=== PATIENT | male | born 1955 | race Caucasian/White ===

== ENCOUNTER 2022-12-18 13:29 | Outpatient (OUT) | payer MEDICARE, SELFPAY ==
--- NOTE | 2022-12-18 16:18 | CONS_ITS ---
CONSULTATION DATE: ??12/18/2022 CHIEF COMPLAINT:? Includes severe mid back pain. HISTORY OF PRESENT ILLNESS:? Review of systems, past medical/surgical history were obtained and documented on the health questionnaire and is available upon request. This patient presents to our office in a wheelchair.? At home, he ambulates with the use of a walker.? He reports having pain in the above mentioned area starting two years ago.? It occurred spontaneously, increased gradually to its present state.? Describes it as 5-7/10, deep aching pain character with a sharp component, increased with activities such as standing, walking and performing transitioning maneuvers.? He usually is quite sedentary and, again, ambulates with the use of a walker.? Denies any change in bowel and bladder habits or new sensorimotor changes in the lower extremities. EXAM:? His examination is notable for patient having dysesthesia and hyperesthesia over the distribution of left T8 dermatome, significant myofascial spasm of the thoracic paravertebral muscles as well.? He had nothing to suggest myelopathy involving his lower extremities and nothing to suggest facet loading pain clinically in the thoracolumbar spine on today?s visit, and nothing to suggest pathological fracture of his spinous process of his vertebral body in the thoracolumbar area.? IMPRESSION:? Our impression is patient appears to have chronic pain secondary to possible left T8 thoracic neuritis and myofascial dysfunction.? RECOMMENDATIONS:? I have recommended he undergo a thoracic MRI without contrast.? I have placed him on baclofen 5 mg pills, 1-2 pills b.i.d. as tolerated for his myofascial dysfunction, and aquatic therapy for reconditioning and gait relearning.? Will obtain thoracic spine films as well, PA and lateral views.? Will see the patient back in the office in approximately one month?s time or sooner if needed. As part of providing excellent, safe, comprehensive care, the following was completed at our patient's visit: 1. A medication reconciliation and review to ensure accurate knowledge of current/active medications, including asking our patients to inform us about any iuqh-vlk-kezvudt medications or herbal remedies/nutritional supplements/alternative remedies. 2. A review to specifically ensure our patients have had annual screening for: elevated body mass index (BMI, see intake chart for exact total), tobacco use, screening for depression, and screening for unhealthy alcohol use.? When screening is concerning, patients are provided with education and the specific recommendation to discuss the concerning health issue and treatment options with their primary care provider. ISMAEL
== END 2022-12-18 13:30 | disposition home or self-care (01) ==
LOC: PM 13:30
PROVIDERS: PCP Family Medicine; Visit Provider Anesthesiology
DX: G89.29 Other chronic pain (principal)
CPT/HCPCS: G0463

== ENCOUNTER 2023-01-02 13:59 | Outpatient (OUT) | payer MEDICARE, SELFPAY ==
--- NOTE | 2023-01-02 | MR_ITS ---
The [address] [address] Patient Name: ROCIO JACKSON MRN: [facility]:[id number] date: 1955 Sex: M Assigned Patient Location: MRI Current Patient Location: MRI Accession/Order Number: [id number] Exam Date: 01/02/2023 14:00 Report Date: 01/02/2023 17:02 At the request of: LONDON RIBEIRO Procedure: MR thoracic spine wo con EXAMINATION: MR thoracic spine wo con HISTORY: LEFT NEURITIS; THORACIC PAIN COMPARISON: 01/02/2023 plain x-ray, 11/23/2020 CT, 11/19/2022 TECHNIQUE: Axial T1 and T2; Sagittal T1, T2, and STIR sequences. Images were performed without and with ml Dotarem contrast. FINDINGS: CORD: Normal caliber, contour, and signal intensity. BONES: Normal alignment of the thoracic vertebral bodies with no acute fracture or spondylolisthesis. Area of signal abnormality in T3 vertebral body measuring 1.4 x 0.9 cm. 2 small 5 mm areas of signal abnormality C4 vertebral body. Area of signal abnormality 1.7 x 1.1 cm T5 vertebral body. r 1.9 cm area of signal abnormality posterior left T11 vertebral body extending into the pedicle best seen on sagittal image 5. Mild diffuse degenerative spondylosis. These lesions demonstrate decreased T1, increased T2 signal DISCS: No significant disc/facet abnormality, spinal stenosis, or foraminal stenosis. PARASPINAL AREA: No visible mass. OTHER: Negative. No abnormal contrast enhancement. IMPRESSION: Areas of signal abnormality in the thoracic spine as detailed above. The differential diagnosis would include atypical lipid poor vertebral hemangiomas versus metastatic disease. Electronically authenticated by: HALIMA ZEPEDA Date: 01/02/2023 17:02
--- NOTE | 2023-01-02 14:45 | XR_ITS ---
[address] [address] Patient Name: ROCIO JACKSON MRN: [facility]:[id number] date: 1955 Sex: M Assigned Patient Location: MRI Current Patient Location: MRI Accession/Order Number: [id number] Exam Date: 01/02/2023 14:45 Report Date: 01/02/2023 16:54 At the request of: LONDON RIBEIRO Procedure: XR thoracic spine 2V EXAMINATION: XR thoracic spine 2V HISTORY: Thoracic Pain COMPARISON: No relevant comparison available. FINDINGS: BONES: Mild moderate widespread spondylosis and facet osteoarthritis. No visible acute bony abnormality. DISC SPACES: Normal. No significant disc height narrowing, subluxation, or endplate abnormality. PARASPINOUS: Negative. No paraspinous abnormality is seen. OTHER: Negative. IMPRESSION: Moderate degenerative change Electronically authenticated by: HALIMA ZEPEDA Date: 01/02/2023 16:54
== END 2023-01-02 14:00 | disposition home or self-care (01) ==
LOC: MRI 13:59
PROVIDERS: PCP Family Medicine; Visit Provider Anesthesiology Pain Medicine
DX: M54.6 Pain in thoracic spine (principal); G58.8 Other specified mononeuropathies
CPT/HCPCS: 72070; 72146

== ENCOUNTER 2023-01-13 13:24 | Outpatient (OUT) | payer MEDICARE, SELFPAY ==
--- NOTE | 2023-01-13 | CONS_ITS ---
CONSULTATION DATE: ??01/13/2023 TO:? Carrie Caputo M.D. CHIEF COMPLAINT:? Includes left lower back pain. HISTORY:? He reports the pain as being sharp in character, increased with activities such as standing, walking and performing transitioning maneuvers.? Patient feels most comfortable in the semi-recumbent position.? Denies any change in bowel and bladder habits or new sensorimotor changes in the lower extremities.? He presents in a wheelchair, and he has difficulty even standing up from the wheelchair and requires, at times, two person lift at home for transitioning maneuvers.? EXAM:? This is a limited examination.? It does reveal the patient to have no clinical radiculopathy or myelopathy involving his lower extremities, but he did have severe pain with lumbar facet loading maneuvers.? This appeared to be on the left side from L2 through L5 with a moderate amount of pain with lumbar axial loading maneuvers and point tenderness overlying the L4-5 interspace.? He had associated myofascial spasm of the lumbar paravertebral muscles on the left side.? IMPRESSION:? Our impression is patient appears to have chronic pain.? From his modified, limited examination, it appears to be related to facet loading pain clinically secondary to spondylosis and myofascial spasm. RECOMMENDATIONS:? I have asked him to maintain his current dose of baclofen 10 mg pills, half a pill b.i.d., but to trial increasing it to half a pill t.i.d. on the days where he feels like he needs some extra relief secondary to patient suffering from myofascial spasm.? He just started home physical therapy.? I have asked him to continue with the same, and I have encouraged him to continue with his exercises on an independent basis.? All of his questions answered.? He agrees to proceed with the outlined plan.? We will see the patient back in the office in six weeks? time or sooner if needed. As part of providing excellent, safe, comprehensive care, the following was completed at our patient's visit: 1. A medication reconciliation and review to ensure accurate knowledge of current/active medications, including asking our patients to inform us about any bdgi-mkj-hlraczs medications or herbal remedies/nutritional supplements/alternative remedies. 2. A review to specifically ensure our patients have had annual screening for: elevated body mass index (BMI, see intake chart for exact total), tobacco use, screening for depression, and screening for unhealthy alcohol use.? When screening is concerning, patients are provided with education and the specific recommendation to discuss the concerning health issue and treatment options with their primary care provider. ISMAEL
== END 2023-01-13 13:25 | disposition home or self-care (01) ==
LOC: PM 13:26
PROVIDERS: PCP Family Medicine; Visit Provider Anesthesiology Pain Medicine
DX: M54.50 Low back pain, unspecified (principal); G89.29 Other chronic pain; M62.838 Other muscle spasm; M47.816 Spondylosis without myelopathy or radiculopathy, lumbar region
CPT/HCPCS: G0463

== ENCOUNTER 2023-01-19 14:35 | Inpatient (IN) | payer MEDICARE, SELFPAY ==
[2023-01-19] VITALS (24 sets, daily range): BP systolic 102–158; BP diastolic 67–106; PULSE 91–121; RESP 24–36; TEMP 37.7–38.2; O2SAT 95–99; BMI 22.0; BMI 21.8
--- NOTE | 2023-01-19 14:37 | ECG_ITS ---
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
--- NOTE | 2023-01-19 14:45 | ED.CHESTPAI1 ---
HPI - Chest Pain General Chief Complaint: Chest Pain Stated Complaint: CHEST PAIN Time Seen by Provider: 01/19/23 15:20 Source: patient Mode of arrival: ambulance Limitations: no limitations History of Present Illness HPI narrative: patient is a 67-year-old male with a history of myocardial infarction, coronary artery disease, hypertension, hypercholesterolemia who presents the emergency department by ambulance for the evaluation of left sided chest pain radiating into the left shoulder that began prior to arrival. He has a history of heart attack approximately twelve years ago and has two stents in place in his heart. He is anticoagulated with Eliquis for atrial fibrillation, no history of diabetes. patient is noted to be breathing rapidly at initial interview, he states this is normal for him because of his anxiety and will calm down when he feels better. He does not smoke. He has had no recent illness, cough, congestion, fevers, peripheral edema. He does not remember his last stress test or heart catheterization but believes it has been at least several years. EMS gave one nitroglycerin and patient reports pain is almost completely resolved at this time. Risk Factors Coronary artery disease risk factors: hyperlipidemia and hypertension Related Data Home Medications Medication Instructions Recorded Confirmed alprazolam 0.25 mg tablet 0.25 mg PO BID 12/22/22 12/22/22 apixaban 2.5 mg tablet (Eliquis) 2.5 mg PO BID 12/22/22 12/22/22 atorvastatin 40 mg tablet 40 mg PO QPM 12/22/22 12/22/22 baclofen 5 mg tablet 5 mg PO BID PRN muscle spasm 12/22/22 12/22/22 fluoxetine 20 mg capsule 20 mg PO DAILY 12/22/22 12/22/22 folic acid 1 mg tablet 1 mg PO DAILY 12/22/22 12/22/22 mwania-fjhrrfbk-nhpelxd 1 cap PO TID 12/22/22 12/22/22 24,000-76,000-120,000 unit capsule,delayed rel (Creon) metoclopramide HCl 10 mg tablet 10 mg PO TID 12/22/22 12/22/22 metoprolol succinate 25 mg capsule 25 mg PO DAILY 12/22/22 12/22/22 sprinkle, ext. release 24 hr sitagliptin phosphate 50 1 tab PO BID 12/22/22 12/22/22 mg-metformin 1,000 mg tablet (Janumet) Allergies Allergy/AdvReac Type Severity Reaction Status Date / Time No Known Drug Allergies Allergy Verified 12/22/22 12:51 Review of Systems ROS Constitutional Denies: fever or chills Ears, nose, mouth, and throat Denies: throat pain or neck pain Cardiovascular Reports: chest pain; Denies: palpitations or edema Respiratory Denies: shortness of breath or cough Gastrointestinal Denies: abdominal pain, nausea or vomiting Musculoskeletal Denies: back pain or neck pain Integumentary/Breast Denies: rash Neurological Denies: headache Psychiatric Reports: anxiety Endocrine Denies: excessive urination Allergic/Immunologic Denies: hives Exam Narrative Exam Narrative: Gen.: Awake, alert, in no distress Head: Normocephalic, atraumatic ENT: Moist mucous membranes Respiratory: No respiratory distress, lungs clear bilaterally Cardio: Tachycardia Gastrointestinal: Abdomen is soft, nondistended; small umbilical hernia Extremities: Moves extremities equally, no pedal edema Psych: Normal mood and affect Neuro: No focal neuro deficit Skin: Warm, dry, intact Constitutional Vital Signs, click to edit/add: Last Vital Signs Temp 100.5 F H 01/19/23 17:26 Pulse 112 H 01/19/23 17:26 Resp 36 H 01/19/23 17:26 BP 142/92 H 01/19/23 17:26 Pulse Ox 99 01/19/23 17:26 O2 Del Method Nasal Cannula 01/19/23 17:26 O2 Flow Rate 2 01/19/23 17:26 Course Vital Signs Vital signs: Vital Signs Temperature 100.5 F H 01/19/23 14:38 Pulse Rate 117 H 01/19/23 14:38 Respiratory Rate 24 01/19/23 14:38 Blood Pressure 126/73 H 01/19/23 14:38 Pulse Oximetry 95 01/19/23 14:38 Oxygen Delivery Method Room Air 01/19/23 14:38 Temperature 100.5 F H 01/19/23 17:26 Pulse Rate 112 H 01/19/23 17:26 Respiratory Rate 36 H 01/19/23 17:26 Blood Pressure 142/92 H 01/19/23 17:26 Pulse Oximetry 99 01/19/23 17:26 Oxygen Delivery Method Nasal Cannula 01/19/23 17:26 Oxygen Delivery Flow Rate 2 01/19/23 17:26 MDM - Chest Pain MDM Narrative Medical decision making narrative: patient reports no significant chest pain in the Emergency Room, he was given aspirin. Ativan was given for anxiety with improvement. Patient is in atrial fibrillation with RVR, heart rate is in the 100s-110s. He is anticoagulated. He was given 2 L of fluid as he has a temperature of 100.5 as well as an elevated heart rate and respirations 24. A septic workup was ordered and lactic acid is found to be elevated at 4.5. Patient received a 30mg/kg fluid bolus although his chest x-ray does not show any evidence of acute cardiopulmonary changes in his urine specimen is negative. He does not have any sputum production or significant cough in the Emergency Room. He did not report any other flulike illness. troponin and lactic acid will be repeated prior to admission, case is discussed with the hospitalist and we will admit for cardiac rule out, IV fluids and further evaluation. Patient is stable at this time. Medical Records Data Attestation: I reviewed the patient's medical records. Lab Data Attestation: I reviewed the patient's lab results. Labs: Lab Results 01/19/23 01/19/23 Range/Units 15:00 16:40 WBC 5.2 (4.0-11.0) 10^3/uL RBC 3.25 L (4.70-6.10) 10^6/uL Hgb 10.1 L (14.0-18.0) g/dL Hct 31.4 L (42.0-54.0) % MCV 96.6 H (80.0-94.0) fL MCH 31.1 (25.9-34.0) pg MCHC 32.2 (29.9-35.2) g/dL RDW 13.8 (11.0-15.0) % Plt Count 286 (150-450) 10^3/uL MPV 9.0 L (9.5-13.5) fL Neut % (Auto) 85.3 H (43.0-75.0) % Lymph % (Auto) 8.2 L (20.5-60.0) % [place] % (Auto) 5.7 (1.7-12.0) % Eos % (Auto) 0.4 L (0.9-7.0) % Baso % (Auto) 0.0 L (0.2-2.0) % Neut # (Auto) 4.5 (1.4-6.5) 10^3/uL Lymph # (Auto) 0.4 L (1.2-3.8) 10^3/uL [place] # (Auto) 0.3 (0.3-0.8) 10^3/uL Eos # (Auto) 0.0 (0.0-0.7) 10^3/uL Baso # (Auto) 0.0 (0.0-0.1) 10^3/uL Abs Immat Gran (auto) 0.02 (0.00-0.03) 10^3/uL Imm/Tot Granulo (auto) 0.4 (0.0-0.5) % PT 12.4 H (9.0-11.6) sec INR 1.18 APTT 32.8 (22.3-36.2) sec Sodium 136 (136-145) mmol/L Potassium 4.8 (3.5-5.1) mmol/L Chloride 103 (98-107) mmol/L Carbon Dioxide 22.6 (21.0-32.0) mmol/L Anion Gap 15.2 BUN 22.0 H (7.0-18.0) mg/dL Creatinine 0.95 (0.70-1.30) mg/dL Est GFR ( Amer) >60 (>=60) Est GFR (Non-Af Amer) >60 (>=60) BUN/Creatinine Ratio 23.2 Glucose 199 H (74-106) mg/dL Lactate 4.5 H* (0.4-2.0) mmol/L Calcium 8.4 L (8.5-10.1) mg/dL Total Bilirubin 0.3 (0.2-1.0) mg/dL AST 18 (15-37) U/L ALT 23 (16-63) U/L Alkaline Phosphatase 111 (46-116) U/L Troponin I High Sens 9.5 (4.0-76.1) pg/mL NT-Pro-B Natriuret Pep 615.0 (<=900.0) pg/mL Total Protein 7.3 (6.4-8.2) g/dL Albumin 3.0 L (3.4-5.0) g/dL Globulin 4.3 g/dL Albumin/Globulin Ratio 0.7 Urine Color Yellow (YELLOW) Urine Clarity Clear (CLEAR) Urine pH 5.5 (5.0-9.0) Ur Specific [place] >=1.030 A (1.005-1.025) Urine Protein Negative (NEG/TRACE) mg/dL Urine Glucose (UA) Negative (NEGATIVE) mg/dL Urine Ketones Negative (NEGATIVE) mg/dL Urine Occult Blood Negative (NEGATIVE) Urine Nitrite Negative (NEGATIVE) Urine Bilirubin Negative (NEGATIVE) Urine Urobilinogen 0.2 (0.2-1.0) EU/dL Ur Leukocyte Esterase Negative (NEGATIVE) Imaging Data Chest x-ray: Attestation: I have reviewed the pertinent imaging results. Radiologist's impression: Procedure: XR chest 1V EXAMINATION: XR chest 1V HISTORY: Dyspnea on exertion COMPARISON: None. TECHNIQUE: Portable chest FINDINGS: The lung parenchyma is free of consolidation or infiltrate. No pneumothorax or pleural effusion. The cardiac, mediastinal and hilar contours are normal. The visualized osseous structures exhibit no gross abnormality. IMPRESSION: No acute cardiopulmonary abnormality. Electronically authenticated by: HALIMA CARRASCO Date: 01/19/2023 16:12 ECG Data Attestation: I personally reviewed and interpreted this ECG as follows: (atrial fibrillation with rapid ventricular response at a rate of 123, artifact noted with no acute ST elevation or ectopy. EKG reviewed by attending physician) ECG interpretation date: 01/19/23 ECG interpretation time: 14:53 Heart Score History: Highly Suspicious ECG: Normal Age: >45-<65 years Risk Factors: >3 Risk Factors/ HX of CAD:2 Troponin: <Normal Limit Total Heart Score Recommendations & Risks:: 5 Discharge Plan Discharge Chief Complaint: Chest Pain Clinical Impression: SIRS (systemic inflammatory response syndrome), Chest pain Patient Disposition: Admitted as Observation Time of Disposition Decision: 17:08 Condition: Good
[2023-01-19] MEDS: ASPIRIN 81 MG TAB.CHEW 162 MG PO (14:54)
[2023-01-19] MEDS: LORAZEPAM 2 MG/ML 1 ML VIAL 0.5 MG IV (14:54)
[2023-01-19 15:09] LABS: Eosinophils Percent Auto 0.4 % (0.9-7.0); Hematocrit 31.4 % (42.0-54.0); Hemoglobin 10.1 g/dL (14.0-18.0); Immature Granulocytes Abs Auto 0.02 10^3/uL (0.00-0.03); Immature Granulocytes Pct Auto 0.4 % (0.0-0.5); Lymphocytes Absolute Auto 0.4 10^3/uL (1.2-3.8); Lymphocytes Percent Auto 8.2 % (20.5-60.0); Mean Corpuscular HGB Conc 32.2 g/dL (29.9-35.2); Mean Corpuscular Hemoglobin 31.1 pg (25.9-34.0); Mean Corpuscular Volume 96.6 fL (80.0-94.0); Monocytes Absolute Auto 0.3 10^3/uL (0.3-0.8); Monocytes Percent Auto 5.7 % (1.7-12.0); Neutrophils Absolute Auto 4.5 10^3/uL (1.4-6.5); Neutrophils Percent Auto 85.3 % (43.0-75.0); Platelet Count 286 10^3/uL (150-450); Red Blood Count 3.25 10^6/uL (4.70-6.10); Red Cell Distribution Width 13.8 % (11.0-15.0); White Blood Count 5.2 10^3/uL (4.0-11.0)
[2023-01-19 15:25] LABS: Alanine Aminotransferase 23 U/L (16-63); Albumin Globulin Ratio 0.7; Alkaline Phosphatase 111 U/L (46-116); Anion Gap 15.2; Aspartate Amino Transferase 18 U/L (15-37); BUN Creatinine Ratio 23.2; Bilirubin Total 0.3 mg/dL (0.2-1.0); Calcium 8.4 mg/dL (8.5-10.1); Carbon Dioxide 22.6 mmol/L (21.0-32.0); Chloride 103 mmol/L (98-107); Estimated GFR (African America >60 (>=60); Estimated GFR (Non-African Ame >60 (>=60); Globulin 4.3 g/dL; Glucose 199 mg/dL (74-106); Potassium 4.8 mmol/L (3.5-5.1); Sodium 136 mmol/L (136-145); Total Protein 7.3 g/dL (6.4-8.2)
[2023-01-19 15:30] LABS: Troponin I High Sensitivity 9.5 pg/mL (4.0-76.1)
[2023-01-19] MEDS: 0.9 % SODIUM CHLORIDE 1,000 ML 1000 ML (15:48)
--- NOTE | 2023-01-19 15:50 | XR_ITS ---
[address] [address] Patient Name: ROCIO JACKSON MRN: [id number] date: 1955 Sex: M Assigned Patient Location: ER Current Patient Location: ER Accession/Order Number: [id number] Exam Date: 01/19/2023 15:45 Report Date: 01/19/2023 16:12 At the request of: LEOLA DUNN Procedure: XR chest 1V EXAMINATION: XR chest 1V HISTORY: Dyspnea on exertion COMPARISON: None. TECHNIQUE: Portable chest FINDINGS: The lung parenchyma is free of consolidation or infiltrate. No pneumothorax or pleural effusion. The cardiac, mediastinal and hilar contours are normal. The visualized osseous structures exhibit no gross abnormality. XR/XR chest 1V IMPRESSION: No acute cardiopulmonary abnormality. Electronically authenticated by: HALIMA CARRASCO Date: 01/19/2023 16:12
[2023-01-19 15:56] LABS: Lactate/Lactic Acid 4.5 mmol/L (0.4-2.0)
[2023-01-19 16:10] LABS: INR 1.18; Partial Thromboplastin Time 32.8 sec (22.3-36.2); Prothrombin Time 12.4 sec (9.0-11.6)
[2023-01-19] MEDS: 0.9 % SODIUM CHLORIDE 1,000 ML 1000 ML IV (16:22)
[2023-01-19 16:51] LABS: Bilirubin Urine NEGATIVE (NEGATIVE); Blood Urine NEGATIVE (NEGATIVE); Clarity Urine CLEAR (CLEAR); Color Urine YELLOW (YELLOW); Glucose Urine UA NEGATIVE (NEGATIVE); Ketones Urine NEGATIVE (NEGATIVE); Leukocyte Esterase Urine NEGATIVE (NEGATIVE); Nitrite Urine NEGATIVE (NEGATIVE); Protein Urine NEGATIVE (NEG/TRACE); Specific Gravity Urine >=1.030 (1.005-1.025); Urobilinogen Urine 0.2 EU/dL (0.2-1.0); pH Urine 5.5 (5.0-9.0)
[2023-01-19 16:52] LABS: Urine Microscopic Indicated NO
--- NOTE | 2023-01-19 17:33 | CT_ITS ---
[address] [address] Patient Name: ROCIO JACKSON MRN: [facility]:[id number] date: 1955 Sex: M Assigned Patient Location: ER Current Patient Location: ICU Accession/Order Number: [id number] Exam Date: 01/19/2023 18:15 Report Date: 01/19/2023 19:20 At the request of: SHAIKH SALIMA Procedure: CT angio chest EXAMINATION: CT angio chest, 01/19/2023 6:15 PM EDT HISTORY: SOB COMPARISON: None. TECHNIQUE: CT angiography of the chest was performed with IV contrast. MIP (maximum intensity projection) images or 3D post processing was performed. CT dose reduction technique was used, including Automated Exposure Control. FINDINGS: VASCULATURE/PULMONARY ARTERIES: There is satisfactory opacification of the pulmonary arterial system. There is no evidence of pulmonary embolism. The main pulmonary artery is normal in diameter. The aorta and great vessels appear normal. HEART/PERICARDIUM: Focal calcification is seen in the left ventricular wall in the region of the distal septum/apex (series 4, image 71). Extensive coronary artery calcifications are noted. There is no pericardial effusion. MEDIASTINAL/HILAR LYMPH NODES: No lymphadenopathy. ESOPHAGUS: Mild circumferential wall thickening of the distal esophagus. PLEURAL CAVITY: No pleural effusion or pneumothorax. LUNGS/AIRWAYS: Bibasilar subsegmental atelectasis. No infiltrates or consolidations. No suspicious pulmonary nodules. CHEST WALL/AXILLA/LOWER NECK: Normal. VISUALIZED UPPER ABDOMEN: Status post cholecystectomy. There is pneumobilia. There is a pancreatic duct stent noted with diffuse atrophy of the pancreas. BONES: No acute process. CT/CT angio chest IMPRESSION: 1. No evidence of pulmonary embolism. 2. No other acute cardiopulmonary process. 3. Pancreatic duct stent. Pneumobilia. 4. Mild circumferential wall thickening of the distal esophagus. Electronically authenticated by: GERARD THIBODEAUX Date: 01/19/2023 19:20
[2023-01-19 17:59] LABS: Amphetamine Screen Urine NEGATIVE (NEGATIVE); Barbiturates Screen Urine NEGATIVE (NEGATIVE); Benzodiazepines Screen Urine POSITIVE (NEGATIVE); Buprenorphine Screen Urine NEGATIVE (NEGATIVE); Cannabinoid Screen Urine NEGATIVE (NEGATIVE); Cocaine Screen Urine NEGATIVE (NEGATIVE); Methadone Screen Urine NEGATIVE (NEGATIVE); Methamphetamines Screen Urine NEGATIVE (NEGATIVE); Opiate Screen Urine NEGATIVE (NEGATIVE); Oxycodone Screen Urine NEGATIVE (NEGATIVE); Phencyclidine Screen Urine NEGATIVE (NEGATIVE); Tricyclic Antidepressant Urine NEGATIVE (NEGATIVE)
[2023-01-19 18:03] LABS: Percent Iron Saturation 13.2 %
[2023-01-19 18:20] LABS: Lactate/Lactic Acid 3.7 mmol/L (0.4-2.0)
[2023-01-19 18:30] LABS: Creatine Kinase 93 U/L (39-308); Creatine Kinase MB 2.57 ng/mL (<=3.60); Troponin I High Sensitivity 15.4 pg/mL (4.0-76.1)
[2023-01-19] MEDS: LACTATED RINGER'S SOLUTION 1,000 ML 125 ML IV (21:20)
[2023-01-19] MEDS: BACLOFEN 10 MG TABLET 5 MG PO (21:21)
[2023-01-19] MEDS: ATORVASTATIN CALCIUM 40 MG TABLET PO (21:21)
[2023-01-19] MEDS: ALPRAZOLAM 0.25 MG TABLET PO (21:22)
[2023-01-19] MEDS: APIXABAN 5 MG TABLET 2.5 MG PO (21:22)
[2023-01-19] MEDS: ACETAMINOPHEN 325 MG TABLET 650 MG PO (21:25)
[2023-01-19 23:05] LABS: Glucometer 140 mg/dL (74-106)
[2023-01-19] MEDS: LIPASE/PROTEASE/AMYLASE CAPSULE 1 CAP PO (23:19)
[2023-01-20] VITALS (83 sets, daily range): BP systolic 77–115; BP diastolic 57–78; PULSE 78–128; RESP 0–53; TEMP 36.6–37.4; O2SAT 94–99; BMI 21.8
[2023-01-20 04:45] LABS: Basophils Percent Auto 0.3 % (0.2-2.0); Eosinophils Absolute Auto 0.1 10^3/uL (0.0-0.7); Eosinophils Percent Auto 1.8 % (0.9-7.0); Hematocrit 25.9 % (42.0-54.0); Hemoglobin 8.3 g/dL (14.0-18.0); Immature Granulocytes Abs Auto 0.01 10^3/uL (0.00-0.03); Immature Granulocytes Pct Auto 0.3 % (0.0-0.5); Lymphocytes Absolute Auto 1.2 10^3/uL (1.2-3.8); Lymphocytes Percent Auto 29.6 % (20.5-60.0); Mean Corpuscular Hemoglobin 31.1 pg (25.9-34.0); Mean Platelet Volume 9.2 fL (9.5-13.5); Monocytes Absolute Auto 0.5 10^3/uL (0.3-0.8); Monocytes Percent Auto 12.6 % (1.7-12.0); Neutrophils Absolute Auto 2.2 10^3/uL (1.4-6.5); Neutrophils Percent Auto 55.4 % (43.0-75.0); Platelet Count 239 10^3/uL (150-450); Red Blood Count 2.67 10^6/uL (4.70-6.10); Red Cell Distribution Width 14.1 % (11.0-15.0); White Blood Count 3.9 10^3/uL (4.0-11.0)
[2023-01-20 05:10] LABS: Alanine Aminotransferase 19 U/L (16-63); Albumin Globulin Ratio 0.7; Albumin Level 2.4 g/dL (3.4-5.0); Alkaline Phosphatase 80 U/L (46-116); Anion Gap 12.4; Aspartate Amino Transferase 14 U/L (15-37); BUN Creatinine Ratio 24.1; Bilirubin Total 0.2 mg/dL (0.2-1.0); Calcium 7.8 mg/dL (8.5-10.1); Carbon Dioxide 22.6 mmol/L (21.0-32.0); Chloride 105 mmol/L (98-107); Estimated GFR (African America >60 (>=60); Estimated GFR (Non-African Ame >60 (>=60); Globulin 3.5 g/dL; Glucose 149 mg/dL (74-106); Sodium 136 mmol/L (136-145); Total Protein 5.9 g/dL (6.4-8.2)
[2023-01-20] MEDS: LACTATED RINGER'S SOLUTION 1,000 ML 125 ML IV ×4 (06:22→22:47)
--- NOTE | 2023-01-20 07:13 | CA_ITS ---
Patient: ROCIO JACKSON Exam Date: 01/20/2023 : 1955 Gender:M Ordering : SHAIKH Nellie BORREGO . Admission #: [id number] Family : Order #: [id number] CLICK HERE TO VIEW EXAM ECHOCARDIOGRAM REPORT PROCEDURE: CA ECHO DOPPLER COMPLETE INDICATIONS: Chest pain COMPARISON: None. DESCRIPTION: COMPLETE ECHOCARDIOGRAM Real-time transthoracic echocardiography with 2D, M-mode, spectral and color flow Doppler performed. QUALITY: Technical quality was limited. LEFT VENTRICLE: Left ventricle is normal in size. Global left ventricular systolic function appears at the lower limits of normal. LV EF: Calculated left ventricular ejection fraction is 50%. DIASTOLIC: Grade I diastolic dysfunction. ATRIAL SEPTUM: LEFT ATRIUM: Normal chamber size. RIGHT ATRIUM: Normal chamber size. RIGHT VENTRICLE: Normal chamber size. Normal right ventricular systolic function. TRICUSPID VALVE: Grossly normal. No stenosis with trivial regurgitation. No evidence of pulmonary hypertension. MITRAL VALVE: Grossly normal. No evidence of mitral valve stenosis. There is no mitral annular calcification. Mild mitral regurgitation. AORTIC VALVE: Grossly normal. No evidence of aortic valve stenosis. Trivial aortic regurgitation. AORTIC ROOT: PULMONIC VALVE: Not well visualized. PERICARDIUM: No evidence of pericardial effusion. IVC: Not well visualized. PLEURA: CONCLUSION: 1. Technically limited study with no parasternal windows available for imaging with only apical windows available. 2. Left ventricular systolic function appears at the lower limits of normal. LV ejection fraction is 50%. 3. Normal right ventricular size and systolic function. 4. No significant valvular abnormalities seen. 5. No pericardial effusion. Adult Echocardiography Procedure Report Left Ventricle LVOT Max Gradient: 4 mm[Hg] Peak Velocity (LVOT): 102.00 cm/s Mean Velocity (LVOT): 59.10 cm/s LVOT Diameter 2.30 cm Left Atrium LA Volume Index (2D A2C): 22468 mm3 Mitral Valve MV E to A Ratio: 0.90 Mitral Valve A-Wave Peak Velocity: 77.00 cm/s Mitral Valve E-Wave Peak Velocity: 70.60 cm/s Right Ventricle Aorta Aortic Valve AoV Area (Peak Vimal): 4.07 cm2 AoV Area (VTI): 3.79 cm2 Peak Velocity(Antegrade Flow): 104.00 cm/s Peak Gradient(Antegrade Flow): 4 mm[Hg] Mean Velocity(Antegrade Flow): 68.50 cm/s Mean Gradient(Antegrade Flow): 2 mm[Hg] Velocity Time Integral: 18.30 cm Tricuspid Valve Peak Velocity (Regurgitant Flow): 242.00 cm/s Peak Velocity: 51.80 cm/s Pulmonic Valve Right Atrium Dictated by: Barrera Schneider M.D. on 01/20/2023 at 19:06 Approved by: Barrera Schneider M.D. on 01/20/2023 at 19:10
[2023-01-20 07:58] LABS: Glucometer 107 mg/dL (74-106)
[2023-01-20] MEDS: FOLIC ACID 1 MG TABLET PO (08:03)
[2023-01-20] MEDS: FLUOXETINE HCL 20 MG CAPSULE PO (08:04)
[2023-01-20] MEDS: ALPRAZOLAM 0.25 MG TABLET PO ×2 (08:05→20:44)
[2023-01-20] MEDS: METOPROLOL SUCCINATE 25 MG TAB.ER.24H PO (08:05)
[2023-01-20] MEDS: APIXABAN 5 MG TABLET 2.5 MG PO (08:06)
--- NOTE | 2023-01-20 10:54 | CM.NOTE ---
Outpatient Observation Notice discussed with pt, pt verbalizes understanding and signs paper. Original given to pt and copy placed on pt's chart.
[2023-01-20] MEDS: INSULIN ASPART 300 UNIT/3 ML PEN SUBQ ×2 (11:47→21:11)
[2023-01-20 12:02] LABS: Glucometer 304 mg/dL (74-106); Glucometer 308 mg/dL (74-106)
[2023-01-20 12:12] LABS: Creatine Kinase 98 U/L (39-308); Creatine Kinase MB 1.99 ng/mL (<=3.60); Myoglobin 76 ng/mL (16-96); Troponin I High Sensitivity 14.3 pg/mL (4.0-76.1)
--- NOTE | 2023-01-20 13:07 | DIETREC ---
Recommend Ensure 1 container po bid R/T loss of muscle mass and loss of subcutaneous fat
[2023-01-20 13:18] LABS: Hematocrit 28.7 % (42.0-54.0); Hemoglobin 9.3 g/dL (14.0-18.0)
--- NOTE | 2023-01-20 13:46 | CM.NOTE ---
Called to verify pt is current with [facility], he is current with them and updates sent.
[2023-01-20] MEDS: LIPASE/PROTEASE/AMYLASE CAPSULE 1 CAP PO ×2 (13:58→21:21)
[2023-01-20 14:01] LABS: Lactate Dehydrogenase 155 U/L (85-227)
[2023-01-20] MEDS: CEFTRIAXONE 1,000 MG in 0.9 % SODIUM CHLORIDE 50 ML 100 MG IV (14:08)
--- NOTE | 2023-01-20 14:20 | P.HP_ITS ---
H&P: HPI History of Present Illness Chief complaint: CHEST PAIN R/O ACS Narrative: 67 y o male was in his usual state of health when he had sudden onset left sided chest pain, associated SOB for which he took SL Nitroglycerin that resulted in resolution of his pain. Pt has hx of Afib, CAD and follows [facility] for his cardiac problems. Patient denies cough, nausea, vomiting, abdominal pain, change in bowel habits. In ED, he was noted to have Afib with HR > 100, RR > 20 with temoerature of 100.4 meeting SIRS criteria. He was given rocephin empirically as there was no source of infection identified on initial w/u. When I evaluated him today, he did not have any complaints to offer. He looks disheveled, very weak and could not even get up from a seated her bed even with my help. He lives at home and ambulates using a walker but I find it hard to believe given his current physical condition. He denies CP currently. He was breathing fast, and using accessory muscles but when inquired about it, he said he does that when he is anxious and denied any resp symptoms to me. Review of Systems ROS Status of ROS 10 or more systems reviewed and unremarkable except as noted in history and below [facility] Medical History (Updated 01/20/23 @ 19:55 by Shaikh Melody MD) Surgical History Family History Father Family history of COPD (chronic obstructive pulmonary disease) Family history of CHF (congestive heart failure) Mother Family history of diabetes mellitus Social History Within the past year, how often did you have a drink containing alcohol: monthly or less Within the past year, how many standard drinks containing alcohol did you have on a typical day: 1 or 2 Within the past year, how often did you have six or more drinks on one occasion: never Total score: 0 Score interpretation: A score less than 4 is consistent with normal alcohol consumption. 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 Known occupational exposures/hazards: Yes Known occupational exposures/hazards details: dust Highest level of school completed/degree received: high school graduate Are you now , , , , never or living with a partner: In a typical week, how many times do you talk on the telephone with family, frie nds, or neighbors: 3 or more times per week How often do you get together with friends or relatives: 3 or more times per week How often do you attend jehovah's witness or muslim services: never Do you belong to any clubs or organizations such as jehovah's witness groups unions, [employer] or athletic groups, or school groups: no Total score: 1 Score interpretation: A score of less than or equal to 1 indicates the most socially isolated. Little interest or pleasure in doing things: several days Feeling down, depressed, or hopeless: several days Feel stressed/tense/nervous/anxious/difficulty sleeping: not at all Due to disability, difficulty making decisions: No Meds Home Medications and Allergies Home Medications Medication Instructions Recorded Confirmed Type alprazolam 0.25 mg tablet 0.25 mg PO BID 12/22/22 01/19/23 History apixaban 2.5 mg tablet (Eliquis) 2.5 mg PO BID 12/22/22 01/19/23 History atorvastatin 40 mg tablet 40 mg PO QPM 12/22/22 01/19/23 History baclofen 5 mg tablet 5 mg PO BID PRN muscle spasm 12/22/22 01/20/23 History fluoxetine 20 mg capsule 20 mg PO DAILY 12/22/22 01/19/23 History folic acid 1 mg tablet 1 mg PO DAILY 12/22/22 01/19/23 History eydstk-fshrzdzv-yeihmqu 1 cap PO TID 12/22/22 01/19/23 History 24,000-76,000-120,000 unit capsule,delayed rel (Creon) metoclopramide HCl 10 mg tablet 10 mg PO TID 12/22/22 01/19/23 History metoprolol succinate 25 mg capsule 25 mg PO DAILY 12/22/22 01/19/23 History sprinkle, ext. release 24 hr sitagliptin phosphate 50 1 tab PO BID 12/22/22 01/19/23 History mg-metformin 1,000 mg tablet (Janumet) baclofen 10 mg tablet 5 mg PO BID PRN muscle spasm 01/19/23 01/20/23 History mirtazapine 15 mg tablet 15 mg PO .QHS PRN Not Specified 01/19/23 01/20/23 History Allergies Allergy/AdvReac Type Severity Reaction Status Date / Time No Known Drug Allergies Allergy Verified 12/22/22 12:51 Exam Constitutional Vital Signs, click to edit/add: Last Vital Signs Temp 99.4 F 01/20/23 11:00 Pulse 91 H 01/20/23 14:00 Resp 26 H 01/20/23 11:00 BP 115/76 01/20/23 11:00 Pulse Ox 98 01/20/23 11:56 O2 Del Method Room Air 01/20/23 11:00 O2 Flow Rate 2 01/19/23 17:26 Documenting provider has reviewed patient's vital signs: yes Common normals: no apparent distress General appearance: cooperative, comfortable, disheveled and frail appearing Nutritional appearance: thin HENMT Common normals: normocephalic and head/scalp atraumatic Eye Common normals: conjunctivae normal and no scleral icterus Respiratory Common normals: clear to auscultation bilaterally Effort & inspection: able to speak in complete sentences, tachypneic and uses accessory muscles Auscultation: clear to auscultation bilaterally Cardio Common normals: no JVD, regular rhythm, S1 normal heart sound and S2 normal heart sound GI Common normals: Normal to inspection, nondistended, normoactive bowel sounds present (except for surgical scar in midline), soft to palpation and no hepatosplenomegaly Extremity Common normals: normal to inspection and full ROM Neuro Common normals: oriented x3, CN's II-XII intact bilaterally, moves all extre mities, no focal motor deficits and no sensory deficits noted Psych Common normals: mental status grossly normal, cooperative, denies hallucinations, denies homicidal ideation and denies suicidal ideation Results Labs Labs: Short CBC 01/19/23 01/20/23 01/20/23 Range/Units 15:00 04:04 13:00 WBC 5.2 3.9 L (4.0-11.0) 10^3/uL Hgb 10.1 L 8.3 L 9.3 L (14.0-18.0) g/dL Hct 31.4 L 25.9 L 28.7 L (42.0-54.0) % Plt Count 286 239 (150-450) 10^3/uL BMP 01/19/23 01/20/23 15:00 04:04 Sodium 136 136 Potassium 4.8 4.0 Chloride 103 105 Carbon Dioxide 22.6 22.6 BUN 22.0 H 19.0 H Creatinine 0.95 0.79 Glucose 199 H 149 H Calcium 8.4 L 7.8 L Cardiac Enzymes 01/19/23 01/20/23 Range/Units 17:33 04:04 Total Creatine Kinase 93 98 (39-308) U/L CK-MB (CK-2) 2.57 1.99 (<=3.60) ng/mL Liver Function 01/19/23 01/20/23 Range/Units 15:00 04:04 Total Bilirubin 0.3 0.2 (0.2-1.0) mg/dL AST 18 14 L (15-37) U/L ALT 23 19 (16-63) U/L Alkaline Phosphatase 111 80 (46-116) U/L Albumin 3.0 L 2.4 L (3.4-5.0) g/dL Urine 01/19/23 Range/Units 16:40 Urine Color Yellow (YELLOW) Urine Clarity Clear (CLEAR) Urine pH 5.5 (5.0-9.0) Ur Specific [place] >=1.030 A (1.005-1.025) Urine Protein Negative (NEG/TRACE) mg/dL Urine Glucose (UA) Negative (NEGATIVE) mg/dL Assessment and Plan Assessment and Plan (1) SIRS (systemic inflammatory response syndrome): Assessment and Plan: SIRS positive but no source of infection identified. No evidence of UTI/Pneumonia on w/u On rocephin for empirical treatment. Continue for now. F/u cultures. Will order CT abd/pelvis to r/o intra abdominal infection. (2) Chest pain: Assessment and Plan: Trop x 3 negative. Resolved. C/w ASA, statin and Toprol Prior hx of PCI few years ago. Patient can't recall when. Follows [facility] heart - records requested 2D ECHO no sig WMA, mildly low EF, no sig valvular pathology. 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 (4) Anemia: Assessment and Plan: Iron profile c/w anemia of chronic disease. Stable. No overt bleeding. Unsure of when he had any Colonoscopy/EGD Denies melena/BRBPR Qualifiers: Anemia type: unspecified type Qualified Code(s): D64.9 - Anemia, unspecified (5) Lactic acidosis: Assessment and Plan: Likely due to hypoperfusion/hypovolemia. on IVF. Improved with hydration. (6) H/O pancreatic cancer: Assessment and Plan: s/p whipple procedure. on pancreatic enzyme replacement. Reports seeing hemonc past month and that he is in remission. C/w pancreatic enzymes. (7) Type 2 diabetes mellitus: Assessment and Plan: FSBS fluctuating. Sliding scale insulin for now. Hold oral hypoglycemics while inpatient. Qualifiers: Diabetes mellitus shelter insulin use: without shelter use Diabetes mellitus complication status: without complication Qualified Code(s): E11.9 - Type 2 diabetes mellitus without complications (8) Depression with anxiety: Assessment and Plan: On Mirtazapine, Prozac and Xanax. Denies si/hi. Reports feeling anxious. (9) Afib: Assessment and Plan: Initially Afib with rvr when arrived. Now in nsr. C.w toprol. eliquis for AC. (10) Malnutrition: Assessment and Plan: low Protein/with hypoalbuminemia, BMI is normal but appears to have lost weight in past few months. [employer] consult (11) Generalized weakness: Assessment and Plan: v weak, requites 2 person assist for even smaller tasks. PT/OT eval ordered. Plan Initially admitted as observation but changed to inpatient due to ongoing unresolved clinical problems, monitoring, concern for clinical worsening, anemia, SIRS, generalized weakness. Anticipate to stay atleast 2 midnights.
--- NOTE | 2023-01-20 14:46 | CM.NOTE ---
Discussed with pt about PT evaluation and concern with him going home d/t his weakness. Pt voices wishes to return home with HH. Explained to pt benefits of going inpt for skilled and more intense therapy d/t his increased weakness. Pt in agreement to check with [facility] for skilled therapy. Pt states he has been there in the past. Called and spoke with Radha at [facility], they do have bed availability. New Referral was sent to [facility]. Update given to [facility]. Talked with pt to let him know referral has been sent and we are just waiting to see if they accept him for skilled therapy. Pt verbalizes understanding.
--- NOTE | 2023-01-20 15:44 | PC.NURSE ---
Bedside RN requested nail care for patient. His nails are thickened, elongated. Nails 4 and 5 bilaterally are extremely long and wrap under toe. Nails cleaned prior to nail care with alcohol swabs. All nails trimmed with nail nippers. No complications. No skin breakdown noted under length of nail. All nails filed with alli. Patient tolerated well. Nails cleansed again after nail care to clean debris.
[2023-01-20 16:37] LABS: Glucometer 82 mg/dL (74-106)
--- NOTE | 2023-01-20 17:54 | CT_ITS ---
[facility] [address], [place] [address] Patient Name: ROCIO JACKSON MRN: [facility]:[id number] date: 1955 Sex: M Assigned Patient Location: ICU Current Patient Location: ICU Accession/Order Number: [id number] Exam Date: 01/20/2023 17:42 Report Date: 01/20/2023 21:51 At the request of: SHAIKH SALIMA Procedure: CT abdomen pelvis w con EXAM: CT abdomen pelvis w con HISTORY: ABDOMINAL PAIN COMPARISON: CT from 11/23/2020 TECHNIQUE: CT abdomen pelvis w con FINDINGS: LOWER CHEST: LUNG BASES / PLEURA: Normal. DISTAL ESOPHAGUS: Mild diffuse esophageal wall thickening. HEART / VESSELS: Severe coronary artery disease. ABDOMEN and PELVIS: LIVER: Normal. BILIARY TRACT: Mild intrahepatic biliary ductal dilatation, similar to prior exams. Trace pneumobilia in the left hepatic lobe, improved from prior exams. GALLBLADDER: Absent. PANCREAS: Changes from pancreatic head resection. Pancreatic duct stent in place, unchanged. SPLEEN: Normal. ADRENALS: Normal. KIDNEYS: Normal. LYMPH NODES: Multiple enlarged central mesenteric lymph nodes, for example a central node measuring 0.8 cm in short axis (image 76 of series 3). This is new from the prior exam. There are also a few prominent lymph nodes near the site of focally thickened small bowel, for example the node measuring 0.7 cm in short axis on image 99 of series 3. STOMACH / SMALL BOWEL: Resection of the distal stomach with small bowel anastomosis. No obstruction or stricture is noted. However, there is mild mucosal thickening of the small bowel just distal to the gastrojejunal anastomosis (image 47 of series 3). In the lower abdomen, there is a focally thickened loop of small bowel measuring 7.6 cm, with the wall measuring 1.4 cm in maximal thickness (image 111 of series 3). COLON / APPENDIX: Moderate gas and colonic fecal burden. The appendix is normal. PERITONEUM / MESENTERY: Mild diffuse mesenteric edema. Small volume free fluid in the pelvis. RETROPERITONEUM: Normal. VESSELS: Mild atherosclerotic disease of the normal caliber abdominal aorta and its major branches. URINARY BLADDER: Within normal limits. REPRODUCTIVE ORGANS: No abnormality. BODY WALL: Mild soft tissue anasarca. MUSCULOSKELETAL: 6 lumbar type vertebral bodies with lumbarization of S1 and pseudoarticulation of the left S1 transverse process with the left sacral ala (Bertolotti syndrome). CT/CT abdomen pelvis w con IMPRESSION: 1. Focally thickened loop of small bowel in the lower abdomen, suspicious for primary small bowel neoplasm. Small bowel lymphoma is a consideration given the suspected pseudoaneurysmal dilatation of the segment of small bowel. Metastatic disease is also consideration given the history of malignancy. Inflammatory and infectious etiologies are felt less likely. 2. Multiple enlarged central mesenteric and periintestinal lymph nodes as described above. Metastatic disease cannot be excluded. 3. Mild diffuse esophageal wall thickening, esophagitis should be considered. Impressions 1 and 2 were placed in the incidental findings folder. Electronically authenticated by: FADY DILLARD Date: 01/20/2023 21:51
[2023-01-20] MEDS: ATORVASTATIN CALCIUM 40 MG TABLET PO (20:44)
[2023-01-20 21:16] LABS: Glucometer 175 mg/dL (74-106)
[2023-01-21] VITALS (70 sets, daily range): BP systolic 90–113; BP diastolic 64–74; PULSE 63–94; RESP 0–55; TEMP 36.4–37.3; O2SAT 94–99
[2023-01-21 03:18] LABS: Transferrin 125 mg/dL (177-329)
[2023-01-21 05:05] LABS: Basophils Percent Auto 0.3 % (0.2-2.0); Eosinophils Absolute Auto 0.2 10^3/uL (0.0-0.7); Eosinophils Percent Auto 4.8 % (0.9-7.0); Hematocrit 26.8 % (42.0-54.0); Hemoglobin 8.3 g/dL (14.0-18.0); Immature Granulocytes Abs Auto 0.01 10^3/uL (0.00-0.03); Immature Granulocytes Pct Auto 0.3 % (0.0-0.5); Lymphocytes Absolute Auto 1.2 10^3/uL (1.2-3.8); Lymphocytes Percent Auto 35.1 % (20.5-60.0); Mean Corpuscular Hemoglobin 31.2 pg (25.9-34.0); Mean Corpuscular Volume 100.8 fL (80.0-94.0); Mean Platelet Volume 9.4 fL (9.5-13.5); Monocytes Absolute Auto 0.4 10^3/uL (0.3-0.8); Monocytes Percent Auto 10.8 % (1.7-12.0); Neutrophils Absolute Auto 1.6 10^3/uL (1.4-6.5); Neutrophils Percent Auto 48.7 % (43.0-75.0); Platelet Count 227 10^3/uL (150-450); Red Blood Count 2.66 10^6/uL (4.70-6.10); Red Cell Distribution Width 14.3 % (11.0-15.0); White Blood Count 3.3 10^3/uL (4.0-11.0)
[2023-01-21 05:28] LABS: Alanine Aminotransferase 16 U/L (16-63); Albumin Globulin Ratio 0.6; Albumin Level 2.1 g/dL (3.4-5.0); Alkaline Phosphatase 69 U/L (46-116); Anion Gap 13.6; Aspartate Amino Transferase 14 U/L (15-37); BUN Creatinine Ratio 23.3; Bilirubin Total 0.1 mg/dL (0.2-1.0); Calcium 7.6 mg/dL (8.5-10.1); Carbon Dioxide 22.3 mmol/L (21.0-32.0); Chloride 106 mmol/L (98-107); Estimated GFR (African America >60 (>=60); Estimated GFR (Non-African Ame >60 (>=60); Globulin 3.4 g/dL; Glucose 89 mg/dL (74-106); Potassium 3.9 mmol/L (3.5-5.1); Sodium 138 mmol/L (136-145); Total Protein 5.5 g/dL (6.4-8.2)
[2023-01-21] MEDS: LIPASE/PROTEASE/AMYLASE CAPSULE 1 CAP PO (05:33)
[2023-01-21] MEDS: LACTATED RINGER'S SOLUTION 1,000 ML 125 ML IV (06:43)
[2023-01-21 08:51] LABS: Lactate Dehydrogenase 133 U/L (85-227)
[2023-01-21] MEDS: METOPROLOL SUCCINATE 25 MG TAB.ER.24H PO (08:56)
[2023-01-21] MEDS: FLUOXETINE HCL 20 MG CAPSULE PO (08:56)
[2023-01-21] MEDS: ALPRAZOLAM 0.25 MG TABLET PO ×2 (08:56→21:57)
[2023-01-21] MEDS: SENNOSIDES 8.6 MG TABLET PO (08:56)
[2023-01-21] MEDS: FOLIC ACID 1 MG TABLET PO (08:57)
--- NOTE | 2023-01-21 10:00 | REH.PTDLY ---
Physical Therapy Daily Note PT Daily Note/Assess Start: 01/21/23 09:49 Freq: Status: Active Protocol: Document 01/21/23 09:49 SHIRLENE (Rec: 01/21/23 10:00 SHIRLENE [id number]) Physical Therapy Daily Note/Assessment Time In 09:15 Time Out 09:45 Pain Level 0 Pain Level 0 Subjective Nursing in room with pt upon arrival. Agreeable to therapy, no complaints at this time. Therapeutic Exercise Minutes (minutes) 12 Therapeutic Exercise Units 1 Therapeutic Exercise Treatment Instructed pt in B LE supine AP, QS and SLR 10x ea with no complaints. Pt able to perform SLR without distress. B LE seated exs 10x ea with exs including LAQ, hip abd, hip add, and marching. Therapeutic Activity Minutes (minutes) 11 Therapeutic Activity Units 1 Bed Mobility Ability Minimum Assist Chair Transfer Ability Minimum Assist Therapeutic Activity Comments Pt slowly able to transfer from supine to sit at bedside with Min A and cues from therapist for pt to succeed. Sit to stand transfers Min A x2. Gait training with RW from bed to chair Min A x2 with verbal and tactile cues for proper sequence. Pt transfers slowly but able to do so with improvement Total Therapy Minutes 23 Total Physical Therapy Units 2 Daily Note Summary Pt has improved transfers compared to yesterday, able to perform with Min A x2 today. Does require several cues tactile and verbally. Pt will benefit from SNF stay to gain strength for ease of functional mobility to return home safely
--- NOTE | 2023-01-21 10:07 | CM.NOTE ---
Rounding with Dr. Oliver and nurse Angelika. Pt. sitting up in chair at bedside. discussed CT of abdomen and pelvis regarding concern for possible return of cancer. Oncology is consulted and available by phone in hospital. Pt. states he sees oncology at [facility] in the [facility] area. Pt. remains willing to go to SNF upon discharge. Nurse to get records from [facility].
--- NOTE | 2023-01-21 10:18 | CM.NOTE ---
Radha from [facility] called and they can accept pt for skilled therapy at discharge. Dr. Oliver notified.
--- NOTE | 2023-01-21 10:22 | CM.NOTE ---
Pt wanted Carmela Monique to update his daughter, called daughter Shiela to let her know he was interested in going skilled at discharge and [facility] was able to take pt upon discharge.
--- NOTE | 2023-01-21 10:42 | PM.IMPN1 ---
Progress Note: A&P Assessment and Plan (1) SIRS (systemic inflammatory response syndrome): Assessment and Plan: No source of infection identified. D/c rocephin. CTA chest - no PE/Pneumonia UA - normal CT abd/pelvis - no evidence of acute intra abdominal pathology. D/c IVF as euvolemic and to avoid volume overload with hx of CHF (2) Chest pain: Assessment and Plan: Trop x 3 negative. PCI in 2010. On ASA, Statin and BB. 2D ECHO shows borderline low EF, no sig WMA, Valvular pathology. Will defer w/u for ischemic HD to outpatient cardiology if deemed necessary. Qualifiers: Chest pain type: unspecified Qualified Code(s): R07.9 - Chest pain, unspecified (3) CAD (coronary artery disease): Assessment and Plan: s/p PCI in 2010. On ASA, Statin and BB. Follows outpatient with [facility] (4) Anemia: Assessment and Plan: Hb fluctuating. No evidence of overt bleeding. Iron profile c/w Anemia of chronic disease. Monitor for now. Qualifiers: Anemia type: unspecified type Qualified Code(s): D64.9 - Anemia, unspecified (5) Lactic acidosis: Assessment and Plan: Improved with hydration (6) Chronic HFrEF (heart failure with reduced ejection fraction): Assessment and Plan: His EF previously had been as low as 40%. Not on GDMT due to frailty, poor functional status and only using Toprol. (7) Afib: Assessment and Plan: In NSR. On Eliquis and Toprol for it. (8) Type 2 diabetes mellitus: Assessment and Plan: On sliding scale insulin. Will add low dose levemir for improved glycemic control Qualifiers: Diabetes mellitus longterm insulin use: without longterm use Diabetes mellitus complication status: without complication Qualified Code(s): E11.9 - Type 2 diabetes mellitus without complications (9) Malnutrition: Assessment and Plan: Poor PO intake, low serum protein/albumin, evidence of muscle wasting and recent weight loss. Encourage PO intake, added ensure. Suspect this could be due to malabsorption for Whipple along with possible intra abdominal malignancy (noted on CT abd - discussed below) (10) Generalized weakness: Assessment and Plan: From malnutrition, muscle wasting - suspect underlying metastatic gastric carcinoma based on new CT abd/pelvis. PT/OT. Will need inpatient rehab. (11) H/O malignant neoplasm of stomach: Assessment and Plan: s/p eleazarippmanolo's He recently saw his hemonc and had an abdominal MRI performed but results have not been reviewed yet by patient's oncologist. He was scheduled to see them this Thursday CT abd pelvis concerning for possible metastatic disease vs primary small bowel malignancy with multiple mesenteric LN involvement Hemonc consulted. Unfortunately, not available to round in person, will discuss findings over phone. (12) Depression with anxiety: Assessment and Plan: Poorly controlled. Increased Xanax and that has helped. C/w Prozac and mirtazapine Plan BP was borderline low last evening with SBP in 70-80s. Drop in Hb today with no source of infection identified Will need continued hospital stay to monitor hemodynamics and Hb Internal Medicine - PN: Subj Subjective Interval history: Seen and examined. Doing well today. Patient is very weak, frail and unable to ambulate w/o needing help. Hb down to 8 today BP low late evening with SBP in 70-80s range persistently Exam Constitutional Vital Signs, click to edit/add: Last Vital Signs Temp 98.6 F 01/21/23 07:18 Pulse 86 01/21/23 07:18 Resp 18 01/21/23 07:21 BP 106/65 01/21/23 07:18 Pulse Ox 98 01/21/23 07:18 O2 Del Method Room Air 01/21/23 07:18 O2 Flow Rate 2 01/19/23 17:26 Documenting provider has reviewed patient's vital signs: yes Common normals: no apparent distress General appearance: cooperative, comfortable and frail appearing Nutritional appearance: thin HENMT Common normals: normocephalic and head/scalp atraumatic Eye Common normals: conjunctivae normal and no scleral icterus Respiratory Common normals: clear to auscultation bilaterally Effort & inspection: able to speak in complete sentences Auscultation: clear to auscultation bilaterally Cardio Common normals: no JVD, regular rhythm, S1 normal heart sound and S2 normal heart sound GI Common normals: Normal to inspection, nondistended, normoactive bowel sounds present (except for surgical scar in midline), soft to palpation and no hepatosplenomegaly Extremity Common normals: normal to inspection and full ROM Neuro Common normals: oriented x3, CN's II-XII intact bilaterally, moves all extremities, no focal motor deficits and no sensory deficits noted Psych Common normals: mental status grossly normal, cooperative, denies hallucinations, denies homicidal ideation and denies suicidal ideation Internal Medicine - PN: Obj Da Labs Labs: Laboratory Results - last 24 hr 01/20/23 01/20/23 01/20/23 04:04 11:43 11:43 WBC RBC Hgb Hct MCV MCH MCHC RDW Plt Count MPV Neut % (Auto) Lymph % (Auto) [place] % (Auto) Eos % (Auto) Baso % (Auto) Neut # (Auto) Lymph # (Auto) [place] # (Auto) Eos # (Auto) Baso # (Auto) Abs Immat Gran (auto) Imm/Tot Granulo (auto) Sodium Potassium Chloride Carbon Dioxide Anion Gap BUN Creatinine Est GFR ( Amer) Est GFR (Non-Af Amer) BUN/Creatinine Ratio Glucose Calcium Transferrin 125 L Total Bilirubin AST ALT Alkaline Phosphatase Lactate Dehydrogenase Total Creatine Kinase 98 CK-MB (CK-2) 1.99 Myoglobin 76 Troponin I High Sens 14.3 Total Protein Albumin Globulin Albumin/Globulin Ratio Vitamin B12 Folate POC Glucose 308 H 304 H 01/20/23 01/20/23 01/20/23 13:00 16:35 21:10 WBC RBC Hgb 9.3 L Hct 28.7 L MCV MCH MCHC RDW Plt Count MPV Neut % (Auto) Lymph % (Auto) [place] % (Auto) Eos % (Auto) Baso % (Auto) Neut # (Auto) Lymph # (Auto) [place] # (Auto) Eos # (Auto) Baso # (Auto) Abs Immat Gran (auto) Imm/Tot Granulo (auto) Sodium Potassium Chloride Carbon Dioxide Anion Gap BUN Creatinine Est GFR ( Amer) Est GFR (Non-Af Amer) BUN/Creatinine Ratio Glucose Calcium Transferrin Total Bilirubin AST ALT Alkaline Phosphatase Lactate Dehydrogenase 155 Total Creatine Kinase CK-MB (CK-2) Myoglobin Troponin I High Sens Total Protein Albumin Globulin Albumin/Globulin Ratio Vitamin B12 642.0 Folate 16.70 POC Glucose 82 175 H 01/21/23 04:03 WBC 3.3 L RBC 2.66 L Hgb 8.3 L Hct 26.8 L MCV 100.8 H MCH 31.2 MCHC 31.0 RDW 14.3 Plt Count 227 MPV 9.4 L Neut % (Auto) 48.7 Lymph % (Auto) 35.1 [place] % (Auto) 10.8 Eos % (Auto) 4.8 Baso % (Auto) 0.3 Neut # (Auto) 1.6 Lymph # (Auto) 1.2 [place] # (Auto) 0.4 Eos # (Auto) 0.2 Baso # (Auto) 0.0 Abs Immat Gran (auto) 0.01 Imm/Tot Granulo (auto) 0.3 Sodium 138 Potassium 3.9 Chloride 106 Carbon Dioxide 22.3 Anion Gap 13.6 BUN 17.0 Creatinine 0.73 Est GFR ( Amer) >60 Est GFR (Non-Af Amer) >60 BUN/Creatinine Ratio 23.3 Glucose 89 Calcium 7.6 L Transferrin Total Bilirubin 0.1 L AST 14 L ALT 16 Alkaline Phosphatase 69 Lactate Dehydrogenase 133 Total Creatine Kinase CK-MB (CK-2) Myoglobin Troponin I High Sens Total Protein 5.5 L Albumin 2.1 L Globulin 3.4 Albumin/Globulin Ratio 0.6 Vitamin B12 Folate POC Glucose Urinary Catheter Management Urinary Catheter Management Straight: Cath placed during this visit: yes Urethral indwelling: No Insertion date: 01/19/23 Insertion time: 16:40
[2023-01-21 11:15] LABS: Glucometer 198 mg/dL (74-106)
[2023-01-21] MEDS: INSULIN ASPART 300 UNIT/3 ML PEN SUBQ ×2 (11:27→22:02)
[2023-01-21 12:05] LABS: Hematocrit 27.3 % (42.0-54.0); Hemoglobin 8.8 g/dL (14.0-18.0)
[2023-01-21] MEDS: LIPASE/PROTEASE/AMYLASE CAPSULE 2 CAP PO ×2 (14:53→21:57)
[2023-01-21 16:44] LABS: Glucometer 121 mg/dL (74-106)
[2023-01-21] MEDS: ATORVASTATIN CALCIUM 40 MG TABLET PO (21:57)
[2023-01-21 22:03] LABS: Glucometer 219 mg/dL (74-106)
[2023-01-21] MEDS: INSULIN DETEMIR 300 UNIT/3 ML INSULN.PEN 10 UNIT SUBQ (22:05)
--- NOTE | 2023-01-21 22:40 | PC.NURSE ---
Patient requested bed mooney for BM. Silver colored, softly formed stool. Also voided urine at same time.
[2023-01-22] VITALS (102 sets, daily range): BP systolic 87–113; BP diastolic 57–74; PULSE 62–86; RESP 0–56; TEMP 36.8–37; O2SAT 96–97
[2023-01-22 04:07] LABS: CA 19-9 9 U/mL (0-35); CEA 0.9 ng/mL (0.0-4.7)
[2023-01-22 04:38] LABS: Basophils Percent Auto 0.3 % (0.2-2.0); Eosinophils Absolute Auto 0.1 10^3/uL (0.0-0.7); Eosinophils Percent Auto 4.3 % (0.9-7.0); Hematocrit 26.5 % (42.0-54.0); Hemoglobin 8.5 g/dL (14.0-18.0); Immature Granulocytes Abs Auto 0.01 10^3/uL (0.00-0.03); Immature Granulocytes Pct Auto 0.3 % (0.0-0.5); Lymphocytes Absolute Auto 1.1 10^3/uL (1.2-3.8); Lymphocytes Percent Auto 34.8 % (20.5-60.0); Mean Corpuscular HGB Conc 32.1 g/dL (29.9-35.2); Mean Corpuscular Hemoglobin 31.5 pg (25.9-34.0); Mean Corpuscular Volume 98.1 fL (80.0-94.0); Mean Platelet Volume 9.5 fL (9.5-13.5); Monocytes Absolute Auto 0.3 10^3/uL (0.3-0.8); Monocytes Percent Auto 10.5 % (1.7-12.0); Neutrophils Absolute Auto 1.5 10^3/uL (1.4-6.5); Neutrophils Percent Auto 49.8 % (43.0-75.0); Platelet Count 239 10^3/uL (150-450); White Blood Count 3.1 10^3/uL (4.0-11.0)
[2023-01-22 05:04] LABS: Alanine Aminotransferase 21 U/L (16-63); Albumin Globulin Ratio 0.6; Albumin Level 2.3 g/dL (3.4-5.0); Alkaline Phosphatase 77 U/L (46-116); Anion Gap 10.3; Aspartate Amino Transferase 20 U/L (15-37); BUN Creatinine Ratio 27.1; Bilirubin Total 0.2 mg/dL (0.2-1.0); Calcium 7.9 mg/dL (8.5-10.1); Carbon Dioxide 25.4 mmol/L (21.0-32.0); Chloride 107 mmol/L (98-107); Estimated GFR (African America >60 (>=60); Estimated GFR (Non-African Ame >60 (>=60); Globulin 3.6 g/dL; Glucose 92 mg/dL (74-106); Potassium 3.7 mmol/L (3.5-5.1); Sodium 139 mmol/L (136-145); Total Protein 5.9 g/dL (6.4-8.2)
[2023-01-22] MEDS: LIPASE/PROTEASE/AMYLASE CAPSULE 2 CAP PO ×3 (05:12→21:26)
[2023-01-22] MEDS: ALPRAZOLAM 0.25 MG TABLET PO ×3 (05:12→21:26)
--- NOTE | 2023-01-22 06:17 | PC.NURSE ---
Patient states incontinent brief is wet. Brief changed. Care provided to skin. Tip of penis is red and patient has pain when area cleansed. Linens changed and repositioned as needed. Patient assisted to turn to right side and pillow placed behind patient's back.
[2023-01-22] MEDS: ACETAMINOPHEN 325 MG TABLET 650 MG PO ×2 (06:51→13:16)
--- NOTE | 2023-01-22 06:54 | PC.NURSE ---
Patient used bedpan for softly formed silver colored stool with foul odor.
[2023-01-22 07:24] LABS: Glucometer 123 mg/dL (74-106)
[2023-01-22] MEDS: FLUOXETINE HCL 20 MG CAPSULE PO (08:34)
[2023-01-22] MEDS: FOLIC ACID 1 MG TABLET PO (08:34)
[2023-01-22] MEDS: METOPROLOL SUCCINATE 25 MG TAB.ER.24H PO (08:34)
--- NOTE | 2023-01-22 10:13 | REH.PTDLY ---
Physical Therapy Daily Note PT Daily Note/Assess Start: 01/21/23 09:49 Freq: Status: Active Protocol: Document 01/22/23 10:03 SHIRLENE (Rec: 01/22/23 10:13 SHIRLENE [id number]) Physical Therapy Daily Note/Assessment Time In 09:40 Time Out 10:00 Pain Level 0 Pain Level 0 Subjective No complaints today. Nursing states that yesterday afternoon, pt got up to commode and it took 3 people to get him back to bed as his legs just gave out. Therapeutic Exercise Minutes (minutes) 7 Therapeutic Exercise Units 1 Therapeutic Exercise Treatment Instructed in B LE seated exs in chair 10-12x ea for improved strength with verbal cues. Tactile cues needed for LAQ for larger ROM. Therapeutic Activity Comments Min A with supine to sit transfers. Min A x1, CGAx1 with sit to stand transfers. Gait training with RW to chair 5 feet CGA-Min A at times to help maneuver RW. Cues for pt to reach back for chair upon sitting with pt utilizing 1 hand. Total Therapy Minutes 7 Total Physical Therapy Units 1 Daily Note Summary Pt did well this morning with transfers. Still very weak and needs assistance that would make him a good candidate for skilled to become stronger prior to returning home.
--- NOTE | 2023-01-22 10:44 | CM.NOTE ---
Anticipated discharge 01/23 to [facility] in [place] for skilled rehab. Sister Briana to transport. Pt. is ok with having oncology appointment that was scheduled for tomorrow cancelled as well as Dr. Oliver and reschedule EVELYN upon discharge from [facility]. Pt. denies any other needs at this time and is still in agreement with the above discharge plan. All informataion has been updated on the discharge instructions re sisters contact numbers and number to call oncology clinic to reschedule the patient's follow up appointment.
--- NOTE | 2023-01-22 10:48 | CM.NOTE ---
Spoke with Radha at [facility] about pt having outpt appt with [facility] oncology. Decision made with family to cancel outpt appt and will follow-up with oncology after skilled therapy completed. Dr. Oliver also in agreement with pt and family decision. [facility]
[2023-01-22 10:57] LABS: Glucometer 194 mg/dL (74-106)
--- NOTE | 2023-01-22 11:01 | PM.IMPN1 ---
Progress Note: A&P Assessment and Plan (1) SIRS (systemic inflammatory response syndrome): Assessment and Plan: No source of infection identified. Was initially treated with IV rocpehin (dc'ed on 01/21/23) CTA chest - no PE/Pneumonia UA - normal CT abd/pelvis - no evidence of acute intra abdominal pathology. (2) Chest pain: Assessment and Plan: Trop x 3 negative. PCI in 2010. On ASA, Statin and BB. 2D ECHO shows borderline low EF, no sig WMA, Valvular pathology. Will defer w/u for ischemic HD to outpatient cardiology if deemed necessary. Qualifiers: Chest pain type: unspecified Qualified Code(s): R07.9 - Chest pain, unspecified (3) CAD (coronary artery disease): Assessment and Plan: s/p PCI in 2010. On ASA, Statin and BB. Follows outpatient with [facility] (4) Anemia: Assessment and Plan: Hb fluctuating. No evidence of overt bleeding. On review of outpatent Hemonc note, he was receiving IV iron at some point. I suspect due to inability to absorb iron because of Whipple Qualifiers: Anemia type: unspecified type Qualified Code(s): D64.9 - Anemia, unspecified (5) Lactic acidosis: Assessment and Plan: Improved with hydration (6) Chronic HFrEF (heart failure with reduced ejection fraction): Assessment and Plan: His EF previously had been as low as 40%. Not on GDMT due to frailty, poor functional status and only using Toprol. (7) Afib: Assessment and Plan: In NSR. On Eliquis and Toprol for it. (8) Type 2 diabetes mellitus: Assessment and Plan: On sliding scale insulin. 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 Encourage PO intake, added ensure. Suspect this could be due to malabsorption for Whipple along with possible intra abdominal malignancy (noted on CT abd - discussed below) (10) Generalized weakness: Assessment and Plan: From malnutrition, muscle wasting - suspect underlying metastatic gastric carcinoma based on new CT abd/pelvis. PT/OT. Will need inpatient rehab. (11) H/O malignant neoplasm of stomach: Assessment and Plan: s/p kenia's He recently saw his hemonc and had an abdominal MRI performed but results have not been reviewed yet by patient's oncologist. He was scheduled to see them this Thursday CT abd pelvis concerning for possible metastatic disease vs primary small bowel malignancy with multiple mesenteric LN involvement (12) Depression with anxiety: Assessment and Plan: C/w Prozac and mirtazapine Plan Doing well. Plan to d/c tomorrow to inpatient rehab. Internal Medicine - PN: Subj Subjective Interval history: Seen and examined. No events overnight. No active complaints to offer. Exam Constitutional Vital Signs, click to edit/add: Last Vital Signs Temp 98.4 F 01/22/23 07:00 Pulse 78 01/22/23 10:00 Resp 4 L 01/22/23 07:40 BP 113/74 01/22/23 07:17 Pulse Ox 97 01/22/23 07:17 O2 Del Method Room Air 01/21/23 23:00 O2 Flow Rate 2 01/21/23 15:00 Documenting provider has reviewed patient's vital signs: yes Common normals: no apparent distress General appearance: cooperative, comfortable and frail appearing Nutritional appearance: thin HENMT Common normals: normocephalic and head/scalp atraumatic Eye Common normals: conjunctivae normal and no scleral icterus Respiratory Common normals: clear to auscultation bilaterally Effort & inspection: able to speak in complete sentences Auscultation: clear to auscultation bilaterally Cardio Common normals: no JVD, regular rhythm, S1 normal heart sound and S2 normal heart sound GI Common normals: Normal to inspection, nondistended, normoactive bowel sounds present (except for surgical scar in midline), soft to palpation and no hepatosplenomegaly Extremity Common normals: normal to inspection and full ROM Neuro Common normals: oriented x3, CN's II-XII intact bilaterally, moves all extremities, no focal motor deficits and no sensory deficits noted Psych Common normals: mental status grossly normal, cooperative, denies hallucinations, denies homicidal ideation and denies suicidal ideation Internal Medicine - PN: Obj Da Labs Labs: Laboratory Results - last 24 hr 01/21/23 01/21/23 01/21/23 11:14 11:36 16:32 WBC RBC Hgb 8.8 L Hct 27.3 L MCV MCH MCHC RDW Plt Count MPV Neut % (Auto) Lymph % (Auto) [place] % (Auto) Eos % (Auto) Baso % (Auto) Neut # (Auto) Lymph # (Auto) [place] # (Auto) Eos # (Auto) Baso # (Auto) Abs Immat Gran (auto) Imm/Tot Granulo (auto) Sodium Potassium Chloride Carbon Dioxide Anion Gap BUN Creatinine Est GFR ( Amer) Est GFR (Non-Af Amer) BUN/Creatinine Ratio Glucose Calcium Total Bilirubin AST ALT Alkaline Phosphatase Total Protein Albumin Globulin Albumin/Globulin Ratio Carcinoembryonic Ag 0.9 CA 19-9 Antigen 9 POC Glucose 198 H 121 H 01/21/23 01/22/23 01/22/23 22:01 04:00 07:22 WBC 3.1 L RBC 2.70 L Hgb 8.5 L Hct 26.5 L MCV 98.1 H MCH 31.5 MCHC 32.1 RDW 14.0 Plt Count 239 MPV 9.5 Neut % (Auto) 49.8 Lymph % (Auto) 34.8 [place] % (Auto) 10.5 Eos % (Auto) 4.3 Baso % (Auto) 0.3 Neut # (Auto) 1.5 Lymph # (Auto) 1.1 L [place] # (Auto) 0.3 Eos # (Auto) 0.1 Baso # (Auto) 0.0 Abs Immat Gran (auto) 0.01 Imm/Tot Granulo (auto) 0.3 Sodium 139 Potassium 3.7 Chloride 107 Carbon Dioxide 25.4 Anion Gap 10.3 BUN 16.0 Creatinine 0.59 L Est GFR ( Amer) >60 Est GFR (Non-Af Amer) >60 BUN/Creatinine Ratio 27.1 Glucose 92 Calcium 7.9 L Total Bilirubin 0.2 AST 20 ALT 21 Alkaline Phosphatase 77 Total Protein 5.9 L Albumin 2.3 L Globulin 3.6 Albumin/Globulin Ratio 0.6 Carcinoembryonic Ag CA 19-9 Antigen POC Glucose 219 H 123 H 01/22/23 10:55 WBC RBC Hgb Hct MCV MCH MCHC RDW Plt Count MPV Neut % (Auto) Lymph % (Auto) [place] % (Auto) Eos % (Auto) Baso % (Auto) Neut # (Auto) Lymph # (Auto) [place] # (Auto) Eos # (Auto) Baso # (Auto) Abs Immat Gran (auto) Imm/Tot Granulo (auto) Sodium Potassium Chloride Carbon Dioxide Anion Gap BUN Creatinine Est GFR ( Amer) Est GFR (Non-Af Amer) BUN/Creatinine Ratio Glucose Calcium Total Bilirubin AST ALT Alkaline Phosphatase Total Protein Albumin Globulin Albumin/Globulin Ratio Carcinoembryonic Ag CA 19-9 Antigen POC Glucose 194 H Urinary Catheter Management Urinary Catheter Management Straight: Cath placed during this visit: yes Urethral indwelling: No Insertion date: 01/19/23 Insertion time: 16:40
[2023-01-22] MEDS: INSULIN ASPART 300 UNIT/3 ML PEN SUBQ ×3 (11:34→21:29)
--- NOTE | 2023-01-22 11:34 | CM.NOTE ---
Updates faxed to [facility] and [facility] completed online for pt to transferred to skilled unit.
--- NOTE | 2023-01-22 14:26 | CM.NOTE ---
2nd notice of Important Message From Medicare discussed with pt, pt verbalizes understanding and denies questions.
[2023-01-22 16:08] LABS: Glucometer 248 mg/dL (74-106)
[2023-01-22] MEDS: ATORVASTATIN CALCIUM 40 MG TABLET PO (21:26)
[2023-01-22] MEDS: INSULIN DETEMIR 300 UNIT/3 ML INSULN.PEN 10 UNIT SUBQ (21:29)
[2023-01-22 21:33] LABS: Glucometer 266 mg/dL (74-106)
[2023-01-23] VITALS (17 sets, daily range): BP systolic 105–111; BP diastolic 63–72; PULSE 60–77; RESP 14–35; TEMP 36.6–36.9; O2SAT 96–99
[2023-01-23] MEDS: ACETAMINOPHEN 325 MG TABLET 650 MG PO (02:18)
[2023-01-23 05:31] LABS: Eosinophils Absolute Auto 0.1 10^3/uL (0.0-0.7); Eosinophils Percent Auto 3.3 % (0.9-7.0); Hematocrit 27.6 % (42.0-54.0); Hemoglobin 8.7 g/dL (14.0-18.0); Immature Granulocytes Abs Auto 0.01 10^3/uL (0.00-0.03); Immature Granulocytes Pct Auto 0.3 % (0.0-0.5); Lymphocytes Absolute Auto 1.3 10^3/uL (1.2-3.8); Lymphocytes Percent Auto 31.8 % (20.5-60.0); Mean Corpuscular HGB Conc 31.5 g/dL (29.9-35.2); Mean Corpuscular Hemoglobin 31.6 pg (25.9-34.0); Mean Corpuscular Volume 100.4 fL (80.0-94.0); Monocytes Absolute Auto 0.4 10^3/uL (0.3-0.8); Monocytes Percent Auto 10.5 % (1.7-12.0); Neutrophils Absolute Auto 2.2 10^3/uL (1.4-6.5); Neutrophils Percent Auto 54.1 % (43.0-75.0); Platelet Count 236 10^3/uL (150-450); Red Blood Count 2.75 10^6/uL (4.70-6.10)
[2023-01-23 05:53] LABS: Alanine Aminotransferase 23 U/L (16-63); Albumin Globulin Ratio 0.6; Albumin Level 2.4 g/dL (3.4-5.0); Alkaline Phosphatase 75 U/L (46-116); Anion Gap 8.8; Aspartate Amino Transferase 19 U/L (15-37); BUN Creatinine Ratio 16.7; Bilirubin Total 0.2 mg/dL (0.2-1.0); Calcium 7.6 mg/dL (8.5-10.1); Carbon Dioxide 27.1 mmol/L (21.0-32.0); Chloride 107 mmol/L (98-107); Estimated GFR (African America >60 (>=60); Estimated GFR (Non-African Ame >60 (>=60); Globulin 3.7 g/dL; Glucose 62 mg/dL (74-106); Potassium 3.9 mmol/L (3.5-5.1); Sodium 139 mmol/L (136-145); Total Protein 6.1 g/dL (6.4-8.2)
[2023-01-23] MEDS: LIPASE/PROTEASE/AMYLASE CAPSULE 2 CAP PO ×2 (06:24→13:39)
[2023-01-23] MEDS: ALPRAZOLAM 0.25 MG TABLET PO ×2 (06:24→13:38)
[2023-01-23] MEDS: METOPROLOL SUCCINATE 25 MG TAB.ER.24H PO (08:10)
[2023-01-23] MEDS: FLUOXETINE HCL 20 MG CAPSULE PO (08:10)
[2023-01-23] MEDS: FOLIC ACID 1 MG TABLET PO (08:10)
--- NOTE | 2023-01-23 10:54 | PT.DAILY ---
Physical Therapy Daily Note PT Daily Note/Assess Start: 01/21/23 09:49 Freq: Status: Active Protocol: Document 01/23/23 10:46 JARONNIKITAJAXON (Rec: 01/23/23 10:53 LAUREN [id number]) Physical Therapy Daily Note/Assessment Time In/Time Out Time In 10:20 Time Out 10:45 Pain In Pain N/A Pain Out Pain N/A Subjective Subjective Pt sitting in BS chair upon arrival. Agrees to PT to practice transfers if pt's family is to transport him to skilled facility. Therapeutic Exercise Time Therapeutic Exercise Minutes (minutes) 5 Therapeutic Exercise Units 0 Therapeutic Exercise Treatment Therapeutic Exercise Treatment Pt completes seated LE strengthening ex in BS chair 10x ea to improve functional mobility prior to transfers/ gait. Therapeutic Activity Time Therapeutic Activity Minutes (minutes) 20 Therapeutic Activity Units 2 Therapeutic Activity Treatment Chair Transfer Ability Minimum Assist,Moderate Assist Therapeutic Activity Comments Pt sit>stand with Efrem to RW. Pt takes 2 steps forward and retro 3x to simulate getting out of chair and walking to car. Takes seated rest break. Sit>stand with Efrem and pivots using RW/CGA side steps 2 steps to sit in straight back chair - again to simulate transfer to car. Pt takes seated rest then sit>stand from straight back chair with ModA this attempt as chair does not have arm rest. Pivots again and takes 2 steps to right to get back in BS chair. Pt needs occ vc to keep RW close and to try to stand tall as he demonstrates forward flexed posture. Pt does well as long as he takes his time. Returned to BS chair with feet elevated and call light in reach. Nursing notified of transfer ability. Total Physical Therapy Time Total Therapy Minutes 25 Total Physical Therapy Units 2 Summary Daily Note Summary Improved transfer ability. Would benefit from SNF to regain strength and endurance to return to PLOF.
[2023-01-23 11:03] LABS: Glucometer 185 mg/dL (74-106)
[2023-01-23] MEDS: INSULIN ASPART 300 UNIT/3 ML PEN SUBQ (11:03)
--- NOTE | 2023-01-23 12:37 | CM.NOTE ---
Called [facility] to update with pt's discharge today, spoke with Radha. Pt will transport by [facility] to skilled facility, nursing states pt has severe weakness and needs to go by squad. Discussed transport with pt's sister and she is ok with squad transport d/t weakness and she will update pt's daughter. Faxed discharge to [facility] and updated with discharge time.
--- NOTE | 2023-01-23 12:40 | P.DS_ITS ---
DS: Providers Provider Date of admission: 01/20/23 12:00 Primary care physician: Carrie Caputo MD Consults: 01/20/23 Consult to Podiatry Routine Consulting Provider: Rohit Richards Occupational Therapy Eval and Treat Routine Physical Therapy Eval and Treat Routine 01/20/23 13:09 Consult to Podiatry Routine Consulting Provider: Sukhi Valencia 01/21/23 07:55 Consult to Oncology Routine Consulting Provider: Margei Malhotra Attending physician on discharge: Shaikh Melody Discharging clinician: Shaikh Melody Anticipated date of discharge: 01/23/23 DS: Diagnosis Discharge Diagnosis (1) SIRS (systemic inflammatory response syndrome): Assessment and plan: No source identified. Will d/c w/o abx (2) Chest pain: Assessment and plan: Trop x 3 negative. 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 Gets IV iron as outpatient. Qualifiers: Anemia type: unspecified type Qualified Code(s): D64.9 - Anemia, unspecified (5) Lactic acidosis: (6) Chronic HFrEF (heart failure with reduced ejection fraction): Assessment and plan: Outpatient f/u Cardiology. Not on GDMT due to frailty (7) Afib: Assessment and plan: In NSR. 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 Possibility of metastases vs primary small bowel cancer - outpatient f/u with Oncology (12) Depression with anxiety: Assessment and plan: C/w home meds DS: Summary Hospital Course Hospital Course: 67 y o presents with left sided CP that resolved with SL nitro. Admitted for chest pain r/o ACS. Negative tropx 3, no sig WMA on 2D ECHO He also met SIRS criteria - no source of infection identified on CTA/ CT abd/pelvis. Patient received IV rocpehin for presumed Pneumonia but that was later on d/c'ed Frail, weak, poor functional status - PT/OT eval and rx. Patient will go to SNF on discharge. Will need to f/u with PCP in one week, Oncology in 1-2 weeks Time spent discussing smoking cessation with patient: 3 to 10 minutes Status at Discharge Functional status at discharge: uses cane/walker Overall status at discharge: patient is back to baseline Time Spent with Patient Time attestation: Total time spent providing and/or coordinating discharge services: Time spent: greater than 30 minutes Exam Constitutional Vital Signs, click to edit/add: Last Vital Signs Temp 98.4 F 01/23/23 11:00 Pulse 71 01/23/23 12:00 Resp 16 01/23/23 11:00 BP 105/67 01/23/23 11:00 Pulse Ox 99 01/23/23 11:00 O2 Del Method Room Air 01/23/23 11:00 O2 Flow Rate 2 01/21/23 15:00 Documenting provider has reviewed patient's vital signs: yes Common normals: no apparent distress General appearance: cooperative, comfortable and frail appearing Nutritional appearance: thin HENMT Common normals: normocephalic and head/scalp atraumatic Eye Common normals: conjunctivae normal and no scleral icterus Respiratory Common normals: clear to auscultation bilaterally Effort & inspection: able to speak in complete sentences Auscultation: clear to auscultation bilaterally Cardio Common normals: no JVD, regular rhythm, S1 normal heart sound and S2 normal heart sound GI Common normals: Normal to inspection, nondistended, normoactive bowel sounds present (except for surgical scar in midline), soft to palpation and no hepatosplenomegaly Extremity Common normals: normal to inspection and full ROM Neuro Common normals: oriented x3, CN's II-XII intact bilaterally, moves all extre mities, no focal motor deficits and no sensory deficits noted Psych Common normals: mental status grossly normal, cooperative, denies hallucinations, denies homicidal ideation and denies suicidal ideation DS: Data Data Completed and Pending Labs on day of discharge: Labs from last 24 hours 01/23/23 01/23/23 01/22/23 11:00 05:18 21:29 WBC 4.0 RBC 2.75 L Hgb 8.7 L Hct 27.6 L MCV 100.4 H MCH 31.6 MCHC 31.5 RDW 14.0 Plt Count 236 MPV 9.0 L Neut % (Auto) 54.1 Lymph % (Auto) 31.8 [place] % (Auto) 10.5 Eos % (Auto) 3.3 Baso % (Auto) 0.0 L Neut # (Auto) 2.2 Lymph # (Auto) 1.3 [place] # (Auto) 0.4 Eos # (Auto) 0.1 Baso # (Auto) 0.0 Abs Immat Gran (auto) 0.01 Imm/Tot Granulo (auto) 0.3 Sodium 139 Potassium 3.9 Chloride 107 Carbon Dioxide 27.1 Anion Gap 8.8 BUN 13.0 Creatinine 0.78 Est GFR ( Amer) >60 Est GFR (Non-Af Amer) >60 BUN/Creatinine Ratio 16.7 Glucose 62 L Calcium 7.6 L Total Bilirubin 0.2 AST 19 ALT 23 Alkaline Phosphatase 75 Total Protein 6.1 L Albumin 2.4 L Globulin 3.7 Albumin/Globulin Ratio 0.6 POC Glucose 185 H 266 H 01/22/23 16:06 WBC RBC Hgb Hct MCV MCH MCHC RDW Plt Count MPV Neut % (Auto) Lymph % (Auto) [place] % (Auto) Eos % (Auto) Baso % (Auto) Neut # (Auto) Lymph # (Auto) [place] # (Auto) Eos # (Auto) Baso # (Auto) Abs Immat Gran (auto) Imm/Tot Granulo (auto) Sodium Potassium Chloride Carbon Dioxide Anion Gap BUN Creatinine Est GFR ( Amer) Est GFR (Non-Af Amer) BUN/Creatinine Ratio Glucose Calcium Total Bilirubin AST ALT Alkaline Phosphatase Total Protein Albumin Globulin Albumin/Globulin Ratio POC Glucose 248 H Preliminary micro results at discharge 01/19/23 15:41 Blood Culture Result 1 - Preliminary Blood NO GROWTH AT 36-48 HOURS. FINAL TO FOLLOW. 01/19/23 15:35 Blood Culture Result 1 - Preliminary Blood NO GROWTH AT 36-48 HOURS. FINAL TO FOLLOW. Discharge Plan Discharge Disposition: Xfer SNF Condition: Good Discharge Medications: Continued baclofen 10 mg tablet 5 mg PO BID PRN (Reason: muscle spasm) Rx Instructions: PER RETAIL FILL HX - LAST FILLED 01/12/23 #30 TABS FOR A 30 DAY SUPPLY mirtazapine 15 mg tablet 15 mg PO .QHS PRN (Reason: Not Specified) Rx Instructions: PER RETAIL FILL HX - LAST FILLED 01/01/23 #30 FOR 30 DAY SUPPLY Creon 24,000-76,000 -120,000 unit capsule,delayed release(DR/EC) 2 cap PO TID Rx Instructions: administer with meals and/or snacks metoclopramide HCl 10 mg tablet 10 mg PO TID alprazolam 0.25 mg tablet 0.25 mg PO BID Janumet 50-1,000 mg tablet 1 tab PO BID Eliquis 2.5 mg tablet 2.5 mg PO BID atorvastatin 40 mg tablet 40 mg PO QPM metoprolol succinate 25 mg capsule,sprinkle,ER 24hr 25 mg PO DAILY folic acid 1 mg tablet 1 mg PO DAILY fluoxetine 20 mg capsule 20 mg PO DAILY baclofen 5 mg tablet 5 mg PO BID PRN (Reason: muscle spasm) Clear Coat Sprayer/Diesel Service Technician Instructions: [facility] accepts upon discharge. Sister Briana can transport. Briana's phone number [phone] or cell [phone]. Please call her as soon as you know when he can be transported. Forms: Portal Instructions Follow Up Appointments: Darius needs to schedule a follow up appointment with [facility] at [facility] upon discharge from [facility] Please call [phone] to schedule. PCP in one week
--- NOTE | 2023-01-23 13:10 | CM.NOTE ---
Nurse notified of transport time and all discharge information faxed to [facility].
--- NOTE | 2023-01-23 13:17 | CM.NOTE ---
Discussed with sister and daughter about making sure oncology f/u gets scheduled after skilled rehab complete.
--- NOTE | 2023-01-23 13:30 | CM.NOTE ---
[facility] aware that pt is going to [facility] for skilled therapy.
--- NOTE | 2023-01-23 13:32 | CM.NOTE ---
Rounds made with vane Patel for pt to discharge to [facility] therapy today.
== END 2023-01-23 14:21 | DRG 864 ==
LOC: ER 19:02 → ICU 19:13
PROVIDERS: Internal Medicine; Internal Medicine Hematology & Oncology; Physician Assistant; Admitting Provider Internal Medicine; Emergency Provider Emergency Medicine; PCP Family Medicine; Visit Provider Internal Medicine
DX: R50.9 Fever, unspecified (principal); R65.10 Systemic inflammatory response syndrome (SIRS) of non-infectious origin without acute organ dysfunction; E87.20 Acidosis, unspecified; E46 Unspecified protein-calorie malnutrition; I50.22 Chronic systolic (congestive) heart failure; C79.9 Secondary malignant neoplasm of unspecified site; C17.9 Malignant neoplasm of small intestine, unspecified; I11.0 Hypertensive heart disease with heart failure; R07.9 Chest pain, unspecified; I25.10 Atherosclerotic heart disease of native coronary artery without angina pectoris; E11.9 Type 2 diabetes mellitus without complications; F32.A Depression, unspecified; F41.9 Anxiety disorder, unspecified; D63.8 Anemia in other chronic diseases classified elsewhere; R53.1 Weakness; I48.91 Unspecified atrial fibrillation; Z68.21 Body mass index [BMI] 21.0-21.9, adult; Z90.49 Acquired absence of other specified parts of digestive tract; I25.2 Old myocardial infarction; E78.00 Pure hypercholesterolemia, unspecified; Z95.5 Presence of coronary angioplasty implant and graft; Z79.84 Long term (current) use of oral hypoglycemic drugs; Z79.01 Long term (current) use of anticoagulants; Z79.899 Other long term (current) drug therapy; Z85.028 Personal history of other malignant neoplasm of stomach; Z87.891 Personal history of nicotine dependence; Z85.07 Personal history of malignant neoplasm of pancreas; Z83.3 Family history of diabetes mellitus; Z82.49 Family history of ischemic heart disease and other diseases of the circulatory system; Z82.5 Family history of asthma and other chronic lower respiratory diseases
CPT/HCPCS: 36415; 71045; 71275; 74177; 80053; 80307; 81003; 82378; 82550; 82553; 82607; 82728; 82746; 82948; 83540; 83550; 83605; 83615; 83874; 83880; 84466; 84484; 85014; 85018; 85025; 85610; 85730; 86301; 87040; 93005; 93306; 96365; 96375; 96376; 97110; 97162; 97165; 97530; 97535; 99285; G0328; G0378; Q9967

== ENCOUNTER 2023-04-16 13:42 | Outpatient (OUT) | payer MEDICARE, SELFPAY ==
--- NOTE | 2023-04-16 14:19 | P.CN_ITS ---
Consult Note: HPI Data of Consult Patient: known to practice within the last 3 years Requesting Physician: Elva Glynn MD Primary Care Provider: Carrie Caputo MD Consult Narrative Reason for consult: f/u Narrative: Geraldo valdes pleasant 67 year old male presents for evaluation of chronic pain, patient presents today in WC. Pain today 09/05. Patient reports improvement in pain since last visit and tolerates medication well without side effects. cc:: CC: Elva Glynn MD Review of Systems ROS Status of ROS 10 or more systems reviewed and unremarkable except as noted in history and below Musculoskeletal Reports: back pain and joint pain PFSH PFSH Medical History (Updated 04/16/23 @ 14:21 by Celia King NP) Afib ?I48.91 - Unspecified atrial fibrillation (ICD-10) Anemia ?D64.9 - Anemia, unspecified (ICD-10) Anxiety ?F41.9 - Anxiety disorder, unspecified (ICD-10) CAD (coronary artery disease) ?I25.10 - Atherosclerotic heart disease of [place] coronary artery without angina pectoris (ICD-10) Cardiomyopathy ?I42.9 - Cardiomyopathy, unspecified (ICD-10) Carotid artery calcification ?I65.29 - Occlusion and stenosis of unspecified carotid artery (ICD-10) CHF (congestive heart failure) ?I50.9 - Heart failure, unspecified (ICD-10) Chronic HFrEF (heart failure with reduced ejection fraction) ?I50.22 - Chronic systolic (congestive) heart failure (ICD-10) Depression with anxiety ?F41.8 - Other specified anxiety disorders (ICD-10) Generalized weakness ?R53.1 - Weakness (ICD-10) H/O malignant neoplasm of stomach ?Z85.028 - Personal history of other malignant neoplasm of stomach (ICD-10) Malnutrition ?E46 - Unspecified protein-calorie malnutrition (ICD-10) Myocardial infarct ?I21.9 - Acute myocardial infarction, unspecified (ICD-10) Stomach cancer ?C16.9 - Malignant neoplasm of stomach, unspecified (ICD-10) Type 2 diabetes mellitus ?E11.9 - Type 2 diabetes mellitus without complications (ICD-10) Surgical History 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) ?Z90.49 - Acquired absence of other specified parts of digestive tract (ICD- 10) History of coronary artery stent placement ?Z95.5 - Presence of coronary angioplasty implant and graft (ICD-10) Family History Father Family history of COPD (chronic obstructive pulmonary disease) Family history of CHF (congestive heart failure) Mother Family history of diabetes mellitus Social History Within the past year, how often did you have a drink containing alcohol: monthly or less Within the past year, how many standard drinks containing alcohol did you have on a typical day: 1 or 2 Within the past year, how often did you have six or more drinks on one occasion: never Total score: 0 Score interpretation: A score less than 4 is consistent with normal alcohol consumption. 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 Known occupational exposures/hazards: Yes Known occupational exposures/hazards details: dust Highest level of school completed/degree received: high school graduate Are you now , , , , never or living with a partner: In a typical week, how many times do you talk on the telephone with family, friends, or neighbors: 3 or more times per week How often do you get together with friends or relatives: 3 or more times per week How often do you attend latter day or baptism services: never Do you belong to any clubs or organizations such as latter day groups unions, fraternal or athletic groups, or school groups: no Total score: 1 Score interpretation: A score of less than or equal to 1 indicates the most socially isolated. Little interest or pleasure in doing things: several days Feeling down, depressed, or hopeless: several days Feel stressed/tense/nervous/anxious/difficulty sleeping: not at all Due to disability, difficulty making decisions: No Meds Home Medications and Allergies Home Medications Medication Instructions Recorded Confirmed Type alprazolam 0.25 mg tablet 0.25 mg PO BID 12/22/22 01/19/23 History apixaban 2.5 mg tablet (Eliquis) 2.5 mg PO BID 12/22/22 01/19/23 History atorvastatin 40 mg tablet 40 mg PO QPM 12/22/22 01/19/23 History baclofen 5 mg tablet 5 mg PO BID PRN muscle spasm 12/22/22 01/20/23 History fluoxetine 20 mg capsule 20 mg PO DAILY 12/22/22 01/19/23 History folic acid 1 mg tablet 1 mg PO DAILY 12/22/22 01/19/23 History kaynzv-zminrxcg-pmoisml 2 cap PO TID 12/22/22 01/21/23 History 24,000-76,000-120,000 unit capsule,delayed rel (Creon) metoclopramide HCl 10 mg tablet 10 mg PO TID 12/22/22 01/19/23 History metoprolol succinate 25 mg capsule 25 mg PO DAILY 12/22/22 01/19/23 History sprinkle, ext. release 24 hr sitagliptin phosphate 50 1 tab PO BID 12/22/22 01/19/23 History mg-metformin 1,000 mg tablet (Janumet) baclofen 10 mg tablet 5 mg PO BID PRN muscle spasm 01/19/23 01/20/23 History mirtazapine 15 mg tablet 15 mg PO .QHS PRN Not Specified 01/19/23 01/20/23 History Allergies Allergy/AdvReac Type Severity Reaction Status Date / Time No Known Drug Allergies Allergy Verified 12/22/22 12:51 Exam Constitutional Documenting provider has reviewed patient's vital signs: yes Common normals: no apparent distress, oriented x3 and alert General appearance: cooperative Nutritional appearance: thin HENMT Common normals: normocephalic, hearing grossly normal bilaterally and moist oral mucous membranes Head and scalp: normocephalic Eye Common normals: PERRL Pupil: PERRL Neck & C-Spine Common normals: full ROM General: normal visual inspection Chest Common normals: inspection of chest normal Respiratory Common normals: normal respiratory effort, no retractions and no use of accessory muscles Back & Pelvis Lumbar spine/lower back: pain with ROM Other: unable to stand for examination today Extremity Common normals: normal to inspection Neuro Common normals: oriented x3, CN's II-XII intact bilaterally, moves all extremities, no focal motor deficits, no sensory deficits noted and deep tendon reflexes 2+ bilaterally Sensorium/orientation: alert Gait (neuro): assistive device used (wheelchair) other Motor exam: no movement abnormalities noted and strength abnormal (4/5 BUE BLE) Psych Common normals: mental status grossly normal, thought process normal, cooperative, affect normal, speech normal and activity/motor behavior normal Speech: normal speech Thought process: normal thought process Results Additional Findings Additional findings: I have checked an OARRS report on this patient today and there are no aberrancies noted in the prescribing history.?? A drug screen was completed and reviewed within the last year, and if there has not been a drug screen completed we ordered one today to monitor higher risk, state monitored pain medication use. As part of providing excellent, safe, comprehensive care, the following was completed at our patient's visit: 1. A medication reconciliation and review to ensure accurate knowledge of current/active medications, including asking our patients to inform us about any kvxt-vai-qluswnd medications or herbal remedies/nutritional supplements/alternative remedies. 2. A review to specifically ensure our patients have had annual screening for: elevated body mass index (BMI), tobacco use, screening for depression, and screening for unhealthy alcohol use. When screening is concerning, patients are provided with education and the specific recommendation to discuss the concerning health issue and treatment options with their primary care provider. Assessment and Plan Assessment and Plan (1) Chronic pain syndrome: (2) Myalgia: (3) Low back pain: Plan continue baclofen tid prn muscle spasms f/u 3 months
== END 2023-04-16 13:43 | disposition home or self-care (01) ==
LOC: PM 13:42
PROVIDERS: PCP Family Medicine; Visit Provider Anesthesiology
DX: G89.4 Chronic pain syndrome (principal); M79.10 Myalgia, unspecified site; M54.50 Low back pain, unspecified
CPT/HCPCS: G0463

== ENCOUNTER 2023-07-16 00:17 | Inpatient (IN) | payer MEDICARE, SELFPAY ==
[2023-07-16] VITALS (119 sets, daily range): BP systolic 73–133; BP diastolic 48–88; PULSE 81–121; RESP 0–51; TEMP 36.4–37.3; O2SAT 73–100; BMI 21.7
--- NOTE | 2023-07-16 00:20 | ECG_ITS ---
[facility] Test Date: 2023-07-16 Pat Name: ROCIO RENETTA Department: Room: - Gender: Male Grades 1 6 Tutor: : 1955 Requested By: DAVID EDOUARD Order Number: [id number] Reading MD: VANESSA GARDUNO Measurements Intervals [place] Rate: 99 P: 84 SD: 168 QRS: 36 QRSD: 78 T: 61 QT: 346 QTc: 403 Interpretive Statements 1100 Sinus rhythm 8102 Low QRS voltage in chest leads 9120 atypical ECG Compared to ECG 01/19/2023 14:44:26 No significant changes Electronically Signed On 07-16-2023 6:56:07 EST by VANESSA GARDUNO
--- NOTE | 2023-07-16 00:27 | PC.NURSE ---
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
--- NOTE | 2023-07-16 00:39 | ED.AMS1 ---
HPI - Altered Mental Status General Chief Complaint: Nausea/Vomiting/Diarrhea Stated Complaint: mental status Time Seen by Provider: 07/16/23 00:36 Source: other Source comment: EMS Mode of arrival: ambulance History of Present Illness HPI narrative: patient transferred from home reportedly family informed Squad he was unresponsive. They found him awake but gen. weak. He had been vomiting. Denies diarrhea or abdominal pain. No chest pain. Per squad he has a history of gastric CA. Patient states it was treated Patient is hypotensive and hypoxic on arrival but awake daughter states he was watching TV and called out to her because he was going to vomit. She went to get something he could vomit in and came back and found him unresponsive. she states the vomit was not bloody .States he does have a past history of bleeding ulcer Related Data Home Medications Medication Instructions Recorded Confirmed alprazolam 0.25 mg tablet 0.25 mg PO BID 12/22/22 01/19/23 apixaban 2.5 mg tablet (Eliquis) 2.5 mg PO BID 12/22/22 01/19/23 atorvastatin 40 mg tablet 40 mg PO QPM 12/22/22 01/19/23 baclofen 5 mg tablet 5 mg PO BID PRN muscle spasm 12/22/22 01/20/23 fluoxetine 20 mg capsule 20 mg PO DAILY 12/22/22 01/19/23 folic acid 1 mg tablet 1 mg PO DAILY 12/22/22 01/19/23 rhpwqe-esavbdno-dujvycl 2 cap PO TID 12/22/22 01/21/23 24,000-76,000-120,000 unit capsule,delayed rel (Creon) metoclopramide HCl 10 mg tablet 10 mg PO TID 12/22/22 01/19/23 metoprolol succinate 25 mg capsule 25 mg PO DAILY 12/22/22 01/19/23 sprinkle, ext. release 24 hr sitagliptin phosphate 50 1 tab PO BID 12/22/22 01/19/23 mg-metformin 1,000 mg tablet (Janumet) baclofen 10 mg tablet 5 mg PO BID PRN muscle spasm 01/19/23 01/20/23 mirtazapine 15 mg tablet 15 mg PO .QHS PRN Not Specified 01/19/23 01/20/23 Allergies Allergy/AdvReac Type Severity Reaction Status Date / Time No Known Drug Allergies Allergy Verified 07/16/23 00:25 Review of Systems ROS Status of ROS 10 or more systems reviewed and unremarkable except as noted in history and below [facility] Medical History (Updated 07/16/23 @ 03:54 by Brent Robertson MD) Chronic HFrEF (heart failure with reduced ejection fraction) ?I50.22 - Chronic systolic (congestive) heart failure (ICD-10) H/O malignant neoplasm of stomach ?Z85.028 - Personal history of other malignant neoplasm of stomach (ICD-10) Generalized weakness ?R53.1 - Weakness (ICD-10) Malnutrition ?E46 - Unspecified protein-calorie malnutrition (ICD-10) Afib ?I48.91 - Unspecified atrial fibrillation (ICD-10) Depression with anxiety ?F41.8 - Other specified anxiety disorders (ICD-10) Anemia ?D64.9 - Anemia, unspecified (ICD-10) Type 2 diabetes mellitus ?E11.9 - Type 2 diabetes mellitus without complications (ICD-10) CAD (coronary artery disease) ?I25.10 - Atherosclerotic heart disease of [place] coronary artery without angina pectoris (ICD-10) Carotid artery calcification ?I65.29 - Occlusion and stenosis of unspecified carotid artery (ICD-10) CHF (congestive heart failure) ?I50.9 - Heart failure, unspecified (ICD-10) Cardiomyopathy ?I42.9 - Cardiomyopathy, unspecified (ICD-10) Anxiety ?F41.9 - Anxiety disorder, unspecified (ICD-10) Myocardial infarct ?I21.9 - Acute myocardial infarction, unspecified (ICD-10) Stomach cancer ?C16.9 - Malignant neoplasm of stomach, unspecified (ICD-10) Surgical History 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) ?Z90.49 - Acquired absence of other specified parts of digestive tract (ICD-10) History of coronary artery stent placement ?Z95.5 - Presence of coronary angioplasty implant and graft (ICD-10) Family History Father Family history of COPD (chronic obstructive pulmonary disease) Family history of CHF (congestive heart failure) Mother Family history of diabetes mellitus Social History Within the past year, how often did you have a drink containing alcohol: monthly or less Within the past year, how many standard drinks containing alcohol did you have on a typical day: 1 or 2 Within the past year, how often did you have six or more drinks on one occasion: never Total score: 0 Score interpretation: A score less than 4 is consistent with normal alcohol consumption. 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 Known occupational exposures/hazards: Yes Known occupational exposures/hazards details: dust Highest level of school completed/degree received: high school graduate Are you now , , , , never or living with a partner: In a typical week, how many times do you talk on the telephone with family, friends, or neighbors: 3 or more times per week How often do you get together with friends or relatives: 3 or more times per week How often do you attend baptist or anabaptism services: never Do you belong to any clubs or organizations such as baptist groups unions, [employer] or athletic groups, or school groups: no Total score: 1 Score interpretation: A score of less than or equal to 1 indicates the most socially isolated. Little interest or pleasure in doing things: several days Feeling down, depressed, or hopeless: several days Feel stressed/tense/nervous/anxious/difficulty sleeping: not at all Due to disability, difficulty making decisions: No Exam Constitutional Vital Signs, click to edit/add: Last Vital Signs Temp 97.5 F L 07/16/23 00:20 Pulse 108 H 07/16/23 02:20 Resp 26 H 07/16/23 02:20 BP 99/48 L 07/16/23 02:16 Pulse Ox 73 L 07/16/23 01:02 O2 Del Method Nasal Cannula 07/16/23 00:25 O2 Flow Rate 4 07/16/23 00:25 General appearance: frail appearing and appears older than stated age Nutritional appearance: thin and underweight HENME Common normals: normocephalic and head/scalp atraumatic Eye Common normals: EOMs intact bilaterally and conjunctivae normal Respiratory Common normals: normal respiratory effort, no retractions, no use of accessory muscles and clear to auscultation bilaterally Cardio Common normals: regular rate, regular rhythm, S1 normal heart sound and S2 normal heart sound GI Common normals: Normal to inspection, nondistended, normoactive bowel sounds present, soft to palpation and non-tender Extremity Common normals: normal to inspection and full ROM Neuro Common normals: oriented x3, moves all extremities and no focal motor deficits Psych Appearance: grossly normal Course Vital Signs Vital signs: Vital Signs Temperature 97.5 F L 07/16/23 00:20 Pulse Rate 101 H 07/16/23 00:20 Respiratory Rate 24 07/16/23 00:20 Blood Pressure 73/56 L 07/16/23 00:20 Pulse Oximetry 77 L 07/16/23 00:20 Oxygen Delivery Method Room Air 07/16/23 00:20 Temperature 97.5 F L 07/16/23 00:20 Pulse Rate 108 H 07/16/23 02:20 Respiratory Rate 26 H 07/16/23 02:20 Blood Pressure 99/48 L 07/16/23 02:16 Pulse Oximetry 73 L 07/16/23 01:02 Oxygen Delivery Method Nasal Cannula 07/16/23 00:25 Oxygen Delivery Flow Rate 4 07/16/23 00:25 MDM - Altered Mental Status MDM Narrative Medical decision making narrative: patient presents from home with period of unresponsiveness, gen. weakness, hypotensive and hypoxemia. Past history of GI cancer that he and family states was treated. History of bleeding ulcer. stool heme positive. CT with findings of stool impaction and RLL pneumonia. Hypotension improved with hydration. labs with severe anemia with Hgb 6.0. Patient type and crossed for 2u PRBCs. RA pulse ox 73% on arrival to department . corrected to 95% with 4L NC 02. Patient in no respiratory distress. Lab Data Labs: Lab Results 07/16/23 07/16/23 07/16/23 Range/Units 00:59 01:45 02:05 WBC 12.8 H (4.0-11.0) 10^3/uL RBC 1.86 L (4.70-6.10) 10^6/uL Hgb 6.0 L* (14.0-18.0) g/dL Hct 20.0 L* (42.0-54.0) % MCV 107.5 H (80.0-94.0) fL MCH 32.3 (25.9-34.0) pg MCHC 30.0 (29.9-35.2) g/dL RDW 12.5 (11.0-15.0) % Plt Count 313 (150-450) 10^3/uL MPV 9.4 L (9.5-13.5) fL Neut % (Auto) 85.3 H (43.0-75.0) % Lymph % (Auto) 8.1 L (20.5-60.0) % [place] % (Auto) 5.3 (1.7-12.0) % Eos % (Auto) 0.8 L (0.9-7.0) % Baso % (Auto) 0.2 (0.2-2.0) % Neut # (Auto) 11.0 H (1.4-6.5) 10^3/uL Lymph # (Auto) 1.0 L (1.2-3.8) 10^3/uL [place] # (Auto) 0.7 (0.3-0.8) 10^3/uL Eos # (Auto) 0.1 (0.0-0.7) 10^3/uL Baso # (Auto) 0.0 (0.0-0.1) 10^3/uL Abs Immat Gran (auto) 0.04 H (0.00-0.03) 10^3/uL Imm/Tot Granulo (auto) 0.3 (0.0-0.5) % Sodium 140 (136-145) mmol/L Potassium 4.4 (3.5-5.1) mmol/L Chloride 107 (98-107) mmol/L Carbon Dioxide 15.2 L (21.0-32.0) mmol/L Anion Gap 22.2 BUN 51.0 H (7.0-18.0) mg/dL Creatinine 1.11 (0.70-1.30) mg/dL Est GFR ( Amer) >60 (>=60) Est GFR (Non-Af Amer) >60 (>=60) BUN/Creatinine Ratio 45.9 Glucose 183 H (74-106) mg/dL Lactate 7.0 H* (0.4-2.0) mmol/L Calcium 8.2 L (8.5-10.1) mg/dL Total Bilirubin 0.1 L (0.2-1.0) mg/dL AST 15 (15-37) U/L ALT 18 (16-63) U/L Alkaline Phosphatase 95 (46-116) U/L Troponin I High Sens 7.0 (4.0-76.1) pg/mL Total Protein 5.8 L (6.4-8.2) g/dL Albumin 2.4 L (3.4-5.0) g/dL Globulin 3.4 g/dL Albumin/Globulin Ratio 0.7 Lipase <10.0 L (16.0-77.0) U/L Gastric Fluid pH 4.0 Gastric Occult Blood Negative Stool Occult Blood Blood Type A Positive Antibody Screen Negative Crossmatch See Detail 07/16/23 Range/Units 02:08 WBC (4.0-11.0) 10^3/uL RBC (4.70-6.10) 10^6/uL Hgb (14.0-18.0) g/dL Hct (42.0-54.0) % MCV (80.0-94.0) fL MCH (25.9-34.0) pg MCHC (29.9-35.2) g/dL RDW (11.0-15.0) % Plt Count (150-450) 10^3/uL MPV (9.5-13.5) fL Neut % (Auto) (43.0-75.0) % Lymph % (Auto) (20.5-60.0) % [place] % (Auto) (1.7-12.0) % Eos % (Auto) (0.9-7.0) % Baso % (Auto) (0.2-2.0) % Neut # (Auto) (1.4-6.5) 10^3/uL Lymph # (Auto) (1.2-3.8) 10^3/uL [place] # (Auto) (0.3-0.8) 10^3/uL Eos # (Auto) (0.0-0.7) 10^3/uL Baso # (Auto) (0.0-0.1) 10^3/uL Abs Immat Gran (auto) (0.00-0.03) 10^3/uL Imm/Tot Granulo (auto) (0.0-0.5) % Sodium (136-145) mmol/L Potassium (3.5-5.1) mmol/L Chloride (98-107) mmol/L Carbon Dioxide (21.0-32.0) mmol/L Anion Gap BUN (7.0-18.0) mg/dL Creatinine (0.70-1.30) mg/dL Est GFR ( Amer) (>=60) Est GFR (Non-Af Amer) (>=60) BUN/Creatinine Ratio Glucose (74-106) mg/dL Lactate (0.4-2.0) mmol/L Calcium (8.5-10.1) mg/dL Total Bilirubin (0.2-1.0) mg/dL AST (15-37) U/L ALT (16-63) U/L Alkaline Phosphatase (46-116) U/L Troponin I High Sens (4.0-76.1) pg/mL Total Protein (6.4-8.2) g/dL Albumin (3.4-5.0) g/dL Globulin g/dL Albumin/Globulin Ratio Lipase (16.0-77.0) U/L Gastric Fluid pH Gastric Occult Blood Stool Occult Blood Positive A Blood Type Antibody Screen Crossmatch Critical Care Time Critical Care Time Total Critical Care Time: 45 Discharge Plan Discharge Chief Complaint: Nausea/Vomiting/Diarrhea Clinical Impression: GI (gastrointestinal bleed), Anemia, Fecal impaction, RLL pneumonia Patient Disposition: Admitted As Inpatient
--- OUTSIDE RECORDS SUMMARY | 2023-07-16 00:40 | XMS_ITS | CCD ---
Author Name Unknown Address [address] [place] [address] Organization [facility] Care Team Providers Care Svp Chief Marketing Officer Name Role Phone MICHAEL JOLLEY) Unavailable Unavailable MICHAEL JOLLEY) Unavailable Unavailable YAMILE CERDA Unavailable Unavailable MICHAEL JOLLEY) Unavailable Unavailable MICHAEL JOLLEY) Unavailable Unavailable MICHAEL JOLLEY) Unavailable Unavailable MICHAEL JOLLEY) Unavailable Unavailable HARMONY HINOJOSA Unavailable Unavailable MAU DUFFY Unavailable Unavailable ADRIANE NICHOLS Unavailable Unavailab manolo Unavailable Unavailable Jose Segura DO Unavailable [phone] Henry BOOM OPERATOR.Rola MILAN Unavailable David Caputo MD Primary Care Provider Nate Hanson Unavailable Fortino Segura DOothy J Unavailable Henry BOOM OPERATOR.Rola MILAN Unavailable David Caputo MD Primary Care Provider David Caputo Unavailable Jose Segura DO Unavailable David Caputo MD Primary Care Provider David Caputo MD Primary Care Provider Jose Segura DO Unavailable Henry BOOM OPERATOR.Rola MILAN Unavailable David Caputo MD Primary Care Provider DR DAVID CAPUTO Admitting Unavailable CAPUTO, DR DAVID Meza Attending Unavailable CAPUTO, DR DAVID Meza Consulting Unavailable CAPUTO, DR DAVID Meza Primary Care Unavailable BRADY, DR IRVING Atkins Admitting Unavailabl e CAPUTO, DR DAVID Meza Primary Care Unavailable BRADY, DR IRVING Atkins Attending Unavailabl e BRADY, DR IRVING Atkins Consulting Unavailabl e CAPUTO, DR DAVID Meza Admitting Unavailable Zieber, DR Trujillo Consulting Unavailable CAPUTO, DR DAVID Meza Attending Unavailable CAPUTO, DR DAVID Meza Primary Care Unavailable CAPUTO, DR DAVID Meza Consulting Unavailable PAY, DR RAY Consulting Unavailable ASHLY ., DENISE Admitting Unavailable ASHLY ., DENISE Attending Unavailable CAPUTO, DR DAVID Meza Primary Care Unavailable GREAASHISH, SAIMA BHAGAT Consulting Unavailable Nefwon, Mar Consulting Unavailable ASHLY ., DENISE Consulting Unavailable PAGE, FER Diaz Consulting Unavailable CAPUTO, DR DAVID Meza Admitting Unavailable CAPUTO, DR DAVID Meza Attending Unavailable CAPUTO, DR DAVID Meza Consulting Unavailable CAPUTO, DR DAVID Meza Primary Care Unavailable CAPUTO, DR DAVID Meza Admitting Unavailable CAPUTO, DR DAVID Meza Attending Unavailable CAPUTO, DR DAVID Meza Consulting Unavailable CAPUTO, DR DAVID Meza Primary Care Unavailable Caputo, David Unavailable Brady, Dr. Irving Gutiérrez Referring Unava ilable Brady, Dr. Irving Gutiérrez Attending Unava ilable Harshal, Dr. David Rodriguez Primary Care Unav ailable Harshal, Dr. David Rodriguez Primary Care Unav ailable Brady, Dr. Irving Gutiérrez Referring Unava ilable Brady, Dr. Irving Gutiérrez Attending Unava ilkinsey Caputo, MD David Meza Primary Care Provider [phone] MD Adriane Espitia Attending Provider Dr. Adriane Espitia Unavailable Unavailable Adriane Espitia Attending Unavailable David Caputo Primary Care Unavailable Adriane Espitia Admitting Unavailable David Caputo Primary Care Unavailable Adriane Espitia Admitting Unavailable Adriane Espitia Attending Unavailable DAVID CAPUTO E Primary Care Unavailable ABHYANKAR, ZAHRA Referring Unavailable CAPUTODAVID Primary Care Unavailable ABHYANKAR, ZAHRA Referring Unavailable CAPUTODAVID Primary Care Unavailable CAPUTODAVID Primary Care Unavailable ABHYANKAR, ZAHRA Referring Unavailable ABHYANKAR, ZAHRA Attending Unavailable CAPUTO, DAVID E Primary Care Unavailable ABHYANKAR, ZAHRA Referring Unavailable CAPUTO, DAVID E Primary Care Unavailable ABHYANKAR, ZAHRA Referring Unavailable ABHYANKAR, ZAHRA Attending Unavailable CAPUTO, DAVID E Primary Care Unavailable ABHYANKAR, ZAHRA Referring Unavailable CAPUTO, DAVID E Primary Care Unavailable CAPUTO, DAVID E Primary Care Unavailable ABHYANKAR, ZAHRA Referring Unavailable ABHYANKAR, ZAHRA Attending Unavailable CAPUTO, DAVID E Primary Care Unavailable CAPUTO, DAVID E Primary Care Unavailable ABHYANKAR, ZAHRA Referring Unavailable ABHYANKAR, ZAHRA Attending Unavailable CAPUTO, DAVID E Primary Care Unavailable ABHYANKAR, ZAHRA Referring Unavailable CAPUTO, DAVID E Primary Care Unavailable CAPUTO, DAVID E Primary Care Unavailable ABHYANKAR, ZAHRA Referring Unavailable CAPUTO, DAVID E Primary Care Unavailable ABHYANKAR, ZAHRA Referring Unavailable CAPUTO, DAVID E Primary Care Unavailable ABHYANKAR, ZAHRA Referring Unavailable CAPUTO, DAVID E Primary Care Unavailable ABHYANKAR, ZAHRA Referring Unavailable CAPUTO, DAVID E Primary Care Unavailable ABHYANKAR, ZAHRA Referring Unavailable CAPUTO, DAVID E Primary Care Unavailable ABHYANKAR, ZAHRA Referring Unavailable ABHYANKAR, ZAHRA Attending Unavailable CAPUTO, DAVID E Primary Care Unavailable ABHYANKAR, ZAHRA Referring Unavailable CAPUTO, DAVID E Primary Care Unavailable ABHYANKAR, ZAHRA Referring Unavailable ABHYANKAR, ZAHRA Attending Unavailable CAPUTO, DAVID E Primary Care Unavailable ABHYANKAR, ZAHRA Referring Unavailable CAPUTO, DAVID E Primary Care Unavailable ABHYANKAR, ZAHRA Referring Unavailable ABHYANKAR, ZAHRA Attending Unavailable CAPUTO, DAVID E Primary Care Unavailable ABHYANKAR, ZAHRA Referring Unavailable CAPUTO, DAVID E Primary Care Unavailable ABHYANKAR, ZAHRA Referring Unavailable CAPUTO, DAVID E Primary Care Unavailable ABHYANKAR, ZAHRA Referring Unavailable CAPUTO, DAVID E Primary Care Unavailable ABHYANKAR, ZAHRA Referring Unavailable CAPUTO, DAVID E Primary Care Unavailable ABHYANKAR, ZAHRA Referring Unavailable ROLA GORDON Attending Unavailable Allergies Allergy Classification Reported Allergen(s) Allergy Type Date of Onset Reaction(s) Facility (8 sources) Angiotensin Converting Enzyme (Ophelia) Inhibitors; Translations: [OPHELIA Inhibitors] Allergy to drug (finding) [place] [address] DO Work Phone: (1 source) patient allergy list reviewed by nurse or physicia Propensity to adverse reactions 8 Comment:Done [facility] Other (1 source) Allergies Reconciled Propensity to adverse reactions 1 Unknown [facility] Other Medications Current Medications Medication Drug Class(es) Dates Sig (Normalized) Sig (Original) acetaminophen 325 mg oral tablet (20 sources) Start: 02-05-2023 take 2 tablets by mouth every four hours as needed for pain Tylenol Oral Tablet 325 MG 2 tablet Tablet Oral Give 2 tablet by mouth every 4 hours as needed for pain Do not exceed 4 grams in 24 hours 02/05/2023 2:45:00 Start: 10-09-2017 take 650 mg by mouth every six hours as needed acetaminophen (TYLENOL) 650 mg/20.3 mL soln Take 20.3 mL by mouth every 6 hours as needed. 0 10/09/2017 Active Comment on above: Take 20.3 mL by mout h every 6 hours as needed. acetaminophen 325 mg / HYDROcodone bitartrate 5 mg oral tablet (20 sources) Opioid Agonist Start: 10-28-2022 take 1 tablet by mouth four times daily as needed HYDROcodone-Acet aminophen 5-325 MG 1 tablet Orally four times daily, as needed for 7 days October, Active Start: 09-29-2022 take 1 tablet by tripp th four times daily as needed HYDROcodone-Acetaminophen 5-325 MG 1 tab let Orally four times daily, as needed for 7 days Sep, Active Start: 09-08-2022 take 1 tablet by tripp th four times daily as needed HYDROcodone-Acetaminophen 5-325 MG 1 tab let Orally four times daily, as needed for 7 days Aug, Active Start: 08-25-2022 take 1 tablet by tripp th four times daily as needed HYDROcodone-Acetaminophen 5-325 MG 1 tab let Orally four times daily, as needed for 7 days Jul, Active ALPRAZolam 0.25 mg oral tablet (20 sources) Benzodiazepine Start: 06-30-2023 take 1 tablet by mouth twice daily as needed ALPRAZolam 0.25 mg TAKE ONE TABLET BY MOUTH TWICE A DAY NEEDED for 30 Jun, Active Start: 03-17-2018 take 1 tablet by tripp th twice daily as needed ALPRAZolam 0.25 mg TAKE ONE TABLET BY MOUTH TWICE A DAY NEEDED for 30 10 Mar, 2023 Active Start: 03-17-2018 End: 03-28-2023 ALPRAZolam (XANAX) 0.25 mg t ablet Indications: Cancer of ampulla of Vater (HCC) , Duodenal obstruction , Abnormal weight loss Take 0.25 mg by mouth as needed. 0 03/17/2018 Active ALPRAZolam Activ e Comment on above: Take 0.25 mg by mout h as needed. apixaban 2.5 mg oral tablet (20 sources) Factor Xa Inhibitor Start: 01-23-2023 take 1 tablet by mouth once daily Eliquis Oral Tablet 2.5 MG 1 tablet Tablet Oral Give 1 tablet by mouth every day and evening shift related to PAROXYSMAL ATRIAL FIBRILLATION (I48.0) 01/23/2023 15:00:00 Start: 12-13-2018 take 1 tablet by tripp th twice daily ELIQUIS 2.5 mg tab tab(s) Take 2.5 mg by mouth twice daily. 9 12/13/2018 Active Eliquis Active Comment on above: Take 2.5 mg by mouth twice daily. baclofen 5 mg oral tablet (20 sources) gamma-Aminobutyric Acid-ergic Agonist Start: 01-23-2023 take 1 tablet by mouth every twelve hours as needed for muscle spasms Baclofen Oral Tablet 5 MG 1 tablet Tablet Oral Give 1 tablet by mouth every 12 hours as needed for Muscle spasms 01/23/2023 14:00:00 take 1 tablet by mouth every twe lve hours Baclofen 10 MG 1 tablet as needed Orally Twice a day Active Cholecalciferol (2 sources) Vitamin D Start: 01-28-2023 take 1 tablet by mouth once daily Cholecalciferol Oral Tablet 250 MCG (67311 UT) 1 tablet Tablet Oral Give 1 tablet by mouth every day shift related to 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) 01/28/2023 7:00:00 take 1 capsule by mouth once arjun ly Vitamin D3 1.25 MG (89631 UT) Oral Capsule TAKE 1 CAPSULE Daily Quantity: 0 Refills: 0 Ordered: 16-Sep-2022 DO Active Creon Oral Capsule Delayed Release Particles [id number] UNIT (2 sources) Start: 02-08-2023 take 99590-34890 [IU] by mouth at mealtime Creon Oral Capsule Delayed Release Particles [id number] UNIT 2 capsule Capsule Delayed Release Particles Oral Give 2 capsule by mouth with meals related to GASTRO-ESOPHAGEAL REFLUX DISEASE WITHOUT ESOPHAGITIS (K21.9);[facility] DIS 02/08/2023 12:00:00 Start: 01-23-2023 End: 02-08-2023 take [id number] [IU] by mouth at mealtime Creon Oral Capsule Delayed Release Particles [id number] UNIT 2 capsule Capsule Delayed Release Particles Oral Give 2 capsule by mouth with meals related to GASTRO-ESOPHAGEAL REFLUX DISEASE WITHOUT ESOPHAGITIS (K21.9);[facility] DIS 01/23/2023 17:00:00 02/08/2023 8:05:00 Aborted enteric contrast (will be provided with radiology test) (5 sources) Start: 03-16-2023 End: 03-17-2023 enteric contrast (will be pr ovided with radiology test) Indications: Cancer of ampulla of Vater (HCC) , Anemia due to vitamin B12 deficiency, unspecified B12 deficiency type , Severe protein-calorie malnutrition (HCC) For CT CHESTABD/PEL W IVCON Routine order Administer, As Directed One Time Only, via Oral, Rectal, both Oral and Rectal, Enteric Tube, Stoma or Indwelling Catheter, Enteric Contrast as designated per enteric contrast guidelines 1 Each 0 03/16/2023 03/17/2023 Active Start: 06-06-2022 End: 06-07-2022 enteric contrast (will be pr ovided with radiology test) Indications: Interstitial pulmonary disease (HCC) , Cancer of ampulla of Vater (HCC) , Anemia due to vitamin B12 deficiency, unspecified B12 deficiency type For CT CHESTABD/PEL W IVCON Routine order Administer, As Directed One Time Only, via Oral, Rectal, both Oral and Rectal, Enteric Tube, Stoma or Indwelling Catheter, Enteric Contrast as designated per enteric contrast guidelines 1 Each 0 06/06/2022 06/07/2022 Start: 12-05-2021 End: 12-06-2021 enteric contrast (will be pr ovided with radiology test) Indications: Iron deficiency anemia, unspecified iron deficiency anemia type , Cancer of ampulla of Vater (HCC) , Adenocarcinoma (HCC) For CT CHESTABD/PEL W IVCON Routine order Administer, As Directed One Time Only, via Oral, Rectal, both Oral and Rectal, Enteric Tube, Stoma or Indwelling Catheter, Enteric Contrast as designated per enteric contrast guidelines 1 Each 0 12/05/2021 12/06/2021 Start: 08-22-2019 End: 12-05-2021 enteric contrast (will be pr ovided with radiology test) For CT CHESTABD/PEL W IVCON Routine order Administer, As Directed One Time Only, via Oral, Rectal, both Oral and Rectal, Enteric Tube, Stoma or Indwelling Catheter, Enteric Contrast as designated per enteric contrast guidelines 1 Each 0 08/22/2019 12/05/2021 Discontinued (Discontinued by Patient) Start: 08-22-[address] (will be provided with radiology test) For CT CHESTABD/PEL W IVCON Routine order Administer, As Directed One Time Only, via Oral, Rectal, both Oral and Rectal, Enteric Tube, Stoma or Indwelling Catheter, Enteric Contrast as designated per enteric contrast guidelines 1 Each 0 08/22/2019 Active Comment on above: For CT CHESTABD/PEL W IVCON Routine order Administer, As Directed One Time Only, via Oral, Rectal, both Oral and Rectal, Enteric Tube, Stoma or Indwelling Catheter, Enteric Contrast as designated per enteric contrast guidelines FLUoxetine (20 sources) Serotonin Reuptake Inhibitor Start: 01-24-2023 End: 01-23-2023 take 1 tablet by mouth once daily FLUoxetine HCl Oral Tablet 20 MG 1 tablet Tablet Oral Give 1 tablet by mouth every day shift related to DEPRESSION, UNSPECIFIED (F32.A) 01/24/2023 7:00:00 01/23/2023 20:17:00 Aborted Start: 01-24-2023 take 1 capsule by mo [facility] once daily FLUOXETINE HCL 20 MG CAPSULE{100 EA} 1 capsule Capsule Oral GIVE 1 CAPSULE BY MOUTH ONCE DAILY (FORMULARY EQUIVALENT FOR TABLET) 01/24/2023 7:00:00 Start: 11-13-2022 take 1 capsule by mo [facility] every twenty-four hours FLUoxetine HCl 40 MG 1 capsule Orally Once a day for 30 days October, Active Start: 08-13-2022 take 1 capsule by mo [facility] once daily FLUoxetine HCl 20 MG 1 capsule Orally Once a day for 90 days Jul, Active Start: 08-13-2022 take 1 capsule by [facility] every twenty-four hours FLUoxetine HCl 20 MG 1 capsule Orally Once a day for 90 days Jul, Active Start: 03-04-2019 take 20 mg by mouth once daily Fluoxetine Active 20 MG PO Daily March 04, 2019 12:00am Start: 03-17-2018 take 1 capsule by [facility] twice daily FLUoxetine HCl (PROZAC) 40 mg capsule Indications: Cancer of ampulla of Vater (HCC) , Duodenal obstruction , Abnormal weight loss Take 40 mg by mouth twice daily. 0 03/17/2018 Active Fluoxetine Activ e Comment on above: Take 40 mg by mouth twice daily. iv contrast (will be provided with radiology test) (5 sources) Start: 03-16-2023 End: 03-17-2023 iv contrast (will be provided with radiology test) Indications: Cancer of ampulla of Vater (HCC) , Anemia due to vitamin B12 deficiency, unspecified B12 deficiency type , Severe protein-calorie malnutrition (HCC) CT Chest ABD/PEL-Inject, intravenously, once for 1 dose.No IV access, insert saline lock prior to the beginning of sedation, infusion, injection of imaging exam. Discontinue saline lock post exam. If Pt. has a central line or IVAD, may access for administration according to line specific nursing protocol. Once exam is complete flush line and de-access according to line specific nursing protocol in the CT contrast administration guidelines link. 1 Each 0 03/16/2023 03/17/2023 Active Start: 06-06-2022 End: 06-07-2022 iv contrast (will be provide d with radiology test) Indications: Interstitial pulmonary disease (HCC) , Cancer of ampulla of Vater (HCC) , Anemia due to vitamin B12 deficiency, unspecified B12 deficiency type CT Chest ABD/PEL-Inject, intravenously, once for 1 dose.No IV access, insert saline lock prior to the beginning of sedation, infusion, injection of imaging exam. Discontinue saline lock post exam. If Pt. has a central line or IVAD, may access for administration according to line specific nursing protocol. Once exam is complete flush line and de-access according to line specific nursing protocol in the CT contrast administration guidelines link. 1 Each 0 06/06/2022 06/07/2022 Start: 12-05-2021 End: 12-06-2021 iv contrast (will be provide d with radiology test) Indications: Iron deficiency anemia, unspecified iron deficiency anemia type , Cancer of ampulla of Vater (HCC) , Adenocarcinoma (HCC) CT Chest ABD/PEL-Inject, intravenously, once for 1 dose.No IV access, insert saline lock prior to the beginning of sedation, infusion, injection of imaging exam. Discontinue saline lock post exam. If Pt. has a central line or IVAD, may access for administration according to line specific nursing protocol. Once exam is complete flush line and de-access according to line specific nursing protocol in the CT contrast administration guidelines link. 1 Each 0 12/05/2021 12/06/2021 Start: 08-22-2019 End: 12-05-2021 iv contrast (will be provide d with radiology test) CT Chest ABD/PEL-Inject, intravenously, once for 1 dose.No IV access, insert saline lock prior to the beginning of sedation, infusion, injection of imaging exam. Discontinue saline lock post exam. If Pt. has a central line or IVAD, may access for administration according to line specific nursing protocol. Once exam is complete flush line and de-access according to line specific nursing protocol in the CT contrast administration guidelines link. 1 Each 0 08/22/2019 12/05/2021 Discontinued (Discontinued by Patient) Start: 08-22-2019 iv contrast (w ill be provided with radiology test) CT Chest ABD/PEL-Inject, intravenously, once for 1 dose.No IV access, insert saline lock prior to the beginning of sedation, infusion, injection of imaging exam. Discontinue saline lock post exam. If Pt. has a central line or IVAD, may access for administration according to line specific nursing protocol. Once exam is complete flush line and de-access according to line specific nursing protocol in the CT contrast administration guidelines link. 1 Each 0 08/22/2019 Active Comment on above: CT Chest ABD/PEL-Inj ect, intravenously, once for 1 dose.No IV access, insert saline lock prior to the beginning of sedation, infusion, injection of imaging exam. Discontinue saline lock post exam. If Pt. has a central line or IVAD, may access for administration according to line specific nursing protocol. Once exam is complete flush line and de-access according to line specific nursing protocol in the CT contrast administration guidelines link. Janumet XR Oral Tablet Extended Release 24 Hour 50-1000 MG (1 source) Start: 01-24-20 23 Janumet XR Oral Tablet Extended Release 24 Hour 50-1000 MG 1 tablet Tablet Extended Release 24 Hour Oral Give 1 tablet by mouth every day and evening shift related to TYPE 2 DIABETES MELLITUS WITHOUT COMPLICATIONS (E11.9) 01/23/2023 15:00:00 metFORMIN hydrochloride 1000 mg oral tablet (20 sources) Biguanide Start: 08-07-19 18 End: 12-06-19 take 1000 mg by mouth twice daily Metformin Active 1000 MG PO Twice daily August 07, 2017 1:00am take 1 tablet by tripp th every twelve hours metFORMIN HCl - 1000 MG Oral Tablet TAKE 1 TABLET EVERY 12 HOURS. Quantity: 0 Refills: 0 Ordered: 09-Jan-2022 DO Active metFORMIN HCl No t-Taking Comment on above: Take 1,000 mg by tripp th twice daily with meals. metFORMIN hydrochloride 1000 mg / SITagliptin 50 mg oral tablet (20 sources) Biguanide, Dipeptidyl Peptidase 4 Inhibitor Start: 3 take 1 tablet by mouth every twelve hours Janumet 50-1000 MG 1 tablet with meals Orally Twice a day for 30 days Nov, Active 24 hr metoprolol succinate 25 mg extended release oral tablet (20 sources) beta-Adrenergic Juni Start: 9 take 25 mg by mouth once daily Metoprolol Succinate Active 25 MG PO Daily March 04, 2019 12:00am Start: 03-17-2018 take 1 tablet by tripp th every twenty-four hours Metoprolol Succinate ER 25 MG 1 tablet Orally Once a day Jul, Active Metoprolol Succi mario Active Comment on above: Take 25 mg by mouth once daily. Metoprolol Succinate Oral Capsule ER 24 Hour Sprinkle 25 MG (1 source) Start: 01-24-2023 take 1 capsule by mouth once daily Metoprolol Succinate Oral Capsule ER 24 Hour Sprinkle 25 MG 1 capsule Capsule ER 24 Hour Sprinkle Oral Give 1 capsule by mouth every day shift related to PAROXYSMAL ATRIAL FIBRILLATION (I48.0);ESSENTIAL (PRIMARY) HYPERTENSI 01/24/2023 7:00:00 mirtazapine 15 mg oral tablet (20 sources) Start: 01-23-2023 End: 03-28-2023 take 1 tablet by mouth every twenty-four hours as needed for anxiety Mirtazapine Oral Tablet 15 MG 1 tablet Tablet Oral Give 1 tablet by mouth every 24 hours as needed for Sleep related to ANXIETY DISORDER, UNSPECIFIED (F41.9) for 60 Days 01/27/2023 19:00:00 03/28/2023 18:59:00 Start: 01-01-2023 take 1 tablet by tripp th every twenty-four hours Remeron 15 MG 1 tablet at bedtime Orally Once a day for 30 days Dec, Active Multivitamin Oral Tablet (1 source) Start: 01-24-2023 take 1 tablet by mouth once daily Multivitamin Oral Tablet 1 tablet Tablet Oral Give 1 tablet by mouth every day shift for Supplement related to WHIPPLE'S DISEASE (K90.81) 01/24/2023 7:00:00 True Metrix Blood Glucose Test - (13 sources) Start: 03-17-2023 True Metrix Bl ood Glucose Test - as directed In Vitro to test once daily for 30 days Feb, Active Completed/Discontinued Medications Medication Drug Class(es) Dates Sig (Normalized) Sig (Original) acetaminophen 325 mg / oxyCODONE hydrochloride 5 mg oral tablet (2 sources) Opioid Agonist Start: 08-11-2017 End: 08-18-2017 take 2 tablets by mouth every four to six hours Oxycodone-Acetamin ophen (Percocet) 5-325 mg tablet Discontinued 2 TAB PO EVERY 4-6 HOURS 56 7 August 11, 2017 August 18, 2017 1:02am amylase [id number] unt / lipase [id number] unt / protease [id number] unt delayed release oral capsule (20 sources) Start: 03-04-2019 End: 11-28-2022 take 2 capsules by mouth three times daily at mealtime onwnld-hvbaqhca-vz ylase (CREON 24) 24,000-76,000 -120,000 unit delayed release capsule Indications: Iron deficiency anemia, unspecified iron deficiency anemia type , Duodenal obstruction Take 2 capsules by mouth three times daily with meals. 540 capsule 1 11/28/2022 Active Comment on above: Take 2 capsules by m out three times daily with meals. aspirin 162 mg oral tablet (2 sources) Platelet Aggregation Inhibitor, Nonsteroidal Anti-inflammatory Drug Start: 08-07-2017 End: 03-04-2019 take 162 mg by mouth once daily in the morning Aspirin Discontinued 162 MG PO Every morning August 07, 2017 1:00am March 04, 2019 10:43pm atorvastatin 20 mg oral tablet (20 sources) HMG-CoA Reductase Inhibitor Start: 02-04-2023 take 1 tablet by mouth at bedtime Atorvastatin Calcium 20 MG Oral Tablet TAKE 1 TABLET AT BEDTIME. Quantity: 90 Refills: 3 Ordered: 13-Feb-2023 Woody Duffy BOOM OPERATOR-DIVIDEND DEPOSIT VOUCHER CLERKMau Start : 13-Feb-2023 Active dose decrease Start: 08-07-2017 End: 02-03-2023 take 1 tablet by mouth once daily in the evening Atorvastatin Calcium Oral Tablet 40 MG 1 tablet Tablet Oral Give 1 tablet by mouth every evening shift related to PURE HYPERCHOLESTEROLEMIA, UNSPECIFIED (E78.00) 01/23/2023 15:00:00 02/03/2023 17:36:00 Aborted Comment on above: Take 40 mg by mouth daily at bedtime. capecitabine (14 sources) Nucleoside Metabolic Inhibitor Xeloda Not-Taking carvedilol 25 mg oral tablet (2 sources) alpha-Adrenergic Juni, beta-Adrenergic Juni Start: 08-07-19 18 End: 03-04-20 19 take 25 mg by mouth twice daily Carvedilol Discontinued 25 MG PO Twice daily August 07, 2017 1:00am March 04, 2019 10:43pm sugar-free cholestyramine resin 4000 mg powder for oral suspension (20 sources) Bile Acid Sequestrant take 4 g by mouth three times daily at mealtime Cholestyramine-Aspa rtame (CHOLESTYRAMINE LIGHT) 4 gram powder Take 4 g by mouth three times daily with meals. 0 Active Comment on above: Take 4 g by mouth th ree times daily with meals. empagliflozin 25 mg oral tablet (20 sources) Sodium-Glucose Cotransporter 2 Inhibitor Start: 12-27-19 20 JARDIANCE 25 mg tablet JARDIANCE Not-Ta remy folic acid 1 mg oral tablet (20 sources) Start: 03-08-2022 End: 03-30-2023 take 1 tablet by mouth once daily folic acid 1 mg tablet Take 1 tablet by mouth once daily. 90 tablet 3 03/30/2023 Active Comment on above: Take 1 tablet by tripp th once daily. gemcitabine (14 sources) Nucleoside Metabolic Inhibitor Gemcitabine HCl Not-Taking glipiZIDE 5 mg oral tablet (20 sources) Sulfonylurea take 1 tablet by mouth twice daily before mealtime glipiZIDE (GLUCOTROL) 5 mg tablet Take 5 mg by mouth twice daily before meals. 0 Active Comment on above: Take 5 mg by mouth t wice daily before meals. lisinopril 2.5 mg oral tablet (2 sources) Angiotensin Converting Enzyme Inhibitor Start: 08-07-2017 End: 03-04-2019 take 2.5 mg by mouth once daily in the morning Lisinopril Discontinued 2.5 MG PO Every morning August 07, 2017 1:00am March 04, 2019 10:43pm metoclopramide 10 mg oral tablet (20 sources) Dopamine-2 Receptor Antagonist Start: 01-26-2022 End: 02-10-2022 take 1 tablet by mouth once daily metoclopramide HCl (REGLAN) 10 mg tablet Take 1 tablet by mouth once daily. 30 tablet 3 01/26/2022 02/10/2022 Discontinued Start: 03-04-2019 End: 02-08-2023 take 1 tablet by mouth three times daily at mealtime metoclopramide HCl (REGLAN) 10 mg tablet Take 1 tablet by mouth three times daily with meals. 90 tablet 1 01/19/2023 Active Start: 03-04-2019 End: 10-15-2021 take 1 tablet by mouth before mealtime Metoclopramide Hcl (Reglan) 10 mg Tablet Discontinued 10 MG PO before meals 90 July 29, 2021 3:56pm October 15, 2021 1:45pm Comment on above: Take 10 mg by mouth once daily. Take 1 tablet by tripp th three times daily with meals. Take 1 tablet by tripp th once daily. TAKE ONE TABLET BY M OUT THREE TIMES A DAY WITH MEALS nitroglycerin 0.4 mg sublingual tablet (20 sources) Nitrate Vasodilator Start: End: Nitroglycerin Discontinued 0.4 MG SUBLINGUAL Q5M August 07, 2017 1:00am February 28, 2020 11:29am Comment on above: Dissolve 0.4 mg unde r the tongue every 5 minutes as needed. omeprazole 20 mg delayed release oral capsule (2 sources) Proton Pump Inhibitor Start: End: take 20 mg by mouth once daily Omeprazole Discontinued 20 MG PO Daily August 07, 2017 1:00am March 04, 2019 10:43pm sAXagliptin 5 mg oral tablet (4 sources) Dipeptidyl Peptidase 4 Inhibitor Start: End: take 5 mg by mouth once daily in the morning Saxagliptin Discontinued 5 MG PO Every morning August 07, 2017 1:00am March 04, 2019 10:43pm Comment on above: Take 5 mg by mouth o nce daily. 72 hr scopolamine 0.0139 mg/hr transdermal system (2 sources) Anticholinergic Start: End: scopolamine (TRANSDERM-SCOP) 1 mg over 3 days Apply 1 Patch as directed every 72 hours as needed. 0 10/09/2017 12/05/2021 Discontinued Comment on above: Apply 1 Patch as dir ected every 72 hours as needed. SITagliptin 100 mg oral tablet (2 sources) Dipeptidyl Peptidase 4 Inhibitor Start: End: take 1 tablet by mouth once daily Sitagliptin Phosphate (Januvia) 100 mg Tablet Discontinued 100 MG PO Daily March 04, 2019 12:00am February 28, 2020 11:29am 24 hr venlafaxine 75 mg extended release oral tablet (20 sources) Serotonin and Norepinephrine Reuptake Inhibitor Start: End: take 75 mg by mouth once daily Venlafaxine Discontinued 75 MG PO Daily March 04, 2019 12:00am February 28, 2020 11:30am Start: 06-02-2018 take 1 capsule by mo uth once daily venlafaxine ER (EFFEXOR XR) 75 mg 24 hr capsule TAKE 1 CAPSULE BY MOUTH ONE TIME A DAY 0 06/02/2018 Active Comment on above: TAKE 1 CAPSULE BY MO UTH ONE TIME A DAY Problems Active Problems Problem Classification Problem Date Documented Da te Episodic/Chronic Abdominal pain (2 sources) Abdominal pain; Translations: [Unspecified abdominal pain] 08-13-2017 Episodic Anxiety disorders (20 sources) Anxiety disorder, unspecified; Translations: [Generalized anxiety disorder] Onset: 8 Chronic Cancer of other GI organs; peritoneum (20 sources) Malignant neoplasm of duodenum; 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] Onset: 8 10-20-2017 Chronic Cancer of other GI organs; peritoneum (6 sources) History of malignant neoplasm of pancreas; Translations: [Personal history of malignant neoplasm of other gastrointestinal tract] Episodic Cancer of pancreas (1 source) Malignant tumor of body of pancreas; Translations: [Malignant neoplasm of body of pancreas] Chronic Cancer of stomach (1 source) Personal history of other malignant neoplasm of stomach; Translations: [PERS HX OTH MALIG NEOPLASM STOMACH] Onset: 3 Episodic Cardiac dysrhythmias (20 sources) Paroxysmal atrial fibrillation; Translations: [Persistent atrial fibrillation] Onset: 8 Chronic Cardiac dysrhythmias (1 source) Cardiac dysrhythmias Onset: 8 Complications of surgical procedures or medical care (2 sources) Other complications of procedures, not elsewhere classified, sequela; Translations: [Postprocedural hypotension] Onset: 8 Episodic Congestive heart failure; nonhypertensive (1 source) Congestive heart failure stage C; Translations: [Congestive heart failure, unspecified] Chronic Coronary atherosclerosis and other heart disease (20 sources) Atherosclerotic heart disease of [place] coronary artery without angina pectoris; Translations: [Ischemic myocardial dysfunction] Onset: 8 Chronic Deficiency and other anemia (1 source) Other pancytopenia; Translations: [OTHER PANCYTOPENIA] Onset: 3 Chronic Deficiency and other anemia (20 sources) Iron deficiency anemia; Translations: [Iron deficiency anemia, unspecified] Onset: 8 04-08-2018 Episodic Deficiency and other anemia (20 sources) Nutritional anemia; Translations: [Vitamin B12 deficiency anemia, unspecified] Onset: 8 Episodic Deficiency and other anemia (5 sources) Nutritional anemia, unspecified; Translations: [NUTRITIONAL ANEMIA UNSPECIFIED] Onset: 2 Episodic Deficiency and other anemia (20 sources) Deficiency anemias; Translations: [Nutritional anemia, unspecified] Episodic Deficiency and other anemia (2 sources) Anemia; Translations: [Anemia, unspecified] 02-28-2020 Episodic Deficiency and other anemia (1 source) Anemia, unspecified; Translations: [Anemia, unspecified] Onset: 3 Episodic Deficiency and other anemia (1 source) Deficiency and other anemia Onset: 3 Delirium, dementia, and amnestic and other cognitive disorders (1 source) Frailty; 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] Chronic Diabetes mellitus with complications (20 sources) Type 2 diabetes mellitus with hyperglycemia; Translations: [Type II diabetes mellitus uncontrolled] Onset: 8 Chronic Diabetes mellitus without complication (20 sources) Diabetes mellitus; Translations: [Diabetes mellitus without mention of complication, type II or unspecified type, not stated as uncontrolled] Onset: 8 Chronic Disorders of lipid metabolism (20 sources) Hyperlipidemia; Translations: [Other and unspecified hyperlipidemia] Onset: 8 Chronic Esophageal disorders (1 source) Esophageal disorders Onset: 8 Essential hypertension (20 sources) Essential hypertension; Translations: [Unspecified essential hypertension] Onset: 2 Chronic Essential hypertension (1 source) Essential hypertension Onset: 8 Gastroduodenal ulcer (except hemorrhage) (20 sources) Ulcer of duodenum; Translations: [Duodenal ulcer, unspecified as acute or chronic, without hemorrhage or perforation] Onset: 8 Chronic Malaise and fatigue (20 sources) Weakness; Translations: [Fatigue] Onset: 3 Episodic Malignant neoplasm without specification of site (20 sources) Malignant adenomatous neoplasm; Translations: [Malignant (primary) neoplasm, unspecified] Onset: 8 11-06-2017 Chronic Mood disorders (2 sources) Mood disorders Onset: 3 Nausea and vomiting (2 sources) Nausea and vomiting; Translations: [Nausea with vomiting, unspecified] 03-05-2019 Episodic Nonspecific chest pain (5 sources) Chest pain, unspecified; Translations: [Other chest pain] Onset: 3 Episodic Nutritional deficiencies (20 sources) Unspecified severe protein-calorie malnutrition; Translations: [Deficiency of macronutrients] Onset: 8 10-09-2017 Chronic Occlusion or stenosis of precerebral arteries (7 sources) Arteriosclerosis of carotid artery; Translations: [Occlusion and stenosis of carotid artery without mention of cerebral infarction] Onset: 2 Chronic Other aftercare (6 sources) Health-related behavior finding; Translations: [Long-term (current) use of other medications] Episodic Other aftercare (6 sources) Drug therapy finding; Translations: [Long-term (current) use of anticoagulants] Episodic Other aftercare (1 source) FPC (current) use of anticoagulants; Translations: [FPC CURRNT USE ANTICOAGULANTS] Onset: 3 Episodic Other aftercare (1 source) Other parts counterman (current) drug therapy; Translations: [OTH FPC CURRENT DRUG THERAPY] Onset: 3 Episodic Other connective tissue disease (1 source) Pain in right hand Episodic Other connective tissue disease (1 source) Pain in left hand Episodic Other disorders of stomach and duodenum (1 source) Obstruction of duodenum; Translations: [Obstruction of duodenum] Onset: 8 Chronic Other disorders of stomach and duodenum (20 sources) Obstruction of duodenum; Translations: [Obstruction of duodenum] Onset: 8 08-27-2017 Chronic Other ear and sense organ disorders (13 sources) Impacted cerumen; Translations: [Impacted cerumen, bilateral] Episodic Other ear and sense organ disorders (1 source) Impacted cerumen, bilateral; Translations: [Impacted cerumen, bilateral] Episodic Other gastrointestinal disorders (20 sources) Diarrhea; Translations: [Diarrhea, unspecified] Episodic Other gastrointestinal disorders (6 sources) History of gastrointestinal bleed; Translations: [Personal history of other diseases of digestive system] Episodic Other hematologic conditions (20 sources) Macrocytosis; Translations: [Other specified diseases of blood and blood-forming organs] Onset: 2 Chronic Other hematologic conditions (1 source) Other specified diseases of blood and blood-forming organs; Translations: [Macrocytosis] Onset: 2 Chronic Other injuries and conditions due to external causes (1 source) History of falling; Translations: [HISTORY OF FALLING] Onset: 3 Episodic Other injuries and conditions due to external causes (1 source) Systemic inflammatory response syndrome Onset: 3 Episodic Other injuries and conditions due to external causes (1 source) Systemic inflammatory response syndrome (SIRS) of non-infectious origin without acute organ dysfunction Episodic Other liver diseases (2 sources) Elevated liver enzymes level; Translations: [Abnormal levels of other serum enzymes] 08-13-2017 Episodic Other lower respiratory disease (1 source) Interstitial lung disease; Translations: [Interstitial pulmonary disease, unspecified] Chronic Other lower respiratory disease (1 source) Interstitial pulmonary disease, unspecified; Translations: [Interstitial pulmonary disease (HCC)] Onset: 3 Chronic Other lower respiratory disease (1 source) Unspecified abnormalities of breathing; Translations: [UNSPECIFIED ABNORMALITIES BREATHING] Onset: 3 Episodic Other lower respiratory disease (20 sources) Tachypnea; Translations: [Tachypnea, not elsewhere classified] Episodic Other lower respiratory disease (20 sources) Dyspnea on exertion; Translations: [Other forms of dyspnea] Episodic Other lower respiratory disease (13 sources) Dyspnea; Translations: [Other forms of dyspnea] Episodic Other lower respiratory disease (2 sources) Other forms of dyspnea; Translations: [Other forms of dyspnea] Episodic Other lower respiratory disease (1 source) Tachypnea, not elsewhere classified; Translations: [Tachypnea on examination] Episodic Other nervous system disorders (1 source) Other acute postprocedural pain; Translations: [Other acute postprocedural pain] Onset: 8 Episodic Other nutritional; endocrine; and metabolic disorders (20 sources) Body mass index 30+ - obesity; Translations: [Body mass index (BMI) 30.0-30.9, adult] Chronic Other nutritional; endocrine; and metabolic disorders (20 sources) Abnormal weight loss; Translations: [Abnormal weight loss] Onset: 8 03-26-2018 Episodic Other screening for suspected conditions (not mental disorders or infectious disease) (20 sources) Encounter for screening for malignant neoplasm of prostate; Translations: [Elevated liver enzymes level] Onset: 2 Episodic Residual codes; unclassified (20 sources) Body mass index 20-24 - normal; Translations: [Body Mass Index between 19-24, adult] Episodic Residual codes; unclassified (14 sources) Normal body mass index; Translations: [Body mass index (BMI) 20.0-20.9, adult] Episodic Screening and history of mental health and substance abuse codes (6 sources) Ex-smoker; Translations: [Personal history of tobacco use] Episodic Spondylosis; intervertebral disc disorders; other back problems (1 source) Other intervertebral disc degeneration, lumbosacral region; Translations: [OTH IV DISC DEGEN LUMBOSACRAL RGN] Onset: 2 Chronic Spondylosis; intervertebral disc disorders; other back problems (20 sources) Low back pain; Translations: [Lumbar pain] Episodic Unclassified (1 source) Other specified health status; Translations: [Other specified health status] Onset: 8 Episodic Unclassified (1 source) Pain, unspecified; Translations: [Pain, unspecified] Onset: 8 Unclassified (1 source) Unknown / UNK(Unknown) Onset: 8 Unclassified (1 source) Athscl heart disease of [place] coronary artery w/o ang pctrs / I25.10(ICD-9) Onset: 8 Unclassified (1 source) Pure hypercholesterolemia, unspecified / E78.00(ICD-9) Onset: 8 Unclassified (1 source) Old myocardial infarction / I25.2(ICD-9) Onset: 8 Unclassified (1 source) Family hx of ischem heart dis and oth dis of the circ sys / Z82.49(ICD-9) Onset: 8 Unclassified (2 sources) Encounter for preprocedural cardiovascular examination / Z01.810(ICD-9) Onset: 8 Unclassified (1 source) Coronary angioplasty status / Z98.61(ICD-9) Onset: 8 Unclassified (1 source) Personal history of nicotine dependence / Z87.891(ICD-9) Onset: 8 Unclassified (1 source) Unspecified abnormalities of gait and mobility / R26.9(ICD-9) Onset: 8 Unclassified (1 source) CONTACT W/AND (SUSP) EXPOS COVID-19; Translations: [CONTACT W/AND (SUSP) EXPOS COVID-19] Onset: 3 Unclassified (3 sources) LOW BACK PAIN, UNSPECIFIED; Translations: [LOW BACK PAIN, UNSPECIFIED] Onset: 2 Unclassified (18 sources) Onset: 8 Resolved: 3 Unclassified (1 source) Low back pain, unspecified; Translations: [Low back pain, unspecified] Past or Other Problems Problem Classification Problem Date Documented Da te Episodic/Chronic Biliary tract disease (14 sources) Disorder of gallbladder; Translations: [Other specified diseases of gallbladder] Onset: 02-04-2018 Episodic Coronary atherosclerosis and other heart disease (15 sources) Presence of coronary angioplasty implant and graft; Translations: [Post percutaneous transluminal coronary angioplasty] Onset: 02-04-2018 Episodic Deficiency and other anemia (2 sources) Iron deficiency anemia, unspecified; Translations: [Iron deficiency anemia, unspecified] Onset: 02-04-2018 Resolved: 01-16-2022 Episodic Deficiency and other anemia (1 source) Vitamin B12 deficiency anemia, unspecified; Translations: [Anemia due to vitamin B12 deficiency, unspecified B12 deficiency type] Onset: 08-08-2022 Episodic Immunizations and screening for infectious disease (1 source) Mantoux: negative Onset: 08-31-2017 Resolved: 01-21-2023 Episodic Other connective tissue disease (13 sources) Musculoskeletal symptom; Translations: [Other musculoskeletal symptoms referable to limbs] Onset: 10-05-2018 Episodic Other connective tissue disease (1 source) Other musculoskeletal symptoms referable to limbs; Translations: [Other musculoskeletal symptoms referable to limbs] Onset: 10-05-2018 Episodic Other gastrointestinal disorders (1 source) Other specified disorders of peritoneum; Translations: [Other specified disorders of peritoneum] Onset: 08-14-2017 Episodic Other gastrointestinal disorders (1 source) Diarrhea, unspecified Onset: 01-16-2022 Resolved: 01-16-2022 Episodic Other nervous system disorders (1 source) Walking disability Onset: 09-02-2017 Resolved: 01-20-2023 Chronic Other nutritional; endocrine; and metabolic disorders (1 source) Abnormal weight loss; Translations: [Abnormal weight loss] Onset: 03-26-2018 Episodic Unclassified (1 source) Encounter for preprocedural cardiovascular examination; Translations: [Encounter for preprocedural cardiovascular examination] Onset: 09-28-2017 Unclassified (1 source) LOW BACK PAIN, UNSPECIFIED; Translations: [LOW BACK PAIN, UNSPECIFIED] Onset: 05-12-2022 Unclassified (1 source) Lumbar pain M54.50 Unclassified (1 source) Lumbar pain; Translations: [Lumbar pain] Results Test Name Value Interpretation Reference Range Facility CNNURSEon 04-09-2023 CNNURSE Normal [facility] CBC W Auto Differential pane l (Bld)on 03-11-2023 Basophils (Bld) [#/Vol] 10*3/uL Normal <0.11 [facility] Comment on above: Order Comment: Speci men Type: BLOOD SPECIMENOrdering Facility: [facility] Address: [address] [place] [address] Performed By: #### 5 7021-8 ####[facility] LABCLIA [id number] [place] [address] Basophils/100 WBC (Bld) 0.2 % Normal [facility] Comment on above: Order Comment: Speci men Type: BLOOD SPECIMENOrdering Facility: [facility] Address: [address] [address] Performed By: #### 5 7021-8 ####[facility] LABCLIA [id number] [place] [address] Differential cell count method Nom (Bld) Auto Normal [facility] Comment on above: Order Comment: Speci men Type: BLOOD SPECIMENOrdering Facility: [facility] Address: [address] [place] [address] Performed By: #### 5 7021-8 ####[facility] LABCLIA [id number] [place] [address] Eosinophils (Bld) [#/Vol] 0.18 10*3/uL Normal <0.46 [facility] Comment on above: Order Comment: Speci men Type: BLOOD SPECIMENOrdering Facility: [facility] Address: [address] [address] Performed By: #### 5 7021-8 ####[facility] LABCLIA [id number] [place] [address] Eosinophils/100 WBC (Bld) 2.9 % Normal [facility] Comment on above: Order Comment: Speci men Type: BLOOD SPECIMENOrdering Facility: [facility] Address: [address] [place] [address] Performed By: #### 5 7021-8 ####[facility] LABCLIA [id number] [place] [address] Erythrocyte distribution width (RBC) [Ratio] 13.5 % Normal 11.5-15.0 [facility] Comment on above: Order Comment: Speci men Type: BLOOD SPECIMENOrdering Facility: [facility] Address: [address] [place] [address] Performed By: #### 5 7021-8 ####[facility] LABCLIA [id number] [place] [address] Hematocrit (Bld) [Volume fraction] 32.3 % Low 39.0-51.0 [facility] Comment on above: Order Comment: Speci men Type: BLOOD SPECIMENOrdering Facility: [facility] Address: [address] [place] [address] Performed By: #### 5 7021-8 ####[facility] LABCLIA [id number] [place] [address] Hemoglobin (Bld) [Mass/Vol] 10.3 g/dL Low 13.0-17.0 [facility] Comment on above: Order Comment: Speci men Type: BLOOD SPECIMENOrdering Facility: [facility] Address: [address] [place] [address] Performed By: #### 5 7021-8 ####[facility] LABCLIA [id number] [place] [address] Immature granulocytes (Bld) [#/Vol] 10*3/uL Normal <0.10 [facility] Comment on above: Order Comment: Speci men Type: BLOOD SPECIMENOrdering Facility: [facility] Address: [address] [place] [address] Performed By: #### 5 7021-8 ####[facility] LABCLIA [id number] [place] [address] Immature granulocytes/100 WBC (Bld) 0.3 % Normal [facility] Comment on above: Order Comment: Speci men Type: BLOOD SPECIMENOrdering Facility: [facility] Address: [address] [place] [address] Performed By: #### 5 7021-8 ####[facility] LABCLIA [id number] [place] [address] Lymphocytes (Bld) [#/Vol] 1.81 10*3/uL Normal 1.00-4.00 [facility] Comment on above: Order Comment: Speci men Type: BLOOD SPECIMENOrdering Facility: [facility] Address: [address] [place] [address] Performed By: #### 5 7021-8 ####[facility] LABCLIA [id number] [place] [address] Lymphocytes/100 WBC (Bld) 28.8 % Normal [facility] Comment on above: Order Comment: Speci men Type: BLOOD SPECIMENOrdering Facility: [facility] Address: [address] [place] [address] Performed By: #### 5 7021-8 ####[facility] LABIA [id number] [place] [address] MCH (RBC) [Entitic mass] 31.6 pg Normal 26.0-34.0 [facility] Comment on above: Order Comment: Speci men Type: BLOOD SPECIMENOrdering Facility: [facility] Address: [address] [place] [address] Performed By: #### 5 7021-8 ####[facility] LABCLIA [id number] [place] [address] MCHC (RBC) [Mass/Vol] 31.9 g/dL Normal 30.5-36.0 [facility] Comment on above: Order Comment: Speci men Type: BLOOD SPECIMENOrdering Facility: [facility] Address: [address] [place] [address] Performed By: #### 5 7021-8 ####[facility] LABIA [id number] [place] [address] MCV (RBC) [Entitic vol] 99.1 fL Normal 80.0-100.0 [facility] Comment on above: Order Comment: Speci men Type: BLOOD SPECIMENOrdering Facility: [facility] Address: [address] [address] Performed By: #### 5 7021-8 ####[facility] LABCLIA [id number] [place] [address] Monocytes (Bld) [#/Vol] 0.66 10*3/uL Normal <0.87 [facility] Comment on above: Order Comment: Speci men Type: BLOOD SPECIMENOrdering Facility: [facility] Address: [address] [address] Performed By: #### 5 7021-8 ####[facility] LABCLIA [id number] [place] [address] Monocytes/100 WBC (Bld) 10.5 % Normal [facility] Comment on above: Order Comment: Speci men Type: BLOOD SPECIMENOrdering Facility: [facility] Address: [address] [address] Performed By: #### 5 7021-8 ####[facility] LABCLIA [id number] [place] [address] Neutrophils (Bld) [#/Vol] 3.60 10*3/uL Normal 1.45-7.50 [facility] Comment on above: Order Comment: Speci men Type: BLOOD SPECIMENOrdering Facility: [facility] Address: [address] [address] Performed By: #### 5 7021-8 ####[facility] LABCLIA [id number] [place] [address] Neutrophils/100 WBC (Bld) 57.3 % Normal [facility] Comment on above: Order Comment: Speci men Type: BLOOD SPECIMENOrdering Facility: [facility] Address: [address] [address] Performed By: #### 5 7021-8 ####[facility] LABCLIA [id number] [place] [address] Nucleated RBC (Bld) [#/Vol] 10*3/uL Normal <0.01 [facility] Comment on above: Order Comment: Speci men Type: BLOOD SPECIMENOrdering Facility: [facility] Address: [address] [place] [address] Performed By: #### 5 7021-8 ####[facility] LABCLIA [id number] [place] [address] Nucleated RBC/100 WBC (Bld) [Ratio] 0.0 /100 WBC Normal [facility] Comment on above: Order Comment: Speci men Type: BLOOD SPECIMENOrdering Facility: [facility] Address: [address] [place] [address] Performed By: #### 5 7021-8 ####[facility] LABCLIA [id number] [place] [address] Platelet mean volume (Bld) [Entitic vol] 9.3 fL Normal 9.0-12.7 [facility] Comment on above: Order Comment: Speci men Type: BLOOD SPECIMENOrdering Facility: [facility] Address: [address] [place] [address] Performed By: #### 5 7021-8 ####[facility] LABCLIA [id number] [place] [address] Platelets (Bld) [#/Vol] 298 10*3/uL Normal 150-400 [facility] Comment on above: Order Comment: Speci men Type: BLOOD SPECIMENOrdering Facility: [facility] Address: [address] [place] [address] Performed By: #### 5 7021-8 ####[facility] LABCLIA [id number] [place] [address] RBC (Bld) [#/Vol] 3.26 10*6/uL Low 4.20-6.00 [facility] Comment on above: Order Comment: Speci men Type: BLOOD SPECIMENOrdering Facility: [facility] Address: [address] [place] [address] Performed By: #### 5 7021-8 ####[facility] LABCLIA [id number] [place] [address] WBC (Bld) [#/Vol] 6.28 10*3/uL Normal 3.70-11.00 [facility] Comment on above: Order Comment: Speci men Type: BLOOD SPECIMENOrdering Facility: [facility] Address: [address] [place] [address] Performed By: #### 5 7021-8 ####[facility] LABIA [id number] [place] [address] CNNURSEon 03-11-2023 CNNURSE Normal [facility] CNOVSPon 03-11-2023 CNOVSP Normal [facility] CNPNon 03-11-2023 CNPN Normal [facility] Comprehensive metabolic 2000 panelon 03-11-2023 Albumin [Mass/Vol] 3.5 g/dL Low 3.9-4.9 [facility] Comment on above: Order Comment: Speci men Type: BLOOD SPECIMENOrdering Facility: [facility] Address: [address] [place] [address] Performed By: #### 2 4323-8 ####[facility] LABCLIA [id number] [place] [address] ALP [Catalytic activity/Vol] 107 U/L Normal 38-113 [facility] Comment on above: Order Comment: Speci men Type: BLOOD SPECIMENOrdering Facility: [facility] Address: [address] [place] [address] Performed By: #### 2 4323-8 ####[facility] LABCLIA [id number] [place] [address] ALT [Catalytic activity/Vol] 17 U/L Normal 10-54 [facility] Comment on above: Order Comment: Speci men Type: BLOOD SPECIMENOrdering Facility: [facility] Address: [address] [place] [address] Performed By: #### 2 4323-8 ####[facility] LABCLIA [id number] [place] [address] Anion gap [Moles/Vol] 11 mmol/L Normal 9-18 [facility] Comment on above: Order Comment: Speci men Type: BLOOD SPECIMENOrdering Facility: [facility] Address: [address] [address] Performed By: #### 2 4323-8 ####[facility] LABCLIA [id number] [place] [address] AST [Catalytic activity/Vol] 18 U/L Normal 14-40 [facility] Comment on above: Order Comment: Speci men Type: BLOOD SPECIMENOrdering Facility: [facility] Address: [address] [place] [address] Performed By: #### 2 4323-8 ####[facility] LABCLIA [id number] [place] [address] Bilirubin [Mass/Vol] 0.3 mg/dL Normal 0.2-1.3 [facility] Comment on above: Order Comment: Speci men Type: BLOOD SPECIMENOrdering Facility: [facility] Address: [address] [place] [address] Performed By: #### 2 4323-8 ####[facility] LABCLIA [id number] [place] [address] Calcium [Mass/Vol] 9.3 mg/dL Normal 8.5-10.2 [facility] Comment on above: Order Comment: Speci men Type: BLOOD SPECIMENOrdering Facility: [facility] Address: [address] [place] [address] Performed By: #### 2 4323-8 ####[facility] LABCLIA [id number] [place] [address] Chloride [Moles/Vol] 106 mmol/L High 97-105 [facility] Comment on above: Order Comment: Speci men Type: BLOOD SPECIMENOrdering Facility: [facility] Address: [address] [place] [address] Performed By: #### 2 4323-8 ####[facility] LABCLIA [id number] [place] [address] CO2 [Moles/Vol] 22 mmol/L Normal 22-30 [facility] Comment on above: Order Comment: Speci men Type: BLOOD SPECIMENOrdering Facility: [facility] Address: [address] [place] [address] Performed By: #### 2 4323-8 ####[facility] LABCLIA [id number] [place] [address] Creatinine [Mass/Vol] 0.77 mg/dL Normal 0.73-1.22 [facility] Comment on above: Order Comment: Speci men Type: BLOOD SPECIMENOrdering Facility: [facility] Address: [address] [place] [address] Performed By: #### 2 4323-8 ####[facility] LABCLIA [id number] [place] [address] Creatinine and Glomerular filtration rate.predicted panel (S/P/Bld) 99 mL/min/1.73m??? Normal >=60 [facility] Comment on above: Order Comment: Speci men Type: BLOOD SPECIMENOrdering Facility: [facility] Address: [address] [place] [address] Result Comment: Megan mated Glomerular Filtration Rate (eGFR) is calculated using the 2020 CKD-EPI creatinine equation. This equation utilizes serum creatinine, sex, and age as parameters. The creatinine assay has traceable calibration to isotope dilution-mass spectrometry. Refer to KDIGO guidelines for clinical interpretation. In patients with unstable renal function, e.g. those with acute kidney injury, the eGFR may not accurately reflect actual GFR. Performed By: #### 2 4323-8 ####[facility] LABCLIA [id number] [place] [address] Glucose [Mass/Vol] 117 mg/dL High 74-99 [facility] Comment on above: Order Comment: Speci men Type: BLOOD SPECIMENOrdering Facility: [facility] Address: [address] [place] [address] Result Comment: The [place] [employer] (ADA) provides guidance for cutoff values for fasting glucose and random glucose. The ADA defines fasting as no caloric intake for at least 8 hours. Fasting plasma glucose results between 100 to 125 mg/dL indicate increased risk for diabetes (prediabetes).Fasting plasma glucose results greater than or equal to 126 mg/dL meet the criteria for diagnosis of diabetes. In the absence of unequivocal hyperglycemia, results should be confirmed by repeat testing. In a patient with classic symptoms of hyperglycemia or hyperglycemic crisis, random plasma glucose results greater than or equal to 200 mg/dL meet the criteria for diagnosis of diabetes.Reference: Standards of Medical Care in Diabetes 2016, [place] [employer]. Diabetes Care. 2016.39(Suppl 1). Performed By: #### 2 4323-8 ####[facility] LABCLIA [id number] [place] [address] Potassium [Moles/Vol] 4.2 mmol/L Normal 3.7-5.1 [facility] Comment on above: Order Comment: Speci men Type: BLOOD SPECIMENOrdering Facility: [facility] Address: [address] [place] [address] Performed By: #### 2 4323-8 ####[facility] LABCLIA [id number] [place] [address] Protein [Mass/Vol] 6.8 g/dL Normal 6.3-8.0 [facility] Comment on above: Order Comment: Speci men Type: BLOOD SPECIMENOrdering Facility: [facility] Address: [address] [place] [address] Performed By: #### 2 4323-8 ####[facility] LABCLIA [id number] [place] [address] Sodium [Moles/Vol] 139 mmol/L Normal 136-144 [facility] Comment on above: Order Comment: Speci men Type: BLOOD SPECIMENOrdering Facility: [facility] Address: [address] [place] [address] Performed By: #### 2 4323-8 ####[facility] LABCLIA [id number] [place] [address] Urea nitrogen [Mass/Vol] 22 mg/dL Normal 9-24 [facility] Comment on above: Order Comment: Speci men Type: BLOOD SPECIMENOrdering Facility: [facility] Address: [address] [place] [address] Performed By: #### 2 4323-8 ####[facility] LABIA [id number] [place] [address] [facility] Ferritin [Mass/Vol] 302.0 ng/mL Normal 30.3-565.7 [facility] Comment on above: Order Comment: Speci men Type: BLOOD SPECIMENOrdering Facility: [facility] Address: [address] [place] [address] Performed By: #### 5 0190-8, 2132-02, 4 ####[facility] LABCLIA [id number] [place] [address] [place] Iron and Iron binding capaci ty panelon 03-11-2023 Iron [Mass/Vol] 37 ug/dL Low 41-186 [facility] Comment on above: Order Comment: Speci men Type: BLOOD SPECIMENOrdering Facility: [facility] Address: [address] [place] [address] Performed By: #### 5 0190-8, 9, 2275-4 ####[facility] LABCLIA [id number] [id number] [address] [place] Iron binding capacity [Mass/Vol] Normal [facility] Comment on above: Order Comment: Speci men Type: BLOOD SPECIMENOrdering Facility: [facility] Address: [address] [place], [place] [address] Result Comment: Unab le to calculate due to hemolysis. Performed By: #### 5 0190-8, 9, 2275-09 ####[facility] LABCLIA [id number] [place] [address] [place] Iron/TIBC [Molar ratio] Normal [facility] Comment on above: Order Comment: Speci men Type: BLOOD SPECIMENOrdering Facility: [facility] Address: [address] [place], [place] [address] Result Comment: Unab le to calculate due to hemolysis. Performed By: #### 5 0190-8, 2132-02, 2275-09 ####[facility] LABIA [id number] [place] [address] [place] NM PET/CT SKULL-THIGH INITon 03-11-2023 NM PET/CT SKULL-THIGH INIT Normal [facility] Vit B12 SerPl-ncon 023 Cobalamin (Vitamin B12) [Mass/Vol] 758 pg/mL Normal 232-1245 [facility] Comment on above: Order Comment: Speci men Type: BLOOD SPECIMENOrdering Facility: [facility] Address: [address] [place], [place] [address] Performed By: #### 5 0190-8, 2132-02, 2275-09 ####[facility] LABCLIA [id number] [place] [address] [place] CNPNon 03-05-2023 CNPN Normal [facility] CBC W Auto Differential pane l (Bld)on 02-19-2023 Basophils (Bld) [#/Vol] 10*3/uL Normal <0.11 [facility] Comment on above: Order Comment: Speci men Type: BLOOD SPECIMENOrdering Facility: [facility] Address: [address] [address] Performed By: #### 5 7021-8 ####[facility] LABCLIA [id number] [place] [address] Basophils/100 WBC (Bld) 0.4 % Normal [facility] Comment on above: Order Comment: Speci men Type: BLOOD SPECIMENOrdering Facility: [facility] Address: [address] [place] [address] Performed By: #### 5 7021-8 ####[facility] LABCLIA [id number] [place] [address] Differential cell count method Nom (Bld) Auto Normal [facility] Comment on above: Order Comment: Speci men Type: BLOOD SPECIMENOrdering Facility: [facility] Address: [address] [place] [address] Performed By: #### 5 7021-8 ####[facility] LABCLIA [id number] [place] [address] Eosinophils (Bld) [#/Vol] 0.15 10*3/uL Normal <0.46 [facility] Comment on above: Order Comment: Speci men Type: BLOOD SPECIMENOrdering Facility: [facility] Address: [address] [place] [address] Performed By: #### 5 7021-8 ####[facility] LABCLIA [id number] [place] [address] Eosinophils/100 WBC (Bld) 3.2 % Normal [facility] Comment on above: Order Comment: Speci men Type: BLOOD SPECIMENOrdering Facility: [facility] Address: [address] [place] [address] Performed By: #### 5 7021-8 ####[facility] LABCLIA [id number] [place] [address] Erythrocyte distribution width (RBC) [Ratio] 13.3 % Normal 11.5-15.0 [facility] Comment on above: Order Comment: Speci men Type: BLOOD SPECIMENOrdering Facility: [facility] Address: [address] [place] [address] Performed By: #### 5 7021-8 ####[facility] LABCLIA [id number] [place] [address] Hematocrit (Bld) [Volume fraction] 30.7 % Low 39.0-51.0 [facility] Comment on above: Order Comment: Speci men Type: BLOOD SPECIMENOrdering Facility: [facility] Address: [address] [place] [address] Performed By: #### 5 7021-8 ####[facility] LABCLIA [id number] [place] [address] Hemoglobin (Bld) [Mass/Vol] 9.8 g/dL Low 13.0-17.0 [facility] Comment on above: Order Comment: Speci men Type: BLOOD SPECIMENOrdering Facility: [facility] Address: [address] [place] [address] Performed By: #### 5 7021-8 ####[facility] LABCLIA [id number] [place] [address] Immature granulocytes (Bld) [#/Vol] 10*3/uL Normal <0.10 [facility] Comment on above: Order Comment: Speci men Type: BLOOD SPECIMENOrdering Facility: [facility] Address: [address] [place] [address] Performed By: #### 5 7021-8 ####[facility] LABCLIA [id number] [place] [address] Immature granulocytes/100 WBC (Bld) 0.2 % Normal [facility] Comment on above: Order Comment: Speci men Type: BLOOD SPECIMENOrdering Facility: [facility] Address: [address] [place] [address] Performed By: #### 5 7021-8 ####[facility] LABCLIA [id number] [place] [address] Lymphocytes (Bld) [#/Vol] 1.19 10*3/uL Normal 1.00-4.00 [facility] Comment on above: Order Comment: Speci men Type: BLOOD SPECIMENOrdering Facility: [facility] Address: [address] [place] [address] Performed By: #### 5 7021-8 ####[facility] LABCLIA [id number] [place] [address] Lymphocytes/100 WBC (Bld) 25.4 % Normal [facility] Comment on above: Order Comment: Speci men Type: BLOOD SPECIMENOrdering Facility: [facility] Address: [address] [place] [address] Performed By: #### 5 7021-8 ####[facility] LABIA [id number] [place] [address] MCH (RBC) [Entitic mass] 31.6 pg Normal 26.0-34.0 [facility] Comment on above: Order Comment: Speci men Type: BLOOD SPECIMENOrdering Facility: [facility] Address: [address] [place] [address] Performed By: #### 5 7021-8 ####[facility] LABCLIA [id number] [place] [address] MCHC (RBC) [Mass/Vol] 31.9 g/dL Normal 30.5-36.0 [facility] Comment on above: Order Comment: Speci men Type: BLOOD SPECIMENOrdering Facility: [facility] Address: [address] [place] [address] Performed By: #### 5 7021-8 ####[facility] LABIA [id number] [place] [address] MCV (RBC) [Entitic vol] 99.0 fL Normal 80.0-100.0 [facility] Comment on above: Order Comment: Speci men Type: BLOOD SPECIMENOrdering Facility: [facility] Address: [address] [address] Performed By: #### 5 7021-8 ####[facility] LABCLIA [id number] [place] [address] Monocytes (Bld) [#/Vol] 0.37 10*3/uL Normal <0.87 [facility] Comment on above: Order Comment: Speci men Type: BLOOD SPECIMENOrdering Facility: [facility] Address: [address] [place] [address] Performed By: #### 5 7021-8 ####[facility] LABCLIA [id number] [place] [address] Monocytes/100 WBC (Bld) 7.9 % Normal [facility] Comment on above: Order Comment: Speci men Type: BLOOD SPECIMENOrdering Facility: [facility] Address: [address] [place] [address] Performed By: #### 5 7021-8 ####[facility] LABCLIA [id number] [place] [address] Neutrophils (Bld) [#/Vol] 2.94 10*3/uL Normal 1.45-7.50 [facility] Comment on above: Order Comment: Speci men Type: BLOOD SPECIMENOrdering Facility: [facility] Address: [address] [place] [address] Performed By: #### 5 7021-8 ####[facility] LABCLIA [id number] [place] [address] Neutrophils/100 WBC (Bld) 62.9 % Normal [facility] Comment on above: Order Comment: Speci men Type: BLOOD SPECIMENOrdering Facility: [facility] Address: [address] [place] [address] Performed By: #### 5 7021-8 ####[facility] LABCLIA [id number] [place] [address] Nucleated RBC (Bld) [#/Vol] 10*3/uL Normal <0.01 [facility] Comment on above: Order Comment: Speci men Type: BLOOD SPECIMENOrdering Facility: [facility] Address: [address] [place] [address] Performed By: #### 5 7021-8 ####[facility] LABCLIA [id number] [place] [address] Nucleated RBC/100 WBC (Bld) [Ratio] 0.0 /100 WBC Normal [facility] Comment on above: Order Comment: Speci men Type: BLOOD SPECIMENOrdering Facility: [facility] Address: [address] [place] [address] Performed By: #### 5 7021-8 ####[facility] LABCLIA [id number] [place] [address] Platelet mean volume (Bld) [Entitic vol] 8.9 fL Low 9.0-12.7 [facility] Comment on above: Order Comment: Speci men Type: BLOOD SPECIMENOrdering Facility: [facility] Address: [address] [place] [address] Performed By: #### 5 7021-8 ####[facility] LABCLIA [id number] [place] [address] Platelets (Bld) [#/Vol] 266 10*3/uL Normal 150-400 [facility] Comment on above: Order Comment: Speci men Type: BLOOD SPECIMENOrdering Facility: [facility] Address: [address] [place] [address] Performed By: #### 5 7021-8 ####[facility] LABIA [id number] [place] [address] RBC (Bld) [#/Vol] 3.10 10*6/uL Low 4.20-6.00 [facility] Comment on above: Order Comment: Speci men Type: BLOOD SPECIMENOrdering Facility: [facility] Address: [address] [address] Performed By: #### 5 7021-8 ####[facility] LABIA [id number] [place] [address] WBC (Bld) [#/Vol] 4.68 10*3/uL Normal 3.70-11.00 [facility] Comment on above: Order Comment: Speci men Type: BLOOD SPECIMENOrdering Facility: [facility] Address: [address] [address] Performed By: #### 5 7021-8 ####[facility] LABIA [id number] [place] [address] CNNURSEon 02-19-2023 CNNURSE Normal [facility] CNOVSPon 02-19-2023 CNOVSP Normal [facility] Comprehensive metabolic 2000 panelon 02-19-2023 Albumin [Mass/Vol] 3.8 g/dL Low 3.9-4.9 [facility] Comment on above: Order Comment: Speci men Type: BLOOD SPECIMENOrdering Facility: [facility] Address: [address] [address] Performed By: #### 2 4323-8 ####[facility] LABIA [id number] [place] [address] ALP [Catalytic activity/Vol] 112 U/L Normal 38-113 [facility] Comment on above: Order Comment: Speci men Type: BLOOD SPECIMENOrdering Facility: [facility] Address: [address] [address] Performed By: #### 2 4323-8 ####[facility] LABIA [id number] [place] [address] ALT [Catalytic activity/Vol] 17 U/L Normal 10-54 [facility] Comment on above: Order Comment: Speci men Type: BLOOD SPECIMENOrdering Facility: [facility] Address: [address] [address] Performed By: #### 2 4323-8 ####[facility] LABCLIA [id number] [place] [address] Anion gap [Moles/Vol] 11 mmol/L Normal 9-18 [facility] Comment on above: Order Comment: Speci men Type: BLOOD SPECIMENOrdering Facility: [facility] Address: [address] [place] [address] Performed By: #### 2 4323-8 ####[facility] LABCLIA [id number] [place] [address] AST [Catalytic activity/Vol] 16 U/L Normal 14-40 [facility] Comment on above: Order Comment: Speci men Type: BLOOD SPECIMENOrdering Facility: [facility] Address: [address] [place] [address] Performed By: #### 2 4323-8 ####[facility] LABCLIA [id number] [place] [address] Bilirubin [Mass/Vol] 0.2 mg/dL Normal 0.2-1.3 [facility] Comment on above: Order Comment: Speci men Type: BLOOD SPECIMENOrdering Facility: [facility] Address: [address] [place] [address] Performed By: #### 2 4323-8 ####[facility] LABCLIA [id number] [place] [address] Calcium [Mass/Vol] 9.6 mg/dL Normal 8.5-10.2 [facility] Comment on above: Order Comment: Speci men Type: BLOOD SPECIMENOrdering Facility: [facility] Address: [address] [place] [address] Performed By: #### 2 4323-8 ####[facility] LABCLIA [id number] [place] [address] Chloride [Moles/Vol] 106 mmol/L High 97-105 [facility] Comment on above: Order Comment: Speci men Type: BLOOD SPECIMENOrdering Facility: [facility] Address: [address] [address] Performed By: #### 2 4323-8 ####[facility] LABCLIA [id number] [place] [address] CO2 [Moles/Vol] 20 mmol/L Low 22-30 [facility] Comment on above: Order Comment: Speci men Type: BLOOD SPECIMENOrdering Facility: [facility] Address: [address] [address] Performed By: #### 2 4323-8 ####[facility] LABCLIA [id number] [place] [address] Creatinine [Mass/Vol] 0.72 mg/dL Low 0.73-1.22 [facility] Comment on above: Order Comment: Speci men Type: BLOOD SPECIMENOrdering Facility: [facility] Address: [address] [place] [address] Performed By: #### 2 4323-8 ####[facility] LABCLIA [id number] [place] [address] Creatinine and Glomerular filtration rate.predicted panel (S/P/Bld) 101 mL/min/1.73m??? Normal >=60 [facility] Comment on above: Order Comment: Speci men Type: BLOOD SPECIMENOrdering Facility: [facility] Address: [address] [place] [address] Result Comment: Megan mated Glomerular Filtration Rate (eGFR) is calculated using the 2020 CKD-EPI creatinine equation. This equation utilizes serum creatinine, sex, and age as parameters. The creatinine assay has traceable calibration to isotope dilution-mass spectrometry. Refer to KDIGO guidelines for clinical interpretation. In patients with unstable renal function, e.g. those with acute kidney injury, the eGFR may not accurately reflect actual GFR. Performed By: #### 2 4323-8 ####[facility] LABCLIA [id number] [place] [address] Glucose [Mass/Vol] 165 mg/dL High 74-99 [facility] Comment on above: Order Comment: Speci men Type: BLOOD SPECIMENOrdering Facility: [facility] Address: [address] [place] [address] Result Comment: The [place] [employer] (ADA) provides guidance for cutoff values for fasting glucose and random glucose. The ADA defines fasting as no caloric intake for at least 8 hours. Fasting plasma glucose results between 100 to 125 mg/dL indicate increased risk for diabetes (prediabetes).Fasting plasma glucose results greater than or equal to 126 mg/dL meet the criteria for diagnosis of diabetes. In the absence of unequivocal hyperglycemia, results should be confirmed by repeat testing. In a patient with classic symptoms of hyperglycemia or hyperglycemic crisis, random plasma glucose results greater than or equal to 200 mg/dL meet the criteria for diagnosis of diabetes.Reference: Standards of Medical Care in Diabetes 2016, [place] [employer]. Diabetes Care. 2016.39(Suppl 1). Performed By: #### 2 4323-8 ####[facility] LABCLIA [id number] [place] [address] Potassium [Moles/Vol] 4.2 mmol/L Normal 3.7-5.1 [facility] Comment on above: Order Comment: Speci men Type: BLOOD SPECIMENOrdering Facility: [facility] Address: [address] [place] [address] Performed By: #### 2 4323-8 ####[facility] LABCLIA [id number] [place] [address] Protein [Mass/Vol] 7.0 g/dL Normal 6.3-8.0 [facility] Comment on above: Order Comment: Speci men Type: BLOOD SPECIMENOrdering Facility: [facility] [facility] Address: [address] [place] [address] Performed By: #### 2 4323-8 ####[facility] LABCLIA [id number] [place] [address] Sodium [Moles/Vol] 137 mmol/L Normal 136-144 [facility] Comment on above: Order Comment: Speci men Type: BLOOD SPECIMENOrdering Facility: [facility] Address: [address] [address] Performed By: #### 2 4323-8 ####[facility] LABCLIA [id number] [place] [address] Urea nitrogen [Mass/Vol] 22 mg/dL Normal 9-24 [facility] Comment on above: Order Comment: Speci men Type: BLOOD SPECIMENOrdering Facility: [facility] Address: [address] [place] [address] Performed By: #### 2 4323-8 ####[facility] LABCLIA [id number] [place] [address] Ferritin SerPl-mCncon 2022 Ferritin [Mass/Vol] 247.0 ng/mL Normal 30.3-565.7 [facility] Comment on above: Order Comment: Speci men Type: BLOOD SPECIMENOrdering Facility: [facility] Address: [address] [place] [address] Performed By: #### 5 0190-8, 9, 2275-, 8 ####[facility] LABCLIA [id number] [place] [address] [place] Folate SerPl-mCncon 02-20-20 23 Folate [Mass/Vol] ng/mL Normal >4.7 [facility] Comment on above: Order Comment: [facility]ers children[facility] Type: BLOOD SPECIMENOrdering Facility: [facility] Address: [address] [place] [address] Result Comment: A re sult of > 20 ng/mL is not necessarily indicative of a pathologic or treatable condition: it reflects a limitation of the test methodology.Assay reference range: 4.8 to 24.2 ng/mL. Suitable for detection of folate deficiency.Reference:Folate III (Folate III) [package insert V 1.0 Italian]. [facility], [place], [place]: April 2015. Performed By: #### 5 01908, 2132-02, 2275-09, 2284-01 ####[facility] LABIA [id number] [address] [id number] [place] Iron and Iron binding capaci ty panelon 02-19-2023 Iron [Mass/Vol] 30 ug/dL Low 41-186 [facility] Comment on above: Order Comment: Speci men Type: BLOOD SPECIMENOrdering Facility: [facility] Address: [address] [place] [address] Performed By: #### 5 0190-8, 9, 2275-09, 2284-01 ####[facility] [id number] [place] [address] [place] Iron binding capacity [Mass/Vol] 208 ug/dL Low 232-386 [facility] Comment on above: Order Comment: Speci men Type: BLOOD SPECIMENOrdering Facility: [facility] Address: [address] [place] [address] Performed By: #### 5 0190-8, 9, 2275-09, 2284-01 ####[facility] [id number] [place] [address] [place] Iron/TIBC [Molar ratio] 14.4 % Low 15.0-57.0 [facility] Comment on above: Order Comment: Speci men Type: BLOOD SPECIMENOrdering Facility: [facility] Address: [address] [place] [address] Performed By: #### 5 0190-8, 9, 2275-09, 2284-01 ####[facility] [id number] [place] [id number] [place] Vit B12 SerPl-mCncon 023 Cobalamin (Vitamin B12) [Mass/Vol] 636 pg/mL Normal 232-1245 [facility] Comment on above: Order Comment: Speci men Type: BLOOD SPECIMENOrdering Facility: [facility] Address: [address] [place], [place] [address] [address] Performed By: #### 5 0190-8, 2132-9, 2276-4, 2284-8 ####[facility] LABCLIA [id number] [facility]ENTERAditi EDGECOMBLASHELL [id number] [address] [place] CNPNon 02-17-2023 CNPN Normal [facility] Albumin Levelon 02-10-2023 Albumin [Mass/Vol] 3.4 g/dL Low 3.5-5.7 [facility] Comment on above: Order Comment: Diagn osis: E11.9, I10, E46, D64.9 Comment: [id number] Gonzalez RM112, TORY, 02/06/23 Result Comment: PERF ORMED BY: [address] [place] [address] PATHOLOGIST PRICING COORDINATOR ESTIVEN GENTILE M.D. Performed By: #### A VIPIN HIGGINBOTHAM, CBC #### [facility] [address] [place] [address] [place] Albumin [Mass/volume] in Ser um or Plasma by Bromocresol green (BCG) dye binding methoOrdered By: Adriane Espitia on 02-10-2023 Albumin BCG dye [Mass/Vol] 3.4 g/dL 3.5-5.7 [facility] Basic Metabolic Panelon 01-27 Anion gap [Moles/Vol] 11.5 mmol/L Normal 6.0-15.0 [facility] Comment on above: Order Comment: Diagn osis: E11.9, I10, E46, D64.9 Comment: [id number] Gonzalez, RMRobinson, HM, 02/06/23 Performed By: #### A VIPIN HIGGINBOTHAM, CBC #### [facility] [address] [place] [address] [place] Calcium [Mass/Vol] 8.8 mg/dL Normal 8.6-10.3 [facility] Comment on above: Order Comment: Diagn osis: E11.9, I10, E46, D64.9 Comment: [id number], OGONTZ, RM112, HM, 02/06/23 Performed By: #### A LB, BMP, CBC #### [facility] [address] [place] [address] [place] Chloride [Moles/Vol] 103 mmol/L Normal 98-107 [facility] Comment on above: Order Comment: Diagn osis: E11.9, I10, E46, D64.9 Comment: [id number], OGONTZ, RM112, HM, 02/06/23 Performed By: #### A LB, BMP, CBC #### [facility] [address] [place] [address] [facility] CO2 [Moles/Vol] 25.2 mmol/L Normal 21.0-31.0 [facility] Comment on above: Order Comment: Diagn osis: E11.9, I10, E46, D64.9 Comment: [id number], OGONTZ, RM112, HM, 02/06/23 Performed By: #### A LB, BMP, CBC #### [facility] [address] [phone] [facility] Creatinine [Mass/Vol] 0.65 mg/dL Low 0.70-1.30 [facility] Comment on above: Order Comment: Diagn osis: E11.9, I10, E46, D64.9 Comment: [id number], OGONTZ, RM112, HM, 02/06/23 Performed By: #### A LB, BMP, CBC #### [facility] [address] [phone] [place] GFR/1.73 sq M.predicted MDRD (S/P/Bld) [Vol rate/Area] mL/min/{1.73_m2} Normal [facility] Comment on above: Order Comment: Diagn osis: E11.9, I10, E46, D64.9 Comment: [id number], OGONTZ, RM112, HM, 02/06/23 Performed By: #### A LB, BMP, CBC #### [facility] [address] [place] [address] [place] Glucose [Mass/Vol] 102 mg/dL High 70-100 [facility] Comment on above: Order Comment: Diagn osis: E11.9, I10, E46, D64.9 Comment: [id number], OGNICOLAS, RM112, HM, 02/06/23 Result Comment: [place] Glucose Reference Range is dependent on time and content of last meal. Glucose of more than 200 mg/dL in a nonstressed, ambulatory subject supports the diagnosis of Diabetes Mellitus. ADA recommended reference range Performed By: #### A LB BMP, CBC #### [facility] [address] Potassium [Moles/Vol] 4.7 mmol/L Normal 3.5-5.1 [facility] Comment on above: Order Comment: Diagn osis: E11.9, I10, E46, D64.9 Comment: [id number], DECLAN, RM112, , 02/06/23 Performed By: #### A ANAHY BMP, CBC #### [address] Sodium [Moles/Vol] 135 mmol/L Low 136-145 [facility] Comment on above: Order Comment: Diagn osis: E11.9, I10, E46, D64.9 Comment: [id number], DECLAN, RM112, , 02/06/23 Performed By: #### A ANAHY BMP, CBC #### [address] Urea nitrogen [Mass/Vol] 19 mg/dL Normal 7-25 [facility] Comment on above: Order Comment: Diagn osis: E11.9, I10, E46, D64.9 Comment: [id number], OGMIKHAILZ, RM112, HM, 02/06/23 Performed By: #### A LB, BMP, CBC #### [facility] [address] [phone] [place] Basophils Auto (Bld) [#/Vol] Ordered By: Adriane Espitia on 02-10-2023 Basophils (Bld) [#/Vol] 0.0 10*3/uL 0.0-0.2 [facility] Basophils/100 WBC Auto (Bld) Ordered By: Adriane Espitia on 02-10-2023 Basophils/100 WBC (Bld) 0.4 % . [facility] Calcium [Mass/volume] in Ser um or PlasmaOrdered By: Adriane Espitia on 02-10-2023 Calcium [Mass/Vol] 8.8 mg/dL 8.6-10.3 [facility] Carbon dioxide, total [Moles /volume] in Serum or PlasmaOrdered By: Adriane Espitia on 02-10-2023 CO2 [Moles/Vol] 25.2 mmol/L 21.0-31.0 [facility] Chloride [Moles/volume] in S brandi or PlasmaOrdered By: Adriane Espitia on 02-10-2023 Chloride [Moles/Vol] 103 mmol/L 98-107 [facility] Complete Blood Count Auto Di ffon 02-10-2023 Basophils (Bld) [#/Vol] 0.0 10*3/uL Normal 0.0-0.2 [facility] Comment on above: Order Comment: Diagn osis: E11.9, I10, E46, D64.9 Comment: [id number], DECLAN, RM112, HM, 02/06/23 Result Comment: PERF ORMED BY: [place] [address] PATHOLOGIST PRICING COORDINATOR ESTIVEN GENTILE M.D. Performed By: #### A LB, BMP, CBC #### [facility] [address] [place] [address] Basophils/100 WBC (Bld) 0.4 % Normal . [facility] Comment on above: Order Comment: Diagn osis: E11.9, I10, E46, D64.9 Comment: [id number], DECLAN, RM112, HM, 02/06/23 Performed By: #### A LB, BMP, CBC #### [facility] [address] [place] [address] Eosinophils (Bld) [#/Vol] 0.1 10*3/uL Normal 0.0-0.45 [facility] Comment on above: Order Comment: Diagn osis: E11.9, I10, E46, D64.9 Comment: [id number], DECLAN, RM112, HM, 02/06/23 Performed By: #### A LB, BMP, CBC #### [facility] [address] Eosinophils/100 WBC (Bld) 3.1 % Normal . [facility] Comment on above: Order Comment: Diagn osis: E11.9, I10, E46, D64.9 Comment: [id number], OGONTZ, RM112, HM, 02/06/23 Performed By: #### A LB, BMP, CBC #### [address] Erythrocyte distribution width (RBC) [Ratio] 14.4 % Normal 12.0-14.8 [facility] Comment on above: Order Comment: Diagn osis: E11.9, I10, E46, D64.9 Comment: [id number], OGONTZ, RM112, , 02/06/23 Performed By: #### A LB, BMP, CBC #### [address] Hematocrit (Bld) [Volume fraction] 30.9 % Low 38.8-50.0 [facility] Comment on above: Order Comment: Diagn osis: E11.9, I10, E46, D64.9 Comment: [id number], OGONTZ, RM112, HM, 02/06/23 Performed By: #### A LB, BMP, CBC #### [facility] [address] [place] [address] Hemoglobin (Bld) [Mass/Vol] 10.3 g/dL Low 13.0-17.0 [facility] Comment on above: Order Comment: Diagn osis: E11.9, I10, E46, D64.9 Comment: [id number], OGONTZ, RM112, HM, 02/06/23 Performed By: #### A LB, BMP, CBC #### [address] Lymphocytes (Bld) [#/Vol] 1.3 10*3/uL Normal 1.00-4.8 [facility] Comment on above: Order Comment: Diagn osis: E11.9, I10, E46, D64.9 Comment: [id number], OGONTZ, RM112, , 02/06/23 Performed By: #### A LB, BMP, CBC #### [address] Lymphocytes/100 WBC (Bld) 28.3 % Normal . [facility] Comment on above: Order Comment: Diagn osis: E11.9, I10, E46, D64. Comment: [id number], OGONTZ, RM112, , 02/06/23 Performed By: #### A LB, BMP, CBC #### [address] MCH (RBC) [Entitic mass] 32.0 pg Normal 27.5-35.2 [facility] Comment on above: Order Comment: Diagn osis: E11.9, I10, E46, D64. Comment: [id number], OGONTZ, RM112, , 02/06/23 Performed By: #### A LB, BMP, CBC #### [address] MCV (RBC) [Entitic vol] 96.3 fL Normal 83.5-101 [facility] Comment on above: Order Comment: Diagn osis: E11.9, I10, E46, D64. Comment: [id number], OGMIKHAILZ, RM112, , 02/06/23 Performed By: #### A LB, BMP, CBC #### [address] Mean Corpuscular HGB Conc 33.3 g/dL Normal 32.5-35.6 [facility] Comment on above: Order Comment: Diagn osis: E11.9, I10, E46, D6. Comment: [id number], OGONTZ, RM112, , 02/06/23 Performed By: #### A LB, BMP, CBC #### [address] Monocytes (Bld) [#/Vol] 0.5 10*3/uL Normal 0.0-0.8 [facility] Comment on above: Order Comment: Diagn osis: E11.9, I10, E46, D64.9 Comment: [id number], OGONTZ, RM112, HM, 02/06/23 Performed By: #### A LB, BMP, CBC #### [facility] [address] [place] [address] [place] Monocytes/100 WBC (Bld) 10.1 % Normal . [facility] Comment on above: Order Comment: Diagn osis: E11.9, I10, E46, D64.9 Comment: [id number], OGONTZ, RM112, HM, 02/06/23 Performed By: #### A LB, BMP, CBC #### [facility] [address] [place] [phone] [place] Neutrophils (Bld) [#/Vol] 2.7 10*3/uL Normal 1.8-7.7 [facility] Comment on above: Order Comment: Diagn osis: E11.9, I10, E46, D64.9 Comment: [id number], OGONTZ, RM112, HM, 02/06/23 Performed By: #### A LB, BMP, CBC #### [facility] [address] [phone] [place] Neutrophils/100 WBC (Bld) 58.1 % Normal . [facility] Comment on above: Order Comment: Diagn osis: E11.9, I10, E46, D64.9 Comment: [id number], OGONTZ, RM112, HM, 02/06/23 Performed By: #### A LB, BMP, CBC #### [facility] [address] [place] [address] [place] NRBC% 0.0 /100{WBC} Normal 0-0.5 [facility] Comment on above: Order Comment: Diagn osis: E11.9, I10, E46, D64.9 Comment: [id number], OGONTZ, RM112, HM, 02/06/23 Performed By: #### A LB, BMP, CBC #### [facility] [address] [place] [phone] [place] Platelet mean volume (Bld) [Entitic vol] 7.6 fL Normal 6.6-10.1 [facility] Comment on above: Order Comment: Diagn osis: E11.9, I10, E46, D64.9 Comment: [id number], OGONTZ, RM112, HM, 02/06/23 Performed By: #### A LB, BMP, CBC #### [facility] [address] Platelets (Bld) [#/Vol] 281 10*3/uL Normal 150-450 [facility] Comment on above: Order Comment: Diagn osis: E11.9, I10, E46, D64.9 Comment: [id number], OGONTZ, RM112, , 02/06/23 Performed By: #### A LB, BMP, CBC #### [facility] [address] [place] [address] RBC (Bld) [#/Vol] 3.21 10*6/uL Low 3.90-5.60 [facility] Comment on above: Order Comment: Diagn osis: E11.9, I10, E46, D64.9 Comment: [id number], OGONTZ, RM112, , 02/06/23 Performed By: #### A LB, BMP, CBC #### [facility] [address] [place] [address] WBC (Bld) [#/Vol] 4.7 10*3/uL Normal 4.1-10.5 [facility] Comment on above: Order Comment: Diagn osis: E11.9, I10, E46, D64.9 Comment: [id number], OGONTZ, RM112, HM, 02/06/23 Performed By: #### A LB, BMP, CBC #### [facility] [address] [place] [address] Creatinine [Mass/volume] in Serum or PlasmaOrdered By: Adriane Espitia on 02-10-2023 Creatinine [Mass/Vol] 0.65 mg/dL 0.70-1.30 [facility] Eosinophils Auto (Bld) [#/Vo l]Ordered By: Adriane Espitia on 02-10-2023 Eosinophils (Bld) [#/Vol] 0.1 10*3/uL 0.0-0.45 [facility] Eosinophils/100 WBC Auto (Bl d)Ordered By: Adriane Espitia on 02-10-2023 Eosinophils/100 WBC (Bld) 3.1 % . [facility] Erythrocyte distribution wid th Auto (RBC) [Ratio]Ordered By: Adriane Espitia on 02-10-2023 Erythrocyte distribution width (RBC) [Ratio] 14.4 % 12.0-14.8 [facility] Glucose [Mass/volume] in Ser um or PlasmaOrdered By: Adriane Espitia on 02-10-2023 Glucose [Mass/Vol] 102 mg/dL 70-100 [facility] Comment on above: ADA recommended refe rence rangeRandom Glucose Reference Range is dependent on time and content of last meal. Glucose of more than 200 mg/dL in a nonstressed, ambulatory subject supports the diagnosis of Diabetes Mellitus. Hematocrit Auto (Bld) [Volum e fraction]Ordered By: Adriane Espitia on 02-10-2023 Hematocrit (Bld) [Volume fraction] 30.9 % 38.8-50.0 [facility] Hemoglobin [Mass/volume] in BloodOrdered By: Adriane Espitia on 02-10-2023 Hemoglobin (Bld) [Mass/Vol] 10.3 g/dL 13.0-17.0 [facility] Leukocytes [#/volume] correc missael for nucleated erythrocytes in Blood by Automated counOrdered By: Adriane Espitia on 02-10-2023 WBC corrected for nucl RBC Auto (Bld) [#/Vol] 4.7 10*3/uL 4.1-10.5 [facility] Lymphocytes Auto (Bld) [#/Vo l]Ordered By: Adriane Espitia on 02-10-2023 Lymphocytes (Bld) [#/Vol] 1.3 10*3/uL 1.00-4.8 [facility] Lymphocytes/100 WBC Auto (Bl d)Ordered By: Adriane Espitia on 02-10-2023 Lymphocytes/100 WBC (Bld) 28.3 % . [facility] MCH Auto (RBC) [Entitic mass ]Ordered By: Adriane Espitia on 02-10-2023 MCH (RBC) [Entitic mass] 32.0 pg 27.5-35.2 [facility] MCHC Auto (RBC) [Mass/Vol]Or dered By: Adriane Espitia on 02-10-2023 MCHC (RBC) [Mass/Vol] 33.3 g/dL 32.5-35.6 [facility] MCV Auto (RBC) [Entitic vol] Ordered By: Adriane Espitia on 02-10-2023 MCV (RBC) [Entitic vol] 96.3 fL 83.5-101 [facility] Monocytes Auto (Bld) [#/Vol] Ordered By: Adriane Espitia on 02-10-2023 Monocytes (Bld) [#/Vol] 0.5 10*3/uL 0.0-0.8 [facility] Monocytes/100 WBC Auto (Bld) Ordered By: Adriane Espitia on 02-10-2023 Monocytes/100 WBC (Bld) 10.1 % . [facility] Neutrophils Auto (Bld) [#/Vo l]Ordered By: Adriane Espitia on 02-10-2023 Neutrophils (Bld) [#/Vol] 2.7 10*3/uL 1.8-7.7 [facility] Neutrophils/100 WBC Auto (Bl d)Ordered By: Adriane Espitia on 02-10-2023 Neutrophils/100 WBC (Bld) 58.1 % . [facility] No Panel InformationOrdered By: Adriane Espitia on 02-10-2023 Estimated GFR (CKD-EPI) > 60.0 mL/Min [facility] Creatinine Clearance (Chem N/A [facility] Nucleated erythrocytes [Pres ence] in Blood by Automated countOrdered By: Adriane Espitia on 02-10-2023 Nucleated RBC Auto Ql (Bld) 0.0 /100{WBC} 0-0.5 [facility] Platelet mean volume Auto (B ld) [Entitic vol]Ordered By: Adriane Espitia on 02-10-2023 Platelet mean volume (Bld) [Entitic vol] 7.6 fL 6.6-10.1 [facility] Platelets Auto (Bld) [#/Vol] Ordered By: Adriane Espitia on 02-10-2023 Platelets (Bld) [#/Vol] 281 10*3/uL 150-450 [facility] Potassium [Moles/volume] in Serum or PlasmaOrdered By: Adriane Espitia on 02-10-2023 Potassium [Moles/Vol] 4.7 mmol/L 3.5-5.1 [facility] RBC Auto (Bld) [#/Vol]Ordere d By: Adriane Espitia on 02-10-2023 RBC (Bld) [#/Vol] 3.21 10*6/uL 3.90-5.60 [facility] Relevant diagnostic tests/la boratory data Narrativeon 02-10-2023 Albumin [Mass/Vol] 3.4 g/dL Low 3.5-5.7 [facility] Work Phone: Anion gap [Moles/Vol] 11.5 mmol/L 6.0-15.0 [facility] Work Phone: Basophils (Bld) [#/Vol] 0 10*3/uL 0.0-0.2 [facility] Work Phone: Basophils/100 WBC (Bld) 0.4 % . [facility] Work Phone: Calcium [Mass/Vol] 8.8 mg/dL 8.6-10.3 [facility] Work Phone: Chloride [Moles/Vol] 103 mmol/L 98-107 [facility] Work Phone: CO2 [Moles/Vol] 25.2 mmol/L 21.0-31.0 [facility] Work Phone: Creatinine [Mass/Vol] 0.65 mg/dL Low 0.70-1.30 [facility] Work Phone: Eosinophils (Bld) [#/Vol] 0.1 10*3/uL 0.0-0.45 [facility] Work Phone: Eosinophils/100 WBC (Bld) 3.1 % . [facility] Work Phone: Erythrocyte distribution width (RBC) [Entitic vol] 14.4 % 12.0-14.8 [facility] Work Phone: GFR/1.73 sq M.predicted MDRD (S/P/Bld) [Vol rate/Area] mL/min/{1.73_m2} [facility] Work Phone: Glucose [Mass/Vol] 102 mg/dL High 70-100 [facility] Work Phone: Hematocrit (Bld) [Volume fraction] 30.9 % Low 38.8-50.0 [facility] Work Phone: Hemoglobin (Bld) [Mass/Vol] 10.3 g/dL Low 13.0-17.0 [facility] Work Phone: Lymphocytes (Bld) [#/Vol] 1.3 10*3/uL 1.00-4.8 [facility] Work Phone: Lymphocytes/100 WBC (Bld) 28.3 % . [facility] Work Phone: MCH (RBC) [Entitic mass] 96.3 fL 83.5-101 [facility] Work Phone: MCH (RBC) [Entitic mass] 32 pg 27.5-35.2 [facility] Work Phone: MCHC (RBC) [Mass/Vol] 33.3 g/dL 32.5-35.6 [facility] Work Phone: Monocytes (Bld) [#/Vol] 0.5 10*3/uL 0.0-0.8 [facility] Work Phone: Monocytes/100 WBC (Bld) 10.1 % . [facility] Work Phone: Neutrophils (Bld) [#/Vol] 2.7 10*3/uL 1.8-7.7 [facility] Work Phone: Neutrophils/100 WBC (Bld) 58.1 % . [facility] Work Phone: Nucleated RBC (Bld) [#/Vol] 0 /100{WBC} 0-0.5 [facility] Work Phone: Platelet mean volume (Bld) [Entitic vol] 7.6 fL 6.6-10.1 [facility] Work Phone: Platelets (Bld) [#/Vol] 281 10*3/uL 150-450 [facility] Work Phone: Potassium [Moles/Vol] 4.7 mmol/L 3.5-5.1 [facility] Work Phone: RBC (Bld) [#/Vol] 3.21 10*6/uL Low 3.90-5.60 [facility] Work Phone: Sodium [Moles/Vol] 135 mmol/L Low 136-145 [facility] Work Phone: Urea nitrogen [Mass/Vol] 19 mg/dL 7 [facility] Work Phone: WBC (Bld) [#/Vol] 4.7 10*3/uL 4.1-10.5 [facility] Work Phone: WBC casts LM.LPF (Urine sed) [#/Area] 4.7 10*3/uL 4.1-10.5 [facility] Work Phone: Serum or plasma anion gap de terminationOrdered By: Adriane Espitia on 02-10-2023 Anion gap [Moles/Vol] 11.5 mmol/L 6.0-15.0 [facility] Sodium [Moles/volume] in Ser um or PlasmaOrdered By: Adriane Espitia on 02-10-2023 Sodium [Moles/Vol] 135 mmol/L 136-145 [facility] Urea nitrogen [Mass/volume] in Serum or PlasmaOrdered By: Adriane Espitia on 02-10-2023 Urea nitrogen [Mass/Vol] 19 mg/dL 7-25 [facility] WBC Auto (Bld) [#/Vol]Ordere d By: Adriane Omkar on 02-10-2023 WBC (Bld) [#/Vol] 4.7 10*3/uL 4.1-10.5 [facility] Relevant diagnostic tests/la boratory data Narrativeon 01-28-2023 Albumin [Mass/Vol] 2.9 g/dL Low 3.5-5.7 [facility] Work Phone: Anion gap [Moles/Vol] 7.1 mmol/L 6.0-15.0 [facility] Work Phone: Basophils (Bld) [#/Vol] 0 10*3/uL 0.0-0.2 [facility] Work Phone: Basophils/100 WBC (Bld) 0.5 % . [facility] Work Phone: C-Peptide 1.4 ng/mL 1.1-4.4 [facility] Work Phone: Calcium [Mass/Vol] 7.8 mg/dL Low 8.6-10.3 [facility] Work Phone: Chloride [Moles/Vol] 109 mmol/L High 98-107 [facility] Work Phone: Cholesterol [Mass/Vol] 72 mg/dL Low 140-200 [facility] Work Phone: Cholesterol in HDL [Mass/Vol] 22 mg/dL Low 23-92 [facility] Work Phone: Cholesterol.total/Cho lesterol in HDL [Mass ratio] 3.3 {ratio} <5.0 [facility] Work Phone: CK [Catalytic activity/Vol] 59 U/L 30-223 [facility] Work Phone: CO2 [Moles/Vol] 25.2 mmol/L 21.0-31.0 [facility] Work Phone: Cobalamin (Vitamin B12) [Mass/Vol] 498 pg/mL 180-914 [facility] Work Phone: Creatinine [Mass/Vol] 0.66 mg/dL Low 0.70-1.30 [facility] Work Phone: Eosinophils (Bld) [#/Vol] 0.1 10*3/uL 0.0-0.45 [facility] Work Phone: Eosinophils/100 WBC (Bld) 3.7 % . [facility] Work Phone: Erythrocyte distribution width (RBC) [Entitic vol] 14.7 % 12.0-14.8 [facility] Work Phone: GFR/1.73 sq M.predicted MDRD (S/P/Bld) [Vol rate/Area] mL/min/{1.73_m2} [facility] Work Phone: Glucose [Mass/Vol] 151 mg/dL [facility] Work Phone: Glucose [Mass/Vol] 111 mg/dL High 70-100 [facility] Work Phone: HbA1c (Bld) [Mass fraction] 6.9 % High 4.3-5.6 [facility] Work Phone: Hematocrit (Bld) [Volume fraction] 27.4 % Low 38.8-50.0 [facility] Work Phone: Hemoglobin (Bld) [Mass/Vol] 9.1 g/dL Low 13.0-17.0 [facility] Work Phone: LDL Cholesterol,Calculate d 40 mg/dL 0-100 [facility] Work Phone: Lymphocytes (Bld) [#/Vol] 1.1 10*3/uL 1.00-4.8 [facility] Work Phone: Lymphocytes/100 WBC (Bld) 27.2 % . [facility] Work Phone: MCH (RBC) [Entitic mass] 95.3 fL 83.5-101 [facility] Work Phone: MCH (RBC) [Entitic mass] 31.7 pg 27.5-35.2 [facility] Work Phone: MCHC (RBC) [Mass/Vol] 33.3 g/dL 32.5-35.6 [facility] Work Phone: Monocytes (Bld) [#/Vol] 0.4 10*3/uL 0.0-0.8 [facility] Work Phone: Monocytes/100 WBC (Bld) 10.1 % . [facility] Work Phone: Neutrophils (Bld) [#/Vol] 2.3 10*3/uL 1.8-7.7 [facility] [facility] Neutrophils/100 WBC (Bld) 58.5 % . [facility] Work Phone: Nucleated RBC (Bld) [#/Vol] 0.2 /100{WBC} 0-0.5 [facility] Work Phone: Platelet mean volume (Bld) [Entitic vol] 7 fL 6.6-10.1 [facility] Work Phone: Platelets (Bld) [#/Vol] 302 10*3/uL 150-450 [facility] Work Phone: Potassium [Moles/Vol] 4.3 mmol/L 3.5-5.1 [facility] Work Phone: RBC (Bld) [#/Vol] 2.88 10*6/uL Low 3.90-5.60 [facility] Work Phone: Reticulocyte Number 0.035 10*6/uL 0.024-0 .08 4 [facility] Work Phone: Reticulocyte Percent 1.2 % 0.5-1.5 [facility] Work Phone: Sodium [Moles/Vol] 137 mmol/L 136-145 [facility] Work Phone: Triglyceride w/Reflex 52 mg/dL 0-149 [facility] Work Phone: Urea nitrogen [Mass/Vol] 16 mg/dL 7-25 [facility] Work Phone: Vitamin D 25 Hydroxy Total < 7.0 Low 30-100 [facility] Work Phone: VLDL CHOLESTEROL 10 mg/dL [facility] Work Phone: WBC (Bld) [#/Vol] 4 10*3/uL Low 4.1-10.5 [facility] Work Phone: WBC casts LM.LPF (Urine sed) [#/Area] 4 10*3/uL Low 4.1-10.5 [facility] Work Phone: A1C with Estimated Average G corkymarisa 01-27-2023 Glucose [Mass/Vol] 151 mg/dL Normal [facility] Comment on above: Order Comment: Diagn osis: D64.9, I48.0, E11.9, K90.81 Comment: DECLAN Lo RM112, HM, 01/23/23 Result Comment: PERF ORMED BY: [place] [address] PATHOLOGIST PRICING COORDINATOR ESTIVEN GENTILE M.D. Performed By: #### C K, B12, RETIC, CBC, BMP, LIPID, [id number], A1C WTH eA, ALB #### [facility] [address] [place] [address] #### CPEP #### [facility] , HbA1c (Bld) [Mass fraction] 6.9 % High 4.3-5.6 [facility] Comment on above: Order Comment: Diagn osis: D64.9, I48.0, E11.9, K90.81 Comment: DECLAN Lo RM112, HM, 01/23/23 Result Comment: Incr eased risk for diabetes: 5.7 - 6.4 diabetes: >6.4 glycemic control for adults with diabetes: <7.0 Performed By: #### C K, B12, RETIC, CBC, BMP, LIPID, [id number], A1C WTH eA, ALB #### [place] [address] [place] #### CPEP #### [facility] , Absolute reticulocyte countO rdered By: Adriane Espitia on 01-27-2023 Reticulocytes (Bld) [#/Vol] 0.035 10*6/uL 0.024-0.08 4 [facility] Albumin Levelon 01-27-2023 Albumin [Mass/Vol] 2.9 g/dL Low 3.5-5.7 [facility] Comment on above: Order Comment: Diagn osis: D64.9, I48.0, E11.9, K90.81 Comment: [id number], ALYSSIA MANRIQUEZ, , 01/23/23 Performed By: #### C K, B12, RETIC, CBC, BMP, LIPID, [id number], A1C WTH eA, ALB #### [address] #### CPEP #### [facility] , Albumin [Mass/volume] in Ser um or Plasma by Bromocresol green (BCG) dye binding methoOrdered By: Adriane Espitia on 01-27-2023 Albumin BCG dye [Mass/Vol] 2.9 g/dL 3.5-5.7 [facility] Basic Metabolic Panelon Anion gap [Moles/Vol] 7.1 mmol/L Normal 6.0-15.0 [facility] Comment on above: Order Comment: Diagn osis: D64.9, I48.0, E11.9, K90.81 Comment: [id number], ALYSSIA MANRIQUEZ, , 01/23/23 Performed By: #### C K, B12, RETIC, CBC, BMP, LIPID, [id number], A1C WTH eA, ALB #### [place] [address] [place] #### CPEP #### [facility] , Calcium [Mass/Vol] 7.8 mg/dL Low 8.6-10.3 [facility] Comment on above: Order Comment: Diagn osis: D64.9, I48.0, E11.9, K90. Comment: [id number], OGMIKHAILZ, RM112, , 01/23/23 Performed By: #### C K, B12, RETIC, CBC, BMP, LIPID, [id number], A1C WTH eA, ALB #### [facility] [address] [place] [address] #### CPEP #### [facility] , Chloride [Moles/Vol] 109 mmol/L High 98-107 [facility] Comment on above: Order Comment: Diagn osis: D64.9, I48.0, E11., K Comment: [id number], BLADIMIRZ, RM112, , 01/23/23 Performed By: #### C K, B12, RETIC, CBC, BMP, LIPID, [id number], A1C WTH eA, ALB #### [facility] [address] [place] [address] #### CPEP #### [facility] , CO2 [Moles/Vol] 25.2 mmol/L Normal 21.0-31.0 [facility] Comment on above: Order Comment: Diagn osis: D64.9, I48.0, E11., K.81 Comment: [id number], OGONTZ, RM112, , 01/23/23 Performed By: #### C K, B12, RETIC, CBC, BMP, LIPID, [id number], A1C WTH eA, ALB #### [facility] [address] [place] [address] [place] #### CPEP #### [facility] , Creatinine [Mass/Vol] 0.66 mg/dL Low 0.70-1.30 [facility] Comment on above: Order Comment: Diagn osis: D64.9, I48.0, E11.9, K90.81 Comment: [id number], DECLAN, RM112, , 01/23/23 Performed By: #### C K, B12, RETIC, CBC, BMP, LIPID, [id number], A1C WTH eA, ALB #### [facility] [address] [place] [address] #### CPEP #### [facility] , GFR/1.73 sq M.predicted MDRD (S/P/Bld) [Vol rate/Area] mL/min/{1.73_m2} Normal [facility] Comment on above: Order Comment: Diagn osis: D64.9, I48.0, E11.9, K90. Comment: [id number], DECLAN, RM112, , 01/23/23 Performed By: #### C K, B12, RETIC, CBC, BMP, LIPID, [id number], A1C WTH eA, ALB #### [facility] [address] [place] [address] [place] #### CPEP #### [facility] , Glucose [Mass/Vol] 111 mg/dL High 70-100 [facility] Comment on above: Order Comment: Diagn osis: D64.9, I48.0, E11.9, K Comment: [id number], DECLAN, [facility], , 01/23/23 Result Comment: [place] Glucose Reference Range is dependent on time and content of last meal. Glucose of more than 200 mg/dL in a nonstressed, ambulatory subject supports the diagnosis of Diabetes Mellitus. ADA recommended reference range Performed By: #### C K, B12, RETIC, CBC, BMP, LIPID, [id number], A1C WTH eA, ALB #### [facility] [address] [place] [address] [place] #### CPEP #### [facility] , Potassium [Moles/Vol] 4.3 mmol/L Normal 3.5-5.1 [facility] Comment on above: Order Comment: Diagn osis: D64.9, I48.0, E11.9, K90.81 Comment: [id number], OGMIKHAILZ, RM112, HM, 01/23/23 Performed By: #### C K, B12, RETIC, CBC, BMP, LIPID, [id number], A1C WTH eA, ALB #### [facility] [address] [place] [address] [place] #### CPEP #### [facility] , Sodium [Moles/Vol] 137 mmol/L Normal 136-145 [facility] Comment on above: Order Comment: Diagn osis: D64.9, I48.0, E11.9, K90.81 Comment: [id number], OGMIKHAILZ, RM112, HM, 01/23/23 Performed By: #### C K, B12, RETIC, CBC, BMP, LIPID, [id number], A1C WTH eA, ALB #### [place] [address] [place] #### CPEP #### [facility] , Urea nitrogen [Mass/Vol] 16 mg/dL Normal 7-25 [facility] Comment on above: Order Comment: Diagn osis: D64.9, I48.0, E11.9, K90.81 Comment: [id number], BLADIMIRZ, RM112, , 01/23/23 Performed By: #### C K, B12, RETIC, CBC, BMP, LIPID, [id number], A1C WTH eA, ALB #### [facility] [address] [place] [address] [place] #### CPEP #### [facility] , Basophils Auto (Bld) [#/Vol] Ordered By: Adriane Espitia on 01-27-2023 Basophils (Bld) [#/Vol] 0.0 10*3/uL 0.0-0.2 [facility] Basophils/100 WBC Auto (Bld) Ordered By: Adriane Espitia on 01-27-2023 Basophils/100 WBC (Bld) 0.5 % . [facility] C-Peptideon 01-27-2023 C-Peptide 1.4 ng/mL Normal 1.1-4.4 [facility] Comment on above: Order Comment: Diagn osis: E11.9, I10, E46, D64.9 Comment: [id number], DECLAN, RM112, , 02/06/23 Result Comment: C-Pe ptide reference interval is for fasting patients. Performed at: - [facility] [id number] Staple Laster: Silverio Mario PhD, Phone: [phone] PERFORMED BY: [place] [address] PATHOLOGIST PRICING COORDINATOR ESTIVEN GENTILE M.D. Performed By: #### A LB, BMP, CBC #### [address] Calcium [Mass/volume] in Ser um or PlasmaOrdered By: Adriane Espitia on 01-27-2023 Calcium [Mass/Vol] 7.8 mg/dL 8.6-10.3 [facility] Carbon dioxide, total [Moles /volume] in Serum or PlasmaOrdered By: Adriane Espitia on 01-27-2023 CO2 [Moles/Vol] 25.2 mmol/L 21.0-31.0 [facility] Chloride [Moles/volume] in S brandi or PlasmaOrdered By: Adriane Espitia on 01-27-2023 Chloride [Moles/Vol] 109 mmol/L 98-107 [facility] Cholesterol [Mass/volume] in Serum or PlasmaOrdered By: Adriane Espitia on 01-27-2023 Cholesterol [Mass/Vol] 72 mg/dL 140-200 [facility] Comment on above: Chol less than 200 m g/dl low riskChol 201-239 mg/dl borderline riskChol 240 mg/dl and greater high risk Cholesterol in LDL Calc [Mas s/Vol]Ordered By: Adriane Espitia on 01-27-2023 Cholesterol in LDL [Mass/Vol] 40 mg/dL 0-100 [facility] Comment on above: LDL ATP III CLASSIFI CATIONLDL less than 100 mg/dL OptimalLDL 100-129 mg/dL Near or above optimalLDL 130-159 mg/dL Borderline highLDL 160-189 mg/dL HighLDL greater than 189 mg/dL Very high Cholesterol in VLDL Calc [Ma ss/Vol]Ordered By: Adriane Espitia on 01-27-2023 Cholesterol in VLDL [Mass/Vol] 10 mg/dL [facility] Complete Blood Count Auto Di ffon 01-27-2023 Basophils (Bld) [#/Vol] 0.0 10*3/uL Normal 0.0-0.2 [facility] Comment on above: Order Comment: Diagn osis: D64.9, I48.0, E11.9, K90. Comment: [id number], OGONTZ, RM112, , 01/23/23 Performed By: #### C K, B12, RETIC, CBC, BMP, LIPID, [id number], A1C WTH eA, ALB #### [address] #### CPEP #### [facility] , Basophils/100 WBC (Bld) 0.5 % Normal . [facility] Comment on above: Order Comment: Diagn osis: D64.9, I48.0, E11., K Comment: [id number], OGONTZ, RM112, , 01/23/23 Performed By: #### C K, B12, RETIC, CBC, BMP, LIPID, [id number], A1C WTH eA, ALB #### [address] #### CPEP #### [facility] , Eosinophils (Bld) [#/Vol] 0.1 10*3/uL Normal 0.0-0.45 [facility] Comment on above: Order Comment: Diagn osis: D64.9, I48.0, E11., K Comment: [id number], OGONTZ, RM112, , 01/23/23 Performed By: #### C K, B12, RETIC, CBC, BMP, LIPID, [id number], A1C WTH eA, ALB #### [facility] [address] [place] [address] [place] #### CPEP #### [facility] , Eosinophils/100 WBC (Bld) 3.7 % Normal . [facility] Comment on above: Order Comment: Diagn osis: D64.9, I48.0, E11.9, K90. Comment: [id number], DECLAN, RM112, , 01/23/23 Performed By: #### C K, B12, RETIC, CBC, BMP, LIPID, [id number], A1C WTH eA, ALB #### [facility] [address] [place] [address] #### CPEP #### [facility] , Erythrocyte distribution width (RBC) [Ratio] 14.7 % Normal 12.0-14.8 [facility] Comment on above: Order Comment: Diagn osis: D64.9, I48.0, E11.9, Comment: [id number], DECLAN, RM112, , 01/23/23 Performed By: #### C K, B12, RETIC, CBC, BMP, LIPID, [id number], A1C WTH eA, ALB #### [address] #### CPEP #### [facility] , Hematocrit (Bld) [Volume fraction] 27.4 % Low 38.8-50.0 [facility] Comment on above: Order Comment: Diagn osis: D64.9, I48.0, E11.9, K. Comment: [id number], DECLAN, RM112, , 01/23/23 Performed By: #### C K, B12, RETIC, CBC, BMP, LIPID, [id number], A1C WTH eA, ALB #### [address] #### CPEP #### [facility] , Hemoglobin (Bld) [Mass/Vol] 9.1 g/dL Low 13.0-17.0 [facility] Comment on above: Order Comment: Diagn osis: D64.9, I48.0, E11.9, K81 Comment: [id number], OGONTZ, RM112, , 01/23/23 Performed By: #### C K, B12, RETIC, CBC, BMP, LIPID, [id number], A1C WTH eA, ALB #### [address] #### CPEP #### [facility] , Lymphocytes (Bld) [#/Vol] 1.1 10*3/uL Normal 1.00-4.8 [facility] Comment on above: Order Comment: Diagn osis: D64.9, I48.0, E11.9, K90.81 Comment: [id number], BLADIMIRZ, RM112, , 01/23/23 Performed By: #### C K, B12, RETIC, CBC, BMP, LIPID, [id number], A1C WTH eA, ALB #### [address] #### CPEP #### [facility] , Lymphocytes/100 WBC (Bld) 27.2 % Normal . [facility] Comment on above: Order Comment: Diagn osis: D64.9, I48.0, E11.9, K90.81 Comment: [id number], DECLAN, RM112, , 01/23/23 Performed By: #### C K, B12, RETIC, CBC, BMP, LIPID, [id number], A1C WTH eA, ALB #### [address] #### CPEP #### [facility] , MCH (RBC) [Entitic mass] 31.7 pg Normal 27.5-35.2 [facility] Comment on above: Order Comment: Diagn osis: D64.9, I48.0, E11.9, K90.81 Comment: [id number], DECLAN, RM112, , 01/23/23 Performed By: #### C K, B12, RETIC, CBC, BMP, LIPID, [id number], A1C WTH eA, ALB #### [address] #### CPEP #### [facility] , MCV (RBC) [Entitic vol] 95.3 fL Normal 83.5-101 [facility] Comment on above: Order Comment: Diagn osis: D64.9, I48.0, E11., Comment: [id number], [facility]MIKHAILZ, [facility] , 01/23/23 Performed By: #### C K, B12, RETIC, CBC, BMP, LIPID, [id number], A1C WTH eA, ALB #### [facility] [address] [place] [address] #### CPEP #### [facility] , Mean Corpuscular HGB Conc 33.3 g/dL Normal 32.5-35.6 [facility] Comment on above: Order Comment: Diagn osis: D64.9, I48.0, , Comment: [id number], OGMIKHAILZ, [facility], , 01/23/23 Performed By: #### C K, B12, RETIC, CBC, BMP, LIPID, [id number], A1C WTH eA, ALB #### [facility] [address] [place] [address] #### CPEP #### [facility] , Monocytes (Bld) [#/Vol] 0.4 10*3/uL Normal 0.0-0.8 [facility] Comment on above: Order Comment: Diagn osis: D64.9, I48.0, , Comment: [id number], OGONTZ, RM112, , 01/23/23 Performed By: #### C K, B12, RETIC, CBC, BMP, LIPID, [id number], A1C WTH eA, ALB #### [facility] [address] [place] [address] [place] #### CPEP #### [facility] , Monocytes/100 WBC (Bld) 10.1 % Normal . [facility] Comment on above: Order Comment: Diagn osis: D64.9, I48.0, E11.9, Comment: [id number], OGMIKHAILZ, RM112, HM, 01/23/23 Performed By: #### C K, B12, RETIC, CBC, BMP, LIPID, [id number], A1C WTH eA, ALB #### [address] #### CPEP #### [facility] , Neutrophils (Bld) [#/Vol] 2.3 10*3/uL Normal 1.8-7.7 [facility] Comment on above: Order Comment: Diagn osis: D64.9, I48.0, E11., K Comment: [id number], OGMIKHAILZ, RM112, , 01/23/23 Performed By: #### C K, B12, RETIC, CBC, BMP, LIPID, [id number], A1C WTH eA, ALB #### [address] #### CPEP #### [facility] , Neutrophils/100 WBC (Bld) 58.5 % Normal . [facility] Comment on above: Order Comment: Diagn osis: D64.9, I48.0, E11., K Comment: [id number], BLADIMIRZ, RM112, , 01/23/23 Performed By: #### C K, B12, RETIC, CBC, BMP, LIPID, [id number], A1C WTH eA, ALB #### [address] #### CPEP #### [facility] , NRBC% 0.2 /100{WBC} Normal 0-0.5 [facility] Comment on above: Order Comment: Diagn osis: D64.9, I48.0, E11, Comment: [id number], OGONTZ, RM112, , 01/23/23 Performed By: #### C K, B12, RETIC, CBC, BMP, LIPID, [id number], A1C WTH eA, ALB #### [address] [address] [place] #### CPEP #### [facility] , Platelet mean volume (Bld) [Entitic vol] 7.0 fL Normal 6.6-10.1 [facility] Comment on above: Order Comment: Diagn osis: D64.9, I48.0, E11.9, K90.81 Comment: [id number], OGONTZ, RM112, HM, 01/23/23 Performed By: #### C K, B12, RETIC, CBC, BMP, LIPID, [id number], A1C WTH eA, ALB #### [facility] [address] [place] [address] #### CPEP #### [facility] , Platelets (Bld) [#/Vol] 302 10*3/uL Normal 150-450 [facility] Comment on above: Order Comment: Diagn osis: D64.9, I48.0, E11.9, K90.81 Comment: [id number], OGONTZ, RM112, HM, 01/23/23 Performed By: #### C K, B12, RETIC, CBC, BMP, LIPID, [id number], A1C WTH eA, ALB #### [facility] [address] [place] [address] #### CPEP #### [facility] , RBC (Bld) [#/Vol] 2.88 10*6/uL Low 3.90-5.60 [facility] Comment on above: Order Comment: Diagn osis: D64.9, I48.0, E11.9, K90.81 Comment: [id number], OGONTZ, RM112, HM, 01/23/23 Performed By: #### C K, B12, RETIC, CBC, BMP, LIPID, [id number], A1C WTH eA, ALB #### [facility] [address] [place] [address] [place] #### CPEP #### [facility] , WBC (Bld) [#/Vol] 4.0 10*3/uL Low 4.1-10.5 [facility] Comment on above: Order Comment: Diagn osis: D64.9, I48.0, E11.9, K90.81 Comment: [id number], DECLAN, RM112, HM, 01/23/23 Performed By: #### C K, B12, RETIC, CBC, BMP, LIPID, [id number], A1C WTH eA, ALB #### [facility] [address] [place] [address] [place] #### CPEP #### [facility] , Creatine Kinaseon 01-27-2023 CK [Catalytic activity/Vol] 59 U/L Normal [facility] Comment on above: Order Comment: Diagn osis: D64.9, I48.0, E11.9, K90.81 Comment: [id number], DECLAN, RM112, HM, 01/23/23 Result Comment: PERF ORMED BY: [place] [address] PATHOLOGIST PRICING COORDINATOR ESTIVEN GENTILE M.D. Performed By: #### C K, B12, RETIC, CBC, BMP, LIPID, [id number], A1C WT eA, ALB #### [facility] [address] [place] [address] #### CPEP #### [facility] , Creatine kinase [Enzymatic a ctivity/volume] in Serum or PlasmaOrdered By: Adriane Espitia on 01-27-2023 CK [Catalytic activity/Vol] 59 U/L [facility] Creatinine [Mass/volume] in Serum or PlasmaOrdered By: Adriane Espitia on 01-27-2023 Creatinine [Mass/Vol] 0.66 mg/dL 0.70-1.30 [facility] Eosinophils Auto (Bld) [#/Vo l]Ordered By: Adriane Espitia on 01-27-2023 Eosinophils (Bld) [#/Vol] 0.1 10*3/uL 0.0-0.45 [facility] Eosinophils/100 WBC Auto (Bl d)Ordered By: Adriane Espitia on 01-27-2023 Eosinophils/100 WBC (Bld) 3.7 % . [facility] Erythrocyte distribution wid th Auto (RBC) [Ratio]Ordered By: Adriane Espitia on 01-27-2023 Erythrocyte distribution width (RBC) [Ratio] 14.7 % 12.0-14.8 [facility] Glucose [Mass/volume] in Ser um or PlasmaOrdered By: Adriane Epsitia on 01-27-2023 Glucose [Mass/Vol] 111 mg/dL 70-100 [facility] Comment on above: ADA recommended refe rence rangeRandom Glucose Reference Range is dependent on time and content of last meal. Glucose of more than 200 mg/dL in a nonstressed, ambulatory subject supports the diagnosis of Diabetes Mellitus. Glucose mean value [Mass/vol ume] in Blood Estimated from glycated hemoglobinOrdered By: Adriane Espitia on 01-27-2023 Average glucose Estimated from glycated hemoglobin (Bld) [Mass/Vol] 151 mg/dL [facility] Hematocrit Auto (Bld) [Volum e fraction]Ordered By: Adriane Espitia on 01-27-2023 Hematocrit (Bld) [Volume fraction] 27.4 % 38.8-50.0 [facility] Hemoglobin A1c percentageOrd ered By: Adriane Espitia on 01-27-2023 HbA1c (Bld) [Mass fraction] 6.9 % 4.3-5.6 [facility] Comment on above: Increased risk for d iabetes: 5.7 - 6.4diabetes: >6.4glycemic control for adults with diabetes: <7.0 Hemoglobin [Mass/volume] in BloodOrdered By: Adriaen Espitia on 01-27-2023 Hemoglobin (Bld) [Mass/Vol] 9.1 g/dL 13.0-17.0 [facility] Leukocytes [#/volume] correc missael for nucleated erythrocytes in Blood by Automated counOrdered By: Adriane Espitia on 01-27-2023 WBC corrected for nucl RBC Auto (Bld) [#/Vol] 4.0 10*3/uL 4.1-10.5 [facility] Lipid Panelon 01-27-2023 Cholesterol [Mass/Vol] 72 mg/dL Low 140-200 [facility] Comment on above: Order Comment: Diagn osis: D64.9, I48.0, E11, Comment: [id number], DECLAN, [facility], , 01/23/23 Result Comment: Chol less than 200 mg/dl low risk Chol 201-239 mg/dl borderline risk Chol 240 mg/dl and greater high risk Performed By: #### C K, B12, RETIC, CBC, BMP, LIPID, [id number], A1C WTH eA, ALB #### [facility] [address] [place] [address] #### CPEP #### [facility] , Cholesterol in HDL [Mass/Vol] 22 mg/dL Low 23-92 [facility] Comment on above: Order Comment: Diagn osis: D64.9, I48.0, , Comment: [id number], DECLAN, [facility], , 01/23/23 Result Comment: HDL CHOL ATP-III CLASSIFICATION Cardiovascular Risk HDL > or equal to 60 mg/dL LOW HDL < 40 mg/dL HIGH Performed By: #### C K, B12, RETIC, CBC, BMP, LIPID, [id number], A1C WTH eA, ALB #### [facility] [address] [place] [address] #### CPEP #### [facility] , Cholesterol.total/Cho lesterol in HDL [Mass ratio] 3.3 {ratio} Normal <5.0 [facility] Comment on above: Order Comment: Diagn osis: D64.9, I48.0, E11, Comment: [id number], DECLAN, [facility], , 01/23/23 Performed By: #### C K, B12, RETIC, CBC, BMP, LIPID, [id number], A1C WTH eA, ALB #### [facility] [address] [place] [address] [place] #### CPEP #### [facility] , LDL Cholesterol,Calculate d 40 mg/dL Normal 0-100 [facility] Comment on above: Order Comment: Diagn osis: D64.9, I48.0, E11, K90.81 Comment: [id number], DECLAN, RM112, , 01/23/23 Result Comment: LDL ATP III CLASSIFICATION LDL less than 100 mg/dL Optimal LDL 100-129 mg/dL Near or above optimal LDL 130-159 mg/dL Borderline high LDL 160-189 mg/dL High LDL greater than 189 mg/dL Very high Performed By: #### C K, B12, RETIC, CBC, BMP, LIPID, [id number], A1C WTH eA, ALB #### [address] #### CPEP #### [facility] , Triglyceride w/Reflex 52 mg/dL Normal 0-149 [facility] Comment on above: Order Comment: Diagn osis: D64.9, I48.0, E11.9, K9081 Comment: [id number], DECLAN, RM112, , 01/23/23 Result Comment: TRIG ATP III CLASSIFICATION TRIG less than 150 mg/dL Normal TRIG 150-199 mg/dL Borderline high TRIG 200-500 mg/dL High TRIG greater than 500 mg/dL Very high Standard traceable to the Center for Disease Conrtrol and Prevention (CDC) test method. Performed By: #### C K, B12, RETIC, CBC, BMP, LIPID, [id number], A1C WTH eA, ALB #### [address] #### CPEP #### [facility] , VLDL CHOLESTEROL 10 mg/dL Normal [facility] Comment on above: Order Comment: Diagn osis: D64.9, I48.0, E11.9, K90.81 Comment: [id number], DECLAN, RM112, , 01/23/23 Performed By: #### C K, B12, RETIC, CBC, BMP, LIPID, [id number], A1C WTH eA, ALB #### [address] #### CPEP #### [facility] , Lymphocytes Auto (Bld) [#/Vo l]Ordered By: Adriane Espitia on 01-27-2023 Lymphocytes (Bld) [#/Vol] 1.1 10*3/uL 1.00-4.8 [facility] Lymphocytes/100 WBC Auto (Bl d)Ordered By: Adriane Espitia on 01-27-2023 Lymphocytes/100 WBC (Bld) 27.2 % . [facility] MCH Auto (RBC) [Entitic mass ]Ordered By: Adriane Espitia on 01-27-2023 MCH (RBC) [Entitic mass] 31.7 pg 27.5-35.2 [facility] MCHC Auto (RBC) [Mass/Vol]Or dered By: Adriane Espitia on 01-27-2023 MCHC (RBC) [Mass/Vol] 33.3 g/dL 32.5-35.6 [facility] MCV Auto (RBC) [Entitic vol] Ordered By: Adriane Espitia on 01-27-2023 MCV (RBC) [Entitic vol] 95.3 fL 83.5-101 [facility] Monocytes Auto (Bld) [#/Vol] Ordered By: Adriane Espitia on 01-27-2023 Monocytes (Bld) [#/Vol] 0.4 10*3/uL 0.0-0.8 [facility] Monocytes/100 WBC Auto (Bld) Ordered By: Adriane Espitia on 01-27-2023 Monocytes/100 WBC (Bld) 10.1 % . [facility] Neutrophils Auto (Bld) [#/Vo l]Ordered By: Adriane Espitia on 01-27-2023 Neutrophils (Bld) [#/Vol] 2.3 10*3/uL 1.8-7.7 [facility] Neutrophils/100 WBC Auto (Bl d)Ordered By: Adriane Espitia on 01-27-2023 Neutrophils/100 WBC (Bld) 58.5 % . [facility] No Panel InformationOrdered By: Adriane Espitia on 01-27-2023 C-Peptide 1.4 ng/mL 1.1-4.4 [facility] Comment on above: C-Peptide reference interval is for fasting patients.Performed at: - [facility] [id number] Director: Silverio Mario PhD, Phone: [phone] Estimated GFR (CKD-EPI) > 60.0 mL/Min [facility] Creatinine Clearance (Chem N/A [facility] Nucleated erythrocytes [Pres ence] in Blood by Automated countOrdered By: Adriane Espitia on 01-27-2023 Nucleated RBC Auto Ql (Bld) 0.2 /100{WBC} 0-0.5 [facility] Platelet mean volume Auto (B ld) [Entitic vol]Ordered By: Adriane Espitia on 01-27-2023 Platelet mean volume (Bld) [Entitic vol] 7.0 fL 6.6-10.1 [facility] Platelets Auto (Bld) [#/Vol] Ordered By: Adriane Espitia on 01-27-2023 Platelets (Bld) [#/Vol] 302 10*3/uL 150-450 [facility] Potassium [Moles/volume] in Serum or PlasmaOrdered By: Adriane Espitia on 01-27-2023 Potassium [Moles/Vol] 4.3 mmol/L 3.5-5.1 [facility] RBC Auto (Bld) [#/Vol]Ordere d By: Adriane Espitia on 01-27-2023 RBC (Bld) [#/Vol] 2.88 10*6/uL 3.90-5.60 [facility] [facility]on 023 Reticulocyte Number 0.035 10*6/uL Normal 0.024-0 .08 4 [facility] Comment on above: Order Comment: Diagn osis: D64.9, I48.0, E11.9, K90.81 Comment: [id number], DECLAN, RM112, , 01/23/23 Result Comment: PERF ORMED BY: [place] [address] PATHOLOGIST PRICING COORDINATOR ESTIVEN GENTILE M.D. Performed By: #### C K, B12, RETIC, CBC, BMP, LIPID, [id number], A1C WTH eA, ALB #### [facility] [address] [place] [address] [place] #### CPEP #### [facility] , Reticulocyte Percent 1.2 % Normal 0.5-1.5 [facility] Comment on above: Order Comment: Diagn osis: D64.9, I48.0, E11.9, K90.81 Comment: [id number], DECLAN, RM112, , 01/23/23 Performed By: #### C K, B12, RETIC, CBC, BMP, LIPID, [id number], A1C WTH eA, ALB #### [facility] [address] #### CPEP #### [facility] , Reticulocytes/100 RBC Auto ( Bld)Ordered By: Adriane Espitia on 01-27-2023 Reticulocytes/100 RBC (Bld) 1.2 % 0.5-1.5 [facility] Serum or plasma anion gap de terminationOrdered By: Adriane Espitia on 01-27-2023 Anion gap [Moles/Vol] 7.1 mmol/L 6.0-15.0 [facility] Serum or plasma high density lipoprotein (HDL) cholesterol measurementOrdered By: Adriane Espitia on 01-27-2023 Cholesterol in HDL [Mass/Vol] 22 mg/dL 23-92 [facility] Comment on above: HDL CHOL ATP-III CLA SSIFICATION Cardiovascular RiskHDL > or equal to 60 mg/dL LOWHDL < 40 mg/dL HIGH Serum or plasma total choles terol/high density lipoprotein (HDL) cholesterol mass ratOrdered By: Adriane Espitia on 01-27-2023 Cholesterol.total/Cho lesterol in HDL [Mass ratio] 3.3 {ratio} <5.0 [facility] Sodium [Moles/volume] in Ser um or PlasmaOrdered By: Adriane Espitia on 01-27-2023 Sodium [Moles/Vol] 137 mmol/L 136-145 [facility] Triglyceride [Mass/volume] i n Serum or PlasmaOrdered By: Adriane Espitia on 01-27-2023 Triglyceride [Mass/Vol] 52 mg/dL 0-149 [facility] Comment on above: TRIG ATP III CLASSIF ICATIONTRIG less than 150 mg/dL NormalTRIG 150-199 mg/dL Borderline highTRIG 200-500 mg/dL High TRIG greater than 500 mg/dL Very highStandard traceable to the Center for Disease Conrtrol and Prevention (CDC) test method. Urea nitrogen [Mass/volume] in Serum or PlasmaOrdered By: Adriane Espitia on 01-27-2023 Urea nitrogen [Mass/Vol] 16 mg/dL 7-25 [facility] Vitamin B12on 01-27-2023 Cobalamin (Vitamin B12) [Mass/Vol] 498 pg/mL Normal 180-914 [facility] Comment on above: Order Comment: Diagn osis: E11.9, I10, E46, D64.9 Comment: [id number], DECLAN, ALYSSIA, , 02/06/23 Performed By: #### A VIPIN HIGGINBOTHAM, CBC #### [facility] [address] Vitamin B12 ser/plasOrdered By: Adriane Espitia on 01-27-2023 Cobalamin (Vitamin B12) [Mass/Vol] 498 pg/mL 180-914 [facility] Vitamin D 25 Hydroxy Totalon 01-27-2023 Vitamin D 25 Hydroxy Total < 7.0 Low 30-100 [facility] Comment on above: Order Comment: Diagn osis: E11.9, I10, E46, D64.9 Comment: [id number], DECLAN, [facility], , 02/06/23 Result Comment: TAYLER MIN D STATUS 25(OH)VITAMIN D RANGE (ng/mL) Deficient <20 Insufficient 20 to <30 Sufficient 30 to 100 Reference: Janny MF,Carmen NC, Brant CAMPUZANO, et al. Evaluation,treatment, and prevention of vitamin D deficiency; an Endocrine Society clinical practice guideline. JCEM. 2010; 96(7):1911-30. PERFORMED BY: [place] [address] PATHOLOGIST PRICING COORDINATOR ESTIVEN GENTILE M.D. Performed By: #### A ANAHY, BMP, CBC #### [facility] [id number] [facility] Vitamin D+Metabolites [Mass/ volume] in Serum or PlasmaOrdered By: Adriane Espitia on 01-27-2023 Vitamin D+Metabolites [Mass/Vol] < 7.0 ng/mL 30-100 [facility] Comment on above: VITAMIN D STATUS 25( [place])VITAMIN D RANGE (ng/mL) Deficient <20 Insufficient 20 to <30Sufficient 30 to 100Reference: Janny GEE,Carmen LACEY, Brant CAMPUZANO, et al. Evaluation,treatment, and prevention of vitamin D deficiency; an Endocrine Society clinical practice guideline. JCEM. 2010; 96(7):1911-30. WBC Auto (Bld) [#/Vol]Ordere d By: Adriane Espitia on 01-27-2023 WBC (Bld) [#/Vol] 4.0 10*3/uL 4.1-10.5 [facility] CNPNon 01-21-2023 CNPN Normal [facility] CNPNon 01-13-2023 CNPN Normal [facility] CNNURSEon 12-26-2022 CNNURSE Normal [facility] CBC W Auto Differential pane l (Bld)on 11-28-2022 Basophils (Bld) [#/Vol] 10*3/uL Normal <0.11 [facility] Comment on above: Order Comment: Speci men Type: BLOOD SPECIMENOrdering Facility: [facility] Address: [address] [address] Performed By: #### 5 7021-8 ####[facility] LABCLIA [id number] [place] [address] Basophils/100 WBC (Bld) 0.2 % Normal [facility] Comment on above: Order Comment: Speci men Type: BLOOD SPECIMENOrdering Facility: [facility] Address: [address] [address] Performed By: #### 5 7021-8 ####[facility] LABCLIA [id number] [place] [address] Differential cell count method Nom (Bld) Auto Normal [facility] Comment on above: Order Comment: Speci men Type: BLOOD SPECIMENOrdering Facility: [facility] Address: [address] [address] Performed By: #### 5 7021-8 ####[facility] LABCLIA [id number] [place] [address] Eosinophils (Bld) [#/Vol] 0.07 10*3/uL Normal <0.46 [facility] Comment on above: Order Comment: Speci men Type: BLOOD SPECIMENOrdering Facility: [facility] Address: [address] [place] [address] Performed By: #### 5 7021-8 ####[facility] LABCLIA [id number] [place] [address] Eosinophils/100 WBC (Bld) 1.7 % Normal [facility] Comment on above: Order Comment: Speci men Type: BLOOD SPECIMENOrdering Facility: [facility] Address: [address] [place] [address] Performed By: #### 5 7021-8 ####[facility] LABCLIA [id number] [place] [address] Erythrocyte distribution width (RBC) [Ratio] 13.6 % Normal 11.5-15.0 [facility] Comment on above: Order Comment: Speci men Type: BLOOD SPECIMENOrdering Facility: [facility] Address: [address] [place] [address] Performed By: #### 5 7021-8 ####[facility] LABCLIA [id number] [place] [address] Hematocrit (Bld) [Volume fraction] 31.8 % Low 39.0-51.0 [facility] Comment on above: Order Comment: Speci men Type: BLOOD SPECIMENOrdering Facility: [facility] Address: [address] [place] [address] Performed By: #### 5 7021-8 ####[facility] LABCLIA [id number] [place] [address] Hemoglobin (Bld) [Mass/Vol] 10.2 g/dL Low 13.0-17.0 [facility] Comment on above: Order Comment: Speci men Type: BLOOD SPECIMENOrdering Facility: [facility] Address: [address] [address] Performed By: #### 5 7021-8 ####[facility] LABCLIA [id number] [place] [address] Immature granulocytes (Bld) [#/Vol] 10*3/uL Normal <0.10 [facility] Comment on above: Order Comment: Speci men Type: BLOOD SPECIMENOrdering Facility: [facility] Address: [address] [address] Performed By: #### 5 7021-8 ####[facility] LABCLIA [id number] [place] [address] Immature granulocytes/100 WBC (Bld) 0.5 % Normal [facility] Comment on above: Order Comment: Speci men Type: BLOOD SPECIMENOrdering Facility: [facility] Address: [address] [address] Performed By: #### 5 7021-8 ####[facility] LABCLIA [id number] [place] [address] Lymphocytes (Bld) [#/Vol] 1.17 10*3/uL Normal 1.00-4.00 [facility] Comment on above: Order Comment: Speci men Type: BLOOD SPECIMENOrdering Facility: [facility] Address: [address] [address] Performed By: #### 5 7021-8 ####[facility] LABCLIA [id number] [place] [address] Lymphocytes/100 WBC (Bld) 28.3 % Normal [facility] Comment on above: Order Comment: Speci men Type: BLOOD SPECIMENOrdering Facility: [facility] Address: [address] [place] [address] Performed By: #### 5 7021-8 ####[facility] LABCLIA [id number] [place] [address] MCH (RBC) [Entitic mass] 30.0 pg Normal 26.0-34.0 [facility] Comment on above: Order Comment: Speci men Type: BLOOD SPECIMENOrdering Facility: [facility] Address: [address] [place] [address] Performed By: #### 5 7021-8 ####[facility] LABIA [id number] [place] [address] MCHC (RBC) [Mass/Vol] 32.1 g/dL Normal 30.5-36.0 [facility] Comment on above: Order Comment: Speci men Type: BLOOD SPECIMENOrdering Facility: [facility] Address: [address] [place] [address] Performed By: #### 5 7021-8 ####[facility] LABIA [id number] [place] [address] MCV (RBC) [Entitic vol] 93.5 fL Normal 80.0-100.0 [facility] Comment on above: Order Comment: Speci men Type: BLOOD SPECIMENOrdering Facility: [facility] Address: [address] [place] [address] Performed By: #### 5 7021-8 ####[facility] LABIA [id number] [place] [address] Monocytes (Bld) [#/Vol] 0.38 10*3/uL Normal <0.87 [facility] Comment on above: Order Comment: Speci men Type: BLOOD SPECIMENOrdering Facility: [facility] Address: [address] [place] [address] Performed By: #### 5 7021-8 ####[facility] LABIA [id number] [place] [address] Monocytes/100 WBC (Bld) 9.2 % Normal [facility] Comment on above: Order Comment: Speci men Type: BLOOD SPECIMENOrdering Facility: [facility] Address: [address] [address] Performed By: #### 5 7021-8 ####[facility] LABCLIA [id number] [place] [address] Neutrophils (Bld) [#/Vol] 2.49 10*3/uL Normal 1.45-7.50 [facility] Comment on above: Order Comment: Speci men Type: BLOOD SPECIMENOrdering Facility: [facility] Address: [address] [address] Performed By: #### 5 7021-8 ####[facility] LABCLIA [id number] [place] [address] Neutrophils/100 WBC (Bld) 60.1 % Normal [facility] Comment on above: Order Comment: Speci men Type: BLOOD SPECIMENOrdering Facility: [facility] Address: [address] [place] [address] Performed By: #### 5 7021-8 ####[facility] LABCLIA [id number] [place] [address] Nucleated RBC (Bld) [#/Vol] 10*3/uL Normal <0.01 [facility] Comment on above: Order Comment: Speci men Type: BLOOD SPECIMENOrdering Facility: [facility] Address: [address] [place] [address] Performed By: #### 5 7021-8 ####[facility] LABCLIA [id number] [place] [address] Nucleated RBC/100 WBC (Bld) [Ratio] 0.0 /100 WBC Normal [facility] Comment on above: Order Comment: Speci men Type: BLOOD SPECIMENOrdering Facility: [facility] Address: [address] [place] [address] Performed By: #### 5 7021-8 ####[facility] LABCLIA [id number] [place] [address] Platelet mean volume (Bld) [Entitic vol] 9.3 fL Normal 9.0-12.7 [facility] Comment on above: Order Comment: Speci men Type: BLOOD SPECIMENOrdering Facility: [facility] Address: [address] [place] [address] Performed By: #### 5 7021-8 ####[facility] LABCLIA [id number] [place] [address] Platelets (Bld) [#/Vol] 316 10*3/uL Normal 150-400 [facility] Comment on above: Order Comment: Speci men Type: BLOOD SPECIMENOrdering Facility: [facility] Address: [address] [place] [address] Performed By: #### 5 7021-8 ####[facility] LABIA [id number] [place] [address] RBC (Bld) [#/Vol] 3.40 10*6/uL Low 4.20-6.00 [facility] Comment on above: Order Comment: Speci men Type: BLOOD SPECIMENOrdering Facility: [facility] Address: [address] [place] [address] Performed By: #### 5 7021-8 ####[facility] LABCLIA [id number] [place] [address] WBC (Bld) [#/Vol] 4.14 10*3/uL Normal 3.70-11.00 [facility] Comment on above: Order Comment: Speci men Type: BLOOD SPECIMENOrdering Facility: [facility] Address: [address] [place] [address] Performed By: #### 5 7021-8 ####[facility] LABIA [id number] [place] [address] CNNURSEon 11-28-2022 CNNURSE Normal [facility] CNOVSPon 11-28-2022 CNOVSP Normal [facility] metabolic 2000 panelon 11-28-2022 Albumin [Mass/Vol] 3.6 g/dL Low 3.9-4.9 [facility] Comment on above: Order Comment: Speci men Type: BLOOD SPECIMENOrdering Facility: [facility] Address: [address] [place] [address] Performed By: #### 2 4323-8 ####[facility] LABCLIA [id number] [place] [address] ALP [Catalytic activity/Vol] 143 U/L High 38-113 [facility] Comment on above: Order Comment: Speci men Type: BLOOD SPECIMENOrdering Facility: [facility] Address: [address] [place] [address] Performed By: #### 2 4323-8 ####[facility] LABCLIA [id number] [place] [address] ALT [Catalytic activity/Vol] 25 U/L Normal 10-54 [facility] Comment on above: Order Comment: Speci men Type: BLOOD SPECIMENOrdering Facility: [facility] Address: [address] [place] [address] Performed By: #### 2 4323-8 ####[facility] LABCLIA [id number] [place] [address] Anion gap [Moles/Vol] 10 mmol/L Normal 9-18 [facility] Comment on above: Order Comment: Speci men Type: BLOOD SPECIMENOrdering Facility: [facility] Address: [address] [place] [address] Performed By: #### 2 4323-8 ####[facility] LABCLIA [id number] [place] [address] AST [Catalytic activity/Vol] 15 U/L Normal 14-40 [facility] Comment on above: Order Comment: Speci men Type: BLOOD SPECIMENOrdering Facility: [facility] Address: [address] [place] [address] Performed By: #### 2 4323-8 ####[facility] LABCLIA [id number] [place] [address] Bilirubin [Mass/Vol] 0.2 mg/dL Normal 0.2-1.3 [facility] Comment on above: Order Comment: Speci men Type: BLOOD SPECIMENOrdering Facility: [facility] Address: [address] [place] [address] Performed By: #### 2 4323-8 ####[facility] LABCLIA [id number] [place] [address] Calcium [Mass/Vol] 9.4 mg/dL Normal 8.5-10.2 [facility] Comment on above: Order Comment: Speci men Type: BLOOD SPECIMENOrdering Facility: [facility] Address: [address] [place] [address] Performed By: #### 2 4323-8 ####[facility] LABCLIA [id number] [place] [address] Chloride [Moles/Vol] 103 mmol/L Normal 97-105 [facility] Comment on above: Order Comment: Speci men Type: BLOOD SPECIMENOrdering Facility: [facility] Address: [address] [place] [address] Performed By: #### 2 4323-8 ####[facility] LABCLIA [id number] [place] [address] CO2 [Moles/Vol] 19 mmol/L Low 22-30 [facility] Comment on above: Order Comment: Speci men Type: BLOOD SPECIMENOrdering Facility: [facility] Address: [address] [place] [address] Performed By: #### 2 4323-8 ####[facility] LABCLIA [id number] [place] [address] Creatinine [Mass/Vol] 0.90 mg/dL Normal 0.73-1.22 [facility] Comment on above: Order Comment: Speci men Type: BLOOD SPECIMENOrdering Facility: [facility] Address: [address] [place] [address] Performed By: #### 2 4323-8 ####[facility] LABCLIA [id number] [place] [address] ESTIMATED GLOMERULAR FILTRATION RATE 95 mL/min/1.73m??? Normal >=60 [facility] Comment on above: Order Comment: Frank real Type: BLOOD SPECIMENOrdering Facility: [facility] Address: [address] [place] [address] Result Comment: Megan mated Glomerular Filtration Rate (eGFR) is calculated using the 2020 CKD-EPI creatinine equation. This equation utilizes serum creatinine, sex, and age as parameters. The creatinine assay has traceable calibration to isotope dilution-mass spectrometry. Refer to KDIGO guidelines for clinical interpretation. In patients with unstable renal function, e.g. those with acute kidney injury, the eGFR may not accurately reflect actual GFR. Performed By: #### 2 4323-8 ####[facility] LABCLIA [id number] [place] [address] Glucose [Mass/Vol] 422 mg/dL High 74-99 [facility] Comment on above: Order Comment: Frank real Type: BLOOD SPECIMENOrdering Facility: [facility] Address: [address] [place] [address] Result Comment: The [place] [employer] (ADA) provides guidance for cutoff values for fasting glucose and random glucose. The ADA defines fasting as no caloric intake for at least 8 hours. Fasting plasma glucose results between 100 to 125 mg/dL indicate increased risk for diabetes (prediabetes).Fasting plasma glucose results greater than or equal to 126 mg/dL meet the criteria for diagnosis of diabetes. In the absence of unequivocal hyperglycemia, results should be confirmed by repeat testing. In a patient with classic symptoms of hyperglycemia or hyperglycemic crisis, random plasma glucose results greater than or equal to 200 mg/dL meet the criteria for diagnosis of diabetes.Reference: Standards of Medical Care in Diabetes 2016, [place] [employer]. Diabetes Care. 2016.39(Suppl 1). Performed By: #### 2 4323-8 ####[facility] LABCLIA [id number] [place] [address] Potassium [Moles/Vol] 4.7 mmol/L Normal 3.7-5.1 [facility] Comment on above: Order Comment: Speci men Type: BLOOD SPECIMENOrdering Facility: [facility] Address: [address] [place] [address] Performed By: #### 2 4323-8 ####[facility] LABCLIA [id number] [place] [address] Protein [Mass/Vol] 7.0 g/dL Normal 6.3-8.0 [facility] Comment on above: Order Comment: Speci men Type: BLOOD SPECIMENOrdering Facility: [facility] Address: [address] [place] [address] Performed By: #### 2 4323-8 ####[facility] LABIA [id number] [place] [address] Sodium [Moles/Vol] 132 mmol/L Low 136-144 [facility] Comment on above: Order Comment: Speci men Type: BLOOD SPECIMENOrdering Facility: [facility] Address: [address] [place] [address] Performed By: #### 2 4323-8 ####[facility] LABIA [id number] [place] [address] Urea nitrogen [Mass/Vol] 30 mg/dL High 9-24 [facility] Comment on above: Order Comment: Speci men Type: BLOOD SPECIMENOrdering Facility: [facility] Address: [address] [place] [address] Performed By: #### 2 4323-8 ####[facility] LABIA [id number] [place] [address] Ferritin SerPl-mCncon 2022 Ferritin [Mass/Vol] 336.0 ng/mL Normal 30.3-565.7 [facility] Comment on above: Order Comment: Speci men Type: BLOOD SPECIMENOrdering Facility: [facility] Address: [address] [place] [address] Performed By: #### 5 0190-8, 2132-02, 2275-09, 2284-01 ####[facility] LABCLIA [id number] [place] [address] [place] Folate SerPl-mCncon 11-29-19 Folate [Mass/Vol] 11.2 ng/mL Normal >4.7 [facility] Comment on above: Order Comment: Speci men Type: BLOOD SPECIMENOrdering Facility: [facility] Address: [address] [place] [address] Performed By: #### 5 0190-8, 2132-02, 2275-09, 2284-01 ####[facility] LABCLIA [id number] [place] [address] [place] Iron and Iron binding capaci ty panelon 11-28-2022 Iron [Mass/Vol] 37 ug/dL Low 41-186 [facility] Comment on above: Order Comment: Speci men Type: BLOOD SPECIMENOrdering Facility: [facility] Address: [address] [place] [address] Performed By: #### 5 0190-8, 2132-02, 2275-09, 2284-01 ####[facility] LABCLIA [id number] [place] [address] [place] Iron binding capacity [Mass/Vol] 220 ug/dL Low 232-386 [facility] Comment on above: Order Comment: Speci men Type: BLOOD SPECIMENOrdering Facility: [facility] Address: [address] [place] [address] Performed By: #### 5 0190-8, 9, 2275-09, 2284-01 ####[facility] LABCLIA [id number] [place] [address] [place] Iron/TIBC [Molar ratio] 16.8 % Normal 15.0-57.0 [facility] Comment on above: Order Comment: Speci men Type: BLOOD SPECIMENOrdering Facility: [facility] Address: [address] [place], [place] [address] Performed By: #### 5 0190-8, 9, 4, 2284-01 ####[facility] LABCLIA [id number] [place] [address] [place] Vit [facility]12 [facility] Cobalamin (Vitamin B12) [Mass/Vol] 868 pg/mL Normal 232-1245 [facility] Comment on above: Order Comment: Speci men Type: BLOOD SPECIMENOrdering Facility: [facility] Address: [address] [place] [address] Performed By: #### 5 0190-8, 2132-02, 2275-09, 2284-01 ####[facility] LABCLIA [id number] [place] [address] [place] CNNURSEon 10-31-2022 CNNURSE Normal [facility] CBC W Auto Differential pane l (Bld)on 10-03-2022 Basophils (Bld) [#/Vol] 10*3/uL Normal <0.11 [facility] Comment on above: Order Comment: Speci men Type: BLOOD SPECIMENOrdering Facility: [facility] Address: [address] [place], [place] [address] Performed By: #### 5 7021-8 ####[facility] LABCLIA [id number] [place] [address] Basophils/100 WBC (Bld) 0.2 % Normal [facility] Comment on above: Order Comment: Speci men Type: BLOOD SPECIMENOrdering Facility: [facility] Address: [address] [place], [place] [address] Performed By: #### 5 7021-8 ####[facility] LABCLIA [id number] [place] [address] Differential cell count method Nom (Bld) Auto Normal [facility] Comment on above: Order Comment: Speci men Type: BLOOD SPECIMENOrdering Facility: [facility] Address: [address] [place] [address] Performed By: #### 5 7021-8 ####[facility] LABCLIA [id number] [place] [address] Eosinophils (Bld) [#/Vol] 0.11 10*3/uL Normal <0.46 [facility] Comment on above: Order Comment: Speci men Type: BLOOD SPECIMENOrdering Facility: [facility] Address: [address] [place] [address] Performed By: #### 5 7021-8 ####[facility] LABCLIA [id number] [place] [address] Eosinophils/100 WBC (Bld) 2.2 % Normal [facility] Comment on above: Order Comment: Speci men Type: BLOOD SPECIMENOrdering Facility: [facility] Address: [address] [place] [address] Performed By: #### 5 7021-8 ####[facility] LABCLIA [id number] [place] [address] Erythrocyte distribution width (RBC) [Ratio] 12.7 % Normal 11.5-15.0 [facility] Comment on above: Order Comment: Speci men Type: BLOOD SPECIMENOrdering Facility: [facility] Address: [address] [place] [address] Performed By: #### 5 7021-8 ####[facility] LABCLIA [id number] [place] [address] Hematocrit (Bld) [Volume fraction] 32.1 % Low 39.0-51.0 [facility] Comment on above: Order Comment: Speci men Type: BLOOD SPECIMENOrdering Facility: [facility] Address: [address] [place] [address] Performed By: #### 5 7021-8 ####[facility] LABCLIA [id number] [place] [address] Hemoglobin (Bld) [Mass/Vol] 10.2 g/dL Low 13.0-17.0 [facility] Comment on above: Order Comment: Speci men Type: BLOOD SPECIMENOrdering Facility: [facility] Address: [address] [place] [address] Performed By: #### 5 7021-8 ####[facility] LABCLIA [id number] [place] [address] Immature granulocytes (Bld) [#/Vol] 10*3/uL Normal <0.10 [facility] Comment on above: Order Comment: Speci men Type: BLOOD SPECIMENOrdering Facility: [facility] Address: [address] [place] [address] Performed By: #### 5 7021-8 ####[facility] LABCLIA [id number] [place] [address] Immature granulocytes/100 WBC (Bld) 0.2 % Normal [facility] Comment on above: Order Comment: Speci men Type: BLOOD SPECIMENOrdering Facility: [facility] Address: [address] [place] [address] Performed By: #### 5 7021-8 ####[facility] LABCLIA [id number] [place] [address] Lymphocytes (Bld) [#/Vol] 1.37 10*3/uL Normal 1.00-4.00 [facility] Comment on above: Order Comment: Speci men Type: BLOOD SPECIMENOrdering Facility: [facility] Address: [address] [place] [address] Performed By: #### 5 7021-8 ####[facility] LABCLIA [id number] [place] [address] Lymphocytes/100 WBC (Bld) 26.9 % Normal [facility] Comment on above: Order Comment: Speci men Type: BLOOD SPECIMENOrdering Facility: [facility] Address: [address] [address] Performed By: #### 5 7021-8 ####[facility] LABCLIA [id number] [place] [address] MCH (RBC) [Entitic mass] 29.7 pg Normal 26.0-34.0 [facility] Comment on above: Order Comment: Speci men Type: BLOOD SPECIMENOrdering Facility: [facility] Address: [address] [place] [address] Performed By: #### 5 7021-8 ####[facility] LABCLIA [id number] [place] [address] MCHC (RBC) [Mass/Vol] 31.8 g/dL Normal 30.5-36.0 [facility] Comment on above: Order Comment: Speci men Type: BLOOD SPECIMENOrdering Facility: [facility] Address: [address] [address] Performed By: #### 5 7021-8 ####[facility] LABIA [id number] [place] [address] MCV (RBC) [Entitic vol] 93.3 fL Normal 80.0-100.0 [facility] Comment on above: Order Comment: Speci men Type: BLOOD SPECIMENOrdering Facility: [facility] Address: [address] [place] [address] Performed By: #### 5 7021-8 ####[facility] LABIA [id number] [place] [address] Monocytes (Bld) [#/Vol] 0.39 10*3/uL Normal <0.87 [facility] Comment on above: Order Comment: Speci men Type: BLOOD SPECIMENOrdering Facility: [facility] Address: [address] [place] [address] Performed By: #### 5 7021-8 ####[facility] LABCLIA [id number] [place] [address] Monocytes/100 WBC (Bld) 7.6 % Normal [facility] Comment on above: Order Comment: Speci men Type: BLOOD SPECIMENOrdering Facility: [facility] Address: [address] [place] [address] Performed By: #### 5 7021-8 ####[facility] LABCLIA [id number] [place] [address] Neutrophils (Bld) [#/Vol] 3.21 10*3/uL Normal 1.45-7.50 [facility] Comment on above: Order Comment: Speci men Type: BLOOD SPECIMENOrdering Facility: [facility] Address: [address] [place] [address] Performed By: #### 5 7021-8 ####[facility] LABCLIA [id number] [place] [address] Neutrophils/100 WBC (Bld) 62.9 % Normal [facility] Comment on above: Order Comment: Speci men Type: BLOOD SPECIMENOrdering Facility: [facility] Address: [address] [place] [address] Performed By: #### 5 7021-8 ####[facility] LABCLIA [id number] [place] [address] Nucleated RBC (Bld) [#/Vol] 10*3/uL Normal <0.01 [facility] Comment on above: Order Comment: Speci men Type: BLOOD SPECIMENOrdering Facility: [facility] Address: [address] [place] [address] Performed By: #### 5 7021-8 ####[facility] LABCLIA [id number] [place] [address] Nucleated RBC/100 WBC (Bld) [Ratio] 0.0 /100 WBC Normal [facility] Comment on above: Order Comment: Speci men Type: BLOOD SPECIMENOrdering Facility: [facility] Address: [address] [place] [address] Performed By: #### 5 7021-8 ####[facility] LABIA [id number] [place] [address] Platelet mean volume (Bld) [Entitic vol] 9.1 fL Normal 9.0-12.7 [facility] Comment on above: Order Comment: Speci men Type: BLOOD SPECIMENOrdering Facility: [facility] Address: [address] [place] [address] Performed By: #### 5 7021-8 ####[facility] LABCLIA [id number] [place] [address] Platelets (Bld) [#/Vol] 267 10*3/uL Normal 150-400 [facility] Comment on above: Order Comment: Speci men Type: BLOOD SPECIMENOrdering Facility: [facility] Address: [address] [place] [address] Performed By: #### 5 7021-8 ####[facility] LABCLIA [id number] [place] [address] RBC (Bld) [#/Vol] 3.44 10*6/uL Low 4.20-6.00 [facility] Comment on above: Order Comment: Speci men Type: BLOOD SPECIMENOrdering Facility: [facility] Address: [address] [place] [address] Performed By: #### 5 7021-8 ####[facility] LABCLIA [id number] [place] [address] WBC (Bld) [#/Vol] 5.10 10*3/uL Normal 3.70-11.00 [facility] Comment on above: Order Comment: Speci men Type: BLOOD SPECIMENOrdering Facility: [facility] Address: [address] [place] [address] Performed By: #### 5 7021-8 ####[facility] LABCLIA [id number] [place] [address] CNNURSEon 10-03-2022 CNNURSE Normal [facility] CNOVSPon 10-03-2022 CNOVSP Normal [facility] Comprehensive metabolic 2000 panelon 10-03-2022 Albumin [Mass/Vol] 3.7 g/dL Low 3.9-4.9 [facility] Comment on above: Order Comment: Speci men Type: BLOOD SPECIMENOrdering Facility: [facility] Address: [address] [place] [address] Performed By: #### 2 4323-8 ####[facility] LABCLIA [id number] [place] [address] ALP [Catalytic activity/Vol] 152 U/L High 38-113 [facility] Comment on above: Order Comment: Speci men Type: BLOOD SPECIMENOrdering Facility: [facility] Address: [address] [place] [address] Performed By: #### 2 4323-8 ####[facility] LABCLIA [id number] [place] [address] ALT [Catalytic activity/Vol] 26 U/L Normal 10-54 [facility] Comment on above: Order Comment: Speci men Type: BLOOD SPECIMENOrdering Facility: [facility] Address: [address] [place] [address] Performed By: #### 2 4323-8 ####[facility] LABCLIA [id number] [place] [address] Anion gap [Moles/Vol] 10 mmol/L Normal 9-18 [facility] Comment on above: Order Comment: Speci men Type: BLOOD SPECIMENOrdering Facility: [facility] Address: [address] [place] [address] Performed By: #### 2 4323-8 ####[facility] LABCLIA [id number] [place] [address] AST [Catalytic activity/Vol] 16 U/L Normal 14-40 [facility] Comment on above: Order Comment: Speci men Type: BLOOD SPECIMENOrdering Facility: [facility] Address: [address] [address] Performed By: #### 2 4323-8 ####[facility] LABCLIA [id number] [place] [address] Bilirubin [Mass/Vol] 0.2 mg/dL Normal 0.2-1.3 [facility] Comment on above: Order Comment: Speci men Type: BLOOD SPECIMENOrdering Facility: [facility] Address: [address] [address] Performed By: #### 2 4323-8 ####[facility] LABCLIA [id number] [place] [address] Calcium [Mass/Vol] 9.1 mg/dL Normal 8.5-10.2 [facility] Comment on above: Order Comment: Speci men Type: BLOOD SPECIMENOrdering Facility: [facility] Address: [address] [address] Performed By: #### 2 4323-8 ####[facility] LABCLIA [id number] [place] [address] Chloride [Moles/Vol] 102 mmol/L Normal 97-105 [facility] Comment on above: Order Comment: Speci men Type: BLOOD SPECIMENOrdering Facility: [facility] Address: [address] [address] Performed By: #### 2 4323-8 ####[facility] LABCLIA [id number] [place] [address] CO2 [Moles/Vol] 19 mmol/L Low 22-30 [facility] Comment on above: Order Comment: Speci men Type: BLOOD SPECIMENOrdering Facility: [facility] Address: [address] [address] Performed By: #### 2 4323-8 ####[facility] LABCLIA [id number] [place] [address] Creatinine [Mass/Vol] 0.76 mg/dL Normal 0.73-1.22 [facility] Comment on above: Order Comment: Frank real Type: BLOOD SPECIMENOrdering Facility: [facility] Address: [address] [place] [address] Performed By: #### 2 4323-8 ####[facility] LABCLIA [id number] [place] [address] ESTIMATED GLOMERULAR FILTRATION RATE 100 mL/min/1.73m??? Normal >=60 [facility] Comment on above: Order Comment: Frank real Type: BLOOD SPECIMENOrdering Facility: [facility] Address: [address] [place] [address] Result Comment: Megan mated Glomerular Filtration Rate (eGFR) is calculated using the 2020 CKD-EPI creatinine equation. This equation utilizes serum creatinine, sex, and age as parameters. The creatinine assay has traceable calibration to isotope dilution-mass spectrometry. Refer to KDIGO guidelines for clinical interpretation. In patients with unstable renal function, e.g. those with acute kidney injury, the eGFR may not accurately reflect actual GFR. Performed By: #### 2 4323-8 ####[facility] LABCLIA [id number] [place] [address] Glucose [Mass/Vol] 470 mg/dL High 74-99 [facility] Comment on above: Order Comment: Frank real Type: BLOOD SPECIMENOrdering Facility: [facility] Address: [address] [place] [address] Result Comment: The [place] [employer] (ADA) provides guidance for cutoff values for fasting glucose and random glucose. The ADA defines fasting as no caloric intake for at least 8 hours. Fasting plasma glucose results between 100 to 125 mg/dL indicate increased risk for diabetes (prediabetes).Fasting plasma glucose results greater than or equal to 126 mg/dL meet the criteria for diagnosis of diabetes. In the absence of unequivocal hyperglycemia, results should be confirmed by repeat testing. In a patient with classic symptoms of hyperglycemia or hyperglycemic crisis, random plasma glucose results greater than or equal to 200 mg/dL meet the criteria for diagnosis of diabetes.Reference: Standards of Medical Care in Diabetes 2016, [place] [employer]. Diabetes Care. 2016.39(Suppl 1). Performed By: #### 2 4323-8 ####[facility] LABCLIA [id number] [place] [address] Potassium [Moles/Vol] 5.1 mmol/L Normal 3.7-5.1 [facility] Comment on above: Order Comment: Speci men Type: BLOOD SPECIMENOrdering Facility: [facility] Address: [address] [address] Performed By: #### 2 4323-8 ####[facility] LABCLIA [id number] [place] [address] Protein [Mass/Vol] 7.1 g/dL Normal 6.3-8.0 [facility] Comment on above: Order Comment: Speci men Type: BLOOD SPECIMENOrdering Facility: [facility] Address: [address] [address] Performed By: #### 2 4323-8 ####[facility] LABCLIA [id number] [place] [address] Sodium [Moles/Vol] 131 mmol/L Low 136-144 [facility] Comment on above: Order Comment: Speci men Type: BLOOD SPECIMENOrdering Facility: [facility] Address: [address] [address] Performed By: #### 2 4323-8 ####[facility] LABCLIA [id number] [place] [address] Urea nitrogen [Mass/Vol] 24 mg/dL Normal 9-24 [facility] Comment on above: Order Comment: Speci men Type: BLOOD SPECIMENOrdering Facility: [facility] Address: [address] [address] Performed By: #### 2 4323-8 ####[facility] LABCLIA [id number] [place] [address] Ferritin SerPl-mCncon 2022 Ferritin [Mass/Vol] 308.0 ng/mL Normal 30.3-565.7 [facility] Comment on above: Order Comment: Speci men Type: BLOOD SPECIMENOrdering Facility: [facility] Address: [address] [place] [address] Performed By: #### 5 0190-8, 9, 2275-4, 8 ####[facility] LABCLIA [id number] [place] [address] [place] Folate SerPl-mCncon 10-04-19 Folate [Mass/Vol] 11.6 ng/mL Normal >4.7 [facility] Comment on above: Order Comment: Speci men Type: BLOOD SPECIMENOrdering Facility: [facility] Address: [address] [place] [address] Performed By: #### 5 0190-8, 9, 4, 8 ####[facility] LABIA [id number] [place] [address] [place] Iron and Iron binding capaci ty panelon 10-03-2022 Iron [Mass/Vol] 39 ug/dL Low 41-186 [facility] Comment on above: Order Comment: Speci men Type: BLOOD SPECIMENOrdering Facility: [facility] Address: [address] [place] [address] Performed By: #### 5 0190-8, 9, 4, 8 ####[facility] LABIA [id number] [place] [address] [place] Iron binding capacity [Mass/Vol] 226 ug/dL Low 232-386 [facility] Comment on above: Order Comment: Speci men Type: BLOOD SPECIMENOrdering Facility: [facility] Address: [address] [place] [address] Performed By: #### 5 0190-8, 9, 4, 2284-01 ####[facility] LABCLIA [id number] [address] [place] [id number] [place] Iron/TIBC [Molar ratio] 17.3 % Normal 15.0-57.0 [facility] Comment on above: Order Comment: Speci men Type: BLOOD SPECIMENOrdering Facility: [facility] Address: [address] Performed By: #### 5 0190-8, 9, 2275-09, 2284-01 ####[facility] LABIA [id number] [address] [id number] [place] Vit B12 [facility] 04-07-2 023 Cobalamin (Vitamin B12) [Mass/Vol] 1009 pg/mL Normal 232-1245 [facility] Comment on above: Order Comment: Speci men Type: BLOOD SPECIMENOrdering Facility: [facility] Address: [address] [address] Performed By: #### 5 0190-8, 9, 2275-09, 2284-01 ####[facility] LABCLIA [id number] [address] [place] Office Visit (Cardiology)on 09-16-2022 Follow-up visit Diagnoses/Problems Assessed Arteriosclerosis of carotid artery (433.10) (I65.29) 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 Prescriptions will not be filled unless you are compliant with your follow up appointments or have a follow up appointment scheduled as per instruction of your physician. Refills should be requested at the time of your visit. Fall prevention education given Follow up in 1 year Chief Complaint ROCIO JACKSON is being seen for follow-up of a hospitalization for. 67-year-old gentleman who returns for follow-up, with recent hospitalization in June at [facility] for atypical chest pain, anxiety, rate controlled A-fib with a history of gastric cancer, pancytopenia, generalized frailty and weakness. Details of the discharge summary are reviewed. He had elevated NT proBNP at 3600 consistent with heart failure. LDL cholesterol was 36, white count was 3.8, hemoglobin 9.3 platelet count 259,000, hemoglobin A1c 6.1%, and chest x-ray report revealing essentially no acute infiltrative process or cardiac decompensation (no radiographic evidence for heart failure). His chief complaint was noted for chest pressure-like sensation. Patient does have a history of prior MD and stenting in 2010 due to an anterior MD with two 4 x 18 and 4 x 12 mm Xience stents, at the time with severe LV dysfunction. Follow-up stress perfusion imaging in 2017 revealed improved left ventricular function with ejection fraction of 40% and anteroseptal scar. Patient does have a history of gastric cancer with Whipple procedure with no clinical recurrence of cancer. He does have a history of paroxysmal A-fib and remains on low-dose Eliquis, ECG from June 2022 [facility] admission is noted for sinus rhythm He is otherwise frail, we can debilitated on tolerable guideline directed medical therapies as reviewed Recommendations we will continue current therapies follow-up within the next year Surgical History Problems History of Cholecystectomy History of Complete colonoscopy Managed By: Earnest Hernandez MD (Gastroenterology) History of Esophagogastroduodenoscopy History of Percutaneous transluminal coronary angioplasty Current Meds Medication NameInstruction Atorvastatin Calcium 40 MG Oral TabletTAKE ONE TABLET BY MOUTH AT BEDTIME Creon 093[address]-33325 UNIT Oral Capsule Delayed Release Particles1 tablet 3 times daily before meals Eliquis 2.5 MG Oral TabletTake one tablet by mouth twice a day FLUoxetine HCl - 20 MG Oral TabletTAKE 1 TABLET DAILY. Metoprolol Succinate ER 25 MG Oral Tablet Extended Release 24 HourTAKE 1 TABLET DAILY. Nitroglycerin 0.4 MG Sublingual Tablet SublingualPLACE 1 TABLET UNDER THE TONGUE EVERY 5 MINUTES FOR UP TO 3 DOSES NEEDED FOR CHEST PAIN.CALL 911 IF PAIN PERSISTS. Reglan 10 MG Oral TabletTAKE 1 TABLET 3 TIMES DAILY BEFORE MEALS. Vitamin D3 1.25 MG (18159 UT) Oral CapsuleTAKE 1 CAPSULE Daily Xanax 0.25 MG Oral TabletTAKE 1 TABLET EVERY 12 HOURS NEEDED. Allergies Medication OPHELIA Inhibitors Recorded By: Mackenzie Solis; 07/02/2021 10:36:00 AM Social History Problems Caffeine use (V49.89) (Z78.9) Former smoker (V15.82) (Z87.891) No alcohol use No illicit drug use Review of Systems Constitutional: not feeling tired. Cardiovascular: chest pain, but no intermittent leg claudication and as noted in HPI. Respiratory: shortness of breath during exertion, but no cough and no shortness of breath. Gastrointestinal: no change in bowel habits and no blood in stools. Integumentary: no skin rashes. Neurological: no seizures and no frequent falls. All other systems have been reviewed and are negative for complaint. Vitals Vital Signs Recorded: 16Sep2022 11:33AM Heart Rate78, L Radial Pvbyknmf502, LUE, Sitting Yhcbiqqgq30, LUE, Sitting Height5 ft 8 in Jbdebl365 lb BMI Rgxihexlfl49.05 kg/m2 BSA Calculated1.78 Tobacco Useb) No PHQ-2 #1. Over the last 2 weeks have you felt down, depressed or hopeless? (If yes, answer PHQ-9 below)No PHQ-2 #2. Over the last 2 weeks have you felt little interest or pleasure in doing things? (If yes, answer PHQ-9 below)No Falls Screening (Age 18+)b) One or more falls in the last year Physical Exam Constitutional: alert and in no acute distress. Neck: neck is supple, symmetric, trachea midline, no masses and no thyromegaly . Pulmonary: no increased work of breathing or signs of respiratory distress and lungs clear to auscultation. Cardiovascul (more content not included)... Normal [employer] CNNURSEon 09-05-2022 CNNURSE Normal [facility] CBC W Auto Differential pane l (Bld)on 08-08-2022 Basophils (Bld) [#/Vol] 10*3/uL Normal <0.11 [facility] Comment on above: Order Comment: Speci men Type: BLOOD SPECIMENOrdering Facility: [facility] Address: [address] [place] [address] Performed By: #### 5 7021-8 ####[facility] LABCLIA [id number] [place] [address] Basophils/100 WBC (Bld) 0.2 % Normal [facility] Comment on above: Order Comment: Speci men Type: BLOOD SPECIMENOrdering Facility: [facility] Address: [address] [place] [address] Performed By: #### 5 7021-8 ####[facility] LABCLIA [id number] [place] [address] Differential cell count method Nom (Bld) Auto Normal [facility] Comment on above: Order Comment: Speci men Type: BLOOD SPECIMENOrdering Facility: [facility] Address: [address] [place] [address] Performed By: #### 5 7021-8 ####[facility] LABCLIA [id number] [place] [address] Eosinophils (Bld) [#/Vol] 0.18 10*3/uL Normal <0.46 [facility] Comment on above: Order Comment: Speci men Type: BLOOD SPECIMENOrdering Facility: [facility] Address: [address] [place] [address] Performed By: #### 5 7021-8 ####[facility] LABCLIA [id number] [place] [address] Eosinophils/100 WBC (Bld) 3.8 % Normal [facility] Comment on above: Order Comment: Speci men Type: BLOOD SPECIMENOrdering Facility: [facility] Address: [address] [place], [place] [id number] Performed By: #### 5 7021-8 ####[facility] LABCLIA [id number] [place] [address] Erythrocyte distribution width (RBC) [Ratio] 12.5 % Normal 11.5-15.0 [facility] Comment on above: Order Comment: Speci men Type: BLOOD SPECIMENOrdering Facility: [facility] Address: [address] [place] [address] Performed By: #### 5 7021-8 ####[facility] LABCLIA [id number] [place] [address] Hematocrit (Bld) [Volume fraction] 32.5 % Low 39.0-51.0 [facility] Comment on above: Order Comment: Speci men Type: BLOOD SPECIMENOrdering Facility: [facility] Address: [address] [place] [address] Performed By: #### 5 7021-8 ####[facility] LABIA [id number] [place] [address] Hemoglobin (Bld) [Mass/Vol] 10.1 g/dL Low 13.0-17.0 [facility] Comment on above: Order Comment: Speci men Type: BLOOD SPECIMENOrdering Facility: [facility] Address: [address] [place] [address] Performed By: #### 5 7021-8 ####[facility] LABCLIA [id number] [place] [address] Immature granulocytes (Bld) [#/Vol] 10*3/uL Normal <0.10 [facility] Comment on above: Order Comment: Speci men Type: BLOOD SPECIMENOrdering Facility: [facility] Address: [address] [place] [address] Performed By: #### 5 7021-8 ####[facility] LABIA [id number] [place] [address] Immature granulocytes/100 WBC (Bld) 0.4 % Normal [facility] Comment on above: Order Comment: Speci men Type: BLOOD SPECIMENOrdering Facility: [facility] Address: [address] [place] [address] Performed By: #### 5 7021-8 ####[facility] LABCLIA [id number] [place] [address] Lymphocytes (Bld) [#/Vol] 1.03 10*3/uL Normal 1.00-4.00 [facility] Comment on above: Order Comment: Speci men Type: BLOOD SPECIMENOrdering Facility: [facility] Address: [address] [place] [address] Performed By: #### 5 7021-8 ####[facility] LABCLIA [id number] [place] [address] Lymphocytes/100 WBC (Bld) 22.0 % Normal [facility] Comment on above: Order Comment: Speci men Type: BLOOD SPECIMENOrdering Facility: [facility] Address: [address] [place] [address] Performed By: #### 5 7021-8 ####[facility] LABCLIA [id number] [place] [address] MCH (RBC) [Entitic mass] 31.9 pg Normal 26.0-34.0 [facility] Comment on above: Order Comment: Speci men Type: BLOOD SPECIMENOrdering Facility: [facility] Address: [address] [place] [address] Performed By: #### 5 7021-8 ####[facility] LABIA [id number] [place] [address] MCHC (RBC) [Mass/Vol] 31.1 g/dL Normal 30.5-36.0 [facility] Comment on above: Order Comment: Speci men Type: BLOOD SPECIMENOrdering Facility: [facility] Address: [address] [place] [address] Performed By: #### 5 7021-8 ####[facility] LABCLIA [id number] [place] [address] MCV (RBC) [Entitic vol] 102.5 fL High 80.0-100.0 [facility] Comment on above: Order Comment: Speci men Type: BLOOD SPECIMENOrdering Facility: [facility] Address: [address] [place] [address] Performed By: #### 5 7021-8 ####[facility] LABCLIA [id number] [place] [address] Monocytes (Bld) [#/Vol] 0.41 10*3/uL Normal <0.87 [facility] Comment on above: Order Comment: Speci men Type: BLOOD SPECIMENOrdering Facility: [facility] Address: [address] [place] [address] Performed By: #### 5 7021-8 ####[facility] LABCLIA [id number] [place] [address] Monocytes/100 WBC (Bld) 8.8 % Normal [facility] Comment on above: Order Comment: Speci men Type: BLOOD SPECIMENOrdering Facility: [facility] Address: [address] [place] [address] Performed By: #### 5 7021-8 ####[facility] LABCLIA [id number] [place] [address] Neutrophils (Bld) [#/Vol] 3.03 10*3/uL Normal 1.45-7.50 [facility] Comment on above: Order Comment: Speci men Type: BLOOD SPECIMENOrdering Facility: [facility] Address: [address] [place] [address] Performed By: #### 5 7021-8 ####[facility] LABCLIA [id number] [place] [address] Neutrophils/100 WBC (Bld) 64.8 % Normal [facility] Comment on above: Order Comment: Speci men Type: BLOOD SPECIMENOrdering Facility: [facility] Address: [address] [address] Performed By: #### 5 7021-8 ####[facility] LABCLIA [id number] [place] [address] Nucleated RBC (Bld) [#/Vol] 10*3/uL Normal <0.01 [facility] Comment on above: Order Comment: Speci men Type: BLOOD SPECIMENOrdering Facility: [facility] Address: [address] [address] Performed By: #### 5 7021-8 ####[facility] LABCLIA [id number] [place] [address] Nucleated RBC/100 WBC (Bld) [Ratio] 0.0 /100 WBC Normal [facility] Comment on above: Order Comment: Speci men Type: BLOOD SPECIMENOrdering Facility: [facility] Address: [address] [address] Performed By: #### 5 7021-8 ####[facility] LABCLIA [id number] [place] [address] Platelet mean volume (Bld) [Entitic vol] 9.1 fL Normal 9.0-12.7 [facility] Comment on above: Order Comment: Speci men Type: BLOOD SPECIMENOrdering Facility: [facility] Address: [address] [address] Performed By: #### 5 7021-8 ####[facility] LABCLIA [id number] [place] [address] Platelets (Bld) [#/Vol] 278 10*3/uL Normal 150-400 [facility] Comment on above: Order Comment: Speci men Type: BLOOD SPECIMENOrdering Facility: [facility] Address: [address] [address] Performed By: #### 5 7021-8 ####[facility] LABCLIA [id number] [place] [address] RBC (Bld) [#/Vol] 3.17 10*6/uL Low 4.20-6.00 [facility] Comment on above: Order Comment: Speci men Type: BLOOD SPECIMENOrdering Facility: [facility] Address: [address] [place] [address] Performed By: #### 5 7021-8 ####[facility] LABIA [id number] [place] [address] WBC (Bld) [#/Vol] 4.68 10*3/uL Normal 3.70-11.00 [facility] Comment on above: Order Comment: Speci men Type: BLOOD SPECIMENOrdering Facility: [facility] Address: [address] [place] [address] Performed By: #### 5 7021-8 ####[facility] [id number] [place] [address] CNNURSEon 08-08-2022 CNNURSE Normal [facility] CNOVSPon 08-08-2022 CNOVSP Normal [facility] CNPNon 08-08-2022 CNPN Normal [facility] Comprehensive metabolic 2000 panelon 08-08-2022 Albumin [Mass/Vol] 3.9 g/dL Normal 3.9-4.9 [facility] Comment on above: Order Comment: Speci men Type: BLOOD SPECIMENOrdering Facility: [facility] Address: [address] [place] [address] Performed By: #### 2 4323-8 ####[facility] LABIA [id number] [place] [address] ALP [Catalytic activity/Vol] 146 U/L High 38-113 [facility] Comment on above: Order Comment: Speci men Type: BLOOD SPECIMENOrdering Facility: [facility] Address: [address] [place] [address] Performed By: #### 2 4323-8 ####[facility] LABCLIA [id number] [place] [address] ALT [Catalytic activity/Vol] 36 U/L Normal 10-54 [facility] Comment on above: Order Comment: Speci men Type: BLOOD SPECIMENOrdering Facility: [facility] Address: [address] [place] [address] Performed By: #### 2 4323-8 ####[facility] LABCLIA [id number] [place] [address] Anion gap [Moles/Vol] 9 mmol/L Normal 9-18 [facility] Comment on above: Order Comment: Speci men Type: BLOOD SPECIMENOrdering Facility: [facility] Address: [address] [place] [address] Performed By: #### 2 4323-8 ####[facility] LABCLIA [id number] [place] [address] AST [Catalytic activity/Vol] 34 U/L Normal 14-40 [facility] Comment on above: Order Comment: Speci men Type: BLOOD SPECIMENOrdering Facility: [facility] Address: [address] [place] [address] Performed By: #### 2 4323-8 ####[facility] LABCLIA [id number] [place] [address] Bilirubin [Mass/Vol] 0.3 mg/dL Normal 0.2-1.3 [facility] Comment on above: Order Comment: Speci men Type: BLOOD SPECIMENOrdering Facility: [facility] Address: [address] [place] [address] Performed By: #### 2 4323-8 ####[facility] LABCLIA [id number] [place] [address] Calcium [Mass/Vol] 9.4 mg/dL Normal 8.5-10.2 [facility] Comment on above: Order Comment: Speci men Type: BLOOD SPECIMENOrdering Facility: [facility] Address: [address] [address] Performed By: #### 2 4323-8 ####[facility] LABCLIA [id number] [place] [address] Chloride [Moles/Vol] 104 mmol/L Normal 97-105 [facility] Comment on above: Order Comment: Speci men Type: BLOOD SPECIMENOrdering Facility: [facility] Address: [address] [place] [address] Performed By: #### 2 4323-8 ####[facility] LABCLIA [id number] [place] [address] CO2 [Moles/Vol] 19 mmol/L Low 22-30 [facility] Comment on above: Order Comment: Speci men Type: BLOOD SPECIMENOrdering Facility: [facility] Address: [address] [place] [address] Performed By: #### 2 4323-8 ####[facility] LABCLIA [id number] [place] [address] Creatinine [Mass/Vol] 0.85 mg/dL Normal 0.73-1.22 [facility] Comment on above: Order Comment: Speci men Type: BLOOD SPECIMENOrdering Facility: [facility] Address: [address] [place] [address] Performed By: #### 2 4323-8 ####[facility] LABCLIA [id number] [place] [address] ESTIMATED GLOMERULAR FILTRATION RATE 96 mL/min/1.73m??? Normal >=60 [facility] Comment on above: Order Comment: Speci men Type: BLOOD SPECIMENOrdering Facility: [facility] Address: [address] [place] [address] Result Comment: Megan mated Glomerular Filtration Rate (eGFR) is calculated using the 2020 CKD-EPI creatinine equation. This equation utilizes serum creatinine, sex, and age as parameters. The creatinine assay has traceable calibration to isotope dilution-mass spectrometry. Refer to KDIGO guidelines for clinical interpretation. In patients with unstable renal function, e.g. those with acute kidney injury, the eGFR may not accurately reflect actual GFR. Performed By: #### 2 4323-8 ####[facility] LABCLIA [id number] [place] [address] Glucose [Mass/Vol] 501 mg/dL High 74-99 [facility] Comment on above: Order Comment: Specabiola men Type: BLOOD SPECIMENOrdering Facility: [facility] Address: [address] [id number] Result Comment: The [place] [employer] (ADA) provides guidance for cutoff values for fasting glucose and random glucose. The ADA defines fasting as no caloric intake for at least 8 hours. Fasting plasma glucose results between 100 to 125 mg/dL indicate increased risk for diabetes (prediabetes).Fasting plasma glucose results greater than or equal to 126 mg/dL meet the criteria for diagnosis of diabetes. In the absence of unequivocal hyperglycemia, results should be confirmed by repeat testing. In a patient with classic symptoms of hyperglycemia or hyperglycemic crisis, random plasma glucose results greater than or equal to 200 mg/dL meet the criteria for diagnosis of diabetes.Reference: Standards of Medical Care in Diabetes 2016, [place] [employer]. Diabetes Care. 2016.39(Suppl 1). Performed By: #### 2 4323-8 ####[facility] LABCLIA [id number] [place] [address] Potassium [Moles/Vol] 5.4 mmol/L High 3.7-5.1 [facility] Comment on above: Order Comment: Frank real Type: BLOOD SPECIMENOrdering Facility: [facility] Address: [address] [place] [address] Performed By: #### 2 4323-8 ####[facility] LABCLIA [id number] [place] [address] Protein [Mass/Vol] 7.4 g/dL Normal 6.3-8.0 [facility] Comment on above: Order Comment: Frank men Type: BLOOD SPECIMENOrdering Facility: [facility] Address: [address] [address] Performed By: #### 2 4323-8 ####[facility] LABCLIA [id number] [place] [address] Sodium [Moles/Vol] 132 mmol/L Low 136-144 [facility] Comment on above: Order Comment: Speci men Type: BLOOD SPECIMENOrdering Facility: [facility] Address: [address] [address] Performed By: #### 2 4323-8 ####[facility] LABCLIA [id number] [place] [address] Urea nitrogen [Mass/Vol] 29 mg/dL High 9-24 [facility] Comment on above: Order Comment: Speci men Type: BLOOD SPECIMENOrdering Facility: [facility] Address: [address] [address] Performed By: #### 2 4323-8 ####[facility] LABCLIA [id number] [place] [address] Ferritin SerPl-mCncon 2022 Ferritin [Mass/Vol] 409.0 ng/mL Normal 30.3-565.7 [facility] Comment on above: Order Comment: Speci men Type: BLOOD SPECIMENOrdering Facility: [facility] Address: [address] [address] Performed By: #### 5 0190-8, 9, 6-4, 2284-8 ####[facility] LABCLIA [id number] [facility] [id number] [address] [place] Folate SerPl-mCncon 08-08-19 23 Folate [Mass/Vol] 8.4 ng/mL Normal >4.7 [facility] Comment on above: Order Comment: Speci men Type: BLOOD SPECIMENOrdering Facility: [facility] Address: [address] [address] Performed By: #### 5 0190-8, 2132-02, 2275-09, 2284-01 ####[facility] LABIA [id number] [address] [id number] [place] Iron and Iron binding capaci ty panelon 08-08-2022 Iron [Mass/Vol] 35 ug/dL Low 41-186 [facility] Comment on above: Order Comment: Speci men Type: BLOOD SPECIMENOrdering Facility: [facility] Address: [address] [place] [address] Performed By: #### 5 0190-8, 9, 2275-09, 2284-01 ####[facility] [id number] [place] [address] [place] Iron binding capacity [Mass/Vol] 253 ug/dL Normal 232-386 [facility] Comment on above: Order Comment: Speci men Type: BLOOD SPECIMENOrdering Facility: [facility] Address: [address] [place] [address] Performed By: #### 5 0190-8, 9, 2275-09, 2284-01 ####[facility] [id number] [place] [address] [place] Iron/TIBC [Molar ratio] 13.8 % Low 15.0-57.0 [facility] Comment on above: Order Comment: Speci men Type: BLOOD SPECIMENOrdering Facility: [facility] Address: [address] [place] [address] Performed By: #### 5 0190-8, 9, 2275-09, 2284-01 ####[facility] [id number] [address] [id number] [place] Vit B12 SerPl-mCncon 023 Cobalamin (Vitamin B12) [Mass/Vol] 821 pg/mL Normal 232-1245 [facility] Comment on above: Order Comment: Speci men Type: BLOOD SPECIMENOrdering Facility: [facility] Address: [address] [place], [place] [address] [address] Performed By: #### 5 0190-8, 2132-9, 2276-4, 2284-8 ####[facility] LABCLIA [id number] LASHANDA MORRIS [address] [place] BNPon 07-12-2022 Natriuretic peptide B (Bld) [Mass/Vol] 3610.0 pg/mL Critically high <=900.0 [facility] Comment on above: Performed By: #### P T, PTT #### [facility] [address] [place] [address] Dr. Mel Barrientos CBC AUTO DIFFon 07-12-2022 BASO # 0.0 103/ul Normal 0.0-0.1 [facility] Comment on above: Performed By: #### C BC #### [facility] [address] [place] [address] Dr. Mel Barrientos Basophils/100 WBC (Bld) 0.4 % Normal 0.2-2.0 [facility] Comment on above: Performed By: #### C BC #### [facility] [address] [place] [address] Dr. Mel Barrientos EO # 0.1 103/ul Normal 0.0-0.7 [facility] Comment on above: Performed By: #### C BC #### [facility] [address] [place] [address] Dr. Mel Barrientos Eosinophils/100 WBC (Bld) 3.5 % Normal 0.9-7.0 [facility] Comment on above: Performed By: #### C BC #### [facility] [address] [place] [address] Dr. Mel Barrientos Erythrocyte distribution width (RBC) [Ratio] 12.9 % Normal 11.0-15.0 [facility] Comment on above: Performed By: #### C BC #### [facility] [address] [place] [address] Dr. Mel Barrientos Hematocrit (Bld) [Volume fraction] 25.4 % Critically low 42.0-54.0 [facility] Comment on above: Performed By: #### C BC #### [facility] [address] [place] [address] Dr. Mel Barrientos Hemoglobin (Bld) [Mass/Vol] 8.3 g/dL Critically low 14.0-18.0 [facility] Comment on above: Performed By: #### C BC #### [facility] [address] [place] [address] Dr. Mel Barrientos IG # 0.00 10e3/ul Normal 0.00-0.03 [facility] Comment on above: Performed By: #### C BC #### [facility] [address] [place] [address] Dr. Mel Barrientos IG % 0.0 % Normal 0.0-0.5 [facility] Comment on above: Performed By: #### C BC #### [facility] [address] [place] [address] Dr. Mel Barrientos LYMPH # 1.0 103/ul Critically low 1.2-3.8 [facility] Comment on above: Performed By: #### C BC #### [facility] [address] [place] [address] Dr. Mel Barrientos Lymphocytes/100 WBC (Bld) 35.0 % Normal 20.5-60.0 [facility] Comment on above: Performed By: #### C BC #### [facility] [address] [place] [address] Dr. Mel Barrientos MANUAL DIFF REQ NO Normal [facility] Comment on above: Performed By: #### C BC #### [facility] [address] [place] [address] Dr. Mel Barrientos MCH (RBC) [Entitic mass] 33.5 pg Normal 25.9-34.0 [facility] Comment on above: Performed By: #### C BC #### [facility] [address] [place] [address] Dr. Mel Barrientos MCHC (RBC) [Mass/Vol] 32.7 g/dL Normal 29.9-35.2 [facility] Comment on above: Performed By: #### C BC #### [facility] [address] [address] [address] Mel Barrientos MCV (RBC) [Entitic vol] 102.4 fL Critically high 80.0-94.0 [facility] Comment on above: Performed By: #### C BC #### [facility] [address] [address] [address] Mel Barrientos MONO # 0.5 103/ul Normal 0.3-0.8 [facility] Comment on above: Performed By: #### C BC #### [facility] [address] [place] [address] Dr. Mel Barrientos Monocytes/100 WBC (Bld) 18.7 % Critically high 1.7-12.0 [facility] Comment on above: Performed By: #### C BC #### [facility] [address] [place] [address] Dr. Mel Barrientos NEUT # 1.2 103/ul Critically low 1.4-6.5 [facility] Comment on above: Performed By: #### C BC #### [facility] [address] [place] [address] Dr. Mel Barrientos Neutrophils/100 WBC (Bld) 42.4 % Critically low 43.0-75.0 [facility] Comment on above: Performed By: #### C BC #### [facility] [address] [place] [address] Dr. Mel Barrientos Platelet mean volume (Bld) [Entitic vol] 8.6 fL Critically low 9.5-13.5 [facility] Comment on above: Performed By: #### C BC #### [facility] [address] [place] [address] Dr. Mel Barrientos PLT 208 103/ul Normal 150-450 [facility] Comment on above: Performed By: #### C BC #### [facility] [address] [place] [address] Dr. Mel Barrientos RBC 2.48 106/ul Critically low 4.70-6.10 [facility] Comment on above: Performed By: #### C BC #### [facility] [address] [address] [address] Mel Barrientos WBC 2.8 103/ul Critically low 4.0-11.0 [facility] Comment on above: Performed By: #### C BC #### [facility] [address] [address] [address] Mel Barrientos LIPID PROFILEon 07-12-2022 CHOL-HDL RATIO NORM SEE BELOW Normal [facility] Comment on above: Result Comment: 3.3 - 4.4 LOW RISK 4.4 - 7.1 AVERAGE RISK 7.1 - 11.0 MODERATE RISK >11.0 HIGH RISK Performed By: #### P T, PTT #### [facility] [address] [place] [address] Dr. Mel Barrientos Cholesterol [Mass/Vol] 74 mg/dL Normal <=200 [facility] Comment on above: Performed By: #### P T, PTT #### [facility] [address] [address] [address] Mel Barrientos Cholesterol in HDL [Mass/Vol] 24 mg/dL Critically low 40-60 [facility] Comment on above: Performed By: #### P T, PTT #### [facility] [address] [address] [address] Mel Barrientos Cholesterol in LDL [Mass/Vol] 36.8 mg/dL Normal [facility] Comment on above: Performed By: #### P T, PTT #### [facility] [address] [address] [address] Mel Barrientos Cholesterol.total/Cho lesterol in HDL [Mass ratio] 3.1 {ratio} Normal [facility] Comment on above: Performed By: #### P T, PTT #### [facility] [address] [address] [address] Mel Barrientos HDL NORMAL > or = 60 mg/dl - LO W CARDIOVASCULAR RISK <40 mg/dl - HIGH CARDIOVASCULAR RISK Normal [facility] Comment on above: Performed By: #### P T, PTT #### [facility] [address] [place] [address] Dr. Mel Barrientos LDL CALC NORMAL SEE BELOW Normal [facility] Comment on above: Result Comment: <100 mg/dl OPTIMAL 100 - 129 mg/dl NEAR OR ABOVE OPTIMAL 130 - 159 mg/dl BORDERLINE HIGH 160 - 189 mg/dl HIGH >190 mg/dl VERY HIGH Performed By: #### P T, PTT #### [facility] [address] [place] [address] Dr. Mel Barrientos Triglyceride [Mass/Vol] 66 mg/dL Normal <=150 [facility] Comment on above: Performed By: #### P T, PTT #### [facility] [address] [place] [address] Dr. Mel Barrientos VLDL CALC 13.2 mg/dL Normal [facility] Comment on above: Performed By: #### P T, PTT #### [facility] [address] [place] [address] Dr. Mel Barrientos PROF 14(COMP METB)on 023 Albumin [Mass/Vol] 2.7 g/dL Critically low 3.4-5.0 [facility] Comment on above: Performed By: #### P T, PTT #### [facility] [address] [place] [address] Dr. Mel Barrientos Albumin/Globulin [Mass ratio] 0.7 {ratio} Normal [facility] Comment on above: Performed By: #### P T, PTT #### [facility] [address] [place] [address] Dr. Mel Barrientos ALP [Catalytic activity/Vol] 128 U/L Critically high 46-116 [facility] Comment on above: Performed By: #### P T, PTT #### [facility] [address] [place] [address] Dr. Mel Barrientos ALT [Catalytic activity/Vol] 37 U/L Normal 16-63 [facility] Comment on above: Performed By: #### P T, PTT #### [facility] [address] [place] [address] Dr. Mel Barrientos Anion gap [Moles/Vol] 11.6 mmol/L Normal [facility] Comment on above: Performed By: #### P T, PTT #### [facility] [address] [address] [address] Mel Barrientos AST [Catalytic activity/Vol] 24 U/L Normal 15-37 [facility] Comment on above: Performed By: #### P T, PTT #### [facility] [address] [address] [address] Mel Barrientos Bilirubin [Mass/Vol] 0.3 mg/dL Normal 0.2-1.0 [facility] Comment on above: Performed By: #### P T, PTT #### [facility] [address] [place] [address] Dr. Mel Barrientos Calcium [Mass/Vol] 8.4 mg/dL Critically low 8.5-10.1 [facility] Comment on above: Performed By: #### P T, PTT #### [facility] [address] [place] [address] Dr. Mel Barrientos Chloride [Moles/Vol] 100 mmol/L Normal 98-107 [facility] Comment on above: Performed By: #### P T, PTT #### [facility] [address] [place] [address] Dr. Mel Barrientos CO2 [Moles/Vol] 24.5 mmol/L Normal 21.0-32.0 [facility] Comment on above: Performed By: #### P T, PTT #### [facility] [address] [place] [address] Dr. Mel Barrientos Creatinine [Mass/Vol] 0.80 mg/dL Normal 0.70-1.30 [facility] Comment on above: Performed By: #### P T, PTT #### [facility] [address] [place] [address] Dr. Mel Barrientos EGFR-AF TURKMEN >60 Normal >=60 [facility] Comment on above: Performed By: #### P T, PTT #### [facility] [address] [place] [address] Dr. Mel Barrientos EGFR-NON AF TURKMEN >60 Normal >=60 [facility] Comment on above: Performed By: #### P T, PTT #### [facility] [address] [address] [address] Mel Barrientos Globulin (S) [Mass/Vol] 3.8 g/dL Normal [facility] Comment on above: Performed By: #### P T, PTT #### [facility] [address] [place] [address] Dr. Mel Barrientos Glucose [Mass/Vol] 134 mg/dL Critically high 74-106 T [facility] Comment on above: Performed By: #### P T, PTT #### [facility] [address] [place] [address] Dr. Mel Barrientos Potassium [Moles/Vol] 4.1 mmol/L Normal 3.5-5.1 [facility] Comment on above: Performed By: #### P T, PTT #### [facility] [address] [place] [address] Dr. Mel Barrientos Protein [Mass/Vol] 6.5 g/dL Normal 6.4-8.2 [facility] Comment on above: Performed By: #### P T, PTT #### [facility] [address] [place] [address] Dr. Mel Barrientos Sodium [Moles/Vol] 132 mmol/L Critically low 136-145 Th [facility] Comment on above: Performed By: #### P T, PTT #### [facility] [address] [place] [address] Dr. Mel Barrientos Urea nitrogen [Mass/Vol] 19.0 mg/dL Critically high 7.0-18.0 [facility] Comment on above: Performed By: #### P T, PTT #### [facility] [address] [place] [address] Dr. Mel Barrientos Urea nitrogen/Creatinine [Mass ratio] 23.8 mg/mg Normal [facility] Comment on above: Performed By: #### P T, PTT #### [facility] [address] [place] [address] Dr. Mel Barrientos T4on 07-12-2022 T4 [Mass/Vol] 5.90 ug/dL Normal 4.50-12.10 [facility] Comment on above: Performed By: #### P T, PTT #### [facility] [address] [place] [address] Dr. Mel Barrientos TSHon 07-12-2022 TSH 3.686 uIU/mL Normal 0.358-3.74 0 [facility] Comment on above: Performed By: #### P T, PTT #### [facility] [address] [place] [address] Dr. Mel Barrientos BNPon 07-11-2022 Natriuretic peptide B (Bld) [Mass/Vol] 1694.0 pg/mL Critically high <=900.0 [facility] Comment on above: Performed By: #### L IPID, CMP #### [facility] [address] [place] [address] Dr. Mel Barrientos CARDIAC SUSHILA 3-6on 3 CK [Catalytic activity/Vol] 139 U/L Normal 39-308 [facility] Comment on above: Performed By: #### C MREP #### [facility] [address] [place] [address] Dr. Mel Barrientos CK.MB [Mass/Vol] 1.99 ng/mL Normal <=3.60 [facility] Comment on above: Performed By: #### C MREP #### [facility] [address] [place] [address] Dr. Mel Barrientos HSTROP 6.9 pg/mL Normal 4.0-76.1 [facility] Comment on above: Result Comment: CUT- OFF POINTS HAVE BEEN ESTABLISHED BASED ON THE FOURTH UNIVERSAL DEFINITIONS OF MYOCARDIAL INFARCTION. THE UPPER REFERENCE LIMIT (URL) OF TROPONIN, DEFINED THE 99TH PERCENTILE OF cTnI DISTRIBUTION IN A REFERENCE POPULATION, HAS BEEN CONFIRMED THE DECISION THRESHOLD FOR MD DIAGNOSIS. Performed By: #### C MREP #### [facility] [address] [place] [address] Dr. Mel Barrientos CK [Catalytic activity/Vol] 127 U/L Normal 39-308 [facility] Comment on above: Performed By: #### P T, PTT #### [facility] [address] [place] [address] Dr. Mel Barrientos CK.MB [Mass/Vol] 2.30 ng/mL Normal <=3.60 [facility] Comment on above: Performed By: #### P T, PTT #### [facility] [address] [place] [address] Dr. Mel Barrientos HSTROP 6.3 pg/mL Normal 4.0-76.1 [facility] Comment on above: Result Comment: CUT- OFF POINTS HAVE BEEN ESTABLISHED BASED ON THE FOURTH UNIVERSAL DEFINITIONS OF MYOCARDIAL INFARCTION. THE UPPER REFERENCE LIMIT (URL) OF TROPONIN, DEFINED THE 99TH PERCENTILE OF cTnI DISTRIBUTION IN A REFERENCE POPULATION, HAS BEEN CONFIRMED THE DECISION THRESHOLD FOR MD DIAGNOSIS. Performed By: #### P T, PTT #### [facility] [address] [place] [address] Dr. Mel Barrientos CBC AUTO DIFFon 07-11-2022 BASO # 0.0 103/ul Normal 0.0-0.1 [facility] Comment on above: Performed By: #### C BC #### [facility] [address] [place] [address] Dr. Mel Barrientos Basophils/100 WBC (Bld) 0.3 % Normal 0.2-2.0 [facility] Comment on above: Performed By: #### C BC #### [facility] [address] [place] [address] Dr. Mel Barrientos EO # 0.1 103/ul Normal 0.0-0.7 [facility] Comment on above: Performed By: #### C BC #### [facility] [address] [place] [address] Dr. Mel Barrientos Eosinophils/100 WBC (Bld) 3.7 % Normal 0.9-7.0 [facility] Comment on above: Performed By: #### C BC #### [facility] [address] [place] [address] Dr. Mel Barrientos Erythrocyte distribution width (RBC) [Ratio] 13.3 % Normal 11.0-15.0 [facility] Comment on above: Performed By: #### C BC #### [facility] [address] [place] [address] Dr. Mel Barrientos Hematocrit (Bld) [Volume fraction] 31.7 % Critically low 42.0-54.0 [facility] Comment on above: Performed By: #### C BC #### [facility] [address] [place] [address] Dr. Mel Barrientos Hemoglobin (Bld) [Mass/Vol] 9.3 g/dL Critically low 14.0-18.0 [facility] Comment on above: Performed By: #### C BC #### [facility] [address] [place] [address] Dr. Mel Barrientos IG # 0.01 10e3/ul Normal 0.00-0.03 [facility] Comment on above: Performed By: #### C BC #### [facility] [address] [place] [address] Dr. Mel Barrientos IG % 0.3 % Normal 0.0-0.5 [facility] Comment on above: Performed By: #### C BC #### [facility] [address] [place] [address] Dr. Mel Barrientos LYMPH # 1.0 103/ul Critically low 1.2-3.8 [facility] Comment on above: Performed By: #### C BC #### [facility] [address] [place] [address] Dr. Mel Barrientos Lymphocytes/100 WBC (Bld) 26.1 % Normal 20.5-60.0 [facility] Comment on above: Performed By: #### C BC #### [facility] [address] [place] [address] Dr. Mel Barrientos MANUAL DIFF REQ NO Normal [facility] Comment on above: Performed By: #### C BC #### [facility] [address] [place] [address] Dr. Mel Barrientos MCH (RBC) [Entitic mass] 33.9 pg Normal 25.9-34.0 [facility] Comment on above: Performed By: #### C BC #### [facility] [address] [place] [address] Dr. Mel Barrientos MCHC (RBC) [Mass/Vol] 29.3 g/dL Critically low 29.9-35.2 [facility] Comment on above: Performed By: #### C BC #### [facility] [address] [place] [address] Dr. Mel Barrientos MCV (RBC) [Entitic vol] 115.7 fL Critically high 80.0-94.0 [facility] Comment on above: Performed By: #### C BC #### [facility] [address] [place] [address] Dr. Mel Barrientos MONO # 0.5 103/ul Normal 0.3-0.8 [facility] Comment on above: Performed By: #### C BC #### [facility] [address] [place] [address] Dr. Mel Barrientos Monocytes/100 WBC (Bld) 13.3 % Critically high 1.7-12.0 [facility] Comment on above: Performed By: #### C BC #### [facility] [address] [place] [address] Dr. Mel Barrientos NEUT # 2.1 103/ul Normal 1.4-6.5 [facility] Comment on above: Performed By: #### C BC #### [facility] [address] [place] [address] Dr. Mel Barrientos Neutrophils/100 WBC (Bld) 56.3 % Normal 43.0-75.0 [facility] Comment on above: Performed By: #### C BC #### [facility] [address] [place] [address] Dr. Mel Barrientos Platelet mean volume (Bld) [Entitic vol] 9.2 fL Critically low 9.5-13.5 [facility] Comment on above: Performed By: #### C BC #### [facility] [address] [place] [address] Dr. Mel Barrientos PLT 259 103/ul Normal 150-450 [facility] Comment on above: Performed By: #### C BC #### [facility] [address] [place] [address] Dr. Mel Barrientos RBC 2.74 106/ul Critically low 4.70-6.10 [facility] Comment on above: Performed By: #### C BC #### [facility] [address] [address] [address] Mel Barrientos WBC 3.8 103/ul Critically low 4.0-11.0 [facility] Comment on above: Performed By: #### C BC #### [facility] [address] [address] [address] Mel Barrientos Covid-19 PCR ([facility])on 06-29 SARS-CoV-2 (COVID-19) RNA NE+probe Ql (Unsp spec) Not detected Normal NOT DETECTED [facility] Comment on above: Result Comment: When diagnostic testing is negative, the possibility of a false negative should be considered in the context of a patient's recent exposures and the presence of clinical signs and symptoms consistent with SARS-CoV-2. This test is not yet approved or cleared by the [place] FDA. When there are no FDA-approved or cleared tests available, and other criteria are met, FDA can make tests available under an emergency access mechanism called an Emergency Use Authorization (EUA). The EUA for this test is supported by the [place] of Health and Human Service's declaration that circumstances exist to justify the emergency use of in vitro diagnostics for the detection and/or diagnosis of the virus that causes COVID-19. This EUA will remain in effect for the duration of the COVID-19 declaration justifying emergency of IVDs, unless it is terminated or revoked by the FDA (after which the test may no longer be used). Performed By: #### P T, PTT #### [facility] [address] [place] [address] Dr. Mel Barrientos GLYCOHEMOGLOBIN A1Con 2022 ADA RECOMMENDATION SEE BELOW Normal [facility] Comment on above: Result Comment: ADA RECOMMENDED LIMIT 4.0 - 6.0 ADA THERAPEUTIC TARGET < 7.0 ACTION SUGGESTED > 7.0 Performed By: #### L IPID, CMP #### [facility] [address] [place] [address] Dr. Mel Barrientos Glucose [Mass/Vol] 128 mg/dL Normal [facility] Comment on above: Performed By: #### L IPID, CMP #### [facility] [address] [place] [address] Dr. Mel Barrientos HbA1c (Bld) [Mass fraction] 6.1 % Normal 4.5-6.2 [facility] Comment on above: Performed By: #### L IPID, CMP #### [facility] [address] [place] [address] Dr. Mel Barrientos LIPASEon 07-11-2022 Lipase [Catalytic activity/Vol] 10.0 U/L Critically low 73.0-393.0 [facility] Comment on above: Performed By: #### L IPID, CMP #### [facility] [address] [place] [address] Dr. Mel Barrientos PROF 14(COMP METB)on 023 Albumin [Mass/Vol] 3.1 g/dL Critically low 3.4-5.0 [facility] Comment on above: Performed By: #### L IPID, CMP #### [facility] [address] [place] [address] Dr. Mel Barrientos Albumin/Globulin [Mass ratio] 0.7 {ratio} Normal [facility] Comment on above: Performed By: #### L IPID, CMP #### [facility] [address] [place] [address] Dr. Mel Barrientos ALP [Catalytic activity/Vol] 143 U/L Critically high 46-116 [facility] Comment on above: Performed By: #### L IPID, CMP #### [facility] [address] [place] [address] Dr. Mel Barrientos ALT [Catalytic activity/Vol] 52 U/L Normal 16-63 [facility] Comment on above: Performed By: #### L IPID, CMP #### [facility] [address] [place] [address] Dr. Mel Barrientos Anion gap [Moles/Vol] 12.7 mmol/L Normal [facility] Comment on above: Performed By: #### L IPID, CMP #### [facility] [address] [place] [address] Dr. Mel Barrientos AST [Catalytic activity/Vol] 31 U/L Normal 15-37 [facility] Comment on above: Performed By: #### L IPID, CMP #### [facility] [address] [place] [address] Dr. Mel Barrientos Bilirubin [Mass/Vol] 0.3 mg/dL Normal 0.2-1.0 [facility] Comment on above: Performed By: #### L IPID, CMP #### [facility] [address] [place] [address] Dr. Mel Barrientos Calcium [Mass/Vol] 8.6 mg/dL Normal 8.5-10.1 [facility] Comment on above: Performed By: #### L IPID, CMP #### [facility] [address] [place] [address] Dr. Mel Barrientos Chloride [Moles/Vol] 103 mmol/L Normal 98-107 [facility] Comment on above: Performed By: #### L IPID, CMP #### [facility] [address] [place] [address] Dr. Mel Barrientos CO2 [Moles/Vol] 24.7 mmol/L Normal 21.0-32.0 [facility] Comment on above: Performed By: #### L IPID, CMP #### [facility] [address] [place] [address] Dr. Mel Barrientos Creatinine [Mass/Vol] 0.90 mg/dL Normal 0.70-1.30 [facility] Comment on above: Performed By: #### L IPID, CMP #### [facility] [address] [place] [address] Dr. Mel Barrientos EGFR-AF TURKMEN >60 Normal >=60 [facility] Comment on above: Performed By: #### L IPID, CMP #### [facility] [address] [place] [address] Dr. Mel Barrientos EGFR-NON AF TURKMEN >60 Normal >=60 [facility] Comment on above: Performed By: #### L IPID, CMP #### [facility] [address] [place] [address] Dr. Mel Barrientos Globulin (S) [Mass/Vol] 4.2 g/dL Normal [facility] Comment on above: Performed By: #### L IPID, CMP #### [facility] [address] [place] [address] Dr. Mel Barrientos Glucose [Mass/Vol] 204 mg/dL Critically high 74-106 T [facility] Comment on above: Performed By: #### L IPID, CMP #### [facility] [address] [place] [address] Dr. Mel Barrientos Potassium [Moles/Vol] 4.4 mmol/L Normal 3.5-5.1 [facility] Comment on above: Performed By: #### L IPID, CMP #### [facility] [address] [place] [address] Dr. Mel Barrientos Protein [Mass/Vol] 7.3 g/dL Normal 6.4-8.2 [facility] Comment on above: Performed By: #### L IPID, CMP #### [facility] [address] [place] [address] Dr. Mel Barrientos Sodium [Moles/Vol] 136 mmol/L Normal 136-145 [facility] Comment on above: Performed By: #### L IPID, CMP #### [facility] [address] [place] [address] Dr. Mel Barrientos Urea nitrogen [Mass/Vol] 20.0 mg/dL Critically high 7.0-18.0 [facility] Comment on above: Performed By: #### L IPID, CMP #### [facility] [address] [place] [address] Dr. Mel Barrientos Urea nitrogen/Creatinine [Mass ratio] 22.2 mg/mg Normal [facility] Comment on above: Performed By: #### L IPID, CMP #### [facility] [address] [place] [address] Dr. Mel Barrientos PROTIMEon 07-11-2022 INR Coag (PPP) [Relative time] 1.14 {INR} Normal [facility] Comment on above: Performed By: #### P T, PTT #### [facility] [address] [place] [address] Dr. Mel Barrientos INR GUIDELINES SEE BELOW Normal [facility] Comment on above: Result Comment: JESSIKA RED INR: 2.0 - 3.0 CONDITIONS NOT LISTED BELOW 2.5 - 3.5 FOR PROSTHETIC HEART VALVE REPLACEMENT 2.5 - 3.5 RECURRENT THROMBOSIS Performed By: #### P T, PTT #### [facility] [address] [place] [address] Dr. Mel Barrientos PT Coag (PPP) [Time] 12.0 s Critically high 9.0-11.6 [facility] Comment on above: Performed By: #### P T, PTT #### [facility] [address] [place] [address] Dr. Mel Barrientos PTTon 07-11-2022 aPTT Coag (Bld) [Time] 30.8 s Normal 22.3-36.2 [facility] Comment on above: Performed By: #### P T, PTT #### [facility] [address] [place] [address] Dr. Mel Barrientos TROPONIN, HIGH SENSITIVITYon 07-11-2022 HSTROP 6.6 pg/mL Normal 4.0-76.1 [facility] Comment on above: Result Comment: CUT- OFF POINTS HAVE BEEN ESTABLISHED BASED ON THE FOURTH UNIVERSAL DEFINITIONS OF MYOCARDIAL INFARCTION. THE UPPER REFERENCE LIMIT (URL) OF TROPONIN, DEFINED THE 99TH PERCENTILE OF cTnI DISTRIBUTION IN A REFERENCE POPULATION, HAS BEEN CONFIRMED THE DECISION THRESHOLD FOR MD DIAGNOSIS. Performed By: #### L IPID, CMP #### [facility] [address] [place] [address] Dr. Mel Barrientos XR CHEST 1 Von 07-11-2022 XR CHEST 1 V EXAM: XR CHEST 1 V a t 1317 hours HISTORY: CHEST PAIN, UNSPECIFIED COMPARISON: None. TECHNIQUE: AP upright portable chest x-ray FINDINGS: The heart is not enlarged and the vasculature is not distended. No acute infiltrate, effusion or pneumothorax is identified. The osseous structures are grossly intact. IMPRESSION: No acute infiltrate or evidence of cardiac decompensation. Direct comparison with a previous study would be helpful in determining the chronicity of these findings. Electronically authenticated by: MAR MOE Date: 2022-07-11 14:05 Normal [facility] CNPNon 07-07-2022 CNPN Normal [facility] CBC W Auto Differential pane l (Bld)on 07-03-2022 Basophils (Bld) [#/Vol] 10*3/uL Normal <0.11 [facility] Comment on above: Order Comment: Speci men Type: BLOOD SPECIMENOrdering Facility: [facility] Address: [address] [place] [address] Performed By: #### 5 7021-8 ####[facility] LABCLIA [id number] [place] [address] Basophils/100 WBC (Bld) 0.6 % Normal [facility] Comment on above: Order Comment: Speci men Type: BLOOD SPECIMENOrdering Facility: [facility] Address: [address] [place] [address] Performed By: #### 5 7021-8 ####[facility] LABCLIA [id number] [place] [address] Differential cell count method Nom (Bld) Auto Normal [facility] Comment on above: Order Comment: Speci men Type: BLOOD SPECIMENOrdering Facility: [facility] Address: [address] [place] [address] Performed By: #### 5 7021-8 ####[facility] LABCLIA [id number] [place] [address] Eosinophils (Bld) [#/Vol] 0.19 10*3/uL Normal <0.46 [facility] Comment on above: Order Comment: Speci men Type: BLOOD SPECIMENOrdering Facility: [facility] Address: [address] [place] [address] Performed By: #### 5 7021-8 ####[facility]CLIA [id number] [place] [address] Eosinophils/100 WBC (Bld) 5.7 % Normal [facility] Comment on above: Order Comment: Speci men Type: BLOOD SPECIMENOrdering Facility: [facility] Address: [address] [place] [address] Performed By: #### 5 7021-8 ####[facility] LABCLIA [id number] [place] [address] Erythrocyte distribution width (RBC) [Ratio] 13.3 % Normal 11.5-15.0 [facility] Comment on above: Order Comment: Speci men Type: BLOOD SPECIMENOrdering Facility: [facility] Address: [address] [place] [address] Performed By: #### 5 7021-8 ####[facility] LABCLIA [id number] [place] [address] Hematocrit (Bld) [Volume fraction] 27.5 % Low 39.0-51.0 [facility] Comment on above: Order Comment: Speci men Type: BLOOD SPECIMENOrdering Facility: [facility] Address: [address] [place] [address] Performed By: #### 5 7021-8 ####[facility] LABIA [id number] [place] [address] Hemoglobin (Bld) [Mass/Vol] 8.7 g/dL Low 13.0-17.0 [facility] Comment on above: Order Comment: Speci men Type: BLOOD SPECIMENOrdering Facility: [facility] Address: [address] [place] [address] Performed By: #### 5 7021-8 ####[facility] LABCLIA [id number] [place] [address] Immature granulocytes (Bld) [#/Vol] 10*3/uL Normal <0.10 [facility] Comment on above: Order Comment: Speci men Type: BLOOD SPECIMENOrdering Facility: [facility] Address: [address] [place] [address] Performed By: #### 5 7021-8 ####[facility] LABCLIA [id number] [place] [address] Immature granulocytes/100 WBC (Bld) 0.3 % Normal [facility] Comment on above: Order Comment: Speci men Type: BLOOD SPECIMENOrdering Facility: [facility] Address: [address] [place] [address] Performed By: #### 5 7021-8 ####[facility] LABCLIA [id number] [place] [address] Lymphocytes (Bld) [#/Vol] 0.83 10*3/uL Low 1.00-4.00 [facility] Comment on above: Order Comment: Speci men Type: BLOOD SPECIMENOrdering Facility: [facility] Address: [address] [place] [address] Performed By: #### 5 7021-8 ####[facility] LABCLIA [id number] [place] [address] Lymphocytes/100 WBC (Bld) 24.9 % Normal [facility] Comment on above: Order Comment: Speci men Type: BLOOD SPECIMENOrdering Facility: [facility] Address: [address] [place] [address] Performed By: #### 5 7021-8 ####[facility] LABCLIA [id number] [place] [address] MCH (RBC) [Entitic mass] 34.1 pg High 26.0-34.0 [facility] Comment on above: Order Comment: Speci men Type: BLOOD SPECIMENOrdering Facility: [facility] Address: [address] [place] [address] Performed By: #### 5 7021-8 ####[facility] LABCLIA [id number] [place] [address] MCHC (RBC) [Mass/Vol] 31.6 g/dL Normal 30.5-36.0 [facility] Comment on above: Order Comment: Speci men Type: BLOOD SPECIMENOrdering Facility: [facility] Address: [address] [place] [address] Performed By: #### 5 7021-8 ####[facility] LABCLIA [id number] [place] [address] MCV (RBC) [Entitic vol] 107.8 fL High 80.0-100.0 [facility] Comment on above: Order Comment: Speci men Type: BLOOD SPECIMENOrdering Facility: [facility] Address: [address] [place] [address] Performed By: #### 5 7021-8 ####[facility] LABCLIA [id number] [place] [address] Monocytes (Bld) [#/Vol] 0.41 10*3/uL Normal <0.87 [facility] Comment on above: Order Comment: Speci men Type: BLOOD SPECIMENOrdering Facility: [facility] Address: [address] [place] [address] Performed By: #### 5 7021-8 ####[facility] LABCLIA [id number] [place] [address] Monocytes/100 WBC (Bld) 12.3 % Normal [facility] Comment on above: Order Comment: Speci men Type: BLOOD SPECIMENOrdering Facility: [facility] Address: [address] [place] [address] Performed By: #### 5 7021-8 ####[facility] LABCLIA [id number] [place] [address] Neutrophils (Bld) [#/Vol] 1.88 10*3/uL Normal 1.45-7.50 [facility] Comment on above: Order Comment: Speci men Type: BLOOD SPECIMENOrdering Facility: [facility] Address: [address] [place] [address] Performed By: #### 5 7021-8 ####[facility] LABCLIA [id number] [place] [address] Neutrophils/100 WBC (Bld) 56.2 % Normal [facility] Comment on above: Order Comment: Speci men Type: BLOOD SPECIMENOrdering Facility: [facility] [facility] Address: [address] [address] Performed By: #### 5 7021-8 ####[facility] LABCLIA [id number] [place] [address] Nucleated RBC (Bld) [#/Vol] 10*3/uL Normal <0.01 [facility] Comment on above: Order Comment: Speci men Type: BLOOD SPECIMENOrdering Facility: [facility] Address: [address] [address] Performed By: #### 5 7021-8 ####[facility] LABCLIA [id number] [place] [address] Nucleated RBC/100 WBC (Bld) [Ratio] 0.0 /100 WBC Normal [facility] Comment on above: Order Comment: Speci men Type: BLOOD SPECIMENOrdering Facility: [facility] Address: [address] [place] [address] Performed By: #### 5 7021-8 ####[facility] LABIA [id number] [place] [address] Platelet mean volume (Bld) [Entitic vol] 8.8 fL Low 9.0-12.7 [facility] Comment on above: Order Comment: Speci men Type: BLOOD SPECIMENOrdering Facility: [facility] Address: [address] Performed By: #### 5 7021-8 ####[facility] LABCLIA [id number] [place] [address] Platelets (Bld) [#/Vol] 231 10*3/uL Normal 150-400 [facility] Comment on above: Order Comment: Speci men Type: BLOOD SPECIMENOrdering Facility: [facility] Address: [address] [place], [place] [address] Performed By: #### 5 7021-8 ####[facility] LABCLIA [id number] [place] [address] RBC (Bld) [#/Vol] 2.55 10*6/uL Low 4.20-6.00 [facility] Comment on above: Order Comment: Speci men Type: BLOOD SPECIMENOrdering Facility: [facility] Address: [address] [place] [address] Performed By: #### 5 7021-8 ####[facility] LABCLIA [id number] [place] [address] WBC (Bld) [#/Vol] 3.34 10*3/uL Low 3.70-11.00 [facility] Comment on above: Order Comment: Speci men Type: BLOOD SPECIMENOrdering Facility: [facility] Address: [address] [place] [address] Performed By: #### 5 7021-8 ####[facility] LABCLIA [id number] [place] [address] CNNURSEon 07-03-2022 CNNURSE Normal [facility] CNOVSPon 07-03-2022 CNOVSP Normal [facility] CT ABD/PEL W IVCONon 023 CT ABD/PEL W IVCON Normal [facility] CT CHEST W IVCONon 3 CT CHEST W IVCON Normal [facility] Cancer Ag19-9 SerPl-aCncon 0 07-03-2022 Cancer Ag 19-9 Qn 9.0 [arb'U]/mL Normal <36.0 [facility] Comment on above: Order Comment: Speci men Type: BLOOD SPECIMENOrdering Facility: [facility] Address: [address] [place], [place] [address] Result Comment: [facility] er antigen 19-9 test is used as an aid in monitoring response to treatment or recurrence in patients with established pancreatic, hepatobiliary, or gastrointestinal malignancies. Clinical correlation is required.The CA 19-9 Antigen test was performed using the [employer] DXI paramagnetic particle chemiluminescent immunoassay method. Results obtained with different assay methods or kits cannot be used interchangeably. Performed By: #### 2 4108-3 ####[facility] LABCLIA [id number] [facility] [id number] [place] Comprehensive metabolic 2000 panelon 07-03-2022 Albumin [Mass/Vol] 3.5 g/dL Low 3.9-4.9 [facility] Comment on above: Order Comment: Speci men Type: BLOOD SPECIMENOrdering Facility: [facility] Address: [address] [address] Performed By: #### 2 4323-8 ####[facility] LABIA [id number] [place] [address] ALP [Catalytic activity/Vol] 140 U/L High 38-113 [facility] Comment on above: Order Comment: Speci men Type: BLOOD SPECIMENOrdering Facility: [facility] Address: [address] [address] Performed By: #### 2 4323-8 ####[facility] LABCLIA [id number] [place] [address] ALT [Catalytic activity/Vol] 32 U/L Normal 10-54 [facility] Comment on above: Order Comment: Speci men Type: BLOOD SPECIMENOrdering Facility: [facility] Address: [address] [address] Performed By: #### 2 4323-8 ####[facility] LABCLIA [id number] [place] [address] Anion gap [Moles/Vol] 7 mmol/L Low 9-18 [facility] Comment on above: Order Comment: Speci men Type: BLOOD SPECIMENOrdering Facility: [facility] Address: [address] [address] Performed By: #### 2 4323-8 ####[facility] LABCLIA [id number] [place] [address] AST [Catalytic activity/Vol] 27 U/L Normal 14-40 [facility] Comment on above: Order Comment: Speci men Type: BLOOD SPECIMENOrdering Facility: [facility] Address: [address] [address] Performed By: #### 2 4323-8 ####[facility] LABCLIA [id number] [place] [address] Bilirubin [Mass/Vol] 0.2 mg/dL Normal 0.2-1.3 [facility] Comment on above: Order Comment: Speci men Type: BLOOD SPECIMENOrdering Facility: [facility] Address: [address] [place] [address] Performed By: #### 2 4323-8 ####[facility] LABCLIA [id number] [place] [address] Calcium [Mass/Vol] 8.5 mg/dL Normal 8.5-10.2 [facility] Comment on above: Order Comment: Speci men Type: BLOOD SPECIMENOrdering Facility: [facility] Address: [address] [address] Performed By: #### 2 4323-8 ####[facility] LABCLIA [id number] [place] [address] Chloride [Moles/Vol] 102 mmol/L Normal 97-105 [facility] Comment on above: Order Comment: Speci men Type: BLOOD SPECIMENOrdering Facility: [facility] Address: [address] [address] Performed By: #### 2 4323-8 ####[facility] LABCLIA [id number] [place] [address] CO2 [Moles/Vol] 21 mmol/L Low 22-30 [facility] Comment on above: Order Comment: Speci men Type: BLOOD SPECIMENOrdering Facility: [facility] Address: [address] [address] Performed By: #### 2 4323-8 ####[facility] LABCLIA [id number] [place] [address] Creatinine [Mass/Vol] 0.70 mg/dL Low 0.73-1.22 [facility] Comment on above: Order Comment: Frank farhan Type: BLOOD SPECIMENOrdering Facility: [facility] Address: [address] [place] [address] Performed By: #### 2 4323-8 ####[facility] LABCLIA [id number] [place] [address] ESTIMATED GLOMERULAR FILTRATION RATE 102 mL/min/1.73m??? Normal >=60 [facility] Comment on above: Order Comment: Frank real Type: BLOOD SPECIMENOrdering Facility: [facility] Address: [address] [place] [address] Result Comment: Megan mated Glomerular Filtration Rate (eGFR) is calculated using the 2020 CKD-EPI creatinine equation. This equation utilizes serum creatinine, sex, and age as parameters. The creatinine assay has traceable calibration to isotope dilution-mass spectrometry. Refer to KDIGO guidelines for clinical interpretation. In patients with unstable renal function, e.g. those with acute kidney injury, the eGFR may not accurately reflect actual GFR. Performed By: #### 2 4323-8 ####[facility] LABCLIA [id number] [place] [address] Glucose [Mass/Vol] 292 mg/dL High 74-99 [facility] Comment on above: Order Comment: Wolfgangabiola real Type: BLOOD SPECIMENOrdering Facility: [facility] Address: [address] [place] [address] Result Comment: The [place] Diabetes [employer] (ADA) provides guidance for cutoff values for fasting glucose and random glucose. The ADA defines fasting as no caloric intake for at least 8 hours. Fasting plasma glucose results between 100 to 125 mg/dL indicate increased risk for diabetes (prediabetes).Fasting plasma glucose results greater than or equal to 126 mg/dL meet the criteria for diagnosis of diabetes. In the absence of unequivocal hyperglycemia, results should be confirmed by repeat testing. In a patient with classic symptoms of hyperglycemia or hyperglycemic crisis, random plasma glucose results greater than or equal to 200 mg/dL meet the criteria for diagnosis of diabetes.Reference: Standards of Medical Care in Diabetes 2016, [place] [employer]. Diabetes Care. 2016.39(Suppl 1). Performed By: #### 2 4323-8 ####[facility] LABCLIA [id number] [place] [address] Potassium [Moles/Vol] 4.4 mmol/L Normal 3.7-5.1 [facility] Comment on above: Order Comment: Speci men Type: BLOOD SPECIMENOrdering Facility: [facility] Address: [address] [address] Performed By: #### 2 4323-8 ####[facility] LABCLIA [id number] [place] [address] Protein [Mass/Vol] 6.3 g/dL Normal 6.3-8.0 [facility] Comment on above: Order Comment: Speci men Type: BLOOD SPECIMENOrdering Facility: [facility] Address: [address] [address] Performed By: #### 2 4323-8 ####[facility] LABCLIA [id number] [place] [address] Sodium [Moles/Vol] 130 mmol/L Low 136-144 [facility] Comment on above: Order Comment: Speci men Type: BLOOD SPECIMENOrdering Facility: [facility] Address: [address] [address] Performed By: #### 2 4323-8 ####[facility] LABCLIA [id number] [place] [address] Urea nitrogen [Mass/Vol] 23 mg/dL Normal 9-24 [facility] Comment on above: Order Comment: Speci men Type: BLOOD SPECIMENOrdering Facility: [facility] Address: [address] [address] Performed By: #### 2 4323-8 ####[facility] LABCLIA [id number] [place] [address] Ferritin SerPl-mCncon 2022 Ferritin [Mass/Vol] 243.0 ng/mL Normal 30.3-565.7 [facility] Comment on above: Order Comment: Speci men Type: BLOOD SPECIMENOrdering Facility: [facility] Address: [address] [place] [address] Performed By: #### 5 0190-8, 2275-4, 9, 2284-01 ####[facility] LABCLIA [id number] [place] [address] [place] Folate SerPl-mCncon 07-03-19 Folate [Mass/Vol] 4.1 ng/mL Low >4.7 [facility] Comment on above: Order Comment: Speci men Type: BLOOD SPECIMENOrdering Facility: [facility] Address: [address] [place] [address] Performed By: #### 5 0190-8, 4, 9, 2284-01 ####[facility] LABCLIA [id number] [place] [address] [place] Iron and Iron binding capaci ty panelon 07-03-2022 Iron [Mass/Vol] 30 ug/dL Low 41-186 [facility] Comment on above: Order Comment: Speci men Type: BLOOD SPECIMENOrdering Facility: [facility] Address: [address] [place], [place] [address] Performed By: #### 5 0190-8, 2275-4, 9, 2284-01 ####[facility] LABCLIA [id number] [place] [address] [place] Iron binding capacity [Mass/Vol] 212 ug/dL Low 232-386 [facility] Comment on above: Order Comment: Speci men Type: BLOOD SPECIMENOrdering Facility: [facility] Address: [address] [place], [place] [address] Performed By: #### 5 0190-8, 2275-4, 2132-02, 2284-01 ####[facility] LABCLIA [id number] [place] [address] [place] Iron/TIBC [Molar ratio] 14.2 % Low 15.0-57.0 [facility] Comment on above: Order Comment: Speci men Type: BLOOD SPECIMENOrdering Facility: [facility] Address: [address] Performed By: #### 5 0190-8, 2275-09, 2132-02, 2284-01 ####[facility] LABCLIA [id number] [place] [address] [place] Vit B12 [facility] Cobalamin (Vitamin B12) [Mass/Vol] 465 pg/mL Normal 232-1245 [facility] Comment on above: Order Comment: Speci men Type: BLOOD SPECIMENOrdering Facility: [facility] Address: [address] Performed By: #### 5 0190-8, 2275-09, 2132-02, 2284-01 ####[facility] LABCLIA [id number] [place] [address] [place] CBC W Auto Differential pane l (Bld)on 06-06-2022 Anisocytosis Ql (Bld) Present Normal [facility] Comment on above: Order Comment: Speci men Type: BLOOD SPECIMENOrdering Facility: [facility] Address: [address] Performed By: #### 5 7021-8 ####[facility] LABCLIA [id number] [place], [place] [address] LABCLIA [id number] [place] [address] [place] Basophils (Bld) [#/Vol] 10*3/uL Normal <0.11 [facility] Comment on above: Order Comment: Speci men Type: BLOOD SPECIMENOrdering Facility: [facility] Address: [address] [place] [address] Performed By: #### 5 7021-8 ####[facility] LABCLIA [id number] [address] LABCLIA [id number] [place] [address] [place] Basophils/100 WBC (Bld) 0.7 % Normal [facility] Comment on above: Order Comment: Speci men Type: BLOOD SPECIMENOrdering Facility: [facility] Address: [address] [place] [address] Performed By: #### 5 7021-8 ####[facility] LABCLIA [id number] [address] LABCLIA [id number] [place] [address] [place] CBC W Differential panel, method unspecified (Bld) Done Normal [facility] Comment on above: Order Comment: Speci men Type: BLOOD SPECIMENOrdering Facility: [facility] Address: [address] [place] [address] Performed By: #### 5 7021-8 ####[facility] LABCLIA [id number] [address] LABCLIA [id number] [place] [address] [place] Differential cell count method Nom (Bld) Auto Normal [facility] Comment on above: Order Comment: Speci men Type: BLOOD SPECIMENOrdering Facility: [facility] Address: [address] [place] [address] Performed By: #### 5 7021-8 ####[facility] LABCLIA [id number] [address] LABCLIA [id number] [place] [address] [place] Eosinophils (Bld) [#/Vol] 0.16 10*3/uL Normal <0.46 [facility] Comment on above: Order Comment: Speci men Type: BLOOD SPECIMENOrdering Facility: [facility] Address: [address] [place] [address] Performed By: #### 5 7021-8 ####[facility] LABCLIA [id number] [address] LABCLIA [id number] [place] [address] [place] Eosinophils/100 WBC (Bld) 5.3 % Normal [facility] Comment on above: Order Comment: Speci men Type: BLOOD SPECIMENOrdering Facility: [facility] Address: [address] [place] [address] Performed By: #### 5 7021-8 ####[facility] LABCLIA [id number] [address] LABCLIA [id number] [place] [address] [place] Erythrocyte distribution width (RBC) [Ratio] 15.1 % High 11.5-15.0 [facility] Comment on above: Order Comment: Speci men Type: BLOOD SPECIMENOrdering Facility: [facility] Address: [address] [place] [address] Performed By: #### 5 7021-8 ####[facility] LABCLIA [id number] [address] LABCLIA [id number] [place] [address] [place] Hematocrit (Bld) [Volume fraction] 28.5 % Low 39.0-51.0 [facility] Comment on above: Order Comment: Speci men Type: BLOOD SPECIMENOrdering Facility: [facility] Address: [address] [address] Performed By: #### 5 7021-8 ####[facility] LABCLIA [id number] [address] LABCLIA [id number] [place] [address] [place] Hemoglobin (Bld) [Mass/Vol] 9.1 g/dL Low 13.0-17.0 [facility] Comment on above: Order Comment: Speci men Type: BLOOD SPECIMENOrdering Facility: [facility] Address: [address] [place] [address] Performed By: #### 5 7021-8 ####[facility] LABCLIA [id number] [address] LABCLIA [id number] [place] [address] [place] Immature granulocytes (Bld) [#/Vol] 10*3/uL Normal <0.10 [facility] Comment on above: Order Comment: Speci men Type: BLOOD SPECIMENOrdering Facility: [facility] Address: [address] [place] [address] Performed By: #### 5 7021-8 ####[facility] LABCLIA [id number] [address] LABCLIA [id number] [place] [address] [place] Immature granulocytes/100 WBC (Bld) 0.3 % Normal [facility] Comment on above: Order Comment: Speci men Type: BLOOD SPECIMENOrdering Facility: [facility] Address: [address] [place] [address] Performed By: #### 5 7021-8 ####[facility] LABCLIA [id number] [address] LABCLIA [id number] [place] [address] [place] Lymphocytes (Bld) [#/Vol] 1.20 10*3/uL Normal 1.00-4.00 [facility] Comment on above: Order Comment: Speci men Type: BLOOD SPECIMENOrdering Facility: [facility] Address: [address] [place] [address] Performed By: #### 5 7021-8 ####[facility] LABCLIA [id number] [address] LABCLIA [id number] [place] [address] [place] Lymphocytes/100 WBC (Bld) 39.9 % Normal [facility] Comment on above: Order Comment: Speci men Type: BLOOD SPECIMENOrdering Facility: [facility] Address: [address] [place] [address] Performed By: #### 5 7021-8 ####[facility] LABCLIA [id number] [address] LABCLIA [id number] [place] [address] [place] MCH (RBC) [Entitic mass] 35.3 pg High 26.0-34.0 [facility] Comment on above: Order Comment: Speci men Type: BLOOD SPECIMENOrdering Facility: [facility] Address: [address] [place] [address] Performed By: #### 5 7021-8 ####[facility] LABCLIA [id number] [address] LABCLIA [id number] [place] [address] [place] MCHC (RBC) [Mass/Vol] 31.9 g/dL Normal 30.5-36.0 [facility] Comment on above: Order Comment: Speci men Type: BLOOD SPECIMENOrdering Facility: [facility] Address: [address] [place] [address] Performed By: #### 5 7021-8 ####[facility] LABCLIA [id number] [address] LABCLIA [id number] [place] [address] [place] MCV (RBC) [Entitic vol] 110.5 fL High 80.0-100.0 [facility] Comment on above: Order Comment: Speci men Type: BLOOD SPECIMENOrdering Facility: [facility] Address: [address] [place] [address] Performed By: #### 5 7021-8 ####[facility] LABCLIA [id number] [address] LABCLIA [id number] [place] [address] [place] Monocytes (Bld) [#/Vol] 0.42 10*3/uL Normal <0.87 [facility] Comment on above: Order Comment: Speci men Type: BLOOD SPECIMENOrdering Facility: [facility] Address: [address] [place] [address] Performed By: #### 5 7021-8 ####[facility] LABCLIA [id number] [address] LABCLIA [id number] [place] [address] [place] Monocytes/100 WBC (Bld) 14.0 % Normal [facility] Comment on above: Order Comment: Speci men Type: BLOOD SPECIMENOrdering Facility: [facility] Address: [address] [place] [address] Performed By: #### 5 7021-8 ####[facility] LABCLIA [id number] [address] LABCLIA [id number] [place] [address] [place] Neutrophils (Bld) [#/Vol] 1.20 10*3/uL Low 1.45-7.50 [facility] Comment on above: Order Comment: Speci men Type: BLOOD SPECIMENOrdering Facility: [facility] Address: [address] [place] [address] Performed By: #### 5 7021-8 ####[facility] LABCLIA [id number] [address] LABCLIA [id number] [place] [address] [place] Neutrophils/100 WBC (Bld) 39.8 % Normal [facility] Comment on above: Order Comment: Speci men Type: BLOOD SPECIMENOrdering Facility: [facility] Address: [address] [place] [address] Result Comment: Revi ewed Performed By: #### 5 7021-8 ####[facility] LABCLIA [id number] [address] LABCLIA [id number] [place] [address] [place] Nucleated RBC (Bld) [#/Vol] 10*3/uL Normal <0.01 [facility] Comment on above: Order Comment: Speci men Type: BLOOD SPECIMENOrdering Facility: [facility] Address: [address] [place] [address] Performed By: #### 5 7021-8 ####[facility] LABCLIA [id number] [address] LABCLIA [id number] [place] [address] [place] Nucleated RBC/100 WBC (Bld) [Ratio] 0.0 /100 WBC Normal [facility] Comment on above: Order Comment: Speci men Type: BLOOD SPECIMENOrdering Facility: [facility] Address: [address] Performed By: #### 5 7021-8 ####[facility] LABCLIA [id number] [address] LABCLIA [id number] [place] [address] [place] Ovalocytes LM Ql (Bld) Few Normal [facility] Comment on above: Order Comment: Speci men Type: BLOOD SPECIMENOrdering Facility: [facility] Address: [address] Performed By: #### 5 7021-8 ####[facility] LABCLIA [id number] [address] LABCLIA [id number] [place] [address] [place] Platelet mean volume (Bld) [Entitic vol] 9.1 fL Normal 9.0-12.7 [facility] Comment on above: Order Comment: Speci men Type: BLOOD SPECIMENOrdering Facility: [facility] Address: [address] Performed By: #### 5 7021-8 ####[facility] LABCLIA [id number] [address] LABCLIA [id number] [place] [address] [place] Platelets (Bld) [#/Vol] 234 10*3/uL Normal 150-400 [facility] Comment on above: Order Comment: Speci men Type: BLOOD SPECIMENOrdering Facility: [facility] Address: [address] [place], [place] [address] Performed By: #### 5 7021-8 ####[facility] LABCLIA [id number] [address] LABCLIA [id number] [place] [address] [place] Platelets Estimate (Bld) [#/Vol] Adequate Normal [facility] Comment on above: Order Comment: Speci men Type: BLOOD SPECIMENOrdering Facility: [facility] Address: [address] [place] [address] Performed By: #### 5 7021-8 ####[facility] LABCLIA [id number] [address] LABCLIA [id number] [place] [address] [place] Polychromasia LM Ql (Bld) Slight Normal [facility] Comment on above: Order Comment: Speci men Type: BLOOD SPECIMENOrdering Facility: [facility] Address: [address] [place] [address] Performed By: #### 5 7021-8 ####[facility] LABCLIA [id number] [address] LABCLIA [id number] [place] [address] [place] RBC (Bld) [#/Vol] 2.58 10*6/uL Low 4.20-6.00 [facility] Comment on above: Order Comment: Speci men Type: BLOOD SPECIMENOrdering Facility: [facility] Address: [address] [place] [address] Performed By: #### 5 7021-8 ####[facility] LABCLIA [id number] [address] LABCLIA [id number] [place] [address] [place] RED CELL MORPH Reviewed: see result s of individual morphologies Normal [facility] Comment on above: Order Comment: Speci men Type: BLOOD SPECIMENOrdering Facility: [facility] Address: [address] [place] [address] Performed By: #### 5 7021-8 ####[facility] LABCLIA [id number] [place], [place] [address] LABCL[facility] [id number] [place] [address] [place] WBC (Bld) [#/Vol] 3.01 10*3/uL Low 3.70-11.00 [facility] Comment on above: Order Comment: Speci men Type: BLOOD SPECIMENOrdering Facility: [facility] Address: [address] [address] Performed By: #### 5 7021-8 ####[facility] LABCLIA [id number] [place] [address] LABCLIA [id number] [place] [address] [place] CNNURSEon 06-06-2022 CNNURSE Normal [facility] CNOVSPon 06-06-2022 CNOVSP Normal [facility] Comprehensive metabolic 2000 panelon 06-06-2022 Albumin [Mass/Vol] 3.5 g/dL Low 3.9-4.9 [facility] Comment on above: Order Comment: Speci men Type: BLOOD SPECIMENOrdering Facility: [facility] Address: [address] [address] Performed By: #### 2 4323-8 ####[facility] LABCLIA [id number] [place] [address] ALP [Catalytic activity/Vol] 148 U/L High 38-113 [facility] Comment on above: Order Comment: Speci men Type: BLOOD SPECIMENOrdering Facility: [facility] Address: [address] Performed By: #### 2 4323-8 ####[facility] LABCLIA [id number] [place] [address] ALT [Catalytic activity/Vol] 43 U/L Normal 10-54 [facility] Comment on above: Order Comment: Speci men Type: BLOOD SPECIMENOrdering Facility: [facility] Address: [address] [address] Performed By: #### 2 4323-8 ####[facility] LABCLIA [id number] [place] [address] Anion gap [Moles/Vol] 8 mmol/L Low 9-18 [facility] Comment on above: Order Comment: Speci men Type: BLOOD SPECIMENOrdering Facility: [facility] Address: [address] [address] Performed By: #### 2 4323-8 ####[facility] LABCLIA [id number] [place] [address] AST [Catalytic activity/Vol] 37 U/L Normal 14-40 [facility] Comment on above: Order Comment: Speci men Type: BLOOD SPECIMENOrdering Facility: [facility] Address: [address] [address] Performed By: #### 2 4323-8 ####[facility] LABCLIA [id number] [place] [address] Bilirubin [Mass/Vol] 0.4 mg/dL Normal 0.2-1.3 [facility] Comment on above: Order Comment: Speci men Type: BLOOD SPECIMENOrdering Facility: [facility] Address: [address] [address] Performed By: #### 2 4323-8 ####[facility] LABCLIA [id number] [place] [address] Calcium [Mass/Vol] 8.8 mg/dL Normal 8.5-10.2 [facility] Comment on above: Order Comment: Speci men Type: BLOOD SPECIMENOrdering Facility: [facility] Address: [address] [place] [address] Performed By: #### 2 4323-8 ####[facility] LABCLIA [id number] [place] [address] Chloride [Moles/Vol] 106 mmol/L High 97-105 [facility] Comment on above: Order Comment: Speci men Type: BLOOD SPECIMENOrdering Facility: [facility] Address: [address] [place] [address] Performed By: #### 2 4323-8 ####[facility] LABCLIA [id number] [place] [address] CO2 [Moles/Vol] 22 mmol/L Normal 22-30 [facility] Comment on above: Order Comment: Speci men Type: BLOOD SPECIMENOrdering Facility: [facility] Address: [address] [place] [address] Performed By: #### 2 4323-8 ####[facility] LABCLIA [id number] [place] [address] Creatinine [Mass/Vol] 0.75 mg/dL Normal 0.73-1.22 [facility] Comment on above: Order Comment: Speci men Type: BLOOD SPECIMENOrdering Facility: [facility] Address: [address] [place] [address] Performed By: #### 2 4323-8 ####[facility] LABCLIA [id number] [place] [address] ESTIMATED GLOMERULAR FILTRATION RATE 101 mL/min/1.73m??? Normal >=60 [facility] Comment on above: Order Comment: Speci men Type: BLOOD SPECIMENOrdering Facility: [facility] Address: [address] [place] [address] Result Comment: Megan mated Glomerular Filtration Rate (eGFR) is calculated using the 2020 CKD-EPI creatinine equation. This equation utilizes serum creatinine, sex, and age as parameters. The creatinine assay has traceable calibration to isotope dilution-mass spectrometry. Refer to KDIGO guidelines for clinical interpretation. In patients with unstable renal function, e.g. those with acute kidney injury, the eGFR may not accurately reflect actual GFR. Performed By: #### 2 4323-8 ####[facility] LABCLIA [id number] [place] [address] Glucose [Mass/Vol] 106 mg/dL High 74-99 [facility] Comment on above: Order Comment: Speci men Type: BLOOD SPECIMENOrdering Facility: [facility] Address: [address] [place] [address] Result Comment: The [place] Diabetes Association (ADA) provides guidance for cutoff values for fasting glucose and random glucose. The ADA defines fasting as no caloric intake for at least 8 hours. Fasting plasma glucose results between 100 to 125 mg/dL indicate increased risk for diabetes (prediabetes).Fasting plasma glucose results greater than or equal to 126 mg/dL meet the criteria for diagnosis of diabetes. In the absence of unequivocal hyperglycemia, results should be confirmed by repeat testing. In a patient with classic symptoms of hyperglycemia or hyperglycemic crisis, random plasma glucose results greater than or equal to 200 mg/dL meet the criteria for diagnosis of diabetes.Reference: Standards of Medical Care in Diabetes 2016, [place] [employer]. Diabetes Care. 2016.39(Suppl 1). Performed By: #### 2 4323-8 ####[facility] LABCLIA [id number] [place] [address] Potassium [Moles/Vol] 4.6 mmol/L Normal 3.7-5.1 [facility] Comment on above: Order Comment: Speci men Type: BLOOD SPECIMENOrdering Facility: [facility] Address: [address] [place] [address] Performed By: #### 2 4323-8 ####[facility] LABCLIA [id number] [place] [address] Protein [Mass/Vol] 6.4 g/dL Normal 6.3-8.0 [facility] Comment on above: Order Comment: Speci men Type: BLOOD SPECIMENOrdering Facility: [facility] Address: [address] [place] [address] Performed By: #### 2 4323-8 ####[facility] LABCLIA [id number] [place] [address] Sodium [Moles/Vol] 136 mmol/L Normal 136-144 [facility] Comment on above: Order Comment: Speci men Type: BLOOD SPECIMENOrdering Facility: [facility] Address: [address] [place] [address] Performed By: #### 2 4323-8 ####[facility] LABCLIA [id number] [place] [address] Urea nitrogen [Mass/Vol] 20 mg/dL Normal 9-24 [facility] Comment on above: Order Comment: Speci men Type: BLOOD SPECIMENOrdering Facility: [facility] Address: [address] [place] [address] Performed By: #### 2 4323-8 ####[facility] LABCLIA [id number] [place] [address] Ferritin SerPl-ncon 2021 Ferritin [Mass/Vol] 427.0 ng/mL Normal 30.3-565.7 [facility] Comment on above: Order Comment: Speci men Type: BLOOD SPECIMENOrdering Facility: [facility] Address: [address] [place] [address] Performed By: #### 5 0190-8, 9, 2275-4, 8 ####[facility] LABCLIA [id number] [place] [id number] [place] Folate SerPl-mCncon 06-06-20 Folate [Mass/Vol] 6.5 ng/mL Normal >4.7 [facility] Comment on above: Order Comment: Speci men Type: BLOOD SPECIMENOrdering Facility: [facility] Address: [address] [place] [address] Performed By: #### 5 0190-8, 9, 2275-4, 2283-8 ####[facility] LABCLIA [id number] [address] [id number] [place] Iron and Iron binding capaci ty panelon 06-06-2022 Iron [Mass/Vol] 39 ug/dL Low 41-186 [facility] Comment on above: Order Comment: Speci men Type: BLOOD SPECIMENOrdering Facility: [facility] Address: [address] [place] [address] Performed By: #### 5 0190-8, 9, 2275-09, 2284-01 ####[facility] LABCLIA [id number] [address] STATES [facility] Iron binding capacity [Mass/Vol] 228 ug/dL Low 232-386 [facility] Comment on above: Order Comment: Speci men Type: BLOOD SPECIMENOrdering Facility: [facility] Address: [address] [place] [address] Performed By: #### 5 0190-8, 2132-02, 2275-09, 2284-01 ####[facility] LABCLIA [id number] [address] STATES OF [facility] Iron/TIBC [Molar ratio] 17.1 % Normal 15.0-57.0 [facility] Comment on above: Order Comment: Speci men Type: BLOOD SPECIMENOrdering Facility: [facility] Address: [address] [place] [address] Performed By: #### 5 0190-8, 9, 2275-09, 2284-01 ####[facility] LABIA [id number] [address] [place] Vit B[facility] Cobalamin (Vitamin B12) [Mass/Vol] 517 pg/mL Normal 232-1245 [facility] Comment on above: Order Comment: Speci men Type: BLOOD SPECIMENOrdering Facility: [facility] Address: [address] [place], [place] [address] Performed By: #### 5 0190-8, 9, 2275-09, 2284-01 ####[facility] LABCLIA [id number] [facility] [address] [id number] [place] XR LSPINE MIN 4 VIEWSon 04-29 XR LSPINE MIN 4 VIEWS EXAMINATION: XR LS PINE MIN 4 VIEWS HISTORY: Low back pain ; left hip pain since falling one week ago COMPARISON: CT abdomen pelvis 11/15/2020 FINDINGS: BONES: No significant spondylosis, scoliosis, fracture, or visible bony lesion. DISC SPACES: Mild narrowing L5-S1. PARASPINOUS: Pancreatic duct stent projecting over upper abdomen, also seen on prior CT study. OTHER: Negative. IMPRESSION: 1. L5-S1 mild degenerative disc disease. Otherwise relatively unremarkable lumbar spine. Electronically authenticated by: REBA REID Date: 2022-05-13 07:55 Normal [facility] CBC W Auto Differential pane l (Bld)on 05-08-2022 Basophils (Bld) [#/Vol] 10*3/uL Normal <0.11 [facility] Comment on above: Order Comment: Speci men Type: BLOOD SPECIMENOrdering Facility: [facility] Address: [address] [place] [address] Performed By: #### 5 7021-8, 02271-0 ####[facility] LABIA [id number] [place] [address] Basophils/100 WBC (Bld) 0.3 % Normal [facility] Comment on above: Order Comment: Speci men Type: BLOOD SPECIMENOrdering Facility: [facility] Address: [address] [place] [address] Performed By: #### 5 7021-8, 15650-8 ####[facility] LABIA [id number] [place] [address] Differential cell count method Nom (Bld) Auto Normal [facility] Comment on above: Order Comment: Speci men Type: BLOOD SPECIMENOrdering Facility: [facility] Address: [address] [address] Performed By: #### 5 7021-8, 01646-0 ####[facility] LABCLIA [id number] [place] [address] Eosinophils (Bld) [#/Vol] 0.13 10*3/uL Normal <0.46 [facility] Comment on above: Order Comment: Speci men Type: BLOOD SPECIMENOrdering Facility: [facility] Address: [address] [place] [address] Performed By: #### 5 7021-8, 54914-1 ####[facility] LABCLIA [id number] [place] [address] Eosinophils/100 WBC (Bld) 3.9 % Normal [facility] Comment on above: Order Comment: Speci men Type: BLOOD SPECIMENOrdering Facility: [facility] Address: [address] [place] [address] Performed By: #### 5 7021-8, 55542-1 ####[facility] LABCLIA [id number] [place] [address] Erythrocyte distribution width (RBC) [Ratio] 15.9 % High 11.5-15.0 [facility] Comment on above: Order Comment: Speci men Type: BLOOD SPECIMENOrdering Facility: [facility] Address: [address] [place] [address] Performed By: #### 5 7021-8, 61098-9 ####[facility] LABCLIA [id number] [place] [address] Hematocrit (Bld) [Volume fraction] 30.2 % Low 39.0-51.0 [facility] Comment on above: Order Comment: Speci men Type: BLOOD SPECIMENOrdering Facility: [facility] Address: [address] [place] [address] Performed By: #### 5 7021-8, 89634-3 ####[facility] LABCLIA [id number] [place] [address] Hemoglobin (Bld) [Mass/Vol] 9.4 g/dL Low 13.0-17.0 [facility] Comment on above: Order Comment: Speci men Type: BLOOD SPECIMENOrdering Facility: [facility] Address: [address] Performed By: #### 5 7021-8, 25797-2 ####[facility] LABCLIA [id number] [place] [address] Immature granulocytes (Bld) [#/Vol] 10*3/uL Normal <0.10 [facility] Comment on above: Order Comment: Speci men Type: BLOOD SPECIMENOrdering Facility: [facility] Address: [address] [address] Performed By: #### 5 7021-8, 81745-0 ####[facility] LABCLIA [id number] [place] [address] Immature granulocytes/100 WBC (Bld) 0.6 % Normal [facility] Comment on above: Order Comment: Speci men Type: BLOOD SPECIMENOrdering Facility: [facility] Address: [address] [place], [place] [address] Performed By: #### 5 7021-8, 97421-7 ####[facility] LABCLIA [id number] [place] [address] Lymphocytes (Bld) [#/Vol] 1.29 10*3/uL Normal 1.00-4.00 [facility] Comment on above: Order Comment: Speci men Type: BLOOD SPECIMENOrdering Facility: [facility] Address: [address] Performed By: #### 5 7021-8, 41390-3 ####[facility] LABIA [id number] [place] [address] Lymphocytes/100 WBC (Bld) 38.5 % Normal [facility] Comment on above: Order Comment: Speci men Type: BLOOD SPECIMENOrdering Facility: [facility] Address: [address] [place], [place] [address] Performed By: #### 5 7021-8, 29261-7 ####[facility] LABCLIA [id number] [place] [address] MCH (RBC) [Entitic mass] 33.2 pg Normal 26.0-34.0 [facility] Comment on above: Order Comment: Speci men Type: BLOOD SPECIMENOrdering Facility: [facility] Address: [address] [place] [address] Performed By: #### 5 7021-8, 04677-8 ####[facility] LABCLIA [id number] [place] [address] MCHC (RBC) [Mass/Vol] 31.1 g/dL Normal 30.5-36.0 [facility] Comment on above: Order Comment: Speci men Type: BLOOD SPECIMENOrdering Facility: [facility] Address: [address] [place] [address] Performed By: #### 5 7021-8, 85644-3 ####[facility] LABIA [id number] [place] [address] MCV (RBC) [Entitic vol] 106.7 fL High 80.0-100.0 [facility] Comment on above: Order Comment: Speci men Type: BLOOD SPECIMENOrdering Facility: [facility] Address: [address] [place] [address] Performed By: #### 5 7021-8, 49928-1 ####[facility] LABIA [id number] [place] [address] Monocytes (Bld) [#/Vol] 0.41 10*3/uL Normal <0.87 [facility] Comment on above: Order Comment: Speci men Type: BLOOD SPECIMENOrdering Facility: [facility] Address: [address] [place] [address] Performed By: #### 5 7021-8, 01018-4 ####[facility] LABCLIA [id number] [place] [address] Monocytes/100 WBC (Bld) 12.2 % Normal [facility] Comment on above: Order Comment: Speci men Type: BLOOD SPECIMENOrdering Facility: [facility] Address: [address] [place] [address] Performed By: #### 5 7021-8, 02863-1 ####[facility] LABCLIA [id number] [place] [address] Neutrophils (Bld) [#/Vol] 1.49 10*3/uL Normal 1.45-7.50 [facility] Comment on above: Order Comment: Speci men Type: BLOOD SPECIMENOrdering Facility: [facility] Address: [address] [place] [address] Performed By: #### 5 7021-8, 73110-3 ####[facility] LABCLIA [id number] [place] [address] Neutrophils/100 WBC (Bld) 44.5 % Normal [facility] Comment on above: Order Comment: Speci men Type: BLOOD SPECIMENOrdering Facility: [facility] Address: [address] [place] [address] Performed By: #### 5 7021-8, 74650-0 ####[facility] LABCLIA [id number] [place] [address] Nucleated RBC (Bld) [#/Vol] 10*3/uL Normal <0.01 [facility] Comment on above: Order Comment: Speci men Type: BLOOD SPECIMENOrdering Facility: [facility] Address: [address] [place] [address] Performed By: #### 5 7021-8, 86904-7 ####[facility] LABCLIA [id number] [place] [address] Nucleated RBC/100 WBC (Bld) [Ratio] 0.0 /100 WBC Normal [facility] Comment on above: Order Comment: Speci men Type: BLOOD SPECIMENOrdering Facility: [facility] Address: [address] [place] [address] Performed By: #### 5 7021-8, 48974-9 ####[facility] LABCLIA [id number] [place] [address] Platelet mean volume (Bld) [Entitic vol] 8.7 fL Low 9.0-12.7 [facility] Comment on above: Order Comment: Speci men Type: BLOOD SPECIMENOrdering Facility: [facility] Address: [address] [place] [address] Performed By: #### 5 7021-8, 08298-0 ####[facility] LABIA [id number] [place] [address] Platelets (Bld) [#/Vol] 238 10*3/uL Normal 150-400 [facility] Comment on above: Order Comment: Speci men Type: BLOOD SPECIMENOrdering Facility: [facility] Address: [address] [place] [address] Performed By: #### 5 7021-8, 84799-5 ####[facility] LABIA [id number] [place] [address] RBC (Bld) [#/Vol] 2.83 10*6/uL Low 4.20-6.00 [facility] Comment on above: Order Comment: Speci men Type: BLOOD SPECIMENOrdering Facility: [facility] Address: [address] [place], [place] [address] Performed By: #### 5 7021-8, 80790-5 ####[facility] LABIA [id number] [place] [address] WBC (Bld) [#/Vol] 3.35 10*3/uL Low 3.70-11.00 [facility] Comment on above: Order Comment: Speci men Type: BLOOD SPECIMENOrdering Facility: [facility] Address: [address] [place] [address] Performed By: #### 5 7021-8, 14570-4 ####[facility] LABCLIA [id number] [place] [address] CNNURSEon 05-08-2022 CNNURSE Normal [facility] CNOVSPon 05-08-2022 CNOVSP Normal [facility] Comprehensive metabolic 2000 panelon 05-08-2022 Albumin [Mass/Vol] 3.7 g/dL Low 3.9-4.9 [facility] Comment on above: Order Comment: Speci men Type: BLOOD SPECIMENOrdering Facility: [facility] Address: [address] [address] Performed By: #### 2 532-0, ####[facility] LABCLIA [id number] [place] [address] ALP [Catalytic activity/Vol] 154 U/L High 38-113 [facility] Comment on above: Order Comment: Speci men Type: BLOOD SPECIMENOrdering Facility: [facility] Address: [address] Performed By: #### 2 532-0, 99918-6 ####[facility] LABCLIA [id number] [place] [address] ALT [Catalytic activity/Vol] 32 U/L Normal 10-54 [facility] Comment on above: Order Comment: Speci men Type: BLOOD SPECIMENOrdering Facility: [facility] Address: [address] Performed By: #### 2 532-0, 01112-3 ####[facility] LABCLIA [id number] [place] [address] Anion gap [Moles/Vol] 9 mmol/L Normal 9-18 [facility] Comment on above: Order Comment: Speci men Type: BLOOD SPECIMENOrdering Facility: [facility] Address: [address] Performed By: #### 2 532-0, ####[facility] LABCLIA [id number] [place] [address] AST [Catalytic activity/Vol] 30 U/L Normal 14-40 [facility] Comment on above: Order Comment: Speci men Type: BLOOD SPECIMENOrdering Facility: [facility] Address: [address] [place] [address] Performed By: #### 2 532-0, ####[facility] LABCLIA [id number] [place] [address] Bilirubin [Mass/Vol] 0.4 mg/dL Normal 0.2-1.3 [facility] Comment on above: Order Comment: Speci men Type: BLOOD SPECIMENOrdering Facility: [facility] Address: [address] [place] [address] Performed By: #### 2 532-0, ####[facility] LABCLIA [id number] [place] [address] Calcium [Mass/Vol] 8.9 mg/dL Normal 8.5-10.2 [facility] Comment on above: Order Comment: Speci men Type: BLOOD SPECIMENOrdering Facility: [facility] Address: [address] [place] [address] Performed By: #### 2 532-0, ####[facility] LABCLIA [id number] [place] [address] Chloride [Moles/Vol] 110 mmol/L High 97-105 [facility] Comment on above: Order Comment: Speci men Type: BLOOD SPECIMENOrdering Facility: [facility] Address: [address] [place] [address] Performed By: #### 2 532-0, ####[facility] LABCLIA [id number] [place] [address] CO2 [Moles/Vol] 17 mmol/L Low 22-30 [facility] Comment on above: Order Comment: Speci men Type: BLOOD SPECIMENOrdering Facility: [facility] Address: [address] [address] Performed By: #### 2 532-0, 76045-6 ####[facility] LABCLIA [id number] [place] [address] Creatinine [Mass/Vol] 0.76 mg/dL Normal 0.73-1.22 [facility] Comment on above: Order Comment: Speci men Type: BLOOD SPECIMENOrdering Facility: [facility] Address: [address] [place] [address] Performed By: #### 2 532-0, 04319-8 ####[facility] LABCLIA [id number] [place] [address] ESTIMATED GLOMERULAR FILTRATION RATE 100 mL/min/1.73m??? Normal >=60 [facility] Comment on above: Order Comment: Speci men Type: BLOOD SPECIMENOrdering Facility: [facility] Address: [address] [place] [address] Result Comment: Megan mated Glomerular Filtration Rate (eGFR) is calculated using the 2020 CKD-EPI creatinine equation. This equation utilizes serum creatinine, sex, and age as parameters. The creatinine assay has traceable calibration to isotope dilution-mass spectrometry. Refer to KDIGO guidelines for clinical interpretation. In patients with unstable renal function, e.g. those with acute kidney injury, the eGFR may not accurately reflect actual GFR. Performed By: #### 2 532-0, 11238-4 ####[facility] LABIA [id number] [place] [address] Glucose [Mass/Vol] 96 mg/dL Normal 74-99 [facility] Comment on above: Order Comment: Speci men Type: BLOOD SPECIMENOrdering Facility: [facility] Address: [address] [place] [address] Result Comment: The [place] [employer] (ADA) provides guidance for cutoff values for fasting glucose and random glucose. The ADA defines fasting as no caloric intake for at least 8 hours. Fasting plasma glucose results between 100 to 125 mg/dL indicate increased risk for diabetes (prediabetes).Fasting plasma glucose results greater than or equal to 126 mg/dL meet the criteria for diagnosis of diabetes. In the absence of unequivocal hyperglycemia, results should be confirmed by repeat testing. In a patient with classic symptoms of hyperglycemia or hyperglycemic crisis, random plasma glucose results greater than or equal to 200 mg/dL meet the criteria for diagnosis of diabetes.Reference: Standards of Medical Care in Diabetes 2016, [place] [employer]. Diabetes Care. 2016.39(Suppl 1). Performed By: #### 2 532-0, ####[facility] LABCLIA [id number] [place] [address] Potassium [Moles/Vol] 4.1 mmol/L Normal 3.7-5.1 [facility] Comment on above: Order Comment: Speci men Type: BLOOD SPECIMENOrdering Facility: [facility] Address: [address] [place] [address] Performed By: #### 2 532-0, ####[facility] LABCLIA [id number] [place] [address] Protein [Mass/Vol] 6.8 g/dL Normal 6.3-8.0 [facility] Comment on above: Order Comment: Speci men Type: BLOOD SPECIMENOrdering Facility: [facility] Address: [address] [address] Performed By: #### 2 532-0, ####[facility] LABCLIA [id number] [place] [address] Sodium [Moles/Vol] 136 mmol/L Normal 136-144 [facility] Comment on above: Order Comment: Speci men Type: BLOOD SPECIMENOrdering Facility: [facility] Address: [address] [address] Performed By: #### 2 532-0, ####[facility] LABCLIA [id number] [place] [address] Urea nitrogen [Mass/Vol] 30 mg/dL High 9-24 [facility] Comment on above: Order Comment: Speci men Type: BLOOD SPECIMENOrdering Facility: [facility] Address: [address] [place] [address] Performed By: #### 2 532-0, 31082-5 ####[facility] LABCLIA [id number] [place] [address] Ferritin SerPl-mCncon 2021 Ferritin [Mass/Vol] 644.0 ng/mL High 30.3-565.7 [facility] Comment on above: Order Comment: Speci men Type: BLOOD SPECIMENOrdering Facility: [facility] Address: [address] [place] [address] Performed By: #### 4 542-7, 29814-2, 2276-4 ####[facility] LABCLIA [id number] [place] [address] [place] Folate SerPl-mCncon 05-08-20 22 Folate [Mass/Vol] 7.3 ng/mL Normal >4.7 [facility] Comment on above: Order Comment: Speci men Type: BLOOD SPECIMENOrdering Facility: [facility] Address: [address] [place] [address] Performed By: #### 2 132-9, 2284-8 ####[facility] LABCLIA [id number] [place] [address] [place] Haptoglob SerPl-mCncon 05-08 Haptoglobin [Mass/Vol] 122 mg/dL Normal 31-238 [facility] Comment on above: Order Comment: Speci men Type: BLOOD SPECIMENOrdering Facility: [facility] Address: [address] [place] [address] Performed By: #### 4 542-7, 32080-9, 2276-4 ####[facility] LABCLIA [id number] [place] [address] [place] Iron and Iron binding capaci ty panelon 05-08-2022 Iron [Mass/Vol] 48 ug/dL Normal 41-186 [facility] Comment on above: Order Comment: Speci men Type: BLOOD SPECIMENOrdering Facility: [facility] Address: [address] [place] [address] Performed By: #### 4 542-7, 02403-4, 2276-4 ####[facility] LABCLIA [id number] [place] [address] [place] Iron binding capacity [Mass/Vol] 217 ug/dL Low 232-386 [facility] Comment on above: Order Comment: Speci men Type: BLOOD SPECIMENOrdering Facility: [facility] Address: [address] [place] [address] Performed By: #### 4 542-7, 73515-3, 6-4 ####[facility] LABCLIA [id number] [place] [address] [place] Iron/TIBC [Molar ratio] 22.1 % Normal 15.0-57.0 [facility] Comment on above: Order Comment: Speci men Type: BLOOD SPECIMENOrdering Facility: [facility] Address: [address] [place] [address] Performed By: #### 4 542-7, 11834-6, 2276-4 ####[facility] LABCLIA [id number] [place] [address] [place] LDH SerPl-cCncon 05-08-2022 LDH [Catalytic activity/Vol] 138 U/L Normal 135-225 [facility] Comment on above: Order Comment: Speci men Type: BLOOD SPECIMENOrdering Facility: [facility] Address: [address] [place] [address] Performed By: #### 2 532-0, 25677-1 ####[facility] LABCLIA [id number] [place] [address] Retics #on 05-08-2022 Reticulocytes (Bld) [#/Vol] 0.71899 10*3/uL Normal 0.018-0.10 0 [facility] Comment on above: Order Comment: Speci men Type: BLOOD SPECIMENOrdering Facility: [facility] Address: [address] [place] [address] Performed By: #### 5 7021-8, 96709-5 ####[facility] LABCLIA [id number] [place] [address] Reticulocytes (Bld) [#/Vol]o n 05-08-2022 Reticulocytes/100 RBC (Bld) 2.2 % High 0.4-2.0 [facility] Comment on above: Order Comment: Speci men Type: BLOOD SPECIMENOrdering Facility: [facility] Address: [address] [place] [address] Performed By: #### 5 7021-8, 96685-6 ####[facility] LABCLIA [id number] [place] [address] Vit B12 SerPl-ncon 022 Cobalamin (Vitamin B12) [Mass/Vol] 574 pg/mL Normal 232-1245 [facility] Comment on above: Order Comment: Speci men Type: BLOOD SPECIMENOrdering Facility: [facility] Address: [address] [place] [address] Performed By: #### 2 132-9, 2284-8 ####[facility] LABCLIA [id number] [address] [address] [place] LIPID PROFILEon 02-04-2022 CHOL-HDL RATIO NORM SEE BELOW Normal [facility] Comment on above: Result Comment: 3.3 - 4.4 LOW RISK 4.4 - 7.1 AVERAGE RISK 7.1 - 11.0 MODERATE RISK >11.0 HIGH RISK Performed By: #### L IPID, CMP #### [facility] [address] [place] [address] [address] [address] Mel Barrientos Cholesterol [Mass/Vol] 100 mg/dL Normal <=200 [facility] Comment on above: Performed By: #### L IPID, CMP #### [facility] [address] [address] [address] Mel Barrientos Cholesterol in HDL [Mass/Vol] 20 mg/dL Critically low 40-60 [facility] Comment on above: Performed By: #### L IPID, CMP #### [facility] [address] [address] [address] Mel Barrientos Cholesterol in LDL [Mass/Vol] 63.6 mg/dL Normal [facility] Comment on above: Performed By: #### L IPID, CMP #### [facility] [address] [address] [address] Mel Barrientos Cholesterol.total/Cho lesterol in HDL [Mass ratio] 5.0 {ratio} Normal [facility] Comment on above: Performed By: #### L IPID, CMP #### [facility] [address] [address] [address] Mel Barrientos HDL NORMAL > or = 60 mg/dl - LO W CARDIOVASCULAR RISK <40 mg/dl - HIGH CARDIOVASCULAR RISK Normal [facility] Comment on above: Performed By: #### L IPID, CMP #### [facility] [address] [place] [address] Dr. Mel Barrientos LDL CALC NORMAL SEE BELOW Normal [facility] Comment on above: Result Comment: <100 mg/dl OPTIMAL 100 - 129 mg/dl NEAR OR ABOVE OPTIMAL 130 - 159 mg/dl BORDERLINE HIGH 160 - 189 mg/dl HIGH >190 mg/dl VERY HIGH Performed By: #### L IPID, CMP #### [facility] [address] [address] [address] Mel Barrientos Triglyceride [Mass/Vol] 82 mg/dL Normal <=150 [facility] Comment on above: Performed By: #### L IPID, CMP #### [facility] [address] [address] [address] Mel Barrientos VLDL CALC 16.4 mg/dL Normal [facility] Comment on above: Performed By: #### L IPID, CMP #### [facility] [address] [place] [address] Dr. Mel Barrientos PROF CHEM 8 (BAS METB)on Anion gap [Moles/Vol] 15.8 mmol/L Normal [facility] Comment on above: Performed By: #### L IPID, CMP #### [facility] [address] [place] [address] Dr. Mel Barrientos Calcium [Mass/Vol] 8.5 mg/dL Normal 8.5-10.1 [facility] Comment on above: Performed By: #### L IPID, CMP #### [facility] [address] [place] [address] Dr. Mel Barrientos Chloride [Moles/Vol] 109 mmol/L Critically high 98-107 [facility] Comment on above: Performed By: #### L IPID, CMP #### [facility] [address] [place] [address] Dr. Mel Barrientos CO2 [Moles/Vol] 17.7 mmol/L Critically low 21.0-32.0 [facility] Comment on above: Performed By: #### L IPID, CMP #### [facility] [address] [place] [address] Dr. Mel Barrientos Creatinine [Mass/Vol] 0.79 mg/dL Normal 0.70-1.30 [facility] Comment on above: Performed By: #### L IPID, CMP #### [facility] [address] [place] [address] Dr. Mel Barrientos EGFR-AF TURKMEN >60 Normal >=60 [facility] Comment on above: Performed By: #### L IPID, CMP #### [facility] [address] [place] [address] Dr. Mel Barrientos EGFR-NON AF TURKMEN >60 Normal >=60 [facility] Comment on above: Performed By: #### L IPID, CMP #### [facility] [address] [place] [address] Dr. Mel Barrientos Glucose [Mass/Vol] 116 mg/dL Critically high 74-106 [facility] Comment on above: Performed By: #### L IPID, CMP #### [facility] [address] [place] [address] Dr. Mel Barrientos Potassium [Moles/Vol] 4.5 mmol/L Normal 3.5-5.1 [facility] Comment on above: Performed By: #### L IPID, CMP #### [facility] [address] [place] [address] Dr. Mel Barrientos Sodium [Moles/Vol] 138 mmol/L Normal 136-145 [facility] Comment on above: Performed By: #### L IPID, CMP #### [facility] [address] [place] [address] Dr. Mel Barrientos Urea nitrogen [Mass/Vol] 29.0 mg/dL Critically high 7.0-18.0 [facility] Comment on above: Performed By: #### L IPID, CMP #### [facility] [address] [place] [address] Dr. Mel Barrientos Urea nitrogen/Creatinine [Mass ratio] 36.7 mg/mg Normal [facility] Comment on above: Performed By: #### L IPID, CMP #### [facility] [address] [place] [address] Dr. Mel Andrews 02-04-2022 AST [Catalytic activity/Vol] 35 U/L Normal 15-37 [facility] Comment on above: Performed By: #### B MP, AST, ALT, LIPID #### [facility] [address] [place] [address] Dr. [facility]-04-2022 ALT [Catalytic activity/Vol] 64 U/L Critically high 16-63 [facility] Comment on above: Performed By: #### L IPID, CMP #### [facility] [address] [place] [address] Dr. 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) Ischemic cardiomyopathy (414.8) (I25.5) Hyperlipidemia (272.4) (E78.5) History of PTCA (V45.82) (Z98.61) Essential hypertension (401.9) (I10) Diabetes (250.00) (E11.9) Arteriosclerosis of carotid artery (433.10) (I65.29) Anticoagulated (V58.61) (Z79.01) Former smoker (V15.82) (Z87.891) Body mass index (BMI) of 21.0 to 21.9 in adult (V85.1) (Z68.21) Orders Arteriosclerosis of carotid artery, Essential hypertension, Hyperlipidemia, Ischemic cardiomyopathy, PAF (paroxysmal atrial fibrillation) ALT - Alanine Aminotransferase, Serum; Status:Active - Retrospective Authorization; Requested for:[id number]; AST; Status:Active - Retrospective Authorization; Requested for:[id number]; Basic Metabolic Panel; Status:Active - Retrospective Authorization; Requested for:[id number]; Lipid Panel; Status:Active - Retrospective Authorization; Requested for:[id number]; SocHx: Former smoker Tobacco Use Screening; Status:Complete; Done: [id number] Patient Instructions By signing my name below, I, Gill Hart LPN, Scribe, attest that this documentation has been prepared under the direction and in the presence of Dr. Irving Abreu DO. All medical record entries made by the Scribe were at my direction and personally dictated by me. I have reviewed the chart and agree that the record accurately reflects my personal performance of the history, physical exam, discussion and plan. Please bring all medicines, vitamins, and herbal supplements with you when you come to the office. Prescriptions will not be filled unless you are compliant with your follow up appointments or have a follow up appointment scheduled as per instruction of your physician. Refills should be requested at the time of your visit. Follow up in 1 year. Chief Complaint ROCIO JACKSON is being seen for an annual follow-up of. Patient is a 66-year-old gentleman returns for follow-up. He is doing well from a cardiovascular standpoint with no angina, heart failure hospitalizations. He does have an ischemic cardiomyopathy currently asymptomatic. Stress perfusion imaging from 2018 revealed anterior scar with ejection fraction of 40%. He is status post anterior MD, with PCI of the LAD in 2010. He does have underlying paroxysmal A. fib, colon cancer with a Whipple procedure performed reportedly with no recurrence. He does have underlying anxiety disorder. He has had no bleeding with the Xarelto therapy he remains hemodynamically stable Recommendations, continue current therapies and follow-up in 1 year Surgical History Problems History of Cholecystectomy History of Complete colonoscopy Managed By: Mary TOVAR, Earnest Mann (Gastroenterology) History of Esophagogastroduodenoscopy History of Percutaneous transluminal coronary angioplasty Current Meds Medication NameInstruction Atorvastatin Calcium 40 MG Oral TabletTAKE 1 TABLET AT BEDTIME. Creon [id number] UNIT Oral Capsule Delayed Release Particles1 tablet 3 times daily before meals Eliquis 2.5 MG Oral TabletTake one tablet by mouth twice a day FLUoxetine HCl - 20 MG Oral TabletTAKE 1 TABLET DAILY. Jardiance 25 MG Oral TabletTAKE 1 TABLET BY MOUTH ONCE DAILY metFORMIN HCl - 1000 MG Oral TabletTAKE 1 TABLET EVERY 12 HOURS. Metoprolol Succinate ER 25 MG Oral Tablet Extended Release 24 HourTAKE 1 TABLET DAILY. Nitroglycerin 0.4 MG Sublingual Tablet SublingualPLACE 1 TABLET UNDER THE TONGUE EVERY 5 MINUTES FOR UP TO 3 DOSES NEEDED FOR CHEST PAIN.CALL 911 IF PAIN PERSISTS. Reglan 10 MG Oral TabletTAKE 1 TABLET 3 TIMES DAILY BEFORE MEALS. Xanax 0.25 MG Oral TabletTAKE 1 TABLET EVERY 12 HOURS NEEDED. Allergies Medication OPHELIA Inhibitors Recorded By: Mackenzie Solis; 07/02/2021 10:36:00 AM Social History Problems Caffeine use (V49.89) (Z78.9) Former smoker (V15.82) (Z87.891) No alcohol use No illicit drug use Review of Systems Constitutional: not feeling tired. Cardiovascular: no intermittent leg claudication and as noted in HPI. Respiratory: no cough and no shortness of breath. Gastrointestinal: no change in bowel habits and no blood in stools. Integumentary: no skin rashes. Neurological: no seizures and no frequent falls. All other systems have been reviewed and are negative for complaint. Vitals Vital Signs Recorded: [id number] 11:21AM Heart Rate80, R Radial Twyceyro457, RUE Fwtiywtar76, RUE Height5 ft 8 in Sdfhgr684 lb BMI Exwkechntd83.9 kg/m2 BSA Calculated1.78 Tobacco Useb) No PHQ-2 #1. Over the last 2 weeks have you felt down, depressed or hopeless? (If yes, answer PHQ-9 below)No PHQ-2 #2. Over the last 2 weeks have you felt little interest or pleasure in doing things? (If yes, answer PHQ-9 below)No Falls Screening (Age 18+)c) Not medically indicated Physical Exam Constitutional: alert and in no acute distress. Neck: n (more content not included)... Normal [facility] VITAMIN B12on 11-26-2021 Cobalamin (Vitamin B12) [Mass/Vol] 609.0 pg/mL Normal 193.0-986. 0 [facility] Comment on above: Performed By: #### P T, PTT #### [facility] [address] [place] [address] Dr. Mel Barrientos CBC AUTO DIFFon 11-12-2021 BASO # 0.0 103/ul Normal 0.0-0.1 [facility] Comment on above: Performed By: #### C BC #### [facility] [address] [place] [address] Dr. Mel Barrientos Basophils/100 WBC (Bld) 0.4 % Normal 0.2-2.0 [facility] Comment on above: Performed By: #### C BC #### [facility] [address] [place] [address] Dr. Mel Barrientos EO # 0.1 103/ul Normal 0.0-0.7 [facility] Comment on above: Performed By: #### C BC #### [facility] [address] [place] [address] Dr. Mel Barrientos Eosinophils/100 WBC (Bld) 1.6 % Normal 0.9-7.0 [facility] Comment on above: Performed By: #### C BC #### [facility] [address] [place] [address] Dr. Mel Barrientos Erythrocyte distribution width (RBC) [Ratio] 14.4 % Normal 11.0-15.0 [facility] Comment on above: Performed By: #### C BC #### [facility] [address] [place] [address] Dr. Mel Barrientos Hematocrit (Bld) [Volume fraction] 38.1 % Critically low 42.0-54.0 [facility] Comment on above: Performed By: #### C BC #### [facility] [address] [place] [address] Dr. Mel Barrientos Hemoglobin (Bld) [Mass/Vol] 12.5 g/dL Critically low 14.0-18.0 [facility] Comment on above: Performed By: #### C BC #### [facility] [address] [place] [address] Dr. Mel Barrientos IG # 0.02 10e3/ul Normal 0.00-0.03 [facility] Comment on above: Performed By: #### C BC #### [facility] [address] [place] [address] Dr. Mel Barrientos IG % 0.4 % Normal 0.0-0.5 [facility] Comment on above: Performed By: #### C BC #### [facility] [address] [place] [address] Dr. Mel Barrientos LYMPH # 2.2 103/ul Normal 1.2-3.8 [facility] Comment on above: Performed By: #### C BC #### [facility] [address] [place] [address] Dr. Mel Barrientos Lymphocytes/100 WBC (Bld) 43.2 % Normal 20.5-60.0 [facility] Comment on above: Performed By: #### C BC #### [facility] [address] [place] [address] Dr. Mel Barrientos MANUAL DIFF REQ NO Normal [facility] Comment on above: Performed By: #### C BC #### [facility] [address] [place] [address] Dr. Mel Barrientos MCH (RBC) [Entitic mass] 35.1 pg Critically high 25.9-34.0 [facility] Comment on above: Performed By: #### C BC #### [facility] [address] [place] [address] Dr. Mel Barrientos MCHC (RBC) [Mass/Vol] 32.8 g/dL Normal 29.9-35.2 [facility] Comment on above: Performed By: #### C BC #### [facility] [address] [place] [address] Dr. Mel Barrientos MCV (RBC) [Entitic vol] 107.0 fL Critically high 80.0-94.0 [facility] Comment on above: Result Comment: MACR OCYTOSIS CONFIRMED ON PERIPHERAL SMEAR Performed By: #### C BC #### [facility] [address] [place] [address] Dr. Mel Barrientos MONO # 0.5 103/ul Normal 0.3-0.8 [facility] Comment on above: Performed By: #### C BC #### [facility] [address] [place] [address] Dr. Mel Barrientos Monocytes/100 WBC (Bld) 9.4 % Normal 1.7-12.0 [facility] Comment on above: Performed By: #### C BC #### [facility] [address] [place] [address] Dr. Mel Barrientos NEUT # 2.3 103/ul Normal 1.4-6.5 [facility] Comment on above: Performed By: #### C BC #### [facility] [address] [place] [address] Dr. Mel Barrientos Neutrophils/100 WBC (Bld) 45.0 % Normal 43.0-75.0 [facility] Comment on above: Performed By: #### C BC #### [facility] [address] [place] [address] Dr. Mel Barrientos Platelet mean volume (Bld) [Entitic vol] 9.3 fL Critically low 9.5-13.5 [facility] Comment on above: Performed By: #### C BC #### [facility] [address] [place] [address] Dr. Mel Barrientos PLT 307 103/ul Normal 150-450 [facility] Comment on above: Performed By: #### C BC #### [facility] [address] [place] [address] Dr. Mel Barrientos RBC 3.56 106/ul Critically low 4.70-6.10 [facility] Comment on above: Performed By: #### C BC #### [facility] [address] [place] [address] Dr. Mel Barrientos WBC 5.1 103/ul Normal 4.0-11.0 [facility] Comment on above: Performed By: #### C BC #### [facility] [address] [place] [address] Dr. Mel Barrientos PROF 14(COMP METB)on 022 Albumin [Mass/Vol] 2.3 g/dL Critically low 3.4-5.0 [facility] Comment on above: Performed By: #### L IPID, CMP #### [facility] [address] [place] [address] Dr. Mel Barrientos Albumin/Globulin [Mass ratio] 0.6 {ratio} Normal [facility] Comment on above: Performed By: #### L IPID, CMP #### [facility] [address] [place] [address] Dr. Mel Barrientos ALP [Catalytic activity/Vol] 189 U/L Critically high 46-116 [facility] Comment on above: Performed By: #### L IPID, CMP #### [facility] [address] [place] [address] Dr. Mel Barrientos ALT [Catalytic activity/Vol] 86 U/L Critically high 16-63 [facility] Comment on above: Performed By: #### L IPID, CMP #### [facility] [address] [place] [address] Dr. Mel Barrientos Anion gap [Moles/Vol] 15.4 mmol/L Normal [facility] Comment on above: Performed By: #### L IPID, CMP #### [facility] [address] [place] [address] Dr. Mel Barrientos AST [Catalytic activity/Vol] 67 U/L Critically high 15-37 [facility] Comment on above: Performed By: #### L IPID, CMP #### [facility] [address] [place] [address] Dr. Mel Barrientos Bilirubin [Mass/Vol] 0.4 mg/dL Normal 0.2-1.0 [facility] Comment on above: Performed By: #### L IPID, CMP #### [facility] [address] [place] [address] Dr. Mel Barrientos Calcium [Mass/Vol] 7.7 mg/dL Critically low 8.5-10.1 [facility] Comment on above: Performed By: #### L IPID, CMP #### [facility] [address] [place] [address] Dr. Mel Barrientos Chloride [Moles/Vol] 106 mmol/L Normal 98-107 [facility] Comment on above: Performed By: #### L IPID, CMP #### [facility] [address] [place] [address] Dr. Mel Barrientos CO2 [Moles/Vol] 17.7 mmol/L Critically low 21.0-32.0 [facility] Comment on above: Performed By: #### L IPID, CMP #### [facility] [address] [place] [address] Dr. Mel Barrientos Creatinine [Mass/Vol] 0.91 mg/dL Normal 0.70-1.30 [facility] Comment on above: Performed By: #### L IPID, CMP #### [facility] [address] [place] [address] Dr. Mel Barrientos EGFR-AF TURKMEN >60 Normal >=60 [facility] Comment on above: Performed By: #### L IPID, CMP #### [facility] [address] [place] [address] Dr. Mel Barrientos EGFR-NON AF TURKMEN >60 Normal >=60 [facility] Comment on above: Performed By: #### L IPID, CMP #### [facility] [address] [place] [address] Dr. Mel Barrientos Globulin (S) [Mass/Vol] 3.8 g/dL Normal [facility] Comment on above: Performed By: #### L IPID, CMP #### [facility] [address] [place] [address] Dr. Mel Barrientos Glucose [Mass/Vol] 77 mg/dL Normal 74-106 [facility] Comment on above: Performed By: #### L IPID, CMP #### [facility] [address] [place] [address] Dr. Mel Barrientos Potassium [Moles/Vol] 4.1 mmol/L Normal 3.5-5.1 [facility] Comment on above: Performed By: #### L IPID, CMP #### [facility] [address] [place] [address] Dr. Mel Barrientos Protein [Mass/Vol] 6.1 g/dL Critically low 6.4-8.2 [facility] Comment on above: Performed By: #### L IPID, CMP #### [facility] [address] [place] [address] Dr. Mel Barrientos Sodium [Moles/Vol] 135 mmol/L Critically low 136-145 [facility] Comment on above: Performed By: #### L IPID, CMP #### [facility] [address] [place] [address] Dr. Mel Barrientos Urea nitrogen [Mass/Vol] 25.0 mg/dL Critically high 7.0-18.0 [facility] Comment on above: Performed By: #### L IPID, CMP #### [facility] [address] [place] [address] Dr. Mel Barrientos Urea nitrogen/Creatinine [Mass ratio] 27.5 mg/mg Normal [facility] Comment on above: Performed By: #### L IPID, CMP #### [facility] [address] [place] [address] Dr. Mel Barrientos GLYCOHEMOGLOBIN A1Con 2021 ADA RECOMMENDATION ADA THERAPEUTIC TARG ET 6.0 - 7.0 ACTION SUGGESTED > 7.0 [facility] Comment on above: Performed By: #### L IPID, CMP #### [facility] [address] [place] [address] Dr. Mel Barrientos Glucose [Mass/Vol] 100 mg/dL Normal [facility] Comment on above: Performed By: #### L IPID, CMP #### [facility] [address] [address] [address] Mel Barrientos HbA1c (Bld) [Mass fraction] 5.1 % Normal <=6.0 [facility] Comment on above: Performed By: #### L IPID, CMP #### [facility] [address] [address] [address] Mel Barrientos LIPID PROFILEon 10-10-2021 CHOL-HDL RATIO NORM SEE BELOW Normal [facility] Comment on above: Result Comment: 3.3 - 4.4 LOW RISK 4.4 - 7.1 AVERAGE RISK 7.1 - 11.0 MODERATE RISK >11.0 HIGH RISK Performed By: #### L IPID, CMP #### [facility] [address] [place] [address] Dr. Mel Barrientos Cholesterol [Mass/Vol] 63 mg/dL Normal <=200 [facility] Comment on above: Performed By: #### L IPID, CMP #### [facility] [address] [address] [address] Mel Barrientos Cholesterol in HDL [Mass/Vol] 12 mg/dL Critically low 40-60 [facility] Comment on above: Performed By: #### L IPID, CMP #### [facility] [address] [place] [address] Dr. Mel Barrientos Cholesterol in LDL [Mass/Vol] 32.2 mg/dL Normal [facility] Comment on above: Performed By: #### L IPID, CMP #### [facility] [address] [address] [address] Mel Barrientos Cholesterol.total/Cho lesterol in HDL [Mass ratio] 5.3 {ratio} Normal [facility] Comment on above: Performed By: #### L IPID, CMP #### [facility] [address] [place] [address] Dr. Mel Barrientos HDL NORMAL > or = 60 mg/dl - LO W CARDIOVASCULAR RISK <40 mg/dl - HIGH CARDIOVASCULAR RISK Normal [facility] Comment on above: Performed By: #### L IPID, CMP #### [facility] [address] [address] [address] Mel Barrientos LDL CALC NORMAL SEE BELOW Normal [facility] Comment on above: Result Comment: <100 mg/dl OPTIMAL 100 - 129 mg/dl NEAR OR ABOVE OPTIMAL 130 - 159 mg/dl BORDERLINE HIGH 160 - 189 mg/dl HIGH >190 mg/dl VERY HIGH Performed By: #### L IPID, CMP #### [facility] [address] [place] [address] Dr. Mel Barrientos Triglyceride [Mass/Vol] 94 mg/dL Normal <=150 [facility] Comment on above: Performed By: #### L IPID, CMP #### [facility] [address] [place] [address] Dr. Mel Barrientos VLDL CALC 18.8 mg/dL Normal [facility] Comment on above: Performed By: #### L IPID, CMP #### [facility] [address] [place] [address] Dr. Mel Barrientos PROF 14(COMP METB)on 022 Albumin [Mass/Vol] 2.4 g/dL Critically low 3.4-5.0 [facility] Comment on above: Performed By: #### L IPID, CMP #### [facility] [address] [place] [address] Dr. Mel Barrientos Albumin/Globulin [Mass ratio] 0.8 {ratio} Normal [facility] Comment on above: Performed By: #### L IPID, CMP #### [facility] [address] [place] [address] Dr. Mel Barrientos ALP [Catalytic activity/Vol] 153 U/L Critically high 46-116 [facility] Comment on above: Performed By: #### L IPID, CMP #### [facility] [address] [place] [address] Dr. Mel Barrientos ALT [Catalytic activity/Vol] 133 U/L Critically high 16-63 [facility] Comment on above: Performed By: #### L IPID, CMP #### [facility] [address] [place] [address] Dr. Mel Barrientos Anion gap [Moles/Vol] 12.1 mmol/L Normal [facility] Comment on above: Performed By: #### L IPID, CMP #### [facility] [address] [address] [address] Mel Barrientos AST [Catalytic activity/Vol] 215 U/L Critically high 15-37 [facility] Comment on above: Performed By: #### L IPID, CMP #### [facility] [address] [place] [address] Dr. Mel Barrientos Bilirubin [Mass/Vol] 0.4 mg/dL Normal 0.2-1.3 [facility] Comment on above: Performed By: #### L IPID, CMP #### [facility] [address] [place] [address] Dr. Mel Barrientos Calcium [Mass/Vol] 7.6 mg/dL Critically low 8.5-10.1 [facility] Comment on above: Performed By: #### L IPID, CMP #### [facility] [address] [place] [address] Dr. Mel Barrientos Chloride [Moles/Vol] 107 mmol/L Normal 98-107 [facility] Comment on above: Performed By: #### L IPID, CMP #### [facility] [address] [place] [address] Dr. Mel Barrientos CO2 [Moles/Vol] 22.8 mmol/L Normal 22.0-30.0 [facility] Comment on above: Performed By: #### L IPID, CMP #### [facility] [address] [place] [address] Dr. Mel Barrientos Creatinine [Mass/Vol] 0.99 mg/dL Normal 0.66-1.25 [facility] Comment on above: Performed By: #### L IPID, CMP #### [facility] [address] [place] [address] Dr. Mel Barrientos EGFR-AF TURKMEN >60 Normal >=60 [facility] Comment on above: Performed By: #### L IPID, CMP #### [facility] [address] [place] [address] Dr. Mel Barrientos EGFR-NON AF TURKMEN >60 Normal >=60 [facility] Comment on above: Performed By: #### L IPID, CMP #### [facility] [address] [place] [address] Dr. Mel Barrientos Globulin (S) [Mass/Vol] 3.2 g/dL Normal [facility] Comment on above: Performed By: #### L IPID, CMP #### [facility] [address] [place] [address] Dr. Mel Barrientos Glucose [Mass/Vol] 68 mg/dL Critically low 74-106 [facility] Comment on above: Performed By: #### L IPID, CMP #### [facility] [address] [place] [address] Dr. Mel Barrientos Potassium [Moles/Vol] 4.9 mmol/L Normal 3.4-5.0 [facility] Comment on above: Performed By: #### L IPID, CMP #### [facility] [address] [place] [address] Dr. Mel Barrientos Protein [Mass/Vol] 5.6 g/dL Critically low 6.1-8.2 [facility] Comment on above: Performed By: #### L IPID, CMP #### [facility] [address] [place] [address] Dr. Mel Barrientos Sodium [Moles/Vol] 137 mmol/L Normal 137-145 [facility] Comment on above: Performed By: #### L IPID, CMP #### [facility] [address] [place] [address] Dr. Mel Barrientos Urea nitrogen [Mass/Vol] 30.0 mg/dL Critically high 7.0-18.0 [facility] Comment on above: Performed By: #### L IPID, CMP #### [facility] [address] [place] [address] Dr. Mel Barrientos Urea nitrogen/Creatinine [Mass ratio] 30.3 mg/mg Normal [facility] Comment on above: Performed By: #### L IPID, CMP #### [facility] [address] [place] [address] Dr. Mel Barrientos CASE MANAGEMon 10-09-2017 CASE MANAGEM HNO ID: [id number] thor: Clementina Culver (Lsw)uloService: Care ManagementAuthor Type: Social WorkerType: Care Mgt Progress NoteFiled: 10/09/2017 3:12 PMNote Text:CARE MANAGEMENT DISCHARGE NOTESERVICE DATE: 10/09/2017SERVICE TIME: 3:02 PM LOS: 9 daysAdmission Date: 09/30/2017DISCHARGE ARRANGEMENT (list agency and phone number)snf facilityProvider: 'milly Long TSKNNJIXD ASSESSMENT:Caregiver is ready, willing and able to meet the patient's needs asrecommended by the inter-professional team? YesPatient's transition needs and plan for meeting these needs: SNFDoes the patient have an acute stroke diagnosis, or has the patient had astroke during this admission? NoHANDOFF COMMUNICATION:Primary Care Physician: Dr. Adriane Nichols SMKNERBTWMPSFF ARRANGEMENTS:Car FamilyADDITIONAL CONTACT RESOURCES: Pt sister Briana Muller [phone] Prior to Discharge: Ready for DischargePt medically cleared for d/c. Pt referral updated and Liaison met with Ptand nursing this afternoon. CM prepared d/c packet and 7000 and placed onPt chart w/number for nursing to call report. Per Pt and Pt sister familyto transport Pt around [phone] today. Text to Allegra GARCIA) to contactnursing on Pt d/c instructions.SIGNATURE: TRACI Hammer PATIENT NAME: Rociomarisa JacksonDATE: October 09, 2017 : 3:02 PM PAGER/CONTACT #: [phone] Normal [facility] CBC and Differentialon 10-09 Abs Baso <0.03 Normal <0.11 [facility] Comment on above: Performed By: #### P T, PTT, AMYL, CMP, LIPA, PHOS ####[facility] [place], [place] [phone]#### TRANSF ####[facility] [place], [place] [phone] Abs [place] 0.40 k/uL Normal <0.87 [facility] Comment on above: Performed By: #### P T, PTT, AMYL, CMP, LIPA, PHOS ####[place] [address]#### TRANSF ####[place] [phone] Abs Neut 3.59 k/uL Normal 1.45-7.50 [facility] Comment on above: Performed By: #### P T, PTT, AMYL, CMP, LIPA, PHOS ####[place] [address]#### TRANSF ####[address] [place] [phone] Basophils/100 WBC Auto (Bld) 0.3 % Normal [facility] Comment on above: Performed By: #### P T, PTT, AMYL, CMP, LIPA, PHOS ####[place] [address]#### TRANSF ####[place] [phone] DTYPE Auto Diff Normal [facility] Comment on above: Performed By: #### P T, PTT, AMYL, CMP, LIPA, PHOS ####[place] [address]#### TRANSF ####[address] [address] [address] [phone] Eosinophils 0.10 10*3/uL Normal <0.46 [facility] Comment on above: Performed By: #### P T, PTT, AMYL, CMP, LIPA, PHOS ####[place] [address]#### TRANSF ####[place] [phone] Eosinophils/100 leukocytes 1.7 % Normal [facility] Comment on above: Performed By: #### P T, PTT, AMYL, CMP, LIPA, PHOS ####[place] [address]#### TRANSF ####[place] [phone] Erythrocyte distribution width Auto Ratio (RBC) 16.8 % High 11.5-15.0 [facility] Comment on above: Performed By: #### P T, PTT, AMYL, CMP, LIPA, PHOS ####[place] [address]#### TRANSF ####[place] [phone] Erythrocytes (RBC) 3.79 10*6/uL Low 4.20-6.00 [facility] Comment on above: Performed By: #### P T, PTT, AMYL, CMP, LIPA, PHOS ####[place] [address]#### TRANSF ####[place] [phone] Hematocrit (HCT) 29.8 % Low 39.0-51.0 [facility] Comment on above: Performed By: #### P T, PTT, AMYL, CMP, LIPA, PHOS ####[place] [address]#### TRANSF ####[place] [phone] Hemoglobin mass conc (Bld) 9.5 g/dL Low 13.0-17.0 [facility] Comment on above: Performed By: #### P T, PTT, AMYL, CMP, LIPA, PHOS ####[place] [address]#### TRANSF ####[place] [phone] Lymphocytes 1.69 10*3/uL Normal 1.00-4.00 [facility] Comment on above: Performed By: #### P T, PTT, AMYL, CMP, LIPA, PHOS ####[address]#### TRANSF ####[place] [phone] Lymphocytes/100 leukocytes 29.1 % Normal [facility] Comment on above: Performed By: #### P T, PTT, AMYL, CMP, LIPA, PHOS ####[place] [address]#### TRANSF ####[place] [phone] MCH 25.1 pG Low 26.0-34.0 [facility] Comment on above: Performed By: #### P T, PTT, AMYL, CMP, LIPA, PHOS ####[place] [address]#### TRANSF ####[place] [phone] MCHC mass conc (RBC) 31.9 g/dL Normal 30.5-36.0 [facility] Comment on above: Performed By: #### P T, PTT, AMYL, CMP, LIPA, PHOS ####[place] [address]#### TRANSF ####[place] [phone] MCV 78.6 fL Low 80.0-100.0 [facility] Comment on above: Performed By: #### P T, PTT, AMYL, CMP, LIPA, PHOS ####[address]#### TRANSF ####[place] [address] [address] [phone] Monocytes/100 leukocytes 6.9 % Normal [facility] Comment on above: Performed By: #### P T, PTT, AMYL, CMP, LIPA, PHOS ####[place] [phone]#### TRANSF ####[address] [phone] Neutrophils/100 WBC Auto (Bld) 62.0 % Normal [facility] Comment on above: Performed By: #### P T, PTT, AMYL, CMP, LIPA, PHOS ####[address]#### TRANSF ####[place] [phone] Platelet mean volume (PMV) 9.3 fL Normal 9.0-12.7 [facility] Comment on above: Performed By: #### P T, PTT, AMYL, CMP, LIPA, PHOS ####[address]#### TRANSF ####[place] [phone] Platelets 421 10*3/uL High 150-400 [facility] Comment on above: Performed By: #### P T, PTT, AMYL, CMP, LIPA, PHOS ####[place] [phone]#### TRANSF ####[address] [phone] WBC (Leukocytes) 5.80 10*3/uL Normal 3.70-11.00 [facility] Comment on above: Performed By: #### P T, PTT, AMYL, CMP, LIPA, PHOS ####[place] [phone]#### TRANSF ####[facility] [address] [place], [place] [phone] CNDSon 10-09-2017 CNDS HNO ID: [id number] thor: Harmony Bonde: General SurgeryAuthor Type: ResidentType: Discharge SummariesFiled: 10/27/2017 12:15 PMNote Text:DISCHARGE SUMMARYPATIENT NAME: Rocio Jackson ADMISSION DATE: 09/30/2017MRN: [id number] DISCHARGE DATE: ATTENDING PHYSICIAN: Michael Jolley)REASON FOR HOSPITALIZATION: Duodenal cancerDIAGNOSIS: Active Problems: Severe protein-calorie malnutrition (HCC) Cancer of ampulla of Vater (HCC)Resolved Problems: * No resolved hospital problems. *OPERATIONS DURING HOSPITALIZATION: 1. Diagnostic laparoscopy.2. Pancreatic duodenectomyPROCEDURES DURING HOSPITALIZATION: No procedures performedHOSPITAL COURSE:You were admitted to the hospital for treatment of you duodenal cancer.You were brought to the operating room and underwent the above procedure.You tolerated the procedure well and were brought to the regular nursingfloor for recovery. When your pain was controlled on an oral regimen, youwere able to tolerate oral intake and were able to ambulate, you weredischarged from the hospital.LABS AND PROCEDURES PENDING AT DISCHARGE: Pathology Results (Surgery)CONSULTING TEAMS DURING HOSPITALIZATION: Endocrinology: Glucose controlPain management - perioperative pain controlPATIENT CONDITION AT DISCHARGE: StableDISCHARGE DISPOSITION: Home/Self CareINFORMATION PROVIDED TO PATIENT: (To pull info documented from the [place] [employer] Orderset Complete O/S First): No orders of the defined types wereplaced in this encounter.DISCHARGE MEDICATION:Discharge Medication List as of 10/09/2017 3:14 PMSTART taking these medicationsacetaminophen (TYLENOL) 650 mg/20.3 mL solnTake 20.3 mL by mouth every 6 hours as needed.Med UpdateoxyCODONE (ROXICODONE) 5 mg/5 mL oral solutionTake 5 mL by mouth every 6 hours as needed for Pain for up to 5 days.Med UpdateDx: 1. Duodenal cancer (HCC) 2. Acute painscopolamine (TRANSDERM-SCOP) 1 mg over 3 daysApply 1 Patch as directed every 72 hours as needed.Med Updateinsulin glargine (LANTUS) 100 unit/mL injectionInject 12 Units subcutaneously daily at bedtime. HOLD LANTUS IF TUBE FEEDSARE STOPPED.DO NOT MIX with other insulins. If patient is nothing by mouth, or ifenteral or parenteral nutrition is stopped, call provider to obtainupdated basal insulin ord ers. If blood glucose is less than 70 mg/dLimplement hypoglycemia treatment orders and notify provider.Med Update, Long-terminsulin lispro (HUMALOG) 100 unit/mL injectionIf Blood Glucose (mg/dL) is:Less than 110 Give 0 -444 Give 0 [id number] Give 2 [id number] Give 4 [id number] Give 6 [id number] Give 8 [id number] Give 10 unitsGreater than 400 Give 10 units and Notify ProviderNotify provider if 2 consecutive blood glucose values in the previous 24hours are greater than 250 mg/mLMed Update, Long-termmetoclopramide HCl (REGLAN) 5 mg/5 mL solutionTake 5 mL by mouth every 6 hours.Med Updateerythromycin ethyl succinate (E.E.S.) 200 mg/5 mL suspensionTake 5 mL by mouth with meals and at bedtime.Med Updatedextrose 40 % gelTake 15 g by mouth as needed. USE WHEN BLOOD GLUCOSE IS < 70 MG/DL ANDPATIENT HAS IV ACCESSMed Updatepantoprazole (PROTONIX) 40 mg/20 mLTake 20 mL by mouth once daily.Med Update, Qnqk-xwhzcsbros-wclzqsjh-arnulfo lase (CREON 24) 24,000-76,000 -120,000 unit cpDRTake 2 capsules by mouth three times daily with meals.Med Update, Long-termCONTINUE these medications which have NOT CHANGEDapixaban (ELIQUIS) 5 mg tab(s)Take 1 tablet by mouth twice daily.Med Updatemetoprolol tartrate, short acting, (LOPRESSOR) 50 mg tabletTake 1 tablet by mouth every 12 hours.Print RX, Disp-60 tablet, R-0, Long-termaspirin, enteric coated (ECOTRIN LOW STRENGTH) 81 mg EC tabletTake 162 mg by mouth once daily.Historical Med, Long-termatorvastatin (LIPITOR) 40 mg tabletTake 40 mg by mouth daily at bedtime.Historical Med, Long-termnitroglycerin sublingual (NITROSTAT) 0.4 mg SL tabletDissolve 0.4 mg under the tongue every 5 minutes as needed.Historical Med, Long-termSTOP taking these medicationsdextrose 50% in water solutionComments:Reason for Stopping:acetaminophen (TYLENOL) 325 mg tabletComments:Reason for Stopping:metFORMIN (GLUCOPHAGE) 1,000 mg tabletComments:Reason for Stopping:Omeprazole Magnesium 20 mg cpDRComments:Reason for Stopping:sAXagliptin (ONGLYZA) 5 mg tabComments:Reason for Stopping:FUTURE APPOINTMENTS:Follow Up with PCP: Adriane Nichols AppointmentsDate Time Provider Department [place]10/29/2017 1:30 PM Michael Jolley) [id number] [facility] (Use first blank if not applicable): TIME OF CARE: DischargeManagement: I personally spent less than 30 minutes involved in thedischarge management of this patient.SIGNATURE: Harmony Rodriguez MD PATIENT NAME: Rocio TorresdonnyDATE: October 27, 2017 : 12:12 PM PAGER/CONTACT #: [phone] Normal [facility] Comp Metabolic Panelon 10-09 Alanine aminotransferase (ALT) 26 U/L Normal 5-50 [facility] Comment on above: Performed By: #### P T, PTT, AMYL, CMP, LIPA, PHOS ####[place] [phone]#### TRANSF ####[place] [phone] Albumin 3.1 g/dL Low 3.5-5.0 [facility] Comment on above: Performed By: #### P T, PTT, AMYL, CMP, LIPA, PHOS ####[place] [phone]#### TRANSF ####[place] [phone] Alkaline phosphatase (ALP) 101 U/L Normal 40-150 [facility] Comment on above: Performed By: #### P T, PTT, AMYL, CMP, LIPA, PHOS ####[place] [address]#### TRANSF ####[place] [phone] Anion gap 13 mmol/L Normal 9-18 [facility] Comment on above: Performed By: #### P T, PTT, AMYL, CMP, LIPA, PHOS ####[place] [address]#### TRANSF ####[place] [phone] Aspartate aminotransferase (AST) 20 U/L Normal 7-40 [facility] Comment on above: Performed By: #### P T, PTT, AMYL, CMP, LIPA, PHOS ####[place] [address]#### TRANSF ####[place] [phone] Bilirubin (total) 0.2 mg/dL Normal 0.0-1.5 [facility] Comment on above: Performed By: #### P T, PTT, AMYL, CMP, LIPA, PHOS ####[place] [address]#### TRANSF ####[place] [phone] Calcium 8.6 mg/dL Normal 8.5-10.5 [facility] Comment on above: Performed By: #### P T, PTT, AMYL, CMP, LIPA, PHOS ####[place] [address]#### TRANSF ####[place] [phone] Chloride 101 mmol/L Normal 98-110 [facility] Comment on above: Performed By: #### P T, PTT, AMYL, CMP, LIPA, PHOS ####[address]#### TRANSF ####[place] [phone] CO2 24 mmol/L Normal 23-32 [facility] Comment on above: Performed By: #### P T, PTT, AMYL, CMP, LIPA, PHOS ####[place] [address]#### TRANSF ####[place] [phone] Creatinine 0.51 mg/dL Low 0.70-1.40 [facility] Comment on above: Performed By: #### P T, PTT, AMYL, CMP, LIPA, PHOS ####[place] [address]#### TRANSF ####[place] [phone] eGFR (non-black) mL/min/{1.73_m2} Normal >60 [facility] Comment on above: Performed By: #### P T, PTT, AMYL, CMP, LIPA, PHOS ####[place] [address]#### TRANSF ####[place] [phone] Glucose mass conc 185 mg/dL High 65-100 [facility] Comment on above: Performed By: #### P T, PTT, AMYL, CMP, LIPA, PHOS ####[place] [address]#### TRANSF ####[place] [phone] Potassium molar conc 3.7 mmol/L Normal 3.5-5.0 [facility] Comment on above: Performed By: #### P T, PTT, AMYL, CMP, LIPA, PHOS ####[place] [address]#### TRANSF ####[place] [address] Protein 6.5 g/dL Normal 6.0-8.4 [facility] Comment on above: Performed By: #### P T, PTT, AMYL, CMP, LIPA, PHOS ####[place] [address]#### TRANSF ####[place] [address] Sodium 138 mmol/L Normal 135-146 [facility] Comment on above: Performed By: #### P T, PTT, AMYL, CMP, LIPA, PHOS ####[place] [address]#### TRANSF ####[place] [address] Urea nitrogen 20 mg/dL Normal 10-25 [facility] Comment on above: Performed By: #### P T, PTT, AMYL, CMP, LIPA, PHOS ####[place] [address]#### TRANSF ####[place] [address] NURSING PROGon 10-09-2017 NURSING PROG HNO ID: [id number] thor: Reggie (Rn) MOUSTAPHA Sawantervice: (none)Author Type: Registered NurseType: Nursing Progress NoteFiled: 10/09/2017 12:48 PMNote Text: Nursing Progress NotePatient Name: Rocio Boudreaux: [id number] Location: [place] [id number] ____Daily Note: Mr. Jackson up to chair most of shift thus far. Ambulated inhallway with use of walker and 1 staff. He is tolerating tube feed at40ml/hr with no nausea or vomiting. Patient also tolerating clear liquidswith increased intake today as compared to yesterday. Pain controlledwith scheduled Tylenol. Plan for discharge to [facility] today. Patient updated on plan to transfer to SNF and agreeable with plan. Calllight within reach. Will continue to monitor.This note was completed by: Reggie Sawant RN [facility] NURSING PROG HNO ID: [id number] thor: Renae Diaz (Rn) Siva, RNService: (none)Author Type: Registered NurseType: Nursing Progress NoteFiled: 10/09/2017 2:52 AMNote Text: Nursing Progress NotePatient Name: Rocio JacksonMRN: [id number] Location: [place] [id number] ____ 2130 (late entry) Patient heart rate 119, when listening to apicalnoticed irregular rhythm and rate of 96. Patient denied chest pain ordiscomfort or SOB. residential mental health worker notified and telemetry ordered andapplied.2300 Patient seen by surgical services manager and no new orders received at thistime. patient NSR on the monitor rate of the 70's to 80's. Patient up tothe bathroom with one assist and walker to void. Patient had a BM duringthe day. Tube Feeding maintained via corpak Impact peptide 1.5 at 40ml/hr. Patient denies nausea no vomiting. Patient oral intake is low onlyhaving sips of water. Biliary drain flushed as ordered with 5 cc ofsterile NS. patient tolerated well. Call light in reach and bed in lowlocked position. Patient's sister at bedside.This note was completed by: Renae Paniagua RN [facility] PLAN OF CAREon 10-09-2017 PLAN OF CARE HNO ID: [id number] thor: Miriam Britt (Retail Sales Associate Seasonal)Service: (none)Author Type: TechnicianType: Plan of CareFiled: 10/12/2017 9:54 AMNote Text:RECHECKER BEDSIDE DELIVERY SURVEY1. Patient to use [facility] Bedside Delivery - N/A2. If fax, patient would like us to fax prescriptions to [facility] a. Pharmacy: b. Location: c. Phone:3. Insurance card on file - N/A4. Credit card for payment - N/A [facility] PROGRESSon 10-09-2017 PROGRESS HNO ID: [id number] thor: Michael Cedillo) AugustinService: General SurgeryAuthor Type: PhysicianType: Progress NotesFiled: 10/09/2017 10:59 AMNote Text:SURGICAL SERVICES PROGRESS NOTENAME: Rocio JacksonMRN: [id number]: 10/09/2017Time: 8:16 JUDIE DATE: 09/30/20179 Days Post-OpProcedure(s) (LRB):WHIPPLE PROCEDURE, WITH PANCREATOJEJUNOST (N/A)Hospital Day: 10Active Problems: Severe protein-calorie malnutrition (HCC) Duodenal cancer (HCC)Resolved Problems: * No resolved hospital problems. *ASSESSMENT AND PLAN: Rocio Jackson is a 62 year old male with history ofHTN, DM, CAD s/p PCI, who underwent a classic whipple for an obstructingduodenal mass 09/30, who was admitted to the SICU for postoperative care. JPamylase on POD 3 nml, removed. Transferred to [facility]??Patient did well overnight with no acute issues and no complaints.Improving nausea and only small amount of emesis (75cc) yesterday whichwas nonbilious. Tolerating more PO and having bowel movements. Has beenambulating regularly.?- OOB as tolerated- BPH, IS, wean supplemental O2- Sips as tolerated- Continue tube feeds, severe protein-calorie malnutrition- Continue creon; IV reglan prn for nausea and erythromycin 200mg ac/hsfor DGE- Repeat KUB on 10/07 without evidence of obstruction or distendedstomach/SB.- IPCs, SQH- Continue care on RNF; Plan to discharge to SNF today pending CM/precertPHYSICAL EXAM:GENERAL: AOx3, NADLUNGS: Nonlabored breathingABDOMEN: Soft, non-distended, nontenderSKIN: Warm, well perfusedBP 151/83 Pulse 75 Temp 36.9 ?C (98.5 ?F) (Temporal Artery) Resp 18 Ht 172.7 cm (5' 7.99 ) Wt 88.8 kg (195 lb 12.3 oz) SpO2 96% BMI29.77 kg/k0Erswum/Output Summary (Last 24 hours) at 10/09/17 0952Last data filed at 10/09/17 0900 Gross per 24 hourIntake 2372 mlOutput 1600 mlNet 772 mlDIAGNOSTIC STUDIES:CBC, BMP, MG, PHOSRecent Labs 10/09/1803WBC 5.80 6.53 6.79 7.03 5.61 4.20HB 9.5* 9.4* 8.9* 10.0* 10.2* 8.7*HCT 29.8* 29.5* 28.9* 31.3* 32.0* 27.0*PLT 421* 370 329 358 314 246NA 138 141 142 143 142 139K 3.7 3.8 4.1 4.3 4.6 4.0CHLOR 101 102 104 103 103 103CO2 24 26 27 24 27 25BUN 20 18 20 16 14 16CREAT 0.51* 0.55* 0.60* 0.54* 0.56* 0.54*GLUC 185* 152* 175* 208* 172* 146*CA 8.6 8.8 8.8 9.2 8.9 8.1*MG -- -- 2.0 2.0 2.1 1.8P -- -- 3.0 3.2 3.6 3.5Liver Function, Amylase, AND LipaseRecent Labs 10/09/1803TPROT 6.5 6.7 6.6 7.3 < > 5.8*ALB 3.1* 3.3* 3.2* 3.4* < > 3.1*ALT 26 31 32 28 < > 46AST 20 25 30 23 < > 48*ALKPHOS 101 106 106 108 < > 91TBILI 0.2 0.2 0.2 0.2 < > 0.5LACT -- -- -- -- -- 2.3*< > = values in this interval not displayed.CoagsRecent Labs 09/24/18083 08/15/1820616607GVLC 25.9 24.9 -- -- 39.8* 31.6INR 1.2 1.1 1.0 2.0* 2.0* 1.5*Tasha Fishert, PGY-1 - General SurgeryPager [phone] [facility] THERAPY NTon 10-09-2017 THERAPY NT HNO ID: [id number] thor: Alicia Sinhaervice: Occupational TherapyAuthor Type: Occupational TherapistType: Therapy (PT/OT/Speech/Resp)Filed: 10/09/2017 3:06 PMNote Text:OCCUPATIONAL THERAPY MISSED VISITSERVICE DATE: 10/09/2017SERVICE TIME: 1400 to 1400ROOM: TT-AT1V-94Shaqzglnd Treatment. Patient not seen due to (being D/C this pm).SIGNATURE: WENDY Ramires/Timo PATIENT NAME: Rocio Sibley: October 09, 2017 : 3:06 PM PAGER/CONTACT #:[phone] [facility] THERAPY NT HNO ID: [id number] thor: Saima Feliciano (Cota)pasService: Occupational TherapyAuthor Type: Occupational Therapy AssistantType: Therapy (PT/OT/Speech/Resp)Filed: 10/09/2017 10:11 AMNote Text: -Attestation signed by Jacqueline Arshad at 10/09/2017 12:31 PMI reviewed and agree with the documentation corresponding to this therapyvisit.SIGNATURE: Jacqueline Arshad OTR/LDATE: October 09, 2017TIME: 12:31 PM OC CUPATIONAL THERAPY MISSED VISITSERVICE DATE: 10/09/2017SERVICE TIME: 1009 to 1009ROOM: [id number]-25Hwruqtdic Treatment. Patient not seen due to Sleeping. Nursing aware(Reggie)SIGNATURE: TRACY Dumont PATIENT NAME: Rocio VizcarraTE: October 09, 2017 : 10:10 AM PAGER/CONTACT #:[phone] [facility] CASE MANAGEMon 10-08-2017 CASE MANAGEM HNO ID: [id number] thor: Clementina [facility]) PezzuloService: Care ManagementAuthor Type: Social WorkerType: Care Mgt Progress NoteFiled: 10/08/2017 4:29 PMNote Text:MULTIDISCIPLINARY ROUNDSSERVICE DATE: 10/08/2017 ADMISSION DATE: 09/30/2017SERVICE TIME: 10:45 AM ANTICIPATED D/C DATE: 10/10/2017Problem List:ACTIVE PROBLEM LISTDuodenal ObstructionSevere Protein-Calorie Malnutrition (Hcc)Duodenal Cancer (Hcc)Attendees Present at Rounds:Cement Patcher: Jasbiramily: yPatient: Rocio Shaikh Nurse: Laura Discussed on Rounds:DietDischarge NeedsFamily ConcernsMobilityPlan of CareAnticipated Discharge Disposition:Fdc FacilityLast Vitals: BP 153/85 Pulse 90 Temp (Src) 97.9 (Oral) Resp 16 Ht5' 7.992 (1.73m) Wt 195 lb 12.3 oz (88.8kg) SpO2 97% BMI 29.77kg/(m2).Pt SNF vs [place]. Most likely SNFNursing:DOCUMENTED BY: Clementina TRACI Kunz PATIENT NAME: Rocio VizcarraTE: October 08, 2017 : 4:27 PM CSN: [id number] [facility] CASE MANAGEM HNO ID: [id number] thor: Clementina Florez) PalomouloService: Care ManagementAuthor Type: Social WorkerType: Care Mgt Progress NoteFiled: 10/08/2017 4:37 PMNote Text:CARE MANAGEMENT PROGRESS NOTESERVICE DATE: 10/08/2017SERVICE TIME: 1:16 PM LOS: 8 daysNeeds Prior to Discharge: Precertification;Accepting Facility;Other: SeeComment (Pt and Pt sister [facility]says they are not able to accept Pt AND feel Pt best suited for SNF. Familymet w Liaison from [facility] who is willing to accept although waitingon acceptance from 1st choice [place])CM phoned and left message inquiring on acceptance of Pt for intake -Denise Garcia.ADDENDUM: 1630: Per Paty at [facility] Pt Insurance is Out ofNetwork. CM met with Pt bedside. Pt sister present, CM discussedinsurance and Pt SNF choices. Per Pt he [facility] CM requested precert to begin.SIGNATURE: TRACI Hammer PATIENT NAME: Rocio VizcarraTE: October 08, 2017 : 1:16 PM PAGER/CONTACT #: [phone] [facility] CASE MANAGEM HNO ID: [id number] thor: Clementina Greenwood (Traci) Marirvice: Care ManagementAuthor Type: Social WorkerType: Care Mgt Progress NoteFiled: 10/08/2017 9:11 AMNote Text:CARE MANAGEMENT PROGRESS NOTESERVICE DATE: 10/08/2017SERVICE TIME: 9:08 AM LOS: 8 daysFREEDOM OF CHOICE GIVEN:Yes Pt. Rociomarisa Jackson and sister (Jess)Financial Disclosure ProvidedThe patient and/or family has been given the Provider List: YesPreference: [place] vs SNFNeeds Prior to Discharge: Accepting Facility;To BeDetermined;Precertificatio nCMSW met with Pt bedside, Pt AANDOx4. Pt sister, Jess is present. Per Ptand sister they [facility] [place] ([place]) CM spoke w/alina Sarabia [phone] in admission whowill review Pt to determine acceptance. [facility] CM sent referrals.SIGNATURE: TRACI Hammer PATIENT NAME: Rocio JacksonDATE: October 08, 2017 : 9:08 AM PAGER/CONTACT #: [phone] Normal [facility] CBC and Differentialon 10-08 Abs Baso <0.03 Normal <0.11 [facility] Comment on above: Performed By: #### P T, PTT, AMYL, CMP, LIPA, PHOS ####[place] [address]#### TRANSF ####[place] [address] [place] [phone] Abs [place] 0.38 k/uL Normal <0.87 [facility] Comment on above: Performed By: #### P T, PTT, AMYL, CMP, LIPA, PHOS ####[place] [address]#### TRANSF ####[facility] [address] [place], [place] [address] Abs Neut 4.15 k/uL Normal 1.45-7.50 [facility] Comment on above: Performed By: #### P T, PTT, AMYL, CMP, LIPA, PHOS ####[place] [address]#### TRANSF ####[place] [address] Basophils/100 WBC Auto (Bld) 0.3 % Normal [facility] Comment on above: Performed By: #### P T, PTT, AMYL, CMP, LIPA, PHOS ####[place] [address]#### TRANSF ####[place] [address] DTYPE Auto Diff Normal [facility] Comment on above: Performed By: #### P T, PTT, AMYL, CMP, LIPA, PHOS ####[place] [address]#### TRANSF ####[place] [address] Eosinophils 0.07 10*3/uL Normal <0.46 [facility] Comment on above: Performed By: #### P T, PTT, AMYL, CMP, LIPA, PHOS ####[place] [address]#### TRANSF ####[place] [address] Eosinophils/100 leukocytes 1.1 % Normal [facility] Comment on above: Performed By: #### P T, PTT, AMYL, CMP, LIPA, PHOS ####[place] [address]#### TRANSF ####[place] [address] Erythrocyte distribution width Auto Ratio (RBC) 16.8 % High 11.5-15.0 [facility] Comment on above: Performed By: #### P T, PTT, AMYL, CMP, LIPA, PHOS ####[place] [address]#### TRANSF ####[place] [address] Erythrocytes (RBC) 3.72 10*6/uL Low 4.20-6.00 [facility] Comment on above: Performed By: #### P T, PTT, AMYL, CMP, LIPA, PHOS ####[place] [address]#### TRANSF ####[place] [phone] Hematocrit (HCT) 29.5 % Low 39.0-51.0 [facility] Comment on above: Performed By: #### P T, PTT, AMYL, CMP, LIPA, PHOS ####[place] [address]#### TRANSF ####[place] [address] Hemoglobin mass conc (Bld) 9.4 g/dL Low 13.0-17.0 [facility] Comment on above: Performed By: #### P T, PTT, AMYL, CMP, LIPA, PHOS ####[place] [address]#### TRANSF ####[place] [phone] Lymphocytes 1.91 10*3/uL Normal 1.00-4.00 [facility] Comment on above: Performed By: #### P T, PTT, AMYL, CMP, LIPA, PHOS ####[place] [address]#### TRANSF ####[place] [address] Lymphocytes/100 leukocytes 29.2 % Normal [facility] Comment on above: Performed By: #### P T, PTT, AMYL, CMP, LIPA, PHOS ####[place] [address]#### TRANSF ####[address] [place] [phone] MCH 25.3 pG Low 26.0-34.0 [facility] Comment on above: Performed By: #### P T, PTT, AMYL, CMP, LIPA, PHOS ####[place] [address]#### TRANSF ####[place] [phone] MCHC mass conc (RBC) 31.9 g/dL Normal 30.5-36.0 [facility] Comment on above: Performed By: #### P T, PTT, AMYL, CMP, LIPA, PHOS ####[place] [address]#### TRANSF ####[place] [address] MCV 79.3 fL Low 80.0-100.0 [facility] Comment on above: Performed By: #### P T, PTT, AMYL, CMP, LIPA, PHOS ####[place] [address]#### TRANSF ####[place] [address] Monocytes/100 leukocytes 5.8 % Normal [facility] Comment on above: Performed By: #### P T, PTT, AMYL, CMP, LIPA, PHOS ####[place] [address]#### TRANSF ####[place] [address] Neutrophils/100 WBC Auto (Bld) 63.6 % Normal [facility] Comment on above: Performed By: #### P T, PTT, AMYL, CMP, LIPA, PHOS ####[place] [address]#### TRANSF ####[place] [address] Platelet mean volume (PMV) 9.3 fL Normal 9.0-12.7 [facility] Comment on above: Performed By: #### P T, PTT, AMYL, CMP, LIPA, PHOS ####[place] [address]#### TRANSF ####[place] [phone] Platelets 370 10*3/uL Normal 150-400 [facility] Comment on above: Performed By: #### P T, PTT, AMYL, CMP, LIPA, PHOS ####[place] [address]#### TRANSF ####[place] [phone] WBC (Leukocytes) 6.53 10*3/uL Normal 3.70-11.00 [facility] Comment on above: Performed By: #### P T, PTT, AMYL, CMP, LIPA, PHOS ####[place] [phone]#### TRANSF ####[place] [phone] CONSULT PROGon 10-08-2017 CONSULT PROG HNO ID: [id number] thor: Damaris Formanervice: EndocrinologyAuthor Type: PhysicianType: Consult Progress NoteFiled: 10/09/2017 9:48 AMNote Text:ENDOCRINOLOGY PROGRESS NOTEPATIENT NAME: Rocio JacksonMRN: [id number] DATE: 10/08/2017SERVICE TIME: 5:27 PMREASON FOR CONSULT: DM Type 2REQUESTING PHYSICIAN: Michael Jolley MDSubjectiveHISTORY OF PRESENT ILLNESS: Mr. Jackson is a 62 year old male whopresented with nausea, emesis, and an unintentional weight loss of over 20lbs. ?He?underwent classic Whipple surgery 09/30/[address] Dr. Jolley. ?He is receiving enteral nutrition since10/01/2017. ?History of well controlled Type 2 DM dx 1-2 years ago treatedwith oral agents saxagliptin 5 mg daily and metformin 1000 mg twice dailywith meals. He was transfused with pRBC on 10/02/2017 so obtaining a WbK0xozx will not be helpful. He is receiving Lantus at bedtime and SSI#2every 6 hours. Blood glucose in the 172-199 mg/dL range today. Patientis sleeping when I visit him today with family by bedside. Plan fordischarge to SNF.PAST MEDICAL HISTORYDiagnosis Date- Bleeding ulcer 11/15/2016 required 5 blood transfusions- Diabetes mellitus (HCC) 2016- Glaucoma- Hypertension- Myocardial infarction (HCC) 05/15/2011PAST SURGICAL HISTORYProcedure Laterality Date- ANGIOPLASTY HX 05/15/2011 2 stents s/p MD;[facility]- CHOLECYSTECTOMY 08/11/2017 [facility]- PICC LINE INSERT/CONSULT 08/16/2017No family history on file.Social HistorySubstance Use Topics- Smoking status: Former Smoker Types: Cigarettes Quit date: 2010- Smokeless tobacco: Never Used- Alcohol use 1.5 oz/week 1 Cans of Beer (12oz) per week Comment: occasional beerCURRENT MEDICATION:Current Facility-Administered Medications:insulin glargine 10 Units injection (long acting) (LANTUS) 10 UnitsSUBCUTANEOUS AT BEDTIME Damaris [place] 10 Units at 10/07/17 2100erythromycin ethyl succinate 200 mg oral liquid (E.E.S.) 200 mg ORAL wMEALS AND HS Allegra Atkins (Saima) Miglionico 200 mg at 10/08/17 1625scopolamine 1 mg over 3 days 1 Patch (TRANSDERM-SCOP) 1 Patch TRANSDERMALq 72 HR Allegra S (Saima) Miglionico 1 Patch at 10/06/17 1100And[START ON 10/09/2017] scopolamine - REMOVE PATCH OTHER q 72 HR Allegra S(Saima) MiglionicoAndscopolamine - VERIFY patch OTHER q 8 H Allegra S (Saima) Miglionicoinsulin lispro injection (rapid acting) (HumaLOG) SUBCUTANEOUS q 6 HDorota [place] 1 Units at 10/08/17 1351fentaNYL 50 mcg/mL 25 mcg injection (SUBLIMAZE) 25 mcg INTRAVENOUS q 4 HPRN Allegra Atkins (Saima) Miglionicoacetaminophen 650 mg CUP (TYLENOL) 650 mg ORAL q 6 H Allegra Atkins (Pa)Miglionico 650 mg at 10/08/17 1329oxyCODONE 5 mg oral liquid (ROXICODONE) 5 mg ORAL q 4 H PRN Yrn Cedillo)Gonzalo 5 mg at 10/07/17 5225eyanar-jhrxpnmv-hhlkrdo 2 capsule cap(s) (CREON 24) 2 capsule ORAL TID wMEALS Flynn (Res) MD Jane 2 capsule at 10/08/17 0830phenol 1 [place] (CHLORASEPTIC) 1 [place] MUCOUS MEMBRANE (TOPICAL MOUTH ANDTHROAT) q 2 H PRN Kolby (Res) Kevin 1 [place] at 10/02/17 91161.9% NaCl 2-10 mL 2-10 mL INTRAVENOUS q 12 H Mundo (Res)(Hist) Sideris5 mL at 10/08/17 1010naloxone 0.2 mg injection (NARCAN) 0.2 mg INTRAVENOUS PRN Yrn Cedillo)Bhatnagaraspirin, enteric coated 162 mg tab(s) (ASPIRIN, ENTERIC COATED) 162 mgORAL DAILY Mundo (Res)(Hist) Sideris 162 mg at 10/08/17 0954nitroglycerin sublingual 0.4 mg tab(s) (NITROQUICK) 0.4 mg SUBLINGUAL q 5MIN PRN Mundo (Res)(Hist) Siderisdextrose 40 % 15 g 15 g ORAL PRN Mundo (Res)(Hist) SiderisOrglucagon 1 mg injection (GLUCAGEN) 1 mg INTRAMUSCULAR PRN Mundo(Res)(Hist) SiderisOrdextrose 50% in water 25 mL syringe 12.5 g INTRAVENOUS PRN Mundo(Res)(Hist) Siderismagnesium sulfate in water 2 g in sterile water 50 ml 2 g INTRAVENOUSPRN(NO DISPENSE) Mundo (Res)(Hist) Siderisheparin 5,000 Units injection 5,000 Units SUBCUTANEOUS q 12 H Mundo(Res)(Hist) Sideris 5,000 Units at 10/08/17 0954metoclopramide HCl 10 mg injection (REGLAN) 10 mg INTRAVENOUS q 6 H PRNAntonaaron (Res)(Hist) Sideris 10 mg at 10/07/17 1610Allergies As of Date: 09/16/2017(No Known Allergies)Fully Assessed 09/15/2017COMPLETE REVIEW OF SYSTEMS:General: no fever, chillsSkin: no rashes, but has dry skinPulmonary: does not appear dyspneicObjectivePHYSICAL EXAM:BP 153/85 Pulse 90 Temp 36.6 ?C (97.9 ?F) (Oral) Resp 16 Ht 172.7 cm(5' 7.99 ) Wt 88.8 kg (195 lb 12.3 oz) SpO2 97% BMI 29.77 kg/k4Iwzdxxf: Well appearing, sleeping, in no acute distress.Skin: skin color is pale.Heart: RRRExtremities: Trace edema present in the lower extremities.DATA:Diagnostic tests reviewed for today's visit:Most recent labsComponent Glucose, Point of Care InsulinLatest Ref Rng AND Units 74 - 99 mg/dL10/07/2017 5:41 AM 183 (A) H210/07/2017 11:33 AM 195 (A) H210/07/2017 5:28 PM 193 (A) 22/05/2018 8:34 PM 202 (A) Lantus 11:46 PM 178 (A) H210/08/2017 5:44 AM 172 (A) H210/08/2017 1:17 PM 199 (A) G2Weregjers Latest Ref Rng AND Units 10/07/2017 10/08/2017 4:27 AM 4:52 AMProtein, Total 6.0 - 8.4 g/dL 6.6 6.7Albumin 3.5 - 5.0 g/dL 3.2 (L) 3.3 (L)Calcium 8.5 - 10.5 mg/dL 8.8 8.8Bilirubin, Total 0.0 - 1.5 mg/dL 0.2 0.2Alkaline Phosphatase 40 - 150 U/L 106 106AST 7 - 40 U/L 30 25Glucose 65 - 100 mg/dL 175 (H) 152 (H)BUN 10 - 25 mg/dL 20 18Creatinine 0.70 - 1.40 mg/dL 0.60 (L) 0.55 (L)Sodium 135 - 146 mmol/L 142 141Potassium 3.5 - 5.0 mmol/L 4.1 3.8Chloride 98 - 110 mmol/L 104 102CO2 23 - 32 mmol/L 27 26Anion Gap 9 - 18 mmol/L 11 13ALT 5 - 50 U/L 32 31eGFR- >60 >60 >60eGFR-All Other Races >60 . >60 >60Assessment/Plan62 year old male presenting with weight loss and emesis who underwentclassic Whipple surgery 09/30/2017 for obstructing duodenal mass by . ?Hx of well controlled DM Type 2 dx 1-2 years ago on oralhypoglycemics saxagliptin and metformin and CAD s/p PCI in 2010. Glycemiccontrol was exacerbated by?enteral nutrition since 10/01/2017. ?He hasdifficulty swallowing pills. ?He was transfused with pRBC on 10/02/2017 soobtaining a HbA1c now will not be helpful. ???-increased Lantus from 8 to 10 units at bedtime yesterday. Insulin shouldbe held if tube feeds are held or discontinued-continue SSI#2 given every 6 hours-clear liquid diet-glucose monitoring every 6 hours-hopefully we can resume oral hypoglycemics once patient has lessdysphagia-anticipate discharge to SNF soon10/09 Addendum: Increase Lantus from 10 to 12 units at bedtimeASHLEY SyedIGNATURE: Damaris Aguilar MDDATE: October 08, 2017TIME: 5:27 PM Normal [facility] Comp Metabolic Panelon 10-08 Alanine aminotransferase (ALT) 31 U/L Normal 5-50 [facility] Comment on above: Performed By: #### P T, PTT, AMYL, CMP, LIPA, PHOS ####[address] [phone]#### TRANSF ####[facility] [place], [place] [phone] Albumin 3.3 g/dL Low 3.5-5.0 [facility] Comment on above: Performed By: #### P T, PTT, AMYL, CMP, LIPA, PHOS ####[address] [phone]#### TRANSF ####[place] [address] Alkaline phosphatase (ALP) 106 U/L Normal 40-150 [facility] Comment on above: Performed By: #### P T, PTT, AMYL, CMP, LIPA, PHOS ####[place] [address]#### TRANSF ####[place] [address] Anion gap 13 mmol/L Normal 9-18 [facility] Comment on above: Performed By: #### P T, PTT, AMYL, CMP, LIPA, PHOS ####[place] [address]#### TRANSF ####[place] [address] Aspartate aminotransferase (AST) 25 U/L Normal 7-40 [facility] Comment on above: Performed By: #### P T, PTT, AMYL, CMP, LIPA, PHOS ####[place] [address]#### TRANSF ####[place] [address] Bilirubin (total) 0.2 mg/dL Normal 0.0-1.5 [facility] Comment on above: Performed By: #### P T, PTT, AMYL, CMP, LIPA, PHOS ####[place] [address]#### TRANSF ####[place] [address] Calcium 8.8 mg/dL Normal 8.5-10.5 [facility] Comment on above: Performed By: #### P T, PTT, AMYL, CMP, LIPA, PHOS ####[place] [address]#### TRANSF ####[place] [address] [place] [phone] Chloride 102 mmol/L Normal 98-110 [facility] Comment on above: Performed By: #### P T, PTT, AMYL, CMP, LIPA, PHOS ####[place] [address]#### TRANSF ####[place] [address] CO2 26 mmol/L Normal 23-32 [facility] Comment on above: Performed By: #### P T, PTT, AMYL, CMP, LIPA, PHOS ####[place] [address]#### TRANSF ####[place] [address] Creatinine 0.55 mg/dL Low 0.70-1.40 [facility] Comment on above: Performed By: #### P T, PTT, AMYL, CMP, LIPA, PHOS ####[place] [address]#### TRANSF ####[place] [address] eGFR (non-black) mL/min/{1.73_m2} Normal >60 [facility] Comment on above: Performed By: #### P T, PTT, AMYL, CMP, LIPA, PHOS ####[address]#### TRANSF ####[place] [phone] Glucose mass conc 152 mg/dL High 65-100 [facility] Comment on above: Performed By: #### P T, PTT, AMYL, CMP, LIPA, PHOS ####[place] [phone]#### TRANSF ####[place] [address] Potassium molar conc 3.8 mmol/L Normal 3.5-5.0 [facility] Comment on above: Performed By: #### P T, PTT, AMYL, CMP, LIPA, PHOS ####[place] [address]#### TRANSF ####[place] [address] Protein 6.7 g/dL Normal 6.0-8.4 [facility] Comment on above: Performed By: #### P T, PTT, AMYL, CMP, LIPA, PHOS ####[place] [address]#### TRANSF ####[place] [address] Sodium 141 mmol/L Normal 135-146 [facility] Comment on above: Performed By: #### P T, PTT, AMYL, CMP, LIPA, PHOS ####[place] [address]#### TRANSF ####[place] [address] Urea nitrogen 18 mg/dL Normal 10-25 [facility] Comment on above: Performed By: #### P T, PTT, AMYL, CMP, LIPA, PHOS ####[place] [address]#### TRANSF ####[place] [phone] NURSING PROGon 10-08-2017 NURSING PROG HNO ID: [id number] thor: Reggie (Rn) MOUSTAPHA Sawantervice: (none)Author Type: Registered NurseType: Nursing Progress NoteFiled: 10/08/2017 8:55 AMNote Text: Nursing Progress NotePatient Name: Rocio HayesN: [id number] [id number] ____Daily Note: Mr. Jackson awake and alert resting in bed. Patient had a 75mlemesis; states nausea has subsided. He states he did have a small amountof apple juice yesterday with mild nausea, no vomiting. Impact/Peptide1.5 infusing via corpak at 40ml/hr (goal rate 50) without difficulty.Patient denies pain. Spouse at bedside. Call light within reach. Willcontinue to monitor.This note was completed by: Reggie Sawant RN [facility] PROGRESSon 10-08-2017 PROGRESS HNO ID: [id number] thor: Salvador (ASHLEY Dominguezervice: General SurgeryAuthor Type: ResidentType: Progress NotesFiled: 10/08/2017 9:38 AMNote Text:SURGICAL SERVICES PROGRESS NOTENAME: Rocio HayesN: [id number]: 10/08/2017Time: 8:16 JUDIE DATE: 09/30/20178 Days Post-OpProcedure(s) (LRB):WHIPPLE PROCEDURE, WITH PANCREATOJEJUNOST (N/A)Hospital Day: 9Active Problems: Severe protein-calorie malnutrition (HCC) Duodenal cancer (HCC)Resolved Problems: * No resolved hospital problems. *ASSESSMENT AND PLAN: Rocio Jackson is a 62 year old male with history ofHTN, DM, CAD s/p PCI, who underwent a classic whipple for an obstructingduodenal mass 09/30, who was admitted to the SICU for postoperative care. JPamylase on POD 3 nml, removed. Transferred to [facility]??Patient did well overnight with no acute issues and no complaints.Improving nausea and only small amount of spit up overnight. No biliousemesis. Repeat KUB on 10/07 without evidence of obstruction or distendedstomach/SB. Has been ambulating regularly.?- OOB as tolerated- BPH, IS, wean supplemental O2- Sips as tolerated- Continue tube feeds, severe protein-calorie malnutrition- Continue creon; IV reglan prn for nausea and erythromycin 200mg ac/hsfor DGE- IPCs, SQH- Continue care on RNF; will continue dispo planning for SNF todayPHYSICAL EXAM:GENERAL: AOx3, NADLUNGS: Nonlabored breathingABDOMEN: Soft, non-distended, nontenderSKIN: Warm, well perfusedBP 152/78 Pulse 73 Temp 37.3 ?C (99.1 ?F) (Oral) Resp 16 Ht 172.7cm (5' 7.99 ) Wt 88.8 kg (195 lb 12.3 oz) SpO2 97% BMI 29.77 kg/e7Bwrcqu/Output Summary (Last 24 hours) at 10/08/17 0936Last data filed at 10/08/17 0823 Gross per 24 hourIntake 1735 mlOutput 2300 mlNet -565 mlDIAGNOSTIC STUDIES:CBC, BMP, MG, PHOSRecent Labs 10/08/1803WBC 6.53 6.79 7.03 5.61 4.20HB 9.4* 8.9* 10.0* 10.2* 8.7*HCT 29.5* 28.9* 31.3* 32.0* 27.0*PLT 370 329 358 314 246NA 141 142 143 142 139K 3.8 4.1 4.3 4.6 4.0CHLOR 102 104 103 103 103CO2 26 27 24 27 25BUN 18 20 16 14 16CREAT 0.55* 0.60* 0.54* 0.56* 0.54*GLUC 152* 175* 208* 172* 146*CA 8.8 8.8 9.2 8.9 8.1*MG -- 2.0 2.0 2.1 1.8P -- 3.0 3.2 3.6 3.5Liver Function, Amylase, AND LipaseRecent Labs 10/08/1803TPROT 6.7 6.6 7.3 6.5 < > 5.8*ALB 3.3* 3.2* 3.4* 3.3* < > 3.1*ALT 31 32 28 27 < > 46AST 25 30 23 23 < > 48*ALKPHOS 106 106 108 107 < > 91TBILI 0.2 0.2 0.2 0.2 < > 0.5LACT -- -- -- -- -- 2.3*< > = values in this interval not displayed.CoagsRecent Labs 09/24/1808867587VKTK 25.9 24.9 -- -- 39.8* 31.6INR 1.2 1.1 1.0 2.0* 2.0* 1.5*Poonam Fisher, PGY-1 - General SurgeryPager [phone] [facility] ALLIED HEALTHon 10-07-2017 ALLIED HEALTH HNO ID: [id number] thor: Allegra (Rt) Sally Espitiae: RadiologyAuthor Type: TechnicianType: Allied HealthFiled: 10/07/2017 12:43 PMNote Text: Radiology Service Progress NotePATIENT NAME: Rocio HayesN: [id number] OF SERVICE: October 07, 2017TIME: 12:42 PMPATIENT IDENTITY VERIFICATION COMPLETED USING TWO (2) METHODS: Patientconfirmed name verbally and ID band matches..PATIENT GENDER DATA: MalePATIENT RELEVANT IMPLANT DATA REVIEWED: Not ApplicableRADIOLOGY DEPARTMENT: General X-ray: Exam(s) Completed: Chest X-RayAbdomen X-Ray Abdomen Supine / AP ErectPERIPHERAL IV DATA: Not applicableSIGNED BY: Omkar Dinh RTApril 2017 12:42 PM [facility] CASE MANAGEMon 10-07-2017 CASE MANAGEM HNO ID: [id number] thor: Clementina Culver (Lsw)uloService: Care ManagementAuthor Type: Social WorkerType: Care Mgt Progress NoteFiled: 10/07/2017 3:54 PMNote Text:CARE MANAGEMENT PROGRESS NOTESERVICE DATE: 10/07/2017SERVICE TIME: 12:32 PM LOS: 7 daysNeeds Prior to Discharge: To Be Determined;Accepting Facility;Facility orAgency Choices;Other: See Comment;Precertification (PA discussed this Pttransitional plan w this worker. Pt anticipated SNF. Pt will need drainflushed, New DM, Corepak, meds crushed AND administered via corepak. Pernursing Pt Ab/CXR today)CM attempted to meet with Pt to review SNF list. Pt not available in hisroom at this time. CM will continue to follow.ADDENDUM: 1553: CMSW met with Pt, Pt sister's present (Jess/Oanh) CMreviewed connected care agencies and Star ratings. Pt and sisters [facility]eto [facility]. Per Pt and sisters they would like toreview list and facilities and provided choices in the morning. CMdiscussed w/nursing.SIGNATURE: TRACI Hammer PATIENT NAME: Rocio JacksonDATE: October 07, 2017 : 12:32 PM PAGER/CONTACT #: [phone] Normal [facility] CBC and Differentialon 10-07 Abs Baso <0.03 Normal <0.11 [facility] Comment on above: Performed By: #### P T, PTT, AMYL, CMP, LIPA, PHOS ####[place] [phone]#### TRANSF ####[place] [phone] Abs [place] 0.49 k/uL Normal <0.87 [facility] Comment on above: Performed By: #### P T, PTT, AMYL, CMP, LIPA, PHOS ####[phone]#### TRANSF ####[place] [phone] Abs Neut 4.36 k/uL Normal 1.45-7.50 [facility] Comment on above: Performed By: #### P T, PTT, AMYL, CMP, LIPA, PHOS ####[place] [address]#### TRANSF ####[place] [address] Basophils/100 WBC Auto (Bld) 0.1 % Normal [facility] Comment on above: Performed By: #### P T, PTT, AMYL, CMP, LIPA, PHOS ####[place] [address]#### TRANSF ####[place] [phone] DTYPE Auto Diff [facility] Comment on above: Performed By: #### P T, PTT, AMYL, CMP, LIPA, PHOS ####[place] [address]#### TRANSF ####[place] [phone] Eosinophils 0.04 10*3/uL Normal <0.46 [facility] Comment on above: Performed By: #### P T, PTT, AMYL, CMP, LIPA, PHOS ####[place] [address]#### TRANSF ####[place] [address] Eosinophils/100 leukocytes 0.6 % Normal [facility] Comment on above: Performed By: #### P T, PTT, AMYL, CMP, LIPA, PHOS ####[place] [address]#### TRANSF ####[address] Av[address] [place] [phone] Erythrocyte distribution width Auto Ratio (RBC) 16.8 % High 11.5-15.0 [facility] Comment on above: Performed By: #### P T, PTT, AMYL, CMP, LIPA, PHOS ####[place] [address]#### TRANSF ####[place] [phone] Erythrocytes (RBC) 3.55 10*6/uL Low 4.20-6.00 [facility] Comment on above: Performed By: #### P T, PTT, AMYL, CMP, LIPA, PHOS ####[place] [address]#### TRANSF ####[place] [phone] Hematocrit (HCT) 28.9 % Low 39.0-51.0 [facility] Comment on above: Performed By: #### P T, PTT, AMYL, CMP, LIPA, PHOS ####[place] [address]#### TRANSF ####[place] [phone] Hemoglobin mass conc (Bld) 8.9 g/dL Low 13.0-17.0 [facility] Comment on above: Performed By: #### P T, PTT, AMYL, CMP, LIPA, PHOS ####[place] [address]#### TRANSF ####[place] [phone] Lymphocytes 1.89 10*3/uL Normal 1.00-4.00 [facility] Comment on above: Performed By: #### P T, PTT, AMYL, CMP, LIPA, PHOS ####[place] [address]#### TRANSF ####[place] [phone] Lymphocytes/100 leukocytes 27.8 % Normal [facility] Comment on above: Performed By: #### P T, PTT, AMYL, CMP, LIPA, PHOS ####[place] [address]#### TRANSF ####[place] [phone] MCH 25.1 pG Low 26.0-34.0 [facility] Comment on above: Performed By: #### P T, PTT, AMYL, CMP, LIPA, PHOS ####[place] [address]#### TRANSF ####[place] [phone] MCHC mass conc (RBC) 30.8 g/dL Normal 30.5-36.0 [facility] Comment on above: Performed By: #### P T, PTT, AMYL, CMP, LIPA, PHOS ####[place] [address]#### TRANSF ####[place] [phone] MCV 81.4 fL Normal 80.0-100.0 [facility] Comment on above: Performed By: #### P T, PTT, AMYL, CMP, LIPA, PHOS ####[place] [address]#### TRANSF ####[place] [phone] Monocytes/100 leukocytes 7.2 % Normal [facility] Comment on above: Performed By: #### P T, PTT, AMYL, CMP, LIPA, PHOS ####[place] [address]#### TRANSF ####[place] [phone] Neutrophils/100 WBC Auto (Bld) 64.3 % Normal [facility] Comment on above: Performed By: #### P T, PTT, AMYL, CMP, LIPA, PHOS ####[place] [address]#### TRANSF ####[place] [phone] Platelet mean volume (PMV) 9.2 fL Normal 9.0-12.7 [facility] Comment on above: Performed By: #### P T, PTT, AMYL, CMP, LIPA, PHOS ####[place] [address]#### TRANSF ####[place] [phone] Platelets 329 10*3/uL Normal 150-400 [facility] Comment on above: Performed By: #### P T, PTT, AMYL, CMP, LIPA, PHOS ####[place] [address]#### TRANSF ####[place] [phone] WBC (Leukocytes) 6.79 10*3/uL Normal 3.70-11.00 [facility] Comment on above: Performed By: #### P T, PTT, AMYL, CMP, LIPA, PHOS ####[place] [address]#### TRANSF ####[place] [phone] Comp Metabolic Panelon 10-07 Alanine aminotransferase (ALT) 32 U/L Normal 5-50 [facility] Comment on above: Performed By: #### P T, PTT, AMYL, CMP, LIPA, PHOS ####[address]#### TRANSF ####[place] [phone] Albumin 3.2 g/dL Low 3.5-5.0 [facility] Comment on above: Performed By: #### P T, PTT, AMYL, CMP, LIPA, PHOS ####[place] [address]#### TRANSF ####[place] [phone] Alkaline phosphatase (ALP) 106 U/L Normal 40-150 [facility] Comment on above: Performed By: #### P T, PTT, AMYL, CMP, LIPA, PHOS ####[place] [address]#### TRANSF ####[place] [phone] Anion gap 11 mmol/L Normal 9-18 [facility] Comment on above: Performed By: #### P T, PTT, AMYL, CMP, LIPA, PHOS ####[place] [address]#### TRANSF ####[place] [phone] Aspartate aminotransferase (AST) 30 U/L Normal 7-40 [facility] Comment on above: Performed By: #### P T, PTT, AMYL, CMP, LIPA, PHOS ####[place] [address]#### TRANSF ####[place] [phone] Bilirubin (total) 0.2 mg/dL Normal 0.0-1.5 [facility] Comment on above: Performed By: #### P T, PTT, AMYL, CMP, LIPA, PHOS ####[place] [address]#### TRANSF ####[place] [phone] Calcium 8.8 mg/dL Normal 8.5-10.5 [facility] Comment on above: Performed By: #### P T, PTT, AMYL, CMP, LIPA, PHOS ####[place] [address]#### TRANSF ####[place] [phone] Chloride 104 mmol/L Normal 98-110 [facility] Comment on above: Performed By: #### P T, PTT, AMYL, CMP, LIPA, PHOS ####[place] [address]#### TRANSF ####[place] [phone] CO2 27 mmol/L Normal 23-32 [facility] Comment on above: Performed By: #### P T, PTT, AMYL, CMP, LIPA, PHOS ####[place] [address]#### TRANSF ####[place] [address] Creatinine 0.60 mg/dL Low 0.70-1.40 [facility] Comment on above: Performed By: #### P T, PTT, AMYL, CMP, LIPA, PHOS ####[place] [address]#### TRANSF ####[place] [phone] eGFR (non-black) mL/min/{1.73_m2} Normal >60 [facility] Comment on above: Performed By: #### P T, PTT, AMYL, CMP, LIPA, PHOS ####[place] [address]#### TRANSF ####[place] [address] [address] [place] [phone] Glucose mass conc 175 mg/dL High 65-100 [facility] Comment on above: Performed By: #### P T, PTT, AMYL, CMP, LIPA, PHOS ####[place] [address]#### TRANSF ####[address] [place] [phone] Potassium molar conc 4.1 mmol/L Normal 3.5-5.0 [facility] Comment on above: Performed By: #### P T, PTT, AMYL, CMP, LIPA, PHOS ####[place] [address]#### TRANSF ####[place] [phone] Protein 6.6 g/dL Normal 6.0-8.4 [facility] Comment on above: Performed By: #### P T, PTT, AMYL, CMP, LIPA, PHOS ####[place] [address]#### TRANSF ####[place] [phone] Sodium 142 mmol/L Normal 135-146 [facility] Comment on above: Performed By: #### P T, PTT, AMYL, CMP, LIPA, PHOS ####[place] [address]#### TRANSF ####[place] [address] Urea nitrogen 20 mg/dL Normal 10-25 [facility] Comment on above: Performed By: #### P T, PTT, AMYL, CMP, LIPA, PHOS ####[place] [address]#### TRANSF ####[place] [address] [place], [place] [phone] Magnesiumon 10-07-2017 Magnesium 2.0 mg/dL Normal 1.7-2.6 [facility] Comment on above: Performed By: #### P T, PTT, AMYL, CMP, LIPA, PHOS ####[facility] [place] [phone]#### TRANSF ####[facility] [place], [place] [phone] NURSING PROGon 10-07-2017 NURSING PROG HNO ID: [id number] thor: Kevin (Rn) Clayton Walkerice: (none)Author Type: Registered NurseType: Nursing Progress NoteFiled: 10/07/2017 9:41 PMNote Text: Nursing Progress NotePatient Name: Rocio JacksonN: [id number] Location: [address] ____Daily Note:Pt medicated per MAR. Pt AANDO x3. Pt with minimal pain- Administeredscheduled Tyl per orders. No SOB or headache. IV capped per orders. RUQdrain clamped per orders. Corpak with tube feed infusing per orders.Incision to abdomen- ADELA- C,D,I. No further needs. Call werner within reach.This note was completed by: KEVIN WALKER RN [facility] NURSING PROG HNO ID: [id number] thor: Saima Kramer (Rn) Bhupinder Richardson: (none)Author Type: Registered NurseType: Nursing Progress NoteFiled: 10/07/2017 6:57 PMNote Text: Nursing Progress NotePatient Name: Rocio JacksonN: [id number] Location: [place] [address]/[id number] ____Daily Note:Pt resting in the bed and is AANDOx3. Pt has had intermittentnausea and medicated w/ PRN reglan - no emesis. Abdomen soft and tender -slightly distended. Incision open to air w/ dermabond. Pt tube feedrunning at 40ml/hr via corpak and pt tolerating. Meds are being crushedand administered via the corpak. Pt refusing creon and made Allegra, PAaware. Will try and encourage pt to take med w/ sips of clears astolerated. Lungs clear, diminished in the bases. Pt ambulates w/ oneassist and walker. Safety maintained.1615: Pt had an episode of 75cc's of emesis. Reglan administered.1735: Pt refusing creon at this time. Stated he does not want to take anypills.This note was completed by: Saima Richardson RN [facility] NURSING PROG HNO ID: [id number] thor: Kevin (Rn) Shanell, MOUSTAPHAervice: (none)Author Type: Registered NurseType: Nursing Progress NoteFiled: 10/07/2017 1:21 AMNote Text: Nursing Progress NotePatient Name: Rocio Boudreaux: [id number] Location: [place] [address]/[id number] ____Daily Note:2330- Took over care for pt. Pt assessed. Pt medicated per AUG. Pt AANDO x3.Pt with minimal pain- Administered scheduled Tyl per orders. No SOB orheadache. IV capped per orders. RUQ drain clamped per orders. Corpak withtube feed infusing per orders. Incision to abdomen- ADELA- C,D,I. No furtherneeds. Call werner within reach.This note was completed by: KEVIN WALKER RN [facility] PLAN OF CAREon 10-07-2017 PLAN OF CARE HNO ID: [id number] thor: Macie Cruz (Pharmacist)Service: PharmacyAuthor Type: PharmacistType: Plan of CareFiled: 10/07/2017 2:09 PMNote Text:MEDICATION HISTORY AND MEDICATION RECONCILIATIONPatient Name:Destiney JacksonMRN: [id number]: 1955Source of history:Family: Reliability of source: Appears reliable,clearly identified: Medication name, Medication dose, Medication route,Medication frequency and IndicationsMedication Nonadherence Identified: No barriers notedThe above information represents the best possible medication history: YesReconciliation completed? Yes All BASEBALL COACH medications addressed by LIPAdditional comments: N/AAllergies: ALLERGIESNo Known AllergiesCurrent BASEBALL COACH Medications:Prior to Admission medications as of 10/07/17 1408Medication Sig Last Dose Takingapixaban (ELIQUIS) 5 mg tab(s) Take 1 tablet by mouth twice daily.09/25/2017 Yesmetoprolol tartrate, short acting, (LOPRESSOR) 50 mg tablet Take 1 tabletby mouth every 12 hours. 09/30/2017 at 0700 Yesacetaminophen (TYLENOL) 325 mg tablet Take 2 tablets by mouth every 6hours as needed. Past Week at Unknown time Yesaspirin, enteric coated (ECOTRIN LOW STRENGTH) 81 mg EC tablet Take 162 mgby mouth once daily. 09/25/2017 Yesatorvastatin (LIPITOR) 40 mg tablet Take 40 mg by mouth daily at bedtime.09/29/2017 at 2200 YesmetFORMIN (GLUCOPHAGE) 1,000 mg tablet Take 1,000 mg by mouth twice dailywith meals. 09/29/2017 at 2100 YesOmeprazole Magnesium 20 mg cpDR Take 20 mg by mouth twice daily. 09/29/2017at 2100 Yesnitroglycerin sublingual (NITROSTAT) 0.4 mg SL tablet Dissolve 0.4 mgunder the tongue every 5 minutes as needed. NEVER USED YessAXagliptin (ONGLYZA) 5 mg tab Take by mouth once daily. 09/29/2017 at 0900YePadmini Cruz PharmacistApril 2017 2:09 PM [facility] PROGRESSon 10-07-2017 PROGRESS HNO ID: [id number] thor: Harmony (Georges) Rondae: General SurgeryAuthor Type: ResidentType: Progress NotesFiled: 10/07/2017 8:27 AMNote Text:SURGICAL SERVICES PROGRESS NOTENAME: Rocio JacksonMRN: [id number]: 10/07/2017Time: 8:16 JUDIE DATE: 09/30/20177 Days Post-OpProcedure(s) (LRB):WHIPPLE PROCEDURE, WITH PANCREATOJEJUNOST (N/A)Hospital Day: 8Active Problems: Severe protein-calorie malnutrition (HCC) Duodenal cancer (HCC)Resolved Problems: * No resolved hospital problems. *ASSESSMENT AND PLAN: Rocio Jackson is a 62 year old male with history ofHTN, DM, CAD s/p PCI, who underwent a classic whipple for an obstructingduodenal mass 09/30, who was admitted to the SICU for postoperative care. JPamylase on POD 3 nml, removed. Transferred to [facility]??Patient did well overnight with no acute issues and no complaints. Theydeny any chest pain, fever. Still had a smaller volume emesis, but feelsbetter. Will obtain an abdominal x ray this morning. Has been able towalk. Pain moderately controlled on current regimen.?- OOB as tolerated- BPH, IS, wean supplemental O2- Sips as tolerated- Continue tube feeds, severe protein-calorie malnutrition- Continue creon; IV reglan prn for nausea and erythromycin 200mg ac/hsfor DGE- IPCs, SQH- Continue care on [facility]; will begin disposition planning todayPHYSICAL EXAM:GENERAL: AOx3, NADLUNGS: Nonlabored breathingABDOMEN: Soft, non-distendedSKIN: Warm, well perfusedBP 147/79 Pulse 63 Temp 37.3 ?C (99.1 ?F) (Oral) Resp 16 Ht 172.7cm (5' 7.99 ) Wt 88.8 kg (195 lb 12.3 oz) SpO2 97% BMI 29.77 kg/m2Date 10/06/17 0700 - 10/07/17 0659 10/07/17 07 - 10/08/17 0659Shift 6347-3819 0041-4001 4794-2598 24 Hour Total 3101-4831 5262-25986760-6817 24 Hour TotalINTAKE PO 956 956 Tube Feed Intake (GI Feed/Drain 09/30/17 Small Bore Feeding Right Naris10 Fr) 956 956 Irrigants 5 5 100 110 Irrigant/Flush Amount In (Drain/Tube 08/27/17 Admission to HospitalRight Upper Quadrant Abdomen Drain #3) 5 5 10 Irrigant/Flush Amount In (GI Feed/Drain 09/30/17 Small Bore FeedingRight Naris 10 Fr) 100 100 Shift Total 5 5 1056 1066OUTPUT Urine 400 016 235 2835 Void (ml) 400 877 737 0055 Emesis 150 150 Emesis (ml) 150 150 Tubes 0 0 0 Drain/Tube Output (Drain/Tube 08/27/17 Admission to Hospital RightUpper Quadrant Abdomen Drain #3) 0 0 0 # of BMs Number of BMs 1 x 1 x 1 x 3 x Shift Total 400 350 650 1400Weight (kg) 88.8 88.8 88.8 88.8 88.8 88.8 88.8 88.8DIAGNOSTIC STUDIES:CBC:Hemoglobin (g/dL)Date Value10/07/2017 8.9 Hematocrit (%)Date Value10/07/2017 28.9 WBC (k/uL)Date Value10/07/2017 6.79 Platelet Count (k/uL)Date Value10/07/2017 329 CMP:BMP:Glucose 175 10/07/2017BUN 20 10/07/2017Creatinine 0.60 10/07/2017Sodium 142 10/07/2017Potassium 4.1 10/07/2017Chloride 104 10/07/2017CO2 27 10/07/2017Protein, Total 6.6 10/07/2017Albumin 3.2 10/07/2017Calcium 8.8 10/07/2017Alkaline Phosphatase 106 10/07/2017Bilirubin, Total 0.2 10/07/2017AST 30 10/07/2017ALT 32 10/07/2017NURY Mejia II general surgery 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-greenPager [phone] - Personal Normal [facility] PT EDon 10-07-2017 PT ED HNO ID: [id number] thor: Macie Cruz (Pharmacist)Service: PharmacyAuthor Type: PharmacistType: Patient EducationFiled: 10/07/2017 2:13 PMNote Text:Clinical Pharmacy ServicesHigh Risk: Daily Medication AssessmentPatient Name: Rocio HayesN: [id number] Date: 09/30/2017Sere Date and Time: 10/07/2017 2:12 PMNew MedicationsThe following medications have been started since last pharmacy review:naloxone, oxycodone, chloraceptic, scopolamineMedication education has been completed: YesSignature: Macie Cruz PharmacistFairview: [phone]: [phone] [facility] PT ED HNO ID: [id number] thor: Macie Cruz (Pharmacist)Service: PharmacyAuthor Type: PharmacistType: Patient EducationFiled: 10/07/2017 2:12 PMNote Text:Clinical Pharmacy ServicesHigh Risk: Daily Medication AssessmentPatient Name: Rocio HayesN: [id number] Date: 09/30/2017Sere Date and Time: 10/07/2017 2:11 PMNew MedicationsThe following medications have been started since last pharmacy review:lantus, humalog, creon, magnesium, metoclopramideMedication education has been completed: YesSignature: Macie Cruz PharmacistFairview: [phone]: [phone] [facility] PT ED HNO ID: [id number] thor: Macie Cruz (Pharmacist)Service: PharmacyAuthor Type: PharmacistType: Patient EducationFiled: 10/07/2017 2:11 PMNote Text:Clinical Pharmacy ServicesHigh Risk: Daily Medication AssessmentPatient Name: Rocio HayesN: [id number] Date: 09/30/2017Sere Date and Time: 10/07/2017 2:10 PMNew MedicationsThe following medications have been started since last pharmacy review:dextrose, glucagon, erythromycin, fentanyl, heparinMedication education has been completed: YesSignature: Macie Cruz PharmacistFairview: [phone]: [phone] [facility] Phosphoruson 10-07-2017 Phosphate 3.0 mg/dL Normal 2.5-4.5 [facility] Comment on above: Performed By: #### P T, PTT, AMYL, CMP, LIPA, PHOS ####[facility] [place], [place] [phone]#### TRANSF ####[facility] [address] [place], [place] [phone] THERAPY NTon 10-07-2017 THERAPY NT HNO ID: [id number] thor: Adela ([facility]) Jhonatane: Physical TherapyAuthor Type: Physical Therapy AssistantType: Therapy (PT/OT/Speech/Resp)Filed: 10/07/2017 11:18 AMNote Text: -Attestation signed by Tonia Schmitz at 10/07/2017 12:03 PMI reviewed and agree with the documentation corresponding to this therapyvisit.SIGNATURE: Tonia Schmitz, PTDATE: October 07, 2017TIME: 12:03 PM Ph ysical Therapy TreatmentSERVICE DATE: 10/07/2017SERVICE TIME: 1000 to 1025ROOM: [id number]/p Derba procedureRecommended Discharge Disposition: Home PTRecommended Discharge Disposition Comments: (pt to return to [facility] )Justification For Post Acute Needs: Willing toparticipate;Motivated;Destinee ng the community premorbidly;Good sittingtolerance;Good family support;Cognition intactAnticipated Discharge Needs: Physical Assist at HomePhysical Assist at Home for: Cleaning;Laundry;Shopping;Tr ansportationRecommended Discharge Equipment: To Be DeterminedPT Recommendations to Nursing: Ambulate with device;To bathroom;Inhalls;OOB for Meals;With assist of 1 personDevice: Wheeled WalkerPT 6 Clicks Score: 18Precautions/Activity Restrictions: Fall Risk;Lines/Tubes/DrainsPreca ution/Activity Restriction Comments: tube feed, mobilize ptASSESSMENT :Pt reports he feels better, intermittent nausea sreekanth after taking pillsthis a.m. Pt;s sister present and [facility] upondischarge with Home PT follow up. Pt on tube feed intact at this timePatient Disposition at Start of Session: Supine in Bed;BedAlarm;SCDs;Family PresentPatient Disposition at End of Session: Call Werner in [place];OOB inChair;Chair AlarmTolerance Limited By Fatigue (intermittent nausea)Physical Therapy Problem List: Pain;Decreased Strength;Functional MobilityImpairment;Decreased Activity TolerancePatient /Caregiver Goals: ( get stronger )Goals for Plan of Care:Able to perform HEP with: IndependentRolling with: Minimal AssistanceTransfer supine to/from sit with: Minimal AssistanceTransfer sit to/from stand with: Moderate AssistanceAmbulate with: Moderate AssistanceDistance: 50Device: Wheeled WalkerProgress Toward Goals: Progressing as expectedRehab Potential: GoodPLAN:Treatment Frequency (times per week): 1;2 Current admissionTreatment Interventions: Education;Strengthening;Func tional MobilityTraining;Balance Training;Energy Conservation TrainingPlan of Care developed with: PatientTREATMENT INTERVENTIONS:Therapy Diagnosis: Reduced mobility-other;Muscle Weakness(generalized);Genera l symptoms and signs-otherInterventions Provided: Therapeutic Exercise (52072);Gait Training (46376)Therapeutic Exercise (88219) Treatment Minutes: 101 unitSkilled Intervention(s): Instruction in therapeutic exercise in sittingposition for B LE strengtheningVerbal and tactile cuing provided for performance and pace.Gait Training (04848) Treatment Minutes: 151 unitSkilled Intervention(s): Instruction in sit to stand technique with properhand placement and body positioning at edge of bed/chair, Instruction instand to sit technique with LE's touching chair/bed and reaching back forsurface, Instruction in sequencing, gait pattern, Instruction incorrection of gait deviations and Instruction in use of equipment, cuesfor sequence and patternTotal Timed Code Treatment Minutes: 25Total Treatment Time (minutes): 25FUNCTIONAL G CODE:PT 6 Clicks Score: 18 (10/07/17 1000)Mobility: Walking and Moving Around Current Status (G8978): CL ()Mobility: Walking and Moving Around Goal Status (G8979): CK ()Based on clinical assessment and the score on the 6 Clicks FunctionalAssessment Tool, the G code and corresponding severity modifiers aredocumented above.SUBJECTIVE:Current Hospital Course: Chart reviewed and no significant medical updatesrelevant to therapy were notedReason for Physical Therapy Consult : mobility assessmentRelevant Past Medical History: HTN, DM, MD, richelle 08/11/17, ARF, refer tochart for full PMHPatient Report: sure, i'd like to walk Home EnvironmentPatient Lives With: Family (pt has been staying with his sister; plan toreturn at d/c)Assistance Available: PRNEntry To Home: StairsNumber Of Stairs Into Home: 1Number Of Stairs To Bed/Bath: 0Tub/Shower Type: tub showerLaundry: sister performedEquipment Owned: Cane;Standard WalkerPrior Functional Level: Required AssistanceAssistance Required With: Transportation;Shopping;Meal s;Cleaning;LaundryPrior Functional Level Comments: Per pt, has been staying with his sistersince d/c from SNF. Typically lives with his son and dtr. Pt rpeorting IndADLs and has assist with all IADLs. Works in [employer]. Amb Ind.OBJECTIVE:Mini Cog Score: 1 (10/02/17 0820)CURRENT FUNCTIONAL STATUS:Current Functional Mobility Assist Level Additional InformationRolling Minimal AssistanceSupine to Sit Minimal AssistanceSit to Supine Minimal AssistanceScooting Minimal AssistanceSit to Stand Contact Guard AssistanceStand to SitBed to ChairToilet/CommodeGait Contact Guard Assistance Gait Device: Wheeled Walker Gait Distance (feet): 210 ftStairsCurb StepCar TransferGeneral Gait Deviations: Anushka decreased;Step length decreased;Flexedtrunk postureBalance: Static SittingStatic Sitting Balance: Minimal Assistance (min to CGA)Activity Tolerance: Sitting ActivitySitting Activity: Pt dangled at EOB for strengthening, balance, and toallow his body to adjust ot upright position. Pt required min assistanceto maintain balance initially and then able to maintain with CGA/SBA. Ptreports dizziness when seated, BP taken to be 76/52, pt assisted in thesupine position where pt reports dizziness improved, RN notifiedSitting Activity Tolerance (in minutes): 4Please see discipline specific clinical documentation flowsheet forcomplete details for this therapy evaluation/treatment.SIGNATU RE: Adela Leong PTA PATIENT NAME: Rocio Sibley: October 07, 2017 : 11:15 AM PAGER/CONTACT #: [phone] [facility] XR ABD 2V SUPINE W UPR/DECUB /CTLon 10-07-2017 XR ABD 2V SUPINE W UPR/DECUB/CTL * * *Final Report* * *DATE OF EXAM: Oct 07 2017 12:41PM FVX 5356 - XR ABD 2V SUPINE W UPR/DECUB/CTL / REASON: Small bowel obstruction * * * * Physician Interpretation * * * * CLINICAL: Small bowel obstructionTECHNIQUE: Single KUB of the abdomen.FINDINGS: A nonspecific nonobstructive bowel gas pattern is present. A catheter overlies the right upper quadrant and the left midabdomen. Seen. The osseous structures are grossly normal.IMPRESSION:Nonspecifi c nonobstructive bowel gas patternTranscriptionist: PSCB Transcribe Date/Time: Oct 07 2017 1:02PDictated by : RENATE MACK MDThis examination was interpreted and the report reviewed and electronically signed by: RENATE MACK MD on Oct 07 2017 1:03PM [id number] [facility] XR CHEST 1V FRONTALon 2017 XR CHEST 1V FRONTAL * * *Final Report* * *DATE OF EXAM: Oct 07 2017 12:41PM FVX 5290 - XR CHEST 1V FRONTAL / REASON: Small bowel obstruction * * * * Physician Interpretation * * * * EXAMINATION: CHEST RADIOGRAPH (SINGLE VIEW AP OR PA)Clinical History: Small bowel obstructionMQ: XC1_5Comparison:RESULT:Lines , tubes, and devices: None.Lungs and pleura: No consolidation. No lung mass. No pleural effusion.Cardiomediastinal silhouette: Normal cardiomediastinal silhouette.Other: .IMPRESSION:No acute radiographic abnormality.Ergonomic Specialist : NII Transcribe Date/Time: Oct 07 2017 12:50PDictated by : RENATE MACK MDThis examination was interpreted and the report reviewed and electronically signed by: RENATE MACK MD on Oct 07 2017 1:02PM [id number] [facility] ALLIED HEALTHon 10-06-2017 ALLIED HEALTH HNO ID: [id number] thor: Sally Santoyo (Rt)e: RadiologyAuthor Type: TechnicianType: Allied HealthFiled: 10/06/2017 6:41 AMNote Text: Radiology Service Progress NotePATIENT NAME: Rocio JacksonMRN: [id number] OF SERVICE: October 06, 2017TIME: 6:34 AMPATIENT IDENTITY VERIFICATION COMPLETED USING TWO (2) METHODS: Patientconfirmed name verbally and ID band matches..PATIENT GENDER DATA: MalePATIENT RELEVANT IMPLANT DATA REVIEWED: Not ApplicableRADIOLOGY DEPARTMENT: General X-ray: Exam(s) Completed: Abdomen X-RayAbdomenPERIPHERAL IV DATA: Not applicableSIGNED BY: Richelle Santoyoil 2017 6:41 AM [facility] CASE MANAGEMon 10-06-2017 CASE MANAGEM HNO ID: [id number] thor: Norberto Arechiga (Sw)umboService: Care ManagementAuthor Type: Social WorkerType: Care Mgt Progress NoteFiled: 10/06/2017 12:29 PMNote Text:MULTIDISCIPLINARY ROUNDSSERVICE DATE: 10/06/2017 ADMISSION DATE: 09/30/2017SERVICE TIME: 12:27 PM ANTICIPATED D/C DATE: 10/07/2017Problem List:ACTIVE PROBLEM LISTDuodenal ObstructionSevere Protein-Calorie Malnutrition (Hcc)Duodenal Cancer (Hcc)Attendees Present at Rounds:Cement Patcher:Nurse Accessioner/Principal Embedded Software Engineer Nurse Accessioner:Machining Engineer:Staff Nurse:Needs Discussed on Rounds:Discharge NeedsAnticipated Discharge Disposition:Home with Home Health CareLast Vitals: BP 132/80 Pulse 79 Temp (Src) 98.7 (Oral) Resp 16 Ht5' 7.992 (1.73m) Wt 195 lb 12.3 oz (88.8kg) SpO2 96% BMI 29.77kg/(m2).Pt plans on going to his sister's house at d/c. [facility]and would like [facility] at [facility]/c. Referral updated today. Pt continues w/tube feed today. Undetermined at this time if he will continue tube feedsat d/c.Nursing:Bleeding Intervention(s) Plan: Assess for Related Signs/Symptom ofBleeding;Bleeding Precautions;Monitor I AND O;Monitor Vital Signs;Monitorand Record Blood Loss;Monitor Labs: CBC, INR, PTT/PTBleeding Goals/Outcomes: Exhibits Increased Interest and AssumeResponsibility for Patient's Own/Family Learning by Beginning to Look forInformation and Ask Questions;Free of Signs/Symptom ActiveBleeding;Patient Bleeding Controlled and Vital Signs RemainStable;Displays No Significant Decrease in Hgb/Hct LevelsBleeding Goal Target Achievement Date: 10/08/17luid/ElectrolyteInt ervention(s) Plan: Assess for Signs/Symptom of Dehydration and FluidOverload;Monitor Lab Values;Monitor Patient Vital Signs and Intake andOutput;Review Current Medication and Medication History and AdministerMedications as OrderedFluid/Electrolyte Goals/Outcomes: Appropriate Fluid and ElectrolyteBalance Achieved and Maintained;Exhibits Increased Interest and AssumeResponsibility for Patient's Own/Family Learning by Beginning to Look forInformation and Ask QuestionsFluid/Electrolyte Goal Target Achievement Date: 10/08/17Mobility Intervention(s) Plan: Advance Mobility;Encourage Patient/Familyto Participate in Care;Mobility Assist DeviceMobility Patient/Family Goals: Exhibits Increased Interest and AssumeResponsibility for Patient's Own/Family Learning by Beginning to Look forInformation and Ask Questions;Patient Attained Highest Level of Functionalof Mobility;Patient Free of Complications such as Skin Breakdown,Contractures, Loss of Joint Mobility During HospitalizationMobility Goal Target Achievement Date: 10/08/17Pain Intervention(s) Plan: Pain Assessment, Management, Reassessment PerScoring Tool;Provide Quiet and Restful Environment;Review CurrentMedication and Medication History and Administer Medications as OrderedPain Goals/Outcomes: Decrease in Pain Level per Scoring Tool;ExhibitsIncreased Interest and Assume Responsibility for Patient's Own/FamilyLearning by Beginning to Look for Information and Ask Questions;PatientVerbalizes Acceptable Level of Comfort and is Able to Carry Out Activitiesof Daily LivingPain Goal Target Achievement Date: 10/08/17DOCUMENTED BY: MARINO Lopez PATIENT NAME: Rocio VizcararTE: October 06, 2017 : 12:27 PM CSN: [id number] [facility] CBC and Differentialon 10-06 Abs Baso <0.03 Normal <0.11 [facility] Comment on above: Performed By: #### P T, PTT, AMYL, CMP, LIPA, PHOS ####[place] [address]#### TRANSF ####[place] [id number] Abs [place] 0.46 k/uL Normal <0.87 [facility] Comment on above: Performed By: #### P T, PTT, AMYL, CMP, LIPA, PHOS ####[place] [address]#### TRANSF ####[place] [id number] Abs Neut 4.56 k/uL Normal 1.45-7.50 [facility] Comment on above: Performed By: #### P T, PTT, AMYL, CMP, LIPA, PHOS ####[place] [address]#### TRANSF ####[place] [address] Basophils/100 WBC Auto (Bld) 0.1 % Normal [facility] Comment on above: Performed By: #### P T, PTT, AMYL, CMP, LIPA, PHOS ####[place] [address]#### TRANSF ####[place] [id number] DTYPE Auto Diff Normal [facility] Comment on above: Performed By: #### P T, PTT, AMYL, CMP, LIPA, PHOS ####[place] [address]#### TRANSF ####[place] [id number] Eosinophils 0.03 10*3/uL Normal <0.46 [facility] Comment on above: Performed By: #### P T, PTT, AMYL, CMP, LIPA, PHOS ####[place] [address]#### TRANSF ####[place] [phone] Eosinophils/100 leukocytes 0.4 % Normal [facility] Comment on above: Performed By: #### P T, PTT, AMYL, CMP, LIPA, PHOS ####[place] [address]#### TRANSF ####[place] [phone] Erythrocyte distribution width Auto Ratio (RBC) 16.5 % High 11.5-15.0 [facility] Comment on above: Performed By: #### P T, PTT, AMYL, CMP, LIPA, PHOS ####[place] [address]#### TRANSF ####[place] [id number] Erythrocytes (RBC) 3.91 10*6/uL Low 4.20-6.00 [facility] Comment on above: Performed By: #### P T, PTT, AMYL, CMP, LIPA, PHOS ####[place] [address]#### TRANSF ####[place] [id number] Hematocrit (HCT) 31.3 % Low 39.0-51.0 [facility] Comment on above: Performed By: #### P T, PTT, AMYL, CMP, LIPA, PHOS ####[place] [address]#### TRANSF ####[place] [phone] Hemoglobin mass conc (Bld) 10.0 g/dL Low 13.0-17.0 [facility] Comment on above: Performed By: #### P T, PTT, AMYL, CMP, LIPA, PHOS ####[place] [address]#### TRANSF ####[place] [phone] Lymphocytes 1.97 10*3/uL Normal 1.00-4.00 [facility] Comment on above: Performed By: #### P T, PTT, AMYL, CMP, LIPA, PHOS ####[place] [address]#### TRANSF ####[place] [address] Lymphocytes/100 leukocytes 28.0 % Normal [facility] Comment on above: Performed By: #### P T, PTT, AMYL, CMP, LIPA, PHOS ####[place] [address]#### TRANSF ####[place] [address] MCH 25.6 pG Low 26.0-34.0 [facility] Comment on above: Performed By: #### P T, PTT, AMYL, CMP, LIPA, PHOS ####[place] [address]#### TRANSF ####[place] [id number] MCHC mass conc (RBC) 31.9 g/dL Normal 30.5-36.0 [facility] Comment on above: Performed By: #### P T, PTT, AMYL, CMP, LIPA, PHOS ####[place] [address]#### TRANSF ####[place] [phone] MCV 80.1 fL Normal 80.0-100.0 [facility] Comment on above: Performed By: #### P T, PTT, AMYL, CMP, LIPA, PHOS ####[place] [address]#### TRANSF ####[place] [address] Monocytes/100 leukocytes 6.5 % Normal [facility] Comment on above: Performed By: #### P T, PTT, AMYL, CMP, LIPA, PHOS ####[place] [address]#### TRANSF ####[place] [address] Neutrophils/100 WBC Auto (Bld) 65.0 % Normal [facility] Comment on above: Performed By: #### P T, PTT, AMYL, CMP, LIPA, PHOS ####[address]#### TRANSF ####[place] [id number] Platelet mean volume (PMV) 9.2 fL Normal 9.0-12.7 [facility] Comment on above: Performed By: #### P T, PTT, AMYL, CMP, LIPA, PHOS ####[address] [phone]#### TRANSF ####[address] [phone] Platelets 358 10*3/uL Normal 150-400 [facility] Comment on above: Performed By: #### P T, PTT, AMYL, CMP, LIPA, PHOS ####[place] [phone]#### TRANSF ####[address] [phone] WBC (Leukocytes) 7.03 10*3/uL Normal 3.70-11.00 [facility] Comment on above: Performed By: #### P T, PTT, AMYL, CMP, LIPA, PHOS ####[place] [phone]#### TRANSF ####[address] [phone] CONSULT PROGon 10-06-2017 CONSULT PROG HNO ID: [id number] thor: Damaris Rojasice: EndocrinologyAuthor Type: PhysicianType: Consult Progress NoteFiled: 10/06/2017 5:16 PMNote Text:ENDOCRINOLOGY PROGRESS NOTEPATIENT NAME: Rocio JacksonMRN: [id number] DATE: 10/06/2017SERVICE TIME: 5:07 PMREASON FOR CONSULT: DM Type 2REQUESTING PHYSICIAN: ASHLEY LomeliubjectiveHISTORY OF PRESENT ILLNESS: Mr. Jackson is a 62 year old male whopresented with nausea, emesis, and an unintentional weight loss of over 20lbs. He underwent classic Whipple surgery 09/30/[address] Dr. Jolley. He is receiving enteral nutrition since10/01/2017. History of well controlled Type 2 DM dx 1-2 years ago treatedwith oral agents saxagliptin 5 mg daily and metformin 1000 mg twice dailywith meals. He was transfused with pRBC on 10/02/2017 so obtaining a FgI6aorg will not be helpful. Low dose Lantus was started yesterday. Bloodglucose in the 200 mg/dL range today. Patient is sleeping when I visithim today with family by bedside.PAST MEDICAL HISTORYDiagnosis Date- Bleeding ulcer 11/15/2016 required 5 blood transfusions- Diabetes mellitus (HCC) 2016- Glaucoma- Hypertension- Myocardial infarction (HCC) 05/15/2011PAST SURGICAL HISTORYProcedure Laterality Date- ANGIOPLASTY HX 05/15/2011 2 stents s/p MD;[facility]- CHOLECYSTECTOMY 08/11/2017 [facility]- PICC LINE INSERT/CONSULT 08/16/2017No family history on file.Social HistorySubstance Use Topics- Smoking status: Former Smoker Types: Cigarettes Quit date: 2010- Smokeless tobacco: Never Used- Alcohol use 1.5 oz/week 1 Cans of Beer (12oz) per week Comment: occasional beerCURRENT MEDICATION:Current Facility-Administered Medications:erythromycin ethyl succinate 200 mg oral liquid (E.E.S.) 200 mg ORAL wMEALS AND HS Allegra S (Pa) Miglionico 200 mg at 10/06/17 1101scopolamine 1 mg over 3 days 1 Patch (TRANSDERM-SCOP) 1 Patch TRANSDERMALq 72 HR Allegra S (Pa) Miglionico 1 Patch at 10/06/17 1100And[START ON 10/09/2017] scopolamine - REMOVE PATCH OTHER q 72 HR Allegra S(Pa) MiglionicoAndscopolamine - VERIFY patch OTHER q 8 H Allegra S (Pa) Miglionicoinsulin glargine 10 Units injection (long acting) (LANTUS) 10 UnitsSUBCUTANEOUS AT BEDTIME Damaris Whitmerinsulin lispro injection (rapid acting) (HumaLOG) SUBCUTANEOUS q 6 HDorota Lauren 4 Units at 10/06/17 1320fentaNYL 50 mcg/mL 25 mcg injection (SUBLIMAZE) 25 mcg INTRAVENOUS q 4 HPRN Allegra S (Pa) Miglionicoacetaminophen 650 mg CUP (TYLENOL) 650 mg ORAL q 6 H Allegra S (Pa)Miglionico 650 mg at 10/06/17 1320oxyCODONE 5 mg oral liquid (ROXICODONE) 5 mg ORAL q 4 H PRN Yrn Cedillo)Gonzalo 5 mg at 10/05/17 4749ztvtys-avnrrejt-keabpfc 2 capsule cap(s) (CREON 24) 2 capsule ORAL TID wMEALMilly Pruett (Res) MD Jane 2 capsule at 10/04/17 1740phenol 1 [place] (CHLORASEPTIC) 1 [place] MUCOUS MEMBRANE (TOPICAL MOUTH ANDTHROAT) q 2 H PRN Kolby (Res) Kevin 1 [place] at 10/02/17 14262.9% NaCl 2-10 mL 2-10 mL INTRAVENOUS q 12 H Mundo (Res)(Hist) Puzsuri39 mL at 10/06/17 0842naloxone 0.2 mg injection (NARCAN) 0.2 mg INTRAVENOUS PRN Yrn ()Bhatnagaraspirin, enteric coated 162 mg tab(s) (ASPIRIN, ENTERIC COATED) 162 mgORAL DAILY Mundo (Res)(Hist) Sideris 162 mg at 10/03/17 0828nitroglycerin sublingual 0.4 mg tab(s) (NITROQUICK) 0.4 mg SUBLINGUAL q 5MIN PRN Mundo (Res)(Hist) Siderisdextrose 40 % 15 g 15 g ORAL PRN Mundo (Res)(Hist) SiderisOrglucagon 1 mg injection (GLUCAGEN) 1 mg INTRAMUSCULAR PRN Mundo(Res)(Hist) SiderisOrdextrose 50% in water 25 mL syringe 12.5 g INTRAVENOUS PRN Mundo(Res)(Hist) Siderismagnesium sulfate in water 2 g in sterile water 50 ml 2 g INTRAVENOUSPRN(NO DISPENSE) Mundo (Res)(Hist) Siderisheparin 5,000 Units injection 5,000 Units SUBCUTANEOUS q 12 H Mundo(Res)(Hist) Sideris 5,000 Units at 10/06/17 0837metoclopramide HCl 10 mg injection (REGLAN) 10 mg INTRAVENOUS q 6 H PRNAntonaaron (Res)(Hist) Sideris 10 mg at 10/06/17 0837Allergies As of Date: 09/16/2017(No Known Allergies)Fully Assessed 09/15/2017COMPLETE REVIEW OF SYSTEMS:General: no fever, chillsSkin: no rashes, but has dry skinPulmonary: does not appear dyspneicObjectivePHYSICAL EXAM:BP 132/80 Pulse 79 Temp 37.1 ?C (98.7 ?F) (Oral) Resp 16 Ht 172.7 cm(5' 7.99 ) Wt 88.8 kg (195 lb 12.3 oz) SpO2 96% BMI 29.77 kg/k0Ermbgpt: Well appearing, sleeping, in no acute distress.Skin: skin color is pale.Heart: RRRExtremities: no edema present.DATA:Diagnostic tests reviewed for today's visit:Most recent labsComponent Glucose, Point of Care InsulinLatest Ref Rng AND Units 74 - 99 mg/dL10/05/2017 5:35 AM 176 (A) H110/05/2017 12:04 PM 184 (A) 12/03/2018 5:29 PM 206 (A) 22/03/2018 11:59 PM 168 (A) Lantus 5H11/04/2018 6:04 AM 212 (A) 21/04/2018 12:12 PM 237 (A) F8Dsydcyzko Latest Ref Rng AND Units 10/06/2017 5:51 AMProtein, Total 6.0 - 8.4 g/dL 7.3Albumin 3.5 - 5.0 g/dL 3.4 (L)Calcium 8.5 - 10.5 mg/dL 9.2Bilirubin, Total 0.0 - 1.5 mg/dL 0.2Alkaline Phosphatase 40 - 150 U/L 108AST 7 - 40 U/L 23Glucose 65 - 100 mg/dL 208 (H)BUN 10 - 25 mg/dL 16Creatinine 0.70 - 1.40 mg/dL 0.54 (L)Sodium 135 - 146 mmol/L 143Potassium 3.5 - 5.0 mmol/L 4.3Chloride 98 - 110 mmol/L 103CO2 23 - 32 mmol/L 24Anion Gap 9 - 18 mmol/L 16ALT 5 - 50 U/L 28eGFR- >60 >60eGFR-All Other Races >60 . >60Assessment/Plan62 year old male presenting with weight loss and emesis who underwentclassic Whipple surgery 09/30/2017 for obstructing duodenal mass by . Hx of well controlled DM Type 2 dx 1-2 years ago on oralhypoglycemics saxagliptin and metformin and CAD s/p PCI in 2010. Endocrineconsult for glycemic management in the setting of enteral nutrition since10/01/2017. He has difficulty swallowing pills. He is having some nauseatoday and emesis last night. He was transfused with pRBC on 10/02/2017 soobtaining a HbA1c now will not be helpful.?-increase Lantus from 5 to 8 units at bedtime - insulin should be held iftube feeds are held or discontinued-increase SSI from #1 to #2 given every 6 hours-clear liquid diet-glucose monitoring every 6 hours-hopefully we can resume oral hypoglycemics at hospital discharge oncepatient has less dysphagia?will followASHLEY العراقيIGNATURE: Damaris Aguilar, MDDATE: October 06, 2017TIME: 5:07 PM Normal [facility] Comp Metabolic Panelon 10-06 Alanine aminotransferase (ALT) 28 U/L Normal 5-50 [facility] Comment on above: Performed By: #### P T, PTT, AMYL, CMP, LIPA, PHOS ####[place] [address]#### TRANSF ####[place] [phone] Albumin 3.4 g/dL Low 3.5-5.0 [facility] Comment on above: Performed By: #### P T, PTT, AMYL, CMP, LIPA, PHOS ####[place] [address]#### TRANSF ####[place] [phone] Alkaline phosphatase (ALP) 108 U/L Normal 40-150 [facility] Comment on above: Performed By: #### P T, PTT, AMYL, CMP, LIPA, PHOS ####[place] [address]#### TRANSF ####[place] [phone] Anion gap 16 mmol/L Normal 9-18 [facility] Comment on above: Performed By: #### P T, PTT, AMYL, CMP, LIPA, PHOS ####[place] [address]#### TRANSF ####[place] [phone] Aspartate aminotransferase (AST) 23 U/L Normal 7-40 [facility] Comment on above: Performed By: #### P T, PTT, AMYL, CMP, LIPA, PHOS ####[place] [address]#### TRANSF ####[place] [phone] Bilirubin (total) 0.2 mg/dL Normal 0.0-1.5 [facility] Comment on above: Performed By: #### P T, PTT, AMYL, CMP, LIPA, PHOS ####[place] [address]#### TRANSF ####[place] [phone] Calcium 9.2 mg/dL Normal 8.5-10.5 [facility] Comment on above: Performed By: #### P T, PTT, AMYL, CMP, LIPA, PHOS ####[place] [address]#### TRANSF ####[place] [phone] Chloride 103 mmol/L Normal 98-110 [facility] Comment on above: Performed By: #### P T, PTT, AMYL, CMP, LIPA, PHOS ####[place] [address]#### TRANSF ####[place] [phone] CO2 24 mmol/L Normal 23-32 [facility] Comment on above: Performed By: #### P T, PTT, AMYL, CMP, LIPA, PHOS ####[address]#### TRANSF ####[place] [phone] Creatinine 0.54 mg/dL Low 0.70-1.40 [facility] Comment on above: Performed By: #### P T, PTT, AMYL, CMP, LIPA, PHOS ####[place] [address]#### TRANSF ####[place] [phone] eGFR (non-black) mL/min/{1.73_m2} Normal >60 [facility] Comment on above: Performed By: #### P T, PTT, AMYL, CMP, LIPA, PHOS ####[place] [address]#### TRANSF ####[place] [phone] Glucose mass conc 208 mg/dL High 65-100 [facility] Comment on above: Performed By: #### P T, PTT, AMYL, CMP, LIPA, PHOS ####[address]#### TRANSF ####[place] [phone] Potassium molar conc 4.3 mmol/L Normal 3.5-5.0 [facility] Comment on above: Performed By: #### P T, PTT, AMYL, CMP, LIPA, PHOS ####[place] [address]#### TRANSF ####[place] [phone] Protein 7.3 g/dL Normal 6.0-8.4 [facility] Comment on above: Performed By: #### P T, PTT, AMYL, CMP, LIPA, PHOS ####[place] [address]#### TRANSF ####[place] [phone] Sodium 143 mmol/L Normal 135-146 [facility] Comment on above: Performed By: #### P T, PTT, AMYL, CMP, LIPA, PHOS ####[place] [address]#### TRANSF ####[place] [address] Urea nitrogen 16 mg/dL Normal 04-22 [facility] Comment on above: Performed By: #### P T, PTT, AMYL, CMP, LIPA, PHOS ####[place] [address]#### TRANSF ####[place] [phone] Magnesiumon 10-06-2017 Magnesium 2.0 mg/dL Normal 1.7-2.6 [facility] Comment on above: Performed By: #### P T, PTT, AMYL, CMP, LIPA, PHOS ####[place] [address]#### TRANSF ####[place] [address] NURSING PROGon 10-06-2017 NURSING PROG HNO ID: [id number] thor: Pramod (Rn) Clayton Mckennaice: (none)Author Type: Registered NurseType: Nursing Progress NoteFiled: 10/06/2017 6:57 PMNote Text: Nursing Progress NotePatient Name: Rocio HayesN: [id number] Location: [place] [address]/YE-[id number]-14 ____Daily Note:10/06/17 0800 (late entry)- Patient is resting in bed, he isalert and oriented times three, calm and cooperative. Sisters remain atbedside. Assisted patient with two person assist to ambulate to thenursing station and then to sit in the chair. Hand grasps and push/pullsare equal bilaterally, pulses are palpable with good movement andsensation. Patient denies any numbness or tingling. Generalized, nonpitting edema noted to the bilateral lower extremities. Lungs are clearwith diminished bases. Abdomen is soft, tender, bowel sounds are activein all quadrants. Patient complaining of intermittent nausea, no emesesnoted. Midline incision is open to air, well approximated, closed withdermabond, no drainage noted. Drain noted to right upper quadrant;flushed with saline per orders. Corpak in place, tube feed runningwithout issue. PAS being worn bilaterally. No pain at this time.Medicated with PRN reglan. Call light and belongings are within reach.10/06/17 1800- Patient is resting in bed, his sisters remain at bedside.Patient has ambulated around the pod three times this shift, steady withstand by and a walker. Pain controlled with scheduled tylenol. Corpakremains in place, tube feed running without issue. Nausea has improved.Decreased tube feed to 40/hr at approximately to possibly assisted withnausea; SAIMA Galeas, is aware. Call light and belongings are withinreach.This note was completed by: Pramod Mckenna RN [facility] NURSING PROG HNO ID: [id number] thor: Jennifer Humphries (Rn) MOUSTAPHA Websterervice: (none)Author Type: Registered NurseType: Nursing Progress NoteFiled: 10/06/2017 6:15 AMNote Text: Nursing Progress NotePatient Name: Rocio Boudreaux: [id number] Location: [place] [address]/BM-AE1P-[id number] ____ Text page sent to surgical services manager to notify again that pt had [id number] emesis of bile (no tube feed color in any emesis tonight).This note was completed by: Jennifer Webster RN [facility] NURSING PROG HNO ID: [id number] thor: Jennifer Humphries (Rn) Eleanor, RNService: (none)Author Type: Registered NurseType: Nursing Progress NoteFiled: 10/06/2017 3:17 AMNote Text: Nursing Progress NotePatient Name: Rocio JacksonMRN: [id number] Location: [place] [address]/PR-PH3G-[id number] ____ Pt with two episodes of emesis tonight of green bile color. notified earlier of emesis and two episodes on day shift.States to continue TF and have pt be NPO with ice overnight. Also statesOK to give insulin as ordered and zofran and reglan prn. Zofran given atstart of shift and Reglan given at 2245. Pts abdomen soft. Denies pain.Pt up at side of bed sitting and up to BR several times tonight. Biliarydrain flushed per order earlier.This note was completed by: Jennifer Webster RN [facility] NUTRITIONon 10-06-2017 NUTRITION HNO ID: [id number] thor: Alise Segura) BlayneaService: Nutrition TherapyAuthor Type: Registered DietitianType: NutritionFiled: 10/06/2017 10:01 AMNote Text:NUTRITION THERAPY REASSESSMENTSERVICE DATE: 10/06/2017SERVICE TIME: 9:36 AMRECOMMENDED MALNUTRITION DIAGNOSIS: SEVERE PROTEIN-CALORIE MALNUTRITIONIn the context of Chronic Illness or Injury based on:Unintentional Weight Loss: >5% in 1 monthInsufficient Energy Intake: Less than 75% energy intake compared toestimated needs for greater than or equal to 1 monthFluid Accumulation due to Malnutrition MildNUTRITION CARE PLAN:Problem, Etiology and Signs/Symptoms:Increased nutrient needs calories/protein related to catabolic illness asevidenced by s/p WhippleIntervention:Clear LiquidsTF to continue - Recommend to increase TF to 60 ml hr Impact Peptide 1.5= 2160 kcal and 135 gm protein - to better meet nutritional needsMonitor and Evaluation:Goal: Meet >75% of estimated needsMonitor fluid/electrolyte balanceMonitor labs, I/Os, vital signs, weightDischarge Nutrition Recommendations:To be determinedPer HPI: 62 year old male with history of HTN, DM, CAD s/p PCI, whounderwent a 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 09/30, who wasadmitted to the SICU for postoperative care. ROMINA amylase on POD 3 nml,removed.Interval History: nausea, emesis - 350 ml - 4/10 amPresent Diet Order: Clear Liquid and TFNutritional Intake: TF Impact Peptide 1.5 50 ml hr = 1800 kcal and 113 gmproteinGI symptoms: nausea, vomiting, anorexia and abdominal painAbdominal Exam: abdomen is distended and bowel sounds are hypoactiveIs the patient having any pain that is interfering with oral/enteralintake? Yes LOCATION: abdomenANTHROPOMETRICSHeight : 172.7 cm (5' 7.99 )Admission Weight: 81.1 kg (178 lb 12.7 oz)Current Weight: 88.8 kg (195 lb 12.3 oz)Body mass index is 29.77 kg/(m2). overweightWeight has decreased by 8 kg over 1.5 months representing 9% weightchange.Last Wt10/02/17 : 88.8 kg (195 lb 12.3 oz)09/24/17 : 79.8 kg (176 lb)09/15/17 : 81.2 kg (179 lb)08/17/17 : 87.1 kg (192 lb)Dosing Weight: 81 kgResting Metabolic Rate: 1599Estimated kilocalorie needs: 1932-8694 kilocalories determined by 20-25kcal/kgEstimated protein needs: 105-138 grams determined by 1.3-1.7 g/kg DosingweightEstimated fluid needs: 0206-8168 milliliters based on 1 mL per kcalNUTRITION FOCUSED PHYSICAL EXAM:Subcutaneous Fat LossOrbital ModerateTriceps ModerateMid-axillary at the iliac crest Unable to determine at this timeMuscle Loss Locations:Temporalis MildPectoralis MildDeltoids MildInterosseous No muscle lossLatissimus dorsi, trapezius Unable to determine at this timeQuadriceps ModerateGastrocnemius Unable to determine at this timePotential micronutrient deficiency revealed in: No deficiency identifiedEdema: Yes Lower extremities Mild 1+Ascites: NoAssessment of Functional Status: Unable to determine at this timeTemperature Max in 24 hours: Temp (24hrs), Av.8 ?C (98.3 ?F), Min:36.4?C (97.5 ?F), Max:37.1 ?C (98.8 ?F) BP 147/86 Pulse 90 Temp 37.1 ?C (98.7 ?F) (Oral) Resp 17 Ht 172.7cm (5' 7.99 ) Wt 88.8 kg (195 lb 12.3 oz) SpO2 96% BMI 29.77 kg/a9Zexzog Labs GLUC 208*BUN 16CREAT 0.54*NA 143K 4.3CHLOR 103CO2 24ALB 3.4*HB 10.0*HCT 31.3*WBC 7.03P 3.2MG 2.0Potential Signs of Inflammation: hyperglycemia, hypoalbuminemia andimaging studiesALLERGIESNo Known AllergiesCurrent Facility-Administered Medications:erythromycin ethyl succinate 200 mg oral liquid (E.E.S.) 200 mg ORAL wMEALS AND HSscopolamine 1 mg over 3 days 1 Patch (TRANSDERM-SCOP) 1 Patch TRANSDERMALq 72 HRfentaNYL 50 mcg/mL 25 mcg injection (SUBLIMAZE) 25 mcg INTRAVENOUS q 4 HPRNacetaminophen 650 mg CUP (TYLENOL) 650 mg ORAL q 6 HoxyCODONE 5 mg oral liquid (ROXICODONE) 5 mg ORAL q 4 H YKJfnqsma-yljkakts-hqmyfea 2 capsule cap(s) (CREON 24) 2 capsule ORAL TID wMEALSphenol 1 [place] (CHLORASEPTIC) 1 [place] MUCOUS MEMBRANE (TOPICAL MOUTH ANDTHROAT) q 2 H PRN0.9% NaCl 2-10 mL 2-10 mL INTRAVENOUS q 12 Hnaloxone 0.2 mg injection (NARCAN) 0.2 mg INTRAVENOUS PRNaspirin, enteric coated 162 mg tab(s) (ASPIRIN, ENTERIC COATED) 162 mgORAL DAILYnitroglycerin sublingual 0.4 mg tab(s) (NITROQUICK) 0.4 mg SUBLINGUAL q 5MIN PRNdextrose 40 % 15 g 15 g ORAL PRNOrglucagon 1 mg injection (GLUCAGEN) 1 mg INTRAMUSCULAR PRNOrdextrose 50% in water 25 mL syringe 12.5 g INTRAVENOUS PRNmagnesium sulfate in water 2 g in sterile water 50 ml 2 g INTRAVENOUSPRN(NO DISPENSE)insulin lispro injection (rapid acting) (HumaLOG) SUBCUTANEOUS q 6 Hheparin 5,000 Units injection 5,000 Units SUBCUTANEOUS q 12 Hmetoclopramide HCl 10 mg injection (REGLAN) 10 mg INTRAVENOUS q 6 H PRNIntake/Output 10/02/17 0700 - 10/03/17 0659 10/03/17 07 - 10/04/17 0659 432369 - 10/05/17 0659 10/05/17 0700 - 10/06/17 0659 10/06/17 0700 -10/07/17 0659 Intake (ml) 591 2415 2778 1113 5 Output (ml) 3646 1865 3425 4300 200 Net (ml) -3055 550 -647 -3187 -195Surgical Incision 09/30/17 0940 Abdomen (Active)Dressing Status None: Open to Air 10/06/2017 8:30 AMFrequency of Dressing Change Other: See Comment 10/01/2017 8:00 PMDressing /Treatment Type Dry Cover Dressing;Dry Sterile Dressing 10/01/20178:00 PMIncision Closures Topical Skin Adhesive 10/06/2017 8:30 AMDrainage Description None 10/06/2017 8:30 AMDrainage Amount None 10/06/2017 8:30 AMEdges Intact 10/06/2017 8:30 AMHematoma No 10/06/2017 8:30 AMNumber of days:6MNT Billing Type: Re-assess/15 min 4 unitsSIGNATURE: Alise Lopez RD, LD PATIENT NAME: Rocio FrischDATE: October 06, 2017 : 9:36 AM PAGER: For further assistance and weekends please page theGroup Pager -[phone] [facility] PROGRESSon 10-06-2017 PROGRESS HNO ID: [id number] thor: Michael Cedillo) AugustinService: General SurgeryAuthor Type: PhysicianType: Progress NotesFiled: 10/06/2017 6:29 PMNote Text:SURGICAL SERVICES PROGRESS NOTENAME: Rocio JacksonMRN: [id number]: 10/06/2017Time: 10:09 JUDIE DATE: 09/30/20175 Days Post-OpProcedure(s) (LRB):LAPAROSCOPY DIAGNOSTIC (N/A)WHIPPLE PROCEDURE, WITH PANCREATOJEJUNOST (N/A)Hospital Day: 6Active Problems: Severe protein-calorie malnutrition (HCC) Duodenal cancer (HCC)Resolved Problems: * No resolved hospital problems. *ASSESSMENT AND PLAN: Rocio Jackson is a 62 year old male with history ofHTN, DM, CAD s/p PCI, who underwent a classic whipple for an obstructingduodenal mass 09/30, who was admitted to the SICU for postoperative care. JPamylase on POD 3 nml, removed. Transferred to [facility]?Large volume of emesis past 24 hours that is bilious in nature consistentwith delayed gastric emptying s/p whipple. Tolerating TFs. KUB orderedthis am showing no dilation of the stomach or evidence of ileus/SBO.Otherwise afebrile without leukocytosis and HDS- OOB as tolerated- BPH, IS, wean supplemental O2- Sips as tolerated- Continue tube feeds, severe protein-calorie malnutrition- Continue creon; IV reglan prn for nausea and erythromycin 200mg ac/hsfor DGE- IPCs, SQH- Continue care on [facility]; will begin disposition planning todaySubjective:AFVSSBilious emesis overnight (2L past 24 hours)No evidence of TF in emesis per nursingBM x4 recordedPHYSICAL EXAM:GENERAL: no acute distressABDOMEN: soft, nontender, mildly distended. Incision c/d/i. [place] drainingyellow-red urine.BP 147/86 Pulse 90 Temp 37.1 ?C (98.7 ?F) (Oral) Resp 17 Ht 172.7cm (5' 7.99 ) Wt 88.8 kg (195 lb 12.3 oz) SpO2 96% BMI 29.77 kg/m8Clsfkq/Output Summary (Last 24 hours) at 10/06/17 1008Last data filed at 10/06/17 0830 Gross per 24 hourIntake 1113 mlOutput 3750 mlNet -2637 mlDIAGNOSTIC STUDIES:CBC, BMP, MG, PHOSRecent Labs 10/06/1803WBC 7.03 5.61 4.20 5.92HB 10.0* 10.2* 8.7* 9.5*HCT 31.3* 32.0* 27.0* 29.4*PLT 358 314 246 225NA 143 142 139 140K 4.3 4.6 4.0 4.1CHLOR 103 103 103 105CO2 24 27 25 24BUN 16 14 16 18CREAT 0.54* 0.56* 0.54* 0.55*GLUC 208* 172* 146* 138*CA 9.2 8.9 8.1* 8.3*MG 2.0 2.1 1.8 1.8P 3.2 3.6 3.5 3.1Liver Function, Amylase, AND LipaseRecent Labs 10/06/1803TPROT 7.3 6.5 5.6* 5.7* < > 5.8*ALB 3.4* 3.3* 2.3* 2.5* < > 3.1*ALT 28 27 23 25 < > 46AST 23 23 19 20 < > 48*ALKPHOS 108 107 83 72 < > 91TBILI 0.2 0.2 0.2 0.2 < > 0.5LACT -- -- -- -- -- 2.3*< > = values in this interval not displayed.CoagsRecent Labs 09/24/18085APTT 25.9 24.9 -- -- 39.8* 31.6INR 1.2 1.1 1.0 2.0* 2.0* 1.5*Imaging:KUB (10/05/17):IMPRESSION:No dilated loops of bowel. ?Postsurgical changes.Salvador Birmingham MDResident General Surgery Normal [facility] Phosphoruson 10-06-2017 Phosphate 3.2 mg/dL Normal 2.5-4.5 [facility] Comment on above: Performed By: #### P T, PTT, AMYL, CMP, LIPA, PHOS ####[facility] [place], [place] [phone]#### TRANSF ####[facility] [place], [place] [phone] XR ABDOMEN 1V SPECIFYon 09-27 XR ABDOMEN 1V SPECIFY * * *Final Report* * *DATE OF EXAM: Oct 06 2017 6:42AM FVX [id number] - XR ABDOMEN 1V SPECIFY / REASON: Nausea * * * * Physician Interpretation * * * * EXAMINATION: Abdomen 1 viewCLINICAL HISTORY: NauseaTechnique: Abdomen 1 view -- NOT APPLICABLE with 1 views on 1 imagesComparison: 08/14/2017RESULT:A drainage catheter overlies the right upper quadrant. Surgical clips overlying the right upper quadrant compatible with prior cholecystectomy. There is a new tube which likely represents a feeding tube coiled in the left upper quadrant and extending to the midline lower abdomen. No definite evidence of free intraperitoneal air. There are no dilated loops of bowel. An additional tube overlying the midline upper abdomen indeterminate etiology.IMPRESSION:No dilated loops of bowel. Postsurgical changes.Ergonomic Specialist: NII Transcribe Date/Time: Oct 06 2017 6:41ADictated by : MELCHOR OSBORN MDThis examination was interpreted and the report reviewed and electronically signed by: MELCHOR OSBORN MD on Oct 06 2017 6:45AM [id number] Normal [facility] CBC and Differentialon 10-05 Abs Baso <0.03 Normal <0.11 [facility] Comment on above: Performed By: #### P T, PTT, AMYL, CMP, LIPA, PHOS ####[place] [address]#### TRANSF ####[place] [phone] Abs [place] 0.47 k/uL Normal <0.87 [facility] Comment on above: Performed By: #### P T, PTT, AMYL, CMP, LIPA, PHOS ####[place] [address]#### TRANSF ####[place] [phone] Abs Neut 3.08 k/uL Normal 1.45-7.50 [facility] Comment on above: Performed By: #### P T, PTT, AMYL, CMP, LIPA, PHOS ####[place] [address]#### TRANSF ####[place] [phone] Basophils/100 WBC Auto (Bld) 0.2 % Normal [facility] Comment on above: Performed By: #### P T, PTT, AMYL, CMP, LIPA, PHOS ####[place] [address]#### TRANSF ####[place] [phone] DTYPE Auto Diff Normal [facility] Comment on above: Performed By: #### P T, PTT, AMYL, CMP, LIPA, PHOS ####[place] [address]#### TRANSF ####[place] [phone] Eosinophils 0.23 10*3/uL Normal <0.46 [facility] Comment on above: Performed By: #### P T, PTT, AMYL, CMP, LIPA, PHOS ####[place] [address]#### TRANSF ####[place] [phone] Eosinophils/100 leukocytes 4.1 % Normal [facility] Comment on above: Performed By: #### P T, PTT, AMYL, CMP, LIPA, PHOS ####[place] [address]#### TRANSF ####[place] [phone] Erythrocyte distribution width Auto Ratio (RBC) 16.3 % High 11.5-15.0 [facility] Comment on above: Performed By: #### P T, PTT, AMYL, CMP, LIPA, PHOS ####[place] [address]#### TRANSF ####[place] [phone] Erythrocytes (RBC) 4.00 10*6/uL Low 4.20-6.00 [facility] Comment on above: Performed By: #### P T, PTT, AMYL, CMP, LIPA, PHOS ####[place] [address]#### TRANSF ####[place] [phone] Hematocrit (HCT) 32.0 % Low 39.0-51.0 [facility] Comment on above: Performed By: #### P T, PTT, AMYL, CMP, LIPA, PHOS ####[place] [address]#### TRANSF ####[place] [phone] Hemoglobin mass conc (Bld) 10.2 g/dL Low 13.0-17.0 [facility] Comment on above: Performed By: #### P T, PTT, AMYL, CMP, LIPA, PHOS ####[place] [address]#### TRANSF ####[place] [phone] Lymphocytes 1.82 10*3/uL Normal 1.00-4.00 [facility] Comment on above: Performed By: #### P T, PTT, AMYL, CMP, LIPA, PHOS ####[address]#### TRANSF ####[place] [phone] Lymphocytes/100 leukocytes 32.4 % Normal [facility] Comment on above: Performed By: #### P T, PTT, AMYL, CMP, LIPA, PHOS ####[place] [address]#### TRANSF ####[place] [phone] MCH 25.5 pG Low 26.0-34.0 [facility] Comment on above: Performed By: #### P T, PTT, AMYL, CMP, LIPA, PHOS ####[place] [phone]#### TRANSF ####[place] [phone] MCHC mass conc (RBC) 31.9 g/dL Normal 30.5-36.0 [facility] Comment on above: Performed By: #### P T, PTT, AMYL, CMP, LIPA, PHOS ####[place] [phone]#### TRANSF ####[place] [phone] MCV 80.0 fL Normal 80.0-100.0 [facility] Comment on above: Performed By: #### P T, PTT, AMYL, CMP, LIPA, PHOS ####[place] [address]#### TRANSF ####[place] [address] [address] [place] [phone] Monocytes/100 leukocytes 8.4 % Normal [facility] Comment on above: Performed By: #### P T, PTT, AMYL, CMP, LIPA, PHOS ####[place] [address]#### TRANSF ####[place] [address] [address] [place] [phone] Neutrophils/100 WBC Auto (Bld) 54.9 % Normal [facility] Comment on above: Performed By: #### P T, PTT, AMYL, CMP, LIPA, PHOS ####[place] [address]#### TRANSF ####[address] [place] [phone] Platelet mean volume (PMV) 9.3 fL Normal 9.0-12.7 [facility] Comment on above: Performed By: #### P T, PTT, AMYL, CMP, LIPA, PHOS ####[place] [address]#### TRANSF ####[address] AvAnne [place] [phone] Platelets 314 10*3/uL Normal 150-400 [facility] Comment on above: Performed By: #### P T, PTT, AMYL, CMP, LIPA, PHOS ####[place] [address]#### TRANSF ####[place] [address] [address] [place] [phone] WBC (Leukocytes) 5.61 10*3/uL Normal 3.70-11.00 [facility] Comment on above: Performed By: #### P T, PTT, AMYL, CMP, LIPA, PHOS ####[facility] [place], [place] [phone]#### TRANSF ####[facility] [address] [place], [place] [phone] CONSULTon 10-05-2017 CONSULT HNO ID: [id number] thor: Damaris Rojasice: EndocrinologyAuthor Type: PhysicianType: ConsultsFiled: 10/05/2017 6:01 PMNote Text:ENDOCRINOLOGY INITIAL CONSULTPATIENT NAME: Rocio JacksonMRN: [id number] DATE: 10/05/2017SERVICE TIME: 5:01 PMREASON FOR CONSULT: DM Type 2REQUESTING PHYSICIAN:Michael Jolley [place] PHYSICIAN: Adriane Nichols, DOSubjectiveHISTORY OF PRESENT ILLNESS: Mr. Jackson is a 62 year old male presentingas a new patient to me regarding DM Type 2. PMH of Type 2 DM, HTN, CADs/p PCI. The patient presented with nausea, emesis, and an unintentionalweight loss of over 20 lbs. He underwent classic Whipple surgery 09/30/2017for obstructing duodenal mass by Dr. Jolley. He is receiving enteralnutrition since 10/01/2017. He is requiring up to 4 units of SSI insulindaily with BG in the 120-230 mg/dL range. He was transfused with pRBC on10/02/2017 so obtaining a HbA1c now will not be helpful. He was initiallydiagnosed with diabetes 1- 2 years ago. He does not have a known familyhistory of diabetes mellitus. The patient has no known microvascularcomplications of diabetes. Rocio reports the following diabeticmacrovascular complications: CAD s/p PCI. Patient sees primary caredoctor for DM management in [facility]. He was on oral agentssaxagliptin 5 mg daily and metformin 1000 mg twice daily with meals. Thepatient was not glucose monitoring at home. He thinks his HbA1c was inthe 6% range. Regarding symptoms of hyperglycemia, he is not experiencingany symptoms such as polyuria, polydipsia, nocturia or blurry vision.Patient is currently receiving tube feeds Impact Peptide 1.5 at goal rateof 50 mL per hour. He is feeling nauseated and had emesis yesterday andtoday. The patient is having difficulty swallowing pills. He is writtenfor full liquid diet but not tolerating much.PAST MEDICAL HISTORYDiagnosis Date- Bleeding ulcer 11/15/2016 required 5 blood transfusions- Diabetes mellitus (HCC) 2017- Glaucoma- Hypertension- Myocardial infarction (HCC) 05/15/2011PAST SURGICAL HISTORYProcedure Laterality Date- ANGIOPLASTY HX 05/15/2011 2 stents s/p MD;[facility]- CHOLECYSTECTOMY 08/11/2017 [facility]- PICC LINE INSERT/CONSULT 08/16/2017No family history on file.Social HistorySubstance Use Topics- Smoking status: Former Smoker Types: Cigarettes Quit date: 2010- Smokeless tobacco: Never Used- Alcohol use 1.5 oz/week 1 Cans of Beer (12oz) per week Comment: occasional beerCURRENT MEDICATION:Current Facility-Administered Medications:fentaNYL 50 mcg/mL 25 mcg injection (SUBLIMAZE) 25 mcg INTRAVENOUS q 4 HPRN Allegra S (Pa) Miglionicoacetaminophen 650 mg CUP (TYLENOL) 650 mg ORAL q 6 H Allegra S (Pa)Miglionico 650 mg at 10/05/17 1549oxyCODONE 5 mg oral liquid (ROXICODONE) 5 mg ORAL q 4 H PRN Yrn Cedillo)Gonzalo 5 mg at 10/05/17 5025sslugn-cnxqkaqa-snhtaww 2 capsule cap(s) (CREON 24) 2 capsule ORAL TID EALMilly Pruett (Res) MD Jane 2 capsule at 10/04/17 1740phenol 1 [place] (CHLORASEPTIC) 1 [place] MUCOUS MEMBRANE (TOPICAL MOUTH ANDTHROAT) q 2 H PRN Kolby (Res) Kevin 1 [place] at 10/02/17 59864.9% NaCl 2-10 mL 2-10 mL INTRAVENOUS q 12 H Mundo (Georges)(Hist) Sideris5 mL at 10/05/17 0805naloxone 0.2 mg injection (NARCAN) 0.2 mg INTRAVENOUS PRN Yrn Cedillo)Bhatnagaraspirin, enteric coated 162 mg tab(s) (ASPIRIN, ENTERIC COATED) 162 mgORAL DAILY Mundo (Res)(Hist) Sideris 162 mg at 10/03/17 0828nitroglycerin sublingual 0.4 mg tab(s) (NITROQUICK) 0.4 mg SUBLINGUAL q 5MIN PRN Antonios (Res)(Hist) Siderisdextrose 40 % 15 g 15 g ORAL PRN Antonios (Res)(Hist) SiderisOrglucagon 1 mg injection (GLUCAGEN) 1 mg INTRAMUSCULAR PRN Antonios(Res)(Hist) SiderisOrdextrose 50% in water 25 mL syringe 12.5 g INTRAVENOUS PRN Antonios(Res)(Hist) Siderismagnesium sulfate in water 2 g in sterile water 50 ml 2 g INTRAVENOUSPRN(NO DISPENSE) Antonios (Res)(Hist) Siderisondansetron (PF) 4 mg injection (ZOFRAN) 4 mg INTRAVENOUS q 6 H PRNAntonios (Res)(Hist) Sideris 4 mg at 10/05/17 1054insulin lispro injection (rapid acting) (HumaLOG) SUBCUTANEOUS q 6 HAntonios (Res)(Hist) Sideris 1 Units at 10/05/17 1213heparin 5,000 Units injection 5,000 Units SUBCUTANEOUS q 12 H Antonios(Res)(Hist) Sideris 5,000 Units at 10/05/17 0805metoclopramide HCl 10 mg injection (REGLAN) 10 mg INTRAVENOUS q 6 H PRNAntonios (Res)(Hist) Sideris 10 mg at 10/05/17 1142Allergies As of Date: 09/16/2017(No Known Allergies)Fully Assessed 09/15/2017General: no fever, chills, but has lost over 20 lbs recently.Skin: no rashes, pruritus but has dry skin and had jaundiceEyes: no blurred or double vision or eye painCardiac: denies chest pain, heart palpitations or orthopneaPulmonary: denies wheezing, productive cough or dyspneaGI: admits nausea, vomiting and postoperative abdominal painNeuro: denies numbness/tingling in hands or feet and denies seizuresMusc: denies history of upper or lower extremity weaknessEndocrine: denies polyuria, polydipsia, nocturia, blurry vision but hasexcessive fatigueHematology: Positive for anemia.ObjectivePHYSICAL EXAM:BP 149/77 Pulse 79 Temp 36.4 ?C (97.5 ?F) (Oral) Resp 17 Ht 172.7 cm(5' 7.99 ) Wt 88.8 kg (195 lb 12.3 oz) SpO2 96% BMI 29.77 kg/r5Tfyrdkt: Fatigued appearing, alert, in no acute distress, well-hydrated,well nourished.Skin: skin color is pale.Eyes: Anicteric sclera. Pupils are equally round. Extraocular movementsare intact.Oropharynx: Lips, mucosa, and tongue normal, moist mucous membranes.Neck: SuppleHeart: RRRLungs: CTABExtremities: no edema, no foot ulcers present.DATA:Diagnostic tests reviewed for today's visit:Most recent labsComponent Latest Ref Rng AND Units 09/30/2017 10/01/2017 10/02/201710/05/2017 6:05 PM 3:26 AM 3:30 AM 6:00 AM 6:40 AM 4:46 AMProtein, Total 6.0 - 8.4 g/dL 5.8 (L) 5.1 (L) 5.3 (L) 5.7 (L) 5.6 (L) 6.5Albumin 3.5 - 5.0 g/dL 3.1 (L) 2.6 (L) 2.5 (L) 2.5 (L) 2.3 (L) 3.3 (L)Calcium 8.5 - 10.5 mg/dL 7.8 (L) 7.7 (L) 8.3 (L) 8.3 (L) 8.1 (L) 8.9Bilirubin, Total 0.0 - 1.5 mg/dL 0.5 0.3 0.3 0.2 0.2 0.2Alkaline Phosphatase 40 - 150 U/L 91 70 68 72 83 107AST 7 - 40 U/L 48 (H) 32 23 20 19 23Glucose 65 - 100 mg/dL 157 (H) 145 (H) 154 (H) 138 (H) 146 (H) 172 (H)BUN 10 - 25 mg/dL 18 20 22 18 16 14Creatinine 0.70 - 1.40 mg/dL 0.65 (L) 0.78 0.64 (L) 0.55 (L) 0.54 (L) 0.56(L)Sodium 135 - 146 mmol/L 140 140 135 140 139 142Potassium 3.5 - 5.0 mmol/L 4.9 4.8 4.2 4.1 4.0 4.6Chloride 98 - 110 mmol/L 105 105 103 105 103 103CO2 23 - 32 mmol/L 24 23 26 24 25 27Anion Gap 9 - 18 mmol/L 11 12 6 (L) 11 11 12ALT 5 - 50 U/L 46 35 27 25 23 27eGFR- >60 >60 >60 >60 >60 >60 >60eGFR-All Other Races >60 . >60 >60 >60 >60 >60 >60Component Glucose, Point of Care InsulinLatest Ref Rng AND Units 74 - 99 mg/dL09/30/2017 8:40 AM 126 (A)09/30/2017 5:21 PM 121 (A)09/30/2017 11:43 PM 152 (A)10/01/2017 5:33 AM 137 (A) Trickle feeds started10/01/2017 12:24 PM 137 (A)10/01/2017 6:39 PM 120 (A)10/01/2017 11:48 PM 122 (A) H110/02/2017 5:53 AM 147 (A)10/02/2017 11:40 AM 176 (A) 10/12/2017 6:11 PM 150 (A)10/03/2017 1:35 AM 129 (A)10/03/2017 6:24 AM 144 (A)10/03/2017 12:05 PM 230 (A) 19/01/2018 5:34 PM 203 (A) H210/03/2017 11:57 PM 133 (A)10/04/2017 6:32 AM 153 (A) H110/04/2017 11:59 AM 183 (A) 09/02/2018 5:21 PM 158 (A) 09/02/2018 11:12 PM 149 (A)10/05/2017 5:35 AM 176 (A) 12/03/2018 12:04 PM 184 (A) H1 5:29 PM 206 (A)Impression/Recommendation s62 year old male presenting with weight loss and emesis who underwentclassic Whipple surgery 09/30/2017 for obstructing duodenal mass by . Hx of well controlled DM Type 2 dx 1-2 years ago on oralhypoglycemics saxagliptin and metformin and CAD s/p PCI in 2010.Endocrine consult for glycemic management in the setting of enteralnutrition since 10/01/2017. The patient is requiring up to 4 units of SSIinsulin daily with BG in the 120-230 mg/dL range. He has difficultyswallowing pills. He is having nausea and emesis today. He wastransfused with pRBC on 10/02/2017 so obtaining a HbA1c now will not behelpful.-start basal insulin Lantus 5 units at bedtime - insulin should be held iftube feeds are held or discontinued-continue SSI#1 given every 6 hours-clear liquid diet-glucose monitoring every 6 hoursASHLEY SyedIGNATURE: Damaris Aguilar, MDDATE: October 05, 2017TIME: 5:01 PM Normal [facility] Comp Metabolic Panelon 10-05 Alanine aminotransferase (ALT) 27 U/L Normal 5-50 [facility] Comment on above: Performed By: #### P T, PTT, AMYL, CMP, LIPA, PHOS ####[place] [phone]#### TRANSF ####[phone] Albumin 3.3 g/dL Low 3.5-5.0 [facility] Comment on above: Result Comment: Revi ewed Performed By: #### P T, PTT, AMYL, CMP, LIPA, PHOS ####[place] [phone]#### TRANSF ####[phone] Alkaline phosphatase (ALP) 107 U/L Normal 40-150 [facility] Comment on above: Performed By: #### P T, PTT, AMYL, CMP, LIPA, PHOS ####[place] [phone]#### TRANSF ####[place] [phone] Anion gap 12 mmol/L Normal 9-18 [facility] Comment on above: Performed By: #### P T, PTT, AMYL, CMP, LIPA, PHOS ####[place] [address]#### TRANSF ####[place] [phone] Aspartate aminotransferase (AST) 23 U/L Normal 7-40 [facility] Comment on above: Performed By: #### P T, PTT, AMYL, CMP, LIPA, PHOS ####[place] [address]#### TRANSF ####[place] [phone] Bilirubin (total) 0.2 mg/dL Normal 0.0-1.5 [facility] Comment on above: Performed By: #### P T, PTT, AMYL, CMP, LIPA, PHOS ####[place] [address]#### TRANSF ####[place] [phone] Calcium 8.9 mg/dL Normal 8.5-10.5 [facility] Comment on above: Performed By: #### P T, PTT, AMYL, CMP, LIPA, PHOS ####[place] [address]#### TRANSF ####[place] [phone] Chloride 103 mmol/L Normal 98-110 [facility] Comment on above: Performed By: #### P T, PTT, AMYL, CMP, LIPA, PHOS ####[place] [address]#### TRANSF ####[place] [address] [phone] CO2 27 mmol/L Normal 23-32 [facility] Comment on above: Performed By: #### P T, PTT, AMYL, CMP, LIPA, PHOS ####[place] [phone]#### TRANSF ####[place] [phone] Creatinine 0.56 mg/dL Low 0.70-1.40 [facility] Comment on above: Performed By: #### P T, PTT, AMYL, CMP, LIPA, PHOS ####[place] [phone]#### TRANSF ####[place] [phone] eGFR (non-black) mL/min/{1.73_m2} Normal >60 [facility] Comment on above: Performed By: #### P T, PTT, AMYL, CMP, LIPA, PHOS ####[place] [phone]#### TRANSF ####[place] [phone] Glucose mass conc 172 mg/dL High 65-100 [facility] Comment on above: Performed By: #### P T, PTT, AMYL, CMP, LIPA, PHOS ####[place] [phone]#### TRANSF ####[place] [phone] Potassium molar conc 4.6 mmol/L Normal 3.5-5.0 [facility] Comment on above: Performed By: #### P T, PTT, AMYL, CMP, LIPA, PHOS ####[place] [phone]#### TRANSF ####[place] [phone] Protein 6.5 g/dL Normal 6.0-8.4 [facility] Comment on above: Performed By: #### P T, PTT, AMYL, CMP, LIPA, PHOS ####[place] [address]#### TRANSF ####[place] [phone] Sodium 142 mmol/L Normal 135-146 [facility] Comment on above: Performed By: #### P T, PTT, AMYL, CMP, LIPA, PHOS ####[place] [address]#### TRANSF ####[place] [phone] Urea nitrogen 14 mg/dL Normal 10-25 [facility] Comment on above: Performed By: #### P T, PTT, AMYL, CMP, LIPA, PHOS ####[place] [address]#### TRANSF ####[place] [phone] Magnesiumon 10-05-2017 Magnesium 2.1 mg/dL Normal 1.7-2.6 [facility] Comment on above: Performed By: #### P T, PTT, AMYL, CMP, LIPA, PHOS ####[place] [address]#### TRANSF ####[place] [phone] NURSING PROGon 10-05-2017 NURSING PROG HNO ID: [id number] thor: Saima Kramer (Rn) Debra, RNService: (none)Author Type: Registered NurseType: Nursing Progress NoteFiled: 10/05/2017 3:52 PMNote Text: Nursing Progress NotePatient Name: Rocio Boudreaux: [id number] Location: [place] [id number] ____Daily Note:Pt sitting on edge of bed and is nauseous. Had 400cc of bileemesis. Cold wash cloth applied to forehead. Pt refusing to take any pillsat this time. SAIMA Dinh made aware that pt was unable to take pills.Will cont to monitor.1445: Pt sitting on side of bed. States he still feels nauseous but ismuch improved since earlier. Lungs diminished in the bases - encourageduse of incentive spirometer. Abdomen soft and tender around surgicalincision. Bowel sounds hypoactive. Bilateral extremity 1+ edema noted andnonpitting edema on bilateral hands.1540: PRN morphine administered for 7/10 abdominal pain. Pt got sick tostomach and vomited a short while after med was given. This is the secondtime today after morphine was given that the pt vomited. Text page SAIMA Shabazz to make aware.This note was completed by: Saima Richardson RN [facility] PROGRESSon 10-05-2017 PROGRESS HNO ID: [id number] thor: Michael Cedillo) AugustinService: General SurgeryAuthor Type: PhysicianType: Progress NotesFiled: 10/05/2017 6:45 PMNote Text:SURGICAL SERVICES PROGRESS NOTENAME: Rocio Boudreaux: [id number]: 10/05/2017Time: 7:15 JUDIE DATE: 09/30/20175 Days Post-OpProcedure(s) (LRB):LAPAROSCOPY DIAGNOSTIC (N/A)WHIPPLE PROCEDURE, WITH PANCREATOJEJUNOST (N/A)Hospital Day: 6Active Problems: Severe protein-calorie malnutrition (HCC) Duodenal cancer (HCC)Resolved Problems: * No resolved hospital problems. *ASSESSMENT AND PLAN: Rocio Jackson is a 62 year old male with history ofHTN, DM, CAD s/p PCI, who underwent a classic whipple for an obstructingduodenal mass 09/30, who was admitted to the SICU for postoperative care. JPamylase on POD 3 nml, removed.?Well this morning on examination. Did have an emesis overnight, butimproved nausea this morning. Abdo soft, appropriately tender, incisionCDI. Stay up and walking.- OOB as tolerated- BPH, IS, wean supplemental O2 as tolerated- continue to FLD- tube feeds, severe protein-calorie malnutrition- IPCs, SQH- continue care on RNFPHYSICAL EXAM:GENERAL: no acute distressABDOMEN: soft, nontender, mildly distended. Incision c/d/i. [place] drainingyellow-red urine.BP 158/89 Pulse 83 Temp 36.9 ?C (98.4 ?F) (Oral) Resp 16 Ht 172.7cm (5' 7.99 ) Wt 88.8 kg (195 lb 12.3 oz) SpO2 96% BMI 29.77 kg/m2Date 10/04/17 07 - 10/05/17 0659 10/05/17 07 - 10/06/17 0659Shift 2653-2740 6289-9863 3916-2229 24 Hour Total 2008-8854 2003-10774211-7047 24 Hour TotalINTAKE PO 770 6135 086 0431 PO 845 671 3100 Tube Feed Intake (GI Feed/Drain 09/30/17 Small Bore Feeding Right Naris10 Fr) 240 072 141 3660 Irrigants 5 115 180 300 Irrigant/Flush Amount In (Drain/Tube [facility] 5 5 10 Irrigant/Flush Amount In (GI Feed/Drain 09/30/17 Small Bore FeedingRight Naris 10 Fr) 110 180 290 Shift Total 775 1285 718 2778OUTPUT Urine 818 399 7171 3075 Void (ml) 525 1850 2375 Tube Output ([REMOVED] Indwelling Urinary Catheter 09/30/17 0909Foley 16 Fr 10/04/17 1251) 700 700 Emesis 50 300 350 Emesis (ml) 50 300 350 Tubes 0 0 0 Drain/Tube Output (Drain/Tube 08/27/17 [facility] RightUpper Quadrant Abdomen Drain #3) 0 0 0 # of BMs Number of BMs 3 x 1 x 1 x 5 x Shift Total 908 673 0863 3425Weight (kg) 88.8 88.8 88.8 88.8 88.8 88.8 88.8 88.8DIAGNOSTIC STUDIES:CBC:Hemoglobin (g/dL)Date Value10/05/2017 10.2 Hematocrit (%)Date Value10/05/2017 32.0 WBC (k/uL)Date Value10/05/2017 5.61 Platelet Count (k/uL)Date Value10/05/2017 314 CMP:BMP:Glucose 172 10/05/2017BUN 14 10/05/2017Creatinine 0.56 10/05/2017Sodium 142 10/05/2017Potassium 4.6 10/05/2017Chloride 103 10/05/2017CO2 27 10/05/2017Protein, Total 6.5 10/05/2017Albumin 3.3 10/05/2017Calcium 8.9 10/05/2017Alkaline Phosphatase 107 10/05/2017Bilirubin, Total 0.2 10/05/2017AST 23 10/05/2017ALT 27 10/05/2017Harmony Rodriguez [facility] II general surgeryPager [phone] - [facility] pagerPager [phone] - PersonalSTAFF NOTEI have independently seen and examined the patient today. I haveindependently reviewed all the imaging and the labs. I agree with keycomponents of the resident's note above. Care plan and decision making hasbeen discussed.Doing well, continued DGETolerating tube feedsClearsToms Froilan MD, MPH, FACSGeneral/Trauma/HPB SurgeryPager: [phone] Cell: [phone] 2017 Normal [facility] Phosphoruson 10-05-2017 Phosphate 3.6 mg/dL Normal 2.5-4.5 [facility] Comment on above: Performed By: #### P T, PTT, AMYL, CMP, LIPA, PHOS ####[facility] [place], [place] [phone]#### TRANSF ####[phone] CBC and Differentialon 10-04 Abs Baso <0.03 Normal <0.11 [facility] Comment on above: Performed By: #### P T, PTT, AMYL, CMP, LIPA, PHOS ####[place] [address]#### TRANSF ####[place] [phone] Abs [place] 0.32 k/uL Normal <0.87 [facility] Comment on above: Performed By: #### P T, PTT, AMYL, CMP, LIPA, PHOS ####[place] [address]#### TRANSF ####[place] [phone] Abs Neut 2.35 k/uL Normal 1.45-7.50 [facility] Comment on above: Performed By: #### P T, PTT, AMYL, CMP, LIPA, PHOS ####[place] [address]#### TRANSF ####[place] [phone] Basophils/100 WBC Auto (Bld) 0.2 % Normal [facility] Comment on above: Performed By: #### P T, PTT, AMYL, CMP, LIPA, PHOS ####[place] [address]#### TRANSF ####[place] [phone] DTYPE Auto Diff Normal [facility] Comment on above: Performed By: #### P T, PTT, AMYL, CMP, LIPA, PHOS ####[place] [address]#### TRANSF ####[place] [phone] Eosinophils 0.25 10*3/uL Normal <0.46 [facility] Comment on above: Performed By: #### P T, PTT, AMYL, CMP, LIPA, PHOS ####[place] [address]#### TRANSF ####[place] [phone] Eosinophils/100 leukocytes 6.0 % Normal [facility] Comment on above: Performed By: #### P T, PTT, AMYL, CMP, LIPA, PHOS ####[place] [address]#### TRANSF ####[place] [phone] Erythrocyte distribution width Auto Ratio (RBC) 16.3 % High 11.5-15.0 [facility] Comment on above: Performed By: #### P T, PTT, AMYL, CMP, LIPA, PHOS ####[place] [address]#### TRANSF ####[place] [phone] Erythrocytes (RBC) 3.42 10*6/uL Low 4.20-6.00 [facility] Comment on above: Performed By: #### P T, PTT, AMYL, CMP, LIPA, PHOS ####[place] [address]#### TRANSF ####[place] [phone] Hematocrit (HCT) 27.0 % Low 39.0-51.0 [facility] Comment on above: Performed By: #### P T, PTT, AMYL, CMP, LIPA, PHOS ####[place] [address]#### TRANSF ####[place] [phone] Hemoglobin mass conc (Bld) 8.7 g/dL Low 13.0-17.0 [facility] Comment on above: Performed By: #### P T, PTT, AMYL, CMP, LIPA, PHOS ####[place] [address]#### TRANSF ####[place] [phone] Lymphocytes 1.27 10*3/uL Normal 1.00-4.00 [facility] Comment on above: Performed By: #### P T, PTT, AMYL, CMP, LIPA, PHOS ####[place] [address]#### TRANSF ####[place] [address] Lymphocytes/100 leukocytes 30.2 % Normal [facility] Comment on above: Performed By: #### P T, PTT, AMYL, CMP, LIPA, PHOS ####[place] [address]#### TRANSF ####[place] [phone] MCH 25.4 pG Low 26.0-34.0 [facility] Comment on above: Performed By: #### P T, PTT, AMYL, CMP, LIPA, PHOS ####[place] [address]#### TRANSF ####[place] [phone] MCHC mass conc (RBC) 32.2 g/dL Normal 30.5-36.0 [facility] Comment on above: Performed By: #### P T, PTT, AMYL, CMP, LIPA, PHOS ####[place] [address]#### TRANSF ####[place] [phone] MCV 78.9 fL Low 80.0-100.0 [facility] Comment on above: Performed By: #### P T, PTT, AMYL, CMP, LIPA, PHOS ####[place] [address]#### TRANSF ####[phone] Monocytes/100 leukocytes 7.6 % Normal [facility] Comment on above: Performed By: #### P T, PTT, AMYL, CMP, LIPA, PHOS ####[place] [address]#### TRANSF ####[place] [phone] Neutrophils/100 WBC Auto (Bld) 56.0 % Normal [facility] Comment on above: Performed By: #### P T, PTT, AMYL, CMP, LIPA, PHOS ####[place] [address]#### TRANSF ####[place] [phone] Platelet mean volume (PMV) 9.2 fL Normal 9.0-12.7 [facility] Comment on above: Performed By: #### P T, PTT, AMYL, CMP, LIPA, PHOS ####[place] [address]#### TRANSF ####[place] [phone] Platelets 246 10*3/uL Normal 150-400 [facility] Comment on above: Performed By: #### P T, PTT, AMYL, CMP, LIPA, PHOS ####[facility] [place], [place] [phone]#### TRANSF ####[facility] [place], [place] [phone] WBC (Leukocytes) 4.20 10*3/uL Normal 3.70-11.00 [facility] Comment on above: Performed By: #### P T, PTT, AMYL, CMP, LIPA, PHOS ####[facility] [place], [place] [phone]#### TRANSF ####[facility] [place], [place] [phone] CONSULT PROGon 10-04-2017 CONSULT PROG HNO ID: [id number] thor: Brock Yao: Pain ManagementAuthor Type: Physician AssistantType: Consult Progress NoteFiled: 10/04/2017 8:53 AMNote Text:PERIPHERAL NERVE CATHETER PROGRESS NOTEPATIENT NAME: Rocio JacksonMRN: [id number] DATE: 10/04/2017SERVICE TIME: 8:36 AMPRIMARY SERVICE:?General Surgery??ASSESSMENT : Rocio Jackson is a 62 year old male with hx of DM, HTN, CAD,s/p PCI with stent placement, PSH of cholecystectomy, who is now POD# 4s/p?Whipple procedure for duodenal mass with distal duodenal distortion.T9-10?Epidural placed to aid in post op pain control.??Epidural?site without signs or symptoms of infection, no erythema,tenderness, drainage, or warmth.No nausea or vomiting.Pain adequately controlled 10.?Patient given SQ Heparin 5000 units Q 12 LD- 2100 yesterday, no AM heparingiven this morning. platelet count 246.??Corpak in place, patient having difficulty swallowing pills will changeOxyir tab to oral liquid roxicodone.PLAN:At this time will remove epiduralChange Oxyir tab to liquid.Will add Morphine 1-2 mg Q 6 prn IVProc note: epidural removed with tip intact, patient tolerated procedurewell, band aid applied. Will sign off please reconsult if needed.??SUBJECTIVEInterval HPI:?Rocio Jackson is a 62 year old male who is POD 4, S/P whipple.??Pain at surgical site? Yes, abdomenCondition of surgical site: c/d/iOther locations of pain? NoPain score at rest: 0Pain score with movement (cough, deep breathe, ambulation, etc): 3Able to cough/deep breathe adequately?:YesHas patient been out of bed in a chair? NoHas patient been ambulating?: NoIs the patient tolerating Physical Therapy?: yesDuration: intermittentRadiation: NoRelieved: Yes - Epidural bolusIs patient satisfied with pain control: YesOvernight Events: NoneOvernight Pain Interventions: No??Diet: NPO?OBJECTIVEPERTINENT ROS: ??? ALLERGIES ALLERGIESNo Known Allergies?Information retrieved from Allergy section.??Is the patient intubated and sedated? No. ?Numbness?: NoWeakness?: NoNausea?: NoVomitting?: NoPruritis?: NoBack pain?: NoHeadache?: NoSedation?: NoConfusion/Delirium?: NoOther: none??Epidural Location: ThoracicEpidural catheter placed: Day of surgery??MEDICATIONS:??Epidu ral Medications and SUPERVISOR LAUNDRY SettingsBupivacaine 0.1% + Dilaudid??Basal rate: 4?mL/hr.Patient Demand Bolus: 3?mL.Lockout interval: 4?minutesCurrent hospital medications:oxyCODONE IR 5 mg tab(s) (ROXICODONE) 5 mg ORAL q 4 H VQEiyjqwo-jhkhnlkp-wmoafty 2 capsule cap(s) (CREON 24) 2 capsule ORAL TID wMEALSacetaminophen 650 mg tab(s) (TYLENOL) 650 mg ORAL q 6 Hdocusate sodium 100 mg cap(s) (COLACE) 100 mg ORAL BIDatorvastatin 40 mg tab(s) (LIPITOR) 40 mg ORAL/FEEDING TUBE AT BEDTIMEphenol 1 [place] (CHLORASEPTIC) 1 [place] MUCOUS MEMBRANE (TOPICAL MOUTH ANDTHROAT) q 2 H PRN0.9% NaCl 2-10 mL 2-10 mL INTRAVENOUS q 12 Hnaloxone 0.2 mg injection (NARCAN) 0.2 mg INTRAVENOUS PRNbupivacaine(PF) 0.1 %, HYDROmorphone (PF) 10 mcg/mL in NaCl 0.9% 300 mLepidural EPIDURAL CONTINUOUSnalbuphine 5 mg injection (NUBAIN) 5 mg INTRAVENOUS q 3 H PRNaspirin, enteric coated 162 mg tab(s) (ASPIRIN, ENTERIC COATED) 162 mgORAL DAILYnitroglycerin sublingual 0.4 mg tab(s) (NITROQUICK) 0.4 mg SUBLINGUAL q 5MIN PRNdextrose 40 % 15 g 15 g ORAL PRNglucagon 1 mg injection (GLUCAGEN) 1 mg INTRAMUSCULAR PRNdextrose 50% in water 25 mL syringe 12.5 g INTRAVENOUS PRNpotassium chloride ER 20-40 mEq tab(s) (K-DUR, KLOR-CON) 20-40 mEq ORALPRNpotassium chloride iv piggyback 20 mEq/100 mL 20 mEq INTRAVENOUS PRNmagnesium sulfate in water 2 g in sterile water 50 ml 2 g INTRAVENOUSPRN(NO DISPENSE)sodium phosphate 45 mmol in NaCl 0.9% 250 mL 45 mmol INTRAVENOUS PRN(NODISPENSE)ondansetron (PF) 4 mg injection (ZOFRAN) 4 mg INTRAVENOUS q 6 H PRNibuprofen 800 mg tab(s) (MOTRIN) 800 mg ORAL q 8 HHYDROmorphone 0.5 mg/mL SUPERVISOR LAUNDRY CLINICIAN DOSE 0.2 mg 0.2 mg INTRAVENOUS q 6 HPRNinsulin lispro injection (rapid acting) (HumaLOG) SUBCUTANEOUS q 6 Hheparin 5,000 Units injection 5,000 Units SUBCUTANEOUS q 12 Hmetoclopramide HCl 10 mg injection (REGLAN) 10 mg INTRAVENOUS q 6 H PRNOBJECTIVE:PHYSICAL EXAM:No data found.NEUROLOGICAL:?SENS ORY EXAM:?Other Limb: intact?MOTOR EXAM:?Other Limb: intactAFFECT: Awake, alert and oriented.GENERAL: Appears comfortable and in good spirits.RESPIRATORY EXAM:?Respirations: Breathing appears normal?Thoracostomy Tube: NoGASTROINTESTINAL EXAM:?Bowel Sounds: hypoactiveMS BLE 4/5, sensation BLE grossly intactDATA:Lab ResultsAPTT 25.9 09/30/2017PT Sec 12.2 09/30/2017PT INR 1.2 09/30/2017Hemoglobin 8.7 10/04/2017Hematocrit 27.0 10/04/2017Platelet Count 246 10/04/2017Discussed the patient?s progress and plan of care with Dr. Sánchez.SIGNATURE: Brock Dixon PA-C PATIENT NAME: Rocio VizcarraTE: October 04, 2017 : 8:36 AM PAGER/CONTACT #: [place] [phone] Normal [facility] Comp Metabolic Panelon 10-04 Alanine aminotransferase (ALT) 23 U/L Normal 5-50 [facility] Comment on above: Performed By: #### P T, PTT, AMYL, CMP, LIPA, PHOS ####[place] [address]#### TRANSF ####[place] [phone] Albumin 2.3 g/dL Low 3.5-5.0 [facility] Comment on above: Performed By: #### P T, PTT, AMYL, CMP, LIPA, PHOS ####[place] [address]#### TRANSF ####[place] [phone] Alkaline phosphatase (ALP) 83 U/L Normal 40-150 [facility] Comment on above: Performed By: #### P T, PTT, AMYL, CMP, LIPA, PHOS ####[place] [address]#### TRANSF ####[place] [phone] Anion gap 11 mmol/L Normal 9-18 [facility] Comment on above: Performed By: #### P T, PTT, AMYL, CMP, LIPA, PHOS ####[place] [address]#### TRANSF ####[place] [phone] Aspartate aminotransferase (AST) 19 U/L Normal 7-40 [facility] Comment on above: Performed By: #### P T, PTT, AMYL, CMP, LIPA, PHOS ####[place] [address]#### TRANSF ####[place] [address] Bilirubin (total) 0.2 mg/dL Normal 0.0-1.5 [facility] Comment on above: Performed By: #### P T, PTT, AMYL, CMP, LIPA, PHOS ####[place] [address]#### TRANSF ####[place] [address] Calcium 8.1 mg/dL Low 8.5-10.5 [facility] Comment on above: Performed By: #### P T, PTT, AMYL, CMP, LIPA, PHOS ####[place] [address]#### TRANSF ####[place] [address] Chloride 103 mmol/L Normal 98-110 [facility] Comment on above: Performed By: #### P T, PTT, AMYL, CMP, LIPA, PHOS ####[place] [address]#### TRANSF ####[place] [address] CO2 25 mmol/L Normal 23-32 [facility] Comment on above: Performed By: #### P T, PTT, AMYL, CMP, LIPA, PHOS ####[place] [address]#### TRANSF ####[place] [phone] Creatinine 0.54 mg/dL Low 0.70-1.40 [facility] Comment on above: Performed By: #### P T, PTT, AMYL, CMP, LIPA, PHOS ####[place] [phone]#### TRANSF ####[place] [phone] eGFR (non-black) mL/min/{1.73_m2} Normal >60 [facility] Comment on above: Performed By: #### P T, PTT, AMYL, CMP, LIPA, PHOS ####[place] [phone]#### TRANSF ####[place] [phone] Glucose mass conc 146 mg/dL High 65-100 [facility] Comment on above: Performed By: #### P T, PTT, AMYL, CMP, LIPA, PHOS ####[place] [phone]#### TRANSF ####[phone] Potassium molar conc 4.0 mmol/L Normal 3.5-5.0 [facility] Comment on above: Performed By: #### P T, PTT, AMYL, CMP, LIPA, PHOS ####[place] [phone]#### TRANSF ####[place] [phone] Protein 5.6 g/dL Low 6.0-8.4 [facility] Comment on above: Performed By: #### P T, PTT, AMYL, CMP, LIPA, PHOS ####[place] [phone]#### TRANSF ####[place] [address] [place] [phone] Sodium 139 mmol/L Normal 135-146 [facility] Comment on above: Performed By: #### P T, PTT, AMYL, CMP, LIPA, PHOS ####[place] [address]#### TRANSF ####[place] [address] Urea nitrogen 16 mg/dL Normal 10-25 [facility] Comment on above: Performed By: #### P T, PTT, AMYL, CMP, LIPA, PHOS ####[place] [address]#### TRANSF ####[place] [address] Magnesiumon 10-04-2017 Magnesium 1.8 mg/dL Normal 1.7-2.6 [facility] Comment on above: Performed By: #### P T, PTT, AMYL, CMP, LIPA, PHOS ####[place] [address]#### TRANSF ####[place] [phone] NURSING PROGon 10-04-2017 NURSING PROG HNO ID: [id number] thor: Homa (Rn) Bonnie, RNService: (none)Author Type: Registered NurseType: Nursing Progress NoteFiled: 10/05/2017 5:27 AMNote Text: Nursing Progress NotePatient Name: Rocio TorresDary: [id number] [id number] ____Daily Note:2049: Pt had one 50cc emesis. Medicated with Aoggod9653: Pt reassessed. States nausea has subsided. Will continue to monitor.454: Pt had 300cc green emesis episode. Medicated with zofran. Text pagesent to SROC to make aware.0525: SROC returned called. day team will be rounding soon. Willcontinue to monitor.This note was completed by: Homa Nicole RN [facility] PROGRESSon 10-04-2017 PROGRESS HNO ID: [id number] thor: Mela Sheridane: General SurgeryAuthor Type: PhysicianType: Progress NotesFiled: 10/04/2017 1:07 PMNote Text:General Surgery Progress NoteService Date: October 04, 2017Assessment and Plan: Rocio Jackson is a 62 year old male with history ofHTN, DM, CAD s/p PCI, who underwent a classic whipple for an obstructingduodenal mass 09/30, who was admitted to the SICU for postoperative care. JPamylase on POD 3 nml, removed.- OOB as tolerated- BPH, IS, wean supplemental O2 as tolerated- continue to FLD- ROMINA's removed yesterday- D/c epidural, [place]illa, po pain- tube feeds, severe protein-calorie malnutrition- IPCs, SQH- continue care on RNFSubjective:No acute events overnight. Tolerated FLD no n/v. No flatus or BM.Physical Exam:BP 141/87 Pulse 81 Temp 36.4 ?C (97.6 ?F) (Oral) Resp 17 Ht 172.7cm (5' 7.99 ) Wt 88.8 kg (195 lb 12.3 oz) SpO2 94% BMI 29.77 kg/n1LFULTLG: no acute distressABDOMEN: soft, nontender, mildly distended. Incision c/d/i. Manc[place] drainingyellow-red urine.Labs:CBC, BMP, MG, PHOSRecent Labs 10/03/18056WBC 4.20 5.92 6.15 6.47 -- 8.38HB 8.7* 9.5* 8.6* 7.8* -- 8.8*HCT 27.0* 29.4* 26.4* 24.3* -- 27.4*PLT 246 225 210 207 -- 230NA 139 140 -- 135 -- 140K 4.0 4.1 -- 4.2 -- 4.8CHLOR 103 105 -- 103 -- 105CO2 25 24 -- 26 -- 23BUN 16 18 -- 22 -- 20CREAT 0.54* 0.55* -- 0.64* -- 0.78GLUC 146* 138* -- 154* -- 145*CA 8.1* 8.3* -- 8.3* -- 7.7*MG 1.8 1.8 -- 1.9 2.1 1.3*P 3.5 3.1 -- 2.3* 3.0 4.4Liver Function, Amylase, AND LipaseRecent Labs 10/03/1805TPROT 5.6* 5.7* 5.3* 5.1* 5.8*ALB 2.3* 2.5* 2.5* 2.6* 3.1*ALT 23 25 27 35 46AST 19 20 23 32 48*ALKPHOS 83 72 68 70 91TBILI 0.2 0.2 0.3 0.3 0.5LACT -- -- -- -- 2.3*CoagsRecent Labs 09/24/1808440609ROZF 25.9 24.9 -- -- 39.8* 31.6INR 1.2 1.1 1.0 2.0* 2.0* 1.5*Current Medications:Current hospital medications:morphine 1-2 mg injection 1-2 mg INTRAVENOUS q 6 H PRNoxyCODONE 5 mg oral liquid (ROXICODONE) 5 mg ORAL q 4 H IKMjbhzun-tyqhbxsu-eijvfbl 2 capsule cap(s) (CREON 24) 2 capsule ORAL TID wMEALSacetaminophen 650 mg tab(s) (TYLENOL) 650 mg ORAL q 6 Hdocusate sodium 100 mg cap(s) (COLACE) 100 mg ORAL BIDatorvastatin 40 mg tab(s) (LIPITOR) 40 mg ORAL/FEEDING TUBE AT BEDTIMEphenol 1 [place] (CHLORASEPTIC) 1 [place] MUCOUS MEMBRANE (TOPICAL MOUTH ANDTHROAT) q 2 H PRN0.9% NaCl 2-10 mL 2-10 mL INTRAVENOUS q 12 Hnaloxone 0.2 mg injection (NARCAN) 0.2 mg INTRAVENOUS PRNaspirin, enteric coated 162 mg tab(s) (ASPIRIN, ENTERIC COATED) 162 mgORAL DAILYnitroglycerin sublingual 0.4 mg tab(s) (NITROQUICK) 0.4 mg SUBLINGUAL q 5MIN PRNdextrose 40 % 15 g 15 g ORAL PRNglucagon 1 mg injection (GLUCAGEN) 1 mg INTRAMUSCULAR PRNdextrose 50% in water 25 mL syringe 12.5 g INTRAVENOUS PRNpotassium chloride ER 20-40 mEq tab(s) (K-DUR, KLOR-CON) 20-40 mEq ORALPRNpotassium chloride iv piggyback 20 mEq/100 mL 20 mEq INTRAVENOUS PRNmagnesium sulfate in water 2 g in sterile water 50 ml 2 g INTRAVENOUSPRN(NO DISPENSE)sodium phosphate 45 mmol in NaCl 0.9% 250 mL 45 mmol INTRAVENOUS PRN(NODISPENSE)ondansetron (PF) 4 mg injection (ZOFRAN) 4 mg INTRAVENOUS q 6 H PRNibuprofen 800 mg tab(s) (MOTRIN) 800 mg ORAL q 8 Hinsulin lispro injection (rapid acting) (HumaLOG) SUBCUTANEOUS q 6 Hheparin 5,000 Units injection 5,000 Units SUBCUTANEOUS q 12 Hmetoclopramide HCl 10 mg injection (REGLAN) 10 mg INTRAVENOUS q 6 H PRNCovering MDI have seen and examined the patient with the house staff. Agree with keycomponents of resident's note, care plan and decision making for the daydiscussed.hector PO well and feels OK. Expected increase in pain after epidural removalMuriel Perez 2017 1:07 PM Normal [facility] Phosphoruson 10-04-2017 Phosphate 3.5 mg/dL Normal 2.5-4.5 [facility] Comment on above: Performed By: #### P T, PTT, AMYL, CMP, LIPA, PHOS ####[facility] [place], [place] [phone]#### TRANSF ####[facility], [place] [phone] Amylaseon 10-03-2017 Amylase 44 U/L Normal 0-137 [facility] Comment on above: Performed By: #### P T, PTT, AMYL, CMP, LIPA, PHOS ####[facility] [place], [place] [phone]#### TRANSF ####[place] [address] [place], [place] [phone] Amylase,Body Fluidon 018 Amylase 118 U/L Critically abnormal See Comment [facility] Comment on above: Result Comment: (NOT E)PLEURAL FLUIDS:Amylase measurement in pleural fluid is considered a useful test fordetecting amylase-rich pleural effusions, which may be caused byexudative conditions associated with pancreatitis, esophagealrupture, malignancy, pneumonia, and liver cirrhosis. A ratio ofpleural fluid amylase to a concurrent serum amylase >1 is defined asan amylase-rich pleural effusion.PERITONEAL FLUIDS AND DRAINAGE FLUIDS:Pancreatic damage causes extravasation of amylase from the exocrinecells into the peritoneal space. In cases of pancreatitis, fluidamylase should be at least several-fold times higher in fluid ofpancreatic origin compared to concurrent serum amylase values.PANCREATIC CYST FLUID:Pancreatic cyst fluid amylase may aid in characterizing tumors andshould be interpreted along with other clinical and laboratoryinformation.References:1. Billie FRITZ, Ian Diaz. Body fluid analysis: clinicalutility and applicability of published studies to guideinterpretation of todays laboratory testing in serous fluids. CritRev Clin Lab Sci, 2013;50(4-5):107-124.2. CLSI. Analysis of Body Fluids in Clinical Chemistry; ApprovedGuideline. CLSI document C49-A. SAIMA Contreras: Clinical LaboratoryStandards [place]; 2007.3. Kya CL[facility], Angelia SANCHZE, Nimo DJ. Use of cyst fluid CEA,CA19-9, and amylase for evaluation of pancreatic lesions. ClinicalBiochemistry. 2009;42:0055-7452.This test was developed and its performance characteristicsdetermined by [facility]'s [facility] and[facility] [place] ([facility]).It has not been cleared or approved by the FDA. [facility] is regulatedunder CLIA as qualified to perform high-complexity testing.This test is used for clinical purposes. It should not be regarded asinvestigational or for research. Performed By: #### P T, PTT, AMYL, CMP, LIPA, PHOS ####[place] [address]#### TRANSF ####[place] [address] Fluid Type Chandana Howard Drain Normal [facility] Comment on above: Result Comment: LEFT Performed By: #### P T, PTT, AMYL, CMP, LIPA, PHOS ####[place] [address]#### TRANSF ####[place] [address] Amylase 53 U/L Critically abnormal See Comment [facility] Comment on above: Result Comment: (NOT E)PLEURAL FLUIDS:Amylase measurement in pleural fluid is considered a useful test fordetecting amylase-rich pleural effusions, which may be caused byexudative conditions associated with pancreatitis, esophagealrupture, malignancy, pneumonia, and liver cirrhosis. A ratio ofpleural fluid amylase to a concurrent serum amylase >1 is defined asan amylase-rich pleural effusion.PERITONEAL FLUIDS AND DRAINAGE FLUIDS:Pancreatic damage causes extravasation of amylase from the exocrinecells into the peritoneal space. In cases of pancreatitis, fluidamylase should be at least several-fold times higher in fluid ofpancreatic origin compared to concurrent serum amylase values.PANCREATIC CYST FLUID:Pancreatic cyst fluid amylase may aid in characterizing tumors andshould be interpreted along with other clinical and laboratoryinformation.References:1. Billie FRITZ, Ian Diaz. Body fluid analysis: clinicalutility and applicability of published studies to guideinterpretation of todays laboratory testing in serous fluids. CritRev Clin Lab Sci, 2013;50(4-5):107-124.2. CLSI. Analysis of Body Fluids in Clinical Chemistry; ApprovedGuideline. CLSI document C49-A. SAIMA Contreras: Clinical LaboratoryStandards [place]; 2006.3. Kya CL[facility], Angelia RC, Nimo DJ. Use of cyst fluid CEA,CA19-9, and amylase for evaluation of pancreatic lesions. ClinicalBiochemistry. 2009;42:1230-8303.This test was developed and its performance characteristicsdetermined by [facility]'s [facility] Pathology and[facility] [place] ([facility]).It has not been cleared or approved by the FDA. [facility] is regulatedunder CLIA as qualified to perform high-complexity testing.This test is used for clinical purposes. It should not be regarded asinvestigational or for research. Performed By: #### P T, PTT, AMYL, CMP, LIPA, PHOS ####[place] [address]#### TRANSF ####[place] [phone] Fluid Type Chandana Howard Drain Normal [facility] Comment on above: Result Comment: GLORIA T Performed By: #### P T, PTT, AMYL, CMP, LIPA, PHOS ####[place] [address]#### TRANSF ####[place] [phone] CBC and Differentialon 10-03 Abs Baso <0.03 Normal <0.11 [facility] Comment on above: Performed By: #### P T, PTT, AMYL, CMP, LIPA, PHOS ####[place] [address]#### TRANSF ####[place] [address] Abs [place] 0.54 k/uL Normal <0.87 [facility] Comment on above: Performed By: #### P T, PTT, AMYL, CMP, LIPA, PHOS ####[place] [address]#### TRANSF ####[place] [address] [address] [phone] Abs Neut 3.56 k/uL Normal 1.45-7.50 [facility] Comment on above: Performed By: #### P T, PTT, AMYL, CMP, LIPA, PHOS ####[place] [address]#### TRANSF ####[place] [address] [address] [place] [phone] Basophils/100 WBC Auto (Bld) 0.2 % Normal [facility] Comment on above: Performed By: #### P T, PTT, AMYL, CMP, LIPA, PHOS ####[place] [address]#### TRANSF ####[place] [address] DTYPE Auto Diff Normal [facility] Comment on above: Performed By: #### P T, PTT, AMYL, CMP, LIPA, PHOS ####[place] [address]#### TRANSF ####[place] [address] [address] [place] [phone] Eosinophils 0.29 10*3/uL Normal <0.46 [facility] Comment on above: Performed By: #### P T, PTT, AMYL, CMP, LIPA, PHOS ####[place] [address]#### TRANSF ####[place] [address] [address] [place] [phone] Eosinophils/100 leukocytes 4.9 % Normal [facility] Comment on above: Performed By: #### P T, PTT, AMYL, CMP, LIPA, PHOS ####[place] [address]#### TRANSF ####[place] [address] Erythrocyte distribution width Auto Ratio (RBC) 16.1 % High 11.5-15.0 [facility] Comment on above: Performed By: #### P T, PTT, AMYL, CMP, LIPA, PHOS ####[place] [address]#### TRANSF ####[place] [address] Erythrocytes (RBC) 3.72 10*6/uL Low 4.20-6.00 [facility] Comment on above: Performed By: #### P T, PTT, AMYL, CMP, LIPA, PHOS ####[place] [address]#### TRANSF ####[place] [address] Hematocrit (HCT) 29.4 % Low 39.0-51.0 [facility] Comment on above: Performed By: #### P T, PTT, AMYL, CMP, LIPA, PHOS ####[place] [address]#### TRANSF ####[place] [address] Hemoglobin mass conc (Bld) 9.5 g/dL Low 13.0-17.0 [facility] Comment on above: Performed By: #### P T, PTT, AMYL, CMP, LIPA, PHOS ####[place] [address]#### TRANSF ####[place] [address] Lymphocytes 1.52 10*3/uL Normal 1.00-4.00 [facility] Comment on above: Performed By: #### P T, PTT, AMYL, CMP, LIPA, PHOS ####[place] [address]#### TRANSF ####[place] [address] Lymphocytes/100 leukocytes 25.7 % Normal [facility] Comment on above: Performed By: #### P T, PTT, AMYL, CMP, LIPA, PHOS ####[place] [address]#### TRANSF ####[place] [address] MCH 25.5 pG Low 26.0-34.0 [facility] Comment on above: Performed By: #### P T, PTT, AMYL, CMP, LIPA, PHOS ####[place] [address]#### TRANSF ####[place] [address] MCHC mass conc (RBC) 32.3 g/dL Normal 30.5-36.0 [facility] Comment on above: Performed By: #### P T, PTT, AMYL, CMP, LIPA, PHOS ####[place] [address]#### TRANSF ####[place] [address] MCV 79.0 fL Low 80.0-100.0 [facility] Comment on above: Performed By: #### P T, PTT, AMYL, CMP, LIPA, PHOS ####[address]#### TRANSF ####[place] [address] [address] [place] [phone] Monocytes/100 leukocytes 9.1 % Normal [facility] Comment on above: Performed By: #### P T, PTT, AMYL, CMP, LIPA, PHOS ####[place] [phone]#### TRANSF ####[address] [place]ille [phone] Neutrophils/100 WBC Auto (Bld) 60.1 % Normal [facility] Comment on above: Performed By: #### P T, PTT, AMYL, CMP, LIPA, PHOS ####[address]#### TRANSF ####[place] [phone] Platelet mean volume (PMV) 10.0 fL Normal 9.0-12.7 [facility] Comment on above: Performed By: #### P T, PTT, AMYL, CMP, LIPA, PHOS ####[address]#### TRANSF ####[place] [phone] Platelets 225 10*3/uL Normal 150-400 [facility] Comment on above: Performed By: #### P T, PTT, AMYL, CMP, LIPA, PHOS ####[place] [address]#### TRANSF ####[address] [place] [phone] WBC (Leukocytes) 5.92 10*3/uL Normal 3.70-11.00 [facility] Comment on above: Performed By: #### P T, PTT, AMYL, CMP, LIPA, PHOS ####[place] [phone]#### TRANSF ####[facility] [address] [place], [place] [phone] CONSULT PROGon 10-03-2017 CONSULT PROG HNO ID: [id number] thor: Brock DixonService: Pain ManagementAuthor Type: Physician AssistantType: Consult Progress NoteFiled: 10/03/2017 9:15 AMNote Text:PERIPHERAL NERVE CATHETER PROGRESS NOTEPATIENT NAME: Rocio JacksonMRN: [id number] DATE: 10/03/2017SERVICE TIME: 8:59 AMPRIMARY SERVICE: General Surgery?ASSESSMENT : Rocio Jackson is a 62 year old male with hx of DM, HTN, CAD,s/p PCI with stent placement, PSH of cholecystectomy, who is now POD# 3s/p Whipple procedure for duodenal mass with distal duodenal distortion.T9-10?Epidural placed to aid in post op pain control.?Epidural site without signs or symptoms of infection, no erythema,tenderness, drainage, or warmth.No nausea or vomiting.Pain adequately controlled.Patient given SQ Heparin 5000 units Q 12 LD- 0828, platelet count 225.?PLAN:Continue epidural analgesia to promote comfort, mobility, and pulmonarytoilet.Continue adjunctive therapy as needed..?SUBJECTIVEInterval HPI: Rocio Jackson is a 62 year old male who is POD 3, S/P whipple.?Pain at surgical site? Yes, abdomenCondition of surgical site: c/d/iOther locations of pain? NoPain score at rest: 0Pain score with movement (cough, deep breathe, ambulation, etc): 4Able to cough/deep breathe adequately?:YesHas patient been out of bed in a chair? NoHas patient been ambulating?: NoIs the patient tolerating Physical Therapy?: yesDuration: intermittentRadiation: NoRelieved: Yes - Epidural bolusIs patient satisfied with pain control: YesOvernight Events: NoneOvernight Pain Interventions: No?Diet: NPO??OBJECTIVEPERTINENT ROS: ALLERGIES ALLERGIESNo Known AllergiesInformation retrieved from Allergy section.?Is the patient intubated and sedated? No.Numbness?: NoWeakness?: NoNausea?: NoVomitting?: NoPruritis?: NoBack pain?: NoHeadache?: NoSedation?: NoConfusion/Delirium?: NoOther: none?Epidural Location: ThoracicEpidural catheter placed: Day of surgery?MEDICATIONS:Epidural Medications and SUPERVISOR LAUNDRY SettingsBupivacaine 0.1% + Dilaudid?Basal rate: 4 mL/hr.Patient Demand Bolus: 3 mL.Lockout interval: 4 minutes.??Current hospital medications:oxyCODONE IR 5 mg tab(s) (ROXICODONE) 5 mg ORAL q 4 H PRNdocusate sodium 100 mg cap(s) (COLACE) 100 mg ORAL BIDacetaminophen 650 mg CUP (TYLENOL) 650 mg ORAL/FEEDING TUBE q 6 Hatorvastatin 40 mg tab(s) (LIPITOR) 40 mg ORAL/FEEDING TUBE AT BEDTIMEphenol 1 [place] (CHLORASEPTIC) 1 [place] MUCOUS MEMBRANE (TOPICAL MOUTH ANDTHROAT) q 2 H PRN0.9% NaCl 2-10 mL 2-10 mL INTRAVENOUS q 12 Hnaloxone 0.2 mg injection (NARCAN) 0.2 mg INTRAVENOUS PRNbupivacaine(PF) 0.1 %, HYDROmorphone (PF) 10 mcg/mL in NaCl 0.9% 300 mLepidural EPIDURAL CONTINUOUSnalbuphine 5 mg injection (NUBAIN) 5 mg INTRAVENOUS q 3 H PRNaspirin, enteric coated 162 mg tab(s) (ASPIRIN, ENTERIC COATED) 162 mgORAL DAILYnitroglycerin sublingual 0.4 mg tab(s) (NITROQUICK) 0.4 mg SUBLINGUAL q 5MIN PRNdextrose 40 % 15 g 15 g ORAL PRNglucagon 1 mg injection (GLUCAGEN) 1 mg INTRAMUSCULAR PRNdextrose 50% in water 25 mL syringe 12.5 g INTRAVENOUS PRNpotassium chloride ER 20-40 mEq tab(s) (K-DUR, KLOR-CON) 20-40 mEq ORALPRNpotassium chloride iv piggyback 20 mEq/100 mL 20 mEq INTRAVENOUS PRNmagnesium sulfate in water 2 g in sterile water 50 ml 2 g INTRAVENOUSPRN(NO DISPENSE)sodium phosphate 45 mmol in NaCl 0.9% 250 mL 45 mmol INTRAVENOUS PRN(NODISPENSE)ondansetron (PF) 4 mg injection (ZOFRAN) 4 mg INTRAVENOUS q 6 H PRNibuprofen 800 mg tab(s) (MOTRIN) 800 mg ORAL q 8 HHYDROmorphone 0.5 mg/mL SUPERVISOR LAUNDRY CLINICIAN DOSE 0.2 mg 0.2 mg INTRAVENOUS q 6 HPRNinsulin lispro injection (rapid acting) (HumaLOG) SUBCUTANEOUS q 6 Hheparin 5,000 Units injection 5,000 Units SUBCUTANEOUS q 12 Hmetoclopramide HCl 10 mg injection (REGLAN) 10 mg INTRAVENOUS q 6 H PRNOBJECTIVE:PHYSICAL EXAM:Patient Vitals for the past 3 hrs: BP Temp Temp src Pulse Resp IiI07410/03/17 0736 134/78 37.3 ?C (99.2 ?F) Oral 95 16 93 %NEUROLOGICAL: SENSORY EXAM: Other Limb: intact MOTOR EXAM: Other Limb: intactAFFECT: Awake, alert and oriented.GENERAL: Appears comfortable and in good spirits.RESPIRATORY EXAM: Respirations: Breathing appears normal Thoracostomy Tube: NoGASTROINTESTINAL EXAM: Bowel Sounds: hypoactiveMS BLE 4/5, sensation BLE grossly intact.DATA:Lab ResultsAPTT 25.9 09/30/2017PT Sec 12.2 09/30/2017PT INR 1.2 09/30/2017Hemoglobin 9.5 10/03/2017Hematocrit 29.4 10/03/2017Platelet Count 225 10/03/2017Discussed the patient?s progress and plan of care with Dr. RamiresGNATURE: Brock Dixon PA-C PATIENT NAME: Rocio VizcarraTE: October 03, 2017 : 8:59 AM PAGER/CONTACT #: [phone] Normal [facility] Comp Metabolic Panelon 10-03 Alanine aminotransferase (ALT) 25 U/L Normal 5-50 [facility] Comment on above: Performed By: #### P T, PTT, AMYL, CMP, LIPA, PHOS ####[facility] [place], [place] [phone]#### TRANSF ####[facility] [place], [place] [phone] Albumin 2.5 g/dL Low 3.5-5.0 [facility] Comment on above: Performed By: #### P T, PTT, AMYL, CMP, LIPA, PHOS ####[place] [address]#### TRANSF ####[place] [phone] Alkaline phosphatase (ALP) 72 U/L Normal 40-150 [facility] Comment on above: Performed By: #### P T, PTT, AMYL, CMP, LIPA, PHOS ####[place] [address]#### TRANSF ####[place] [address] Anion gap 11 mmol/L Normal 9-18 [facility] Comment on above: Performed By: #### P T, PTT, AMYL, CMP, LIPA, PHOS ####[place] [address]#### TRANSF ####[place] [address] Aspartate aminotransferase (AST) 20 U/L Normal 7-40 [facility] Comment on above: Performed By: #### P T, PTT, AMYL, CMP, LIPA, PHOS ####[place] [address]#### TRANSF ####[place] [address] Bilirubin (total) 0.2 mg/dL Normal 0.0-1.5 [facility] Comment on above: Performed By: #### P T, PTT, AMYL, CMP, LIPA, PHOS ####[place] [address]#### TRANSF ####[place] [address] Calcium 8.3 mg/dL Low 8.5-10.5 [facility] Comment on above: Performed By: #### P T, PTT, AMYL, CMP, LIPA, PHOS ####[place] [address]#### TRANSF ####[place] [address] Chloride 105 mmol/L Normal 98-110 [facility] Comment on above: Performed By: #### P T, PTT, AMYL, CMP, LIPA, PHOS ####[place] [address]#### TRANSF ####[place] [address] CO2 24 mmol/L Normal 23-32 [facility] Comment on above: Performed By: #### P T, PTT, AMYL, CMP, LIPA, PHOS ####[place] [address]#### TRANSF ####[place] [address] Creatinine 0.55 mg/dL Low 0.70-1.40 [facility] Comment on above: Performed By: #### P T, PTT, AMYL, CMP, LIPA, PHOS ####[place] [address]#### TRANSF ####[place] [address] eGFR (non-black) mL/min/{1.73_m2} Normal >60 [facility] Comment on above: Performed By: #### P T, PTT, AMYL, CMP, LIPA, PHOS ####[place] [address]#### TRANSF ####[place] [address] Glucose mass conc 138 mg/dL High 65-100 [facility] Comment on above: Performed By: #### P T, PTT, AMYL, CMP, LIPA, PHOS ####[place] [address]#### TRANSF ####[place] [address] Potassium molar conc 4.1 mmol/L Normal 3.5-5.0 [facility] Comment on above: Performed By: #### P T, PTT, AMYL, CMP, LIPA, PHOS ####[place] [address]#### TRANSF ####[place] [address] Protein 5.7 g/dL Low 6.0-8.4 [facility] Comment on above: Performed By: #### P T, PTT, AMYL, CMP, LIPA, PHOS ####[place] [address]#### TRANSF ####[place] [address] Sodium 140 mmol/L Normal 135-146 [facility] Comment on above: Performed By: #### P T, PTT, AMYL, CMP, LIPA, PHOS ####[place] [address]#### TRANSF ####[place] [address] Urea nitrogen 18 mg/dL Normal 10-25 [facility] Comment on above: Performed By: #### P T, PTT, AMYL, CMP, LIPA, PHOS ####[place] [address]#### TRANSF ####[place] [address] Magnesiumon 10-03-2017 Magnesium 1.8 mg/dL Normal 1.7-2.6 [facility] Comment on above: Performed By: #### P T, PTT, AMYL, CMP, LIPA, PHOS ####[facility] [place], [place] [phone]#### TRANSF ####[facility] [address] [place], [place] [phone] NURSING PROGon 10-03-2017 NURSING PROG HNO ID: [id number] thor: Homa KenRn) Bhupinder Nicole: (none)Author Type: Registered NurseType: Nursing Progress NoteFiled: 10/04/2017 1:34 AMNote Text: Nursing Progress NotePatient Name: Rociomarisa Boudreaux: [id number] Location: [address]/[id number] ____Daily Note: Pt AANDOx3. Adequate saturation on RA. ABD distended, tender totouch. Midline ADELA. Pt states he has passed a little gas. [place]anc[place] drainingclear, yellow. Epidural infusing per order. Tube feed at 50cc/hr.Ambulated pod with x1 assist and walker. No needs voiced. Call lightwithin reach, will continue to monitor.This note was completed by: Homa Nicole RN [facility] NURSING PROG HNO ID: [id number] thor: Serena Arreola) Clayton Stewartice: NursingAuthor Type: Registered NurseType: Nursing Progress NoteFiled: 10/03/2017 6:32 PMNote Text: Nursing Progress NotePatient Name: Rociomarisa Boudreaux: [id number] Location: [address]/[id number] ____Daily Note: Late entry for 1100: Pt ambulated nursing home around POD usingwalker ( standby assistance). Pt tolerated well. Currently sitting inrecliner chair. Family at bedside.1300: Diet advanced to full liquids. Tolerating well. Creon given withlunch. Handout given and teaching provided about new medication.1500: Right biliary drain flushed with 5cc NS per order. New drainsponges applied to right and left ROMINA drains.1530: Pt ambulated nursing home around POD for 2nd time this [id number]: Resident into remove pt's ROMINA drains. PtThis note was completed by: Serena Stewart RN [facility] NURSING PROG HNO ID: [id number] thor: Jennifer Humphries (Rn) Eleanor, RNService: (none)Author Type: Registered NurseType: Nursing Progress NoteFiled: 10/02/2017 11:39 PMNote Text: Nursing Progress NotePatient Name: Rocio JacksonMRN: [id number] Location: [place] [address]/[id number] ____ Pt up in chair at start of shift. Pts and sister staying in room wpt. Rates pain 1 , states epidural adequate for pain control. Bili drainflushed earlier per orders, flushes well. Pt denies nausea with clears.BS hypo. Denies passing flatus.This note was completed by: Jennifer Webster, KEVIN [facility] PROGRESSon 10-03-2017 PROGRESS HNO ID: [id number] thor: Mela Carroll: General SurgeryAuthor Type: PhysicianType: Progress NotesFiled: 10/03/2017 1:26 PMNote Text:Covering MDNo new c/oPain well controlledCont epidural for nowWill remove drains if no evid for leakPt appreciative of Molly Verdin MD [facility] PROGRESS HNO ID: [id number] thor: Flynn (Res) ASHLEY Laraervice: General SurgeryAuthor Type: ResidentType: Progress NotesFiled: 10/03/2017 3:16 PMNote Text:General Surgery Progress NoteService Date: October 03, 2017Assessment and Plan: Rocio Jackson is a 62 year old male with history ofHTN, DM, CAD s/p PCI, who underwent a classic whipple for an obstructingduodenal mass 09/30, who was admitted to the SICU for postoperative care.- OOB as tolerated- BPH, IS, wean supplemental O2 as tolerated- advance to FLD- Anticipate d/c epidural tomorrow, start PO pain- tube feeds, severe protein-calorie malnutrition- IPCs, SQH- continue care on RNFSubjective:No acute events overnight. Tolerated CLD no n/v. No flatus or BM.Physical Exam:BP 129/77 Pulse 94 Temp 36.4 ?C (97.5 ?F) (Oral) Resp 18 Ht 172.7cm (5' 7.99 ) Wt 88.8 kg (195 lb 12.3 oz) SpO2 97% BMI 29.77 kg/a0LGXNHFI: no acute distressABDOMEN: soft, diffusely tender, nondistended. Incision c/d/i. Foleydraining yellow-red urine. Both JPs with serosanguinous fluid.Labs:CBC, BMP, MG, PHOSRecent Labs 10/02/18208432805WBC 5.92 6.15 6.47 -- 8.38 < > 7.14HB 9.5* 8.6* 7.8* -- 8.8* < > 10.1*HCT 29.4* 26.4* 24.3* -- 27.4* < > 30.7*PLT 225 210 207 -- 230 < > 242NA 140 -- 135 -- 140 -- 140K 4.1 -- 4.2 -- 4.8 -- 4.9CHLOR 105 -- 103 -- 105 -- 105CO2 24 -- 26 -- 23 -- 24BUN 18 -- 22 -- 20 -- 18CREAT 0.55* -- 0.64* -- 0.78 -- 0.65*GLUC 138* -- 154* -- 145* -- 157*CA 8.3* -- 8.3* -- 7.7* -- 7.8*MG 1.8 -- 1.9 2.1 1.3* -- --P 3.1 -- 2.3* 3.0 4.4 -- --< > = values in this interval not displayed.Liver Function, Amylase, AND LipaseRecent Labs 10/02/1802TPROT 5.7* 5.3* 5.1* 5.8*ALB 2.5* 2.5* 2.6* 3.1*ALT 25 27 35 46AST 20 23 32 48*ALKPHOS 72 68 70 91TBILI 0.2 0.3 0.3 0.5LACT -- -- -- 2.3*CoagsRecent Labs 09/24/18083 08/15/1820945013UWGZ 25.9 24.9 -- -- 39.8* 31.6INR 1.2 1.1 1.0 2.0* 2.0* 1.5*Intake and Output:Date 10/01/17 07 - 10/02/17 0659 10/02/17699 - 10/03/17 0659Shift 9355-5241 7669-0811 4626-2832 24 Hour Total 6850-8727 6186-37762022-6103 24 Hour TotalINTAKE PO 0 97 482 579 PO 0 0 0 Tube Feed Intake (GI Feed/Drain 09/30/17 Small Bore Feeding Right Naris10 Fr) 97 482 579 IV 100 2759 59.6 2918.6 LR 2759 59.6 2818.6 Calcium IVPB 100 100 Irrigants 50 30 60 140 60 60 Irrigant/Flush Amount In ( Indwelling Urinary Catheter 09/30/17 0909Foley 16 Fr) 0 0 0 Irrigant/Flush Amount In (GI Feed/Drain 09/30/17 Small Bore FeedingRight Naris 10 Fr) 50 30 60 140 60 60 Irrigant/Flush Amount In (Drain/Tube 09/30/17 1626 Chandana Howard LeftAbdomen Drain #2) 0 0 Shift Total 150 2886 601.6 3637.6 60 60OUTPUT Urine 310 085 971 0642 75 75 Tube Output ( Indwelling Urinary Catheter 09/30/17 0909 [place] 16Fr) 310 580 478 1845 75 75 Tubes 70 135 35 240 Drain/Tube Output (Drain/Tube 09/30/17 1626 Chandana Howard Left AbdomenDrain #2) 10 25 10 45 Drain/Tube Output (Drain/Tube 09/30/17 1627 Chandana Howard Right AbdomenDrain #1) 60 110 25 195 Output (GI Feed/Drain 09/30/17 Small Bore Feeding Right Naris 10 Fr) 0 0 # of BMs Number of BMs 0 x 0 x Stool 0 0 Liquid BM (mL) 0 0 Shift Total 380 382 361 5135 75 75Weight (kg) 81.1 81.1 88.8 88.8 88.8 88.8 88.8 88.8Current Medications:Current hospital medications:oxyCODONE IR 5 mg tab(s) (ROXICODONE) 5 mg ORAL q 4 H XOHajwlby-lnwhunqm-oklizuo 2 capsule cap(s) (CREON 24) 2 capsule ORAL TID wMEALSacetaminophen 650 mg tab(s) (TYLENOL) 650 mg ORAL q 6 Hdocusate sodium 100 mg cap(s) (COLACE) 100 mg ORAL BIDatorvastatin 40 mg tab(s) (LIPITOR) 40 mg ORAL/FEEDING TUBE AT BEDTIMEphenol 1 [place] (CHLORASEPTIC) 1 [place] MUCOUS MEMBRANE (TOPICAL MOUTH ANDTHROAT) q 2 H PRN0.9% NaCl 2-10 mL 2-10 mL INTRAVENOUS q 12 Hnaloxone 0.2 mg injection (NARCAN) 0.2 mg INTRAVENOUS PRNbupivacaine(PF) 0.1 %, HYDROmorphone (PF) 10 mcg/mL in NaCl 0.9% 300 mLepidural EPIDURAL CONTINUOUSnalbuphine 5 mg injection (NUBAIN) 5 mg INTRAVENOUS q 3 H PRNaspirin, enteric coated 162 mg tab(s) (ASPIRIN, ENTERIC COATED) 162 mgORAL DAILYnitroglycerin sublingual 0.4 mg tab(s) (NITROQUICK) 0.4 mg SUBLINGUAL q 5MIN PRNdextrose 40 % 15 g 15 g ORAL PRNglucagon 1 mg injection (GLUCAGEN) 1 mg INTRAMUSCULAR PRNdextrose 50% in water 25 mL syringe 12.5 g INTRAVENOUS PRNpotassium chloride ER 20-40 mEq tab(s) (K-DUR, KLOR-CON) 20-40 mEq ORALPRNpotassium chloride iv piggyback 20 mEq/100 mL 20 mEq INTRAVENOUS PRNmagnesium sulfate in water 2 g in sterile water 50 ml 2 g INTRAVENOUSPRN(NO DISPENSE)sodium phosphate 45 mmol in NaCl 0.9% 250 mL 45 mmol INTRAVENOUS PRN(NODISPENSE)ondansetron (PF) 4 mg injection (ZOFRAN) 4 mg INTRAVENOUS q 6 H PRNibuprofen 800 mg tab(s) (MOTRIN) 800 mg ORAL q 8 HHYDROmorphone 0.5 mg/mL SUPERVISOR LAUNDRY CLINICIAN DOSE 0.2 mg 0.2 mg INTRAVENOUS q 6 HPRNinsulin lispro injection (rapid acting) (HumaLOG) SUBCUTANEOUS q 6 Hheparin 5,000 Units injection 5,000 Units SUBCUTANEOUS q 12 Hmetoclopramide HCl 10 mg injection (REGLAN) 10 mg INTRAVENOUS q 6 H PRN Normal [facility] Phosphoruson 10-03-2017 Phosphate 3.1 mg/dL Normal 2.5-4.5 [facility] Comment on above: Performed By: #### P T, PTT, AMYL, CMP, LIPA, PHOS ####[address] [phone]#### TRANSF ####[place] [id number] [place] [phone] Amylaseon 10-02-2017 Amylase 45 U/L Normal 0-137 [facility] Comment on above: Performed By: #### P T, PTT, AMYL, CMP, LIPA, PHOS ####[address] [phone]#### TRANSF ####[place] [address] [place], [place] [phone] CASE MANAGEMon 10-02-2017 CASE MANAGEM HNO ID: [id number] thor: Lee Ann (Rn) Sveta, RNService: Care ManagementAuthor Type: Registered NurseType: Care Mgt Progress NoteFiled: 10/02/2017 11:48 AMNote Text:CARE MANAGEMENT PROGRESS NOTESERVICE DATE: 10/02/2017SERVICE TIME: 11:44 AM LOS: 2 daysFREEDOM OF CHOICE GIVEN:Yes patientProvider List: Fdc FacilityNeeds Prior to Discharge: Accepting FacilityTCC met with patient and sister Briana at bedside. Discussed PTrecommendations for acute rehab--[facility] closest acute rehab that acceptshis insurance, patient states wants to be closer to home-[facility] and states would prefer a SNF closer to home. Givenprovider list, patient and sister want to look over the list beforedeciding. CM will continue to assist with transition of care needs.SIGNATURE: Lee Ann Bangura RN PATIENT NAME: Rocio VizcarraTE: October 02, 2017 : 11:44 AM PAGER/CONTACT #: [phone] Normal [facility] CBCon 10-02-2017 Erythrocyte distribution width Auto Ratio (RBC) 16.2 % High 11.5-15.0 [facility] Comment on above: Performed By: #### P T, PTT, AMYL, CMP, LIPA, PHOS ####[place] [phone]#### TRANSF ####[phone] Erythrocytes (RBC) 3.38 10*6/uL Low 4.20-6.00 [facility] Comment on above: Performed By: #### P T, PTT, AMYL, CMP, LIPA, PHOS ####[place] [phone]#### TRANSF ####[place] [phone] Hematocrit (HCT) 26.4 % Low 39.0-51.0 [facility] Comment on above: Performed By: #### P T, PTT, AMYL, CMP, LIPA, PHOS ####[place] [address]#### TRANSF ####[place] [phone] Hemoglobin mass conc (Bld) 8.6 g/dL Low 13.0-17.0 [facility] Comment on above: Performed By: #### P T, PTT, AMYL, CMP, LIPA, PHOS ####[place] [address]#### TRANSF ####[place] [phone] MCH 25.4 pG Low 26.0-34.0 [facility] Comment on above: Performed By: #### P T, PTT, AMYL, CMP, LIPA, PHOS ####[place] [address]#### TRANSF ####[place] [phone] MCHC mass conc (RBC) 32.6 g/dL Normal 30.5-36.0 [facility] Comment on above: Performed By: #### P T, PTT, AMYL, CMP, LIPA, PHOS ####[place] [address]#### TRANSF ####[place] [phone] MCV 78.1 fL Low 80.0-100.0 [facility] Comment on above: Performed By: #### P T, PTT, AMYL, CMP, LIPA, PHOS ####[place] [address]#### TRANSF ####[place] [phone] Platelet mean volume (PMV) 9.4 fL Normal 9.0-12.7 [facility] Comment on above: Performed By: #### P T, PTT, AMYL, CMP, LIPA, PHOS ####[place] [address]#### TRANSF ####[place] [phone] Platelets 210 10*3/uL Normal 150-400 [facility] Comment on above: Performed By: #### P T, PTT, AMYL, CMP, LIPA, PHOS ####[place] [address]#### TRANSF ####[place] [phone] WBC (Leukocytes) 6.15 10*3/uL Normal 3.70-11.00 [facility] Comment on above: Performed By: #### P T, PTT, AMYL, CMP, LIPA, PHOS ####[place] [address]#### TRANSF ####[place] [phone] CBC and Differentialon 10-02 Abs Baso <0.03 Normal <0.11 [facility] Comment on above: Performed By: #### P T, PTT, AMYL, CMP, LIPA, PHOS ####[place] [address]#### TRANSF ####[place] [phone] Abs [place] 0.49 k/uL Normal <0.87 [facility] Comment on above: Performed By: #### P T, PTT, AMYL, CMP, LIPA, PHOS ####[address]#### TRANSF ####[address], [place] [phone] Abs Neut 4.18 k/uL Normal 1.45-7.50 [facility] Comment on above: Performed By: #### P T, PTT, AMYL, CMP, LIPA, PHOS ####[place] [address]#### TRANSF ####[place] [phone] Basophils/100 WBC Auto (Bld) 0.2 % Normal [facility] Comment on above: Performed By: #### P T, PTT, AMYL, CMP, LIPA, PHOS ####[place] [address]#### TRANSF ####[place] [phone] DTYPE Auto Diff Normal [facility] Comment on above: Performed By: #### P T, PTT, AMYL, CMP, LIPA, PHOS ####[place] [address]#### TRANSF ####[place] [phone] Eosinophils 0.23 10*3/uL Normal <0.46 [facility] Comment on above: Performed By: #### P T, PTT, AMYL, CMP, LIPA, PHOS ####[place] [address]#### TRANSF ####[place] [phone] Eosinophils/100 leukocytes 3.6 % Normal [facility] Comment on above: Performed By: #### P T, PTT, AMYL, CMP, LIPA, PHOS ####[place] [address]#### TRANSF ####[place] [phone] Erythrocyte distribution width Auto Ratio (RBC) 16.6 % High 11.5-15.0 [facility] Comment on above: Performed By: #### P T, PTT, AMYL, CMP, LIPA, PHOS ####[place] [address]#### TRANSF ####[place] [address] Erythrocytes (RBC) 3.13 10*6/uL Low 4.20-6.00 [facility] Comment on above: Performed By: #### P T, PTT, AMYL, CMP, LIPA, PHOS ####[place] [address]#### TRANSF ####[place] [phone] Hematocrit (HCT) 24.3 % Low 39.0-51.0 [facility] Comment on above: Performed By: #### P T, PTT, AMYL, CMP, LIPA, PHOS ####[place] [address]#### TRANSF ####[place] [phone] Hemoglobin mass conc (Bld) 7.8 g/dL Low 13.0-17.0 [facility] Comment on above: Performed By: #### P T, PTT, AMYL, CMP, LIPA, PHOS ####[place] [address]#### TRANSF ####[place] [address] Lymphocytes 1.56 10*3/uL Normal 1.00-4.00 [facility] Comment on above: Performed By: #### P T, PTT, AMYL, CMP, LIPA, PHOS ####[place] [phone]#### TRANSF ####[place] [phone] Lymphocytes/100 leukocytes 24.1 % Normal [facility] Comment on above: Performed By: #### P T, PTT, AMYL, CMP, LIPA, PHOS ####[place] [address]#### TRANSF ####[place] [phone] MCH 24.9 pG Low 26.0-34.0 [facility] Comment on above: Performed By: #### P T, PTT, AMYL, CMP, LIPA, PHOS ####[place] [address]#### TRANSF ####[place] [phone] MCHC mass conc (RBC) 32.1 g/dL Normal 30.5-36.0 [facility] Comment on above: Performed By: #### P T, PTT, AMYL, CMP, LIPA, PHOS ####[place] [address]#### TRANSF ####[place] [phone] MCV 77.6 fL Low 80.0-100.0 [facility] Comment on above: Performed By: #### P T, PTT, AMYL, CMP, LIPA, PHOS ####[place] [address]#### TRANSF ####[place] [phone] Monocytes/100 leukocytes 7.6 % Normal [facility] Comment on above: Performed By: #### P T, PTT, AMYL, CMP, LIPA, PHOS ####[place] [phone]#### TRANSF ####[place] [phone] Neutrophils/100 WBC Auto (Bld) 64.5 % Normal [facility] Comment on above: Performed By: #### P T, PTT, AMYL, CMP, LIPA, PHOS ####[place] [address]#### TRANSF ####[place] [phone] Platelet mean volume (PMV) 9.1 fL Normal 9.0-12.7 [facility] Comment on above: Performed By: #### P T, PTT, AMYL, CMP, LIPA, PHOS ####[place] [address]#### TRANSF ####[place] [phone] Platelets 207 10*3/uL Normal 150-400 [facility] Comment on above: Performed By: #### P T, PTT, AMYL, CMP, LIPA, PHOS ####[place] [address]#### TRANSF ####[place] [phone] WBC (Leukocytes) 6.47 10*3/uL Normal 3.70-11.00 [facility] Comment on above: Performed By: #### P T, PTT, AMYL, CMP, LIPA, PHOS ####[address]#### TRANSF ####[place] [phone] CONSULT PROGon 10-02-2017 CONSULT PROG HNO ID: [id number] thor: Matilda Malloy: AnesthesiologyAuthor Type: AnesthesiologistType: Consult Progress NoteFiled: 10/02/2017 9:33 AMNote Text:APS EPIDURAL CATHETER PROGRESS NOTESERVICE DATE: 10/02/2017SERVICE TIME: 9:27 AMPRIMARY SERVICE: HBSSubjectiveINTERVAL HPI:Rocio Jackson is a 62 year old male who is POD #2 S/P WhipplePatient also has an IV SUPERVISOR LAUNDRY: NoIV Line Appears Intact YesPain at Surgical Site: Yes, minimalCondition of Surgical Site: c/d/iOther Locations of Pain: NoPain Score at Rest: 0Pain Score with Movement (cough, deep breathe, ambulation, etc): 1Functional Status: Can cough AND deep breath adequately.Character: unable to describe painDuration: intermittentRadiation: NoRelieved: Yes - Epidural bolusPatient Satisfied with Pain Control: YesOvernight Events: NoneOvernight Pain Interventions: NoDiet: Tube Feedings, just startedObjectiveALLERGIESNo Known AllergiesPatient is Intubated and Sedated: No.Numbness?: NoWeakness?: NoNausea?: NoVomitting?: NoPruritis?: NoBack pain?: NoHeadache?: NoSedation?: NoConfusion/Delirium?: NoOther: noneEpidural Location: ThoracicEpidural Catheter Placed: Day of surgeryMEDICATIONS:I have interrogated the SUPERVISOR LAUNDRY pump(s) for the correct settings and solution:Yes.EPIDURAL MEDICATIONS AND SUPERVISOR LAUNDRY SETTINGS: Other: bupivicaine + hydromorphoneBasal Rate: 4 mL/hr.Patient Demand Bolus: 3 mL.Lockout Interval: 15 Minutes.Additional Medication(s) GIven: See BelowAnticoagulation Therapy: noneCurrent hospital medications:magnesium sulfate in water 2 g in sterile water 50 ml 2 g INTRAVENOUS ONCEsodium phosphate 15 mmol in D5W 250 mL 15 mmol INTRAVENOUS ONCEdocusate sodium 100 mg cap(s) (COLACE) 100 mg ORAL BIDphenol 1 [place] (CHLORASEPTIC) 1 [place] MUCOUS MEMBRANE (TOPICAL MOUTH ANDTHROAT) q 2 H PRN0.9% NaCl 2-10 mL 2-10 mL INTRAVENOUS q 12 Hnaloxone 0.2 mg injection (NARCAN) 0.2 mg INTRAVENOUS PRNacetaminophen 500-1,000 mg tab(s) (TYLENOL) 500-1,000 mg ORAL q 4 H PRNbupivacaine(PF) 0.1 %, HYDROmorphone (PF) 10 mcg/mL in NaCl 0.9% 300 mLepidural EPIDURAL CONTINUOUSnalbuphine 5 mg injection (NUBAIN) 5 mg INTRAVENOUS q 3 H PRNatorvastatin 40 mg tab(s) (LIPITOR) 40 mg ORAL AT BEDTIMEaspirin, enteric coated 162 mg tab(s) (ASPIRIN, ENTERIC COATED) 162 mgORAL DAILYnitroglycerin sublingual 0.4 mg tab(s) (NITROQUICK) 0.4 mg SUBLINGUAL q 5MIN PRNdextrose 40 % 15 g 15 g ORAL PRNglucagon 1 mg injection (GLUCAGEN) 1 mg INTRAMUSCULAR PRNdextrose 50% in water 25 mL syringe 12.5 g INTRAVENOUS PRNpotassium chloride ER 20-40 mEq tab(s) (K-DUR, KLOR-CON) 20-40 mEq ORALPRNpotassium chloride iv piggyback 20 mEq/100 mL 20 mEq INTRAVENOUS PRNmagnesium sulfate in water 2 g in sterile water 50 ml 2 g INTRAVENOUSPRN(NO DISPENSE)sodium phosphate 45 mmol in NaCl 0.9% 250 mL 45 mmol INTRAVENOUS PRN(NODISPENSE)ondansetron (PF) 4 mg injection (ZOFRAN) 4 mg INTRAVENOUS q 6 H PRNacetaminophen 1,000 mg tab(s) (TYLENOL) 1,000 mg ORAL q 6 Hketorolac 15 mg injection (TORADOL) 15 mg INTRAVENOUS q 6 Hibuprofen 800 mg tab(s) (MOTRIN) 800 mg ORAL q 8 HHYDROmorphone SUPERVISOR LAUNDRY 0.5 mg/mL in NaCl 0.9% 100 mL INTRAVENOUS CONTINUOUSHYDROmorphone 0.5 mg/mL SUPERVISOR LAUNDRY CLINICIAN DOSE 0.2-0.4 mg 0.2-0.4 mgINTRAVENOUS (PACU) PRNHYDROmorphone 0.5 mg/mL SUPERVISOR LAUNDRY CLINICIAN DOSE 0.2 mg 0.2 mg INTRAVENOUS q 6 HPRNinsulin lispro injection (rapid acting) (HumaLOG) SUBCUTANEOUS q 6 Hheparin 5,000 Units injection 5,000 Units SUBCUTANEOUS q 12 Hmetoclopramide HCl 10 mg injection (REGLAN) 10 mg INTRAVENOUS q 6 H PRNPHYSICAL EXAM:Patient Vitals for the past 4 hrs: BP Temp Temp src Pulse Resp SpO2 Dquywp20/06/18 0800 134/79 36.7 ?C (98 ?F) Oral 88 19 98 % -10/02/17 0700 - - - 78 15 97 % -10/02/17 06 - - - 81 17 95 % 88.8 kg (195 lb 12.3 oz)NEUROLOGICAL: SENSORY EXAM: Other Limb: intact MOTOR EXAM: Other Limb: intactAFFECT: Awake, alert and oriented.GENERAL: Appears comfortable and in good spirits.RESPIRATORY EXAM: Respirations: Breathing appears normal Thoracostomy Tube: NoGASTROINTESTINAL EXAM: Bowel Sounds: hypoactiveLAB RESULTS:Diagnostic tests reviewed for today's visit:Most recent labs and imaging results.APTT 25.9 09/30/2017PT Sec 12.2 09/30/2017PT INR 1.2 09/30/2017Hemoglobin 7.8 10/02/2017Hematocrit 24.3 10/02/2017Platelet Count 207 10/02/2017Creatinine 0.64 10/02/2017BUN 22 10/02/2017Assessment/PlanPatie nt is being seen for pain as described in HPI above. Pain wellcontrolled with current epidural SUPERVISOR LAUNDRY.Assessment: Pain adequately controlled.Patient satisfied with analgesic regimen..Plan of Care: Continue epidural analgesia to promote comfort, mobility,and pulmonary toilet.Plan to start roxicodone tomorrow once the patient continue to tolerateenteral nutrition and hold epidural catheter.SIGNATURE: Matilda Raya MD PATIENT NAME: Rocio JacksonDATE: October 02, 2017 : 9:27 AM PAGER/CONTACT #: Normal [facility] Comp Metabolic Panelon 10-02 Alanine aminotransferase (ALT) 27 U/L Normal 5-50 [facility] Comment on above: Performed By: #### P T, PTT, AMYL, CMP, LIPA, PHOS ####[facility] [place], [place] [phone]#### TRANSF ####[facility] [place], [place] [phone] Albumin 2.5 g/dL Low 3.5-5.0 [facility] Comment on above: Performed By: #### P T, PTT, AMYL, CMP, LIPA, PHOS ####[place] [address]#### TRANSF ####[place] [phone] Alkaline phosphatase (ALP) 68 U/L Normal 40-150 [facility] Comment on above: Performed By: #### P T, PTT, AMYL, CMP, LIPA, PHOS ####[place] [address]#### TRANSF ####[place] [phone] Anion gap 6 mmol/L Low 9-18 [facility] Comment on above: Performed By: #### P T, PTT, AMYL, CMP, LIPA, PHOS ####[place] [address]#### TRANSF ####[place] [phone] Aspartate aminotransferase (AST) 23 U/L Normal 7-40 [facility] Comment on above: Performed By: #### P T, PTT, AMYL, CMP, LIPA, PHOS ####[place] [address]#### TRANSF ####[place] [phone] Bilirubin (total) 0.3 mg/dL Normal 0.0-1.5 [facility] Comment on above: Performed By: #### P T, PTT, AMYL, CMP, LIPA, PHOS ####[place] [address]#### TRANSF ####[place] [phone] Calcium 8.3 mg/dL Low 8.5-10.5 [facility] Comment on above: Performed By: #### P T, PTT, AMYL, CMP, LIPA, PHOS ####[place] [address]#### TRANSF ####[place] [phone] Chloride 103 mmol/L Normal 98-110 [facility] Comment on above: Performed By: #### P T, PTT, AMYL, CMP, LIPA, PHOS ####[place] [address]#### TRANSF ####[place] [phone] CO2 26 mmol/L Normal 23-32 [facility] Comment on above: Performed By: #### P T, PTT, AMYL, CMP, LIPA, PHOS ####[place] [address]#### TRANSF ####[place] [phone] Creatinine 0.64 mg/dL Low 0.70-1.40 [facility] Comment on above: Performed By: #### P T, PTT, AMYL, CMP, LIPA, PHOS ####[place] [address]#### TRANSF ####[place] [address] eGFR (non-black) mL/min/{1.73_m2} Normal >60 [facility] Comment on above: Performed By: #### P T, PTT, AMYL, CMP, LIPA, PHOS ####[place] [address]#### TRANSF ####[place] [phone] Glucose mass conc 154 mg/dL High 65-100 [facility] Comment on above: Performed By: #### P T, PTT, AMYL, CMP, LIPA, PHOS ####[place] [address]#### TRANSF ####[place] [phone] Potassium molar conc 4.2 mmol/L Normal 3.5-5.0 [facility] Comment on above: Performed By: #### P T, PTT, AMYL, CMP, LIPA, PHOS ####[place] [address]#### TRANSF ####[place] [phone] Protein 5.3 g/dL Low 6.0-8.4 [facility] Comment on above: Performed By: #### P T, PTT, AMYL, CMP, LIPA, PHOS ####[place] [address]#### TRANSF ####[place] [phone] Sodium 135 mmol/L Normal 135-146 [facility] Comment on above: Performed By: #### P T, PTT, AMYL, CMP, LIPA, PHOS ####[place] [address]#### TRANSF ####[place] [phone] Urea nitrogen 22 mg/dL Normal 10-25 [facility] Comment on above: Performed By: #### P T, PTT, AMYL, CMP, LIPA, PHOS ####[place] [address]#### TRANSF ####[place] [phone] Magnesiumon 10-02-2017 Magnesium 1.9 mg/dL Normal 1.7-2.6 [facility] Comment on above: Performed By: #### P T, PTT, AMYL, CMP, LIPA, PHOS ####[facility] [place], [place] [phone]#### TRANSF ####[facility] [address] [place], [place] [phone] NURSING PROGon 10-02-2017 NURSING PROG HNO ID: [id number] thor: Luis (Rn) Clayton Salinasice: (none)Author Type: Registered NurseType: Nursing Progress NoteFiled: 10/02/2017 6:43 PMNote Text: Nursing Progress NotePatient Name: Rocio JacksonMRN: [id number] Location: [facility]/[id number] ____Daily Note:1600: pt transferred from [facility] to [facility]. Pt sitting in chair.Blood transfusion infusing well without difficulty. Nurse emptied JPdrains x2, see IANDO. Pt states he has no pain at this time. Pt has abuprivacaine-hydromorphone epidural. Epidural control in hand. Willmonitor, call light in reach.1833: blood transfusion completed. Pt tolerated well.This note was completed by: Luis Salinas RN [facility] NURSING PROG HNO ID: [id number] thor: Sabrina KenRn) MOUSTAPHA Cornejoervice: NursingAuthor Type: Registered NurseType: Nursing Progress NoteFiled: 10/02/2017 2:48 PMNote Text: Nursing Progress NotePatient Name: Rocio JacksonN: [id number] Location: /TU-WQH-88 ___Daily Note:0700 bedside report received from KEVIN Valerio. Gtt checked.Patient [id number] patient assessed see [id number] OT at bedside assessing patient.[id number] patient walked with a walker and OT 1 [id number] patient tolerates chair 1 assist up to stand and march in [id number] called report to [id number] note was completed by: Sabrina Cornejo RN [facility] PROGRESSon 10-02-2017 PROGRESS HNO ID: [id number] thor: Rick Diaze: Critical CareAuthor Type: PhysicianType: Progress NotesFiled: 10/02/2017 12:47 PMNote Text:Critical Care Progress NoteService Date: October 02, 2017Assessment and Plan:Rocio Jackson is a 62 year old male with history of DM, HTN, CAD, s/p PCIwith stent placement, cholecystectomy c/b leak 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 POD #2 ClassicWhipple. Doing well, continue pathway?Indication for ICU admission: hemodynamic monitoring in the setting of theabove surgery?Neuro:- Analgesia: Tylenol, toradol/Motrin, Ambreen, bupivacaine epidural removed?Cardiovascular:- ASA 162- statin- ICU monitoring d/c A-line- IV Access: pIV, d/c RIJ?Respiratory:- Incentive spirometry?GI:- Nutrition/Diet: TFs + clears.?Renal: (Baseline sCr: 0.65)- Urine output 40-50 cc/hr. sCr 0.64. [place] not indicated.- IVF LR at 125- Electrolytes replete Ca, K >4, Phos >3, Mag >2.?Heme/ID:- Hemoglobin 7.8. No evidence of bleeding. but will transfuse 1u pRBC perprimary- WBC 6.4- Abx: None- DVT Prophylaxis: IPCs, SQH?Endo:- Glucose 154.?Wound Care: Incisional dressing.- Drain ROMINA to bulb suction?MSK- Activity Level: OOB/Mobilize- PT/OT?Dispo: RNF today?Plan to be discussed with ICU Staff Dr. Boothe.Kolby Brown MDWiregrass Medical Center Surgery[C]: [phone] [P]: [id number]: 10/02/2017Time: 10:32 AMSubjective:Interval Events: NAEON. TFs at goal.Physical Exam:BP 134/79 Pulse 88 Temp 36.7 ?C (98 ?F) (Oral) Resp 19 Ht 172.7 cm(5' 7.99 ) Wt 88.8 kg (195 lb 12.3 oz) SpO2 98% BMI 29.77 kg/s4SULZHGP: Well appearing 62 year old male in no distressNEURO: AAOx3, UQK89SEEGM: Atraumatic, corpak in palceCHEST: nonlabored breathing on RA. NL rate and rhythmABDOMEN: Soft, non-distended, mildly tenderEXTREMITIES: Warm well perfused, no deformitiesLabs:CBC, BMP, MG, PHOSRecent Labs 10/01/1817WBC 6.47 -- 8.38 8.24 7.14 7.49 4.87HB 7.8* -- 8.8* 9.4* 10.1* 8.6* 7.9*HCT 24.3* -- 27.4* 28.9* 30.7* 29.1* 25.0*PLT 207 -- 230 231 242 354 495*NA 135 -- 140 -- 140 138 137K 4.2 -- 4.8 -- 4.9 4.7 4.3CHLOR 103 -- 105 -- 105 98 101CO2 26 -- 23 -- 24 28 29BUN 22 -- 20 -- 18 13 11CREAT 0.64* -- 0.78 -- 0.65* 0.68* 0.54*GLUC 154* -- 145* -- 157* 110* 149*CA 8.3* -- 7.7* -- 7.8* 9.7 8.0*MG 1.9 2.1 1.3* -- -- -- 2.3P 2.3* 3.0 4.4 -- -- -- 2.0*Liver Function, Amylase, AND LipaseRecent Labs 10/01/1802/29/284050JBWTC 5.3* 5.1* 5.8* 7.8ALB 2.5* 2.6* 3.1* 3.7ALT 27 35 46 38AST 23 32 48* 37ALKPHOS 68 70 91 160*TBILI 0.3 0.3 0.5 0.3LACT -- -- 2.3* --CoagsRecent Labs 09/24/18085APTT 25.9 24.9 -- -- 39.8* 31.6INR 1.2 1.1 1.0 2.0* 2.0* 1.5*Intake and Output:Date 10/01/17 07 - 10/02/17 0659 10/02/17 07 - 10/03/17 0659Shift 4639-3608 9370-1730 5374-5417 24 Hour Total 5742-6480 4206-53277519-5521 24 Hour TotalINTAKE PO 0 97 482 579 PO 0 0 0 Tube Feed Intake (GI Feed/Drain 09/30/17 Small Bore Feeding Right Naris10 Fr) 97 482 579 IV 100 2759 59.6 2918.6 LR 2759 59.6 2818.6 Calcium IVPB 100 100 Irrigants 50 30 60 140 60 60 Irrigant/Flush Amount In ( Indwelling Urinary Catheter 09/30/17 0909Foley 16 Fr) 0 0 0 Irrigant/Flush Amount In (GI Feed/Drain 09/30/17 Small Bore FeedingRight Naris 10 Fr) 50 30 60 140 60 60 Irrigant/Flush Amount In (Drain/Tube 09/30/17 1626 Chandana Howard LeftAbdomen Drain #2) 0 0 Shift Total 150 2886 601.6 3637.6 60 60OUTPUT Urine 310 221 199 8589 75 75 Tube Output ( Indwelling Urinary Catheter 09/30/17 0909 [place] 16Fr) 310 988 944 5871 75 75 Tubes 70 135 35 240 Drain/Tube Output (Drain/Tube 09/30/17 1626 Chandana Howard Left AbdomenDrain #2) 10 25 10 45 Drain/Tube Output (Drain/Tube 09/30/17 1627 Chandana Howard Right AbdomenDrain #1) 60 110 25 195 Output (GI Feed/Drain 09/30/17 Small Bore Feeding Right Naris 10 Fr) 0 0 # of BMs Number of BMs 0 x 0 x Stool 0 0 Liquid BM (mL) 0 0 Shift Total 380 990 759 0824 75 75Weight (kg) 81.1 81.1 88.8 88.8 88.8 88.8 88.8 88.8Current Medications:Current hospital medications:magnesium sulfate in water 2 g in sterile water 50 ml 2 g INTRAVENOUS ONCEsodium phosphate 15 mmol in D5W 250 mL 15 mmol INTRAVENOUS ONCEdocusate sodium 100 mg cap(s) (COLACE) 100 mg ORAL BIDphenol 1 [place] (CHLORASEPTIC) 1 [place] MUCOUS MEMBRANE (TOPICAL MOUTH ANDTHROAT) q 2 H PRN0.9% NaCl 2-10 mL 2-10 mL INTRAVENOUS q 12 Hnaloxone 0.2 mg injection (NARCAN) 0.2 mg INTRAVENOUS PRNacetaminophen 500-1,000 mg tab(s) (TYLENOL) 500-1,000 mg ORAL q 4 H PRNbupivacaine(PF) 0.1 %, HYDROmorphone (PF) 10 mcg/mL in NaCl 0.9% 300 mLepidural EPIDURAL CONTINUOUSnalbuphine 5 mg injection (NUBAIN) 5 mg INTRAVENOUS q 3 H PRNatorvastatin 40 mg tab(s) (LIPITOR) 40 mg ORAL AT BEDTIMEaspirin, enteric coated 162 mg tab(s) (ASPIRIN, ENTERIC COATED) 162 mgORAL DAILYnitroglycerin sublingual 0.4 mg tab(s) (NITROQUICK) 0.4 mg SUBLINGUAL q 5MIN PRNdextrose 40 % 15 g 15 g ORAL PRNglucagon 1 mg injection (GLUCAGEN) 1 mg INTRAMUSCULAR PRNdextrose 50% in water 25 mL syringe 12.5 g INTRAVENOUS PRNpotassium chloride ER 20-40 mEq tab(s) (K-DUR, KLOR-CON) 20-40 mEq ORALPRNpotassium chloride iv piggyback 20 mEq/100 mL 20 mEq INTRAVENOUS PRNmagnesium sulfate in water 2 g in sterile water 50 ml 2 g INTRAVENOUSPRN(NO DISPENSE)sodium phosphate 45 mmol in NaCl 0.9% 250 mL 45 mmol INTRAVENOUS PRN(NODISPENSE)ondansetron (PF) 4 mg injection (ZOFRAN) 4 mg INTRAVENOUS q 6 H PRNacetaminophen 1,000 mg tab(s) (TYLENOL) 1,000 mg ORAL q 6 Hketorolac 15 mg injection (TORADOL) 15 mg INTRAVENOUS q 6 Hibuprofen 800 mg tab(s) (MOTRIN) 800 mg ORAL q 8 HHYDROmorphone SUPERVISOR LAUNDRY 0.5 mg/mL in NaCl 0.9% 100 mL INTRAVENOUS CONTINUOUSHYDROmorphone 0.5 mg/mL SUPERVISOR LAUNDRY CLINICIAN DOSE 0.2-0.4 mg 0.2-0.4 mgINTRAVENOUS (PACU) PRNHYDROmorphone 0.5 mg/mL SUPERVISOR LAUNDRY CLINICIAN DOSE 0.2 mg 0.2 mg INTRAVENOUS q 6 HPRNinsulin lispro injection (rapid acting) (HumaLOG) SUBCUTANEOUS q 6 Hheparin 5,000 Units injection 5,000 Units SUBCUTANEOUS q 12 Hmetoclopramide HCl 10 mg injection (REGLAN) 10 mg INTRAVENOUS q 6 H PRNPrior to Admission Medications:apixaban (ELIQUIS) 5 mg tab(s) Take 1 tablet by mouth twice daily.metoprolol tartrate, short acting, (LOPRESSOR) 50 mg tablet Take 1 tabletby mouth every 12 hours.acetaminophen (TYLENOL) 325 mg tablet Take 2 tablets by mouth every 6hours as needed.aspirin, enteric coated (ECOTRIN LOW STRENGTH) 81 mg EC tablet Take 162 mgby mouth once daily.atorvastatin (LIPITOR) 40 mg tablet Take 40 mg by mouth daily at bedtime.metFORMIN (GLUCOPHAGE) 1,000 mg tablet Take 1,000 mg by mouth twice dailywith meals.Omeprazole Magnesium 20 mg cpDR Take 20 mg by mouth twice daily.nitroglycerin sublingual (NITROSTAT) 0.4 mg SL tablet Dissolve 0.4 mgunder the tongue every 5 minutes as needed.sAXagliptin (ONGLYZA) 5 mg tab Take by mouth once daily.[facility] STAFF PHYSICIAN SUPERVISING RESIDENTI have reviewed the progress note obtained and documented by the resident.I have discussed the case and the plan and management of the patient'scare with the ICU team AND HPB.IMPRESSION AND PLAN: As annotated in the above note. Continuedsatisfactory postop course so far. No problems overnight. Tolerating tubefeeds; cautiously advancing PO intake to clear liquids. Try to increaseactivity. Transfer to surgical floor when bed available. SIGNATURE: Rick Boothe, MDDATE of SERVICE: 10/02/2017TIME of SERVICE: 12:44 PM [facility] PROGRESS HNO ID: [id number] thor: Michael Cedillo) AugustinService: General SurgeryAuthor Type: PhysicianType: Progress NotesFiled: 10/02/2017 6:09 PMNote Text:General Surgery Progress NoteService Date: October 02, 2017Assessment and Plan: Rocio Jackson is a 62 year old male with history ofHTN, DM, CAD s/p PCI, who underwent a classic whipple for an obstructingduodenal mass 09/30, who was admitted to the SICU for postoperative care.- OOB as tolerated- BPH, IS, wean supplemental O2 as tolerated- advance to clear liquids- tube feeds, severe protein-calorie malnutrition- will recheck CBC at 6pm, give 1U RBCs at that 2pm- IPCs, SQH- anticipate transfer to [facility] to be discussed with staffSubjective:No acute events overnight. Tolerated sips of liquids no n/v. No flatus orBM.Physical Exam:BP 134/79 Pulse 88 Temp 36.7 ?C (98 ?F) (Oral) Resp 19 Ht 172.7 cm(5' 7.99 ) Wt 88.8 kg (195 lb 12.3 oz) SpO2 98% BMI 29.77 kg/i9CSNIXHD: no acute distressABDOMEN: soft, diffusely tender, nondistended. Incision c/d/i. Foleydraining yellow-red urine. Both JPs with serosanguinous fluid.Labs:CBC, BMP, MG, PHOSRecent Labs 10/01/1817WBC 6.47 -- 8.38 8.24 7.14 7.49 4.87HB 7.8* -- 8.8* 9.4* 10.1* 8.6* 7.9*HCT 24.3* -- 27.4* 28.9* 30.7* 29.1* 25.0*PLT 207 -- 230 231 242 354 495*NA 135 -- 140 -- 140 138 137K 4.2 -- 4.8 -- 4.9 4.7 4.3CHLOR 103 -- 105 -- 105 98 101CO2 26 -- 23 -- 24 28 29BUN 22 -- 20 -- 18 13 11CREAT 0.64* -- 0.78 -- 0.65* 0.68* 0.54*GLUC 154* -- 145* -- 157* 110* 149*CA 8.3* -- 7.7* -- 7.8* 9.7 8.0*MG 1.9 2.1 1.3* -- -- -- 2.3P 2.3* 3.0 4.4 -- -- -- 2.0*Liver Function, Amylase, AND LipaseRecent Labs 10/01/1802TPROT 5.3* 5.1* 5.8* 7.8ALB 2.5* 2.6* 3.1* 3.7ALT 27 35 46 38AST 23 32 48* 37ALKPHOS 68 70 91 160*TBILI 0.3 0.3 0.5 0.3LACT -- -- 2.3* --CoagsRecent Labs 09/24/18085APTT 25.9 24.9 -- -- 39.8* 31.6INR 1.2 1.1 1.0 2.0* 2.0* 1.5*Intake and Output:Date 10/01/17699 - 10/02/17 0659 10/02/17699 - 10/03/17 0659Shift 7724-2599 6801-1158 1613-0027 24 Hour Total 4479-6528 2325-62076360-3809 24 Hour TotalINTAKE PO 0 97 482 579 PO 0 0 0 Tube Feed Intake (GI Feed/Drain 09/30/17 Small Bore Feeding Right Naris10 Fr) 97 482 579 IV 100 2759 59.6 2918.6 LR 2759 59.6 2818.6 Calcium IVPB 100 100 Irrigants 50 30 60 140 60 60 Irrigant/Flush Amount In ( Indwelling Urinary Catheter 09/30/17 0909Foley 16 Fr) 0 0 0 Irrigant/Flush Amount In (GI Feed/Drain 09/30/17 Small Bore FeedingRight Naris 10 Fr) 50 30 60 140 60 60 Irrigant/Flush Amount In (Drain/Tube 09/30/17 1626 Chandana Howard LeftAbdomen Drain #2) 0 0 Shift Total 150 2886 601.6 3637.6 60 60OUTPUT Urine 310 849 755 1478 75 75 Tube Output ( Indwelling Urinary Catheter 09/30/17 0909 [place] 16Fr) 310 046 774 4525 75 75 Tubes 70 135 35 240 Drain/Tube Output (Drain/Tube 09/30/17 1626 Chandana Howard Left AbdomenDrain #2) 10 25 10 45 Drain/Tube Output (Drain/Tube 09/30/17 1627 Chandana Howard Right AbdomenDrain #1) 60 110 25 195 Output (GI Feed/Drain 09/30/17 Small Bore Feeding Right Naris 10 Fr) 0 0 # of BMs Number of BMs 0 x 0 x Stool 0 0 Liquid BM (mL) 0 0 Shift Total 380 510 985 1981 75 75Weight (kg) 81.1 81.1 88.8 88.8 88.8 88.8 88.8 88.8Current Medications:Current hospital medications:magnesium sulfate in water 2 g in sterile water 50 ml 2 g INTRAVENOUS ONCEsodium phosphate 15 mmol in D5W 250 mL 15 mmol INTRAVENOUS ONCEdocusate sodium 100 mg cap(s) (COLACE) 100 mg ORAL BIDphenol 1 [place] (CHLORASEPTIC) 1 [place] MUCOUS MEMBRANE (TOPICAL MOUTH ANDTHROAT) q 2 H PRN0.9% NaCl 2-10 mL 2-10 mL INTRAVENOUS q 12 Hnaloxone 0.2 mg injection (NARCAN) 0.2 mg INTRAVENOUS PRNacetaminophen 500-1,000 mg tab(s) (TYLENOL) 500-1,000 mg ORAL q 4 H PRNbupivacaine(PF) 0.1 %, HYDROmorphone (PF) 10 mcg/mL in NaCl 0.9% 300 mLepidural EPIDURAL CONTINUOUSnalbuphine 5 mg injection (NUBAIN) 5 mg INTRAVENOUS q 3 H PRNatorvastatin 40 mg tab(s) (LIPITOR) 40 mg ORAL AT BEDTIMEaspirin, enteric coated 162 mg tab(s) (ASPIRIN, ENTERIC COATED) 162 mgORAL DAILYnitroglycerin sublingual 0.4 mg tab(s) (NITROQUICK) 0.4 mg SUBLINGUAL q 5MIN PRNdextrose 40 % 15 g 15 g ORAL PRNglucagon 1 mg injection (GLUCAGEN) 1 mg INTRAMUSCULAR PRNdextrose 50% in water 25 mL syringe 12.5 g INTRAVENOUS PRNpotassium chloride ER 20-40 mEq tab(s) (K-DUR, KLOR-CON) 20-40 mEq ORALPRNpotassium chloride iv piggyback 20 mEq/100 mL 20 mEq INTRAVENOUS PRNmagnesium sulfate in water 2 g in sterile water 50 ml 2 g INTRAVENOUSPRN(NO DISPENSE)sodium phosphate 45 mmol in NaCl 0.9% 250 mL 45 mmol INTRAVENOUS PRN(NODISPENSE)ondansetron (PF) 4 mg injection (ZOFRAN) 4 mg INTRAVENOUS q 6 H PRNacetaminophen 1,000 mg tab(s) (TYLENOL) 1,000 mg ORAL q 6 Hketorolac 15 mg injection (TORADOL) 15 mg INTRAVENOUS q 6 Hibuprofen 800 mg tab(s) (MOTRIN) 800 mg ORAL q 8 HHYDROmorphone SUPERVISOR LAUNDRY 0.5 mg/mL in NaCl 0.9% 100 mL INTRAVENOUS CONTINUOUSHYDROmorphone 0.5 mg/mL SUPERVISOR LAUNDRY CLINICIAN DOSE 0.2-0.4 mg 0.2-0.4 mgINTRAVENOUS (PACU) PRNHYDROmorphone 0.5 mg/mL SUPERVISOR LAUNDRY CLINICIAN DOSE 0.2 mg 0.2 mg INTRAVENOUS q 6 HPRNinsulin lispro injection (rapid acting) (HumaLOG) SUBCUTANEOUS q 6 Hheparin 5,000 Units injection 5,000 Units SUBCUTANEOUS q 12 Hmetoclopramide HCl 10 mg injection (REGLAN) 10 mg INTRAVENOUS q 6 H PRNSignature: Jennifer Adan, MDDate: October 02, 2017Time: 9:55 AMPatient Name: Rocio TorresschPETRONA: [id number]*Please page the web services professional pager from 6pm-6am and all day on weekends* [facility] Phosphoruson 10-02-2017 Phosphate 2.3 mg/dL Low 2.5-4.5 [facility] Comment on above: Performed By: #### P T, PTT, AMYL, CMP, LIPA, PHOS ####[facility] [place], [place] [phone]#### TRANSF ####[facility] [address] [place], [place] [phone] THERAPY NTon 10-02-2017 THERAPY NT HNO ID: [id number] thor: Jacqueline (Ot) JeancarlosService: Occupational TherapyAuthor Type: Occupational TherapistType: Therapy (PT/OT/Speech/Resp)Filed: 10/02/2017 8:55 AMNote Text:Occupational Therapy EvaluationSERVICE DATE: 10/02/2017SERVICE TIME: 08 to 842ROOM: [id number] Discharge Disposition: Acute RehabJustification For Post Acute Needs: Anticipate patient will tolerate 3hours of daily therapy at the time of admission to post-acute setting;Goodfamily support;Good premorbid functional status;Good sittingtolerance;Living the community premorbidly;Motivated;Shawn salgado toparticipateRecommended Discharge Equipment: To Be DeterminedOT Recommendations to Nursing: To Bathroom for ADL?s /and orToileting;With assist of 1 personOT 6 Clicks Score: 12Precautions/Activity Restrictions: Fall Risk;Lines/Tubes/DrainsPreca ution/Activity Restriction Comments: tube feed, mobilize ptASSESSMENT:62 yo patient admitted with duodenal CA s/p whipple procedure for anobstructing duodenal mass 09/30/17. Pt?s pertinent PMH includes: DM, HTN,CAD, glaucoma, MD, cholecystectomy c/b leak found to have duodenal massc/f malignancy. Pt presents with impaired self care task performance,decreased functional mobility, decreased strength/endurance, decreasedsafety. Patient has support from family, but the patient's current needsfor assist may exceed level of available support. Patient would benefitfrom skilled OT services to increase activity tolerance, independence andsafety with ADL performance, instruction of energy conservationtechniques, and improved balance with functional mobility tasks.Patient requires continued monitoring of vital signs due to fluctuationswith activity, functional mobility, and ADL's. Therapy willinstruct/educate the patient regarding safe dosing of activity.The patient presents with impaired cognitive and communication skills.Patient also has impaired judgment and insight into their deficits. Theseimpairments have the potential to impact therapy and limit progress. Assuch, the patient will require multiple cognitive strategies to reinforcelearning/safety regarding functional mobility and ADL's.Patient Disposition at Start of Session: Supine in BedPatient Disposition at End of Session: OOB in ChairTolerated Full SessionOccupational Therapy Problem List: Cognitive Deficit;SafetyDeficits;Impai red Self Care;Decreased Activity Tolerance;DecreasedStrength; Functional Mobility ImpairmentPatient /Caregiver Goals: Go HomeGoals for Plan of Care:Feeding with: Supervision (pending increased diet order)Grooming with: SupervisionUpper Body Bathing with: SupervisionUpper Body Dressing with: Minimal AssistanceLower Body Bathing with: Minimal AssistanceLower Body Dressing with: Moderate AssistanceToilet Hygiene with: Minimal AssistanceChair Transfer with: Minimal AssistanceToilet Transfer with: Minimal AssistanceIncreased Awareness of Cognitive Impairments as Related to ADL's/IADL's:DemonstratedReh ab Potential: GoodPLAN:Treatment Frequency (times per week): 2 Current admissionTreatment Interventions: Education;Self Care / Home Management;EnergyConservatio n Training;Strengthening;Funct ional Mobility Training;BalanceTraining;Cog nitive TrainingPlan of Care developed with: PatientTREATMENT INTERVENTIONS:Therapy Diagnosis: Reduced mobility-other;Decreased activities of dailyliving (ADL);Signs and Symptoms Involving Cognitive Functions andAwarenessInterventions Provided: Evaluation;Therapeutic Activity (17042)$ Evaluation-Low (38604) Billed Units: 1 unitTherapeutic Activity (10234) Treatment Minutes: 81 unitSkilled Intervention(s): Instructed patient in supine to sit pushing withupper extremities to sit up requiring max assist and mod verbal/tactilecues for hand placement and technique. Pt performs unsupported sittingbalance at EOB with SBA.Instruction in sit to and from stand technique with proper hand placementand body positioning at edge of bed/chair requiring mod assist and minverbal/tactile cues for hand placement and technique. Pt denies dizzinesswith positional changes.Education with functional transfer safety using ww with min assist and minverbal cues. Pt's vitals monitored and remaining stable throughoutsession. Pt positioned for comfort in chair with needs in reach.OT administers mini cog with pt scoring 1/5 demo'ing decreasedSTM/cognition which may affect pts ability to safely perform ADLs andIADLs. Recommend further skilled OT to address ADLs, cognition, safety,and functional mobility.Total Timed Code Treatment Minutes: 8Total Treatment Time (minutes): 23FUNCTIONAL G CODE:OT 6 Clicks Score: 12 (10/02/17819)Self Care Current Status (G8987): CL (10/02/17819)Self Care Goal Status (G8988): CK (10/02/17819)Based on clinical assessment and the score on the 6 Clicks FunctionalAssessment Tool, the G code and corresponding severity modifiers aredocumented above.SUBJECTIVE:Current Hospital Course: Chart reviewed; see aboveReason for Occupational Therapy Consult: s/p eleazaripple procedureRelevant Past Medical History: DM, HTN, CAD, glaucoma, MIPatient Report: I'm staying with my sister now. I will stay with herwhen I get out of here. Home EnvironmentPatient Lives With: Family (pt has been staying with his sister; plan toreturn at d/c)Assistance Available: PRNEntry To Home: StairsNumber Of Stairs Into Home: 1Number Of Stairs To Bed/Bath: 0Tub/Shower Type: tub showerLaundry: sister performedEquipment Owned: Cane;Standard WalkerPrior Functional Level: Required AssistanceAssistance Required With: Transportation;Shopping;Meal s;Cleaning;LaundryPrior Functional Level Comments: Per pt, has been staying with his sistersince d/c from SNF. Typically lives with his son and dtr. Pt rpeorting IndADLs and has assist with all IADLs. Works in [employer]. Amb Ind.OBJECTIVE:Orientation Deficits: ConfusedResponsiveness: AwakeFollows Commands: 2-step CommandsMemory Deficits: Short TermExecutive Function Deficits: Safety AwarenessSafety Awareness Deficit: Minimal impairmentMini Cog Score: 1 (10/02/17 0820)Vision Deficits: Wears glassesCURRENT FUNCTIONAL STATUS:Current Activities of Daily Living Assist LevelFeeding Total Assistance (tube feed)Grooming Stand By AssistanceBathing Upper Body Stand By AssistanceBathing Lower Body Maximal AssistanceDressing Upper Body Moderate AssistanceDressing Lower Body Total AssistanceToileting Total Assistance ([place])Instrumental Activities of Daily Living Assist LevelMeal/Beverage PrepLight CleaningLaundryMedication Management with StrategiesFunctional Mobility Assist LevelRollingSupine to Sit Maximal AssistanceSit to SupineScooting Moderate AssistanceSit to Stand Moderate AssistanceStand to Sit Moderate AssistanceBed to ChairToilet/CommodeFunctiona l Mobility Minimal Assistance Wheeled WalkerPlease see discipline specific clinical documentation flowsheet forcomplete details for this therapy evaluation/treatment.SIGNATU RE: Jacqueline Arshad OTR/L PATIENT NAME: Rocio JacksonDATE: October 02, 2017 : 8:50 AM PAGER: [phone] [facility] Type and Screenon 10-02-2017 ABO/RH(D) Positive [facility] Comment on above: Performed By: #### P T, PTT, AMYL, CMP, LIPA, PHOS ####[place] [address]#### TRANSF ####[place] [phone] Antibody Screen Negative [facility] Comment on above: Performed By: #### P T, PTT, AMYL, CMP, LIPA, PHOS ####[address]#### TRANSF ####[place] [phone] Amylaseon 10-01-2017 Amylase 151 U/L High 0-137 [facility] Comment on above: Performed By: #### P T, PTT, AMYL, CMP, LIPA, PHOS ####[place] [address]#### TRANSF ####[facility] [address] [place], [place] [phone] Amylase,Body Fluidon 018 Amylase 817 U/L Critically abnormal See Comment [facility] Comment on above: Result Comment: (NOT E)PLEURAL FLUIDS:Amylase measurement in pleural fluid is considered a useful test fordetecting amylase-rich pleural effusions, which may be caused byexudative conditions associated with pancreatitis, esophagealrupture, malignancy, pneumonia, and liver cirrhosis. A ratio ofpleural fluid amylase to a concurrent serum amylase >1 is defined asan amylase-rich pleural effusion.PERITONEAL FLUIDS AND DRAINAGE FLUIDS:Pancreatic damage causes extravasation of amylase from the exocrinecells into the peritoneal space. In cases of pancreatitis, fluidamylase should be at least several-fold times higher in fluid ofpancreatic origin compared to concurrent serum amylase values.PANCREATIC CYST FLUID:Pancreatic cyst fluid amylase may aid in characterizing tumors andshould be interpreted along with other clinical and laboratoryinformation.References:1. Billie FRITZ, Ian Diaz. Body fluid analysis: clinicalutility and applicability of published studies to guideinterpretation of todays laboratory testing in serous fluids. CritRev Clin Lab Sci, 2013;50(4-5):107-124.2. CLSI. Analysis of Body Fluids in Clinical Chemistry; ApprovedGuideline. CLSI document C49-A. SAIMA Contreras: Clinical LaboratoryStandards [place]; 2007.3. Kya EDUARDO, Angelia RC, Nimo DJ. Use of cyst fluid CEA,CA19-9, and amylase for evaluation of pancreatic lesions. ClinicalBiochemistry. 2009;42:1936-7111.This test was developed and its performance characteristicsdetermined by [facility]'s [facility] Pathology andLaboratory Medicine [place] ([facility]).It has not been cleared or approved by the FDA. [facility] is regulatedunder CLIA as qualified to perform high-complexity testing.This test is used for clinical purposes. It should not be regarded asinvestigational or for research. Performed By: #### P T, PTT, AMYL, CMP, LIPA, PHOS ####[facility] [place], [place] [phone]#### TRANSF ####[facility] [facility] [address] [place], [place] [phone] Amylase 1954 U/L Critically abnormal See Comment [facility] Comment on above: Result Comment: (NOT E)PLEURAL FLUIDS:Amylase measurement in pleural fluid is considered a useful test fordetecting amylase-rich pleural effusions, which may be caused byexudative conditions associated with pancreatitis, esophagealrupture, malignancy, pneumonia, and liver cirrhosis. A ratio ofpleural fluid amylase to a concurrent serum amylase >1 is defined asan amylase-rich pleural effusion.PERITONEAL FLUIDS AND DRAINAGE FLUIDS:Pancreatic damage causes extravasation of amylase from the exocrinecells into the peritoneal space. In cases of pancreatitis, fluidamylase should be at least several-fold times higher in fluid ofpancreatic origin compared to concurrent serum amylase values.PANCREATIC CYST FLUID:Pancreatic cyst fluid amylase may aid in characterizing tumors andshould be interpreted along with other clinical and laboratoryinformation.References:1. Billie FRITZ, Ian Diaz. Body fluid analysis: clinicalutility and applicability of published studies to guideinterpretation of todays laboratory testing in serous fluids. CritRev Clin Lab Sci, 2013;50(4-5):107-124.2. CLSI. Analysis of Body Fluids in Clinical Chemistry; ApprovedGuideline. CLSI document C49-A. SAIMA Contreras: Clinical LaboratoryStandards [place]; 2007.3. Kya EDUARDO, Angelia RC, Nimo DJ. Use of cyst fluid CEA,CA19-9, and amylase for evaluation of pancreatic lesions. ClinicalBiochemistry. 2009;42:1851-5741.This test was developed and its performance characteristicsdetermined by [facility]'s [facility] [place] (RT-PLMD).It has not been cleared or approved by the FDA. [facility] is regulatedunder CLIA as qualified to perform high-complexity testing.This test is used for clinical purposes. It should not be regarded asinvestigational or for research. Performed By: #### P T, PTT, AMYL, CMP, LIPA, PHOS ####[facility] [place], [place] [phone]#### TRANSF ####[facility] [address] [place], [place] [phone] Fluid Type Peritoneal Fluid Normal [facility] Comment on above: Performed By: #### P T, PTT, AMYL, CMP, LIPA, PHOS ####[facility] [place], [place] [phone]#### TRANSF ####[facility] [place], [place] [phone] Result Comment: LEFT CASE MGT INIT SANDRAon 2017 CASE MGT INIT SANDRA HNO ID: [id number] thor: Catherine Humphries (Rn) MOUSTAPHA Bradshawervice: Case ManagementAuthor Type: Registered NurseType: Care Mgt Initial AssessmentFiled: 10/01/2017 12:22 PMNote Text:CARE MANAGEMENT: ASSESSMENT AND DISCHARGE PLANSERVICE DATE: 10/01/2017SERVICE TIME: 11:13 amPRIUAB HOSPITAL CARE PHYSICIAN:Adriane Nichols, RAJEEVhone: [phone] STATUS: InpatientNeeds Prior to Discharge: To Be Determined;OT/PT EvaluationMEDICAL:Patient/Re presentative Stated Goals:To improve my functional statusTo return home to life as it [facility] Issues Impacting Discharge Plan: DM, HTNLast Admission Date: Previous admit date: 08/13/2017Is this Within the Past 30 days? NoAdvance Directive: Patient states that he is not interested in assigningHCPOA at this time.Health Literacy:1. How often do you need to have someone help you when you readinstructions, pamphlets, or other written material from your doctor orpharmacy? Rarely - 22. How confident are you filling out medical forms by yourself? Quite abit - 2If Patient scores > 3 on either question, the following interventions wereput into place:Patient did not score > 3FUNCTIONAL AND COGNITIVE/BEHAVIORALPRIOR TO ADMISSION:Baseline Mental Status: Alert AND Oriented, Person, Place , Time andSituationFunctional Status: Needs AssistanceDoes Patient Currently Receive Any Community Services or Home Care? HomeHealth Care Agency: [facility]; ; Active.Equipment Prior to Admission: Tub bench/chairWalkerHas the Patient Been in a Fdc Facility in the Past 30 days?Yes. Where and Dates: [facility] in [place] PHCAOT:Emily ing Arrangement: HomeLives With: Sister since his discharge from [facility] in August of 2017.Financial Resources: Patient is employedPrimary Contact: Extended Emergency Contact InformationPrimary Emergency Contact: Owen Muller: [place], [place] [address]Tdsa Qabbhmqb: SiblingSupportive: YesOther Important Patient Contacts: NoneCaregiver Assessment:Caregiver is ready, willing and able to meet the patient's needs asrecommended by the inter-professional team? YesPatient's transition needs and plan for meeting these needs: TBDDoes the patient have an acute stroke diagnosis, or has the patient had astroke during this admission? NoMedication Adherence:I am convinced of the importance of my prescription medication: Agreecompletely - 0I worry that my prescription medication will do more harm than good to meDisagree mostly - 0I feel financially burdened by my inr-mi-cqksye expenses for myprescription medication: Disagree mostly -0Patient is categorized as low risk < 2Are you interested in bedside delivery of your medications? NoFood Concerns:In the Last Month, Have You had Trouble Getting Food? No trouble gettingfoodDuring the Last Month, Have You Worried Whether Your Food Would Run OutBefore You Had Enough Money to Buy More? NoIs the Patient Psychosocially Complex? NoASSESSMENT AND PLAN:Medical Needs: 2 or more chronic diseasesPsychosocial Needs: NoneFREEDOM OF CHOICE EXPLAINED:Yes on 10/01/17POTENTIAL TRANSITION PLANSHome CareFifield OT/PTSkilled Nursing Facility/Intermediate Care FacilityCM met with patient at bedside. His two sisters were in the room at thetime, and patient approved their staying in the room during theassessment. 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 He currently lives with his sister who ishelping with his care since his discharge from [facility] in March [id number]. He is [facility] with [facility], and stated he washappy with their services. Patient will need a PT/OT evaluation todetermine skilled/safety needs. CM will continue to follow plan of care toassist with discharge planning.SIGNATURE: Catherine Bradshaw RN PATIENT NAME: Rocio Sibley: October 01, 2017 : 11:13 AM PAGER/CONTACT #: [phone] Normal [facility] CBC and Differentialon 10-01 Abs Baso <0.03 Normal <0.11 [facility] Comment on above: Performed By: #### P T, PTT, AMYL, CMP, LIPA, PHOS ####[place] [address]#### TRANSF ####[place] [address] [place] [phone] Abs [place] 0.60 k/uL Normal <0.87 [facility] Comment on above: Performed By: #### P T, PTT, AMYL, CMP, LIPA, PHOS ####[place] [address]#### TRANSF ####[place] [phone] Abs Neut 5.57 k/uL Normal 1.45-7.50 [facility] Comment on above: Performed By: #### P T, PTT, AMYL, CMP, LIPA, PHOS ####[place] [address]#### TRANSF ####[place] [phone] Basophils/100 WBC Auto (Bld) 0.0 % Normal [facility] Comment on above: Performed By: #### P T, PTT, AMYL, CMP, LIPA, PHOS ####[place] [address]#### TRANSF ####[place] [phone] DTYPE Auto Diff Normal [facility] Comment on above: Performed By: #### P T, PTT, AMYL, CMP, LIPA, PHOS ####[place] [address]#### TRANSF ####[place] [phone] Eosinophils 10*3/uL Normal <0.46 [facility] Comment on above: Performed By: #### P T, PTT, AMYL, CMP, LIPA, PHOS ####[place] [address]#### TRANSF ####[place] [phone] Eosinophils/100 leukocytes 0.0 % Normal [facility] Comment on above: Performed By: #### P T, PTT, AMYL, CMP, LIPA, PHOS ####[place] [address]#### TRANSF ####[place] [phone] Erythrocyte distribution width Auto Ratio (RBC) 16.4 % High 11.5-15.0 [facility] Comment on above: Performed By: #### P T, PTT, AMYL, CMP, LIPA, PHOS ####[place] [address]#### TRANSF ####[place] [phone] Erythrocytes (RBC) 3.53 10*6/uL Low 4.20-6.00 [facility] Comment on above: Performed By: #### P T, PTT, AMYL, CMP, LIPA, PHOS ####[place] [address]#### TRANSF ####[place] [phone] Hematocrit (HCT) 27.4 % Low 39.0-51.0 [facility] Comment on above: Performed By: #### P T, PTT, AMYL, CMP, LIPA, PHOS ####[place] [address]#### TRANSF ####[place] [phone] Hemoglobin mass conc (Bld) 8.8 g/dL Low 13.0-17.0 [facility] Comment on above: Performed By: #### P T, PTT, AMYL, CMP, LIPA, PHOS ####[place] [address]#### TRANSF ####[place] [phone] Lymphocytes 2.21 10*3/uL Normal 1.00-4.00 [facility] Comment on above: Performed By: #### P T, PTT, AMYL, CMP, LIPA, PHOS ####[place] [address]#### TRANSF ####[place] [phone] Lymphocytes/100 leukocytes 26.4 % Normal [facility] Comment on above: Performed By: #### P T, PTT, AMYL, CMP, LIPA, PHOS ####[place] [address]#### TRANSF ####[place] [address] MCH 24.9 pG Low 26.0-34.0 [facility] Comment on above: Performed By: #### P T, PTT, AMYL, CMP, LIPA, PHOS ####[place] [address]#### TRANSF ####[place] [phone] MCHC mass conc (RBC) 32.1 g/dL Normal 30.5-36.0 [facility] Comment on above: Performed By: #### P T, PTT, AMYL, CMP, LIPA, PHOS ####[address]#### TRANSF ####[place] [phone] MCV 77.6 fL Low 80.0-100.0 [facility] Comment on above: Performed By: #### P T, PTT, AMYL, CMP, LIPA, PHOS ####[place] [address]#### TRANSF ####[place] [phone] Monocytes/100 leukocytes 7.2 % Normal [facility] Comment on above: Performed By: #### P T, PTT, AMYL, CMP, LIPA, PHOS ####[place] [address]#### TRANSF ####[place] [phone] Neutrophils/100 WBC Auto (Bld) 66.4 % Normal [facility] Comment on above: Performed By: #### P T, PTT, AMYL, CMP, LIPA, PHOS ####[address]#### TRANSF ####[place] [phone] Platelet mean volume (PMV) 9.7 fL Normal 9.0-12.7 [facility] Comment on above: Performed By: #### P T, PTT, AMYL, CMP, LIPA, PHOS ####[address]#### TRANSF ####[place] [address] [place], [place] [phone] Platelets 230 10*3/uL Normal 150-400 [facility] Comment on above: Performed By: #### P T, PTT, AMYL, CMP, LIPA, PHOS ####[address] [phone]#### TRANSF ####[address] [phone] WBC (Leukocytes) 8.38 10*3/uL Normal 3.70-11.00 [facility] Comment on above: Performed By: #### P T, PTT, AMYL, CMP, LIPA, PHOS ####[address] [phone]#### TRANSF ####[address] [phone] CONSULT PROGon 10-01-2017 CONSULT PROG HNO ID: [id number] thor: Matilda Malloy: Pain ManagementAuthor Type: AnesthesiologistType: Consult Progress NoteFiled: 10/01/2017 10:03 AMNote Text:APMS - EPIDURAL PROGRESS NOTESERVICE DATE: 10/01/2017SERVICE TIME: 8:47 AMPRIMARY SERVICE: General SurgeryASSESSMENT : Rocio Jackson is a 62 year old male with hx of DM, HTN, CAD,s/p PCI with stent placement, PSH of cholecystectomy, who is now POD# 1s/p Whipple procedure for duodenal mass with distal duodenal distortion.T9-10 Epidural placed to aid in post op pain control.Epidural site without signs or symptoms of infection, no erythema,tenderness, drainage, or warmth.No nausea or vomiting.Pain adequately controlled..PLAN:Continue epidural analgesia to promote comfort, mobility, and pulmonarytoilet.Continue adjunctive therapy as needed..SUBJECTIVEInterval HPI: Rocio Jackson is a 62 year old male who is POD 1, S/P whipple.Pain at surgical site? Yes, abdomenCondition of surgical site: c/d/iOther locations of pain? NoPain score at rest: 0Pain score with movement (cough, deep breathe, ambulation, etc): 3Able to cough/deep breathe adequately?:YesHas patient been out of bed in a chair? NoHas patient been ambulating?: NoIs the patient tolerating Physical Therapy?: ordered, and waitingCharacter: unable to describe painDuration: intermittentRadiation: NoRelieved: Yes - Epidural bolusIs patient satisfied with pain control: YesOvernight Events: NoneOvernight Pain Interventions: NoDiet: NPOOBJECTIVEPERTINENT ROS:ALLERGIESNo Known AllergiesInformation retrieved from Allergy section.Is the patient intubated and sedated? No.Numbness?: NoWeakness?: NoNausea?: NoVomitting?: NoPruritis?: NoBack pain?: NoHeadache?: NoSedation?: NoConfusion/Delirium?: NoOther: noneEpidural Location: ThoracicEpidural catheter placed: Day of surgeryMEDICATIONS:Epidural Medications and SUPERVISOR LAUNDRY SettingsBupivacaine 0.1% + DilaudidBasal rate: 6 mL/hr.Patient Demand Bolus: 3 mL.Lockout interval: 4 minutes.Additional medication(s) given: See belowAnticoagulation therapy: Lovenox 40 mgLast Dose given: due at [address] [place] [address] medications:magnesium sulfate in sterile water 4 g iv piggyback 4 g INTRAVENOUS ONCE0.9% NaCl 2-10 mL 2-10 mL INTRAVENOUS q 12 Hnaloxone 0.2 mg injection (NARCAN) 0.2 mg INTRAVENOUS PRNacetaminophen 500-1,000 mg tab(s) (TYLENOL) 500-1,000 mg ORAL q 4 H PRNbupivacaine(PF) 0.1 %, HYDROmorphone (PF) 10 mcg/mL in NaCl 0.9% 300 mLepidural EPIDURAL CONTINUOUSnalbuphine 5 mg injection (NUBAIN) 5 mg INTRAVENOUS q 3 H PRNatorvastatin 40 mg tab(s) (LIPITOR) 40 mg ORAL AT BEDTIMEaspirin, enteric coated 162 mg tab(s) (ASPIRIN, ENTERIC COATED) 162 mgORAL DAILYnitroglycerin sublingual 0.4 mg tab(s) (NITROQUICK) 0.4 mg SUBLINGUAL q 5MIN PRNdextrose 40 % 15 g 15 g ORAL PRNglucagon 1 mg injection (GLUCAGEN) 1 mg INTRAMUSCULAR PRNdextrose 50% in water 25 mL syringe 12.5 g INTRAVENOUS PRNlactated ringers infusion 125 mL/hr INTRAVENOUS CONTINUOUSpotassium chloride ER 20-40 mEq tab(s) (K-DUR, KLOR-CON) 20-40 mEq ORALPRNpotassium chloride iv piggyback 20 mEq/100 mL 20 mEq INTRAVENOUS PRNmagnesium sulfate in water 2 g in sterile water 50 ml 2 g INTRAVENOUSPRN(NO DISPENSE)sodium phosphate 45 mmol in NaCl 0.9% 250 mL 45 mmol INTRAVENOUS PRN(NODISPENSE)ondansetron (PF) 4 mg injection (ZOFRAN) 4 mg INTRAVENOUS q 6 H PRNacetaminophen 1,000 mg tab(s) (TYLENOL) 1,000 mg ORAL q 6 Hketorolac 15 mg injection (TORADOL) 15 mg INTRAVENOUS q 6 H[START ON 10/02/2017] ibuprofen 800 mg tab(s) (MOTRIN) 800 mg ORAL q 8 HHYDROmorphone SUPERVISOR LAUNDRY 0.5 mg/mL in NaCl 0.9% 100 mL INTRAVENOUS CONTINUOUSHYDROmorphone 0.5 mg/mL SUPERVISOR LAUNDRY CLINICIAN DOSE 0.2-0.4 mg 0.2-0.4 mgINTRAVENOUS (PACU) PRNHYDROmorphone 0.5 mg/mL SUPERVISOR LAUNDRY CLINICIAN DOSE 0.2 mg 0.2 mg INTRAVENOUS q 6 HPRNinsulin lispro injection (rapid acting) (HumaLOG) SUBCUTANEOUS q 6 Hheparin 5,000 Units injection 5,000 Units SUBCUTANEOUS q 12 Henoxaparin 40 mg injection (LOVENOX) 40 mg SUBCUTANEOUS DAILYmetoclopramide HCl 10 mg injection (REGLAN) 10 mg INTRAVENOUS q 6 H PRNPHYSICAL EXAM:Patient Vitals for the past 8 hrs: Temp Temp src Pulse Resp SpO2 Height Ylfbtk89/05/18 0700 - - 87 17 97 % - -10/01/17 0600 - - 81 15 99 % - -10/01/17 0500 - - 86 18 100 % - -10/01/17 0400 37.5 ?C (99.5 ?F) Axillary 86 17 100 % - -10/01/17 0300 - - 91 17 99 % - -10/01/17 0200 - - 94 17 99 % - -10/01/17 0100 - - 95 17 100 % 172.7 cm (5' 7.99 ) 81.1 kg (178 lb 12.7 oz)Intake/Output Summary (Last 24 hours) at 10/01/17 0847Last data filed at 10/01/17 0700 Gross per 24 hourIntake 6260.1 mlOutput 1290 mlNet 4970.1 mlInformation retrieved from nursing flowsheet.Affect: awakeGeneral Impression: appears comfortableCatheter site is: clean, non-tender and with dressing intact.Neurologic Exam:Sensory exam: Along the dermatomal distribution of the epidural.Motor Exam: intact.Respiratory Exam:Respirations: Breathing appears normalThoracostomy tube?: NoGastrointestinal Exam:Bowel sounds: NoNG?: YesJP drains?: Yes. How many: 2Other pertinent physical exam findings: NoLab ResultsAPTT 25.9 09/30/2017PT Sec 12.2 09/30/2017PT INR 1.2 09/30/2017Hemoglobin 8.8 10/01/2017Hematocrit 27.4 10/01/2017Platelet Count 230 10/01/2017Creatinine 0.78 10/01/2017BUN 20 10/01/2017SIGNATURE: Matilda Raya MD PATIENT NAME: Rocio JacksonDATE: October 01, 2017 : 8:47 AM PAGER/CONTACT #: [facility] [phone] Normal [facility] Comp Metabolic Panelon 10-01 Alanine aminotransferase (ALT) 35 U/L Normal 5-50 [facility] Comment on above: Performed By: #### P T, PTT, AMYL, CMP, LIPA, PHOS ####[facility] [place], [place] [phone]#### TRANSF ####[facility] [place], [place] [phone] Albumin 2.6 g/dL Low 3.5-5.0 [facility] Comment on above: Result Comment: Revi ewed Performed By: #### P T, PTT, AMYL, CMP, LIPA, PHOS ####[place] [address]#### TRANSF ####[place] [phone] Alkaline phosphatase (ALP) 70 U/L Normal 40-150 [facility] Comment on above: Performed By: #### P T, PTT, AMYL, CMP, LIPA, PHOS ####[place] [address]#### TRANSF ####[place] [phone] Anion gap 12 mmol/L Normal 9-18 [facility] Comment on above: Performed By: #### P T, PTT, AMYL, CMP, LIPA, PHOS ####[place] [address]#### TRANSF ####[place] [address] Aspartate aminotransferase (AST) 32 U/L Normal 7-40 [facility] Comment on above: Performed By: #### P T, PTT, AMYL, CMP, LIPA, PHOS ####[place] [address]#### TRANSF ####[place] [phone] Bilirubin (total) 0.3 mg/dL Normal 0.0-1.5 [facility] Comment on above: Performed By: #### P T, PTT, AMYL, CMP, LIPA, PHOS ####[place] [address]#### TRANSF ####[place] [phone] Calcium 7.7 mg/dL Low 8.5-10.5 [facility] Comment on above: Performed By: #### P T, PTT, AMYL, CMP, LIPA, PHOS ####[place] [address]#### TRANSF ####[place] [phone] Chloride 105 mmol/L Normal 98-110 [facility] Comment on above: Performed By: #### P T, PTT, AMYL, CMP, LIPA, PHOS ####[place] [address]#### TRANSF ####[place] [phone] CO2 23 mmol/L Normal 23-32 [facility] Comment on above: Performed By: #### P T, PTT, AMYL, CMP, LIPA, PHOS ####[place] [address]#### TRANSF ####[place] [phone] Creatinine 0.78 mg/dL Normal 0.70-1.40 [facility] Comment on above: Performed By: #### P T, PTT, AMYL, CMP, LIPA, PHOS ####[place] [address]#### TRANSF ####[place] [address] eGFR (non-black) mL/min/{1.73_m2} Normal >60 [facility] Comment on above: Performed By: #### P T, PTT, AMYL, CMP, LIPA, PHOS ####[place] [address]#### TRANSF ####[place] [phone] Glucose mass conc 145 mg/dL High 65-100 [facility] Comment on above: Performed By: #### P T, PTT, AMYL, CMP, LIPA, PHOS ####[place] [address]#### TRANSF ####[place] [phone] Potassium molar conc 4.8 mmol/L Normal 3.5-5.0 [facility] Comment on above: Performed By: #### P T, PTT, AMYL, CMP, LIPA, PHOS ####[place] [address]#### TRANSF ####[place] [phone] Protein 5.1 g/dL Low 6.0-8.4 [facility] Comment on above: Performed By: #### P T, PTT, AMYL, CMP, LIPA, PHOS ####[place] [address]#### TRANSF ####[place] [address] Sodium 140 mmol/L Normal 135-146 [facility] Comment on above: Performed By: #### P T, PTT, AMYL, CMP, LIPA, PHOS ####[place] [address]#### TRANSF ####[place] [address] Urea nitrogen 20 mg/dL Normal 10-25 [facility] Comment on above: Performed By: #### P T, PTT, AMYL, CMP, LIPA, PHOS ####[place] [address]#### TRANSF ####[place] [address] HISTORY PHYSICALon 8 HISTORY PHYSICAL HNO ID: [id number] thor: Maria De Jesus Schneider (Fel)ervice: Critical CareAuthor Type: ResidentType: HANDPFiled: 10/01/2017 6:13 AMNote Text:SICU HANDP NOTESERVICE DATE: 10/01/2017SERVICE TIME:SubjectiveHPI: This is a 62 year old male with hx of DM, HTN, CAD, s/p PCI withstent placement, PSH of cholecystectomy, who underwent on 10/01/2015 Whippleprocedure for duodenal mass with distal duodenal distortion.Presented to SICU for recovery. Extubated. 800mls -1 L EBL. HD stable.PAST MEDICAL HISTORYDiagnosis Date- Bleeding ulcer 11/15/2016 required 5 blood transfusions- Diabetes mellitus (HCC) 2016- Glaucoma- Hypertension- Myocardial infarction (HCC) 05/15/2011PAST SURGICAL HISTORYProcedure Laterality Date- ANGIOPLASTY HX 05/15/2011 2 stents s/p MD;[facility]- CHOLECYSTECTOMY 08/11/2017 [facility]- PICC LINE INSERT/CONSULT 08/16/2017No family history on file.Social HistorySubstance Use Topics- Smoking status: Former Smoker Types: Cigarettes Quit date: 2010- Smokeless tobacco: Never Used- Alcohol use 1.5 oz/week 1 Cans of Beer (12oz) per week Comment: occasional beerPRIOR TO ADMISSION MEDICATIONS [email or web address] Known AllergiesSICU OP Course 800- 1 L EBLAdmission Weight: Weight: 81.1 kg (178 lb 12.7 oz)ObjectiveVITAL SIGNSTemp: 37.5 ?C (99.5 ?F) Pulse: 86 BP: 110/88 CVP: 2 Resp: 18 SpO2: 100 %[place] Vani Readings: Not applicableRESPIRATORYMechani rachid Ventilation: No. Supplemental Oxygen: Yes. 2 L NCRecent Labs 09/30/943915KIMK 2.3*PHYSICAL EXAMNeuro: AwakePulmonary: Clear to auscultation. Breath Sounds Equal: YesCardiovascular: Regular rhythmAbdomen: Soft and NontenderExtremities: Edema- Yes Peripheral pulses- Present all extremitiesWounds/Drsgs- NoPresence of Pressure Ulcer NoCXR Findings: CXR personally viewed and interpreted by ICU NursePractitioner.Clear lung fieldsInfusions: NoneCurrent Facility-Administered Medications:magnesium sulfate in sterile water 4 g iv piggyback 4 g INTRAVENOUS ONCE0.9% NaCl 2-10 mL 2-10 mL INTRAVENOUS q 12 Hnaloxone 0.2 mg injection (NARCAN) 0.2 mg INTRAVENOUS PRNacetaminophen 500-1,000 mg tab(s) (TYLENOL) 500-1,000 mg ORAL q 4 H PRNbupivacaine(PF) 0.1 %, HYDROmorphone (PF) 10 mcg/mL in NaCl 0.9% 300 mLepidural EPIDURAL CONTINUOUSnalbuphine 5 mg injection (NUBAIN) 5 mg INTRAVENOUS q 3 H PRNatorvastatin 40 mg tab(s) (LIPITOR) 40 mg ORAL AT BEDTIMEaspirin, enteric coated 162 mg tab(s) (ASPIRIN, ENTERIC COATED) 162 mgORAL DAILYnitroglycerin sublingual 0.4 mg tab(s) (NITROQUICK) 0.4 mg SUBLINGUAL q 5MIN PRNdextrose 40 % 15 g 15 g ORAL PRNOrglucagon 1 mg injection (GLUCAGEN) 1 mg INTRAMUSCULAR PRNOrdextrose 50% in water 25 mL syringe 12.5 g INTRAVENOUS PRNlactated ringers infusion 125 mL/hr INTRAVENOUS CONTINUOUSpotassium chloride ER 20-40 mEq tab(s) (K-DUR, KLOR-CON) 20-40 mEq ORALPRNOrpotassium chloride iv piggyback 20 mEq/100 mL 20 mEq INTRAVENOUS PRNmagnesium sulfate in water 2 g in sterile water 50 ml 2 g INTRAVENOUSPRN(NO DISPENSE)sodium phosphate 45 mmol in NaCl 0.9% 250 mL 45 mmol INTRAVENOUS PRN(NODISPENSE)ondansetron (PF) 4 mg injection (ZOFRAN) 4 mg INTRAVENOUS q 6 H PRNacetaminophen 1,000 mg tab(s) (TYLENOL) 1,000 mg ORAL q 6 Hketorolac 15 mg injection (TORADOL) 15 mg INTRAVENOUS q 6 HHYDROmorphone SUPERVISOR LAUNDRY 0.5 mg/mL in NaCl 0.9% 100 mL INTRAVENOUS CONTINUOUSHYDROmorphone 0.5 mg/mL SUPERVISOR LAUNDRY CLINICIAN DOSE 0.2-0.4 mg 0.2-0.4 mgINTRAVENOUS (PACU) PRNHYDROmorphone 0.5 mg/mL SUPERVISOR LAUNDRY CLINICIAN DOSE 0.2 mg 0.2 mg INTRAVENOUS q 6 HPRNinsulin lispro injection (rapid acting) (HumaLOG) SUBCUTANEOUS q 6 Hheparin 5,000 Units injection 5,000 Units SUBCUTANEOUS q 12 Henoxaparin 40 mg injection (LOVENOX) 40 mg SUBCUTANEOUS DAILYmetoclopramide HCl 10 mg injection (REGLAN) 10 mg INTRAVENOUS q 6 H PRNPatient Lines Assessed:Line Left Radial 1 day ?? Central Line Triple Lumen 09/30/17 ? Right Neck 1 day ?? Peripheral 09/30/17 ?Right Forearm 18 Gauge 1 day ?? Peripheral 09/30/17 ?Short Left Hand 18 Gauge 1 day ?? Subcutaneous 09/30/17 0829 Peripheral Nerve Block ?RECENT LABSRecent Labs 326 100 805P 4.4 -- --MG 1.3* -- --CA 7.7* -- 7.8*NA 140 -- 140K 4.8 -- 4.9CHLOR 105 -- 105CO2 23 -- 24BUN 20 -- 18CREAT 0.78 -- 0.65*GLUC 145* -- 157*TPROT 5.1* -- 5.8*ALB 2.6* -- 3.1*AST 32 -- 48*ALT 35 -- 46ALKPHOS 70 -- 91TBILI 0.3 -- 0.5WBC 8.38 8.24 7.14RBC 3.53* 3.70* 3.96*HB 8.8* 9.4* 10.1*HCT 27.4* 28.9* 30.7*PLT 230 231 242INR -- -- 1.2APTT -- -- 25.9DATA:Diagnostic tests reviewed for today's visit:Most recent labs and imaging results.Assessment/PlanRocio Jackson is a 62 year old M, hx of DM, HTN, CAD, s/p PCI with stentplacement, PSH of cholecystectomy, who underwent on 10/01/2015 Whippleprocedure for duodenal mass with distal duodenal distortion.REASON FOR ICU ADMISSION: Close HD monitoringPROCEDURE: Whipple procedureSeen and discussed on rounds with SICU staff: Dr. Junior: epidural in place, Hydromorphone SUPERVISOR LAUNDRY, ToradolCV: Intermittent hypotension, no vasopressor requiredPulm: CTA b/l, extubated, pulmonary hygiene.Renal: Mancilla in place, good UOP.GI: NPO, Corpak in place. Amylase daily.Heme: H/H stable, no indication for transfusion.Fluid/Electrolyt e/Nutrition: LR @ 125 mls/24 HrsID: No Abx.PATIENT CHECKLIST? Are Restraints Necessary? No? Deep Vein Thrombosis Prophylaxis Administered? Yes.? Central Line Present on Admission to SICU? Yes. Able to D/C? No, linenecessary for: Frequent requirement for intravenous access and Monitoringof cental venous pressure? Stress Ulcer Prophylaxis? Yes.? HOB Elevated 45 Degrees? Yes.? On Sedation? No? Pain Addressed? Yes.? Plan Reviewed with assigned RN? Yes.? Nutrition: Enteral- No. TPN- No. PO- No.? Family updated? Yes.SIGNATURE: Maria De Jesus Barton MD PATIENT NAME: Rocio JacksonDATE: October 01, 2017 : 5:54 AM PAGER/CONTACT #: [phone] [facility] Magnesiumon 10-01-2017 Magnesium 2.1 mg/dL Normal 1.7-2.6 [facility] Comment on above: Performed By: #### P T, PTT, AMYL, CMP, LIPA, PHOS ####[place] [address]#### TRANSF ####[place] [phone] Magnesium 1.3 mg/dL Low 1.7-2.6 [facility] Comment on above: Performed By: #### P T, PTT, AMYL, CMP, LIPA, PHOS ####[place] [address]#### TRANSF ####[place] [phone] NURSING PROGon 10-01-2017 NURSING PROG HNO ID: [id number] thor: Cee (Rn) MOUSTAPHA Dialervice: (none)Author Type: Registered NurseType: Nursing Progress NoteFiled: 10/01/2017 7:58 PMNote Text: Nursing Progress NotePatient Name: Rocio JacksonMRN: [id number] Location[facility]/YR-OVW-53 ___Daily Note:1900: Bedside report received from previous shift RN.This note was completed by: Cee Dial RN [facility] NURSING PROG HNO ID: [id number] thor: Marysol (Rn) Kimberli, RNService: Critical CareAuthor Type: Registered NurseType: Nursing Progress NoteFiled: 10/01/2017 1:35 PMNote Text: Nursing Progress NotePatient Name: Rocio JacksonMRN: [id number] Location: [facility]/MS-SID-84 ___Daily Note:0715-bedside report received from Reed BATEMAN.0720- surgical team at bedside to assess patient. 1 L LR bolus ordered forhypotension.1125- Dr. Raya text paged SICU 7 D.F.-- Patient's SBP continues to remainlow after 2 fluid boluses, Dr. Boothe asked that I page pain management tosee if it would be appropriate to decrease the basal rate on his epidural.Thank you, Laura BATEMAN [phone] . Dr. Raya returned page, will place order todecrease basal rate of epidural to 4cc/hr.1330- Dr. Brown text paged SICU 7 D.F.-- patient's urine output has yobe43vo/hr x2 hours. Blood pressure has improved, we decreased the basal rateof his epidural. Also, he would like throat spray, his throat is sore.Thank you, Laura BATEMAN [phone] This note was completed by: Marysol Ag RN [facility] NURSING PROG HNO ID: [id number] thor: Radha Ndiaye NsService: (none)Author Type: (none)Type: Nursing Progress NoteFiled: 10/01/2017 6:01 AMNote Text: Nursing Progress NotePatient Name: Rocio Boudreaux: [id number] Location: [place] [address]/DX-NLG-06 ___Daily Note:1909- Report complete. VSS on 6L via VM d/t both nares occupiedby NG/Corpak. No distress no needs.1999- See doc flow for assessment.2044- Made JR SROC Dr barton aware of low bp. No recent changes inmedication or given meds to cause hypotension. See order for 1L IVF LR xnow.2129- BP improving.0000- No signficant changes. JPs emptied sangeous output.399- reassessment complete with no significant changes, see flowsheet.Labs and amylase drawn and [id number]- MD notified of low magnesium level, waiting for mag replacement tocome up from nkzdceep1859- Report given to day shift nurseThis note was completed by: Reed Rincon RN [facility] NUTRITIONon 10-01-2017 NUTRITION HNO ID: [id number] thor: Bailey Segura) Purvie: Nutrition TherapyAuthor Type: Registered DietitianType: NutritionFiled: 10/01/2017 2:04 PMNote Text:NUTRITION THERAPY INITIAL ASSESSMENTSERVICE DATE: 10/01/2017SERVICE TIME: 1:49 PMRECOMMENDED MALNUTRITION DIAGNOSIS: SEVERE PROTEIN-CALORIE MALNUTRITIONIn the context of Chronic Illness or Injury based on:Unintentional Weight Loss: >5% in 1 monthInsufficient Energy Intake: Less than 75% energy intake compared toestimated needs for greater than or equal to 1 monthNUTRITION CARE PLAN:Problem, Etiology and Signs/Symptoms:Increased nutrient needs calories/protein related to catabolic illness asevidenced by s/p WhippleIntervention:TF started today - Impact Peptide 1.5 at 10 ml/hr ; increased to 50 ml/hrThis will provide 1200 ml; 1800 calories; 112 g proteinGoal will be 55 ml/hr = 1320 ml; 1980 calories; 124 g proteinMonitor and Evaluation:Goal: Meet >75% of estimated needsMonitor fluid/electrolyte balanceMonitor labs, I/Os, vital signs, weightMonitor tolerance to tube feedingDischarge Nutrition Recommendations:To be determinedPer HPI:62 year old male hx HTN, DM, CAD s/p PCI, who underwent a classicwhipple for an obstructing duodenal mass 09/30, who was admitted to the [facility] further care.Present Diet Order: NPO and Tube Feeding Impact Peptide 1.5 at 10 ml/hr ;to be increased to 50 ml/hrEnteral Access:corpakNutritional Intake Prior to Admission: <75% estimated energy needs overthe past 1 month(s)GI symptoms: unable to determine at this timeAbdominal Exam: not assessedIs the patient having any pain that is interfering with oral/enteralintake? Unable to assessANTHROPOMETRICSHeight: 172.7 cm (5' 7.99 )Admission Weight: 81.1 kg (178 lb 12.7 oz)Current Weight: 81.1 kg (178 lb 12.7 oz)Body mass index is 27.19 kg/(m2). overweightWeight has decreased by 8 kg over 1.5 months representing 9% weightchange.Last Wt10/01/17 : 81.1 kg (178 lb 12.7 oz)09/24/17 : 79.8 kg (176 lb)09/15/17 : 81.2 kg (179 lb)08/17/17 : 87.1 kg (192 lb)Dosing Weight: 81 kgResting Metabolic Rate: 1599Estimated kilocalorie needs: 6425-2906 kilocalories determined by 20-25kcal/kgEstimated protein needs: 105-138 grams determined by 1.3-1.7 g/kg DosingweightEstimated fluid needs: 5052-8659 milliliters based on 1 mL per kcalNUTRITION FOCUSED PHYSICAL EXAM:Subcutaneous Fat LossOrbital ModerateTriceps ModerateMid-axillary at the iliac crest Unable to determine at this timeMuscle Loss Locations:Temporalis MildPectoralis MildDeltoids MildInterosseous Unable to determine at this timeLatissimus dorsi, trapezius Unable to determine at this timeQuadriceps ModerateGastrocnemius ModeratePotential micronutrient deficiency revealed in: No deficiency identifiedEdema: Yes Upper extremities Moderate 2+Ascites: NoAssessment of Functional Status: Unable to determine at this timeTemperature Max in 24 hours: Temp (24hrs), Av.6 ?C (99.7 ?F), Min:37.4?C (99.3 ?F), Max:38 ?C (100.4 ?F) BP 97/58 Pulse 81 Temp 37.4 ?C (99.3 ?F) (Oral) Resp 16 Ht 172.7cm (5' 7.99 ) Wt 81.1 kg (178 lb 12.7 oz) SpO2 95% BMI 27.19 kg/z0Ewirwf Labs GLUC 145*BUN 20CREAT 0.78NA 140K 4.8CHLOR 105CO2 23ALB 2.6*HB 8.8*HCT 27.4*WBC 8.38P 4.4MG 1.3*Potential Signs of Inflammation: hyperglycemia, hypoalbuminemia andhyperthermiaALLERGIESNo Known AllergiesCurrent Facility-Administered Medications:0.9% NaCl 2-10 mL 2-10 mL INTRAVENOUS q 12 Hnaloxone 0.2 mg injection (NARCAN) 0.2 mg INTRAVENOUS PRNacetaminophen 500-1,000 mg tab(s) (TYLENOL) 500-1,000 mg ORAL q 4 H PRNbupivacaine(PF) 0.1 %, HYDROmorphone (PF) 10 mcg/mL in NaCl 0.9% 300 mLepidural EPIDURAL CONTINUOUSnalbuphine 5 mg injection (NUBAIN) 5 mg INTRAVENOUS q 3 H PRNatorvastatin 40 mg tab(s) (LIPITOR) 40 mg ORAL AT BEDTIMEaspirin, enteric coated 162 mg tab(s) (ASPIRIN, ENTERIC COATED) 162 mgORAL DAILYnitroglycerin sublingual 0.4 mg tab(s) (NITROQUICK) 0.4 mg SUBLINGUAL q 5MIN PRNdextrose 40 % 15 g 15 g ORAL PRNOrglucagon 1 mg injection (GLUCAGEN) 1 mg INTRAMUSCULAR PRNOrdextrose 50% in water 25 mL syringe 12.5 g INTRAVENOUS PRNpotassium chloride ER 20-40 mEq tab(s) (K-DUR, KLOR-CON) 20-40 mEq ORALPRNOrpotassium chloride iv piggyback 20 mEq/100 mL 20 mEq INTRAVENOUS PRNmagnesium sulfate in water 2 g in sterile water 50 ml 2 g INTRAVENOUSPRN(NO DISPENSE)sodium phosphate 45 mmol in NaCl 0.9% 250 mL 45 mmol INTRAVENOUS PRN(NODISPENSE)ondansetron (PF) 4 mg injection (ZOFRAN) 4 mg INTRAVENOUS q 6 H PRNacetaminophen 1,000 mg tab(s) (TYLENOL) 1,000 mg ORAL q 6 Hketorolac 15 mg injection (TORADOL) 15 mg INTRAVENOUS q 6 HHYDROmorphone SUPERVISOR LAUNDRY 0.5 mg/mL in NaCl 0.9% 100 mL INTRAVENOUS CONTINUOUSHYDROmorphone 0.5 mg/mL SUPERVISOR LAUNDRY CLINICIAN DOSE 0.2-0.4 mg 0.2-0.4 mgINTRAVENOUS (PACU) PRNHYDROmorphone 0.5 mg/mL SUPERVISOR LAUNDRY CLINICIAN DOSE 0.2 mg 0.2 mg INTRAVENOUS q 6 HPRNinsulin lispro injection (rapid acting) (HumaLOG) SUBCUTANEOUS q 6 Hheparin 5,000 Units injection 5,000 Units SUBCUTANEOUS q 12 Hmetoclopramide HCl 10 mg injection (REGLAN) 10 mg INTRAVENOUS q 6 H PRNIntake/Output 09/30/17 0700 - 10/01/17 0659 10/01/17 0700 - 10/02/17 0659 Intake (ml) 6260.1 150 Output (ml) 1250 305 Net (ml) 5010.1 -155Surgical Incision 09/30/17 0940 Abdomen (Active)Dressing Status Initial Post-Op Dressing Intact;Other: See Comment10/01/2017 8:00 AMFrequency of Dressing Change Other: See Comment 10/01/2017 8:00 AMDressing /Treatment Type Dry Cover Dressing 10/01/2017 8:00 AMIncision Closures Other: See Comment 10/01/2017 8:00 AMDrainage Description None 10/01/2017 8:00 AMDrainage Amount None 10/01/2017 8:00 AMEdges Other: See Comment 10/01/2017 8:00 AMHematoma No 10/01/2017 8:00 AMNumber of days:1MNT Billing Type: Initial Assess/15 min 4 unitsSIGNATURE: Bailey Tripp RD, LD PATIENT NAME: Rocio JacksonDATE: October 01, 2017 : 1:49 PM PAGER: [phone] further assistance and weekends please page the Group [phone] [facility] PROGRESSon 10-01-2017 PROGRESS HNO ID: [id number] thor: Rick Stinson: Critical CareAuthor Type: PhysicianType: Progress NotesFiled: 10/01/2017 1:55 PMNote Text:Critical Care Progress NoteService Date: October 01, 2017Assessment and Plan:Rocio Jackson is a 62 year old male with history of DM, HTN, CAD, s/p PCIwith stent placement, cholecystectomy c/b leak 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 POD #1Indication for ICU admission: hemodynamic monitoring in the setting of theabove surgeryNeuro:- Analgesia: Tylenol, toradol/Motrin, bupivacaine, dilaudid SUPERVISOR LAUNDRY onceepidural removed- Anxiety/Sedation: NoneCardiovascular:- ASA 162- statin- ICU monitoring A-line- IV Access: pIV, RIJRespiratory:- Incentive spirometryGI:- Nutrition/Diet: TFs + sips.- d/c NGTRenal: (Baseline sCr: 0.65)- Urine output 40-50 cc/hr. sCr 0.78. Mancilla indicated.- IVF LR at 125- Electrolytes replete Ca, K >4, Phos >3, Mag >2.Heme/ID:- Hemoglobin 8.8. No evidence of bleeding. Transfuse for hgb < 7 or ifsymptomatic- WBC 8.3- Abx: None- DVT Prophylaxis: IPCs, SQHEndo:- Glucose 145.Wound Care: Incisional dressing.- Drain ROMINA to bulb suctionMSK- Activity Level: OOB/Mobilize- PT/OTDispo: SICU but ok for RNF todayPlan to be discussed with ICU Staff Dr. Boothe.Kolby Brown MDGenethe surgical hospital at southwoods Surgery[C]: [phone] [P]: [id number]: 10/01/2017Time: 9:59 AMSubjective:Interval Events: NAEON. Pain controlled. Thirsty. Slept ok.Physical Exam:BP 110/88 Pulse 87 Temp 37.4 ?C (99.3 ?F) (Oral) Resp 17 Ht 172.7cm (5' 7.99 ) Wt 81.1 kg (178 lb 12.7 oz) SpO2 97% BMI 27.19 kg/v7GRQLAQC: Well appearing 62 year old male in no distressNEURO: AAox3, TZU30ABMQQ: Corpak/NGT in placeCHEST: nonlabored breathing on RA. NL rate and rhythmABDOMEN: Soft, non-distended, mildly tenderEXTREMITIES: Warm well perfused, no deformitiesLabs:CBC, BMP, MG, PHOSRecent Labs 09/30/1820809509/02/1803WBC 8.38 8.24 7.14 7.49 4.87 4.43 4.93HB 8.8* 9.4* 10.1* 8.6* 7.9* 8.0* 7.9*HCT 27.4* 28.9* 30.7* 29.1* 25.0* 25.1* 24.9*PLT 230 231 242 354 495* 470* 505*NA 140 -- 140 138 137 138 139K 4.8 -- 4.9 4.7 4.3 4.4 4.4CHLOR 105 -- 105 98 101 102 102CO2 23 -- 24 28 29 29 27BUN 20 -- 18 13 11 10 9*CREAT 0.78 -- 0.65* 0.68* 0.54* 0.56* 0.59*GLUC 145* -- 157* 110* 149* 165* 133*CA 7.7* -- 7.8* 9.7 8.0* 7.9* 8.1*MG 1.3* -- -- -- 2.3 2.3 2.3P 4.4 -- -- -- 2.0* 2.1* 2.8Liver Function, Amylase, AND LipaseRecent Labs 0409/30/1817TPROT 5.1* 5.8* 7.8 6.6ALB 2.6* 3.1* 3.7 2.9*ALT 35 46 38 74*AST 32 48* 37 93*ALKPHOS 70 91 160* 490*TBILI 0.3 0.5 0.3 0.4LACT -- 2.3* -- --CoagsRecent Labs 09/24/18085APTT 25.9 24.9 -- -- 39.8* 31.6INR 1.2 1.1 1.0 2.0* 2.0* 1.5*Intake and Output:Date 09/30/17 0700 - 10/01/17 0659 10/01/17699 - 10/02/17 0659Shift 7268-0781 5406-8798 2291-1770 24 Hour Total 7157-9085 4062-89316058-1054 24 Hour TotalINTAKE IV 3240.1 1967 5207.1 IVPB 28.1 28.1 LR 3212 1967 5179 Blood Products 1053 1053 PRBC Intake (mL) 1050 1050 Packed Red Blood Cells Number of Units 3 3 Shift Total 1053 3240.1 1967 6260.1OUTPUT Urine 670 290 960 40 40 Tube Output ( Indwelling Urinary Catheter 09/30/17 0909 Mancilla 16Fr) 670 290 960 40 40 Tubes 175 115 290 Drain/Tube Output (Drain/Tube 09/30/17 1626 Chandana Howard Left AbdomenDrain #2) 105 30 135 Drain/Tube Output (Drain/Tube 09/30/17 1627 Chandana Howard Right AbdomenDrain #1) 70 85 155 # of BMs Number of BMs 0 x 0 x Shift Total 202 672 2037 40 40Weight (kg) 81.1 81.1 81.1 81.1 81.1 81.1Current Medications:Current hospital medications:lactated ringers 1,000 mL iv bolus 1,000 mL INTRAVENOUS ONCE0.9% NaCl 2-10 mL 2-10 mL INTRAVENOUS q 12 Hnaloxone 0.2 mg injection (NARCAN) 0.2 mg INTRAVENOUS PRNacetaminophen 500-1,000 mg tab(s) (TYLENOL) 500-1,000 mg ORAL q 4 H PRNbupivacaine(PF) 0.1 %, HYDROmorphone (PF) 10 mcg/mL in NaCl 0.9% 300 mLepidural EPIDURAL CONTINUOUSnalbuphine 5 mg injection (NUBAIN) 5 mg INTRAVENOUS q 3 H PRNatorvastatin 40 mg tab(s) (LIPITOR) 40 mg ORAL AT BEDTIMEaspirin, enteric coated 162 mg tab(s) (ASPIRIN, ENTERIC COATED) 162 mgORAL DAILYnitroglycerin sublingual 0.4 mg tab(s) (NITROQUICK) 0.4 mg SUBLINGUAL q 5MIN PRNdextrose 40 % 15 g 15 g ORAL PRNglucagon 1 mg injection (GLUCAGEN) 1 mg INTRAMUSCULAR PRNdextrose 50% in water 25 mL syringe 12.5 g INTRAVENOUS PRNlactated ringers infusion 125 mL/hr INTRAVENOUS CONTINUOUSpotassium chloride ER 20-40 mEq tab(s) (K-DUR, KLOR-CON) 20-40 mEq ORALPRNpotassium chloride iv piggyback 20 mEq/100 mL 20 mEq INTRAVENOUS PRNmagnesium sulfate in water 2 g in sterile water 50 ml 2 g INTRAVENOUSPRN(NO DISPENSE)sodium phosphate 45 mmol in NaCl 0.9% 250 mL 45 mmol INTRAVENOUS PRN(NODISPENSE)ondansetron (PF) 4 mg injection (ZOFRAN) 4 mg INTRAVENOUS q 6 H PRNacetaminophen 1,000 mg tab(s) (TYLENOL) 1,000 mg ORAL q 6 Hketorolac 15 mg injection (TORADOL) 15 mg INTRAVENOUS q 6 H[START ON 10/02/2017] ibuprofen 800 mg tab(s) (MOTRIN) 800 mg ORAL q 8 HHYDROmorphone SUPERVISOR LAUNDRY 0.5 mg/mL in NaCl 0.9% 100 mL INTRAVENOUS CONTINUOUSHYDROmorphone 0.5 mg/mL SUPERVISOR LAUNDRY CLINICIAN DOSE 0.2-0.4 mg 0.2-0.4 mgINTRAVENOUS (PACU) PRNHYDROmorphone 0.5 mg/mL SUPERVISOR LAUNDRY CLINICIAN DOSE 0.2 mg 0.2 mg INTRAVENOUS q 6 HPRNinsulin lispro injection (rapid acting) (HumaLOG) SUBCUTANEOUS q 6 Hheparin 5,000 Units injection 5,000 Units SUBCUTANEOUS q 12 Hmetoclopramide HCl 10 mg injection (REGLAN) 10 mg INTRAVENOUS q 6 H PRNPrior to Admission Medications:apixaban (ELIQUIS) 5 mg tab(s) Take 1 tablet by mouth twice daily.metoprolol tartrate, short acting, (LOPRESSOR) 50 mg tablet Take 1 tabletby mouth every 12 hours.acetaminophen (TYLENOL) 325 mg tablet Take 2 tablets by mouth every 6hours as needed.aspirin, enteric coated (ECOTRIN LOW STRENGTH) 81 mg EC tablet Take 162 mgby mouth once daily.atorvastatin (LIPITOR) 40 mg tablet Take 40 mg by mouth daily at bedtime.metFORMIN (GLUCOPHAGE) 1,000 mg tablet Take 1,000 mg by mouth twice dailywith meals.Omeprazole Magnesium 20 mg cpDR Take 20 mg by mouth twice daily.nitroglycerin sublingual (NITROSTAT) 0.4 mg SL tablet Dissolve 0.4 mgunder the tongue every 5 minutes as needed.sAXagliptin (ONGLYZA) 5 mg tab Take by mouth once daily.[facility] STAFF PHYSICIAN SUPERVISING RESIDENTI have reviewed the progress note obtained and documented by the resident.I personally participated in the figueroa components. I have discussed the caseand the plan and management of the patient's care with the ICU team.IMPRESSION AND PLAN: As annotated in the above note. Satisfactory postopcourse so far. Pain control generally satisfactory. No nausea. Someorthostatic hypotension--fluids given, epidural continuous rate decreased.NG removed. Starting enteral nutrition support--elemental feed vianasoenteric tube. Increasing activity. Transferring to surgical floor whenbed available. SIGNATURE: GAEL PintoATE of SERVICE: 10/01/2017TIME of SERVICE: 1:30 PM [facility] PROGRESS HNO ID: [id number] thor: Michael Cedillo) AugustinService: General SurgeryAuthor Type: PhysicianType: Progress NotesFiled: 10/01/2017 1:19 PMNote Text:GENERAL SURGERY RESIDENT PROGRESS NOTEAssessment/Plan62 year old male hx HTN, DM, CAD s/p PCI, who underwent a classic whipplefor an obstructing duodenal mass 09/30, who was admitted to the SICU forfurther care.Plan:Start TF at trickle and ok to advance to [facility] ROMINA amylase x2D/c NGTAnticipate ok to Tx to RNF in PM if pressures are betterContinue EpiduralCaleb MD JaneGeneral Surgery, [id number] Pager: [phone], General Surgery Pager [phone]/11/13 9:19 AMPlease page [phone] on weekends and between 6 PM and 6 AM.SubjectiveINTERVAL HPI :Acute events overnight: none. Pain: w/c. Nausea: No. Vomiting: No. Flatus:No. Bowel movement: No. No other complaints.ObjectivePHYSICAL EXAM:General Appearance: in bed in NADLungs: nonlabored breathingAbdomen: soft, appropriately-tender, non-distendedIncisions:small amount of blood on dressingDrains:serosang x2Labs:CBC, BMP, MG, PHOSRecent Labs 100 805 67057909/02/18035308/31/1803WBC 8.38 8.24 7.14 7.49 4.87 4.43 4.93HB 8.8* 9.4* 10.1* 8.6* 7.9* 8.0* 7.9*HCT 27.4* 28.9* 30.7* 29.1* 25.0* 25.1* 24.9*PLT 230 231 242 354 495* 470* 505*NA 140 -- 140 138 137 138 139K 4.8 -- 4.9 4.7 4.3 4.4 4.4CHLOR 105 -- 105 98 101 102 102CO2 23 -- 24 28 29 29 27BUN 20 -- 18 13 11 10 9*CREAT 0.78 -- 0.65* 0.68* 0.54* 0.56* 0.59*GLUC 145* -- 157* 110* 149* 165* 133*CA 7.7* -- 7.8* 9.7 8.0* 7.9* 8.1*MG 1.3* -- -- -- 2.3 2.3 2.3P 4.4 -- -- -- 2.0* 2.1* 2.8Liver Function, Amylase, AND LipaseRecent Labs 09/30/1817TPROT 5.1* 5.8* 7.8 6.6ALB 2.6* 3.1* 3.7 2.9*ALT 35 46 38 74*AST 32 48* 37 93*ALKPHOS 70 91 160* 490*TBILI 0.3 0.5 0.3 0.4LACT -- 2.3* -- --CoagsRecent Labs 09/24/1808PTT 25.9 24.9 -- -- 39.8* 31.6INR 1.2 1.1 1.0 2.0* 2.0* 1.5*Current Medications:Current hospital medications:magnesium sulfate in sterile water 4 g iv piggyback 4 g INTRAVENOUS ONCE0.9% NaCl 2-10 mL 2-10 mL INTRAVENOUS q 12 Hnaloxone 0.2 mg injection (NARCAN) 0.2 mg INTRAVENOUS PRNacetaminophen 500-1,000 mg tab(s) (TYLENOL) 500-1,000 mg ORAL q 4 H PRNbupivacaine(PF) 0.1 %, HYDROmorphone (PF) 10 mcg/mL in NaCl 0.9% 300 mLepidural EPIDURAL CONTINUOUSnalbuphine 5 mg injection (NUBAIN) 5 mg INTRAVENOUS q 3 H PRNatorvastatin 40 mg tab(s) (LIPITOR) 40 mg ORAL AT BEDTIMEaspirin, enteric coated 162 mg tab(s) (ASPIRIN, ENTERIC COATED) 162 mgORAL DAILYnitroglycerin sublingual 0.4 mg tab(s) (NITROQUICK) 0.4 mg SUBLINGUAL q 5MIN PRNdextrose 40 % 15 g 15 g ORAL PRNglucagon 1 mg injection (GLUCAGEN) 1 mg INTRAMUSCULAR PRNdextrose 50% in water 25 mL syringe 12.5 g INTRAVENOUS PRNlactated ringers infusion 125 mL/hr INTRAVENOUS CONTINUOUSpotassium chloride ER 20-40 mEq tab(s) (K-DUR, KLOR-CON) 20-40 mEq ORALPRNpotassium chloride iv piggyback 20 mEq/100 mL 20 mEq INTRAVENOUS PRNmagnesium sulfate in water 2 g in sterile water 50 ml 2 g INTRAVENOUSPRN(NO DISPENSE)sodium phosphate 45 mmol in NaCl 0.9% 250 mL 45 mmol INTRAVENOUS PRN(NODISPENSE)ondansetron (PF) 4 mg injection (ZOFRAN) 4 mg INTRAVENOUS q 6 H PRNacetaminophen 1,000 mg tab(s) (TYLENOL) 1,000 mg ORAL q 6 Hketorolac 15 mg injection (TORADOL) 15 mg INTRAVENOUS q 6 H[START ON 10/02/2017] ibuprofen 800 mg tab(s) (MOTRIN) 800 mg ORAL q 8 HHYDROmorphone SUPERVISOR LAUNDRY 0.5 mg/mL in NaCl 0.9% 100 mL INTRAVENOUS CONTINUOUSHYDROmorphone 0.5 mg/mL SUPERVISOR LAUNDRY CLINICIAN DOSE 0.2-0.4 mg 0.2-0.4 mgINTRAVENOUS (PACU) PRNHYDROmorphone 0.5 mg/mL SUPERVISOR LAUNDRY CLINICIAN DOSE 0.2 mg 0.2 mg INTRAVENOUS q 6 HPRNinsulin lispro injection (rapid acting) (HumaLOG) SUBCUTANEOUS q 6 Hheparin 5,000 Units injection 5,000 Units SUBCUTANEOUS q 12 Henoxaparin 40 mg injection (LOVENOX) 40 mg SUBCUTANEOUS DAILYmetoclopramide HCl 10 mg injection (REGLAN) 10 mg INTRAVENOUS q 6 H PRN Normal [facility] Phosphoruson 10-01-2017 Phosphate 3.0 mg/dL Normal 2.5-4.5 [facility] Comment on above: Performed By: #### P T, PTT, AMYL, CMP, LIPA, PHOS ####[facility] [place], [place] [phone]#### TRANSF ####[facility] [place], [place] [phone] Phosphate 4.4 mg/dL Normal 2.5-4.5 [facility] Comment on above: Performed By: #### P T, PTT, AMYL, CMP, LIPA, PHOS ####[facility] [place], [place] [phone]#### TRANSF ####[facility] [address] [place], [place] [phone] THERAPY NTon 10-01-2017 THERAPY NT HNO ID: [id number] thor: Son Salgado (Pt) JacksonService: Physical TherapyAuthor Type: Physical TherapistType: Therapy (PT/OT/Speech/Resp)Filed: 10/01/2017 6:13 PMNote Text:Physical Therapy EvaluationSERVICE DATE: 10/01/2017SERVICE TIME: 1010 to 1045ROOM: [id number] Discharge Disposition: Acute RehabJustification For Post Acute Needs: Anticipate patient will tolerate 3hours of daily therapy at the [facility];Cognition intact;Medically complex;Willing to participate;Livingthe community premorbidly;Good family supportRecommended Discharge Equipment: To Be DeterminedPT Recommendations to Nursing: Other: See Comment (continue to assess)PT 6 Clicks Score: 12Precautions/Activity Restrictions: Fall Risk;Lines/Tubes/Drains;Othe r: SeeComments (mobilize pt)ASSESSMENT :62 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 Pt presents with weakness, decreased activity tolerance,impaired balance, and functional mobility, increasing pt's risk for fallsand reliance on others for assistance. Pt could benefit from skilledtherapy services to address impairments and to maximize function andsafety. Pt lives with family and was functionally independent prior toadmission. Limited mobility assessment performed today due to low BP, butbased on pt's medical complexity, hx, and assessed mobility, it is myrecommendation that he receive skilled therapy services in an ARF.Patient Disposition at Start of Session: Supine in BedPatient Disposition at End of Session: Supine in Bed;Call Werner in ReachTolerance Limited By Other: See Comment (low BP, dizziness)Physical Therapy Problem List: Safety Deficits;Decreased ActivityTolerance;Decreased Strength;Functional Mobility Impairment;BalanceImpairedPa tient /Caregiver Goals: Other: See Comment (improve mobility andfunction)Goals for Plan of Care:Able to perform HEP with: IndependentRolling with: Minimal AssistanceTransfer supine to/from sit with: Minimal AssistanceTransfer sit to/from stand with: Moderate AssistanceAmbulate with: Moderate AssistanceDistance: 50Device: Wheeled WalkerRehab Potential: GoodPLAN:Treatment Frequency (times per week): 1;2 Current admissionTreatment Interventions: Education;Strengthening;Func tional MobilityTraining;Balance Training;Energy Conservation TrainingPlan of Care developed with: PatientTREATMENT INTERVENTIONS:Therapy Diagnosis: Reduced mobility-other;Muscle Weakness (generalized)Interventions Provided: Evaluation;Therapeutic Activity (19201)$ Evaluation-Moderate (67764) Billed Units: 1 unitTherapeutic Activity (28234) Treatment Minutes: 101 unitSkilled Intervention(s): Instructed patient in log roll techniqueInstructed patient in supine to sit pushing with upper extremities to situpInstructed patient in sit to supine using safe, effective techniquePt dangled at EOB, please refer below for further activity detailsInstructed pt on supine therapeutic exercises for LE strengthening andcirculation, encouraging pt to perform as tolerated during his hospitalstayTotal Timed Code Treatment Minutes: 10Total Treatment Time (minutes): 35FUNCTIONAL G CODE:PT 6 Clicks Score: 12 (10/01/17 1010)Mobility: Walking and Moving Around Current Status (G8978): CL ()Mobility: Walking and Moving Around Goal Status (G8979): CK ()Based on clinical assessment and the score on the 6 Clicks FunctionalAssessment Tool, the G code and corresponding severity modifiers aredocumented above.SUBJECTIVE:Current Hospital Course: Chart reviewed; pt admitted for procedureReason for Physical Therapy Consult : mobility assessmentRelevant Past Medical History: HTN, DM, MD, richelle 08/11/17, ARF, refer tochart for full PMHPatient Report: pt agreeable to participate in therapy sessionHome EnvironmentPatient Lives With: Family;Other: See Comment (kids)Assistance Available: Part timeEntry To Home: Stairs;Without RailNumber Of Stairs Into Home: 2Number Of Stairs To Bed/Bath: 1st floor bed and bathTub/Shower Type: stall showerLaundry: kids perform laundry tasksEquipment Owned: Cane;Standard WalkerPrior Functional Level: Required Assistance;Other: See Comment (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, 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)Assistance Required With: Cleaning;Laundry;Meals;Other : See Comment(Shares IADL's)OBJECTIVE:CURRENT FUNCTIONAL STATUS:Current Functional Mobility Assist Level Additional InformationRolling Moderate AssistanceSupine to Sit Maximal AssistanceSit to Supine Maximal AssistanceScooting Moderate AssistanceSit to StandStand to SitBed to ChairToilet/CommodeGaitStair sCurb StepCar TransferBalance: Static SittingStatic Sitting Balance: Minimal Assistance (min to CGA)Activity Tolerance: Sitting ActivitySitting Activity: Pt dangled at EOB for strengthening, balance, and toallow his body to adjust ot upright position. Pt required min assistanceto maintain balance initially and then able to maintain with CGA/SBA. Ptreports dizziness when seated, BP taken to be 76/52, pt assisted in thesupine position where pt reports dizziness improved, RN notifiedSitting Activity Tolerance (in minutes): 4Please see discipline specific clinical documentation flowsheet forcomplete details for this therapy evaluation/treatment.SIGNATU RE: Son Ellington, PT PATIENT NAME: Rocio JacksonDATE: October 01, 2017 : 6:08 PM PAGER/CONTACT #: [phone] [facility] ANES Ila 09-30-2017 ANES POST HNO ID: [id number] thor: Bogdan Montenegro, IService: AnesthesiologyAuthor Type: AnesthesiologistType: Anesthesia PostOpFiled: 09/30/2017 5:54 PMNote Text:POST ANESTHESIA EVALUATION NOTESERVICE DATE: 09/30/2017SERVICE TIME: 5:52 PMDOB: 1955Vitals: 09/30/1816Temp: 36.7 ?C (98.1 ?F) 37.4 ?C (99.3 ?F) 09/30/1816rterial BP 1: 155/78 154/76 154/77BP: 110/88 10/01/1807Pulse: 76 78 93 93 10/01/1807Resp: 16 18 23 24 10/01/1807SpO2: 98% 100% 100% 100%Validated Vital Signs: YesPOST ANES STATUS: PACU/ICU Patient Condition: StableNeurological Status: Sleepy but arousable.Pulmonary Status: Breathing comfortably on supplemental oxygen.Airway Control: Returned to baseline unsupported.Cardiovascular Status: StablePain: Adequately controlledPostoperative Nausea/Vomiting: No significant post operative nausea orvomitingPostoperative Hydration Status: Adequate.Anesthetic Complications: NoneRecommendation: Continue current plan of careOther Remarks:SIGNATURE: Bogdan Montenegro MD PATIENT NAME: Rocio JacksonDATE: September 30, 2017 : 5:52 PM PAGER/CONTACT #: [phone] [facility] ANES PREOPon 09-30-2017 ANES PREOP HNO ID: [id number] thor: Brian BarriossService: AnesthesiologyAuthor Type: AnesthesiologistType: Anesthesia PreOpFiled: 09/30/2017 8:34 AMNote Text:REGIONAL ANESTHESIOLOGY DAY OF SURGERY NOTEPATIENT NAME: Rocio JacksonMRN: [id number]: 1955Procedure(s) (LRB):LAPAROSCOPY DIAGNOSTIC (N/A)WHIPPLE PROCEDURE, WITH PANCREATOJEJUNOST (N/A)Surgeon(s):Michael Cedillo) AugustinEstimated body mass index is 26.76 kg/(m2) as calculated from thefollowing: Height as of 09/24/17: 172.7 cm (5' 8 ). Weight as of 09/24/17: 79.8 kg (176 lb).ASA Class: 3Adequate NPO status: YesAllergies:ALLERGIESNo Known AllergiesAirway Assessment: MP 2; Neck ROM: Full ROM without neurologic symptoms;Airway Evaluation: No significant abnormalitiesDentition: Teeth intactSymptoms of Sleep Apnea: DeniesMost recent lab results:Hemoglobin 8.6 09/24/2017Hematocrit 29.1 09/24/2017Potassium 4.7 09/24/2017Platelet Count 354 09/24/2017PT Sec 11.1 09/24/2017APTT 24.9 09/24/2017PT INR 1.1 09/24/2017Creatinine 0.68 09/24/2017EKG:SINUS RHYTHMLEFT AXIS DEVIATIONANTEROSEPTAL INFARCT, age unknownAbnormal ECGVitals:There were no vitals filed for this visit.Previous Anesthesia: No history of adverse event Family history ofanesthetic problems: NoneAdditional Physical Exam:Lungs: Lungs clear to auscultation. Good diaphragmatic excursion.Cardiac: Normal S1 and S2; no rubs, no murmurs and no gallopsAdditional pertinent findings: N/AOther Medical Problems/ Important Considerations:Denies chest pain and SOB with exertion.Denies change in functional capacity.Denies GERD.HTNNIDMHx MD s/p stent 2010; no issues sinceBaseline anemiaChronic Beta Juni medication administered within 24 hours: YesAnesthetic risks, benefits, alternatives, personnel and consent discussed:YesPatient agrees to proceed: YesBlood Products: Will accept; 4 units type and crossed for ORAnesthetic Plan: General ETT; Arterial Line; CVP with MAC Catheter;Standard ASA Monitors; large bore accessPain Management Plan: Parenteral or Oral; pre op thoracic epidural perAPMSEPIC Chart ReviewACTIVE PROBLEM LISTDuodenal ObstructionSevere Protein-Calorie Malnutrition (Hcc)Duodenal Cancer (Hcc)PAST MEDICAL HISTORYDiagnosis Date- Bleeding ulcer 11/15/2016 required 5 blood transfusions- Diabetes mellitus (HCC) 2016- Glaucoma- Hypertension- Myocardial infarction (HCC) 05/15/2011PAST SURGICAL HISTORYProcedure Laterality Date- ANGIOPLASTY HX 05/15/2011 2 stents s/p MD;[facility]- CHOLECYSTECTOMY 08/11/2017 [facility]- PICC LINE INSERT/CONSULT 08/16/2017No family history on file.Social History:Social HistorySubstance Use Topics- Smoking status: Former Smoker Types: Cigarettes Quit date: 2010- Smokeless tobacco: Never Used- Alcohol use 1.5 oz/week 1 Cans of Beer (12oz) per week Comment: occasional beerNo current facility-administered medications on file prior to encounter.Current Outpatient Prescriptions on File Prior to Encounter:apixaban (ELIQUIS) 5 mg tab(s) Take 1 tablet by mouth twice daily.metoprolol tartrate, short acting, (LOPRESSOR) 50 mg tablet Take 1 tabletby mouth every 12 hours.acetaminophen (TYLENOL) 325 mg tablet Take 2 tablets by mouth every 6hours as needed.aspirin, enteric coated (ECOTRIN LOW STRENGTH) 81 mg EC tablet Take 162 mgby mouth once daily.atorvastatin (LIPITOR) 40 mg tablet Take 40 mg by mouth daily at bedtime.metFORMIN (GLUCOPHAGE) 1,000 mg tablet Take 1,000 mg by mouth twice dailywith meals.Omeprazole Magnesium 20 mg cpDR Take 20 mg by mouth twice daily.nitroglycerin sublingual (NITROSTAT) 0.4 mg SL tablet Dissolve 0.4 mgunder the tongue every 5 minutes as needed.sAXagliptin (ONGLYZA) 5 mg tab Take by mouth once daily.Inpatient medications reviewed in EPIC.I have interviewed and examined the patient. I have reviewed the medicalrecord and/or the pre-anesthesia evaluation, pertinent labs, and testresults.Significant changes in the patient's condition since the History andPhysical, not otherwise documented in primary service progress notes: NoThis contains updated information obtained within 48 hours ofSurgery/Procedure.SIGNATUR E: Brian Orona MD PATIENT NAME: Rocio Sibley: September 30, 2017 : 8:29 AM PAGER/CONTACT #: [phone] (pager) Normal [facility] APTTon 09-30-2017 aPTT 25.9 s Normal 23.0-32.4 [facility] Comment on above: Result Comment: Unfr actionated Heparin Therapeutic Ranges:Standard Heparin Nomogram: 53 to 78 seconds (anti-Xa level of 0.3 to 0.7 U/ml)Low Dose/ACS Nomogram: 49 to 67 seconds (anti-Xa level of 0.2 to 0.5 U/ml)Stroke Treatment Nomogram: 49 to 67 seconds (anti-Xa level of 0.2 to 0.5 U/ml)Note: The APTT therapeutic range has been determined for the current lot of laboratory APTT reagent in use throughout the [facility]. Performed By: #### P T, PTT, AMYL, CMP, LIPA, PHOS ####[facility] [place], [place] [phone]#### TRANSF ####[facility] [place], [place] [phone] BRIEF OP NOTon 09-30-2017 BRIEF OP NOT HNO ID: [id number] thor: Mundo (Res)(Hist) ElvaisService: General SurgeryAuthor Type: ResidentType: Brief Op NoteFiled: 09/30/2017 5:02 PMNote Text:BRIEF OP NOTELOG ID: [id number]/Procedure Date: 09/30/2017Incision/Procedure Start Time: 9:40 AMIncision Close/Procedure End Time: 4:46 PMSurgeon(s)/Proceduralist(s ) and Principal Embedded Software Engineer(s):Surgeon(s) and Role: * Michael Cedillo) Jolley - Primary * Mundo (Res)(Hist) Kay - Resident - AssistingProcedure(s): diagnostic laparoscopy, classic whippleAnesthesia: GeneralFindings: duodenal mass with distal duodenal distortion. No evidence ofperitoneal or liver metastases. R liver lobe old hematoma, released.Classic Whipple. R ROMINA anterior to HJ, L ROMINA posterior to PJ.Estimated Blood Loss: 500 mlsUOP 410 cc3x PRBC, 5700 crystalloids, 500 cc 5% albuminSpecimens:Pancreatic duct margin for frozen - negative for malignancyDuodenal margin for frozen - negative for malignancyBile duct margin for frozen - negative for malignancyPancreaticoduodene ctomy (one tail - SMA, two tails - portal vein)Additional small bowelCommon bile duct stent - culturePeriportal lymph nodePylorus and duodenal staple lineComplications: NonePre-Op/Pre-Procedure Diagnosis: duodenal massPost-Op/Post-Procedure Diagnosis: Duodenal obstruction [K31.5], sameSIGNATURE: Mundo Vilalnueva MD PATIENT NAME: Rocio JacksonDATE: September 30, 2017 : 4:58 PM PAGER/CONTACT #: Normal [facility] CBCon 09-30-2017 Erythrocyte distribution width Auto Ratio (RBC) 16.2 % High 11.5-15.0 [facility] Comment on above: Performed By: #### P T, PTT, AMYL, CMP, LIPA, PHOS ####[place] [address]#### TRANSF ####[place] [phone] Erythrocytes (RBC) 3.96 10*6/uL Low 4.20-6.00 [facility] Comment on above: Performed By: #### P T, PTT, AMYL, CMP, LIPA, PHOS ####[place] [address]#### TRANSF ####[place] [phone] Hematocrit (HCT) 30.7 % Low 39.0-51.0 [facility] Comment on above: Performed By: #### P T, PTT, AMYL, CMP, LIPA, PHOS ####[place] [address]#### TRANSF ####[place] [phone] Hemoglobin mass conc (Bld) 10.1 g/dL Low 13.0-17.0 [facility] Comment on above: Performed By: #### P T, PTT, AMYL, CMP, LIPA, PHOS ####[place] [address]#### TRANSF ####[place] [phone] MCH 25.5 pG Low 26.0-34.0 [facility] Comment on above: Performed By: #### P T, PTT, AMYL, CMP, LIPA, PHOS ####[place] [address]#### TRANSF ####[place] [phone] MCHC mass conc (RBC) 32.9 g/dL Normal 30.5-36.0 [facility] Comment on above: Performed By: #### P T, PTT, AMYL, CMP, LIPA, PHOS ####[place] [phone]#### TRANSF ####[address] [phone] MCV 77.5 fL Low 80.0-100.0 [facility] Comment on above: Performed By: #### P T, PTT, AMYL, CMP, LIPA, PHOS ####[place] [address]#### TRANSF ####[address] Av[place] [phone] Platelet mean volume (PMV) 9.4 fL Normal 9.0-12.7 [facility] Comment on above: Performed By: #### P T, PTT, AMYL, CMP, LIPA, PHOS ####[address]#### TRANSF ####[place] [phone] Platelets 242 10*3/uL Normal 150-400 [facility] Comment on above: Performed By: #### P T, PTT, AMYL, CMP, LIPA, PHOS ####[place] [address]#### TRANSF ####[address] [place] [phone] WBC (Leukocytes) 7.14 10*3/uL Normal 3.70-11.00 [facility] Comment on above: Performed By: #### P T, PTT, AMYL, CMP, LIPA, PHOS ####[place] [phone]#### TRANSF ####[place] [phone] CBC and Differentialon 09-30 Abs Baso <0.03 Normal <0.11 [facility] Comment on above: Performed By: #### P T, PTT, AMYL, CMP, LIPA, PHOS ####[place] [address]#### TRANSF ####[place] [phone] Abs [place] 0.48 k/uL Normal <0.87 [facility] Comment on above: Performed By: #### P T, PTT, AMYL, CMP, LIPA, PHOS ####[place] [address]#### TRANSF ####[place] [phone] Abs Neut 6.37 k/uL Normal 1.45-7.50 [facility] Comment on above: Performed By: #### P T, PTT, AMYL, CMP, LIPA, PHOS ####[place] [address]#### TRANSF ####[place] [phone] Basophils/100 WBC Auto (Bld) 0.0 % Normal [facility] Comment on above: Performed By: #### P T, PTT, AMYL, CMP, LIPA, PHOS ####[place] [address]#### TRANSF ####[place] [phone] DTYPE Auto Diff Normal [facility] Comment on above: Performed By: #### P T, PTT, AMYL, CMP, LIPA, PHOS ####[place] [address]#### TRANSF ####[address] [phone] Eosinophils 10*3/uL Normal <0.46 [facility] Comment on above: Performed By: #### P T, PTT, AMYL, CMP, LIPA, PHOS ####[place] [address]#### TRANSF ####[place] [phone] Eosinophils/100 leukocytes 0.0 % Normal [facility] Comment on above: Performed By: #### P T, PTT, AMYL, CMP, LIPA, PHOS ####[place] [address]#### TRANSF ####[place] [phone] Erythrocyte distribution width Auto Ratio (RBC) 15.9 % High 11.5-15.0 [facility] Comment on above: Performed By: #### P T, PTT, AMYL, CMP, LIPA, PHOS ####[place] [address]#### TRANSF ####[place] [phone] Erythrocytes (RBC) 3.70 10*6/uL Low 4.20-6.00 [facility] Comment on above: Performed By: #### P T, PTT, AMYL, CMP, LIPA, PHOS ####[place] [address]#### TRANSF ####[place] [address] Hematocrit (HCT) 28.9 % Low 39.0-51.0 [facility] Comment on above: Performed By: #### P T, PTT, AMYL, CMP, LIPA, PHOS ####[place] [address]#### TRANSF ####[place] [phone] Hemoglobin mass conc (Bld) 9.4 g/dL Low 13.0-17.0 [facility] Comment on above: Performed By: #### P T, PTT, AMYL, CMP, LIPA, PHOS ####[place] [address]#### TRANSF ####[place] [phone] Lymphocytes 1.39 10*3/uL Normal 1.00-4.00 [facility] Comment on above: Performed By: #### P T, PTT, AMYL, CMP, LIPA, PHOS ####[place] [address]#### TRANSF ####[place] [phone] Lymphocytes/100 leukocytes 16.9 % Normal [facility] Comment on above: Performed By: #### P T, PTT, AMYL, CMP, LIPA, PHOS ####[place] [address]#### TRANSF ####[place] [phone] MCH 25.4 pG Low 26.0-34.0 [facility] Comment on above: Performed By: #### P T, PTT, AMYL, CMP, LIPA, PHOS ####[address]#### TRANSF ####[place] [phone] MCHC mass conc (RBC) 32.5 g/dL Normal 30.5-36.0 [facility] Comment on above: Performed By: #### P T, PTT, AMYL, CMP, LIPA, PHOS ####[place] [address]#### TRANSF ####[place] [phone] MCV 78.1 fL Low 80.0-100.0 [facility] Comment on above: Performed By: #### P T, PTT, AMYL, CMP, LIPA, PHOS ####[place] [address]#### TRANSF ####[place] [phone] Monocytes/100 leukocytes 5.8 % Normal [facility] Comment on above: Performed By: #### P T, PTT, AMYL, CMP, LIPA, PHOS ####[place] [address]#### TRANSF ####[place] [phone] Neutrophils/100 WBC Auto (Bld) 77.3 % Normal [facility] Comment on above: Performed By: #### P T, PTT, AMYL, CMP, LIPA, PHOS ####[place] [address]#### TRANSF ####[place] [phone] Platelet mean volume (PMV) 9.7 fL Normal 9.0-12.7 [facility] Comment on above: Performed By: #### P T, PTT, AMYL, CMP, LIPA, PHOS ####[place] [address]#### TRANSF ####[place] [phone] Platelets 231 10*3/uL Normal 150-400 [facility] Comment on above: Performed By: #### P T, PTT, AMYL, CMP, LIPA, PHOS ####[place] [address]#### TRANSF ####[place] [phone] WBC (Leukocytes) 8.24 10*3/uL Normal 3.70-11.00 [facility] Comment on above: Performed By: #### P T, PTT, AMYL, CMP, LIPA, PHOS ####[place] [address]#### TRANSF ####[place] [phone] Comp Metabolic Panelon 09-30 Alanine aminotransferase (ALT) 46 U/L Normal 5-50 [facility] Comment on above: Performed By: #### P T, PTT, AMYL, CMP, LIPA, PHOS ####[place] [address]#### TRANSF ####[place] [phone] Albumin 3.1 g/dL Low 3.5-5.0 [facility] Comment on above: Performed By: #### P T, PTT, AMYL, CMP, LIPA, PHOS ####[address]#### TRANSF ####[place] [phone] Alkaline phosphatase (ALP) 91 U/L Normal 40-150 [facility] Comment on above: Performed By: #### P T, PTT, AMYL, CMP, LIPA, PHOS ####[place] [address]#### TRANSF ####[place] [phone] Anion gap 11 mmol/L Normal 9-18 [facility] Comment on above: Performed By: #### P T, PTT, AMYL, CMP, LIPA, PHOS ####[place] [address]#### TRANSF ####[place] [phone] Aspartate aminotransferase (AST) 48 U/L High 7-40 [facility] Comment on above: Performed By: #### P T, PTT, AMYL, CMP, LIPA, PHOS ####[place] [address]#### TRANSF ####[place] [address] Bilirubin (total) 0.5 mg/dL Normal 0.0-1.5 [facility] Comment on above: Performed By: #### P T, PTT, AMYL, CMP, LIPA, PHOS ####[place] [address]#### TRANSF ####[place] [phone] Calcium 7.8 mg/dL Low 8.5-10.5 [facility] Comment on above: Performed By: #### P T, PTT, AMYL, CMP, LIPA, PHOS ####[place] [address]#### TRANSF ####[place] [phone] Chloride 105 mmol/L Normal 98-110 [facility] Comment on above: Performed By: #### P T, PTT, AMYL, CMP, LIPA, PHOS ####[place] [address]#### TRANSF ####[place] [address] CO2 24 mmol/L Normal 23-32 [facility] Comment on above: Performed By: #### P T, PTT, AMYL, CMP, LIPA, PHOS ####[place] [phone]#### TRANSF ####[phone] Creatinine 0.65 mg/dL Low 0.70-1.40 [facility] Comment on above: Performed By: #### P T, PTT, AMYL, CMP, LIPA, PHOS ####[place] [phone]#### TRANSF ####[place] [address] eGFR (non-black) mL/min/{1.73_m2} Normal >60 [facility] Comment on above: Performed By: #### P T, PTT, AMYL, CMP, LIPA, PHOS ####[address]#### TRANSF ####[place] [phone] Glucose mass conc 157 mg/dL High 65-100 [facility] Comment on above: Performed By: #### P T, PTT, AMYL, CMP, LIPA, PHOS ####[place] [phone]#### TRANSF ####[place] [phone] Potassium molar conc 4.9 mmol/L Normal 3.5-5.0 [facility] Comment on above: Performed By: #### P T, PTT, AMYL, CMP, LIPA, PHOS ####[place] [address]#### TRANSF ####[place] [phone] Protein 5.8 g/dL Low 6.0-8.4 [facility] Comment on above: Performed By: #### P T, PTT, AMYL, CMP, LIPA, PHOS ####[place] [address]#### TRANSF ####[place] [phone] Sodium 140 mmol/L Normal 135-146 [facility] Comment on above: Performed By: #### P T, PTT, AMYL, CMP, LIPA, PHOS ####[place] [address]#### TRANSF ####[place] [address] Urea nitrogen 18 mg/dL Normal 10-25 [facility] Comment on above: Performed By: #### P T, PTT, AMYL, CMP, LIPA, PHOS ####[place] [address]#### TRANSF ####[place] [phone] Fibrinogenon 09-30-2017 Fibrinogen 257 mg/dL Normal 200-400 [facility] Comment on above: Performed By: #### P T, PTT, AMYL, CMP, LIPA, PHOS ####[place] [address]#### TRANSF ####[place] [phone] Lactateon 09-30-2017 Lactate 2.3 mmol/L High 0.4-2.0 [facility] Comment on above: Performed By: #### P T, PTT, AMYL, CMP, LIPA, PHOS ####[place] [address]#### TRANSF ####[place] [phone] NURSING PROGon 09-30-2017 NURSING PROG HNO ID: [id number] thor: Sandrita KenRn) Clayton Guerraice: (none)Author Type: Registered NurseType: Nursing Progress NoteFiled: 09/30/2017 4:15 PMNote Text: Nursing Progress NotePatient Name: Rocio Boudreaux: [id number] Location: /IV-CDRU-13 ____Daily Note:1043- family updated via pager [id number]- family updated vis pager [id number]- family updated via pager [id number]- family updated via pager [id number]- family updated via pager [phone] Family update via pager [id number] family notified of closure start time. Requested family to return Rajat waiting roomThis note was completed by: Sandrita Guerra RN [facility] NURSING PROG HNO ID: [id number] thor: Kevin KenRn) Clayton Beltranice: (none)Author Type: Registered NurseType: Nursing Progress NoteFiled: 09/30/2017 9:46 AMNote Text: Nursing Progress NotePatient Name: Rocio HayesN: [id number] Location: ____ Patient's family updated at 9:44 AM about status of procedure per MD Ainsley.This note was completed by: Kevin Beltran RN [facility] NURSING PROG HNO ID: [id number] thor: Mirian KenRn) MOUSTAPHA Albrechtervice: NursingAuthor Type: Registered NurseType: Nursing Progress NoteFiled: 09/30/2017 8:38 AMNote Text:Dr Sánchez at bedside to complete a preop block the operative permit wassigned and a huddle was completed wotj Dr Jolley present. Correctpatient, correct procedure identified and patient positioned on side ofbed in sitting position. A sign in, time out was completed, pt premedicated with versed 2 mg via iv. Vitals stable, epidural injection andcath completed by Dr Sánchez with test dose injected. Pt toleratedprocedure well vitals stable. Procedure complete and pt repositioned oncart with hob up 15 degree and side rails up X2. Normal [facility] OPERATIVE NOon 09-30-2017 OPERATIVE NO HNO ID: [id number] thor: Michael () KrishnainService: General SurgeryAuthor Type: PhysicianType: Operative ReportFiled: 10/05/2017 7:03 PMNote Text:[facility] - Operative ReportFRISCH, DEANDOB: 1955 AGE: 62 SEX: MMRN: [id number] ACCTNUM: [id number] SVC: INT LOCATION: [id number] PHYSICIAN: Michael Jolley, MDDATE OF PROCEDURE: 09/30/2017PREOPERATIVE DIAGNOSIS:1. Duodenal cancer.2. Gastric outlet obstruction.3. Biloma status post percutaneous drainage.4. Hematoma in the gallbladder fossa.POSTOPERATIVE DIAGNOSIS: Same.NAME OF OPERATION:1. Diagnostic laparoscopy.2. Pancreatic duodenectomy.SURGEON: Michael Jolley MDASSISTANT: Mundo Villanueva M.D.ANESTHESIA: General endotracheal anesthesia.COMPLICATIONS: None.ESTIMATED BLOOD LOSS: 5 cc.SPECIMENS:1. Pancreatic duct margin.2. Duodenal margin.3. Bile duct margin.4. Pancreatoduodenectomy specimen.5. Common bile duct stent.6. Periportal lymph node.7. Pyloric and duodenal staple line.WOUND CLASS: C.DRAINS: A pancreatic drain from the left side and ahepaticojejunostomy drain from the right side.INDICATION: The patient is a pleasant 62-year-old male who [facility] with intraabdominal abscesses afterhaving undergone a cholecystectomy on hind site. He underwent anEGD which revealed a duodenal cancer [place] He at the time of that admission was notedto have a bile leak from the cystic duct stump leak, which was controlled with a PTC. His bilomas were drained. The gastric outlet obstructionwas managed endoscopically, which is dilation and the patient slowlyimproved with control of sepsis. He was tolerating a GI soft diet, wasdischarged home and then followed up back for surgery with regard tothe duodenal cancer. The patient underwent a metastatic workup whichdid not reveal any evidence of metastasis. His nutritional status wasappropriate prior to surgery.OPERATIVE FINDINGS:1. This was quite a difficult case related to previous abscesses andhematomas taking at least 1-2 hours extra for dissection. Please place amodifier for the same.2. The pancreatic duct margin, the bile duct margin as well as theduodenal margin were all noted to be negative intraoperatively.3. A classic Whipple was performed.PROCEDURE: The patient was identified and brought to the operating room, placed supine on the operating table, anesthesia was induced. Theabdomen was prepped and draped in usual surgical fashion. A 5-mm leftupper quadrant incision was made. Entry was gained to theabdomen using standard Optiview technique. Diagnostic laparoscopy wasperformed. No evidence of any metastasis was noted. A midlinelaparotomy was created from the epigastrium all the way to below theumbilicus. Dissection was continued down to the fascia, which was incisedand the abdominal wall was retracted. The falciform ligament was takendown using the LigaSure device. Dense adhesions of the stomach to theleft lateral segment as well as to the hilum were all noted. Thesewere all slowly tediously taken down. A large hematoma cavity was notedin the gallbladder fossa. This was all slowly dissected out and theduodenum was out from all of the structures. Finally, wewere able to perform a Lalo maneuver which noted that the SMApulsations were from the cancer. We subsequently proceeded totransect the gastrocolic omentum follow the gastroepiploic vessel allthe way to the PV. The SMV was dissected out. The gastroepiploicvessel was taken between silk ligatures. The PV tunnel was created.Next, the pars flaccida had already been opened. The hilum wasencircled. To ensure safe dissection, the hepatic artery wasidentified. The gastroduodenal artery was identified. Thegastroduodenal artery was taken between silk ligatures. After confirmingpulses in the hilum, an additional 5-0 Prolene was used to secure the GDAstump. The duodenum was divided just in the post pyloric region and thestomach was packed away in the left upper quadrant. The portal vein wasidentified posterior to the hepatic artery. The bile duct wasencircled in the supraduodenal area. We did not make an attempt toidentify the cystic duct. This area was extremely scarred relatedto the infection of the hematoma prior. Next we proceeded withtransecting the jejunum approximately 30 cm distal to the ligament ofTreitz. This dissection was carried down to the ligament of Treitz,which was transected. The jejunum was passed into the supracoliccompartment. At this time, stay sutures were placed on thepancreas superiorly and inferiorly. The pancreas was transected on topof the clamp. Bleeding was controlled with Aquamantys. The pancreaticduct margins were sent. The duodenal margin was also sent previouslyand was noted to be negative for cancer. The pancreas was taken offthe portal vein. Branches of blood vessels were clamped, tied,and transected as noted. Finally, the uncinate process was separatedoff the SMA using the [place] LigaSure as well as the PV. The bileduct was transected. The margin was sent and the specimen was noted maged free. The bile duct margin was also noted to be negative. Thespecimen was marked and passed down to Pathology. We next proceededwith reconstruction. The jejunal staple line was Lemberted usingsilk. A 2-layered modified Blumgart pancreaticojejunostomy was createdof the posterior layer and the anterior layer using Prolene and theinner layer was using 5-0 PDS in an interrupted fashion over a 5-Frenchfeeding tube. Hepaticojejunostomy was created next using multipleinterrupted 5-0 PDS sutures for both the back layer and the and theanterior layer. Finally, the jejunum was brought antecolically to create a duodenojejunostomy; however, when the staple line ofthe duodenum was transected, multiple polyps were noted in the duodenum. Thus an antrectomy was performed and a 2-layered gastrojejunostomy wascreated using silk and 2-0 PDS after taking a part of the staple lineout. Prior to completion of this anastomosis, a Corpak was passeddistally and an NG was fashioned in the stomach. The abdomen was nextinspected. No evidence of any bleeding or other complications was noted.The PJ drain and an HJ drain were placed. A PJ drain was placedposterior to the PJ and an HJ was placed anterior to the HJ. The PTCwas maintained during this operation and was left high above the HJ.The abdomen was irrigated with many liters of saline. The fasciawas closed using continuous running Maxon, starting both superiorlyand inferiorly and tying the knot towards the middle. The skin wasclosed using multiple interrupted 3-0 Vicryl. A sterile dressing wasplaced on the incision. The patient tolerated the procedure withoutcomplications. I was present and scrubbed in throughout the operation. Please refer to the brief op note for the start time and the end time.GAEL Lomeliept Of SurgeryTA:[id number]/2018jhD: 10/02/2017 17:34:33T: 10/03/2017 03:14:36Job #: [id number] [facility] PROCEDUREon 09-30-2017 PROCEDURE HNO ID: [id number] thor: Yrn Cedillo) Trishe: Pain ManagementAuthor Type: AnesthesiologistType: ProceduresFiled: 09/30/2017 10:44 AMNote Text:EPIDURAL PROCEDURE NOTESERVICE DATE: 09/30/2017Incision/Procedure Start Time: 817Incision Close/Procedure End Time: 828PROCEDURE: Bilateral T9-10 Epidural catheter placementCatheter Used: YesINDICATION: Postoperative surgical pain S/P whipple.Diagnosis: acute post op painEpidural/Nerve Block for postop pain per surgeon's request: YesInformed Consent Obtained: YesSign in Communication: CompletedTime Out: Team Confirms the Correct Patient, Correct Procedure, CorrectSite and Site Marking, Correct Position (if applicable), Prep and Dry Time(if applicable). Time: 817Affirmation of Time Out: YESSign Out Discussion: CompletedPre Procedure Neuro Examination:SENSORY: IntactMOTOR: IntactProcedure:? Vital signs were monitored during the procedure.? Sterile prep and drape in a regular fashion (also head cover, mask andsterile gloves were used).? Skin prep: Povidone Iodine? The anatomical landmarks were identified using palpation.? Skin infiltration with Lidocaine using 27g needle.? 17g 3.75 inches Touhy needle was used.? Midline technique was used to approach epidural space.? Epidural space was identified using loss of resistance tosaline.Epidural catheter placed 5 centimeter past needle tip.? Aspiration for Heme/CSF was negative.? 5 mL test dose given using Lidocaine 1.5% + Epi 1:200,000.? Catheter placed and taped in place: Yes. Tunneled: No.? Catheter placed and taped in place.? Patient reported significant pain relief with sensory and motor changesin the appropriate distribution of nerve block.? Controlled Drug(s) Used: midazolam (Amount Given: 1 Amount Wasted: 1)? No difficulties encountered.Estimated Blood Loss if > Minimal Noted HerePatient tolerated procedure well.Complications: NonePost Procedure Neuro Examination:SENSORY: changes along nerve distributionMOTOR: N/ASIGNATURE: Yrn Sánchez MD PATIENT NAME: Rocio JacksonDATE: September 30, 2017 : 10:40 AM PAGER/CONTACT #: [phone] [facility] PT EDon 09-30-2017 PT ED HNO ID: [id number] thor: Celina (Rn) MOUSTAPHA Wagnerervice: NursingAuthor Type: Registered NurseType: Patient EducationFiled: 09/30/2017 8:51 AMNote Text:PATIENT EDUCATION TOPIC: PROCEDURE / SURGERY: Pre-op Teaching: SurgicalSafety PrinciplesPATIENT NAME: Rocio JacksonMRN: [id number] LOCATION: [place] [id number] S TO LEARNCOGNITIVE ABILITY: Alert and orientedMOTIVATION TO LEARN: EagerFAMILY SUPPORT: High - Very involved in pt careINSTRUCTION PROVIDED TO: Patient and family memberPATIENT LEARNS BEST BY: Individual InstructionFACTORS AFFECTING LEARNING: NonePHYSICAL LIMITATIONS AFFECTING LEARNING: Other Limitations MEMORY LOSSLEARNING RESPONSEDIAGNOSIS: ADULT: WHIPPLEPATIENT/FAMILY RESPONSE: Verbalizes understanding of: [id number] rrect action to take to follow pre-operative instructionsMETHOD OF INSTRUCTION: Individual instructionFOLLOW-UP PLAN: Complete - No need for follow-upINSTRUCTIONAL AIDS USED: NASUPPLEMENTAL MATERIAL PROVIDED TO PATIENT: NoneREFERRAL (RECOMMENDATION): NoneElectronically Signed By: Celina Wagner RN Normal [facility] Protimeon 09-30-2017 INR Coag RelTime (Bld) 1.2 {INR} Normal 0.9-1.3 [facility] Comment on above: Result Comment: Tayler min K Antagonist (VKA) Therapeutic Range: INR 2 to 3 (Target INR of 2.5)Note: For patients treated with VKA drugs, such as warfarin, the [employer] [employer] 2012 Guideline recommends a therapeutic INR range of 2 to 3 (target INR of 2.5). This recommendation includes high-risk patients with antiphospholipid syndrome with previous arterial or venous thromboembolism, current-generation mechanical or bioprosthetic aortic heart valve replacement.Note: Patients with mechanical aortic valve replacement and additional risk factors for thromboembolic events (atrial fibrillation, previous thromboembolism, LV dysfunction, hypercoagulable conditions) or an older generation mechanical AVR (i.e., ball in-Cage) or any mechanical MVR should have a INR therapeutic range of 2.5 to 3.5 (target INR of 3).Keegan GH, et al. Chest 2012, 141:7S-47SNishimura RA, et al. JAC 2017, 70: 252-289 Performed By: #### P T, PTT, AMYL, CMP, LIPA, PHOS ####[address] [phone]#### TRANSF ####[address] [phone] PT Sec 12.2 sec Normal 9.7-13.0 [facility] Comment on above: Performed By: #### P T, PTT, AMYL, CMP, LIPA, PHOS ####[address] [phone]#### TRANSF ####[address] [phone] SURGICAL PATHOLOGYon 018 SURGICAL PATHOLOGY [facility]: [id number] Physician: MICHAEL JOLLEY MD FINAL DIAGNOSIS1. Duodenal margin, excision (A) Segment of duodenum, negative formalignancy.2. Pancreatic duct margin, excision (B) Pancreatic parenchyma, negativefor malignancy.3. Bile duct margin, excision (C) Bile duct, negative for malignancy.4. 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 - Metastatic adenocarcinoma involving three of eleven lymph nodes (3/11).- Lymphovascular invasion and perineural invasion are seen.- Surgical resection margins are free of tumor.- See synoptic report.5. Small bowel, excision (E) Segment of small bowel with fibrous serosaladhesions. 6. Periportal lymph node, excision (F) - One lymph node, negative formalignancy (0/1).7. Pylorus and duodenal suture line, excision (G) Segment of inflamedantral gastric mucosa, pylorus, and duodenum with serositis and fibrousserosal adhesions.WILBER/DANIELLE/mireille/10/05/18SY NOPTIC REPORT OF FIGUEROA PATHOLOGIC FINDINGSPANCREATICODUODENECT JULIO: AMPULLA OF VATER WORKSHEETProcedure: Pancreaticoduodenectomy (Whipple resection)Tumor Site: Papilla of Vater (junction of ampullary and duodenal mucosa)Histologic Type: AdenocarcinomaHistologic Grade: G3: Poorly differentiatedTumor Size: Greatest dimension: 4.5 cm Additional dimension: 3 cm Additional dimension: 1.7 cmTumor Extension: Tumor invades into duodenal submucosa Tumor invades into muscularis propria of the duodenum Tumor directly invades pancreas up to 0.5 cm Tumor extends into peripancreatic soft tissues Tumor extends into duodenal serosaTissue Specimen Type: Pancreaticoduodenal Resection SpecimenMargins: Pancreatic neck/parenchymal margin uninvolved by pancreatichigh-grade intraepithelial neoplasm and invasive carcinoma Distance of invasive carcinoma from margin: 4.5cm Distance of invasive carcinoma from margin: 4.5cm Uncinate (Retroperitoneal/Superior Mesenteric Artery) marginuninvolved by invasive carcinoma Distance of invasive carcinoma from margin: 2cm Bile duct margin uninvolved by high-grade dysplasia and invasivecarcinoma Distance of invasive carcinoma from margin: 3.7 cm Proximal margin (Gastric or Duodenal) uninvolved by high-gradedysplasia and invasive carcinoma Proximal margin (Gastric or Duodenal) uninvolved by invasivecarcinoma Distal margin (Distal Duodenal or Jejunal) uninvolved by high-gradedysplasia and invasive carcinoma Distal margin (Distal Duodenal or Jejunal) uninvolved by invasivecarcinomaLymphovascu lar Invasion: PresentPerineural Invasion: PresentPathologic Stage Classification (pTNM, AJCC 8th Ed)TNM Descriptors: Not applicablePrimary Tumor (pT): pT3b: Tumor extends more than 0.5 cm into the pancreas, or extendsinto peripancreatic tissue or periduodenal tissue or duodenal serosawithout involvement of the celiac axis or superior mesenteric arteryRegional Lymph Nodes (pN): pN1: Metastasis to one to three regional lymph nodes Number of lymph nodes involved: 3 Number of lymph nodes examined: 12Distant Metastasis (pM): Not applicable/Not confirmed pathologically in this case ----Rick Heck M.D., Ph.D.(Electronic Signature) SPECIME N SUBMITTEDA: DUODENAL MARGIN B: PANCREATIC DUCT MARGIN C: BILE DUCT MARGIN D: PANCREATICODUODENECTOMY E: ADDITIONAL SMALL BOWEL F: PERIPORTAL LYMPH NODE G: PYLORUS AND DUODENAL SUTURE LINE CLINICAL DATADUODENAL OBSTRUCTION INTRAOPERATIVE CONSULT DIAGNOSISFSA1: Duodenal margin, negative for malignancy. (Dr. Parker)FSB1: Pancreatic duct margin, negative for malignancy. (Dr. Parker)FSC1: Bile duct margin, negative for malignancy. (Dr. Parker)Intraoperative diagnosis performed at [facility], [address] [place] [address] GROSS DESCRIPTIONA. Received fresh for frozen section diagnosis designated duodenal margin is a segment of bowel measuring 6.5 x 0.8 x 0.4 cm. A staple line ispresent which is removed. The specimen is totally submitted with the shavemargin down for frozen then for permanent in two cassettes. B. Received fresh for frozen section diagnosis designated pancreatic ductmargin is a segment of pancreatic parenchyma measuring 1 x 0.7 x 0.5 cm. Aduct is identified measuring 0.3 cm in diameter. The specimen is totallysubmitted for frozen then for permanent in one cassette. C. Received fresh for frozen section diagnosis is a segment of bile ductmeasuring 1.5 x 1.2 x 0.3 cm. A lumen is present measuring 0.6 cm indiameter. The specimen is totally submitted for frozen then for permanentin one cassette. /jaron 09/30/2017D. Received in formalin designated pancreaticoduodenectomy is an en blocresection of organs to a Whipple procedure consisting of a portion ofduodenum measuring 18.5 cm in length and ranging in circumference from 3.2to 7.2 cm, a portion of pancreas measuring 8.3 x 4.6 x 3.5 cm, a segment ofpancreatic duct measuring 7.5 cm in length and a segment of bile ductmeasuring 6.3 cm in length. Both ducts are patent. There is a singleone-tail stitch present designating the SMA margin and a two-tail stitchpresent designating the portal vein margin. The portal vein margin is inkedblue, the SMA margin is inked yellow, the pancreatic neck margin is inkedgreen, the proximal duodenal margin is inked red, the distal duodenalmargin is inked orange, and the peripancreatic soft tissue margin is inkedblack. Examination of the mucosal surface of the duodenum reveals atan-pink exophytic firm mass circumferential in nature measuring 4.5 x 3 x1.7 cm. The mass is involving both the bile duct and pancreatic duct at theampullas and is located 5 cm from the proximal duodenal margin and 9.6 cmfrom the distal duodenal margin. The mass goes through the bowel wall intothe pancreatic parenchyma and is located 3.7 cm from the bile duct margin,4.9 cm from the pancreatic duct and pancreatic neck margin, 2.5 cm from theportal vein margin, 2 cm from the SMA margin, less than 0.1 cm to theanterior free surface soft tissue margin, and less than 0.1 cm to theposterior free surface soft tissue margin. The bile duct wall is thickened,measuring 0.3 cm in thickness. The mucosal surface is sanchez-pink andgranular. The adjacent pancreatic parenchyma to the mass is fibrotic. Theremainder of the pancreatic parenchyma is sanchez-pink and lobulated. Thereremainder of the duodenal mucosa is sanchez-green with normal mucosal ridges.The wall of the duodenum averages 0.6 cm in thickness. The serosal aspectis white and puckered near the area of the mass which has been inked green.The remainder of the serosa is sanchez and smooth. Sectioning of the attachedsoft tissue reveals multiple sanchez-white lymph nodes measuring up to 1.9 cmin greatest dimension. A photograph is taken. Wood Panel Inspector sections aresubmitted as follows: D1 perpendicular proximal duodenal margin, [id number] distal duodenal margin, D3 pancreatic neck shave margin,D4-D6 portal vein margin, D7-D8 SMA perpendicular margin, D9-D10 mass inrelation to ampulla with ampulla totally submitted, D11 mass in relation tobile ducts, D12 mass in relation to pancreas, D13 mass in relation toserosa, D14 mass in relation to proximal uninvolved bowel, D15 mass inrelation to distal uninvolved bowel, D16 mass in relation to anterior freesurface soft tissue perpendicular margin, D17 mass in relation to posteriorfree surface soft tissue perpendicular margin, D18 mass in relation toadjacent uninvolved pancreatic parenchyma, D19 pancreatic ducts andthickened bile duct, D20 uninvolved pancreatic parenchyma, D21 2 cmduodenum from the proximal margin, D22 5 cm duodenum from the distalmargin, D23-D24 one lymph node serially sectioned totally submitted, D25one lymph node trisected totally submitted, D26 one bisected totallysubmitted, D27 one lymph node bisected totally submitted, D28 one lymphnode bisected totally submitted, D29 one lymph node bisected totallysubmitted, D30-D39 remainder peripancreatic soft tissue. BF/dss 10/01/2017 E. Received in formalin designated additional small bowel is anunoriented segment of small bowel measuring 5.3 cm in length by 6.3 cm incircumference. One margin is inked blue, the opposing margin is inkedorange. The mucosal surface is sanchez-pink and granular with normal mucosalridges. The wall of the bowel averages 0.6 cm in thickness. The serosalaspect is sanchez and smooth. There is minimally attached fibrofatty tissuewhich is grossly unremarkable. Wood Panel Inspector sections are submitted asfollows: E1 perpendicular margins, E2 2 cm from the orange margin. F. Received in formalin designated periportal lymph node is a single tanfirm lymph node measuring 1.7 x 1.1 x 1 cm. The specimen is sectionedrevealing a sanchez solid cut surface. The specimen is totally submitted in onecassette. G. Received in formalin designated pylorus and duodenal staple line is asegment of stomach measuring 3.1 cm in length and ranging in circumferencefrom 5.5 to 5.7 cm distal to proximal. The distal margin is inked orange.The proximal margin is inked blue. The mucosal suface is sanchez-pink withnormal rugal folds. No masses are identifeid. A pylorus is present. Thewall averages 0.8 cm in thickness. The serosal aspect is sanchez and smooth.Also received in the same container is a segment of mucosal covered tissuewhich is mostly comprised of a staple line measuring 4.7 x 0.8 x 0.7 cm.Sectioning does not reveal any masses. Wood Panel Inspector sections aresubmitted as follows: G1 perpendicular proximal margin, G2 perpendiculardistal margin, G3 pylorus, G4 shave margin mucosal covered tissue withstaple line. BF/glw 10/01/2017 Gross examination performed at [facility], [address] [address] [place] [address] of Report: 10/13/2017Date of Procedure: 09/30/2017Date of Receipt: 09/30/2017Submitted by: MICHAEL JOLLEY MDLocation: [id number] interpretation performed at [facility], [address] [facility] [address]. Normal [facility] Comment on above: Performed By: #### P T, PTT, AMYL, CMP, LIPA, PHOS ####[facility] [phone]#### TRANSF ####[place] [id number] [place], [place] [phone] Wound Culture/Stainon 2017 Wound Culture/Stain Smear Result - Many Gram positive cocci in pairs --> ABNORMAL ALERT Rare --> ABNORMAL ALERT Gram negative bacilli --> ABNORMAL ALERT Rare --> ABNORMAL ALERT Gram positive bacilli --> ABNORMAL ALERT Rare --> ABNORMAL ALERT BEADED --> ABNORMAL ALERT Gram positive bacilli --> ABNORMAL ALERTCulture Result - Moderate Escherichia coli --> ABNORMAL ALERT Many --> ABNORMAL ALERT Enterococcus faecalis --> ABNORMAL ALERT Cephalosporins, clindamycin, and TMP-SMX are not effective for the treatment of enterococcal infections. --> ABNORMAL ALERT Few skin floraORGANISM: Escherichia coliMETHOD: Minimum inhibitory concentration(Vitek)Antibiot ic Interp JOLENE StatusAmpicillin SUSCEPTIBLE 4 FGentamicin SUSCEPTIBLE <=1 FTrimeth sulfameth SUSCEPTIBLE <=20 FCiprofloxacin SUSCEPTIBLE <=0.25 FCefepime SUSCEPTIBLE <=1 FPiperacillin/Tazobac SUSCEPTIBLE <=4 FAmpicillin Sulbact SUSCEPTIBLE <=2 FCeftriaxone SUSCEPTIBLE <=1 FMeropenem SUSCEPTIBLE <=0.25 FErtapenem SUSCEPTIBLE <=0.5 FORGANISM: Enterococcus faecalisMETHOD: Minimum inhibitory concentration(Vitek)Antibiot ic Interp JOLENE StatusAmpicillin SUSCEPTIBLE <=2 FVancomycin SUSCEPTIBLE 1 F Critically abnormal [facility] Comment on above: Performed By: #### P T, PTT, AMYL, CMP, LIPA, PHOS ####[facility] [place] [phone]#### TRANSF ####[place] [id number] [place], [place] [phone] NURSING PROGon 09-25-2017 NURSING PROG HNO ID: [id number] thor: Zaira (RnLyric Vital, RNService: NeurosurgeryAuthor Type: Registered NurseType: Nursing Progress NoteFiled: 09/29/2017 4:23 PMNote Text:PACC Nurse Progress NoteHistory AND Physical:PACC Visit Date: 4-71-22Yxrgoczv HANDP Date: N/AED visit Date: N/AOutside HANDP Scanned Date: N/ALabs Within Last 6 Months:CBC: Date 09-24 low hgb, but improved from previousBMP/CMP: Date 09-24PT: Date 09-24PTT: Date 09-24TYPE AND SCREEN: Date 09-24Imaging Within Last 12 Months:N/ACardiac Testing:EKG in last 12 Months: Yes: Date: 08-22-17, Comment: N/ABMI Percentile (PEDS):N/ARisk Assessment:Cardiac Date: Dr Abreu pending, N/A and pendingAnesthesia Review:N/ANarrative:N/APre-o p Considerations:N/AChart Check:IN PROGRESS -2 stress test expected for cardiac optimization by Gerald Freeman, RNOur [facility] - [place] 2017 8:38 AMADDEND:Cardiac Optimization: Dr. Abreu, letter scanned in [facility] 09-29-17.Chart Check:Zackary Beverly 2017 3:05 PM [facility] 09-24-2017 ALLIED HEALTH HNO ID: [id number] thor: Jennifer Win CtService: (none)Author Type: (none)Type: Allied HealthFiled: 09/24/2017 10:49 AMNote Text: Radiology Service Progress NotePATIENT NAME: Rocio Boudreaux: [id number] OF SERVICE: September 24, 2017TIME: 10:48 AMPATIENT IDENTITY VERIFICATION COMPLETED USING TWO (2) METHODS: Patientconfirmed name verbally and ID band matches..PATIENT GENDER DATA: MalePATIENT RELEVANT IMPLANT DATA REVIEWED: Not ApplicableRADIOLOGY DEPARTMENT: CT; Exam(s) Completed: Pancreas and PelvisPERIPHERAL IV DATA: Site assessment: Clean,Dry and Intact, Sitedisposition DiscontinuedSIGNED BY: Jennifer Win CtOur Lady Of Mercy [facility] - [place] 2017 10:48 AM [facility] APTTon 09-24-2017 aPTT 24.9 s Normal 23.0-32.4 [facility] Comment on above: Result Comment: Unfr actionated Heparin Therapeutic Ranges:Standard Heparin Nomogram: 53 to 78 seconds (anti-Xa level of 0.3 to 0.7 U/ml)Low Dose/ACS Nomogram: 49 to 67 seconds (anti-Xa level of 0.2 to 0.5 U/ml)Stroke Treatment Nomogram: 49 to 67 seconds (anti-Xa level of 0.2 to 0.5 U/ml)Note: The APTT therapeutic range has been determined for the current lot of laboratory APTT reagent in use throughout the [facility]. Performed By: #### P T, PTT, AMYL, CMP, LIPA, PHOS ####[place] [phone]#### TRANSF ####[place] [phone] CA 19-9on 09-24-2017 CA 19-9 15 U/mL Normal <36 [facility] Comment on above: Result Comment: Test analyzed by the [email or web address][employer] DxI method. Performed By: #### P T, PTT, AMYL, CMP, LIPA, PHOS ####[place] [phone]#### TRANSF ####[place] [phone] CBC and Differentialon 09-24 Abs Baso <0.03 Normal <0.11 [facility] Comment on above: Performed By: #### P T, PTT, AMYL, CMP, LIPA, PHOS ####[place] [phone]#### TRANSF ####[place] [phone] Abs [place] 0.57 k/uL Normal <0.87 [facility] Comment on above: Performed By: #### P T, PTT, AMYL, CMP, LIPA, PHOS ####[place] [phone]#### TRANSF ####[place] [address] [place] [phone] Abs Neut 3.92 k/uL Normal 1.45-7.50 [facility] Comment on above: Performed By: #### P T, PTT, AMYL, CMP, LIPA, PHOS ####[place] [address]#### TRANSF ####[place] [address] [place] [phone] Basophils/100 WBC Auto (Bld) 0.3 % Normal [facility] Comment on above: Performed By: #### P T, PTT, AMYL, CMP, LIPA, PHOS ####[place] [address]#### TRANSF ####[place] [phone] DTYPE Auto Diff Normal [facility] Comment on above: Performed By: #### P T, PTT, AMYL, CMP, LIPA, PHOS ####[place] [address]#### TRANSF ####[place] [phone] Eosinophils 0.34 10*3/uL Normal <0.46 [facility] Comment on above: Performed By: #### P T, PTT, AMYL, CMP, LIPA, PHOS ####[place] [address]#### TRANSF ####[place] [phone] Eosinophils/100 leukocytes 4.5 % Normal [facility] Comment on above: Performed By: #### P T, PTT, AMYL, CMP, LIPA, PHOS ####[place] [address]#### TRANSF ####[place] [address] Erythrocyte distribution width Auto Ratio (RBC) 16.2 % High 11.5-15.0 [facility] Comment on above: Performed By: #### P T, PTT, AMYL, CMP, LIPA, PHOS ####[place] [address]#### TRANSF ####[place] [phone] Erythrocytes (RBC) 10*6/uL Normal <0.01 [facility] Comment on above: Performed By: #### P T, PTT, AMYL, CMP, LIPA, PHOS ####[place] [address]#### TRANSF ####[place] [address] Erythrocytes (RBC) 3.62 10*6/uL Low 4.20-6.00 [facility] Comment on above: Performed By: #### P T, PTT, AMYL, CMP, LIPA, PHOS ####[place] [address]#### TRANSF ####[place] [address] Erythrocytes (RBC) 0.0 /100 WBC Normal 0 [facility] Comment on above: Performed By: #### P T, PTT, AMYL, CMP, LIPA, PHOS ####[place] [address]#### TRANSF ####[place] [address] Hematocrit (HCT) 29.1 % Low 39.0-51.0 [facility] Comment on above: Performed By: #### P T, PTT, AMYL, CMP, LIPA, PHOS ####[place] [phone]#### TRANSF ####[phone] Hemoglobin mass conc (Bld) 8.6 g/dL Low 13.0-17.0 [facility] Comment on above: Performed By: #### P T, PTT, AMYL, CMP, LIPA, PHOS ####[place] [address]#### TRANSF ####[place] [phone] Lymphocytes 2.62 10*3/uL Normal 1.00-4.00 [facility] Comment on above: Performed By: #### P T, PTT, AMYL, CMP, LIPA, PHOS ####[place] [address]#### TRANSF ####[place] [phone] Lymphocytes/100 leukocytes 35.0 % Normal [facility] Comment on above: Performed By: #### P T, PTT, AMYL, CMP, LIPA, PHOS ####[address]#### TRANSF ####[place] [phone] MCH 23.8 pG Low 26.0-34.0 [facility] Comment on above: Performed By: #### P T, PTT, AMYL, CMP, LIPA, PHOS ####[address]#### TRANSF ####[place] [phone] MCHC mass conc (RBC) 29.6 g/dL Low 30.5-36.0 [facility] Comment on above: Performed By: #### P T, PTT, AMYL, CMP, LIPA, PHOS ####[place] [address]#### TRANSF ####[place] [phone] MCV 80.4 fL Normal 80.0-100.0 [facility] Comment on above: Performed By: #### P T, PTT, AMYL, CMP, LIPA, PHOS ####[place] [address]#### TRANSF ####[place] [phone] Monocytes/100 leukocytes 7.6 % Normal [facility] Comment on above: Performed By: #### P T, PTT, AMYL, CMP, LIPA, PHOS ####[place] [address]#### TRANSF ####[place] [phone] Neutrophils/100 WBC Auto (Bld) 52.6 % Normal [facility] Comment on above: Performed By: #### P T, PTT, AMYL, CMP, LIPA, PHOS ####[place] [address]#### TRANSF ####[phone] Platelet mean volume (PMV) 10.9 fL Normal 9.0-12.7 [facility] Comment on above: Performed By: #### P T, PTT, AMYL, CMP, LIPA, PHOS ####[place] [address]#### TRANSF ####[place] [phone] Platelets 354 10*3/uL Normal 150-400 [facility] Comment on above: Performed By: #### P T, PTT, AMYL, CMP, LIPA, PHOS ####[place] [phone]#### TRANSF ####[address] [phone] WBC (Leukocytes) 7.49 10*3/uL Normal 3.70-11.00 [facility] Comment on above: Performed By: #### P T, PTT, AMYL, CMP, LIPA, PHOS ####[place] [phone]#### TRANSF ####[place] [phone] CEAon 09-24-2017 CEA 0.7 ng/mL Normal 0.0-2.9 [facility] Comment on above: Result Comment: Test analyzed by the [employer] DxI method. Performed By: #### P T, PTT, AMYL, CMP, LIPA, PHOS ####[place] [phone]#### TRANSF ####[address] [phone] CT PANCREAS/PELVIS W IVCONon 09-24-2017 CT PANCREAS/PELVIS W IVCON * * *Final Report* * *DATE OF EXAM: Sep 24 2017 11:01AM [facility] 0553 - CT PANCREAS/PELVIS W IVCON / REASON: DUODENAL OBSTRUCTION * * * * Physician Interpretation * * * * MULTIPHASE CT ABDOMEN AND PELVIS WITH CONTRASTHISTORY: Duodenal obstructionCOMPARISON: 08/24/2017TECHNIQUE: CT of the abdomen and pelvis was performed using pancreatic protocol after the administration of intravenous contrast without complication.CONTRAST: 150 mL of Omnipaque 300 via IVDose-Length Product (DLP): 985 mGy*cm.CT Dose Reduction Employed: Automated exposure control (AEC)RESULT:Lung bases: Linear right lower lung atelectasis.Liver: Stable subcapsular cyst at the dome measuring 1.3 cm (5:28). Additional too small to characterize lateral segment hypodensities (5:38 for example).Gallbladder/biliary tree/pancreas: Post percutaneous transhepatic biliary drainage catheter placement. Improved central intrahepatic and extrahepatic biliary dilation. Post cholecystectomy with interval decrease in size of a hematoma within the gallbladder fossa currently spanning 4.9 x 3.3 cm (5:51, previously 7.3 x 5.3 cm). Stable mild dilation of the main pancreatic duct measuring up to 6 mm within the head with normal insertion. Redemonstration of infiltrative likely circumferential mass centered within the second portion of the duodenum, exact measurements are difficult given the infiltrative nature of the tumor.Bowel: No obstruction upstream to the mass within the duodenum. Moderate colonic stool burden.Adrenal glands: No mass.Spleen: No mass. No splenomegaly.Kidneys/collect ing systems: No obstructive uropathy.Mesentery/retroperi toneum: Stable mildly enlarged mesenteric root lymph nodes measuring up to 9 mm and stranding of the root of the mesentery. Stable mildly enlarged lymph nodes adjacent to the second portion of the duodenum/aditya hepatis measuring up to 1.7 cm (5:57, 5:59 and 5:78 for example). No ascites.Vasculature: Patent right and left portal veins, main portal vein, portal confluence, SMV and splenic vein. Patent hepatic veins. Patent SMA and celiac trunk.Bones/soft tissues: Stable degenerative changes.IMPRESSION:Infiltrat tonny mass within the second portion of the duodenum.No significant biliary dilation following placement of the externalized stent. No bowel obstruction secondary to the mass.Mild periportal and periduodenal adenopathy.Resolving gallbladder fossa hematoma.Findings favor mesenteric panniculitis.Transcriptionis t: PSCB Transcribe Date/Time: Sep 25 2017 8:52ADictated by : ATIYA JUAREZ MDThis examination was interpreted and the report reviewed and electronically signed by: ATIYA JUAREZ MD on Sep 25 2017 9:02AM [id number] Normal [facility] Comp Metabolic Panelon 09-24 Alanine aminotransferase (ALT) 38 U/L Normal 5-50 [facility] Comment on above: Performed By: #### P T, PTT, AMYL, CMP, LIPA, PHOS ####[facility] [place], [place] [phone]#### TRANSF ####[place] [phone] Albumin 3.7 g/dL Normal 3.5-5.0 [facility] Comment on above: Performed By: #### P T, PTT, AMYL, CMP, LIPA, PHOS ####[place] [address]#### TRANSF ####[place] [phone] Alkaline phosphatase (ALP) 160 U/L High 40-150 [facility] Comment on above: Performed By: #### P T, PTT, AMYL, CMP, LIPA, PHOS ####[place] [address]#### TRANSF ####[place] [phone] Anion gap 12 mmol/L Normal 9-18 [facility] Comment on above: Performed By: #### P T, PTT, AMYL, CMP, LIPA, PHOS ####[place] [address]#### TRANSF ####[place] [phone] Aspartate aminotransferase (AST) 37 U/L Normal 7-40 [facility] Comment on above: Performed By: #### P T, PTT, AMYL, CMP, LIPA, PHOS ####[place] [address]#### TRANSF ####[place] [phone] Bilirubin (total) 0.3 mg/dL Normal 0.0-1.5 [facility] Comment on above: Performed By: #### P T, PTT, AMYL, CMP, LIPA, PHOS ####[phone]#### TRANSF ####[place] [phone] Calcium 9.7 mg/dL Normal 8.5-10.5 [facility] Comment on above: Performed By: #### P T, PTT, AMYL, CMP, LIPA, PHOS ####[place] [address]#### TRANSF ####[place] [phone] Chloride 98 mmol/L Normal 98-110 [facility] Comment on above: Performed By: #### P T, PTT, AMYL, CMP, LIPA, PHOS ####[place] [address]#### TRANSF ####[place] [phone] CO2 28 mmol/L Normal 23-32 [facility] Comment on above: Performed By: #### P T, PTT, AMYL, CMP, LIPA, PHOS ####[place] [address]#### TRANSF ####[place] [phone] Creatinine 0.68 mg/dL Low 0.70-1.40 [facility] Comment on above: Performed By: #### P T, PTT, AMYL, CMP, LIPA, PHOS ####[place] [address]#### TRANSF ####[place] [address] eGFR (non-black) mL/min/{1.73_m2} Normal >60 [facility] Comment on above: Performed By: #### P T, PTT, AMYL, CMP, LIPA, PHOS ####[place] [phone]#### TRANSF ####[place] [phone] Glucose mass conc 110 mg/dL High 65-100 [facility] Comment on above: Performed By: #### P T, PTT, AMYL, CMP, LIPA, PHOS ####[place] [address]#### TRANSF ####[place] [phone] Potassium molar conc 4.7 mmol/L Normal 3.5-5.0 [facility] Comment on above: Performed By: #### P T, PTT, AMYL, CMP, LIPA, PHOS ####[place] [address]#### TRANSF ####[place] [phone] Protein 7.8 g/dL Normal 6.0-8.4 [facility] Comment on above: Performed By: #### P T, PTT, AMYL, CMP, LIPA, PHOS ####[place] [address]#### TRANSF ####[place] [phone] Sodium 138 mmol/L Normal 135-146 [facility] Comment on above: Performed By: #### P T, PTT, AMYL, CMP, LIPA, PHOS ####[place] [address]#### TRANSF ####[place] [phone] Urea nitrogen 13 mg/dL Normal 10-25 [facility] Comment on above: Performed By: #### P T, PTT, AMYL, CMP, LIPA, PHOS ####[place] [phone]#### TRANSF ####[facility] [address] [place], [place] [phone] NURSING PROGon 09-24-2017 NURSING PROG HNO ID: [id number] thor: Nayeli Humphries (Rn) MOUSTAPHA Pelletierervice: RadiologyAuthor Type: Registered NurseType: Nursing Progress NoteFiled: 09/24/2017 10:26 AMNote Text: Radiology Service Progress NotePATIENT NAME: Rocio Boudreaux: [id number] OF SERVICE: September 24, 2017TIME: 10:25 AMPATIENT WEIGHT: 184 LBSPATIENT IDENTITY VERIFICATION COMPLETED USING TWO (2) METHODS: Patientconfirmed name verbally and Date of .PATIENT GENDER DATA: MaleCONTRAST INDUCED NEPHROPATHY RISK FACTORS: Patient age > 60 years,Diabetic: Yes. Current medication(s): Metformin. Patient currently hasinsulin pump?: No. and Home going recommendation given YesCREATININE:CreatinineDate Value Ref Range Iyrknb0209/01/2017 0.54 (L) 0.70 - 1.40 mg/dL Final08/31/2017 0.56 (L) 0.70 - 1.40 mg/dL Final08/30/2017 0.59 (L) 0.70 - 1.40 mg/dL Final eGFR-All Other RacesDate Value Ref Range Makyjr1609/01/2017 >60 >60 . Final eGFR- AmericanDate Value Ref Range Kbdgir4109/01/2017 >60 >60 Final P.O.C.T. RESULTS: N/A September 24, 2017TREATMENT: No Hydration needed.ALLERGIES: Reviewed and unchangedCONTRAST ALLERGY: NO.IV SITE: Ambulatory: A peripheral IV was started in the Right forearmwith a diffusic cath: 20 gauge. A Saline lock was inserted per protocol.IV SITE APPEARANCE: Clean,Dry and IntactSIGNED BY: Nayeli Pelletier RNOur Lady Of Mercy Hospital - [place] 2017 10:25 AM Normal [facility] Protimeon 09-24-2017 INR Coag RelTime (Bld) 1.1 {INR} Normal 0.9-1.3 [facility] Comment on above: Result Comment: Tayler min K Antagonist (VKA) Therapeutic Range: INR 2 to 3 (Target INR of 2.5)Note: For patients treated with VKA drugs, such as warfarin, the [employer] [employer] 2012 Guideline recommends a therapeutic INR range of 2 to 3 (target INR of 2.5). This recommendation includes high-risk patients with antiphospholipid syndrome with previous arterial or venous thromboembolism, current-generation mechanical or bioprosthetic aortic heart valve replacement.Note: Patients with mechanical aortic valve replacement and additional risk factors for thromboembolic events (atrial fibrillation, previous thromboembolism, LV dysfunction, hypercoagulable conditions) or an older generation mechanical AVR (i.e., ball in-Cage) or any mechanical MVR should have a INR therapeutic range of 2.5 to 3.5 (target INR of 3).Keegan CHOW, et al. Chest 2012, 141:7S-47SFelice CENTENO, et al. [facility] 2017, 70: 252-289 Performed By: #### P T, PTT, AMYL, CMP, LIPA, PHOS ####[place] [phone]#### TRANSF ####[phone] PT Sec 11.1 sec Normal 9.7-13.0 [facility] Comment on above: Performed By: #### P T, PTT, AMYL, CMP, LIPA, PHOS ####[place] [phone]#### TRANSF ####[place] [phone] Type and SCR (30D)on 018 ABO/RH(D) Positive Normal [facility] Comment on above: Performed By: #### P T, PTT, AMYL, CMP, LIPA, PHOS ####[place] [phone]#### TRANSF ####[place] [phone] Antibody Screen Negative Normal [facility] Comment on above: Performed By: #### P T, PTT, AMYL, CMP, LIPA, PHOS ####[facility] [place], [place] [phone]#### TRANSF ####[facility] [address] [place], [place] [phone] HOSPon 09-16-2017 HOSP Patient:Jason Jackson RN: Height:5' 8 (1.727 m)Weight:176 lb (79.833 kg)Outpatient Medications as of 09/30/17:apixaban (ELIQUIS) 5 mg tab(s)metoprolol tartrate, short acting, (LOPRESSOR) 50 mg tabletacetaminophen (TYLENOL) 325 mg tabletaspirin, enteric coated (ECOTRIN LOW STRENGTH) 81 mg EC tabletatorvastatin (LIPITOR) 40 mg tabletmetFORMIN (GLUCOPHAGE) 1,000 mg tabletOmeprazole Magnesium 20 mg cpDRnitroglycerin sublingual (NITROSTAT) 0.4 mg SL tabletsAXagliptin (ONGLYZA) 5 mg tabAdmission/Clinic Administered Medications as of 09/30/17:0.9% NaCl 2-10 mLheparin 5,000 Units injectioncefTRIAXone 2 g in D5W 100 mL MB+ (ROCEPHIN)metroNIDAZOLE 500 mg PREMIX piggyback (FLAGYL)Problem List:Duodenal obstruction [K31.5]Severe protein-calorie malnutrition (HCC) [E43]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]Allergies:No Known AllergiesDate Verified:09/30/17Lab ValuesLab Value Units Date High LowPOTA* 4.7 mmol/L 09/24/2017 5.0 3.5HEMA* 29.1 % 09/24/2017 51.0 39.0Progress Notes ([facility] [address]):Michael Jolley MD 09/27/2017 12:29 PM SignedSURGERY PREOPERATIVE VISIT NOTEName: Rocio JacksonMedical Record: [id number] No.: [id number] Frisch is a 62 year old male seen in surgery clinic today for their finalpreoperative assessment.WEIGHTCurrent Wt/BMI: There is no height or weight on file to calculate BMI.Planned Procedure:Diagnostic laparoscopy, pancreaticoduodenectomy, possible bypassPAST MEDICAL HISTORY:PAST MEDICAL HISTORYDiagnosis Date- Bleeding ulcer 11/15/2016 required 5 blood transfusions- Diabetes mellitus (HCC) 2016- Glaucoma- Hypertension- Myocardial infarction (HCC) 05/15/2011PAST SURGICAL HISTORY:PAST SURGICAL HISTORYProcedure Laterality Date- ANGIOPLASTY HX 05/15/2011 2 stents s/p MD;[facility]- CHOLECYSTECTOMY 08/11/2017 [facility]- PICC LINE INSERT/CONSULT 08/16/2017SOCIAL HISTORY:Social HistorySubstance Use Topics- Smoking status: Former Smoker Types: Cigarettes Quit date: 2010- Smokeless tobacco: Never Used- Alcohol use 1.5 oz/week 1 Cans of Beer (12oz) per week Comment: occasional beerALLERGIES:ALLERGIESNo Known AllergiesMEDICATIONS:Prior to Admission Medications:apixaban (ELIQUIS) 5 mg tab(s) Take 1 tablet by mouth twice daily.metoprolol tartrate, short acting, (LOPRESSOR) 50 mg tablet Take 1 tablet bymouth every 12 hours.acetaminophen (TYLENOL) 325 mg tablet Take 2 tablets by mouth every 6 hours asneeded.aspirin, enteric coated (ECOTRIN LOW STRENGTH) 81 mg EC tablet Take 162 mg bymouth once daily.atorvastatin (LIPITOR) 40 mg tablet Take 40 mg by mouth daily at bedtime.metFORMIN (GLUCOPHAGE) 1,000 mg tablet Take 1,000 mg by mouth twice daily withmeals.Omeprazole Magnesium 20 mg cpDR Take 20 mg by mouth twice daily.nitroglycerin sublingual (NITROSTAT) 0.4 mg SL tablet Dissolve 0.4 mg under thetongue every 5 minutes as needed.sAXagliptin (ONGLYZA) 5 mg tab Take by mouth once daily.No current hospital medications on file.VISIT NOTEThis patient was seen in clinic today to obtain informed consent, to discuss thedetails of their upcoming operation including the appropriate expectations forperioperative and postoperative care. In addition, preoperative andpostoperative relevant prescriptions were provided and explained during thisclinic visit.The consent discussion included the risks, benefits and anticipated outcomes ofthe procedure, the risks and benefits of the alternatives to the procedure, andthe roles and tasks of the personnel to be involved. I have discussed regardinga diagnostic laparoscopy, pancreaticoduodenectomy, including possible palliativebypass of bile duct and stomach if we're unable to perform the Whipple. Theconsent discussion included the risks, benefits and anticipated outcomes of theprocedure, the risks and benefits of the alternatives to the procedure, and theroles and tasks of the personnel to be involved. I discussed with the patientregarding risks, benefits and alternatives to surgery including the risk ofinfection, bleeding, delayed gastric emptying, enterotomies, post operative bilepancreas or gastric leak, post operative anastamotic break down, need for moreoperations, scar formation and post operative pain. Patient also understandpossibility of a prolonged post operative course, prolonged ICU stay and needfor mechanical ventilation. Patient understands risk of medical complicationsincluding pneumonia, MD, UTI and . Patient expressed understanding andconsented to the surgery.The patient had an opportunity to ask additional questions that were answered.The patient expressed that they understood.A consent form was signed today.Prescriptions were explained and provided to the patient.Magalys Alvarez RNPrevious VersionProgress Notes ([facility]):Magalys Alvarez RN 09/23/2017 5:01 PM SignedPatient is scheduled for Whipple on 09/30/[address] Jolley.09/16/2017 Cardiac Clearance request faxed to patient rn observation for riskstratification and recommendations for Eliquis and AsaCall to office today to check status of request. Nurse unavailable. Awaitingreturn call from nurse.Dr. Irving Rock [address] [phone] Magalys Alvarez RN 09/24/2017 1:48 PM SignedReceived return call from [facility].Patient is pending a stress test on 09/28/2017. Dr. Abreu's office will sendcardiac stratification letter after testing completed.Per Dr. Jolley, patient is to hold Eliquis and Asa (last dose 09/23/2017). Normal [facility] CASE MANAGEMon 09-01-2017 CASE MANAGEM HNO ID: [id number] thor: Alexandrea (Rn) Thom, RNService: Care ManagementAuthor Type: Registered NurseType: Care Mgt Progress NoteFiled: 09/01/2017 11:42 AMNote Text:CARE MANAGEMENT DISCHARGE NOTESERVICE DATE: 09/01/2017SERVICE TIME: 11:02 AM LOS: 19 daysAdmission Date: 08/13/2017DISCHARGE ARRANGEMENT (list agency and phone number)snf facilityProvider: [facility] CSQPTWGOF ASSESSMENT:Caregiver is ready, willing and able to meet the patient's needs asrecommended by the inter-professional team? YesPatient's transition needs and plan for meeting these needs: SNFDoes the patient have an acute stroke diagnosis, or has the patient had astroke during this admission? NoHANDOFF COMMUNICATION:SNFTRANSPORTAT ION ARRANGEMENTS:Car Sisters will drive pt to the SNFADDITIONAL CONTACT RESOURCES: nonePlan is for dc today to [facility] in [place].The pt and his sisters have verbalized agreement with this plan.SIGNATURE: Alexandrea Tomas RN PATIENT NAME: Rocio VizcarraTE: September 01, 2017 : 11:02 AM PAGER/CONTACT #: [phone] Normal [facility] CBC and Differentialon 09-01 Abs Baso <0.03 Normal <0.11 [facility] Comment on above: Performed By: #### P T, PTT, AMYL, CMP, LIPA, PHOS ####[phone]#### TRANSF ####[place] [phone] Abs [place] 0.44 k/uL Normal <0.87 [facility] Comment on above: Performed By: #### P T, PTT, AMYL, CMP, LIPA, PHOS ####[place] [phone]#### TRANSF ####[place] [phone] Abs Neut 2.43 k/uL Normal 1.45-7.50 [facility] Comment on above: Performed By: #### P T, PTT, AMYL, CMP, LIPA, PHOS ####[place] [address]#### TRANSF ####[address] Av[address] [place] [phone] Basophils/100 WBC Auto (Bld) 0.4 % Normal [facility] Comment on above: Performed By: #### P T, PTT, AMYL, CMP, LIPA, PHOS ####[place] [address]#### TRANSF ####[place] [phone] DTYPE Auto Diff Normal [facility] Comment on above: Performed By: #### P T, PTT, AMYL, CMP, LIPA, PHOS ####[place] [address]#### TRANSF ####[place] [address] Eosinophils 0.26 10*3/uL Normal <0.46 [facility] Comment on above: Performed By: #### P T, PTT, AMYL, CMP, LIPA, PHOS ####[place] [address]#### TRANSF ####[place] [address] Eosinophils/100 leukocytes 5.3 % Normal [facility] Comment on above: Performed By: #### P T, PTT, AMYL, CMP, LIPA, PHOS ####[place] [address]#### TRANSF ####[place] [address] Erythrocyte distribution width Auto Ratio (RBC) 15.3 % High 11.5-15.0 [facility] Comment on above: Performed By: #### P T, PTT, AMYL, CMP, LIPA, PHOS ####[place] [address]#### TRANSF ####[place] [phone] Erythrocytes (RBC) 2.93 10*6/uL Low 4.20-6.00 [facility] Comment on above: Performed By: #### P T, PTT, AMYL, CMP, LIPA, PHOS ####[place] [address]#### TRANSF ####[place] [phone] Hematocrit (HCT) 25.0 % Low 39.0-51.0 [facility] Comment on above: Performed By: #### P T, PTT, AMYL, CMP, LIPA, PHOS ####[place] [address]#### TRANSF ####[place] [phone] Hemoglobin mass conc (Bld) 7.9 g/dL Low 13.0-17.0 [facility] Comment on above: Performed By: #### P T, PTT, AMYL, CMP, LIPA, PHOS ####[place] [address]#### TRANSF ####[place] [phone] Lymphocytes 1.72 10*3/uL Normal 1.00-4.00 [facility] Comment on above: Performed By: #### P T, PTT, AMYL, CMP, LIPA, PHOS ####[place] [address]#### TRANSF ####[place] [address] Lymphocytes/100 leukocytes 35.3 % Normal [facility] Comment on above: Performed By: #### P T, PTT, AMYL, CMP, LIPA, PHOS ####[place] [address]#### TRANSF ####[phone] MCH 27.0 pG Normal 26.0-34.0 [facility] Comment on above: Performed By: #### P T, PTT, AMYL, CMP, LIPA, PHOS ####[address]#### TRANSF ####[place] [phone] MCHC mass conc (RBC) 31.6 g/dL Normal 30.5-36.0 [facility] Comment on above: Performed By: #### P T, PTT, AMYL, CMP, LIPA, PHOS ####[place] [address]#### TRANSF ####[phone] MCV 85.3 fL Normal 80.0-100.0 [facility] Comment on above: Performed By: #### P T, PTT, AMYL, CMP, LIPA, PHOS ####[place] [address]#### TRANSF ####[phone] Monocytes/100 leukocytes 9.0 % Normal [facility] Comment on above: Performed By: #### P T, PTT, AMYL, CMP, LIPA, PHOS ####[place] [address]#### TRANSF ####[phone] Neutrophils/100 WBC Auto (Bld) 50.0 % Normal [facility] Comment on above: Performed By: #### P T, PTT, AMYL, CMP, LIPA, PHOS ####[place] [address]#### TRANSF ####[place] [phone] Platelet mean volume (PMV) 9.7 fL Normal 9.0-12.7 [facility] Comment on above: Performed By: #### P T, PTT, AMYL, CMP, LIPA, PHOS ####[place] [address]#### TRANSF ####[place] [phone] Platelets 495 10*3/uL High 150-400 [facility] Comment on above: Performed By: #### P T, PTT, AMYL, CMP, LIPA, PHOS ####[address]#### TRANSF ####[place] [phone] WBC (Leukocytes) 4.87 10*3/uL Normal 3.70-11.00 [facility] Comment on above: Performed By: #### P T, PTT, AMYL, CMP, LIPA, PHOS ####[place] [address]#### TRANSF ####[place] [phone] CNDSon 09-01-2017 CNDS HNO ID: [id number] thor: Allegra Garcia) MiglionicoService: ColorectalAuthor Type: Physician AssistantType: Discharge SummariesFiled: 09/02/2017 11:51 AMNote Text:DISCHARGE SUMMARYPATIENT NAME: Rocio Jackson ADMISSION DATE: 08/13/2017MRN: [id number] DISCHARGE DATE: 09/01/2017ATTENDING PHYSICIAN: Michael Cedillo) Moiz FOR HOSPITALIZATION: Partial duodenal obstruction due to cancerOPERATIONS DURING HOSPITALIZATION: NonePROCEDURES DURING HOSPITALIZATION:IR drainage of a bile collectionInsertion of a peripheral central catheter for IV antibioticsEndoscopic Retrograde Cholangiopancreatography with duodenal dilationPercutaneous transhepatic cholangiography and placement of aninternal/external biliary drain. This procedure was repeated on 08/27 andthe drain was up-sizedHOSPITAL COURSE: was admitted from an OSH with obstructive symptoms afterundergoing a laparoscopic cholecystectomy, where an ERCP was performedshowing a partial duodenal obstruction due to probable cancer. An NGT wasplaced for decompression and he was started on IV fluids. A CT performedshowed a biloma, and he underwent IR drainage of this collection on 08/15.He was seen by gastroenterology who performed an ERCP on 08/17. During thisprocedure he was found to have a malignant duodenal mass with severestenosis. The area of stenosis was dilated but could not be stented.During this time he had also developed new atrial fibrillation and wasseen by cardiology who adjusted his medications throughout his admission.Due to a persistent biliary leak he underwent a PTHC where a biliary drainwas placed on 08/19. With the placement of this drain the patient began tofeel better and he was started on a diet. His PTHC drain output increasedand a drain cholangiogram was performed on 08/27 and his biliary drain wasup-sized.His nutrition was optimized, and he was seen by PT/OT who recommended askilled nursing facility on discharge. Prior to discharge he was seen bycardiology again who recommended he be placed on Eliquis.On September 01, 2017 his vital signs were normal, and he had satisfactorytoleration of a PO diet. He was discharged home to follow up for furtherdiscussion of a possible surgery, once his nutritional status improves.LABS AND PROCEDURES PENDING AT DISCHARGE: No pending results.CONSULTING TEAMS DURING HOSPITALIZATION: Cardiology, GastroenterologyPATIENT CONDITION AT DISCHARGE: StableDISCHARGE DISPOSITION: Fdc FacilityINFORMATION PROVIDED TO PATIENT:Instructions for My Care at Home or Healthcare FacilityThese instructions explain what you or your care professionals need to do tocontinue your care at home or at another healthcare facility? Please go over these instructions with your nurse and care professionals.? If you are not sure about something, please ask.Symptoms or health problems to watch for after I leave the hospital:Signs of infection (fever, swelling, increase in redness or pus fromincision)Symptoms of dehydration (weakness, fatigue, dizziness when standing orwalking, high heart rate, low urine output or very dark urine).Severe abdominal painPersistent nausea/vomitingIf you experience chest pain or shortness of breath, go to the nearestemergency department.Pain management:Pain is under control with medications. Take your pain medication asprescribed. (Please see medication list at the end of this document)You may become constipated while taking narcotic pain medications. If youbecome constipated, you make take over the counter stool softeners orlaxatives, such as Dulcolax or milk of magnesia.Drain Care:Flush pigtail drain twice daily with 5 ml of normal salineLeave Biliary drain capped, this drain should also be flushed twice dailywith 10 ml of normal salineIt is okay to shower.-You may wash the incisions with warm, soapy water.-Do not scrub the incisions.DIRECTIONS TO FACILITY: THE PATIENT WAS NEWLY STARTED ON ELIQUIS. PLEASECHECK A CBC DAILY FOR THE NEXT 3 DAYS AND MONITOR FOR SIGNS OF BLEEDINGDiet (what I can eat):Continue on a high calorie, protein diet. You can supplement withnutrition shakes such as Boost or Ensure if neededActivity and exercise: (When I can drive, return to work)No heavy pushing, pulling, or lifting (nothing greater than 10 lbs) for4-[address] while on narcoticsFollow-up appointment reminders:Future AppointmentsDate Time Provider Department Center09/15/2017 1:45 PM Michael Cedillo) [place] [facility] [address] FvWestValleyIT IS EXTREMELY IMPORTANT FOR YOU TO FOLLOW UP WITH YOUR CARDIOLOGISTWITHIN 2 WEEKSDISCHARGE MEDICATION:Discharge Medication List as of 09/01/2017 1:57 PMSTART taking these medicationsapixaban (ELIQUIS) 5 mg tab(s)Take 1 tablet by mouth twice daily.Med UpdateoxyCODONE IR (ROXICODONE) 5 mg immediate release tabletTake 1 tablet by mouth every 8 hours as needed for Pain for up to 5 days.Print RX, Disp-15 tablet, R-0Dx: 1. Duodenal obstruction 2. Acute painmetoprolol tartrate, short acting, (LOPRESSOR) 50 mg tabletTake 1 tablet by mouth every 12 hours.Print RX, Disp-60 tablet, R-0, Long-termacetaminophen (TYLENOL) 325 mg tabletTake 2 tablets by mouth every 6 hours as needed.OTCCONTINUE these medications which have NOT CHANGEDaspirin, enteric coated (ECOTRIN LOW STRENGTH) 81 mg EC tabletTake 162 mg by mouth once daily.Historical Med, Long-termatorvastatin (LIPITOR) 40 mg tabletTake 40 mg by mouth daily at bedtime.Historical Med, Long-termmetFORMIN (GLUCOPHAGE) 1,000 mg tabletTake 1,000 mg by mouth twice daily with meals.Historical Med, Long-termOmeprazole Magnesium 20 mg cpDRTake 20 mg by mouth twice daily.Historical Med, Long-termnitroglycerin sublingual (NITROSTAT) 0.4 mg SL tabletDissolve 0.4 mg under the tongue every 5 minutes as needed.Historical Med, Long-termsAXagliptin (ONGLYZA) 5 mg tabTake by mouth once daily.Historical Med, Long-termSTOP taking these medicationslisinopril 2.5 mg tabletComments:Reason for Stopping:carvedilol (COREG) 12.5 mg tabletComments:Reason for Stopping:TIME OF CARE (Use first blank if not applicable):SIGNATURE: Allegra Trevizo PA-C PATIENT NAME: Rocio JacksonDATE: September 02, 2017 : 11:13 AM PAGER/CONTACT #: [phone] [facility] CONSULT PROGon 09-01-2017 CONSULT PROG HNO ID: [id number] thor: Jessee Lottervice: Cardiovascular DiseaseAuthor Type: PhysicianType: Consult Progress NoteFiled: 09/01/2017 10:07 AMNote Text:Cardiology Progress NotePatient Name: Rocio Jackson 's Date: September 01, 2017 Attending: Michael Cedillo) AugustinConsulting Physician: Jessee Mayorga MDAssessment/Plan: 1. paroxysmal afib In sinusPt going to rehab facility planned surgery in 3 to 4 weeksDiscussed with EP ,no anti arrhythmic drugs ,recommended AC to reducethromboembolic risk.Risk benefits discussed with pt decided on eliquis 5 mg bidWatch for for bleeding issuesadvise f/u with primary rn observation as out ptAll questions answered.Subjective:Doing well no cp ,sobMonitor sinusVSSObjective: 08/31/18217BP: 110/65 113/63 104/61 103/67Pulse: 86 84 72 71Resp: 16 16 17Temp: 37.1 ?C (98.7 ?F) 36.9 ?C (98.5 ?F) 36.3 ?C (97.4 ?F)TempSrc: Oral Oral AxillarySpO2: 98% 96% 95%Weight:Height:BP 103/67 Pulse 71 Temp (Src) 97.4 (Axillary) Resp 17 Ht 5' 8 (1.73m) Wt 192 lb (87.1kg) SpO2 95% BMI 29.20 kg/(m2).PAST MEDICAL HISTORYDiagnosis Date- Bleeding ulcer 11/15/2016 required 5 blood transfusions- Diabetes mellitus (HCC) 2017- Glaucoma- Hypertension- Myocardial infarction (HCC) 05/15/2011PAST SURGICAL HISTORYProcedure Laterality Date- ANGIOPLASTY HX 05/15/2011 2 stents s/p MD;[facility]- CHOLECYSTECTOMY 08/11/2017 [facility]- PICC LINE INSERT/CONSULT 08/16/2017Prior to Admission Medications:No current facility-administered medications on file prior to encounter.No current outpatient prescriptions on file prior to encounter.ALLERGIESNo Known AllergiesIntake/Output Summary (Last 24 hours) at 09/01/17 1000Last data filed at 09/01/17 0827 Gross per 24 hourIntake 0 mlOutput 651 mlNet -651 mlPhysical Exam:General appearance: well appearing, alert, in no acute distress,well-hydratedHead: normalEyes: Anicteric sclera.Lungs: lungs clear to auscultation, no wheezing or rhonchiHeart: RRR without murmurExtremities: no edemaNeuro: Alert and oriented.Labs:CBC, Coags, BMP, Mg, PhosRecent Labs 5 533 WBC 4.87 4.43 4.93HB 7.9* 8.0* 7.9*HCT 25.0* 25.1* 24.9*PLT 495* 470* 505*NA 137 138 139K 4.3 4.4 4.4CHLOR 101 102 102CO2 29 29 27BUN 11 10 9*CREAT 0.54* 0.56* 0.59*GLUC 149* 165* 133*CA 8.0* 7.9* 8.1*MG 2.3 2.3 2.3P 2.0* 2.1* 2.8Medications:Current hospital medications:apixaban 5 mg tab(s) (ELIQUIS) 5 mg ORAL BIDsodium phosphate 30 mmol in D5W 250 mL 30 mmol INTRAVENOUS ONCEatorvastatin 40 mg tab(s) (LIPITOR) 40 mg ORAL AT BEDTIMEpantoprazole DR 20 mg tab(s) (PROTONIX) 20 mg ORAL BIDmetoprolol tartrate (short acting) 50 mg tab(s) (LOPRESSOR) 50 mg ORAL q12 H0.9% NaCl 2-10 mL 2-10 mL INTRAVENOUS q 12 Hinsulin lispro injection (rapid acting) (HumaLOG) SUBCUTANEOUS w MEALSAND HSphenol 1 [place] (CHLORASEPTIC) 1 [place] MUCOUS MEMBRANE (TOPICAL MOUTH ANDTHROAT) q 2 H PRN0.9% NaCl 10 mL 10 mL INTRAVENOUS q 12 H0.9% NaCl 20 mL 20 mL INTRAVENOUS PRNacetaminophen 650 mg tab(s) (TYLENOL) 650 mg ORAL q 6 H PRNoxyCODONE IR 5 mg tab(s) (ROXICODONE) 5 mg ORAL q 4 H PRNiv contrast (radiology procedure) INTRAVENOUS DIRECTED PRNnitroglycerin sublingual 0.4 mg tab(s) (NITROQUICK) 0.4 mg SUBLINGUAL q 5MIN PRNdextrose 40 % 15 g (INSTA-GLUCOSE) 15 g ORAL PRNglucagon 1 mg injection (GLUCAGEN) 1 mg INTRAMUSCULAR PRNdextrose 50% in water 25 mL syringe 12.5 g INTRAVENOUS PRNaspirin, enteric coated 162 mg tab(s) (ASPIRIN, ENTERIC COATED) 162 mgORAL DAILYHYDROmorphone 0.2 mg injection (DILAUDID) 0.2 mg INTRAVENOUS q 2 H Josselin Mayorga MD CardiologyTo's Date: September 01, 2017Time: 10:00 AM Normal [facility] Comp Metabolic Panelon 09-01 Alanine aminotransferase (ALT) 74 U/L High 5-50 [facility] Comment on above: Performed By: #### P T, PTT, AMYL, CMP, LIPA, PHOS ####[place] [address]#### TRANSF ####[place] [address] Albumin 2.9 g/dL Low 3.5-5.0 [facility] Comment on above: Performed By: #### P T, PTT, AMYL, CMP, LIPA, PHOS ####[place] [address]#### TRANSF ####[place] [address] Alkaline phosphatase (ALP) 490 U/L High 40-150 [facility] Comment on above: Performed By: #### P T, PTT, AMYL, CMP, LIPA, PHOS ####[place] [address]#### TRANSF ####[place] [address] Anion gap 7 mmol/L Low 9-18 [facility] Comment on above: Performed By: #### P T, PTT, AMYL, CMP, LIPA, PHOS ####[place] [address]#### TRANSF ####[place] [address] Aspartate aminotransferase (AST) 93 U/L High 7-40 [facility] Comment on above: Performed By: #### P T, PTT, AMYL, CMP, LIPA, PHOS ####[place] [address]#### TRANSF ####[place] [address] Bilirubin (total) 0.4 mg/dL Normal 0.0-1.5 [facility] Comment on above: Performed By: #### P T, PTT, AMYL, CMP, LIPA, PHOS ####[place] [address]#### TRANSF ####[place] [address] Calcium 8.0 mg/dL Low 8.5-10.5 [facility] Comment on above: Performed By: #### P T, PTT, AMYL, CMP, LIPA, PHOS ####[place] [address]#### TRANSF ####[place] [address] Chloride 101 mmol/L Normal 98-110 [facility] Comment on above: Performed By: #### P T, PTT, AMYL, CMP, LIPA, PHOS ####[place] [address]#### TRANSF ####[place] [id number] CO2 29 mmol/L Normal 23-32 [facility] Comment on above: Performed By: #### P T, PTT, AMYL, CMP, LIPA, PHOS ####[place] [address]#### TRANSF ####[place] [address] Creatinine 0.54 mg/dL Low 0.70-1.40 [facility] Comment on above: Performed By: #### P T, PTT, AMYL, CMP, LIPA, PHOS ####[address]#### TRANSF ####[place] [address] eGFR (non-black) mL/min/{1.73_m2} Normal >60 [facility] Comment on above: Performed By: #### P T, PTT, AMYL, CMP, LIPA, PHOS ####[place] [address]#### TRANSF ####[place] [address] Glucose mass conc 149 mg/dL High 65-100 [facility] Comment on above: Performed By: #### P T, PTT, AMYL, CMP, LIPA, PHOS ####[place] [address]#### TRANSF ####[place] [address] Potassium molar conc 4.3 mmol/L Normal 3.5-5.0 [facility] Comment on above: Performed By: #### P T, PTT, AMYL, CMP, LIPA, PHOS ####[place] [address]#### TRANSF ####[place] [address] Protein 6.6 g/dL Normal 6.0-8.4 [facility] Comment on above: Performed By: #### P T, PTT, AMYL, CMP, LIPA, PHOS ####[place] [address]#### TRANSF ####[place] [address] Sodium 137 mmol/L Normal 135-146 [facility] Comment on above: Performed By: #### P T, PTT, AMYL, CMP, LIPA, PHOS ####[place] [address]#### TRANSF ####[place] [phone] Urea nitrogen 11 mg/dL Normal 10-25 [facility] Comment on above: Performed By: #### P T, PTT, AMYL, CMP, LIPA, PHOS ####[place] [address]#### TRANSF ####[place] [address] Magnesiumon 09-01-2017 Magnesium 2.3 mg/dL Normal 1.7-2.6 [facility] Comment on above: Performed By: #### P T, PTT, AMYL, CMP, LIPA, PHOS ####[place] [address]#### TRANSF ####[place] [phone] NURSING PROGon 09-01-2017 NURSING PROG HNO ID: [id number] thor: Sabrina (Rn) Ever, RNService: (none)Author Type: Registered NurseType: Nursing Progress NoteFiled: 09/01/2017 11:54 AMNote Text: Nursing Progress NotePatient Name: Rocio TorresdonnyMRN: [id number] Location: [place] [address]/[id number] ____Daily Note:1153- Surgery López fisher in room PK336. Went to flush biliary drainand large amount of output started draining from site. Also does patientneed phosphate prior to d/c? Thanks! -mary ellen #[id number] Awaiting further orders.This note was completed by: Sabrina Curtis RN [facility] PLAN OF CAREon 09-01-2017 PLAN OF CARE HNO ID: [id number] thor: Miriam Britt (Retail Sales Associate Seasonal)Service: (none)Author Type: TechnicianType: Plan of CareFiled: 09/02/2017 12:34 PMNote Text:RECHECKER BEDSIDE DELIVERY SURVEY1. Patient to use [facility] Bedside Delivery - N/A2. If fax, patient would like us to fax prescriptions to [facility]. Pharmacy: b. Location: c. Phone:3. Insurance card on file - N/A4. Credit card for payment - N/A [facility] PROGRESSon 09-01-2017 PROGRESS HNO ID: [id number] thor: Kayleen (Res) BenliceService: General SurgeryAuthor Type: ResidentType: Progress NotesFiled: 09/01/2017 7:46 AMNote Text:PROGRESS NOTES - SURGICAL SERVICESPATIENT NAME: Rocio JacksonMRN: [id number] HISTORY OF PRESENT ILLNESS:Resting well. No acute issues overnight. BM+, Flatus+. Pain minimal. Nonausea. Denies SoB/CP.PHYSICAL EXAM:BP 104/61 Pulse 72 Temp 36.9 ?C (98.5 ?F) (Oral) Resp 16 Ht 172.7cm (5' 8 ) Wt 87.1 kg (192 lb) SpO2 96% BMI 29.19 kg/m2Body mass index is 29.19 kg/(m2).GENERAL: Alert and oriented, no acute distress, cooperative.CARDIAC: regular rate and rythmLUNGS: Non labored breathingABDOMEN: soft, non tender, non distended.PTHC is capped, IR drain withscant clear drainage.CBC, Coags, BMP, Mg, PhosRecent Labs 08/31/1804WBC 4.87 4.43 4.93HB 7.9* 8.0* 7.9*HCT 25.0* 25.1* 24.9*PLT 495* 470* 505*NA 137 138 139K 4.3 4.4 4.4CHLOR 101 102 102CO2 29 29 27BUN 11 10 9*CREAT 0.54* 0.56* 0.59*GLUC 149* 165* 133*CA 8.0* 7.9* 8.1*MG 2.3 2.3 2.3P 2.0* 2.1* 2.8Liver Function, Amylase, AND LipaseRecent Labs 08/31/1804TPROT 6.6 6.4 6.6ALB 2.9* 2.8* 3.0*ALT 74* 55* 34AST 93* 59* 41*ALKPHOS 490* 475* 480*TBILI 0.4 0.4 0.5Intake/Output Summary (Last 24 hours) at 09/01/17 0746Last data filed at 08/31/17 1956 Gross per 24 hourIntake 5 mlOutput 1451 mlNet -1446 mlSURGERY/PROCEDURE:Procedur e(s) and Anesthesia Type: * ANESTHESIA FOR NON-INVASIVE IMAGING OR RADIATION THERAPY - Choice -Anesthesia ConsultASSESSMENT AND PLAN:62 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 Doing well.??-Continue fulls with supplements-Capped?PTHC, no increased drainage from other drains-Will follow up CMP-No Abx-No [place]- F/U LFTs-VTE Prophylaxis: enoxaparin, SCDs-Routine surgical care: IS, OOB- Will remove PICC line prior to discharge-DC today, [facility] or to SNFSIGNATURE: Kayleen Gonzales MDDATE: September 01, 2017TIME: 7:46 AM Normal [facility] Phosphoruson 09-01-2017 Phosphate 2.0 mg/dL Low 2.5-4.5 [facility] Comment on above: Performed By: #### P T, PTT, AMYL, CMP, LIPA, PHOS ####[facility] [place], [place] [phone]#### TRANSF ####[facility] [place], [place] [phone] ALLIED HEALTHon 08-31-2017 ALLIED HEALTH HNO ID: [id number] thor: Lauren KenInstruction Librarian) Osvaldovice: Spiritual CareAuthor Type: ChaplainType: Allied HealthFiled: 08/31/2017 11:01 AMNote Text:SPIRITUAL CARE PROGRESS NOTESERVICE DATE: 08/31/2017SERVICE TIME: 10:15 [facility] provided spiritual care visit with patient per request forSpiritual Care consultation. Patient was present in the room with 2family members. I provided active listening and introduction of ourservices as needed.Patient was introduced to the resources offered through Spiritual Care andHealing Services, and informed of the availability of a small business consultant shouldfurther needs arise. There were no further needs at this time.To contact the Spiritual Care Department: Please call [phone], place aSpiritual Care Consult (or page the small business consultant on-call at [phone] foremergent needs).SIGNATURE: Lauren Chantal Chaplain Ronni PATIENT NAME: Rocio Sibley: August 31, 2017 : 10:59 AM PAGER/CONTACT #: [phone] [facility] CASE MANAGEMon 08-31-2017 CASE MANAGEM HNO ID: [id number] thor: Alexandrea (Rn) Thom, RNService: Care ManagementAuthor Type: Registered NurseType: Care Mgt Progress NoteFiled: 08/31/2017 2:12 PMNote Text:CARE MANAGEMENT PROGRESS NOTESERVICE DATE: 08/31/2017SERVICE TIME: 12:14 PM LOS: 18 daysNeeds Prior to Discharge: To Be DeterminedThis met with Pt and his sisters at bedside.Per Pt and his sisters, the plan is for [facility] [place].Medical Clearance is needed.Per discussion with SAIMA Briggs, the plan is for dc tomorrow,SIGNATURE: Alexandrea Tomas RN PATIENT NAME: Rocio JacksonDATE: August 31, 2017 : 12:12 PM PAGER/CONTACT #: [phone] [facility] CBC and Differentialon 08-31 Abs Baso <0.03 Normal <0.11 [facility] Comment on above: Performed By: #### P T, PTT, AMYL, CMP, LIPA, PHOS ####[place] [address]#### TRANSF ####[place] [address] [address] [phone] Abs [place] 0.30 k/uL Normal <0.87 [facility] Comment on above: Performed By: #### P T, PTT, AMYL, CMP, LIPA, PHOS ####[place] [address]#### TRANSF ####[place] [phone] Abs Neut 2.32 k/uL Normal 1.45-7.50 [facility] Comment on above: Performed By: #### P T, PTT, AMYL, CMP, LIPA, PHOS ####[place] [address]#### TRANSF ####[place] [address] Basophils/100 WBC Auto (Bld) 0.5 % Normal [facility] Comment on above: Performed By: #### P T, PTT, AMYL, CMP, LIPA, PHOS ####[place] [address]#### TRANSF ####[place] [address] DTYPE Auto Diff Normal [facility] Comment on above: Performed By: #### P T, PTT, AMYL, CMP, LIPA, PHOS ####[place] [address]#### TRANSF ####[address] [place] [phone] Eosinophils 0.23 10*3/uL Normal <0.46 [facility] Comment on above: Performed By: #### P T, PTT, AMYL, CMP, LIPA, PHOS ####[place] [address]#### TRANSF ####[address] [address] [place] [phone] Eosinophils/100 leukocytes 5.2 % [facility] Comment on above: Performed By: #### P T, PTT, AMYL, CMP, LIPA, PHOS ####[place] [address]#### TRANSF ####[place] [address] Erythrocyte distribution width Auto Ratio (RBC) 15.2 % High 11.5-15.0 [facility] Comment on above: Performed By: #### P T, PTT, AMYL, CMP, LIPA, PHOS ####[place] [address]#### TRANSF ####[place] [address] Erythrocytes (RBC) 2.94 10*6/uL Low 4.20-6.00 [facility] Comment on above: Performed By: #### P T, PTT, AMYL, CMP, LIPA, PHOS ####[place] [address]#### TRANSF ####[place] [address] Hematocrit (HCT) 25.1 % Low 39.0-51.0 [facility] Comment on above: Performed By: #### P T, PTT, AMYL, CMP, LIPA, PHOS ####[place] [address]#### TRANSF ####[address] [place] [phone] Hemoglobin mass conc (Bld) 8.0 g/dL Low 13.0-17.0 [facility] Comment on above: Performed By: #### P T, PTT, AMYL, CMP, LIPA, PHOS ####[place] [address]#### TRANSF ####[place] [phone] Lymphocytes 1.56 10*3/uL Normal 1.00-4.00 [facility] Comment on above: Performed By: #### P T, PTT, AMYL, CMP, LIPA, PHOS ####[place] [address]#### TRANSF ####[place] [address] Lymphocytes/100 leukocytes 35.2 % Normal [facility] Comment on above: Performed By: #### P T, PTT, AMYL, CMP, LIPA, PHOS ####[place] [address]#### TRANSF ####[place] [address] MCH 27.2 pG Normal 26.0-34.0 [facility] Comment on above: Performed By: #### P T, PTT, AMYL, CMP, LIPA, PHOS ####[place] [address]#### TRANSF ####[place] [phone] MCHC mass conc (RBC) 31.9 g/dL Normal 30.5-36.0 [facility] Comment on above: Performed By: #### P T, PTT, AMYL, CMP, LIPA, PHOS ####[address]#### TRANSF ####[place] [address] MCV 85.4 fL Normal 80.0-100.0 [facility] Comment on above: Performed By: #### P T, PTT, AMYL, CMP, LIPA, PHOS ####[place] [address]#### TRANSF ####[place] [address] [address] [place] [phone] Monocytes/100 leukocytes 6.8 % Normal [facility] Comment on above: Performed By: #### P T, PTT, AMYL, CMP, LIPA, PHOS ####[place] [address]#### TRANSF ####[address] [place] [phone] Neutrophils/100 WBC Auto (Bld) 52.3 % Normal [facility] Comment on above: Performed By: #### P T, PTT, AMYL, CMP, LIPA, PHOS ####[place] [address]#### TRANSF ####[place] [phone] Platelet mean volume (PMV) 9.3 fL Normal 9.0-12.7 [facility] Comment on above: Performed By: #### P T, PTT, AMYL, CMP, LIPA, PHOS ####[place] [address]#### TRANSF ####[place] [phone] Platelets 470 10*3/uL High 150-400 [facility] Comment on above: Performed By: #### P T, PTT, AMYL, CMP, LIPA, PHOS ####[place] [address]#### TRANSF ####[address] [place] [phone] WBC (Leukocytes) 4.43 10*3/uL Normal 3.70-11.00 [facility] Comment on above: Performed By: #### P T, PTT, AMYL, CMP, LIPA, PHOS ####[place] [phone]#### TRANSF ####[phone] Comp Metabolic Panelon 08-31 Alanine aminotransferase (ALT) 55 U/L High 5-50 [facility] Comment on above: Performed By: #### P T, PTT, AMYL, CMP, LIPA, PHOS ####[place] [address]#### TRANSF ####[phone] Albumin 2.8 g/dL Low 3.5-5.0 [facility] Comment on above: Performed By: #### P T, PTT, AMYL, CMP, LIPA, PHOS ####[place] [address]#### TRANSF ####[place] [phone] Alkaline phosphatase (ALP) 475 U/L High 40-150 [facility] Comment on above: Performed By: #### P T, PTT, AMYL, CMP, LIPA, PHOS ####[address]#### TRANSF ####[place] [address] Anion gap 7 mmol/L Low 9-18 [facility] Comment on above: Performed By: #### P T, PTT, AMYL, CMP, LIPA, PHOS ####[place] [address]#### TRANSF ####[address] [place] [phone] Aspartate aminotransferase (AST) 59 U/L High 7-40 [facility] Comment on above: Performed By: #### P T, PTT, AMYL, CMP, LIPA, PHOS ####[place] [address]#### TRANSF ####[place] [address] Bilirubin (total) 0.4 mg/dL Normal 0.0-1.5 [facility] Comment on above: Performed By: #### P T, PTT, AMYL, CMP, LIPA, PHOS ####[place] [address]#### TRANSF ####[place] [address] Calcium 7.9 mg/dL Low 8.5-10.5 [facility] Comment on above: Performed By: #### P T, PTT, AMYL, CMP, LIPA, PHOS ####[place] [address]#### TRANSF ####[place] [address] Chloride 102 mmol/L Normal 98-110 [facility] Comment on above: Performed By: #### P T, PTT, AMYL, CMP, LIPA, PHOS ####[place] [address]#### TRANSF ####[place] [phone] CO2 29 mmol/L Normal 23-32 [facility] Comment on above: Performed By: #### P T, PTT, AMYL, CMP, LIPA, PHOS ####[place] [address]#### TRANSF ####[address] [place] [phone] Creatinine 0.56 mg/dL Low 0.70-1.40 [facility] Comment on above: Performed By: #### P T, PTT, AMYL, CMP, LIPA, PHOS ####[place] [address]#### TRANSF ####[place] [address] eGFR (non-black) mL/min/{1.73_m2} Normal >60 [facility] Comment on above: Performed By: #### P T, PTT, AMYL, CMP, LIPA, PHOS ####[place] [address]#### TRANSF ####[place] [address] Glucose mass conc 165 mg/dL High 65-100 [facility] Comment on above: Performed By: #### P T, PTT, AMYL, CMP, LIPA, PHOS ####[address]#### TRANSF ####[place] [phone] Potassium molar conc 4.4 mmol/L Normal 3.5-5.0 [facility] Comment on above: Performed By: #### P T, PTT, AMYL, CMP, LIPA, PHOS ####[place] [phone]#### TRANSF ####[place] [address] Protein 6.4 g/dL Normal 6.0-8.4 [facility] Comment on above: Performed By: #### P T, PTT, AMYL, CMP, LIPA, PHOS ####[place] [address]#### TRANSF ####[place] [address] Sodium 138 mmol/L Normal 135-146 [facility] Comment on above: Performed By: #### P T, PTT, AMYL, CMP, LIPA, PHOS ####[place] [address]#### TRANSF ####[place] [address] Urea nitrogen 10 mg/dL Normal 10-25 [facility] Comment on above: Performed By: #### P T, PTT, AMYL, CMP, LIPA, PHOS ####[place] [address]#### TRANSF ####[phone] Magnesiumon 08-31-2017 Magnesium 2.3 mg/dL Normal 1.7-2.6 [facility] Comment on above: Performed By: #### P T, PTT, AMYL, CMP, LIPA, PHOS ####[place] [address]#### TRANSF ####[place] [address] PLAN OF CAREon 08-31-2017 PLAN OF CARE HNO ID: [id number] thor: Miriam Britt (Retail Sales Associate Seasonal)Service: (none)Author Type: TechnicianType: Plan of CareFiled: 08/31/2017 2:26 PMNote Text:RECHECKER BEDSIDE DELIVERY SURVEY1. Patient to use [facility] Bedside Delivery - N/A2. If fax, patient would like us to fax prescriptions to [facility]. Pharmacy: b. Location: c. Phone:3. Insurance card on file - N/A4. Credit card for payment - N/A [facility] PLAN OF CARE HNO ID: [id number] thor: Macie Cruz (Pharmacist)Service: PharmacyAuthor Type: PharmacistType: Plan of CareFiled: 08/31/2017 9:28 AMNote Text:DISCHARGE MEDICATION REVIEW BY PHARMACYPatient Name: Rocio Jackson : [id number] Admission Date: 08/13/2017Date of Contact: August 31, 2017 Time of Contact: 9:28 AMMedication list was reviewed by a Pharmacist for drug interactions or drugrelated problems:Kathryn FreemanChrist Hospitaljosé miguel 2017 9:28 AMMedication ListSTART taking these medications acetaminophen 325 mg tabletCommonly known as: TYLENOLTake 2 tablets by mouth every 6 hours as needed. metoprolol tartrate (short acting) 50 mg tabletCommonly known as: LOPRESSORTake 1 tablet by mouth every 12 hours. oxyCODONE IR 5 mg immediate release tabletCommonly known as: ROXICODONETake 1 tablet by mouth every 8 hours as needed for Pain for up to 5 days.CONTINUE taking these medications atorvastatin 40 mg tabletCommonly known as: LIPITOR ECOTRIN LOW STRENGTH 81 mg EC tabletGeneric drug: aspirin, enteric coated metFORMIN 1,000 mg tabletCommonly known as: GLUCOPHAGE NITROSTAT 0.4 mg SL tabletGeneric drug: nitroglycerin sublingual Omeprazole Magnesium 20 mg Cpdr ONGLYZA 5 mg TabGeneric drug: sAXagliptinSTOP taking these medications carvedilol 12.5 mg tabletCommonly known as: COREG lisinopril 2.5 mg tabletWhere to Get Your MedicationsInformation about where to get these medications is not yet available ! Ask your nurse or doctor about these medications - acetaminophen 325 mg tablet- metoprolol tartrate (short acting) 50 mg tablet- oxyCODONE IR 5 mg immediate release tablet [facility] PROGRESSon 08-31-2017 PROGRESS HNO ID: [id number] thor: Michael Cedillo) AugustinService: General SurgeryAuthor Type: PhysicianType: Progress NotesFiled: 08/31/2017 7:00 PMNote Text:PROGRESS NOTES - SURGICAL SERVICESPATIENT NAME: Rocio JacksonMRN: [id number] HISTORY OF PRESENT ILLNESS:Resting well. No acute issues overnight. BM+, Flatus+. Pain minimal. Nonausea. Denies SoB/CP.?PHYSICAL EXAM:BP 101/59 Pulse 71 Temp 37.1 ?C (98.7 ?F) (Oral) Resp 16 Ht 172.7cm (5' 8 ) Wt 87.1 kg (192 lb) SpO2 97% BMI 29.19 kg/m2Body mass index is 29.19 kg/(m2).GENERAL: Alert and oriented, no acute distress, cooperative.CARDIAC: regular rate and rythmLUNGS: Non labored breathingABDOMEN: soft, non tender, non distended. PTHC is capped, IR drain withscant clear drainage.?CBC, Coags, BMP, Mg, PhosRecent Labs 08/31/1803WBC 4.43 4.93 4.75HB 8.0* 7.9* 8.1*HCT 25.1* 24.9* 26.1*PLT 470* 505* 508*NA 138 139 139K 4.4 4.4 4.3CHLOR 102 102 103CO2 29 27 26BUN 10 9* 10CREAT 0.56* 0.59* 0.66*GLUC 165* 133* 118*CA 7.9* 8.1* 8.4*MG 2.3 2.3 2.2P 2.1* 2.8 2.6Liver Function, Amylase, AND LipaseRecent Labs 08/31/1803TPROT 6.4 6.6ALB 2.8* 3.0*ALT 55* 34AST 59* 41*ALKPHOS 475* 480*TBILI 0.4 0.5Intake/Output Summary (Last 24 hours) at 08/31/17 0835Last data filed at 08/31/17 0751 Gross per 24 hourIntake 1625 mlOutput 2550 mlNet -925 mlSURGERY/PROCEDURE:Procedur e(s) and Anesthesia Type: * ANESTHESIA FOR NON-INVASIVE IMAGING OR RADIATION THERAPY - Choice -Anesthesia ConsultASSESSMENT AND PLAN:62 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 Doing well.?-Continue fulls with supplements-Capped PTHC, no increased drainage from other drains-Will follow up CMP-No Abx-No [place]- F/U LFTs-VTE Prophylaxis: enoxaparin, SCDs-Routine surgical care: IS, OOB- Will remove PICC line prior to discharge-Anticipate DC today, with HHC or to SNF?SIGNATURE: Kayleen Gonzales MDDATE: August 31, 2017TIME: 8:35 EMMIE ALEGREI have independently seen and examined the patient today. I haveindependently reviewed all the imaging and the labs. I agree with keycomponents of the resident's note above. Care plan and decision making hasbeen discussed.Doing well, discharge planningToms MD Froilan, MPH, FACSGeneral/Trauma/HPB SurgeryPager: [phone] Cell: [phone] 2017 [facility] Phosphoruson 08-31-2017 Phosphate 2.1 mg/dL Low 2.5-4.5 [facility] Comment on above: Performed By: #### P T, PTT, AMYL, CMP, LIPA, PHOS ####[facility] [place] [phone]#### TRANSF ####[facility] [address] [place] [phone] THERAPY NTon 08-31-2017 THERAPY NT HNO ID: [id number] thor: Adela (Joe) Jhonatane: Physical TherapyAuthor Type: Physical Therapy AssistantType: Therapy (PT/OT/Speech/Resp)Filed: 08/31/2017 3:24 PMNote Text: -Attestation signed by Tonia Schmitz at 08/31/2017 3:44 PMI reviewed and agree with the documentation corresponding to this therapyvisit.SIGNATURE: Tonia Schmitz, PTDATE: August 31, 2017TIME: 3:44 PM Ph ysical Therapy TreatmentSERVICE DATE: 08/31/2017SERVICE TIME: 1350 to 1415ROOM: [place] [address] ( OPERATING ROOM)Recommended Discharge Disposition: Subacute/SNFRecommended Discharge Disposition Comments: (SNF)Justification For Post Acute Needs: Anticipate that patient will requiredaily (5x/wk) skilled therapy in a post-acute facility setting at the timeof acute hospital discharge;Willing to participate;Motivated;Medica llycomplex;Living the community premorbidly;Good sitting tolerance;Goodfamily support;Cognition intact;Anticipated community dischargeAnticipated Discharge Needs: Supervision at HomePhysical Assist at Home for:Cleaning;Laundry;Meals;S hopping;Transportation;Ambul ationSupervision at Home due to: Other: See Comment (recent surgery)Recommended Discharge Equipment: Wheeled WalkerPT Recommendations to Nursing: Ambulate with device using gait belt;Tobathroom using gait belt;In halls using gait belt;OOB for Meals using gaitbelt;With assist of 1 personDevice: Wheeled WalkerPT 6 Clicks Score: 19Precautions/Activity Restrictions: Fall Risk;Lines/Tubes/DrainsASSES SMENT :Tolerance Limited By Fatigue;Pain (weakness, c/o pain r LE)Physical Therapy Problem List: Edema;Safety Deficits;Impaired SelfCare;Decreased Activity Tolerance;Decreased Strength;Functional MobilityImpairment;Balance ImpairedPatient /Caregiver Goals: Go HomeGoals for Plan of Care:Able to perform HEP with: IndependentRolling with: Modified IndependentTransfer supine to/from sit with: Modified IndependentTransfer sit to/from stand with: Modified IndependentAmbulate with: Modified IndependentDistance: 200'Device: Wheeled WalkerAmbulate up and down steps with: Modified IndependentNumber of steps: 4Device: RailProgress Toward Goals: Progressing as expectedRehab Potential: GoodPLAN:Treatment Frequency (times per week): 2 (and 2prn visits.) Current admissionTreatment Interventions: Education;Strengthening;Func tional MobilityTraining;Balance Training;Self Care / Home ManagementPlan of Care developed with: PatientTREATMENT INTERVENTIONS:Therapy Diagnosis: Reduced mobility-other;Muscle Weakness(generalized);Unstea diness on feet;Difficulty walking-musculoskeletalInter ventions Provided: Therapeutic Exercise (45271);Gait Training (30614)Therapeutic Exercise (56655) Treatment Minutes: 101 unitSkilled Intervention(s): Instruction in therapeutic exercise for B LEstrengtheningVerbal and tactile cuing provided for pace and performanceGait Training (18411) Treatment Minutes: 151 unitSkilled Intervention(s): Instruction in sit to stand technique with properhand placement and body positioning at edge of bed/chair, Instruction instand to sit technique with LE's touching chair/bed and reaching back forsurface, Instruction in sequencing, gait pattern, Instruction incorrection of gait deviations and Instruction in use of equipment, cuesfor sequence and patternTotal Timed Code Treatment Minutes: 25Total Treatment Time (minutes): 25FUNCTIONAL G CODE:PT 6 Clicks Score: 19 (08/31/17 1350)Mobility: Walking and Moving Around Current Status (G8978): ()Mobility: Walking and Moving Around Goal Status (G8979): ()Based on clinical assessment and the score on the 6 Clicks FunctionalAssessment Tool, the G code and corresponding severity modifiers aredocumented above.SUBJECTIVE:Current Hospital Course: Chart reviewed and no significant medical updatesrelevant to therapy were notedPatient Report: i'm weak, but i'd like to walk Home EnvironmentPatient Lives With: Family (with daughter and son;2 floor house)Assistance Available: PRNEntry To Home: Stairs;Without RailNumber Of Stairs Into Home: 2Number Of Stairs To Bed/Bath: 0 (1st floor living)Tub/Shower Type: walk in showerLaundry: dtr does house chores.Equipment Owned: (sister has std walker and cane that pt can borrow.)Prior Functional Level: Required AssistanceAssistance Required With: Cleaning;Laundry;Meals;Shopp ingPrior Functional Level Comments: pt drives; works;indep ambul without asstdevice.OBJECTIVE:CURRENT FUNCTIONAL STATUS:Current Functional Mobility Assist Level Additional InformationRolling Modified IndependentSupine to Sit Minimal AssistanceSit to Supine Minimal AssistanceScooting SupervisionSit to Stand Contact Guard AssistanceStand to Sit Contact Guard AssistanceBed to ChairToilet/CommodeGait Contact Guard Assistance Gait Device: Wheeled Walker Gait Distance (feet): 100 ft x 2StairsCurb StepCar TransferGait Deviations Right Lower Extremity: Weight bearing decreased;Stancetime decreased;Step length decreasedGeneral Gait Deviations: Anushka decreased;Flexed trunk posture;NarrowBase of SupportBalance: Dynamic StandingDynamic Standing Balance: Contact Guard AssistancePlease see discipline specific clinical documentation flowsheet forcomplete details for this therapy evaluation/treatment.SIGNATU RE: Adela Leong PTA PATIENT NAME: Rocio Sibley: August 31, 2017 : 3:22 PM PAGER/CONTACT #: [phone] [facility] Basic Metabolic Panlon 08-30 Anion gap 10 mmol/L Normal 9-18 [facility] Comment on above: Performed By: #### P T, PTT, AMYL, CMP, LIPA, PHOS ####[place] [address]#### TRANSF ####[place] [address] Calcium 8.1 mg/dL Low 8.5-10.5 [facility] Comment on above: Performed By: #### P T, PTT, AMYL, CMP, LIPA, PHOS ####[address]#### TRANSF ####[place] [address] [address] [place] [phone] Chloride 102 mmol/L Normal 98-110 [facility] Comment on above: Performed By: #### P T, PTT, AMYL, CMP, LIPA, PHOS ####[place] [address]#### TRANSF ####[place] [address] [place] [phone] CO2 27 mmol/L Normal 23-32 [facility] Comment on above: Performed By: #### P T, PTT, AMYL, CMP, LIPA, PHOS ####[place] [address]#### TRANSF ####[place] [address] Creatinine 0.59 mg/dL Low 0.70-1.40 [facility] Comment on above: Performed By: #### P T, PTT, AMYL, CMP, LIPA, PHOS ####[place] [address]#### TRANSF ####[place] [address] eGFR (non-black) mL/min/{1.73_m2} Normal >60 [facility] Comment on above: Performed By: #### P T, PTT, AMYL, CMP, LIPA, PHOS ####[place] [address]#### TRANSF ####[place] [address] Glucose mass conc 133 mg/dL High 65-100 [facility] Comment on above: Performed By: #### P T, PTT, AMYL, CMP, LIPA, PHOS ####[place] [address]#### TRANSF ####[place] [address] Potassium molar conc 4.4 mmol/L Normal 3.5-5.0 [facility] Comment on above: Performed By: #### P T, PTT, AMYL, CMP, LIPA, PHOS ####[place] [address]#### TRANSF ####[place] [address] Sodium 139 mmol/L Normal 135-146 [facility] Comment on above: Performed By: #### P T, PTT, AMYL, CMP, LIPA, PHOS ####[place] [address]#### TRANSF ####[place] [address] Urea nitrogen 9 mg/dL Low 10-25 [facility] Comment on above: Performed By: #### P T, PTT, AMYL, CMP, LIPA, PHOS ####[place] [address]#### TRANSF ####[place] [address] CBC and Differentialon 08-30 Abs Baso <0.03 Normal <0.11 [facility] Comment on above: Performed By: #### P T, PTT, AMYL, CMP, LIPA, PHOS ####[place] [address]#### TRANSF ####[place] [address] Abs [place] 0.42 k/uL Normal <0.87 [facility] Comment on above: Performed By: #### P T, PTT, AMYL, CMP, LIPA, PHOS ####[place] [address]#### TRANSF ####[place] [address] Abs Neut 2.87 k/uL Normal 1.45-7.50 [facility] Comment on above: Performed By: #### P T, PTT, AMYL, CMP, LIPA, PHOS ####[place] [address]#### TRANSF ####[place] [address] Basophils/100 WBC Auto (Bld) 0.4 % Normal [facility] Comment on above: Performed By: #### P T, PTT, AMYL, CMP, LIPA, PHOS ####[place] [address]#### TRANSF ####[address] [place] [phone] DTYPE Auto Diff Normal [facility] Comment on above: Performed By: #### P T, PTT, AMYL, CMP, LIPA, PHOS ####[place] [address]#### TRANSF ####[place] [address] Eosinophils 0.18 10*3/uL Normal <0.46 [facility] Comment on above: Performed By: #### P T, PTT, AMYL, CMP, LIPA, PHOS ####[place] [address]#### TRANSF ####[place] [address] Eosinophils/100 leukocytes 3.7 % Normal [facility] Comment on above: Performed By: #### P T, PTT, AMYL, CMP, LIPA, PHOS ####[place] [address]#### TRANSF ####[place] [address] Erythrocyte distribution width Auto Ratio (RBC) 15.4 % High 11.5-15.0 [facility] Comment on above: Performed By: #### P T, PTT, AMYL, CMP, LIPA, PHOS ####[place] [address]#### TRANSF ####[place] [address] [address] [place] [phone] Erythrocytes (RBC) 2.91 10*6/uL Low 4.20-6.00 [facility] Comment on above: Performed By: #### P T, PTT, AMYL, CMP, LIPA, PHOS ####[place] [address]#### TRANSF ####[place] [address] Hematocrit (HCT) 24.9 % Low 39.0-51.0 [facility] Comment on above: Performed By: #### P T, PTT, AMYL, CMP, LIPA, PHOS ####[place] [address]#### TRANSF ####[place] [address] Hemoglobin mass conc (Bld) 7.9 g/dL Low 13.0-17.0 [facility] Comment on above: Performed By: #### P T, PTT, AMYL, CMP, LIPA, PHOS ####[place] [address]#### TRANSF ####[place] [address] Lymphocytes 1.44 10*3/uL Normal 1.00-4.00 [facility] Comment on above: Performed By: #### P T, PTT, AMYL, CMP, LIPA, PHOS ####[place] [address]#### TRANSF ####[place] [address] Lymphocytes/100 leukocytes 29.2 % Normal [facility] Comment on above: Performed By: #### P T, PTT, AMYL, CMP, LIPA, PHOS ####[place] [address]#### TRANSF ####[place] [address] MCH 27.1 pG Normal 26.0-34.0 [facility] Comment on above: Performed By: #### P T, PTT, AMYL, CMP, LIPA, PHOS ####[address]#### TRANSF ####[place] [address] MCHC mass conc (RBC) 31.7 g/dL Normal 30.5-36.0 [facility] Comment on above: Performed By: #### P T, PTT, AMYL, CMP, LIPA, PHOS ####[place] [address]#### TRANSF ####[place] [address] MCV 85.6 fL Normal 80.0-100.0 [facility] Comment on above: Performed By: #### P T, PTT, AMYL, CMP, LIPA, PHOS ####[place] [address]#### TRANSF ####[place] [address] Monocytes/100 leukocytes 8.5 % Normal [facility] Comment on above: Performed By: #### P T, PTT, AMYL, CMP, LIPA, PHOS ####[address]#### TRANSF ####[place] [address] Neutrophils/100 WBC Auto (Bld) 58.2 % Normal [facility] Comment on above: Performed By: #### P T, PTT, AMYL, CMP, LIPA, PHOS ####[address]#### TRANSF ####[place] [phone] Platelet mean volume (PMV) 9.4 fL Normal 9.0-12.7 [facility] Comment on above: Performed By: #### P T, PTT, AMYL, CMP, LIPA, PHOS ####[place] [address]#### TRANSF ####[phone] Platelets 505 10*3/uL High 150-400 [facility] Comment on above: Performed By: #### P T, PTT, AMYL, CMP, LIPA, PHOS ####[address]#### TRANSF ####[place] [address] WBC (Leukocytes) 4.93 10*3/uL Normal 3.70-11.00 [facility] Comment on above: Performed By: #### P T, PTT, AMYL, CMP, LIPA, PHOS ####[place] [address]#### TRANSF ####[place] [phone] Hepatic Functn Panelon 08-30 Alanine aminotransferase (ALT) 34 U/L Normal 5-50 [facility] Comment on above: Performed By: #### P T, PTT, AMYL, CMP, LIPA, PHOS ####[place] [phone]#### TRANSF ####[place] [phone] Albumin 3.0 g/dL Low 3.5-5.0 [facility] Comment on above: Performed By: #### P T, PTT, AMYL, CMP, LIPA, PHOS ####[place] [address]#### TRANSF ####[place] [phone] Alkaline phosphatase (ALP) 480 U/L High 40-150 [facility] Comment on above: Performed By: #### P T, PTT, AMYL, CMP, LIPA, PHOS ####[place] [address]#### TRANSF ####[place] [phone] Aspartate aminotransferase (AST) 41 U/L High 7-40 [facility] Comment on above: Performed By: #### P T, PTT, AMYL, CMP, LIPA, PHOS ####[place] [address]#### TRANSF ####[place] [phone] Bilirubin (total) 0.5 mg/dL Normal 0.0-1.5 [facility] Comment on above: Performed By: #### P T, PTT, AMYL, CMP, LIPA, PHOS ####[place] [address]#### TRANSF ####[place] [address] Bilirubin,Conjugated <0.2 Normal 0.0-0.4 [facility] Comment on above: Performed By: #### P T, PTT, AMYL, CMP, LIPA, PHOS ####[place] [address]#### TRANSF ####[place] [phone] Protein 6.6 g/dL Normal 6.0-8.4 [facility] Comment on above: Performed By: #### P T, PTT, AMYL, CMP, LIPA, PHOS ####[facility] [place], [place] [phone]#### TRANSF ####[facility] [place], [place] [phone] Magnesiumon 08-30-2017 Magnesium 2.3 mg/dL Normal 1.7-2.6 [facility] Comment on above: Performed By: #### P T, PTT, AMYL, CMP, LIPA, PHOS ####[place] [id number] [place], [place] [phone]#### TRANSF ####[facility] [place], [place] [phone] PROGRESSon 08-30-2017 PROGRESS HNO ID: [id number] thor: Michael Cedillo) AugustinService: General SurgeryAuthor Type: PhysicianType: Progress NotesFiled: 08/30/2017 10:38 AMNote Text: SURGERY INPATIENT PROGRESS NOTESName: Rocio Boudreaux: [id number] and Plan:62 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 Doing well.-Continue fulls with supplements-Capped PTHC, no increased drainage from other drains-Will follow up CMP-No Abx-No [place]-VTE Prophylaxis: enoxaparin, SCDs-Routine surgical care: IS, OOB- Will remove PICC line prior to discharge-Anticipate DC early next week, with [facility] or to SNFS: Resting well. No acute issues overnight. BM+, Flatus+. Pain minimal.No nausea. Denies SoB/CP.O:Current hospital medications:enoxaparin 40 mg injection (LOVENOX) 40 mg SUBCUTANEOUS q 24 HRatorvastatin 40 mg tab(s) (LIPITOR) 40 mg ORAL AT BEDTIMEpantoprazole DR 20 mg tab(s) (PROTONIX) 20 mg ORAL BIDmetoprolol tartrate (short acting) 50 mg tab(s) (LOPRESSOR) 50 mg ORAL q12 H0.9% NaCl 2-10 mL 2-10 mL INTRAVENOUS q 12 Hinsulin lispro injection (rapid acting) (HumaLOG) SUBCUTANEOUS w MEALSAND HSphenol 1 [place] (CHLORASEPTIC) 1 [place] MUCOUS MEMBRANE (TOPICAL MOUTH ANDTHROAT) q 2 H PRN0.9% NaCl 10 mL 10 mL INTRAVENOUS q 12 H0.9% NaCl 20 mL 20 mL INTRAVENOUS PRNacetaminophen 650 mg tab(s) (TYLENOL) 650 mg ORAL q 6 H PRNoxyCODONE IR 5 mg tab(s) (ROXICODONE) 5 mg ORAL q 4 H PRNiv contrast (radiology procedure) INTRAVENOUS DIRECTED PRNnitroglycerin sublingual 0.4 mg tab(s) (NITROQUICK) 0.4 mg SUBLINGUAL q 5MIN PRNdextrose 40 % 15 g (INSTA-GLUCOSE) 15 g ORAL PRNglucagon 1 mg injection (GLUCAGEN) 1 mg INTRAMUSCULAR PRNdextrose 50% in water 25 mL syringe 12.5 g INTRAVENOUS PRNaspirin, enteric coated 162 mg tab(s) (ASPIRIN, ENTERIC COATED) 162 mgORAL DAILYHYDROmorphone 0.2 mg injection (DILAUDID) 0.2 mg INTRAVENOUS q 2 H PRNBP 109/64 Pulse 71 Temp 36.4 ?C (97.6 ?F) (Oral) Resp 16 Ht 172.7cm (5' 8 ) Wt 87.1 kg (192 lb) SpO2 99% BMI 29.19 kg/n1Qegufr/Output Summary (Last 24 hours) at 08/30/17 0850Last data filed at 08/30/17 0834 Gross per 24 hourIntake 735 mlOutput 5275 mlNet -4540 mlCBC, Coags, BMP, Mg, PhosRecent Labs 08/30/1803WBC 4.93 4.75 5.72HB 7.9* 8.1* 8.4*HCT 24.9* 26.1* 26.4*PLT 505* 508* 518*NA 139 139 138K 4.4 4.3 4.5CHLOR 102 103 102CO2 27 26 26BUN 9* 10 9*CREAT 0.59* 0.66* 0.71GLUC 133* 118* 138*CA 8.1* 8.4* 8.8MG 2.3 2.2 2.2P 2.8 2.6 3.4Liver Function, Amylase, AND LipaseRecent Labs TPROT 6.6ALB 3.0*ALT 34AST 41*ALKPHOS 480*TBILI 0.5General Appearance: NADAbdomen: soft, non-tender, no distention. PTHC with bilious drainage, IRdrain with scant clear drainage.Serena Trent, MDPGY -1 General SurgeryOur Lady Of Mercy [facility] [address]:50 DARRELTANNEKA NOTEI have independently seen and examined the patient today. I haveindependently reviewed all the imaging and the labs. I agree with keycomponents of the resident's note above. Care plan and decision making hasbeen discussed.PTC was capped, J-P continues to be serous, patient tolerated PTC cappingwithout any issuesAppropriate by mouth intakeDischarge planningToms MD Froilan, MPH, FACSGeneral/Trauma/HPB SurgeryPager: [phone] Cell: [phone] 2017 Normal [facility] Phosphoruson 08-30-2017 Phosphate 2.8 mg/dL Normal 2.5-4.5 [facility] Comment on above: Performed By: #### P T, PTT, AMYL, CMP, LIPA, PHOS ####[place] [phone]#### TRANSF ####[place] [phone] Basic Metabolic Panlon 08-29 Anion gap 10 mmol/L Normal 9-18 [facility] Comment on above: Performed By: #### P T, PTT, AMYL, CMP, LIPA, PHOS ####[phone]#### TRANSF ####[place] [phone] Calcium 8.4 mg/dL Low 8.5-10.5 [facility] Comment on above: Performed By: #### P T, PTT, AMYL, CMP, LIPA, PHOS ####[place] [address]#### TRANSF ####[place] [phone] Chloride 103 mmol/L Normal 98-110 [facility] Comment on above: Performed By: #### P T, PTT, AMYL, CMP, LIPA, PHOS ####[place] [address]#### TRANSF ####[place] [phone] CO2 26 mmol/L Normal 23-32 [facility] Comment on above: Performed By: #### P T, PTT, AMYL, CMP, LIPA, PHOS ####[place] [address]#### TRANSF ####[place] [address] Creatinine 0.66 mg/dL Low 0.70-1.40 [facility] Comment on above: Performed By: #### P T, PTT, AMYL, CMP, LIPA, PHOS ####[place] [address]#### TRANSF ####[place] [phone] eGFR (non-black) mL/min/{1.73_m2} Normal >60 [facility] Comment on above: Performed By: #### P T, PTT, AMYL, CMP, LIPA, PHOS ####[place] [address]#### TRANSF ####[place] [phone] Glucose mass conc 118 mg/dL High 65-100 [facility] Comment on above: Performed By: #### P T, PTT, AMYL, CMP, LIPA, PHOS ####[place] [address]#### TRANSF ####[place] [phone] Potassium molar conc 4.3 mmol/L Normal 3.5-5.0 [facility] Comment on above: Performed By: #### P T, PTT, AMYL, CMP, LIPA, PHOS ####[place] [address]#### TRANSF ####[place] [phone] Sodium 139 mmol/L Normal 135-146 [facility] Comment on above: Performed By: #### P T, PTT, AMYL, CMP, LIPA, PHOS ####[place] [address]#### TRANSF ####[place] [phone] Urea nitrogen 10 mg/dL Normal 10-25 [facility] Comment on above: Performed By: #### P T, PTT, AMYL, CMP, LIPA, PHOS ####[place] [address]#### TRANSF ####[place] [phone] CBC and Differentialon 08-29 Abs Baso <0.03 Normal <0.11 [facility] Comment on above: Performed By: #### P T, PTT, AMYL, CMP, LIPA, PHOS ####[place] [address]#### TRANSF ####[place] [phone] Abs [place] 0.43 k/uL Normal <0.87 [facility] Comment on above: Performed By: #### P T, PTT, AMYL, CMP, LIPA, PHOS ####[place] [address]#### TRANSF ####[place] [phone] Abs Neut 2.71 k/uL Normal 1.45-7.50 [facility] Comment on above: Performed By: #### P T, PTT, AMYL, CMP, LIPA, PHOS ####[place] [address]#### TRANSF ####[place] [phone] Basophils/100 WBC Auto (Bld) 0.4 % Normal [facility] Comment on above: Performed By: #### P T, PTT, AMYL, CMP, LIPA, PHOS ####[place] [address]#### TRANSF ####[place] [phone] DTYPE Auto Diff [facility] Comment on above: Performed By: #### P T, PTT, AMYL, CMP, LIPA, PHOS ####[place] [address]#### TRANSF ####[place] [phone] Eosinophils 0.15 10*3/uL Normal <0.46 [facility] Comment on above: Performed By: #### P T, PTT, AMYL, CMP, LIPA, PHOS ####[place] [address]#### TRANSF ####[place] [phone] Eosinophils/100 leukocytes 3.2 % Normal [facility] Comment on above: Performed By: #### P T, PTT, AMYL, CMP, LIPA, PHOS ####[place] [address]#### TRANSF ####[place] [phone] Erythrocyte distribution width Auto Ratio (RBC) 15.1 % High 11.5-15.0 [facility] Comment on above: Performed By: #### P T, PTT, AMYL, CMP, LIPA, PHOS ####[place] [address]#### TRANSF ####[place] [phone] Erythrocytes (RBC) 2.98 10*6/uL Low 4.20-6.00 [facility] Comment on above: Performed By: #### P T, PTT, AMYL, CMP, LIPA, PHOS ####[place] [address]#### TRANSF ####[place] [phone] Hematocrit (HCT) 26.1 % Low 39.0-51.0 [facility] Comment on above: Performed By: #### P T, PTT, AMYL, CMP, LIPA, PHOS ####[place] [address]#### TRANSF ####[place] [phone] Hemoglobin mass conc (Bld) 8.1 g/dL Low 13.0-17.0 [facility] Comment on above: Performed By: #### P T, PTT, AMYL, CMP, LIPA, PHOS ####[place] [address]#### TRANSF ####[place] [phone] Lymphocytes 1.44 10*3/uL Normal 1.00-4.00 [facility] Comment on above: Performed By: #### P T, PTT, AMYL, CMP, LIPA, PHOS ####[place] [address]#### TRANSF ####[place] [phone] Lymphocytes/100 leukocytes 30.3 % Normal [facility] Comment on above: Performed By: #### P T, PTT, AMYL, CMP, LIPA, PHOS ####[place] [address]#### TRANSF ####[place] [phone] MCH 27.2 pG Normal 26.0-34.0 [facility] Comment on above: Performed By: #### P T, PTT, AMYL, CMP, LIPA, PHOS ####[place] [address]#### TRANSF ####[place] [phone] MCHC mass conc (RBC) 31.0 g/dL Normal 30.5-36.0 [facility] Comment on above: Performed By: #### P T, PTT, AMYL, CMP, LIPA, PHOS ####[place] [address]#### TRANSF ####[place] [phone] MCV 87.6 fL Normal 80.0-100.0 [facility] Comment on above: Performed By: #### P T, PTT, AMYL, CMP, LIPA, PHOS ####[place] [address]#### TRANSF ####[place] [phone] Monocytes/100 leukocytes 9.1 % Normal [facility] Comment on above: Performed By: #### P T, PTT, AMYL, CMP, LIPA, PHOS ####[place] [address]#### TRANSF ####[address] [place] [phone] Neutrophils/100 WBC Auto (Bld) 57.0 % Normal [facility] Comment on above: Performed By: #### P T, PTT, AMYL, CMP, LIPA, PHOS ####[place] [address]#### TRANSF ####[place] [phone] Platelet mean volume (PMV) 9.5 fL Normal 9.0-12.7 [facility] Comment on above: Performed By: #### P T, PTT, AMYL, CMP, LIPA, PHOS ####[place] [address]#### TRANSF ####[place] [phone] Platelets 508 10*3/uL High 150-400 [facility] Comment on above: Performed By: #### P T, PTT, AMYL, CMP, LIPA, PHOS ####[place] [address]#### TRANSF ####[place] [phone] WBC (Leukocytes) 4.75 10*3/uL Normal 3.70-11.00 [facility] Comment on above: Performed By: #### P T, PTT, AMYL, CMP, LIPA, PHOS ####[place] [phone]#### TRANSF ####[address] [place] [phone] Magnesiumon 08-29-2017 Magnesium 2.2 mg/dL Normal 1.7-2.6 [facility] Comment on above: Performed By: #### P T, PTT, AMYL, CMP, LIPA, PHOS ####[facility] [place], [place] [phone]#### TRANSF ####[facility] [address] [place], [place] [phone] NURSING PROGon 08-29-2017 NURSING PROG HNO ID: [id number] thor: Saima Kramer (Rn) Debra, RNService: (none)Author Type: Registered NurseType: Nursing Progress NoteFiled: 08/29/2017 4:09 PMNote Text: Nursing Progress NotePatient Name: Rociomarisa Boudreaux: [id number] Location: [place] [id number] ____Daily Note:Pt sitting in bed and upon assessment, pt tearful. Sisters atbedside. Encouraged pt to express feelings and support provided. IV fluidsstopped per orders. W/ SROC at bedside to verify drain - biliary draincapped per orders. Accordian drain draining scant amt of serosangdrainage. Pt tolerating GI soft diet and denies any nausea/vomiting.Abdomen is soft and nontender. Pt having soft, brown BM's. Voiding clear,yellow urine. Consult placed for spiritual care. 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 No acute issues overnight. BM+, Flatus+. Pain minimal.No nausea. Denies SoB/CP.O:Current hospital medications:atorvastatin 40 mg tab(s) (LIPITOR) 40 mg ORAL AT BEDTIMEpantoprazole DR 20 mg tab(s) (PROTONIX) 20 mg ORAL BIDlactated ringers infusion 75 mL/hr INTRAVENOUS CONTINUOUSmetoprolol tartrate (short acting) 50 mg tab(s) (LOPRESSOR) 50 mg ORAL q12 Hamoxicillin-clavulanate 875 mg oral liquid (AUGMENTIN) 875 mg ORAL q 12 H0.9% NaCl 2-10 mL 2-10 mL INTRAVENOUS q 12 Hinsulin lispro injection (rapid acting) (HumaLOG) SUBCUTANEOUS w MEALSAND HSheparin 5,000 Units injection 5,000 Units SUBCUTANEOUS q 8 Hphenol 1 [place] (CHLORASEPTIC) 1 [place] MUCOUS MEMBRANE (TOPICAL MOUTH ANDTHROAT) q 2 H PRN0.9% NaCl 10 mL 10 mL INTRAVENOUS q 12 H0.9% NaCl 20 mL 20 mL INTRAVENOUS PRNacetaminophen 650 mg tab(s) (TYLENOL) 650 mg ORAL q 6 H PRNoxyCODONE IR 5 mg tab(s) (ROXICODONE) 5 mg ORAL q 4 H PRNiv contrast (radiology procedure) INTRAVENOUS DIRECTED PRNnitroglycerin sublingual 0.4 mg tab(s) (NITROQUICK) 0.4 mg SUBLINGUAL q 5MIN PRNdextrose 40 % 15 g (INSTA-GLUCOSE) 15 g ORAL PRNglucagon 1 mg injection (GLUCAGEN) 1 mg INTRAMUSCULAR PRNdextrose 50% in water 25 mL syringe 12.5 g INTRAVENOUS PRNaspirin, enteric coated 162 mg tab(s) (ASPIRIN, ENTERIC COATED) 162 mgORAL DAILYHYDROmorphone 0.2 mg injection (DILAUDID) 0.2 mg INTRAVENOUS q 2 H PRNBP 106/66 Pulse 68 Temp 37.3 ?C (99.1 ?F) (Oral) Resp 16 Ht 172.7cm (5' 8 ) Wt 87.1 kg (192 lb) SpO2 97% BMI 29.19 kg/p2Znnqvv/Output Summary (Last 24 hours) at 08/29/17 0737Last data filed at 08/29/17 0708 Gross per 24 hourIntake 2206 mlOutput 5475 mlNet -3269 mlGeneral Appearance: NADAbdomen: soft, non-tender, no distention. PTHC with bilious drainage, IRdrain with scant clear drainage.Akbar Lassiter MDGENERAL SURGERY PGY-47:37 AM08/29/2017*A review of daily goals, interventions, and plan of care with themultidisciplinary team and patient has been conducted. The patient?sconcerns have been addressed and he/she agrees to proceed with today?splan of care.STAFF NOTEI have independently seen and examined the patient today. I haveindependently reviewed all the imaging and the labs. I agree with keycomponents of the resident's note above. Care plan and decision making hasbeen discussed.Doing well.Will cap PTC.Michael Jolley MD, MPH, FACSGeneral/Trauma/HPB SurgeryPager: [phone] Cell: [phone] 2017 Normal [facility] Phosphoruson 08-29-2017 Phosphate 2.6 mg/dL Normal 2.5-4.5 [facility] Comment on above: Performed By: #### P T, PTT, AMYL, CMP, LIPA, PHOS ####[phone]#### TRANSF ####[facility] [place], [place] [phone] Basic Metabolic Panlon 08-28 Anion gap 10 mmol/L Normal 03-16 [facility] Comment on above: Performed By: #### P T, PTT, AMYL, CMP, LIPA, PHOS ####[address] [phone]#### TRANSF ####[facility] [place] [phone] Calcium 8.8 mg/dL Normal 8.5-10.5 [facility] Comment on above: Performed By: #### P T, PTT, AMYL, CMP, LIPA, PHOS ####[place] [address]#### TRANSF ####[place] [address] Chloride 102 mmol/L Normal 98-110 [facility] Comment on above: Performed By: #### P T, PTT, AMYL, CMP, LIPA, PHOS ####[place] [address]#### TRANSF ####[place] [phone] CO2 26 mmol/L Normal 23-32 [facility] Comment on above: Performed By: #### P T, PTT, AMYL, CMP, LIPA, PHOS ####[place] [address]#### TRANSF ####[place] [address] Creatinine 0.71 mg/dL Normal 0.70-1.40 [facility] Comment on above: Performed By: #### P T, PTT, AMYL, CMP, LIPA, PHOS ####[place] [address]#### TRANSF ####[place] [phone] eGFR (non-black) mL/min/{1.73_m2} Normal >60 [facility] Comment on above: Performed By: #### P T, PTT, AMYL, CMP, LIPA, PHOS ####[place] [address]#### TRANSF ####[address] [place] [phone] Glucose mass conc 138 mg/dL High 65-100 [facility] Comment on above: Performed By: #### P T, PTT, AMYL, CMP, LIPA, PHOS ####[place] [address]#### TRANSF ####[place] [phone] Potassium molar conc 4.5 mmol/L Normal 3.5-5.0 [facility] Comment on above: Performed By: #### P T, PTT, AMYL, CMP, LIPA, PHOS ####[place] [address]#### TRANSF ####[place] [phone] Sodium 138 mmol/L Normal 135-146 [facility] Comment on above: Performed By: #### P T, PTT, AMYL, CMP, LIPA, PHOS ####[place] [address]#### TRANSF ####[place] [phone] Urea nitrogen 9 mg/dL Low 10-25 [facility] Comment on above: Performed By: #### P T, PTT, AMYL, CMP, LIPA, PHOS ####[place] [address]#### TRANSF ####[phone] CASE MANAGEMon 08-28-2017 CASE MANAGEM HNO ID: [id number] thor: Alexandrea KenRnLyric Tomas, RNService: Care ManagementAuthor Type: Registered NurseType: Care Mgt Progress NoteFiled: 08/28/2017 2:51 PMNote Text:CARE MANAGEMENT PROGRESS NOTESERVICE DATE: 08/28/2017SERVICE TIME: 2:48 PM LOS: 15 daysNeeds Prior to Discharge: To Be Determined Medical Clearance needed.GI Soft Diet.Pt Remains with int and ext bliliary drain.Plan is for SNF vs C when medically cleared,per [facility] notification is needed (not precert)CM remains available to assist with skilled dc needs.SIGNATURE: Alexandrea Tomas RN PATIENT NAME: Rocio JacksonDATE: August 28, 2017 : 2:47 PM PAGER/CONTACT #: [phone] Normal [facility] CBC and Differentialon 08-28 Abs Baso <0.03 Normal <0.11 [facility] Comment on above: Performed By: #### P T, PTT, AMYL, CMP, LIPA, PHOS ####[place] [address]#### TRANSF ####[place] [address] [place] [phone] Abs [place] 0.43 k/uL Normal <0.87 [facility] Comment on above: Performed By: #### P T, PTT, AMYL, CMP, LIPA, PHOS ####[place] [address]#### TRANSF ####[place] [phone] Abs Neut 3.60 k/uL Normal 1.45-7.50 [facility] Comment on above: Performed By: #### P T, PTT, AMYL, CMP, LIPA, PHOS ####[place] [address]#### TRANSF ####[place] [address] Basophils/100 WBC Auto (Bld) 0.3 % Normal [facility] Comment on above: Performed By: #### P T, PTT, AMYL, CMP, LIPA, PHOS ####[place] [address]#### TRANSF ####[place] [phone] DTYPE Auto Diff Normal [facility] Comment on above: Performed By: #### P T, PTT, AMYL, CMP, LIPA, PHOS ####[place] [address]#### TRANSF ####[place] [phone] Eosinophils 0.17 10*3/uL Normal <0.46 [facility] Comment on above: Performed By: #### P T, PTT, AMYL, CMP, LIPA, PHOS ####[place] [address]#### TRANSF ####[place] [phone] Eosinophils/100 leukocytes 3.0 % Normal [facility] Comment on above: Performed By: #### P T, PTT, AMYL, CMP, LIPA, PHOS ####[place] [address]#### TRANSF ####[place] [phone] Erythrocyte distribution width Auto Ratio (RBC) 15.5 % High 11.5-15.0 [facility] Comment on above: Performed By: #### P T, PTT, AMYL, CMP, LIPA, PHOS ####[place] [address]#### TRANSF ####[place] [phone] Erythrocytes (RBC) 3.08 10*6/uL Low 4.20-6.00 [facility] Comment on above: Performed By: #### P T, PTT, AMYL, CMP, LIPA, PHOS ####[place] [phone]#### TRANSF ####[place] [phone] Hematocrit (HCT) 26.4 % Low 39.0-51.0 [facility] Comment on above: Performed By: #### P T, PTT, AMYL, CMP, LIPA, PHOS ####[place] [address]#### TRANSF ####[place] [phone] Hemoglobin mass conc (Bld) 8.4 g/dL Low 13.0-17.0 [facility] Comment on above: Performed By: #### P T, PTT, AMYL, CMP, LIPA, PHOS ####[place] [address]#### TRANSF ####[place] [phone] Lymphocytes 1.50 10*3/uL Normal 1.00-4.00 [facility] Comment on above: Performed By: #### P T, PTT, AMYL, CMP, LIPA, PHOS ####[place] [address]#### TRANSF ####[place] [address]494[address] Lymphocytes/100 leukocytes 26.2 % Normal [facility] Comment on above: Performed By: #### P T, PTT, AMYL, CMP, LIPA, PHOS ####[place] [address]#### TRANSF ####[place] [address]494[address] MCH 27.3 pG Normal 26.0-34.0 [facility] Comment on above: Performed By: #### P T, PTT, AMYL, CMP, LIPA, PHOS ####[place] [address]#### TRANSF ####[place] [address]494[address] MCHC mass conc (RBC) 31.8 g/dL Normal 30.5-36.0 [facility] Comment on above: Performed By: #### P T, PTT, AMYL, CMP, LIPA, PHOS ####[place] [address]#### TRANSF ####[place] [address]494[address] MCV 85.7 fL Normal 80.0-100.0 [facility] Comment on above: Performed By: #### P T, PTT, AMYL, CMP, LIPA, PHOS ####[place] [address]#### TRANSF ####[place] [address]494[address] Monocytes/100 leukocytes 7.5 % Normal [facility] Comment on above: Performed By: #### P T, PTT, AMYL, CMP, LIPA, PHOS ####[place] [address]#### TRANSF ####[place] [address]494[address] Neutrophils/100 WBC Auto (Bld) 63.0 % Normal [facility] Comment on above: Performed By: #### P T, PTT, AMYL, CMP, LIPA, PHOS ####[place] [address]#### TRANSF ####[place] [phone] Platelet mean volume (PMV) 9.7 fL Normal 9.0-12.7 [facility] Comment on above: Performed By: #### P T, PTT, AMYL, CMP, LIPA, PHOS ####[place] [address]#### TRANSF ####[place] [phone] Platelets 518 10*3/uL High 150-400 [facility] Comment on above: Performed By: #### P T, PTT, AMYL, CMP, LIPA, PHOS ####[place] [address]#### TRANSF ####[place] [phone] WBC (Leukocytes) 5.72 10*3/uL Normal 3.70-11.00 [facility] Comment on above: Performed By: #### P T, PTT, AMYL, CMP, LIPA, PHOS ####[place] [address]#### TRANSF ####[place] [phone] Magnesiumon 08-28-2017 Magnesium 2.2 mg/dL Normal 1.7-2.6 [facility] Comment on above: Performed By: #### P T, PTT, AMYL, CMP, LIPA, PHOS ####[place] [address]#### TRANSF ####[place] [phone] NURSING PROGon 08-28-2017 NURSING PROG HNO ID: [id number] thor: Pramod (Rn) MOUSTAPHA Mckennaervice: (none)Author Type: Registered NurseType: Nursing Progress NoteFiled: 08/28/2017 5:07 PMNote Text: Nursing Progress NotePatient Name: Rocio JacksonN: [id number] Location: [place] [address]/[id number] ____Daily Note: 08/28/17 0840 (late entry)- Patient is sitting up in the chair,his sister is at bedside. Patient is alert and oriented times three,depressed, is speaking softly. Vitals are stable, oxygen saturation isadequate on room air. PICC in right arm flushes well with good bloodreturn, fluids running per orders. Hand grasps and push/pulls are equalbilaterally, generalized weakness noted, pulses are palpable with goodmovement and sensation. Patient denies any numbness or tingling. Noedema noted. Lungs are clear but diminished throughout. Abdomen is soft,round and active in all quadrants, patient denies any nausea or vomitingand is tolerating a full liquid diet. SAIMA Galeas, is placingorders to advance patient to a GI soft diet. Dressings to drains on theright side of the abdomen are clean, dry and intact. Accordian drain isdraining scant amount of serosang drainage and the biliary drain isdraining bile/brown drainage. Patient is normal sinus rhythm ontelemetry. PAS being worn bilaterally. Glucose is being monitored withmeals. Call light and belongings are within reach.08/28/17 0930 (late entry)- Dr. oJlley rounded on patient this morning anddiscussed patient's current status and possible plan of care. Patient'ssister came to get ice for the patient, she is very upset with the newinformation regarding her brother, provided support.08/28/17 1500 (late entry)- Patient is sitting up in the chair, his sisterremains at bedside. Patient was able to sleep for approximately one hourin the bed and then got back to the chair. Continues to deny any pain.Patient has been tolerating a GI soft diet, denies any nausea or vomiting. Call light and belongings are within reach.This note was completed by: Pramod Mckenna RN [facility] PROGRESSon 08-28-2017 PROGRESS HNO ID: [id number] thor: Michael Cedillo) AugustinService: General SurgeryAuthor Type: PhysicianType: Progress NotesFiled: 08/28/2017 11:12 AMNote Text:PROGRESS NOTES - SURGICAL SERVICESPATIENT NAME: Rocio Boudreaux: [id number] HISTORY OF PRESENT ILLNESS:No acute events overnight. Pain well controlled. No nausea or vomiting.Tolerating diet. Passing flatus, had a BM.PHYSICAL EXAM:BP 104/60 Pulse 71 Temp 37.1 ?C (98.8 ?F) (Oral) Resp 16 Ht 172.7cm (5' 8 ) Wt 87.1 kg (192 lb) SpO2 97% BMI 29.19 kg/m2Body mass index is 29.19 kg/(m2).GENERAL: Alert and oriented, no acute distress, cooperative.CARDIAC: regular rate and rythmLUNGS: Non labored breathingABDOMEN: soft, non tender, non distended. PTHC to gravity (billious, 1.0L)and other drain (serous)CBC, Coags, BMP, Mg, PhosRecent Labs 08/28/1803WBC 5.72 5.15 6.83HB 8.4* 8.0* 8.3*HCT 26.4* 25.1* 26.0*PLT 518* 481* 481*NA 138 138 138K 4.5 4.4 4.5CHLOR 102 102 101CO2 26 27 26BUN 9* 11 11CREAT 0.71 0.66* 0.58*GLUC 138* 105* 124*CA 8.8 8.5 8.7MG 2.2 2.2 2.3P 3.4 4.0 3.4Liver Function, Amylase, AND LipaseIntake/Output Summary (Last 24 hours) at 08/28/17 0752Last data filed at 08/28/17 0735 Gross per 24 hourIntake 2606 mlOutput 3825 mlNet -1219 mlSURGERY/PROCEDURE:Procedur e(s) and Anesthesia Type: * ANESTHESIA FOR NON-INVASIVE IMAGING OR RADIATION THERAPY - Choice -Anesthesia ConsultASSESSMENT AND PLAN:This is a 62 year old male s/p PTHC placement on 08/19, external andinternal biliary drain placement. Cholangiogram was performed and showed Previously seen biliary leak into the midline biloma drain is no longerseen; the ligated/clipped the cystic duct remains occluded; CBD is intact;bilateral biliary tree opacification is seen:?- Diet: FLD- GI: Zofran for nausea- Resp: BPH, IS- CVS/Heme: Heme stable- Renal: Strict I/Os- Neuro: Cognitive intact, alert oriented x 3- Activity: OOB, ambulate as able- Pain control: Continue current regimen - IV dilaudid ?PO tylenol- Pending results: None- Prophylaxis: DVT prophylaxis, SCDs- Resume home meds- Dispo:DC to Home w home PT or SNF (will touch base with CM)?SIGNATURE: Kayleen Montanojanelderrick MDDATE: August 28, 2017TIME: 7:52 DARRELTANNEKA ALEGREI have independently seen and examined the patient today. I haveindependently reviewed all the imaging and the labs. I agree with keycomponents of the resident's note above. Care plan and decision making hasbeen discussed.Continued High output from PTCJP nonbiliousAdvancing his diet to a low residue dietDC planningToms Froilan MD, MPH, FACSGeneral/Trauma/HPB SurgeryPager: [phone] Cell: [phone] 2017 [facility] PT EDon 08-28-2017 PT ED HNO ID: [id number] thor: Yohana (Diet-T) MarichuyanService: Nutrition TherapyAuthor Type: Dietetic TechnicianType: Patient EducationFiled: 08/28/2017 1:24 PMNote Text:NUTRITION PATIENT EDUCATIONTOPIC: Survival Skills: DietPATIENT NAME: Rocio JacksonMRN: [id number] DATE: August 28, 2017Diagnosis: ADULT: Duodenal ObstructionREADINESS TO LEARNMotivation to Learn: InterestedFamily Support: Unable to assess - Family not presentInstruction Provided to: PatientFactors Affecting Learning: NonePhysical Limitations Affecting Learning: NoneLEARNING RESPONSEPatient / Family Response: Verbalizes understanding of CORS/GI Soft Diet:Rationale behind diet restriction, foods allowed/to avoid, small frequentmeals, chewing thoroughly, fluid recommendations, how long to continue ondiet as well as how to transition off diet and(if applicable) dealing withpotential problems (ostomy patients only).Method of Instruction: Written instruction - handoutsVerbal instructionInstructional Aids Used: NASupplemental Material Provided to Patient: G/L for GI Soft DietRegistered Dietitian following patient, instructed by Registered Dietitianto completed GI soft diet education.Referral (Recommendation): Nutrition - OutpatientMNT Billing Type: Routine Care/15 min 2 triston aMckey-tPager: [phone] 20171:22 PM Normal [facility] Phosphoruson 08-28-2017 Phosphate 3.4 mg/dL Normal 2.5-4.5 [facility] Comment on above: Performed By: #### P T, PTT, AMYL, CMP, LIPA, PHOS ####[facility] [place] [phone]#### TRANSF ####[facility] [address] [place], [place] [phone] THERAPY NTon 08-28-2017 THERAPY NT HNO ID: [id number] thor: Saima Feliciano (Cota)pasService: Occupational TherapyAuthor Type: Occupational Therapy AssistantType: Therapy (PT/OT/Speech/Resp)Filed: 08/28/2017 3:09 PMNote Text: -Attestation signed by Nolvia Reilly at 08/28/2017 3:48 PMI reviewed and agree with the documentation corresponding to this therapyvisit.SIGNATURE: WENDY Cade/LDATE: August 28, 2017TIME: 3:48 PM Oc cupational Therapy TreatmentSERVICE DATE: 3/2/2018SERVICE TIME: 1420 to 1500ROOM: [id number] ( OPERATING ROOM)Recommended Discharge Disposition: Subacute/SNFRecommended Discharge Disposition Comments: (Pt hopes [place] therapyin SNF in [place])Anticipated Discharge Needs: Supervision at HomePhysical Assist at Home for:Cleaning;Laundry;Meals;S hopping;Transportation;Ambul ationSupervision at Home due to: Other: See Comment (recent surgery)Recommended Discharge Equipment: Elastic Shoe Laces;Grab Bars-Shower;HandHeld Shower;Long Handled Shoe Horn;Long Handled Sponge;WheeledWalker;Solid Waste Landfill Technician ;Sock Aide;Shower ChairOT Recommendations to Nursing: OOB for meals with Gait Belt;To Bathroomfor ADL?s /and or Toileting with Gait Belt;With assist of 1 personEquipment: Wheeled WalkerOT 6 Clicks Score: 18Precautions/Activity Restrictions: Lines/Tubes/Drains;Fall RiskASSESSMENT: Patient presents with decreased independence in ADLs, decreased activitytolerance, decreased balance, decreased safety awareness, abdominalprecautions , and decreased independence w functional transfers. The ptrequires skilled occupational therapy services for ADL retraining, balanceretraining and activities, education and intervention for increased safetyand independence w functional transfers, and education w energyconservation techniques in order to increase safety and independence inADLs.Tolerated Full SessionOccupational Therapy Problem List: Safety Deficits;Impaired SelfCare;Decreased Activity Tolerance;Decreased Strength;Functional MobilityImpairmentPatient /Caregiver Goals: Go HomeGoals for Plan of Care:Able to perform HEP with: Modified IndependentGrooming with: Modified IndependentUpper Body Bathing with: Modified IndependentUpper Body Dressing with: Modified IndependentLower Body Bathing with: Stand By AssistanceLower Body Dressing with: Stand By AssistanceToilet Hygiene with: Stand By AssistanceChair Transfer with: Stand By AssistanceToilet Transfer with: Stand By AssistanceTolerate (minutes of functional activity): 30Functional Activity with: Stand By AssistanceDemonstrate Competence With Education with: IndependentProgress Toward Goals: Progressing as expectedRehab Potential: GoodPLAN:Treatment Frequency (times per week): 2Treatment Duration (number): 1 WeeksTreatment Interventions: Education;Self Care / Home ManagementPlan of Care developed with: PatientTREATMENT INTERVENTIONS:Therapy Diagnosis: Reduced mobility-otherInterventions Provided: Self Group Home Management (68829);TherapeuticActivity (43749)Therapeutic Activity (76424) Treatment Minutes: 101 unitSkilled Intervention(s): Instructed patient in log roll techniqueInstruction in sit to and from stand technique with proper hand placementand body positioning at edge of bed/chairInstruction of safe transport of items from room to room with use of bagon the ww.Self Group Home Management (10759) Treatment Minutes: 302 unitsSkilled Intervention(s): Provided instruction, cuing and facilitation forlower body dressing .Instructed pt on use of supervisor yard to zee/doff pants, underwear, shoes inorder to maintain abdominal precautions and increase independence withADL's.Instructed pt on use of sock aide to zee socks in order to maintainabdominal precautions and increase independence with ADL's. Pt verbalizedunderstanding but would benefit from further review.Pt understands how LBAE can assist with maintaining abdominal precautions.This therapist suggested a seat for the shower to employ EC technique.Total Timed Code Treatment Minutes: 40Total Treatment Time (minutes): 40FUNCTIONAL G CODE:OT 6 Clicks Score: 18 (08/28/17 142)Self Care Current Status (G8987): CK (08/28/17 1420)Self Care Goal Status (G8988): CJ (08/28/17 142)Based on clinical assessment and the score on the 6 Clicks FunctionalAssessment Tool, the G code and corresponding severity modifiers aredocumented above.SUBJECTIVE:Current Hospital Course: Chart reviewed and no significant medical updatesrelevant to therapy were notedPatient Report: 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 a mother hen.Home EnvironmentPatient Lives With: Family (with daughter and son;2 floor house)Assistance Available: PRNEntry To Home: Stairs;Without RailNumber Of Stairs Into Home: 2Number Of Stairs To Bed/Bath: 0 (1st floor living)Tub/Shower Type: walk in showerLaundry: dtr does house chores.Equipment Owned: (sister has std walker and cane that pt can borrow.)Prior Functional Level: Required AssistanceAssistance Required With: Cleaning;Laundry;Meals;Shopp ingPrior Functional Level Comments: pt drives; works;indep ambul without asstdevice.OBJECTIVE:Respons iveness: Awake;AlertFollows Commands: 3-step CommandsVision Deficits: Wears glasses;Other: See Comment (at all times)CURRENT FUNCTIONAL STATUS:Current Activities of Daily Living Assist LevelFeeding Modified IndependentGrooming Stand By AssistanceBathing Upper Body Stand By AssistanceBathing Lower Body Moderate AssistanceDressing Upper Body Stand By AssistanceDressing Lower Body Maximal Assistance (educated on LBAE)Toileting Maximal AssistanceInstrumental Activities of Daily Living Assist LevelMeal/Beverage PrepLight CleaningLaundryMedication Management with StrategiesFunctional Mobility Assist LevelRollingSupine to Sit Minimal AssistanceSit to SupineScooting SupervisionSit to Stand Minimal AssistanceStand to Sit Minimal AssistanceBed to Chair Minimal Assistance (Pt ambulated around the bed to chair)Wheeled WalkerToilet/CommodeFunction al Mobility Minimal Assistance (pt ambulates in room) WheeledWalkerBalance: Static Sitting;Dynamic Sitting;Static Standing;Dynamic StandingStatic Sitting Balance: SupervisionDynamic Sitting Balance: SupervisionStatic Standing Balance: Minimal AssistanceDynamic Standing Balance: Minimal AssistanceActivity Tolerance: (Pt fatigued following ambulation)Please see discipline specific clinical documentation flowsheet forcomplete details for this therapy evaluation/treatment.SIGNATU RE: Saima TRACY Spencer PATIENT NAME: Rociomarisa JacksonDATE: August 28, 2017 : 3:04 PM PAGER: [phone] [facility] THERAPY NT HNO ID: [id number] thor: Saima Allen) BradenpasService: Occupational TherapyAuthor Type: Occupational Therapy AssistantType: Therapy (PT/OT/Speech/Resp)Filed: 08/28/2017 12:27 PMNote Text: -Attestation signed by Nolvia Reilly at 08/28/2017 1:15 PMI reviewed and agree with the documentation corresponding to this therapyvisit.SIGNATURE: WENDY Cade/LDATE: August 28, 2017TIME: 1:15 PM OC CUPATIONAL THERAPY MISSED VISITSERVICE DATE: 08/28/2017SERVICE TIME: 1148 to 1148ROOM: [place] [address] ( OPERATING ROOM)Attempted Treatment. Patient not seen due to Eating.Will attempt again asschedule permits.SIGNATURE: TRACY Dumont PATIENT NAME: Rocio VizcarraTE: August 28, 2017 : 12:27 PM PAGER/CONTACT #:[phone] [facility] BRIEF OP NOTon 08-27-2017 BRIEF OP NOT HNO ID: [id number] thor: Juan AgueroService: RadiologyAuthor Type: PhysicianType: Brief Op NoteFiled: 08/27/2017 11:09 AMNote Text:OPERATIVE/PROCEDURE REPORTLOG ID: [id number]/Procedure Date: 08/19/2017Incision/Procedure Start Time:Incision Close/Procedure End Time:Surgeon(s)/Proceduralis t(s) and Principal Embedded Software Engineer(s):Surgeon(s) and Role: * Vanessa Finley Additional StaffProcedure(s):Patient has a right internal/external biliary drain and a midline bilomadrain.Cholangiogram was performed via right biliary tree access: Previously seenbiliary leak into the midline biloma drain is no longer seen; theligated/clipped the cystic duct remains occluded; CBD is intact; bilateralbiliary tree opacification is seen. Mild stenosis is seen in D2 at theampulla D3 is widely patent without any significant stenosis. The 10Fbiliary drain was exchanged for a 12F internal/external drain with pigtailnow positioned in D3. Please maintain this tube to external bag untilthere is no further bilious output from the midline biloma drain.Midline biloma drain was assessed - injection of contrast demonstrated asmall residual cavity and streaks of contrast extending towards the CBDbut no direct communication with biliary tree is seen. This drain ispatent and in good position and hence was not changed. Please maintainthis tube to external bag.Anesthesia: Choice - Anesthesia ConsultProcedure Details: see abobvePre-Op/Pre-Procedure Diagnosis: bile leak, highputPost-Op/Post-Procedur e Diagnosis: * No post-op diagnosis entered *sameEstimated Blood Loss: 0 mlSpecimens: NoneImplantable Devices: NoneDrains: see aboveComplications: NoneThe primary surgeon/proceduralist performed the procedure with assistance.SIGNATURE: Juan Aguero MD PATIENT NAME: Rocio VizcarraTE: August 27, 2017 : 11:02 AM PAGER/CONTACT #: [phone] Normal [facility] Basic Metabolic Panlon 08-27 Anion gap 9 mmol/L Normal 9-18 [facility] Comment on above: Performed By: #### P T, PTT, AMYL, CMP, LIPA, PHOS ####[place] [address]#### TRANSF ####[place] [address] [place] [phone] Calcium 8.5 mg/dL Normal 8.5-10.5 [facility] Comment on above: Performed By: #### P T, PTT, AMYL, CMP, LIPA, PHOS ####[place] [address]#### TRANSF ####[facility] [address] AveCBradley [place] [phone] Chloride 102 mmol/L Normal 98-110 [facility] Comment on above: Performed By: #### P T, PTT, AMYL, CMP, LIPA, PHOS ####[place] [address]#### TRANSF ####[place] [address] [address] [phone] CO2 27 mmol/L Normal 23-32 [facility] Comment on above: Performed By: #### P T, PTT, AMYL, CMP, LIPA, PHOS ####[address]#### TRANSF ####[phone] Creatinine 0.66 mg/dL Low 0.70-1.40 [facility] Comment on above: Performed By: #### P T, PTT, AMYL, CMP, LIPA, PHOS ####[address]#### TRANSF ####[place] [address]494-5[address] eGFR (non-black) mL/min/{1.73_m2} Normal >60 [facility] Comment on above: Performed By: #### P T, PTT, AMYL, CMP, LIPA, PHOS ####[place] [address]#### TRANSF ####[place] [address]5755 Glucose mass conc 105 mg/dL High 65-100 [facility] Comment on above: Performed By: #### P T, PTT, AMYL, CMP, LIPA, PHOS ####[place] [address]#### TRANSF ####[place] [address]494[address]5755 Potassium molar conc 4.4 mmol/L Normal 3.5-5.0 [facility] Comment on above: Performed By: #### P T, PTT, AMYL, CMP, LIPA, PHOS ####[place] [address]#### TRANSF ####[place] [address] Sodium 138 mmol/L Normal 135-146 [facility] Comment on above: Performed By: #### P T, PTT, AMYL, CMP, LIPA, PHOS ####[place] 652926[address]#### TRANSF ####[place] [address] [place], [place] [phone] Urea nitrogen 11 mg/dL Normal 10-25 [facility] Comment on above: Performed By: #### P T, PTT, AMYL, CMP, LIPA, PHOS ####[place] 652926[address]#### TRANSF ####[place] [address] CASE MANAGEMon 08-27-2017 CASE MANAGEM HNO ID: [id number] thor: Catherine KenRn) Leeann, RNService: Case ManagementAuthor Type: Registered NurseType: Care Mgt Progress NoteFiled: 08/27/2017 4:26 PMNote Text:CARE MANAGEMENT PROGRESS NOTESERVICE DATE: 08/27/2017SERVICE TIME: 4:15 pm LOS: 14 daysMet with patient and sister Briana at bedside. Due to patient's currentclinical status, and the fact that he is single and lives alone, thepatient has elected to pursue placement at [facility] in [facility]. Updates sent to [facility]. CM will continue to followplan of care to assist with discharge planning.SIGNATURE: Catherine Bradshaw RN PATIENT NAME: Rocio VizcarraTE: August 27, 2017 : 4:18 PM PAGER/CONTACT #: [phone] Normal [facility] CBC and Differentialon 08-27 Abs Baso 0.03 k/uL Normal <0.11 [facility] Comment on above: Performed By: #### P T, PTT, AMYL, CMP, LIPA, PHOS ####[place] [phone]#### TRANSF ####[place] [address] [place] [phone] Abs [place] 0.29 k/uL Normal <0.87 [facility] Comment on above: Performed By: #### P T, PTT, AMYL, CMP, LIPA, PHOS ####[place] [address]#### TRANSF ####[place] [address] Abs Neut 3.08 k/uL Normal 1.45-7.50 [facility] Comment on above: Performed By: #### P T, PTT, AMYL, CMP, LIPA, PHOS ####[place] [address]#### TRANSF ####[place] [address] Basophils/100 WBC Auto (Bld) 0.6 % Normal [facility] Comment on above: Performed By: #### P T, PTT, AMYL, CMP, LIPA, PHOS ####[place] [address]#### TRANSF ####[place] [address]494[address]5755 DTYPE Auto Diff Normal [facility] Comment on above: Performed By: #### P T, PTT, AMYL, CMP, LIPA, PHOS ####[place] [address]#### TRANSF ####[place] [address] Eosinophils 0.19 10*3/uL Normal <0.46 [facility] Comment on above: Performed By: #### P T, PTT, AMYL, CMP, LIPA, PHOS ####[place] [address]#### TRANSF ####[place] [phone] Eosinophils/100 leukocytes 3.7 % Normal [facility] Comment on above: Performed By: #### P T, PTT, AMYL, CMP, LIPA, PHOS ####[place] [address]#### TRANSF ####[place] [address] Erythrocyte distribution width Auto Ratio (RBC) 15.6 % High 11.5-15.0 [facility] Comment on above: Performed By: #### P T, PTT, AMYL, CMP, LIPA, PHOS ####[place] [address]#### TRANSF ####[place] [address] Erythrocytes (RBC) 2.90 10*6/uL Low 4.20-6.00 [facility] Comment on above: Performed By: #### P T, PTT, AMYL, CMP, LIPA, PHOS ####[place] [address]#### TRANSF ####[place] [address] Hematocrit (HCT) 25.1 % Low 39.0-51.0 [facility] Comment on above: Performed By: #### P T, PTT, AMYL, CMP, LIPA, PHOS ####[place] [address]#### TRANSF ####[place] [address] Hemoglobin mass conc (Bld) 8.0 g/dL Low 13.0-17.0 [facility] Comment on above: Performed By: #### P T, PTT, AMYL, CMP, LIPA, PHOS ####[place] [address]#### TRANSF ####[place] [phone] Lymphocytes 1.56 10*3/uL Normal 1.00-4.00 [facility] Comment on above: Performed By: #### P T, PTT, AMYL, CMP, LIPA, PHOS ####[address]#### TRANSF ####[place] [address] Lymphocytes/100 leukocytes 30.3 % Normal [facility] Comment on above: Performed By: #### P T, PTT, AMYL, CMP, LIPA, PHOS ####[address]#### TRANSF ####[place] [address] MCH 27.6 pG Normal 26.0-34.0 [facility] Comment on above: Performed By: #### P T, PTT, AMYL, CMP, LIPA, PHOS ####[place] [address]#### TRANSF ####[place] [address] MCHC mass conc (RBC) 31.9 g/dL Normal 30.5-36.0 [facility] Comment on above: Performed By: #### P T, PTT, AMYL, CMP, LIPA, PHOS ####[place] [address]#### TRANSF ####[place] [address]494[address] MCV 86.6 fL Normal 80.0-100.0 [facility] Comment on above: Performed By: #### P T, PTT, AMYL, CMP, LIPA, PHOS ####[place] [address]#### TRANSF ####[address] [phone] Monocytes/100 leukocytes 5.6 % Normal [facility] Comment on above: Performed By: #### P T, PTT, AMYL, CMP, LIPA, PHOS ####[place] [address]#### TRANSF ####[address] [place] [phone] Neutrophils/100 WBC Auto (Bld) 59.8 % Normal [facility] Comment on above: Performed By: #### P T, PTT, AMYL, CMP, LIPA, PHOS ####[place] [address]#### TRANSF ####[place] [address] Platelet mean volume (PMV) 9.2 fL Normal 9.0-12.7 [facility] Comment on above: Performed By: #### P T, PTT, AMYL, CMP, LIPA, PHOS ####[place] [address]#### TRANSF ####[place] [phone] Platelets 481 10*3/uL High 150-400 [facility] Comment on above: Performed By: #### P T, PTT, AMYL, CMP, LIPA, PHOS ####[address]#### TRANSF ####[place] [phone] WBC (Leukocytes) 5.15 10*3/uL Normal 3.70-11.00 [facility] Comment on above: Performed By: #### P T, PTT, AMYL, CMP, LIPA, PHOS ####[address]C[place], [place] [phone]#### TRANSF ####[facility] [address] [place], [place] [phone] IR EXCHANGE CATH BILI DRAINo n 08-27-2017 IR EXCHANGE CATH BILI DRAIN * * *Final Report* * *DATE OF EXAM: Aug 27 2017 10:45AM [facility] [id number] - IR EXCHANGE CATH BILI DRAIN / REASON: post PTHC placement * * * * Physician Interpretation * * * * PROCEDURE: CHOLANGIOGRAM AND EXCHANGE/UPSIZING OF RIGHT INTERNAL/EXTERNAL BILIARY DRAIN; TUBE INJECTION STUDY OF MIDLINE BILOMA DRAINHISTORY: Patient with duodenal mass and obstructing jaundice had undergone lap richelle recently at an outside hospital complicated by biloma. Had a midline percutaneous drain placed into the biloma on 08/15 and had a right internal/external biliary drain placed on 08/19. Jaundice has resolved. Endoscopy demonstrated duodenal stricture. Biloma output has significantly reduced and a repeat CT 08/24 demonstrated significant reduction in the size of biloma. Recently, the output from the internal/external biliary drain has increased. Clinically, patient is able to tolerate fluid feeds orally but not solids.CONSENT: Risks, benefits, treatment options, potential complications and personnel to be involved were discussed (including the risks of radiation exposure, contrast and anesthesia administration, and any equipment needed for the procedure to ensure best possible outcome) with the patient and all questions were answered and consent was obtained prior to procedure.MEDICATION RECONCILIATION: The patient's medications and allergies were reviewed in the electronic medical record and reconciled to the proposed procedure/treatment.MADHU-PRO CEDURE DISCUSSION: The appropriate elements of the pre-procedure discussion, safety check list and sign-out were performed.TIME OUT: A time out was performed immediately prior to procedure start with the nursing, and interventional team, correctly identifying the name, date of , procedure, anatomy (including marking of site and side if applicable), patient position, procedure consent form, relevant diagnostic and radiology test results, antibiotic administration if applicable, safety precautions, and procedure-specific equipment needs.Start of procedure: 1000End of procedure: 1045Patient position: SupineAnesthesia: After establishing pulse oximetry, BP and EKG monitoring by the Radiology nurse, moderate sedation with Versed and Fentanyl was administered.Intra-service time (monitoring for moderate sedation): 56 minutesPatient monitoring: I personally supervised and directed an independent trained observer who assisted in monitoring the patient?s level of consciousness and physiological status throughout the procedure.Local anesthesia: 2 % lidocaineANTIBIOTICS: ZosynAntibiotic infusion start time: 944CONTRAST DOSE: 50 cc of OMNIPAQUE 350 was injected into the biliary system during the procedure.IMAGE GUIDANCE: Fluoroscopic guidance.FLUOROSCOPIC RADIATION SUMMARY:Plane A, Air Kerma: 2083.0 mGyDose Area Product (DAP): 528682.0 mGy*eb0Poazlh Time: 14:00 min:secRadiation dose exceed 5 Gy: NoIf radiation dose exceeded 5 Gy, was counseling and instructional brochure provided: N/ATECHNIQUE: The patient was prepped and draped using all elements of maximal sterile barrier technique (cap, mask, sterile gown, sterile gloves, a large sterile sheet, hand hygiene and cutaneous antisepsis)After local anesthesia, the indwelling 10 Burkinan right internal/external drain was removed over a wire and a long sheath was placed. Cholangiogram was performed. Using a KMP catheter and Glidewire, access was obtained into the first part of the duodenum and then into the third part of the duodenum and contrast injection was performed to assess for duodenal stricture. Over an Amplatz wire, a 12 Burkinan right internal/external drain was placed with the pigtail formed in the third part of the duodenum. The catheter was secured to the skin with 0 Prolene suture and connected to a bag for external drainage.Contrast was injected into the midline biloma drainage catheter. There was no securing suture. Hence a 2-0 Prolene was used to secure this catheter to the skin and this was connected to a external drainage bag with the billows was compressed.RESULT:Cholangiog shanon was performed via right biliary tree access: Previously seen biliary leak into the midline biloma drain is no longer seen; the ligated/clipped the cystic duct remains occluded; CBD is intact; bilateral biliary tree opacification is seen. Mild stenosis is seen in D2 at the ampulla. D1 and D3 is widely patent without any significant stenosis. The 10F biliary drain was exchanged for a 12F internal/external drain with pigtail now positioned in D3.LATERALITY: Right Biliary treeINDWELLING DEVICE: 12 F Cook (14 cm long side holes segment) internal external biliary drainage catheter with cope with in the third part of the duodenumMidline biloma drain was assessed - injection of contrast demonstrated a small residual cavity and streaks of contrast extending towards the CBD but no direct communication with biliary tree is seen. This drain is patent and in good position and hence was not changed.The patient tolerated the procedure well. There were no significant complications and no other complications during the procedure.CONCLUSION: The patient was comfortable and was transferred to the recovery room in stable condition.Estimated Blood Loss: MinimalNumber and Type of Removed Specimens: noneATTENDING RADIOLOGIST: Juan Aguero M.D.BELT BACK OPERATOR: NoneThe procedure was performed by the: attending radiologist, without an multimedia assistant.The attending radiologist performed the following procedural activities: Entire procedureIMPRESSION:Patient has a right internal/external biliary drain and a midline biloma drain.?Cholangiogram was performed via right biliary tree access: Previously seen biliary leak into the midline biloma drain is no longer seen; the ligated/clipped the cystic duct remains occluded; CBD is intact; bilateral biliary tree opacification is seen. Mild stenosis is seen in D2 at the ampulla, D1 and D3 are widely patent without any significant stenosis. The 10F biliary drain was exchanged for a 12F internal/external drain with pigtail now positioned in D3. Please maintain this tube to external bag until there is no further bilious output from the midline biloma drain.?Midline biloma drain was assessed - injection of contrast demonstrated a small residual cavity and streaks of contrast extending towards the CBD but no direct communication with biliary tree is seen. This drain is patent and in good position and hence was not changed. Please maintain this tube to external bag.Ergonomic Specialist: NII Transcribe Date/Time: Aug 27 2017 2:25PDictated by : JUAN AGUERO MDThis examination was interpreted and the report reviewed and electronically signed by: JUAN AGUERO MD on Aug 27 2017 4:27PM EST Normal [facility] Magnesiumon 08-27-2017 Magnesium 2.2 mg/dL Normal 1.7-2.6 [facility] Comment on above: Performed By: #### P T, PTT, AMYL, CMP, LIPA, PHOS ####[facility] [place], [place] [phone]#### TRANSF ####[facility] [address] [place], [place] [phone] PROGRESSon 08-27-2017 PROGRESS HNO ID: [id number] thor: Lee Ann Thao, MDService: General SurgeryAuthor Type: ResidentType: Progress NotesFiled: 08/27/2017 8:05 AMNote Text:PROGRESS NOTES - SURGICAL SERVICESPATIENT NAME: Rocio JacksonN: [id number] HISTORY OF PRESENT ILLNESS:No acute events overnight. Pain well controlled. No nausea or vomiting.NPO for the procedure today, no fever/chillsPHYSICAL EXAM:BP 112/68 Pulse 72 Temp 37.3 ?C (99.2 ?F) (Oral) Resp 18 Ht 172.7cm (5' 8 ) Wt 87.1 kg (192 lb) SpO2 98% BMI 29.19 kg/m2Body mass index is 29.19 kg/(m2).GENERAL: Alert and oriented, no acute distress, cooperative.CARDIAC: regular rate and rythmLUNGS: Non labored breathingABDOMEN: soft, non tender, non distended. PTHC to gravity (billious, 1.3L)CBC, Coags, BMP, Mg, PhosRecent Labs 08/25/1803WBC 6.83 5.66 5.48 --HB 8.3* 8.0* 7.9* --HCT 26.0* 25.6* 25.2* --PLT 481* 444* 393 --NA 138 138 -- --K 4.5 4.5 -- --CHLOR 101 101 -- --CO2 26 26 -- --BUN 11 10 -- --CREAT 0.58* 0.62* -- --GLUC 124* 118* -- --CA 8.7 8.4* -- --MG 2.3 2.3 -- 2.3P 3.4 3.0 -- 2.6Liver Function, Amylase, AND LipaseIntake/Output Summary (Last 24 hours) at 08/27/17 0802Last data filed at 08/27/17 0754 Gross per 24 hourIntake 65 mlOutput 3751 mlNet -3686 mlSURGERY/PROCEDURE:Procedur e(s) and Anesthesia Type: * ANESTHESIA FOR NON-INVASIVE IMAGING OR RADIATION THERAPY - Choice -Anesthesia ConsultASSESSMENT AND PLAN:This is a 62 year old male s/p PTHC placement on 08/19, external andinternal biliary drain placement- XR Cholangiogram today to assess for PTHC leaks and upsize the draintoday- Diet: NPO for the procedure, will resume diet after the procedure- GI: Zofran for nausea- Resp: BPH, IS- CVS/Heme: Heme stable- Renal: Strict I/Os- Neuro: Cognitive intact, alert oriented x 3- ID: Augmentin- Activity: OOB, ambulate as able- Pain control: Continue current regimen - IV dilaudid PO tylenol- Pending results: None- Prophylaxis: DVT prophylaxis, SCDs- Resume home meds- Dispo: Home with C pending cholangiogramTo be discussed with Carolina Thao MD8:02 AM August 27, 2017PAGER: [phone] [facility] PT EDon 08-27-2017 PT ED HNO ID: [id number] thor: Lee Ann (Rn) MOUSTAPHA Drakeervice: RadiologyAuthor Type: Registered NurseType: Patient EducationFiled: 08/27/2017 10:43 AMNote Text:PATIENT EDUCATION TOPIC: PROCEDURE / SURGERY: Procedure/Surgery:cholangiog shanon and biliary tube exchange 12frPATIENT NAME: Rocio Boudreaux: [id number] LOCATION: [place] [address]READINES S TO LEARNCOGNITIVE ABILITY: Alert and orientedMOTIVATION TO LEARN: EagerFAMILY SUPPORT: Unable to assess - Family not presentINSTRUCTION PROVIDED TO: PatientPATIENT LEARNS BEST BY: Individual InstructionWritten Instruction - Hand-outsVerbal InstructionFACTORS AFFECTING LEARNING: NonePHYSICAL LIMITATIONS AFFECTING LEARNING: NoneLEARNING RESPONSEDIAGNOSIS: ADULT: cholecyPATIENT/FAMILY RESPONSE: Verbalizes understanding of: CATHETERCARE-Correct procedure to perform catheter careMETHOD OF INSTRUCTION: Individual instructionWritten instruction - handoutsVerbal instructionFOLLOW-UP PLAN: Complete - No need for follow-upINSTRUCTIONAL AIDS USED: NASUPPLEMENTAL MATERIAL PROVIDED TO PATIENT: NoneREFERRAL (RECOMMENDATION): NoneElectronically Signed By: Lee Ann Drake RN [facility] Phosphoruson 08-27-2017 Phosphate 4.0 mg/dL Normal 2.5-4.5 [facility] Comment on above: Performed By: #### P T, PTT, AMYL, CMP, LIPA, PHOS ####[facility] [place], [place] [phone]#### TRANSF ####[facility] [address] [place], [place] [phone] THERAPY NTon 08-27-2017 THERAPY NT HNO ID: [id number] thor: Mandi Bowmanervice: Occupational TherapyAuthor Type: Occupational TherapistType: Therapy (PT/OT/Speech/Resp)Filed: 08/27/2017 3:16 PMNote Text:OCCUPATIONAL THERAPY MISSED VISITSERVICE DATE: 08/27/2017SERVICE TIME: 1500 to 1500ROOM: [place] [address] ( OPERATING ROOM)Attempted Treatment. Patient not seen due to Other: See Comment(Cholangiogram Today).SIGNATURE: WENDY Arceo/Timo PATIENT NAME: Rocio Sibley: August 27, 2017 : 3:16 PM PAGER/CONTACT #:[phone] [facility] THERAPY NT HNO ID: [id number] thor: Adela Lopezvice: Physical TherapyAuthor Type: Physical Therapy AssistantType: Therapy (PT/OT/Speech/Resp)Filed: 08/27/2017 11:44 AMNote Text: -Attestation signed by Gonzales Vaca at 08/27/2017 11:44 AMI reviewed and agree with the assessment as documented above.SIGNATURE: Gonzales aVca, PTDATE: August 27, 2017TIME: 11:44 AM PH YSICAL THERAPY MISSED VISITSERVICE DATE: 08/27/2017SERVICE TIME: 1110 to 1110ROOM: [place] [address] ( OPERATING ROOM)Attempted Treatment. Patient not seen due to Test/Procedure ( pt havingcholangiogram this a.m.).SIGNATURE: Adela Leong PTA PATIENT NAME: Rocio VizcarraTE: August 27, 2017 : 11:44 AM PAGER/CONTACT #: [phone] [facility] Basic Metabolic Panlon 08-26 Anion gap 11 mmol/L Normal 9-18 [facility] Comment on above: Performed By: #### P T, PTT, AMYL, CMP, LIPA, PHOS ####[place] [address]#### TRANSF ####[place] [phone] Calcium 8.7 mg/dL Normal 8.5-10.5 [facility] Comment on above: Performed By: #### P T, PTT, AMYL, CMP, LIPA, PHOS ####[place] [phone]#### TRANSF ####[place] [phone] Chloride 101 mmol/L Normal 98-110 [facility] Comment on above: Performed By: #### P T, PTT, AMYL, CMP, LIPA, PHOS ####[place] [phone]#### TRANSF ####[address] [phone] CO2 26 mmol/L Normal 23-32 [facility] Comment on above: Performed By: #### P T, PTT, AMYL, CMP, LIPA, PHOS ####[address]#### TRANSF ####[place] [phone] Creatinine 0.58 mg/dL Low 0.70-1.40 [facility] Comment on above: Performed By: #### P T, PTT, AMYL, CMP, LIPA, PHOS ####[place] [address]#### TRANSF ####[place] [phone] eGFR (non-black) mL/min/{1.73_m2} Normal >60 [facility] Comment on above: Performed By: #### P T, PTT, AMYL, CMP, LIPA, PHOS ####[place] [address]#### TRANSF ####[place] [phone] Glucose mass conc 124 mg/dL High 65-100 [facility] Comment on above: Performed By: #### P T, PTT, AMYL, CMP, LIPA, PHOS ####[place] [address]#### TRANSF ####[place] [phone] Potassium molar conc 4.5 mmol/L Normal 3.5-5.0 [facility] Comment on above: Performed By: #### P T, PTT, AMYL, CMP, LIPA, PHOS ####[place] [address]#### TRANSF ####[place] [phone] Sodium 138 mmol/L Normal 135-146 [facility] Comment on above: Performed By: #### P T, PTT, AMYL, CMP, LIPA, PHOS ####[place] [address]#### TRANSF ####[place] [phone] Urea nitrogen 11 mg/dL Normal 10-25 [facility] Comment on above: Performed By: #### P T, PTT, AMYL, CMP, LIPA, PHOS ####[place] [address]#### TRANSF ####[place] [phone] CBC and Differentialon 08-26 Abs Baso <0.03 Normal <0.11 [facility] Comment on above: Performed By: #### P T, PTT, AMYL, CMP, LIPA, PHOS ####[place] [address]#### TRANSF ####[place] [phone] Abs [place] 0.57 k/uL Normal <0.87 [facility] Comment on above: Performed By: #### P T, PTT, AMYL, CMP, LIPA, PHOS ####[place] [address]#### TRANSF ####[place] [phone] Abs Neut 4.61 k/uL Normal 1.45-7.50 [facility] Comment on above: Performed By: #### P T, PTT, AMYL, CMP, LIPA, PHOS ####[place] [address]#### TRANSF ####[place] [address] [address] [place] [phone] Basophils/100 WBC Auto (Bld) 0.1 % Normal [facility] Comment on above: Performed By: #### P T, PTT, AMYL, CMP, LIPA, PHOS ####[place] [address]#### TRANSF ####[place] [phone] DTYPE Auto Diff Normal [facility] Comment on above: Performed By: #### P T, PTT, AMYL, CMP, LIPA, PHOS ####[place] [address]#### TRANSF ####[place] [phone] Eosinophils 0.20 10*3/uL Normal <0.46 [facility] Comment on above: Performed By: #### P T, PTT, AMYL, CMP, LIPA, PHOS ####[place] [address]#### TRANSF ####[place] [phone] Eosinophils/100 leukocytes 2.9 % Normal [facility] Comment on above: Performed By: #### P T, PTT, AMYL, CMP, LIPA, PHOS ####[place] [address]#### TRANSF ####[place] [phone] Erythrocyte distribution width Auto Ratio (RBC) 16.0 % High 11.5-15.0 [facility] Comment on above: Performed By: #### P T, PTT, AMYL, CMP, LIPA, PHOS ####[place] [address]#### TRANSF ####[place] [phone] Erythrocytes (RBC) 3.00 10*6/uL Low 4.20-6.00 [facility] Comment on above: Performed By: #### P T, PTT, AMYL, CMP, LIPA, PHOS ####[address]#### TRANSF ####[place] [phone] Hematocrit (HCT) 26.0 % Low 39.0-51.0 [facility] Comment on above: Performed By: #### P T, PTT, AMYL, CMP, LIPA, PHOS ####[address]#### TRANSF ####[place] [phone] Hemoglobin mass conc (Bld) 8.3 g/dL Low 13.0-17.0 [facility] Comment on above: Performed By: #### P T, PTT, AMYL, CMP, LIPA, PHOS ####[place] [address]#### TRANSF ####[place] [phone] Lymphocytes 1.44 10*3/uL Normal 1.00-4.00 [facility] Comment on above: Performed By: #### P T, PTT, AMYL, CMP, LIPA, PHOS ####[address]#### TRANSF ####[place] [address] Lymphocytes/100 leukocytes 21.1 % Normal [facility] Comment on above: Performed By: #### P T, PTT, AMYL, CMP, LIPA, PHOS ####[phone]#### TRANSF ####[place] [phone] MCH 27.7 pG Normal 26.0-34.0 [facility] Comment on above: Performed By: #### P T, PTT, AMYL, CMP, LIPA, PHOS ####[place] [address]#### TRANSF ####[place] [phone] MCHC mass conc (RBC) 31.9 g/dL Normal 30.5-36.0 [facility] Comment on above: Performed By: #### P T, PTT, AMYL, CMP, LIPA, PHOS ####[place] [address]#### TRANSF ####[place] [address] MCV 86.7 fL Normal 80.0-100.0 [facility] Comment on above: Performed By: #### P T, PTT, AMYL, CMP, LIPA, PHOS ####[place] [address]#### TRANSF ####[place] [address] Monocytes/100 leukocytes 8.3 % Normal [facility] Comment on above: Performed By: #### P T, PTT, AMYL, CMP, LIPA, PHOS ####[place] [address]#### TRANSF ####[place] [address] Neutrophils/100 WBC Auto (Bld) 67.6 % Normal [facility] Comment on above: Performed By: #### P T, PTT, AMYL, CMP, LIPA, PHOS ####[place] [address]#### TRANSF ####[place] [phone] Platelet mean volume (PMV) 9.5 fL Normal 9.0-12.7 [facility] Comment on above: Performed By: #### P T, PTT, AMYL, CMP, LIPA, PHOS ####[place] [address]#### TRANSF ####[place] [phone] Platelets 481 10*3/uL High 150-400 [facility] Comment on above: Performed By: #### P T, PTT, AMYL, CMP, LIPA, PHOS ####[place] [address]#### TRANSF ####[place] [phone] WBC (Leukocytes) 6.83 10*3/uL Normal 3.70-11.00 [facility] Comment on above: Performed By: #### P T, PTT, AMYL, CMP, LIPA, PHOS ####[place] [address]#### TRANSF ####[place] [phone] Magnesiumon 08-26-2017 Magnesium 2.3 mg/dL Normal 1.7-2.6 [facility] Comment on above: Performed By: #### P T, PTT, AMYL, CMP, LIPA, PHOS ####[place] [address]#### TRANSF ####[place] [phone] NURSING PROGon 08-26-2017 NURSING PROG HNO ID: [id number] thor: Saima Kramer (Rn) Debra, RNService: (none)Author Type: Registered NurseType: Nursing Progress NoteFiled: 08/26/2017 7:20 PMNote Text: Nursing Progress NotePatient Name: Rocio Boudreaux: [id number] Location: [place] [address]/[id number] ____Daily Note:IR called and stated that they will not be able to do procedureon pt this evening. Text page to gen surg to make aware.1900: Spoke w/ [facility] - full liquid diet ordered and NPO after midnight.This note was completed by: Saima Richardson, RN [facility] PROGRESSon 08-26-2017 PROGRESS HNO ID: [id number] thor: Michael Cedillo) AugustinService: General SurgeryAuthor Type: PhysicianType: Progress NotesFiled: 08/26/2017 8:48 PMNote Text:PROGRESS NOTES - SURGICAL SERVICESPATIENT NAME: Rocio Boudreaux: [id number] HISTORY OF PRESENT ILLNESS:No acute events overnight. Pain well controlled. No nausea or vomiting.NPO for the procedure today, no fever/chillsPHYSICAL EXAM:BP 107/63 Pulse 70 Temp 37.3 ?C (99.2 ?F) (Oral) Resp 18 Ht 172.7cm (5' 8 ) Wt 87.1 kg (192 lb) SpO2 97% BMI 29.19 kg/m2Body mass index is 29.19 kg/(m2).GENERAL: Alert and oriented, no acute distress, cooperative.CARDIAC: regular rate and rythmLUNGS: Non labored breathingABDOMEN: soft, non tender, non distended. PTHC at the gravity (billious,1.3L/3S)CBC, Coags, BMP, Mg, PhosRecent Labs 08/25/1803WBC 6.83 5.66 5.48 --HB 8.3* 8.0* 7.9* --HCT 26.0* 25.6* 25.2* --PLT 481* 444* 393 --NA 138 138 -- --K 4.5 4.5 -- --CHLOR 101 101 -- --CO2 26 26 -- --BUN 11 10 -- --CREAT 0.58* 0.62* -- --GLUC 124* 118* -- --CA 8.7 8.4* -- --MG 2.3 2.3 -- 2.3P 3.4 3.0 -- 2.6Liver Function, Amylase, AND LipaseIntake/Output Summary (Last 24 hours) at 08/26/17 0746Last data filed at 08/26/17 0719 Gross per 24 hourIntake 1180 mlOutput 4283 mlNet -3103 mlSURGERY/PROCEDURE:Procedur e(s) and Anesthesia Type: * ANESTHESIA FOR NON-INVASIVE IMAGING OR RADIATION THERAPY - Choice -Anesthesia ConsultASSESSMENT AND PLAN:This is a 62 year old male s/p 7 Days Post-procedure PTHC, external andinternal biliary drain placement- XR Cholangiogram today to assess for PTHC leaks and will need to upsizethe drain today- Diet: NPO for the procedure, will resume diet after the procedure- GI: Zofran for nausea- Resp: BPH, IS- CVS/Heme: Heme stable- Renal: Strict I/Os- Neuro: Cognitive intact, alert oriented x 3- ID: Augmentin- Activity: OOB, ambulate as able- Pain control: Continue current regimen - IV dilaudid PO tylenol- Pending results: None- Prophylaxis: DVT prophylaxis, SCDs- Resume home meds- Dispo: SNF when medically readySIGNATURE: Kayleen Gonzales, MDDATE: August 26, 2017TIME: 7:46 EMMIE ALEGREI have independently seen and examined the patient today. I haveindependently reviewed all the imaging and the labs. I agree with keycomponents of the resident's note above. Care plan and decision making hasbeen discussed.Doing okayPending tube cholangiogramToms MD Froilan, MPH, FACSGeneral/Trauma/HPB SurgeryPager: [phone] Cell: [phone] 2017 Normal [facility] Phosphoruson 08-26-2017 Phosphate 3.4 mg/dL Normal 2.5-4.5 [facility] Comment on above: Performed By: #### P T, PTT, AMYL, CMP, LIPA, PHOS ####[place] [id number] [place], [place] [phone]#### TRANSF ####[facility] [address] [place], [place] [phone] ALLIED HEALTHon 08-25-2017 ALLIED HEALTH HNO ID: [id number] thor: Angelita Rosas (Chaplain)Service: Spiritual CareAuthor Type: ChaplainType: Allied HealthFiled: 08/25/2017 10:39 AMNote Text:SPIRITUAL CARE PROGRESS NOTESERVICE DATE: 08/25/2017SERVICE TIME: 10:40amSaw pt on PK3C per Spiritual Care referral. Pt's methodist is listed as None in his EMR. Pt appeared to be calm and was being visited by afamily member. Introduced myself and Spiritual Care to pt and family andextended my support. Also discussed Healing Services modalities available.Pt appreciated the offer but did not request a visit at this time. Gavehim our card and informed him that we remain available should he want avisit at another time. Follow-up by request.To contact the Spiritual Care Department: Please call [phone].SIGNATURE: Chaplain Tasia PATIENT NAME: Rocio JacksonDATE: August 25, 2017 : 10:38 AM PAGER/CONTACT #: [phone] [facility] Basic Metabolic Panlon 08-25 Anion gap 11 mmol/L Normal 9-18 [facility] Comment on above: Performed By: #### P T, PTT, AMYL, CMP, LIPA, PHOS ####[facility] [place], [place] [phone]#### TRANSF ####[facility] [address] [place], [place] [phone] Calcium 8.4 mg/dL Low 8.5-10.5 [facility] Comment on above: Performed By: #### P T, PTT, AMYL, CMP, LIPA, PHOS ####[place] [address]#### TRANSF ####[place] [phone] Chloride 101 mmol/L Normal 98-110 [facility] Comment on above: Performed By: #### P T, PTT, AMYL, CMP, LIPA, PHOS ####[place] [address]#### TRANSF ####[place] [address] CO2 26 mmol/L Normal 23-32 [facility] Comment on above: Performed By: #### P T, PTT, AMYL, CMP, LIPA, PHOS ####[place] [address]#### TRANSF ####[place] [address] Creatinine 0.62 mg/dL Low 0.70-1.40 [facility] Comment on above: Performed By: #### P T, PTT, AMYL, CMP, LIPA, PHOS ####[place] [address]#### TRANSF ####[place] [address] eGFR (non-black) mL/min/{1.73_m2} Normal >60 [facility] Comment on above: Performed By: #### P T, PTT, AMYL, CMP, LIPA, PHOS ####[place] [address]#### TRANSF ####[place] [address] Glucose mass conc 118 mg/dL High 65-100 [facility] Comment on above: Performed By: #### P T, PTT, AMYL, CMP, LIPA, PHOS ####[place] [address]#### TRANSF ####[place] [phone] Potassium molar conc 4.5 mmol/L Normal 3.5-5.0 [facility] Comment on above: Performed By: #### P T, PTT, AMYL, CMP, LIPA, PHOS ####[place] [address]#### TRANSF ####[place] [address] Sodium 138 mmol/L Normal 135-146 [facility] Comment on above: Performed By: #### P T, PTT, AMYL, CMP, LIPA, PHOS ####[place] [address]#### TRANSF ####[place] [address] Urea nitrogen 10 mg/dL Normal 10-25 [facility] Comment on above: Performed By: #### P T, PTT, AMYL, CMP, LIPA, PHOS ####[place] [address]#### TRANSF ####[place] [address] CASE MANAGEMon 08-25-2017 CASE MANAGEM HNO ID: [id number] thor: Alexandrea (Rn) Thom, MOUSTAPHAervice: Care ManagementAuthor Type: Registered NurseType: Care Mgt Progress NoteFiled: 08/25/2017 12:06 PMNote Text:MULTIDISCIPLINARY ROUNDSSERVICE DATE: 08/25/2017 ADMISSION DATE: 08/13/2017SERVICE TIME: 12:03 PM ANTICIPATED D/C DATE: 2-3 daysProblem List:ACTIVE PROBLEM LISTDuodenal ObstructionSevere Protein-Calorie Malnutrition (Hcc)Attendees Present at Rounds:Cement Patcher: Chantelleurse Accessioner/Principal Embedded Software Engineer Nurse Accessioner: Taylorocial Worker: Roderick Nurse: Yohannes Discussed on Rounds:DietDischarge NeedsPlan of CareAnticipated Discharge Disposition:Home with Home Health Care vs SNFper discussion with Gerri Espinoza CNP.plan for Cholangiogram tomorrow.Last Vitals: BP 113/66 Pulse 72 Temp (Src) 98.2 (Oral) Resp 16 Ht5' 8 (1.73m) Wt 192 lb (87.1kg) SpO2 98% BMI 29.20 kg/(m2).Pt is accepted at [facility] in [place].Pt also has been accepted by [facility].Nursing: Fluid/Electrolyte Goal Target Achievement Date: 08/26/17Mobility Goal Target Achievement Date: 08/26/17Pain Goal Target Achievement Date: 08/26/17DOCUMENTED BY: Alexandrea Tomas RN PATIENT NAME: Rociomarisa TorresschDATE: August 25, 2017 : 12:03 PM CSN: [id number] Normal [facility] CBC and Differentialon 08-25 Abs Baso <0.03 Normal <0.11 [facility] Comment on above: Performed By: #### P T, PTT, AMYL, CMP, LIPA, PHOS ####[place] [address]#### TRANSF ####[place] [address] Abs [place] 0.46 k/uL Normal <0.87 [facility] Comment on above: Performed By: #### P T, PTT, AMYL, CMP, LIPA, PHOS ####[place] [phone]#### TRANSF ####[place] [address] Abs Neut 3.52 k/uL Normal 1.45-7.50 [facility] Comment on above: Performed By: #### P T, PTT, AMYL, CMP, LIPA, PHOS ####[place] [address]#### TRANSF ####[place] [address] Basophils/100 WBC Auto (Bld) 0.4 % Normal [facility] Comment on above: Performed By: #### P T, PTT, AMYL, CMP, LIPA, PHOS ####[place] [address]#### TRANSF ####[place] [address] DTYPE Auto Diff Normal [facility] Comment on above: Performed By: #### P T, PTT, AMYL, CMP, LIPA, PHOS ####[place] [address]#### TRANSF ####[place] [address] Eosinophils 0.21 10*3/uL Normal <0.46 [facility] Comment on above: Performed By: #### P T, PTT, AMYL, CMP, LIPA, PHOS ####[place] [address]#### TRANSF ####[place] [address] Eosinophils/100 leukocytes 3.7 % Normal [facility] Comment on above: Performed By: #### P T, PTT, AMYL, CMP, LIPA, PHOS ####[place] [address]#### TRANSF ####[place] [phone] Erythrocyte distribution width Auto Ratio (RBC) 15.8 % High 11.5-15.0 [facility] Comment on above: Performed By: #### P T, PTT, AMYL, CMP, LIPA, PHOS ####[place] [address]#### TRANSF ####[place] [phone] Erythrocytes (RBC) 2.91 10*6/uL Low 4.20-6.00 [facility] Comment on above: Performed By: #### P T, PTT, AMYL, CMP, LIPA, PHOS ####[place] [address]#### TRANSF ####[place] [phone] Hematocrit (HCT) 25.6 % Low 39.0-51.0 [facility] Comment on above: Performed By: #### P T, PTT, AMYL, CMP, LIPA, PHOS ####[place] [address]#### TRANSF ####[place] [phone] Hemoglobin mass conc (Bld) 8.0 g/dL Low 13.0-17.0 [facility] Comment on above: Performed By: #### P T, PTT, AMYL, CMP, LIPA, PHOS ####[place] [address]#### TRANSF ####[place] [phone] Lymphocytes 1.45 10*3/uL Normal 1.00-4.00 [facility] Comment on above: Performed By: #### P T, PTT, AMYL, CMP, LIPA, PHOS ####[place] [address]#### TRANSF ####[place] [phone] Lymphocytes/100 leukocytes 25.6 % Normal [facility] Comment on above: Performed By: #### P T, PTT, AMYL, CMP, LIPA, PHOS ####[place] [address]#### TRANSF ####[place] [address] MCH 27.5 pG Normal 26.0-34.0 [facility] Comment on above: Performed By: #### P T, PTT, AMYL, CMP, LIPA, PHOS ####[place] [address]#### TRANSF ####[place] [phone] MCHC mass conc (RBC) 31.3 g/dL Normal 30.5-36.0 [facility] Comment on above: Performed By: #### P T, PTT, AMYL, CMP, LIPA, PHOS ####[place] [address]#### TRANSF ####[place] [phone] MCV 88.0 fL Normal 80.0-100.0 [facility] Comment on above: Performed By: #### P T, PTT, AMYL, CMP, LIPA, PHOS ####[place] [address]#### TRANSF ####[place] [phone] Monocytes/100 leukocytes 8.1 % Normal [facility] Comment on above: Performed By: #### P T, PTT, AMYL, CMP, LIPA, PHOS ####[place] [address]#### TRANSF ####[place] [phone] Neutrophils/100 WBC Auto (Bld) 62.2 % Normal [facility] Comment on above: Performed By: #### P T, PTT, AMYL, CMP, LIPA, PHOS ####[place] [address]#### TRANSF ####[place] [phone] Platelet mean volume (PMV) 10.1 fL Normal 9.0-12.7 [facility] Comment on above: Performed By: #### P T, PTT, AMYL, CMP, LIPA, PHOS ####[place] [address]#### TRANSF ####[phone] Platelets 444 10*3/uL High 150-400 [facility] Comment on above: Performed By: #### P T, PTT, AMYL, CMP, LIPA, PHOS ####[place] [address]#### TRANSF ####[place] [phone] WBC (Leukocytes) 5.66 10*3/uL Normal 3.70-11.00 [facility] Comment on above: Performed By: #### P T, PTT, AMYL, CMP, LIPA, PHOS ####[place] [address]#### TRANSF ####[phone] Magnesiumon 08-25-2017 Magnesium 2.3 mg/dL Normal 1.7-2.6 [facility] Comment on above: Performed By: #### P T, PTT, AMYL, CMP, LIPA, PHOS ####[place] [address]#### TRANSF ####[place] [phone] NURSING PROGon 08-25-2017 NURSING PROG HNO ID: [id number] thor: Shavonne KenRn) Tabatha, RNService: NursingAuthor Type: Registered NurseType: Nursing Progress NoteFiled: 08/25/2017 2:30 PMNote Text: Nursing Progress NotePatient Name: Rocio Boudreaux: [id number] Location: [place] [address]/[id number] ____Daily Note:Pt A+Ox3, speech clear, flat affect. Skin pale and slightly jaundiced.NSR with occasional PVC's on nurse monitoring. Abdomen soft, bowel soundspresent, +Flatus and +BM, see flowsheet for IANDO. Tolerating full liquiddiet, denies NANDV. Right sided drains patent, accordian drain flushed with5 ml sterile saline per order. Right double PICC patent with + bloodreturn both lumens, dressing and cap change completed per policy. Ptdenies pain at present, will continue to assess for pain. XRcholangiogram order recv'd, will be done tomorrow 08/26, pt to be NPO aftermidnight, and AM heparin dose to be held. Safety maintained.This note was completed by: Shavonne Mays RN [facility] NUTRITIONon 08-25-2017 NUTRITION HNO ID: [id number] thor: Alise Segura) BarsaService: Nutrition TherapyAuthor Type: Registered DietitianType: NutritionFiled: 08/25/2017 1:43 PMNote Text:NUTRITION THERAPY REASSESSMENTSERVICE DATE: 08/25/2017SERVICE TIME: 1:22 PMRECOMMENDED MALNUTRITION DIAGNOSIS: SEVERE PROTEIN-CALORIE MALNUTRITIONIn the context of Acute Illness or Injury based on:Unintentional Weight Loss: >5% over 1 monthInsufficient Energy Intake: adequate energy intakeSubcutaneous Fat Loss: Moderate LossMuscle Loss Moderate LossNUTRITION CARE PLAN:Problem, Etiology and Signs/Symptoms:Increased nutrient needs kcal and protein related to duodenal mass asevidenced by poor po intake and wt lossIntervention:Diet - Full LiquidsEnsure Enlive BIDMighty Shakes TIDProvided full liquid diet educationDiscussed High Protein /kcal shakesPt may use protein powders at home and make shakes or use Ensure Enliveand have at least 3-4 per day (1050 - 1400 kcal per day)Pt should monitor wt as an indicator of meeting kcal needs - wt loss wouldresult in the need for increased kcal from food or shakesRecommend MVI with Mineral supplement dailyMonitor and Evaluation:Goal: Meet >75% of estimated needsMonitor fluid/electrolyte balanceMonitor labs, I/Os, vital signs, weightDischarge Nutrition Recommendations:To be determinedPer HPI: 62 year old male with 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 S/p?PTHC placementInterval History: Pt on full liquids - tolerating 100% of mealsPresent Diet Order: Full LiquidNutritional Intake:Taking all of supplements and traysEnsure Enlive BID = 700 kcal and 40 gm proteinMighty Shakes TID = 720 kcal and 24 gm proteinTotal kcal from shakes 1420 kcal and 64 gm proteinIntakes from trays = approximately 340 - 450 kcal and 10-15 gm proteinTotal kcal from trays = 1050 kcal and 30 - 40 gm proteinApproximate kcal intake from Full liquids and supplements = ~ 2400 kcaland 100 gm proteinGI symptoms: noneAbdominal Exam: abdomen is soft and bowel sounds are normalIs the patient having any pain that is interfering with oral/enteralintake? NoANTHROPOMETRICSHeight: 172.7 cm (5' 8 )Admission Weight: 87.4 kg (192 lb 9.6 oz)Current Weight: 87.1 kg (192 lb)Body mass index is 29.19 kg/(m2). overweightWeight has decreased by 13# over 2 weeks representing 6.3 % weight change.Pt states wt usually 205# 2 weeks agoLast Wt08/17/17 : 87.1 kg (192 lb)Dosing Weight: 87?kgResting Metabolic Rate: 1661Estimated kilocalorie needs: 6764-6467?kilocalories determined by25-30?kcal/kgEstimated protein needs:113 - ?130?grams determined by1.3-1.5?g/kg?Dosing?weight Estimated fluid needs: 2200 - 2400?milliliters based on 1 mL per kcalNUTRITION FOCUSED PHYSICAL EXAM:Subcutaneous Fat LossOrbital ModerateTriceps ModerateMid-axillary at the iliac crest ModerateMuscle Loss Locations:Temporalis ModeratePectoralis ModerateDeltoids ModerateInterosseous ModerateLatissimus dorsi, trapezius Unable to determine at this timeQuadriceps ModerateGastrocnemius Unable to determine at this timePotential micronutrient deficiency revealed in: No deficiency identifiedEdema: NoAscites: NoAssessment of Functional Status: Unable to determine at this timeTemperature Max in 24 hours: Temp (24hrs), Av.1 ?C (98.7 ?F), Min:36.7?C (98.1 ?F), Max:37.3 ?C (99.2 ?F) BP 104/57 Pulse 71 Temp 37.3 ?C (99.1 ?F) (Oral) Resp 18 Ht 172.7cm (5' 8 ) Wt 87.1 kg (192 lb) SpO2 97% BMI 29.19 kg/h3Dlpuro Labs [id number] 118*BUN 10CREAT 0.62*NA 138K 4.5CHLOR 101CO2 26HB 8.0*HCT 25.6*WBC 5.66P 3.0MG 2.3Potential Signs of Inflammation: hyperglycemia and imaging studiesALLERGIESNo Known AllergiesCurrent Facility-Administered Medications:metoprolol tartrate (short acting) 50 mg tab(s) (LOPRESSOR) 50 mg ORAL q12 Hamoxicillin-clavulanate 875 mg oral liquid (AUGMENTIN) 875 mg ORAL q 12 H0.9% NaCl 2-10 mL 2-10 mL INTRAVENOUS q 12 Hinsulin lispro injection (rapid acting) (HumaLOG) SUBCUTANEOUS w MEALSAND HSheparin 5,000 Units injection 5,000 Units SUBCUTANEOUS q 8 Hphenol 1 [place] (CHLORASEPTIC) 1 [place] MUCOUS MEMBRANE (TOPICAL MOUTH ANDTHROAT) q 2 H PRN0.9% NaCl 10 mL 10 mL INTRAVENOUS q 12 H0.9% NaCl 20 mL 20 mL INTRAVENOUS PRNacetaminophen 650 mg tab(s) (TYLENOL) 650 mg ORAL q 6 H PRNoxyCODONE IR 5 mg tab(s) (ROXICODONE) 5 mg ORAL q 4 H PRNiv contrast (radiology procedure) INTRAVENOUS DIRECTED PRNnitroglycerin sublingual 0.4 mg tab(s) (NITROQUICK) 0.4 mg SUBLINGUAL q 5MIN PRNdextrose 40 % 15 g (INSTA-GLUCOSE) 15 g ORAL PRNOrglucagon 1 mg injection (GLUCAGEN) 1 mg INTRAMUSCULAR PRNOrdextrose 50% in water 25 mL syringe 12.5 g INTRAVENOUS PRNaspirin, enteric coated 162 mg tab(s) (ASPIRIN, ENTERIC COATED) 162 mgORAL DAILYHYDROmorphone 0.2 mg injection (DILAUDID) 0.2 mg INTRAVENOUS q 2 H PRNIntake/Output 08/21/17 0700 - 08/22/17 0659 08/22/17 0700 - 08/23/17 0659 700 - 08/24/17 0659 08/24/17 07 - 08/25/17 0659 08/25/17 0700 -08/26/17 0659 Intake (ml) -- 1350 1860 375 855 Output (ml) 2219 1976 1428 1930 629 Net (ml) -6567 -122 431 -2599 226Surgical Incision 08/14/17 0103 Abdomen - Laparoscopy Sites (Active)Dressing Status None: Open to Air 08/25/2017 8:57 AMIncision Closures Topical Skin Adhesive 08/25/2017 8:57 AMDrainage Description None 08/25/2017 8:57 AMDrainage Amount None 08/25/2017 8:57 AMEdges Intact 08/25/2017 8:57 AMHematoma No 08/25/2017 8:57 AMNumber of days:11MNT Billing Type: Re-assess/15 min 5 unitsSIGNATURE: Alise Lopez RD, LD PATIENT NAME: Rocio VizcarraTE: August 25, 2017 : 1:22 PM PAGER: For further assistance and weekends please page theGroup Pager -[phone] [facility] PROGRESSon 08-25-2017 PROGRESS HNO ID: [id number] thor: Michael Cedillo) AugustinService: General SurgeryAuthor Type: PhysicianType: Progress NotesFiled: 08/25/2017 11:42 AMNote Text:GENERAL SURGERY INPATIENT PROGRESS NOTENAME: Rocio JacksonMRN: [id number] 2017 7:52 AMASSESSMENT AND PLAN:Rocio Jackson is 62 year old male s/p 6 Days Post-procedure PTHC, externaland internal biliary drain placementOvernight Issues: No issues overnight. Tolerating liquid diet. Abdomensoft, non distended. 1150 output from biliary drain.Plans:- Follow final CT Abd/Pel Read- XR Cholangiogram today to assess for PTHC leaks- Diet: Clear liquid- GI: Zofran for nausea- Resp: BPH, IS- CVS/Heme: Heme stable- Renal: Strict I/Os- Neuro: Cognitive intact, alert oriented x 3- ID: Augmentin- Activity: OOB, ambulate as able- Pain control: Continue current regimen - IV dilaudid PO tylenol- Pending results: None- Prophylaxis: DVT prophylaxis, SCDs- Dispo: SNF vs. Acute Rehab when readyWill discuss plan with staff.Assessment:Vitals: BP 106/68 Pulse 72 Temp 37.3 ?C (99.2 ?F) (Oral) Resp 16 Ht 172.7 cm (5' 8 ) Wt 87.1 kg (192 lb) SpO2 97% BMI 29.19 kg/h5Mjbqxk: Breathing comfortably on RA, speaking in full sentencesAbdominal examination: Abdomen soft, non-distended, mildly tenderTubes/Drains/Stoma: PTHC drain in place, serosanguineous outputFlatus/Bowel movement: Bowel function +Nausea/Emesis: NegativePain Control: IV dilaudid PO tylenolRenal: UOP adequateAntibiotics: AugmentinPending labs/results: None. Culture grew streptococcus mutansDate 08/23/17 07 - 08/24/17 0659 08/24/17 07 - 08/25/17 0659Shift 1414-1455 1683-0525 3900-7805 24 Hour Total 0382-8668 0369-17585037-7918 24 Hour TotalINTAKE PO 1080 659 84 1349 PO 600 299 78 0130 Supplements (mL) 480 240 720 Shift Total 1080 720 60 1860OUTPUT Urine 3 101 104 0 0 Void (ml) 100 100 0 0 Urine Incontinence/Not Saved 1 x 1 x Urine Not Saved 3 1 4 Emesis 0 0 Emesis (ml) 0 0 Tubes 625 568 925 0584 300 300 Drain/Tube Output (Drain/Tube 08/15/17 1530 Assessment Right UpperAbdomen) 50 50 0 0 Drain/Tube Output (Drain/Tube 08/19/17 1443 Biliary Right Lateral;LowerQuadrant Abdomen) 625 785 106 0208 300 300 # of BMs Number of BMs 2 x 1 x 1 x 4 x 1 x 1 x Shift Total 625 975 489 0952 300 300Weight (kg) 87.1 87.1 87.1 87.1 87.1 87.1 87.1 87.1Recent Labs 08/24/1803WBC 5.48 -- -- 5.23 5.64HB 7.9* -- -- 8.1* 8.9*HCT 25.2* -- -- 25.0* 27.9*PLT 393 -- -- 354 380NA -- -- 139 139 --K -- -- 4.1 3.7 --CHLOR -- -- 104 105 --CO2 -- -- 25 25 --CREAT -- -- 0.55* 0.57* --BUN -- -- 10 8* --GLUC -- -- 123* 111* --P -- 2.6 2.4* 2.6 --MG -- 2.3 2.3 2.3 --CA -- -- 7.7* 7.7* --This note will be reviewed by my attending physician and changes will bemade where applicable.Lee Ann Thao MD7:52 AM August 25, 2017PAGER: [phone](After 6pm and weekends please contact Surgery oncall team)STAFF NOTEI have independently seen and examined the patient today. I haveindependently reviewed all the imaging and the labs. I agree with keycomponents of the resident's note above. Care plan and decision making hasbeen discussed.Doing well overallCT with decreasing size of anterior abdominal wall collectionGallbladder fossa collection appears to be a hematomaPTC in the duodenumTube cholangiogram today, if no leak would cap Noah Jolley MD, MPH, FACSGeneral/Trauma/HPB SurgeryPager: [phone] Cell: [phone] 2017 Normal [facility] Phosphoruson 08-25-2017 Phosphate 3.0 mg/dL Normal 2.5-4.5 [facility] Comment on above: Performed By: #### P T, PTT, AMYL, CMP, LIPA, PHOS ####[facility] [place], [place] [phone]#### TRANSF ####[facility] [place], [place] [phone] THERAPY NTon 08-25-2017 THERAPY NT HNO ID: [id number] thor: Sujata (Pt) PapcunService: Physical TherapyAuthor Type: Physical TherapistType: Therapy (PT/OT/Speech/Resp)Filed: 08/25/2017 12:18 PMNote Text:Physical Therapy TreatmentSERVICE DATE: 08/25/2017SERVICE TIME: 1143 to 1206ROOM: [place] [address] ( OPERATING ROOM)Recommended Discharge Disposition: Home PTRecommended Discharge Disposition Comments: Home if pt has support athome. otherwise SNF.Justification For Post Acute Needs: Motivated;Willing to participate;Goodfamily support;Cognition intact;Anticipated community dischargeAnticipated Discharge Needs: Supervision at HomePhysical Assist at Home for:Cleaning;Laundry;Meals;S hopping;Transportation;Ambul ationSupervision at Home due to: Other: See Comment (recent surgery)Recommended Discharge Equipment: Wheeled WalkerPT Recommendations to Nursing: Ambulate with device using gait belt;Tobathroom using gait belt;In halls using gait belt;OOB for Meals using gaitbelt;With assist of 1 personDevice: Wheeled WalkerPT 6 Clicks Score: 21Precautions/Activity Restrictions: Lines/Tubes/Drains;Fall RiskASSESSMENT :Patient presents with PTHC, external and internal biliary drain placement;cholangiogram planned tomorrow per epic. Requires skilled PT for forimprovement of strength and functional mobility.Tolerated Full Session PainPhysical Therapy Problem List: Edema;Safety Deficits;Impaired SelfCare;Decreased Activity Tolerance;Decreased Strength;Functional MobilityImpairment;Balance ImpairedPatient /Caregiver Goals: Go HomeGoals for Plan of Care:Able to perform HEP with: IndependentRolling with: Modified IndependentTransfer supine to/from sit with: Modified IndependentTransfer sit to/from stand with: Modified IndependentAmbulate with: Modified IndependentDistance: 200'Device: Wheeled WalkerAmbulate up and down steps with: Modified IndependentNumber of steps: 4Device: RailProgress Toward Goals: Progressing as expectedRehab Potential: GoodPLAN:Treatment Frequency (times per week): 2 (and 2prn visits.) Current admissionTreatment Interventions: Education;Strengthening;Func tional MobilityTraining;Balance Training;Self Care / Home ManagementPlan of Care developed with: PatientTREATMENT INTERVENTIONS:Therapy Diagnosis: Reduced mobility-other;Muscle Weakness (generalized)Interventions Provided: Therapeutic Exercise (10810);Gait Training (94007)Therapeutic Exercise (00209) Treatment Minutes: 121 unitSkilled Intervention(s): Instruction in therapeutic exercise BLE seatedfor strengthening, cues for tempo.Gait Training (30694) Treatment Minutes: 111 unitSkilled Intervention(s): Instruction in sit to stand technique with properhand placement and body positioning at edge of bed/chair, Instruction instand to sit technique with LE's touching chair/bed and reaching back forsurface and using a wheeled walker for balance support during gait skills.No loss of balance noted.Total Timed Code Treatment Minutes: 23Total Treatment Time (minutes): 23FUNCTIONAL G CODE:PT 6 Clicks Score: 21 (08/25/17 1143)Mobility: Walking and Moving Around Current Status (G8978): CJ ()Mobility: Walking and Moving Around Goal Status (G8979): CJ ()Based on clinical assessment and the score on the 6 Clicks FunctionalAssessment Tool, the G code and corresponding severity modifiers aredocumented above.SUBJECTIVE:Current Hospital Course: Chart reviewed; PTHC, external and internalbiliary drain placementPatient Report: Left shoulder and upper/middle back pain. Pt stated hewants to go home.Home EnvironmentPatient Lives With: Family (with daughter and son;2 floor house)Assistance Available: PRNEntry To Home: Stairs;Without RailNumber Of Stairs Into Home: 2Number Of Stairs To Bed/Bath: 0 (1st floor living)Tub/Shower Type: walk in showerLaundry: dtr does house chores.Equipment Owned: (sister has std walker and cane that pt can borrow.)Prior Functional Level: Required AssistanceAssistance Required With: Cleaning;Laundry;Meals;Shopp ingPrior Functional Level Comments: pt drives; works;indep ambul without asstdevice.OBJECTIVE:CURRENT FUNCTIONAL STATUS:Current Functional Mobility Assist Level Additional InformationRolling Modified IndependentSupine to Sit Modified IndependentSit to SupineScooting Modified IndependentSit to Stand SupervisionStand to Sit SupervisionBed to ChairToilet/CommodeGait Contact Guard Assistance Gait Device: Wheeled Walker Gait Distance (feet): 220'StairsCurb StepCar TransferGeneral Gait Deviations: Anushka decreased;Step length decreased;Flexedtrunk postureBalance: Dynamic StandingDynamic Standing Balance: Contact Guard AssistancePlease see discipline specific clinical documentation flowsheet forcomplete details for this therapy evaluation/treatment.SIGNATU RE: Sujata Ohara PT PATIENT NAME: Rocio JacksonDATE: August 25, 2017 : 12:16 PM PAGER/CONTACT #: [phone] [facility] ALLIED HEALTHon 08-24-2017 ALLIED HEALTH HNO ID: [id number] thor: Albert Sutherland: (none)Author Type: (none)Type: Allied HealthFiled: 08/24/2017 6:37 PMNote Text: Radiology Service Progress NotePATIENT NAME: Rocio JacksonMRN: [id number] OF SERVICE: August 24, 2017TIME: 6:37 PMPATIENT IDENTITY VERIFICATION COMPLETED USING TWO (2) METHODS: Patientconfirmed name verbally and ID band matches..PATIENT GENDER DATA: MalePATIENT RELEVANT IMPLANT DATA REVIEWED: Not ApplicableRADIOLOGY DEPARTMENT: CT; Exam(s) Completed: Abdomen/PelvisPERIPHERAL IV DATA: Inpatient: see LDA documentationSIGNED BY: Albert Vaughan 2017 6:37 PM [facility] CASE MANAGEMon 08-24-2017 CASE MANAGEM HNO ID: [id number] thor: Alexandrea (Rn) Thom, RNService: Care ManagementAuthor Type: Registered NurseType: Care Mgt Progress NoteFiled: 08/24/2017 10:42 AMNote Text:CARE MANAGEMENT PROGRESS NOTESERVICE DATE: 08/24/2017SERVICE TIME: 10:39 AM LOS: 11 daysFREEDOM OF CHOICE GIVEN:Yes offeredThe patient and/or family has been given the Provider List: Yes for SNFsNeeds Prior to Discharge: Accepting Facility;PrecertificationThi s CM met with pt at bedside to review dc planning options.Pt states he feels weeker, [facility] SN[facility],A list was given to pt.PT OT updates are needed.A Precert is needed.Pt is on Full Liquid dietSIGNATURE: Alexandrea Tomas RN PATIENT NAME: Rocio TorresschDATE: August 24, 2017 : 10:39 AM PAGER/CONTACT #: [phone] [facility] CBC and Differentialon 08-24 Abs Baso <0.03 Normal <0.11 [facility] Comment on above: Performed By: #### P T, PTT, AMYL, CMP, LIPA, PHOS ####[place] [address]#### TRANSF ####[place] [phone] Abs [place] 0.51 k/uL Normal <0.87 [facility] Comment on above: Performed By: #### P T, PTT, AMYL, CMP, LIPA, PHOS ####[place] [phone]#### TRANSF ####[place] [address] Abs Neut 3.42 k/uL Normal 1.45-7.50 [facility] [place] Comment on above: Performed By: #### P T, PTT, AMYL, CMP, LIPA, PHOS ####[address]#### TRANSF ####[place] [address] [address] [phone] Basophils/100 WBC Auto (Bld) 0.4 % Normal [facility] [place] Comment on above: Performed By: #### P T, PTT, AMYL, CMP, LIPA, PHOS ####[place] [address]#### TRANSF ####[address] [place] [phone] DTYPE Auto Diff Normal [facility] [place] Comment on above: Performed By: #### P T, PTT, AMYL, CMP, LIPA, PHOS ####[place] [address]#### TRANSF ####[place] [phone] Eosinophils 0.17 10*3/uL Normal <0.46 [facility] [place] Comment on above: Performed By: #### P T, PTT, AMYL, CMP, LIPA, PHOS ####[place] [address]#### TRANSF ####[place] [address] Eosinophils/100 leukocytes 3.1 % [facility] [place] Comment on above: Performed By: #### P T, PTT, AMYL, CMP, LIPA, PHOS ####[place] [address]#### TRANSF ####[place] [address] Erythrocyte distribution width Auto Ratio (RBC) 16.1 % High 11.5-15.0 [facility] [place] Comment on above: Performed By: #### P T, PTT, AMYL, CMP, LIPA, PHOS ####[place] [address]#### TRANSF ####[place] [address] Erythrocytes (RBC) 2.87 10*6/uL Low 4.20-6.00 [facility] Comment on above: Performed By: #### P T, PTT, AMYL, CMP, LIPA, PHOS ####[place] [address]#### TRANSF ####[place] [address] Hematocrit (HCT) 25.2 % Low 39.0-51.0 [facility] [place] Comment on above: Performed By: #### P T, PTT, AMYL, CMP, LIPA, PHOS ####[place] [address]#### TRANSF ####[place] [address] Hemoglobin mass conc (Bld) 7.9 g/dL Low 13.0-17.0 [facility] [place] Comment on above: Performed By: #### P T, PTT, AMYL, CMP, LIPA, PHOS ####[place] [address]#### TRANSF ####[place] [address] Lymphocytes 1.36 10*3/uL Normal 1.00-4.00 [facility] [place] Comment on above: Performed By: #### P T, PTT, AMYL, CMP, LIPA, PHOS ####[place] [address]#### TRANSF ####[place] [address] Lymphocytes/100 leukocytes 24.8 % Normal [facility] [place] Comment on above: Performed By: #### P T, PTT, AMYL, CMP, LIPA, PHOS ####[place] [address]#### TRANSF ####[place] [address] MCH 27.5 pG Normal 26.0-34.0 [facility] [place] Comment on above: Performed By: #### P T, PTT, AMYL, CMP, LIPA, PHOS ####[place] [address]#### TRANSF ####[place] [phone] MCHC mass conc (RBC) 31.3 g/dL Normal 30.5-36.0 [facility] Comment on above: Performed By: #### P T, PTT, AMYL, CMP, LIPA, PHOS ####[place] [address]#### TRANSF ####[place] [address] MCV 87.8 fL Normal 80.0-100.0 [facility] [place] Comment on above: Performed By: #### P T, PTT, AMYL, CMP, LIPA, PHOS ####[place] [address]#### TRANSF ####[place] [address] Monocytes/100 leukocytes 9.3 % [facility] [place] Comment on above: Performed By: #### P T, PTT, AMYL, CMP, LIPA, PHOS ####[place] [address]#### TRANSF ####[place] [address] Neutrophils/100 WBC Auto (Bld) 62.4 % [facility] [place] Comment on above: Performed By: #### P T, PTT, AMYL, CMP, LIPA, PHOS ####[place] [address]#### TRANSF ####[place] [phone] Platelet mean volume (PMV) 9.6 fL Normal 9.0-12.7 [facility] [place] Comment on above: Performed By: #### P T, PTT, AMYL, CMP, LIPA, PHOS ####[place] [address]#### TRANSF ####[place] [phone] Platelets 393 10*3/uL Normal 150-400 [facility] [place] Comment on above: Performed By: #### P T, PTT, AMYL, CMP, LIPA, PHOS ####[place] [address]#### TRANSF ####[place] [phone] WBC (Leukocytes) 5.48 10*3/uL Normal 3.70-11.00 [facility] Comment on above: Performed By: #### P T, PTT, AMYL, CMP, LIPA, PHOS ####[address]#### TRANSF ####[place] [phone] CT ABD/PEL WO IVCONon 2017 CT ABD/PEL WO IVCON * * *Final Report* * *DATE OF EXAM: Aug 24 2017 6:36PM FVC 0531 - CT ABD/PEL WO IVCON / REASON: Abscess after procedure * * * * Physician Interpretation * * * * EXAMINATION: CT ABDOMEN AND PELVIS WITHOUT IV CONTRASTCLINICAL HISTORY: Intra-abdominal abscessTECHNIQUE: Non-IV contrast imaging of the abdomen and pelvis was performed using standard technique, scanning from just above the dome of the diaphragm to the symphysis pubis. Unenhanced imaging is limited for the evaluation of some intra-abdominal and pelvic pathology.MQ: [id number]_3Contrast: NoneCT Radiation dose: Integrated Dose-length product (DLP) for this visit = 906 mGy*cm.CT Dose Reduction Employed: Automated exposure control (AEC)COMPARISON: 08/14/2017RESULT:Abdomen / Pelvis:Liver: 1 cm left hepatic lobe cyst is stable.Biliary: Complex fluid/hematoma in the gallbladder fossa is stable. Status post cholecystectomy. Internal/external percutaneous biliary drain. No duct dilation.Spleen: No splenomegaly.Pancreas: Unremarkable.Adrenals: No mass.Kidneys: No calculus, hydronephrosis or finding to suggest a cyst or mass in the unenhanced kidney.GI Tract: No bowel dilation. Normal appendix.Lymph Nodes: Mildly prominent periportal nodes are likely reactive.Mesentery/peritoneu m: Near complete resolution of subhepatic fluid collection adjacent to the left hepatic lobe, status post percutaneous drainage. Small residual fluid in the lesser sac, decreased when compared to the prior study. Trace ascites has nearly completely resolved.Retroperitoneum: No mass.Vasculature: Arterial atherosclerotic disease without aneurysm.Pelvis: Right-sided hydrocele.Bones/Soft Tissues: No acute abnormality.Lower thorax: Trace bilateral pleural effusions. Calcified granuloma right middle lobe. Marked coronary artery calcifications.IMPRESSION:RE SOLUTION OF BILIARY DUCTAL DILATION STATUS POST BILIARY DRAIN PLACEMENT.NEAR COMPLETE RESOLUTION OF PARA/SUBHEPATIC FLUID COLLECTION.Ergonomic Specialist: NII Transcribe Date/Time: Aug 25 2017 8:07ADictated by : ASHLEY MORALES MDThis examination was interpreted and the report reviewed and electronically signed by: ASHLEY MORALES MD on Aug 25 2017 8:40AM [id number] [facility] Magnesiumon 08-24-2017 Magnesium 2.3 mg/dL Normal 1.7-2.6 [facility] [place] Comment on above: Performed By: #### P T, PTT, AMYL, CMP, LIPA, PHOS ####[facility] [place] [place], [place] [phone]#### TRANSF ####[facility] [place], [place] [phone] NURSING PROGon 08-24-2017 NURSING PROG HNO ID: [id number] thor: Shavonne (Rn) Tabatha, RNService: NursingAuthor Type: Registered NurseType: Nursing Progress NoteFiled: 08/24/2017 4:58 PMNote Text: Nursing Progress NotePatient Name: Rocio Boudreaux: [id number] Location: [place] [address]/[id number] ____Daily Note:Pt A+Ox3, flat affect, quiet. Speech clear. Skin pale and slightlyjaundiced. NSR on nurse monitoring. Abdomen soft and tender, 3 lap sitesOTA with skin glue, no drainage. Accordian drain patent, flushed with 5ml sterile saline per order. Biliary drain patent with brown, biliousoutput. +BM, voiding freely. Ambulates halls with [address]Dr Jolley rounded and new order recv'd for CT ABD/PEL. Pain controlledwith tylenol and oxycodone PRN. Sister at bedside. Safety maintained.Will continue with plan of care.This note was completed by: Shavonne Mays, RN [facility] PROGRESSon 08-24-2017 PROGRESS HNO ID: [id number] thor: Michael Cedillo) AugustinService: General SurgeryAuthor Type: PhysicianType: Progress NotesFiled: 08/24/2017 4:45 PMNote Text:GENERAL SURGERY INPATIENT PROGRESS NOTENAME: Rocio JacksonN: [id number] 2017 8:43 AMASSESSMENT AND PLAN:Rocio Jackson is 62 year old male s/p 5 Days Post-procedure PTHC, externaland internal biliary drain placementOvernight Issues: No issues overnight. Tolerating liquid diet. Abdomensoft, mildly distended. No nausea/vomiting. 1275 output from biliarydrain.Plans:- Diet: Clear liquid- GI: Zofran for nausea- Resp: BPH, IS- CVS/Heme: Heme stable- Renal: Strict I/Os- Neuro: Cognitive intact, alert oriented x 3- ID: Augmentin- Activity: OOB, ambulate as able- Pain control: Continue current regimen - IV dilaudid PO tylenol- Pending results: None- Prophylaxis: DVT prophylaxis, SCDs- Dispo: Mian discuss plan with staff.Assessment:Vitals: BP 114/63 Pulse 70 Temp 37 ?C (98.6 ?F) (Oral) Resp 16 Ht172.7 cm (5' 8 ) Wt 87.1 kg (192 lb) SpO2 97% BMI 29.19 kg/k7Dtmoom: Breathing comfortably on RA, speaking in full sentencesAbdominal examination: Abdomen soft, non-distended, mildly tenderTubes/Drains/Stoma: PTHC drain in place, serosanguineous output, 1275mlFlatus/Bowel movement: Bowel function +Nausea/Emesis: NegativePain Control: IV dilaudid PO tylenolRenal: UOP adequateAntibiotics: AugmentinPending labs/results: None. Culture grew streptococcus mutansDate 08/23/17 07 - 08/24/17 0659 08/24/17 0700 - 08/25/17 0659Shift 9314-3645 3657-0719 7358-5650 24 Hour Total 9196-2666 9018-80214489-9684 24 Hour TotalINTAKE PO 1080 545 50 7271 PO 600 818 17 8144 Supplements (mL) 480 240 720 Shift Total 1080 720 60 1860OUTPUT Urine 3 101 104 0 0 Void (ml) 100 100 0 0 Urine Incontinence/Not Saved 1 x 1 x Urine Not Saved 3 1 4 Emesis 0 0 Emesis (ml) 0 0 Tubes 625 907 431 6112 300 300 Drain/Tube Output (Drain/Tube 08/15/17 1530 Assessment Right UpperAbdomen) 50 50 0 0 Drain/Tube Output (Drain/Tube 08/19/17 1443 Biliary Right Lateral;LowerQuadrant Abdomen) 625 210 515 8031 300 300 # of BMs Number of BMs 2 x 1 x 1 x 4 x 1 x 1 x Shift Total 625 257 525 5767 300 300Weight (kg) 87.1 87.1 87.1 87.1 87.1 87.1 87.1 87.1Recent Labs 08/24/1803/454692 02/23/188492NFQ 5.48 -- -- 5.23 5.64HB 7.9* -- -- 8.1* 8.9*HCT 25.2* -- -- 25.0* 27.9*PLT 393 -- -- 354 380NA -- -- 139 139 --K -- -- 4.1 3.7 --CHLOR -- -- 104 105 --CO2 -- -- 25 25 --CREAT -- -- 0.55* 0.57* --BUN -- -- 10 8* --GLUC -- -- 123* 111* --P -- 2.6 2.4* 2.6 --MG -- 2.3 2.3 2.3 --CA -- -- 7.7* 7.7* --This note will be reviewed by my attending physician and changes will bemade where applicable.Serena Trent MDGenethe surgical hospital at southwoods Surgery, PGY - 1Pager #: [phone](After 6pm and weekends please contact Surgery oncall team)STAFF NOTEI have independently seen and examined the patient today. I haveindependently reviewed all the imaging and the labs. I agree with keycomponents of the resident's note above. Care plan and decision making hasbeen discussed.Doing well, no complaintsWill get CT to assess status of collectionsPTC cholangiogram to look for active leaksToms MD Froilan, MPH, FACSGeneral/Trauma/HPB SurgeryPager: [phone] Cell: [phone] 2017 Normal [facility] Phosphoruson 08-24-2017 Phosphate 2.6 mg/dL Normal 2.5-4.5 [facility] [place] Comment on above: Performed By: #### P T, PTT, AMYL, CMP, LIPA, PHOS ####[facility] [place] [place], [place] [phone]#### TRANSF ####[facility] [address] [place], [place] [phone] THERAPY NTon 08-24-2017 THERAPY NT HNO ID: [id number] thor: Mandi (Ot) GarnekService: Occupational TherapyAuthor Type: Occupational TherapistType: Therapy (PT/OT/Speech/Resp)Filed: 08/24/2017 1:30 PMNote Text:Occupational Therapy TreatmentSERVICE DATE: 08/24/2017SERVICE TIME: 1245 to 1300ROOM: -SG9W-09 ( OPERATING ROOM)Admit with Emesis X 1 Month, Abdominal Pain, Partial Duodenal Obstructionand Obstructive Jaundice, Abdominal Abscess, S/P CT Guided AbscessDrainage 08/15/17, S/P Recent Cholecystectomy 08/11/17, and ERCP 08/13/17?Recommended Discharge Disposition: Subacute/SNFRecommended Discharge Disposition Comments: (Pt [place] therapyin SNF in [place])Anticipated Discharge Needs: Physical Assist at HomePhysical Assist at Home for: Ambulation;Cleaning;Laundry; Meals;MedicationManagement;S tairs;Self Care;Shopping;Transportation Recommended Discharge Equipment: Elastic Shoe Laces;Grab Bars-Shower;HandHeld Shower;Long Handled Shoe Horn;Long Handled Sponge;WheeledWalker;Solid Waste Landfill Technician ;Sock Aide;Shower ChairOT Recommendations to Nursing: OOB for meals with Gait Belt;To Bathroomfor ADL?s /and or Toileting with Gait Belt;With assist of 1 personEquipment: Wheeled WalkerOT 6 Clicks Score: 18Precautions/Activity Restrictions: Bed/Chair Alarm;FallRisk;Lines/Tubes/D rainsASSESSMENT: Pt is a 62 year old male admit with Emesis X 1 Month,Abdominal Pain, Partial Duodenal Obstruction and Obstructive Jaundice,Abdominal Abscess, S/P CT Guided Abscess Drainage 08/15/17, S/P RecentCholecystectomy 08/11/17, and ERCP 08/13/17. Past Medical History Relevantto Therapy Includes: DM, Glaucoma, HTN, MD. For Complete Past MedicalHistory Please Refer to Epic. Pt presents with decreased ability tocomplete ADL's requiring assist at this time. Pt also presents withdecreased activity tolerance, functional mobility, strength, and safety.Pt requires skilled OT services to address progression of ADL's,functional mobility, strength, increase activity tolerance, and safety.Pt has adequate support and social structure for reasonably safe dischargehome at current level. 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 Pt has a small dog that his son walks daily. Pt hastwo adult children that do not work, and are home daily, however Pt plansto stay with his sister in her one level home. Pt's sister is home, andwill be able to assist post acute stay.?Tolerated Full SessionOccupational Therapy Problem List: Safety Deficits;Impaired SelfCare;Decreased Activity Tolerance;Decreased Strength;Functional MobilityImpairmentPatient /Caregiver Goals: Go HomeGoals for Plan of Care:Able to perform HEP with: Modified IndependentGrooming with: Modified IndependentUpper Body Bathing with: Modified IndependentUpper Body Dressing with: Modified IndependentLower Body Bathing with: Stand By AssistanceLower Body Dressing with: Stand By AssistanceToilet Hygiene with: Stand By AssistanceChair Transfer with: Stand By AssistanceToilet Transfer with: Stand By AssistanceTolerate (minutes of functional activity): 30Functional Activity with: Stand By AssistanceDemonstrate Competence With Education with: IndependentProgress Toward Goals: Progressing as expectedRehab Potential: GoodPLAN:Treatment Frequency (times per week): 2Treatment Duration (number): 1 WeeksTreatment Interventions: Education;Self Care / Home Management;EnergyConservatio n Training;Strengthening;Funct ional Mobility TrainingPlan of Care developed with: PatientTREATMENT INTERVENTIONS:Therapy Diagnosis: Reduced mobility-other;Decreased activities of dailyliving (ADL);Muscle Weakness (generalized)Interventions Provided: Therapeutic Activity (46136)Therapeutic Activity (77778) Treatment Minutes: 151 unitSkilled Intervention(s): Instructed patient in log roll techniqueInstructed patient in supine to sit pushing with upper extremities to situpInstruction in sit to stand technique with proper hand placement and bodypositioning at edge of bed/chairInstruction in stand to sit technique with lower extremities touchingchair/bed and reaching back for surfaceEducation with fall precautions.Total Timed Code Treatment Minutes: 15Total Treatment Time (minutes): 15FUNCTIONAL G CODE:OT 6 Clicks Score: 18 (08/24/171244)Self Care Current Status (G8987): CK (08/24/171244)Self Care Goal Status (G8988): CJ (08/24/171244)Based on clinical assessment and the score on the 6 Clicks FunctionalAssessment Tool, the G code and corresponding severity modifiers aredocumented above.SUBJECTIVE:Current Hospital Course: Chart reviewed; Refer to above notePatient Report: I am tired today Home EnvironmentPatient Lives With: Family (with daughter and son;2 floor house)Assistance Available: PRNEntry To Home: Stairs;Without RailNumber Of Stairs Into Home: 2Number Of Stairs To Bed/Bath: 0 (1st floor living)Tub/Shower Type: walk in showerLaundry: dtr does house chores.Equipment Owned: (sister has std walker and cane that pt can borrow.)Prior Functional Level: Required AssistanceAssistance Required With: Cleaning;Laundry;Meals;Shopp ingPrior Functional Level Comments: pt drives; works;indep ambul without asstdevice.OBJECTIVE:Respons iveness: Awake;AlertFollows Commands: 3-step CommandsVision Deficits: Wears glasses;Other: See Comment (at all times)CURRENT FUNCTIONAL STATUS:Current Activities of Daily Living Assist LevelFeeding Modified IndependentGrooming Stand By AssistanceBathing Upper Body Stand By AssistanceBathing Lower Body Moderate AssistanceDressing Upper Body Stand By AssistanceDressing Lower Body Moderate AssistanceToileting Maximal AssistanceInstrumental Activities of Daily Living Assist LevelMeal/Beverage PrepLight CleaningLaundryMedication Management with StrategiesFunctional Mobility Assist LevelRollingSupine to Sit Minimal AssistanceSit to SupineScooting SupervisionSit to Stand Minimal AssistanceStand to Sit Minimal AssistanceBed to Chair Minimal Assistance (Pt ambulated around the bed to chair)Wheeled WalkerToilet/CommodeFunction al Mobility Minimal Assistance Wheeled WalkerBalance: Static Sitting;Dynamic Sitting;Static Standing;Dynamic StandingStatic Sitting Balance: SupervisionDynamic Sitting Balance: SupervisionStatic Standing Balance: Minimal AssistanceDynamic Standing Balance: Minimal AssistanceActivity Tolerance: (Pt fatigued following ambulation)Please see discipline specific clinical documentation flowsheet forcomplete details for this therapy evaluation/treatment.HEBER RE: WENDY Arceo/Timo PATIENT NAME: Rocio JacksonDATE: August 24, 2017 : 1:28 PM PAGER: [phone] [facility] [place] THERAPY NT HNO ID: [id number] thor: Adela (Nurses Educator) Carlin: Physical TherapyAuthor Type: Physical Therapy AssistantType: Therapy (PT/OT/Speech/Resp)Filed: 08/24/2017 10:53 AMNote Text: -Attestation signed by Tonia Schmitz at 08/24/2017 12:43 PMI reviewed and agree with the documentation corresponding to this therapyvisit.SIGNATURE: Tonia Schmitz, PTDATE: August 24, 2017TIME: 12:43 PM Ph ysical Therapy TreatmentSERVICE DATE: 08/24/2017SERVICE TIME: 1015 to 1040RO[facility]: [facility] ( [facility])Abdominal abscess; S/ P cholestectomy , ERCP, S/P abscess drainageRecommended Discharge Disposition: Subacute/SNFRecommended Discharge Disposition Comments: (for continued functionalmobility skills and medical issues)Justification For Post Acute Needs: Anticipate that patient will requiredaily (5x/wk) skilled therapy in a post-acute facility setting at the timeof acute hospital discharge;Willing to participate;Medicallycomplex ;Living the community premorbidly;Good sitting tolerance;Cognitionintact;An ticipated community discharge;Good premorbid functionalstatus;MotivatedAn ticipated Discharge Needs: Physical Assist at HomePhysical Assist at Home for: Ambulation;Cleaning;Laundry; Meals;MedicationManagement;S tairs;Self Care;Shopping;Transportation Recommended Discharge Equipment: Wheeled WalkerPT Recommendations to Nursing: With assist of 1 person;OOB for Meals usinggait belt;Ambulate with device using gait belt;To bathroom using gaitbelt;In halls using gait beltDevice: Wheeled WalkerPT 6 Clicks Score: 19Precautions/Activity Restrictions: Bed/Chair Alarm;FallRisk;Lines/Tubes/D rainsASSESSMENT :Pt reports feeling weak and does not feel ready for d/c home. Pt alsoconcerned regarding medical issues and feels family may not be able toassist. Pt reports he will be having another procedure in 1-2 weeks. Ptwould benefit from increased strengthening, balance and endurance also toprepare for procedure.Tolerance Limited By Fatigue;Physiologic Response (weakness; decreasedendurance )Physical Therapy Problem List: Edema;Safety Deficits;Impaired SelfCare;Decreased Activity Tolerance;Decreased Strength;Functional MobilityImpairment;Balance ImpairedPatient /Caregiver Goals: Go To Rehab;WalkGoals for Plan of Care:Able to perform HEP with: IndependentRolling with: Modified IndependentTransfer supine to/from sit with: Modified IndependentTransfer sit to/from stand with: Modified IndependentAmbulate with: Modified IndependentDistance: 200'Device: Wheeled WalkerAmbulate up and down steps with: Modified IndependentNumber of steps: 4Device: RailProgress Toward Goals: Progressing as expectedRehab Potential: GoodPLAN:Treatment Frequency (times per week): 2 (and 2prn visits.) Current admissionTreatment Interventions: Functional MobilityTraining;Strengtheni ng;Education;Balance Training;Self Care / HomeManagementPlan of Care developed with: PatientTREATMENT INTERVENTIONS:Therapy Diagnosis: Reduced mobility-other;Decreased activities of dailyliving (ADL);Muscle Weakness (generalized);General symptoms andsigns-otherInterventions Provided: Therapeutic Exercise (30380);Gait Training (45186)Therapeutic Exercise (35894) Treatment Minutes: 101 unitSkilled Intervention(s): Instruction in therapeutic exercise for B LEstrengthening, balanceVerbal and tactile cuing provided for pace and performance; rest breaksprovided as neededGait Training (52090) Treatment Minutes: 151 unitSkilled Intervention(s): Instruction in sit to stand technique with properhand placement and body positioning at edge of bed/chair, Instruction instand to sit technique with LE's touching chair/bed and reaching back forsurface, Instruction in sequencing, gait pattern, Instruction incorrection of gait deviations and Instruction in use of equipment, cuesfor sequence and patternTotal Timed Code Treatment Minutes: 25Total Treatment Time (minutes): 25FUNCTIONAL G CODE:PT 6 Clicks Score: 19 (08/24/17 1015)Mobility: Walking and Moving Around Current Status (G8978): CK ()Mobility: Walking and Moving Around Goal Status (G8979): CJ ()Based on clinical assessment and the score on the 6 Clicks FunctionalAssessment Tool, the G code and corresponding severity modifiers aredocumented above.SUBJECTIVE:Current Hospital Course: Chart reviewed and no significant medical updatesrelevant to therapy were notedPatient Report: i'm worried about these tubes and I still feel so weak Home EnvironmentPatient Lives With: Family (with daughter and son;2 floor house)Assistance Available: PRNEntry To Home: Stairs;Without RailNumber Of Stairs Into Home: 2Number Of Stairs To Bed/Bath: 0 (1st floor living)Tub/Shower Type: walk in showerLaundry: dtr does house chores.Equipment Owned: (sister has std walker and cane that pt can borrow.)Prior Functional Level: Required AssistanceAssistance Required With: Cleaning;Laundry;Meals;Shopp ingPrior Functional Level Comments: pt drives; works;indep ambul without asstdevice.OBJECTIVE:CURRENT FUNCTIONAL STATUS:Current Functional Mobility Assist Level Additional InformationRolling Verbal Cues OnlySupine to Sit Minimal AssistanceSit to SupineScooting Minimal AssistanceSit to Stand Minimal AssistanceStand to Sit Contact Guard AssistanceBed to ChairToilet/CommodeGait Minimal Assistance Gait Device: Wheeled Walker Gait Distance (feet): 100 ft x 2StairsCurb StepCar TransferGeneral Gait Deviations: Anushka decreased;Step length decreased;Flexedtrunk posture (rest breaks provided as needed due to weakness , mild SOB)Balance: Dynamic StandingDynamic Standing Balance: Contact Guard AssistancePlease see discipline specific clinical documentation flowsheet forcomplete details for this therapy evaluation/treatment.SIGNATU RE: Adela Leong PTA PATIENT NAME: Rocio JacksonDATE: August 24, 2017 : 10:46 AM PAGER/CONTACT #: [phone] [facility] Basic Metabolic Panlon 08-23 Anion gap 10 mmol/L Normal 9-18 [facility] Comment on above: Performed By: #### P T, PTT, AMYL, CMP, LIPA, PHOS ####[place] [address]#### TRANSF ####[place] [phone] Calcium 7.7 mg/dL Low 8.5-10.5 [facility] [place] Comment on above: Performed By: #### P T, PTT, AMYL, CMP, LIPA, PHOS ####[place] [address]#### TRANSF ####[place] [address]-5[address] Chloride 104 mmol/L Normal 98-110 [facility] [place] Comment on above: Performed By: #### P T, PTT, AMYL, CMP, LIPA, PHOS ####[place] [address]#### TRANSF ####[place] [address] CO2 25 mmol/L Normal 23-32 [facility] [place] Comment on above: Performed By: #### P T, PTT, AMYL, CMP, LIPA, PHOS ####[place] [address]#### TRANSF ####[place] [phone] Creatinine 0.55 mg/dL Low 0.70-1.40 [facility] [place] Comment on above: Performed By: #### P T, PTT, AMYL, CMP, LIPA, PHOS ####[place] [address]#### TRANSF ####[place] [phone] eGFR (non-black) mL/min/{1.73_m2} Normal >60 [facility] Comment on above: Performed By: #### P T, PTT, AMYL, CMP, LIPA, PHOS ####[place] [phone]#### TRANSF ####[place] [phone] Glucose mass conc 123 mg/dL High 65-100 [facility] [place] Comment on above: Performed By: #### P T, PTT, AMYL, CMP, LIPA, PHOS ####[place] [address]#### TRANSF ####[place] [phone] Potassium molar conc 4.1 mmol/L Normal 3.5-5.0 [facility] Comment on above: Performed By: #### P T, PTT, AMYL, CMP, LIPA, PHOS ####[place] [address]#### TRANSF ####[place] [phone] Sodium 139 mmol/L Normal 135-146 [facility] [place] Comment on above: Performed By: #### P T, PTT, AMYL, CMP, LIPA, PHOS ####[place] [address]#### TRANSF ####[place] [phone] Urea nitrogen 10 mg/dL Normal 10-25 [facility] [place] Comment on above: Performed By: #### P T, PTT, AMYL, CMP, LIPA, PHOS ####[address]#### TRANSF ####[phone] Magnesiumon 08-23-2017 Magnesium 2.3 mg/dL Normal 1.7-2.6 [facility] [place] Comment on above: Performed By: #### P T, PTT, AMYL, CMP, LIPA, PHOS ####[facility] [place] [place], [place] [phone]#### TRANSF ####[facility] [address] [place], [place] [phone] PROGRESSon 08-23-2017 PROGRESS HNO ID: [id number] thor: Jose Damon: General SurgeryAuthor Type: PhysicianType: Progress NotesFiled: 08/23/2017 1:57 PMNote Text:PROGRESS NOTES - SURGICAL SERVICESPATIENT NAME: Rocio JacksonMarisa: [id number] HISTORY OF PRESENT ILLNESS:No acute events overnight. Pain well controlled. No nausea or vomiting.Tolerating diet. Passing flatus, had a BM. PTHC at the gravity (1.9L/3S)PHYSICAL EXAM:BP 118/66 Pulse 71 Temp 36.9 ?C (98.5 ?F) (Oral) Resp 17 Ht 172.7cm (5' 8 ) Wt 87.1 kg (192 lb) SpO2 97% BMI 29.19 kg/m2Body mass index is 29.19 kg/(m2).GENERAL: Alert and oriented, no acute distress, cooperative.CARDIAC: regular rate and rythmLUNGS: Non labored breathingABDOMEN: soft, non tender, non distended. PTHC at the gravity (billious)CBC, Coags, BMP, Mg, PhosRecent Labs 08/22/1803WBC -- 5.23 5.64 --HB -- 8.1* 8.9* --HCT -- 25.0* 27.9* --PLT -- 354 380 --NA 139 139 -- --K 4.1 3.7 -- --CHLOR 104 105 -- --CO2 25 25 -- --BUN 10 8* -- --CREAT 0.55* 0.57* -- --GLUC 123* 111* -- --CA 7.7* 7.7* -- --MG 2.3 2.3 -- 2.2P 2.4* 2.6 -- 2.9Liver Function, Amylase, AND LipaseIntake/Output Summary (Last 24 hours) at 08/23/17 0916Last data filed at 08/23/17 0645 Gross per 24 hourIntake 1350 mlOutput 1955 mlNet -605 mlSURGERY/PROCEDURE:Procedur e(s) and Anesthesia Type: * ANESTHESIA FOR NON-INVASIVE IMAGING OR RADIATION THERAPY - Choice -Anesthesia ConsultASSESSMENT AND PLAN:62 year old male with 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 S/p?PTHC placement??-Diet: FLD?and supplements, f/u on nutrition recs-Pain: Controlled w oral/IV pain meds-Mancilla: No Continued Need For Mancilla Catheterization-DVT Prophylaxis: SubQ Heparin + Intermittent pneumatic compression device(IPCD)-Antibiotics: On zosyn-Activity: out of bedx3- Strict I/Os- Discuss to DC ROMINA (at the bulb suction) and keep PTHC at the gravity- CM for home drain management-Dispo: Continue inpatient admissionSIGNATURE: Rickysami Christian MDDATE: August 23, 2017TIME: 9:16 AMPatient has no pain.PTC drainage has continued to increase, to about 2L over the past 24hours, and there is bile staining on the gauze around it. This suggestsworsening duodenal obstruction.Will remove the ROMINA today as it remains serosang.Other drain to stay as it is bile tinged.Plan per Dr. Jolley as he returns tomorrow.Patient remains clinically stable.Jose Manning MDFebruary 2017 1:57 PM Normal [facility] [place] Phosphoruson 08-23-2017 Phosphate 2.4 mg/dL Low 2.5-4.5 [facility] [place] Comment on above: Performed By: #### P T, PTT, AMYL, CMP, LIPA, PHOS ####[facility] [place] [place] [phone]#### TRANSF ####[facility] [address] [place] [phone] Basic Metabolic Panlon 08-22 Anion gap 9 mmol/L Normal 9-18 [facility] [place] Comment on above: Performed By: #### P T, PTT, AMYL, CMP, LIPA, PHOS ####[place] [address]#### TRANSF ####[place] [phone] Calcium 7.7 mg/dL Low 8.5-10.5 [facility] [place] Comment on above: Performed By: #### P T, PTT, AMYL, CMP, LIPA, PHOS ####[place] [address]#### TRANSF ####[place] [phone] Chloride 105 mmol/L Normal 98-110 [facility] [place] Comment on above: Performed By: #### P T, PTT, AMYL, CMP, LIPA, PHOS ####[place] [address]#### TRANSF ####[place] [phone] CO2 25 mmol/L Normal 23-32 [facility] [place] Comment on above: Performed By: #### P T, PTT, AMYL, CMP, LIPA, PHOS ####[place] [address]#### TRANSF ####[place] [phone] Creatinine 0.57 mg/dL Low 0.70-1.40 [facility] [place] Comment on above: Performed By: #### P T, PTT, AMYL, CMP, LIPA, PHOS ####[place] [address]#### TRANSF ####[address], [place] [phone] eGFR (non-black) mL/min/{1.73_m2} Normal >60 [facility] Comment on above: Performed By: #### P T, PTT, AMYL, CMP, LIPA, PHOS ####[place] [phone]#### TRANSF ####[place] [phone] Glucose mass conc 111 mg/dL High 65-100 [facility] [place] Comment on above: Performed By: #### P T, PTT, AMYL, CMP, LIPA, PHOS ####[place] [address]#### TRANSF ####[place] [phone] Potassium molar conc 3.7 mmol/L Normal 3.5-5.0 [facility] Comment on above: Performed By: #### P T, PTT, AMYL, CMP, LIPA, PHOS ####[place] [address]#### TRANSF ####[place] [phone] Sodium 139 mmol/L Normal 135-146 [facility] [place] Comment on above: Performed By: #### P T, PTT, AMYL, CMP, LIPA, PHOS ####[place] [address]#### TRANSF ####[place] [phone] Urea nitrogen 8 mg/dL Low 10-25 [facility] [place] Comment on above: Performed By: #### P T, PTT, AMYL, CMP, LIPA, PHOS ####[address]#### TRANSF ####[place] [phone] CBC and Differentialon 08-22 Abs Baso <0.03 Normal <0.11 [facility] [place] Comment on above: Performed By: #### P T, PTT, AMYL, CMP, LIPA, PHOS ####[place] [address]#### TRANSF ####[address] Av[address] [place] [phone] Abs [place] 0.41 k/uL Normal <0.87 [facility] [place] Comment on above: Performed By: #### P T, PTT, AMYL, CMP, LIPA, PHOS ####[place] [address]#### TRANSF ####[place] [phone] Abs Neut 3.57 k/uL Normal 1.45-7.50 [facility] [place] Comment on above: Performed By: #### P T, PTT, AMYL, CMP, LIPA, PHOS ####[place] [address]#### TRANSF ####[place] [phone] Basophils/100 WBC Auto (Bld) 0.2 % Normal [facility] [place] Comment on above: Performed By: #### P T, PTT, AMYL, CMP, LIPA, PHOS ####[place] [address]#### TRANSF ####[place] [phone] DTYPE Auto Diff Normal [facility] [place] Comment on above: Performed By: #### P T, PTT, AMYL, CMP, LIPA, PHOS ####[place] [address]#### TRANSF ####[address] Av[address] [place] [phone] Eosinophils 0.15 10*3/uL Normal <0.46 [facility] [place] Comment on above: Performed By: #### P T, PTT, AMYL, CMP, LIPA, PHOS ####[place] [address]#### TRANSF ####[address] [place] [phone] Eosinophils/100 leukocytes 2.9 % Normal [facility] [place] Comment on above: Performed By: #### P T, PTT, AMYL, CMP, LIPA, PHOS ####[place] [address]#### TRANSF ####[place] [phone] Erythrocyte distribution width Auto Ratio (RBC) 16.1 % High 11.5-15.0 [facility] [place] Comment on above: Performed By: #### P T, PTT, AMYL, CMP, LIPA, PHOS ####[place] [address]#### TRANSF ####[place] [phone] Erythrocytes (RBC) 2.90 10*6/uL Low 4.20-6.00 [facility] Comment on above: Performed By: #### P T, PTT, AMYL, CMP, LIPA, PHOS ####[place] [address]#### TRANSF ####[place] [phone] Hematocrit (HCT) 25.0 % Low 39.0-51.0 [facility] [place] Comment on above: Performed By: #### P T, PTT, AMYL, CMP, LIPA, PHOS ####[place] [phone]#### TRANSF ####[place] [phone] Hemoglobin mass conc (Bld) 8.1 g/dL Low 13.0-17.0 [facility] [place] Comment on above: Performed By: #### P T, PTT, AMYL, CMP, LIPA, PHOS ####[place] [address]#### TRANSF ####[place] [phone] Lymphocytes 1.09 10*3/uL Normal 1.00-4.00 [facility] [place] Comment on above: Performed By: #### P T, PTT, AMYL, CMP, LIPA, PHOS ####[place] [address]#### TRANSF ####[place] [phone] Lymphocytes/100 leukocytes 20.8 % Normal [facility] [place] Comment on above: Performed By: #### P T, PTT, AMYL, CMP, LIPA, PHOS ####[place] [address]#### TRANSF ####[place] [phone] MCH 27.9 pG Normal 26.0-34.0 [facility] [place] Comment on above: Performed By: #### P T, PTT, AMYL, CMP, LIPA, PHOS ####[address]#### TRANSF ####[place] [phone] MCHC mass conc (RBC) 32.4 g/dL Normal 30.5-36.0 [facility] Comment on above: Performed By: #### P T, PTT, AMYL, CMP, LIPA, PHOS ####[place] [address]#### TRANSF ####[place] [phone] MCV 86.2 fL Normal 80.0-100.0 [facility] [place] Comment on above: Performed By: #### P T, PTT, AMYL, CMP, LIPA, PHOS ####[place] [address]#### TRANSF ####[phone] Monocytes/100 leukocytes 7.8 % Normal [facility] [place] Comment on above: Performed By: #### P T, PTT, AMYL, CMP, LIPA, PHOS ####[place] [address]#### TRANSF ####[place] [phone] Neutrophils/100 WBC Auto (Bld) 68.3 % Normal [facility] [place] Comment on above: Performed By: #### P T, PTT, AMYL, CMP, LIPA, PHOS ####[place] [address]#### TRANSF ####[place] [phone] Platelet mean volume (PMV) 9.9 fL Normal 9.0-12.7 [facility] [place] Comment on above: Performed By: #### P T, PTT, AMYL, CMP, LIPA, PHOS ####[place] [address]#### TRANSF ####[place] [phone] Platelets 354 10*3/uL Normal 150-400 [facility] [place] Comment on above: Performed By: #### P T, PTT, AMYL, CMP, LIPA, PHOS ####[facility] [place] [place], [place] [phone]#### TRANSF ####[facility] [place], [place] [phone] WBC (Leukocytes) 5.23 10*3/uL Normal 3.70-11.00 [facility] Comment on above: Performed By: #### P T, PTT, AMYL, CMP, LIPA, PHOS ####[facility] [place] [place], [place] [phone]#### TRANSF ####[facility] [place], [place] [phone] CONSULT PROGon 08-22-2017 CONSULT PROG HNO ID: [id number] thor: Sabrina Michael) PineiroService: Cardiovascular DiseaseAuthor Type: Nurse PractitionerType: Consult Progress NoteFiled: 08/22/2017 2:41 PMNote Text:PROGRESS NOTE CARDIOLOGY SERVICESERVICE DATE: August 22, 2017SERVICE TIME: 2:37 PMASSESSMENT/PLANActive Problems:Paroxysmal Atrial fibrillation. Remains in NSR.Will plan to start eliquis once biliary drains removed.Duodenal mass, obstructive jaundices/p perc drain placement. S/p ERCP with dilatation/stent.-malignancy suspected per notes-General surgery, gastroenterology following?SUBJECTIVEINTERIM HISTORY: Up in chair. Still weak in general but better. Toleratingsmall amounts full liquid diet.No chest pain, dyspnea or dizziness. BP stable.OBJECTIVEPHYSICAL EXAM:BP 115/58 Pulse 76 Temp (Src) 98.7 (Oral) Resp 18 Ht 5' 8 (1.73m) Wt 192 lb (87.1kg) SpO2 98% BMI 29.20 kg/(m2).Pleasant, comfortable, not in acute distress.Awake, alert, oriented times 3.Moves all extremities.NECK: Supple, no JVDLUNGS: Clear to auscultation bilaterally.CARDIAC: PMI present, RRR, S1 and S2, no S3 or S4, no additional heartsounds or murmurs.ABDOMEN: Soft, nontender, bowel sounds present.EXTREMITIES: No edema.PULSES: Peripheral pulses present.MEDICATIONS:Current Facility-Administered Medications:metoprolol tartrate (short acting) 50 mg tab(s) (LOPRESSOR) 50 mg ORAL q12 Hamoxicillin-clavulanate 875 mg oral liquid (AUGMENTIN) 875 mg ORAL q 12 H0.9% NaCl 2-10 mL 2-10 mL INTRAVENOUS q 12 Hinsulin lispro injection (rapid acting) (HumaLOG) SUBCUTANEOUS w MEALSAND HSheparin 5,000 Units injection 5,000 Units SUBCUTANEOUS q 8 Hphenol 1 [place] (CHLORASEPTIC) 1 [place] MUCOUS MEMBRANE (TOPICAL MOUTH ANDTHROAT) q 2 H PRN0.9% NaCl 10 mL 10 mL INTRAVENOUS q 12 H0.9% NaCl 20 mL 20 mL INTRAVENOUS PRNacetaminophen 650 mg tab(s) (TYLENOL) 650 mg ORAL q 6 H PRNoxyCODONE IR 5 mg tab(s) (ROXICODONE) 5 mg ORAL q 4 H PRNiv contrast (radiology procedure) INTRAVENOUS DIRECTED PRNnitroglycerin sublingual 0.4 mg tab(s) (NITROQUICK) 0.4 mg SUBLINGUAL q 5MIN PRNdextrose 40 % 15 g (INSTA-GLUCOSE) 15 g ORAL PRNOrglucagon 1 mg injection (GLUCAGEN) 1 mg INTRAMUSCULAR PRNOrdextrose 50% in water 25 mL syringe 12.5 g INTRAVENOUS PRNaspirin, enteric coated 162 mg tab(s) (ASPIRIN, ENTERIC COATED) 162 mgORAL DAILYHYDROmorphone 0.2 mg injection (DILAUDID) 0.2 mg INTRAVENOUS q 2 H PRNDATA:Diagnostic tests reviewed for today's visit:Most recent labs and imaging results.Most recent EKGTelemetryPast 72 Hour Labs:CBC, Coags, BMP, Mg, PhosRecent Labs 0 0 08/20/1805WBC 5.23 5.64 -- 5.78HB 8.1* 8.9* -- 8.3*HCT 25.0* 27.9* -- 26.0*PLT 354 380 -- 331NA 139 -- -- 141K 3.7 -- -- 3.9CHLOR 105 -- -- 109CO2 25 -- -- 23BUN 8* -- -- 6*CREAT 0.57* -- -- 0.68*GLUC 111* -- -- 117*CA 7.7* -- -- 7.6*MG 2.3 -- 2.2 2.2P 2.6 -- 2.9 2.9Liver Function, Amylase, AND LipaseRecent Labs [id number] 5.3*ALB 2.1*ALT 55*AST 42*ALKPHOS 241*TBILI 0.7SIGNATURE: Sabrina Arango, BJORN PATIENT NAME: Rocio TorresdonnyELBATE: August 22, 2017 : 2:37 PM PAGER/CONTACT #: Normal [facility] Magnesiumon 08-22-2017 Magnesium 2.3 mg/dL Normal 1.7-2.6 [facility] [place] Comment on above: Performed By: #### P T, PTT, AMYL, CMP, LIPA, PHOS ####[facility] [place] [place] [phone]#### TRANSF ####[facility] [address] [place], [place] [phone] NUTRITIONon 08-22-2017 NUTRITION HNO ID: [id number] thor: Alise Segura) BarsaService: Nutrition TherapyAuthor Type: Registered DietitianType: NutritionFiled: 08/22/2017 2:13 PMNote Text:NUTRITION THERAPY PROGRESS NOTESERVICE DATE: 08/22/2017SERVICE TIME: 2:06 PMRECOMMENDED DIAGNOSIS: SEVERE PROTEIN-CALORIE MALNUTRITION per RegisteredDietitian on 08/19NUTRITION CARE PLANIntervention:Diet - Full Liquids - tolerating very wellSupplements - Mighty Shakes TIDEnsure Enlive BID - each to provide 350 kcal and 20 gm proteinMonitor and Evaluation:Goal: Meet >75% of estimated needsMonitor fluid/electrolyte balanceMonitor labs, I/Os, vital signs, weightDischarge Nutrition Recommendations:To be determinedPer HPI: 62 year old male with 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 S/p?PTHC placement??Interval History: -Diet: FLD?and supplementsPt states he ate all Dinner tray and supplements last night and ate allBrk and 2 supplements this amPresent Diet Order: Full LiquidNutritional Intake: <50% estimated energy need over the past 8 day(s)Pt with poor po intake x 1 month from gallbladder issuesPt was having N/V and abdominal painDosing Weight: 87?kgResting Metabolic Rate: 1661Estimated kilocalorie needs: 6536-9773?kilocalories determined by25-28?kcal/kgEstimated protein needs:113 - ?130?grams determined by1.3-1.5?g/kg?Dosing?weight Estimated fluid needs: 2200 - 2400?milliliters based on 1 mL per kcalAdmission Weight: 87.4 kg (192 lb 9.6 oz)Current Weight: 87.1 kg (192 lb)Body mass index is 29.19 kg/(m2). overweightWt loss noted from 205-192#Weight has decreased by 13#?over 2?weeks?representing 6.3?% weight changeALLERGIESNo Known AllergiesCurrent Facility-Administered Medications:metoprolol tartrate (short acting) 50 mg tab(s) (LOPRESSOR) 50 mg ORAL q12 Hamoxicillin-clavulanate 875 mg oral liquid (AUGMENTIN) 875 mg ORAL q 12 H0.9% NaCl 2-10 mL 2-10 mL INTRAVENOUS q 12 Hinsulin lispro injection (rapid acting) (HumaLOG) SUBCUTANEOUS w MEALSAND HSheparin 5,000 Units injection 5,000 Units SUBCUTANEOUS q 8 Hphenol 1 [place] (CHLORASEPTIC) 1 [place] MUCOUS MEMBRANE (TOPICAL MOUTH ANDTHROAT) q 2 H PRN0.9% NaCl 10 mL 10 mL INTRAVENOUS q 12 H0.9% NaCl 20 mL 20 mL INTRAVENOUS PRNacetaminophen 650 mg tab(s) (TYLENOL) 650 mg ORAL q 6 H PRNoxyCODONE IR 5 mg tab(s) (ROXICODONE) 5 mg ORAL q 4 H PRNiv contrast (radiology procedure) INTRAVENOUS DIRECTED PRNnitroglycerin sublingual 0.4 mg tab(s) (NITROQUICK) 0.4 mg SUBLINGUAL q 5MIN PRNdextrose 40 % 15 g (INSTA-GLUCOSE) 15 g ORAL PRNOrglucagon 1 mg injection (GLUCAGEN) 1 mg INTRAMUSCULAR PRNOrdextrose 50% in water 25 mL syringe 12.5 g INTRAVENOUS PRNaspirin, enteric coated 162 mg tab(s) (ASPIRIN, ENTERIC COATED) 162 mgORAL DAILYHYDROmorphone 0.2 mg injection (DILAUDID) 0.2 mg INTRAVENOUS q 2 H PRNIntake/Output 08/18/17 0700 - 08/19/17 0659 08/19/17 0700 - 08/20/17 0659 700 - 08/21/17 0659 08/21/17 0700 - 08/22/17 0659 08/22/17 0700 -08/23/17 0659 Intake (ml) 3402 2292 384 -- 605 Output (ml) 1256 1125 2546 2217 795 Net (ml) 2146 1167 -2162 -2217 -190Surgical Incision 08/14/17 0103 Abdomen - Laparoscopy Sites (Active)Dressing Status None: Open to Air 08/22/2017 9:30 AMIncision Closures Topical Skin Adhesive 08/22/2017 9:30 AMDrainage Description None 08/22/2017 9:30 AMDrainage Amount None 08/22/2017 9:30 AMEdges Intact 08/22/2017 9:30 AMHematoma No 08/22/2017 9:30 AMNumber of days:8MNT Billing Type: Re-assess/15 min 3 unitsSIGNATURE: Alise Lopez RD, LD PATIENT NAME: Rocio JacksonDATE: August 22, 2017 : 2:06 PM PAGER: For further assistance and weekends please page theGroup Pager -[phone] [facility] PROGRESSon 08-22-2017 PROGRESS HNO ID: [id number] thor: Jose Damon: General SurgeryAuthor Type: PhysicianType: Progress NotesFiled: 08/22/2017 3:31 PMNote Text:PROGRESS NOTES - SURGICAL SERVICESPATIENT NAME: Rocio JacksonMRN: [id number] HISTORY OF PRESENT ILLNESS:No acute events overnight. Pain well controlled. No nausea or vomiting.Tolerating diet. Passing flatus, had a BM. PTHC at the gravity (1.2L/3S)PHYSICAL EXAM:BP 121/71 Pulse 71 Temp 36.8 ?C (98.3 ?F) (Oral) Resp 18 Ht 172.7cm (5' 8 ) Wt 87.1 kg (192 lb) SpO2 95% BMI 29.19 kg/m2Body mass index is 29.19 kg/(m2).GENERAL: Alert and oriented, no acute distress, cooperative.CARDIAC: regular rate and rythmLUNGS: Non labored breathingABDOMEN: soft, non tender, non distended.CBC, Coags, BMP, Mg, PhosRecent Labs 08/21/1808WBC 5.23 5.64 -- 5.78HB 8.1* 8.9* -- 8.3*HCT 25.0* 27.9* -- 26.0*PLT 354 380 -- 331NA 139 -- -- 141K 3.7 -- -- 3.9CHLOR 105 -- -- 109CO2 25 -- -- 23BUN 8* -- -- 6*CREAT 0.57* -- -- 0.68*GLUC 111* -- -- 117*CA 7.7* -- -- 7.6*MG 2.3 -- 2.2 2.2P 2.6 -- 2.9 2.9Liver Function, Amylase, AND LipaseRecent Labs TPROT 5.3*ALB 2.1*ALT 55*AST 42*ALKPHOS 241*TBILI 0.7Intake/Output Summary (Last 24 hours) at 08/22/17 0818Last data filed at 08/22/17 0742 Gross per 24 hourIntake 0 mlOutput 2387 mlNet -2387 mlSURGERY/PROCEDURE:Procedur e(s) and Anesthesia Type: * ANESTHESIA FOR NON-INVASIVE IMAGING OR RADIATION THERAPY - Choice -Anesthesia ConsultASSESSMENT AND PLAN:62 year old male with 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 S/p PTHC placement?-Diet: FLD and supplements, f/u on nutrition recs-Pain: Controlled w oral/IV pain meds-Mancilla: No Continued Need For Mancilla Catheterization-DVT Prophylaxis: SubQ Heparin + Intermittent pneumatic compression device(IPCD)-Antibiotics: On zosyn-Activity: out of bedx3- Strict I/Os- Will discuss to DC ROMINA (at the bulb suction) and cap to [facility]- for home drain management-Dispo: Continue inpatient admissionSIGNATURE: Kayleen Gonzales, MDDATE: August 22, 2017TIME: 8:18 AMPatient denies any abdominal pain. Still gets full with only liquids.ROMINA serosang, no bileOther biloma drain bile tinged, but SS.PTC increased output to 1.2L? only temporary success to duodenal dilation.Will watch PTC output.Possible DC soon.Jose Manning MDFeuary 2017 3:31 PM Normal [facility] Phosphoruson 08-22-2017 Phosphate 2.6 mg/dL Normal 2.5-4.5 [facility] Comment on above: Performed By: #### P T, PTT, AMYL, CMP, LIPA, PHOS ####[facility] [place] [place], [place] [phone]#### TRANSF ####[facility] [address] [place], [place] [phone] CASE MANAGEMon 08-21-2017 CASE MANAGEM HNO ID: [id number] thor: Alexandrea (Kevin) Thom, RNService: Care ManagementAuthor Type: Registered NurseType: Care Mgt Progress NoteFiled: 08/21/2017 3:26 PMNote Text:CARE MANAGEMENT PROGRESS NOTESERVICE DATE: 08/21/2017SERVICE TIME: 10:02 AM LOS: 8 daysNeeds Prior to Discharge: To Be Determined;OT/PT EvaluationPer discussion with Dr Duffy.HHC is planned at hi.PT OT evals are needed, pt may also need Home PT OT.[facility] accepted pt for drain care.Pt will stay with his sister. Briana Muller at hi.[address] [facility] [place] [address]Hqssoqrve HHC was notified.[facility] for SN PT OT is planned.[facility] was updated.SIGNATURE: Alexandrea Tomas RN PATIENT NAME: Rocio FrischDATE: August 21, 2017 : 10:01 AM PAGER/CONTACT #: [phone] Normal [facility] CBC and Differentialon 08-21 Abs Baso <0.03 Normal <0.11 [facility] [place] Comment on above: Performed By: #### P T, PTT, AMYL, CMP, LIPA, PHOS ####[place] [address]#### TRANSF ####[place] [phone] Abs [place] 0.43 k/uL Normal <0.87 [facility] Comment on above: Performed By: #### P T, PTT, AMYL, CMP, LIPA, PHOS ####[place] [address]#### TRANSF ####[place] [phone] Abs Neut 4.17 k/uL Normal 1.45-7.50 [facility] Comment on above: Performed By: #### P T, PTT, AMYL, CMP, LIPA, PHOS ####[place] [address]#### TRANSF ####[place] [phone] Basophils/100 WBC Auto (Bld) 0.4 % [facility] Comment on above: Performed By: #### P T, PTT, AMYL, CMP, LIPA, PHOS ####[place] [address]#### TRANSF ####[place] [phone] DTYPE Auto Diff Normal [facility] Comment on above: Performed By: #### P T, PTT, AMYL, CMP, LIPA, PHOS ####[place] [address]#### TRANSF ####[place] [phone] Eosinophils 0.18 10*3/uL Normal <0.46 [facility] Comment on above: Performed By: #### P T, PTT, AMYL, CMP, LIPA, PHOS ####[place] [address]#### TRANSF ####[place] [phone] Eosinophils/100 leukocytes 3.2 % Normal [facility] Comment on above: Performed By: #### P T, PTT, AMYL, CMP, LIPA, PHOS ####[place] [address]#### TRANSF ####[place] [phone] Erythrocyte distribution width Auto Ratio (RBC) 15.9 % High 11.5-15.0 [facility] Comment on above: Performed By: #### P T, PTT, AMYL, CMP, LIPA, PHOS ####[place] [address]#### TRANSF ####[place] [phone] Erythrocytes (RBC) 3.16 10*6/uL Low 4.20-6.00 [facility] Comment on above: Performed By: #### P T, PTT, AMYL, CMP, LIPA, PHOS ####[place] [address]#### TRANSF ####[place] [phone] Hematocrit (HCT) 27.9 % Low 39.0-51.0 [facility] Comment on above: Performed By: #### P T, PTT, AMYL, CMP, LIPA, PHOS ####[place] [address]#### TRANSF ####[place] [phone] Hemoglobin mass conc (Bld) 8.9 g/dL Low 13.0-17.0 [facility] Comment on above: Performed By: #### P T, PTT, AMYL, CMP, LIPA, PHOS ####[place] [address]#### TRANSF ####[place] [phone] Lymphocytes 0.84 10*3/uL Low 1.00-4.00 [facility] Comment on above: Performed By: #### P T, PTT, AMYL, CMP, LIPA, PHOS ####[place] [address]#### TRANSF ####[place] [phone] Lymphocytes/100 leukocytes 14.9 % Normal [facility] Comment on above: Performed By: #### P T, PTT, AMYL, CMP, LIPA, PHOS ####[place] [address]#### TRANSF ####[place] [address] MCH 28.2 pG Normal 26.0-34.0 [facility] Comment on above: Performed By: #### P T, PTT, AMYL, CMP, LIPA, PHOS ####[place] [address]#### TRANSF ####[place] [phone] MCHC mass conc (RBC) 31.9 g/dL Normal 30.5-36.0 [facility] Comment on above: Performed By: #### P T, PTT, AMYL, CMP, LIPA, PHOS ####[place] [address]#### TRANSF ####[place] [phone] MCV 88.3 fL Normal 80.0-100.0 [facility] Comment on above: Performed By: #### P T, PTT, AMYL, CMP, LIPA, PHOS ####[place] [address]#### TRANSF ####[place] [address] Monocytes/100 leukocytes 7.6 % Normal [facility] Comment on above: Performed By: #### P T, PTT, AMYL, CMP, LIPA, PHOS ####[place] [address]#### TRANSF ####[place] [address] Neutrophils/100 WBC Auto (Bld) 73.9 % Normal [facility] Comment on above: Performed By: #### P T, PTT, AMYL, CMP, LIPA, PHOS ####[place] [address]#### TRANSF ####[place] [phone] Platelet mean volume (PMV) 10.1 fL Normal 9.0-12.7 [facility] Comment on above: Performed By: #### P T, PTT, AMYL, CMP, LIPA, PHOS ####[place] [address]#### TRANSF ####[place] [phone] Platelets 380 10*3/uL Normal 150-400 [facility] Comment on above: Performed By: #### P T, PTT, AMYL, CMP, LIPA, PHOS ####[facility] [place], [place] [phone]#### TRANSF ####[facility] [place], [place] [phone] WBC (Leukocytes) 5.64 10*3/uL Normal 3.70-11.00 [facility] Comment on above: Performed By: #### P T, PTT, AMYL, CMP, LIPA, PHOS ####[place] [id number] [place], [place] [phone]#### TRANSF ####[facility] [place], [place] [phone] CONSULT PROGon 08-21-2017 CONSULT PROG HNO ID: [id number] thor: Jessee Lottervice: Cardiovascular DiseaseAuthor Type: PhysicianType: Consult Progress NoteFiled: 08/22/2017 11:03 AMNote Text:PROGRESS NOTE CARDIOLOGY SERVICESERVICE DATE: August 21, 2017SERVICE TIME: 2:42 PMASSESSMENT/PLANActive Problems:Paroxysmal Atrial fibrillation. Currently in NSR.-patient had AF 10/2016, treated with Amiodarone for several months.Multiple surgical procedures since current admission.Spoke to Dr. Duffy yesterday. Ok to start NOAC from his standpoint.Plan:Discussed with Dr. Cerda. Anti arrhythmic therapy not recommended at thistime.Increase Metoprolol to 50 BIDDr. Prashant agrees with initiation of eliquis. Patient still with multipleabdominal drains. Re-evaluate tomorrow.Duodenal mass, obstructive jaundices/p perc drain placement. S/p ERCP with dilatation. Subsequent stent.-malignancy suspected per notes-General surgery, gastroenterology followingAs aboveDiscussed with pt family cardiac statusekgThanks.Jessee Mayorga MD?SUBJECTIVEINTERIM HISTORY: No chest pain or dyspnea. No palpitations or dizziness.Telemetry NSR. Few short bursts Afib.Taking in full liquid diet.OBJECTIVEPHYSICAL EXAM:BP 117/73 Pulse 73 Temp (Src) 98.8 (Oral) Resp 20 Ht 5' 8 (1.73m) Wt 192 lb (87.1kg) SpO2 96% BMI 29.20 kg/(m2).Pleasant, comfortable, not in acute distress.Awake, alert, oriented times 3.Moves all extremities.NECK: Supple, no JVDLUNGS: Clear to auscultation bilaterally.CARDIAC: PMI present, RRR, S1 and S2, no S3 or S4, no additional heartsounds or murmurs.ABDOMEN: Soft, nontender, bowel sounds present.EXTREMITIES: No edema.PULSES: Peripheral pulses present.MEDICATIONS:Current Facility-Administered Medications:amoxicillin-clav ulanate 875 mg oral liquid (AUGMENTIN) 875 mg ORAL q 12 H0.9% NaCl 2-10 mL 2-10 mL INTRAVENOUS q 12 Hinsulin lispro injection (rapid acting) (HumaLOG) SUBCUTANEOUS w MEALSAND HSheparin 5,000 Units injection 5,000 Units SUBCUTANEOUS q 8 Hphenol 1 [place] (CHLORASEPTIC) 1 [place] MUCOUS MEMBRANE (TOPICAL MOUTH ANDTHROAT) q 2 H PRNmetoprolol tartrate (short acting) 25 mg tab(s) (LOPRESSOR) 25 mg ORAL q 8H0.9% NaCl 10 mL 10 mL INTRAVENOUS q 12 H0.9% NaCl 20 mL 20 mL INTRAVENOUS PRNacetaminophen 650 mg tab(s) (TYLENOL) 650 mg ORAL q 6 H PRNoxyCODONE IR 5 mg tab(s) (ROXICODONE) 5 mg ORAL q 4 H PRNiv contrast (radiology procedure) INTRAVENOUS DIRECTED PRNnitroglycerin sublingual 0.4 mg tab(s) (NITROQUICK) 0.4 mg SUBLINGUAL q 5MIN PRNdextrose 40 % 15 g (INSTA-GLUCOSE) 15 g ORAL PRNOrglucagon 1 mg injection (GLUCAGEN) 1 mg INTRAMUSCULAR PRNOrdextrose 50% in water 25 mL syringe 12.5 g INTRAVENOUS PRNaspirin, enteric coated 162 mg tab(s) (ASPIRIN, ENTERIC COATED) 162 mgORAL DAILYHYDROmorphone 0.2 mg injection (DILAUDID) 0.2 mg INTRAVENOUS q 2 H PRNDATA:Diagnostic tests reviewed for today's visit:Most recent labs and imaging results.Most recent EKGTelemetryPast 72 Hour Labs:CBC, Coags, BMP, Mg, PhosRecent Labs 02/08/21/1804WBC 5.64 -- 5.78 6.57HB 8.9* -- 8.3* 8.8*HCT 27.9* -- 26.0* 27.7*PLT 380 -- 331 344NA -- -- 141 142K -- -- 3.9 3.4*CHLOR -- -- 109 108CO2 -- -- 23 23BUN -- -- 6* 7*CREAT -- -- 0.68* 0.58*GLUC -- -- 117* 144*CA -- -- 7.6* 7.6*MG -- 2.2 2.2 2.2P -- 2.9 2.9 1.9*Liver Function, Amylase, AND LipaseRecent Labs 08/19/1804TPROT 5.3* 5.6*ALB 2.1* 2.5*ALT 55* 53*AST 42* 27ALKPHOS 241* 249*TBILI 0.7 0.9SIGNATURE: Sabrina Arango CNP PATIENT NAME: Rocio JacksonDATE: August 21, 2017 : 2:42 PM PAGER/CONTACT #: [facility] CONSULT PROG HNO ID: [id number] thor: Linda ([facility]) MacangaService: GastroenterologyAuthor Type: Nurse PractitionerType: Consult Progress NoteFiled: 08/21/2017 2:25 PMNote Text:CONSULT PROGRESS NOTESERVICE DATE: 08/21/2017SERVICE TIME: 9:35 AMCONSULTING SERVICE: GISubjectiveINTERVAL HPI: No acute events overnight. Tolerating diet. No abdominalpain.Current hospital medications:amoxicillin-clav ulanate 875 mg oral liquid (AUGMENTIN) 875 mg ORAL q 12 H0.9% NaCl 2-10 mL 2-10 mL INTRAVENOUS q 12 Hinsulin lispro injection (rapid acting) (HumaLOG) SUBCUTANEOUS w MEALSAND HSheparin 5,000 Units injection 5,000 Units SUBCUTANEOUS q 8 Hphenol 1 [place] (CHLORASEPTIC) 1 [place] MUCOUS MEMBRANE (TOPICAL MOUTH ANDTHROAT) q 2 H PRNmetoprolol tartrate (short acting) 25 mg tab(s) (LOPRESSOR) 25 mg ORAL q 8H0.9% NaCl 10 mL 10 mL INTRAVENOUS q 12 H0.9% NaCl 20 mL 20 mL INTRAVENOUS PRNacetaminophen 650 mg tab(s) (TYLENOL) 650 mg ORAL q 6 H PRNoxyCODONE IR 5 mg tab(s) (ROXICODONE) 5 mg ORAL q 4 H PRNiv contrast (radiology procedure) INTRAVENOUS DIRECTED PRNnitroglycerin sublingual 0.4 mg tab(s) (NITROQUICK) 0.4 mg SUBLINGUAL q 5MIN PRNdextrose 40 % 15 g (INSTA-GLUCOSE) 15 g ORAL PRNglucagon 1 mg injection (GLUCAGEN) 1 mg INTRAMUSCULAR PRNdextrose 50% in water 25 mL syringe 12.5 g INTRAVENOUS PRNaspirin, enteric coated 162 mg tab(s) (ASPIRIN, ENTERIC COATED) 162 mgORAL DAILYHYDROmorphone 0.2 mg injection (DILAUDID) 0.2 mg INTRAVENOUS q 2 H PRNObjectivePHYSICAL EXAM:Physical Exam Performed:GENERAL: Alert, no distress, cooperativeABDOMEN: Abdomen soft, non-tender, BS normal, No masses or organomegalyBP 114/71 Pulse 71 Temp (Src) 98.8 (Oral) Resp 18 Ht 5' 8 (1.73m) Wt 192 lb (87.1kg) SpO2 93% BMI 29.20 kg/(m2).DATA:Diagnostic tests reviewed for today's visit:Most recent labs and imaging results.Impression/Recommend atraghuMr. Jackson is a 62 year old male with a history notable for PAFib not onanticoag as outpt,?CAD s/p PCI?x2 2013, type 2 DM on metformin, HTN,glaucoma. He underwent lap richelle for ?cholecystitis at OSH on 08/11 whichwas c/b bile leak. Attempt at OSH ERCP showed?an?ulcerated mass injunction of D1/D2, no visualization of ampulla; bx pending of duodenalmass. 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 - dilated.PTC done 08/18Tolerating diet, no pain?Plan:-would not proceed with further intervention given tolerating diet andfeeling well-continue GI soft diet-encouraged increased PO intake to meet nutritional needs, currently onsupplements-if not getting enough nutrition PO, can consider endoscopic placement ofcorpak for supplementation-would recommend DC to rehab for assistance with strengthening andnutritional support?Linda Avalos CNPSnoqualmie [facility]?Thank you for allowing us to participate in the care of this patient.Please call with questions or concerns.SIGNATURE: Linda Avalos CNP PATIENT NAME: Rocio JacksonDATE: August 21, 2017 : 9:34 AM PAGER: [phone] Normal [facility] Magnesiumon 08-21-2017 Magnesium 2.2 mg/dL Normal 1.7-2.6 [facility] Comment on above: Performed By: #### P T, PTT, AMYL, CMP, LIPA, PHOS ####[facility] [place], [place] [phone]#### TRANSF ####[facility] [address] [place], [place] [phone] PROGRESSon 08-21-2017 PROGRESS HNO ID: [id number] thor: Khadar Guo: General SurgeryAuthor Type: PhysicianType: Progress NotesFiled: 08/21/2017 6:50 PMNote Text:PROGRESS NOTES - SURGICAL SERVICESPATIENT NAME: Rocio JacksonMRN: [id number] HISTORY OF PRESENT ILLNESS:Got PTHC on 08/19. No acute events overnight. Pain well controlled. Nonausea or vomiting. Poor PO intake.PHYSICAL EXAM:BP 114/71 Pulse 71 Temp 37.1 ?C (98.8 ?F) (Oral) Resp 18 Ht 172.7cm (5' 8 ) Wt 87.1 kg (192 lb) SpO2 93% BMI 29.19 kg/m2Body mass index is 29.19 kg/(m2).GENERAL: Alert and oriented, no acute distress, cooperative.CARDIAC: regular rate and rythmLUNGS: Non labored breathingABDOMEN: soft, non= tender, non distended.WOUND: clean, dry and intactCBC, Coags, BMP, Mg, PhosRecent Labs 0208/20/1805WBC -- 5.78 6.57HB -- 8.3* 8.8*HCT -- 26.0* 27.7*PLT -- 331 344NA -- 141 142K -- 3.9 3.4*CHLOR -- 109 108CO2 -- 23 23BUN -- 6* 7*CREAT -- 0.68* 0.58*GLUC -- 117* 144*CA -- 7.6* 7.6*MG 2.2 2.2 2.2P 2.9 2.9 1.9*Liver Function, Amylase, AND LipaseRecent Labs 08/19/1804TPROT 5.3* 5.6*ALB 2.1* 2.5*ALT 55* 53*AST 42* 27ALKPHOS 241* 249*TBILI 0.7 0.9Intake/Output Summary (Last 24 hours) at 08/21/17 0818Last data filed at 08/21/17 0500 Gross per 24 hourIntake 384 mlOutput 2181 mlNet -1797 mlSURGERY/PROCEDURE:Procedur e(s) and Anesthesia Type: * ANESTHESIA FOR NON-INVASIVE IMAGING OR RADIATION THERAPY - Choice -Anesthesia ConsultASSESSMENT AND PLAN:62 year old male with 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 S/p PPD-2 PTHC placement-Diet: FLD and supplements, f/u on nutrition recs-Pain: Controlled w oral/IV pain meds-[place]: No Continued Need For [place] Catheterization-DVT Prophylaxis: SubQ Heparin + Intermittent pneumatic compression device(IPCD)-Antibiotics: On zosyn-Activity: out of bedx3- Strict I/Os-JPs to bulb suction and PTHC to gravity: decreased PTHC o/p, slightlyincrease o/p from RL romina-May try capping PTHC- CM for home drain management-Dispo: Continue inpatient admissionKAEL HERNANDEZ MD (Res)General SurgeryPager: [phone]*On weekends or nights (after 1800) please contact the surgery on callpager.*Att: As above. Hopeful for home on full liquids/protein shakestomorrow.Consider dc of ROMINA drain before DC.PtC must be kept to gravity since it could not be advanced to duodenum.Outpt f/u with Dr Jolley as soon as available.Khadar Duffy MDFebruary 2017 6:50 PM Normal [facility] Phosphoruson 08-21-2017 Phosphate 2.9 mg/dL Normal 2.5-4.5 [facility] Comment on above: Performed By: #### P T, PTT, AMYL, CMP, LIPA, PHOS ####[facility] [place], [place] [phone]#### TRANSF ####[facility] [address] [place], [place] [phone] THERAPY NTon 08-21-2017 THERAPY NT HNO ID: [id number] thor: Sujata (Pt) PapcunService: Physical TherapyAuthor Type: Physical TherapistType: Therapy (PT/OT/Speech/Resp)Filed: 08/21/2017 2:10 PMNote Text:Physical Therapy EvaluationSERVICE DATE: 08/21/2017SERVICE TIME: 1255 to 1320ROOM: [place] [address] ( OPERATING ROOM)Recommended Discharge Disposition: Home PTAnticipated Discharge Needs: Physical Assist at HomePhysical Assist at Home for: Cleaning;Laundry;Meals;Stair s;SelfCare;Shopping;Transpor tationRecommended Discharge Equipment: Wheeled WalkerPT Recommendations to Nursing: Ambulate with device using gait belt;Tobathroom using gait belt;In halls using gait belt;OOB for Meals using gaitbelt;With assist of 1 personDevice: Wheeled WalkerPT 6 Clicks Score: 19Precautions/Activity Restrictions: Fall Risk;Bed/ChairAlarm;Lines/Tu bes/DrainsASSESSMENT : 62 yo patient admitted to the hospital for duodenal mass.S/p R PTHC and Int/Ext biliary drain. Patient's pertinent PMHx includesDM, glaucoma; HTN; MD; s/p MD; 2 stents. Patient's impairments as relatedto Physical Therapy include decreased strength, impaired balance and trunkcontrol, and impaired safety with functional mobility. Patient hassupport from family; pt stated sister can assist him upon discharge andplans to stay at sister's house; bedroom 1st floor. Patient will continueto require skilled Physical Therapy to improve balance, strength, andtrunk control in order to improve safety and independence with functionalmobility. Recommend [facility] PT with pt's approval.Tolerance Limited By Pain;FatiguePhysical Therapy Problem List: Pain;Decreased Activity Tolerance;DecreasedStrength; Functional Mobility Impairment;Balance ImpairedPatient /Caregiver Goals: Other: See Comment (to stay at sister's houseafter discharge.)Goals for Plan of Care:Able to perform HEP with: IndependentRolling with: Modified IndependentTransfer supine to/from sit with: Modified IndependentTransfer sit to/from stand with: Modified IndependentAmbulate with: Modified IndependentDistance: 200'Device: Wheeled WalkerAmbulate up and down steps with: Modified IndependentNumber of steps: 4Device: RailProgress Toward Goals: Progressing as expectedRehab Potential: GoodPLAN:Treatment Frequency (times per week): 2 (and 2prn visits.) Current admissionTreatment Interventions: Functional MobilityTraining;Strengtheni ng;Education;Balance Training;Self Care / HomeManagementPlan of Care developed with: PatientTREATMENT INTERVENTIONS:Therapy Diagnosis: Reduced mobility-other;Muscle Weakness (generalized)Interventions Provided: Evaluation;Gait Training (62112)$ Evaluation-Low (44090) Billed Units: 1 unitGait Training (50249) Treatment Minutes: 101 unitSkilled Intervention(s): Instruction in sit to stand technique with properhand placement and body positioning at edge of bed/chair, Instruction instand to sit technique with LE's touching chair/bed and reaching back forsurface and using a wheeled walker for balance support. Breathing cuesgiven. Educated in bed mobility skills. Issued LE seated HEP andinstructed to pt; cues given for tempo; explained benefits of the LEexercises.Total Timed Code Treatment Minutes: 10Total Treatment Time (minutes): 25FUNCTIONAL G CODE:PT 6 Clicks Score: 19 (08/21/17 1255)Mobility: Walking and Moving Around Current Status (G8978): CK ()Mobility: Walking and Moving Around Goal Status (G8979): CJ ()Based on clinical assessment and the score on the 6 Clicks FunctionalAssessment Tool, the G code and corresponding severity modifiers aredocumented above.SUBJECTIVE:Current Hospital Course: Chart reviewed; R PTHC and Int/Ext biliarydrain; duodenal mass.Patient Report: R side abdominal pain. Denied numb/tingling; chest painor headache.Home EnvironmentPatient Lives With: Family (with daughter and son;2 floor house)Assistance Available: PRNEntry To Home: Stairs;Without RailNumber Of Stairs Into Home: 2Number Of Stairs To Bed/Bath: 0 (1st floor living)Tub/Shower Type: walk in showerLaundry: dtr does house chores.Equipment Owned: (sister has std walker and cane that pt can borrow.)Prior Functional Level: Required AssistanceAssistance Required With: Cleaning;Laundry;Meals;Shopp ingPrior Functional Level Comments: pt drives; works;indep ambul without asstdevice.OBJECTIVE:CURRENT FUNCTIONAL STATUS:Current Functional Mobility Assist Level Additional InformationRolling Verbal Cues OnlySupine to Sit Contact Guard AssistanceSit to SupineScooting Contact Guard AssistanceSit to Stand Contact Guard AssistanceStand to Sit Contact Guard AssistanceBed to ChairToilet/CommodeGait Contact Guard Assistance Gait Device: Wheeled Walker Gait Distance (feet): 110'StairsCurb StepCar TransferGeneral Gait Deviations: Anushka decreased;Step length decreased;Flexedtrunk postureBalance: Dynamic StandingDynamic Standing Balance: Contact Guard AssistancePlease see discipline specific clinical documentation flowsheet forcomplete details for this therapy evaluation/treatment.SIGNATU RE: Sujata Ohara PT PATIENT NAME: Rocio TorresdonnyDATE: August 21, 2017 : 2:05 PM PAGER/CONTACT #: [phone] [facility] THERAPY NT HNO ID: [id number] thor: Mandi (Ot) GarnekService: Occupational TherapyAuthor Type: Occupational TherapistType: Therapy (PT/OT/Speech/Resp)Filed: 08/21/2017 11:25 AMNote Text:Occupational Therapy EvaluationSERVICE DATE: 08/21/2017SERVICE TIME: 0845 to 0910ROOM: [place] [address] ( OPERATING ROOM)Admit with Emesis X 1 Month, Abdominal Pain, Partial Duodenal Obstructionand Obstructive Jaundice, Abdominal Abscess, S/P CT Guided AbscessDrainage 08/15/17, S/P Recent Cholecystectomy 08/11/17, and ERCP 08/13/17Recommended Discharge Disposition: Home OTAnticipated Discharge Needs: Physical Assist at Home;EquipmentPhysical Assist at Home for: Cleaning;Laundry;Meals;SelfC are;Shopping;TransportationR ecommended Discharge Equipment: Elastic Shoe Laces;Grab Bars-Shower;HandHeld Shower;Long Handled Shoe Horn;Long Handled Sponge;WheeledWalker;Solid Waste Landfill Technician ;Sock Aide;Shower ChairOT Recommendations to Nursing: OOB for meals with Gait Belt;To Bathroomfor ADL?s /and or Toileting with Gait Belt;With assist of 1 personEquipment: Wheeled WalkerOT 6 Clicks Score: 18Precautions/Activity Restrictions: Bed/Chair Alarm;Abdominal;FallRisk;Kelli es/Tubes/Drains;Other: See Comments (Liquid Diet)ASSESSMENT: Pt is a 62 year old male admit with Emesis X 1 Month,Abdominal Pain, Partial Duodenal Obstruction and Obstructive Jaundice,Abdominal Abscess, S/P CT Guided Abscess Drainage 08/15/17, S/P RecentCholecystectomy 08/11/17, and ERCP 08/13/17. Past Medical History Relevantto Therapy Includes: DM, Glaucoma, HTN, MD. For Complete Past MedicalHistory Please Refer to Epic. Pt presents with decreased ability tocomplete ADL's requiring assist at this time. Pt also presents withdecreased activity tolerance, functional mobility, strength, and safety.Pt requires skilled OT services to address progression of ADL's,functional mobility, strength, increase activity tolerance, and safety.Pt has adequate support and social structure for reasonably safe dischargehome at current level. Pt is currently employed in a [employer], and[employer] watching TV. Pt has a small dog that his son walks daily. Pt hastwo adult children that do not work, and are home daily, however Pt plansto stay with his sister in her one level home. Pt's sister is home, andwill be able to assist post acute stay.Tolerated Full SessionOccupational Therapy Problem List: Safety Deficits;Impaired SelfCare;Decreased Activity Tolerance;Decreased Strength;Functional MobilityImpairmentPatient /Caregiver Goals: Go HomeGoals for Plan of Care:Able to perform HEP with: Modified IndependentGrooming with: Modified IndependentUpper Body Bathing with: Modified IndependentUpper Body Dressing with: Modified IndependentLower Body Bathing with: Stand By AssistanceLower Body Dressing with: Stand By AssistanceToilet Hygiene with: Stand By AssistanceChair Transfer with: Stand By AssistanceToilet Transfer with: Stand By AssistanceTolerate (minutes of functional activity): 30Functional Activity with: Stand By AssistanceDemonstrate Competence With Education with: IndependentProgress Toward Goals: Progressing as expectedRehab Potential: GoodPLAN:Treatment Frequency (times per week): 2Treatment Duration (number): 1 WeeksTreatment Interventions: Education;Self Care / Home Management;EnergyConservatio n Training;Strengthening;Funct ional Mobility TrainingPlan of Care developed with: PatientTREATMENT INTERVENTIONS:Therapy Diagnosis: Reduced mobility-other;Decreased activities of dailyliving (ADL);Muscle Weakness (generalized)Interventions Provided: Evaluation;Therapeutic Activity (93202)$ Evaluation-Low (93148) Billed Units: 1 unitTherapeutic Activity (09543) Treatment Minutes: 101 unitSkilled Intervention(s): Instructed patient in log roll techniqueInstructed patient in supine to sit pushing with upper extremities to situpInstruction in sit to stand technique with proper hand placement and bodypositioning at edge of bed/chairInstruction in stand to sit technique with lower extremities touchingchair/bed and reaching back for surfaceEducation with Pt educated with role/benefit of OT services, dischargeoptions, fall precautions, walker safety, recommended DME/AE, and providedprinted material. Pt completed safe functional ambulation around the bedto chair with WW for support. Pt educated with abdominal precautions, andprovided multiple printed material.Total Timed Code Treatment Minutes: 10Total Treatment Time (minutes): 25FUNCTIONAL G CODE:OT 6 Clicks Score: 18 (08/21/17844)Self Care Current Status (G8987): CK (08/21/17844)Self Care Goal Status (G8988): CJ (08/21/17844)Based on clinical assessment and the score on the 6 Clicks FunctionalAssessment Tool, the G code and corresponding severity modifiers aredocumented above.SUBJECTIVE:Current Hospital Course: Chart reviewed; Refer to above notePatient Report: I am tired today Home EnvironmentPatient Lives With: Family;Other: See Comment (Son and Dtr, two levelhome, stays on 1st level)Assistance Available: 24 Hour;Other: See Comment (Pt's children both home,Pt will stay with at sisters home)Entry To Home: Stairs;Without RailNumber Of Stairs Into Home: 2Number Of Stairs To Bed/Bath: 0Tub/Shower Type: Walk-in ShowerLaundry: Dtr completesEquipment Owned: CanePrior Functional Level: Within Functional Limits;RequiredAssistance;Ot her: See Comment (Per Pt, Independent with ADL's, familycompletes IADL's)Assistance Required With: Cleaning;Laundry;Meals;Shopp ing;Other: SeeComment (Pt's family complete IADL's)Prior Functional Level Comments: Per Pt, he was independent with ADL's,and family completes all IADL's. Pt ambulated independently prior toadmit, and works FT in a [employer].OBJECTIVE:Responsiven ess: Alert;AwakeFollows Commands: 3-step CommandsVision Deficits: Wears glasses;Other: See Comment (at all times)CURRENT FUNCTIONAL STATUS:Current Activities of Daily Living Assist LevelFeeding Modified IndependentGrooming Stand By AssistanceBathing Upper Body Stand By AssistanceBathing Lower Body Moderate AssistanceDressing Upper Body Stand By AssistanceDressing Lower Body Moderate AssistanceToileting Minimal AssistanceInstrumental Activities of Daily Living Assist LevelMeal/Beverage PrepLight CleaningLaundryMedication Management with StrategiesFunctional Mobility Assist LevelRollingSupine to Sit Minimal AssistanceSit to SupineScooting SupervisionSit to Stand Minimal AssistanceStand to Sit Minimal AssistanceBed to Chair Minimal Assistance (Pt ambulated around the bed to chair)Wheeled WalkerToilet/CommodeFunction al Mobility Minimal Assistance Wheeled WalkerBalance: Static Sitting;Dynamic Sitting;Static Standing;Dynamic StandingStatic Sitting Balance: SupervisionDynamic Sitting Balance: SupervisionStatic Standing Balance: Minimal AssistanceDynamic Standing Balance: Minimal AssistanceActivity Tolerance: (minimal fatigue noted)Please see discipline specific clinical documentation flowsheet forcomplete details for this therapy evaluation/treatment.HEBER RE: Mandi Garnek, OTR/L PATIENT NAME: Rocio FrischDATE: August 21, 2017 : 11:19 AM PAGER: [phone] [facility] CASE MANAGEMon 08-20-2017 CASE MANAGEM HNO ID: [id number] thor: Alexandrea (Rn) Thom, RNService: Care ManagementAuthor Type: Registered NurseType: Care Mgt Progress NoteFiled: 08/20/2017 1:48 PMNote Text:MULTIDISCIPLINARY ROUNDSSERVICE DATE: 08/20/2017 ADMISSION DATE: 08/13/2017SERVICE TIME: 1:46 PM ANTICIPATED D/C DATE: ThursdayPro List:ACTIVE PROBLEM LISTDuodenal ObstructionSevere Protein-Calorie Malnutrition (Hcc)Attendees Present at Rounds:Cement Patcher: Chantelleurse Accessioner/Principal Embedded Software Engineer Nurse Accessioner: Roderick Nurse: Laura Discussed on Rounds:Discharge NeedsPlan of CareAnticipated Discharge Disposition:[facility] FacilityPer discussion with [facility] Duffy pt will require HHC minimally.PT OT evals are needed.Pt has multiple drains.Last Vitals: BP 129/83 Pulse 73 Temp (Src) 98.6 (Oral) Resp 20 Ht5' 8 (1.73m) Wt 192 lb (87.1kg) SpO2 96% BMI 29.20 kg/(m2).Nursing: Fluid/Electrolyte Goal Target Achievement Date: 08/24/17Mobility Goal Target Achievement Date: 08/24/17Pain Goal Target Achievement Date: 08/24/17DOCUMENTED BY: Alexandrea Tomas RN PATIENT NAME: Rocio JacksonDATE: August 20, 2017 : 1:46 PM CSN: [id number] [facility] CBCon 08-20-2017 Erythrocyte distribution width Auto Ratio (RBC) 15.8 % High 11.5-15.0 [facility] Comment on above: Performed By: #### C BC, CMP, MG1, PHOS ####[facility] [place], [place] [phone] Erythrocytes (RBC) 2.93 10*6/uL Low 4.20-6.00 [facility] Comment on above: Performed By: #### C BC, CMP, MG1, PHOS ####[place] [phone] Hematocrit (HCT) 26.0 % Low 39.0-51.0 [facility] Comment on above: Performed By: #### C BC, CMP, MG1, PHOS ####[place] [phone] Hemoglobin mass conc (Bld) 8.3 g/dL Low 13.0-17.0 [facility] Comment on above: Performed By: #### C BC, CMP, MG1, PHOS ####[place] [phone] MCH 28.3 pG Normal 26.0-34.0 [facility] Comment on above: Performed By: #### C BC, CMP, MG1, PHOS ####[place] [phone] MCHC mass conc (RBC) 31.9 g/dL Normal 30.5-36.0 [facility] Comment on above: Performed By: #### C BC, CMP, MG1, PHOS ####[place] [phone] MCV 88.7 fL Normal 80.0-100.0 [facility] Comment on above: Performed By: #### C BC, CMP, MG1, PHOS ####[place] [phone] Platelet mean volume (PMV) 9.6 fL Normal 9.0-12.7 [facility] Comment on above: Performed By: #### C BC, CMP, MG1, PHOS ####[place] [phone] Platelets 331 10*3/uL Normal 150-400 [facility] Comment on above: Performed By: #### C BC, CMP, MG1, PHOS ####[place] [phone] WBC (Leukocytes) 5.78 10*3/uL Normal 3.70-11.00 [facility] Comment on above: Performed By: #### C BC, CMP, MG1, PHOS ####[place] [address] Comp Metabolic Panelon 08-20 Alanine aminotransferase (ALT) 55 U/L High 5-50 [facility] Comment on above: Performed By: #### C BC, CMP, MG1, PHOS ####[place] [address] Albumin 2.1 g/dL Low 3.5-5.0 [facility] Comment on above: Result Comment: Revi ewed Performed By: #### C BC, CMP, MG1, PHOS ####[place] [address] Alkaline phosphatase (ALP) 241 U/L High 40-150 [facility] Comment on above: Performed By: #### C BC, CMP, MG1, PHOS ####[place] [address] Anion gap 9 mmol/L Normal 9-18 [facility] Comment on above: Performed By: #### C BC, CMP, MG1, PHOS ####[place] [address] Aspartate aminotransferase (AST) 42 U/L High 7-40 [facility] Comment on above: Result Comment: Resu lts may be falsely increased due to interference by hemolysis. Suggest reorder as clinically indicated. Performed By: #### C BC, CMP, MG1, PHOS ####[place] [address] Bilirubin (total) 0.7 mg/dL Normal 0.0-1.5 [facility] Comment on above: Performed By: #### C BC, CMP, MG1, PHOS ####[place] [address] Calcium 7.6 mg/dL Low 8.5-10.5 [facility] Comment on above: Performed By: #### C BC, CMP, MG1, PHOS ####[place] [phone] Chloride 109 mmol/L Normal 98-110 [facility] Comment on above: Performed By: #### C BC, CMP, MG1, PHOS ####[place] [phone] CO2 23 mmol/L Normal 23-32 [facility] Comment on above: Performed By: #### C BC, CMP, MG1, PHOS ####[place] [phone] Creatinine 0.68 mg/dL Low 0.70-1.40 [facility] Comment on above: Performed By: #### C BC, CMP, MG1, PHOS ####[place] [phone] eGFR (non-black) mL/min/{1.73_m2} Normal >60 [facility] Comment on above: Performed By: #### C BC, CMP, MG1, PHOS ####[place] [phone] Glucose mass conc 117 mg/dL High 65-100 [facility] Comment on above: Performed By: #### C BC, CMP, MG1, PHOS ####[place] [phone] Potassium molar conc 3.9 mmol/L Normal 3.5-5.0 [facility] Comment on above: Performed By: #### C BC, CMP, MG1, PHOS ####[place] [phone] Protein 5.3 g/dL Low 6.0-8.4 [facility] Comment on above: Performed By: #### C BC, CMP, MG1, PHOS ####[place] [phone] Sodium 141 mmol/L Normal 135-146 [facility] Comment on above: Performed By: #### C BC, CMP, MG1, PHOS ####[facility] [place], [place] [phone] Urea nitrogen 6 mg/dL Low 10-25 [facility] Comment on above: Performed By: #### C BC, CMP, MG1, PHOS ####[address] [phone] Magnesiumon 08-20-2017 Magnesium 2.2 mg/dL Normal 1.7-2.6 [facility] Comment on above: Performed By: #### C BC, CMP, MG1, PHOS ####[address] [phone] NURSING PROGon 08-20-2017 NURSING PROG HNO ID: [id number] thor: Maryanne (Rn) Luis Miguel, RNService: (none)Author Type: Registered NurseType: Nursing Progress NoteFiled: 08/20/2017 9:53 AMNote Text: Nursing Progress NotePatient Name: Rocio TorresDary: [id number] Location: [place] [id number] ____[id number] - attempted to flush right double lumen PICC, both lumens are patentwith positive blood return, restarted ordered IV fluids. Patienttolerating wellThis note was completed by: Maryanne Bolanos RN [facility] PROGRESSon 08-20-2017 PROGRESS HNO ID: [id number] thor: Khadar Guo: General SurgeryAuthor Type: PhysicianType: Progress NotesFiled: 08/20/2017 12:27 PMNote Text:PROGRESS NOTES - SURGICAL SERVICESPATIENT NAME: Rociomarisa Boudreaux: [id number] HISTORY OF PRESENT ILLNESS:Got PTHC yesterday. No acute events overnight. Pain well controlled. Nonausea or vomiting. Poor PO intake.PHYSICAL EXAM:BP 121/71 Pulse 76 Temp 36.4 ?C (97.6 ?F) (Oral) Resp 17 Ht 172.7cm (5' 8 ) Wt 87.1 kg (192 lb) SpO2 95% BMI 29.19 kg/m2Body mass index is 29.19 kg/(m2).GENERAL: Alert and oriented, no acute distress, cooperative.CARDIAC: regular rate and rythmLUNGS: Non labored breathingABDOMEN: soft, non= tender, non distended.WOUND: clean, dry and intactCBC, Coags, BMP, Mg, PhosRecent Labs 08/19/1804WBC 5.78 6.57 4.87 --HB 8.3* 8.8* 8.6* --HCT 26.0* 27.7* 26.6* --PLT 331 344 310 --INR -- -- -- 1.0NA 141 142 148* --K 3.9 3.4* 3.9 --CHLOR 109 108 112* --CO2 23 23 28 --BUN 6* 7* 13 --CREAT 0.68* 0.58* 0.71 --GLUC 117* 144* 160* --CA 7.6* 7.6* 7.2* --MG 2.2 2.2 2.1 --P 2.9 1.9* 2.2* --Liver Function, Amylase, AND LipaseRecent Labs 08/19/1804TPROT 5.3* 5.6* 5.5*ALB 2.1* 2.5* 2.3*ALT 55* 53* 66*AST 42* 27 32ALKPHOS 241* 249* 261*TBILI 0.7 0.9 0.9Intake/Output Summary (Last 24 hours) at 08/20/17 0748Last data filed at 08/20/17 0744 Gross per 24 hourIntake 2292 mlOutput 1490 mlNet 802 mlSURGERY/PROCEDURE:Procedur e(s) and Anesthesia Type: * ANESTHESIA FOR NON-INVASIVE IMAGING OR RADIATION THERAPY - Choice -Anesthesia ConsultASSESSMENT AND PLAN:62 year old male with 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 S/p PPD-1 PTHC placement-Diet: FLD and will add supplements today. Need calory count after statingon supplements // nutrition consult-Pain: Controlled w oral/IV pain meds-Mancilla: No Continued Need For Mancilla Catheterization-DVT Prophylaxis: SubQ Heparin + Intermittent pneumatic compression device(IPCD)-Antibiotics: On zosyn-Activity: out of bedx3- Strict I/Os- JPs to bulb suction and PTHC to gravity-Dispo: Continue inpatient admissionSIGNATURE: Kayleen Gonzales, MDDATE: August 20, 2017TIME: 7:48 AMAttending: As above. Tolerated full liquid diet. No abd distention.ROMINA and perc drain with no bilious output.Seems debilitated now.Plan: PT/OT; ambulate; advance to GI soft diet; if tolerates, then homewith home care for drain care.Hope to dC at least the ROMINA drain (bulb) before discharge since PTC isworking well.Outpt f/u with Dr Jolley.Khadar Duffy MDFebruary 2017 11:51 AMDiscussed with cardiology team. Will start Eliquis upon discharge forPAF.Will likely remove ROMINA then start in am.Khadar Duffy MDFebruary 2017 12:27 PM Normal [facility] Phosphoruson 08-20-2017 Phosphate 2.9 mg/dL Normal 2.5-4.5 [facility] Comment on above: Performed By: #### C BC, CMP, MG1, PHOS ####[facility] [place], [place] [phone] ANES Ila 08-19-2017 ANES POST HNO ID: [id number] thor: Craig Pinzonervice: AnesthesiologyAuthor Type: AnesthesiologistType: Anesthesia PostOpFiled: 08/19/2017 4:21 PMNote Text:POST ANESTHESIA EVALUATION NOTESERVICE DATE: 08/19/2017SERVICE TIME: 4:20 PMDOB: 1955Vitals: 426 08/19/1810Temp: 37 ?C (98.6 ?F) 36.9 ?C (98.5 ?F) 36.9 ?C (98.5 ?F) 36.2 ?C (97.2?F) 08/19/1814BP: 121/72 115/74 114/75 116/72 0 08/19/1814Pulse: 87 87 87 88 08/19/1814Resp: 16 14 14 16 08/19/1814SpO2: 98% 100% 100% 94%Validated Vital Signs: YesPOST ANES STATUS: No apparent anesthetic complications. The patient isappropriately hydrated with stable respiratory and cardiovascular status.Patient has safe and adequate airway control. The patient has appropriatepain relief and no significant post operative nausea or vomiting. Thepatient has achieved baseline mental status.Further assessment by Anesthesia Service: NoneOther Remarks:SIGNATURE: Craig Jean MD PATIENT NAME: Rocio JacksonDATE: August 19, 2017 : 4:20 PM PAGER/CONTACT #: [facility] ANES PREOPon 08-19-2017 ANES PREOP HNO ID: [id number] thor: Brian BarriossService: AnesthesiologyAuthor Type: AnesthesiologistType: Anesthesia PreOpFiled: 08/19/2017 6:27 PMNote Text:REGIONAL ANESTHESIOLOGY DAY OF SURGERY NOTEPATIENT NAME: Rocio JacksonMRN: [id number]: 1955Procedure(s) (LRB):ANESTHESIA FOR NON-INVASIVE IMAGING OR RADIATION THERAPY (N/A)Surgeon(s):Radiology [place]ishersvilleVanessa TritleEstimated body mass index is 29.19 kg/(m2) as calculated from thefollowing: Height as of this encounter: 172.7 cm (5' 8 ). Weight as of this encounter: 87.1 kg (192 lb).ASA Class: 3Adequate NPO status: YesAllergies:ALLERGIESNo Known AllergiesAirway Assessment: MP 2; Neck ROM: Full ROM without neurologic symptoms;Airway Evaluation: Jean PresentDentition: majority of teeth missingSymptoms of Sleep Apnea: DeniesMost recent lab results:Hemoglobin 8.8 08/19/2017Hematocrit 27.7 08/19/2017Potassium 3.4 08/19/2017Platelet Count 344 08/19/2017PT Sec 10.6 08/17/2017APTT 39.8 08/15/2017PT INR 1.0 08/17/2017Creatinine 0.58 08/19/2017EKG:afibVitals: 08/19/1815BP: 114/75 116/72 100/54 113/65Pulse: 87 88 87 87Resp: 14 16 16 16Temp: 37 ?C (98.6 ?F)TempSrc: OralSpO2: 100% 94% 94% 93%Weight:Height:Previous Anesthesia: No history of adverse event Family history ofanesthetic problems: NoneAdditional Physical Exam:Lungs: Lungs clear to auscultation. Good diaphragmatic excursion.Cardiac: irregularly irregularAdditional pertinent findings: N/AOther Medical Problems/ Important Considerations:Denies chest pain and SOB with exertion.Denies change in functional capacity.Denies GERD.Denies nausea and vomitingCAD s/p stentsHTNDMIIPersistent AfibDuodenal massChronic Beta Ujni medication administered within 24 hours: YesAnesthetic risks, benefits, alternatives, personnel and consent discussed:YesPatient agrees to proceed: YesBlood Products: Not anticipated for this procedureAnesthetic Plan: General ETT; Standard ASA MonitorsPain Management Plan: Parenteral or OralEPIC Chart ReviewACTIVE PROBLEM LISTDuodenal ObstructionSevere Protein-Calorie Malnutrition (Hcc)PAST MEDICAL HISTORYDiagnosis Date- Bleeding ulcer 11/15/2016 required 5 blood transfusions- Diabetes mellitus (HCC) 2017- Glaucoma- Hypertension- Myocardial infarction 05/15/2011PAST SURGICAL HISTORYProcedure Laterality Date- ANGIOPLASTY HX 05/15/2011 2 stents s/p MD;[facility]- CHOLECYSTECTOMY 08/11/2017 [facility]- PICC LINE INSERT/CONSULT 08/16/2017No family history on file.Social History:Social HistorySubstance Use Topics- Smoking status: Former Smoker Types: Cigarettes Quit date: 2010- Smokeless tobacco: Never Used- Alcohol use 1.5 oz/week 1 Cans of Beer (12oz) per week Comment: occasional beerNo current facility-administered medications on file prior to encounter.No current outpatient prescriptions on file prior to encounter.Inpatient medications reviewed in EPIC.I have interviewed and examined the patient. I have reviewed the medicalrecord and/or the pre-anesthesia evaluation, pertinent labs, and testresults.Significant changes in the patient's condition since the History andPhysical, not otherwise documented in primary service progress notes: NoThis contains updated information obtained within 48 hours ofSurgery/Procedure.SIGNATUR E: Brian Orona MD PATIENT NAME: Rocio VizcarraTE: August 19, 2017 : 1220 PAGER/CONTACT #: [phone] (pager) [facility] BRIEF OP NOTon 08-19-2017 BRIEF OP NOT HNO ID: [id number] thor: Vanessa GarciaSerkalliee: RadiologyAuthor Type: PhysicianType: Brief Op NoteFiled: 08/19/2017 2:57 PMNote Text:BRIEF OPERATIVE / PROCEDURE NOTESurgery/Procedure Date: 08/19/17Incision/Procedure Start Time:Incision Close/Procedure End Time:Surgeon(s)/Proceduralis t(s) and Principal Embedded Software Engineer(s):Dusty Garcia - PrimaryProcedure(s): R PTHC and Int/Ext biliary drainAnesthesia: GeneralFindings: Mildly dilated IH ducts. NO filling defects. Severe D2-3strictureEstimated Blood Loss: MinimalSpecimens: NoneComplications: NonePre-Op/Pre-Procedure Diagnosis: Duodenal massPost-Op/Post-Procedure Diagnosis: SameSIGNATURE: Vanessa Garcia MD PATIENT NAME: Rocio JacksonDATE: August 19, 2017 : 2:56 PM PAGER/CONTACT #: [facility] CBCon 08-19-2017 Erythrocyte distribution width Auto Ratio (RBC) 15.4 % High 11.5-15.0 [facility] Comment on above: Performed By: #### C BC, CMP, MG1, PHOS ####[place] [phone] Erythrocytes (RBC) 3.17 10*6/uL Low 4.20-6.00 [facility] Comment on above: Performed By: #### C BC, CMP, MG1, PHOS ####[place] [phone] Hematocrit (HCT) 27.7 % Low 39.0-51.0 [facility] Comment on above: Performed By: #### C BC, CMP, MG1, PHOS ####[place] [phone] Hemoglobin mass conc (Bld) 8.8 g/dL Low 13.0-17.0 [facility] Comment on above: Performed By: #### C BC, CMP, MG1, PHOS ####[place] [phone] MCH 27.8 pG Normal 26.0-34.0 [facility] Comment on above: Performed By: #### C BC, CMP, MG1, PHOS ####[place] [phone] MCHC mass conc (RBC) 31.8 g/dL Normal 30.5-36.0 [facility] Comment on above: Performed By: #### C BC, CMP, MG1, PHOS ####[address] MCV 87.4 fL Normal 80.0-100.0 [facility] Comment on above: Performed By: #### C BC, CMP, MG1, PHOS ####[place] [phone] Platelet mean volume (PMV) 9.7 fL Normal 9.0-12.7 [facility] Comment on above: Performed By: #### C BC, CMP, MG1, PHOS ####[place] [phone] Platelets 344 10*3/uL Normal 150-400 [facility] Comment on above: Performed By: #### C BC, CMP, MG1, PHOS ####[place] [address] WBC (Leukocytes) 6.57 10*3/uL Normal 3.70-11.00 [facility] Comment on above: Performed By: #### C BC, CMP, MG1, PHOS ####[place] [address] Comp Metabolic Panelon 08-19 Alanine aminotransferase (ALT) 53 U/L High 5-50 [facility] Comment on above: Performed By: #### C BC, CMP, MG1, PHOS ####[place] [address] Albumin 2.5 g/dL Low 3.5-5.0 [facility] Comment on above: Performed By: #### C BC, CMP, MG1, PHOS ####[place] [address] Alkaline phosphatase (ALP) 249 U/L High 40-150 [facility] Comment on above: Performed By: #### C BC, CMP, MG1, PHOS ####[place] [address] Anion gap 11 mmol/L Normal 9-18 [facility] Comment on above: Performed By: #### C BC, CMP, MG1, PHOS ####[place] [address] Aspartate aminotransferase (AST) 27 U/L Normal 7-40 [facility] Comment on above: Performed By: #### C BC, CMP, MG1, PHOS ####[place] [id number] Bilirubin (total) 0.9 mg/dL Normal 0.0-1.5 [facility] Comment on above: Performed By: #### C BC, CMP, MG1, PHOS ####[place] [address] Calcium 7.6 mg/dL Low 8.5-10.5 [facility] Comment on above: Performed By: #### C BC, CMP, MG1, PHOS ####[place] [address] Chloride 108 mmol/L Normal 98-110 [facility] Comment on above: Performed By: #### C BC, CMP, MG1, PHOS ####[place] [address] CO2 23 mmol/L Normal 23-32 [facility] Comment on above: Performed By: #### C BC, CMP, MG1, PHOS ####[place] [address] Creatinine 0.58 mg/dL Low 0.70-1.40 [facility] Comment on above: Performed By: #### C BC, CMP, MG1, PHOS ####[place] [address] eGFR (non-black) mL/min/{1.73_m2} Normal >60 [facility] Comment on above: Performed By: #### C BC, CMP, MG1, PHOS ####[place] [address] Glucose mass conc 144 mg/dL High 65-100 [facility] Comment on above: Performed By: #### C BC, CMP, MG1, PHOS ####[place] [address] Potassium molar conc 3.4 mmol/L Low 3.5-5.0 [facility] Comment on above: Performed By: #### C BC, CMP, MG1, PHOS ####[place] [address] Protein 5.6 g/dL Low 6.0-8.4 [facility] Comment on above: Performed By: #### C BC, CMP, MG1, PHOS ####[place] [address] Sodium 142 mmol/L Normal 135-146 [facility] Comment on above: Performed By: #### C BC, CMP, MG1, PHOS ####[facility] [place], [place] [phone] Urea nitrogen 7 mg/dL Low 10-25 [facility] Comment on above: Performed By: #### C BC, CMP, MG1, PHOS ####[facility] [place], [place] [phone] CATH BILI DRAIN INT -EXTon 08-19-[address] C[address] BILI DRAIN INT-EXT * * *Final Report* * *DATE OF EXAM: Aug 19 2017 2:56PM ALICIA 5148 - IR PLACE CATH BILI DRAIN INT-EXT / REASON: pthc * * * * Physician Interpretation * * * * PROCEDURE: PERCUTANEOUS TRANSHEPATIC CHOLANGIOGRAM AND INTERNAL/EXTERNAL BILIARY DRAIN.HISTORY: 62-year-old man with duodenal mass, distal CBD obstruction. Unable to cannulate the ampulla during endoscopy secondary to acute angle. Clinical team requests placement of internal/external biliary drain with plans to later internalize the stent.CONSENT: Risks, benefits, treatment options, potential complications and personnel to be involved were discussed (including the risks of radiation exposure, contrast and anesthesia administration, and any equipment needed for the procedure to ensure best possible outcome) with the patient and all questions were answered and consent was obtained prior to procedure.MEDICATION RECONCILIATION: The patient's medications and allergies were reviewed in the electronic medical record and reconciled to the proposed procedure/treatment.MADHU-PRO CEDURE DISCUSSION: The appropriate elements of the pre-procedure discussion, safety check list and sign-out were performed.TIME OUT: A time out was performed immediately prior to procedure start with the nursing, and interventional team, correctly identifying the name, date of , procedure, anatomy (including marking of site and side if applicable), patient position, procedure consent form, relevant diagnostic and radiology test results, antibiotic administration if applicable, safety precautions, and procedure-specific equipment needs.Start of procedure (Time out): 1310End of procedure (Sign out): 1453Patient position: SupineAnesthesia: general anesthesiaLocal anesthesia: 2 % lidocaineANTIBIOTICS: ZosynAntibiotic infusion start time: 1310CONTRAST DOSE: 135 cc of OMNIPAQUE 240 was injected into the biliary system during the procedure.IMAGE GUIDANCE: Fluoroscopic and sonographicFLUOROSCOPIC RADIATION SUMMARY:Plane A, Air Kerma: 1529.0 mGyDose Area Product (DAP): 612083.0 mGy*tb8Ppyoqi Time: 46:36 min:secRadiation dose exceed 5 Gy: NoIf radiation dose exceeded 5 Gy, was counseling and instructional brochure provided:N/ATECHNIQUE: The patient was prepped and draped using all elements of maximal sterile barrier technique (cap, mask, sterile gown, sterile gloves, a large sterile sheet, hand hygiene and cutaneous antisepsis), sterile ultrasound gel and sterile ultrasound probe covers. After local anesthesia, 2 attempts were made to access a mildly dilated intrahepatic biliary ducts in the left lobe in a subxiphoid approach under ultrasound guidance. These were unsuccessful. Given the small size lobe, middle dilation, proximity of the right ventricle, and presence of overlying fluid collection, the decision was made to left-sided access and instead moved to the right.Next, under fluoroscopic guidance was obtained into a patent right hepatic duct under image guidance using a 21 gauge needle. Cholangiogram was performed. Second, more definitive access was obtained more peripherally into the anterior right hepatic duct under fluoroscopic guidance. The access was exchanged for an Alvarez Set dilator. Using a 4 Burkinan Kumpe catheter in conjunction with a glide wire, access was obtained into the small bowel. Despite multiple attempts with multiple wires and catheters, the duodenal stricture could not be passed via the [facility] access. Over an Amplatz super stiff guide wire for a drainage catheter. Catheter location was confirmed with contrast injection. Catheter was secured to the skin with 0 Prolene sutures. The biliary catheter was left to drain externally to a bag. Sterile dressing was applied.RESULT: Cholangiogram demonstrates mildly dilated intra and extrahepatic ducts. There is a severe stricture of the distal CBD with sharp angulated images, this is likely malignant in origin. Severe duodenal stricture the distal due to/proximal V3 segment, unable to pass a catheter and wire.Laterality: Right sideIndwelling device: a 10.2F x 14 cm internal external biliary drainage catheter, with [place] loop in small bowel and proximal sideholes within the common bile duct.Catheter modification: No additional side holes were needed.The patient tolerated the procedure well. There were no significant complications and no other complications during the procedure.CONCLUSION: The patient was comfortable and was transferred to the recovery room in stable condition.Estimated Blood Loss: MinimalNumber and Type of Removed Specimens: 0: Surgical pathologyATTENDING RADIOLOGIST: Dusty Garcia M.D.BELT BACK OPERATOR: NoneThe procedure was performed by the:attending radiologist, without an multimedia assistant.The attending radiologist performed the following procedural activities: Entire procedure.IMPRESSION:SUCCESS FUL PTHC AND INTERNAL/EXTERNAL BILIARY DRAIN PLACEMENT FROM RIGHT-SIDED APPROACH.CHOLANGIOGRAM DEMONSTRATING MODERATE INTRA AND EXTRA HEPATIC BILIARY DILATION.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.THE PATIENT MAY RETURN IN 8 WEEKS FOR ROUTINE CATHETER CHANGE IF LONG-TERM PERCUTANEOUS ACCESS IS REQUIRED.Ergonomic Specialist: NII Transcribe Date/Time: Aug 19 2017 3:26PDictated by : VANESSA GARCIA MDThimilly examination was interpreted and the report reviewed and electronically signed by: VANESSA GARCIA MD on Aug 21 2017 3:05PM EST [facility] Magnesiumon 08-19-2017 Magnesium 2.2 mg/dL Normal 1.7-2.6 [facility] Comment on above: Performed By: #### C BC, CMP, MG1, PHOS ####[facility] [place], [place] [phone] NURSING PROGon 08-19-2017 NURSING PROG HNO ID: [id number] thor: Shavonne (Rn) [place], RNService: NursingAuthor Type: Registered NurseType: Nursing Progress NoteFiled: 08/19/2017 5:27 PMNote Text: Nursing Progress NotePatient Name: Rocio TorresDary: [id number] [id number] ____Pt returned from PACU in stable condition. Right lateral lower quadrantdrain patent, draining brown, bilious fluid. A+Ox3, speech clear.Medicated for c/o generalized pain. Glucose 112. NPO order continued,green surgical team paged for updated orders.This note was completed by: Shavonne Mays RN [facility] NURSING PROG HNO ID: [id number] Author: Paty (Rn) KEVIN Cardoza Service: Nursing Author Type: Registered Nurse Type: Nursing Progress Note Filed: 08/19/2017 3:26 PM Note Text: Biliary tube that is the latest tube draining baldwin and rust colored.} [facility] NURSING PROG HNO ID: [id number] thor: Latanya (Rn) MOUSTAPHA Larsenervice: RadiologyAuthor Type: Registered NurseType: Nursing Progress NoteFiled: 08/19/2017 11:47 AMNote Text:PATIENT EDUCATION TOPIC: PROCEDURE / SURGERY: Procedure/Surgery: PTHCPATIENT NAME: Rocio JacksonPETRONA: [id number] LOCATION: [place] [address]READINES S TO LEARNCOGNITIVE ABILITY: Alert and orientedMOTIVATION TO LEARN: EagerInterestedFAMILY SUPPORT: Unable to assess - Family not presentINSTRUCTION PROVIDED TO: PatientPATIENT LEARNS BEST BY: Individual InstructionWritten Instruction - Hand-outsVerbal InstructionFACTORS AFFECTING LEARNING: NonePHYSICAL LIMITATIONS AFFECTING LEARNING: NoneLEARNING RESPONSEDIAGNOSIS: ADULT: Duodenal massPATIENT/FAMILY RESPONSE: Verbalizes understanding of: [id number]-A orrect actions to take to reduce post procedurecomplicationsPRE-OK OCEDURE INSTRUCTIONS-Correct action to take to follow pre-procedureinstructionsMET HOD OF INSTRUCTION: Individual instructionWritten instruction - handoutsVerbal instructionFOLLOW-UP PLAN: Follow-up with Primary CareINSTRUCTIONAL AIDS USED: NASUPPLEMENTAL MATERIAL PROVIDED TO PATIENT: NoneREFERRAL (RECOMMENDATION): NoneElectronically Signed By: Latanya Larsen RN [facility] NURSING PROG HNO ID: [id number] thor: Jennifer KenRn) MOUSTAPHA Websterervice: (none)Author Type: Registered NurseType: Nursing Progress NoteFiled: 08/19/2017 3:24 AMNote Text: Nursing Progress NotePatient Name: Rocio HayesN: [id number] Location: [place] [address]/[id number] ____ Pt with mild abd pain of 3 or less tonight. Tylenol controlling. Ptaware if needed may have pain pills. Accordian drain flushed at 2100 perorder for positive return of sterile NS and brown liquid.This note was completed by: Jennifer Webster RN [facility] NUTRITIONon 08-19-2017 NUTRITION HNO ID: [id number] thor: Alise Segura) BarsaService: Nutrition TherapyAuthor Type: Registered DietitianType: NutritionFiled: 08/19/2017 2:22 PMNote Text:NUTRITION THERAPY REASSESSMENTSERVICE DATE: 08/19/2017SERVICE TIME: ,nowRECOMMENDED MALNUTRITION DIAGNOSIS: SEVERE PROTEIN-CALORIE MALNUTRITIONIn the context of Acute Illness or Injury based on:Unintentional Weight Loss: >5% over 1 monthInsufficient Energy Intake: less than or equal to 50% for greater than orequal to 5 daysSubcutaneous Fat Loss: Moderate LossMuscle Loss Moderate LossNUTRITION CARE PLAN:Problem, Etiology and Signs/Symptoms:Suboptimal oral intake related to altered GI function as evidenced bypoor po intake, wt loss, N/V and NPO x 7 daysIntervention:NPO - IV fluids D5 LR 125 ml hr = 510 kcal from dextroseIf enteral nutrition - Recommend Nutren 1.5 goal rate 60 ml hr = 2160 kcaland 98 gm proteinWater flushes - 250 ml 4 times per dayStart up slowly due to high risk for refeeding syndrome with NPO status x7 days and previous poor intake prior to admit - Pt with electrolytes of Kand phos low with need for repletion before enteral nutrition to beginK phos bolus orderedRecheck levelMonitor and Evaluation:Goal: Meet >75% of estimated needsMonitor fluid/electrolyte balanceMonitor labs, I/Os, vital signs, weightDischarge Nutrition Recommendations:To be determinedPer HPI: 62 year old male with a history notable for PAFib not on anticoagas outpt,?CAD s/p PCI?x2 2013, type 2 DM on metformin, HTN, glaucoma. Heunderwent lap richelle for ?cholecystitis at OSH on 08/11 which was c/b bileleak. Attempt at OSH ERCP showed?an?ulcerated mass in junction of D1/D2,no visualization of ampulla; bx pending of duodenal mass. IR drainage ofbilomas completed.??S/p EGD/ERCP yesterday - noted duodenal mass, malignant with D2 stenosisinvolving area of papilla - dilatedInterval History: Duodenal mass and obstructive jaundices/p perc drain placement.-s/p ERCP yesterday s/p dilatation. For stent placementlikely corpak placed via EGDPresent Diet Order: NPONutritional Intake: 0-25% estimated energy needs over the past 7 day(s)GI symptoms: anorexia and abdominal painAbdominal Exam: abdomen is soft and bowel sounds are normalIs the patient having any pain that is interfering with oral/enteralintake? Yes LOCATION: abdomenANTHROPOMETRICSHeight : 172.7 cm (5' 8 )Admission Weight: 87.4 kg (192 lb 9.6 oz)Current Weight: 87.1 kg (192 lb)Body mass index is 29.19 kg/(m2). overweightWt loss noted from 205-192#Weight has decreased by 13# over 2 weeks representing 6.3 % weight changeLast Wt08/17/17 : 87.1 kg (192 lb)Dosing Weight: 87 kgResting Metabolic Rate: 1661Estimated kilocalorie needs: 2940-0431 kilocalories determined by 25-28kcal/kgEstimated protein needs:113 - 130 grams determined by 1.3-1.5 g/kg DosingweightEstimated fluid needs: 2200 - 2400 milliliters based on 1 mL per kcalNUTRITION FOCUSED PHYSICAL EXAM:Subcutaneous Fat LossOrbital ModerateTriceps ModerateMid-axillary at the iliac crest Unable to determine at this timeMuscle Loss Locations:Temporalis ModeratePectoralis ModerateDeltoids ModerateInterosseous ModerateLatissimus dorsi, trapezius Unable to determine at this timeQuadriceps ModerateGastrocnemius Unable to determine at this timePotential micronutrient deficiency revealed in: No deficiency identifiedEdema: NoAscites: NoAssessment of Functional Status: Unable to determine at this timeTemperature Max in 24 hours: Temp (24hrs), Av.1 ?C (98.7 ?F), Min:36.8?C (98.2 ?F), Max:37.4 ?C (99.4 ?F) BP 123/79 Pulse 92 Temp 36.9 ?C (98.5 ?F) (Oral) Resp 16 Ht 172.7cm (5' 8 ) Wt 87.1 kg (192 lb) SpO2 98% BMI 29.19 kg/u9[facility] GLUC 144*BUN 7*CREAT 0.58*NA 142K 3.4*CHLOR 108CO2 23ALB 2.5*HB 8.8*HCT 27.7*WBC 6.57P 1.9*MG 2.2Potential Signs of Inflammation: hyperglycemia, hypoalbuminemia andimaging studiesALLERGIESNo Known AllergiesCurrent Facility-Administered Medications:0.9% NaCl 2-10 mL 2-10 mL INTRAVENOUS q 12 Hpiperacillin-tazobactam 3.375 g in dextrose (iso-osmotic) 50 mL (ZOSYN)3.375 g INTRAVENOUS ONCEpotassium phosphate 30 mmol in NaCl 0.9% 250 mL 30 mmol INTRAVENOUS ONCEinsulin lispro injection (rapid acting) (HumaLOG) SUBCUTANEOUS w MEALSAND HSdextrose 5% in LR infusion (D5-LR) 125 mL/hr INTRAVENOUS CONTINUOUSheparin 5,000 Units injection 5,000 Units SUBCUTANEOUS q 8 Hphenol 1 [place] (CHLORASEPTIC) 1 [place] MUCOUS MEMBRANE (TOPICAL MOUTH ANDTHROAT) q 2 H PRNmetoprolol tartrate (short acting) 25 mg tab(s) (LOPRESSOR) 25 mg ORAL q 8H0.9% NaCl 10 mL 10 mL INTRAVENOUS q 12 H0.9% NaCl 20 mL 20 mL INTRAVENOUS PRNacetaminophen 650 mg tab(s) (TYLENOL) 650 mg ORAL q 6 H PRNoxyCODONE IR 5 mg tab(s) (ROXICODONE) 5 mg ORAL q 4 H PRNiv contrast (radiology procedure) INTRAVENOUS DIRECTED PRNnitroglycerin sublingual 0.4 mg tab(s) (NITROQUICK) 0.4 mg SUBLINGUAL q 5MIN PRNdextrose 40 % 15 g (INSTA-GLUCOSE) 15 g ORAL PRNOrglucagon 1 mg injection (GLUCAGEN) 1 mg INTRAMUSCULAR PRNOrdextrose 50% in water 25 mL syringe 12.5 g INTRAVENOUS PRNaspirin, enteric coated 162 mg tab(s) (ASPIRIN, ENTERIC COATED) 162 mgORAL DAILYHYDROmorphone 0.2 mg injection (DILAUDID) 0.2 mg INTRAVENOUS q 2 H PRNIntake/Output 08/15/17 0700 - 08/16/17 0659 08/16/17 0700 - 08/17/17 0659 700 - 08/18/17 0659 08/18/17 07 - 08/19/17 0659 08/19/17 07 -08/20/17 0659 Intake (ml) 3079 2570.4 1953 3402 509 Output (ml) 2640 1995 2540 1256 175 Net (ml) 439 575.4 -587 2146 334Surgical Incision 08/14/17 0103 Abdomen - Laparoscopy Sites (Active)Dressing Status None: Open to Air 08/19/2017 9:20 AMIncision Closures Topical Skin Adhesive 08/19/2017 9:20 AMDrainage Description None 08/19/2017 9:20 AMDrainage Amount None 08/19/2017 9:20 AMEdges Intact 08/19/2017 9:20 AMHematoma No 08/19/2017 9:20 AMNumber of days:5MNT Billing Type: Re-assess/15 min 4 unitsSIGNATURE: Alise Lopez RD, LD PATIENT NAME: Rocio JacksonDATE: August 19, 2017 : 2:05 PM PAGER: For further assistance and weekends please page theGroup Pager -[phone] [facility] PROGRESSon 08-19-2017 PROGRESS HNO ID: [id number] thor: Khadar Guo: General SurgeryAuthor Type: PhysicianType: Progress NotesFiled: 08/19/2017 9:56 PMNote Text:Surg Att:No acute events.PTC placed - significant decrease in bile from two perc drains. Tolliquids without nausea or emesis.AfebrileLungs grossly clear. heart rate regularAbdomen soft, NT; drains in placeI/O +500/24 hoursWill try to advance to full liquids; if tolerates, then hopeful for homewith home care next 1-2 days, with outpt followup with Dr jolley.If unable to tolerate, then may need corpak placed by GI.Khadar Duffy MDbruary 2017 9:48 PMAddendum: Patient also demonstrates severe protein calorie malnutrition.Since his duodenal obstruction has been dilated, we will try POreplenishment, and possibly may need enteral feeds.Khadar Duffy MDbruary 2017 9:56 PM [facility] Phosphoruson 08-19-2017 Phosphate 1.9 mg/dL Low 2.5-4.5 [facility] Comment on above: Performed By: #### C BC, CMP, MG1, PHOS ####[facility] [place], [place] [phone] CASE MANAGEMon 08-18-2017 CASE MANAGEM HNO ID: [id number] thor: Alexandrea (Rn) Thom, MOUSTAPHAervice: Care ManagementAuthor Type: Registered NurseType: Care Mgt Progress NoteFiled: 08/18/2017 2:30 PMNote Text:MULTIDISCIPLINARY ROUNDSSERVICE DATE: 08/18/2017 ADMISSION DATE: 08/13/2017SERVICE TIME: 2:27 PM ANTICIPATED D/C DATE: 1-3 daysProblem List:ACTIVE PROBLEM LISTDuodenal ObstructionSevere Protein-Calorie Malnutrition (Hcc)Attendees Present at Rounds:Cement Patcher: Roderick Nurse: Laura Discussed on Rounds:Discharge NeedsPlan of CareCM following for potential skilled dc needs.Anticipated Discharge Disposition:Home/Self CarePt had ERCP,Continue surgical (ROMINA) and IR drains, Biliary drainLast Vitals: BP 113/68 Pulse 92 Temp (Src) 98.9 (Oral) Resp 16 Ht5' 8 (1.73m) Wt 192 lb (87.1kg) SpO2 97% BMI 29.20 kg/(m2).Nursing:Anxiety Intervention(s) Plan: Assess for Signs/Symptom of EscalatingAnxiety;Provide Quiet and Restful EnvironmentAnxiety Goals/Outcomes: Patient Verbalizes/Demonstrates DecreasedAnxietyFluid/Electr olyte Intervention(s) Plan: Assess for Signs/Symptom ofDehydration and Fluid Overload;Daily Weights;Monitor Lab Values;MonitorPatient Vital Signs and Intake and Output;Notify LIP for Changes toBaseline Status;Review Current Medication and Medication History andAdminister Medications as Ordered;Report Changes in Patient's ConditionFluid/Electrolyte Goals/Outcomes: Appropriate Fluid and ElectrolyteBalance Achieved and Maintained;Exhibits Increased Interest and AssumeResponsibility for Patient's Own/Family Learning by Beginning to Look forInformation and Ask QuestionsFluid/Electrolyte Goal Target Achievement Date: (S) 08/20/17Pain Intervention(s) Plan: Pain Assessment, Management, Reassessment PerScoring Tool;Provide Quiet and Restful EnvironmentPain Goals/Outcomes: Decrease in Pain Level per Scoring Tool;ExhibitsIncreased Interest and Assume Responsibility for Patient's Own/FamilyLearning by Beginning to Look for Information and Ask QuestionsPain Goal Target Achievement Date: 08/17/17DOCUMENTED BY: Alexandrea Tomas RN PATIENT NAME: Rocio FrischDATE: August 18, 2017 : 2:27 PM CSN: [id number] [facility] CBCon 08-18-2017 Erythrocyte distribution width Auto Ratio (RBC) 15.7 % High 11.5-15.0 [facility] Comment on above: Performed By: #### P T, PTT, AMYL, CMP, LIPA, PHOS ####[place] [phone]#### TRANSF ####[place] [phone] Erythrocytes (RBC) 3.08 10*6/uL Low 4.20-6.00 [facility] Comment on above: Performed By: #### P T, PTT, AMYL, CMP, LIPA, PHOS ####[place] [phone]#### TRANSF ####[place] [phone] Hematocrit (HCT) 26.6 % Low 39.0-51.0 [facility] Comment on above: Performed By: #### P T, PTT, AMYL, CMP, LIPA, PHOS ####[place] [phone]#### TRANSF ####[place] [address] Hemoglobin mass conc (Bld) 8.6 g/dL Low 13.0-17.0 [facility] Comment on above: Performed By: #### P T, PTT, AMYL, CMP, LIPA, PHOS ####[place] [address]#### TRANSF ####[place] [address] MCH 27.9 pG Normal 26.0-34.0 [facility] Comment on above: Performed By: #### P T, PTT, AMYL, CMP, LIPA, PHOS ####[place] [address]#### TRANSF ####[place] [address] MCHC mass conc (RBC) 32.3 g/dL Normal 30.5-36.0 [facility] Comment on above: Performed By: #### P T, PTT, AMYL, CMP, LIPA, PHOS ####[place] [address]#### TRANSF ####[place] [address] MCV 86.4 fL Normal 80.0-100.0 [facility] Comment on above: Performed By: #### P T, PTT, AMYL, CMP, LIPA, PHOS ####[place] [address]#### TRANSF ####[place] [address] Platelet mean volume (PMV) 10.2 fL Normal 9.0-12.7 [facility] Comment on above: Performed By: #### P T, PTT, AMYL, CMP, LIPA, PHOS ####[address] [phone]#### TRANSF ####[address] [phone] Platelets 310 10*3/uL Normal 150-400 [facility] Comment on above: Performed By: #### P T, PTT, AMYL, CMP, LIPA, PHOS ####[address] [phone]#### TRANSF ####[address] [phone] WBC (Leukocytes) 4.87 10*3/uL Normal 3.70-11.00 [facility] Comment on above: Performed By: #### P T, PTT, AMYL, CMP, LIPA, PHOS ####[address] [phone]#### TRANSF ####[address] [phone] CONSULT PROGon 08-18-2017 CONSULT PROG HNO ID: [id number] thor: Linda ([facility]) BinhaService: GastroenterologyAuthor Type: Nurse PractitionerType: Consult Progress NoteFiled: 08/18/2017 1:23 PMNote Text:CONSULT PROGRESS NOTESERVICE DATE: 08/18/2017SERVICE TIME: 1:20 PMCONSULTING SERVICE: GISubjectiveINTERVAL HPI: No acute events overnight. 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.Current hospital medications:insulin lispro injection (rapid acting) (HumaLOG) SUBCUTANEOUS w MEALSAND HSphenol 1 [place] (CHLORASEPTIC) 1 [place] MUCOUS MEMBRANE (TOPICAL MOUTH ANDTHROAT) q 2 H PRNdextrose 5% in NaCl 0.9% iv infusion 125 mL/hr INTRAVENOUS CONTINUOUSmetoprolol tartrate (short acting) 25 mg tab(s) (LOPRESSOR) 25 mg ORAL q 8H0.9% NaCl 10 mL 10 mL INTRAVENOUS q 12 H0.9% NaCl 20 mL 20 mL INTRAVENOUS PRNacetaminophen 650 mg tab(s) (TYLENOL) 650 mg ORAL q 6 H PRNoxyCODONE IR 5 mg tab(s) (ROXICODONE) 5 mg ORAL q 4 H PRNiv contrast (radiology procedure) INTRAVENOUS DIRECTED PRNnitroglycerin sublingual 0.4 mg tab(s) (NITROQUICK) 0.4 mg SUBLINGUAL q 5MIN PRNdextrose 40 % 15 g (INSTA-GLUCOSE) 15 g ORAL PRNglucagon 1 mg injection (GLUCAGEN) 1 mg INTRAMUSCULAR PRNdextrose 50% in water 25 mL syringe 12.5 g INTRAVENOUS PRNaspirin, enteric coated 162 mg tab(s) (ASPIRIN, ENTERIC COATED) 162 mgORAL DAILYHYDROmorphone 0.2 mg injection (DILAUDID) 0.2 mg INTRAVENOUS q 2 H PRNObjectivePHYSICAL EXAM:Physical Exam Performed:GENERAL: Alert, CooperativeABDOMEN: Abdomen soft, non-tender, BS normal, No masses or organomegalyBP 113/68 Pulse 92 Temp (Src) 98.9 (Oral) Resp 16 Ht 5' 8 (1.73m) Wt 192 lb (87.1kg) SpO2 97% BMI 29.20 kg/(m2).DATA:Diagnostic tests reviewed for today's visit:Most recent labs and imaging results.Impression/Recommend ationsMrDary Jackson is a 62 year old male with a history notable for PAFib not onanticoag as outpt, CAD s/p PCI x2 2013, type 2 DM on metformin, HTN,glaucoma. He underwent lap richelle for ?cholecystitis at OSH on 08/11 whichwas c/b bile leak. Attempt at OSH ERCP showed an ulcerated mass injunction of D1/D2, no visualization of ampulla; bx pending of duodenalmass. IR drainage of bilomas completed.?S/p EGD/ERCP yesterday - noted duodenal mass, malignant with D2 stenosisinvolving area of papilla - dilated.Plan:-for PTC today-Will consider EGD-assisted duodenal tube placement for feeding-continue to followJudith Weber [facility] GastroenterologyThank you for allowing us to participate in the care of this patient.Please call with questions or concerns.SIGNATURE: Linda Avalos CNP PATIENT NAME: Rocio Sibley: August 18, 2017 : 1:20 PM PAGER: [phone] [facility] Comp Metabolic Panelon 08-18 Alanine aminotransferase (ALT) 66 U/L High 5-50 [facility] Comment on above: Performed By: #### P T, PTT, AMYL, CMP, LIPA, PHOS ####[place] [address]#### TRANSF ####[place] [phone] Albumin 2.3 g/dL Low 3.5-5.0 [facility] Comment on above: Performed By: #### P T, PTT, AMYL, CMP, LIPA, PHOS ####[place] [address]#### TRANSF ####[place] [phone] Alkaline phosphatase (ALP) 261 U/L High 40-150 [facility] Comment on above: Performed By: #### P T, PTT, AMYL, CMP, LIPA, PHOS ####[place] [address]#### TRANSF ####[place] [phone] Anion gap 8 mmol/L Low 9-18 [facility] Comment on above: Performed By: #### P T, PTT, AMYL, CMP, LIPA, PHOS ####[place] [address]#### TRANSF ####[place] [phone] Aspartate aminotransferase (AST) 32 U/L Normal 7-40 [facility] Comment on above: Performed By: #### P T, PTT, AMYL, CMP, LIPA, PHOS ####[place] [address]#### TRANSF ####[address] Av[address] [place] [phone] Bilirubin (total) 0.9 mg/dL Normal 0.0-1.5 [facility] Comment on above: Performed By: #### P T, PTT, AMYL, CMP, LIPA, PHOS ####[place] [address]#### TRANSF ####[address] Av[address] [place] [phone] Calcium 7.2 mg/dL Low 8.5-10.5 [facility] Comment on above: Result Comment: Norma sumner Performed By: #### P T, PTT, AMYL, CMP, LIPA, PHOS ####[place] [address]#### TRANSF ####[place] [phone] Chloride 112 mmol/L High 98-110 [facility] Comment on above: Performed By: #### P T, PTT, AMYL, CMP, LIPA, PHOS ####[place] [address]#### TRANSF ####[place] [phone] CO2 28 mmol/L Normal 23-32 [facility] Comment on above: Performed By: #### P T, PTT, AMYL, CMP, LIPA, PHOS ####[place] [address]#### TRANSF ####[address] [place] [phone] Creatinine 0.71 mg/dL Normal 0.70-1.40 [facility] Comment on above: Performed By: #### P T, PTT, AMYL, CMP, LIPA, PHOS ####[place] [phone]#### TRANSF ####[phone] eGFR (non-black) mL/min/{1.73_m2} Normal >60 [facility] Comment on above: Performed By: #### P T, PTT, AMYL, CMP, LIPA, PHOS ####[place] [address]#### TRANSF ####[place] [phone] Glucose mass conc 160 mg/dL High 65-100 [facility] Comment on above: Performed By: #### P T, PTT, AMYL, CMP, LIPA, PHOS ####[place] [address]#### TRANSF ####[place] [phone] Potassium molar conc 3.9 mmol/L Normal 3.5-5.0 [facility] Comment on above: Result Comment: Revi ewed Performed By: #### P T, PTT, AMYL, CMP, LIPA, PHOS ####[address]#### TRANSF ####[place] [phone] Protein 5.5 g/dL Low 6.0-8.4 [facility] Comment on above: Performed By: #### P T, PTT, AMYL, CMP, LIPA, PHOS ####[place] [phone]#### TRANSF ####[place] [phone] Sodium 148 mmol/L High 135-146 [facility] Comment on above: Performed By: #### P T, PTT, AMYL, CMP, LIPA, PHOS ####[place] [address]#### TRANSF ####[place] [phone] Urea nitrogen 13 mg/dL Normal 10-25 [facility] Comment on above: Performed By: #### P T, PTT, AMYL, CMP, LIPA, PHOS ####[address]#### TRANSF ####[place] [phone] Magnesiumon 08-18-2017 Magnesium 2.1 mg/dL Normal 1.7-2.6 [facility] Comment on above: Performed By: #### P T, PTT, AMYL, CMP, LIPA, PHOS ####[place] [address]#### TRANSF ####[place] [phone] NUTRITIONon 08-18-2017 NUTRITION HNO ID: [id number] thor: Alise (Carlos) BarsaService: Nutrition TherapyAuthor Type: Registered DietitianType: NutritionFiled: 08/18/2017 1:39 PMNote Text:NUTRITION THERAPY PROGRESS NOTESERVICE DATE: 08/18/2017SERVICE TIME: 1:24 PMRECOMMENDED DIAGNOSIS: SEVERE PROTEIN-CALORIE MALNUTRITION per RegisteredDietitian on 08/14NUTRITION CARE PLANIntervention:Diet NPOAdvance to clearsMonitor and Evaluation:Goal: Meet >75% of estimated needsMonitor fluid/electrolyte balanceMonitor labs, I/Os, vital signs, weightDischarge Nutrition Recommendations:To be gthuhyymyh82 year old male with a history notable for PAFib not on anticoag asoutpt,?CAD s/p PCI?x2 2013, type 2 DM on metformin, HTN, glaucoma. Heunderwent lap richelle for ?cholecystitis at OSH on 08/11 which was c/b bileleak. Attempt at OSH ERCP showed?an?ulcerated mass in junction of D1/D2,no visualization of ampulla; bx pending of duodenal mass. IR drainage ofbilomas completed.??S/p EGD/ERCP yesterday - noted duodenal mass, malignant with D2 stenosisinvolving area of papilla - dilated.?Plan:-for PTC today-Will consider EGD-assisted duodenal tube placement for feeding-continue to followAdmission Weight: 87.4 kg (192 lb 9.6 oz)Current Weight: 87.1 kg (192 lb)Body mass index is 29.19 kg/(m2). overweightALLERGIESNo Known AllergiesCurrent Facility-Administered Medications:insulin lispro injection (rapid acting) (HumaLOG) SUBCUTANEOUS w MEALSAND HSphenol 1 [place] (CHLORASEPTIC) 1 [place] MUCOUS MEMBRANE (TOPICAL MOUTH ANDTHROAT) q 2 H PRNdextrose 5% in NaCl 0.9% iv infusion 125 mL/hr INTRAVENOUS CONTINUOUSmetoprolol tartrate (short acting) 25 mg tab(s) (LOPRESSOR) 25 mg ORAL q 8H0.9% NaCl 10 mL 10 mL INTRAVENOUS q 12 H0.9% NaCl 20 mL 20 mL INTRAVENOUS PRNacetaminophen 650 mg tab(s) (TYLENOL) 650 mg ORAL q 6 H PRNoxyCODONE IR 5 mg tab(s) (ROXICODONE) 5 mg ORAL q 4 H PRNiv contrast (radiology procedure) INTRAVENOUS DIRECTED PRNnitroglycerin sublingual 0.4 mg tab(s) (NITROQUICK) 0.4 mg SUBLINGUAL q 5MIN PRNdextrose 40 % 15 g (INSTA-GLUCOSE) 15 g ORAL PRNOrglucagon 1 mg injection (GLUCAGEN) 1 mg INTRAMUSCULAR PRNOrdextrose 50% in water 25 mL syringe 12.5 g INTRAVENOUS PRNaspirin, enteric coated 162 mg tab(s) (ASPIRIN, ENTERIC COATED) 162 mgORAL DAILYHYDROmorphone 0.2 mg injection (DILAUDID) 0.2 mg INTRAVENOUS q 2 H PRNIntake/Output 08/14/17 0700 - 08/15/17 0659 08/15/17 0700 - 08/16/17 0659 700 - 08/17/17 0659 08/17/17 0700 - 08/18/17 0659 08/18/17 0700 -08/19/17 0659 Intake (ml) 2119 3079 2570.4 1953 485 Output (ml) 2555 2640 1994 2540 775 Net (ml) -436 439 575.4 -587 -290Surgical Incision 08/14/17 0103 Abdomen - Laparoscopy Sites (Active)Dressing Status None: Open to Air 08/18/2017 9:30 AMIncision Closures Topical Skin Adhesive 08/18/2017 9:30 AMDrainage Description None 08/18/2017 9:30 AMDrainage Amount None 08/18/2017 9:30 AMEdges Intact 08/18/2017 9:30 AMHematoma No 08/18/2017 9:30 AMNumber of days:4MNT Billing Type: Re-assess/15 min 3 unitsSIGNATURE: Alise Lopez RD, LD PATIENT NAME: Rocio JacksonDATE: August 18, 2017 : 1:24 PM PAGER: For further assistance and weekends please page theGroup Pager -[phone] [facility] PROGRESSon 08-18-2017 PROGRESS HNO ID: [id number] thor: Khadar Guo: General SurgeryAuthor Type: PhysicianType: Progress NotesFiled: 08/18/2017 6:11 PMNote Text:PROGRESS NOTES - SURGICAL SERVICESPATIENT NAME: Rocio JacksonMRN: [id number] HISTORY OF PRESENT ILLNESS:No acute events overnight. Pain well controlled. No nausea or vomiting.PHYSICAL EXAM:BP 117/77 Pulse 100 Temp 36.9 ?C (98.4 ?F) (Oral) Resp 18 Ht 172.7cm (5' 8 ) Wt 87.1 kg (192 lb) SpO2 96% BMI 29.19 kg/m2Body mass index is 29.19 kg/(m2).GENERAL: Alert and oriented, no acute distress, cooperative.CARDIAC: regular rate and rythmLUNGS: Non labored breathingABDOMEN: soft, non tender, non distended.CBC, Coags, BMP, Mg, PhosRecent Labs 08/17/18077 105WBC 4.87 -- 7.02 11.42* 12.79*HB 8.6* -- 9.1* 9.8* 9.7*HCT 26.6* -- 27.4* 29.9* 29.3*PLT 310 -- 319 335 302INR -- 1.0 -- 2.0* 2.0*APTT -- -- -- -- 39.8*NA 148* -- 148* -- --K 3.9 -- 3.2* -- --CHLOR 112* -- 110 -- --CO2 28 -- 26 -- --BUN 13 -- 14 -- --CREAT 0.71 -- 0.68* -- --GLUC 160* -- 158* -- --CA 7.2* -- 8.2* -- --MG 2.1 -- 2.4 2.3 --P 2.2* -- 2.3* 2.1* --Liver Function, Amylase, AND LipaseRecent Labs 08/17/1803TPROT 5.5* 6.1ALB 2.3* 2.5*ALT 66* 90*AST 32 36ALKPHOS 261* 304*TBILI 0.9 1.1Intake/Output Summary (Last 24 hours) at 08/18/17 0751Last data filed at 08/18/17 0546 Gross per 24 hourIntake 1953 mlOutput 2540 mlNet -587 mlSURGERY/PROCEDURE:Procedur e(s) and Anesthesia Type: * ERCP - GeneralASSESSMENT AND PLAN:62 year old male with 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 Hospital course remarkable fora-fib, cardiology on consult.-Continue surgical (ROMINA) and IR drains-Will advance to CLD- F/U INR this am- Appreciate cards recs-Pain control-Will attempt to obtain OSH biopsy results-VTE Prophylaxis: SCDs-Routine surgical care: IS, EVERETT HERNANDEZ MD (Res)General SurgeryPager: [phone]*On weekends or nights (after 1800) please contact the surgery on callpager.*Attending: ERCP results noted. Unable to cannulate CBD; duodenumdilated.Results discussed frankly with pt and family, including this being cancer(unless proven otherwise) in a difficult location, needing an extensivesurgery to resect.Preop optimization needed, including control of biliary leak (PTCtomorrow) and good nutrition (likely corpak placed via EGD). Need forhome care of these tubes discussed. They appeared to understand.Khadar Duffy MDFebruary 2017 6:11 PM [facility] Phosphoruson 08-18-2017 Phosphate 2.2 mg/dL Low 2.5-4.5 [facility] Comment on above: Performed By: #### P T, PTT, AMYL, CMP, LIPA, PHOS ####[facility] [place], [place] [phone]#### TRANSF ####[facility] [place], [place] [phone] ANES Ila 08-17-2017 ANES POST HNO ID: [id number] thor: Reba ValleService: AnesthesiologyAuthor Type: AnesthesiologistType: Anesthesia PostOpFiled: 08/17/2017 5:41 PMNote Text:POST ANESTHESIA EVALUATION NOTESERVICE DATE: 08/17/2017SERVICE TIME: 1741DOB: 1955Vitals: 08/17/1807Temp: 37 ?C (98.6 ?F) 37.1 ?C (98.8 ?F) 37 ?C (98.6 ?F) 36.9 ?C (98.4 ?F) 08/17/1813BP: 141/90 128/84 124/86 113/79 08/17/1813Pulse: 109 101 92 115 08/17/181319/735135Hjub: 19 16 14 20 08/17/1813SpO2: 94% 96% 100% 100%Validated Vital Signs: YesPOST ANES STATUS: No apparent anesthetic complications. The patient isappropriately hydrated with stable respiratory and cardiovascular status.Patient has safe and adequate airway control. The patient has appropriatepain relief and no significant post operative nausea or vomiting. Thepatient has achieved baseline mental status.Further assessment by Anesthesia Service: NoneOther Remarks:SIGNATURE: Reba Valle MD PATIENT NAME: Rocio JacksonDATE: August 17, 2017 : 5:41 PM PAGER/CONTACT #: [facility] ANES PREOPon 08-17-2017 ANES PREOP HNO ID: [id number] thor: Reba ValleService: AnesthesiologyAuthor Type: AnesthesiologistType: Anesthesia PreOpFiled: 08/17/2017 3:21 PMNote Text:REGIONAL ANESTHESIOLOGY DAY OF SURGERY NOTEPATIENT NAME: Rocio JacksonMRN: [id number]: 1955Procedure(s) (LRB):ERCP (N/A)Surgeon(s):Srinath NavaEstimated body mass index is 29.19 kg/(m2) as calculated from thefollowing: Height as of this encounter: 172.7 cm (5' 8 ). Weight as of this encounter: 87.1 kg (192 lb).ASA Class: 3Adequate NPO status: YesAllergies:ALLERGIESNo Known AllergiesAirway Assessment: MP 2; Neck ROM: Full ROM without neurologic symptoms;Airway Evaluation: Jean PresentDentition: Poor dentitionMissing tooth upper left and upper rightSymptoms of Sleep Apnea: DeniesMost recent lab results:Hemoglobin 9.1 08/17/2017Hematocrit 27.4 08/17/2017Potassium 3.2 08/17/2017Platelet Count 319 08/17/2017PT Sec 10.6 08/17/2017APTT 39.8 08/15/2017PT INR 1.0 08/17/2017Creatinine 0.68 08/17/2017EKG:atrial fibrillation, rate 100sVitals: 120204 900 459BP: 128/77 141/90 128/84Pulse: 100 109 101Resp: Temp: 37.1 ?C (98.8 ?F) 37 ?C (98.6 ?F)TempSrc: Oral OralSpO2: 94% 94% 94% 96%Weight: 87.1 kg (192 lb)Height: 172.7 cm (5' 8 )Previous Anesthesia: No history of adverse event Family history ofanesthetic problems: NoneAdditional Physical Exam:Lungs: Lungs clear to auscultation. Good diaphragmatic excursion.Cardiac: Normal S1 and S2; no rubs, no murmurs and no gallopsAdditional pertinent findings: N/AOther Medical Problems/ Important Considerations:Denies chest pain and SOB with exertion.Denies GERD.Chronic Beta Juni medication administered within 24 hours: YesAnesthetic risks, benefits, alternatives, personnel and consent discussed:YesPatient agrees to proceed: YesBlood Products: Not anticipated for this procedureAnesthetic Plan: General ETT; Standard ASA MonitorsPain Management Plan: Parenteral or OralEPIC Chart ReviewACTIVE PROBLEM LISTDuodenal ObstructionSevere Protein-Calorie Malnutrition (Hcc)PAST MEDICAL HISTORYDiagnosis Date- Bleeding ulcer 11/15/2016 required 5 blood transfusions- Diabetes mellitus (HCC) 2017- Glaucoma- Hypertension- Myocardial infarction 05/15/2011PAST SURGICAL HISTORYProcedure Laterality Date- ANGIOPLASTY HX 05/15/2011 2 stents s/p MD;[facility]- CHOLECYSTECTOMY 08/11/2017 [facility]- PICC LINE INSERT/CONSULT 08/16/2017No family history on file.Social History:Social HistorySubstance Use Topics- Smoking status: Former Smoker Types: Cigarettes Quit date: 2010- Smokeless tobacco: Never Used- Alcohol use 1.5 oz/week 1 Cans of Beer (12oz) per week Comment: occasional beerNo current facility-administered medications on file prior to encounter.No current outpatient prescriptions on file prior to encounter.Inpatient medications reviewed in [facility].I have interviewed and examined the patient. I have reviewed the medicalrecord and/or the pre-anesthesia evaluation, pertinent labs, and testresults.Significant changes in the patient's condition since the History andPhysical, not otherwise documented in primary service progress notes: NoThis contains updated information obtained within 48 hours ofSurgery/Procedure.SIGNATUR E: Reba Valle MD PATIENT NAME: Rocio VizcarraTE: August 17, 2017 : 3:20 PM PAGER/CONTACT #: [facility] BRIEF OP NOTon 08-17-2017 BRIEF OP NOT HNO ID: [id number] thor: Srinath Padillae: GastroenterologyAuthor Type: PhysicianType: Brief Op NoteFiled: 08/17/2017 5:07 PMNote Text:Please see procedure report under procedure tabIMP:Duodenal mass, malignant with D2 stenosis involving area of papillaS/P dilation to 15mm balloonRecs:Clear liquid diet, may consider EGD assisted duodenal tube placement forfeedingUnable to cannulate due to sharp angulation, can have PTC with exchange tointernal endoscopically [facility] CASE MGT INIT ASSESon 2017 CASE MGT INIT [facility] HNO ID: [id number] thor: Alexandrea (Rn) MOUSTAPHA Tomaservice: Care ManagementAuthor Type: Registered NurseType: Care Mgt Initial AssessmentFiled: 08/17/2017 2:14 PMNote Text:CARE MANAGEMENT: ASSESSMENT AND DISCHARGE PLANSERVICE DATE: 08/17/2017SERVICE TIME: 2:11 PMPRIMARY CARE PHYSICIAN:No primary care provider on file.Phone: NoneADMISSION STATUS: InpatientPOTENTIAL DISCHARGE PLANSTo Be DeterminedPatient/Representa tive Stated Goals: I am having a test this afternoon.Needs Prior to Discharge: To Be DeterminedHealth Insurance: [facility]Living Arrangement: HomeLives With: 2 adult childrenFinancial Resources: N/APrimary Contact:Extended Emergency Contact InformationPrimary Emergency Contact: Corazon Mullerddress: [place], [place] [address]Jlnt Elscixpk: SiblingSupportive: YesOther Important Patient Contacts: NoneCAREGIVER ASSESSMENT:Caregiver is ready, willing and able to meet the patient's needs asrecommended by the inter-professional team? TBDPatient's transition needs and plan for meeting these needs: TBDDoes the patient have an acute stroke diagnosis, or has the patient had astroke during this admission? NoADVANCE DIRECTIVES:Does Patient Have Advance Directives? No, copies givenDoes Patient Have Concerns About Advance Directives? NoPRIOR TO ADMISSION:Baseline Mental Status: Alert AND Oriented, Person, Place , Time andSituationFunctional Status: IndependentDoes Patient Currently Receive Any Community Services or Home Care? NoneEquipment Prior to Admission: NoneHEALTH:Health Issues Impacting Discharge Plan: post opHealth Literacy Issues: NoPSYCHOSOCIAL:Is the Patient Psychosocially Complex? NoFamily/Patient Understanding of Illness/Diagnosis: yesMedication Adherence:Do you forget to take your medications? I do not forget to take mymedicationHave you ever stopped taking medications because you felt worse? None ofthe timeHave you ever taken less of your medication than what was prescribed byyour doctor? None of the timeIn the past 3 months, have you had issues obtaining one or more of yourmedications? None of the timeAre you interested in bedside delivery of your medications? NoFood Concerns:In the Last Month, Have You had Trouble Getting Food? No trouble gettingfoodDuring the Last Month, Have You Worried Whether Your Food Would Run OutBefore You Had Enough Money to Buy More? NoPsychosocial Needs: NoneUTILIZATION:Last Admission Date: noneIs this Within the Past 30 days? NoHas the Patient Been in a Fdc Facility in the Past 30 days? NoFREEDOM OF CHOICE EXPLAINED:N/RUDY COMMUNICATION:Poncho CM met with pt at bedside for assessment.His 2 sisters are visiting. 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 andobstructive jaundice, bile leak after recent cholecystectomy, Hospitalcourse remarkable for a-fib, cardiology on consult?-Continue surgical (ROMINA) and IR drains-Continue NGT- Cardio consulted for new onset A fib- F/U recs-Pip/tazo-ERCP today (will need to confirm for stent placement)Pt was independent prior to admission.CM remains available to assist if skilled dc needs arise.SIGNATURE: Alexandrea Tomas RN PATIENT NAME: Rocio VizcarraTE: August 17, 2017 : 2:07 PM PAGER/CONTACT #: [phone] [facility] CBCon 08-17-2017 Erythrocyte distribution width Auto Ratio (RBC) 15.5 % High 11.5-15.0 [facility] Comment on above: Performed By: #### P T, PTT, AMYL, CMP, LIPA, PHOS ####[place] [address]#### TRANSF ####[place] [id number] Erythrocytes (RBC) 3.18 10*6/uL Low 4.20-6.00 [facility] Comment on above: Performed By: #### P T, PTT, AMYL, CMP, LIPA, PHOS ####[place] [address]#### TRANSF ####[place] [phone] Hematocrit (HCT) 27.4 % Low 39.0-51.0 [facility] Comment on above: Performed By: #### P T, PTT, AMYL, CMP, LIPA, PHOS ####[place] [address]#### TRANSF ####[place] [phone] Hemoglobin mass conc (Bld) 9.1 g/dL Low 13.0-17.0 [facility] Comment on above: Performed By: #### P T, PTT, AMYL, CMP, LIPA, PHOS ####[place] [address]#### TRANSF ####[place] [address] MCH 28.6 pG Normal 26.0-34.0 [facility] Comment on above: Performed By: #### P T, PTT, AMYL, CMP, LIPA, PHOS ####[place] [address]#### TRANSF ####[place] [phone] MCHC mass conc (RBC) 33.2 g/dL Normal 30.5-36.0 [facility] Comment on above: Performed By: #### P T, PTT, AMYL, CMP, LIPA, PHOS ####[place] [address]#### TRANSF ####[place] [phone] MCV 86.2 fL Normal 80.0-100.0 [facility] Comment on above: Performed By: #### P T, PTT, AMYL, CMP, LIPA, PHOS ####[place] [address]#### TRANSF ####[place] [phone] Platelet mean volume (PMV) 10.0 fL Normal 9.0-12.7 [facility] Comment on above: Performed By: #### P T, PTT, AMYL, CMP, LIPA, PHOS ####[place] [address]#### TRANSF ####[place] [phone] Platelets 319 10*3/uL Normal 150-400 [facility] Comment on above: Performed By: #### P T, PTT, AMYL, CMP, LIPA, PHOS ####[place] [address]#### TRANSF ####[place] [phone] WBC (Leukocytes) 7.02 10*3/uL Normal 3.70-11.00 [facility] Comment on above: Performed By: #### P T, PTT, AMYL, CMP, LIPA, PHOS ####[facility] [place], [place] [phone]#### TRANSF ####[facility] [address] [place], [place] [phone] CONSULT PROGon 08-17-2017 CONSULT PROG HNO ID: [id number] thor: Jessee Lottervice: Cardiovascular DiseaseAuthor Type: PhysicianType: Consult Progress NoteFiled: 08/18/2017 10:29 PMNote Text:PROGRESS NOTE CARDIOLOGY SERVICESERVICE DATE: August 17, 2017SERVICE TIME: 12:48 PMASSESSMENT/PLANActive Problems:Atrial fibrillation. Persistent AF, ventricular rates +/- 100Heparin infusion is off. Inr was elevated, received vitamin K prior toprocedure. Today 1.0.s/p ERCP yesterdayPlan:Continue metoprolol.Spoke to surgical [employer] Boubacar Espinoza. ->kimberley is for PTHC tomorrow.Will consider AC after procedure. ?Duodenal mass and obstructive jaundices/p perc drain placement.-s/p ERCP yesterday s/p dilatation. For stent placement tomorrow.As aboveContinue monitorThank you very much for allowing me to participate in this patient's care.Jessee Mayorga, MDSUBJECTIVEINTERIM HISTORY: No chest pain or dyspnea. No palpitations or dizziness.Telemetry AF 90s-100s. BP stable.OBJECTIVEPHYSICAL EXAM:BP 141/90 Pulse 109 Temp (Src) 98.6 (Oral) Resp 19 Ht 5' 8 (1.73m) Wt 192 lb (87.1kg) SpO2 94% BMI 29.20 kg/(m2).Pleasant, comfortable, not in acute distress.Awake, alert, oriented times 3.Moves all extremities.NECK: Supple, no JV.LUNGS: Clear to auscultation bilaterally.CARDIAC: PMI present, irregular, S1 and S2, no S3 or S4, no additionalheart sounds or murmurs.ABDOMEN: Soft, nontender, bowel sounds present.EXTREMITIES: No edema.PULSES: Peripheral pulses present.MEDICATIONS:Current Facility-Administered Medications:phenol 1 [place] (CHLORASEPTIC) 1 [place] MUCOUS MEMBRANE (TOPICAL MOUTH ANDTHROAT) q 2 H PRNpotassium phosphate 30 mmol in NaCl 0.9% 250 mL 30 mmol INTRAVENOUS ONCEdextrose 5% in NaCl 0.9% iv infusion 125 mL/hr INTRAVENOUS CONTINUOUSmetoprolol tartrate (short acting) 25 mg tab(s) (LOPRESSOR) 25 mg ORAL q 8H0.9% NaCl 10 mL 10 mL INTRAVENOUS q 12 H0.9% NaCl 20 mL 20 mL INTRAVENOUS PRNacetaminophen 650 mg tab(s) (TYLENOL) 650 mg ORAL q 6 H PRNoxyCODONE IR 5 mg tab(s) (ROXICODONE) 5 mg ORAL q 4 H PRNiv contrast (radiology procedure) INTRAVENOUS DIRECTED PRNnitroglycerin sublingual 0.4 mg tab(s) (NITROQUICK) 0.4 mg SUBLINGUAL q 5MIN PRNdextrose 40 % 15 g (INSTA-GLUCOSE) 15 g ORAL PRNOrglucagon 1 mg injection (GLUCAGEN) 1 mg INTRAMUSCULAR PRNOrdextrose 50% in water 25 mL syringe 12.5 g INTRAVENOUS PRNinsulin lispro injection (rapid acting) (HumaLOG) SUBCUTANEOUS q 6 Haspirin, enteric coated 162 mg tab(s) (ASPIRIN, ENTERIC COATED) 162 mgORAL DAILYHYDROmorphone 0.2 mg injection (DILAUDID) 0.2 mg INTRAVENOUS q 2 H PRNDATA:Diagnostic tests reviewed for today's visit:Most recent labs and imaging results.Most recent EKGTelemetryPast 72 Hour Labs:CBC, Coags, BMP, Mg, PhosRecent Labs 08/17/18073 08/16/1805105WBC 4.87 -- 7.02 11.42* 12.79*HB 8.6* -- 9.1* 9.8* 9.7*HCT 26.6* -- 27.4* 29.9* 29.3*PLT 310 -- 319 335 302INR -- 1.0 -- 2.0* 2.0*APTT -- -- -- -- 39.8*NA 148* -- 148* -- --K 3.9 -- 3.2* -- --CHLOR 112* -- 110 -- --CO2 28 -- 26 -- --BUN 13 -- 14 -- --CREAT 0.71 -- 0.68* -- --GLUC 160* -- 158* -- --CA 7.2* -- 8.2* -- --MG 2.1 -- 2.4 2.3 --P 2.2* -- 2.3* 2.1* --Liver Function, Amylase, AND LipaseRecent Labs 08/17/1803TPROT 5.5* 6.1ALB 2.3* 2.5*ALT 66* 90*AST 32 36ALKPHOS 261* 304*TBILI 0.9 1.1Cardiac EnzymesSIGNATURE: Sabrina Arango CNP PATIENT NAME: Rocio VizcarraTE: August 17, 2017 : 12:48 PM PAGER/CONTACT #: [facility] Comp Metabolic Panelon 08-17 Alanine aminotransferase (ALT) 90 U/L High 5-50 [facility] Comment on above: Performed By: #### P T, PTT, AMYL, CMP, LIPA, PHOS ####[address]#### TRANSF ####[place] [phone] Albumin 2.5 g/dL Low 3.5-5.0 [facility] Comment on above: Performed By: #### P T, PTT, AMYL, CMP, LIPA, PHOS ####[place] [phone]#### TRANSF ####[place] [phone] Alkaline phosphatase (ALP) 304 U/L High 40-150 [facility] Comment on above: Performed By: #### P T, PTT, AMYL, CMP, LIPA, PHOS ####[place] [phone]#### TRANSF ####[place] [phone] Anion gap 12 mmol/L Normal 9-18 [facility] Comment on above: Performed By: #### P T, PTT, AMYL, CMP, LIPA, PHOS ####[place] [address]#### TRANSF ####[place] [address] Aspartate aminotransferase (AST) 36 U/L Normal 7-40 [facility] Comment on above: Performed By: #### P T, PTT, AMYL, CMP, LIPA, PHOS ####[place] [address]#### TRANSF ####[place] [address] Bilirubin (total) 1.1 mg/dL Normal 0.0-1.5 [facility] Comment on above: Performed By: #### P T, PTT, AMYL, CMP, LIPA, PHOS ####[place] [address]#### TRANSF ####[place] [address] Calcium 8.2 mg/dL Low 8.5-10.5 [facility] Comment on above: Performed By: #### P T, PTT, AMYL, CMP, LIPA, PHOS ####[place] [address]#### TRANSF ####[place] [phone] Chloride 110 mmol/L Normal 98-110 [facility] Comment on above: Result Comment: Revi ewed Performed By: #### P T, PTT, AMYL, CMP, LIPA, PHOS ####[place] [address]#### TRANSF ####[place] [address] [address] [place] [phone] CO2 26 mmol/L Normal 23-32 [facility] Comment on above: Performed By: #### P T, PTT, AMYL, CMP, LIPA, PHOS ####[place] [phone]#### TRANSF ####[place] [phone] Creatinine 0.68 mg/dL Low 0.70-1.40 [facility] Comment on above: Performed By: #### P T, PTT, AMYL, CMP, LIPA, PHOS ####[place] [address]#### TRANSF ####[place] [address] eGFR (non-black) mL/min/{1.73_m2} Normal >60 [facility] Comment on above: Performed By: #### P T, PTT, AMYL, CMP, LIPA, PHOS ####[address]#### TRANSF ####[place] [phone] Glucose mass conc 158 mg/dL High 65-100 [facility] Comment on above: Performed By: #### P T, PTT, AMYL, CMP, LIPA, PHOS ####[address]#### TRANSF ####[place] [phone] Potassium molar conc 3.2 mmol/L Low 3.5-5.0 [facility] Comment on above: Performed By: #### P T, PTT, AMYL, CMP, LIPA, PHOS ####[place] [address]#### TRANSF ####[place] [phone] Protein 6.1 g/dL Normal 6.0-8.4 [facility] Comment on above: Performed By: #### P T, PTT, AMYL, CMP, LIPA, PHOS ####[place] [address]#### TRANSF ####[place] [phone] Sodium 148 mmol/L High 135-146 [facility] Comment on above: Result Comment: Revi ewed Performed By: #### P T, PTT, AMYL, CMP, LIPA, PHOS ####[place] [address]#### TRANSF ####[place] [address] Urea nitrogen 14 mg/dL Normal 10-25 [facility] Comment on above: Performed By: #### P T, PTT, AMYL, CMP, LIPA, PHOS ####[place] [address]#### TRANSF ####[place] [phone] Magnesiumon 08-17-2017 Magnesium 2.4 mg/dL Normal 1.7-2.6 [facility] Comment on above: Performed By: #### P T, PTT, AMYL, CMP, LIPA, PHOS ####[place] [address]#### TRANSF ####[place] [phone] NUTRITIONon 08-17-2017 NUTRITION HNO ID: [id number] thor: Alise Yatesvice: Nutrition TherapyAuthor Type: Registered DietitianType: NutritionFiled: 08/17/2017 11:43 AMNote Text:NUTRITION THERAPY PROGRESS NOTESERVICE DATE: 08/17/2017SERVICE TIME: 10:20 AMRECOMMENDED DIAGNOSIS: SEVERE PROTEIN-CALORIE MALNUTRITION per RegisteredDietitian on 08/14NUTRITION CARE PLANIntervention:NPO x 4 days in hospitalNGIV Fluids 125 ml hr D5 NS = 510 kcal from dextrosePaged Surgery for plan regarding route of feeds - TPN vs TFMonitor and Evaluation:Goal: Meet >75% of estimated needsMonitor fluid/electrolyte balanceMonitor labs, I/Os, vital signs, weightDischarge Nutrition Recommendations:To be determinedPer HPI: 62 year old male with 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 Hospital courseremarkable for a-fib, cardiology on consult?-Continue surgical (ROMINA) and IR drains-Continue NGT- F/U INR this amInterval History: Duodenal mass and obstructive jaundices/p perc drain placement.-plan is for ERCP with possible duodenal stent placementPresent Diet Order: NPONutritional Intake: 0-25% estimated energy needs over the past 4 day(s)Dosing Weight: 87 kgResting Metabolic Rate: 1661Estimated kilocalorie needs: 9739-6029 kilocalories determined by 25-28kcal/kgEstimated protein needs:113 - 130 grams determined by 1.3-1.5 g/kg DosingweightEstimated fluid needs: 2200 - 2400 milliliters based on 1 mL per kcalAdmission Weight: 87.4 kg (192 lb 9.6 oz)Current Weight: 87.4 kg (192 lb 9.6 oz)Body mass index is 29.28 kg/(m2). overweightALLERGIESNo Known AllergiesCurrent Facility-Administered Medications:phenol 1 [place] (CHLORASEPTIC) 1 [place] MUCOUS MEMBRANE (TOPICAL MOUTH ANDTHROAT) q 2 H PRNpotassium phosphate 30 mmol in NaCl 0.9% 250 mL 30 mmol INTRAVENOUS ONCEdextrose 5% in NaCl 0.9% iv infusion 125 mL/hr INTRAVENOUS CONTINUOUSmetoprolol tartrate (short acting) 25 mg tab(s) (LOPRESSOR) 25 mg ORAL q 8H0.9% NaCl 10 mL 10 mL INTRAVENOUS q 12 H0.9% NaCl 20 mL 20 mL INTRAVENOUS PRNacetaminophen 650 mg tab(s) (TYLENOL) 650 mg ORAL q 6 H PRNciprofloxacin 400 mg in D5W 200 mL (CIPRO) 400 mg INTRAVENOUS ONCEoxyCODONE IR 5 mg tab(s) (ROXICODONE) 5 mg ORAL q 4 H PRNiv contrast (radiology procedure) INTRAVENOUS DIRECTED PRNnitroglycerin sublingual 0.4 mg tab(s) (NITROQUICK) 0.4 mg SUBLINGUAL q 5MIN PRNdextrose 40 % 15 g (INSTA-GLUCOSE) 15 g ORAL PRNOrglucagon 1 mg injection (GLUCAGEN) 1 mg INTRAMUSCULAR PRNOrdextrose 50% in water 25 mL syringe 12.5 g INTRAVENOUS PRNinsulin lispro injection (rapid acting) (HumaLOG) SUBCUTANEOUS q 6 Haspirin, enteric coated 162 mg tab(s) (ASPIRIN, ENTERIC COATED) 162 mgORAL DAILYHYDROmorphone 0.2 mg injection (DILAUDID) 0.2 mg INTRAVENOUS q 2 H PRNIntake/Output 08/13/17 0700 - 08/14/17 0659 08/14/17 0700 - 08/15/17 0659 242019 - 08/16/17 0659 08/16/17 0700 - 08/17/17 0659 Intake (ml) 427 2119 3079 2570.4 Output (ml) 1190 2555 2640 1995 Net (ml) -763 -436 439 575.4Surgical Incision 08/14/17 0103 Abdomen - Laparoscopy Sites (Active)Dressing Status None: Open to Air 08/16/2017 10:06 PMIncision Closures Topical Skin Adhesive 08/16/2017 10:06 PMDrainage Description None 08/16/2017 10:06 PMDrainage Amount None 08/16/2017 10:06 PMEdges Intact 08/16/2017 10:06 PMHematoma No 08/16/2017 10:06 PMNumber of days:3MNT Billing Type: Re-assess/15 min 4 unitsSIGNATURE: Alise Lopez RD, LD PATIENT NAME: Rocio TorresschDATE: August 17, 2017 : 10:20 AM PAGER: For further assistance and weekends please page theGroup Pager [phone] [facility] PROGRESSon 08-17-2017 PROGRESS HNO ID: [id number] thor: Khadar Guo: General SurgeryAuthor Type: PhysicianType: Progress NotesFiled: 08/17/2017 2:42 PMNote Text:PROGRESS NOTES - SURGICAL SERVICESPATIENT NAME: Rocio Boudreaux: [id number] HISTORY OF PRESENT ILLNESS:No acute events overnight. Pain well controlled. No nausea or vomiting.PHYSICAL EXAM:BP 128/77 Pulse 100 Temp 37.1 ?C (98.8 ?F) (Oral) Resp 17 Ht 172.7cm (5' 8 ) Wt 87.4 kg (192 lb 9.6 oz) SpO2 94% BMI 29.28 kg/m2Body mass index is 29.28 kg/(m2).GENERAL: Alert and oriented, no acute distress, cooperative.CARDIAC: regular rate and rythmLUNGS: Non labored breathingABDOMEN: soft, non tender, non distended.CBC, Coags, BMP, Mg, PhosRecent Labs 08/16/1805WBC 7.02 11.42* 12.79* 16.33*HB 9.1* 9.8* 9.7* 11.1*HCT 27.4* 29.9* 29.3* 33.4*PLT 319 335 302 328INR -- 2.0* 2.0* --APTT -- -- 39.8* --NA 148* -- -- 136K 3.2* -- -- 3.5CHLOR 110 -- -- 98CO2 26 -- -- 24BUN 14 -- -- 12CREAT 0.68* -- -- 0.62*GLUC 158* -- -- 151*CA 8.2* -- -- 8.7MG 2.4 2.3 -- 2.0P 2.3* 2.1* -- 2.2*Liver Function, Amylase, AND LipaseRecent Labs 08/15/1803TPROT 6.1 6.4ALB 2.5* 2.5*ALT 90* 205*AST 36 74*ALKPHOS 304* 515*TBILI 1.1 1.7*Intake/Output Summary (Last 24 hours) at 08/17/17 0815Last data filed at 08/17/17 0522 Gross per 24 hourIntake 2570.4 mlOutput 1994 mlNet 575.4 mlSURGERY/PROCEDURE:Procedur e(s) and Anesthesia Type: * ERCP - Monitored Anesthesia CareASSESSMENT AND PLAN:62 year old male with 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 Hospital course remarkable fora-fib, cardiology on consult-Continue surgical (ROMINA) and IR drains-Continue NGT- F/U INR this am- Cardio consulted for new onset A fib- F/U recs-Pip/tazo-ERCP today (will need to confirm for stent placement)-Hold Heparin gtt for the procedure-No [place]-VTE Prophylaxis: SCDs-Routine surgical care: IS, OOBSIGNATURE: Kayleen Gonzales, MDDATE: August 17, 2017TIME: 8:15 AMAtt: As above. Await results of ERCP. Clinically improved.Khadar Duffy MDFebruary 2017 2:42 PM Normal [facility] Phosphoruson 08-17-2017 Phosphate 2.3 mg/dL Low 2.5-4.5 [facility] Comment on above: Performed By: #### P T, PTT, AMYL, CMP, LIPA, PHOS ####[facility] [place], [place] [phone]#### TRANSF ####[facility] [address] [place], [place] [phone] Protimeon 08-17-2017 INR Coag RelTime (Bld) 1.0 {INR} Normal 0.9-1.3 [facility] Comment on above: Result Comment: Tayler min K Antagonist (VKA) Therapeutic Range: INR 2 to 3 (Target INR of 2.5)Note: For patients treated with VKA drugs, such as warfarin, the [employer] [employer] 2012 Guideline recommends a therapeutic INR range of 2 to 3 (target INR of 2.5). This recommendation includes high-risk patients with antiphospholipid syndrome with previous arterial or venous thromboembolism, current-generation mechanical or bioprosthetic aortic heart valve replacement.Note: Patients with mechanical aortic valve replacement and additional risk factors for thromboembolic events (atrial fibrillation, previous thromboembolism, LV dysfunction, hypercoagulable conditions) or an older generation mechanical AVR (i.e., ball in-Cage) or any mechanical MVR should have a INR therapeutic range of 2.5 to 3.5 (target INR of 3).Keegan GH, et al. Chest 2012, 141:7S-47SFelice RA, et al. [facility] 2017, 70: 252-289 Performed By: #### P T, PTT, AMYL, CMP, LIPA, PHOS ####[address] [phone]#### TRANSF ####[place] [address] [place], [place] [phone] PT Sec 10.6 sec Normal 9.7-13.0 [facility] Comment on above: Performed By: #### P T, PTT, AMYL, CMP, LIPA, PHOS ####[address] [phone]#### TRANSF ####[address] [phone] XR ERCP READ ONLYon 08-17-19 18 XR ERCP READ ONLY * * *Final Report* * *DATE OF EXAM: Aug 17 2017 5:09PM FVO [id number] - XR ERCP READ ONLY / REASON: ABDOMINAL PAIN/ERCP * * * * Physician Interpretation * * * * XR ERCP READ ONLYPROVIDED HISTORY: ABDOMINAL PAIN/ERCPCOMPARISON: No previous similar exams are available for comparisonTECHNIQUE: 7 spot views were obtained of the abdomen. Fluoroscopic Radiation Summary:Plane A, Air Kerma: 134.0 mGyDose Area Product (DAP): 0.0 mGy*nmO3Ulrawk time: 6:57 min:secRESULT: Images demonstrate an endoscope with contrast administration. A small amount of contrast is seen. The biliary system is not well opacified.IMPRESSION: Fluoroscopic assistance for ERCP procedureTranscriptionist: NII Transcribe Date/Time: Aug 18 2017 8:33ADictated by : REJI PATEL MDThis examination was interpreted and the report reviewed and electronically signed by: REJI PATEL MD on Aug 18 2017 8:34AM [id number] Normal [facility] CBCon 08-16-2017 Erythrocyte distribution width Auto Ratio (RBC) 15.4 % High 11.5-15.0 [facility] Comment on above: Performed By: #### P T, PTT, AMYL, CMP, LIPA, PHOS ####[place] [address]#### TRANSF ####[place] [phone] Erythrocytes (RBC) 3.49 10*6/uL Low 4.20-6.00 [facility] Comment on above: Performed By: #### P T, PTT, AMYL, CMP, LIPA, PHOS ####[place] [address]#### TRANSF ####[place] [phone] Hematocrit (HCT) 29.9 % Low 39.0-51.0 [facility] Comment on above: Performed By: #### P T, PTT, AMYL, CMP, LIPA, PHOS ####[place] [address]#### TRANSF ####[place] [phone] Hemoglobin mass conc (Bld) 9.8 g/dL Low 13.0-17.0 [facility] Comment on above: Performed By: #### P T, PTT, AMYL, CMP, LIPA, PHOS ####[place] [address]#### TRANSF ####[place] [phone] MCH 28.1 pG Normal 26.0-34.0 [facility] Comment on above: Performed By: #### P T, PTT, AMYL, CMP, LIPA, PHOS ####[place] [address]#### TRANSF ####[place] [phone] MCHC mass conc (RBC) 32.8 g/dL Normal 30.5-36.0 [facility] Comment on above: Performed By: #### P T, PTT, AMYL, CMP, LIPA, PHOS ####[place] [address]#### TRANSF ####[place] [phone] MCV 85.7 fL Normal 80.0-100.0 [facility] Comment on above: Performed By: #### P T, PTT, AMYL, CMP, LIPA, PHOS ####[place] [address]#### TRANSF ####[place] [phone] Platelet mean volume (PMV) 10.9 fL Normal 9.0-12.7 [facility] Comment on above: Performed By: #### P T, PTT, AMYL, CMP, LIPA, PHOS ####[place] [address]#### TRANSF ####[place] [phone] Platelets 335 10*3/uL Normal 150-400 [facility] Comment on above: Performed By: #### P T, PTT, AMYL, CMP, LIPA, PHOS ####[place] [address]#### TRANSF ####[place] [phone] WBC (Leukocytes) 11.42 10*3/uL High 3.70-11.00 [facility] Comment on above: Performed By: #### P T, PTT, AMYL, CMP, LIPA, PHOS ####[facility] [place], [place] [phone]#### TRANSF ####[facility] [address] [place], [place] [phone] CONSULTon 08-16-2017 CONSULT HNO ID: [id number] thor: Jessee Lottervice: Cardiovascular DiseaseAuthor Type: PhysicianType: ConsultsFiled: 08/16/2017 4:39 PMNote Text:CONSULT: CARDIOLOGY SERVICESERVICE DATE: August 16, 2017SERVICE TIME: 3:56 PMCONSULTING PHYSICIAN: Dr. Jessee MayorgaPCP: No primary care provider on file.ATTENDING: Michael Rockwell FOR CONSULT: ArrhythmiasASSESSMENT AND PLAN:Principal Problem:Atrial fibrillation.Persistent AF, ventricular rates +/- 110.Patient denies awareness.Hx of PAF, first episode 10/2016 in the setting of GI bleed. Treated withamiodarone which was stopped one month ago.On heparin infusion. Inr is elevated 2.0On home dose coreg 12.5 BIDPlan:Switch to metoprolol 25 TID.Monitor.CAD. Remote MD, PCI in 2013.No angina.Duodenal mass and obstructive jaundices/p perc drain placement.-plan is for ERCP with possible duodenal stent placement tomorrow.[facility] STAFF PHYSICIAN NOTE OF PERSONAL INVOLVEMENT IN CAREIMPRESSION:PLAN:As aboveDiscuss his cardiac status with the surgical team black last night oncethe ERCP performed tomorrow reevaluate for anticoagulationNow continue beta blockers to control the ventricular response. 2-Dechocardiogram to assess the left atrial size and LV size and functionHistory of CAD stable no anginaThank you very much for allowing me to participate in this patient's careI have reviewed the documentation obtained and documented by the NursePractitioner and have reviewed and updated the problem list asappropriate. I have personally performed a face to face assessment of thepatient and have personally participated in the figueroa components. I havediscussed the case and management of the patient's care.STAFF PHYSICIAN: Jessee Mayorga, MDDATE OF SERVICE: August 16, 2017TIME OF SERVICE: 4:36 [facility] COMPLAINT: abdominal painRocio Jackson is a 62 year old male, he lives in [facility] [place]. 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 Followed by general surgery.s/p CT guided drainage of abdominal abscess on 08/15.Tachycardic yesterday, placed on telemetry and has been in persistentatrial fibrillation since that time. Intermittent hypotension hasresponded to IV fluids. Maintained on his home dose coreg 12.5 BID.Patient reports having acute GI bleed, required 5 Units of blood in October.He had atrial fibrillation for the first time than.Treated with amiodarone. He states the amiodarone was stopped one monthago. There had been no AF recurrence that he was aware of. He was notstarted on blood thinners.?MEDICATIONS:Arnol nathan Facility-Administered Medications:dextrose 5% in NaCl 0.9% iv infusion 125 mL/hr INTRAVENOUS CONTINUOUS0.9% NaCl 10 mL 10 mL INTRAVENOUS q 12 H0.9% NaCl 20 mL 20 mL INTRAVENOUS PRNacetaminophen 650 mg tab(s) (TYLENOL) 650 mg ORAL q 6 H PRN[START ON 08/17/2017] ciprofloxacin 400 mg in D5W 200 mL (CIPRO) 400 mgINTRAVENOUS ONCEoxyCODONE IR 5 mg tab(s) (ROXICODONE) 5 mg ORAL q 4 H PRNiv contrast (radiology procedure) INTRAVENOUS DIRECTED PRNcarvedilol 12.5 mg tab(s) (COREG) 12.5 mg ORAL BID w MEALSnitroglycerin sublingual 0.4 mg tab(s) (NITROQUICK) 0.4 mg SUBLINGUAL q 5MIN PRNdextrose 40 % 15 g (INSTA-GLUCOSE) 15 g ORAL PRNOrglucagon 1 mg injection (GLUCAGEN) 1 mg INTRAMUSCULAR PRNOrdextrose 50% in water 25 mL syringe 12.5 g INTRAVENOUS PRNinsulin lispro injection (rapid acting) (HumaLOG) SUBCUTANEOUS q 6 Haspirin, enteric coated 162 mg tab(s) (ASPIRIN, ENTERIC COATED) 162 mgORAL DAILYHYDROmorphone 0.2 mg injection (DILAUDID) 0.2 mg INTRAVENOUS q 2 H PRNPAST MEDICAL HISTORYDiagnosis Date- Bleeding ulcer 11/15/2016 required 5 blood transfusions- Diabetes mellitus (HCC) 2016- Glaucoma- Hypertension- Myocardial infarction 05/15/2011PAST SURGICAL HISTORYProcedure Laterality Date- ANGIOPLASTY HX 05/15/2011 2 stents s/p MD;[facility]- CHOLECYSTECTOMY 08/11/2017 [facility]- PICC LINE INSERT/CONSULT 08/16/2017Past Family History:non contributorySocial History Marital status: Unknown Spouse name: Years of education: Number of children:Social History Main Topics Smoking status: Former Smoker Packs/day: 0.00 Years: 0.00 Types: Cigarettes Quit date: 2010 Smokeless status: Never Used Alcohol use: Yes 1.5 oz/week 1 Cans of Beer (12oz) per week Comment: occasional beer Drug use: NoALLERGIESNo Known AllergiesCOMPLETE REVIEW OF SYSTEMS:The following systems were reviewed with the patient, and are unremarkableother than as described below.SYSTEMIC: No fever, chills, or change in weight or appetiteHEENT: No recent change in vision or hearing.GI: See HPIGU: No recent hematuria or dysuria.SKIN: No recent itching or eruption.PSYCH: No recent active anxiety or depression.HEMATOLOGY/ONCOLO GY: No recent diagnosis of bleeding or cancer.NEURO: No recent TIA, stroke or seizures.RHEUMATOLOGY: No recent active connective tissue disease.ENDOCRINE: No recent diagnosis of DM or thyroid disease.PHYSICAL EXAM:BP 113/66 Pulse 96 Temp (Src) 99.3 (Oral) Resp 16 Ht 5' 8 (1.73m) Wt 192 lb 9.6 oz (87.4kg) SpO2 95% BMI 29.29 kg/(m2).Pleasant, comfortable, not in acute distress.Awake, alert, oriented times 3.Moves all extremities.NECK: Supple, no JVDLUNGS: Clear to auscultation bilaterally.CARDIAC: PMI present, RRR, S1 and S2, no S3 or S4, no additional heartsounds or murmurs.ABDOMEN: generalized tenderness.EXTREMITIES: No edema.PULSES: Peripheral pulses present.CBC, Coags, BMP, Mg, PhosRecent Labs 08/15/1820WBC 11.42* 12.79* 16.33* -- -- 11.53*HB 9.8* 9.7* 11.1* -- -- 10.7*HCT 29.9* 29.3* 33.4* -- -- 31.7*PLT 335 302 328 -- -- 285INR 2.0* 2.0* -- -- 1.5* 1.5*APTT -- 39.8* -- -- 31.6 30.2NA -- -- 136 -- 133* 132*K -- -- 3.5 -- 3.8 4.2CHLOR -- -- 98 -- 96* 96*CO2 -- -- 24 -- 22* 23BUN -- -- 12 -- 9* 9*CREAT -- -- 0.62* -- 0.61* 0.63*GLUC -- -- 151* -- 147* 149*CA -- -- 8.7 -- 8.5 8.9MG 2.3 -- 2.0 -- -- --P 2.1* -- 2.2* 2.4* 2.3* 2.3*Liver Function, Amylase, AND LipaseRecent Labs 08/14/1803TPROT 6.4 6.4 7.0ALB 2.5* 2.9* 3.1*ALT 205* 370* 418*AST 74* 285* 395*ALKPHOS 515* 727* 832*TBILI 1.7* 2.3* 2.7*AMYLASE -- -- 59LIPASE -- 43 58Cardiac EnzymesDATA:Diagnostic tests reviewed for today's visit:Most recent labs and imaging results.Most recent EKGTelemetrySIGNATURE: Sabrina Conchita, DIVIDEND DEPOSIT VOUCHER CLERK PATIENT NAME: Rocio Sibley: August 16, 2017 : 3:56 PM PAGER/CONTACT #: [facility] Magnesiumon 08-16-2017 Magnesium 2.3 mg/dL Normal 1.7-2.6 [facility] Comment on above: Performed By: #### P T, PTT, AMYL, CMP, LIPA, PHOS ####[facility] [place] [phone]#### TRANSF ####[facility] [address] [place] [phone] NURSING PROGon 08-16-2017 NURSING PROG HNO ID: [id number] thor: Nolvia KenRn) Genevieve, RNService: PICC TeamAuthor Type: Registered NurseType: Nursing Progress NoteFiled: 08/16/2017 8:05 AMNote Text:PICC/VASCULAR ACCESS PROGRESS NOTESERVICE DATE: 08/16/2017SERVICE TIME: 8:00 amPICC line ordered, heparin gtt currently on hold, plan for patient toreceive TPN, Double lumen chloraguard PICC recommended. Will continue tofollow.SIGNATURE: Nolvia Vallejo RN PATIENT NAME: Rocio Sibley: August 16, 2017 : 8:03 AM PAGER/CONTACT #: [phone] [facility] NURSING PROG HNO ID: [id number] thor: Shavonne Mays, RNService: NursingAuthor Type: Registered NurseType: Nursing Progress NoteFiled: 08/16/2017 6:50 PMNote Text: Nursing Progress NotePatient Name: Rocio JacksonMRN: [id number] Location: [address]/[id number] ____Daily Note:0730: SROC alpha paged re: PT/INR result 2.0 from morning lab work,heparin gtt order remains active, requesting clarification. A-fib oncardiac monitor, HR 110-120's.0830: Call back recv'd, okay to start heparin gtt per nomogram persurgical resident Maikol. PICC team @ bedside, will start heparingtt once procedure is completed. New orders recv'd, POC includes:cardiology consult for A-fib, IVF fluid change, K phos replacement, and tohold heparin gtt @ 0200 Thursday 08/17 for procedure. Pt remains NPO x meds,NGT to LCS maintained, draining brown fluid.0945: Heparin gtt initiated @ 1000 units/hr per EMAR, order recv'd forvitamin K, paged SROC to clarify, Juan Alberto Lassiter states to give vitamin Kwith heparin gtt. Pt A+Ox3, flat affect. Skin jaundiced. Medicated forc/o upper ABD pain. Lap sites x 3 COMMITTEE MEMBER with skin glue, no drainage.1245: Dr Rex bourne (covering for Dr Jolley) and discussed RNconcerns for INR 2.0 with heparin gtt, and vitamin K order. Per Dr Duffy,stop heparin gtt and admin vitamin K. Spoke with DIVIDEND DEPOSIT VOUCHER CLERK for GI service,repeat PT/INR ordered for 1200 tomorrow 08/17 prior to ERCP scheduled abt8092, and if heparin gtt restarted prior to tomorrow, stop [address] Duffy discussed POC and treatment avenues with pt and 2sisters at bedside. Pt remains in A-fib, HR 110's, cardiology consult forATC treatment.1530: RUQ acordian drain flushed with 5 cc sterile saline per order,draining brown bilious output. RLQ ROMINA drain remains patent with yellowoutput. Pt remains in A-fib, HR 110's. Pt assisted up to chair, bathprovided. Dr Mayorga rounded, updated him on POC, states will possiblyrestart heparin gtt tomorrow after procedure.1700: Pt medicated with metoprolol 25 mg PO per new order, HR [id number]'s. SROC paged for chlorasetic spray and throat lozenge for pt c/othroat irritation from NGT.1800: Blood glucose 139, no SSI coverage required. Safety maintained.Pt resting in bed.This note was completed by: Shavonne Mays RN [facility] NURSING PROG HNO ID: [id number] thor: Deneen KenRn) Melanie, MOUSTAPHAervice: (none)Author Type: Registered NurseType: Nursing Progress NoteFiled: 08/16/2017 4:44 AMNote Text: Nursing Progress NotePatient Name: Rocio HayesN: [id number] Location: [place] [address]/GA-[id number] ____Daily Note:Late entry 08/15 Labs drawn for start of heparin drip. INR2.0 Order to notify team when INR equal to or greater than 2.0.0350: Team notified that INR 2.0. Order to hold heparin drip until morninglabs back with INR results. Will continue to monitor.0428: Text page to surgery for bladder scan of 665 ml and change in NGcolor from bile to brownish mgx2946: SROC up to see and assess pt. Continue to monitor bladder as pt ishaving no symptoms of discomfort at this time. Wait to start heparin dripuntil Am labs. Continue to monitor NG output.This note was completed by: Deneen Navarro RN [facility] PLAN OF CAREon 08-16-2017 PLAN OF CARE HNO ID: [id number] thor: Gissell Michael) Riyaervice: GastroenterologyAuthor Type: Nurse PractitionerType: Plan of CareFiled: 08/16/2017 12:58 PMNote Text:In anticipation of ERCP tomorrow:INR notedPatient will need Vitamin K today and stat INR one hour prior to procedure(ordered)Stop Heparin drip 6 hrs prior to procedure as per surgeryDiscussed with Dr. Candelaria you for allowing us to participate in the care of Mr. Jackson. Pleasecall with any questions or concerns.Mónica Clarkabbott [facility] GastroenterologyOffice: Cell: [facility] PROCEDUREon 08-16-2017 PROCEDURE HNO ID: [id number] thor: Luis (Rn) Edmund, RNService: PICC TeamAuthor Type: Registered NurseType: ProceduresFiled: 08/16/2017 9:07 AMNote Text:PICC NURSE INSERTION NOTEDATE OF PROCEDURE: August 16, 2017TIME OF PROCEDURE: 0825ORDERING PHYSICIAN: Dr. HooperFORMED CONSENT: Obtained per hospital policy.INDICATION FOR LINE PLACEMENT: Poor veins/circulatory systemCONDITION OF LINE PLACEMENT: SterilePRIMARY PROCEDURALIST: Nolvia Vallejo RNASSISTANT: Luis Shaffer RnPRE-PROCEDURE REVIEWALLERGIESNo Known AllergiesKnown History of Venous Thrombosis: NoKnown History of Permanent Pacemaker or Automated Implanted CardiacDevice: NoPrevious Breast Surgery of Lymph Node Dissection: NoHistory of Renal Disease with Arterio-Venous Fistula in Place or Planned:NoUltrasound Assessment Complete: YesPROCEDURE NARRATIVESAFE PRACTICEHand Hygiene per Hospital Policy: YesSkin Preparation Unit Dose Applicator Used: Chloraprep (CHG + alcohol),allowed to dry.Procedure Surface Cleansed with Antimicrobial Wipes: YesBarriers Used by Proceduralist and all Assisting Personnel: YesUNIVERSAL PROTOCOL / SAFETY CHECKLISTProcedure to be performed: PICC insertion under US guidanceSign in Communication: CompletedTime Out: Team Confirms the Correct Patient, Correct Procedure, CorrectSite and Site Marking, Correct Position (if applicable), Prep and Dry Time(if applicable). Time: 0825Affirmation of Time Out: YESSign Out Discussion: Shayan Shaffer RNCATHETER PLACEMENTBrand: Choloragard Lot: [id number] of Lumens: 2Type of PICC: Power Injectable PICCLumen Size: 5.5 FrenchPLACEMENT TECHNIQUELidocaine: Yes. Strength: 1% Volume 2 ccModified Seldinger Technique Used to Place Line via the Right BasilicUltrasound Guidance: YesNumber of Attempts at Insertion: 1Internal Length: 44 cm External Length: 1 cm Trim Length: 45 cmMid-Arm Circumference Above Insertion Site: 30 centimetersPost Insertion Pain Level Related to Procedure: 0Action Taken to Address Pain: None neededVerified Placement: Blood return, Ultrasound and Chest X-ray ordered andpendingLine was Flushed with 20 cc normal salineLine Secured with: Securement deviceSterile Dressing Applied and Dated: YesSterile Caps on all Ports Prior to Leaving Procedure Area: YesSPECIMENS: NoneCOMPLICATIONS: NonePatient Education Materials: Placed in chartThe [facility] Central Line Insertion checklist, attached to theCentral Line-Associated Bloodstream Infection Prevention Policy, wasutilized during this procedure.QUESTIONS or PROBLEMS: Page [phone] weekendSIGNATURE: Luis Shaffer RN PATIENT NAME: Rocio FrischDATE: August 16, 2017 : 8:35 AM PAGER/CONTACT PHONE: [facility] PROGRESSon 08-16-2017 PROGRESS HNO ID: [id number] thor: Lourdes Earle: GastroenterologyAuthor Type: PhysicianType: Progress NotesFiled: 08/16/2017 6:45 PMNote Text:[facility] Progress NoteSERVICE DATE: August 16, 2017SUBJECTIVENo abd pain, n/v, f/c. Afib overnight. Passing gas. No BM.OBJECTIVEMEDICATIONSCurre osteopathic hospital of [facility] medications:potassium phosphate 30 mmol in NaCl 0.9% 250 mL 30 mmol INTRAVENOUS ONCEdextrose 5% in NaCl 0.9% iv infusion 125 mL/hr INTRAVENOUS CONTINUOUSphytonadione (vitamin K1) 10 mg in D5W 50 mL 10 mg INTRAVENOUS ONCE0.9% NaCl 10 mL 10 mL INTRAVENOUS q 12 H0.9% NaCl 20 mL 20 mL INTRAVENOUS PRNacetaminophen 650 mg tab(s) (TYLENOL) 650 mg ORAL q 6 H PRN[START ON 08/17/2017] ciprofloxacin 400 mg in D5W 200 mL (CIPRO) 400 mgINTRAVENOUS ONCEoxyCODONE IR 5 mg tab(s) (ROXICODONE) 5 mg ORAL q 4 H PRNiv contrast (radiology procedure) INTRAVENOUS DIRECTED PRNcarvedilol 12.5 mg tab(s) (COREG) 12.5 mg ORAL BID w MEALSnitroglycerin sublingual 0.4 mg tab(s) (NITROQUICK) 0.4 mg SUBLINGUAL q 5MIN PRNdextrose 40 % 15 g (INSTA-GLUCOSE) 15 g ORAL PRNglucagon 1 mg injection (GLUCAGEN) 1 mg INTRAMUSCULAR PRNdextrose 50% in water 25 mL syringe 12.5 g INTRAVENOUS PRNinsulin lispro injection (rapid acting) (HumaLOG) SUBCUTANEOUS q 6 Haspirin, enteric coated 162 mg tab(s) (ASPIRIN, ENTERIC COATED) 162 mgORAL DAILYHYDROmorphone 0.2 mg injection (DILAUDID) 0.2 mg INTRAVENOUS q 2 H PRNPE 7508/16/1807BP: 108/64 117/60 113/66Pulse: 92 (!) 128 92 96Resp: 18 17 16Temp: 36.9 ?C (98.4 ?F) 36.7 ?C (98 ?F) 37.4 ?C (99.3 ?F)TempSrc: Oral Oral OralSpO2: 92% 92% 95%Weight:Height:Body mass index is 29.28 kg/(m2).GENERAL: NAD, [id number]: PERRLA, EOMI, normal OPCV: RRR, normal S1, S2, no mrgABDOMEN: Soft, non-tender, non-distended, normoactive BS, ROMINA drain w bileEXT: wwp, no cceNeuro: grossly nonfocalLABSreviewedIMAGINGr eviewedASSESSMENT AND PLANMr. Ventura is a 62 year old male with a history notable for PAFib not onanticoag as outpt, CAD s/p PCI x2 2013, type 2 DM on metformin, HTN,glaucoma. He underwent lap richelle for ?cholecystitis at OSH on 08/11 whichwas c/b bile leak. Attempt at OSH ERCP showed an ulcerated mass injunction of D1/D2, no visualization of ampulla; bx pending of duodenalmass. IR drainage of bilomas completed.-EGD w/ ERCP tomorrow; if latter unsuccessful, may place duodenal stentfor gastric outlet obstruction and require PTC-agree with vit K; INR likely elevated 2/2 bile leak-Recheck INR in AM; may need FFP if INR>1.5 in AM-Hold at least heparin gtt 6 hours prior to ERCP-f/u on bx [facility] allowing us to participate in the care of this patient.Please call with any further questions or concerns.Lourdes Ferrari MDSnoqualmie Gastroenterology#: [phone]: Lourdes Ferrari MD PATIENT NAME: Rocio VizcarraTE: August 16, 2017 : 2:42 PM PAGER: [phone] [facility] PROGRESS HNO ID: [id number] thor: Khadar Guo: General SurgeryAuthor Type: PhysicianType: Progress NotesFiled: 08/16/2017 1:47 PMNote Text: SURGERY INPATIENT PROGRESS NOTESName: Rocio JacksonMRN: [id number] and Plan:62 year old male with 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 Hospital course remarkable fora-fib, cardiology on consult-Continue surgical (ROMINA) and IR drains-Continue NGT-Pip/tazo-ERCP with stent tomorrow-Heparin gtt, need to hold 6 hours pre procedure tomorrow-No [place]-VTE Prophylaxis: SCDs-Routine surgical care: IS, OOBS: Resting well. A-fib yesterday with mild hypotension, improved withfluid bolus. BM-, Flatus+. Pain well controlled. No nausea. Denies SoB/CP.O:Current hospital medications:potassium phosphate 30 mmol in NaCl 0.9% 250 mL 30 mmol INTRAVENOUS ONCE0.9% NaCl 10 mL 10 mL INTRAVENOUS q 12 H0.9% NaCl 20 mL 20 mL INTRAVENOUS PRNacetaminophen 650 mg tab(s) (TYLENOL) 650 mg ORAL q 6 H PRN[START ON 08/17/2017] ciprofloxacin 400 mg in D5W 200 mL (CIPRO) 400 mgINTRAVENOUS ONCEheparin iv infusion (LOW DOSE ACS/NOMOGRAM) 25,000 units in NaCl 0.45% 250mL PREMIX 0-3,000 Units/hr INTRAVENOUS CONTINUOUSheparin RATE CHANGE bolus 1,000-4,000 Units for subtherapeutic apttresults 1,000-4,000 Units INTRAVENOUS PRNoxyCODONE IR 5 mg tab(s) (ROXICODONE) 5 mg ORAL q 4 H PRNiv contrast (radiology procedure) INTRAVENOUS DIRECTED PRNcarvedilol 12.5 mg tab(s) (COREG) 12.5 mg ORAL BID w MEALSnitroglycerin sublingual 0.4 mg tab(s) (NITROQUICK) 0.4 mg SUBLINGUAL q 5MIN PRNdextrose 40 % 15 g (INSTA-GLUCOSE) 15 g ORAL PRNglucagon 1 mg injection (GLUCAGEN) 1 mg INTRAMUSCULAR PRNdextrose 50% in water 25 mL syringe 12.5 g INTRAVENOUS PRNinsulin lispro injection (rapid acting) (HumaLOG) SUBCUTANEOUS q 6 Haspirin, enteric coated 162 mg tab(s) (ASPIRIN, ENTERIC COATED) 162 mgORAL DAILYHYDROmorphone 0.2 mg injection (DILAUDID) 0.2 mg INTRAVENOUS q 2 H PRNNaCl 0.9% iv infusion 100 mL/hr INTRAVENOUS CONTINUOUSBP 117/60 Pulse 92 Temp 36.7 ?C (98 ?F) (Oral) Resp 17 Ht 172.7 cm(5' 8 ) Wt 87.4 kg (192 lb 9.6 oz) SpO2 92% BMI 29.28 kg/f1Jwdhfg/Output Summary (Last 24 hours) at 08/16/17 0835Last data filed at 08/16/17 0631 Gross per 24 hourIntake 3079 mlOutput 2640 mlNet 439 mlGeneral Appearance: NADAbdomen: soft, non-tender, mild distention. Drains in place, biliousoutput.Akbar Lassiter MDGENERAL SURGERY PGY-48:35 AM08/16/2017*A review of daily goals, interventions, and plan of care with themultidisciplinary team and patient has been conducted. The patient?sconcerns have been addressed and he/she agrees to proceed with today?splan of care.Attending: above. Feels and looks much better s/p perc drainplacement.INR up to 2 - no hx of anticoagulation.new onset atrial fibrillation.ERCP planned for tomorrow. Will give vit K, and stop heparin gtt as INRis already therapeutic.May need FFP if INR still high tomorrow.My concern is that he may have duodenal obstruction, in which case ERCPwouldn't be able to be completed.Will await ERCP results tomorrow.Khadar Duffy MDFebruary 2017 1:47 PM [facility] PT EDon 08-16-2017 PT ED HNO ID: [id number] thor: Luis (Rn) Edmund, RNService: PICC TeamAuthor Type: Registered NurseType: Patient EducationFiled: 08/16/2017 8:34 AMNote Text:PATIENT EDUCATION TOPIC: PROCEDURE / SURGERY: Procedure/Surgery: PICCinsertion under US guidancePATIENT NAME: Rocio HayesN: [id number] LOCATION: [place] [id number] S TO LEARNCOGNITIVE ABILITY: Alert and orientedMOTIVATION TO LEARN: EagerInterestedFAMILY SUPPORT: High - Very involved in pt careINSTRUCTION PROVIDED TO: Patient and Family memberPATIENT LEARNS BEST BY: Individual InstructionVerbal InstructionFACTORS AFFECTING LEARNING: NonePHYSICAL LIMITATIONS AFFECTING LEARNING: NoneLEARNING RESPONSEDIAGNOSIS: ADULT: Duodenal obstructionPATIENT/FAMILY RESPONSE: Verbalizes understanding of: [id number]-S orrect actions to take to reduce post procedurecomplicationsPRE-OK OCEDURE INSTRUCTIONS-Correct action to take to follow pre-procedureinstructionsMET HOD OF INSTRUCTION: Individual instructionVerbal instructionFOLLOW-UP PLAN: Patient instructed to call with any further issuesFollow-up with Primary CareINSTRUCTIONAL AIDS USED: NASUPPLEMENTAL MATERIAL PROVIDED TO PATIENT: NoneREFERRAL (RECOMMENDATION): NoneElectronically Signed By: Luis Shaffer RN [facility] Phosphoruson 08-16-2017 Phosphate 2.1 mg/dL Low 2.5-4.5 [facility] Comment on above: Performed By: #### P T, PTT, AMYL, CMP, LIPA, PHOS ####[facility] [place], [place] [phone]#### TRANSF ####[facility] [place], [place] [phone] Protimeon 08-16-2017 INR Coag RelTime (Bld) 2.0 {INR} High 0.9-1.3 [facility] Comment on above: Result Comment: Tayler min K Antagonist (VKA) Therapeutic Range: INR 2 to 3 (Target INR of 2.5)Note: For patients treated with VKA drugs, such as warfarin, the [employer] [employer] 2012 Guideline recommends a therapeutic INR range of 2 to 3 (target INR of 2.5). This recommendation includes high-risk patients with antiphospholipid syndrome with previous arterial or venous thromboembolism, current-generation mechanical or bioprosthetic aortic heart valve replacement.Note: Patients with mechanical aortic valve replacement and additional risk factors for thromboembolic events (atrial fibrillation, previous thromboembolism, LV dysfunction, hypercoagulable conditions) or an older generation mechanical AVR (i.e., ball in-Cage) or any mechanical MVR should have a INR therapeutic range of 2.5 to 3.5 (target INR of 3).Ericyatt GH, et al. Chest 2012, 141:7S-47SNishimivette RA, et al. [facility] 2017, 70: 252-289 Performed By: #### P T, PTT, AMYL, CMP, LIPA, PHOS ####[place] [address]#### TRANSF ####[address] [phone] PT Sec 19.5 sec High 9.7-13.0 [facility] Comment on above: Performed By: #### P T, PTT, AMYL, CMP, LIPA, PHOS ####[place] [phone]#### TRANSF ####[address] [phone] XR CHEST 1V PORT POST PICC - NBon 08-16-2017 XR CHEST 1V PORT POST PICC -NB * * *Final Report* * *DATE OF EXAM: Aug 16 2017 10:13AM FVX [id number] - XR CHEST 1V PORT POST PICC -NB / REASON: PICC (peripherally inserted central catheter) in place * * * * Physician Interpretation * * * * EXAMINATION: Single View (AP) Portable Chest RadiographClinical History/Indication: PICC (peripherally inserted central catheter) in place; Check tip position following PICC placement.M: [id number]: 08/13/2017RESULT:1. Lines / Tubes: a. Interval placement of right central venous catheter (PICC); tip is projected over the expected location of the superior vena caval-atrial junction. b. Other Lines/Tubes? There is a nasogastric tube extending into the upper abdomen.2. Lungs / Pleura: There are bibasilar opacities with associated effusions slightly more prominent.3. Cardiomediastinal silhouette: Stable4. Other: N/AIMPRESSION:Interval placement of right PICC. If catheter demonstrates ability to aspirate blood and inject with ease, it is acceptable for venous access use.Ergonomic Specialist: PSCShefali Transcribe Date/Time: Aug 16 2017 10:15ADictated by : AURORA ROMERO MDThis examination was interpreted and the report reviewed and electronically signed by: AURORA ROMERO MD on Aug 16 2017 10:16AM [id number] [facility] ALLIED HEALTHon 08-15-2017 ALLIED HEALTH HNO ID: [id number] thor: Jennifer Win CtService: (none)Author Type: (none)Type: Allied HealthFiled: 08/15/2017 2:49 PMNote Text: Radiology Service Progress NotePATIENT NAME: Rocio JacksonMRN: [id number] OF SERVICE: August 15, 2017TIME: 2:48 PMPATIENT IDENTITY VERIFICATION COMPLETED USING TWO (2) METHODS: Patientconfirmed name verbally and ID band matches..PATIENT GENDER DATA: MalePATIENT RELEVANT IMPLANT DATA REVIEWED: Not ApplicableRADIOLOGY DEPARTMENT: CT; Exam(s) Completed: ABSCESS DRAINAGEPERIPHERAL IV DATA: Not applicableSIGNED BY: Jennifer Win CtFebruary 2017 2:48 PM [facility] BRIEF OP NOTon 08-15-2017 BRIEF OP NOT HNO ID: [id number] thor: Reji Guillen: RadiologyAuthor Type: PhysicianType: Brief Op NoteFiled: 08/15/2017 2:46 PMNote Text:Radiology Brief Procedure NoteService date: August 15, 2017Service start time: 210 PMService end time: 2:45 PMPre procedure diagnosis: Abdominal abscessProcedure Performed: CT guided abscess drainage.Post procedure diagnosis: Same as pre procedure diagnosis.Significant Findings: Epigastric abscessSpecimens obtained: 5 FR Yueh, 8 Fr pigtail used. 100+ cc os dark redfluid serous obtained, nearly drained.Anesthesia used: 1% lidocaine. Mod sedationEstimated Blood Loss: Minimal, less than 1 ml.Complications: NoneSIGNATURE: Reji Patel MD PATIENT NAME: Rocio JacksonDATE: August 15, 2017 : 2:45 PM PAGER/CONTACT #: [phone] Normal [facility] Blood Cultureon 08-15-2017 Bacteria culture Sp. Request/Comment: - The blood culture bottles are underfilled. Adding volume lower or higher than the 8 to 10 mL per bottle, which is the manufacturers recommended volume, may adversely affect the recovery and/or detection of organisms. 10.9MLCulture Result - No growth 5 days Normal [facility] Comment on above: Performed By: #### P T, PTT, AMYL, CMP, LIPA, PHOS ####[place] [address]#### TRANSF ####[place] [phone] Bacteria culture Culture Result - No growth 5 days Normal [facility] Comment on above: Performed By: #### P T, PTT, AMYL, CMP, LIPA, PHOS ####[place] [address]#### TRANSF ####[place] [address] [place] [phone] CBCon 08-15-2017 Erythrocyte distribution width Auto Ratio (RBC) 15.2 % High 11.5-15.0 [facility] Comment on above: Performed By: #### P T, PTT, AMYL, CMP, LIPA, PHOS ####[place] [address]#### TRANSF ####[place] [phone] Erythrocytes (RBC) 3.46 10*6/uL Low 4.20-6.00 [facility] Comment on above: Performed By: #### P T, PTT, AMYL, CMP, LIPA, PHOS ####[place] [address]#### TRANSF ####[place] [phone] Hematocrit (HCT) 29.3 % Low 39.0-51.0 [facility] Comment on above: Performed By: #### P T, PTT, AMYL, CMP, LIPA, PHOS ####[place] [address]#### TRANSF ####[place] [phone] Hemoglobin mass conc (Bld) 9.7 g/dL Low 13.0-17.0 [facility] Comment on above: Performed By: #### P T, PTT, AMYL, CMP, LIPA, PHOS ####[place] [address]#### TRANSF ####[place] [phone] MCH 28.0 pG Normal 26.0-34.0 [facility] Comment on above: Performed By: #### P T, PTT, AMYL, CMP, LIPA, PHOS ####[place] [address]#### TRANSF ####[place] [phone] MCHC mass conc (RBC) 33.1 g/dL Normal 30.5-36.0 [facility] Comment on above: Performed By: #### P T, PTT, AMYL, CMP, LIPA, PHOS ####[place] [address]#### TRANSF ####[address] [place] [phone] MCV 84.7 fL Normal 80.0-100.0 [facility] Comment on above: Performed By: #### P T, PTT, AMYL, CMP, LIPA, PHOS ####[place] [phone]#### TRANSF ####[place] [phone] Platelet mean volume (PMV) 10.2 fL Normal 9.0-12.7 [facility] Comment on above: Performed By: #### P T, PTT, AMYL, CMP, LIPA, PHOS ####[place] [phone]#### TRANSF ####[place] [phone] Platelets 302 10*3/uL Normal 150-400 [facility] Comment on above: Performed By: #### P T, PTT, AMYL, CMP, LIPA, PHOS ####[address]#### TRANSF ####[place] [phone] WBC (Leukocytes) 12.79 10*3/uL High 3.70-11.00 [facility] Comment on above: Performed By: #### P T, PTT, AMYL, CMP, LIPA, PHOS ####[place] [phone]#### TRANSF ####[place] [phone] Erythrocyte distribution width Auto Ratio (RBC) 15.3 % High 11.5-15.0 [facility] Comment on above: Performed By: #### P T, PTT, AMYL, CMP, LIPA, PHOS ####[place] [phone]#### TRANSF ####[place] [phone] Erythrocytes (RBC) 3.99 10*6/uL Low 4.20-6.00 [facility] Comment on above: Performed By: #### P T, PTT, AMYL, CMP, LIPA, PHOS ####[place] [address]#### TRANSF ####[place] [phone] Hematocrit (HCT) 33.4 % Low 39.0-51.0 [facility] Comment on above: Performed By: #### P T, PTT, AMYL, CMP, LIPA, PHOS ####[place] [address]#### TRANSF ####[place] [phone] Hemoglobin mass conc (Bld) 11.1 g/dL Low 13.0-17.0 [facility] Comment on above: Performed By: #### P T, PTT, AMYL, CMP, LIPA, PHOS ####[place] [address]#### TRANSF ####[place] [address] MCH 27.8 pG Normal 26.0-34.0 [facility] Comment on above: Performed By: #### P T, PTT, AMYL, CMP, LIPA, PHOS ####[place] [address]#### TRANSF ####[place] [phone] MCHC mass conc (RBC) 33.2 g/dL Normal 30.5-36.0 [facility] Comment on above: Performed By: #### P T, PTT, AMYL, CMP, LIPA, PHOS ####[place] [address]#### TRANSF ####[place] [phone] MCV 83.7 fL Normal 80.0-100.0 [facility] Comment on above: Performed By: #### P T, PTT, AMYL, CMP, LIPA, PHOS ####[place] [address]#### TRANSF ####[place] [phone] Platelet mean volume (PMV) 11.9 fL Normal 9.0-12.7 [facility] Comment on above: Performed By: #### P T, PTT, AMYL, CMP, LIPA, PHOS ####[place] [address]#### TRANSF ####[place] [phone] Platelets 328 10*3/uL Normal 150-400 [facility] Comment on above: Performed By: #### P T, PTT, AMYL, CMP, LIPA, PHOS ####[place] [address]#### TRANSF ####[place] [phone] WBC (Leukocytes) 16.33 10*3/uL High 3.70-11.00 [facility] Comment on above: Performed By: #### P T, PTT, AMYL, CMP, LIPA, PHOS ####[place] [phone]#### TRANSF ####[place] [phone] CONSULTon 08-15-2017 CONSULT HNO ID: [id number] thor: Gissell KenBoston Hope Medical CenterLyric SmithkService: GastroenterologyAutvirginia Type: Nurse PractitionerType: ConsultsFiled: 08/15/2017 4:44 PMNote Text: -Attestation signed by Lourdes Ferrari at 08/17/2017 10:00 AMATTENDING NOTE:?I performed a history and physical examination of the patient and supervisedand discussed plan of care and management with the PA/SUPERVISOR SILVERING DEPARTMENT. I reviewed thePA/SUPERVISOR SILVERING DEPARTMENT's note and agree with the documented findings and plan of care.? ?Thank you for allowing us to participate in the care of this patient. Pleasecall with any questions or concerns.Lourdes Ferrari MDSnoqualmie GastroenterologyPaencompass health [facility] [phone] --------CONSULT: [facility] Gastroenterology SERVICESERVICE DATE: 08/15/2017SERVICE TIME: 9:04 AMREASON FOR CONSULT: ERCPREQUESTING PHYSICIAN: Dr. [facility] PHYSICIAN: No primary care provider on file.SubjectiveMr. Jackson is a 62 year old male with PMH of CAD s/p stent x2, type 2 DMon metformin, HTN, glaucoma, PSH of cholecystectomy (08/11/2017, ERCP08/13/17) who was transferred from [facility] for management of partial duodenalobstruction. 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 [facility] 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 He was transferred to [facility] for further evaluationand treatment. Following admission patient developed worsening abdominalpain, abdominal distention. CT scan noted wall thickening involving thedescending duodenum in this patient with a known duodenal mass. ?There isdilatation of the intra and extrahepatic biliary tree and ascites. Patienthas post operative ROMINA drain in place and plan by surgery to replace today.Labs noted Alk phos 727, T bili 2.3, AST 285, ALT 370, and newleukocytosis 11.53-->16.33.Not currently on antibiotics.FUNCTIONAL STATUS: IndependentPAST MEDICAL HISTORYDiagnosis Date- Bleeding ulcer 11/15/2016 required 5 blood transfusions- Diabetes mellitus (HCC) 2016- Glaucoma- Hypertension- Myocardial infarction 05/15/2011PAST SURGICAL HISTORYProcedure Laterality Date- ANGIOPLASTY HX 05/15/2011 2 stents s/p MD;[facility]- CHOLECYSTECTOMY 08/11/2017 [facility]No family history on file.Social HistorySubstance Use Topics- Smoking status: Former Smoker Types: Cigarettes Quit date: 2010- Smokeless tobacco: Never Used- Alcohol use 1.5 oz/week 1 Cans of Beer (12oz) per week Comment: occasional beerPrescriptions Prior to Admission:aspirin, enteric coated (ECOTRIN LOW STRENGTH) 81 mg EC tablet Take 162 mgby mouth once daily. Disp: Rfl: Past Week at Unknown timelisinopril 2.5 mg tablet Take 2.5 mg by mouth once daily. Disp: Rfl:08/11/2017 at 0900atorvastatin (LIPITOR) 40 mg tablet Take 40 mg by mouth daily at bedtime.Disp: Rfl: 08/10/2017 at 2100carvedilol (COREG) 12.5 mg tablet Take 12.5 mg by mouth twice daily withmeals. Disp: Rfl: 08/11/2017 at 0900metFORMIN (GLUCOPHAGE) 1,000 mg tablet Take 1,000 mg by mouth twice dailywith meals. Disp: Rfl: Past Week at Unknown timeOmeprazole Magnesium 20 mg cpDR Take 20 mg by mouth twice daily. Disp:Rfl: 08/11/2017 at 0900nitroglycerin sublingual (NITROSTAT) 0.4 mg SL tablet Dissolve 0.4 mgunder the tongue every 5 minutes as needed. Disp: Rfl: has never takensAXagliptin (ONGLYZA) 5 mg tab Take by mouth once daily. Disp: Rfl:08/10/[address] [place] [address] medications:oxyCODONE IR 5 mg tab(s) (ROXICODONE) 5 mg ORAL q 4 H PRNiv contrast (radiology procedure) INTRAVENOUS DIRECTED PRNheparin 5,000 Units injection 5,000 Units SUBCUTANEOUS q 12 Hcarvedilol 12.5 mg tab(s) (COREG) 12.5 mg ORAL BID w MEALSnitroglycerin sublingual 0.4 mg tab(s) (NITROQUICK) 0.4 mg SUBLINGUAL q 5MIN PRNdextrose 40 % 15 g (INSTA-GLUCOSE) 15 g ORAL PRNglucagon 1 mg injection (GLUCAGEN) 1 mg INTRAMUSCULAR PRNdextrose 50% in water 25 mL syringe 12.5 g INTRAVENOUS PRNinsulin lispro injection (rapid acting) (HumaLOG) SUBCUTANEOUS q 6 Haspirin, enteric coated 162 mg tab(s) (ASPIRIN, ENTERIC COATED) 162 mgORAL DAILYHYDROmorphone 0.2 mg injection (DILAUDID) 0.2 mg INTRAVENOUS q 2 H PRNacetaminophen 650 mg tab(s) (TYLENOL) 650 mg ORAL q 6 H PRNNaCl 0.9% iv infusion 100 mL/hr INTRAVENOUS CONTINUOUSAllergies As of Date: 08/13/2017(No Known Allergies)Fully Assessed 08/13/2017COMPLETE REVIEW OF SYSTEMS:General Appearance: No apparent distress and lying in bed; mood somberSkin: No jaundice and No rashEyes: NormalHENT: Oropharnyx clear with moist mucous membranesNeck: Grossly normalLungs: Clear to auscultationCV: Regular rate and rhythmAbdomen: Soft, tender, BS presentGU: Not examinedMusculoskeletal: No edemaLymphatics: Not examinedNeuro: Alert and oriented to time, place, and personObjectivePHYSICAL EXAM:General Appearance: No apparent distress and lying in bed; mood somberSkin: No jaundice and No rashEyes: NormalHENT: Oropharnyx clear with moist mucous membranesNeck: Grossly normalLungs: Clear to auscultationCV: Regular rate and rhythmAbdomen: Soft, distended, tender throught, BS presentGU: Not examinedMusculoskeletal: No edemaLymphatics: Not examinedNeuro: Alert and oriented to time, place, and personBP 120/76 Pulse 69 Temp (Src) 98.4 (Oral) Resp 18 Ht 5' 8 (1.73m) Wt 192 lb 9.6 oz (87.4kg) SpO2 92% BMI 29.29 kg/(m2).DATA:Diagnostic tests reviewed for today's visit:All imaging and lab resultsImpression/Recommenda tions62 yoM s/p cholecystectomy with persistent pain, nausea, vomiting andelevated LFT's. Post op course included ERCP which demonstrated two fluidcollections and partially obstructing duodenal mass.Plan:-Blood and urine cultures-follow CBC/CMP-plan for ERCP with possible duodenal stent placement on 08/17 with -Pain and symptom control as per primary service-Maintain NPO-IV [employer] professional for ERCP (ordered)D/w Dr. Nava and Dr. FerrariSIGNATURE: Gissell Serrato CNP PATIENT NAME: Rocio FrischDATE: August 15, 2017 : 9:04 AM PAGER: [phone] [facility] [address] DRN PL[address] PERIT/RETROP FL BIon 08-15-[address] PERIT/RETROP FL BI * * *Final Report* * *DATE OF EXAM: Aug 15 2017 2:46PM FVC 2022 - CT DRN PLACE PERIT/RETROP FL BI / REASON: Intra-abdominal collection * * * * Physician Interpretation * * * * CT guided abscess drainage of the abdominal abscess collection without contrast performed on 08/15/2017 2:46 PM.History: Perihepatic and gastrohepatic fluid collectionTechnique: Noncontrast CT of the upper abdomen.Comparison: CT exam from 08/14/2017.CT radiation dose length product (DLP) of 344 mGy*cm.CT Dose Reduction Employed: YesRadiation Shielding Employed: N/ARESULT:CONSENT: The risks, benefits, indications, and alternatives to the procedure were explained to the patient. The patient appeared to understand and agreed to proceed. Informed consent was signed.RESULT:Procedure performed by the staff radiologist Dr. Reji Patel.Pre-procedure Sign-in: Safety Checklist Performed: Yes. The team confirmed the correct patient, correct site, site marking, correct procedure, and correct position.Timeout Time: 1430Procedure End time: 1444Sign-out: Communication performed: YesThe site of interest was marked on the skin surface. The skin was prepped and draped in usual sterile fashion. Epigastric location was markedAnesthesia: ANESTHESIA:a) Local anesthesia: 1% Buffered Lidocaineb) Anesthesia Type: Induction of moderate procedural sedation.c) Anesthesia Medications IV: 25 mcg ; Fentanyl ; 0.5 mg Versed d) Intra-service time (starts with administration of agent, ends when continuous rpha-gv-xasg time ends): 14 minutese) Patient monitoring: Continuous ECG, pulse oximetry and cardiopulmonary monitoring was performed during the entire procedure by both the physician and nurse.-I, the procedural radiologist personally supervised and directed the independent trained observer who assisted in monitoring the patient's level of consciousness and physiological status throughout the procedure.Catheter/ needle used: 5 Burkinan Yueh, 8 Burkinan pigtail.Imaging guidance with images saved into the permanent archive: CTTechnique: Using CT guidance a 5 Burkinan catheter was inserted into the abscess collection in the gastrohepatic location. Serial dilatation was performed over a wire and an 8 Burkinan pigtail catheter was inserted into the abscess collection. Approximately 110 cc of dark red serous fluid was obtained.Sample obtained: As aboveEstimated blood loss: Less than 1 ccComplications: NoneIMPRESSION: CT-guided abscess drainage of gastrohepatic fluid collection. Nearly the entire fluid collection was drained during this procedure. An 8 Burkinan pigtail catheter remains in the location of the fluid collection and was connected to an accordion drainage bag. Patient was sent back to the room with the catheter.Ergonomic Specialist: PSCB Transcribe Date/Time: Aug 15 2017 5:47PDictated by : REJI PATEL MDThis examination was interpreted and the report reviewed and electronically signed by: REJI PATEL MD on Aug 15 2017 6:07PM [id number] [facility] Comp Metabolic Panelon 08-15 Alanine aminotransferase (ALT) 205 U/L High 5-50 [facility] Comment on above: Performed By: #### P T, PTT, AMYL, CMP, LIPA, PHOS ####[place] [address]#### TRANSF ####[place] [phone] Albumin 2.5 g/dL Low 3.5-5.0 [facility] Comment on above: Performed By: #### P T, PTT, AMYL, CMP, LIPA, PHOS ####[place] [address]#### TRANSF ####[place] [phone] Alkaline phosphatase (ALP) 515 U/L High 40-150 [facility] Comment on above: Performed By: #### P T, PTT, AMYL, CMP, LIPA, PHOS ####[place] [address]#### TRANSF ####[place] [address] Anion gap 14 mmol/L Normal 9-18 [facility] Comment on above: Performed By: #### P T, PTT, AMYL, CMP, LIPA, PHOS ####[place] [address]#### TRANSF ####[place] [phone] Aspartate aminotransferase (AST) 74 U/L High 7-40 [facility] Comment on above: Performed By: #### P T, PTT, AMYL, CMP, LIPA, PHOS ####[place] [address]#### TRANSF ####[place] [address] Bilirubin (total) 1.7 mg/dL High 0.0-1.5 [facility] Comment on above: Performed By: #### P T, PTT, AMYL, CMP, LIPA, PHOS ####[place] [address]#### TRANSF ####[address] [place] [phone] Calcium 8.7 mg/dL Normal 8.5-10.5 [facility] Comment on above: Performed By: #### P T, PTT, AMYL, CMP, LIPA, PHOS ####[place] [address]#### TRANSF ####[place] [phone] Chloride 98 mmol/L Normal 98-110 [facility] Comment on above: Performed By: #### P T, PTT, AMYL, CMP, LIPA, PHOS ####[place] [address]#### TRANSF ####[place] [phone] CO2 24 mmol/L Normal 23-32 [facility] Comment on above: Performed By: #### P T, PTT, AMYL, CMP, LIPA, PHOS ####[place] [address]#### TRANSF ####[place] [phone] Creatinine 0.62 mg/dL Low 0.70-1.40 [facility] Comment on above: Performed By: #### P T, PTT, AMYL, CMP, LIPA, PHOS ####[place] [address]#### TRANSF ####[address] [place] [phone] eGFR (non-black) mL/min/{1.73_m2} Normal >60 [facility] Comment on above: Performed By: #### P T, PTT, AMYL, CMP, LIPA, PHOS ####[place] [phone]#### TRANSF ####[place] [address] [address] Av[place] [phone] Glucose mass conc 151 mg/dL High 65-100 [facility] Comment on above: Performed By: #### P T, PTT, AMYL, CMP, LIPA, PHOS ####[address]#### TRANSF ####[place] [phone] Potassium molar conc 3.5 mmol/L Normal 3.5-5.0 [facility] Comment on above: Performed By: #### P T, PTT, AMYL, CMP, LIPA, PHOS ####[place] [address]#### TRANSF ####[place] [phone] Protein 6.4 g/dL Normal 6.0-8.4 [facility] Comment on above: Performed By: #### P T, PTT, AMYL, CMP, LIPA, PHOS ####[place] [address]#### TRANSF ####[address] [place] [phone] Sodium 136 mmol/L Normal 135-146 [facility] Comment on above: Performed By: #### P T, PTT, AMYL, CMP, LIPA, PHOS ####[place] [phone]#### TRANSF ####[address] [place] [phone] Urea nitrogen 12 mg/dL Normal 10-25 [facility] Comment on above: Performed By: #### P T, PTT, AMYL, CMP, LIPA, PHOS ####[facility] [place], [place] [phone]#### TRANSF ####[facility] [address] [place], [place] [phone] HISTORY PHYSICALon HISTORY PHYSICAL HNO ID: [id number] thor: Reji Samaniegoe: RadiologyAuthor Type: PhysicianType: HANDPFiled: 08/15/2017 2:07 PMNote Text:PROCEDURAL SEDATION HISTORY AND PHYSICAL EXAMSERVICE DATE: 08/15/2017SERVICE TIME: 2:05 PMSubjectiveHPI: This is a 62 year old male who presents with fluid collectionsubxyphoid in abdomen adjacent to stomach.PAST ANESTHESIA HISTORY: No history of adverse eventPAST MEDICAL HISTORYDiagnosis Date- Bleeding ulcer 11/15/2016 required 5 blood transfusions- Diabetes mellitus (HCC) 2016- Glaucoma- Hypertension- Myocardial infarction 05/15/2011PAST SURGICAL HISTORYProcedure Laterality Date- ANGIOPLASTY HX 05/15/2011 2 stents s/p MD;[facility]- CHOLECYSTECTOMY 08/11/2017 [facility]Prior to [facility] medications as of 08/13/17 2301Medication Sig Last Dose Takingaspirin, enteric coated (ECOTRIN LOW STRENGTH) 81 mg EC tablet Take 162 mgby mouth once daily. Past Week at Unknown time Yeslisinopril 2.5 mg tablet Take 2.5 mg by mouth once daily. 08/11/2017 [id number] Yesatorvastatin (LIPITOR) 40 mg tablet Take 40 mg by mouth daily at bedtime.08/10/2017 at 2100 Yescarvedilol (COREG) 12.5 mg tablet Take 12.5 mg by mouth twice daily withmeals. 08/11/2017 at 0900 YesmetFORMIN (GLUCOPHAGE) 1,000 mg tablet Take 1,000 mg by mouth twice dailywith meals. Past Week at Unknown time YesOmeprazole Magnesium 20 mg cpDR Take 20 mg by mouth twice daily. 08/11/2017at 0900 Yesnitroglycerin sublingual (NITROSTAT) 0.4 mg SL tablet Dissolve 0.4 mgunder the tongue every 5 minutes as needed. has never taken YessAXagliptin (ONGLYZA) 5 mg tab Take by mouth once daily. 08/10/2017 at 0900YesALLERGIESNo Known AllergiesObjectivePHYSICAL EXAM: The remainder of the physical exam is noncontributory.AIRWAY: Airway Visualization of Uvula: YesMouth opening greater than 2 fingerbreadths: YesNeck Full Range of Motion: YesLUNGS: Lungs clear to auscultation, Good diaphragmatic excursionCARDIAC: Normal S1 and S2; no rubs, murmurs, or gallopsAssessment/PlanASA Class: ASA Class:: Patient with severe systemic diseaseProvisional Diagnosis/Treatment Plan:CT guided abscess drainage, moderatesedation.SEDATION GOAL: ModerateSIGNATURE: Reji Patel MD PATIENT NAME: Rocio VizcarraTE: August 15, 2017 : 2:05 PM PAGER: [phone] [facility] Magnesiumon 08-15-2017 Magnesium 2.0 mg/dL Normal 1.7-2.6 [facility] Comment on above: Performed By: #### P T, PTT, AMYL, CMP, LIPA, PHOS ####[facility] [place] [phone]#### TRANSF ####[facility] [address] [place], [place] [phone] NURSING PROGon 08-15-2017 NURSING PROG HNO ID: [id number] thor: Saima Kramer (Rn) MOUSTAPHA Richardsonervice: (none)Author Type: Registered NurseType: Nursing Progress NoteFiled: 08/15/2017 6:48 PMNote Text: Nursing Progress NotePatient Name: Rocio JacksonMRN: [id number] [address]: [address]/[id number] ____Daily Note:Pt phos level 2.2 - text page to SROC to make aware. Pt restingin bed and is alert and oriented times 3. Pt rating pain 7/10 in abdomenand generalized in whole area. Medicated w/ PRN pain medication. Lungsclear and abdomen distended and tender. Pt jaundiced. IV fluids infusingper MAR. ENcouraged use of incentive spirometer. Pt not able to take deepbreaths.1235: Sepsis alert on pt. Text page to SROC to make aware. Temp 99.5, 106pulse, 128 RR, WBC 16.33. Will cont to monitor pt.1530: Pt returned from IR and RN that gave report stated that pt was inafib on monitor down there. Pt heart rate elevated. Text page to SROC tomake aware.1715: SROC at bedside to assess patient. Pt states his pain has lessenedsince drain placed. Accordian drain draining brown/bloody fluid. Order forEKG, and NS bolus placed. Order to replace phos ordered. NG output bilecolor. Pt urine dark enrrique. Pt has productive cough. Verified w/ SROC okto administer scheduled coreg. Safety maintained and call light withinreach.1810: Pt heart rate sustaining between 120-140. Text page to gen surg tomake aware. Pt asymptomatic at this time. Will cont to monitor.1630: NS bolus ordered. Made resident aware of pt's productive cough.Safety maintained.This note was completed by: Saima Richardson RN [facility] NUTRITIONon 08-15-2017 NUTRITION HNO ID: [id number] thor: Alana Greenwood (Carlos) DunnService: Nutrition TherapyAuthor Type: Registered DietitianType: NutritionFiled: 08/15/2017 1:17 PMNote Text:NUTRITION SUPPORT TEAMTOPIC: NUTRITION SUPPORT PROGRESS NOTEPATIENT NAME: Rocio JacksonMRN: [id number] OF : 1955DATE: 08/15/2017Nutritional Status: SEVERE PROTEIN CALORIE MALNUTRITION in the context ofacute Illness or Injury based on weight loss, subcutaneous fat loss andmuscle lossConsult for Nutrient IntakeInterval History: per surgeryMrDary Jackson is a 62 year old male with PMH of CAD s/p stent x2, type 2 DMon metformin, HTN, glaucoma, PSH of cholecystectomy (08/11/2017), ERCP(08/13/17) who was transferred from OSH for management of partial duodenalobstruction. Symptoms of vomiting x 1 month with vague abdominal pain,thought to be cholecystitis, underwent lap cholecystectomy ([address] Readmitted for abdominal pain and vomiting, underwent ERCPwhich shows a ulcerated mass in junction of D1/D2, no visualization ofampulla. On exam abdomen soft, mildly distended, mild diffuse tenderness.Afebrile, HDS. ERCP in OSH shows partial obstruction of D1/D2 from annularlesion, possible adenocarcinoma.Imp: Partial duodenal obstruction, likely due to malignancyAssessment: Recommendations:Discussed with RN - no central line placed for TPNPage out to surgery and RN also has page outTPN recommendations to be made once cental line available.IF line placed 08/16Can use start up of 510 dextrose kcal , 100 ml/hr continuous, 130 gmsprotein, 540 fat kcalStandard electrolytes or based on lab valuesCalcium gluconate 10 mEqMagnesium sulfate 20 mEqSodium phosphate 30 mMolPotassium acetate 100 mEqSodium chloride 50 mEqSodium acetate 15 mEqMVI with mineral and trace elements Dosing Weight: 87 kgResting Metabolic Rate: 1661Estimated kilocalorie needs: 1616-8073 kilocalories determined by 25-28kcal/kgEstimated protein needs:113 - 130 grams determined by 1.3-1.5 g/kg DosingweightEstimated fluid needs: 2200 - 2400 milliliters based on 1 mL per kcalVitals:Temperature Max in 24 hours: Temp (24hrs), Av ?C (98.6 ?F), Min:36.6?C (97.8 ?F), Max:37.5 ?C (99.5 ?F)Current Vital Signs: BP 112/72 Pulse 106 Temp 37.5 ?C (99.5 ?F) (Oral) Resp 18 Ht 172.7 cm (5' 8 ) Wt 87.4 kg (192 lb 9.6 oz) SpO2 92% BMI 29.28 kg/s2Xuofyaj Weight: Weight: 87.4 kg (192 lb 9.6 oz)Intake AND Output:Intake/Output Summary (Last 24 hours) at 08/15/17 1257Last data filed at 08/15/17 1246 Gross per 24 hourIntake 2843 mlOutput 2465 mlNet 378 mlLaboratory Data:Recent Labs 08/14/1813NA 136 -- 133* 132*K 3.5 -- 3.8 4.2CHLOR 98 -- 96* 96*CO2 24 -- 22* 23CREAT 0.62* -- 0.61* 0.63*BUN 12 -- 9* 9*GLUC 151* -- 147* 149*P 2.2* 2.4* 2.3* 2.3*TPROT 6.4 -- 6.4 7.0ALB 2.5* -- 2.9* 3.1*MG 2.0 -- -- --CA 8.7 -- 8.5 8.9Recent Labs 100891YTHJVP 7*Accuchecks:Glucose, Point of Care (mg/dL)Date Value08/15/2017 141 (A)08/15/2017 154 (A)08/15/2017 138 (A)08/14/2017 148 (A)Alana Barber RD, LDPager: For further assistance and weekends please page the Group [phone] :3 [facility] PROGRESSon 08-15-2017 PROGRESS HNO ID: [id number] thor: Kael (Georges) ASHLEY Hernandezervice: General SurgeryAuthor Type: ResidentType: Progress NotesFiled: 08/15/2017 7:29 PMNote Text:GENERAL SURGERY PROGRESS NOTENAME: Rociomarisa JacksonMRN: [id number] 2017 7:20 PMASSESSMENT AND PLAN:Mr. Jackson is a 62 year old male with PMH of CAD s/p stent x2, type 2 DMon metformin, HTN, glaucoma, PSH of cholecystectomy (08/11/2017), ERCP(08/13/17) who was transferred from OSH for management of partial duodenalobstruction. Symptoms of vomiting x 1 month with vague abdominal pain,thought to be cholecystitis, underwent lap cholecystectomy ([address]). Readmitted for abdominal pain and vomiting, underwent ERCPwhich shows a ulcerated mass in junction of D1/D2, no visualization ofampulla. On exam abdomen soft, mildly distended, mild diffuse tenderness.Afebrile, HDS. ERCP in OSH shows partial obstruction of D1/D2 from annularlesion, possible adenocarcinoma.Imp: Partial duodenal obstruction, likely due to malignancyPt was hypotensive and tachycardic during the day. EKG revealed A-fib.Received 2x500 NSB, responded to bolus.IR drained 110cc dark serous fluid on 08/15- Continue pain control regimen- FEN/GI: NPO diet; mIVF- Abx: Cipro- Prophylaxis: DVT prophylaxis, IS, OOB, ambulate- Telemetry- PICC line placement- Nutrition consult for TPN- Dispo: ARLINE HERNANDEZ MDGeneral SurgeryPager: [phone]*On weekends or nights (after 1800) please contact the surgery on callpager.*SUBJECTIVE: No acute issues overnight and during the day. Restingcomfortably in bed.OBJECTIVE:BP 109/58 Pulse 78 Temp 36.3 ?C (97.4 ?F) (Oral) Resp 18 Ht 172.7cm (5' 8 ) Wt 87.4 kg (192 lb 9.6 oz) SpO2 94% BMI 29.28 kg/z0UWJBCCL: alert, NADLUNGS: breathing comfortablyCARDIAC: irregularABDOMEN: mildly TTP in upper abd, mildly distended, softEXTREMITIES: warm and well perfusedDRAINS/LINES: bilious drainage from JPDate 08/14/17 1500 - 08/15/17 0659 08/15/17 0700 - 08/16/17 0659Shift 7077-3747 3627-8670 24 Hour Total 6955-0263 0223-0015 9159-3464 24Hour TotalINTAKE PO 60 60 30 30 PO 60 60 30 30 IV 2018 2018 535 053 0169 NS 0.9% 2018 2018 985 176 9891 Irrigants 20 40 30 30 Irrigant/Flush Amount In (GI Feed/Drain 08/14/17 0109 Nasogastric RightNaris 18 Fr) 20 40 30 30 Shift Total 2098 2118 744 665 1409OUTPUT Urine 575 1125 425 425 Void (ml) 575 1125 425 425 Tubes 106 460 4606 330 445 775 Drain/Tube Output (Drain/Tube [facility] RightLower Quadrant Abdomen) 260 30 370 140 70 210 Drain/Tube Output (Drain/Tube 08/15/17 1530 Assessment Right UpperAbdomen) 275 275 Output (GI Feed/Drain 08/14/17108 Nasogastric Right Naris 18 Fr) 356139 6207 190 100 290 # of BMs Number of BMs 0 x 0 x 0 x 0 x Shift Total 660 1265 2555 330 870 1200Weight (kg) 87.4 87.4 87.4 87.4 87.4 87.4 87.4LABORATORY AND IMAGING:CBCRecent Labs 08/14/1799WBC 16.33* 11.53*HB 11.1* 10.7*HCT 33.4* 31.7*PLT 328 285Metabolic PanelRecent Labs 08/14/1813NA 136 -- 133* -- 132*K 3.5 -- 3.8 -- 4.2CHLOR 98 -- 96* -- 96*CO2 24 -- 22* -- 23CREAT 0.62* -- 0.61* -- 0.63*BUN 12 -- 9* -- 9*GLUC 151* -- 147* -- 149*TPROT 6.4 -- 6.4 -- 7.0ALB 2.5* -- 2.9* -- 3.1*PREALB -- -- -- 7* --MG 2.0 -- -- -- --P 2.2* 2.4* 2.3* -- 2.3*CA 8.7 -- 8.5 -- 8.9ALKPHOS 515* -- 727* -- 832*TBILI 1.7* -- 2.3* -- 2.7*AST 74* -- 285* -- 395*ALT 205* -- 370* -- 418* [facility] PROGRESS HNO ID: [id number] thor: Khadar DuffyService: General SurgeryAuthor Type: PhysicianType: Progress NotesFiled: 08/15/2017 5:53 PMNote Text:Surgery Att:Pt seen at 1100 this am.AF last 24 hours. Mild tachycardia. BP stable.Mild tenderness remains in upper abdomen; bilious drainage from ROMINA.WBC increased to 16K.Symptomatic from bilomas/bile leak.Plan: Perc drainage of bilomas today, which should control bile leak.ERCP/stent would hopefully resolve bile leak if able to be completed.Continue atbx and follow clinical course.Khadar Duffy MDFebruary 2017 5:53 PM(late entry) [facility] PT EDon 08-15-2017 PT ED HNO ID: [id number] thor: Dhara (Rn) MOUSTAPHA Riveroervice: RadiologyAuthor Type: Registered NurseType: Patient EducationFiled: 08/15/2017 3:13 PMNote Text:AMBULATORY PATIENT EDUCATIONTOPIC: Survival Skills: SURVIVAL SKILLS: Abcess DrainREADINESS TO LEARNCOGNITIVE ABILITY: Alert and orientedMOTIVATION TO LEARN: InterestedFAMILY SUPPORT: None - Unavailable/disinterestedINS TRUCTION PROVIDED TO: PatientPATIENT LEARNS BEST BY: Written Instruction - Hand-outsVerbal InstructionFACTORS AFFECTING LEARNING: NonePHYSICAL LIMITATIONS AFFECTING LEARNING: Fatigue and Limited MobilityLEARNING RESPONSEDIAGNOSIS: AbcessMETHOD OF INSTRUCTION: Written instruction - handoutsVerbal instructionPATIENT / FAMILY RESPONSE: Verbalizes understanding of: AEMX-WATFLHBMVEQENTHAAQUXU-V orrect actions to take to reduce post procedurecomplicationsPRE-OK OCEDURE INSTRUCTIONS-Correct action to take to follow pre-procedureinstructionsFOL LOW-UP PLAN: Complete - No need for follow-upSUPPLEMENTAL MATERIAL: Title of written material: Abcess drain andSedation informationREFERRAL (RECOMMENDATION): NoneElectronically Signed By: Dhara Rivero RN In Department: [address] PTT,Anticoag Therapyon 08-15 aPTT 39.8 s High 23.0-32.4 [facility] Comment on above: Result Comment: Unfr actionated Heparin Therapeutic Ranges:Standard Heparin Nomogram: 53 to 78 seconds (anti-Xa level of 0.3 to 0.7 U/ml)Low Dose/ACS Nomogram: 49 to 67 seconds (anti-Xa level of 0.2 to 0.5 U/ml)Stroke Treatment Nomogram: 49 to 67 seconds (anti-Xa level of 0.2 to 0.5 U/ml)Note: The APTT therapeutic range has been determined for the current lot of laboratory APTT reagent in use throughout the [facility]. Performed By: #### P T, PTT, AMYL, CMP, LIPA, PHOS ####[place] [phone]#### TRANSF ####[place] [address] [address] [place] [phone] Phosphoruson 08-15-2017 Phosphate 2.2 mg/dL Low 2.5-4.5 [facility] Comment on above: Performed By: #### P T, PTT, AMYL, CMP, LIPA, PHOS ####[place] [phone]#### TRANSF ####[place] [address] [address] [place] [phone] Protimeon 08-15-2017 INR Coag RelTime (Bld) 2.0 {INR} High 0.9-1.3 [facility] Comment on above: Result Comment: Tayler min K Antagonist (VKA) Therapeutic Range: INR 2 to 3 (Target INR of 2.5)Note: For patients treated with VKA drugs, such as warfarin, the [employer] [employer] 2012 Guideline recommends a therapeutic INR range of 2 to 3 (target INR of 2.5). This recommendation includes high-risk patients with antiphospholipid syndrome with previous arterial or venous thromboembolism, current-generation mechanical or bioprosthetic aortic heart valve replacement.Note: Patients with mechanical aortic valve replacement and additional risk factors for thromboembolic events (atrial fibrillation, previous thromboembolism, LV dysfunction, hypercoagulable conditions) or an older generation mechanical AVR (i.e., ball in-Cage) or any mechanical MVR should have a INR therapeutic range of 2.5 to 3.5 (target INR of 3).Keegan CHOW, et al. Chest 2012, 141:7S-47SFelice RA, et al. [facility] 2017, 70: 252-289 Performed By: #### P T, PTT, AMYL, CMP, LIPA, PHOS ####[place] [id number] [place] [phone]#### TRANSF ####[place] [address] [place] [phone] PT Sec 19.4 sec High 9.7-13.0 [facility] Comment on above: Performed By: #### P T, PTT, AMYL, CMP, LIPA, PHOS ####[place] [id number] [place] [phone]#### TRANSF ####[place] [address] [place], [place] [phone] Urine Cultureon 08-15-2017 Urine culture, bacteria Sp. Request/Comment: - Specimen received in preservativeCulture Result - 10,000 - <50,000 CFU/ml Enterobacter cloacae --> ABNORMAL ALERTORGANISM: Enterobacter cloacaeMETHOD: Minimum inhibitory concentration(Vitek)Antibiot ic Interp JOLENE StatusAmpicillin RESISTANT FGentamicin SUSCEPTIBLE <=1 FTrimeth sulfameth SUSCEPTIBLE <=20 FCefazolin RESISTANT >=64 FCiprofloxacin SUSCEPTIBLE <=0.25 FNitrofurantoin INTERMEDIATE 64 FCefepime SUSCEPTIBLE <=1 FPiperacillin/Tazobac SUSCEPTIBLE <=4 FAmpicillin Sulbact RESISTANT FCeftriaxone SUSCEPTIBLE <=1 FEnterobacter, Citrobacter, and Serratia may develop resistance during prolonged therapy with third generation cephalosporins as a result of derepression of AmpC beta lactamase.Meropenem SUSCEPTIBLE <=0.25 FErtapenem SUSCEPTIBLE <=0.5 F Critically abnormal [facility] Comment on above: Performed By: #### P T, PTT, AMYL, CMP, LIPA, PHOS ####[facility] [place] [phone]#### TRANSF ####[facility] [place], [place] [phone] Wound Culture/Stainon 2017 Wound Culture/Stain Sp. Request/Comment: - Specimen received in sterile container.Smear Result - Rare Gram positive cocci in pairs and chains --> ABNORMAL ALERT No Polymorphonuclear LeukocytesCulture Result - Moderate Streptococcus mutans group --> ABNORMAL ALERTORGANISM: Streptococcus mutans groupMETHOD: Minimum inhibitory concentration (VIZION)Antibiotic Interp JOLENE StatusPenicillin G SUSCEPTIBLE <=0.03 FVancomycin SUSCEPTIBLE <=0.5 FCeftriaxone SUSCEPTIBLE <=0.12 FClindamycin SUSCEPTIBLE <=0.12 F Critically abnormal [facility] Comment on above: Performed By: #### W CUL ####[place] [address] [place], [place] [phone] ALLIED HEALTHon 08-14-2017 ALLIED HEALTH HNO ID: [id number] thor: Albert Sutherland: (none)Author Type: (none)Type: Allied HealthFiled: 08/14/2017 7:17 PMNote Text: Radiology Service Progress NotePATIENT NAME: Rocio Boudreaux: [id number] OF SERVICE: August 14, 2017TIME: 7:16 PMPATIENT IDENTITY VERIFICATION COMPLETED USING TWO (2) METHODS: Patientconfirmed name verbally and ID band matches..PATIENT GENDER DATA: MalePATIENT RELEVANT IMPLANT DATA REVIEWED: Not ApplicableCONTRAST INDUCED NEPHROPATHY RISK FACTORS: Patient age > 60 yearsCREATININE:CreatinineDa te Value Ref Range Ykwmsh0408/14/2017 0.61 (L) 0.70 - 1.40 mg/dL Final08/14/2017 0.63 (L) 0.70 - 1.40 mg/dL Final eGFR-All Other RacesDate Value Ref Range Znagym0508/14/2017 >60 >60 . Final eGFR- AmericanDate Value Ref Range Cmyaav2508/14/2017 >60 >60 Final P.O.C.T. RESULTS: POC done: Yes, See Lab Tab August 14, 2017RADIOLOGIST NOTIFIED?: LacyERGIES: Reviewed and unchangedCONTRAST ALLERGY: NO.PERIPHERAL IV ACCESS: Inpatient: see LDA documentationRADIOLOGY DEPARTMENT: CT; Exam(s) Completed: Abdomen/Pelvis , Chest andPancreasSIGNED BY: Albert Guerreromusalane regional medical center 2017 7:16 PM Normal [facility] ALLIED HEALTH HNO ID: [id number] thor: Denise Graham RTService: (none)Author Type: (none)Type: Allied HealthFiled: 08/14/2017 1:32 AMNote Text: Radiology Service Progress NotePATIENT NAME: Rocio JacksonN: [id number] OF SERVICE: August 14, 2017TIME: 1:32 AMPATIENT IDENTITY VERIFICATION COMPLETED USING TWO (2) METHODS: Patientconfirmed name verbally and ID band matches..PATIENT GENDER DATA: MalePATIENT RELEVANT IMPLANT DATA REVIEWED: Not ApplicableRADIOLOGY DEPARTMENT: General X-ray: Exam(s) Completed: Chest X-RayAbdomen X-Ray AbdomenPERIPHERAL IV DATA: Not applicableSIGNED BY: Denise Graham [facility]32 AM Normal [facility] APTTon 08-14-2017 aPTT 31.6 s Normal 23.0-32.4 [facility] Comment on above: Result Comment: Unfr actionated Heparin Therapeutic Ranges:Standard Heparin Nomogram: 53 to 78 seconds (anti-Xa level of 0.3 to 0.7 U/ml)Low Dose/ACS Nomogram: 49 to 67 seconds (anti-Xa level of 0.2 to 0.5 U/ml)Stroke Treatment Nomogram: 49 to 67 seconds (anti-Xa level of 0.2 to 0.5 U/ml)Note: The APTT therapeutic range has been determined for the current lot of laboratory APTT reagent in use throughout the [facility]. Performed By: #### P T, PTT, AMYL, CMP, LIPA, PHOS ####[facility] [place], [place] [phone]#### TRANSF ####[facility] [place], [place] [phone] aPTT 30.2 s Normal 23.0-32.4 [facility] Comment on above: Result Comment: Unfr actionated Heparin Therapeutic Ranges:Standard Heparin Nomogram: 53 to 78 seconds (anti-Xa level of 0.3 to 0.7 U/ml)Low Dose/ACS Nomogram: 49 to 67 seconds (anti-Xa level of 0.2 to 0.5 U/ml)Stroke Treatment Nomogram: 49 to 67 seconds (anti-Xa level of 0.2 to 0.5 U/ml)Note: The APTT therapeutic range has been determined for the current lot of laboratory APTT reagent in use throughout the [facility]. Performed By: #### P T, PTT, AMYL, CMP, LIPA, PHOS ####[place] [phone]#### TRANSF ####[place] [address] [place], [place] [phone] Amylaseon 08-14-2017 Amylase 59 U/L Normal 0-137 [facility] Comment on above: Performed By: #### P T, PTT, AMYL, CMP, LIPA, PHOS ####[place] [phone]#### TRANSF ####[place] [address] [place], [place] [phone] Bilirubin, Fluidon 8 Bilirubin (direct) 6.1 mg/dL Critically abnormal See Comment [facility] Comment on above: Result Comment: Sero us fluids: Bilirubin measurement in peritoneal or drainage fluids is considered a useful test for detecting the presence of bile leaking through a defect in the biliary ducts. For postoperative hepatectomy patients, a ratio of drain fluid total bilirubin to a concurrent serum total bilirubin >=3.0 indicates bile leakage according to the International Study Group of Liver Surgery (ISGLS).Reference: 1. CLSI. Analysis of Body Fluids in Clinical Chemistry Approved Guideline. CLSI document C49A. SAIMA Contreras: Clinical Laboratory Standards [place]: 2007.2. Nani Y, Javierata T, Andra Y et al. The Determination of Bile Leakage in Complex Hepatectomy Based on the Guidelines of the International Study Group of Liver Surgery. World J Surg. 2014 38:168-176.This test was developed and its performance characteristics determined by [facility]'s [facility] Pathology and Laboratory Medicine [place] ([facility]).It has not been cleared or approved by the FDA. [facility] is regulated under CLIA as qualified to perform high-complexity testing.This test is used for clinical purposes. It should not be regarded as investigational or for research. Performed By: #### P T, PTT, AMYL, CMP, LIPA, PHOS ####[place] [address]#### TRANSF ####[place] [phone] Fluid Other Normal [facility] Comment on above: Result Comment: ROMINA HERNÁNDEZ Performed By: #### P T, PTT, AMYL, CMP, LIPA, PHOS ####[place] [address]#### TRANSF ####[place] [phone] CBCon 08-14-2017 Erythrocyte distribution width Auto Ratio (RBC) 15.2 % High 11.5-15.0 [facility] Comment on above: Performed By: #### P T, PTT, AMYL, CMP, LIPA, PHOS ####[place] [address]#### TRANSF ####[address] [place] [phone] Erythrocytes (RBC) 3.70 10*6/uL Low 4.20-6.00 [facility] Comment on above: Performed By: #### P T, PTT, AMYL, CMP, LIPA, PHOS ####[place] [address]#### TRANSF ####[address] [place] [phone] Hematocrit (HCT) 31.7 % Low 39.0-51.0 [facility] Comment on above: Performed By: #### P T, PTT, AMYL, CMP, LIPA, PHOS ####[place] [address]#### TRANSF ####[place] [address] Hemoglobin mass conc (Bld) 10.7 g/dL Low 13.0-17.0 [facility] Comment on above: Performed By: #### P T, PTT, AMYL, CMP, LIPA, PHOS ####[place] [address]#### TRANSF ####[place] [address] MCH 28.9 pG Normal 26.0-34.0 [facility] Comment on above: Performed By: #### P T, PTT, AMYL, CMP, LIPA, PHOS ####[place] [address]#### TRANSF ####[place] [address] MCHC mass conc (RBC) 33.8 g/dL Normal 30.5-36.0 [facility] Comment on above: Performed By: #### P T, PTT, AMYL, CMP, LIPA, PHOS ####[place] [address]#### TRANSF ####[place] [address] MCV 85.7 fL Normal 80.0-100.0 [facility] Comment on above: Performed By: #### P T, PTT, AMYL, CMP, LIPA, PHOS ####[place] [address]#### TRANSF ####[address], [place] [phone] Platelet mean volume (PMV) 12.1 fL Normal 9.0-12.7 [facility] Comment on above: Performed By: #### P T, PTT, AMYL, CMP, LIPA, PHOS ####[address]#### TRANSF ####[place] [phone] Platelets 285 10*3/uL Normal 150-400 [facility] Comment on above: Performed By: #### P T, PTT, AMYL, CMP, LIPA, PHOS ####[place] [phone]#### TRANSF ####[place] [phone] WBC (Leukocytes) 11.53 10*3/uL High 3.70-11.00 [facility] Comment on above: Performed By: #### P T, PTT, AMYL, CMP, LIPA, PHOS ####[place] [phone]#### TRANSF ####[address] [phone] CT CHEST W IVCONon 8 CT CHEST W IVCON * * *Final Report* * *DATE OF EXAM: Aug 14 2017 7:15PM [facility] 0539 - CT CHEST W IVCON / REASON: Duodenal mass * * * * Physician Interpretation * * * * EXAMINATION: CHEST CT WITH CONTRASTIndication: Duodenal mass, metastatic workup.Technique: Spiral CT acquisition of the chest from the thoracic inlet to the upper abdomen following IV contrast.M: [id number]: 150 mL Omnipaque 300 IVCT Dose-Length Product: 1358 mGy*cmCT Dose Reduction Employed: Automated exposure control (AEC)Comparison: Type of study and date/timeRESULT:Limitations: Due to breathing motion.Lines, tubes, and devices: There is a nasogastric tube extending into the upper abdomen. Lung parenchyma and pleura: There are bilateral pleural effusions with associated atelectasis versus infiltrates. There are no suspicious lung nodules. The central airways are patent.Thoracic inlet, heart, and mediastinum: There is a 9 mm precarinal lymph node image 2:73. There is no mediastinal or hilar lymphadenopathy by size criteria. The thoracic aorta and main pulmonary artery are normal in caliber. The cardiac chambers are normal in size. No coronary artery atherosclerotic calcifications are noted, although the study is not optimized for coronary assessment. No pericardial effusion or thickening.Bones and soft tissues: There is multilevel spondylosis. There are no aggressive osseous lesions. Chest wall is unremarkable.Upper abdomen: Please refer to separate dictation for the CT abdomen and pelvis.IMPRESSION: Bilateral effusions with associated atelectasis versus infiltrates.Ergonomic Specialist : NII Transcribe Date/Time: Aug 14 2017 8:43PDictated by : AURORA ROMERO MDThis examination was interpreted and the report reviewed and electronically signed by: AURORA ROMERO MD on Aug 14 2017 8:46PM [id number] Normal [facility] CT PANCREAS/PELVIS W IVCONon 08-14-2017 CT PANCREAS/PELVIS W IVCON * * *Final Report* * *DATE OF EXAM: Aug 14 2017 7:15PM [facility] 0553 - CT PANCREAS/PELVIS W IVCON / REASON: Duodenal mass * * * * Physician Interpretation * * * * CT ABDOMEN AND PELVIS WITH IV CONTRASTCLINICAL INDICATION: Duodenal massCOMPARISON: None.TECHNIQUE: A CT of the abdomen was performed using pancreas protocol, including both late arterial phase and portal phase imaging. The portal venous phase was continued through the pelvis. Multiplanar reformats were obtainedCONTRAST:IV: 150 ml of Omnipaque 300CT Radiation dose: Integrated Dose-length product (DLP) for this visit = 1358 mGy*cm.CT Dose Reduction Employed: Automated exposure control (AEC)RESULT:Liver: There is a subcentimeter hypodensity measuring 1.1 cm image 5:29 favor representing a small cyst..Biliary: There is dilatation of the intra and extrahepatic biliary tree. There is complex fluid in the gallbladder fossa.Spleen: No mass. No splenomegaly.Pancreas: The pancreas is atrophic. There is no focal mass or ductal dilatation.Adrenals: No mass.Kidneys: There are symmetric bilateral nephrograms. There are no intrarenal calcifications or hydronephrosis.GI tract: There is wall thickening involving the distal descending duodenum. There is a nasogastric tube in the stomach.Lymph nodes: There are normal size lymph nodes. As an example there is a 1 cm portacaval lymph node image 5:64. There are scattered normal size mesenteric lymph nodes.Mesentery/Peritoneum: There is ascites in the abdomen and pelvis. There is also free fluid in the region of the lesser sac. There is a right-sided catheter that crosses the midline and the tip terminates in the left lateral abdomen. There are a few extraluminal air bubbles in the right upper quadrant on image 4:54, 4:55 and image 5:55. This may not be unusual in a patient with a peritoneal catheter.Retroperitoneum: No mass.Vasculature: The celiac axis and SMA are patent. The portal vein and branches, splenic vein, SMV, and hepatic veins are patent. The aorta is not aneurysmal.Pelvis: There is ascites. The urinary bladder demonstrates a small amount of air in the nondependent portion presumably representing recent instrumentation. Correlate clinically. There is bladder wall thickening anteriorly.Bones/Soft Tissues: There are no aggressive osseous lesions. There is a right-sided peritoneal catheter with adjacent subcutaneous air.Lower thorax: Please refer to separate dictation for the CT chest.IMPRESSION: 1. Wall thickening involving the descending duodenum in this patient with a known duodenal mass. There is dilatation of the intra and extrahepatic biliary tree, fluid in the lesser sac and the gallbladder fossa. Transcriptio nist: PSCB Transcribe Date/Time: Aug 14 2017 8:47PDictated by : AURORA ROMERO MDThis examination was interpreted and the report reviewed and electronically signed by: AURORA ROMERO MD on Aug 15 2017 5:11PM [id number] Normal [facility] Comp Metabolic Panelon 08-14 Alanine aminotransferase (ALT) 370 U/L High 5-50 [facility] Comment on above: Performed By: #### P T, PTT, AMYL, CMP, LIPA, PHOS ####[place] [address]#### TRANSF ####[phone] Albumin 2.9 g/dL Low 3.5-5.0 [facility] Comment on above: Performed By: #### P T, PTT, AMYL, CMP, LIPA, PHOS ####[place] [address]#### TRANSF ####[place] [phone] Alkaline phosphatase (ALP) 727 U/L High 40-150 [facility] Comment on above: Performed By: #### P T, PTT, AMYL, CMP, LIPA, PHOS ####[place] [address]#### TRANSF ####[place] [phone] Anion gap 15 mmol/L Normal 9-18 [facility] Comment on above: Performed By: #### P T, PTT, AMYL, CMP, LIPA, PHOS ####[place] [address]#### TRANSF ####[place] [phone] Aspartate aminotransferase (AST) 285 U/L High 7-40 [facility] Comment on above: Performed By: #### P T, PTT, AMYL, CMP, LIPA, PHOS ####[place] [address]#### TRANSF ####[place] [phone] Bilirubin (total) 2.3 mg/dL High 0.0-1.5 [facility] Comment on above: Performed By: #### P T, PTT, AMYL, CMP, LIPA, PHOS ####[place] [address]#### TRANSF ####[place] [phone] Calcium 8.5 mg/dL Normal 8.5-10.5 [facility] Comment on above: Performed By: #### P T, PTT, AMYL, CMP, LIPA, PHOS ####[place] [address]#### TRANSF ####[place] [phone] Chloride 96 mmol/L Low 98-110 [facility] Comment on above: Performed By: #### P T, PTT, AMYL, CMP, LIPA, PHOS ####[place] [address]#### TRANSF ####[place] [phone] CO2 22 mmol/L Low 23-32 [facility] Comment on above: Performed By: #### P T, PTT, AMYL, CMP, LIPA, PHOS ####[place] [address]#### TRANSF ####[place] [phone] Creatinine 0.61 mg/dL Low 0.70-1.40 [facility] Comment on above: Performed By: #### P T, PTT, AMYL, CMP, LIPA, PHOS ####[place] [address]#### TRANSF ####[place] [phone] eGFR (non-black) mL/min/{1.73_m2} Normal >60 [facility] Comment on above: Performed By: #### P T, PTT, AMYL, CMP, LIPA, PHOS ####[address]#### TRANSF ####[place] [address] [address] [phone] Glucose mass conc 147 mg/dL High 65-100 [facility] Comment on above: Performed By: #### P T, PTT, AMYL, CMP, LIPA, PHOS ####[place] [address]#### TRANSF ####[place] [phone] Potassium molar conc 3.8 mmol/L Normal 3.5-5.0 [facility] Comment on above: Performed By: #### P T, PTT, AMYL, CMP, LIPA, PHOS ####[place] [address]#### TRANSF ####[place] [phone] Protein 6.4 g/dL Normal 6.0-8.4 [facility] Comment on above: Performed By: #### P T, PTT, AMYL, CMP, LIPA, PHOS ####[place] [address]#### TRANSF ####[place] [phone] Sodium 133 mmol/L Low 135-146 [facility] Comment on above: Performed By: #### P T, PTT, AMYL, CMP, LIPA, PHOS ####[place] [phone]#### TRANSF ####[place] [address] [address] [phone] Urea nitrogen 9 mg/dL Low 10-25 [facility] Comment on above: Performed By: #### P T, PTT, AMYL, CMP, LIPA, PHOS ####[place] [address]#### TRANSF ####[place] [phone] Alanine aminotransferase (ALT) 418 U/L High 5-50 [facility] Comment on above: Performed By: #### P T, PTT, AMYL, CMP, LIPA, PHOS ####[place] [address]#### TRANSF ####[place] [phone] Albumin 3.1 g/dL Low 3.5-5.0 [facility] Comment on above: Performed By: #### P T, PTT, AMYL, CMP, LIPA, PHOS ####[place] [address]#### TRANSF ####[place] [phone] Alkaline phosphatase (ALP) 832 U/L High 40-150 [facility] Comment on above: Performed By: #### P T, PTT, AMYL, CMP, LIPA, PHOS ####[place] [address]#### TRANSF ####[place] [phone] Anion gap 13 mmol/L Normal 9-18 [facility] Comment on above: Performed By: #### P T, PTT, AMYL, CMP, LIPA, PHOS ####[place] [address]#### TRANSF ####[place] [phone] Aspartate aminotransferase (AST) 395 U/L High 7-40 [facility] Comment on above: Performed By: #### P T, PTT, AMYL, CMP, LIPA, PHOS ####[place] [address]#### TRANSF ####[place] [phone] Bilirubin (total) 2.7 mg/dL High 0.0-1.5 [facility] Comment on above: Performed By: #### P T, PTT, AMYL, CMP, LIPA, PHOS ####[place] [address]#### TRANSF ####[address] [place] [phone] Calcium 8.9 mg/dL Normal 8.5-10.5 [facility] Comment on above: Performed By: #### P T, PTT, AMYL, CMP, LIPA, PHOS ####[place] [address]#### TRANSF ####[place] [phone] Chloride 96 mmol/L Low 98-110 [facility] Comment on above: Performed By: #### P T, PTT, AMYL, CMP, LIPA, PHOS ####[place] [address]#### TRANSF ####[address] [place] [phone] CO2 23 mmol/L Normal 23-32 [facility] Comment on above: Performed By: #### P T, PTT, AMYL, CMP, LIPA, PHOS ####[place] [address]#### TRANSF ####[address] [place] [phone] Creatinine 0.63 mg/dL Low 0.70-1.40 [facility] Comment on above: Performed By: #### P T, PTT, AMYL, CMP, LIPA, PHOS ####[address]#### TRANSF ####[place] [phone] eGFR (non-black) mL/min/{1.73_m2} Normal >60 [facility] Comment on above: Performed By: #### P T, PTT, AMYL, CMP, LIPA, PHOS ####[address]#### TRANSF ####[place] [phone] Glucose mass conc 149 mg/dL High 65-100 [facility] Comment on above: Performed By: #### P T, PTT, AMYL, CMP, LIPA, PHOS ####[place] [address]#### TRANSF ####[place] [phone] Potassium molar conc 4.2 mmol/L Normal 3.5-5.0 [facility] Comment on above: Performed By: #### P T, PTT, AMYL, CMP, LIPA, PHOS ####[address]#### TRANSF ####[place] [phone] Protein 7.0 g/dL Normal 6.0-8.4 [facility] Comment on above: Performed By: #### P T, PTT, AMYL, CMP, LIPA, PHOS ####[place] [address]#### TRANSF ####[place] [phone] Sodium 132 mmol/L Low 135-146 [facility] Comment on above: Performed By: #### P T, PTT, AMYL, CMP, LIPA, PHOS ####[place] [id number] [place], [place] [phone]#### TRANSF ####[facility] [place], [place] [phone] Urea nitrogen 9 mg/dL Low 10-25 [facility] Comment on above: Performed By: #### P T, PTT, AMYL, CMP, LIPA, PHOS ####[place] [id number] [place], [place] [phone]#### TRANSF ####[place] [address] [place], [place] [phone] HISTORY PHYSICALon 8 HISTORY PHYSICAL HNO ID: [id number] thor: Michael Cedillo) AugustinService: General SurgeryAuthor Type: PhysicianType: HANDPFiled: 08/14/2017 11:20 PMNote Text:SURGICAL SERVICES INITIAL HANDPSERVICE DATE: 08/13/2017SERVICE TIME: 11:52 PMPRIMARY CARE PHYSICIAN: No primary care provider on file.SubjectiveHISTORY OF PRESENT ILLNESS: Mr. Jackson is a 62 year old male with PMH ofCAD s/p stent x2, type 2 DM on metformin, HTN, glaucoma, PSH ofcholecystectomy ) who was transferred from [facility].Patient reports symptoms of abdominal pain and multiple episodes ofvomiting since 1 month ago. Abdominal pain was diffuse aching. He wasunable to tolerate PO intake and would vomit after meals. His symptomswere thought to be related to cholecystitis, and he underwent laparoscopiccholecystectomy 2 days ago. He was discharged home after the surgeryhowever returned to the hospital yesterday with abdominal pain andmultiple episodes of vomiting.He underwent ERCP in the OSH with findings of suspicios mass in duodenumand obscured ampulla. Biopsies were taken from the mass and he wastransferred to [facility] for [facility] management.Of note he has an episode of bleeding duodenal ulcer for which he receivedmultiple blood transfusion.PAST MEDICAL HISTORYDiagnosis Date- Bleeding ulcer 11/15/2016 required 5 blood transfusions- Diabetes mellitus (HCC) 2017- Glaucoma- Hypertension- Myocardial infarction 05/15/2011PAST SURGICAL HISTORYProcedure Laterality Date- ANGIOPLASTY HX 05/15/2011 2 stents s/p MD;[facility]- CHOLECYSTECTOMY 08/11/2017 [facility]No family history on file.Social HistorySubstance Use Topics- Smoking status: Former Smoker Types: Cigarettes Quit date: 2010- Smokeless tobacco: Never Used- Alcohol use 1.5 oz/week 1 Cans of Beer (12oz) per week Comment: occasional beerPrescriptions Prior to Admission:aspirin, enteric coated (ECOTRIN LOW STRENGTH) 81 mg EC tablet Take 162 mgby mouth once daily. Disp: Rfl: Past Week at Unknown timelisinopril 2.5 mg tablet Take 2.5 mg by mouth once daily. Disp: Rfl:08/11/2017 at 0900atorvastatin (LIPITOR) 40 mg tablet Take 40 mg by mouth daily at bedtime.Disp: Rfl: 08/10/2017 at 2100carvedilol (COREG) 12.5 mg tablet Take 12.5 mg by mouth twice daily withmeals. Disp: Rfl: 08/11/2017 at 0900metFORMIN (GLUCOPHAGE) 1,000 mg tablet Take 1,000 mg by mouth twice dailywith meals. Disp: Rfl: Past Week at Unknown timeOmeprazole Magnesium 20 mg cpDR Take 20 mg by mouth twice daily. Disp:Rfl: 08/11/2017 at 0900nitroglycerin sublingual (NITROSTAT) 0.4 mg SL tablet Dissolve 0.4 mgunder the tongue every 5 minutes as needed. Disp: Rfl: has never takensAXagliptin (ONGLYZA) 5 mg tab Take by mouth once daily. Disp: Rfl:08/10/2017 at 0900[facility] medications:[START ON 08/14/2017] pneumococcal vaccine 23 VALENT 0.5 mL injection(PNEUMOVAX) 0.5 mL INTRAMUSCULAR ONCE (IMMUNIZATION)heparin 5,000 Units injection 5,000 Units SUBCUTANEOUS q 12 H[START ON 08/14/2017] carvedilol 12.5 mg tab(s) (COREG) 12.5 mg ORAL BID wMEALSnitroglycerin sublingual 0.4 mg tab(s) (NITROQUICK) 0.4 mg SUBLINGUAL q 5MIN PRNdextrose 40 % 15 g (INSTA-GLUCOSE) 15 g ORAL PRNglucagon 1 mg injection (GLUCAGEN) 1 mg INTRAMUSCULAR PRNdextrose 50% in water 25 mL syringe 12.5 g INTRAVENOUS PRNinsulin lispro injection (rapid acting) (HumaLOG) SUBCUTANEOUS q 6 Haspirin, enteric coated 162 mg tab(s) (ASPIRIN, ENTERIC COATED) 162 mgORAL DAILYHYDROmorphone 0.2 mg injection (DILAUDID) 0.2 mg INTRAVENOUS q 2 H PRNacetaminophen 650 mg tab(s) (TYLENOL) 650 mg ORAL q 6 H PRN[START ON 08/14/2017] NaCl 0.9% iv infusion 100 mL/hr INTRAVENOUSCONTINUOUSALLERGI ESNo Known AllergiesCOMPLETE REVIEW OF SYSTEMS:PAIN ASSESSMENT: Mild diffuse abdominal painGENERAL: No weight loss, malaise or feversHEENT: Negative for frequent or significant headaches, No changes inhearing or vision, no nose bleeds or other nasal problemsNECK: Negative for lumps, goiter, pain and significant neck swellingRESPIRATORY: Non labored breathing on RACARDIOVASCULAR: History of MD with stents on 162 aspirinGI: Vomiting and abdominal painGU: No history of dysuria, frequency or incontinence, No difficultyurinating, nocturia > 1 time per night or hematuriaMUSCULOSKELETAL: Negative for joint pain or swelling, back pain or musclepainSKIN: Negative for lesions, rash, and itchingPSYCH: Negative for sleep disturbance, mood disorder and recentpsychosocial stressorsHEMATOLOGY/LYMPHOLO GY: Negative for prolonged bleeding, bruising easily orswollen nodesENDOCRINE: Negative for cold or heat intolerance, polyuria, polydipsia andgoiterNEURO: No history of headaches, syncope, paralysis, seizures or tremorsObjectivePHYSICAL EXAM:BP 159/86 Pulse 89 Temp (Src) 100 (Oral) Resp 18 Ht 5' 8 (1.73m) Wt 192 lb 9.6 oz (87.4kg) SpO2 95% BMI 29.29 kg/(m2).Physical Exam PerformedGENERAL: Alert, no distress, cooperativeHEAD/SINUSES: No significant findingsEYES: No jaundiceLUNGS: Non labored breathing on RACARDIAC: Regular rate and rhythmABDOMEN: Abdomen soft, mildly distended, mildly tender to palpation. Nomass or organomegaly, non peritoniticEXTREMITIES: Extremities normal, no deformities, edema, clubbing or skindiscoloration. Good capillary refill.NEURO: Grossly normal cognition, motor function, and cranial nervesIII-XIIThe remainder of the physical exam is noncontributory.DATA:Diagnos tic tests reviewed for today's visit:Most recent labs and imaging results.CBC, Coags, BMP, Mg, PhosRecent Labs WBC 11.53*HB 10.7*HCT 31.7*PLT 285INR 1.5*APTT 30.2NA 132*K 4.2CHLOR 96*CO2 23BUN 9*CREAT 0.63*GLUC 149*CA 8.9P 2.3*Liver Function, Amylase, AND LipaseRecent Labs TPROT 7.0ALB 3.1*ALT 418*AST 395*ALKPHOS 832*TBILI 2.7*AMYLASE 59LIPASE 58ERCP(OSH records)The distal esophagus is normal. The stomach is distended and contain alarge amount of residual food material. The pyloric channel is open. Inthe junction of first and second portion of duodenum was seen to be anannular lesion with central ulceration which appear to be a malignantinfiltrative process, most likely adenocarcinoma. The ampullary complex isunable to be located because of the change in anatomy.Multiple biopsies were taken from the ulcerated mass. No bleeding or othersignificant complications were noted.Impression/Recommendat AllenDary Jackson is a 62 year old male with PMH of CAD s/p stent x2, type 2 DMon metformin, HTN, glaucoma, PSH of cholecystectomy (08/11/2017), ERCP(08/13/17) who was transferred from OSH for management of partial duodenalobstruction. Symptoms of vomiting x 1 month with vague abdominal pain,thought to be cholecystitis, underwent lap cholecystectomy ([address]). Readmitted for abdominal pain and vomiting, underwent ERCPwhich shows a ulcerated mass in junction of D1/D2, no visualization ofampulla. On exam abdomen soft, mildly distended, mild diffuse tenderness.Afebrile, HDS. ERCP in OSH shows partial obstruction of D1/D2 from annularlesion, possible adenocarcinoma.Imp: Partial duodenal obstruction, likely due to malignancyPlans:- Admit under Dr Jolley- NGT for decompression to DELVIS PATRICIA to confirm placement- ROMINA drain to negative bulb suction- Labs: CBC, CMP, Lipase, Amylase, Coags, Transferrin, Prealbumin, TANDS- Repeat CT scan with IV contrast in AM pending creatinine- Diet: NPO, IVF- GI: Zofran for nausea- Resp: BPH, IS- CVS/Heme: Heme stable- Renal: Strict I/Os- Neuro: Cognitive intact, alert oriented x 3- ID: No indication for Abx- Activity: OOB, ambulate as able- Pain control: Continue current regimen - IV dilaudid PO roxicodone,tylenol- Pending results: Labs, CT scan in AM- Prophylaxis: DVT prophylaxis, SCDs- Dispo: RNF- Plans discussed with senior resident and will be discussed with staffSIGNATURE: Serena Trent MD PATIENT NAME: Rocio VizcarraTE: August 13, 2017 : 11:52 PM PAGER/CONTACT #: [phone] NOTEI have independently seen and examined the patient today. I haveindependently reviewed all the imaging and the labs. I agree with keycomponents of the resident's note above. Care plan and decision making hasbeen discussed.Patient with obstructing duodenal mass [facility] abdominal painUnderwent lap richelle recentlySymptoms have been worse since surgeryAbd is soft and non peritonitic. RUQ tenderness noted. Drain with bileI have reviewed the CT.2 large collections and Duodenal mass. No liver or pulmonary metastasesTumor markersIR drain for abdominal fluid collection; these are likely bilomas givenCBD obstruction at the time of cholecystectomyEGD/ERCP for biliary stentNeeds TPNToms MD Froilan, MPH, FACSGeneral/Trauma/HPB SurgeryPager: [phone] Cell: [phone] 2017 [facility] Lipaseon 08-14-2017 Lipase 43 U/L Normal 12-70 [facility] Comment on above: Performed By: #### P T, PTT, AMYL, CMP, LIPA, PHOS ####[facility] [place], [place] [phone]#### TRANSF ####[place] [address] [place], [place] [phone] Lipase 58 U/L [facility] Comment on above: Performed By: #### P T, PTT, AMYL, CMP, LIPA, PHOS ####[place] [phone]#### TRANSF ####[address] [phone] NURSING PROGon 08-14-2017 NURSING PROG HNO ID: [id number] thor: Kiley Wong RNService: (none)Author Type: Registered NurseType: Nursing Progress NoteFiled: 08/14/2017 6:27 PMNote Text: Nursing Progress NotePatient Name: Rocio JacksonMRN: [id number] Location: [place] [address]/[id number] ____Daily Note:1800-Patient reporting a significant increase in pain. Ratingabdominal pain 10/10 and stating he did not feel this bad earlier.Medicated with dilaudid at this time. Upon assessment a slight increase inabdominal distention was noted as well as a change in the fluid color fromthe ROMINA drain. Pt was putting out a yellow serous liquid, now putting out adark tea colored fluid. Call placed to surgical services manager to notify, hewill be up to see the patient. Repositioned for comfort, no new orders atthis time.1809-Resident is in to see patient, orders to continue to monitor. Callplaced to CT to determine when patient will be taken down. Per plc technician thepatient is on the transport list and CT will be completed soon.is note was completed by: Kiley Wong RN [facility] NURSING PROG HNO ID: [id number] thor: Jacqueline (Rn) Jeremy, RNService: (none)Author Type: Registered NurseType: Nursing Progress NoteFiled: 08/13/2017 10:36 PMNote Text: Nursing Progress NotePatient Name: oRcio Boudreaux: [id number] Location: [place] [address]/[id number] ____Transfer Note:Patient transferred into room/unit PK336 at 2145. Actions taken:Dressingaround pt ROMINA drain changed AND ROMINA emptied. Will follow up with orders andcontinue to monitor.This note was completed by: Jacqueline Luna RN [facility] NUTRITIONon 08-14-2017 NUTRITION HNO ID: [id number] thor: Alise Segura) BarsaService: Nutrition TherapyAuthor Type: Registered DietitianType: NutritionFiled: 08/14/2017 2:51 PMNote Text:NUTRITION THERAPY INITIAL ASSESSMENTSERVICE DATE: 08/14/2017SERVICE TIME: 2:31 PMRECOMMENDED MALNUTRITION DIAGNOSIS: SEVERE PROTEIN-CALORIE MALNUTRITIONIn the context of Acute Illness or Injury based on:Unintentional Weight Loss: >5% over 1 monthInsufficient Energy Intake: less than or equal to 50% for greater than orequal to 5 daysSubcutaneous Fat Loss: Moderate LossMuscle Loss Moderate LossNUTRITION CARE PLAN:Problem, Etiology and Signs/Symptoms:Suboptimal oral intake related to altered GI function as evidenced bypoor po intake, wt loss, N/VIntervention:NPONGIV Fluids - 100 ml hr NSBolus Na PhosIf enteral or Parenteral nutrition required - please consult for nutritionMonitor and Evaluation:Goal: Meet >75% of estimated needsMonitor fluid/electrolyte balanceMonitor labs, I/Os, vital signs, weightDischarge Nutrition Recommendations:To be determinedPer HPI: 62 year old male with PMH of CAD s/p stent x2, type 2 DM onmetformin, HTN, glaucoma, PSH of cholecystectomy (08/11/2017), ERCP(08/13/17) who was transferred from OSH for management of partial duodenalobstruction. Symptoms of vomiting x 1 month with vague abdominal pain,thought to be cholecystitis, underwent lap cholecystectomy ([address]). Readmitted for abdominal pain and vomiting, underwent ERCPwhich shows a ulcerated mass in junction of D1/D2, no visualization ofampulla. On exam abdomen soft, mildly distended, mild diffuse tenderness.Afebrile, HDS. ERCP in OSH shows partial obstruction of D1/D2 from annularlesion, possible adenocarcinoma.Imp: Partial duodenal obstruction, likely due to malignancyPresent Diet Order: NPOEnteral Access: NoNutritional Intake Prior to Admission: <50% estimated entergy need overthe past 1 month(s)Pt with poor po intake x 1 month from gallbladder issuesPt was having N/V and abdominal painWt loss noted from 205-192#GI symptoms: nausea, vomiting, anorexia and abdominal painAbdominal Exam: abdomen is distended and bowel sounds are normalIs the patient having any pain that is interfering with oral/enteralintake? Yes LOCATION: abdominal painANTHROPOMETRICSHeight: 172.7 cm (5' 8 )Admission Weight: 87.4 kg (192 lb 9.6 oz)Current Weight: 87.4 kg (192 lb 9.6 oz)Body mass index is 29.28 kg/(m2). overweightWeight has decreased by 13# over 2 weeks representing 6.3 % weight change.Pt states wt usually 205# 2 weeks agoLast Wt08/13/17 : 87.4 kg (192 lb 9.6 oz)Dosing Weight: 87 kgResting Metabolic Rate: 1661Estimated kilocalorie needs: 3405-9658 kilocalories determined by 25-28kcal/kgEstimated protein needs:113 - 130 grams determined by 1.3-1.5 g/kg DosingweightEstimated fluid needs: 2200 - 2400 milliliters based on 1 mL per kcalNUTRITION FOCUSED PHYSICAL EXAM:Subcutaneous Fat LossOrbital ModerateTriceps ModerateMid-axillary at the iliac crest Unable to determine at this timeMuscle Loss Locations:Temporalis ModeratePectoralis ModerateDeltoids ModerateInterosseous ModerateLatissimus dorsi, trapezius Unable to determine at this timeQuadriceps Unable to determine at this timeGastrocnemius Unable to determine at this timePotential micronutrient deficiency revealed in: No deficiency identifiedEdema: NoAscites: NoAssessment of Functional Status: Unable to determine at this timeTemperature Max in 24 hours: Temp (24hrs), Av.4 ?C (99.3 ?F), Min:37?C (98.6 ?F), Max:37.8 ?C (100 ?F) BP 149/87 Pulse 90 Temp 37.4 ?C (99.3 ?F) (Oral) Resp 20 Ht 172.7cm (5' 8 ) Wt 87.4 kg (192 lb 9.6 oz) SpO2 93% BMI 29.28 kg/q6Fesgiw Labs 08/14/1803GLUC 147* -- 149*BUN 9* -- 9*CREAT 0.61* -- 0.63*NA 133* -- 132*K 3.8 -- 4.2CHLOR 96* -- 96*CO2 22* -- 23ALB 2.9* -- 3.1*PREALB -- 7* --TRANSF -- -- 218HB -- -- 10.7*HCT -- -- 31.7*WBC -- -- 11.53*P 2.3* -- 2.3*Potential Signs of Inflammation: leukocytosis, hyperglycemia,hypoalbuminemi a, low prealbumin and imaging studiesALLERGIESNo Known AllergiesCurrent Facility-Administered Medications:oxyCODONE IR 5 mg tab(s) (ROXICODONE) 5 mg ORAL q 4 H PRNiv contrast (radiology procedure) INTRAVENOUS DIRECTED PRNsodium phosphate 15 mmol in D5W 250 mL 15 mmol INTRAVENOUS ONCEheparin 5,000 Units injection 5,000 Units SUBCUTANEOUS q 12 Hcarvedilol 12.5 mg tab(s) (COREG) 12.5 mg ORAL BID w MEALSnitroglycerin sublingual 0.4 mg tab(s) (NITROQUICK) 0.4 mg SUBLINGUAL q 5MIN PRNdextrose 40 % 15 g (INSTA-GLUCOSE) 15 g ORAL PRNOrglucagon 1 mg injection (GLUCAGEN) 1 mg INTRAMUSCULAR PRNOrdextrose 50% in water 25 mL syringe 12.5 g INTRAVENOUS PRNinsulin lispro injection (rapid acting) (HumaLOG) SUBCUTANEOUS q 6 Haspirin, enteric coated 162 mg tab(s) (ASPIRIN, ENTERIC COATED) 162 mgORAL DAILYHYDROmorphone 0.2 mg injection (DILAUDID) 0.2 mg INTRAVENOUS q 2 H PRNacetaminophen 650 mg tab(s) (TYLENOL) 650 mg ORAL q 6 H PRNNaCl 0.9% iv infusion 100 mL/hr INTRAVENOUS CONTINUOUSIntake/Output 08/13/17 0700 - 08/14/17 0659 08/14/17 0700 - 08/15/17 0659 Intake (ml) 427 20 Output (ml) 1190 630 Net (ml) -763 -610Surgical Incision 08/14/17 0103 Abdomen - Laparoscopy Sites (Active)Dressing Status None: Open to Air 08/14/2017 8:00 AMIncision Closures Topical Skin Adhesive 08/14/2017 8:00 AMDrainage Description None 08/14/2017 8:00 AMDrainage Amount None 08/14/2017 8:00 AMHematoma No 08/14/2017 8:00 AMNumber of days:0MNT Billing Type: Initial Assess/15 min 5 unitsSIGNATURE: Alise Lopez RD, LD PATIENT NAME: Rocio VizcarraTE: August 14, 2017 : 2:31 PM PAGER: For further assistance and weekends please page theGroup Pager -[phone] [facility] Phosphoruson 08-14-2017 Phosphate 2.4 mg/dL Low 2.5-4.5 [facility] Comment on above: Performed By: #### P T, PTT, AMYL, CMP, LIPA, PHOS ####[address] [phone]#### TRANSF ####[facility] [place], [place] [phone] Phosphate 2.3 mg/dL Low 2.5-4.5 [facility] Comment on above: Performed By: #### P T, PTT, AMYL, CMP, LIPA, PHOS ####[address] [phone]#### TRANSF ####[place] [phone] Phosphate 2.3 mg/dL Low 2.5-4.5 [facility] Comment on above: Performed By: #### P T, PTT, AMYL, CMP, LIPA, PHOS ####[place] [phone]#### TRANSF ####[place] [phone] Prealbuminon 08-14-2017 Prealbumin 7 mg/dL Low 17-36 [facility] Comment on above: Performed By: #### P T, PTT, AMYL, CMP, LIPA, PHOS ####[place] [phone]#### TRANSF ####[place] [phone] Protimeon 08-14-2017 INR Coag RelTime (Bld) 1.5 {INR} High 0.9-1.3 [facility] Comment on above: Result Comment: Tayler min K Antagonist (VKA) Therapeutic Range: INR 2 to 3 (Target INR of 2.5)Note: For patients treated with VKA drugs, such as warfarin, the [employer] [employer] 2012 Guideline recommends a therapeutic INR range of 2 to 3 (target INR of 2.5). This recommendation includes high-risk patients with antiphospholipid syndrome with previous arterial or venous thromboembolism, current-generation mechanical or bioprosthetic aortic heart valve replacement.Note: Patients with mechanical aortic valve replacement and additional risk factors for thromboembolic events (atrial fibrillation, previous thromboembolism, LV dysfunction, hypercoagulable conditions) or an older generation mechanical AVR (i.e., ball in-Cage) or any mechanical MVR should have a INR therapeutic range of 2.5 to 3.5 (target INR of 3).Keegan GH, et al. Chest 2012, 141:7S-47SFelice RA, et al. JAC 2017, 70: 252-289 Performed By: #### P T, PTT, AMYL, CMP, LIPA, PHOS ####[phone]#### TRANSF ####[place] [phone] PT Sec 14.9 sec High 9.7-13.0 [facility] Comment on above: Performed By: #### P T, PTT, AMYL, CMP, LIPA, PHOS ####[place] [phone]#### TRANSF ####[place] [phone] INR Coag RelTime (Bld) 1.5 {INR} High 0.9-1.3 [facility] Comment on above: Result Comment: Tayler min K Antagonist (VKA) Therapeutic Range: INR 2 to 3 (Target INR of 2.5)Note: For patients treated with VKA drugs, such as warfarin, the [employer] [employer] 2012 Guideline recommends a therapeutic INR range of 2 to 3 (target INR of 2.5). This recommendation includes high-risk patients with antiphospholipid syndrome with previous arterial or venous thromboembolism, current-generation mechanical or bioprosthetic aortic heart valve replacement.Note: Patients with mechanical aortic valve replacement and additional risk factors for thromboembolic events (atrial fibrillation, previous thromboembolism, LV dysfunction, hypercoagulable conditions) or an older generation mechanical AVR (i.e., ball in-Cage) or any mechanical MVR should have a INR therapeutic range of 2.5 to 3.5 (target INR of 3).Keegan GH, et al. Chest 2012, 141:7S-47SFelice RA, et al. JACC 2017, 70: 252-289 Performed By: #### P T, PTT, AMYL, CMP, LIPA, PHOS ####[place] [phone]#### TRANSF ####[place] [phone] PT Sec 14.7 sec High 9.7-13.0 [facility] Comment on above: Performed By: #### P T, PTT, AMYL, CMP, LIPA, PHOS ####[place] [address]#### TRANSF ####[place] [phone] Transferrinon 08-14-2017 Transferrin 218 mg/dL Normal 200-360 [facility] Comment on above: Performed By: #### P T, PTT, AMYL, CMP, LIPA, PHOS ####[place] [address]#### TRANSF ####[place] [phone] Type and Screenon 08-14-2017 ABO/RH(D) Positive [facility] Comment on above: Performed By: #### P T, PTT, AMYL, CMP, LIPA, PHOS ####[place] [address]#### TRANSF ####[place] [phone] Antibody Screen Negative [facility] Comment on above: Performed By: #### P T, PTT, AMYL, CMP, LIPA, PHOS ####[place] [address]#### TRANSF ####[place] [phone] XR ABDOMEN 1V SUPINEon 08-14 XR ABDOMEN 1V SUPINE * * *Final Report* * *DATE OF EXAM: Aug 14 2017 1:27AM FVX [id number] - XR ABDOMEN 1V SUPINE / REASON: Encounter for nasogastric (NG) tube placement * * * * Physician Interpretation * * * * HISTORY: Encounter for nasogastric (NG) tube placementTECHNIQUE: XR ABDOMEN 1V SUPINECOMPARISON: NoneRESULT:Tip of the nasogastric tube extends to the left upper quadrant, overlying the the gastric body. Air and stool stool noted within the transverse and left hemicolon. Right hemiabdomen is excluded from view.IMPRESSION:NG TUBE EXTENDS TO THE STOMACH.Ergonomic Specialist: NII Transcribe Date/Time: Aug 14 2017 7:37ADictated by : Elisa MOSOCSO examination was interpreted and the report reviewed and electronically signed by: SUSAN CORNEJO MD on Aug 14 2017 7:38AM [id number] [facility] XR CHEST 1V FRONTAL PORTon 0 08-14-2017 XR CHEST 1V FRONTAL PORT * * *Final Report* * *DATE OF EXAM: Aug 14 2017 1:28AM FVX [id number] - XR CHEST 1V FRONTAL PORT / REASON: Preop testing * * * * Physician Interpretation * * * * EXAMINATION: CHEST RADIOGRAPH (PORTABLE SINGLE VIEW AP)Exam Date/Time: 08/14/2017 1:28 AMIndication: Preop testingM: [id number]_[id number]: NoneRESULT:Lines, tubes, and devices: NG tube tip extends to left upper quadrant.Lungs and pleura: Hypoventilated lung fraire. Bibasilar airspace opacities likely reflecting atelectasis. Trace bilateral pleural fluid suspected. No pneumothorax.Cardiomediastin al silhouette: Partially obscured.Other:IMPRESSION:Lo w lung volumes with bibasilar atelectasis.Ergonomic Specialist : NII Transcribe Date/Time: Aug 14 2017 7:38ADictated by : SUSAN CORNEJO MDThimilly examination was interpreted and the report reviewed and electronically signed by: SUSAN CORNEJO MD on Aug 14 2017 7:40AM [id number] [facility] HOSPon 08-13-2017 HOSP Patient:Jason Jackson RN: Height:5' 8 (1.727 m)Weight:192 lb (87.091 kg)Outpatient Medications as of 08/19/17:aspirin, enteric coated (ECOTRIN LOW STRENGTH) 81 mg EC tabletlisinopril 2.5 mg tabletatorvastatin (LIPITOR) 40 mg tabletcarvedilol (COREG) 12.5 mg tabletmetFORMIN (GLUCOPHAGE) 1,000 mg tabletOmeprazole Magnesium 20 mg cpDRnitroglycerin sublingual (NITROSTAT) 0.4 mg SL tabletsAXagliptin (ONGLYZA) 5 mg tabAdmission/Clinic Administered Medications as of 08/19/17:0.9% NaCl 2-10 mLpotassium phosphate 30 mmol in NaCl 0.9% 250 mLinsulin lispro injection (rapid acting) (HumaLOG)dextrose 5% in LR infusion (D5-LR)heparin 5,000 Units injectionphenol 1 [place] (CHLORASEPTIC)metoprolol tartrate (short acting) 25 mg tab(s) (LOPRESSOR)0.9% NaCl 10 mL0.9% NaCl 20 mLacetaminophen 650 mg tab(s) (TYLENOL)oxyCODONE IR 5 mg tab(s) (ROXICODONE)iv contrast (radiology procedure)nitroglycerin sublingual 0.4 mg tab(s) (NITROQUICK)dextrose 40 % 15 g (INSTA-GLUCOSE)glucagon 1 mg injection (GLUCAGEN)dextrose 50% in water 25 mL syringeaspirin, enteric coated 162 mg tab(s) (ASPIRIN, ENTERIC COATED)HYDROmorphone 0.2 mg injection (DILAUDID)Problem List:Duodenal obstruction [K31.5]Severe protein-calorie malnutrition (HCC) [E43]Allergies:No Known AllergiesDate Verified:08/19/17Lab ValuesLab Value Units Date High LowPOTA* 3.4 mmol/L 08/19/2017 5.0 3.5HEMA* 27.7 % 08/19/2017 51.0 39.0Progress Notes ([address]):Jacqueline Luna, RN, RN 08/13/2017 10:36 PM Signed Nursing Progress NotePatient Name: Rocio BrianDary: [id number] Location: [address]36/[id number] ____Transfer Note:Patient transferred into room/unit PK336 at 2145. Actions taken:Dressingaround pt ROMINA drain changed AND ROMINA emptied. Will follow up with orders and continueto monitor.This note was completed by: Clint Oconnor MD 08/14/2017 11:20 PM AddendumSURGICAL SERVICES INITIAL HANDPSERVICE DATE: 08/13/2017SERVICE TIME: 11:52 PMPRIMARY CARE PHYSICIAN: No primary care provider on file.SubjectiveHISTORY OF PRESENT ILLNESS: Mr. Jackson is a 62 year old male with PMH of CAD s/pstent x2, type 2 DM on metformin, HTN, glaucoma, PSH of xiuwgxwltbaoxox79/13/2018) who was transferred from [facility].Patient reports symptoms of abdominal pain and multiple episodes of vomitingsince 1 month ago. Abdominal pain was diffuse aching. He was unable to toleratePO intake and would vomit after meals. His symptoms were thought to be relatedto cholecystitis, and he underwent laparoscopic cholecystectomy 2 days ago. Hewas discharged home after the surgery however returned to the hospital yesterdaywith abdominal pain and multiple episodes of vomiting.He underwent ERCP in the OSH with findings of suspicios mass in duodenum andobscured ampulla. Biopsies were taken from the mass and he was transferred [facility] for further management.Of note he has an episode of bleeding duodenal ulcer for which he receivedmultiple blood transfusion.PAST MEDICAL HISTORYDiagnosis Date- Bleeding ulcer 11/15/2016 required 5 blood transfusions- Diabetes mellitus (HCC) 2016- Glaucoma- Hypertension- Myocardial infarction 05/15/2011PAST SURGICAL HISTORYProcedure Laterality Date- ANGIOPLASTY HX 05/15/2011 2 stents s/p MD;[facility]- CHOLECYSTECTOMY 08/11/2017 [facility] [place]No family history on file.Social HistorySubstance Use Topics- Smoking status: Former Smoker Types: Cigarettes Quit date: 2010- Smokeless tobacco: Never Used- Alcohol use 1.5 oz/week 1 Cans of Beer (12oz) per week Comment: occasional beerPrescriptions Prior to Admission:aspirin, enteric coated (ECOTRIN LOW STRENGTH) 81 mg EC tablet Take 162 mg bymouth once daily. Disp: Rfl: Past Week at Unknown timelisinopril 2.5 mg tablet Take 2.5 mg by mouth once daily. Disp: Rfl: 08/11/2017at 0900atorvastatin (LIPITOR) 40 mg tablet Take 40 mg by mouth daily at bedtime. Disp:Rfl: 08/10/2017 at 2100carvedilol (COREG) 12.5 mg tablet Take 12.5 mg by mouth twice daily with meals.Disp: Rfl: 08/11/2017 at 0900metFORMIN (GLUCOPHAGE) 1,000 mg tablet Take 1,000 mg by mouth twice daily withmeals. Disp: Rfl: Past Week at Unknown timeOmeprazole Magnesium 20 mg cpDR Take 20 mg by mouth twice daily. Disp: Rfl:08/11/2017 at 0900nitroglycerin sublingual (NITROSTAT) 0.4 mg SL tablet Dissolve 0.4 mg under thetongue every 5 minutes as needed. Disp: Rfl: has never takensAXagliptin (ONGLYZA) 5 mg tab Take by mouth once daily. Disp: Rfl: 08/10/2017at 0900[facility]START ON 08/14/2017] pneumococcal vaccine 23 VALENT 0.5 mL injection (PNEUMOVAX)0.5 mL INTRAMUSCULAR ONCE (IMMUNIZATION)heparin 5,000 Units injection 5,000 Units SUBCUTANEOUS q 12 H[START ON 08/14/2017] carvedilol 12.5 mg tab(s) (COREG) 12.5 mg ORAL BID w MEALSnitroglycerin sublingual 0.4 mg tab(s) (NITROQUICK) 0.4 mg SUBLINGUAL q 5 MINPRNdextrose 40 % 15 g (INSTA-GLUCOSE) 15 g ORAL PRNglucagon 1 mg injection (GLUCAGEN) 1 mg INTRAMUSCULAR PRNdextrose 50% in water 25 mL syringe 12.5 g INTRAVENOUS PRNinsulin lispro injection (rapid acting) (HumaLOG) SUBCUTANEOUS q 6 Haspirin, enteric coated 162 mg tab(s) (ASPIRIN, ENTERIC COATED) 162 mg ORALDAILYHYDROmorphone 0.2 mg injection (DILAUDID) 0.2 mg INTRAVENOUS q 2 H PRNacetaminophen 650 mg tab(s) (TYLENOL) 650 mg ORAL q 6 H PRN[START ON 08/14/2017] NaCl 0.9% iv infusion 100 mL/hr INTRAVENOUS CONTINUOUSALLERGIESNo Known AllergiesCOMPLETE REVIEW OF SYSTEMS:PAIN ASSESSMENT: Mild diffuse abdominal painGENERAL: No weight loss, malaise or feversHEENT: Negative for frequent or significant headaches, No changes in hearing orvision, no nose bleeds or other nasal problemsNECK: Negative for lumps, goiter, pain and significant neck swellingRESPIRATORY: Non labored breathing on RACARDIOVASCULAR: History of MD with stents on 162 aspirinGI: Vomiting and abdominal painGU: No history of dysuria, frequency or incontinence, No difficulty urinating,nocturia > 1 time per night or hematuriaMUSCULOSKELETAL: Negative for joint pain or swelling, back pain or muscle painSKIN: Negative for lesions, rash, and itchingPSYCH: Negative for sleep disturbance, mood disorder and recent psychosocialstressorsHEMATOL OGY/LYMPHOLOGY: Negative for prolonged bleeding, bruising easily orswollen nodesENDOCRINE: Negative for cold or heat intolerance, polyuria, polydipsia andgoiterNEURO: No history of headaches, syncope, paralysis, seizures or tremorsObjectivePHYSICAL EXAM:BP 159/86 Pulse 89 Temp (Src) 100 (Oral) Resp 18 Ht 5' 8 (1.73m) Wt192 lb 9.6 oz (87.4kg) SpO2 95% BMI 29.29 kg/(m2).Physical Exam PerformedGENERAL: Alert, no distress, cooperativeHEAD/SINUSES: No significant findingsEYES: No jaundiceLUNGS: Non labored breathing on RACARDIAC: Regular rate and rhythmABDOMEN: Abdomen soft, mildly distended, mildly tender to palpation. No mass ororganomegaly, non peritoniticEXTREMITIES: Extremities normal, no deformities, edema, clubbing or skindiscoloration. Good capillary refill.NEURO: Grossly normal cognition, motor function, and cranial nerves III-XIIThe remainder of the physical exam is noncontributory.DATA:Diagnos tic tests reviewed for today's visit:Most recent labs and imaging results.CBC, Coags, BMP, Mg, PhosRecent Labs WBC 11.53*HB 10.7*HCT 31.7*PLT 285INR 1.5*APTT 30.2NA 132*K 4.2CHLOR 96*CO2 23BUN 9*CREAT 0.63*GLUC 149*CA 8.9P 2.3*Liver Function, Amylase, AND LipaseRecent Labs TPROT 7.0ALB 3.1*ALT 418*AST 395*ALKPHOS 832*TBILI 2.7*AMYLASE 59LIPASE 58ERCP(OSH records)The distal esophagus is normal. The stomach is distended and contain a largeamount of residual food material. The pyloric channel is open. In the junctionof first and second portion of duodenum was seen to be an annular lesion withcentral ulceration which appear to be a malignant infiltrative process, mostlikely adenocarcinoma. The ampullary complex is unable to be located because ofthe change in anatomy.Multiple biopsies were taken from the ulcerated mass. No bleeding or othersignificant complications were noted.Impression/Recommendat ionsMr. Jackson is a 62 year old male with PMH of CAD s/p stent x2, type 2 DM onmetformin, HTN, glaucoma, PSH of cholecystectomy (08/11/2017), ERCP (08/13/17) whowas transferred from OSH for management of partial duodenal obstruction.Symptoms of vomiting x 1 month with vague abdominal pain, thought to becholecystitis, underwent lap cholecystectomy (1 ROM[address] drain left in place).Readmitted for abdominal pain and vomiting, underwent ERCP which shows aulcerated mass in junction of D1/D2, no visualization of ampulla. On examabdomen soft, mildly distended, mild diffuse tenderness. Afebrile, HDS. ERCP inOSH shows partial obstruction of D1/D2 from annular lesion, possibleadenocarcinoma.Imp: Partial duodenal obstruction, likely due to malignancyPlans:- Admit under Dr Jolley- NGT for decompression to LIWS, KUB to confirm placement- ROMINA drain to negative bulb suction- Labs: CBC, CMP, Lipase, Amylase, Coags, Transferrin, Prealbumin, TANDS- Repeat CT scan with IV contrast in AM pending creatinine- Diet: NPO, IVF- GI: Zofran for nausea- Resp: BPH, IS- CVS/Heme: Heme stable- Renal: Strict I/Os- Neuro: Cognitive intact, alert oriented x 3- ID: No indication for Abx- Activity: OOB, ambulate as able- Pain control: Continue current regimen - IV dilaudid PO roxicodone, tylenol- Pending results: Labs, CT scan in AM- Prophylaxis: DVT prophylaxis, SCDs- Dispo: RNF- Plans discussed with senior resident and will be discussed with staffSIGNATURE: Serena Trent MD PATIENT NAME: Rocio VizcarraTE: August 13, 2017 : 11:52 PM PAGER/CONTACT #: [phone] NOTEI have independently seen and examined the patient today. I have independentlyreviewed all the imaging and the labs. I agree with figueroa components of theresident's note above. Care plan and decision making has been discussed.[facility] with [facility]ing [facility] abdominal painUnderwent lap richelle recentlySymptoms have been worse since surgeryAbd is soft and non peritonitic. RUQ tenderness noted. Drain with bileI have reviewed the CT.2 large collections and Duodenal mass. No liver or pulmonary metastasesTumor markersIR drain for abdominal fluid collection; these are likely bilomas given CBDobstruction at the time of cholecystectomyEGD/ERCP for biliary stentNeeds TPNToms MD Froilan, MPH, FACSGeneral/Trauma/HPB SurgeryPager: [phone] Cell: [phone] 2017Previous VersionDenise Graham RT 08/14/2017 1:32 AM Signed Radiology Service Progress NotePATIENT NAME: Rocio JacksonMRN: [id number] OF SERVICE: August 14, 2017TIME: 1:32 AMPATIENT IDENTITY VERIFICATION COMPLETED USING TWO (2) METHODS: Patientconfirmed name verbally and ID band matches..PATIENT GENDER DATA: MalePATIENT RELEVANT IMPLANT DATA REVIEWED: Not ApplicableRADIOLOGY DEPARTMENT: General X-ray: Exam(s) Completed: Chest X-RayAbdomen X-Ray AbdomenPERIPHERAL IV DATA: Not applicableSIGNED BY: Denise Graham RTFebruary 2017 1:[address], LD 08/14/2017 2:51 PM SignedNUTRITION THERAPY INITIAL ASSESSMENTSERVICE DATE: 08/14/2017SERVICE TIME: 2:31 PMRECOMMENDED MALNUTRITION DIAGNOSIS: SEVERE PROTEIN-CALORIE MALNUTRITIONIn the context of Acute Illness or Injury based on:Unintentional Weight Loss: >5% over 1 monthInsufficient Energy Intake: less than or equal to 50% for greater than or equalto 5 daysSubcutaneous Fat Loss: Moderate LossMuscle Loss Moderate LossNUTRITION CARE PLAN:Problem, Etiology and Signs/Symptoms:Suboptimal oral intake related to altered GI function as evidenced by poor pointake, wt loss, N/VIntervention:NPONGIV Fluids - 100 ml hr NSBolus Na PhosIf enteral or Parenteral nutrition required - please consult for nutritionMonitor and Evaluation:Goal: Meet >75% of estimated needsMonitor fluid/electrolyte balanceMonitor labs, I/Os, vital signs, weightDischarge Nutrition Recommendations:To be determinedPer HPI: 62 year old male with PMH of CAD s/p stent x2, type 2 DM on metformin,HTN, glaucoma, PSH of cholecystectomy (08/11/2017), ERCP (08/13/17) who wastransferred from OSH for management of partial duodenal obstruction. Symptoms ofvomiting x 1 month with vague abdominal pain, thought to be cholecystitis,underwent lap cholecystectomy (1 [address] drain [address] in place). Readmitted forabdominal pain and vomiting, underwent ERCP which shows a ulcerated mass injunction of D1/D2, no visualization of ampulla. On exam abdomen soft, mildlydistended, mild diffuse tenderness. Afebrile, HDS. ERCP in OSH shows partialobstruction of D1/D2 from annular lesion, possible adenocarcinoma.Imp: Partial duodenal obstruction, likely due to malignancyPresent Diet Order: NPOEnteral Access: NoNutritional Intake Prior to Admission: <50% estimated entergy need over the past1 month(s)Pt with poor po intake x 1 month from gallbladder issuesPt was having N/V and abdominal painWt loss noted from 205-192#GI symptoms: nausea, vomiting, anorexia and abdominal painAbdominal Exam: abdomen is distended and bowel sounds are normalIs the patient having any pain that is interfering with oral/enteral intake? YesLOCATION: abdominal painANTHROPOMETRICSHeight: 172.7 cm (5' 8 )Admission Weight: 87.4 kg (192 lb 9.6 oz)Current Weight: 87.4 kg (192 lb 9.6 oz)Body mass index is 29.28 kg/(m2). overweightWeight has decreased by 13# over 2 weeks representing 6.3 % weight change.Pt states wt usually 205# 2 weeks agoLast Wt08/13/17 : 87.4 kg (192 lb 9.6 oz)Dosing Weight: 87 kgResting Metabolic Rate: 1661Estimated kilocalorie needs: 3559-5584 kilocalories determined by 25-28 kcal/kgEstimated protein needs:113 - 130 grams determined by 1.3-1.5 g/kg DosingweightEstimated fluid needs: 2200 - 2400 milliliters based on 1 mL per kcalNUTRITION FOCUSED PHYSICAL EXAM:Subcutaneous Fat LossOrbital ModerateTriceps ModerateMid-axillary at the iliac crest Unable to determine at this timeMuscle Loss Locations:Temporalis ModeratePectoralis ModerateDeltoids ModerateInterosseous ModerateLatissimus dorsi, trapezius Unable to determine at this timeQuadriceps Unable to determine at this timeGastrocnemius Unable to determine at this timePotential micronutrient deficiency revealed in: No deficiency identifiedEdema: NoAscites: NoAssessment of Functional Status: Unable to determine at this timeTemperature Max in 24 hours: Temp (24hrs), Av.4 ?C (99.3 ?F), Min:37 ?C(98.6 ?F), Max:37.8 ?C (100 ?F) BP 149/87 Pulse 90 Temp 37.4 ?C (99.3 ?F) (Oral) Resp 20 Ht 172.7 cm(5' 8 ) Wt 87.4 kg (192 lb 9.6 oz) SpO2 93% BMI 29.28 kg/u2Ezlylu Labs 08/14/1803GLUC 147* -- 149*BUN 9* -- 9*CREAT 0.61* -- 0.63*NA 133* -- 132*K 3.8 -- 4.2CHLOR 96* -- 96*CO2 22* -- 23ALB 2.9* -- 3.1*PREALB -- 7* --TRANSF -- -- 218HB -- -- 10.7*HCT -- -- 31.7*WBC -- -- 11.53*P 2.3* -- 2.3*Potential Signs of Inflammation: leukocytosis, hyperglycemia, hypoalbuminemia,low prealbumin and imaging studiesALLERGIESNo Known AllergiesCurrent Facility-Administered Medications:oxyCODONE IR 5 mg tab(s) (ROXICODONE) 5 mg ORAL q 4 H PRNiv contrast (radiology procedure) INTRAVENOUS DIRECTED PRNsodium phosphate 15 mmol in D5W 250 mL 15 mmol INTRAVENOUS ONCEheparin 5,000 Units injection 5,000 Units SUBCUTANEOUS q 12 Hcarvedilol 12.5 mg tab(s) (COREG) 12.5 mg ORAL BID w MEALSnitroglycerin sublingual 0.4 mg tab(s) (NITROQUICK) 0.4 mg SUBLINGUAL q 5 MINPRNdextrose 40 % 15 g (INSTA-GLUCOSE) 15 g ORAL PRNOrglucagon 1 mg injection (GLUCAGEN) 1 mg INTRAMUSCULAR PRNOrdextrose 50% in water 25 mL syringe 12.5 g INTRAVENOUS PRNinsulin lispro injection (rapid acting) (HumaLOG) SUBCUTANEOUS q 6 Haspirin, enteric coated 162 mg tab(s) (ASPIRIN, ENTERIC COATED) 162 mg ORALDAILYHYDROmorphone 0.2 mg injection (DILAUDID) 0.2 mg INTRAVENOUS q 2 H PRNacetaminophen 650 mg tab(s) (TYLENOL) 650 mg ORAL q 6 H PRNNaCl 0.9% iv infusion 100 mL/hr INTRAVENOUS CONTINUOUSIntake/Output 08/13/17 0700 - 08/14/17 0659 08/14/17 0700 - 08/15/17 0659 Intake (ml) 427 20 Output (ml) 1190 630 Net (ml) -763 -610Surgical Incision 08/14/17 0103 Abdomen - Laparoscopy Sites (Active)Dressing Status None: Open to Air 08/14/2017 8:00 AMIncision Closures Topical Skin Adhesive 08/14/2017 8:00 AMDrainage Description None 08/14/2017 8:00 AMDrainage Amount None 08/14/2017 8:00 AMHematoma No 08/14/2017 8:00 AMNumber of days:0MNT Billing Type: Initial Assess/15 min 5 unitsSIGNATURE: Alise Lopez, RD, LD PATIENT NAME: Rocio JacksonDATE: August 14, 2017 : 2:31 PM PAGER: For further assistance and weekends please page the GroupPager [phone] Stewart, RN, RN 08/14/2017 6:27 PM Signed Nursing Progress NotePatient Name: Rocio JacksonMRN: [id number] Location: [place] [address]/[id number] ____Daily Note:1800-Patient reporting a significant increase in pain. Ratingabdominal pain 10/10 and stating he did not feel this bad earlier. Medicatedwith dilaudid at this time. Upon assessment a slight increase in abdominaldistention was noted as well as a change in the fluid color from the ROMINA drain.Pt was putting out a yellow serous liquid, now putting out a dark tea coloredfluid. Call placed to surgical services manager to notify, he will be up to see thepatient. Repositioned for comfort, no new orders at this time.1810-Resident is in to see patient, orders to continue to monitor. Call placedto CT to determine when patient will be taken down. Per plc technician the patient [place] the transport list and CT will be completed soon.is note was completed by: Radha Pacheco 08/14/2017 7:17 PM Signed Radiology Service Progress NotePATIENT NAME: Rocio Boudreaux: [id number] OF SERVICE: August 14, 2017TIME: 7:16 PMPATIENT IDENTITY VERIFICATION COMPLETED USING TWO (2) METHODS: Patientconfirmed name verbally and ID band matches..PATIENT GENDER DATA: MalePATIENT RELEVANT IMPLANT DATA REVIEWED: Not ApplicableCONTRAST INDUCED NEPHROPATHY RISK FACTORS: Patient age > 60 yearsCREATININE:CreatinineDa te Value Ref Range Zaholp2408/14/2017 0.61 (L) 0.70 - 1.40 mg/dL Final08/14/2017 0.63 (L) 0.70 - 1.40 mg/dL Final eGFR-All Other RacesDate Value Ref Range Sbutpc2508/14/2017 >60 >60 . Final eGFR- AmericanDate Value Ref Range Zgtnep5308/14/2017 >60 >60 Final P.O.C.T. RESULTS: POC done: Yes, See Lab Tab August 14, 2017RADIOLOGIST NOTIFIED?: NoALLERGIES: Reviewed and unchangedCONTRAST ALLERGY: NO.PERIPHERAL IV ACCESS: Inpatient: see MIRIAM documentationRADIOLOGY DEPARTMENT: CT; Exam(s) Completed: Abdomen/Pelvis , Chest andPancreasSIGNED BY: Albert Vaughan 2017 7:16 Ignacio Serrato CNP 08/15/2017 4:44 PM Attested ----Attestation signed by Lourdes Ferrari at 08/17/2017 10:00 AMATTENDING NOTE:?I performed a history and physical examination of the patient and supervisedand discussed plan of care and management with the PA/SUPERVISOR SILVERING DEPARTMENT. I reviewed thePA/SUPERVISOR SILVERING DEPARTMENT's note and agree with the documented findings and plan of care.? ?Thank you for allowing us to participate in the care of this patient. Pleasecall with any questions or concerns.Anika TamayoBagley Medical Center GastroenterologyPaencompass health [facility] [phone] --------CONSULT: [facility] Gastroenterology SERVICESERVICE DATE: 08/15/2017SERVICE TIME: 9:04 AMREASON FOR CONSULT: ERCPREQUESTING PHYSICIAN: Dr. [facility] PH[facility]IAN: No primary care provider on file.SubjectiveMr. Jackson is a 62 year old male with PMH of CAD s/p stent x2, type 2 DM onmetformin, HTN, glaucoma, PSH of cholecystectomy (08/11/2017, ERCP 08/13/17) whowas transferred from [facility] of [facility] due to ulcerated mass possibleadenocarcinoma.The patient states that he had intermittent RUQ abdominal pain for sometime and became acutely worse. He subsequently underwent cholecystectomy [facility]. He had persistent pain and elevated LFT's following the richelle andunderwent ERCP on 08/13/17 which showed a duodenal mass and was biopsied. [facility] further evaluation and treatment. Following admissionpatient developed worsening abdominal pain, abdominal distention. CT scan notedwall thickening involving the descending duodenum in this patient with a knownduodenal mass. ?There is dilatation of the intra and extrahepatic biliary treeand ascites. Patient has post operative ROMINA drain in place and plan by surgery toreplace today.Labs noted Alk phos 727, T bili 2.3, AST 285, ALT 370, and new lbqmaworxrxa91.53-->16.33.No t currently on antibiotics.FUNCTIONAL STATUS: IndependentPAST MEDICAL HISTORYDiagnosis Date- Bleeding ulcer 11/15/2016 required 5 blood transfusions- Diabetes mellitus (HCC) 2016- Glaucoma- Hypertension- Myocardial infarction 05/15/2011PAST SURGICAL HISTORYProcedure Laterality Date- ANGIOPLASTY HX 05/15/2011 2 stents s/p MD;[facility]- CHOLECYSTECTOMY 08/11/2017 [facility] [place]No family history on file.Social HistorySubstance Use Topics- Smoking status: Former Smoker Types: Cigarettes Quit date: 2010- Smokeless tobacco: Never Used- Alcohol use 1.5 oz/week 1 Cans of Beer (12oz) per week Comment: occasional beerPrescriptions Prior to Admission:aspirin, enteric coated (ECOTRIN LOW STRENGTH) 81 mg EC tablet Take 162 mg bymouth once daily. Disp: Rfl: Past Week at Unknown timelisinopril 2.5 mg tablet Take 2.5 mg by mouth once daily. Disp: Rfl: 08/11/2017at 0900atorvastatin (LIPITOR) 40 mg tablet Take 40 mg by mouth daily at bedtime. Disp:Rfl: 08/10/2017 at 2100carvedilol (COREG) 12.5 mg tablet Take 12.5 mg by mouth twice daily with meals.Disp: Rfl: 08/11/2017 at 0900metFORMIN (GLUCOPHAGE) 1,000 mg tablet Take 1,000 mg by mouth twice daily withmeals. Disp: Rfl: Past Week at Unknown timeOmeprazole Magnesium 20 mg cpDR Take 20 mg by mouth twice daily. Disp: Rfl:08/11/2017 at 0900nitroglycerin sublingual (NITROSTAT) 0.4 mg SL tablet Dissolve 0.4 mg under thetongue every 5 minutes as needed. Disp: Rfl: has never takensAXagliptin (ONGLYZA) 5 mg tab Take by mouth once daily. Disp: Rfl: 08/10/2017at 0900[facility] medications:oxyCODONE IR 5 mg tab(s) (ROXICODONE) 5 mg ORAL q 4 H PRNiv contrast (radiology procedure) INTRAVENOUS DIRECTED PRNheparin 5,000 Units injection 5,000 Units SUBCUTANEOUS q 12 Hcarvedilol 12.5 mg tab(s) (COREG) 12.5 mg ORAL BID w MEALSnitroglycerin sublingual 0.4 mg tab(s) (NITROQUICK) 0.4 mg SUBLINGUAL q 5 MINPRNdextrose 40 % 15 g (INSTA-GLUCOSE) 15 g ORAL PRNglucagon 1 mg injection (GLUCAGEN) 1 mg INTRAMUSCULAR PRNdextrose 50% in water 25 mL syringe 12.5 g INTRAVENOUS PRNinsulin lispro injection (rapid acting) (HumaLOG) SUBCUTANEOUS q 6 Haspirin, enteric coated 162 mg tab(s) (ASPIRIN, ENTERIC COATED) 162 mg ORALDAILYHYDROmorphone 0.2 mg injection (DILAUDID) 0.2 mg INTRAVENOUS q 2 H PRNacetaminophen 650 mg tab(s) (TYLENOL) 650 mg ORAL q 6 H PRNNaCl 0.9% iv infusion 100 mL/hr INTRAVENOUS CONTINUOUSAllergies As of Date: 08/13/2017(No Known Allergies)Fully Assessed 08/13/2017COMPLETE REVIEW OF SYSTEMS:General Appearance: No apparent distress and lying in bed; mood somberSkin: No jaundice and No rashEyes: NormalHENT: Oropharnyx clear with moist mucous membranesNeck: Grossly normalLungs: Clear to auscultationCV: Regular rate and rhythmAbdomen: Soft, tender, BS presentGU: Not examinedMusculoskeletal: No edemaLymphatics: Not examinedNeuro: Alert and oriented to time, place, and personObjectivePHYSICAL EXAM:General Appearance: No apparent distress and lying in bed; mood somberSkin: No jaundice and No rashEyes: NormalHENT: Oropharnyx clear with moist mucous membranesNeck: Grossly normalLungs: Clear to auscultationCV: Regular rate and rhythmAbdomen: Soft, distended, tender throught, BS presentGU: Not examinedMusculoskeletal: No edemaLymphatics: Not examinedNeuro: Alert and oriented to time, place, and personBP 120/76 Pulse 69 Temp (Src) 98.4 (Oral) Resp 18 Ht 5' 8 (1.73m) Wt192 lb 9.6 oz (87.4kg) SpO2 92% BMI 29.29 kg/(m2).DATA:Diagnostic tests reviewed for today's visit:All imaging and lab resultsImpression/Recommenda tions62 yoM s/p cholecystectomy with persistent pain, nausea, vomiting and elevatedLFT's. Post op course included ERCP which demonstrated two fluid collections andpartially obstructing duodenal mass.Plan:-Blood and urine cultures-follow CBC/CMP-plan for ERCP with possible duodenal stent placement on 08/[address] Nava-Pain and symptom control as per primary service-Maintain NPO-IV Cipro web services professional for ERCP (ordered)D/w Dr. Nava and Dr. AquinoattSIGNATURE: Gissell Serrato CNP PATIENT NAME: Rocio JacksonDATE: August 15, 2017 : 9:04 AM PAGER: [phone] M Beskid, RN, RN 08/15/2017 6:48 PM Addendum Nursing Progress NotePatient Name: Rocio JacksonMRN: [id number] Location: [place] [address]/[id number] ____Daily Note:Pt phos level 2.2 - text page to SROC to make aware. Pt resting inbed and is alert and oriented times 3. Pt rating pain 7/10 in abdomen andgeneralized in whole area. Medicated w/ PRN pain medication. Lungs clear andabdomen distended and tender. Pt jaundiced. IV fluids infusing per AUG.ENcouraged use of incentive spirometer. Pt not able to take deep breaths.1235: Sepsis alert on pt. Text page to SROC to make aware. Temp 99.5, 106 pulse,128 RR, WBC 16.33. Will cont to monitor pt.1530: Pt returned from IR and RN that gave report stated that pt was in afib onmonitor down there. Pt heart rate elevated. Text page to SROC to make aware.1715: SROC at bedside to assess patient. Pt states his pain has lessened sincedrain placed. Accordian drain draining brown/bloody fluid. Order for EKG, and NSbolus placed. Order to replace phos ordered. NG output bile color. Pt urine darkamber. Pt has productive cough. Verified w/ SROC ok to administer scheduledcoreg. Safety maintained and call light within reach.1810: Pt heart rate sustaining between 120-140. Text page to gen surg to makeaware. Pt asymptomatic at this time. Will cont to monitor.1630: NS bolus ordered. Made resident aware of pt's productive cough. Safetymaintained.This note was completed by: Saima Richardson, RNPrevious Baylee Barber, CARLOS, LD 08/15/2017 1:17 PM AddendumNUTRITION SUPPORT TEAMTOPIC: NUTRITION SUPPORT PROGRESS NOTEPATIENT NAME: Rocio JacksonMRN: [id number] OF : 1955DATE: 08/15/2017Nutritional Status: SEVERE PROTEIN CALORIE MALNUTRITION in the context of acuteIllness or Injury based on weight loss, subcutaneous fat loss and muscle lossConsult for Nutrient IntakeInterval History: per surgeryMrDary Jackson is a 62 year old male with PMH of CAD s/p stent x2, type 2 DM onmetformin, HTN, glaucoma, PSH of cholecystectomy (08/11/2017), ERCP (08/13/17) whowas transferred from OSH for management of partial duodenal obstruction.Symptoms of vomiting x 1 month with vague abdominal pain, thought to becholecystitis, underwent lap cholecystectomy (1 ROMINA drain left in place).Readmitted for abdominal pain and vomiting, underwent ERCP which shows aulcerated mass in junction of D1/D2, no visualization of ampulla. On examabdomen soft, mildly distended, mild diffuse tenderness. Afebrile, HDS. ERCP inOS shows partial obstruction of D1/D2 from annular lesion, possibleadenocarcinoma.Imp: Partial duodenal obstruction, likely due to malignancyAssessment: Recommendations:Discussed with RN - no central line placed for TPNPage out to surgery and RN also has page outTPN recommendations to be made once cental line available.IF line placed 08/16Can use start up of 510 dextrose kcal , 100 ml/hr continuous, 130 gms protein,540 fat kcalStandard electrolytes or based on lab valuesCalcium gluconate 10 mEqMagnesium sulfate 20 mEqSodium phosphate 30 mMolPotassium acetate 100 mEqSodium chloride 50 mEqSodium acetate 15 mEqMVI with mineral and trace elements Dosing Weight: 87 kgResting Metabolic Rate: 1661Estimated kilocalorie needs: 6267-2933 kilocalories determined by 25-28 kcal/kgEstimated protein needs:113 - 130 grams determined by 1.3-1.5 g/kg DosingweightEstimated fluid needs: 2200 - 2400 milliliters based on 1 mL per kcalVitals:Temperature Max in 24 hours: Temp (24hrs), Av ?C (98.6 ?F), Min:36.6 ?C(97.8 ?F), Max:37.5 ?C (99.5 ?F)Current Vital Signs: BP 112/72 Pulse 106 Temp 37.5 ?C (99.5 ?F) (Oral) Resp 18 Ht 172.7 cm (5' 8 ) Wt 87.4 kg (192 lb 9.6 oz) SpO2 92% BMI29.28 kg/f5Fzmspfw Weight: Weight: 87.4 kg (192 lb 9.6 oz)Intake AND Output:Intake/Output Summary (Last 24 hours) at 08/15/17 1257Last data filed at 08/15/17 1246 Gross per 24 hourIntake 2843 mlOutput 2465 mlNet 378 mlLaboratory Data:Recent Labs 08/14/1813NA 136 -- 133* 132*K 3.5 -- 3.8 4.2CHLOR 98 -- 96* 96*CO2 24 -- 22* 23CREAT 0.62* -- 0.61* 0.63*BUN 12 -- 9* 9*GLUC 151* -- 147* 149*P 2.2* 2.4* 2.3* 2.3*TPROT 6.4 -- 6.4 7.0ALB 2.5* -- 2.9* 3.1*MG 2.0 -- -- --CA 8.7 -- 8.5 8.9Recent Labs [id number] 7*Accuchecks:Glucose, Point of Care (mg/dL)Date Value08/15/2017 141 (A)08/15/2017 154 (A)08/15/2017 138 (A)08/14/2017 148 (A)Alana Barber RD, LDPager: For further assistance and weekends please page the Group Eaopx-[phone] :3Previous Constance Patel MD 08/15/2017 2:07 PM SignedPROCEDURAL SEDATION HISTORY AND PHYSICAL EXAMSERVICE DATE: 08/15/2017SERVICE TIME: 2:05 PMSubjectiveHPI: This is a 62 year old male who presents with fluid collection subxyphoid inabdomen adjacent to stomach.PAST ANESTHESIA HISTORY: No history of adverse eventPAST MEDICAL HISTORYDiagnosis Date- Bleeding ulcer 11/15/2016 required 5 blood transfusions- Diabetes mellitus (HCC) 2017- Glaucoma- Hypertension- Myocardial infarction 05/15/2011PAST SURGICAL HISTORYProcedure Laterality Date- ANGIOPLASTY HX 05/15/2011 2 stents s/p MD;[facility]- [facility]CYSTECTOMY 08/11/2017 [facility]Prior to [facility] medications as of 08/13/17 2301Medication Sig Last Dose Takingaspirin, enteric coated (ECOTRIN LOW STRENGTH) 81 mg EC tablet Take 162 mg bymouth once daily. Past Week at Unknown time Yeslisinopril 2.5 mg tablet Take 2.5 mg by mouth once daily. 08/11/2017 at 0900 Yesatorvastatin (LIPITOR) 40 mg tablet Take 40 mg by mouth daily at bedtime.08/10/2017 at 2100 Yescarvedilol (COREG) 12.5 mg tablet Take 12.5 mg by mouth twice daily with meals.08/11/2017 at 0900 YesmetFORMIN (GLUCOPHAGE) 1,000 mg tablet Take 1,000 mg by mouth twice daily withmeals. Past Week at Unknown time YesOmeprazole Magnesium 20 mg cpDR Take 20 mg by mouth twice daily. 08/11/2017 [id number] Yesnitroglycerin sublingual (NITROSTAT) 0.4 mg SL tablet Dissolve 0.4 mg under thetongue every 5 minutes as needed. has never taken YessAXagliptin (ONGLYZA) 5 mg tab Take by mouth once daily. 08/10/2017 at 0900 YesALLERGIESNo Known AllergiesObjectivePHYSICAL EXAM: The remainder of the physical exam is noncontributory.AIRWAY: Airway Visualization of Uvula: YesMouth opening greater than 2 fingerbreadths: YesNeck Full Range of Motion: YesLUNGS: Lungs clear to auscultation, Good diaphragmatic excursionCARDIAC: Normal S1 and S2; no rubs, murmurs, or gallopsAssessment/PlanASA Class: ASA Class:: Patient with severe systemic diseaseProvisional Diagnosis/Treatment Plan:CT guided abscess drainage, moderatesedation.SEDATION GOAL: ModerateSIGNATURE: Reji Patel MD PATIENT NAME: Rocio VizcarraTE: August 15, 2017 : 2:05 PM PAGER: [phone] Rivero, RN, RN 08/15/2017 3:13 PM SignedAMBULATORY PATIENT EDUCATIONTOPIC: Survival Skills: SURVIVAL SKILLS: Abcess DrainREADINESS TO LEARNCOGNITIVE ABILITY: Alert and orientedMOTIVATION TO LEARN: InterestedFAMILY SUPPORT: None - Unavailable/disinterestedINS TRUCTION PROVIDED TO: PatientPATIENT LEARNS BEST BY: Written Instruction - Hand-outsVerbal InstructionFACTORS AFFECTING LEARNING: NonePHYSICAL LIMITATIONS AFFECTING LEARNING: Fatigue and Limited MobilityLEARNING RESPONSEDIAGNOSIS: AbcessMETHOD OF INSTRUCTION: Written instruction - handoutsVerbal instructionPATIENT / FAMILY RESPONSE: Verbalizes understanding of: [id number]-B orrect actions to take to reduce post procedure complicationsPRE-PROCEDURE INSTRUCTIONS-Correct action to take to follow pre-procedureinstructionsFOL LOW-UP PLAN: Complete - No need for follow-upSUPPLEMENTAL MATERIAL: Title of written material: Abcess drain and SedationinformationREFERRAL (RECOMMENDATION): NoneElectronically Signed By: Dhara Rivero RN In Department: [place] [id number] Patel MD 08/15/2017 2:46 PM SignedRadiology Brief Procedure NoteService date: August 15, 2017Service start time: 210 PMService end time: 2:45 PMPre procedure diagnosis: Abdominal abscessProcedure Performed: CT guided abscess drainage.Post procedure diagnosis: Same as pre procedure diagnosis.Significant Findings: Epigastric abscessSpecimens obtained: 5 FR Yueh, 8 Fr pigtail used. 100+ cc os dark red fluidserous obtained, nearly drained.Anesthesia used: 1% lidocaine. Mod sedationEstimated Blood Loss: Minimal, less than 1 ml.Complications: NoneSIGNATURE: Reji Patel MD PATIENT NAME: Rocio TorresschDATE: August 15, 2017 : 2:45 PM PAGER/CONTACT #: [phone] Win Ct 08/15/2017 2:49 PM Signed Radiology Service Progress NotePATIENT NAME: Rocio JacksonMRN: [id number] OF SERVICE: August 15, 2017TIME: 2:48 PMPATIENT IDENTITY VERIFICATION COMPLETED USING TWO (2) METHODS: Patientconfirmed name verbally and ID band matches..PATIENT GENDER DATA: MalePATIENT RELEVANT IMPLANT DATA REVIEWED: Not ApplicableRADIOLOGY DEPARTMENT: CT; Exam(s) Completed: ABSCESS DRAINAGEPERIPHERAL IV DATA: Not applicableSIGNED BY: Jennifer Win [facility] 2017 2:48 PMAraul Duffy MD 08/15/2017 5:53 PM SignedSurgery Att:Pt seen at 1100 this am.AF last 24 hours. Mild tachycardia. BP stable.Mild tenderness remains in upper abdomen; bilious drainage from ROMINA.WBC increased to 16K.Symptomatic from bilomas/bile leak.Plan: Perc drainage of bilomas today, which should control bile leak.ERCP/stent would hopefully resolve bile leak if able to be completed.Continue atbx and follow clinical course.Khadar Duffy MDFebruary 2017 5:53 PM(late entry)Kael Hernandez MD, MD 08/15/2017 7:29 PM SignedMO[facility] SUR[facility]ERY PROGRESS NOTENAME: Rocio JacksonMRN: [id number] 2017 7:20 PMASSESSMENT AND PLAN:Mr. Jackson is a 62 year old male with PMH of CAD s/p stent x2, type 2 DM onmetformin, HTN, glaucoma, PSH of cholecystectomy (08/11/2017), ERCP (08/13/17) whowas transferred from OSH for management of partial duodenal obstruction.Symptoms of vomiting x 1 month with vague abdominal pain, thought to becholecystitis, underwent lap cholecystectomy (1 ROMINA drain left in place).Readmitted for abdominal pain and vomiting, underwent ERCP which shows aulcerated mass in junction of D1/D2, no visualization of ampulla. On examabdomen soft, mildly distended, mild diffuse tenderness. Afebrile, HDS. ERCP inOSH shows partial obstruction of D1/D2 from annular lesion, possibleadenocarcinoma.Imp: Partial duodenal obstruction, likely due to malignancyPt was hypotensive and tachycardic during the day. EKG revealed A-fib. [id number] NSB, responded to bolus.IR drained 110cc dark serous fluid on 08/15- Continue pain control regimen- FEN/GI: NPO diet; mIVF- Abx: Cipro- Prophylaxis: DVT prophylaxis, IS, OOB, ambulate- Telemetry- PICC line placement- Nutrition consult for TPN- Dispo: ARLINE HERNANDEZ MDWiregrass Medical Center SurgeryPager: [phone]*On weekends or nights (after 1800) please contact the surgery web services professional pager.*SUBJECTIVE: No acute issues overnight and during the day. Resting comfortablyin bed.OBJECTIVE:BP 109/58 Pulse 78 Temp 36.3 ?C (97.4 ?F) (Oral) Resp 18 Ht 172.7 cm (5'8 ) Wt 87.4 kg (192 lb 9.6 oz) SpO2 94% BMI 29.28 kg/t1GBOTLZH: alert, NADLUNGS: breathing comfortablyCARDIAC: irregularABDOMEN: mildly TTP in upper abd, mildly distended, softEXTREMITIES: warm and well perfusedDRAINS/LINES: bilious drainage from JPDate 08/14/17 1500 - 08/15/17 0659 08/15/17 0700 - 08/16/17 0659Shift 8100-7514 0543-1770 24 Hour Total 1151-3878 0496-1975 4110-1960 24 HourTotalINTAKE PO 60 60 30 30 PO 60 60 30 30 IV 2018 2018 514 818 9488 NS 0.9% 2018 2018 932 235 7275 Irrigants 20 40 30 30 Irrigant/Flush Amount In (GI Feed/Drain 08/14/17 0109 Nasogastric Right Naris18 Fr) 20 40 30 30 Shift Total 9 9 744 665 1409OUTPUT Urine 575 1125 425 425 Void (ml) 575 1125 425 425 Tubes 950 829 4216 330 445 775 Drain/Tube Output (Drain/Tube [facility] Right LowerQuadrant Abdomen) 260 30 370 140 70 210 Drain/Tube Output (Drain/Tube 08/15/17 1530 Assessment Right Upper Abdomen)275 275 Output (GI Feed/Drain 08/14/17 0109 Nasogastric Right Naris 18 Fr) 455 7537107 190 100 290 # of BMs Number of BMs 0 x 0 x 0 x 0 x Shift Total 660 1265 2555 330 870 1200Weight (kg) 87.4 87.4 87.4 87.4 87.4 87.4 87.4LABORATORY AND IMAGING:CBCRecent Labs 08/14/1799WBC 16.33* 11.53*HB 11.1* 10.7*HCT 33.4* 31.7*PLT 328 285Metabolic PanelRecent Labs 08/14/1813NA 136 -- 133* -- 132*K 3.5 -- 3.8 -- 4.2CHLOR 98 -- 96* -- 96*CO2 24 -- 22* -- 23CREAT 0.62* -- 0.61* -- 0.63*BUN 12 -- 9* -- 9*GLUC 151* -- 147* -- 149*TPROT 6.4 -- 6.4 -- 7.0ALB 2.5* -- 2.9* -- 3.1*PREALB -- -- -- 7* --MG 2.0 -- -- -- --P 2.2* 2.4* 2.3* -- 2.3*CA 8.7 -- 8.5 -- 8.9ALKPHOS 515* -- 727* -- 832*TBILI 1.7* -- 2.3* -- 2.7*AST 74* -- 285* -- 395*ALT 205* -- 370* -- 418*Deneen Navarro, KEVIN, RN 08/16/2017 4:44 AM Addendum Nursing Progress NotePatient Name: Rocio Boudreaux: [id number] Location: [place] [address]/[id number] ____Daily Note:Late entry 08/15 Labs drawn for start of heparin drip. INR 2.0Order to notify team when INR equal to or greater than 2.0.0350: Team notified that INR 2.0. Order to hold heparin drip until morning labsback with INR results. Will continue to monitor.0428: Text page to surgery for bladder scan of 665 ml and change in NG colorfrom bile to brownish umq0506: SROC up to see and assess pt. Continue to monitor bladder as pt is havingno symptoms of discomfort at this time. Wait to start heparin drip until Amlabs. Continue to monitor NG output.This note was completed by: Kaye May, RN, RN 08/16/2017 6:50 PM Signed Nursing Progress NotePatient Name: Rocio Boudreaux: [id number] Location: [place] [address]/[id number] ____Daily Note:07: SROC alpha paged re: PT/INR result 2.0 from morning lab work, heparin gttorder remains active, requesting clarification. A-fib on nurse monitoring, [phone]'s.0830: Call back recv'd, okay to start heparin gtt per nomogram per surgicalresident Maikol. PICC team @ bedside, will start heparin gtt onceprocedure is completed. New orders recv'd, POC includes: cardiology consult forA-fib, IVF fluid change, K phos replacement, and to hold heparin gtt @ 0200Monday 08/17 for procedure. Pt remains NPO x meds, NGT to LCS maintained,draining brown fluid.0945: Heparin gtt initiated @ 1000 units/hr per EMAR, order recv'd for vitaminK, paged SROC to clarify, Juan Alberto Lassiter states to give vitamin K with heparingtt. Pt A+Ox3, flat affect. Skin jaundiced. Medicated for c/o upper ABD pain.Lap sites x 3 COMMITTEE MEMBER with skin glue, no drainage.1245: Dr Duffy rounding (covering for Dr Jolley) and discussed RN concernsfor INR 2.0 with heparin gtt, and vitamin K order. Per Dr Duffy, stop heparingtt and admin vitamin K. Spoke with DIVIDEND DEPOSIT VOUCHER CLERK for GI service, repeat PT/INR orderedfor 1200 tomorrow 08/17 prior to ERCP scheduled for 1430, and if heparin gttrestarted prior to tomorrow, stop 8 hrs prior to procedure. Dr Duffy discussedPOC and treatment avenues with pt and 2 sisters at bedside. Pt remains Mamadou-fib, HR 110's, cardiology consult for ATC treatment.1530: RUQ acordian drain flushed with 5 cc sterile saline per order, drainingbrown bilious output. RLQ ROMINA drain remains patent with yellow output. Ptremains in A-fib, HR 110's. Pt assisted up to chair, bath provided. Dr Escobar, updated him on POC, states will possibly restart heparin gtt tomorrowafter procedure.1700: Pt medicated with metoprolol 25 mg PO per new order, HR remains 110's.SROC paged for chlorasetic spray and throat lozenge for pt c/o throat irritationfrom NGT.1800: Blood glucose 139, no SSI coverage required. Safety maintained. Ptresting in bed.This note was completed by: Chacho Garcia RN, RN 08/16/2017 8:05 AM SignedPICC/VASCULAR ACCESS PROGRESS NOTESERVICE DATE: 08/16/2017SERVICE TIME: 8:00 amPICC line ordered, heparin gtt currently on hold, plan for patient to receiveTPN, Double lumen chloraguard PICC recommended. Will continue to follow.SIGNATURE: Nolvia Vallejo RN PATIENT NAME: Rocio JacksonDATE: August 16, 2017 : 8:03 AM PAGER/CONTACT #: [phone] Song, RN, RN 08/16/2017 8:34 AM SignedPATIENT EDUCATION TOPIC: PROCEDURE / SURGERY: Procedure/Surgery: PICCinsertion under US guidancePATIENT NAME: Rocio JacksonMRN: [id number] LOCATION: [place] [address]READINES S TO LEARNCOGNITIVE ABILITY: Alert and orientedMOTIVATION TO LEARN: EagerInterestedFAMILY SUPPORT: High - Very involved in pt careINSTRUCTION PROVIDED TO: Patient and Family memberPATIENT LEARNS BEST BY: Individual InstructionVerbal InstructionFACTORS AFFECTING LEARNING: NonePHYSICAL LIMITATIONS AFFECTING LEARNING: NoneLEARNING RESPONSEDIAGNOSIS: ADULT: Duodenal obstructionPATIENT/FAMILY RESPONSE: Verbalizes understanding of: [id number]-Y orrect actions to take to reduce post procedure complicationsPRE-PROCEDURE INSTRUCTIONS-Correct action to take to follow pre-procedureinstructionsMET HOD OF INSTRUCTION: Individual instructionVerbal instructionFOLLOW-UP PLAN: Patient instructed to call with any further issuesFollow-up with Primary CareINSTRUCTIONAL AIDS USED: NASUPPLEMENTAL MATERIAL PROVIDED TO PATIENT: NoneREFERRAL (RECOMMENDATION): NoneElectronically Signed By: Cheyenne Gale RN, RN 08/16/2017 9:07 AM SignedPICC NURSE INSERTION NOTEDATE OF PROCEDURE: August 16, 2017TIME OF PROCEDURE: 0825ORDERING PHYSICIAN: Dr. HooperFORMED CONSENT: Obtained per hospital policy.INDICATION FOR LINE PLACEMENT: Poor veins/circulatory systemCONDITION OF LINE PLACEMENT: SterilePRIMARY PROCEDURALIST: Nolvia Vallejo RNASSISTANT: Luis Shaffer RnPRE-PROCEDURE REVIEWALLERGIESNo Known AllergiesKnown History of Venous Thrombosis: NoKnown History of Permanent Pacemaker or Automated Implanted Cardiac Device: NoPrevious Breast Surgery of Lymph Node Dissection: NoHistory of Renal Disease with Arterio-Venous Fistula in Place or Planned: NoUltrasound Assessment Complete: YesPROCEDURE NARRATIVESAFE PRACTICEHand Hygiene per Hospital Policy: YesSkin Preparation Unit Dose Applicator Used: Chloraprep (CHG + alcohol), allowedto dry.Procedure Surface Cleansed with Antimicrobial Wipes: YesBarriers Used by Proceduralist and all Assisting Personnel: YesUNIVERSAL PROTOCOL / SAFETY CHECKLISTProcedure to be performed: PICC insertion under US guidanceSign in Communication: CompletedTime Out: Team Confirms the Correct Patient, Correct Procedure, Correct Siteand Site Marking, Correct Position (if applicable), Prep and Dry Time (ifapplicable). Time: 0825Affirmation of Time Out: YESSign Out Discussion: Shayan Shaffer RNCATHETER PLACEMENTBrand: Charan Lot: [id number] of Lumens: 2Type of PICC: Power Injectable PICCLumen Size: 5.5 FrenchPLACEMENT TECHNIQUELidocaine: Yes. Strength: 1% Volume 2 ccModified Seldinger Technique Used to Place Line via the Right BasilicUltrasound Guidance: YesNumber of Attempts at Insertion: 1Internal Length: 44 cm External Length: 1 cm Trim Length: 45 cmMid-Arm Circumference Above Insertion Site: 30 centimetersPost Insertion Pain Level Related to Procedure: 0Action Taken to Address Pain: None neededVerified Placement: Blood return, Ultrasound and Chest X-ray ordered and pendingLine was Flushed with 20 cc normal salineLine Secured with: Securement deviceSterile Dressing Applied and Dated: YesSterile Caps on all Ports Prior to Leaving Procedure Area: YesSPECIMENS: NoneCOMPLICATIONS: NonePatient Education Materials: Placed in chartLake[facility] Central Line Insertion checklist, attached to the CentralLine-Associated Bloodstream Infection Prevention Policy, was utilized duringthis procedure.QUESTIONS or PROBLEMS: Page [phone] weekendSIGNATURE: Luis Shaffer RN PATIENT NAME: Rocio VizcarraTE: August 16, 2017 : 8:35 AM PAGER/CONTACT PHONE:Khadar Duffy MD 08/16/2017 1:47 PM Addendum SURGERY INPATIENT PROGRESS NOTESName: Rocio JacksonMRN: [id number] and Plan:62 year old male with 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 Hospital course remarkable for a-fib, cardiology onconsult-Continue surgical (ROMINA) and IR drains-Continue NGT-Pip/tazo-ERCP with stent tomorrow-Heparin gtt, need to hold 6 hours pre procedure tomorrow-No [place]-VTE Prophylaxis: SCDs-Routine surgical care: IS, OOBS: Resting well. A-fib yesterday with mild hypotension, improved with fluidbolus. BM-, Flatus+. Pain well controlled. No nausea. Denies SoB/CP.O:Current hospital medications:potassium phosphate 30 mmol in NaCl 0.9% 250 mL 30 mmol INTRAVENOUS ONCE0.9% NaCl 10 mL 10 mL INTRAVENOUS q 12 H0.9% NaCl 20 mL 20 mL INTRAVENOUS PRNacetaminophen 650 mg tab(s) (TYLENOL) 650 mg ORAL q 6 H PRN[START ON 08/17/2017] ciprofloxacin 400 mg in D5W 200 mL (CIPRO) 400 mgINTRAVENOUS ONCEheparin iv infusion (LOW DOSE ACS/NOMOGRAM) 25,000 units in NaCl 0.45% 250 mLPREMIX 0-3,000 Units/hr INTRAVENOUS CONTINUOUSheparin RATE CHANGE bolus 1,000-4,000 Units for subtherapeutic aptt results1,000-4,000 Units INTRAVENOUS PRNoxyCODONE IR 5 mg tab(s) (ROXICODONE) 5 mg ORAL q 4 H PRNiv contrast (radiology procedure) INTRAVENOUS DIRECTED PRNcarvedilol 12.5 mg tab(s) (COREG) 12.5 mg ORAL BID w MEALSnitroglycerin sublingual 0.4 mg tab(s) (NITROQUICK) 0.4 mg SUBLINGUAL q 5 MINPRNdextrose 40 % 15 g (INSTA-GLUCOSE) 15 g ORAL PRNglucagon 1 mg injection (GLUCAGEN) 1 mg INTRAMUSCULAR PRNdextrose 50% in water 25 mL syringe 12.5 g INTRAVENOUS PRNinsulin lispro injection (rapid acting) (HumaLOG) SUBCUTANEOUS q 6 Haspirin, enteric coated 162 mg tab(s) (ASPIRIN, ENTERIC COATED) 162 mg ORALDAILYHYDROmorphone 0.2 mg injection (DILAUDID) 0.2 mg INTRAVENOUS q 2 H PRNNaCl 0.9% iv infusion 100 mL/hr INTRAVENOUS CONTINUOUSBP 117/60 Pulse 92 Temp 36.7 ?C (98 ?F) (Oral) Resp 17 Ht 172.7 cm (5'8 ) Wt 87.4 kg (192 lb 9.6 oz) SpO2 92% BMI 29.28 kg/o8Bqmhzp/Output Summary (Last 24 hours) at 08/16/17 0835Last data filed at 08/16/17 0631 Gross per 24 hourIntake 3079 mlOutput 2640 mlNet 439 mlGeneral Appearance: NADAbdomen: soft, non-tender, mild distention. Drains in place, bilious output.Akbar Lassiter MDGENERAL SURGERY PGY-48:35 AM08/16/2017*A review of daily goals, interventions, and plan of care with themultidisciplinary team and patient has been conducted. The patient?s concernshave been addressed and he/she agrees to proceed with today?s plan of care.Attending: above. Feels and looks much better s/p perc drain placement.INR up to 2 - no hx of anticoagulation.new onset atrial fibrillation.ERCP planned for tomorrow. Will give vit K, and stop heparin gtt as INR isalready therapeutic.May need FFP if INR still high tomorrow.My concern is that he may have duodenal obstruction, in which case ERCP wouldn'tbe able to be completed.Will await ERCP results tomorrow.Khadar Duffy MDFebruary 2017 1:47 PMPrevious Rommel Serrato CNP 08/16/2017 12:58 PM SignedIn anticipation of ERCP tomorrow:INR notedPatient will need Vitamin K today and stat INR one hour prior to procedure(ordered)Stop Heparin drip 6 hrs prior to procedure as per surgeryDiscussed with Dr. Candelaria you for allowing us to participate in the care of Mr. Jackson. Please callwith any questions or concerns.Gissell Serrato [facility]ITALNorthshore GastroenterologyOffice: Cell: Yktvxe Kenny Ferrari MD 08/16/2017 6:45 PM AddendOwatonna Hospital Gastroenterology Progress NoteSERVICE DATE: August 16, 2017SUBJECTIVENo abd pain, n/v, f/c. Afib overnight. Passing gas. No BM.OBJECTIVEMEDICATIONSCurre osteopathic hospital of [facility] medications:potassium phosphate 30 mmol in NaCl 0.9% 250 mL 30 mmol INTRAVENOUS ONCEdextrose 5% in NaCl 0.9% iv infusion 125 mL/hr INTRAVENOUS CONTINUOUSphytonadione (vitamin K1) 10 mg in D5W 50 mL 10 mg INTRAVENOUS ONCE0.9% NaCl 10 mL 10 mL INTRAVENOUS q 12 H0.9% NaCl 20 mL 20 mL INTRAVENOUS PRNacetaminophen 650 mg tab(s) (TYLENOL) 650 mg ORAL q 6 H PRN[START ON 08/17/2017] ciprofloxacin 400 mg in D5W 200 mL (CIPRO) 400 mgINTRAVENOUS ONCEoxyCODONE IR 5 mg tab(s) (ROXICODONE) 5 mg ORAL q 4 H PRNiv contrast (radiology procedure) INTRAVENOUS DIRECTED PRNcarvedilol 12.5 mg tab(s) (COREG) 12.5 mg ORAL BID w MEALSnitroglycerin sublingual 0.4 mg tab(s) (NITROQUICK) 0.4 mg SUBLINGUAL q 5 MINPRNdextrose 40 % 15 g (INSTA-GLUCOSE) 15 g ORAL PRNglucagon 1 mg injection (GLUCAGEN) 1 mg INTRAMUSCULAR PRNdextrose 50% in water 25 mL syringe 12.5 g INTRAVENOUS PRNinsulin lispro injection (rapid acting) (HumaLOG) SUBCUTANEOUS q 6 Haspirin, enteric coated 162 mg tab(s) (ASPIRIN, ENTERIC COATED) 162 mg ORALDAILYHYDROmorphone 0.2 mg injection (DILAUDID) 0.2 mg INTRAVENOUS q 2 H PRNPE 08/16/1806 [id number] [id number]: 108/64 117/60 113/66Pulse: 92 (!) 128 92 96Resp: 18 17 16Temp: 36.9 ?C (98.4 ?F) 36.7 ?C (98 ?F) 37.4 ?C (99.3 ?F)TempSrc: Oral Oral OralSpO2: 92% 92% 95%Weight:Height:Body mass index is 29.28 kg/(m2).GENERAL: NAD, WRSq2JDPAF: PERRLA, EOMI, normal OPCV: RRR, normal S1, S2, no mrgABDOMEN: Soft, non-tender, non-distended, normoactive BS, ROMINA drain w bileEXT: wwp, no cceNeuro: grossly nonfocalLABSreviewedIMAGINGr eviewedASSESSMENT AND PLANMrDary Jackson is a 62 year old male with a history notable for PAFib not onanticoag as outpt, CAD s/p PCI x2 2013, type 2 DM on metformin, HTN, glaucoma.He underwent lap richelle for ?cholecystitis at OSH on 08/11 which was c/b bileleak. Attempt at OSH ERCP showed an ulcerated mass in junction of D1/D2, novisualization of ampulla; bx pending of duodenal mass. IR drainage of bilomascompleted.-EGD w/ ERCP tomorrow; if latter unsuccessful, may place duodenal stent forgastric outlet obstruction and require PTC-agree with vit K; INR likely elevated 2/2 bile leak-Recheck INR in AM; may need FFP if INR>1.5 in AM-Hold at least heparin gtt 6 hours prior to ERCP-f/u on bx from duodenal mass done at OSHThank you for allowing us to participate in the care of this patient. Pleasecall with any further questions or concerns.Lourdes Ferrari MDSnoqualmie GastroenterologyPg#: [phone]: Lourdes Ferrari MD PATIENT NAME: Rocio JacksonDATE: August 16, 2017 : 2:42 PM PAGER: [phone] VersionRaviscristian Mayorga MD 08/16/2017 4:39 PM AddendumCONSULT: CARDIOLOGY SERVICESERVICE DATE: August 16, 2017SERVICE TIME: 3:56 PMCONSULTING PHYSICIAN: Dr. Jessee MayorgaPCP: No primary care provider on file.ATTENDING: Michael Ceidllo) Moiz FOR CONSULT: ArrhythmiasASSESSMENT AND PLAN:Principal Problem:Atrial fibrillation.Persistent AF, ventricular rates +/- 110.Patient denies awareness.Hx of PAF, first episode 10/2016 in the setting of GI bleed. Treated withamiodarone which was stopped one month ago.On heparin infusion. Inr is elevated 2.0On home dose coreg 12.5 BIDPlan:Switch to metoprolol 25 TID.Monitor.CAD. Remote MD, PCI in 2013.No angina.Duodenal mass and obstructive jaundices/p perc drain placement.-plan is for ERCP with possible duodenal stent placement tomorrow.[facility] STAFF PHYSICIAN NOTE OF PERSONAL INVOLVEMENT IN CAREIMPRESSION:PLAN:As aboveDiscuss his cardiac status with the surgical team black last night once the ERCPperformed tomorrow reevaluate for anticoagulationNow continue beta blockers to control the ventricular response. 2-Dechocardiogram to assess the left atrial size and LV size and functionHistory of CAD stable no anginaThank you very much for allowing me to participate in this patient's careI have reviewed the documentation obtained and documented by the NursePractitioner and have reviewed and updated the problem list as appropriate. Ihave personally performed a face to face assessment of the patient and havepersonally participated in the figueroa components. I have discussed the case andmanagement of the patient's care.STAFF PHYSICIAN: Jessee Mayorga, MDDATE OF SERVICE: August 16, 2017TIME OF SERVICE: 4:36 PMCHI COMPLAINT: abdominal painRocio Jackson is a 62 year old male, [facility] [place]. [place]Cardiologist in [place].History of CAD, MD s/p stent x2 in 2013, DM II, hypertension, glaucoma, recentcholecystectomy 08/11/2017, ERCP 08/13/17-showed multiple fluid collections andpartial duodenal obstruction due to ulcerated mass, possible adenocarcinoma.Subsequently transferred from [facility].-Worsening abdomina pain, leukocytosis. Followed by general surgery.s/p CT guided drainage of abdominal abscess on 08/15.Tachycardic yesterday, placed on telemetry and has been in persistent atrialfibrillation since that time. Intermittent hypotension has responded to IVfluids. Maintained on his home dose coreg 12.5 BID.Patient reports having acute GI bleed, required 5 Units of blood in October. He hadatrial fibrillation for the first time than.Treated with amiodarone. He states the amiodarone was stopped one month ago.There had been no AF recurrence that he was aware of. He was not started onblood thinners.?MEDICATIONS:Arnol nathan Facility-Administered Medications:dextrose 5% in NaCl 0.9% iv infusion 125 mL/hr INTRAVENOUS CONTINUOUS0.9% NaCl 10 mL 10 mL INTRAVENOUS q 12 H0.9% NaCl 20 mL 20 mL INTRAVENOUS PRNacetaminophen 650 mg tab(s) (TYLENOL) 650 mg ORAL q 6 H PRN[START ON 08/17/2017] ciprofloxacin 400 mg in D5W 200 mL (CIPRO) 400 mgINTRAVENOUS ONCEoxyCODONE IR 5 mg tab(s) (ROXICODONE) 5 mg ORAL q 4 H PRNiv contrast (radiology procedure) INTRAVENOUS DIRECTED PRNcarvedilol 12.5 mg tab(s) (COREG) 12.5 mg ORAL BID w MEALSnitroglycerin sublingual 0.4 mg tab(s) (NITROQUICK) 0.4 mg SUBLINGUAL q 5 MINPRNdextrose 40 % 15 g (INSTA-GLUCOSE) 15 g ORAL PRNOrglucagon 1 mg injection (GLUCAGEN) 1 mg INTRAMUSCULAR PRNOrdextrose 50% in water 25 mL syringe 12.5 g INTRAVENOUS PRNinsulin lispro injection (rapid acting) (HumaLOG) SUBCUTANEOUS q 6 Haspirin, enteric coated 162 mg tab(s) (ASPIRIN, ENTERIC COATED) 162 mg ORALDAILYHYDROmorphone 0.2 mg injection (DILAUDID) 0.2 mg INTRAVENOUS q 2 H PRNPAST MEDICAL HISTORYDiagnosis Date- Bleeding ulcer 11/15/2016 required 5 blood transfusions- Diabetes mellitus (HCC) 2016- Glaucoma- Hypertension- Myocardial infarction 05/15/2011PAST SURGICAL HISTORYProcedure Laterality Date- ANGIOPLASTY HX 05/15/2011 2 stents s/p MD;[facility]- CHOLECYSTECTOMY 08/11/2017 [facility]- PICC LINE INSERT/CONSULT 08/16/2017Past Family History:non contributorySocial History Marital status: Unknown Spouse name: Years of education: Number of children:Social History Main Topics Smoking status: Former Smoker Packs/day: 0.00 Years: 0.00 Types: Cigarettes Quit date: 2010 Smokeless status: Never Used Alcohol use: Yes 1.5 oz/week 1 Cans of Beer (12oz) per week Comment: occasional beer Drug use: NoALLERGIESNo Known AllergiesCOMPLETE REVIEW OF SYSTEMS:The following systems were reviewed with the patient, and are unremarkable otherthan as described below.SYSTEMIC: No fever, chills, or change in weight or appetiteHEENT: No recent change in vision or hearing.GI: See HPIGU: No recent hematuria or dysuria.SKIN: No recent itching or eruption.PSYCH: No recent active anxiety or depression.HEMATOLOGY/ONCOLO GY: No recent diagnosis of bleeding or cancer.NEURO: No recent TIA, stroke or seizures.RHEUMATOLOGY: No recent active connective tissue disease.ENDOCRINE: No recent diagnosis of DM or thyroid disease.PHYSICAL EXAM:BP 113/66 Pulse 96 Temp (Src) 99.3 (Oral) Resp 16 Ht 5' 8 (1.73m) Wt192 lb 9.6 oz (87.4kg) SpO2 95% BMI 29.29 kg/(m2).Pleasant, comfortable, not in acute distress.Awake, alert, oriented times 3.Moves all extremities.NECK: Supple, no JVDLUNGS: Clear to auscultation bilaterally.CARDIAC: PMI present, RRR, S1 and S2, no S3 or S4, no additional heart sounds ormurmurs.ABDOMEN: generalized tenderness.EXTREMITIES: No edema.PULSES: Peripheral pulses present.CBC, Coags, BMP, Mg, PhosRecent Labs 08/15/1820WBC 11.42* 12.79* 16.33* -- -- 11.53*HB 9.8* 9.7* 11.1* -- -- 10.7*HCT 29.9* 29.3* 33.4* -- -- 31.7*PLT 335 302 328 -- -- 285INR 2.0* 2.0* -- -- 1.5* 1.5*APTT -- 39.8* -- -- 31.6 30.2NA -- -- 136 -- 133* 132*K -- -- 3.5 -- 3.8 4.2CHLOR -- -- 98 -- 96* 96*CO2 -- -- 24 -- 22* 23BUN -- -- 12 -- 9* 9*CREAT -- -- 0.62* -- 0.61* 0.63*GLUC -- -- 151* -- 147* 149*CA -- -- 8.7 -- 8.5 8.9MG 2.3 -- 2.0 -- -- --P 2.1* -- 2.2* 2.4* 2.3* 2.3*Liver Function, Amylase, AND LipaseRecent Labs 08/14/1803TPROT 6.4 6.4 7.0ALB 2.5* 2.9* 3.1*ALT 205* 370* 418*AST 74* 285* 395*ALKPHOS 515* 727* 832*TBILI 1.7* 2.3* 2.7*AMYLASE -- -- 59LIPASE -- 43 58Cardiac EnzymesDATA:Diagnostic tests reviewed for today's visit:Most recent labs and imaging results.Most recent EKGTelemetrySIGNATURE: Sabrina Arango CNP PATIENT NAME: Rocio JacksonDATE: August 16, 2017 : 3:56 PM PAGER/CONTACT #:Previous Jacqui Duffy MD 08/17/2017 2:42 PM AddendumPROGRESS NOTES - SURGICAL SERVICESPATIENT NAME: Rocio JacksonMRMarisa: [id number] HISTORY OF PRESENT ILLNESS:No acute events overnight. Pain well controlled. No nausea or vomiting.PHYSICAL EXAM:BP 128/77 Pulse 100 Temp 37.1 ?C (98.8 ?F) (Oral) Resp 17 Ht 172.7 cm(5' 8 ) Wt 87.4 kg (192 lb 9.6 oz) SpO2 94% BMI 29.28 kg/m2Body mass index is 29.28 kg/(m2).GENERAL: Alert and oriented, no acute distress, cooperative.CARDIAC: regular rate and rythmLUNGS: Non labored breathingABDOMEN: soft, non tender, non distended.CBC, Coags, BMP, Mg, PhosRecent Labs 08/16/1805WBC 7.02 11.42* 12.79* 16.33*HB 9.1* 9.8* 9.7* 11.1*HCT 27.4* 29.9* 29.3* 33.4*PLT 319 335 302 328INR -- 2.0* 2.0* --APTT -- -- 39.8* --NA 148* -- -- 136K 3.2* -- -- 3.5CHLOR 110 -- -- 98CO2 26 -- -- 24BUN 14 -- -- 12CREAT 0.68* -- -- 0.62*GLUC 158* -- -- 151*CA 8.2* -- -- 8.7MG 2.4 2.3 -- 2.0P 2.3* 2.1* -- 2.2*Liver Function, Amylase, AND LipaseRecent Labs 08/15/1803TPROT 6.1 6.4ALB 2.5* 2.5*ALT 90* 205*AST 36 74*ALKPHOS 304* 515*TBILI 1.1 1.7*Intake/Output Summary (Last 24 hours) at 08/17/17 0815Last data filed at 08/17/17 0522 Gross per 24 hourIntake 2570.4 mlOutput 1994 mlNet 575.4 mlSURGERY/PROCEDURE:Procedur e(s) and Anesthesia Type: * ERCP - Monitored Anesthesia CareASSESSMENT AND PLAN:62 year old male with 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 Hospital course remarkable for a-fib, cardiology onconsult-Continue surgical (ROMINA) and IR drains-Continue NGT- F/U INR this am- Cardio consulted for new onset A fib- F/U recs-Pip/tazo-ERCP today (will need to confirm for stent placement)-Hold Heparin gtt for the procedure-No [place]-VTE Prophylaxis: SCDs-Routine surgical care: IS, OOBSIGNATURE: Kayleen Kraftderrick, MDDATE: August 17, 2017TIME: 8:15 AMAtt: As above. Await results of ERCP. Clinically improved.Khadar Duffy MDFebruary 2017 2:[address], LD 08/17/2017 11:43 AM SignedNUTRITION THERAPY PROGRESS NOTESERVICE DATE: 08/17/2017SERVICE TIME: 10:20 AMRECOMMENDED DIAGNOSIS: SEVERE PROTEIN-CALORIE MALNUTRITION per RegisteredDietitian on 08/14NUTRITION CARE PLANIntervention:NPO x 4 days in hospitalNGIV Fluids 125 ml hr D5 NS = 510 kcal from dextrosePaged Surgery for plan regarding route of feeds - TPN vs TFMonitor and Evaluation:Goal: Meet >75% of estimated needsMonitor fluid/electrolyte balanceMonitor labs, I/Os, vital signs, weightDischarge Nutrition Recommendations:To be determinedPer HPI: 62 year old male with 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 Hospital course remarkable fora-fib, cardiology on consult?-Continue surgical (ROMINA) and IR drains-Continue NGT- F/U INR this amInterval History: Duodenal mass and obstructive jaundices/p perc drain placement.-plan is for ERCP with possible duodenal stent placementPresent Diet Order: NPONutritional Intake: 0-25% estimated energy needs over the past 4 day(s)Dosing Weight: 87 kgResting Metabolic Rate: 1661Estimated kilocalorie needs: 3782-8289 kilocalories determined by 25-28 kcal/kgEstimated protein needs:113 - 130 grams determined by 1.3-1.5 g/kg DosingweightEstimated fluid needs: 2200 - 2400 milliliters based on 1 mL per kcalAdmission Weight: 87.4 kg (192 lb 9.6 oz)Current Weight: 87.4 kg (192 lb 9.6 oz)Body mass index is 29.28 kg/(m2). overweightALLERGIESNo Known AllergiesCurrent Facility-Administered Medications:phenol 1 [place] (CHLORASEPTIC) 1 [place] MUCOUS MEMBRANE (TOPICAL MOUTH AND THROAT) q2 H PRNpotassium phosphate 30 mmol in NaCl 0.9% 250 mL 30 mmol INTRAVENOUS ONCEdextrose 5% in NaCl 0.9% iv infusion 125 mL/hr INTRAVENOUS CONTINUOUSmetoprolol tartrate (short acting) 25 mg tab(s) (LOPRESSOR) 25 mg ORAL q 8 H0.9% NaCl 10 mL 10 mL INTRAVENOUS q 12 H0.9% NaCl 20 mL 20 mL INTRAVENOUS PRNacetaminophen 650 mg tab(s) (TYLENOL) 650 mg ORAL q 6 H PRNciprofloxacin 400 mg in D5W 200 mL (CIPRO) 400 mg INTRAVENOUS ONCEoxyCODONE IR 5 mg tab(s) (ROXICODONE) 5 mg ORAL q 4 H PRNiv contrast (radiology procedure) INTRAVENOUS DIRECTED PRNnitroglycerin sublingual 0.4 mg tab(s) (NITROQUICK) 0.4 mg SUBLINGUAL q 5 MINPRNdextrose 40 % 15 g (INSTA-GLUCOSE) 15 g ORAL PRNOrglucagon 1 mg injection (GLUCAGEN) 1 mg INTRAMUSCULAR PRNOrdextrose 50% in water 25 mL syringe 12.5 g INTRAVENOUS PRNinsulin lispro injection (rapid acting) (HumaLOG) SUBCUTANEOUS q 6 Haspirin, enteric coated 162 mg tab(s) (ASPIRIN, ENTERIC COATED) 162 mg ORALDAILYHYDROmorphone 0.2 mg injection (DILAUDID) 0.2 mg INTRAVENOUS q 2 H PRNIntake/Output 08/13/17 0700 - 08/14/17 0659 08/14/17 0700 - 08/15/17 0659 08/15/17 0700 -08/16/17 0659 08/16/17 0700 - 08/17/17 0659 Intake (ml) 427 2119 3079 2570.4 Output (ml) 1190 2555 2640 1995 Net (ml) -763 -436 439 575.4Surgical Incision 08/14/17 0103 Abdomen - Laparoscopy Sites (Active)Dressing Status None: Open to Air 08/16/2017 10:06 PMIncision Closures Topical Skin Adhesive 08/16/2017 10:06 PMDrainage Description None 08/16/2017 10:06 PMDrainage Amount None 08/16/2017 10:06 PMEdges Intact 08/16/2017 10:06 PMHematoma No 08/16/2017 10:06 PMNumber of days:3MNT Billing Type: Re-assess/15 min 4 unitsSIGNATURE: Alise Lopez RD, LD PATIENT NAME: Rocio VizcarraTE: August 17, 2017 : 10:20 AM PAGER: For further assistance and weekends please page the GroupPager [phone] R Bolla, MD 08/18/2017 10:29 PM SignedPROGRESS NOTE CARDIOLOGY SERVICESERVICE DATE: August 17, 2017SERVICE TIME: 12:48 PMASSESSMENT/PLANActive Problems:Atrial fibrillation. Persistent AF, ventricular rates +/- 100Heparin infusion is off. Inr was elevated, received vitamin K prior toprocedure. Today 1.0.s/p ERCP yesterdayPlan:Continue metoprolol.Spoke to surgical [employer] Boubacar Espinoza. ->kimberley is for PTHC tomorrow.Will consider AC after procedure. ?Duodenal mass and obstructive jaundices/p perc drain placement.-s/p ERCP yesterday s/p dilatation. For stent placement tomorrow.As aboveContinue monitorThank you very much for allowing me to participate in this patient's care.Jessee Mayorga, MDSUBJECTIVEINTERIM HISTORY: No chest pain or dyspnea. No palpitations or dizziness.Telemetry AF 90s-100s. BP stable.OBJECTIVEPHYSICAL EXAM:BP 141/90 Pulse 109 Temp (Src) 98.6 (Oral) Resp 19 Ht 5' 8 (1.73m) Wt192 lb (87.1kg) SpO2 94% BMI 29.20 kg/(m2).Pleasant, comfortable, not in acute distress.Awake, alert, oriented times 3.Moves all extremities.NECK: Supple, no JV.LUNGS: Clear to auscultation bilaterally.CARDIAC: PMI present, irregular, S1 and S2, no S3 or S4, no additional heartsounds or murmurs.ABDOMEN: Soft, nontender, bowel sounds present.EXTREMITIES: No edema.PULSES: Peripheral pulses present.MEDICATIONS:Current Facility-Administered Medications:phenol 1 [place] (CHLORASEPTIC) 1 [place] MUCOUS MEMBRANE (TOPICAL MOUTH AND THROAT) q2 H PRNpotassium phosphate 30 mmol in NaCl 0.9% 250 mL 30 mmol INTRAVENOUS ONCEdextrose 5% in NaCl 0.9% iv infusion 125 mL/hr INTRAVENOUS CONTINUOUSmetoprolol tartrate (short acting) 25 mg tab(s) (LOPRESSOR) 25 mg ORAL q 8 H0.9% NaCl 10 mL 10 mL INTRAVENOUS q 12 H0.9% NaCl 20 mL 20 mL INTRAVENOUS PRNacetaminophen 650 mg tab(s) (TYLENOL) 650 mg ORAL q 6 H PRNoxyCODONE IR 5 mg tab(s) (ROXICODONE) 5 mg ORAL q 4 H PRNiv contrast (radiology procedure) INTRAVENOUS DIRECTED PRNnitroglycerin sublingual 0.4 mg tab(s) (NITROQUICK) 0.4 mg SUBLINGUAL q 5 MINPRNdextrose 40 % 15 g (INSTA-GLUCOSE) 15 g ORAL PRNOrglucagon 1 mg injection (GLUCAGEN) 1 mg INTRAMUSCULAR PRNOrdextrose 50% in water 25 mL syringe 12.5 g INTRAVENOUS PRNinsulin lispro injection (rapid acting) (HumaLOG) SUBCUTANEOUS q 6 Haspirin, enteric coated 162 mg tab(s) (ASPIRIN, ENTERIC COATED) 162 mg ORALDAILYHYDROmorphone 0.2 mg injection (DILAUDID) 0.2 mg INTRAVENOUS q 2 H PRNDATA:Diagnostic tests reviewed for today's visit:Most recent labs and imaging results.Most recent EKGTelemetryPast 72 Hour Labs:CBC, Coags, BMP, Mg, PhosRecent Labs 5 3 08/16/1805105WBC 4.87 -- 7.02 11.42* 12.79*HB 8.6* -- 9.1* 9.8* 9.7*HCT 26.6* -- 27.4* 29.9* 29.3*PLT 310 -- 319 335 302INR -- 1.0 -- 2.0* 2.0*APTT -- -- -- -- 39.8*NA 148* -- 148* -- --K 3.9 -- 3.2* -- --CHLOR 112* -- 110 -- --CO2 28 -- 26 -- --BUN 13 -- 14 -- --CREAT 0.71 -- 0.68* -- --GLUC 160* -- 158* -- --CA 7.2* -- 8.2* -- --MG 2.1 -- 2.4 2.3 --P 2.2* -- 2.3* 2.1* --Liver Function, Amylase, AND LipaseRecent Labs 08/17/1803TPROT 5.5* 6.1ALB 2.3* 2.5*ALT 66* 90*AST 32 36ALKPHOS 261* 304*TBILI 0.9 1.1Cardiac EnzymesSIGNATURE: Sabrina Arango CNP PATIENT NAME: Rocio VizcarraTE: August 17, 2017 : 12:48 PM PAGER/CONTACT #:Previous Bartolome Tomas RN, RN 08/17/2017 2:14 PM SignedCARE MANAGEMENT: ASSESSMENT AND DISCHARGE PLANSERVICE DATE: 08/17/2017SERVICE TIME: 2:11 PMPRIMARY CARE PHYSICIAN:No primary care provider on file.Phone: NoneADMISSION STATUS: InpatientPOTENTIAL DISCHARGE PLANSTo Be DeterminedPatient/Representa tive Stated Goals: I am having a test this afternoon.Needs Prior to Discharge: To Be DeterminedHealth Insurance: [facility]ving Arrangement: HomeLives With: 2 adult childrenFinancial Resources: N/APrimary Contact:Extended Emergency Contact InformationPrimary Emergency Contact: Owen Muller: [place], [place] [address]Yctz Ltwrfyur: SiblingSupportive: YesOther Important Patient Contacts: NoneCAREGIVER ASSESSMENT:Caregiver is ready, willing and able to meet the patient's needs as recommendedby the inter-professional team? TBDPatient's transition needs and plan for meeting these needs: TBDDoes the patient have an acute stroke diagnosis, or has the patient had a strokeduring this admission? NoADVANCE DIRECTIVES:Does Patient Have Advance Directives? No, copies givenDoes Patient Have Concerns About Advance Directives? NoPRIOR TO ADMISSION:Baseline Mental Status: Alert AND Oriented, Person, Place , Time and SituationFunctional Status: IndependentDoes Patient Currently Receive Any Community Services or Home Care? NoneEquipment Prior to Admission: NoneHEALTH:Health Issues Impacting Discharge Plan: post opHealth Literacy Issues: NoPSYCHOSOCIAL:Is the Patient Psychosocially Complex? NoFamily/Patient Understanding of Illness/Diagnosis: yesMedication Adherence:Do you forget to take your medications? I do not forget to take my medicationHave you ever stopped taking medications because you felt worse? None of thetimeHave you ever taken less of your medication than what was prescribed byyour doctor? None of the timeIn the past 3 months, have you had issues obtaining one or more of yourmedications? None of the timeAre you interested in bedside delivery of your medications? NoFood Concerns:In the Last Month, Have You had Trouble Getting Food? No trouble getting foodDuring the Last Month, Have You Worried Whether Your Food Would Run Out BeforeYou Had Enough Money to Buy More? NoPsychosocial Needs: NoneUTILIZATION:Last Admission Date: noneIs this Within the Past 30 days? NoHas the Patient Been in a Fdc Facility in the Past 30 days? NoFREEDOM OF CHOICE EXPLAINED:N/RUDY COMMUNICATION:Poncho CM met with pt at bedside for assessment.His 2 sisters are visiting. Pt granted permission to speak with his sisterspresent.Pt is 62 year old male with near-obstructing duodenal mass and obstructivejaundice, bile leak after recent cholecystectomy, Hospital course remarkable fora-fib, cardiology on consult?-Continue surgical (ROMINA) and IR drains-Continue NGT- Cardio consulted for new onset A fib- F/U recs-Pip/tazo-ERCP today (will need to confirm for stent placement)Pt was independent prior to admission.CM remains available to assist if skilled dc needs arise.SIGNATURE: Alexandrea Tomas RN PATIENT NAME: Rocio JacksonDATE: August 17, 2017 : 2:07 PM PAGER/CONTACT #: [phone] Zelin, MD 08/17/2017 3:21 PM SignedREGIONAL ANESTHESIOLOGY DAY OF SURGERY NOTEPATIENT NAME: Rocio JacksonMRN: [id number]: 1955Procedure(s) (LRB):ERCP (N/A)Surgeon(s):Srinath NavaEstimated body mass index is 29.19 kg/(m2) as calculated from the following: Height as of this encounter: 172.7 cm (5' 8 ). Weight as of this encounter: 87.1 kg (192 lb).ASA Class: 3Adequate NPO status: YesAllergies:ALLERGIESNo Known AllergiesAirway Assessment: MP 2; Neck ROM: Full ROM without neurologic symptoms; AirwayEvaluation: Jean PresentDentition: Poor dentitionMissing tooth upper left and upper rightSymptoms of Sleep Apnea: DeniesMost recent lab results:Hemoglobin 9.1 08/17/2017Hematocrit 27.4 08/17/2017Potassium 3.2 08/17/2017Platelet Count 319 08/17/2017PT Sec 10.6 08/17/2017APTT 39.8 08/15/2017PT INR 1.0 08/17/2017Creatinine 0.68 08/17/2017EKG:atrial fibrillation, rate 100sVitals: 810 900 159 BP: 128/77 141/90 128/84Pulse: 100 109 101Resp: 16Temp: 37.1 ?C (98.8 ?F) 37 ?C (98.6 ?F)TempSrc: Oral OralSpO2: 94% 94% 94% 96%Weight: 87.1 kg (192 lb)Height: 172.7 cm (5' 8 )Previous Anesthesia: No history of adverse event Family history of anestheticproblems: NoneAdditional Physical Exam:Lungs: Lungs clear to auscultation. Good diaphragmatic excursion.Cardiac: Normal S1 and S2; no rubs, no murmurs and no gallopsAdditional pertinent findings: N/AOther Medical Problems/ Important Considerations:Denies chest pain and SOB with exertion.Denies GERD.Chronic Beta Juni medication administered within 24 hours: YesAnesthetic risks, benefits, alternatives, personnel and consent discussed: YesPatient agrees to proceed: YesBlood Products: Not anticipated for this procedureAnesthetic Plan: General ETT; Standard ASA MonitorsPain Management Plan: Parenteral or OralEPIC Chart ReviewACTIVE PROBLEM LISTDuodenal ObstructionSevere Protein-Calorie Malnutrition (Hcc)PAST MEDICAL HISTORYDiagnosis Date- Bleeding ulcer 11/15/2016 required 5 blood transfusions- Diabetes mellitus (HCC) 2017- Glaucoma- Hypertension- Myocardial infarction 05/15/2011PAST SURGICAL HISTORYProcedure Laterality Date- ANGIOPLASTY HX 05/15/2011 2 stents s/p MD;[facility]- CHOLECYSTECTOMY 08/11/2017 [facility]- PICC LINE INSERT/CONSULT 08/16/2017No family history on file.Social History:Social HistorySubstance Use Topics- Smoking status: Former Smoker Types: Cigarettes Quit date: 2010- Smokeless tobacco: Never Used- Alcohol use 1.5 oz/week 1 Cans of Beer (12oz) per week Comment: occasional beerNo current facility-administered medications on file prior to encounter.No current outpatient prescriptions on file prior to encounter.[facility]patient [facility] reviewed in [facility].I have interviewed and examined the patient. I have reviewed the medical recordand/or the pre-anesthesia evaluation, pertinent labs, and test results.Significant changes in the patient's condition since the History and Physical,not otherwise documented in primary service progress notes: [facility] contains updated information obtained within 48 hours of Surgery/Procedure.SIGNATURE: Reba Valle MD PATIENT NAME: Rocio JacksonDATE: August 17, 2017 : 3:20 PM PAGER/CONTACT #:Srinath Nava MD 08/17/2017 3:20 PM SignedUPDATED HISTORY AND PHYSICAL EXAMINATIONSERVICE DATE: 08/17/2017SERVICE TIME: 3:20 PMPHYSICAL EXAM MUST BE COMPLETED ON ADMISSIONThe History and Physical (completed in the past 30 days) has been reviewed andthe patient has been examined. The contents accurately reflect the patient'scondition with the following additions or revisions since the HANDP was completed.Examination indicates no changes.This HANDP can be found in the Electronic Medical Record dated 08/13/2017 and GIconsult notes..SIGNATURE: Srinath Nava MD PATIENT NAME: Rocio JacksonDATE: August 17, 2017 : 3:20 PM PAGER:Srniath Nava MD 08/17/2017 5:07 PM SignedPlease see procedure report under procedure tabIMP:Duodenal mass, malignant with D2 stenosis involving area of papillaS/P dilation to 15mm balloonRecs:Clear liquid diet, may consider EGD assisted duodenal tube placement for feedingUnable to cannulate due to sharp angulation, can have PTC with exchange tointernal endoscopicallyStsuzi Valle MD 08/17/2017 5:41 PM SignedPOST ANESTHESIA EVALUATION NOTESERVICE DATE: 08/17/2017SERVICE TIME: 1741DOB: 1955Vitals: 08/17/1807Temp: 37 ?C (98.6 ?F) 37.1 ?C (98.8 ?F) 37 ?C (98.6 ?F) 36.9 ?C (98.4 ?F) 08/17/1813BP: 141/90 128/84 124/86 113/79 08/17/1813Pulse: 109 101 92 115 08/17/1813Resp: 19 16 14 20 08/17/1813SpO2: 94% 96% 100% 100%Validated Vital Signs: YesPOST ANES STATUS: No apparent anesthetic complications. The patient isappropriately hydrated with stable respiratory and cardiovascular status.Patient has safe and adequate airway control. The patient has appropriate painrelief and no significant post operative nausea or vomiting. The patient hasachieved baseline mental status.Further assessment by Anesthesia Service: NoneOther Remarks:SIGNATURE: Reba Valle MD PATIENT NAME: Rocio JacksonDATE: August 17, 2017 : 5:41 PM PAGER/CONTACT #:Khadar Duffy MD 08/18/2017 6:11 PM AddendumPROGRESS NOTES - SURGICAL SERVICESPATIENT NAME: Rocio JacksonMRN: [id number] HISTORY OF PRESENT ILLNESS:No acute events overnight. Pain well controlled. No nausea or vomiting.PHYSICAL EXAM:BP 117/77 Pulse 100 Temp 36.9 ?C (98.4 ?F) (Oral) Resp 18 Ht 172.7 cm(5' 8 ) Wt 87.1 kg (192 lb) SpO2 96% BMI 29.19 kg/m2Body mass index is 29.19 kg/(m2).GENERAL: Alert and oriented, no acute distress, cooperative.CARDIAC: regular rate and rythmLUNGS: Non labored breathingABDOMEN: soft, non tender, non distended.CBC, Coags, BMP, Mg, PhosRecent Labs 08/17/1807WBC 4.87 -- 7.02 11.42* 12.79*HB 8.6* -- 9.1* 9.8* 9.7*HCT 26.6* -- 27.4* 29.9* 29.3*PLT 310 -- 319 335 302INR -- 1.0 -- 2.0* 2.0*APTT -- -- -- -- 39.8*NA 148* -- 148* -- --K 3.9 -- 3.2* -- --CHLOR 112* -- 110 -- --CO2 28 -- 26 -- --BUN 13 -- 14 -- --CREAT 0.71 -- 0.68* -- --GLUC 160* -- 158* -- --CA 7.2* -- 8.2* -- --MG 2.1 -- 2.4 2.3 --P 2.2* -- 2.3* 2.1* --Liver Function, Amylase, AND LipaseRecent Labs 08/17/1803TPROT 5.5* 6.1ALB 2.3* 2.5*ALT 66* 90*AST 32 36ALKPHOS 261* 304*TBILI 0.9 1.1Intake/Output Summary (Last 24 hours) at 08/18/17 0751Last data filed at 08/18/17 0546 Gross per 24 hourIntake 1953 mlOutput 2540 mlNet -587 mlSURGERY/PROCEDURE:Procedur e(s) and Anesthesia Type: * ERCP - GeneralASSESSMENT AND PLAN:62 year old male with 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 Hospital course remarkable for a-fib, cardiology onconsult.-Continue surgical (ROMINA) and IR drains-Will advance to [facility]- F/U INR this am- Appreciate cards recs-Pain control-Will attempt to obtain OSH biopsy results-VTE Prophylaxis: SCDs-Routine surgical care: EVERETT RODRIGUEZ MD (Res)General SurgeryPager: [phone]*On weekends or nights (after 1800) please contact the surgery web services professional pager.*Attending: ERCP results noted. Unable to cannulate CBD; duodenum dilated.Results discussed frankly with pt and family, including this being cancer(unless proven otherwise) in a difficult location, needing an extensive surgeryto resect.Preop optimization needed, including control of biliary leak (PTC tomorrow) andgood nutrition (likely corpak placed via EGD). Need for home care of thesetubes discussed. They appeared to understand.Khadar Duffy MDFebruary 2017 6:11 PMPrevious VersionLinda Avalos, DIVIDEND DEPOSIT VOUCHER CLERK 08/18/2017 1:23 PM SignedCONSULT PROGRESS NOTESERVICE DATE: 08/18/2017SERVICE TIME: 1:20 PMCONSULTING SERVICE: GISubjectiveINTERVAL HPI: No acute events overnight. 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 - dilated.Current hospital medications:insulin lispro injection (rapid acting) (HumaLOG) SUBCUTANEOUS w MEALS AND HSphenol 1 [place] (CHLORASEPTIC) 1 [place] MUCOUS MEMBRANE (TOPICAL MOUTH AND THROAT) q2 H PRNdextrose 5% in NaCl 0.9% iv infusion 125 mL/hr INTRAVENOUS CONTINUOUSmetoprolol tartrate (short acting) 25 mg tab(s) (LOPRESSOR) 25 mg ORAL q 8 H0.9% NaCl 10 mL 10 mL INTRAVENOUS q 12 H0.9% NaCl 20 mL 20 mL INTRAVENOUS PRNacetaminophen 650 mg tab(s) (TYLENOL) 650 mg ORAL q 6 H PRNoxyCODONE IR 5 mg tab(s) (ROXICODONE) 5 mg ORAL q 4 H PRNiv contrast (radiology procedure) INTRAVENOUS DIRECTED PRNnitroglycerin sublingual 0.4 mg tab(s) (NITROQUICK) 0.4 mg SUBLINGUAL q 5 MINPRNdextrose 40 % 15 g (INSTA-GLUCOSE) 15 g ORAL PRNglucagon 1 mg injection (GLUCAGEN) 1 mg INTRAMUSCULAR PRNdextrose 50% in water 25 mL syringe 12.5 g INTRAVENOUS PRNaspirin, enteric coated 162 mg tab(s) (ASPIRIN, ENTERIC COATED) 162 mg ORALDAILYHYDROmorphone 0.2 mg injection (DILAUDID) 0.2 mg INTRAVENOUS q 2 H PRNObjectivePHYSICAL EXAM:Physical Exam Performed:GENERAL: Alert, CooperativeABDOMEN: Abdomen soft, non-tender, BS normal, No masses or organomegalyBP 113/68 Pulse 92 Temp (Src) 98.9 (Oral) Resp 16 Ht 5' 8 (1.73m) Wt192 lb (87.1kg) SpO2 97% BMI 29.20 kg/(m2).DATA:Diagnostic tests reviewed for today's visit:Most recent labs and imaging results.Impression/Recommend ationsMrDary Jackson is a 62 year old male with a history notable for PAFib not onanticoag as outpt, CAD s/p PCI x2 2013, type 2 DM on metformin, HTN, glaucoma.He underwent lap richelle for ?cholecystitis at OSH on 08/11 which was c/b bileleak. Attempt at OSH ERCP showed an ulcerated mass in junction of D1/D2, novisualization of ampulla; bx pending of duodenal mass. IR drainage of bilomascompleted.?S/p EGD/ERCP yesterday - noted duodenal mass, malignant with D2 stenosisinvolving area of papilla - dilated.Plan:-for PTC today-Will consider EGD-assisted duodenal tube placement for feeding-continue to followMónica WeberBagley Medical Center GastroenterologyThank you for allowing us to participate in the care of this patient. Pleasecall with questions or concerns.SIGNATURE: Linda Avalos CNP PATIENT NAME: Rocio JacksonDATE: August 18, 2017 : 1:20 PM PAGER: [phone] Barsa, RD, LD 08/18/2017 1:39 PM SignedNUTRITION THERAPY PROGRESS NOTESERVICE DATE: 08/18/2017SERVICE TIME: 1:24 PMRECOMMENDED DIAGNOSIS: SEVERE PROTEIN-CALORIE MALNUTRITION per RegisteredDietitian on 08/14NUTRITION CARE PLANIntervention:Diet NPOAdvance to clearsMonitor and Evaluation:Goal: Meet >75% of estimated needsMonitor fluid/electrolyte balanceMonitor labs, I/Os, vital signs, weightDischarge Nutrition Recommendations:To be [id number] year old male with a history notable for PAFib not on anticoag as outpt,?CADs/p PCI?x2 2013, type 2 DM on metformin, HTN, glaucoma. He underwent lap cholefor ?cholecystitis at OSH on 08/11 which was c/b bile leak. Attempt at OSH ERCPshowed?an?ulcerated mass in junction of D1/D2, no visualization of ampulla; bxpending of duodenal mass. IR drainage of bilomas completed.??S/p EGD/ERCP yesterday - noted duodenal mass, malignant with D2 stenosisinvolving area of papilla - dilated.?Plan:-for PTC today-Will consider EGD-assisted duodenal tube placement for feeding-continue to followAdmission Weight: 87.4 kg (192 lb 9.6 oz)Current Weight: 87.1 kg (192 lb)Body mass index is 29.19 kg/(m2). overweightALLERGIESNo Known AllergiesCurrent Facility-Administered Medications:insulin lispro injection (rapid acting) (HumaLOG) SUBCUTANEOUS w MEALS AND HSphenol 1 [place] (CHLORASEPTIC) 1 [place] MUCOUS MEMBRANE (TOPICAL MOUTH AND THROAT) q2 H PRNdextrose 5% in NaCl 0.9% iv infusion 125 mL/hr INTRAVENOUS CONTINUOUSmetoprolol tartrate (short acting) 25 mg tab(s) (LOPRESSOR) 25 mg ORAL q 8 H0.9% NaCl 10 mL 10 mL INTRAVENOUS q 12 H0.9% NaCl 20 mL 20 mL INTRAVENOUS PRNacetaminophen 650 mg tab(s) (TYLENOL) 650 mg ORAL q 6 H PRNoxyCODONE IR 5 mg tab(s) (ROXICODONE) 5 mg ORAL q 4 H PRNiv contrast (radiology procedure) INTRAVENOUS DIRECTED PRNnitroglycerin sublingual 0.4 mg tab(s) (NITROQUICK) 0.4 mg SUBLINGUAL q 5 MINPRNdextrose 40 % 15 g (INSTA-GLUCOSE) 15 g ORAL PRNOrglucagon 1 mg injection (GLUCAGEN) 1 mg INTRAMUSCULAR PRNOrdextrose 50% in water 25 mL syringe 12.5 g INTRAVENOUS PRNaspirin, enteric coated 162 mg tab(s) (ASPIRIN, ENTERIC COATED) 162 mg ORALDAILYHYDROmorphone 0.2 mg injection (DILAUDID) 0.2 mg INTRAVENOUS q 2 H PRNIntake/Output 08/14/17 0700 - 08/15/17 0659 08/15/17 0700 - 08/16/17 0659 08/16/17 0700 -08/17/17 0659 08/17/17 0700 - 08/18/17 0659 08/18/17 0700 - 08/19/17 0659 Intake (ml) 2119 3079 2570.4 1953 485 Output (ml) 2555 2640 1995 2540 775 Net (ml) -436 439 575.4 -587 -290Surgical Incision 08/14/17 0103 Abdomen - Laparoscopy Sites (Active)Dressing Status None: Open to Air 08/18/2017 9:30 AMIncision Closures Topical Skin Adhesive 08/18/2017 9:30 AMDrainage Description None 08/18/2017 9:30 AMDrainage Amount None 08/18/2017 9:30 AMEdges Intact 08/18/2017 9:30 AMHematoma No 08/18/2017 9:30 AMNumber of days:4MNT Billing Type: Re-assess/15 min 3 unitsSIGNATURE: Alise Lopez RD, LD PATIENT NAME: Rocio FrischDATE: August 18, 2017 : 1:24 PM PAGER: For further assistance and weekends please page the GroupPager -[phone] Berardi, RN, RN 08/18/2017 2:30 PM SignedMULTIDISCIPLINARY ROUNDSSERVICE DATE: 08/18/2017 ADMISSION DATE: 08/13/2017SERVICE TIME: 2:27 PM ANTICIPATED D/C DATE: 1-3 daysProblem List:ACTIVE PROBLEM LISTDuodenal ObstructionSevere Protein-Calorie Malnutrition (Hcc)Attendees Present at Rounds:Cement Patcher: Roderick Nurse: Laura Discussed on Rounds:Discharge NeedsPlan of CareCM following for potential skilled dc needs.Anticipated Discharge Disposition:Home/Self CarePt had ERCP,Continue surgical (ROMINA) and IR drains, Biliary drainLast Vitals: BP 113/68 Pulse 92 Temp (Src) 98.9 (Oral) Resp 16 Ht 5' 8 (1.73m) Wt 192 lb (87.1kg) SpO2 97% BMI 29.20 kg/(m2).Nursing:Anxiety Intervention(s) Plan: Assess for Signs/Symptom of EscalatingAnxiety;Provide Quiet and Restful EnvironmentAnxiety Goals/Outcomes: Patient Verbalizes/Demonstrates DecreasedAnxietyFluid/Electr olyte Intervention(s) Plan: Assess for Signs/Symptom ofDehydration and Fluid Overload;Daily Weights;Monitor Lab Values;Monitor PatientVital Signs and Intake and Output;Notify LIP for Changes to BaselineStatus;Review Current Medication and Medication History and AdministerMedications as Ordered;Report Changes in Patient's ConditionFluid/Electrolyte Goals/Outcomes: Appropriate Fluid and Electrolyte BalanceAchieved and Maintained;Exhibits Increased Interest and Assume Responsibilityfor Patient's Own/Family Learning by Beginning to Look for Information and AskQuestionsFluid/Electrolyt e Goal Target Achievement Date: (S) 08/20/17Pain Intervention(s) Plan: Pain Assessment, Management, Reassessment Per ScoringTool;Provide Quiet and Restful EnvironmentPain Goals/Outcomes: Decrease in Pain Level per Scoring Tool;Exhibits IncreasedInterest and Assume Responsibility for Patient's Own/Family Learning byBeginning to Look for Information and Ask QuestionsPain Goal Target Achievement Date: 08/17/17DOCUMENTED BY: Alexandrea Tomas RN PATIENT NAME: Rocio TorresChhaya: August 18, 2017 : 2:27 PM CSN: [id number] Webster RN, RN 08/19/2017 3:24 AM Signed Nursing Progress NotePatient Name: Rocio JacksonPETRONA: [id number] Location: [place] [id number] ____ Pt with mild abd pain of 3 or less tonight. Tylenol controlling. Pt aware ifneeded may have pain pills. Accordian drain flushed at 2100 per order forpositive return of sterile NS and brown liquid.This note was completed by: Vipul Das RN, RN 08/19/2017 11:47 AM SignedPATIENT EDUCATION TOPIC: PROCEDURE / SURGERY: Procedure/Surgery: PTHCPATIENT NAME: Rocio Boudreaux: [id number] LOCATION: [place] [id number] S TO LEARNCOGNITIVE ABILITY: Alert and orientedMOTIVATION TO LEARN: EagerInterestedFAMILY SUPPORT: Unable to assess - Family not presentINSTRUCTION PROVIDED TO: PatientPATIENT LEARNS BEST BY: Individual InstructionWritten Instruction - Hand-outsVerbal InstructionFACTORS AFFECTING LEARNING: NonePHYSICAL LIMITATIONS AFFECTING LEARNING: NoneLEARNING RESPONSEDIAGNOSIS: ADULT: Duodenal massPATIENT/FAMILY RESPONSE: Verbalizes understanding of: [id number] orrect actions to take to reduce post procedure complicationsPRE-PROCEDURE INSTRUCTIONS-Correct action to take to follow pre-procedureinstructionsMET HOD OF INSTRUCTION: Individual instructionWritten instruction - handoutsVerbal instructionFOLLOW-UP PLAN: Follow-up with Primary CareINSTRUCTIONAL AIDS USED: NASUPPLEMENTAL MATERIAL PROVIDED TO PATIENT: NoneREFERRAL (RECOMMENDATION): NoneElectronically Signed By: Leidy Nguyen MD 08/19/2017 12:47 PM SignedUPDATED PROCEDURAL SEDATION HISTORY AND PHYSICAL EXAMINATIONSERVICE DATE: 08/19/2017SERVICE TIME: 12:47 PMPHYSICAL EXAM MUST BE COMPLETED ON ADMISSIONThe History and Physical (completed in the past 30 days) has been reviewed andthe patient has been examined. The contents accurately reflect the patient'scondition with the following additions or revisions since the HANDP was completed.ASA Class: ASA Class:: Patient with severe systemic diseaseExamination indicates no changes.AIRWAY: Airway Visualization of Uvula: YesMouth opening greater than 2 fingerbreadths: YesNeck Full Range of Motion: YesLUNGS: Lungs clear to auscultation, Good diaphragmatic excursionCARDIAC: Normal S1 and S2; no rubs, murmurs, or gallopsProvisional Diagnosis/Treatment Plan: [facility] wGeneral AnesthesiaThis HANDP can be found in the attached.SIGNATURE: Vanessa Garcia MD PATIENT NAME: Rocio TorresschDATE: August 19, 2017 : 12:47 PM PAGER: [phone] CARLOS Lopez, LD 08/19/2017 2:22 PM SignedNUTRITION THERAPY REASSESSMENTSERVICE DATE: 08/19/2017SERVICE TIME: ,nowRECOMMENDED MALNUTRITION DIAGNOSIS: SEVERE PROTEIN-CALORIE MALNUTRITIONIn the context of Acute Illness or Injury based on:Unintentional Weight Loss: >5% over 1 monthInsufficient Energy Intake: less than or equal to 50% for greater than or equalto 5 daysSubcutaneous Fat Loss: Moderate LossMuscle Loss Moderate LossNUTRITION CARE PLAN:Problem, Etiology and Signs/Symptoms:Suboptimal oral intake related to altered GI function as evidenced by poor pointake, wt loss, N/V and NPO x 7 daysIntervention:NPO - IV fluids D5 LR 125 ml hr = 510 kcal from dextroseIf enteral nutrition - Recommend Nutren 1.5 goal rate 60 ml hr = 2160 kcal and98 gm proteinWater flushes - 250 ml 4 times per dayStart up slowly due to high risk for refeeding syndrome with NPO status x 7 daysand previous poor intake prior to admit - Pt with electrolytes of K and phos lowwith need for repletion before enteral nutrition to beginK phos bolus orderedRecheck levelMonitor and Evaluation:Goal: Meet >75% of estimated needsMonitor fluid/electrolyte balanceMonitor labs, I/Os, vital signs, weightDischarge Nutrition Recommendations:To be determinedPer HPI: 62 year old male with a history notable for PAFib not on anticoag asoutpt,?CAD s/p PCI?x2 2013, type 2 DM on metformin, HTN, glaucoma. He underwentlap richelle for ?cholecystitis at OSH on 08/11 which was c/b bile leak. Attempt atOSH ERCP showed?an?ulcerated mass in junction of D1/D2, no visualization ofampulla; bx pending of duodenal mass. IR drainage of bilomas completed.??S/p EGD/ERCP yesterday - noted duodenal mass, malignant with D2 stenosisinvolving area of papilla - dilatedInterval History: Duodenal mass and obstructive jaundices/p perc drain placement.-s/p ERCP yesterday s/p dilatation. For stent placementlikely corpak placed via EGDPresent Diet Order: NPONutritional Intake: 0-25% estimated energy needs over the past 7 day(s)GI symptoms: anorexia and abdominal painAbdominal Exam: abdomen is soft and bowel sounds are normalIs the patient having any pain that is interfering with oral/enteral intake? YesLOCATION: abdomenANTHROPOMETRICSHeight : 172.7 cm (5' 8 )Admission Weight: 87.4 kg (192 lb 9.6 oz)Current Weight: 87.1 kg (192 lb)Body mass index is 29.19 kg/(m2). overweightWt loss noted from 205-192#Weight has decreased by 13# over 2 weeks representing 6.3 % weight changeLast Wt08/17/17 : 87.1 kg (192 lb)Dosing Weight: 87 kgResting Metabolic Rate: 1661Estimated kilocalorie needs: 3408-2657 kilocalories determined by 25-28 kcal/kgEstimated protein needs:113 - 130 grams determined by 1.3-1.5 g/kg DosingweightEstimated fluid needs: 2200 - 2400 milliliters based on 1 mL per kcalNUTRITION FOCUSED PHYSICAL EXAM:Subcutaneous Fat LossOrbital ModerateTriceps ModerateMid-axillary at the iliac crest Unable to determine at this timeMuscle Loss Locations:Temporalis ModeratePectoralis ModerateDeltoids ModerateInterosseous ModerateLatissimus dorsi, trapezius Unable to determine at this timeQuadriceps ModerateGastrocnemius Unable to determine at this timePotential micronutrient deficiency revealed in: No deficiency identifiedEdema: NoAscites: NoAssessment of Functional Status: Unable to determine at this timeTemperature Max in 24 hours: Temp (24hrs), Av.1 ?C (98.7 ?F), Min:36.8 ?C(98.2 ?F), Max:37.4 ?C (99.4 ?F) BP 123/79 Pulse 92 Temp 36.9 ?C (98.5 ?F) (Oral) Resp 16 Ht 172.7 cm(5' 8 ) Wt 87.1 kg (192 lb) SpO2 98% BMI 29.19 kg/p3Uhaoti [facility] GLUC 144*BUN 7*CREAT 0.58*NA 142K 3.4*CHLOR 108CO2 23ALB 2.5*HB 8.8*HCT 27.7*WBC 6.57P 1.9*MG 2.2Potential Signs of Inflammation: hyperglycemia, hypoalbuminemia and imagingstudiesALLERGIESNo Known AllergiesCurrent Facility-Administered Medications:0.9% NaCl 2-10 mL 2-10 mL INTRAVENOUS q 12 Hpiperacillin-tazobactam 3.375 g in dextrose (iso-osmotic) 50 mL (ZOSYN) 3.375 gINTRAVENOUS ONCEpotassium phosphate 30 mmol in NaCl 0.9% 250 mL 30 mmol INTRAVENOUS ONCEinsulin lispro injection (rapid acting) (HumaLOG) SUBCUTANEOUS w MEALS AND HSdextrose 5% in LR infusion (D5-LR) 125 mL/hr INTRAVENOUS CONTINUOUSheparin 5,000 Units injection 5,000 Units SUBCUTANEOUS q 8 Hphenol 1 [place] (CHLORASEPTIC) 1 [place] MUCOUS MEMBRANE (TOPICAL MOUTH AND THROAT) q2 H PRNmetoprolol tartrate (short acting) 25 mg tab(s) (LOPRESSOR) 25 mg ORAL q 8 H0.9% NaCl 10 mL 10 mL INTRAVENOUS q 12 H0.9% NaCl 20 mL 20 mL INTRAVENOUS PRNacetaminophen 650 mg tab(s) (TYLENOL) 650 mg ORAL q 6 H PRNoxyCODONE IR 5 mg tab(s) (ROXICODONE) 5 mg ORAL q 4 H PRNiv contrast (radiology procedure) INTRAVENOUS DIRECTED PRNnitroglycerin sublingual 0.4 mg tab(s) (NITROQUICK) 0.4 mg SUBLINGUAL q 5 MINPRNdextrose 40 % 15 g (INSTA-GLUCOSE) 15 g ORAL PRNOrglucagon 1 mg injection (GLUCAGEN) 1 mg INTRAMUSCULAR PRNOrdextrose 50% in water 25 mL syringe 12.5 g INTRAVENOUS PRNaspirin, enteric coated 162 mg tab(s) (ASPIRIN, ENTERIC COATED) 162 mg ORALDAILYHYDROmorphone 0.2 mg injection (DILAUDID) 0.2 mg INTRAVENOUS q 2 H PRNIntake/Output 08/15/17 0700 - 08/16/17 0659 08/16/17 0700 - 08/17/17 0659 08/17/17 0700 -08/18/17 0659 08/18/17 0700 - 08/19/17 0659 08/19/17 0700 - 08/20/17 0659 Intake (ml) 3079 2570.4 1953 3402 509 Output (ml) 2640 1995 2540 1256 175 Net (ml) 439 575.4 -587 2146 334Surgical Incision 08/14/17 0103 Abdomen - Laparoscopy Sites (Active)Dressing Status None: Open to Air 08/19/2017 9:20 AMIncision Closures Topical Skin Adhesive 08/19/2017 9:20 AMDrainage Description None 08/19/2017 9:20 AMDrainage Amount None 08/19/2017 9:20 AMEdges Intact 08/19/2017 9:20 AMHematoma No 08/19/2017 9:20 AMNumber of days:5MNT Billing Type: Re-assess/15 min 4 unitsSIGNATURE: Alise Lopez RD, LD PATIENT NAME: Rocio TorresdonnyDATE: August 19, 2017 : 2:05 PM PAGER: For further assistance and weekends please page the GroupPager -[phone] Tritle, MD 08/19/2017 2:57 PM SignedBRIEF OPERATIVE / PROCEDURE NOTESurgery/Procedure Date: 08/19/17Incision/Procedure Start Time:Incision Close/Procedure End Time:Surgeon(s)/Proceduralis t(s) and Principal Embedded Software Engineer(s):Dusty Garcia - PrimaryProcedure(s): R PTHC and Int/Ext biliary drainAnesthesia: GeneralFindings: Mildly dilated IH ducts. NO filling defects. Severe D2-3 strictureEstimated Blood Loss: MinimalSpecimens: NoneComplications: NonePre-Op/Pre-Procedure Diagnosis: Duodenal massPost-Op/Post-Procedure Diagnosis: SameSIGNATURE: Vanessa Garcia MD PATIENT NAME: Rocio TorresschDATE: August 19, 2017 : 2:56 PM PAGER/CONTACT #: [facility] Vital Signs Date Time Vital Sign Value Performing Clinician Facility 06-04-2023 13:30-0500 Body height 168.91 cm David Caputo Other [facility] Other 06-04-2023 13:30-0500 Body mass index (BMI) [Ratio] 20.67 kg/m2 David Captuo Other [facility] Other 06-04-2023 13:30-0500 Body weight 58.97 kg David Caputo Other [facility] Other 06-04-2023 13:30-0500 Diastolic blood pressure 63 mm[Hg] David Caputo Other [facility] Other 06-04-2023 13:30-0500 Systolic blood pressure 99 mm[Hg] David Caputo Other [facility] Other 04-09-2023 14:57-0400 Body height 170.8 cm Ma Sand Work Phone: [facility] 04-09-2023 14:57-0400 Body temperature 97.39 [degF] Ma Sand Work Phone: [facility] 04-09-2023 14:57-0400 Body weight 50.8 kg Ma Sand Work Phone: [facility] 04-09-2023 14:57-0400 Diastolic blood pressure 66 mm[Hg] Ma Sand Work Phone: [facility] 04-09-2023 14:57-0400 Heart rate 93 /min Ma Sand Work Phone: [facility] 04-09-2023 14:57-0400 Respiratory rate 16 /min Ma Sand Work Phone: [facility] 04-09-2023 14:57-0400 SaO2% (BldA) [Mass fraction] 97 % Ma Sand Work Phone: [facility] 04-09-2023 14:57-0400 Systolic blood pressure 108 mm[Hg] Lamont Hailey Work Phone: [facility] 03-11-2023 10:36-0400 Body height 170.8 cm Zahra Buitrago MD Work Phone: [facility] 03-11-2023 10:36-0400 Body temperature 97.39 [degF] Zahra Buitrago MD Work Phone: [facility] 03-11-2023 10:36-0400 Diastolic blood pressure 81 mm[Hg] Zahra Buitrago MD Work Phone: [facility] 03-11-2023 10:36-0400 Heart rate 83 /min Zahra Buitrago MD Work Phone: [facility] 03-11-2023 10:36-0400 Respiratory rate 18 /min Zahra Buitrago MD Work Phone: [facility] 03-11-2023 10:36-0400 SaO2% (BldA) [Mass fraction] 100 % Zahra Buitrago MD Work Phone: [facility] 03-11-2023 10:36-0400 Systolic blood pressure 118 mm[Hg] Zahra Buitrago MD Work Phone: [facility] 03-05-2023 14:30-0400 Body height 168.91 cm David Caputo Other [facility] Other 03-05-2023 14:30-0400 Body mass index (BMI) [Ratio] 20.67 kg/m2 David Caputo Other [facility] Other 03-05-2023 14:30-0400 Body weight 58.97 kg David Caputo Other [facility] Other 03-05-2023 14:30-0400 Diastolic blood pressure 66 mm[Hg] David Caputo Other [facility] [employer] Other 03-05-2023 14:30-0400 Systolic blood pressure 107 mm[Hg] David Caputo Other [employer] [facility] [employer] Other 02-19-2023 15:22-0400 Body temperature 97.5 [degF] Zahra Buitrago MD Work Phone: [facility] 02-19-2023 15:22-0400 Body weight 50.8 kg Zahra Buitrago MD Work Phone: [facility] 02-19-2023 15:22-0400 Diastolic blood pressure 63 mm[Hg] Zahra Buitrago MD Work Phone: [facility] 02-19-2023 15:22-0400 Heart rate 98 /min Zahra Buitrago MD Work Phone: [facility] 02-19-2023 15:22-0400 Respiratory rate 18 /min Zahra Buitrago MD Work Phone: [facility] 02-19-2023 15:22-0400 SaO2% (BldA) [Mass fraction] 97 % Zahra Buitrago MD Work Phone: [facility] 02-19-2023 15:22-0400 Systolic blood pressure 98 mm[Hg] Zahra Buitrago MD Work Phone: [facility] 02-12-2023 08:05-0400 PAIN LEVEL 0 {score} Dr. Adriane Mccoy [facility] 02-12-2023 04:59-0400 PAIN LEVEL 0 {score} Dr. Adriane Mccoy [facility] 02-12-2023 04:01-0400 Body temperature 98.8 [degF] Dr. Adriane Mccoy [facility] 02-12-2023 04:01-0400 Diastolic blood pressure 72 mm[Hg] Dr. Adriane Esp[facility] 02-12-2023 04:01-0400 Heart rate 87 /min Dr. Adriane Mccoy [facility] 02-12-2023 04:01-0400 Respiratory rate 17 /min Dr. Adriane Mccoy [facility] 02-12-2023 04:01-0400 Systolic blood pressure 114 mm[Hg] Dr. Adriane Espitia [facility] 02-11-2023 16:27-0400 Body temperature 98.5 [degF] Dr. Adriane Mccoy [facility] 02-11-2023 16:27-0400 Diastolic blood pressure 72 mm[Hg] Dr. Adriane Espitia [facility] 02-11-2023 16:27-0400 Heart rate 74 /min Dr. Adriane Mccoy [facility] 02-11-2023 16:27-0400 Respiratory rate 16 /[facility] 16:27-0400 Systolic blood pressure 113 mm[Hg] Dr. Adriane Espitia [facility] 02-11-2023 08:28-0400 PAIN LEVEL 0 {score} Dr. Adriane Mccoy [facility] 02-11-2023 05:16-0400 PAIN LEVEL 0 {score} Dr. Adriane Mccoy [facility] 02-11-2023 01:47-0400 Body temperature 98.2 [degF] Dr. Adriane Mccoy [facility] 02-11-2023 01:47-0400 Diastolic blood pressure 76 mm[Hg] Dr. Adriane Espitia [facility] 02-11-2023 01:47-0400 Heart rate 80 /min Dr. Adriane Mccoy [facility] 02-11-2023 01:47-0400 Respiratory rate 17 /min Dr. Adriane Mccoy [facility] 02-11-2023 01:47-0400 Systolic blood pressure 110 mm[Hg] Dr. Adriane Espitia [facility] 02-10-2023 16:22-0400 Body temperature 98.5 [degF] Dr. Adriane Mccoy [facility] 02-10-2023 16:22-0400 Diastolic blood pressure 73 mm[Hg] Dr. Adriane Espitia [facility] 02-10-2023 16:22-0400 Heart rate 73 /min Dr. Adriane Mccoy [facility] 02-10-2023 16:22-0400 Respiratory rate 20 /[facility]-10-[facility]23 16:22-0400 Systolic blood pressure 110 mm[Hg] Dr. Adriane Espitia [facility] 02-10-2023 08:58-0400 PAIN LEVEL 0 {score} Dr. Adriane Mccoy [facility] 02-10-2023 03:21-0400 Body temperature 98.5 [degF] Dr. Adriane Mccoy [facility] 02-10-2023 03:21-0400 Diastolic blood pressure 67 mm[Hg] Dr. Adriane Espitia [facility] 02-10-2023 03:21-0400 Heart rate 76 /min Dr. Adriane Mccoy [facility] 02-10-2023 03:21-0400 Respiratory rate 17 /[facility]-10-[facility]23 03:21-0400 Systolic blood pressure 104 mm[Hg] Dr. Adriane Espitia [facility] 02-10-2023 02:32-0400 PAIN LEVEL 0 {score} [facility]-09-[facility] 19:58-0400 PAIN LEVEL 1 {score} Dr. Adriane Mccoy [facility] 02-09-2023 18:46-0400 PAIN LEVEL 3 {score} Dr. Adriane Mccoy [facility] 02-09-2023 16:19-0400 Body temperature 98.8 [degF] [facility] 16:19-0400 Diastolic blood pressure 71 mm[Hg] Dr. Adriane Espitia [facility] 02-09-2023 16:19-0400 Heart rate 81 /min Dr. Adriane Mccoy [facility] 02-09-2023 16:19-0400 Respiratory rate 18 /[facility] 02-09-2023 16:19-0400 Systolic blood pressure 113 mm[Hg] Dr. Adriane Espitia [facility] 02-09-2023 08:24-0400 PAIN LEVEL 0 {score} Dr. Adriane Mccoy [facility] 02-09-2023 02:56-0400 PAIN LEVEL 0 {score} Dr. Adriane Mccoy [facility] 02-08-2023 19:51-0400 Body temperature 97.4 [degF] Dr. Adriane Mccoy [facility] 02-08-2023 19:51-0400 Diastolic blood pressure 77 mm[facility]Hg[facility] 19:51-0400 Heart rate 79 /[facility] 02-08-2023 19:51-0400 Respiratory rate 16 /min Dr. Adriane Mccoy [facility] 02-08-2023 19:51-0400 Systolic blood pressure 117 mm[Hg[facility] 02-08-2023 13:37-0400 Body weight 60.[address] [facility] 02-08-2023 08:24-0400 PAIN LEVEL 0 {score} Dr. Adriane Mccoy [facility] 02-07-2023 17:47-0400 Body temperature 97.5 [degF] Dr. Adriane Mccoy [facility] 02-07-2023 17:47-0400 Diastolic blood pressure 68 mm[Hg] Dr. Adriane Espitia [facility] 02-07-2023 17:47-0400 Heart rate 83 /min Dr. Adriane Mccoy [facility] 02-07-2023 17:47-0400 Respiratory rate 20 /min Dr. Adriane Mccoy [facility] 02-07-2023 17:47-0400 Systolic blood pressure 119 mm[Hg] [facility] 02-07-2023 13:59-0400 Body temperature 98.1 [degF] Dr. Adriane Mccoy [facility] 02-07-2023 13:59-0400 Diastolic blood pressure 87 mm[Hg] Dr. Adriane Espitia [facility] 02-07-2023 13:59-0400 Heart rate 77 /min Dr. Adriane Mccoy [facility] 02-07-2023 13:59-0400 Respiratory rate 20 /min Dr. Adriane Mccoy [facility] 02-07-2023 13:59-0400 Systolic blood pressure 146 mm[Hg] [facility] 02-07-2023 08:51-0400 PAIN LEVEL 0 {score} Dr. Adriane Mccoy [facility] 02-07-2023 05:11-0400 Body temperature 98 [degF] Dr. Adriane Mccoy [facility] 02-07-2023 05:11-0400 Diastolic blood pressure 72 mm[Hg[facility]-07-2023 05:11-0400 Heart rate 70 /[facility]-07-[facility] 05:11-0400 Respiratory rate 16 /min Dr. Adriane Mccoy [facility] 02-07-2023 05:11-0400 Systolic blood pressure 112 mm[Hg] Dr. Adriane [facility] 02-07-2023 01:10-0400 PAIN LEVEL 0 {score} Dr. Adriane Mccoy [facility] 02-06-2023 18:12-0400 Body temperature 98.2 [degF] Dr. Adriane Mccoy [facility] 02-06-2023 18:12-0400 Diastolic blood pressure 74 mm[Hg] Dr. Adriane Espitia [facility] 02-06-2023 18:12-0400 Heart rate 72 /[facility] 02-06-2023 18:12-0400 Respiratory rate 17 /min Dr. Adriane Mccoy [facility] 02-06-2023 18:12-0400 Systolic blood pressure 116 mm[Hg] Dr. Adriane Espit[facility] 02-06-2023 17:16-0400 PAIN LEVEL 0 {score} [facility] 02-06-2023 09:10-0400 PAIN LEVEL 0 {score} [facility] 02-06-2023 03:23-0400 PAIN LEVEL 0 {score} [facility] 01:40-0400 Body temperature 98.7 [degF] Dr. Adriane Mccoy [facility] 02-06-2023 01:40-0400 Diastolic blood pressure 73 mm[Hg] Dr. Adriane Espitia [facility] 02-06-2023 01:40-0400 Heart rate 83 /min Dr. Adriane Mccoy [facility] 02-06-2023 01:40-0400 Respiratory rate 16 /min Dr. Adriane Mccoy [facility] 02-06-2023 01:40-0400 Systolic blood pressure 121 mm[Hg] [facility] 18:38-0400 Body temperature 99 [degF] Dr. Adriane Mccoy [facility] 02-05-2023 18:38-0400 Diastolic blood pressure 67 mm[Hg] Dr. Adriane Espitia [facility] 02-05-2023 18:38-0400 Heart rate 81 /min Dr. Adriane Mccoy [facility] 02-05-2023 18:38-0400 Respiratory rate 18 /min Dr. Adriane Lunamir [facility] 02-05-2023 18:38-0400 Systolic blood pressure 105 mm[Hg] Dr. Adriane Espitia [facility] 02-05-2023 14:45-0400 Body temperature 97.6 [degF] Dr. Adriane Lunamir [facility] 02-05-2023 14:45-0400 Diastolic blood pressure 65 mm[Hg] Dr. Adriane Espitia [facility] 02-05-2023 14:45-0400 Heart rate 64 /[facility] 14:45-0400 Respiratory rate 16 /min Dr. Adriane Mccoy [facility] 02-05-2023 14:45-0400 Systolic blood pressure 96 mm[Hg] Dr. Adriane Espitia [facility] 02-05-2023 08:13-0400 PAIN LEVEL 0 {score} Dr. Adriane Mccoy [facility] 02-05-2023 08:11-0400 PAIN LEVEL 0 {score} [facility] 05:35-0400 Body temperature 97.5 [degF] Dr. Adriane Mccoy [facility] 02-05-2023 05:35-0400 Diastolic blood pressure 71 mm[Hg] Dr. Adriane Espitia [facility] 02-05-2023 05:35-0400 Heart rate 73 /[facility] 05:35-0400 Respiratory rate 17 /[facility] 05:35-0400 Systolic blood pressure 109 mm[Hg] Dr. Adriane Espitia [facility] 02-05-2023 03:14-0400 PAIN LEVEL 3 {score} [facility] 02:33-0400 PAIN LEVEL 2 {score} Dr. Adriane Espitia [facility] 02-04-2023 08:52-0400 PAIN LEVEL 0 {score} Dr. Adriane Espitia [facility] 02-04-2023 01:24-0400 Body temperature 98.6 [degF] Dr. Adriane Mccoy [facility] 02-04-2023 01:24-0400 Diastolic blood pressure 66 mm[Hg] Dr. Adriane Espitia [facility] 02-04-2023 01:24-0400 Heart rate 81 /[facility]-04-2023 01:24-0400 Respiratory rate 17 /min Dr. Adriane Lunamir [facility] 02-04-2023 01:24-0400 Systolic blood pressure 106 mm[Hg] Dr. Adriane Espitia [facility] 02-03-2023 16:05-0400 Body temperature 98.4 [degF] Dr. Adriane Mccoy [facility] 02-03-2023 16:05-0400 Diastolic blood pressure 82 mm[Hg] [facility]23 16:05-0400 Heart rate 82 /min Dr. Adriane Mccoy [facility] 02-03-2023 16:05-0400 Respiratory rate 17 /min Dr. Adriane Espitia [facility] 02-03-2023 16:05-0400 Systolic blood pressure 123 mm[Hg] Dr. Adriane Espitia [facility] 02-03-2023 08:39-0400 PAIN LEVEL 0 {score} Dr. Adriane Mccoy [facility] 02-03-2023 00:36-0400 Oxygen saturation in Blood 95 % Dr. Adriane Espitia [facility] 02-03-2023 00:34-0400 Diastolic blood pressure 71 mm[Hg] Dr. Adriane Espitia [facility] 02-03-2023 00:34-0400 Systolic blood pressure 113 mm[Hg] Dr. Adriane Espitia [facility] 02-03-2023 00:33-0400 Respiratory rate 17 /min Dr. Adriane Mccoy [facility] 02-03-2023 00:30-0400 Heart rate 62 /min Dr. Adriane Mccoy [facility] 02-03-2023 00:29-0400 Body temperature 98.3 [degF] Dr. Adriane Mccoy [facility] 02-02-2023 23:38-0400 PAIN LEVEL 0 {score} Dr. Adriane Mccoy [facility] 02-02-2023 15:55-0400 Body temperature 97.4 [degF] Dr. Adriane Mccoy [facility] 02-02-2023 15:55-0400 Diastolic blood pressure 68 mm[Hg] Dr. Adriane Espitia [facility] 02-02-2023 15:55-0400 Heart rate 80 /min Dr. dAriane Mccoy [facility] 02-02-2023 15:55-0400 Respiratory rate 16 /[facility]-02-2023 15:55-0400 Systolic blood pressure 105 mm[Hg] Dr. Adriane Espitia [facility] 02-02-2023 12:21-0400 Body temperature 97.6 [degF] Dr. Adriane Mccoy [facility] 02-02-2023 12:21-0400 Diastolic blood pressure 81 mm[Hg] Dr. Adriane Espitia [facility] 02-02-2023 12:21-0400 Heart rate 81 /min Dr. Adriane Mccoy [facility] 02-02-2023 12:21-0400 Respiratory rate 16 /min Dr. Adriane Mccoy [facility] 02-02-2023 12:21-0400 Systolic blood pressure 131 mm[Hg] Dr. Adriane Espitia [facility] 02-02-2023 08:10-0400 PAIN LEVEL 0 {score} [facility]-02-[facility] 02:12-0400 Body temperature 98.1 [degF] Dr. Adriane Mccoy [facility] 02-02-2023 02:12-0400 Diastolic blood pressure 70 mm[Hg] [facility]-02-2023 02:12-0400 Heart rate 71 /min Dr. Adriane Mccoy [facility] 02-02-2023 02:12-0400 Respiratory rate 18 /min Dr. Adriane Mccoy [facility] 02-02-2023 02:12-0400 Systolic blood pressure 112 mm[Hg] Dr. Adriane Espitia [facility] 02-02-2023 00:43-0400 PAIN LEVEL 0 {score} Dr. Adriane Mccoy [facility] 02-01-2023 22:14-0400 Oxygen saturation in Blood 94 % Dr. Adriane Espitia [facility] 02-01-2023 22:11-0400 Oxygen saturation in Blood 94 % Dr. Adriane Espitia [facility] 02-01-2023 17:18-0400 PAIN LEVEL 0 {score} [facility]-01-[facility]23 15:46-0400 Body temperature 98.3 [degF] Dr. Adriane Mccoy [facility] 02-01-2023 15:46-0400 Diastolic blood pressure 70 mm[Hg] Dr. Adriane Espitia [facility] 02-01-2023 15:46-0400 Heart rate 70 /min Dr. Adriane Mccoy [facility] 02-01-2023 15:46-0400 Respiratory rate 19 /min Dr. Adriane Mccoy [facility] 02-01-2023 15:46-0400 Systolic blood pressure 109 mm[Hg] Dr. Adriane Espitia [facility] 02-01-2023 14:56-0400 Body weight 65.[address] [facility] 02-01-2023 14:36-0400 Body temperature 98.4 [degF] Dr. Adriane Mccoy [facility] 02-01-2023 14:36-0400 Diastolic blood pressure 80 mm[Hg] Dr. Adriane Espitia [facility] 02-01-2023 14:36-0400 Heart rate 70 /[facility] 02-01-2023 14:36-0400 Respiratory rate 18 /[facility] 02-01-2023 14:36-0400 Systolic blood pressure 135 mm[Hg] Dr. Adriane Espitia [facility] 02-01-2023 14:26-0400 Body weight 65.[address] [facility] 02-01-2023 09:47-0400 PAIN LEVEL 0 {score} Dr. Adriane Mccoy [facility] 02-01-2023 05:16-0400 Body temperature 97.6 [degF] Dr. Adriane Mccoy [facility] 02-01-2023 05:16-0400 Diastolic blood pressure 71 mm[Hg] [facility]-01-2023 05:16-0400 Heart rate 75 /min Dr. Adriane Mccoy [facility] 02-01-2023 05:16-0400 Respiratory rate 18 /[facility]23 05:16-0400 Systolic blood pressure 117 mm[Hg] Dr. Adriane Espitia [facility] 01-31-2023 16:00-0400 Body temperature 98.1 [degF] Dr. Adriane Mccoy [facility] 01-31-2023 16:00-0400 Diastolic blood pressure 71 mm[Hg] Dr. Adriane Espitia [facility] 01-31-2023 16:00-0400 Heart rate 76 /[facility] 01-31-2023 16:00-0400 Respiratory rate 17 /[facility]-2023 16:00-0400 Systolic blood pressure 109 mm[Hg] Dr. Adriane Espitia [facility] 01-31-2023 08:45-0400 PAIN LEVEL 0 {score} Dr. Adriane Mccoy [facility] 01-30-2023 08:08-0400 PAIN LEVEL 0 {score} Dr. Adriane Mccoy [facility] 01-30-2023 01:17-0400 Body temperature 99 [degF] Dr. Adriane Mccoy [facility] 01-30-2023 01:17-0400 Diastolic blood pressure 76 mm[Hg] Dr. Adriane Espitia [facility] 01-30-2023 01:17-0400 Heart rate 86 /min Dr. Adriane Mccoy [facility] 01-30-2023 01:17-0400 Respiratory rate 17 /min Dr. Adriane Lunamir [facility] 01-30-2023 01:17-0400 Systolic blood pressure 127 mm[Hg] [facility] 01-29-2023 18:43-0400 Body temperature 97.1 [degF] Dr. Adriane Mccoy [facility] 01-29-2023 18:43-0400 Diastolic blood pressure 74 mm[Hg] Dr. Adriane Espitia [facility] 01-29-2023 18:43-0400 Heart rate 84 /[facility] 01-29-2023 18:43-0400 Respiratory rate 17 /[facility] 01-29-2023 18:43-0400 Systolic blood pressure 128 mm[Hg] Dr. Adriane Espitia [facility] 01-29-2023 13:51-0400 Body temperature 98.5 [degF] Dr. Adriane Mccoy [facility] 01-29-2023 13:51-0400 Diastolic blood pressure 76 mm[Hg] Dr. Adriane Espitia [facility] 01-29-2023 13:51-0400 Heart rate 74 /min Dr. Adriane Mccoy [facility] 01-29-2023 13:51-0400 Respiratory rate 17 /[facility] 01-29-2023 13:51-0400 Systolic blood pressure 130 mm[Hg] [facility] 01-29-2023 08:20-0400 PAIN LEVEL 0 {score} Dr. Adriane Mccoy [facility] 01-29-2023 05:12-0400 PAIN LEVEL 0 {score} Dr. Adriane Mccoy [facility] 01-29-2023 01:28-0400 Body temperature 98.1 [degF] Dr. Adriane Mccoy [facility] 01-29-2023 01:28-0400 Diastolic blood pressure 74 mm[Hg] Dr. Adriane Espitia [facility] 01-29-2023 01:28-0400 Heart rate 72 /[facility] 01-29-2023 01:28-0400 Respiratory rate 16 /min Dr. Adriane Mccoy [facility] 01-29-2023 01:28-0400 Systolic blood pressure 127 mm[Hg] Dr. Adriane Espitia [facility] 01-28-2023 19:25-0400 Body temperature 98.2 [degF] Dr. Adriane Mccoy [facility] 01-28-2023 19:25-0400 Diastolic blood pressure 75 mm[Hg] [facility] 01-28-2023 19:25-0400 Heart rate 75 /min Dr. Adriane Mccoy [facility] 01-28-2023 19:25-0400 Respiratory rate 17 /min Dr. Adriane Mccoy [facility] 01-28-2023 19:25-0400 Systolic blood pressure 121 mm[Hg] [facility] 01-28-2023 11:56-0400 Body temperature 97.4 [degF] Dr. Adriane Mccoy [facility] 01-28-2023 11:56-0400 Diastolic blood pressure 80 mm[Hg] Dr. Adriane Espitia [facility] 01-28-2023 11:56-0400 Heart rate 88 /min Dr. Adriane Mccoy [facility] 01-28-2023 11:56-0400 Respiratory rate 21 /[facility]-28-2023 11:56-0400 Systolic blood pressure 124 mm[Hg] Dr. Adriane Espitia [facility] 01-28-2023 08:31-0400 PAIN LEVEL 0 {score} Dr. Adriane Mccoy [facility] 01-28-2023 04:36-0400 PAIN LEVEL 0 {score} Dr. Adriane Mccoy [facility] 01-28-2023 03:39-0400 Body temperature 98.3 [degF] Dr. Adriane Mccoy [facility] 01-28-2023 03:39-0400 Diastolic blood pressure 70 mm[Hg] Dr. Adriane Espitia [facility] 01-28-2023 03:39-0400 Heart rate 81 /min Dr. Adriane Mccoy [facility] 01-28-2023 03:39-0400 Respiratory rate 16 /min Dr. Adriane Mccoy [facility] 01-28-2023 03:39-0400 Systolic blood pressure 120 mm[Hg] [facility] 01-27-2023 16:03-0400 Body temperature 98.5 [degF] Dr. Adriane Mccoy [facility] 01-27-2023 16:03-0400 Diastolic blood pressure 58 mm[Hg] [facility] 01-27-2023 16:03-0400 Heart rate 77 /min Dr. Adriane Mccoy [facility] 01-27-2023 16:03-0400 Respiratory rate 17 /[facility] 01-27-2023 16:03-0400 Systolic blood pressure 113 mm[Hg] Dr. Adriane Espitia [facility] 01-27-2023 12:20-0400 Body temperature 98.1 [degF] Dr. Adriane Mccoy [facility] 01-27-2023 12:20-0400 Diastolic blood pressure 71 mm[Hg] Dr. Adriane Espitia [facility] 01-27-2023 12:20-0400 Heart rate 84 /min Dr. Adriane Mccoy [facility] 01-27-2023 12:20-0400 Respiratory rate 19 /[facility] 01-27-2023 12:20-0400 Systolic blood pressure 121 mm[Hg] [facility] 01-27-2023 11:45-0400 Body weight 64.[address] [facility] 01-27-2023 08:25-0400 PAIN LEVEL 0 {score} Dr. Adriane Mccoy [facility] 01-27-2023 03:46-0400 Body temperature 98.4 [degF] [facility] 01-27-2023 03:46-0400 Diastolic blood pressure 74 mm[Hg] [facility] 01-27-2023 03:46-0400 Heart rate 76 /min Dr. Adriane Mccoy [facility] 01-27-2023 03:46-0400 Respiratory rate 16 /min [facility]. Adriane Espitia [facility] 01-27-2023 03:46-0400 Systolic blood pressure 115 mm[Hg] [facility] 01-26-2023 23:42-0400 PAIN LEVEL 0 {score} Dr. Adriane Mccoy [facility] 01-26-2023 15:51-0400 Body temperature 98.3 [degF] [facility] 01-26-2023 15:51-0400 Diastolic blood pressure 73 mm[Hg] Dr. Adriane Espitia [facility] 01-26-2023 15:51-0400 Heart rate 80 /[facility] 01-26-2023 15:51-0400 Respiratory rate 19 /min Dr. Adriane Mccoy [facility] 01-26-2023 15:51-0400 Systolic blood pressure 115 mm[Hg] [facility] 01-26-2023 08:18-0400 PAIN LEVEL 0 {score} Dr. Adriane Mccoy [facility] 01-25-2023 22:35-0400 Body weight 63.[address] Adriane Mccoy [facility] 01-25-2023 19:57-0400 Body weight 63.[address] Adriane Mccoy [facility] 01-25-2023 16:56-0400 Body temperature 97.6 [degF] Dr. Adriane Mccoy [facility] 01-25-2023 16:56-0400 Diastolic blood pressure 72 mm[Hg] Dr. Adriane Espitia [facility] 01-25-2023 16:56-0400 Heart rate 75 /min Dr. Adriane Mccoy [facility] 01-25-2023 16:56-0400 Oxygen saturation in Blood 95 % Dr. Adriane Espitia [facility] 01-25-2023 16:56-0400 Respiratory rate 18 /[facility] 01-25-2023 16:56-0400 Systolic blood pressure 130 mm[Hg] [facility] 01-25-2023 11:33-0400 Body temperature 97.1 [degF] Dr. Adriane Mccoy [facility] 01-25-2023 11:33-0400 Diastolic blood pressure 81 mm[Hg] [facility] 01-25-2023 11:33-0400 Heart rate 71 /min Dr. Adriane Mccoy [facility] 01-25-2023 11:33-0400 Respiratory rate 16 /min Dr. Adriane Mccoy [facility] 01-25-2023 11:33-0400 Systolic blood pressure 133 mm[Hg] [facility] 01-25-2023 08:43-0400 PAIN LEVEL 0 {score} Dr. Adriane Mccoy [facility] 01-24-2023 19:59-0400 Body weight 63.[address] Adriane Mccoy [facility] 01-24-2023 17:41-0400 Body temperature 97.1 [degF] Dr. Adriane Mccoy [facility] 01-24-2023 17:41-0400 Diastolic blood pressure 73 mm[Hg] [facility] 01-24-2023 17:41-0400 Heart rate 60 /min Dr. Adriane Mccoy [facility] 01-24-2023 17:41-0400 Oxygen saturation in Blood 97 % Dr. Adriane Espitia [facility] 01-24-2023 17:41-0400 Respiratory rate 20 /min Dr. Adriane Mccoy [facility] 01-24-2023 17:41-0400 Systolic blood pressure 141 mm[Hg] [facility] 01-24-2023 13:57-0400 Body weight 65.[address] Adriane Mccoy [facility] 01-24-2023 12:35-0400 Body temperature 98.6 [degF] Dr. Adriane Mccoy [facility] 01-24-2023 12:35-0400 Diastolic blood pressure 72 mm[Hg] Dr. Adriane Espitia [facility] 01-24-2023 12:35-0400 Heart rate 71 /[facility] 01-24-2023 12:35-0400 Respiratory rate 17 /min Dr. Adriane Mccoy [facility] 01-24-2023 12:35-0400 Systolic blood pressure 131 mm[Hg] Dr. Adriane Espitia [facility] 01-24-2023 08:31-0400 PAIN LEVEL 0 {score} Dr. Adriane Espitia [facility] 01-24-2023 01:01-0400 Body temperature 97.5 [degF] [facility] 01:01-0400 Diastolic blood pressure 73 mm[Hg] Dr. Adriane Espitia [facility] 01-24-2023 01:01-0400 Heart rate 61 /[facility]-24-2023 01:01-0400 Respiratory rate 16 /[facility] 01-24-2023 01:01-0400 Systolic blood pressure 119 mm[Hg] Dr. Adriane Espitia [facility] 01-23-2023 23:11-0400 PAIN LEVEL 0 {score} Dr. Adriane Mccoy [facility] 01-23-2023 19:27-0400 Body weight 64.[address] Adriane Espitia [facility] 01-23-2023 18:03-0400 PAIN LEVEL 0 {score} Dr. Adriane Mccoy [facility] 01-23-2023 17:38-0400 Oxygen saturation in Blood 96 % Dr. Adriane Espitia [facility] 01-23-2023 17:38-0400 PAIN LEVEL 0 {score} Dr. Adriane Mccoy [facility] 01-23-2023 16:19-0400 Body temperature 97.6 [degF] Dr. Adriane Mccoy [facility] 01-23-2023 16:19-0400 Diastolic blood pressure 73 mm[Hg] Dr. Adriane Espitia [facility] 01-23-2023 16:19-0400 Heart rate 70 /min Dr. Adriane Espitia [facility] 01-23-2023 16:19-0400 Respiratory rate 16 /min [facility]. Adriane Espitia [facility] 01-23-2023 16:19-0400 Systolic blood pressure 119 mm[Hg] Dr. Adriane Espitia [facility] 01-01-2023 14:30-0400 Body height 168.91 cm David Caputo Other [employer] Other 01-01-2023 14:30-0400 Body mass index (BMI) [Ratio] 20.67 kg/m2 David Caputo Other [employer] [facility] 01-01-2023 14:30-0400 Body weight 58.97 kg David Bolton [employer] [facility] 01-01-2023 14:30-0400 Diastolic blood pressure 59 mm[Hg] David Caputo Other [employer] Other 01-01-2023 14:30-0400 Systolic blood pressure 87 mm[Hg] David Caputo Other [employer] Other 12-26-2022 16:02-0400 Body temperature 97.9 [degF] Ma Sand Work Phone: [facility] 12-26-2022 16:02-0400 Diastolic blood pressure 58 mm[Hg] Ma Sand Work Phone: [facility] 12-26-2022 16:02-0400 Heart rate 76 /min Ma Sand Work Phone: [facility] 12-26-2022 16:02-0400 Respiratory rate 16 /min Ma Sand Work Phone: [facility] 12-26-2022 16:02-0400 SaO2% (BldA) [Mass fraction] 100 % Ma Sand Work Phone: [facility] 12-26-2022 16:02-0400 Systolic blood pressure 89 mm[Hg] Ma Sand Work Phone: [facility] 12-04-2022 14:30-0400 Body height 168.91 cm David Caputo Other [employer] Other 12-04-2022 14:30-0400 Body mass index (BMI) [Ratio] 20.67 kg/m2 David Caputo Other [employer] [facility] 12-04-2022 14:30-0400 Body weight 58.97 kg David Caputo Other [employer] [facility] 12-04-2022 14:30-0400 Diastolic blood pressure 68 mm[Hg] David Caputo Other [employer] [facility] 12-04-2022 14:30-0400 SaO2% (BldA) [Mass fraction] 93 % David Caputo Other [employer] [facility] 12-04-2022 14:30-0400 Systolic blood pressure 109 mm[Hg] David Caputo Other [employer] [facility] 11-28-2022 15:14-0400 Body height 170.8 cm Zahra Buitrago MD Work Phone: [facility] 11-28-2022 15:14-0400 Body temperature 97.2 [degF] Zahra Buitrago MD Work Phone: [facility] 11-28-2022 15:14-0400 Diastolic blood pressure 63 mm[Hg] Zahra Buitrago MD Work Phone: [facility] 11-28-2022 15:14-0400 Heart rate 74 /min Zahra Buitrago MD Work Phone: [facility] 11-28-2022 15:14-0400 Respiratory rate 18 /min Zahra Buitrago MD Work Phone: [facility] 11-28-2022 15:14-0400 SaO2% (BldA) [Mass fraction] 98 % Zahra Buitrago MD Work Phone: [facility] 11-28-2022 15:14-0400 Systolic blood pressure 92 mm[Hg] Zahra Buitrago MD Work Phone: [facility] 10-31-2022 15:31-0400 Body height 170.8 cm Ma Sand Work Phone: [facility] 10-31-2022 15:31-0400 Body temperature 97.59 [degF] Ma Sand Work Phone: [facility] 10-31-2022 15:31-0400 Body weight 64.41 kg Ma Sand Work Phone: [facility] 10-31-2022 15:31-0400 Diastolic blood pressure 63 mm[Hg] Ma Sand Work Phone: [facility] 10-31-2022 15:31-0400 Heart rate 73 /min Ma Sand Work Phone: [facility] 10-31-2022 15:31-0400 Respiratory rate 16 /min Ma Sand Work Phone: [facility] 10-31-2022 15:31-0400 SaO2% (BldA) [Mass fraction] 98 % Ma Sand Work Phone: [facility] 10-31-2022 15:31-0400 Systolic blood pressure 115 mm[Hg] Ma Sand Work Phone: [facility] 09-05-2022 14:17-0500 Body temperature 97.5 [degF] Ma Sand Work Phone: [facility] 09-05-2022 14:17-0500 Diastolic blood pressure 67 mm[Hg] Ma Sand Work Phone: [facility] 09-05-2022 14:17-0500 Heart rate 65 /min Ma Sand Work Phone: [facility] 09-05-2022 14:17-0500 Respiratory rate 18 /min Ma Sand Work Phone: [facility] 09-05-2022 14:17-0500 SaO2% (BldA) [Mass fraction] 97 % Ma Sand Work Phone: [facility] 09-05-2022 14:17-0500 Systolic blood pressure 119 mm[Hg] Ma Sand Work Phone: [facility] 08-08-2022 14:39-0500 Body temperature 97.9 [degF] Zahra Buitrago MD Work Phone: [facility] 08-08-2022 14:39-0500 Body weight 64.41 kg Zahra Buitrago MD Work Phone: [facility] 08-08-2022 14:39-0500 Diastolic blood pressure 76 mm[Hg] Zahra Buitrago MD Work Phone: [facility] 08-08-2022 14:39-0500 Heart rate 88 /min Zahra Buitrago MD Work Phone: [facility] 08-08-2022 14:39-0500 Respiratory rate 40 /min Zahra Buitrago MD Work Phone: [facility] 08-08-2022 14:39-0500 SaO2% (BldA) [Mass fraction] 94 % Zahra Buitrago MD Work Phone: [facility] 08-08-2022 14:39-0500 Systolic blood pressure 111 mm[Hg] Zahra Buitrago MD Work Phone: [facility] [facility] 07-17-2022 15:45-0500 Body height 168.91 cm David Caputo Other [employer] Other 07-17-2022 15:45-0500 Body mass index (BMI) [Ratio] 22.57 kg/m2 David Caputo Other [facility] Other 07-17-2022 15:45-0500 Body weight 64.41 kg David Caputo Other [facility] Other 07-17-2022 15:45-0500 Diastolic blood pressure 58 mm[Hg] David Caputo Other [facility] Other 07-17-2022 15:45-0500 SaO2% (BldA) [Mass fraction] 99 % David Caputo Other [facility] Other 07-17-2022 15:45-0500 Systolic blood pressure 102 mm[Hg] David Caputo Other [facility] [employer] Other 07-03-2022 13:55-0500 Body height 170.8 cm Zahra Buitrago MD Work Phone: [facility] 07-03-2022 13:55-0500 Body temperature 97.39 [degF] Zahra Buitrago MD Work Phone: [facility] 07-03-2022 13:55-0500 Body weight 67.31 kg Zahra Buitrago MD Work Phone: [facility] 07-03-2022 13:55-0500 Diastolic blood pressure 82 mm[Hg] Zahra Buitrago MD Work Phone: [facility] 07-03-2022 13:55-0500 Heart rate 77 /min Zahra Buitrago MD Work Phone: [facility] 07-03-2022 13:55-0500 Respiratory rate 16 /min Zahra Buitrago MD Work Phone: [facility] 07-03-2022 13:55-0500 SaO2% (BldA) [Mass fraction] 100 % Zahra Buitrago MD Work Phone: [facility] 07-03-2022 13:55-0500 Systolic blood pressure 126 mm[Hg] Zahra Buitrago MD Work Phone: [facility] 06-06-2022 13:32-0500 Body height 170.8 cm Zahra Buitrago MD Work Phone: [facility] 06-06-2022 13:32-0500 Body temperature 97.11 [degF] Zahra Buitrago MD Work Phone: [facility] 06-06-2022 13:32-0500 Body weight 65.77 kg Zahra Buitrago MD Work Phone: [facility] 06-06-2022 13:32-0500 Diastolic blood pressure 60 mm[Hg] Zahra Buitrago MD Work Phone: [facility] 06-06-2022 13:32-0500 Heart rate 66 /min Zahra Buitrago MD Work Phone: [facility] 06-06-2022 13:32-0500 Respiratory rate 24 /min Zahra Buitrago MD Work Phone: [facility] 06-06-2022 13:32-0500 SaO2% (BldA) [Mass fraction] 100 % Zahra Buitrago MD Work Phone: [facility] 06-06-2022 13:32-0500 Systolic blood pressure 109 mm[Hg] Zahra Buitrago MD Work Phone: [facility] 05-08-2022 13:45-0500 Body height 170.8 cm Zahra Buitrago MD Work Phone: [facility] 05-08-2022 13:45-0500 Body temperature 97.81 [degF] Zahra Buitrago MD Work Phone: [facility] 05-08-2022 13:45-0500 Body weight 62.41 kg Zahra Buitrago MD Work Phone: [facility] 05-08-2022 13:45-0500 Diastolic blood pressure 58 mm[Hg] Zahra Buitrago MD Work Phone: [facility] 05-08-2022 13:45-0500 Heart rate 63 /min Zahra Buitrago MD Work Phone: [facility] 05-08-2022 13:45-0500 Respiratory rate 16 /min Zahra Buitrago MD Work Phone: [facility] 05-08-2022 13:45-0500 SaO2% (BldA) [Mass fraction] 97 % Zahra Buitrago MD Work Phone: [facility] 05-08-2022 13:45-0500 Systolic blood pressure 102 mm[Hg] Zahra Buitrago MD Work Phone: [facility] 04-10-2022 12:47-0400 Body height 170.8 cm Zahra Buitrago MD Work Phone: [facility] 04-10-2022 12:47-0400 Body temperature 97.7 [degF] Zahra Buitrago MD Work Phone: [facility] 04-10-2022 12:47-0400 Body weight 66.04 kg Zahra Buitrago MD Work Phone: [facility] 04-10-2022 12:47-0400 Diastolic blood pressure 70 mm[Hg] Zahra Buitrago MD Work Phone: [facility] 04-10-2022 12:47-0400 Heart rate 60 /min Zahra Buitrago MD Work Phone: [facility] 04-10-2022 12:47-0400 Respiratory rate 16 /min Zahra Buitrago MD Work Phone: [facility] 04-10-2022 12:47-0400 SaO2% (BldA) [Mass fraction] 99 % Zahra Buitrago MD Work Phone: [facility] 04-10-2022 12:47-0400 Systolic blood pressure 125 mm[Hg] Zahra Buitrago MD Work Phone: [facility] 03-13-2022 12:57-0400 Body height 170.8 cm Rola Gordon APRN.DIVIDEND DEPOSIT VOUCHER CLERK Work Phone: [facility] 03-13-2022 12:57-0400 Body temperature 97.11 [degF] Rola Gordon APRN.DIVIDEND DEPOSIT VOUCHER CLERK Work Phone: [facility] 03-13-2022 12:57-0400 Body weight 65.77 kg Rola Gordon APRN.DIVIDEND DEPOSIT VOUCHER CLERK Work Phone: [facility] 03-13-2022 12:57-0400 Diastolic blood pressure 68 mm[Hg] Rola Gordon APRN.DIVIDEND DEPOSIT VOUCHER CLERK Work Phone: [facility] 03-13-2022 12:57-0400 Heart rate 74 /min Rola Gordon APRN.DIVIDEND DEPOSIT VOUCHER CLERK Work Phone: [facility] 03-13-2022 12:57-0400 Respiratory rate 20 /min Rola Gordon APRN.DIVIDEND DEPOSIT VOUCHER CLERK Work Phone: [facility] 03-13-2022 12:57-0400 SaO2% (BldA) [Mass fraction] 100 % Rola Gordon APRN.DIVIDEND DEPOSIT VOUCHER CLERK Work Phone: [facility] 03-13-2022 12:57-0400 Systolic blood pressure 119 mm[Hg] Rola Gordon APRN.DIVIDEND DEPOSIT VOUCHER CLERK Work Phone: [facility] 02-13-2022 14:09-0400 Body height 170.8 cm Zahra Buitrago MD Work Phone: [facility] 02-13-2022 14:09-0400 Body temperature 97.81 [degF] Zahra Buitrago MD Work Phone: [facility] 02-13-2022 14:09-0400 Body weight 65.14 kg Zahra Buitrago MD Work Phone: [facility] 02-13-2022 14:09-0400 Diastolic blood pressure 74 mm[Hg] Zahra Buitrago MD Work Phone: [facility] 02-13-2022 14:09-0400 Heart rate 62 /min Zahra Buitrago MD Work Phone: [facility] 02-13-2022 14:09-0400 Respiratory rate 16 /min Zahra Buitrago MD Work Phone: [facility] 02-13-2022 14:09-0400 SaO2% (BldA) [Mass fraction] 95 % Zahra Buitrago MD Work Phone: [facility] 02-13-2022 14:09-0400 Systolic blood pressure 108 mm[Hg] Zahra Buitrago MD Work Phone: [facility] 02-04-2022 13:50-0400 63.6 1 David Derrick Caputo Work Phone: [facility] DO Work Phone: Comment on above: [facility] 01-16-2022 14:00-0400 Body height 172.72 cm Nate Hanson Other [facility] [employer] Other 01-16-2022 14:00-0400 Body mass index (BMI) [Ratio] 21.28 kg/m2 Nate Hanson Other [facility] [employer] Other 01-16-2022 14:00-0400 Body weight 63.5 kg Nate Lamormack Other [facility] [employer] Other 12-05-2021 14:57-0400 Body height 170.8 cm Zahra Buitrago MD Work Phone: [facility] 12-05-2021 14:57-0400 Body temperature 97.39 [degF] Zahra Buitrago MD Work Phone: [facility] 12-05-2021 14:57-0400 Body weight 73.48 kg Zahra Buitrago MD Work Phone: [facility] 12-05-2021 14:57-0400 Diastolic blood pressure 85 mm[Hg] Zahra Buitrago MD Work Phone: [facility] 12-05-2021 14:57-0400 Heart rate 80 /min Zahra Buitrago MD Work Phone: [facility] 12-05-2021 14:57-0400 Respiratory rate 16 /min Zahra Buitrago MD Work Phone: [facility] 12-05-2021 14:57-0400 SaO2% (BldA) [Mass fraction] 97 % Zahra Buitrago MD Work Phone: [facility] 12-05-2021 14:57-0400 Systolic blood pressure 123 mm[Hg] Zahra Buitrago MD Work Phone: [facility] Encounters Encounter Date Encounter Type Care Provider Facility Start: 07-14-2023 End: 07-14-2023 ambulatory David Caputo Other [facility] Other Start: 07-14-2023 Telephone encounter aDvid Caputo [facility] Start: 06-30-2023 End: 06-30-2023 ambulatory David Caputo Other [facility] Other Start: 06-30-2023 Telephone encounter David Caputo [facility] Start: 06-04-2023 End: 06-04-2023 ambulatory David Caputo Other [facility] Other Start: 06-04-2023 Office outpatient vi sit 25 minutes David Caputo [facility] Start: 05-22-2023 End: 05-22-2023 ambulatory David Caputo Other [facility] Other Start: 05-22-2023 Telephone encounter David Caputo [facility] Start: 05-19-2023 End: 05-19-2023 ambulatory David Caputo Other [facility] Other Start: 05-19-2023 Telephone encounter David Caupto [facility] Start: 05-06-2023 End: 05-06-2023 ambulatory David Caputo Other [facility] Other Start: 05-06-2023 Telephone encounter David Caputo [facility] Start: 04-14-2023 End: 04-14-2023 ambulatory David Caputo Other [facility] Other Start: 04-14-2023 Telephone encounter David Caputo [facility] Start: 04-09-2023 End: 04-09-2023 ambulatory DAVID CAPUTO Facility:[facility] Start: 04-09-2023 End: 04-09-2023 Nursing evaluation of patient and report Ma Nurse Zelalem Hart Work Phone: Hematology/Oncology Comment on above: Macrocytosis (Primar y Dx); Abnormal weight loss; Adenocarcinoma (HCC); Cancer of ampulla of Vater (HCC) Start: 04-07-2023 End: 04-07-2023 ambulatory David Caputo Other [facility] Other Start: 04-07-2023 Telephone encounter David Caputo [facility] Start: 03-31-2023 End: 03-31-2023 ambulatory David Caputo Other [facility] Other Start: 03-31-2023 Telephone encounter David Caputo [facility] Start: 03-30-2023 Refill Zahra ibrahim MD Work Phone: Hematology/Oncology Comment on above: Refill Request Start: 03-20-2023 End: 03-20-2023 ambulatory David Caputo Other [facility] Other Start: 03-20-2023 Telephone encounter David Caputo [facility] Start: 03-19-2023 End: 03-19-2023 ambulatory David Caputo Other [facility] Other Start: 03-19-2023 Telephone encounter David Caputo [facility] Start: 03-16-2023 End: 03-16-2023 ambulatory David Caputo Other [facility] Other Start: 03-16-2023 Telephone encounter David Caputo [facility] Start: 03-11-2023 Telephone encounter Zahra foster MD Work Phone: [facility] Comment on above: Future Appointment; Results Start: 03-11-2023 End: 03-11-2023 ambulatory DAVID CAPUTO Facility:[facility] Start: 03-11-2023 End: 03-11-2023 Nursing evaluation of patient and report Ma Nurse Zelalem Hart Work Phone: Hematology/Oncology Comment on above: Macrocytosis (Primar y Dx); Abnormal weight loss; Adenocarcinoma (HCC); Cancer of ampulla of Vater (HCC) Start: 03-11-2023 End: 03-11-2023 Office outpatient visit 25 minutes Zahra Buitrago MD Work Phone: Hematology/Oncology Comment on above: 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); Anemia due to vitamin B12 deficiency, unspecified B12 deficiency type; Iron deficiency anemia, unspecified iron deficiency anemia type Start: 03-11-2023 End: 03-11-2023 ambulatory DAVID CAPUTO Facility:[facility] Start: 03-10-2023 End: 03-10-2023 ambulatory David Caputo Other [facility] Other Start: 03-10-2023 Telephone encounter David Caputo [facility] Start: 03-09-2023 End: 03-09-2023 ambulatory David Caputo Other [facility] Other Start: 03-09-2023 Telephone encounter David Caputo [facility] Start: 03-05-2023 End: 03-05-2023 ambulatory David Caputo Other [facility] Other Start: 03-05-2023 Office outpatient vi sit 15 minutes David Caputo [facility] Start: 03-05-2023 Telephone encounter Zahra foster MD Work Phone: Hematology/Oncology Comment on above: Lab Orders Start: 02-19-2023 End: 02-19-2023 Office outpatient visit 25 minutes Zahra Buitrago MD Work Phone: Hematology/Oncology Comment on above: 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); Abnormal weight loss; Anemia due to vitamin B12 deficiency, unspecified B12 deficiency type; Macrocytosis; Iron deficiency anemia, unspecified iron deficiency anemia type Start: 02-19-2023 End: 02-20-2023 ambulatory DAVID CAPUTO [facility] Other Start: 02-19-2023 Telephone encounter David Caputo [facility] Start: 02-17-2023 Telephone encounter Zahra foster MD Work Phone: Hematology/Oncology Comment on above: Lab Orders Start: 02-13-2023 End: 02-13-2023 ambulatory David Caputo Other [facility] Other Start: 02-13-2023 Telephone encounter David Caputo [facility] Start: 02-10-2023 End: 02-10-2023 ambulatory David Caputo Facility:[facility] Start: 02-10-2023 End: 02-10-2023 Patient encounter procedure MD David Caputo Work Phone: [facility] Start: 01-27-2023 End: 01-27-2023 ambulatory Adriane Espitia Facility:[facility] Start: 01-27-2023 End: 01-27-2023 ambulatory MD David Caputo Work Phone: [facility] Work Phone: Start: 01-27-2023 End: 01-27-2023 Patient encounter procedure MD David Caputo Work Phone: [facility] Start: 01-21-2023 Telephone encounter Susan kurtz RN Work Phone: Hematology/Oncology Comment on above: Hospital Admission Start: 01-14-2023 End: 01-14-2023 ambulatory David Caputo Other [facility] Other Start: 01-14-2023 Telephone encounter David Caputo [facility] Start: 01-13-2023 Telephone encounter Cassandra Hernandez R N Hematology/Oncology Comment on above: Results; Appointment Start: 01-12-2023 End: 01-12-2023 ambulatory David Caputo Other [facility] Other Start: 01-12-2023 Telephone encounter David Caputo [facility] Start: 01-01-2023 End: 01-01-2023 ambulatory David Caputo Other [facility] Other Start: 01-01-2023 Office outpatient vi sit 15 minutes David Caputo [facility] Start: 12-26-2022 End: 12-26-2022 ambulatory DAVID CAPUTO Facility:[facility] Start: 12-26-2022 End: 12-26-2022 Nursing evaluation of patient and report Lamont Hart Work Phone: Hematology/Oncology Comment on above: Macrocytosis (Primar y Dx); Abnormal weight loss; Adenocarcinoma (HCC); Cancer of ampulla of Vater (HCC) Start: 12-08-2022 End: 12-08-2022 ambulatory David Caputo Other [facility] Other Start: 12-08-2022 Telephone encounter David Caputo [facility] Start: 12-04-2022 End: 12-04-2022 ambulatory David Caputo Other [facility] Other Start: 12-04-2022 Office outpatient vi sit 15 minutes David Caputo [facility] Start: 11-28-2022 End: 11-28-2022 ambulatory DAVID CAPUTO Facility:[facility] Start: 11-28-2022 End: 11-28-2022 Nursing evaluation of patient and report Lamont Hart Work Phone: Hematology/Oncology Comment on above: Macrocytosis (Primar y Dx); Abnormal weight loss; Adenocarcinoma (HCC); Cancer of ampulla of Vater (HCC) Start: 11-28-2022 End: 11-28-2022 Office outpatient visit 15 minutes Zahra Buitrago MD Work Phone: Hematology/Oncology Comment on above: Anemia due to vitami n B12 deficiency, unspecified B12 deficiency type (Primary Dx); Iron deficiency anemia, unspecified iron deficiency anemia type; Cancer of ampulla of Vater (HCC); Duodenal obstruction; Severe protein-calorie malnutrition (HCC) Start: 11-27-2022 End: 11-27-2022 ambulatory David Caputo Other [facility] Other Start: 11-27-2022 Telephone encounter David Harshal [facility] Start: 11-21-2022 End: 11-21-2022 ambulatory David Caputo Other [facility] Other Start: 11-21-2022 Telephone encounter David Caputo [facility] Start: 11-04-2022 End: 11-04-2022 ambulatory David Harshal Other [facility] Other Start: 11-04-2022 Telephone encounter David Harshal [facility] Start: 10-31-2022 End: 10-31-2022 ambulatory DAVID Meza CAPUTO Facility:[facility] Start: 10-31-2022 End: 10-31-2022 Nursing evaluation of patient and report Lamont Hart Work Phone: Hematology/Oncology Comment on above: Macrocytosis (Primar y Dx); Abnormal weight loss; Adenocarcinoma (HCC); Cancer of ampulla of Vater (HCC) Start: 10-28-2022 End: 10-28-2022 ambulatory Zahra Buitrago MD Work Phone: [employer] Other Comment on above: Refill Request Start: 10-28-2022 Telephone encounter David Caputo [facility] Start: 10-03-2022 End: 10-04-2022 ambulatory DAVID Meza CAPUTO Facility:[facility] Start: 10-03-2022 End: 10-03-2022 Nursing evaluation of patient and report Lamont Hart Work Phone: Hematology/Oncology Comment on above: Macrocytosis (Primar y Dx); Abnormal weight loss; Adenocarcinoma (HCC); Cancer of ampulla of Vater (HCC) Start: 09-29-2022 End: 09-29-2022 ambulatory David Caputo Other [facility] Other Start: 09-29-2022 Telephone encounter David Caputo [facility] Start: 09-17-2022 End: 09-17-2022 ambulatory David Caputo Other [facility] Other Start: 09-17-2022 Telephone encounter David Caputo [facility] Start: 09-16-[address] David Caputo Facility: Start: 09-08-2022 End: 09-08-2022 ambulatory David Caputo Other [facility] Other Start: 09-08-2022 Telephone encounter David Caputo [facility] Start: 09-05-2022 End: 09-06-2022 ambulatory DAVID CAPUTO Facility:[facility] Start: 09-05-2022 End: 09-05-2022 Nursing evaluation of patient and report Lamont Hart Work Phone: Hematology/Oncology Comment on above: Macrocytosis (Primar y Dx); Abnormal weight loss; Adenocarcinoma (HCC); Cancer of ampulla of Vater (HCC) Start: 08-19-2022 Refill Zahra ibrahim MD Work Phone: Hematology/Oncology Comment on above: Refill Request Start: 08-11-2022 End: 08-11-2022 ambulatory David Caputo Other [facility] Other Start: 08-11-2022 Telephone encounter David Caputo [facility] Start: 08-08-2022 End: 08-09-2022 ambulatory DAVID CAPUTO Facility:[facility] Start: 08-08-2022 End: 08-08-2022 Office outpatient visit 15 minutes Zahra Buitrago MD Work Phone: Hematology/Oncology Comment on above: Macrocytosis (Primar y Dx); Anemia due to vitamin B12 deficiency, unspecified B12 deficiency type; Anemia due to folic acid deficiency, unspecified deficiency type; Cancer of ampulla of Vater (HCC) Start: 08-08-2022 Telephone encounter Magalys Cruz RN Hematology/Oncology Comment on above: Critical Results Start: 07-24-2022 End: 07-24-2022 ambulatory David Caputo Other [facility] Other Start: 07-24-2022 Telephone encounter David Caputo [facility] Start: 07-17-2022 End: 07-17-2022 ambulatory David Caputo Other [facility] Other Start: 07-17-2022 Office outpatient vi sit 25 minutes David Caputo [facility] Start: 07-11-2022 End: 07-12-[address] CORY POOL Facility: Start: 07-07-2022 Telephone encounter Magalys Cruz RN Hematology/Oncology Comment on above: Results Start: 07-03-2022 End: 07-03-2022 Nursing evaluation of patient and report Ma Nurse Zelalem Hart Work Phone: Hematology/Oncology Comment on above: Macrocytosis (Primar y Dx); Abnormal weight loss; Adenocarcinoma (HCC); Cancer of ampulla of Vater (HCC); Anemia due to vitamin B12 deficiency, unspecified B12 deficiency type Start: 07-03-2022 End: 07-03-2022 ambulatory Zahra Buitrago MD Work Phone: Hematology/Oncology Comment on above: 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 [employer] Other Start: 05-12-2022 End: 05-13-[address] DAVID CAPUTO Facility: Start: 05-08-2022 End: 05-08-2022 Nursing evaluation of patient and report Lamont Hart Work Phone: Hematology/Oncology Comment on above: Macrocytosis (Primar y Dx); Abnormal weight loss; Adenocarcinoma (HCC); Cancer of ampulla of Vater (HCC) Start: 05-08-2022 End: 05-08-2022 ambulatory Zahra Buitrago MD Work Phone: Hematology/Oncology Comment on above: Iron deficiency anem ia, unspecified iron deficiency anemia type (Primary Dx); Anemia due to vitamin B12 deficiency, unspecified B12 deficiency type; Anemia due to folic acid deficiency, unspecified deficiency type; Cancer of ampulla of Vater (HCC) Start: 05-08-2022 End: 05-08-2022 Patient encounter procedure Zahra Buitrago MD Work Phone: [facility] Start: 04-10-2022 End: 04-10-2022 ambulatory Chair Niall Zhane Work Phone: Hematology/Oncology Comment on above: Macrocytosis (Primar y Dx); Abnormal weight loss; Adenocarcinoma (HCC); Cancer of ampulla of Vater (HCC); Iron deficiency anemia, unspecified iron deficiency anemia type Iron deficiency anem ia, unspecified iron deficiency anemia type (Primary Dx); Anemia due to vitamin B12 deficiency, unspecified B12 deficiency type; Macrocytosis Start: 04-10-2022 End: 04-10-2022 Patient encounter procedure Zahra Buitrago MD Work Phone: [facility] Start: 04-09-2022 Telephone encounter Zahra foster MD Work Phone: Hematology/Oncology Comment on above: Lab Orders Start: 03-27-2022 Refill Imelda walekr [facility] Work Phone: Hematology/Oncology Comment on above: Refill Request Start: 03-13-2022 Telephone encounter Financial Navigator Zelalem Work Phone: Hematology/Oncology Comment on above: Benefits Investigati on Refill Request Start: 03-13-2022 End: 03-13-2022 ambulatory Rola Gordon APRN.CNP Work Phone: Hematology/Oncology Comment on above: 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 [address] DO Work Phone: Start: 03-06-2022 Rx Renewal David Meza Harshal Work Phone: [facility] [facility] DO Work Phone: Start: 02-28-2022 Social Work Mackenzie Gutiérrez RN [facility] Hematolo gy/Oncology Start: 02-17-2022 Telephone encounter Cassandra Longoria Hematology/Oncology Comment on above: Refill Request Start: 02-13-2022 End: 02-13-2022 Nursing evaluation of patient and report Ma Nurse Zelalem Hart Work Phone: Hematology/Oncology Comment on above: Macrocytosis (Primar y Dx); Abnormal weight loss; Adenocarcinoma (HCC); Cancer of ampulla of Vater (HCC) Start: 02-13-2022 End: 02-13-2022 ambulatory Zahra Buitrago MD Work Phone: Hematology/Oncology Comment on above: Iron deficiency anem ia, unspecified iron deficiency anemia type (Primary Dx); Cancer of ampulla of Vater (HCC); Macrocytosis Start: 02-13-2022 End: 02-13-2022 Patient encounter procedure Zahra Buitrago MD Work Phone: [facility] Start: 02-11-2022 Refill Magalys Cruz RN Hematol ogy/Oncology Comment on above: Refill Request Start: 02-10-2022 Telephone encounter Veronica Hall RN Work Phone: Hematology/Oncology Comment on above: Care Coordination (M edication question/) Start: 02-04-2022 End: 02-05-[address] IRVING ABREU Facility: Start: 01-16-2022 End: 01-16-2022 ambulatory Nate Hanson Other [facility] Other Start: 01-16-2022 Office outpatient vi sit 25 minutes [facility] Start: 01-09-[address] 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); Duodenal obstruction; Iron deficiency anemia, unspecified iron deficiency anemia type; Adenocarcinoma (HCC); Primary malignant neoplasm (HCC); Malignant neoplasm of body of pancreas (HCC) Start: 12-05-2021 End: 12-05-2021 Patient encounter procedure Zahra Buitrago MD Work Phone: [facility] Start: 12-03-2021 Chart abstracting Zahra zapata MD Work Phone: Hematology/Oncology Start: 11-26-2021 End: 11-27-[address] DAVID CAPUTO Facility:[facility] Start: 11-12-2021 End: 11-13-[address] DAVID CAPUTO Facility:[facility] Start: 10-10-2021 End: 10-11-[address] DAVID CAPUTO Facility:[facility] Start: 07-02-2021 Rx Renewal Irving Garcia n DO Work Phone: [facility] 250 DO Work Phone: Start: 09-30-2017 End: 10-09-2017 Evaluation and management of inpatient MICHAEL TOVAR [facility] Start: 09-28-2017 Ambulatory MAU DUFFY Facility: [id number] Start: 09-24-2017 Ambulatory MICHAEL TOVAR [facility] Start: 08-14-2017 End: 09-01-2017 Evaluation and management of inpatient MICHAEL CEDILLO) [facility] Procedures Date Procedure Procedure Detail Performing Clinician Start: 10-10-[address] DAVID CAPUTO Comment on above: Performed By: #### PSASC #### [facility] [address] [place] [address] Dr. Mel Barrientos Start: 01-26-2020 Total colonoscopy David Caputo Work Phone: Start: 12-12-2019 Adult depression screening assessment Zahra Buitrago MD Work Phone: Cholecystectomy David valadez Work Phone: Esophagogastroduodenoscopy M axel Caputo Work Phone: History of percutane ous transluminal coronary angioplasty History of PTCA David Caputo Work Phone: Percutaneous translu jeremias coronary angioplasty David Caputo Work Phone: Screening for malign ant neoplasm of prostate David Harshal Other Plan of Treatment Date Care Activity Detail Author Start: 10-10-2026 PROSTATE CANCER SCRE ENING DISCUSSION PROSTATE CANCER SCREENING DISCUSSION [facility] Start: 03-11-2026 Diabetes Screening Diabetes Screenin g [facility] Start: 02-19-2026 DIABETES SCREEN DIABETES SCREEN [facility] Start: 11-28-2025 DIABETES SCREEN DIABETES SCREEN [facility] Start: 10-03-2025 DIABETES SCREEN DIABETES SCREEN [facility] Start: 08-08-2025 DIABETES SCREEN DIABETES SCREEN [facility] Start: 07-03-2025 DIABETES SCREEN DIABETES SCREEN [facility] Start: 06-06-2025 DIABETES SCREEN DIABETES SCREEN [facility] Start: 05-08-2025 DIABETES SCREEN DIABETES SCREEN [facility] Start: 04-03-2025 DIABETES SCREEN DIABETES SCREEN [facility] Start: 03-06-2025 DIABETES SCREEN DIABETES SCREEN [facility] Start: 02-06-2025 DIABETES SCREEN DIABETES SCREEN [facility] Start: 09-17-2023 FUV, Provider: Irving Abreu, Status: Pen, Time: 10:50 AM FUV, Provider: Irving Abreu, Status: Cosme, Time: 10:[address] [facility] 250 DO Work Phone: Start: 06-29-2023 End: 08-29-2023 Cancer Ag 19-9 [Units/volume] in Serum or Plasma CA 19-9 BLD Lab Routine Cancer of ampulla of Vater (HCC) Anemia due to vitamin B12 deficiency, unspecified B12 deficiency type Severe protein-calorie malnutrition (HCC) Expected: 06/29/2023 (Approximate), Expires: 08/29/2023 [facility] Work Phone: Comment on above: Expected: 06/29/2023 (Approximate), Expires: 08/29/2023 Start: 06-29-2023 End: 03-16-2024 CBC W Auto Differential panel - Blood CBC + DIFF Lab Routine Cancer of ampulla of Vater (HCC) Anemia due to vitamin B12 deficiency, unspecified B12 deficiency type Severe protein-calorie malnutrition (HCC) Expected: 06/29/2023 (Approximate), Expires: 03/16/2024 [facility] Work Phone: Comment on above: Expected: 06/29/2023 (Approximate), Expires: 03/16/2024 Start: 06-29-2023 End: 03-16-2024 Cobalamin (Vitamin B12) [Mass/volume] in Serum or Plasma VITAMIN B12 BLOOD Lab Routine Cancer of ampulla of Vater (HCC) Anemia due to vitamin B12 deficiency, unspecified B12 deficiency type Severe protein-calorie malnutrition (HCC) Expected: 06/29/2023 (Approximate), Expires: 03/16/2024 [facility] Work Phone: Comment on above: Expected: 06/29/2023 (Approximate), Expires: 03/16/2024 Start: 06-29-2023 End: 03-16-2024 Comprehensive metabolic 2000 panel - Serum or Plasma COMP METABOLIC PANEL Lab Routine Cancer of ampulla of Vater (HCC) Anemia due to vitamin B12 deficiency, unspecified B12 deficiency type Severe protein-calorie malnutrition (HCC) Expected: 06/29/2023 (Approximate), Expires: 03/16/2024 [facility] Work Phone: Comment on above: Expected: 06/29/2023 (Approximate), Expires: 03/16/2024 Start: 06-29-2023 End: 04-14-2024 Ct abdomen & pelvis w/contrast material CT ABD/PEL W IVCON Radiology Routine Cancer of ampulla of Vater (HCC) Anemia due to vitamin B12 deficiency, unspecified B12 deficiency type Severe protein-calorie malnutrition (HCC) Expected: 06/29/2023 (Approximate), Expires: 04/14/2024 [facility] Work Phone: Comment on above: Expected: 06/29/2023 (Approximate), Expires: 04/14/2024 Start: 06-29-2023 End: 04-14-2024 CT CHEST W IVCON CT CHEST W IVCON Radiology Routine Cancer of ampulla of Vater (HCC) Anemia due to vitamin B12 deficiency, unspecified B12 deficiency type Severe protein-calorie malnutrition (HCC) Expected: 06/29/2023 (Approximate), Expires: 04/14/2024 [facility] Work Phone: Comment on above: Expected: 06/29/2023 (Approximate), Expires: 04/14/2024 Start: 06-29-2023 End: 03-16-2024 Ferritin [Mass/volume] in Serum or Plasma FERRITIN BLD Lab Routine Cancer of ampulla of Vater (HCC) Anemia due to vitamin B12 deficiency, unspecified B12 deficiency type Severe protein-calorie malnutrition (HCC) Expected: 06/29/2023 (Approximate), Expires: 03/16/2024 [facility] Work Phone: Comment on above: Expected: 06/29/2023 (Approximate), Expires: 03/16/2024 Start: 06-29-2023 End: 03-16-2024 Folate [Mass/volume] in Serum or Plasma FOLATE SERUM Lab Routine Cancer of ampulla of Vater (HCC) Anemia due to vitamin B12 deficiency, unspecified B12 deficiency type Severe protein-calorie malnutrition (HCC) Expected: 06/29/2023 (Approximate), Expires: 03/16/2024 [facility] Work Phone: Comment on above: Expected: 06/29/2023 (Approximate), Expires: 03/16/2024 Start: 06-29-2023 End: 03-16-2024 Iron and Iron binding capacity panel - Serum or Plasma IRON + TIBC Lab Routine Cancer of ampulla of Vater (HCC) Anemia due to vitamin B12 deficiency, unspecified B12 deficiency type Severe protein-calorie malnutrition (HCC) Expected: 06/29/2023 (Approximate), Expires: 03/16/2024 [facility] Work Phone: Comment on above: Expected: 06/29/2023 (Approximate), Expires: 03/16/2024 Start: 03-11-2023 End: 05-11-2023 Cancer Ag 19-9 [Units/volume] in Serum or Plasma CA 19-9 BLD Lab Routine Cancer of ampulla of Vater (HCC) Expected: 03/11/2023 (Approximate), Expires: 05/11/2023 [facility] Work Phone: Comment on above: Expected: 03/11/2023 (Approximate), Expires: 05/11/2023 Start: 03-11-2023 End: 03-05-2024 CBC W Auto Differential panel - Blood CBC + DIFF Lab Routine Cancer of ampulla of Vater (HCC) Expected: 03/11/2023 (Approximate), Expires: 03/05/2024 [facility] Work Phone: Comment on above: Expected: 03/11/2023 (Approximate), Expires: 03/05/2024 Start: 03-11-2023 End: 03-05-2024 Cobalamin (Vitamin B12) [Mass/volume] in Serum or Plasma VITAMIN B12 BLOOD Lab Routine Cancer of ampulla of Vater (HCC) Expected: 03/11/2023 (Approximate), Expires: 03/05/2024 [facility] Work Phone: Comment on above: Expected: 03/11/2023 (Approximate), Expires: 03/05/2024 Start: 03-11-2023 End: 03-05-2024 Comprehensive metabolic 2000 panel - Serum or Plasma COMP METABOLIC PANEL Lab Routine Cancer of ampulla of Vater (HCC) Expected: 03/11/2023 (Approximate), Expires: 03/05/2024 [facility] Work Phone: Comment on above: Expected: 03/11/2023 (Approximate), Expires: 03/05/2024 Start: 03-11-2023 End: 03-05-2024 Ferritin [Mass/volume] in Serum or Plasma FERRITIN BLD Lab Routine Cancer of ampulla of Vater (HCC) Expected: 03/11/2023 (Approximate), Expires: 03/05/2024 [facility] Work Phone: Comment on above: Expected: 03/11/2023 (Approximate), Expires: 03/05/2024 Start: 03-11-2023 End: 03-05-2024 Folate [Mass/volume] in Serum or Plasma FOLATE SERUM Lab Routine Cancer of ampulla of Vater (HCC) Expected: 03/11/2023 (Approximate), Expires: 03/05/2024 [facility] Work Phone: Comment on above: Expected: 03/11/2023 (Approximate), Expires: 03/05/2024 Start: 03-11-2023 End: 03-05-2024 Iron and Iron binding capacity panel - Serum or Plasma IRON + TIBC Lab Routine Cancer of ampulla of Vater (HCC) Expected: 03/11/2023 (Approximate), Expires: 03/05/2024 [facility] Work Phone: Comment on above: Expected: 03/11/2023 (Approximate), Expires: 03/05/2024 Start: 03-05-2023 End: 03-20-[address] attenuation skull base mid-thigh NM PET/CT SKULL-THIGH INITIAL Radiology Routine Cancer of ampulla of Vater (HCC) Expected: 03/05/2023 (Approximate), Expires: 03/20/2024 [facility] Work Phone: Comment on above: Expected: 03/05/2023 (Approximate), Expires: 03/20/2024 Start: 02-27-2023 Covid-19 Vaccine () Covid-19 Vaccine () [facility] Start: 02-27-2023 Influenza vaccination C [facility] Start: 02-19-2023 End: 02-18-2024 CBC W Auto Differential panel - Blood CBC + DIFF Lab Routine Anemia due to vitamin B12 deficiency, unspecified B12 deficiency type Expected: 02/19/2023 (Approximate), Expires: 02/18/2024 [facility] Work Phone: Comment on above: Expected: 02/19/2023 (Approximate), Expires: 02/18/2024 Start: 02-19-2023 End: 02-18-2024 Cobalamin (Vitamin B12) [Mass/volume] in Serum or Plasma VITAMIN B12 BLOOD Lab Routine Anemia due to vitamin B12 deficiency, unspecified B12 deficiency type Expected: 02/19/2023 (Approximate), Expires: 02/18/2024 [facility] Work Phone: Comment on above: Expected: 02/19/2023 (Approximate), Expires: 02/18/2024 Start: 02-19-2023 End: 02-18-2024 Comprehensive metabolic 2000 panel - Serum or Plasma COMP METABOLIC PANEL Lab Routine Anemia due to vitamin B12 deficiency, unspecified B12 deficiency type Expected: 02/19/2023 (Approximate), Expires: 02/18/2024 [facility] Work Phone: Comment on above: Expected: 02/19/2023 (Approximate), Expires: 02/18/2024 Start: 02-19-2023 End: 02-18-2024 Ferritin [Mass/volume] in Serum or Plasma FERRITIN BLD Lab Routine Anemia due to vitamin B12 deficiency, unspecified B12 deficiency type Expected: 02/19/2023 (Approximate), Expires: 02/18/2024 [facility] Work Phone: Comment on above: Expected: 02/19/2023 (Approximate), Expires: 02/18/2024 Start: 02-19-2023 End: 02-18-2024 Folate [Mass/volume] in Serum or Plasma FOLATE SERUM Lab Routine Anemia due to vitamin B12 deficiency, unspecified B12 deficiency type Expected: 02/19/2023 (Approximate), Expires: 02/18/2024 [facility] Work Phone: Comment on above: Expected: 02/19/2023 (Approximate), Expires: 02/18/2024 Start: 02-19-2023 End: 02-18-2024 Iron and Iron binding capacity panel - Serum or Plasma IRON + TIBC Lab Routine Anemia due to vitamin B12 deficiency, unspecified B12 deficiency type Expected: 02/19/2023 (Approximate), Expires: 02/18/2024 [facility] Work Phone: Comment on above: Expected: 02/19/2023 (Approximate), Expires: 02/18/2024 Start: 01-27-2023 Insulin C-peptide measurement [facility] Start: 01-07-2023 FUV, Provider: Irving Abreu, Status: Pen, Time: 10:20 AM FUV, Provider: Irving Abreu, Status: Pen, Time: 10:20 AM [facility] 250 DO Work Phone: Start: 08-14-2022 Pneumococcal Vaccine : 65+ (3 - PPSV23 or PCV20) Pneumococcal Vaccine: 65+ (3 - PPSV23 or PCV20) [facility] Start: 08-14-2022 PNEUMOCOCCAL: 65+ (#3) PNEUMOCOCCAL: 65+ (#3) [facility] Start: 08-14-2022 PNEUMOCOCCAL: 65+ (3 - PPSV23 if available, else PCV20) PNEUMOCOCCAL: 65+ (3 - PPSV23 if available, else PCV20) [facility] Start: 08-14-2022 PNEUMOCOCCAL: 65+ (3 - PPSV23 or PCV20) PNEUMOCOCCAL: 65+ (3 - PPSV23 or PCV20) [facility] Start: 07-04-2022 End: 09-03-2022 Cancer Ag 19-9 [Units/volume] in Serum or Plasma CA 19-9 BLD Lab Routine Cancer of ampulla of Vater (HCC) Expected: 07/04/2022 (Approximate), Expires: 09/03/2022 [facility] Work Phone: Comment on above: Expected: 07/04/2022 (Approximate), Expires: 09/03/2022 Start: 07-04-2022 End: 06-06-2023 CBC W Auto Differential panel - Blood CBC + DIFF Lab Routine Anemia due to vitamin B12 deficiency, unspecified B12 deficiency type Expected: 07/04/2022 (Approximate), Expires: 06/06/2023 [facility] Work Phone: Comment on above: Expected: 07/04/2022 (Approximate), Expires: 06/06/2023 Start: 07-04-2022 End: 06-06-2023 Cobalamin (Vitamin B12) [Mass/volume] in Serum or Plasma VITAMIN B12 BLOOD Lab Routine Anemia due to vitamin B12 deficiency, unspecified B12 deficiency type Expected: 07/04/2022 (Approximate), Expires: 06/06/2023 [facility] Work Phone: Comment on above: Expected: 07/04/2022 (Approximate), Expires: 06/06/2023 Start: 07-04-2022 End: 06-06-2023 Comprehensive metabolic 2000 panel - Serum or Plasma COMP METABOLIC PANEL Lab Routine Anemia due to vitamin B12 deficiency, unspecified B12 deficiency type Expected: 07/04/2022 (Approximate), Expires: 06/06/2023 [facility] Work Phone: Comment on above: Expected: 07/04/2022 (Approximate), Expires: 06/06/2023 Start: 07-04-2022 End: 07-06-2023 Ct abdomen & pelvis w/contrast material CT ABD/PEL W IVCON Radiology Routine Interstitial pulmonary disease (HCC) Cancer of ampulla of Vater (HCC) Anemia due to vitamin B12 deficiency, unspecified B12 deficiency type Expected: 07/04/2022 (Approximate), Expires: 07/06/2023 [facility] Work Phone: Comment on above: Expected: 07/04/2022 (Approximate), Expires: 07/06/2023 Start: 07-04-2022 End: 07-06-2023 CT CHEST W IVCON CT CHEST W IVCON Radiology Routine Interstitial pulmonary disease (HCC) Cancer of ampulla of Vater (HCC) Anemia due to vitamin B12 deficiency, unspecified B12 deficiency type Expected: 07/04/2022 (Approximate), Expires: 07/06/2023 [facility] Work Phone: Comment on above: Expected: 07/04/2022 (Approximate), Expires: 07/06/2023 Start: 07-04-2022 DIABETES SCREEN DIABETES SCREEN [facility] Start: 07-04-2022 End: 06-06-2023 Ferritin [Mass/volume] in Serum or Plasma FERRITIN BLD Lab Routine Anemia due to vitamin B12 deficiency, unspecified B12 deficiency type Expected: 07/04/2022 (Approximate), Expires: 06/06/2023 [facility] Work Phone: Comment on above: Expected: 07/04/2022 (Approximate), Expires: 06/06/2023 Start: 07-04-2022 End: 06-06-2023 Folate [Mass/volume] in Serum or Plasma FOLATE SERUM Lab Routine Anemia due to vitamin B12 deficiency, unspecified B12 deficiency type Expected: 07/04/2022 (Approximate), Expires: 06/06/2023 [facility] Work Phone: Comment on above: Expected: 07/04/2022 (Approximate), Expires: 06/06/2023 Start: 07-04-2022 End: 06-06-2023 Iron and Iron binding capacity panel - Serum or Plasma IRON + TIBC Lab Routine Anemia due to vitamin B12 deficiency, unspecified B12 deficiency type Expected: 07/04/2022 (Approximate), Expires: 06/06/2023 [facility] Work Phone: Comment on above: Expected: 07/04/2022 (Approximate), Expires: 06/06/2023 Start: 06-29-2022 ADVANCE DIRECTIVE DISCUSSION ADVANCE DIRECTIVE DISCUSSION [facility] Start: 06-29-2022 DEPRESSION ASSESSMENT DEPRESSION ASS ESSMENT [facility] Start: 2022 ADVANCE DIRECTIVE DISCUSSION ADVANCE DIRECTIVE DISCUSSION [facility] Start: 05-08-2022 End: 04-10-2023 CBC W Auto Differential panel - Blood CBC + DIFF Lab Routine Iron deficiency anemia, unspecified iron deficiency anemia type Anemia due to vitamin B12 deficiency, unspecified B12 deficiency type Expected: 05/08/2022 (Approximate), Expires: 04/10/2023 [facility] Work Phone: Comment on above: Expected: 05/08/2022 (Approximate), Expires: 04/10/2023 Start: 05-08-2022 End: 04-10-2023 Cobalamin (Vitamin B12) [Mass/volume] in Serum or Plasma VITAMIN B12 BLOOD Lab Routine Iron deficiency anemia, unspecified iron deficiency anemia type Anemia due to vitamin B12 deficiency, unspecified B12 deficiency type Expected: 05/08/2022 (Approximate), Expires: 04/10/2023 [facility] Work Phone: Comment on above: Expected: 05/08/2022 (Approximate), Expires: 04/10/2023 Start: 05-08-2022 End: 04-10-2023 Comprehensive metabolic 2000 panel - Serum or Plasma COMP METABOLIC PANEL Lab Routine Iron deficiency anemia, unspecified iron deficiency anemia type Anemia due to vitamin B12 deficiency, unspecified B12 deficiency type Expected: 05/08/2022 (Approximate), Expires: 04/10/2023 [facility] Work Phone: Comment on above: Expected: 05/08/2022 (Approximate), Expires: 04/10/2023 Start: 05-08-2022 End: 04-10-2023 Ferritin [Mass/volume] in Serum or Plasma FERRITIN BLD Lab Routine Iron deficiency anemia, unspecified iron deficiency anemia type Anemia due to vitamin B12 deficiency, unspecified B12 deficiency type Expected: 05/08/2022 (Approximate), Expires: 04/10/2023 [facility] Work Phone: Comment on above: Expected: 05/08/2022 (Approximate), Expires: 04/10/2023 Start: 05-08-2022 End: 04-10-2023 Folate [Mass/volume] in Serum or Plasma FOLATE SERUM Lab Routine Iron deficiency anemia, unspecified iron deficiency anemia type Anemia due to vitamin B12 deficiency, unspecified B12 deficiency type Expected: 05/08/2022 (Approximate), Expires: 04/10/2023 [facility] Work Phone: Comment on above: Expected: 05/08/2022 (Approximate), Expires: 04/10/2023 Start: 05-08-2022 End: 04-10-2023 Iron and Iron binding capacity panel - Serum or Plasma IRON + TIBC Lab Routine Iron deficiency anemia, unspecified iron deficiency anemia type Anemia due to vitamin B12 deficiency, unspecified B12 deficiency type Expected: 05/08/2022 (Approximate), Expires: 04/10/2023 [facility] Work Phone: Comment on above: Expected: 05/08/2022 (Approximate), Expires: 04/10/2023 Start: 04-10-2022 End: 04-10-2023 CBC W Auto Differential panel - Blood CBC + DIFF Lab Routine Iron deficiency anemia, unspecified iron deficiency anemia type Anemia due to vitamin B12 deficiency, unspecified B12 deficiency type Macrocytosis Expected: 04/10/2022, Expires: 04/10/2023 [facility] Work Phone: Comment on above: Expected: 04/10/2022 , Expires: 04/10/2023 Start: 04-10-2022 End: 04-10-2023 Cobalamin (Vitamin B12) [Mass/volume] in Serum or Plasma VITAMIN B12 BLOOD Lab Routine Iron deficiency anemia, unspecified iron deficiency anemia type Anemia due to vitamin B12 deficiency, unspecified B12 deficiency type Macrocytosis Expected: 04/10/2022, Expires: 04/10/2023 [facility] Work Phone: Comment on above: Expected: 04/10/2022 , Expires: 04/10/2023 Start: 04-10-2022 End: 04-10-2023 Comprehensive metabolic 2000 panel - Serum or Plasma COMP METABOLIC PANEL Lab Routine Iron deficiency anemia, unspecified iron deficiency anemia type Anemia due to vitamin B12 deficiency, unspecified B12 deficiency type Macrocytosis Expected: 04/10/2022, Expires: 04/10/2023 [facility] Work Phone: Comment on above: Expected: 04/10/2022 , Expires: 04/10/2023 Start: 04-10-2022 End: 04-10-2023 Ferritin [Mass/volume] in Serum or Plasma FERRITIN BLD Lab Routine Iron deficiency anemia, unspecified iron deficiency anemia type Anemia due to vitamin B12 deficiency, unspecified B12 deficiency type Macrocytosis Expected: 04/10/2022, Expires: 04/10/2023 [facility] Work Phone: Comment on above: Expected: 04/10/2022 , Expires: 04/10/2023 Start: 04-10-2022 End: 04-10-2023 Folate [Mass/volume] in Serum or Plasma FOLATE SERUM Lab Routine Iron deficiency anemia, unspecified iron deficiency anemia type Anemia due to vitamin B12 deficiency, unspecified B12 deficiency type Macrocytosis Expected: 04/10/2022, Expires: 04/10/2023 [facility] Work Phone: Comment on above: Expected: 04/10/2022 , Expires: 04/10/2023 Start: 04-10-2022 End: 06-10-2022 Haptoglobin [Mass/volume] in Serum or Plasma HAPTOGLOBIN BLD Lab Routine Iron deficiency anemia, unspecified iron deficiency anemia type Anemia due to vitamin B12 deficiency, unspecified B12 deficiency type Macrocytosis Expected: 04/10/2022, Expires: 06/10/2022 [facility] Work Phone: Comment on above: Expected: 04/10/2022 , Expires: 06/10/2022 Start: 04-10-2022 End: 04-10-2023 Iron and Iron binding capacity panel - Serum or Plasma IRON + TIBC Lab Routine Iron deficiency anemia, unspecified iron deficiency anemia type Anemia due to vitamin B12 deficiency, unspecified B12 deficiency type Macrocytosis Expected: 04/10/2022, Expires: 04/10/2023 [facility] Work Phone: Comment on above: Expected: 04/10/2022 , Expires: 04/10/2023 Start: 04-10-2022 End: 06-10-2022 Lactate dehydrogenase [Enzymatic activity/volume] in Serum or Plasma LD LACTATE DEHYDRO Lab Routine Iron deficiency anemia, unspecified iron deficiency anemia type Anemia due to vitamin B12 deficiency, unspecified B12 deficiency type Macrocytosis Expected: 04/10/2022, Expires: 06/10/2022 [facility] Work Phone: Comment on above: Expected: 04/10/2022 , Expires: 06/10/2022 Start: 04-10-2022 End: 06-10-2022 RETIC COUNT RETIC COUNT Lab Routine Iron deficiency anemia, unspecified iron deficiency anemia type Anemia due to vitamin B12 deficiency, unspecified B12 deficiency type Macrocytosis Expected: 04/10/2022, Expires: 06/10/2022 [facility] Work Phone: Comment on above: Expected: 04/10/2022 , Expires: 06/10/2022 Start: 02-27-2022 Influenza vaccination [facility] Start: 02-04-2022 End: 04-06-2022 Cancer Ag 19-9 [Units/volume] in Serum or Plasma CA 19-9 BLD Lab Routine Iron deficiency anemia, unspecified iron deficiency anemia type 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) Expected: 02/04/2022 (Approximate), Expires: 04/06/2022 [facility] Work Phone: Comment on above: Expected: 02/04/2022 (Approximate), Expires: 04/06/2022 Start: 02-04-2022 End: 12-05-2022 Carcinoembryonic Ag [Mass/volume] in Serum or Plasma CEA BLD Lab Routine Iron deficiency anemia, unspecified iron deficiency anemia type 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) Malignant neoplasm of body of pancreas (HCC) Expected: 02/04/2022 (Approximate), Expires: 12/05/2022 [facility] Work Phone: Comment on above: Expected: 02/04/2022 (Approximate), Expires: 12/05/2022 Start: 02-04-2022 End: 12-05-2022 CBC W Auto Differential panel - Blood CBC + DIFF Lab Routine Iron deficiency anemia, unspecified iron deficiency anemia type 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) Expected: 02/04/2022 (Approximate), Expires: 12/05/2022 [facility] Work Phone: Comment on above: Expected: 02/04/2022 (Approximate), Expires: 12/05/2022 Start: 02-04-2022 End: 12-05-2022 Comprehensive metabolic 2000 panel - Serum or Plasma COMP METABOLIC PANEL Lab Routine Iron deficiency anemia, unspecified iron deficiency anemia type 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) Expected: 02/04/2022 (Approximate), Expires: 12/05/2022 [facility] Work Phone: Comment on above: Expected: 02/04/2022 (Approximate), Expires: 12/05/2022 Start: 02-04-2022 End: 01-04-2023 Ct abdomen & pelvis w/contrast material CT ABD/PEL W IVCON Radiology Routine Iron deficiency anemia, unspecified iron deficiency anemia type 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) Expected: 02/04/2022 (Approximate), Expires: 01/04/2023 [facility] Work Phone: Comment on above: Expected: 02/04/2022 (Approximate), Expires: 01/04/2023 Start: 02-04-2022 End: 01-04-2023 Ct thorax w/contrast material CT CHEST W IVCON Radiology Routine Iron deficiency anemia, unspecified iron deficiency anemia type 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) Expected: 02/04/2022 (Approximate), Expires: 01/04/2023 [facility] Work Phone: Comment on above: Expected: 02/04/2022 (Approximate), Expires: 01/04/2023 Start: 01-09-2022 FUV, Provider: Irving Abreu, Status: Pen, Time: 11:15 AM FUV, Provider: Irving Abreu, Status: Pen, Time: 11:15 AM [place] [id number] DO Work Phone: Start: 11-14-2021 COVID-19 VACCINE (4 - Booster for Pfizer series) COVID-19 VACCINE (4 - Booster for Pfizer series) [facility] Start: 09-11-2021 COVID-19 VACCINE (4 - Booster for Pfizer series) COVID-19 VACCINE (4 - Booster for Pfizer series) [facility] Start: 09-11-2021 COVID-19 VACCINE (4 - Pfizer series) COVID-19 VACCINE (4 - Pfizer series) [facility] Start: 06-29-2021 DEPRESSION ASSESSMENT DEPRESSION ASS ESSMENT [facility] Start: 12-11-2020 Adult depression scr eening assessment DEPRESSION SCREENING [facility] Start: 08-14-2018 PNEUMOCOCCAL (2 - PCV) PNEUMOCOCCAL (2 - PCV) [facility] Start: 2012 PROSTATE CANCER SCRE ENING DISCUSSION PROSTATE CANCER SCREENING DISCUSSION [facility] Start: 2007 SHINGRIX VACCINE (1 of 2) URBINA GRIX VACCINE (1 of 2) [facility] Start: 2002 COLOGUARD (FIT-DNA) COLOGUARD (FIT-D NA) [facility] Start: 2002 Colonoscopy COLONOSCOPY [facility] Start: 2002 COLORECTAL CANCER SCREENING COLORECTAL CANCER SCREENING [facility] Start: [address] COLONOGRAPHY [facility] Start: 2002 FECAL OCCULT BLOOD FECAL OCCULT BLOO D [facility] Start: 2002 SIGMOIDOSCOPY SIGMOIDOSCOPY [facility] Start: 1992 Lipid 1996 panel - S brandi or Plasma Lipid Screening [facility] Start: 1992 LIPID SCREEN LIPID SCREEN [facility] Start: 1976 SHINGRIX VACCINE (1 of 2) URBINA GRIX VACCINE (1 of 2) [facility] Start: 1976 Urine microalbumin profile [facility] Start: 1975 HIV SCREENING HIV SCREENING [facility] Start: 1962 COVID-19 VACCINE (#1) COVID-19 VACCI NE (#1) [facility] Start: 1957 ABDOMINAL AORTIC ANE URYSM SCREENING ABDOMINAL AORTIC ANEURYSM SCREENING [facility] End: 03-10-2024 Cancer Ag 19-9 [Units/volume] in Serum or Plasma CA 19-9 BLD Lab Routine Cancer of ampulla of Vater (HCC) Anemia due to vitamin B12 deficiency, unspecified B12 deficiency type Iron deficiency anemia, unspecified iron deficiency anemia type Every 3 weeks for 18 Occurrences starting 03/11/2023 until 03/10/2024 [facility] Work Phone: Comment on above: Every 3 weeks for 18 Occurrences starting 03/11/2023 until 03/10/2024 End: 02-13-2023 CBC W Auto Differential panel - Blood CBC + DIFF Lab Routine Iron deficiency anemia, unspecified iron deficiency anemia type Macrocytosis Every other week for 20 Occurrences starting 02/13/2022 until 02/13/2023 [facility] Work Phone: Comment on above: Every other week for 20 Occurrences starting 02/13/2022 until 02/13/2023 End: 03-10-2024 CBC W Auto Differential panel - Blood CBC + DIFF Lab Routine Cancer of ampulla of Vater (HCC) Anemia due to vitamin B12 deficiency, unspecified B12 deficiency type Iron deficiency anemia, unspecified iron deficiency anemia type Every 3 weeks for 18 Occurrences starting 03/11/2023 until 03/10/2024 [facility] Work Phone: Comment on above: Every 3 weeks for 18 Occurrences starting 03/11/2023 until 03/10/2024 End: 02-13-2023 Cobalamin (Vitamin B12) [Mass/volume] in Serum or Plasma VITAMIN B12 BLOOD Lab Routine Iron deficiency anemia, unspecified iron deficiency anemia type Macrocytosis Every other week for 20 Occurrences starting 02/13/2022 until 02/13/2023 [facility] Work Phone: Comment on above: Every other week for 20 Occurrences starting 02/13/2022 until 02/13/2023 End: 03-10-2024 Cobalamin (Vitamin B12) [Mass/volume] in Serum or Plasma VITAMIN B12 BLOOD Lab Routine Cancer of ampulla of Vater (HCC) Anemia due to vitamin B12 deficiency, unspecified B12 deficiency type Iron deficiency anemia, unspecified iron deficiency anemia type Every 3 weeks for 18 Occurrences starting 03/11/2023 until 03/10/2024 [facility] Work Phone: Comment on above: Every 3 weeks for 18 Occurrences starting 03/11/2023 until 03/10/2024 End: 02-13-2023 Comprehensive metabolic 2000 panel - Serum or Plasma COMP METABOLIC PANEL Lab Routine Iron deficiency anemia, unspecified iron deficiency anemia type Macrocytosis Every other week for 20 Occurrences starting 02/13/2022 until 02/13/2023 [facility] Work Phone: Comment on above: Every other week for 20 Occurrences starting 02/13/2022 until 02/13/2023 End: 03-10-2024 Comprehensive metabolic 2000 panel - Serum or Plasma COMP METABOLIC PANEL Lab Routine Cancer of ampulla of Vater (HCC) Anemia due to vitamin B12 deficiency, unspecified B12 deficiency type Iron deficiency anemia, unspecified iron deficiency anemia type Every 3 weeks for 18 Occurrences starting 03/11/2023 until 03/10/2024 [facility] Work Phone: Comment on above: Every 3 weeks for 18 Occurrences starting 03/11/2023 until 03/10/2024 End: 02-13-2023 Ferritin [Mass/volume] in Serum or Plasma FERRITIN BLD Lab Routine Iron deficiency anemia, unspecified iron deficiency anemia type Macrocytosis Every other week for 20 Occurrences starting 02/13/2022 until 02/13/2023 [facility] Work Phone: Comment on above: Every other week for 20 Occurrences starting 02/13/2022 until 02/13/2023 End: 03-10-2024 Ferritin [Mass/volume] in Serum or Plasma FERRITIN BLD Lab Routine Cancer of ampulla of Vater (HCC) Anemia due to vitamin B12 deficiency, unspecified B12 deficiency type Iron deficiency anemia, unspecified iron deficiency anemia type Every 3 weeks for 18 Occurrences starting 03/11/2023 until 03/10/2024 [facility] Work Phone: Comment on above: Every 3 weeks for 18 Occurrences starting 03/11/2023 until 03/10/2024 End: 02-13-2023 Folate [Mass/volume] in Serum or Plasma FOLATE SERUM Lab Routine Iron deficiency anemia, unspecified iron deficiency anemia type Macrocytosis Every other week for 20 Occurrences starting 02/13/2022 until 02/13/2023 [facility] Work Phone: Comment on above: Every other week for 20 Occurrences starting 02/13/2022 until 02/13/2023 End: 03-10-2024 Folate [Mass/volume] in Serum or Plasma FOLATE SERUM Lab Routine Cancer of ampulla of Vater (HCC) Anemia due to vitamin B12 deficiency, unspecified B12 deficiency type Iron deficiency anemia, unspecified iron deficiency anemia type Every 3 weeks for 18 Occurrences starting 03/11/2023 until 03/10/2024 [facility] Work Phone: Comment on above: Every 3 weeks for 18 Occurrences starting 03/11/2023 until 03/10/2024 End: 02-13-2023 Iron and Iron binding capacity panel - Serum or Plasma IRON + TIBC Lab Routine Iron deficiency anemia, unspecified iron deficiency anemia type Macrocytosis Every other week for 20 Occurrences starting 02/13/2022 until 02/13/2023 [facility] Work Phone: Comment on above: Every other week for 20 Occurrences starting 02/13/2022 until 02/13/2023 End: 03-10-2024 Iron and Iron binding capacity panel - Serum or Plasma IRON + TIBC Lab Routine Cancer of ampulla of Vater (HCC) Anemia due to vitamin B12 deficiency, unspecified B12 deficiency type Iron deficiency anemia, unspecified iron deficiency anemia type Every 3 weeks for 18 Occurrences starting 03/11/2023 until 03/10/2024 [facility] Work Phone: Comment on above: Every 3 weeks for 18 Occurrences starting 03/11/2023 until 03/10/2024 [facility] Immunizations Immunization Date Immunization Notes Care Provider Srin[facility] 06-04-2023 influenza, high dose seasonal, preservative-free David Caputo Other [employer] Other 04-01-2022 Seasonal trivalent influenza vaccine, adjuvanted, preservative free Chair Phelan Work Phone: [facility] 04-01-2022 influenza virus vaccine, unspecified formulation Zahra Buitrago MD Work Phone: [facility] 07-17-2021 COVID-19 vaccine, ag e 12+ yr ([employer] - [facility]) Zahra Buitrago MD Work Phone: [facility] 04-04-2021 AS03 adjuvant Zhane Work Phone: [facility] 04-04-2021 influenza virus vaccine, split virus (incl. purified surface antigen) David Caputo Other [facility] [employer] Other 04-04-2021 Seasonal trivalent influenza vaccine, adjuvanted, preservative free Zahra Buitrago MD Work Phone: [facility] 10-24-2020 COVID-19 vaccine, ag e 12+ yr (P[employer]ZER-BIONTE[employer] - PURPLE TOP) Zahra Buitrago MD Work Phone: [facility] 10-03-2020 COVID-19 vaccine, ag e 12+ yr (P[employer]ION[employer] - PURPLE TOP) Zahra Buitrago MD Work Phone: [facility] 03-29-2020 influenza nasal, unspecified formulation Zhane Work Phone: [facility] 03-29-2020 influenza virus vaccine, unspecified formulation David Caputo Work Phone: [place] [id number] [place] Work Phone: 03-29-2020 influenza, seasonal, injectable Zahra Buitrago MD Work Phone: [facility] 03-22-2020 influenza virus vaccine, split virus (incl. purified surface antigen) David Caputo Other [facility] [employer] Other 03-22-2020 influenza, injectabl e, quadrivalent, contains preservative Zahra Buitrago MD Work Phone: [facility] 05-02-2019 influenza, injectabl e, quadrivalent, contains preservative Zahra Buitrago MD Work Phone: [facility] 03-29-2019 influenza nasal, unspecified formulation [facility] [place] Work Phone: [facility] 03-29-2019 influenza virus vaccine, unspecified formulation David Caputo Work Phone: [place] [id number] DO Work Phone: 03-29-2019 influenza, seasonal, injectable Zahra Buitrago MD Work Phone: [facility] 03-29-2018 influenza nasal, unspecified formulation Chair Hartusky Work Phone: [facility] 03-29-2018 influenza virus vaccine, unspecified formulation David Caputo Work Phone: [place] [id number] DO Work Phone: 02-14-2018 influenza, injectabl e, quadrivalent, preservative free Zahra Buitrago MD Work Phone: [facility] 09-02-2017 tuberculin skin test ; unspecified formulation Dr. Adriane Espitia [facility] 09-01-2017 influenza, high-dose seasonal, quadrivalent, 0.7mL dose, preservative free Dr. Adriane Espitia [facility] 09-01-[address] Avilez Espitia [facility] 08-14-2017 pneumococcal polysaccharide vaccine, 23 valent Zahra Buitrago MD Work Phone: [facility] Work Phone: 04-22-2017 influenza virus vaccine, split virus (incl. purified surface antigen) David Caputo Other [employer] [facility] [employer] Other 04-13-2017 influenza, injectabl e, quadrivalent, contains preservative Zahra Buitrago MD Work Phone: [facility] 03-29-2017 influenza nasal, unspecified formulation Chair Phelan Work Phone: [facility] 03-29-2017 influenza virus vaccine, unspecified formulation David Caputo Work Phone: [place] [id number] DO Work Phone: 03-03-2017 influenza, injectabl e, quadrivalent, preservative free Zahra Buitrago MD Work Phone: [facility] 07-30-2016 pneumococcal conjuga te vaccine, 13 valent David Caputo Work Phone: [facility] 04-29-2011 influenza nasal, unspecified formulation Chair Zhane Work Phone: [facility] 04-29-2011 influenza virus vaccine, unspecified formulation David Caputo Work Phone: [facility] [address] DO Work Phone: Payers Date Payer Category Payer Unknown [id number] 2023 Self-pay [id number] 2023 Unknown [id number] 2021 [place] [id number] 2021-Present [phone] [address] [place] [address] Medicaid [id number] 2021 Medicaid MEDICAID [facility] MEDICAID [id number] 2021-Present [phone] [address] [place] [address] Medicaid [id number] 2020 Medicare MEDICARE MEDICAR E A AND B [id number] 2020-Present [phone] [place] [address] Medicare [id number] 2020 Medicare [id number] 1959 Medicaid [id number] 1959 Medicare [id number] 1957 Unknown [id number] 593 1957 Unknown [id number]. 593 1957 Unknown [id number]. 593 1957 Unknown [id number] [id number]. 593 1957 Unknown [id number] [id number]. 593 1957 Unknown [id number] [id number]. 593 1957 Unknown [id number]. 356 1957 Unknown [id number] 356 Private Health Insurance [id number] Private Health Insurance [facility] [id number] Unknown Unknown [employer] BC/BS [id number] Unknown [id number] Unknown [id number] 531 Social History Date Type Detail Facility Start: 08-13-2017 End: 02-13-2022 Tobacco smoking status NHIS Ex-smoker [facility] End: 06-29-2010 History of tobacco use Current smoker [facility] End: 06-29-2010 History of tobacco use Cigarette Smoker [facility] Start: 08-13-2017 End: 02-13-2022 Tobacco use and exposure Smokeless tobacco non-user [facility] Start: 12-03-2021 End: 03-11-2023 Alcohol intake Current drinker of alcohol (finding) [facility] Start: 12-03-2021 End: 10-31-2022 Alcohol intake [facility] Start: 08-13-2017 History SDOH Alcohol Comment occasional beer [facility] Start: 1955 Sex Assigned At Not on file C [facility] Start: 11-25-2021 End: 05-08-2022 Exposure to SARS-CoV-2 (event) Not sure [facility] Start: 10-31-2022 End: 11-28-2022 Sex Assigned At [facility] History of tobacco use Passive smoker [facility] Adult Depression Screening Assessment 0 [facility] Start: 1955 Sex Assigned At Male F [facility] Start: 01-27-2023 Unknown if ever smoked [facility] Medical Equipment Procedure Code Equipment Code Equipment Origin al Text Equipment Identifier Dates [facility] [id number] - Start: 03-17-2023 Clinical Notes 02-28-2020 to 07-14-2023 Note Date & Type Note Facility 07-14-2023 History general N arrative - Reported Type Medical History BMI 20.0-20.9, adult Medical History Paroxysmal atrial fibrillation Medical History Lumbar pain Medical History Essential hypertension Medical History Tachypnea on examination Medical History Dyspnea on exertion Medical History Anxiety, generalized Medical History Anemia, macrocytic Medical History Elevated LFTs Medical History Fatigue Medical History 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 Surgical History heart stent 2010 Surgical History stomach ulcer 2017 Surgical History gallbladder 2018 Surgical History whipple 2017 Surgical History colonoscopy 2019 Hospitalization History SEE SURGICAL HX [facility] Other 01-16-2024 Evaluation note* Encounter Date Diagnosis Assessment Notes Treatment Notes Treatment Clinical Notes Jun, Anxiety disorder, unspecified (ICD-10 - F41.9) [facility] Other 01-02-2024 Evaluation note* Encounter Date Diagnosis Assessment Notes Treatment Notes Treatment Clinical Notes Jun, Anxiety, generalized (ICD-10 - F41.1) [facility] Other 12-18-2023 History general Narrative - Reported* Type Description Date Medical History BMI 20.0-20.9, adult Medical History Paroxysmal atrial fibrillation Medical History Lumbar pain Medical History Essential hypertension Medical History Tachypnea on examination Medical History Dyspnea on exertion Medical History Anxiety, generalized Medical History Anemia, macrocytic Medical History Elevated LFTs Medical History Fatigue Medical History 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 Surgical History heart stent 2010 Surgical History stomach ulcer 2017 Surgical History gallbladder 2018 Surgical History whipple 2017 Surgical History colonoscopy 2019 Hospitalization History SEE SURGICAL HX [facility] Other 12-07-2023 Evaluation note* Encounter Date Diagnosis Assessment Notes Treatment Notes Treatment Clinical Notes May, Type 2 diabetes mellitus without complication, without long-term current use of insulin (ICD-10 - E11.9) Goal: Maintain A1c below 7.0% by being compliant with prescribed medications, diet & exercise plan prior to f/u visit. Laboratory results were reviewed with patient. May, Essential hypertension (ICD-10 - I10) Blood pressure remains well controlled at this time. Denies cardiac symptoms. Shows no signs or symptoms or poor control. Patient to continue with above medication and we will continue to monitor. Advised to pay attention to body and symptoms. Any developing patterns. Stay well hydrated. May, Pain in right hand (ICD-10 - M79.641) Assess labs for causes of neuropathy May, Pain in left hand (ICD-10 - M79.642) [facility] Other 11-24-2023 Evaluation note* Encounter Date Diagnosis Assessment Notes Treatment Notes Treatment Clinical Notes Apr, Anxiety disorder, unspecified (ICD-10 - F41.9) [facility] Other 11-21-2023 Evaluation note* Encounter Date Diagnosis Assessment Notes Treatment Notes Treatment Clinical Notes Apr, Anxiety, generalized (ICD-10 - F41.1) [facility] Other 11-08-2023 Evaluation note* Encounter Date Diagnosis Assessment Notes Treatment Notes Treatment Clinical Notes Apr, Anxiety, generalized (ICD-10 - F41.1) [facility] Other 10-19-2023 History general Narrative - Reported* Type Description Date Medical History BMI 20.0-20.9, adult Medical History Paroxysmal atrial fibrillation Medical History Lumbar pain Medical History Essential hypertension Medical History Tachypnea on examination Medical History Dyspnea on exertion Medical History Anxiety, generalized Medical History Anemia, macrocytic Medical History Elevated LFTs Medical History Fatigue Medical History 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 Surgical History heart stent 2010 Surgical History stomach ulcer 2017 Surgical History gallbladder 2018 Surgical History whipple 2018 Surgical History colonoscopy 2019 Hospitalization History SEE SURGICAL HX [facility] Other 10-12-2023 Nurse Note* Homa Powell Ma - 04/09/2023 2:56 PM EDT Patient Identification confirmed: yes. Injection given and documented on MAR per provider order. Homa Powell Ma [facility] History general Narrative - Reported* Type Description Date Medical History BMI 20.0-20.9, adult Medical History Paroxysmal atrial fibrillation Medical History Lumbar pain Medical History Essential hypertension Medical History Tachypnea on examination Medical History Dyspnea on exertion Medical History Anxiety, generalized Medical History Anemia, macrocytic Medical History Elevated LFTs Medical History Fatigue Medical History 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 Surgical History heart stent 2010 Surgical History stomach ulcer 2017 Surgical History gallbladder 2018 Surgical History whipple 2018 Surgical History colonoscopy 2019 Hospitalization History SEE SURGICAL [facility] Other 10-10-2023 Evaluation note* Encounter Date Diagnosis Assessment Notes Treatment Notes Treatment Clinical Notes Mar, Anxiety, generalized (ICD-10 - F41.1) [facility] Other 10-02-2023 Miscellaneous Notes* Telephone Encounter - Rola Gordon APRN.CNP - 03/30/2023 4:04 PM EDT The following approved medication requests have been transmitted electronically. Requested Prescriptions Signed Prescriptions Disp Refills folic acid 1 mg tablet 90 tablet 3 Sig: Take 1 tablet by mouth once daily. Authorizing Provider: ROLA GORDON APRN.CNP [facility] Evaluation note* Encounter Date Diagnosis Assessment Notes Treatment Notes Treatment Clinical Notes Feb, Anxiety disorder, unspecified (ICD-10 - F41.9) [facility] Other 09-18-2023 Miscellaneous Notes* Telephone Encounter - Adriana Dupree - 03/16/2023 2:18 PM EDT Patient is scheduled for his CT CAP on 07/01/23 and his follow-up with CHRIS on 07/08/23. Patient's appointments were mailed on 03/16/23. Adriana Waldron * Telephone Encounter - Susan Jones RN - 03/16/2023 1:11 PM EDT Pt's daughter notified and verbalizes understanding. Clerical: Please schedule pt as noted below. Daughter asks that you mail the appointment reminder to the pt's home. Address on file verified w/ daughter. Susan Jones RN * Telephone Encounter - Zahra Buitrago MD - 03/16/2023 1:04 PM EDT PET was negative! Repeat CT scans in 15 weeks - labs RTC in 16 weeks * Telephone Encounter - Cassandra Hernandez RN - 03/16/2023 8:18 AM EDT CHRIS/HM: Please review PET results and advise Cassandra Hernandez RN * Telephone Encounter - Mile Sharma - 03/11/2023 11:12 AM EDT 3. Triage to please call PET/CT results next week a. Determine follow up based on results. documented [facility]* Haley Miller MA - 03/11/2023 11:21 AM EDT Patient Identification confirmed: yes. Injection given and documented on AUG per provider order. Haley Miller MA documented in [facility] encounterC[facility]23 Instructions* Patient Instructions* Zahra Buitrago MD - 03/11/2023 11:09 AM EDT B12 shot today and every 4 weeks. Patient will continue folic acid 1 mg daily as Rx'd. Triage to please call PET/CT results next week Determine follow up based on results. continue following with Dr. Caputo for DMII management. documented in this encounterC[facility]09[facility]23 History of Present illness Narrative* Zahra Buitrago MD - 03/11/2023 10:45 AM EDT Images from the original note were not included. NAME: Rocio Jackson CLINIC NO.: [id number] DATE OF SERVICE: March 11, 2023 (Iftikhar) Some elements in this clinic note that are critical to medical decision making have been carefully reviewed and included from a prior clinic note dated: February 19, 2023 (Iftikhar) Referring Provider: Dr. Vanessa Bejarano Additional Clinicians involved in Rocio Jackson's care: Dr. David Caputo CC: Follow up on anemia. 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 Completed adjuvant chemotherapy in December 2017 with Xeloda and Gemzar. No evidence of recurrent disease on CT imaging from July 2019. VANNESA on review of his most recent scans. Anemia, unspecified type He does have a history of iron deficiency anemia requiring IV iron in 2018. At this time he has macrocytic anemia. Today we discussed his positive KERRI and his inappropriately low/normal erythropoietin. I offered him rheumatology consult he wanted to wait for now. I also offered him regular Aranesp. He would prefer to monitor for now given his current hemoglobin level. We will continue to monitor his hemoglobin closely every 2 months for now. He was instructed to notify us immediately if he has any black or bloody stools. He has significant components of anemia of chronic disease. Doing well on B12 and folate replacement. PLAN: B12 shot today and every 4 weeks. Patient will continue folic acid 1 mg daily as Rx'd. Triage to please call PET/CT results next week Determine follow up based on results. continue following with Dr. Caputo for DMII management. 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 H/O iron deficiency anemia 3. Folate deficiency anemia 4. B12 deficiency anemia Treatment History: 1. Pancreatic duodenectomy 09/30/2017 2. Adjuvant chemotherapy with Gemzar and Xeloda (Per Dr. Reyez) 11/13/17-01/22/18 3. IV iron given in April 2018 HPI: Updated Visit, March 11, 2023: Looks better today Reviewed PET images but given surgical changes and dilated bowels (normal for him) will need final read to make any recommendations. Will continue supporting him with B12 shots and he will continue taking folic. Updated Visit, February 19, 2023: Doesn't look as strong as he usually does. But blood sugar is better . Weight is down. Is watching his sugars more closely Family says no open wounds. CTCAP done late December in [place] concerning for possible metastatic disease. Updated Visit, November 28, 2022: Rocio returns with his son today. Blood sugars are really high. Will need this addressed. Updated Visit, October 03, 2022: Rocio Torressch returns for follow-up. He is accompanied by his son. Since his last visit there has been no significant medical changes. He denies any signs of bleeding and abnormal blood loss. He offersno particular new complaints today. Updated Visit, August 08, 2022: Rocio returns with his son Joaquin - his blood sugar was noted to be elevated significantly but he just ate ice cream. Recommended he follow with his PCP. Hgb improving. Will continue following as noted above. Updated Visit, July 03, 2022: Stable clinically. CT CAP done earlier today is negative for metastatic recurrence. Updated Visit, June 06, 2022: Rocio is 67 years old and returns with his son Joaquin. Worked at a [employer]. Doing well overall is at his baseline. Anemia unchanged. Not sure B12 shots are impacting him significantly - will re-visit next visit. Updated Visit, May 08, 2022: H/H improved with addition of folic acid as well as iron infusion. Continue B12 shots Still feels sluggish yet improved overall. Iron studies pending today. No abdominal pain or nausea. Updated Visit, April 10, 2022: Rocio is 66 years old and returns with his son for review of laboratories. He has had worsening anemia since his last visit a month ago and notes that he had some blood in his underwear 3-4 days ago. I am not sure from what he tells me that he is actively bleeding or not. Chronic left sided low back pain. TIBC and iron is low - unsure if he's some underlying inflammatory problem causing elevated ferritin. Updated Visit, March 13, 2022: Rocio Jackson returns for scheduled follow-up. Overall he is feeling fairly well. He denies any obvious signs of bleeding. No black dark stools. He denies any abnormal bruising. He denies cough and shortness of breath. He states that he is breathing heavily due to anxiety. He has not yet picked up the prescription for folic acid. Updated Visit, February 13, 2022: Reviewed scans from 02/06/2022 which were negative for recurrence Breathing heavy but doesn't feel dyspneic Hgb decreased, may need iron. Comparison was from 2 years ago. 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 He then Transitioned care outside of this practice and is now transitioning back. I reviewed his outside records. Still has Diarrhea but he generally deals with it well. Hasn't been restaged.Otherwise feels well. Updated Visit, January 30, 2020: Rocio is 64 and was sent to me for follow-up with persisting fatigue. He is status post Whipple procedure in September 2017. His suspicion was that his anemia was causing his degree of fatigue but I believe he has an other cause. All need reports from his endoscopy and colonoscopy as well as reports from his rn observation. His PFTs are pending, and he was supposed to have CT scans prior to this visit. He will return after he has these done. He is accompanied by his sister Briana. 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 He completed adjuvant chemotherapy in December 2017 with Xeloda plus Gemzar. Today he is here with his sister Briana. He reports that he is fatigued but this is no different thanhis baseline. Since this is so incongruent with his degree of macrocytic anemia and he doesn't qualify for erythropoietin from a renal perspective, I strongly recommended that he needs a endoscopic evaluation in addition to a cardiopulmonary workup. If those are all negative and I would recommend abone marrow biopsy for further investigation. RADIOGRAPHIC DATA: Reviewed on March 13, 2022: 3. 02/06/2022 CT chest abdomen and pelvis with IV contrast: 1. New reticulonodular opacities in the right upper lobe most likely infectious/inflammatory in etiology. Consider follow-up to complete resolution. 2. Marked motion artifact. 3. Findings compatible with previous granulomatous disease. 1. Nonspecific borderline mesenteric lymphadenopathy, stable since 02/20/20. 2. New trace pelvic ascites. 3. Nonspecific persistent diffuse thickening of the urinary bladder wall. 4. Stool is noted throughout the colon. 5. Prominent motion artifact. 2. 08/15/2019 CT chest abdomen and pelvis with IV contrast: 1. Several mildly prominent central mesenteric lymph nodes are again identified, stable from the prior examination of 12/21/2018. 2. Postoperative changes, compatible with prior Whipple's procedure. No CT evidence for recurrent mass. 1. There has been interval development of minimal patchy groundglass opacity, as well as a small consolidative opacity within the left lingula, likely infectious/inflammatory nature. 2. No suspicious pulmonary nodule is appreciated. No substantial intrathoracic adenopathy is identified. Evidence for priorgranulomatous disease. 1. 12/21/2018 CT CAP: Stable CT examination of the chest as above. Several mildly prominent central mesenteric lymph nodes are again identified, less conspicuous when compared to the prior study of 06/04/2018. Postoperative changes, compatible with prior Whipple's procedure. PATHOLOGIC PROFILE/MOLECULAR DATA: Reviewed on December 12, 2019 1. Pancreas and duodenum, pancreaticoduodenectomy (D) Invasive poorly differentiated adenocarcinomaof the ampulla of Vater (4.5 cm) that extends into the duodenum and pancreas. - Metastatic adenocarcinoma involving three of eleven lymph nodes (3/11). - Lymphovascular invasion and perineural invasion are seen. - Surgical resection margins are free of tumor. REVIEW OF SYSTEMS Per HPI and otherwise negative by full review of organ systems. ECOG PERFORMANCE STATUS: 1 PHYSICAL EXAMINATION: Vitals: BP 118/81 Pulse 83 Temp (Src) 97.4 (Temporal) Resp 18 Ht 5' 7.244 (1.71m) Wt 0 lb (0.0kg) SpO2 100% Body surface area is 1.55 meters squared. Exam limited to gross visualization where appropriate. He is using a wheelchair and has mild expressive aphasia. Gen.: This is an age-appropriate patient in no acute distress. Head: Appears atraumatic with no visible lesions. Eyes: Pupils equally round and reactive to light, extraocular muscles are intact. Neck: Supple. Respiratory: Appears to be respiring comfortably. Neurologic: Nonfocal to gross visualization. Alert and oriented 3. Psychiatric: No evidence of inappropriate anxiety or depression. Skin: Visible areas of skin without rash, lesions, wounds or petechiae. ALLERGIES: ALLERGIES No Known Allergies MEDICATIONS: metoclopramide HCl (REGLAN) 10 mg tablet^Take 1 tablet by mouth three times daily with meals.^Disp:90 tablet^Rfl: 1 wxexny-mmfqszlf-okccjde (CREON 24) 24,000-76,000 -120,000 unit delayed release capsule^Take 2 capsules by mouth three times daily with meals.^Disp: 540 capsule^Rfl: 1 folic acid 1 mg tablet^Take 1 tablet by mouth once daily.^Disp: 90 tablet^Rfl: 3 Cholestyramine-Aspartame (CHOLESTYRAMINE LIGHT) 4 gram powder^Take 4 g by mouth three times daily with meals.^Disp: ^Rfl: glipiZIDE (GLUCOTROL) 5 mg tablet^Take 5 mg by mouth twice daily before meals.^Disp: ^Rfl: JARDIANCE 25 mg tablet^^Disp: ^Rfl: ELIQUIS 2.5 mg tab tab(s)^Take 2.5 mg by mouth twice daily.^Disp: ^Rfl: 9 venlafaxine ER (EFFEXOR XR) 75 mg 24 hr capsule^TAKE 1 CAPSULE BY MOUTH ONE TIME A DAY^Disp: ^Rfl: 0 metoprolol succinate ER (TOPROL XL) 25 mg 24 hr tablet^Take 25 mg by mouth once daily. ^Disp: ^Rfl: ALPRAZolam (XANAX) 0.25 mg tablet^Take 0.25 mg by mouth as needed. ^Disp: ^Rfl: FLUoxetine HCl (PROZAC) 40 mg capsule^Take 40 mg by mouth twice daily. ^Disp: ^Rfl: acetaminophen (TYLENOL) 650 mg/20.3 mL soln^Take 20.3 mL by mouth every 6 hours as needed.^Disp: ^Rfl: atorvastatin (LIPITOR) 40 mg tablet^Take 40 mg by mouth daily at bedtime.^Disp: ^Rfl: nitroglycerin sublingual (NITROSTAT) 0.4 mg SL tablet^Dissolve 0.4 mg under the tongue every 5 minutes as needed.^Disp: ^Rfl: LABORATORY VALUES: WBC (k/uL) Date Value 03/11/2023 6.28 RBC (m/uL) Date Value 03/11/2023 3.26 (L) Hemoglobin (g/dL) Date Value 03/11/2023 10.3 (L) Hematocrit (%) Date Value 03/11/2023 32.3 (L) MCV (fL) Date Value 03/11/2023 99.1 MCH (pg) Date Value 03/11/2023 31.6 MCHC (g/dL) Date Value 03/11/2023 31.9 RDW-CV (%) Date Value 03/11/2023 13.5 Platelet Count (k/uL) Date Value 03/11/2023 298 MPV (fL) Date Value 03/11/2023 9.3 Glucose (mg/dL) Date Value 03/11/2023 117 (H) BUN (mg/dL) Date Value 03/11/2023 22 Creatinine (mg/dL) Date Value 03/11/2023 0.77 Sodium (mmol/L) Date Value 03/11/2023 139 Potassium (mmol/L) Date Value 03/11/2023 4.2 Chloride (mmol/L) Date Value 03/11/2023 106 (H) CO2 (mmol/L) Date Value 03/11/2023 22 Protein, Total (g/dL) Date Value 03/11/2023 6.8 Albumin (g/dL) Date Value 03/11/2023 3.5 (L) Calcium, Total (mg/dL) Date Value 03/11/2023 9.3 Alkaline Phosphatase (U/L) Date Value 03/11/2023 107 Bilirubin, Total (mg/dL) Date Value 03/11/2023 0.3 AST (U/L) Date Value 03/11/2023 18 ALT (U/L) Date Value 03/11/2023 17 DIAGNOSIS: (C24.1) Cancer of ampulla of Vater (HCC) (primary encounter diagnosis) Plan: CBC + DIFF, COMP METABOLIC PANEL, IRON + TIBC, FERRITIN BLD, VITAMIN B12 BLOOD, FOLATE SERUM, CA 19-9 BLD (D51.9) Anemia due to vitamin B12 deficiency, unspecified B12 deficiency type Plan: CBC + DIFF, COMP METABOLIC PANEL, IRON + TIBC, FERRITIN BLD, VITAMIN B12 BLOOD, FOLATE SERUM, CA 19-9 BLD (D50.9) Iron deficiency anemia, unspecified iron deficiency anemia type Plan: CBC + DIFF, COMP METABOLIC PANEL, IRON + TIBC, FERRITIN BLD, VITAMIN B12 BLOOD, FOLATE SERUM, CA 19-9 BLD PAST MEDICAL HISTORY Diagnosis Date Anemia Anxiety Bleeding ulcer 11/15/2016 required 5 blood transfusions Coronary artery disease involving [place] coronary artery Diabetes mellitus (HCC) 2017 Duodenal cancer (HCC) Dyslipidemia Fatigue Glaucoma Hypertension Myocardial infarction (HCC) 05/15/2011 PTSD (post-traumatic stress disorder) PAST SURGICAL HISTORY Procedure Laterality Date ANGIOPLASTY HX 05/15/2011 2 stents s/p MD;[facility] CHOLECYSTECTOMY 08/11/2017 [facility] COLONOSCOPY PAST SURGICAL HISTORY OF Cardiac Stents x2 PAST SURGICAL HISTORY OF 09/2017 Whipple PICC LINE INSERT/CONSULT 08/16/2017 Social History Tobacco Use Smoking status: Former Types: Cigarettes Quit date: 2010 Years since quittin.7 Passive exposure: Past Smokeless tobacco: Never Vaping Use Vaping Use: Never used Substance Use Topics Alcohol use: Yes Alcohol/week: 2.5 standard drinks of alcohol Types: 1 Cans of Beer (12oz) per week Comment: occasional beer Drug use: No FAMILY HISTORY Problem Relation Age of Onset Cancer Sister I spent a total of 30 minutes on the date of the service which included preparing to see the patient, [id number] patient care, completing clinical documentation, performing a medically appropriate examination, counseling and educating the patient/family/caregiver, ordering medications, tests, or p rocedures, independently interpreting results (not separately reported), communicating results to the patient/family/caregiver, and care coordination (not separately reported). Zahra Buitrago MD, CPE Hematology and Oncology Services Provided at: [place], [place] CC: Dr. David Caputo [address] [place] [id number] documented in this encounterC[facility] History general Narrative - Reported* Type Description Date Medical History BMI 20.0-20.9, adult Medical History Paroxysmal atrial fibrillation Medical History Lumbar pain Medical History Essential hypertension Medical History Tachypnea on examination Medical History Dyspnea on exertion Medical History Anxiety, generalized Medical History Anemia, macrocytic Medical History Elevated LFTs Medical History Fatigue Medical History 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 Surgical History heart stent 2010 Surgical History stomach ulcer 2017 Surgical History gallbladder 2018 Surgical History whipple 2018 Surgical History colonoscopy 2019 Hospitalization History SEE SURGICAL HX [facility] Other 09-07-2023 History general Narrative - Reported* Type Description Date Medical History BMI 20.0-20.9, adult Medical History Paroxysmal atrial fibrillation Medical History Lumbar pain Medical History Essential hypertension Medical History Tachypnea on examination Medical History Dyspnea on exertion Medical History Anxiety, generalized Medical History Anemia, macrocytic Medical History Elevated LFTs Medical History Fatigue Medical History 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 Surgical History heart stent 2010 Surgical History stomach ulcer 2017 Surgical History gallbladder 2018 Surgical History whipple 2018 Surgical History colonoscopy 2020 Hospitalization History SEE SURGICAL HX [facility] Other 09-07-2023 Evaluation note* Encounter Date Diagnosis Assessment Notes Treatment Notes Treatment Clinical Notes Feb, SIRS (systemic inflammatory response syndrome) (ICD-10 - R65.10) Reviewed hospital notes and discharge summary. Overall improved. Feb, Coronary artery disease involving [place] coronary artery of [place] heart without angina pectoris (ICD-10 - I25.10) Chronic - continue followup w cardio and oncology. Feb, Type 2 diabetes mellitus with hyperglycemia, without long-term current use of insulin (ICD-10 - E11.65) Glucose improved from earlier this summer. Son will call with some readings at home. [facility] Other 09-07-2023 Miscellaneous Notes* Telephone Encounter - Haley Miller MA - 03/05/2023 11:34 AM EDT Patient has an appt on 03/11/23. Would you like labs, if so place orders. His PET scan is 03/11/23. Haley Miller MA documented in this encounterC[facility]08-24-2023 [facility] Instructions* Patient Instructions* Zahra Buitrago MD - 02/19/2023 4:16 PM EDT B12 shot today and every 4 weeks. Patient will continue folic acid 1 mg daily as Rx'd. PET/CT in 1-2 weeks RTC same day to review images. continue following with Dr. Caputo for DMII management. documented in this encounterC[facility]08-24-2023 History of Present illness Narrative* Zahra Buitrago MD - 02/19/2023 3:57 PM EDT Images from the original note were not included. NAME: Rocio Jackson CLINIC NO.: [id number] DATE OF SERVICE: February 19, 2023 ([facility]) Some elements in this clinic note that are critical to medical decision making have been carefully reviewed and included from a prior clinic note dated: November 28, 2022 ([facility]) Referring Provider: Dr. Vanessa Bejarano Additional Clinicians involved in Rociomarisa Jackson's care: Dr. David Caputo CC: Follow up on anemia. 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 Completed adjuvant chemotherapy in December 2017 with Xeloda and Gemzar. No evidence of recurrent disease on CT imaging from July 2019. VANNESA on review of his most recent scans. Anemia, unspecified type He does have a history of iron deficiency anemia requiring IV iron in 2018. At this time he has macrocytic anemia. Today we discussed his positive KERRI and his inappropriately low/normal erythropoietin. I offered him rheumatology consult he wanted to wait for now. I also offered him regular Aranesp. He would prefer to monitor for now given his current hemoglobin level. We will continue to monitor his hemoglobin closely every 2 months for now. He was instructed to notify us immediately if he has any black or bloody stools. He has significant components of anemia of chronic disease. Doing well on B12 and folate replacement. PLAN: B12 shot today and every 4 weeks. Patient will continue folic acid 1 mg daily as Rx'd. PET/CT in 1-2 weeks RTC same day to review images. continue following with Dr. Caputo for DMII management. 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 H/O iron deficiency anemia 3. Folate deficiency anemia 4. B12 deficiency anemia Treatment History: 1. Pancreatic duodenectomy 09/30/2017 2. Adjuvant chemotherapy with Gemzar and Xeloda (Per Dr. Reyez) 11/13/17-01/22/18 3. IV iron given in April 2018 HPI: Updated Visit, February 19, 2023: Doesn't look as strong as he usually does. But blood sugar is better . Weight is down. Is watching his sugars more closely Family says no open wounds. CTCAP done late December in [place] concerning for possible metastatic disease. Updated Visit, November 28, 2022: Rocio returns with his son today. Blood sugars are really high. Will need this addressed. Updated Visit, October 03, 2022: Rocio Jackson returns for follow-up. He is accompanied by his son. Since his last visit there has been no significant medical changes. He denies any signs of bleeding and abnormal blood loss. He offersno particular new complaints today. Updated Visit, August 08, 2022: Rocio returns with his son Joaquin - his blood sugar was noted to be elevated significantly but he just ate ice cream. Recommended he follow with his PCP. Hgb improving. Will continue following as noted above. Updated Visit, July 03, 2022: Stable clinically. CT CAP done earlier today is negative for metastatic recurrence. Updated Visit, June 06, 2022: Rocio is 67 years old and returns with his son Joaquin. Worked at a [employer]. Doing well overall is at his baseline. Anemia unchanged. Not sure B12 shots are impacting him significantly - will re-visit next visit. Updated Visit, May 08, 2022: H/H improved with addition of folic acid as well as iron infusion. Continue B12 shots Still feels sluggish yet improved overall. Iron studies pending today. No abdominal pain or nausea. Updated Visit, April 10, 2022: Rocio is 66 years old and returns with his son for review of laboratories. He has had worsening anemia since his last visit a month ago and notes that he had some blood in his underwear 3-4 days ago. I am not sure from what he tells me that he is actively bleeding or not. Chronic left sided low back pain. TIBC and iron is low - unsure if he's some underlying inflammatory problem causing elevated ferritin. Updated Visit, March 13, 2022: Rocio Jackson returns for scheduled follow-up. Overall he is feeling fairly well. He denies any obvious signs of bleeding. No black dark stools. He denies any abnormal bruising. He denies cough and shortness of breath. He states that he is breathing heavily due to anxiety. He has not yet picked up the prescription for folic acid. Updated Visit, February 13, 2022: Reviewed scans from 02/06/2022 which were negative for recurrence Breathing heavy but doesn't feel dyspneic Hgb decreased, may need iron. Comparison was from 2 years ago. 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 He then Transitioned care outside of this practice and is now transitioning back. I reviewed his outside records. Still has Diarrhea but he generally deals with it well. Hasn't been restaged.Otherwise feels well. Updated Visit, January 30, 2020: Rocio is 64 and was sent to me for follow-up with persisting fatigue. He is status post Whipple procedure in September 2017. His suspicion was that his anemia was causing his degree of fatigue but I believe he has an other cause. All need reports from his endoscopy and colonoscopy as well as reports from his rn observation. His PFTs are pending, and he was supposed to have CT scans prior to this visit. He will return after he has these done. He is accompanied by his sister Briana. 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 He completed adjuvant chemotherapy in December 2017 with Xeloda plus Gemzar. Today he is here with his sister Briana. He reports that he is fatigued but this is no different thanhis baseline. Since this is so incongruent with his degree of macrocytic anemia and he doesn't qualify for erythropoietin from a renal perspective, I strongly recommended that he needs a endoscopic evaluation in addition to a cardiopulmonary workup. If those are all negative and I would recommend abone marrow biopsy for further investigation. RADIOGRAPHIC DATA: Reviewed on March 13, 2022: 3. 02/06/2022 CT chest abdomen and pelvis with IV contrast: 1. New reticulonodular opacities in the right upper lobe most likely infectious/inflammatory in etiology. Consider follow-up to complete resolution. 2. Marked motion artifact. 3. Findings compatible with previous granulomatous disease. 1. Nonspecific borderline mesenteric lymphadenopathy, stable since 02/20/20. 2. New trace pelvic ascites. 3. Nonspecific persistent diffuse thickening of the urinary bladder wall. 4. Stool is noted throughout the colon. 5. Prominent motion artifact. 2. 08/15/2019 CT chest abdomen and pelvis with IV contrast: 1. Several mildly prominent central mesenteric lymph nodes are again identified, stable from the prior examination of 12/21/2018. 2. Postoperative changes, compatible with prior Whipple's procedure. No CT evidence for recurrent mass. 1. There has been interval development of minimal patchy groundglass opacity, as well as a small consolidative opacity within the left lingula, likely infectious/inflammatory nature. 2. No suspicious pulmonary nodule is appreciated. No substantial intrathoracic adenopathy is identified. Evidence for priorgranulomatous disease. 1. 12/21/2018 CT CAP: Stable CT examination of the chest as above. Several mildly prominent central mesenteric lymph nodes are again identified, less conspicuous when compared to the prior study of 06/04/2018. Postoperative changes, compatible with prior Whipple's procedure. PATHOLOGIC PROFILE/MOLECULAR DATA: Reviewed on December 12, 2019 1. Pancreas and duodenum, pancreaticoduodenectomy (D) Invasive poorly differentiated adenocarcinomaof the ampulla of Vater (4.5 cm) that extends into the duodenum and pancreas. - Metastatic adenocarcinoma involving three of eleven lymph nodes (3/11). - Lymphovascular invasion and perineural invasion are seen. - Surgical resection margins are free of tumor. REVIEW OF SYSTEMS Per HPI and otherwise negative by full review of organ systems. ECOG PERFORMANCE STATUS: 1 PHYSICAL EXAMINATION: Vitals: BP 98/63 Pulse 98 Temp (Src) 97.5 (Temporal) Resp 18 Wt 112 lb (50.8kg) SpO2 97% Body surface area is 1.55 meters squared. Exam limited to gross visualization where appropriate. He is using a walker and has mild expressiveaphasia. Gen.: This is an age-appropriate patient in no acute distress. Head: Appears atraumatic with no visible lesions. Eyes: Pupils equally round and reactive to light, extraocular muscles are intact. Neck: Supple. Respiratory: Appears to be respiring comfortably. Neurologic: Nonfocal to gross visualization. Alert and oriented 3. Psychiatric: No evidence of inappropriate anxiety or depression. Skin: Visible areas of skin without rash, lesions, wounds or petechiae. ALLERGIES: ALLERGIES No Known Allergies MEDICATIONS: metoclopramide HCl (REGLAN) 10 mg tablet Take 1 tablet by mouth three times daily with meals. yofirj-nzvigdem-vaewyfg (CREON 24) 24,000-76,000 -120,000 unit delayed release capsule Take 2 capsules by mouth three times daily with meals. folic acid 1 mg tablet Take 1 tablet by mouth once daily. Cholestyramine-Aspartame (CHOLESTYRAMINE LIGHT) 4 gram powder Take 4 g by mouth three times daily with meals. glipiZIDE (GLUCOTROL) 5 mg tablet Take 5 mg by mouth twice daily before meals. JARDIANCE 25 mg tablet ELIQUIS 2.5 mg tab tab(s) Take 2.5 mg by mouth twice daily. venlafaxine ER (EFFEXOR XR) 75 mg 24 hr capsule TAKE 1 CAPSULE BY MOUTH ONE TIME A DAY metoprolol succinate ER (TOPROL XL) 25 mg 24 hr tablet Take 25 mg by mouth once daily. ALPRAZolam (XANAX) 0.25 mg tablet Take 0.25 mg by mouth as needed. FLUoxetine HCl (PROZAC) 40 mg capsule Take 40 mg by mouth twice daily. acetaminophen (TYLENOL) 650 mg/20.3 mL soln Take 20.3 mL by mouth every 6 hours as needed. atorvastatin (LIPITOR) 40 mg tablet Take 40 mg by mouth daily at bedtime. nitroglycerin sublingual (NITROSTAT) 0.4 mg SL tablet Dissolve 0.4 mg under the tongue every 5 minutes as needed. LABORATORY VALUES: WBC (k/uL) Date Value 02/19/2023 4.68 RBC (m/uL) Date Value 02/19/2023 3.10 (L) Hemoglobin (g/dL) Date Value 02/19/2023 9.8 (L) Hematocrit (%) Date Value 02/19/2023 30.7 (L) MCV (fL) Date Value 02/19/2023 99.0 MCH (pg) Date Value 02/19/2023 31.6 MCHC (g/dL) Date Value 02/19/2023 31.9 RDW-CV (%) Date Value 02/19/2023 13.3 Platelet Count (k/uL) Date Value 02/19/2023 266 MPV (fL) Date Value 02/19/2023 8.9 (L) Glucose (mg/dL) Date Value 02/19/2023 165 (H) BUN (mg/dL) Date Value 02/19/2023 22 Creatinine (mg/dL) Date Value 02/19/2023 0.72 (L) Sodium (mmol/L) Date Value 02/19/2023 137 Potassium (mmol/L) Date Value 02/19/2023 4.2 Chloride (mmol/L) Date Value 02/19/2023 106 (H) CO2 (mmol/L) Date Value 02/19/2023 20 (L) Protein, Total (g/dL) Date Value 02/19/2023 7.0 Albumin (g/dL) Date Value 02/19/2023 3.8 (L) Calcium, Total (mg/dL) Date Value 02/19/2023 9.6 Alkaline Phosphatase (U/L) Date Value 02/19/2023 112 Bilirubin, Total (mg/dL) Date Value 02/19/2023 0.2 AST (U/L) Date Value 02/19/2023 16 ALT (U/L) Date Value 02/19/2023 17 DIAGNOSIS: (C24.1) Cancer of ampulla of Vater (HCC) (primary encounter diagnosis) Plan: NM PET/CT SKULL-THIGH INITIAL (R63.4) Abnormal weight loss (D51.9) Anemia due to vitamin B12 deficiency, unspecified B12 deficiency type (D75.89) Macrocytosis (D50.9) Iron deficiency anemia, unspecified iron deficiency anemia type PAST MEDICAL HISTORY Diagnosis Date Anemia Anxiety Bleeding ulcer 11/15/2016 required 5 blood transfusions Coronary artery disease involving [place] coronary artery Diabetes mellitus (HCC) 2017 Duodenal cancer (HCC) Dyslipidemia Fatigue Glaucoma Hypertension Myocardial infarction (HCC) 05/15/2011 PTSD (post-traumatic stress disorder) PAST SURGICAL HISTORY Procedure Laterality Date ANGIOPLASTY HX 05/15/2011 2 stents s/p MD;[facility] CHOLECYSTECTOMY 08/11/2017 [facility] COLONOSCOPY PAST SURGICAL HISTORY OF Cardiac Stents x2 PAST SURGICAL HISTORY OF 09/2017 [facility] PICC LINE INSERT/CONSULT 08/16/2017 Social History Tobacco Use Smoking status: Former Types: Cigarettes Quit date: 2010 Years since quittin.6 Passive exposure: Past Smokeless tobacco: Never Vaping Use Vaping Use: Never used Substance Use Topics Alcohol use: Yes Alcohol/week: 2.5 standard drinks of alcohol Types: 1 Cans of Beer (12oz) per week Comment: occasional beer Drug use: No FAMILY HISTORY Problem Relation Age of Onset Cancer Sister I spent a total of 30 minutes on the date of the service which included preparing to see the patient, [id number] patient care, completing clinical documentation, performing a medically appropriate examination, counseling and educating the patient/family/caregiver, ordering medications, tests, or p rocedures, and independently interpreting results (not separately reported). Zahra Buitrago MD, CPE Hematology and Oncology Services Provided at: [place], [place] CC: Dr. David Caputo [address] [facility] [id number] documented in this encounterC[facility]08-[facility]-2023 Miscellaneous Notes* Telephone Encounter - Katie Seay - 02/17/2023 2:14 PM EDT Patient has an appt on 02/19. Would you like labs? documented in this encounterCleveland [facility]07-26-2023 Miscellaneous Notes* Telephone Encounter - Susan Jones RN - 01/21/2023 11:11 AM EDT FYI: Pt admitted to [facility] ICU. Presented w/ chest pain and elevated Troponin. 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 Dr Malhotra, Oncologist w/ the [facility] consulted. Copy of pt's last office note faxed to [phone]. Susan Jones RN documented in this encounterCleveland Clinic [facility] Hospital07-19-2023 Evaluation note* Encounter Date Diagnosis Assessment Notes Treatment Notes Treatment Clinical Notes Dec, Anxiety, generalized (ICD-10 - F41.1) [facility] Other 07-19-2023 Miscellaneous Notes* Telephone Encounter - Cassandra Hernandez RN - 01/14/2023 8:03 AM EDT Spoke with Alise and she is aware of Chris's recommendation. She will inform Dr Lopez for the MRI W/ IV contrast. They will notify our office if pt needs seen once completed. Cassandra Hernandez RN * Telephone Encounter - Zahra Buitrago MD - 01/13/2023 5:05 PM EDT He probably needs an MRI with contrast repeated. This MRI had no contrast. * Telephone Encounter - Cassandra Hernandez RN - 01/13/2023 2:12 PM EDT Pt had MRI ordered by his Pain Management physician 01/02/23. Dr Lopez would like you to review for the findings: Vertebral hemangiomas vs metastatic disease. Pt is schedule for his 3 mo follow up 01/23. CHRIS/HM: Please review and advise. Cassandra Hernandez RN documented in this encounterCleveland Clinic [facility]07-07-2023 History general Narrative - Reported* Type Description Date Medical History BMI 20.0-20.9, adult Medical History Paroxysmal atrial fibrillation Medical History Lumbar pain Medical History Essential hypertension Medical History Tachypnea on examination Medical History Dyspnea on exertion Medical History Anxiety, generalized Medical History Anemia, macrocytic Medical History Elevated LFTs Medical History Fatigue Medical History 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 Surgical History heart stent 2010 Surgical History stomach ulcer 2016 Surgical History gallbladder 2018 Surgical History whipple 2017 Surgical History colonoscopy 2019 Hospitalization History SEE SURGICAL HX [facility] [employer] Other 07-06-2023 Evaluation note* Encounter Date Diagnosis Assessment Notes Treatment Notes Treatment Clinical Notes Dec, Anxiety disorder, unspecified (ICD-10 - F41.9) added med. will call for recheck of bps in 1 month Dec, Depression, unspecified (ICD-10 - F32.A) Continue present meds. Dec, Type 2 diabetes mellitus without complication, without long-term current use of insulin (ICD-10 - E11.9) Continue present med - recheck A1C in 2 months Dec, Weakness (ICD-10 - R53.1) needs HH and PT for weakness and variable glucose readings. He is a cancer patient that is now having problems walking and transfers. He is in wheelchair. Will forward this info to for further help. [place] [facility] Other 06-30-2023 Nurse Note* Katie Fritzs - 12/26/2022 4:03 PM EDT Patient Identification confirmed: yes. Injection given and documented on MAR per provider order. Katie Seay documented in this encounterCleveland Clinic [facility]06-16-2023 History general Narrative - Reported* Type Description Date Medical History BMI 20.0-20.9, adult Medical History Paroxysmal atrial fibrillation Medical History Lumbar pain Medical History Essential hypertension Medical History Tachypnea on examination Medical History Dyspnea on exertion Medical History Anxiety, generalized Medical History Anemia, macrocytic Medical History Elevated LFTs Medical History Fatigue Medical History 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 Surgical History heart stent 2010 Surgical History stomach ulcer 2017 Surgical History gallbladder 2018 Surgical History whipple 2018 Surgical History colonoscopy 2019 Hospitalization History SEE SURGICAL HX [facility] [employer] Other 2023 Evaluation note* Encounter Date Diagnosis Assessment Notes Treatment Notes Treatment Clinical Notes Nov, Anxiety, generalized (ICD-10 - F41.1) Nov, Type 2 diabetes mellitus without complication, without long-term current use of insulin (ICD-10 - E11.9) Samples given from office Janumet - followup in [address] [facility] [employer] Other [facility]* Haley Miller MA - 11/28/2022 4:02 PM EDT Patient Identification confirmed: yes. Injection given and documented on MAR per provider order. Haley Miller MA documented in this encounterC[facility] Clinic [facility]06-02-2023 Instructions* Patient Instructions* Zahra Buitrago MD - 11/28/2022 3:42 PM EDT B12 shot today and every 4 weeks. Patient will continue folic acid 1 mg daily as Rx'd. Follow up in 8 weeks for labs and B12. Needs to follow up with Dr. Caputo regarding blood sugars >400 - please send office the labs result. documented in this encounterCleveland Clinic [facility]06-02-2023 History of Present illness Narrative* Zahra Buitrago MD - 11/28/2022 3:37 PM EDT Images from the original note were not included. NAME: Rocio Jackson CLINIC NO.: [id number] DATE OF SERVICE: November 28, 2022 (Iftikhar) Some elements in this clinic note that are critical to medical decision making have been carefully reviewed and included from a prior clinic note dated: October 03, 2022 (Henry) Referring Provider: Dr. Vanessa Bejarano Additional Clinicians involved in Rocio Jackson's care: Dr. David Caputo CC: Follow up on anemia. 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 Completed adjuvant chemotherapy in December 2017 with Xeloda and Gemzar. No evidence of recurrent disease on CT imaging from July 2019. VANNESA on review of his most recent scans. Anemia, unspecified type He does have a history of iron deficiency anemia requiring IV iron in 2018. At this time he has macrocytic anemia. Today we discussed his positive KERRI and his inappropriately low/normal erythropoietin. I offered him rheumatology consult he wanted to wait for now. I also offered him regular Aranesp. He would prefer to monitor for now given his current hemoglobin level. We will continue to monitor his hemoglobin closely every 2 months for now. He was instructed to notify us immediately if he has any black or bloody stools. He has significant components of anemia of chronic disease. Doing well on B12 and folate replacement. PLAN: B12 shot today and every 4 weeks. Patient will continue folic acid 1 mg daily as Rx'd. Follow up in 8 weeks for labs and B12. Needs to follow up with Dr. Caputo regarding blood sugars >400 - please send office the labs result. 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 H/O iron deficiency anemia 3. Folate deficiency anemia 4. B12 deficiency anemia Treatment History: 1. Pancreatic duodenectomy 09/30/2017 2. Adjuvant chemotherapy with Gemzar and Xeloda (Per Dr. Reyez) 11/13/17-01/22/18 3. IV iron given in April 2018 HPI: Updated Visit, November 28, 2022: Rocio returns with his son today. Blood sugars are really high. Will need this addressed. Updated Visit, October 03, 2022: Rocio Jackson returns for follow-up. He is accompanied by his son. Since his last visit there has been no significant medical changes. He denies any signs of bleeding and abnormal blood loss. He offersno particular new complaints today. Updated Visit, August 08, 2022: Rocio returns with his son Joaquin - his blood sugar was noted to be elevated significantly but he just ate ice cream. Recommended he follow with his PCP. Hgb improving. Will continue following as noted above. Updated Visit, July 03, 2022: Stable clinically. CT CAP done earlier today is negative for metastatic recurrence. Updated Visit, June 06, 2022: Rocio is 67 years old and returns with his son Joaquin. Worked at a [employer]. Doing well overall is at his baseline. Anemia unchanged. Not sure B12 shots are impacting him significantly - will re-visit next visit. Updated Visit, May 08, 2022: H/H improved with addition of folic acid as well as iron infusion. Continue B12 shots Still feels sluggish yet improved overall. Iron studies pending today. No abdominal pain or nausea. Updated Visit, April 10, 2022: Rocio is 66 years old and returns with his son for review of laboratories. He has had worsening anemia since his last visit a month ago and notes that he had some blood in his underwear 3-4 days ago. I am not sure from what he tells me that he is actively bleeding or not. Chronic left sided low back pain. TIBC and iron is low - unsure if he's some underlying inflammatory problem causing elevated ferritin. Updated Visit, March 13, 2022: Rocio Jackson returns for scheduled follow-up. Overall he is feeling fairly well. He denies any obvious signs of bleeding. No black dark stools. He denies any abnormal bruising. He denies cough and shortness of breath. He states that he is breathing heavily due to anxiety. He has not yet picked up the prescription for folic acid. Updated Visit, February 13, 2022: Reviewed scans from 02/06/2022 which were negative for recurrence Breathing heavy but doesn't feel dyspneic Hgb decreased, may need iron. Comparison was from 2 years ago. Updated Visit, December 05, 2021: Wanted to re-establish care since his DrDary Retired from practice after leaving this practice.he has had no evidence of progression or that of recurrence since I last saw and spoke with him 2 years ago.. He then Transitioned care outside of this practice and is now transitioning back. I reviewed his outside records. Still has Diarrhea but he generally deals with it well. Hasn't been restaged.Otherwise feels well. Updated Visit, January 30, 2020: Rocio is 64 and was sent to me for follow-up with persisting fatigue. He is status post Whipple procedure in September 2017. His suspicion was that his anemia was causing his degree of fatigue but I believe he has an other cause. All need reports from his endoscopy and colonoscopy as well as reports from his rn observation. His PFTs are pending, and he was supposed to have CT scans prior to this visit. He will return after he has these done. He is accompanied by his sister Briana. 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 He completed adjuvant chemotherapy in December 2017 with Xeloda plus Gemzar. Today he is here with his sister Briana. He reports that he is fatigued but this is no different thanhis baseline. Since this is so incongruent with his degree of macrocytic anemia and he doesn't qualify for erythropoietin from a renal perspective, I strongly recommended that he needs a endoscopic evaluation in addition to a cardiopulmonary workup. If those are all negative and I would recommend abone marrow biopsy for further investigation. RADIOGRAPHIC DATA: Reviewed on March 13, 2022: 3. 02/06/2022 CT chest abdomen and pelvis with IV contrast: 1. New reticulonodular opacities in the right upper lobe most likely infectious/inflammatory in etiology. Consider follow-up to complete resolution. 2. Marked motion artifact. 3. Findings compatible with previous granulomatous disease. 1. Nonspecific borderline mesenteric lymphadenopathy, stable since 02/20/20. 2. New trace pelvic ascites. 3. Nonspecific persistent diffuse thickening of the urinary bladder wall. 4. Stool is noted throughout the colon. 5. Prominent motion artifact. 2. 08/15/2019 CT chest abdomen and pelvis with IV contrast: 1. Several mildly prominent central mesenteric lymph nodes are again identified, stable from the prior examination of 12/21/2018. 2. Postoperative changes, compatible with prior Whipple's procedure. No CT evidence for recurrent mass. 1. There has been interval development of minimal patchy groundglass opacity, as well as a small consolidative opacity within the left lingula, likely infectious/inflammatory nature. 2. No suspicious pulmonary nodule is appreciated. No substantial intrathoracic adenopathy is identified. Evidence for priorgranulomatous disease. 1. 12/21/2018 CT CAP: Stable CT examination of the chest as above. Several mildly prominent central mesenteric lymph nodes are again identified, less conspicuous when compared to the prior study of 06/04/2018. Postoperative changes, compatible with prior Whipple's procedure. PATHOLOGIC PROFILE/MOLECULAR DATA: Reviewed on December 12, 2019 1. Pancreas and duodenum, pancreaticoduodenectomy (D) Invasive poorly differentiated adenocarcinomaof the ampulla of Vater (4.5 cm) that extends into the duodenum and pancreas. - Metastatic adenocarcinoma involving three of eleven lymph nodes (3/11). - Lymphovascular invasion and perineural invasion are seen. - Surgical resection margins are free of tumor. REVIEW OF SYSTEMS Per HPI and otherwise negative by full review of organ systems. ECOG PERFORMANCE STATUS: 1 PHYSICAL EXAMINATION: Vitals: BP 92/63 Pulse 74 Temp (Src) 97.2 (Temporal) Resp 18 Ht 5' 7.244 (1.71m) Wt 0 lb(0.0kg) SpO2 98% Body surface area is 1.75 meters squared. Exam limited to gross visualization where appropriate. He is using a walker and has mild expressiveaphasia. Gen.: This is an age-appropriate patient in no acute distress. Head: Appears atraumatic with no visible lesions. Eyes: Pupils equally round and reactive to light, extraocular muscles are intact. Neck: Supple. Respiratory: Appears to be respiring comfortably. Neurologic: Nonfocal to gross visualization. Alert and oriented 3. Psychiatric: No evidence of inappropriate anxiety or depression. Skin: Visible areas of skin without rash, lesions, wounds or petechiae. ALLERGIES: ALLERGIES No Known Allergies MEDICATIONS: metoclopramide HCl (REGLAN) 10 mg tablet Take 1 tablet by mouth three times daily with meals. Cholestyramine-Aspartame (CHOLESTYRAMINE LIGHT) 4 gram powder Take 4 g by mouth three times daily with meals. glipiZIDE (GLUCOTROL) 5 mg tablet Take 5 mg by mouth twice daily before meals. JARDIANCE 25 mg tablet ELIQUIS 2.5 mg tab tab(s) Take 2.5 mg by mouth twice daily. venlafaxine ER (EFFEXOR XR) 75 mg 24 hr capsule TAKE 1 CAPSULE BY MOUTH ONE TIME A DAY metoprolol succinate ER (TOPROL XL) 25 mg 24 hr tablet Take 25 mg by mouth once daily. ALPRAZolam (XANAX) 0.25 mg tablet Take 0.25 mg by mouth as needed. FLUoxetine HCl (PROZAC) 40 mg capsule Take 40 mg by mouth twice daily. acetaminophen (TYLENOL) 650 mg/20.3 mL soln Take 20.3 mL by mouth every 6 hours as needed. atorvastatin (LIPITOR) 40 mg tablet Take 40 mg by mouth daily at bedtime. nitroglycerin sublingual (NITROSTAT) 0.4 mg SL tablet Dissolve 0.4 mg under the tongue every 5 minutes as needed. yxujxa-emeyyhij-uyurkps (CREON 24) 24,000-76,000 -120,000 unit delayed release capsule Take 2 capsules by mouth three times daily with meals. folic acid 1 mg tablet Take 1 tablet by mouth once daily. LABORATORY VALUES: WBC (k/uL) Date Value 11/28/2022 4.14 RBC (m/uL) Date Value 11/28/2022 3.40 (L) Hemoglobin (g/dL) Date Value 11/28/2022 10.2 (L) Hematocrit (%) Date Value 11/28/2022 31.8 (L) MCV (fL) Date Value 11/28/2022 93.5 MCH (pg) Date Value 11/28/2022 30.0 MCHC (g/dL) Date Value 11/28/2022 32.1 RDW-CV (%) Date Value 11/28/2022 13.6 Platelet Count (k/uL) Date Value 11/28/2022 316 MPV (fL) Date Value 11/28/2022 9.3 Glucose (mg/dL) Date Value 11/28/2022 422 (H) BUN (mg/dL) Date Value 11/28/2022 30 (H) Creatinine (mg/dL) Date Value 11/28/2022 0.90 Sodium (mmol/L) Date Value 11/28/2022 132 (L) Potassium (mmol/L) Date Value 11/28/2022 4.7 Chloride (mmol/L) Date Value 11/28/2022 103 CO2 (mmol/L) Date Value 11/28/2022 19 (L) Protein, Total (g/dL) Date Value 11/28/2022 7.0 Albumin (g/dL) Date Value 11/28/2022 3.6 (L) Calcium, Total (mg/dL) Date Value 11/28/2022 9.4 Alkaline Phosphatase (U/L) Date Value 11/28/2022 143 (H) Bilirubin, Total (mg/dL) Date Value 11/28/2022 0.2 AST (U/L) Date Value 11/28/2022 15 ALT (U/L) Date Value 11/28/2022 25 DIAGNOSIS: (D51.9) Anemia due to vitamin B12 deficiency, unspecified B12 deficiency type (primary encounter diagnosis) (D50.9) Iron deficiency anemia, unspecified iron deficiency anemia type Plan: ozstup-lywsopft-ijfhviy (CREON 24) 24,000-76,000 -120,000 unit delayed release capsule (C24.1) Cancer of ampulla of Vater (HCC) (K31.5) Duodenal obstruction Plan: ybcuzo-tttpuyey-afngyah (CREON 24) 24,000-76,000 -120,000 unit delayed release capsule PAST MEDICAL HISTORY Diagnosis Date Anemia Anxiety Bleeding ulcer 11/15/2016 required 5 blood transfusions Coronary artery disease involving [place] coronary artery Diabetes mellitus (HCC) 2017 Duodenal cancer (HCC) Dyslipidemia Fatigue Glaucoma Hypertension Myocardial infarction (HCC) 05/15/2011 PTSD (post-traumatic stress disorder) PAST SURGICAL HISTORY Procedure Laterality Date ANGIOPLASTY HX 05/15/2011 2 stents s/p MD;[facility] CHOLECYSTECTOMY 08/11/2017 [facility] COLONOSCOPY PAST SURGICAL HISTORY OF Cardiac Stents x2 PAST SURGICAL HISTORY OF 09/2017 [place] PICC LINE INSERT/CONSULT 08/16/2017 Social History Tobacco Use Smoking status: Former Types: Cigarettes Quit date: 2010 Years since quittin.4 Passive exposure: Past Smokeless tobacco: Never Vaping Use Vaping Use: Never used Substance Use Topics Alcohol use: Yes Alcohol/week: 2.5 standard drinks Types: 1 Cans of Beer (12oz) per week Comment: occasional beer Drug use: No FAMILY HISTORY Problem Relation Age of Onset Cancer Sister I spent a total of 20 minutes on the date of the service which included preparing to see the patient, [id number] patient care, completing clinical documentation, performing a medically appropriate examination, counseling and educating the patient/family/caregiver, ordering medications, tests, or p rocedures, and independently interpreting results (not separately reported). Zahra Buitrago MD, CPE Hematology and Oncology Services Provided at: [place], [place] CC: Dr. David Caputo [address] [place] [phone] documented in this encounterCleveland [facility]06-01-2023 Evaluation note* Encounter Date Diagnosis Assessment Notes Treatment Notes Treatment Clinical Notes Nov, Lumbar pain (ICD-10 - M54.50) [facility] Other 05-26-2023 Evaluation note* Encounter Date Diagnosis Assessment Notes Treatment Notes Treatment Clinical Notes October, Anxiety, generalized (ICD-10 - F41.1) [facility] Other 05-05-2023 Nurse Note* Haley Miller MA - 10/31/2022 3:35 PM EDT Patient Identification confirmed: yes. Injection given and documented on AUG per provider order. Haley Miller MA documented in this encounterC[facility]-2023 Miscellaneous Notes* Telephone Encounter - Rola Gordon APRN.CNP - 10/29/2022 2:43 PM EDT The following approved medication requests have been transmitted electronically. Requested Prescriptions Signed Prescriptions Disp Refills metoclopramide HCl (REGLAN) 10 mg tablet 90 tablet 1 Sig: Take 1 tablet by mouth three times daily with meals. Authorizing Provider: ROLA GORDON APRN.CNP documented in this encounterCleveland [facility]05-02-2023 History general Narrative - Reported* Type Description Date Medical History BMI 20.0-20.9, adult Medical History Paroxysmal atrial fibrillation Medical History Lumbar pain Medical History Essential hypertension Medical History Tachypnea on examination Medical History Dyspnea on exertion Medical History Anxiety, generalized Medical History Anemia, macrocytic Medical History Elevated LFTs Medical History Fatigue Medical History 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 Surgical History heart stent 2010 Surgical History stomach ulcer 2016 Surgical History gallbladder 2018 Surgical History whipple 2017 Surgical History colonoscopy 2019 Hospitalization History SEE SURGICAL [facility] [facility]* Katie Seay - 10/03/2022 4:04 PM EDT Patient Identification confirmed: yes . Injection given and documented on AUG per provider order. Katie Seay documented in this encounterC[facility]03-10-2023 Nurse Note* Haley Miller MA - 09/05/2022 2:16 PM EST Patient Identification confirmed: yes. Injection given and documented on AUG per provider order. Haley Miller MA documented in this encounterC[facility]02-22-2023 Miscellaneous Notes* Telephone Encounter - Rola Gordon APRN.CNP - 08/20/2022 10:08 AM EST The following approved medication requests have been transmitted electronically. Requested Prescriptions Signed Prescriptions Disp Refills metoclopramide HCl (REGLAN) 10 mg tablet 90 tablet 1 Sig: Take 1 tablet by mouth three times daily with meals. Authorizing Provider: ROLA GORDON APRN.DIVIDEND DEPOSIT VOUCHER CLERK documented in this encounterCleveland Clinic [facility]02-10-2023 [facility] Instructions* Patient Instructions* Zahra Buitrago MD - 08/08/2022 3:14 PM EST B12 shot today and every 4 weeks. Patient will continue folic acid 1 mg daily as Rx'd. RTC in 8 weeks for follow-up, labs and B12 See Rola Dee documented in this encounterCleveland Clinic [facility]02-10-2023 History of Present illness Narrative* Zahra Buitrago MD - 08/08/2022 3:00 PM EST Images from the original note were not included. NAME: Rocio Jackson CLINIC NO.: [id number] DATE OF SERVICE: August 08, 2022 (Iftikhar) Some elements in this clinic note that are critical to medical decision making have been carefully reviewed and included from a prior clinic note dated: July 03, 2022 (Iftikhar) Referring Provider: Dr. Vanessa Bejarano Additional Clinicians involved in Rocio Jackson's care: Dr. David Caputo CC: Follow up on anemia. 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 Completed adjuvant chemotherapy in December 2017 with Xeloda and Gemzar. No evidence of recurrent disease on CT imaging from July 2019. VANNESA on review of his most recent scans. Anemia, unspecified type He does have a history of iron deficiency anemia requiring IV iron in 2018. At this time he has macrocytic anemia. Today we discussed his positive KERRI and his inappropriately low/normal erythropoietin. I offered him rheumatology consult he wanted to wait for now. I also offered him regular Aranesp. He would prefer to monitor for now given his current hemoglobin level. We will continue to monitor his hemoglobin closely every 2 months for now. He was instructed to notify us immediately if he has any black or bloody stools. He has significant components of anemia of chronic disease. Doing well on B12 and folate replacement. PLAN: B12 shot today and every 4 weeks. Patient will continue folic acid 1 mg daily as Rx'd. RTC in 8 weeks for follow-up, labs and B12 See Rola / Leila 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 H/O iron deficiency anemia 3. Folate deficiency anemia 4. B12 deficiency anemia Treatment History: 1. Pancreatic duodenectomy 09/30/2017 2. Adjuvant chemotherapy with Gemzar and Xeloda (per Dr. Reyez) 11/13/17-01/22/18 3. IV iron given in April 2018 HPI: Updated Visit, August 08, 2022: Rocio returns with his son Joaquin - his blood sugar was noted to be elevated significantly but he just ate ice cream. Recommended he follow with his PCP. Hgb improving. Will continue following as noted above. Updated Visit, July 03, 2022: Stable clinically. CT CAP done earlier today is negative for metastatic recurrence. Updated Visit, June 06, 2022: Rocio is 67 years old and returns with his son Joaquin. Worked at a [employer]. Doing well overall is at his baseline. Anemia unchanged. Not sure B12 shots are impacting him significantly - will re-visit next visit. Updated Visit, May 08, 2022: H/H improved with addition of folic acid as well as iron infusion. Continue B12 shots Still feels sluggish yet improved overall. Iron studies pending today. No abdominal pain or nausea. Updated Visit, April 10, 2022: Rocio is 66 years old and returns with his son for review of laboratories. He has had worsening anemia since his last visit a month ago and notes that he had some blood in his underwear 3-4 days ago. I am not sure from what he tells me that he is actively bleeding or not. Chronic left sided low back pain. TIBC and iron is low - unsure if he's some underlying inflammatory problem causing elevated ferritin. Updated Visit, March 13, 2022: Rocio Jackson returns for scheduled follow-up. Overall he is feeling fairly well. He denies any obvious signs of bleeding. No black dark stools. He denies any abnormal bruising. He denies cough and shortness of breath. He states that he is breathing heavily due to anxiety. He has not yet picked up the prescription for folic acid. Updated Visit, February 13, 2022: Reviewed scans from 02/06/2022 which were negative for recurrence Breathing heavy but doesn't feel dyspneic Hgb decreased, may need iron. Comparison was from 2 years ago. Updated Visit, December 05, 2021: Wanted to re-establish care since his DrDary Retired from practice after leaving this practice.he has had no evidence of progression or that of recurrence since I last saw and spoke with him 2 years ago.. He then Transitioned care outside of this practice and is now transitioning back. I reviewed his outside records. Still has Diarrhea but he generally deals with it well. Hasn't been restaged.Otherwise feels well. Updated Visit, January 30, 2020: Rocio is 64 and was sent to me for follow-up with persisting fatigue. He is status post Whipple procedure in September 2017. His suspicion was that his anemia was causing his degree of fatigue but I believe he has an other cause. All need reports from his endoscopy and colonoscopy as well as reports from his rn observation. His PFTs are pending, and he was supposed to have CT scans prior to this visit. He will return after he has these done. He is accompanied by his sister Briana. 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 He completed adjuvant chemotherapy in December 2017 with Xeloda plus Gemzar. Today he is here with his sister Briana. He reports that he is fatigued but this is no different thanhis baseline. Since this is so incongruent with his degree of macrocytic anemia and he doesn't qualify for erythropoietin from a renal perspective, I strongly recommended that he needs a endoscopic evaluation in addition to a cardiopulmonary workup. If those are all negative and I would recommend abone marrow biopsy for further investigation. RADIOGRAPHIC DATA: Reviewed on March 13, 2022: 3. 02/06/2022 CT chest abdomen and pelvis with IV contrast: 1. New reticulonodular opacities in the right upper lobe most likely infectious/inflammatory in etiology. Consider follow-up to complete resolution. 2. Marked motion artifact. 3. Findings compatible with previous granulomatous disease. 1. Nonspecific borderline mesenteric lymphadenopathy, stable since 02/20/20. 2. New trace pelvic ascites. 3. Nonspecific persistent diffuse thickening of the urinary bladder wall. 4. Stool is noted throughout the colon. 5. Prominent motion artifact. 2. 08/15/2019 CT chest abdomen and pelvis with IV contrast: 1. Several mildly prominent central mesenteric lymph nodes are again identified, stable from the prior examination of 12/21/2018. 2. Postoperative changes, compatible with prior Whipple's procedure. No CT evidence for recurrent mass. 1. There has been interval development of minimal patchy groundglass opacity, as well as a small consolidative opacity within the left lingula, likely infectious/inflammatory nature. 2. No suspicious pulmonary nodule is appreciated. No substantial intrathoracic adenopathy is identified. Evidence for priorgranulomatous disease. 1. 12/21/2018 CT CAP: Stable CT examination of the chest as above. Several mildly prominent central mesenteric lymph nodes are again identified, less conspicuous when compared to the prior study of 06/04/2018. Postoperative changes, compatible with prior Whipple's procedure. PATHOLOGIC PROFILE/MOLECULAR DATA: Reviewed on December 12, 2019 1. Pancreas and duodenum, pancreaticoduodenectomy (D) Invasive poorly differentiated adenocarcinomaof the ampulla of Vater (4.5 cm) that extends into the duodenum and pancreas. - Metastatic adenocarcinoma involving three of eleven lymph nodes (3/11). - Lymphovascular invasion and perineural invasion are seen. - Surgical resection margins are free of tumor. REVIEW OF SYSTEMS Per HPI and otherwise negative by full review of organ systems. ECOG PERFORMANCE STATUS: 1 PHYSICAL EXAMINATION: Vitals: BP 111/76 Pulse 88 Temp (Src) 97.9 (Temporal) Resp 40 Wt 142 lb (64.4kg) SpO2 94% Body surface area is 1.75 meters squared. Exam limited to gross visualization where appropriate due to COVID-19. Gen.: This is an age-appropriate patient in no acute distress. Head: Appears atraumatic with no visible lesions. Eyes: Pupils equally round and reactive to light, extraocular muscles are intact. Neck: Supple. Mouth: Mucous membranes appeared to be moist. Respiratory: Appears to be respiring comfortably. Neurologic: Nonfocal to gross visualization. Alert and oriented 3. Psychiatric: No evidence of inappropriate anxiety or depression. Skin: Visible areas of skin without rash, lesions, wounds or petechiae. ALLERGIES: ALLERGIES No Known Allergies MEDICATIONS: metoclopramide HCl (REGLAN) 10 mg tablet TAKE ONE TABLET BY MOUTH THREE TIMES A DAY WITH MEALS [id number] (CREON 24) 24,000-76,000 -120,000 unit delayed release capsule Take 2 capsules by mouth three times daily with meals. folic acid 1 mg tablet Take 1 tablet by mouth once daily. Cholestyramine-Aspartame (CHOLESTYRAMINE LIGHT) 4 gram powder Take 4 g by mouth three times daily with meals. glipiZIDE (GLUCOTROL) 5 mg tablet Take 5 mg by mouth twice daily before meals. JARDIANCE 25 mg tablet ELIQUIS 2.5 mg tab tab(s) Take 2.5 mg by mouth twice daily. venlafaxine ER (EFFEXOR XR) 75 mg 24 hr capsule TAKE 1 CAPSULE BY MOUTH ONE TIME A DAY metoprolol succinate ER (TOPROL XL) 25 mg 24 hr tablet Take 25 mg by mouth once daily. ALPRAZolam (XANAX) 0.25 mg tablet Take 0.25 mg by mouth as needed. FLUoxetine HCl (PROZAC) 40 mg capsule Take 40 mg by mouth twice daily. acetaminophen (TYLENOL) 650 mg/20.3 mL soln Take 20.3 mL by mouth every 6 hours as needed. atorvastatin (LIPITOR) 40 mg tablet Take 40 mg by mouth daily at bedtime. nitroglycerin sublingual (NITROSTAT) 0.4 mg SL tablet Dissolve 0.4 mg under the tongue every 5 minutes as needed. LABORATORY VALUES: WBC (k/uL) Date Value 08/08/2022 4.68 RBC (m/uL) Date Value 08/08/2022 3.17 (L) Hemoglobin (g/dL) Date Value 08/08/2022 10.1 (L) Hematocrit (%) Date Value 08/08/2022 32.5 (L) MCV (fL) Date Value 08/08/2022 102.5 (H) MCH (pg) Date Value 08/08/2022 31.9 MCHC (g/dL) Date Value 08/08/2022 31.1 RDW-CV (%) Date Value 08/08/2022 12.5 Platelet Count (k/uL) Date Value 08/08/2022 278 MPV (fL) Date Value 08/08/2022 9.1 Glucose (mg/dL) Date Value 08/08/2022 501 (H) BUN (mg/dL) Date Value 08/08/2022 29 (H) Creatinine (mg/dL) Date Value 08/08/2022 0.85 Sodium (mmol/L) Date Value 08/08/2022 132 (L) Potassium (mmol/L) Date Value 08/08/2022 5.4 (H) Chloride (mmol/L) Date Value 08/08/2022 104 CO2 (mmol/L) Date Value 08/08/2022 19 (L) Protein, Total (g/dL) Date Value 08/08/2022 7.4 Albumin (g/dL) Date Value 08/08/2022 3.9 Calcium, Total (mg/dL) Date Value 08/08/2022 9.4 Alkaline Phosphatase (U/L) Date Value 08/08/2022 146 (H) Bilirubin, Total (mg/dL) Date Value 08/08/2022 0.3 AST (U/L) Date Value 08/08/2022 34 ALT (U/L) Date Value 08/08/2022 36 DIAGNOSIS: (D75.89) Macrocytosis (primary encounter diagnosis) (D51.9) Anemia due to vitamin B12 deficiency, unspecified B12 deficiency type (D52.9) Anemia due to folic acid deficiency, unspecified deficiency type (C24.1) Cancer of ampulla of Vater (HCC) PAST MEDICAL HISTORY Diagnosis Date Anemia Anxiety Bleeding ulcer 11/15/2016 required 5 blood transfusions Coronary artery disease involving [place] coronary artery Diabetes mellitus (HCC) 2017 Duodenal cancer (HCC) Dyslipidemia Fatigue Glaucoma Hypertension Myocardial infarction (HCC) 05/15/2011 PTSD (post-traumatic stress disorder) PAST SURGICAL HISTORY Procedure Laterality Date ANGIOPLASTY HX 05/15/2011 2 stents s/p MD;[facility] CHOLECYSTECTOMY 08/11/2017 [facility] COLONOSCOPY PAST SURGICAL HISTORY OF Cardiac Stents x2 PAST SURGICAL HISTORY OF 09/2017 Whipple PICC LINE INSERT/CONSULT 08/16/2017 Social History Tobacco Use Smoking status: Former Types: Cigarettes Quit date: 2010 Years since quittin.1 Passive exposure: Past Smokeless tobacco: Never Vaping Use Vaping Use: Never used Substance Use Topics Alcohol use: Yes Alcohol/week: 2.5 standard drinks Types: 1 Cans of Beer (12oz) per week Comment: occasional beer Drug use: No FAMILY HISTORY Problem Relation Age of Onset Cancer Sister I spent a total of 20 minutes on the date of the service which included preparing to see the patient, outb-me-xtrd patient care, completing clinical documentation, obtaining and/or reviewing separately obtained history, performing a medically appropriate examination, counseling and educating the pat ient/family/caregiver and ordering medications, tests, or procedures. Zahra Buitrago MD, CPE [place], [place] CC: David Caputo MD [address] [place] [phone] documented in this encounterCleveland Clinic [facility] Hospital02-10-2023 Miscellaneous Notes* Telephone Encounter - Magalys Cruz RN - 08/08/2022 2:37 PM EST Received call from Paty at [facility] Lab with urgent result: Glucose 501 Magalys Cruz RN documented in this encounterCleveland Clinic [facility] Hospital01-19-2023 Evaluation note* Encounter Date Diagnosis Assessment Notes Treatment Notes Treatment Clinical Notes Jun, CAD in [place] artery (ICD-10 - I25.10) Continue medications as prescribed Jun, Atypical chest pain (ICD-10 - R07.89) Called [facility] message to return my call. Patient has appointment 09/16. Requested moved up appointment and consider testing at their office as I know they would prefer. 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 Continues remission [facility] [employer] Other 01-09-2023 Miscellaneous Notes* Telephone Encounter - Magalys Cruz RN - 07/07/2022 10:57 AM EST Call placed to pt. No answer. Left message informing pt of Dr Crooks's message and to return call if any questions/concerns. Magalys Cruz RN * Telephone Encounter - Magalys Cruz RN - 07/07/2022 10:20 AM EST Images from the original note were not included. MD Magalys Mendoza RN CT shows no recurrence.Thanks for calling him documented in this encounterCleveland Clinic [facility] Hospital01-05-2023 [facility]01[facility] Nurse Note* Katie Seay - 07/03/2022 3:01 PM EST Patient Identification confirmed: yes. Injection given and documented on AUG per provider order. Katie Seay documented in this encounterCleveland Clinic [facility] Hospital01-05-2023 [facility]01-05[facility] Instructions* Patient Instructions* Zahra Buitrago MD - 07/03/2022 2:18 PM EST B12 shot today and every [address] results pending today Triage to call results Thursday Patient will continue folic acid 1 mg daily as Rx'd. RTC in 4 weeks for follow-up, labs and B12 See Rola / Leila documented in this encounterCleveland Clinic [facility] Hospital01-05-2023 History of Present illness Narrative* Zahra Buitrago MD - 07/03/2022 2:12 PM EST Images from the original note were not included. NAME: Rocio Jackson [facility] NO.: [id number] DATE OF SERVICE: July 03, 2022 (Iftikhar) Some elements in this clinic note that are critical to medical decision making have been carefully reviewed and included from a prior clinic note dated: June 06, 2022 (Iftikhar) Referring Provider: Dr. Vanessa Bejarano Additional Clinicians involved in Rocio Jackson's care: Dr. David Caputo CC: Follow up on anemia. 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 Completed adjuvant chemotherapy in December 2017 with Xeloda and Gemzar. No evidence of recurrent disease on CT imaging from July 2019. VANNESA on review of his most recent scans. Anemia, unspecified type He does have a history of iron deficiency anemia requiring IV iron in 2018. At this time he has macrocytic anemia. Today we discussed his positive KERRI and his inappropriately low/normal erythropoietin. I offered him rheumatology consult he wanted to wait for now. I also offered him regular Aranesp. He would prefer to monitor for now given his current hemoglobin level. We will continue to monitor his hemoglobin closely every 2 months for now. He was instructed to notify us immediately if he has any black or bloody stools. He has significant components of anemia of chronic disease. Doing well on B12 and folate replacement. PLAN: B12 shot today and every [address] results pending today Triage to call results Thursday Patient will continue folic acid 1 mg daily as Rx'd. RTC in 4 weeks for follow-up, labs and B12 See Rola Dee 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 H/O iron deficiency anemia 3. Folate deficiency anemia 4. B12 deficiency anemia Treatment History: 1. Pancreatic duodenectomy 09/30/2017 2. Adjuvant chemotherapy with Gemzar and Xeloda (per Dr. Reyez) 11/13/17-01/22/18 3. IV iron given in April 2018 HPI: Updated Visit, July 03, 2022: Stable clinically. CT CAP done earlier today is negative for metastatic recurrence. Updated Visit, June 06, 2022: Rocio is 67 years old and returns with his son Joaquin. Worked at a [employer]. Doing well overall is at his baseline. Anemia unchanged. Not sure B12 shots are impacting him significantly - will re-visit next visit. Updated Visit, May 08, 2022: H/H improved with addition of folic acid as well as iron infusion. Continue B12 shots Still feels sluggish yet improved overall. Iron studies pending today. No abdominal pain or nausea. Updated Visit, April 10, 2022: Rocio is 66 years old and returns with his son for review of laboratories. He has had worsening anemia since his last visit a month ago and notes that he had some blood in his underwear 3-4 days ago. I am not sure from what he tells me that he is actively bleeding or not. Chronic left sided low back pain. TIBC and iron is low - unsure if he's some underlying inflammatory problem causing elevated ferritin. Updated Visit, March 13, 2022: Rocio Jackson returns for scheduled follow-up. Overall he is feeling fairly well. He denies any obvious signs of bleeding. No black dark stools. He denies any abnormal bruising. He denies cough and shortness of breath. He states that he is breathing heavily due to anxiety. He has not yet picked up the prescription for folic acid. Updated Visit, February 13, 2022: Reviewed scans from 02/06/2022 which were negative for recurrence Breathing heavy but doesn't feel dyspneic Hgb decreased, may need iron. Comparison was from 2 years ago. Updated Visit, December 05, 2021: Wanted to re-establish care since his DrDary Retired from practice after leaving this practice.he has had no evidence of progression or that of recurrence since I last saw and spoke with him 2 years ago.. He then Transitioned care outside of this practice and is now transitioning back. I reviewed his outside records. Still has Diarrhea but he generally deals with it well. Hasn't been restaged.Otherwise feels well. Updated Visit, January 30, 2020: Rocio is 64 and was sent to me for follow-up with persisting fatigue. He is status post Whipple procedure in September 2017. His suspicion was that his anemia was causing his degree of fatigue but I believe he has an other cause. All need reports from his endoscopy and colonoscopy as well as reports from his rn observation. His PFTs are pending, and he was supposed to have CT scans prior to this visit. He will return after he has these done. He is accompanied by his sister Briana. 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 He completed adjuvant chemotherapy in December 2017 with Xeloda plus Gemzar. Today he is here with his sister Briana. He reports that he is fatigued but this is no different thanhis baseline. Since this is so incongruent with his degree of macrocytic anemia and he doesn't qualify for erythropoietin from a renal perspective, I strongly recommended that he needs a endoscopic evaluation in addition to a cardiopulmonary workup. If those are all negative and I would recommend abone marrow biopsy for further investigation. RADIOGRAPHIC DATA: Reviewed on March 13, 2022: 3. 02/06/2022 CT chest abdomen and pelvis with IV contrast: 1. New reticulonodular opacities in the right upper lobe most likely infectious/inflammatory in etiology. Consider follow-up to complete resolution. 2. Marked motion artifact. 3. Findings compatible with previous granulomatous disease. 1. Nonspecific borderline mesenteric lymphadenopathy, stable since 02/20/20. 2. New trace pelvic ascites. 3. Nonspecific persistent diffuse thickening of the urinary bladder wall. 4. Stool is noted throughout the colon. 5. Prominent motion artifact. 2. 08/15/2019 CT chest abdomen and pelvis with IV contrast: 1. Several mildly prominent central mesenteric lymph nodes are again identified, stable from the prior examination of 12/21/2018. 2. Postoperative changes, compatible with prior Whipple's procedure. No CT evidence for recurrent mass. 1. There has been interval development of minimal patchy groundglass opacity, as well as a small consolidative opacity within the left lingula, likely infectious/inflammatory nature. 2. No suspicious pulmonary nodule is appreciated. No substantial intrathoracic adenopathy is identified. Evidence for priorgranulomatous disease. 1. 12/21/2018 CT CAP: Stable CT examination of the chest as above. Several mildly prominent central mesenteric lymph nodes are again identified, less conspicuous when compared to the prior study of 06/04/2018. Postoperative changes, compatible with prior Whipple's procedure. PATHOLOGIC PROFILE/MOLECULAR DATA: Reviewed on December 12, 2019 1. Pancreas and duodenum, pancreaticoduodenectomy (D) Invasive poorly differentiated adenocarcinomaof the ampulla of Vater (4.5 cm) that extends into the duodenum and pancreas. - Metastatic adenocarcinoma involving three of eleven lymph nodes (3/11). - Lymphovascular invasion and perineural invasion are seen. - Surgical resection margins are free of tumor. REVIEW OF SYSTEMS Per HPI and otherwise negative by full review of organ systems. ECOG PERFORMANCE STATUS: 1 PHYSICAL EXAMINATION: Vitals: BP 126/82 Pulse 77 Temp (Src) 97.4 (Temporal) Resp 16 Ht 5' 7.244 (1.71m) Wt 148lb 6.4 oz (67.3kg) SpO2 100% BMI 23.07 kg/(m^2). Body surface area is 1.79 meters squared. Exam limited to gross visualization where appropriate due to COVID-19. Gen.: This is an age-appropriate patient in no acute distress. Head: Appears atraumatic with no visible lesions. Eyes: Pupils equally round and reactive to light, extraocular muscles are intact. Neck: Supple. Mouth: Mucous membranes appeared to be moist. Respiratory: Appears to be respiring comfortably. Neurologic: Nonfocal to gross visualization. Alert and oriented 3. Psychiatric: No evidence of inappropriate anxiety or depression. Skin: Visible areas of skin without rash, lesions, wounds or petechiae. ALLERGIES: ALLERGIES No Known Allergies MEDICATIONS: metoclopramide HCl (REGLAN) 10 mg tablet TAKE ONE TABLET BY MOUTH THREE TIMES A DAY WITH MEALS [id number] (CREON 24) 24,000-76,000 -120,000 unit delayed release capsule Take 2 capsules by mouth three times daily with meals. folic acid 1 mg tablet Take 1 tablet by mouth once daily. Cholestyramine-Aspartame (CHOLESTYRAMINE LIGHT) 4 gram powder Take 4 g by mouth three times daily with meals. glipiZIDE (GLUCOTROL) 5 mg tablet Take 5 mg by mouth twice daily before meals. JARDIANCE 25 mg tablet ELIQUIS 2.5 mg tab tab(s) Take 2.5 mg by mouth twice daily. venlafaxine ER (EFFEXOR XR) 75 mg 24 hr capsule TAKE 1 CAPSULE BY MOUTH ONE TIME A DAY metoprolol succinate ER (TOPROL XL) 25 mg 24 hr tablet Take 25 mg by mouth once daily. ALPRAZolam (XANAX) 0.25 mg tablet Take 0.25 mg by mouth as needed. FLUoxetine HCl (PROZAC) 40 mg capsule Take 40 mg by mouth twice daily. acetaminophen (TYLENOL) 650 mg/20.3 mL soln Take 20.3 mL by mouth every 6 hours as needed. atorvastatin (LIPITOR) 40 mg tablet Take 40 mg by mouth daily at bedtime. nitroglycerin sublingual (NITROSTAT) 0.4 mg SL tablet Dissolve 0.4 mg under the tongue every 5 minutes as needed. LABORATORY VALUES: WBC (k/uL) Date Value 07/03/2022 3.34 (L) RBC (m/uL) Date Value 07/03/2022 2.55 (L) Hemoglobin (g/dL) Date Value 07/03/2022 8.7 (L) Hematocrit (%) Date Value 07/03/2022 27.5 (L) MCV (fL) Date Value 07/03/2022 107.8 (H) MCH (pg) Date Value 07/03/2022 34.1 (H) MCHC (g/dL) Date Value 07/03/2022 31.6 RDW-CV (%) Date Value 07/03/2022 13.3 Platelet Count (k/uL) Date Value 07/03/2022 231 MPV (fL) Date Value 07/03/2022 8.8 (L) Glucose (mg/dL) Date Value 07/03/2022 292 (H) BUN (mg/dL) Date Value 07/03/2022 23 Creatinine (mg/dL) Date Value 07/03/2022 0.70 (L) Sodium (mmol/L) Date Value 07/03/2022 130 (L) Potassium (mmol/L) Date Value 07/03/2022 4.4 Chloride (mmol/L) Date Value 07/03/2022 102 CO2 (mmol/L) Date Value 07/03/2022 21 (L) Protein, Total (g/dL) Date Value 07/03/2022 6.3 Albumin (g/dL) Date Value 07/03/2022 3.5 (L) Calcium, Total (mg/dL) Date Value 07/03/2022 8.5 Alkaline Phosphatase (U/L) Date Value 07/03/2022 140 (H) Bilirubin, Total (mg/dL) Date Value 07/03/2022 0.2 AST (U/L) Date Value 07/03/2022 27 ALT (U/L) Date Value 07/03/2022 32 DIAGNOSIS: No diagnosis found. PAST MEDICAL HISTORY Diagnosis Date Anemia Anxiety Bleeding ulcer 11/15/2016 required 5 blood transfusions Coronary artery disease involving [place] coronary artery Diabetes mellitus (HCC) 2017 Duodenal cancer (HCC) Dyslipidemia Fatigue Glaucoma Hypertension Myocardial infarction (HCC) 05/15/2011 PTSD (post-traumatic stress disorder) PAST SURGICAL HISTORY Procedure Laterality Date ANGIOPLASTY HX 05/15/2011 2 stents s/p MD;[facility] CHOLECYSTECTOMY 08/11/2017 [facility] COLONOSCOPY PAST SURGICAL HISTORY OF Cardiac Stents x2 PAST SURGICAL HISTORY OF 09/2017 Whipple PICC LINE INSERT/CONSULT 08/16/2017 Social History Tobacco Use Smoking status: Former Types: Cigarettes Quit date: 2010 Years since quittin.0 Passive exposure: Past Smokeless tobacco: Never Vaping Use Vaping Use: Never used Substance Use Topics Alcohol use: Yes Alcohol/week: 2.5 standard drinks Types: 1 Cans of Beer (12oz) per week Comment: occasional beer Drug use: No FAMILY HISTORY Problem Relation Age of Onset Cancer Sister I spent a total of 30 minutes on the date of the service which included preparing to see the patient, [id number] patient care, completing clinical documentation, obtaining and/or reviewing separately obtained history, performing a medically appropriate examination, counseling and educating the pat ient/family/caregiver and ordering medications, tests, or procedures. Zahra Buitrago MD, [facility] [place], [place] CC: David Caputo MD [address] [place] [id number] documented in this encounterC[facility]12-[facility]22 NoteHNO ID: [id number] Author: Sandra Patiño Service: ? Author Type: ? Type: Progress Notes Filed: 06/06/2022 2:36 PM Note Text: Patient Identification confirmed: yes. Injection given and documented on AUG per provider order. [facility]ño[facility] NoteU[facility]12-[facility]22 History of Present illness Narrative* Sandra Patiño - 06/06/2022 2:34 PM EST Patient Identification confirmed: yes. Injection given and documented on MAR per provider order. Sandra Patiño documented in this encounterCleveland [facility]12-09-2022 Instructions* Patient Instructions* Zahra Buitrago MD - 06/06/2022 2:23 PM EST B12 shot today and every 4 weeks. Labs pending today Triage to call results Thursday Monoferric 1000 mg if indicated. Patient will continue folic acid 1 mg daily as Rx'd. RTC in 4 weeks for follow-up, labs and B12 and CT's RTC same day as scans and labs documented in this encounterCleveland Clinic [facility]12-09-2022 History of Present illness Narrative* Zahra Buitrago MD - 06/06/2022 1:57 PM EST Images from the original note were not included. NAME: Rocio Jackson CLINIC NO.: [id number] DATE OF SERVICE: June 06, 2022 (Iftikhar) Some elements in this clinic note that are critical to medical decision making have been carefully reviewed and included from a prior clinic note dated: May 08, 2022 (Iftikhar) Referring Provider: Dr. Vanessa Bejarano Additional Clinicians involved in Rocio Jackson's care: Dr. David Caputo CC: Follow up on anemia. 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 Completed adjuvant chemotherapy in December 2017 with Xeloda and Gemzar. No evidence of recurrent disease on CT imaging from July 2019. VANNESA on review of his most recent scans. Anemia, unspecified type He does have a history of iron deficiency anemia requiring IV iron in 2018. At this time he has macrocytic anemia. Today we discussed his positive KERRI and his inappropriately low/normal erythropoietin. I offered him rheumatology consult he wanted to wait for now. I also offered him regular Aranesp. He would prefer to monitor for now given his current hemoglobin level. We will continue to monitor his hemoglobin closely every 2 months for now. He was instructed to notify us immediately if he has any black or bloody stools. He has significant components of anemia of chronic disease. PLAN: B12 shot today and every 4 weeks. Labs pending today Triage to call results Thursday Monoferric 1000 mg if indicated. Patient will continue folic acid 1 mg daily as Rx'd. RTC in 4 weeks for follow-up, labs and B12 and CT's RTC same day as scans and labs 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 H/O iron deficiency anemia 3. Folate deficiency anemia 4. B12 deficiency anemia Treatment History: 1. Pancreatic duodenectomy 09/30/2017 2. Adjuvant chemotherapy with Gemzar and Xeloda (per Dr. Reyez) 11/13/17-01/22/18 3. IV iron given in April 2018 HPI: Updated Visit, June 06, 2022: Rocio is 67 years old and returns with his son Joaquin. Worked at a [employer]. Doing well overall is at his baseline. Anemia unchanged. Not sure B12 shots are impacting him significantly - will re-visit next visit. Updated Visit, May 08, 2022: H/H improved with addition of folic acid as well as iron infusion. Continue B12 shots Still feels sluggish yet improved overall. Iron studies pending today. No abdominal pain or nausea. Updated Visit, April 10, 2022: Rocio is 66 years old and returns with his son for review of laboratories. He has had worsening anemia since his last visit a month ago and notes that he had some blood in his underwear 3-4 days ago. I am not sure from what he tells me that he is actively bleeding or not. Chronic left sided low back pain. TIBC and iron is low - unsure if he's some underlying inflammatory problem causing elevated ferritin. Updated Visit, March 13, 2022: Rocio Jackson returns for scheduled follow-up. Overall he is feeling fairly well. He denies any obvious signs of bleeding. No black dark stools. He denies any abnormal bruising. He denies cough and shortness of breath. He states that he is breathing heavily due to anxiety. He has not yet picked up the prescription for folic acid. Updated Visit, February 13, 2022: Reviewed scans from 02/06/2022 which were negative for recurrence Breathing heavy but doesn't feel dyspneic Hgb decreased, may need iron. Comparison was from 2 years ago. Updated Visit, December 05, 2021: Wanted to re-establish care since his DrDary Retired from practice after leaving this practice.he has had no evidence of progression or that of recurrence since I last saw and spoke with him 2 years ago.. He then Transitioned care outside of this practice and is now transitioning back. I reviewed his outside records. Still has Diarrhea but he generally deals with it well. Hasn't been restaged.Otherwise feels well. Updated Visit, January 30, 2020: Rocio is 64 and was sent to me for follow-up with persisting fatigue. He is status post Whipple procedure in September 2017. His suspicion was that his anemia was causing his degree of fatigue but I believe he has an other cause. All need reports from his endoscopy and colonoscopy as well as reports from his rn observation. His PFTs are pending, and he was supposed to have CT scans prior to this visit. He will return after he has these done. He is accompanied by his sister Briana. 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 He completed adjuvant chemotherapy in December 2017 with Xeloda plus Gemzar. Today he is here with his sister Briana. He reports that he is fatigued but this is no different thanhis baseline. Since this is so incongruent with his degree of macrocytic anemia and he doesn't qualify for erythropoietin from a renal perspective, I strongly recommended that he needs a endoscopic evaluation in addition to a cardiopulmonary workup. If those are all negative and I would recommend abone marrow biopsy for further investigation. RADIOGRAPHIC DATA: Reviewed on March 13, 2022: 3. 02/06/2022 CT chest abdomen and pelvis with IV contrast: 1. New reticulonodular opacities in the right upper lobe most likely infectious/inflammatory in etiology. Consider follow-up to complete resolution. 2. Marked motion artifact. 3. Findings compatible with previous granulomatous disease. 1. Nonspecific borderline mesenteric lymphadenopathy, stable since 02/20/20. 2. New trace pelvic ascites. 3. Nonspecific persistent diffuse thickening of the urinary bladder wall. 4. Stool is noted throughout the colon. 5. Prominent motion artifact. 2. 08/15/2019 CT chest abdomen and pelvis with IV contrast: 1. Several mildly prominent central mesenteric lymph nodes are again identified, stable from the prior examination of 12/21/2018. 2. Postoperative changes, compatible with prior Whipple's procedure. No CT evidence for recurrent mass. 1. There has been interval development of minimal patchy groundglass opacity, as well as a small consolidative opacity within the left lingula, likely infectious/inflammatory nature. 2. No suspicious pulmonary nodule is appreciated. No substantial intrathoracic adenopathy is identified. Evidence for priorgranulomatous disease. 1. 12/21/2018 CT CAP: Stable CT examination of the chest as above. Several mildly prominent central mesenteric lymph nodes are again identified, less conspicuous when compared to the prior study of 06/04/2018. Postoperative changes, compatible with prior Whipple's procedure. PATHOLOGIC PROFILE/MOLECULAR DATA: Reviewed on December 12, 2019 1. Pancreas and duodenum, pancreaticoduodenectomy (D) Invasive poorly differentiated adenocarcinomaof the ampulla of Vater (4.5 cm) that extends into the duodenum and pancreas. - Metastatic adenocarcinoma involving three of eleven lymph nodes (3/11). - Lymphovascular invasion and perineural invasion are seen. - Surgical resection margins are free of tumor. REVIEW OF SYSTEMS Per HPI and otherwise negative by full review of organ systems. ECOG PERFORMANCE STATUS: 1 PHYSICAL EXAMINATION: Vitals: BP 109/60 Pulse 66 Temp (Src) 97.1 (Temporal) Resp 24 Ht 5' 7.244 (1.71m) Wt 145lb (65.8kg) SpO2 100% BMI 22.55 kg/(m^2). Body surface area is 1.77 meters squared. Exam limited to gross visualization where appropriate due to COVID-19. Gen.: This is an age-appropriate patient in no acute distress. Head: Appears atraumatic with no visible lesions. Eyes: Pupils equally round and reactive to light, extraocular muscles are intact. Neck: Supple. Mouth: Mucous membranes appeared to be moist. Respiratory: Appears to be respiring comfortably. Neurologic: Nonfocal to gross visualization. Alert and oriented 3. Psychiatric: No evidence of inappropriate anxiety or depression. Skin: Visible areas of skin without rash, lesions, wounds or petechiae. ALLERGIES: ALLERGIES No Known Allergies MEDICATIONS: metoclopramide HCl (REGLAN) 10 mg tablet TAKE ONE TABLET BY MOUTH THREE TIMES A DAY WITH MEALS exavsp-bfydrotj-gotjogt (CREON 24) 24,000-76,000 -120,000 unit delayed release capsule Take 2 capsules by mouth three times daily with meals. folic acid 1 mg tablet Take 1 tablet by mouth once daily. Cholestyramine-Aspartame (CHOLESTYRAMINE LIGHT) 4 gram powder Take 4 g by mouth three times daily with meals. glipiZIDE (GLUCOTROL) 5 mg tablet Take 5 mg by mouth twice daily before meals. JARDIANCE 25 mg tablet ELIQUIS 2.5 mg tab tab(s) Take 2.5 mg by mouth twice daily. venlafaxine ER (EFFEXOR XR) 75 mg 24 hr capsule TAKE 1 CAPSULE BY MOUTH ONE TIME A DAY metoprolol succinate ER (TOPROL XL) 25 mg 24 hr tablet Take 25 mg by mouth once daily. ALPRAZolam (XANAX) 0.25 mg tablet Take 0.25 mg by mouth as needed. FLUoxetine HCl (PROZAC) 40 mg capsule Take 40 mg by mouth twice daily. acetaminophen (TYLENOL) 650 mg/20.3 mL soln Take 20.3 mL by mouth every 6 hours as needed. atorvastatin (LIPITOR) 40 mg tablet Take 40 mg by mouth daily at bedtime. nitroglycerin sublingual (NITROSTAT) 0.4 mg SL tablet Dissolve 0.4 mg under the tongue every 5 minutes as needed. LABORATORY VALUES: WBC (k/uL) Date Value 06/06/2022 3.01 (L) RBC (m/uL) Date Value 06/06/2022 2.58 (L) Hemoglobin (g/dL) Date Value 06/06/2022 9.1 (L) Hematocrit (%) Date Value 06/06/2022 28.5 (L) MCV (fL) Date Value 06/06/2022 110.5 (H) MCH (pg) Date Value 06/06/2022 35.3 (H) MCHC (g/dL) Date Value 06/06/2022 31.9 RDW-CV (%) Date Value 06/06/2022 15.1 (H) Platelet Count (k/uL) Date Value 06/06/2022 234 MPV (fL) Date Value 06/06/2022 9.1 Glucose (mg/dL) Date Value 06/06/2022 106 (H) BUN (mg/dL) Date Value 06/06/2022 20 Creatinine (mg/dL) Date Value 06/06/2022 0.75 Sodium (mmol/L) Date Value 06/06/2022 136 Potassium (mmol/L) Date Value 06/06/2022 4.6 Chloride (mmol/L) Date Value 06/06/2022 106 (H) CO2 (mmol/L) Date Value 06/06/2022 22 Protein, Total (g/dL) Date Value 06/06/2022 6.4 Albumin (g/dL) Date Value 06/06/2022 3.5 (L) Calcium, Total (mg/dL) Date Value 06/06/2022 8.8 Alkaline Phosphatase (U/L) Date Value 06/06/2022 148 (H) Bilirubin, Total (mg/dL) Date Value 06/06/2022 0.4 AST (U/L) Date Value 06/06/2022 37 ALT (U/L) Date Value 06/06/2022 43 DIAGNOSIS: (C24.1) Cancer of ampulla of Vater (HCC) (primary encounter diagnosis) Plan: CT ABD/PEL W IVCON, iv contrast (will be provided with radiology test), enteric contrast (will be provided with radiology test), CT CHEST W IVCON, CA 19-9 BLD (J84.9) Interstitial pulmonary disease (HCC) Plan: CT ABD/PEL W IVCON, iv contrast (will be provided with radiology test), enteric contrast (will be provided with radiology test), CT CHEST W IVCON (D50.9) Iron deficiency anemia, unspecified iron deficiency anemia type (D51.9) Anemia due to vitamin B12 deficiency, unspecified B12 deficiency type Plan: CT ABD/PEL W IVCON, iv contrast (will be provided with radiology test), enteric contrast (will be provided with radiology test), CT CHEST W IVCON, CBC + DIFF, COMP METABOLIC PANEL, IRON + TIBC, FERRITIN BLD, VITAMIN B12 BLOOD, FOLATE SERUM PAST MEDICAL HISTORY Diagnosis Date Anemia Anxiety Bleeding ulcer 11/15/2016 required 5 blood transfusions Coronary artery disease involving [place] coronary artery Diabetes mellitus (HCC) 2016 Duodenal cancer (HCC) Dyslipidemia Fatigue Glaucoma Hypertension Myocardial infarction (HCC) 05/15/2011 PTSD (post-traumatic stress disorder) PAST SURGICAL HISTORY Procedure Laterality Date ANGIOPLASTY HX 05/15/2011 2 stents s/p MD;[facility] CHOLECYSTECTOMY 08/11/2017 [facility] COLONOSCOPY PAST SURGICAL HISTORY OF Cardiac Stents x2 PAST SURGICAL HISTORY OF 09/2017 [place] PICC LINE INSERT/CONSULT 08/16/2017 Social History Tobacco Use Smoking status: Former Types: Cigarettes Quit date: 2010 Years since quittin.9 Passive exposure: Past Smokeless tobacco: Never Vaping Use Vaping Use: Never used Substance Use Topics Alcohol use: Yes Alcohol/week: 2.5 standard drinks Types: 1 Cans of Beer (12oz) per week Comment: occasional beer Drug use: No FAMILY HISTORY Problem Relation Age of Onset Cancer Sister I spent a total of 25 minutes on the date of the service which included preparing to see the patient, [id number] patient care, completing clinical documentation, obtaining and/or reviewing separately obtained history, performing a medically appropriate examination, counseling and educating the pat ient/family/caregiver and ordering medications, tests, or procedures. Zahra Buitrago MD, [place], [place] CC: David Caputo MD [address] [facility] [phone] documented in this encounterCleveland [facility]11-15-2022 NotePROCEDURE: XR HIP LT 2 3V W PELVIS HISTORY: Low back pain ; acute left hip pain since falling one week ago COMPARISON: None. FINDINGS: BONES:No fracture, acute abnormality, or significant arthropathy. SOFT TISSUES:No visible soft tissue swelling. EFFUSION:None visible. OTHER: Negative. IMPRESSION: 1. No acute bone abnormality or significant degenerative joint disease. Electronically authenticated by: REBA REID Date: 2022-05-13 07:57The [facility] [id number] NoteU[facility]11-10-2022 History of Present illness Narrative* Zahra Buitrago MD - 05/08/2022 2:00 PM EST Images from the original note were not included. NAME: Rocio Jackson CLINIC NO.: [id number] DATE OF SERVICE: May 08, 2022 (Iftikhar) Some elements in this clinic note that are critical to medical decision making have been carefully reviewed and included from a prior clinic note dated: April 10, 2022 (Iftikhar) Referring Provider: Dr. Vanessa Bejarano Additional Clinicians involved in Rocio Jackson's care: Dr. David Caputo CC: Follow up on anemia. 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 Completed adjuvant chemotherapy in December 2017 with Xeloda and Gemzar. No evidence of recurrent disease on CT imaging from July 2019. VANNESA on review of his most recent scans. Anemia, unspecified type He does have a history of iron deficiency anemia requiring IV iron in 2018. At this time he has macrocytic anemia. Today we discussed his positive KERRI and his inappropriately low/normal erythropoietin. I offered him rheumatology consult he wanted to wait for now. I also offered him regular Aranesp. He would prefer to monitor for now given his current hemoglobin level. We will continue to monitor his hemoglobin closely every 2 months for now. He was instructed to notify us immediately if he has any black or bloody stools. He has significant components of anemia of chronic disease. PLAN: B12 shot today and every 4 weeks. Labs pending today Triage to call results tomorrow Monoferric 1000 mg if indicated. Patient will continue folic acid 1 mg daily as Rx'd. RTC in 4 weeks for follow-up, labs and B12. Will need repeat CT in 2 months for reticulonodular / inflammatory changes. 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 H/O iron deficiency anemia 3. Folate deficiency anemia 4. B12 deficiency anemia Treatment History: 1. Pancreatic duodenectomy 09/30/2017 2. Adjuvant chemotherapy with Gemzar and Xeloda (per Dr. Reyez) 11/13/17-01/22/18 3. IV iron given in April 2018 HPI: Updated Visit, May 08, 2022: H/H improved with addition of folic acid as well as iron infusion. Continue B12 shots Still feels sluggish yet improved overall. Iron studies pending today. No abdominal pain or nausea. Updated Visit, April 10, 2022: Rocio is 66 years old and returns with his son for review of laboratories. He has had worsening anemia since his last visit a month ago and notes that he had some blood in his underwear 3-4 days ago. I am not sure from what he tells me that he is actively bleeding or not. Chronic left sided low back pain. TIBC and iron is low - unsure if he's some underlying inflammatory problem causing elevated ferritin. Updated Visit, March 13, 2022: Rocio Jackson returns for scheduled follow-up. Overall he is feeling fairly well. He denies any obvious signs of bleeding. No black dark stools. He denies any abnormal bruising. He denies cough and shortness of breath. He states that he is breathing heavily due to anxiety. He has not yet picked up the prescription for folic acid. Updated Visit, February 13, 2022: Reviewed scans from 02/06/2022 which were negative for recurrence Breathing heavy but doesn't feel dyspneic Hgb decreased, may need iron. Comparison was from 2 years ago. Updated Visit, December 05, 2021: Wanted to re-establish care since his DrDary Retired from practice after leaving this practice.he has had no evidence of progression or that of recurrence since I last saw and spoke with him 2 years ago.. He then Transitioned care outside of this practice and is now transitioning back. I reviewed his outside records. Still has Diarrhea but he generally deals with it well. Hasn't been restaged.Otherwise feels well. Updated Visit, January 30, 2020: Rocio is 64 and was sent to me for follow-up with persisting fatigue. He is status post Whipple procedure in September 2017. His suspicion was that his anemia was causing his degree of fatigue but I believe he has an other cause. All need reports from his endoscopy and colonoscopy as well as reports from his rn observation. His PFTs are pending, and he was supposed to have CT scans prior to this visit. He will return after he has these done. He is accompanied by his sister Briana. 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 He completed adjuvant chemotherapy in December 2017 with Xeloda plus Gemzar. Today he is here with his sister Briana. He reports that he is fatigued but this is no different thanhis baseline. Since this is so incongruent with his degree of macrocytic anemia and he doesn't qualify for erythropoietin from a renal perspective, I strongly recommended that he needs a endoscopic evaluation in addition to a cardiopulmonary workup. If those are all negative and I would recommend abone marrow biopsy for further investigation. RADIOGRAPHIC DATA: Reviewed on March 13, 2022: 3. 02/06/2022 CT chest abdomen and pelvis with IV contrast: 1. New reticulonodular opacities in the right upper lobe most likely infectious/inflammatory in etiology. Consider follow-up to complete resolution. 2. Marked motion artifact. 3. Findings compatible with previous granulomatous disease. 1. Nonspecific borderline mesenteric lymphadenopathy, stable since 02/20/20. 2. New trace pelvic ascites. 3. Nonspecific persistent diffuse thickening of the urinary bladder wall. 4. Stool is noted throughout the colon. 5. Prominent motion artifact. 2. 08/15/2019 CT chest abdomen and pelvis with IV contrast: 1. Several mildly prominent central mesenteric lymph nodes are again identified, stable from the prior examination of 12/21/2018. 2. Postoperative changes, compatible with prior Whipple's procedure. No CT evidence for recurrent mass. 1. There has been interval development of minimal patchy groundglass opacity, as well as a small consolidative opacity within the left lingula, likely infectious/inflammatory nature. 2. No suspicious pulmonary nodule is appreciated. No substantial intrathoracic adenopathy is identified. Evidence for priorgranulomatous disease. 1. 12/21/2018 CT CAP: Stable CT examination of the chest as above. Several mildly prominent central mesenteric lymph nodes are again identified, less conspicuous when compared to the prior study of 06/04/2018. Postoperative changes, compatible with prior Whipple's procedure. PATHOLOGIC PROFILE/MOLECULAR DATA: Reviewed on December 12, 2019 1. Pancreas and duodenum, pancreaticoduodenectomy (D) Invasive poorly differentiated adenocarcinomaof the ampulla of Vater (4.5 cm) that extends into the duodenum and pancreas. - Metastatic adenocarcinoma involving three of eleven lymph nodes (3/11). - Lymphovascular invasion and perineural invasion are seen. - Surgical resection margins are free of tumor. REVIEW OF SYSTEMS Per HPI and otherwise negative by full review of organ systems. ECOG PERFORMANCE STATUS: 1 PHYSICAL EXAMINATION: Vitals: BP 102/58 Pulse 63 Temp (Src) 97.8 (Temporal) Resp 16 Ht 5' 7.244 (1.71m) Wt 137lb 9.6 oz (62.4kg) SpO2 97% BMI 21.40 kg/(m^2). Body surface area is 1.72 meters squared. Exam limited to gross visualization where appropriate due to COVID-19. Gen.: This is an age-appropriate patient in no acute distress. Head: Appears atraumatic with no visible lesions. Eyes: Pupils equally round and reactive to light, extraocular muscles are intact. Neck: Supple. Mouth: Mucous membranes appeared to be moist. Respiratory: Appears to be respiring comfortably. Neurologic: Nonfocal to gross visualization. Alert and oriented 3. Psychiatric: No evidence of inappropriate anxiety or depression. Skin: Visible areas of skin without rash, lesions, wounds or petechiae. ALLERGIES: ALLERGIES No Known Allergies MEDICATIONS: anliao-bemspbpl-iqhpdfe (CREON 24) 24,000-76,000 -120,000 unit delayed release capsule Take 2 capsules by mouth three times daily with meals. folic acid 1 mg tablet Take 1 tablet by mouth once daily. metoclopramide HCl (REGLAN) 10 mg tablet Take 1 tablet by mouth three times daily with meals. Cholestyramine-Aspartame (CHOLESTYRAMINE LIGHT) 4 gram powder Take 4 g by mouth three times daily with meals. glipiZIDE (GLUCOTROL) 5 mg tablet Take 5 mg by mouth twice daily before meals. JARDIANCE 25 mg tablet ELIQUIS 2.5 mg tab tab(s) Take 2.5 mg by mouth twice daily. venlafaxine ER (EFFEXOR XR) 75 mg 24 hr capsule TAKE 1 CAPSULE BY MOUTH ONE TIME A DAY metoprolol succinate ER (TOPROL XL) 25 mg 24 hr tablet Take 25 mg by mouth once daily. ALPRAZolam (XANAX) 0.25 mg tablet Take 0.25 mg by mouth as needed. FLUoxetine HCl (PROZAC) 40 mg capsule Take 40 mg by mouth twice daily. acetaminophen (TYLENOL) 650 mg/20.3 mL soln Take 20.3 mL by mouth every 6 hours as needed. atorvastatin (LIPITOR) 40 mg tablet Take 40 mg by mouth daily at bedtime. nitroglycerin sublingual (NITROSTAT) 0.4 mg SL tablet Dissolve 0.4 mg under the tongue every 5 minutes as needed. LABORATORY VALUES: WBC (k/uL) Date Value 05/08/2022 3.35 (L) RBC (m/uL) Date Value 05/08/2022 2.83 (L) Hemoglobin (g/dL) Date Value 05/08/2022 9.4 (L) Hematocrit (%) Date Value 05/08/2022 30.2 (L) MCV (fL) Date Value 05/08/2022 106.7 (H) MCH (pg) Date Value 05/08/2022 33.2 MCHC (g/dL) Date Value 05/08/2022 31.1 RDW-CV (%) Date Value 05/08/2022 15.9 (H) Platelet Count (k/uL) Date Value 05/08/2022 238 MPV (fL) Date Value 05/08/2022 8.7 (L) Glucose (mg/dL) Date Value 05/08/2022 96 BUN (mg/dL) Date Value 05/08/2022 30 (H) Creatinine (mg/dL) Date Value 05/08/2022 0.76 Sodium (mmol/L) Date Value 05/08/2022 136 Potassium (mmol/L) Date Value 05/08/2022 4.1 Chloride (mmol/L) Date Value 05/08/2022 110 (H) CO2 (mmol/L) Date Value 05/08/2022 17 (L) Protein, Total (g/dL) Date Value 05/08/2022 6.8 Albumin (g/dL) Date Value 05/08/2022 3.7 (L) Calcium, Total (mg/dL) Date Value 05/08/2022 8.9 Alkaline Phosphatase (U/L) Date Value 05/08/2022 154 (H) Bilirubin, Total (mg/dL) Date Value 05/08/2022 0.4 AST (U/L) Date Value 05/08/2022 30 ALT (U/L) Date Value 05/08/2022 32 DIAGNOSIS: (D50.9) Iron deficiency anemia, unspecified iron deficiency anemia type (primary encounter diagnosis) (D51.9) Anemia due to vitamin B12 deficiency, unspecified B12 deficiency type (D52.9) Anemia due to folic acid deficiency, unspecified deficiency type (C24.1) Cancer of ampulla of Vater (HCC) PAST MEDICAL HISTORY Diagnosis Date Anemia Anxiety Bleeding ulcer 11/15/2016 required 5 blood transfusions Coronary artery disease involving [place] coronary artery Diabetes mellitus (HCC) 2017 Duodenal cancer (HCC) Dyslipidemia Fatigue Glaucoma Hypertension Myocardial infarction (HCC) 05/15/2011 PTSD (post-traumatic stress disorder) PAST SURGICAL HISTORY Procedure Laterality Date ANGIOPLASTY HX 05/15/2011 2 stents s/p MD;[facility] CHOLECYSTECTOMY 08/11/2017 [facility] COLONOSCOPY PAST SURGICAL HISTORY OF Cardiac Stents x2 PAST SURGICAL HISTORY OF 09/2017 Whipple PICC LINE INSERT/CONSULT 08/16/2017 Social History Tobacco Use Smoking status: Former Types: Cigarettes Quit date: 2010 Years since quittin.8 Passive exposure: Past Smokeless tobacco: Never Vaping Use Vaping Use: Never used Substance Use Topics Alcohol use: Yes Alcohol/week: 2.5 standard drinks Types: 1 Cans of Beer (12oz) per week Comment: occasional beer Drug use: No FAMILY HISTORY Problem Relation Age of Onset Cancer Sister I spent a total of 25 minutes on the date of the service which included preparing to see the patient, [id number] patient care, completing clinical documentation, obtaining and/or reviewing separately obtained history, performing a medically appropriate examination, counseling and educating the pat ient/family/caregiver and ordering medications, tests, or procedures. Zahra Buitrago MD, CPE [place], [place] CC: David Caputo MD [address] [place] [phone] documented in this encounterC[facility]22 Instructions* Patient Instructions* Zahra Buitrago MD - 05/08/2022 1:59 PM EST B12 shot today and every 4 weeks. Labs pending today Triage to call results tomorrow Monoferric 1000 mg if indicated. Patient will continue folic acid 1 mg daily as Rx'd. RTC in 4 weeks for follow-up, labs and B12. Will need repeat CT in 2 months for reticulonodular / inflammatory changes. documented in this encounterC[facility]10-13-2022 History of Present illness Narrative* Sofia Crouch RN - 04/10/2022 2:29 PM EDT Spoke with Pharmacy. Monoferric can be ran over 20 minutes and premeds can be omitted today per infusion protocol. Pt had recent infusion with no issues. Sofia Crouch RN documented in this encounterC[facility]10-13-2022 Instructions* Patient Instructions* Zahra Buitrago MD - 04/10/2022 1:30 PM EDT B12 shot today and every 4 weeks. Labs again today please Monoferric 1000 mg today. Patient will start folic acid 1 mg daily as soon as the prescription is filled. RTC in 4 weeks for follow-up, labs and B12. Will need repeat CT in 3 months for reticulonodular / inflammatory changes. documented in this encounterC[facility]10-13-2022 History of Present illness Narrative* Zahra Buitrago MD - 04/10/2022 1:08 PM EDT Images from the original note were not included. NAME: Rocio Jackson CLINIC NO.: [id number] DATE OF SERVICE: April 10, 2022 (Iftikhar) Some elements in this clinic note that are critical to medical decision making have been carefully reviewed and included from a prior clinic note dated: March 13, 2022 (Henry) Referring Provider: Dr. Vanessa Bejarano Additional Clinicians involved in Rocio Jackson's care: Dr. David Caputo CC: Follow up on anemia. 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 Completed adjuvant chemotherapy in December 2017 with Xeloda and Gemzar. No evidence of recurrent disease on CT imaging from July 2019. VANNESA on review of his most recent scans. Anemia, unspecified type He does have a history of iron deficiency anemia requiring IV iron in 2018. At this time he has macrocytic anemia. Today we discussed his positive KERRI and his inappropriately low/normal erythropoietin. I offered him rheumatology consult he wanted to wait for now. I also offered him regular Aranesp. He would prefer to monitor for now given his current hemoglobin level. We will continue to monitor his hemoglobin closely every 2 months for now. He was instructed to notify us immediately if he has any black or bloody stools. He has significant components of anemia of chronic disease. PLAN: B12 shot today and every 4 weeks. Labs again today please Monoferric 1000 mg today. Patient will start folic acid 1 mg daily as soon as the prescription is filled. RTC in 4 weeks for follow-up, labs and B12. Will need repeat CT in 3 months for reticulonodular / inflammatory changes. 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 H/O iron deficiency anemia 3. Folate deficiency anemia 4. B12 deficiency anemia Treatment History: 1. Pancreatic duodenectomy 09/30/2017 2. Adjuvant chemotherapy with Gemzar and Xeloda (per Dr. Reyez) 11/13/17-01/22/18 3. IV iron given in April 2018 HPI: Updated Visit, April 10, 2022: Rocio is 66 years old and returns with his son for review of laboratories. He has had worsening anemia since his last visit a month ago and notes that he had some blood in his underwear 3-4 days ago. I am not sure from what he tells me that he is actively bleeding or not. Chronic left sided low back pain. TIBC and iron is low - unsure if he's some underlying inflammatory problem causing elevated ferritin. Updated Visit, March 13, 2022: Rocio Jackson returns for scheduled follow-up. Overall he is feeling fairly well. He denies any obvious signs of bleeding. No black dark stools. He denies any abnormal bruising. He denies cough and shortness of breath. He states that he is breathing heavily due to anxiety. He has not yet picked up the prescription for folic acid. Updated Visit, February 13, 2022: Reviewed scans from 02/06/2022 which were negative for recurrence Breathing heavy but doesn't feel dyspneic Hgb decreased, may need iron. Comparison was from 2 years ago. 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 He then Transitioned care outside of this practice and is now transitioning back. I reviewed his outside records. Still has Diarrhea but he generally deals with it well. Hasn't been restaged.Otherwise feels well. Updated Visit, January 30, 2020: Rocio is 64 and was sent to me for follow-up with persisting fatigue. He is status post Whipple procedure in September 2017. His suspicion was that his anemia was causing his degree of fatigue but I believe he has an other cause. All need reports from his endoscopy and colonoscopy as well as reports from his rn observation. His PFTs are pending, and he was supposed to have CT scans prior to this visit. He will return after he has these done. He is accompanied by his sister Briana. 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 He completed adjuvant chemotherapy in December 2017 with Xeloda plus Gemzar. Today he is here with his sister Briana. He reports that he is fatigued but this is no different thanhis baseline. Since this is so incongruent with his degree of macrocytic anemia and he doesn't qualify for erythropoietin from a renal perspective, I strongly recommended that he needs a endoscopic evaluation in addition to a cardiopulmonary workup. If those are all negative and I would recommend abone marrow biopsy for further investigation. RADIOGRAPHIC DATA: Reviewed on March 13, 2022: 3. 02/06/2022 CT chest abdomen and pelvis with IV contrast: 1. New reticulonodular opacities in the right upper lobe most likely infectious/inflammatory in etiology. Consider follow-up to complete resolution. 2. Marked motion artifact. 3. Findings compatible with previous granulomatous disease. 1. Nonspecific borderline mesenteric lymphadenopathy, stable since 02/20/20. 2. New trace pelvic ascites. 3. Nonspecific persistent diffuse thickening of the urinary bladder wall. 4. Stool is noted throughout the colon. 5. Prominent motion artifact. 2. 08/15/2019 CT chest abdomen and pelvis with IV contrast: 1. Several mildly prominent central mesenteric lymph nodes are again identified, stable from the prior examination of 12/21/2018. 2. Postoperative changes, compatible with prior Whipple's procedure. No CT evidence for recurrent mass. 1. There has been interval development of minimal patchy groundglass opacity, as well as a small consolidative opacity within the left lingula, likely infectious/inflammatory nature. 2. No suspicious pulmonary nodule is appreciated. No substantial intrathoracic adenopathy is identified. Evidence for priorgranulomatous disease. 1. 12/21/2018 CT CAP: Stable CT examination of the chest as above. Several mildly prominent central mesenteric lymph nodes are again identified, less conspicuous when compared to the prior study of 06/04/2018. Postoperative changes, compatible with prior Whipple's procedure. PATHOLOGIC PROFILE/MOLECULAR DATA: Reviewed on December 12, 2019 1. Pancreas and duodenum, pancreaticoduodenectomy (D) Invasive poorly differentiated adenocarcinomaof the ampulla of Vater (4.5 cm) that extends into the duodenum and pancreas. - Metastatic adenocarcinoma involving three of eleven lymph nodes (3/11). - Lymphovascular invasion and perineural invasion are seen. - Surgical resection margins are free of tumor. REVIEW OF SYSTEMS Per HPI and otherwise negative by full review of organ systems. ECOG PERFORMANCE STATUS: 1 PHYSICAL EXAMINATION: Vitals: BP 125/70 Pulse 60 Temp (Src) 97.7 (Temporal) Resp 16 Ht 5' 7.244 (1.71m) Wt 145lb 9.6 oz (66.0kg) SpO2 99% BMI 22.64 kg/(m^2). Body surface area is 1.77 meters squared. Exam limited to gross visualization where appropriate due to COVID-19. Gen.: This is an age-appropriate patient in no acute distress. Head: Appears atraumatic with no visible lesions. Eyes: Pupils equally round and reactive to light, extraocular muscles are intact. Neck: Supple. Mouth: Mucous membranes appeared to be moist. Respiratory: Appears to be respiring comfortably. Neurologic: Nonfocal to gross visualization. Alert and oriented 3. Psychiatric: No evidence of inappropriate anxiety or depression. Skin: Visible areas of skin without rash, lesions, wounds or petechiae. ALLERGIES: ALLERGIES No Known Allergies MEDICATIONS: ehmpha-wshhashz-yjbujaa (CREON 24) 24,000-76,000 -120,000 unit delayed release capsule Take 2 capsules by mouth three times daily with meals. folic acid 1 mg tablet Take 1 tablet by mouth once daily. metoclopramide HCl (REGLAN) 10 mg tablet Take 1 tablet by mouth three times daily with meals. Cholestyramine-Aspartame (CHOLESTYRAMINE LIGHT) 4 gram powder Take 4 g by mouth three times daily with meals. glipiZIDE (GLUCOTROL) 5 mg tablet Take 5 mg by mouth twice daily before meals. JARDIANCE 25 mg tablet ELIQUIS 2.5 mg tab tab(s) Take 2.5 mg by mouth twice daily. venlafaxine ER (EFFEXOR XR) 75 mg 24 hr capsule TAKE 1 CAPSULE BY MOUTH ONE TIME A DAY metoprolol succinate ER (TOPROL XL) 25 mg 24 hr tablet Take 25 mg by mouth once daily. ALPRAZolam (XANAX) 0.25 mg tablet Take 0.25 mg by mouth as needed. FLUoxetine HCl (PROZAC) 40 mg capsule Take 40 mg by mouth twice daily. acetaminophen (TYLENOL) 650 mg/20.3 mL soln Take 20.3 mL by mouth every 6 hours as needed. atorvastatin (LIPITOR) 40 mg tablet Take 40 mg by mouth daily at bedtime. nitroglycerin sublingual (NITROSTAT) 0.4 mg SL tablet Dissolve 0.4 mg under the tongue every 5 minutes as needed. LABORATORY VALUES: Hemoglobin (g/dL) Date Value 04/03/2022 8.6 01/30/2020 11.8 Hematocrit (%) Date Value 04/03/2022 27.2 01/30/2020 36.0 WBC (k/uL) Date Value 04/03/2022 3.42 01/30/2020 5.46 Platelet Count (k/uL) Date Value 04/03/2022 230 01/30/2020 349 DIAGNOSIS: (D50.9) Iron deficiency anemia, unspecified iron deficiency anemia type (primary encounter diagnosis) Plan: CBC + DIFF, COMP METABOLIC PANEL, IRON + TIBC, FERRITIN BLD, VITAMIN B12 BLOOD, FOLATE SERUM, HAPTOGLOBIN BLD, RETIC COUNT, LD LACTATE DEHYDRO, CBC + DIFF, COMP METABOLIC PANEL, IRON + TIBC, FERRITIN BLD, VITAMIN B12 BLOOD, FOLATE SERUM, DISCONTINUED: ferric derisomaltose 1,000 mg in NaCl 0.9% 100 mL (MONOFERRIC) (D51.9) Anemia due to vitamin B12 deficiency, unspecified B12 deficiency type Plan: CBC + DIFF, COMP METABOLIC PANEL, IRON + TIBC, FERRITIN BLD, VITAMIN B12 BLOOD, FOLATE SERUM, HAPTOGLOBIN BLD, RETIC COUNT, LD LACTATE DEHYDRO, CBC + DIFF, COMP METABOLIC PANEL, IRON + TIBC, FERRITIN BLD, VITAMIN B12 BLOOD, FOLATE SERUM (D75.89) Macrocytosis Plan: CBC + DIFF, COMP METABOLIC PANEL, IRON + TIBC, FERRITIN BLD, VITAMIN B12 BLOOD, FOLATE SERUM, HAPTOGLOBIN BLD, RETIC COUNT, LD LACTATE DEHYDRO PAST MEDICAL HISTORY Diagnosis Date Anemia Anxiety Bleeding ulcer 11/15/2016 required 5 blood transfusions Coronary artery disease involving [place] coronary artery Diabetes mellitus (HCC) 2017 Duodenal cancer (HCC) Dyslipidemia Fatigue Glaucoma Hypertension Myocardial infarction (HCC) 05/15/2011 PTSD (post-traumatic stress disorder) PAST SURGICAL HISTORY Procedure Laterality Date ANGIOPLASTY HX 05/15/2011 2 stents s/p MD;[facility] CHOLECYSTECTOMY 08/11/2017 [facility] COLONOSCOPY PAST SURGICAL HISTORY OF Cardiac Stents x2 PAST SURGICAL HISTORY OF 09/2017 Whipple PICC LINE INSERT/CONSULT 08/16/2017 Social History Tobacco Use Smoking status: Former Types: Cigarettes Quit date: 2010 Years since quittin.7 Passive exposure: Past Smokeless tobacco: Never Vaping Use Vaping Use: Never used Substance Use Topics Alcohol use: Yes Alcohol/week: 2.5 standard drinks Types: 1 Cans of Beer (12oz) per week Comment: occasional beer Drug use: No FAMILY HISTORY Problem Relation Age of Onset Cancer Sister I spent a total of 35 minutes on the date of the service which included preparing to see the patient, [id number] patient care, completing clinical documentation, obtaining and/or reviewing separately obtained history, performing a medically appropriate examination, counseling and educating the pat ient/family/caregiver and ordering medications, tests, or procedures. Zahra Buitrago MD, CPE [facility] [place], [place] CC: David Caputo MD [address] [place] [phone] documented in this encounterC[facility]10-12-2022 Miscellaneous Notes* Telephone Encounter - Haley Miller MA - 04/09/2022 11:43 AM EDT Patient has an appt on 04/10/22. Would you like labs, if so place orders, your orders are for everyother week. Haley Miller MA documented in this encounterC[facility]09-29-2022 Miscellaneous Notes* Telephone Encounter - Rola Gordon APRN.CNP - 03/27/2022 11:27 AM EDT The following approved medication requests have been transmitted electronically. Requested Prescriptions Signed Prescriptions Disp Refills cwrnxj-hxcodlpb-cyltwun (CREON 24) 24,000-76,000 -120,000 unit delayed release capsule 540 capsule 1 Sig: Take 2 capsules by mouth three times daily with meals. Authorizing Provider: ROLA GORDON APRN.CNP * Telephone Encounter - Imelda Cartagena RPh - 03/27/2022 8:30 AM EDT Patient's insurance plan covers a 90 day supply. 90 day script pending. documented in this encounterC[facility]09-15-2022 Miscellaneous Notes* Telephone Encounter - Rola Gordon APRN.CNP - 03/13/2022 2:25 PM EDT The following approved medication requests have been transmitted electronically. Requested Prescriptions Signed Prescriptions Disp Refills folic acid 1 mg tablet 90 tablet 3 Sig: Take 1 tablet by mouth once daily. Authorizing Provider: ROLA GORDON APRN.CNP documented in this encounterC[facility]09-15-2022 History of Present illness Narrative* Rola Gordon APRN.CNP - 03/13/2022 1:00 PM EDT Images from the original note were not included. NAME: Rocio Jackson CLINIC NO.: [id number] DATE OF SERVICE: March 13, 2022 Some elements in this clinic note that are critical to medical decision making have been carefully reviewed and included from a prior clinic note dated: February 13, 2022. Referring Provider: Dr. Vanessa Bejarano Additional Clinicians involved in Rociomarisa Jackson's care: Dr. David Caputo CC: Follow up on anemia. 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 Completed adjuvant chemotherapy in December 2017 with Xeloda and Gemzar. No evidence of recurrent disease on CT imaging from July 2019. VANNESA on review of his most recent scans. Anemia, unspecified type He does have a history of iron deficiency anemia requiring IV iron in 2018. At this time he has macrocytic anemia. Today we discussed his positive KERRI and his inappropriately low/normal erythropoietin. I offered him rheumatology consult he wanted to wait for now. I also offered him regular Aranesp. He would prefer to monitor for now given his current hemoglobin level. We will continue to monitor his hemoglobin closely every 2 months for now. He was instructed to notify us immediately if he has any black or bloody stools. PLAN: 1. B12 shot today and every 4 weeks. 2. Monoferric 1000 mg today. 3. 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 Will send a new prescription to patient's pharmacy [facility] choice[facility] [place]. Patient will start folic acid 1 mg daily as soon as the prescription is filled. 4. Patient will return in 4 weeks for follow-up, labs and possible additional iron. 5. Will need repeat CT in 3-4 months for reticulonodular / inflammatory changes. 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 H/O iron deficiency anemia 3. Folate deficiency anemia 4. B12 deficiency anemia Treatment History: 1. Pancreatic duodenectomy 09/30/2017 2. Adjuvant chemotherapy with Gemzar and Xeloda (per Dr. Reyez) 11/13/17-01/22/18 3. IV iron given in April 2018 HPI: Updated Visit, March 13, 2022: Rocio Jackson returns for scheduled follow-up. Overall he is feeling fairly well. He denies any obvious signs of bleeding. No black dark stools. He denies any abnormal bruising. He denies cough and shortness of breath. He states that he is breathing heavily due to anxiety. He has not yet picked up the prescription for folic acid. Updated Visit, February 13, 2022: Reviewed scans from 02/06/2022 which were negative for recurrence Breathing heavy but doesn't feel dyspneic Hgb decreased, may need iron. Comparison was from 2 years ago. Updated Visit, December 05, 2021: Wanted to re-establish care since his DrDary Retired from practice after leaving this practice.he has had no evidence of progression or that of recurrence since I last saw and spoke with him 2 years ago.. He then Transitioned care outside of this practice and is now transitioning back. I reviewed his outside records. Still has Diarrhea but he generally deals with it well. Hasn't been restaged.Otherwise feels well. Updated Visit, January 30, 2020: Rocio is 64 and was sent to me for follow-up with persisting fatigue. He is status post Whipple procedure in September 2017. His suspicion was that his anemia was causing his degree of fatigue but I believe he has an other cause. All need reports from his endoscopy and colonoscopy as well as reports from his rn observation. His PFTs are pending, and he was supposed to have CT scans prior to this visit. He will return after he has these done. He is accompanied by his sister Briana. 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 He completed adjuvant chemotherapy in December 2017 with Xeloda plus Gemzar. Today he is here with his sister Briana. He reports that he is fatigued but this is no different thanhis baseline. Since this is so incongruent with his degree of macrocytic anemia and he doesn't qualify for erythropoietin from a renal perspective, I strongly recommended that he needs a endoscopic evaluation in addition to a cardiopulmonary workup. If those are all negative and I would recommend abone marrow biopsy for further investigation. RADIOGRAPHIC DATA: Reviewed on March 13, 2022: 3. 02/06/2022 CT chest abdomen and pelvis with IV contrast: 1. New reticulonodular opacities in the right upper lobe most likely infectious/inflammatory in etiology. Consider follow-up to complete resolution. 2. Marked motion artifact. 3. Findings compatible with previous granulomatous disease. 1. Nonspecific borderline mesenteric lymphadenopathy, stable since 02/20/20. 2. New trace pelvic ascites. 3. Nonspecific persistent diffuse thickening of the urinary bladder wall. 4. Stool is noted throughout the colon. 5. Prominent motion artifact. 2. 08/15/2019 CT chest abdomen and pelvis with IV contrast: 1. Several mildly prominent central mesenteric lymph nodes are again identified, stable from the prior examination of 12/21/2018. 2. Postoperative changes, compatible with prior Whipple's procedure. No CT evidence for recurrent mass. 1. There has been interval development of minimal patchy groundglass opacity, as well as a small consolidative opacity within the left lingula, likely infectious/inflammatory nature. 2. No suspicious pulmonary nodule is appreciated. No substantial intrathoracic adenopathy is identified. Evidence for priorgranulomatous disease. 1. 12/21/2018 CT CAP: Stable CT examination of the chest as above. Several mildly prominent central mesenteric lymph nodes are again identified, less conspicuous when compared to the prior study of 06/04/2018. Postoperative changes, compatible with prior Whipple's procedure. PATHOLOGIC PROFILE/MOLECULAR DATA: Reviewed on December 12, 2019 1. Pancreas and duodenum, pancreaticoduodenectomy (D) Invasive poorly differentiated adenocarcinomaof the ampulla of Vater (4.5 cm) that extends into the duodenum and pancreas. - Metastatic adenocarcinoma involving three of eleven lymph nodes (3/11). - Lymphovascular invasion and perineural invasion are seen. - Surgical resection margins are free of tumor. REVIEW OF SYSTEMS Per HPI and otherwise negative by full review of organ systems. ECOG PERFORMANCE STATUS: 1 PHYSICAL EXAMINATION: Vitals: BP 119/68 Pulse 74 Temp (Src) 97.1 (Temporal) Resp 20 Ht 5' 7.244 (1.71m) Wt 145lb (65.8kg) SpO2 100% BMI 22.55 kg/(m^2). Body surface area is 1.77 meters squared. Exam limited to gross visualization where appropriate due to COVID-19. Gen.: This is an age-appropriate patient in no acute distress. Head: Appears atraumatic with no visible lesions. Eyes: Pupils equally round and reactive to light, extraocular muscles are intact. Neck: Supple. Mouth: Mucous membranes appeared to be moist. Respiratory: Appears to be respiring comfortably. Neurologic: Nonfocal to gross visualization. Alert and oriented 3. Psychiatric: No evidence of inappropriate anxiety or depression. Skin: Visible areas of skin without rash, lesions, wounds or petechiae. ALLERGIES: ALLERGIES No Known Allergies MEDICATIONS: folic acid 1 mg tablet Take 1 tablet by mouth once daily. metoclopramide HCl (REGLAN) 10 mg tablet Take 1 tablet by mouth three times daily with meals. ynzhtb-qhjvtmnl-vvsqjxe (CREON 24) 24,000-76,000 -120,000 unit delayed release capsule Take 2 capsules by mouth three times daily with meals. Cholestyramine-Aspartame (CHOLESTYRAMINE LIGHT) 4 gram powder Take 4 g by mouth three times daily with meals. glipiZIDE (GLUCOTROL) 5 mg tablet Take 5 mg by mouth twice daily before meals. JARDIANCE 25 mg tablet ELIQUIS 2.5 mg tab tab(s) Take 2.5 mg by mouth twice daily. venlafaxine ER (EFFEXOR XR) 75 mg 24 hr capsule TAKE 1 CAPSULE BY MOUTH ONE TIME A DAY metoprolol succinate ER (TOPROL XL) 25 mg 24 hr tablet Take 25 mg by mouth once daily. ALPRAZolam (XANAX) 0.25 mg tablet Take 0.25 mg by mouth as needed. FLUoxetine HCl (PROZAC) 40 mg capsule Take 40 mg by mouth twice daily. acetaminophen (TYLENOL) 650 mg/20.3 mL soln Take 20.3 mL by mouth every 6 hours as needed. atorvastatin (LIPITOR) 40 mg tablet Take 40 mg by mouth daily at bedtime. nitroglycerin sublingual (NITROSTAT) 0.4 mg SL tablet Dissolve 0.4 mg under the tongue every 5 minutes as needed. LABORATORY VALUES: Hemoglobin (g/dL) Date Value 03/06/2022 9.7 01/30/2020 11.8 Hematocrit (%) Date Value 03/06/2022 30.3 01/30/2020 36.0 WBC (k/uL) Date Value 03/06/2022 3.95 01/30/2020 5.46 Platelet Count (k/uL) Date Value 03/06/2022 256 01/30/2020 349 DIAGNOSIS: (C24.1) Cancer of ampulla of Vater (HCC) (primary encounter diagnosis) (D50.9) Iron deficiency anemia, unspecified iron deficiency anemia type (D51.9) Anemia due to vitamin B12 deficiency, unspecified B12 deficiency type (D52.9) Anemia due to folic acid deficiency, unspecified deficiency type PAST MEDICAL HISTORY Diagnosis Date Anemia Anxiety Bleeding ulcer 11/15/2016 required 5 blood transfusions Coronary artery disease involving [place] coronary artery Diabetes mellitus (HCC) 2017 Duodenal cancer (HCC) Dyslipidemia Fatigue Glaucoma Hypertension Myocardial infarction (HCC) 05/15/2011 PTSD (post-traumatic stress disorder) PAST SURGICAL HISTORY Procedure Laterality Date ANGIOPLASTY HX 05/15/2011 2 stents s/p MD;[facility] CHOLECYSTECTOMY 08/11/2017 [facility] COLONOSCOPY PAST SURGICAL HISTORY OF Cardiac Stents x2 PAST SURGICAL HISTORY OF 09/2017 [facility] PICC LINE INSERT/CONSULT 08/16/2017 Social History Tobacco Use Smoking status: Former Types: Cigarettes Quit date: 2010 Years since quittin.7 Passive exposure: Past Smokeless tobacco: Never Vaping Use Vaping Use: Never used Substance Use Topics Alcohol use: Yes Alcohol/week: 2.5 standard drinks Types: 1 Cans of Beer (12oz) per week Comment: occasional beer Drug use: No FAMILY HISTORY Problem Relation Age of Onset Cancer Sister Rola Gordon APRN.CNP [place], [place] CC: Zahra Buitrago MD [address] [place] [address] [facility] [id number] David Caputo MD [address] [place] [phone] I spent a total of 30 minutes on the date of the service which included preparing to see the patient, [id number] patient care, completing clinical documentation, obtaining and/or reviewing separately obtained history, performing a medically appropriate examination, counseling and educating the pat ient/family/caregiver, ordering medications, tests, or procedures, independently interpreting results (not separately reported), and communicating results to the patient/family/caregiver. documented in this [facility]-2022 Miscellaneous Notes* [facility] - [facility]/13/2022 10:51 AM EDT 1st report of treatment-Non oncology regimen (Monoferric) Patient holds Medicare coverage and therefore no FA required. Electronically signed by Fer Pollack [facility] Dat at 03/13/2022 10:55 AM EDT documented in this encounterC[facility]09-02-2022 History of Present illness Narrative* TRACI Andrade - 02/28/2022 9:33 AM EDT Patient is listed on the First Time Treatment Report. Patient is scheduled to receive a non-oncology treatment. No psychosocial assessment is indicated. MARINO Andrade documented in this encounterC[facility]08-22-2022 Miscellaneous Notes* Telephone Encounter - Cassandra Hernandez RN - 02/17/2022 10:57 AM EDT Pt daughter called to verify the RX reglan had been sent to [facility]. HM sent escript 02/12. I called to verify the RX was rec'd by the pharmacy, and spoke to Too, who verifies they have it ready for the pt. Called Shiela back and she is aware it is ready for warehouse order picker. Cassandra Hernandez RN documented in this [facility]08-18-2022 Nurse Note* Katie Seay - 02/13/2022 3:23 PM EDT Patient Identification confirmed: yes. Injection given and documented on AUG per provider order. Katie Seay documented in this encounterC[facility]08-18-2022 History of Present illness Narrative* Zahra Buitrago MD - 02/13/2022 2:48 PM EDT Images from the original note were not included. NAME: Rocio Jackson CLINIC NO.: [id number] DATE OF SERVICE: [facility] 2021 Some elements in this clinic note that are critical to medical decision making have been carefully reviewed and included from a prior clinic note dated: December 05, 2021 Referring Provider: Vanessa Bejarano Additional Clinicians involved in Rocio Ventura's care: Dr. 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 Completed adjuvant chemotherapy in December 2017 with Xeloda and Gemzar. No evidence of recurrent disease on CT imaging from July 2019. VANNESA on review of his most recent outside scans last year.Will need fresh scans. Anemia, unspecified type He does have a history of iron deficiency anemia requiring IV iron in 2018. At this time he has macrocytic anemia. Today we discussed his positive KERRI and his inappropriately low/normal erythropoietin. I offered him rheumatology consult he wanted to wait for now. I also offered him regular Aranesp. He would prefer to monitor for now given his current hemoglobin level. We will continue to monitor his hemoglobin closely every 2 months for now. He was instructed to notify us immediately if he has any black or bloody stools. PLAN: 1. B12 shot today and every 4 weeks 2. RTC in 4 weeks shot and follow up on labs to determine additional need (iron etc) - See Rola / Leila please. 3. Labs in 3 weeks (1 week prior to return) 4. Will need repeat CT in 3-4 months for reticulonodular / inflammatory changes. 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 H/O iron deficiency anemia Treatment History: 1. Pancreatic duodenectomy 09/30/2017 2. Adjuvant chemotherapy with Gemzar and Xeloda (per Dr. Reyez) 11/13/17-01/22/18 3. IV iron given in April 2018 HPI: Updated Visit, February 13, 2022: Reviewed scans from 02/06/2022 which were negative for recurrence Breathing heavy but doesn't feel dyspneic Hgb decreased, may need iron. Comparison was from 2 years ago. 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 He then Transitioned care outside of this practice and is now transitioning back. I reviewed his outside records. Still has Diarrhea but he generally deals with it well. Hasn't been restaged.Otherwise feels well. Updated Visit, January 30, 2020: Rocio is 64 and was sent to me for follow-up with persisting fatigue. He is status post Whipple procedure in September 2017. His suspicion was that his anemia was causing his degree of fatigue but I believe he has an other cause. All need reports from his endoscopy and colonoscopy as well as reports from his rn observation. His PFTs are pending, and he was supposed to have CT scans prior to this visit. He will return after he has these done. He is accompanied by his sister Briana. 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 He completed adjuvant chemotherapy in December 2017 with Xeloda plus Gemzar. Today he is here with his sister Briana. He reports that he is fatigued but this is no different thanhis baseline. Since this is so incongruent with his degree of macrocytic anemia and he doesn't qualify for erythropoietin from a renal perspective, I strongly recommended that he needs a endoscopic evaluation in addition to a cardiopulmonary workup. If those are all negative and I would recommend abone marrow biopsy for further investigation. RADIOGRAPHIC DATA: Reviewed on December 12, 2019 2. 08/15/2019 CT chest abdomen and pelvis with IV contrast: 1. Several mildly prominent central mesenteric lymph nodes are again identified, stable from the prior examination of 12/21/2018. 2. Postoperative changes, compatible with prior Whipple's procedure. No CT evidence for recurrent mass. 1. There has been interval development of minimal patchy groundglass opacity, as well as a small consolidative opacity within the left lingula, likely infectious/inflammatory nature. 2. No suspicious pulmonary nodule is appreciated. No substantial intrathoracic adenopathy is identified. Evidence for priorgranulomatous disease. 1. 12/21/2018 CT CAP: Stable CT examination of the chest as above. Several mildly prominent central mesenteric lymph nodes are again identified, less conspicuous when compared to the prior study of 06/04/2018. Postoperative changes, compatible with prior Whipple's procedure. PATHOLOGIC PROFILE/MOLECULAR DATA: Reviewed on December 12, 2019 1. Pancreas and duodenum, pancreaticoduodenectomy (D) Invasive poorly differentiated adenocarcinomaof the ampulla of Vater (4.5 cm) that extends into the duodenum and pancreas. - Metastatic adenocarcinoma involving three of eleven lymph nodes (3/11). - Lymphovascular invasion and perineural invasion are seen. - Surgical resection margins are free of tumor. REVIEW OF SYSTEMS Per HPI and otherwise negative by full review of organ systems. ECOG PERFORMANCE STATUS: 1 PHYSICAL EXAMINATION: Vitals: BP 108/74 Pulse 62 Temp (Src) 97.8 (Temporal) Resp 16 Ht 5' 7.244 (1.71m) Wt 143lb 9.6 oz (65.1kg) SpO2 95% BMI 22.33 kg/(m^2). Body surface area is 1.76 meters squared. Exam limited to gross visualization where appropriate due to COVID-19. Gen.: This is an age-appropriate patient in no acute distress. Head: Appears atraumatic with no visible lesions. Eyes: Pupils equally round and reactive to light, extraocular muscles are intact. Neck: Supple. Mouth: Mucous membranes appeared to be moist. Respiratory: Appears to be respiring comfortably. Neurologic: Nonfocal to gross visualization. Alert and oriented 3. Psychiatric: No evidence of inappropriate anxiety or depression. Skin: Visible areas of skin without rash, lesions, wounds or petechiae. ALLERGIES: ALLERGIES No Known Allergies MEDICATIONS: metoclopramide HCl (REGLAN) 10 mg tablet Take 1 tablet by mouth three times daily with meals. thhffy-mtesofgi-ooikxkc (CREON 24) 24,000-76,000 -120,000 unit delayed release capsule Take 2 capsules by mouth three times daily with meals. Cholestyramine-Aspartame (CHOLESTYRAMINE LIGHT) 4 gram powder Take 4 g by mouth three times daily with meals. glipiZIDE (GLUCOTROL) 5 mg tablet Take 5 mg by mouth twice daily before meals. JARDIANCE 25 mg tablet ELIQUIS 2.5 mg tab tab(s) Take 2.5 mg by mouth twice daily. venlafaxine ER (EFFEXOR XR) 75 mg 24 hr capsule TAKE 1 CAPSULE BY MOUTH ONE TIME A DAY metoprolol succinate ER (TOPROL XL) 25 mg 24 hr tablet Take 25 mg by mouth once daily. ALPRAZolam (XANAX) 0.25 mg tablet Take 0.25 mg by mouth as needed. FLUoxetine HCl (PROZAC) 40 mg capsule Take 40 mg by mouth twice daily. acetaminophen (TYLENOL) 650 mg/20.3 mL soln Take 20.3 mL by mouth every 6 hours as needed. atorvastatin (LIPITOR) 40 mg tablet Take 40 mg by mouth daily at bedtime. nitroglycerin sublingual (NITROSTAT) 0.4 mg SL tablet Dissolve 0.4 mg under the tongue every 5 minutes as needed. LABORATORY VALUES: WBC (k/uL) Date Value 02/06/2022 4.66 RBC (m/uL) Date Value 02/06/2022 2.74 (L) Hemoglobin (g/dL) Date Value 02/06/2022 9.5 (L) Hematocrit (%) Date Value 02/06/2022 29.4 (L) MCV (fL) Date Value 02/06/2022 107.3 (H) MCH (pg) Date Value 02/06/2022 34.7 (H) MCHC (g/dL) Date Value 02/06/2022 32.3 RDW-CV (%) Date Value 02/06/2022 13.3 Platelet Count (k/uL) Date Value 02/06/2022 302 MPV (fL) Date Value 02/06/2022 9.2 Glucose (mg/dL) Date Value 02/06/2022 98 BUN (mg/dL) Date Value 02/06/2022 26 (H) Creatinine (mg/dL) Date Value 02/06/2022 0.71 (L) Sodium (mmol/L) Date Value 02/06/2022 137 Potassium (mmol/L) Date Value 02/06/2022 4.8 Chloride (mmol/L) Date Value 02/06/2022 110 (H) CO2 (mmol/L) Date Value 02/06/2022 19 (L) Protein, Total (g/dL) Date Value 02/06/2022 6.4 Albumin (g/dL) Date Value 02/06/2022 3.5 (L) Calcium, Total (mg/dL) Date Value 02/06/2022 8.8 Alkaline Phosphatase (U/L) Date Value 02/06/2022 166 (H) Bilirubin, Total (mg/dL) Date Value 02/06/2022 0.2 AST (U/L) Date Value 02/06/2022 30 ALT (U/L) Date Value 02/06/2022 38 DIAGNOSIS: (D50.9) Iron deficiency anemia, unspecified iron deficiency anemia type (primary encounter diagnosis) Plan: CBC + DIFF, COMP METABOLIC PANEL, IRON + TIBC, FERRITIN BLD, VITAMIN B12 BLOOD, FOLATE SERUM (C24.1) Cancer of ampulla of Vater (HCC) Plan: DISCONTINUED: cyanocobalamin 1,000 mcg injection (D75.89) Macrocytosis Plan: CBC + DIFF, COMP METABOLIC PANEL, IRON + TIBC, FERRITIN BLD, VITAMIN B12 BLOOD, FOLATE SERUM, DISCONTINUED: cyanocobalamin 1,000 mcg injection PAST MEDICAL HISTORY Diagnosis Date Anemia Anxiety Bleeding ulcer 11/15/2016 required 5 blood transfusions Coronary artery disease involving [place] coronary artery Diabetes mellitus (HCC) 2017 Duodenal cancer (HCC) Dyslipidemia Fatigue Glaucoma Hypertension Myocardial infarction (HCC) 05/15/2011 PTSD (post-traumatic stress disorder) PAST SURGICAL HISTORY Procedure Laterality Date ANGIOPLASTY HX 05/15/2011 2 stents s/p MD;[facility] CHOLECYSTECTOMY 08/11/2017 [facility] COLONOSCOPY PAST SURGICAL HISTORY OF Cardiac Stents x2 PAST SURGICAL HISTORY OF 09/2017 [place] PICC LINE INSERT/CONSULT 08/16/2017 Social History Tobacco Use Smoking status: Former Types: Cigarettes Quit date: 2010 Years since quittin.6 Passive exposure: Past Smokeless tobacco: Never Vaping Use Vaping Use: Never used Substance Use Topics Alcohol use: Yes Alcohol/week: 2.5 standard drinks Types: 1 Cans of Beer (12oz) per week Comment: occasional beer Drug use: No FAMILY HISTORY Problem Relation Age of Onset Cancer Sister I spent a total of 35 minutes on the date of the service which included preparing to see the patient, [id number] patient care, completing clinical documentation, obtaining and/or reviewing separately obtained history, performing a medically appropriate examination, counseling and educating the pat ient/family/caregiver and ordering medications, tests, or procedures. Zahra Buitrago MD, CPE [facility] [place], [place] CC: Zahra Buitrago MD [address] [place] [address] [place] [address] David Caputo MD [address] [place] [phone] documented in this encounterC[facility]08-17-2022 Miscellaneous Notes* Telephone Encounter - Rola Gordon APRN.CNP - 02/12/2022 9:56 AM EDT The following approved medication requests have been transmitted electronically. Requested Prescriptions Signed Prescriptions Disp Refills metoclopramide HCl (REGLAN) 10 mg tablet 90 tablet 1 Sig: Take 1 tablet by mouth three times daily with meals. Authorizing Provider: ROLA GORDON APRN.CNP * Telephone Encounter - Magalys Cruz RN - 02/11/2022 4:39 PM EDT Received call from pt's daughter requesting refill of Reglan to be sent to [facility] in [place]. CHRIS: Order pending. Please review and sign. Magalys Cruz RN documented in this encounterC[facility]08-15-2022 Miscellaneous Notes* Telephone Encounter - Rola Gordon APRN.CNP - 02/10/2022 3:56 PM EDT The following approved medication requests have been transmitted electronically. Requested Prescriptions Signed Prescriptions Disp Refills metoclopramide HCl (REGLAN) 10 mg tablet 90 tablet 1 Sig: Take 1 tablet by mouth three times daily with meals. Authorizing Provider: ROLA GORDON APRN.CNP * Telephone Encounter - Veronica Hall RN - 02/10/2022 10:58 AM EDT Pt's daughter calls stating pt needs a refill on his metoclopramide. Daughter thought pt was to be taking this TID with meals, however the bottle says daily. Please clarify how often you'd like pt to be taking this so a new script can be placed. Thanks Veronica Hall RN documented in this encounterC[facility]07-21-2022 Evaluation note* Encounter Date Diagnosis Assessment Notes Treatment Notes Treatment Clinical Notes Dec, Iron deficiency anemia (ICD-10 - D50.9) Dec, Diarrhea (ICD-10 - R19.7) STATES HAVING THIS FOR A COUPLE OF MONTHS AND HE WAS TAKING MEDICATION TO HELP THIS. PATIENT STATES HAVING THIS 5-6 TIMES A DAY BUT THE LAST 2 WEEKS IT HAS GONE BACK TO NORMAL. WE WILL ORDER SOME TESTING AT THIS TIME [facility] Other 06-09-2022 Nurse Note* Homa Powell Ma - 12/05/2021 3:09 PM EDT Patient unsure of any of his medications and was instructed to bring a list next time he comes. Homa Powell Ma documented in this encounterC[facility]06-09-2022 History of Present illness Narrative* Zahra Buitrago MD - 12/05/2021 3:00 PM EDT Images from the original note were not included. NAME: Rocio Jackson [facility] NO.: [id number] DATE OF SERVICE: December 05, 2021 Referring Provider: Vanessa Bejarano Additional Clinicians involved in Rocio Jackson's care: Dr. 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 Completed adjuvant chemotherapy in December 2017 with Xeloda and Gemzar. No evidence of recurrent disease on CT imaging from July 2019. VANNESA on review of his most recent outside scans last year.Will need fresh scans. Anemia, unspecified type He does have a history of iron deficiency anemia requiring IV iron in 2018. At this time he has macrocytic anemia. Today we discussed his positive KERRI and his inappropriately low/normal erythropoietin. I offered him rheumatology consult he wanted to wait for now. I also offered him regular Aranesp. He would prefer to monitor for now given his current hemoglobin level. We will continue to monitor his hemoglobin closely every 2 months for now. He was instructed to notify us immediately if he has any black or bloody stools. PLAN: 1. Scans and labs in 2 months 2. RTC 1 week after to review. 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 H/O iron deficiency anemia Treatment History: 1. Pancreatic duodenectomy 09/30/2017 2. Adjuvant chemotherapy with Gemzar and Xeloda (per Dr. Reyez) 11/13/17-01/22/18 3. IV iron given in April 2018 HPI: Updated Visit, December 05, 2021: Wanted to re-establish care since his DrDary Retired from practice after leaving this practice.he has had no evidence of progression or that of recurrence since I last saw and spoke with him 2 years ago.. He then Transitioned care outside of this practice and is now transitioning back. I reviewed his outside records. Still has Diarrhea but he generally deals with it well. Hasn't been restaged.Otherwise feels well. Updated Visit, January 30, 2020: Rocio is 64 and was sent to me for follow-up with persisting fatigue. He is status post Whipple procedure in September 2017. His suspicion was that his anemia was causing his degree of fatigue but I believe he has an other cause. All need reports from his endoscopy and colonoscopy as well as reports from his rn observation. His PFTs are pending, and he was supposed to have CT scans prior to this visit. He will return after he has these done. He is accompanied by his sister Briana. 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 He completed adjuvant chemotherapy in December 2017 with Xeloda plus Gemzar. Today he is here with his sister Briana. He reports that he is fatigued but this is no different thanhis baseline. Since this is so incongruent with his degree of macrocytic anemia and he doesn't qualify for erythropoietin from a renal perspective, I strongly recommended that he needs a endoscopic evaluation in addition to a cardiopulmonary workup. If those are all negative and I would recommend abone marrow biopsy for further investigation. RADIOGRAPHIC DATA: Reviewed on December 12, 2019 2. 08/15/2019 CT chest abdomen and pelvis with IV contrast: 1. Several mildly prominent central mesenteric lymph nodes are again identified, stable from the prior examination of 12/21/2018. 2. Postoperative changes, compatible with prior Whipple's procedure. No CT evidence for recurrent mass. 1. There has been interval development of minimal patchy groundglass opacity, as well as a small consolidative opacity within the left lingula, likely infectious/inflammatory nature. 2. No suspicious pulmonary nodule is appreciated. No substantial intrathoracic adenopathy is identified. Evidence for prior granulomatous disease. 1. 12/21/2018 CT CAP: Stable CT examination of the chest as above. Several mildly prominent central mesenteric lymph nodes are again identified, less conspicuous when compared to the prior study of 06/04/2018. Postoperative changes, compatible with prior Whipple's procedure. PATHOLOGIC PROFILE/MOLECULAR DATA: Reviewed on December 12, 2019 1. Pancreas and duodenum, pancreaticoduodenectomy (D) Invasive poorly differentiated adenocarcinomaof the ampulla of Vater (4.5 cm) that extends into the duodenum and pancreas. - Metastatic adenocarcinoma involving three of eleven lymph nodes (3/11). - Lymphovascular invasion and perineural invasion are seen. - Surgical resection margins are free of tumor. REVIEW OF SYSTEMS Per HPI and otherwise negative by full review of organ systems. ECOG PERFORMANCE STATUS: 1 PHYSICAL EXAMINATION: Vitals: BP 123/85 Pulse 80 Temp (Src) 97.4 (Temporal) Resp 16 Ht 5' 7.244 (1.71m) Wt 162lb (73.5kg) SpO2 97% BMI 25.19 kg/(m^2). Body surface area is 1.87 meters squared. Exam limited to gross visualization where appropriate due to COVID-19. Gen.: This is an age-appropriate patient in no acute distress. Head: Appears atraumatic with no visible lesions. Eyes: Pupils equally round and reactive to light, extraocular muscles are intact. Neck: Supple. Mouth: Mucous membranes appeared to be moist. Respiratory: Appears to be respiring comfortably. Neurologic: Nonfocal to gross visualization. Alert and oriented 3. Psychiatric: No evidence of inappropriate anxiety or depression. Skin: Visible areas of skin without rash, lesions, wounds or petechiae. ALLERGIES: ALLERGIES No Known Allergies MEDICATIONS: metoclopramide HCl (REGLAN) 10 mg tablet Take 10 mg by mouth once daily. Cholestyramine-Aspartame (CHOLESTYRAMINE LIGHT) 4 gram powder Take 4 g by mouth three times daily with meals. glipiZIDE (GLUCOTROL) 5 mg tablet Take 5 mg by mouth twice daily before meals. hrgdvz-ojrnqevn-mdnqiwn (CREON 24) 24,000-76,000 -120,000 unit cpDR Take 2 capsules by mouth three times daily with meals. JARDIANCE 25 mg tablet iv contrast (will be provided with radiology test) CT Chest ABD/PEL-Inject, intravenously, once for1 dose.No IV access, insert saline lock prior to the beginning of sedation, infusion, injection of imaging exam. Discontinue saline lock post exam. If Pt. has a central line or IVAD, may access for administration according to line specific nursing protocol. Once exam is complete flush line and de-access according to line specific nursing protocol in the CT contrast administration guidelines link. enteric contrast (will be provided with radiology test) For CT CHESTABD/PEL W IVCON Routine order Administer, As Directed One Time Only, via Oral, Rectal, both Oral and Rectal, Enteric Tube, Stoma orIndwelling Catheter, Enteric Contrast as designated per enteric contrast guidelines ELIQUIS 2.5 mg tab tab(s) Take 2.5 mg by mouth twice daily. venlafaxine ER (EFFEXOR XR) 75 mg 24 hr capsule TAKE 1 CAPSULE BY MOUTH ONE TIME A DAY metoprolol succinate ER (TOPROL XL) 25 mg 24 hr tablet Take 25 mg by mouth once daily. ALPRAZolam (XANAX) 0.25 mg tablet Take 0.25 mg by mouth as needed. FLUoxetine HCl (PROZAC) 40 mg capsule Take 40 mg by mouth twice daily. metFORMIN (GLUCOPHAGE) 1,000 mg tablet Take 1,000 mg by mouth twice daily with meals. sAXagliptin (ONGLYZA) 5 mg tab Take 5 mg by mouth once daily. acetaminophen (TYLENOL) 650 mg/20.3 mL soln Take 20.3 mL by mouth every 6 hours as needed. scopolamine (TRANSDERM-SCOP) 1 mg over 3 days Apply 1 Patch as directed every 72 hours as needed. atorvastatin (LIPITOR) 40 mg tablet Take 40 mg by mouth daily at bedtime. nitroglycerin sublingual (NITROSTAT) 0.4 mg SL tablet Dissolve 0.4 mg under the tongue every 5 minutes as needed. LABORATORY VALUES: WBC (k/uL) Date Value 01/30/2020 5.46 RBC (m/uL) Date Value 01/30/2020 3.41 (L) Hemoglobin (g/dL) Date Value 01/30/2020 11.8 (L) Hematocrit (%) Date Value 01/30/2020 36.0 (L) MCV (fL) Date Value 01/30/2020 105.6 (H) MCH (pG) Date Value 01/30/2020 34.6 (H) MCHC (g/dL) Date Value 01/30/2020 32.8 RDW-CV (%) Date Value 01/30/2020 15.9 (H) Platelet Count (k/uL) Date Value 01/30/2020 349 MPV (fL) Date Value 01/30/2020 9.2 Glucose (mg/dL) Date Value 07/04/2019 178 (H) BUN (mg/dL) Date Value 07/04/2019 23 Creatinine (mg/dL) Date Value 02/20/2020 0.77 Sodium (mmol/L) Date Value 07/04/2019 136 Potassium (mmol/L) Date Value 07/04/2019 4.7 Chloride (mmol/L) Date Value 07/04/2019 108 (H) CO2 (mmol/L) Date Value 07/04/2019 19 (L) Protein, Total (g/dL) Date Value 08/12/2019 7.1 Albumin (g/dL) Date Value 08/12/2019 4.2 Calcium (mg/dL) Date Value 07/04/2019 9.4 Alkaline Phosphatase (U/L) Date Value 08/12/2019 88 Bilirubin, Total (mg/dL) Date Value 08/12/2019 0.3 AST (U/L) Date Value 08/12/2019 20 ALT (U/L) Date Value 08/12/2019 36 DIAGNOSIS: (C24.1) Cancer of ampulla of Vater (HCC) (primary encounter diagnosis) Plan: CT ABD/PEL W IVCON, CT CHEST W IVCON, iv contrast (will be provided with radiology test), enteric contrast (will be provided with radiology test), CEA BLD, CBC + DIFF, COMP METABOLIC PANEL, CA 19-9 BLD (K31.5) Duodenal obstruction Plan: bnvvfv-ntqcjjyf-chabzfe (CREON 24) 24,000-76,000 -120,000 unit delayed release capsule (D50.9) Iron deficiency anemia, unspecified iron deficiency anemia type Plan: hihmxg-tfjeztwf-gfvpxkg (CREON 24) 24,000-76,000 -120,000 unit delayed release capsule, CT ABD/PEL W IVCON, CT CHEST W IVCON, iv contrast (will be provided with radiology test), enteric contrast (will be provided with radiology test), CEA BLD, CBC + DIFF, COMP METABOLIC PANEL, CA 19-9 BLD (C80.1) Adenocarcinoma (HCC) Plan: CT ABD/PEL W IVCON, CT CHEST W IVCON, iv contrast (will be provided with radiology test), enteric contrast (will be provided with radiology test), CEA BLD, CBC + DIFF, COMP METABOLIC PANEL, CA 19-9 BLD (C80.1) Primary malignant neoplasm (HCC) (C25.1) Malignant neoplasm of body of pancreas (HCC) Plan: CEA BLD PAST MEDICAL HISTORY Diagnosis Date Anemia Anxiety Bleeding ulcer 11/15/2016 required 5 blood transfusions Coronary artery disease involving [place] coronary artery Diabetes mellitus (HCC) 2017 Duodenal cancer (HCC) Dyslipidemia Fatigue Glaucoma Hypertension Myocardial infarction (HCC) 05/15/2011 PTSD (post-traumatic stress disorder) PAST SURGICAL HISTORY Procedure Laterality Date ANGIOPLASTY HX 05/15/2011 2 stents s/p MD;[facility] CHOLECYSTECTOMY 08/11/2017 [facility] COLONOSCOPY PAST SURGICAL HISTORY OF Cardiac Stents x2 PAST SURGICAL HISTORY OF 09/2017 Whipple PICC LINE INSERT/CONSULT 08/16/2017 Social History Tobacco Use Smoking status: Former Smoker Types: Cigarettes Quit date: 2010 Years since quittin.4 Smokeless tobacco: Never Used Vaping Use Vaping Use: Never used Substance Use Topics Alcohol use: Yes Alcohol/week: 2.5 standard drinks Types: 1 Cans of Beer (12oz) per week Comment: occasional beer Drug use: No FAMILY HISTORY Problem Relation Age of Onset Cancer Sister I spent a total of 35 minutes on the date of the service which included preparing to see the patient, eeny-qn-avtb patient care, completing clinical documentation, obtaining and/or reviewing separately obtained history, performing a medically appropriate examination, counseling and educating the pat ient/family/caregiver and ordering medications, tests, or procedures. Zahra Buitrago MD, CPE [facility] [place], [place] CC: Zahra Buitrago MD [address] [place] [address] [place] [address] David Caputo MD [address] [place] [phone] [facility] Progress note Author Monico Reyez [facility] June 13, 2021 2:01pm Note Date/Time June 13, 2021 2:00pm [facility] at [facility] [address] [place] [id number] Hem/Onc Follow Up Note - OP Signed Patient: Rocio Jackson MR#: [id number] : 1955 Acct:[id number] Age/Sex: 66 / M Type: REG RCR Copies to: David Caputo MD SELF,REFERRAL ~ Subjective Date/Time of Service: Date of Service: 06/13/2021 Time of Service: 13:59 Chief Complaint: Patient is here for a 6 month follow up for cancer of ampula ofvater. No concerns voiced at this time. HPI: Rocio presents in follow-up today. He has no acute complaints. He had a carcinoma of the ampulla of Vater resected the [facility] number of years ago and then had adjuvant chemotherapy while I was at [facility]. Rocio is a patient well-known to me. 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 He has been followed since that time. Labs recently drawn at [facility] and are overall negative except for mild macrocytosis. He appears to be doing overall very well Subjective/ROS - Narrative: No new complaints. [facility] - Medical History Medical History: Medical History (Last Updated 02/28/20 @ 11:42 by Arnulfo Hernandez, KEVIN) Anxiety Diabetes HTN (hypertension) Hyperlipemia Iron deficiency Myocardial infarct Pancreas cancer Stomach ulcer - Surgical History Surgical History: Surgical History (Last Reviewed 02/28/20 @ 11:38 by Arnulfo Hernandez, KEVIN) History of cardiac catheterization History of cholecystectomy History of heart artery stent - Family History Family History: Family History (Last Reviewed 02/28/20 @ 11:37 by Arnulfo Hernandez RN) Mother Heart trouble HTN (hypertension) Diabetes Father Diabetes Sister Diabetes Sister Cancer - Social History Smoking Status: Former smoker Substance Use Type: None Home Medications & Allergies Allergies No Known Allergies Allergy (Verified 06/05/20 13:01) Home Medications metformin 1,000 mg tablet 1,000 mg PO BID 08/07/17 [History Confirmed 12/13/20] alprazolam 0.25 mg tablet (Xanax) 0.25 mg PO BID 03/04/19 [History Confirmed 12/13/20] apixaban 2.5 mg tablet (Eliquis) 2.5 mg PO BID 03/04/19 [History Confirmed 12/13/20] atorvastatin 40 mg tablet (Lipitor) 40 mg PO DAILY 03/04/19 [History Confirmed 12/13/20] fluoxetine 40 mg capsule 20 mg PO DAILY 03/04/19 [History Confirmed 12/13/20] geaicx-dzjjccxc-jmbeeor 24,000-76,000-120,000 unit capsule,delayed rel (Creon) 1cap PO TID 03/04/19 [History Confirmed 12/13/20] metoprolol succinate 25 mg capsule sprinkle, ext. release 24 hr 25 mg PO DAILY 03/04/19 [History Confirmed 12/13/20] empagliflozin 25 mg tablet (Jardiance) 25 mg PO DAILY 02/28/20 [History Confirmed 12/13/20] pxsawe-hmoxcfgh-qjgttss 24,000-76,000-120,000 unit capsule,delayed rel (Creon) 1cap PO TID #90 cap 01/16/21 [Rx] metoclopramide HCl 10 mg tablet (Reglan) 10 mg PO QAC #90 tab 04/18/21 [Rx] Objective - Height/Weight Height/Weight: Height 5 ft 8 in Weight 71.123 kg - Vital Signs Vital Signs: 06/13/21 13:30 Temperature 97.9 F Pulse Rate [Right Brachial] 69 Respiratory Rate 20 Blood Pressure [Right Arm] 93/50 L 02 Sat by Pulse Oximetry 99 - Distress Screening Distress Screen Results: RN Distress Screening Start: 02/28/20 11:12 Freq: Status: Active Protocol: Document 02/28/20 11:31 AA (Rec: 02/28/20 11:32 AA [id number]) Distress Screening Distress Score: 3 Comments fatigue Distress Screening Total 3 Physical Exam Narrative: The patient is alert and oriented x3. Eyes are anicteric. Head is atraumatic normocephalic. Cranial nerves II through XII are intact. Neck shows no thyromegaly or JVD. Cardiac exam is negative. Lungs audibly with good air exchange. Musculoskeletal exam is negative. Psychiatric exam shows a normal affect. Neurological exam is grossly intact. 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 I will recommend we restage him in 1 year. The patient is doing very well overall with no symptoms or signs of disease relapse. - Time with Patient Coordination of Care & Counseling Time: Greater than 50% of time spent with patient was for coordination of care (as documented) and fpnr-bc-hddo counseling of patient and/or family. Dictated By: Monico Reyez MD DD/ [id number] Signed By: <Electronically signed by MD Monico Reyez> 06/13/21 1401 [facility] [place] Work Phone: 1(879) 661-841406-17-2021 Progress note Author Monico Reyez [facility] December 13, 2020 3:06pm Note Date/Time December 13, 2020 3:05 pm [facility] [place] [address] Hem/Onc Follow Up Note - OP Signed Patient: Rocio Jackson MR#: [id number] : 1955 Acct:[id number] Age/Sex: 65 / M Type: REG RCR Copies to: David Caputo MD SELF,REFERRAL ~ Subjective Date/Time of Service: Date of Service: 12/13/2020 Time of Service: 15:02 Chief Complaint: Patient is here for a 6 month follow up with outside labs and CT for review. No concerns voiced at this time. HPI: Rocio presents in follow-up. His anemia has normalized. His transaminase has normalized as well. CT scan from November 2020 shows no evidence of relapse. The patient is doing very well today and is accompanied by his son. He has a daughter as well. They are both very happy with how their father is doing. He has a past history of a cancer of the ampulla of Vater having received adjuvant capecitabine and gemcitabine. [facility] - Medical History Medical History: Medical History (Last Updated 02/28/20 @ 11:42 by Arnulfo Hernandez RN) Anxiety Diabetes HTN (hypertension) Hyperlipemia Iron deficiency Myocardial infarct Pancreas cancer Stomach ulcer - Surgical History Surgical History: Surgical History (Last Reviewed 02/28/20 @ 11:38 by Arnulfo Hernandez, RN) History of cardiac catheterization History of cholecystectomy History of heart artery stent - Family History Family History: Family History (Last Reviewed 02/28/20 @ 11:37 by Arnulfo Hernandez RN) Mother Heart trouble HTN (hypertension) Diabetes Father Diabetes Sister Diabetes Sister Cancer - Social History Smoking Status: Former smoker Substance Use Type: None Home Medications & Allergies Allergies No Known Allergies Allergy (Verified 06/05/20 13:01) Home Medications metformin 1,000 mg PO BID 08/07/17 [History Confirmed 12/13/20] Creon 1 cap PO TID 03/04/19 [History Confirmed 12/13/20] Eliquis 2.5 mg PO BID 03/04/19 [History Confirmed 12/13/20] alprazolam [Xanax] 0.25 mg PO BID 03/04/19 [History Confirmed 12/13/20] atorvastatin [Lipitor] 40 mg PO DAILY 03/04/19 [History Confirmed 12/13/20] fluoxetine 20 mg PO DAILY 03/04/19 [History Confirmed 12/13/20] metoclopramide HCl [Reglan] 10 mg PO QACHS 03/04/19 [History Confirmed 12/13/20] metoprolol succinate 25 mg PO DAILY 03/04/19 [History Confirmed 12/13/20] empagliflozin [Jardiance] 25 mg PO DAILY 02/28/20 [History Confirmed 12/13/20] Objective - Height/Weight Height/Weight: Height 5 ft 8 in Weight 67.54 kg - Vital Signs Vital Signs: 12/13/20 14:38 Temperature 98.1 F Pulse Rate [Right Brachial] 65 Respiratory Rate 18 Blood Pressure [Right Arm] 105/66 02 Sat by Pulse Oximetry 98 - Emotional Needs Assessment Emotional Needs Assessment: Emotional Needs Identified? No Physical Exam Narrative: The patient is alert and oriented x3. Eyes are anicteric. Head is atraumatic normocephalic. Cranial nerves II through XII are intact. Neck shows no thyromegaly or JVD. Cardiac exam is negative. Lungs audibly with good air exchange. Musculoskeletal exam is negative. Psychiatric exam shows a normal affect. Neurological exam is grossly intact. 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 I will recommend we restage him in 1 year. The patient is doing very well overall with no symptoms or signs of disease relapse. CT scan is negative. - Time with Patient Coordination of Care & Counseling Time: Greater than 50% of time spent with patient was for coordination of care (as documented) and yejc-dm-njrl counseling of patient and/or family. Dictated By: Monico Reyez MD DD/ 1502 Signed By: <Electronically signed by MD Monico Reyez> 12/13/20 1506 [facility] [place] Work Phone: 1([phone]) 444-506412-08-2020 Progress note Author Monico Reyez [facility] June 05, 2020 1:30pm Note Date/Time June 05, 2020 1 :18pm [facility] [place] [address] Hem/Onc Follow Up Note - OP Signed Patient: Rocio Jackson MR#: [id number] : 1955 Acct:[id number] Age/Sex: 64 / M Type: REG RCR Copies to: David Caputo MD SELF,REFERRAL ~ Subjective Date/Time of Service: Date of Service: 06/05/2020 Time of Service: 13:12 Chief Complaint: patient is here today for a 3 month follow up visit for cancer of ampula of vator. He is here today to review labs. He states he feels tired most of the time. HPI: Rocio presents in follow-up. His liver function tests have normalized. His CBC is stable. He does have a history of diabetes mellitus and his sugars a bit high noted on labs. He looks good today. He has no new complaints. He had his last CT scan in January 2020. He has a past history of a cancer of the ampulla of Vater having received adjuvant capecitabine and gemcitabine. [facility] - Medical History Medical History: Medical History (Last Updated 02/28/20 @ 11:42 by Arnulfo Hernandez RN) Anxiety Diabetes HTN (hypertension) Hyperlipemia Iron deficiency Myocardial infarct Pancreas cancer Stomach ulcer - Surgical History Surgical History: Surgical History (Last Reviewed 02/28/20 @ 11:38 by Arnulfo Hernandez, RN) History of cardiac catheterization History of cholecystectomy History of heart artery stent - Family History Family History: Family History (Last Reviewed 02/28/20 @ 11:37 by Arnulfo Hernandez RN) Mother Heart trouble HTN (hypertension) Diabetes Father Diabetes Sister Diabetes Sister Cancer - Social History Smoking Status: Former smoker Substance Use Type: None Home Medications & Allergies Allergies No Known Allergies Allergy (Verified 06/05/20 13:01) Home Medications metformin 1,000 mg PO BID 08/07/17 [History Confirmed 06/05/20] Creon 1 cap PO TID 03/04/19 [History Confirmed 06/05/20] Eliquis 2.5 mg PO BID 03/04/19 [History Confirmed 06/05/20] alprazolam [Xanax] 0.25 mg PO BID 03/04/19 [History Confirmed 06/05/20] atorvastatin [Lipitor] 40 mg PO DAILY 03/04/19 [History Confirmed 06/05/20] fluoxetine 20 mg PO DAILY 03/04/19 [History Confirmed 06/05/20] metoclopramide HCl [Reglan] 10 mg PO QACHS 03/04/19 [History Confirmed 06/05/20] metoprolol succinate 25 mg PO DAILY 03/04/19 [History Confirmed 06/05/20] empagliflozin [Jardiance] 25 mg PO DAILY 02/28/20 [History Confirmed 06/05/20] Objective - Height/Weight Height/Weight: Height 5 ft 8 in Weight 69.853 kg - Vital Signs Vital Signs: 06/05/20 13:02 Temperature 97 F L Pulse Rate [Right Brachial] 64 Respiratory Rate 20 Blood Pressure [Right Arm] 105/70 02 Sat by Pulse Oximetry 97 - Emotional Needs Assessment Emotional Needs Assessment: Emotional Needs Identified? No Distress Screening Total 0 Physical Exam Narrative: The patient is alert and oriented x3. Eyes are anicteric. Head is atraumatic normocephalic. Cranial nerves II through XII are intact. Neck shows no thyromegaly or JVD. Cardiac exam is negative. Lungs audibly with good air exchange. Musculoskeletal exam is negative. Psychiatric exam shows a normal affect. Neurological exam is grossly intact. - ECOG Performance Status ECOG Score: 1 Results - Labs Labs: Diagram of Most Recent CBC and CMP 06/05/20 12:05 06/05/20 12:05 Labs - Last 7 Days 06/05/20 12:05: PHA Creatinine Clear 69.31, Sodium 132 L, Potassium 4.6, Chloride 101, Carbon Dioxide 16.7 L, BUN 34 H, Creatinine 1.03, Est GFR (AfricanAmer) > 60, Est GFR (Non-Af Amer) > 60, Glucose 398 H, Calcium 9.4, Total Bilirubin 0.4, AST 27, ALT 37, Alkaline Phosphatase 83, Total Protein 7.3, Albumin 3.9, Globulin 3.4, Albumin/Globulin Ratio 1.1 06/05/20 12:05: WBC 5.0, Corrected WBC 5.0, RBC 3.47 L, Hgb 11.7 L, Hct 36.1 L, MCV 104.1 H, MCH 33.8, MCHC 32.4 L, RDW 13.6, Plt Count 284, MPV 8.4, Neut % (Auto) 57.8, Lymph % (Auto) 30.5, [place] % (Auto) 5.8, Eos % (Auto) 5.1, Baso % (Auto) 0.8, Neut # (Auto) 2.9, Lymph # (Auto) 1.5, [place] # (Auto) 0.3, Eos # (Auto) 0.3, Baso # (Auto) 0.0, Nucleated RBC % (auto) 0.1 Assessment and Plan (1) Cancer of ampulla of Vater At this time we will plan on restaging in January 2021. The patient has no symptoms or signs of recurrence. Overall I believe he is doing quite well. (2) Elevated liver enzymes Resolved. I do not know the etiology of this. We will recommend continued observation. - Time with Patient Coordination of Care & Counseling Time: Greater than 50% of time spent with patient was for coordination of care (as documented) and ltxy-si-ltuc counseling of patient and/or family. Dictated By: Monico Reyez MD DD/ [id number] Signed By: <Electronically signed by MD Monico Reyez> 06/05/20 1330 [facility] [place] Work Phone: [phone] Progress note Author Monico Reyez [facility] March 06, 2020 1:51pm Note Date/Time March 06, 2020 1:50pm [facility] [place] [address] Hem/Onc Follow Up Note - OP Signed Patient: Rocio Jackson MR#: [id number] : 1955 Acct:[id number] Age/Sex: 64 / M Type: REG RCR Copies to: David Caputo MD SELF,REFERRAL ~ Subjective Date/Time of Service: Date of Service: 03/06/2020 Time of Service: 13:49 Chief Complaint: Patient is here for one week follow up for review of lab results. Patient continues with fatigue. HPI: Rocio presents in follow-up. His work-up was negative. He does have a mild transaminitis consistent with hepatitis. His MCV is 107.5. The hepatitis couldbe an explanation for this. He is just mildly anemic with a hemoglobin 11.1. His TSH, B12 and folate were all normal. All in all, I really did not find anything. His CT scans on February 20 were again negative for recurrence. At this time he has no evidence of recurrence. My concern for him however is his continued weight loss and a mild hepatitis and macrocytosis. Whether there is acomponent of alcohol, I cannot say. Rocio is a patient well-known to me. 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 He has been followed since that time. His latest CT scans at [facility] are negative. His biggestcomplaint today is weakness and fatigue. He does appear very pale overall we will check some basic blood work today and I will see him back in follow-up. [facility] - Medical History Medical History: Medical History (Last Updated 02/28/20 @ 11:42 by Arnulfo Hernandez RN) Anxiety Diabetes HTN (hypertension) Hyperlipemia Iron deficiency Myocardial infarct Pancreas cancer Stomach ulcer - Surgical History Surgical History: Surgical History (Last Reviewed 02/28/20 @ 11:38 by Arnulfo Hernandez RN) History of cardiac catheterization History of cholecystectomy History of heart artery stent - Family History Family History: Family History (Last Reviewed 02/28/20 @ 11:37 by Arnulfo Hernandez RN) Mother Heart trouble HTN (hypertension) Diabetes Father Diabetes Sister Diabetes Sister Cancer - Social History Smoking Status: Former smoker Substance Use Type: None Home Medications & Allergies Allergies No Known Allergies Allergy (Verified 01/26/20 08:27) Home Medications metformin 1,000 mg PO BID 08/07/17 [History Confirmed 03/06/20] Creon 1 cap PO TID 03/04/19 [History Confirmed 03/06/20] Eliquis 2.5 mg PO BID 03/04/19 [History Confirmed 03/06/20] alprazolam [Xanax] 0.25 mg PO BID 03/04/19 [History Confirmed 03/06/20] atorvastatin [Lipitor] 40 mg PO DAILY 03/04/19 [History Confirmed 03/06/20] fluoxetine 20 mg PO DAILY 03/04/19 [History Confirmed 03/06/20] metoclopramide HCl [Reglan] 10 mg PO QACHS 03/04/19 [History Confirmed 03/06/20] metoprolol succinate 25 mg PO DAILY 03/04/19 [History Confirmed 03/06/20] empagliflozin [Jardiance] 25 mg PO DAILY 02/28/20 [History Confirmed 03/06/20] Objective - Height/Weight Height/Weight: Height 5 ft 8 in Weight 65.9 kg - Vital Signs Vital Signs: 03/06/20 13:34 Temperature 97.2 F L Pulse Rate [Right Brachial] 78 Respiratory Rate 20 Blood Pressure [Right Arm] 118/78 02 Sat by Pulse Oximetry 97 - Emotional Needs Assessment Emotional Needs Assessment: Emotional Needs Identified? No Distress Screening Total 0 Support System Spouse Physical Exam Narrative: Patient is pale. HEENT exam is negative. Lungs are audibly good air exchange neurological exam grossly intact psychiatric exam normal affect. Results - Labs Labs: Diagram of Most Recent CBC and CMP 02/28/20 11:32 02/28/20 11:32 Assessment and Plan (1) Cancer of ampulla of Vater No evidence of disease. I will see him in 3 months for clinical follow-up. He does have a mild transaminitis and a mild macrocytosis. Could be medication related, alcohol or other. I will recommend observation. His latest CT scans did not show any evidence of recurrence. - Time with Patient Coordination of Care & Counseling Time: Greater than 50% of time spent with patient was for coordination of care (as documented) and [id number] counseling of patient and/or family. Dictated By: Monico Reyez MD DD/ 1349 Signed By: <Electronically signed by MD Monico Reyez> 03/06/20 0506 [facility] Work Phone: [phone]) 845-201009-01-2020 Progress note Author Monico Reyez [facility] February 28, 2020 2:12pm Note Date/Time February 28, 2020 2:10pm [facility] [place] [address] Hem/Onc Follow Up Note - OP Signed Patient: Rocio Jackson MR#: [id number] : 1955 Acct:[id number] Age/Sex: 64 / M Type: REG RCR Copies to: David Caputo MD SELF,REFERRAL ~ Subjective Date/Time of Service: Date of Service: 02/28/2020 Time of Service: 14:09 Chief Complaint: Patient is here for continued surveilance former patient of Dr Reyez for pancreas cancer. Patient has recent outside scans for review. Patient complains of fatigue. HPI: Rocio is a patient well-known to me. 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 He has been followed since that time. His latest CT scans at [facility] are negative. His biggestcomplaint today is weakness and fatigue. He does appear very pale overall we will check some basic blood work today and I will see him back in follow-up. [facility] - Medical History Medical History: Medical History (Last Updated 02/28/20 @ 11:42 by Arnulfo Hernandez RN) Anxiety Diabetes HTN (hypertension) Hyperlipemia Iron deficiency Myocardial infarct Pancreas cancer Stomach ulcer - Surgical History Surgical History: Surgical History (Last Reviewed 02/28/20 @ 11:38 by Arnulfo Hernandez RN) History of cardiac catheterization History of cholecystectomy History of heart artery stent - Family History Family History: Family History (Last Reviewed 02/28/20 @ 11:37 by Arnulfo Hernandez, RN) Mother Heart trouble HTN (hypertension) Diabetes Father Diabetes Sister Diabetes Sister Cancer - Social History Smoking Status: Former smoker Substance Use Type: None Home Medications & Allergies Allergies No Known Allergies Allergy (Verified 01/26/20 08:27) Home Medications metformin 1,000 mg PO BID 08/07/17 [History Confirmed 02/28/20] Creon 1 cap PO TID 03/04/19 [History Confirmed 02/28/20] Eliquis 2.5 mg PO BID 03/04/19 [History Confirmed 02/28/20] alprazolam [Xanax] 0.25 mg PO BID 03/04/19 [History Confirmed 02/28/20] atorvastatin [Lipitor] 40 mg PO DAILY 03/04/19 [History Confirmed 02/28/20] fluoxetine 20 mg PO DAILY 03/04/19 [History Confirmed 02/28/20] metoclopramide HCl [Reglan] 10 mg PO QACHS 03/04/19 [History Confirmed 02/28/20] metoprolol succinate 25 mg PO DAILY 03/04/19 [History Confirmed 02/28/20] empagliflozin [Jardiance] 25 mg PO DAILY 02/28/20 [History Confirmed 02/28/20] Objective - Height/Weight Height/Weight: Height 5 ft 8 in Weight 66.5 kg - Vital Signs Vital Signs: 02/28/20 11:16 Temperature 97.3 F L Pulse Rate [Right Brachial] 76 Respiratory Rate 20 Blood Pressure [Right Arm] 116/76 02 Sat by Pulse Oximetry 98 - Emotional Needs Assessment Emotional Needs Assessment: Emotional Needs Identified? Yes Distress Screening Total 3 Support System Sibling(s) Expressed/Other Feelings Fatigue Comment Physical Exam Narrative: Patient is pale. HEENT exam is negative. Lungs are audibly good air exchange neurological exam grossly intact psychiatric exam normal affect. Results - Labs Labs: Diagram of Most Recent CBC and CMP 02/28/20 11:32 02/28/20 11:32 Labs - Last 7 Days 02/28/20 11:32: PHA Creatinine Clear 86.80, Sodium 135 L, Potassium 4.5, Chloride 111, Carbon Dioxide 14.9 L, BUN 28 H, Creatinine 0.83, Est GFR (AfricanAmer) > 60, Est GFR (Non-Af Amer) > 60, Glucose 152 H, Calcium 8.3, Iron 57, TIBC 211 L, Iron Saturation 27.0, Transferrin 151 L, Ferritin 101.1, Total Bilirubin 0.5, AST 67 H, ALT 94 H, Alkaline Phosphatase 132 H, Total Protein 5.7L, Albumin 2.8 L, Globulin 2.9, Albumin/Globulin Ratio 1.0, Vitamin B12 490, Folate 6.3, TSH 3rd Generation 5.07 02/28/20 11:32: WBC 5.5, Corrected WBC 5.5, RBC 3.13 L, Hgb 11.1 L, Hct 33.7 L, MCV 107.5 H, MCH 35.5 H, MCHC 33.0, RDW 14.6, Plt Count 350, MPV 8.1, Neut % (Auto) 55.0, Lymph % (Auto) 32.7, [place] % (Auto) 9.3, Eos % (Auto) 2.4, Baso % (Auto) 0.6, Neut # (Auto) 3.0, Lymph # (Auto) 1.8, [place] # (Auto) 0.5, Eos # (Auto) 0.1, Baso # (Auto) 0.0, Nucleated RBC % (auto) 0.1, Absolute Retic 0.043,Percent Retic 1.4 Assessment and Plan (1) Anemia The patient has had a history of iron deficiency anemia. We will check some basic blood work and I will see him back in 1 week (2) Cancer of ampulla of Vater Latest CT scans are negative for recurrence. - Time with Patient Coordination of Care & Counseling Time: Greater than 50% of time spent with patient was for coordination of care (as documented) and [id number] counseling of patient and/or family. Dictated By: Monico Reyez MD DD/ 1409 Signed By: <Electronically signed by MD Monico Reyez> 02/28/20 1412 [facility] Work Phone: Evaluation note* Diagnosis 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 Duodenal obstruction Other obstruction of duodenum Iron deficiency anemia, unspecified iron deficiency anemia type Adenocarcinoma (HCC) Other malignant neoplasm without specification of site Primary malignant neoplasm (HCC) Other malignant neoplasm without specification of site Malignant neoplasm of body of pancreas (HCC) Malignant neoplasm of body of [facility] Macrocytosis- Primary Other specified diseases of blood and blood-forming organs Abnormal weight loss Loss of weight Adenocarcinoma (HCC) Other malignant neoplasm without specification of site 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 [facility] Diagnosis Iron deficiency anemia, unspecified iron deficiency anemia type- Primary 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 Macrocytosis Other specified diseases of blood and blood-forming organs [facility] 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 Iron deficiency anemia, unspecified iron deficiency anemia type Anemia due to vitamin B12 deficiency, unspecified B12 deficiency type Anemia due to folic acid deficiency, unspecified deficiency type [facility] Diagnosis Macrocytosis- Primary Other specified diseases of blood and blood-forming organs Abnormal weight loss Loss of weight Adenocarcinoma (HCC) Other malignant neoplasm without specification of site 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 Iron deficiency anemia, unspecified iron deficiency anemia type [facility] Diagnosis Duodenal obstruction Other obstruction of duodenum Iron deficiency anemia, unspecified iron deficiency anemia type [facility] Diagnosis Macrocytosis- Primary Other specified diseases of blood and blood-forming organs Abnormal weight loss Loss of weight Adenocarcinoma (HCC) Other malignant neoplasm without specification of site 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 Iron deficiency anemia, unspecified iron deficiency anemia type [facility] Diagnosis Iron deficiency anemia, unspecified iron deficiency anemia type- Primary Anemia due to vitamin B12 deficiency, unspecified B12 deficiency type Macrocytosis Other specified diseases of blood and blood-forming organs [facility] Diagnosis Macrocytosis- Primary Other specified diseases of blood and blood-forming organs Abnormal weight loss Loss of weight Adenocarcinoma (HCC) Other malignant neoplasm without specification of site 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 [facility] Diagnosis Iron deficiency anemia, unspecified iron deficiency anemia type- Primary Anemia due to vitamin B12 deficiency, unspecified B12 deficiency type Anemia due to folic acid deficiency, unspecified deficiency type 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 [facility] Diagnosis Macrocytosis- Primary Other specified diseases of blood and blood-forming organs Abnormal weight loss Loss of weight Adenocarcinoma (HCC) Other malignant neoplasm without specification of site 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 [facility] Diagnosis 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 Interstitial pulmonary disease (HCC) Postinflammatory pulmonary fibrosis Iron deficiency anemia, unspecified iron deficiency anemia type Anemia due to vitamin B12 deficiency, unspecified B12 deficiency type [facility] Diagnosis Macrocytosis- Primary Other specified diseases of blood and blood-forming organs Abnormal weight loss Loss of weight Adenocarcinoma (HCC) Other malignant neoplasm without specification of site 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 Anemia due to vitamin B12 deficiency, unspecified B12 deficiency type [facility] Diagnosis 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 Anemia due to vitamin B12 deficiency, unspecified B12 deficiency type Anemia due to folic acid deficiency, unspecified deficiency type Macrocytosis Other specified diseases of blood and blood-forming organs [facility]* Diagnosis Macrocytosis- Primary Other specified diseases of blood and blood-forming organs Anemia due to vitamin B12 deficiency, unspecified B12 deficiency type Anemia due to folic acid deficiency, unspecified deficiency type 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 [facility] Diagnosis Anemia due to vitamin B12 deficiency, unspecified B12 deficiency type- Primary Iron deficiency anemia, unspecified iron deficiency anemia type 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 Duodenal obstruction Other obstruction of duodenum Severe protein-calorie malnutrition (HCC) Other severe protein-calorie malnutrition [facility]: Evaluation note* Diagnosis Anemia due to vitamin B12 deficiency, unspecified B12 deficiency type- Primary [facility] Diagnosis 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 Abnormal weight loss Loss of weight Anemia due to vitamin B12 deficiency, unspecified B12 deficiency type Macrocytosis Other specified diseases of blood and blood-forming organs Iron deficiency anemia, unspecified iron deficiency anemia type [facility] Diagnosis 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 [facility] Diagnosis 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 Anemia due to vitamin B12 deficiency, unspecified B12 deficiency type Iron deficiency anemia, unspecified iron deficiency anemia type [facility] Diagnosis Macrocytosis- Primary Other specified diseases of blood and blood-forming organs Abnormal weight loss Loss of weight Adenocarcinoma (HCC) Other malignant neoplasm without specification of site 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 [facility] 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 Narrative - Reported* Type Description Date Surgical History heart stent Surgical History stomach ulcer 2017 Surgical History gallbladder 2018 Surgical History whipple 2018 [facility] Other History general Narrative - Reported* Type Description Date Medical History BMI 20.0-20.9, adult Medical History Paroxysmal atrial fibrillation Medical History Lumbar pain Medical History Essential hypertension Medical History Tachypnea on examination Medical History Dyspnea on exertion Medical History Anxiety, generalized Medical History Anemia, macrocytic Medical History Elevated LFTs Medical History Fatigue Medical History 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 Surgical History heart stent 2010 Surgical History stomach ulcer 2017 Surgical History gallbladder 2018 Surgical History whipple 2018 Surgical History colonoscopy 2019 Hospitalization History SEE SURGICAL HX [facility] Other Reason for referral (narrative)* Diagnostic Procedure Only (Routine) - Authorized Specialty Diagnoses / Procedures Referred By Contac t Referred To Contact MOLECULAR & FUNCTIONAL IMAGING Diagnoses Cancer of ampulla of Vater (HCC) Procedures NM PET/CT SKULL-THIGH INITIAL PET IMAGING CT ATTENUATION SKULL BASE MID-THIGH Zahra Buitrago MD [address] [place] [address] [place] [address] Molecular & Functional Imaging [address] [place] [address] Referral ID Status Reason Start Date Expiration Date Visits Requested Visits Authorized [id number] Authorized Auto-Generat ed Referral 03/05/2023 03/20/2024 1 1 [facility] Summary Purpose Family History Unknown Family Member Name Dates Details Family history of acute myoc ardial infarction: Father(V17.3, Z82.49) Status:Active Irregular heart rhythm: Brot her Status:Active Unknown Family Member Name Dates Details Family history of acute myoc ardial infarction: Father(V17.3, Z82.49) Status:Active Irregular heart rhythm: Brot her Status:Active Unknown Family Member Name Dates Details Family history of acute myoc ardial infarction: Father(V17.3, Z82.49) Status:Active Irregular heart rhythm: Brot her Status:Active Unknown Family Member Name Dates Details Family history of acute myoc ardial infarction: Father(V17.3, Z82.49) Status:Active Irregular heart rhythm: Brot her Status:Active Unknown Family Member Name Dates Details Family history of acute myoc ardial infarction: Father(V17.3, Z82.49) Status:Active Irregular heart rhythm: Brot her Status:Active Relationship Condition Age at Onset Recorded Date/T [place] Not Specified Heart problem Unknown Hypertension Unknown Diabetes mellitus Unknown father Diabetes mellitus Unknown sister Diabetes mellitus Unknown sister Malignant neoplasm Unknown Unknown Family Member Name Dates Details Family history of acute myoc ardial infarction: Father(V17.3, Z82.49) Status:Active Irregular heart rhythm: Brot her Status:Active Advance Directives Advance Directive Response Recorded Date/ Time Advance Directives No August 07, 2017 10:26am Directive Description Status Resuscitation FULL CODE Verified By [facility] Record Only Advance Directive Response Recorded Date/ Time Advance Directives No February 14, 2023 8:12am Reason for Referral Specialty Diagnoses / Procedures Referred By Marilee t Referred To Contact CT IMAGING Diagnoses Iron deficiency anemia, unspecified iron deficiency anemia type 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) Procedures CT CHEST W IVCON DIAGNOSTIC COMPUTED TOMOGRAPHY THORAX W/CONTRAST Zahra Buitrago MD [address] [place] [address] [place] [address] Ct Imaging Referral ID Status Reason Start Date Expiration Date Visits Requested Visits Authorized [id number] Authorized Auto-Generat ed Referral 02/04/2022 01/04/2023 1 1 Specialty Diagnoses / Procedures [facility] To Contact CT IMAGING Diagnoses Iron deficiency anemia, unspecified iron deficiency anemia type 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) Procedures CT ABD/PEL W IVCON CT ABD & PELVIS W/CONTRAST Zahra Buitrago MD [address] [place] [address] [place] [address] Ct Imaging Referral ID Status Reason Start Date Expiration Date Visits Requested Visits Authorized [id number] Authorized Auto-Generat ed Referral 02/04/2022 01/04/2023 1 1 Specialty Diagnoses / Procedures Referred By Contac t Referred To Contact CT IMAGING Diagnoses Interstitial pulmonary disease (HCC) Cancer of ampulla of Vater (HCC) Anemia due to vitamin B12 deficiency, unspecified B12 deficiency type Procedures CT CHEST W IVCON DIAGNOSTIC COMPUTED TOMOGRAPHY THORAX W/CONTRAST Zahra Buitrago MD [address] [place] [address] [place] [address] Ct Imaging Referral ID Status Reason Start Date Expiration Date Visits Requested Visits Authorized [id number] Authorized Auto-Generat ed Referral 07/04/2022 07/06/2023 1 1 Specialty Diagnoses / Procedures Referred By Contac t Referred To Contact CT IMAGING Diagnoses Interstitial pulmonary disease (HCC) Cancer of ampulla of Vater (HCC) Anemia due to vitamin B12 deficiency, unspecified B12 deficiency type Procedures CT ABD/PEL W IVCON CT ABD & PELVIS W/CONTRAST Zahra Buitrago MD [address] [place] [address] [place] [address] Ct Imaging Referral ID Status Reason Start Date Expiration Date Visits Requested Visits Authorized [id number] Authorized Auto-Generat ed Referral 07/04/2022 07/06/2023 1 1 Reason *FU 12/08 Last 2 O V and xray results - thank you Diagnosis 1 Lumbar pain (M54.50) Referral Organization [facility] marly Referring Provider First Name David Referring Provider Last Name Harshal Referring Provider Specialty Family [facility] Referred Organization [facility] Referred Provider Gladis Lopez Referred Address [address] [place], [place],[address] Referred Provider Specialty Pain Medicin e Referral Priority Routine General Notes Dorene Gunter 02:06:36 PM >received today, attachments made, notes locked, referral faxed Clinical Notes F: [id number] Specialty Diagnoses / Procedures Referred By Contac t Referred To Contact CT IMAGING Diagnoses Cancer of ampulla of Vater (HCC) Anemia due to vitamin B12 deficiency, unspecified B12 deficiency type Severe protein-calorie malnutrition (HCC) Procedures CT CHEST W IVCON DIAGNOSTIC COMPUTED TOMOGRAPHY THORAX W/CONTRAST Zahra Buitrago MD [address] [place] [address] [place] [address] Ct Imaging [id number] Referral ID Status Reason Start Date Expiration Date Visits Requested Visits Authorized [id number] Authorized Auto-Generat ed Referral 06/29/2023 04/14/2024 1 1 Specialty Diagnoses / Procedures Referred By Contac t Referred To Contact CT IMAGING Diagnoses Cancer of ampulla of Vater (HCC) Anemia due to vitamin B12 deficiency, unspecified B12 deficiency type Severe protein-calorie malnutrition (HCC) Procedures CT ABD/PEL W IVCON CT ABD & PELVIS W/CONTRAST Zahra Buitrago MD [address] [place] [address] [place] [address] [place] [address] Referral ID Status Reason Start Date Expiration Date Visits Requested Visits Authorized [id number] Authorized Auto-Generat ed Referral 06/29/2023 04/14/2024 1 1 Medications Administered Section Inactive Administered Medications - up to 3 most recent administrations Medication Order MAR Action Action Date Dose Rate Site cyanocobalamin 1,000 mcg injection 1,000 mcg, INTRAMUSCULAR, ONCE, 1 dose, On [place] 02/13/22 at 1530 Given 02/13/2022 3:20 AM EDT 1,000 mcg Deltoid, Right Inactive Administered Medications - up to 3 most recent administrations Medication Order MAR Action Action Date Dose Rate Site acetaminophen 650 mg tab(s) (TYLENOL) 650 mg, ORAL, ONCE, 1 dose, On [place] 03/13/22 at 1330, Give 30 minutes prior to infusion. No more than 4000 mg of acetaminophen should be given per day (FROM ALL SOURCES), If ordered PRN for pain, patient/guardian may elect to receive this medication for higher pain levels INSTEAD of the opioid, if preferred: N/A Given 03/13/2022 1:40 PM EDT 650 mg cyanocobalamin 1,000 mcg injection 1,000 mcg, INTRAMUSCULAR, ONCE, 1 dose, On [place] 03/13/22 at 1330 Given 03/13/2022 3:01 PM EDT 1,000 mcg Deltoid, Left diphenhydrAMINE 50 mg (BENADRYL) 50 mg, ORAL, ONCE, 1 dose, On [place] 03/13/22 at 1330, Give 30 minutes prior to infusion. Given 03/13/2022 1:40 PM EDT 50 mg ferric derisomaltose 1,000 mg in NaCl 0.9% 100 mL (MONOFERRIC) 1,000 mg (set by rule on 03/08/2022 3:19 PM), INTRAVENOUS, Administer over 45 Minutes, ONCE, 1 dose, On [place] 03/13/22 at 1330, Monitor patient for hypersensitivity reactions during the infusion and for 30 minutes after infusion is complete. EXP 212603/13/22 EXP: (8 HR) New Bag/Syringe/Seun le 03/13/2022 2:15 PM EDT 1,000 mg Inactive Administered Medications - up to 3 most recent administrations Medication Order MAR Action Action Date Dose Rate Site cyanocobalamin 1,000 mcg injection 1,000 mcg, INTRAMUSCULAR, ONCE, 1 dose, On [place] 04/10/22 at 1400 Given 04/10/2022 2:10 PM EDT 1,000 mcg Deltoid, Left ferric derisomaltose 1,000 mg in NaCl 0.9% 100 mL (MONOFERRIC) 1,000 mg (set by rule on 04/10/2022 1:27 PM), INTRAVENOUS, Administer over 20 Minutes, ONCE, 1 dose, On [place] 04/10/22 at 1400, Monitor patient for hypersensitivity reactions during the infusion and for 30 minutes after infusion is complete. EXP 219904/10/22 EXP: (8 HR) New Bag/Syringe/Seun le 04/10/2022 2:06 PM EDT 1,000 mg Inactive Administered Medications - up to 3 most recent administrations Medication Order MAR Action Action Date Dose Rate Site cyanocobalamin 1,000 mcg injection 1,000 mcg, INTRAMUSCULAR, ONCE, 1 dose, On [place] 05/08/22 at 1430 Given 05/08/2022 2:10 PM EST 1,000 mcg Deltoid, Right Inactive Administered Medications - up to 3 most recent administrations Medication Order MAR Action Action Date Dose Rate Site cyanocobalamin 1,000 mcg injection 1,000 mcg, INTRAMUSCULAR, ONCE, 1 dose, On Thu06/06/22 at 1430 Given 06/06/2022 2:34 PM EST 1,000 mcg Deltoid, Right Inactive Administered Medications - up to 3 most recent administrations Medication Order MAR Action Action Date Dose Rate Site cyanocobalamin 1,000 mcg injection 1,000 mcg, INTRAMUSCULAR, ONCE, 1 dose, On [place] 07/03/22 at 1430 Given 07/03/2022 2:30 PM EST 1,000 mcg Deltoid, Right Inactive Administered Medications - up to 3 most recent administrations Medication Order MAR Action Action Date Dose Rate Site cyanocobalamin 1,000 mcg injection 1,000 mcg, INTRAMUSCULAR, ONCE, 1 dose, On Thu09/05/22 at 1400 Given 09/05/2022 2:16 PM EST 1,000 mcg Deltoid, Right Inactive Administered Medications - up to 3 most recent administrations Medication Order MAR Action Action Date Dose Rate Site cyanocobalamin 1,000 mcg injection 1,000 mcg, INTRAMUSCULAR, ONCE, 1 dose, On Thu10/31/22 at 1530 Given 10/31/2022 3:35 PM EDT 1,000 mcg Deltoid, Right Inactive Administered Medications - up to 3 most recent administrations Medication Order MAR Action Action Date Dose Rate Site cyanocobalamin 1,000 mcg injection 1,000 mcg, INTRAMUSCULAR, ONCE, 1 dose, On Thu11/28/22 at 1600 Given 11/28/2022 4:02 PM EDT 1,000 mcg Deltoid, Right Inactive Administered Medications - up to 3 most recent administrations Medication Order MAR Action Action Date Dose Rate Site cyanocobalamin 1,000 mcg injection 1,000 mcg, INTRAMUSCULAR, ONCE, 1 dose, On Thu12/26/22 at 1600 Given 12/26/2022 4:00 PM EDT 1,000 mcg Deltoid, Left Inactive Administered Medications - up to 3 most recent administrations Medication Order MAR Action Action Date Dose Rate Site cyanocobalamin 1,000 mcg injection 1,000 mcg, INTRAMUSCULAR, ONCE, 1 dose, On Thu03/11/23 at 1100 Given 03/11/2023 11:22 AM EDT 1,000 mcg Deltoid, Right Inactive Administered Medications - up to 3 most recent administrations Medication Order MAR Action Action Date Dose Rate Site cyanocobalamin 1,000 mcg injection 1,000 mcg, INTRAMUSCULAR, ONCE, 1 dose, On [place] 04/09/23 at 1500 Given 04/09/2023 3:03 PM EDT 1,000 mcg Deltoid, Right Chief Complaint and Reason for Visit Chief Complaint D64.9 I48.0 E11.9 K9 0.81 E11.9 I10 E46 D64.9 Additional Source Comments (unrecognized sect ion and content) No Status Records FoundNo Status Records FoundNo Status Records FoundNo Status Records FoundNo Status Records FoundNo Status Records FoundNo Status Records Found INFORMATION SOURCE (unrecogn ized section and content) DATE CREATED AUTHOR 12/17/2017 [facility] DATE CREATED AUTHOR AUTHOR'S ORGANIZ ATION 12/31/2017 [facility] DATE CREATED AUTHOR AUTHOR'S ORGANIZ ATION 07/22/2022 [facility] DATE CREATED AUTHOR AUTHOR'S ORGANIZ ATION 09/17/2022 [facility] DATE CREATED AUTHOR AUTHOR'S ORGANIZ ATION 10/03/2022 [facility] DATE CREATED AUTHOR AUTHOR'S ORGANIZ ATION 02/28/2023 [facility] DATE CREATED AUTHOR AUTHOR'S ORGANIZ ATION 04/11/2023 [facility] Source Comments (unrecognize d section and content) In the event this informatio n is protected by the Federal Confidentiality of Alcohol and Drug Abuse Patient Records regulations: The Federal rules restrict any use of the information to criminally investigate or prosecute any alcohol or drug abuse patient.[facility] the event this information is protected by the Federal Confidentiality of Alcohol and Drug Abuse Patient Records regulations: The Federal rules restrict any use of the information to criminally investigate or prosecute any alcohol or drug abuse patient.[facility] Hospital[facility] the event this information is protected by the Federal Confidentiality of Alcohol and Drug Abuse Patient Records regulations: The Federal rules restrict any use of the information to criminally investigate or prosecute any alcohol or drug abuse patient.[facility] HospitalIn the event this information is protected by the Federal Confidentiality of Alcohol and Drug Abuse Patient Records regulations: The Federal rules restrict any use of the information to criminally investigate or prosecute any alcohol or drug abuse patient.[facility] Hospital[facility] the event this information is protected by the Federal Confidentiality of Alcohol and Drug Abuse Patient Records regulations: The Federal rules restrict any use of the information to criminally investigate or prosecute any alcohol or drug abuse patient.[facility] HospitalIn the event this information is protected by the Federal Confidentiality of Alcohol and Drug Abuse Patient Records regulations: The Federal rules restrict any use of the information to criminally investigate or prosecute any alcohol or drug abuse patient.[facility] HospitalIn the event this information is protected by the Federal Confidentiality of Alcohol and Drug Abuse Patient Records regulations: The Federal rules restrict any use of the information to criminally investigate or prosecute any alcohol or drug abuse patient.[facility] HospitalIn the event this information is protected by the Federal Confidentiality of Alcohol and Drug Abuse Patient Records regulations: The Federal rules restrict any use of the information to criminally investigate or prosecute any alcohol or drug abuse patient.[facility] HospitalIn the event this information is protected by the Federal Confidentiality of Alcohol and Drug Abuse Patient Records regulations: The Federal rules restrict any use of the information to criminally investigate or prosecute any alcohol or drug abuse patient.[facility] HospitalIn the event this information is protected by the Federal Confidentiality of Alcohol and Drug Abuse Patient Records regulations: The Federal rules restrict any use of the information to criminally investigate or prosecute any alcohol or drug abuse patient.[facility] HospitalIn the event this information is protected by the Federal Confidentiality of Alcohol and Drug Abuse Patient Records regulations: The Federal rules restrict any use of the information to criminally investigate or prosecute any alcohol or drug abuse patient.[facility] HospitalIn the event this information is protected by the Federal Confidentiality of Alcohol and Drug Abuse Patient Records regulations: The Federal rules restrict any use of the information to criminally investigate or prosecute any alcohol or drug abuse patient.[facility] HospitalIn the event this information is protected by the Federal Confidentiality of Alcohol and Drug Abuse Patient Records regulations: The Federal rules restrict any use of the information to criminally investigate or prosecute any alcohol or drug abuse patient.[facility] HospitalIn the event this information is protected by the Federal Confidentiality of Alcohol and Drug Abuse Patient Records regulations: The Federal rules restrict any use of the information to criminally investigate or prosecute any alcohol or drug abuse patient.[facility] HospitalIn the event this information is protected by the Federal Confidentiality of Alcohol and Drug Abuse Patient Records regulations: The Federal rules restrict any use of the information to criminally investigate or prosecute any alcohol or drug abuse patient.[facility] HospitalIn the event this information is protected by the Federal Confidentiality of Alcohol and Drug Abuse Patient Records regulations: The Federal rules restrict any use of the information to criminally investigate or prosecute any alcohol or drug abuse patient.[facility] HospitalIn the event this information is protected by the Federal Confidentiality of Alcohol and Drug Abuse Patient Records regulations: The Federal rules restrict any use of the information to criminally investigate or prosecute any alcohol or drug abuse patient.[facility] HospitalIn the event this information is protected by the Federal Confidentiality of Alcohol and Drug Abuse Patient Records regulations: The Federal rules restrict any use of the information to criminally investigate or prosecute any alcohol or drug abuse patient.[facility] HospitalIn the event this information is protected by the Federal Confidentiality of Alcohol and Drug Abuse Patient Records regulations: The Federal rules restrict any use of the information to criminally investigate or prosecute any alcohol or drug abuse patient.[facility] HospitalIn the event this information is protected by the Federal Confidentiality of Alcohol and Drug Abuse Patient Records regulations: The Federal rules restrict any use of the information to criminally investigate or prosecute any alcohol or drug abuse patient.[facility] HospitalIn the event this information is protected by the Federal Confidentiality of Alcohol and Drug Abuse Patient Records regulations: The Federal rules restrict any use of the information to criminally investigate or prosecute any alcohol or drug abuse patient.[facility] HospitalIn the event this information is protected by the Federal Confidentiality of Alcohol and Drug Abuse Patient Records regulations: The Federal rules restrict any use of the information to criminally investigate or prosecute any alcohol or drug abuse patient.[facility] HospitalIn the event this information is protected by the Federal Confidentiality of Alcohol and Drug Abuse Patient Records regulations: The Federal rules restrict any use of the information to criminally investigate or prosecute any alcohol or drug abuse patient.[facility] HospitalIn the event this information is protected by the Federal Confidentiality of Alcohol and Drug Abuse Patient Records regulations: The Federal rules restrict any use of the information to criminally investigate or prosecute any alcohol or drug abuse patient.[facility] HospitalIn the event this information is protected by the Federal Confidentiality of Alcohol and Drug Abuse Patient Records regulations: The Federal rules restrict any use of the information to criminally investigate or prosecute any alcohol or drug abuse patient.[facility] HospitalIn the event this information is protected by the Federal Confidentiality of Alcohol and Drug Abuse Patient Records regulations: The Federal rules restrict any use of the information to criminally investigate or prosecute any alcohol or drug abuse patient.[facility] HospitalIn the event this information is protected by the Federal Confidentiality of Alcohol and Drug Abuse Patient Records regulations: The Federal rules restrict any use of the information to criminally investigate or prosecute any alcohol or drug abuse patient.[facility] HospitalIn the event this information is protected by the Federal Confidentiality of Alcohol and Drug Abuse Patient Records regulations: The Federal rules restrict any use of the information to criminally investigate or prosecute any alcohol or drug abuse patient.[facility] HospitalIn the event this information is protected by the Federal Confidentiality of Alcohol and Drug Abuse Patient Records regulations: The Federal rules restrict any use of the information to criminally investigate or prosecute any alcohol or drug abuse patient.[facility] HospitalIn the event this information is protected by the Federal Confidentiality of Alcohol and Drug Abuse Patient Records regulations: The Federal rules restrict any use of the information to criminally investigate or prosecute any alcohol or drug abuse patient.[facility] HospitalIn the event this information is protected by the Federal Confidentiality of Alcohol and Drug Abuse Patient Records regulations: The Federal rules restrict any use of the information to criminally investigate or prosecute any alcohol or drug abuse patient.[facility] HospitalIn the event this information is protected by the Federal Confidentiality of Alcohol and Drug Abuse Patient Records regulations: The Federal rules restrict any use of the information to criminally investigate or prosecute any alcohol or drug abuse patient.[facility] HospitalIn the event this information is protected by the Federal Confidentiality of Alcohol and Drug Abuse Patient Records regulations: The Federal rules restrict any use of the information to criminally investigate or prosecute any alcohol or drug abuse patient.[facility] HospitalIn the event this information is protected by the Federal Confidentiality of Alcohol and Drug Abuse Patient Records regulations: The Federal rules restrict any use of the information to criminally investigate or prosecute any alcohol or drug abuse patient.[facility] HospitalIn the event this information is protected by the Federal Confidentiality of Alcohol and Drug Abuse Patient Records regulations: The Federal rules restrict any use of the information to criminally investigate or prosecute any alcohol or drug abuse patient.[facility] HospitalIn the event this information is protected by the Federal Confidentiality of Alcohol and Drug Abuse Patient Records regulations: The Federal rules restrict any use of the information to criminally investigate or prosecute any alcohol or drug abuse patient.[facility] HospitalIn the event this information is protected by the Federal Confidentiality of Alcohol and Drug Abuse Patient Records regulations: The Federal rules restrict any use of the information to criminally investigate or prosecute any alcohol or drug abuse patient.[facility] HospitalIn the event this information is protected by the Federal Confidentiality of Alcohol and Drug Abuse Patient Records regulations: The Federal rules restrict any use of the information to criminally investigate or prosecute any alcohol or drug abuse patient.[facility] HospitalIn the event this information is protected by the Federal Confidentiality of Alcohol and Drug Abuse Patient Records regulations: The Federal rules restrict any use of the information to criminally investigate or prosecute any alcohol or drug abuse patient.[facility] HospitalIn the event this information is protected by the Federal Confidentiality of Alcohol and Drug Abuse Patient Records regulations: The Federal rules restrict any use of the information to criminally investigate or prosecute any alcohol or drug abuse patient.[facility] HospitalIn the event this information is protected by the Federal Confidentiality of Alcohol and Drug Abuse Patient Records regulations: The Federal rules restrict any use of the information to criminally investigate or prosecute any alcohol or drug abuse patient.[facility] HospitalIn the event this information is protected by the Federal Confidentiality of Alcohol and Drug Abuse Patient Records regulations: The Federal rules restrict any use of the information to criminally investigate or prosecute any alcohol or drug abuse patient.[facility] HospitalIn the event this information is protected by the Federal Confidentiality of Alcohol and Drug Abuse Patient Records regulations: The Federal rules restrict any use of the information to criminally investigate or prosecute any alcohol or drug abuse patient.[facility] HospitalIn the event this information is protected by the Federal Confidentiality of Alcohol and Drug Abuse Patient Records regulations: The Federal rules restrict any use of the information to criminally investigate or prosecute any alcohol or drug abuse patient.[facility] Care Teams (unrecognized sec tion and content) Svp Chief Marketing Officer Relationship Specialty Start Date End Date David Caputo MD [address] [place] [address] PCP - General Family Practice 12/13/19 Jose Segura DO Physician Hematology/Oncology 07/13/19 Rola Gordon, BOOM OPERATOR.DIVIDEND DEPOSIT VOUCHER CLERK [address] [place] [address] Nurse Practitioner Hematology/Oncology 07/13/19 Svp Chief Marketing Officer Relationship Specialty Start Date End Date David Caputo MD [address] [place] [address] PCP - General Family Practice 12/13/19 Jose Segura DO Physician Hematology/Oncology 07/13/19 Rola Gordon, BOOM OPERATOR.DIVIDEND DEPOSIT VOUCHER CLERK [address] [place] [address] Nurse Practitioner Hematology/Oncology 07/13/19 Svp Chief Marketing Officer Relationship Specialty Start Date End Date David Caputo MD [address] [place] [address] PCP - General Family Practice 12/13/19 Jose Segura DO Physician Hematology/Oncology 07/13/19 Rola Gordon, BOOM OPERATOR.DIVIDEND DEPOSIT VOUCHER CLERK [address] [place] [address] Nurse Practitioner Hematology/Oncology 07/13/19 Svp Chief Marketing Officer Relationship Specialty Start Date End Date David Caputo MD [address] [place] [facility] [place] [address] PCP - General Family Practice 12/13/19 Jose Segura, DO Physician Hematology/Oncology 07/13/19 Rola Gordon, BOOM OPERATOR.DIVIDEND DEPOSIT VOUCHER CLERK [address] [place] [address] Nurse Practitioner Hematology/Oncology 07/13/19 Svp Chief Marketing Officer Relationship Specialty Start Date End Date David Caputo MD [address] [place] [facility] [place] [address] PCP - General Family Practice 12/13/19 Jose Segura, DO Physician Hematology/Oncology 07/13/19 Roal Gordon, BOOM OPERATOR.DIVIDEND DEPOSIT VOUCHER CLERK [address] [place] [address] Nurse Practitioner Hematology/Oncology 07/13/19 Svp Chief Marketing Officer Relationship Specialty Start Date End Date David Caputo MD [address] [place] [facility] [place] [address] PCP - General Family Practice 12/13/19 Jose Segura DO Physician Hematology/Oncology 07/13/19 Rola Gordon, BOOM OPERATOR.DIVIDEND DEPOSIT VOUCHER CLERK [address] [place] [address] Nurse Practitioner Hematology/Oncology 07/13/19 Svp Chief Marketing Officer Relationship Specialty Start Date End Date David Caputo MD [address] [place] [address] PCP - General Family Practice 12/13/19 Jose Segura DO Physician Hematology/Oncology 07/13/19 Rola Gordon, BOOM OPERATOR.DIVIDEND DEPOSIT VOUCHER CLERK [address] [place] [address] Nurse Practitioner Hematology/Oncology 07/13/19 Svp Chief Marketing Officer Relationship Specialty Start Date End Date David Caputo MD [address] [place] [address] PCP - General Family Practice 12/13/19 Jose Segura DO Physician Hematology/Oncology 07/13/19 Rola Gordon, BOOM OPERATOR.DIVIDEND DEPOSIT VOUCHER CLERK [address] [place] [address] Nurse Practitioner Hematology/Oncology 07/13/19 Svp Chief Marketing Officer Relationship Specialty Start Date End Date David Caputo MD [address] [place] [facility] [place] [address] PCP - General Family Practice 12/13/19 Jose Segura DO Physician Hematology/Oncology 07/13/19 Rola Gordon, BOOM OPERATOR.DIVIDEND DEPOSIT VOUCHER CLERK [address] [place] [address] Nurse Practitioner Hematology/Oncology 07/13/19 Svp Chief Marketing Officer Relationship Specialty Start Date End Date David Caputo MD [address] [place] [facility] [place] [address] PCP - General Family Practice 12/13/19 Jose Segura DO Physician Hematology/Oncology 07/13/19 Rola Gordon, BOOM OPERATOR.[facility] [address] [place] [address] Nurse Practitioner Hematology/Oncology 07/13/19 Svp Chief Marketing Officer Relationship Specialty Start Date End Date David Caputo MD [address] [place] [facility] [place] [address] PCP - General Family Practice 12/13/19 Jose Segura DO Physician Hematology/Oncology 07/13/19 Rola Gordon, BOOM OPERATOR.[facility] [address] [place] [address] Nurse Practitioner Hematology/Oncology 07/13/19 Svp Chief Marketing Officer Relationship Specialty Start Date End Date Daivd Caputo MD [address] [place] [address] PCP - General Family Medicine 12/13/19 Jose Segura DO Physician Hematology/Oncology 07/13/19 Rola Gordon, BOOM OPERATOR.DIVIDEND DEPOSIT VOUCHER CLERK [address] [place] [address] Nurse Practitioner Hematology/Oncology 07/13/19 Svp Chief Marketing Officer Relationship Specialty Start Date End Date David Caputo MD [address] [place] [facility] [place] [address] PCP - General Family Medicine 12/13/19 Jose Segura DO Physician Hematology/Oncology 07/13/19 Rola Gordon, BOOM OPERATOR.DIVIDEND DEPOSIT VOUCHER CLERK [address] [place] [address] Nurse Practitioner Hematology/Oncology 07/13/19 Svp Chief Marketing Officer Relationship Specialty Start Date End Date David Caputo MD [address] [place] [id number] PCP - General Family Medicine 12/13/19 Jose Segura DO Physician Hematology/Oncology 07/13/19 Rola Gordon, BOOM OPERATOR.[facility] [address] [place] [address] Nurse Practitioner Hematology/Oncology 07/13/19 Svp Chief Marketing Officer Relationship Specialty Start Date End Date David Caputo MD [address] [place] [place] [address] PCP - General Family Medicine 12/13/19 Jose Segura DO Physician Hematology/Oncology 07/13/19 Rola Gordon, BOOM OPERATOR.[address] [place] [address] Nurse Practitioner Hematology/Oncology 07/13/19 Svp Chief Marketing Officer Relationship Specialty Start Date End Date David Caputo MD [address] [place] [address] PCP - General Family Medicine 12/13/19 Jose Segura DO Physician Hematology/Oncology 07/13/19 Rola Gordon, BOOM OPERATOR.[facility] [address] [place] [address] Nurse Practitioner Hematology/Oncology 07/13/19 Svp Chief Marketing Officer Relationship Specialty Start Date End Date David Caputo MD [address] [place] [facility] [place] [address] PCP - General Family Medicine 12/13/19 Jose Segura DO Physician Hematology/Oncology 07/13/19 Rola Gordon, BOOM OPERATOR.DIV[employer]END DEPOSIT VOUCHER CLERK [address] [place] [place] [address] Nurse Practitioner Hematology/Oncology 07/13/19 Svp Chief Marketing Officer Relationship Specialty Start Date End Date David Caputo MD [address] [place] [facility] [place] [address] PCP - General Family Medicine 12/13/19 Jose Segura DO Physician Hematology/Oncology 07/13/19 Rola Gordon, BOOM OPERATOR.DIVIDEND DEPOSIT VOUCHER CLERK [address] [place] [place] [address] Nurse Practitioner Hematology/Oncology 07/13/19 Svp Chief Marketing Officer Relationship Specialty Start Date End Date David Caputo MD [address] [place] [facility] [place] [address] PCP - General Family Medicine 12/13/19 Jose Segura DO Physician Hematology/Oncology 07/13/19 Rola Gordon, BOOM OPERATOR.DIVIDEND DEPOSIT VOUCHER CLERK [address] [place] [address] Nurse Practitioner Hematology/Oncology 07/13/19 Svp Chief Marketing Officer Relationship Specialty Start Date End Date David Caputo MD [address] [place] [facility] [place] [address] PCP - General Family Medicine 12/13/19 Jose Segura DO Physician Hematology/Oncology 07/13/19 Rola Gordon, BOOM OPERATOR.[facility] [address] [place] [address] Nurse Practitioner Hematology/Oncology 07/13/19 Svp Chief Marketing Officer Relationship Specialty Start Date End Date David Caputo MD [address] [place] [address] PCP - General Family Medicine 12/13/19 Jose Segura DO Physician Hematology/Oncology 07/13/19 Rola Gordon, BOOM OPERATOR.DIVIDEND DEPOSIT VOUCHER CLERK [address] [place] [address] Nurse Practitioner Hematology/Oncology 07/13/19 Svp Chief Marketing Officer Relationship Specialty Start Date End Date David Caputo MD [address] [place] [address] PCP - General Family Medicine 12/13/19 Jose Segura DO Physician Hematology/Oncology 07/13/19 Rola Gordon, BOOM OPERATOR.DIVIDEND DEPOSIT VOUCHER CLERK [address] [place] [address] Nurse Practitioner Hematology/Oncology 07/13/19 Svp Chief Marketing Officer Relationship Specialty Start Date End Date David Caputo MD [address] [place] [place] [address] PCP - General Family Medicine 12/13/19 Jose Segura DO Physician Hematology/Oncology 07/13/19 Rola Gordon, BOOM OPERATOR.DIVIDEND DEPOSIT VOUCHER CLERK [address] [place] [address] Nurse Practitioner Hematology/Oncology 07/13/19 Svp Chief Marketing Officer Relationship Specialty Start Date End Date David Caputo MD [address] [place] [id number] PCP - General Family Medicine 12/13/19 Jose Segura DO Physician Hematology/Oncology 07/13/19 Rola Gordon, BOOM OPERATOR.DIVIDEND DEPOSIT VOUCHER CLERK [address] [place] [address] Nurse Practitioner Hematology/Oncology 07/13/19 Svp Chief Marketing Officer Relationship Specialty Start Date End Date David Caputo MD [address] [place] [address] PCP - General Family Medicine 12/13/19 Jose Segura DO Physician Hematology/Oncology 07/13/19 Rola Gordon, BOOM OPERATOR.DIVIDEND DEPOSIT VOUCHER CLERK [address] [place] [address] Nurse Practitioner Hematology/Oncology 07/13/19 Svp Chief Marketing Officer Relationship Specialty Start Date End Date David Caputo MD [address] [place] [place] [address] PCP - General Family Medicine 12/13/19 Jose Segura DO Physician Hematology/Oncology 07/13/19 Rola Gordon, BOOM OPERATOR.DIVIDEND DEPOSIT VOUCHER CLERK [address] [place] [address] [place] [address] Nurse Practitioner Hematology/Oncology 07/13/19 Svp Chief Marketing Officer Relationship Specialty Start Date End Date David Caputo MD [address] [place] [place] [id number] PCP - General Family Medicine 12/13/19 Jose Segura DO Physician Hematology/Oncology 07/13/19 Rola Gordon, BOOM OPERATOR.DIVIDEND DEPOSIT VOUCHER CLERK [address] [place] [address] Nurse Practitioner Hematology/Oncology 07/13/19 Team Status: Active Member Role Status Dates David Caputo MD Primary Care Provider Active Team Status: Inactive Member Role Status Dates David Caputo MD Primary Care Provider Active Adriane Espitia MD Attending Provider Active Svp Chief Marketing Officer Relationship Specialty Start Date End Date David Caputo MD [address] [place] [place] [address] PCP - General Family Medicine 12/13/19 Jose Segura DO Physician Hematology/Oncology 07/13/19 Rola Gordon, BOOM OPERATOR.DIVIDEND DEPOSIT VOUCHER CLERK [address] [place] [address] Nurse Practitioner Hematology/Oncology 07/13/19 Svp Chief Marketing Officer Relationship Specialty Start Date End Date David Caputo MD [address] [place] [place] [address] PCP - General Family Medicine 12/13/19 Jose Segura DO Physician Hematology/Oncology 07/13/19 Rola Gordon, BOOM OPERATOR.DIVIDEND DEPOSIT VOUCHER CLERK [address] [place] [address] Nurse Practitioner Hematology/Oncology 07/13/19 Svp Chief Marketing Officer Relationship Specialty Start Date End Date David Caputo MD [address] [place] [place] [phone] PCP - General Family Medicine 12/13/19 Jose Segura DO Physician Hematology/Oncology 07/13/19 Rola Gordon, BOOM OPERATOR.DIVIDEND DEPOSIT VOUCHER CLERK [address] [place] [address] Nurse Practitioner Hematology/Oncology 07/13/19 Svp Chief Marketing Officer Relationship Specialty Start Date End Date David Caputo MD [address] [place] [place] [address] PCP - General Family Medicine 12/13/19 Jose Segura DO Physician Hematology/Oncology 07/13/19 Rola Gordon, BOOM OPERATOR.DIVIDEND DEPOSIT VOUCHER CLERK [address] [place] [address] Nurse Practitioner Hematology/Oncology 07/13/19 Svp Chief Marketing Officer Relationship Specialty Start Date End Date David Caputo MD [address] [place] [place] [address] PCP - General Family Medicine 12/13/19 Jose Segura DO Physician Hematology/Oncology 07/13/19 Rola Gordon, BOOM OPERATOR.DIVIDEND DEPOSIT VOUCHER CLERK [address] [place] [address] Nurse Practitioner Hematology/Oncology 07/13/19 Svp Chief Marketing Officer Relationship Specialty Start Date End Date David Caputo MD [address] [place] [place] [address] PCP - General Family Medicine 12/13/19 Jose Segura DO Physician Hematology/Oncology 07/13/19 Rola Gordon, BOOM OPERATOR.DIVIDEND DEPOSIT VOUCHER CLERK [address] [place] [address] Nurse Practitioner Hematology/Oncology 07/13/19 Svp Chief Marketing Officer Relationship Specialty Start Date End Date David Caputo MD [address] [place] [place] [address] PCP - General Family Medicine 12/13/19 Jose Segura DO Physician Hematology/Oncology 07/13/19 Rola Gordon, BOOM OPERATOR.DIVIDEND DEPOSIT VOUCHER CLERK [address] [place] [address] Nurse Practitioner Hematology/Oncology 07/13/19 Reason for Visit (unrecogniz ed section and content) Reason Comments cancer of ampulla of vater Reason Comments Care Coordination Medication question Reason Onset Date Comments Refill Request 02/11/2022 Reason Comments Refill Request Reason Comments cancer of ampulla of vater Reason Comments Benefits Investigation Reason Comments Anemia Follow up Specialty Diagnoses / Procedures Referred By Marilee nathan Referred To Contact Diagnoses Iron deficiency anemia, unspecified iron deficiency anemia type Zahra Buitrago MD [address] [place] [address] [facility] Treat Zhane [address] [place] [address] Referral ID Status Reason Start Date Expiration Date V isits Requested Visits Authorized [id number] Authorized 03/08/2022 06/06/2022 99 99 Reason Onset Date Comments Refill Request 03/13/2022 Reason Onset Date Comments Refill Request 03/27/2022 Reason Comments cancer of ampulla of vator Reason Comments Lab Orders Reason Comments Anemia Reason Comments Anemia Reason Comments Results Reason Comments Critical Results Reason Comments Cancer of ampulla of Vater (HCC) Reason Onset Date Comments Refill Request 08/19/2022 Reason Onset Date Comments Refill Request 10/28/2022 Reason Comments Macrocytosis 4 week follow up Reason Comments Results Appointment Reason Comments Hospital Admission Reason Comments Anemia Reason Comments Cancer of ampulla of Vater (HCC) Macrocytosis Follow up Reason Comments Future Appointment Results Reason Onset Date Comments Refill Request 03/30/2023 Goals (unrecognized section and content) Goals may be documented in a n alternate section FOR RECORDS PERTAINING TO PATIENTS WHO ARE OR HAVE BEEN ENROLLED IN A CHEMICAL DEPENDENCY/SUBSTANCEABUSE PROGRAM, SOME INFORMATION MAY BE OMITTED. This clinical summary was aggregated from multiple sources. Caution should be exercised in using it in the provision of clinical care. This summary normalizes information from multiple sources, and as a consequence, information in this document may materially change the coding, format and clinical context of patient data. In addition, data may be omitted in some cases. CLINICAL DECISIONS SHOULD BE BASED ON THE PRIMARY CLINICAL RECORDS. [employer] provides no warranty or guarantee of the accuracy or completeness of information in this document.
--- NOTE | 2023-07-16 00:41 | PC.NURSE ---
Patient arrived via EMS and had vomited on self and in emesis bag. He was given zofran IV by EMS, and states that he is no longer feeling nauseas. Soiled linens were removed and replaced with clean ones and the patient was covered with warm blankets.
--- NOTE | 2023-07-16 00:42 | XR_ITS ---
The [place] [id number] Patient Name: ROCIO JACKSON MRN: [id number] date: 1955 Sex: M Assigned Patient Location: ER Current Patient Location: ER Accession/Order Number: [id number] Exam Date: 07/16/2023 01:00 Report Date: 07/16/2023 01:21 At the request of: LONG FELIX Procedure: XR chest 1V EXAM: XR chest 1V HISTORY: hypoxemia COMPARISON: Chest x-ray, 01/19/2023. TECHNIQUE: AP upright portable chest x-ray. FINDINGS: The patient is mildly rotated to the right. The heart, mediastinum and pulmonary vascularity are within normal limits. There is mild streaky right basilar atelectasis. The lungs and pleural spaces are otherwise clear. Skinfold artifact is seen along the right lateral chest wall. XR/XR chest 1V IMPRESSION: Nonacute chest. Electronically authenticated by: IRVING ROTH Date: 07/16/2023 01:21
[2023-07-16] MEDS: 0.9 % SODIUM CHLORIDE 1,000 ML 999 ML IV ×2 (01:04→01:19)
[2023-07-16] MEDS: ONDANSETRON PF 4 MG/2 ML VIAL IV (01:04)
[2023-07-16 01:24] LABS: Basophils Percent Auto 0.2 % (0.2-2.0); Eosinophils Absolute Auto 0.1 10^3/uL (0.0-0.7); Eosinophils Percent Auto 0.8 % (0.9-7.0); Immature Granulocytes Abs Auto 0.04 10^3/uL (0.00-0.03); Immature Granulocytes Pct Auto 0.3 % (0.0-0.5); Lymphocytes Percent Auto 8.1 % (20.5-60.0); Mean Corpuscular Hemoglobin 32.3 pg (25.9-34.0); Mean Corpuscular Volume 107.5 fL (80.0-94.0); Mean Platelet Volume 9.4 fL (9.5-13.5); Monocytes Absolute Auto 0.7 10^3/uL (0.3-0.8); Monocytes Percent Auto 5.3 % (1.7-12.0); Neutrophils Percent Auto 85.3 % (43.0-75.0); Platelet Count 313 10^3/uL (150-450); Red Blood Count 1.86 10^6/uL (4.70-6.10); Red Cell Distribution Width 12.5 % (11.0-15.0); White Blood Count 12.8 10^3/uL (4.0-11.0)
[2023-07-16 01:45] LABS: Alanine Aminotransferase 18 U/L (16-63); Albumin Globulin Ratio 0.7; Albumin Level 2.4 g/dL (3.4-5.0); Alkaline Phosphatase 95 U/L (46-116); Anion Gap 22.2; Aspartate Amino Transferase 15 U/L (15-37); BUN Creatinine Ratio 45.9; Bilirubin Total 0.1 mg/dL (0.2-1.0); Calcium 8.2 mg/dL (8.5-10.1); Carbon Dioxide 15.2 mmol/L (21.0-32.0); Chloride 107 mmol/L (98-107); Estimated GFR (African America >60 (>=60); Estimated GFR (Non-African Ame >60 (>=60); Globulin 3.4 g/dL; Glucose 183 mg/dL (74-106); Lipase <10.0 U/L (16.0-77.0); Potassium 4.4 mmol/L (3.5-5.1); Sodium 140 mmol/L (136-145); Total Protein 5.8 g/dL (6.4-8.2)
--- NOTE | 2023-07-16 01:50 | CT_ITS ---
The [address] [address] Patient Name: ROCIO JACKSON MRN: [facility]:[id number] date: 1955 Sex: M Assigned Patient Location: ER Current Patient Location: ER Accession/Order Number: [id number] Exam Date: 07/16/2023 02:42 Report Date: 07/16/2023 03:22 At the request of: LONG FELIX Procedure: CT abdomen pelvis w con EXAM: CT abdomen pelvis w con HISTORY: Nausea, vomiting and diarrhea. anemia. History of gastric CA COMPARISON: CT abdomen pelvis, 01/20/2023. TECHNIQUE: IV contrast enhanced CT imaging the abdomen and pelvis was performed using 99 mL of Omnipaque 350 intravenous contrast. Sagittal and coronal reconstructions are provided. Dose reduction techniques were achieved by using automated exposure control and/or adjustment of mA and/or kV according to patient size and/or use of iterative reconstruction technique. FINDINGS: CT ABDOMEN: Patchy infiltrate in the right lower lobe is consistent with pneumonia. There is mild fibrotic scarring in the right middle lobe. The left lung base is clear. Severe coronary arterial calcifications are most prominent in the LAD. Cardiac size is normal. There is no pericardial effusion. Cholecystectomy clips are present. There is no biliary ductal dilatation. Mild pneumobilia is seen in the left hepatic lobe. The liver is otherwise unremarkable. There is diffuse age related pancreatic atrophy. The spleen, adrenal glands, and kidneys appear unremarkable. Each kidney has an extrarenal pelvis, normal variant. Surgical change is seen in the distal stomach. The nonenhanced stomach and small bowel are otherwise grossly unremarkable. There are moderate aortic calcifications without aneurysm or dissection. The IVC is unremarkable. CT PELVIS: Motion artifact degrades the lower abdomen and pelvis. The appendix is not seen. There is nonspecific wall thickening in the decompressed sigmoid colon. The colon is otherwise unremarkable. The pelvic small bowel bowel loops, urinary bladder and prostate appear unremarkable. There is fluid in both inguinal canals, right greater than left. Stool significantly distends the rectal vault with inferior rectal wall thickening and mild posterior perirectal fluid and fat stranding extending into the presacral fat. No loculated fluid, free air or soft tissue gas is seen in the abdomen or pelvis. No acute osseous abnormality or suspicious bony lesion is seen. CT/CT abdomen pelvis w con IMPRESSION: 1. Prior cholecystectomy again noted with mildly increased left hepatic lobe pneumobilia since prior exam presumably due to prior instrumentation. 2. Stool prominently distending the rectal vault with inferior rectal wall thickening mild posterior perirectal fat stranding. Impaction with mild stercoral proctitis cannot be excluded. There is no colonic fluid to correlate with the patient's provided history of diarrhea. 3. Patchy right lower lobe pneumonia. 4. Prominent coronary arterial calcifications. 5. Fluid in the bilateral inguinal canals. Electronically authenticated by: IRVING ROTH Date: 07/16/2023 03:22
--- NOTE | 2023-07-16 02:50 | PC.NURSE ---
patient had episode of stool incontinence. He states that he is sometimes able to feel when he is going to have a bowel movement but is not able to control it. He did arrive wearing a pull up incontinence brief. His stool size was very large, he says this is normal for him, and that he had already had one just prior to coming into the ED tonight. He does have history of stomach cancer, his daughter says that it is gone , he agrees that he is no longer undergoing treatments for this. He has also had two large dark green emesis since arriving.
--- NOTE | 2023-07-16 02:57 | PC.NURSE ---
Patient's son and daughter are now at bedside. Dr Robertson in to speak to them.
[2023-07-16 03:36] LABS: Internal Control Within Normal Limits; Occult Blood Gastric Fluid NEGATIVE
[2023-07-16 03:36] LABS: Occult Blood Positive
[2023-07-16] MEDS: PANTOPRAZOLE SODIUM 40 MG VIAL IV ×2 (04:21→15:22)
[2023-07-16] MEDS: CEFTRIAXONE 1,000 MG in 0.9 % SODIUM CHLORIDE 50 ML 100 MG IV (04:21)
--- NOTE | 2023-07-16 04:41 | PC.NURSE ---
Patient resting in bed. Tylenol has been ordered, patient has not gotten this medication due to pharmacy delay. Patient has been repositioned and pillows have been added to try and alleviate pain.
[2023-07-16] MEDS: ACETAMINOPHEN 500 MG TABLET 1000 MG PO (04:54)
[2023-07-16] MEDS: AZITHROMYCIN 500 MG in 0.9 % SODIUM CHLORIDE 250 ML 250 MG IV (04:54)
--- OUTSIDE RECORDS SUMMARY | 2023-07-16 06:39 | XMS_ITS | CCD ---
Author Name Unknown Address [address] [place] [address] Organization [facility] Care Team Providers Care Lead Technologist In Cytogenetics Name Role Phone MICHAEL JOLLEY) Unavailable Unavailable MICHAEL JOLLEY) Unavailable Unavailable YAMILE CERDA Unavailable Unavailable MICHAEL JOLLEY) Unavailable Unavailable MICHAEL JOLLEY) Unavailable Unavailable MICHAEL JOLLEY) Unavailable Unavailable MICHAEL JOLLEY) Unavailable Unavailable HARMONY HINOJOSA Unavailable Unavailable MAU DUFFY Unavailable Unavailable ADRIANE NICHOLS Unavailable Unavailab manolo Unavailable Unavailable Jose Segura DO Unavailable Henry MECHANICAL ENGINEERING OFFICER.Rola MILAN Unavailable David Caputo MD Primary Care Provider Nate Hanson Unavailable Fortino Segura DOothy J Unavailable Henry MECHANICAL ENGINEERING OFFICER.Rola MILAN Unavailable David Caputo MD Primary Care Provider David Caputo Unavailable Jose Segura DO Unavailable David Caputo MD Primary Care Provider David Caputo MD Primary Care Provider Jose Segura DO Unavailable [phone] Henry MECHANICAL ENGINEERING OFFICER.Rola MILAN Unavailable David Caputo MD Primary Care [...] Meza Primary Care Unavailable CAPUTO, DR DAVID [employer] Unavailable PAY, DR RAY Consulting Unavailable [...] Caputo, MD David Meza Primary Care Provider MD Adriane Espitia Attending Provider Dr. 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) 01/28/2023 7:00:00 take 1 capsule by mouth once arjun ly Vitamin D3 1.25 MG (87739 UT) Oral Capsule TAKE 1 CAPSULE Daily Quantity: 0 Refills: 0 Ordered: 16-Sep-2022 DO Active Creon Oral Capsule Delayed Release Particles [id number] UNIT (2 sources) Start: 02-08-2023 take 38763-26796 [IU] by mouth at mealtime Creon Oral Capsule Delayed Release Particles 68069-60996 UNIT 2 capsule Capsule Delayed Release Particles Oral Give 2 capsule by mouth with meals related to GASTRO-ESOPHAGEAL REFLUX DISEASE WITHOUT ESOPHAGITIS (K21.9);[facility] DIS 02/08/2023 12:00:00 Start: 01-23-2023 End: 02-08-2023 take 98785-78051 [IU] by mouth at mealtime Creon Oral Capsule Delayed Release Particles 38643-52654 UNIT 2 capsule Capsule Delayed Release Particles Oral Give 2 capsule by mouth with meals related to GASTRO-ESOPHAGEAL REFLUX DISEASE WITHOUT ESOPHAGITIS (K21.9);[facility] DIS 01/23/2023 17:00:00 02/08/2023 8:05:00 Aborted enteric [...] Start: 01-24-2023 take 1 capsule by mo [facility] once daily FLUOXETINE HCL 20 MG CAPSULE{100 EA} 1 capsule Capsule Oral GIVE 1 CAPSULE BY MOUTH ONCE DAILY (FORMULARY EQUIVALENT FOR TABLET) 01/24/2023 7:00:00 Start: 11-13-2022 take 1 capsule by mo [facility] every twenty-four hours FLUoxetine HCl 40 MG 1 capsule Orally Once a day for 30 days October, Active Start: 08-13-2022 take 1 capsule by mo [facility] once daily FLUoxetine HCl 20 MG 1 capsule Orally Once a day for 90 days Jul, Active Start: 08-13-2022 take 1 capsule by [facility] every twenty-four hours FLUoxetine HCl 20 MG 1 capsule Orally Once a day for 90 days Jul, Active Start: 03-04-2019 take 20 mg by mouth once daily Fluoxetine Active 20 MG PO Daily March 04, 2019 12:00am Start: 03-17-2018 take 1 capsule by [facility] twice daily FLUoxetine HCl (PROZAC) 40 [...] 11, 2017 August 18, 2017 1:02am amylase 916309 unt / lipase 35987 unt / protease 35381 unt delayed release oral capsule (20 sources) Start: 03-04-2019 End: 11-28-2022 take 2 capsules by mouth three times daily at mealtime tlmnft-inbctgfp-zn ylase (CREON 24) 24,000-76,000 -120,000 unit delayed [...] 90 Refills: 3 Ordered: 13-Feb-2023 Woody Duffy MECHANICAL ENGINEERING OFFICER-SUPPORT TEAM ASSOCMau Start : 13-Feb-2023 Active dose decrease Start: [...] disease (20 sources) Atherosclerotic heart disease of koi coronary artery without angina pectoris; Translations: [Ischemic [...] of anticoagulants] Episodic Other aftercare (1 source) long-term (current) use of anticoagulants; Translations: [JAIL CURRNT USE ANTICOAGULANTS] Onset: 3 Episodic Other aftercare (1 source) Other financial management (current) drug therapy; Translations: [OTH JAIL CURRENT DRUG THERAPY] Onset: 3 Episodic Other [...] Unclassified (1 source) 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) [...] Reference Range Facility CNNURSEon 04-09-2023 CNNURSE Normal [facility] CBC W Auto Differential pane l (Bld)on 03-11-2023 Basophils (Bld) [#/Vol] 10*3/uL Normal <0.11 [facility] Comment on above: Order Comment: Speci men Type: BLOOD SPECIMENOrdering Facility: [facility] Address: [address] [place] [address] Performed By: #### 5 7021-8 ####[facility] LABCLIA [id number] [place] [address] Basophils/100 WBC (Bld) 0.2 % Normal [facility] Comment on above: Order Comment: Speci men Type: BLOOD SPECIMENOrdering Facility: [facility] Address: [address] [address] Performed By: #### 5 7021-8 ####[facility] LABCLIA [id number] [place] [address] Differential cell count method Nom (Bld) Auto Normal [facility] Comment on above: Order Comment: Speci men Type: BLOOD SPECIMENOrdering Facility: [facility] Address: [address] [place] [address] Performed By: #### 5 7021-8 ####[facility] LABCLIA [id number] [place] [address] Eosinophils (Bld) [#/Vol] 0.18 10*3/uL Normal <0.46 [facility] Comment on above: Order Comment: Speci men Type: BLOOD SPECIMENOrdering Facility: [facility] Address: [address] [address] Performed By: #### 5 7021-8 ####[facility] LABCLIA [id number] [place] [address] Eosinophils/100 WBC (Bld) 2.9 % Normal [facility] Comment on above: Order Comment: Speci men Type: BLOOD SPECIMENOrdering Facility: [facility] Address: [address] [place] [address] Performed By: #### 5 7021-8 ####[facility] LABCLIA [id number] [place] [address] Erythrocyte distribution width (RBC) [Ratio] 13.5 % Normal 11.5-15.0 [facility] Comment on above: Order Comment: Speci men Type: BLOOD SPECIMENOrdering Facility: [facility] Address: [address] [place] [address] Performed By: #### 5 7021-8 ####[facility] LABCLIA [id number] [place] [address] Hematocrit (Bld) [Volume fraction] 32.3 % Low 39.0-51.0 [facility] Comment on above: Order Comment: Speci men Type: BLOOD SPECIMENOrdering Facility: [facility] Address: [address] [place] [address] Performed By: #### 5 7021-8 ####[facility] LABCLIA [id number] [place] [address] Hemoglobin (Bld) [Mass/Vol] 10.3 g/dL Low 13.0-17.0 [facility] Comment on above: Order Comment: Speci men Type: BLOOD SPECIMENOrdering Facility: [facility] Address: [address] [place] [address] Performed By: #### 5 7021-8 ####[facility] LABCLIA [id number] [place] [address] Immature granulocytes (Bld) [#/Vol] 10*3/uL Normal <0.10 [facility] Comment on above: Order Comment: Speci men Type: BLOOD SPECIMENOrdering Facility: [facility] Address: [address] [place] [address] Performed By: #### 5 7021-8 ####[facility] LABCLIA [id number] [place] [address] Immature granulocytes/100 WBC (Bld) 0.3 % Normal [facility] Comment on above: Order Comment: Speci men Type: BLOOD SPECIMENOrdering Facility: [facility] Address: [address] [place] [address] Performed By: #### 5 7021-8 ####[facility] LABCLIA [id number] [place] [address] Lymphocytes (Bld) [#/Vol] 1.81 10*3/uL Normal 1.00-4.00 [facility] Comment on above: Order Comment: Speci men Type: BLOOD SPECIMENOrdering Facility: [facility] Address: [address] [place] [address] Performed By: #### 5 7021-8 ####[facility] LABCLIA [id number] [place] [address] Lymphocytes/100 WBC (Bld) 28.8 % Normal [facility] Comment on above: Order Comment: Speci men Type: BLOOD SPECIMENOrdering Facility: [facility] Address: [address] [place] [address] Performed By: #### 5 7021-8 ####[facility] LABIA [id number] [place] [address] MCH (RBC) [Entitic mass] 31.6 pg Normal 26.0-34.0 [facility] Comment on above: Order Comment: Speci men Type: BLOOD SPECIMENOrdering Facility: [facility] Address: [address] [place] [address] Performed By: #### 5 7021-8 ####[facility] LABCLIA [id number] [place] [address] MCHC (RBC) [Mass/Vol] 31.9 g/dL Normal 30.5-36.0 [facility] Comment on above: Order Comment: Speci men Type: BLOOD SPECIMENOrdering Facility: [facility] Address: [address] [place] [address] Performed By: #### 5 7021-8 ####[facility] LABIA [id number] [place] [address] MCV (RBC) [Entitic vol] 99.1 fL Normal 80.0-100.0 [facility] Comment on above: Order Comment: Speci men Type: BLOOD SPECIMENOrdering Facility: [facility] Address: [address] [address] Performed By: #### 5 7021-8 ####[facility] LABCLIA [id number] [place] [address] Monocytes (Bld) [#/Vol] 0.66 10*3/uL Normal <0.87 [facility] Comment on above: Order Comment: Speci men Type: BLOOD SPECIMENOrdering Facility: [facility] Address: [address] [address] Performed By: #### 5 7021-8 ####[facility] LABCLIA [id number] [place] [address] Monocytes/100 WBC (Bld) 10.5 % Normal [facility] Comment on above: Order Comment: Speci men Type: BLOOD SPECIMENOrdering Facility: [facility] Address: [address] [address] Performed By: #### 5 7021-8 ####[facility] LABCLIA [id number] [place] [address] Neutrophils (Bld) [#/Vol] 3.60 10*3/uL Normal 1.45-7.50 [facility] Comment on above: Order Comment: Speci men Type: BLOOD SPECIMENOrdering Facility: [facility] Address: [address] [address] Performed By: #### 5 7021-8 ####[facility] LABCLIA [id number] [place] [address] Neutrophils/100 WBC (Bld) 57.3 % Normal [facility] Comment on above: Order Comment: Speci men Type: BLOOD SPECIMENOrdering Facility: [facility] Address: [address] [address] Performed By: #### 5 7021-8 ####[facility] LABCLIA [id number] [place] [address] Nucleated RBC (Bld) [#/Vol] 10*3/uL Normal <0.01 [facility] Comment on above: Order Comment: Speci men Type: BLOOD SPECIMENOrdering Facility: [facility] Address: [address] [place] [address] Performed By: #### 5 7021-8 ####[facility] LABCLIA [id number] [place] [address] Nucleated RBC/100 WBC (Bld) [Ratio] 0.0 /100 WBC Normal [facility] Comment on above: Order Comment: Speci men Type: BLOOD SPECIMENOrdering Facility: [facility] Address: [address] [place] [address] Performed By: #### 5 7021-8 ####[facility] LABCLIA [id number] [place] [address] Platelet mean volume (Bld) [Entitic vol] 9.3 fL Normal 9.0-12.7 [facility] Comment on above: Order Comment: Speci men Type: BLOOD SPECIMENOrdering Facility: [facility] Address: [address] [place] [address] Performed By: #### 5 7021-8 ####[facility] LABCLIA [id number] [place] [address] Platelets (Bld) [#/Vol] 298 10*3/uL Normal 150-400 [facility] Comment on above: Order Comment: Speci men Type: BLOOD SPECIMENOrdering Facility: [facility] Address: [address] [place] [address] Performed By: #### 5 7021-8 ####[facility] LABCLIA [id number] [place] [address] RBC (Bld) [#/Vol] 3.26 10*6/uL Low 4.20-6.00 [facility] Comment on above: Order Comment: Speci men Type: BLOOD SPECIMENOrdering Facility: [facility] Address: [address] [place] [address] Performed By: #### 5 7021-8 ####[facility] LABCLIA [id number] [place] [address] WBC (Bld) [#/Vol] 6.28 10*3/uL Normal 3.70-11.00 [facility] Comment on above: Order Comment: Speci men Type: BLOOD SPECIMENOrdering Facility: [facility] Address: [address] [place] [address] Performed By: #### 5 7021-8 ####[facility] LABIA [id number] [place] [address] CNNURSEon 03-11-2023 CNNURSE Normal [facility] CNOVSPon 03-11-2023 CNOVSP Normal [facility] CNPNon 03-11-2023 CNPN Normal [facility] Comprehensive metabolic 2000 panelon 03-11-2023 Albumin [Mass/Vol] 3.5 g/dL Low 3.9-4.9 [facility] Comment on above: Order Comment: Speci men Type: BLOOD SPECIMENOrdering Facility: [facility] Address: [address] [place] [address] Performed By: #### 2 4323-8 ####[facility] LABCLIA [id number] [place] [address] ALP [Catalytic activity/Vol] 107 U/L Normal 38-113 [facility] Comment on above: Order Comment: Speci men Type: BLOOD SPECIMENOrdering Facility: [facility] Address: [address] [place] [address] Performed By: #### 2 4323-8 ####[facility] LABCLIA [id number] [place] [address] ALT [Catalytic activity/Vol] 17 U/L Normal 10-54 [facility] Comment on above: Order Comment: Speci men Type: BLOOD SPECIMENOrdering Facility: [facility] Address: [address] [place] [address] Performed By: #### 2 4323-8 ####[facility] LABCLIA [id number] [place] [address] Anion gap [Moles/Vol] 11 mmol/L Normal 9-18 [facility] Comment on above: Order Comment: Speci men Type: BLOOD SPECIMENOrdering Facility: [facility] Address: [address] [address] Performed By: #### 2 4323-8 ####[facility] LABCLIA [id number] [place] [address] AST [Catalytic activity/Vol] 18 U/L Normal 14-40 [facility] Comment on above: Order Comment: Speci men Type: BLOOD SPECIMENOrdering Facility: [facility] Address: [address] [place] [address] Performed By: #### 2 4323-8 ####[facility] LABCLIA [id number] [place] [address] Bilirubin [Mass/Vol] 0.3 mg/dL Normal 0.2-1.3 [facility] Comment on above: Order Comment: Speci men Type: BLOOD SPECIMENOrdering Facility: [facility] Address: [address] [place] [address] Performed By: #### 2 4323-8 ####[facility] LABCLIA [id number] [place] [address] Calcium [Mass/Vol] 9.3 mg/dL Normal 8.5-10.2 [facility] Comment on above: Order Comment: Speci men Type: BLOOD SPECIMENOrdering Facility: [facility] Address: [address] [place] [address] Performed By: #### 2 4323-8 ####[facility] LABCLIA [id number] [place] [address] Chloride [Moles/Vol] 106 mmol/L High 97-105 [facility] Comment on above: Order Comment: Speci men Type: BLOOD SPECIMENOrdering Facility: [facility] Address: [address] [place] [address] Performed By: #### 2 4323-8 ####[facility] LABCLIA [id number] [place] [address] CO2 [Moles/Vol] 22 mmol/L Normal 22-30 [facility] Comment on above: Order Comment: Speci men Type: BLOOD SPECIMENOrdering Facility: [facility] Address: [address] [place] [address] Performed By: #### 2 4323-8 ####[facility] LABCLIA [id number] [place] [address] Creatinine [Mass/Vol] 0.77 mg/dL Normal 0.73-1.22 [facility] Comment on above: Order Comment: Speci men Type: BLOOD SPECIMENOrdering Facility: [facility] Address: [address] [place] [address] Performed By: #### 2 4323-8 ####[facility] LABCLIA [id number] [place] [address] Creatinine and Glomerular filtration rate.predicted panel (S/P/Bld) 99 mL/min/1.73m??? Normal >=60 [facility] Comment on above: Order Comment: Speci men Type: BLOOD SPECIMENOrdering Facility: [facility] Address: [address] [place] [address] Result Comment: Megan mated Glomerular Filtration Rate [...] actual GFR. Performed By: #### 2 4323-8 ####[facility] LABCLIA [id number] [place] [address] Glucose [Mass/Vol] 117 mg/dL High 74-99 [facility] Comment on above: Order Comment: Speci men Type: BLOOD SPECIMENOrdering Facility: [facility] Address: [address] [place] [address] Result Comment: The [place] [employer] (ADA) provides guidance for cutoff [...] Standards of Medical Care in Diabetes 2016, [place] [employer]. Diabetes Care. 2016.39(Suppl 1). Performed By: #### 2 4323-8 ####[facility] LABCLIA [id number] [place] [address] Potassium [Moles/Vol] 4.2 mmol/L Normal 3.7-5.1 [facility] Comment on above: Order Comment: Speci men Type: BLOOD SPECIMENOrdering Facility: [facility] Address: [address] [place] [address] Performed By: #### 2 4323-8 ####[facility] LABCLIA [id number] [place] [address] Protein [Mass/Vol] 6.8 g/dL Normal 6.3-8.0 [facility] Comment on above: Order Comment: Speci men Type: BLOOD SPECIMENOrdering Facility: [facility] Address: [address] [place] [address] Performed By: #### 2 4323-8 ####[facility] LABCLIA [id number] [place] [address] Sodium [Moles/Vol] 139 mmol/L Normal 136-144 [facility] Comment on above: Order Comment: Speci men Type: BLOOD SPECIMENOrdering Facility: [facility] Address: [address] [place] [address] Performed By: #### 2 4323-8 ####[facility] LABCLIA [id number] [place] [address] Urea nitrogen [Mass/Vol] 22 mg/dL Normal 9-24 [facility] Comment on above: Order Comment: Speci men Type: BLOOD SPECIMENOrdering Facility: [facility] Address: [address] [place] [address] Performed By: #### 2 4323-8 ####[facility] LABIA [id number] [place] [address] [facility] Ferritin [Mass/Vol] 302.0 ng/mL Normal 30.3-565.7 [facility] Comment on above: Order Comment: Speci men Type: BLOOD SPECIMENOrdering Facility: [facility] Address: [address] [place] [address] Performed By: #### 5 0190-8, 2132-02, 4 ####[facility] LABCLIA [id number] [place] [address] [place] Iron and Iron binding capaci ty panelon 03-11-2023 Iron [Mass/Vol] 37 ug/dL Low 41-186 [facility] Comment on above: Order Comment: Speci men Type: BLOOD SPECIMENOrdering Facility: [facility] Address: [address] [place] [address] Performed By: #### 5 0190-8, 9, 2275-4 ####[facility] LABCLIA [id number] [id number] [address] [place] Iron binding capacity [Mass/Vol] Normal [facility] Comment on above: Order Comment: Speci men Type: BLOOD SPECIMENOrdering Facility: [facility] Address: [address] [place], [place] [address] Result Comment: Unab le to calculate due to hemolysis. Performed By: #### 5 0190-8, 9, 2275-09 ####[facility] LABCLIA [id number] [place] [address] [place] Iron/TIBC [Molar ratio] Normal [facility] Comment on above: Order Comment: Speci men Type: BLOOD SPECIMENOrdering Facility: [facility] Address: [address] [place], [place] [id number] Result Comment: Unab le to calculate due to hemolysis. Performed By: #### 5 0190-8, 2132-02, 2275-09 ####[facility] LABIA [id number] [place] [address] [place] NM PET/CT SKULL-THIGH INITon 03-11-2023 NM PET/CT SKULL-THIGH INIT Normal [facility] Vit B12 SerPl-ncon 023 Cobalamin (Vitamin B12) [Mass/Vol] 758 pg/mL Normal 232-1245 [facility] Comment on above: Order Comment: Speci men Type: BLOOD SPECIMENOrdering Facility: [facility] Address: [address] [place], [place] [id number] Performed By: #### 5 0190-8, 2132-02, 2275-09 ####[facility] LABCLIA [id number] [place] [address] [place] CNPNon 03-05-2023 CNPN Normal [facility] CBC W Auto Differential pane l (Bld)on 02-19-2023 Basophils (Bld) [#/Vol] 10*3/uL Normal <0.11 [facility] Comment on above: Order Comment: Speci men Type: BLOOD SPECIMENOrdering Facility: [facility] Address: [address] [address] Performed By: #### 5 7021-8 ####[facility] LABCLIA [id number] [place] [address] Basophils/100 WBC (Bld) 0.4 % Normal [facility] Comment on above: Order Comment: Speci men Type: BLOOD SPECIMENOrdering Facility: [facility] Address: [address] [place] [address] Performed By: #### 5 7021-8 ####[facility] LABCLIA [id number] [place] [address] Differential cell count method Nom (Bld) Auto Normal [facility] Comment on above: Order Comment: Speci men Type: BLOOD SPECIMENOrdering Facility: [facility] Address: [address] [place] [address] Performed By: #### 5 7021-8 ####[facility] LABCLIA [id number] [place] [address] Eosinophils (Bld) [#/Vol] 0.15 10*3/uL Normal <0.46 [facility] Comment on above: Order Comment: Speci men Type: BLOOD SPECIMENOrdering Facility: [facility] Address: [address] [place] [address] Performed By: #### 5 7021-8 ####[facility] LABCLIA [id number] [place] [address] Eosinophils/100 WBC (Bld) 3.2 % Normal [facility] Comment on above: Order Comment: Speci men Type: BLOOD SPECIMENOrdering Facility: [facility] Address: [address] [place] [address] Performed By: #### 5 7021-8 ####[facility] LABCLIA [id number] [place] [address] Erythrocyte distribution width (RBC) [Ratio] 13.3 % Normal 11.5-15.0 [facility] Comment on above: Order Comment: Speci men Type: BLOOD SPECIMENOrdering Facility: [facility] Address: [address] [place] [address] Performed By: #### 5 7021-8 ####[facility] LABCLIA [id number] [place] [address] Hematocrit (Bld) [Volume fraction] 30.7 % Low 39.0-51.0 [facility] Comment on above: Order Comment: Speci men Type: BLOOD SPECIMENOrdering Facility: [facility] Address: [address] [place] [address] Performed By: #### 5 7021-8 ####[facility] LABCLIA [id number] [place] [address] Hemoglobin (Bld) [Mass/Vol] 9.8 g/dL Low 13.0-17.0 [facility] Comment on above: Order Comment: Speci men Type: BLOOD SPECIMENOrdering Facility: [facility] Address: [address] [place] [address] Performed By: #### 5 7021-8 ####[facility] LABCLIA [id number] [place] [address] Immature granulocytes (Bld) [#/Vol] 10*3/uL Normal <0.10 [facility] Comment on above: Order Comment: Speci men Type: BLOOD SPECIMENOrdering Facility: [facility] Address: [address] [place] [address] Performed By: #### 5 7021-8 ####[facility] LABCLIA [id number] [place] [address] Immature granulocytes/100 WBC (Bld) 0.2 % Normal [facility] Comment on above: Order Comment: Speci men Type: BLOOD SPECIMENOrdering Facility: [facility] Address: [address] [place] [address] Performed By: #### 5 7021-8 ####[facility] LABCLIA [id number] [place] [address] Lymphocytes (Bld) [#/Vol] 1.19 10*3/uL Normal 1.00-4.00 [facility] Comment on above: Order Comment: Speci men Type: BLOOD SPECIMENOrdering Facility: [facility] Address: [address] [place] [address] Performed By: #### 5 7021-8 ####[facility] LABCLIA [id number] [place] [address] Lymphocytes/100 WBC (Bld) 25.4 % Normal [facility] Comment on above: Order Comment: Speci men Type: BLOOD SPECIMENOrdering Facility: [facility] Address: [address] [place] [address] Performed By: #### 5 7021-8 ####[facility] LABIA [id number] [place] [address] MCH (RBC) [Entitic mass] 31.6 pg Normal 26.0-34.0 [facility] Comment on above: Order Comment: Speci men Type: BLOOD SPECIMENOrdering Facility: [facility] Address: [address] [place] [address] Performed By: #### 5 7021-8 ####[facility] LABCLIA [id number] [place] [address] MCHC (RBC) [Mass/Vol] 31.9 g/dL Normal 30.5-36.0 [facility] Comment on above: Order Comment: Speci men Type: BLOOD SPECIMENOrdering Facility: [facility] Address: [address] [place] [address] Performed By: #### 5 7021-8 ####[facility] LABIA [id number] [place] [address] MCV (RBC) [Entitic vol] 99.0 fL Normal 80.0-100.0 [facility] Comment on above: Order Comment: Speci men Type: BLOOD SPECIMENOrdering Facility: [facility] Address: [address] [address] Performed By: #### 5 7021-8 ####[facility] LABCLIA [id number] [place] [address] Monocytes (Bld) [#/Vol] 0.37 10*3/uL Normal <0.87 [facility] Comment on above: Order Comment: Speci men Type: BLOOD SPECIMENOrdering Facility: [facility] Address: [address] [place] [address] Performed By: #### 5 7021-8 ####[facility] LABCLIA [id number] [place] [address] Monocytes/100 WBC (Bld) 7.9 % Normal [facility] Comment on above: Order Comment: Speci men Type: BLOOD SPECIMENOrdering Facility: [facility] Address: [address] [place] [address] Performed By: #### 5 7021-8 ####[facility] LABCLIA [id number] [place] [address] Neutrophils (Bld) [#/Vol] 2.94 10*3/uL Normal 1.45-7.50 [facility] Comment on above: Order Comment: Speci men Type: BLOOD SPECIMENOrdering Facility: [facility] Address: [address] [place] [address] Performed By: #### 5 7021-8 ####[facility] LABCLIA [id number] [place] [address] Neutrophils/100 WBC (Bld) 62.9 % Normal [facility] Comment on above: Order Comment: Speci men Type: BLOOD SPECIMENOrdering Facility: [facility] Address: [address] [place] [address] Performed By: #### 5 7021-8 ####[facility] LABCLIA [id number] [place] [address] Nucleated RBC (Bld) [#/Vol] 10*3/uL Normal <0.01 [facility] Comment on above: Order Comment: Speci men Type: BLOOD SPECIMENOrdering Facility: [facility] Address: [address] [place] [address] Performed By: #### 5 7021-8 ####[facility] LABCLIA [id number] [place] [address] Nucleated RBC/100 WBC (Bld) [Ratio] 0.0 /100 WBC Normal [facility] Comment on above: Order Comment: Speci men Type: BLOOD SPECIMENOrdering Facility: [facility] Address: [address] [place] [address] Performed By: #### 5 7021-8 ####[facility] LABCLIA [id number] [place] [address] Platelet mean volume (Bld) [Entitic vol] 8.9 fL Low 9.0-12.7 [facility] Comment on above: Order Comment: Speci men Type: BLOOD SPECIMENOrdering Facility: [facility] Address: [address] [place] [address] Performed By: #### 5 7021-8 ####[facility] LABCLIA [id number] [place] [address] Platelets (Bld) [#/Vol] 266 10*3/uL Normal 150-400 [facility] Comment on above: Order Comment: Speci men Type: BLOOD SPECIMENOrdering Facility: [facility] Address: [address] [place] [address] Performed By: #### 5 7021-8 ####[facility] LABIA [id number] [place] [address] RBC (Bld) [#/Vol] 3.10 10*6/uL Low 4.20-6.00 [facility] Comment on above: Order Comment: Speci men Type: BLOOD SPECIMENOrdering Facility: [facility] Address: [address] [address] Performed By: #### 5 7021-8 ####[facility] LABIA [id number] [place] [address] WBC (Bld) [#/Vol] 4.68 10*3/uL Normal 3.70-11.00 [facility] Comment on above: Order Comment: Speci men Type: BLOOD SPECIMENOrdering Facility: [facility] Address: [address] [address] Performed By: #### 5 7021-8 ####[facility] LABIA [id number] [place] [address] CNNURSEon 02-19-2023 CNNURSE Normal [facility] CNOVSPon 02-19-2023 CNOVSP Normal [facility] Comprehensive metabolic 2000 panelon 02-19-2023 Albumin [Mass/Vol] 3.8 g/dL Low 3.9-4.9 [facility] Comment on above: Order Comment: Speci men Type: BLOOD SPECIMENOrdering Facility: [facility] Address: [address] [address] Performed By: #### 2 4323-8 ####[facility] LABIA [id number] [place] [address] ALP [Catalytic activity/Vol] 112 U/L Normal 38-113 [facility] Comment on above: Order Comment: Speci men Type: BLOOD SPECIMENOrdering Facility: [facility] Address: [address] [address] Performed By: #### 2 4323-8 ####[facility] LABIA [id number] [place] [address] ALT [Catalytic activity/Vol] 17 U/L Normal 10-54 [facility] Comment on above: Order Comment: Speci men Type: BLOOD SPECIMENOrdering Facility: [facility] Address: [address] [address] Performed By: #### 2 4323-8 ####[facility] LABCLIA [id number] [place] [address] Anion gap [Moles/Vol] 11 mmol/L Normal 9-18 [facility] Comment on above: Order Comment: Speci men Type: BLOOD SPECIMENOrdering Facility: [facility] Address: [address] [place] [address] Performed By: #### 2 4323-8 ####[facility] LABCLIA [id number] [place] [address] AST [Catalytic activity/Vol] 16 U/L Normal 14-40 [facility] Comment on above: Order Comment: Speci men Type: BLOOD SPECIMENOrdering Facility: [facility] Address: [address] [place] [address] Performed By: #### 2 4323-8 ####[facility] LABCLIA [id number] [place] [address] Bilirubin [Mass/Vol] 0.2 mg/dL Normal 0.2-1.3 [facility] Comment on above: Order Comment: Speci men Type: BLOOD SPECIMENOrdering Facility: [facility] Address: [address] [place] [address] Performed By: #### 2 4323-8 ####[facility] LABCLIA [id number] [place] [address] Calcium [Mass/Vol] 9.6 mg/dL Normal 8.5-10.2 [facility] Comment on above: Order Comment: Speci men Type: BLOOD SPECIMENOrdering Facility: [facility] Address: [address] [place] [address] Performed By: #### 2 4323-8 ####[facility] LABCLIA [id number] [place] [address] Chloride [Moles/Vol] 106 mmol/L High 97-105 [facility] Comment on above: Order Comment: Speci men Type: BLOOD SPECIMENOrdering Facility: [facility] Address: [address] [address] Performed By: #### 2 4323-8 ####[facility] LABCLIA [id number] [place] [address] CO2 [Moles/Vol] 20 mmol/L Low 22-30 [facility] Comment on above: Order Comment: Speci men Type: BLOOD SPECIMENOrdering Facility: [facility] Address: [address] [address] Performed By: #### 2 4323-8 ####[facility] LABCLIA [id number] [place] [address] Creatinine [Mass/Vol] 0.72 mg/dL Low 0.73-1.22 [facility] Comment on above: Order Comment: Speci men Type: BLOOD SPECIMENOrdering Facility: [facility] Address: [address] [place] [address] Performed By: #### 2 4323-8 ####[facility] LABCLIA [id number] [place] [address] Creatinine and Glomerular filtration rate.predicted panel (S/P/Bld) 101 mL/min/1.73m??? Normal >=60 [facility] Comment on above: Order Comment: Speci men Type: BLOOD SPECIMENOrdering Facility: [facility] Address: [address] [place] [address] Result Comment: Megan mated Glomerular Filtration Rate [...] actual GFR. Performed By: #### 2 4323-8 ####[facility] LABCLIA [id number] [place] [address] Glucose [Mass/Vol] 165 mg/dL High 74-99 [facility] Comment on above: Order Comment: Speci men Type: BLOOD SPECIMENOrdering Facility: [facility] Address: [address] [place] [address] Result Comment: The [place] [employer] (ADA) provides guidance for cutoff [...] Standards of Medical Care in Diabetes 2016, [place] [employer]. Diabetes Care. 2016.39(Suppl 1). Performed By: #### 2 4323-8 ####[facility] LABCLIA [id number] [place] [address] Potassium [Moles/Vol] 4.2 mmol/L Normal 3.7-5.1 [facility] Comment on above: Order Comment: Speci men Type: BLOOD SPECIMENOrdering Facility: [facility] Address: [address] [place] [address] Performed By: #### 2 4323-8 ####[facility] LABCLIA [id number] [place] [address] Protein [Mass/Vol] 7.0 g/dL Normal 6.3-8.0 [facility] Comment on above: Order Comment: Speci men Type: BLOOD SPECIMENOrdering Facility: [facility] Address: [address] [place] [address] Performed By: #### 2 4323-8 ####[facility] LABCLIA [id number] [place] [address] Sodium [Moles/Vol] 137 mmol/L Normal 136-144 [facility] Comment on above: Order Comment: Speci men Type: BLOOD SPECIMENOrdering Facility: [facility] Address: [address] [address] Performed By: #### 2 4323-8 ####[facility] LABCLIA [id number] [place] [address] Urea nitrogen [Mass/Vol] 22 mg/dL Normal 9-24 [facility] Comment on above: Order Comment: Speci men Type: BLOOD SPECIMENOrdering Facility: [facility] Address: [address] [place] [address] Performed By: #### 2 4323-8 ####[facility] LABCLIA [id number] [place] [address] Ferritin SerPl-mCncon 2022 Ferritin [Mass/Vol] 247.0 ng/mL Normal 30.3-565.7 [facility] Comment on above: Order Comment: Speci men Type: BLOOD SPECIMENOrdering Facility: [facility] Address: [address] [place] [address] Performed By: #### 5 0190-8, 9, 2275-, 8 ####[facility] LABCLIA [id number] [place] [address] [place] Folate SerPl-mCncon 02-20-20 23 Folate [Mass/Vol] ng/mL Normal >4.[address] [facility] Comment on above: Order Comment: [facility] Type: BLOOD SPECIMENOrdering Facility: [facility] Address: [address] [place] [address] Result Comment: A re sult of > 20 ng/mL is not necessarily indicative of a pathologic or treatable condition: it reflects a limitation of the test methodology.Assay reference range: 4.8 to 24.2 ng/mL. Suitable for detection of folate deficiency.Reference:Folate III (Folate III) [package insert V 1.0 Japanese]. [facility], [place], [place]: April 2015. Performed By: #### 5 01908, 2132-02, 2275-09, 2284-01 ####[facility] LABIA [id number] [address] [id number] [place] Iron and Iron binding capaci ty panelon 02-19-2023 Iron [Mass/Vol] 30 ug/dL Low 41-186 [facility] Comment on above: Order Comment: Speci men Type: BLOOD SPECIMENOrdering Facility: [facility] Address: [address] [place] [address] Performed By: #### 5 0190-8, 9, 2275-09, 2284-01 ####[facility] [id number] [place] [address] [place] Iron binding capacity [Mass/Vol] 208 ug/dL Low 232-386 [facility] Comment on above: Order Comment: Speci men Type: BLOOD SPECIMENOrdering Facility: [facility] Address: [address] [place] [address] Performed By: #### 5 0190-8, 9, 2275-09, 2284-01 ####[facility] [id number] [place] [address] [place] Iron/TIBC [Molar ratio] 14.4 % Low 15.0-57.0 [facility] Comment on above: Order Comment: Speci men Type: BLOOD SPECIMENOrdering Facility: [facility] Address: [address] [place] [address] Performed By: #### 5 0190-8, 9, 2275-09, 2284-01 ####[facility] [id number] [address] [id number] [place] Vit B12 SerPl-mCncon 023 Cobalamin (Vitamin B12) [Mass/Vol] 636 pg/mL Normal 232-1245 [facility] Comment on above: Order Comment: Speci men Type: BLOOD SPECIMENOrdering Facility: [facility] Address: [address] [place], [place] [address] [place] [address] Performed By: #### 5 0190-8, 2132-9, 2276-4, 2284-8 ####[facility] LABCLIA [id number] [facility] [id number] [address] [place] CNPNon 02-17-2023 CNPN Normal [facility] Albumin Levelon 02-10-2023 Albumin [Mass/Vol] 3.4 g/dL Low 3.5-5.7 [facility] Comment on above: Order Comment: Diagn osis: E11.9, I10, E46, D64.9 Comment: [id number] Gonzalez RM112, TORY, 02/06/23 Result Comment: PERF ORMED BY: [address] [place] [address] PATHOLOGIST HEEL ATTACHER ESTIVEN GENTILE M.D. Performed By: #### A VIPIN HIGGINBOTHAM, CBC #### [facility] [address] [place] [address] [place] Albumin [Mass/volume] in Ser um or Plasma by Bromocresol green (BCG) dye binding methoOrdered By: Adriane Espitia on 02-10-2023 Albumin BCG dye [Mass/Vol] 3.4 g/dL 3.5-5.7 [facility] Basic Metabolic Panelon 01-27 Anion gap [Moles/Vol] 11.5 mmol/L Normal 6.0-15.0 [facility] Comment on above: Order Comment: Diagn osis: E11.9, I10, E46, D64.9 Comment: [id number] Gonzalez, RMRobinson, HM, 02/06/23 Performed By: #### A VIPIN HIGGINBOTHAM, CBC #### [facility] [address] [place] [address] [place] Calcium [Mass/Vol] 8.8 mg/dL Normal 8.6-10.3 [facility] Comment on above: Order Comment: Diagn osis: E11.9, I10, E46, D64.9 Comment: [id number], OGONTZ, RM112, HM, 02/06/23 Performed By: #### A LB, BMP, CBC #### [facility] [address] [place] [address] [place] Chloride [Moles/Vol] 103 mmol/L Normal 98-107 [facility] Comment on above: Order Comment: Diagn osis: E11.9, I10, E46, D64.9 Comment: [id number], OGONTZ, RM112, HM, 02/06/23 Performed By: #### A LB, BMP, CBC #### [facility] [address] [place] [address] [facility] CO2 [Moles/Vol] 25.2 mmol/L Normal 21.0-31.0 [facility] Comment on above: Order Comment: Diagn osis: E11.9, I10, E46, D64.9 Comment: [id number], OGONTZ, RM112, HM, 02/06/23 Performed By: #### A LB, BMP, CBC #### [facility] [address] [place] [id number] [facility] Creatinine [Mass/Vol] 0.65 mg/dL Low 0.70-1.30 [facility] Comment on above: Order Comment: Diagn osis: E11.9, I10, E46, D64.9 Comment: [id number], OGONTZ, RM112, HM, 02/06/23 Performed By: #### A LB, BMP, CBC #### [facility] [address] [place] [id number] [place] GFR/1.73 sq M.predicted MDRD (S/P/Bld) [Vol rate/Area] mL/min/{1.73_m2} Normal [facility] Comment on above: Order Comment: Diagn osis: E11.9, I10, E46, D64.9 Comment: [id number], OGONTZ, RM112, HM, 02/06/23 Performed By: #### A LB, BMP, CBC #### [facility] [address] [place] [address] [place] Glucose [Mass/Vol] 102 mg/dL High 70-100 [facility] Comment on above: Order Comment: Diagn osis: E11.9, I10, E46, D64.9 Comment: [id number], OGNICOLAS, RM112, HM, 02/06/23 Result Comment: [place] Glucose Reference Range is dependent on time and content of last meal. Glucose of more than 200 mg/dL in a nonstressed, ambulatory subject supports the diagnosis of Diabetes Mellitus. ADA recommended reference range Performed By: #### A LB BMP, CBC #### [facility] [address] Potassium [Moles/Vol] 4.7 mmol/L Normal 3.5-5.1 [facility] Comment on above: Order Comment: Diagn osis: E11.9, I10, E46, D64.9 Comment: [id number], DECLAN, RM112, , 02/06/23 Performed By: #### A ANAHY BMP, CBC #### [address] Sodium [Moles/Vol] 135 mmol/L Low 136-145 [facility] Comment on above: Order Comment: Diagn osis: E11.9, I10, E46, D64.9 Comment: [id number], DECLAN, RM112, , 02/06/23 Performed By: #### A ANAHY BMP, CBC #### [address] Urea nitrogen [Mass/Vol] 19 mg/dL Normal 7-25 [facility] Comment on above: Order Comment: Diagn osis: E11.9, I10, E46, D64.9 Comment: [id number], OGMIKHAILZ, RM112, HM, 02/06/23 Performed By: #### A LB, BMP, CBC #### [facility] [address] [place] [phone] [place] Basophils Auto (Bld) [#/Vol] Ordered By: Adriane Espitia on 02-10-2023 Basophils (Bld) [#/Vol] 0.0 10*3/uL 0.0-0.2 [facility] Basophils/100 WBC Auto (Bld) Ordered By: Adriane Espitia on 02-10-2023 Basophils/100 WBC (Bld) 0.4 % . [facility] Calcium [Mass/volume] in Ser um or PlasmaOrdered By: Adriane Espitia on 02-10-2023 Calcium [Mass/Vol] 8.8 mg/dL 8.6-10.3 [facility] Carbon dioxide, total [Moles /volume] in Serum or PlasmaOrdered By: Adriane Espitia on 02-10-2023 CO2 [Moles/Vol] 25.2 mmol/L 21.0-31.0 [facility] Chloride [Moles/volume] in S branid or PlasmaOrdered By: Adriane Espitia on 02-10-2023 Chloride [Moles/Vol] 103 mmol/L 98-107 [facility] Complete Blood Count Auto Di ffon 02-10-2023 Basophils (Bld) [#/Vol] 0.0 10*3/uL Normal 0.0-0.2 [facility] Comment on above: Order Comment: Diagn osis: E11.9, I10, E46, D64.9 Comment: [id number], DECLAN, RM112, HM, 02/06/23 Result Comment: PERF ORMED BY: [place] [address] PATHOLOGIST HEEL ATTACHER ESTIVEN GENTILE M.D. Performed By: #### A LB, BMP, CBC #### [facility] [address] [place] [address] Basophils/100 WBC (Bld) 0.4 % Normal . [facility] Comment on above: Order Comment: Diagn osis: E11.9, I10, E46, D64.9 Comment: [id number], DECLAN, RM112, HM, 02/06/23 Performed By: #### A LB, BMP, CBC #### [facility] [address] [place] [address] Eosinophils (Bld) [#/Vol] 0.1 10*3/uL Normal 0.0-0.45 [facility] Comment on above: Order Comment: Diagn osis: E11.9, I10, E46, D64.9 Comment: [id number], DECLAN, RM112, HM, 02/06/23 Performed By: #### A LB, BMP, CBC #### [facility] [address] Eosinophils/100 WBC (Bld) 3.1 % Normal . [facility] Comment on above: Order Comment: Diagn osis: E11.9, I10, E46, D64.9 Comment: [id number], OGONTZ, RM112, HM, 02/06/23 Performed By: #### A LB, BMP, CBC #### [address] Erythrocyte distribution width (RBC) [Ratio] 14.4 % Normal 12.0-14.8 [facility] Comment on above: Order Comment: Diagn osis: E11.9, I10, E46, D64.9 Comment: [id number], OGONTZ, RM112, , 02/06/23 Performed By: #### A LB, BMP, CBC #### [address] Hematocrit (Bld) [Volume fraction] 30.9 % Low 38.8-50.0 [facility] Comment on above: Order Comment: Diagn osis: E11.9, I10, E46, D64.9 Comment: [id number], OGONTZ, RM112, HM, 02/06/23 Performed By: #### A LB, BMP, CBC #### [facility] [address] [place] [address] Hemoglobin (Bld) [Mass/Vol] 10.3 g/dL Low 13.0-17.0 [facility] Comment on above: Order Comment: Diagn osis: E11.9, I10, E46, D64.9 Comment: [id number], OGONTZ, RM112, HM, 02/06/23 Performed By: #### A LB, BMP, CBC #### [address] Lymphocytes (Bld) [#/Vol] 1.3 10*3/uL Normal 1.00-4.8 [facility] Comment on above: Order Comment: Diagn osis: E11.9, I10, E46, D64.9 Comment: [id number], OGONTZ, RM112, , 02/06/23 Performed By: #### A LB, BMP, CBC #### [address] Lymphocytes/100 WBC (Bld) 28.3 % Normal . [facility] Comment on above: Order Comment: Diagn osis: E11.9, I10, E46, D64. Comment: [id number], OGONTZ, RM112, , 02/06/23 Performed By: #### A LB, BMP, CBC #### [address] MCH (RBC) [Entitic mass] 32.0 pg Normal 27.5-35.2 [facility] Comment on above: Order Comment: Diagn osis: E11.9, I10, E46, D64. Comment: [id number], OGONTZ, RM112, , 02/06/23 Performed By: #### A LB, BMP, CBC #### [address] MCV (RBC) [Entitic vol] 96.3 fL Normal 83.5-101 [facility] Comment on above: Order Comment: Diagn osis: E11.9, I10, E46, D64. Comment: [id number], OGMIKHAILZ, RM112, , 02/06/23 Performed By: #### A LB, BMP, CBC #### [address] Mean Corpuscular HGB Conc 33.3 g/dL Normal 32.5-35.6 [facility] Comment on above: Order Comment: Diagn osis: E11.9, I10, E46, D6. Comment: [id number], OGONTZ, RM112, , 02/06/23 Performed By: #### A LB, BMP, CBC #### [address] Monocytes (Bld) [#/Vol] 0.5 10*3/uL Normal 0.0-0.8 [facility] Comment on above: Order Comment: Diagn osis: E11.9, I10, E46, D64.9 Comment: [id number], OGONTZ, RM112, HM, 02/06/23 Performed By: #### A LB, BMP, CBC #### [facility] [address] [place] [address] [place] Monocytes/100 WBC (Bld) 10.1 % Normal . [facility] Comment on above: Order Comment: Diagn osis: E11.9, I10, E46, D64.9 Comment: [id number], OGONTZ, RM112, HM, 02/06/23 Performed By: #### A LB, BMP, CBC #### [facility] [address] [place] [id number] [place] Neutrophils (Bld) [#/Vol] 2.7 10*3/uL Normal 1.8-7.7 [facility] Comment on above: Order Comment: Diagn osis: E11.9, I10, E46, D64.9 Comment: [id number], OGONTZ, RM112, HM, 02/06/23 Performed By: #### A LB, BMP, CBC #### [facility] [address] [place] [id number] [place] Neutrophils/100 WBC (Bld) 58.1 % Normal . [facility] Comment on above: Order Comment: Diagn osis: E11.9, I10, E46, D64.9 Comment: [id number], OGONTZ, RM112, HM, 02/06/23 Performed By: #### A LB, BMP, CBC #### [facility] [address] [place] [address] [place] NRBC% 0.0 /100{WBC} Normal 0-0.5 University [facility] Comment on above: Order Comment: Diagn osis: E11.9, I10, E46, D64.9 Comment: [id number], OGONTZ, RM112, HM, 02/06/23 Performed By: #### A LB, BMP, CBC #### [facility] [address] [id number] [place] Platelet mean volume (Bld) [Entitic vol] 7.6 fL Normal 6.6-10.1 [facility] Comment on above: Order Comment: Diagn osis: E11.9, I10, E46, D64.9 Comment: [id number], OGONTZ, RM112, HM, 02/06/23 Performed By: #### A LB, BMP, CBC #### [facility] [address] Platelets (Bld) [#/Vol] 281 10*3/uL Normal 150-450 [facility] Comment on above: Order Comment: Diagn osis: E11.9, I10, E46, D64.9 Comment: [id number], OGONTZ, RM112, , 02/06/23 Performed By: #### A LB, BMP, CBC #### [facility] [address] [place] [address] RBC (Bld) [#/Vol] 3.21 10*6/uL Low 3.90-5.60 [facility] Comment on above: Order Comment: Diagn osis: E11.9, I10, E46, D64.9 Comment: [id number], OGONTZ, RM112, , 02/06/23 Performed By: #### A LB, BMP, CBC #### [facility] [address] [place] [address] WBC (Bld) [#/Vol] 4.7 10*3/uL Normal 4.1-10.5 [facility] Comment on above: Order Comment: Diagn osis: E11.9, I10, E46, D64.9 Comment: [id number], OGONTZ, RM112, HM, 02/06/23 Performed By: #### A LB, BMP, CBC #### [facility] [address] [place] [address] Creatinine [Mass/volume] in Serum or PlasmaOrdered By: Adriane Espitia on 02-10-2023 Creatinine [Mass/Vol] 0.65 mg/dL 0.70-1.30 [facility] Eosinophils Auto (Bld) [#/Vo l]Ordered By: Adriane Espitia on 02-10-2023 Eosinophils (Bld) [#/Vol] 0.1 10*3/uL 0.0-0.45 [facility] Eosinophils/100 WBC Auto (Bl d)Ordered By: Adriane Espitia on 02-10-2023 Eosinophils/100 WBC (Bld) 3.1 % . [facility] Erythrocyte distribution wid th Auto (RBC) [Ratio]Ordered By: Adriane Espitia on 02-10-2023 Erythrocyte distribution width (RBC) [Ratio] 14.4 % 12.0-14.8 [facility] Glucose [Mass/volume] in Ser um or PlasmaOrdered By: Adriane Espitia on 02-10-2023 Glucose [Mass/Vol] 102 mg/dL 70-100 [facility] Comment on above: ADA recommended refe rence rangeRandom Glucose Reference Range is dependent on time and content of last meal. Glucose of more than 200 mg/dL in a nonstressed, ambulatory subject supports the diagnosis of Diabetes Mellitus. Hematocrit Auto (Bld) [Volum e fraction]Ordered By: Adriane Espitia on 02-10-2023 Hematocrit (Bld) [Volume fraction] 30.9 % 38.8-50.0 [facility] Hemoglobin [Mass/volume] in BloodOrdered By: Adriane Espitia on 02-10-2023 Hemoglobin (Bld) [Mass/Vol] 10.3 g/dL 13.0-17.0 [facility] Leukocytes [#/volume] correc missael for nucleated erythrocytes in Blood by Automated counOrdered By: Adriane Espitia on 02-10-2023 WBC corrected for nucl RBC Auto (Bld) [#/Vol] 4.7 10*3/uL 4.1-10.5 [facility] Lymphocytes Auto (Bld) [#/Vo l]Ordered By: Adriane Espitia on 02-10-2023 Lymphocytes (Bld) [#/Vol] 1.3 10*3/uL 1.00-4.8 [facility] Lymphocytes/100 WBC Auto (Bl d)Ordered By: Adriane Espitia on 02-10-2023 Lymphocytes/100 WBC (Bld) 28.3 % . [facility] MCH Auto (RBC) [Entitic mass ]Ordered By: Adriane Espitia on 02-10-2023 MCH (RBC) [Entitic mass] 32.0 pg 27.5-35.2 [facility] MCHC Auto (RBC) [Mass/Vol]Or dered By: Adriane Espitia on 02-10-2023 MCHC (RBC) [Mass/Vol] 33.3 g/dL 32.5-35.6 [facility] MCV Auto (RBC) [Entitic vol] Ordered By: Adriane Espitia on 02-10-2023 MCV (RBC) [Entitic vol] 96.3 fL 83.5-101 [facility] Monocytes Auto (Bld) [#/Vol] Ordered By: Adriane Espitia on 02-10-2023 Monocytes (Bld) [#/Vol] 0.5 10*3/uL 0.0-0.8 [facility] Monocytes/100 WBC Auto (Bld) Ordered By: Adriane Espitia on 02-10-2023 Monocytes/100 WBC (Bld) 10.1 % . [facility] Neutrophils Auto (Bld) [#/Vo l]Ordered By: Adriane Espitia on 02-10-2023 Neutrophils (Bld) [#/Vol] 2.7 10*3/uL 1.8-7.7 [facility] Neutrophils/100 WBC Auto (Bl d)Ordered By: Adriane Espitia on 02-10-2023 Neutrophils/100 WBC (Bld) 58.1 % . [facility] No Panel InformationOrdered By: Adriane Espitia on 02-10-2023 Estimated GFR (CKD-EPI) > 60.0 mL/Min [facility] Creatinine Clearance (Chem N/A [facility] Nucleated erythrocytes [Pres ence] in Blood by Automated countOrdered By: Adriane Espitia on 02-10-2023 Nucleated RBC Auto Ql (Bld) 0.0 /100{WBC} 0-0.5 [facility] Platelet mean volume Auto (B ld) [Entitic vol]Ordered By: Adriane Espitia on 02-10-2023 Platelet mean volume (Bld) [Entitic vol] 7.6 fL 6.6-10.1 [facility] Platelets Auto (Bld) [#/Vol] Ordered By: Adriane Espitia on 02-10-2023 Platelets (Bld) [#/Vol] 281 10*3/uL 150-450 [facility] Potassium [Moles/volume] in Serum or PlasmaOrdered By: Adriane Espitia on 02-10-2023 Potassium [Moles/Vol] 4.7 mmol/L 3.5-5.1 [facility] RBC Auto (Bld) [#/Vol]Ordere d By: Adriane Espitia on 02-10-2023 RBC (Bld) [#/Vol] 3.21 10*6/uL 3.90-5.60 [facility] Relevant diagnostic tests/la boratory data Narrativeon 02-10-2023 Albumin [Mass/Vol] 3.4 g/dL Low 3.5-5.7 [facility] Work Phone: Anion gap [Moles/Vol] 11.5 mmol/L 6.0-15.0 [facility] Work Phone: Basophils (Bld) [#/Vol] 0 10*3/uL 0.0-0.2 [facility] Work Phone: Basophils/100 WBC (Bld) 0.4 % . [facility] Work Phone: Calcium [Mass/Vol] 8.8 mg/dL 8.6-10.3 [facility] Work Phone: Chloride [Moles/Vol] 103 mmol/L 98-107 [facility] Work Phone: CO2 [Moles/Vol] 25.2 mmol/L 21.0-31.0 [facility] Work Phone: Creatinine [Mass/Vol] 0.65 mg/dL Low 0.70-1.30 [facility] Work Phone: Eosinophils (Bld) [#/Vol] 0.1 10*3/uL 0.0-0.45 [facility] Work Phone: Eosinophils/100 WBC (Bld) 3.1 % . [facility] Work Phone: Erythrocyte distribution width (RBC) [Entitic vol] 14.4 % 12.0-14.8 [facility] Work Phone: GFR/1.73 sq M.predicted MDRD (S/P/Bld) [Vol rate/Area] mL/min/{1.73_m2} [facility] Work Phone: Glucose [Mass/Vol] 102 mg/dL High 70-100 [facility] Work Phone: Hematocrit (Bld) [Volume fraction] 30.9 % Low 38.8-50.0 [facility] Work Phone: Hemoglobin (Bld) [Mass/Vol] 10.3 g/dL Low 13.0-17.0 [facility] Work Phone: Lymphocytes (Bld) [#/Vol] 1.3 10*3/uL 1.00-4.8 [facility] Work Phone: Lymphocytes/100 WBC (Bld) 28.3 % . [facility] Work Phone: MCH (RBC) [Entitic mass] 96.3 fL 83.5-101 [facility] Work Phone: MCH (RBC) [Entitic mass] 32 pg 27.5-35.2 [facility] Work Phone: MCHC (RBC) [Mass/Vol] 33.3 g/dL 32.5-35.6 [facility] Work Phone: Monocytes (Bld) [#/Vol] 0.5 10*3/uL 0.0-0.8 [facility] Work Phone: Monocytes/100 WBC (Bld) 10.1 % . [facility] Work Phone: Neutrophils (Bld) [#/Vol] 2.7 10*3/uL 1.8-7.7 [facility] Work Phone: Neutrophils/100 WBC (Bld) 58.1 % . [facility] Work Phone: Nucleated RBC (Bld) [#/Vol] 0 /100{WBC} 0-0.5 [facility] Work Phone: Platelet mean volume (Bld) [Entitic vol] 7.6 fL 6.6-10.1 [facility] Work Phone: Platelets (Bld) [#/Vol] 281 10*3/uL 150-450 [facility] Work Phone: Potassium [Moles/Vol] 4.7 mmol/L 3.5-5.1 [facility] Work Phone: RBC (Bld) [#/Vol] 3.21 10*6/uL Low 3.90-5.60 [facility] Work Phone: Sodium [Moles/Vol] 135 mmol/L Low 136-145 [facility] Work Phone: Urea nitrogen [Mass/Vol] 19 mg/dL 7 [facility] Work Phone: WBC (Bld) [#/Vol] 4.7 10*3/uL 4.1-10.5 [facility] Work Phone: WBC casts LM.LPF (Urine sed) [#/Area] 4.7 10*3/uL 4.1-10.5 [facility] Work Phone: Serum or plasma anion gap de terminationOrdered By: Adriane Espitia on 02-10-2023 Anion gap [Moles/Vol] 11.5 mmol/L 6.0-15.0 [facility] Sodium [Moles/volume] in Ser um or PlasmaOrdered By: Adriane Espitia on 02-10-2023 Sodium [Moles/Vol] 135 mmol/L 136-145 [facility] Urea nitrogen [Mass/volume] in Serum or PlasmaOrdered By: Adriane Espitia on 02-10-2023 Urea nitrogen [Mass/Vol] 19 mg/dL 7-25 [facility] WBC Auto (Bld) [#/Vol]Ordere d By: Adriane Omkar on 02-10-2023 WBC (Bld) [#/Vol] 4.7 10*3/uL 4.1-10.5 [facility] Relevant diagnostic tests/la boratory data Narrativeon 01-28-2023 Albumin [Mass/Vol] 2.9 g/dL Low 3.5-5.7 [facility] Work Phone: Anion gap [Moles/Vol] 7.1 mmol/L 6.0-15.0 [facility] Work Phone: Basophils (Bld) [#/Vol] 0 10*3/uL 0.0-0.2 [facility] Work Phone: Basophils/100 WBC (Bld) 0.5 % . [facility] Work Phone: C-Peptide 1.4 ng/mL 1.1-4.4 [facility] Work Phone: Calcium [Mass/Vol] 7.8 mg/dL Low 8.6-10.3 [facility] Work Phone: Chloride [Moles/Vol] 109 mmol/L High 98-107 [facility] Work Phone: Cholesterol [Mass/Vol] 72 mg/dL Low 140-200 [facility] Work Phone: Cholesterol in HDL [Mass/Vol] 22 mg/dL Low 23-92 [facility] Work Phone: Cholesterol.total/Cho lesterol in HDL [Mass ratio] 3.3 {ratio} <5.0 [facility] Work Phone: CK [Catalytic activity/Vol] 59 U/L 30-223 [facility] Work Phone: CO2 [Moles/Vol] 25.2 mmol/L 21.0-31.0 [facility] Work Phone: Cobalamin (Vitamin B12) [Mass/Vol] 498 pg/mL 180-914 [facility] Work Phone: Creatinine [Mass/Vol] 0.66 mg/dL Low 0.70-1.30 [facility] Work Phone: Eosinophils (Bld) [#/Vol] 0.1 10*3/uL 0.0-0.45 [facility] Work Phone: Eosinophils/100 WBC (Bld) 3.7 % . [facility] Work Phone: Erythrocyte distribution width (RBC) [Entitic vol] 14.7 % 12.0-14.8 [facility] Work Phone: GFR/1.73 sq M.predicted MDRD (S/P/Bld) [Vol rate/Area] mL/min/{1.73_m2} [facility] Work Phone: Glucose [Mass/Vol] 151 mg/dL [facility] Work Phone: Glucose [Mass/Vol] 111 mg/dL High 70-100 [facility] Work Phone: HbA1c (Bld) [Mass fraction] 6.9 % High 4.3-5.6 [facility] Work Phone: Hematocrit (Bld) [Volume fraction] 27.4 % Low 38.8-50.0 [facility] Work Phone: Hemoglobin (Bld) [Mass/Vol] 9.1 g/dL Low 13.0-17.0 [facility] Work Phone: LDL Cholesterol,Calculate d 40 mg/dL 0-100 [facility] Work Phone: Lymphocytes (Bld) [#/Vol] 1.1 10*3/uL 1.00-4.8 [facility] Work Phone: Lymphocytes/100 WBC (Bld) 27.2 % . [facility] Work Phone: MCH (RBC) [Entitic mass] 95.3 fL 83.5-101 [facility] Work Phone: MCH (RBC) [Entitic mass] 31.7 pg 27.5-35.2 [facility] Work Phone: MCHC (RBC) [Mass/Vol] 33.3 g/dL 32.5-35.6 [facility] Work Phone: Monocytes (Bld) [#/Vol] 0.4 10*3/uL 0.0-0.8 [facility] Work Phone: Monocytes/100 WBC (Bld) 10.1 % . [facility] Work Phone: Neutrophils (Bld) [#/Vol] 2.3 10*3/uL 1.8-7.7 [facility] Work Phone: Neutrophils/100 WBC (Bld) 58.5 % . [facility] Work Phone: Nucleated RBC (Bld) [#/Vol] 0.2 /100{WBC} 0-0.5 [facility] Work Phone: Platelet mean volume (Bld) [Entitic vol] 7 fL 6.6-10.1 [facility] Work Phone: Platelets (Bld) [#/Vol] 302 10*3/uL 150-450 [facility] Work Phone: Potassium [Moles/Vol] 4.3 mmol/L 3.5-5.1 [facility] Work Phone: RBC (Bld) [#/Vol] 2.88 10*6/uL Low 3.90-5.60 [facility] Work Phone: Reticulocyte Number 0.035 10*6/uL 0.024-0 .08 4 [facility] Work Phone: Reticulocyte Percent 1.2 % 0.5-1.5 [facility] Work Phone: Sodium [Moles/Vol] 137 mmol/L 136-145 [facility] Work Phone: Triglyceride w/Reflex 52 mg/dL 0-149 [facility] Work Phone: Urea nitrogen [Mass/Vol] 16 mg/dL 7-25 [facility] Work Phone: Vitamin D 25 Hydroxy Total < 7.0 Low 30-100 [facility] Work Phone: VLDL CHOLESTEROL 10 mg/dL [facility] Work Phone: WBC (Bld) [#/Vol] 4 10*3/uL Low 4.1-10.5 [facility] Work Phone: WBC casts LM.LPF (Urine sed) [#/Area] 4 10*3/uL Low 4.1-10.5 [facility] Work Phone: A1C with Estimated Average G corkymarisa 01-27-2023 Glucose [Mass/Vol] 151 mg/dL Normal [facility] Comment on above: Order Comment: Diagn osis: D64.9, I48.0, E11.9, K90.81 Comment: DECLAN Lo [id number], HM, 01/23/23 Result Comment: PERF ORMED BY: [place] [address] PATHOLOGIST HEEL ATTACHER ESTIVEN GENTILE M.D. Performed By: #### C K, B12, RETIC, CBC, BMP, LIPID, [id number], A1C WTH eA, ALB #### [facility] [address] [place] [address] #### CPEP #### [facility] , HbA1c (Bld) [Mass fraction] 6.9 % High 4.3-5.6 [facility] Comment on above: Order Comment: Diagn osis: D64.9, I48.0, E11.9, K90.81 Comment: DECLAN Lo [id number], HM, 01/23/23 Result Comment: Incr eased risk for diabetes: 5.7 - 6.4 diabetes: >6.4 glycemic control for adults with diabetes: <7.0 Performed By: #### C K, B12, RETIC, CBC, BMP, LIPID, [id number], A1C WTH eA, ALB #### [place] [address] [place] #### CPEP #### [facility] , Absolute reticulocyte countO rdered By: Adriane Espitia on 01-27-2023 Reticulocytes (Bld) [#/Vol] 0.035 10*6/uL 0.024-0.08 4 [facility] Albumin Levelon 01-27-2023 Albumin [Mass/Vol] 2.9 g/dL Low 3.5-5.7 [facility] Comment on above: Order Comment: Diagn osis: D64.9, I48.0, E11.9, K90.81 Comment: [id number], ALYSSIA MANRIQUEZ, , 01/23/23 Performed By: #### C K, B12, RETIC, CBC, BMP, LIPID, [id number], A1C WTH eA, ALB #### [address] #### CPEP #### [facility] , Albumin [Mass/volume] in Ser um or Plasma by Bromocresol green (BCG) dye binding methoOrdered By: Adriane Espitia on 01-27-2023 Albumin BCG dye [Mass/Vol] 2.9 g/dL 3.5-5.7 [facility] Basic Metabolic Panelon Anion gap [Moles/Vol] 7.1 mmol/L Normal 6.0-15.0 [facility] Comment on above: Order Comment: Diagn osis: D64.9, I48.0, E11.9, K90.81 Comment: [id number], ALYSSIA MANRIQUEZ, , 01/23/23 Performed By: #### C K, B12, RETIC, CBC, BMP, LIPID, [id number], A1C WTH eA, ALB #### [place] [address] [place] #### CPEP #### [facility] , Calcium [Mass/Vol] 7.8 mg/dL Low 8.6-10.3 [facility] Comment on above: Order Comment: Diagn osis: D64.9, I48.0, E11.9, K90. Comment: [id number], OGMIKHAILZ, RM112, , 01/23/23 Performed By: #### C K, B12, RETIC, CBC, BMP, LIPID, [id number], A1C WTH eA, ALB #### [facility] [address] [place] [address] #### CPEP #### [facility] , Chloride [Moles/Vol] 109 mmol/L High 98-107 [facility] Comment on above: Order Comment: Diagn osis: D64.9, I48.0, E11., K Comment: [id number], BLADIMIRZ, RM112, , 01/23/23 Performed By: #### C K, B12, RETIC, CBC, BMP, LIPID, [id number], A1C WTH eA, ALB #### [facility] [address] [place] [address] #### CPEP #### [facility] , CO2 [Moles/Vol] 25.2 mmol/L Normal 21.0-31.0 [facility] Comment on above: Order Comment: Diagn osis: D64.9, I48.0, E11., K.81 Comment: [id number], OGONTZ, RM112, , 01/23/23 Performed By: #### C K, B12, RETIC, CBC, BMP, LIPID, [id number], A1C WTH eA, ALB #### [facility] [address] [place] [address] [place] #### CPEP #### [facility] , Creatinine [Mass/Vol] 0.66 mg/dL Low 0.70-1.30 [facility] Comment on above: Order Comment: Diagn osis: D64.9, I48.0, E11.9, K90.81 Comment: [id number], DECLAN, RM112, , 01/23/23 Performed By: #### C K, B12, RETIC, CBC, BMP, LIPID, [id number], A1C WTH eA, ALB #### [facility] [address] [place] [address] #### CPEP #### [facility] , GFR/1.73 sq M.predicted MDRD (S/P/Bld) [Vol rate/Area] mL/min/{1.73_m2} Normal [facility] Comment on above: Order Comment: Diagn osis: D64.9, I48.0, E11.9, K90. Comment: [id number], DECLAN, RM112, , 01/23/23 Performed By: #### C K, B12, RETIC, CBC, BMP, LIPID, [id number], A1C WTH eA, ALB #### [facility] [address] [place] [address] [place] #### CPEP #### [facility] , Glucose [Mass/Vol] 111 mg/dL High 70-100 [facility] Comment on above: Order Comment: Diagn osis: D64.9, I48.0, E11.9, K Comment: [id number], DECLAN[facility], , 01/23/23 Result Comment: [place] Glucose Reference Range is dependent on time and content of last meal. Glucose of more than 200 mg/dL in a nonstressed, ambulatory subject supports the diagnosis of Diabetes Mellitus. ADA recommended reference range Performed By: #### C K, B12, RETIC, CBC, BMP, LIPID, [id number], A1C WTH eA, ALB #### [facility] [address] [place] [address] [place] #### CPEP #### [facility] , Potassium [Moles/Vol] 4.3 mmol/L Normal 3.5-5.1 [facility] Comment on above: Order Comment: Diagn osis: D64.9, I48.0, E11.9, K90.81 Comment: [id number], OGMIKHAILZ, RM112, HM, 01/23/23 Performed By: #### C K, B12, RETIC, CBC, BMP, LIPID, [id number], A1C WTH eA, ALB #### [facility] [address] [place] [address] [place] #### CPEP #### [facility] , Sodium [Moles/Vol] 137 mmol/L Normal 136-145 [facility] Comment on above: Order Comment: Diagn osis: D64.9, I48.0, E11.9, K90.81 Comment: [id number], OGMIKHAILZ, RM112, HM, 01/23/23 Performed By: #### C K, B12, RETIC, CBC, BMP, LIPID, [id number], A1C WTH eA, ALB #### [place] [address] [place] #### CPEP #### [facility] , Urea nitrogen [Mass/Vol] 16 mg/dL Normal 7-25 [facility] Comment on above: Order Comment: Diagn osis: D64.9, I48.0, E11.9, K90.81 Comment: [id number], BLADIMIRZ, RM112, , 01/23/23 Performed By: #### C K, B12, RETIC, CBC, BMP, LIPID, [id number], A1C WTH eA, ALB #### [facility] [address] [place] [address] [place] #### CPEP #### [facility] , Basophils Auto (Bld) [#/Vol] Ordered By: Adriane Espitia on 01-27-2023 Basophils (Bld) [#/Vol] 0.0 10*3/uL 0.0-0.2 [facility] Basophils/100 WBC Auto (Bld) Ordered By: Adriane Espitia on 01-27-2023 Basophils/100 WBC (Bld) 0.5 % . [facility] C-Peptideon 01-27-2023 C-Peptide 1.4 ng/mL Normal 1.1-4.4 [facility] Comment on above: Order Comment: Diagn osis: E11.9, I10, E46, D64.9 Comment: [id number], DECLAN, RM112, , 02/06/23 Result Comment: C-Pe ptide reference interval is for fasting patients. Performed at: - [facility] [id number] Public Welfare Worker: Silverio Mario PhD, Phone: [phone] PERFORMED BY: [place] [address] PATHOLOGIST HEEL ATTACHER ESTIVEN GENTILE M.D. Performed By: #### A LB, BMP, CBC #### [address] Calcium [Mass/volume] in Ser um or PlasmaOrdered By: Adriane Espitia on 01-27-2023 Calcium [Mass/Vol] 7.8 mg/dL 8.6-10.3 [facility] Carbon dioxide, total [Moles /volume] in Serum or PlasmaOrdered By: Adriane Espitia on 01-27-2023 CO2 [Moles/Vol] 25.2 mmol/L 21.0-31.0 [facility] Chloride [Moles/volume] in S brandi or PlasmaOrdered By: Adriane Espitia on 01-27-2023 Chloride [Moles/Vol] 109 mmol/L 98-107 [facility] Cholesterol [Mass/volume] in Serum or PlasmaOrdered By: Adriane Espitia on 01-27-2023 Cholesterol [Mass/Vol] 72 mg/dL 140-200 [facility] Comment on above: Chol less than 200 m g/dl low riskChol 201-239 mg/dl borderline riskChol 240 mg/dl and greater high risk Cholesterol in LDL Calc [Mas s/Vol]Ordered By: Adriane Espitia on 01-27-2023 Cholesterol in LDL [Mass/Vol] 40 mg/dL 0-100 [facility] Comment on above: LDL ATP III CLASSIFI CATIONLDL less than 100 mg/dL OptimalLDL 100-129 mg/dL Near or above optimalLDL 130-159 mg/dL Borderline highLDL 160-189 mg/dL HighLDL greater than 189 mg/dL Very high Cholesterol in VLDL Calc [Ma ss/Vol]Ordered By: Adriane Espitia on 01-27-2023 Cholesterol in VLDL [Mass/Vol] 10 mg/dL [facility] Complete Blood Count Auto Di ffon 01-27-2023 Basophils (Bld) [#/Vol] 0.0 10*3/uL Normal 0.0-0.2 [facility] Comment on above: Order Comment: Diagn osis: D64.9, I48.0, E11.9, K90. Comment: [id number], OGONTZ, RM112, , 01/23/23 Performed By: #### C K, B12, RETIC, CBC, BMP, LIPID, [id number], A1C WTH eA, ALB #### [address] #### CPEP #### [facility] , Basophils/100 WBC (Bld) 0.5 % Normal . [facility] Comment on above: Order Comment: Diagn osis: D64.9, I48.0, E11., K Comment: [id number], OGONTZ, RM112, , 01/23/23 Performed By: #### C K, B12, RETIC, CBC, BMP, LIPID, [id number], A1C WTH eA, ALB #### [address] #### CPEP #### [facility] , Eosinophils (Bld) [#/Vol] 0.1 10*3/uL Normal 0.0-0.45 [facility] Comment on above: Order Comment: Diagn osis: D64.9, I48.0, E11., K Comment: [id number], OGONTZ, RM112, , 01/23/23 Performed By: #### C K, B12, RETIC, CBC, BMP, LIPID, [id number], A1C WTH eA, ALB #### [facility] [address] [place] [address] [place] #### CPEP #### [facility] , Eosinophils/100 WBC (Bld) 3.7 % Normal . [facility] Comment on above: Order Comment: Diagn osis: D64.9, I48.0, E11.9, K90. Comment: [id number], DECLAN, RM112, , 01/23/23 Performed By: #### C K, B12, RETIC, CBC, BMP, LIPID, [id number], A1C WTH eA, ALB #### [facility] [address] [place] [address] #### CPEP #### [facility] , Erythrocyte distribution width (RBC) [Ratio] 14.7 % Normal 12.0-14.8 [facility] Comment on above: Order Comment: Diagn osis: D64.9, I48.0, E11.9, Comment: [id number], DECLAN, [id number], , 01/23/23 Performed By: #### C K, B12, RETIC, CBC, BMP, LIPID, [id number], A1C WTH eA, ALB #### [address] #### CPEP #### [facility] , Hematocrit (Bld) [Volume fraction] 27.4 % Low 38.8-50.0 [facility] Comment on above: Order Comment: Diagn osis: D64.9, I48.0, E11.9, K. Comment: [id number], DECLAN, RM112, , 01/23/23 Performed By: #### C K, B12, RETIC, CBC, BMP, LIPID, [id number], A1C WTH eA, ALB #### [address] #### CPEP #### [facility] , Hemoglobin (Bld) [Mass/Vol] 9.1 g/dL Low 13.0-17.0 [facility] Comment on above: Order Comment: Diagn osis: D64.9, I48.0, E11.9, K81 Comment: [id number], OGONTZ, RM112, , 01/23/23 Performed By: #### C K, B12, RETIC, CBC, BMP, LIPID, [id number], A1C WTH eA, ALB #### [address] #### CPEP #### [facility] , Lymphocytes (Bld) [#/Vol] 1.1 10*3/uL Normal 1.00-4.8 [facility] Comment on above: Order Comment: Diagn osis: D64.9, I48.0, E11.9, K90.81 Comment: [id number], BLADIMIRZ, RM112, , 01/23/23 Performed By: #### C K, B12, RETIC, CBC, BMP, LIPID, [id number], A1C WTH eA, ALB #### [address] #### CPEP #### [facility] , Lymphocytes/100 WBC (Bld) 27.2 % Normal . [facility] Comment on above: Order Comment: Diagn osis: D64.9, I48.0, E11.9, K90.81 Comment: [id number], DECLAN, RM112, , 01/23/23 Performed By: #### C K, B12, RETIC, CBC, BMP, LIPID, [id number], A1C WTH eA, ALB #### [address] #### CPEP #### [facility] , MCH (RBC) [Entitic mass] 31.7 pg Normal 27.5-35.2 [facility] Comment on above: Order Comment: Diagn osis: D64.9, I48.0, E11.9, K90.81 Comment: [id number], DECLAN, RM112, , 01/23/23 Performed By: #### C K, B12, RETIC, CBC, BMP, LIPID, [id number], A1C WTH eA, ALB #### [address] #### CPEP #### [facility] , MCV (RBC) [Entitic vol] 95.3 fL Normal 83.5-101 [facility] Comment on above: Order Comment: Diagn osis: D64.9, I48.0, E11., Comment: [id number], OGMIKHAILZ, [facility] , 01/[facility]/23 Performed By: #### C K, B12, RETIC, CBC, BMP, LIPID, [id number], A1C WTH eA, ALB #### [facility] [address] [place] [address] #### CPEP #### [facility] , Mean Corpuscular HGB Conc 33.3 g/dL Normal 32.5-35.6 [facility] Comment on above: Order Comment: Diagn osis: D64.9, I48.0, , Comment: [id number], OGMIKHAILZ, [facility], , 01/23/23 Performed By: #### C K, B12, RETIC, CBC, BMP, LIPID, [id number], A1C WTH eA, ALB #### [facility] [address] [place] [address] #### CPEP #### [facility] , Monocytes (Bld) [#/Vol] 0.4 10*3/uL Normal 0.0-0.8 [facility] Comment on above: Order Comment: Diagn osis: D64.9, I48.0, , Comment: [id number], OGONTZ, RM112, , 01/23/23 Performed By: #### C K, B12, RETIC, CBC, BMP, LIPID, [id number], A1C WTH eA, ALB #### [facility] [address] [place] [address] [place] #### CPEP #### [facility] , Monocytes/100 WBC (Bld) 10.1 % Normal . [facility] Comment on above: Order Comment: Diagn osis: D64.9, I48.0, E11.9, Comment: [id number], OGMIKHAILZ, RM112, HM, 01/23/23 Performed By: #### C K, B12, RETIC, CBC, BMP, LIPID, [id number], A1C WTH eA, ALB #### [address] #### CPEP #### [facility] , Neutrophils (Bld) [#/Vol] 2.3 10*3/uL Normal 1.8-7.7 [facility] Comment on above: Order Comment: Diagn osis: D64.9, I48.0, E11., K Comment: [id number], OGMIKHAILZ, RM112, , 01/23/23 Performed By: #### C K, B12, RETIC, CBC, BMP, LIPID, [id number], A1C WTH eA, ALB #### [address] #### CPEP #### [facility] , Neutrophils/100 WBC (Bld) 58.5 % Normal . [facility] Comment on above: Order Comment: Diagn osis: D64.9, I48.0, E11., K Comment: [id number], BLADIMIRZ, RM112, , 01/23/23 Performed By: #### C K, B12, RETIC, CBC, BMP, LIPID, [id number], A1C WTH eA, ALB #### [address] #### CPEP #### [facility] , NRBC% 0.2 /100{WBC} Normal 0-0.5 [facility] Comment on above: Order Comment: Diagn osis: D64.9, I48.0, E11, Comment: [id number], OGONTZ, RM112, , 01/23/23 Performed By: #### C K, B12, RETIC, CBC, BMP, LIPID, [id number], A1C WTH eA, ALB #### [address] [address] [place] #### CPEP #### [facility] , Platelet mean volume (Bld) [Entitic vol] 7.0 fL Normal 6.6-10.1 [facility] Comment on above: Order Comment: Diagn osis: D64.9, I48.0, E11.9, K90.81 Comment: [id number], OGONTZ, RM112, HM, 01/23/23 Performed By: #### C K, B12, RETIC, CBC, BMP, LIPID, [id number], A1C WTH eA, ALB #### [facility] [address] [place] [address] #### CPEP #### [facility] , Platelets (Bld) [#/Vol] 302 10*3/uL Normal 150-450 [facility] Comment on above: Order Comment: Diagn osis: D64.9, I48.0, E11.9, K90.81 Comment: [id number], OGONTZ, RM112, HM, 01/23/23 Performed By: #### C K, B12, RETIC, CBC, BMP, LIPID, [id number], A1C WTH eA, ALB #### [facility] [address] [place] [address] #### CPEP #### [facility] , RBC (Bld) [#/Vol] 2.88 10*6/uL Low 3.90-5.60 [facility] Comment on above: Order Comment: Diagn osis: D64.9, I48.0, E11.9, K90.81 Comment: [id number], OGONTZ, RM112, HM, 01/23/23 Performed By: #### C K, B12, RETIC, CBC, BMP, LIPID, [id number], A1C WTH eA, ALB #### [facility] [address] [place] [address] [place] #### CPEP #### [facility] , WBC (Bld) [#/Vol] 4.0 10*3/uL Low 4.1-10.5 [facility] Comment on above: Order Comment: Diagn osis: D64.9, I48.0, E11.9, K90.81 Comment: [id number], DECLAN, RM112, HM, 01/23/23 Performed By: #### C K, B12, RETIC, CBC, BMP, LIPID, [id number], A1C WTH eA, ALB #### [facility] [address] [place] [address] [place] #### CPEP #### [facility] , Creatine Kinaseon 01-27-2023 CK [Catalytic activity/Vol] 59 U/L Normal [facility] Comment on above: Order Comment: Diagn osis: D64.9, I48.0, E11.9, K90.81 Comment: [id number], DECLAN, RM112, HM, 01/23/23 Result Comment: PERF ORMED BY: [place] [address] PATHOLOGIST HEEL ATTACHER ESTIVEN GENTILE M.D. Performed By: #### C K, B12, RETIC, CBC, BMP, LIPID, [id number], A1C WT eA, ALB #### [facility] [address] [place] [address] #### CPEP #### [facility] , Creatine kinase [Enzymatic a ctivity/volume] in Serum or PlasmaOrdered By: Adriane Espitia on 01-27-2023 CK [Catalytic activity/Vol] 59 U/L [facility] Creatinine [Mass/volume] in Serum or PlasmaOrdered By: Adriane Espitia on 01-27-2023 Creatinine [Mass/Vol] 0.66 mg/dL 0.70-1.30 [facility] Eosinophils Auto (Bld) [#/Vo l]Ordered By: Adriane Espitia on 01-27-2023 Eosinophils (Bld) [#/Vol] 0.1 10*3/uL 0.0-0.45 [facility] Eosinophils/100 WBC Auto (Bl d)Ordered By: Adriane Espitia on 01-27-2023 Eosinophils/100 WBC (Bld) 3.7 % . [facility] Erythrocyte distribution wid th Auto (RBC) [Ratio]Ordered By: Adriane Espitia on 01-27-2023 Erythrocyte distribution width (RBC) [Ratio] 14.7 % 12.0-14.8 [facility] Glucose [Mass/volume] in Ser um or PlasmaOrdered By: Adriane Espitia on 01-27-2023 Glucose [Mass/Vol] 111 mg/dL 70-100 [facility] Comment on above: ADA recommended refe [...] from glycated hemoglobin (Bld) [Mass/Vol] 151 mg/dL [facility] Hematocrit Auto (Bld) [Volum e fraction]Ordered By: Adriane Espitia on 01-27-2023 Hematocrit (Bld) [Volume fraction] 27.4 % 38.8-50.0 [facility] Hemoglobin A1c percentageOrd ered By: Adriane Espitia on 01-27-2023 HbA1c (Bld) [Mass fraction] 6.9 % 4.3-5.6 [facility] Comment on above: Increased risk for d iabetes: 5.7 - 6.4diabetes: >6.4glycemic control for adults with diabetes: <7.0 Hemoglobin [Mass/volume] in BloodOrdered By: Adriane Espitia on 01-27-2023 Hemoglobin (Bld) [Mass/Vol] 9.1 g/dL 13.0-17.0 [facility] Leukocytes [#/volume] correc missael for nucleated erythrocytes in Blood by Automated counOrdered By: Adriane Espitia on 01-27-2023 WBC corrected for nucl RBC Auto (Bld) [#/Vol] 4.0 10*3/uL 4.1-10.5 [facility] Lipid Panelon 01-27-2023 Cholesterol [Mass/Vol] 72 mg/dL Low 140-200 [facility] Comment on above: Order Comment: Diagn osis: D64.9, I48.0, E11, Comment: [id number], DECLAN, [facility], , 01/23/23 Result Comment: Chol less than 200 mg/dl low risk Chol 201-239 mg/dl borderline risk Chol 240 mg/dl and greater high risk Performed By: #### C K, B12, RETIC, CBC, BMP, LIPID, [id number], A1C WTH eA, ALB #### [facility] [address] [place] [address] #### CPEP #### [facility] , Cholesterol in HDL [Mass/Vol] 22 mg/dL Low 23-92 [facility] Comment on above: Order Comment: Diagn osis: D64.9, I48.0, , Comment: [id number], DECLAN, [facility], , 01/23/23 Result Comment: HDL CHOL ATP-III CLASSIFICATION Cardiovascular Risk HDL > or equal to 60 mg/dL LOW HDL < 40 mg/dL HIGH Performed By: #### C K, B12, RETIC, CBC, BMP, LIPID, [id number], A1C WTH eA, ALB #### [facility] [address] [place] [address] #### CPEP #### [facility] , Cholesterol.total/Cho lesterol in HDL [Mass ratio] 3.3 {ratio} Normal <5.0 [facility] Comment on above: Order Comment: Diagn osis: D64.9, I48.0, E11, Comment: [id number], DECLAN, [facility], , 01/23/23 Performed By: #### C K, B12, RETIC, CBC, BMP, LIPID, [id number], A1C WTH eA, ALB #### [facility] [address] [place] [address] [place] #### CPEP #### [facility] , LDL Cholesterol,Calculate d 40 mg/dL Normal 0-100 [facility] Comment on above: Order Comment: Diagn osis: D64.9, I48.0, E11, K90.81 Comment: [id number], DECLAN, RM112, , 01/23/23 Result Comment: LDL ATP III CLASSIFICATION LDL less than 100 mg/dL Optimal LDL 100-129 mg/dL Near or above optimal LDL 130-159 mg/dL Borderline high LDL 160-189 mg/dL High LDL greater than 189 mg/dL Very high Performed By: #### C K, B12, RETIC, CBC, BMP, LIPID, [id number], A1C WTH eA, ALB #### [address] #### CPEP #### [facility] , Triglyceride w/Reflex 52 mg/dL Normal 0-149 [facility] Comment on above: Order Comment: Diagn osis: D64.9, I48.0, E11.9, K9081 Comment: [id number], DECLAN, RM112, , 01/23/23 Result Comment: TRIG ATP III CLASSIFICATION TRIG less than 150 mg/dL Normal TRIG 150-199 mg/dL Borderline high TRIG 200-500 mg/dL High TRIG greater than 500 mg/dL Very high Standard traceable to the Center for Disease Conrtrol and Prevention (CDC) test method. Performed By: #### C K, B12, RETIC, CBC, BMP, LIPID, [id number], A1C WTH eA, ALB #### [address] #### CPEP #### [facility] , VLDL CHOLESTEROL 10 mg/dL Normal [facility] Comment on above: Order Comment: Diagn osis: D64.9, I48.0, E11.9, K90.81 Comment: [id number], DECLAN, RM112, , 01/23/23 Performed By: #### C K, B12, RETIC, CBC, BMP, LIPID, [id number], A1C WTH eA, ALB #### [address] #### CPEP #### [facility] , Lymphocytes Auto (Bld) [#/Vo l]Ordered By: Adriane Espitia on 01-27-2023 Lymphocytes (Bld) [#/Vol] 1.1 10*3/uL 1.00-4.8 [facility] Lymphocytes/100 WBC Auto (Bl d)Ordered By: Adriane Espitia on 01-27-2023 Lymphocytes/100 WBC (Bld) 27.2 % . [facility] MCH Auto (RBC) [Entitic mass ]Ordered By: Adriane Espitia on 01-27-2023 MCH (RBC) [Entitic mass] 31.7 pg 27.5-35.2 [facility] MCHC Auto (RBC) [Mass/Vol]Or dered By: Adriane Espitia on 01-27-2023 MCHC (RBC) [Mass/Vol] 33.3 g/dL 32.5-35.6 [facility] MCV Auto (RBC) [Entitic vol] Ordered By: Adriane Espitia on 01-27-2023 MCV (RBC) [Entitic vol] 95.3 fL 83.5-101 [facility] Monocytes Auto (Bld) [#/Vol] Ordered By: Adriane Espitia on 01-27-2023 Monocytes (Bld) [#/Vol] 0.4 10*3/uL 0.0-0.8 [facility] Monocytes/100 WBC Auto (Bld) Ordered By: Adriane Espitia on 01-27-2023 Monocytes/100 WBC (Bld) 10.1 % . [facility] Neutrophils Auto (Bld) [#/Vo l]Ordered By: Adriane Espitia on 01-27-2023 Neutrophils (Bld) [#/Vol] 2.3 10*3/uL 1.8-7.7 [facility] Neutrophils/100 WBC Auto (Bl d)Ordered By: Adriane Espitia on 01-27-2023 Neutrophils/100 WBC (Bld) 58.5 % . [facility] No Panel InformationOrdered By: Adriane Espitia on 01-27-2023 C-Peptide 1.4 ng/mL 1.1-4.4 [facility] Comment on above: C-Peptide reference interval is for fasting patients.Performed at: - [address] [id number] Director: Silverio Mario PhD, Phone: [phone] Estimated GFR (CKD-EPI) > 60.0 mL/Min [facility] Creatinine Clearance (Chem N/A [facility] Nucleated erythrocytes [Pres ence] in Blood by Automated countOrdered By: Adriane Espitia on 01-27-2023 Nucleated RBC Auto Ql (Bld) 0.2 /100{WBC} 0-0.5 [facility] Platelet mean volume Auto (B ld) [Entitic vol]Ordered By: Adriane Espitia on 01-27-2023 Platelet mean volume (Bld) [Entitic vol] 7.0 fL 6.6-10.1 [facility] Platelets Auto (Bld) [#/Vol] Ordered By: Adriane Espitia on 01-27-2023 Platelets (Bld) [#/Vol] 302 10*3/uL 150-450 [facility] Potassium [Moles/volume] in Serum or PlasmaOrdered By: Adriane Espitia on 01-27-2023 Potassium [Moles/Vol] 4.3 mmol/L 3.5-5.1 [facility] RBC Auto (Bld) [#/Vol]Ordere d By: Adriane Espitia on 01-27-2023 RBC (Bld) [#/Vol] 2.88 10*6/uL 3.90-5.60 [facility] Reticulocyte Counton 023 Reticulocyte Number 0.035 10*6/uL Normal 0.024-0 .08 4 [facility] Comment on above: Order Comment: Diagn osis: D64.9, I48.0, E11.9, K90.81 Comment: [id number], DECLAN, RM112, , 01/23/23 Result Comment: PERF ORMED BY: [place] [address] PATHOLOGIST HEEL ATTACHER ESTIVEN GENTILE M.D. Performed By: #### C K, B12, RETIC, CBC, BMP, LIPID, [id number], A1C WTH eA, ALB #### [facility] [address] [place] [address] [place] #### CPEP #### [facility] , Reticulocyte Percent 1.2 % Normal 0.5-1.5 [facility] Comment on above: Order Comment: Diagn osis: D64.9, I48.0, E11.9, K90.81 Comment: [id number], DECLAN, RM112, , 01/23/23 Performed By: #### C K, B12, RETIC, CBC, BMP, LIPID, [id number], A1C WTH eA, ALB #### [facility] [address] #### CPEP #### [facility] , Reticulocytes/100 RBC Auto ( Bld)Ordered By: Adriane Espitia on 01-27-2023 Reticulocytes/100 RBC (Bld) 1.2 % 0.5-1.5 [facility] Serum or plasma anion gap de terminationOrdered By: Adriane Espitia on 01-27-2023 Anion gap [Moles/Vol] 7.1 mmol/L 6.0-15.0 [facility] Serum or plasma high density lipoprotein (HDL) cholesterol measurementOrdered By: Adriane Espitia on 01-27-2023 Cholesterol in HDL [Mass/Vol] 22 mg/dL 23-92 [facility] Comment on above: HDL CHOL ATP-III CLA SSIFICATION Cardiovascular RiskHDL > or equal to 60 mg/dL LOWHDL < 40 mg/dL HIGH Serum or plasma total choles terol/high density lipoprotein (HDL) cholesterol mass ratOrdered By: Adriane Espitia on 01-27-2023 Cholesterol.total/Cho lesterol in HDL [Mass ratio] 3.3 {ratio} <5.0 [facility] Sodium [Moles/volume] in Ser um or PlasmaOrdered By: Adriane Espitia on 01-27-2023 Sodium [Moles/Vol] 137 mmol/L 136-145 [facility] Triglyceride [Mass/volume] i n Serum or PlasmaOrdered By: Adriane Espitia on 01-27-2023 Triglyceride [Mass/Vol] 52 mg/dL 0-149 [facility] Comment on above: TRIG ATP III CLASSIF ICATIONTRIG less than 150 mg/dL NormalTRIG 150-199 mg/dL Borderline highTRIG 200-500 mg/dL High TRIG greater than 500 mg/dL Very highStandard traceable to the Center for Disease Conrtrol and Prevention (CDC) test method. Urea nitrogen [Mass/volume] in Serum or PlasmaOrdered By: Adriane Espitia on 01-27-2023 Urea nitrogen [Mass/Vol] 16 mg/dL 7-25 [facility] Vitamin B12on 01-27-2023 Cobalamin (Vitamin B12) [Mass/Vol] 498 pg/mL Normal 180-914 [facility] Comment on above: Order Comment: Diagn osis: E11.9, I10, E46, D64.9 Comment: [id number], DECLAN, ALYSSIA, , 02/06/23 Performed By: #### A VIPIN HIGGINBOTHAM, CBC #### [facility] [address] Vitamin B12 ser/plasOrdered By: Adriane Espitia on 01-27-2023 Cobalamin (Vitamin B12) [Mass/Vol] 498 pg/mL 180-914 [facility] Vitamin D 25 Hydroxy Totalon 01-27-2023 Vitamin D 25 Hydroxy Total < 7.0 Low 30-100 [facility] Comment on above: Order Comment: Diagn osis: E11.9, I10, E46, D64.9 Comment: [id number], [facility], , 02/06/23 Result Comment: TAYLER MIN D STATUS 25(OH)VITAMIN D RANGE (ng/mL) Deficient <20 Insufficient 20 to <30 Sufficient 30 to 100 Reference: Janny MF,Carmen NC, Brant CAMPUZANO, et al. Evaluation,treatment, and prevention of vitamin D deficiency; an Endocrine Society clinical practice guideline. JCEM. 2010; 96(7):1911-30. PERFORMED BY: [place] [address] PATHOLOGIST HEEL ATTACHER ESTIVEN GENTILE M.D. Performed By: #### A ANAHY, BMP, CBC #### [facility] [address] [id number] [facility] Vitamin D+Metabolites [Mass/ volume] in Serum or PlasmaOrdered By: Adriane Espitia on 01-27-2023 Vitamin D+Metabolites [Mass/Vol] < 7.0 ng/mL 30-100 [facility] Comment on above: VITAMIN D STATUS 25( [place])VITAMIN D RANGE (ng/mL) Deficient <20 Insufficient 20 to <30Sufficient 30 to 100Reference: Janny GEE,Carmen LACEY, Brant CAMPUZANO, et al. Evaluation,treatment, and prevention of vitamin D deficiency; an Endocrine Society clinical practice guideline. JCEM. 2010; 96(7):1911-30. WBC Auto (Bld) [#/Vol]Ordere d By: Adriane Espitia on 01-27-2023 WBC (Bld) [#/Vol] 4.0 10*3/uL 4.1-10.5 [facility] CNPNon 01-21-2023 CNPN Normal [facility] CNPNon 01-13-2023 CNPN Normal [facility] CNNURSEon 12-26-2022 CNNURSE Normal [facility] CBC W Auto Differential pane l (Bld)on 11-28-2022 Basophils (Bld) [#/Vol] 10*3/uL Normal <0.11 [facility] Comment on above: Order Comment: Speci men Type: BLOOD SPECIMENOrdering Facility: [facility] Address: [address] [address] Performed By: #### 5 7021-8 ####[facility] LABCLIA [id number] [place] [address] Basophils/100 WBC (Bld) 0.2 % Normal [facility] Comment on above: Order Comment: Speci men Type: BLOOD SPECIMENOrdering Facility: [facility] Address: [address] [address] Performed By: #### 5 7021-8 ####[facility] LABCLIA [id number] [place] [address] Differential cell count method Nom (Bld) Auto Normal [facility] Comment on above: Order Comment: Speci men Type: BLOOD SPECIMENOrdering Facility: [facility] Address: [address] [address] Performed By: #### 5 7021-8 ####[facility] LABCLIA [id number] [place] [address] Eosinophils (Bld) [#/Vol] 0.07 10*3/uL Normal <0.46 [facility] Comment on above: Order Comment: Speci men Type: BLOOD SPECIMENOrdering Facility: [facility] Address: [address] [place] [address] Performed By: #### 5 7021-8 ####[facility] LABCLIA [id number] [place] [address] Eosinophils/100 WBC (Bld) 1.7 % Normal [facility] Comment on above: Order Comment: Speci men Type: BLOOD SPECIMENOrdering Facility: [facility] Address: [address] [place] [address] Performed By: #### 5 7021-8 ####[facility] LABCLIA [id number] [place] [address] Erythrocyte distribution width (RBC) [Ratio] 13.6 % Normal 11.5-15.0 [facility] Comment on above: Order Comment: Speci men Type: BLOOD SPECIMENOrdering Facility: [facility] Address: [address] [place] [address] Performed By: #### 5 7021-8 ####[facility] LABCLIA [id number] [place] [address] Hematocrit (Bld) [Volume fraction] 31.8 % Low 39.0-51.0 [facility] Comment on above: Order Comment: Speci men Type: BLOOD SPECIMENOrdering Facility: [facility] Address: [address] [place] [address] Performed By: #### 5 7021-8 ####[facility] LABCLIA [id number] [place] [address] Hemoglobin (Bld) [Mass/Vol] 10.2 g/dL Low 13.0-17.0 [facility] Comment on above: Order Comment: Speci men Type: BLOOD SPECIMENOrdering Facility: [facility] Address: [address] [address] Performed By: #### 5 7021-8 ####[facility] LABCLIA [id number] [place] [address] Immature granulocytes (Bld) [#/Vol] 10*3/uL Normal <0.10 [facility] Comment on above: Order Comment: Speci men Type: BLOOD SPECIMENOrdering Facility: [facility] Address: [address] [address] Performed By: #### 5 7021-8 ####[facility] LABCLIA [id number] [place] [address] Immature granulocytes/100 WBC (Bld) 0.5 % Normal [facility] Comment on above: Order Comment: Speci men Type: BLOOD SPECIMENOrdering Facility: [facility] Address: [address] [address] Performed By: #### 5 7021-8 ####[facility] LABCLIA [id number] [place] [address] Lymphocytes (Bld) [#/Vol] 1.17 10*3/uL Normal 1.00-4.00 [facility] Comment on above: Order Comment: Speci men Type: BLOOD SPECIMENOrdering Facility: [facility] Address: [address] [address] Performed By: #### 5 7021-8 ####[facility] LABCLIA [id number] [place] [address] Lymphocytes/100 WBC (Bld) 28.3 % Normal [facility] Comment on above: Order Comment: Speci men Type: BLOOD SPECIMENOrdering Facility: [facility] Address: [address] [place] [address] Performed By: #### 5 7021-8 ####[facility] LABCLIA [id number] [place] [address] MCH (RBC) [Entitic mass] 30.0 pg Normal 26.0-34.0 [facility] Comment on above: Order Comment: Speci men Type: BLOOD SPECIMENOrdering Facility: [facility] Address: [address] [place] [address] Performed By: #### 5 7021-8 ####[facility] LABIA [id number] [place] [address] MCHC (RBC) [Mass/Vol] 32.1 g/dL Normal 30.5-36.0 [facility] Comment on above: Order Comment: Speci men Type: BLOOD SPECIMENOrdering Facility: [facility] Address: [address] [place] [address] Performed By: #### 5 7021-8 ####[facility]IA [id number] [place] [address] MCV (RBC) [Entitic vol] 93.5 fL Normal 80.0-100.0 [facility] Comment on above: Order Comment: Speci men Type: BLOOD SPECIMENOrdering Facility: [facility] Address: [address] [place] [address] Performed By: #### 5 7021-8 ####[facility]IA [id number] [place] [address] Monocytes (Bld) [#/Vol] 0.38 10*3/uL Normal <0.87 [facility] Comment on above: Order Comment: Speci men Type: BLOOD SPECIMENOrdering Facility: [facility] Address: [address] [place], [place] [address] Performed By: #### 5 7021-8 ####[facility] LABIA [id number] [place] [address] Monocytes/100 WBC (Bld) 9.2 % Normal [facility] Comment on above: Order Comment: Speci men Type: BLOOD SPECIMENOrdering Facility: [facility] Address: [address] [address] Performed By: #### 5 7021-8 ####[facility] LABCLIA [id number] [place] [address] Neutrophils (Bld) [#/Vol] 2.49 10*3/uL Normal 1.45-7.50 [facility] Comment on above: Order Comment: Speci men Type: BLOOD SPECIMENOrdering Facility: [facility] Address: [address] [address] Performed By: #### 5 7021-8 ####[facility] LABCLIA [id number] [place] [address] Neutrophils/100 WBC (Bld) 60.1 % Normal [facility] Comment on above: Order Comment: Speci men Type: BLOOD SPECIMENOrdering Facility: [facility] Address: [address] [place] [address] Performed By: #### 5 7021-8 ####[facility] LABCLIA [id number] [place] [address] Nucleated RBC (Bld) [#/Vol] 10*3/uL Normal <0.01 [facility] Comment on above: Order Comment: Speci men Type: BLOOD SPECIMENOrdering Facility: [facility] Address: [address] [place] [address] Performed By: #### 5 7021-8 ####[facility] LABCLIA [id number] [place] [address] Nucleated RBC/100 WBC (Bld) [Ratio] 0.0 /100 WBC Normal [facility] Comment on above: Order Comment: Speci men Type: BLOOD SPECIMENOrdering Facility: [facility] Address: [address] [place] [address] Performed By: #### 5 7021-8 ####[facility] LABCLIA [id number] [place] [address] Platelet mean volume (Bld) [Entitic vol] 9.3 fL Normal 9.0-12.7 [facility] Comment on above: Order Comment: Speci men Type: BLOOD SPECIMENOrdering Facility: [facility] Address: [address] [place] [address] Performed By: #### 5 7021-8 ####[facility] LABCLIA [id number] [place] [address] Platelets (Bld) [#/Vol] 316 10*3/uL Normal 150-400 [facility] Comment on above: Order Comment: Speci men Type: BLOOD SPECIMENOrdering Facility: [facility] Address: [address] [place] [address] Performed By: #### 5 7021-8 ####[facility] LABIA [id number] [place] [address] RBC (Bld) [#/Vol] 3.40 10*6/uL Low 4.20-6.00 [facility] Comment on above: Order Comment: Speci men Type: BLOOD SPECIMENOrdering Facility: [facility] Address: [address] [place] [address] Performed By: #### 5 7021-8 ####[facility] LABCLIA [id number] [place] [address] WBC (Bld) [#/Vol] 4.14 10*3/uL Normal 3.70-11.00 [facility] Comment on above: Order Comment: Speci men Type: BLOOD SPECIMENOrdering Facility: [facility] Address: [address] [place] [address] Performed By: #### 5 7021-8 ####[facility] LABIA [id number] [place] [address] CNNURSEon 11-28-2022 CNNURSE Normal [facility] CNOVSPon 11-28-2022 CNOVSP Normal [facility] metabolic 2000 panelon 11-28-2022 Albumin [Mass/Vol] 3.6 g/dL Low 3.9-4.9 [facility] Comment on above: Order Comment: Speci men Type: BLOOD SPECIMENOrdering Facility: [facility] Address: [address] [place] [address] Performed By: #### 2 4323-8 ####[facility] LABCLIA [id number] [place] [address] ALP [Catalytic activity/Vol] 143 U/L High 38-113 [facility] Comment on above: Order Comment: Speci men Type: BLOOD SPECIMENOrdering Facility: [facility] Address: [address] [place] [address] Performed By: #### 2 4323-8 ####[facility] LABCLIA [id number] [place] [address] ALT [Catalytic activity/Vol] 25 U/L Normal 10-54 [facility] Comment on above: Order Comment: Speci men Type: BLOOD SPECIMENOrdering Facility: [facility] Address: [address] [place] [address] Performed By: #### 2 4323-8 ####[facility] LABCLIA [id number] [place] [address] Anion gap [Moles/Vol] 10 mmol/L Normal 9-18 [facility] Comment on above: Order Comment: Speci men Type: BLOOD SPECIMENOrdering Facility: [facility] Address: [address] [place] [address] Performed By: #### 2 4323-8 ####[facility] LABCLIA [id number] [place] [address] AST [Catalytic activity/Vol] 15 U/L Normal 14-40 [facility] Comment on above: Order Comment: Speci men Type: BLOOD SPECIMENOrdering Facility: [facility] Address: [address] [place] [address] Performed By: #### 2 4323-8 ####[facility] LABCLIA [id number] [place] [address] Bilirubin [Mass/Vol] 0.2 mg/dL Normal 0.2-1.3 [facility] Comment on above: Order Comment: Speci men Type: BLOOD SPECIMENOrdering Facility: [facility] Address: [address] [place] [address] Performed By: #### 2 4323-8 ####[facility] LABCLIA [id number] [place] [address] Calcium [Mass/Vol] 9.4 mg/dL Normal 8.5-10.2 [facility] Comment on above: Order Comment: Speci men Type: BLOOD SPECIMENOrdering Facility: [facility] Address: [address] [place] [address] Performed By: #### 2 4323-8 ####[facility] LABCLIA [id number] [place] [address] Chloride [Moles/Vol] 103 mmol/L Normal 97-105 [facility] Comment on above: Order Comment: Speci men Type: BLOOD SPECIMENOrdering Facility: [facility] Address: [address] [place] [address] Performed By: #### 2 4323-8 ####[facility] LABCLIA [id number] [place] [address] CO2 [Moles/Vol] 19 mmol/L Low 22-30 [facility] Comment on above: Order Comment: Speci men Type: BLOOD SPECIMENOrdering Facility: [facility] Address: [address] [place] [address] Performed By: #### 2 4323-8 ####[facility] LABCLIA [id number] [place] [address] Creatinine [Mass/Vol] 0.90 mg/dL Normal 0.73-1.22 [facility] Comment on above: Order Comment: Speci men Type: BLOOD SPECIMENOrdering Facility: [facility] Address: [address] [place] [address] Performed By: #### 2 4323-8 ####[facility] LABCLIA [id number] [place] [address] ESTIMATED GLOMERULAR FILTRATION RATE 95 mL/min/1.73m??? Normal >=60 [facility] Comment on above: Order Comment: Frank real Type: BLOOD SPECIMENOrdering Facility: [facility] Address: [address] [place] [address] Result Comment: Megan mated Glomerular Filtration Rate [...] actual GFR. Performed By: #### 2 4323-8 ####[facility] LABCLIA [id number] [place] [address] Glucose [Mass/Vol] 422 mg/dL High 74-99 [facility] Comment on above: Order Comment: Frank real Type: BLOOD SPECIMENOrdering Facility: [facility] Address: [address] [place] [address] Result Comment: The [place] [employer] (ADA) provides guidance for cutoff [...] Standards of Medical Care in Diabetes 2016, [place] [employer]. Diabetes Care. 2016.39(Suppl 1). Performed By: #### 2 4323-8 ####[facility] LABCLIA [id number] [place] [address] Potassium [Moles/Vol] 4.7 mmol/L Normal 3.7-5.1 [facility] Comment on above: Order Comment: Speci men Type: BLOOD SPECIMENOrdering Facility: [facility] Address: [address] [place] [address] Performed By: #### 2 4323-8 ####[facility] LABCLIA [id number] [place] [address] Protein [Mass/Vol] 7.0 g/dL Normal 6.3-8.0 [facility] Comment on above: Order Comment: Speci men Type: BLOOD SPECIMENOrdering Facility: [facility] Address: [address] [place] [address] Performed By: #### 2 4323-8 ####[facility] LABIA [id number] [place] [address] Sodium [Moles/Vol] 132 mmol/L Low 136-144 [facility] Comment on above: Order Comment: Speci men Type: BLOOD SPECIMENOrdering Facility: [facility] Address: [address] [place] [address] Performed By: #### 2 4323-8 ####[facility] LABIA [id number] [place] [address] Urea nitrogen [Mass/Vol] 30 mg/dL High 9-24 [facility] Comment on above: Order Comment: Speci men Type: BLOOD SPECIMENOrdering Facility: [facility] Address: [address] [place] [address] Performed By: #### 2 4323-8 ####[facility] LABIA [id number] [place] [address] Ferritin SerPl-mCncon 2022 Ferritin [Mass/Vol] 336.0 ng/mL Normal 30.3-565.7 [facility] Comment on above: Order Comment: Speci men Type: BLOOD SPECIMENOrdering Facility: [facility] Address: [address] [place] [address] Performed By: #### 5 0190-8, 2132-02, 2275-09, 2284-01 ####[facility] LABCLIA [id number] [place] [address] [place] Folate SerPl-mCncon 11-29-19 Folate [Mass/Vol] 11.2 ng/mL Normal >4.[address] [facility] Comment on above: Order Comment: Speci men Type: BLOOD SPECIMENOrdering Facility: [facility] Address: [address] [place] [address] Performed By: #### 5 0190-8, 2132-02, 2275-09, 2284-01 ####[facility] LABCLIA [id number] [place] [address] [place] Iron and Iron binding capaci ty panelon 11-28-2022 Iron [Mass/Vol] 37 ug/dL Low 41-186 [facility] Comment on above: Order Comment: Speci men Type: BLOOD SPECIMENOrdering Facility: [facility] Address: [address] [place] [address] Performed By: #### 5 0190-8, 2132-02, 2275-09, 2284-01 ####[facility] LABCLIA [id number] [place] [address] [place] Iron binding capacity [Mass/Vol] 220 ug/dL Low 232-386 [facility] Comment on above: Order Comment: Speci men Type: BLOOD SPECIMENOrdering Facility: [facility] Address: [address] [place] [address] Performed By: #### 5 0190-8, 9, 2275-09, 2284-01 ####[facility] LABCLIA [id number] [place] [address] [place] Iron/TIBC [Molar ratio] 16.8 % Normal 15.0-57.0 [facility] Comment on above: Order Comment: Speci men Type: BLOOD SPECIMENOrdering Facility: [facility] Address: [address] [place], [place] [address] Performed By: #### 5 0190-8, 9, 4, 2284-01 ####[facility] LABCLIA [id number] [place] [address] [place] Vit B12 [facility] Cobalamin (Vitamin B12) [Mass/Vol] 868 pg/mL Normal 232-1245 [facility] Comment on above: Order Comment: Speci men Type: BLOOD SPECIMENOrdering Facility: [facility] Address: [address] [place] [address] Performed By: #### 5 0190-8, 2132-02, 2275-09, 2284-01 ####[facility] LABCLIA [id number] [place] [address] [place] CNNURSEon 10-31-2022 CNNURSE Normal [facility] CBC W Auto Differential pane l (Bld)on 10-03-2022 Basophils (Bld) [#/Vol] 10*3/uL Normal <0.11 [facility] Comment on above: Order Comment: Speci men Type: BLOOD SPECIMENOrdering Facility: [facility] Address: [address] [place], [place] [address] Performed By: #### 5 7021-8 ####[facility] LABCLIA [id number] [place] [address] Basophils/100 WBC (Bld) 0.2 % Normal [facility] Comment on above: Order Comment: Speci men Type: BLOOD SPECIMENOrdering Facility: [facility] Address: [address] [place], [place] [address] Performed By: #### 5 7021-8 ####[facility] LABCLIA [id number] [place] [address] Differential cell count method Nom (Bld) Auto Normal [facility] Comment on above: Order Comment: Speci men Type: BLOOD SPECIMENOrdering Facility: [facility] Address: [address] [place] [address] Performed By: #### 5 7021-8 ####[facility] LABCLIA [id number] [place] [address] Eosinophils (Bld) [#/Vol] 0.11 10*3/uL Normal <0.46 [facility] Comment on above: Order Comment: Speci men Type: BLOOD SPECIMENOrdering Facility: [facility] Address: [address] [place] [address] Performed By: #### 5 7021-8 ####[facility] LABCLIA [id number] [place] [address] Eosinophils/100 WBC (Bld) 2.2 % Normal [facility] Comment on above: Order Comment: Speci men Type: BLOOD SPECIMENOrdering Facility: [facility] Address: [address] [place] [address] Performed By: #### 5 7021-8 ####[facility] LABCLIA [id number] [place] [address] Erythrocyte distribution width (RBC) [Ratio] 12.7 % Normal 11.5-15.0 [facility] Comment on above: Order Comment: Speci men Type: BLOOD SPECIMENOrdering Facility: [facility] Address: [address] [place] [address] Performed By: #### 5 7021-8 ####[facility] LABCLIA [id number] [place] [address] Hematocrit (Bld) [Volume fraction] 32.1 % Low 39.0-51.0 [facility] Comment on above: Order Comment: Speci men Type: BLOOD SPECIMENOrdering Facility: [facility] Address: [address] [place] [address] Performed By: #### 5 7021-8 ####[facility] LABCLIA [id number] [place] [address] Hemoglobin (Bld) [Mass/Vol] 10.2 g/dL Low 13.0-17.0 [facility] Comment on above: Order Comment: Speci men Type: BLOOD SPECIMENOrdering Facility: [facility] Address: [address] [place] [address] Performed By: #### 5 7021-8 ####[facility] LABCLIA [id number] [place] [address] Immature granulocytes (Bld) [#/Vol] 10*3/uL Normal <0.10 [facility] Comment on above: Order Comment: Speci men Type: BLOOD SPECIMENOrdering Facility: [facility] Address: [address] [place] [address] Performed By: #### 5 7021-8 ####[facility] LABCLIA [id number] [place] [address] Immature granulocytes/100 WBC (Bld) 0.2 % Normal [facility] Comment on above: Order Comment: Speci men Type: BLOOD SPECIMENOrdering Facility: [facility] Address: [address] [place] [address] Performed By: #### 5 7021-8 ####[facility] LABCLIA [id number] [place] [address] Lymphocytes (Bld) [#/Vol] 1.37 10*3/uL Normal 1.00-4.00 [facility] Comment on above: Order Comment: Speci men Type: BLOOD SPECIMENOrdering Facility: [facility] Address: [address] [place] [address] Performed By: #### 5 7021-8 ####[facility] LABCLIA [id number] [place] [address] Lymphocytes/100 WBC (Bld) 26.9 % Normal [facility] Comment on above: Order Comment: Speci men Type: BLOOD SPECIMENOrdering Facility: [facility] Address: [address] [address] Performed By: #### 5 7021-8 ####[facility] LABCLIA [id number] [place] [address] MCH (RBC) [Entitic mass] 29.7 pg Normal 26.0-34.0 [facility] Comment on above: Order Comment: Speci men Type: BLOOD SPECIMENOrdering Facility: [facility] Address: [address] [place] [address] Performed By: #### 5 7021-8 ####[facility] LABCLIA [id number] [place] [address] MCHC (RBC) [Mass/Vol] 31.8 g/dL Normal 30.5-36.0 [facility] Comment on above: Order Comment: Speci men Type: BLOOD SPECIMENOrdering Facility: [facility] Address: [address] [address] Performed By: #### 5 7021-8 ####[facility] LABIA [id number] [place] [address] MCV (RBC) [Entitic vol] 93.3 fL Normal 80.0-100.0 [facility] Comment on above: Order Comment: Speci men Type: BLOOD SPECIMENOrdering Facility: [facility] Address: [address] [place] [address] Performed By: #### 5 7021-8 ####[facility] LABIA [id number] [place] [address] Monocytes (Bld) [#/Vol] 0.39 10*3/uL Normal <0.87 [facility] Comment on above: Order Comment: Speci men Type: BLOOD SPECIMENOrdering Facility: [facility] Address: [address] [place] [address] Performed By: #### 5 7021-8 ####[facility] LABCLIA [id number] [place] [address] Monocytes/100 WBC (Bld) 7.6 % Normal [facility] Comment on above: Order Comment: Speci men Type: BLOOD SPECIMENOrdering Facility: [facility] Address: [address] [place] [address] Performed By: #### 5 7021-8 ####[facility] LABCLIA [id number] [place] [address] Neutrophils (Bld) [#/Vol] 3.21 10*3/uL Normal 1.45-7.50 [facility] Comment on above: Order Comment: Speci men Type: BLOOD SPECIMENOrdering Facility: [facility] Address: [address] [place] [address] Performed By: #### 5 7021-8 ####[facility] LABCLIA [id number] [place] [address] Neutrophils/100 WBC (Bld) 62.9 % Normal [facility] Comment on above: Order Comment: Speci men Type: BLOOD SPECIMENOrdering Facility: [facility] Address: [address] [place] [address] Performed By: #### 5 7021-8 ####[facility] LABCLIA [id number] [place] [address] Nucleated RBC (Bld) [#/Vol] 10*3/uL Normal <0.01 [facility] Comment on above: Order Comment: Speci men Type: BLOOD SPECIMENOrdering Facility: [facility] Address: [address] [place] [address] Performed By: #### 5 7021-8 ####[facility] LABCLIA [id number] [place] [address] Nucleated RBC/100 WBC (Bld) [Ratio] 0.0 /100 WBC Normal [facility] Comment on above: Order Comment: Speci men Type: BLOOD SPECIMENOrdering Facility: [facility] Address: [address] [place] [address] Performed By: #### 5 7021-8 ####[facility] LABIA [id number] [place] [address] Platelet mean volume (Bld) [Entitic vol] 9.1 fL Normal 9.0-12.7 [facility] Comment on above: Order Comment: Speci men Type: BLOOD SPECIMENOrdering Facility: [facility] Address: [address] [place] [address] Performed By: #### 5 7021-8 ####[facility] LABCLIA [id number] [place] [address] Platelets (Bld) [#/Vol] 267 10*3/uL Normal 150-400 [facility] Comment on above: Order Comment: Speci men Type: BLOOD SPECIMENOrdering Facility: [facility] Address: [address] [place] [address] Performed By: #### 5 7021-8 ####[facility] LABCLIA [id number] [place] [address] RBC (Bld) [#/Vol] 3.44 10*6/uL Low 4.20-6.00 [facility] Comment on above: Order Comment: Speci men Type: BLOOD SPECIMENOrdering Facility: [facility] Address: [address] [place] [address] Performed By: #### 5 7021-8 ####[facility] LABCLIA [id number] [place] [address] WBC (Bld) [#/Vol] 5.10 10*3/uL Normal 3.70-11.00 [facility] Comment on above: Order Comment: Speci men Type: BLOOD SPECIMENOrdering Facility: [facility] Address: [address] [place] [address] Performed By: #### 5 7021-8 ####[facility] LABCLIA [id number] [place] [address] CNNURSEon 10-03-2022 CNNURSE Normal [facility] CNOVSPon 10-03-2022 CNOVSP Normal [facility] Comprehensive metabolic 2000 panelon 10-03-2022 Albumin [Mass/Vol] 3.7 g/dL Low 3.9-4.9 [facility] Comment on above: Order Comment: Speci men Type: BLOOD SPECIMENOrdering Facility: [facility] Address: [address] [place] [address] Performed By: #### 2 4323-8 ####[facility] LABCLIA [id number] [place] [address] ALP [Catalytic activity/Vol] 152 U/L High 38-113 [facility] Comment on above: Order Comment: Speci men Type: BLOOD SPECIMENOrdering Facility: [facility] Address: [address] [place] [address] Performed By: #### 2 4323-8 ####[facility] LABCLIA [id number] [place] [address] ALT [Catalytic activity/Vol] 26 U/L Normal 10-54 [facility] Comment on above: Order Comment: Speci men Type: BLOOD SPECIMENOrdering Facility: [facility] Address: [address] [place] [address] Performed By: #### 2 4323-8 ####[facility] LABCLIA [id number] [place] [address] Anion gap [Moles/Vol] 10 mmol/L Normal 9-18 [facility] Comment on above: Order Comment: Speci men Type: BLOOD SPECIMENOrdering Facility: [facility] Address: [address] [place] [address] Performed By: #### 2 4323-8 ####[facility] LABCLIA [id number] [place] [address] AST [Catalytic activity/Vol] 16 U/L Normal 14-40 [facility] Comment on above: Order Comment: Speci men Type: BLOOD SPECIMENOrdering Facility: [facility] Address: [address] [address] Performed By: #### 2 4323-8 ####[facility] LABCLIA [id number] [place] [address] Bilirubin [Mass/Vol] 0.2 mg/dL Normal 0.2-1.3 [facility] Comment on above: Order Comment: Speci men Type: BLOOD SPECIMENOrdering Facility: [facility] Address: [address] [address] Performed By: #### 2 4323-8 ####[facility] LABCLIA [id number] [place] [address] Calcium [Mass/Vol] 9.1 mg/dL Normal 8.5-10.2 [facility] Comment on above: Order Comment: Speci men Type: BLOOD SPECIMENOrdering Facility: [facility] Address: [address] [address] Performed By: #### 2 4323-8 ####[facility] LABCLIA [id number] [place] [address] Chloride [Moles/Vol] 102 mmol/L Normal 97-105 [facility] Comment on above: Order Comment: Speci men Type: BLOOD SPECIMENOrdering Facility: [facility] Address: [address] [address] Performed By: #### 2 4323-8 ####[facility] LABCLIA [id number] [place] [address] CO2 [Moles/Vol] 19 mmol/L Low 22-30 [facility] Comment on above: Order Comment: Speci men Type: BLOOD SPECIMENOrdering Facility: [facility] Address: [address] [address] Performed By: #### 2 4323-8 ####[facility] LABCLIA [id number] [place] [address] Creatinine [Mass/Vol] 0.76 mg/dL Normal 0.73-1.22 [facility] Comment on above: Order Comment: Frank real Type: BLOOD SPECIMENOrdering Facility: [facility] Address: [address] [place] [address] Performed By: #### 2 4323-8 ####[facility] LABCLIA [id number] [place] [address] ESTIMATED GLOMERULAR FILTRATION RATE 100 mL/min/1.73m??? Normal >=60 [facility] Comment on above: Order Comment: Frank real Type: BLOOD SPECIMENOrdering Facility: [facility] Address: [address] [place] [address] Result Comment: Megan mated Glomerular Filtration Rate [...] actual GFR. Performed By: #### 2 4323-8 ####[facility] LABCLIA [id number] [place] [address] Glucose [Mass/Vol] 470 mg/dL High 74-99 [facility] Comment on above: Order Comment: Frank real Type: BLOOD SPECIMENOrdering Facility: [facility] Address: [address] [place] [address] Result Comment: The [place] [employer] (ADA) provides guidance for cutoff [...] Standards of Medical Care in Diabetes 2016, [place] [employer]. Diabetes Care. 2016.39(Suppl 1). Performed By: #### 2 4323-8 ####[facility] LABCLIA [id number] [place] [address] Potassium [Moles/Vol] 5.1 mmol/L Normal 3.7-5.1 [facility] Comment on above: Order Comment: Speci men Type: BLOOD SPECIMENOrdering Facility: [facility] Address: [address] [address] Performed By: #### 2 4323-8 ####[facility] LABCLIA [id number] [place] [address] Protein [Mass/Vol] 7.1 g/dL Normal 6.3-8.0 [facility] Comment on above: Order Comment: Speci men Type: BLOOD SPECIMENOrdering Facility: [facility] Address: [address] [address] Performed By: #### 2 4323-8 ####[facility] LABCLIA [id number] [place] [address] Sodium [Moles/Vol] 131 mmol/L Low 136-144 [facility] Comment on above: Order Comment: Speci men Type: BLOOD SPECIMENOrdering Facility: [facility] Address: [address] [address] Performed By: #### 2 4323-8 ####[facility] LABCLIA [id number] [place] [address] Urea nitrogen [Mass/Vol] 24 mg/dL Normal 9-24 [facility] Comment on above: Order Comment: Speci men Type: BLOOD SPECIMENOrdering Facility: [facility] Address: [address] [address] Performed By: #### 2 4323-8 ####[facility] LABCLIA [id number] [place] [address] Ferritin SerPl-mCncon 2022 Ferritin [Mass/Vol] 308.0 ng/mL Normal 30.3-565.7 [facility] Comment on above: Order Comment: Speci men Type: BLOOD SPECIMENOrdering Facility: [facility] Address: [address] [place] [address] Performed By: #### 5 0190-8, 9, 2275-4, 8 ####[facility] LABCLIA [id number] [place] [address] [place] Folate SerPl-mCncon 10-04-19 Folate [Mass/Vol] 11.6 ng/mL Normal >4.[address] [facility] Comment on above: Order Comment: Speci men Type: BLOOD SPECIMENOrdering Facility: [facility] Address: [address] [place] [address] Performed By: #### 5 0190-8, 9, 4, 8 ####[facility] LABIA [id number] [place] [address] [place] Iron and Iron binding capaci ty panelon 10-03-2022 Iron [Mass/Vol] 39 ug/dL Low 41-186 [facility] Comment on above: Order Comment: Speci men Type: BLOOD SPECIMENOrdering Facility: [facility] Address: [address] [place] [address] Performed By: #### 5 0190-8, 9, 4, 8 ####[facility] LABIA [id number] [place] [address] [place] Iron binding capacity [Mass/Vol] 226 ug/dL Low 232-386 [facility] Comment on above: Order Comment: Speci men Type: BLOOD SPECIMENOrdering Facility: [facility] Address: [address] [place] [address] Performed By: #### 5 0190-8, 9, 4, 2284-01 ####[facility] LABCLIA [id number] [place] [id number] [place] Iron/TIBC [Molar ratio] 17.3 % Normal 15.0-57.0 [facility] Comment on above: Order Comment: Speci men Type: BLOOD SPECIMENOrdering Facility: [facility] Address: [address] Performed By: #### 5 0190-8, 9, 2275-09, 2284-01 ####[facility] LABIA [id number] [address] [id number] [place] Vit B12 [facility] 04-07-2 023 Cobalamin (Vitamin B12) [Mass/Vol] 1009 pg/mL Normal 232-1245 [facility] Comment on above: Order Comment: Speci men Type: BLOOD SPECIMENOrdering Facility: [facility] Address: [address] [address] Performed By: #### 5 0190-8, 9, 2275-09, 2284-01 ####[facility] LABCLIA [id number] [address] [place] Office Visit (Cardiology)on [...] follow-up, with recent hospitalization in June at [facility] for atypical chest pain, anxiety, rate controlled [...] Patient does have a history of prior AZ and stenting in 2010 due to an anterior AZ with two 4 x 18 and 4 [...] on low-dose Eliquis, ECG from June 2022 [facility] admission is noted for sinus rhythm He [...] ONE TABLET BY MOUTH AT BEDTIME Creon [id number] UNIT Oral Capsule Delayed Release Particles1 tablet [...] DAILY BEFORE MEALS. Vitamin D3 1.25 MG (47562 UT) Oral CapsuleTAKE 1 CAPSULE Daily Xanax [...] Recorded: 16Sep2022 11:33AM Heart Rate78, L Radial Cqyhsogq376, LUE, Sitting Crxdammhi46, LUE, Sitting Height5 ft 8 in Vxqctr055 lb BMI Zzfehfhwxy31.05 kg/m2 BSA Calculated1.78 Tobacco Useb) No PHQ-2 [...] auscultation. Cardiovascul (more content not included)... Normal [employer] [employer] CNNURSEon 09-05-2022 CNNURSE Normal [facility] CBC W Auto Differential pane l (Bld)on 08-08-2022 Basophils (Bld) [#/Vol] 10*3/uL Normal <0.11 [facility] Comment on above: Order Comment: Speci men Type: BLOOD SPECIMENOrdering Facility: [facility] Address: [address] [place] [address] Performed By: #### 5 7021-8 ####[facility] LABCLIA [id number] [place] [address] Basophils/100 WBC (Bld) 0.2 % Normal [facility] Comment on above: Order Comment: Speci men Type: BLOOD SPECIMENOrdering Facility: [facility] Address: [address] [place] [address] Performed By: #### 5 7021-8 ####[facility] LABCLIA [id number] [place] [address] Differential cell count method Nom (Bld) Auto Normal [facility] Comment on above: Order Comment: Speci men Type: BLOOD SPECIMENOrdering Facility: [facility] Address: [address] [place] [address] Performed By: #### 5 7021-8 ####[facility] LABCLIA [id number] [place] [address] Eosinophils (Bld) [#/Vol] 0.18 10*3/uL Normal <0.46 [facility] Comment on above: Order Comment: Speci men Type: BLOOD SPECIMENOrdering Facility: [facility] Address: [address] [place] [address] Performed By: #### 5 7021-8 ####[facility] LABCLIA [id number] [place] [address] Eosinophils/100 WBC (Bld) 3.8 % Normal [facility] Comment on above: Order Comment: Speci men Type: BLOOD SPECIMENOrdering Facility: [facility] Address: [address] [place], [place] [address] Performed By: #### 5 7021-8 ####[facility] LABCLIA [id number] [place] [address] Erythrocyte distribution width (RBC) [Ratio] 12.5 % Normal 11.5-15.0 [facility] Comment on above: Order Comment: Speci men Type: BLOOD SPECIMENOrdering Facility: [facility] Address: [address] [place] [address] Performed By: #### 5 7021-8 ####[facility] LABCLIA [id number] [place] [address] Hematocrit (Bld) [Volume fraction] 32.5 % Low 39.0-51.0 [facility] Comment on above: Order Comment: Speci men Type: BLOOD SPECIMENOrdering Facility: [facility] Address: [address] [place] [address] Performed By: #### 5 7021-8 ####[facility] LABIA [id number] [place] [address] Hemoglobin (Bld) [Mass/Vol] 10.1 g/dL Low 13.0-17.0 [facility] Comment on above: Order Comment: Speci men Type: BLOOD SPECIMENOrdering Facility: [facility] Address: [address] [place] [address] Performed By: #### 5 7021-8 ####[facility] LABCLIA [id number] [place] [address] Immature granulocytes (Bld) [#/Vol] 10*3/uL Normal <0.10 [facility] Comment on above: Order Comment: Speci men Type: BLOOD SPECIMENOrdering Facility: [facility] Address: [address] [place] [address] Performed By: #### 5 7021-8 ####[facility] LABIA [id number] [place] [address] Immature granulocytes/100 WBC (Bld) 0.4 % Normal [facility] Comment on above: Order Comment: Speci men Type: BLOOD SPECIMENOrdering Facility: [facility] Address: [address] [place] [address] Performed By: #### 5 7021-8 ####[facility] LABCLIA [id number] [place] [address] Lymphocytes (Bld) [#/Vol] 1.03 10*3/uL Normal 1.00-4.00 [facility] Comment on above: Order Comment: Speci men Type: BLOOD SPECIMENOrdering Facility: [facility] Address: [address] [place] [address] Performed By: #### 5 7021-8 ####[facility] LABCLIA [id number] [place] [address] Lymphocytes/100 WBC (Bld) 22.0 % Normal [facility] Comment on above: Order Comment: Speci men Type: BLOOD SPECIMENOrdering Facility: [facility] Address: [address] [place] [address] Performed By: #### 5 7021-8 ####[facility] LABCLIA [id number] [place] [address] MCH (RBC) [Entitic mass] 31.9 pg Normal 26.0-34.0 [facility] Comment on above: Order Comment: Speci men Type: BLOOD SPECIMENOrdering Facility: [facility] Address: [address] [place] [address] Performed By: #### 5 7021-8 ####[facility] LABIA [id number] [place] [address] MCHC (RBC) [Mass/Vol] 31.1 g/dL Normal 30.5-36.0 [facility] Comment on above: Order Comment: Speci men Type: BLOOD SPECIMENOrdering Facility: [facility] Address: [address] [place] [address] Performed By: #### 5 7021-8 ####[facility] LABCLIA [id number] [place] [address] MCV (RBC) [Entitic vol] 102.5 fL High 80.0-100.0 [facility] Comment on above: Order Comment: Speci men Type: BLOOD SPECIMENOrdering Facility: [facility] Address: [address] [place] [address] Performed By: #### 5 7021-8 ####[facility] LABCLIA [id number] [place] [address] Monocytes (Bld) [#/Vol] 0.41 10*3/uL Normal <0.87 [facility] Comment on above: Order Comment: Speci men Type: BLOOD SPECIMENOrdering Facility: [facility] Address: [address] [place] [address] Performed By: #### 5 7021-8 ####[facility] LABCLIA [id number] [place] [address] Monocytes/100 WBC (Bld) 8.8 % Normal [facility] Comment on above: Order Comment: Speci men Type: BLOOD SPECIMENOrdering Facility: [facility] Address: [address] [place] [address] Performed By: #### 5 7021-8 ####[facility] LABCLIA [id number] [place] [address] Neutrophils (Bld) [#/Vol] 3.03 10*3/uL Normal 1.45-7.50 [facility] Comment on above: Order Comment: Speci men Type: BLOOD SPECIMENOrdering Facility: [facility] Address: [address] [place] [address] Performed By: #### 5 7021-8 ####[facility] LABCLIA [id number] [place] [address] Neutrophils/100 WBC (Bld) 64.8 % Normal [facility] Comment on above: Order Comment: Speci men Type: BLOOD SPECIMENOrdering Facility: [facility] Address: [address] [address] Performed By: #### 5 7021-8 ####[facility] LABCLIA [id number] [place] [address] Nucleated RBC (Bld) [#/Vol] 10*3/uL Normal <0.01 [facility] Comment on above: Order Comment: Speci men Type: BLOOD SPECIMENOrdering Facility: [facility] Address: [address] [address] Performed By: #### 5 7021-8 ####[facility] LABCLIA [id number] [place] [address] Nucleated RBC/100 WBC (Bld) [Ratio] 0.0 /100 WBC Normal [facility] Comment on above: Order Comment: Speci men Type: BLOOD SPECIMENOrdering Facility: [facility] Address: [address] [address] Performed By: #### 5 7021-8 ####[facility] LABCLIA [id number] [place] [address] Platelet mean volume (Bld) [Entitic vol] 9.1 fL Normal 9.0-12.7 [facility] Comment on above: Order Comment: Speci men Type: BLOOD SPECIMENOrdering Facility: [facility] Address: [address] [address] Performed By: #### 5 7021-8 ####[facility] LABCLIA [id number] [place] [address] Platelets (Bld) [#/Vol] 278 10*3/uL Normal 150-400 [facility] Comment on above: Order Comment: Speci men Type: BLOOD SPECIMENOrdering Facility: [facility] Address: [address] [address] Performed By: #### 5 7021-8 ####[facility] LABCLIA [id number] [place] [address] RBC (Bld) [#/Vol] 3.17 10*6/uL Low 4.20-6.00 [facility] Comment on above: Order Comment: Speci men Type: BLOOD SPECIMENOrdering Facility: [facility] Address: [address] [place] [address] Performed By: #### 5 7021-8 ####[facility] LABIA [id number] [place] [address] WBC (Bld) [#/Vol] 4.68 10*3/uL Normal 3.70-11.00 [facility] Comment on above: Order Comment: Speci men Type: BLOOD SPECIMENOrdering Facility: [facility] Address: [address] [place] [address] Performed By: #### 5 7021-8 ####[facility] [id number] [place] [address] CNNURSEon 08-08-2022 CNNURSE Normal [facility] CNOVSPon 08-08-2022 CNOVSP Normal [facility] CNPNon 08-08-2022 CNPN Normal [facility] Comprehensive metabolic 2000 panelon 08-08-2022 Albumin [Mass/Vol] 3.9 g/dL Normal 3.9-4.9 [facility] Comment on above: Order Comment: Speci men Type: BLOOD SPECIMENOrdering Facility: [facility] Address: [address] [place] [address] Performed By: #### 2 4323-8 ####[facility] LABIA [id number] [place] [address] ALP [Catalytic activity/Vol] 146 U/L High 38-113 [facility] Comment on above: Order Comment: Speci men Type: BLOOD SPECIMENOrdering Facility: [facility] Address: [address] [place] [address] Performed By: #### 2 4323-8 ####[facility] LABCLIA [id number] [place] [address] ALT [Catalytic activity/Vol] 36 U/L Normal 10-54 [facility] Comment on above: Order Comment: Speci men Type: BLOOD SPECIMENOrdering Facility: [facility] Address: [address] [place] [address] Performed By: #### 2 4323-8 ####[facility] LABCLIA [id number] [place] [address] Anion gap [Moles/Vol] 9 mmol/L Normal 9-18 [facility] Comment on above: Order Comment: Speci men Type: BLOOD SPECIMENOrdering Facility: [facility] Address: [address] [place] [address] Performed By: #### 2 4323-8 ####[facility] LABCLIA [id number] [place] [address] AST [Catalytic activity/Vol] 34 U/L Normal 14-40 [facility] Comment on above: Order Comment: Speci men Type: BLOOD SPECIMENOrdering Facility: [facility] Address: [address] [place] [address] Performed By: #### 2 4323-8 ####[facility] LABCLIA [id number] [place] [address] Bilirubin [Mass/Vol] 0.3 mg/dL Normal 0.2-1.3 [facility] Comment on above: Order Comment: Speci men Type: BLOOD SPECIMENOrdering Facility: [facility] Address: [address] [place] [address] Performed By: #### 2 4323-8 ####[facility] LABCLIA [id number] [place] [address] Calcium [Mass/Vol] 9.4 mg/dL Normal 8.5-10.2 [facility] Comment on above: Order Comment: Speci men Type: BLOOD SPECIMENOrdering Facility: [facility] Address: [address] [address] Performed By: #### 2 4323-8 ####[facility] LABCLIA [id number] [place] [address] Chloride [Moles/Vol] 104 mmol/L Normal 97-105 [facility] Comment on above: Order Comment: Speci men Type: BLOOD SPECIMENOrdering Facility: [facility] Address: [address] [place] [address] Performed By: #### 2 4323-8 ####[facility] LABCLIA [id number] [place] [address] CO2 [Moles/Vol] 19 mmol/L Low 22-30 [facility] Comment on above: Order Comment: Speci men Type: BLOOD SPECIMENOrdering Facility: [facility] Address: [address] [place] [address] Performed By: #### 2 4323-8 ####[facility] LABCLIA [id number] [place] [address] Creatinine [Mass/Vol] 0.85 mg/dL Normal 0.73-1.22 [facility] Comment on above: Order Comment: Speci men Type: BLOOD SPECIMENOrdering Facility: [facility] Address: [address] [place] [address] Performed By: #### 2 4323-8 ####[facility] LABCLIA [id number] [place] [address] ESTIMATED GLOMERULAR FILTRATION RATE 96 mL/min/1.73m??? Normal >=60 [facility] Comment on above: Order Comment: Speci men Type: BLOOD SPECIMENOrdering Facility: [facility] Address: [address] [place] [address] Result Comment: Megan mated Glomerular Filtration Rate [...] actual GFR. Performed By: #### 2 4323-8 ####[facility] LABCLIA [id number] [place] [address] Glucose [Mass/Vol] 501 mg/dL High 74-99 [facility] Comment on above: Order Comment: Specabiola men Type: BLOOD SPECIMENOrdering Facility: [facility] Address: [address] [id number] Result Comment: The [place] [employer] (ADA) provides guidance for cutoff [...] Standards of Medical Care in Diabetes 2016, [place] [employer]. Diabetes Care. 2016.39(Suppl 1). Performed By: #### 2 4323-8 ####[facility] LABCLIA [id number] [place] [address] Potassium [Moles/Vol] 5.4 mmol/L High 3.7-5.1 [facility] Comment on above: Order Comment: Frank real Type: BLOOD SPECIMENOrdering Facility: [facility] Address: [address] [place] [address] Performed By: #### 2 4323-8 ####[facility] LABCLIA [id number] [place] [address] Protein [Mass/Vol] 7.4 g/dL Normal 6.3-8.0 [facility] Comment on above: Order Comment: Frank men Type: BLOOD SPECIMENOrdering Facility: [facility] Address: [address] [address] Performed By: #### 2 4323-8 ####[facility] LABCLIA [id number] [place] [address] Sodium [Moles/Vol] 132 mmol/L Low 136-144 [facility] Comment on above: Order Comment: Speci men Type: BLOOD SPECIMENOrdering Facility: [facility] Address: [address] [address] Performed By: #### 2 4323-8 ####[facility] LABCLIA [id number] [place] [address] Urea nitrogen [Mass/Vol] 29 mg/dL High 9-24 [facility] Comment on above: Order Comment: Speci men Type: BLOOD SPECIMENOrdering Facility: [facility] Address: [address] [address] Performed By: #### 2 4323-8 ####[facility] LABCLIA [id number] [place] [address] Ferritin SerPl-mCncon 2022 Ferritin [Mass/Vol] 409.0 ng/mL Normal 30.3-565.7 [facility] Comment on above: Order Comment: Speci men Type: BLOOD SPECIMENOrdering Facility: [facility] Address: [address] [address] Performed By: #### 5 0190-8, 9, 6-4, 2284-8 ####[facility] LABCLIA [id number] [facility] [place] [address] [place] Folate SerPl-mCncon 08-08-19 23 Folate [Mass/Vol] 8.4 ng/mL Normal >4.[address] [facility] Comment on above: Order Comment: Speci men Type: BLOOD SPECIMENOrdering Facility: [facility] Address: [address] [address] Performed By: #### 5 0190-8, 2132-02, 2275-09, 2284-01 ####[facility] LABIA [id number] [place] [id number] [place] Iron and Iron binding capaci ty panelon 08-08-2022 Iron [Mass/Vol] 35 ug/dL Low 41-186 [facility] Comment on above: Order Comment: Speci men Type: BLOOD SPECIMENOrdering Facility: [facility] Address: [address] [place] [address] Performed By: #### 5 0190-8, 9, 2275-09, 2284-01 ####[facility] [id number] [place] [address] [place] Iron binding capacity [Mass/Vol] 253 ug/dL Normal 232-386 [facility] Comment on above: Order Comment: Speci men Type: BLOOD SPECIMENOrdering Facility: [facility] Address: [address] [place] [address] Performed By: #### 5 0190-8, 9, 2275-09, 2284-01 ####[facility] [id number] [place] [address] [place] Iron/TIBC [Molar ratio] 13.8 % Low 15.0-57.0 [facility] Comment on above: Order Comment: Speci men Type: BLOOD SPECIMENOrdering Facility: [facility] Address: [address] [place] [address] Performed By: #### 5 0190-8, 9, 2275-09, 2284-01 ####[facility] [id number] [place] [id number] [place] Vit B12 SerPl-mCncon 023 Cobalamin (Vitamin B12) [Mass/Vol] 821 pg/mL Normal 232-1245 [facility] Comment on above: Order Comment: Speci men Type: BLOOD SPECIMENOrdering Facility: [facility] Address: [address] [place], [place] [address] [address] Performed By: #### 5 0190-8, 2132-9, 2276-4, 2284-8 ####[facility] LABCLIA [id number] LASHANDA MORRIS [address] [place] BNPon 07-12-2022 Natriuretic peptide B (Bld) [Mass/Vol] 3610.0 pg/mL Critically high <=900.0 [facility] Comment on above: Performed By: #### P T, PTT #### [facility] [address] [place] [address] Dr. eMl Barrientos CBC AUTO DIFFon 07-12-2022 BASO # 0.0 103/ul Normal 0.0-0.1 [facility] Comment on above: Performed By: #### C BC #### [facility] [address] [place] [address] Dr. Mel Barrientos Basophils/100 WBC (Bld) 0.4 % Normal 0.2-2.0 [facility] Comment on above: Performed By: #### C BC #### [facility] [address] [place] [address] Dr. Mel Barrientos EO # 0.1 103/ul Normal 0.0-0.7 [facility] Comment on above: Performed By: #### C BC #### [facility] [address] [place] [address] Dr. Mel Barrientos Eosinophils/100 WBC (Bld) 3.5 % Normal 0.9-7.0 [facility] Comment on above: Performed By: #### C BC #### [facility] [address] [place] [address] Dr. Mel Barrientos Erythrocyte distribution width (RBC) [Ratio] 12.9 % Normal 11.0-15.0 [facility] Comment on above: Performed By: #### C BC #### [facility] [address] [place] [address] Dr. Mel Barrientos Hematocrit (Bld) [Volume fraction] 25.4 % Critically low 42.0-54.0 [facility] Comment on above: Performed By: #### C BC #### [facility] [address] [place] [address] Dr. Mel Barrientos Hemoglobin (Bld) [Mass/Vol] 8.3 g/dL Critically low 14.0-18.0 [facility] Comment on above: Performed By: #### C BC #### [facility] [address] [place] [address] Dr. Mel Barrientos IG # 0.00 10e3/ul Normal 0.00-0.03 [facility] Comment on above: Performed By: #### C BC #### [facility] [address] [place] [address] Dr. Mel Barrientos IG % 0.0 % Normal 0.0-0.5 [facility] Comment on above: Performed By: #### C BC #### [facility] [address] [place] [address] Dr. Mel Barrientos LYMPH # 1.0 103/ul Critically low 1.2-3.8 [facility] [facility] Comment on above: Performed By: #### C BC #### [facility] [address] [place] [address] Dr. Mel Barrientos Lymphocytes/100 WBC (Bld) 35.0 % Normal 20.5-60.0 [facility] Comment on above: Performed By: #### C BC #### [facility] [address] [place] [address] Dr. Mel Barrientos MANUAL DIFF REQ NO Normal [facility] Comment on above: Performed By: #### C BC #### [facility] [address] [place] [address] Dr. Mel Barrientos MCH (RBC) [Entitic mass] 33.5 pg Normal 25.9-34.0 [facility] Comment on above: Performed By: #### C BC #### [facility] [address] [place] [address] Dr. Mel Barrientos MCHC (RBC) [Mass/Vol] 32.7 g/dL Normal 29.9-35.2 [facility] Comment on above: Performed By: #### C BC #### [facility] [address] [address] [address] Mel Barrientos MCV (RBC) [Entitic vol] 102.4 fL Critically high 80.0-94.0 [facility] Comment on above: Performed By: #### C BC #### [facility] [address] [address] [address] Mel Barrientos MONO # 0.5 103/ul Normal 0.3-0.8 [facility] Comment on above: Performed By: #### C BC #### [facility] [address] [place] [address] Dr. Mel Barrientos Monocytes/100 WBC (Bld) 18.7 % Critically high 1.7-12.0 [facility] Comment on above: Performed By: #### C BC #### [facility] [address] [place] [address] Dr. Mel Barrientos NEUT # 1.2 103/ul Critically low 1.4-6.5 [facility] Comment on above: Performed By: #### C BC #### [facility] [address] [place] [address] Dr. Mel Barrientos Neutrophils/100 WBC (Bld) 42.4 % Critically low 43.0-75.0 [facility] Comment on above: Performed By: #### C BC #### [facility] [address] [place] [address] Dr. Mel Barrientos Platelet mean volume (Bld) [Entitic vol] 8.6 fL Critically low 9.5-13.5 [facility] Comment on above: Performed By: #### C BC #### [facility] [address] [place] [address] Dr. Mel Barrientos PLT 208 103/ul Normal 150-450 [facility] Comment on above: Performed By: #### C BC #### [facility] [address] [place] [address] Dr. Mel Barrientos RBC 2.48 106/ul Critically low 4.70-6.10 [facility] Comment on above: Performed By: #### C BC #### [facility] [address] [address] [address] Mel Barrientos WBC 2.8 103/ul Critically low 4.0-11.0 [facility] Comment on above: Performed By: #### C BC #### [facility] [address] [address] [address] Mel Barrientos LIPID PROFILEon 07-12-2022 CHOL-HDL RATIO NORM SEE BELOW Normal [facility] Comment on above: Result Comment: 3.3 - 4.4 LOW RISK 4.4 - 7.1 AVERAGE RISK 7.1 - 11.0 MODERATE RISK >11.0 HIGH RISK Performed By: #### P T, PTT #### [facility] [address] [place] [address] Dr. Mel Barrientos Cholesterol [Mass/Vol] 74 mg/dL Normal <=200 [facility] Comment on above: Performed By: #### P T, PTT #### [facility] [address] [address] [address] Mel Barrientos Cholesterol in HDL [Mass/Vol] 24 mg/dL Critically low 40-60 [facility] Comment on above: Performed By: #### P T, PTT #### [facility] [address] [address] [address] Mel Barrientos Cholesterol in LDL [Mass/Vol] 36.8 mg/dL Normal [facility] Comment on above: Performed By: #### P T, PTT #### [facility] [address] [address] [address] Mel Barrientos Cholesterol.total/Cho lesterol in HDL [Mass ratio] 3.1 {ratio} Normal [facility] Comment on above: Performed By: #### P T, PTT #### [facility] [address] [address] [address] Mel Barrientos HDL NORMAL > or = 60 mg/dl - LO W CARDIOVASCULAR RISK <40 mg/dl - HIGH CARDIOVASCULAR RISK Normal [facility] Comment on above: Performed By: #### P T, PTT #### [facility] [address] [place] [address] Dr. Mel Barrientos LDL CALC NORMAL SEE BELOW Normal [facility] Comment on above: Result Comment: <100 mg/dl OPTIMAL 100 - 129 mg/dl NEAR OR ABOVE OPTIMAL 130 - 159 mg/dl BORDERLINE HIGH 160 - 189 mg/dl HIGH >190 mg/dl VERY HIGH Performed By: #### P T, PTT #### [facility] [address] [place] [address] Dr. Mel Barrientos Triglyceride [Mass/Vol] 66 mg/dL Normal <=150 [facility] Comment on above: Performed By: #### P T, PTT #### [facility] [address] [place] [address] Dr. Mel Barrientos VLDL CALC 13.2 mg/dL Normal [facility] Comment on above: Performed By: #### P T, PTT #### [facility] [address] [place] [address] Dr. Mel Barrientos PROF 14(COMP METB)on 023 Albumin [Mass/Vol] 2.7 g/dL Critically low 3.4-5.0 [facility] Comment on above: Performed By: #### P T, PTT #### [facility] [address] [place] [address] Dr. Mel Barrientos Albumin/Globulin [Mass ratio] 0.7 {ratio} Normal [facility] Comment on above: Performed By: #### P T, PTT #### [facility] [address] [place] [address] Dr. Mel Barrientos ALP [Catalytic activity/Vol] 128 U/L Critically high 46-116 [facility] Comment on above: Performed By: #### P T, PTT #### [facility] [address] [place] [address] Dr. Mel Barrientos ALT [Catalytic activity/Vol] 37 U/L Normal 16-63 [facility] Comment on above: Performed By: #### P T, PTT #### [facility] [address] [place] [address] Dr. Mel Barrientos Anion gap [Moles/Vol] 11.6 mmol/L Normal [facility] Comment on above: Performed By: #### P T, PTT #### [facility] [address] [address] [address] Mel Barrientos AST [Catalytic activity/Vol] 24 U/L Normal 15-37 [facility] Comment on above: Performed By: #### P T, PTT #### [facility] [address] [address] [address] Mel Barrientos Bilirubin [Mass/Vol] 0.3 mg/dL Normal 0.2-1.0 [facility] Comment on above: Performed By: #### P T, PTT #### [facility] [address] [place] [address] Dr. Mel Barrientos Calcium [Mass/Vol] 8.4 mg/dL Critically low 8.5-10.1 [facility] Comment on above: Performed By: #### P T, PTT #### [facility] [address] [place] [address] Dr. Mel Barrientos Chloride [Moles/Vol] 100 mmol/L Normal 98-107 [facility] Comment on above: Performed By: #### P T, PTT #### [facility] [address] [place] [address] Dr. Mel Barrientos CO2 [Moles/Vol] 24.5 mmol/L Normal 21.0-32.0 [facility] Comment on above: Performed By: #### P T, PTT #### [facility] [address] [place] [address] Dr. Mel Barrientos Creatinine [Mass/Vol] 0.80 mg/dL Normal 0.70-1.30 [facility] Comment on above: Performed By: #### P T, PTT #### [facility] [address] [place] [address] Dr. Mel Barrientos EGFR-AF BURUNDIAN >60 Normal >=60 [facility] Comment on above: Performed By: #### P T, PTT #### [facility] [address] [place] [address] Dr. Mel Barrientos EGFR-NON AF BURUNDIAN >60 Normal >=60 [facility] Comment on above: Performed By: #### P T, PTT #### [facility] [address] [address] [address] Mel Barrientos Globulin (S) [Mass/Vol] 3.8 g/dL Normal [facility] Comment on above: Performed By: #### P T, PTT #### [facility] [address] [place] [address] Dr. Mel Barrientos Glucose [Mass/Vol] 134 mg/dL Critically high 74-106 [facility] Comment on above: Performed By: #### P T, PTT #### [facility] [address] [place] [address] Dr. Mel Barrientos Potassium [Moles/Vol] 4.1 mmol/L Normal 3.5-5.1 [facility] Comment on above: Performed By: #### P T, PTT #### [facility] [address] [place] [address] Dr. Mel Barrientos Protein [Mass/Vol] 6.5 g/dL Normal 6.4-8.2 [facility] Comment on above: Performed By: #### P T, PTT #### [facility] [address] [place] [address] Dr. Mel Barrientos Sodium [Moles/Vol] 132 mmol/L Critically low 136-145 [facility] Comment on above: Performed By: #### P T, PTT #### [facility] [address] [place] [address] Dr. Mel Barrientos Urea nitrogen [Mass/Vol] 19.0 mg/dL Critically high 7.0-18.0 [facility] Comment on above: Performed By: #### P T, PTT #### [facility] [address] [place] [address] Dr. Mel Barrientos Urea nitrogen/Creatinine [Mass ratio] 23.8 mg/mg Normal [facility] Comment on above: Performed By: #### P T, PTT #### [facility] [address] [place] [address] Dr. Mel Barrientos T4on 07-12-2022 T4 [Mass/Vol] 5.90 ug/dL Normal 4.50-12.10 [facility] Comment on above: Performed By: #### P T, PTT #### [facility] [address] [place] [address] Dr. Mel Barrientos TSHon 07-12-2022 TSH 3.686 uIU/mL Normal 0.358-3.74 0 [facility] Comment on above: Performed By: #### P T, PTT #### [facility] [address] [place] [address] Dr. Mel Barrientos BNPon 07-11-2022 Natriuretic peptide B (Bld) [Mass/Vol] 1694.0 pg/mL Critically high <=900.0 [facility] Comment on above: Performed By: #### L IPID, CMP #### [facility] [address] [place] [address] Dr. Mel Barrientos CARDIAC SUSHILA 3-6on 3 CK [Catalytic activity/Vol] 139 U/L Normal 39-308 [facility] Comment on above: Performed By: #### C MREP #### [facility] [address] [place] [address] Dr. Mel Barrientos CK.MB [Mass/Vol] 1.99 ng/mL Normal <=3.60 [facility] Comment on above: Performed By: #### C MREP #### [facility] [address] [place] [address] Dr. Mel Barrientos HSTROP 6.9 pg/mL Normal 4.0-76.1 [facility] Comment on above: Result Comment: CUT- OFF POINTS HAVE BEEN ESTABLISHED BASED ON THE FOURTH UNIVERSAL DEFINITIONS OF MYOCARDIAL INFARCTION. THE UPPER REFERENCE LIMIT (URL) OF TROPONIN, DEFINED THE 99TH PERCENTILE OF cTnI DISTRIBUTION IN A REFERENCE POPULATION, HAS BEEN CONFIRMED THE DECISION THRESHOLD FOR [place] DIAGNOSIS. Performed By: #### C MREP #### [facility] [address] [place] [address] Dr. Mel Barrientos CK [Catalytic activity/Vol] 127 U/L Normal 39-308 [facility] Comment on above: Performed By: #### P T, PTT #### [facility] [address] [place] [address] Dr. Mel Barrientos CK.MB [Mass/Vol] 2.30 ng/mL Normal <=3.60 [facility] Comment on above: Performed By: #### P T, PTT #### [facility] [address] [place] [address] Dr. Mel Barrientos HSTROP 6.3 pg/mL Normal 4.0-76.1 [facility] Comment on above: Result Comment: CUT- OFF POINTS HAVE BEEN ESTABLISHED BASED ON THE FOURTH UNIVERSAL DEFINITIONS OF MYOCARDIAL INFARCTION. THE UPPER REFERENCE LIMIT (URL) OF TROPONIN, DEFINED THE 99TH PERCENTILE OF cTnI DISTRIBUTION IN A REFERENCE POPULATION, HAS BEEN CONFIRMED THE DECISION THRESHOLD FOR [place] DIAGNOSIS. Performed By: #### P T, PTT #### [facility] [address] [place] [address] Dr. Mel Barrientos CBC AUTO DIFFon 07-11-2022 BASO # 0.0 103/ul Normal 0.0-0.1 [facility] Comment on above: Performed By: #### C BC #### [facility] [address] [place] [address] Dr. Mel Barrientos Basophils/100 WBC (Bld) 0.3 % Normal 0.2-2.0 [facility] Comment on above: Performed By: #### C BC #### [facility] [address] [place] [address] Dr. Mel Barrientos EO # 0.1 103/ul Normal 0.0-0.7 [facility] Comment on above: Performed By: #### C BC #### [facility] [address] [place] [address] Dr. Mel Barrientos Eosinophils/100 WBC (Bld) 3.7 % Normal 0.9-7.0 [facility] Comment on above: Performed By: #### C BC #### [facility] [address] [place] [address] Dr. Mel Barrientos Erythrocyte distribution width (RBC) [Ratio] 13.3 % Normal 11.0-15.0 [facility] Comment on above: Performed By: #### C BC #### [facility] [address] [place] [address] Dr. Mel Barrientos Hematocrit (Bld) [Volume fraction] 31.7 % Critically low 42.0-54.0 [facility] Comment on above: Performed By: #### C BC #### [facility] [address] [place] [address] Dr. Mel Barrientos Hemoglobin (Bld) [Mass/Vol] 9.3 g/dL Critically low 14.0-18.0 [facility] Comment on above: Performed By: #### C BC #### [facility] [address] [place] [address] Dr. Mel Barrientos IG # 0.01 10e3/ul Normal 0.00-0.03 [facility] Comment on above: Performed By: #### C BC #### [facility] [address] [place] [address] Dr. Mel Barrientos IG % 0.3 % Normal 0.0-0.5 [facility] Comment on above: Performed By: #### C BC #### [facility] [address] [place] [address] Dr. Mel Barrientos LYMPH # 1.0 103/ul Critically low 1.2-3.8 [facility] Comment on above: Performed By: #### C BC #### [facility] [address] [place] [address] Dr. Mel Barrientos Lymphocytes/100 WBC (Bld) 26.1 % Normal 20.5-60.0 [facility] Comment on above: Performed By: #### C BC #### [facility] [address] [place] [address] Dr. Mel Barrientos MANUAL DIFF REQ NO Normal [facility] Comment on above: Performed By: #### C BC #### [facility] [address] [place] [address] Dr. Mel Barrientos MCH (RBC) [Entitic mass] 33.9 pg Normal 25.9-34.0 [facility] Comment on above: Performed By: #### C BC #### [facility] [address] [place] [address] Dr. Mel Barrientos MCHC (RBC) [Mass/Vol] 29.3 g/dL Critically low 29.9-35.2 [facility] Comment on above: Performed By: #### C BC #### [facility] [address] [place] [address] Dr. Mel Barrientos MCV (RBC) [Entitic vol] 115.7 fL Critically high 80.0-94.0 [facility] Comment on above: Performed By: #### C BC #### [facility] [address] [place] [address] Dr. Mel Barrientos MONO # 0.5 103/ul Normal 0.3-0.8 [facility] Comment on above: Performed By: #### C BC #### [facility] [address] [place] [address] Dr. Mel Barrientos Monocytes/100 WBC (Bld) 13.3 % Critically high 1.7-12.0 [facility] Comment on above: Performed By: #### C BC #### [facility] [address] [place] [address] Dr. Mel Barrientos NEUT # 2.1 103/ul Normal 1.4-6.5 [facility] Comment on above: Performed By: #### C BC #### [facility] [address] [place] [address] Dr. Mel Barrientos Neutrophils/100 WBC (Bld) 56.3 % Normal 43.0-75.0 [facility] Comment on above: Performed By: #### C BC #### [facility] [address] [place] [address] Dr. Mel Barrientos Platelet mean volume (Bld) [Entitic vol] 9.2 fL Critically low 9.5-13.5 [facility] Comment on above: Performed By: #### C BC #### [facility] [address] [place] [address] Dr. Mel Barrientos PLT 259 103/ul Normal 150-450 [facility] Comment on above: Performed By: #### C BC #### [facility] [address] [place] [address] Dr. Mel Barrientos RBC 2.74 106/ul Critically low 4.70-6.10 [facility] Comment on above: Performed By: #### C BC #### [facility] [address] [address] [address] Mel Barrientos WBC 3.8 103/ul Critically low 4.0-11.0 [facility] Comment on above: Performed By: #### C BC #### [facility] [address] [address] [address] Mel Barrientos Covid-19 PCR ([facility])on 06-29 SARS-CoV-2 (COVID-19) RNA NE+probe Ql (Unsp spec) Not detected Normal NOT DETECTED [facility] Comment on above: Result Comment: When diagnostic [...] for this test is supported by the [place] of [employer] and Human Service's declaration that [...] Performed By: #### P T, PTT #### [facility] [address] [place] [address] Dr. Mel Barrientos GLYCOHEMOGLOBIN A1Con 2022 ADA RECOMMENDATION SEE BELOW Normal [facility] Comment on above: Result Comment: ADA RECOMMENDED LIMIT 4.0 - 6.0 ADA THERAPEUTIC TARGET < 7.0 ACTION SUGGESTED > 7.0 Performed By: #### L IPID, CMP #### [facility] [address] [place] [address] Dr. Mel Barrientos Glucose [Mass/Vol] 128 mg/dL Normal [facility] Comment on above: Performed By: #### L IPID, CMP #### [facility] [address] [place] [address] Dr. Mel Barrientos HbA1c (Bld) [Mass fraction] 6.1 % Normal 4.5-6.2 [facility] Comment on above: Performed By: #### L IPID, CMP #### [facility] [address] [place] [address] Dr. Mel Barrientos LIPASEon 07-11-2022 Lipase [Catalytic activity/Vol] 10.0 U/L Critically low 73.0-393.0 [facility] Comment on above: Performed By: #### L IPID, CMP #### [facility] [address] [place] [address] Dr. Mel Barrientos PROF 14(COMP METB)on 023 Albumin [Mass/Vol] 3.1 g/dL Critically low 3.4-5.0 [facility] Comment on above: Performed By: #### L IPID, CMP #### [facility] [address] [place] [address] Dr. Mel Barrientos Albumin/Globulin [Mass ratio] 0.7 {ratio} Normal [facility] Comment on above: Performed By: #### L IPID, CMP #### [facility] [address] [place] [address] Dr. Mel Barrientos ALP [Catalytic activity/Vol] 143 U/L Critically high 46-116 [facility] Comment on above: Performed By: #### L IPID, CMP #### [facility] [address] [place] [address] Dr. Mel Barrientos ALT [Catalytic activity/Vol] 52 U/L Normal 16-63 [facility] Comment on above: Performed By: #### L IPID, CMP #### [facility] [address] [place] [address] Dr. Mel Barrientos Anion gap [Moles/Vol] 12.7 mmol/L Normal [facility] Comment on above: Performed By: #### L IPID, CMP #### [facility] [address] [place] [address] Dr. Mel Barrientos AST [Catalytic activity/Vol] 31 U/L Normal 15-37 [facility] Comment on above: Performed By: #### L IPID, CMP #### [facility] [address] [place] [address] Dr. Mel Barrientos Bilirubin [Mass/Vol] 0.3 mg/dL Normal 0.2-1.0 [facility] Comment on above: Performed By: #### L IPID, CMP #### [facility] [address] [place] [address] Dr. Mel Barrientos Calcium [Mass/Vol] 8.6 mg/dL Normal 8.5-10.1 [facility] Comment on above: Performed By: #### L IPID, CMP #### [facility] [address] [place] [address] Dr. Mel Barrientos Chloride [Moles/Vol] 103 mmol/L Normal 98-107 [facility] Comment on above: Performed By: #### L IPID, CMP #### [facility] [address] [place] [address] Dr. Mel Barrientos CO2 [Moles/Vol] 24.7 mmol/L Normal 21.0-32.0 [facility] Comment on above: Performed By: #### L IPID, CMP #### [facility] [address] [place] [address] Dr. Mel Barrientos Creatinine [Mass/Vol] 0.90 mg/dL Normal 0.70-1.30 [facility] Comment on above: Performed By: #### L IPID, CMP #### [facility] [address] [place] [address] Dr. Mel Barrientos EGFR-AF BURUNDIAN >60 Normal >=60 [facility] Comment on above: Performed By: #### L IPID, CMP #### [facility] [address] [place] [address] Dr. Mel Barrientos EGFR-NON AF [place]UNDIAN >60 Normal >=60 [facility] Comment on above: Performed By: #### L IPID, CMP #### [facility] [address] [place] [address] Dr. Mel Barrientos Globulin (S) [Mass/Vol] 4.2 g/dL Normal [facility] [facility] Comment on above: Performed By: #### L IPID, CMP #### [facility] [address] [place] [address] Dr. Mel Barrientos Glucose [Mass/Vol] 204 mg/dL Critically high 74-106 T [facility] Comment on above: Performed By: #### L IPID, CMP #### [facility] [address] [place] [address] Dr. Mel Barrientos Potassium [Moles/Vol] 4.4 mmol/L Normal 3.5-5.1 [facility] Comment on above: Performed By: #### L IPID, CMP #### [facility] [address] [place] [address] Dr. Mel Barrientos Protein [Mass/Vol] 7.3 g/dL Normal 6.4-8.2 [facility] Comment on above: Performed By: #### L IPID, CMP #### [facility] [address] [place] [address] Dr. Mel Barrientos Sodium [Moles/Vol] 136 mmol/L Normal 136-145 [facility] Comment on above: Performed By: #### L IPID, CMP #### [facility] [address] [place] [address] Dr. Mel Barrientos Urea nitrogen [Mass/Vol] 20.0 mg/dL Critically high 7.0-18.0 [facility] Comment on above: Performed By: #### L IPID, CMP #### [facility] [address] [place] [address] Dr. Mel Barrientos Urea nitrogen/Creatinine [Mass ratio] 22.2 mg/mg Normal [facility] Comment on above: Performed By: #### L IPID, CMP #### [facility] [address] [place] [address] Dr. Mel Barrientos PROTIMEon 07-11-2022 INR Coag (PPP) [Relative time] 1.14 {INR} Normal [facility] Comment on above: Performed By: #### P T, PTT #### [facility] [address] [place] [address] Dr. Mel Barrientos INR GUIDELINES SEE BELOW Normal [facility] Comment on above: Result Comment: JESSIKA RED INR: 2.0 - 3.0 CONDITIONS NOT LISTED BELOW 2.5 - 3.5 FOR PROSTHETIC HEART VALVE REPLACEMENT 2.5 - 3.5 RECURRENT THROMBOSIS Performed By: #### P T, PTT #### [facility] [address] [place] [address] Dr. Mel Barrientos PT Coag (PPP) [Time] 12.0 s Critically high 9.0-11.6 [facility] Comment on above: Performed By: #### P T, PTT #### [facility] [address] [place] [address] Dr. Mel Barrientos PTTon 07-11-2022 aPTT Coag (Bld) [Time] 30.8 s Normal 22.3-36.2 [facility] Comment on above: Performed By: #### P T, PTT #### [facility] [address] [place] [address] Dr. Mel Barrientos TROPONIN, HIGH SENSITIVITYon 07-11-2022 HSTROP 6.6 pg/mL Normal 4.0-76.1 [facility] Comment on above: Result Comment: CUT- OFF POINTS HAVE BEEN ESTABLISHED BASED ON THE FOURTH UNIVERSAL DEFINITIONS OF MYOCARDIAL INFARCTION. THE UPPER REFERENCE LIMIT (URL) OF TROPONIN, DEFINED THE 99TH PERCENTILE OF cTnI DISTRIBUTION IN A REFERENCE POPULATION, HAS BEEN CONFIRMED THE DECISION THRESHOLD FOR [place] DIAGNOSIS. Performed By: #### L IPID, CMP #### [facility] [address] [place] [address] Dr. Mel Barrientos XR CHEST 1 Von [...] by: MAR MOE Date: 2022-07-11 14:05 Normal [facility] CNPNon 07-07-2022 CNPN Normal [facility] CBC W Auto Differential pane l (Bld)on 07-03-2022 Basophils (Bld) [#/Vol] 10*3/uL Normal <0.11 [facility] Comment on above: Order Comment: Speci men Type: BLOOD SPECIMENOrdering Facility: [facility] Address: [address] [place] [address] Performed By: #### 5 7021-8 ####[facility] LABCLIA [id number] [place] [address] Basophils/100 WBC (Bld) 0.6 % Normal [facility] Comment on above: Order Comment: Speci men Type: BLOOD SPECIMENOrdering Facility: [facility] Address: [address] [place] [address] Performed By: #### 5 7021-8 ####[facility] LABCLIA [id number] [place] [address] Differential cell count method Nom (Bld) Auto Normal [facility] Comment on above: Order Comment: Speci men Type: BLOOD SPECIMENOrdering Facility: [facility] Address: [address] [place] [address] Performed By: #### 5 7021-8 ####[facility] LABCLIA [id number] [place] [address] Eosinophils (Bld) [#/Vol] 0.19 10*3/uL Normal <0.46 [facility] Comment on above: Order Comment: Speci men Type: BLOOD SPECIMENOrdering Facility: [facility] Address: [address] [place] [address] Performed By: #### 5 7021-8 ####[facility] LABCLIA [id number] [place] [address] Eosinophils/100 WBC (Bld) 5.7 % Normal [facility] Comment on above: Order Comment: Speci men Type: BLOOD SPECIMENOrdering Facility: [facility] Address: [address] [place] [address] Performed By: #### 5 7021-8 ####[facility] LABCLIA [id number] [place] [address] Erythrocyte distribution width (RBC) [Ratio] 13.3 % Normal 11.5-15.0 [facility] Comment on above: Order Comment: Speci men Type: BLOOD SPECIMENOrdering Facility: [facility] Address: [address] [place] [address] Performed By: #### 5 7021-8 ####[facility] LABCLIA [id number] [place] [address] Hematocrit (Bld) [Volume fraction] 27.5 % Low 39.0-51.0 [facility] Comment on above: Order Comment: Speci men Type: BLOOD SPECIMENOrdering Facility: [facility] Address: [address] [place] [address] Performed By: #### 5 7021-8 ####[facility] LABIA [id number] [place] [address] Hemoglobin (Bld) [Mass/Vol] 8.7 g/dL Low 13.0-17.0 [facility] Comment on above: Order Comment: Speci men Type: BLOOD SPECIMENOrdering Facility: [facility] Address: [address] [place] [address] Performed By: #### 5 7021-8 ####[facility] LABCLIA [id number] [place] [address] Immature granulocytes (Bld) [#/Vol] 10*3/uL Normal <0.10 [facility] Comment on above: Order Comment: Speci men Type: BLOOD SPECIMENOrdering Facility: [facility] Address: [address] [place] [address] Performed By: #### 5 7021-8 ####[facility] LABCLIA [id number] [place] [address] Immature granulocytes/100 WBC (Bld) 0.3 % Normal [facility] Comment on above: Order Comment: Speci men Type: BLOOD SPECIMENOrdering Facility: [facility] Address: [address] [place] [address] Performed By: #### 5 7021-8 ####[facility] LABCLIA [id number] [place] [address] Lymphocytes (Bld) [#/Vol] 0.83 10*3/uL Low 1.00-4.00 [facility] Comment on above: Order Comment: Speci men Type: BLOOD SPECIMENOrdering Facility: [facility] Address: [address] [place] [address] Performed By: #### 5 7021-8 ####[facility] LABCLIA [id number] [place] [address] Lymphocytes/100 WBC (Bld) 24.9 % Normal [facility] Comment on above: Order Comment: Speci men Type: BLOOD SPECIMENOrdering Facility: [facility] Address: [address] [place] [address] Performed By: #### 5 7021-8 ####[facility] LABCLIA [id number] [place] [address] MCH (RBC) [Entitic mass] 34.1 pg High 26.0-34.0 [facility] Comment on above: Order Comment: Speci men Type: BLOOD SPECIMENOrdering Facility: [facility] Address: [address] [place] [address] Performed By: #### 5 7021-8 ####[facility] LABCLIA [id number] [place] [address] MCHC (RBC) [Mass/Vol] 31.6 g/dL Normal 30.5-36.0 [facility] Comment on above: Order Comment: Speci men Type: BLOOD SPECIMENOrdering Facility: [facility] Address: [address] [place] [address] Performed By: #### 5 7021-8 ####[facility] LABCLIA [id number] [place] [address] MCV (RBC) [Entitic vol] 107.8 fL High 80.0-100.0 [facility] Comment on above: Order Comment: Speci men Type: BLOOD SPECIMENOrdering Facility: [facility] Address: [address] [place] [address] Performed By: #### 5 7021-8 ####[facility] LABCLIA [id number] [place] [address] Monocytes (Bld) [#/Vol] 0.41 10*3/uL Normal <0.87 [facility] Comment on above: Order Comment: Speci men Type: BLOOD SPECIMENOrdering Facility: [facility] Address: [address] [place] [address] Performed By: #### 5 7021-8 ####[facility] LABCLIA [id number] [place] [address] Monocytes/100 WBC (Bld) 12.3 % Normal [facility] Comment on above: Order Comment: Speci men Type: BLOOD SPECIMENOrdering Facility: [facility] Address: [address] [place] [address] Performed By: #### 5 7021-8 ####[facility] LABCLIA [id number] [place] [address] Neutrophils (Bld) [#/Vol] 1.88 10*3/uL Normal 1.45-7.50 [facility] Comment on above: Order Comment: Speci men Type: BLOOD SPECIMENOrdering Facility: [facility] Address: [address] [place] [address] Performed By: #### 5 7021-8 ####[facility] LABCLIA [id number] [place] [address] Neutrophils/100 WBC (Bld) 56.2 % Normal [facility] Comment on above: Order Comment: Speci men Type: BLOOD SPECIMENOrdering Facility: [facility] Address: [address] [address] Performed By: #### 5 7021-8 ####[facility] LABCLIA [id number] [place] [address] Nucleated RBC (Bld) [#/Vol] 10*3/uL Normal <0.01 [facility] Comment on above: Order Comment: Speci men Type: BLOOD SPECIMENOrdering Facility: [facility] Address: [address] [address] Performed By: #### 5 7021-8 ####[facility] LABCLIA [id number] [place] [address] Nucleated RBC/100 WBC (Bld) [Ratio] 0.0 /100 WBC Normal [facility] Comment on above: Order Comment: Speci men Type: BLOOD SPECIMENOrdering Facility: [facility] Address: [address] [place] [address] Performed By: #### 5 7021-8 ####[facility] LABIA [id number] [place] [address] Platelet mean volume (Bld) [Entitic vol] 8.8 fL Low 9.0-12.7 [facility] Comment on above: Order Comment: Speci men Type: BLOOD SPECIMENOrdering Facility: [facility] Address: [address] Performed By: #### 5 7021-8 ####[facility] LABCLIA [id number] [place] [address] Platelets (Bld) [#/Vol] 231 10*3/uL Normal 150-400 [facility] Comment on above: Order Comment: Speci men Type: BLOOD SPECIMENOrdering Facility: [facility] Address: [address] [place], [place] [address] Performed By: #### 5 7021-8 ####[facility] LABCLIA [id number] [place] [address] RBC (Bld) [#/Vol] 2.55 10*6/uL Low 4.20-6.00 [facility] Comment on above: Order Comment: Speci men Type: BLOOD SPECIMENOrdering Facility: [facility] Address: [address] [place] [address] Performed By: #### 5 7021-8 ####[facility] LABCLIA [id number] [place] [address] WBC (Bld) [#/Vol] 3.34 10*3/uL Low 3.70-11.00 [facility] Comment on above: Order Comment: Speci men Type: BLOOD SPECIMENOrdering Facility: [facility] Address: [address] [place] [address] Performed By: #### 5 7021-8 ####[facility] LABCLIA [id number] [place] [address] CNNURSEon 07-03-2022 CNNURSE Normal [facility] CNOVSPon 07-03-2022 CNOVSP Normal [facility] CT ABD/PEL W IVCONon 023 CT ABD/PEL W IVCON Normal [facility] CT CHEST W IVCONon 3 CT CHEST W IVCON Normal [facility] Cancer Ag19-9 SerPl-aCncon 0 07-03-2022 Cancer Ag 19-9 Qn 9.0 [arb'U]/mL Normal <36.0 [facility] Comment on above: Order Comment: Speci men Type: BLOOD SPECIMENOrdering Facility: [facility] Address: [address] [place], [place] [address] Result Comment: [facility] er antigen 19-9 test is used as an aid in monitoring response to treatment or recurrence in patients with established pancreatic, hepatobiliary, or gastrointestinal malignancies. Clinical correlation is required.The CA 19-9 Antigen test was performed using the [employer]way[employer] DXI paramagnetic particle chemiluminescent immunoassay method. Results obtained with different assay methods or kits cannot be used interchangeably. Performed By: #### 2 4108-3 ####[facility] LABCLIA [id number] [facility] [id number] [place] Comprehensive metabolic 2000 panelon 07-03-2022 Albumin [Mass/Vol] 3.5 g/dL Low 3.9-4.9 [facility] Comment on above: Order Comment: Speci men Type: BLOOD SPECIMENOrdering Facility: [facility] Address: [address] [address] Performed By: #### 2 4323-8 ####[facility] LABIA [id number] [place] [address] ALP [Catalytic activity/Vol] 140 U/L High 38-113 [facility] Comment on above: Order Comment: Speci men Type: BLOOD SPECIMENOrdering Facility: [facility] Address: [address] [address] Performed By: #### 2 4323-8 ####[facility] LABCLIA [id number] [place] [address] ALT [Catalytic activity/Vol] 32 U/L Normal 10-54 [facility] Comment on above: Order Comment: Speci men Type: BLOOD SPECIMENOrdering Facility: [facility] Address: [address] [address] Performed By: #### 2 4323-8 ####[facility] LABCLIA [id number] [place] [address] Anion gap [Moles/Vol] 7 mmol/L Low 9-18 [facility] Comment on above: Order Comment: Speci men Type: BLOOD SPECIMENOrdering Facility: [facility] Address: [address] [address] Performed By: #### 2 4323-8 ####[facility] LABCLIA [id number] [place] [address] AST [Catalytic activity/Vol] 27 U/L Normal 14-40 [facility] Comment on above: Order Comment: Speci men Type: BLOOD SPECIMENOrdering Facility: [facility] Address: [address] [address] Performed By: #### 2 4323-8 ####[facility] LABCLIA [id number] [place] [address] Bilirubin [Mass/Vol] 0.2 mg/dL Normal 0.2-1.3 [facility] Comment on above: Order Comment: Speci men Type: BLOOD SPECIMENOrdering Facility: [facility] Address: [address] [place] [address] Performed By: #### 2 4323-8 ####[facility] LABCLIA [id number] [place] [address] Calcium [Mass/Vol] 8.5 mg/dL Normal 8.5-10.2 [facility] Comment on above: Order Comment: Speci men Type: BLOOD SPECIMENOrdering Facility: [facility] Address: [address] [address] Performed By: #### 2 4323-8 ####[facility] LABCLIA [id number] [place] [address] Chloride [Moles/Vol] 102 mmol/L Normal 97-105 [facility] Comment on above: Order Comment: Speci men Type: BLOOD SPECIMENOrdering Facility: [facility] Address: [address] [address] Performed By: #### 2 4323-8 ####[facility] LABCLIA [id number] [place] [address] CO2 [Moles/Vol] 21 mmol/L Low 22-30 [facility] Comment on above: Order Comment: Speci men Type: BLOOD SPECIMENOrdering Facility: [facility] Address: [address] [address] Performed By: #### 2 4323-8 ####[facility] LABCLIA [id number] [place] [address] Creatinine [Mass/Vol] 0.70 mg/dL Low 0.73-1.22 [facility] Comment on above: Order Comment: Frank farhan Type: BLOOD SPECIMENOrdering Facility: [facility] Address: [address] [place] [address] Performed By: #### 2 4323-8 ####[facility] LABCLIA [id number] [place] [address] ESTIMATED GLOMERULAR FILTRATION RATE 102 mL/min/1.73m??? Normal >=60 [facility] Comment on above: Order Comment: Frank real Type: BLOOD SPECIMENOrdering Facility: [facility] Address: [address] [place] [address] Result Comment: Megan mated Glomerular Filtration Rate [...] actual GFR. Performed By: #### 2 4323-8 ####[facility] LABCLIA [id number] [place] [address] Glucose [Mass/Vol] 292 mg/dL High 74-99 [facility] Comment on above: Order Comment: Wolfgangabiola real Type: BLOOD SPECIMENOrdering Facility: [facility] Address: [address] [place] [address] Result Comment: The [place] [employer] (ADA) provides guidance for cutoff [...] Standards of Medical Care in Diabetes 2016, [place] [employer]. Diabetes Care. 2016.39(Suppl 1). Performed By: #### 2 4323-8 ####[facility] LABCLIA [id number] [place] [address] Potassium [Moles/Vol] 4.4 mmol/L Normal 3.7-5.1 [facility] Comment on above: Order Comment: Speci men Type: BLOOD SPECIMENOrdering Facility: [facility] Address: [address] [address] Performed By: #### 2 4323-8 ####[facility] LABCLIA [id number] [place] [address] Protein [Mass/Vol] 6.3 g/dL Normal 6.3-8.0 [facility] Comment on above: Order Comment: Speci men Type: BLOOD SPECIMENOrdering Facility: [facility] Address: [address] [address] Performed By: #### 2 4323-8 ####[facility] LABCLIA [id number] [place] [address] Sodium [Moles/Vol] 130 mmol/L Low 136-144 [facility] Comment on above: Order Comment: Speci men Type: BLOOD SPECIMENOrdering Facility: [facility] Address: [address] [address] Performed By: #### 2 4323-8 ####[facility] LABCLIA [id number] [place] [address] Urea nitrogen [Mass/Vol] 23 mg/dL Normal 9-24 [facility] Comment on above: Order Comment: Speci men Type: BLOOD SPECIMENOrdering Facility: [facility] Address: [address] [address] Performed By: #### 2 4323-8 ####[facility] LABCLIA [id number] [place] [address] Ferritin SerPl-mCncon 2022 Ferritin [Mass/Vol] 243.0 ng/mL Normal 30.3-565.7 [facility] Comment on above: Order Comment: Speci men Type: BLOOD SPECIMENOrdering Facility: [facility] Address: [address] [place] [address] Performed By: #### 5 0190-8, 2275-4, 9, 2284-01 ####[facility] LABCLIA [id number] [place] [address] [place] Folate SerPl-mCncon 07-03-19 Folate [Mass/Vol] 4.1 ng/mL Low >4.[address] [facility] Comment on above: Order Comment: Speci men Type: BLOOD SPECIMENOrdering Facility: [facility] Address: [address] [place] [address] Performed By: #### 5 0190-8, 4, 9, 2284-01 ####[facility] LABCLIA [id number] [place] [address] [place] Iron and Iron binding capaci ty panelon 07-03-2022 Iron [Mass/Vol] 30 ug/dL Low 41-186 [facility] Comment on above: Order Comment: Speci men Type: BLOOD SPECIMENOrdering Facility: [facility] Address: [address] [place], [place] [address] Performed By: #### 5 0190-8, 2275-4, 9, 2284-01 ####[facility] LABCLIA [id number] [place] [address] [place] Iron binding capacity [Mass/Vol] 212 ug/dL Low 232-386 [facility] Comment on above: Order Comment: Speci men Type: BLOOD SPECIMENOrdering Facility: [facility] Address: [address] [place], [place] [address] Performed By: #### 5 0190-8, 2275-4, 2132-02, 2284-01 ####[facility] LABCLIA [id number] [place] [address] [place] Iron/TIBC [Molar ratio] 14.2 % Low 15.0-57.0 [facility] Comment on above: Order Comment: Speci men Type: BLOOD SPECIMENOrdering Facility: [facility] Address: [address] Performed By: #### 5 0190-8, 2275-09, 2132-02, 2284-01 ####[facility] LABCLIA [id number] [place] [address] [place] Vit [facility]12 [facility] Cobalamin (Vitamin B12) [Mass/Vol] 465 pg/mL Normal 232-1245 [facility] Comment on above: Order Comment: Speci men Type: BLOOD SPECIMENOrdering Facility: [facility] Address: [address] Performed By: #### 5 0190-8, 2275-09, 2132-02, 2284-01 ####[facility] LABCLIA [id number] [place] [address] [place] CBC W Auto Differential pane l (Bld)on 06-06-2022 Anisocytosis Ql (Bld) Present Normal [facility] Comment on above: Order Comment: Speci men Type: BLOOD SPECIMENOrdering Facility: [facility] Address: [address] Performed By: #### 5 7021-8 ####[facility] LABCLIA [id number] [place], [place] [address]YJNBMCEXA[facility] LABCLIA [id number] [place] [address] [place] Basophils (Bld) [#/Vol] 10*3/uL Normal <0.11 [facility] Comment on above: Order Comment: Speci men Type: BLOOD SPECIMENOrdering Facility: [facility] Address: [address] [place] [address] Performed By: #### 5 7021-8 ####[facility] LABCLIA [id number] [address] LABCLIA [id number] [place] [address] [place] Basophils/100 WBC (Bld) 0.7 % Normal [facility] Comment on above: Order Comment: Speci men Type: BLOOD SPECIMENOrdering Facility: [facility] Address: [address] [place] [address] Performed By: #### 5 7021-8 ####[facility] LABCLIA [id number] [address] LABCLIA [id number] [place] [address] [place] CBC W Differential panel, method unspecified (Bld) Done Normal [facility] Comment on above: Order Comment: Speci men Type: BLOOD SPECIMENOrdering Facility: [facility] Address: [address] [place] [address] Performed By: #### 5 7021-8 ####[facility] LABCLIA [id number] [address] LABCLIA [id number] [place] [address] [place] Differential cell count method Nom (Bld) Auto Normal [facility] Comment on above: Order Comment: Speci men Type: BLOOD SPECIMENOrdering Facility: [facility] Address: [address] [place] [address] Performed By: #### 5 7021-8 ####[facility] LABCLIA [id number] [address] LABCLIA [id number] [place] [address] [place] Eosinophils (Bld) [#/Vol] 0.16 10*3/uL Normal <0.46 [facility] Comment on above: Order Comment: Speci men Type: BLOOD SPECIMENOrdering Facility: [facility] Address: [address] [place] [address] Performed By: #### 5 7021-8 ####[facility] LABCLIA [id number] [address] LABCLIA [id number] [place] [address] [place] Eosinophils/100 WBC (Bld) 5.3 % Normal [facility] Comment on above: Order Comment: Speci men Type: BLOOD SPECIMENOrdering Facility: [facility] Address: [address] [place] [address] Performed By: #### 5 7021-8 ####[facility] LABCLIA [id number] [address] LABCLIA [id number] [place] [address] [place] Erythrocyte distribution width (RBC) [Ratio] 15.1 % High 11.5-15.0 [facility] Comment on above: Order Comment: Speci men Type: BLOOD SPECIMENOrdering Facility: [facility] Address: [address] [place] [address] Performed By: #### 5 7021-8 ####[facility] LABCLIA [id number] [address] LABCLIA [id number] [place] [address] [place] Hematocrit (Bld) [Volume fraction] 28.5 % Low 39.0-51.0 [facility] Comment on above: Order Comment: Speci men Type: BLOOD SPECIMENOrdering Facility: [facility] Address: [address] [address] Performed By: #### 5 7021-8 ####[facility] LABCLIA [id number] [address] LABCLIA [id number] [place] [address] [place] Hemoglobin (Bld) [Mass/Vol] 9.1 g/dL Low 13.0-17.0 [facility] Comment on above: Order Comment: Speci men Type: BLOOD SPECIMENOrdering Facility: [facility] Address: [address] [place] [address] Performed By: #### 5 7021-8 ####[facility] LABCLIA [id number] [address] LABCLIA [id number] [place] [address] [place] Immature granulocytes (Bld) [#/Vol] 10*3/uL Normal <0.10 [facility] Comment on above: Order Comment: Speci men Type: BLOOD SPECIMENOrdering Facility: [facility] Address: [address] [place] [address] Performed By: #### 5 7021-8 ####[facility] LABCLIA [id number] [address] LABCLIA [id number] [place] [address] [place] Immature granulocytes/100 WBC (Bld) 0.3 % Normal [facility] Comment on above: Order Comment: Speci men Type: BLOOD SPECIMENOrdering Facility: [facility] Address: [address] [place] [address] Performed By: #### 5 7021-8 ####[facility] LABCLIA [id number] [address] LABCLIA [id number] [place] [address] [place] Lymphocytes (Bld) [#/Vol] 1.20 10*3/uL Normal 1.00-4.00 [facility] Comment on above: Order Comment: Speci men Type: BLOOD SPECIMENOrdering Facility: [facility] Address: [address] [place] [address] Performed By: #### 5 7021-8 ####[facility] LABCLIA [id number] [address] LABCLIA [id number] [place] [address] [place] Lymphocytes/100 WBC (Bld) 39.9 % Normal [facility] Comment on above: Order Comment: Speci men Type: BLOOD SPECIMENOrdering Facility: [facility] Address: [address] [place] [address] Performed By: #### 5 7021-8 ####[facility] LABCLIA [id number] [address] LABCLIA [id number] [place] [address] [place] MCH (RBC) [Entitic mass] 35.3 pg High 26.0-34.0 [facility] Comment on above: Order Comment: Speci men Type: BLOOD SPECIMENOrdering Facility: [facility] Address: [address] [place] [address] Performed By: #### 5 7021-8 ####[facility] LABCLIA [id number] [address] LABCLIA [id number] [place] [address] [place] MCHC (RBC) [Mass/Vol] 31.9 g/dL Normal 30.5-36.0 [facility] Comment on above: Order Comment: Speci men Type: BLOOD SPECIMENOrdering Facility: [facility] Address: [address] [place] [address] Performed By: #### 5 7021-8 ####[facility] LABCLIA [id number] [address] LABCLIA [id number] [place] [address] [place] MCV (RBC) [Entitic vol] 110.5 fL High 80.0-100.0 [facility] Comment on above: Order Comment: Speci men Type: BLOOD SPECIMENOrdering Facility: [facility] Address: [address] [place] [address] Performed By: #### 5 7021-8 ####[facility] LABCLIA [id number] [address] LABCLIA [id number] [place] [address] [place] Monocytes (Bld) [#/Vol] 0.42 10*3/uL Normal <0.87 [facility] Comment on above: Order Comment: Speci men Type: BLOOD SPECIMENOrdering Facility: [facility] Address: [address] [place] [address] Performed By: #### 5 7021-8 ####[facility] LABCLIA [id number] [address] LABCLIA [id number] [place] [address] [place] Monocytes/100 WBC (Bld) 14.0 % Normal [facility] Comment on above: Order Comment: Speci men Type: BLOOD SPECIMENOrdering Facility: [facility] Address: [address] [place] [address] Performed By: #### 5 7021-8 ####[facility] LABCLIA [id number] [address] LABCLIA [id number] [place] [address] [place] Neutrophils (Bld) [#/Vol] 1.20 10*3/uL Low 1.45-7.50 [facility] Comment on above: Order Comment: Speci men Type: BLOOD SPECIMENOrdering Facility: [facility] Address: [address] [place] [address] Performed By: #### 5 7021-8 ####[facility] LABCLIA [id number] [address] LABCLIA [id number] [place] [address] [place] Neutrophils/100 WBC (Bld) 39.8 % Normal [facility] Comment on above: Order Comment: Speci men Type: BLOOD SPECIMENOrdering Facility: [facility] Address: [address] [place] [address] Result Comment: Revi ewed Performed By: #### 5 7021-8 ####[facility] LABCLIA [id number] [address] LABCLIA [id number] [place] [address] [place] Nucleated RBC (Bld) [#/Vol] 10*3/uL Normal <0.01 [facility] Comment on above: Order Comment: Speci men Type: BLOOD SPECIMENOrdering Facility: [facility] Address: [address] [place] [address] Performed By: #### 5 7021-8 ####[facility] LABCLIA [id number] [address] LABCLIA [id number] [place] [address] [place] Nucleated RBC/100 WBC (Bld) [Ratio] 0.0 /100 WBC Normal [facility] Comment on above: Order Comment: Speci men Type: BLOOD SPECIMENOrdering Facility: [facility] Address: [address] Performed By: #### 5 7021-8 ####[facility]AD[facility] LABCLIA [id number] [address] LABCLIA [id number] [place] [address] [place] Ovalocytes LM Ql (Bld) Few Normal [facility] Comment on above: Order Comment: Speci men Type: BLOOD SPECIMENOrdering Facility: [facility] Address: [address] Performed By: #### 5 7021-8 ####[facility] LABCLIA [id number] [address] LABCLIA [id number] [place] [address] [place] Platelet mean volume (Bld) [Entitic vol] 9.1 fL Normal 9.0-12.7 [facility] Comment on above: Order Comment: Speci men Type: BLOOD SPECIMENOrdering Facility: [facility] Address: [address] Performed By: #### 5 7021-8 ####[facility] LABCLIA [id number] [address] LABCLIA [id number] [place] [address] [place] Platelets (Bld) [#/Vol] 234 10*3/uL Normal 150-400 [facility] Comment on above: Order Comment: Speci men Type: BLOOD SPECIMENOrdering Facility: [facility] Address: [address] [place], [place] [address] Performed By: #### 5 7021-8 ####[facility] LABCLIA [id number] [address] LABCLIA [id number] [place] [address] [place] Platelets Estimate (Bld) [#/Vol] Adequate Normal [facility] Comment on above: Order Comment: Speci men Type: BLOOD SPECIMENOrdering Facility: [facility] Address: [address] [place] [address] Performed By: #### 5 7021-8 ####[facility] LABCLIA [id number] [address] LABCLIA [id number] [place] [address] [place] Polychromasia LM Ql (Bld) Slight Normal [facility] Comment on above: Order Comment: Speci men Type: BLOOD SPECIMENOrdering Facility: [facility] Address: [address] [place] [address] Performed By: #### 5 7021-8 ####[facility] LABCLIA [id number] [address] LABCLIA [id number] [place] [address] [place] RBC (Bld) [#/Vol] 2.58 10*6/uL Low 4.20-6.00 [facility] Comment on above: Order Comment: Speci men Type: BLOOD SPECIMENOrdering Facility: [facility] Address: [address] [place] [address] Performed By: #### 5 7021-8 ####[facility] LABCLIA [id number] [address] LABCLIA [id number] [place] [address] [place] RED CELL MORPH Reviewed: see result s of individual morphologies Normal [facility] Comment on above: Order Comment: Speci men Type: BLOOD SPECIMENOrdering Facility: [facility] Address: [address] [place] [address] Performed By: #### 5 7021-8 ####[facility] LABCLIA [id number] [place], [place] [address] LABCLIA [id number] [place] [address] [place] WBC (Bld) [#/Vol] 3.01 10*3/uL Low 3.70-11.00 [facility] Comment on above: Order Comment: Speci men Type: BLOOD SPECIMENOrdering Facility: [facility] Address: [address] [address] Performed By: #### 5 7021-8 ####[facility] LABCLIA [id number] [address] [address] LABCLIA [id number] [place] [address] [place] CNNURSEon 06-06-2022 CNNURSE Normal [facility] CNOVSPon 06-06-2022 CNOVSP Normal [facility] Comprehensive metabolic 2000 panelon 06-06-2022 Albumin [Mass/Vol] 3.5 g/dL Low 3.9-4.9 [facility] Comment on above: Order Comment: Speci men Type: BLOOD SPECIMENOrdering Facility: [facility] Address: [address] [address] Performed By: #### 2 4323-8 ####[facility] LABCLIA [id number] [place] [address] ALP [Catalytic activity/Vol] 148 U/L High 38-113 [facility] Comment on above: Order Comment: Speci men Type: BLOOD SPECIMENOrdering Facility: [facility] Address: [address] Performed By: #### 2 4323-8 ####[facility] LABCLIA [id number] [place] [address] ALT [Catalytic activity/Vol] 43 U/L Normal 10-54 [facility] Comment on above: Order Comment: Speci men Type: BLOOD SPECIMENOrdering Facility: [facility] Address: [address] [address] Performed By: #### 2 4323-8 ####[facility] LABCLIA [id number] [place] [address] Anion gap [Moles/Vol] 8 mmol/L Low 9-18 [facility] Comment on above: Order Comment: Speci men Type: BLOOD SPECIMENOrdering Facility: [facility] Address: [address] [address] Performed By: #### 2 4323-8 ####[facility] LABCLIA [id number] [place] [address] AST [Catalytic activity/Vol] 37 U/L Normal 14-40 [facility] Comment on above: Order Comment: Speci men Type: BLOOD SPECIMENOrdering Facility: [facility] Address: [address] [address] Performed By: #### 2 4323-8 ####[facility] LABCLIA [id number] [place] [address] Bilirubin [Mass/Vol] 0.4 mg/dL Normal 0.2-1.3 [facility] Comment on above: Order Comment: Speci men Type: BLOOD SPECIMENOrdering Facility: [facility] Address: [address] [address] Performed By: #### 2 4323-8 ####[facility] LABCLIA [id number] [place] [address] Calcium [Mass/Vol] 8.8 mg/dL Normal 8.5-10.2 [facility] Comment on above: Order Comment: Speci men Type: BLOOD SPECIMENOrdering Facility: [facility] Address: [address] [place] [address] Performed By: #### 2 4323-8 ####[facility] LABCLIA [id number] [place] [address] Chloride [Moles/Vol] 106 mmol/L High 97-105 [facility] Comment on above: Order Comment: Speci men Type: BLOOD SPECIMENOrdering Facility: [facility] Address: [address] [place] [address] Performed By: #### 2 4323-8 ####[facility] LABCLIA [id number] [place] [address] CO2 [Moles/Vol] 22 mmol/L Normal 22-30 [facility] Comment on above: Order Comment: Speci men Type: BLOOD SPECIMENOrdering Facility: [facility] Address: [address] [place] [address] Performed By: #### 2 4323-8 ####[facility] LABCLIA [id number] [place] [address] Creatinine [Mass/Vol] 0.75 mg/dL Normal 0.73-1.22 [facility] Comment on above: Order Comment: Speci men Type: BLOOD SPECIMENOrdering Facility: [facility] Address: [address] [place] [address] Performed By: #### 2 4323-8 ####[facility] LABCLIA [id number] [place] [address] ESTIMATED GLOMERULAR FILTRATION RATE 101 mL/min/1.73m??? Normal >=60 [facility] Comment on above: Order Comment: Speci men Type: BLOOD SPECIMENOrdering Facility: [facility] Address: [address] [place] [address] Result Comment: Megan mated Glomerular Filtration Rate [...] actual GFR. Performed By: #### 2 4323-8 ####[facility] LABCLIA [id number] [place] [address] Glucose [Mass/Vol] 106 mg/dL High 74-99 [facility] Comment on above: Order Comment: Speci men Type: BLOOD SPECIMENOrdering Facility: [facility] Address: [address] [place] [address] Result Comment: The [place] [employer] (ADA) provides guidance for cutoff [...] Standards of Medical Care in Diabetes 2016, [place] [employer]. Diabetes Care. 2016.39(Suppl 1). Performed By: #### 2 4323-8 ####[facility] LABCLIA [id number] [place] [address] Potassium [Moles/Vol] 4.6 mmol/L Normal 3.7-5.1 [facility] Comment on above: Order Comment: Speci men Type: BLOOD SPECIMENOrdering Facility: [facility] Address: [address] [place] [address] Performed By: #### 2 4323-8 ####[facility] LABCLIA [id number] [place] [address] Protein [Mass/Vol] 6.4 g/dL Normal 6.3-8.0 [facility] Comment on above: Order Comment: Speci men Type: BLOOD SPECIMENOrdering Facility: [facility] Address: [address] [place] [address] Performed By: #### 2 4323-8 ####[facility] LABCLIA [id number] [place] [address] Sodium [Moles/Vol] 136 mmol/L Normal 136-144 [facility] Comment on above: Order Comment: Speci men Type: BLOOD SPECIMENOrdering Facility: [facility] Address: [address] [place] [address] Performed By: #### 2 4323-8 ####[facility] LABCLIA [id number] [place] [address] Urea nitrogen [Mass/Vol] 20 mg/dL Normal 9-24 [facility] Comment on above: Order Comment: Speci men Type: BLOOD SPECIMENOrdering Facility: [facility] Address: [address] [place] [address] Performed By: #### 2 4323-8 ####[facility] LABCLIA [id number] [place] [address] Ferritin SerPl-ncon 2021 Ferritin [Mass/Vol] 427.0 ng/mL Normal 30.3-565.7 [facility] Comment on above: Order Comment: Speci men Type: BLOOD SPECIMENOrdering Facility: [facility] Address: [address] [place] [address] Performed By: #### 5 0190-8, 9, 2275-4, 8 ####[facility] LABCLIA [id number] [place] [id number] [place] Folate SerPl-mCncon 06-06-20 Folate [Mass/Vol] 6.5 ng/mL Normal >4.[address] [facility] Comment on above: Order Comment: Speci men Type: BLOOD SPECIMENOrdering Facility: [facility] Address: [address] [place] [address] Performed By: #### 5 0190-8, 9, 2275-4, 2283-8 ####[facility] LABCLIA [id number] [place] [id number] [place] Iron and Iron binding capaci ty panelon 06-06-2022 Iron [Mass/Vol] 39 ug/dL Low 41-186 [facility] Comment on above: Order Comment: Speci men Type: BLOOD SPECIMENOrdering Facility: [facility] Address: [address] [place] [address] Performed By: #### 5 0190-8, 9, 2275-09, 2284-01 ####[facility] LABCLIA [id number] [address] [place] [facility] Iron binding capacity [Mass/Vol] 228 ug/dL Low 232-386 [facility] Comment on above: Order Comment: Speci men Type: BLOOD SPECIMENOrdering Facility: [facility] Address: [address] [place] [address] Performed By: #### 5 0190-8, 2132-02, 2275-09, 2284-01 ####[facility] LABCLIA [id number] [address] STATES OF [facility] Iron/TIBC [Molar ratio] 17.1 % Normal 15.0-57.0 [facility] Comment on above: Order Comment: Speci men Type: BLOOD SPECIMENOrdering Facility: [facility] Address: [address] [place] [address] Performed By: #### 5 0190-8, 9, 2275-09, 2284-01 ####[facility] LABIA [id number] [address] [place] Vit B[facility] Cobalamin (Vitamin B12) [Mass/Vol] 517 pg/mL Normal 232-1245 [facility] Comment on above: Order Comment: Speci men Type: BLOOD SPECIMENOrdering Facility: [facility] Address: [address] [place], [place] [address] Performed By: #### 5 0190-8, 9, 2275-09, 2284-01 ####[facility] LABCLIA [id number] [facility] [id number] [id number] [place] XR LSPINE MIN [...] REBA REID Date: 2022-05-13 07:55 Normal [facility] CBC W Auto Differential pane l (Bld)on 05-08-2022 Basophils (Bld) [#/Vol] 10*3/uL Normal <0.11 [facility] Comment on above: Order Comment: Speci men Type: BLOOD SPECIMENOrdering Facility: [facility] Address: [address] [place] [address] Performed By: #### 5 7021-8, 63341-8 ####[facility] LABIA [id number] [place] [address] Basophils/100 WBC (Bld) 0.3 % Normal [facility] Comment on above: Order Comment: Speci men Type: BLOOD SPECIMENOrdering Facility: [facility] Address: [address] [place] [address] Performed By: #### 5 7021-8, 15830-7 ####[facility] LABIA [id number] [place] [address] Differential cell count method Nom (Bld) Auto Normal [facility] Comment on above: Order Comment: Speci men Type: BLOOD SPECIMENOrdering Facility: [facility] Address: [address] [address] Performed By: #### 5 7021-8, 72419-6 ####[facility] LABCLIA [id number] [place] [address] Eosinophils (Bld) [#/Vol] 0.13 10*3/uL Normal <0.46 [facility] Comment on above: Order Comment: Speci men Type: BLOOD SPECIMENOrdering Facility: [facility] Address: [address] [place] [address] Performed By: #### 5 7021-8, 73882-1 ####[facility] LABCLIA [id number] [place] [address] Eosinophils/100 WBC (Bld) 3.9 % Normal [facility] Comment on above: Order Comment: Speci men Type: BLOOD SPECIMENOrdering Facility: [facility] Address: [address] [place] [address] Performed By: #### 5 7021-8, 68547-8 ####[facility] LABCLIA [id number] [place] [address] Erythrocyte distribution width (RBC) [Ratio] 15.9 % High 11.5-15.0 [facility] Comment on above: Order Comment: Speci men Type: BLOOD SPECIMENOrdering Facility: [facility] Address: [address] [place] [address] Performed By: #### 5 7021-8, 68985-5 ####[facility] LABCLIA [id number] [place] [address] Hematocrit (Bld) [Volume fraction] 30.2 % Low 39.0-51.0 [facility] Comment on above: Order Comment: Speci men Type: BLOOD SPECIMENOrdering Facility: [facility] Address: [address] [place] [address] Performed By: #### 5 7021-8, 16373-1 ####[facility] LABCLIA [id number] [place] [address] Hemoglobin (Bld) [Mass/Vol] 9.4 g/dL Low 13.0-17.0 [facility] Comment on above: Order Comment: Speci men Type: BLOOD SPECIMENOrdering Facility: [facility] Address: [address] Performed By: #### 5 7021-8, 60875-1 ####[facility] LABCLIA [id number] [place] [address] Immature granulocytes (Bld) [#/Vol] 10*3/uL Normal <0.10 [facility] Comment on above: Order Comment: Speci men Type: BLOOD SPECIMENOrdering Facility: [facility] Address: [address] [address] Performed By: #### 5 7021-8, 22599-4 ####JOSE MANUELMEALICIA [facility] LABCLIA [id number] [place] [address] Immature granulocytes/100 WBC (Bld) 0.6 % Normal [facility] Comment on above: Order Comment: Speci men Type: BLOOD SPECIMENOrdering Facility: [facility] Address: [address] [place], [place] [address] Performed By: #### 5 7021-8, 81513-9 ####[facility] LABCLIA [id number] [place] [address] Lymphocytes (Bld) [#/Vol] 1.29 10*3/uL Normal 1.00-4.00 [facility] Comment on above: Order Comment: Speci men Type: BLOOD SPECIMENOrdering Facility: [facility] Address: [address] Performed By: #### 5 7021-8, 53794-1 ####[facility] LABIA [id number] [place] [address] Lymphocytes/100 WBC (Bld) 38.5 % Normal [facility] Comment on above: Order Comment: Speci men Type: BLOOD SPECIMENOrdering Facility: [facility] Address: [address] [place], [place] [address] Performed By: #### 5 7021-8, 60473-1 ####[facility] LABCLIA [id number] [place] [address] MCH (RBC) [Entitic mass] 33.2 pg Normal 26.0-34.0 [facility] Comment on above: Order Comment: Speci men Type: BLOOD SPECIMENOrdering Facility: [facility] Address: [address] [place] [address] Performed By: #### 5 7021-8, 88472-3 ####[facility] LABCLIA [id number] [place] [address] MCHC (RBC) [Mass/Vol] 31.1 g/dL Normal 30.5-36.0 [facility] Comment on above: Order Comment: Speci men Type: BLOOD SPECIMENOrdering Facility: [facility] Address: [address] [place] [address] Performed By: #### 5 7021-8, 34773-6 ####[facility] LABIA [id number] [place] [address] MCV (RBC) [Entitic vol] 106.7 fL High 80.0-100.0 [facility] Comment on above: Order Comment: Speci men Type: BLOOD SPECIMENOrdering Facility: [facility] Address: [address] [place] [address] Performed By: #### 5 7021-8, 86234-6 ####[facility] LABIA [id number] [place] [address] Monocytes (Bld) [#/Vol] 0.41 10*3/uL Normal <0.87 [facility] Comment on above: Order Comment: Speci men Type: BLOOD SPECIMENOrdering Facility: [facility] Address: [address] [place] [address] Performed By: #### 5 7021-8, 96259-4 ####[facility] LABCLIA [id number] [place] [address] Monocytes/100 WBC (Bld) 12.2 % Normal [facility] Comment on above: Order Comment: Speci men Type: BLOOD SPECIMENOrdering Facility: [facility] Address: [address] [place] [address] Performed By: #### 5 7021-8, 79394-4 ####[facility] LABCLIA [id number] [place] [address] Neutrophils (Bld) [#/Vol] 1.49 10*3/uL Normal 1.45-7.50 [facility] Comment on above: Order Comment: Speci men Type: BLOOD SPECIMENOrdering Facility: [facility] Address: [address] [place] [address] Performed By: #### 5 7021-8, 66118-2 ####[facility] LABCLIA [id number] [place] [address] Neutrophils/100 WBC (Bld) 44.5 % Normal [facility] Comment on above: Order Comment: Speci men Type: BLOOD SPECIMENOrdering Facility: [facility] Address: [address] [place] [address] Performed By: #### 5 7021-8, 89867-8 ####[facility] LABCLIA [id number] [place] [address] Nucleated RBC (Bld) [#/Vol] 10*3/uL Normal <0.01 [facility] Comment on above: Order Comment: Speci men Type: BLOOD SPECIMENOrdering Facility: [facility] Address: [address] [place] [address] Performed By: #### 5 7021-8, 45786-7 ####[facility] LABCLIA [id number] [place] [address] Nucleated RBC/100 WBC (Bld) [Ratio] 0.0 /100 WBC Normal [facility] Comment on above: Order Comment: Speci men Type: BLOOD SPECIMENOrdering Facility: [facility] Address: [address] [place] [address] Performed By: #### 5 7021-8, 90474-2 ####[facility] LABCLIA [id number] [place] [address] Platelet mean volume (Bld) [Entitic vol] 8.7 fL Low 9.0-12.7 [facility] Comment on above: Order Comment: Speci men Type: BLOOD SPECIMENOrdering Facility: [facility] Address: [address] [place] [address] Performed By: #### 5 7021-8, 28961-3 ####[facility] LABIA [id number] [place] [address] Platelets (Bld) [#/Vol] 238 10*3/uL Normal 150-400 [facility] Comment on above: Order Comment: Speci men Type: BLOOD SPECIMENOrdering Facility: [facility] Address: [address] [place] [address] Performed By: #### 5 7021-8, 73471-2 ####[facility] LABIA [id number] [place] [address] RBC (Bld) [#/Vol] 2.83 10*6/uL Low 4.20-6.00 [facility] Comment on above: Order Comment: Speci men Type: BLOOD SPECIMENOrdering Facility: [facility] Address: [address] [place], [place] [address] Performed By: #### 5 7021-8, 13984-3 ####[facility] LABIA [id number] [place] [address] WBC (Bld) [#/Vol] 3.35 10*3/uL Low 3.70-11.00 [facility] Comment on above: Order Comment: Speci men Type: BLOOD SPECIMENOrdering Facility: [facility] Address: [address] [place] [address] Performed By: #### 5 7021-8, 12160-0 ####[facility] LABCLIA [id number] [place] [address] CNNURSEon 05-08-2022 CNNURSE Normal [facility] CNOVSPon 05-08-2022 CNOVSP Normal [facility] Comprehensive metabolic 2000 panelon 05-08-2022 Albumin [Mass/Vol] 3.7 g/dL Low 3.9-4.9 [facility] Comment on above: Order Comment: Speci men Type: BLOOD SPECIMENOrdering Facility: [facility] Address: [address] [address] Performed By: #### 2 532-0, ####[facility] LABCLIA [id number] [place] [address] ALP [Catalytic activity/Vol] 154 U/L High 38-113 [facility] Comment on above: Order Comment: Speci men Type: BLOOD SPECIMENOrdering Facility: [facility] Address: [address] Performed By: #### 2 532-0, 13739-8 ####[facility] LABCLIA [id number] [place] [address] ALT [Catalytic activity/Vol] 32 U/L Normal 10-54 [facility] Comment on above: Order Comment: Speci men Type: BLOOD SPECIMENOrdering Facility: [facility] Address: [address] Performed By: #### 2 532-0, 35187-1 ####[facility] LABCLIA [id number] [place] [address] Anion gap [Moles/Vol] 9 mmol/L Normal 9-18 [facility] Comment on above: Order Comment: Speci men Type: BLOOD SPECIMENOrdering Facility: [facility] Address: [address] Performed By: #### 2 532-0, ####[facility] LABCLIA [id number] [place] [address] AST [Catalytic activity/Vol] 30 U/L Normal 14-40 [facility] Comment on above: Order Comment: Speci men Type: BLOOD SPECIMENOrdering Facility: [facility] Address: [address] [place] [address] Performed By: #### 2 532-0, ####[facility] LABCLIA [id number] [place] [address] Bilirubin [Mass/Vol] 0.4 mg/dL Normal 0.2-1.3 [facility] Comment on above: Order Comment: Speci men Type: BLOOD SPECIMENOrdering Facility: [facility] Address: [address] [place] [address] Performed By: #### 2 532-0, ####[facility] LABCLIA [id number] [place] [address] Calcium [Mass/Vol] 8.9 mg/dL Normal 8.5-10.2 [facility] Comment on above: Order Comment: Speci men Type: BLOOD SPECIMENOrdering Facility: [facility] Address: [address] [place] [address] Performed By: #### 2 532-0, ####[facility] LABCLIA [id number] [place] [address] Chloride [Moles/Vol] 110 mmol/L High 97-105 [facility] Comment on above: Order Comment: Speci men Type: BLOOD SPECIMENOrdering Facility: [facility] Address: [address] [place] [address] Performed By: #### 2 532-0, ####[facility] LABCLIA [id number] [place] [address] CO2 [Moles/Vol] 17 mmol/L Low 22-30 [facility] Comment on above: Order Comment: Speci men Type: BLOOD SPECIMENOrdering Facility: [facility] Address: [address] [address] Performed By: #### 2 532-0, 30830-1 ####[facility] LABCLIA [id number] [place] [address] Creatinine [Mass/Vol] 0.76 mg/dL Normal 0.73-1.22 [facility] Comment on above: Order Comment: Speci men Type: BLOOD SPECIMENOrdering Facility: [facility] Address: [address] [place] [address] Performed By: #### 2 532-0, 47556-7 ####[facility] LABCLIA [id number] [place] [address] ESTIMATED GLOMERULAR FILTRATION RATE 100 mL/min/1.73m??? Normal >=60 [facility] Comment on above: Order Comment: Speci men Type: BLOOD SPECIMENOrdering Facility: [facility] Address: [address] [place] [address] Result Comment: Megan mated Glomerular Filtration Rate [...] actual GFR. Performed By: #### 2 532-0, 50540-8 ####[facility] LABIA [id number] [place] [address] Glucose [Mass/Vol] 96 mg/dL Normal 74-99 [facility] Comment on above: Order Comment: Speci men Type: BLOOD SPECIMENOrdering Facility: [facility] Address: [address] [place] [address] Result Comment: The [place] [employer] (ADA) provides guidance for cutoff [...] Standards of Medical Care in Diabetes 2016, [place] [employer]. Diabetes Care. 2016.39(Suppl 1). Performed By: #### 2 532-0, ####[facility] LABCLIA [id number] [place] [address] Potassium [Moles/Vol] 4.1 mmol/L Normal 3.7-5.1 [facility] Comment on above: Order Comment: Speci men Type: BLOOD SPECIMENOrdering Facility: [facility] Address: [address] [place] [address] Performed By: #### 2 532-0, ####[facility] LABCLIA [id number] [place] [address] Protein [Mass/Vol] 6.8 g/dL Normal 6.3-8.0 [facility] Comment on above: Order Comment: Speci men Type: BLOOD SPECIMENOrdering Facility: [facility] Address: [address] [address] Performed By: #### 2 532-0, ####[facility] LABCLIA [id number] [place] [address] Sodium [Moles/Vol] 136 mmol/L Normal 136-144 [facility] Comment on above: Order Comment: Speci men Type: BLOOD SPECIMENOrdering Facility: [facility] Address: [address] [address] Performed By: #### 2 532-0, ####[facility] LABCLIA [id number] [place] [address] Urea nitrogen [Mass/Vol] 30 mg/dL High 9-24 [facility] Comment on above: Order Comment: Speci men Type: BLOOD SPECIMENOrdering Facility: [facility] Address: [address] [place] [address] Performed By: #### 2 532-0, 91895-6 ####[facility] LABCLIA [id number] [place] [address] Ferritin SerPl-mCncon 2021 Ferritin [Mass/Vol] 644.0 ng/mL High 30.3-565.7 [facility] Comment on above: Order Comment: Speci men Type: BLOOD SPECIMENOrdering Facility: [facility] Address: [address] [place] [address] Performed By: #### 4 542-7, 48929-1, 2276-4 ####[facility] LABCLIA [id number] [place] [address] [place] Folate SerPl-mCncon 05-08-20 22 Folate [Mass/Vol] 7.3 ng/mL Normal >4.[address] [facility] Comment on above: Order Comment: Speci men Type: BLOOD SPECIMENOrdering Facility: [facility] Address: [address] [place] [address] Performed By: #### 2 132-9, 2284-8 ####[facility] LABCLIA [id number] [place] [address] [place] Haptoglob SerPl-mCncon 05-08 Haptoglobin [Mass/Vol] 122 mg/dL Normal 31-238 [facility] Comment on above: Order Comment: Speci men Type: BLOOD SPECIMENOrdering Facility: [facility] Address: [address] [place] [address] Performed By: #### 4 542-7, 00936-9, 2276-4 ####[facility] LABCLIA [id number] [place] [address] [place] Iron and Iron binding capaci ty panelon 05-08-2022 Iron [Mass/Vol] 48 ug/dL Normal 41-186 [facility] Comment on above: Order Comment: Speci men Type: BLOOD SPECIMENOrdering Facility: [facility] Address: [address] [place] [address] Performed By: #### 4 542-7, 68219-7, 2276-4 ####[facility] LABCLIA [id number] [place] [address] [place] Iron binding capacity [Mass/Vol] 217 ug/dL Low 232-386 [facility] Comment on above: Order Comment: Speci men Type: BLOOD SPECIMENOrdering Facility: [facility] Address: [address] [place] [address] Performed By: #### 4 542-7, 92780-3, 6-4 ####[facility] LABCLIA [id number] [place] [address] [place] Iron/TIBC [Molar ratio] 22.1 % Normal 15.0-57.0 [facility] Comment on above: Order Comment: Speci men Type: BLOOD SPECIMENOrdering Facility: [facility] Address: [address] [place] [address] Performed By: #### 4 542-7, 52008-2, 2276-4 ####[facility] LABCLIA [id number] [place] [address] [place] LDH SerPl-cCncon 05-08-2022 LDH [Catalytic activity/Vol] 138 U/L Normal 135-225 [facility] Comment on above: Order Comment: Speci men Type: BLOOD SPECIMENOrdering Facility: [facility] Address: [address] [place] [address] Performed By: #### 2 532-0, 43150-0 ####[facility] LABCLIA [id number] [place] [address] Retics #on 05-08-2022 Reticulocytes (Bld) [#/Vol] 0.94751 10*3/uL Normal 0.018-0.10 0 [facility] Comment on above: Order Comment: Speci men Type: BLOOD SPECIMENOrdering Facility: [facility] Address: [address] [place] [address] Performed By: #### 5 7021-8, 27668-0 ####[facility] LABCLIA [id number] [place] [address] Reticulocytes (Bld) [#/Vol]o n 05-08-2022 Reticulocytes/100 RBC (Bld) 2.2 % High 0.4-2.0 [facility] Comment on above: Order Comment: Speci men Type: BLOOD SPECIMENOrdering Facility: [facility] Address: [address] [place] [address] Performed By: #### 5 7021-8, 53038-3 ####[facility] LABCLIA [id number] [place] [address] Vit B12 SerPl-ncon 022 Cobalamin (Vitamin B12) [Mass/Vol] 574 pg/mL Normal 232-1245 [facility] Comment on above: Order Comment: Speci men Type: BLOOD SPECIMENOrdering Facility: [facility] Address: [address] [place] [address] Performed By: #### 2 132-9, 2284-8 ####[facility] LABCLIA [id number] [address] [address] [place] LIPID PROFILEon 02-04-2022 CHOL-HDL RATIO NORM SEE BELOW Normal [facility] Comment on above: Result Comment: 3.3 - 4.4 LOW RISK 4.4 - 7.1 AVERAGE RISK 7.1 - 11.0 MODERATE RISK >11.0 HIGH RISK Performed By: #### L IPID, CMP #### [facility] [address] [place] [address] [address] [address] Mel Barrientos Cholesterol [Mass/Vol] 100 mg/dL Normal <=200 [facility] Comment on above: Performed By: #### L IPID, CMP #### [facility] [address] [address] [address] Mel Barrientos Cholesterol in HDL [Mass/Vol] 20 mg/dL Critically low 40-60 [facility] Comment on above: Performed By: #### L IPID, CMP #### [facility] [address] [address] [address] Mel Barrientos Cholesterol in LDL [Mass/Vol] 63.6 mg/dL Normal [facility] Comment on above: Performed By: #### L IPID, CMP #### [facility] [address] [address] [address] Mel Barrientos Cholesterol.total/Cho lesterol in HDL [Mass ratio] 5.0 {ratio} Normal [facility] Comment on above: Performed By: #### L IPID, CMP #### [facility] [address] [address] [address] Mel Barrientos HDL NORMAL > or = 60 mg/dl - LO W CARDIOVASCULAR RISK <40 mg/dl - HIGH CARDIOVASCULAR RISK Normal [facility] Comment on above: Performed By: #### L IPID, CMP #### [facility] [address] [place] [address] Dr. Mel Barrientos LDL CALC NORMAL SEE BELOW Normal [facility] Comment on above: Result Comment: <100 mg/dl OPTIMAL 100 - 129 mg/dl NEAR OR ABOVE OPTIMAL 130 - 159 mg/dl BORDERLINE HIGH 160 - 189 mg/dl HIGH >190 mg/dl VERY HIGH Performed By: #### L IPID, CMP #### [facility] [address] [address] [address] Mel Barrientos Triglyceride [Mass/Vol] 82 mg/dL Normal <=150 [facility] Comment on above: Performed By: #### L IPID, CMP #### [facility] [address] [address] [address] Mel Barrientos VLDL CALC 16.4 mg/dL Normal [facility] Comment on above: Performed By: #### L IPID, CMP #### [facility] [address] [place] [address] Dr. Mel Barrientos PROF CHEM 8 (BAS METB)on Anion gap [Moles/Vol] 15.8 mmol/L Normal [facility] Comment on above: Performed By: #### L IPID, CMP #### [facility] [address] [place] [address] Dr. Mel Barrientos Calcium [Mass/Vol] 8.5 mg/dL Normal 8.5-10.1 [facility] Comment on above: Performed By: #### L IPID, CMP #### [facility] [address] [place] [address] Dr. Mel Barrientos Chloride [Moles/Vol] 109 mmol/L Critically high 98-107 [facility] Comment on above: Performed By: #### L IPID, CMP #### [facility] [address] [place] [address] Dr. Mel Barrientos CO2 [Moles/Vol] 17.7 mmol/L Critically low 21.0-32.0 [facility] Comment on above: Performed By: #### L IPID, CMP #### [facility] [address] [place] [address] Dr. Mel Barrientos Creatinine [Mass/Vol] 0.79 mg/dL Normal 0.70-1.30 [facility] Comment on above: Performed By: #### L IPID, CMP #### [facility] [address] [place] [address] Dr. Mel Barrientos EGFR-AF BURUNDIAN >60 Normal >=60 [facility] Comment on above: Performed By: #### L IPID, CMP #### [facility] [address] [place] [address] Dr. Mel Barrientos EGFR-NON AF [place]UNDIAN >60 Normal >=60 [facility] Comment on above: Performed By: #### L IPID, CMP #### [facility] [address] [place] [address] Dr. Mel Barrientos Glucose [Mass/Vol] 116 mg/dL Critically high 74-106 [facility] Comment on above: Performed By: #### L IPID, CMP #### [facility] [address] [place] [address] Dr. Mel Barrientos Potassium [Moles/Vol] 4.5 mmol/L Normal 3.5-5.1 [facility] Comment on above: Performed By: #### L IPID, CMP #### [facility] [address] [place] [address] Dr. Mel Barrientos Sodium [Moles/Vol] 138 mmol/L Normal 136-145 [facility] Comment on above: Performed By: #### L IPID, CMP #### [facility] [address] [place] [address] Dr. Mel Barrientos Urea nitrogen [Mass/Vol] 29.0 mg/dL Critically high 7.0-18.0 [facility] Comment on above: Performed By: #### L IPID, CMP #### [facility] [address] [place] [address] Dr. Mel Barrientos Urea nitrogen/Creatinine [Mass ratio] 36.7 mg/mg Normal [facility] Comment on above: Performed By: #### L IPID, CMP #### [facility] [address] [place] [address] Dr. Mel Andrews 02-04-2022 AST [Catalytic activity/Vol] 35 U/L Normal 15-37 [facility] Comment on above: Performed By: #### B MP, AST, ALT, LIPID #### [facility] [address] [place] [address] Dr. [facility]-04-2022 ALT [Catalytic activity/Vol] 64 U/L Critically high 16-63 [facility] Comment on above: Performed By: #### L IPID, CMP #### [facility] [address] [place] [address] Dr. Mel Barrientos Office Visit (Cardiology)on 01-09-2022 [...] Aminotransferase, Serum; Status:Active - Retrospective Authorization; Requested for:[id number]; AST; Status:Active - Retrospective Authorization; Requested for:[id number]; Basic Metabolic Panel; Status:Active - Retrospective Authorization; Requested for:[id number]; Lipid Panel; Status:Active - Retrospective Authorization; Requested for:[id number]; SocHx: Former smoker Tobacco Use Screening; Status:Complete; Done: [id number] Patient Instructions By signing my name below, [...] of 40%. He is status post anterior AZ, with PCI of the LAD in 2010. [...] Oral TabletTAKE 1 TABLET AT BEDTIME. Creon [id number] UNIT Oral Capsule Delayed Release Particles1 tablet [...] negative for complaint. Vitals Vital Signs Recorded: [id number] 11:21AM Heart Rate80, R Radial Zhlcdcqs225, RUE Ovdpuwmfm31, RUE Height5 ft 8 in Qcajmd829 lb BMI Zezrjntitp64.9 kg/m2 BSA Calculated1.78 Tobacco Useb) No PHQ-2 [...] B12) [Mass/Vol] 609.0 pg/mL Normal 193.0-986. 0 [facility] Comment on above: Performed By: #### P T, PTT #### [facility] [address] [place] [address] Dr. Mel Barrientos CBC AUTO DIFFon 11-12-2021 BASO # 0.0 103/ul Normal 0.0-0.1 [facility] Comment on above: Performed By: #### C BC #### [facility] [address] [place] [address] Dr. Mel Barrientos Basophils/100 WBC (Bld) 0.4 % Normal 0.2-2.0 [facility] Comment on above: Performed By: #### C BC #### [facility] [address] [place] [address] Dr. Mel Barrientos EO # 0.1 103/ul Normal 0.0-0.7 [facility] Comment on above: Performed By: #### C BC #### [facility] [address] [place] [address] Dr. Mel Barrientos Eosinophils/100 WBC (Bld) 1.6 % Normal 0.9-7.0 [facility] Comment on above: Performed By: #### C BC #### [facility] [address] [place] [address] Dr. Mel Barrientos Erythrocyte distribution width (RBC) [Ratio] 14.4 % Normal 11.0-15.0 [facility] Comment on above: Performed By: #### C BC #### [facility] [address] [place] [address] Dr. Mel Barrientos Hematocrit (Bld) [Volume fraction] 38.1 % Critically low 42.0-54.0 [facility] Comment on above: Performed By: #### C BC #### [facility] [address] [place] [address] Dr. Mel Barrientos Hemoglobin (Bld) [Mass/Vol] 12.5 g/dL Critically low 14.0-18.0 [facility] Comment on above: Performed By: #### C BC #### [facility] [address] [place] [address] Dr. Mel Barrientos IG # 0.02 10e3/ul Normal 0.00-0.03 [facility] Comment on above: Performed By: #### C BC #### [facility] [address] [place] [address] Dr. Mel Barrientos IG % 0.4 % Normal 0.0-0.5 [facility] Comment on above: Performed By: #### C BC #### [facility] [address] [place] [address] Dr. Mel Barrientos LYMPH # 2.2 103/ul Normal 1.2-3.8 [facility] Comment on above: Performed By: #### C BC #### [facility] [address] [place] [address] Dr. Mel Barrientos Lymphocytes/100 WBC (Bld) 43.2 % Normal 20.5-60.0 [facility] Comment on above: Performed By: #### C BC #### [facility] [address] [place] [address] Dr. Mel Barrientos MANUAL DIFF REQ NO Normal [facility] Comment on above: Performed By: #### C BC #### [facility] [address] [place] [address] Dr. Mel Barrientos MCH (RBC) [Entitic mass] 35.1 pg Critically high 25.9-34.0 [facility] Comment on above: Performed By: #### C BC #### [facility] [address] [place] [address] Dr. Mel Barrientos MCHC (RBC) [Mass/Vol] 32.8 g/dL Normal 29.9-35.2 [facility] Comment on above: Performed By: #### C BC #### [facility] [address] [place] [address] Dr. Mel Barrientos MCV (RBC) [Entitic vol] 107.0 fL Critically high 80.0-94.0 [facility] Comment on above: Result Comment: MACR OCYTOSIS CONFIRMED ON PERIPHERAL SMEAR Performed By: #### C BC #### [facility] [address] [place] [address] Dr. Mel Barrientos MONO # 0.5 103/ul Normal 0.3-0.8 [facility] Comment on above: Performed By: #### C BC #### [facility] [address] [place] [address] Dr. Mel Barrientos Monocytes/100 WBC (Bld) 9.4 % Normal 1.7-12.0 [facility] Comment on above: Performed By: #### C BC #### [facility] [address] [place] [address] Dr. Mel Barrientos NEUT # 2.3 103/ul Normal 1.4-6.5 [facility] Comment on above: Performed By: #### C BC #### [facility] [address] [place] [address] Dr. Mel Barrientos Neutrophils/100 WBC (Bld) 45.0 % Normal 43.0-75.0 [facility] Comment on above: Performed By: #### C BC #### [facility] [address] [place] [address] Dr. Mel Barrientos Platelet mean volume (Bld) [Entitic vol] 9.3 fL Critically low 9.5-13.5 [facility] Comment on above: Performed By: #### C BC #### [facility] [address] [place] [address] Dr. Mel Barrientos PLT 307 103/ul Normal 150-450 [facility] Comment on above: Performed By: #### C BC #### [facility] [address] [place] [address] Dr. Mel Barrientos RBC 3.56 106/ul Critically low 4.70-6.10 [facility] Comment on above: Performed By: #### C BC #### [facility] [address] [place] [address] Dr. Mel Barrientos WBC 5.1 103/ul Normal 4.0-11.0 [facility] Comment on above: Performed By: #### C BC #### [facility] [address] [place] [address] Dr. Mel Barrientos PROF 14(COMP METB)on 022 Albumin [Mass/Vol] 2.3 g/dL Critically low 3.4-5.0 [facility] Comment on above: Performed By: #### L IPID, CMP #### [facility] [address] [place] [address] Dr. Mel Barrientos Albumin/Globulin [Mass ratio] 0.6 {ratio} Normal [facility] Comment on above: Performed By: #### L IPID, CMP #### [facility] [address] [place] [address] Dr. Mel Barrientos ALP [Catalytic activity/Vol] 189 U/L Critically high 46-116 [facility] Comment on above: Performed By: #### L IPID, CMP #### [facility] [address] [place] [address] Dr. Mel Barrientos ALT [Catalytic activity/Vol] 86 U/L Critically high 16-63 [facility] Comment on above: Performed By: #### L IPID, CMP #### [facility] [address] [place] [address] Dr. Mel Barrientos Anion gap [Moles/Vol] 15.4 mmol/L Normal [facility] Comment on above: Performed By: #### L IPID, CMP #### [facility] [address] [place] [address] Dr. Mel Barrientos AST [Catalytic activity/Vol] 67 U/L Critically high 15-37 [facility] Comment on above: Performed By: #### L IPID, CMP #### [facility] [address] [place] [address] Dr. Mel Barrientos Bilirubin [Mass/Vol] 0.4 mg/dL Normal 0.2-1.0 [facility] Comment on above: Performed By: #### L IPID, CMP #### [facility] [address] [place] [address] Dr. Mel Barrientos Calcium [Mass/Vol] 7.7 mg/dL Critically low 8.5-10.1 [facility] Comment on above: Performed By: #### L IPID, CMP #### [facility] [address] [place] [address] Dr. Mel Barrientos Chloride [Moles/Vol] 106 mmol/L Normal 98-107 [facility] Comment on above: Performed By: #### L IPID, CMP #### [facility] [address] [place] [address] Dr. Mel Barrientos CO2 [Moles/Vol] 17.7 mmol/L Critically low 21.0-32.0 [facility] Comment on above: Performed By: #### L IPID, CMP #### [facility] [address] [place] [address] Dr. Mel Barrientos Creatinine [Mass/Vol] 0.91 mg/dL Normal 0.70-1.30 [facility] Comment on above: Performed By: #### L IPID, CMP #### [facility] [address] [place] [address] Dr. Mel Barrientos EGFR-AF BURUNDIAN >60 Normal >=60 [facility] Comment on above: Performed By: #### L IPID, CMP #### [facility] [address] [place] [address] Dr. Mel Barrientos EGFR-NON AF BURUNDIAN >60 Normal >=60 [facility] Comment on above: Performed By: #### L IPID, CMP #### [facility] [address] [place] [address] Dr. Mel Barrientos Globulin (S) [Mass/Vol] 3.8 g/dL Normal [facility] Comment on above: Performed By: #### L IPID, CMP #### [facility] [address] [place] [address] Dr. Mel Barrientos Glucose [Mass/Vol] 77 mg/dL Normal 74-106 [facility] Comment on above: Performed By: #### L IPID, CMP #### [facility] [address] [place] [address] Dr. Mel Barrientos Potassium [Moles/Vol] 4.1 mmol/L Normal 3.5-5.1 [facility] Comment on above: Performed By: #### L IPID, CMP #### [facility] [address] [place] [address] Dr. Mel Barrientos Protein [Mass/Vol] 6.1 g/dL Critically low 6.4-8.2 [facility] Comment on above: Performed By: #### L IPID, CMP #### [facility] [address] [place] [address] Dr. Mel Barrientos Sodium [Moles/Vol] 135 mmol/L Critically low 136-145 [facility] Comment on above: Performed By: #### L IPID, CMP #### [facility] [address] [place] [address] Dr. Mel Barrientos Urea nitrogen [Mass/Vol] 25.0 mg/dL Critically high 7.0-18.0 [facility] Comment on above: Performed By: #### L IPID, CMP #### [facility] [address] [place] [address] Dr. Mel Barrientos Urea nitrogen/Creatinine [Mass ratio] 27.5 mg/mg Normal [facility] Comment on above: Performed By: #### L IPID, CMP #### [facility] [address] [place] [address] Dr. Mel Barrientos GLYCOHEMOGLOBIN A1Con 2021 ADA RECOMMENDATION ADA THERAPEUTIC TARG ET 6.0 - 7.0 ACTION SUGGESTED > 7.0 [facility] Comment on above: Performed By: #### L IPID, CMP #### [facility] [address] [place] [address] Dr. Mel Barrientos Glucose [Mass/Vol] 100 mg/dL Normal [facility] Comment on above: Performed By: #### L IPID, CMP #### [facility] [address] [address] [address] Mel Barrientos HbA1c (Bld) [Mass fraction] 5.1 % Normal <=6.0 [facility] Comment on above: Performed By: #### L IPID, CMP #### [facility] [address] [address] [address] Mel Barrientos LIPID PROFILEon 10-10-2021 CHOL-HDL RATIO NORM SEE BELOW Normal [facility] Comment on above: Result Comment: 3.3 - 4.4 LOW RISK 4.4 - 7.1 AVERAGE RISK 7.1 - 11.0 MODERATE RISK >11.0 HIGH RISK Performed By: #### L IPID, CMP #### [facility] [address] [place] [address] Dr. Mel aBrrientos Cholesterol [Mass/Vol] 63 mg/dL Normal <=200 [facility] Comment on above: Performed By: #### L IPID, CMP #### [facility] [address] [address] [address] Mel Barrientos Cholesterol in HDL [Mass/Vol] 12 mg/dL Critically low 40-60 [facility] Comment on above: Performed By: #### L IPID, CMP #### [facility] [address] [place] [address] Dr. Mel Barrientos Cholesterol in LDL [Mass/Vol] 32.2 mg/dL Normal [facility] Comment on above: Performed By: #### L IPID, CMP #### [facility] [address] [address] [address] Mel Barrientos Cholesterol.total/Cho lesterol in HDL [Mass ratio] 5.3 {ratio} Normal [facility] Comment on above: Performed By: #### L IPID, CMP #### [facility] [address] [place] [address] Dr. Mel Barrientos HDL NORMAL > or = 60 mg/dl - LO W CARDIOVASCULAR RISK <40 mg/dl - HIGH CARDIOVASCULAR RISK Normal [facility] Comment on above: Performed By: #### L IPID, CMP #### [facility] [address] [address] [address] Mel Barrientos LDL CALC NORMAL SEE BELOW Normal [facility] Comment on above: Result Comment: <100 mg/dl OPTIMAL 100 - 129 mg/dl NEAR OR ABOVE OPTIMAL 130 - 159 mg/dl BORDERLINE HIGH 160 - 189 mg/dl HIGH >190 mg/dl VERY HIGH Performed By: #### L IPID, CMP #### [facility] [address] [place] [address] Dr. Mel Barrientos Triglyceride [Mass/Vol] 94 mg/dL Normal <=150 [facility] Comment on above: Performed By: #### L IPID, CMP #### [facility] [address] [place] [address] Dr. Mel Barrientos VLDL CALC 18.8 mg/dL Normal [facility] Comment on above: Performed By: #### L IPID, CMP #### [facility] [address] [place] [address] Dr. Mel Barrientos PROF 14(COMP METB)on 022 Albumin [Mass/Vol] 2.4 g/dL Critically low 3.4-5.0 [facility] Comment on above: Performed By: #### L IPID, CMP #### [facility] [address] [place] [address] Dr. Mel Barrientos Albumin/Globulin [Mass ratio] 0.8 {ratio} Normal [facility] Comment on above: Performed By: #### L IPID, CMP #### [facility] [address] [place] [address] Dr. Mel Barrientos ALP [Catalytic activity/Vol] 153 U/L Critically high 46-116 [facility] Comment on above: Performed By: #### L IPID, CMP #### [facility] [address] [place] [address] Dr. Mel Barrientos ALT [Catalytic activity/Vol] 133 U/L Critically high 16-63 [facility] Comment on above: Performed By: #### L IPID, CMP #### [facility] [address] [place] [address] Dr. Mel Barrientos Anion gap [Moles/Vol] 12.1 mmol/L Normal [facility] Comment on above: Performed By: #### L IPID, CMP #### [facility] [address] [address] [address] Mel Barrientos AST [Catalytic activity/Vol] 215 U/L Critically high 15-37 [facility] Comment on above: Performed By: #### L IPID, CMP #### [facility] [address] [place] [address] Dr. Mel Barrientos Bilirubin [Mass/Vol] 0.4 mg/dL Normal 0.2-1.3 [facility] Comment on above: Performed By: #### L IPID, CMP #### [facility] [address] [place] [address] Dr. Mel Barrientos Calcium [Mass/Vol] 7.6 mg/dL Critically low 8.5-10.1 [facility] Comment on above: Performed By: #### L IPID, CMP #### [facility] [address] [place] [address] Dr. Mel Barrientos Chloride [Moles/Vol] 107 mmol/L Normal 98-107 [facility] Comment on above: Performed By: #### L IPID, CMP #### [facility] [address] [place] [address] Dr. Mel Barrientos CO2 [Moles/Vol] 22.8 mmol/L Normal 22.0-30.0 [facility] Comment on above: Performed By: #### L IPID, CMP #### [facility] [address] [place] [address] Dr. Mel Barrientos Creatinine [Mass/Vol] 0.99 mg/dL Normal 0.66-1.25 [facility] Comment on above: Performed By: #### L IPID, CMP #### [facility] [address] [place] [address] Dr. Mel Barrientos EGFR-AF BURUNDIAN >60 Normal >=60 [facility] Comment on above: Performed By: #### L IPID, CMP #### [facility] [address] [place] [address] Dr. Mel Barrientos EGFR-NON AF BURUNDIAN >60 Normal >=60 [facility] Comment on above: Performed By: #### L IPID, CMP #### [facility] [address] [place] [address] Dr. Mel Barrientos Globulin (S) [Mass/Vol] 3.2 g/dL Normal [facility] Comment on above: Performed By: #### L IPID, CMP #### [facility] [address] [place] [address] Dr. eMl Barrientos Glucose [Mass/Vol] 68 mg/dL Critically low 74-106 [facility] Comment on above: Performed By: #### L IPID, CMP #### [facility] [address] [place] [address] Dr. Mel Barrientos Potassium [Moles/Vol] 4.9 mmol/L Normal 3.4-5.0 [facility] Comment on above: Performed By: #### L IPID, CMP #### [facility] [address] [place] [address] Dr. Mel Barrientos Protein [Mass/Vol] 5.6 g/dL Critically low 6.1-8.2 [facility] Comment on above: Performed By: #### L IPID, CMP #### [facility] [address] [place] [address] Dr. Mel Barrientos Sodium [Moles/Vol] 137 mmol/L Normal 137-145 [facility] Comment on above: Performed By: #### L IPID, CMP #### [facility] [address] [place] [address] Dr. Mel Barrientos Urea nitrogen [Mass/Vol] 30.0 mg/dL Critically high 7.0-18.0 [facility] Comment on above: Performed By: #### L IPID, CMP #### [facility] [address] [place] [address] Dr. Mel Barrientos Urea nitrogen/Creatinine [Mass ratio] 30.3 mg/mg Normal [facility] Comment on above: Performed By: #### L IPID, CMP #### [facility] [address] [place] [address] Dr. Mel Barrientos CASE MANAGEMon 10-09-2017 CASE MANAGEM HNO ID: [id number] thor: Clementina Culver (Lsw)uloService: Care ManagementAuthor Type: Social WorkerType: Care Mgt Progress NoteFiled: 10/09/2017 3:12 PMNote Text:CARE MANAGEMENT DISCHARGE NOTESERVICE DATE: 10/09/2017SERVICE TIME: 3:02 PM LOS: 9 daysAdmission Date: 09/30/2017DISCHARGE ARRANGEMENT (list agency and phone number)USP facilityProvider: 'milly Long ZSIWMUTSI ASSESSMENT:Caregiver is ready, willing and able to meet the patient's needs asrecommended by the inter-professional team? YesPatient's transition needs and plan for meeting these needs: SNFDoes the patient have an acute stroke diagnosis, or has the patient had astroke during this admission? NoHANDOFF COMMUNICATION:Primary Care Physician: Dr. Adriane Nichols [id number] ARRANGEMENTS:Car FamilyADDITIONAL CONTACT RESOURCES: Pt sister Briana Muller [phone] Prior to Discharge: Ready for DischargePt medically cleared for d/c. Pt referral updated and Liaison met with Ptand nursing this afternoon. CM prepared d/c packet and 7000 and placed onPt chart w/number for nursing to call report. Per Pt and Pt sister familyto transport Pt around [phone] today. Text to Allegra GARCIA) to contactnursing on Pt d/c instructions.SIGNATURE: TRACI Hammer PATIENT NAME: Rociomarisa JacksonDATE: October 09, 2017 : 3:02 PM PAGER/CONTACT #: [phone] Normal [facility] CBC and Differentialon 10-09 Abs Baso <0.03 Normal <0.11 [facility] Comment on above: Performed By: #### P T, PTT, AMYL, CMP, LIPA, PHOS ####[facility] [place], [place] [phone]#### TRANSF ####[facility] [place], [place] [phone] Abs Elmore 0.40 k/uL Normal <0.87 [facility] Comment on above: Performed By: #### P T, PTT, AMYL, CMP, LIPA, PHOS ####[address] [place] [address]#### TRANSF ####[place] [phone] Abs Neut 3.59 k/uL Normal 1.45-7.50 [facility] Comment on above: Performed By: #### P T, PTT, AMYL, CMP, LIPA, PHOS ####[address] [address]#### TRANSF ####[address] [place] [phone] Basophils/100 WBC Auto (Bld) 0.3 % Normal [facility] Comment on above: Performed By: #### P T, PTT, AMYL, CMP, LIPA, PHOS ####[address] [address]#### TRANSF ####[place] [phone] DTYPE Auto Diff Normal [facility] Comment on above: Performed By: #### P T, PTT, AMYL, CMP, LIPA, PHOS ####[place] [address]#### TRANSF ####[address] [address] [address] [phone] Eosinophils 0.10 10*3/uL Normal <0.46 [facility] Comment on above: Performed By: #### P T, PTT, AMYL, CMP, LIPA, PHOS ####[address] [address]#### TRANSF ####[place] [phone] Eosinophils/100 leukocytes 1.7 % Normal [facility] Comment on above: Performed By: #### P T, PTT, AMYL, CMP, LIPA, PHOS ####[address] [address]#### TRANSF ####[place] [phone] Erythrocyte distribution width Auto Ratio (RBC) 16.8 % High 11.5-15.0 [facility] Comment on above: Performed By: #### P T, PTT, AMYL, CMP, LIPA, PHOS ####[address] [address]#### TRANSF ####[place] [phone] Erythrocytes (RBC) 3.79 10*6/uL Low 4.20-6.00 [facility] Comment on above: Performed By: #### P T, PTT, AMYL, CMP, LIPA, PHOS ####[address] [address]#### TRANSF ####[place] [phone] Hematocrit (HCT) 29.8 % Low 39.0-51.0 [facility] Comment on above: Performed By: #### P T, PTT, AMYL, CMP, LIPA, PHOS ####[address] [address]#### TRANSF ####[place] [phone] Hemoglobin mass conc (Bld) 9.5 g/dL Low 13.0-17.0 [facility] Comment on above: Performed By: #### P T, PTT, AMYL, CMP, LIPA, PHOS ####[place] [address]#### TRANSF ####[place] [phone] Lymphocytes 1.69 10*3/uL Normal 1.00-4.00 [facility] Comment on above: Performed By: #### P T, PTT, AMYL, CMP, LIPA, PHOS ####[address]#### TRANSF ####[place] [phone] Lymphocytes/100 leukocytes 29.1 % Normal [facility] Comment on above: Performed By: #### P T, PTT, AMYL, CMP, LIPA, PHOS ####[address] [place] [address]#### TRANSF ####[place] [phone] MCH 25.1 pG Low 26.0-34.0 [facility] Comment on above: Performed By: #### P T, PTT, AMYL, CMP, LIPA, PHOS ####[address] [place] [address]#### TRANSF ####[place] [phone] MCHC mass conc (RBC) 31.9 g/dL Normal 30.5-36.0 [facility] Comment on above: Performed By: #### P T, PTT, AMYL, CMP, LIPA, PHOS ####[address] [place] [address]#### TRANSF ####[place] [phone] MCV 78.6 fL Low 80.0-100.0 [facility] Comment on above: Performed By: #### P T, PTT, AMYL, CMP, LIPA, PHOS ####[address]#### TRANSF ####[address] [address] [address] [phone] Monocytes/100 leukocytes 6.9 % Normal [facility] Comment on above: Performed By: #### P T, PTT, AMYL, CMP, LIPA, PHOS ####[place] [phone]#### TRANSF ####[address] [phone] Neutrophils/100 WBC Auto (Bld) 62.0 % Normal [facility] Comment on above: Performed By: #### P T, PTT, AMYL, CMP, LIPA, PHOS ####[address]#### TRANSF ####[place] [phone] Platelet mean volume (PMV) 9.3 fL Normal 9.0-12.7 [facility] Comment on above: Performed By: #### P T, PTT, AMYL, CMP, LIPA, PHOS ####[address]#### TRANSF ####[place] [phone] Platelets 421 10*3/uL High 150-400 [facility] Comment on above: Performed By: #### P T, PTT, AMYL, CMP, LIPA, PHOS ####[place] [phone]#### TRANSF ####[address] [phone] WBC (Leukocytes) 5.80 10*3/uL Normal 3.70-11.[address] [facility] Comment on above: Performed By: #### P T, PTT, AMYL, CMP, LIPA, PHOS ####[place] [phone]#### TRANSF ####[facility] [address] [place], [place] [phone] CNDSon 10-09-2017 CNDS HNO ID: [id number] thor: Harmony Bonde: General SurgeryAuthor Type: ResidentType: Discharge SummariesFiled: 10/27/2017 12:15 PMNote Text:DISCHARGE SUMMARYPATIENT NAME: Rocio Jackson ADMISSION DATE: 09/30/2017MRN: [id number] DISCHARGE DATE: ATTENDING PHYSICIAN: Michael Jolley)REASON FOR [...] PATIENT: (To pull info documented from the [employer] Complete O/S First): No orders of [...] Glucose (mg/dL) is:Less than 110 Give 0 -016 Give 0 -494 Give 2 -372 Give 4 [id number] Give 6 [id number] Give 8 -565 Give 10 unitsGreater than 400 Give 10 [...] 20 mL by mouth once daily.Med Update, Bdds-cauhjmamyf-xfehogwq-arnulfo lase (CREON 24) 24,000-76,000 -120,000 unit cpDRTake [...] PCP: Adriane Nichols AppointmentsDate Time Provider Department [place]10/29/2017 1:30 PM Michael Jolley) [id number] [facility] (Use first blank if not applicable): TIME OF CARE: DischargeManagement: I personally spent less than 30 minutes involved in thedischarge management of this patient.SIGNATURE: Harmony Rodriguez MD PATIENT NAME: Rocio TorresdonnyDATE: October 27, 2017 : 12:12 PM PAGER/CONTACT #: [phone] Normal [facility] Comp Metabolic Panelon 10-09 Alanine aminotransferase (ALT) 26 U/L Normal 5-50 [facility] Comment on above: Performed By: #### P T, PTT, AMYL, CMP, LIPA, PHOS ####[place] [phone]#### TRANSF ####[place] [phone] Albumin 3.1 g/dL Low 3.5-5.0 [facility] Comment on above: Performed By: #### P T, PTT, AMYL, CMP, LIPA, PHOS ####[place] [phone]#### TRANSF ####[place] [phone] Alkaline phosphatase (ALP) 101 U/L Normal 40-150 [facility] Comment on above: Performed By: #### P T, PTT, AMYL, CMP, LIPA, PHOS ####[place] [address]#### TRANSF ####[place] [phone] Anion gap 13 mmol/L Normal 9-18 [facility] Comment on above: Performed By: #### P T, PTT, AMYL, CMP, LIPA, PHOS ####[place] [address]#### TRANSF ####[place] [phone] Aspartate aminotransferase (AST) 20 U/L Normal 7-40 [facility] Comment on above: Performed By: #### P T, PTT, AMYL, CMP, LIPA, PHOS ####[place] [address]#### TRANSF ####[place] [phone] Bilirubin (total) 0.2 mg/dL Normal 0.0-1.5 [facility] Comment on above: Performed By: #### P T, PTT, AMYL, CMP, LIPA, PHOS ####[place] [address]#### TRANSF ####[place] [phone] Calcium 8.6 mg/dL Normal 8.5-10.5 [facility] Comment on above: Performed By: #### P T, PTT, AMYL, CMP, LIPA, PHOS ####[place] [address]#### TRANSF ####[place] [phone] Chloride 101 mmol/L Normal 98-110 [facility] Comment on above: Performed By: #### P T, PTT, AMYL, CMP, LIPA, PHOS ####[address]#### TRANSF ####[place] [phone] CO2 24 mmol/L Normal 23-32 [facility] Comment on above: Performed By: #### P T, PTT, AMYL, CMP, LIPA, PHOS ####[place] [address]#### TRANSF ####[place] [phone] Creatinine 0.51 mg/dL Low 0.70-1.40 [facility] Comment on above: Performed By: #### P T, PTT, AMYL, CMP, LIPA, PHOS ####[place] [address]#### TRANSF ####[place] [phone] eGFR (non-black) mL/min/{1.73_m2} Normal >60 [facility] Comment on above: Performed By: #### P T, PTT, AMYL, CMP, LIPA, PHOS ####[place] [address]#### TRANSF ####[place] [address] Glucose mass conc 185 mg/dL High 65-100 [facility] Comment on above: Performed By: #### P T, PTT, AMYL, CMP, LIPA, PHOS ####[place] [address]#### TRANSF ####[place] [address] Potassium molar conc 3.7 mmol/L Normal 3.5-5.0 [facility] Comment on above: Performed By: #### P T, PTT, AMYL, CMP, LIPA, PHOS ####[place] [address]#### TRANSF ####[place] [address] Protein 6.5 g/dL Normal 6.0-8.4 [facility] Comment on above: Performed By: #### P T, PTT, AMYL, CMP, LIPA, PHOS ####[place] [address]#### TRANSF ####[place] [address] Sodium 138 mmol/L Normal 135-146 [facility] Comment on above: Performed By: #### P T, PTT, AMYL, CMP, LIPA, PHOS ####[place] [address]#### TRANSF ####[place] [address] Urea nitrogen 20 mg/dL Normal 10-25 [facility] Comment on above: Performed By: #### P T, PTT, AMYL, CMP, LIPA, PHOS ####[place] [address]#### TRANSF ####[place] [address] NURSING PROGon 10-09-2017 NURSING PROG HNO ID: [id number] thor: Reggie (Rn) MOUSTAPHA Sawantervice: (none)Author Type: Registered NurseType: Nursing Progress NoteFiled: 10/09/2017 12:48 PMNote Text: Nursing Progress NotePatient Name: Rocio Boudreaux: [id number] Location: [place] [address]/[id number] ____Daily Note: Mr. Jackson up to chair most of shift thus far. Ambulated inhallway with use of walker and 1 staff. He is tolerating tube feed at40ml/hr with no nausea or vomiting. Patient also tolerating clear liquidswith increased intake today as compared to yesterday. Pain controlledwith scheduled Tylenol. Plan for [facility] today. Patient updated on plan to transfer to SNF and agreeable with plan. Calllight within reach. Will continue to monitor.This note was completed by: Reggie Sawant RN [facility] NURSING PROG HNO ID: [id number] thor: Renae Diaz (Rn) Siva, RNService: (none)Author Type: Registered NurseType: Nursing Progress NoteFiled: 10/09/2017 2:52 AMNote Text: Nursing Progress NotePatient Name: Rocio JacksonMRN: [id number] Location: [place] [address]/MB-[id number] ____ 2130 (late entry) Patient heart rate 119, when listening to apicalnoticed irregular rhythm and rate of 96. Patient denied chest pain ordiscomfort or SOB. vice president digital strategist notified and telemetry ordered andapplied.2300 Patient seen by operating room surgical technician and no new orders received at thistime. [...] note was completed by: Renae Paniagua RN [facility] PLAN OF CAREon 10-09-2017 PLAN OF CARE HNO ID: [id number] thor: Miriam Britt ([employer])Service: (none)Author Type: TechnicianType: Plan of CareFiled: 10/12/2017 9:54 AMNote 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 Patient to use [facility] Bedside Delivery - N/A2. If fax, patient would like us to fax prescriptions to [facility] a. Pharmacy: b. Location: c. Phone:3. Insurance card on file - N/A4. Credit card for payment - N/A [facility] PROGRESSon 10-09-2017 PROGRESS HNO ID: [id number] thor: Michael Cedillo) AugustinService: General SurgeryAuthor Type: PhysicianType: Progress NotesFiled: 10/09/2017 10:59 AMNote Text:SURGICAL SERVICES PROGRESS NOTENAME: Rocio JacksonMRN: [id number]: 10/09/2017Time: 8:16 JUDIE DATE: 09/30/20179 Days Post-OpProcedure(s) [...] on POD 3 nml, removed. Transferred to [facility]??Patient did well overnight with no acute [...] (195 lb 12.3 oz) SpO2 96% BMI29.77 kg/f3Tjatwl/Output Summary (Last 24 hours) at 10/09/17 0952Last [...] in this interval not displayed.CoagsRecent Labs 09/24/18083 08/15/1820219847TPYS 25.9 24.9 -- -- 39.8* 31.6INR 1.2 1.1 1.0 2.0* 2.0* 1.5*Tasha Fishert, PGY-1 - General SurgeryPager [phone] [facility] THERAPY NTon 10-09-2017 THERAPY NT HNO ID: [id number] thor: Alicia Sinhaervice: Occupational TherapyAuthor Type: Occupational TherapistType: Therapy (PT/OT/Speech/Resp)Filed: 10/09/2017 3:06 PMNote Text:OCCUPATIONAL THERAPY MISSED VISITSERVICE DATE: 10/09/2017SERVICE TIME: 1400 to 1400ROOM: FX-XA1M-87Tdgjtztdz Treatment. Patient not seen due to (being D/C this pm).SIGNATURE: WENDY Ramires/Timo PATIENT NAME: Rocio Sibley: October 09, 2017 : 3:06 PM PAGER/CONTACT #:[phone] [facility] THERAPY NT HNO ID: [id number] thor: Saima Feliciano (Cota)pasService: Occupational TherapyAuthor Type: Occupational Therapy AssistantType: Therapy (PT/OT/Speech/Resp)Filed: 10/09/2017 10:11 AMNote Text: -Attestation signed by Jacqueline Arshad at 10/09/2017 12:31 PMI reviewed and agree with the documentation corresponding to this therapyvisit.SIGNATURE: Jacqueline Arshad OTR/LDATE: October 09, 2017TIME: 12:31 PM OC CUPATIONAL THERAPY MISSED VISITSERVICE DATE: 10/09/2017SERVICE TIME: 1009 to 1009ROOM: DZ-BR3A-55Vqqscvvgj Treatment. Patient not seen due to Sleeping. Nursing aware(Reggie)SIGNATURE: TRACY Dumont PATIENT NAME: Rocio VizcarraTE: October 09, 2017 : 10:10 AM PAGER/CONTACT #:[phone] [facility] CASE MANAGEMon 10-08-2017 CASE MANAGEM HNO ID: [id number] thor: [facility] PezzuloService: Care ManagementAuthor Type: Social WorkerType: Care Mgt Progress NoteFiled: 10/08/2017 4:29 PMNote Text:MULTIDISCIPLINARY ROUNDSSERVICE DATE: 10/08/2017 ADMISSION DATE: 09/30/2017SERVICE TIME: 10:45 AM ANTICIPATED D/C DATE: 10/10/2017Problem List:ACTIVE PROBLEM LISTDuodenal ObstructionSevere Protein-Calorie Malnutrition (Hcc)Duodenal Cancer (Hcc)Attendees Present at Rounds:Stage Set Designer: Jasbiramily: yPatient: Rocio Shaikh Nurse: Laura Discussed on Rounds:DietDischarge NeedsFamily ConcernsMobilityPlan of CareAnticipated Discharge Disposition:Retirement FacilityLast Vitals: BP 153/85 Pulse 90 Temp (Src) 97.9 (Oral) Resp 16 Ht5' 7.992 (1.73m) Wt 195 lb 12.3 oz (88.8kg) SpO2 97% BMI 29.77kg/(m2).Pt SNF vs [place]. Most likely SNFNursing:DOCUMENTED BY: Clementina TRACI Kunz PATIENT NAME: Rocio VizcarraTE: October 08, 2017 : 4:27 PM CSN: [id number] [facility] CASE MANAGEM HNO ID: [id number] thor: Clementina Florez) PalomouloService: Care ManagementAuthor Type: Social WorkerType: Care Mgt Progress NoteFiled: 10/08/2017 4:37 PMNote Text:CARE MANAGEMENT PROGRESS NOTESERVICE DATE: 10/08/2017SERVICE TIME: 1:16 PM LOS: 8 daysNeeds Prior to Discharge: Precertification;Accepting Facility;Other: SeeComment (Pt and Pt sister [facility] are not able to accept Pt AND feel Pt best suited for SNF. Familymet w Liaison from [facility] who is willing to accept although waitingon acceptance from 1st choice [place])CM phoned and left message inquiring on acceptance of Pt for intake -Denise Garcia.ADDENDUM: 1630: Per Paty at [facility] Pt Insurance is Out ofNetwork. CM met with Pt bedside. Pt sister present, CM discussedinsurance and Pt SNF choices. Per Pt he [facility]. CM requested precert to begin.SIGNATURE: TRACI Hammer PATIENT NAME: Rocio VizcarraTE: October 08, 2017 : 1:16 PM PAGER/CONTACT #: [phone] [facility] CASE MANAGEM HNO ID: [id number] thor: Clementina Greenwood (Traci) Marirvice: Care ManagementAuthor [...] is present. Per Ptand sister they [facility] [place] ([place])([place]) CM spoke w/alina Sarabia [phone] in admission whowill review Pt to determine acceptance. [facility]. CM sent referrals.SIGNATURE: TRACI Hammer PATIENT NAME: Rocio JacksonDATE: October 08, 2017 : 9:08 AM PAGER/CONTACT #: [phone] Normal [facility] CBC and Differentialon 10-08 Abs Baso <0.03 Normal <0.11 [facility] Comment on above: Performed By: #### P T, PTT, AMYL, CMP, LIPA, PHOS ####[place] [address]#### TRANSF ####[place] [address] [place] [address] Abs Elmore 0.38 k/uL Normal <0.87 [facility] Comment on above: Performed By: #### P T, PTT, AMYL, CMP, LIPA, PHOS ####[place] [address]#### TRANSF ####[facility] [address] [place], [place] [address] Abs Neut 4.15 k/uL Normal 1.45-7.50 [facility] Comment on above: Performed By: #### P T, PTT, AMYL, CMP, LIPA, PHOS ####[place] [address]#### TRANSF ####[place] [address] Basophils/100 WBC Auto (Bld) 0.3 % Normal [facility] Comment on above: Performed By: #### P T, PTT, AMYL, CMP, LIPA, PHOS ####[place] [address]#### TRANSF ####[place] [address] DTYPE Auto Diff Normal [facility] Comment on above: Performed By: #### P T, PTT, AMYL, CMP, LIPA, PHOS ####[place] [address]#### TRANSF ####[place] [address] Eosinophils 0.07 10*3/uL Normal <0.46 [facility] Comment on above: Performed By: #### P T, PTT, AMYL, CMP, LIPA, PHOS ####[place] [address]#### TRANSF ####[place] [address] Eosinophils/100 leukocytes 1.1 % Normal [facility] Comment on above: Performed By: #### P T, PTT, AMYL, CMP, LIPA, PHOS ####[place] [address]#### TRANSF ####[place] [address] Erythrocyte distribution width Auto Ratio (RBC) 16.8 % High 11.5-15.0 [facility] Comment on above: Performed By: #### P T, PTT, AMYL, CMP, LIPA, PHOS ####[place] [address]#### TRANSF ####[place] [address] Erythrocytes (RBC) 3.72 10*6/uL Low 4.20-6.00 [facility] Comment on above: Performed By: #### P T, PTT, AMYL, CMP, LIPA, PHOS ####[place] [address]#### TRANSF ####[place] [phone] Hematocrit (HCT) 29.5 % Low 39.0-51.0 [facility] Comment on above: Performed By: #### P T, PTT, AMYL, CMP, LIPA, PHOS ####[place] [address]#### TRANSF ####[place] [address] Hemoglobin mass conc (Bld) 9.4 g/dL Low 13.0-17.0 [facility] Comment on above: Performed By: #### P T, PTT, AMYL, CMP, LIPA, PHOS ####[place] [address]#### TRANSF ####[place] [address] Lymphocytes 1.91 10*3/uL Normal 1.00-4.00 [facility] Comment on above: Performed By: #### P T, PTT, AMYL, CMP, LIPA, PHOS ####[place] [address]#### TRANSF ####[place] [address] Lymphocytes/100 leukocytes 29.2 % Normal [facility] Comment on above: Performed By: #### P T, PTT, AMYL, CMP, LIPA, PHOS ####[place] [address]#### TRANSF ####[address] Av[place] [phone] MCH 25.3 pG Low 26.0-34.0 [facility] Comment on above: Performed By: #### P T, PTT, AMYL, CMP, LIPA, PHOS ####[place] [address]#### TRANSF ####[place] [phone] MCHC mass conc (RBC) 31.9 g/dL Normal 30.5-36.0 [facility] Comment on above: Performed By: #### P T, PTT, AMYL, CMP, LIPA, PHOS ####[place] [address]#### TRANSF ####[place] [address] MCV 79.3 fL Low 80.0-100.0 [facility] Comment on above: Performed By: #### P T, PTT, AMYL, CMP, LIPA, PHOS ####[place] [address]#### TRANSF ####[place] [address] Monocytes/100 leukocytes 5.8 % Normal [facility] Comment on above: Performed By: #### P T, PTT, AMYL, CMP, LIPA, PHOS ####[place] [address]#### TRANSF ####[place] [address] Neutrophils/100 WBC Auto (Bld) 63.6 % Normal [facility] Comment on above: Performed By: #### P T, PTT, AMYL, CMP, LIPA, PHOS ####[place] [address]#### TRANSF ####[place] [address] Platelet mean volume (PMV) 9.3 fL Normal 9.0-12.7 [facility] Comment on above: Performed By: #### P T, PTT, AMYL, CMP, LIPA, PHOS ####[place] [address]#### TRANSF ####[place] [phone] Platelets 370 10*3/uL Normal 150-400 [facility] Comment on above: Performed By: #### P T, PTT, AMYL, CMP, LIPA, PHOS ####[place] [address]#### TRANSF ####[place] [phone] WBC (Leukocytes) 6.53 10*3/uL Normal 3.70-11.[address] [facility] Comment on above: Performed By: #### P T, PTT, AMYL, CMP, LIPA, PHOS ####[place] [address]#### TRANSF ####[place] [phone] CONSULT PROGon 10-08-2017 CONSULT PROG HNO ID: [id number] thor: Damaris Formanervice: EndocrinologyAuthor Type: PhysicianType: Consult Progress NoteFiled: 10/09/2017 9:48 AMNote Text:ENDOCRINOLOGY PROGRESS NOTEPATIENT NAME: Rocio JacksonMRN: [id number] DATE: 10/08/2017SERVICE TIME: 5:27 PMREASON FOR CONSULT: [...] with pRBC on 10/02/2017 so obtaining a PiW8pwbp will not be helpful. He is receiving [...] Date- ANGIOPLASTY HX 05/15/2011 2 stents s/p [place];[facility]- CHOLECYSTECTOMY 08/11/2017 [facility]- PICC LINE INSERT/CONSULT 08/16/2017No family history on file.Social HistorySubstance Use Topics- Smoking status: Former Smoker Types: Cigarettes Quit date: 2010- Smokeless tobacco: Never Used- Alcohol use 1.5 oz/week 1 Cans of Beer (12oz) per week Comment: occasional beerCURRENT MEDICATION:Current Facility-Administered Medications:insulin glargine 10 Units injection (long acting) (LANTUS) 10 UnitsSUBCUTANEOUS AT BEDTIME Damaris [place] 10 Units at 10/07/17 2100erythromycin ethyl succinate [...] (rapid acting) (HumaLOG) SUBCUTANEOUS q 6 HDorota [place] 1 Units at 10/08/17 1351fentaNYL 50 mcg/mL 25 mcg injection (SUBLIMAZE) 25 mcg INTRAVENOUS q 4 HPRN Allegra Atkins (Saima) Miglionicoacetaminophen 650 mg CUP (TYLENOL) 650 mg ORAL q 6 H Allegra Atkins (Pa)Miglionico 650 mg at 10/08/17 1329oxyCODONE 5 mg oral liquid (ROXICODONE) 5 mg ORAL q 4 H PRN Yrn Cedillo)Gonzalo 5 mg at 10/07/17 3001zkwdnh-jvyawaqz-juiypgw 2 capsule cap(s) (CREON 24) 2 capsule ORAL TID wMEALS Flynn (Res) MD Jane 2 capsule at 10/08/17 0830phenol 1 [place] (CHLORASEPTIC) 1 [place] MUCOUS MEMBRANE (TOPICAL MOUTH ANDTHROAT) q 2 H PRN Kolby (Res) Kevin 1 [place] at 10/02/17 42954.9% NaCl 2-10 mL 2-10 mL INTRAVENOUS q [...] lb 12.3 oz) SpO2 97% BMI 29.77 kg/j8Pwnagdb: Well appearing, sleeping, in no acute distress.Skin: [...] 172 (A) H210/08/2017 1:17 PM 199 (A) W1Ybramegfk Latest Ref Rng AND Units 10/07/2017 10/08/2017 [...] MDDATE: October 08, 2017TIME: 5:27 PM Normal [facility] Comp Metabolic Panelon 10-08 Alanine aminotransferase (ALT) 31 U/L Normal 5-50 [facility] Comment on above: Performed By: #### P T, PTT, AMYL, CMP, LIPA, PHOS ####[address] [phone]#### TRANSF ####[facility] [place], [place] [phone] Albumin 3.3 g/dL Low 3.5-5.0 [facility] Comment on above: Performed By: #### P T, PTT, AMYL, CMP, LIPA, PHOS ####[address] [phone]#### TRANSF ####[place] [phone] Alkaline phosphatase (ALP) 106 U/L Normal 40-150 [facility] Comment on above: Performed By: #### P T, PTT, AMYL, CMP, LIPA, PHOS ####[place] [address]#### TRANSF ####[place] [address] Anion gap 13 mmol/L Normal 9-18 [facility] Comment on above: Performed By: #### P T, PTT, AMYL, CMP, LIPA, PHOS ####[place] [address]#### TRANSF ####[place] [address] Aspartate aminotransferase (AST) 25 U/L Normal 7-40 [facility] Comment on above: Performed By: #### P T, PTT, AMYL, CMP, LIPA, PHOS ####[place] [address]#### TRANSF ####[place] [address] Bilirubin (total) 0.2 mg/dL Normal 0.0-1.5 [facility] Comment on above: Performed By: #### P T, PTT, AMYL, CMP, LIPA, PHOS ####[place] [address]#### TRANSF ####[place] [phone] Calcium 8.8 mg/dL Normal 8.5-10.5 [facility] Comment on above: Performed By: #### P T, PTT, AMYL, CMP, LIPA, PHOS ####[place] [address]#### TRANSF ####[place] [address] [place] [phone] Chloride 102 mmol/L Normal 98-110 [facility] Comment on above: Performed By: #### P T, PTT, AMYL, CMP, LIPA, PHOS ####[place] [address]#### TRANSF ####[place] [address] CO2 26 mmol/L Normal 23-32 [facility] Comment on above: Performed By: #### P T, PTT, AMYL, CMP, LIPA, PHOS ####[place] [address]#### TRANSF ####[place] [address] Creatinine 0.55 mg/dL Low 0.70-1.40 [facility] Comment on above: Performed By: #### P T, PTT, AMYL, CMP, LIPA, PHOS ####[place] [address]#### TRANSF ####[place] [address] eGFR (non-black) mL/min/{1.73_m2} Normal >60 [facility] Comment on above: Performed By: #### P T, PTT, AMYL, CMP, LIPA, PHOS ####[address]#### TRANSF ####[place] [address] Glucose mass conc 152 mg/dL High 65-100 [facility] Comment on above: Performed By: #### P T, PTT, AMYL, CMP, LIPA, PHOS ####[place] [address]#### TRANSF ####[place] [address] Potassium molar conc 3.8 mmol/L Normal 3.5-5.0 [facility] Comment on above: Performed By: #### P T, PTT, AMYL, CMP, LIPA, PHOS ####[place] [address]#### TRANSF ####[place] [address] Protein 6.7 g/dL Normal 6.0-8.4 [facility] Comment on above: Performed By: #### P T, PTT, AMYL, CMP, LIPA, PHOS ####[place] [address]#### TRANSF ####[place] [address] Sodium 141 mmol/L Normal 135-146 [facility] Comment on above: Performed By: #### P T, PTT, AMYL, CMP, LIPA, PHOS ####[place] [address]#### TRANSF ####[place] [address] Urea nitrogen 18 mg/dL Normal 10-25 [facility] Comment on above: Performed By: #### P T, PTT, AMYL, CMP, LIPA, PHOS ####[place] [address]#### TRANSF ####[place] [phone] NURSING PROGon 10-08-2017 NURSING PROG HNO ID: [id number] thor: Reggie (Rn) MOUSTAPHA Sawantervice: (none)Author Type: Registered NurseType: Nursing Progress NoteFiled: 10/08/2017 8:55 AMNote Text: Nursing Progress NotePatient Name: Rocio HayesN: [id number] Location[facility]3B17/HU-ZS0W-88 ____Daily Note: Mr. Jackson awake and alert [...] note was completed by: Reggie Sawant RN [facility] PROGRESSon 10-08-2017 PROGRESS HNO ID: [id number] thor: Salvador (ASHLEY Dominguezervice: General SurgeryAuthor Type: ResidentType: Progress NotesFiled: 10/08/2017 9:38 AMNote Text:SURGICAL SERVICES PROGRESS NOTENAME: Rocio HayesN: [id number]: 10/08/2017Time: 8:16 JUDIE DATE: 09/30/20178 Days Post-OpProcedure(s) [...] on POD 3 nml, removed. Transferred to [facility]??Patient did well overnight with no acute [...] lb 12.3 oz) SpO2 97% BMI 29.77 kg/o0Czvnae/Output Summary (Last 24 hours) at 10/08/17 0936Last [...] values in this interval not displayed.CoagsRecent Labs 09/24/1808594315GEHO 25.9 24.9 -- -- 39.8* 31.6INR 1.2 1.1 1.0 2.0* 2.0* 1.5*Poonam Fisher, PGY-1 - General SurgeryPager [phone] [facility] ALLIED HEALTHon 10-07-2017 ALLIED HEALTH HNO ID: [id number] thor: Allegra (Rt) Sally Espitiae: RadiologyAuthor Type: TechnicianType: Allied HealthFiled: 10/07/2017 12:43 PMNote Text: Radiology Service Progress NotePATIENT NAME: Rocio HayesN: [id number] OF SERVICE: October 07, 2017TIME: 12:42 PMPATIENT IDENTITY VERIFICATION COMPLETED USING TWO (2) METHODS: Patientconfirmed name verbally and ID band matches..PATIENT GENDER DATA: MalePATIENT RELEVANT IMPLANT DATA REVIEWED: Not ApplicableRADIOLOGY DEPARTMENT: General X-ray: Exam(s) Completed: Chest X-RayAbdomen X-Ray Abdomen Supine / AP ErectPERIPHERAL IV DATA: Not applicableSIGNED BY: Omkar Dinh RTApril 2017 12:42 PM [facility] CASE MANAGEMon 10-07-2017 CASE MANAGEM HNO ID: [id number] thor: Clementina Culver (Lsw)uloService: Care ManagementAuthor Type: [...] ratings. Pt [facility]. Per Pt and sisters they would like toreview list and facilities and provided choices in the morning. CMdiscussed w/nursing.SIGNATURE: TRACI Hammer PATIENT NAME: Rocio JacksonDATE: October 07, 2017 : 12:32 PM PAGER/CONTACT #: [phone] Normal [facility] CBC and Differentialon 10-07 Abs Baso <0.03 Normal <0.11 [facility] Comment on above: Performed By: #### P T, PTT, AMYL, CMP, LIPA, PHOS ####[place] [address]#### TRANSF ####[place] [address] Abs Elmore 0.49 k/uL Normal <0.87 [facility] Comment on above: Performed By: #### P T, PTT, AMYL, CMP, LIPA, PHOS ####[phone]#### TRANSF ####[place] [phone] Abs Neut 4.36 k/uL Normal 1.45-7.50 [facility] Comment on above: Performed By: #### P T, PTT, AMYL, CMP, LIPA, PHOS ####[place] [address]#### TRANSF ####[place] [address] Basophils/100 WBC Auto (Bld) 0.1 % Normal [facility] Comment on above: Performed By: #### P T, PTT, AMYL, CMP, LIPA, PHOS ####[place] [address]#### TRANSF ####[place] [address] DTYPE Auto Diff [facility] Comment on above: Performed By: #### P T, PTT, AMYL, CMP, LIPA, PHOS ####[place] [address]#### TRANSF ####[place] [address] Eosinophils 0.04 10*3/uL Normal <0.46 [facility] Comment on above: Performed By: #### P T, PTT, AMYL, CMP, LIPA, PHOS ####[place] [address]#### TRANSF ####[place] [address] Eosinophils/100 leukocytes 0.6 % Normal [facility] Comment on above: Performed By: #### P T, PTT, AMYL, CMP, LIPA, PHOS ####[place] [address]#### TRANSF ####[address] [place] [place] [address] Erythrocyte distribution width Auto Ratio (RBC) 16.8 % High 11.5-15.0 [facility] Comment on above: Performed By: #### P T, PTT, AMYL, CMP, LIPA, PHOS ####[place] [address]#### TRANSF ####[place] [phone] Erythrocytes (RBC) 3.55 10*6/uL Low 4.20-6.00 [facility] Comment on above: Performed By: #### P T, PTT, AMYL, CMP, LIPA, PHOS ####[place] [address]#### TRANSF ####[place] [address] Hematocrit (HCT) 28.9 % Low 39.0-51.0 [facility] Comment on above: Performed By: #### P T, PTT, AMYL, CMP, LIPA, PHOS ####[place] [address]#### TRANSF ####[place] [address] Hemoglobin mass conc (Bld) 8.9 g/dL Low 13.0-17.0 [facility] Comment on above: Performed By: #### P T, PTT, AMYL, CMP, LIPA, PHOS ####[place] [address]#### TRANSF ####[place] [address] Lymphocytes 1.89 10*3/uL Normal 1.00-4.00 [facility] Comment on above: Performed By: #### P T, PTT, AMYL, CMP, LIPA, PHOS ####[place] [address]#### TRANSF ####[place] [phone] Lymphocytes/100 leukocytes 27.8 % Normal [facility] Comment on above: Performed By: #### P T, PTT, AMYL, CMP, LIPA, PHOS ####[place] [address]#### TRANSF ####[place] [address] MCH 25.1 pG Low 26.0-34.0 [facility] Comment on above: Performed By: #### P T, PTT, AMYL, CMP, LIPA, PHOS ####[place] [address]#### TRANSF ####[place] [address] MCHC mass conc (RBC) 30.8 g/dL Normal 30.5-36.0 [facility] Comment on above: Performed By: #### P T, PTT, AMYL, CMP, LIPA, PHOS ####[place] [address]#### TRANSF ####[place] [address] MCV 81.4 fL Normal 80.0-100.0 [facility] Comment on above: Performed By: #### P T, PTT, AMYL, CMP, LIPA, PHOS ####[place] [address]#### TRANSF ####[place] [address] Monocytes/100 leukocytes 7.2 % Normal [facility] Comment on above: Performed By: #### P T, PTT, AMYL, CMP, LIPA, PHOS ####[place] [address]#### TRANSF ####[place] [address] Neutrophils/100 WBC Auto (Bld) 64.3 % Normal [facility] Comment on above: Performed By: #### P T, PTT, AMYL, CMP, LIPA, PHOS ####[place] [address]#### TRANSF ####[place] [address] Platelet mean volume (PMV) 9.2 fL Normal 9.0-12.7 [facility] Comment on above: Performed By: #### P T, PTT, AMYL, CMP, LIPA, PHOS ####[place] [address]#### TRANSF ####[place] [address] Platelets 329 10*3/uL Normal 150-400 [facility] Comment on above: Performed By: #### P T, PTT, AMYL, CMP, LIPA, PHOS ####[place] [address]#### TRANSF ####[place] [address] WBC (Leukocytes) 6.79 10*3/uL Normal 3.70-11.[address] [facility] Comment on above: Performed By: #### P T, PTT, AMYL, CMP, LIPA, PHOS ####[place] [address]#### TRANSF ####[place] [address] Comp Metabolic Panelon 10-07 Alanine aminotransferase (ALT) 32 U/L Normal 5-50 [facility] Comment on above: Performed By: #### P T, PTT, AMYL, CMP, LIPA, PHOS ####[address]#### TRANSF ####[place] [phone] Albumin 3.2 g/dL Low 3.5-5.0 [facility] Comment on above: Performed By: #### P T, PTT, AMYL, CMP, LIPA, PHOS ####[place] [address]#### TRANSF ####[place] [address] Alkaline phosphatase (ALP) 106 U/L Normal 40-150 [facility] Comment on above: Performed By: #### P T, PTT, AMYL, CMP, LIPA, PHOS ####[place] [address]#### TRANSF ####[place] [address] Anion gap 11 mmol/L Normal 9-18 [facility] Comment on above: Performed By: #### P T, PTT, AMYL, CMP, LIPA, PHOS ####[place] [address]#### TRANSF ####[place] [id number] Aspartate aminotransferase (AST) 30 U/L Normal 7-40 [facility] Comment on above: Performed By: #### P T, PTT, AMYL, CMP, LIPA, PHOS ####[place] [address]#### TRANSF ####[place] [address] Bilirubin (total) 0.2 mg/dL Normal 0.0-1.5 [facility] Comment on above: Performed By: #### P T, PTT, AMYL, CMP, LIPA, PHOS ####[place] [address]#### TRANSF ####[place] [address] Calcium 8.8 mg/dL Normal 8.5-10.5 [facility] Comment on above: Performed By: #### P T, PTT, AMYL, CMP, LIPA, PHOS ####[place] [address]#### TRANSF ####[place] [address] Chloride 104 mmol/L Normal 98-110 [facility] Comment on above: Performed By: #### P T, PTT, AMYL, CMP, LIPA, PHOS ####[place] [address]#### TRANSF ####[place] [address] CO2 27 mmol/L Normal 23-32 [facility] Comment on above: Performed By: #### P T, PTT, AMYL, CMP, LIPA, PHOS ####[place] [address]#### TRANSF ####[place] [address] Creatinine 0.60 mg/dL Low 0.70-1.40 [facility] Comment on above: Performed By: #### P T, PTT, AMYL, CMP, LIPA, PHOS ####[place] [address]#### TRANSF ####[place] [address] eGFR (non-black) mL/min/{1.73_m2} Normal >60 [facility] Comment on above: Performed By: #### P T, PTT, AMYL, CMP, LIPA, PHOS ####[place] [address]#### TRANSF ####[place] [address] [place] [address] Glucose mass conc 175 mg/dL High 65-100 [facility] Comment on above: Performed By: #### P T, PTT, AMYL, CMP, LIPA, PHOS ####[place] [address]#### TRANSF ####[address] [place] [place] [address] Potassium molar conc 4.1 mmol/L Normal 3.5-5.0 [facility] Comment on above: Performed By: #### P T, PTT, AMYL, CMP, LIPA, PHOS ####[place] [address]#### TRANSF ####[place] [address] Protein 6.6 g/dL Normal 6.0-8.4 [facility] Comment on above: Performed By: #### P T, PTT, AMYL, CMP, LIPA, PHOS ####[place] [address]#### TRANSF ####[place] [address] Sodium 142 mmol/L Normal 135-146 [facility] Comment on above: Performed By: #### P T, PTT, AMYL, CMP, LIPA, PHOS ####[place] [address]#### TRANSF ####[place] [address] Urea nitrogen 20 mg/dL Normal 10-25 [facility] Comment on above: Performed By: #### P T, PTT, AMYL, CMP, LIPA, PHOS ####[place] [address]#### TRANSF ####[place] [address] [place], [place] [phone] Magnesiumon 10-07-2017 Magnesium 2.0 mg/dL Normal 1.7-2.6 [facility] Comment on above: Performed By: #### P T, PTT, AMYL, CMP, LIPA, PHOS ####[facility] [place] [phone]#### TRANSF ####[facility] [place], [place] [phone] NURSING PROGon 10-07-2017 NURSING PROG HNO ID: [id number] thor: Kevin (Rn) Clayton Walkerice: (none)Author Type: Registered NurseType: Nursing Progress NoteFiled: 10/07/2017 9:41 PMNote Text: Nursing Progress NotePatient Name: Rocio JacksonN: [id number] Location: [address] ____Daily Note:Pt medicated per MAR. Pt AANDO x3. Pt with minimal pain- Administeredscheduled Tyl per orders. No SOB or headache. IV capped per orders. RUQdrain clamped per orders. Corpak with tube feed infusing per orders.Incision to abdomen- ADELA- C,D,I. No further needs. Call werner within reach.This note was completed by: KEVIN WALKER RN [facility] NURSING PROG HNO ID: [id number] thor: Saima Kramer (Rn) Bhupinder Richardson: (none)Author Type: Registered NurseType: Nursing Progress NoteFiled: 10/07/2017 6:57 PMNote Text: Nursing Progress NotePatient Name: Rocio JacksonN: [id number] Location: [place] [address]/[id number] ____Daily Note:Pt resting in the bed and [...] note was completed by: Saima Richardson RN [facility] NURSING PROG HNO ID: [id number] thor: Kevin (Rn) Shanell, MOUSTAPHAervice: (none)Author Type: Registered NurseType: Nursing Progress NoteFiled: 10/07/2017 1:21 AMNote Text: Nursing Progress NotePatient Name: Rocio Boudreaux: [id number] Location: [place] [address]/[id number] ____Daily Note:2330- Took over care for pt. Pt assessed. Pt medicated per AUG. Pt AANDO x3.Pt with minimal pain- Administered scheduled Tyl per orders. No SOB orheadache. IV capped per orders. RUQ drain clamped per orders. Corpak withtube feed infusing per orders. Incision to abdomen- ADELA- C,D,I. No furtherneeds. Call werner within reach.This note was completed by: KEVIN WALKER RN [facility] PLAN OF CAREon 10-07-2017 PLAN OF CARE HNO ID: [id number] thor: Macie Cruz (Pharmacist)Service: PharmacyAuthor Type: PharmacistType: Plan of CareFiled: 10/07/2017 2:09 PMNote Text:MEDICATION HISTORY AND MEDICATION RECONCILIATIONPatient Name:Destiney JacksonMRN: [id number]: 1955Source of history:Family: Reliability of source: Appears reliable,clearly identified: Medication name, Medication dose, Medication route,Medication frequency and IndicationsMedication Nonadherence Identified: No barriers notedThe above information represents the best possible medication history: YesReconciliation completed? Yes All COMMODITY BUYER medications addressed by LIPAdditional comments: N/AAllergies: ALLERGIESNo Known AllergiesCurrent COMMODITY BUYER Medications:Prior to Admission medications as of 10/07/17 [...] at 0900YePadmini Cruz PharmacistApril 2017 2:09 PM [facility] PROGRESSon 10-07-2017 PROGRESS HNO ID: [id number] thor: Harmony (Georges) Rondae: General SurgeryAuthor Type: ResidentType: Progress NotesFiled: 10/07/2017 8:27 AMNote Text:SURGICAL SERVICES PROGRESS NOTENAME: Rocio JacksonMRN: [id number]: 10/07/2017Time: 8:16 JUDIE DATE: 09/30/20177 Days Post-OpProcedure(s) [...] on POD 3 nml, removed. Transferred to [facility]??Patient did well overnight with no acute [...] ac/hsfor DGE- IPCs, SQH- Continue care on [facility]; will begin disposition planning todayPHYSICAL EXAM:GENERAL: AOx3, NADLUNGS: Nonlabored breathingABDOMEN: Soft, non-distendedSKIN: Warm, well perfusedBP 147/79 Pulse 63 Temp 37.3 ?C (99.1 ?F) (Oral) Resp 16 Ht 172.7cm (5' 7.99 ) Wt 88.8 kg (195 lb 12.3 oz) SpO2 97% BMI 29.77 kg/m2Date 10/06/17 0700 - 10/07/17 0659 10/07/17 07 - 10/08/17 0659Shift 6427-6740 8034-3785 9282-2154 24 Hour Total 9133-3261 1564-74759700-5002 24 Hour TotalINTAKE PO 956 956 Tube Feed Intake (GI Feed/Drain 09/30/17 Small Bore Feeding Right Naris10 Fr) 956 956 Irrigants 5 5 100 110 Irrigant/Flush Amount In (Drain/Tube 08/27/17 Admission to HospitalRight Upper Quadrant Abdomen Drain #3) 5 5 10 Irrigant/Flush Amount In (GI Feed/Drain 09/30/17 Small Bore FeedingRight Naris 10 Fr) 100 100 Shift Total 5 5 1056 1066OUTPUT Urine 400 214 922 4725 Void (ml) 400 149 424 8286 Emesis 150 150 Emesis (ml) 150 150 [...] 10/07/2017NURY Mejia II general surgery 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-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 [phone] - Personal Normal [facility] PT EDon 10-07-2017 PT ED HNO ID: [id number] thor: Macie Cruz (Pharmacist)Service: PharmacyAuthor Type: PharmacistType: Patient EducationFiled: 10/07/2017 2:13 PMNote Text:Clinical Pharmacy ServicesHigh Risk: Daily Medication AssessmentPatient Name: Rocio HayesN: [id number] Date: 09/30/2017Sere Date and Time: 10/07/2017 2:12 PMNew MedicationsThe following medications have been started since last pharmacy review:naloxone, oxycodone, chloraceptic, scopolamineMedication education has been completed: YesSignature: Macie Cruz PharmacistFairview: [phone]: [phone] [facility] PT ED HNO ID: [id number] thor: Macie Cruz (Pharmacist)Service: PharmacyAuthor Type: PharmacistType: Patient EducationFiled: 10/07/2017 2:12 PMNote Text:Clinical Pharmacy ServicesHigh Risk: Daily Medication AssessmentPatient Name: Rocio HayesN: [id number] Date: 09/30/2017Sere Date and Time: 10/07/2017 2:11 PMNew MedicationsThe following medications have been started since last pharmacy review:lantus, humalog, creon, magnesium, metoclopramideMedication education has been completed: YesSignature: Macie Cruz PharmacistFairview: [phone]: [phone] [facility] PT ED HNO ID: [id number] thor: Macie Cruz (Pharmacist)Service: PharmacyAuthor Type: PharmacistType: Patient EducationFiled: 10/07/2017 2:11 PMNote Text:Clinical Pharmacy ServicesHigh Risk: Daily Medication AssessmentPatient Name: Rocio HayesN: [id number] Date: 09/30/2017Sere Date and Time: 10/07/2017 2:10 PMNew MedicationsThe following medications have been started since last pharmacy review:dextrose, glucagon, erythromycin, fentanyl, heparinMedication education has been completed: YesSignature: Macie Cruz PharmacistFairview: [phone]: [phone] [facility] Phosphoruson 10-07-2017 Phosphate 3.0 mg/dL Normal 2.5-4.5 [facility] Comment on above: Performed By: #### P T, PTT, AMYL, CMP, LIPA, PHOS ####[facility] [place], [place] [phone]#### TRANSF ####[facility] [address] [place], [place] [phone] THERAPY NTon 10-07-2017 THERAPY NT HNO ID: [id number] thor: Adela ([facility]) Jhonatane: Physical TherapyAuthor Type: Physical Therapy AssistantType: Therapy (PT/OT/Speech/Resp)Filed: 10/07/2017 11:18 AMNote Text: -Attestation signed by Tonia Schmitz at 10/07/2017 12:03 PMI reviewed and agree with the documentation corresponding to this therapyvisit.SIGNATURE: Tonia Schmitz, PTDATE: October 07, 2017TIME: 12:03 PM Ph ysical Therapy TreatmentSERVICE DATE: 10/07/2017SERVICE TIME: 1000 to 1025ROOM: [id number]/p Debra procedureRecommended Discharge Disposition: Home PTRecommended Discharge Disposition Comments: ([facility] )Justification For Post Acute Needs: Willing toparticipate;Motivated;Destinee [...] sister present [facility] PT follow up. Pt [...] l symptoms and signs-otherInterventions Provided: Therapeutic Exercise (02620);Gait Training (25217)Therapeutic Exercise (54981) Treatment Minutes: 101 unitSkilled Intervention(s): Instruction in therapeutic exercise in sittingposition for B LE strengtheningVerbal and tactile cuing provided for performance and pace.Gait Training (82598) Treatment Minutes: 151 unitSkilled Intervention(s): Instruction in [...] mobility assessmentRelevant Past Medical History: HTN, DM, [place], richelle 08/11/17, ARF, refer tochart for full [...] has assist with all IADLs. Works in [employer]. Amb Ind.OBJECTIVE:Mini Cog Score: 1 (10/02/17 0820)CURRENT [...] 07, 2017 : 11:15 AM PAGER/CONTACT #: [phone] [facility] XR ABD 2V SUPINE W UPR/DECUB /CTLon [...] MACK MD on Oct 07 2017 1:03PM [id number] [facility] XR CHEST 1V FRONTALon 2017 XR CHEST [...] silhouette: Normal cardiomediastinal silhouette.Other: .IMPRESSION:No acute radiographic abnormality.Sleep Manager : NII Transcribe Date/Time: Oct 07 2017 12:50PDictated by : RENATE MACK MDThis examination was interpreted and the report reviewed and electronically signed by: RENATE MACK MD on Oct 07 2017 1:02PM [id number] [facility] ALLIED HEALTHon 10-06-2017 ALLIED HEALTH HNO ID: [id number] thor: Sally Santoyo (Rt)e: RadiologyAuthor Type: TechnicianType: Allied HealthFiled: 10/06/2017 6:41 AMNote Text: Radiology Service Progress NotePATIENT NAME: Rocio JacksonMRN: [id number] OF SERVICE: October 06, 2017TIME: 6:34 AMPATIENT IDENTITY VERIFICATION COMPLETED USING TWO (2) METHODS: Patientconfirmed name verbally and ID band matches..PATIENT GENDER DATA: MalePATIENT RELEVANT IMPLANT DATA REVIEWED: Not ApplicableRADIOLOGY DEPARTMENT: General X-ray: Exam(s) Completed: Abdomen X-RayAbdomenPERIPHERAL IV DATA: Not applicableSIGNED BY: Richelle Santoyoil 2017 6:41 AM [facility] CASE MANAGEMon 10-06-2017 CASE MANAGEM HNO ID: [id number] thor: Norberto Arechiga (Sw)umboService: Care ManagementAuthor Type: Social WorkerType: Care Mgt Progress NoteFiled: 10/06/2017 12:29 PMNote Text:MULTIDISCIPLINARY ROUNDSSERVICE DATE: 10/06/2017 ADMISSION DATE: 09/30/2017SERVICE TIME: 12:27 PM ANTICIPATED D/C DATE: 10/07/2017Problem List:ACTIVE PROBLEM LISTDuodenal ObstructionSevere Protein-Calorie Malnutrition (Hcc)Duodenal Cancer (Hcc)Attendees Present at Rounds:Stage Set Designer:Nurse Leasing Consultant/Travel Registered Nurse Oncology Nurse Leasing Consultant:Traveling Repair Accountant:Staff Nurse:Needs Discussed on Rounds:Discharge NeedsAnticipated Discharge Disposition:Home with Home Health CareLast Vitals: BP 132/80 Pulse 79 Temp (Src) 98.7 (Oral) Resp 16 Ht5' 7.992 (1.73m) Wt 195 lb 12.3 oz (88.8kg) SpO2 96% BMI 29.77kg/(m2).Pt plans on going to his sister's house at d/c. [facility]TAand [facility]/c. [...] 10/08/17DOCUMENTED BY: MARINO Lopez PATIENT NAME: Rocio VizcarraTE: October 06, 2017 : 12:27 PM CSN: [id number] Normal [facility] CBC and Differentialon 10-06 Abs Baso <0.03 Normal <0.11 [facility] Comment on above: Performed By: #### P T, PTT, AMYL, CMP, LIPA, PHOS ####[place] [address]#### TRANSF ####[place] [address] Abs Elmore 0.46 k/uL Normal <0.87 [facility] Comment on above: Performed By: #### P T, PTT, AMYL, CMP, LIPA, PHOS ####[place] [address]#### TRANSF ####[place] [address] Abs Neut 4.56 k/uL Normal 1.45-7.50 [facility] Comment on above: Performed By: #### P T, PTT, AMYL, CMP, LIPA, PHOS ####[place] [address]#### TRANSF ####[place] [address] Basophils/100 WBC Auto (Bld) 0.1 % Normal [facility] Comment on above: Performed By: #### P T, PTT, AMYL, CMP, LIPA, PHOS ####[place] [address]#### TRANSF ####[place] [address] DTYPE Auto Diff Normal [facility] Comment on above: Performed By: #### P T, PTT, AMYL, CMP, LIPA, PHOS ####[place] [address]#### TRANSF ####[place] [address] Eosinophils 0.03 10*3/uL Normal <0.46 [facility] Comment on above: Performed By: #### P T, PTT, AMYL, CMP, LIPA, PHOS ####[place] [address]#### TRANSF ####[place] [address] Eosinophils/100 leukocytes 0.4 % Normal [facility] Comment on above: Performed By: #### P T, PTT, AMYL, CMP, LIPA, PHOS ####[place] [address]#### TRANSF ####[place] [address] Erythrocyte distribution width Auto Ratio (RBC) 16.5 % High 11.5-15.0 [facility] Comment on above: Performed By: #### P T, PTT, AMYL, CMP, LIPA, PHOS ####[place] [address]#### TRANSF ####[place] [address] Erythrocytes (RBC) 3.91 10*6/uL Low 4.20-6.00 [facility] Comment on above: Performed By: #### P T, PTT, AMYL, CMP, LIPA, PHOS ####[place] [address]#### TRANSF ####[place] [address] Hematocrit (HCT) 31.3 % Low 39.0-51.0 [facility] Comment on above: Performed By: #### P T, PTT, AMYL, CMP, LIPA, PHOS ####[place] [address]#### TRANSF ####[place] [address] Hemoglobin mass conc (Bld) 10.0 g/dL Low 13.0-17.0 [facility] Comment on above: Performed By: #### P T, PTT, AMYL, CMP, LIPA, PHOS ####[place] [address]#### TRANSF ####[place] [address] Lymphocytes 1.97 10*3/uL Normal 1.00-4.00 [facility] Comment on above: Performed By: #### P T, PTT, AMYL, CMP, LIPA, PHOS ####[place] [address]#### TRANSF ####[place] [address] Lymphocytes/100 leukocytes 28.0 % Normal [facility] Comment on above: Performed By: #### P T, PTT, AMYL, CMP, LIPA, PHOS ####[place] [address]#### TRANSF ####[place] [address] MCH 25.6 pG Low 26.0-34.0 [facility] Comment on above: Performed By: #### P T, PTT, AMYL, CMP, LIPA, PHOS ####[place] [address]#### TRANSF ####[place] [address] MCHC mass conc (RBC) 31.9 g/dL Normal 30.5-36.0 [facility] Comment on above: Performed By: #### P T, PTT, AMYL, CMP, LIPA, PHOS ####[place] [address]#### TRANSF ####[place] [address] MCV 80.1 fL Normal 80.0-100.0 [facility] Comment on above: Performed By: #### P T, PTT, AMYL, CMP, LIPA, PHOS ####[place] [address]#### TRANSF ####[place] [address] Monocytes/100 leukocytes 6.5 % Normal [facility] Comment on above: Performed By: #### P T, PTT, AMYL, CMP, LIPA, PHOS ####[place] [address]#### TRANSF ####[place] [address] Neutrophils/100 WBC Auto (Bld) 65.0 % Normal [facility] Comment on above: Performed By: #### P T, PTT, AMYL, CMP, LIPA, PHOS ####[address]#### TRANSF ####[place] [address] Platelet mean volume (PMV) 9.2 fL Normal 9.0-12.7 [facility] Comment on above: Performed By: #### P T, PTT, AMYL, CMP, LIPA, PHOS ####[address] [phone]#### TRANSF ####[address] [phone] Platelets 358 10*3/uL Normal 150-400 [facility] Comment on above: Performed By: #### P T, PTT, AMYL, CMP, LIPA, PHOS ####[place] [address]#### TRANSF ####[address] [phone] WBC (Leukocytes) 7.03 10*3/uL Normal 3.70-11.[address] [facility] Comment on above: Performed By: #### P T, PTT, AMYL, CMP, LIPA, PHOS ####[place] [phone]#### TRANSF ####[address] [phone] CONSULT PROGon 10-06-2017 CONSULT PROG HNO ID: [id number] thor: Damaris Rojasice: EndocrinologyAuthor Type: PhysicianType: Consult Progress NoteFiled: 10/06/2017 5:16 PMNote Text:ENDOCRINOLOGY PROGRESS NOTEPATIENT NAME: Rocio JacksonMRN: [id number] DATE: 10/06/2017SERVICE TIME: 5:07 PMREASON FOR CONSULT: [...] with pRBC on 10/02/2017 so obtaining a FjF5dywo will not be helpful. Low dose Lantus was started yesterday. Bloodglucose in the 200 mg/dL range today. Patient is sleeping when I visithim today with family by bedside.PAST MEDICAL HISTORYDiagnosis Date- Bleeding ulcer 11/15/2016 required 5 blood transfusions- Diabetes mellitus (HCC) 2016- Glaucoma- Hypertension- Myocardial infarction (HCC) 05/15/2011PAST SURGICAL HISTORYProcedure Laterality Date- ANGIOPLASTY HX 05/15/2011 2 stents s/p [place];[facility]- CHOLECYSTECTOMY 08/11/2017 [facility]- PICC LINE INSERT/CONSULT 08/16/2017No family history on [...] PRN Yrn Cedillo)Gonzalo 5 mg at 10/05/17 7171nhrrfm-xqanrvkw-vjxdetr 2 capsule cap(s) (CREON 24) 2 capsule ORAL TID wMEALMilly Pruett (Res) MD Jane 2 capsule at 10/04/17 1740phenol 1 [place] (CHLORASEPTIC) 1 [place] MUCOUS MEMBRANE (TOPICAL MOUTH ANDTHROAT) q 2 H PRN Kolby (Res) Kevin 1 [place] at 10/02/17 53942.9% NaCl 2-10 mL 2-10 mL INTRAVENOUS q 12 H Mundo (Res)(Hist) Juolyik74 mL at 10/06/17 0842naloxone 0.2 mg injection [...] lb 12.3 oz) SpO2 96% BMI 29.77 kg/l0Etzlhov: Well appearing, sleeping, in no acute distress.Skin: [...] 212 (A) 21/04/2018 12:12 PM 237 (A) [id number] Latest Ref Rng AND Units 10/06/2017 5:51 [...] MDDATE: October 06, 2017TIME: 5:07 PM Normal [facility] Comp Metabolic Panelon 10-06 Alanine aminotransferase (ALT) 28 U/L Normal 5-50 [facility] Comment on above: Performed By: #### P T, PTT, AMYL, CMP, LIPA, PHOS ####[place] [address]#### TRANSF ####[place] [address] Albumin 3.4 g/dL Low 3.5-5.0 [facility] Comment on above: Performed By: #### P T, PTT, AMYL, CMP, LIPA, PHOS ####[place] [address]#### TRANSF ####[place] [address] Alkaline phosphatase (ALP) 108 U/L Normal 40-150 [facility] Comment on above: Performed By: #### P T, PTT, AMYL, CMP, LIPA, PHOS ####[place] [address]#### TRANSF ####[place] [address] Anion gap 16 mmol/L Normal 9-18 [facility] Comment on above: Performed By: #### P T, PTT, AMYL, CMP, LIPA, PHOS ####[place] [address]#### TRANSF ####[place] [address] Aspartate aminotransferase (AST) 23 U/L Normal 7-40 [facility] Comment on above: Performed By: #### P T, PTT, AMYL, CMP, LIPA, PHOS ####[place] [address]#### TRANSF ####[place] [address] Bilirubin (total) 0.2 mg/dL Normal 0.0-1.5 [facility] Comment on above: Performed By: #### P T, PTT, AMYL, CMP, LIPA, PHOS ####[place] [address]#### TRANSF ####[place] [address] Calcium 9.2 mg/dL Normal 8.5-10.5 [facility] Comment on above: Performed By: #### P T, PTT, AMYL, CMP, LIPA, PHOS ####[place] [address]#### TRANSF ####[place] [address] Chloride 103 mmol/L Normal 98-110 [facility] Comment on above: Performed By: #### P T, PTT, AMYL, CMP, LIPA, PHOS ####[place] [address]#### TRANSF ####[place] [address] CO2 24 mmol/L Normal 23-32 [facility] Comment on above: Performed By: #### P T, PTT, AMYL, CMP, LIPA, PHOS ####[address]#### TRANSF ####[place] [address] Creatinine 0.54 mg/dL Low 0.70-1.40 [facility] Comment on above: Performed By: #### P T, PTT, AMYL, CMP, LIPA, PHOS ####[place] [address]#### TRANSF ####[place] [address] eGFR (non-black) mL/min/{1.73_m2} Normal >60 [facility] Comment on above: Performed By: #### P T, PTT, AMYL, CMP, LIPA, PHOS ####[place] [address]#### TRANSF ####[place] [address] Glucose mass conc 208 mg/dL High 65-100 [facility] Comment on above: Performed By: #### P T, PTT, AMYL, CMP, LIPA, PHOS ####[address]#### TRANSF ####[place] [address] Potassium molar conc 4.3 mmol/L Normal 3.5-5.0 [facility] Comment on above: Performed By: #### P T, PTT, AMYL, CMP, LIPA, PHOS ####[place] [address]#### TRANSF ####[place] [address] Protein 7.3 g/dL Normal 6.0-8.4 [facility] Comment on above: Performed By: #### P T, PTT, AMYL, CMP, LIPA, PHOS ####[place] [address]#### TRANSF ####[place] [address] Sodium 143 mmol/L Normal 135-146 [facility] Comment on above: Performed By: #### P T, PTT, AMYL, CMP, LIPA, PHOS ####[place] [address]#### TRANSF ####[place] [address] Urea nitrogen 16 mg/dL Normal 04-22 [facility] Comment on above: Performed By: #### P T, PTT, AMYL, CMP, LIPA, PHOS ####[place] [address]#### TRANSF ####[place] [address] Magnesiumon 10-06-2017 Magnesium 2.0 mg/dL Normal 1.7-2.6 [facility] Comment on above: Performed By: #### P T, PTT, AMYL, CMP, LIPA, PHOS ####[place] [address]#### TRANSF ####[place] [address] NURSING PROGon 10-06-2017 NURSING PROG HNO ID: [id number] thor: Pramod (Rn) Clayton Mckennaice: (none)Author Type: Registered NurseType: Nursing Progress NoteFiled: 10/06/2017 6:57 PMNote Text: Nursing Progress NotePatient Name: Rocio HayesN: [id number] Location: [place] [address]/[id number] ____Daily Note:10/06/17 0800 (late entry)- Patient is [...] was completed by: Pramod Mckenna RN Normal [facility] NURSING PROG HNO ID: [id number] thor: Jennifer Humphries (Rn) MOUSTAPHA Websterervice: (none)Author Type: Registered NurseType: Nursing Progress NoteFiled: 10/06/2017 6:15 AMNote Text: Nursing Progress NotePatient Name: Rocio Boudreaux: [id number] Location: [place] [address]/[id number] ____ Text page sent to operating room surgical technician to notify again that pt had [id number] emesis of bile (no tube feed color in any emesis tonight).This note was completed by: Jennifer Webster RN [facility] NURSING PROG HNO ID: [id number] thor: Jennifer Humphries (Rn) Eleanor, RNService: (none)Author Type: Registered NurseType: Nursing Progress NoteFiled: 10/06/2017 3:17 AMNote Text: Nursing Progress NotePatient Name: Rocio JacksonMRN: [id number] Location: [place] [address]/[id number] ____ Pt with two episodes of emesis [...] note was completed by: Jennifer Webster RN [facility] NUTRITIONon 10-06-2017 NUTRITION HNO ID: [id number] thor: Alise Segura) BlayneaService: Nutrition TherapyAuthor Type: [...] 81 kgResting Metabolic Rate: 1599Estimated kilocalorie needs: 7261-2596 kilocalories determined by 20-25kcal/kgEstimated protein needs: 105-138 grams determined by 1.3-1.7 g/kg DosingweightEstimated fluid needs: 6581-3631 milliliters based on 1 mL per kcalNUTRITION [...] lb 12.3 oz) SpO2 96% BMI 29.77 kg/f0Vbxrzm Labs GLUC 208*BUN 16CREAT 0.54*NA 143K 4.3CHLOR [...] (ROXICODONE) 5 mg ORAL q 4 H LXHhyseqa-heddsxsh-nyvjofv 2 capsule cap(s) (CREON 24) 2 capsule ORAL TID wMEALSphenol 1 [place] (CHLORASEPTIC) 1 [place] MUCOUS MEMBRANE (TOPICAL MOUTH ANDTHROAT) q 2 [...] 10/03/17 0659 10/03/17 07 - 10/04/17 0659 [id number] - 10/05/17 0659 10/05/17 0700 - 10/06/17 [...] assistance and weekends please page theGroup Pager [phone] [facility] PROGRESSon 10-06-2017 PROGRESS HNO ID: [id number] thor: Michael Cedillo) AugustinService: General SurgeryAuthor Type: PhysicianType: Progress NotesFiled: 10/06/2017 6:29 PMNote Text:SURGICAL SERVICES PROGRESS NOTENAME: Rocio JacksonMRN: [id number]: 10/06/2017Time: 10:09 JUDIE DATE: 09/30/20175 Days Post-OpProcedure(s) [...] on POD 3 nml, removed. Transferred to [facility]?Large volume of emesis past 24 hours [...] ac/hsfor DGE- IPCs, SQH- Continue care on [facility]; will begin disposition planning todaySubjective:AFVSSBilious emesis overnight (2L past 24 hours)No evidence of TF in emesis per nursingBM x4 recordedPHYSICAL EXAM:GENERAL: no acute distressABDOMEN: soft, nontender, mildly distended. Incision c/d/i. [place]anc[place] drainingyellow-red urine.BP 147/86 Pulse 90 Temp 37.1 ?C (98.7 ?F) (Oral) Resp 17 Ht 172.7cm (5' 7.99 ) Wt 88.8 kg (195 lb 12.3 oz) SpO2 96% BMI 29.77 kg/b0Veizhp/Output Summary (Last 24 hours) at 10/06/17 1008Last [...] ?Postsurgical changes.Salvador Birmingham MDResident General Surgery Normal [facility] Phosphoruson 10-06-2017 Phosphate 3.2 mg/dL Normal 2.5-4.5 [facility] Comment on above: Performed By: #### P T, PTT, AMYL, CMP, LIPA, PHOS ####[facility] [place], [place] [phone]#### TRANSF ####[facility] [place], [place] [phone] XR ABDOMEN 1V SPECIFYon 09-27 XR ABDOMEN [...] indeterminate etiology.IMPRESSION:No dilated loops of bowel. Postsurgical changes.Sleep Manager: NII Transcribe Date/Time: Oct 06 2017 6:41ADictated by : MELCHOR OSBORN MDThis examination was interpreted and the report reviewed and electronically signed by: MELCHOR OSBORN MD on Oct 06 2017 6:45AM [id number] Normal [facility] CBC and Differentialon 10-05 Abs Baso <0.03 Normal <0.11 [facility] Comment on above: Performed By: #### P T, PTT, AMYL, CMP, LIPA, PHOS ####[place] [address]#### TRANSF ####[place] [phone] Abs El[place] 0.47 k/uL Normal <0.87 [facility] Comment on above: Performed By: #### P T, PTT, AMYL, CMP, LIPA, PHOS ####[place] [address]#### TRANSF ####[place] [address] Abs Neut 3.08 k/uL Normal 1.45-7.50 [facility] Comment on above: Performed By: #### P T, PTT, AMYL, CMP, LIPA, PHOS ####[place] [address]#### TRANSF ####[place] [address] Basophils/100 WBC Auto (Bld) 0.2 % Normal [facility] Comment on above: Performed By: #### P T, PTT, AMYL, CMP, LIPA, PHOS ####[place] [address]#### TRANSF ####[place] [address] DTYPE Auto Diff Normal [facility] Comment on above: Performed By: #### P T, PTT, AMYL, CMP, LIPA, PHOS ####[place] [address]#### TRANSF ####[place] [address] Eosinophils 0.23 10*3/uL Normal <0.46 [facility] Comment on above: Performed By: #### P T, PTT, AMYL, CMP, LIPA, PHOS ####[place] [address]#### TRANSF ####[place] [address] Eosinophils/100 leukocytes 4.1 % Normal [facility] Comment on above: Performed By: #### P T, PTT, AMYL, CMP, LIPA, PHOS ####[place] [address]#### TRANSF ####[place] [address] Erythrocyte distribution width Auto Ratio (RBC) 16.3 % High 11.5-15.0 [facility] Comment on above: Performed By: #### P T, PTT, AMYL, CMP, LIPA, PHOS ####[place] [address]#### TRANSF ####[place] [address] Erythrocytes (RBC) 4.00 10*6/uL Low 4.20-6.00 [facility] Comment on above: Performed By: #### P T, PTT, AMYL, CMP, LIPA, PHOS ####[place] [address]#### TRANSF ####[place] [address] Hematocrit (HCT) 32.0 % Low 39.0-51.0 [facility] Comment on above: Performed By: #### P T, PTT, AMYL, CMP, LIPA, PHOS ####[place] [address]#### TRANSF ####[place] [phone] Hemoglobin mass conc (Bld) 10.2 g/dL Low 13.0-17.0 [facility] Comment on above: Performed By: #### P T, PTT, AMYL, CMP, LIPA, PHOS ####[place] [address]#### TRANSF ####[place] [phone] Lymphocytes 1.82 10*3/uL Normal 1.00-4.00 [facility] Comment on above: Performed By: #### P T, PTT, AMYL, CMP, LIPA, PHOS ####[address]#### TRANSF ####[place] [address] Lymphocytes/100 leukocytes 32.4 % Normal [facility] Comment on above: Performed By: #### P T, PTT, AMYL, CMP, LIPA, PHOS ####[place] [address]#### TRANSF ####[place] [address] MCH 25.5 pG Low 26.0-34.0 [facility] Comment on above: Performed By: #### P T, PTT, AMYL, CMP, LIPA, PHOS ####[place] [address]#### TRANSF ####[place] [address] MCHC mass conc (RBC) 31.9 g/dL Normal 30.5-36.0 [facility] Comment on above: Performed By: #### P T, PTT, AMYL, CMP, LIPA, PHOS ####[place] [address]#### TRANSF ####[place] [phone] MCV 80.0 fL Normal 80.0-100.0 [facility] Comment on above: Performed By: #### P T, PTT, AMYL, CMP, LIPA, PHOS ####[place] [address]#### TRANSF ####[place] [address] [address] [phone] Monocytes/100 leukocytes 8.4 % Normal [facility] Comment on above: Performed By: #### P T, PTT, AMYL, CMP, LIPA, PHOS ####[place] [address]#### TRANSF ####[place] [address] [address] [phone] Neutrophils/100 WBC Auto (Bld) 54.9 % Normal [facility] Comment on above: Performed By: #### P T, PTT, AMYL, CMP, LIPA, PHOS ####[place] [address]#### TRANSF ####[address] [place] [phone] Platelet mean volume (PMV) 9.3 fL Normal 9.0-12.7 [facility] Comment on above: Performed By: #### P T, PTT, AMYL, CMP, LIPA, PHOS ####[place] [address]#### TRANSF ####[address] AvTony[address]ille [phone] Platelets 314 10*3/uL Normal 150-400 [facility] Comment on above: Performed By: #### P T, PTT, AMYL, CMP, LIPA, PHOS ####[place] [address]#### TRANSF ####[place] [address] [address] [phone] WBC (Leukocytes) 5.61 10*3/uL Normal 3.70-11.[address] [facility] Comment on above: Performed By: #### P T, PTT, AMYL, CMP, LIPA, PHOS ####[facility] [place], [place] [phone]#### TRANSF ####[facility] [address] [place], [place] [phone] CONSULTon 10-05-2017 CONSULT HNO ID: [id number] thor: Damaris Rojsaice: EndocrinologyAuthor Type: PhysicianType: ConsultsFiled: 10/05/2017 6:01 PMNote Text:ENDOCRINOLOGY INITIAL CONSULTPATIENT NAME: Rocio JacksonMRN: [id number] DATE: 10/05/2017SERVICE TIME: 5:01 PMREASON FOR CONSULT: DM Type 2REQUESTING PHYSICIAN:Michael Jolley [facility]: Adriane Nichols, DOSubjectiveHISTORY OF PRESENT [...] sees primary caredoctor for DM management in [facility]. He was on oral agentssaxagliptin 5 mg [...] Date- ANGIOPLASTY HX 05/15/2011 2 stents s/p [place];[facility]- CHOLECYSTECTOMY 08/11/2017 [facility]- PICC LINE INSERT/CONSULT 08/16/2017No family history on [...] PRN Yrn Cedillo)Gonzalo 5 mg at 10/05/17 3893yxvdlp-cbjwetxa-aexdixn 2 capsule cap(s) (CREON 24) 2 capsule ORAL TID EALMilly Pruett (Res) MD Jane 2 capsule at 10/04/17 1740phenol 1 [place] (CHLORASEPTIC) 1 [place] MUCOUS MEMBRANE (TOPICAL MOUTH ANDTHROAT) q 2 H PRN Kolby (Res) Kevin 1 [place] at 10/02/17 56958.9% NaCl 2-10 mL 2-10 mL INTRAVENOUS q [...] lb 12.3 oz) SpO2 96% BMI 29.77 kg/n2Zjuboge: Fatigued appearing, alert, in no acute distress, [...] MDDATE: October 05, 2017TIME: 5:01 PM Normal [facility] Comp Metabolic Panelon 10-05 Alanine aminotransferase (ALT) 27 U/L Normal 5-50 [facility] Comment on above: Performed By: #### P T, PTT, AMYL, CMP, LIPA, PHOS ####[place] [address]#### TRANSF ####[phone] Albumin 3.3 g/dL Low 3.5-5.0 [facility] Comment on above: Result Comment: Revi ewed Performed By: #### P T, PTT, AMYL, CMP, LIPA, PHOS ####[place] [phone]#### TRANSF ####[phone] Alkaline phosphatase (ALP) 107 U/L Normal 40-150 [facility] Comment on above: Performed By: #### P T, PTT, AMYL, CMP, LIPA, PHOS ####[place] [address]#### TRANSF ####[place] [phone] Anion gap 12 mmol/L Normal 9-18 [facility] Comment on above: Performed By: #### P T, PTT, AMYL, CMP, LIPA, PHOS ####[place] [address]#### TRANSF ####[place] [phone] Aspartate aminotransferase (AST) 23 U/L Normal 7-40 [facility] Comment on above: Performed By: #### P T, PTT, AMYL, CMP, LIPA, PHOS ####[place] [address]#### TRANSF ####[place] [phone] Bilirubin (total) 0.2 mg/dL Normal 0.0-1.5 [facility] Comment on above: Performed By: #### P T, PTT, AMYL, CMP, LIPA, PHOS ####[place] [address]#### TRANSF ####[place] [phone] Calcium 8.9 mg/dL Normal 8.5-10.5 [facility] Comment on above: Performed By: #### P T, PTT, AMYL, CMP, LIPA, PHOS ####[place] [address]#### TRANSF ####[place] [address] Chloride 103 mmol/L Normal 98-110 [facility] Comment on above: Performed By: #### P T, PTT, AMYL, CMP, LIPA, PHOS ####[place] [address]#### TRANSF ####[place] [address] [phone] CO2 27 mmol/L Normal 23-32 [facility] Comment on above: Performed By: #### P T, PTT, AMYL, CMP, LIPA, PHOS ####[place] [address]#### TRANSF ####[place] [phone] Creatinine 0.56 mg/dL Low 0.70-1.40 [facility] Comment on above: Performed By: #### P T, PTT, AMYL, CMP, LIPA, PHOS ####[place] [address]#### TRANSF ####[place] [address] eGFR (non-black) mL/min/{1.73_m2} Normal >60 [facility] Comment on above: Performed By: #### P T, PTT, AMYL, CMP, LIPA, PHOS ####[place] [address]#### TRANSF ####[place] [address] Glucose mass conc 172 mg/dL High 65-100 [facility] Comment on above: Performed By: #### P T, PTT, AMYL, CMP, LIPA, PHOS ####[place] [address]#### TRANSF ####[place] [address] Potassium molar conc 4.6 mmol/L Normal 3.5-5.0 [facility] Comment on above: Performed By: #### P T, PTT, AMYL, CMP, LIPA, PHOS ####[place] [address]#### TRANSF ####[place] [address] Protein 6.5 g/dL Normal 6.0-8.4 [facility] Comment on above: Performed By: #### P T, PTT, AMYL, CMP, LIPA, PHOS ####[place] [address]#### TRANSF ####[place] [address] Sodium 142 mmol/L Normal 135-146 [facility] Comment on above: Performed By: #### P T, PTT, AMYL, CMP, LIPA, PHOS ####[place] [address]#### TRANSF ####[place] [address] Urea nitrogen 14 mg/dL Normal 10-25 [facility] Comment on above: Performed By: #### P T, PTT, AMYL, CMP, LIPA, PHOS ####[place] [address]#### TRANSF ####[place] [address] Magnesiumon 10-05-2017 Magnesium 2.1 mg/dL Normal 1.7-2.6 [facility] Comment on above: Performed By: #### P T, PTT, AMYL, CMP, LIPA, PHOS ####[place] [address]#### TRANSF ####[place] [phone] NURSING PROGon 10-05-2017 NURSING PROG HNO ID: [id number] thor: Saima Kramer (Rn) Debra, RNService: (none)Author Type: Registered NurseType: Nursing Progress NoteFiled: 10/05/2017 3:52 PMNote Text: Nursing Progress NotePatient Name: Rocio Boudreaux: [id number] Location: [place] [address]/ZM-[id number]-[id number] ____Daily Note:Pt sitting on edge of bed [...] note was completed by: Saima Richardson RN [facility] PROGRESSon 10-05-2017 PROGRESS HNO ID: [id number] thor: Michael Cedillo) AugustinService: General SurgeryAuthor Type: PhysicianType: Progress NotesFiled: 10/05/2017 6:45 PMNote Text:SURGICAL SERVICES PROGRESS NOTENAME: Rocio Boudreaux: [id number]: 10/05/2017Time: 7:15 JUDIE DATE: 09/30/20175 Days Post-OpProcedure(s) [...] 10/05/17 0659 10/05/17 07 - 10/06/17 0659Shift 1716-8667 9882-0080 9345-8727 24 Hour Total 9184-8598 9767-86321451-4442 24 Hour TotalINTAKE PO 770 5973 437 2917 PO 380 650 0356 Tube Feed Intake (GI Feed/Drain 09/30/17 Small Bore Feeding Right Naris10 Fr) 240 014 751 9847 Irrigants 5 115 180 300 Irrigant/Flush Amount In (Drain/Tube [facility] 5 5 10 Irrigant/Flush Amount In (GI Feed/Drain 09/30/17 Small Bore FeedingRight Naris 10 Fr) 110 180 290 Shift Total 775 1285 718 2778OUTPUT Urine 369 002 1051 3075 Void (ml) 525 1850 2375 Tube Output ([REMOVED] Indwelling Urinary Catheter 09/30/17 0909Foley 16 Fr 10/04/17 1251) 700 700 Emesis 50 300 350 Emesis (ml) 50 300 350 Tubes 0 0 0 Drain/Tube Output (Drain/Tube 08/27/17 Admission to [facility] RightUpper Quadrant Abdomen Drain #3) 0 0 0 # of BMs Number of BMs 3 x 1 x 1 x 5 x Shift Total 105 253 9240 3425Weight (kg) 88.8 88.8 88.8 88.8 88.8 88.8 88.8 88.8DIAGNOSTIC STUDIES:CBC:Hemoglobin (g/dL)Date Value10/05/2017 10.2 Hematocrit (%)Date Value10/05/2017 32.0 WBC (k/uL)Date Value10/05/2017 5.61 Platelet Count (k/uL)Date Value10/05/2017 314 CMP:BMP:Glucose 172 10/05/2017BUN 14 10/05/2017Creatinine 0.56 10/05/2017Sodium 142 10/05/2017Potassium 4.6 10/05/2017Chloride 103 10/05/2017CO2 27 10/05/2017Protein, Total 6.5 10/05/2017Albumin 3.3 10/05/2017Calcium 8.9 10/05/2017Alkaline Phosphatase 107 10/05/2017Bilirubin, Total 0.2 10/05/2017AST 23 10/05/2017ALT 27 10/05/2017Harmony Rodriguez [facility] II general surgeryPager [phone] - [facility] pagerPager [phone] - PersonalSTAFF NOTEI have independently seen and examined the patient today. I haveindependently reviewed all the imaging and the labs. I agree with keycomponents of the resident's note above. Care plan and decision making hasbeen discussed.Doing well, continued DGETolerating tube feedsClearsToms Froilan MD, MPH, FACSGeneral/Trauma/HPB SurgeryPager: [phone] Cell: [id number] 2017 Normal [facility] Phosphoruson 10-05-2017 Phosphate 3.6 mg/dL Normal 2.5-4.5 [facility] Comment on above: Performed By: #### P T, PTT, AMYL, CMP, LIPA, PHOS ####[facility] [place], [place] [phone]#### TRANSF ####[phone] CBC and Differentialon 10-04 Abs Baso <0.03 Normal <0.11 [facility] Comment on above: Performed By: #### P T, PTT, AMYL, CMP, LIPA, PHOS ####[place] [address]#### TRANSF ####[place] [address] Abs [place] 0.32 k/uL Normal <0.87 [facility] Comment on above: Performed By: #### P T, PTT, AMYL, CMP, LIPA, PHOS ####[place] [address]#### TRANSF ####[place] [address] Abs Neut 2.35 k/uL Normal 1.45-7.50 [facility] Comment on above: Performed By: #### P T, PTT, AMYL, CMP, LIPA, PHOS ####[place] [address]#### TRANSF ####[place] [address] Basophils/100 WBC Auto (Bld) 0.2 % Normal [facility] Comment on above: Performed By: #### P T, PTT, AMYL, CMP, LIPA, PHOS ####[place] [address]#### TRANSF ####[place] [address] DTYPE Auto Diff Normal [facility] Comment on above: Performed By: #### P T, PTT, AMYL, CMP, LIPA, PHOS ####[place] [address]#### TRANSF ####[place] [address] Eosinophils 0.25 10*3/uL Normal <0.46 [facility] Comment on above: Performed By: #### P T, PTT, AMYL, CMP, LIPA, PHOS ####[place] [address]#### TRANSF ####[place] [address] Eosinophils/100 leukocytes 6.0 % Normal [facility] Comment on above: Performed By: #### P T, PTT, AMYL, CMP, LIPA, PHOS ####[place] [address]#### TRANSF ####[place] [address] Erythrocyte distribution width Auto Ratio (RBC) 16.3 % High 11.5-15.0 [facility] Comment on above: Performed By: #### P T, PTT, AMYL, CMP, LIPA, PHOS ####[place] [address]#### TRANSF ####[place] [address] Erythrocytes (RBC) 3.42 10*6/uL Low 4.20-6.00 [facility] Comment on above: Performed By: #### P T, PTT, AMYL, CMP, LIPA, PHOS ####[place] [address]#### TRANSF ####[place] [address] Hematocrit (HCT) 27.0 % Low 39.0-51.0 [facility] Comment on above: Performed By: #### P T, PTT, AMYL, CMP, LIPA, PHOS ####[place] [address]#### TRANSF ####[place] [address] Hemoglobin mass conc (Bld) 8.7 g/dL Low 13.0-17.0 [facility] Comment on above: Performed By: #### P T, PTT, AMYL, CMP, LIPA, PHOS ####[place] [address]#### TRANSF ####[place] [address] Lymphocytes 1.27 10*3/uL Normal 1.00-4.00 [facility] Comment on above: Performed By: #### P T, PTT, AMYL, CMP, LIPA, PHOS ####[place] [address]#### TRANSF ####[place] [address] Lymphocytes/100 leukocytes 30.2 % Normal [facility] Comment on above: Performed By: #### P T, PTT, AMYL, CMP, LIPA, PHOS ####[place] [address]#### TRANSF ####[place] [address] MCH 25.4 pG Low 26.0-34.0 [facility] Comment on above: Performed By: #### P T, PTT, AMYL, CMP, LIPA, PHOS ####[place] [address]#### TRANSF ####[place] [address] MCHC mass conc (RBC) 32.2 g/dL Normal 30.5-36.0 [facility] Comment on above: Performed By: #### P T, PTT, AMYL, CMP, LIPA, PHOS ####[place] [address]#### TRANSF ####[place] [phone] MCV 78.9 fL Low 80.0-100.0 [facility] Comment on above: Performed By: #### P T, PTT, AMYL, CMP, LIPA, PHOS ####[place] [address]#### TRANSF ####[address]444[address] Monocytes/100 leukocytes 7.6 % Normal [facility] Comment on above: Performed By: #### P T, PTT, AMYL, CMP, LIPA, PHOS ####[place] [address]#### TRANSF ####[place] [address] Neutrophils/100 WBC Auto (Bld) 56.0 % Normal [facility] Comment on above: Performed By: #### P T, PTT, AMYL, CMP, LIPA, PHOS ####[place] [address]#### TRANSF ####[place] [address] Platelet mean volume (PMV) 9.2 fL Normal 9.0-12.7 [facility] Comment on above: Performed By: #### P T, PTT, AMYL, CMP, LIPA, PHOS ####[place] [address]#### TRANSF ####[place] [phone] Platelets 246 10*3/uL Normal 150-400 [facility] Comment on above: Performed By: #### P T, PTT, AMYL, CMP, LIPA, PHOS ####[facility] [place], [place] [phone]#### TRANSF ####[facility] [place], [place] [phone] WBC (Leukocytes) 4.20 10*3/uL Normal 3.70-11.[address] [facility] Comment on above: Performed By: #### P T, PTT, AMYL, CMP, LIPA, PHOS ####[facility] [place], [place] [phone]#### TRANSF ####[facility] [place], [place] [phone] CONSULT PROGon 10-04-2017 CONSULT PROG HNO ID: [id number] thor: Brock Yao: Pain ManagementAuthor Type: Physician AssistantType: Consult Progress NoteFiled: 10/04/2017 8:53 AMNote Text:PERIPHERAL NERVE CATHETER PROGRESS NOTEPATIENT NAME: Rocio JacksonMRN: [id number] DATE: 10/04/2017SERVICE TIME: 8:36 AMPRIMARY SERVICE:?General Surgery??ASSESSMENT [...] placed: Day of surgery??MEDICATIONS:??Epidu ral Medications and COMMUNICATIONS CONSULTANT SettingsBupivacaine 0.1% + Dilaudid??Basal rate: 4?mL/hr.Patient Demand Bolus: 3?mL.Lockout interval: 4?minutesCurrent hospital medications:oxyCODONE IR 5 mg tab(s) (ROXICODONE) 5 mg ORAL q 4 H FASroohgi-endfasht-wjdmfsk 2 capsule cap(s) (CREON 24) 2 capsule ORAL TID wMEALSacetaminophen 650 mg tab(s) (TYLENOL) 650 mg ORAL q 6 Hdocusate sodium 100 mg cap(s) (COLACE) 100 mg ORAL BIDatorvastatin 40 mg tab(s) (LIPITOR) 40 mg ORAL/FEEDING TUBE AT BEDTIMEphenol 1 [place] (CHLORASEPTIC) 1 [place] MUCOUS MEMBRANE (TOPICAL MOUTH ANDTHROAT) q 2 [...] mg ORAL q 8 HHYDROmorphone 0.5 mg/mL COMMUNICATIONS CONSULTANT CLINICIAN DOSE 0.2 mg 0.2 mg INTRAVENOUS [...] 2017 : 8:36 AM PAGER/CONTACT #: [place] [phone] Normal [facility] Comp Metabolic Panelon 10-04 Alanine aminotransferase (ALT) 23 U/L Normal 5-50 [facility] Comment on above: Performed By: #### P T, PTT, AMYL, CMP, LIPA, PHOS ####[place] [address]#### TRANSF ####[place] [address] Albumin 2.3 g/dL Low 3.5-5.0 [facility] Comment on above: Performed By: #### P T, PTT, AMYL, CMP, LIPA, PHOS ####[place] [address]#### TRANSF ####[place] [address] Alkaline phosphatase (ALP) 83 U/L Normal 40-150 [facility] Comment on above: Performed By: #### P T, PTT, AMYL, CMP, LIPA, PHOS ####[place] [address]#### TRANSF ####[place] [address] Anion gap 11 mmol/L Normal 9-18 [facility] Comment on above: Performed By: #### P T, PTT, AMYL, CMP, LIPA, PHOS ####[place] [address]#### TRANSF ####[place] [phone] Aspartate aminotransferase (AST) 19 U/L Normal 7-40 [facility] Comment on above: Performed By: #### P T, PTT, AMYL, CMP, LIPA, PHOS ####[place] [address]#### TRANSF ####[place] [address] Bilirubin (total) 0.2 mg/dL Normal 0.0-1.5 [facility] Comment on above: Performed By: #### P T, PTT, AMYL, CMP, LIPA, PHOS ####[place] [address]#### TRANSF ####[place] [address] Calcium 8.1 mg/dL Low 8.5-10.5 [facility] Comment on above: Performed By: #### P T, PTT, AMYL, CMP, LIPA, PHOS ####[place] [address]#### TRANSF ####[place] [address] Chloride 103 mmol/L Normal 98-110 [facility] Comment on above: Performed By: #### P T, PTT, AMYL, CMP, LIPA, PHOS ####[place] [address]#### TRANSF ####[place] [address] CO2 25 mmol/L Normal 23-32 [facility] Comment on above: Performed By: #### P T, PTT, AMYL, CMP, LIPA, PHOS ####[place] [address]#### TRANSF ####[place] [phone] Creatinine 0.54 mg/dL Low 0.70-1.40 [facility] Comment on above: Performed By: #### P T, PTT, AMYL, CMP, LIPA, PHOS ####[place] [address]#### TRANSF ####[place] [phone] eGFR (non-black) mL/min/{1.73_m2} Normal >60 [facility] Comment on above: Performed By: #### P T, PTT, AMYL, CMP, LIPA, PHOS ####[place] [address]446[address]#### TRANSF ####[place] [address] Glucose mass conc 146 mg/dL High 65-100 [facility] Comment on above: Performed By: #### P T, PTT, AMYL, CMP, LIPA, PHOS ####[place] [phone]#### TRANSF ####[phone] Potassium molar conc 4.0 mmol/L Normal 3.5-5.0 [facility] Comment on above: Performed By: #### P T, PTT, AMYL, CMP, LIPA, PHOS ####[place] [phone]#### TRANSF ####[place] [phone] Protein 5.6 g/dL Low 6.0-8.4 [facility] Comment on above: Performed By: #### P T, PTT, AMYL, CMP, LIPA, PHOS ####[place] [phone]#### TRANSF ####[place] [address] [place] [address] Sodium 139 mmol/L Normal 135-146 [facility] Comment on above: Performed By: #### P T, PTT, AMYL, CMP, LIPA, PHOS ####[place] [address]#### TRANSF ####[place] [address] Urea nitrogen 16 mg/dL Normal 10-25 [facility] Comment on above: Performed By: #### P T, PTT, AMYL, CMP, LIPA, PHOS ####[place] [address]#### TRANSF ####[place] [address] Magnesiumon 10-04-2017 Magnesium 1.8 mg/dL Normal 1.7-2.6 [facility] Comment on above: Performed By: #### P T, PTT, AMYL, CMP, LIPA, PHOS ####[place] [address]#### TRANSF ####[place] [phone] NURSING PROGon 10-04-2017 NURSING PROG HNO ID: [id number] thor: Homa (Rn) Bonine, RNService: (none)Author Type: Registered NurseType: Nursing Progress NoteFiled: 10/05/2017 5:27 AMNote Text: Nursing Progress NotePatient Name: Rocio TorresDary: [id number] Location: [facility]3B17/[id number]-SB4O-07 ____Daily Note:2049: Pt had one 50cc emesis. Medicated with Oeidbn5455: Pt reassessed. States nausea has subsided. Will continue to monitor.454: Pt had 300cc green emesis episode. Medicated with zofran. Text pagesent to SROC to make aware.0525: SROC returned called. day team will be rounding soon. Willcontinue to monitor.This note was completed by: Homa Nicole RN [facility] PROGRESSon 10-04-2017 PROGRESS HNO ID: [id number] thor: Mela Sheridane: General SurgeryAuthor Type: PhysicianType: [...] lb 12.3 oz) SpO2 94% BMI 29.77 kg/p1ILYPAUP: no acute distressABDOMEN: soft, nontender, mildly distended. [...] 0.5LACT -- -- -- -- 2.3*CoagsRecent Labs 09/24/1808115488AXHL 25.9 24.9 -- -- 39.8* 31.6INR 1.2 1.1 1.0 2.0* 2.0* 1.5*Current Medications:Current hospital medications:morphine 1-2 mg injection 1-2 mg INTRAVENOUS q 6 H PRNoxyCODONE 5 mg oral liquid (ROXICODONE) 5 mg ORAL q 4 H RVGqvknlf-myoquivq-odglpyz 2 capsule cap(s) (CREON 24) 2 capsule ORAL TID wMEALSacetaminophen 650 mg tab(s) (TYLENOL) 650 mg ORAL q 6 Hdocusate sodium 100 mg cap(s) (COLACE) 100 mg ORAL BIDatorvastatin 40 mg tab(s) (LIPITOR) 40 mg ORAL/FEEDING TUBE AT BEDTIMEphenol 1 [place] (CHLORASEPTIC) 1 [place] MUCOUS MEMBRANE (TOPICAL MOUTH ANDTHROAT) q 2 [...] epidural removalMuriel Perez 2017 1:07 PM Normal [facility] Phosphoruson 10-04-2017 Phosphate 3.5 mg/dL Normal 2.5-4.5 [facility] Comment on above: Performed By: #### P T, PTT, AMYL, CMP, LIPA, PHOS ####[facility] [place], [place] [phone]#### TRANSF ####[facility], [place] [phone] Amylaseon 10-03-2017 Amylase 44 U/L Normal 0-137 [facility] Comment on above: Performed By: #### P T, PTT, AMYL, CMP, LIPA, PHOS ####[facility] [place], [place] [phone]#### TRANSF ####[place] [address] [place], [place] [phone] Amylase,Body Fluidon 018 Amylase 118 U/L Critically abnormal See Comment [facility] Comment on above: Result [...] CLSI document C49-A. SAIMA Contreras: Clinical LaboratoryStandards [place]; 2007.3. [facility], Angelia SANCHEZ, Nimo DJ. Use of cyst fluid CEA,CA19-9, and amylase for evaluation of pancreatic lesions. ClinicalBiochemistry. 2009;42:2562-1694.This test was developed and its performance characteristicsdetermined by [facility] and[facility] [place] ([facility]).It has not been cleared or approved by the FDA. [facility] is regulatedunder CLIA as qualified to perform high-complexity testing.This test is used for clinical purposes. It should not be regarded asinvestigational or for research. Performed By: #### P T, PTT, AMYL, CMP, LIPA, PHOS ####[place] [address]#### TRANSF ####[place] [phone] Fluid Type Chandana Howard Drain Normal [facility] Comment on above: Result Comment: LEFT Performed By: #### P T, PTT, AMYL, CMP, LIPA, PHOS ####[place] [address]#### TRANSF ####[place] [address] Amylase 53 U/L Critically abnormal See Comment [facility] Comment on above: Result [...] CLSI document C49-A. SAIMA Contreras: Clinical LaboratoryStandards [place]; 2006.3. Kya CL[facility], Angelia RC, Nimo DJ. Use of cyst fluid CEA,CA19-9, and amylase for evaluation of pancreatic lesions. ClinicalBiochemistry. 2009;42:3116-2723.This test was developed and its performance characteristicsdetermined by [facility] Pathology and[facility] [place] ([facility]).It has not been cleared or approved by the FDA. [facility] is regulatedunder CLIA as qualified to perform high-complexity testing.This test is used for clinical purposes. It should not be regarded asinvestigational or for research. Performed By: #### P T, PTT, AMYL, CMP, LIPA, PHOS ####[place] [address]#### TRANSF ####[place] [address] Fluid Type Chandana Howard Drain Normal [facility] Comment on above: Result Comment: GLORIA T Performed By: #### P T, PTT, AMYL, CMP, LIPA, PHOS ####[place] [address]#### TRANSF ####[place] [phone] CBC and Differentialon 10-03 Abs Baso <0.03 Normal <0.11 [facility] Comment on above: Performed By: #### P T, PTT, AMYL, CMP, LIPA, PHOS ####[place] [address]#### TRANSF ####[place] [address] Abs Elmore 0.54 k/uL Normal <0.87 [facility] Comment on above: Performed By: #### P T, PTT, AMYL, CMP, LIPA, PHOS ####[place] [address]#### TRANSF ####[place] [address] [place] [phone] Abs Neut 3.56 k/uL Normal 1.45-7.50 [facility] Comment on above: Performed By: #### P T, PTT, AMYL, CMP, LIPA, PHOS ####[place] [address]#### TRANSF ####[place] [address] [place] [phone] Basophils/100 WBC Auto (Bld) 0.2 % Normal [facility] Comment on above: Performed By: #### P T, PTT, AMYL, CMP, LIPA, PHOS ####[place] [address]#### TRANSF ####[place] [address] DTYPE Auto Diff Normal [facility] Comment on above: Performed By: #### P T, PTT, AMYL, CMP, LIPA, PHOS ####[place] [address]#### TRANSF ####[place] [address] [place] [phone] Eosinophils 0.29 10*3/uL Normal <0.46 [facility] Comment on above: Performed By: #### P T, PTT, AMYL, CMP, LIPA, PHOS ####[place] [address]#### TRANSF ####[place] [address] [place] [phone] Eosinophils/100 leukocytes 4.9 % Normal [facility] Comment on above: Performed By: #### P T, PTT, AMYL, CMP, LIPA, PHOS ####[place] [address]#### TRANSF ####[place] [address] Erythrocyte distribution width Auto Ratio (RBC) 16.1 % High 11.5-15.0 [facility] Comment on above: Performed By: #### P T, PTT, AMYL, CMP, LIPA, PHOS ####[place] [address]#### TRANSF ####[place] [address] Erythrocytes (RBC) 3.72 10*6/uL Low 4.20-6.00 [facility] Comment on above: Performed By: #### P T, PTT, AMYL, CMP, LIPA, PHOS ####[place] [address]#### TRANSF ####[place] [address] Hematocrit (HCT) 29.4 % Low 39.0-51.0 [facility] Comment on above: Performed By: #### P T, PTT, AMYL, CMP, LIPA, PHOS ####[place] [address]#### TRANSF ####[place] [address] Hemoglobin mass conc (Bld) 9.5 g/dL Low 13.0-17.0 [facility] Comment on above: Performed By: #### P T, PTT, AMYL, CMP, LIPA, PHOS ####[place] [address]#### TRANSF ####[place] [address] Lymphocytes 1.52 10*3/uL Normal 1.00-4.00 [facility] Comment on above: Performed By: #### P T, PTT, AMYL, CMP, LIPA, PHOS ####[place] [address]#### TRANSF ####[place] [address] Lymphocytes/100 leukocytes 25.7 % Normal [facility] Comment on above: Performed By: #### P T, PTT, AMYL, CMP, LIPA, PHOS ####[place] [address]#### TRANSF ####[place] [address] MCH 25.5 pG Low 26.0-34.0 [facility] Comment on above: Performed By: #### P T, PTT, AMYL, CMP, LIPA, PHOS ####[place] [address]#### TRANSF ####[place] [address] MCHC mass conc (RBC) 32.3 g/dL Normal 30.5-36.0 [facility] Comment on above: Performed By: #### P T, PTT, AMYL, CMP, LIPA, PHOS ####[place] [address]#### TRANSF ####[place] [phone] MCV 79.0 fL Low 80.0-100.0 [facility] Comment on above: Performed By: #### P T, PTT, AMYL, CMP, LIPA, PHOS ####[address]#### TRANSF ####[place] [address] [address] Ave[address] [place] [phone] Monocytes/100 leukocytes 9.1 % Normal [facility] Comment on above: Performed By: #### P T, PTT, AMYL, CMP, LIPA, PHOS ####[place] [address]#### TRANSF ####[address] [place] [phone] Neutrophils/100 WBC Auto (Bld) 60.1 % Normal [facility] Comment on above: Performed By: #### P T, PTT, AMYL, CMP, LIPA, PHOS ####[address]#### TRANSF ####[place] [phone] Platelet mean volume (PMV) 10.0 fL Normal 9.0-12.7 [facility] Comment on above: Performed By: #### P T, PTT, AMYL, CMP, LIPA, PHOS ####[address]#### TRANSF ####[place] [phone] Platelets 225 10*3/uL Normal 150-400 [facility] Comment on above: Performed By: #### P T, PTT, AMYL, CMP, LIPA, PHOS ####[place] [address]#### TRANSF ####[address] [place]ille [phone] WBC (Leukocytes) 5.92 10*3/uL Normal 3.70-11.[address] [facility] Comment on above: Performed By: #### P T, PTT, AMYL, CMP, LIPA, PHOS ####[place] [address]#### TRANSF ####[facility] [address] [place], [place] [phone] CONSULT PROGon 10-03-2017 CONSULT PROG HNO ID: [id number] thor: Brock DixonService: Pain ManagementAuthor Type: Physician AssistantType: Consult Progress NoteFiled: 10/03/2017 9:15 AMNote Text:PERIPHERAL NERVE CATHETER PROGRESS NOTEPATIENT NAME: Rocio JacksonMRN: [id number] DATE: 10/03/2017SERVICE TIME: 8:59 AMPRIMARY SERVICE: General [...] catheter placed: Day of surgery?MEDICATIONS:Epidural Medications and COMMUNICATIONS CONSULTANT SettingsBupivacaine 0.1% + Dilaudid?Basal rate: 4 mL/hr.Patient Demand Bolus: 3 mL.Lockout interval: 4 minutes.??Current hospital medications:oxyCODONE IR 5 mg tab(s) (ROXICODONE) 5 mg ORAL q 4 H PRNdocusate sodium 100 mg cap(s) (COLACE) 100 mg ORAL BIDacetaminophen 650 mg CUP (TYLENOL) 650 mg ORAL/FEEDING TUBE q 6 Hatorvastatin 40 mg tab(s) (LIPITOR) 40 mg ORAL/FEEDING TUBE AT BEDTIMEphenol 1 [place] (CHLORASEPTIC) 1 [place] MUCOUS MEMBRANE (TOPICAL MOUTH ANDTHROAT) q 2 [...] mg ORAL q 8 HHYDROmorphone 0.5 mg/mL COMMUNICATIONS CONSULTANT CLINICIAN DOSE 0.2 mg 0.2 mg INTRAVENOUS q 6 HPRNinsulin lispro injection (rapid acting) (HumaLOG) SUBCUTANEOUS q 6 Hheparin 5,000 Units injection 5,000 Units SUBCUTANEOUS q 12 Hmetoclopramide HCl 10 mg injection (REGLAN) 10 mg INTRAVENOUS q 6 H PRNOBJECTIVE:PHYSICAL EXAM:Patient Vitals for the past 3 hrs: BP Temp Temp src Pulse Resp BfL36110/03/17 0736 134/78 37.3 ?C (99.2 ?F) Oral [...] 03, 2017 : 8:59 AM PAGER/CONTACT #: [phone] Normal [facility] Comp Metabolic Panelon 10-03 Alanine aminotransferase (ALT) 25 U/L Normal 5-50 [facility] Comment on above: Performed By: #### P T, PTT, AMYL, CMP, LIPA, PHOS ####[facility] [place], [place] [phone]#### TRANSF ####[facility] [place], [place] [phone] Albumin 2.5 g/dL Low 3.5-5.0 [facility] Comment on above: Performed By: #### P T, PTT, AMYL, CMP, LIPA, PHOS ####[place] [address]#### TRANSF ####[place] [address] Alkaline phosphatase (ALP) 72 U/L Normal 40-150 [facility] Comment on above: Performed By: #### P T, PTT, AMYL, CMP, LIPA, PHOS ####[place] [address]#### TRANSF ####[place] [address] Anion gap 11 mmol/L Normal 9-18 [facility] Comment on above: Performed By: #### P T, PTT, AMYL, CMP, LIPA, PHOS ####[place] [address]#### TRANSF ####[place] [address] Aspartate aminotransferase (AST) 20 U/L Normal 7-40 [facility] Comment on above: Performed By: #### P T, PTT, AMYL, CMP, LIPA, PHOS ####[place] [address]#### TRANSF ####[place] [address] Bilirubin (total) 0.2 mg/dL Normal 0.0-1.5 [facility] Comment on above: Performed By: #### P T, PTT, AMYL, CMP, LIPA, PHOS ####[place] [address]#### TRANSF ####[place] [address] Calcium 8.3 mg/dL Low 8.5-10.5 [facility] Comment on above: Performed By: #### P T, PTT, AMYL, CMP, LIPA, PHOS ####[place] [address]#### TRANSF ####[place] [address] Chloride 105 mmol/L Normal 98-110 [facility] Comment on above: Performed By: #### P T, PTT, AMYL, CMP, LIPA, PHOS ####[place] [address]#### TRANSF ####[place] [address] CO2 24 mmol/L Normal 23-32 [facility] Comment on above: Performed By: #### P T, PTT, AMYL, CMP, LIPA, PHOS ####[place] [address]#### TRANSF ####[place] [address] Creatinine 0.55 mg/dL Low 0.70-1.40 [facility] Comment on above: Performed By: #### P T, PTT, AMYL, CMP, LIPA, PHOS ####[place] [address]#### TRANSF ####[place] [address] eGFR (non-black) mL/min/{1.73_m2} Normal >60 [facility] Comment on above: Performed By: #### P T, PTT, AMYL, CMP, LIPA, PHOS ####[place] [address]#### TRANSF ####[place] [address] Glucose mass conc 138 mg/dL High 65-100 [facility] Comment on above: Performed By: #### P T, PTT, AMYL, CMP, LIPA, PHOS ####[place] [address]#### TRANSF ####[place] [address] Potassium molar conc 4.1 mmol/L Normal 3.5-5.0 [facility] Comment on above: Performed By: #### P T, PTT, AMYL, CMP, LIPA, PHOS ####[place] [address]#### TRANSF ####[place] [address] Protein 5.7 g/dL Low 6.0-8.4 [facility] Comment on above: Performed By: #### P T, PTT, AMYL, CMP, LIPA, PHOS ####[place] [address]#### TRANSF ####[place] [address] Sodium 140 mmol/L Normal 135-146 [facility] Comment on above: Performed By: #### P T, PTT, AMYL, CMP, LIPA, PHOS ####[place] [address]#### TRANSF ####[place] [address] Urea nitrogen 18 mg/dL Normal 10-25 [facility] Comment on above: Performed By: #### P T, PTT, AMYL, CMP, LIPA, PHOS ####[place] [address]#### TRANSF ####[place] [address] Magnesiumon 10-03-2017 Magnesium 1.8 mg/dL Normal 1.7-2.6 [facility] Comment on above: Performed By: #### P T, PTT, AMYL, CMP, LIPA, PHOS ####[facility] [place], [place] [phone]#### TRANSF ####[facility] [address] [place], [place] [phone] NURSING PROGon 10-03-2017 NURSING PROG HNO ID: [id number] thor: Homa KenRn) Bhupinder Nicole: (none)Author Type: Registered NurseType: Nursing Progress NoteFiled: 10/04/2017 1:34 AMNote Text: Nursing Progress NotePatient Name: Rociomarisa Boudreaux: [id number] Location: [address]/[id number] ____Daily Note: Pt AANDOx3. Adequate saturation on RA. ABD distended, tender totouch. Midline ADELA. Pt states he has passed a little gas. [place]anc[place] drainingclear, yellow. Epidural infusing per order. Tube feed at 50cc/hr.Ambulated pod with x1 assist and walker. No needs voiced. Call lightwithin reach, will continue to monitor.This note was completed by: Homa Nicole RN [facility] NURSING PROG HNO ID: [id number] thor: Serena Arreola) Clayton Stewartice: NursingAuthor Type: Registered NurseType: Nursing Progress NoteFiled: 10/03/2017 6:32 PMNote Text: Nursing Progress NotePatient Name: Rociomarisa Boudreaux: [id number] Location: [address]/OD-GP5T-81 ____Daily Note: Late entry for 1100: Pt ambulated alf around POD usingwalker ( standby assistance). Pt tolerated well. Currently sitting inrecliner chair. Family at bedside.1300: Diet advanced to full liquids. Tolerating well. Creon given withlunch. Handout given and teaching provided about new medication.1500: Right biliary drain flushed with 5cc NS per order. New drainsponges applied to right and left ROMINA drains.1530: Pt ambulated alf around POD for 2nd time this lkgkh9855: Resident into remove pt's ROMINA drains. PtThis note was completed by: Serena Stewart RN [facility] NURSING PROG HNO ID: [id number] thor: Jennifer Humphries (Rn) Eleanor, RNService: (none)Author Type: Registered NurseType: Nursing Progress NoteFiled: 10/02/2017 11:39 PMNote Text: Nursing Progress NotePatient Name: Rocio JacksonMRN: [id number] Location: [place] [address]/FU-FO1O-93 ____ Pt up in chair at start of shift. Pts and sister staying in room wpt. Rates pain 1 , states epidural adequate for pain control. Bili drainflushed earlier per orders, flushes well. Pt denies nausea with clears.BS hypo. Denies passing flatus.This note was completed by: Jennifer Webster, KEVIN [facility] PROGRESSon 10-03-2017 PROGRESS HNO ID: [id number] thor: Mela Carroll: General SurgeryAuthor Type: PhysicianType: Progress NotesFiled: 10/03/2017 1:26 PMNote Text:Covering MDNo new c/oPain well controlledCont epidural for nowWill remove drains if no evid for leakPt appreciative of Molly Verdin MD [facility] PROGRESS HNO ID: [id number] thor: Fylnn (Res) ASHLEY Laraervice: General SurgeryAuthor Type: ResidentType: [...] lb 12.3 oz) SpO2 97% BMI 29.77 kg/w6DRYQUEA: no acute distressABDOMEN: soft, diffusely tender, nondistended. [...] 0.5LACT -- -- -- 2.3*CoagsRecent Labs 09/24/18083 08/15/1820141721LZNF 25.9 24.9 -- -- 39.8* 31.6INR 1.2 1.1 1.0 2.0* 2.0* 1.5*Intake and Output:Date 10/01/17 07 - 10/02/17 0659 10/02/17699 - 10/03/17 0659Shift 5206-7971 5418-7495 1422-0604 24 Hour Total 5527-2363 0723-00690347-6612 24 Hour TotalINTAKE PO 0 97 482 [...] 2886 601.6 3637.6 60 60OUTPUT Urine 310 057 557 8337 75 75 Tube Output ( Indwelling Urinary Catheter 09/30/17 0909 [place] 16Fr) 310 552 684 5719 75 75 Tubes 70 135 35 240 [...] BM (mL) 0 0 Shift Total 380 164 204 3708 75 75Weight (kg) 81.1 81.1 88.8 88.8 88.8 88.8 88.8 88.8Current Medications:Current hospital medications:oxyCODONE IR 5 mg tab(s) (ROXICODONE) 5 mg ORAL q 4 H CUWvwneyd-odhpoqoq-kabipzc 2 capsule cap(s) (CREON 24) 2 capsule ORAL TID wMEALSacetaminophen 650 mg tab(s) (TYLENOL) 650 mg ORAL q 6 Hdocusate sodium 100 mg cap(s) (COLACE) 100 mg ORAL BIDatorvastatin 40 mg tab(s) (LIPITOR) 40 mg ORAL/FEEDING TUBE AT BEDTIMEphenol 1 [place] (CHLORASEPTIC) 1 [place] MUCOUS MEMBRANE (TOPICAL MOUTH ANDTHROAT) q 2 [...] mg ORAL q 8 HHYDROmorphone 0.5 mg/mL COMMUNICATIONS CONSULTANT CLINICIAN DOSE 0.2 mg 0.2 mg INTRAVENOUS q 6 HPRNinsulin lispro injection (rapid acting) (HumaLOG) SUBCUTANEOUS q 6 Hheparin 5,000 Units injection 5,000 Units SUBCUTANEOUS q 12 Hmetoclopramide HCl 10 mg injection (REGLAN) 10 mg INTRAVENOUS q 6 H PRN Normal [facility] Phosphoruson 10-03-2017 Phosphate 3.1 mg/dL Normal 2.5-4.5 [facility] Comment on above: Performed By: #### P T, PTT, AMYL, CMP, LIPA, PHOS ####[address] [phone]#### TRANSF ####[place] [address] [place] [phone] Amylaseon 10-02-2017 Amylase 45 U/L Normal 0-137 [facility] Comment on above: Performed By: #### P T, PTT, AMYL, CMP, LIPA, PHOS ####[address] [phone]#### TRANSF ####[place] [address] [address] [place], [place] [phone] CASE MANAGEMon 10-02-2017 CASE MANAGEM HNO ID: [id number] thor: Lee Ann (Rn) Sveta, RNService: Care ManagementAuthor Type: Registered NurseType: Care Mgt Progress NoteFiled: 10/02/2017 11:48 AMNote Text:CARE MANAGEMENT PROGRESS NOTESERVICE DATE: 10/02/2017SERVICE TIME: 11:44 AM LOS: 2 daysFREEDOM OF CHOICE GIVEN:Yes patientProvider List: Retirement FacilityNeeds Prior to Discharge: Accepting FacilityTCC met with patient and sister Briana at bedside. Discussed PTrecommendations for acute rehab--[facility] closest acute rehab that acceptshis insurance, patient states wants to be closer to home-[facility] and states would prefer a SNF closer to home. Givenprovider list, patient and sister want to look over the list beforedeciding. CM will continue to assist with transition of care needs.SIGNATURE: Lee Ann Bangura RN PATIENT NAME: Rocio VizcarraTE: October 02, 2017 : 11:44 AM PAGER/CONTACT #: [phone] Normal [facility] CBCon 10-02-2017 Erythrocyte distribution width Auto Ratio (RBC) 16.2 % High 11.5-15.0 [facility] Comment on above: Performed By: #### P T, PTT, AMYL, CMP, LIPA, PHOS ####[place] [phone]#### TRANSF ####[phone] Erythrocytes (RBC) 3.38 10*6/uL Low 4.20-6.00 [facility] Comment on above: Performed By: #### P T, PTT, AMYL, CMP, LIPA, PHOS ####[place] [phone]#### TRANSF ####[place] [phone] Hematocrit (HCT) 26.4 % Low 39.0-51.0 [facility] [facility] Comment on above: Performed By: #### P T, PTT, AMYL, CMP, LIPA, PHOS ####[place] [address]#### TRANSF ####[place] [phone] Hemoglobin mass conc (Bld) 8.6 g/dL Low 13.0-17.0 [facility] Comment on above: Performed By: #### P T, PTT, AMYL, CMP, LIPA, PHOS ####[place] [address]#### TRANSF ####[place] [phone] MCH 25.4 pG Low 26.0-34.0 [facility] Comment on above: Performed By: #### P T, PTT, AMYL, CMP, LIPA, PHOS ####[place] [address]#### TRANSF ####[place] [phone] MCHC mass conc (RBC) 32.6 g/dL Normal 30.5-36.0 [facility] Comment on above: Performed By: #### P T, PTT, AMYL, CMP, LIPA, PHOS ####[place] [address]#### TRANSF ####[place] [phone] MCV 78.1 fL Low 80.0-100.0 [facility] Comment on above: Performed By: #### P T, PTT, AMYL, CMP, LIPA, PHOS ####[place] [address]#### TRANSF ####[place] [phone] Platelet mean volume (PMV) 9.4 fL Normal 9.0-12.7 [facility] Comment on above: Performed By: #### P T, PTT, AMYL, CMP, LIPA, PHOS ####[place] [address]#### TRANSF ####[place] [phone] Platelets 210 10*3/uL Normal 150-400 [facility] Comment on above: Performed By: #### P T, PTT, AMYL, CMP, LIPA, PHOS ####[place] [address]#### TRANSF ####[place] [phone] WBC (Leukocytes) 6.15 10*3/uL Normal 3.70-11.[address] [facility] Comment on above: Performed By: #### P T, PTT, AMYL, CMP, LIPA, PHOS ####[place] [address]#### TRANSF ####[place] [phone] CBC and Differentialon 10-02 Abs Baso <0.03 Normal <0.11 [facility] Comment on above: Performed By: #### P T, PTT, AMYL, CMP, LIPA, PHOS ####[place] [address]#### TRANSF ####[place] [phone] Abs Elmore 0.49 k/uL Normal <0.87 [facility] Comment on above: Performed By: #### P T, PTT, AMYL, CMP, LIPA, PHOS ####[address]#### TRANSF ####[address], [place] [phone] Abs Neut 4.18 k/uL Normal 1.45-7.50 [facility] Comment on above: Performed By: #### P T, PTT, AMYL, CMP, LIPA, PHOS ####[place] [address]#### TRANSF ####[place] [phone] Basophils/100 WBC Auto (Bld) 0.2 % Normal [facility] Comment on above: Performed By: #### P T, PTT, AMYL, CMP, LIPA, PHOS ####[place] [address]#### TRANSF ####[place] [phone] DTYPE Auto Diff Normal [facility] Comment on above: Performed By: #### P T, PTT, AMYL, CMP, LIPA, PHOS ####[place] [address]#### TRANSF ####[place] [phone] Eosinophils 0.23 10*3/uL Normal <0.46 [facility] Comment on above: Performed By: #### P T, PTT, AMYL, CMP, LIPA, PHOS ####[place] [address]#### TRANSF ####[place] [address] Eosinophils/100 leukocytes 3.6 % Normal [facility] Comment on above: Performed By: #### P T, PTT, AMYL, CMP, LIPA, PHOS ####[place] [address]#### TRANSF ####[place] [phone] Erythrocyte distribution width Auto Ratio (RBC) 16.6 % High 11.5-15.0 [facility] Comment on above: Performed By: #### P T, PTT, AMYL, CMP, LIPA, PHOS ####[place] [address]#### TRANSF ####[place] [address] Erythrocytes (RBC) 3.13 10*6/uL Low 4.20-6.00 [facility] Comment on above: Performed By: #### P T, PTT, AMYL, CMP, LIPA, PHOS ####[place] [address]#### TRANSF ####[place] [phone] Hematocrit (HCT) 24.3 % Low 39.0-51.0 [facility] Comment on above: Performed By: #### P T, PTT, AMYL, CMP, LIPA, PHOS ####[place] [address]#### TRANSF ####[place] [phone] Hemoglobin mass conc (Bld) 7.8 g/dL Low 13.0-17.0 [facility] Comment on above: Performed By: #### P T, PTT, AMYL, CMP, LIPA, PHOS ####[place] [address]#### TRANSF ####[place] [address] Lymphocytes 1.56 10*3/uL Normal 1.00-4.00 [facility] Comment on above: Performed By: #### P T, PTT, AMYL, CMP, LIPA, PHOS ####[place] [id number]#### TRANSF ####[place] [address] Lymphocytes/100 leukocytes 24.1 % Normal [facility] Comment on above: Performed By: #### P T, PTT, AMYL, CMP, LIPA, PHOS ####[place] [address]#### TRANSF ####[place] [phone] MCH 24.9 pG Low 26.0-34.0 [facility] Comment on above: Performed By: #### P T, PTT, AMYL, CMP, LIPA, PHOS ####[place] [address]#### TRANSF ####[place] [phone] MCHC mass conc (RBC) 32.1 g/dL Normal 30.5-36.0 [facility] Comment on above: Performed By: #### P T, PTT, AMYL, CMP, LIPA, PHOS ####[place] [address]#### TRANSF ####[place] [phone] MCV 77.6 fL Low 80.0-100.0 [facility] Comment on above: Performed By: #### P T, PTT, AMYL, CMP, LIPA, PHOS ####[place] [address]#### TRANSF ####[place] [address] Monocytes/100 leukocytes 7.6 % Normal [facility] Comment on above: Performed By: #### P T, PTT, AMYL, CMP, LIPA, PHOS ####[place] [id number]#### TRANSF ####[place] [phone] Neutrophils/100 WBC Auto (Bld) 64.5 % Normal [facility] Comment on above: Performed By: #### P T, PTT, AMYL, CMP, LIPA, PHOS ####[place] [address]#### TRANSF ####[place] [phone] Platelet mean volume (PMV) 9.1 fL Normal 9.0-12.7 [facility] Comment on above: Performed By: #### P T, PTT, AMYL, CMP, LIPA, PHOS ####[place] [address]#### TRANSF ####[place] [phone] Platelets 207 10*3/uL Normal 150-400 [facility] Comment on above: Performed By: #### P T, PTT, AMYL, CMP, LIPA, PHOS ####[place] [address]#### TRANSF ####[place] [phone] WBC (Leukocytes) 6.47 10*3/uL Normal 3.70-11.[address] [facility] Comment on above: Performed By: #### P T, PTT, AMYL, CMP, LIPA, PHOS ####[address]#### TRANSF ####[place] [phone] CONSULT PROGon 10-02-2017 CONSULT PROG HNO ID: [id number] thor: Matilda Malloy: AnesthesiologyAuthor Type: AnesthesiologistType: Consult Progress NoteFiled: 10/02/2017 9:33 AMNote Text:APS EPIDURAL CATHETER PROGRESS NOTESERVICE DATE: 10/02/2017SERVICE TIME: 9:27 AMPRIMARY SERVICE: HBSSubjectiveINTERVAL HPI:Rocio Jackson is a 62 year old male who is POD #2 S/P WhipplePatient also has an IV COMMUNICATIONS CONSULTANT: NoIV Line Appears Intact YesPain at Surgical [...] Placed: Day of surgeryMEDICATIONS:I have interrogated the COMMUNICATIONS CONSULTANT pump(s) for the correct settings and solution:Yes.EPIDURAL MEDICATIONS AND COMMUNICATIONS CONSULTANT SETTINGS: Other: bupivicaine + hydromorphoneBasal Rate: 4 mL/hr.Patient Demand Bolus: 3 mL.Lockout Interval: 15 Minutes.Additional Medication(s) GIven: See BelowAnticoagulation Therapy: noneCurrent hospital medications:magnesium sulfate in water 2 g in sterile water 50 ml 2 g INTRAVENOUS ONCEsodium phosphate 15 mmol in D5W 250 mL 15 mmol INTRAVENOUS ONCEdocusate sodium 100 mg cap(s) (COLACE) 100 mg ORAL BIDphenol 1 [place] (CHLORASEPTIC) 1 [place] MUCOUS MEMBRANE (TOPICAL MOUTH ANDTHROAT) q 2 [...] (MOTRIN) 800 mg ORAL q 8 HHYDROmorphone COMMUNICATIONS CONSULTANT 0.5 mg/mL in NaCl 0.9% 100 mL INTRAVENOUS CONTINUOUSHYDROmorphone 0.5 mg/mL COMMUNICATIONS CONSULTANT CLINICIAN DOSE 0.2-0.4 mg 0.2-0.4 mgINTRAVENOUS (PACU) PRNHYDROmorphone 0.5 mg/mL COMMUNICATIONS CONSULTANT CLINICIAN DOSE 0.2 mg 0.2 mg INTRAVENOUS q 6 HPRNinsulin lispro injection (rapid acting) (HumaLOG) SUBCUTANEOUS q 6 Hheparin 5,000 Units injection 5,000 Units SUBCUTANEOUS q 12 Hmetoclopramide HCl 10 mg injection (REGLAN) 10 mg INTRAVENOUS q 6 H PRNPHYSICAL EXAM:Patient Vitals for the past 4 hrs: BP Temp Temp src Pulse Resp SpO2 Hxxsun52/06/18 0800 134/79 36.7 ?C (98 ?F) Oral [...] HPI above. Pain wellcontrolled with current epidural COMMUNICATIONS CONSULTANT.Assessment: Pain adequately controlled.Patient satisfied with analgesic regimen..Plan of Care: Continue epidural analgesia to promote comfort, mobility,and pulmonary toilet.Plan to start roxicodone tomorrow once the patient continue to tolerateenteral nutrition and hold epidural catheter.SIGNATURE: Matilda Raya MD PATIENT NAME: Rocio JacksonDATE: October 02, 2017 : 9:27 AM PAGER/CONTACT #: Normal [facility] Comp Metabolic Panelon 10-02 Alanine aminotransferase (ALT) 27 U/L Normal 5-50 [facility] Comment on above: Performed By: #### P T, PTT, AMYL, CMP, LIPA, PHOS ####[facility] [place], [place] [phone]#### TRANSF ####[facility] [place], [place] [phone] Albumin 2.5 g/dL Low 3.5-5.0 [facility] Comment on above: Performed By: #### P T, PTT, AMYL, CMP, LIPA, PHOS ####[place] [address]#### TRANSF ####[place] [phone] Alkaline phosphatase (ALP) 68 U/L Normal 40-150 [facility] Comment on above: Performed By: #### P T, PTT, AMYL, CMP, LIPA, PHOS ####[place] [address]#### TRANSF ####[place] [phone] Anion gap 6 mmol/L Low 9-18 [facility] Comment on above: Performed By: #### P T, PTT, AMYL, CMP, LIPA, PHOS ####[place] [address]#### TRANSF ####[place] [phone] Aspartate aminotransferase (AST) 23 U/L Normal 7-40 [facility] Comment on above: Performed By: #### P T, PTT, AMYL, CMP, LIPA, PHOS ####[place] [address]#### TRANSF ####[place] [address] Bilirubin (total) 0.3 mg/dL Normal 0.0-1.5 [facility] Comment on above: Performed By: #### P T, PTT, AMYL, CMP, LIPA, PHOS ####[place] [address]#### TRANSF ####[place] [address] Calcium 8.3 mg/dL Low 8.5-10.5 [facility] Comment on above: Performed By: #### P T, PTT, AMYL, CMP, LIPA, PHOS ####[place] [address]#### TRANSF ####[place] [address] Chloride 103 mmol/L Normal 98-110 [facility] Comment on above: Performed By: #### P T, PTT, AMYL, CMP, LIPA, PHOS ####[place] [address]#### TRANSF ####[place] [address] CO2 26 mmol/L Normal 23-32 [facility] Comment on above: Performed By: #### P T, PTT, AMYL, CMP, LIPA, PHOS ####[place] [address]#### TRANSF ####[place] [phone] Creatinine 0.64 mg/dL Low 0.70-1.40 [facility] Comment on above: Performed By: #### P T, PTT, AMYL, CMP, LIPA, PHOS ####[place] [address]#### TRANSF ####[place] [address] eGFR (non-black) mL/min/{1.73_m2} Normal >60 [facility] Comment on above: Performed By: #### P T, PTT, AMYL, CMP, LIPA, PHOS ####[place] [address]#### TRANSF ####[place] [address] Glucose mass conc 154 mg/dL High 65-100 [facility] Comment on above: Performed By: #### P T, PTT, AMYL, CMP, LIPA, PHOS ####[place] [address]#### TRANSF ####[place] [address] Potassium molar conc 4.2 mmol/L Normal 3.5-5.0 [facility] Comment on above: Performed By: #### P T, PTT, AMYL, CMP, LIPA, PHOS ####[place] [address]#### TRANSF ####[place] [address] Protein 5.3 g/dL Low 6.0-8.4 [facility] Comment on above: Performed By: #### P T, PTT, AMYL, CMP, LIPA, PHOS ####[place] [address]#### TRANSF ####[place] [phone] Sodium 135 mmol/L Normal 135-146 [facility] Comment on above: Performed By: #### P T, PTT, AMYL, CMP, LIPA, PHOS ####[place] [address]#### TRANSF ####[place] [address] Urea nitrogen 22 mg/dL Normal 10-25 [facility] Comment on above: Performed By: #### P T, PTT, AMYL, CMP, LIPA, PHOS ####[place] [address]#### TRANSF ####[place] [phone] Magnesiumon 10-02-2017 Magnesium 1.9 mg/dL Normal 1.7-2.6 [facility] Comment on above: Performed By: #### P T, PTT, AMYL, CMP, LIPA, PHOS ####[facility] [place], [place] [phone]#### TRANSF ####[facility] [address] [place], [place] [phone] NURSING PROGon 10-02-2017 NURSING PROG HNO ID: [id number] thor: Luis (Rn) Clayton Salinasice: (none)Author Type: Registered NurseType: Nursing Progress NoteFiled: 10/02/2017 6:43 PMNote Text: Nursing Progress NotePatient Name: Rocio JacksonMRN: [id number] Location: [facility]/GG-[id number]-09 ____Daily Note:1600: pt transferred from [facility] to [facility]. Pt sitting in chair.Blood transfusion infusing well without difficulty. Nurse emptied JPdrains x2, see IANDO. Pt states he has no pain at this time. Pt has abuprivacaine-hydromorphone epidural. Epidural control in hand. Willmonitor, call light in reach.1833: blood transfusion completed. Pt tolerated well.This note was completed by: Luis Salinas RN [facility] NURSING PROG HNO ID: [id number] thor: Sabrina KenRn) MOUSTAPHA Cornejoervice: NursingAuthor Type: Registered NurseType: Nursing Progress NoteFiled: 10/02/2017 2:48 PMNote Text: Nursing Progress NotePatient Name: Rocio JacksonN: [id number] Location: /QI-PGR-44 ___Daily Note:0700 bedside report received from KEVIN Valerio. Gtt checked.Patient [id number] patient assessed see [id number] OT at bedside assessing patient.0840 patient walked with a walker and OT 1 [id number] patient tolerates chair 1 assist up to stand and march in [id number] called report to [id number] note was completed by: Sabrina Cornejo RN [facility] PROGRESSon 10-02-2017 PROGRESS HNO ID: [id number] thor: Rick Diaze: Critical CareAuthor Type: PhysicianType: [...] discussed with ICU Staff Dr. Boothe.Kolby Brown [facility]DEl[facility] Surgery[C]: [phone] [P]: [id number]: 10/02/2017Time: 10:32 AMSubjective:Interval Events: NAEON. TFs at goal.Physical Exam:BP 134/79 Pulse 88 Temp 36.7 ?C (98 ?F) (Oral) Resp 19 Ht 172.7 cm(5' 7.99 ) Wt 88.8 kg (195 lb 12.3 oz) SpO2 98% BMI 29.77 kg/j0ODZFJNT: Well appearing 62 year old male in no distressNEURO: AAOx3, [id number]: Atraumatic, corpak in palceCHEST: nonlabored breathing on [...] -- 2.0*Liver Function, Amylase, AND LipaseRecent Labs 10/01/1802/29/673137BGGJW 5.3* 5.1* 5.8* 7.8ALB 2.5* 2.6* 3.1* 3.7ALT 27 35 46 38AST 23 32 48* 37ALKPHOS 68 70 91 160*TBILI 0.3 0.3 0.5 0.3LACT -- -- 2.3* --CoagsRecent Labs 09/24/18085APTT 25.9 24.9 -- -- 39.8* 31.6INR 1.2 1.1 1.0 2.0* 2.0* 1.5*Intake and Output:Date 10/01/17 07 - 10/02/17 0659 10/02/17 07 - 10/03/17 0659Shift 7415-1812 3323-2864 4020-3590 24 Hour Total 4921-0540 1653-84092814-2420 24 Hour TotalINTAKE PO 0 97 482 [...] 2886 601.6 3637.6 60 60OUTPUT Urine 310 208 544 4338 75 75 Tube Output ( Indwelling Urinary Catheter 09/30/17 0909 [place] 16Fr) 310 344 568 2923 75 75 Tubes 70 135 35 240 [...] BM (mL) 0 0 Shift Total 380 574 153 4011 75 75Weight (kg) 81.1 81.1 88.8 88.8 88.8 88.8 88.8 88.8Current Medications:Current hospital medications:magnesium sulfate in water 2 g in sterile water 50 ml 2 g INTRAVENOUS ONCEsodium phosphate 15 mmol in D5W 250 mL 15 mmol INTRAVENOUS ONCEdocusate sodium 100 mg cap(s) (COLACE) 100 mg ORAL BIDphenol 1 [place] (CHLORASEPTIC) 1 [place] MUCOUS MEMBRANE (TOPICAL MOUTH ANDTHROAT) q 2 [...] (MOTRIN) 800 mg ORAL q 8 HHYDROmorphone COMMUNICATIONS CONSULTANT 0.5 mg/mL in NaCl 0.9% 100 mL INTRAVENOUS CONTINUOUSHYDROmorphone 0.5 mg/mL COMMUNICATIONS CONSULTANT CLINICIAN DOSE 0.2-0.4 mg 0.2-0.4 mgINTRAVENOUS (PACU) PRNHYDROmorphone 0.5 mg/mL COMMUNICATIONS CONSULTANT CLINICIAN DOSE 0.2 mg 0.2 mg INTRAVENOUS [...] 5 mg tab Take by mouth once daily.[facility] STAFF PHYSICIAN SUPERVISING RESIDENTI have reviewed the [...] SERVICE: 10/02/2017TIME of SERVICE: 12:44 PM Normal [facility] PROGRESS HNO ID: [id number] thor: Michael Cedillo) AugustinService: General SurgeryAuthor Type: [...] that 2pm- IPCs, SQH- anticipate transfer to [facility] to be discussed with staffSubjective:No acute events overnight. Tolerated sips of liquids no n/v. No flatus orBM.Physical Exam:BP 134/79 Pulse 88 Temp 36.7 ?C (98 ?F) (Oral) Resp 19 Ht 172.7 cm(5' 7.99 ) Wt 88.8 kg (195 lb 12.3 oz) SpO2 98% BMI 29.77 kg/y5BGZHXNS: no acute distressABDOMEN: soft, diffusely tender, nondistended. [...] - 10/02/17 0659 10/02/17699 - 10/03/17 0659Shift 2978-3408 1287-0306 4060-9171 24 Hour Total 9154-0775 9732-70927364-7738 24 Hour TotalINTAKE PO 0 97 482 [...] 2886 601.6 3637.6 60 60OUTPUT Urine 310 145 713 7031 75 75 Tube Output ( Indwelling Urinary Catheter 09/30/17 0909 [place] 16Fr) 310 184 442 0936 75 75 Tubes 70 135 35 240 [...] BM (mL) 0 0 Shift Total 380 461 846 3229 75 75Weight (kg) 81.1 81.1 88.8 88.8 88.8 88.8 88.8 88.8Current Medications:Current hospital medications:magnesium sulfate in water 2 g in sterile water 50 ml 2 g INTRAVENOUS ONCEsodium phosphate 15 mmol in D5W 250 mL 15 mmol INTRAVENOUS ONCEdocusate sodium 100 mg cap(s) (COLACE) 100 mg ORAL BIDphenol 1 [place] (CHLORASEPTIC) 1 [place] MUCOUS MEMBRANE (TOPICAL MOUTH ANDTHROAT) q 2 [...] (MOTRIN) 800 mg ORAL q 8 HHYDROmorphone COMMUNICATIONS CONSULTANT 0.5 mg/mL in NaCl 0.9% 100 mL INTRAVENOUS CONTINUOUSHYDROmorphone 0.5 mg/mL COMMUNICATIONS CONSULTANT CLINICIAN DOSE 0.2-0.4 mg 0.2-0.4 mgINTRAVENOUS (PACU) PRNHYDROmorphone 0.5 mg/mL COMMUNICATIONS CONSULTANT CLINICIAN DOSE 0.2 mg 0.2 mg INTRAVENOUS q 6 HPRNinsulin lispro injection (rapid acting) (HumaLOG) SUBCUTANEOUS q 6 Hheparin 5,000 Units injection 5,000 Units SUBCUTANEOUS q 12 Hmetoclopramide HCl 10 mg injection (REGLAN) 10 mg INTRAVENOUS q 6 H PRNSignature: Jennifer Adan, MDDate: October 02, 2017Time: 9:55 AMPatient Name: Rocio TorresschPETRONA: [id number]*Please page the electrical continuity inspector pager from 6pm-6am and all day on weekends* Normal [facility] Phosphoruson 10-02-2017 Phosphate 2.3 mg/dL Low 2.5-4.5 [facility] Comment on above: Performed By: #### P T, PTT, AMYL, CMP, LIPA, PHOS ####[facility] [place], [place] [phone]#### TRANSF ####[facility] [address] [place], [place] [phone] THERAPY NTon 10-02-2017 THERAPY NT HNO ID: [id number] thor: Jacqueline (Ot) JeancarlosService: Occupational TherapyAuthor Type: Occupational TherapistType: Therapy (PT/OT/Speech/Resp)Filed: 10/02/2017 8:55 AMNote Text:Occupational Therapy EvaluationSERVICE DATE: 10/02/2017SERVICE TIME: 08 to 842ROOM: EA-PHF-60Sloycmvetmw Discharge Disposition: Acute RehabJustification For Post Acute [...] Pt?s pertinent PMH includes: DM, HTN,CAD, glaucoma, [place], cholecystectomy c/b leak found to have duodenal [...] Involving Cognitive Functions andAwarenessInterventions Provided: Evaluation;Therapeutic Activity (20936)$ Evaluation-Low (03697) Billed Units: 1 unitTherapeutic Activity (51292) Treatment Minutes: 81 unitSkilled Intervention(s): Instructed patient [...] has assist with all IADLs. Works in [employer]. Amb Ind.OBJECTIVE:Orientation Deficits: ConfusedResponsiveness: AwakeFollows Commands: 2-step [...] October 02, 2017 : 8:50 AM PAGER: [phone] Normal [facility] Type and Screenon 10-02-2017 ABO/RH(D) Positive Normal [facility] Comment on above: Performed By: #### P T, PTT, AMYL, CMP, LIPA, PHOS ####[place] [address]#### TRANSF ####[place] [address] Antibody Screen Negative [facility] Comment on above: Performed By: #### P T, PTT, AMYL, CMP, LIPA, PHOS ####[address]#### TRANSF ####[place] [phone] Amylaseon 10-01-2017 Amylase 151 U/L High 0-137 [facility] Comment on above: Performed By: #### P T, PTT, AMYL, CMP, LIPA, PHOS ####[place] [address]#### TRANSF ####[facility] [address] [place], [place] [phone] Amylase,Body Fluidon 018 Amylase 817 U/L Critically abnormal See Comment [facility] Comment on above: Result [...] CLSI document C49-A. SAIMA Contreras: Clinical LaboratoryStandards [place]; 2007.3. Kya EDUARDO, Angelia RC, Nimo DJ. Use of cyst fluid CEA,CA19-9, and amylase for evaluation of pancreatic lesions. ClinicalBiochemistry. 2009;42:1373-6982.This test was developed and its performance characteristicsdetermined by [facility]'s [facility] Pathology andLaboratory Medicine [place] ([facility]).It has not been cleared or approved by the FDA. [facility] is regulatedunder CLIA as qualified to perform high-complexity testing.This test is used for clinical purposes. It should not be regarded asinvestigational or for research. Performed By: #### P T, PTT, AMYL, CMP, LIPA, PHOS ####[facility] [place], [place] [phone]#### TRANSF ####[facility] [address] [place], [place] [phone] Amylase 1954 U/L Critically abnormal See Comment [facility] Comment on above: Result [...] CLSI document C49-A. SAIMA Contreras: Clinical LaboratoryStandards [place]; 2007.3. Kya EDUARDO, Angelia RC, Nimo DJ. Use of cyst fluid CEA,CA19-9, and amylase for evaluation of pancreatic lesions. ClinicalBiochemistry. 2009;42:1169-1589.This test was developed and its performance characteristicsdetermined by [facility]'s [facility] Pathology andLaboratory Medicine [place] ([facility]).It has not been cleared or approved by the FDA. [facility] is regulatedunder CLIA as qualified to perform high-complexity testing.This test is used for clinical purposes. It should not be regarded asinvestigational or for research. Performed By: #### P T, PTT, AMYL, CMP, LIPA, PHOS ####[facility] [place], [place] [phone]#### TRANSF ####[facility] [address] [place], [place] [phone] Fluid Type Peritoneal Fluid Normal [facility] Comment on above: Performed By: #### P T, PTT, AMYL, CMP, LIPA, PHOS ####[facility] [place], [place] [phone]#### TRANSF ####[facility] [place], [place] [phone] Result Comment: LEFT CASE MGT INIT SANDRAon 2017 CASE MGT INIT SANDRA HNO ID: [id number] thor: Catherine Humphries (Rn) MOUSTAPHA Bradshawervice: Case ManagementAuthor Type: Registered NurseType: Care Mgt Initial AssessmentFiled: 10/01/2017 12:22 PMNote Text:CARE MANAGEMENT: ASSESSMENT AND DISCHARGE PLANSERVICE DATE: 10/01/2017SERVICE TIME: 11:13 amPRICHILDREN[facility] CARE PHYSICIAN:Adriane Nichols, RAJEEVhone: [phone] STATUS: InpatientNeeds Prior to Discharge: To Be Determined;OT/PT EvaluationMEDICAL:Patient/Re presentative Stated Goals:To improve my functional statusTo return home to life as it Health systemealth Insurance:[facility] Issues Impacting Discharge Plan: DM, [...] Services or Home Care? [facility]Health Care Agency: [facility]; ; Active.Equipment Prior to Admission: Tub bench/chairWalkerHas the Patient Been in a Retirement Facility in the Past 30 days?Yes. Where and Dates: [facility] in [place] NZALXS:Emily ing Arrangement: HomeLives With: Sister since his discharge from [facility] in August of 2017.Financial Resources: Patient is employedPrimary Contact: Extended Emergency Contact InformationPrimary Emergency Contact: Owen Muller: [place], [place] [address]Ruhx Tfnxgxnr: SiblingSupportive: YesOther Important Patient Contacts: NoneCaregiver Assessment:Caregiver [...] - 0I feel financially burdened by my enz-jo-bvkwhm expenses for myprescription medication: Disagree mostly -0Patient [...] OF CHOICE EXPLAINED:Yes on 10/01/17POTENTIAL TRANSITION PLANSHome CareMidway City OT/PTSkilled Nursing Facility/Intermediate Care FacilityCM met with patient at bedside. His two sisters were in the room at thetime, and patient approved their staying in the room during theassessment. 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 He currently lives with his sister who ishelping with his care since his discharge from [facility] in March [id number]. He is active with [facility], and stated he washappy with their services. Patient will need a PT/OT evaluation todetermine skilled/safety needs. CM will continue to follow plan of care toassist with discharge planning.SIGNATURE: Catherine Bradshaw RN PATIENT NAME: Rocio Sibley: October 01, 2017 : 11:13 AM PAGER/CONTACT #: [phone] Normal [facility] CBC and Differentialon 10-01 Abs Baso <0.03 Normal <0.11 [facility] Comment on above: Performed By: #### P T, PTT, AMYL, CMP, LIPA, PHOS ####[place] [address]#### TRANSF ####[place] [address] [place] [phone] Abs Elmore 0.60 k/uL Normal <0.87 [facility] Comment on above: Performed By: #### P T, PTT, AMYL, CMP, LIPA, PHOS ####[place] [address]#### TRANSF ####[place] [phone] Abs Neut 5.57 k/uL Normal 1.45-7.50 [facility] Comment on above: Performed By: #### P T, PTT, AMYL, CMP, LIPA, PHOS ####[place] [address]#### TRANSF ####[place] [address] Basophils/100 WBC Auto (Bld) 0.0 % Normal [facility] Comment on above: Performed By: #### P T, PTT, AMYL, CMP, LIPA, PHOS ####[place] [address]#### TRANSF ####[place] [phone] DTYPE Auto Diff Normal [facility] Comment on above: Performed By: #### P T, PTT, AMYL, CMP, LIPA, PHOS ####[place] [address]#### TRANSF ####[place] [address] Eosinophils 10*3/uL Normal <0.46 [facility] Comment on above: Performed By: #### P T, PTT, AMYL, CMP, LIPA, PHOS ####[place] [address]#### TRANSF ####[place] [address] Eosinophils/100 leukocytes 0.0 % Normal [facility] Comment on above: Performed By: #### P T, PTT, AMYL, CMP, LIPA, PHOS ####[place] [address]#### TRANSF ####[place] [address] Erythrocyte distribution width Auto Ratio (RBC) 16.4 % High 11.5-15.0 [facility] Comment on above: Performed By: #### P T, PTT, AMYL, CMP, LIPA, PHOS ####[place] [address]#### TRANSF ####[place] [phone] Erythrocytes (RBC) 3.53 10*6/uL Low 4.20-6.00 [facility] Comment on above: Performed By: #### P T, PTT, AMYL, CMP, LIPA, PHOS ####[place] [address]#### TRANSF ####[place] [phone] Hematocrit (HCT) 27.4 % Low 39.0-51.0 [facility] Comment on above: Performed By: #### P T, PTT, AMYL, CMP, LIPA, PHOS ####[place] [address]#### TRANSF ####[place] [phone] Hemoglobin mass conc (Bld) 8.8 g/dL Low 13.0-17.0 [facility] Comment on above: Performed By: #### P T, PTT, AMYL, CMP, LIPA, PHOS ####[place] [address]#### TRANSF ####[place] [phone] Lymphocytes 2.21 10*3/uL Normal 1.00-4.00 [facility] Comment on above: Performed By: #### P T, PTT, AMYL, CMP, LIPA, PHOS ####[place] [address]#### TRANSF ####[place] [address] Lymphocytes/100 leukocytes 26.4 % Normal [facility] Comment on above: Performed By: #### P T, PTT, AMYL, CMP, LIPA, PHOS ####[place] [address]#### TRANSF ####[place] [address] MCH 24.9 pG Low 26.0-34.0 [facility] Comment on above: Performed By: #### P T, PTT, AMYL, CMP, LIPA, PHOS ####[place] [address]#### TRANSF ####[place] [phone] MCHC mass conc (RBC) 32.1 g/dL Normal 30.5-36.0 [facility] Comment on above: Performed By: #### P T, PTT, AMYL, CMP, LIPA, PHOS ####[address]#### TRANSF ####[place] [address] MCV 77.6 fL Low 80.0-100.0 [facility] Comment on above: Performed By: #### P T, PTT, AMYL, CMP, LIPA, PHOS ####[place] [address]#### TRANSF ####[place] [address] Monocytes/100 leukocytes 7.2 % Normal [facility] Comment on above: Performed By: #### P T, PTT, AMYL, CMP, LIPA, PHOS ####[place] [address]#### TRANSF ####[place] [address] Neutrophils/100 WBC Auto (Bld) 66.4 % Normal [facility] Comment on above: Performed By: #### P T, PTT, AMYL, CMP, LIPA, PHOS ####[address]#### TRANSF ####[place] [address] Platelet mean volume (PMV) 9.7 fL Normal 9.0-12.7 [facility] Comment on above: Performed By: #### P T, PTT, AMYL, CMP, LIPA, PHOS ####[address]#### TRANSF ####[place] [address] [place], [place] [phone] Platelets 230 10*3/uL Normal 150-400 [facility] Comment on above: Performed By: #### P T, PTT, AMYL, CMP, LIPA, PHOS ####[address] [phone]#### TRANSF ####[address] [phone] WBC (Leukocytes) 8.38 10*3/uL Normal 3.70-11.[address] [facility] Comment on above: Performed By: #### P T, PTT, AMYL, CMP, LIPA, PHOS ####[address] [phone]#### TRANSF ####[address] [phone] CONSULT PROGon 10-01-2017 CONSULT PROG HNO ID: [id number] thor: Matilda Malloy: Pain ManagementAuthor Type: AnesthesiologistType: [...] catheter placed: Day of surgeryMEDICATIONS:Epidural Medications and COMMUNICATIONS CONSULTANT SettingsBupivacaine 0.1% + DilaudidBasal rate: 6 mL/hr.Patient Demand Bolus: 3 mL.Lockout interval: 4 minutes.Additional medication(s) given: See belowAnticoagulation therapy: Lovenox 40 mgLast Dose given: due at [address] [place] [address] medications:magnesium sulfate in sterile water 4 g [...] (MOTRIN) 800 mg ORAL q 8 HHYDROmorphone COMMUNICATIONS CONSULTANT 0.5 mg/mL in NaCl 0.9% 100 mL INTRAVENOUS CONTINUOUSHYDROmorphone 0.5 mg/mL COMMUNICATIONS CONSULTANT CLINICIAN DOSE 0.2-0.4 mg 0.2-0.4 mgINTRAVENOUS (PACU) PRNHYDROmorphone 0.5 mg/mL COMMUNICATIONS CONSULTANT CLINICIAN DOSE 0.2 mg 0.2 mg INTRAVENOUS q 6 HPRNinsulin lispro injection (rapid acting) (HumaLOG) SUBCUTANEOUS q 6 Hheparin 5,000 Units injection 5,000 Units SUBCUTANEOUS q 12 Henoxaparin 40 mg injection (LOVENOX) 40 mg SUBCUTANEOUS DAILYmetoclopramide HCl 10 mg injection (REGLAN) 10 mg INTRAVENOUS q 6 H PRNPHYSICAL EXAM:Patient Vitals for the past 8 hrs: Temp Temp src Pulse Resp SpO2 Height Nyzrqn69/05/18 0700 - - 87 17 97 % [...] 01, 2017 : 8:47 AM PAGER/CONTACT #: [facility] [phone] Normal [facility] Comp Metabolic Panelon 10-01 Alanine aminotransferase (ALT) 35 U/L Normal 5-50 [facility] Comment on above: Performed By: #### P T, PTT, AMYL, CMP, LIPA, PHOS ####[facility] [place], [place] [phone]#### TRANSF ####[facility] [place], [place] [phone] Albumin 2.6 g/dL Low 3.5-5.0 [facility] Comment on above: Result Comment: Revi ewed Performed By: #### P T, PTT, AMYL, CMP, LIPA, PHOS ####[place] [address]#### TRANSF ####[place] [phone] Alkaline phosphatase (ALP) 70 U/L Normal 40-150 [facility] Comment on above: Performed By: #### P T, PTT, AMYL, CMP, LIPA, PHOS ####[place] [address]#### TRANSF ####[place] [address] Anion gap 12 mmol/L Normal 9-18 [facility] Comment on above: Performed By: #### P T, PTT, AMYL, CMP, LIPA, PHOS ####[place] [address]#### TRANSF ####[place] [address] Aspartate aminotransferase (AST) 32 U/L Normal 7-40 [facility] Comment on above: Performed By: #### P T, PTT, AMYL, CMP, LIPA, PHOS ####[place] [address]#### TRANSF ####[place] [address] Bilirubin (total) 0.3 mg/dL Normal 0.0-1.5 [facility] Comment on above: Performed By: #### P T, PTT, AMYL, CMP, LIPA, PHOS ####[place] [address]#### TRANSF ####[place] [address] Calcium 7.7 mg/dL Low 8.5-10.5 [facility] Comment on above: Performed By: #### P T, PTT, AMYL, CMP, LIPA, PHOS ####[place] [address]#### TRANSF ####[place] [address] Chloride 105 mmol/L Normal 98-110 [facility] Comment on above: Performed By: #### P T, PTT, AMYL, CMP, LIPA, PHOS ####[place] [address]#### TRANSF ####[place] [address] CO2 23 mmol/L Normal 23-32 [facility] Comment on above: Performed By: #### P T, PTT, AMYL, CMP, LIPA, PHOS ####[place] [address]#### TRANSF ####[place] [address] Creatinine 0.78 mg/dL Normal 0.70-1.40 [facility] Comment on above: Performed By: #### P T, PTT, AMYL, CMP, LIPA, PHOS ####[place] [address]#### TRANSF ####[place] [address] eGFR (non-black) mL/min/{1.73_m2} Normal >60 [facility] Comment on above: Performed By: #### P T, PTT, AMYL, CMP, LIPA, PHOS ####[place] [address]#### TRANSF ####[place] [address] Glucose mass conc 145 mg/dL High 65-100 [facility] Comment on above: Performed By: #### P T, PTT, AMYL, CMP, LIPA, PHOS ####[place] [address]#### TRANSF ####[place] [address] Potassium molar conc 4.8 mmol/L Normal 3.5-5.0 [facility] Comment on above: Performed By: #### P T, PTT, AMYL, CMP, LIPA, PHOS ####[place] [address]#### TRANSF ####[place] [address] Protein 5.1 g/dL Low 6.0-8.4 [facility] Comment on above: Performed By: #### P T, PTT, AMYL, CMP, LIPA, PHOS ####[place] [address]#### TRANSF ####[place] [address] Sodium 140 mmol/L Normal 135-146 [facility] Comment on above: Performed By: #### P T, PTT, AMYL, CMP, LIPA, PHOS ####[place] [address]#### TRANSF ####[place] [address] Urea nitrogen 20 mg/dL Normal 10-25 [facility] Comment on above: Performed By: #### P T, PTT, AMYL, CMP, LIPA, PHOS ####[place] [address]#### TRANSF ####[place] [phone] HISTORY PHYSICALon 8 HISTORY PHYSICAL HNO ID: [id number] thor: Maria De Jesus Schneider (Fel)ervice: Critical [...] Date- ANGIOPLASTY HX 05/15/2011 2 stents s/p [place];[facility]- CHOLECYSTECTOMY 08/11/2017 [facility]- PICC LINE INSERT/CONSULT 08/16/2017No family history on [...] 110/88 CVP: 2 Resp: 18 SpO2: 100 %[place]ani Readings: Not applicableRESPIRATORYMechani rachid Ventilation: No. Supplemental Oxygen: Yes. 2 L NCRecent Labs 09/30/154954TUGN 2.3*PHYSICAL EXAMNeuro: AwakePulmonary: Clear to auscultation. Breath [...] (TORADOL) 15 mg INTRAVENOUS q 6 HHYDROmorphone COMMUNICATIONS CONSULTANT 0.5 mg/mL in NaCl 0.9% 100 mL INTRAVENOUS CONTINUOUSHYDROmorphone 0.5 mg/mL COMMUNICATIONS CONSULTANT CLINICIAN DOSE 0.2-0.4 mg 0.2-0.4 mgINTRAVENOUS (PACU) PRNHYDROmorphone 0.5 mg/mL COMMUNICATIONS CONSULTANT CLINICIAN DOSE 0.2 mg 0.2 mg INTRAVENOUS [...] staff: Dr. Junior: epidural in place, Hydromorphone COMMUNICATIONS CONSULTANT, ToradolCV: Intermittent hypotension, no vasopressor requiredPulm: CTA [...] 01, 2017 : 5:54 AM PAGER/CONTACT #: [phone] Normal [facility] Magnesiumon 10-01-2017 Magnesium 2.1 mg/dL Normal 1.7-2.6 [facility] Comment on above: Performed By: #### P T, PTT, AMYL, CMP, LIPA, PHOS ####[place] [address]#### TRANSF ####[place] [address] Magnesium 1.3 mg/dL Low 1.7-2.6 [facility] Comment on above: Performed By: #### P T, PTT, AMYL, CMP, LIPA, PHOS ####[place] [address]#### TRANSF ####[place] [address] NURSING PROGon 10-01-2017 NURSING PROG HNO ID: [id number] thor: Cee (Rn) MOUSTAPHA Dialervice: (none)Author Type: Registered NurseType: Nursing Progress NoteFiled: 10/01/2017 7:58 PMNote Text: Nursing Progress NotePatient Name: Rocio JacksonMRN: [id number] Location: [facility]/FD-[id number] ___Daily Note:1900: Bedside report received from previous shift RN.This note was completed by: Cee Dial RN [facility] NURSING PROG HNO ID: [id number] thor: Marysol (Rn) Kimberli, RNService: Critical CareAuthor Type: Registered NurseType: Nursing Progress NoteFiled: 10/01/2017 1:35 PMNote Text: Nursing Progress NotePatient Name: Rocio JacksonMRN: [id number] Location: [facility]/IM-BCH-46 ___Daily Note:0715-bedside report received from Reed BATEMAN.0720- surgical team at bedside to assess patient. 1 L LR bolus ordered forhypotension.1125- Dr. Raya text paged SICU 7 D.F.-- Patient's SBP continues to remainlow after 2 fluid boluses, Dr. Boothe asked that I page pain management tosee if it would be appropriate to decrease the basal rate on his epidural.Thank you, Laura BATEMAN [phone] . Dr. Raya returned page, will place order todecrease basal rate of epidural to 4cc/hr.1330- Dr. Brown text paged SICU 7 D.F.-- patient's urine output has uhof90ve/hr x2 hours. Blood pressure has improved, we decreased the basal rateof his epidural. Also, he would like throat spray, his throat is sore.Thank you, Laura BATEMAN [phone] This note was completed by: Marysol Ag RN [facility] NURSING PROG HNO ID: [id number] thor: Radha Ndiaye NsService: (none)Author Type: (none)Type: Nursing Progress NoteFiled: 10/01/2017 6:01 AMNote Text: Nursing Progress NotePatient Name: Rocio Boudreaux: [id number] Location: [place] [address]/EH-ECE-63 ___Daily Note:1909- Report complete. VSS on 6L [...] changes, see flowsheet.Labs and amylase drawn and vdrx4745- MD notified of low magnesium level, waiting for mag replacement tocome up from yuowpzkt2356- Report given to day shift nurseThis note was completed by: Reed Rincon RN [facility] NUTRITIONon 10-01-2017 NUTRITION HNO ID: [id number] thor: Bailey Segura) Purvie: Nutrition TherapyAuthor Type: [...] mass 09/30, who was admitted to the [facility] further care.Present Diet Order: NPO and [...] 81 kgResting Metabolic Rate: 1599Estimated kilocalorie needs: 4355-0303 kilocalories determined by 20-25kcal/kgEstimated protein needs: 105-138 grams determined by 1.3-1.7 g/kg DosingweightEstimated fluid needs: 3917-8929 milliliters based on 1 mL per kcalNUTRITION [...] lb 12.7 oz) SpO2 95% BMI 27.19 kg/e6Dvtfiy Labs GLUC 145*BUN 20CREAT 0.78NA 140K 4.8CHLOR [...] (TORADOL) 15 mg INTRAVENOUS q 6 HHYDROmorphone COMMUNICATIONS CONSULTANT 0.5 mg/mL in NaCl 0.9% 100 mL INTRAVENOUS CONTINUOUSHYDROmorphone 0.5 mg/mL COMMUNICATIONS CONSULTANT CLINICIAN DOSE 0.2-0.4 mg 0.2-0.4 mgINTRAVENOUS (PACU) PRNHYDROmorphone 0.5 mg/mL COMMUNICATIONS CONSULTANT CLINICIAN DOSE 0.2 mg 0.2 mg INTRAVENOUS [...] October 01, 2017 : 1:49 PM PAGER: [phone] further assistance and weekends please page the Group [phone] [facility] PROGRESSon 10-01-2017 PROGRESS HNO ID: [id number] thor: Rick Stinson: Critical CareAuthor Type: PhysicianType: [...] theabove surgeryNeuro:- Analgesia: Tylenol, toradol/Motrin, bupivacaine, dilaudid COMMUNICATIONS CONSULTANT onceepidural removed- Anxiety/Sedation: NoneCardiovascular:- ASA 162- statin- [...] discussed with ICU Staff Dr. Boothe.Kolby Brown MDGenemercy health st. [facility] Surgery[C]: [phone] [P]: 05245Aqsw: 10/01/2017Time: 9:59 AMSubjective:Interval Events: NAEON. Pain controlled. Thirsty. Slept ok.Physical Exam:BP 110/88 Pulse 87 Temp 37.4 ?C (99.3 ?F) (Oral) Resp 17 Ht 172.7cm (5' 7.99 ) Wt 81.1 kg (178 lb 12.7 oz) SpO2 97% BMI 27.19 kg/y6GXBWHEU: Well appearing 62 year old male in no distressNEURO: AAox3, WBG65GCVOM: Corpak/NGT in placeCHEST: nonlabored breathing on RA. [...] - 10/01/17 0659 10/01/17699 - 10/02/17 0659Shift 1551-4633 9330-5898 1694-7090 24 Hour Total 6411-0404 0901-16985346-3728 24 Hour TotalINTAKE IV 3240.1 1967 5207.1 [...] BMs 0 x 0 x Shift Total 386 648 2836 40 40Weight (kg) 81.1 81.1 81.1 81.1 [...] (MOTRIN) 800 mg ORAL q 8 HHYDROmorphone COMMUNICATIONS CONSULTANT 0.5 mg/mL in NaCl 0.9% 100 mL INTRAVENOUS CONTINUOUSHYDROmorphone 0.5 mg/mL COMMUNICATIONS CONSULTANT CLINICIAN DOSE 0.2-0.4 mg 0.2-0.4 mgINTRAVENOUS (PACU) PRNHYDROmorphone 0.5 mg/mL COMMUNICATIONS CONSULTANT CLINICIAN DOSE 0.2 mg 0.2 mg INTRAVENOUS [...] 5 mg tab Take by mouth once daily.[facility] STAFF PHYSICIAN SUPERVISING RESIDENTI have reviewed the [...] of SERVICE: 10/01/2017TIME of SERVICE: 1:30 PM [facility] PROGRESS HNO ID: [id number] thor: Michael Cedillo) AugustinService: General SurgeryAuthor Type: PhysicianType: Progress NotesFiled: 10/01/2017 1:19 PMNote Text:GENERAL SURGERY RESIDENT PROGRESS NOTEAssessment/Plan62 year old male hx HTN, DM, CAD s/p PCI, who underwent a classic whipplefor an obstructing duodenal mass 09/30, who was admitted to the SICU forfurther care.Plan:Start TF at trickle and ok to advance to [facility] ROMINA amylase x2D/c NGTAnticipate ok to Tx to RNF in PM if pressures are betterContinue EpiduralCaleb MD JaneGeneral Surgery, [id number] Pager: [phone], General Surgery Pager [phone]/11/13 9:19 AMPlease page [phone] on weekends and between 6 PM and 6 AM.SubjectiveINTERVAL HPI :Acute events overnight: none. Pain: w/c. Nausea: No. Vomiting: No. Flatus:No. Bowel movement: No. No other complaints.ObjectivePHYSICAL EXAM:General Appearance: in bed in NADLungs: nonlabored breathingAbdomen: soft, appropriately-tender, non-distendedIncisions:small amount of blood on dressingDrains:serosang x2Labs:CBC, BMP, MG, PHOSRecent Labs 100 805 18439409/02/18035308/31/1803WBC 8.38 8.24 7.14 7.49 4.87 4.43 4.93HB [...] (MOTRIN) 800 mg ORAL q 8 HHYDROmorphone COMMUNICATIONS CONSULTANT 0.5 mg/mL in NaCl 0.9% 100 mL INTRAVENOUS CONTINUOUSHYDROmorphone 0.5 mg/mL COMMUNICATIONS CONSULTANT CLINICIAN DOSE 0.2-0.4 mg 0.2-0.4 mgINTRAVENOUS (PACU) PRNHYDROmorphone 0.5 mg/mL COMMUNICATIONS CONSULTANT CLINICIAN DOSE 0.2 mg 0.2 mg INTRAVENOUS q 6 HPRNinsulin lispro injection (rapid acting) (HumaLOG) SUBCUTANEOUS q 6 Hheparin 5,000 Units injection 5,000 Units SUBCUTANEOUS q 12 Henoxaparin 40 mg injection (LOVENOX) 40 mg SUBCUTANEOUS DAILYmetoclopramide HCl 10 mg injection (REGLAN) 10 mg INTRAVENOUS q 6 H PRN Normal [facility] Phosphoruson 10-01-2017 Phosphate 3.0 mg/dL Normal 2.5-4.5 [facility] Comment on above: Performed By: #### P T, PTT, AMYL, CMP, LIPA, PHOS ####[facility] [place], [place] [phone]#### TRANSF ####[facility] [place], [place] [phone] Phosphate 4.4 mg/dL Normal 2.5-4.5 [facility] Comment on above: Performed By: #### P T, PTT, AMYL, CMP, LIPA, PHOS ####[facility] [place], [place] [phone]#### TRANSF ####[facility] [address] [place], [place] [phone] THERAPY NTon 10-01-2017 THERAPY NT HNO ID: [id number] thor: Son Salgado (Pt) JacksonService: Physical TherapyAuthor Type: Physical TherapistType: Therapy (PT/OT/Speech/Resp)Filed: 10/01/2017 6:13 PMNote Text:Physical Therapy EvaluationSERVICE DATE: 10/01/2017SERVICE TIME: 1010 to 1045ROOM: [id number] Discharge Disposition: Acute RehabJustification For Post Acute Needs: Anticipate patient will tolerate 3hours of daily therapy at the time of [facility];Cognition intact;Medically complex;Willing to participate;Livingthe community premorbidly;Good family [...] Reduced mobility-other;Muscle Weakness (generalized)Interventions Provided: Evaluation;Therapeutic Activity (35130)$ Evaluation-Moderate (77505) Billed Units: 1 unitTherapeutic Activity (29285) Treatment Minutes: 101 unitSkilled Intervention(s): Instructed patient [...] mobility assessmentRelevant Past Medical History: HTN, DM, [place], richelle 08/11/17, ARF, refer tochart for full [...] See Comment (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, 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)Assistance Required With: Cleaning;Laundry;Meals;Other : See Comment(Shares IADL's)OBJECTIVE:CURRENT [...] 01, 2017 : 6:08 PM PAGER/CONTACT #: [phone] [facility] ANES Ila 09-30-2017 ANES POST HNO ID: [id number] thor: Bogdan Montenegro, IService: AnesthesiologyAuthor Type: AnesthesiologistType: [...] 30, 2017 : 5:52 PM PAGER/CONTACT #: [phone] [facility] ANES PREOPon 09-30-2017 ANES PREOP HNO ID: [id number] thor: Brian BarriossService: AnesthesiologyAuthor Type: AnesthesiologistType: Anesthesia PreOpFiled: 09/30/2017 8:34 AMNote Text:REGIONAL ANESTHESIOLOGY DAY OF SURGERY NOTEPATIENT NAME: Rocio JacksonMRN: [id number]: 1957Procedure(s) (LRB):LAPAROSCOPY DIAGNOSTIC (N/A)WHIPPLE PROCEDURE, WITH PANCREATOJEJUNOST [...] with exertion.Denies change in functional capacity.Denies GERD.HTNNIDMHx AZ s/p stent 2010; no issues sinceBaseline anemiaChronic [...] Date- ANGIOPLASTY HX 05/15/2011 2 stents s/p [place];[facility]- CHOLECYSTECTOMY 08/11/2017 [facility]- PICC LINE INSERT/CONSULT 08/16/2017No family history on [...] 30, 2017 : 8:29 AM PAGER/CONTACT #: [phone] (pager) Normal [facility] APTTon 09-30-2017 aPTT 25.9 s Normal 23.0-32.4 [facility] Comment on above: Result [...] laboratory APTT reagent in use throughout the [facility]. Performed By: #### P T, PTT, AMYL, CMP, LIPA, PHOS ####[facility] [place], [place] [phone]#### TRANSF ####[facility] [place], [place] [phone] BRIEF OP NOTon 09-30-2017 BRIEF OP NOT HNO ID: [id number] thor: Mundo (Res)(Hist) ElvaisService: General SurgeryAuthor Type: ResidentType: Brief Op NoteFiled: 09/30/2017 5:02 PMNote Text:BRIEF OP NOTELOG ID: [id number]/Procedure Date: 09/30/2017Incision/Procedure Start Time: 9:40 AMIncision Close/Procedure End Time: 4:46 PMSurgeon(s)/Proceduralist(s ) and Travel Registered Nurse Oncology(s):Surgeon(s) and Role: * Michael Cedillo) Jolley - [...] massPost-Op/Post-Procedure Diagnosis: Duodenal obstruction [K31.5], sameSIGNATURE: Mundo Villanueva MD PATIENT NAME: Rocio JacksonDATE: September 30, 2017 : 4:58 PM PAGER/CONTACT #: Normal [facility] CBCon 09-30-2017 Erythrocyte distribution width Auto Ratio (RBC) 16.2 % High 11.5-15.0 [facility] Comment on above: Performed By: #### P T, PTT, AMYL, CMP, LIPA, PHOS ####[place] [address]#### TRANSF ####[place] [address] Erythrocytes (RBC) 3.96 10*6/uL Low 4.20-6.00 [facility] Comment on above: Performed By: #### P T, PTT, AMYL, CMP, LIPA, PHOS ####[place] [address]#### TRANSF ####[place] [address] Hematocrit (HCT) 30.7 % Low 39.0-51.0 [facility] Comment on above: Performed By: #### P T, PTT, AMYL, CMP, LIPA, PHOS ####[place] [address]#### TRANSF ####[place] [address] Hemoglobin mass conc (Bld) 10.1 g/dL Low 13.0-17.0 [facility] Comment on above: Performed By: #### P T, PTT, AMYL, CMP, LIPA, PHOS ####[place] [address]#### TRANSF ####[place] [address] MCH 25.5 pG Low 26.0-34.0 [facility] Comment on above: Performed By: #### P T, PTT, AMYL, CMP, LIPA, PHOS ####[place] [address]#### TRANSF ####[place] [address] MCHC mass conc (RBC) 32.9 g/dL Normal 30.5-36.0 [facility] Comment on above: Performed By: #### P T, PTT, AMYL, CMP, LIPA, PHOS ####[place] [address]#### TRANSF ####[address] Av[address] [place] [phone] MCV 77.5 fL Low 80.0-100.0 [facility] Comment on above: Performed By: #### P T, PTT, AMYL, CMP, LIPA, PHOS ####[place] [address]#### TRANSF ####[address] Av[address] [place] [phone] Platelet mean volume (PMV) 9.4 fL Normal 9.0-12.7 [facility] Comment on above: Performed By: #### P T, PTT, AMYL, CMP, LIPA, PHOS ####[address]#### TRANSF ####[place] [phone] Platelets 242 10*3/uL Normal 150-400 [facility] Comment on above: Performed By: #### P T, PTT, AMYL, CMP, LIPA, PHOS ####[place] [address]#### TRANSF ####[address] [place] [phone] WBC (Leukocytes) 7.14 10*3/uL Normal 3.70-11.[address] [facility] Comment on above: Performed By: #### P T, PTT, AMYL, CMP, LIPA, PHOS ####[place] [phone]#### TRANSF ####[place] [phone] CBC and Differentialon 09-30 Abs Baso <0.03 Normal <0.11 [facility] Comment on above: Performed By: #### P T, PTT, AMYL, CMP, LIPA, PHOS ####[place] [address]#### TRANSF ####[place] [phone] Abs Elmore 0.48 k/uL Normal <0.87 [facility] Comment on above: Performed By: #### P T, PTT, AMYL, CMP, LIPA, PHOS ####[place] [address]#### TRANSF ####[place] [phone] Abs Neut 6.37 k/uL Normal 1.45-7.50 [facility] Comment on above: Performed By: #### P T, PTT, AMYL, CMP, LIPA, PHOS ####[place] [address]#### TRANSF ####[place] [address] Basophils/100 WBC Auto (Bld) 0.0 % Normal [facility] Comment on above: Performed By: #### P T, PTT, AMYL, CMP, LIPA, PHOS ####[place] [address]#### TRANSF ####[place] [phone] DTYPE Auto Diff Normal [facility] Comment on above: Performed By: #### P T, PTT, AMYL, CMP, LIPA, PHOS ####[place] [address]#### TRANSF ####[address] [place] [phone] Eosinophils 10*3/uL Normal <0.46 [facility] Comment on above: Performed By: #### P T, PTT, AMYL, CMP, LIPA, PHOS ####[place] [address]#### TRANSF ####[place] [address] Eosinophils/100 leukocytes 0.0 % Normal [facility] Comment on above: Performed By: #### P T, PTT, AMYL, CMP, LIPA, PHOS ####[place] [address]#### TRANSF ####[place] [address] Erythrocyte distribution width Auto Ratio (RBC) 15.9 % High 11.5-15.0 [facility] Comment on above: Performed By: #### P T, PTT, AMYL, CMP, LIPA, PHOS ####[place] [address]#### TRANSF ####[place] [phone] Erythrocytes (RBC) 3.70 10*6/uL Low 4.20-6.00 [facility] Comment on above: Performed By: #### P T, PTT, AMYL, CMP, LIPA, PHOS ####[place] [address]#### TRANSF ####[place] [address] Hematocrit (HCT) 28.9 % Low 39.0-51.0 [facility] Comment on above: Performed By: #### P T, PTT, AMYL, CMP, LIPA, PHOS ####[place] [address]#### TRANSF ####[place] [phone] Hemoglobin mass conc (Bld) 9.4 g/dL Low 13.0-17.0 [facility] Comment on above: Performed By: #### P T, PTT, AMYL, CMP, LIPA, PHOS ####[place] [address]#### TRANSF ####[place] [phone] Lymphocytes 1.39 10*3/uL Normal 1.00-4.00 [facility] Comment on above: Performed By: #### P T, PTT, AMYL, CMP, LIPA, PHOS ####[place] [address]#### TRANSF ####[place] [address] Lymphocytes/100 leukocytes 16.9 % Normal [facility] Comment on above: Performed By: #### P T, PTT, AMYL, CMP, LIPA, PHOS ####[place] [address]#### TRANSF ####[place] [address] MCH 25.4 pG Low 26.0-34.0 [facility] Comment on above: Performed By: #### P T, PTT, AMYL, CMP, LIPA, PHOS ####[address]#### TRANSF ####[place] [address] MCHC mass conc (RBC) 32.5 g/dL Normal 30.5-36.0 [facility] Comment on above: Performed By: #### P T, PTT, AMYL, CMP, LIPA, PHOS ####[place] [address]#### TRANSF ####[place] [phone] MCV 78.1 fL Low 80.0-100.0 [facility] Comment on above: Performed By: #### P T, PTT, AMYL, CMP, LIPA, PHOS ####[place] [address]#### TRANSF ####[place] [phone] Monocytes/100 leukocytes 5.8 % Normal [facility] Comment on above: Performed By: #### P T, PTT, AMYL, CMP, LIPA, PHOS ####[place] [address]#### TRANSF ####[place] [phone] Neutrophils/100 WBC Auto (Bld) 77.3 % Normal [facility] Comment on above: Performed By: #### P T, PTT, AMYL, CMP, LIPA, PHOS ####[place] [address]#### TRANSF ####[place] [phone] Platelet mean volume (PMV) 9.7 fL Normal 9.0-12.7 [facility] Comment on above: Performed By: #### P T, PTT, AMYL, CMP, LIPA, PHOS ####[place] [address]#### TRANSF ####[place] [phone] Platelets 231 10*3/uL Normal 150-400 [facility] Comment on above: Performed By: #### P T, PTT, AMYL, CMP, LIPA, PHOS ####[place] [address]#### TRANSF ####[place] [phone] WBC (Leukocytes) 8.24 10*3/uL Normal 3.70-11.[address] [facility] Comment on above: Performed By: #### P T, PTT, AMYL, CMP, LIPA, PHOS ####[place] [address]#### TRANSF ####[place] [phone] Comp Metabolic Panelon 09-30 Alanine aminotransferase (ALT) 46 U/L Normal 5-50 [facility] Comment on above: Performed By: #### P T, PTT, AMYL, CMP, LIPA, PHOS ####[place] [address]#### TRANSF ####[place] [phone] Albumin 3.1 g/dL Low 3.5-5.0 [facility] Comment on above: Performed By: #### P T, PTT, AMYL, CMP, LIPA, PHOS ####[address]#### TRANSF ####[place] [phone] Alkaline phosphatase (ALP) 91 U/L Normal 40-150 [facility] Comment on above: Performed By: #### P T, PTT, AMYL, CMP, LIPA, PHOS ####[place] [address]#### TRANSF ####[place] [phone] Anion gap 11 mmol/L Normal 9-18 [facility] Comment on above: Performed By: #### P T, PTT, AMYL, CMP, LIPA, PHOS ####[place] [address]#### TRANSF ####[place] [phone] Aspartate aminotransferase (AST) 48 U/L High 7-40 [facility] Comment on above: Performed By: #### P T, PTT, AMYL, CMP, LIPA, PHOS ####[place] [address]#### TRANSF ####[place] [address] Bilirubin (total) 0.5 mg/dL Normal 0.0-1.5 [facility] Comment on above: Performed By: #### P T, PTT, AMYL, CMP, LIPA, PHOS ####[place] [address]#### TRANSF ####[place] [phone] Calcium 7.8 mg/dL Low 8.5-10.5 [facility] Comment on above: Performed By: #### P T, PTT, AMYL, CMP, LIPA, PHOS ####[place] [address]#### TRANSF ####[place] [address] Chloride 105 mmol/L Normal 98-110 [facility] Comment on above: Performed By: #### P T, PTT, AMYL, CMP, LIPA, PHOS ####[place] [address]#### TRANSF ####[place] [phone] CO2 24 mmol/L Normal 23-32 [facility] Comment on above: Performed By: #### P T, PTT, AMYL, CMP, LIPA, PHOS ####[place] [address]#### TRANSF ####[phone] Creatinine 0.65 mg/dL Low 0.70-1.40 [facility] Comment on above: Performed By: #### P T, PTT, AMYL, CMP, LIPA, PHOS ####[place] [address]#### TRANSF ####[place] [phone] eGFR (non-black) mL/min/{1.73_m2} Normal >60 [facility] Comment on above: Performed By: #### P T, PTT, AMYL, CMP, LIPA, PHOS ####[address]#### TRANSF ####[place] [phone] Glucose mass conc 157 mg/dL High 65-100 [facility] Comment on above: Performed By: #### P T, PTT, AMYL, CMP, LIPA, PHOS ####[place] [address]446[address]#### TRANSF ####[place] [phone] Potassium molar conc 4.9 mmol/L Normal 3.5-5.0 [facility] Comment on above: Performed By: #### P T, PTT, AMYL, CMP, LIPA, PHOS ####[place] [address]#### TRANSF ####[place] [phone] Protein 5.8 g/dL Low 6.0-8.4 [facility] Comment on above: Performed By: #### P T, PTT, AMYL, CMP, LIPA, PHOS ####[place] [address]#### TRANSF ####[place] [phone] Sodium 140 mmol/L Normal 135-146 [facility] Comment on above: Performed By: #### P T, PTT, AMYL, CMP, LIPA, PHOS ####[place] [address]#### TRANSF ####[place] [address] Urea nitrogen 18 mg/dL Normal 10-25 [facility] Comment on above: Performed By: #### P T, PTT, AMYL, CMP, LIPA, PHOS ####[place] [address]#### TRANSF ####[place] [phone] Fibrinogenon 09-30-2017 Fibrinogen 257 mg/dL Normal 200-400 [facility] Comment on above: Performed By: #### P T, PTT, AMYL, CMP, LIPA, PHOS ####[place] [address]#### TRANSF ####[place] [phone] Lactateon 09-30-2017 Lactate 2.3 mmol/L High 0.4-2.0 [facility] Comment on above: Performed By: #### P T, PTT, AMYL, CMP, LIPA, PHOS ####[place] [address]#### TRANSF ####[place] [phone] NURSING PROGon 09-30-2017 NURSING PROG HNO ID: [id number] thor: Sandrita KenRn) Clayton Gureraice: (none)Author Type: Registered NurseType: Nursing Progress NoteFiled: 09/30/2017 4:15 PMNote Text: Nursing Progress NotePatient Name: Rocio Boudreaux: [id number] Location: /[id number]-[id number]-67 ____Daily Note:1043- family updated via pager [id number]- family updated vis pager [id number]- family updated via pager [id number]- family updated via pager [id number]- family updated via pager [id number] Family update via pager [id number] family notified of closure start time. Requested family to return Rajat waiting roomThis note was completed by: Sandrita Guerra RN [facility] NURSING PROG HNO ID: [id number] thor: Kevin KenRn) Clayton Beltranice: (none)Author Type: Registered NurseType: Nursing Progress NoteFiled: 09/30/2017 9:46 AMNote Text: Nursing Progress NotePatient Name: Rocio HayesN: [id number] Location: ____ Patient's family updated at 9:44 AM about status of procedure per MD Ainsley.This note was completed by: Kevin Beltran RN [facility] NURSING PROG HNO ID: [id number] thor: Mirian KenRn) MOUSTAPHA Albrechtervice: NursingAuthor Type: [...] degree and side rails up X2. Normal [facility] OPERATIVE NOon 09-30-2017 OPERATIVE NO HNO ID: [id number] thor: Michael () KrishnainService: General SurgeryAuthor Type: PhysicianType: Operative ReportFiled: 10/05/2017 7:03 PMNote Text:[facility] - Operative ReportFRISCH, DEANDOB: 1955 AGE: 62 SEX: MMRN: [id number] ACCTNUM: [id number] SVC: INT LOCATION: [id number] PHYSICIAN: Michael Jolley, MDDATE OF PROCEDURE: 09/30/2017PREOPERATIVE [...] pleasant 62-year-old male who was initiallyadmitted to [facility] with intraabdominal abscesses afterhaving undergone a cholecystectomy on hind site. 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 He at the time of that admission [...] time and the end time.GAEL Lomeliept Of SurgeryTA:[id number]:02/2018jhD: 10/02/2017 17:34:33T: 10/03/2017 03:14:36Job #: [id number] [facility] PROCEDUREon 09-30-2017 PROCEDURE HNO ID: [id number] thor: Yrn Cedillo) Trishe: Pain ManagementAuthor Type: [...] 30, 2017 : 10:40 AM PAGER/CONTACT #: [phone] [facility] PT EDon 09-30-2017 PT ED HNO ID: [id number] thor: Celina (Rn) MOUSTAPHA Wagnerervice: NursingAuthor Type: Registered NurseType: Patient EducationFiled: 09/30/2017 8:51 AMNote Text:PATIENT EDUCATION TOPIC: PROCEDURE / SURGERY: Pre-op Teaching: SurgicalSafety PrinciplesPATIENT NAME: Rocio JacksonMRN: [id number] LOCATION: [place] [address]/[id number] S TO LEARNCOGNITIVE ABILITY: Alert and orientedMOTIVATION TO LEARN: EagerFAMILY SUPPORT: High - Very involved in pt careINSTRUCTION PROVIDED TO: Patient and family memberPATIENT LEARNS BEST BY: Individual InstructionFACTORS AFFECTING LEARNING: NonePHYSICAL LIMITATIONS AFFECTING LEARNING: Other Limitations MEMORY LOSSLEARNING RESPONSEDIAGNOSIS: ADULT: WHIPPLEPATIENT/FAMILY RESPONSE: Verbalizes understanding of: [id number] rrect action to take to follow pre-operative instructionsMETHOD OF INSTRUCTION: Individual instructionFOLLOW-UP PLAN: Complete - No need for follow-upINSTRUCTIONAL AIDS USED: NASUPPLEMENTAL MATERIAL PROVIDED TO PATIENT: NoneREFERRAL (RECOMMENDATION): NoneElectronically Signed By: Celina Wagner RN Normal [facility] Protimeon 09-30-2017 INR Coag RelTime (Bld) 1.2 {INR} Normal 0.9-1.3 [facility] Comment on above: Result Comment: Tayler min K Antagonist (VKA) Therapeutic Range: INR 2 to 3 (Target INR of 2.5)Note: For patients treated with VKA drugs, such as warfarin, the [employer] 2012 Guideline recommends [...] P T, PTT, AMYL, CMP, LIPA, PHOS ####[address] [phone]#### TRANSF ####[address] [phone] PT Sec 12.2 sec Normal 9.7-13.0 [facility] Comment on above: Performed By: #### P T, PTT, AMYL, CMP, LIPA, PHOS ####[address] [phone]#### TRANSF ####[address] [phone] SURGICAL PATHOLOGYon 018 SURGICAL PATHOLOGY [facility]: [id number] Physician: MICHAEL JOLLEY MD FINAL DIAGNOSIS1. Duodenal [...] for malignancy. (Dr. Parker)Intraoperative diagnosis performed at [facility], [address] [place] [address] GROSS DESCRIPTIONA. Received fresh for frozen section [...] cmin greatest dimension. A photograph is taken. [employer] sections aresubmitted as follows: D1 perpendicular proximal duodenal margin, [id number] distal duodenal margin, D3 pancreatic neck shave [...] minimally attached fibrofatty tissuewhich is grossly unremarkable. [employer] sections are submitted asfollows: E1 perpendicular margins, [...] 0.7 cm.Sectioning does not reveal any masses. [employer]st sections aresubmitted as follows: G1 perpendicular proximal margin, G2 perpendiculardistal margin, G3 pylorus, G4 shave margin mucosal covered tissue withstaple line. BF/glw 10/01/2017 Gross examination performed at [facility], [address] [place] [address] of Report: 10/13/2017Date of Procedure: 09/30/2017Date of Receipt: 09/30/2017Submitted by: MICHAEL JOLLEY MDLocation: [id number] interpretation performed at [facility], [address] [facility] [address]. Normal [facility] Comment on above: Performed By: #### P T, PTT, AMYL, CMP, LIPA, PHOS ####[facility] [phone]#### TRANSF ####[place] [address] [place], [place] [phone] Wound Culture/Stainon 2017 Wound Culture/Stain Smear Result [...] <=2 FVancomycin SUSCEPTIBLE 1 F Critically abnormal [facility] Comment on above: Performed By: #### P T, PTT, AMYL, CMP, LIPA, PHOS ####[facility] [place] [phone]#### TRANSF ####[place] [address] [place], [place] [phone] NURSING PROGon 09-25-2017 NURSING PROG HNO ID: [id number] thor: Zaira (RnLyric Vital, RNService: NeurosurgeryAuthor Type: Registered NurseType: Nursing Progress NoteFiled: 09/29/2017 4:23 PMNote Text:PACC Nurse Progress NoteHistory AND Physical:PACC Visit Date: 9-05-47Rldojczz HANDP Date: N/AED visit Date: N/AOutside HANDP [...] expected for cardiac optimization by Gerald Freeman, RNOhiohealth Berger Hospital 2017 8:38 AMADDEND:Cardiac Optimization: Dr. Abreu, letter scanned in [facility] 09-29-17.Chart Check:Zackary Beverly 2017 3:05 PM [facility] 09-24-2017 ALLIED HEALTH HNO ID: [id number] thor: Jennifer Win CtService: (none)Author Type: (none)Type: Allied HealthFiled: 09/24/2017 10:49 AMNote Text: Radiology Service Progress NotePATIENT NAME: Rocio Boudreaux: [id number] OF SERVICE: September 24, 2017TIME: 10:48 AMPATIENT IDENTITY VERIFICATION COMPLETED USING TWO (2) METHODS: Patientconfirmed name verbally and ID band matches..PATIENT GENDER DATA: MalePATIENT RELEVANT IMPLANT DATA REVIEWED: Not ApplicableRADIOLOGY DEPARTMENT: CT; Exam(s) Completed: Pancreas and PelvisPERIPHERAL IV DATA: Site assessment: Clean,Dry and Intact, Sitedisposition DiscontinuedSIGNED BY: Jennifer Win CtOhiohealth Berger Hospital 2017 10:48 AM [facility] APTTon 09-24-2017 aPTT 24.9 s Normal 23.0-32.4 [facility] Comment on above: Result [...] laboratory APTT reagent in use throughout the [facility]. Performed By: #### P T, PTT, AMYL, CMP, LIPA, PHOS ####[place] [address]#### TRANSF ####[place] [phone] CA 19-9on 09-24-2017 CA 19-9 15 U/mL Normal <36 [facility] Comment on above: Result Comment: Test analyzed by the SaaSMAX DxI method. Performed By: #### P T, PTT, AMYL, CMP, LIPA, PHOS ####[place] [address]#### TRANSF ####[place] [phone] CBC and Differentialon 09-24 Abs Baso <0.03 Normal <0.11 [facility] Comment on above: Performed By: #### P T, PTT, AMYL, CMP, LIPA, PHOS ####[place] [address]40446[address]#### TRANSF ####[place] [phone] Abs Elmore 0.57 k/uL Normal <0.87 [facility] Comment on above: Performed By: #### P T, PTT, AMYL, CMP, LIPA, PHOS ####[place] [address]446[address]#### TRANSF ####[place] [address] [place] [phone] Abs Neut 3.92 k/uL Normal 1.45-7.50 [facility] Comment on above: Performed By: #### P T, PTT, AMYL, CMP, LIPA, PHOS ####[place] [address]#### TRANSF ####[place] [address] [place] [phone] Basophils/100 WBC Auto (Bld) 0.3 % Normal [facility] Comment on above: Performed By: #### P T, PTT, AMYL, CMP, LIPA, PHOS ####[place] [address]#### TRANSF ####[place] [phone] DTYPE Auto Diff Normal [facility] Comment on above: Performed By: #### P T, PTT, AMYL, CMP, LIPA, PHOS ####[place] [address]#### TRANSF ####[place] [address] Eosinophils 0.34 10*3/uL Normal <0.46 [facility] Comment on above: Performed By: #### P T, PTT, AMYL, CMP, LIPA, PHOS ####[place] [address]#### TRANSF ####[place] [address] Eosinophils/100 leukocytes 4.5 % Normal [facility] Comment on above: Performed By: #### P T, PTT, AMYL, CMP, LIPA, PHOS ####[place] [address]#### TRANSF ####[place] [address] Erythrocyte distribution width Auto Ratio (RBC) 16.2 % High 11.5-15.0 [facility] Comment on above: Performed By: #### P T, PTT, AMYL, CMP, LIPA, PHOS ####[place] [address]#### TRANSF ####[place] [phone] Erythrocytes (RBC) 10*6/uL Normal <0.[address] [facility] Comment on above: Performed By: #### P T, PTT, AMYL, CMP, LIPA, PHOS ####[place] [address]#### TRANSF ####[place] [address] Erythrocytes (RBC) 3.62 10*6/uL Low 4.20-6.00 [facility] Comment on above: Performed By: #### P T, PTT, AMYL, CMP, LIPA, PHOS ####[place] [address]#### TRANSF ####[place] [address] Erythrocytes (RBC) 0.0 /100 WBC Normal 0 [facility] Comment on above: Performed By: #### P T, PTT, AMYL, CMP, LIPA, PHOS ####[place] [address]#### TRANSF ####[place] [address] Hematocrit (HCT) 29.1 % Low 39.0-51.0 [facility] Comment on above: Performed By: #### P T, PTT, AMYL, CMP, LIPA, PHOS ####[place] [address]#### TRANSF ####[phone] Hemoglobin mass conc (Bld) 8.6 g/dL Low 13.0-17.0 [facility] Comment on above: Performed By: #### P T, PTT, AMYL, CMP, LIPA, PHOS ####[place] [address]#### TRANSF ####[place] [phone] Lymphocytes 2.62 10*3/uL Normal 1.00-4.00 [facility] Comment on above: Performed By: #### P T, PTT, AMYL, CMP, LIPA, PHOS ####[place] [address]#### TRANSF ####[place] [address] Lymphocytes/100 leukocytes 35.0 % Normal [facility] Comment on above: Performed By: #### P T, PTT, AMYL, CMP, LIPA, PHOS ####[address]#### TRANSF ####[place] [address] MCH 23.8 pG Low 26.0-34.0 [facility] Comment on above: Performed By: #### P T, PTT, AMYL, CMP, LIPA, PHOS ####[address]#### TRANSF ####[place] [phone] MCHC mass conc (RBC) 29.6 g/dL Low 30.5-36.0 [facility] Comment on above: Performed By: #### P T, PTT, AMYL, CMP, LIPA, PHOS ####[place] [address]#### TRANSF ####[place] [phone] MCV 80.4 fL Normal 80.0-100.0 [facility] Comment on above: Performed By: #### P T, PTT, AMYL, CMP, LIPA, PHOS ####[place] [address]#### TRANSF ####[place] [address] Monocytes/100 leukocytes 7.6 % Normal [facility] Comment on above: Performed By: #### P T, PTT, AMYL, CMP, LIPA, PHOS ####[place] [address]#### TRANSF ####[place] [address] Neutrophils/100 WBC Auto (Bld) 52.6 % Normal [facility] Comment on above: Performed By: #### P T, PTT, AMYL, CMP, LIPA, PHOS ####[place] [address]#### TRANSF ####[phone] Platelet mean volume (PMV) 10.9 fL Normal 9.0-12.7 [facility] Comment on above: Performed By: #### P T, PTT, AMYL, CMP, LIPA, PHOS ####[place] [address]#### TRANSF ####[place] [phone] Platelets 354 10*3/uL Normal 150-400 [facility] Comment on above: Performed By: #### P T, PTT, AMYL, CMP, LIPA, PHOS ####[place] [phone]#### TRANSF ####[address] [phone] WBC (Leukocytes) 7.49 10*3/uL Normal 3.70-11.[address] [facility] Comment on above: Performed By: #### P T, PTT, AMYL, CMP, LIPA, PHOS ####[place] [phone]#### TRANSF ####[place] [phone] CEAon 09-24-2017 CEA 0.7 ng/mL Normal 0.0-2.9 [facility] Comment on above: Result Comment: Test analyzed by the SaaSMAX DxI method. Performed By: #### P T, PTT, AMYL, CMP, LIPA, PHOS ####[place] [phone]#### TRANSF ####[address] [phone] CT PANCREAS/PELVIS W IVCONon 09-24-2017 CT PANCREAS/PELVIS [...] JUAREZ MD on Sep 25 2017 9:02AM [id number] Normal [facility] Comp Metabolic Panelon 09-24 Alanine aminotransferase (ALT) 38 U/L Normal 5-50 [facility] Comment on above: Performed By: #### P T, PTT, AMYL, CMP, LIPA, PHOS ####[facility] [place], [place] [phone]#### TRANSF ####[place] [phone] Albumin 3.7 g/dL Normal 3.5-5.0 [facility] Comment on above: Performed By: #### P T, PTT, AMYL, CMP, LIPA, PHOS ####[place] [address]#### TRANSF ####[place] [phone] Alkaline phosphatase (ALP) 160 U/L High 40-150 [facility] Comment on above: Performed By: #### P T, PTT, AMYL, CMP, LIPA, PHOS ####[place] [address]#### TRANSF ####[place] [address] Anion gap 12 mmol/L Normal 9-18 [facility] Comment on above: Performed By: #### P T, PTT, AMYL, CMP, LIPA, PHOS ####[place] [address]#### TRANSF ####[place] [address] Aspartate aminotransferase (AST) 37 U/L Normal 7-40 [facility] Comment on above: Performed By: #### P T, PTT, AMYL, CMP, LIPA, PHOS ####[place] [address]#### TRANSF ####[place] [address] Bilirubin (total) 0.3 mg/dL Normal 0.0-1.5 [facility] Comment on above: Performed By: #### P T, PTT, AMYL, CMP, LIPA, PHOS ####[phone]#### TRANSF ####[place] [phone] Calcium 9.7 mg/dL Normal 8.5-10.5 [facility] [place] Comment on above: Performed By: #### P T, PTT, AMYL, CMP, LIPA, PHOS ####[place] [address]#### TRANSF ####[place] [phone] Chloride 98 mmol/L Normal 98-110 [facility] [place] Comment on above: Performed By: #### P T, PTT, AMYL, CMP, LIPA, PHOS ####[place] [address]#### TRANSF ####[place] [phone] CO2 28 mmol/L Normal 23-32 [facility] [place] Comment on above: Performed By: #### P T, PTT, AMYL, CMP, LIPA, PHOS ####[place] [address]#### TRANSF ####[place] [phone] Creatinine 0.68 mg/dL Low 0.70-1.40 [facility] [place] Comment on above: Performed By: #### P T, PTT, AMYL, CMP, LIPA, PHOS ####[place] [address]#### TRANSF ####[place] [address] eGFR (non-black) mL/min/{1.73_m2} Normal >60 [facility] Comment on above: Performed By: #### P T, PTT, AMYL, CMP, LIPA, PHOS ####[place] [address]#### TRANSF ####[place] [phone] Glucose mass conc 110 mg/dL High 65-100 [facility] Comment on above: Performed By: #### P T, PTT, AMYL, CMP, LIPA, PHOS ####[place] [address]#### TRANSF ####[place] [phone] Potassium molar conc 4.7 mmol/L Normal 3.5-5.0 [facility] Comment on above: Performed By: #### P T, PTT, AMYL, CMP, LIPA, PHOS ####[place] [address]#### TRANSF ####[place] [phone] Protein 7.8 g/dL Normal 6.0-8.4 [facility] [place] Comment on above: Performed By: #### P T, PTT, AMYL, CMP, LIPA, PHOS ####[place] [address]#### TRANSF ####[place] [address] Sodium 138 mmol/L Normal 135-146 [facility] [place] Comment on above: Performed By: #### P T, PTT, AMYL, CMP, LIPA, PHOS ####[place] [address]#### TRANSF ####[place] [id number] Urea nitrogen 13 mg/dL Normal 10-25 [facility] [place] Comment on above: Performed By: #### P T, PTT, AMYL, CMP, LIPA, PHOS ####[place] [phone]#### TRANSF ####[facility] [address] [place], [place] [phone] NURSING PROGon 09-24-2017 NURSING PROG HNO ID: [id number] thor: Nayeli Humphries (Rn) MOUSTAPHA Pelletierervice: RadiologyAuthor Type: Registered NurseType: Nursing Progress NoteFiled: 09/24/2017 10:26 AMNote Text: Radiology Service Progress NotePATIENT NAME: Rocio Boudreaux: [id number] OF SERVICE: September 24, 2017TIME: 10:25 AMPATIENT WEIGHT: 184 LBSPATIENT IDENTITY VERIFICATION COMPLETED USING TWO (2) METHODS: Patientconfirmed name verbally and Date of .PATIENT GENDER DATA: MaleCONTRAST INDUCED NEPHROPATHY RISK FACTORS: Patient age > 60 years,Diabetic: Yes. Current medication(s): Metformin. Patient currently hasinsulin pump?: No. and Home going recommendation given YesCREATININE:CreatinineDate Value Ref Range Mnqwoe1109/01/2017 0.54 (L) 0.70 - 1.40 mg/dL Final08/31/2017 0.56 (L) 0.70 - 1.40 mg/dL Final08/30/2017 0.59 (L) 0.70 - 1.40 mg/dL Final eGFR-All Other RacesDate Value Ref Range Ecfnpc5809/01/2017 >60 >60 . Final eGFR- AmericanDate Value Ref Range Wnlsvd7409/01/2017 >60 >60 Final P.O.C.T. RESULTS: N/A September 24, 2017TREATMENT: No Hydration needed.ALLERGIES: Reviewed and unchangedCONTRAST ALLERGY: NO.IV SITE: Ambulatory: A peripheral IV was started in the Right forearmwith a diffusic cath: 20 gauge. A Saline lock was inserted per protocol.IV SITE APPEARANCE: Clean,Dry and IntactSIGNED BY: Nayeli Pelletier RNOhiohealth Berger Hospital 2017 10:25 AM Normal [facility] [place] Protimeon 09-24-2017 INR Coag RelTime (Bld) 1.1 {INR} Normal 0.9-1.3 [facility] [place] Comment on above: Result Comment: Tayler min K Antagonist (VKA) Therapeutic Range: INR 2 to 3 (Target INR of 2.5)Note: For patients treated with VKA drugs, such as warfarin, the [place] [employer] 2012 Guideline recommends [...] al. Chest 2012, 141:7S-47SFelice CENTENO, et al. [facility] 2017, 70: 252-289 Performed By: #### P T, PTT, AMYL, CMP, LIPA, PHOS ####[place] [phone]#### TRANSF ####[phone] PT Sec 11.1 sec Normal 9.7-13.0 [facility] [place] Comment on above: Performed By: #### P T, PTT, AMYL, CMP, LIPA, PHOS ####[place] [phone]#### TRANSF ####[place] [phone] Type and SCR (30D)on 018 ABO/RH(D) Positive Normal [facility] [place] Comment on above: Performed By: #### P T, PTT, AMYL, CMP, LIPA, PHOS ####[place] [phone]#### TRANSF ####[place] [phone] Antibody Screen Negative Normal [facility] [place] Comment on above: Performed By: #### P T, PTT, AMYL, CMP, LIPA, PHOS ####[facility] [place] [place], [place] [phone]#### TRANSF ####[facility] [address] [place], [place] [phone] HOSPon 09-16-2017 HOSP Patient:Jason Jackson RN: Height:5' [...] 29.1 % 09/24/2017 51.0 39.0Progress Notes ([facility] [address]):Michael Jolley MD 09/27/2017 12:29 PM SignedSURGERY PREOPERATIVE VISIT NOTEName: Rocio JacksonMedical Record: [id number] No.: [id number] Frisch is a 62 year old male [...] Date- ANGIOPLASTY HX 05/15/2011 2 stents s/p [place];[facility]- CHOLECYSTECTOMY 08/11/2017 [facility]- PICC LINE INSERT/CONSULT 08/16/2017SOCIAL HISTORY:Social HistorySubstance Use [...] Patient understands risk of medical complicationsincluding pneumonia, [place], UTI and . Patient expressed understanding andconsented to the surgery.The patient had an opportunity to ask additional questions that were answered.The patient expressed that they understood.A consent form was signed today.Prescriptions were explained and provided to the patient.Magalys Alvarez RNPrevious VersionProgress Notes ([facility]):Magalys Alvarez RN 09/23/2017 5:01 PM SignedPatient is scheduled for [place] on 09/30/[address] Jolley.09/16/2017 Cardiac Clearance request faxed to patient wood gluer for riskstratification and recommendations for Eliquis and AsaCall to office today to check status of request. Nurse unavailable. Awaitingreturn call from nurse.Dr. Irving Rock [address] [id number] fx Magalys Alvarez RN 09/24/2017 1:48 PM SignedReceived return call from [facility].Patient is pending a stress test on 09/28/2017. Dr. Abreu's office will sendcardiac stratification letter after testing completed.Per Dr. Jolley, patient is to hold Eliquis and Asa (last dose 09/23/2017). Normal [facility] [place] CASE MANAGEMon 09-01-2017 CASE MANAGEM HNO ID: [id number] thor: Alexandrea (Rn) Thom, RNService: Care ManagementAuthor Type: Registered NurseType: Care Mgt Progress NoteFiled: 09/01/2017 11:42 AMNote Text:CARE MANAGEMENT DISCHARGE NOTESERVICE DATE: 09/01/2017SERVICE TIME: 11:02 AM LOS: 19 daysAdmission Date: 08/13/2017DISCHARGE ARRANGEMENT (list agency and phone number)[facility] facilityProvider[facility] [id number] ASSESSMENT:Caregiver is ready, willing and able to meet the patient's needs asrecommended by the inter-professional team? YesPatient's transition needs and plan for meeting these needs: SNFDoes the patient have an acute stroke diagnosis, or has the patient had astroke during this admission? NoHANDOFF COMMUNICATION:SNFTRANSPORTAT ION ARRANGEMENTS:Car Sisters will drive pt to the SNFADDITIONAL CONTACT RESOURCES: nonePlan is for [facility] [place].The pt and his sisters have verbalized agreement with this plan.SIGNATURE: Alexanrdea Tomas RN PATIENT NAME: Rocio VizcarraTE: September 01, 2017 : 11:02 AM PAGER/CONTACT #: [phone] Normal [facility] [place] CBC and Differentialon 09-01 Abs Baso <0.03 Normal <0.11 [facility] [place] Comment on above: Performed By: #### P T, PTT, AMYL, CMP, LIPA, PHOS ####[phone]#### TRANSF ####[place] [phone] Abs Elmore 0.44 k/uL Normal <0.87 [facility] [place] Comment on above: Performed By: #### P T, PTT, AMYL, CMP, LIPA, PHOS ####[place] [phone]#### TRANSF ####[place] [phone] Abs Neut 2.43 k/uL Normal 1.45-7.50 [facility] [place] Comment on above: Performed By: #### P T, PTT, AMYL, CMP, LIPA, PHOS ####[place] [address]#### TRANSF ####[address] [place] [phone] Basophils/100 WBC Auto (Bld) 0.4 % Normal [facility] [place] Comment on above: Performed By: #### P T, PTT, AMYL, CMP, LIPA, PHOS ####[place] [address]#### TRANSF ####[place] [phone] DTYPE Auto Diff Normal [facility] [place] Comment on above: Performed By: #### P T, PTT, AMYL, CMP, LIPA, PHOS ####[place] [address]#### TRANSF ####[place] [address] Eosinophils 0.26 10*3/uL Normal <0.46 [facility] [place] Comment on above: Performed By: #### P T, PTT, AMYL, CMP, LIPA, PHOS ####[place] [address]#### TRANSF ####[place] [address] Eosinophils/100 leukocytes 5.3 % Normal [facility] [place] Comment on above: Performed By: #### P T, PTT, AMYL, CMP, LIPA, PHOS ####[place] [address]#### TRANSF ####[place] [address] Erythrocyte distribution width Auto Ratio (RBC) 15.3 % High 11.5-15.0 [facility] [place] Comment on above: Performed By: #### P T, PTT, AMYL, CMP, LIPA, PHOS ####[place] [address]#### TRANSF ####[place] [phone] Erythrocytes (RBC) 2.93 10*6/uL Low 4.20-6.00 [facility] Comment on above: Performed By: #### P T, PTT, AMYL, CMP, LIPA, PHOS ####[place] [address]#### TRANSF ####[place] [phone] Hematocrit (HCT) 25.0 % Low 39.0-51.0 [facility] [place] Comment on above: Performed By: #### P T, PTT, AMYL, CMP, LIPA, PHOS ####[place] [address]#### TRANSF ####[place] [phone] Hemoglobin mass conc (Bld) 7.9 g/dL Low 13.0-17.0 [facility] [place] Comment on above: Performed By: #### P T, PTT, AMYL, CMP, LIPA, PHOS ####[place] [address]#### TRANSF ####[place] [phone] Lymphocytes 1.72 10*3/uL Normal 1.00-4.00 [facility] [place] Comment on above: Performed By: #### P T, PTT, AMYL, CMP, LIPA, PHOS ####[place] [address]#### TRANSF ####[place] [address] Lymphocytes/100 leukocytes 35.3 % Normal [facility] [place] Comment on above: Performed By: #### P T, PTT, AMYL, CMP, LIPA, PHOS ####[place] [address]#### TRANSF ####[phone] MCH 27.0 pG Normal 26.0-34.0 [facility] [place] Comment on above: Performed By: #### P T, PTT, AMYL, CMP, LIPA, PHOS ####[address]#### TRANSF ####[place] [phone] MCHC mass conc (RBC) 31.6 g/dL Normal 30.5-36.0 [facility] Comment on above: Performed By: #### P T, PTT, AMYL, CMP, LIPA, PHOS ####[place] [address]#### TRANSF ####[phone] MCV 85.3 fL Normal 80.0-100.0 [facility] [place] Comment on above: Performed By: #### P T, PTT, AMYL, CMP, LIPA, PHOS ####[place] [address]#### TRANSF ####[phone] Monocytes/100 leukocytes 9.0 % Normal [facility] [place] Comment on above: Performed By: #### P T, PTT, AMYL, CMP, LIPA, PHOS ####[place] [address]#### TRANSF ####[phone] Neutrophils/100 WBC Auto (Bld) 50.0 % Normal [facility] [place] Comment on above: Performed By: #### P T, PTT, AMYL, CMP, LIPA, PHOS ####[place] [address]#### TRANSF ####[place] [phone] Platelet mean volume (PMV) 9.7 fL Normal 9.0-12.7 [facility] [place] Comment on above: Performed By: #### P T, PTT, AMYL, CMP, LIPA, PHOS ####[place] [address]#### TRANSF ####[place] [phone] Platelets 495 10*3/uL High 150-400 [facility] [place] Comment on above: Performed By: #### P T, PTT, AMYL, CMP, LIPA, PHOS ####[address]#### TRANSF ####[place] [phone] WBC (Leukocytes) 4.87 10*3/uL Normal 3.70-11.[address] [facility] Comment on above: Performed By: #### P T, PTT, AMYL, CMP, LIPA, PHOS ####[place] [address]#### TRANSF ####[place] [phone] CNDSon 09-01-2017 CNDS HNO ID: [id number] thor: Allegra Garcia) MiglionicoService: ColorectalAuthor Type: Physician AssistantType: Discharge SummariesFiled: 09/02/2017 11:51 AMNote Text:DISCHARGE SUMMARYPATIENT NAME: Rocio Jackson ADMISSION DATE: 08/13/2017MRN: [id number] DISCHARGE DATE: 09/01/2017ATTENDING PHYSICIAN: Michael Cedillo) Moiz [...] Cardiology, GastroenterologyPATIENT CONDITION AT DISCHARGE: StableDISCHARGE DISPOSITION: Retirement FacilityINFORMATION PROVIDED TO PATIENT:Instructions for My Care at Home or Healthcare FacilityThese instructions explain what you or your day care assistant need to do tocontinue your care at home or at another healthcare facility? Please go over these instructions with your nurse and day care assistant.? If you are not sure about something, [...] 02, 2017 : 11:13 AM PAGER/CONTACT #: [phone] [facility] CONSULT PROGon 09-01-2017 CONSULT PROG HNO ID: [id number] thor: Jessee Lottervice: Cardiovascular DiseaseAuthor Type: PhysicianType: [...] for for bleeding issuesadvise f/u with primary wood gluer as out ptAll questions answered.Subjective:Doing well no [...] Date- ANGIOPLASTY HX 05/15/2011 2 stents s/p [place];[facility]- CHOLECYSTECTOMY 08/11/2017 [facility]- PICC LINE INSERT/CONSULT 08/16/2017Prior to Admission Medications:No [...] acting) (HumaLOG) SUBCUTANEOUS w MEALSAND HSphenol 1 [place] (CHLORASEPTIC) 1 [place] MUCOUS MEMBRANE (TOPICAL MOUTH ANDTHROAT) q 2 [...] Date: September 01, 2017Time: 10:00 AM Normal [facility] [place] Comp Metabolic Panelon 09-01 Alanine aminotransferase (ALT) 74 U/L High 5-50 [facility] [place] Comment on above: Performed By: #### P T, PTT, AMYL, CMP, LIPA, PHOS ####[place] [address]#### TRANSF ####[place] [phone] Albumin 2.9 g/dL Low 3.5-5.0 [facility] [place] Comment on above: Performed By: #### P T, PTT, AMYL, CMP, LIPA, PHOS ####[place] [address]#### TRANSF ####[place] [phone] Alkaline phosphatase (ALP) 490 U/L High 40-150 [facility] [place] Comment on above: Performed By: #### P T, PTT, AMYL, CMP, LIPA, PHOS ####[place] [address]#### TRANSF ####[place] [phone] Anion gap 7 mmol/L Low 9-18 [facility] [place] Comment on above: Performed By: #### P T, PTT, AMYL, CMP, LIPA, PHOS ####[place] [address]#### TRANSF ####[place] [phone] Aspartate aminotransferase (AST) 93 U/L High 7-40 [facility] [place] Comment on above: Performed By: #### P T, PTT, AMYL, CMP, LIPA, PHOS ####[place] [address]#### TRANSF ####[place] [phone] Bilirubin (total) 0.4 mg/dL Normal 0.0-1.5 [facility] Comment on above: Performed By: #### P T, PTT, AMYL, CMP, LIPA, PHOS ####[place] [address]#### TRANSF ####[place] [phone] Calcium 8.0 mg/dL Low 8.5-10.5 [facility] [place] Comment on above: Performed By: #### P T, PTT, AMYL, CMP, LIPA, PHOS ####[place] [address]#### TRANSF ####[place] [phone] Chloride 101 mmol/L Normal 98-110 [facility] [place] Comment on above: Performed By: #### P T, PTT, AMYL, CMP, LIPA, PHOS ####[place] [address]#### TRANSF ####[place] [phone] CO2 29 mmol/L Normal 23-32 [facility] [place] Comment on above: Performed By: #### P T, PTT, AMYL, CMP, LIPA, PHOS ####[place] [address]#### TRANSF ####[place] [phone] Creatinine 0.54 mg/dL Low 0.70-1.40 [facility] [place] Comment on above: Performed By: #### P T, PTT, AMYL, CMP, LIPA, PHOS ####[address]#### TRANSF ####[place] [address] eGFR (non-black) mL/min/{1.73_m2} Normal >60 [facility] Comment on above: Performed By: #### P T, PTT, AMYL, CMP, LIPA, PHOS ####[place] [address]#### TRANSF ####[place] [phone] Glucose mass conc 149 mg/dL High 65-100 [facility] Comment on above: Performed By: #### P T, PTT, AMYL, CMP, LIPA, PHOS ####[place] [address]#### TRANSF ####[place] [address] Potassium molar conc 4.3 mmol/L Normal 3.5-5.0 [facility] Comment on above: Performed By: #### P T, PTT, AMYL, CMP, LIPA, PHOS ####[place] [address]#### TRANSF ####[place] [address] Protein 6.6 g/dL Normal 6.0-8.4 [facility] [place] Comment on above: Performed By: #### P T, PTT, AMYL, CMP, LIPA, PHOS ####[place] [address]#### TRANSF ####[place] [address] Sodium 137 mmol/L Normal 135-146 [facility] [place] Comment on above: Performed By: #### P T, PTT, AMYL, CMP, LIPA, PHOS ####[place] [address]#### TRANSF ####[place] [phone] Urea nitrogen 11 mg/dL Normal 10-25 [facility] [place] Comment on above: Performed By: #### P T, PTT, AMYL, CMP, LIPA, PHOS ####[place] [address]#### TRANSF ####[place] [phone] Magnesiumon 09-01-2017 Magnesium 2.3 mg/dL Normal 1.7-2.6 [facility] [place] Comment on above: Performed By: #### P T, PTT, AMYL, CMP, LIPA, PHOS ####[place] [address]#### TRANSF ####[place] [phone] NURSING PROGon 09-01-2017 NURSING PROG HNO ID: [id number] thor: Sabrina (Rn) Ever, RNService: (none)Author Type: Registered NurseType: Nursing Progress NoteFiled: 09/01/2017 11:54 AMNote Text: Nursing Progress NotePatient Name: Rocio TorresdonnyMRN: [id number] Location: [place] [address]/[id number] ____Daily Note:1153- Surgery López fisher in room PK336. Went to flush biliary drainand large amount of output started draining from site. Also does patientneed phosphate prior to d/c? Thanks! -mary ellen #[id number] Awaiting further orders.This note was completed by: Sabrina Curtis RN [facility] PLAN OF CAREon 09-01-2017 PLAN OF CARE HNO ID: [id number] thor: Miriam Britt ([employer])Service: (none)Author Type: TechnicianType: Plan of CareFiled: 09/02/2017 12:34 PMNote 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 Patient to use [facility] Bedside Delivery - N/A2. If fax, patient would like us to fax prescriptions to [facility]. Pharmacy: b. Location: c. Phone:3. Insurance card on file - N/A4. Credit card for payment - N/A [facility] PROGRESSon 09-01-2017 PROGRESS HNO ID: [id number] thor: Kayleen (Res) BenliceService: General SurgeryAuthor Type: ResidentType: Progress NotesFiled: 09/01/2017 7:46 AMNote Text:PROGRESS NOTES - SURGICAL SERVICESPATIENT NAME: Rocio JacksonMRN: [id number] HISTORY OF PRESENT ILLNESS:Resting well. No acute [...] PICC line prior to discharge-DC today, [facility] or to SNFSIGNATURE: Kayleen Gonzales MDDATE: September 01, 2017TIME: 7:46 AM Normal [facility] [place] Phosphoruson 09-01-2017 Phosphate 2.0 mg/dL Low 2.5-4.5 [facility] [place] Comment on above: Performed By: #### P T, PTT, AMYL, CMP, LIPA, PHOS ####[facility] [place] [place], [place] [phone]#### TRANSF ####[facility] [place], [place] [phone] ALLIED HEALTHon 08-31-2017 ALLIED HEALTH HNO ID: [id number] thor: Lauren KenDairy Clerk) Osvaldovice: Spiritual CareAuthor Type: ChaplainType: Allied HealthFiled: 08/31/2017 11:01 AMNote Text:SPIRITUAL CARE PROGRESS NOTESERVICE DATE: 08/31/2017SERVICE TIME: 10:15 [facility] provided spiritual care visit with patient per request forSpiritual Care consultation. Patient was present in the room with 2family members. I provided active listening and introduction of ourservices as needed.Patient was introduced to the resources offered through Spiritual Care andHealing Services, and informed of the availability of a rehabilitation services aide shouldfurther needs arise. There were no further needs at this time.To contact the Spiritual Care Department: Please call [phone], [address] aSpiritual Care Consult (or page the rehabilitation services aide on-call at [phone] foremergent needs).SIGNATURE: Lauren Chantal Chaplain Ronni PATIENT NAME: Rocio Sibley: August 31, 2017 : 10:59 AM PAGER/CONTACT #: [phone] [facility] CASE MANAGEMon 08-31-2017 CASE MANAGEM HNO ID: [id number] thor: Alexandrea (Rn) Thom, RNService: Care ManagementAuthor Type: Registered NurseType: Care Mgt Progress NoteFiled: 08/31/2017 2:12 PMNote Text:CARE MANAGEMENT PROGRESS NOTESERVICE DATE: 08/31/2017SERVICE TIME: 12:14 PM LOS: 18 daysNeeds Prior to Discharge: To Be DeterminedThis met with Pt and his sisters at bedside.Per Pt and his sisters, the plan [place] [facility] [place].Medical Clearance is needed.Per discussion with SAIMA Briggs, the plan is for dc tomorrow,SIGNATURE: Alexandrea Tomas RN PATIENT NAME: Rocio JacksonDATE: August 31, 2017 : 12:12 PM PAGER/CONTACT #: [phone] [facility] CBC and Differentialon 08-31 Abs Baso <0.03 Normal <0.11 [facility] [place] Comment on above: Performed By: #### P T, PTT, AMYL, CMP, LIPA, PHOS ####[place] [address]#### TRANSF ####[place] [address] [place] [phone] Abs Elmore 0.30 k/uL Normal <0.87 [facility] [place] Comment on above: Performed By: #### P T, PTT, AMYL, CMP, LIPA, PHOS ####[place] [address]#### TRANSF ####[place] [phone] Abs Neut 2.32 k/uL Normal 1.45-7.50 [facility] [place] Comment on above: Performed By: #### P T, PTT, AMYL, CMP, LIPA, PHOS ####[place] [address]#### TRANSF ####[place] [address] Basophils/100 WBC Auto (Bld) 0.5 % Normal [facility] [place] Comment on above: Performed By: #### P T, PTT, AMYL, CMP, LIPA, PHOS ####[place] [address]#### TRANSF ####[place] [address] DTYPE Auto Diff Normal [facility] [place] Comment on above: Performed By: #### P T, PTT, AMYL, CMP, LIPA, PHOS ####[place] [address]#### TRANSF ####[address] [place] [phone] Eosinophils 0.23 10*3/uL Normal <0.46 [facility] [place] Comment on above: Performed By: #### P T, PTT, AMYL, CMP, LIPA, PHOS ####[place] [address]#### TRANSF ####[address] [place] [phone] Eosinophils/100 leukocytes 5.2 % Normal [facility] [place] Comment on above: Performed By: #### P T, PTT, AMYL, CMP, LIPA, PHOS ####[place] [address]#### TRANSF ####[place] [address] Erythrocyte distribution width Auto Ratio (RBC) 15.2 % High 11.5-15.0 [facility] [place] Comment on above: Performed By: #### P T, PTT, AMYL, CMP, LIPA, PHOS ####[place] [address]#### TRANSF ####[place] [address] Erythrocytes (RBC) 2.94 10*6/uL Low 4.20-6.00 [facility] Comment on above: Performed By: #### P T, PTT, AMYL, CMP, LIPA, PHOS ####[place] [address]#### TRANSF ####[place] [address] Hematocrit (HCT) 25.1 % Low 39.0-51.0 [facility] [place] Comment on above: Performed By: #### P T, PTT, AMYL, CMP, LIPA, PHOS ####[place] [address]#### TRANSF ####[address] [place] [phone] Hemoglobin mass conc (Bld) 8.0 g/dL Low 13.0-17.0 [facility] [place] Comment on above: Performed By: #### P T, PTT, AMYL, CMP, LIPA, PHOS ####[place] [address]#### TRANSF ####[place] [phone] Lymphocytes 1.56 10*3/uL Normal 1.00-4.00 [facility] [place] Comment on above: Performed By: #### P T, PTT, AMYL, CMP, LIPA, PHOS ####[place] [address]#### TRANSF ####[place] [address] Lymphocytes/100 leukocytes 35.2 % Normal [facility] [place] Comment on above: Performed By: #### P T, PTT, AMYL, CMP, LIPA, PHOS ####[place] [address]#### TRANSF ####[place] [address] MCH 27.2 pG Normal 26.0-34.0 [facility] Comment on above: Performed By: #### P T, PTT, AMYL, CMP, LIPA, PHOS ####[place] [address]#### TRANSF ####[place] [phone] MCHC mass conc (RBC) 31.9 g/dL Normal 30.5-36.0 [facility] Comment on above: Performed By: #### P T, PTT, AMYL, CMP, LIPA, PHOS ####[address]#### TRANSF ####[place] [phone] MCV 85.4 fL Normal 80.0-100.0 [facility] Comment on above: Performed By: #### P T, PTT, AMYL, CMP, LIPA, PHOS ####[place] [address]#### TRANSF ####[place] [address] [address] [place] [phone] Monocytes/100 leukocytes 6.8 % Normal [facility] Comment on above: Performed By: #### P T, PTT, AMYL, CMP, LIPA, PHOS ####[place] [address]#### TRANSF ####[address] [place] [phone] Neutrophils/100 WBC Auto (Bld) 52.3 % Normal [facility] Comment on above: Performed By: #### P T, PTT, AMYL, CMP, LIPA, PHOS ####[place] [address]#### TRANSF ####[place] [phone] Platelet mean volume (PMV) 9.3 fL Normal 9.0-12.7 [facility] Comment on above: Performed By: #### P T, PTT, AMYL, CMP, LIPA, PHOS ####[place] [address]#### TRANSF ####[place] [phone] Platelets 470 10*3/uL High 150-400 [facility] Comment on above: Performed By: #### P T, PTT, AMYL, CMP, LIPA, PHOS ####[place] [address]#### TRANSF ####[address] [place] [phone] WBC (Leukocytes) 4.43 10*3/uL Normal 3.70-11.[address] [facility] Comment on above: Performed By: #### P T, PTT, AMYL, CMP, LIPA, PHOS ####[place] [phone]#### TRANSF ####[phone] Comp Metabolic Panelon 08-31 Alanine aminotransferase (ALT) 55 U/L High 5-50 [facility] Comment on above: Performed By: #### P T, PTT, AMYL, CMP, LIPA, PHOS ####[place] [address]#### TRANSF ####[phone] Albumin 2.8 g/dL Low 3.5-5.0 [facility] Comment on above: Performed By: #### P T, PTT, AMYL, CMP, LIPA, PHOS ####[place] [address]#### TRANSF ####[place] [phone] Alkaline phosphatase (ALP) 475 U/L High 40-150 [facility] Comment on above: Performed By: #### P T, PTT, AMYL, CMP, LIPA, PHOS ####[address]#### TRANSF ####[place] [address] Anion gap 7 mmol/L Low 9-18 [facility] Comment on above: Performed By: #### P T, PTT, AMYL, CMP, LIPA, PHOS ####[place] [address]40446[address]#### TRANSF ####[address] [place] [phone] Aspartate aminotransferase (AST) 59 U/L High 7-40 [facility] Comment on above: Performed By: #### P T, PTT, AMYL, CMP, LIPA, PHOS ####[place] [address]#### TRANSF ####[place] [address] Bilirubin (total) 0.4 mg/dL Normal 0.0-1.5 [facility] Comment on above: Performed By: #### P T, PTT, AMYL, CMP, LIPA, PHOS ####[place] [address]#### TRANSF ####[place] [phone] Calcium 7.9 mg/dL Low 8.5-10.5 [facility] Comment on above: Performed By: #### P T, PTT, AMYL, CMP, LIPA, PHOS ####[place] [address]#### TRANSF ####[place] [address] Chloride 102 mmol/L Normal 98-110 [facility] Comment on above: Performed By: #### P T, PTT, AMYL, CMP, LIPA, PHOS ####[place] [address]#### TRANSF ####[place] [phone] CO2 29 mmol/L Normal 23-32 [facility] Comment on above: Performed By: #### P T, PTT, AMYL, CMP, LIPA, PHOS ####[place] [address]#### TRANSF ####[address] [place] [phone] Creatinine 0.56 mg/dL Low 0.70-1.40 [facility] Comment on above: Performed By: #### P T, PTT, AMYL, CMP, LIPA, PHOS ####[place] [address]40446[address]#### TRANSF ####[place] [phone] eGFR (non-black) mL/min/{1.73_m2} Normal >60 [facility] Comment on above: Performed By: #### P T, PTT, AMYL, CMP, LIPA, PHOS ####[place] [address]#### TRANSF ####[place] [address] Glucose mass conc 165 mg/dL High 65-100 [facility] Comment on above: Performed By: #### P T, PTT, AMYL, CMP, LIPA, PHOS ####[address]#### TRANSF ####[place] [phone] Potassium molar conc 4.4 mmol/L Normal 3.5-5.0 [facility] Comment on above: Performed By: #### P T, PTT, AMYL, CMP, LIPA, PHOS ####[place] [address]40446[address]#### TRANSF ####[place] [address] Protein 6.4 g/dL Normal 6.0-8.4 [facility] Comment on above: Performed By: #### P T, PTT, AMYL, CMP, LIPA, PHOS ####[place] [address]#### TRANSF ####[place] [address] Sodium 138 mmol/L Normal 135-146 [facility] Comment on above: Performed By: #### P T, PTT, AMYL, CMP, LIPA, PHOS ####[place] [address]#### TRANSF ####[place] [address] Urea nitrogen 10 mg/dL Normal 10-25 [facility] Comment on above: Performed By: #### P T, PTT, AMYL, CMP, LIPA, PHOS ####[place] [address]#### TRANSF ####[phone] Magnesiumon 08-31-2017 Magnesium 2.3 mg/dL Normal 1.7-2.6 [facility] Comment on above: Performed By: #### P T, PTT, AMYL, CMP, LIPA, PHOS ####[place] [address]#### TRANSF ####[place] [phone] PLAN OF CAREon 08-31-2017 PLAN OF CARE HNO ID: [id number] thor: Miriam Britt ([employer])Service: (none)Author Type: TechnicianType: Plan of CareFiled: 08/31/2017 2:26 PMNote 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 Patient to use [facility] Bedside Delivery - N/A2. If fax, patient would like us to fax prescriptions to [facility]. Pharmacy: b. Location: c. Phone:3. Insurance card on file - N/A4. Credit card for payment - N/A Normal [facility] PLAN OF CARE HNO ID: [id number] thor: Macie Cruz (Pharmacist)Service: PharmacyAuthor Type: PharmacistType: Plan of CareFiled: 08/31/2017 9:28 AMNote Text:DISCHARGE MEDICATION REVIEW BY PHARMACYPatient Name: Rocio Jackson : [id number] Admission Date: 08/13/2017Date of Contact: August 31, 2017 Time of Contact: 9:28 AMMedication list was reviewed by a Pharmacist for drug interactions or drugrelated problems:Kathryn FreemanCap[facility])josé miguel 2017 9:28 AMMedication ListSTART taking these [...] oxyCODONE IR 5 mg immediate release tablet [facility] PROGRESSon 08-31-2017 PROGRESS HNO ID: [id number] thor: Michael Cedillo) AugustinService: General SurgeryAuthor Type: PhysicianType: Progress NotesFiled: 08/31/2017 7:00 PMNote Text:PROGRESS NOTES - SURGICAL SERVICESPATIENT NAME: Rocio JacksonMRN: [id number] HISTORY OF PRESENT ILLNESS:Resting well. No acute [...] discharge planningToms MD Froilan, MPH, FACSGeneral/Trauma/HPB SurgeryPager: [phone] Cell: [id number] 2017 Normal [facility] Phosphoruson 08-31-2017 Phosphate 2.1 mg/dL Low 2.5-4.5 [facility] Comment on above: Performed By: #### P T, PTT, AMYL, CMP, LIPA, PHOS ####[facility] [place] [phone]#### TRANSF ####[facility] [address] [place] [phone] THERAPY NTon 08-31-2017 THERAPY NT HNO ID: [id number] thor: Adela (Joe) Jhonatane: Physical TherapyAuthor Type: Physical Therapy AssistantType: Therapy (PT/OT/Speech/Resp)Filed: 08/31/2017 3:24 PMNote Text: -Attestation signed by Tonia Schmitz at 08/31/2017 3:44 PMI reviewed and agree with the documentation corresponding to this therapyvisit.SIGNATURE: Tonia Schmitz, PTDATE: August 31, 2017TIME: 3:44 PM Ph ysical Therapy TreatmentSERVICE DATE: 08/31/2017SERVICE TIME: 1350 to 1415ROOM: [place] [address] ( OPERATING ROOM)Recommended Discharge Disposition: Subacute/SNFRecommended Discharge [...] on feet;Difficulty walking-musculoskeletalInter ventions Provided: Therapeutic Exercise (32700);Gait Training (26084)Therapeutic Exercise (48329) Treatment Minutes: 101 unitSkilled Intervention(s): Instruction in therapeutic exercise for B LEstrengtheningVerbal and tactile cuing provided for pace and performanceGait Training (25915) Treatment Minutes: 151 unitSkilled Intervention(s): Instruction in [...] 31, 2017 : 3:22 PM PAGER/CONTACT #: [id number] Normal [facility] Basic Metabolic Panlon 08-30 Anion gap 10 mmol/L Normal 9-18 [facility] Comment on above: Performed By: #### P T, PTT, AMYL, CMP, LIPA, PHOS ####[place] [address]#### TRANSF ####[place] [address] Calcium 8.1 mg/dL Low 8.5-10.5 [facility] Comment on above: Performed By: #### P T, PTT, AMYL, CMP, LIPA, PHOS ####[address]#### TRANSF ####[place] [address] [address] [place] [phone] Chloride 102 mmol/L Normal 98-110 [facility] Comment on above: Performed By: #### P T, PTT, AMYL, CMP, LIPA, PHOS ####[place] [address]#### TRANSF ####[place] [address] [place] [phone] CO2 27 mmol/L Normal 23-32 [facility] Comment on above: Performed By: #### P T, PTT, AMYL, CMP, LIPA, PHOS ####[place] [address]#### TRANSF ####[place] [address] Creatinine 0.59 mg/dL Low 0.70-1.40 [facility] Comment on above: Performed By: #### P T, PTT, AMYL, CMP, LIPA, PHOS ####[place] [address]#### TRANSF ####[place] [address] eGFR (non-black) mL/min/{1.73_m2} Normal >60 [facility] Comment on above: Performed By: #### P T, PTT, AMYL, CMP, LIPA, PHOS ####[place] [address]#### TRANSF ####[place] [address] Glucose mass conc 133 mg/dL High 65-100 [facility] Comment on above: Performed By: #### P T, PTT, AMYL, CMP, LIPA, PHOS ####[place] [address]#### TRANSF ####[place] [address] Potassium molar conc 4.4 mmol/L Normal 3.5-5.0 [facility] Comment on above: Performed By: #### P T, PTT, AMYL, CMP, LIPA, PHOS ####[place] [address]#### TRANSF ####[place] [address] Sodium 139 mmol/L Normal 135-146 [facility] Comment on above: Performed By: #### P T, PTT, AMYL, CMP, LIPA, PHOS ####[place] [address]#### TRANSF ####[place] [address] Urea nitrogen 9 mg/dL Low 10-25 [facility] Comment on above: Performed By: #### P T, PTT, AMYL, CMP, LIPA, PHOS ####[place] [address]#### TRANSF ####[place] [address] CBC and Differentialon 08-30 Abs Baso <0.03 Normal <0.11 [facility] Comment on above: Performed By: #### P T, PTT, AMYL, CMP, LIPA, PHOS ####[place] [address]#### TRANSF ####[place] [address] Abs Elmore 0.42 k/uL Normal <0.87 [facility] Comment on above: Performed By: #### P T, PTT, AMYL, CMP, LIPA, PHOS ####[place] [address]#### TRANSF ####[place] [address] Abs Neut 2.87 k/uL Normal 1.45-7.50 [facility] Comment on above: Performed By: #### P T, PTT, AMYL, CMP, LIPA, PHOS ####[place] [address]#### TRANSF ####[place] [address] Basophils/100 WBC Auto (Bld) 0.4 % Normal [facility] Comment on above: Performed By: #### P T, PTT, AMYL, CMP, LIPA, PHOS ####[place] [address]#### TRANSF ####[address] [place] [phone] DTYPE Auto Diff Normal [facility] Comment on above: Performed By: #### P T, PTT, AMYL, CMP, LIPA, PHOS ####[place] [address]#### TRANSF ####[place] [address] Eosinophils 0.18 10*3/uL Normal <0.46 [facility] Comment on above: Performed By: #### P T, PTT, AMYL, CMP, LIPA, PHOS ####[place] [address]#### TRANSF ####[place] [address] Eosinophils/100 leukocytes 3.7 % Normal [facility] Comment on above: Performed By: #### P T, PTT, AMYL, CMP, LIPA, PHOS ####[place] [address]#### TRANSF ####[place] [address] Erythrocyte distribution width Auto Ratio (RBC) 15.4 % High 11.5-15.0 [facility] Comment on above: Performed By: #### P T, PTT, AMYL, CMP, LIPA, PHOS ####[place] [address]#### TRANSF ####[place] [address] [address] [place] [phone] Erythrocytes (RBC) 2.91 10*6/uL Low 4.20-6.00 [facility] Comment on above: Performed By: #### P T, PTT, AMYL, CMP, LIPA, PHOS ####[place] [address]#### TRANSF ####[place] [address] Hematocrit (HCT) 24.9 % Low 39.0-51.0 [facility] Comment on above: Performed By: #### P T, PTT, AMYL, CMP, LIPA, PHOS ####[place] [address]#### TRANSF ####[place] [address] Hemoglobin mass conc (Bld) 7.9 g/dL Low 13.0-17.0 [facility] Comment on above: Performed By: #### P T, PTT, AMYL, CMP, LIPA, PHOS ####[place] [address]#### TRANSF ####[place] [address] Lymphocytes 1.44 10*3/uL Normal 1.00-4.00 [facility] Comment on above: Performed By: #### P T, PTT, AMYL, CMP, LIPA, PHOS ####[place] [address]#### TRANSF ####[place] [address] Lymphocytes/100 leukocytes 29.2 % Normal [facility] Comment on above: Performed By: #### P T, PTT, AMYL, CMP, LIPA, PHOS ####[place] [address]#### TRANSF ####[place] [address] MCH 27.1 pG Normal 26.0-34.0 [facility] Comment on above: Performed By: #### P T, PTT, AMYL, CMP, LIPA, PHOS ####[address]#### TRANSF ####[place] [address] MCHC mass conc (RBC) 31.7 g/dL Normal 30.5-36.0 [facility] Comment on above: Performed By: #### P T, PTT, AMYL, CMP, LIPA, PHOS ####[place] [address]#### TRANSF ####[place] [address] MCV 85.6 fL Normal 80.0-100.0 [facility] Comment on above: Performed By: #### P T, PTT, AMYL, CMP, LIPA, PHOS ####[place] [address]#### TRANSF ####[place] [address] Monocytes/100 leukocytes 8.5 % Normal [facility] Comment on above: Performed By: #### P T, PTT, AMYL, CMP, LIPA, PHOS ####[address]#### TRANSF ####[place] [address] Neutrophils/100 WBC Auto (Bld) 58.2 % Normal [facility] Comment on above: Performed By: #### P T, PTT, AMYL, CMP, LIPA, PHOS ####[address]#### TRANSF ####[place] [phone] Platelet mean volume (PMV) 9.4 fL Normal 9.0-12.7 [facility] Comment on above: Performed By: #### P T, PTT, AMYL, CMP, LIPA, PHOS ####[place] [address]#### TRANSF ####[phone] Platelets 505 10*3/uL High 150-400 [facility] Comment on above: Performed By: #### P T, PTT, AMYL, CMP, LIPA, PHOS ####[address]#### TRANSF ####[place] [address] WBC (Leukocytes) 4.93 10*3/uL Normal 3.70-11.[address] [facility] Comment on above: Performed By: #### P T, PTT, AMYL, CMP, LIPA, PHOS ####[place] [address]#### TRANSF ####[place] [phone] Hepatic Functn Panelon 08-30 Alanine aminotransferase (ALT) 34 U/L Normal 5-50 [facility] Comment on above: Performed By: #### P T, PTT, AMYL, CMP, LIPA, PHOS ####[place] [address]#### TRANSF ####[place] [phone] Albumin 3.0 g/dL Low 3.5-5.0 [facility] Comment on above: Performed By: #### P T, PTT, AMYL, CMP, LIPA, PHOS ####[place] [address]#### TRANSF ####[place] [address] Alkaline phosphatase (ALP) 480 U/L High 40-150 [facility] Comment on above: Performed By: #### P T, PTT, AMYL, CMP, LIPA, PHOS ####[place] [address]#### TRANSF ####[place] [address] Aspartate aminotransferase (AST) 41 U/L High 7-40 [facility] Comment on above: Performed By: #### P T, PTT, AMYL, CMP, LIPA, PHOS ####[place] [address]#### TRANSF ####[place] [address] Bilirubin (total) 0.5 mg/dL Normal 0.0-1.5 [facility] Comment on above: Performed By: #### P T, PTT, AMYL, CMP, LIPA, PHOS ####[place] [address]#### TRANSF ####[place] [address] Bilirubin,Conjugated <0.2 Normal 0.0-0.4 [facility] Comment on above: Performed By: #### P T, PTT, AMYL, CMP, LIPA, PHOS ####[place] [address]#### TRANSF ####[place] [address] Protein 6.6 g/dL Normal 6.0-8.4 [facility] Comment on above: Performed By: #### P T, PTT, AMYL, CMP, LIPA, PHOS ####[facility] [place], [place] [phone]#### TRANSF ####[facility] [place], [place] [phone] Magnesiumon 08-30-2017 Magnesium 2.3 mg/dL Normal 1.7-2.6 [facility] Comment on above: Performed By: #### P T, PTT, AMYL, CMP, LIPA, PHOS ####[place] [address] [place], [place] [phone]#### TRANSF ####[facility] [place], [place] [phone] PROGRESSon 08-30-2017 PROGRESS HNO ID: [id number] thor: Michael Cedillo) AugustinService: General SurgeryAuthor Type: PhysicianType: Progress NotesFiled: 08/30/2017 10:38 AMNote Text: SURGERY INPATIENT PROGRESS NOTESName: Rocio Boudreaux: [id number] and Plan:62 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 Doing well.-Continue fulls with supplements-Capped PTHC, no increased drainage from other drains-Will follow up CMP-No Abx-No [place]-VTE Prophylaxis: enoxaparin, SCDs-Routine surgical care: IS, OOB- Will remove PICC line prior to discharge-Anticipate DC early next week, with [facility] or to SNFS: Resting well. No acute [...] acting) (HumaLOG) SUBCUTANEOUS w MEALSAND HSphenol 1 [place] (CHLORASEPTIC) 1 [place] MUCOUS MEMBRANE (TOPICAL MOUTH ANDTHROAT) q 2 [...] kg (192 lb) SpO2 99% BMI 29.19 kg/q0Znsehz/Output Summary (Last 24 hours) at 08/30/17 0850Last [...] scant clear drainage.Serena Trent, MDPGY -1 General SurgeryOhiohealth [facility] [address]:50 DARRELTANNEKA NOTEI have independently seen and examined the patient today. I haveindependently reviewed all the imaging and the labs. I agree with keycomponents of the resident's note above. Care plan and decision making hasbeen discussed.PTC was capped, J-P continues to be serous, patient tolerated PTC cappingwithout any issuesAppropriate by mouth intakeDischarge planningToms MD Froilan, MPH, FACSGeneral/Trauma/HPB SurgeryPager: [phone] Cell: [phone] 2017 Normal [facility] Phosphoruson 08-30-2017 Phosphate 2.8 mg/dL Normal 2.5-4.5 [facility] Comment on above: Performed By: #### P T, PTT, AMYL, CMP, LIPA, PHOS ####[place] [address]446[address]#### TRANSF ####[place] [phone] Basic Metabolic Panlon 08-29 Anion gap 10 mmol/L Normal 9-18 [facility] Comment on above: Performed By: #### P T, PTT, AMYL, CMP, LIPA, PHOS ####[phone]#### TRANSF ####[place] [phone] Calcium 8.4 mg/dL Low 8.5-10.5 [facility] Comment on above: Performed By: #### P T, PTT, AMYL, CMP, LIPA, PHOS ####[place] [address]#### TRANSF ####[place] [address] Chloride 103 mmol/L Normal 98-110 [facility] Comment on above: Performed By: #### P T, PTT, AMYL, CMP, LIPA, PHOS ####[place] [address]#### TRANSF ####[place] [address] CO2 26 mmol/L Normal 23-32 [facility] Comment on above: Performed By: #### P T, PTT, AMYL, CMP, LIPA, PHOS ####[place] [address]#### TRANSF ####[place] [address] Creatinine 0.66 mg/dL Low 0.70-1.40 [facility] Comment on above: Performed By: #### P T, PTT, AMYL, CMP, LIPA, PHOS ####[place] [address]#### TRANSF ####[place] [address] eGFR (non-black) mL/min/{1.73_m2} Normal >60 [facility] Comment on above: Performed By: #### P T, PTT, AMYL, CMP, LIPA, PHOS ####[place] [address]#### TRANSF ####[place] [address] Glucose mass conc 118 mg/dL High 65-100 [facility] Comment on above: Performed By: #### P T, PTT, AMYL, CMP, LIPA, PHOS ####[place] [address]#### TRANSF ####[place] [address] Potassium molar conc 4.3 mmol/L Normal 3.5-5.0 [facility] Comment on above: Performed By: #### P T, PTT, AMYL, CMP, LIPA, PHOS ####[place] [address]#### TRANSF ####[place] [address] Sodium 139 mmol/L Normal 135-146 [facility] Comment on above: Performed By: #### P T, PTT, AMYL, CMP, LIPA, PHOS ####[place] [address]#### TRANSF ####[place] [address] Urea nitrogen 10 mg/dL Normal 10-25 [facility] Comment on above: Performed By: #### P T, PTT, AMYL, CMP, LIPA, PHOS ####[place] [address]#### TRANSF ####[place] [address] CBC and Differentialon 08-29 Abs Baso <0.03 Normal <0.11 [facility] Comment on above: Performed By: #### P T, PTT, AMYL, CMP, LIPA, PHOS ####[place] [address]#### TRANSF ####[place] [address] Abs Elmore 0.43 k/uL Normal <0.87 [facility] Comment on above: Performed By: #### P T, PTT, AMYL, CMP, LIPA, PHOS ####[place] [address]#### TRANSF ####[place] [address] Abs Neut 2.71 k/uL Normal 1.45-7.50 [facility] Comment on above: Performed By: #### P T, PTT, AMYL, CMP, LIPA, PHOS ####[place] [address]#### TRANSF ####[place] [address] Basophils/100 WBC Auto (Bld) 0.4 % Normal [facility] Comment on above: Performed By: #### P T, PTT, AMYL, CMP, LIPA, PHOS ####[place] [address]#### TRANSF ####[place] [address] DTYPE Auto Diff [facility] Comment on above: Performed By: #### P T, PTT, AMYL, CMP, LIPA, PHOS ####[place] [address]#### TRANSF ####[place] [address] Eosinophils 0.15 10*3/uL Normal <0.46 [facility] Comment on above: Performed By: #### P T, PTT, AMYL, CMP, LIPA, PHOS ####[place] [address]#### TRANSF ####[place] [address] Eosinophils/100 leukocytes 3.2 % Normal [facility] Comment on above: Performed By: #### P T, PTT, AMYL, CMP, LIPA, PHOS ####[place] [address]#### TRANSF ####[place] [address] Erythrocyte distribution width Auto Ratio (RBC) 15.1 % High 11.5-15.0 [facility] Comment on above: Performed By: #### P T, PTT, AMYL, CMP, LIPA, PHOS ####[place] [address]#### TRANSF ####[place] [address] Erythrocytes (RBC) 2.98 10*6/uL Low 4.20-6.00 [facility] Comment on above: Performed By: #### P T, PTT, AMYL, CMP, LIPA, PHOS ####[place] [address]#### TRANSF ####[place] [address] Hematocrit (HCT) 26.1 % Low 39.0-51.0 [facility] Comment on above: Performed By: #### P T, PTT, AMYL, CMP, LIPA, PHOS ####[place] [address]#### TRANSF ####[place] [address] Hemoglobin mass conc (Bld) 8.1 g/dL Low 13.0-17.0 [facility] Comment on above: Performed By: #### P T, PTT, AMYL, CMP, LIPA, PHOS ####[place] [address]#### TRANSF ####[place] [phone] Lymphocytes 1.44 10*3/uL Normal 1.00-4.00 [facility] Comment on above: Performed By: #### P T, PTT, AMYL, CMP, LIPA, PHOS ####[place] [address]#### TRANSF ####[place] [address] Lymphocytes/100 leukocytes 30.3 % Normal [facility] Comment on above: Performed By: #### P T, PTT, AMYL, CMP, LIPA, PHOS ####[place] [address]#### TRANSF ####[place] [address] MCH 27.2 pG Normal 26.0-34.0 [facility] Comment on above: Performed By: #### P T, PTT, AMYL, CMP, LIPA, PHOS ####[place] [address]#### TRANSF ####[place] [address] MCHC mass conc (RBC) 31.0 g/dL Normal 30.5-36.0 [facility] Comment on above: Performed By: #### P T, PTT, AMYL, CMP, LIPA, PHOS ####[place] [address]#### TRANSF ####[place] [phone] MCV 87.6 fL Normal 80.0-100.0 [facility] Comment on above: Performed By: #### P T, PTT, AMYL, CMP, LIPA, PHOS ####[place] [address]#### TRANSF ####[place] [address] Monocytes/100 leukocytes 9.1 % Normal [facility] Comment on above: Performed By: #### P T, PTT, AMYL, CMP, LIPA, PHOS ####[place] [address]#### TRANSF ####[address] [place] [phone] Neutrophils/100 WBC Auto (Bld) 57.0 % Normal [facility] Comment on above: Performed By: #### P T, PTT, AMYL, CMP, LIPA, PHOS ####[place] [address]#### TRANSF ####[place] [phone] Platelet mean volume (PMV) 9.5 fL Normal 9.0-12.7 [facility] Comment on above: Performed By: #### P T, PTT, AMYL, CMP, LIPA, PHOS ####[place] [address]#### TRANSF ####[place] [address] Platelets 508 10*3/uL High 150-400 [facility] Comment on above: Performed By: #### P T, PTT, AMYL, CMP, LIPA, PHOS ####[place] [address]#### TRANSF ####[place] [phone] WBC (Leukocytes) 4.75 10*3/uL Normal 3.70-11.[address] [facility] Comment on above: Performed By: #### P T, PTT, AMYL, CMP, LIPA, PHOS ####[place] [address]446[address]#### TRANSF ####[address] Av[address] [place] [phone] Magnesiumon 08-29-2017 Magnesium 2.2 mg/dL Normal 1.7-2.6 [facility] Comment on above: Performed By: #### P T, PTT, AMYL, CMP, LIPA, PHOS ####[facility] [place], [place] [phone]#### TRANSF ####[facility] [address] [place], [place] [phone] NURSING PROGon 08-29-2017 NURSING PROG HNO ID: [id number] thor: Saima Kramer (Rn) Debra, RNService: (none)Author Type: Registered NurseType: Nursing Progress NoteFiled: 08/29/2017 4:09 PMNote Text: Nursing Progress NotePatient Name: Rociomarisa Boudreaux: [id number] Location: [place] [address]/[id number] ____Daily Note:Pt sitting in bed and upon [...] was completed by: Saima Richardson RN Normal [facility] PROGRESSon 08-29-2017 PROGRESS HNO ID: [id number] thor: Michael Cedillo) AugustinService: General SurgeryAuthor Type: PhysicianType: Progress NotesFiled: 08/29/2017 11:10 AMNote Text: SURGERY INPATIENT PROGRESS NOTESName: Rocio Boudreaux: [id number] and Plan:62 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 No acute [...] 5,000 Units SUBCUTANEOUS q 8 Hphenol 1 [place] (CHLORASEPTIC) 1 [place] MUCOUS MEMBRANE (TOPICAL MOUTH ANDTHROAT) q 2 [...] kg (192 lb) SpO2 97% BMI 29.19 kg/k5Bvtgio/Output Summary (Last 24 hours) at 08/29/17 0737Last [...] cap PTC.Michael Jolley MD, MPH, FACSGeneral/Trauma/HPB SurgeryPager: [phone] Cell: [phone] 2017 Normal [facility] Phosphoruson 08-29-2017 Phosphate 2.6 mg/dL Normal 2.5-4.5 [facility] Comment on above: Performed By: #### P T, PTT, AMYL, CMP, LIPA, PHOS ####[phone]#### TRANSF ####[facility], [place] [phone] Basic Metabolic Panlon 08-28 Anion gap 10 mmol/L Normal 03-16 [facility] Comment on above: Performed By: #### P T, PTT, AMYL, CMP, LIPA, PHOS ####[address] [phone]#### TRANSF ####[facility] [place] [phone] Calcium 8.8 mg/dL Normal 8.5-10.5 [facility] Comment on above: Performed By: #### P T, PTT, AMYL, CMP, LIPA, PHOS ####[place] [address]#### TRANSF ####[place] [address] Chloride 102 mmol/L Normal 98-110 [facility] Comment on above: Performed By: #### P T, PTT, AMYL, CMP, LIPA, PHOS ####[place] [address]#### TRANSF ####[place] [phone] CO2 26 mmol/L Normal 23-32 [facility] Comment on above: Performed By: #### P T, PTT, AMYL, CMP, LIPA, PHOS ####[place] [address]#### TRANSF ####[place] [address] Creatinine 0.71 mg/dL Normal 0.70-1.40 [facility] Comment on above: Performed By: #### P T, PTT, AMYL, CMP, LIPA, PHOS ####[place] [address]#### TRANSF ####[place] [phone] eGFR (non-black) mL/min/{1.73_m2} Normal >60 [facility] Comment on above: Performed By: #### P T, PTT, AMYL, CMP, LIPA, PHOS ####[place] [address]#### TRANSF ####[address] [place] [place] [phone] Glucose mass conc 138 mg/dL High 65-100 [facility] Comment on above: Performed By: #### P T, PTT, AMYL, CMP, LIPA, PHOS ####[place] [address]#### TRANSF ####[place] [address] Potassium molar conc 4.5 mmol/L Normal 3.5-5.0 [facility] Comment on above: Performed By: #### P T, PTT, AMYL, CMP, LIPA, PHOS ####[place] [address]#### TRANSF ####[place] [phone] Sodium 138 mmol/L Normal 135-146 [facility] Comment on above: Performed By: #### P T, PTT, AMYL, CMP, LIPA, PHOS ####[place] [address]#### TRANSF ####[place] [phone] Urea nitrogen 9 mg/dL Low 10-25 [facility] Comment on above: Performed By: #### P T, PTT, AMYL, CMP, LIPA, PHOS ####[place] [address]#### TRANSF ####[phone] CASE MANAGEMon 08-28-2017 CASE MANAGEM HNO ID: [id number] thor: Alexandrea KenRnLyric Tomas, RNService: Care ManagementAuthor Type: Registered NurseType: Care Mgt Progress NoteFiled: 08/28/2017 2:51 PMNote Text:CARE MANAGEMENT PROGRESS NOTESERVICE DATE: 08/28/2017SERVICE TIME: 2:48 PM LOS: 15 daysNeeds Prior to Discharge: To Be Determined Medical Clearance needed.GI Soft Diet.Pt Remains with int and ext bliliary drain.Plan is for SNF vs C when medically cleared,[facility] in [facility] notification is needed (not precert)CM remains available to assist with skilled dc needs.SIGNATURE: Alexandrea Tomas RN PATIENT NAME: Rocio JacksonDATE: August 28, 2017 : 2:47 PM PAGER/CONTACT #: [phone] Normal [facility] CBC and Differentialon 08-28 Abs Baso <0.03 Normal <0.11 [facility] Comment on above: Performed By: #### P T, PTT, AMYL, CMP, LIPA, PHOS ####[place] [address]#### TRANSF ####[place] [address] [place] [address] Abs Elmore 0.43 k/uL Normal <0.87 [facility] Comment on above: Performed By: #### P T, PTT, AMYL, CMP, LIPA, PHOS ####[place] [address]#### TRANSF ####[place] [phone] Abs Neut 3.60 k/uL Normal 1.45-7.50 [facility] Comment on above: Performed By: #### P T, PTT, AMYL, CMP, LIPA, PHOS ####[place] [address]#### TRANSF ####[place] [address] Basophils/100 WBC Auto (Bld) 0.3 % Normal [facility] Comment on above: Performed By: #### P T, PTT, AMYL, CMP, LIPA, PHOS ####[place] [address]#### TRANSF ####[place] [phone] DTYPE Auto Diff Normal [facility] Comment on above: Performed By: #### P T, PTT, AMYL, CMP, LIPA, PHOS ####[place] [address]#### TRANSF ####[place] [address] Eosinophils 0.17 10*3/uL Normal <0.46 [facility] Comment on above: Performed By: #### P T, PTT, AMYL, CMP, LIPA, PHOS ####[place] [address]#### TRANSF ####[place] [address] Eosinophils/100 leukocytes 3.0 % Normal [facility] Comment on above: Performed By: #### P T, PTT, AMYL, CMP, LIPA, PHOS ####[place] [address]#### TRANSF ####[place] [address] Erythrocyte distribution width Auto Ratio (RBC) 15.5 % High 11.5-15.0 [facility] Comment on above: Performed By: #### P T, PTT, AMYL, CMP, LIPA, PHOS ####[place] [address]#### TRANSF ####[place] [address] Erythrocytes (RBC) 3.08 10*6/uL Low 4.20-6.00 [facility] Comment on above: Performed By: #### P T, PTT, AMYL, CMP, LIPA, PHOS ####[place] [address]#### TRANSF ####[place] [address] Hematocrit (HCT) 26.4 % Low 39.0-51.0 [facility] Comment on above: Performed By: #### P T, PTT, AMYL, CMP, LIPA, PHOS ####[place] [address]#### TRANSF ####[place] [address] Hemoglobin mass conc (Bld) 8.4 g/dL Low 13.0-17.0 [facility] Comment on above: Performed By: #### P T, PTT, AMYL, CMP, LIPA, PHOS ####[place] [address]#### TRANSF ####[place] [address] Lymphocytes 1.50 10*3/uL Normal 1.00-4.00 [facility] Comment on above: Performed By: #### P T, PTT, AMYL, CMP, LIPA, PHOS ####[place] [address]#### TRANSF ####[place] [address] Lymphocytes/100 leukocytes 26.2 % Normal [facility] Comment on above: Performed By: #### P T, PTT, AMYL, CMP, LIPA, PHOS ####[place] [address]#### TRANSF ####[place] [address] MCH 27.3 pG Normal 26.0-34.0 [facility] Comment on above: Performed By: #### P T, PTT, AMYL, CMP, LIPA, PHOS ####[place] [address]#### TRANSF ####[place] [address] MCHC mass conc (RBC) 31.8 g/dL Normal 30.5-36.0 [facility] Comment on above: Performed By: #### P T, PTT, AMYL, CMP, LIPA, PHOS ####[place] [address]#### TRANSF ####[place] [address] MCV 85.7 fL Normal 80.0-100.0 [facility] Comment on above: Performed By: #### P T, PTT, AMYL, CMP, LIPA, PHOS ####[place] [address]#### TRANSF ####[place] [address] Monocytes/100 leukocytes 7.5 % Normal [facility] Comment on above: Performed By: #### P T, PTT, AMYL, CMP, LIPA, PHOS ####[place] [address]#### TRANSF ####[place] [address] Neutrophils/100 WBC Auto (Bld) 63.0 % Normal [facility] Comment on above: Performed By: #### P T, PTT, AMYL, CMP, LIPA, PHOS ####[place] [address]#### TRANSF ####[place] [address] Platelet mean volume (PMV) 9.7 fL Normal 9.0-12.7 [facility] Comment on above: Performed By: #### P T, PTT, AMYL, CMP, LIPA, PHOS ####[place] [address]#### TRANSF ####[place] [phone] Platelets 518 10*3/uL High 150-400 [facility] Comment on above: Performed By: #### P T, PTT, AMYL, CMP, LIPA, PHOS ####[place] [address]#### TRANSF ####[place] [phone] WBC (Leukocytes) 5.72 10*3/uL Normal 3.70-11.[address] [facility] Comment on above: Performed By: #### P T, PTT, AMYL, CMP, LIPA, PHOS ####[place] [address]#### TRANSF ####[place] [phone] Magnesiumon 08-28-2017 Magnesium 2.2 mg/dL Normal 1.7-2.6 [facility] Comment on above: Performed By: #### P T, PTT, AMYL, CMP, LIPA, PHOS ####[place] [address]#### TRANSF ####[place] [phone] NURSING PROGon 08-28-2017 NURSING PROG HNO ID: [id number] thor: Pramod (Rn) MOUSTAPHA Mckennaervice: (none)Author Type: Registered NurseType: Nursing Progress NoteFiled: 08/28/2017 5:07 PMNote Text: Nursing Progress NotePatient Name: Rocio JacksonN: [id number] Location: [place] [address]/[id number] ____Daily Note: 08/28/17 0840 (late entry)- Patient [...] are within reach.08/28/17 0930 (late entry)- Dr. Jolley rounded on patient this morning anddiscussed patient's [...] note was completed by: Pramod Mckenna RN [facility] PROGRESSon 08-28-2017 PROGRESS HNO ID: [id number] thor: Michael Cedillo) AugustinService: General SurgeryAuthor Type: PhysicianType: Progress NotesFiled: 08/28/2017 11:12 AMNote Text:PROGRESS NOTES - SURGICAL SERVICESPATIENT NAME: Rocio Boudreaux: [id number] HISTORY OF PRESENT ILLNESS:No acute events overnight. [...] dietDC planningToms Froilan MD, MPH, FACSGeneral/Trauma/HPB SurgeryPager: [phone] Cell: [phone] 2017 [facility] PT EDon 08-28-2017 PT ED HNO ID: [id number] thor: Yohana (Diet-T) MarichuyanService: Nutrition TherapyAuthor Type: Dietetic TechnicianType: Patient EducationFiled: 08/28/2017 1:24 PMNote Text:NUTRITION PATIENT EDUCATIONTOPIC: Survival Skills: DietPATIENT NAME: Rocio JacksonMRN: [id number] DATE: August 28, 2017Diagnosis: ADULT: Duodenal ObstructionREADINESS [...] Billing Type: Routine Care/15 min 2 triston Mackey-tPager: [phone] 20171:22 PM Normal [facility] Phosphoruson 08-28-2017 Phosphate 3.4 mg/dL Normal 2.5-4.5 [facility] Comment on above: Performed By: #### P T, PTT, AMYL, CMP, LIPA, PHOS ####[facility] [place] [phone]#### TRANSF ####[facility] [address] [place], [place] [phone] THERAPY NTon 08-28-2017 THERAPY NT HNO ID: [id number] thor: Saima Feliciano (Cota)pasService: Occupational TherapyAuthor Type: Occupational Therapy AssistantType: Therapy (PT/OT/Speech/Resp)Filed: 08/28/2017 3:09 PMNote Text: -Attestation signed by Nolvia Reilly at 08/28/2017 3:48 PMI reviewed and agree with the documentation corresponding to this therapyvisit.SIGNATURE: WENDY Cade/LDATE: August 28, 2017TIME: 3:48 PM Oc cupational Therapy TreatmentSERVICE DATE: 3/2/2018SERVICE TIME: 1420 to 1500ROOM: [id number] ( OPERATING ROOM)Recommended Discharge Disposition: Subacute/SNFRecommended Discharge Disposition Comments: ([place]in [place])Anticipated Discharge Needs: Supervision at HomePhysical Assist at Home for:Cleaning;Laundry;Meals;S hopping;Transportation;Ambul ationSupervision at Home due to: Other: See Comment (recent surgery)Recommended Discharge Equipment: Elastic Shoe Laces;Grab Bars-Shower;HandHeld Shower;Long Handled Shoe Horn;Long Handled Sponge;WheeledWalker;Advisor Consultant ;Sock Aide;Shower ChairOT Recommendations to Nursing: OOB [...] PatientTREATMENT INTERVENTIONS:Therapy Diagnosis: Reduced mobility-otherInterventions Provided: Self Half-Way Management (66787);TherapeuticActivity (05155)Therapeutic Activity (47643) Treatment Minutes: 101 unitSkilled Intervention(s): Instructed patient in log roll techniqueInstruction in sit to and from stand technique with proper hand placementand body positioning at edge of bed/chairInstruction of safe transport of items from room to room with use of bagon the ww.Self Half-Way Management (34614) Treatment Minutes: 302 unitsSkilled Intervention(s): Provided instruction, cuing and facilitation forlower body dressing .Instructed pt on use of non licensed operator to zee/doff pants, underwear, shoes inorder to [...] August 28, 2017 : 3:04 PM PAGER: [phone] [facility] THERAPY NT HNO ID: [id number] thor: Saima Allen) BradenpasService: Occupational TherapyAuthor Type: Occupational Therapy AssistantType: Therapy (PT/OT/Speech/Resp)Filed: 08/28/2017 12:27 PMNote Text: -Attestation signed by Nolvia Reilly at 08/28/2017 1:15 PMI reviewed and agree with the documentation corresponding to this therapyvisit.SIGNATURE: WENDY Cade/LDATE: August 28, 2017TIME: 1:15 PM OC CUPATIONAL THERAPY MISSED VISITSERVICE DATE: 08/28/2017SERVICE TIME: 1148 to 1148ROOM: [place] [address] ( OPERATING ROOM)Attempted Treatment. Patient not seen due to Eating.Will attempt again asschedule permits.SIGNATURE: TRACY Dumont PATIENT NAME: Rocio VizcarraTE: August 28, 2017 : 12:27 PM PAGER/CONTACT #:[phone] [facility] BRIEF OP NOTon 08-27-2017 BRIEF OP NOT HNO ID: [id number] thor: Juan AgueroService: RadiologyAuthor Type: PhysicianType: Brief Op NoteFiled: 08/27/2017 11:09 AMNote Text:OPERATIVE/PROCEDURE REPORTLOG ID: [id number]/Procedure Date: 08/19/2017Incision/Procedure Start Time:Incision Close/Procedure End Time:Surgeon(s)/Proceduralis t(s) and Travel Registered Nurse Oncology(s):Surgeon(s) and Role: * Vanessa Finley Additional StaffProcedure(s):Patient [...] 27, 2017 : 11:02 AM PAGER/CONTACT #: [phone] Normal [facility] Basic Metabolic Panlon 08-27 Anion gap 9 mmol/L Normal 9-18 [facility] Comment on above: Performed By: #### P T, PTT, AMYL, CMP, LIPA, PHOS ####[place] [address]#### TRANSF ####[place] [address] [place] [address] Calcium 8.5 mg/dL Normal 8.5-10.5 [facility] Comment on above: Performed By: #### P T, PTT, AMYL, CMP, LIPA, PHOS ####[place] [address]#### TRANSF ####[facility] [address] AveCSarah Ville [phone] Chloride 102 mmol/L Normal 98-110 [facility] Comment on above: Performed By: #### P T, PTT, AMYL, CMP, LIPA, PHOS ####[place] [address]#### TRANSF ####[place] [address] [address] [place] [phone] CO2 27 mmol/L Normal 23-32 [facility] Comment on above: Performed By: #### P T, PTT, AMYL, CMP, LIPA, PHOS ####[address]#### TRANSF ####[phone] Creatinine 0.66 mg/dL Low 0.70-1.40 [facility] Comment on above: Performed By: #### P T, PTT, AMYL, CMP, LIPA, PHOS ####[address]#### TRANSF ####[place] [address] eGFR (non-black) mL/min/{1.73_m2} Normal >60 [facility] Comment on above: Performed By: #### P T, PTT, AMYL, CMP, LIPA, PHOS ####[place] [address]#### TRANSF ####[place] [address] Glucose mass conc 105 mg/dL High 65-100 [facility] Comment on above: Performed By: #### P T, PTT, AMYL, CMP, LIPA, PHOS ####[place] [address]#### TRANSF ####[place] [address] Potassium molar conc 4.4 mmol/L Normal 3.5-5.0 [facility] Comment on above: Performed By: #### P T, PTT, AMYL, CMP, LIPA, PHOS ####[place] [address]#### TRANSF ####[place] [address] Sodium 138 mmol/L Normal 135-146 [facility] Comment on above: Performed By: #### P T, PTT, AMYL, CMP, LIPA, PHOS ####[place] [address]40446[address]#### TRANSF ####[place] [address] [place], [place] [phone] Urea nitrogen 11 mg/dL Normal 10-25 [facility] Comment on above: Performed By: #### P T, PTT, AMYL, CMP, LIPA, PHOS ####[place] [address]40446[address]71[address]#### TRANSF ####[place] [address] CASE MANAGEMon 08-27-2017 CASE MANAGEM HNO ID: [id number] thor: Catherine KenRn) Leeann, RNService: Case ManagementAuthor Type: Registered NurseType: Care Mgt Progress NoteFiled: 08/27/2017 4:26 PMNote Text:CARE MANAGEMENT PROGRESS NOTESERVICE DATE: 08/27/2017SERVICE TIME: 4:15 pm LOS: 14 daysMet with patient and sister Briana at bedside. Due to patient's currentclinical status, and the fact that he is single and lives alone, thepatient has elected to pursue placement at [facility]. Updates sent to [facility]. CM will continue to followplan of care to assist with discharge planning.SIGNATURE: Catherine Bradshaw RN PATIENT NAME: Rocio VizcarraTE: August 27, 2017 : 4:18 PM PAGER/CONTACT #: [phone] Normal [facility] CBC and Differentialon 08-27 Abs Baso 0.03 k/uL Normal <0.11 [facility] Comment on above: Performed By: #### P T, PTT, AMYL, CMP, LIPA, PHOS ####[place] [address]40446[address]71[address]#### TRANSF ####[place] [id number] [place] [address]684[address] Abs Elmore 0.29 k/uL Normal <0.87 [facility] Comment on above: Performed By: #### P T, PTT, AMYL, CMP, LIPA, PHOS ####[place] [address]#### TRANSF ####[place] [address] Abs Neut 3.08 k/uL Normal 1.45-7.50 [facility] Comment on above: Performed By: #### P T, PTT, AMYL, CMP, LIPA, PHOS ####[place] [address]#### TRANSF ####[place] [address] Basophils/100 WBC Auto (Bld) 0.6 % Normal [facility] Comment on above: Performed By: #### P T, PTT, AMYL, CMP, LIPA, PHOS ####[place] [address]#### TRANSF ####[place] [address] DTYPE Auto Diff Normal [facility] Comment on above: Performed By: #### P T, PTT, AMYL, CMP, LIPA, PHOS ####[place] [address]#### TRANSF ####[place] [address] Eosinophils 0.19 10*3/uL Normal <0.46 [facility] Comment on above: Performed By: #### P T, PTT, AMYL, CMP, LIPA, PHOS ####[place] [address]#### TRANSF ####[place] [phone] Eosinophils/100 leukocytes 3.7 % Normal [facility] Comment on above: Performed By: #### P T, PTT, AMYL, CMP, LIPA, PHOS ####[place] [address]#### TRANSF ####[place] [address] Erythrocyte distribution width Auto Ratio (RBC) 15.6 % High 11.5-15.0 [facility] Comment on above: Performed By: #### P T, PTT, AMYL, CMP, LIPA, PHOS ####[place] [address]#### TRANSF ####[place] [address] Erythrocytes (RBC) 2.90 10*6/uL Low 4.20-6.00 [facility] Comment on above: Performed By: #### P T, PTT, AMYL, CMP, LIPA, PHOS ####[place] [address]#### TRANSF ####[place] [address] Hematocrit (HCT) 25.1 % Low 39.0-51.0 [facility] Comment on above: Performed By: #### P T, PTT, AMYL, CMP, LIPA, PHOS ####[place] [address]#### TRANSF ####[place] [address] Hemoglobin mass conc (Bld) 8.0 g/dL Low 13.0-17.0 [facility] Comment on above: Performed By: #### P T, PTT, AMYL, CMP, LIPA, PHOS ####[place] [address]#### TRANSF ####[place] [address] Lymphocytes 1.56 10*3/uL Normal 1.00-4.00 [facility] Comment on above: Performed By: #### P T, PTT, AMYL, CMP, LIPA, PHOS ####[address]#### TRANSF ####[place] [address] Lymphocytes/100 leukocytes 30.3 % Normal [facility] Comment on above: Performed By: #### P T, PTT, AMYL, CMP, LIPA, PHOS ####[address]#### TRANSF ####[place] [address] MCH 27.6 pG Normal 26.0-34.0 [facility] Comment on above: Performed By: #### P T, PTT, AMYL, CMP, LIPA, PHOS ####[place] [address]#### TRANSF ####[place] [address] MCHC mass conc (RBC) 31.9 g/dL Normal 30.5-36.0 [facility] Comment on above: Performed By: #### P T, PTT, AMYL, CMP, LIPA, PHOS ####[place] [address]#### TRANSF ####[place] [address] MCV 86.6 fL Normal 80.0-100.0 [facility] Comment on above: Performed By: #### P T, PTT, AMYL, CMP, LIPA, PHOS ####[place] [address]#### TRANSF ####[address] Av[address] [place] [phone] Monocytes/100 leukocytes 5.6 % Normal [facility] Comment on above: Performed By: #### P T, PTT, AMYL, CMP, LIPA, PHOS ####[place] [address]#### TRANSF ####[address]la [place] [address] Neutrophils/100 WBC Auto (Bld) 59.8 % Normal [facility] Comment on above: Performed By: #### P T, PTT, AMYL, CMP, LIPA, PHOS ####[place] [address]#### TRANSF ####[place] [address] Platelet mean volume (PMV) 9.2 fL Normal 9.0-12.7 [facility] Comment on above: Performed By: #### P T, PTT, AMYL, CMP, LIPA, PHOS ####[place] [address]#### TRANSF ####[place] [phone] Platelets 481 10*3/uL High 150-400 [facility] Comment on above: Performed By: #### P T, PTT, AMYL, CMP, LIPA, PHOS ####[address]#### TRANSF ####[place] [phone] WBC (Leukocytes) 5.15 10*3/uL Normal 3.70-11.[address] [facility] Comment on above: Performed By: #### P T, PTT, AMYL, CMP, LIPA, PHOS ####[address], [place] [phone]#### TRANSF ####[facility] [address] [place], [place] [phone] IR EXCHANGE CATH BILI DRAINo n 08-27-2017 [...] Air Kerma: 2083.0 mGyDose Area Product (DAP): 454862.0 mGy*mt0Pyewdw Time: 14:00 min:secRadiation dose exceed 5 Gy: NoIf radiation dose exceeded 5 Gy, was counseling and instructional brochure provided: N/ATECHNIQUE: The patient was prepped and draped using all elements of maximal sterile barrier technique (cap, mask, sterile gown, sterile gloves, a large sterile sheet, hand hygiene and cutaneous antisepsis)After local anesthesia, the indwelling 10 Montserratian right internal/external drain was removed over a wire and a long sheath was placed. Cholangiogram was performed. Using a KMP catheter and Glidewire, access was obtained into the first part of the duodenum and then into the third part of the duodenum and contrast injection was performed to assess for duodenal stricture. Over an Amplatz wire, a 12 Montserratian right internal/external drain was placed with the [...] of Removed Specimens: noneATTENDING RADIOLOGIST: Juan Aguero M.D.JANITOR: NoneThe procedure was performed by the: attending radiologist, without an benefits assistant.The attending radiologist performed the following procedural [...] changed. Please maintain this tube to external bag.Sleep Manager: NII Transcribe Date/Time: Aug 27 2017 2:25PDictated by : JUAN AGUERO MDThis examination was interpreted and the report reviewed and electronically signed by: JUAN AGUERO MD on Aug 27 2017 4:27PM EST Normal [facility] Magnesiumon 08-27-2017 Magnesium 2.2 mg/dL Normal 1.7-2.6 [facility] Comment on above: Performed By: #### P T, PTT, AMYL, CMP, LIPA, PHOS ####[facility] [place], [place] [phone]#### TRANSF ####[facility] [address] [place], [place] [phone] PROGRESSon 08-27-2017 PROGRESS HNO ID: [id number] thor: Lee Ann Thao, MDService: General SurgeryAuthor Type: ResidentType: Progress NotesFiled: 08/27/2017 8:05 AMNote Text:PROGRESS NOTES - SURGICAL SERVICESPATIENT NAME: Rocio JacksonN: [id number] HISTORY OF PRESENT ILLNESS:No acute events overnight. [...] Carolina Thao MD8:02 AM August 27, 2017PAGER: [phone] [facility] PT EDon 08-27-2017 PT ED HNO ID: [id number] thor: Lee Ann (Rn) MOUSTAPHA Drakeervice: RadiologyAuthor Type: Registered NurseType: Patient EducationFiled: 08/27/2017 10:43 AMNote Text:PATIENT EDUCATION TOPIC: PROCEDURE / SURGERY: Procedure/Surgery:cholangiog shanon and biliary tube exchange 12frPATIENT NAME: Rocio Boudreaux: [id number] LOCATION: [place] [address]READINES S TO LEARNCOGNITIVE ABILITY: Alert and orientedMOTIVATION [...] NoneElectronically Signed By: Lee Ann Drake RN [facility] Phosphoruson 08-27-2017 Phosphate 4.0 mg/dL Normal 2.5-4.5 [facility] Comment on above: Performed By: #### P T, PTT, AMYL, CMP, LIPA, PHOS ####[facility] [place], [place] [phone]#### TRANSF ####[facility] [address] [place], [place] [phone] THERAPY NTon 08-27-2017 THERAPY NT HNO ID: [id number] thor: Mandi Bowmanervice: Occupational TherapyAuthor Type: Occupational TherapistType: Therapy (PT/OT/Speech/Resp)Filed: 08/27/2017 3:16 PMNote Text:OCCUPATIONAL THERAPY MISSED VISITSERVICE DATE: 08/27/2017SERVICE TIME: 1500 to 1500ROOM: [place] [address] ( OPERATING ROOM)Attempted Treatment. Patient not seen due to Other: See Comment(Cholangiogram Today).SIGNATURE: WENDY Arceo/Timo PATIENT NAME: Rocio Sibley: August 27, 2017 : 3:16 PM PAGER/CONTACT #:[phone] [facility] THERAPY NT HNO ID: [id number] thor: Adela Lopezvice: Physical TherapyAuthor Type: Physical Therapy AssistantType: Therapy (PT/OT/Speech/Resp)Filed: 08/27/2017 11:44 AMNote Text: -Attestation signed by Gonzales Vaca at 08/27/2017 11:44 AMI reviewed and agree with the assessment as documented above.SIGNATURE: Gonzales Vaca, PTDATE: August 27, 2017TIME: 11:44 AM PH YSICAL THERAPY MISSED VISITSERVICE DATE: 08/27/2017SERVICE TIME: 1110 to 1110ROOM: [place] [address] ( OPERATING ROOM)Attempted Treatment. Patient not seen due to Test/Procedure ( pt havingcholangiogram this a.m.).SIGNATURE: Adela Leong PTA PATIENT NAME: Rocio VizcarraTE: August 27, 2017 : 11:44 AM PAGER/CONTACT #: [phone] Normal [facility] Basic Metabolic Panlon 08-26 Anion gap 11 mmol/L Normal 9-18 [facility] Comment on above: Performed By: #### P T, PTT, AMYL, CMP, LIPA, PHOS ####[place] [address]#### TRANSF ####[place] [phone] Calcium 8.7 mg/dL Normal 8.5-10.5 [facility] Comment on above: Performed By: #### P T, PTT, AMYL, CMP, LIPA, PHOS ####[place] [address]#### TRANSF ####[place] [phone] Chloride 101 mmol/L Normal 98-110 [facility] Comment on above: Performed By: #### P T, PTT, AMYL, CMP, LIPA, PHOS ####[place] [address]#### TRANSF ####[address] [phone] CO2 26 mmol/L Normal 23-32 [facility] Comment on above: Performed By: #### P T, PTT, AMYL, CMP, LIPA, PHOS ####[address]#### TRANSF ####[place] [phone] Creatinine 0.58 mg/dL Low 0.70-1.40 [facility] Comment on above: Performed By: #### P T, PTT, AMYL, CMP, LIPA, PHOS ####[place] [address]#### TRANSF ####[place] [phone] eGFR (non-black) mL/min/{1.73_m2} Normal >60 [facility] Comment on above: Performed By: #### P T, PTT, AMYL, CMP, LIPA, PHOS ####[place] [address]#### TRANSF ####[place] [phone] Glucose mass conc 124 mg/dL High 65-100 [facility] Comment on above: Performed By: #### P T, PTT, AMYL, CMP, LIPA, PHOS ####[place] [address]#### TRANSF ####[place] [phone] Potassium molar conc 4.5 mmol/L Normal 3.5-5.0 [facility] Comment on above: Performed By: #### P T, PTT, AMYL, CMP, LIPA, PHOS ####[place] [address]#### TRANSF ####[place] [address] Sodium 138 mmol/L Normal 135-146 [facility] Comment on above: Performed By: #### P T, PTT, AMYL, CMP, LIPA, PHOS ####[place] [address]#### TRANSF ####[place] [phone] Urea nitrogen 11 mg/dL Normal 10-25 [facility] Comment on above: Performed By: #### P T, PTT, AMYL, CMP, LIPA, PHOS ####[place] [address]#### TRANSF ####[place] [phone] CBC and Differentialon 08-26 Abs Baso <0.03 Normal <0.11 [facility] Comment on above: Performed By: #### P T, PTT, AMYL, CMP, LIPA, PHOS ####[place] [address]#### TRANSF ####[place] [address] Abs Elmore 0.57 k/uL Normal <0.87 [facility] Comment on above: Performed By: #### P T, PTT, AMYL, CMP, LIPA, PHOS ####[place] [address]#### TRANSF ####[place] [address] Abs Neut 4.61 k/uL Normal 1.45-7.50 [facility] Comment on above: Performed By: #### P T, PTT, AMYL, CMP, LIPA, PHOS ####[place] [address]#### TRANSF ####[place] [address] [place] [phone] Basophils/100 WBC Auto (Bld) 0.1 % Normal [facility] Comment on above: Performed By: #### P T, PTT, AMYL, CMP, LIPA, PHOS ####[place] [address]#### TRANSF ####[place] [address] DTYPE Auto Diff Normal [facility] Comment on above: Performed By: #### P T, PTT, AMYL, CMP, LIPA, PHOS ####[place] [address]#### TRANSF ####[place] [phone] Eosinophils 0.20 10*3/uL Normal <0.46 [facility] Comment on above: Performed By: #### P T, PTT, AMYL, CMP, LIPA, PHOS ####[place] [address]#### TRANSF ####[place] [address] Eosinophils/100 leukocytes 2.9 % Normal [facility] Comment on above: Performed By: #### P T, PTT, AMYL, CMP, LIPA, PHOS ####[place] [address]#### TRANSF ####[place] [address] Erythrocyte distribution width Auto Ratio (RBC) 16.0 % High 11.5-15.0 [facility] Comment on above: Performed By: #### P T, PTT, AMYL, CMP, LIPA, PHOS ####[place] [address]#### TRANSF ####[place] [phone] Erythrocytes (RBC) 3.00 10*6/uL Low 4.20-6.00 [facility] Comment on above: Performed By: #### P T, PTT, AMYL, CMP, LIPA, PHOS ####[address]#### TRANSF ####[place] [phone] Hematocrit (HCT) 26.0 % Low 39.0-51.0 [facility] Comment on above: Performed By: #### P T, PTT, AMYL, CMP, LIPA, PHOS ####[address]#### TRANSF ####[place] [phone] Hemoglobin mass conc (Bld) 8.3 g/dL Low 13.0-17.0 [facility] Comment on above: Performed By: #### P T, PTT, AMYL, CMP, LIPA, PHOS ####[place] [address]#### TRANSF ####[place] [phone] Lymphocytes 1.44 10*3/uL Normal 1.00-4.00 [facility] Comment on above: Performed By: #### P T, PTT, AMYL, CMP, LIPA, PHOS ####[address]#### TRANSF ####[place] [address] Lymphocytes/100 leukocytes 21.1 % Normal [facility] Comment on above: Performed By: #### P T, PTT, AMYL, CMP, LIPA, PHOS ####[phone]#### TRANSF ####[place] [phone] MCH 27.7 pG Normal 26.0-34.0 [facility] Comment on above: Performed By: #### P T, PTT, AMYL, CMP, LIPA, PHOS ####[place] [address]#### TRANSF ####[place] [phone] MCHC mass conc (RBC) 31.9 g/dL Normal 30.5-36.0 [facility] Comment on above: Performed By: #### P T, PTT, AMYL, CMP, LIPA, PHOS ####[place] [address]#### TRANSF ####[place] [address] MCV 86.7 fL Normal 80.0-100.0 [facility] Comment on above: Performed By: #### P T, PTT, AMYL, CMP, LIPA, PHOS ####[place] [address]#### TRANSF ####[place] [address] Monocytes/100 leukocytes 8.3 % Normal [facility] Comment on above: Performed By: #### P T, PTT, AMYL, CMP, LIPA, PHOS ####[place] [address]#### TRANSF ####[place] [address] Neutrophils/100 WBC Auto (Bld) 67.6 % Normal [facility] Comment on above: Performed By: #### P T, PTT, AMYL, CMP, LIPA, PHOS ####[place] [address]#### TRANSF ####[place] [phone] Platelet mean volume (PMV) 9.5 fL Normal 9.0-12.7 [facility] Comment on above: Performed By: #### P T, PTT, AMYL, CMP, LIPA, PHOS ####[place] [address]#### TRANSF ####[place] [phone] Platelets 481 10*3/uL High 150-400 [facility] Comment on above: Performed By: #### P T, PTT, AMYL, CMP, LIPA, PHOS ####[place] [address]#### TRANSF ####[place] [phone] WBC (Leukocytes) 6.83 10*3/uL Normal 3.70-11.[address] [facility] Comment on above: Performed By: #### P T, PTT, AMYL, CMP, LIPA, PHOS ####[place] [address]#### TRANSF ####[place] [phone] Magnesiumon 08-26-2017 Magnesium 2.3 mg/dL Normal 1.7-2.6 [facility] Comment on above: Performed By: #### P T, PTT, AMYL, CMP, LIPA, PHOS ####[place] [address]#### TRANSF ####[place] [phone] NURSING PROGon 08-26-2017 NURSING PROG HNO ID: [id number] thor: Saima Kramer (Rn) Debra, RNService: (none)Author Type: Registered NurseType: Nursing Progress NoteFiled: 08/26/2017 7:20 PMNote Text: Nursing Progress NotePatient Name: Rocio Boudreaux: [id number] Location: [place] [address]/[id number] ____Daily Note:IR called and stated that they will not be able to do procedureon pt this evening. Text page to gen surg to make aware.1900: Spoke w/ SROC - full liquid diet ordered and NPO after midnight.This note was completed by: Saima Richardson, RN [facility] PROGRESSon 08-26-2017 PROGRESS HNO ID: [id number] thor: Michael Cedillo) AugustinService: General SurgeryAuthor Type: PhysicianType: Progress NotesFiled: 08/26/2017 8:48 PMNote Text:PROGRESS NOTES - SURGICAL SERVICESPATIENT NAME: Rocio Boudreaux: [id number] HISTORY OF PRESENT ILLNESS:No acute events overnight. [...] tube cholangiogramToms MD Froilan, MPH, FACSGeneral/Trauma/HPB SurgeryPager: [phone] Cell: [phone] 2017 Normal [facility] Phosphoruson 08-26-2017 Phosphate 3.4 mg/dL Normal 2.5-4.5 [facility] Comment on above: Performed By: #### P T, PTT, AMYL, CMP, LIPA, PHOS ####[place] [address] [place], [place] [phone]#### TRANSF ####[facility] [address] [place], [place] [phone] ALLIED HEALTHon 08-25-2017 ALLIED HEALTH HNO ID: [id number] thor: Angelita Rosas (Chaplain)Service: Spiritual CareAuthor Type: ChaplainType: Allied HealthFiled: 08/25/2017 10:39 AMNote Text:SPIRITUAL CARE PROGRESS NOTESERVICE DATE: 08/25/2017SERVICE TIME: 10:40amSaw pt on PK3C per Spiritual Care referral. Pt's yarsani is listed as None in his EMR. [...] contact the Spiritual Care Department: Please call [phone].SIGNATURE: Chaplain Tasia PATIENT NAME: Rocio JacksonDATE: August 25, 2017 : 10:38 AM PAGER/CONTACT #: [phone] [facility] Basic Metabolic Panlon 08-25 Anion gap 11 mmol/L Normal 9-18 [facility] Comment on above: Performed By: #### P T, PTT, AMYL, CMP, LIPA, PHOS ####[facility] [place], [place] [phone]#### TRANSF ####[facility] [address] [place], [place] [phone] Calcium 8.4 mg/dL Low 8.5-10.5 [facility] Comment on above: Performed By: #### P T, PTT, AMYL, CMP, LIPA, PHOS ####[place] [address]#### TRANSF ####[place] [phone] Chloride 101 mmol/L Normal 98-110 [facility] Comment on above: Performed By: #### P T, PTT, AMYL, CMP, LIPA, PHOS ####[place] [address]#### TRANSF ####[place] [address] CO2 26 mmol/L Normal 23-32 [facility] Comment on above: Performed By: #### P T, PTT, AMYL, CMP, LIPA, PHOS ####[place] [address]#### TRANSF ####[place] [address] Creatinine 0.62 mg/dL Low 0.70-1.40 [facility] Comment on above: Performed By: #### P T, PTT, AMYL, CMP, LIPA, PHOS ####[place] [address]#### TRANSF ####[place] [address] eGFR (non-black) mL/min/{1.73_m2} Normal >60 [facility] Comment on above: Performed By: #### P T, PTT, AMYL, CMP, LIPA, PHOS ####[place] [address]#### TRANSF ####[place] [address] Glucose mass conc 118 mg/dL High 65-100 [facility] Comment on above: Performed By: #### P T, PTT, AMYL, CMP, LIPA, PHOS ####[place] [address]#### TRANSF ####[place] [address] Potassium molar conc 4.5 mmol/L Normal 3.5-5.0 [facility] Comment on above: Performed By: #### P T, PTT, AMYL, CMP, LIPA, PHOS ####[place] [address]#### TRANSF ####[place] [address] Sodium 138 mmol/L Normal 135-146 [facility] Comment on above: Performed By: #### P T, PTT, AMYL, CMP, LIPA, PHOS ####[place] [address]#### TRANSF ####[place] [phone] Urea nitrogen 10 mg/dL Normal 10-25 [facility] Comment on above: Performed By: #### P T, PTT, AMYL, CMP, LIPA, PHOS ####[place] [address]#### TRANSF ####[place] [phone] CASE MANAGEMon 08-25-2017 CASE MANAGEM HNO ID: [id number] thor: Alexandrea (Rn) Thom, MOUSTAPHAervice: Care ManagementAuthor Type: Registered NurseType: Care Mgt Progress NoteFiled: 08/25/2017 12:06 PMNote Text:MULTIDISCIPLINARY ROUNDSSERVICE DATE: 08/25/2017 ADMISSION DATE: 08/13/2017SERVICE TIME: 12:03 PM ANTICIPATED D/C DATE: 2-3 daysProblem List:ACTIVE PROBLEM LISTDuodenal ObstructionSevere Protein-Calorie Malnutrition (Hcc)Attendees Present at Rounds:Stage Set Designer: Chantelleurse Leasing Consultant/Travel Registered Nurse Oncology Nurse Leasing Consultant: Taylorocial Worker: Roderick Nurse: Yohannes Discussed on Rounds:DietDischarge NeedsPlan of CareAnticipated Discharge Disposition:Home with Home Health Care vs SNFper discussion with Gerri Espinoza CNP.plan for Cholangiogram tomorrow.Last Vitals: BP 113/66 Pulse 72 Temp (Src) 98.2 (Oral) Resp 16 Ht5' 8 (1.73m) Wt 192 lb (87.1kg) SpO2 98% BMI 29.20 kg/(m2).Pt is accepted at [facility] in [place].Pt also has been [facility] by [facility].Nursing: Fluid/Electrolyte Goal Target Achievement Date: 08/26/17Mobility Goal Target Achievement Date: 08/26/17Pain Goal Target Achievement Date: 08/26/17DOCUMENTED BY: Alexandrea Tomas RN PATIENT NAME: Rociomarisa TorresschDATE: August 25, 2017 : 12:03 PM CSN: [id number] Normal [facility] CBC and Differentialon 08-25 Abs Baso <0.03 Normal <0.11 [facility] Comment on above: Performed By: #### P T, PTT, AMYL, CMP, LIPA, PHOS ####[place] [address]#### TRANSF ####[place] [address] Abs Elmore 0.46 k/uL Normal <0.87 [facility] Comment on above: Performed By: #### P T, PTT, AMYL, CMP, LIPA, PHOS ####[place] [phone]#### TRANSF ####[place] [address] Abs Neut 3.52 k/uL Normal 1.45-7.50 [facility] Comment on above: Performed By: #### P T, PTT, AMYL, CMP, LIPA, PHOS ####[place] [address]#### TRANSF ####[place] [address] Basophils/100 WBC Auto (Bld) 0.4 % Normal [facility] Comment on above: Performed By: #### P T, PTT, AMYL, CMP, LIPA, PHOS ####[place] [address]#### TRANSF ####[place] [address] DTYPE Auto Diff Normal [facility] Comment on above: Performed By: #### P T, PTT, AMYL, CMP, LIPA, PHOS ####[place] [address]#### TRANSF ####[place] [address] Eosinophils 0.21 10*3/uL Normal <0.46 [facility] Comment on above: Performed By: #### P T, PTT, AMYL, CMP, LIPA, PHOS ####[place] [address]#### TRANSF ####[place] [address] Eosinophils/100 leukocytes 3.7 % Normal [facility] Comment on above: Performed By: #### P T, PTT, AMYL, CMP, LIPA, PHOS ####[place] [address]#### TRANSF ####[place] [address] Erythrocyte distribution width Auto Ratio (RBC) 15.8 % High 11.5-15.0 [facility] Comment on above: Performed By: #### P T, PTT, AMYL, CMP, LIPA, PHOS ####[place] [address]#### TRANSF ####[place] [address] Erythrocytes (RBC) 2.91 10*6/uL Low 4.20-6.00 [facility] Comment on above: Performed By: #### P T, PTT, AMYL, CMP, LIPA, PHOS ####[place] [address]#### TRANSF ####[place] [phone] Hematocrit (HCT) 25.6 % Low 39.0-51.0 [facility] Comment on above: Performed By: #### P T, PTT, AMYL, CMP, LIPA, PHOS ####[place] [address]#### TRANSF ####[place] [phone] Hemoglobin mass conc (Bld) 8.0 g/dL Low 13.0-17.0 [facility] Comment on above: Performed By: #### P T, PTT, AMYL, CMP, LIPA, PHOS ####[place] [address]#### TRANSF ####[place] [phone] Lymphocytes 1.45 10*3/uL Normal 1.00-4.00 [facility] Comment on above: Performed By: #### P T, PTT, AMYL, CMP, LIPA, PHOS ####[place] [address]#### TRANSF ####[place] [phone] Lymphocytes/100 leukocytes 25.6 % Normal [facility] Comment on above: Performed By: #### P T, PTT, AMYL, CMP, LIPA, PHOS ####[place] [address]#### TRANSF ####[place] [address] MCH 27.5 pG Normal 26.0-34.0 [facility] Comment on above: Performed By: #### P T, PTT, AMYL, CMP, LIPA, PHOS ####[place] [address]#### TRANSF ####[place] [address] MCHC mass conc (RBC) 31.3 g/dL Normal 30.5-36.0 [facility] Comment on above: Performed By: #### P T, PTT, AMYL, CMP, LIPA, PHOS ####[place] [address]#### TRANSF ####[place] [address] MCV 88.0 fL Normal 80.0-100.0 [facility] Comment on above: Performed By: #### P T, PTT, AMYL, CMP, LIPA, PHOS ####[place] [address]#### TRANSF ####[place] [address] Monocytes/100 leukocytes 8.1 % Normal [facility] Comment on above: Performed By: #### P T, PTT, AMYL, CMP, LIPA, PHOS ####[place] [address]#### TRANSF ####[place] [address] Neutrophils/100 WBC Auto (Bld) 62.2 % Normal [facility] Comment on above: Performed By: #### P T, PTT, AMYL, CMP, LIPA, PHOS ####[place] [address]#### TRANSF ####[place] [phone] Platelet mean volume (PMV) 10.1 fL Normal 9.0-12.7 [facility] Comment on above: Performed By: #### P T, PTT, AMYL, CMP, LIPA, PHOS ####[place] [address]#### TRANSF ####[phone] Platelets 444 10*3/uL High 150-400 [facility] Comment on above: Performed By: #### P T, PTT, AMYL, CMP, LIPA, PHOS ####[place] [address]#### TRANSF ####[place] [phone] WBC (Leukocytes) 5.66 10*3/uL Normal 3.70-11.[address] [facility] Comment on above: Performed By: #### P T, PTT, AMYL, CMP, LIPA, PHOS ####[place] [address]#### TRANSF ####[phone] Magnesiumon 08-25-2017 Magnesium 2.3 mg/dL Normal 1.7-2.6 [facility] Comment on above: Performed By: #### P T, PTT, AMYL, CMP, LIPA, PHOS ####[place] [address]#### TRANSF ####[place] [phone] NURSING PROGon 08-25-2017 NURSING PROG HNO ID: [id number] thor: Shavonne KenRn) Tabatha, RNService: NursingAuthor Type: Registered NurseType: Nursing Progress NoteFiled: 08/25/2017 2:30 PMNote Text: Nursing Progress NotePatient Name: Rocio Boudreaux: [id number] Location: [place] [address]/[id number] ____Daily Note:Pt A+Ox3, speech clear, flat affect. Skin pale and slightly jaundiced.NSR with occasional PVC's on environmental monitoring specialist. Abdomen soft, bowel soundspresent, +Flatus and +BM, [...] note was completed by: Shavonne Mays RN [facility] NUTRITIONon 08-25-2017 NUTRITION HNO ID: [id number] thor: Alise Segura) BarsaService: Nutrition TherapyAuthor Type: [...] Weight: 87?kgResting Metabolic Rate: 1661Estimated kilocalorie needs: 4924-7318?kilocalories determined by25-30?kcal/kgEstimated protein needs:113 - ?130?grams determined [...] kg (192 lb) SpO2 97% BMI 29.19 kg/e1Njvoaa Labs [id number] 118*BUN 10CREAT 0.62*NA 138K 4.5CHLOR 101CO2 26HB [...] 5,000 Units SUBCUTANEOUS q 8 Hphenol 1 [place] (CHLORASEPTIC) 1 [place] MUCOUS MEMBRANE (TOPICAL MOUTH ANDTHROAT) q 2 [...] 1350 1860 375 855 Output (ml) 2219 1236 1424 1930 629 Net (ml) -2657 -080 431 -2963 226Surgical Incision 08/14/17 0103 Abdomen - Laparoscopy [...] assistance and weekends please page theGroup Pager [phone] [facility] PROGRESSon 08-25-2017 PROGRESS HNO ID: [id number] thor: Michael Cedillo) AugustinService: General SurgeryAuthor Type: PhysicianType: Progress NotesFiled: 08/25/2017 11:42 AMNote Text:GENERAL SURGERY INPATIENT PROGRESS NOTENAME: Rocio JacksonMRN: [id number] 2017 7:52 AMASSESSMENT AND PLAN:Rocio Jackson is [...] kg (192 lb) SpO2 97% BMI 29.19 kg/y8Zffgou: Breathing comfortably on RA, speaking in full sentencesAbdominal examination: Abdomen soft, non-distended, mildly tenderTubes/Drains/Stoma: PTHC drain in place, serosanguineous outputFlatus/Bowel movement: Bowel function +Nausea/Emesis: NegativePain Control: IV dilaudid PO tylenolRenal: UOP adequateAntibiotics: AugmentinPending labs/results: None. Culture grew streptococcus mutansDate 08/23/17 07 - 08/24/17 0659 08/24/17 07 - 08/25/17 0659Shift 2063-4248 6520-7227 8422-0810 24 Hour Total 0848-4425 6429-32763751-8193 24 Hour TotalINTAKE PO 1080 507 29 3959 PO 600 732 26 0062 Supplements (mL) 480 240 720 Shift Total 1080 720 60 1860OUTPUT Urine 3 101 104 0 0 Void (ml) 100 100 0 0 Urine Incontinence/Not Saved 1 x 1 x Urine Not Saved 3 1 4 Emesis 0 0 Emesis (ml) 0 0 Tubes 625 063 862 8124 300 300 Drain/Tube Output (Drain/Tube 08/15/17 1530 Assessment Right UpperAbdomen) 50 50 0 0 Drain/Tube Output (Drain/Tube 08/19/17 1443 Biliary Right Lateral;LowerQuadrant Abdomen) 625 675 559 3019 300 300 # of BMs Number of BMs 2 x 1 x 1 x 4 x 1 x 1 x Shift Total 625 295 955 6524 300 300Weight (kg) 87.1 87.1 87.1 87.1 [...] Ann Thao MD7:52 AM August 25, 2017PAGER: [phone](After 6pm and weekends please contact Surgery oncall [...] cap Noah Jolley MD, MPH, FACSGeneral/Trauma/HPB SurgeryPager: [phone] Cell: [phone] 2017 Normal [facility] Phosphoruson 08-25-2017 Phosphate 3.0 mg/dL Normal 2.5-4.5 [facility] Comment on above: Performed By: #### P T, PTT, AMYL, CMP, LIPA, PHOS ####[facility] [place], [place] [phone]#### TRANSF ####[facility] [place], [place] [phone] THERAPY NTon 08-25-2017 THERAPY NT HNO ID: [id number] thor: Sujata (Pt) PapcunService: Physical TherapyAuthor Type: Physical TherapistType: Therapy (PT/OT/Speech/Resp)Filed: 08/25/2017 12:18 PMNote Text:Physical Therapy TreatmentSERVICE DATE: 08/25/2017SERVICE TIME: 1143 to 1206ROOM: [place] [address] ( OPERATING ROOM)Recommended Discharge Disposition: Home PTRecommended [...] Reduced mobility-other;Muscle Weakness (generalized)Interventions Provided: Therapeutic Exercise (47449);Gait Training (24155)Therapeutic Exercise (90797) Treatment Minutes: 121 unitSkilled Intervention(s): Instruction in therapeutic exercise BLE seatedfor strengthening, cues for tempo.Gait Training (99903) Treatment Minutes: 111 unitSkilled Intervention(s): Instruction in [...] 25, 2017 : 12:16 PM PAGER/CONTACT #: [phone] [facility] ALLIED HEALTHon 08-24-2017 ALLIED HEALTH HNO ID: [id number] thor: Albert Sutherland: (none)Author Type: (none)Type: Allied HealthFiled: 08/24/2017 6:37 PMNote Text: Radiology Service Progress NotePATIENT NAME: Rocio JacksonMRN: [id number] OF SERVICE: August 24, 2017TIME: 6:37 PMPATIENT IDENTITY VERIFICATION COMPLETED USING TWO (2) METHODS: Patientconfirmed name verbally and ID band matches..PATIENT GENDER DATA: MalePATIENT RELEVANT IMPLANT DATA REVIEWED: Not ApplicableRADIOLOGY DEPARTMENT: CT; Exam(s) Completed: Abdomen/PelvisPERIPHERAL IV DATA: Inpatient: see LDA documentationSIGNED BY: Albert Vaughan 2017 6:37 PM [facility] CASE MANAGEMon 08-24-2017 CASE MANAGEM HNO ID: [id number] thor: Alexandrea (Rn) Thom, RNService: Care ManagementAuthor [...] he feels weeker, he requests SNF in [facility],A list was given to pt.PT OT updates are needed.A Precert is needed.Pt is on Full Liquid dietSIGNATURE: Alexandrea Tomas RN PATIENT NAME: Rocio TorresschDATE: August 24, 2017 : 10:39 AM PAGER/CONTACT #: [phone] Normal [facility] CBC and Differentialon 08-24 Abs Baso <0.03 Normal <0.11 [facility] Comment on above: Performed By: #### P T, PTT, AMYL, CMP, LIPA, PHOS ####[place] [address]#### TRANSF ####[place] [address] Abs Elmore 0.51 k/uL Normal <0.87 [facility] Comment on above: Performed By: #### P T, PTT, AMYL, CMP, LIPA, PHOS ####[place] [address]#### TRANSF ####[place] [address] Abs Neut 3.42 k/uL Normal 1.45-7.50 [facility] Comment on above: Performed By: #### P T, PTT, AMYL, CMP, LIPA, PHOS ####[address]#### TRANSF ####[place] [address] [place] [phone] Basophils/100 WBC Auto (Bld) 0.4 % Normal [facility] Comment on above: Performed By: #### P T, PTT, AMYL, CMP, LIPA, PHOS ####[place] [address]#### TRANSF ####[address] [place] [phone] DTYPE Auto Diff Normal [facility] Comment on above: Performed By: #### P T, PTT, AMYL, CMP, LIPA, PHOS ####[place] [address]#### TRANSF ####[place] [address] Eosinophils 0.17 10*3/uL Normal <0.46 [facility] Comment on above: Performed By: #### P T, PTT, AMYL, CMP, LIPA, PHOS ####[place] [address]#### TRANSF ####[place] [address] Eosinophils/100 leukocytes 3.1 % Normal [facility] Comment on above: Performed By: #### P T, PTT, AMYL, CMP, LIPA, PHOS ####[place] [address]#### TRANSF ####[place] [address] Erythrocyte distribution width Auto Ratio (RBC) 16.1 % High 11.5-15.0 [facility] Comment on above: Performed By: #### P T, PTT, AMYL, CMP, LIPA, PHOS ####[place] [address]#### TRANSF ####[place] [address] Erythrocytes (RBC) 2.87 10*6/uL Low 4.20-6.00 [facility] Comment on above: Performed By: #### P T, PTT, AMYL, CMP, LIPA, PHOS ####[place] [address]#### TRANSF ####[place] [address] Hematocrit (HCT) 25.2 % Low 39.0-51.0 [facility] Comment on above: Performed By: #### P T, PTT, AMYL, CMP, LIPA, PHOS ####[place] [address]#### TRANSF ####[place] [address] Hemoglobin mass conc (Bld) 7.9 g/dL Low 13.0-17.0 [facility] Comment on above: Performed By: #### P T, PTT, AMYL, CMP, LIPA, PHOS ####[place] [address]#### TRANSF ####[place] [address] Lymphocytes 1.36 10*3/uL Normal 1.00-4.00 [facility] Comment on above: Performed By: #### P T, PTT, AMYL, CMP, LIPA, PHOS ####[place] [address]#### TRANSF ####[place] [address] Lymphocytes/100 leukocytes 24.8 % Normal [facility] Comment on above: Performed By: #### P T, PTT, AMYL, CMP, LIPA, PHOS ####[place] [address]#### TRANSF ####[place] [address] MCH 27.5 pG Normal 26.0-34.0 [facility] Comment on above: Performed By: #### P T, PTT, AMYL, CMP, LIPA, PHOS ####[place] [address]#### TRANSF ####[place] [address] MCHC mass conc (RBC) 31.3 g/dL Normal 30.5-36.0 [facility] Comment on above: Performed By: #### P T, PTT, AMYL, CMP, LIPA, PHOS ####[place] [address]#### TRANSF ####[place] [address] MCV 87.8 fL Normal 80.0-100.0 [facility] Comment on above: Performed By: #### P T, PTT, AMYL, CMP, LIPA, PHOS ####[place] [address]#### TRANSF ####[place] [address] Monocytes/100 leukocytes 9.3 % Normal [facility] Comment on above: Performed By: #### P T, PTT, AMYL, CMP, LIPA, PHOS ####[place] [address]#### TRANSF ####[place] [address] Neutrophils/100 WBC Auto (Bld) 62.4 % Normal [facility] Comment on above: Performed By: #### P T, PTT, AMYL, CMP, LIPA, PHOS ####[place] [address]#### TRANSF ####[place] [phone] Platelet mean volume (PMV) 9.6 fL Normal 9.0-12.7 [facility] Comment on above: Performed By: #### P T, PTT, AMYL, CMP, LIPA, PHOS ####[place] [address]#### TRANSF ####[place] [phone] Platelets 393 10*3/uL Normal 150-400 [facility] Comment on above: Performed By: #### P T, PTT, AMYL, CMP, LIPA, PHOS ####[place] [address]#### TRANSF ####[place] [phone] WBC (Leukocytes) 5.48 10*3/uL Normal 3.70-11.[address] [facility] Comment on above: Performed By: #### P T, PTT, AMYL, CMP, LIPA, PHOS ####[address]#### TRANSF ####[place] [phone] CT ABD/PEL WO IVCONon 2017 CT ABD/PEL [...] DRAIN PLACEMENT.NEAR COMPLETE RESOLUTION OF PARA/SUBHEPATIC FLUID COLLECTION.Sleep Manager: NII Transcribe Date/Time: Aug 25 2017 8:07ADictated by : ASHELY MORALES MDThis examination was interpreted and the report reviewed and electronically signed by: ASHLEY MORALES MD on Aug 25 2017 8:40AM [id number] Normal [facility] Magnesiumon 08-24-2017 Magnesium 2.3 mg/dL Normal 1.7-2.6 [facility] Comment on above: Performed By: #### P T, PTT, AMYL, CMP, LIPA, PHOS ####[facility] [place], [place] [phone]#### TRANSF ####[facility] [place], [place] [phone] NURSING PROGon 08-24-2017 NURSING PROG HNO ID: [id number] thor: Shavonne (Rn) Tabatha, RNService: NursingAuthor Type: Registered NurseType: Nursing Progress NoteFiled: 08/24/2017 4:58 PMNote Text: Nursing Progress NotePatient Name: Rocio Boudreaux: [id number] Location: [place] [address]/[id number] ____Daily Note:Pt A+Ox3, flat affect, quiet. Speech clear. Skin pale and slightlyjaundiced. NSR on environmental monitoring specialist. Abdomen soft and tender, 3 lap sitesOTA [...] note was completed by: Shavonne Mays, RN [facility] PROGRESSon 08-24-2017 PROGRESS HNO ID: [id number] thor: Michael Cedillo) AugustinService: General SurgeryAuthor Type: PhysicianType: Progress NotesFiled: 08/24/2017 4:45 PMNote Text:GENERAL SURGERY INPATIENT PROGRESS NOTENAME: Rocio JacksonN: [id number] 2017 8:43 AMASSESSMENT AND PLAN:Rocio Jackson is [...] kg (192 lb) SpO2 97% BMI 29.19 kg/w7Kwykzh: Breathing comfortably on RA, speaking in full sentencesAbdominal examination: Abdomen soft, non-distended, mildly tenderTubes/Drains/Stoma: PTHC drain in place, serosanguineous output, 1275mlFlatus/Bowel movement: Bowel function +Nausea/Emesis: NegativePain Control: IV dilaudid PO tylenolRenal: UOP adequateAntibiotics: AugmentinPending labs/results: None. Culture grew streptococcus mutansDate 08/23/17 07 - 08/24/17 0659 08/24/17 0700 - 08/25/17 0659Shift 0830-8515 0845-2202 0645-5132 24 Hour Total 7873-0379 0583-45742869-7387 24 Hour TotalINTAKE PO 1080 298 05 5936 PO 600 096 70 6683 Supplements (mL) 480 240 720 Shift Total 1080 720 60 1860OUTPUT Urine 3 101 104 0 0 Void (ml) 100 100 0 0 Urine Incontinence/Not Saved 1 x 1 x Urine Not Saved 3 1 4 Emesis 0 0 Emesis (ml) 0 0 Tubes 625 167 376 0020 300 300 Drain/Tube Output (Drain/Tube 08/15/17 1530 Assessment Right UpperAbdomen) 50 50 0 0 Drain/Tube Output (Drain/Tube 08/19/17 1443 Biliary Right Lateral;LowerQuadrant Abdomen) 625 517 005 9296 300 300 # of BMs Number of BMs 2 x 1 x 1 x 4 x 1 x 1 x Shift Total 625 537 944 2839 300 300Weight (kg) 87.1 87.1 87.1 87.1 87.1 87.1 87.1 87.1Recent Labs 08/24/1803/971570 02/23/336187BHB 5.48 -- -- 5.23 5.64HB 7.9* -- [...] and changes will bemade where applicable.Serena Trent MDGenemercy health st. [facility] Surgery, PGY - 1Pager #: [phone](After 6pm and weekends please contact Surgery oncall team)STAFF NOTEI have independently seen and examined the patient today. I haveindependently reviewed all the imaging and the labs. I agree with keycomponents of the resident's note above. Care plan and decision making hasbeen discussed.Doing well, no complaintsWill get CT to assess status of collectionsPTC cholangiogram to look for active leaksToms MD Froilan, MPH, FACSGeneral/Trauma/HPB SurgeryPager: [phone] Cell: [phone] 2017 Normal [facility] Phosphoruson 08-24-2017 Phosphate 2.6 mg/dL Normal 2.5-4.5 [facility] Comment on above: Performed By: #### P T, PTT, AMYL, CMP, LIPA, PHOS ####[facility] [place], [place] [phone]#### TRANSF ####[facility] [address] [place], [place] [phone] THERAPY NTon 08-24-2017 THERAPY NT HNO ID: [id number] thor: Mandi (Ot) GarnekService: Occupational TherapyAuthor Type: Occupational TherapistType: Therapy (PT/OT/Speech/Resp)Filed: 08/24/2017 1:30 PMNote Text:Occupational Therapy TreatmentSERVICE DATE: 08/24/2017SERVICE TIME: 1245 to 1300ROOM: -[id number]-46 ( OPERATING ROOM)Admit with Emesis X 1 Month, Abdominal Pain, Partial Duodenal Obstructionand Obstructive Jaundice, Abdominal Abscess, S/P CT Guided AbscessDrainage 08/15/17, S/P Recent Cholecystectomy 08/11/17, and ERCP 08/13/17?Recommended Discharge Disposition: Subacute/SNFRecommended Discharge Disposition Comments: ([place]in [place])Anticipated Discharge Needs: Physical Assist at HomePhysical Assist at Home for: Ambulation;Cleaning;Laundry; Meals;MedicationManagement;S tairs;Self Care;Shopping;Transportation Recommended Discharge Equipment: Elastic Shoe Laces;Grab Bars-Shower;HandHeld Shower;Long Handled Shoe Horn;Long Handled Sponge;WheeledWalker;Advisor Consultant ;Sock Aide;Shower ChairOT Recommendations to Nursing: OOB [...] History Relevantto Therapy Includes: DM, Glaucoma, HTN, [place]. For Complete Past MedicalHistory Please Refer to [...] dailyliving (ADL);Muscle Weakness (generalized)Interventions Provided: Therapeutic Activity (08848)Therapeutic Activity (16568) Treatment Minutes: 151 unitSkilled Intervention(s): Instructed patient [...] August 24, 2017 : 1:28 PM PAGER: [phone] Normal [facility] THERAPY NT HNO ID: [id number] thor: Adela (Special Librarian) Carlin: Physical TherapyAuthor Type: Physical Therapy AssistantType: Therapy (PT/OT/Speech/Resp)Filed: 08/24/2017 10:53 AMNote Text: -Attestation signed by Tonia Schmitz at 08/24/2017 12:43 PMI reviewed and agree with the documentation corresponding to this therapyvisit.SIGNATURE: Tonia Schmitz, PTDATE: August 24, 2017TIME: 12:43 PM Ph ysical Therapy TreatmentSERVICE DATE: 08/24/2017SERVICE TIME: 1015 to 1040RO[facility] ( [facility])Abdominal abscess; S/ P cholestectomy [...] Weakness (generalized);General symptoms andsigns-otherInterventions Provided: Therapeutic Exercise (27232);Gait Training (61340)Therapeutic Exercise (94681) Treatment Minutes: 101 unitSkilled Intervention(s): Instruction in therapeutic exercise for B LEstrengthening, balanceVerbal and tactile cuing provided for pace and performance; rest breaksprovided as neededGait Training (20526) Treatment Minutes: 151 unitSkilled Intervention(s): Instruction in [...] 24, 2017 : 10:46 AM PAGER/CONTACT #: [phone] [facility] Basic Metabolic Panlon 08-23 Anion gap 10 mmol/L Normal 9-18 [facility] Comment on above: Performed By: #### P T, PTT, AMYL, CMP, LIPA, PHOS ####[place] [address]#### TRANSF ####[place] [address] Calcium 7.7 mg/dL Low 8.5-10.5 [facility] Comment on above: Performed By: #### P T, PTT, AMYL, CMP, LIPA, PHOS ####[place] [address]#### TRANSF ####[place] [address] Chloride 104 mmol/L Normal 98-110 [facility] Comment on above: Performed By: #### P T, PTT, AMYL, CMP, LIPA, PHOS ####[place] [address]#### TRANSF ####[place] [address] CO2 25 mmol/L Normal 23-32 [facility] Comment on above: Performed By: #### P T, PTT, AMYL, CMP, LIPA, PHOS ####[place] [address]#### TRANSF ####[place] [address] Creatinine 0.55 mg/dL Low 0.70-1.40 [facility] Comment on above: Performed By: #### P T, PTT, AMYL, CMP, LIPA, PHOS ####[place] [address]#### TRANSF ####[place] [address] eGFR (non-black) mL/min/{1.73_m2} Normal >60 [facility] Comment on above: Performed By: #### P T, PTT, AMYL, CMP, LIPA, PHOS ####[place] [address]#### TRANSF ####[place] [phone] Glucose mass conc 123 mg/dL High 65-100 [facility] Comment on above: Performed By: #### P T, PTT, AMYL, CMP, LIPA, PHOS ####[place] [address]#### TRANSF ####[place] [address] Potassium molar conc 4.1 mmol/L Normal 3.5-5.0 [facility] Comment on above: Performed By: #### P T, PTT, AMYL, CMP, LIPA, PHOS ####[place] [address]#### TRANSF ####[place] [address] Sodium 139 mmol/L Normal 135-146 [facility] Comment on above: Performed By: #### P T, PTT, AMYL, CMP, LIPA, PHOS ####[place] [address]#### TRANSF ####[place] [address] Urea nitrogen 10 mg/dL Normal 10-25 [facility] Comment on above: Performed By: #### P T, PTT, AMYL, CMP, LIPA, PHOS ####[address]#### TRANSF ####[phone] Magnesiumon 08-23-2017 Magnesium 2.3 mg/dL Normal 1.7-2.6 [facility] Comment on above: Performed By: #### P T, PTT, AMYL, CMP, LIPA, PHOS ####[facility] [place], [place] [phone]#### TRANSF ####[facility] [address] [place], [place] [phone] PROGRESSon 08-23-2017 PROGRESS HNO ID: [id number] thor: Jose Damon: General SurgeryAuthor Type: PhysicianType: Progress NotesFiled: 08/23/2017 1:57 PMNote Text:PROGRESS NOTES - SURGICAL SERVICESPATIENT NAME: Rocio JacksonMarisa: [id number] HISTORY OF PRESENT ILLNESS:No acute events overnight. [...] stable.Jose Manning MDFebruary 2017 1:57 PM Normal [facility] Phosphoruson 08-23-2017 Phosphate 2.4 mg/dL Low 2.5-4.5 [facility] Comment on above: Performed By: #### P T, PTT, AMYL, CMP, LIPA, PHOS ####[facility] [place] [phone]#### TRANSF ####[facility] [address] [place] [phone] Basic Metabolic Panlon 08-22 Anion gap 9 mmol/L Normal 9-18 [facility] Comment on above: Performed By: #### P T, PTT, AMYL, CMP, LIPA, PHOS ####[place] [address]#### TRANSF ####[place] [address] Calcium 7.7 mg/dL Low 8.5-10.5 [facility] Comment on above: Performed By: #### P T, PTT, AMYL, CMP, LIPA, PHOS ####[place] [address]#### TRANSF ####[place] [address] Chloride 105 mmol/L Normal 98-110 [facility] Comment on above: Performed By: #### P T, PTT, AMYL, CMP, LIPA, PHOS ####[place] [address]#### TRANSF ####[place] [address] CO2 25 mmol/L Normal 23-32 [facility] Comment on above: Performed By: #### P T, PTT, AMYL, CMP, LIPA, PHOS ####[place] [address]#### TRANSF ####[place] [address] Creatinine 0.57 mg/dL Low 0.70-1.40 [facility] Comment on above: Performed By: #### P T, PTT, AMYL, CMP, LIPA, PHOS ####[place] [address]#### TRANSF ####[address], [place] [phone] eGFR (non-black) mL/min/{1.73_m2} Normal >60 [facility] Comment on above: Performed By: #### P T, PTT, AMYL, CMP, LIPA, PHOS ####[place] [address]446[address]#### TRANSF ####[place] [address] Glucose mass conc 111 mg/dL High 65-100 [facility] Comment on above: Performed By: #### P T, PTT, AMYL, CMP, LIPA, PHOS ####[place] [address]#### TRANSF ####[place] [address] Potassium molar conc 3.7 mmol/L Normal 3.5-5.0 [facility] Comment on above: Performed By: #### P T, PTT, AMYL, CMP, LIPA, PHOS ####[place] [address]#### TRANSF ####[place] [address] Sodium 139 mmol/L Normal 135-146 [facility] Comment on above: Performed By: #### P T, PTT, AMYL, CMP, LIPA, PHOS ####[place] [address]#### TRANSF ####[place] [address] Urea nitrogen 8 mg/dL Low 10-25 [facility] Comment on above: Performed By: #### P T, PTT, AMYL, CMP, LIPA, PHOS ####[address]#### TRANSF ####[place] [address] CBC and Differentialon 08-22 Abs Baso <0.03 Normal <0.11 [facility] Comment on above: Performed By: #### P T, PTT, AMYL, CMP, LIPA, PHOS ####[place] [address]#### TRANSF ####[address] [place] [phone] Abs Elmore 0.41 k/uL Normal <0.87 [facility] Comment on above: Performed By: #### P T, PTT, AMYL, CMP, LIPA, PHOS ####[place] [address]#### TRANSF ####[place] [address] Abs Neut 3.57 k/uL Normal 1.45-7.50 [facility] Comment on above: Performed By: #### P T, PTT, AMYL, CMP, LIPA, PHOS ####[place] [address]#### TRANSF ####[place] [address] Basophils/100 WBC Auto (Bld) 0.2 % Normal [facility] Comment on above: Performed By: #### P T, PTT, AMYL, CMP, LIPA, PHOS ####[place] [address]#### TRANSF ####[place] [address] DTYPE Auto Diff Normal [facility] Comment on above: Performed By: #### P T, PTT, AMYL, CMP, LIPA, PHOS ####[place] [address]#### TRANSF ####[address] [place] [phone] Eosinophils 0.15 10*3/uL Normal <0.46 [facility] Comment on above: Performed By: #### P T, PTT, AMYL, CMP, LIPA, PHOS ####[place] [address]#### TRANSF ####[address] [place] [phone] Eosinophils/100 leukocytes 2.9 % Normal [facility] Comment on above: Performed By: #### P T, PTT, AMYL, CMP, LIPA, PHOS ####[place] [address]#### TRANSF ####[place] [address] Erythrocyte distribution width Auto Ratio (RBC) 16.1 % High 11.5-15.0 [facility] Comment on above: Performed By: #### P T, PTT, AMYL, CMP, LIPA, PHOS ####[place] [address]#### TRANSF ####[place] [address] Erythrocytes (RBC) 2.90 10*6/uL Low 4.20-6.00 [facility] Comment on above: Performed By: #### P T, PTT, AMYL, CMP, LIPA, PHOS ####[place] [address]#### TRANSF ####[place] [address] Hematocrit (HCT) 25.0 % Low 39.0-51.0 [facility] Comment on above: Performed By: #### P T, PTT, AMYL, CMP, LIPA, PHOS ####[place] [id number]#### TRANSF ####[place] [phone] Hemoglobin mass conc (Bld) 8.1 g/dL Low 13.0-17.0 [facility] Comment on above: Performed By: #### P T, PTT, AMYL, CMP, LIPA, PHOS ####[place] [address]#### TRANSF ####[place] [address] Lymphocytes 1.09 10*3/uL Normal 1.00-4.00 [facility] Comment on above: Performed By: #### P T, PTT, AMYL, CMP, LIPA, PHOS ####[place] [address]#### TRANSF ####[place] [address] Lymphocytes/100 leukocytes 20.8 % Normal [facility] Comment on above: Performed By: #### P T, PTT, AMYL, CMP, LIPA, PHOS ####[place] [address]#### TRANSF ####[place] [address] MCH 27.9 pG Normal 26.0-34.0 [facility] Comment on above: Performed By: #### P T, PTT, AMYL, CMP, LIPA, PHOS ####[address]#### TRANSF ####[place] [address] MCHC mass conc (RBC) 32.4 g/dL Normal 30.5-36.0 [facility] Comment on above: Performed By: #### P T, PTT, AMYL, CMP, LIPA, PHOS ####[place] [address]#### TRANSF ####[place] [phone] MCV 86.2 fL Normal 80.0-100.0 [facility] Comment on above: Performed By: #### P T, PTT, AMYL, CMP, LIPA, PHOS ####[place] [address]#### TRANSF ####[phone] Monocytes/100 leukocytes 7.8 % Normal [facility] Comment on above: Performed By: #### P T, PTT, AMYL, CMP, LIPA, PHOS ####[place] [address]#### TRANSF ####[place] [address] Neutrophils/100 WBC Auto (Bld) 68.3 % Normal [facility] Comment on above: Performed By: #### P T, PTT, AMYL, CMP, LIPA, PHOS ####[place] [address]#### TRANSF ####[place] [phone] Platelet mean volume (PMV) 9.9 fL Normal 9.0-12.7 [facility] Comment on above: Performed By: #### P T, PTT, AMYL, CMP, LIPA, PHOS ####[place] [address]#### TRANSF ####[place] [phone] Platelets 354 10*3/uL Normal 150-400 [facility] Comment on above: Performed By: #### P T, PTT, AMYL, CMP, LIPA, PHOS ####[facility] [place], [place] [phone]#### TRANSF ####[facility] [place], [place] [phone] WBC (Leukocytes) 5.23 10*3/uL Normal 3.70-11.[address] [facility] Comment on above: Performed By: #### P T, PTT, AMYL, CMP, LIPA, PHOS ####[facility] [place], [place] [phone]#### TRANSF ####[facility] [place], [place] [phone] CONSULT PROGon 08-22-2017 CONSULT PROG HNO ID: [id number] thor: Sabrina Michael) PineiroService: Cardiovascular DiseaseAuthor Type: [...] 5,000 Units SUBCUTANEOUS q 8 Hphenol 1 [place] (CHLORASEPTIC) 1 [place] MUCOUS MEMBRANE (TOPICAL MOUTH ANDTHROAT) q 2 [...] 2.9 2.9Liver Function, Amylase, AND LipaseRecent Labs [id number] 5.3*ALB 2.1*ALT 55*AST 42*ALKPHOS 241*TBILI 0.7SIGNATURE: Sabrina Arango, BJORN PATIENT NAME: Rocio TorresdonnyELBATE: August 22, 2017 : 2:37 PM PAGER/CONTACT #: Normal [facility] Magnesiumon 08-22-2017 Magnesium 2.3 mg/dL Normal 1.7-2.6 [facility] Comment on above: Performed By: #### P T, PTT, AMYL, CMP, LIPA, PHOS ####[facility] [place] [phone]#### TRANSF ####[facility] [address] [place], [place] [phone] NUTRITIONon 08-22-2017 NUTRITION HNO ID: [id number] thor: Alise Segura) BarsaService: Nutrition TherapyAuthor Type: [...] Weight: 87?kgResting Metabolic Rate: 1661Estimated kilocalorie needs: 8113-4137?kilocalories determined by25-28?kcal/kgEstimated protein needs:113 - ?130?grams determined [...] 5,000 Units SUBCUTANEOUS q 8 Hphenol 1 [place] (CHLORASEPTIC) 1 [place] MUCOUS MEMBRANE (TOPICAL MOUTH ANDTHROAT) q 2 [...] assistance and weekends please page theGroup Pager [phone] [facility] PROGRESSon 08-22-2017 PROGRESS HNO ID: [id number] thor: Jose Damon: General SurgeryAuthor Type: PhysicianType: Progress NotesFiled: 08/22/2017 3:31 PMNote Text:PROGRESS NOTES - SURGICAL SERVICESPATIENT NAME: Rocio JacksonMRN: [id number] HISTORY OF PRESENT ILLNESS:No acute events overnight. [...] (at the bulb suction) and cap to [facility]- for home drain management-Dispo: Continue inpatient admissionSIGNATURE: Kayleen Gonzales, MDDATE: August 22, 2017TIME: 8:18 AMPatient denies any abdominal pain. Still gets full with only liquids.ROMINA serosang, no bileOther biloma drain bile tinged, but SS.PTC increased output to 1.2L? only temporary success to duodenal dilation.Will watch PTC output.Possible DC soon.Jose Manning MDFeuary 2017 3:31 PM Normal [facility] Phosphoruson 08-22-2017 Phosphate 2.6 mg/dL Normal 2.5-4.5 [facility] Comment on above: Performed By: #### P T, PTT, AMYL, CMP, LIPA, PHOS ####[facility] [place], [place] [phone]#### TRANSF ####[facility] [address] [place], [place] [phone] CASE MANAGEMon 08-21-2017 CASE MANAGEM HNO ID: [id number] thor: Alexandrea (Kevin) Thom, RNService: Care ManagementAuthor Type: Registered NurseType: Care Mgt Progress NoteFiled: 08/21/2017 3:26 PMNote Text:CARE MANAGEMENT PROGRESS NOTESERVICE DATE: 08/21/2017SERVICE TIME: 10:02 AM LOS: 8 daysNeeds Prior to Discharge: To Be Determined;OT/PT EvaluationPer discussion with Dr Duffy.HHC [place] planned [place].PT OT evals are needed, pt may also need Home PT OT.[facility] accepted pt for drain care.Pt will stay with his sister. Briana Muller at [place].[address] [facility] [address]Bqdfmfrvn HHC was notified.[facility] for SN PT OT is planned.[facility] was updated.SIGNATURE: Alexandrea Tomas RN PATIENT NAME: Rocio FrischDATE: August 21, 2017 : 10:01 AM PAGER/CONTACT #: [phone] Normal [facility] CBC and Differentialon 08-21 Abs Baso <0.03 Normal <0.11 [facility] Comment on above: Performed By: #### P T, PTT, AMYL, CMP, LIPA, PHOS ####[place] [address]#### TRANSF ####[place] [phone] Abs Elmore 0.43 k/uL Normal <0.87 [facility] Comment on above: Performed By: #### P T, PTT, AMYL, CMP, LIPA, PHOS ####[place] [address]#### TRANSF ####[place] [phone] Abs Neut 4.17 k/uL Normal 1.45-7.50 [facility] Comment on above: Performed By: #### P T, PTT, AMYL, CMP, LIPA, PHOS ####[place] [address]#### TRANSF ####[place] [phone] Basophils/100 WBC Auto (Bld) 0.4 % [facility] Comment on above: Performed By: #### P T, PTT, AMYL, CMP, LIPA, PHOS ####[place] [address]#### TRANSF ####[place] [phone] DTYPE Auto Diff Normal [facility] Comment on above: Performed By: #### P T, PTT, AMYL, CMP, LIPA, PHOS ####[place] [address]#### TRANSF ####[place] [phone] Eosinophils 0.18 10*3/uL Normal <0.46 [facility] Comment on above: Performed By: #### P T, PTT, AMYL, CMP, LIPA, PHOS ####[place] [address]#### TRANSF ####[place] [address] Eosinophils/100 leukocytes 3.2 % Normal [facility] Comment on above: Performed By: #### P T, PTT, AMYL, CMP, LIPA, PHOS ####[place] [address]#### TRANSF ####[place] [phone] Erythrocyte distribution width Auto Ratio (RBC) 15.9 % High 11.5-15.0 [facility] Comment on above: Performed By: #### P T, PTT, AMYL, CMP, LIPA, PHOS ####[place] [address]#### TRANSF ####[place] [phone] Erythrocytes (RBC) 3.16 10*6/uL Low 4.20-6.00 [facility] Comment on above: Performed By: #### P T, PTT, AMYL, CMP, LIPA, PHOS ####[place] [address]#### TRANSF ####[place] [phone] Hematocrit (HCT) 27.9 % Low 39.0-51.0 [facility] Comment on above: Performed By: #### P T, PTT, AMYL, CMP, LIPA, PHOS ####[place] [address]#### TRANSF ####[place] [phone] Hemoglobin mass conc (Bld) 8.9 g/dL Low 13.0-17.0 [facility] Comment on above: Performed By: #### P T, PTT, AMYL, CMP, LIPA, PHOS ####[place] [address]#### TRANSF ####[place] [phone] Lymphocytes 0.84 10*3/uL Low 1.00-4.00 [facility] Comment on above: Performed By: #### P T, PTT, AMYL, CMP, LIPA, PHOS ####[place] [address]#### TRANSF ####[place] [phone] Lymphocytes/100 leukocytes 14.9 % Normal [facility] Comment on above: Performed By: #### P T, PTT, AMYL, CMP, LIPA, PHOS ####[place] [address]#### TRANSF ####[place] [phone] MCH 28.2 pG Normal 26.0-34.0 [facility] Comment on above: Performed By: #### P T, PTT, AMYL, CMP, LIPA, PHOS ####[place] [address]#### TRANSF ####[place] [phone] MCHC mass conc (RBC) 31.9 g/dL Normal 30.5-36.0 [facility] Comment on above: Performed By: #### P T, PTT, AMYL, CMP, LIPA, PHOS ####[place] [address]#### TRANSF ####[place] [phone] MCV 88.3 fL Normal 80.0-100.0 [facility] Comment on above: Performed By: #### P T, PTT, AMYL, CMP, LIPA, PHOS ####[place] [address]#### TRANSF ####[place] [phone] Monocytes/100 leukocytes 7.6 % Normal [facility] Comment on above: Performed By: #### P T, PTT, AMYL, CMP, LIPA, PHOS ####[place] [address]#### TRANSF ####[place] [address] Neutrophils/100 WBC Auto (Bld) 73.9 % Normal [facility] Comment on above: Performed By: #### P T, PTT, AMYL, CMP, LIPA, PHOS ####[place] [address]#### TRANSF ####[place] [phone] Platelet mean volume (PMV) 10.1 fL Normal 9.0-12.7 [facility] Comment on above: Performed By: #### P T, PTT, AMYL, CMP, LIPA, PHOS ####[place] [address]#### TRANSF ####[place] [phone] Platelets 380 10*3/uL Normal 150-400 [facility] Comment on above: Performed By: #### P T, PTT, AMYL, CMP, LIPA, PHOS ####[facility] [place], [place] [phone]#### TRANSF ####[facility] [place], [place] [phone] WBC (Leukocytes) 5.64 10*3/uL Normal 3.70-11.[address] [facility] Comment on above: Performed By: #### P T, PTT, AMYL, CMP, LIPA, PHOS ####[place] [address] [place], [place] [phone]#### TRANSF ####[facility] [place], [place] [phone] CONSULT PROGon 08-21-2017 CONSULT PROG HNO ID: [id number] thor: Jessee Lottervice: Cardiovascular DiseaseAuthor Type: PhysicianType: [...] 5,000 Units SUBCUTANEOUS q 8 Hphenol 1 [place] (CHLORASEPTIC) 1 [place] MUCOUS MEMBRANE (TOPICAL MOUTH ANDTHROAT) q 2 [...] 21, 2017 : 2:42 PM PAGER/CONTACT #: [facility] CONSULT PROG HNO ID: [id number] thor: Linda ([facility]) MacangaService: GastroenterologyAuthor Type: Nurse PractitionerType: Consult Progress [...] 5,000 Units SUBCUTANEOUS q 8 Hphenol 1 [place] (CHLORASEPTIC) 1 [place] MUCOUS MEMBRANE (TOPICAL MOUTH ANDTHROAT) q 2 [...] for assistance with strengthening andnutritional support?Linda Avalos CNPVernal Gastroenterology?Thank you for allowing us to participate in the care of this patient.Please call with questions or concerns.SIGNATURE: Linda Avalos CNP PATIENT NAME: Rocio JacksonDATE: August 21, 2017 : 9:34 AM PAGER: [phone] Normal [facility] Magnesiumon 08-21-2017 Magnesium 2.2 mg/dL Normal 1.7-2.6 [facility] Comment on above: Performed By: #### P T, PTT, AMYL, CMP, LIPA, PHOS ####[facility] [place], [place] [phone]#### TRANSF ####[facility] [address] [place], [place] [phone] PROGRESSon 08-21-2017 PROGRESS HNO ID: [id number] thor: Khadar Guo: General SurgeryAuthor Type: PhysicianType: Progress NotesFiled: 08/21/2017 6:50 PMNote Text:PROGRESS NOTES - SURGICAL SERVICESPATIENT NAME: Rocio JacksonMRN: [id number] HISTORY OF PRESENT ILLNESS:Got PTHC on 08/19. [...] Continue inpatient admissionKAEL HERNANDEZ MD (Res)General SurgeryPager: [phone]*On weekends or nights (after 1800) please contact the surgery on callpager.*Att: As above. Hopeful for home on full liquids/protein shakestomorrow.Consider dc of ROMINA drain before DC.PtC must be kept to gravity since it could not be advanced to duodenum.Outpt f/u with Dr Jolley as soon as available.Khadar Duffy MDFebruary 2017 6:50 PM Normal [facility] Phosphoruson 08-21-2017 Phosphate 2.9 mg/dL Normal 2.5-4.5 [facility] Comment on above: Performed By: #### P T, PTT, AMYL, CMP, LIPA, PHOS ####[facility] [place], [place] [phone]#### TRANSF ####[facility] [address] [place], [place] [phone] THERAPY NTon 08-21-2017 THERAPY NT HNO ID: [id number] thor: Sujata (Pt) PapcunService: Physical TherapyAuthor Type: Physical TherapistType: Therapy (PT/OT/Speech/Resp)Filed: 08/21/2017 2:10 PMNote Text:Physical Therapy EvaluationSERVICE DATE: 08/21/2017SERVICE TIME: 1255 to 1320ROOM: [place] [address] ( OPERATING ROOM)Recommended Discharge Disposition: Home PTAnticipated [...] drain. Patient's pertinent PMHx includesDM, glaucoma; HTN; AZ; s/p [place]; 2 stents. Patient's impairments as relatedto Physical [...] improve safety and independence with functionalmobility. Recommend [facility] PT with pt's approval.Tolerance Limited By Pain;FatiguePhysical [...] Reduced mobility-other;Muscle Weakness (generalized)Interventions Provided: Evaluation;Gait Training (68274)$ Evaluation-Low (51644) Billed Units: 1 unitGait Training (40126) Treatment Minutes: 101 unitSkilled Intervention(s): Instruction in [...] 21, 2017 : 2:05 PM PAGER/CONTACT #: [phone] [facility] THERAPY NT HNO ID: [id number] thor: Mandi (Ot) GarnekService: Occupational TherapyAuthor Type: Occupational TherapistType: Therapy (PT/OT/Speech/Resp)Filed: 08/21/2017 11:25 AMNote Text:Occupational Therapy EvaluationSERVICE DATE: 08/21/2017SERVICE TIME: 0845 to 0910ROOM: [place] [address] ( OPERATING ROOM)Admit with Emesis X 1 Month, Abdominal Pain, Partial Duodenal Obstructionand Obstructive Jaundice, Abdominal Abscess, S/P CT Guided AbscessDrainage 08/15/17, S/P Recent Cholecystectomy 08/11/17, and ERCP 08/13/17Recommended Discharge Disposition: Home OTAnticipated Discharge Needs: Physical Assist at Home;EquipmentPhysical Assist at Home for: Cleaning;Laundry;Meals;SelfC are;Shopping;TransportationR ecommended Discharge Equipment: Elastic Shoe Laces;Grab Bars-Shower;HandHeld Shower;Long Handled Shoe Horn;Long Handled Sponge;WheeledWalker;Advisor Consultant ;Sock Aide;Shower ChairOT Recommendations to Nursing: OOB [...] History Relevantto Therapy Includes: DM, Glaucoma, HTN, [place]. For Complete Past MedicalHistory Please Refer to [...] level. 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 Pt has a small dog [...] dailyliving (ADL);Muscle Weakness (generalized)Interventions Provided: Evaluation;Therapeutic Activity (44080)$ Evaluation-Low (58538) Billed Units: 1 unitTherapeutic Activity (39213) Treatment Minutes: 101 unitSkilled Intervention(s): Instructed patient [...] prior toadmit, and works FT in a [employer].OBJECTIVE:Responsiven ess: Alert;AwakeFollows Commands: 3-step CommandsVision Deficits: Wears [...] August 21, 2017 : 11:19 AM PAGER: [phone] [facility] CASE MANAGEMon 08-20-2017 CASE MANAGEM HNO ID: [id number] thor: Alexandrea (Rn) Thom, RNService: Care ManagementAuthor Type: Registered NurseType: Care Mgt Progress NoteFiled: 08/20/2017 1:48 PMNote Text:MULTIDISCIPLINARY ROUNDSSERVICE DATE: 08/20/2017 ADMISSION DATE: 08/13/2017SERVICE TIME: 1:46 PM ANTICIPATED D/C DATE: ThursdayPro List:ACTIVE PROBLEM LISTDuodenal ObstructionSevere Protein-Calorie Malnutrition (Hcc)Attendees Present at Rounds:Stage Set Designer: Chantelleurse Leasing Consultant/Travel Registered Nurse Oncology Nurse Leasing Consultant: Roderick Nurse: Laura Discussed on Rounds:Discharge NeedsPlan of CareAnticipated Discharge Disposition:[facility] FacilityPer discussion with Dr Duffy pt [...] August 20, 2017 : 1:46 PM CSN: [id number] [facility] CBCon 08-20-2017 Erythrocyte distribution width Auto Ratio (RBC) 15.8 % High 11.5-15.0 [facility] Comment on above: Performed By: #### C BC, CMP, MG1, PHOS ####[facility] [place], [place] [phone] Erythrocytes (RBC) 2.93 10*6/uL Low 4.20-6.00 [facility] Comment on above: Performed By: #### C BC, CMP, MG1, PHOS ####[place] [phone] Hematocrit (HCT) 26.0 % Low 39.0-51.0 [facility] Comment on above: Performed By: #### C BC, CMP, MG1, PHOS ####[place] [phone] Hemoglobin mass conc (Bld) 8.3 g/dL Low 13.0-17.0 [facility] Comment on above: Performed By: #### C BC, CMP, MG1, PHOS ####[place] [phone] MCH 28.3 pG Normal 26.0-34.0 [facility] Comment on above: Performed By: #### C BC, CMP, MG1, PHOS ####[place] [phone] MCHC mass conc (RBC) 31.9 g/dL Normal 30.5-36.0 [facility] Comment on above: Performed By: #### C BC, CMP, MG1, PHOS ####[place] [phone] MCV 88.7 fL Normal 80.0-100.0 [facility] Comment on above: Performed By: #### C BC, CMP, MG1, PHOS ####[place] [phone] Platelet mean volume (PMV) 9.6 fL Normal 9.0-12.7 [facility] Comment on above: Performed By: #### C BC, CMP, MG1, PHOS ####[place] [phone] Platelets 331 10*3/uL Normal 150-400 [facility] Comment on above: Performed By: #### C BC, CMP, MG1, PHOS ####[place] [phone] WBC (Leukocytes) 5.78 10*3/uL Normal 3.70-11.[address] [facility] Comment on above: Performed By: #### C BC, CMP, MG1, PHOS ####[place] [address] Comp Metabolic Panelon 08-20 Alanine aminotransferase (ALT) 55 U/L High 5-50 [facility] Comment on above: Performed By: #### C BC, CMP, MG1, PHOS ####[place] [address] Albumin 2.1 g/dL Low 3.5-5.0 [facility] Comment on above: Result Comment: Revi ewed Performed By: #### C BC, CMP, MG1, PHOS ####[place] [address] Alkaline phosphatase (ALP) 241 U/L High 40-150 [facility] Comment on above: Performed By: #### C BC, CMP, MG1, PHOS ####[place] [address] Anion gap 9 mmol/L Normal 9-18 [facility] Comment on above: Performed By: #### C BC, CMP, MG1, PHOS ####[place] [address] Aspartate aminotransferase (AST) 42 U/L High 7-40 [facility] Comment on above: Result Comment: Resu lts may be falsely increased due to interference by hemolysis. Suggest reorder as clinically indicated. Performed By: #### C BC, CMP, MG1, PHOS ####[place] [address] Bilirubin (total) 0.7 mg/dL Normal 0.0-1.5 [facility] Comment on above: Performed By: #### C BC, CMP, MG1, PHOS ####[place] [address] Calcium 7.6 mg/dL Low 8.5-10.5 [facility] Comment on above: Performed By: #### C BC, CMP, MG1, PHOS ####[place] [phone] Chloride 109 mmol/L Normal 98-110 [facility] Comment on above: Performed By: #### C BC, CMP, MG1, PHOS ####[place] [phone] CO2 23 mmol/L Normal 23-32 [facility] Comment on above: Performed By: #### C BC, CMP, MG1, PHOS ####[place] [phone] Creatinine 0.68 mg/dL Low 0.70-1.40 [facility] Comment on above: Performed By: #### C BC, CMP, MG1, PHOS ####[place] [phone] eGFR (non-black) mL/min/{1.73_m2} Normal >60 [facility] Comment on above: Performed By: #### C BC, CMP, MG1, PHOS ####[place] [phone] Glucose mass conc 117 mg/dL High 65-100 [facility] Comment on above: Performed By: #### C BC, CMP, MG1, PHOS ####[place] [phone] Potassium molar conc 3.9 mmol/L Normal 3.5-5.0 [facility] Comment on above: Performed By: #### C BC, CMP, MG1, PHOS ####[place] [address] Protein 5.3 g/dL Low 6.0-8.4 [facility] Comment on above: Performed By: #### C BC, CMP, MG1, PHOS ####[place] [phone] Sodium 141 mmol/L Normal 135-146 [facility] Comment on above: Performed By: #### C BC, CMP, MG1, PHOS ####[facility] [place], [place] [phone] Urea nitrogen 6 mg/dL Low 10-25 [facility] Comment on above: Performed By: #### C BC, CMP, MG1, PHOS ####[address] [phone] Magnesiumon 08-20-2017 Magnesium 2.2 mg/dL Normal 1.7-2.6 [facility] Comment on above: Performed By: #### C BC, CMP, MG1, PHOS ####[address] [phone] NURSING PROGon 08-20-2017 NURSING PROG HNO ID: [id number] thor: Maryanne (Rn) Luis Miguel, RNService: (none)Author Type: Registered NurseType: Nursing Progress NoteFiled: 08/20/2017 9:53 AMNote Text: Nursing Progress NotePatient Name: Rocio TorresDary: [id number] Location: [place] [address]/[id number] ____0945 - attempted to flush right double lumen PICC, both lumens are patentwith positive blood return, restarted ordered IV fluids. Patienttolerating wellThis note was completed by: Maryanne Bolanos RN [facility] PROGRESSon 08-20-2017 PROGRESS HNO ID: [id number] thor: Khadar Guo: General SurgeryAuthor Type: PhysicianType: Progress NotesFiled: 08/20/2017 12:27 PMNote Text:PROGRESS NOTES - SURGICAL SERVICESPATIENT NAME: Rociomarisa Boudreaux: [id number] HISTORY OF PRESENT ILLNESS:Got PTHC yesterday. No [...] likely remove ROMINA then start in am.Khadar Dfufy MDFebruary 2017 12:27 PM Normal [facility] Phosphoruson 08-20-2017 Phosphate 2.9 mg/dL Normal 2.5-4.5 [facility] Comment on above: Performed By: #### C BC, CMP, MG1, PHOS ####[facility] [place], [place] [phone] ANES Ila 08-19-2017 ANES POST HNO ID: [id number] thor: Craig Pinzonervice: AnesthesiologyAuthor Type: AnesthesiologistType: Anesthesia [...] 19, 2017 : 4:20 PM PAGER/CONTACT #: [facility] ANES PREOPon 08-19-2017 ANES PREOP HNO ID: [id number] thor: Brian BarriossService: AnesthesiologyAuthor Type: AnesthesiologistType: Anesthesia PreOpFiled: 08/19/2017 6:27 PMNote Text:REGIONAL ANESTHESIOLOGY DAY OF SURGERY NOTEPATIENT NAME: Rocio JacksonMRN: [id number]: 1957Procedure(s) (LRB):ANESTHESIA FOR NON-INVASIVE IMAGING OR RADIATION THERAPY (N/A)Surgeon(s):Radiology DanielsVanessa TritleEstimated body mass index is 29.19 kg/(m2) [...] and vomitingCAD s/p stentsHTNDMIIPersistent AfibDuodenal massChronic Beta Juni medication administered within 24 hours: [...] Date- ANGIOPLASTY HX 05/15/2011 2 stents s/p [place];[facility]- CHOLECYSTECTOMY 08/11/2017 [facility]- PICC LINE INSERT/CONSULT 08/16/2017No family history on [...] August 19, 2017 : 1220 PAGER/CONTACT #: [phone] (pager) [facility] BRIEF OP NOTon 08-19-2017 BRIEF OP NOT HNO ID: [id number] thor: Vanessa GarciaSerkalliee: RadiologyAuthor Type: PhysicianType: Brief Op NoteFiled: 08/19/2017 2:57 PMNote Text:BRIEF OPERATIVE / PROCEDURE NOTESurgery/Procedure Date: 08/19/17Incision/Procedure Start Time:Incision Close/Procedure End Time:Surgeon(s)/Proceduralis t(s) and Travel Registered Nurse Oncology(s):Dusty Garcia - PrimaryProcedure(s): R PTHC and Int/Ext biliary drainAnesthesia: GeneralFindings: Mildly dilated IH ducts. NO filling defects. Severe D2-3strictureEstimated Blood Loss: MinimalSpecimens: NoneComplications: NonePre-Op/Pre-Procedure Diagnosis: Duodenal massPost-Op/Post-Procedure Diagnosis: SameSIGNATURE: Vanessa Garcia MD PATIENT NAME: Rocio JacksonDATE: August 19, 2017 : 2:56 PM PAGER/CONTACT #: [facility] CBCon 08-19-2017 Erythrocyte distribution width Auto Ratio (RBC) 15.4 % High 11.5-15.0 [facility] Comment on above: Performed By: #### C BC, CMP, MG1, PHOS ####[place] [phone] Erythrocytes (RBC) 3.17 10*6/uL Low 4.20-6.00 [facility] Comment on above: Performed By: #### C BC, CMP, MG1, PHOS ####[place] [phone] Hematocrit (HCT) 27.7 % Low 39.0-51.0 [facility] Comment on above: Performed By: #### C BC, CMP, MG1, PHOS ####[place] [phone] Hemoglobin mass conc (Bld) 8.8 g/dL Low 13.0-17.0 [facility] Comment on above: Performed By: #### C BC, CMP, MG1, PHOS ####[place] [phone] MCH 27.8 pG Normal 26.0-34.0 [facility] Comment on above: Performed By: #### C BC, CMP, MG1, PHOS ####[place] [phone] MCHC mass conc (RBC) 31.8 g/dL Normal 30.5-36.0 [facility] Comment on above: Performed By: #### C BC, CMP, MG1, PHOS ####[address] MCV 87.4 fL Normal 80.0-100.0 [facility] Comment on above: Performed By: #### C BC, CMP, MG1, PHOS ####[place] [id number] Platelet mean volume (PMV) 9.7 fL Normal 9.0-12.7 [facility] Comment on above: Performed By: #### C BC, CMP, MG1, PHOS ####[place] [phone] Platelets 344 10*3/uL Normal 150-400 [facility] Comment on above: Performed By: #### C BC, CMP, MG1, PHOS ####[place] [address] WBC (Leukocytes) 6.57 10*3/uL Normal 3.70-11.[address] [facility] Comment on above: Performed By: #### C BC, CMP, MG1, PHOS ####[place] [address] Comp Metabolic Panelon 08-19 Alanine aminotransferase (ALT) 53 U/L High 5-50 [facility] Comment on above: Performed By: #### C BC, CMP, MG1, PHOS ####[place] [address] Albumin 2.5 g/dL Low 3.5-5.0 [facility] Comment on above: Performed By: #### C BC, CMP, MG1, PHOS ####[place] [address] Alkaline phosphatase (ALP) 249 U/L High 40-150 [facility] Comment on above: Performed By: #### C BC, CMP, MG1, PHOS ####[place] [address] Anion gap 11 mmol/L Normal 9-18 [facility] Comment on above: Performed By: #### C BC, CMP, MG1, PHOS ####[place] [address] Aspartate aminotransferase (AST) 27 U/L Normal 7-40 [facility] Comment on above: Performed By: #### C BC, CMP, MG1, PHOS ####[place] [id number] Bilirubin (total) 0.9 mg/dL Normal 0.0-1.5 [facility] Comment on above: Performed By: #### C BC, CMP, MG1, PHOS ####[place] [address] Calcium 7.6 mg/dL Low 8.5-10.5 [facility] Comment on above: Performed By: #### C BC, CMP, MG1, PHOS ####[place] [address] Chloride 108 mmol/L Normal 98-110 [facility] Comment on above: Performed By: #### C BC, CMP, MG1, PHOS ####[place] [address] CO2 23 mmol/L Normal 23-32 [facility] Comment on above: Performed By: #### C BC, CMP, MG1, PHOS ####[place] [address] Creatinine 0.58 mg/dL Low 0.70-1.40 [facility] Comment on above: Performed By: #### C BC, CMP, MG1, PHOS ####[place] [address] eGFR (non-black) mL/min/{1.73_m2} Normal >60 [facility] Comment on above: Performed By: #### C BC, CMP, MG1, PHOS ####[place] [address] Glucose mass conc 144 mg/dL High 65-100 [facility] Comment on above: Performed By: #### C BC, CMP, MG1, PHOS ####[place] [address] Potassium molar conc 3.4 mmol/L Low 3.5-5.0 [facility] Comment on above: Performed By: #### C BC, CMP, MG1, PHOS ####[place] [address] Protein 5.6 g/dL Low 6.0-8.4 [facility] Comment on above: Performed By: #### C BC, CMP, MG1, PHOS ####[place] [address] Sodium 142 mmol/L Normal 135-146 [facility] Comment on above: Performed By: #### C BC, CMP, MG1, PHOS ####[facility] [place], [place] [phone] Urea nitrogen 7 mg/dL Low 10-25 [facility] Comment on above: Performed By: #### C BC, CMP, MG1, PHOS ####[facility] [place], [place] [phone] CATH BILI DRAIN INT -EXTon [...] Air Kerma: 1529.0 mGyDose Area Product (DAP): 589569.0 mGy*gd4Emgnep Time: 46:36 min:secRadiation dose exceed 5 Gy: [...] an Alvarez Set dilator. Using a 4 Montserratian Kumpe catheter in conjunction with a glide wire, access was obtained into the small bowel. Despite multiple attempts with multiple wires and catheters, the duodenal stricture could not be passed via the [facility] access. 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.THE PATIENT MAY RETURN IN 8 WEEKS FOR ROUTINE CATHETER CHANGE IF LONG-TERM PERCUTANEOUS ACCESS IS REQUIRED.Sleep Manager: NII Transcribe Date/Time: Aug 19 2017 3:26PDictated by : VANESSA GARCIA MDThimilly examination was interpreted and the report reviewed and electronically signed by: VANESSA GARCIA MD on Aug 21 2017 3:05PM EST Normal [facility] Magnesiumon 08-19-2017 Magnesium 2.2 mg/dL Normal 1.7-2.6 [facility] Comment on above: Performed By: #### C BC, CMP, MG1, PHOS ####[facility] [place], [place] [phone] NURSING PROGon 08-19-2017 NURSING PROG HNO ID: [id number] thor: Shavonne (Rn) [place], RNService: NursingAuthor Type: Registered NurseType: Nursing Progress NoteFiled: 08/19/2017 5:27 PMNote Text: Nursing Progress NotePatient Name: Rocio TorresDary: [id number] [id number] ____Pt returned from PACU in stable condition. Right lateral lower quadrantdrain patent, draining brown, bilious fluid. A+Ox3, speech clear.Medicated for c/o generalized pain. Glucose 112. NPO order continued,green surgical team paged for updated orders.This note was completed by: Shavonne Mays RN [facility] NURSING PROG HNO ID: [id number] Author: Paty (Rn) KEVIN Cardoza Service: Nursing Author Type: Registered Nurse Type: Nursing Progress Note Filed: 08/19/2017 3:26 PM Note Text: Biliary tube that is the latest tube draining baldwin and rust colored.} [facility] NURSING PROG HNO ID: [id number] thor: Latanya (Rn) MOUSTAPHA Larsenervice: RadiologyAuthor Type: Registered NurseType: Nursing Progress NoteFiled: 08/19/2017 11:47 AMNote Text:PATIENT EDUCATION TOPIC: PROCEDURE / SURGERY: Procedure/Surgery: PTHCPATIENT NAME: Rocio JacksonPETRONA: [id number] LOCATION: [place] [address]READINES S TO LEARNCOGNITIVE ABILITY: Alert and orientedMOTIVATION TO LEARN: EagerInterestedFAMILY SUPPORT: Unable to assess - Family not presentINSTRUCTION PROVIDED TO: PatientPATIENT LEARNS BEST BY: Individual InstructionWritten Instruction - Hand-outsVerbal InstructionFACTORS AFFECTING LEARNING: NonePHYSICAL LIMITATIONS AFFECTING LEARNING: NoneLEARNING RESPONSEDIAGNOSIS: ADULT: Duodenal massPATIENT/FAMILY RESPONSE: Verbalizes understanding of: OHSO-[id number]-S orrect actions to take to reduce post procedurecomplicationsPRE-AZ OCEDURE INSTRUCTIONS-Correct action to take to follow pre-procedureinstructionsMET HOD OF INSTRUCTION: Individual instructionWritten instruction - handoutsVerbal instructionFOLLOW-UP PLAN: Follow-up with Primary CareINSTRUCTIONAL AIDS USED: NASUPPLEMENTAL MATERIAL PROVIDED TO PATIENT: NoneREFERRAL (RECOMMENDATION): NoneElectronically Signed By: Latanya Larsen RN [facility] NURSING PROG HNO ID: [id number] thor: Jennifer KenRn) MOUSTAPHA Websterervice: (none)Author Type: Registered NurseType: Nursing Progress NoteFiled: 08/19/2017 3:24 AMNote Text: Nursing Progress NotePatient Name: Rocio HayesN: [id number] Location: [place] [address]/[id number] ____ Pt with mild abd pain of 3 or less tonight. Tylenol controlling. Ptaware if needed may have pain pills. Accordian drain flushed at 2100 perorder for positive return of sterile NS and brown liquid.This note was completed by: Jennifer Webster RN [facility] NUTRITIONon 08-19-2017 NUTRITION HNO ID: [id number] thor: Alise Segura) BarsaService: Nutrition TherapyAuthor Type: [...] 87 kgResting Metabolic Rate: 1661Estimated kilocalorie needs: 3348-9730 kilocalories determined by 25-28kcal/kgEstimated protein needs:113 - [...] kg (192 lb) SpO2 98% BMI 29.19 kg/l7Eancpt Labs GLUC 144*BUN 7*CREAT 0.58*NA 142K 3.4*CHLOR [...] 5,000 Units SUBCUTANEOUS q 8 Hphenol 1 [place] (CHLORASEPTIC) 1 [place] MUCOUS MEMBRANE (TOPICAL MOUTH ANDTHROAT) q 2 [...] assistance and weekends please page theGroup Pager -[phone] [facility] PROGRESSon 08-19-2017 PROGRESS HNO ID: [id number] thor: Khadar Guo: General SurgeryAuthor Type: PhysicianType: [...] 1-2 days, with outpt followup with Dr jolely.If unable to tolerate, then may need corpak placed by GI.Khadar Duffy MDbruary 2017 9:48 PMAddendum: Patient also demonstrates severe protein calorie malnutrition.Since his duodenal obstruction has been dilated, we will try POreplenishment, and possibly may need enteral feeds.Khadar Duffy MDbruary 2017 9:56 PM Normal [facility] Phosphoruson 08-19-2017 Phosphate 1.9 mg/dL Low 2.5-4.5 [facility] Comment on above: Performed By: #### C BC, CMP, MG1, PHOS ####[facility] [place], [place] [phone] CASE MANAGEMon 08-18-2017 CASE MANAGEM HNO ID: [id number] thor: Alexandrea (Rn) Thom, MOUSTAPHAervice: Care ManagementAuthor Type: Registered NurseType: Care Mgt Progress NoteFiled: 08/18/2017 2:30 PMNote Text:MULTIDISCIPLINARY ROUNDSSERVICE DATE: 08/18/2017 ADMISSION DATE: 08/13/2017SERVICE TIME: 2:27 PM ANTICIPATED D/C DATE: 1-3 daysProblem List:ACTIVE PROBLEM LISTDuodenal ObstructionSevere Protein-Calorie Malnutrition (Hcc)Attendees Present at Rounds:Stage Set Designer: Roderick Nurse: Laura Discussed on Rounds:Discharge NeedsPlan [...] August 18, 2017 : 2:27 PM CSN: [id number] Normal [facility] CBCon 08-18-2017 Erythrocyte distribution width Auto Ratio (RBC) 15.7 % High 11.5-15.0 [facility] Comment on above: Performed By: #### P T, PTT, AMYL, CMP, LIPA, PHOS ####[place] [phone]#### TRANSF ####[place] [phone] Erythrocytes (RBC) 3.08 10*6/uL Low 4.20-6.00 [facility] Comment on above: Performed By: #### P T, PTT, AMYL, CMP, LIPA, PHOS ####[place] [phone]#### TRANSF ####[place] [phone] Hematocrit (HCT) 26.6 % Low 39.0-51.0 [facility] Comment on above: Performed By: #### P T, PTT, AMYL, CMP, LIPA, PHOS ####[place] [phone]#### TRANSF ####[place] [address] Hemoglobin mass conc (Bld) 8.6 g/dL Low 13.0-17.0 [facility] Comment on above: Performed By: #### P T, PTT, AMYL, CMP, LIPA, PHOS ####[place] [address]#### TRANSF ####[place] [address] MCH 27.9 pG Normal 26.0-34.0 [facility] Comment on above: Performed By: #### P T, PTT, AMYL, CMP, LIPA, PHOS ####[place] [address]#### TRANSF ####[place] [address] MCHC mass conc (RBC) 32.3 g/dL Normal 30.5-36.0 [facility] Comment on above: Performed By: #### P T, PTT, AMYL, CMP, LIPA, PHOS ####[place] [address]#### TRANSF ####[place] [address] MCV 86.4 fL Normal 80.0-100.0 [facility] Comment on above: Performed By: #### P T, PTT, AMYL, CMP, LIPA, PHOS ####[place] [address]#### TRANSF ####[place] [address] Platelet mean volume (PMV) 10.2 fL Normal 9.0-12.7 [facility] Comment on above: Performed By: #### P T, PTT, AMYL, CMP, LIPA, PHOS ####[address] [phone]#### TRANSF ####[address] [phone] Platelets 310 10*3/uL Normal 150-400 [facility] Comment on above: Performed By: #### P T, PTT, AMYL, CMP, LIPA, PHOS ####[address] [phone]#### TRANSF ####[address] [phone] WBC (Leukocytes) 4.87 10*3/uL Normal 3.70-11.[address] [facility] Comment on above: Performed By: #### P T, PTT, AMYL, CMP, LIPA, PHOS ####[address] [phone]#### TRANSF ####[address] [phone] CONSULT PROGon 08-18-2017 CONSULT PROG HNO ID: [id number] thor: Linda ([facility]) BinhaService: GastroenterologyAuthor Type: Nurse PractitionerType: Consult Progress NoteFiled: 08/18/2017 1:23 PMNote Text:CONSULT PROGRESS NOTESERVICE DATE: 08/18/2017SERVICE TIME: 1:20 PMCONSULTING SERVICE: GISubjectiveINTERVAL HPI: No acute events overnight. 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.Current hospital medications:insulin lispro injection (rapid acting) (HumaLOG) SUBCUTANEOUS w MEALSAND HSphenol 1 [place] (CHLORASEPTIC) 1 [place] MUCOUS MEMBRANE (TOPICAL MOUTH ANDTHROAT) q 2 [...] tube placement for feeding-continue to followJudith Weber [facility] GastroenterologyThank you for allowing us to participate in the care of this patient.Please call with questions or concerns.SIGNATURE: Linda Avalos CNP PATIENT NAME: Rocio Sibley: August 18, 2017 : 1:20 PM PAGER: [phone] Normal [facility] Comp Metabolic Panelon 08-18 Alanine aminotransferase (ALT) 66 U/L High 5-50 [facility] Comment on above: Performed By: #### P T, PTT, AMYL, CMP, LIPA, PHOS ####[place] [address]#### TRANSF ####[place] [phone] Albumin 2.3 g/dL Low 3.5-5.0 [facility] Comment on above: Performed By: #### P T, PTT, AMYL, CMP, LIPA, PHOS ####[place] [address]#### TRANSF ####[place] [phone] Alkaline phosphatase (ALP) 261 U/L High 40-150 [facility] Comment on above: Performed By: #### P T, PTT, AMYL, CMP, LIPA, PHOS ####[place] [address]#### TRANSF ####[place] [phone] Anion gap 8 mmol/L Low 9-18 [facility] Comment on above: Performed By: #### P T, PTT, AMYL, CMP, LIPA, PHOS ####[place] [address]#### TRANSF ####[place] [phone] Aspartate aminotransferase (AST) 32 U/L Normal 7-40 [facility] Comment on above: Performed By: #### P T, PTT, AMYL, CMP, LIPA, PHOS ####[place] [address]#### TRANSF ####[address] [place] [phone] Bilirubin (total) 0.9 mg/dL Normal 0.0-1.5 [facility] Comment on above: Performed By: #### P T, PTT, AMYL, CMP, LIPA, PHOS ####[place] [address]#### TRANSF ####[address] [place] [phone] Calcium 7.2 mg/dL Low 8.5-10.5 [facility] Comment on above: Result Comment: Norma sumner Performed By: #### P T, PTT, AMYL, CMP, LIPA, PHOS ####[place] [address]#### TRANSF ####[place] [phone] Chloride 112 mmol/L High 98-110 [facility] Comment on above: Performed By: #### P T, PTT, AMYL, CMP, LIPA, PHOS ####[place] [address]#### TRANSF ####[place] [phone] CO2 28 mmol/L Normal 23-32 [facility] Comment on above: Performed By: #### P T, PTT, AMYL, CMP, LIPA, PHOS ####[place] [address]#### TRANSF ####[address] [place] [phone] Creatinine 0.71 mg/dL Normal 0.70-1.40 [facility] Comment on above: Performed By: #### P T, PTT, AMYL, CMP, LIPA, PHOS ####[place] [phone]#### TRANSF ####[phone] eGFR (non-black) mL/min/{1.73_m2} Normal >60 [facility] Comment on above: Performed By: #### P T, PTT, AMYL, CMP, LIPA, PHOS ####[place] [address]#### TRANSF ####[place] [phone] Glucose mass conc 160 mg/dL High 65-100 [facility] Comment on above: Performed By: #### P T, PTT, AMYL, CMP, LIPA, PHOS ####[place] [address]#### TRANSF ####[place] [phone] Potassium molar conc 3.9 mmol/L Normal 3.5-5.0 [facility] Comment on above: Result Comment: Revi ewed Performed By: #### P T, PTT, AMYL, CMP, LIPA, PHOS ####[address]#### TRANSF ####[place] [phone] Protein 5.5 g/dL Low 6.0-8.4 [facility] Comment on above: Performed By: #### P T, PTT, AMYL, CMP, LIPA, PHOS ####[place] [phone]#### TRANSF ####[place] [phone] Sodium 148 mmol/L High 135-146 [facility] Comment on above: Performed By: #### P T, PTT, AMYL, CMP, LIPA, PHOS ####[place] [address]#### TRANSF ####[place] [phone] Urea nitrogen 13 mg/dL Normal 10-25 [facility] Comment on above: Performed By: #### P T, PTT, AMYL, CMP, LIPA, PHOS ####[address]#### TRANSF ####[place] [phone] Magnesiumon 08-18-2017 Magnesium 2.1 mg/dL Normal 1.7-2.6 [facility] Comment on above: Performed By: #### P T, PTT, AMYL, CMP, LIPA, PHOS ####[place] [address]#### TRANSF ####[place] [phone] NUTRITIONon 08-18-2017 NUTRITION HNO ID: [id number] thor: Alise (Carlos) BarsaService: Nutrition TherapyAuthor Type: Registered DietitianType: NutritionFiled: 08/18/2017 1:39 PMNote Text:NUTRITION THERAPY PROGRESS NOTESERVICE DATE: 08/18/2017SERVICE TIME: 1:24 PMRECOMMENDED DIAGNOSIS: SEVERE PROTEIN-CALORIE MALNUTRITION per RegisteredDietitian on 08/14NUTRITION CARE PLANIntervention:Diet NPOAdvance to clearsMonitor and Evaluation:Goal: Meet >75% of estimated needsMonitor fluid/electrolyte balanceMonitor labs, I/Os, vital signs, weightDischarge Nutrition Recommendations:To be [age]cxgvgtdfa12 year old male with a history notable [...] acting) (HumaLOG) SUBCUTANEOUS w MEALSAND HSphenol 1 [place] (CHLORASEPTIC) 1 [place] MUCOUS MEMBRANE (TOPICAL MOUTH ANDTHROAT) q 2 [...] assistance and weekends please page theGroup Pager -[phone] [facility] PROGRESSon 08-18-2017 PROGRESS HNO ID: [id number] thor: Khadar Guo: General SurgeryAuthor Type: PhysicianType: Progress NotesFiled: 08/18/2017 6:11 PMNote Text:PROGRESS NOTES - SURGICAL SERVICESPATIENT NAME: Rocio JacksonMRN: [id number] HISTORY OF PRESENT ILLNESS:No acute events overnight. [...] care: IS, EVERETT HERNANDEZ MD (Res)General SurgeryPager: [phone]*On weekends or nights (after 1800) please contact [...] understand.Khadar Duffy MDFebruary 2017 6:11 PM Normal [facility] Phosphoruson 08-18-2017 Phosphate 2.2 mg/dL Low 2.5-4.5 [facility] Comment on above: Performed By: #### P T, PTT, AMYL, CMP, LIPA, PHOS ####[facility] [place], [place] [phone]#### TRANSF ####[facility] [place], [place] [phone] ANES Ila 08-17-2017 ANES POST HNO ID: [id number] thor: Reba ValleService: AnesthesiologyAuthor Type: AnesthesiologistType: Anesthesia PostOpFiled: 08/17/2017 5:41 PMNote Text:POST ANESTHESIA EVALUATION NOTESERVICE DATE: 08/17/2017SERVICE TIME: 1741DOB: 1955Vitals: 08/17/1807Temp: 37 ?C (98.6 ?F) 37.1 ?C (98.8 ?F) 37 ?C (98.6 ?F) 36.9 ?C (98.4 ?F) 08/17/1813BP: 141/90 128/84 124/86 113/79 08/17/1813Pulse: 109 101 92 115 08/17/181319/054573Llyz: 19 16 14 20 08/17/1813SpO2: 94% 96% [...] 17, 2017 : 5:41 PM PAGER/CONTACT #: [facility] ANES PREOPon 08-17-2017 ANES PREOP HNO ID: [id number] thor: Reba ValleService: AnesthesiologyAuthor Type: AnesthesiologistType: Anesthesia PreOpFiled: 08/17/2017 3:21 PMNote Text:REGIONAL ANESTHESIOLOGY DAY OF SURGERY NOTEPATIENT NAME: Rocio JacksonMRN: [id number]: 1955Procedure(s) (LRB):ERCP (N/A)Surgeon(s):Srinath NavaEstimated body mass index [...] 1.0 08/17/2017Creatinine 0.68 08/17/2017EKG:atrial fibrillation, rate 100sVitals: 550711 900 459BP: 128/77 141/90 128/84Pulse: 100 109 [...] Date- ANGIOPLASTY HX 05/15/2011 2 stents s/p [place];[facility]- CHOLECYSTECTOMY 08/11/2017 [facility]- PICC LINE INSERT/CONSULT 08/16/2017No family history on file.Social History:Social HistorySubstance Use Topics- Smoking status: Former Smoker Types: Cigarettes Quit date: 2010- Smokeless tobacco: Never Used- Alcohol use 1.5 oz/week 1 Cans of Beer (12oz) per week Comment: occasional beerNo current facility-administered medications on file prior to encounter.No current outpatient prescriptions on file prior to encounter.Inpatient medications reviewed in [facility].I have interviewed and examined the patient. I have reviewed the medicalrecord and/or the pre-anesthesia evaluation, pertinent labs, and testresults.Significant changes in the patient's condition since the History andPhysical, not otherwise documented in primary service progress notes: NoThis contains updated information obtained within 48 hours ofSurgery/Procedure.SIGNATUR E: Reba Valle MD PATIENT NAME: Rocio VizcarraTE: August 17, 2017 : 3:20 PM PAGER/CONTACT #: [facility] BRIEF OP NOTon 08-17-2017 BRIEF OP NOT HNO ID: [id number] thor: Srinath Padillae: GastroenterologyAuthor Type: PhysicianType: Brief Op NoteFiled: 08/17/2017 5:07 PMNote Text:Please see procedure report under procedure tabIMP:Duodenal mass, malignant with D2 stenosis involving area of papillaS/P dilation to 15mm balloonRecs:Clear liquid diet, may consider EGD assisted duodenal tube placement forfeedingUnable to cannulate due to sharp angulation, can have PTC with exchange tointernal endoscopically [facility] CASE MGT INIT ASSESon 2017 CASE MGT INIT [facility] HNO ID: [id number] thor: Alexandrea (Rn) MOUSTAPHA Tomaservice: Care ManagementAuthor Type: Registered NurseType: Care Mgt Initial AssessmentFiled: 08/17/2017 2:14 PMNote Text:CARE MANAGEMENT: ASSESSMENT AND DISCHARGE PLANSERVICE DATE: 08/17/2017SERVICE TIME: 2:11 PMPRIMARY CARE PHYSICIAN:No primary care provider on file.Phone: NoneADMISSION STATUS: InpatientPOTENTIAL DISCHARGE PLANSTo Be DeterminedPatient/Representa tive Stated Goals: I am having a test this afternoon.Needs Prior to Discharge: To Be DeterminedHealth Insurance: [facility] HospitalLiving Arrangement: HomeLives With: 2 adult childrenFinancial Resources: N/APrimary Contact:Extended Emergency Contact InformationPrimary Emergency Contact: Corazon Mullerddress: [place], [place] [address]Xfcw Ogkuhzwu: SiblingSupportive: YesOther Important Patient Contacts: NoneCAREGIVER ASSESSMENT:Caregiver [...] days? NoHas the Patient Been in a Retirement Facility in the Past 30 days? NoFREEDOM [...] 17, 2017 : 2:07 PM PAGER/CONTACT #: [phone] Normal [facility] CBCon 08-17-2017 Erythrocyte distribution width Auto Ratio (RBC) 15.5 % High 11.5-15.0 [facility] Comment on above: Performed By: #### P T, PTT, AMYL, CMP, LIPA, PHOS ####[place] [address]#### TRANSF ####[place] [phone] Erythrocytes (RBC) 3.18 10*6/uL Low 4.20-6.00 [facility] Comment on above: Performed By: #### P T, PTT, AMYL, CMP, LIPA, PHOS ####[place] [address]#### TRANSF ####[place] [phone] Hematocrit (HCT) 27.4 % Low 39.0-51.0 [facility] Comment on above: Performed By: #### P T, PTT, AMYL, CMP, LIPA, PHOS ####[place] [address]#### TRANSF ####[place] [phone] Hemoglobin mass conc (Bld) 9.1 g/dL Low 13.0-17.0 [facility] Comment on above: Performed By: #### P T, PTT, AMYL, CMP, LIPA, PHOS ####[place] [address]#### TRANSF ####[place] [address] MCH 28.6 pG Normal 26.0-34.0 [facility] Comment on above: Performed By: #### P T, PTT, AMYL, CMP, LIPA, PHOS ####[place] [address]#### TRANSF ####[place] [phone] MCHC mass conc (RBC) 33.2 g/dL Normal 30.5-36.0 [facility] Comment on above: Performed By: #### P T, PTT, AMYL, CMP, LIPA, PHOS ####[place] [address]#### TRANSF ####[place] [address] MCV 86.2 fL Normal 80.0-100.0 [facility] Comment on above: Performed By: #### P T, PTT, AMYL, CMP, LIPA, PHOS ####[place] [address]#### TRANSF ####[place] [phone] Platelet mean volume (PMV) 10.0 fL Normal 9.0-12.7 [facility] Comment on above: Performed By: #### P T, PTT, AMYL, CMP, LIPA, PHOS ####[place] [address]#### TRANSF ####[place] [phone] Platelets 319 10*3/uL Normal 150-400 [facility] Comment on above: Performed By: #### P T, PTT, AMYL, CMP, LIPA, PHOS ####[place] [address]#### TRANSF ####[place] [address] WBC (Leukocytes) 7.02 10*3/uL Normal 3.70-11.[address] [facility] Comment on above: Performed By: #### P T, PTT, AMYL, CMP, LIPA, PHOS ####[facility] [place], [place] [phone]#### TRANSF ####[facility] [address] [place], [place] [phone] CONSULT PROGon 08-17-2017 CONSULT PROG HNO ID: [id number] thor: Jessee Lottervice: Cardiovascular DiseaseAuthor Type: PhysicianType: Consult Progress NoteFiled: 08/18/2017 10:29 PMNote Text:PROGRESS NOTE CARDIOLOGY SERVICESERVICE DATE: August 17, 2017SERVICE TIME: 12:48 PMASSESSMENT/PLANActive Problems:Atrial fibrillation. Persistent AF, ventricular rates +/- 100Heparin infusion is off. Inr was elevated, received vitamin K prior toprocedure. Today 1.0.s/p ERCP yesterdayPlan:Continue metoprolol.Spoke to surgical [employer] MATE Boubacar Espinoza. ->kimberley is for PTHC tomorrow.Will [...] edema.PULSES: Peripheral pulses present.MEDICATIONS:Current Facility-Administered Medications:phenol 1 [place] (CHLORASEPTIC) 1 [place] MUCOUS MEMBRANE (TOPICAL MOUTH ANDTHROAT) q 2 [...] 2017 : 12:48 PM PAGER/CONTACT #: Normal [facility] Comp Metabolic Panelon 08-17 Alanine aminotransferase (ALT) 90 U/L High 5-50 [facility] Comment on above: Performed By: #### P T, PTT, AMYL, CMP, LIPA, PHOS ####[address]#### TRANSF ####[place] [id number] Albumin 2.5 g/dL Low 3.5-5.0 [facility] Comment on above: Performed By: #### P T, PTT, AMYL, CMP, LIPA, PHOS ####[place] [address]#### TRANSF ####[place] [phone] Alkaline phosphatase (ALP) 304 U/L High 40-150 [facility] Comment on above: Performed By: #### P T, PTT, AMYL, CMP, LIPA, PHOS ####[place] [phone]#### TRANSF ####[place] [phone] Anion gap 12 mmol/L Normal 9-18 [facility] Comment on above: Performed By: #### P T, PTT, AMYL, CMP, LIPA, PHOS ####[place] [address]#### TRANSF ####[place] [phone] Aspartate aminotransferase (AST) 36 U/L Normal 7-40 [facility] Comment on above: Performed By: #### P T, PTT, AMYL, CMP, LIPA, PHOS ####[place] [address]#### TRANSF ####[place] [phone] Bilirubin (total) 1.1 mg/dL Normal 0.0-1.5 [facility] Comment on above: Performed By: #### P T, PTT, AMYL, CMP, LIPA, PHOS ####[place] [address]#### TRANSF ####[place] [phone] Calcium 8.2 mg/dL Low 8.5-10.5 [facility] Comment on above: Performed By: #### P T, PTT, AMYL, CMP, LIPA, PHOS ####[place] [address]#### TRANSF ####[place] [address] Chloride 110 mmol/L Normal 98-110 [facility] Comment on above: Result Comment: Revi ewed Performed By: #### P T, PTT, AMYL, CMP, LIPA, PHOS ####[place] [address]#### TRANSF ####[place] [address] [address] [place] [phone] CO2 26 mmol/L Normal 23-32 [facility] Comment on above: Performed By: #### P T, PTT, AMYL, CMP, LIPA, PHOS ####[place] [address]40446[address]#### TRANSF ####[place] [phone] Creatinine 0.68 mg/dL Low 0.70-1.40 [facility] Comment on above: Performed By: #### P T, PTT, AMYL, CMP, LIPA, PHOS ####[place] [address]#### TRANSF ####[place] [address] eGFR (non-black) mL/min/{1.73_m2} Normal >60 [facility] Comment on above: Performed By: #### P T, PTT, AMYL, CMP, LIPA, PHOS ####[address]#### TRANSF ####[place] [address] Glucose mass conc 158 mg/dL High 65-100 [facility] Comment on above: Performed By: #### P T, PTT, AMYL, CMP, LIPA, PHOS ####[address]#### TRANSF ####[place] [address] Potassium molar conc 3.2 mmol/L Low 3.5-5.0 [facility] Comment on above: Performed By: #### P T, PTT, AMYL, CMP, LIPA, PHOS ####[place] [address]#### TRANSF ####[place] [address] Protein 6.1 g/dL Normal 6.0-8.4 [facility] Comment on above: Performed By: #### P T, PTT, AMYL, CMP, LIPA, PHOS ####[place] [address]#### TRANSF ####[place] [address] Sodium 148 mmol/L High 135-146 [facility] Comment on above: Result Comment: Revi ewed Performed By: #### P T, PTT, AMYL, CMP, LIPA, PHOS ####[place] [address]#### TRANSF ####[place] [address] Urea nitrogen 14 mg/dL Normal 10-25 [facility] Comment on above: Performed By: #### P T, PTT, AMYL, CMP, LIPA, PHOS ####[place] [address]#### TRANSF ####[place] [phone] Magnesiumon 08-17-2017 Magnesium 2.4 mg/dL Normal 1.7-2.6 [facility] Comment on above: Performed By: #### P T, PTT, AMYL, CMP, LIPA, PHOS ####[place] [address]#### TRANSF ####[place] [phone] NUTRITIONon 08-17-2017 NUTRITION HNO ID: [id number] thor: Alise Yatesvice: Nutrition TherapyAuthor Type: Registered [...] 87 kgResting Metabolic Rate: 1661Estimated kilocalorie needs: 3465-8824 kilocalories determined by 25-28kcal/kgEstimated protein needs:113 - 130 grams determined by 1.3-1.5 g/kg DosingweightEstimated fluid needs: 2200 - 2400 milliliters based on 1 mL per kcalAdmission Weight: 87.4 kg (192 lb 9.6 oz)Current Weight: 87.4 kg (192 lb 9.6 oz)Body mass index is 29.28 kg/(m2). overweightALLERGIESNo Known AllergiesCurrent Facility-Administered Medications:phenol 1 [place] (CHLORASEPTIC) 1 [place] MUCOUS MEMBRANE (TOPICAL MOUTH ANDTHROAT) q 2 [...] 08/14/17 0659 08/14/17 0700 - 08/15/17 0659 [id number] - 08/16/17 0659 08/16/17 0700 - 08/17/17 [...] assistance and weekends please page theGroup Pager -[phone] [facility] PROGRESSon 08-17-2017 PROGRESS HNO ID: [id number] thor: Khadar Guo: General SurgeryAuthor Type: PhysicianType: Progress NotesFiled: 08/17/2017 2:42 PMNote Text:PROGRESS NOTES - SURGICAL SERVICESPATIENT NAME: Rocio Boudreaux: [id number] HISTORY OF PRESENT ILLNESS:No acute events overnight. [...] improved.Khadar Duffy MDFebruary 2017 2:42 PM Normal [facility] Phosphoruson 08-17-2017 Phosphate 2.3 mg/dL Low 2.5-4.5 [facility] Comment on above: Performed By: #### P T, PTT, AMYL, CMP, LIPA, PHOS ####[facility] [place], [place] [phone]#### TRANSF ####[facility] [address] [place], [place] [phone] Protimeon 08-17-2017 INR Coag RelTime (Bld) 1.0 {INR} Normal 0.9-1.3 [facility] Comment on above: Result Comment: Tayler min K Antagonist (VKA) Therapeutic Range: INR 2 to 3 (Target INR of 2.5)Note: For patients treated with VKA drugs, such as warfarin, the [place] [employer] 2012 Guideline recommends [...] al. Chest 2012, 141:7S-47SFelice RA, et al. [facility] 2017, 70: 252-289 Performed By: #### P T, PTT, AMYL, CMP, LIPA, PHOS ####[address] [phone]#### TRANSF ####[place] [address] [place], [place] [phone] PT Sec 10.6 sec Normal 9.7-13.0 [facility] Comment on above: Performed By: #### P T, PTT, AMYL, CMP, LIPA, PHOS ####[address] [phone]#### TRANSF ####[address] [phone] XR ERCP READ ONLYon 08-17-19 18 XR [...] Kerma: 134.0 mGyDose Area Product (DAP): 0.0 mGy*dvE4Zvflja time: 6:57 min:secRESULT: Images demonstrate an endoscope with contrast administration. A small amount of contrast is seen. The biliary system is not well opacified.IMPRESSION: Fluoroscopic assistance for ERCP procedureTranscriptionist: NII Transcribe Date/Time: Aug 18 2017 8:33ADictated by : REJI PATEL MDThis examination was interpreted and the report reviewed and electronically signed by: REJI PATEL MD on Aug 18 2017 8:34AM [id number] Normal [facility] CBCon 08-16-2017 Erythrocyte distribution width Auto Ratio (RBC) 15.4 % High 11.5-15.0 [facility] Comment on above: Performed By: #### P T, PTT, AMYL, CMP, LIPA, PHOS ####[place] [address]#### TRANSF ####[place] [phone] Erythrocytes (RBC) 3.49 10*6/uL Low 4.20-6.00 [facility] Comment on above: Performed By: #### P T, PTT, AMYL, CMP, LIPA, PHOS ####[place] [address]#### TRANSF ####[place] [address] Hematocrit (HCT) 29.9 % Low 39.0-51.0 [facility] Comment on above: Performed By: #### P T, PTT, AMYL, CMP, LIPA, PHOS ####[place] [address]#### TRANSF ####[place] [address] Hemoglobin mass conc (Bld) 9.8 g/dL Low 13.0-17.0 [facility] Comment on above: Performed By: #### P T, PTT, AMYL, CMP, LIPA, PHOS ####[place] [address]#### TRANSF ####[place] [address] MCH 28.1 pG Normal 26.0-34.0 [facility] Comment on above: Performed By: #### P T, PTT, AMYL, CMP, LIPA, PHOS ####[place] [address]#### TRANSF ####[place] [address] MCHC mass conc (RBC) 32.8 g/dL Normal 30.5-36.0 [facility] Comment on above: Performed By: #### P T, PTT, AMYL, CMP, LIPA, PHOS ####[place] [address]#### TRANSF ####[place] [address] MCV 85.7 fL Normal 80.0-100.0 [facility] Comment on above: Performed By: #### P T, PTT, AMYL, CMP, LIPA, PHOS ####[place] [address]#### TRANSF ####[place] [address] Platelet mean volume (PMV) 10.9 fL Normal 9.0-12.7 [facility] Comment on above: Performed By: #### P T, PTT, AMYL, CMP, LIPA, PHOS ####[place] [address]#### TRANSF ####[place] [address] Platelets 335 10*3/uL Normal 150-400 [facility] Comment on above: Performed By: #### P T, PTT, AMYL, CMP, LIPA, PHOS ####[place] [address]#### TRANSF ####[place] [phone] WBC (Leukocytes) 11.42 10*3/uL High 3.70-11.00 [facility] Comment on above: Performed By: #### P T, PTT, AMYL, CMP, LIPA, PHOS ####[facility] [place], [place] [phone]#### TRANSF ####[facility] [address] [place], [place] [phone] CONSULTon 08-16-2017 CONSULT HNO ID: [id number] thor: Jessee Lottervice: Cardiovascular DiseaseAuthor Type: PhysicianType: [...] 12.5 BIDPlan:Switch to metoprolol 25 TID.Monitor.CAD. Remote [place], PCI in 2013.No angina.Duodenal mass and obstructive jaundices/p perc drain placement.-plan is for ERCP with possible duodenal stent placement tomorrow.[facility] STAFF PHYSICIAN NOTE OF PERSONAL INVOLVEMENT IN [...] SERVICE: August 16, 2017TIME OF SERVICE: 4:36 [facility] COMPLAINT: abdominal painRocio Jackson is a 62 year old male, he lives in [facility]. 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 Followed by general surgery.s/p [...] Date- ANGIOPLASTY HX 05/15/2011 2 stents s/p [place];[facility]- CHOLECYSTECTOMY 08/11/2017 [facility]- PICC LINE INSERT/CONSULT 08/16/2017Past Family History:non contributorySocial [...] and imaging results.Most recent EKGTelemetrySIGNATURE: Sabrina Conchita, SUPPORT TEAM ASSOC PATIENT NAME: Rocio Sibley: August 16, 2017 : 3:56 PM PAGER/CONTACT #: [facility] Magnesiumon 08-16-2017 Magnesium 2.3 mg/dL Normal 1.7-2.6 [facility] Comment on above: Performed By: #### P T, PTT, AMYL, CMP, LIPA, PHOS ####[facility] [place] [phone]#### TRANSF ####[facility] [address] [place] [phone] NURSING PROGon 08-16-2017 NURSING PROG HNO ID: [id number] thor: Nolvia KenRn) Genevieve, RNService: PICC TeamAuthor Type: Registered NurseType: Nursing Progress NoteFiled: 08/16/2017 8:05 AMNote Text:PICC/VASCULAR ACCESS PROGRESS NOTESERVICE DATE: 08/16/2017SERVICE TIME: 8:00 amPICC line ordered, heparin gtt currently on hold, plan for patient toreceive TPN, Double lumen chloraguard PICC recommended. Will continue tofollow.SIGNATURE: Nolvia Vallejo RN PATIENT NAME: Rocio Sibley: August 16, 2017 : 8:03 AM PAGER/CONTACT #: [phone] [facility] NURSING PROG HNO ID: [id number] thor: Shavonne Mays, RNService: NursingAuthor Type: Registered NurseType: Nursing Progress NoteFiled: 08/16/2017 6:50 PMNote Text: Nursing Progress NotePatient Name: Rocio JacksonMRN: [id number] Location: [address]/[id number] ____Daily Note:0730: SROC alpha paged re: PT/INR [...] upper ABD pain. 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 Per Dr Duffy,stop heparin gtt and admin vitamin K. Spoke with SUPPORT TEAM ASSOC for GI service,repeat PT/INR ordered for 1200 tomorrow 08/17 prior to ERCP scheduled [id number], and if heparin gtt restarted prior to [...] 25 mg PO per new order, HR [id number]'s. SROC paged for chlorasetic spray and throat lozenge for pt c/othroat irritation from NGT.1800: Blood glucose 139, no SSI coverage required. Safety maintained.Pt resting in bed.This note was completed by: Shavonne Mays RN [facility] NURSING PROG HNO ID: [id number] thor: Deneen KenRn) Melanie, MOUSTAPHAervice: (none)Author Type: Registered NurseType: Nursing Progress NoteFiled: 08/16/2017 4:44 AMNote Text: Nursing Progress NotePatient Name: Rocio HayesN: [id number] Location: [place] [address]/[id number] ____Daily Note:Late entry 08/15 Labs drawn for start of heparin drip. INR2.0 Order to notify team when INR equal to or greater than 2.0.0350: Team notified that INR 2.0. Order to hold heparin drip until morninglabs back with INR results. Will continue to monitor.0428: Text page to surgery for bladder scan of 665 ml and change in NGcolor from bile to brownish orb2082: SROC up to see and assess pt. Continue to monitor bladder as pt ishaving no symptoms of discomfort at this time. Wait to start heparin dripuntil Am labs. Continue to monitor NG output.This note was completed by: Deneen Navarro RN [facility] PLAN OF CAREon 08-16-2017 PLAN OF CARE HNO ID: [id number] thor: Gissell Michael) Riyaervice: GastroenterologyAuthor Type: Nurse [...] Jackson. Pleasecall with any questions or concerns.M[facility] GastroenterologyOffice: Cell: [facility] PROCEDUREon 08-16-2017 PROCEDURE HNO ID: [id number] thor: Luis (Rn) Edmund, RNService: PICC TeamAuthor [...] Discussion: Shayan Shaffer RNCATHETER PLACEMENTBrand: Choloragard Lot: [id number] of Lumens: 2Type of PICC: Power Injectable [...] NoneCOMPLICATIONS: NonePatient Education Materials: Placed in chartThe [facility] Central Line Insertion checklist, attached to theCentral Line-Associated Bloodstream Infection Prevention Policy, wasutilized during this procedure.QUESTIONS or PROBLEMS: Page [phone] weekendSIGNATURE: Luis Shaffer RN PATIENT NAME: Rocio FrischDATE: August 16, 2017 : 8:35 AM PAGER/CONTACT PHONE: [facility] PROGRESSon 08-16-2017 PROGRESS HNO ID: [id number] thor: Lourdes Earle: GastroenterologyAuthor Type: PhysicianType: Progress NotesFiled: 08/16/2017 6:45 PMNote Text:[facility] Progress NoteSERVICE DATE: August 16, 2017SUBJECTIVENo abd pain, n/v, f/c. Afib overnight. Passing gas. No BM.OBJECTIVEMEDICATIONSCurre westerly [facility] medications:potassium phosphate 30 mmol in NaCl [...] 95%Weight:Height:Body mass index is 29.28 kg/(m2).GENERAL: NAD, [id number]: PERRLA, EOMI, normal OPCV: RRR, normal S1, [...] [facility] allowing us to participate in the care of this patient.Please call with any further questions or concerns.Lourdes Ferrari MD[facility]#: [phone]: Lourdes Ferrari MD PATIENT NAME: Rocio VizcarraTE: August 16, 2017 : 2:42 PM PAGER: [phone] [facility] PROGRESS HNO ID: [id number] thor: Khadar Guo: General SurgeryAuthor Type: PhysicianType: Progress NotesFiled: 08/16/2017 1:47 PMNote Text: SURGERY INPATIENT PROGRESS NOTESName: Rocio JacksonMRN: [id number] and Plan:62 year old male with near-obstructing [...] lb 9.6 oz) SpO2 92% BMI 29.28 kg/v8Ovpmps/Output Summary (Last 24 hours) at 08/16/17 0835Last [...] results tomorrow.Khadar Duffy MDFebruary 2017 1:47 PM [facility] PT EDon 08-16-2017 PT ED HNO ID: [id number] thor: Luis (Rn) Edmund, RNService: PICC TeamAuthor Type: Registered NurseType: Patient EducationFiled: 08/16/2017 8:34 AMNote Text:PATIENT EDUCATION TOPIC: PROCEDURE / SURGERY: Procedure/Surgery: PICCinsertion under US guidancePATIENT NAME: Rocio HayesN: [id number] LOCATION: [place] [address]/[id number] S TO LEARNCOGNITIVE ABILITY: Alert and orientedMOTIVATION TO LEARN: EagerInterestedFAMILY SUPPORT: High - Very involved in pt careINSTRUCTION PROVIDED TO: Patient and Family memberPATIENT LEARNS BEST BY: Individual InstructionVerbal InstructionFACTORS AFFECTING LEARNING: NonePHYSICAL LIMITATIONS AFFECTING LEARNING: NoneLEARNING RESPONSEDIAGNOSIS: ADULT: Duodenal obstructionPATIENT/FAMILY RESPONSE: Verbalizes understanding of: [id number]-ZFTAOGAEYAYZOBASDJCNK-O orrect actions to take to reduce post procedurecomplicationsPRE-AZ OCEDURE INSTRUCTIONS-Correct action to take to follow pre-procedureinstructionsMET HOD OF INSTRUCTION: Individual instructionVerbal instructionFOLLOW-UP PLAN: Patient instructed to call with any further issuesFollow-up with Primary CareINSTRUCTIONAL AIDS USED: NASUPPLEMENTAL MATERIAL PROVIDED TO PATIENT: NoneREFERRAL (RECOMMENDATION): NoneElectronically Signed By: Luis Shaffer RN [facility] Phosphoruson 08-16-2017 Phosphate 2.1 mg/dL Low 2.5-4.5 [facility] Comment on above: Performed By: #### P T, PTT, AMYL, CMP, LIPA, PHOS ####[facility] [place], [place] [phone]#### TRANSF ####[facility] [place], [place] [phone] Protimeon 08-16-2017 INR Coag RelTime (Bld) 2.0 {INR} High 0.9-1.3 [facility] Comment on above: Result Comment: Tayler min K Antagonist (VKA) Therapeutic Range: INR 2 to 3 (Target INR of 2.5)Note: For patients treated with VKA drugs, such as warfarin, the [place] [employer] 2012 Guideline recommends [...] al. Chest 2012, 141:7S-47SNishimivette RA, et al. [facility] 2017, 70: 252-289 Performed By: #### P T, PTT, AMYL, CMP, LIPA, PHOS ####[place] [address]#### TRANSF ####[address] [phone] PT Sec 19.5 sec High 9.7-13.0 [facility] Comment on above: Performed By: #### P T, PTT, AMYL, CMP, LIPA, PHOS ####[place] [phone]#### TRANSF ####[address] [phone] XR CHEST 1V PORT POST PICC - [...] place; Check tip position following PICC placement.M: [id number]: 08/13/2017RESULT:1. Lines / Tubes: a. Interval placement [...] ease, it is acceptable for venous access use.Sleep Manager: PSCShefali Transcribe Date/Time: Aug 16 2017 10:15ADictated by : AURORA ROMERO MDThis examination was interpreted and the report reviewed and electronically signed by: AURORA ROMERO MD on Aug 16 2017 10:16AM [id number] [facility] ALLIED HEALTHon 08-15-2017 ALLIED HEALTH HNO ID: [id number] thor: Jennifer Win CtService: (none)Author Type: (none)Type: Allied HealthFiled: 08/15/2017 2:49 PMNote Text: Radiology Service Progress NotePATIENT NAME: Rocio JacksonMRN: [id number] OF SERVICE: August 15, 2017TIME: 2:48 PMPATIENT IDENTITY VERIFICATION COMPLETED USING TWO (2) METHODS: Patientconfirmed name verbally and ID band matches..PATIENT GENDER DATA: MalePATIENT RELEVANT IMPLANT DATA REVIEWED: Not ApplicableRADIOLOGY DEPARTMENT: CT; Exam(s) Completed: ABSCESS DRAINAGEPERIPHERAL IV DATA: Not applicableSIGNED BY: Jennifer Win CtFebruary 2017 2:48 PM [facility] BRIEF OP NOTon 08-15-2017 BRIEF OP NOT HNO ID: [id number] thor: Reji Guillen: RadiologyAuthor Type: PhysicianType: Brief [...] 15, 2017 : 2:45 PM PAGER/CONTACT #: [phone] Normal [facility] Blood Cultureon 08-15-2017 Bacteria culture Sp. Request/Comment: - The blood culture bottles are underfilled. Adding volume lower or higher than the 8 to 10 mL per bottle, which is the manufacturers recommended volume, may adversely affect the recovery and/or detection of organisms. 10.9MLCulture Result - No growth 5 days Normal [facility] Comment on above: Performed By: #### P T, PTT, AMYL, CMP, LIPA, PHOS ####[place] [address]#### TRANSF ####[place] [phone] Bacteria culture Culture Result - No growth 5 days Normal [facility] Comment on above: Performed By: #### P T, PTT, AMYL, CMP, LIPA, PHOS ####[place] [address]#### TRANSF ####[place] [address] [address] Av[address]la [place] [phone] CBCon 08-15-2017 Erythrocyte distribution width Auto Ratio (RBC) 15.2 % High 11.5-15.0 [facility] Comment on above: Performed By: #### P T, PTT, AMYL, CMP, LIPA, PHOS ####[place] [address]#### TRANSF ####[place] [address] Erythrocytes (RBC) 3.46 10*6/uL Low 4.20-6.00 [facility] Comment on above: Performed By: #### P T, PTT, AMYL, CMP, LIPA, PHOS ####[place] [address]#### TRANSF ####[place] [address] Hematocrit (HCT) 29.3 % Low 39.0-51.0 [facility] Comment on above: Performed By: #### P T, PTT, AMYL, CMP, LIPA, PHOS ####[place] [address]#### TRANSF ####[place] [address] Hemoglobin mass conc (Bld) 9.7 g/dL Low 13.0-17.0 [facility] Comment on above: Performed By: #### P T, PTT, AMYL, CMP, LIPA, PHOS ####[place] [address]#### TRANSF ####[place] [address] MCH 28.0 pG Normal 26.0-34.0 [facility] Comment on above: Performed By: #### P T, PTT, AMYL, CMP, LIPA, PHOS ####[place] [address]#### TRANSF ####[place] [address] MCHC mass conc (RBC) 33.1 g/dL Normal 30.5-36.0 [facility] Comment on above: Performed By: #### P T, PTT, AMYL, CMP, LIPA, PHOS ####[place] [address]#### TRANSF ####[address] Av[address] [place] [phone] MCV 84.7 fL Normal 80.0-100.0 [facility] Comment on above: Performed By: #### P T, PTT, AMYL, CMP, LIPA, PHOS ####[place] [phone]#### TRANSF ####[place] [phone] Platelet mean volume (PMV) 10.2 fL Normal 9.0-12.7 [facility] Comment on above: Performed By: #### P T, PTT, AMYL, CMP, LIPA, PHOS ####[place] [address]#### TRANSF ####[place] [address] Platelets 302 10*3/uL Normal 150-400 [facility] Comment on above: Performed By: #### P T, PTT, AMYL, CMP, LIPA, PHOS ####[address]#### TRANSF ####[place] [phone] WBC (Leukocytes) 12.79 10*3/uL High 3.70-11.00 [facility] Comment on above: Performed By: #### P T, PTT, AMYL, CMP, LIPA, PHOS ####[place] [phone]#### TRANSF ####[place] [phone] Erythrocyte distribution width Auto Ratio (RBC) 15.3 % High 11.5-15.0 [facility] Comment on above: Performed By: #### P T, PTT, AMYL, CMP, LIPA, PHOS ####[place] [phone]#### TRANSF ####[place] [address] Erythrocytes (RBC) 3.99 10*6/uL Low 4.20-6.00 [facility] Comment on above: Performed By: #### P T, PTT, AMYL, CMP, LIPA, PHOS ####[place] [address]#### TRANSF ####[place] [address] Hematocrit (HCT) 33.4 % Low 39.0-51.0 [facility] Comment on above: Performed By: #### P T, PTT, AMYL, CMP, LIPA, PHOS ####[place] [address]#### TRANSF ####[place] [address] Hemoglobin mass conc (Bld) 11.1 g/dL Low 13.0-17.0 [facility] Comment on above: Performed By: #### P T, PTT, AMYL, CMP, LIPA, PHOS ####[place] [address]#### TRANSF ####[place] [address] MCH 27.8 pG Normal 26.0-34.0 [facility] Comment on above: Performed By: #### P T, PTT, AMYL, CMP, LIPA, PHOS ####[place] [address]#### TRANSF ####[place] [phone] MCHC mass conc (RBC) 33.2 g/dL Normal 30.5-36.0 [facility] Comment on above: Performed By: #### P T, PTT, AMYL, CMP, LIPA, PHOS ####[place] [address]#### TRANSF ####[place] [phone] MCV 83.7 fL Normal 80.0-100.0 [facility] Comment on above: Performed By: #### P T, PTT, AMYL, CMP, LIPA, PHOS ####[place] [address]#### TRANSF ####[place] [phone] Platelet mean volume (PMV) 11.9 fL Normal 9.0-12.7 [facility] Comment on above: Performed By: #### P T, PTT, AMYL, CMP, LIPA, PHOS ####[place] [address]#### TRANSF ####[place] [phone] Platelets 328 10*3/uL Normal 150-400 [facility] Comment on above: Performed By: #### P T, PTT, AMYL, CMP, LIPA, PHOS ####[place] [address]#### TRANSF ####[place] [phone] WBC (Leukocytes) 16.33 10*3/uL High 3.70-11.00 [facility] Comment on above: Performed By: #### P T, PTT, AMYL, CMP, LIPA, PHOS ####[place] [address]#### TRANSF ####[place] [phone] CONSULTon 08-15-2017 CONSULT HNO ID: [id number] thor: Gissell KenLeonard Morse HospitalLyric SmithkService: GastroenterologyAutvirginia Type: Nurse PractitionerType: ConsultsFiled: 08/15/2017 4:44 PMNote Text: -Attestation signed by Lourdes Ferrari at 08/17/2017 10:00 AMATTENDING NOTE:?I performed a history and physical examination of the patient and supervisedand discussed plan of care and management with the PA/AVIATION BOATSWAIN'S MATE. I reviewed thePA/AVIATION BOATSWAIN'S MATE's note and agree with the documented findings and plan of care.? ?Thank you for allowing us to participate in the care of this patient. Pleasecall with any questions or concerns.Lourdes Ferrari MDVernal GastroenterologyPanorthwest medical center [phone] --------CONSULT: [facility] SERVICESERVICE DATE: 08/15/2017SERVICE TIME: 9:04 AMREASON FOR CONSULT: ERCPREQUESTING PHYSICIAN: Dr. Marti [facility] PHYSICIAN: No primary care provider on file.SubjectiveMr. Jackson is a 62 year old male with PMH of CAD s/p stent x2, type 2 DMon metformin, HTN, glaucoma, PSH of cholecystectomy (08/11/2017, ERCP08/13/17) who was transferred from [facility] for management of partial duodenalobstruction. 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 [facility] 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 He was transferred to [facility] for further evaluationand treatment. Following admission [...] Date- ANGIOPLASTY HX 05/15/2011 2 stents s/p [place];[facility]- [facility]2017 [facility].Social HistorySubstance Use Topics- [...] by mouth once daily. Disp: Rfl:08/10/[address] [place] [address] medications:oxyCODONE IR 5 mg tab(s) (ROXICODONE) 5 [...] control as per primary service-Maintain NPO-IV Cipro electrical continuity inspector for ERCP (ordered)D/w Dr. Nava and Dr. FerrariSIGNATURE: Gissell Serrato CNP PATIENT NAME: Rocio FrischDATE: August 15, 2017 : 9:04 AM PAGER: [phone] [facility] [address] PERIT/RETROP FL BIon 08-15-2017 [...] with administration of agent, ends when continuous [id number] time ends): 14 minutese) Patient monitoring: Continuous ECG, pulse oximetry and cardiopulmonary monitoring was performed during the entire procedure by both the physician and nurse.-I, the procedural radiologist personally supervised and directed the independent trained observer who assisted in monitoring the patient's level of consciousness and physiological status throughout the procedure.Catheter/ needle used: 5 Montserratian Yueh, 8 Montserratian pigtail.Imaging guidance with images saved into the permanent archive: CTTechnique: Using CT guidance a 5 Montserratian catheter was inserted into the abscess collection in the gastrohepatic location. Serial dilatation was performed over a wire and an 8 Montserratian pigtail catheter was inserted into the abscess collection. Approximately 110 cc of dark red serous fluid was obtained.Sample obtained: As aboveEstimated blood loss: Less than 1 ccComplications: NoneIMPRESSION: CT-guided abscess drainage of gastrohepatic fluid collection. Nearly the entire fluid collection was drained during this procedure. An 8 Montserratian pigtail catheter remains in the location of the fluid collection and was connected to an accordion drainage bag. Patient was sent back to the room with the catheter.Sleep Manager: PSCB Transcribe Date/Time: Aug 15 2017 5:47PDictated by : REJI PATEL MDThis examination was interpreted and the report reviewed and electronically signed by: REJI PATEL MD on Aug 15 2017 6:07PM [id number] Normal [facility] Comp Metabolic Panelon 08-15 Alanine aminotransferase (ALT) 205 U/L High 5-50 [facility] Comment on above: Performed By: #### P T, PTT, AMYL, CMP, LIPA, PHOS ####[place] [address]#### TRANSF ####[place] [phone] Albumin 2.5 g/dL Low 3.5-5.0 [facility] Comment on above: Performed By: #### P T, PTT, AMYL, CMP, LIPA, PHOS ####[place] [address]#### TRANSF ####[place] [phone] Alkaline phosphatase (ALP) 515 U/L High 40-150 [facility] Comment on above: Performed By: #### P T, PTT, AMYL, CMP, LIPA, PHOS ####[place] [address]#### TRANSF ####[place] [phone] Anion gap 14 mmol/L Normal 9-18 [facility] Comment on above: Performed By: #### P T, PTT, AMYL, CMP, LIPA, PHOS ####[place] [address]#### TRANSF ####[place] [phone] Aspartate aminotransferase (AST) 74 U/L High 7-40 [facility] Comment on above: Performed By: #### P T, PTT, AMYL, CMP, LIPA, PHOS ####[place] [address]#### TRANSF ####[place] [phone] Bilirubin (total) 1.7 mg/dL High 0.0-1.5 [facility] Comment on above: Performed By: #### P T, PTT, AMYL, CMP, LIPA, PHOS ####[place] [address]#### TRANSF ####[address] AvTony[place] Ville [phone] Calcium 8.7 mg/dL Normal 8.5-10.5 [facility] Comment on above: Performed By: #### P T, PTT, AMYL, CMP, LIPA, PHOS ####[place] [address]#### TRANSF ####[place] [phone] Chloride 98 mmol/L Normal 98-110 [facility] Comment on above: Performed By: #### P T, PTT, AMYL, CMP, LIPA, PHOS ####[place] [address]#### TRANSF ####[place] [phone] CO2 24 mmol/L Normal 23-32 [facility] Comment on above: Performed By: #### P T, PTT, AMYL, CMP, LIPA, PHOS ####[place] [address]#### TRANSF ####[place] [phone] Creatinine 0.62 mg/dL Low 0.70-1.40 [facility] Comment on above: Performed By: #### P T, PTT, AMYL, CMP, LIPA, PHOS ####[place] [address]#### TRANSF ####[address] [place] [place] [phone] eGFR (non-black) mL/min/{1.73_m2} Normal >60 [facility] Comment on above: Performed By: #### P T, PTT, AMYL, CMP, LIPA, PHOS ####[place] [address]#### TRANSF ####[place] [address] [address] [place] [phone] Glucose mass conc 151 mg/dL High 65-100 [facility] Comment on above: Performed By: #### P T, PTT, AMYL, CMP, LIPA, PHOS ####[address]#### TRANSF ####[place] [phone] Potassium molar conc 3.5 mmol/L Normal 3.5-5.0 [facility] Comment on above: Performed By: #### P T, PTT, AMYL, CMP, LIPA, PHOS ####[place] [address]#### TRANSF ####[place] [phone] Protein 6.4 g/dL Normal 6.0-8.4 [facility] Comment on above: Performed By: #### P T, PTT, AMYL, CMP, LIPA, PHOS ####[place] [address]#### TRANSF ####[address] [place] [phone] Sodium 136 mmol/L Normal 135-146 [facility] Comment on above: Performed By: #### P T, PTT, AMYL, CMP, LIPA, PHOS ####[place] [address]#### TRANSF ####[address] [place] [phone] Urea nitrogen 12 mg/dL Normal 10-25 [facility] Comment on above: Performed By: #### P T, PTT, AMYL, CMP, LIPA, PHOS ####[facility] [place], [place] [phone]#### TRANSF ####[facility] [address] [place], [place] [phone] HISTORY PHYSICALon HISTORY PHYSICAL HNO ID: [id number] thor: Reji Samaniegoe: RadiologyAuthor Type: PhysicianType: HANDPFiled: [...] Date- ANGIOPLASTY HX 05/15/2011 2 stents s/p [place];[facility]- [facility]2017 [facility] as of 08/13/17 2301Medication Sig Last Dose Takingaspirin, enteric coated (ECOTRIN LOW STRENGTH) 81 mg EC tablet Take 162 mgby mouth once daily. Past Week at Unknown time Yeslisinopril 2.5 mg tablet Take 2.5 mg by mouth once daily. 08/11/2017 [id number] Yesatorvastatin (LIPITOR) 40 mg tablet Take 40 [...] August 15, 2017 : 2:05 PM PAGER: [phone] Normal [facility] Magnesiumon 08-15-2017 Magnesium 2.0 mg/dL Normal 1.7-2.6 [facility] Comment on above: Performed By: #### P T, PTT, AMYL, CMP, LIPA, PHOS ####[facility] [place] [phone]#### TRANSF ####[facility] [address] [place], [place] [phone] NURSING PROGon 08-15-2017 NURSING PROG HNO ID: [id number] thor: Saima Kramer (Rn) MOUSTAPHA Richardsonervice: (none)Author Type: Registered NurseType: Nursing Progress NoteFiled: 08/15/2017 6:48 PMNote Text: Nursing Progress NotePatient Name: Rocio JacksonMRN: [id number] Location: [address]/NS-[id number] ____Daily Note:Pt phos level 2.2 - text [...] note was completed by: Saima Richardson RN [facility] NUTRITIONon 08-15-2017 NUTRITION HNO ID: [id number] thor: Alana Greenwood (Carlos) DunnService: Nutrition TherapyAuthor Type: Registered DietitianType: NutritionFiled: 08/15/2017 1:17 PMNote Text:NUTRITION SUPPORT TEAMTOPIC: NUTRITION SUPPORT PROGRESS NOTEPATIENT NAME: Rocio JacksonMRN: [id number] OF : 1955DATE: 08/15/2017Nutritional Status: SEVERE PROTEIN [...] 87 kgResting Metabolic Rate: 1661Estimated kilocalorie needs: 7888-7907 kilocalories determined by 25-28kcal/kgEstimated protein needs:113 - [...] lb 9.6 oz) SpO2 92% BMI 29.28 kg/c5Buiypmz Weight: Weight: 87.4 kg (192 lb 9.6 [...] -- --CA 8.7 -- 8.5 8.9Recent Labs 323738OPTNDB 7*Accuchecks:Glucose, Point of Care (mg/dL)Date Value08/15/2017 141 (A)08/15/2017 154 (A)08/15/2017 138 (A)08/14/2017 148 (A)Alana Barber RD, LDPager: For further assistance and weekends please page the Group Pzext-[phone] :3 [facility] PROGRESSon 08-15-2017 PROGRESS HNO ID: [id number] thor: Kael (Georges) ASHELY Hernandezervice: General SurgeryAuthor Type: ResidentType: Progress NotesFiled: 08/15/2017 7:29 PMNote Text:GENERAL SURGERY PROGRESS NOTENAME: Rociomarisa JacksonMRN: [id number] 2017 7:20 PMASSESSMENT AND PLAN:Mr. Jackson is [...] for TPN- Dispo: ARLINE HERNANDEZ MDGeneral SurgeryPager: [phone]*On weekends or nights (after 1800) please contact the surgery on callpager.*SUBJECTIVE: No acute issues overnight and during the day. Restingcomfortably in bed.OBJECTIVE:BP 109/58 Pulse 78 Temp 36.3 ?C (97.4 ?F) (Oral) Resp 18 Ht 172.7cm (5' 8 ) Wt 87.4 kg (192 lb 9.6 oz) SpO2 94% BMI 29.28 kg/i6NUDSQCS: alert, NADLUNGS: breathing comfortablyCARDIAC: irregularABDOMEN: mildly TTP in upper abd, mildly distended, softEXTREMITIES: warm and well perfusedDRAINS/LINES: bilious drainage from JPDate 08/14/17 1500 - 08/15/17 0659 08/15/17 0700 - 08/16/17 0659Shift 2739-1439 9573-0775 24 Hour Total 0966-0492 2561-5990 9671-4789 24Hour TotalINTAKE PO 60 60 30 30 PO 60 60 30 30 IV 2018 2018 860 541 7916 NS 0.9% 2018 2018 573 575 4784 Irrigants 20 40 30 30 Irrigant/Flush Amount In (GI Feed/Drain 08/14/17 0109 Nasogastric RightNaris 18 Fr) 20 40 30 30 Shift Total 2098 2118 744 665 1409OUTPUT Urine 575 1125 425 425 Void (ml) 575 1125 425 425 Tubes 424 190 9156 330 445 775 Drain/Tube Output (Drain/Tube Admission to [facility] RightLower Quadrant Abdomen) 260 30 370 140 70 210 Drain/Tube Output (Drain/Tube 08/15/17 1530 Assessment Right UpperAbdomen) 275 275 Output (GI Feed/Drain 08/14/17108 Nasogastric Right Naris 18 Fr) 921237 1813 190 100 290 # of BMs Number [...] -- 395*ALT 205* -- 370* -- 418* [facility] PROGRESS HNO ID: [id number] thor: Khadar DuffyService: General SurgeryAuthor Type: PhysicianType: [...] course.Khadar Duffy MDFebruary 2017 5:53 PM(late entry) [facility] PT EDon 08-15-2017 PT ED HNO ID: [id number] thor: Dhara (Rn) MOUSTAPHA Riveroervice: RadiologyAuthor Type: [...] instructionPATIENT / FAMILY RESPONSE: Verbalizes understanding of: OZKC-UZKEHSJWJDDKGZEJRLQBS-D orrect actions to take to reduce post procedurecomplicationsPRE-AZ OCEDURE INSTRUCTIONS-Correct action to take to follow pre-procedureinstructionsFOL LOW-UP PLAN: Complete - No need for follow-upSUPPLEMENTAL MATERIAL: Title of written material: Abcess drain andSedation informationREFERRAL (RECOMMENDATION): NoneElectronically Signed By: Dhara Rivero RN In Department: [address] PTT,Anticoag Therapyon 08-15 aPTT 39.8 s High 23.0-32.4 [facility] Comment on above: Result [...] laboratory APTT reagent in use throughout the [facility]. Performed By: #### P T, PTT, AMYL, CMP, LIPA, PHOS ####[place] [phone]#### TRANSF ####[place] [address] [address] [place] [phone] Phosphoruson 08-15-2017 Phosphate 2.2 mg/dL Low 2.5-4.5 [facility] Comment on above: Performed By: #### P T, PTT, AMYL, CMP, LIPA, PHOS ####[place] [phone]#### TRANSF ####[place] [address] [address] [place] [phone] Protimeon 08-15-2017 INR Coag RelTime (Bld) 2.0 {INR} High 0.9-1.3 [facility] Comment on above: Result Comment: Tayler min K Antagonist (VKA) Therapeutic Range: INR 2 to 3 (Target INR of 2.5)Note: For patients treated with VKA drugs, such as warfarin, the [place] [employer] 2012 Guideline recommends [...] al. Chest 2012, 141:7S-47SFelice RA, et al. [facility] 2017, 70: 252-289 Performed By: #### P T, PTT, AMYL, CMP, LIPA, PHOS ####[place] [address] [place] [phone]#### TRANSF ####[place] [address] [place] [phone] PT Sec 19.4 sec High 9.7-13.0 [facility] Comment on above: Performed By: #### P T, PTT, AMYL, CMP, LIPA, PHOS ####[place] [address] [place] [phone]#### TRANSF ####[place] [address] [address] [place], [place] [phone] Urine Cultureon 08-15-2017 Urine culture, bacteria Sp. [...] <=0.25 FErtapenem SUSCEPTIBLE <=0.5 F Critically abnormal [facility] Comment on above: Performed By: #### P T, PTT, AMYL, CMP, LIPA, PHOS ####[facility] [place] [phone]#### TRANSF ####[facility] [place], [place] [phone] Wound Culture/Stainon 2017 Wound Culture/Stain Sp. Request/Comment: - Specimen received in sterile container.Smear Result - Rare Gram positive cocci in pairs and chains --> ABNORMAL ALERT No Polymorphonuclear LeukocytesCulture Result - Moderate Streptococcus mutans group --> ABNORMAL ALERTORGANISM: Streptococcus mutans groupMETHOD: Minimum inhibitory concentration (VIZION)Antibiotic Interp JOLENE StatusPenicillin G SUSCEPTIBLE <=0.03 FVancomycin SUSCEPTIBLE <=0.5 FCeftriaxone SUSCEPTIBLE <=0.12 FClindamycin SUSCEPTIBLE <=0.12 F Critically abnormal [facility] Comment on above: Performed By: #### W CUL ####[place] [address] [place], [place] [phone] ALLIED HEALTHon 08-14-2017 ALLIED HEALTH HNO ID: [id number] thor: Albert Sutherland: (none)Author Type: (none)Type: Allied HealthFiled: 08/14/2017 7:17 PMNote Text: Radiology Service Progress NotePATIENT NAME: Rocio Boudreaux: [id number] OF SERVICE: August 14, 2017TIME: 7:16 PMPATIENT IDENTITY VERIFICATION COMPLETED USING TWO (2) METHODS: Patientconfirmed name verbally and ID band matches..PATIENT GENDER DATA: MalePATIENT RELEVANT IMPLANT DATA REVIEWED: Not ApplicableCONTRAST INDUCED NEPHROPATHY RISK FACTORS: Patient age > 60 yearsCREATININE:CreatinineDa te Value Ref Range Mythad2108/14/2017 0.61 (L) 0.70 - 1.40 mg/dL Final08/14/2017 0.63 (L) 0.70 - 1.40 mg/dL Final eGFR-All Other RacesDate Value Ref Range Witcsw8208/14/2017 >60 >60 . Final eGFR- AmericanDate Value Ref Range Dyfkfg6308/14/2017 >60 >60 Final P.O.C.T. RESULTS: POC done: Yes, See Lab Tab August 14, 2017RADIOLOGIST NOTIFIED?: LacyERGIES: Reviewed and unchangedCONTRAST ALLERGY: NO.PERIPHERAL IV ACCESS: Inpatient: see LDA documentationRADIOLOGY DEPARTMENT: CT; Exam(s) Completed: Abdomen/Pelvis , Chest andPancreasSIGNED BY: Albert Guerreromusalane regional medical center 2017 7:16 PM Normal [facility] ALLIED HEALTH HNO ID: [id number] thor: Denise Graham RTService: (none)Author Type: (none)Type: Allied HealthFiled: 08/14/2017 1:32 AMNote Text: Radiology Service Progress NotePATIENT NAME: Rocio JacksonN: [id number] OF SERVICE: August 14, 2017TIME: 1:32 AMPATIENT IDENTITY VERIFICATION COMPLETED USING TWO (2) METHODS: Patientconfirmed name verbally and ID band matches..PATIENT GENDER DATA: MalePATIENT RELEVANT IMPLANT DATA REVIEWED: Not ApplicableRADIOLOGY DEPARTMENT: General X-ray: Exam(s) Completed: Chest X-RayAbdomen X-Ray AbdomenPERIPHERAL IV DATA: Not applicableSIGNED BY: Denise Graham RTMoody [facility] 2017 1:32 AM Normal [facility] APTTon 08-14-2017 aPTT 31.6 s Normal 23.0-32.4 [facility] Comment on above: Result [...] laboratory APTT reagent in use throughout the [facility]. Performed By: #### P T, PTT, AMYL, CMP, LIPA, PHOS ####[facility] [place], [place] [phone]#### TRANSF ####[facility] [place], [place] [phone] aPTT 30.2 s Normal 23.0-32.4 [facility] Comment on above: Result [...] laboratory APTT reagent in use throughout the [facility]. Performed By: #### P T, PTT, AMYL, CMP, LIPA, PHOS ####[place] [phone]#### TRANSF ####[place] [address] [place], [place] [phone] Amylaseon 08-14-2017 Amylase 59 U/L Normal 0-137 [facility] Comment on above: Performed By: #### P T, PTT, AMYL, CMP, LIPA, PHOS ####[place] [address]#### TRANSF ####[place] [address] [place], [place] [phone] Bilirubin, Fluidon 8 Bilirubin (direct) 6.1 mg/dL Critically abnormal See Comment [facility] Comment on above: Result [...] document C49A. SAIMA Contreras: Clinical Laboratory Standards [place]: 2007.2. Nani Y, Javierata T, Andra Y et al. The Determination of Bile Leakage in Complex Hepatectomy Based on the Guidelines of the International Study Group of Liver Surgery. World J Surg. 2014 38:168-176.This test was developed and its performance characteristics determined by [facility]'s [facility] Pathology and Laboratory Medicine [place] ([facility]).It has not been cleared or approved by the FDA. [facility] is regulated under CLIA as qualified to perform high-complexity testing.This test is used for clinical purposes. It should not be regarded as investigational or for research. Performed By: #### P T, PTT, AMYL, CMP, LIPA, PHOS ####[place] [address]#### TRANSF ####[place] [phone] Fluid Other Normal [facility] Comment on above: Result Comment: ROMINA HERNÁNDEZ Performed By: #### P T, PTT, AMYL, CMP, LIPA, PHOS ####[place] [address]#### TRANSF ####[place] [phone] CBCon 08-14-2017 Erythrocyte distribution width Auto Ratio (RBC) 15.2 % High 11.5-15.0 [facility] Comment on above: Performed By: #### P T, PTT, AMYL, CMP, LIPA, PHOS ####[place] [address]#### TRANSF ####[address] [place] [phone] Erythrocytes (RBC) 3.70 10*6/uL Low 4.20-6.00 [facility] Comment on above: Performed By: #### P T, PTT, AMYL, CMP, LIPA, PHOS ####[place] [address]#### TRANSF ####[address] [place] [phone] Hematocrit (HCT) 31.7 % Low 39.0-51.0 [facility] Comment on above: Performed By: #### P T, PTT, AMYL, CMP, LIPA, PHOS ####[place] [address]#### TRANSF ####[place] [address] Hemoglobin mass conc (Bld) 10.7 g/dL Low 13.0-17.0 [facility] Comment on above: Performed By: #### P T, PTT, AMYL, CMP, LIPA, PHOS ####[place] [address]#### TRANSF ####[place] [address] MCH 28.9 pG Normal 26.0-34.0 [facility] Comment on above: Performed By: #### P T, PTT, AMYL, CMP, LIPA, PHOS ####[place] [address]#### TRANSF ####[place] [address] MCHC mass conc (RBC) 33.8 g/dL Normal 30.5-36.0 [facility] Comment on above: Performed By: #### P T, PTT, AMYL, CMP, LIPA, PHOS ####[place] [address]#### TRANSF ####[place] [address] MCV 85.7 fL Normal 80.0-100.0 [facility] Comment on above: Performed By: #### P T, PTT, AMYL, CMP, LIPA, PHOS ####[place] [address]#### TRANSF ####[address]C[place], [place] [phone] Platelet mean volume (PMV) 12.1 fL Normal 9.0-12.7 [facility] Comment on above: Performed By: #### P T, PTT, AMYL, CMP, LIPA, PHOS ####[address]#### TRANSF ####[place] [phone] Platelets 285 10*3/uL Normal 150-400 [facility] Comment on above: Performed By: #### P T, PTT, AMYL, CMP, LIPA, PHOS ####[place] [address]#### TRANSF ####[place] [phone] WBC (Leukocytes) 11.53 10*3/uL High 3.70-11.00 [facility] Comment on above: Performed By: #### P T, PTT, AMYL, CMP, LIPA, PHOS ####[place] [phone]#### TRANSF ####[address] [phone] CT CHEST W IVCONon 8 CT CHEST [...] pelvis.IMPRESSION: Bilateral effusions with associated atelectasis versus infiltrates.Sleep Manager : NII Transcribe Date/Time: Aug 14 2017 8:43PDictated by : AURORA ROMERO MDThis examination was interpreted and the report reviewed and electronically signed by: AURORA ROMERO MD on Aug 14 2017 8:46PM [id number] Normal [facility] CT PANCREAS/PELVIS W IVCONon [...] ROMERO MD on Aug 15 2017 5:11PM [id number] Normal [facility] Comp Metabolic Panelon 08-14 Alanine aminotransferase (ALT) 370 U/L High 5-50 [facility] Comment on above: Performed By: #### P T, PTT, AMYL, CMP, LIPA, PHOS ####[place] [address]#### TRANSF ####[phone] Albumin 2.9 g/dL Low 3.5-5.0 [facility] Comment on above: Performed By: #### P T, PTT, AMYL, CMP, LIPA, PHOS ####[place] [address]#### TRANSF ####[place] [phone] Alkaline phosphatase (ALP) 727 U/L High 40-150 [facility] Comment on above: Performed By: #### P T, PTT, AMYL, CMP, LIPA, PHOS ####[place] [address]#### TRANSF ####[place] [phone] Anion gap 15 mmol/L Normal 9-18 [facility] Comment on above: Performed By: #### P T, PTT, AMYL, CMP, LIPA, PHOS ####[place] [address]#### TRANSF ####[place] [phone] Aspartate aminotransferase (AST) 285 U/L High 7-40 [facility] Comment on above: Performed By: #### P T, PTT, AMYL, CMP, LIPA, PHOS ####[place] [address]#### TRANSF ####[place] [phone] Bilirubin (total) 2.3 mg/dL High 0.0-1.5 [facility] Comment on above: Performed By: #### P T, PTT, AMYL, CMP, LIPA, PHOS ####[place] [address]#### TRANSF ####[place] [phone] Calcium 8.5 mg/dL Normal 8.5-10.5 [facility] Comment on above: Performed By: #### P T, PTT, AMYL, CMP, LIPA, PHOS ####[place] [address]#### TRANSF ####[place] [phone] Chloride 96 mmol/L Low 98-110 [facility] Comment on above: Performed By: #### P T, PTT, AMYL, CMP, LIPA, PHOS ####[place] [address]#### TRANSF ####[place] [phone] CO2 22 mmol/L Low 23-32 [facility] Comment on above: Performed By: #### P T, PTT, AMYL, CMP, LIPA, PHOS ####[place] [address]#### TRANSF ####[place] [phone] Creatinine 0.61 mg/dL Low 0.70-1.40 [facility] Comment on above: Performed By: #### P T, PTT, AMYL, CMP, LIPA, PHOS ####[place] [address]#### TRANSF ####[place] [phone] eGFR (non-black) mL/min/{1.73_m2} Normal >60 [facility] Comment on above: Performed By: #### P T, PTT, AMYL, CMP, LIPA, PHOS ####[address]#### TRANSF ####[place] [address] [address] [place] [phone] Glucose mass conc 147 mg/dL High 65-100 [facility] Comment on above: Performed By: #### P T, PTT, AMYL, CMP, LIPA, PHOS ####[place] [address]#### TRANSF ####[place] [phone] Potassium molar conc 3.8 mmol/L Normal 3.5-5.0 [facility] Comment on above: Performed By: #### P T, PTT, AMYL, CMP, LIPA, PHOS ####[place] [address]#### TRANSF ####[place] [phone] Protein 6.4 g/dL Normal 6.0-8.4 [facility] Comment on above: Performed By: #### P T, PTT, AMYL, CMP, LIPA, PHOS ####[place] [address]#### TRANSF ####[place] [phone] Sodium 133 mmol/L Low 135-146 [facility] Comment on above: Performed By: #### P T, PTT, AMYL, CMP, LIPA, PHOS ####[place] [address]#### TRANSF ####[place] [address] [address] [place] [phone] Urea nitrogen 9 mg/dL Low 10-25 [facility] Comment on above: Performed By: #### P T, PTT, AMYL, CMP, LIPA, PHOS ####[place] [address]#### TRANSF ####[place] [phone] Alanine aminotransferase (ALT) 418 U/L High 5-50 [facility] Comment on above: Performed By: #### P T, PTT, AMYL, CMP, LIPA, PHOS ####[place] [address]#### TRANSF ####[place] [phone] Albumin 3.1 g/dL Low 3.5-5.0 [facility] Comment on above: Performed By: #### P T, PTT, AMYL, CMP, LIPA, PHOS ####[place] [address]#### TRANSF ####[place] [phone] Alkaline phosphatase (ALP) 832 U/L High 40-150 [facility] Comment on above: Performed By: #### P T, PTT, AMYL, CMP, LIPA, PHOS ####[place] [address]#### TRANSF ####[place] [phone] Anion gap 13 mmol/L Normal 9-18 [facility] Comment on above: Performed By: #### P T, PTT, AMYL, CMP, LIPA, PHOS ####[place] [address]#### TRANSF ####[place] [phone] Aspartate aminotransferase (AST) 395 U/L High 7-40 [facility] Comment on above: Performed By: #### P T, PTT, AMYL, CMP, LIPA, PHOS ####[place] [address]#### TRANSF ####[place] [phone] Bilirubin (total) 2.7 mg/dL High 0.0-1.5 [facility] Comment on above: Performed By: #### P T, PTT, AMYL, CMP, LIPA, PHOS ####[place] [address]#### TRANSF ####[address] [place] [phone] Calcium 8.9 mg/dL Normal 8.5-10.5 [facility] Comment on above: Performed By: #### P T, PTT, AMYL, CMP, LIPA, PHOS ####[place] [address]#### TRANSF ####[place] [phone] Chloride 96 mmol/L Low 98-110 [facility] Comment on above: Performed By: #### P T, PTT, AMYL, CMP, LIPA, PHOS ####[place] [address]#### TRANSF ####[address] [place] [phone] CO2 23 mmol/L Normal 23-32 [facility] Comment on above: Performed By: #### P T, PTT, AMYL, CMP, LIPA, PHOS ####[place] [address]#### TRANSF ####[address] [place] [phone] Creatinine 0.63 mg/dL Low 0.70-1.40 [facility] Comment on above: Performed By: #### P T, PTT, AMYL, CMP, LIPA, PHOS ####[address]#### TRANSF ####[place] [phone] eGFR (non-black) mL/min/{1.73_m2} Normal >60 [facility] Comment on above: Performed By: #### P T, PTT, AMYL, CMP, LIPA, PHOS ####[address]#### TRANSF ####[place] [phone] Glucose mass conc 149 mg/dL High 65-100 [facility] Comment on above: Performed By: #### P T, PTT, AMYL, CMP, LIPA, PHOS ####[place] [address]#### TRANSF ####[place] [phone] Potassium molar conc 4.2 mmol/L Normal 3.5-5.0 [facility] Comment on above: Performed By: #### P T, PTT, AMYL, CMP, LIPA, PHOS ####[address]#### TRANSF ####[place] [phone] Protein 7.0 g/dL Normal 6.0-8.4 [facility] Comment on above: Performed By: #### P T, PTT, AMYL, CMP, LIPA, PHOS ####[place] [address]#### TRANSF ####[place] [phone] Sodium 132 mmol/L Low 135-146 [facility] Comment on above: Performed By: #### P T, PTT, AMYL, CMP, LIPA, PHOS ####[place] [address] [place], [place] [phone]#### TRANSF ####[facility] [place], [place] [phone] Urea nitrogen 9 mg/dL Low 10-25 [facility] Comment on above: Performed By: #### P T, PTT, AMYL, CMP, LIPA, PHOS ####[place] [address] [place], [place] [phone]#### TRANSF ####[place] [address] [place], [place] [phone] HISTORY PHYSICALon 8 HISTORY PHYSICAL HNO ID: [id number] thor: Michael Cedillo) AugustinService: General SurgeryAuthor Type: PhysicianType: HANDPFiled: 08/14/2017 11:20 PMNote Text:SURGICAL SERVICES INITIAL HANDPSERVICE DATE: 08/13/2017SERVICE TIME: 11:52 PMPRIMARY CARE PHYSICIAN: No primary care provider on file.SubjectiveHISTORY OF PRESENT ILLNESS: Mr. Jackson is a 62 year old male with PMH ofCAD s/p stent x2, type 2 DM on metformin, HTN, glaucoma, PSH ofcholecystectomy ) who was transferred from [facility].Patient reports symptoms of abdominal pain and [...] from the mass and he wastransferred to [facility] for further management.Of note he has an episode of bleeding duodenal ulcer for which he receivedmultiple blood transfusion.PAST MEDICAL HISTORYDiagnosis Date- Bleeding ulcer 11/15/2016 required 5 blood transfusions- Diabetes mellitus (HCC) 2017- Glaucoma- Hypertension- Myocardial infarction 05/15/2011PAST SURGICAL HISTORYProcedure Laterality Date- ANGIOPLASTY HX 05/15/2011 2 stents s/p [place];[facility]- [facility]2017 [facility].Social HistorySubstance Use Topics- [...] by mouth once daily. Disp: [facility]/2017 [facility]START ON 08/14/2017] pneumococcal vaccine 23 [...] Non labored breathing on RACARDIOVASCULAR: History of AZ with stents on 162 aspirinGI: Vomiting and [...] 13, 2017 : 11:52 PM PAGER/CONTACT #: [phone] NOTEI have independently seen and examined the patient today. I haveindependently reviewed all the imaging and the labs. I agree with keycomponents of the resident's note above. Care plan and decision making hasbeen discussed.Patient with obstructing duodenal mass [facility] painUnderwent lap richelle recentlySymptoms have been worse since surgeryAbd is soft and non peritonitic. RUQ tenderness noted. Drain with bileI have reviewed the CT.2 large collections and Duodenal mass. No liver or pulmonary metastasesTumor markersIR drain for abdominal fluid collection; these are likely bilomas givenCBD obstruction at the time of cholecystectomyEGD/ERCP for biliary stentNeeds TPNToms MD Froilan, MPH, FACSGeneral/Trauma/HPB SurgeryPager: [phone] Cell: [phone] 2017 Normal [facility] Lipaseon 08-14-2017 Lipase 43 U/L Normal 12-70 [facility] Comment on above: Performed By: #### P T, PTT, AMYL, CMP, LIPA, PHOS ####[facility] [place], [place] [phone]#### TRANSF ####[place] [address] [place], [place] [phone] Lipase 58 U/L Normal [facility] Comment on above: Performed By: #### P T, PTT, AMYL, CMP, LIPA, PHOS ####[place] [address]#### TRANSF ####[address] [phone] NURSING PROGon 08-14-2017 NURSING PROG HNO ID: [id number] thor: Kiley Wong RNService: (none)Author Type: Registered NurseType: Nursing Progress NoteFiled: 08/14/2017 6:27 PMNote Text: Nursing Progress NotePatient Name: Rocio JacksonMRN: [id number] Location: [place] [address]/[id number] ____Daily Note:1800-Patient reporting a significant increase in [...] adark tea colored fluid. Call placed to operating room surgical technician to notify, hewill be up to see the patient. Repositioned for comfort, no new orders atthis time.1809-Resident is in to see patient, orders to continue to monitor. Callplaced to CT to determine when patient will be taken down. Per claims technician thepatient is on the transport list and CT will be completed soon.is note was completed by: Kiley Wong RN Normal [facility] NURSING PROG HNO ID: [id number] thor: Jacqueline (Rn) Jeremy, RNService: (none)Author Type: Registered NurseType: Nursing Progress NoteFiled: 08/13/2017 10:36 PMNote Text: Nursing Progress NotePatient Name: Rocio Boudreaux: [id number] Location: [place] [address]/[id number] ____Transfer Note:Patient transferred into room/unit PK336 at 2145. Actions taken:Dressingaround pt ROMINA drain changed AND ROMINA emptied. Will follow up with orders andcontinue to monitor.This note was completed by: Jacqueline Luna RN [facility] NUTRITIONon 08-14-2017 NUTRITION HNO ID: [id number] thor: Alise Segura) BarsaService: Nutrition TherapyAuthor Type: [...] 87 kgResting Metabolic Rate: 1661Estimated kilocalorie needs: 5106-3512 kilocalories determined by 25-28kcal/kgEstimated protein needs:113 - [...] lb 9.6 oz) SpO2 93% BMI 29.28 kg/f2Llskll Labs 08/14/1803GLUC 147* -- 149*BUN 9* -- [...] assistance and weekends please page theGroup Pager [phone] Normal [facility] Phosphoruson 08-14-2017 Phosphate 2.4 mg/dL Low 2.5-4.5 [facility] Comment on above: Performed By: #### P T, PTT, AMYL, CMP, LIPA, PHOS ####[address] [phone]#### TRANSF ####[facility] [place], [place] [phone] Phosphate 2.3 mg/dL Low 2.5-4.5 [facility] Comment on above: Performed By: #### P T, PTT, AMYL, CMP, LIPA, PHOS ####[address] [phone]#### TRANSF ####[place] [phone] Phosphate 2.3 mg/dL Low 2.5-4.5 [facility] Comment on above: Performed By: #### P T, PTT, AMYL, CMP, LIPA, PHOS ####[place] [address]#### TRANSF ####[place] [phone] Prealbuminon 08-14-2017 Prealbumin 7 mg/dL Low 17-36 [facility] Comment on above: Performed By: #### P T, PTT, AMYL, CMP, LIPA, PHOS ####[place] [address]#### TRANSF ####[place] [phone] Protimeon 08-14-2017 INR Coag RelTime (Bld) 1.5 {INR} High 0.9-1.3 [facility] Comment on above: Result Comment: Tayler min K Antagonist (VKA) Therapeutic Range: INR 2 to 3 (Target INR of 2.5)Note: For patients treated with VKA drugs, such as warfarin, the [employer] 2012 Guideline recommends [...] P T, PTT, AMYL, CMP, LIPA, PHOS ####[phone]#### TRANSF ####[place] [phone] PT Sec 14.9 sec High 9.7-13.0 [facility] Comment on above: Performed By: #### P T, PTT, AMYL, CMP, LIPA, PHOS ####[place] [address]#### TRANSF ####[place] [phone] INR Coag RelTime (Bld) 1.5 {INR} High 0.9-1.3 [facility] Comment on above: Result Comment: Tayler min K Antagonist (VKA) Therapeutic Range: INR 2 to 3 (Target INR of 2.5)Note: For patients treated with VKA drugs, such as warfarin, the [employer] 2012 Guideline recommends [...] P T, PTT, AMYL, CMP, LIPA, PHOS ####[place] [phone] [phone]#### TRANSF ####[place] [phone] PT Sec 14.7 sec High 9.7-13.0 [facility] Comment on above: Performed By: #### P T, PTT, AMYL, CMP, LIPA, PHOS ####[place] [address]#### TRANSF ####[place] [phone] Transferrinon 08-14-2017 Transferrin 218 mg/dL Normal 200-360 [facility] Comment on above: Performed By: #### P T, PTT, AMYL, CMP, LIPA, PHOS ####[place] [address]#### TRANSF ####[place] [phone] Type and Screenon 08-14-2017 ABO/RH(D) Positive Normal [facility] Comment on above: Performed By: #### P T, PTT, AMYL, CMP, LIPA, PHOS ####[place] [address]#### TRANSF ####[place] [phone] Antibody Screen Negative Normal [facility] Comment on above: Performed By: #### P T, PTT, AMYL, CMP, LIPA, PHOS ####[place] [address]#### TRANSF ####[place] [phone] XR ABDOMEN 1V SUPINEon 08-14 XR ABDOMEN [...] excluded from view.IMPRESSION:NG TUBE EXTENDS TO THE STOMACH.Sleep Manager: NII Transcribe Date/Time: Aug 14 2017 7:37ADictated by : Elisa MOSCOSO examination was interpreted and the report reviewed and electronically signed by: SUSAN CORNEJO MD on Aug 14 2017 7:38AM [id number] [facility] XR CHEST 1V FRONTAL PORTon 0 08-14-2017 [...] Partially obscured.Other:IMPRESSION:Lo w lung volumes with bibasilar atelectasis.Sleep Manager : NII Transcribe Date/Time: Aug 14 2017 7:38ADictated by : SUSAN CORNEJO MDThimilly examination was interpreted and the report reviewed and electronically signed by: SUSAN CORNEJO MD on Aug 14 2017 7:40AM [id number] [facility] HOSPon 08-13-2017 HOSP Patient:Jason Jackson RN: Height:5' [...] LR infusion (D5-LR)heparin 5,000 Units injectionphenol 1 [place] (CHLORASEPTIC)metoprolol tartrate (short acting) 25 mg tab(s) [...] 3.5HEMA* 27.7 % 08/19/2017 51.0 39.0Progress Notes ([address]):Jacqueline Luna, RN, RN 08/13/2017 10:36 PM Signed Nursing Progress NotePatient Name: Rocio BrianDary: [id number] Location: [address]36/ZX-[id number]-35 ____Transfer Note:Patient transferred into room/unit PK336 at [...] DM on metformin, HTN, glaucoma, PSH of wxqbshkvleoqgje65/13/2018) who was transferred from [facility].Patient reports symptoms [...] from the mass and he was transferred [facility] for further management.Of note he has an episode of bleeding duodenal ulcer for which he receivedmultiple blood transfusion.PAST MEDICAL HISTORYDiagnosis Date- Bleeding ulcer 11/15/2016 required 5 blood transfusions- Diabetes mellitus (HCC) 2016- Glaucoma- Hypertension- Myocardial infarction 05/15/2011PAST SURGICAL HISTORYProcedure Laterality Date- ANGIOPLASTY HX 05/15/2011 2 stents s/p [place];[facility]- [facility]Y [facility]2017 [facility]No [facility].Social HistorySubstance Use Topics- [...] by mouth once daily. Disp: [facility]2017[facility] ON 08/14/2017] pneumococcal vaccine 23 [...] Non labored breathing on RACARDIOVASCULAR: History of AZ with stents on 162 aspirinGI: Vomiting and [...] 13, 2017 : 11:52 PM PAGER/CONTACT #: [phone] NOTEI have independently seen and examined the patient today. I have independentlyreviewed all the imaging and the labs. I agree with figueroa components of theresident's note above. Care plan and decision making has been discussed.Patient with obstructing duodenal mass [facility] months of abdominal painUnderwent lap richelle recentlySymptoms have been worse since surgeryAbd is soft and non peritonitic. RUQ tenderness noted. Drain with bileI have reviewed the CT.2 large collections and Duodenal mass. No liver or pulmonary metastasesTumor markersIR drain for abdominal fluid collection; these are likely bilomas given CBDobstruction at the time of cholecystectomyEGD/ERCP for biliary stentNeeds TPNToms MD Froilan, MPH, FACSGeneral/Trauma/HPB SurgeryPager: [phone] Cell: [phone] 2017Previous VersionDenise Graham RT 08/14/2017 1:32 AM Signed Radiology Service Progress NotePATIENT NAME: Rocio JacksonMRN: [id number] OF SERVICE: August 14, 2017TIME: 1:32 AMPATIENT [...] 87 kgResting Metabolic Rate: 1661Estimated kilocalorie needs: 8257-3132 kilocalories determined by 25-28 kcal/kgEstimated protein needs:113 [...] lb 9.6 oz) SpO2 93% BMI 29.28 kg/u4Ihuzsd Labs 08/14/1803GLUC 147* -- 149*BUN 9* -- [...] assistance and weekends please page the GroupPager [phone] Stewart, RN, RN 08/14/2017 6:27 PM Signed Nursing Progress NotePatient Name: Rocio JacksonMRN: [id number] Location: [place] [address]/[id number] ____Daily Note:1800-Patient reporting a significant increase in [...] a dark tea coloredfluid. Call placed to operating room surgical technician to notify, he will be up to see thepatient. Repositioned for comfort, no new orders at this time.1810-Resident is in to see patient, orders to continue to monitor. Call placedto CT to determine when patient will be taken down. Per claims technician the patient israel the transport list and CT will be completed soon.is note was completed by: Radha Pacheco 08/14/2017 7:17 PM Signed Radiology Service Progress NotePATIENT NAME: Rocio Boudreaux: [id number] OF SERVICE: August 14, 2017TIME: 7:16 PMPATIENT IDENTITY VERIFICATION COMPLETED USING TWO (2) METHODS: Patientconfirmed name verbally and ID band matches..PATIENT GENDER DATA: MalePATIENT RELEVANT IMPLANT DATA REVIEWED: Not ApplicableCONTRAST INDUCED NEPHROPATHY RISK FACTORS: Patient age > 60 yearsCREATININE:CreatinineDa te Value Ref Range Sxjssa6608/14/2017 0.61 (L) 0.70 - 1.40 mg/dL Final08/14/2017 0.63 (L) 0.70 - 1.40 mg/dL Final eGFR-All Other RacesDate Value Ref Range Uhkffn0108/14/2017 >60 >60 . Final eGFR- AmericanDate Value Ref Range Oxnfga3008/14/2017 >60 >60 Final P.O.C.T. RESULTS: POC done: [...] plan of care and management with the PA/AVIATION BOATSWAIN'S MATE. I reviewed thePA/AVIATION BOATSWAIN'S MATE's note and agree with the documented findings and plan of care.? ?Thank you for allowing us to participate in the care of this patient. Pleasecall with any questions or concerns.Anika TamayoWoodwinds Health Campus GastroenterologyPanorthwest medical center [phone] --------CONSULT: [facility] SERVICESERVICE DATE: 08/15/2017SERVICE TIME: 9:04 AMREASON FOR CONSULT: ERCPREQUESTING PHYSICIAN: Dr. [facility]leyBE[facility] PH[facility]IAN: No primary care provider on file.SubjectiveMr. Jackson is a 62 year old male with PMH of CAD s/p stent x2, type 2 DM onmetformin, HTN, glaucoma, PSH of cholecystectomy (08/11/2017, ERCP 08/13/17) whowas transferred from [facility] due to ulcerated mass possibleadenocarcinoma.The patient states that he had intermittent RUQ abdominal pain for sometime and became acutely worse. He subsequently underwent cholecystectomy [facility]. He had persistent pain and elevated LFT's following the richelle andunderwent ERCP on 08/13/17 which showed a duodenal mass and was biopsied. [facility] and [facility]. Following [...] 2.3, AST 285, ALT 370, and new wrmlxoupabpp25.53-->16.33.No t currently on antibiotics.FUNCTIONAL STATUS: IndependentPAST MEDICAL HISTORYDiagnosis Date- Bleeding ulcer 11/15/2016 required 5 blood transfusions- Diabetes mellitus (HCC) 2016- Glaucoma- Hypertension- Myocardial infarction 05/15/2011PAST SURGICAL HISTORYProcedure Laterality Date- ANGIOPLASTY HX 05/15/2011 2 stents s/p [place];[facility]- [facility]Y 08[facility]11/2017 [facility]No [facility].Social HistorySubstance Use Topics- [...] by mouth once daily. Disp: Rfl: 08/10/2017[facility]00[facility] medications:oxyCODONE IR 5 mg tab(s) (ROXICODONE) [...] control as per primary service-Maintain NPO-IV Cipro electrical continuity inspector for ERCP (ordered)D/w Dr. Nava and Dr. AquinoattSIGNATURE: Gissell Serrato CNP PATIENT NAME: Rocio JacksonDATE: August 15, 2017 : 9:04 AM PAGER: [phone] M Beskid, RN, RN 08/15/2017 6:48 PM Addendum Nursing Progress NotePatient Name: Rocio JacksonMRN: [id number] Location: [place] [address]/[id number] ____Daily Note:Pt phos level 2.2 - text [...] was completed by: Saima Richardson, RNPrevious Baylee Braber, CARLOS, LD 08/15/2017 1:17 PM AddendumNUTRITION SUPPORT TEAMTOPIC: NUTRITION SUPPORT PROGRESS NOTEPATIENT NAME: Rocio JacksonMRN: [id number] OF : 1955DATE: 08/15/2017Nutritional Status: SEVERE PROTEIN [...] 87 kgResting Metabolic Rate: 1661Estimated kilocalorie needs: 3077-7166 kilocalories determined by 25-28 kcal/kgEstimated protein needs:113 [...] (192 lb 9.6 oz) SpO2 92% BMI29.28 kg/w4Mjaeurg Weight: Weight: 87.4 kg (192 lb 9.6 [...] -- --CA 8.7 -- 8.5 8.9Recent Labs 260348GWXSUL 7*Accuchecks:Glucose, Point of Care (mg/dL)Date Value08/15/2017 141 (A)08/15/2017 154 (A)08/15/2017 138 (A)08/14/2017 148 (A)Alana Barber RD, LDPager: For further assistance and weekends please page the Group Bgyrc-[phone] :3Previous Constance Patel MD 08/15/2017 2:07 PM [...] Date- ANGIOPLASTY HX 05/15/2011 2 stents s/p [place];[facility]- [facility]LECY[facility]ECTOMY 08/11/2017 [facility]Prior [facility] medications as of 08/13/17 2301Medication [...] 20 mg by mouth twice daily. 08/11/2017 [id number] Yesnitroglycerin sublingual (NITROSTAT) 0.4 mg SL tablet [...] August 15, 2017 : 2:05 PM PAGER: [phone] Rivero, RN, RN 08/15/2017 3:13 PM SignedAMBULATORY [...] instructionPATIENT / FAMILY RESPONSE: Verbalizes understanding of: VXAV-SBHZQMYNKTFEAGEGIEEFX-T orrect actions to take to reduce post procedure complicationsPRE-PROCEDURE INSTRUCTIONS-Correct action to take to follow pre-procedureinstructionsFOL LOW-UP PLAN: Complete - No need for follow-upSUPPLEMENTAL MATERIAL: Title of written material: Abcess drain and SedationinformationREFERRAL (RECOMMENDATION): NoneElectronically Signed By: Dhara Rivero RN In Department: [place] [id number] Patel MD 08/15/2017 2:46 PM SignedRadiology Brief [...] 15, 2017 : 2:45 PM PAGER/CONTACT #: [phone] 08/15/2017 2:49 PM Signed Radiology Service Progress NotePATIENT NAME: Rocio JacksonMRN: [id number] OF SERVICE: August 15, 2017TIME: 2:48 PMPATIENT IDENTITY VERIFICATION COMPLETED USING TWO (2) METHODS: Patientconfirmed name verbally and ID band matches..PATIENT GENDER DATA: MalePATIENT RELEVANT IMPLANT DATA REVIEWED: Not ApplicableRADIOLOGY DEPARTMENT: CT; Exam(s) Completed: ABSCESS DRAINAGEPERIPHERAL IV DATA: Not applicableSIGNED BY: Jennifer Win [facility] Hospitalebruypsilanti 2017 2:48 PMAraul Duffy MD 08/15/2017 5:53 [...] entry)Kael Hernandez MD, MD 08/15/2017 7:29 PM SignedGLENS [facility]ALLS [facility] SUR[facility]ERY PROGRESS NOTENAME: Rocio JacksonMRN: [id number] 2017 7:20 PMASSESSMENT AND PLAN:Mr. Jackson is [...] tachycardic during the day. EKG revealed A-fib. Fsvtsjgo5c560 NSB, responded to bolus.IR drained 110cc dark serous fluid on 08/15- Continue pain control regimen- FEN/GI: NPO diet; mIVF- Abx: Cipro- Prophylaxis: DVT prophylaxis, IS, OOB, ambulate- Telemetry- PICC line placement- Nutrition consult for TPN- Dispo: ARLINE HERNANDEZ MDElmore Community Hospital SurgeryPager: [phone]*On weekends or nights (after 1800) please contact the surgery electrical continuity inspector pager.*SUBJECTIVE: No acute issues overnight and during the day. Resting comfortablyin bed.OBJECTIVE:BP 109/58 Pulse 78 Temp 36.3 ?C (97.4 ?F) (Oral) Resp 18 Ht 172.7 cm (5'8 ) Wt 87.4 kg (192 lb 9.6 oz) SpO2 94% BMI 29.28 kg/n7WWRFQFA: alert, NADLUNGS: breathing comfortablyCARDIAC: irregularABDOMEN: mildly TTP in upper abd, mildly distended, softEXTREMITIES: warm and well perfusedDRAINS/LINES: bilious drainage from JPDate 08/14/17 1500 - 08/15/17 0659 08/15/17 0700 - 08/16/17 0659Shift 6675-3356 9910-9304 24 Hour Total 9339-8460 0277-6855 3411-3525 24 HourTotalINTAKE PO 60 60 30 30 PO 60 60 30 30 IV 2018 2018 268 856 8277 NS 0.9% 2018 2018 108 162 0856 Irrigants 20 40 30 30 Irrigant/Flush Amount In (GI Feed/Drain 08/14/17 0109 Nasogastric Right Naris18 Fr) 20 40 30 30 Shift Total 9 9 744 665 1409OUTPUT Urine 575 1125 425 425 Void (ml) 575 1125 425 425 Tubes 245 530 3764 330 445 775 Drain/Tube Output (Drain/Tube Admission to [facility] Right LowerQuadrant Abdomen) 260 30 370 140 70 210 Drain/Tube Output (Drain/Tube 08/15/17 1530 Assessment Right Upper Abdomen)275 275 Output (GI Feed/Drain 08/14/17 0109 Nasogastric Right Naris 18 Fr) 220 [id number] 190 100 290 # of BMs Number [...] Addendum Nursing Progress NotePatient Name: Rocio Boudreaux: [id number] Location: [place] [address]/[id number] ____Daily Note:Late entry 08/15 Labs drawn for start of heparin drip. INR 2.0Order to notify team when INR equal to or greater than 2.0.0350: Team notified that INR 2.0. Order to hold heparin drip until morning labsback with INR results. Will continue to monitor.0428: Text page to surgery for bladder scan of 665 ml and change in NG colorfrom bile to brownish [id number]: SROC up to see and assess pt. Continue to monitor bladder as pt is havingno symptoms of discomfort at this time. Wait to start heparin drip until Amlabs. Continue to monitor NG output.This note was completed by: Kaye May, RN, RN 08/16/2017 6:50 PM Signed Nursing Progress NotePatient Name: Rocio Boudreaux: [id number] Location: [place] [address]/[id number] ____Daily Note:07: SROC alpha paged re: PT/INR result 2.0 from morning lab work, heparin gttorder remains active, requesting clarification. A-fib on environmental monitoring specialist, [id number]'s.0830: Call back recv'd, okay to start heparin [...] c/o upper ABD pain.Lap sites x 3 WASH TEST CHECKER with skin glue, no drainage.1245: Dr Duffy rounding (covering for Dr Jolley) and discussed RN concernsfor INR 2.0 with heparin gtt, and vitamin K order. Per Dr Duffy, stop heparingtt and admin vitamin K. Spoke with [employer] [employer] [facility] for GI service, repeat PT/INR orderedfor 1200 [...] 16, 2017 : 8:03 AM PAGER/CONTACT #: [phone] Song, RN, RN 08/16/2017 8:34 AM SignedPATIENT EDUCATION TOPIC: PROCEDURE / SURGERY: Procedure/Surgery: PICCinsertion under US guidancePATIENT NAME: Rocio JacksonMRN: [id number] LOCATION: [place] [address]READINES S TO LEARNCOGNITIVE ABILITY: Alert and orientedMOTIVATION TO LEARN: EagerInterestedFAMILY SUPPORT: High - Very involved in pt careINSTRUCTION PROVIDED TO: Patient and Family memberPATIENT LEARNS BEST BY: Individual InstructionVerbal InstructionFACTORS AFFECTING LEARNING: NonePHYSICAL LIMITATIONS AFFECTING LEARNING: NoneLEARNING RESPONSEDIAGNOSIS: ADULT: Duodenal obstructionPATIENT/FAMILY RESPONSE: Verbalizes understanding of: [id number]-J orrect actions to take to reduce post [...] Discussion: Shayan Shaffer RNCATHETER PLACEMENTBrand: Charan Lot: [id number] of Lumens: 2Type of PICC: Power Injectable [...] YesSPECIMENS: NoneCOMPLICATIONS: NonePatient Education Materials: [facility] Central Line Insertion checklist, attached to the CentralLine-Associated Bloodstream Infection Prevention Policy, was utilized duringthis procedure.QUESTIONS or PROBLEMS: Page [phone] weekendSIGNATURE: Luis Shaffer RN PATIENT NAME: Rocio VizcarraTE: August 16, 2017 : 8:35 AM PAGER/CONTACT PHONE:Khadar Duffy MD 08/16/2017 1:47 PM Addendum SURGERY INPATIENT PROGRESS NOTESName: Rocio JacksonMRN: [id number] and Plan:62 year old male with near-obstructing [...] lb 9.6 oz) SpO2 92% BMI 29.28 kg/i3Tahbug/Output Summary (Last 24 hours) at 08/16/17 0835Last [...] Please callwith any questions or concerns.Gissell Serrato [facility]ITALNorthshore GastroenterologyOffice: Cell: Arqinz Kenny Ferrari MD 08/16/2017 6:45 PM AddendMille Lacs [facility] Progress NoteSERVICE DATE: August 16, 2017SUBJECTIVENo abd pain, n/v, f/c. Afib overnight. Passing gas. No BM.OBJECTIVEMEDICATIONSCurre westerly hospital medications:potassium phosphate 30 mmol in NaCl [...] mg INTRAVENOUS q 2 H PRNPE 08/16/1806 [id number]: 108/64 117/60 113/66Pulse: 92 (!) 128 92 96Resp: 18 17 16Temp: 36.9 ?C (98.4 ?F) 36.7 ?C (98 ?F) 37.4 ?C (99.3 ?F)TempSrc: Oral Oral OralSpO2: 92% 92% 95%Weight:Height:Body mass index is 29.28 kg/(m2).GENERAL: NAD, HIYq3MCYGP: PERRLA, EOMI, normal OPCV: RRR, normal S1, [...] with any further questions or concerns.Lourdes Ferrari MDVernal GastroenterologyPg#: [phone]: Lourdes Ferrari MD PATIENT NAME: Rocio JacksonDATE: August 16, 2017 : 2:42 PM PAGER: [phone] VersionRaviscristian Mayorga MD 08/16/2017 4:39 PM AddendumCONSULT: CARDIOLOGY SERVICESERVICE DATE: August 16, 2017SERVICE TIME: 3:56 PMCONSULTING PHYSICIAN: Dr. Jessee MayorgaPCP: No primary care provider on file.ATTENDING: Michael Cedillo) Moiz FOR CONSULT: ArrhythmiasASSESSMENT AND PLAN:Principal Problem:Atrial fibrillation.Persistent AF, ventricular rates +/- 110.Patient denies awareness.Hx of PAF, first episode 10/2016 in the setting of GI bleed. Treated withamiodarone which was stopped one month ago.On heparin infusion. Inr is elevated 2.0On home dose coreg 12.5 BIDPlan:Switch to metoprolol 25 TID.Monitor.CAD. Remote [place], PCI in 2013.No angina.Duodenal mass and obstructive jaundices/p perc drain placement.-plan is for ERCP with possible duodenal stent placement tomorrow.[facility] STAFF PHYSICIAN NOTE OF PERSONAL INVOLVEMENT IN [...] 62 year old male, he lives in [facility]. Follow[place]Cardiologist in [place].History of CAD, [place] s/p stent x2 in 2013, DM II, hypertension, glaucoma, recentcholecystectomy 08/11/2017, ERCP 08/13/17-showed multiple fluid collections andpartial duodenal obstruction due to ulcerated mass, possible adenocarcinoma.Subsequently transferred from [facility].-Worsening abdomina pain, leukocytosis. Followed by general surgery.s/p [...] Date- ANGIOPLASTY HX 05/15/2011 2 stents s/p [place];[facility]- CHOLECYSTECTOMY 08/11/2017 [facility]- PICC LINE INSERT/CONSULT 08/16/2017Past Family History:non contributorySocial [...] NOTES - SURGICAL SERVICESPATIENT NAME: Rocio JacksonMRMarisa: [id number] HISTORY OF PRESENT ILLNESS:No acute events overnight. [...] 87 kgResting Metabolic Rate: 1661Estimated kilocalorie needs: 9667-3187 kilocalories determined by 25-28 kcal/kgEstimated protein needs:113 - 130 grams determined by 1.3-1.5 g/kg DosingweightEstimated fluid needs: 2200 - 2400 milliliters based on 1 mL per kcalAdmission Weight: 87.4 kg (192 lb 9.6 oz)Current Weight: 87.4 kg (192 lb 9.6 oz)Body mass index is 29.28 kg/(m2). overweightALLERGIESNo Known AllergiesCurrent Facility-Administered Medications:phenol 1 [place] (CHLORASEPTIC) 1 [place] MUCOUS MEMBRANE (TOPICAL MOUTH AND THROAT) q2 [...] assistance and weekends please page the GroupPager -[phone] R Bolla, MD 08/18/2017 10:29 PM SignedPROGRESS NOTE CARDIOLOGY SERVICESERVICE DATE: August 17, 2017SERVICE TIME: 12:48 PMASSESSMENT/PLANActive Problems:Atrial fibrillation. Persistent AF, ventricular rates +/- 100Heparin infusion is off. Inr was elevated, received vitamin K prior toprocedure. Today 1.0.s/p ERCP yesterdayPlan:Continue metoprolol.Spoke to surgical [employer] MATE Boubacar Espinoza. ->kimberley is for PTHC tomorrow.Will [...] edema.PULSES: Peripheral pulses present.MEDICATIONS:Current Facility-Administered Medications:phenol 1 [place] (CHLORASEPTIC) 1 [place] MUCOUS MEMBRANE (TOPICAL MOUTH AND THROAT) q2 [...] Prior to Discharge: To Be DeterminedHealth Insurance: [facility]erving Arrangement: HomeLives With: 2 adult childrenFinancial Resources: N/APrimary Contact:Extended Emergency Contact InformationPrimary Emergency Contact: Owen Muller: [place], [place] [address]Tvly Wevarvfr: SiblingSupportive: YesOther Important Patient Contacts: NoneCAREGIVER ASSESSMENT:Caregiver [...] days? NoHas the Patient Been in a Retirement Facility in the Past 30 days? NoFREEDOM [...] 17, 2017 : 2:07 PM PAGER/CONTACT #: [phone] Zelin, MD 08/17/2017 3:21 PM SignedREGIONAL ANESTHESIOLOGY DAY OF SURGERY NOTEPATIENT NAME: Rocio JacksonMRN: [id number]: 1955Procedure(s) (LRB):ERCP (N/A)Surgeon(s):Srinath NavaEstimated body mass index [...] Date- ANGIOPLASTY HX 05/15/2011 2 stents s/p [place];[facility]- CHOLECYSTECTOMY 08/11/2017 [facility]- PICC LINE INSERT/CONSULT 08/16/2017No family history on file.Social History:Social HistorySubstance Use Topics- Smoking status: Former Smoker Types: Cigarettes Quit date: 2010- Smokeless tobacco: Never Used- Alcohol use 1.5 oz/week 1 Cans of Beer (12oz) per week Comment: occasional beerNo current facility-administered medications on file prior to encounter.No current outpatient prescriptions on file prior to encounter.[facility]patient [facility] reviewed in [facility].I have interviewed and examined the patient. I have reviewed the medical recordand/or the pre-anesthesia evaluation, pertinent labs, and test results.Significant changes in the patient's condition since the History and Physical,not otherwise documented in primary service progress notes: [facility] contains updated information obtained within 48 [...] JacksonDATE: August 17, 2017 : 3:20 PM PAGER:Srinath Nava MD 08/17/2017 5:07 PM SignedPlease see [...] NOTES - SURGICAL SERVICESPATIENT NAME: Rocio JacksonMRN: [id number] HISTORY OF PRESENT ILLNESS:No acute events overnight. [...] surgical care: EVERETT RODRIGUEZ MD (Res)General SurgeryPager: [phone]*On weekends or nights (after 1800) please contact the surgery electrical continuity inspector pager.*Attending: ERCP results noted. Unable to cannulate [...] Duffy MDFebruary 2017 6:11 PMPrevious VersionLinda Avalos, [facility]PPORT [employer] 08/18/2017 1:23 PM SignedCONSULT PROGRESS NOTESERVICE DATE: 08/18/2017SERVICE TIME: 1:20 PMCONSULTING SERVICE: GISubjectiveINTERVAL HPI: No acute events overnight. 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 Pleasecall with questions or concerns.SIGNATURE: Linda Avalos CNP PATIENT NAME: Rocio JacksonDATE: August 18, 2017 : 1:20 PM PAGER: [phone] Barsa, RD, LD 08/18/2017 1:39 PM SignedNUTRITION THERAPY PROGRESS NOTESERVICE DATE: 08/18/2017SERVICE TIME: 1:24 PMRECOMMENDED DIAGNOSIS: SEVERE PROTEIN-CALORIE MALNUTRITION per RegisteredDietitian on 08/14NUTRITION CARE PLANIntervention:Diet NPOAdvance to clearsMonitor and Evaluation:Goal: Meet >75% of estimated needsMonitor fluid/electrolyte balanceMonitor labs, I/Os, vital signs, weightDischarge Nutrition Recommendations:To be eqjskvjxhh88 year old male with a history notable [...] (HumaLOG) SUBCUTANEOUS w MEALS AND HSphenol 1 [place] (CHLORASEPTIC) 1 [place] MUCOUS MEMBRANE (TOPICAL MOUTH AND THROAT) q2 [...] assistance and weekends please page the GroupPager -[phone] Berardi, RN, RN 08/18/2017 2:30 PM SignedMULTIDISCIPLINARY ROUNDSSERVICE DATE: 08/18/2017 ADMISSION DATE: 08/13/2017SERVICE TIME: 2:27 PM ANTICIPATED D/C DATE: 1-3 daysProblem List:ACTIVE PROBLEM LISTDuodenal ObstructionSevere Protein-Calorie Malnutrition (Hcc)Attendees Present at Rounds:Stage Set Designer: Roderick Nurse: Laura Discussed on Rounds:Discharge NeedsPlan [...] August 18, 2017 : 2:27 PM CSN: [id number] Webster RN, RN 08/19/2017 3:24 AM Signed Nursing Progress NotePatient Name: Rocio JacksonPETRONA: [id number] Location: [place] [address]/[id number] ____ Pt with mild abd pain of 3 or less tonight. Tylenol controlling. Pt aware ifneeded may have pain pills. Accordian drain flushed at 2100 per order forpositive return of sterile NS and brown liquid.This note was completed by: Vipul Das RN, RN 08/19/2017 11:47 AM SignedPATIENT EDUCATION TOPIC: PROCEDURE / SURGERY: Procedure/Surgery: PTHCPATIENT NAME: Rocio Boudreaux: [id number] LOCATION: [place] [address]/[id number] S TO LEARNCOGNITIVE ABILITY: Alert and orientedMOTIVATION TO LEARN: EagerInterestedFAMILY SUPPORT: Unable to assess - Family not presentINSTRUCTION PROVIDED TO: PatientPATIENT LEARNS BEST BY: Individual InstructionWritten Instruction - Hand-outsVerbal InstructionFACTORS AFFECTING LEARNING: NonePHYSICAL LIMITATIONS AFFECTING LEARNING: NoneLEARNING RESPONSEDIAGNOSIS: ADULT: Duodenal massPATIENT/FAMILY RESPONSE: Verbalizes understanding of: [id number]-Q orrect actions to take to reduce post [...] no rubs, murmurs, or gallopsProvisional Diagnosis/Treatment Plan: [facility] wGeneral AnesthesiaThis HANDP can be found in the attached.SIGNATURE: Vanessa Garcia MD PATIENT NAME: Rocio TorresschDATE: August 19, 2017 : 12:47 PM PAGER: [phone] CARLOS Lopez, LD 08/19/2017 2:22 PM SignedNUTRITION [...] 87 kgResting Metabolic Rate: 1661Estimated kilocalorie needs: 0732-1082 kilocalories determined by 25-28 kcal/kgEstimated protein needs:113 [...] kg (192 lb) SpO2 98% BMI 29.19 kg/y3Lvnpkk Labs GLUC 144*BUN 7*CREAT 0.58*NA 142K 3.4*CHLOR [...] 5,000 Units SUBCUTANEOUS q 8 Hphenol 1 [place] (CHLORASEPTIC) 1 [place] MUCOUS MEMBRANE (TOPICAL MOUTH AND THROAT) q2 [...] assistance and weekends please page the GroupPager -[phone] Tritle, MD 08/19/2017 2:57 PM SignedBRIEF OPERATIVE / PROCEDURE NOTESurgery/Procedure Date: 08/19/17Incision/Procedure Start Time:Incision Close/Procedure End Time:Surgeon(s)/Proceduralis t(s) and Travel Registered Nurse Oncology(s):Dusty Garcia - PrimaryProcedure(s): R PTHC and Int/Ext biliary drainAnesthesia: GeneralFindings: Mildly dilated IH ducts. NO filling defects. Severe D2-3 strictureEstimated Blood Loss: MinimalSpecimens: NoneComplications: NonePre-Op/Pre-Procedure Diagnosis: Duodenal massPost-Op/Post-Procedure Diagnosis: SameSIGNATURE: Vanessa Garcia MD PATIENT NAME: Rocio TorresschDATE: August 19, 2017 : 2:56 PM PAGER/CONTACT #: [facility] Vital Signs Date Time Vital Sign Value Performing Clinician Facility 06-04-2023 13:30-0500 Body height 168.91 cm David Caputo Other [facility] Other 06-04-2023 13:30-0500 Body mass index (BMI) [Ratio] 20.67 kg/m2 David Caputo Other [facility] Other 06-04-2023 13:30-0500 Body weight 58.97 kg David Caputo Other [facility] Other 06-04-2023 13:30-0500 Diastolic blood pressure 63 mm[Hg] David Caputo Other [facility] [employer] Other 06-04-2023 13:30-0500 Systolic blood pressure 99 mm[Hg] David Caputo Other [facility] Other 04-09-2023 14:57-0400 Body height 170.8 cm Ma Sand Work Phone: [facility] 04-09-2023 14:57-0400 Body temperature 97.39 [degF] Ma Sand Work Phone: [facility] 04-09-2023 14:57-0400 Body weight 50.8 kg Ma Sand Work Phone: [facility] 04-09-2023 14:57-0400 Diastolic blood pressure 66 mm[Hg] Ma Sand Work Phone: [facility] 04-09-2023 14:57-0400 Heart rate 93 /min Ma Sand Work Phone: [facility] 04-09-2023 14:57-0400 Respiratory rate 16 /min Ma Sand Work Phone: [facility] 04-09-2023 14:57-0400 SaO2% (BldA) [Mass fraction] 97 % Ma Sand Work Phone: [facility] 04-09-2023 14:57-0400 Systolic blood pressure 108 mm[Hg] Lamont Hailey Work Phone: [facility] 03-11-2023 10:36-0400 Body height 170.8 cm Zahra Buitrago MD Work Phone: [facility] 03-11-2023 10:36-0400 Body temperature 97.39 [degF] Zahra Buitrago MD Work Phone: [facility] 03-11-2023 10:36-0400 Diastolic blood pressure 81 mm[Hg] Zahra Buitrago MD Work Phone: [facility] 03-11-2023 10:36-0400 Heart rate 83 /min Zahra Buitrago MD Work Phone: [facility] 03-11-2023 10:36-0400 Respiratory rate 18 /min Zahra Buitrago MD Work Phone: [facility] 03-11-2023 10:36-0400 SaO2% (BldA) [Mass fraction] 100 % Zahra Buitrago MD Work Phone: [facility] 03-11-2023 10:36-0400 Systolic blood pressure 118 mm[Hg] Zahra Buitrago MD Work Phone: [facility] 03-05-2023 14:30-0400 Body height 168.91 cm David Caputo Other [employer] Other 03-05-2023 14:30-0400 Body mass index (BMI) [Ratio] 20.67 kg/m2 David Caputo Other [facility] [employer] Other 03-05-2023 14:30-0400 Body weight 58.97 kg David Caputo Other [facility] Other 03-05-2023 14:30-0400 Diastolic blood pressure 66 mm[Hg] David Caputo Other [facility] Other 03-05-2023 14:30-0400 Systolic blood pressure 107 mm[Hg] David Caputo Other [facility] Other 02-19-2023 15:22-0400 Body temperature 97.5 [degF] Zahra Buitrago MD Work Phone: [facility] 02-19-2023 15:22-0400 Body weight 50.8 kg Zahra Buitrago MD Work Phone: [facility] 02-19-2023 15:22-0400 Diastolic blood pressure 63 mm[Hg] Zahra Buitrago MD Work Phone: [facility] 02-19-2023 15:22-0400 Heart rate 98 /min Zahra Buitrago MD Work Phone: [facility] 02-19-2023 15:22-0400 Respiratory rate 18 /min Zahra Buitrago MD Work Phone: [facility] 02-19-2023 15:22-0400 SaO2% (BldA) [Mass fraction] 97 % Zahra Buitrago MD Work Phone: [facility] 02-19-2023 15:22-0400 Systolic blood pressure 98 mm[Hg] Zahra Buitrago MD Work Phone: [facility] 02-12-2023 08:05-0400 PAIN LEVEL 0 {score} Dr. Adriane Mccoy [facility] 02-12-2023 04:59-0400 PAIN LEVEL 0 {score} Dr. Adriane Mccoy [facility] 02-12-2023 04:01-0400 Body temperature 98.8 [degF] Dr. Adriane Mccoy [facility] 02-12-2023 04:01-0400 Diastolic blood pressure 72 mm[Hg] Dr. Adriane Espitia [facility] 02-12-2023 04:01-0400 Heart rate 87 /min Dr. Adriane Mcc[facility] 02-12-2023 04:01-0400 Respiratory rate 17 /min Dr. Adriane Mccoy [facility] 02-12-2023 04:01-0400 Systolic blood pressure 114 mm[Hg] Dr. Adriane Espitia [facility] 02-11-2023 16:27-0400 Body temperature 98.5 [degF] Dr. Adriane Mccoy [facility] 02-11-2023 16:27-0400 Diastolic blood pressure 72 mm[Hg] Dr. Adriane Espitia [facility] 02-11-2023 16:27-0400 Heart rate 74 /min Dr. Adriane Mccoy [facility] 02-11-2023 16:27-0400 Respiratory rate 16 /[facility] 16:27-0400 Systolic blood pressure 113 mm[Hg] Dr. Adriane Espitia [facility] 02-11-2023 08:28-0400 PAIN LEVEL 0 {score} Dr. Adriane Mccoy [facility] 02-11-2023 05:16-0400 PAIN LEVEL 0 {score} Dr. Adriane Mccoy [facility] 02-11-2023 01:47-0400 Body temperature 98.2 [degF] Dr. Adriane Mccoy [facility] 02-11-2023 01:47-0400 Diastolic blood pressure 76 mm[Hg] Dr. Adriane Espitia [facility] 02-11-2023 01:47-0400 Heart rate 80 /min Dr. Adriane Mccoy [facility] 02-11-2023 01:47-0400 Respiratory rate 17 /min Dr. Adriane Mccoy [facility] 02-11-2023 01:47-0400 Systolic blood pressure 110 mm[Hg] Dr. Adriane Espitia [facility] 02-10-2023 16:22-0400 Body temperature 98.5 [degF] Dr. Adriane Mccoy [facility] 02-10-2023 16:22-0400 Diastolic blood pressure 73 mm[Hg] Dr. Adriane Espitia [facility] 02-10-2023 16:22-0400 Heart rate 73 /min Dr. Adriane Mccoy [facility] 02-10-2023 16:22-0400 Respiratory rate 20 /[facility]-10-2023 16:22-0400 Systolic blood pressure 110 mm[Hg] Dr. Adriane Espitia [facility] 02-10-2023 08:58-0400 PAIN LEVEL 0 {score} Dr. Adriane Mccoy [facility] 02-10-2023 03:21-0400 Body temperature 98.5 [degF] Dr. Adriane Mccoy [facility] 02-10-2023 03:21-0400 Diastolic blood pressure 67 mm[Hg] Dr. Adriane Espitia [facility] 02-10-2023 03:21-0400 Heart rate 76 /min Dr. Adriane Mccoy [facility] 02-10-2023 03:21-0400 Respiratory rate 17 /[facility]-10-[facility]23 03:21-0400 Systolic blood pressure 104 mm[Hg] Dr. Adriane Espitia [facility] 02-10-2023 02:32-0400 PAIN LEVEL 0 {score} [facility]-09-[facility]23 19:58-0400 PAIN LEVEL 1 {score} Dr. Adriane Mccoy [facility] 02-09-2023 18:46-0400 PAIN LEVEL 3 {score} Dr. Adriane Mccoy [facility] 02-09-2023 16:19-0400 Body temperature 98.8 [degF] [facility]-09-2023 16:19-0400 Diastolic blood pressure 71 mm[Hg] Dr. Adriane Espitia [facility] 02-09-2023 16:19-0400 Heart rate 81 /min Dr. Adriane Mccoy [facility] 02-09-2023 16:19-0400 Respiratory rate 18 /[facility]-09-2023 16:19-0400 Systolic blood pressure 113 mm[Hg] Dr. Adriane Espitia [facility] 02-09-2023 08:24-0400 PAIN LEVEL 0 {score} Dr. Adriane Mccoy [facility] 02-09-2023 02:56-0400 PAIN LEVEL 0 {score} Dr. Adriane Mccoy [facility] 02-08-2023 19:51-0400 Body temperature 97.4 [degF] Dr. Adriane Mccoy [facility] 02-08-2023 19:51-0400 Diastolic blood pressure 77 mm[Hg[facility]-08-2023 19:51-0400 Heart rate 79 /[facility] 02-08-2023 19:51-0400 Respiratory rate 16 /min Dr. Adriane Mccoy [facility] 02-08-2023 19:51-0400 Systolic blood pressure 117 mm[Hg[facility] 02-08-2023 13:37-0400 Body weight 60.[address] [facility] 02-08-2023 08:24-0400 PAIN LEVEL 0 {score} Dr. Adriane Mccoy [facility] 02-07-2023 17:47-0400 Body temperature 97.5 [degF] Dr. Adriane Mccoy [facility] 02-07-2023 17:47-0400 Diastolic blood pressure 68 mm[Hg] Dr. Adriane Espitia [facility] 02-07-2023 17:47-0400 Heart rate 83 /min Dr. Adriane Mccoy [facility] 02-07-2023 17:47-0400 Respiratory rate 20 /min Dr. Adriane Mccoy [facility] 02-07-2023 17:47-0400 Systolic blood pressure 119 mm[Hg] [facility] 02-07-2023 13:59-0400 Body temperature 98.1 [degF] Dr. Adriane Mccoy [facility] 02-07-2023 13:59-0400 Diastolic blood pressure 87 mm[Hg] Dr. Adriane Espitia [facility] 02-07-2023 13:59-0400 Heart rate 77 /min Dr. Adriane Mccoy [facility] 02-07-2023 13:59-0400 Respiratory rate 20 /min Dr. Adriane Mccoy [facility] 02-07-2023 13:59-0400 Systolic blood pressure 146 mm[Hg] [facility] 02-07-2023 08:51-0400 PAIN LEVEL 0 {score} Dr. Adriane Mccoy [facility] 02-07-2023 05:11-0400 Body temperature 98 [degF] Dr. Adriane Mccoy [facility] 02-07-2023 05:11-0400 Diastolic blood pressure 72 mm[Hg] [facility]-07-2023 05:11-0400 Heart rate 70 /[facility] 05:11-0400 Respiratory rate 16 /min Dr. Adriane Mccoy [facility] 02-07-2023 05:11-0400 Systolic blood pressure 112 mm[Hg] Dr. Adriane Espitia [facility] 02-07-2023 01:10-0400 PAIN LEVEL 0 {score} Dr. Adriane Mccoy [facility] 02-06-2023 18:12-0400 Body temperature 98.2 [degF] Dr. Adriane Mccoy [facility] 02-06-2023 18:12-0400 Diastolic blood pressure 74 mm[Hg] Dr. Adriane Espitia [facility] 02-06-2023 18:12-0400 Heart rate 72 /min Dr. Adriane [facility]:12-0400 Respiratory rate 17 /min Dr. Adriane Mccoy [facility] 02-06-2023 18:12-0400 Systolic blood pressure 116 mm[Hg] Dr. Adriane Espitia [facility] 02-06-2023 17:16-0400 PAIN LEVEL 0 {score} [facility] 09:10-0400 PAIN LEVEL 0 {score} [facility] 03:23-0400 PAIN LEVEL 0 {score} [facility] 01:40-0400 Body temperature 98.7 [degF] Dr. Adriane Mccoy [facility] 02-06-2023 01:40-0400 Diastolic blood pressure 73 mm[Hg] Dr. Adriane Espitia [facility] 02-06-2023 01:40-0400 Heart rate 83 /min Dr. Adriane Mccoy [facility] 02-06-2023 01:40-0400 Respiratory rate 16 /min Dr. Adriane Mccoy [facility] 02-06-2023 01:40-0400 Systolic blood pressure 121 mm[Hg] [facility]-05-[facility]23 18:38-0400 Body temperature 99 [degF] Dr. Adriane Mccoy [facility] 02-05-2023 18:38-0400 Diastolic blood pressure 67 mm[Hg] Dr. Adriane Espitia [facility] 02-05-2023 18:38-0400 Heart rate 81 /min Dr. Adriane Mccoy [facility] 02-05-2023 18:38-0400 Respiratory rate 18 /min Dr. Adriane Lunamir [facility] 02-05-2023 18:38-0400 Systolic blood pressure 105 mm[Hg] Dr. Adriane Espitia [facility] 02-05-2023 14:45-0400 Body temperature 97.6 [degF] Dr. Adriane Lunamir [facility] 02-05-2023 14:45-0400 Diastolic blood pressure 65 mm[Hg] Dr. Adriane Espitia [facility] 02-05-2023 14:45-0400 Heart rate 64 /[facility]-05-[facility]23 14:45-0400 Respiratory rate 16 /min Dr. Adriane Mccoy [facility] 02-05-2023 14:45-0400 Systolic blood pressure 96 mm[Hg] Dr. Adriane Espitia [facility] 02-05-2023 08:13-0400 PAIN LEVEL 0 {score} Dr. Adriane Mccoy [facility] 02-05-2023 08:11-0400 PAIN LEVEL 0 {score} [facility] 02-05-[facility] 05:35-0400 Body temperature 97.5 [degF] Dr. Adriane Mccoy [facility] 02-05-2023 05:35-0400 Diastolic blood pressure 71 mm[Hg] Dr. Adriane Espitia [facility] 02-05-2023 05:35-0400 Heart rate 73 /[facility]-05-[facility] 05:35-0400 Respiratory rate 17 /[facility]-05-[facility]23 05:35-0400 Systolic blood pressure 109 mm[Hg] Dr. Adriane Espitia [facility] 02-05-2023 03:14-0400 PAIN LEVEL 3 {score} [facility]-05-[facility] 02:33-0400 PAIN LEVEL 2 {score} Dr. Adriane Espitia [facility] 02-04-2023 08:52-0400 PAIN LEVEL 0 {score} Dr. Adriane Espitia [facility] 02-04-2023 01:24-0400 Body temperature 98.6 [degF] Dr. Adriane Mccoy [facility] 02-04-2023 01:24-0400 Diastolic blood pressure 66 mm[Hg] Dr. Adriane Espitia [facility] 02-04-2023 01:24-0400 Heart rate 81 /[facility] 02-04-2023 01:24-0400 Respiratory rate 17 /min Dr. Adriane Lunamir [facility] 02-04-2023 01:24-0400 Systolic blood pressure 106 mm[Hg] Dr. Adriane Espitia [facility] 02-03-2023 16:05-0400 Body temperature 98.4 [degF] Dr. Adriaen Mccoy [facility] 02-03-2023 16:05-0400 Diastolic blood pressure 82 mm[Hg] [facility]-03-2023 16:05-0400 Heart rate 82 /min Dr. Adriane Mccoy [facility] 02-03-2023 16:05-0400 Respiratory rate 17 /min Dr. Adriane Espitia [facility] 02-03-2023 16:05-0400 Systolic blood pressure 123 mm[Hg] Dr. Adriane Espitia [facility] 02-03-2023 08:39-0400 PAIN LEVEL 0 {score} Dr. Adriane Mccoy [facility] 02-03-2023 00:36-0400 Oxygen saturation in Blood 95 % Dr. Adriane Espitia [facility] 02-03-2023 00:34-0400 Diastolic blood pressure 71 mm[Hg] Dr. Adriane Espitia [facility] 02-03-2023 00:34-0400 Systolic blood pressure 113 mm[Hg] Dr. Adriane Espitia [facility] 02-03-2023 00:33-0400 Respiratory rate 17 /min Dr. Adriane Mccoy [facility] 02-03-2023 00:30-0400 Heart rate 62 /min Dr. Adriane Mccoy [facility] 02-03-2023 00:29-0400 Body temperature 98.3 [degF] Dr. Adriane Mccoy [facility] 02-02-2023 23:38-0400 PAIN LEVEL 0 {score} Dr. Adriane Mccoy [facility] 02-02-2023 15:55-0400 Body temperature 97.4 [degF] Dr. Adriane Mccoy [facility] 02-02-2023 15:55-0400 Diastolic blood pressure 68 mm[Hg] Dr. Adriane Espitia [facility] 02-02-2023 15:55-0400 Heart rate 80 /min Dr. Adriane Mccoy [facility] 02-02-2023 15:55-0400 Respiratory rate 16 /[facility] 02-02-2023 15:55-0400 Systolic blood pressure 105 mm[Hg] Dr. Adriane Espitia [facility] 02-02-2023 12:21-0400 Body temperature 97.6 [degF] Dr. Adriane Mccoy [facility] 02-02-2023 12:21-0400 Diastolic blood pressure 81 mm[Hg] Dr. Adriane Espitia [facility] 02-02-2023 12:21-0400 Heart rate 81 /min Dr. Adriane Mccoy [facility] 02-02-2023 12:21-0400 Respiratory rate 16 /min Dr. Adriane Mccoy [facility] 02-02-2023 12:21-0400 Systolic blood pressure 131 mm[Hg] Dr. Adriane Espitia [facility] 02-02-2023 08:10-0400 PAIN LEVEL 0 {score} [facility] 02-02-[facility]23 02:12-0400 Body temperature 98.1 [degF] Dr. Adriane Mccoy [facility] 02-02-2023 02:12-0400 Diastolic blood pressure 70 mm[Hg] [facility]-02-2023 02:12-0400 Heart rate 71 /min Dr. Adriane Mccoy [facility] 02-02-2023 02:12-0400 Respiratory rate 18 /min Dr. Adriane Mccoy [facility] 02-02-2023 02:12-0400 Systolic blood pressure 112 mm[Hg] Dr. Adriane Espitia [facility] 02-02-2023 00:43-0400 PAIN LEVEL 0 {score} Dr. Adriane Mccoy [facility] 02-01-2023 22:14-0400 Oxygen saturation in Blood 94 % Dr. Adriane Espitia [facility] 02-01-2023 22:11-0400 Oxygen saturation in Blood 94 % Dr. Adriane Espitia [facility] 02-01-2023 17:18-0400 PAIN LEVEL 0 {score} [facility] 02-01-2023 15:46-0400 Body temperature 98.3 [degF] Dr. Adriane Mccoy [facility] 02-01-2023 15:46-0400 Diastolic blood pressure 70 mm[Hg] Dr. Adriane Espitia [facility] 02-01-2023 15:46-0400 Heart rate 70 /min Dr. Adriane Mccoy [facility] 02-01-2023 15:46-0400 Respiratory rate 19 /min Dr. Adriane Mccoy [facility] 02-01-2023 15:46-0400 Systolic blood pressure 109 mm[Hg] Dr. Adriane Espitia [facility] 02-01-2023 14:56-0400 Body weight 65.[address] [facility] 02-01-2023 14:36-0400 Body temperature 98.4 [degF] Dr. Adriane Mccoy [facility] 02-01-2023 14:36-0400 Diastolic blood pressure 80 mm[Hg] Dr. Adriane Espitia [facility] 02-01-2023 14:36-0400 Heart rate 70 /[facility] 02-01-2023 14:36-0400 Respiratory rate 18 /[facility] 02-01-2023 14:36-0400 Systolic blood pressure 135 mm[Hg] Dr. Adriane Espitia [facility] 02-01-2023 14:26-0400 Body weight 65.[address] [facility] 02-01-2023 09:47-0400 PAIN LEVEL 0 {score} Dr. Adriane Mccoy [facility] 02-01-2023 05:16-0400 Body temperature 97.6 [degF] Dr. Adriane Mccoy [facility] 02-01-2023 05:16-0400 Diastolic blood pressure 71 mm[Hg] [facility] [place]-01-2023 05:16-0400 Heart rate 75 /min Dr. Adriane Mccoy [facility] 02-01-2023 05:16-0400 Respiratory rate 18 /[facility]23 05:16-0400 Systolic blood pressure 117 mm[Hg] Dr. Adriane Espitia [facility] 01-31-2023 16:00-0400 Body temperature 98.1 [degF] Dr. Adriane Mccoy [facility] 01-31-2023 16:00-0400 Diastolic blood pressure 71 mm[Hg] Dr. Adriane Espitia [facility] 01-31-2023 16:00-0400 Heart rate 76 /[facility] 01-31-2023 16:00-0400 Respiratory rate 17 /[facility] 01-31-2023 16:00-0400 Systolic blood pressure 109 mm[Hg] Dr. Adriane Espitia [facility] 01-31-2023 08:45-0400 PAIN LEVEL 0 {score} Dr. Adriane Mccoy [facility] 01-30-2023 08:08-0400 PAIN LEVEL 0 {score} Dr. Adriane Mccoy [facility] 01-30-2023 01:17-0400 Body temperature 99 [degF] Dr. Adriane Mccoy [facility] 01-30-2023 01:17-0400 Diastolic blood pressure 76 mm[Hg] Dr. Adriane Espitia [facility] 01-30-2023 01:17-0400 Heart rate 86 /min Dr. Adriane Mccoy [facility] 01-30-2023 01:17-0400 Respiratory rate 17 /min Dr. Adriane Lunamir [facility] 01-30-2023 01:17-0400 Systolic blood pressure 127 mm[Hg] [facility] [place] 01-29-2023 18:43-0400 Body temperature 97.1 [degF] Dr. Adriane Mccoy [facility] 01-29-2023 18:43-0400 Diastolic blood pressure 74 mm[Hg] Dr. Adriane Espitia [facility] 01-29-2023 18:43-0400 Heart rate 84 /[facility] 01-29-2023 18:43-0400 Respiratory rate 17 /[facility] 01-29-2023 18:43-0400 Systolic blood pressure 128 mm[Hg] Dr. Adriane Espitia [facility] 01-29-2023 13:51-0400 Body temperature 98.5 [degF] Dr. Adriane Mccoy [facility] 01-29-2023 13:51-0400 Diastolic blood pressure 76 mm[Hg] Dr. Adriane Espitia [facility] 01-29-2023 13:51-0400 Heart rate 74 /min Dr. Adriane Mccoy [facility] 01-29-2023 13:51-0400 Respiratory rate 17 /[facility] 01-29-2023 13:51-0400 Systolic blood pressure 130 mm[Hg] [facility] [place] 01-29-2023 08:20-0400 PAIN LEVEL 0 {score} Dr. Adriane Mccoy [facility] 01-29-2023 05:12-0400 PAIN LEVEL 0 {score} Dr. Adriane Mccoy [facility] 01-29-2023 01:28-0400 Body temperature 98.1 [degF] Dr. Ardiane Mccoy [facility] 01-29-2023 01:28-0400 Diastolic blood pressure 74 mm[Hg] Dr. Adriane Espitia [facility] 01-29-2023 01:28-0400 Heart rate 72 /[facility] 01-29-2023 01:28-0400 Respiratory rate 16 /min Dr. Adriane Mccoy [facility] 01-29-2023 01:28-0400 Systolic blood pressure 127 mm[Hg] Dr. Adriane Espitia [facility] 01-28-2023 19:25-0400 Body temperature 98.2 [degF] Dr. Adriane Mccoy [facility] 01-28-2023 19:25-0400 Diastolic blood pressure 75 mm[Hg] [facility] [place] 01-28-2023 19:25-0400 Heart rate 75 /min Dr. Adriane Mccoy [facility] 01-28-2023 19:25-0400 Respiratory rate 17 /min Dr. Adriane Mccoy [facility] 01-28-2023 19:25-0400 Systolic blood pressure 121 mm[Hg] [facility] [place] 01-28-2023 11:56-0400 Body temperature 97.4 [degF] Dr. Adriane Mccoy [facility] 01-28-2023 11:56-0400 Diastolic blood pressure 80 mm[Hg] Dr. Adriane Espitia [facility] 01-28-2023 11:56-0400 Heart rate 88 /min Dr. Adriane Mccoy [facility] 01-28-2023 11:56-0400 Respiratory rate 21 /[facility] 01-28-2023 11:56-0400 Systolic blood pressure 124 mm[Hg] Dr. Adriane Espitia [facility] 01-28-2023 08:31-0400 PAIN LEVEL 0 {score} Dr. Adriane Mccoy [facility] 01-28-2023 04:36-0400 PAIN LEVEL 0 {score} Dr. Adriane Mccoy [facility] 01-28-2023 03:39-0400 Body temperature 98.3 [degF] Dr. Adriane Mccoy [facility] 01-28-2023 03:39-0400 Diastolic blood pressure 70 mm[Hg] Dr. Adriane Espitia [facility] 01-28-2023 03:39-0400 Heart rate 81 /min Dr. Adriane Mccoy [facility] 01-28-2023 03:39-0400 Respiratory rate 16 /min Dr. Adriane Mccoy [facility] 01-28-2023 03:39-0400 Systolic blood pressure 120 mm[Hg] [facility] [place] 01-27-2023 16:03-0400 Body temperature 98.5 [degF] Dr. Adriane Mccoy [facility] 01-27-2023 16:03-0400 Diastolic blood pressure 58 mm[Hg] [facility] [place] 01-27-2023 16:03-0400 Heart rate 77 /min Dr. Adriane Mccoy [facility] 01-27-2023 16:03-0400 Respiratory rate 17 /[facility] 01-27-2023 16:03-0400 Systolic blood pressure 113 mm[Hg] Dr. Adriane Esiptia [facility] 01-27-2023 12:20-0400 Body temperature 98.1 [degF] Dr. Adriane Mccoy [facility] 01-27-2023 12:20-0400 Diastolic blood pressure 71 mm[Hg] Dr. Adriane Espitia [facility] 01-27-2023 12:20-0400 Heart rate 84 /min Dr. Adriane Mccoy [facility] 01-27-2023 12:20-0400 Respiratory rate 19 /[facility] 01-27-2023 12:20-0400 Systolic blood pressure 121 mm[Hg] [facility] [place] 01-27-2023 11:45-0400 Body weight 64.[address] [facility] 01-27-2023 08:25-0400 PAIN LEVEL 0 {score} Dr. Adriane Mccoy [facility] 01-27-2023 03:46-0400 Body temperature 98.4 [degF] [facility] 01-27-2023 03:46-0400 Diastolic blood pressure 74 mm[Hg] [facility] [place] 01-27-2023 03:46-0400 Heart rate 76 /min Dr. Adriane Mccoy [facility] 01-27-2023 03:46-0400 Respiratory rate 16 /min Dr. Adriane Espitia [facility] 01-27-2023 03:46-0400 Systolic blood pressure 115 mm[Hg] [facility] [place] 01-26-2023 23:42-0400 PAIN LEVEL 0 {score} Dr. Adriane Mccoy [facility] 01-26-2023 15:51-0400 Body temperature 98.3 [degF] [facility] 01-26-2023 15:51-0400 Diastolic blood pressure 73 mm[Hg] Dr. Adriane Espitia [facility] 01-26-2023 15:51-0400 Heart rate 80 /[facility] 01-26-2023 15:51-0400 Respiratory rate 19 /min Dr. Adriane Mccoy [facility] 01-26-2023 15:51-0400 Systolic blood pressure 115 mm[Hg] [facility] [place] 01-26-2023 08:18-0400 PAIN LEVEL 0 {score} Dr. Adriane Mccoy [facility] 01-25-2023 22:35-0400 Body weight 63.[address] [facility] 01-25-2023 19:57-0400 Body weight 63.[address] Adriane [address] [facility] 01-25-2023 16:56-0400 Body temperature 97.6 [degF] Dr. Adriane Mccoy [facility] 01-25-2023 16:56-0400 Diastolic blood pressure 72 mm[Hg] Dr. Adriane Espitia [facility] 01-25-2023 16:56-0400 Heart rate 75 /min Dr. Adriane Mccoy [facility] 01-25-2023 16:56-0400 Oxygen saturation in Blood 95 % Dr. Adriane Espitia [facility] 01-25-2023 16:56-0400 Respiratory rate 18 /[facility] 01-25-2023 16:56-0400 Systolic blood pressure 130 mm[Hg] [facility] [place] 01-25-2023 11:33-0400 Body temperature 97.1 [degF] Dr. Adriane Mccoy [facility] 01-25-2023 11:33-0400 Diastolic blood pressure 81 mm[Hg] [facility] [place] 01-25-2023 11:33-0400 Heart rate 71 /min Dr. Adriane Mccoy [facility] 01-25-2023 11:33-0400 Respiratory rate 16 /min Dr. Adriane Mccoy [facility] 01-25-2023 11:33-0400 Systolic blood pressure 133 mm[Hg] [facility] [place] 01-25-2023 08:43-0400 PAIN LEVEL 0 {score} Dr. Adriane Mccoy [facility] 01-24-2023 19:59-0400 Body weight 63.[address]ane [address] [facility] 01-24-2023 17:41-0400 Body temperature 97.1 [degF] Dr. Adriane Mccoy [facility] 01-24-2023 17:41-0400 Diastolic blood pressure 73 mm[Hg] [facility] [place] 01-24-2023 17:41-0400 Heart rate 60 /min Dr. Adriane Mccoy [facility] 01-24-2023 17:41-0400 Oxygen saturation in Blood 97 % Dr. Adriane Espitia [facility] 01-24-2023 17:41-0400 Respiratory rate 20 /min Dr. Adriane Mccoy [facility] 01-24-2023 17:41-0400 Systolic blood pressure 141 mm[Hg] [facility] [place] 01-24-2023 13:57-0400 Body weight 65.[address] [facility] 01-24-2023 12:35-0400 Body temperature 98.6 [degF] Dr. Adriane Mccoy [facility] 01-24-2023 12:35-0400 Diastolic blood pressure 72 mm[Hg] Dr. Adriane Espitia [facility] 01-24-2023 12:35-0400 Heart rate 71 /[facility] 01-24-2023 12:35-0400 Respiratory rate 17 /min Dr. Adriane Mccoy [facility] 01-24-2023 12:35-0400 Systolic blood pressure 131 mm[Hg] Dr. Adriane Espitia [facility] 01-24-2023 08:31-0400 PAIN LEVEL 0 {score} Dr. Adriane Espitia [facility] 01-24-2023 01:01-0400 Body temperature 97.5 [degF] [facility]23 01:01-0400 Diastolic blood pressure 73 mm[Hg] Dr. Adriane Espitia [facility] 01-24-2023 01:01-0400 Heart rate 61 /[facility] 01-24-2023 01:01-0400 Respiratory rate 16 /[facility] 01-24-2023 01:01-0400 Systolic blood pressure 119 mm[Hg] Dr. Adriane Espitia [facility] 01-23-2023 23:11-0400 PAIN LEVEL 0 {score} Dr. Ardiane Mccoy [facility] 01-23-2023 19:27-0400 Body weight 64.[address] Adriane Espitia [facility] 01-23-2023 18:03-0400 PAIN LEVEL 0 {score} Dr. Adriane Mccoy [facility] 01-23-2023 17:38-0400 Oxygen saturation in Blood 96 % Dr. Adriane Espitia [facility] 01-23-2023 17:38-0400 PAIN LEVEL 0 {score} Dr. Adriane Mccoy [facility] 01-23-2023 16:19-0400 Body temperature 97.6 [degF] Dr. Adriane Mccoy [facility] 01-23-2023 16:19-0400 Diastolic blood pressure 73 mm[Hg] Dr. Adriane Espitia [facility] 01-23-2023 16:19-0400 Heart rate 70 /min Dr. Adriane Espitia [facility] 01-23-2023 16:19-0400 Respiratory rate 16 /min Dr. Adriane Espitia [facility] 01-23-2023 16:19-0400 Systolic blood pressure 119 mm[Hg] Dr. Adriane Espitia [facility] 01-01-2023 14:30-0400 Body height 168.91 cm David Caputo Other [employer] Other 01-01-2023 14:30-0400 Body mass index (BMI) [Ratio] 20.67 kg/m2 David Caputo Other [employer] Other 01-01-2023 14:30-0400 Body weight 58.97 kg David Bolton [employer] Other 01-01-2023 14:30-0400 Diastolic blood pressure 59 mm[Hg] David Caputo Other [employer] Other 01-01-2023 14:30-0400 Systolic blood pressure 87 mm[Hg] David Caputo Other [employer] Other 12-26-2022 16:02-0400 Body temperature 97.9 [degF] Ma Sand Work Phone: [facility] 12-26-2022 16:02-0400 Diastolic blood pressure 58 mm[Hg] Ma Sand Work Phone: [facility] 12-26-2022 16:02-0400 Heart rate 76 /min Ma Sand Work Phone: [facility] 12-26-2022 16:02-0400 Respiratory rate 16 /min Ma Sand Work Phone: [facility] 12-26-2022 16:02-0400 SaO2% (BldA) [Mass fraction] 100 % Ma Sand Work Phone: [facility] 12-26-2022 16:02-0400 Systolic blood pressure 89 mm[Hg] Ma Sand Work Phone: [facility] 12-04-2022 14:30-0400 Body height 168.91 cm David Caputo Other [employer] Other 12-04-2022 14:30-0400 Body mass index (BMI) [Ratio] 20.67 kg/m2 David Caputo Other [employer] Other 12-04-2022 14:30-0400 Body weight 58.97 kg David Caputo Other [employer] Other 12-04-2022 14:30-0400 Diastolic blood pressure 68 mm[Hg] David Caputo Other [employer] Other 12-04-2022 14:30-0400 SaO2% (BldA) [Mass fraction] 93 % David Caputo Other [employer] Other 12-04-2022 14:30-0400 Systolic blood pressure 109 mm[Hg] David Caputo Other [employer] Other 11-28-2022 15:14-0400 Body height 170.8 cm Zahra Buitrago MD Work Phone: [facility] 11-28-2022 15:14-0400 Body temperature 97.2 [degF] Zahra Buitrago MD Work Phone: [facility] 11-28-2022 15:14-0400 Diastolic blood pressure 63 mm[Hg] Zahra Buitrago MD Work Phone: [facility] 11-28-2022 15:14-0400 Heart rate 74 /min Zahra Buitrago MD Work Phone: [facility] 11-28-2022 15:14-0400 Respiratory rate 18 /min Zahra Buitrago MD Work Phone: [facility] 11-28-2022 15:14-0400 SaO2% (BldA) [Mass fraction] 98 % Zahra Buitrago MD Work Phone: [facility] 11-28-2022 15:14-0400 Systolic blood pressure 92 mm[Hg] Zahra Buitrago MD Work Phone: [facility] 10-31-2022 15:31-0400 Body height 170.8 cm Ma Sand Work Phone: [facility] 10-31-2022 15:31-0400 Body temperature 97.59 [degF] Ma Sand Work Phone: [facility] 10-31-2022 15:31-0400 Body weight 64.41 kg Ma Sand Work Phone: [facility] 10-31-2022 15:31-0400 Diastolic blood pressure 63 mm[Hg] Ma Sand Work Phone: [facility] 10-31-2022 15:31-0400 Heart rate 73 /min Ma Sand Work Phone: [facility] 10-31-2022 15:31-0400 Respiratory rate 16 /min Ma Sand Work Phone: [facility] 10-31-2022 15:31-0400 SaO2% (BldA) [Mass fraction] 98 % Ma Sand Work Phone: [facility] 10-31-2022 15:31-0400 Systolic blood pressure 115 mm[Hg] Ma Sand Work Phone: [facility] 09-05-2022 14:17-0500 Body temperature 97.5 [degF] Ma Sand Work Phone: [facility] 09-05-2022 14:17-0500 Diastolic blood pressure 67 mm[Hg] Ma Sand Work Phone: [facility] 09-05-2022 14:17-0500 Heart rate 65 /min Ma Sand Work Phone: [facility] 09-05-2022 14:17-0500 Respiratory rate 18 /min Ma Sand Work Phone: [facility] 09-05-2022 14:17-0500 SaO2% (BldA) [Mass fraction] 97 % Ma Sand Work Phone: [facility] 09-05-2022 14:17-0500 Systolic blood pressure 119 mm[Hg] Ma Sand Work Phone: [facility] 08-08-2022 14:39-0500 Body temperature 97.9 [degF] Zahra Buitrago MD Work Phone: [facility] 08-08-2022 14:39-0500 Body weight 64.41 kg Zahra Buitrago MD Work Phone: [facility] 08-08-2022 14:39-0500 Diastolic blood pressure 76 mm[Hg] Zahra Buitrago MD Work Phone: [facility] 08-08-2022 14:39-0500 Heart rate 88 /min Zahra Buitrago MD Work Phone: [facility] 08-08-2022 14:39-0500 Respiratory rate 40 /min Zahra Buitrago MD Work Phone: [facility] 08-08-2022 14:39-0500 SaO2% (BldA) [Mass fraction] 94 % Zahra Buitrago MD Work Phone: [facility] 08-08-2022 14:39-0500 Systolic blood pressure 111 mm[Hg] Zahra Buitrago MD Work Phone: [facility] 07-17-2022 15:45-0500 Body height 168.91 cm David Caputo Other [employer] Other 07-17-2022 15:45-0500 Body mass index (BMI) [Ratio] 22.57 kg/m2 David Caputo Other [employer] Other 07-17-2022 15:45-0500 Body weight 64.41 kg David Caputo Other [employer] Other 07-17-2022 15:45-0500 Diastolic blood pressure 58 mm[Hg] David Caputo Other [employer] Other 07-17-2022 15:45-0500 SaO2% (BldA) [Mass fraction] 99 % David Caputo Other [employer] Other 07-17-2022 15:45-0500 Systolic blood pressure 102 mm[Hg] David Caputo Other [facility] [employer] Other 07-03-2022 13:55-0500 Body height 170.8 cm Zahra Buitrago MD Work Phone: [facility] 07-03-2022 13:55-0500 Body temperature 97.39 [degF] Zahra Buitrago MD Work Phone: [facility] 07-03-2022 13:55-0500 Body weight 67.31 kg Zahra Buitrago MD Work Phone: [facility] 07-03-2022 13:55-0500 Diastolic blood pressure 82 mm[Hg] Zahra Buitrago MD Work Phone: [facility] 07-03-2022 13:55-0500 Heart rate 77 /min Zahra Buitrago MD Work Phone: [facility] 07-03-2022 13:55-0500 Respiratory rate 16 /min Zahra Buitrago MD Work Phone: [facility] 07-03-2022 13:55-0500 SaO2% (BldA) [Mass fraction] 100 % Zahra Buitrago MD Work Phone: [facility] 07-03-2022 13:55-0500 Systolic blood pressure 126 mm[Hg] Zahra Buitrago MD Work Phone: [facility] 06-06-2022 13:32-0500 Body height 170.8 cm Zahra Buitrago MD Work Phone: [facility] 06-06-2022 13:32-0500 Body temperature 97.11 [degF] Zahra Buitrago MD Work Phone: [facility] 06-06-2022 13:32-0500 Body weight 65.77 kg Zahra Buitrago MD Work Phone: [facility] 06-06-2022 13:32-0500 Diastolic blood pressure 60 mm[Hg] Zahra Buitrago MD Work Phone: [facility] 06-06-2022 13:32-0500 Heart rate 66 /min Zahra Buitrago MD Work Phone: [facility] 06-06-2022 13:32-0500 Respiratory rate 24 /min Zahra Buitrago MD Work Phone: [facility] 06-06-2022 13:32-0500 SaO2% (BldA) [Mass fraction] 100 % Zahra Buitrago MD Work Phone: [facility] 06-06-2022 13:32-0500 Systolic blood pressure 109 mm[Hg] Zahra Buitrago MD Work Phone: [facility] 05-08-2022 13:45-0500 Body height 170.8 cm Zahra Buitrago MD Work Phone: [facility] 05-08-2022 13:45-0500 Body temperature 97.81 [degF] Zahra Buitrago MD Work Phone: [facility] 05-08-2022 13:45-0500 Body weight 62.41 kg Zahra Buitrago MD Work Phone: [facility] 05-08-2022 13:45-0500 Diastolic blood pressure 58 mm[Hg] Zahra Buitrago MD Work Phone: [facility] 05-08-2022 13:45-0500 Heart rate 63 /min Zahra Buitrago MD Work Phone: [facility] 05-08-2022 13:45-0500 Respiratory rate 16 /min Zahra Buitrago MD Work Phone: [facility] 05-08-2022 13:45-0500 SaO2% (BldA) [Mass fraction] 97 % Zahra Buitrago MD Work Phone: [facility] 05-08-2022 13:45-0500 Systolic blood pressure 102 mm[Hg] Zahra Buitrago MD Work Phone: [facility] 04-10-2022 12:47-0400 Body height 170.8 cm Zahra Buitrago MD Work Phone: [facility] 04-10-2022 12:47-0400 Body temperature 97.7 [degF] Zahra Buitrago MD Work Phone: [facility] 04-10-2022 12:47-0400 Body weight 66.04 kg Zahra Buitrago MD Work Phone: [facility] 04-10-2022 12:47-0400 Diastolic blood pressure 70 mm[Hg] Zahra Buitrago MD Work Phone: [facility] 04-10-2022 12:47-0400 Heart rate 60 /min Zahra Buitrago MD Work Phone: [facility] 04-10-2022 12:47-0400 Respiratory rate 16 /min Zahra Buitrago MD Work Phone: [facility] 04-10-2022 12:47-0400 SaO2% (BldA) [Mass fraction] 99 % Zahra Buitrago MD Work Phone: [facility] 04-10-2022 12:47-0400 Systolic blood pressure 125 mm[Hg] Zahra Buitrago MD Work Phone: [facility] 03-13-2022 12:57-0400 Body height 170.8 cm Rola Gordon APRN.[employer] Work Phone: [facility] 03-13-2022 12:57-0400 Body temperature 97.11 [degF] Rola Gordon APRN.[employer] Work Phone: [facility] 03-13-2022 12:57-0400 Body weight 65.77 kg Rloa Gordon APRN.[employer] Work Phone: [facility] 03-13-2022 12:57-0400 Diastolic blood pressure 68 mm[Hg] Rola Gordon APRN.[employer] Work Phone: [facility] 03-13-2022 12:57-0400 Heart rate 74 /min Rola Gordon APRN.[employer] Work Phone: [facility] 03-13-2022 12:57-0400 Respiratory rate 20 /min Rola Gordon APRN.[employer] Work Phone: [facility] 03-13-2022 12:57-0400 SaO2% (BldA) [Mass fraction] 100 % Rola Gordon APRN.[employer] Work Phone: [facility] 03-13-2022 12:57-0400 Systolic blood pressure 119 mm[Hg] Rola Gordon APRN.[employer] Work Phone: [facility] 02-13-2022 14:09-0400 Body height 170.8 cm Zahra Buitrago MD Work Phone: [facility] 02-13-2022 14:09-0400 Body temperature 97.81 [degF] Zahra Buitrago MD Work Phone: [facility] 02-13-2022 14:09-0400 Body weight 65.14 kg Zahra Buitrago MD Work Phone: [facility] 02-13-2022 14:09-0400 Diastolic blood pressure 74 mm[Hg] Zahra Buitrago MD Work Phone: [facility] 02-13-2022 14:09-0400 Heart rate 62 /min Zahra Buitrago MD Work Phone: [facility] 02-13-2022 14:09-0400 Respiratory rate 16 /min Zahra Buitrago MD Work Phone: [facility] 02-13-2022 14:09-0400 SaO2% (BldA) [Mass fraction] 95 % Zahra Buitrago MD Work Phone: [facility] 02-13-2022 14:09-0400 Systolic blood pressure 108 mm[Hg] Zahra Buitrago MD Work Phone: [facility] 02-04-2022 13:50-0400 63.6 1 David Derrick Caputo Work Phone: [facility] 250 DO Work Phone: Comment on above: [facility] 01-16-2022 14:00-0400 Body height 172.72 cm Nate Hanson Other [facility] Other 01-16-2022 14:00-0400 Body mass index (BMI) [Ratio] 21.28 kg/m2 Nate Hanson Other [facility] Other 01-16-2022 14:00-0400 Body weight 63.5 kg Nate Lamormack Other [facility] Other 12-05-2021 14:57-0400 Body height 170.8 cm Zahra Buitrago MD Work Phone: [facility] 12-05-2021 14:57-0400 Body temperature 97.39 [degF] Zahra Buitrago MD Work Phone: [facility] 12-05-2021 14:57-0400 Body weight 73.48 kg Zahra Buitrago MD Work Phone: [facility] 12-05-2021 14:57-0400 Diastolic blood pressure 85 mm[Hg] Zahra Buitrago MD Work Phone: [facility] 12-05-2021 14:57-0400 Heart rate 80 /min Zahra Buitrago MD Work Phone: [facility] 12-05-2021 14:57-0400 Respiratory rate 16 /min Zahra Buitrago MD Work Phone: [facility] 12-05-2021 14:57-0400 SaO2% (BldA) [Mass fraction] 97 % Zahra Buitrago MD Work Phone: [facility] 12-05-2021 14:57-0400 Systolic blood pressure 123 mm[Hg] Zahra Buitrago MD Work Phone: [facility] Encounters Encounter Date Encounter Type Care Provider Facility Start: 07-14-2023 End: 07-14-2023 ambulatory David Caputo Other [employer] Other Start: 07-14-2023 Telephone encounter David Caputo [facility] Start: 06-30-2023 End: 06-30-2023 ambulatory David Caputo Other [employer] Other Start: 06-30-2023 Telephone encounter David Caputo [facility] Start: 06-04-2023 End: 06-04-2023 ambulatory David Caputo Other [employer] Other Start: 06-04-2023 Office outpatient vi sit 25 minutes David Caputo [facility] Start: 05-22-2023 End: 05-22-2023 ambulatory David Caputo Other [employer] Other Start: 05-22-2023 Telephone encounter David Caputo [facility] Start: 05-19-2023 End: 05-19-2023 ambulatory David Caputo Other [employer] Other Start: 05-19-2023 Telephone encounter David Caputo [facility] Start: 05-06-2023 End: 05-06-2023 ambulatory David Caputo Other [employer] Other Start: 05-06-2023 Telephone encounter David Caputo [facility] Start: 04-14-2023 End: 04-14-2023 ambulatory David Caputo Other [employer] Other Start: 04-14-2023 Telephone encounter David Caputo [facility] Start: 04-09-2023 End: 04-09-2023 ambulatory DAVID CAPUTO Facility:[facility] Start: 04-09-2023 End: 04-09-2023 Nursing evaluation of patient and report Ma Nurse Zelalem Hart Work Phone: Hematology/Oncology Comment on above: Macrocytosis (Primar y Dx); Abnormal weight loss; Adenocarcinoma (HCC); Cancer of ampulla of Vater (HCC) Start: 04-07-2023 End: 04-07-2023 ambulatory David Caputo Other [employer] Other Start: 04-07-2023 Telephone encounter David Caputo [facility] Start: 03-31-2023 End: 03-31-2023 ambulatory David Caputo Other [employer] Other Start: 03-31-2023 Telephone encounter David Caputo [facility] Start: 03-30-2023 Refill Zahra ibrahim MD Work Phone: Hematology/Oncology Comment on above: Refill Request Start: 03-20-2023 End: 03-20-2023 ambulatory David Caputo Other [employer] Other Start: 03-20-2023 Telephone encounter David Caputo [facility] Start: 03-19-2023 End: 03-19-2023 ambulatory David Caputo Other [employer] Other Start: 03-19-2023 Telephone encounter David Caputo [facility] Start: 03-16-2023 End: 03-16-2023 ambulatory David Caputo Other [employer] Other Start: 03-16-2023 Telephone encounter David Caputo [facility] Start: 03-11-2023 Telephone encounter Zahra foster MD Work Phone: Cancer [facility] Comment on above: Future Appointment; Results Start: 03-11-2023 End: 03-11-2023 ambulatory DAVID CAPUTO Facility:[facility] Start: 03-11-2023 End: 03-11-2023 Nursing evaluation [...] Start: 03-11-2023 End: 03-11-2023 ambulatory DAVID CAPUTO Facility:[facility] Start: 03-10-2023 End: 03-10-2023 ambulatory David Caputo Other [employer] Other Start: 03-10-2023 Telephone encounter David Caputo [facility] Start: 03-09-2023 End: 03-09-2023 ambulatory David Caputo Other [employer] Other Start: 03-09-2023 Telephone encounter David Caputo [facility] Start: 03-05-2023 End: 03-05-2023 ambulatory David Caputo Other [employer] Other Start: 03-05-2023 Office outpatient vi sit 15 minutes David Caputo [facility] Start: 03-05-2023 Telephone encounter Zahra foster MD [...] Start: 02-19-2023 End: 02-20-2023 ambulatory DAVID CAPUTO [employer] Other Start: 02-19-2023 Telephone encounter David Caputo [facility] Start: 02-17-2023 Telephone encounter Zahra foster MD Work Phone: Hematology/Oncology Comment on above: Lab Orders Start: 02-13-2023 End: 02-13-2023 ambulatory David Caputo Other [employer] Other Start: 02-13-2023 Telephone encounter David Caputo [facility] Start: 02-10-2023 End: 02-10-2023 ambulatory David Caputo Facility:[facility] Start: 02-10-2023 End: 02-10-2023 Patient encounter procedure MD David Caputo Work Phone: [facility] Start: 01-27-2023 End: 01-27-2023 ambulatory Adriane Espitia Facility:[facility] Start: 01-27-2023 End: 01-27-2023 ambulatory MD David Caputo Work Phone: [facility] Work Phone: Start: 01-27-2023 End: 01-27-2023 Patient encounter procedure MD David Caputo Work Phone: [facility] Start: 01-21-2023 Telephone encounter Susan kurtz RN Work Phone: Hematology/Oncology Comment on above: Hospital Admission Start: 01-14-2023 End: 01-14-2023 ambulatory David Caputo Other [employer] Other Start: 01-14-2023 Telephone encounter David Caputo [facility] Start: 01-13-2023 Telephone encounter Cassandra Hernandez R N Hematology/Oncology Comment on above: Results; Appointment Start: 01-12-2023 End: 01-12-2023 ambulatory David Caputo Other [employer] Other Start: 01-12-2023 Telephone encounter David Caputo [facility] Start: 01-01-2023 End: 01-01-2023 ambulatory David Caputo Other [employer] Other Start: 01-01-2023 Office outpatient vi sit 15 minutes David Caputo [facility] Start: 12-26-2022 End: 12-26-2022 ambulatory DAVID CAPUTO Facility:[facility] Start: 12-26-2022 End: 12-26-2022 Nursing evaluation of patient and report Lamont Hart Work Phone: Hematology/Oncology Comment on above: Macrocytosis (Primar y Dx); Abnormal weight loss; Adenocarcinoma (HCC); Cancer of ampulla of Vater (HCC) Start: 12-08-2022 End: 12-08-2022 ambulatory David Caputo Other [employer] Other Start: 12-08-2022 Telephone encounter David Caputo [facility] Start: 12-04-2022 End: 12-04-2022 ambulatory David Caputo Other [employer] Other Start: 12-04-2022 Office outpatient vi sit 15 minutes David Caputo [facility] Start: 11-28-2022 End: 11-28-2022 ambulatory DAVID CAPUTO Facility:[facility] Start: 11-28-2022 End: 11-28-2022 Nursing evaluation [...] 11-27-2022 End: 11-27-2022 ambulatory David Caputo Other [employer] Other Start: 11-27-2022 Telephone encounter David Harshal [facility] Start: 11-21-2022 End: 11-21-2022 ambulatory David Caputo Other [employer] Other Start: 11-21-2022 Telephone encounter David Caputo [facility] Start: 11-04-2022 End: 11-04-2022 ambulatory David Harshal Other [employer] Other Start: 11-04-2022 Telephone encounter David Harshal [facility] Start: 10-31-2022 End: 10-31-2022 ambulatory DAVID Meza CAPUTO Facility:[facility] Start: 10-31-2022 End: 10-31-2022 Nursing evaluation of patient and report Lamont Hart Work Phone: Hematology/Oncology Comment on above: Macrocytosis (Primar y Dx); Abnormal weight loss; Adenocarcinoma (HCC); Cancer of ampulla of Vater (HCC) Start: 10-28-2022 End: 10-28-2022 ambulatory Zahra Buitrago MD Work Phone: [employer] Other Comment on above: Refill Request Start: 10-28-2022 Telephone encounter David Caputo [facility] Start: 10-03-2022 End: 10-04-2022 ambulatory DAVID Meza CAPUTO Facility:[facility] Start: 10-03-2022 End: 10-03-2022 Nursing evaluation of patient and report Lamont Hart Work Phone: Hematology/Oncology Comment on above: Macrocytosis (Primar y Dx); Abnormal weight loss; Adenocarcinoma (HCC); Cancer of ampulla of Vater (HCC) Start: 09-29-2022 End: 09-29-2022 ambulatory David Caputo Other [employer] Other Start: 09-29-2022 Telephone encounter David Caputo [facility] Start: 09-17-2022 End: 09-17-2022 ambulatory David Caputo Other [employer] Other Start: 09-17-2022 Telephone encounter David Caputo [facility] Start: 09-16-[address] David Caputo Facility: Start: 09-08-2022 End: 09-08-2022 ambulatory David Caputo Other [employer] Other Start: 09-08-2022 Telephone encounter David Caputo [facility] Start: 09-05-2022 End: 09-06-2022 ambulatory DAVID CAPUTO Facility:[facility] Start: 09-05-2022 End: 09-05-2022 Nursing evaluation of patient and report Lamont Hart Work Phone: Hematology/Oncology Comment on above: Macrocytosis (Primar y Dx); Abnormal weight loss; Adenocarcinoma (HCC); Cancer of ampulla of Vater (HCC) Start: 08-19-2022 Refill Zahra ibrahim MD Work Phone: Hematology/Oncology Comment on above: Refill Request Start: 08-11-2022 End: 08-11-2022 ambulatory David Caputo Other [employer] Other Start: 08-11-2022 Telephone encounter David Caputo [facility] Start: 08-08-2022 End: 08-09-2022 ambulatory DAVID CAPUTO Facility:[facility] Start: 08-08-2022 End: 08-08-2022 Office outpatient [...] 07-24-2022 End: 07-24-2022 ambulatory David Caputo Other [employer] Other Start: 07-24-2022 Telephone encounter David Caputo [facility] Start: 07-17-2022 End: 07-17-2022 ambulatory David Caputo Other [employer] Other Start: 07-17-2022 Office outpatient vi sit 25 minutes David Caputo [facility] Start: 07-11-2022 End: 07-12-[address] CORY [...] 06-13-2022 Rx Renewal David Caputo Work Phone: [facility] 250 DO Work Phone: Start: 06-06-2022 End: 06-06-2022 ambulatory DAVID CAPUTO Facility:[facility] Start: 06-06-2022 End: 06-06-2022 Nursing evaluation [...] 05-13-2022 Adult health examination David Caputo Other [facility] [employer] Other Start: 05-12-2022 End: 05-13-[address] [...] encounter procedure Zahra Buitrago MD Work Phone: [facility] Start: 04-09-2022 Telephone encounter Zahra foster MD Work Phone: Hematology/Oncology Comment on above: Lab Orders Start: 03-27-2022 Refill Imelda walker [facility] Work Phone: Hematology/Oncology Comment on above: Refill [...] End: 03-13-2022 Patient encounter procedure 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 250 DO Work Phone: Start: 03-06-2022 Rx Renewal David Meza Harshal Work Phone: [facility] 250 DO Work Phone: Start: 02-28-2022 Social Work Mackenzie Gutiérrez DANCING INSTRUCTOR Hematolo gy/Oncology Start: 02-17-2022 Telephone encounter Cassandra [...] 01-16-2022 End: 01-16-2022 ambulatory Nate Hanson Other [employer] Other Start: 01-16-2022 Office outpatient vi sit [...] encounter procedure Zahra Buitrago MD Work Phone: [facility] Start: 12-03-2021 Chart abstracting Zahra zapata MD Work Phone: Hematology/Oncology Start: 11-26-2021 End: 11-27-[address] DAVID CAPUTO Facility:[facility] Start: 11-12-2021 End: 11-13-[address] DAVID CAPUTO Facility:[facility] Start: 10-10-2021 End: 10-11-[address] DAVID CAPUTO Facility:[facility] Start: 07-02-2021 Rx Renewal Irving Garcia n DO Work Phone: [facility] 250 DO Work Phone: Start: 09-30-2017 End: 10-09-2017 Evaluation and management of inpatient MICHAEL TOVAR [facility] Start: 09-28-2017 Ambulatory MAU DUFFY Facility: [id number] Start: 09-24-2017 Ambulatory MICHAEL TOVAR [facility] Start: 08-14-2017 End: 09-01-2017 Evaluation and management of inpatient MICHAEL CEDILLO) [facility] Procedures Date Procedure Procedure Detail Performing Clinician Start: 10-10-[address] DAVID CAPUTO Comment on above: Performed By: #### PSASC #### [facility] [address] [place] [address] Dr. Mel Barrientos Start: 01-26-2020 Total colonoscopy [...] SCRE ENING DISCUSSION PROSTATE CANCER SCREENING DISCUSSION [facility] Start: 03-11-2026 Diabetes Screening Diabetes Screenin g [facility] Start: 02-19-2026 DIABETES SCREEN DIABETES SCREEN [facility] Start: 11-28-2025 DIABETES SCREEN DIABETES SCREEN [facility] Start: 10-03-2025 DIABETES SCREEN DIABETES SCREEN [facility] Start: 08-08-2025 DIABETES SCREEN DIABETES SCREEN [facility] Start: 07-03-2025 DIABETES SCREEN DIABETES SCREEN [facility] Start: 06-06-2025 DIABETES SCREEN DIABETES SCREEN [facility] Start: 05-08-2025 DIABETES SCREEN DIABETES SCREEN [facility] Start: 04-03-2025 DIABETES SCREEN DIABETES SCREEN [facility] Start: 03-06-2025 DIABETES SCREEN DIABETES SCREEN [facility] Start: 02-06-2025 DIABETES SCREEN DIABETES SCREEN [facility] Start: 09-17-2023 FUV, Provider: Irving Abreu, Status: Pen, Time: 10:50 AM FUV, Provider: Irving Abreu, Status: Cosme, Time: 10:[address] [facility] 250 DO Work Phone: Start: 06-29-2023 End: 08-29-2023 Cancer Ag 19-9 [Units/volume] in Serum or Plasma CA 19-9 BLD Lab Routine Cancer of ampulla of Vater (HCC) Anemia due to vitamin B12 deficiency, unspecified B12 deficiency type Severe protein-calorie malnutrition (HCC) Expected: 06/29/2023 (Approximate), Expires: 08/29/2023 [facility] Work Phone: Comment on above: Expected: 06/29/2023 (Approximate), Expires: 08/29/2023 Start: 06-29-2023 End: 03-16-2024 CBC W Auto Differential panel - Blood CBC + DIFF Lab Routine Cancer of ampulla of Vater (HCC) Anemia due to vitamin B12 deficiency, unspecified B12 deficiency type Severe protein-calorie malnutrition (HCC) Expected: 06/29/2023 (Approximate), Expires: 03/16/2024 [facility] Work Phone: Comment on above: Expected: 06/29/2023 (Approximate), Expires: 03/16/2024 Start: 06-29-2023 End: 03-16-2024 Cobalamin (Vitamin B12) [Mass/volume] in Serum or Plasma VITAMIN B12 BLOOD Lab Routine Cancer of ampulla of Vater (HCC) Anemia due to vitamin B12 deficiency, unspecified B12 deficiency type Severe protein-calorie malnutrition (HCC) Expected: 06/29/2023 (Approximate), Expires: 03/16/2024 [facility] Work Phone: Comment on above: Expected: 06/29/2023 (Approximate), Expires: 03/16/2024 Start: 06-29-2023 End: 03-16-2024 Comprehensive metabolic 2000 panel - Serum or Plasma COMP METABOLIC PANEL Lab Routine Cancer of ampulla of Vater (HCC) Anemia due to vitamin B12 deficiency, unspecified B12 deficiency type Severe protein-calorie malnutrition (HCC) Expected: 06/29/2023 (Approximate), Expires: 03/16/2024 [facility] Work Phone: Comment on above: Expected: 06/29/2023 (Approximate), Expires: 03/16/2024 Start: 06-29-2023 End: 04-14-2024 Ct abdomen & pelvis w/contrast material CT ABD/PEL W IVCON Radiology Routine Cancer of ampulla of Vater (HCC) Anemia due to vitamin B12 deficiency, unspecified B12 deficiency type Severe protein-calorie malnutrition (HCC) Expected: 06/29/2023 (Approximate), Expires: 04/14/2024 [facility] Work Phone: Comment on above: Expected: 06/29/2023 (Approximate), Expires: 04/14/2024 Start: 06-29-2023 End: 04-14-2024 CT CHEST W IVCON CT CHEST W IVCON Radiology Routine Cancer of ampulla of Vater (HCC) Anemia due to vitamin B12 deficiency, unspecified B12 deficiency type Severe protein-calorie malnutrition (HCC) Expected: 06/29/2023 (Approximate), Expires: 04/14/2024 [facility] Work Phone: Comment on above: Expected: 06/29/2023 (Approximate), Expires: 04/14/2024 Start: 06-29-2023 End: 03-16-2024 Ferritin [Mass/volume] in Serum or Plasma FERRITIN BLD Lab Routine Cancer of ampulla of Vater (HCC) Anemia due to vitamin B12 deficiency, unspecified B12 deficiency type Severe protein-calorie malnutrition (HCC) Expected: 06/29/2023 (Approximate), Expires: 03/16/2024 [facility] Work Phone: Comment on above: Expected: 06/29/2023 (Approximate), Expires: 03/16/2024 Start: 06-29-2023 End: 03-16-2024 Folate [Mass/volume] in Serum or Plasma FOLATE SERUM Lab Routine Cancer of ampulla of Vater (HCC) Anemia due to vitamin B12 deficiency, unspecified B12 deficiency type Severe protein-calorie malnutrition (HCC) Expected: 06/29/2023 (Approximate), Expires: 03/16/2024 [facility] Work Phone: Comment on above: Expected: 06/29/2023 (Approximate), Expires: 03/16/2024 Start: 06-29-2023 End: 03-16-2024 Iron and Iron binding capacity panel - Serum or Plasma IRON + TIBC Lab Routine Cancer of ampulla of Vater (HCC) Anemia due to vitamin B12 deficiency, unspecified B12 deficiency type Severe protein-calorie malnutrition (HCC) Expected: 06/29/2023 (Approximate), Expires: 03/16/2024 [facility] Work Phone: Comment on above: Expected: 06/29/2023 (Approximate), Expires: 03/16/2024 Start: 03-11-2023 End: 05-11-2023 Cancer Ag 19-9 [Units/volume] in Serum or Plasma CA 19-9 BLD Lab Routine Cancer of ampulla of Vater (HCC) Expected: 03/11/2023 (Approximate), Expires: 05/11/2023 [facility] Work Phone: Comment on above: Expected: 03/11/2023 (Approximate), Expires: 05/11/2023 Start: 03-11-2023 End: 03-05-2024 CBC W Auto Differential panel - Blood CBC + DIFF Lab Routine Cancer of ampulla of Vater (HCC) Expected: 03/11/2023 (Approximate), Expires: 03/05/2024 [facility] Work Phone: Comment on above: Expected: 03/11/2023 (Approximate), Expires: 03/05/2024 Start: 03-11-2023 End: 03-05-2024 Cobalamin (Vitamin B12) [Mass/volume] in Serum or Plasma VITAMIN B12 BLOOD Lab Routine Cancer of ampulla of Vater (HCC) Expected: 03/11/2023 (Approximate), Expires: 03/05/2024 [facility] Work Phone: Comment on above: Expected: 03/11/2023 (Approximate), Expires: 03/05/2024 Start: 03-11-2023 End: 03-05-2024 Comprehensive metabolic 2000 panel - Serum or Plasma COMP METABOLIC PANEL Lab Routine Cancer of ampulla of Vater (HCC) Expected: 03/11/2023 (Approximate), Expires: 03/05/2024 [facility] Work Phone: Comment on above: Expected: 03/11/2023 (Approximate), Expires: 03/05/2024 Start: 03-11-2023 End: 03-05-2024 Ferritin [Mass/volume] in Serum or Plasma FERRITIN BLD Lab Routine Cancer of ampulla of Vater (HCC) Expected: 03/11/2023 (Approximate), Expires: 03/05/2024 [facility] Work Phone: Comment on above: Expected: 03/11/2023 (Approximate), Expires: 03/05/2024 Start: 03-11-2023 End: 03-05-2024 Folate [Mass/volume] in Serum or Plasma FOLATE SERUM Lab Routine Cancer of ampulla of Vater (HCC) Expected: 03/11/2023 (Approximate), Expires: 03/05/2024 [facility] Work Phone: Comment on above: Expected: 03/11/2023 (Approximate), Expires: 03/05/2024 Start: 03-11-2023 End: 03-05-2024 Iron and Iron binding capacity panel - Serum or Plasma IRON + TIBC Lab Routine Cancer of ampulla of Vater (HCC) Expected: 03/11/2023 (Approximate), Expires: 03/05/2024 [facility] Work Phone: Comment on above: Expected: 03/11/2023 (Approximate), Expires: 03/05/2024 Start: 03-05-2023 End: 03-20-[address] attenuation skull base mid-thigh NM PET/CT SKULL-THIGH INITIAL Radiology Routine Cancer of ampulla of Vater (HCC) Expected: 03/05/2023 (Approximate), Expires: 03/20/2024 [facility] Work Phone: Comment on above: Expected: 03/05/2023 (Approximate), Expires: 03/20/2024 Start: 02-27-2023 Covid-19 Vaccine () Covid-19 Vaccine () [facility] Start: 02-27-2023 Influenza vaccination C [facility] Start: 02-19-2023 End: 02-18-2024 CBC W Auto Differential panel - Blood CBC + DIFF Lab Routine Anemia due to vitamin B12 deficiency, unspecified B12 deficiency type Expected: 02/19/2023 (Approximate), Expires: 02/18/2024 [facility] Work Phone: Comment on above: Expected: 02/19/2023 (Approximate), Expires: 02/18/2024 Start: 02-19-2023 End: 02-18-2024 Cobalamin (Vitamin B12) [Mass/volume] in Serum or Plasma VITAMIN B12 BLOOD Lab Routine Anemia due to vitamin B12 deficiency, unspecified B12 deficiency type Expected: 02/19/2023 (Approximate), Expires: 02/18/2024 [facility] Work Phone: Comment on above: Expected: 02/19/2023 (Approximate), Expires: 02/18/2024 Start: 02-19-2023 End: 02-18-2024 Comprehensive metabolic 2000 panel - Serum or Plasma COMP METABOLIC PANEL Lab Routine Anemia due to vitamin B12 deficiency, unspecified B12 deficiency type Expected: 02/19/2023 (Approximate), Expires: 02/18/2024 [facility] Work Phone: Comment on above: Expected: 02/19/2023 (Approximate), Expires: 02/18/2024 Start: 02-19-2023 End: 02-18-2024 Ferritin [Mass/volume] in Serum or Plasma FERRITIN BLD Lab Routine Anemia due to vitamin B12 deficiency, unspecified B12 deficiency type Expected: 02/19/2023 (Approximate), Expires: 02/18/2024 [facility] Work Phone: Comment on above: Expected: 02/19/2023 (Approximate), Expires: 02/18/2024 Start: 02-19-2023 End: 02-18-2024 Folate [Mass/volume] in Serum or Plasma FOLATE SERUM Lab Routine Anemia due to vitamin B12 deficiency, unspecified B12 deficiency type Expected: 02/19/2023 (Approximate), Expires: 02/18/2024 [facility] Work Phone: Comment on above: Expected: 02/19/2023 (Approximate), Expires: 02/18/2024 Start: 02-19-2023 End: 02-18-2024 Iron and Iron binding capacity panel - Serum or Plasma IRON + TIBC Lab Routine Anemia due to vitamin B12 deficiency, unspecified B12 deficiency type Expected: 02/19/2023 (Approximate), Expires: 02/18/2024 [facility] Work Phone: Comment on above: Expected: 02/19/2023 (Approximate), Expires: 02/18/2024 Start: 01-27-2023 Insulin C-peptide measurement [facility] Start: 01-07-2023 FUV, Provider: Irving Abreu, Status: Pen, Time: 10:20 AM FUV, Provider: Irving Abreu, Status: Pen, Time: 10:20 AM -[facility] 250 DO Work Phone: Start: 08-14-2022 Pneumococcal Vaccine : 65+ (3 - PPSV23 or PCV20) Pneumococcal Vaccine: 65+ (3 - PPSV23 or PCV20) [facility] Start: 08-14-2022 PNEUMOCOCCAL: 65+ (#3) PNEUMOCOCCAL: 65+ (#3) [facility] Start: 08-14-2022 PNEUMOCOCCAL: 65+ (3 - PPSV23 if available, else PCV20) PNEUMOCOCCAL: 65+ (3 - PPSV23 if available, else PCV20) [facility] Start: 08-14-2022 PNEUMOCOCCAL: 65+ (3 - PPSV23 or PCV20) PNEUMOCOCCAL: 65+ (3 - PPSV23 or PCV20) [facility] Start: 07-04-2022 End: 09-03-2022 Cancer Ag 19-9 [Units/volume] in Serum or Plasma CA 19-9 BLD Lab Routine Cancer of ampulla of Vater (HCC) Expected: 07/04/2022 (Approximate), Expires: 09/03/2022 [facility] Work Phone: Comment on above: Expected: 07/04/2022 (Approximate), Expires: 09/03/2022 Start: 07-04-2022 End: 06-06-2023 CBC W Auto Differential panel - Blood CBC + DIFF Lab Routine Anemia due to vitamin B12 deficiency, unspecified B12 deficiency type Expected: 07/04/2022 (Approximate), Expires: 06/06/2023 [facility] Work Phone: Comment on above: Expected: 07/04/2022 (Approximate), Expires: 06/06/2023 Start: 07-04-2022 End: 06-06-2023 Cobalamin (Vitamin B12) [Mass/volume] in Serum or Plasma VITAMIN B12 BLOOD Lab Routine Anemia due to vitamin B12 deficiency, unspecified B12 deficiency type Expected: 07/04/2022 (Approximate), Expires: 06/06/2023 [facility] Work Phone: Comment on above: Expected: 07/04/2022 (Approximate), Expires: 06/06/2023 Start: 07-04-2022 End: 06-06-2023 Comprehensive metabolic 2000 panel - Serum or Plasma COMP METABOLIC PANEL Lab Routine Anemia due to vitamin B12 deficiency, unspecified B12 deficiency type Expected: 07/04/2022 (Approximate), Expires: 06/06/2023 [facility] Work Phone: Comment on above: Expected: 07/04/2022 (Approximate), Expires: 06/06/2023 Start: 07-04-2022 End: 07-06-2023 Ct abdomen & pelvis w/contrast material CT ABD/PEL W IVCON Radiology Routine Interstitial pulmonary disease (HCC) Cancer of ampulla of Vater (HCC) Anemia due to vitamin B12 deficiency, unspecified B12 deficiency type Expected: 07/04/2022 (Approximate), Expires: 07/06/2023 [facility] Work Phone: Comment on above: Expected: 07/04/2022 (Approximate), Expires: 07/06/2023 Start: 07-04-2022 End: 07-06-2023 CT CHEST W IVCON CT CHEST W IVCON Radiology Routine Interstitial pulmonary disease (HCC) Cancer of ampulla of Vater (HCC) Anemia due to vitamin B12 deficiency, unspecified B12 deficiency type Expected: 07/04/2022 (Approximate), Expires: 07/06/2023 [facility] Work Phone: Comment on above: Expected: 07/04/2022 (Approximate), Expires: 07/06/2023 Start: 07-04-2022 DIABETES SCREEN DIABETES SCREEN [facility] Start: 07-04-2022 End: 06-06-2023 Ferritin [Mass/volume] in Serum or Plasma FERRITIN BLD Lab Routine Anemia due to vitamin B12 deficiency, unspecified B12 deficiency type Expected: 07/04/2022 (Approximate), Expires: 06/06/2023 [facility] Work Phone: Comment on above: Expected: 07/04/2022 (Approximate), Expires: 06/06/2023 Start: 07-04-2022 End: 06-06-2023 Folate [Mass/volume] in Serum or Plasma FOLATE SERUM Lab Routine Anemia due to vitamin B12 deficiency, unspecified B12 deficiency type Expected: 07/04/2022 (Approximate), Expires: 06/06/2023 [facility] Work Phone: Comment on above: Expected: 07/04/2022 (Approximate), Expires: 06/06/2023 Start: 07-04-2022 End: 06-06-2023 Iron and Iron binding capacity panel - Serum or Plasma IRON + TIBC Lab Routine Anemia due to vitamin B12 deficiency, unspecified B12 deficiency type Expected: 07/04/2022 (Approximate), Expires: 06/06/2023 [facility] Work Phone: Comment on above: Expected: 07/04/2022 (Approximate), Expires: 06/06/2023 Start: 06-29-2022 ADVANCE DIRECTIVE DISCUSSION ADVANCE DIRECTIVE DISCUSSION [facility] Start: 06-29-2022 DEPRESSION ASSESSMENT DEPRESSION ASS ESSMENT [facility] Start: 2022 ADVANCE DIRECTIVE DISCUSSION ADVANCE DIRECTIVE DISCUSSION [facility] Start: 05-08-2022 End: 04-10-2023 CBC W Auto Differential panel - Blood CBC + DIFF Lab Routine Iron deficiency anemia, unspecified iron deficiency anemia type Anemia due to vitamin B12 deficiency, unspecified B12 deficiency type Expected: 05/08/2022 (Approximate), Expires: 04/10/2023 [facility] Work Phone: Comment on above: Expected: 05/08/2022 (Approximate), Expires: 04/10/2023 Start: 05-08-2022 End: 04-10-2023 Cobalamin (Vitamin B12) [Mass/volume] in Serum or Plasma VITAMIN B12 BLOOD Lab Routine Iron deficiency anemia, unspecified iron deficiency anemia type Anemia due to vitamin B12 deficiency, unspecified B12 deficiency type Expected: 05/08/2022 (Approximate), Expires: 04/10/2023 [facility] Work Phone: Comment on above: Expected: 05/08/2022 (Approximate), Expires: 04/10/2023 Start: 05-08-2022 End: 04-10-2023 Comprehensive metabolic 2000 panel - Serum or Plasma COMP METABOLIC PANEL Lab Routine Iron deficiency anemia, unspecified iron deficiency anemia type Anemia due to vitamin B12 deficiency, unspecified B12 deficiency type Expected: 05/08/2022 (Approximate), Expires: 04/10/2023 [facility] Work Phone: Comment on above: Expected: 05/08/2022 (Approximate), Expires: 04/10/2023 Start: 05-08-2022 End: 04-10-2023 Ferritin [Mass/volume] in Serum or Plasma FERRITIN BLD Lab Routine Iron deficiency anemia, unspecified iron deficiency anemia type Anemia due to vitamin B12 deficiency, unspecified B12 deficiency type Expected: 05/08/2022 (Approximate), Expires: 04/10/2023 [facility] Work Phone: Comment on above: Expected: 05/08/2022 (Approximate), Expires: 04/10/2023 Start: 05-08-2022 End: 04-10-2023 Folate [Mass/volume] in Serum or Plasma FOLATE SERUM Lab Routine Iron deficiency anemia, unspecified iron deficiency anemia type Anemia due to vitamin B12 deficiency, unspecified B12 deficiency type Expected: 05/08/2022 (Approximate), Expires: 04/10/2023 [facility] Work Phone: Comment on above: Expected: 05/08/2022 (Approximate), Expires: 04/10/2023 Start: 05-08-2022 End: 04-10-2023 Iron and Iron binding capacity panel - Serum or Plasma IRON + TIBC Lab Routine Iron deficiency anemia, unspecified iron deficiency anemia type Anemia due to vitamin B12 deficiency, unspecified B12 deficiency type Expected: 05/08/2022 (Approximate), Expires: 04/10/2023 [facility] Work Phone: Comment on above: Expected: 05/08/2022 (Approximate), Expires: 04/10/2023 Start: 04-10-2022 End: 04-10-2023 CBC W Auto Differential panel - Blood CBC + DIFF Lab Routine Iron deficiency anemia, unspecified iron deficiency anemia type Anemia due to vitamin B12 deficiency, unspecified B12 deficiency type Macrocytosis Expected: 04/10/2022, Expires: 04/10/2023 [facility] Work Phone: Comment on above: Expected: 04/10/2022 , Expires: 04/10/2023 Start: 04-10-2022 End: 04-10-2023 Cobalamin (Vitamin B12) [Mass/volume] in Serum or Plasma VITAMIN B12 BLOOD Lab Routine Iron deficiency anemia, unspecified iron deficiency anemia type Anemia due to vitamin B12 deficiency, unspecified B12 deficiency type Macrocytosis Expected: 04/10/2022, Expires: 04/10/2023 [facility] Work Phone: Comment on above: Expected: 04/10/2022 , Expires: 04/10/2023 Start: 04-10-2022 End: 04-10-2023 Comprehensive metabolic 2000 panel - Serum or Plasma COMP METABOLIC PANEL Lab Routine Iron deficiency anemia, unspecified iron deficiency anemia type Anemia due to vitamin B12 deficiency, unspecified B12 deficiency type Macrocytosis Expected: 04/10/2022, Expires: 04/10/2023 [facility] Work Phone: Comment on above: Expected: 04/10/2022 , Expires: 04/10/2023 Start: 04-10-2022 End: 04-10-2023 Ferritin [Mass/volume] in Serum or Plasma FERRITIN BLD Lab Routine Iron deficiency anemia, unspecified iron deficiency anemia type Anemia due to vitamin B12 deficiency, unspecified B12 deficiency type Macrocytosis Expected: 04/10/2022, Expires: 04/10/2023 [facility] Work Phone: Comment on above: Expected: 04/10/2022 , Expires: 04/10/2023 Start: 04-10-2022 End: 04-10-2023 Folate [Mass/volume] in Serum or Plasma FOLATE SERUM Lab Routine Iron deficiency anemia, unspecified iron deficiency anemia type Anemia due to vitamin B12 deficiency, unspecified B12 deficiency type Macrocytosis Expected: 04/10/2022, Expires: 04/10/2023 [facility] Work Phone: Comment on above: Expected: 04/10/2022 , Expires: 04/10/2023 Start: 04-10-2022 End: 06-10-2022 Haptoglobin [Mass/volume] in Serum or Plasma HAPTOGLOBIN BLD Lab Routine Iron deficiency anemia, unspecified iron deficiency anemia type Anemia due to vitamin B12 deficiency, unspecified B12 deficiency type Macrocytosis Expected: 04/10/2022, Expires: 06/10/2022 [facility] Work Phone: Comment on above: Expected: 04/10/2022 , Expires: 06/10/2022 Start: 04-10-2022 End: 04-10-2023 Iron and Iron binding capacity panel - Serum or Plasma IRON + TIBC Lab Routine Iron deficiency anemia, unspecified iron deficiency anemia type Anemia due to vitamin B12 deficiency, unspecified B12 deficiency type Macrocytosis Expected: 04/10/2022, Expires: 04/10/2023 [facility] Work Phone: Comment on above: Expected: 04/10/2022 , Expires: 04/10/2023 Start: 04-10-2022 End: 06-10-2022 Lactate dehydrogenase [Enzymatic activity/volume] in Serum or Plasma LD LACTATE DEHYDRO Lab Routine Iron deficiency anemia, unspecified iron deficiency anemia type Anemia due to vitamin B12 deficiency, unspecified B12 deficiency type Macrocytosis Expected: 04/10/2022, Expires: 06/10/2022 [facility] Work Phone: Comment on above: Expected: 04/10/2022 , Expires: 06/10/2022 Start: 04-10-2022 End: 06-10-2022 RETIC COUNT RETIC COUNT Lab Routine Iron deficiency anemia, unspecified iron deficiency anemia type Anemia due to vitamin B12 deficiency, unspecified B12 deficiency type Macrocytosis Expected: 04/10/2022, Expires: 06/10/2022 [facility] Work Phone: Comment on above: Expected: 04/10/2022 , Expires: 06/10/2022 Start: 02-27-2022 Influenza vaccination C [facility] Start: 02-04-2022 End: 04-06-2022 Cancer Ag 19-9 [Units/volume] in Serum or Plasma CA 19-9 BLD Lab Routine Iron deficiency anemia, unspecified iron deficiency anemia type 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) Expected: 02/04/2022 (Approximate), Expires: 04/06/2022 [facility] Work Phone: Comment on above: Expected: 02/04/2022 (Approximate), Expires: 04/06/2022 Start: 02-04-2022 End: 12-05-2022 Carcinoembryonic Ag [Mass/volume] in Serum or Plasma CEA BLD Lab Routine Iron deficiency anemia, unspecified iron deficiency anemia type 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) Malignant neoplasm of body of pancreas (HCC) Expected: 02/04/2022 (Approximate), Expires: 12/05/2022 [facility] Work Phone: Comment on above: Expected: 02/04/2022 (Approximate), Expires: 12/05/2022 Start: 02-04-2022 End: 12-05-2022 CBC W Auto Differential panel - Blood CBC + DIFF Lab Routine Iron deficiency anemia, unspecified iron deficiency anemia type 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) Expected: 02/04/2022 (Approximate), Expires: 12/05/2022 [facility] Work Phone: Comment on above: Expected: 02/04/2022 (Approximate), Expires: 12/05/2022 Start: 02-04-2022 End: 12-05-2022 Comprehensive metabolic 2000 panel - Serum or Plasma COMP METABOLIC PANEL Lab Routine Iron deficiency anemia, unspecified iron deficiency anemia type 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) Expected: 02/04/2022 (Approximate), Expires: 12/05/2022 [facility] Work Phone: Comment on above: Expected: 02/04/2022 (Approximate), Expires: 12/05/2022 Start: 02-04-2022 End: 01-04-2023 Ct abdomen & pelvis w/contrast material CT ABD/PEL W IVCON Radiology Routine Iron deficiency anemia, unspecified iron deficiency anemia type 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) Expected: 02/04/2022 (Approximate), Expires: 01/04/2023 [facility] Work Phone: Comment on above: Expected: 02/04/2022 (Approximate), Expires: 01/04/2023 Start: 02-04-2022 End: 01-04-2023 Ct thorax w/contrast material CT CHEST W IVCON Radiology Routine Iron deficiency anemia, unspecified iron deficiency anemia type 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) Expected: 02/04/2022 (Approximate), Expires: 01/04/2023 [facility] Work Phone: Comment on above: Expected: 02/04/2022 (Approximate), Expires: 01/04/2023 Start: 01-09-2022 FUV, Provider: Irving Abreu, Status: Pen, Time: 11:15 AM FUV, Provider: Irving Abreu, Status: Pen, Time: 11:15 AM [place] [id number] DO Work Phone: Start: 11-14-2021 COVID-19 VACCINE (4 - Booster for Pfizer series) COVID-19 VACCINE (4 - Booster for Pfizer series) [facility] Start: 09-11-2021 COVID-19 VACCINE (4 - Booster for Pfizer series) COVID-19 VACCINE (4 - Booster for Pfizer series) [facility] Start: 09-11-2021 COVID-19 VACCINE (4 - Pfizer series) COVID-19 VACCINE (4 - Pfizer series) [facility] Start: 06-29-2021 DEPRESSION ASSESSMENT DEPRESSION ASS ESSMENT [facility] Start: 12-11-2020 Adult depression scr eening assessment DEPRESSION SCREENING [facility] Start: 08-14-2018 PNEUMOCOCCAL (2 - PCV) PNEUMOCOCCAL (2 - PCV) [facility] Start: 2012 PROSTATE CANCER SCRE ENING DISCUSSION PROSTATE CANCER SCREENING DISCUSSION [facility] Start: 2007 SHINGRIX VACCINE (1 of 2) URBINA GRIX VACCINE (1 of 2) [facility] Start: 2002 COLOGUARD (FIT-DNA) COLOGUARD (FIT-D NA) [facility] Start: 2002 Colonoscopy COLONOSCOPY [facility] Start: 2002 COLORECTAL CANCER SCREENING COLORECTAL CANCER SCREENING [facility] Start: [address] COLONOGRAPHY [facility] Start: 2002 FECAL OCCULT BLOOD FECAL OCCULT BLOO D [facility] Start: 2002 SIGMOIDOSCOPY SIGMOIDOSCOPY [facility] Start: 1992 Lipid 1996 panel - S brandi or Plasma Lipid Screening [facility] Start: 1992 LIPID SCREEN LIPID SCREEN [facility] Start: 1976 SHINGRIX VACCINE (1 of 2) URBINA GRIX VACCINE (1 of 2) [facility] Start: 1976 Urine microalbumin profile [facility] Start: 1975 HIV SCREENING HIV SCREENING [facility] Start: 1962 COVID-19 VACCINE (#1) COVID-19 VACCI NE (#1) [facility] Start: 1957 ABDOMINAL AORTIC ANE URYSM SCREENING ABDOMINAL AORTIC ANEURYSM SCREENING [facility] End: 03-10-2024 Cancer Ag 19-9 [Units/volume] in Serum or Plasma CA 19-9 BLD Lab Routine Cancer of ampulla of Vater (HCC) Anemia due to vitamin B12 deficiency, unspecified B12 deficiency type Iron deficiency anemia, unspecified iron deficiency anemia type Every 3 weeks for 18 Occurrences starting 03/11/2023 until 03/10/2024 [facility] Work Phone: Comment on above: Every 3 weeks for 18 Occurrences starting 03/11/2023 until 03/10/2024 End: 02-13-2023 CBC W Auto Differential panel - Blood CBC + DIFF Lab Routine Iron deficiency anemia, unspecified iron deficiency anemia type Macrocytosis Every other week for 20 Occurrences starting 02/13/2022 until 02/13/2023 [facility] Work Phone: Comment on above: Every other week for 20 Occurrences starting 02/13/2022 until 02/13/2023 End: 03-10-2024 CBC W Auto Differential panel - Blood CBC + DIFF Lab Routine Cancer of ampulla of Vater (HCC) Anemia due to vitamin B12 deficiency, unspecified B12 deficiency type Iron deficiency anemia, unspecified iron deficiency anemia type Every 3 weeks for 18 Occurrences starting 03/11/2023 until 03/10/2024 [facility] Work Phone: Comment on above: Every 3 weeks for 18 Occurrences starting 03/11/2023 until 03/10/2024 End: 02-13-2023 Cobalamin (Vitamin B12) [Mass/volume] in Serum or Plasma VITAMIN B12 BLOOD Lab Routine Iron deficiency anemia, unspecified iron deficiency anemia type Macrocytosis Every other week for 20 Occurrences starting 02/13/2022 until 02/13/2023 [facility] Work Phone: Comment on above: Every other [...] for 18 Occurrences starting 03/11/2023 until 03/10/2024 [facility] Work Phone: Comment on above: Every 3 weeks for 18 Occurrences starting 03/11/2023 until 03/10/2024 End: 02-13-2023 Comprehensive metabolic 2000 panel - Serum or Plasma COMP METABOLIC PANEL Lab Routine Iron deficiency anemia, unspecified iron deficiency anemia type Macrocytosis Every other week for 20 Occurrences starting 02/13/2022 until 02/13/2023 [facility] Work Phone: Comment on above: Every other [...] for 18 Occurrences starting 03/11/2023 until 03/10/2024 [facility] Work Phone: Comment on above: Every 3 weeks for 18 Occurrences starting 03/11/2023 until 03/10/2024 End: 02-13-2023 Ferritin [Mass/volume] in Serum or Plasma FERRITIN BLD Lab Routine Iron deficiency anemia, unspecified iron deficiency anemia type Macrocytosis Every other week for 20 Occurrences starting 02/13/2022 until 02/13/2023 [facility] Work Phone: Comment on above: Every other week for 20 Occurrences starting 02/13/2022 until 02/13/2023 End: 03-10-2024 Ferritin [Mass/volume] in Serum or Plasma FERRITIN BLD Lab Routine Cancer of ampulla of Vater (HCC) Anemia due to vitamin B12 deficiency, unspecified B12 deficiency type Iron deficiency anemia, unspecified iron deficiency anemia type Every 3 weeks for 18 Occurrences starting 03/11/2023 until 03/10/2024 [facility] Work Phone: Comment on above: Every 3 weeks for 18 Occurrences starting 03/11/2023 until 03/10/2024 End: 02-13-2023 Folate [Mass/volume] in Serum or Plasma FOLATE SERUM Lab Routine Iron deficiency anemia, unspecified iron deficiency anemia type Macrocytosis Every other week for 20 Occurrences starting 02/13/2022 until 02/13/2023 [facility] Work Phone: Comment on above: Every other week for 20 Occurrences starting 02/13/2022 until 02/13/2023 End: 03-10-2024 Folate [Mass/volume] in Serum or Plasma FOLATE SERUM Lab Routine Cancer of ampulla of Vater (HCC) Anemia due to vitamin B12 deficiency, unspecified B12 deficiency type Iron deficiency anemia, unspecified iron deficiency anemia type Every 3 weeks for 18 Occurrences starting 03/11/2023 until 03/10/2024 [facility] Work Phone: Comment on above: Every 3 weeks for 18 Occurrences starting 03/11/2023 until 03/10/2024 End: 02-13-2023 Iron and Iron binding capacity panel - Serum or Plasma IRON + TIBC Lab Routine Iron deficiency anemia, unspecified iron deficiency anemia type Macrocytosis Every other week for 20 Occurrences starting 02/13/2022 until 02/13/2023 [facility] Work Phone: Comment on above: Every other [...] for 18 Occurrences starting 03/11/2023 until 03/10/2024 [facility] Work Phone: Comment on above: Every 3 weeks for 18 Occurrences starting 03/11/2023 until 03/10/2024 [facility] Immunizations Immunization Date Immunization Notes Care Provider Srinivas [facility] 06-04-2023 influenza, high dose seasonal, preservative-free David Caputo Other [employer] Other 04-01-2022 Seasonal trivalent influenza vaccine, adjuvanted, preservative free Chair Phelan Work Phone: [facility] 04-01-2022 influenza virus vaccine, unspecified formulation Zahra Buitrago MD Work Phone: [facility] 07-17-2021 COVID-19 vaccine, ag e 12+ yr ([employer]) Zahra Buitrago MD Work Phone: [facility] 04-04-2021 AS03 adjuvant Zhane Work Phone: [facility] 04-04-2021 influenza virus vaccine, split virus (incl. purified surface antigen) David Caputo Other [facility] Other 04-04-2021 Seasonal trivalent influenza vaccine, adjuvanted, preservative free Zahra Buitrago MD Work Phone: [facility] 10-24-2020 COVID-19 vaccine, ag e 12+ yr (P[employer]ZER-[employer]IONTECH - PURPLE TOP) Zahra Buitrago MD Work Phone: [facility] 10-03-2020 COVID-19 vaccine, ag e 12+ yr (PFIZER-[employer]IONTECH - PURPLE TOP) Zahra Buitrago MD Work Phone: [facility] 03-29-2020 influenza nasal, unspecified formulation Zhane Work Phone: [facility] 03-29-2020 influenza virus vaccine, unspecified formulation David Caputo Work Phone: [place] [address] DO Work Phone: 03-29-2020 influenza, seasonal, injectable Zahra Buitrago MD Work Phone: [facility] 03-22-2020 influenza virus vaccine, split virus (incl. purified surface antigen) David Caputo Other [facility] Other 03-22-2020 influenza, injectabl e, quadrivalent, contains preservative Zahra Buitrago MD Work Phone: [facility] 05-02-2019 influenza, injectabl e, quadrivalent, contains preservative Zahra Buitrago MD Work Phone: [facility] 03-29-2019 influenza nasal, unspecified formulation [facility] Work Phone: [facility] 03-29-2019 influenza virus vaccine, unspecified formulation David Caputo Work Phone: [place] [address] DO Work Phone: 03-29-2019 influenza, seasonal, injectable Zahra Buitrago MD Work Phone: [facility] 03-29-2018 influenza nasal, unspecified formulation Chair Hartusky Work Phone: [facility] 03-29-2018 influenza virus vaccine, unspecified formulation David Caputo Work Phone: [place] [address] DO Work Phone: 02-14-2018 influenza, injectabl e, quadrivalent, preservative free Zahra Buitrago MD Work Phone: [facility] 09-02-2017 tuberculin skin test ; unspecified formulation Dr. Adriane Espitia [facility] 09-01-2017 influenza, high-dose seasonal, quadrivalent, 0.7mL dose, preservative free Dr. Adriane Espitia [facility] 09-01-[address] Avilez Espitia [facility] 08-14-2017 pneumococcal polysaccharide vaccine, 23 valent Zahra Buitrago MD Work Phone: [facility] Work Phone: 04-22-2017 influenza virus vaccine, split virus (incl. purified surface antigen) David Caputo Other [employer] [facility] [employer] Other 04-13-2017 influenza, injectabl e, quadrivalent, contains preservative Zahra Buitrago MD Work Phone: [facility] 03-29-2017 influenza nasal, unspecified formulation Chair Phelan Work Phone: [facility] 03-29-2017 influenza virus vaccine, unspecified formulation David Caputo Work Phone: [place] [address] DO Work Phone: 03-03-2017 influenza, injectabl e, quadrivalent, preservative free Zahra Buitrago MD Work Phone: [facility] 07-30-2016 pneumococcal conjuga te vaccine, 13 valent David Caputo Work Phone: [facility] 04-29-2011 influenza nasal, unspecified formulation Chair Zhane Work Phone: [facility] 04-29-2011 influenza virus vaccine, unspecified formulation David Caputo Work Phone: [facility] [address] DO Work Phone: Payers Date Payer Category Payer Unknown [id number] 2023 Self-pay [id number] 2023 Unknown [id number] 2021 [place] [id number] 2021-Present [phone] [address] [place] [address] Medicaid [id number] 2021 Medicaid MEDICAID [facility] MEDICAID [id number] 2021-Present [phone] [address] [place] [address] Medicaid [id number] 2020 Medicare MEDICARE MEDICAR E A AND B [id number] 2020-Present [phone] [place] [address] Medicare [id number] 2020 Medicare [id number] 1959 Medicaid [id number] 1959 Medicare [id number] 1957 Unknown [id number]. 593 1957 Unknown [id number] [id number]. 593 1957 Unknown [id number] [id number]. 593 1957 Unknown [id number] [id number]. 593 1957 Unknown [id number]. 593 1957 Unknown [id number] [id number]. 593 1957 Unknown [id number] [id number]. 356 1957 Unknown [id number] [id number] 356 Private Health Insurance [id number] Private Health Insurance [facility] [id number] Unknown Unknown [place] BC/BS [id number] Unknown [id number] 531 Unknown [id number]. 531 Social History Date Type Detail Facility Start: 08-13-2017 End: 02-13-2022 Tobacco smoking status NHIS Ex-smoker [facility] End: 06-29-2010 History of tobacco use Current smoker [facility] End: 06-29-2010 History of tobacco use Cigarette Smoker [facility] Start: 08-13-2017 End: 02-13-2022 Tobacco use and exposure Smokeless tobacco non-user [facility] Start: 12-03-2021 End: 03-11-2023 Alcohol intake Current drinker of alcohol (finding) [facility] Start: 12-03-2021 End: 10-31-2022 Alcohol intake [facility] Start: 08-13-2017 History SDOH Alcohol Comment occasional beer [facility] Start: 1955 Sex Assigned At Not on file [facility] Start: 11-25-2021 End: 05-08-2022 Exposure to SARS-CoV-2 (event) Not sure [facility] Start: 10-31-2022 End: 11-28-2022 Sex Assigned At [facility] History of tobacco use Passive smoker [facility] Adult Depression Screening Assessment 0 [facility] Start: 1955 Sex Assigned At Male F [facility] Start: 01-27-2023 Unknown if ever smoked [facility] Medical Equipment Procedure Code Equipment Code Equipment Origin al Text Equipment Identifier Dates [facility] 30G - Start: 03-17-2023 Clinical Notes [...] Medical History Fatigue Medical History CAD in koi artery Medical History Malignant neoplasm of duodenum Surgical History heart stent 2010 Surgical History stomach ulcer 2017 Surgical History gallbladder 2018 Surgical History whipple 2017 Surgical History colonoscopy 2019 Hospitalization History SEE SURGICAL HX [employer] Other 01-16-2024 Evaluation note* Encounter Date Diagnosis Assessment Notes Treatment Notes Treatment Clinical Notes Jun, Anxiety disorder, unspecified (ICD-10 - F41.9) [employer] Other 01-02-2024 Evaluation note* Encounter Date Diagnosis Assessment Notes Treatment Notes Treatment Clinical Notes Jun, Anxiety, generalized (ICD-10 - F41.1) [employer] Other 12-18-2023 History general Narrative - Reported* Type Description Date Medical History BMI 20.0-20.9, adult Medical History Paroxysmal atrial fibrillation Medical History Lumbar pain Medical History Essential hypertension Medical History Tachypnea on examination Medical History Dyspnea on exertion Medical History Anxiety, generalized Medical History Anemia, macrocytic Medical History Elevated LFTs Medical History Fatigue Medical History CAD in koi artery Medical History Malignant neoplasm of duodenum Surgical History heart stent 2010 Surgical History stomach ulcer 2017 Surgical History gallbladder 2018 Surgical History whipple 2017 Surgical History colonoscopy 2019 Hospitalization History SEE SURGICAL HX [employer] Other 12-07-2023 Evaluation note* Encounter Date Diagnosis [...] Pain in left hand (ICD-10 - M79.642) [employer] Other 11-24-2023 Evaluation note* Encounter Date Diagnosis Assessment Notes Treatment Notes Treatment Clinical Notes Apr, Anxiety disorder, unspecified (ICD-10 - F41.9) [employer] Other 11-21-2023 Evaluation note* Encounter Date Diagnosis Assessment Notes Treatment Notes Treatment Clinical Notes Apr, Anxiety, generalized (ICD-10 - F41.1) [employer] Other 11-08-2023 Evaluation note* Encounter Date Diagnosis Assessment Notes Treatment Notes Treatment Clinical Notes Apr, Anxiety, generalized (ICD-10 - F41.1) [employer] Other 10-19-2023 History general Narrative - Reported* Type Description Date Medical History BMI 20.0-20.9, adult Medical History Paroxysmal atrial fibrillation Medical History Lumbar pain Medical History Essential hypertension Medical History Tachypnea on examination Medical History Dyspnea on exertion Medical History Anxiety, generalized Medical History Anemia, macrocytic Medical History Elevated LFTs Medical History Fatigue Medical History CAD in koi artery Medical History Malignant neoplasm of duodenum Surgical History heart stent 2010 Surgical History stomach ulcer 2017 Surgical History gallbladder 2018 Surgical History whipple 2018 Surgical History colonoscopy 2019 Hospitalization History SEE SURGICAL HX [employer] Other 10-12-2023 Nurse Note* Homa Powell Ma - 04/09/2023 2:56 PM EDT Patient Identification confirmed: yes. Injection given and documented on MAR per provider order. Homa Powell Ma documented in this encounterCh[facility] History general Narrative - Reported* Type Description Date Medical History BMI 20.0-20.9, adult Medical History Paroxysmal atrial fibrillation Medical History Lumbar pain Medical History Essential hypertension Medical History Tachypnea on examination Medical History Dyspnea on exertion Medical History Anxiety, generalized Medical History Anemia, macrocytic Medical History Elevated LFTs Medical History Fatigue Medical History CAD in koi artery Medical History Malignant neoplasm of duodenum Surgical History heart stent 2010 Surgical History stomach ulcer 2017 Surgical History gallbladder 2018 Surgical History whipple 2018 Surgical History colonoscopy 2019 Hospitalization History SEE SURGICAL [employer] Other 10-10-2023 Evaluation note* Encounter Date Diagnosis Assessment Notes Treatment Notes Treatment Clinical Notes Mar, Anxiety, generalized (ICD-10 - F41.1) [employer] Other 10-02-2023 Miscellaneous Notes* Telephone Encounter - Rola Gordon APRN.CNP - 03/30/2023 4:04 PM EDT The following approved medication requests have been transmitted electronically. Requested Prescriptions Signed Prescriptions Disp Refills folic acid 1 mg tablet 90 tablet 3 Sig: Take 1 tablet by mouth once daily. Authorizing Provider: ROLA GORDON APRN.CNP documented in this encounterCh[facility]09-[facility]-2023 Evaluation note* Encounter Date Diagnosis Assessment Notes Treatment Notes Treatment Clinical Notes Feb, Anxiety disorder, unspecified (ICD-10 - F41.9) [employer] Other 09-18-2023 Miscellaneous Notes* Telephone Encounter - [...] Address on file verified w/ daughter. Susan Joens RN * Telephone Encounter - Zahra Buitrago [...] up based on results. documented in this encounterCh[facility]09-13-2023 Note[facility]* Haley Miller MA - 03/11/2023 11:21 AM EDT Patient Identification confirmed: yes. Injection given and documented on AUG per provider order. Haley Miller MA documented in this encounterChillicothe Hospital09-13-2023 Instructions* Patient Instructions* Zahra Buitrago MD - 03/11/2023 11:09 AM EDT B12 shot today and every 4 weeks. Patient will continue folic acid 1 mg daily as Rx'd. Triage to please call PET/CT results next week Determine follow up based on results. continue following with Dr. Caputo for DMII management. documented in this encounterChillicothe Hospital09-13-2023 History of Present illness Narrative* Zahra Buitrago MD - 03/11/2023 10:45 AM EDT Images from the original note were not included. NAME: Rocio Jcakson CLINIC NO.: [id number] DATE OF SERVICE: March 11, 2023 (Iftikhar) [...] open wounds. CTCAP done late December in [place] concerning for possible metastatic disease. Updated Visit, [...] with his son Joaquin. Worked at a [employer]. Doing well overall is at his baseline. 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 His PFTs are pending, and he was [...] three times daily with meals.^Disp:90 tablet^Rfl: 1 pcycsg-ftwsmjdz-sjekofp (CREON 24) 24,000-76,000 -120,000 unit delayed release [...] 5 blood transfusions Coronary artery disease involving koi coronary artery Diabetes mellitus (HCC) 2017 Duodenal cancer (HCC) Dyslipidemia Fatigue Glaucoma Hypertension Myocardial infarction (HCC) 05/15/2011 PTSD (post-traumatic stress disorder) PAST SURGICAL HISTORY Procedure Laterality Date ANGIOPLASTY HX 05/15/2011 2 stents s/p [place];[facility] CHOLECYSTECTOMY 08/11/2017 [facility] COLONOSCOPY PAST SURGICAL HISTORY OF Cardiac Stents [...] which included preparing to see the patient, uxrk-sc-jvbf patient care, completing clinical documentation, performing a medically appropriate examination, counseling and educating the patient/family/caregiver, ordering medications, tests, or p rocedures, independently interpreting results (not separately reported), communicating results to the patient/family/caregiver, and care coordination (not separately reported). Zahra Buitrago MD, CPE Hematology and Oncology Services Provided at: [place], [place] CC: Dr. David Caputo [address] [place] [id number] documented in this encounterChillicothe Hospital09-13-2023 NoteAs[facility]09-[facility]-2023 History general Narrative - Reported* Type Description Date Medical History BMI 20.0-20.9, adult Medical History Paroxysmal atrial fibrillation Medical History Lumbar pain Medical History Essential hypertension Medical History Tachypnea on examination Medical History Dyspnea on exertion Medical History Anxiety, generalized Medical History Anemia, macrocytic Medical History Elevated LFTs Medical History Fatigue Medical History CAD in koi artery Medical History Malignant neoplasm of duodenum Surgical History heart stent 2010 Surgical History stomach ulcer 2017 Surgical History gallbladder 2018 Surgical History whipple 2018 Surgical History colonoscopy 2019 Hospitalization History SEE SURGICAL HX [employer] Other 09-07-2023 History general Narrative - Reported* Type Description Date Medical History BMI 20.0-20.9, adult Medical History Paroxysmal atrial fibrillation Medical History Lumbar pain Medical History Essential hypertension Medical History Tachypnea on examination Medical History Dyspnea on exertion Medical History Anxiety, generalized Medical History Anemia, macrocytic Medical History Elevated LFTs Medical History Fatigue Medical History CAD in koi artery Medical History Malignant neoplasm of duodenum Surgical History heart stent 2010 Surgical History stomach ulcer 2017 Surgical History gallbladder 2018 Surgical History whipple 2018 Surgical History colonoscopy 2020 Hospitalization History SEE SURGICAL HX [employer] Other 09-07-2023 Evaluation note* Encounter Date Diagnosis Assessment Notes Treatment Notes Treatment Clinical Notes Feb, SIRS (systemic inflammatory response syndrome) (ICD-10 - R65.10) Reviewed hospital notes and discharge summary. Overall improved. Feb, Coronary artery disease involving koi coronary artery of koi heart without angina pectoris (ICD-10 - I25.10) Chronic - continue followup w cardio and oncology. Feb, Type 2 diabetes mellitus with hyperglycemia, without long-term current use of insulin (ICD-10 - E11.65) Glucose improved from earlier this summer. Son will call with some readings at home. [employer] Other 09-07-2023 Miscellaneous Notes* Telephone Encounter - Haley Miller MA - 03/05/2023 11:34 AM EDT Patient has an appt on 03/11/23. Would you like labs, if so place orders. His PET scan is 03/11/23. Haley Miller MA documented in this encounterChillicothe Hospital08-24-2023 NoteAshtabula [facility]08-24-2023 Instructions* Patient Instructions* Zahra Buitrago MD - 02/19/2023 4:16 PM EDT B12 shot today and every 4 weeks. Patient will continue folic acid 1 mg daily as Rx'd. PET/CT in 1-2 weeks RTC same day to review images. continue following with Dr. Caputo for DMII management. documented in this encounterChillicothe Hospital08-24-2023 History of Present illness Narrative* Zahra Buitrago MD - 02/19/2023 3:57 PM EDT Images from the original note were not included. NAME: Rocio Jackson CLINIC NO.: [id number] DATE OF SERVICE: February 19, 2023 ([facility]) Some elements in this clinic note that [...] open wounds. CTCAP done late December in [place] concerning for possible metastatic disease. Updated Visit, [...] with his son Joaquin. Worked at a [employer]. Doing well overall is at his baseline. 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 His PFTs are pending, and he was [...] by mouth three times daily with meals. qbxllf-dxbolgka-nobgqzw (CREON 24) 24,000-76,000 -120,000 unit delayed release [...] 5 blood transfusions Coronary artery disease involving koi coronary artery Diabetes mellitus (HCC) 2017 Duodenal cancer (HCC) Dyslipidemia Fatigue Glaucoma Hypertension Myocardial infarction (HCC) 05/15/2011 PTSD (post-traumatic stress disorder) PAST SURGICAL HISTORY Procedure Laterality Date ANGIOPLASTY HX 05/15/2011 2 stents s[place]p [place];[facility] CHOLECYSTECTOMY 08/11/2017 [facility] COLONOSCOPY PAST SURGICAL HISTORY OF Cardiac Stents [...] which included preparing to see the patient, ubfr-ez-okdf patient care, completing clinical documentation, performing a medically appropriate examination, counseling and educating the patient/family/caregiver, ordering medications, tests, or p rocedures, and independently interpreting results (not separately reported). Zahra Buitrago MD, CPE Hematology and Oncology Services Provided at: [place], [place] CC: Dr. David Caputo [address] [facility] [phone] documented in this encounterChillicothe Hospital08-22-2023 Miscellaneous Notes* Telephone Encounter - Katie Seay - 02/17/2023 2:14 PM EDT Patient has an appt on 02/19. Would you like labs? documented in this encounterChillicothe Hospital07-26-2023 Miscellaneous Notes* Telephone Encounter - Susan Jones RN - 01/21/2023 11:11 AM EDT FYI: Pt admitted to [facility] ICU. Presented w/ chest pain and elevated Troponin. 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 Dr Malhotra, Oncologist w/ the [facility] consulted. Copy of pt's last office note faxed to [phone]. Susan Jones RN documented in this encounterChillicothe Hospital07-19-2023 Evaluation note* Encounter Date Diagnosis Assessment Notes Treatment Notes Treatment Clinical Notes Dec, Anxiety, generalized (ICD-10 - F41.1) [employer] Other 07-19-2023 Miscellaneous Notes* Telephone Encounter - [...] advise. Cassandra Hernandez RN documented in this encounterChillicothe Hospital07-07-2023 History general Narrative - Reported* Type Description Date Medical History BMI 20.0-20.9, adult Medical History Paroxysmal atrial fibrillation Medical History Lumbar pain Medical History Essential hypertension Medical History Tachypnea on examination Medical History Dyspnea on exertion Medical History Anxiety, generalized Medical History Anemia, macrocytic Medical History Elevated LFTs Medical History Fatigue Medical History CAD in koi artery Medical History Malignant neoplasm of duodenum Surgical History heart stent 2010 Surgical History stomach ulcer 2016 Surgical History gallbladder 2018 Surgical History whipple 2017 Surgical History colonoscopy 2019 Hospitalization History SEE SURGICAL HX [facility] [employer] Other 07-06-2023 Evaluation note* Encounter Date Diagnosis [...] forward this info to for further help. [employer] Other 06-30-2023 Nurse Note* Katie Fritzs - 12/26/2022 4:03 PM EDT Patient Identification confirmed: yes. Injection given and documented on MAR per provider order. Katie Seay documented in this encounterChillicothe Hospital06-16-2023 History general Narrative - Reported* Type Description Date Medical History BMI 20.0-20.9, adult Medical History Paroxysmal atrial fibrillation Medical History Lumbar pain Medical History Essential hypertension Medical History Tachypnea on examination Medical History Dyspnea on exertion Medical History Anxiety, generalized Medical History Anemia, macrocytic Medical History Elevated LFTs Medical History Fatigue Medical History CAD in koi artery Medical History Malignant neoplasm of duodenum Surgical History heart stent 2010 Surgical History stomach ulcer 2017 Surgical History gallbladder 2018 Surgical History whipple 2018 Surgical History colonoscopy 2019 Hospitalization History SEE SURGICAL HX [facility] [employer] Other 2023 Evaluation note* Encounter Date Diagnosis Assessment Notes Treatment Notes Treatment Clinical Notes Nov, Anxiety, generalized (ICD-10 - F41.1) Nov, Type 2 diabetes mellitus without complication, without long-term current use of insulin (ICD-10 - E11.9) Samples given from office Janumet - followup in 1 month. [facility] Other 06-02-2023 NoteAshtabula [facility]06-02-2023 Nurse Note* Haley Miller MA - 11/28/2022 4:02 PM EDT Patient Identification confirmed: yes. Injection given and documented on MAR per provider order. Haley Miller MA documented in this encounterChillicothe Hospital06-02-2023 Instructions* Patient Instructions* Zahra Buitrago MD - 11/28/2022 3:42 PM EDT B12 shot today and every 4 weeks. Patient will continue folic acid 1 mg daily as Rx'd. Follow up in 8 weeks for labs and B12. Needs to follow up with Dr. Caputo regarding blood sugars >400 - please send office the labs result. documented in this encounterChillicothe Hospital06-02-2023 History of Present illness Narrative* Zahra Buitrago MD - 11/28/2022 3:37 PM EDT Images from the original note were not included. NAME: Rocio Jackson CLINIC NO.: [id number] DATE OF SERVICE: November 28, 2022 ([facility]ftikhar) [...] with his son Joaquin. Worked at a [employer]. Doing well overall is at his baseline. 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 His PFTs are pending, and he was [...] the tongue every 5 minutes as needed. 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 Plan: wwptdj-cnoczmta-jifiwsp (CREON 24) 24,000-76,000 -120,000 unit delayed release capsule PAST MEDICAL HISTORY Diagnosis Date Anemia Anxiety Bleeding ulcer 11/15/2016 required 5 blood transfusions Coronary artery disease involving koi coronary artery Diabetes mellitus (HCC) 2017 Duodenal cancer (HCC) Dyslipidemia Fatigue Glaucoma Hypertension Myocardial infarction (HCC) 05/15/2011 PTSD (post-traumatic stress disorder) PAST SURGICAL HISTORY Procedure Laterality Date ANGIOPLASTY HX 05/15/2011 2 [place]ents [place] CHOLECYSTECTOMY 08/11/2017 [facility] COLONOSCOPY PAST SURGICAL HISTORY OF Cardiac Stents x2 PAST SURGICAL HISTORY OF 09/2017 [facility] PICC LINE INSERT/CONSULT 08/16/2017 Social History Tobacco [...] which included preparing to see the patient, fxej-sv-kjoo patient care, completing clinical documentation, performing a medically appropriate examination, counseling and educating the patient/family/caregiver, ordering medications, tests, or p rocedures, and independently interpreting results (not separately reported). Zahra Buitrago MD, CPE Hematology and Oncology Services Provided at: [place], [place] CC: Dr. David Caputo [address] [place] [phone] documented in this encounterChill[facility]06-01-2023 Evaluation note* Encounter Date Diagnosis Assessment Notes Treatment Notes Treatment Clinical Notes Nov, Lumbar pain (ICD-10 - M54.50) [facility] Other 05-26-2023 Evaluation note* Encounter Date Diagnosis Assessment Notes Treatment Notes Treatment Clinical Notes October, Anxiety, generalized (ICD-10 - F41.1) [facility] Other 05-05-2023 Nurse Note* Haley Miller MA - 10/31/2022 3:35 PM EDT Patient Identification confirmed: yes. Injection given and documented on AUG per provider order. Haley Miller MA documented in this encounterChillicothe Hospital05-03-2023 Miscellaneous Notes* Telephone Encounter - Rola Gordon APRN.CNP - 10/29/2022 2:43 PM EDT The following approved medication requests have been transmitted electronically. Requested Prescriptions Signed Prescriptions Disp Refills metoclopramide HCl (REGLAN) 10 mg tablet 90 tablet 1 Sig: Take 1 tablet by mouth three times daily with meals. Authorizing Provider: ROLA GORDON APRN.CNP documented in this encounterChillicothe Hospital05-02-2023 History general Narrative - Reported* Type Description Date Medical History BMI 20.0-20.9, adult Medical History Paroxysmal atrial fibrillation Medical History Lumbar pain Medical History Essential hypertension Medical History Tachypnea on examination Medical History Dyspnea on exertion Medical History Anxiety, generalized Medical History Anemia, macrocytic Medical History Elevated LFTs Medical History Fatigue Medical History CAD in koi artery Medical History Malignant neoplasm of duodenum Surgical History heart stent 2010 Surgical History stomach ulcer 2016 Surgical History gallbladder 2018 Surgical History whipple 2017 Surgical History colonoscopy 2019 Hospitalization History SEE SURGICAL [facility] Other 04-07-2023 [facility]* Katie Seay - 10/03/2022 4:04 PM EDT Patient Identification confirmed: yes . Injection given and documented on AUG per provider order. Katie Seay documented in this encounterChillicothe Hospital03-10-2023 Nurse Note* Haley Miller MA - 09/05/2022 2:16 PM EST Patient Identification confirmed: yes. Injection given and documented on AUG per provider order. Haley Miller MA documented in this encounterChillicothe Hospital02-22-2023 Miscellaneous Notes* Telephone Encounter - Rola Gordon APRN.CNP - 08/20/2022 10:08 AM EST The following approved medication requests have been transmitted electronically. Requested Prescriptions Signed Prescriptions Disp Refills metoclopramide HCl (REGLAN) 10 mg tablet 90 tablet 1 Sig: Take 1 tablet by mouth three times daily with meals. Authorizing Provider: ROLA GORDON APRN.[employer] documented in this encounterChillicothe Hospital02-10-2023 NoteAshtabula [facility]02-10-2023 Instructions* Patient Instructions* Zahra Buitrago MD - 08/08/2022 3:14 PM EST B12 shot today and every 4 weeks. Patient will continue folic acid 1 mg daily as Rx'd. RTC in 8 weeks for follow-up, labs and B12 See Rola Dee documented in this encounterChillicothe Hospital02-10-2023 History of Present illness Narrative* Zahra Buitrago MD - 08/08/2022 3:00 PM EST Images from the original note were not included. NAME: Rocio Jackson CLINIC NO.: [id number] DATE OF SERVICE: August 08, 2022 (Iftikhar) [...] with his son Joaquin. Worked at a [employer]. Doing well overall is at his baseline. 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 His PFTs are pending, and he was [...] MOUTH THREE TIMES A DAY WITH MEALS kixzxo-tncegrgl-ymthvzh (CREON 24) 24,000-76,000 -120,000 unit delayed release [...] 5 blood transfusions Coronary artery disease involving koi coronary artery Diabetes mellitus (HCC) 2017 Duodenal cancer (HCC) Dyslipidemia Fatigue Glaucoma Hypertension Myocardial infarction (HCC) 05/15/2011 PTSD (post-traumatic stress disorder) PAST SURGICAL HISTORY Procedure Laterality Date ANGIOPLASTY HX 05/15/2011 2 stents s[place]p [place];[facility] CHOLECYSTECTOMY 08/11/2017 [facility] COLONOSCOPY PAST SURGICAL HISTORY OF Cardiac Stents [...] which included preparing to see the patient, kvzo-vw-yrnw patient care, completing clinical documentation, obtaining and/or reviewing separately obtained history, performing a medically appropriate examination, counseling and educating the pat ient/family/caregiver and ordering medications, tests, or procedures. Zahra Buitrago MD, CPE [place], [place] CC: David Caputo MD [address] [place] [phone] documented in this encounterChillicothe Hospital02-10-2023 Miscellaneous Notes* Telephone Encounter - Magalys Cruz RN - 08/08/2022 2:37 PM EST Received call from Paty at [facility] with urgent result: Glucose 501 Magalys Cruz RN documented in this encounterChillicothe Hospital01-19-2023 Evaluation note* Encounter Date Diagnosis Assessment Notes Treatment Notes Treatment Clinical Notes Jun, CAD in koi artery (ICD-10 - I25.10) Continue medications as prescribed Jun, Atypical chest pain (ICD-10 - R07.89) Called [facility] message to return my call. Patient has appointment 09/16. Requested moved up appointment and consider testing at their office as I know they would prefer. 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 Continues remission [facility] Other 01-09-2023 Miscellaneous Notes* Telephone Encounter - [...] recurrence.Thanks for calling him documented in this encounterChillicothe Hospital01-05-2023 [facility]01-05-2023 Nurse Note* Katie Seay - 07/03/2022 3:01 PM EST Patient Identification confirmed: yes. Injection given and documented on AUG per provider order. Katie Seay documented in this encounterChillicothe Hospital01-05-2023 [facility]01-05-2023 Instructions* Patient Instructions* Zahra Buitrago MD - 07/03/2022 2:18 PM EST B12 shot today and every [address] results pending today Triage to call results Thursday Patient will continue folic acid 1 mg daily as Rx'd. RTC in 4 weeks for follow-up, labs and B12 See Rola / Leila documented in this encounterChillicothe Hospital01-05-2023 History of Present illness Narrative* Zahra Buitrago MD - 07/03/2022 2:12 PM EST Images from the original note were not included. NAME: Rocio Jackson [facility] NO.: [id number] DATE OF SERVICE: July 03, 2022 (Iftikhar) [...] with his son Joaquin. Worked at a [employer]. Doing well overall is at his baseline. 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 His PFTs are pending, and he was [...] MOUTH THREE TIMES A DAY WITH MEALS zcxcmk-lvztugdp-ntylqgt (CREON 24) 24,000-76,000 -120,000 unit delayed release [...] 5 blood transfusions Coronary artery disease involving koi coronary artery Diabetes mellitus (HCC) 2017 Duodenal cancer (HCC) Dyslipidemia Fatigue Glaucoma Hypertension Myocardial infarction (HCC) 05/15/2011 PTSD (post-traumatic stress disorder) PAST SURGICAL HISTORY Procedure Laterality Date ANGIOPLASTY HX 05/15/2011 2 stents s[place]p [place];[facility] CHOLECYSTECTOMY 08/11/2017 [facility] COLONOSCOPY PAST SURGICAL HISTORY OF Cardiac Stents [...] which included preparing to see the patient, qpsz-yf-igzo patient care, completing clinical documentation, obtaining and/or reviewing separately obtained history, performing a medically appropriate examination, counseling and educating the pat ient/family/caregiver and ordering medications, tests, or procedures. Zahra Buitrago MD, [facility] [place], [place] CC: David Caputo MD [address] [place] [phone] documented in this encounterChillicothe Hospital12-09-2022 NoteHNO ID: [id number] Author: Sandra Patiño Service: ? Author Type: ? Type: Progress Notes Filed: 06/06/2022 2:36 PM Note Text: Patient Identification confirmed: yes. Injection given and documented on AUG per provider order. Sandra PatiñoAshtabula County Medical Center12-09-2022 NoteAshtabula [facility]12-09-2022 History of Present illness Narrative* Sandra Patiño - 06/06/2022 2:34 PM EST Patient Identification confirmed: yes. Injection given and documented on MAR per provider order. Sandra Patiño documented in this encounterChillicothe Hospital12-09-2022 Instructions* Patient Instructions* Zahra Buitrago MD - 06/06/2022 2:23 PM EST B12 shot today and every 4 weeks. Labs pending today Triage to call results Thursday Monoferric 1000 mg if indicated. Patient will continue folic acid 1 mg daily as Rx'd. RTC in 4 weeks for follow-up, labs and B12 and CT's RTC same day as scans and labs documented in this encounterChillicothe Hospital12-09-2022 History of Present illness Narrative* Zahra Buitrago MD - 06/06/2022 1:57 PM EST Images from the original note were not included. NAME: Rocio Jackson CLINIC NO.: [id number] DATE OF SERVICE: June 06, 2022 (Iftikhar) [...] with his son Joaquin. Worked at a [employer]. Doing well overall is at his baseline. 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 His PFTs are pending, and he was [...] MOUTH THREE TIMES A DAY WITH MEALS dcsgsx-mcgrvjpr-uwvbhfx (CREON 24) 24,000-76,000 -120,000 unit delayed release [...] 5 blood transfusions Coronary artery disease involving koi coronary artery Diabetes mellitus (HCC) 2016 Duodenal cancer (HCC) Dyslipidemia Fatigue Glaucoma Hypertension Myocardial infarction (HCC) 05/15/2011 PTSD (post-traumatic stress disorder) PAST SURGICAL HISTORY Procedure Laterality Date ANGIOPLASTY HX 05/15/2011 2 stents s[place]p [place];[facility] CHOLECYSTECTOMY 08/11/2017 [facility] COLONOSCOPY PAST SURGICAL HISTORY OF Cardiac Stents x2 PAST SURGICAL HISTORY OF 09/2017 [facility] PICC LINE INSERT/CONSULT 08/16/2017 Social History Tobacco [...] which included preparing to see the patient, ygsw-ah-piqy patient care, completing clinical documentation, obtaining and/or reviewing separately obtained history, performing a medically appropriate examination, counseling and educating the pat ient/family/caregiver and ordering medications, tests, or procedures. Zahra Buitrago MD, [place], [place] CC: David Caputo MD [address] [facility] [phone] documented in this encounterChillicothe Hospital11-15-2022 NotePROCEDURE: XR HIP LT 2 3V W PELVIS HISTORY: Low back pain ; acute left hip pain since falling one week ago COMPARISON: None. FINDINGS: BONES:No fracture, acute abnormality, or significant arthropathy. SOFT TISSUES:No visible soft tissue swelling. EFFUSION:None visible. OTHER: Negative. IMPRESSION: 1. No acute bone abnormality or significant degenerative joint disease. Electronically authenticated by: REBA REID Date: 2022-05-13 07:57[id number] NoteAshtabula [facility] Center11-10-2022 History of Present illness Narrative* Zahra Buitrago MD - 05/08/2022 2:00 PM EST Images from the original note were not included. NAME: Rocio Jackson CLINIC NO.: [id number] DATE OF SERVICE: May 08, 2022 (Iftikhar) [...] or nausea. 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 His PFTs are pending, and he was [...] petechiae. ALLERGIES: ALLERGIES No Known Allergies MEDICATIONS: jqatpj-kutuhbmu-nzwiizc (CREON 24) 24,000-76,000 -120,000 unit delayed release [...] 5 blood transfusions Coronary artery disease involving koi coronary artery Diabetes mellitus (HCC) 2017 Duodenal cancer (HCC) Dyslipidemia Fatigue Glaucoma Hypertension Myocardial infarction (HCC) 05/15/2011 PTSD (post-traumatic stress disorder) PAST SURGICAL HISTORY Procedure Laterality Date ANGIOPLASTY HX 05/15/2011 2 stents s/p [place];[facility] CHOLECYSTECTOMY 08/11/2017 [facility] COLONOSCOPY PAST SURGICAL HISTORY OF Cardiac Stents [...] which included preparing to see the patient, ugxl-gc-pvzi patient care, completing clinical documentation, obtaining and/or reviewing separately obtained history, performing a medically appropriate examination, counseling and educating the pat ient/family/caregiver and ordering medications, tests, or procedures. Zahra Buitrago MD, CPE [place], [place] CC: David Caputo MD [address] [place] [phone] documented in this encounterChillicothe Hospital11-10-2022 Instructions* Patient Instructions* Zahra Buitrago MD [...] reticulonodular / inflammatory changes. documented in this encounterChillicothe Hospital10-13-2022 History of Present illness Narrative* Sofia Crouch RN - 04/10/2022 2:29 PM EDT Spoke with Pharmacy. Monoferric can be ran over 20 minutes and premeds can be omitted today per infusion protocol. Pt had recent infusion with no issues. Sofia Crouch RN documented in this encounterChillicothe Hospital10-13-2022 Instructions* Patient Instructions* Zahra Buitrago MD [...] reticulonodular / inflammatory changes. documented in this encounterChillicothe Hospital10-13-2022 History of Present illness Narrative* Zahra Buitrago MD - 04/10/2022 1:08 PM EDT Images from the original note were not included. 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 His PFTs are pending, and he was [...] petechiae. ALLERGIES: ALLERGIES No Known Allergies MEDICATIONS: ksdzdv-xhctqyyt-exwihjl (CREON 24) 24,000-76,000 -120,000 unit delayed release [...] 5 blood transfusions Coronary artery disease involving koi coronary artery Diabetes mellitus (HCC) 2017 Duodenal cancer (HCC) Dyslipidemia Fatigue Glaucoma Hypertension Myocardial infarction (HCC) 05/15/2011 PTSD (post-traumatic stress disorder) PAST SURGICAL HISTORY Procedure Laterality Date ANGIOPLASTY HX 05/15/2011 2 stents s/p [place];[facility] CHOLECYSTECTOMY 08/11/2017 [facility] COLONOSCOPY PAST SURGICAL HISTORY OF Cardiac Stents [...] which included preparing to see the patient, ybhw-wz-kmui patient care, completing clinical documentation, obtaining and/or reviewing separately obtained history, performing a medically appropriate examination, counseling and educating the pat ient/family/caregiver and ordering medications, tests, or procedures. Zahra Buitrago MD, CPE [facility] [place], [place] CC: David Caputo MD [address] [place] [phone] documented in this encounterChillicothe Hospital10-12-2022 Miscellaneous Notes* Telephone Encounter - Haley Miller MA - 04/09/2022 11:43 AM EDT Patient has an appt on 04/10/22. Would you like labs, if so place orders, your orders are for everyother week. Haley Miller MA documented in this encounterChillicothe Hospital09-29-2022 Miscellaneous Notes* Telephone Encounter - Rola Gordon APRN.CNP - 03/27/2022 11:27 AM EDT The following approved medication requests have been transmitted electronically. Requested Prescriptions Signed Prescriptions Disp Refills kzhhmr-jhaitunh-tdjinbk (CREON 24) 24,000-76,000 -120,000 unit delayed release capsule 540 capsule 1 Sig: Take 2 capsules by mouth three times daily with meals. Authorizing Provider: ROLA GORDON APRN.CNP * Telephone Encounter - Imelda Cartagena RPh - 03/27/2022 8:30 AM EDT Patient's insurance plan covers a 90 day supply. 90 day script pending. documented in this encounterChillicothe Hospital09-15-2022 Miscellaneous Notes* Telephone Encounter - Rola Gordon APRN.CNP - 03/13/2022 2:25 PM EDT The following approved medication requests have been transmitted electronically. Requested Prescriptions Signed Prescriptions Disp Refills folic acid 1 mg tablet 90 tablet 3 Sig: Take 1 tablet by mouth once daily. Authorizing Provider: ROLA GORDON APRN.CNP documented in this encounterChillicothe Hospital09-15-2022 History of Present illness Narrative* Rola Gordon APRN.CNP - 03/13/2022 1:00 PM EDT Images from the original note were not included. NAME: Rocio Jackson CLINIC NO.: [id number] DATE OF SERVICE: March 13, 2022 Some [...] 1000 mg today. 3. Patient did not crab picker prescription for folic acid. Will send a new prescription to patient[facility] choice[facility] [place]. 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 His PFTs are pending, and he was [...] by mouth three times daily with meals. qpwmct-eqoqqaqz-rvkjjxb (CREON 24) 24,000-76,000 -120,000 unit delayed release [...] 5 blood transfusions Coronary artery disease involving koi coronary artery Diabetes mellitus (HCC) 2017 Duodenal cancer (HCC) Dyslipidemia Fatigue Glaucoma Hypertension Myocardial infarction (HCC) 05/15/2011 PTSD (post-traumatic stress disorder) PAST SURGICAL HISTORY Procedure Laterality Date ANGIOPLASTY HX 05/15/2011 2 stents s/p [place];[facility] CHOLECYSTECTOMY 08/11/2017 [facility] COLONOSCOPY PAST SURGICAL HISTORY OF Cardiac Stents [...] of Onset Cancer Sister Rola Gordon APRN.CNP [place], [place] CC: Zahra Buitrago MD [address] [place] [address] [facility] [id number] David Caputo MD [address] [place] [phone] I spent a total of 30 minutes on the date of the service which included preparing to see the patient, ufwt-we-mbpz patient care, completing clinical documentation, obtaining and/or reviewing separately obtained history, performing a medically appropriate examination, counseling and educating the pat ient/family/caregiver, ordering medications, tests, or procedures, independently interpreting results (not separately reported), and communicating results to the patient/family/caregiver. documented in this encounterChillicothe Hospital09-15-2022 Miscellaneous Notes* [facility]/13[facility] 10:51 AM EDT 1st report of treatment-Non oncology regimen (Monoferric) Patient holds Medicare coverage and therefore no FA required. documented in this encounterChillicothe Hospital09-02-2022 History of Present illness Narrative* TRACI Andrade - 02/28/2022 9:33 AM EDT Patient is listed on the First Time Treatment Report. Patient is scheduled to receive a non-oncology treatment. No psychosocial assessment is indicated. MARINO Andrade documented in this encounterChillicothe Hospital08-22-2022 Miscellaneous Notes* Telephone Encounter - Cassandra [...] she is aware it is ready for crab picker. Cassandra Hernandez RN documented in this [facility] [place]08-18-2022 Nurse Note* Katie Seay - 02/13/2022 3:23 PM EDT Patient Identification confirmed: yes. Injection given and documented on AUG per provider order. Katie Seay documented in this encounterChillicothe Hospital08-18-2022 History of Present illness Narrative* Zahra Buitrago MD - 02/13/2022 2:48 PM EDT Images from the original note were not included. 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 His PFTs are pending, and he was [...] by mouth three times daily with meals. jrqwfd-biwvcgop-opyofjd (CREON 24) 24,000-76,000 -120,000 unit delayed release [...] 5 blood transfusions Coronary artery disease involving koi coronary artery Diabetes mellitus (HCC) 2017 Duodenal cancer (HCC) Dyslipidemia Fatigue Glaucoma Hypertension Myocardial infarction (HCC) 05/15/2011 PTSD (post-traumatic stress disorder) PAST SURGICAL HISTORY Procedure Laterality Date ANGIOPLASTY HX 05/15/2011 2 stents s/p [place];[facility] CHOLECYSTECTOMY 08/11/2017 [facility] COLONOSCOPY PAST SURGICAL HISTORY OF Cardiac Stents x2 PAST SURGICAL HISTORY OF 09/2017 [facility] PICC LINE INSERT/CONSULT 08/16/2017 Social History Tobacco [...] which included preparing to see the patient, qcpg-gs-zdzv patient care, completing clinical documentation, obtaining and/or reviewing separately obtained history, performing a medically appropriate examination, counseling and educating the pat ient/family/caregiver and ordering medications, tests, or procedures. aZhra Buitrago MD, CPE [facility] [place], [place] CC: Zahra Buitrago MD [address] [place] [address] [place] [address] David Caputo MD [address] [place] [phone] documented in this encounterChillicothe Hospital08-17-2022 Miscellaneous Notes* Telephone Encounter - Rola [...] be sent to [facility] in [place]. CHRIS: Order pending. Please review and sign. Magalys Cruz RN documented in this encounterChillicothe Hospital08-15-2022 Miscellaneous Notes* Telephone Encounter - Rola [...] Thanks Veronica Hall RN documented in this encounterChillicothe Hospital07-21-2022 Evaluation note* Encounter Date Diagnosis Assessment [...] WILL ORDER SOME TESTING AT THIS TIME [employer] Other 06-09-2022 Nurse Note* Homa Powell Ma - 12/05/2021 3:09 PM EDT Patient unsure of any of his medications and was instructed to bring a list next time he comes. Homa Powell Ma documented in this encounterChillicothe Hospital06-09-2022 History of Present illness Narrative* Zahra Buitrago MD - 12/05/2021 3:00 PM EDT Images from the original note were not included. 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 His PFTs are pending, and he was [...] mg by mouth twice daily before meals. ekmtae-briotloj-okaukcl (CREON 24) 24,000-76,000 -120,000 unit cpDR Take [...] CA 19-9 BLD (K31.5) Duodenal obstruction Plan: mbyntc-stgcdjnj-imohjpc (CREON 24) 24,000-76,000 -120,000 unit delayed release capsule (D50.9) Iron deficiency anemia, unspecified iron deficiency anemia type Plan: xnxmxs-adzujewe-xibfwmc (CREON 24) 24,000-76,000 -120,000 unit delayed release [...] 5 blood transfusions Coronary artery disease involving koi coronary artery Diabetes mellitus (HCC) 2017 Duodenal cancer (HCC) Dyslipidemia Fatigue Glaucoma Hypertension Myocardial infarction (HCC) 05/15/2011 PTSD (post-traumatic stress disorder) PAST SURGICAL HISTORY Procedure Laterality Date ANGIOPLASTY HX 05/15/2011 2 stents s[place]p [place];[facility] CHOLECYSTECTOMY 08/11/2017 [facility] COLONOSCOPY PAST SURGICAL HISTORY OF Cardiac Stents [...] which included preparing to see the patient, ycpy-vc-edhh patient care, completing clinical documentation, obtaining and/or reviewing separately obtained history, performing a medically appropriate examination, counseling and educating the pat ient/family/caregiver and ordering medications, tests, or procedures. Zahra Buitrago MD, CPE [facility] [place], [place] CC: Zahra Buitrago MD [address] [place] [address] [place] [address] David Caputo MD [address] [place] [phone] documented in this encounterChillicothe Hospital12-16-2021 Progress note Author Monico Reyez [facility] June 13, 2021 2:01pm Note Date/Time June 13, 2021 2:00pm [facility] [address] [place] [id number] Hem/Onc Follow Up Note - OP Signed Patient: Rocio Jackson MR#: [id number] : 1955 Acct:[id number] Age/Sex: 66 / M Type: REG RCR [...] of the ampulla of Vater resected the [facility] number of years ago and then had adjuvant chemotherapy while I was at [facility]. Rocio is a patient well-known to me. 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 He has been followed since that time. Labs recently drawn at [facility] and are overall negative except for mild macrocytosis. He appears to be doing overall very well Subjective/ROS - Narrative: No new complaints. [facility] - Medical History Medical History: Medical History [...] mg PO DAILY 03/04/19 [History Confirmed 12/13/20] bxxxmz-htglhicv-khgydjm 24,000-76,000-120,000 unit capsule,delayed rel (Creon) 1cap PO TID 03/04/19 [History Confirmed 12/13/20] metoprolol succinate 25 mg capsule sprinkle, ext. release 24 hr 25 mg PO DAILY 03/04/19 [History Confirmed 12/13/20] empagliflozin 25 mg tablet (Jardiance) 25 mg PO DAILY 02/28/20 [History Confirmed 12/13/20] iiuezl-trrbojtq-dxwtqpz 24,000-76,000-120,000 unit capsule,delayed rel (Creon) 1cap PO [...] for coordination of care (as documented) and qmpm-xl-cpmk counseling of patient and/or family. Dictated By: Monico Reyez MD DD/ 1359 Signed By: <Electronically signed by MD Monico Reyez> 06/13/21 1401 [facility] Work Phone: 1(118) 605-146306-17-2021 Progress note Author Monico Reyez [facility] December 13, 2020 3:06pm Note Date/Time December 13, 2020 3:05 pm [facility] [place] [address] Hem/Onc Follow Up Note - OP Signed Patient: Rocio Jackson MR#: [id number] : 1955 Acct:[id number] Age/Sex: 65 / M Type: REG RCR [...] Vater having received adjuvant capecitabine and gemcitabine. [facility] - Medical History Medical History: Medical History [...] for coordination of care (as documented) and ejqu-xp-yrlp counseling of patient and/or family. Dictated By: Monico Reyez MD DD/ 1502 Signed By: <Electronically signed by MD Monico Reyez> 12/13/20 1506 [facility] Work Phone: 1(186) 394-120312-08-2020 Progress note Author Monico Reyez [facility] June 05, 2020 1:30pm Note Date/Time June 05, 2020 1 :18pm [facility] [place] [address] Hem/Onc Follow Up Note - OP Signed Patient: Rocio Jackson MR#: [id number] : 1955 Acct:[id number] Age/Sex: 64 / M Type: REG RCR [...] Vater having received adjuvant capecitabine and gemcitabine. [facility] - Medical History Medical History: Medical History [...] % (Auto) 57.8, Lymph % (Auto) 30.5, Elmore % (Auto) 5.8, Eos % (Auto) 5.1, Baso % (Auto) 0.8, Neut # (Auto) 2.9, Lymph # (Auto) 1.5, Elmore # (Auto) 0.3, Eos # (Auto) 0.3, [...] for coordination of care (as documented) and hoco-ji-azqh counseling of patient and/or family. Dictated By: Monico Reyez MD DD/ 1312 Signed By: <Electronically signed by MD Monico Reyez> 06/05/20 1330 [facility] Work Phone: 1(225) 127-704809-08-2020 Progress note Author Monico Reyez [facility] March 06, 2020 1:51pm Note Date/Time March 06, 2020 1:50pm [facility] [place] [address] Hem/Onc Follow Up Note - OP Signed Patient: Rocio Jackson MR#: [id number] : 1955 Acct:[id number] Age/Sex: 64 / M Type: REG RCR [...] that time. His latest CT scans at [facility] are negative. His biggestcomplaint today is weakness and fatigue. He does appear very pale overall we will check some basic blood work today and I will see him back in follow-up. [facility] - Medical History Medical History: Medical History [...] for coordination of care (as documented) and tsks-lt-hvdm counseling of patient and/or family. Dictated By: Monico Reyez MD DD/ 1349 Signed By: <Electronically signed by MD Monico Reyez> 03/06/20 5977 [facility] Work Phone: 1(264) 512-743309-01-2020 Progress note Author Monico Reyez [facility] February 28, 2020 2:12pm Note Date/Time February 28, 2020 2:10pm [facility] [place] [address] Hem/Onc Follow Up Note - OP Signed Patient: Rocio Jackson MR#: [id number] : 1955 Acct:[id number] Age/Sex: 64 / M Type: REG RCR [...] that time. His latest CT scans at [facility] are negative. His biggestcomplaint today is weakness and fatigue. He does appear very pale overall we will check some basic blood work today and I will see him back in follow-up. [facility] - Medical History Medical History: Medical History [...] % (Auto) 55.0, Lymph % (Auto) 32.7, Elmore % (Auto) 9.3, Eos % (Auto) 2.4, Baso % (Auto) 0.6, Neut # (Auto) 3.0, Lymph # (Auto) 1.8, Elmore # (Auto) 0.5, Eos # (Auto) 0.1, [...] for coordination of care (as documented) and ryvx-gi-tleh counseling of patient and/or family. Dictated By: Monico Reyez MD DD/ 1409 Signed By: <Electronically signed by MD Monico Reyez> 02/28/20 1412 [facility] Work Phone: Evaluation note* Diagnosis Cancer of [...] ampulla [facility] Vater [facility] Diagnosis Iron deficiency anemia, unspecified iron deficiency anemia type- Primary Anemia due to vitamin B12 deficiency, unspecified B12 deficiency type Anemia due to folic acid deficiency, unspecified deficiency type 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 [facility] [place] [facility] Diagnosis Macrocytosis- Primary Other specified diseases of blood and blood-forming organs Abnormal weight loss Loss of weight Adenocarcinoma (HCC) Other malignant neoplasm without specification of site 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 documented [facility] [place] [facility]* Diagnosis 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 Interstitial pulmonary disease (HCC) Postinflammatory pulmonary fibrosis Iron deficiency anemia, unspecified iron deficiency anemia type Anemia due to vitamin B12 deficiency, unspecified B12 deficiency type [facility] [place] [facility] Diagnosis Macrocytosis- Primary Other specified diseases of blood and blood-forming organs Abnormal weight loss Loss of weight Adenocarcinoma (HCC) Other malignant neoplasm without specification of site 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 Anemia due to vitamin B12 deficiency, unspecified B12 deficiency type documented [facility] [place] [facility]* Diagnosis 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 Anemia due to vitamin B12 deficiency, unspecified B12 deficiency type Anemia due to folic acid deficiency, unspecified deficiency type Macrocytosis Other specified diseases of blood and blood-forming organs documented in this encounter [facility] [place] [facility]* Diagnosis Macrocytosis- Primary Other specified diseases of blood and blood-forming organs Anemia due to vitamin B12 deficiency, unspecified B12 deficiency type Anemia due to folic acid deficiency, unspecified deficiency type 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 documented [facility] [place] [facility]No [facility] [employer] Other Evaluation note* Diagnosis Macrocytosis- Primary Other [...] [facility] Work Phone: Evaluation note* Diagnosis Anemia due [...] severe protein-calorie malnutrition [facility] Diagnosis Macrocytosis- Primary Other specified diseases of blood and blood-forming organs Abnormal weight loss Loss of weight Adenocarcinoma (HCC) Other malignant neoplasm without specification of site 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 [facility] Narrative - Reported* Type Description Date Surgical History heart stent Surgical History stomach ulcer 2017 Surgical History gallbladder 2018 Surgical History whipple 2018 [employer] Other History general Narrative - Reported* Type Description Date Medical History BMI 20.0-20.9, adult Medical History Paroxysmal atrial fibrillation Medical History Lumbar pain Medical History Essential hypertension Medical History Tachypnea on examination Medical History Dyspnea on exertion Medical History Anxiety, generalized Medical History Anemia, macrocytic Medical History Elevated LFTs Medical History Fatigue Medical History CAD in koi artery Medical History Malignant neoplasm of duodenum Surgical History heart stent 2010 Surgical History stomach ulcer 2017 Surgical History gallbladder 2018 Surgical History whipple 2018 Surgical History colonoscopy 2019 Hospitalization History SEE SURGICAL HX [employer] Other Reason for referral (narrative)* Diagnostic Procedure Only (Routine) - Authorized Specialty Diagnoses / Procedures Referred By Contac t Referred To Contact MOLECULAR & FUNCTIONAL IMAGING Diagnoses Cancer of ampulla of Vater (HCC) Procedures NM PET/CT SKULL-THIGH INITIAL PET IMAGING CT ATTENUATION SKULL BASE MID-THIGH Zahra Buitrago MD [address] [place] [address] [place] [address] Molecular & Functional Imaging [address] [place] [address] Referral ID Status Reason Start Date Expiration Date Visits Requested Visits Authorized [id number] Authorized Auto-Generat ed Referral 03/05/2023 03/20/2024 1 1 [facility] Summary Purpose Family History Unknown Family [...] Description Status Resuscitation FULL CODE Verified By [facility] Record Only Advance Directive Response Recorded Date/ Time Advance Directives No February 14, 2023 8:12am Reason for Referral Specialty Diagnoses / Procedures Referred By Marilee t Referred To Contact CT IMAGING Diagnoses Iron deficiency anemia, unspecified iron deficiency anemia type 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) Procedures CT CHEST W IVCON DIAGNOSTIC COMPUTED TOMOGRAPHY THORAX W/CONTRAST Zahra Buitrago MD [address] [place] [address] [place] [address] Ct Imaging Referral ID Status Reason Start Date Expiration Date Visits Requested Visits Authorized [id number] Authorized Auto-Generat ed Referral 02/04/2022 01/04/2023 1 1 Specialty Diagnoses / Procedures [facility]ING Diagnoses Iron deficiency anemia, unspecified iron deficiency anemia type 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) Procedures CT ABD/PEL W IVCON CT ABD & PELVIS W/CONTRAST Zahra Buitrago MD [address] [place] [address] [place] [address] Ct Imaging Referral ID Status Reason Start Date Expiration Date Visits Requested Visits Authorized [id number] Authorized Auto-Generat ed Referral 02/04/2022 01/04/2023 1 1 Specialty Diagnoses / Procedures Referred By Contac t Referred To Contact CT IMAGING Diagnoses Interstitial pulmonary disease (HCC) Cancer of ampulla of Vater (HCC) Anemia due to vitamin B12 deficiency, unspecified B12 deficiency type Procedures CT CHEST W IVCON DIAGNOSTIC COMPUTED TOMOGRAPHY THORAX W/CONTRAST Zahra Buitrago MD [address] [place] [address] [place] [address] Ct Imaging Referral ID Status Reason Start Date Expiration Date Visits Requested Visits Authorized [id number] Authorized Auto-Generat ed Referral 07/04/2022 07/06/2023 1 1 Specialty Diagnoses / Procedures Referred By Contac t Referred To Contact CT IMAGING Diagnoses Interstitial pulmonary disease (HCC) Cancer of ampulla of Vater (HCC) Anemia due to vitamin B12 deficiency, unspecified B12 deficiency type Procedures CT ABD/PEL W IVCON CT ABD & PELVIS W/CONTRAST Zahra Buitrago MD [address] [place] [address] [place] [address] Ct Imaging Referral ID Status Reason Start Date Expiration Date Visits Requested Visits Authorized [id number] Authorized Auto-Generat ed Referral 07/04/2022 07/06/2023 1 1 Reason *FU 12/08 Last 2 O V and xray results - thank you Diagnosis 1 Lumbar pain (M54.50) Referral Organization [facility] marly Referring Provider First Name David Referring Provider Last Name Harshal Referring Provider Specialty Family [facility] Referred Organization [facility] Referred Provider Gladis Lopez Referred Address [address] [place], [place],[address] Referred Provider Specialty Pain Medicin e Referral Priority Routine General Notes Dorene Gunter 02:06:36 PM >received today, attachments made, notes locked, referral faxed Clinical Notes F: [id number] Specialty Diagnoses / Procedures Referred By Contac t Referred To Contact CT IMAGING Diagnoses Cancer of ampulla of Vater (HCC) Anemia due to vitamin B12 deficiency, unspecified B12 deficiency type Severe protein-calorie malnutrition (HCC) Procedures CT CHEST W IVCON DIAGNOSTIC COMPUTED TOMOGRAPHY THORAX W/CONTRAST Zahra Buitrago MD [address] [place] [address] [place] [address] Ct Imaging [facility] Referral ID Status Reason Start Date Expiration Date Visits Requested Visits Authorized [id number] Authorized Auto-Generat ed Referral 06/29/2023 04/14/2024 1 1 Specialty Diagnoses / Procedures Referred By Contac t Referred To Contact CT IMAGING Diagnoses Cancer of ampulla of Vater (HCC) Anemia due to vitamin B12 deficiency, unspecified B12 deficiency type Severe protein-calorie malnutrition (HCC) Procedures CT ABD/PEL W IVCON CT ABD & PELVIS W/CONTRAST Zahra Buitrago MD [address] [place] [address] [place] [address] [place] [id number] Referral ID Status Reason Start Date Expiration Date Visits Requested Visits Authorized [id number] Authorized Auto-Generat ed Referral 06/29/2023 04/14/2024 1 [...] section and content) DATE CREATED AUTHOR 12/17/2017 [facility] DATE CREATED AUTHOR AUTHOR'S ORGANIZ ATION 12/31/2017 [facility] DATE CREATED AUTHOR AUTHOR'S ORGANIZ ATION 07/22/2022 [facility] DATE CREATED AUTHOR AUTHOR'S ORGANIZ ATION 09/17/2022 [employer] DATE CREATED AUTHOR AUTHOR'S ORGANIZ ATION 10/03/2022 [facility] DATE CREATED AUTHOR AUTHOR'S ORGANIZ ATION 02/28/2023 [facility] DATE CREATED AUTHOR AUTHOR'S ORGANIZ ATION 04/11/2023 [facility] Source Comments (unrecognize d section and content) In the event this informatio n is protected by the Federal Confidentiality of Alcohol and Drug Abuse Patient Records regulations: The Federal rules restrict any use of the information to criminally investigate or prosecute any alcohol or drug abuse patient.[facility] the event this information is protected by the Federal Confidentiality of Alcohol and Drug Abuse Patient Records regulations: The Federal rules restrict any use of the information to criminally investigate or prosecute any alcohol or drug abuse patient.[facility] the event this information is protected by the Federal Confidentiality of Alcohol and Drug Abuse Patient Records regulations: The Federal rules restrict any use of the information to criminally investigate or prosecute any alcohol or drug abuse patient.[facility] the event this information is protected by the Federal Confidentiality of Alcohol and Drug Abuse Patient Records regulations: The Federal rules restrict any use of the information to criminally investigate or prosecute any alcohol or drug abuse patient.[facility] the event this information is protected by the Federal Confidentiality of Alcohol and Drug Abuse Patient Records regulations: The Federal rules restrict any use of the information to criminally investigate or prosecute any alcohol or drug abuse patient.[facility] the event this information is protected by the Federal Confidentiality of Alcohol and Drug Abuse Patient Records regulations: The Federal rules restrict any use of the information to criminally investigate or prosecute any alcohol or drug abuse patient.[facility] the event this information is protected by the Federal Confidentiality of Alcohol and Drug Abuse Patient Records regulations: The Federal rules restrict any use of the information to criminally investigate or prosecute any alcohol or drug abuse patient.[facility] the event this information is protected by the Federal Confidentiality of Alcohol and Drug Abuse Patient Records regulations: The Federal rules restrict any use of the information to criminally investigate or prosecute any alcohol or drug abuse patient.[facility] the event this information is protected by the Federal Confidentiality of Alcohol and Drug Abuse Patient Records regulations: The Federal rules restrict any use of the information to criminally investigate or prosecute any alcohol or drug abuse patient.[facility] the event this information is protected by the Federal Confidentiality of Alcohol and Drug Abuse Patient Records regulations: The Federal rules restrict any use of the information to criminally investigate or prosecute any alcohol or drug abuse patient.[facility] Hospital[facility] the event this information is protected by the Federal Confidentiality of Alcohol and Drug Abuse Patient Records regulations: The Federal rules restrict any use of the information to criminally investigate or prosecute any alcohol or drug abuse patient.[facility] Hospital[facility] the event this information is protected by the Federal Confidentiality of Alcohol and Drug Abuse Patient Records regulations: The Federal rules restrict any use of the information to criminally investigate or prosecute any alcohol or drug abuse patient.[facility] Hospital[facility] the event this information is protected by the Federal Confidentiality of Alcohol and Drug Abuse Patient Records regulations: The Federal rules restrict any use of the information to criminally investigate or prosecute any alcohol or drug abuse patient.[facility] HospitalIn the event this information is protected by the Federal Confidentiality of Alcohol and Drug Abuse Patient Records regulations: The Federal rules restrict any use of the information to criminally investigate or prosecute any alcohol or drug abuse patient.[facility] HospitalIn the event this information is protected by the Federal Confidentiality of Alcohol and Drug Abuse Patient Records regulations: The Federal rules restrict any use of the information to criminally investigate or prosecute any alcohol or drug abuse patient.[facility] HospitalIn the event this information is protected by the Federal Confidentiality of Alcohol and Drug Abuse Patient Records regulations: The Federal rules restrict any use of the information to criminally investigate or prosecute any alcohol or drug abuse patient.[facility] HospitalIn the event this information is protected by the Federal Confidentiality of Alcohol and Drug Abuse Patient Records regulations: The Federal rules restrict any use of the information to criminally investigate or prosecute any alcohol or drug abuse patient.[facility] HospitalIn the event this information is protected by the Federal Confidentiality of Alcohol and Drug Abuse Patient Records regulations: The Federal rules restrict any use of the information to criminally investigate or prosecute any alcohol or drug abuse patient.[facility] HospitalIn the event this information is protected by the Federal Confidentiality of Alcohol and Drug Abuse Patient Records regulations: The Federal rules restrict any use of the information to criminally investigate or prosecute any alcohol or drug abuse patient.[facility] HospitalIn the event this information is protected by the Federal Confidentiality of Alcohol and Drug Abuse Patient Records regulations: The Federal rules restrict any use of the information to criminally investigate or prosecute any alcohol or drug abuse patient.[facility] HospitalIn the event this information is protected by the Federal Confidentiality of Alcohol and Drug Abuse Patient Records regulations: The Federal rules restrict any use of the information to criminally investigate or prosecute any alcohol or drug abuse patient.[facility] HospitalIn the event this information is protected by the Federal Confidentiality of Alcohol and Drug Abuse Patient Records regulations: The Federal rules restrict any use of the information to criminally investigate or prosecute any alcohol or drug abuse patient.[facility] HospitalIn the event this information is protected by the Federal Confidentiality of Alcohol and Drug Abuse Patient Records regulations: The Federal rules restrict any use of the information to criminally investigate or prosecute any alcohol or drug abuse patient.[facility] HospitalIn the event this information is protected by the Federal Confidentiality of Alcohol and Drug Abuse Patient Records regulations: The Federal rules restrict any use of the information to criminally investigate or prosecute any alcohol or drug abuse patient.[facility] the event this information is protected by the Federal Confidentiality of Alcohol and Drug Abuse Patient Records regulations: The Federal rules restrict any use of the information to criminally investigate or prosecute any alcohol or drug abuse patient.[facility] Hospital[facility] the event this information is protected by the Federal Confidentiality of Alcohol and Drug Abuse Patient Records regulations: The Federal rules restrict any use of the information to criminally investigate or prosecute any alcohol or drug abuse patient.[facility] the event this information is protected by the Federal Confidentiality of Alcohol and Drug Abuse Patient Records regulations: The Federal rules restrict any use of the information to criminally investigate or prosecute any alcohol or drug abuse patient.[facility]In the event this information is protected by the Federal Confidentiality of Alcohol and Drug Abuse Patient Records regulations: The Federal rules restrict any use of the information to criminally investigate or prosecute any alcohol or drug abuse patient.[facility] HospitalIn the event this information is protected by the Federal Confidentiality of Alcohol and Drug Abuse Patient Records regulations: The Federal rules restrict any use of the information to criminally investigate or prosecute any alcohol or drug abuse patient.[facility] HospitalIn the event this information is protected by the Federal Confidentiality of Alcohol and Drug Abuse Patient Records regulations: The Federal rules restrict any use of the information to criminally investigate or prosecute any alcohol or drug abuse patient.[facility] HospitalIn the event this information is protected by the Federal Confidentiality of Alcohol and Drug Abuse Patient Records regulations: The Federal rules restrict any use of the information to criminally investigate or prosecute any alcohol or drug abuse patient.[facility] HospitalIn the event this information is protected by the Federal Confidentiality of Alcohol and Drug Abuse Patient Records regulations: The Federal rules restrict any use of the information to criminally investigate or prosecute any alcohol or drug abuse patient.[facility] HospitalIn the event this information is protected by the Federal Confidentiality of Alcohol and Drug Abuse Patient Records regulations: The Federal rules restrict any use of the information to criminally investigate or prosecute any alcohol or drug abuse patient.[facility] the event this information is protected by the Federal Confidentiality of Alcohol and Drug Abuse Patient Records regulations: The Federal rules restrict any use of the information to criminally investigate or prosecute any alcohol or drug abuse patient.[facility]In the event this information is protected by the Federal Confidentiality of Alcohol and Drug Abuse Patient Records regulations: The Federal rules restrict any use of the information to criminally investigate or prosecute any alcohol or drug abuse patient.[facility] the event this information is protected by the Federal Confidentiality of Alcohol and Drug Abuse Patient Records regulations: The Federal rules restrict any use of the information to criminally investigate or prosecute any alcohol or drug abuse patient.[facility]In the event this information is protected by the Federal Confidentiality of Alcohol and Drug Abuse Patient Records regulations: The Federal rules restrict any use of the information to criminally investigate or prosecute any alcohol or drug abuse patient.[facility]In the event this information is protected by the Federal Confidentiality of Alcohol and Drug Abuse Patient Records regulations: The Federal rules restrict any use of the information to criminally investigate or prosecute any alcohol or drug abuse patient.[facility]In the event this information is protected by the Federal Confidentiality of Alcohol and Drug Abuse Patient Records regulations: The Federal rules restrict any use of the information to criminally investigate or prosecute any alcohol or drug abuse patient.[facility] the event this information is protected by the Federal Confidentiality of Alcohol and Drug Abuse Patient Records regulations: The Federal rules restrict any use of the information to criminally investigate or prosecute any alcohol or drug abuse patient.[facility] HospitalIn the event this information is protected by the Federal Confidentiality of Alcohol and Drug Abuse Patient Records regulations: The Federal rules restrict any use of the information to criminally investigate or prosecute any alcohol or drug abuse patient.[facility] HospitalIn the event this information is protected by the Federal Confidentiality of Alcohol and Drug Abuse Patient Records regulations: The Federal rules restrict any use of the information to criminally investigate or prosecute any alcohol or drug abuse patient.[facility]In the event this information is protected by the Federal Confidentiality of Alcohol and Drug Abuse Patient Records regulations: The Federal rules restrict any use of the information to criminally investigate or prosecute any alcohol or drug abuse patient.[facility] HospitalIn the event this information is protected by the Federal Confidentiality of Alcohol and Drug Abuse Patient Records regulations: The Federal rules restrict any use of the information to criminally investigate or prosecute any alcohol or drug abuse patient.[facility] Care Teams (unrecognized sec tion and content) Lead Technologist In Cytogenetics Relationship Specialty Start Date End Date David Caputo MD [address] [place] [address] PCP - General Family Practice 12/13/19 Jose Segura DO Physician Hematology/Oncology 07/13/19 Rola Gordon, MECHANICAL ENGINEERING OFFICER.[employer] [address] [facility] [place] [address] Nurse Practitioner Hematology/Oncology 07/13/19 Lead Technologist In Cytogenetics Relationship Specialty Start Date End Date David Caputo MD [address] [place] [address] PCP - General Family Practice 12/13/19 Jose Segura DO Physician Hematology/Oncology 07/13/19 Rola Gordon, MECHANICAL ENGINEERING OFFICER.[employer] [address] [facility] [place] [address] Nurse Practitioner Hematology/Oncology 07/13/19 Lead Technologist In Cytogenetics Relationship Specialty Start Date End Date David Caputo MD [address] [place] [address] PCP - General Family Practice 12/13/19 Jose Segura DO Physician Hematology/Oncology 07/13/19 Rola Gordon, MECHANICAL ENGINEERING OFFICER.[employer] [address] [facility] [place] [address] Nurse Practitioner Hematology/Oncology 07/13/19 Lead Technologist In Cytogenetics Relationship Specialty Start Date End Date David Caputo MD [address] [facility] [place] [address] PCP - General Family Practice 12/13/19 Jose Segura, DO Physician Hematology/Oncology 07/13/19 Rola Gordon, MECHANICAL ENGINEERING OFFICER.[employer] [address] [facility] [place] [address] Nurse Practitioner Hematology/Oncology 07/13/19 Lead Technologist In Cytogenetics Relationship Specialty Start Date End Date David Caputo MD [address] [facility] [place] [address] PCP - General Family Practice 12/13/19 Jose Segura, DO Physician Hematology/Oncology 07/13/19 Rola Gordon, MECHANICAL ENGINEERING OFFICER.[employer] [address] [facility] [place] [address] Nurse Practitioner Hematology/Oncology 07/13/19 Lead Technologist In Cytogenetics Relationship Specialty Start Date End Date David Caputo MD [address] [facility] [place] [address] PCP - General Family Practice 12/13/19 Jose Segura DO Physician Hematology/Oncology 07/13/19 Rola Gordon, MECHANICAL ENGINEERING OFFICER.[employer] [address] [facility] [place] [address] Nurse Practitioner Hematology/Oncology 07/13/19 Lead Technologist In Cytogenetics Relationship Specialty Start Date End Date David Caputo MD [address] [place] [address] PCP - General Family Practice 12/13/19 Jose Segura DO Physician Hematology/Oncology 07/13/19 Rola Gordon, MECHANICAL ENGINEERING OFFICER.[employer] [address] [facility] [place] [address] Nurse Practitioner Hematology/Oncology 07/13/19 Lead Technologist In Cytogenetics Relationship Specialty Start Date End Date David Caputo MD [address] [place] [address] PCP - General Family Practice 12/13/19 Jose Segura DO Physician Hematology/Oncology 07/13/19 Rola Gordon, MECHANICAL ENGINEERING OFFICER.[employer] [address] [facility] [place] [address] Nurse Practitioner Hematology/Oncology 07/13/19 Lead Technologist In Cytogenetics Relationship Specialty Start Date End Date David Caputo MD [address] [facility] [place] [address] PCP - General Family Practice 12/13/19 Jose Segura DO Physician Hematology/Oncology 07/13/19 Rola Gordon, MECHANICAL ENGINEERING OFFICER.[employer] [address] [facility] [place] [address] Nurse Practitioner Hematology/Oncology 07/13/19 Lead Technologist In Cytogenetics Relationship Specialty Start Date End Date David Caputo MD [address] [facility] [place] [address] PCP - General Family Practice 12/13/19 Jose Segura DO Physician Hematology/Oncology 07/13/19 Rola Gordon, MECHANICAL ENGINEERING OFFICER.[facility] [address] [facility] [place] [address] Nurse Practitioner Hematology/Oncology 07/13/19 Lead Technologist In Cytogenetics Relationship Specialty Start Date End Date David Caputo MD [address] [facility] [place] [address] PCP - General Family Practice 12/13/19 Jose Segura DO Physician Hematology/Oncology 07/13/19 Rola Gordon, MECHANICAL ENGINEERING OFFICER.[facility] [address] [facility] [place] [address] Nurse Practitioner Hematology/Oncology 07/13/19 Lead Technologist In Cytogenetics Relationship Specialty Start Date End Date David Caputo MD [address] [place] [address] PCP - General Family Medicine 12/13/19 Jose Segura DO Physician Hematology/Oncology 07/13/19 Rola Gordon, MECHANICAL ENGINEERING OFFICER.[employer] [address] [facility] [place] [address] Nurse Practitioner Hematology/Oncology 07/13/19 Lead Technologist In Cytogenetics Relationship Specialty Start Date End Date David Caputo MD [address] [facility] [place] [address] PCP - General Family Medicine 12/13/19 Jose Segura DO Physician Hematology/Oncology 07/13/19 Rola Gordon, MECHANICAL ENGINEERING OFFICER.[employer] [address] [facility] [place] [address] Nurse Practitioner Hematology/Oncology 07/13/19 Lead Technologist In Cytogenetics Relationship Specialty Start Date End Date David Caputo MD [address] [place] [address] PCP - General Family Medicine 12/13/19 Jose Segura DO Physician Hematology/Oncology 07/13/19 Rola Gordon, MECHANICAL ENGINEERING OFFICER.[facility] [address] [facility] [place] [address] Nurse Practitioner Hematology/Oncology 07/13/19 Lead Technologist In Cytogenetics Relationship Specialty Start Date End Date David Caputo MD [address] [facility] [place] [address] PCP - General Family Medicine 12/13/19 Jose Segura DO Physician Hematology/Oncology 07/13/19 Rola Gordon, MECHANICAL ENGINEERING OFFICER.[address] [place] [address] Nurse Practitioner Hematology/Oncology 07/13/19 Lead Technologist In Cytogenetics Relationship Specialty Start Date End Date David Caputo MD [address] [place] [address] PCP - General Family Medicine 12/13/19 Jose Segura DO Physician Hematology/Oncology 07/13/19 Rola Gordon, MECHANICAL ENGINEERING OFFICER.[facility] [address] [facility] [place] [address] Nurse Practitioner Hematology/Oncology 07/13/19 Lead Technologist In Cytogenetics Relationship Specialty Start Date End Date David Caputo MD [address] [facility] [place] [address] PCP - General Family Medicine 12/13/19 Jose Segura DO Physician Hematology/Oncology 07/13/19 Rola Gordon, MECHANICAL ENGINEERING OFFICER.[employer] [address] [facility] [place] [address] Nurse Practitioner Hematology/Oncology 07/13/19 Lead Technologist In Cytogenetics Relationship Specialty Start Date End Date David Caputo MD [address] [facility] [place] [address] PCP - General Family Medicine 12/13/19 Jose Segura DO Physician Hematology/Oncology 07/13/19 Rola Gordon, MECHANICAL ENGINEERING OFFICER.[employer] [address] [facility] [place] [address] Nurse Practitioner Hematology/Oncology 07/13/19 Lead Technologist In Cytogenetics Relationship Specialty Start Date End Date David Caputo MD [address] [facility] [place] [address] PCP - General Family Medicine 12/13/19 Jose Segura DO Physician Hematology/Oncology 07/13/19 Rola Gordon, MECHANICAL ENGINEERING OFFICER.[employer] [address] [facility] [place] [address] Nurse Practitioner Hematology/Oncology 07/13/19 Lead Technologist In Cytogenetics Relationship Specialty Start Date End Date David Caputo MD [address] [facility] [place] [address] PCP - General Family Medicine 12/13/19 Jose Segura DO Physician Hematology/Oncology 07/13/19 Rola Gordon, MECHANICAL ENGINEERING OFFICER.[facility] [address] [facility] [place] [address] Nurse Practitioner Hematology/Oncology 07/13/19 Lead Technologist In Cytogenetics Relationship Specialty Start Date End Date David Caputo MD [address] [place] [address] PCP - General Family Medicine 12/13/19 Jose Segura DO Physician Hematology/Oncology 07/13/19 Rola Gordon, MECHANICAL ENGINEERING OFFICER.[employer] [address] [facility] [place] [address] Nurse Practitioner Hematology/Oncology 07/13/19 Lead Technologist In Cytogenetics Relationship Specialty Start Date End Date David Caputo MD [address] [place] [address] PCP - General Family Medicine 12/13/19 Jose Segura DO Physician Hematology/Oncology 07/13/19 Rola Gordon, MECHANICAL ENGINEERING OFFICER.[employer] [address] [facility] [place] [address] Nurse Practitioner Hematology/Oncology 07/13/19 Lead Technologist In Cytogenetics Relationship Specialty Start Date End Date David Caputo MD [address] [facility] [place] [address] PCP - General Family Medicine 12/13/19 Jose Segura DO Physician Hematology/Oncology 07/13/19 Roal Gordon, MECHANICAL ENGINEERING OFFICER.[employer] [address] [facility] [place] [address] Nurse Practitioner Hematology/Oncology 07/13/19 Lead Technologist In Cytogenetics Relationship Specialty Start Date End Date David Caputo MD [address] [place] [address] PCP - General Family Medicine 12/13/19 Jose Segura DO Physician Hematology/Oncology 07/13/19 Rola Gordon, MECHANICAL ENGINEERING OFFICER.[employer] [address] [facility] [place] [address] Nurse Practitioner Hematology/Oncology 07/13/19 Lead Technologist In Cytogenetics Relationship Specialty Start Date End Date David Caputo MD [address] [place] [address] PCP - General Family Medicine 12/13/19 Jose Segura DO Physician Hematology/Oncology 07/13/19 Rola Gordon, MECHANICAL ENGINEERING OFFICER.[employer] [address] [facility] [place] [address] Nurse Practitioner Hematology/Oncology 07/13/19 Lead Technologist In Cytogenetics Relationship Specialty Start Date End Date David Caputo MD [address] [facility] [place] [address] PCP - General Family Medicine 12/13/19 Jose Segura DO Physician Hematology/Oncology 07/13/19 Rola Gordon, MECHANICAL ENGINEERING OFFICER.[employer] [address] [place] [address] [place] [address] Nurse Practitioner Hematology/Oncology 07/13/19 Lead Technologist In Cytogenetics Relationship Specialty Start Date End Date David Caputo MD [address] [facility] [place] [address] PCP - General Family Medicine 12/13/19 Jose Segura DO Physician Hematology/Oncology 07/13/19 Rola Gordon, MECHANICAL ENGINEERING OFFICER.[employer] [address] [facility] [place] [address] Nurse Practitioner Hematology/Oncology 07/13/19 Team Status: Active Member Role Status Dates David Caputo MD Primary Care Provider Active Team Status: Inactive Member Role Status Dates David Caputo MD Primary Care Provider Active Adriane Espitia MD Attending Provider Active Lead Technologist In Cytogenetics Relationship Specialty Start Date End Date David Caputo MD [address] [facility] [place] [address] PCP - General Family Medicine 12/13/19 Jose Segura DO Physician Hematology/Oncology 07/13/19 Rola Gordon, MECHANICAL ENGINEERING OFFICER.[employer] [address] [facility] [place] [address] Nurse Practitioner Hematology/Oncology 07/13/19 Lead Technologist In Cytogenetics Relationship Specialty Start Date End Date David Caputo MD [address] [facility] [place] [address] PCP - General Family Medicine 12/13/19 Jose Segura DO Physician Hematology/Oncology 07/13/19 Rola Gordon, MECHANICAL ENGINEERING OFFICER.[employer] [address] [facility] [place] [address] Nurse Practitioner Hematology/Oncology 07/13/19 Lead Technologist In Cytogenetics Relationship Specialty Start Date End Date David Caputo MD [address] [facility] [place] [address] PCP - General Family Medicine 12/13/19 Jose Segura DO Physician Hematology/Oncology 07/13/19 Rola Gordon, MECHANICAL ENGINEERING OFFICER.[employer] [address] [facility] [place] [address] Nurse Practitioner Hematology/Oncology 07/13/19 Lead Technologist In Cytogenetics Relationship Specialty Start Date End Date David Caputo MD [address] [facility] [place] [address] PCP - General Family Medicine 12/13/19 Jose Segura DO Physician Hematology/Oncology 07/13/19 Rola Gordon, MECHANICAL ENGINEERING OFFICER.[employer] [address] [facility] [place] [address] Nurse Practitioner Hematology/Oncology 07/13/19 Lead Technologist In Cytogenetics Relationship Specialty Start Date End Date David Caputo MD [address] [facility] [place] [address] PCP - General Family Medicine 12/13/19 Jose Segura DO Physician Hematology/Oncology 07/13/19 Rola Gordon, MECHANICAL ENGINEERING OFFICER.[employer] [address] [facility] [place] [address] Nurse Practitioner Hematology/Oncology 07/13/19 Lead Technologist In Cytogenetics Relationship Specialty Start Date End Date David Caputo MD [address] [facility] [place] [address] PCP - General Family Medicine 12/13/19 Jose Segura DO Physician Hematology/Oncology 07/13/19 Rola Gordon, MECHANICAL ENGINEERING OFFICER.[employer] [address] [place] [address] Nurse Practitioner Hematology/Oncology 07/13/19 Lead Technologist In Cytogenetics Relationship Specialty Start Date End Date David Caputo MD [address] [facility] [place] [address] PCP - General Family Medicine 12/13/19 Jose Segura DO Physician Hematology/Oncology 07/13/19 Rola Gordon, MECHANICAL ENGINEERING OFFICER.[employer] [address] [facility] [place] [address] Nurse Practitioner Hematology/Oncology 07/13/19 Reason for Visit [...] deficiency anemia type Zahra Buitrago MD [address] [facility] [place] [address] Zelalem Treat Zhane [address] [facility] [place] [address] Referral ID Status Reason Start Date Expiration Date V isits Requested Visits Authorized [id number] Authorized 03/08/2022 06/06/2022 99 99 Reason Onset [...] BE BASED ON THE PRIMARY CLINICAL RECORDS. [employer] provides no warranty or guarantee of the accuracy or completeness of information in this document.
--- NOTE | 2023-07-16 06:49 | PC.NURSE ---
Patient had large stool incontinence and vomited a large amount onto floor. He was lying on his side and was not able to press call button in time for assistance. Staff spent a large amount of time changing linens, cleaning patient up and cleaning the patient himself. He feels better at this time and is not feeling nauseus or complaining of abdominal pain.
--- NOTE | 2023-07-16 08:01 | RESP.RT ---
titrated down to 1L
[2023-07-16] MEDS: ENOXAPARIN SODIUM 40 MG/0.4 ML SYRINGE SUBQ (09:05)
[2023-07-16] MEDS: METRONIDAZOLE/SODIUM CHLORIDE 500 MG/100 ML PREMIX 100 MG IV ×2 (09:06→15:24)
[2023-07-16 09:42] LABS: Lactate/Lactic Acid 1.2 mmol/L (0.4-2.0)
--- NOTE | 2023-07-16 10:50 | CM.NOTE ---
Rounds made with Dr. Oliver pt receiving PRBC's at this time and will have general surgeon to consult for further recommendations.
[2023-07-16 11:38] LABS: Glucometer 142 mg/dL (74-106)
[2023-07-16] MEDS: LACTATED RINGER'S SOLUTION 1,000 ML 125 ML IV (11:39)
--- NOTE | 2023-07-16 11:46 | P.HP_ITS ---
H&P: HPI History of Present Illness Chief complaint: mental status Narrative: 68-year-old male was brought over by EMS for generalized weakness and hypotension. Patient has prior hx of gastric cancer s/p whipple procedure about 4 years ago. He was at home and has been nauseous, throwing up with generalized abdominal pain x 1-2 days. He also reports generalized weakness. He was admitted to our facility 01/18 for generalized weakness and SIRS (no source was identified). Workup in the Emergency Department revealed mild hypotension, likely secondary to hypovolemia due to anemia and dehydration. CT scan also revealed possible fecal impaction in rectum, associated proctitis and possible right LL Pneumonia. Patient denies any respiratory symptoms denies cough, fever. Poor and unreliable historian and most of the information I have is based on review of old chart and records. He is unsure of the last time, he had EGD, colonoscopy but had been receiving IV iron as outpatient quite possibly due to malabsorption. There was also a concern for metastatic lymphadenopathy and relapse of his gastric cancer based on imaging for which he was supposed to follow up with [facility] as outpatient but I am not sure if he actually did that. Overnight, he had multiple bowel movements, stool was normal colored but it was mixed with fresh blood. No active or overt bleeding noted. Review of Systems ROS Status of ROS 10 or more systems reviewed and unremark able except as noted in history and below [facility] Medical History (Updated 07/16/23 @ 12:10 by Shaikh Melody MD) Chronic HFrEF (heart failure with reduced ejection fraction) ?I50.22 - Chronic systolic (congestive) heart failure (ICD-10) H/O malignant neoplasm of stomach ?Z85.028 - Personal history of other malignant neoplasm of stomach (ICD-10) Generalized weakness ?R53.1 - Weakness (ICD-10) Malnutrition ?E46 - Unspecified protein-calorie malnutrition (ICD-10) Afib ?I48.91 - Unspecified atrial fibrillation (ICD-10) Depression with anxiety ?F41.8 - Other specified anxiety disorders (ICD-10) Anemia ?D64.9 - Anemia, unspecified (ICD-10) Type 2 diabetes mellitus ?E11.9 - Type 2 diabetes mellitus without complications (ICD-10) CAD (coronary artery disease) ?I25.10 - Atherosclerotic heart disease of marshall coronary artery without angina pectoris (ICD-10) Carotid artery calcification ?I65.29 - Occlusion and stenosis of unspecified carotid artery (ICD-10) CHF (congestive heart failure) ?I50.9 - Heart failure, unspecified (ICD-10) Cardiomyopathy ?I42.9 - Cardiomyopathy, unspecified (ICD-10) Anxiety ?F41.9 - Anxiety disorder, unspecified (ICD-10) Myocardial infarct ?I21.9 - Acute myocardial infarction, unspecified (ICD-10) Stomach cancer ?C16.9 - Malignant neoplasm of stomach, unspecified (ICD-10) Surgical History 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) ?Z90.49 - Acquired absence of other specified parts of digestive tract (ICD- 10) History of coronary artery stent placement ?Z95.5 - Presence of coronary angioplasty implant and graft (ICD-10) Family History Father Family history of COPD (chronic obstructive pulmonary disease) Family history of CHF (congestive heart failure) Mother Family history of diabetes mellitus Social History Within the past year, how often did you have a drink containing alcohol: monthly or less Within the past year, how many standard drinks containing alcohol did you have on a typical day: 1 or 2 Within the past year, how often did you have six or more drinks on one occasion: never Total score: 0 Score interpretation: A score less than 4 is consistent with normal alcohol consumption. 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 Known occupational exposures/hazards: Yes Known occupational exposures/hazards details: dust Highest level of school completed/degree received: 12th grade, no diploma Are you now , , , , never or living with a partner: In a typical week, how many times do you talk on the telephone with family, friends, or neighbors: 3 or more times per week How often do you get together with friends or relatives: 3 or more times per week How often do you attend mandaeism or orthodox services: never Do you belong to any clubs or organizations such as mandaeism groups unions, [email or web address] or athletic groups, or school groups: no Total score: 1 Score interpretation: A score of less than or equal to 1 indicates the most socially isolated. Little interest or pleasure in doing things: several days Feeling down, depressed, or hopeless: several days Feel stressed/tense/nervous/anxious/difficulty sleeping: not at all Due to disability, difficulty making decisions: No Meds Home Medications and Allergies Home Medications Medication Instructions Recorded Confirmed Type alprazolam 0.25 mg tablet 0.25 mg PO BID 12/22/22 01/19/23 History apixaban 2.5 mg tablet (Eliquis) 2.5 mg PO BID 12/22/22 01/19/23 History atorvastatin 40 mg tablet 40 mg PO QPM 12/22/22 01/19/23 History baclofen 5 mg tablet 5 mg PO BID PRN muscle spasm 12/22/22 01/20/23 History fluoxetine 20 mg capsule 20 mg PO DAILY 12/22/22 01/19/23 History folic acid 1 mg tablet 1 mg PO DAILY 12/22/22 01/19/23 History bkziqe-haymgifd-scdqpfy 2 cap PO TID 12/22/22 01/21/23 History 24,000-76,000-120,000 unit capsule,delayed rel (Creon) metoclopramide HCl 10 mg tablet 10 mg PO TID 12/22/22 01/19/23 History metoprolol succinate 25 mg capsule 25 mg PO DAILY 12/22/22 01/19/23 History sprinkle, ext. release 24 hr sitagliptin phosphate 50 1 tab PO BID 12/22/22 01/19/23 History mg-metformin 1,000 mg tablet (Janumet) baclofen 10 mg tablet 5 mg PO BID PRN muscle spasm 01/19/23 01/20/23 History mirtazapine 15 mg tablet 15 mg PO .QHS PRN Not Specified 01/19/23 01/20/23 History Allergies Allergy/AdvReac Type Severity Reaction Status Date / Time No Known Drug Allergies Allergy Verified 07/16/23 00:25 Exam Constitutional Vital Signs, click to edit/add: Last Vital Signs Temp 98.8 F 07/16/23 11:08 Pulse 105 H 07/16/23 11:10 Resp 31 H 07/16/23 11:10 BP 110/71 07/16/23 11:08 Pulse Ox 99 07/16/23 11:10 O2 Del Method Room Air 07/16/23 11:08 O2 Flow Rate 2 07/16/23 08:01 Documenting provider has reviewed patient's vital signs: yes General appearance: cooperative, comfortable, lethargic, ill appearing and frail appearing Nutritional appearance: cachectic Orientation/consciousness: Yes awake and Yes oriented to person HENMT Common normals: normocephalic and head/scalp atraumatic Respiratory Common normals: no use of accessory muscles and clear to auscultation bilaterally Effort & inspection: able to speak in complete sentences and decreased respiratory effort Cardio Common normals: no JVD, regular rate, regular rhythm, S1 normal heart sound and S2 normal heart sound GI Common normals: Normal to inspection, nondistended, normoactive bowel sounds present, soft to palpation, non-tender and no hepatosplenomegaly Extremity Common normals: normal to inspection, full ROM and no clubbing, cyanosis or edema Neuro Common normals: oriented x3, moves all extremities and no focal motor deficits Sensorium/orientation: awake, alert and lethargic Speech: speech normal (weak voice. ) Gait (neuro): unable to assess gait Psych Common normals: denies homicidal ideation and denies suicidal ideation Attitude: calm Speech: slow Thought process: disorganized Attention/concentration: attention grossly intact Results Labs Labs: Short CBC 07/16/23 Range/Units 00:59 WBC 12.8 H (4.0-11.0) 10^3/uL Hgb 6.0 L* (14.0-18.0) g/dL Hct 20.0 L* (42.0-54.0) % Plt Count 313 (150-450) 10^3/uL BMP 07/16/23 00:59 Sodium 140 Potassium 4.4 Chloride 107 Carbon Dioxide 15.2 L BUN 51.0 H Creatinine 1.11 Glucose 183 H Calcium 8.2 L Liver Function 07/16/23 Range/Units 00:59 Total Bilirubin 0.1 L (0.2-1.0) mg/dL AST 15 (15-37) U/L ALT 18 (16-63) U/L Alkaline Phosphatase 95 (46-116) U/L Albumin 2.4 L (3.4-5.0) g/dL Assessment and Plan Assessment and Plan (1) GI (gastrointestinal bleed): Assessment and Plan: Baseline hemoglobin is 8-9. Presented with hemoglobin of six. Hemoccult is positive. Bright red blood mixed with stool noted. Hold Eliquis. Patient is receiving two units of packed red blood cells. Follow- up hemoglobin and hematocrit after transfusion. Continue with IV Protonix forty twice a day. Gen. surgery on board for possible upper gastrointestinal and/or colonoscopy. Qualifiers: GI bleed type/associated pathology: unspecified gastrointestinal hemorrhage type Qualified Code(s): K92.2 - Gastrointestinal hemorrhage, unspecified (2) Proctitis: Assessment and Plan: Proctitis based on CT scan. IV rocephin/flagly. Monitor. (3) RLL pneumonia: Assessment and Plan: Possible right lower lobe infiltrate on CT. No respiratory symptoms. Patient is being treated for proctitis with IV Rocephin and I will also adequately cover for possible community-acquired pneumonia if he truly does have it Monitor respiratory status. Continue with antibiotics Qualifiers: Pneumonia type: due to unspecified organism Qualified Code(s): J18.9 - Pneumonia, unspecified organism (4) Generalized weakness: Assessment and Plan: Multifactorial and likely secondary to severe malnutrition, dehydration, anemia, underlying malignancy. Review gentle IV hydration. PT/OT evaluation. Blood transfusion keep hemoglobin above seven. Added ensure. Will need outpatient f/u with Oncology. (5) Fecal impaction: Assessment and Plan: resolved. Had multiple bowel movements overnight. (6) CAD (coronary artery disease): Assessment and Plan: s/p PCI, appears to be stable form that point of view. Qualifiers: Coronary Disease-Associated Artery/Lesion type: marshall artery [place] vs. transplanted heart: marshall heart Associated angina: without angina Qualified Code(s): I25.10 - Atherosclerotic heart disease of marshall coronary artery without angina pectoris (7) Chronic HFrEF (heart failure with reduced ejection fraction): Assessment and Plan: On Toprol only. (8) Afib: Assessment and Plan: In NSR. Eliquis on hold due to GI Bleed. Qualifiers: Atrial fibrillation type: paroxysmal Qualified Code(s): I48.0 - Paroxysmal atrial fibrillation (9) H/O malignant neoplasm of stomach: Assessment and Plan: s/p whipples and likely has relapse based on review of CT scan. He was supposed to f/u with Oncology. Unsure if he ever did or not after last hospital admission in 01/18 (10) Malnutrition: Assessment and Plan: Severe malnutrition, underweight, decreased PO intake, low albumin and protein Added ensure to his diet. Qualifiers: Malnutrition type: protein-calorie malnutrition Protein-calorie malnutrition severity: severe Qualified Code(s): E43 - Unspecified severe protein-calorie malnutrition Plan Poor prognosis, at high risk of poor outcome due to underlying comorbidities. Monitor H&H, c/w IV hydration, IV abx. Monitor closely.
[2023-07-16 12:05] LABS: Basophils Percent Auto 0.1 % (0.2-2.0); Immature Granulocytes Abs Auto 0.03 10^3/uL (0.00-0.03); Immature Granulocytes Pct Auto 0.3 % (0.0-0.5); Lymphocytes Absolute Auto 0.9 10^3/uL (1.2-3.8); Lymphocytes Percent Auto 9.7 % (20.5-60.0); Mean Corpuscular Hemoglobin 31.7 pg (25.9-34.0); Mean Corpuscular Volume 93.3 fL (80.0-94.0); Monocytes Absolute Auto 0.5 10^3/uL (0.3-0.8); Monocytes Percent Auto 5.1 % (1.7-12.0); Neutrophils Absolute Auto 7.8 10^3/uL (1.4-6.5); Neutrophils Percent Auto 84.8 % (43.0-75.0); Platelet Count 229 10^3/uL (150-450); Red Blood Count 2.52 10^6/uL (4.70-6.10); Red Cell Distribution Width 15.8 % (11.0-15.0); White Blood Count 9.2 10^3/uL (4.0-11.0)
[2023-07-16 12:07] LABS: Hematocrit 23.5 % (42.0-54.0)
--- NOTE | 2023-07-16 12:13 | CM.NOTE ---
Important message From Medicare discussed with pt, pt verbalizes understanding and signs paper. Original given to pt and copy placed on pt's chart.
[2023-07-16 12:41] LABS: Percent Iron Saturation 50.6 %
[2023-07-16 12:43] LABS: Alanine Aminotransferase 19 U/L (16-63); Albumin Globulin Ratio 0.7; Albumin Level 2.2 g/dL (3.4-5.0); Alkaline Phosphatase 80 U/L (46-116); Anion Gap 17.4; Aspartate Amino Transferase 15 U/L (15-37); BUN Creatinine Ratio 49.5; Bilirubin Total 0.5 mg/dL (0.2-1.0); Calcium 7.5 mg/dL (8.5-10.1); Carbon Dioxide 17.9 mmol/L (21.0-32.0); Chloride 107 mmol/L (98-107); Estimated GFR (African America >60 (>=60); Estimated GFR (Non-African Ame >60 (>=60); Globulin 3.2 g/dL; Glucose 141 mg/dL (74-106); Potassium 4.3 mmol/L (3.5-5.1); Sodium 138 mmol/L (136-145); Total Protein 5.4 g/dL (6.4-8.2)
--- NOTE | 2023-07-16 13:16 | P.GSCN_ITS ---
History of Present Illness Consult details Consult date: 07/16/23 Reason for consult: other Requesting physician: Shaikh Melody Narrative: Geraldo Whitehead is a 68-year-old male who was admitted to the hospital for hypotension and weakness and anemia. He has a long-standing history of stomach cancer being treated at the [facility] about five years ago according to his son and daughter who were at the bedside. Old charts were also reviewed. It does not appear that he has followed up with medical oncology within the past year but has an appointment upcoming according to the family. He had nausea and vomiting yesterday but no hematemesis and a small amount of rectal bleeding. He takes eloquis daily for atrial fibrillation. Nurse reported brown stool mixed with blood. Patient is a poor historian and so are the son and daughter. According to the patient he can't walk since last December due to weakness and he had a hospitalization here in December 2022 which time he went [place] [facility] for short period of time but now lives with his son and daughter.me to them he resides in a wheelchair most of the time and is unable to ambulate on his own. He states that he has a poor appetite. He is anemic with a hemoglobin of around 6 g and can't remember if his had a CT EGD or colonoscopy when the last time those procedures were performed. He admits to abdominal pain but does not appear uncomfortable. He received at least one unit of packed red blood cells for the anemia. Review of Systems ROS Status of ROS 10 or more systems reviewed and unremark able except as noted in history and below and other (family and patient are poor historians.) [facility] Medical History Chronic HFrEF (heart failure with reduced ejection fraction) ?I50.22 - Chronic systolic (congestive) heart failure (ICD-10) H/O malignant neoplasm of stomach ?Z85.028 - Personal history of other malignant neoplasm of stomach (ICD-10) Generalized weakness ?R53.1 - Weakness (ICD-10) Malnutrition ?E46 - Unspecified protein-calorie malnutrition (ICD-10) Afib ?I48.91 - Unspecified atrial fibrillation (ICD-10) Depression with anxiety ?F41.8 - Other specified anxiety disorders (ICD-10) Anemia ?D64.9 - Anemia, unspecified (ICD-10) Type 2 diabetes mellitus ?E11.9 - Type 2 diabetes mellitus without complications (ICD-10) CAD (coronary artery disease) ?I25.10 - Atherosclerotic heart disease of nez perce coronary artery without angina pectoris (ICD-10) Carotid artery calcification ?I65.29 - Occlusion and stenosis of unspecified carotid artery (ICD-10) CHF (congestive heart failure) ?I50.9 - Heart failure, unspecified (ICD-10) Cardiomyopathy ?I42.9 - Cardiomyopathy, unspecified (ICD-10) Anxiety ?F41.9 - Anxiety disorder, unspecified (ICD-10) Myocardial infarct ?I21.9 - Acute myocardial infarction, unspecified (ICD-10) Stomach cancer ?C16.9 - Malignant neoplasm of stomach, unspecified (ICD-10) Surgical History 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) ?Z90.49 - Acquired absence of other specified parts of digestive tract (ICD- 10) History of coronary artery stent placement ?Z95.5 - Presence of coronary angioplasty implant and graft (ICD-10) Family History Father Family history of COPD (chronic obstructive pulmonary disease) Family history of CHF (congestive heart failure) Mother Family history of diabetes mellitus Social History Within the past year, how often did you have a drink containing alcohol: monthly or less Within the past year, how many standard drinks containing alcohol did you have on a typical day: 1 or 2 Within the past year, how often did you have six or more drinks on one occasion: never Total score: 0 Score interpretation: A score less than 4 is consistent with normal alcohol consumption. 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 Known occupational exposures/hazards: Yes Known occupational exposures/hazards details: dust Highest level of school completed/degree received: 12th grade, no diploma Are you now , , , , never or living with a partner: In a typical week, how many times do you talk on the telephone with family, friends, or neighbors: 3 or more times per week How often do you get together with friends or relatives: 3 or more times per week How often do you attend baptism or zoroastrian services: never Do you belong to any clubs or organizations such as baptism groups unions, fraternal or athletic groups, or school groups: no Total score: 1 Score interpretation: A score of less than or equal to 1 indicates the most socially isolated. Little interest or pleasure in doing things: several days Feeling down, depressed, or hopeless: several days Feel stressed/tense/nervous/anxious/difficulty sleeping: not at all Due to disability, difficulty making decisions: No Meds Home Medications and Allergies Home Medications Medication Instructions Recorded Confirmed Type alprazolam 0.25 mg tablet 0.25 mg PO BID 12/22/22 07/16/23 History apixaban 2.5 mg tablet (Eliquis) 2.5 mg PO BID 12/22/22 07/16/23 History atorvastatin 40 mg tablet 20 mg PO QPM 12/22/22 07/16/23 History baclofen 5 mg tablet 5 mg PO BID PRN muscle spasm 12/22/22 07/16/23 History fluoxetine 20 mg capsule 40 mg PO DAILY 12/22/22 07/16/23 History folic acid 1 mg tablet 1 mg PO DAILY 12/22/22 07/16/23 History amfjfk-tqglcrjb-elkvzlh 2 cap PO TID 12/22/22 07/16/23 History 24,000-76,000-120,000 unit capsule,delayed rel (Creon) metoclopramide HCl 10 mg tablet 10 mg PO TID 12/22/22 07/16/23 History metoprolol succinate 25 mg capsule 25 mg PO DAILY 12/22/22 07/16/23 History sprinkle, ext. release 24 hr sitagliptin phosphate 50 1 tab PO BID 12/22/22 07/16/23 History mg-metformin 1,000 mg tablet (Janumet) baclofen 10 mg tablet 5 mg PO TID PRN muscle spasm 01/19/23 07/16/23 History mirtazapine 15 mg tablet 15 mg PO .QHS PRN Not Specified 01/19/23 07/16/23 History Allergies Allergy/AdvReac Type Severity Reaction Status Date / Time No Known Drug Allergies Allergy Verified 07/16/23 00:25 Exam Constitutional Vital Signs, click to edit/add: Last Vital Signs Temp 98.8 F 07/16/23 11:08 Pulse 104 H 07/16/23 11:53 Resp 23 07/16/23 11:50 BP 110/71 07/16/23 11:34 Pulse Ox 98 07/16/23 11:51 O2 Del Method Room Air 07/16/23 11:51 O2 Flow Rate 2 07/16/23 08:01 Documenting provider has reviewed patient's vital signs: yes Common normals: no apparent distress and oriented x3 General appearance: cooperative, disheveled, frail appearing and appears older than stated age Nutritional appearance: cachectic Orientation/consciousness: Yes awake, Yes oriented to person, Yes oriented to place and Yes oriented to time GI Common normals: Normal to inspection, nondistended, normoactive bowel sounds present, soft to palpation and no masses (? Mass right lower quadrant of the abdomen will nontender) Inspection: normal to inspection Palpation: soft Rectal Exam - Male: normal sphincter tone and prostate normal Other: brown green stool seen on gloved finger no fecal impaction noted no blood noted on gloved finger. Neuro Common normals: oriented x3 Results Labs Labs: Abnormal lab results 07/16/23 07/16/23 07/16/23 Range/Units 00:59 02:05 02:08 WBC 12.8 H (4.0-11.0) 10^3/uL RBC 1.86 L (4.70-6.10) 10^6/uL Hgb 6.0 L* (14.0-18.0) g/dL Hct 20.0 L* (42.0-54.0) % MCV 107.5 H (80.0-94.0) fL RDW (11.0-15.0) % MPV 9.4 L (9.5-13.5) fL Neut % (Auto) 85.3 H (43.0-75.0) % Lymph % (Auto) 8.1 L (20.5-60.0) % Eos % (Auto) 0.8 L (0.9-7.0) % Baso % (Auto) (0.2-2.0) % Neut # (Auto) 11.0 H (1.4-6.5) 10^3/uL Lymph # (Auto) 1.0 L (1.2-3.8) 10^3/uL Abs Immat Gran (auto) 0.04 H (0.00-0.03) 10^3/uL Carbon Dioxide 15.2 L (21.0-32.0) mmol/L BUN 51.0 H (7.0-18.0) mg/dL Glucose 183 H (74-106) mg/dL Lactate 7.0 H* (0.4-2.0) mmol/L Calcium 8.2 L (8.5-10.1) mg/dL TIBC (250.0-450.0) ug/dL Total Bilirubin 0.1 L (0.2-1.0) mg/dL Total Protein 5.8 L (6.4-8.2) g/dL Albumin 2.4 L (3.4-5.0) g/dL Lipase <10.0 L (16.0-77.0) U/L Stool Occult Blood Positive A POC Glucose (74-106) mg/dL Crossmatch See Detail 07/16/23 07/16/23 07/16/23 Range/Units 05:55 11:37 11:57 WBC (4.0-11.0) 10^3/uL RBC 2.52 L (4.70-6.10) 10^6/uL Hgb 8.0 L (14.0-18.0) g/dL Hct 23.5 L* (42.0-54.0) % MCV (80.0-94.0) fL RDW 15.8 H (11.0-15.0) % MPV 9.0 L (9.5-13.5) fL Neut % (Auto) 84.8 H (43.0-75.0) % Lymph % (Auto) 9.7 L (20.5-60.0) % Eos % (Auto) 0.0 L (0.9-7.0) % Baso % (Auto) 0.1 L (0.2-2.0) % Neut # (Auto) 7.8 H (1.4-6.5) 10^3/uL Lymph # (Auto) 0.9 L (1.2-3.8) 10^3/uL Abs Immat Gran (auto) (0.00-0.03) 10^3/uL Carbon Dioxide 17.9 L (21.0-32.0) mmol/L BUN 47.0 H (7.0-18.0) mg/dL Glucose 141 H (74-106) mg/dL Lactate 3.0 H* (0.4-2.0) mmol/L Calcium 7.5 L (8.5-10.1) mg/dL TIBC 168.0 L (250.0-450.0) ug/dL Total Bilirubin (0.2-1.0) mg/dL Total Protein 5.4 L (6.4-8.2) g/dL Albumin 2.2 L (3.4-5.0) g/dL Lipase (16.0-77.0) U/L Stool Occult Blood POC Glucose 142 H (74-106) mg/dL Crossmatch Diabetes panel 07/16/23 07/16/23 Range/Units 00:59 11:57 Sodium 140 138 (136-145) mmol/L Potassium 4.4 4.3 (3.5-5.1) mmol/L Chloride 107 107 (98-107) mmol/L Carbon Dioxide 15.2 L 17.9 L (21.0-32.0) mmol/L BUN 51.0 H 47.0 H (7.0-18.0) mg/dL Creatinine 1.11 0.95 (0.70-1.30) mg/dL Glucose 183 H 141 H (74-106) mg/dL Calcium 8.2 L 7.5 L (8.5-10.1) mg/dL AST 15 15 (15-37) U/L ALT 18 19 (16-63) U/L Alkaline Phosphatase 95 80 (46-116) U/L Total Protein 5.8 L 5.4 L (6.4-8.2) g/dL Albumin 2.4 L 2.2 L (3.4-5.0) g/dL Calcium panel 07/16/23 07/16/23 Range/Units 00:59 11:57 Calcium 8.2 L 7.5 L (8.5-10.1) mg/dL Albumin 2.4 L 2.2 L (3.4-5.0) g/dL Pituitary panel 07/16/23 07/16/23 Range/Units 00:59 11:57 Sodium 140 138 (136-145) mmol/L Potassium 4.4 4.3 (3.5-5.1) mmol/L Chloride 107 107 (98-107) mmol/L Carbon Dioxide 15.2 L 17.9 L (21.0-32.0) mmol/L BUN 51.0 H 47.0 H (7.0-18.0) mg/dL Creatinine 1.11 0.95 (0.70-1.30) mg/dL Glucose 183 H 141 H (74-106) mg/dL Calcium 8.2 L 7.5 L (8.5-10.1) mg/dL Adrenal panel 07/16/23 07/16/23 Range/Units 00:59 11:57 Sodium 140 138 (136-145) mmol/L Potassium 4.4 4.3 (3.5-5.1) mmol/L Chloride 107 107 (98-107) mmol/L Carbon Dioxide 15.2 L 17.9 L (21.0-32.0) mmol/L BUN 51.0 H 47.0 H (7.0-18.0) mg/dL Creatinine 1.11 0.95 (0.70-1.30) mg/dL Glucose 183 H 141 H (74-106) mg/dL Calcium 8.2 L 7.5 L (8.5-10.1) mg/dL Total Bilirubin 0.1 L 0.5 (0.2-1.0) mg/dL AST 15 15 (15-37) U/L ALT 18 19 (16-63) U/L Alkaline Phosphatase 95 80 (46-116) U/L Total Protein 5.8 L 5.4 L (6.4-8.2) g/dL Albumin 2.4 L 2.2 L (3.4-5.0) g/dL All other labs normal. Imaging Abdomen CT scan report/results: report reviewed Assessment and Plan Assessment and Plan (1) GI (gastrointestinal bleed): Qualifiers: GI bleed type/associated pathology: unspecified gastrointestinal hemorrhage type Qualified Code(s): K92.2 - Gastrointestinal hemorrhage, unspecified (2) Proctitis: (3) RLL pneumonia: Qualifiers: Pneumonia type: due to unspecified organism Qualified Code(s): J18.9 - Pneumonia, unspecified organism (4) Generalized weakness: (5) Fecal impaction: (6) CAD (coronary artery disease): Qualifiers: Associated angina: without angina Coronary Disease-Associated Artery/Lesion type: nez perce artery [place] vs. transplanted heart: nez perce heart Qualified Code(s): I25.10 - Atherosclerotic heart disease of [place] coronary artery without angina pectoris (7) Chronic HFrEF (heart failure with reduced ejection fraction): (8) Afib: Qualifiers: Atrial fibrillation type: paroxysmal Qualified Code(s): I48.0 - Paroxysmal atrial fibrillation (9) H/O malignant neoplasm of stomach: (10) Malnutrition: Qualifiers: Malnutrition type: protein-calorie malnutrition Protein-calorie malnutr ition severity: severe Qualified Code(s): E43 - Unspecified severe protein- calorie malnutrition Plan recommend outpatient EGD and colonoscopy since there is no active bleeding and the anemia seems to be long-standing to rule out recurrent malignancy; also suggest that he see his medical oncologist at the [facility] [place] as soon as possible; I have asked nursing to call my office and set up outpatient endoscopy as soon as possible and he would need to be off of his eloquis for 2-3 days prior to the procedures.
--- NOTE | 2023-07-16 14:27 | SWNOTE1 ---
SW met with pt and pt's son and daughter. Nursing in room at beginning of assessment as well. SW spoke with pt and family about pt returning to a fdc facility for rehab. JITENDRA could see from previous notes that pt was at [facility] in [place]. After a long conversation with pt and family, pt is in agreement and does want to go to SNF for rehab to try and get stronger. Pt and family voiced they were pleased with [facility] and would like to go there if openings. SW did speak with pt and family about hospice and services that hospice can offer in the home. At this time pt and family do not want hospice. SW to reach out to [facility]. Pt's daughter did voice the last time he was at [facility] they spoke with them about medicaid and lobsterman once he was done with rehab, but family did not pursue this.
--- NOTE | 2023-07-16 14:41 | SWNOTE1 ---
JITENDRA called and spoke with Radha in admissions at [facility] and at this time they have no beds until next week. She voiced we can call back Thursday if pt is still here. JITENDRA to speak with pt and family again to see what other nursing facility they would like.
--- NOTE | 2023-07-16 14:49 | SWNOTE1 ---
SW reviewed list from medicare.gov with star ratings with family and they would like [facility]. SW to reach out.
[2023-07-16] MEDS: IRON SUCROSE COMPLEX 200 MG in 0.9 % SODIUM CHLORIDE 100 ML 220 MG IV (14:58)
--- NOTE | 2023-07-16 15:09 | PC.NURSE ---
called dr marie's office per his request to set up out pt procedures. spoke with best at his office, requested face sheet. will fax face sheet to [phone].
[2023-07-16 15:40] LABS: Glucometer 150 mg/dL (74-106)
[2023-07-16] MEDS: OXYCODONE HCL 5 MG TABLET PO (16:09)
--- NOTE | 2023-07-16 16:15 | SWNOTE1 ---
[facility] is able to accept when pt is ready for dc.
--- NOTE | 2023-07-16 16:16 | SWNOTE1 ---
SW updated nursing and family.
--- NOTE | 2023-07-16 16:30 | PC.NURSE ---
pt and belongings transferred to rm 214. son and daughter present. pt oriented to room and call light. report given to jorge
--- NOTE | 2023-07-16 19:39 | RESP.RT ---
No PRN breathing tx given. No respiratory distress noted.
[2023-07-16 20:23] LABS: Hemoglobin 7.8 g/dL (14.0-18.0)
[2023-07-16 20:26] LABS: Hematocrit 23.7 % (42.0-54.0)
[2023-07-16 20:28] LABS: Glucometer 203 mg/dL (74-106)
[2023-07-16] MEDS: ACETAMINOPHEN 325 MG TABLET 650 MG PO (21:14)
[2023-07-16] MEDS: INSULIN ASPART 300 UNIT/3 ML PEN SUBQ (22:22)
[2023-07-16 23:18] LABS: Bilirubin Urine NEGATIVE (NEGATIVE); Blood Urine NEGATIVE (NEGATIVE); Clarity Urine CLEAR (CLEAR); Color Urine YELLOW (YELLOW); Glucose Urine UA NEGATIVE (NEGATIVE); Ketones Urine NEGATIVE (NEGATIVE); Leukocyte Esterase Urine NEGATIVE (NEGATIVE); Nitrite Urine NEGATIVE (NEGATIVE); Protein Urine NEGATIVE (NEG/TRACE); Specific Gravity Urine 1.015 (1.005-1.025); Urine Microscopic Indicated NO; Urobilinogen Urine 0.2 EU/dL (0.2-1.0); pH Urine 5.5 (5.0-9.0)
--- NOTE | 2023-07-16 23:21 | PC.NURSE ---
Straight Cath used to obtain UA due to patient incontinence. UA obtained and 450 mL of urine emptied from bladder. Urine was odorous. Patients brief was also wet at this time. Brief changed and patient repositioned in bed.
[2023-07-17] VITALS (24 sets, daily range): BP systolic 107–131; BP diastolic 61–84; PULSE 71–96; RESP 16–20; TEMP 36.6–37.1; O2SAT 91–96
[2023-07-17] MEDS: METRONIDAZOLE/SODIUM CHLORIDE 500 MG/100 ML PREMIX 100 MG IV ×3 (00:21→17:04)
[2023-07-17 04:26] LABS: Basophils Percent Auto 0.2 % (0.2-2.0); Eosinophils Absolute Auto 0.2 10^3/uL (0.0-0.7); Eosinophils Percent Auto 2.9 % (0.9-7.0); Hemoglobin 7.6 g/dL (14.0-18.0); Immature Granulocytes Abs Auto 0.03 10^3/uL (0.00-0.03); Immature Granulocytes Pct Auto 0.5 % (0.0-0.5); Lymphocytes Absolute Auto 1.2 10^3/uL (1.2-3.8); Lymphocytes Percent Auto 19.8 % (20.5-60.0); Mean Corpuscular HGB Conc 32.8 g/dL (29.9-35.2); Mean Corpuscular Volume 94.7 fL (80.0-94.0); Monocytes Absolute Auto 0.5 10^3/uL (0.3-0.8); Monocytes Percent Auto 8.4 % (1.7-12.0); Neutrophils Absolute Auto 4.2 10^3/uL (1.4-6.5); Neutrophils Percent Auto 68.2 % (43.0-75.0); Platelet Count 231 10^3/uL (150-450); Red Blood Count 2.45 10^6/uL (4.70-6.10); Red Cell Distribution Width 17.2 % (11.0-15.0); White Blood Count 6.2 10^3/uL (4.0-11.0)
[2023-07-17] MEDS: PANTOPRAZOLE SODIUM 40 MG VIAL IV ×2 (04:30→17:03)
[2023-07-17 04:49] LABS: Alanine Aminotransferase 18 U/L (16-63); Albumin Globulin Ratio 0.7; Albumin Level 2.2 g/dL (3.4-5.0); Alkaline Phosphatase 74 U/L (46-116); Anion Gap 12.1; Aspartate Amino Transferase 17 U/L (15-37); BUN Creatinine Ratio 37.1; Bilirubin Total 0.3 mg/dL (0.2-1.0); Calcium 8.2 mg/dL (8.5-10.1); Carbon Dioxide 23.1 mmol/L (21.0-32.0); Chloride 110 mmol/L (98-107); Estimated GFR (African America >60 (>=60); Estimated GFR (Non-African Ame >60 (>=60); Globulin 3.2 g/dL; Glucose 106 mg/dL (74-106); Potassium 4.2 mmol/L (3.5-5.1); Sodium 141 mmol/L (136-145); Total Protein 5.4 g/dL (6.4-8.2)
[2023-07-17 04:51] LABS: Hematocrit 23.2 % (42.0-54.0)
[2023-07-17] MEDS: CEFTRIAXONE 1,000 MG in 0.9 % SODIUM CHLORIDE 50 ML 100 MG IV (10:50)
--- NOTE | 2023-07-17 12:40 | CM.NOTE ---
Rounds made with Dr. Oliver, awaiting precert to [facility]. Pt will discharge to [facility] when medically stable.
[2023-07-17 13:19] LABS: Glucometer 196 mg/dL (74-106)
[2023-07-17] MEDS: INSULIN ASPART 300 UNIT/3 ML PEN SUBQ ×2 (14:07→17:05)
--- NOTE | 2023-07-17 14:34 | CM.NOTE ---
2nd Notice for Important Message From Medicare discussed with pt, denies any questions or concerns.
[2023-07-17] MEDS: DOCUSATE SODIUM 100 MG CAPSULE PO (15:10)
[2023-07-17] MEDS: OXYCODONE HCL 5 MG TABLET PO (15:10)
--- NOTE | 2023-07-17 15:40 | SWNOTE1 ---
Updates sent to [facility]. SW spoke with family and pt and continuing with plan of going there for rehab. Packet left on floor for nursing for weekend.
--- NOTE | 2023-07-17 15:54 | P.IMPN_ITS ---
Progress Note: A&P Assessment and Plan (1) GI (gastrointestinal bleed): Assessment and Plan: Hold Eliquis.received 2 units on day of admission. No active bleeding noted. but Hb slightly low today - from IV hydration,blood draws ? Transfuse one unit. Repeat post transfusion. No overt,active bleeding noted. Gen Surgery recommends outpatient EGD/Colonoscopy. Monitor H&H, c/w protonix IV 40 q12 Qualifiers: GI bleed type/associated pathology: unspecified gastrointestinal hemorrhage type Qualified Code(s): K92.2 - Gastrointestinal hemorrhage, unspecified (2) Proctitis: Assessment and Plan: Rectal inflammation, associated small amount of rectal bleeding. On Rocephin/flagly. Denies nausea, vomiting or abdominal pain. Tolerating PO diet (3) RLL pneumonia: Assessment and Plan: RLL infiltrate on CT but no associated resp symptoms. However, on rocephin for proctitis that would adequately cover PNA also. C/w same. on RA. Qualifiers: Pneumonia type: due to unspecified organism Qualified Code(s): J18.9 - Pneumonia, unspecified organism (4) Generalized weakness: Assessment and Plan: Multifactorial. due to malnutrition, frailty, multiple comorbid conditions. More or less bed bound since start of the year. PT/OT. Will need rehab placement. (5) Fecal impaction: Assessment and Plan: Resolved. (6) CAD (coronary artery disease): Assessment and Plan: Hold ASA due to bleeding and anemia. C/w toprol and statin Qualifiers: Coronary Disease-Associated Artery/Lesion type: [place] artery [place] vs. transplanted heart: [place] heart Associated angina: without angina Qualified Code(s): I25.10 - Atherosclerotic heart disease of [place] coronary artery without angina pectoris (7) Chronic HFrEF (heart failure with reduced ejection fraction): Assessment and Plan: Euvolemic. D/c IVF. Monitor closely as risk of volume overload with IV abx and blood transfusion. Not on GDMT, I suspect due to frailty, non compliance. Only on Toprol as outpatient. (8) Afib: Assessment and Plan: In NSR. Hold Eliquis. Monitor. Qualifiers: Atrial fibrillation type: paroxysmal Qualified Code(s): I48.0 - Paroxysmal atrial fibrillation (9) H/O malignant neoplasm of stomach: Assessment and Plan: s/p mana at [facility]. Has poor insight, does not follow up regularly. Will need outpatient f/u with Oncology. (10) Malnutrition: Assessment and Plan: Add Ensure. Qualifiers: Malnutrition type: protein-calorie malnutrition Protein-calorie malnutrition severity: severe Qualified Code(s): E43 - Unspecified severe protein-calorie malnutrition (11) Type 2 diabetes mellitus: Assessment and Plan: SSI while in patient. Qualifiers: Diabetes mellitus intermodal customer service insulin use: without intermodal customer service use Diabetes mellitus complication status: without complication Qualified Code(s): E11.9 - Type 2 diabetes mellitus without complications Plan Needs continued inpatient monitoring and treatment for anemia. Hb dropped to 7.6 --> will transfuse one unit. Internal Medicine - PN: Subj Subjective Interval history: Seen and examined. Doing well. He denies any active complaints. Overall improved but still very weak, frail. Exam Constitutional Vital Signs, click to edit/add: Last Vital Signs Temp 98.4 F 07/17/23 15:08 Pulse 85 07/17/23 15:08 Resp 18 07/17/23 15:08 BP 122/73 07/17/23 15:08 Pulse Ox 96 07/17/23 15:08 O2 Del Method Room Air 07/17/23 15:08 O2 Flow Rate 2 07/17/23 15:08 Documenting provider has reviewed patient's vital signs: yes General appearance: cooperative, comfortable and frail appearing Nutritional appearance: cachectic Orientation/consciousness: Yes awake and Yes oriented to person [facility] Common normals: normocephalic and head/scalp atraumatic Respiratory Common normals: no use of accessory muscles and clear to auscultation bila terally Effort & inspection: able to speak in complete sentences and decreased respiratory effort Cardio Common normals: no JVD, regular rate, regular rhythm, S1 normal heart sound and S2 normal heart sound GI Common normals: Normal to inspection, nondistended, normoactive bowel sounds present, soft to palpation, non-tender and no hepatosplenomegaly Extremity Common normals: normal to inspection, full ROM and no clubbing, cyanosis or edema Neuro Common normals: oriented x3, moves all extremities and no focal motor deficits Sensorium/orientation: awake, alert and lethargic Speech: speech normal (weak voice. ) Gait (neuro): unable to assess gait Psych Common normals: denies homicidal ideation and denies suicidal ideation Attitude: calm Speech: slow Internal Medicine - PN: Obj Da Labs Labs: Laboratory Results - last 24 hr 07/16/23 07/16/23 07/16/23 02:05 20:18 20:26 WBC RBC Hgb 7.8 L Hct 23.7 L* MCV MCH MCHC RDW Plt Count MPV Neut % (Auto) Lymph % (Auto) [place] % (Auto) Eos % (Auto) Baso % (Auto) Neut # (Auto) Lymph # (Auto) [place] # (Auto) Eos # (Auto) Baso # (Auto) Abs Immat Gran (auto) Imm/Tot Granulo (auto) Sodium Potassium Chloride Carbon Dioxide Anion Gap BUN Creatinine Est GFR ( Amer) Est GFR (Non-Af Amer) BUN/Creatinine Ratio Glucose Calcium Total Bilirubin AST ALT Alkaline Phosphatase Total Protein Albumin Globulin Albumin/Globulin Ratio Urine Color Urine Clarity Urine pH Ur Specific [place] Urine Protein Urine Glucose (UA) Urine Ketones Urine Occult Blood Urine Nitrite Urine Bilirubin Urine Urobilinogen Ur Leukocyte Esterase POC Glucose 203 H Blood Type A Positive Antibody Screen Negative Crossmatch See Detail 07/16/23 07/17/23 07/17/23 22:51 04:10 13:18 WBC 6.2 RBC 2.45 L Hgb 7.6 L Hct 23.2 L* MCV 94.7 H MCH 31.0 MCHC 32.8 RDW 17.2 H Plt Count 231 MPV 9.0 L Neut % (Auto) 68.2 Lymph % (Auto) 19.8 L [place] % (Auto) 8.4 Eos % (Auto) 2.9 Baso % (Auto) 0.2 Neut # (Auto) 4.2 Lymph # (Auto) 1.2 [place] # (Auto) 0.5 Eos # (Auto) 0.2 Baso # (Auto) 0.0 Abs Immat Gran (auto) 0.03 Imm/Tot Granulo (auto) 0.5 Sodium 141 Potassium 4.2 Chloride 110 H Carbon Dioxide 23.1 Anion Gap 12.1 BUN 33.0 H Creatinine 0.89 Est GFR ( Amer) >60 Est GFR (Non-Af Amer) >60 BUN/Creatinine Ratio 37.1 Glucose 106 Calcium 8.2 L Total Bilirubin 0.3 AST 17 ALT 18 Alkaline Phosphatase 74 Total Protein 5.4 L Albumin 2.2 L Globulin 3.2 Albumin/Globulin Ratio 0.7 Urine Color Yellow Urine Clarity Clear Urine pH 5.5 Ur Specific [place] 1.015 Urine Protein Negative Urine Glucose (UA) Negative Urine Ketones Negative Urine Occult Blood Negative Urine Nitrite Negative Urine Bilirubin Negative Urine Urobilinogen 0.2 Ur Leukocyte Esterase Negative POC Glucose 196 H Blood Type Antibody Screen Crossmatch
--- NOTE | 2023-07-17 16:07 | SWNOTE1 ---
HENS completed and placed in packet.
[2023-07-17 17:03] LABS: Glucometer 160 mg/dL (74-106)
[2023-07-17 18:04] LABS: Hematocrit 27.6 % (42.0-54.0); Hemoglobin 9.1 g/dL (14.0-18.0)
--- NOTE | 2023-07-17 20:21 | PC.NURSE ---
Patients prominent kian coccyx covered with duoderm for prophylaxis care
[2023-07-17] MEDS: LACTOSE -REDUCED (ENSURE ORIGINAL 237 ML LIQUID) PO (20:50)
[2023-07-17 20:54] LABS: Glucometer 107 mg/dL (74-106)
[2023-07-17] MEDS: ACETAMINOPHEN 325 MG TABLET 650 MG PO (22:15)
[2023-07-18] VITALS (24 sets, daily range): BP systolic 89–131; BP diastolic 56–84; PULSE 64–159; RESP 14–21; TEMP 36.3–36.9; O2SAT 93–98
[2023-07-18] MEDS: METRONIDAZOLE/SODIUM CHLORIDE 500 MG/100 ML PREMIX 100 MG IV ×3 (00:54→16:31)
[2023-07-18] MEDS: PANTOPRAZOLE SODIUM 40 MG VIAL IV ×2 (03:48→16:19)
[2023-07-18] MEDS: ACETAMINOPHEN 325 MG TABLET 650 MG PO ×3 (05:11→20:51)
[2023-07-18 05:47] LABS: Basophils Percent Auto 0.4 % (0.2-2.0); Eosinophils Absolute Auto 0.3 10^3/uL (0.0-0.7); Eosinophils Percent Auto 5.7 % (0.9-7.0); Hematocrit 27.8 % (42.0-54.0); Hemoglobin 9.2 g/dL (14.0-18.0); Immature Granulocytes Abs Auto 0.01 10^3/uL (0.00-0.03); Immature Granulocytes Pct Auto 0.2 % (0.0-0.5); Lymphocytes Absolute Auto 1.1 10^3/uL (1.2-3.8); Lymphocytes Percent Auto 22.2 % (20.5-60.0); Mean Corpuscular HGB Conc 33.1 g/dL (29.9-35.2); Mean Corpuscular Hemoglobin 30.3 pg (25.9-34.0); Mean Corpuscular Volume 91.4 fL (80.0-94.0); Mean Platelet Volume 9.1 fL (9.5-13.5); Monocytes Absolute Auto 0.5 10^3/uL (0.3-0.8); Monocytes Percent Auto 9.8 % (1.7-12.0); Neutrophils Percent Auto 61.7 % (43.0-75.0); Platelet Count 248 10^3/uL (150-450); Red Blood Count 3.04 10^6/uL (4.70-6.10); White Blood Count 4.9 10^3/uL (4.0-11.0)
[2023-07-18 06:04] LABS: Alanine Aminotransferase 16 U/L (16-63); Albumin Globulin Ratio 0.7; Albumin Level 2.3 g/dL (3.4-5.0); Alkaline Phosphatase 72 U/L (46-116); Anion Gap 13.4; Aspartate Amino Transferase 17 U/L (15-37); BUN Creatinine Ratio 21.2; Bilirubin Total 0.2 mg/dL (0.2-1.0); Calcium 8.1 mg/dL (8.5-10.1); Carbon Dioxide 24.6 mmol/L (21.0-32.0); Chloride 105 mmol/L (98-107); Estimated GFR (African America >60 (>=60); Estimated GFR (Non-African Ame >60 (>=60); Globulin 3.2 g/dL; Glucose 146 mg/dL (74-106); Sodium 139 mmol/L (136-145); Total Protein 5.5 g/dL (6.4-8.2)
[2023-07-18 07:55] LABS: Glucometer 126 mg/dL (74-106)
[2023-07-18] MEDS: LACTOSE -REDUCED (ENSURE ORIGINAL 237 ML LIQUID) PO ×2 (08:49→20:51)
[2023-07-18] MEDS: CEFTRIAXONE 1,000 MG in 0.9 % SODIUM CHLORIDE 50 ML 100 MG IV (10:30)
[2023-07-18] MEDS: POLYETHYLENE GLYCOL 3350 17 GM POWDER PACKET PO (10:31)
[2023-07-18] MEDS: DOCUSATE SODIUM 100 MG CAPSULE PO (10:31)
--- NOTE | 2023-07-18 10:31 | PC.NURSE ---
patient given prn medications for constipation per pt request.
--- NOTE | 2023-07-18 11:13 | REH.PTDLY ---
Physical Therapy Daily Note PT Daily Note/Assess Start: 07/17/23 11:21 Freq: Status: Active Protocol: Document 07/18/23 11:03 SHIRLENE (Rec: 07/18/23 11:12 [id number] Visit Not Completed Other Reason Visit Not Completed Pt agreeable to therapy. Physical Therapy Daily Note/Assessment Time In 10:04 Time Out 10:18 Subjective Attempted earlier to see pt, but pt needs to use restroom. Helped nursing roll pt to side Min A with cues and then NA gets pt on bed mooney. Returned later and pt agreeable to therapy. Therapeutic Exercise Minutes (minutes) 5 Therapeutic Exercise Units 0 Therapeutic Exercise Treatment Instructed in B LE supine exs 10x ea with exs including AP, QS, heel slides, hip abd slides, and SLR. Phong knees are slightly contracted so pt is unable to fully extend. Therapeutic Activity Minutes (minutes) 9 Therapeutic Activity Units 1 Bed Mobility Ability Minimum Assist,2 Person Assist Chair Transfer Ability Minimum Assist,2 Person Assist Therapeutic Activity Comments Min A x2 with supine to sit transfers. Cues for bedside sitting posture as pt tends to lean retro some thus bringing feet off floor and making core work harder. Sit to stand transfers Mod A x2 with cues attempt to extend knees some, pt tends to lean to the R. Cues for pt to side step to the L to HOB, taking 4-5 steps with Mod A x2. Returns to sit and then supine Min A x2. Total Therapy Minutes 14 Total Physical Therapy Units 1 Daily Note Summary Pt fatigued post rx at core and in legs. Was able to progress to side stepping today, but pt needed Mod A x2 and heavy UE use. Pt is non ambulatory at home with family care.
[2023-07-18 11:16] LABS: Glucometer 247 mg/dL (74-106)
[2023-07-18] MEDS: INSULIN ASPART 300 UNIT/3 ML PEN SUBQ ×2 (11:34→22:24)
--- NOTE | 2023-07-18 11:56 | PM.PN ---
Progress Note: Subjective Subjective Interval history: Patient continues to improve. Less SOB and mild cough. Continues to have severe weakness and very frail. Reports decreased appetite and nausea but no emesis or diarrhea. No chest pain or palpitations. Afebrile. Exam Constitutional Vital Signs, click to edit/add: Last Vital Signs Temp 97.4 F L 07/18/23 05:16 Pulse 90 07/18/23 10:12 Resp 16 07/18/23 08:03 BP 121/73 07/18/23 08:03 Pulse Ox 95 07/18/23 11:35 O2 Del Method Room Air 07/18/23 11:35 O2 Flow Rate 2 07/17/23 18:45 Documenting provider has reviewed patient's vital signs: yes Common normals: no apparent distress, oriented x3 and alert HENMT Common normals: normocephalic Eye Common normals: PERRL and EOMs intact bilaterally Respiratory Common normals: normal respiratory effort and clear to auscultation bilaterally Cardio Common normals: regular rate, regular rhythm, no gallops, no murmurs and no rub GI Common normals: Normal to inspection, nondistended, normoactive bowel sounds present and non-tender Extremity Common normals: no pedal edema Progress Note: Objective Labs Labs: Short CBC 07/17/23 07/18/23 Range/Units 17:53 04:28 WBC 4.9 (4.0-11.0) 10^3/uL Hgb 9.1 L 9.2 L (14.0-18.0) g/dL Hct 27.6 L 27.8 L (42.0-54.0) % Plt Count 248 (150-450) 10^3/uL BMP 07/18/23 04:28 Sodium 139 Potassium 4.0 Chloride 105 Carbon Dioxide 24.6 BUN 17.0 Creatinine 0.80 Glucose 146 H Calcium 8.1 L Liver Function 07/18/23 Range/Units 04:28 Total Bilirubin 0.2 (0.2-1.0) mg/dL AST 17 (15-37) U/L ALT 16 (16-63) U/L Alkaline Phosphatase 72 (46-116) U/L Albumin 2.3 L (3.4-5.0) g/dL Progress Note: A&P Assessment and Plan (1) GI (gastrointestinal bleed): Qualifiers: GI bleed type/associated pathology: unspecified gastrointestinal hemorrhage type Qualified Code(s): K92.2 - Gastrointestinal hemorrhage, unspecified (2) Anemia due to blood loss, chronic: (3) RLL pneumonia: Qualifiers: Pneumonia type: due to unspecified organism Qualified Code(s): J18.9 - Pneumonia, unspecified organism (4) Proctitis: (5) Fecal impaction: (6) Generalized weakness: (7) H/O malignant neoplasm of stomach: (8) Type 2 diabetes mellitus with hyperglycemia: (9) Chronic HFrEF (heart failure with reduced ejection fraction): (10) Paroxysmal atrial fibrillation: (11) CAD (coronary artery disease): Qualifiers: Coronary Disease-Associated Artery/Lesion type: [place] artery [place] vs. transplanted heart: [place] heart Associated angina: without angina Qualified Code(s): I25.10 - Atherosclerotic heart disease of [place] coronary artery without angina pectoris (12) Moderate protein-calorie malnutrition: Plan Patient improved and continue antibiotics and breathing treatments. Hgb stable and monitor. Continue PT/OT for weakness. Encourage PO intake. Will need SNF upon discharge for strengthening.
[2023-07-18] MEDS: METOPROLOL TARTRATE 5 MG/5 ML VIAL IVP (16:17)
[2023-07-18] MEDS: METOPROLOL SUCCINATE 25 MG TAB.ER.24H PO (16:19)
[2023-07-18 16:34] LABS: Glucometer 160 mg/dL (74-106)
[2023-07-18 22:19] LABS: Glucometer 251 mg/dL (74-106)
[2023-07-19] VITALS (8 sets, daily range): BP systolic 102; BP diastolic 69; PULSE 59–765; RESP 21; TEMP 36.6; O2SAT 98
[2023-07-19] MEDS: METRONIDAZOLE/SODIUM CHLORIDE 500 MG/100 ML PREMIX 100 MG IV ×2 (00:06→09:02)
[2023-07-19 05:19] LABS: Basophils Percent Auto 0.4 % (0.2-2.0); Eosinophils Absolute Auto 0.2 10^3/uL (0.0-0.7); Eosinophils Percent Auto 4.3 % (0.9-7.0); Hemoglobin 9.9 g/dL (14.0-18.0); Immature Granulocytes Abs Auto 0.01 10^3/uL (0.00-0.03); Immature Granulocytes Pct Auto 0.2 % (0.0-0.5); Lymphocytes Absolute Auto 1.2 10^3/uL (1.2-3.8); Lymphocytes Percent Auto 25.9 % (20.5-60.0); Mean Corpuscular Hemoglobin 30.7 pg (25.9-34.0); Mean Corpuscular Volume 92.9 fL (80.0-94.0); Monocytes Absolute Auto 0.5 10^3/uL (0.3-0.8); Monocytes Percent Auto 10.6 % (1.7-12.0); Neutrophils Absolute Auto 2.7 10^3/uL (1.4-6.5); Neutrophils Percent Auto 58.6 % (43.0-75.0); Platelet Count 270 10^3/uL (150-450); Red Blood Count 3.23 10^6/uL (4.70-6.10); Red Cell Distribution Width 16.9 % (11.0-15.0); White Blood Count 4.6 10^3/uL (4.0-11.0)
[2023-07-19 05:37] LABS: Alanine Aminotransferase 17 U/L (16-63); Albumin Globulin Ratio 0.7; Albumin Level 2.4 g/dL (3.4-5.0); Alkaline Phosphatase 71 U/L (46-116); Anion Gap 12.7; Aspartate Amino Transferase 16 U/L (15-37); BUN Creatinine Ratio 22.2; Bilirubin Total 0.3 mg/dL (0.2-1.0); Calcium 8.3 mg/dL (8.5-10.1); Carbon Dioxide 26.2 mmol/L (21.0-32.0); Chloride 106 mmol/L (98-107); Estimated GFR (African America >60 (>=60); Estimated GFR (Non-African Ame >60 (>=60); Globulin 3.3 g/dL; Glucose 94 mg/dL (74-106); Potassium 3.9 mmol/L (3.5-5.1); Sodium 141 mmol/L (136-145); Total Protein 5.7 g/dL (6.4-8.2)
[2023-07-19] MEDS: METOPROLOL SUCCINATE 25 MG TAB.ER.24H PO (09:02)
[2023-07-19] MEDS: PANTOPRAZOLE SODIUM 40 MG VIAL IV (09:03)
[2023-07-19] MEDS: LACTOSE -REDUCED (ENSURE ORIGINAL 237 ML LIQUID) PO (09:03)
[2023-07-19] MEDS: CEFTRIAXONE 1,000 MG in 0.9 % SODIUM CHLORIDE 50 ML 100 MG IV (10:17)
[2023-07-19] MEDS: ACETAMINOPHEN 325 MG TABLET 650 MG PO (10:17)
--- NOTE | 2023-07-19 11:09 | P.DS_ITS ---
DS: Providers Provider Date of admission: 07/16/23 06:34 Primary care physician: Carrie Caputo MD Consults: 07/16/23 Consult to Utility [employer] [place] Routine Reason for consult:: Financial Concerns Occupational Therapy Eval and Treat Routine Reason for consultation: weakness Physical Therapy Eval and Treat Routine Reason for consultation: weakness 07/16/23 04:19 Consult to General Surgeon Routine Consulting Provider: Rick Zapata Reason for consultation: GIB; Hx [place] Has provider been notified: No DS: Diagnosis Discharge Diagnosis (1) GI (gastrointestinal bleed): Qualifiers: GI bleed type/associated pathology: unspecified gastrointestinal hemorrhage type Qualified Code(s): K92.2 - Gastrointestinal hemorrhage, unspecified (2) Anemia due to blood loss, chronic: (3) RLL pneumonia: Qualifiers: Pneumonia type: due to unspecified organism Qualified Code(s): J18.9 - Pneumonia, unspecified organism (4) Proctitis: (5) Fecal impaction: (6) Generalized weakness: (7) H/O malignant neoplasm of stomach: (8) Type 2 diabetes mellitus with hyperglycemia: (9) Chronic HFrEF (heart failure with reduced ejection fraction): (10) Paroxysmal atrial fibrillation: (11) CAD (coronary artery disease): Qualifiers: Coronary Disease-Associated Artery/Lesion type: [place] artery [place] vs. transplanted heart: [place] heart Associated angina: without angina Qualified Code(s): I25.10 - Atherosclerotic heart disease of [place] coronary artery without angina pectoris (12) Moderate protein-calorie malnutrition: DS: Summary Hospital Course Hospital Course: Reason for admission: See ER note and H&P for details. 68 y/o male to ER with weakness. Recently had increased nausea and emesis. History of gastric cancer and prior ulcer. Takes Eliquis for afib. Continued emesis and weakness and to ER. BP low in ER and WBC 12. Hgb decreased at 6.0 and given [address] abdomen with pneumonia, proctitis, and fecal impaction and admitted. Hospital course: Given 2 units PRBC and general surgery consulted. Started IV protonix and held Eliquis. Started rocephin and flagyl for pneumonia and proctitis. Treated constipation. Improved in hospital and hgb stable. Evaluated by surgery and felt no active bleeding and recommend outpatient upper and lower endoscopy. Started PT/OT for weakness. Hgb decreased from 8.0 to 7.6 and given additional unit of blood. Patient remained stable and hgb improved. PT recommended SNF for strengthening. Afebrile and normal WBC. Developed afib and pulse in 130s. Given IV metoprolol and resumed home metoprolol. Back in NSR and rate controlled. Transferred to SNF in stable condition. Will take cefdinir and flagyl x 7 days. Stop Eliquis. Time Spent with Patient Time attestation: Total time spent providing and/or coordinating discharge services: Exam Constitutional Vital Signs, click to edit/add: Last Vital Signs Temp 97.9 F 07/19/23 05:45 Pulse 78 07/19/23 10:04 Resp 21 07/19/23 05:45 BP 102/69 07/19/23 05:45 Pulse Ox 98 07/19/23 05:45 O2 Del Method Room Air 07/19/23 05:45 O2 Flow Rate 2 07/17/23 18:45 Documenting provider has reviewed patient's vital signs: yes Common normals: no apparent distress, oriented x3 and alert HENMT Common normals: normocephalic Eye Common normals: PERRL and EOMs intact bilaterally Respiratory Common normals: normal respiratory effort and clear to auscultation bilaterally Cardio Common normals: regular rate, regular rhythm, no gallops, no murmurs and no rub GI Common normals: Normal to inspection, nondistended, normoactive bowel sounds present and non-tender Extremity Common normals: no pedal edema DS: Data Data Completed and Pending Labs on day of discharge: Labs from last 24 hours 07/19/23 07/18/23 07/18/23 04:28 22:18 16:33 WBC 4.6 RBC 3.23 L Hgb 9.9 L Hct 30.0 L MCV 92.9 MCH 30.7 MCHC 33.0 RDW 16.9 H Plt Count 270 MPV 9.0 L Neut % (Auto) 58.6 Lymph % (Auto) 25.9 [place] % (Auto) 10.6 Eos % (Auto) 4.3 Baso % (Auto) 0.4 Neut # (Auto) 2.7 Lymph # (Auto) 1.2 [place] # (Auto) 0.5 Eos # (Auto) 0.2 Baso # (Auto) 0.0 Abs Immat Gran (auto) 0.01 Imm/Tot Granulo (auto) 0.2 Sodium 141 Potassium 3.9 Chloride 106 Carbon Dioxide 26.2 Anion Gap 12.7 BUN 16.0 Creatinine 0.72 Est GFR ( Amer) >60 Est GFR (Non-Af Amer) >60 BUN/Creatinine Ratio 22.2 Glucose 94 Calcium 8.3 L Total Bilirubin 0.3 AST 16 ALT 17 Alkaline Phosphatase 71 Total Protein 5.7 L Albumin 2.4 L Globulin 3.3 Albumin/Globulin Ratio 0.7 POC Glucose 251 H 160 H 07/18/23 11:15 WBC RBC Hgb Hct MCV MCH MCHC RDW Plt Count MPV Neut % (Auto) Lymph % (Auto) [place] % (Auto) Eos % (Auto) Baso % (Auto) Neut # (Auto) Lymph # (Auto) [place] # (Auto) Eos # (Auto) Baso # (Auto) Abs Immat Gran (auto) Imm/Tot Granulo (auto) Sodium Potassium Chloride Carbon Dioxide Anion Gap BUN Creatinine Est GFR ( Amer) Est GFR (Non-Af Amer) BUN/Creatinine Ratio Glucose Calcium Total Bilirubin AST ALT Alkaline Phosphatase Total Protein Albumin Globulin Albumin/Globulin Ratio POC Glucose 247 H Preliminary micro results at discharge 07/16/23 02:05 - Preliminary Blood NO GROWTH AT 36-48 HOURS. FINAL TO FOLLOW. Discharge Plan Discharge Disposition: Xfer SNF Discharge Medications: New cefdinir 300 mg capsule 300 mg PO BID 7 Days Qty: 14 0RF metronidazole 500 mg tablet 500 mg PO QID 7 Days Qty: 28 0RF Continued baclofen 10 mg tablet 5 mg PO TID PRN (Reason: muscle spasm) Rx Instructions: PER RETAIL FILL HX - LAST FILLED 01/12/23 #30 TABS FOR A 30 DAY SUPPLY mirtazapine 15 mg tablet 15 mg PO .QHS PRN (Reason: Not Specified) Rx Instructions: PER RETAIL FILL HX - LAST FILLED 01/01/23 #30 FOR 30 DAY SUPPLY Creon 24,000-76,000 -120,000 unit capsule,delayed release(DR/EC) 2 cap PO TID Rx Instructions: administer with meals and/or snacks metoclopramide HCl 10 mg tablet 10 mg PO TID Janumet 50-1,000 mg tablet 1 tab PO BID atorvastatin 40 mg tablet 20 mg PO QPM metoprolol succinate 25 mg capsule,sprinkle,ER 24hr 25 mg PO DAILY Hold Instructions: Doctor's Order folic acid 1 mg tablet 1 mg PO DAILY fluoxetine 20 mg capsule 40 mg PO DAILY baclofen 5 mg tablet 5 mg PO BID PRN (Reason: muscle spasm) Changed alprazolam 0.25 mg tablet 0.25 mg PO TID PRN (Reason: anxiety) 5 Days Qty: 15 0RF Discontinued Eliquis 2.5 mg tablet 2.5 mg PO BID Forms: Portal Instructions Follow Up Appointments: - endoscopy with Dr. Zapata @ [facility]
== END 2023-07-19 14:28 | DRG 811 ==
LOC: ER 03:54 → ICU 06:35 → MS 16:33 → ICU 07-18 14:39
PROVIDERS: Nurse Practitioner Acute Care; Admitting Provider Internal Medicine; Emergency Provider Internal Medicine; PCP Family Medicine; Visit Provider Internal Medicine
DX: D50.0 Iron deficiency anemia secondary to blood loss (chronic) (principal); J18.9 Pneumonia, unspecified organism; E44.0 Moderate protein-calorie malnutrition; K92.2 Gastrointestinal hemorrhage, unspecified; I50.22 Chronic systolic (congestive) heart failure; R64 Cachexia; K62.89 Other specified diseases of anus and rectum; R53.1 Weakness; K56.41 Fecal impaction; I25.10 Atherosclerotic heart disease of native coronary artery without angina pectoris; I48.0 Paroxysmal atrial fibrillation; Z95.5 Presence of coronary angioplasty implant and graft; Z90.410 Acquired total absence of pancreas; Z90.49 Acquired absence of other specified parts of digestive tract; Z85.028 Personal history of other malignant neoplasm of stomach; F41.8 Other specified anxiety disorders; Z79.84 Long term (current) use of oral hypoglycemic drugs; Z68.21 Body mass index [BMI] 21.0-21.9, adult; Z79.01 Long term (current) use of anticoagulants; E11.65 Type 2 diabetes mellitus with hyperglycemia; I25.2 Old myocardial infarction; E86.0 Dehydration; Z68.20 Body mass index [BMI] 20.0-20.9, adult
CPT/HCPCS: 36415; 36430; 71045; 74177; 80053; 81003; 82271; 82728; 82948; 83540; 83550; 83605; 83690; 84484; 85014; 85018; 85025; 86850; 86900; 86901; 87040; 93005; 94761; 96361; 96365; 96366; 96367; 96368; 96372; 96375; 96376; 97161; 97165; 97530; 97535; 99285; G0328; J0456; J0696; J1650; J1756; J1836; J2405; P9016; Q9967

== ENCOUNTER 2023-07-27 14:39 | Outpatient (OUT) | payer MEDICARE, MEDICAID, SELFPAY ==
--- OUTSIDE RECORDS SUMMARY | 2023-07-27 14:48 | XMS_ITS | CCD ---
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 Role Phone MICHAEL JOLLEY) Unavailable Unavailable MICHAEL JOLLEY) Unavailable Unavailable YAMILE CERDA Unavailable Unavailable MICHAEL JOLLEY) Unavailable Unavailable MICHAEL JOLLEY) Unavailable Unavailable MICHAEL JOLLEY) Unavailable Unavailable MICHAEL JOLLEY) Unavailable Unavailable HARMONY HINOJOSA Unavailable Unavailable MAU DUFFY Unavailable Unavailable ADRIANE NICHOLS Unavailable Unavailab manolo Unavailable Unavailable Jose Segura DO Unavailable Henry DAIRY SUPPLIES SALES REPRESENTATIVE.SOCIAL WORKER, Rola Unavailable David Caputo MD Primary Care Provider Nate Hanson Unavailable [phone] Jose Segura DO Unavailable Henry DAIRY SUPPLIES SALES REPRESENTATIVE.SOCIAL WORKER, Rola Unavailable David Caputo MD Primary Care Provider David Caputo Unavailable Jose Segura DO Unavailable David Caputo MD Primary Care Provider David Caputo MD Primary Care Provider Jose Segura DO Unavailable Henry DAIRY SUPPLIES SALES REPRESENTATIVE.SOCIAL WORKER, Rola Unavailable David Caputo MD Primary Care Provider DR DAVID CAPUTO Admitting Unavailable DR DAVID CAPUTO Attending Unavailable CAPUTO, DR DAVID Meza Consulting [...] CAPUTO, DR DAVID Meza Primary Care Unavailable GRECHNY, SAIMA BHAGAT Consulting Unavailable Nefcy, Mar Consulting Unavailable ASHLY ., DENIES Consulting Unavailable PAGE, FER Diaz Consulting Unavailable [...] Dr. David Rodriguez Primary Care Unav ailable Caputo, Dr. David Rodriguez Primary Care Unav ailable Brady, Dr. Irving Gutiérrez Referring Unava ilable Brady, Dr. Irving Gutiérrez Attending Unava ilMD David Hillman Primary Care Provider MD Adriane Espitia Attending Provider Dr. Adriane Espitia Unavailable Unavailable Adriane Espitia Attending Unavailable David Caputo E Primary Care Unavailable Adriane Espitia Admitting Unavailable David Caputo Primary Care Unavailable Adriane Espitia Admitting Unavailable Adriane Espitia Attending Unavailable DAVID CAPUTO E Primary Care Unavailable ABHYANKAR, ZAHRA Referring Unavailable CAPUTO, DAVID E Primary Care Unavailable ABHYANKAR, ZAHRA Referring Unavailable CAPUTODAVID E Primary Care Unavailable CAPUTODAVID E Primary Care Unavailable ABHYANKAR, ZAHRA Referring [...] ZAHRA Referring Unavailable ROLA GORDON Attending Unavailable David Caputo MD E Primary Care Provider [phone] Allergies Allergy Classification Reported Allergen(s) Allergy Type Date of Onset Reaction(s) Facility (8 sources) Angiotensin Converting Enzyme (Ophelia) Inhibitors; Translations: [OPHELIA Inhibitors] Allergy to drug (finding) [place] [address] DO Work Phone: (1 source) patient allergy list reviewed by nurse or physicia Propensity to adverse reactions 8 Comment:Done Fiberspar Other (1 source) Allergies Reconciled Propensity to adverse reactions 1 Unknown Fiberspar Other Medications Current Medications Medication Drug Class(es) [...] BY MOUTH TWICE A DAY NEEDED for Jun, Active Start: 03-17-2018 take 1 tablet [...] once daily Cholecalciferol Oral Tablet 250 MCG (26324 UT) 1 tablet Tablet Oral Give 1 tablet by mouth every day shift related to 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) 01/28/2023 7:00:00 take 1 capsule by mouth once arjun ly Vitamin D3 1.25 MG (16608 UT) Oral Capsule TAKE 1 CAPSULE Daily Quantity: 0 Refills: 0 Ordered: 16-Sep-2022 DO Active Creon Oral Capsule Delayed Release Particles 61215-34077 UNIT (2 sources) Start: 02-08-2023 take 28029-77364 [IU] by mouth at mealtime Creon Oral Capsule Delayed Release Particles 36798-07793 UNIT 2 capsule Capsule Delayed Release Particles Oral Give 2 capsule by mouth with meals related to GASTRO-ESOPHAGEAL REFLUX DISEASE WITHOUT ESOPHAGITIS (K21.9);[facility] DIS 02/08/2023 12:00:00 Start: 01-23-2023 End: 02-08-2023 take 35794-07499 [IU] by mouth at mealtime Creon Oral Capsule Delayed Release Particles 67688-79865 UNIT 2 capsule Capsule Delayed Release Particles Oral Give 2 capsule by mouth with meals related to GASTRO-ESOPHAGEAL REFLUX DISEASE WITHOUT ESOPHAGITIS (K21.9);[facility] DIS 01/23/2023 17:00:00 02/08/2023 8:05:00 Aborted [...] Start: 01-24-2023 take 1 capsule by mo ut once daily FLUOXETINE HCL 20 MG CAPSULE{100 EA} 1 capsule Capsule Oral GIVE 1 CAPSULE BY MOUTH ONCE DAILY (FORMULARY EQUIVALENT FOR TABLET) 01/24/2023 7:00:00 Start: 11-13-2022 take 1 capsule by [facility] every twenty-four hours FLUoxetine HCl 40 MG 1 capsule Orally Once a day for 30 days October, Active Start: 08-13-2022 take 1 capsule by mo [facility] once daily FLUoxetine HCl 20 MG 1 capsule Orally Once a day for 90 days Jul, Active Start: 08-13-2022 take 1 capsule by [facility] every twenty-four hours FLUoxetine HCl 20 MG 1 capsule Orally Once a day for 90 days Jul, Active Start: 03-04-2019 take 20 mg by mouth once daily Fluoxetine Active 20 MG PO Daily March 04, 2019 12:00am Start: 03-17-2018 take 1 capsule by [facility] twice daily FLUoxetine HCl (PROZAC) 40 mg [...] sources) Biguanide Start: 08-07-19 18 End: 12-06-19 22 take 1000 mg by mouth twice daily [...] related to WHIPPLE'S DISEASE (K90.81) 01/24/2023 7:00:00 peg 3350-sod sulf,vasr-lal-fha 178.7-7.3-0.5 gram recon soln (1 source) Start: 07-17-2023 End: 07-18-2023 peg 3350-sod sulf,hzte-eup-zzm 178.7-7.3-0.5 gram recon soln Take 1 kit by mouth in the morning for 1 dose. Please see instructional sheet given by Physicians office. 1 each 0 07/17/2023 07/18/2023 Active True Metrix Blood Glucose Test - (13 [...] 11, 2017 August 18, 2017 1:02am amylase 308337 unt / lipase 75066 unt / protease 59162 unt delayed release oral capsule (20 sources) Start: 03-04-2019 End: 06-02-2023 take 2 capsules by mouth three times daily at mealtime rnsyxu-nfnzxoio-sl ylase (CREON 24) 24,000-76,000 -120,000 unit delayed release capsule Indications: Iron deficiency anemia, unspecified iron deficiency anemia type , Duodenal obstruction Take 2 capsules by mouth three times daily with meals. 540 capsule 1 11/28/2022 Active Comment on above: Take 2 capsules by m outh three times daily with meals. aspirin 162 [...] BEDTIME. Quantity: 90 Refills: 3 Ordered: 13-Feb-2023 Mau Chen Start : 13-Feb-2023 Active dose decrease Start: [...] Tablet Discontinued 10 MG PO before meals July 29, 2021 3:56pm October 15, 2021 1:45pm Comment on above: Take 10 mg by mouth once daily. Take 1 tablet by tripp th three times daily with meals. Take 1 tablet by tripp th once daily. TAKE ONE TABLET BY M OUTH THREE TIMES A DAY WITH MEALS nitroglycerin [...] 11:30am Start: 06-02-2018 take 1 capsule by [facility] once daily venlafaxine ER (EFFEXOR XR) 75 mg 24 hr capsule TAKE 1 CAPSULE BY MOUTH ONE TIME A DAY 0 06/02/2018 Active Comment on above: TAKE 1 CAPSULE BY FRANCISCO J ABARCA ONE TIME A DAY Problems Active Problems [...] body of pancreas] Chronic Cancer of stomach (2 sources) Personal history of other malignant neoplasm of stomach; Translations: [History of malignant neoplasm of stomach] Onset: 3 07-17-2023 Episodic Cardiac dysrhythmias (20 sources) Paroxysmal atrial [...] disease (20 sources) Atherosclerotic heart disease of [place] coronary artery without angina pectoris; Translations: [Ischemic [...] without hemorrhage or perforation] Onset: 8 Chronic Gastrointestinal hemorrhage (1 source) Rectal hemorrhage; Translations: [Hemorrhage of anus and rectum] 07-17-2023 Episodic Malaise and fatigue (20 sources) Weakness; Translations: [...] of anticoagulants] Episodic Other aftercare (1 source) 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; Translations: [GROUP HOME CURRNT USE ANTICOAGULANTS] Onset: 3 Episodic Other aftercare (1 source) Other group home (current) drug therapy; Translations: [OTH 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 CURRENT DRUG THERAPY] Onset: 3 Episodic Other [...] Unclassified (1 source) Athscl heart disease of yuhaaviat[place] coronary artery w/o ang pctrs / I25.10(ICD-9) [...] Reference Range Facility CNNURSEon 04-09-2023 CNNURSE Normal [facility] CBC W Auto Differential pane l (Bld)on 03-11-2023 Basophils (Bld) [#/Vol] 10*3/uL Normal <0.11 [facility] Comment on above: Order Comment: Speci men Type: BLOOD SPECIMENOrdering Facility: [facility] Address: [address] [place] [address] Performed By: #### 5 7021-8 ####[facility] LABCLIA [id number] [place] [address] Basophils/100 WBC (Bld) 0.2 % Normal [facility] Comment on above: Order Comment: Speci men Type: BLOOD SPECIMENOrdering Facility: [facility] Address: [address] [place] [address] Performed By: #### 5 7021-8 ####[facility] LABCLIA [id number] [place] [address] Differential cell count method Nom (Bld) Auto Normal [facility] Comment on above: Order Comment: Speci men Type: BLOOD SPECIMENOrdering Facility: [facility] Address: [address] [place] [address] Performed By: #### 5 7021-8 ####[facility] LABCLIA [id number] [place] [address] Eosinophils (Bld) [#/Vol] 0.18 10*3/uL Normal <0.46 [facility] Comment on above: Order Comment: Speci men Type: BLOOD SPECIMENOrdering Facility: [facility] Address: [address] [place], [place] [address] Performed By: #### 5 7021-8 ####[facility] LABCLIA [id number] [place] [address] Eosinophils/100 WBC (Bld) 2.9 % Normal [facility] Comment on above: Order Comment: Speci men Type: BLOOD SPECIMENOrdering Facility: [facility] Address: [address] [place] [address] Performed By: #### 5 7021-8 ####[facility] LABCLIA [id number] [place] [address] Erythrocyte distribution width (RBC) [Ratio] 13.5 % Normal 11.5-15.0 [facility] Comment on above: Order Comment: Speci men Type: BLOOD SPECIMENOrdering Facility: [facility] Address: [address] [place] [address] Performed By: #### 5 7021-8 ####[facility] LABIA [id number] [place] [address] Hematocrit (Bld) [Volume fraction] 32.3 % Low 39.0-51.0 [facility] Comment on above: Order Comment: Speci men Type: BLOOD SPECIMENOrdering Facility: [facility] Address: [address] [place] [address] Performed By: #### 5 7021-8 ####[facility] LABCLIA [id number] [place] [address] Hemoglobin (Bld) [Mass/Vol] 10.3 g/dL Low 13.0-17.0 [facility] Comment on above: Order Comment: Speci men Type: BLOOD SPECIMENOrdering Facility: [facility] Address: [address] [place] [address] Performed By: #### 5 7021-8 ####[facility] LABCLIA [id number] [place] [address] Immature granulocytes (Bld) [#/Vol] 10*3/uL Normal <0.10 [facility] Comment on above: Order Comment: Speci men Type: BLOOD SPECIMENOrdering Facility: [facility] Address: [address] [place] [address] Performed By: #### 5 7021-8 ####[facility] LABCLIA [id number] [place] [address] Immature granulocytes/100 WBC (Bld) 0.3 % Normal [facility] Comment on above: Order Comment: Speci men Type: BLOOD SPECIMENOrdering Facility: [facility] Address: [address] [place] [address] Performed By: #### 5 7021-8 ####[facility] LABCLIA [id number] [place] [address] Lymphocytes (Bld) [#/Vol] 1.81 10*3/uL Normal 1.00-4.00 [facility] Comment on above: Order Comment: Speci men Type: BLOOD SPECIMENOrdering Facility: [facility] Address: [address] [place] [address] Performed By: #### 5 7021-8 ####[facility] LABCLIA [id number] [place] [address] Lymphocytes/100 WBC (Bld) 28.8 % Normal [facility] Comment on above: Order Comment: Speci men Type: BLOOD SPECIMENOrdering Facility: [facility] Address: [address] [place] [address] Performed By: #### 5 7021-8 ####[facility] LABCLIA [id number] [place] [address] MCH (RBC) [Entitic mass] 31.6 pg Normal 26.0-34.0 [facility] Comment on above: Order Comment: Speci men Type: BLOOD SPECIMENOrdering Facility: [facility] Address: [address] [place] [address] Performed By: #### 5 7021-8 ####[facility] LABCLIA [id number] [place] [address] MCHC (RBC) [Mass/Vol] 31.9 g/dL Normal 30.5-36.0 [facility] Comment on above: Order Comment: Speci men Type: BLOOD SPECIMENOrdering Facility: [facility] Address: [address] [place] [address] Performed By: #### 5 7021-8 ####[facility] LABCLIA [id number] [place] [address] MCV (RBC) [Entitic vol] 99.1 fL Normal 80.0-100.0 [facility] Comment on above: Order Comment: Speci men Type: BLOOD SPECIMENOrdering Facility: [facility] Address: [address] [place] [address] Performed By: #### 5 7021-8 ####[facility] LABIA [id number] [place] [address] Monocytes (Bld) [#/Vol] 0.66 10*3/uL Normal <0.87 [facility] Comment on above: Order Comment: Speci men Type: BLOOD SPECIMENOrdering Facility: [facility] Address: [address] [place] [address] Performed By: #### 5 7021-8 ####[facility] LABCLIA [id number] [place] [address] Monocytes/100 WBC (Bld) 10.5 % Normal [facility] Comment on above: Order Comment: Speci men Type: BLOOD SPECIMENOrdering Facility: [facility] Address: [address] [place] [address] Performed By: #### 5 7021-8 ####[facility] LABIA [id number] [place] [address] Neutrophils (Bld) [#/Vol] 3.60 10*3/uL Normal 1.45-7.50 [facility] Comment on above: Order Comment: Speci men Type: BLOOD SPECIMENOrdering Facility: [facility] Address: [address] [place] [address] Performed By: #### 5 7021-8 ####[facility] LABCLIA [id number] [place] [address] Neutrophils/100 WBC (Bld) 57.3 % Normal [facility] Comment on above: Order Comment: Speci men Type: BLOOD SPECIMENOrdering Facility: [facility] Address: [address] [place] [address] Performed By: #### 5 7021-8 ####[facility] LABCLIA [id number] [place] [address] Nucleated RBC (Bld) [#/Vol] 10*3/uL Normal <0.01 [facility] Comment on above: Order Comment: Speci men Type: BLOOD SPECIMENOrdering Facility: [facility] Address: [address] [place] [address] Performed By: #### 5 7021-8 ####[facility] LABCLIA [id number] [place] [address] Nucleated RBC/100 WBC (Bld) [Ratio] 0.0 /100 WBC Normal [facility] Comment on above: Order Comment: Speci men Type: BLOOD SPECIMENOrdering Facility: [facility] Address: [address] [place] [address] Performed By: #### 5 7021-8 ####[facility] LABCLIA [id number] [place] [address] Platelet mean volume (Bld) [Entitic vol] 9.3 fL Normal 9.0-12.7 [facility] Comment on above: Order Comment: Speci men Type: BLOOD SPECIMENOrdering Facility: [facility] Address: [address] [place] [address] Performed By: #### 5 7021-8 ####[facility] LABCLIA [id number] [place] [address] Platelets (Bld) [#/Vol] 298 10*3/uL Normal 150-400 [facility] Comment on above: Order Comment: Speci men Type: BLOOD SPECIMENOrdering Facility: [facility] Address: [address] [place] [address] Performed By: #### 5 7021-8 ####[facility] LABCLIA [id number] [place] [address] RBC (Bld) [#/Vol] 3.26 10*6/uL Low 4.20-6.00 [facility] Comment on above: Order Comment: Speci men Type: BLOOD SPECIMENOrdering Facility: [facility] Address: [address] [place] [address] Performed By: #### 5 7021-8 ####[facility] LABCLIA [id number] [place] [address] WBC (Bld) [#/Vol] 6.28 10*3/uL Normal 3.70-11.00 [facility] Comment on above: Order Comment: Speci men Type: BLOOD SPECIMENOrdering Facility: [facility] Address: [address] [place] [address] Performed By: #### 5 7021-8 ####[facility] LABCLIA [id number] [place] [address] CNNURSEon 03-11-2023 CNNURSE Normal [facility] CNOVSPon 03-11-2023 CNOVSP Normal [facility] CNPNon 03-11-2023 CNPN Normal [facility] Comprehensive metabolic 2000 panelon 03-11-2023 Albumin [Mass/Vol] 3.5 g/dL Low 3.9-4.9 [facility] Comment on above: Order Comment: Speci men Type: BLOOD SPECIMENOrdering Facility: [facility] Address: [address] [place] [address] Performed By: #### 2 4323-8 ####[facility] LABCLIA [id number] [place] [address] ALP [Catalytic activity/Vol] 107 U/L Normal 38-113 [facility] Comment on above: Order Comment: Speci men Type: BLOOD SPECIMENOrdering Facility: [facility] Address: [address] [address] Performed By: #### 2 4323-8 ####[facility] LABCLIA [id number] [place] [address] ALT [Catalytic activity/Vol] 17 U/L Normal 10-54 [facility] Comment on above: Order Comment: Speci men Type: BLOOD SPECIMENOrdering Facility: [facility] Address: [address] [place] [address] Performed By: #### 2 4323-8 ####[facility] LABCLIA [id number] [place] [address] Anion gap [Moles/Vol] 11 mmol/L Normal 9-18 [facility] Comment on above: Order Comment: Speci men Type: BLOOD SPECIMENOrdering Facility: [facility] Address: [address] [place] [address] Performed By: #### 2 4323-8 ####[facility] LABCLIA [id number] [place] [address] AST [Catalytic activity/Vol] 18 U/L Normal 14-40 [facility] Comment on above: Order Comment: Speci men Type: BLOOD SPECIMENOrdering Facility: [facility] Address: [address] [place] [address] Performed By: #### 2 4323-8 ####[facility] LABCLIA [id number] [place] [address] Bilirubin [Mass/Vol] 0.3 mg/dL Normal 0.2-1.3 [facility] Comment on above: Order Comment: Speci men Type: BLOOD SPECIMENOrdering Facility: [facility] Address: [address] [address] Performed By: #### 2 4323-8 ####[facility] LABCLIA [id number] [place] [address] Calcium [Mass/Vol] 9.3 mg/dL Normal 8.5-10.2 [facility] Comment on above: Order Comment: Speci men Type: BLOOD SPECIMENOrdering Facility: [facility] Address: [address] [address] Performed By: #### 2 4323-8 ####[facility] LABCLIA [id number] [place] [address] Chloride [Moles/Vol] 106 mmol/L High 97-105 [facility] Comment on above: Order Comment: Speci men Type: BLOOD SPECIMENOrdering Facility: [facility] Address: [address] [place] [address] Performed By: #### 2 4323-8 ####[facility] LABCLIA [id number] [place] [address] CO2 [Moles/Vol] 22 mmol/L Normal 22-30 [facility] Comment on above: Order Comment: Speci men Type: BLOOD SPECIMENOrdering Facility: [facility] Address: [address] [place] [address] Performed By: #### 2 4323-8 ####[facility] LABCLIA [id number] [place] [address] Creatinine [Mass/Vol] 0.77 mg/dL Normal 0.73-1.22 [facility] Comment on above: Order Comment: Speci men Type: BLOOD SPECIMENOrdering Facility: [facility] Address: [address] [place] [address] Performed By: #### 2 4323-8 ####[facility] LABCLIA [id number] [place] [address] Creatinine and Glomerular filtration rate.predicted panel (S/P/Bld) 99 mL/min/1.73m??? Normal >=60 [facility] Comment on above: Order Comment: Frank real Type: BLOOD SPECIMENOrdering Facility: [facility] Address: [address] [place] [phone] Result Comment: Megan mated Glomerular Filtration Rate [...] actual GFR. Performed By: #### 2 4323-8 ####[facility] LABCLIA [id number] [place] [address] Glucose [Mass/Vol] 117 mg/dL High 74-99 [facility] Comment on above: Order Comment: Frank real Type: BLOOD SPECIMENOrdering Facility: [facility] Address: [address] [place] [phone] Result Comment: The [place] [employer] (ADA) provides guidance for cutoff [...] Standards of Medical Care in Diabetes 2016, [place] [employer]. Diabetes Care. 2016.39(Suppl 1). Performed By: #### 2 4323-8 ####[facility] LABCLIA [id number] [place] [address] Potassium [Moles/Vol] 4.2 mmol/L Normal 3.7-5.1 [facility] Comment on above: Order Comment: Frank real Type: BLOOD SPECIMENOrdering Facility: [facility] Address: [address] [address] Performed By: #### 2 4323-8 ####[facility] LABCLIA [id number] [place] [address] Protein [Mass/Vol] 6.8 g/dL Normal 6.3-8.0 [facility] Comment on above: Order Comment: Speci men Type: BLOOD SPECIMENOrdering Facility: [facility] Address: [address] [address] Performed By: #### 2 4323-8 ####[facility] LABCLIA [id number] [place] [address] Sodium [Moles/Vol] 139 mmol/L Normal 136-144 [facility] Comment on above: Order Comment: Speci men Type: BLOOD SPECIMENOrdering Facility: [facility] Address: [address] [address] Performed By: #### 2 4323-8 ####[facility] LABCLIA [id number] [place] [address] Urea nitrogen [Mass/Vol] 22 mg/dL Normal 9-24 [facility] Comment on above: Order Comment: Speci men Type: BLOOD SPECIMENOrdering Facility: [facility] Address: [address] [place] [address] Performed By: #### 2 4323-8 ####[facility] LABCLIA [id number] [place] [address] Ferritin SerPl-mCncon 2022 Ferritin [Mass/Vol] 302.0 ng/mL Normal 30.3-565.7 [facility] Comment on above: Order Comment: Speci men Type: BLOOD SPECIMENOrdering Facility: [facility] Address: [address] [address] Performed By: #### 5 0190-8, 2132-9, 2276-4 ####[facility] LABCLIA [id number] [address] [place] Iron and Iron binding capaci ty panelon 03-11-2023 Iron [Mass/Vol] 37 ug/dL Low 41-186 [facility] Comment on above: Order Comment: Speci men Type: BLOOD SPECIMENOrdering Facility: [facility] Address: [address] [place] [address] Performed By: #### 5 0190-8, 9, 2275-09 ####[facility] LABIA [id number] [place] [address] [place] Iron binding capacity [Mass/Vol] Normal [facility] Comment on above: Order Comment: Speci men Type: BLOOD SPECIMENOrdering Facility: [facility] Address: [address] [place] [address] Result Comment: Unab le to calculate due to hemolysis. Performed By: #### 5 0190-8, 2132-02, 2275-09 ####[facility] LABIA [id number] [address] [place] Iron/TIBC [Molar ratio] Normal [facility] Comment on above: Order Comment: Speci men Type: BLOOD SPECIMENOrdering Facility: [facility] Address: [address] [place] [address] Result Comment: Unab le to calculate due to hemolysis. Performed By: #### 5 0190-8, 9, 2275-09 ####[facility] LABIA [id number] [place] [address] [place] NM PET/CT SKULL-THIGH INITon 03-11-2023 NM PET/CT SKULL-THIGH INIT Normal [facility] Vit B12 SerPl-mCncon 023 Cobalamin (Vitamin B12) [Mass/Vol] 758 pg/mL Normal 232-1245 [facility] Comment on above: Order Comment: Speci men Type: BLOOD SPECIMENOrdering Facility: [facility] Address: [address] [place], [place] [address] Performed By: #### 5 0190-8, 2132-9, 2276-4 ####[facility] LABCLIA [id number] [facility] [place] [address] [place] CNPNon 03-05-2023 CNPN Normal [facility] CBC W Auto Differential pane l (Bld)on 02-19-2023 Basophils (Bld) [#/Vol] 10*3/uL Normal <0.11 [facility] Comment on above: Order Comment: Speci men Type: BLOOD SPECIMENOrdering Facility: [facility] Address: [address] [address] Performed By: #### 5 7021-8 ####[facility] LABCLIA [id number] [place] [address] Basophils/100 WBC (Bld) 0.4 % Normal [facility] Comment on above: Order Comment: Speci men Type: BLOOD SPECIMENOrdering Facility: [facility] Address: [address] [address] Performed By: #### 5 7021-8 ####[facility] LABCLIA [id number] [place] [address] Differential cell count method Nom (Bld) Auto Normal [facility] Comment on above: Order Comment: Speci men Type: BLOOD SPECIMENOrdering Facility: [facility] Address: [address] [address] Performed By: #### 5 7021-8 ####[facility] LABCLIA [id number] [place] [address] Eosinophils (Bld) [#/Vol] 0.15 10*3/uL Normal <0.46 [facility] Comment on above: Order Comment: Speci men Type: BLOOD SPECIMENOrdering Facility: [facility] Address: [address] [address] Performed By: #### 5 7021-8 ####[facility] LABCLIA [id number] [place] [address] Eosinophils/100 WBC (Bld) 3.2 % Normal [facility] Comment on above: Order Comment: Speci men Type: BLOOD SPECIMENOrdering Facility: [facility] Address: [address] [place] [address] Performed By: #### 5 7021-8 ####[facility] LABCLIA [id number] [place] [address] Erythrocyte distribution width (RBC) [Ratio] 13.3 % Normal 11.5-15.0 [facility] Comment on above: Order Comment: Speci men Type: BLOOD SPECIMENOrdering Facility: [facility] Address: [address] [place] [address] Performed By: #### 5 7021-8 ####[facility] LABIA [id number] [place] [address] Hematocrit (Bld) [Volume fraction] 30.7 % Low 39.0-51.0 [facility] Comment on above: Order Comment: Speci men Type: BLOOD SPECIMENOrdering Facility: [facility] Address: [address] [place] [address] Performed By: #### 5 7021-8 ####[facility] LABIA [id number] [place] [address] Hemoglobin (Bld) [Mass/Vol] 9.8 g/dL Low 13.0-17.0 [facility] Comment on above: Order Comment: Speci men Type: BLOOD SPECIMENOrdering Facility: [facility] Address: [address] [place] [address] Performed By: #### 5 7021-8 ####[facility] LABIA [id number] [place] [address] Immature granulocytes (Bld) [#/Vol] 10*3/uL Normal <0.10 [facility] Comment on above: Order Comment: Speci men Type: BLOOD SPECIMENOrdering Facility: [facility] Address: [address] [place] [address] Performed By: #### 5 7021-8 ####[facility] LABCLIA [id number] [place] [address] Immature granulocytes/100 WBC (Bld) 0.2 % Normal [facility] Comment on above: Order Comment: Speci men Type: BLOOD SPECIMENOrdering Facility: [facility] Address: [address] [place] [address] Performed By: #### 5 7021-8 ####[facility] LABCLIA [id number] [place] [address] Lymphocytes (Bld) [#/Vol] 1.19 10*3/uL Normal 1.00-4.00 [facility] Comment on above: Order Comment: Speci men Type: BLOOD SPECIMENOrdering Facility: [facility] Address: [address] [place] [address] Performed By: #### 5 7021-8 ####[facility] LABIA [id number] [place] [address] Lymphocytes/100 WBC (Bld) 25.4 % Normal [facility] Comment on above: Order Comment: Speci men Type: BLOOD SPECIMENOrdering Facility: [facility] Address: [address] [place] [address] Performed By: #### 5 7021-8 ####[facility] LABCLIA [id number] [place] [address] MCH (RBC) [Entitic mass] 31.6 pg Normal 26.0-34.0 [facility] Comment on above: Order Comment: Speci men Type: BLOOD SPECIMENOrdering Facility: [facility] Address: [address] [place] [address] Performed By: #### 5 7021-8 ####[facility] LABIA [id number] [place] [address] MCHC (RBC) [Mass/Vol] 31.9 g/dL Normal 30.5-36.0 [facility] Comment on above: Order Comment: Speci men Type: BLOOD SPECIMENOrdering Facility: [facility] Address: [address] [place] [address] Performed By: #### 5 7021-8 ####[facility] LABCLIA [id number] [place] [address] MCV (RBC) [Entitic vol] 99.0 fL Normal 80.0-100.0 [facility] Comment on above: Order Comment: Speci men Type: BLOOD SPECIMENOrdering Facility: [facility] Address: [address] [place] [address] Performed By: #### 5 7021-8 ####[facility] LABCLIA [id number] [place] [address] Monocytes (Bld) [#/Vol] 0.37 10*3/uL Normal <0.87 [facility] Comment on above: Order Comment: Speci men Type: BLOOD SPECIMENOrdering Facility: [facility] Address: [address] [place] [address] Performed By: #### 5 7021-8 ####[facility] LABCLIA [id number] [place] [address] Monocytes/100 WBC (Bld) 7.9 % Normal [facility] Comment on above: Order Comment: Speci men Type: BLOOD SPECIMENOrdering Facility: [facility] Address: [address] [place] [address] Performed By: #### 5 7021-8 ####[facility] LABIA [id number] [place] [address] Neutrophils (Bld) [#/Vol] 2.94 10*3/uL Normal 1.45-7.50 [facility] Comment on above: Order Comment: Speci men Type: BLOOD SPECIMENOrdering Facility: [facility] Address: [address] [place] [address] Performed By: #### 5 7021-8 ####[facility] LABCLIA [id number] [place] [address] Neutrophils/100 WBC (Bld) 62.9 % Normal [facility] Comment on above: Order Comment: Speci men Type: BLOOD SPECIMENOrdering Facility: [facility] Address: [address] [place] [address] Performed By: #### 5 7021-8 ####[facility] LABCLIA [id number] [place] [address] Nucleated RBC (Bld) [#/Vol] 10*3/uL Normal <0.01 [facility] Comment on above: Order Comment: Speci men Type: BLOOD SPECIMENOrdering Facility: [facility] Address: [address] [place] [address] Performed By: #### 5 7021-8 ####[facility] LABCLIA [id number] [place] [address] Nucleated RBC/100 WBC (Bld) [Ratio] 0.0 /100 WBC Normal [facility] Comment on above: Order Comment: Speci men Type: BLOOD SPECIMENOrdering Facility: [facility] Address: [address] [place] [address] Performed By: #### 5 7021-8 ####[facility] LABCLIA [id number] [place] [address] Platelet mean volume (Bld) [Entitic vol] 8.9 fL Low 9.0-12.7 [facility] Comment on above: Order Comment: Speci men Type: BLOOD SPECIMENOrdering Facility: [facility] Address: [address] [place] [address] Performed By: #### 5 7021-8 ####[facility] LABCLIA [id number] [place] [address] Platelets (Bld) [#/Vol] 266 10*3/uL Normal 150-400 [facility] Comment on above: Order Comment: Speci men Type: BLOOD SPECIMENOrdering Facility: [facility] Address: [address] [place] [address] Performed By: #### 5 7021-8 ####[facility] LABCLIA [id number] [place] [address] RBC (Bld) [#/Vol] 3.10 10*6/uL Low 4.20-6.00 [facility] Comment on above: Order Comment: Speci men Type: BLOOD SPECIMENOrdering Facility: [facility] Address: [address] [place] [address] Performed By: #### 5 7021-8 ####[facility] LABIA [id number] [place] [address] WBC (Bld) [#/Vol] 4.68 10*3/uL Normal 3.70-11.00 [facility] Comment on above: Order Comment: Speci men Type: BLOOD SPECIMENOrdering Facility: [facility] Address: [address] [place] [address] Performed By: #### 5 7021-8 ####[facility] LABIA [id number] [place] [address] CNNURSEon 02-19-2023 CNNURSE Normal [facility] CNOVSPon 02-19-2023 CNOVSP Normal [facility] Comprehensive metabolic 2000 panelon 02-19-2023 Albumin [Mass/Vol] 3.8 g/dL Low 3.9-4.9 [facility] Comment on above: Order Comment: Speci men Type: BLOOD SPECIMENOrdering Facility: [facility] Address: [address] [place], [place] [address] Performed By: #### 2 4323-8 ####[facility] LABIA [id number] [place] [address] ALP [Catalytic activity/Vol] 112 U/L Normal 38-113 [facility] Comment on above: Order Comment: Speci men Type: BLOOD SPECIMENOrdering Facility: [facility] Address: [address] [address] Performed By: #### 2 4323-8 ####[facility] LABCLIA [id number] [place] [address] ALT [Catalytic activity/Vol] 17 U/L Normal 10-54 [facility] Comment on above: Order Comment: Speci men Type: BLOOD SPECIMENOrdering Facility: [facility] Address: [address] [address] Performed By: #### 2 4323-8 ####[facility] LABCLIA [id number] [place] [address] Anion gap [Moles/Vol] 11 mmol/L Normal 9-18 [facility] Comment on above: Order Comment: Speci men Type: BLOOD SPECIMENOrdering Facility: [facility] Address: [address] [place] [address] Performed By: #### 2 4323-8 ####[facility] LABCLIA [id number] [place] [address] AST [Catalytic activity/Vol] 16 U/L Normal 14-40 [facility] Comment on above: Order Comment: Speci men Type: BLOOD SPECIMENOrdering Facility: [facility] Address: [address] [address] Performed By: #### 2 4323-8 ####[facility] LABCLIA [id number] [place] [address] Bilirubin [Mass/Vol] 0.2 mg/dL Normal 0.2-1.3 [facility] Comment on above: Order Comment: Speci men Type: BLOOD SPECIMENOrdering Facility: [facility] Address: [address] [place] [address] Performed By: #### 2 4323-8 ####[facility] LABCLIA [id number] [place] [address] Calcium [Mass/Vol] 9.6 mg/dL Normal 8.5-10.2 [facility] Comment on above: Order Comment: Speci men Type: BLOOD SPECIMENOrdering Facility: [facility] Address: [address] [place] [address] Performed By: #### 2 4323-8 ####[facility] LABCLIA [id number] [place] [address] Chloride [Moles/Vol] 106 mmol/L High 97-105 [facility] Comment on above: Order Comment: Speci men Type: BLOOD SPECIMENOrdering Facility: [facility] Address: [address] [place] [address] Performed By: #### 2 4323-8 ####[facility] LABCLIA [id number] [place] [address] CO2 [Moles/Vol] 20 mmol/L Low 22-30 [facility] Comment on above: Order Comment: Speci men Type: BLOOD SPECIMENOrdering Facility: [facility] Address: [address] [place] [address] Performed By: #### 2 4323-8 ####[facility] LABCLIA [id number] [place] [address] Creatinine [Mass/Vol] 0.72 mg/dL Low 0.73-1.22 [facility] Comment on above: Order Comment: Speci men Type: BLOOD SPECIMENOrdering Facility: [facility] Address: [address] [place] [address] Performed By: #### 2 4323-8 ####[facility] LABCLIA [id number] [place] [address] Creatinine and Glomerular filtration rate.predicted panel (S/P/Bld) 101 mL/min/1.73m??? Normal >=60 [facility] Comment on above: Order Comment: Speci men Type: BLOOD SPECIMENOrdering Facility: [facility] Address: [address] [id number] Result Comment: Megan mated Glomerular Filtration Rate [...] actual GFR. Performed By: #### 2 4323-8 ####[facility] LABCLIA [id number] [place] [address] Glucose [Mass/Vol] 165 mg/dL High 74-99 [facility] Comment on above: Order Comment: Frank real Type: BLOOD SPECIMENOrdering Facility: [facility] Address: [address] [place] [address] Result Comment: The [place] [employer] (ADA) provides guidance for cutoff [...] Standards of Medical Care in Diabetes 2016, [place] [employer]. Diabetes Care. 2016.39(Suppl 1). Performed By: #### 2 4323-8 ####[facility] LABCLIA [id number] [place] [address] Potassium [Moles/Vol] 4.2 mmol/L Normal 3.7-5.1 [facility] Comment on above: Order Comment: Frank real Type: BLOOD SPECIMENOrdering Facility: [facility] Address: [address] [address] Performed By: #### 2 4323-8 ####[facility] LABCLIA [id number] [place] [address] Protein [Mass/Vol] 7.0 g/dL Normal 6.3-8.0 [facility] Comment on above: Order Comment: Speci men Type: BLOOD SPECIMENOrdering Facility: [facility] Address: [address] [address] Performed By: #### 2 4323-8 ####[facility] LABCLIA [id number] [place] [address] Sodium [Moles/Vol] 137 mmol/L Normal 136-144 [facility] Comment on above: Order Comment: Speci men Type: BLOOD SPECIMENOrdering Facility: [facility] Address: [address] [address] Performed By: #### 2 4323-8 ####[facility] LABCLIA [id number] [place] [address] Urea nitrogen [Mass/Vol] 22 mg/dL Normal 9-24 [facility] Comment on above: Order Comment: Speci men Type: BLOOD SPECIMENOrdering Facility: [facility] Address: [address] [address] Performed By: #### 2 4323-8 ####[facility] LABCLIA [id number] [place] [address] Ferritin SerPl-mCncon 2022 Ferritin [Mass/Vol] 247.0 ng/mL Normal 30.3-565.7 [facility] Comment on above: Order Comment: Speci men Type: BLOOD SPECIMENOrdering Facility: [facility] Address: [address] [address] Performed By: #### 5 0190-8, 2132-9, 2276-4, 2284-8 ####[facility] LABCLIA [id number] [facility] [place]89[place] [address] [place] Folate SerPl-mCncon 02-20-20 23 Folate [Mass/Vol] ng/mL Normal >4.7 [facility] Comment on above: Order Comment: Speci men Type: BLOOD SPECIMENOrdering Facility: [facility] Address: [address] [place] [address] Result Comment: A re sult of > 20 ng/mL is not necessarily indicative of a pathologic or treatable condition: it reflects a limitation of the test methodology.Assay reference range: 4.8 to 24.2 ng/mL. Suitable for detection of folate deficiency.Reference:Folate III (Folate III) [package insert V 1.0 Sami]. Jagdish [employer], [place], [place]: April 2015. Performed By: #### 5 0190-8, 9, 2275-09, 2284-01 ####[facility] LABCLIA [id number] [place] [address] [place] Iron and Iron binding capaci ty panelon 02-19-2023 Iron [Mass/Vol] 30 ug/dL Low 41-186 [facility] Comment on above: Order Comment: Speci men Type: BLOOD SPECIMENOrdering Facility: [facility] Address: [address] [place] [address] Performed By: #### 5 0190-8, 9, 2275-09, 2284-01 ####[facility] LABIA [id number] [place] [address] [place] Iron binding capacity [Mass/Vol] 208 ug/dL Low 232-386 [facility] Comment on above: Order Comment: Speci men Type: BLOOD SPECIMENOrdering Facility: [facility] Address: [address] [place] [address] Performed By: #### 5 0190-8, 9, 2275-09, 2284-01 ####[facility] LABCLIA [id number] [address] [place] Iron/TIBC [Molar ratio] 14.4 % Low 15.0-57.0 [facility] Comment on above: Order Comment: Speci men Type: BLOOD SPECIMENOrdering Facility: [facility] Address: [place] [address] Performed By: #### 5 0190-8, 2132-02, 2275-09, 2284-01 ####[facility] LABCLIA [id number] [address] [place] [id number] [place] Vit B12 SerPl-mCncon 023 Cobalamin (Vitamin B12) [Mass/Vol] 636 pg/mL Normal 232-1245 [facility] Comment on above: Order Comment: Speci men Type: BLOOD SPECIMENOrdering Facility: [facility] Address: [address] [address] Performed By: #### 5 0190-8, 2132-02, 2275-09, 2284-01 ####[facility] LABCLIA [id number] [place] [address] [place] CNPNon 02-17-2023 CNPN Normal [facility] Albumin Levelon 02-10-2023 Albumin [Mass/Vol] 3.4 g/dL Low 3.5-5.7 [facility] Comment on above: Order Comment: Diagn osis: E11.9, I10, E46, D64.9 Comment: [id number], DECLAN, RM112, , 02/06/23 Result Comment: PERF ORMED BY: [facility] [address] [place] [address] PATHOLOGIST [employer]ILITY WORKER FORGE ESTIVEN GENTILE M.D. Performed By: #### A LB, BMP, CBC #### [facility] [address] Albumin [Mass/volume] in Ser um or Plasma by Bromocresol green (BCG) dye binding methoOrdered By: Adriane Espitia on 02-10-2023 Albumin BCG dye [Mass/Vol] 3.4 g/dL 3.5-5.7 [facility] Basic Metabolic Panelon 01-27 Anion gap [Moles/Vol] 11.5 mmol/L Normal 6.0-15.0 [facility] Comment on above: Order Comment: Diagn osis: E11.9, I10, E46, D64.9 Comment: [id number], OGONTZ, RM112, HM, 02/06/23 Performed By: #### A LB, BMP, CBC #### [facility] [address] Calcium [Mass/Vol] 8.8 mg/dL Normal 8.6-10.3 [facility] Comment on above: Order Comment: Diagn osis: E11.9, I10, E46, D64.9 Comment: [id number], OGONTZ, RM112, HM, 02/06/23 Performed By: #### A LB, BMP, CBC #### [facility] [address] [id number] [facility] Chloride [Moles/Vol] 103 mmol/L Normal 98-107 [facility] Comment on above: Order Comment: Diagn osis: E11.9, I10, E46, D64.9 Comment: [id number], OGONTZ, RM112, HM, 02/06/23 Performed By: #### A LB, BMP, CBC #### [facility] [address] CO2 [Moles/Vol] 25.2 mmol/L Normal 21.0-31.0 [facility] Comment on above: Order Comment: Diagn osis: E11.9, I10, E46, D64.9 Comment: [id number], OGONTZ, RM112, , 02/06/23 Performed By: #### A LB, BMP, CBC #### [facility] [address] [id number] [facility] Creatinine [Mass/Vol] 0.65 mg/dL Low 0.70-1.30 [facility] Comment on above: Order Comment: Diagn osis: E11.9, I10, E46, D64.9 Comment: [id number], OGONTZ, RM112, HM, 02/06/23 Performed By: #### A LB, BMP, CBC #### [facility] [address] [place] [address] [place] GFR/1.73 sq M.predicted MDRD (S/P/Bld) [Vol rate/Area] mL/min/{1.73_m2} Normal [facility] Comment on above: Order Comment: Diagn osis: E11.9, I10, E46, D64.9 Comment: [id number], DECLAN, RM112, , 02/06/23 Performed By: #### A VIPIN HIGGINBOTHAM, CBC #### [facility] [address] [id number] [facility] Glucose [Mass/Vol] 102 mg/dL High 70-100 [facility] Comment on above: Order Comment: Diagn osis: E11.9, I10, E46, D64.9 Comment: [id number], DECLAN, RM112, , 02/06/23 Result Comment: [facility][note 3] Glucose Reference Range is dependent on time and content of last meal. Glucose of more than 200 mg/dL in a nonstressed, ambulatory subject supports the diagnosis of Diabetes Mellitus. ADA recommended reference range Performed By: #### A VIPIN HIGGINBOTHAM, CBC #### [facility] [address] [id number] [facility] Potassium [Moles/Vol] 4.7 mmol/L Normal 3.5-5.1 [facility] Comment on above: Order Comment: Diagn osis: E11.9, I10, E46, D64.9 Comment: [id number], DECLAN, RM112, , 02/06/23 Performed By: #### A VIPIN HIGGINBOTHAM, CBC #### [facility] [address] [place] [address] [facility] Sodium [Moles/Vol] 135 mmol/L Low 136-145 [facility] Comment on above: Order Comment: Diagn osis: E11.9, I10, E46, D64.9 Comment: [id number], DECLAN, RM112, , 02/06/23 Performed By: #### A VIPIN HIGGINBOTHAM, CBC #### [facility] [address] [place] [address] [place] Urea nitrogen [Mass/Vol] 19 mg/dL Normal 7-25 [facility] Comment on above: Order Comment: Diagn osis: E11.9, I10, E46, D64.9 Comment: [id number], ALYSSIA MANRIQUEZ, , 02/06/23 Performed By: #### A LB, BMP, CBC #### [facility] [address] Basophils Auto (Bld) [#/Vol] Ordered By: Adriane Espitia on 02-10-2023 Basophils (Bld) [#/Vol] 0.0 10*3/uL 0.0-0.2 [facility] Basophils/100 WBC Auto (Bld) Ordered By: Adriane Espitia on 02-10-2023 Basophils/100 WBC (Bld) 0.4 % . [facility] Calcium [Mass/volume] in Ser um or PlasmaOrdered By: Adriane Espitia on 02-10-2023 Calcium [Mass/Vol] 8.8 mg/dL 8.6-10.3 [facility] Carbon dioxide, total [Moles /volume] in Serum or PlasmaOrdered By: Adriane Espitia on 02-10-2023 CO2 [Moles/Vol] 25.2 mmol/L 21.0-31.0 [facility] Chloride [Moles/volume] in S brandi or PlasmaOrdered By: Adriane Espitia on 02-10-2023 Chloride [Moles/Vol] 103 mmol/L 98-107 [facility] Complete Blood Count Auto Di ffon 02-10-2023 Basophils (Bld) [#/Vol] 0.0 10*3/uL Normal 0.0-0.2 [facility] Comment on above: Order Comment: Diagn osis: E11.9, I10, E46, D64.9 Comment: [id number], ALYSSIA, , 02/06/23 Result Comment: PERF ORMED BY: [place] [address] PATHOLOGIST UTILITY WORKER [employer] ESTIVEN GENTILE M.D. Performed By: #### A LB, BMP, CBC #### [facility] [address] Basophils/100 WBC (Bld) 0.4 % Normal . [facility] Comment on above: Order Comment: Diagn osis: E11.9, I10, E46, D64.9 Comment: [id number], OGONTZ, RM112, HM, 02/06/23 Performed By: #### A LB, BMP, CBC #### [address] Eosinophils (Bld) [#/Vol] 0.1 10*3/uL Normal 0.0-0.45 [facility] Comment on above: Order Comment: Diagn osis: E11.9, I10, E46, D64.9 Comment: [id number], OGONTZ, RM112, HM, 02/06/23 Performed By: #### A LB, BMP, CBC #### [address] Eosinophils/100 WBC (Bld) 3.1 % Normal . [facility] Comment on above: Order Comment: Diagn osis: E11.9, I10, E46, D64.9 Comment: [id number], OGONTZ, RM112, HM, 02/06/23 Performed By: #### A LB, BMP, CBC #### [address] Erythrocyte distribution width (RBC) [Ratio] 14.4 % Normal 12.0-14.8 [facility] Comment on above: Order Comment: Diagn osis: E11.9, I10, E46, D64.9 Comment: [id number], OGONTZ, RM112, , 02/06/23 Performed By: #### A LB, BMP, CBC #### [address] Hematocrit (Bld) [Volume fraction] 30.9 % Low 38.8-50.0 [facility] Comment on above: Order Comment: Diagn osis: E11.9, I10, E46, D64.9 Comment: [id number], OGONTZ, RM112, HM, 02/06/23 Performed By: #### A LB, BMP, CBC #### [address] Hemoglobin (Bld) [Mass/Vol] 10.3 g/dL Low 13.0-17.0 [facility] Comment on above: Order Comment: Diagn osis: E11.9, I10, E46, D64. Comment: [id number], OGONTZ, RM112, HM, 02/06/23 Performed By: #### A LB, BMP, CBC #### [facility] [address] Lymphocytes (Bld) [#/Vol] 1.3 10*3/uL Normal 1.00-4.8 [facility] Comment on above: Order Comment: Diagn osis: E11.9, I10, E46, D64. Comment: [id number], OGONTZ, RM112, , 02/06/23 Performed By: #### A LB, BMP, CBC #### [address] Lymphocytes/100 WBC (Bld) 28.3 % Normal . [facility] Comment on above: Order Comment: Diagn osis: E11.9, I10, E46, D64. Comment: [id number], OGONTZ, RM112, , 02/06/23 Performed By: #### A LB, BMP, CBC #### [address] MCH (RBC) [Entitic mass] 32.0 pg Normal 27.5-35.2 [facility] Comment on above: Order Comment: Diagn osis: E11.9, I10, E46, D64. Comment: [id number], OGONTZ, RM112, HM, 02/06/23 Performed By: #### A LB, BMP, CBC #### [facility] [address] [place], [place] [id number] [facility] MCV (RBC) [Entitic vol] 96.3 fL Normal 83.5-101 [facility] Comment on above: Order Comment: Diagn osis: E11.9, I10, E46, D64. Comment: [id number], OGONTZ, RM112, HM, 02/06/23 Performed By: #### A LB, BMP, CBC #### [facility] [address] Mean Corpuscular HGB Conc 33.3 g/dL Normal 32.5-35.6 [facility] Comment on above: Order Comment: Diagn osis: E11.9, I10, E46, D64.9 Comment: [id number], OGONTZ, RM112, , 02/06/23 Performed By: #### A LB, BMP, CBC #### [address] Monocytes (Bld) [#/Vol] 0.5 10*3/uL Normal 0.0-0.8 [facility] Comment on above: Order Comment: Diagn osis: E11.9, I10, E46, D64. Comment: [id number], OGONTZ, RM112, , 02/06/23 Performed By: #### A LB, BMP, CBC #### [place] [address] [place] Monocytes/100 WBC (Bld) 10.1 % Normal . [facility] Comment on above: Order Comment: Diagn osis: E11.9, I10, E46, D64.9 Comment: [id number], OGONTZ, RM112, , 02/06/23 Performed By: #### A LB, BMP, CBC #### [place] [id number] [place] Neutrophils (Bld) [#/Vol] 2.7 10*3/uL Normal 1.8-7.7 [facility] Comment on above: Order Comment: Diagn osis: E11.9, I10, E46, D64.9 Comment: [id number], OGONTZ, RM112, HM, 02/06/23 Performed By: #### A LB, BMP, CBC #### [facility] [address] [place] [id number] [place] Neutrophils/100 WBC (Bld) 58.1 % Normal . [facility] Comment on above: Order Comment: Diagn osis: E11.9, I10, E46, D64.9 Comment: [id number], OGONTZ, RM112, HM, 02/06/23 Performed By: #### A LB, BMP, CBC #### [facility] [address] NRBC% 0.0 /100{WBC} Normal 0-0.5 [facility] Comment on above: Order Comment: Diagn osis: E11.9, I10, E46, D64.9 Comment: [id number], OGONTZ, RM112, HM, 02/06/23 Performed By: #### A LB, BMP, CBC #### [address] Platelet mean volume (Bld) [Entitic vol] 7.6 fL Normal 6.6-10.1 [facility] Comment on above: Order Comment: Diagn osis: E11.9, I10, E46, D64. Comment: [id number], OGONTZ, RM112, HM, 02/06/23 Performed By: #### A LB, BMP, CBC #### [address] Platelets (Bld) [#/Vol] 281 10*3/uL Normal 150-450 [facility] Comment on above: Order Comment: Diagn osis: E11.9, I10, E46, D64. Comment: [id number], OGONTZ, RM112, HM, 02/06/23 Performed By: #### A LB, BMP, CBC #### [address] RBC (Bld) [#/Vol] 3.21 10*6/uL Low 3.90-5.60 [facility] Comment on above: Order Comment: Diagn osis: E11.9, I10, E46, D64. Comment: [id number], OGONTZ, RM112, HM, 02/06/23 Performed By: #### A LB, BMP, CBC #### [facility] [address] [place] [id number] [facility] WBC (Bld) [#/Vol] 4.7 10*3/uL Normal 4.1-10.5 [facility] Comment on above: Order Comment: Diagn osis: E11.9, I10, E46, D64.9 Comment: [id number], DECLAN, RM112, , 02/06/23 Performed By: #### A LB, BMP, CBC #### [facility] [address] [place] [address] Creatinine [Mass/volume] in Serum or PlasmaOrdered By: Adriane Espitia on 02-10-2023 Creatinine [Mass/Vol] 0.65 mg/dL 0.70-1.30 [facility] Eosinophils Auto (Bld) [#/Vo l]Ordered By: Adriane Espitia on 02-10-2023 Eosinophils (Bld) [#/Vol] 0.1 10*3/uL 0.0-0.45 [facility] Eosinophils/100 WBC Auto (Bl d)Ordered By: Adriane Espitia on 02-10-2023 Eosinophils/100 WBC (Bld) 3.1 % . [facility] Erythrocyte distribution wid th Auto (RBC) [Ratio]Ordered By: Adriane Espitia on 02-10-2023 Erythrocyte distribution width (RBC) [Ratio] 14.4 % 12.0-14.8 [facility] Glucose [Mass/volume] in Ser um or PlasmaOrdered By: Adriane Espitia on 02-10-2023 Glucose [Mass/Vol] 102 mg/dL 70-100 [facility] Comment on above: ADA recommended refe rence rangeRandom Glucose Reference Range is dependent on time and content of last meal. Glucose of more than 200 mg/dL in a nonstressed, ambulatory subject supports the diagnosis of Diabetes Mellitus. Hematocrit Auto (Bld) [Volum e fraction]Ordered By: Adriane Espitia on 02-10-2023 Hematocrit (Bld) [Volume fraction] 30.9 % 38.8-50.0 [facility] Hemoglobin [Mass/volume] in BloodOrdered By: Adriane Espitia on 02-10-2023 Hemoglobin (Bld) [Mass/Vol] 10.3 g/dL 13.0-17.0 [facility] Leukocytes [#/volume] correc missael for nucleated erythrocytes in Blood by Automated counOrdered By: Adriane Esptiia on 02-10-2023 WBC corrected for nucl RBC Auto (Bld) [#/Vol] 4.7 10*3/uL 4.1-10.5 [facility] Lymphocytes Auto (Bld) [#/Vo l]Ordered By: Adriane Espitia on 02-10-2023 Lymphocytes (Bld) [#/Vol] 1.3 10*3/uL 1.00-4.8 [facility] Lymphocytes/100 WBC Auto (Bl d)Ordered By: Adriane Espitia on 02-10-2023 Lymphocytes/100 WBC (Bld) 28.3 % . [facility] MCH Auto (RBC) [Entitic mass ]Ordered By: Adriane Espitia on 02-10-2023 MCH (RBC) [Entitic mass] 32.0 pg 27.5-35.2 [facility] MCHC Auto (RBC) [Mass/Vol]Or dered By: Adriane Espitia on 02-10-2023 MCHC (RBC) [Mass/Vol] 33.3 g/dL 32.5-35.6 [facility] MCV Auto (RBC) [Entitic vol] Ordered By: Adriane Espitia on 02-10-2023 MCV (RBC) [Entitic vol] 96.3 fL 83.5-101 [facility] Monocytes Auto (Bld) [#/Vol] Ordered By: Adriane Espitia on 02-10-2023 Monocytes (Bld) [#/Vol] 0.5 10*3/uL 0.0-0.8 [facility] Monocytes/100 WBC Auto (Bld) Ordered By: Adriane Espitia on 02-10-2023 Monocytes/100 WBC (Bld) 10.1 % . [facility] Neutrophils Auto (Bld) [#/Vo l]Ordered By: Adriane Espitia on 02-10-2023 Neutrophils (Bld) [#/Vol] 2.7 10*3/uL 1.8-7.7 [facility] Neutrophils/100 WBC Auto (Bl d)Ordered By: Adriane Espitia on 02-10-2023 Neutrophils/100 WBC (Bld) 58.1 % . [facility] No Panel InformationOrdered By: Adriane Espitia on 02-10-2023 Estimated GFR (CKD-EPI) > 60.0 mL/Min [facility] Creatinine Clearance (Chem N/A [facility] Nucleated erythrocytes [Pres ence] in Blood by Automated countOrdered By: Adriane Espitia on 02-10-2023 Nucleated RBC Auto Ql (Bld) 0.0 /100{WBC} 0-0.5 [facility] Platelet mean volume Auto (B ld) [Entitic vol]Ordered By: Adriane Espitia on 02-10-2023 Platelet mean volume (Bld) [Entitic vol] 7.6 fL 6.6-10.1 [facility] Platelets Auto (Bld) [#/Vol] Ordered By: Adriane Espitia on 02-10-2023 Platelets (Bld) [#/Vol] 281 10*3/uL 150-450 [facility] Potassium [Moles/volume] in Serum or PlasmaOrdered By: Adriane Espitia on 02-10-2023 Potassium [Moles/Vol] 4.7 mmol/L 3.5-5.1 [facility] RBC Auto (Bld) [#/Vol]Ordere d By: Adriane Espitia on 02-10-2023 RBC (Bld) [#/Vol] 3.21 10*6/uL 3.90-5.60 [facility] Relevant diagnostic tests/la boratory data Narrativeon 02-10-2023 Albumin [Mass/Vol] 3.4 g/dL Low 3.5-5.7 [facility] Work Phone: Anion gap [Moles/Vol] 11.5 mmol/L 6.0-15.0 [facility] Work Phone: Basophils (Bld) [#/Vol] 0 10*3/uL 0.0-0.2 [facility] Work Phone: Basophils/100 WBC (Bld) 0.4 % . [facility] Work Phone: Calcium [Mass/Vol] 8.8 mg/dL 8.6-10.3 [facility] Work Phone: Chloride [Moles/Vol] 103 mmol/L 98-107 [facility] Work Phone: CO2 [Moles/Vol] 25.2 mmol/L 21.0-31.0 [facility] Work Phone: Creatinine [Mass/Vol] 0.65 mg/dL Low 0.70-1.30 [facility] Work Phone: Eosinophils (Bld) [#/Vol] 0.1 10*3/uL 0.0-0.45 [facility] Work Phone: Eosinophils/100 WBC (Bld) 3.1 % . [facility] Work Phone: Erythrocyte distribution width (RBC) [Entitic vol] 14.4 % 12.0-14.8 [facility] Work Phone: GFR/1.73 sq M.predicted MDRD (S/P/Bld) [Vol rate/Area] mL/min/{1.73_m2} [facility] Work Phone: Glucose [Mass/Vol] 102 mg/dL High 70-100 [facility] Work Phone: Hematocrit (Bld) [Volume fraction] 30.9 % Low 38.8-50.0 [facility] Work Phone: Hemoglobin (Bld) [Mass/Vol] 10.3 g/dL Low 13.0-17.0 [facility] Work Phone: Lymphocytes (Bld) [#/Vol] 1.3 10*3/uL 1.00-4.8 [facility] Work Phone: Lymphocytes/100 WBC (Bld) 28.3 % . [facility] Work Phone: MCH (RBC) [Entitic mass] 96.3 fL 83.5-101 [facility] Work Phone: MCH (RBC) [Entitic mass] 32 pg 27.5-35.2 [facility] Work Phone: MCHC (RBC) [Mass/Vol] 33.3 g/dL 32.5-35.6 [facility] Work Phone: Monocytes (Bld) [#/Vol] 0.5 10*3/uL 0.0-0.8 [facility] Work Phone: Monocytes/100 WBC (Bld) 10.1 % . [facility] Work Phone: Neutrophils (Bld) [#/Vol] 2.7 10*3/uL 1.8-7.7 [facility] Work Phone: Neutrophils/100 WBC (Bld) 58.1 % . [facility] Work Phone: Nucleated RBC (Bld) [#/Vol] 0 /100{WBC} 0-0.5 [facility] Work Phone: Platelet mean volume (Bld) [Entitic vol] 7.6 fL 6.6-10.1 [facility] Work Phone: Platelets (Bld) [#/Vol] 281 10*3/uL 150-450 [facility] Work Phone: Potassium [Moles/Vol] 4.7 mmol/L 3.5-5.1 [facility] Work Phone: RBC (Bld) [#/Vol] 3.21 10*6/uL Low 3.90-5.60 [facility] Work Phone: Sodium [Moles/Vol] 135 mmol/L Low 136-145 [facility] Work Phone: Urea nitrogen [Mass/Vol] 19 mg/dL 7-25 [facility] Work Phone: WBC (Bld) [#/Vol] 4.7 10*3/uL 4.1-10.5 [facility] Work Phone: WBC casts LM.LPF (Urine sed) [#/Area] 4.7 10*3/uL 4.1-10.5 [facility] Work Phone: Serum or plasma anion gap de terminationOrdered By: Adriane Espitia on 02-10-2023 Anion gap [Moles/Vol] 11.5 mmol/L 6.0-15.0 [facility] Sodium [Moles/volume] in Ser um or PlasmaOrdered By: Adriane Espitia on 02-10-2023 Sodium [Moles/Vol] 135 mmol/L 136-145 [facility] Urea nitrogen [Mass/volume] in Serum or PlasmaOrdered By: Adriane Espitia on 02-10-2023 Urea nitrogen [Mass/Vol] 19 mg/dL 7-25 [facility] WBC Auto (Bld) [#/Vol]Ordere d By: Adriane Espitia on 02-10-2023 WBC (Bld) [#/Vol] 4.7 10*3/uL 4.1-10.5 [facility] Relevant diagnostic tests/la boratory data Narrativeon 01-28-2023 Albumin [Mass/Vol] 2.9 g/dL Low 3.5-5.7 [facility] Work Phone: Anion gap [Moles/Vol] 7.1 mmol/L 6.0-15.0 [facility] Work Phone: Basophils (Bld) [#/Vol] 0 10*3/uL 0.0-0.2 [facility] Work Phone: Basophils/100 WBC (Bld) 0.5 % . [facility] Work Phone: C-Peptide 1.4 ng/mL 1.1-4.4 [facility] Work Phone: Calcium [Mass/Vol] 7.8 mg/dL Low 8.6-10.3 [facility] Work Phone: Chloride [Moles/Vol] 109 mmol/L High 98-107 [facility] Work Phone: Cholesterol [Mass/Vol] 72 mg/dL Low 140-200 [facility] Work Phone: Cholesterol in HDL [Mass/Vol] 22 mg/dL Low 23-92 [facility] Work Phone: Cholesterol.total/Cho lesterol in HDL [Mass ratio] 3.3 {ratio} <5.0 [facility] Work Phone: CK [Catalytic activity/Vol] 59 U/L 30-223 [facility] Work Phone: CO2 [Moles/Vol] 25.2 mmol/L 21.0-31.0 [facility] Work Phone: Cobalamin (Vitamin B12) [Mass/Vol] 498 pg/mL 180-914 [facility] Work Phone: Creatinine [Mass/Vol] 0.66 mg/dL Low 0.70-1.30 [facility] Work Phone: Eosinophils (Bld) [#/Vol] 0.1 10*3/uL 0.0-0.45 [facility] Work Phone: Eosinophils/100 WBC (Bld) 3.7 % . [facility] Work Phone: Erythrocyte distribution width (RBC) [Entitic vol] 14.7 % 12.0-14.8 [facility] Work Phone: GFR/1.73 sq M.predicted MDRD (S/P/Bld) [Vol rate/Area] mL/min/{1.73_m2} [facility] Work Phone: Glucose [Mass/Vol] 151 mg/dL [facility] Work Phone: Glucose [Mass/Vol] 111 mg/dL High 70-100 [facility] Work Phone: HbA1c (Bld) [Mass fraction] 6.9 % High 4.3-5.6 [facility] Work Phone: Hematocrit (Bld) [Volume fraction] 27.4 % Low 38.8-50.0 [facility] Work Phone: Hemoglobin (Bld) [Mass/Vol] 9.1 g/dL Low 13.0-17.0 [facility] Work Phone: LDL Cholesterol,Calculate d 40 mg/dL 0-100 [facility] Work Phone: Lymphocytes (Bld) [#/Vol] 1.1 10*3/uL 1.00-4.8 [facility] Work Phone: Lymphocytes/100 WBC (Bld) 27.2 % . [facility] Work Phone: MCH (RBC) [Entitic mass] 95.3 fL 83.5-101 [facility] Work Phone: MCH (RBC) [Entitic mass] 31.7 pg 27.5-35.2 [facility] Work Phone: MCHC (RBC) [Mass/Vol] 33.3 g/dL 32.5-35.6 [facility] Work Phone: Monocytes (Bld) [#/Vol] 0.4 10*3/uL 0.0-0.8 [facility] Work Phone: Monocytes/100 WBC (Bld) 10.1 % . [facility] Work Phone: Neutrophils (Bld) [#/Vol] 2.3 10*3/uL 1.8-7.7 [facility] Work Phone: Neutrophils/100 WBC (Bld) 58.5 % . [facility] Work Phone: Nucleated RBC (Bld) [#/Vol] 0.2 /100{WBC} 0-0.5 [facility] Work Phone: Platelet mean volume (Bld) [Entitic vol] 7 fL 6.6-10.1 [facility] Work Phone: Platelets (Bld) [#/Vol] 302 10*3/uL 150-450 [facility] Work Phone: Potassium [Moles/Vol] 4.3 mmol/L 3.5-5.1 [facility] Work Phone: RBC (Bld) [#/Vol] 2.88 10*6/uL Low 3.90-5.60 [facility] Work Phone: Reticulocyte Number 0.035 10*6/uL 0.024-0 .08 4 [facility] Work Phone: Reticulocyte Percent 1.2 % 0.5-1.5 [facility] Work Phone: Sodium [Moles/Vol] 137 mmol/L 136-145 [facility] Work Phone: Triglyceride w/Reflex 52 mg/dL 0-149 [facility] Work Phone: Urea nitrogen [Mass/Vol] 16 mg/dL 7-25 [facility] Work Phone: Vitamin D 25 Hydroxy Total < 7.0 Low 30-100 [facility] Work Phone: VLDL CHOLESTEROL 10 mg/dL [facility] Work Phone: WBC (Bld) [#/Vol] 4 10*3/uL Low 4.1-10.5 [facility] Work Phone: WBC casts LM.LPF (Urine sed) [#/Area] 4 10*3/uL Low 4.1-10.5 [facility] Work Phone: A1C with Estimated Average G corkymarisa 01-27-2023 Glucose [Mass/Vol] 151 mg/dL Normal [facility] Comment on above: Order Comment: Diagn osis: D64.9, I48.0, E11.9, K90.81 Comment: [id number], DECLAN, RM112, , 01/23/23 Result Comment: PERF ORMED BY: [facility] [address] [place] [address] PATHOLOGIST UTILITY WORKER FORGE ESTIVEN GENTILE M.D. Performed By: #### C K, B12, RETIC, CBC, BMP, LIPID, [id number], A1C WTH eA, ALB #### [facility] [address] [place] [address] [place] #### CPEP #### [facility] , HbA1c (Bld) [Mass fraction] 6.9 % High 4.3-5.6 [facility] Comment on above: Order Comment: Diagn osis: D64.9, I48.0, E11.9, K90.81 Comment: [id number], DECLAN [facility], , 01/23/23 Result Comment: Incr eased risk for diabetes: 5.7 - 6.4 diabetes: >6.4 glycemic control for adults with diabetes: <7.0 Performed By: #### C K, B12, RETIC, CBC, BMP, LIPID, [id number], A1C WTH eA, ALB #### [facility] [address] [place] [address] #### CPEP #### [facility] , Absolute reticulocyte countO rdered By: Adriane Espitia on 01-27-2023 Reticulocytes (Bld) [#/Vol] 0.035 10*6/uL 0.024-0.08 4 [facility] Albumin Levelon 01-27-2023 Albumin [Mass/Vol] 2.9 g/dL Low 3.5-5.7 [facility] Comment on above: Order Comment: Diagn osis: D64.9, I48.0, E11.9, K90.81 Comment: [id number], ALYSSIA MANRIQUEZ, , 01/23/23 Performed By: #### C K, B12, RETIC, CBC, BMP, LIPID, [id number], A1C WTH eA, ALB #### [facility] [address] [place] [address] [place] #### CPEP #### [facility] , Albumin [Mass/volume] in Ser um or Plasma by Bromocresol green (BCG) dye binding methoOrdered By: Adriane Espitia on 01-27-2023 Albumin BCG dye [Mass/Vol] 2.9 g/dL 3.5-5.7 [facility] Basic Metabolic Panelon 08-0 Anion gap [Moles/Vol] 7.1 mmol/L Normal 6.0-15.0 [facility] Comment on above: Order Comment: Diagn osis: D64.9, I48.0, E11.9, K90.81 Comment: [id number], OGMIKHAILZ, RM112, , 01/23/23 Performed By: #### C K, B12, RETIC, CBC, BMP, LIPID, [id number], A1C WTH eA, ALB #### [facility] [address] [place] [address] #### CPEP #### [facility] , Calcium [Mass/Vol] 7.8 mg/dL Low 8.6-10.3 [facility] Comment on above: Order Comment: Diagn osis: D64.9, I48.0, E11., K90.81 Comment: [id number], OGMIKHAILZ, RM112, , 01/23/23 Performed By: #### C K, B12, RETIC, CBC, BMP, LIPID, [id number], A1C WTH eA, ALB #### [facility] [address] [place] [address] #### CPEP #### [facility] , Chloride [Moles/Vol] 109 mmol/L High 98-107 [facility] Comment on above: Order Comment: Diagn osis: D64.9, I48.0, E11.9, K90.81 Comment: [id number], OGONTZ, RM112, , 01/23/23 Performed By: #### C K, B12, RETIC, CBC, BMP, LIPID, [id number], A1C WTH eA, ALB #### [facility] [address] [place] [address] [place] #### CPEP #### [facility] , CO2 [Moles/Vol] 25.2 mmol/L Normal 21.0-31.0 [facility] Comment on above: Order Comment: Diagn osis: D64.9, I48.0, E11.9, K Comment: [id number], BLADIMIRZ, RM112, HM, 01/23/23 Performed By: #### C K, B12, RETIC, CBC, BMP, LIPID, [id number], A1C WTH eA, ALB #### [place] [address] [place] #### CPEP #### [facility] , Creatinine [Mass/Vol] 0.66 mg/dL Low 0.70-1.30 [facility] Comment on above: Order Comment: Diagn osis: D64.9, I48.0, E11.9, K Comment: [id number], DECLAN, RM112, HM, 01/23/23 Performed By: #### C K, B12, RETIC, CBC, BMP, LIPID, [id number], A1C WTH eA, ALB #### [place] [address] [place] #### CPEP #### [facility] , GFR/1.73 sq M.predicted MDRD (S/P/Bld) [Vol rate/Area] mL/min/{1.73_m2} [facility] Comment on above: Order Comment: Diagn osis: D64.9, I48.0, E11.9, Comment: [id number], DECLAN, RM112, , 01/23/23 Performed By: #### C K, B12, RETIC, CBC, BMP, LIPID, [id number], A1C WTH eA, ALB #### [place] [address] [place] #### CPEP #### [facility] , Glucose [Mass/Vol] 111 mg/dL High 70-100 [facility] Comment on above: Order Comment: Diagn osis: D64.9, I48.0, E11.9, K81 Comment: [id number], DECLAN, RM112, HM, 01/23/23 Result Comment: [place] [facility] Glucose Reference Range is dependent on time and content of last meal. Glucose of more than 200 mg/dL in a nonstressed, ambulatory subject supports the diagnosis of Diabetes Mellitus. ADA recommended reference range Performed By: #### C K, B12, RETIC, CBC, BMP, LIPID, [id number], A1C WTH eA, ALB #### [place] [address] [place] #### CPEP #### [facility] , Potassium [Moles/Vol] 4.3 mmol/L Normal 3.5-5.1 [facility] Comment on above: Order Comment: Diagn osis: D64.9, I48.0, E11.9, K90.81 Comment: [id number], [facility] [place], , 01/23/23 Performed By: #### C K, B12, RETIC, CBC, BMP, LIPID, [id number], A1C WTH eA, ALB #### [place] [address] [place] #### CPEP #### [facility] , Sodium [Moles/Vol] 137 mmol/L Normal 136-145 [facility] Comment on above: Order Comment: Diagn osis: D64.9, I48.0, E11.9, K90.81 Comment: [id number], DECLAN [facility] [place], , 01/23/23 Performed By: #### C K, B12, RETIC, CBC, BMP, LIPID, [id number], A1C WTH eA, ALB #### [place] [address] [place] #### CPEP #### [facility] , Urea nitrogen [Mass/Vol] 16 mg/dL Normal 7-25 [facility] Comment on above: Order Comment: Diagn osis: D64.9, I48.0, E11.9, K90.81 Comment: [id number], DECLAN, RM112, , 01/23/23 Performed By: #### C K, B12, RETIC, CBC, BMP, LIPID, [id number], A1C WTH eA, ALB #### [facility] [address] #### CPEP #### [facility] , Basophils Auto (Bld) [#/Vol] Ordered By: Adriane Espitia on 01-27-2023 Basophils (Bld) [#/Vol] 0.0 10*3/uL 0.0-0.2 [facility] Basophils/100 WBC Auto (Bld) Ordered By: Adriane Espitia on 01-27-2023 Basophils/100 WBC (Bld) 0.5 % . [facility] C-Peptideon 01-27-2023 C-Peptide 1.4 ng/mL Normal 1.1-4.4 [facility] Comment on above: Order Comment: Diagn osis: E11.9, I10, E46, D64.9 Comment: [id number], DECLAN, RM112, , 02/06/23 Result Comment: C-Pe ptide reference interval is for fasting patients. Performed at: - [facility] [id number] Marketing Database Coordinator: Silverio Mario PhD, Phone: [phone] PERFORMED BY: [place] [address] PATHOLOGIST UTILITY WORKER [employer] ESTIVEN GENTILE M.D. Performed By: #### A LB, BMP, CBC #### [address] Calcium [Mass/volume] in Ser um or PlasmaOrdered By: Adriane Espitia on 01-27-2023 Calcium [Mass/Vol] 7.8 mg/dL 8.6-10.3 [facility] Carbon dioxide, total [Moles /volume] in Serum or PlasmaOrdered By: Adriane Espitia on 01-27-2023 CO2 [Moles/Vol] 25.2 mmol/L 21.0-31.0 [facility] Chloride [Moles/volume] in S brandi or PlasmaOrdered By: Adriane Espitia on 01-27-2023 Chloride [Moles/Vol] 109 mmol/L 98-107 [facility] Cholesterol [Mass/volume] in Serum or PlasmaOrdered By: Adriane Espitia on 01-27-2023 Cholesterol [Mass/Vol] 72 mg/dL 140-200 [facility] Comment on above: Chol less than 200 m g/dl low riskChol 201-239 mg/dl borderline riskChol 240 mg/dl and greater high risk Cholesterol in LDL Calc [Mas s/Vol]Ordered By: Adriane Espitia on 01-27-2023 Cholesterol in LDL [Mass/Vol] 40 mg/dL 0-100 [facility] Comment on above: LDL ATP III CLASSIFI CATIONLDL less than 100 mg/dL OptimalLDL 100-129 mg/dL Near or above optimalLDL 130-159 mg/dL Borderline highLDL 160-189 mg/dL HighLDL greater than 189 mg/dL Very high Cholesterol in VLDL Calc [Ma ss/Vol]Ordered By: Adriane Espitia on 01-27-2023 Cholesterol in VLDL [Mass/Vol] 10 mg/dL [facility] Complete Blood Count Auto Di ffon 01-27-2023 Basophils (Bld) [#/Vol] 0.0 10*3/uL Normal 0.0-0.2 [facility] Comment on above: Order Comment: Diagn osis: D64.9, I48.0, E11.9, K90.81 Comment: [id number], DECLAN, ALYSSIA, , 01/23/23 Performed By: #### C K, B12, RETIC, CBC, BMP, LIPID, [id number], A1C WTH eA, ALB #### [place] [address] [place] #### CPEP #### [facility] , Basophils/100 WBC (Bld) 0.5 % Normal . [facility] Comment on above: Order Comment: Diagn osis: D64.9, I48.0, E11.9, K90.81 Comment: [id number], DECLAN, RM112, , 01/23/23 Performed By: #### C K, B12, RETIC, CBC, BMP, LIPID, [id number], A1C WTH eA, ALB #### [place] [address] [place] #### CPEP #### [facility] , Eosinophils (Bld) [#/Vol] 0.1 10*3/uL Normal 0.0-0.45 [facility] Comment on above: Order Comment: Diagn osis: D64.9, I48.0, E11.9, Comment: [id number], RICKYNICOLAS, [id number], , 01/23/23 Performed By: #### C K, B12, RETIC, CBC, BMP, LIPID, [id number], A1C WTH eA, ALB #### [facility] [address] [place] [address] #### CPEP #### [facility] , Eosinophils/100 WBC (Bld) 3.7 % Normal . [facility] Comment on above: Order Comment: Diagn osis: D64.9, I48.0, E11., Comment: [id number], DECLAN, [id number], , 01/23/23 Performed By: #### C K, B12, RETIC, CBC, BMP, LIPID, [id number], A1C WTH eA, ALB #### [address] #### CPEP #### [facility] , Erythrocyte distribution width (RBC) [Ratio] 14.7 % Normal 12.0-14.8 [facility] [facility] Comment on above: Order Comment: Diagn osis: D64.9, I48.0, E11., Comment: [id number], DECLAN, [id number], , 01/23/23 Performed By: #### C K, B12, RETIC, CBC, BMP, LIPID, [id number], A1C WTH eA, ALB #### [address] #### CPEP #### [facility] , Hematocrit (Bld) [Volume fraction] 27.4 % Low 38.8-50.0 [facility] Comment on above: Order Comment: Diagn osis: D64.9, I48.0, E11.9, Comment: [id number], OGMIKHAILZ, RM112, , 01/23/23 Performed By: #### C K, B12, RETIC, CBC, BMP, LIPID, [id number], A1C WTH eA, ALB #### [address] #### CPEP #### [facility] , Hemoglobin (Bld) [Mass/Vol] 9.1 g/dL Low 13.0-17.0 [facility] Comment on above: Order Comment: Diagn osis: D64.9, I48.0, E11.9, K90.81 Comment: [id number], DECLAN, RM112, , 01/23/23 Performed By: #### C K, B12, RETIC, CBC, BMP, LIPID, [id number], A1C WTH eA, ALB #### [address] #### CPEP #### [facility] , Lymphocytes (Bld) [#/Vol] 1.1 10*3/uL Normal 1.00-4.8 [facility] Comment on above: Order Comment: Diagn osis: D64.9, I48.0, E11.9, K90.81 Comment: [id number], DECLAN, RMRobinson, , 01/23/23 Performed By: #### C K, B12, RETIC, CBC, BMP, LIPID, [id number], A1C WTH eA, ALB #### [address] #### CPEP #### [facility] , Lymphocytes/100 WBC (Bld) 27.2 % Normal . [facility] Comment on above: Order Comment: Diagn osis: D64.9, I48.0, E11.9, K90.81 Comment: [id number], DECLAN, RM112, , 01/23/23 Performed By: #### C K, B12, RETIC, CBC, BMP, LIPID, [id number], A1C WTH eA, ALB #### [place] [address] [place] #### CPEP #### [facility] , MCH (RBC) [Entitic mass] 31.7 pg Normal 27.5-35.2 [facility] Comment on above: Order Comment: Diagn osis: D64.9, I48.0, E11.9, K Comment: [id number], OGMIKHAILZ, RM112, , 01/23/23 Performed By: #### C K, B12, RETIC, CBC, BMP, LIPID, [id number], A1C WTH eA, ALB #### [facility] [address] [place] [address] #### CPEP #### [facility] , MCV (RBC) [Entitic vol] 95.3 fL Normal 83.5-101 [facility] Comment on above: Order Comment: Diagn osis: D64.9, I48.0, E11., Comment: [id number], OGMIKHAILZ, [facility] [place], , 01/23/23 Performed By: #### C K, B12, RETIC, CBC, BMP, LIPID, [id number], A1C WTH eA, ALB #### [facility] [address] [place] [address] #### CPEP #### [facility] , Mean Corpuscular HGB Conc 33.3 g/dL Normal 32.5-35.6 [facility] Comment on above: Order Comment: Diagn osis: D64.9, I48.0, E11, K Comment: [id number], OGONTZ, [facility] [place], , 01/23/23 Performed By: #### C K, B12, RETIC, CBC, BMP, LIPID, [id number], A1C WTH eA, ALB #### [facility] [address] [place] [address] [place] #### CPEP #### [facility] , Monocytes (Bld) [#/Vol] 0.4 10*3/uL Normal 0.0-0.8 [facility] Comment on above: Order Comment: Diagn osis: D64.9, I48.0, E11.9, K Comment: [id number], OGONTZ, RM112, HM, 01/23/23 Performed By: #### C K, B12, RETIC, CBC, BMP, LIPID, [id number], A1C WTH eA, ALB #### [address] #### CPEP #### [facility] , Monocytes/100 WBC (Bld) 10.1 % Normal . [facility] Comment on above: Order Comment: Diagn osis: D64.9, I48.0, E11.9, K Comment: [id number], OGONTZ, RM112, HM, 01/23/23 Performed By: #### C K, B12, RETIC, CBC, BMP, LIPID, [id number], A1C WTH eA, ALB #### [address] #### CPEP #### [facility] , Neutrophils (Bld) [#/Vol] 2.3 10*3/uL Normal 1.8-7.7 [facility] Comment on above: Order Comment: Diagn osis: D64.9, I48.0, E11., Comment: [id number], OGONTZ, RM112, HM, 01/23/23 Performed By: #### C K, B12, RETIC, CBC, BMP, LIPID, [id number], A1C WTH eA, ALB #### [address] #### CPEP #### [facility] , Neutrophils/100 WBC (Bld) 58.5 % Normal . [facility] Comment on above: Order Comment: Diagn osis: D64.9, I48.0, E11.9, Comment: [id number], OGONTZ, RM112, HM, 01/23/23 Performed By: #### C K, B12, RETIC, CBC, BMP, LIPID, [id number], A1C WTH eA, ALB #### [facility] [address] [place] [address] #### CPEP #### [facility] , NRBC% 0.2 /100{WBC} Normal 0-0.5 [facility] Comment on above: Order Comment: Diagn osis: D64.9, I48.0, E11.9, K. Comment: [id number], OGONTZ, RM112, HM, 01/23/23 Performed By: #### C K, B12, RETIC, CBC, BMP, LIPID, [id number], A1C WTH eA, ALB #### [facility] [address] [place] [address] #### CPEP #### [facility] , Platelet mean volume (Bld) [Entitic vol] 7.0 fL Normal 6.6-10.1 [facility] Comment on above: Order Comment: Diagn osis: D64.9, I48.0, E11., K Comment: [id number], OGONTZ, RM112, HM, 01/23/23 Performed By: #### C K, B12, RETIC, CBC, BMP, LIPID, [id number], A1C WTH eA, ALB #### [facility] [address] [place] [address] #### CPEP #### [facility] , Platelets (Bld) [#/Vol] 302 10*3/uL Normal 150-450 [facility] Comment on above: Order Comment: Diagn osis: D64.9, I48.0, E11., Comment: [id number], OGONTZ, RM112, HM, 01/23/23 Performed By: #### C K, B12, RETIC, CBC, BMP, LIPID, [id number], A1C WTH eA, ALB #### [facility] [address] [place] [address] #### CPEP #### [facility] , RBC (Bld) [#/Vol] 2.88 10*6/uL Low 3.90-5.60 [facility] Comment on above: Order Comment: Diagn osis: D64.9, I48.0, E11.9, K90.81 Comment: [id number], RICKYNICOLAS, RM112, , 01/23/23 Performed By: #### C K, B12, RETIC, CBC, BMP, LIPID, [id number], A1C WTH eA, ALB #### [address] #### CPEP #### [facility] , WBC (Bld) [#/Vol] 4.0 10*3/uL Low 4.1-10.5 [facility] Comment on above: Order Comment: Diagn osis: D64.9, I48.0, E11.9, K90.81 Comment: [id number], RICKYNICOLAS, RM112, , 01/23/23 Performed By: #### C K, B12, RETIC, CBC, BMP, LIPID, [id number], A1C WTH eA, ALB #### [address] #### CPEP #### [facility] , Creatine Kinaseon 01-27-2023 CK [Catalytic activity/Vol] 59 U/L Normal 30-223 [facility] Comment on above: Order Comment: Diagn osis: D64.9, I48.0, E11.9, K90.81 Comment: [id number], RICKYNICOLAS, [facility], , 01/23/23 Result Comment: PERF ORMED BY: [place] [address] PATHOLOGIST [employer] WORK[employer] ESTIVEN GENTILE M.D. Performed By: #### C K, B12, RETIC, CBC, BMP, LIPID, [id number], A1C WTH eA, ALB #### [address] #### CPEP #### [facility] , Creatine kinase [Enzymatic a ctivity/volume] in Serum or PlasmaOrdered By: Adriane Espitia on 01-27-2023 CK [Catalytic activity/Vol] 59 U/L 30-223 [facility] Creatinine [Mass/volume] in Serum or PlasmaOrdered By: Adriane Espitia on 01-27-2023 Creatinine [Mass/Vol] 0.66 mg/dL 0.70-1.30 [facility] Eosinophils Auto (Bld) [#/Vo l]Ordered By: Adriane Espitia on 01-27-2023 Eosinophils (Bld) [#/Vol] 0.1 10*3/uL 0.0-0.45 [facility] Eosinophils/100 WBC Auto (Bl d)Ordered By: Adriane Espitia on 01-27-2023 Eosinophils/100 WBC (Bld) 3.7 % . [facility] Erythrocyte distribution wid th Auto (RBC) [Ratio]Ordered By: Adriane Espitia on 01-27-2023 Erythrocyte distribution width (RBC) [Ratio] 14.7 % 12.0-14.8 [facility] Glucose [Mass/volume] in Ser um or PlasmaOrdered By: Adriane Espitia on 01-27-2023 Glucose [Mass/Vol] 111 mg/dL 70-100 [facility] Comment on above: ADA recommended [...] from glycated hemoglobin (Bld) [Mass/Vol] 151 mg/dL [facility] Hematocrit Auto (Bld) [Volum e fraction]Ordered By: Adriane Espitia on 01-27-2023 Hematocrit (Bld) [Volume fraction] 27.4 % 38.8-50.0 [facility] Hemoglobin A1c percentageOrd ered By: Adriane Espitia on 01-27-2023 HbA1c (Bld) [Mass fraction] 6.9 % 4.3-5.6 [facility] Comment on above: Increased risk for d iabetes: 5.7 - 6.4diabetes: >6.4glycemic control for adults with diabetes: <7.0 Hemoglobin [Mass/volume] in BloodOrdered By: Adriane Espitia on 01-27-2023 Hemoglobin (Bld) [Mass/Vol] 9.1 g/dL 13.0-17.0 [facility] Leukocytes [#/volume] correc missael for nucleated erythrocytes in Blood by Automated counOrdered By: Adriane Espitia on 01-27-2023 WBC corrected for nucl RBC Auto (Bld) [#/Vol] 4.0 10*3/uL 4.1-10.5 [facility] Lipid Panelon 01-27-2023 Cholesterol [Mass/Vol] 72 mg/dL Low 140-200 [facility] Comment on above: Order Comment: Diagn osis: D64.9, I48.0, E11.9, K90.81 Comment: DECLAN Lo RM112, , 01/23/23 Result Comment: Chol less than 200 mg/dl low risk Chol 201-239 mg/dl borderline risk Chol 240 mg/dl and greater high risk Performed By: #### C K, B12, RETIC, CBC, BMP, LIPID, [id number], A1C WTH eA, ALB #### [facility] [address] [place] [address] [place] #### CPEP #### [facility] , Cholesterol in HDL [Mass/Vol] 22 mg/dL Low 23-92 [facility] Comment on above: Order Comment: Diagn osis: D64.9, I48.0, E11.9, K90.81 Comment: [id number] RM112, , 01/23/23 Result Comment: HDL CHOL ATP-III CLASSIFICATION Cardiovascular Risk HDL > or equal to 60 mg/dL LOW HDL < 40 mg/dL HIGH Performed By: #### C K, B12, RETIC, CBC, BMP, LIPID, [id number], A1C WTH eA, ALB #### [facility] [address] [place] [address] [place] #### CPEP #### [facility] , Cholesterol.total/Cho lesterol in HDL [Mass ratio] 3.3 {ratio} Normal <5.0 [facility] Comment on above: Order Comment: Diagn osis: D64.9, I48.0, E11.9, K90.81 Comment: [id number], DECLAN [place], , 01/23/23 Performed By: #### C K, B12, RETIC, CBC, BMP, LIPID, [id number], A1C WTH eA, ALB #### [address] #### CPEP #### [facility] , LDL Cholesterol,Calculate d 40 mg/dL Normal 0-100 [facility] Comment on above: Order Comment: Diagn osis: D64.9, I48.0, E11.9, K90.81 Comment: [id number], DECLAN [place], , 01/23/23 Result Comment: LDL ATP III CLASSIFICATION LDL less than 100 mg/dL Optimal LDL 100-129 mg/dL Near or above optimal LDL 130-159 mg/dL Borderline high LDL 160-189 mg/dL High LDL greater than 189 mg/dL Very high Performed By: #### C K, B12, RETIC, CBC, BMP, LIPID, [id number], A1C WTH eA, ALB #### [address] #### CPEP #### [facility] , Triglyceride w/Reflex 52 mg/dL Normal 0-149 [facility] Comment on above: Order Comment: Diagn osis: D64.9, I48.0, E11.9, K90.81 Comment: [id number], DECLAN [facility], , 01/23/23 Result Comment: TRIG ATP III CLASSIFICATION TRIG less than 150 mg/dL Normal TRIG 150-199 mg/dL Borderline high TRIG 200-500 mg/dL High TRIG greater than 500 mg/dL Very high Standard traceable to the Center for Disease Conrtrol and Prevention (CDC) test method. Performed By: #### C K, B12, RETIC, CBC, BMP, LIPID, [id number], A1C WTH eA, ALB #### [place] [address] [place] #### CPEP #### [facility] , VLDL CHOLESTEROL 10 mg/dL Normal [facility] Comment on above: Order Comment: Diagn osis: D64.9, I48.0, E11.9, K90.81 Comment: [id number], OGMIKHAILZ, RM112, HM, 01/23/23 Performed By: #### C K, B12, RETIC, CBC, BMP, LIPID, [id number], A1C WTH eA, ALB #### [facility] [address] #### CPEP #### [facility] , Lymphocytes Auto (Bld) [#/Vo l]Ordered By: Adriane Espitia on 01-27-2023 Lymphocytes (Bld) [#/Vol] 1.1 10*3/uL 1.00-4.8 [facility] Lymphocytes/100 WBC Auto (Bl d)Ordered By: Adriane Espitia on 01-27-2023 Lymphocytes/100 WBC (Bld) 27.2 % . [facility] MCH Auto (RBC) [Entitic mass ]Ordered By: Adriane Espitia on 01-27-2023 MCH (RBC) [Entitic mass] 31.7 pg 27.5-35.2 [facility] MCHC Auto (RBC) [Mass/Vol]Or dered By: Adriane Espitia on 01-27-2023 MCHC (RBC) [Mass/Vol] 33.3 g/dL 32.5-35.6 [facility] MCV Auto (RBC) [Entitic vol] Ordered By: Adriane Espitia on 01-27-2023 MCV (RBC) [Entitic vol] 95.3 fL 83.5-101 [facility] Monocytes Auto (Bld) [#/Vol] Ordered By: Adriane Espitia on 01-27-2023 Monocytes (Bld) [#/Vol] 0.4 10*3/uL 0.0-0.8 [facility] Monocytes/100 WBC Auto (Bld) Ordered By: Adriane Espitia on 01-27-2023 Monocytes/100 WBC (Bld) 10.1 % . [facility] Neutrophils Auto (Bld) [#/Vo l]Ordered By: Adriane Espitia on 01-27-2023 Neutrophils (Bld) [#/Vol] 2.3 10*3/uL 1.8-7.7 [facility] Neutrophils/100 WBC Auto (Bl d)Ordered By: Adriane Espitia on 01-27-2023 Neutrophils/100 WBC (Bld) 58.5 % . [facility] No Panel InformationOrdered By: Adriane Espitia on 01-27-2023 C-Peptide 1.4 ng/mL 1.1-4.4 [facility] Comment on above: C-Peptide reference interval is for fasting patients.Performed at: [facility] [id number] Director: Silverio Mario PhD, Phone: [phone] Estimated GFR (CKD-EPI) > 60.0 mL/Min [facility] Creatinine Clearance (Chem N/A [facility] Nucleated erythrocytes [Pres ence] in Blood by Automated countOrdered By: Adriane Espitia on 01-27-2023 Nucleated RBC Auto Ql (Bld) 0.2 /100{WBC} 0-0.5 [facility] Platelet mean volume Auto (B ld) [Entitic vol]Ordered By: Adriane Espitia on 01-27-2023 Platelet mean volume (Bld) [Entitic vol] 7.0 fL 6.6-10.1 [facility] Platelets Auto (Bld) [#/Vol] Ordered By: Adriane Espitia on 01-27-2023 Platelets (Bld) [#/Vol] 302 10*3/uL 150-450 [facility] Potassium [Moles/volume] in Serum or PlasmaOrdered By: Adriane Espitia on 01-27-2023 Potassium [Moles/Vol] 4.3 mmol/L 3.5-5.1 [facility] RBC Auto (Bld) [#/Vol]Ordere d By: Adriane Espitia on 01-27-2023 RBC (Bld) [#/Vol] 2.88 10*6/uL 3.90-5.60 [facility] Reticulocyte Counton 023 Reticulocyte Number 0.035 10*6/uL Normal 0.024-0 .08 4 [facility] Comment on above: Order Comment: Diagn osis: D64.9, I48.0, E11.9, K90.81 Comment: [id number], OGMIKHAILZ, RM112, , 01/23/23 Result Comment: PERF ORMED BY: [place] [address] PATHOLOGIST [employer] WORKER [employer]IV[employer] GENTILE M.D. Performed By: #### C K, B12, RETIC, CBC, BMP, LIPID, [id number], A1C WT eA, ALB #### [facility] [address] [place] [address] #### CPEP #### [facility] , Reticulocyte Percent 1.2 % Normal 0.5-1.5 [facility] Comment on above: Order Comment: Diagn osis: D64.9, I48.0, E11.9, K90.81 Comment: [id number], OGONTZ, RM112, HM, 01/23/23 Performed By: #### C K, B12, RETIC, CBC, BMP, LIPID, [id number], A1C WTH eA, ALB #### [facility] [address] [place] [address] [place] #### CPEP #### [facility] , Reticulocytes/100 RBC Auto ( Bld)Ordered By: Adriane Espitia on 01-27-2023 Reticulocytes/100 RBC (Bld) 1.2 % 0.5-1.5 [facility] Serum or plasma anion gap de terminationOrdered By: Adriane Espitia on 01-27-2023 Anion gap [Moles/Vol] 7.1 mmol/L 6.0-15.0 [facility] Serum or plasma high density lipoprotein (HDL) cholesterol measurementOrdered By: Adriane Espitia on 01-27-2023 Cholesterol in HDL [Mass/Vol] 22 mg/dL - [facility] Comment on above: HDL CHOL ATP-III CLA SSIFICATION Cardiovascular RiskHDL > or equal to 60 mg/dL LOWHDL < 40 mg/dL HIGH Serum or plasma total choles terol/high density lipoprotein (HDL) cholesterol mass ratOrdered By: Adriane Espitia on 01-27-2023 Cholesterol.total/Cho lesterol in HDL [Mass ratio] 3.3 {ratio} <5.0 [facility] Sodium [Moles/volume] in Ser um or PlasmaOrdered By: Adriane Espitia on 01-27-2023 Sodium [Moles/Vol] 137 mmol/L 136-145 [facility] Triglyceride [Mass/volume] i n Serum or PlasmaOrdered By: Adriane Espitia on 01-27-2023 Triglyceride [Mass/Vol] 52 mg/dL 0-149 [facility] Comment on above: TRIG ATP III CLASSIF ICATIONTRIG less than 150 mg/dL NormalTRIG 150-199 mg/dL Borderline highTRIG 200-500 mg/dL High TRIG greater than 500 mg/dL Very highStandard traceable to the Center for Disease Conrtrol and Prevention (CDC) test method. Urea nitrogen [Mass/volume] in Serum or PlasmaOrdered By: Adriane Espitia on 01-27-2023 Urea nitrogen [Mass/Vol] 16 mg/dL 7-25 [facility] Vitamin B12on 01-27-2023 Cobalamin (Vitamin B12) [Mass/Vol] 498 pg/mL Normal 180-914 [facility] Comment on above: Order Comment: Diagn osis: E11.9, I10, E46, D64.9 Comment: [id number] RM112, HM, 02/06/23 Performed By: #### A LB, BMP, CBC #### [address] Vitamin B12 ser/plasOrdered By: Adriane Espitia on 01-27-2023 Cobalamin (Vitamin B12) [Mass/Vol] 498 pg/mL 180-914 [facility] Vitamin D 25 Hydroxy Totalon 01-27-2023 Vitamin D 25 Hydroxy Total < 7.0 Low 30-100 [facility] Comment on above: Order Comment: Diagn osis: E11.9, I10, E46, D64.9 Comment: [id number] RM112 , 02/06/23 Result Comment: TAYLER MIN D STATUS 25(OH)VITAMIN D RANGE (ng/mL) Deficient <20 Insufficient 20 to <30 Sufficient 30 to 100 Reference: Janny GEE,Carmen LACEY, Brant CAMPUZANO, et al. Evaluation,treatment, and prevention of vitamin D deficiency; an Endocrine Society clinical practice guideline. JCEM. 2010; 96(7):1911-30. PERFORMED BY: [facility] [address] [place] [id number] PATHOLOGIST UTILITY WORKER [employer] ESTIVEN GENTILE M.D. Performed By: #### A LB, BMP, CBC #### [facility] [address] Vitamin D+Metabolites [Mass/ volume] in Serum or PlasmaOrdered By: Adriane Espitia on 01-27-2023 Vitamin D+Metabolites [Mass/Vol] < 7.0 ng/mL 30-100 [facility] Comment on above: VITAMIN D STATUS 25( [place])VITAMIN D RANGE (ng/mL) Deficient <20 Insufficient 20 to <30Sufficient 30 to 100Reference: Janny MF,Carmen LACEY, Brant CAMPUZANO, et al. Evaluation,treatment, and prevention of vitamin D deficiency; an Endocrine Society clinical practice guideline. JCEM. 2010; 96(7):1911-30. WBC Auto (Bld) [#/Vol]Ordere d By: Adriane Espitia on 01-27-2023 WBC (Bld) [#/Vol] 4.0 10*3/uL 4.1-10.5 [facility] CNPNon 01-21-2023 CNPN Normal [facility] CNPNon 01-13-2023 CNPN Normal [facility] CNNURSEon 12-26-2022 CNNURSE Normal [facility] CBC W Auto Differential pane l (Bld)on 11-28-2022 Basophils (Bld) [#/Vol] 10*3/uL Normal <0.11 [facility] Comment on above: Order Comment: Speci men Type: BLOOD SPECIMENOrdering Facility: [facility] Address: [facility] [place] [address] Performed By: #### 5 7021-8 ####[facility] LABCLIA [id number] [place] [address] Basophils/100 WBC (Bld) 0.2 % Normal [facility] Comment on above: Order Comment: Speci men Type: BLOOD SPECIMENOrdering Facility: [facility] Address: [address] [place] [address] Performed By: #### 5 7021-8 ####[facility] LABCLIA [id number] [place] [address] Differential cell count method Nom (Bld) Auto Normal [facility] Comment on above: Order Comment: Speci men Type: BLOOD SPECIMENOrdering Facility: [facility] Address: [address] [place] [address] Performed By: #### 5 7021-8 ####[facility] LABCLIA [id number] [place] [address] Eosinophils (Bld) [#/Vol] 0.07 10*3/uL Normal <0.46 [facility] Comment on above: Order Comment: Speci men Type: BLOOD SPECIMENOrdering Facility: [facility] Address: [address] [place] [address] Performed By: #### 5 7021-8 ####[facility] LABCLIA [id number] [place] [address] Eosinophils/100 WBC (Bld) 1.7 % Normal [facility] Comment on above: Order Comment: Speci men Type: BLOOD SPECIMENOrdering Facility: [facility] Address: [address] [place] [address] Performed By: #### 5 7021-8 ####[facility] LABCLIA [id number] [place] [address] Erythrocyte distribution width (RBC) [Ratio] 13.6 % Normal 11.5-15.0 [facility] Comment on above: Order Comment: Speci men Type: BLOOD SPECIMENOrdering Facility: [facility] Address: [address] [place] [address] Performed By: #### 5 7021-8 ####[facility] LABCLIA [id number] [place] [address] Hematocrit (Bld) [Volume fraction] 31.8 % Low 39.0-51.0 [facility] Comment on above: Order Comment: Speci men Type: BLOOD SPECIMENOrdering Facility: [facility] Address: [address] [place] [address] Performed By: #### 5 7021-8 ####[facility] LABCLIA [id number] [place] [address] Hemoglobin (Bld) [Mass/Vol] 10.2 g/dL Low 13.0-17.0 [facility] Comment on above: Order Comment: Speci men Type: BLOOD SPECIMENOrdering Facility: [facility] Address: [address] [place] [address] Performed By: #### 5 7021-8 ####[facility] LABIA [id number] [place] [address] Immature granulocytes (Bld) [#/Vol] 10*3/uL Normal <0.10 [facility] Comment on above: Order Comment: Speci men Type: BLOOD SPECIMENOrdering Facility: [facility] Address: [address] [place] [address] Performed By: #### 5 7021-8 ####[facility] LABIA [id number] [place] [address] Immature granulocytes/100 WBC (Bld) 0.5 % Normal [facility] Comment on above: Order Comment: Speci men Type: BLOOD SPECIMENOrdering Facility: [facility] Address: [address] [place] [address] Performed By: #### 5 7021-8 ####[facility] LABIA [id number] [place] [address] Lymphocytes (Bld) [#/Vol] 1.17 10*3/uL Normal 1.00-4.00 [facility] Comment on above: Order Comment: Speci men Type: BLOOD SPECIMENOrdering Facility: [facility] Address: [facility] [place] [address] Performed By: #### 5 7021-8 ####[facility] LABCLIA [id number] [place] [address] Lymphocytes/100 WBC (Bld) 28.3 % Normal [facility] Comment on above: Order Comment: Speci men Type: BLOOD SPECIMENOrdering Facility: [facility] Address: [address] [place] [address] Performed By: #### 5 7021-8 ####[facility] LABCLIA [id number] [place] [address] MCH (RBC) [Entitic mass] 30.0 pg Normal 26.0-34.0 [facility] Comment on above: Order Comment: Speci men Type: BLOOD SPECIMENOrdering Facility: [facility] Address: [address] [place] [address] Performed By: #### 5 7021-8 ####[facility] LABCLIA [id number] [place] [address] MCHC (RBC) [Mass/Vol] 32.1 g/dL Normal 30.5-36.0 [facility] Comment on above: Order Comment: Speci men Type: BLOOD SPECIMENOrdering Facility: [facility] Address: [address] [place] [address] Performed By: #### 5 7021-8 ####[facility] LABCLIA [id number] [place] [address] MCV (RBC) [Entitic vol] 93.5 fL Normal 80.0-100.0 [facility] Comment on above: Order Comment: Speci men Type: BLOOD SPECIMENOrdering Facility: [facility] Address: [address] [place] [address] Performed By: #### 5 7021-8 ####[facility] LABCLIA [id number] [place] [address] Monocytes (Bld) [#/Vol] 0.38 10*3/uL Normal <0.87 [facility] Comment on above: Order Comment: Speci men Type: BLOOD SPECIMENOrdering Facility: [facility] Address: [address] [address] Performed By: #### 5 7021-8 ####[facility] LABCLIA [id number] [place] [address] Monocytes/100 WBC (Bld) 9.2 % Normal [facility] Comment on above: Order Comment: Speci men Type: BLOOD SPECIMENOrdering Facility: [facility] Address: [address] [address] Performed By: #### 5 7021-8 ####[facility] LABCLIA [id number] [place] [address] Neutrophils (Bld) [#/Vol] 2.49 10*3/uL Normal 1.45-7.50 [facility] Comment on above: Order Comment: Speci men Type: BLOOD SPECIMENOrdering Facility: [facility] Address: [address] [address] Performed By: #### 5 7021-8 ####[facility] LABCLIA [id number] [place] [address] Neutrophils/100 WBC (Bld) 60.1 % Normal [facility] Comment on above: Order Comment: Speci men Type: BLOOD SPECIMENOrdering Facility: [facility] Address: [address] Performed By: #### 5 7021-8 ####[facility] LABCLIA [id number] [place] [address] Nucleated RBC (Bld) [#/Vol] 10*3/uL Normal <0.01 [facility] Comment on above: Order Comment: Speci men Type: BLOOD SPECIMENOrdering Facility: [facility] Address: [address] [place], [place] [address] Performed By: #### 5 7021-8 ####[facility] LABCLIA [id number] [place] [address] Nucleated RBC/100 WBC (Bld) [Ratio] 0.0 /100 WBC Normal [facility] Comment on above: Order Comment: Speci men Type: BLOOD SPECIMENOrdering Facility: [facility] Address: [address] [place] [address] Performed By: #### 5 7021-8 ####[facility] LABCLIA [id number] [place] [address] Platelet mean volume (Bld) [Entitic vol] 9.3 fL Normal 9.0-12.7 [facility] Comment on above: Order Comment: Speci men Type: BLOOD SPECIMENOrdering Facility: [facility] Address: [address] [place] [address] Performed By: #### 5 7021-8 ####[facility] LABIA [id number] [place] [address] Platelets (Bld) [#/Vol] 316 10*3/uL Normal 150-400 [facility] Comment on above: Order Comment: Speci men Type: BLOOD SPECIMENOrdering Facility: [facility] Address: [address] [place] [address] Performed By: #### 5 7021-8 ####[facility] LABCLIA [id number] [place] [address] RBC (Bld) [#/Vol] 3.40 10*6/uL Low 4.20-6.00 [facility] Comment on above: Order Comment: Speci men Type: BLOOD SPECIMENOrdering Facility: [facility] Address: [address] [place] [address] Performed By: #### 5 7021-8 ####[facility] LABCLIA [id number] [place] [address] WBC (Bld) [#/Vol] 4.14 10*3/uL Normal 3.70-11.00 [facility] Comment on above: Order Comment: Speci men Type: BLOOD SPECIMENOrdering Facility: [facility] Address: [address] [place] [address] Performed By: #### 5 7021-8 ####[facility] LABCLIA [id number] [place] [address] CNNURSEon 11-28-2022 CNNURSE Normal [facility] CNOVSPon 11-28-2022 CNOVSP Normal [facility] Comprehensive metabolic 2000 panelon 11-28-2022 Albumin [Mass/Vol] 3.6 g/dL Low 3.9-4.9 [facility] Comment on above: Order Comment: Speci men Type: BLOOD SPECIMENOrdering Facility: [facility] Address: [address] [place] [address] Performed By: #### 2 4323-8 ####[facility] LABCLIA [id number] [place] [address] ALP [Catalytic activity/Vol] 143 U/L High 38-113 [facility] Comment on above: Order Comment: Speci men Type: BLOOD SPECIMENOrdering Facility: [facility] Address: [address] [place] [address] Performed By: #### 2 4323-8 ####[facility] LABCLIA [id number] [place] [address] ALT [Catalytic activity/Vol] 25 U/L Normal 10-54 [facility] Comment on above: Order Comment: Speci men Type: BLOOD SPECIMENOrdering Facility: [facility] Address: [address] [place] [address] Performed By: #### 2 4323-8 ####[facility] LABCLIA [id number] [place] [address] Anion gap [Moles/Vol] 10 mmol/L Normal 9-18 [facility] Comment on above: Order Comment: Speci men Type: BLOOD SPECIMENOrdering Facility: [facility] Address: [address] [address] Performed By: #### 2 4323-8 ####[facility] LABCLIA [id number] [place] [address] AST [Catalytic activity/Vol] 15 U/L Normal 14-40 [facility] Comment on above: Order Comment: Speci men Type: BLOOD SPECIMENOrdering Facility: [facility] Address: [address] [place] [address] Performed By: #### 2 4323-8 ####[facility] LABCLIA [id number] [place] [address] Bilirubin [Mass/Vol] 0.2 mg/dL Normal 0.2-1.3 [facility] Comment on above: Order Comment: Speci men Type: BLOOD SPECIMENOrdering Facility: [facility] Address: [address] [place] [address] Performed By: #### 2 4323-8 ####[facility] LABCLIA [id number] [place] [address] Calcium [Mass/Vol] 9.4 mg/dL Normal 8.5-10.2 [facility] Comment on above: Order Comment: Speci men Type: BLOOD SPECIMENOrdering Facility: [facility] Address: [address] [place] [address] Performed By: #### 2 4323-8 ####[facility] LABCLIA [id number] [place] [address] Chloride [Moles/Vol] 103 mmol/L Normal 97-105 [facility] Comment on above: Order Comment: Speci men Type: BLOOD SPECIMENOrdering Facility: [facility] Address: [address] [place] [address] Performed By: #### 2 4323-8 ####[facility] LABCLIA [id number] [place] [address] CO2 [Moles/Vol] 19 mmol/L Low 22-30 [facility] Comment on above: Order Comment: Speci men Type: BLOOD SPECIMENOrdering Facility: [facility] Address: [address] [address] Performed By: #### 2 4323-8 ####[facility] LABCLIA [id number] [place] [address] Creatinine [Mass/Vol] 0.90 mg/dL Normal 0.73-1.22 [facility] Comment on above: Order Comment: Speci men Type: BLOOD SPECIMENOrdering Facility: [facility] Address: [address] [place] [address] Performed By: #### 2 4323-8 ####[facility] LABCLIA [id number] [place] [address] ESTIMATED GLOMERULAR FILTRATION RATE 95 mL/min/1.73m??? Normal >=60 [facility] Comment on above: Order Comment: Speci men Type: BLOOD SPECIMENOrdering Facility: [facility] Address: [address] [place] [address] Result Comment: Megan mated Glomerular Filtration Rate [...] actual GFR. Performed By: #### 2 4323-8 ####[facility] LABCLIA [id number] [place] [address] Glucose [Mass/Vol] 422 mg/dL High 74-99 [facility] Comment on above: Order Comment: Speci men Type: BLOOD SPECIMENOrdering Facility: [facility] Address: [address] [place] [address] Result Comment: The [place] [employer] (ADA) provides guidance for cutoff [...] Standards of Medical Care in Diabetes 2016, [place] [employer]. Diabetes Care. 2016.39(Suppl 1). Performed By: #### 2 4323-8 ####[facility] LABCLIA [id number] [place] [address] Potassium [Moles/Vol] 4.7 mmol/L Normal 3.7-5.1 [facility] Comment on above: Order Comment: Speci men Type: BLOOD SPECIMENOrdering Facility: [facility] Address: [address] [place] [address] Performed By: #### 2 4323-8 ####[facility] LABCLIA [id number] [place] [address] Protein [Mass/Vol] 7.0 g/dL Normal 6.3-8.0 [facility] Comment on above: Order Comment: Speci men Type: BLOOD SPECIMENOrdering Facility: [facility] Address: [address] [place] [address] Performed By: #### 2 4323-8 ####[facility] LABCLIA [id number] [place] [address] Sodium [Moles/Vol] 132 mmol/L Low 136-144 [facility] Comment on above: Order Comment: Speci men Type: BLOOD SPECIMENOrdering Facility: [facility] Address: [address] [address] Performed By: #### 2 4323-8 ####[facility] LABCLIA [id number] [place] [address] Urea nitrogen [Mass/Vol] 30 mg/dL High 9-24 [facility] Comment on above: Order Comment: Speci men Type: BLOOD SPECIMENOrdering Facility: [facility] Address: [address] [place] [address] Performed By: #### 2 4323-8 ####[facility] LABCLIA [id number] [place] [address] Ferritin SerPl-mCncon 2022 Ferritin [Mass/Vol] 336.0 ng/mL Normal 30.3-565.7 [facility] Comment on above: Order Comment: Speci men Type: BLOOD SPECIMENOrdering Facility: [facility] Address: [address] [place] [address] Performed By: #### 5 0190-8, 9, 2275-09, 2284-01 ####[facility] LABCLIA [id number] [place] [address] [place] Folate SerPl-ncon 11-29-19 Folate [Mass/Vol] 11.2 ng/mL Normal >4.7 [facility] Comment on above: Order Comment: Speci men Type: BLOOD SPECIMENOrdering Facility: [facility] Address: [address] [place] [address] Performed By: #### 5 0190-8, 9, 2275-09, 2284-01 ####[facility] LABCLIA [id number] [place] [address] [place] Iron and Iron binding capaci ty panelon 11-28-2022 Iron [Mass/Vol] 37 ug/dL Low 41-186 [facility] Comment on above: Order Comment: Speci men Type: BLOOD SPECIMENOrdering Facility: [facility] Address: [address] [place] [address] Performed By: #### 5 0190-8, 9, 2275-09, 2284-01 ####[facility] LABCLIA [id number] [place] [address] [place] Iron binding capacity [Mass/Vol] 220 ug/dL Low 232-386 [facility] Comment on above: Order Comment: Speci men Type: BLOOD SPECIMENOrdering Facility: [facility] Address: [address] [place] [address] Performed By: #### 5 0190-8, 9, 2275-09, 2284-01 ####[facility] LABIA [id number] [place] [address] [place] Iron/TIBC [Molar ratio] 16.8 % Normal 15.0-57.0 [facility] Comment on above: Order Comment: Speci men Type: BLOOD SPECIMENOrdering Facility: [facility] Address: [address] [place] [address] Performed By: #### 5 0190-8, 9, 2275-09, 2284-01 ####[facility] [id number] [place] [address] [place] Vit B12 SerPl-ncon 023 Cobalamin (Vitamin B12) [Mass/Vol] 868 pg/mL Normal 232-1245 [facility] Comment on above: Order Comment: Speci men Type: BLOOD SPECIMENOrdering Facility: [facility] Address: [address] [place], [place] [address] Performed By: #### 5 0190-8, 2132-02, 2275-09, 2284-01 ####[facility] LABIA [id number] [place] [id number] [place] CNNURSEon 10-31-2022 CNNURSE Normal [facility] CBC W Auto Differential pane l (Bld)on 10-03-2022 Basophils (Bld) [#/Vol] 10*3/uL Normal <0.11 [facility] Comment on above: Order Comment: Speci men Type: BLOOD SPECIMENOrdering Facility: [facility] Address: [address] [address] Performed By: #### 5 7021-8 ####[facility] LABCLIA [id number] [place] [address] Basophils/100 WBC (Bld) 0.2 % Normal [facility] Comment on above: Order Comment: Speci men Type: BLOOD SPECIMENOrdering Facility: [facility] Address: [address] [place] [address] Performed By: #### 5 7021-8 ####[facility] LABCLIA [id number] [place] [address] Differential cell count method Nom (Bld) Auto Normal [facility] Comment on above: Order Comment: Speci men Type: BLOOD SPECIMENOrdering Facility: [facility] Address: [address] [place] [address] Performed By: #### 5 7021-8 ####[facility] LABCLIA [id number] [place] [address] Eosinophils (Bld) [#/Vol] 0.11 10*3/uL Normal <0.46 [facility] Comment on above: Order Comment: Speci men Type: BLOOD SPECIMENOrdering Facility: [facility] Address: [address] [place] [address] Performed By: #### 5 7021-8 ####[facility] LABCLIA [id number] [place] [address] Eosinophils/100 WBC (Bld) 2.2 % Normal [facility] Comment on above: Order Comment: Speci men Type: BLOOD SPECIMENOrdering Facility: [facility] Address: [address] [place] [address] Performed By: #### 5 7021-8 ####[facility] LABCLIA [id number] [place] [address] Erythrocyte distribution width (RBC) [Ratio] 12.7 % Normal 11.5-15.0 [facility] Comment on above: Order Comment: Speci men Type: BLOOD SPECIMENOrdering Facility: [facility] Address: [address] [address] Performed By: #### 5 7021-8 ####[facility] LABCLIA [id number] [place] [address] Hematocrit (Bld) [Volume fraction] 32.1 % Low 39.0-51.0 [facility] Comment on above: Order Comment: Speci men Type: BLOOD SPECIMENOrdering Facility: [facility] Address: [address] [address] Performed By: #### 5 7021-8 ####[facility] LABCLIA [id number] [place] [address] Hemoglobin (Bld) [Mass/Vol] 10.2 g/dL Low 13.0-17.0 [facility] Comment on above: Order Comment: Speci men Type: BLOOD SPECIMENOrdering Facility: [facility] Address: [address] [address] Performed By: #### 5 7021-8 ####[facility] LABCLIA [id number] [place] [address] Immature granulocytes (Bld) [#/Vol] 10*3/uL Normal <0.10 [facility] Comment on above: Order Comment: Speci men Type: BLOOD SPECIMENOrdering Facility: [facility] Address: [address] [address] Performed By: #### 5 7021-8 ####[facility] LABCLIA [id number] [place] [address] Immature granulocytes/100 WBC (Bld) 0.2 % Normal [facility] Comment on above: Order Comment: Speci men Type: BLOOD SPECIMENOrdering Facility: [facility] Address: [address] [place] [address] Performed By: #### 5 7021-8 ####[facility] LABCLIA [id number] [place] [address] Lymphocytes (Bld) [#/Vol] 1.37 10*3/uL Normal 1.00-4.00 [facility] Comment on above: Order Comment: Speci men Type: BLOOD SPECIMENOrdering Facility: [facility] Address: [address] [place] [address] Performed By: #### 5 7021-8 ####[facility] LABCLIA [id number] [place] [address] Lymphocytes/100 WBC (Bld) 26.9 % Normal [facility] Comment on above: Order Comment: Speci men Type: BLOOD SPECIMENOrdering Facility: [facility] Address: [address] [place] [address] Performed By: #### 5 7021-8 ####[facility] LABIA [id number] [place] [address] MCH (RBC) [Entitic mass] 29.7 pg Normal 26.0-34.0 [facility] Comment on above: Order Comment: Speci men Type: BLOOD SPECIMENOrdering Facility: [facility] Address: [address] [place] [address] Performed By: #### 5 7021-8 ####[facility] LABCLIA [id number] [place] [address] MCHC (RBC) [Mass/Vol] 31.8 g/dL Normal 30.5-36.0 [facility] Comment on above: Order Comment: Speci men Type: BLOOD SPECIMENOrdering Facility: [facility] Address: [address] [place] [address] Performed By: #### 5 7021-8 ####[facility] LABIA [id number] [place] [address] MCV (RBC) [Entitic vol] 93.3 fL Normal 80.0-100.0 [facility] Comment on above: Order Comment: Speci men Type: BLOOD SPECIMENOrdering Facility: [facility] Address: [address] [address] Performed By: #### 5 7021-8 ####[facility] LABCLIA [id number] [place] [address] Monocytes (Bld) [#/Vol] 0.39 10*3/uL Normal <0.87 [facility] Comment on above: Order Comment: Speci men Type: BLOOD SPECIMENOrdering Facility: [facility] Address: [address] [place] [address] Performed By: #### 5 7021-8 ####[facility] LABCLIA [id number] [place] [address] Monocytes/100 WBC (Bld) 7.6 % Normal [facility] Comment on above: Order Comment: Speci men Type: BLOOD SPECIMENOrdering Facility: [facility] Address: [address] [place] [address] Performed By: #### 5 7021-8 ####[facility] LABCLIA [id number] [place] [address] Neutrophils (Bld) [#/Vol] 3.21 10*3/uL Normal 1.45-7.50 [facility] Comment on above: Order Comment: Speci men Type: BLOOD SPECIMENOrdering Facility: [facility] Address: [address] [place] [address] Performed By: #### 5 7021-8 ####[facility] LABCLIA [id number] [place] [address] Neutrophils/100 WBC (Bld) 62.9 % Normal [facility] Comment on above: Order Comment: Speci men Type: BLOOD SPECIMENOrdering Facility: [facility] Address: [address] [place] [address] Performed By: #### 5 7021-8 ####[facility] LABCLIA [id number] [place] [address] Nucleated RBC (Bld) [#/Vol] 10*3/uL Normal <0.01 [facility] Comment on above: Order Comment: Speci men Type: BLOOD SPECIMENOrdering Facility: [facility] Address: [address] [place] [address] Performed By: #### 5 7021-8 ####[facility] LABCLIA [id number] [place] [address] Nucleated RBC/100 WBC (Bld) [Ratio] 0.0 /100 WBC Normal [facility] Comment on above: Order Comment: Speci men Type: BLOOD SPECIMENOrdering Facility: [facility] Address: [address] [place] [address] Performed By: #### 5 7021-8 ####[facility] LABIA [id number] [place] [address] Platelet mean volume (Bld) [Entitic vol] 9.1 fL Normal 9.0-12.7 [facility] Comment on above: Order Comment: Speci men Type: BLOOD SPECIMENOrdering Facility: [facility] Address: [address] [place] [address] Performed By: #### 5 7021-8 ####[facility] LABCLIA [id number] [place] [address] Platelets (Bld) [#/Vol] 267 10*3/uL Normal 150-400 [facility] Comment on above: Order Comment: Speci men Type: BLOOD SPECIMENOrdering Facility: [facility] Address: [address] [place] [address] Performed By: #### 5 7021-8 ####[facility] LABIA [id number] [place] [address] RBC (Bld) [#/Vol] 3.44 10*6/uL Low 4.20-6.00 [facility] Comment on above: Order Comment: Speci men Type: BLOOD SPECIMENOrdering Facility: [facility] Address: [address] [address] Performed By: #### 5 7021-8 ####[facility] LABIA [id number] [place] [address] WBC (Bld) [#/Vol] 5.10 10*3/uL Normal 3.70-11.00 [facility] Comment on above: Order Comment: Speci men Type: BLOOD SPECIMENOrdering Facility: [facility] Address: [address] [address] Performed By: #### 5 7021-8 ####[facility] LABIA [id number] [place] [address] CNNURSEon 10-03-2022 CNNURSE Normal [facility] CNOVSPon 10-03-2022 CNOVSP Normal [facility] Comprehensive metabolic 2000 panelon 10-03-2022 Albumin [Mass/Vol] 3.7 g/dL Low 3.9-4.9 [facility] Comment on above: Order Comment: Speci men Type: BLOOD SPECIMENOrdering Facility: [facility] Address: [address] [address] Performed By: #### 2 4323-8 ####[facility] LABIA [id number] [place] [address] ALP [Catalytic activity/Vol] 152 U/L High 38-113 [facility] Comment on above: Order Comment: Speci men Type: BLOOD SPECIMENOrdering Facility: [facility] Address: [address] [address] Performed By: #### 2 4323-8 ####[facility] LABIA [id number] [place] [address] ALT [Catalytic activity/Vol] 26 U/L Normal 10-54 [facility] Comment on above: Order Comment: Speci men Type: BLOOD SPECIMENOrdering Facility: [facility] Address: [address] [address] Performed By: #### 2 4323-8 ####[facility] LABCLIA [id number] [place] [address] Anion gap [Moles/Vol] 10 mmol/L Normal 9-18 [facility] Comment on above: Order Comment: Speci men Type: BLOOD SPECIMENOrdering Facility: [facility] Address: [address] [place] [address] Performed By: #### 2 4323-8 ####[facility] LABCLIA [id number] [place] [address] AST [Catalytic activity/Vol] 16 U/L Normal 14-40 [facility] Comment on above: Order Comment: Speci men Type: BLOOD SPECIMENOrdering Facility: [facility] Address: [address] [place] [address] Performed By: #### 2 4323-8 ####[facility] LABCLIA [id number] [place] [address] Bilirubin [Mass/Vol] 0.2 mg/dL Normal 0.2-1.3 [facility] Comment on above: Order Comment: Speci men Type: BLOOD SPECIMENOrdering Facility: [facility] Address: [address] [place] [address] Performed By: #### 2 4323-8 ####[facility] LABCLIA [id number] [place] [address] Calcium [Mass/Vol] 9.1 mg/dL Normal 8.5-10.2 [facility] Comment on above: Order Comment: Speci men Type: BLOOD SPECIMENOrdering Facility: [facility] Address: [address] [place] [address] Performed By: #### 2 4323-8 ####[facility] LABCLIA [id number] [place] [address] Chloride [Moles/Vol] 102 mmol/L Normal 97-105 [facility] Comment on above: Order Comment: Speci men Type: BLOOD SPECIMENOrdering Facility: [facility] Address: [address] [address] Performed By: #### 2 4323-8 ####[facility] LABCLIA [id number] [place] [address] CO2 [Moles/Vol] 19 mmol/L Low 22-30 [facility] Comment on above: Order Comment: Speci men Type: BLOOD SPECIMENOrdering Facility: [facility] Address: [address] [place] [address] Performed By: #### 2 4323-8 ####[facility] LABCLIA [id number] [place] [address] Creatinine [Mass/Vol] 0.76 mg/dL Normal 0.73-1.22 [facility] Comment on above: Order Comment: Speci men Type: BLOOD SPECIMENOrdering Facility: [facility] Address: [address] [place] [address] Performed By: #### 2 4323-8 ####[facility] LABCLIA [id number] [place] [address] ESTIMATED GLOMERULAR FILTRATION RATE 100 mL/min/1.73m??? Normal >=60 [facility] Comment on above: Order Comment: Speci men Type: BLOOD SPECIMENOrdering Facility: [facility] Address: [address] [place] [address] Result Comment: Megan mated Glomerular Filtration Rate [...] actual GFR. Performed By: #### 2 4323-8 ####[facility] LABCLIA [id number] [place] [address] Glucose [Mass/Vol] 470 mg/dL High 74-99 [facility] Comment on above: Order Comment: Speci men Type: BLOOD SPECIMENOrdering Facility: [facility] Address: [address] [place] [address] Result Comment: The [place] [employer] (ADA) provides guidance for cutoff [...] Standards of Medical Care in Diabetes 2016, [place] [employer]. Diabetes Care. 2016.39(Suppl 1). Performed By: #### 2 4323-8 ####[facility] LABCLIA [id number] [place] [address] Potassium [Moles/Vol] 5.1 mmol/L Normal 3.7-5.1 [facility] Comment on above: Order Comment: Speci men Type: BLOOD SPECIMENOrdering Facility: [facility] Address: [address] [place] [address] Performed By: #### 2 4323-8 ####[facility] LABCLIA [id number] [place] [address] Protein [Mass/Vol] 7.1 g/dL Normal 6.3-8.0 [facility] Comment on above: Order Comment: Speci men Type: BLOOD SPECIMENOrdering Facility: [facility] Address: [address] [place] [address] Performed By: #### 2 4323-8 ####[facility] LABCLIA [id number] [place] [address] Sodium [Moles/Vol] 131 mmol/L Low 136-144 [facility] Comment on above: Order Comment: Speci men Type: BLOOD SPECIMENOrdering Facility: [facility] Address: [address] [address] Performed By: #### 2 4323-8 ####[facility] LABCLIA [id number] [place] [address] Urea nitrogen [Mass/Vol] 24 mg/dL Normal 9-24 [facility] Comment on above: Order Comment: Speci men Type: BLOOD SPECIMENOrdering Facility: [facility] Address: [address] [place] [address] Performed By: #### 2 4323-8 ####[facility] LABCLIA [id number] [place] [address] Ferritin SerPl-mCncon 2022 Ferritin [Mass/Vol] 308.0 ng/mL Normal 30.3-565.7 [facility] Comment on above: Order Comment: Speci men Type: BLOOD SPECIMENOrdering Facility: [facility] Address: [address] [place] [address] Performed By: #### 5 0190-8, 2-9, 6-4, 2284-8 ####[facility] LABIA [id number] [place] [address] [place] Folate SerPl-mCncon 10-04-19 23 Folate [Mass/Vol] 11.6 ng/mL Normal >4.7 [facility] Comment on above: Order Comment: Speci men Type: BLOOD SPECIMENOrdering Facility: [facility] Address: [address] [place] [address] Performed By: #### 5 0190-8, 2132-9, 6-4, 2284-8 ####[facility] LABCLIA [id number] [place] [address] [place] Iron and Iron binding capaci ty panelon 10-03-2022 Iron [Mass/Vol] 39 ug/dL Low 41-186 [facility] Comment on above: Order Comment: Speci men Type: BLOOD SPECIMENOrdering Facility: [facility] Address: [address] [place] [address] Performed By: #### 5 0190-8, 2132-02, 2275-09, 2284-01 ####[facility] LABCLIA [id number] [address] [address] [place] Iron binding capacity [Mass/Vol] 226 ug/dL Low 232-386 [facility] Comment on above: Order Comment: Speci men Type: BLOOD SPECIMENOrdering Facility: [facility] Address: [address] [place] [address] Performed By: #### 5 0190-8, 2132-02, 2275-09, 2284-01 ####[facility] LABCLIA [id number] [address] [address] [place] Iron/TIBC [Molar ratio] 17.3 % Normal 15.0-57.0 [facility] Comment on above: Order Comment: Speci men Type: BLOOD SPECIMENOrdering Facility: [facility] Address: [address] [place] [address] Performed By: #### 5 0190-8, 2132-02, 2275-09, 2284-01 ####[facility] LABCLIA [id number] [place] [id number] [facility] [place] Vit B12 [facility] -07-2 023 Cobalamin (Vitamin B12) [Mass/Vol] 1009 pg/mL Normal 232-1245 [facility] Comment on above: Order Comment: Speci men Type: BLOOD SPECIMENOrdering Facility: [facility] Address: [address] [place] [address] Performed By: #### 5 0190-8, 2132-02, 2275-09, 2284-01 ####[facility] LABCLIA [id number] [address] [address] [place] Office Visit (Cardiology)on 09-16-2022 [...] follow-up, with recent hospitalization in June at [facility] for atypical chest pain, anxiety, rate [...] Patient does have a history of prior DE and stenting 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 Follow-up stress perfusion imaging in 2018 revealed improved left ventricular function with ejection fraction of 40% and anteroseptal scar. Patient does have a history of gastric cancer with Whipple procedure with no clinical recurrence of cancer. He does have a history of paroxysmal A-fib and remains on low-dose Eliquis, ECG from June 2022 [facility] admission is noted for sinus rhythm [...] ONE TABLET BY MOUTH AT BEDTIME Creon [id number] UNIT Oral Capsule Delayed Release Particles1 tablet [...] DAILY BEFORE MEALS. Vitamin D3 1.25 MG (73740 UT) Oral CapsuleTAKE 1 CAPSULE Daily Xanax [...] Recorded: 16Sep2022 11:33AM Heart Rate78, L Radial Niyfwmym075, LUE, Sitting Ruawjcije04, LUE, Sitting Height5 ft 8 in Tgzagi468 lb BMI Xpidlvgsjl64.05 kg/m2 BSA Calculated1.78 Tobacco Useb) No PHQ-2 [...] auscultation. Cardiovascul (more content not included)... Normal [facility] CNNURSEon 09-05-2022 CNNURSE Normal [facility] CBC W Auto Differential pane l (Bld)on 08-08-2022 Basophils (Bld) [#/Vol] 10*3/uL Normal <0.11 [facility] Comment on above: Order Comment: Speci men Type: BLOOD SPECIMENOrdering Facility: [facility] Address: [address] [place] [address] Performed By: #### 5 7021-8 ####[facility] LABCLIA [id number] [place] [address] Basophils/100 WBC (Bld) 0.2 % Normal [facility] Comment on above: Order Comment: Speci men Type: BLOOD SPECIMENOrdering Facility: [facility] Address: [address] [place] [address] Performed By: #### 5 7021-8 ####[facility] LABCLIA [id number] [place] [address] Differential cell count method Nom (Bld) Auto Normal [facility] Comment on above: Order Comment: Speci men Type: BLOOD SPECIMENOrdering Facility: [facility] Address: [address] [place] [address] Performed By: #### 5 7021-8 ####[facility] LABCLIA [id number] [place] [address] Eosinophils (Bld) [#/Vol] 0.18 10*3/uL Normal <0.46 [facility] Comment on above: Order Comment: Speci men Type: BLOOD SPECIMENOrdering Facility: [facility] Address: [address] [place] [address] Performed By: #### 5 7021-8 ####[facility] LABCLIA [id number] [place] [address] Eosinophils/100 WBC (Bld) 3.8 % Normal [facility] Comment on above: Order Comment: Speci men Type: BLOOD SPECIMENOrdering Facility: [facility] Address: [address] [place] [address] Performed By: #### 5 7021-8 ####[facility] LABCLIA [id number] [place] [address] Erythrocyte distribution width (RBC) [Ratio] 12.5 % Normal 11.5-15.0 [facility] Comment on above: Order Comment: Speci men Type: BLOOD SPECIMENOrdering Facility: [facility] Address: [address] [place] [address] Performed By: #### 5 7021-8 ####[facility] LABCLIA [id number] [place] [address] Hematocrit (Bld) [Volume fraction] 32.5 % Low 39.0-51.0 [facility] Comment on above: Order Comment: Speci men Type: BLOOD SPECIMENOrdering Facility: [facility] Address: [address] [place] [address] Performed By: #### 5 7021-8 ####[facility] LABCLIA [id number] [place] [address] Hemoglobin (Bld) [Mass/Vol] 10.1 g/dL Low 13.0-17.0 [facility] Comment on above: Order Comment: Speci men Type: BLOOD SPECIMENOrdering Facility: [facility] Address: [address] [place] [address] Performed By: #### 5 7021-8 ####[facility] LABCLIA [id number] [place] [address] Immature granulocytes (Bld) [#/Vol] 10*3/uL Normal <0.10 [facility] Comment on above: Order Comment: Speci men Type: BLOOD SPECIMENOrdering Facility: [facility] Address: [address] [place] [address] Performed By: #### 5 7021-8 ####[facility] LABCLIA [id number] [place] [address] Immature granulocytes/100 WBC (Bld) 0.4 % Normal [facility] Comment on above: Order Comment: Speci men Type: BLOOD SPECIMENOrdering Facility: [facility] Address: [address] [place] [address] Performed By: #### 5 7021-8 ####[facility] LABCLIA [id number] [place] [address] Lymphocytes (Bld) [#/Vol] 1.03 10*3/uL Normal 1.00-4.00 [facility] Comment on above: Order Comment: Speci men Type: BLOOD SPECIMENOrdering Facility: [facility] Address: [address] [place] [address] Performed By: #### 5 7021-8 ####[facility] LABCLIA [id number] [place] [address] Lymphocytes/100 WBC (Bld) 22.0 % Normal [facility] Comment on above: Order Comment: Speci men Type: BLOOD SPECIMENOrdering Facility: [facility] Address: [address] [place] [address] Performed By: #### 5 7021-8 ####[facility] LABCLIA [id number] [place] [address] MCH (RBC) [Entitic mass] 31.9 pg Normal 26.0-34.0 [facility] Comment on above: Order Comment: Speci men Type: BLOOD SPECIMENOrdering Facility: [facility] Address: [address] [place] [address] Performed By: #### 5 7021-8 ####[facility] LABCLIA [id number] [place] [address] MCHC (RBC) [Mass/Vol] 31.1 g/dL Normal 30.5-36.0 [facility] Comment on above: Order Comment: Speci men Type: BLOOD SPECIMENOrdering Facility: [facility] Address: [address] [place] [address] Performed By: #### 5 7021-8 ####[facility] LABCLIA [id number] [place] [address] MCV (RBC) [Entitic vol] 102.5 fL High 80.0-100.0 [facility] Comment on above: Order Comment: Speci men Type: BLOOD SPECIMENOrdering Facility: [facility] Address: [address] [place] [address] Performed By: #### 5 7021-8 ####[facility] LABCLIA [id number] [place] [address] Monocytes (Bld) [#/Vol] 0.41 10*3/uL Normal <0.87 [facility] Comment on above: Order Comment: Speci men Type: BLOOD SPECIMENOrdering Facility: [facility] Address: [address] [place] [address] Performed By: #### 5 7021-8 ####[facility] LABCLIA [id number] [place] [address] Monocytes/100 WBC (Bld) 8.8 % Normal [facility] Comment on above: Order Comment: Speci men Type: BLOOD SPECIMENOrdering Facility: [facility] Address: [address] [place] [address] Performed By: #### 5 7021-8 ####[facility] LABCLIA [id number] [place] [address] Neutrophils (Bld) [#/Vol] 3.03 10*3/uL Normal 1.45-7.50 [facility] Comment on above: Order Comment: Speci men Type: BLOOD SPECIMENOrdering Facility: [facility] Address: [address] [place] [address] Performed By: #### 5 7021-8 ####[facility] LABCLIA [id number] [place] [address] Neutrophils/100 WBC (Bld) 64.8 % Normal [facility] Comment on above: Order Comment: Speci men Type: BLOOD SPECIMENOrdering Facility: [facility] Address: [address] [place] [address] Performed By: #### 5 7021-8 ####[facility] LABCLIA [id number] [place] [address] Nucleated RBC (Bld) [#/Vol] 10*3/uL Normal <0.01 [facility] Comment on above: Order Comment: Speci men Type: BLOOD SPECIMENOrdering Facility: [facility] Address: [address] [place] [address] Performed By: #### 5 7021-8 ####[facility] LABCLIA [id number] [place] [address] Nucleated RBC/100 WBC (Bld) [Ratio] 0.0 /100 WBC Normal [facility] Comment on above: Order Comment: Speci men Type: BLOOD SPECIMENOrdering Facility: [facility] Address: [address] [place] [address] Performed By: #### 5 7021-8 ####[facility] LABCLIA [id number] [place] [address] Platelet mean volume (Bld) [Entitic vol] 9.1 fL Normal 9.0-12.7 [facility] Comment on above: Order Comment: Speci men Type: BLOOD SPECIMENOrdering Facility: [facility] Address: [address] [place] [address] Performed By: #### 5 7021-8 ####[facility] LABCLIA [id number] [place] [address] Platelets (Bld) [#/Vol] 278 10*3/uL Normal 150-400 [facility] Comment on above: Order Comment: Speci men Type: BLOOD SPECIMENOrdering Facility: [facility] Address: [address] [place] [address] Performed By: #### 5 7021-8 ####[facility] LABIA [id number] [place] [address] RBC (Bld) [#/Vol] 3.17 10*6/uL Low 4.20-6.00 [facility] Comment on above: Order Comment: Speci men Type: BLOOD SPECIMENOrdering Facility: [facility] Address: [address] [place] [address] Performed By: #### 5 7021-8 ####[facility] LABIA [id number] [place] [address] WBC (Bld) [#/Vol] 4.68 10*3/uL Normal 3.70-11.00 [facility] Comment on above: Order Comment: Speci men Type: BLOOD SPECIMENOrdering Facility: [facility] Address: [address] [place] [address] Performed By: #### 5 7021-8 ####[facility] LABIA [id number] [place] [address] CNNURSEon 08-08-2022 CNNURSE Normal [facility] CNOVSPon 08-08-2022 CNOVSP Normal [facility] CNPNon 08-08-2022 CNPN Normal [facility] Comprehensive metabolic 2000 panelon 08-08-2022 Albumin [Mass/Vol] 3.9 g/dL Normal 3.9-4.9 [facility] Comment on above: Order Comment: Speci men Type: BLOOD SPECIMENOrdering Facility: [facility] Address: [address] [place] [address] Performed By: #### 2 4323-8 ####[facility] LABCLIA [id number] [place] [address] ALP [Catalytic activity/Vol] 146 U/L High 38-113 [facility] Comment on above: Order Comment: Speci men Type: BLOOD SPECIMENOrdering Facility: [facility] Address: [address] [place] [address] Performed By: #### 2 4323-8 ####[facility] LABCLIA [id number] [place] [address] ALT [Catalytic activity/Vol] 36 U/L Normal 10-54 [facility] Comment on above: Order Comment: Speci men Type: BLOOD SPECIMENOrdering Facility: [facility] Address: [address] [place] [address] Performed By: #### 2 4323-8 ####[facility] LABCLIA [id number] [place] [address] Anion gap [Moles/Vol] 9 mmol/L Normal 9-18 [facility] Comment on above: Order Comment: Speci men Type: BLOOD SPECIMENOrdering Facility: [facility] Address: [address] [place] [address] Performed By: #### 2 4323-8 ####[facility] LABCLIA [id number] [place] [address] AST [Catalytic activity/Vol] 34 U/L Normal 14-40 [facility] Comment on above: Order Comment: Speci men Type: BLOOD SPECIMENOrdering Facility: [facility] Address: [address] [place] [address] Performed By: #### 2 4323-8 ####[facility] LABCLIA [id number] [place] [address] Bilirubin [Mass/Vol] 0.3 mg/dL Normal 0.2-1.3 [facility] Comment on above: Order Comment: Speci men Type: BLOOD SPECIMENOrdering Facility: [facility] Address: [address] [place] [address] Performed By: #### 2 4323-8 ####[facility] LABCLIA [id number] [place] [address] Calcium [Mass/Vol] 9.4 mg/dL Normal 8.5-10.2 [facility] Comment on above: Order Comment: Speci men Type: BLOOD SPECIMENOrdering Facility: [facility] Address: [address] [place] [address] Performed By: #### 2 4323-8 ####[facility] LABCLIA [id number] [place] [address] Chloride [Moles/Vol] 104 mmol/L Normal 97-105 [facility] Comment on above: Order Comment: Speci men Type: BLOOD SPECIMENOrdering Facility: [facility] Address: [address] [place] [address] Performed By: #### 2 4323-8 ####[facility] LABCLIA [id number] [place] [address] CO2 [Moles/Vol] 19 mmol/L Low 22-30 [facility] Comment on above: Order Comment: Speci men Type: BLOOD SPECIMENOrdering Facility: [facility] Address: [address] [place] [address] Performed By: #### 2 4323-8 ####[facility] LABCLIA [id number] [place] [address] Creatinine [Mass/Vol] 0.85 mg/dL Normal 0.73-1.22 [facility] Comment on above: Order Comment: Speci men Type: BLOOD SPECIMENOrdering Facility: [facility] Address: [address] [place] [address] Performed By: #### 2 4323-8 ####[facility] LABCLIA [id number] [place] [address] ESTIMATED GLOMERULAR FILTRATION RATE 96 mL/min/1.73m??? Normal >=60 [facility] Comment on above: Order Comment: Wolfgangabiola real Type: BLOOD SPECIMENOrdering Facility: [facility] Address: [address] [place] [address] Result Comment: Megan mated Glomerular Filtration Rate [...] actual GFR. Performed By: #### 2 4323-8 ####[facility] LABCLIA [id number] [place] [address] Glucose [Mass/Vol] 501 mg/dL High 74-99 [facility] Comment on above: Order Comment: Speci farhan Type: BLOOD SPECIMENOrdering Facility: [facility] Address: [address] [place] [address] Result Comment: The [place] [employer] (ADA) provides guidance for cutoff [...] Standards of Medical Care in Diabetes 2016, [place] [employer]. Diabetes Care. 2016.39(Suppl 1). Performed By: #### 2 4323-8 ####[facility] LABCLIA [id number] [place] [address] Potassium [Moles/Vol] 5.4 mmol/L High 3.7-5.1 [facility] Comment on above: Order Comment: Speci men Type: BLOOD SPECIMENOrdering Facility: [facility] Address: [address] [place] [address] Performed By: #### 2 4323-8 ####[facility] LABCLIA [id number] [place] [address] Protein [Mass/Vol] 7.4 g/dL Normal 6.3-8.0 [facility] Comment on above: Order Comment: Speci men Type: BLOOD SPECIMENOrdering Facility: [facility] Address: [address] [place] [address] Performed By: #### 2 4323-8 ####[facility] LABCLIA [id number] [place] [address] Sodium [Moles/Vol] 132 mmol/L Low 136-144 [facility] Comment on above: Order Comment: Speci men Type: BLOOD SPECIMENOrdering Facility: [facility] Address: [address] [place] [address] Performed By: #### 2 4323-8 ####[facility] LABCLIA [id number] [place] [address] Urea nitrogen [Mass/Vol] 29 mg/dL High 9-24 [facility] Comment on above: Order Comment: Speci men Type: BLOOD SPECIMENOrdering Facility: [facility] Address: [address] [place] [address] Performed By: #### 2 4323-8 ####[facility] LABIA [id number] [place] [address] Ferritin SerPl-ncon 2022 Ferritin [Mass/Vol] 409.0 ng/mL Normal 30.3-565.7 [facility] Comment on above: Order Comment: Speci men Type: BLOOD SPECIMENOrdering Facility: [facility] Address: [address] [place] [address] Performed By: #### 5 0190-8, 9, 2275-4, 8 ####[facility] LABCLIA [id number] [place] [id number] [place] Folate SerPl-mCncon 08-08-19 Folate [Mass/Vol] 8.4 ng/mL Normal >4.7 [facility] Comment on above: Order Comment: Speci men Type: BLOOD SPECIMENOrdering Facility: [facility] Address: [address] [place] [address] Performed By: #### 5 0190-8, 9, 4, 8 ####[facility] LABCLIA [id number] [place] [address] [place] Iron and Iron binding capaci ty panelon 08-08-2022 Iron [Mass/Vol] 35 ug/dL Low 41-186 [facility] Comment on above: Order Comment: Speci men Type: BLOOD SPECIMENOrdering Facility: [facility] Address: [address] [place] [address] Performed By: #### 5 0190-8, 9, 2275-09, 2284-01 ####[facility] LABIA [id number] [place] [address] [place] Iron binding capacity [Mass/Vol] 253 ug/dL Normal 232-386 [facility] Comment on above: Order Comment: Speci men Type: BLOOD SPECIMENOrdering Facility: [facility] Address: [address] Performed By: #### 5 0190-8, 9, 2275-09, 2284-01 ####[facility] LABCLIA [id number] [address] [place] Iron/TIBC [Molar ratio] 13.8 % Low 15.0-57.0 [facility] Comment on above: Order Comment: Speci men Type: BLOOD SPECIMENOrdering Facility: [facility] Address: [address] [place] [id number] Performed By: #### 5 0190-8, 2132-02, 2275-09, 2284-01 ####[facility] LABCLIA [id number] [place] [address] [place] Vit B12 SerPl-mCncon 023 Cobalamin (Vitamin B12) [Mass/Vol] 821 pg/mL Normal 232-1245 [facility] Comment on above: Order Comment: Speci men Type: BLOOD SPECIMENOrdering Facility: [facility] Address: [address] [place] [address] Performed By: #### 5 0190-8, 2132-02, 2275-09, 2284-01 ####[facility] LABCLIA [id number] [place] [address] [place] BNPon 07-12-2022 Natriuretic peptide B (Bld) [Mass/Vol] 3610.0 pg/mL Critically high <=900.0 [facility] Comment on above: Performed By: #### P T, PTT #### [facility] [address] [place] [address] Dr. Mel Barrientos CBC AUTO DIFFon 07-12-2022 BASO # 0.0 103/ul Normal 0.0-0.1 [facility] Comment on above: Performed By: #### C BC #### [facility] [address] [place] [address] Dr. Mel Barrientos Basophils/100 WBC (Bld) 0.4 % Normal 0.2-2.0 [facility] Comment on above: Performed By: #### C BC #### [facility] [address] [place] [address] Dr. Mel Barrientos EO # 0.1 103/ul Normal 0.0-0.7 [facility] Comment on above: Performed By: #### C BC #### [facility] [address] [place] [address] Dr. Mel Barrientos Eosinophils/100 WBC (Bld) 3.5 % Normal 0.9-7.0 [facility] Comment on above: Performed By: #### C BC #### [facility] [address] [place] [address] Dr. Mel Barrientos Erythrocyte distribution width (RBC) [Ratio] 12.9 % Normal 11.0-15.0 [facility] Comment on above: Performed By: #### C BC #### [facility] [address] [place] [address] Dr. Mel Barrientos Hematocrit (Bld) [Volume fraction] 25.4 % Critically low 42.0-54.0 [facility] Comment on above: Performed By: #### C BC #### [facility] [address] [place] [address] Dr. Mel Barrientos Hemoglobin (Bld) [Mass/Vol] 8.3 g/dL Critically low 14.0-18.0 [facility] Comment on above: Performed By: #### C BC #### [facility] [address] [place] [address] Dr. Mel Barrientos IG # 0.00 10e3/ul Normal 0.00-0.03 [facility] Comment on above: Performed By: #### C BC #### [facility] [address] [place] [address] Dr. Mel Barrientos IG % 0.0 % Normal 0.0-0.5 [facility] Comment on above: Performed By: #### C BC #### [facility] [address] [place] [address] Dr. Mel Barrientos LYMPH # 1.0 103/ul Critically low 1.2-3.8 [facility] Comment on above: Performed By: #### C BC #### [facility] [address] [place] [address] Dr. Mel Barrientos Lymphocytes/100 WBC (Bld) 35.0 % Normal 20.5-60.0 [facility] Comment on above: Performed By: #### C BC #### [facility] [address] [place] [address] Dr. Mel Barrientos MANUAL DIFF REQ NO Normal [facility] Comment on above: Performed By: #### C BC #### [facility] [address] [place] [address] Dr. Mel Barrientos MCH (RBC) [Entitic mass] 33.5 pg Normal 25.9-34.0 [facility] Comment on above: Performed By: #### C BC #### [facility] [address] [place] [address] Dr. Mel Barrientos MCHC (RBC) [Mass/Vol] 32.7 g/dL Normal 29.9-35.2 [facility] Comment on above: Performed By: #### C BC #### [facility] [address] [place] [address] Dr. Mel Barrientos MCV (RBC) [Entitic vol] 102.4 fL Critically high 80.0-94.0 [facility] Comment on above: Performed By: #### C BC #### [facility] [address] [place] [address] Dr. Mel Barrientos MONO # 0.5 103/ul Normal 0.3-0.8 [facility] Comment on above: Performed By: #### C BC #### [facility] [address] [place] [address] Dr. Mel Barrientos Monocytes/100 WBC (Bld) 18.7 % Critically high 1.7-12.0 [facility] Comment on above: Performed By: #### C BC #### [facility] [address] [place] [address] Dr. Mel Barrientos NEUT # 1.2 103/ul Critically low 1.4-6.5 [facility] Comment on above: Performed By: #### C BC #### [facility] [address] [place] [address] Dr. Mel Barrientos Neutrophils/100 WBC (Bld) 42.4 % Critically low 43.0-75.0 [facility] Comment on above: Performed By: #### C BC #### [facility] [address] [place] [address] Dr. Mel Barrientos Platelet mean volume (Bld) [Entitic vol] 8.6 fL Critically low 9.5-13.5 [facility] Comment on above: Performed By: #### C BC #### [facility] [address] [place] [address] Dr. Mel Barrientos PLT 208 103/ul Normal 150-450 [facility] Comment on above: Performed By: #### C BC #### [facility] [address] [place] [address] Dr. Mel Barrientos RBC 2.48 106/ul Critically low 4.70-6.10 [facility] Comment on above: Performed By: #### C BC #### [facility] [address] [place] [address] Dr. Mel Barrientos WBC 2.8 103/ul Critically low 4.0-11.0 [facility] Comment on above: Performed By: #### C BC #### [facility] [address] [place] [address] Dr. Mel Barrientos LIPID PROFILEon 07-12-2022 CHOL-HDL RATIO NORM SEE BELOW Normal [facility] Comment on above: Result Comment: 3.3 - 4.4 LOW RISK 4.4 - 7.1 AVERAGE RISK 7.1 - 11.0 MODERATE RISK >11.0 HIGH RISK Performed By: #### P T, PTT #### [facility] [address] [place] [address] Dr. Mel Barrientos Cholesterol [Mass/Vol] 74 mg/dL Normal <=200 [facility] Comment on above: Performed By: #### P T, PTT #### [facility] [address] [place] [address] Dr. Mel Barrientos Cholesterol in HDL [Mass/Vol] 24 mg/dL Critically low 40-60 [facility] Comment on above: Performed By: #### P T, PTT #### [facility] [address] [place] [address] Dr. Mel Barrientos Cholesterol in LDL [Mass/Vol] 36.8 mg/dL Normal [facility] Comment on above: Performed By: #### P T, PTT #### [facility] [address] [place], [place] [id number] Dr. Mel Barrientos Cholesterol.total/Cho lesterol in HDL [Mass ratio] 3.1 {ratio} Normal [facility] Comment on above: Performed By: #### P T, PTT #### [facility] [address] [place] [address] Dr. Mel Barrientos HDL NORMAL > or = 60 mg/dl - LO W CARDIOVASCULAR RISK <40 mg/dl - HIGH CARDIOVASCULAR RISK Normal [facility] Comment on above: Performed By: #### P T, PTT #### [facility] [address] [address] [address] Mel Barrientos LDL CALC NORMAL SEE BELOW Normal [facility] Comment on above: Result Comment: <100 mg/dl OPTIMAL 100 - 129 mg/dl NEAR OR ABOVE OPTIMAL 130 - 159 mg/dl BORDERLINE HIGH 160 - 189 mg/dl HIGH >190 mg/dl VERY HIGH Performed By: #### P T, PTT #### [facility] [address] [place] [address] Dr. Mel Barrientos Triglyceride [Mass/Vol] 66 mg/dL Normal <=150 [facility] Comment on above: Performed By: #### P T, PTT #### [facility] [address] [place] [address] Dr. Mel Barrientos VLDL CALC 13.2 mg/dL Normal [facility] Comment on above: Performed By: #### P T, PTT #### [facility] [address] [place] [address] Dr. Mel Barrientos PROF 14(COMP METB)on 023 Albumin [Mass/Vol] 2.7 g/dL Critically low 3.4-5.0 [facility] Comment on above: Performed By: #### P T, PTT #### [facility] [address] [place] [address] Dr. Mel Barrientos Albumin/Globulin [Mass ratio] 0.7 {ratio} Normal [facility] Comment on above: Performed By: #### P T, PTT #### [facility] [address] [place] [address] Dr. Mel Barrientos ALP [Catalytic activity/Vol] 128 U/L Critically high 46-116 [facility] Comment on above: Performed By: #### P T, PTT #### [facility] [address] [address] [address] Mel Barrientos ALT [Catalytic activity/Vol] 37 U/L Normal 16-63 [facility] Comment on above: Performed By: #### P T, PTT #### [facility] [address] [address] [address] Mel Barrientos Anion gap [Moles/Vol] 11.6 mmol/L Normal [facility] Comment on above: Performed By: #### P T, PTT #### [facility] [address] [address] [address] Mel Barrientos AST [Catalytic activity/Vol] 24 U/L Normal 15-37 [facility] Comment on above: Performed By: #### P T, PTT #### [facility] [address] [place] [address] Dr. Mel Barrientos Bilirubin [Mass/Vol] 0.3 mg/dL Normal 0.2-1.0 [facility] Comment on above: Performed By: #### P T, PTT #### [facility] [address] [address] [address] Mel Barrientos Calcium [Mass/Vol] 8.4 mg/dL Critically low 8.5-10.1 [facility] Comment on above: Performed By: #### P T, PTT #### [facility] [address] [address] [address] Mel Barrientos Chloride [Moles/Vol] 100 mmol/L Normal 98-107 [facility] Comment on above: Performed By: #### P T, PTT #### [facility] [address] [address] [address] Mel Barrientos CO2 [Moles/Vol] 24.5 mmol/L Normal 21.0-32.0 [facility] Comment on above: Performed By: #### P T, PTT #### [facility] [address] [address] [address] Mel Barrientos Creatinine [Mass/Vol] 0.80 mg/dL Normal 0.70-1.30 [facility] Comment on above: Performed By: #### P T, PTT #### [facility] [address] [place] [address] Dr. Mel Barrientos EGFR-AF MICRONESIAN >60 Normal >=60 [facility] Comment on above: Performed By: #### P T, PTT #### [facility] [address] [address] [address] Mel Barrientos EGFR-NON AF MICRONESIAN >60 Normal >=60 [facility] Comment on above: Performed By: #### P T, PTT #### [facility] [address] [place] [address] Dr. Mel Barrientos Globulin (S) [Mass/Vol] 3.8 g/dL Normal [facility] Comment on above: Performed By: #### P T, PTT #### [facility] [address] [place] [address] Dr. Mel Barrientos Glucose [Mass/Vol] 134 mg/dL Critically high 74-106 T [facility] Comment on above: Performed By: #### P T, PTT #### [facility] [address] [place] [address] Dr. Mel Barrientos Potassium [Moles/Vol] 4.1 mmol/L Normal 3.5-5.1 [facility] Comment on above: Performed By: #### P T, PTT #### [facility] [address] [place] [address] Dr. Mel Barrientos Protein [Mass/Vol] 6.5 g/dL Normal 6.4-8.2 [facility] Comment on above: Performed By: #### P T, PTT #### [facility] [address] [address] [address] Mel Barrientos Sodium [Moles/Vol] 132 mmol/L Critically low 136-145 [facility] Comment on above: Performed By: #### P T, PTT #### [facility] [address] [place] [address] Dr. Mel Barrientos Urea nitrogen [Mass/Vol] 19.0 mg/dL Critically high 7.0-18.0 [facility] Comment on above: Performed By: #### P T, PTT #### [facility] [address] [place] [address] Dr. Mel Barirentos Urea nitrogen/Creatinine [Mass ratio] 23.8 mg/mg Normal [facility] Comment on above: Performed By: #### P T, PTT #### [facility] [address] [place] [address] Dr. Mel Barrientos T4on 07-12-2022 T4 [Mass/Vol] 5.90 ug/dL Normal 4.50-12.10 [facility] Comment on above: Performed By: #### P T, PTT #### [facility] [address] [place] [address] Dr. Mel Barrientos TSHon 07-12-2022 TSH 3.686 uIU/mL Normal 0.358-3.74 0 [facility] Comment on above: Performed By: #### P T, PTT #### [facility] [address] [place] [address] Dr. Mel Barrientos BNPon 07-11-2022 Natriuretic peptide B (Bld) [Mass/Vol] 1694.0 pg/mL Critically high <=900.0 [facility] Comment on above: Performed By: #### L IPID, CMP #### [facility] [address] [place] [address] Dr. Mel Barrientos CARDIAC SUSHILA 3-6on 3 CK [Catalytic activity/Vol] 139 U/L Normal 39-308 [facility] Comment on above: Performed By: #### C MREP #### [facility] [address] [place] [address] Dr. Mel Barrientos CK.MB [Mass/Vol] 1.99 ng/mL Normal <=3.60 [facility] Comment on above: Performed By: #### C MREP #### [facility] [address] [place] [address] Dr. Mel Barrientos HSTROP 6.9 pg/mL Normal 4.0-76.1 [facility] Comment on above: Result Comment: CUT- OFF POINTS HAVE BEEN ESTABLISHED BASED ON THE FOURTH UNIVERSAL DEFINITIONS OF MYOCARDIAL INFARCTION. THE UPPER REFERENCE LIMIT (URL) OF TROPONIN, DEFINED THE 99TH PERCENTILE OF cTnI DISTRIBUTION IN A REFERENCE POPULATION, HAS BEEN CONFIRMED THE DECISION THRESHOLD FOR DE DIAGNOSIS. Performed By: #### C MREP #### [facility] [address] [place] [address] Dr. Mel Barrientos CK [Catalytic activity/Vol] 127 U/L Normal 39-308 [facility] Comment on above: Performed By: #### P T, PTT #### [facility] [address] [place] [address] Dr. Mel Barrientos CK.MB [Mass/Vol] 2.30 ng/mL Normal <=3.60 [facility] Comment on above: Performed By: #### P T, PTT #### [facility] [address] [place] [address] Dr. Mel Barrientos HSTROP 6.3 pg/mL Normal 4.0-76.1 [facility] Comment on above: Result Comment: CUT- OFF POINTS HAVE BEEN ESTABLISHED BASED ON THE FOURTH UNIVERSAL DEFINITIONS OF MYOCARDIAL INFARCTION. THE UPPER REFERENCE LIMIT (URL) OF TROPONIN, DEFINED THE 99TH PERCENTILE OF cTnI DISTRIBUTION IN A REFERENCE POPULATION, HAS BEEN CONFIRMED THE DECISION THRESHOLD FOR DE DIAGNOSIS. Performed By: #### P T, PTT #### [facility] [address] [place] [address] Dr. Mel Barrientos CBC AUTO DIFFon 07-11-2022 BASO # 0.0 103/ul Normal 0.0-0.1 [facility] Comment on above: Performed By: #### C BC #### [facility] [address] [place] [address] Dr. Mel Barrientos Basophils/100 WBC (Bld) 0.3 % Normal 0.2-2.0 [facility] Comment on above: Performed By: #### C BC #### [facility] [address] [place] [address] Dr. Mel Barrientos EO # 0.1 103/ul Normal 0.0-0.7 [facility] Comment on above: Performed By: #### C BC #### [facility] [address] [place] [address] Dr. Mel Barrientos Eosinophils/100 WBC (Bld) 3.7 % Normal 0.9-7.0 [facility] Comment on above: Performed By: #### C BC #### [facility] [address] [place] [address] Dr. Mel Barrientos Erythrocyte distribution width (RBC) [Ratio] 13.3 % Normal 11.0-15.0 [facility] Comment on above: Performed By: #### C BC #### [facility] [address] [place] [address] Dr. Mel Barrientos Hematocrit (Bld) [Volume fraction] 31.7 % Critically low 42.0-54.0 [facility] Comment on above: Performed By: #### C BC #### [facility] [address] [place] [address] Dr. Mel Barrientos Hemoglobin (Bld) [Mass/Vol] 9.3 g/dL Critically low 14.0-18.0 [facility] Comment on above: Performed By: #### C BC #### [facility] [address] [place] [address] Dr. Mel Barrientos IG # 0.01 10e3/ul Normal 0.00-0.03 [facility] Comment on above: Performed By: #### C BC #### [facility] [address] [place] [address] Dr. Mel Barrientos IG % 0.3 % Normal 0.0-0.5 [facility] Comment on above: Performed By: #### C BC #### [facility] [address] [place] [address] Dr. Mel Barrientos LYMPH # 1.0 103/ul Critically low 1.2-3.8 [facility] Comment on above: Performed By: #### C BC #### [facility] [address] [place] [address] Dr. Mel Barrientos Lymphocytes/100 WBC (Bld) 26.1 % Normal 20.5-60.0 [facility] Comment on above: Performed By: #### C BC #### [facility] [address] [place] [address] Dr. Mel Barrientos MANUAL DIFF REQ NO Normal [facility] Comment on above: Performed By: #### C BC #### [facility] [address] [place] [address] Dr. Mel Barrientos MCH (RBC) [Entitic mass] 33.9 pg Normal 25.9-34.0 [facility] Comment on above: Performed By: #### C BC #### [facility] [address] [place] [address] Dr. Mel Barrientos MCHC (RBC) [Mass/Vol] 29.3 g/dL Critically low 29.9-35.2 [facility] Comment on above: Performed By: #### C BC #### [facility] [address] [place] [address] Dr. Mel Barrientos MCV (RBC) [Entitic vol] 115.7 fL Critically high 80.0-94.0 [facility] Comment on above: Performed By: #### C BC #### [facility] [address] [place] [address] Dr. Mel Barrientos MONO # 0.5 103/ul Normal 0.3-0.8 [facility] Comment on above: Performed By: #### C BC #### [facility] [address] [place] [address] Dr. Mel Barrientos Monocytes/100 WBC (Bld) 13.3 % Critically high 1.7-12.0 [facility] Comment on above: Performed By: #### C BC #### [facility] [address] [place] [address] Dr. Mel Barrientos NEUT # 2.1 103/ul Normal 1.4-6.5 [facility] Comment on above: Performed By: #### C BC #### [facility] [address] [place] [address] Dr. Mel Barrientos Neutrophils/100 WBC (Bld) 56.3 % Normal 43.0-75.0 [facility] Comment on above: Performed By: #### C BC #### [facility] [address] [place] [address] Dr. Mel Barrientos Platelet mean volume (Bld) [Entitic vol] 9.2 fL Critically low 9.5-13.5 [facility] Comment on above: Performed By: #### C BC #### [facility] [address] [address] [address] Mel Barrientos PLT 259 103/ul Normal 150-450 [facility] Comment on above: Performed By: #### C BC #### [facility] [address] [address] [address] Mel Barrientos RBC 2.74 106/ul Critically low 4.70-6.10 [facility] Comment on above: Performed By: #### C BC #### [facility] [address] [address] [address] Mel Barrientos WBC 3.8 103/ul Critically low 4.0-11.0 [facility] Comment on above: Performed By: #### C BC #### [facility] [address] [address] [address] Mel Barrient[facility] SARS-CoV-2 (COVID-19) RNA NE+probe Ql (Unsp spec) Not detected Normal NOT DETECTED [facility] Comment on above: Result Comment: When [...] for this test is supported by the Dietary Aide of Health and Human Service's declaration that [...] Performed By: #### P T, PTT #### [facility] [address] [place] [address] Dr. Mel Barrientos GLYCOHEMOGLOBIN A1Con 2022 ADA RECOMMENDATION SEE BELOW Normal [facility] Comment on above: Result Comment: ADA RECOMMENDED LIMIT 4.0 - 6.0 ADA THERAPEUTIC TARGET < 7.0 ACTION SUGGESTED > 7.0 Performed By: #### L IPID, CMP #### [facility] [address] [place] [address] Dr. Mel Barrientos Glucose [Mass/Vol] 128 mg/dL Normal [facility] Comment on above: Performed By: #### L IPID, CMP #### [facility] [address] [place] [address] Dr. Mel Barrientos HbA1c (Bld) [Mass fraction] 6.1 % Normal 4.5-6.2 [facility] Comment on above: Performed By: #### L IPID, CMP #### [facility] [address] [place] [address] Dr. Mel Barrientos LIPASEon 07-11-2022 Lipase [Catalytic activity/Vol] 10.0 U/L Critically low 73.0-393.0 [facility] Comment on above: Performed By: #### L IPID, CMP #### [facility] [address] [place] [address] Dr. Mel Barrientos PROF 14(COMP METB)on 023 Albumin [Mass/Vol] 3.1 g/dL Critically low 3.4-5.0 [facility] Comment on above: Performed By: #### L IPID, CMP #### [facility] [address] [place] [address] Dr. Mel Barrientos Albumin/Globulin [Mass ratio] 0.7 {ratio} Normal [facility] Comment on above: Performed By: #### L IPID, CMP #### [facility] [address] [place] [address] Dr. Mel Barrientos ALP [Catalytic activity/Vol] 143 U/L Critically high 46-116 [facility] Comment on above: Performed By: #### L IPID, CMP #### [facility] [address] [address] [address] Mel Barrientos ALT [Catalytic activity/Vol] 52 U/L Normal 16-63 [facility] Comment on above: Performed By: #### L IPID, CMP #### [facility] [address] [address] [address] Mel Barrientos Anion gap [Moles/Vol] 12.7 mmol/L Normal [facility] Comment on above: Performed By: #### L IPID, CMP #### [facility] [address] [address] [address] Mel Barrientos AST [Catalytic activity/Vol] 31 U/L Normal 15-37 [facility] Comment on above: Performed By: #### L IPID, CMP #### [facility] [address] [place] [address] Dr. Mel Barrientos Bilirubin [Mass/Vol] 0.3 mg/dL Normal 0.2-1.0 [facility] Comment on above: Performed By: #### L IPID, CMP #### [facility] [address] [place] [address] Dr. Mel Barrientos Calcium [Mass/Vol] 8.6 mg/dL Normal 8.5-10.1 [facility] Comment on above: Performed By: #### L IPID, CMP #### [facility] [address] [place] [address] Dr. Mel Barrientos Chloride [Moles/Vol] 103 mmol/L Normal 98-107 [facility] Comment on above: Performed By: #### L IPID, CMP #### [facility] [address] [place] [address] Dr. Mel Barrientos CO2 [Moles/Vol] 24.7 mmol/L Normal 21.0-32.0 [facility] Comment on above: Performed By: #### L IPID, CMP #### [facility] [address] [place] [address] Dr. Mel Barrientos Creatinine [Mass/Vol] 0.90 mg/dL Normal 0.70-1.30 [facility] Comment on above: Performed By: #### L IPID, CMP #### [facility] [address] [address] [address] Mel Barrientos EGFR-AF MICRONESIAN >60 Normal >=60 [facility] Comment on above: Performed By: #### L IPID, CMP #### [facility] [address] [address] [address] Mel Barrientos EGFR-NON AF MICRONESIAN >60 Normal >=60 [facility] Comment on above: Performed By: #### L IPID, CMP #### [facility] [address] [address] [address] Mel Barrientos Globulin (S) [Mass/Vol] 4.2 g/dL Normal [facility] Comment on above: Performed By: #### L IPID, CMP #### [facility] [address] [address] [address] Mel Barrientos Glucose [Mass/Vol] 204 mg/dL Critically high 74-106 [facility] Comment on above: Performed By: #### L IPID, CMP #### [facility] [address] [address] [address] Mel Barrientos Potassium [Moles/Vol] 4.4 mmol/L Normal 3.5-5.1 [facility] Comment on above: Performed By: #### L IPID, CMP #### [facility] [address] [place] [address] Dr. Mel Barrientos Protein [Mass/Vol] 7.3 g/dL Normal 6.4-8.2 [facility] Comment on above: Performed By: #### L IPID, CMP #### [facility] [address] [address] [address] Mel Barrientos Sodium [Moles/Vol] 136 mmol/L Normal 136-145 [facility] Comment on above: Performed By: #### L IPID, CMP #### [facility] [address] [address] [address] Mel Barrientos Urea nitrogen [Mass/Vol] 20.0 mg/dL Critically high 7.0-18.0 [facility] Comment on above: Performed By: #### L IPID, CMP #### [facility] [address] [place] [address] Dr. Mel Barrientos Urea nitrogen/Creatinine [Mass ratio] 22.2 mg/mg Normal [facility] Comment on above: Performed By: #### L IPID, CMP #### [facility] [address] [place] [address] Dr. Mel Barrientos PROTIMEon 07-11-2022 INR Coag (PPP) [Relative time] 1.14 {INR} Normal [facility] Comment on above: Performed By: #### P T, PTT #### [facility] [address] [place] [address] Dr. Mel Barrientos INR GUIDELINES SEE BELOW Normal [facility] Comment on above: Result Comment: JESSIKA RED INR: 2.0 - 3.0 CONDITIONS NOT LISTED BELOW 2.5 - 3.5 FOR PROSTHETIC HEART VALVE REPLACEMENT 2.5 - 3.5 RECURRENT THROMBOSIS Performed By: #### P T, PTT #### [facility] [address] [place] [address] Dr. Mel Barrientos PT Coag (PPP) [Time] 12.0 s Critically high 9.0-11.6 [facility] Comment on above: Performed By: #### P T, PTT #### [facility] [address] [place] [address] Dr. Mel Barrientos PTTon 07-11-2022 aPTT Coag (Bld) [Time] 30.8 s Normal 22.3-36.2 [facility] Comment on above: Performed By: #### P T, PTT #### [facility] [address] [place] [address] Dr. Mel Barrientos TROPONIN, HIGH SENSITIVITYon 07-11-2022 HSTROP 6.6 pg/mL Normal 4.0-76.1 [facility] Comment on above: Result Comment: CUT- OFF POINTS HAVE BEEN ESTABLISHED BASED ON THE FOURTH UNIVERSAL DEFINITIONS OF MYOCARDIAL INFARCTION. THE UPPER REFERENCE LIMIT (URL) OF TROPONIN, DEFINED THE 99TH PERCENTILE OF cTnI DISTRIBUTION IN A REFERENCE POPULATION, HAS BEEN CONFIRMED THE DECISION THRESHOLD FOR DE DIAGNOSIS. Performed By: #### L IPID, CMP #### [facility] [address] [place], [place] [address] Dr. Mel Barrientos XR CHEST 1 Von [...] by: MAR MOE Date: 2022-07-11 14:[address] [facility] CNPNon 07-07-2022 CNPN Normal [facility] CBC W Auto Differential pane l (Bld)on 07-03-2022 Basophils (Bld) [#/Vol] 10*3/uL Normal <0.11 [facility] Comment on above: Order Comment: Speci men Type: BLOOD SPECIMENOrdering Facility: [facility] Address: [address] [address] Performed By: #### 5 7021-8 ####[facility] LABCLIA [id number] [place] [address] Basophils/100 WBC (Bld) 0.6 % Normal [facility] Comment on above: Order Comment: Speci men Type: BLOOD SPECIMENOrdering Facility: [facility] Address: [address] [address] Performed By: #### 5 7021-8 ####[facility] LABCLIA [id number] [place] [address] Differential cell count method Nom (Bld) Auto Normal [facility] Comment on above: Order Comment: Speci men Type: BLOOD SPECIMENOrdering Facility: [facility] Address: [address] [address] Performed By: #### 5 7021-8 ####[facility] LABCLIA [id number] [place] [address] Eosinophils (Bld) [#/Vol] 0.19 10*3/uL Normal <0.46 [facility] Comment on above: Order Comment: Speci men Type: BLOOD SPECIMENOrdering Facility: [facility] Address: [address] [place] [address] Performed By: #### 5 7021-8 ####[facility] LABCLIA [id number] [place] [address] Eosinophils/100 WBC (Bld) 5.7 % Normal [facility] Comment on above: Order Comment: Speci men Type: BLOOD SPECIMENOrdering Facility: [facility] Address: [address] [place] [address] Performed By: #### 5 7021-8 ####[facility] LABCLIA [id number] [place] [address] Erythrocyte distribution width (RBC) [Ratio] 13.3 % Normal 11.5-15.0 [facility] Comment on above: Order Comment: Speci men Type: BLOOD SPECIMENOrdering Facility: [facility] Address: [address] [place] [address] Performed By: #### 5 7021-8 ####[facility] LABCLIA [id number] [place] [address] Hematocrit (Bld) [Volume fraction] 27.5 % Low 39.0-51.0 [facility] Comment on above: Order Comment: Speci men Type: BLOOD SPECIMENOrdering Facility: [facility] Address: [address] [place] [address] Performed By: #### 5 7021-8 ####[facility] LABCLIA [id number] [place] [address] Hemoglobin (Bld) [Mass/Vol] 8.7 g/dL Low 13.0-17.0 [facility] Comment on above: Order Comment: Speci men Type: BLOOD SPECIMENOrdering Facility: [facility] Address: [address] [place], [place] [address] Performed By: #### 5 7021-8 ####[facility] LABCLIA [id number] [place] [address] Immature granulocytes (Bld) [#/Vol] 10*3/uL Normal <0.10 [facility] Comment on above: Order Comment: Speci men Type: BLOOD SPECIMENOrdering Facility: [facility] Address: [address] [place] [address] Performed By: #### 5 7021-8 ####[facility] LABCLIA [id number] [place] [address] Immature granulocytes/100 WBC (Bld) 0.3 % Normal [facility] Comment on above: Order Comment: Speci men Type: BLOOD SPECIMENOrdering Facility: [facility] Address: [address] [place] [address] Performed By: #### 5 7021-8 ####[facility] LABCLIA [id number] [place] [address] Lymphocytes (Bld) [#/Vol] 0.83 10*3/uL Low 1.00-4.00 [facility] Comment on above: Order Comment: Speci men Type: BLOOD SPECIMENOrdering Facility: [facility] Address: [address] [place] [address] Performed By: #### 5 7021-8 ####[facility] LABCLIA [id number] [place] [address] Lymphocytes/100 WBC (Bld) 24.9 % Normal [facility] Comment on above: Order Comment: Speci men Type: BLOOD SPECIMENOrdering Facility: [facility] Address: [address] [place] [address] Performed By: #### 5 7021-8 ####[facility] LABCLIA [id number] [place] [address] MCH (RBC) [Entitic mass] 34.1 pg High 26.0-34.0 [facility] Comment on above: Order Comment: Speci men Type: BLOOD SPECIMENOrdering Facility: [facility] Address: [address] [address] Performed By: #### 5 7021-8 ####[facility] LABCLIA [id number] [place] [address] MCHC (RBC) [Mass/Vol] 31.6 g/dL Normal 30.5-36.0 [facility] Comment on above: Order Comment: Speci men Type: BLOOD SPECIMENOrdering Facility: [facility] Address: [address] [address] Performed By: #### 5 7021-8 ####[facility] LABCLIA [id number] [place] [address] MCV (RBC) [Entitic vol] 107.8 fL High 80.0-100.0 [facility] Comment on above: Order Comment: Speci men Type: BLOOD SPECIMENOrdering Facility: [facility] Address: [address] [address] Performed By: #### 5 7021-8 ####[facility] LABCLIA [id number] [place] [address] Monocytes (Bld) [#/Vol] 0.41 10*3/uL Normal <0.87 [facility] Comment on above: Order Comment: Speci men Type: BLOOD SPECIMENOrdering Facility: [facility] Address: [address] [address] Performed By: #### 5 7021-8 ####[facility] LABCLIA [id number] [place] [address] Monocytes/100 WBC (Bld) 12.3 % Normal [facility] Comment on above: Order Comment: Speci men Type: BLOOD SPECIMENOrdering Facility: [facility] Address: [address] [address] Performed By: #### 5 7021-8 ####[facility] LABCLIA [id number] [place] [address] Neutrophils (Bld) [#/Vol] 1.88 10*3/uL Normal 1.45-7.50 [facility] Comment on above: Order Comment: Speci men Type: BLOOD SPECIMENOrdering Facility: [facility] Address: [address] [place] [address] Performed By: #### 5 7021-8 ####[facility] LABCLIA [id number] [place] [address] Neutrophils/100 WBC (Bld) 56.2 % Normal [facility] Comment on above: Order Comment: Speci men Type: BLOOD SPECIMENOrdering Facility: [facility] Address: [address] [place] [address] Performed By: #### 5 7021-8 ####[facility] LABCLIA [id number] [place] [address] Nucleated RBC (Bld) [#/Vol] 10*3/uL Normal <0.01 [facility] Comment on above: Order Comment: Speci men Type: BLOOD SPECIMENOrdering Facility: [facility] Address: [address] [place] [address] Performed By: #### 5 7021-8 ####[facility] LABCLIA [id number] [place] [address] Nucleated RBC/100 WBC (Bld) [Ratio] 0.0 /100 WBC Normal [facility] Comment on above: Order Comment: Speci men Type: BLOOD SPECIMENOrdering Facility: [facility] Address: [address] [place] [address] Performed By: #### 5 7021-8 ####[facility] LABIA [id number] [place] [address] Platelet mean volume (Bld) [Entitic vol] 8.8 fL Low 9.0-12.7 [facility] Comment on above: Order Comment: Speci men Type: BLOOD SPECIMENOrdering Facility: [facility] Address: [address] [place] [address] Performed By: #### 5 7021-8 ####[facility] LABCLIA [id number] [place] [address] Platelets (Bld) [#/Vol] 231 10*3/uL Normal 150-400 [facility] Comment on above: Order Comment: Speci men Type: BLOOD SPECIMENOrdering Facility: [facility] Address: [address] [place] [address] Performed By: #### 5 7021-8 ####[facility] LABIA [id number] [place] [address] RBC (Bld) [#/Vol] 2.55 10*6/uL Low 4.20-6.00 [facility] Comment on above: Order Comment: Speci men Type: BLOOD SPECIMENOrdering Facility: [facility] Address: [address] [place] [address] Performed By: #### 5 7021-8 ####[facility] LABIA [id number] [place] [address] WBC (Bld) [#/Vol] 3.34 10*3/uL Low 3.70-11.00 [facility] Comment on above: Order Comment: Speci men Type: BLOOD SPECIMENOrdering Facility: [facility] Address: [address] [place] [address] Performed By: #### 5 7021-8 ####[facility] LABIA [id number] [place] [address] CNNURSEon 07-03-2022 CNNURSE Normal [facility] CNOVSPon 07-03-2022 CNOVSP Normal [facility] CT ABD/PEL W IVCONon 023 CT ABD/PEL W IVCON Normal [facility] CT CHEST W IVCONon 3 CT CHEST W IVCON Normal [facility] Cancer Ag19-9 SerPl-aCncon 0 07-03-2022 Cancer Ag 19-9 Qn 9.0 [arb'U]/mL Normal <36.0 [facility] Comment on above: Order Comment: Speci men Type: BLOOD SPECIMENOrdering Facility: [facility] Address: [address] [address] Result Comment: [facility] er antigen 19-9 test is used as an aid in monitoring response to treatment or recurrence in patients with established pancreatic, hepatobiliary, or gastrointestinal malignancies. Clinical correlation is required.The CA 19-9 Antigen test was performed using the [employer] DXI paramagnetic particle chemiluminescent immunoassay method. Results obtained with different assay methods or kits cannot be used interchangeably. Performed By: #### 2 4108-3 ####[facility] LABCLIA [id number] [place] [address] [place] Comprehensive metabolic 2000 panelon 07-03-2022 Albumin [Mass/Vol] 3.5 g/dL Low 3.9-4.9 [facility] Comment on above: Order Comment: Speci men Type: BLOOD SPECIMENOrdering Facility: [facility] Address: [address] [address] Performed By: #### 2 4323-8 ####[facility] LABCLIA [id number] [place] [address] ALP [Catalytic activity/Vol] 140 U/L High 38-113 [facility] Comment on above: Order Comment: Speci men Type: BLOOD SPECIMENOrdering Facility: [facility] Address: [address] [address] Performed By: #### 2 4323-8 ####[facility] LABCLIA [id number] [place] [address] ALT [Catalytic activity/Vol] 32 U/L Normal 10-54 [facility] Comment on above: Order Comment: Speci men Type: BLOOD SPECIMENOrdering Facility: [facility] Address: [address] [address] Performed By: #### 2 4323-8 ####[facility] LABCLIA [id number] [place] [address] Anion gap [Moles/Vol] 7 mmol/L Low 9-18 [facility] Comment on above: Order Comment: Speci men Type: BLOOD SPECIMENOrdering Facility: [facility] Address: [address] [place] [address] Performed By: #### 2 4323-8 ####[facility] LABCLIA [id number] [place] [address] AST [Catalytic activity/Vol] 27 U/L Normal 14-40 [facility] Comment on above: Order Comment: Speci men Type: BLOOD SPECIMENOrdering Facility: [facility] Address: [address] [place] [address] Performed By: #### 2 4323-8 ####[facility] LABCLIA [id number] [place] [address] Bilirubin [Mass/Vol] 0.2 mg/dL Normal 0.2-1.3 [facility] Comment on above: Order Comment: Speci men Type: BLOOD SPECIMENOrdering Facility: [facility] Address: [address] [place] [address] Performed By: #### 2 4323-8 ####[facility] LABCLIA [id number] [place] [address] Calcium [Mass/Vol] 8.5 mg/dL Normal 8.5-10.2 [facility] Comment on above: Order Comment: Speci men Type: BLOOD SPECIMENOrdering Facility: [facility] Address: [address] [place] [address] Performed By: #### 2 4323-8 ####[facility] LABCLIA [id number] [place] [address] Chloride [Moles/Vol] 102 mmol/L Normal 97-105 [facility] Comment on above: Order Comment: Speci men Type: BLOOD SPECIMENOrdering Facility: [facility] Address: [address] [address] Performed By: #### 2 4323-8 ####[facility] LABCLIA [id number] [place] [address] CO2 [Moles/Vol] 21 mmol/L Low 22-30 [facility] Comment on above: Order Comment: Speci men Type: BLOOD SPECIMENOrdering Facility: [facility] Address: [address] [address] Performed By: #### 2 4323-8 ####[facility] LABCLIA [id number] [place] [address] Creatinine [Mass/Vol] 0.70 mg/dL Low 0.73-1.22 [facility] Comment on above: Order Comment: Speci men Type: BLOOD SPECIMENOrdering Facility: [facility] Address: [address] [place] [address] Performed By: #### 2 4323-8 ####[facility] LABCLIA [id number] [place] [address] ESTIMATED GLOMERULAR FILTRATION RATE 102 mL/min/1.73m??? Normal >=60 [facility] Comment on above: Order Comment: Speci men Type: BLOOD SPECIMENOrdering Facility: [facility] Address: [address] [place] [address] Result Comment: Megan mated Glomerular Filtration Rate [...] actual GFR. Performed By: #### 2 4323-8 ####[facility] LABCLIA [id number] [place] [address] Glucose [Mass/Vol] 292 mg/dL High 74-99 [facility] Comment on above: Order Comment: Speci men Type: BLOOD SPECIMENOrdering Facility: [facility] Address: [address] [place] [address] Result Comment: The [place] [employer] (ADA) provides guidance for cutoff [...] Standards of Medical Care in Diabetes 2016, [place] [employer]. Diabetes Care. 2016.39(Suppl 1). Performed By: #### 2 4323-8 ####[facility] LABCLIA [id number] [place] [address] Potassium [Moles/Vol] 4.4 mmol/L Normal 3.7-5.1 [facility] Comment on above: Order Comment: Speci men Type: BLOOD SPECIMENOrdering Facility: [facility] Address: [address] [place] [address] Performed By: #### 2 4323-8 ####[facility] LABCLIA [id number] [place] [address] Protein [Mass/Vol] 6.3 g/dL Normal 6.3-8.0 [facility] Comment on above: Order Comment: Speci men Type: BLOOD SPECIMENOrdering Facility: [facility] Address: [address] [place] [address] Performed By: #### 2 4323-8 ####[facility] LABCLIA [id number] [place] [address] Sodium [Moles/Vol] 130 mmol/L Low 136-144 [facility] Comment on above: Order Comment: Speci men Type: BLOOD SPECIMENOrdering Facility: [facility] Address: [address] [address] Performed By: #### 2 4323-8 ####[facility] LABCLIA [id number] [place] [address] Urea nitrogen [Mass/Vol] 23 mg/dL Normal 9-24 [facility] Comment on above: Order Comment: Speci men Type: BLOOD SPECIMENOrdering Facility: [facility] Address: [address] [place] [address] Performed By: #### 2 4323-8 ####[facility] LABIA [id number] [place] [address] Ferritin SerPl-mCncon 2022 Ferritin [Mass/Vol] 243.0 ng/mL Normal 30.3-565.7 [facility] Comment on above: Order Comment: Speci men Type: BLOOD SPECIMENOrdering Facility: [facility] Address: [address] [place] [address] Performed By: #### 5 0190-8, 6-4, 9, 8 ####[facility] LABCLIA [id number] [place] [address] [place] Folate SerPl-mCncon 07-03-19 23 Folate [Mass/Vol] 4.1 ng/mL Low >4.7 [facility] Comment on above: Order Comment: Speci men Type: BLOOD SPECIMENOrdering Facility: [facility] Address: [address] [place], [place] [address] Performed By: #### 5 0190-8, 2276-4, 2132-02, 8 ####[facility] LABCLIA [id number] [place] [address] [place] Iron and Iron binding capaci ty panelon 07-03-2022 Iron [Mass/Vol] 30 ug/dL Low 41-186 [facility] Comment on above: Order Comment: Speci men Type: BLOOD SPECIMENOrdering Facility: [facility] Address: [address] [place] [address] Performed By: #### 5 0190-8, 2275-09, 2132-02, 2284-01 ####[facility] LABCLIA [id number] [place] [address] [place] Iron binding capacity [Mass/Vol] 212 ug/dL Low 232-386 [facility] Comment on above: Order Comment: Speci men Type: BLOOD SPECIMENOrdering Facility: [facility] Address: [address] Performed By: #### 5 0190-8, 2275-09, 2132-02, 2284-01 ####[facility] LABCLIA [id number] [place] [address] [place] Iron/TIBC [Molar ratio] 14.2 % Low 15.0-57.0 [facility] Comment on above: Order Comment: Speci men Type: BLOOD SPECIMENOrdering Facility: [facility] Address: [address] Performed By: #### 5 0190-8, 2275-09, 2132-02, 2284-01 ####[facility] LABIA [id number] [place] [address] [place] Vit B12 [facility] -05-2 023 Cobalamin (Vitamin B12) [Mass/Vol] 465 pg/mL Normal 232-1245 [facility] Comment on above: Order Comment: Speci men Type: BLOOD SPECIMENOrdering Facility: [facility] Address: [address] [place] [address] Performed By: #### 5 0190-8, 2275-09, 2132-02, 2284-01 ####[facility] LABCLIA [id number] [place] [address] [place] CBC W Auto Differential pane l (Bld)on 06-06-2022 Anisocytosis Ql (Bld) Present Normal [facility] Comment on above: Order Comment: Speci men Type: BLOOD SPECIMENOrdering Facility: [facility] Address: [address] [place] [address] Performed By: #### 5 7021-8 ####[facility] LABCLIA [id number] [address] LABCLIA [id number] [place] [address] [place] Basophils (Bld) [#/Vol] 10*3/uL Normal <0.11 [facility] Comment on above: Order Comment: Speci men Type: BLOOD SPECIMENOrdering Facility: [facility] Address: [address] [place] [address] Performed By: #### 5 7021-8 ####[facility] LABCLIA [id number] [address] LABCLIA [id number] [place] [address] [place] Basophils/100 WBC (Bld) 0.7 % Normal [facility] Comment on above: Order Comment: Speci men Type: BLOOD SPECIMENOrdering Facility: [facility] Address: [address] [place] [address] Performed By: #### 5 7021-8 ####[facility] LABCLIA [id number] [address] LABCLIA [id number] [place] [address] [place] CBC W Differential panel, method unspecified (Bld) Done Normal [facility] Comment on above: Order Comment: Speci men Type: BLOOD SPECIMENOrdering Facility: [facility] Address: [address] [place] [address] Performed By: #### 5 7021-8 ####[facility] LABCLIA [id number] [place] [address] LABCLIA [id number] [place] [address] [place] Differential cell count method Nom (Bld) Auto Normal [facility] Comment on above: Order Comment: Speci men Type: BLOOD SPECIMENOrdering Facility: [facility] Address: [address] [place] [address] Performed By: #### 5 7021-8 ####[facility] LABCLIA [id number] [address] LABCLIA [id number] [place] [address] [place] Eosinophils (Bld) [#/Vol] 0.16 10*3/uL Normal <0.46 [facility] Comment on above: Order Comment: Speci men Type: BLOOD SPECIMENOrdering Facility: [facility] Address: [address] [place] [address] Performed By: #### 5 7021-8 ####[facility] LABCLIA [id number] [address] LABCLIA [id number] [place] [address] [place] Eosinophils/100 WBC (Bld) 5.3 % Normal [facility] Comment on above: Order Comment: Speci men Type: BLOOD SPECIMENOrdering Facility: [facility] Address: [address] [place] [address] Performed By: #### 5 7021-8 ####[facility] LABCLIA [id number] [address] LABCLIA [id number] [place] [address] [place] Erythrocyte distribution width (RBC) [Ratio] 15.1 % High 11.5-15.0 [facility] Comment on above: Order Comment: Speci men Type: BLOOD SPECIMENOrdering Facility: [facility] Address: [address] [place] [address] Performed By: #### 5 7021-8 ####[facility] LABCLIA [id number] [address] LABCLIA [id number] [place] [address] [place] Hematocrit (Bld) [Volume fraction] 28.5 % Low 39.0-51.0 [facility] Comment on above: Order Comment: Speci men Type: BLOOD SPECIMENOrdering Facility: [facility] Address: [address] [place] [address] Performed By: #### 5 7021-8 ####[facility] LABCLIA [id number] [address] LABCLIA [id number] [place] [address] [place] Hemoglobin (Bld) [Mass/Vol] 9.1 g/dL Low 13.0-17.0 [facility] Comment on above: Order Comment: Speci men Type: BLOOD SPECIMENOrdering Facility: [facility] Address: [address] [place] [address] Performed By: #### 5 7021-8 ####[facility] LABCLIA [id number] [address] LABCLIA [id number] [place] [address] [place] Immature granulocytes (Bld) [#/Vol] 10*3/uL Normal <0.10 [facility] Comment on above: Order Comment: Speci men Type: BLOOD SPECIMENOrdering Facility: [facility] Address: [address] [place] [address] Performed By: #### 5 7021-8 ####[facility] LABCLIA [id number] [address] LABCLIA [id number] [place] [address] [place] Immature granulocytes/100 WBC (Bld) 0.3 % Normal [facility] Comment on above: Order Comment: Speci men Type: BLOOD SPECIMENOrdering Facility: [facility] Address: [address] [place] [address] Performed By: #### 5 7021-8 ####[facility] LABCLIA [id number] [address] LABCLIA [id number] [place] [address] [place] Lymphocytes (Bld) [#/Vol] 1.20 10*3/uL Normal 1.00-4.00 [facility] Comment on above: Order Comment: Speci men Type: BLOOD SPECIMENOrdering Facility: [facility] Address: [address] [place] [address] Performed By: #### 5 7021-8 ####[facility] LABCLIA [id number] [address] LABCLIA [id number] [place] [address] [place] Lymphocytes/100 WBC (Bld) 39.9 % Normal [facility] Comment on above: Order Comment: Speci men Type: BLOOD SPECIMENOrdering Facility: [facility] Address: [address] [place] [address] Performed By: #### 5 7021-8 ####[facility] LABCLIA [id number] [address] LABCLIA [id number] [place] [address] [place] MCH (RBC) [Entitic mass] 35.3 pg High 26.0-34.0 [facility] Comment on above: Order Comment: Speci men Type: BLOOD SPECIMENOrdering Facility: [facility] Address: [address] [place] [address] Performed By: #### 5 7021-8 ####[facility] LABCLIA [id number] [address] LABCLIA [id number] [place] [address] [place] MCHC (RBC) [Mass/Vol] 31.9 g/dL Normal 30.5-36.0 [facility] Comment on above: Order Comment: Speci men Type: BLOOD SPECIMENOrdering Facility: [facility] Address: [address] [place] [address] Performed By: #### 5 7021-8 ####[facility] LABCLIA [id number] [address] LABCLIA [id number] [place] [address] [place] MCV (RBC) [Entitic vol] 110.5 fL High 80.0-100.0 [facility] Comment on above: Order Comment: Speci men Type: BLOOD SPECIMENOrdering Facility: [facility] Address: [address] [place] [address] Performed By: #### 5 7021-8 ####[facility] LABCLIA [id number] [address] LABCLIA [id number] [place] [address] [place] Monocytes (Bld) [#/Vol] 0.42 10*3/uL Normal <0.87 [facility] Comment on above: Order Comment: Speci men Type: BLOOD SPECIMENOrdering Facility: [facility] Address: [address] [place] [address] Performed By: #### 5 7021-8 ####[facility] LABCLIA [id number] [place] [id number] LABCLIA [id number] [place] [address] [place] Monocytes/100 WBC (Bld) 14.0 % Normal [facility] Comment on above: Order Comment: Speci men Type: BLOOD SPECIMENOrdering Facility: [facility] Address: [address] [place] [address] Performed By: #### 5 7021-8 ####JOSE MANUELLAALICIA [facility] LABCLIA [id number] [address] LABCLIA [id number] [place] [address] [place] Neutrophils (Bld) [#/Vol] 1.20 10*3/uL Low 1.45-7.50 [facility] Comment on above: Order Comment: Speci men Type: BLOOD SPECIMENOrdering Facility: [facility] Address: [address] [place] [address] Performed By: #### 5 7021-8 ####[facility] LABCLIA [id number] [address] LABCLIA [id number] [place] [address] [place] Neutrophils/100 WBC (Bld) 39.8 % Normal [facility] Comment on above: Order Comment: Speci men Type: BLOOD SPECIMENOrdering Facility: [facility] Address: [address] [place], [place] [address] Result Comment: Revi ewed Performed By: #### 5 7021-8 ####MILANRADHA [facility] LABCLIA [id number] [address] LABCLIA [id number] [place] [address] [place] Nucleated RBC (Bld) [#/Vol] 10*3/uL Normal <0.01 [facility] Comment on above: Order Comment: Speci men Type: BLOOD SPECIMENOrdering Facility: [facility] Address: [address] [place] [address] Performed By: #### 5 7021-8 ####MILANRADHA [facility] LABCLIA [id number] [address] LABCLIA [id number] [place] [address] [place] Nucleated RBC/100 WBC (Bld) [Ratio] 0.0 /100 WBC Normal [facility] Comment on above: Order Comment: Speci men Type: BLOOD SPECIMENOrdering Facility: [facility] Address: [address] [place] [address] Performed By: #### 5 7021-8 ####[facility] LABCLIA [id number] [address] LABCLIA [id number] [place] [address] [place] Ovalocytes LM Ql (Bld) Few Normal [facility] Comment on above: Order Comment: Speci men Type: BLOOD SPECIMENOrdering Facility: [facility] Address: [address] [place] [address] Performed By: #### 5 7021-8 ####[facility] LABCLIA [id number] [address] LABCLIA [id number] [place] [address] [place] Platelet mean volume (Bld) [Entitic vol] 9.1 fL Normal 9.0-12.7 [facility] Comment on above: Order Comment: Speci men Type: BLOOD SPECIMENOrdering Facility: [facility] Address: [address] [place] [address] Performed By: #### 5 7021-8 ####[facility] LABCLIA [id number] [address] LABCLIA [id number] [facility] [place] [address] [place] Platelets (Bld) [#/Vol] 234 10*3/uL Normal 150-400 [facility] Comment on above: Order Comment: Speci men Type: BLOOD SPECIMENOrdering Facility: [facility] Address: [address] [place] [address] Performed By: #### 5 7021-8 ####[facility] LABCLIA [id number] [address] LABCLIA [id number] [place] [address] [place] Platelets Estimate (Bld) [#/Vol] Adequate Normal [facility] Comment on above: Order Comment: Speci men Type: BLOOD SPECIMENOrdering Facility: [facility] Address: [address] [place] [address] Performed By: #### 5 7021-8 ####[facility] LABCLIA [id number] [address] LABCLIA [id number] [place] [address] [place] Polychromasia LM Ql (Bld) Slight Normal [facility] Comment on above: Order Comment: Speci men Type: BLOOD SPECIMENOrdering Facility: [facility] Address: [address] [place], [place] [address] Performed By: #### 5 7021-8 ####[facility] LABCLIA [id number] [address] LABCLIA [id number] [place] [address] [place] RBC (Bld) [#/Vol] 2.58 10*6/uL Low 4.20-6.00 [facility] Comment on above: Order Comment: Speci men Type: BLOOD SPECIMENOrdering Facility: [facility] Address: [address] [place] [address] Performed By: #### 5 7021-8 ####[facility] LABCLIA [id number] [place] [id number] LABCLIA [id number] [place] [address] [place] RED CELL MORPH Reviewed: see result s of individual morphologies Normal [facility] Comment on above: Order Comment: Speci men Type: BLOOD SPECIMENOrdering Facility: [facility] Address: [address] Performed By: #### 5 7021-8 ####[facility] LABCLIA [id number] [address] LABCLIA [id number] [place] [address] [place] WBC (Bld) [#/Vol] 3.01 10*3/uL Low 3.70-11.00 [facility] Comment on above: Order Comment: Speci men Type: BLOOD SPECIMENOrdering Facility: [facility] Address: [address] Performed By: #### 5 7021-8 ####[facility] LABCLIA [id number] [address] LABCLIA [id number] [place] [address] [place] CNNURSEon 06-06-2022 CNNURSE Normal [facility] CNOVSPon 06-06-2022 CNOVSP Normal [facility] Comprehensive metabolic 2000 panelon 06-06-2022 Albumin [Mass/Vol] 3.5 g/dL Low 3.9-4.9 [facility] Comment on above: Order Comment: Speci men Type: BLOOD SPECIMENOrdering Facility: [facility] Address: [address] Performed By: #### 2 4323-8 ####[facility] LABCLIA [id number] [place] [address] ALP [Catalytic activity/Vol] 148 U/L High 38-113 [facility] Comment on above: Order Comment: Speci men Type: BLOOD SPECIMENOrdering Facility: [facility] Address: [address] [place] [address] Performed By: #### 2 4323-8 ####[facility] LABCLIA [id number] [place] [address] ALT [Catalytic activity/Vol] 43 U/L Normal 10-54 [facility] Comment on above: Order Comment: Speci men Type: BLOOD SPECIMENOrdering Facility: [facility] Address: [address] [place] [address] Performed By: #### 2 4323-8 ####[facility] LABCLIA [id number] [place] [address] Anion gap [Moles/Vol] 8 mmol/L Low 9-18 [facility] Comment on above: Order Comment: Speci men Type: BLOOD SPECIMENOrdering Facility: [facility] Address: [address] [place] [address] Performed By: #### 2 4323-8 ####[facility] LABCLIA [id number] [place] [address] AST [Catalytic activity/Vol] 37 U/L Normal 14-40 [facility] Comment on above: Order Comment: Speci men Type: BLOOD SPECIMENOrdering Facility: [facility] Address: [address] [place] [address] Performed By: #### 2 4323-8 ####[facility] LABCLIA [id number] [place] [address] Bilirubin [Mass/Vol] 0.4 mg/dL Normal 0.2-1.3 [facility] Comment on above: Order Comment: Speci men Type: BLOOD SPECIMENOrdering Facility: [facility] Address: [address] [place] [address] Performed By: #### 2 4323-8 ####[facility] LABCLIA [id number] [place] [address] Calcium [Mass/Vol] 8.8 mg/dL Normal 8.5-10.2 [facility] Comment on above: Order Comment: Speci men Type: BLOOD SPECIMENOrdering Facility: [facility] Address: [address] [place] [address] Performed By: #### 2 4323-8 ####[facility] LABCLIA [id number] [place] [address] Chloride [Moles/Vol] 106 mmol/L High 97-105 [facility] Comment on above: Order Comment: Speci men Type: BLOOD SPECIMENOrdering Facility: [facility] Address: [address] [place] [address] Performed By: #### 2 4323-8 ####[facility] LABCLIA [id number] [place] [address] CO2 [Moles/Vol] 22 mmol/L Normal 22-30 [facility] Comment on above: Order Comment: Speci men Type: BLOOD SPECIMENOrdering Facility: [facility] Address: [address] [place] [address] Performed By: #### 2 4323-8 ####[facility] LABCLIA [id number] [place] [address] Creatinine [Mass/Vol] 0.75 mg/dL Normal 0.73-1.22 [facility] Comment on above: Order Comment: Speci men Type: BLOOD SPECIMENOrdering Facility: [facility] Address: [address] [place] [address] Performed By: #### 2 4323-8 ####[facility] LABCLIA [id number] [place] [address] ESTIMATED GLOMERULAR FILTRATION RATE 101 mL/min/1.73m??? Normal >=60 [facility] Comment on above: Order Comment: Specabiola real Type: BLOOD SPECIMENOrdering Facility: [facility] Address: [place] [id number] Result Comment: Megan mated Glomerular Filtration Rate [...] actual GFR. Performed By: #### 2 4323-8 ####[facility] LABCLIA [id number] [place] [address] Glucose [Mass/Vol] 106 mg/dL High 74-99 [facility] Comment on above: Order Comment: Frnak real Type: BLOOD SPECIMENOrdering Facility: [facility] Address: [address] [address] Result Comment: The [place] [employer] (ADA) provides guidance for cutoff [...] Standards of Medical Care in Diabetes 2016, [place] [employer]. Diabetes Care. 2016.39(Suppl 1). Performed By: #### 2 4323-8 ####[facility] LABCLIA [id number] [place] [address] Potassium [Moles/Vol] 4.6 mmol/L Normal 3.7-5.1 [facility] Comment on above: Order Comment: Frank real Type: BLOOD SPECIMENOrdering Facility: [facility] Address: [place] [address] Performed By: #### 2 4323-8 ####[facility] LABCLIA [id number] [place] [address] Protein [Mass/Vol] 6.4 g/dL Normal 6.3-8.0 [facility] Comment on above: Order Comment: Speci men Type: BLOOD SPECIMENOrdering Facility: [facility] Address: [address] [place] [address] Performed By: #### 2 4323-8 ####[facility] LABCLIA [id number] [place] [address] Sodium [Moles/Vol] 136 mmol/L Normal 136-144 [facility] Comment on above: Order Comment: Speci men Type: BLOOD SPECIMENOrdering Facility: [facility] Address: [address] [place] [address] Performed By: #### 2 4323-8 ####[facility] LABCLIA [id number] [place] [address] Urea nitrogen [Mass/Vol] 20 mg/dL Normal 9-24 [facility] Comment on above: Order Comment: Speci men Type: BLOOD SPECIMENOrdering Facility: [facility] Address: [address] [place] [address] Performed By: #### 2 4323-8 ####[facility] LABCLIA [id number] [place] [address] Ferritin [facility] 2021 Ferritin [Mass/Vol] 427.0 ng/mL Normal 30.3-565.7 [facility] Comment on above: Order Comment: Speci men Type: BLOOD SPECIMENOrdering Facility: [facility] Address: [address] [place] [address] Performed By: #### 5 0190-8, 2132-9, 2276-4, 2284-8 ####[facility] LABCLIA [id number] [place] [address] [place] Folate SerPl-mCncon 06-06-20 Folate [Mass/Vol] 6.5 ng/mL Normal >4.7 [facility] Comment on above: Order Comment: Speci men Type: BLOOD SPECIMENOrdering Facility: [facility] Address: [address] [place] [address] Performed By: #### 5 0190-8, 9, 4, 8 ####[facility] LABCLIA [id number] [place] [address] [place] Iron and Iron binding capaci ty panelon 06-06-2022 Iron [Mass/Vol] 39 ug/dL Low 41-186 [facility] Comment on above: Order Comment: Speci men Type: BLOOD SPECIMENOrdering Facility: [facility] Address: [address] [place] [address] Performed By: #### 5 0190-8, 9, 2275-09, 8 ####[facility] LABIA [id number] [address] [place] Iron binding capacity [Mass/Vol] 228 ug/dL Low 232-386 [facility] Comment on above: Order Comment: Speci men Type: BLOOD SPECIMENOrdering Facility: [facility] Address: [address] [place] [address] Performed By: #### 5 0190-8, 9, 2275-09, 8 ####[facility] LABCLIA [id number] [place] [address] [place] Iron/TIBC [Molar ratio] 17.1 % Normal 15.0-57.0 [facility] Comment on above: Order Comment: Speci men Type: BLOOD SPECIMENOrdering Facility: [facility] Address: [address] [place] [address] Performed By: #### 5 0190-8, 9, 2275-09, 8 ####[facility] LABCLIA [id number] [address] [address] [place] Vit B12 [facility] 022 Cobalamin (Vitamin B12) [Mass/Vol] 517 pg/mL Normal 232-1245 [facility] Comment on above: Order Comment: Speci men Type: BLOOD SPECIMENOrdering Facility: [facility] Address: [address] Performed By: #### 5 0190-8, 2132-9, 6-4, 8 ####[facility] LABCLIA [id number] [place] [id number] [place] XR LSPINE MIN [...] REBA REID Date: 2022-05-13 07:55 Normal [facility] CBC W Auto Differential pane l (Bld)on 05-08-2022 Basophils (Bld) [#/Vol] 10*3/uL Normal <0.11 [facility] Comment on above: Order Comment: Speci men Type: BLOOD SPECIMENOrdering Facility: [facility] Address: [address] [place] [id number] Performed By: #### 5 7021-8, 85133-9 ####[facility] LABCLIA [id number] [place] [address] Basophils/100 WBC (Bld) 0.3 % Normal [facility] Comment on above: Order Comment: Speci men Type: BLOOD SPECIMENOrdering Facility: [facility] Address: [address] [place] [address] Performed By: #### 5 7021-8, 06371-6 ####[facility] LABCLIA [id number] [place] [address] Differential cell count method Nom (Bld) Auto Normal [facility] Comment on above: Order Comment: Speci men Type: BLOOD SPECIMENOrdering Facility: [facility] Address: [address] [place] [address] Performed By: #### 5 7021-8, 24698-6 ####[facility] LABCLIA [id number] [place] [address] Eosinophils (Bld) [#/Vol] 0.13 10*3/uL Normal <0.46 [facility] Comment on above: Order Comment: Speci men Type: BLOOD SPECIMENOrdering Facility: [facility] Address: [address] [place] [address] Performed By: #### 5 7021-8, 66012-7 ####[facility] LABCLIA [id number] [place] [address] Eosinophils/100 WBC (Bld) 3.9 % Normal [facility] Comment on above: Order Comment: Speci men Type: BLOOD SPECIMENOrdering Facility: [facility] Address: [address] [place] [address] Performed By: #### 5 7021-8, 29605-0 ####[facility] LABCLIA [id number] [place] [address] Erythrocyte distribution width (RBC) [Ratio] 15.9 % High 11.5-15.0 [facility] Comment on above: Order Comment: Speci men Type: BLOOD SPECIMENOrdering Facility: [facility] Address: [address] [place] [address] Performed By: #### 5 7021-8, 45661-5 ####[facility] LABCLIA [id number] [place] [address] Hematocrit (Bld) [Volume fraction] 30.2 % Low 39.0-51.0 [facility] Comment on above: Order Comment: Speci men Type: BLOOD SPECIMENOrdering Facility: [facility] Address: [address] [place] [address] Performed By: #### 5 7021-8, 91240-8 ####MILANRADHA [facility] LABIA [id number] [place] [address] Hemoglobin (Bld) [Mass/Vol] 9.4 g/dL Low 13.0-17.0 [facility] Comment on above: Order Comment: Speci men Type: BLOOD SPECIMENOrdering Facility: [facility] Address: [address] [place] [address] Performed By: #### 5 7021-8, 52822-7 ####JEAN [facility] LABIA [id number] [place] [address] Immature granulocytes (Bld) [#/Vol] 10*3/uL Normal <0.10 [facility] Comment on above: Order Comment: Speci men Type: BLOOD SPECIMENOrdering Facility: [facility] Address: [address] [place] [address] Performed By: #### 5 7021-8, 87721-2 ####[facility] LABIA [id number] [place] [address] Immature granulocytes/100 WBC (Bld) 0.6 % Normal [facility] Comment on above: Order Comment: Speci men Type: BLOOD SPECIMENOrdering Facility: [facility] Address: [address] [place] [address] Performed By: #### 5 7021-8, 02042-5 ####[facility] LABIA [id number] [place] [address] Lymphocytes (Bld) [#/Vol] 1.29 10*3/uL Normal 1.00-4.00 [facility] Comment on above: Order Comment: Speci men Type: BLOOD SPECIMENOrdering Facility: [facility] Address: [address] [place] [address] Performed By: #### 5 7021-8, 70261-2 ####[facility] LABCLIA [id number] [place] [address] Lymphocytes/100 WBC (Bld) 38.5 % Normal [facility] Comment on above: Order Comment: Speci men Type: BLOOD SPECIMENOrdering Facility: [facility] Address: [address] [place] [address] Performed By: #### 5 7021-8, 37506-6 ####[facility] LABIA [id number] [place] [address] MCH (RBC) [Entitic mass] 33.2 pg Normal 26.0-34.0 [facility] Comment on above: Order Comment: Speci men Type: BLOOD SPECIMENOrdering Facility: [facility] Address: [address] [place] [address] Performed By: #### 5 7021-8, 39381-2 ####[facility] LABIA [id number] [place] [address] MCHC (RBC) [Mass/Vol] 31.1 g/dL Normal 30.5-36.0 [facility] Comment on above: Order Comment: Speci men Type: BLOOD SPECIMENOrdering Facility: [facility] Address: [address] [place] [address] Performed By: #### 5 7021-8, 93471-6 ####[facility] LABIA [id number] [place] [address] MCV (RBC) [Entitic vol] 106.7 fL High 80.0-100.0 [facility] Comment on above: Order Comment: Speci men Type: BLOOD SPECIMENOrdering Facility: [facility] Address: [address] [place] [address] Performed By: #### 5 7021-8, 92679-6 ####[facility] LABCLIA [id number] [place] [address] Monocytes (Bld) [#/Vol] 0.41 10*3/uL Normal <0.87 [facility] Comment on above: Order Comment: Speci men Type: BLOOD SPECIMENOrdering Facility: [facility] Address: [address] [place], [place] [address] Performed By: #### 5 7021-8, 26643-0 ####[facility] LABCLIA [id number] [place] [address] Monocytes/100 WBC (Bld) 12.2 % Normal [facility] Comment on above: Order Comment: Speci men Type: BLOOD SPECIMENOrdering Facility: [facility] Address: [address] [place] [address] Performed By: #### 5 7021-8, 22177-0 ####[facility] LABCLIA [id number] [place] [address] Neutrophils (Bld) [#/Vol] 1.49 10*3/uL Normal 1.45-7.50 [facility] Comment on above: Order Comment: Speci men Type: BLOOD SPECIMENOrdering Facility: [facility] Address: [address] [place] [address] Performed By: #### 5 7021-8, 97758-8 ####[facility] LABCLIA [id number] [place] [address] Neutrophils/100 WBC (Bld) 44.5 % Normal [facility] Comment on above: Order Comment: Speci men Type: BLOOD SPECIMENOrdering Facility: [facility] Address: [address] [place], [place] [address] Performed By: #### 5 7021-8, 30897-7 ####[facility] LABCLIA [id number] [place] [address] Nucleated RBC (Bld) [#/Vol] 10*3/uL Normal <0.01 [facility] Comment on above: Order Comment: Speci men Type: BLOOD SPECIMENOrdering Facility: [facility] Address: [address] [place] [address] Performed By: #### 5 7021-8, 36182-5 ####[facility] LABCLIA [id number] [place] [address] Nucleated RBC/100 WBC (Bld) [Ratio] 0.0 /100 WBC Normal [facility] Comment on above: Order Comment: Speci men Type: BLOOD SPECIMENOrdering Facility: [facility] Address: [address] [place] [address] Performed By: #### 5 7021-8, 28303-6 ####[facility] LABIA [id number] [place] [address] Platelet mean volume (Bld) [Entitic vol] 8.7 fL Low 9.0-12.7 [facility] Comment on above: Order Comment: Speci men Type: BLOOD SPECIMENOrdering Facility: [facility] Address: [address] [place] [address] Performed By: #### 5 7021-8, 37255-7 ####[facility] LABIA [id number] [place] [address] Platelets (Bld) [#/Vol] 238 10*3/uL Normal 150-400 [facility] Comment on above: Order Comment: Speci men Type: BLOOD SPECIMENOrdering Facility: [facility] Address: [address] [place] [address] Performed By: #### 5 7021-8, 42860-8 ####[facility] LABIA [id number] [place] [address] RBC (Bld) [#/Vol] 2.83 10*6/uL Low 4.20-6.00 [facility] Comment on above: Order Comment: Speci men Type: BLOOD SPECIMENOrdering Facility: [facility] Address: [address] [place] [address] Performed By: #### 5 7021-8, 02819-5 ####[facility] LABCLIA [id number] [place] [address] WBC (Bld) [#/Vol] 3.35 10*3/uL Low 3.70-11.00 [facility] Comment on above: Order Comment: Speci men Type: BLOOD SPECIMENOrdering Facility: [facility] Address: [address] [place] [address] Performed By: #### 5 7021-8, 75150-5 ####[facility] LABCLIA [id number] [place] [address] CNNURSEon 05-08-2022 CNNURSE Normal [facility] CNOVSPon 05-08-2022 CNOVSP Normal [facility] Comprehensive metabolic 2000 panelon 05-08-2022 Albumin [Mass/Vol] 3.7 g/dL Low 3.9-4.9 [facility] Comment on above: Order Comment: Speci men Type: BLOOD SPECIMENOrdering Facility: [facility] Address: [address] [place] [address] Performed By: #### 2 532-0, 10880-5 ####[facility] LABCLIA [id number] [place] [address] ALP [Catalytic activity/Vol] 154 U/L High 38-113 [facility] Comment on above: Order Comment: Speci men Type: BLOOD SPECIMENOrdering Facility: [facility] Address: [address] [place] [address] Performed By: #### 2 532-0, 81195-5 ####[facility] LABCLIA [id number] [place] [address] ALT [Catalytic activity/Vol] 32 U/L Normal 10-54 [facility] Comment on above: Order Comment: Speci men Type: BLOOD SPECIMENOrdering Facility: [facility] Address: [address] [address] Performed By: #### 2 532-0, ####[facility] LABCLIA [id number] [place] [address] Anion gap [Moles/Vol] 9 mmol/L Normal 9-18 [facility] Comment on above: Order Comment: Speci men Type: BLOOD SPECIMENOrdering Facility: [facility] Address: [address] [place] [address] Performed By: #### 2 532-0, ####[facility] LABCLIA [id number] [place] [address] AST [Catalytic activity/Vol] 30 U/L Normal 14-40 [facility] Comment on above: Order Comment: Speci men Type: BLOOD SPECIMENOrdering Facility: [facility] Address: [address] [place] [address] Performed By: #### 2 532-0, ####[facility] LABCLIA [id number] [place] [address] Bilirubin [Mass/Vol] 0.4 mg/dL Normal 0.2-1.3 [facility] Comment on above: Order Comment: Speci men Type: BLOOD SPECIMENOrdering Facility: [facility] Address: [address] [place] [address] Performed By: #### 2 532-0, ####[facility] LABCLIA [id number] [place] [address] Calcium [Mass/Vol] 8.9 mg/dL Normal 8.5-10.2 [facility] Comment on above: Order Comment: Speci men Type: BLOOD SPECIMENOrdering Facility: [facility] Address: [address] [place] [address] Performed By: #### 2 532-0, ####[facility] LABCLIA [id number] [place] [address] Chloride [Moles/Vol] 110 mmol/L High 97-105 [facility] Comment on above: Order Comment: Speci men Type: BLOOD SPECIMENOrdering Facility: [facility] Address: [address] [place] [address] Performed By: #### 2 532-0, 95111-8 ####[facility] LABCLIA [id number] [place] [address] CO2 [Moles/Vol] 17 mmol/L Low 22-30 [facility] Comment on above: Order Comment: Speci men Type: BLOOD SPECIMENOrdering Facility: [facility] Address: [address] [place] [address] Performed By: #### 2 532-0, 83068-8 ####[facility] LABCLIA [id number] [place] [address] Creatinine [Mass/Vol] 0.76 mg/dL Normal 0.73-1.22 [facility] Comment on above: Order Comment: Speci men Type: BLOOD SPECIMENOrdering Facility: [facility] Address: [address] [place] [address] Performed By: #### 2 532-0, 37482-6 ####[facility] LABIA [id number] [place] [address] ESTIMATED GLOMERULAR FILTRATION RATE 100 mL/min/1.73m??? Normal >=60 [facility] Comment on above: Order Comment: Speci men Type: BLOOD SPECIMENOrdering Facility: [facility] Address: [address] [place] [address] Result Comment: Megan mated Glomerular Filtration Rate [...] actual GFR. Performed By: #### 2 532-0, 28165-8 ####[facility] LABIA [id number] [place] [address] Glucose [Mass/Vol] 96 mg/dL Normal 74-99 [facility] Comment on above: Order Comment: Speci men Type: BLOOD SPECIMENOrdering Facility: [facility] Address: [address] [place] [address] Result Comment: The [place] [employer] (ADA) provides guidance for cutoff [...] Standards of Medical Care in Diabetes 2016, [place] [employer]. Diabetes Care. 2016.39(Suppl 1). Performed By: #### 2 532-0, 58623-3 ####[facility] LABIA [id number] [place] [address] Potassium [Moles/Vol] 4.1 mmol/L Normal 3.7-5.1 [facility] Comment on above: Order Comment: Speci men Type: BLOOD SPECIMENOrdering Facility: [facility] Address: [address] [id number] Performed By: #### 2 532-0, 01740-5 ####[facility] LABIA [id number] [place] [address] Protein [Mass/Vol] 6.8 g/dL Normal 6.3-8.0 [facility] Comment on above: Order Comment: Speci men Type: BLOOD SPECIMENOrdering Facility: [facility] Address: [address] [address] Performed By: #### 2 532-0, 82066-5 ####[facility] LABCLIA [id number] [place] [address] Sodium [Moles/Vol] 136 mmol/L Normal 136-144 [facility] Comment on above: Order Comment: Speci men Type: BLOOD SPECIMENOrdering Facility: [facility] Address: [address] [address] Performed By: #### 2 532-0, 86342-1 ####[facility] LABCLIA [id number] [place] [address] Urea nitrogen [Mass/Vol] 30 mg/dL High 9-24 [facility] Comment on above: Order Comment: Speci men Type: BLOOD SPECIMENOrdering Facility: [facility] Address: [address] [place] [address] Performed By: #### 2 532-0, 49450-1 ####[facility] LABCLIA [id number] [place] [address] Ferritin SerPl-mCncon 2021 Ferritin [Mass/Vol] 644.0 ng/mL High 30.3-565.7 [facility] Comment on above: Order Comment: Speci men Type: BLOOD SPECIMENOrdering Facility: [facility] Address: [address] [place] [address] Performed By: #### 4 542-7, 53977-6, 2276-4 ####[facility] LABCLIA [id number] [facility] [id number] [address] [place] Folate SerPl-mCncon 05-08- 22 Folate [Mass/Vol] 7.3 ng/mL Normal >4.7 [facility] Comment on above: Order Comment: Speci men Type: BLOOD SPECIMENOrdering Facility: [facility] Address: [address] [place] [address] Performed By: #### 2 132-9, 2284-8 ####[facility] LABCLIA [id number] [place] [address] [place] Haptoglob SerPl-mCncon 05-08 Haptoglobin [Mass/Vol] 122 mg/dL Normal 31-238 [facility] Comment on above: Order Comment: Speci men Type: BLOOD SPECIMENOrdering Facility: [facility] Address: [address] [place] [address] Performed By: #### 4 542-7, 30173-3, 6-4 ####[facility] LABCLIA [id number] [place] [address] [place] Iron and Iron binding capaci ty panel 05-08-2022 Iron [Mass/Vol] 48 ug/dL Normal 41-186 [facility] Comment on above: Order Comment: Speci men Type: BLOOD SPECIMENOrdering Facility: [facility] Address: [address] [place], [place] [id number] Performed By: #### 4 542-7, 28047-6, 2275-4 ####[facility] LABIA [id number] [place] [address] [place] Iron binding capacity [Mass/Vol] 217 ug/dL Low 232-386 [facility] Comment on above: Order Comment: Speci men Type: BLOOD SPECIMENOrdering Facility: [facility] Address: [address] [place], [place] [address] Performed By: #### 4 542-7, 20767-7, 2275-4 ####[facility] LABCLIA [id number] [place] [address] [place] Iron/TIBC [Molar ratio] 22.1 % Normal 15.0-57.0 [facility] Comment on above: Order Comment: Speci men Type: BLOOD SPECIMENOrdering Facility: [facility] Address: [address] [place], [place] [address] Performed By: #### 4 542-7, 63545-5, 6-4 ####[facility] LABCLIA [id number] [facility] [id number] [id number] [place] [facility] LDH SerPl-cCncon 05-08-2022 LDH [Catalytic activity/Vol] 138 U/L Normal 135-225 [facility] Comment on above: Order Comment: Speci men Type: BLOOD SPECIMENOrdering Facility: [facility] Address: [address] [place] [address] Performed By: #### 2 532-0, 95174-8 ####[facility] LABCLIA [id number] [place] [address] Retics #on 05-08-2022 Reticulocytes (Bld) [#/Vol] 0.75383 10*3/uL Normal 0.018-0.10 0 [facility] Comment on above: Order Comment: Speci men Type: BLOOD SPECIMENOrdering Facility: [facility] Address: [address] [place] [address] Performed By: #### 5 7021-8, 73363-8 ####[facility] LABIA [id number] [place] [address] Reticulocytes (Bld) [#/Vol]o n 05-08-2022 Reticulocytes/100 RBC (Bld) 2.2 % High 0.4-2.0 [facility] Comment on above: Order Comment: Speci men Type: BLOOD SPECIMENOrdering Facility: [facility] Address: [address] [place] [address] Performed By: #### 5 7021-8, 23573-4 ####[facility] LABIA [id number] [place] [address] Vit B12 SerPl-mCncon 022 Cobalamin (Vitamin B12) [Mass/Vol] 574 pg/mL Normal 232-1245 [facility] Comment on above: Order Comment: Speci men Type: BLOOD SPECIMENOrdering Facility: [facility] Address: [address] [place] [address] Performed By: #### 2 132-9, 2284-8 ####[facility] LABCLIA [id number] LASHANDA MORRIS [id number] [address] [place] LIPID PROFILEon 02-04-2022 CHOL-HDL RATIO NORM SEE BELOW Normal [facility] Comment on above: Result Comment: 3.3 - 4.4 LOW RISK 4.4 - 7.1 AVERAGE RISK 7.1 - 11.0 MODERATE RISK >11.0 HIGH RISK Performed By: #### L IPID, CMP #### [facility] [address] [address] [address] Mel Barrientos Cholesterol [Mass/Vol] 100 mg/dL Normal <=200 [facility] Comment on above: Performed By: #### L IPID, CMP #### [facility] [address] [address] [address] Mel Barrientos Cholesterol in HDL [Mass/Vol] 20 mg/dL Critically low 40-60 [facility] Comment on above: Performed By: #### L IPID, CMP #### [facility] [address] [address] [address] Mel Barrientos Cholesterol in LDL [Mass/Vol] 63.6 mg/dL Normal [facility] Comment on above: Performed By: #### L IPID, CMP #### [facility] [address] [address] [address] Mel Barrientos Cholesterol.total/Cho lesterol in HDL [Mass ratio] 5.0 {ratio} Normal [facility] Comment on above: Performed By: #### L IPID, CMP #### [facility] [address] [address] [address] Mel Barrientos HDL NORMAL > or = 60 mg/dl - LO W CARDIOVASCULAR RISK <40 mg/dl - HIGH CARDIOVASCULAR RISK Normal [facility] Comment on above: Performed By: #### L IPID, CMP #### [facility] [address] [address] [address] Mel Barrientos LDL CALC NORMAL SEE BELOW Normal [facility] Comment on above: Result Comment: <100 mg/dl OPTIMAL 100 - 129 mg/dl NEAR OR ABOVE OPTIMAL 130 - 159 mg/dl BORDERLINE HIGH 160 - 189 mg/dl HIGH >190 mg/dl VERY HIGH Performed By: #### L IPID, CMP #### [facility] [address] [place] [address] Dr. Mel Barrientos Triglyceride [Mass/Vol] 82 mg/dL Normal <=150 [facility] Comment on above: Performed By: #### L IPID, CMP #### [facility] [address] [place] [address] Dr. Mel Barrientos VLDL CALC 16.4 mg/dL Normal [facility] Comment on above: Performed By: #### L IPID, CMP #### [facility] [address] [place] [address] Dr. Mel Barrientos PROF CHEM 8 (BAS METB)on Anion gap [Moles/Vol] 15.8 mmol/L Normal [facility] Comment on above: Performed By: #### L IPID, CMP #### [facility] [address] [place] [address] Dr. Mel Barrientos Calcium [Mass/Vol] 8.5 mg/dL Normal 8.5-10.1 [facility] Comment on above: Performed By: #### L IPID, CMP #### [facility] [address] [place] [address] Dr. Mel Barrientos Chloride [Moles/Vol] 109 mmol/L Critically high 98-107 [facility] Comment on above: Performed By: #### L IPID, CMP #### [facility] [address] [place] [address] Dr. Mel Barrientos CO2 [Moles/Vol] 17.7 mmol/L Critically low 21.0-32.0 [facility] Comment on above: Performed By: #### L IPID, CMP #### [facility] [address] [place] [address] Dr. Mel Barrientos Creatinine [Mass/Vol] 0.79 mg/dL Normal 0.70-1.30 [facility] Comment on above: Performed By: #### L IPID, CMP #### [facility] [address] [address] [address] Mel Barrientos EGFR-AF MICRONESIAN >60 Normal >=60 [facility] Comment on above: Performed By: #### L IPID, CMP #### [facility] [address] [address] [address] Mel Barrientos EGFR-NON AF MICRONESIAN >60 Normal >=60 [facility] Comment on above: Performed By: #### L IPID, CMP #### [facility] [address] [address] [address] Mel Barrientos Glucose [Mass/Vol] 116 mg/dL Critically high 74-106 [facility] Comment on above: Performed By: #### L IPID, CMP #### [facility] [address] [place] [address] Dr. Mel Barrientos Potassium [Moles/Vol] 4.5 mmol/L Normal 3.5-5.1 [facility] Comment on above: Performed By: #### L IPID, CMP #### [facility] [address] [place] [address] Dr. Mel Barrientos Sodium [Moles/Vol] 138 mmol/L Normal 136-145 [facility] Comment on above: Performed By: #### L IPID, CMP #### [facility] [address] [place] [address] Dr. Mel Barrientos Urea nitrogen [Mass/Vol] 29.0 mg/dL Critically high 7.0-18.0 [facility] Comment on above: Performed By: #### L IPID, CMP #### [facility] [address] [place] [address] Dr. Mle Barrientos Urea nitrogen/Creatinine [Mass ratio] 36.7 mg/mg Normal [facility] Comment on above: Performed By: #### L IPID, CMP #### [facility] [address] [place] [address] Dr. Mel Barrientos SGOTomarisa 02-04-2022 AST [Catalytic activity/Vol] 35 U/L Normal 15-37 [facility] Comment on above: Performed By: #### B MP, AST, ALT, LIPID #### [facility] [address] [place], [place] [address] Dr. Mel Barrientos [facility] 02-04-2022 ALT [Catalytic activity/Vol] 64 U/L Critically high 16-63 [facility] Comment on above: Performed By: #### L IPID, CMP #### [facility] [address] [place], [place] [address] Dr. Mel Barrientos Office Visit (Cardiology)on 01-09-2022 [...] Aminotransferase, Serum; Status:Active - Retrospective Authorization; Requested for:[id number]; AST; Status:Active - Retrospective Authorization; Requested for:[id number]; Basic Metabolic Panel; Status:Active - Retrospective Authorization; Requested for:[id number]; Lipid Panel; Status:Active - Retrospective Authorization; Requested for:[id number]; SocHx: Former smoker Tobacco Use Screening; Status:Complete; Done: [id number] Patient Instructions By signing my name below, I, Gill Hart LPN, Scribe, attest that this documentation has been prepared under the direction and in the presence of Dr. Irving Abreu DO. All medical record entries made by the Gabbyibderrick were at my direction and personally dictated [...] of 40%. He is status post anterior DE, with PCI of the LAD in 2010. [...] Oral TabletTAKE 1 TABLET AT BEDTIME. Creon [id number] UNIT Oral Capsule Delayed Release Particles1 tablet [...] negative for complaint. Vitals Vital Signs Recorded: [id number] 11:21AM Heart Rate80, R Radial Qgjpqlvw542, RUE Ddjlsugsf84, RUE Height5 ft 8 in Yvujjg028 lb BMI Czfzuldaki80.9 kg/m2 BSA Calculated1.78 Tobacco Useb) No PHQ-2 [...] Neck: n (more content not included)... Normal [facility] VITAMIN B12on 11-26-2021 Cobalamin (Vitamin B12) [Mass/Vol] 609.0 pg/mL Normal 193.0-986. 0 [facility] Comment on above: Performed By: #### P T, PTT #### [facility] [address] [place] [address] Dr. Mel Barrientos CBC AUTO DIFFon 11-12-2021 BASO # 0.0 103/ul Normal 0.0-0.1 [facility] Comment on above: Performed By: #### C BC #### [facility] [address] [place] [address] Dr. Mel Barrientos Basophils/100 WBC (Bld) 0.4 % Normal 0.2-2.0 [facility] Comment on above: Performed By: #### C BC #### [facility] [address] [place] [address] Dr. Mel Barrientos EO # 0.1 103/ul Normal 0.0-0.7 [facility] Comment on above: Performed By: #### C BC #### [facility] [address] [place] [address] Dr. eMl Barrientos Eosinophils/100 WBC (Bld) 1.6 % Normal 0.9-7.0 [facility] Comment on above: Performed By: #### C BC #### [facility] [address] [place] [address] Dr. Mel Barrientos Erythrocyte distribution width (RBC) [Ratio] 14.4 % Normal 11.0-15.0 [facility] Comment on above: Performed By: #### C BC #### [facility] [address] [place] [address] Dr. Mel Barrientos Hematocrit (Bld) [Volume fraction] 38.1 % Critically low 42.0-54.0 [facility] Comment on above: Performed By: #### C BC #### [facility] [address] [place] [address] Dr. Mel aBrrientos Hemoglobin (Bld) [Mass/Vol] 12.5 g/dL Critically low 14.0-18.0 [facility] Comment on above: Performed By: #### C BC #### [facility] [address] [place] [address] Dr. Mel Barrientos IG # 0.02 10e3/ul Normal 0.00-0.03 [facility] Comment on above: Performed By: #### C BC #### [facility] [address] [place] [address] Dr. Mel Barrientos IG % 0.4 % Normal 0.0-0.5 [facility] Comment on above: Performed By: #### C BC #### [facility] [address] [place] [address] Dr. Mel Barrientos LYMPH # 2.2 103/ul Normal 1.2-3.8 [facility] Comment on above: Performed By: #### C BC #### [facility] [address] [place] [address] Dr. Mel Barrientos Lymphocytes/100 WBC (Bld) 43.2 % Normal 20.5-60.0 [facility] Comment on above: Performed By: #### C BC #### [facility] [address] [place] [address] Dr. Mel Barrientos MANUAL DIFF REQ NO Normal [facility] Comment on above: Performed By: #### C BC #### [facility] [address] [place] [address] Dr. Mel Barrientos MCH (RBC) [Entitic mass] 35.1 pg Critically high 25.9-34.0 [facility] Comment on above: Performed By: #### C BC #### [facility] [address] [place] [address] Dr. Mel Barrientos MCHC (RBC) [Mass/Vol] 32.8 g/dL Normal 29.9-35.2 [facility] Comment on above: Performed By: #### C BC #### [facility] [address] [place] [address] Dr. Mel Barrientos MCV (RBC) [Entitic vol] 107.0 fL Critically high 80.0-94.0 [facility] Comment on above: Result Comment: MACR OCYTOSIS CONFIRMED ON PERIPHERAL SMEAR Performed By: #### C BC #### [facility] [address] [place] [address] Dr. Mel Barrientos MONO # 0.5 103/ul Normal 0.3-0.8 [facility] Comment on above: Performed By: #### C BC #### [facility] [address] [place] [address] Dr. Mel Barrientos Monocytes/100 WBC (Bld) 9.4 % Normal 1.7-12.0 [facility] Comment on above: Performed By: #### C BC #### [facility] [address] [place] [address] Dr. Mel Barrientos NEUT # 2.3 103/ul Normal 1.4-6.5 [facility] Comment on above: Performed By: #### C BC #### [facility] [address] [place] [address] Dr. Mel Barrientos Neutrophils/100 WBC (Bld) 45.0 % Normal 43.0-75.0 [facility] Comment on above: Performed By: #### C BC #### [facility] [address] [place] [address] Dr. Mel Barrientos Platelet mean volume (Bld) [Entitic vol] 9.3 fL Critically low 9.5-13.5 [facility] Comment on above: Performed By: #### C BC #### [facility] [address] [place] [address] Dr. Mel Barrientos PLT 307 103/ul Normal 150-450 [facility] Comment on above: Performed By: #### C BC #### [facility] [address] [place] [address] Dr. Mel Barrientos RBC 3.56 106/ul Critically low 4.70-6.10 [facility] Comment on above: Performed By: #### C BC #### [facility] [address] [place] [address] Dr. Mel Barrientos WBC 5.1 103/ul Normal 4.0-11.0 [facility] Comment on above: Performed By: #### C BC #### [facility] [address] [place] [address] Dr. Mel Barrientos PROF 14(COMP METB)on 022 Albumin [Mass/Vol] 2.3 g/dL Critically low 3.4-5.0 [facility] Comment on above: Performed By: #### L IPID, CMP #### [facility] [address] [place] [address] Dr. Mel Barrientos Albumin/Globulin [Mass ratio] 0.6 {ratio} Normal [facility] Comment on above: Performed By: #### L IPID, CMP #### [facility] [address] [place] [address] Dr. Mel Barrientos ALP [Catalytic activity/Vol] 189 U/L Critically high 46-116 [facility] Comment on above: Performed By: #### L IPID, CMP #### [facility] [address] [place] [address] Dr. Mel Barrientos ALT [Catalytic activity/Vol] 86 U/L Critically high 16-63 [facility] Comment on above: Performed By: #### L IPID, CMP #### [facility] [address] [address] [address] Mel Barrientos Anion gap [Moles/Vol] 15.4 mmol/L Normal [facility] Comment on above: Performed By: #### L IPID, CMP #### [facility] [address] [address] [address] Mel Barrientos AST [Catalytic activity/Vol] 67 U/L Critically high 15-37 [facility] Comment on above: Performed By: #### L IPID, CMP #### [facility] [address] [address] [address] Mel Barrientos Bilirubin [Mass/Vol] 0.4 mg/dL Normal 0.2-1.0 [facility] Comment on above: Performed By: #### L IPID, CMP #### [facility] [address] [place] [address] Dr. Mel Barrientos Calcium [Mass/Vol] 7.7 mg/dL Critically low 8.5-10.1 [facility] Comment on above: Performed By: #### L IPID, CMP #### [facility] [address] [place] [address] Dr. Mel Barrientos Chloride [Moles/Vol] 106 mmol/L Normal 98-107 [facility] Comment on above: Performed By: #### L IPID, CMP #### [facility] [address] [place] [address] Dr. Mel Barrientos CO2 [Moles/Vol] 17.7 mmol/L Critically low 21.0-32.0 [facility] Comment on above: Performed By: #### L IPID, CMP #### [facility] [address] [address] [address] Mel Barrientos Creatinine [Mass/Vol] 0.91 mg/dL Normal 0.70-1.30 [facility] Comment on above: Performed By: #### L IPID, CMP #### [facility] [address] [address] [address] Mel Barrientos EGFR-AF MICRONESIAN >60 Normal >=60 [facility] Comment on above: Performed By: #### L IPID, CMP #### [facility] [address] [address] [address] Mel Barrientos EGFR-NON AF MICRONESIAN >60 Normal >=60 [facility] Comment on above: Performed By: #### L IPID, CMP #### [facility] [address] [address] [address] Mel Barrientos Globulin (S) [Mass/Vol] 3.8 g/dL Normal [facility] Comment on above: Performed By: #### L IPID, CMP #### [facility] [address] [address] [address] Mel Barrientos Glucose [Mass/Vol] 77 mg/dL Normal 74-106 [facility] Comment on above: Performed By: #### L IPID, CMP #### [facility] [address] [place] [address] Dr. Mel Barrientos Potassium [Moles/Vol] 4.1 mmol/L Normal 3.5-5.1 [facility] Comment on above: Performed By: #### L IPID, CMP #### [facility] [address] [address] [address] Mel Barrientos Protein [Mass/Vol] 6.1 g/dL Critically low 6.4-8.2 [facility] [facility] Comment on above: Performed By: #### L IPID, CMP #### [facility] [address] [address] [address] Mel Barrientos Sodium [Moles/Vol] 135 mmol/L Critically low 136-145 [facility] Comment on above: Performed By: #### L IPID, CMP #### [facility] [address] [address] [address] Mel Barrientos Urea nitrogen [Mass/Vol] 25.0 mg/dL Critically high 7.0-18.0 [facility] Comment on above: Performed By: #### L IPID, CMP #### [facility] [address] [address] [address] Mel Barrientos Urea nitrogen/Creatinine [Mass ratio] 27.5 mg/mg Normal [facility] Comment on above: Performed By: #### L IPID, CMP #### [facility] [address] [address] [address] Mel Barrientos GLYCOHEMOGLOBIN A1Con 2021 ADA RECOMMENDATION ADA THERAPEUTIC TARG ET 6.0 - 7.0 ACTION SUGGESTED > 7.[address] [facility] Comment on above: Performed By: #### L IPID, CMP #### [facility] [address] [address] [address] Mel Barrientos Glucose [Mass/Vol] 100 mg/dL Normal [facility] Comment on above: Performed By: #### L IPID, CMP #### [facility] [address] [place] [address] Dr. Mel Barrientos HbA1c (Bld) [Mass fraction] 5.1 % Normal <=6.0 [facility] Comment on above: Performed By: #### L IPID, CMP #### [facility] [address] [place] [address] Dr. Mel Barrientos LIPID PROFILEon 10-10-2021 CHOL-HDL RATIO NORM SEE BELOW Normal [facility] Comment on above: Result Comment: 3.3 - 4.4 LOW RISK 4.4 - 7.1 AVERAGE RISK 7.1 - 11.0 MODERATE RISK >11.0 HIGH RISK Performed By: #### L IPID, CMP #### [facility] [address] [place] [address] Dr. Mel Barrientos Cholesterol [Mass/Vol] 63 mg/dL Normal <=200 [facility] Comment on above: Performed By: #### L IPID, CMP #### [facility] [address] [place] [address] Dr. Mel Barrientos Cholesterol in HDL [Mass/Vol] 12 mg/dL Critically low 40-60 [facility] Comment on above: Performed By: #### L IPID, CMP #### [facility] [address] [place] [address] Dr. Mel Barrientos Cholesterol in LDL [Mass/Vol] 32.2 mg/dL Normal [facility] Comment on above: Performed By: #### L IPID, CMP #### [facility] [address] [address] [address] Mel Barrientos Cholesterol.total/Cho lesterol in HDL [Mass ratio] 5.3 {ratio} Normal [facility] Comment on above: Performed By: #### L IPID, CMP #### [facility] [address] [place] [address] Dr. Mel Barrientos HDL NORMAL > or = 60 mg/dl - LO W CARDIOVASCULAR RISK <40 mg/dl - HIGH CARDIOVASCULAR RISK Normal [facility] Comment on above: Performed By: #### L IPID, CMP #### [facility] [address] [place] [address] Dr. Mel Barrientos LDL CALC NORMAL SEE BELOW Normal [facility] Comment on above: Result Comment: <100 mg/dl OPTIMAL 100 - 129 mg/dl NEAR OR ABOVE OPTIMAL 130 - 159 mg/dl BORDERLINE HIGH 160 - 189 mg/dl HIGH >190 mg/dl VERY HIGH Performed By: #### L IPID, CMP #### [facility] [address] [place] [address] Dr. Mel Barrientos Triglyceride [Mass/Vol] 94 mg/dL Normal <=150 [facility] Comment on above: Performed By: #### L IPID, CMP #### [facility] [address] [place] [address] Dr. Mel Barrientos VLDL CALC 18.8 mg/dL Normal [facility] Comment on above: Performed By: #### L IPID, CMP #### [facility] [address] [place] [address] Dr. Mel Barrientos PROF 14(COMP METB)on 022 Albumin [Mass/Vol] 2.4 g/dL Critically low 3.4-5.0 Th e [facility] Comment on above: Performed By: #### L IPID, CMP #### [facility] [address] [place] [address] Dr. Mel Barrientos Albumin/Globulin [Mass ratio] 0.8 {ratio} Normal [facility] Comment on above: Performed By: #### L IPID, CMP #### [facility] [address] [address] [address] Mel Barrientos ALP [Catalytic activity/Vol] 153 U/L Critically high 46-116 [facility] Comment on above: Performed By: #### L IPID, CMP #### [facility] [address] [place] [address] Dr. Mel Barrientos ALT [Catalytic activity/Vol] 133 U/L Critically high 16-63 [facility] Comment on above: Performed By: #### L IPID, CMP #### [facility] [address] [place] [address] Dr. Mel Barrientos Anion gap [Moles/Vol] 12.1 mmol/L Normal [facility] Comment on above: Performed By: #### L IPID, CMP #### [facility] [address] [place] [address] Dr. Mel Barrientos AST [Catalytic activity/Vol] 215 U/L Critically high 15-37 [facility] Comment on above: Performed By: #### L IPID, CMP #### [facility] [address] [place] [address] Dr. Mel Barrientos Bilirubin [Mass/Vol] 0.4 mg/dL Normal 0.2-1.3 [facility] Comment on above: Performed By: #### L IPID, CMP #### [facility] [address] [place] [address] Dr. Mel Barrientos Calcium [Mass/Vol] 7.6 mg/dL Critically low 8.5-10.1 [facility] Comment on above: Performed By: #### L IPID, CMP #### [facility] [address] [place] [address] Dr. Mel Barrientos Chloride [Moles/Vol] 107 mmol/L Normal 98-107 [facility] Comment on above: Performed By: #### L IPID, CMP #### [facility] [address] [place] [address] Dr. Mel Barrientos CO2 [Moles/Vol] 22.8 mmol/L Normal 22.0-30.0 [facility] Comment on above: Performed By: #### L IPID, CMP #### [facility] [address] [address] [address] Mel Barrientos Creatinine [Mass/Vol] 0.99 mg/dL Normal 0.66-1.25 [facility] Comment on above: Performed By: #### L IPID, CMP #### [facility] [address] [address] [address] Mel Barrientos EGFR-AF MICRONESIAN >60 Normal >=60 [facility] Comment on above: Performed By: #### L IPID, CMP #### [facility] [address] [address] [address] Mel Barrientos EGFR-NON AF MICRONESIAN >60 Normal >=60 [facility] Comment on above: Performed By: #### L IPID, CMP #### [facility] [address] [address] [address] Mel Barrientos Globulin (S) [Mass/Vol] 3.2 g/dL Normal [facility] Comment on above: Performed By: #### L IPID, CMP #### [facility] [address] [address] [address] Mel Barrientos Glucose [Mass/Vol] 68 mg/dL Critically low 74-106 [facility] Comment on above: Performed By: #### L IPID, CMP #### [facility] [address] [address] [address] Mel Barrientos Potassium [Moles/Vol] 4.9 mmol/L Normal 3.4-5.0 [facility] Comment on above: Performed By: #### L IPID, CMP #### [facility] [address] [address] [address] Mel Barrientos Protein [Mass/Vol] 5.6 g/dL Critically low 6.1-8.2 [facility] Comment on above: Performed By: #### L IPID, CMP #### [facility] [address] [address] [address] Mel Barrientos Sodium [Moles/Vol] 137 mmol/L Normal 137-145 [facility] Comment on above: Performed By: #### L IPID, CMP #### [facility] [address] [address] [address] Mel Barrientos Urea nitrogen [Mass/Vol] 30.0 mg/dL Critically high 7.0-18.0 [facility] Comment on above: Performed By: #### L IPID, CMP #### [facility] [address] [address] [address] Mel Barrientos Urea nitrogen/Creatinine [Mass ratio] 30.3 mg/mg Normal [facility] Comment on above: Performed By: #### L IPID, CMP #### [facility] [address] [address] [address] Mel Barrientos CASE MANAGEMon 10-09-2017 CASE MANAGEM HNO ID: [id number] thor: Clementina Culver (Lsw)uloService: Care ManagementAuthor Type: Social WorkerType: Care Mgt Progress NoteFiled: 10/09/2017 3:12 PMNote Text:CARE MANAGEMENT DISCHARGE NOTESERVICE DATE: 10/09/2017SERVICE TIME: 3:02 PM LOS: 9 daysAdmission Date: 09/30/2017DISCHARGE ARRANGEMENT (list agency and phone number)[facility]I facilityProvider: [facility] GOAAGCCYF ASSESSMENT:Caregiver is ready, willing and able to meet the patient's needs asrecommended by the inter-professional team? YesPatient's transition needs and plan for meeting these needs: SNFDoes the patient have an acute stroke diagnosis, or has the patient had astroke during this admission? NoHANDOFF COMMUNICATION:Primary Care Physician: Dr. Adriane Nichols [id number] ARRANGEMENTS:Car FamilyADDITIONAL CONTACT RESOURCES: Pt sister Briana Muller [phone] Prior to Discharge: Ready for DischargePt medically cleared for d/c. Pt referral updated and Liaison met with Ptand nursing this afternoon. CM prepared d/c packet and 7000 and placed onPt chart w/number for nursing to call report. Per Pt and Pt sister familyto transport Pt around [phone] today. Text to Allegra GARCIA) to contactnursing on Pt d/c instructions.SIGNATURE: TRACI Hammer PATIENT NAME: Rocio FrischDATE: October 09, 2017 : 3:02 PM PAGER/CONTACT #: [phone] Normal [facility] CBC and Differentialon 10-09 Abs Baso <0.03 Normal <0.11 [facility] Comment on above: Performed By: #### P T, PTT, AMYL, CMP, LIPA, PHOS ####[address] [address]#### TRANSF ####[address] [phone] Abs Vance 0.40 k/uL Normal <0.87 [facility] Comment on above: Performed By: #### P T, PTT, AMYL, CMP, LIPA, PHOS ####[address] [address]#### TRANSF ####[address] [phone] Abs Neut 3.59 k/uL Normal 1.45-7.50 [facility] Comment on above: Performed By: #### P T, PTT, AMYL, CMP, LIPA, PHOS ####[address] [address]#### TRANSF ####[address] Basophils/100 WBC Auto (Bld) 0.3 % [facility] Comment on above: Performed By: #### P T, PTT, AMYL, CMP, LIPA, PHOS ####[address] [address]#### TRANSF ####[address] [phone] DTYPE Auto Diff [facility] Comment on above: Performed By: #### P T, PTT, AMYL, CMP, LIPA, PHOS ####[address] [address]#### TRANSF ####[address] [address] Eosinophils 0.10 10*3/uL Normal <0.46 [facility] Comment on above: Performed By: #### P T, PTT, AMYL, CMP, LIPA, PHOS ####[address] [address]#### TRANSF ####[address] [place] [address] Eosinophils/100 leukocytes 1.7 % Normal [facility] Comment on above: Performed By: #### P T, PTT, AMYL, CMP, LIPA, PHOS ####[address] [address]#### TRANSF ####[address] [address] Erythrocyte distribution width Auto Ratio (RBC) 16.8 % High 11.5-15.0 [facility] Comment on above: Performed By: #### P T, PTT, AMYL, CMP, LIPA, PHOS ####[address] [address]#### TRANSF ####[address] [address] Erythrocytes (RBC) 3.79 10*6/uL Low 4.20-6.00 [facility] Comment on above: Performed By: #### P T, PTT, AMYL, CMP, LIPA, PHOS ####[address] [address]#### TRANSF ####[address] [address] Hematocrit (HCT) 29.8 % Low 39.0-51.0 [facility] Comment on above: Performed By: #### P T, PTT, AMYL, CMP, LIPA, PHOS ####[address]#### TRANSF ####[phone] Hemoglobin mass conc (Bld) 9.5 g/dL Low 13.0-17.0 [facility] Comment on above: Performed By: #### P T, PTT, AMYL, CMP, LIPA, PHOS ####[address] [address]#### TRANSF ####[address] [phone] Lymphocytes 1.69 10*3/uL Normal 1.00-4.00 [facility] Comment on above: Performed By: #### P T, PTT, AMYL, CMP, LIPA, PHOS ####[address] [address]#### TRANSF ####[address] [phone] Lymphocytes/100 leukocytes 29.1 % Normal [facility] Comment on above: Performed By: #### P T, PTT, AMYL, CMP, LIPA, PHOS ####[address] [address]#### TRANSF ####[address] [phone] MCH 25.1 pG Low 26.0-34.0 [facility] Comment on above: Performed By: #### P T, PTT, AMYL, CMP, LIPA, PHOS ####[address] [address]#### TRANSF ####[address] [phone] MCHC mass conc (RBC) 31.9 g/dL Normal 30.5-36.0 [facility] Comment on above: Performed By: #### P T, PTT, AMYL, CMP, LIPA, PHOS ####[address] [address]#### TRANSF ####[address] [phone] MCV 78.6 fL Low 80.0-100.0 [facility] Comment on above: Performed By: #### P T, PTT, AMYL, CMP, LIPA, PHOS ####[address] [address]#### TRANSF ####[address] [phone] Monocytes/100 leukocytes 6.9 % Normal [facility] Comment on above: Performed By: #### P T, PTT, AMYL, CMP, LIPA, PHOS ####[address] [address]#### TRANSF ####[phone] Neutrophils/100 WBC Auto (Bld) 62.0 % Normal [facility] Comment on above: Performed By: #### P T, PTT, AMYL, CMP, LIPA, PHOS ####[address] [address]#### TRANSF ####[phone] Platelet mean volume (PMV) 9.3 fL Normal 9.0-12.7 [facility] Comment on above: Performed By: #### P T, PTT, AMYL, CMP, LIPA, PHOS ####[address] [address]#### TRANSF ####[address] [phone] Platelets 421 10*3/uL High 150-400 [facility] Comment on above: Performed By: #### P T, PTT, AMYL, CMP, LIPA, PHOS ####[address] [phone]#### TRANSF ####[facility] [place], [place] [phone] WBC (Leukocytes) 5.80 10*3/uL Normal 3.70-11.00 [facility] Comment on above: Performed By: #### P T, PTT, AMYL, CMP, LIPA, PHOS ####[address] [phone]#### TRANSF ####[facility] [place], [place] [phone] CNDSon 10-09-2017 CNDS HNO ID: [id number] thor: Harmony (Fadi RodriguezService: General SurgeryAuthor Type: ResidentType: Discharge SummariesFiled: 10/27/2017 12:15 PMNote Text:DISCHARGE SUMMARYPATIENT NAME: Rocio Jackson ADMISSION DATE: 09/30/2017MRN: [id number] DISCHARGE DATE: ATTENDING PHYSICIAN: Michael Jolley)REASON FOR [...] PATIENT: (To pull info documented from the DCInstruct Orderset Complete O/S First): No orders of [...] Glucose (mg/dL) is:Less than 110 Give 0 -153 Give 0 rstuj125-635 Give 2 -681 Give 4 ucyqz025-126 Give 6 vnopc607-444 Give 8 vtbaw709-908 Give 10 unitsGreater than 400 Give 10 [...] 20 mL by mouth once daily.Med Update, Oead-yursovplek-lojwlnbw-arnulfo lase (CREON 24) 24,000-76,000 -120,000 unit cpDRTake [...] PCP: Adriane Nichols AppointmentsDate Time Provider Department [place]10/29/2017 1:30 PM Michael Jolley) [facility] (Use first blank if not applicable): TIME OF CARE: DischargeManagement: I personally spent less than 30 minutes involved in thedischarge management of this patient.SIGNATURE: Harmony Rodriguez MD PATIENT NAME: Rociomarisa JacksonDATE: October 27, 2017 : 12:12 PM PAGER/CONTACT #: [phone] Normal [facility] Comp Metabolic Panelon 10-09 Alanine aminotransferase (ALT) 26 U/L Normal 5-50 [facility] Comment on above: Performed By: #### P T, PTT, AMYL, CMP, LIPA, PHOS ####[facility] [place], [place] [phone]#### TRANSF ####[facility] [phone] Albumin 3.1 g/dL Low 3.5-5.0 [facility] Comment on above: Performed By: #### P T, PTT, AMYL, CMP, LIPA, PHOS ####[address] [address]#### TRANSF ####[address] [phone] Alkaline phosphatase (ALP) 101 U/L Normal 40-150 [facility] Comment on above: Performed By: #### P T, PTT, AMYL, CMP, LIPA, PHOS ####[address] [address]#### TRANSF ####[address] [phone] Anion gap 13 mmol/L Normal 9-18 [facility] Comment on above: Performed By: #### P T, PTT, AMYL, CMP, LIPA, PHOS ####[address] [address]#### TRANSF ####[place] [address] Aspartate aminotransferase (AST) 20 U/L Normal 7-40 [facility] Comment on above: Performed By: #### P T, PTT, AMYL, CMP, LIPA, PHOS ####[address] [address]#### TRANSF ####[address] [phone] Bilirubin (total) 0.2 mg/dL Normal 0.0-1.5 [facility] Comment on above: Performed By: #### P T, PTT, AMYL, CMP, LIPA, PHOS ####[address] [address]#### TRANSF ####[address] [phone] Calcium 8.6 mg/dL Normal 8.5-10.5 [facility] Comment on above: Performed By: #### P T, PTT, AMYL, CMP, LIPA, PHOS ####[address] [address]#### TRANSF ####[address] [phone] Chloride 101 mmol/L Normal 98-110 [facility] Comment on above: Performed By: #### P T, PTT, AMYL, CMP, LIPA, PHOS ####[address] [address]#### TRANSF ####[address] [place] [phone] CO2 24 mmol/L Normal 23-32 [facility] Comment on above: Performed By: #### P T, PTT, AMYL, CMP, LIPA, PHOS ####[address] [address]#### TRANSF ####[place] [address] Creatinine 0.51 mg/dL Low 0.70-1.40 [facility] Comment on above: Performed By: #### P T, PTT, AMYL, CMP, LIPA, PHOS ####[address] [address]#### TRANSF ####[address] [phone] eGFR (non-black) mL/min/{1.73_m2} Normal >60 [facility] Comment on above: Performed By: #### P T, PTT, AMYL, CMP, LIPA, PHOS ####[address] [place] [address]#### TRANSF ####[place] [place] [phone] Glucose mass conc 185 mg/dL High 65-100 [facility] Comment on above: Performed By: #### P T, PTT, AMYL, CMP, LIPA, PHOS ####[place] [address]#### TRANSF ####[place] [phone] Potassium molar conc 3.7 mmol/L Normal 3.5-5.0 [facility] Comment on above: Performed By: #### P T, PTT, AMYL, CMP, LIPA, PHOS ####[address] [place] [address]#### TRANSF ####[place] [phone] Protein 6.5 g/dL Normal 6.0-8.4 [facility] Comment on above: Performed By: #### P T, PTT, AMYL, CMP, LIPA, PHOS ####[address] [address]#### TRANSF ####[place] [phone] Sodium 138 mmol/L Normal 135-146 [facility] Comment on above: Performed By: #### P T, PTT, AMYL, CMP, LIPA, PHOS ####[address] [address]#### TRANSF ####[place] [phone] Urea nitrogen 20 mg/dL Normal 10-25 [facility] Comment on above: Performed By: #### P T, PTT, AMYL, CMP, LIPA, PHOS ####[address]#### TRANSF ####[address] [place] [phone] NURSING PROGon 10-09-2017 NURSING PROG HNO ID: [id number] thor: Reggie (Rn) Clayton Sawantice: (none)Author Type: Registered NurseType: Nursing Progress NoteFiled: 10/09/2017 12:48 PMNote Text: Nursing Progress NotePatient Name: Rocio HayesN: [id number] Location: [facility]/[id number] ____Daily Note: Mr. Jackson up to chair most of shift thus far. Ambulated inhallway with use of walker and 1 staff. He is tolerating tube feed at40ml/hr with no nausea or vomiting. Patient also tolerating clear liquidswith increased intake today as compared to yesterday. Pain controlledwith scheduled Tylenol. Plan for discharge to [facility] ([facility]) today. Patient updated on plan to transfer to SNF and agreeable with plan. Calllight within reach. Will continue to monitor.This note was completed by: Reggie Sawant RN [facility] NURSING PROG HNO ID: [id number] thor: Renae Diaz (Rn) Clayton Paniaguaice: (none)Author Type: Registered NurseType: Nursing Progress NoteFiled: 10/09/2017 2:52 AMNote Text: Nursing Progress NotePatient Name: Rocio JacksonMRN: [id number] Location: [facility]/[id number] ____ 0 (late entry) Patient heart rate 119, when listening to apicalnoticed irregular rhythm and rate of 96. Patient denied chest pain ordiscomfort or SOB. vice president corporate communications notified and telemetry ordered andapplied.2300 Patient seen by surgical technologist and no new orders received at thistime. [...] note was completed by: Renae Paniagua RN [facility] PLAN OF CAREon 10-09-2017 PLAN OF CARE HNO ID: [id number] thor: Miriam Britt (Coating Engineer)Service: (none)Author Type: TechnicianType: Plan of CareFiled: 10/12/2017 9:54 AMNote Text:TRANSPORTATION OPERATIONS MANAGER BEDSIDE DELIVERY SURVEY1. Patient to use [facility] Bedside Delivery - N/A2. If fax, patient would like us to fax prescriptions to [facility]. Pharmacy: b. Location: c. Phone:3. Insurance card on file - N/A4. Credit card for payment - N/A [facility] PROGRESSon 10-09-2017 PROGRESS HNO ID: [id number] thor: Michael Cedillo) AugustinService: General SurgeryAuthor Type: PhysicianType: Progress NotesFiled: 10/09/2017 10:59 AMNote Text:SURGICAL SERVICES PROGRESS NOTENAME: Rocio JacksonMRN: [id number]: 10/09/2017Time: 8:16 JUDIE DATE: 09/30/20179 Days Post-OpProcedure(s) [...] on POD 3 nml, removed. Transferred to [facility]??Patient did well overnight with no acute [...] or distendedstomach/SB.- IPCs, SQH- Continue care on [facility]; Plan to discharge to SNF today pending CM/precertPHYSICAL EXAM:GENERAL: AOx3, NADLUNGS: Nonlabored breathingABDOMEN: Soft, non-distended, nontenderSKIN: Warm, well perfusedBP 151/83 Pulse 75 Temp 36.9 ?C (98.5 ?F) (Temporal Artery) Resp 18 Ht 172.7 cm (5' 7.99 ) Wt 88.8 kg (195 lb 12.3 oz) SpO2 96% BMI29.77 kg/f3Ohyjrr/Output Summary (Last 24 hours) at 10/09/17 0952Last [...] values in this interval not displayed.CoagsRecent Labs 09/24/1808411732QQUW 25.9 24.9 -- -- 39.8* 31.6INR 1.2 1.1 1.0 2.0* 2.0* 1.5*Tasha Fishert, PGY-1 - General SurgeryPatucson va medical center [address] [facility] THERAPY NTon 10-09-2017 THERAPY NT HNO ID: [id number] thor: Alicia Sinhaervice: Occupational TherapyAuthor Type: Occupational TherapistType: Therapy (PT/OT/Speech/Resp)Filed: 10/09/2017 3:06 PMNote Text:OCCUPATIONAL THERAPY MISSED VISITSERVICE DATE: 10/09/2017SERVICE TIME: 1400 to 1400ROOM: ZF-[id number]-23Xebruadac Treatment. Patient not seen due to (being D/C this pm).SIGNATURE: WENDY Ramires/Timo PATIENT NAME: Rociomarisa JacksonDATE: October 09, 2017 : 3:06 PM PAGER/CONTACT #:[phone] [facility] THERAPY NT HNO ID: [id number] thor: Saima Miranda (Cota)ervice: Occupational TherapyAuthor Type: Occupational Therapy AssistantType: Therapy (PT/OT/Speech/Resp)Filed: 10/09/2017 10:11 AMNote Text: -Attestation signed by Jacqueline Arshad at 10/09/2017 12:31 PMI reviewed and agree with the documentation corresponding to this therapyvisit.SIGNATURE: WENYD Chaparro/LDATE: October 09, 2017TIME: 12:31 PM OC CUPATIONAL THERAPY MISSED VISITSERVICE DATE: 10/09/2017SERVICE TIME: 1009 to 1009ROOM: RH-[id number]-90Rrsqsozxx Treatment. Patient not seen due to Sleeping. Nursing aware(Reggie)SIGNATURE: TRACY Dumont PATIENT NAME: Rocio BriandonnyDATE: October 09, 2017 : 10:10 AM PAGER/CONTACT #:[phone] [facility] CASE MANAGEMon 10-08-2017 CASE MANAGEM HNO ID: [id number] thor: Clementina Florez) PalomouloService: Care ManagementAuthor Type: Social WorkerType: Care Mgt Progress NoteFiled: 10/08/2017 4:29 PMNote Text:MULTIDISCIPLINARY ROUNDSSERVICE DATE: 10/08/2017 ADMISSION DATE: 09/30/2017SERVICE TIME: 10:45 AM ANTICIPATED D/C DATE: 10/10/2017Problem List:ACTIVE PROBLEM LISTDuodenal ObstructionSevere Protein-Calorie Malnutrition (Hcc)Duodenal Cancer (Hcc)Attendees Present at Rounds:Color Repairer: Jasbiramily: Wendyatient: Rocio Shaikh Nurse: Laura Discussed on Rounds:DietDischarge NeedsFamily ConcernsMobilityPlan of CareAnticipated Discharge Disposition:Residential FacilityLast Vitals: BP 153/85 Pulse 90 Temp (Src) 97.9 (Oral) Resp 16 Ht5' 7.992 (1.73m) Wt 195 lb 12.3 oz (88.8kg) SpO2 97% BMI 29.77kg/(m2).Pt SNF vs [place]. Most likely SNFNursing:DOCUMENTED BY: TRACI Hammer PATIENT NAME: Rociomarisa JacksonDATE: October 08, 2017 : 4:27 PM CSN: [id number] [facility] CASE MANAGEM HNO ID: [id number] thor: Clementina Guerra (Lsw)rvice: Care ManagementAuthor Type: Social WorkerType: Care Mgt Progress NoteFiled: 10/08/2017 4:37 PMNote Text:CARE MANAGEMENT PROGRESS NOTESERVICE DATE: 10/08/2017SER TIME: 1:16 PM LOS: 8 daysNeeds Prior to Discharge: Precertification;Accepting Facility;Other: SeeComment (Pt and Pt sister [facility] as [place] they are not able to accept Pt AND feel Pt best suited for SNF. Familymet w Liaison from [place] [facility] who is willing to accept although waitingon acceptance from 1st choice [place])CM phoned and left message inquiring on acceptance of Pt for intake -Denise Garcia.ADDENDUM: 1630: Per Paty at [facility] Pt Insurance is Out ofNetwork. CM met with Pt bedside. Pt sister present, CM discussedinsurance and Pt SNF choices. Per Pt he selects 2nd snf choice of [facility]. CM requested precert to begin.SIGNATURE: TRACI Hammer PATIENT NAME: Rociomarisa TorresschDATE: October 08, 2017 : 1:16 PM PAGER/CONTACT #: [phone] Normal [facility] CASE MANAGEM HNO ID: [id number] thor: Clementina Timo Vikki) Marirvice: Care ManagementAuthor Type: Social WorkerType: Care Mgt Progress NoteFiled: 10/08/2017 9:11 AMNote Text:CARE MANAGEMENT PROGRESS NOTESERVICE DATE: 10/08/2017SERVICE TIME: 9:08 AM LOS: 8 daysFREEDOM OF CHOICE GIVEN:Yes Pt. Rocio Jackson and sister (Jess)Financial Disclosure ProvidedThe patient and/or family has been given the Provider List: YesPreference: [place] vs SNFNeeds Prior to Discharge: Accepting Facility;To BeDetermined;Precertificatio nCMSW met with Pt bedside, Pt AANDOx4. Pt sister, Jess is present. Per Ptand sister they [facility] [place] ([place]) CM spoke w/alina Sarabia [phone] in admission whowill review Pt to determine acceptance. [facility] CM sent referrals.SIGNATURE: TRACI Hammer PATIENT NAME: Rociomarisa JacksonDATE: October 08, 2017 : 9:08 AM PAGER/CONTACT #: [phone] [facility] CBC and Differentialon 10-08 Abs Baso <0.03 Normal <0.11 [facility] Comment on above: Performed By: #### P T, PTT, AMYL, CMP, LIPA, PHOS ####[address] [phone]#### TRANSF ####[facility] [place], [place] [phone] Abs Vance 0.38 k/uL Normal <0.87 [facility] Comment on above: Performed By: #### P T, PTT, AMYL, CMP, LIPA, PHOS ####[address] [phone]#### TRANSF ####[address] [place] [phone] Abs Neut 4.15 k/uL Normal 1.45-7.50 [facility] Comment on above: Performed By: #### P T, PTT, AMYL, CMP, LIPA, PHOS ####[place] [address]#### TRANSF ####[address] [place] [place] [phone] Basophils/100 WBC Auto (Bld) 0.3 % Normal [facility] Comment on above: Performed By: #### P T, PTT, AMYL, CMP, LIPA, PHOS ####[place] [address]#### TRANSF ####[place] [phone] DTYPE Auto Diff Normal [facility] Comment on above: Performed By: #### P T, PTT, AMYL, CMP, LIPA, PHOS ####[place] [address]#### TRANSF ####[place] [phone] Eosinophils 0.07 10*3/uL Normal <0.46 [facility] Comment on above: Performed By: #### P T, PTT, AMYL, CMP, LIPA, PHOS ####[place] [address]#### TRANSF ####[place] [phone] Eosinophils/100 leukocytes 1.1 % Normal [facility] Comment on above: Performed By: #### P T, PTT, AMYL, CMP, LIPA, PHOS ####[place] [address]#### TRANSF ####[place] [phone] Erythrocyte distribution width Auto Ratio (RBC) 16.8 % High 11.5-15.0 [facility] Comment on above: Performed By: #### P T, PTT, AMYL, CMP, LIPA, PHOS ####[place] [address]#### TRANSF ####[place] [phone] Erythrocytes (RBC) 3.72 10*6/uL Low 4.20-6.00 [facility] Comment on above: Performed By: #### P T, PTT, AMYL, CMP, LIPA, PHOS ####[place] [address]#### TRANSF ####[place] [phone] Hematocrit (HCT) 29.5 % Low 39.0-51.0 [facility] Comment on above: Performed By: #### P T, PTT, AMYL, CMP, LIPA, PHOS ####[place] [address]#### TRANSF ####[place] [phone] Hemoglobin mass conc (Bld) 9.4 g/dL Low 13.0-17.0 [facility] Comment on above: Performed By: #### P T, PTT, AMYL, CMP, LIPA, PHOS ####[place] [address]#### TRANSF ####[place] [phone] Lymphocytes 1.91 10*3/uL Normal 1.00-4.00 [facility] Comment on above: Performed By: #### P T, PTT, AMYL, CMP, LIPA, PHOS ####[place] [address]#### TRANSF ####[place] [phone] Lymphocytes/100 leukocytes 29.2 % Normal [facility] Comment on above: Performed By: #### P T, PTT, AMYL, CMP, LIPA, PHOS ####[place] [address]#### TRANSF ####[place] [phone] MCH 25.3 pG Low 26.0-34.0 [facility] Comment on above: Performed By: #### P T, PTT, AMYL, CMP, LIPA, PHOS ####[place] [address]#### TRANSF ####[place] [phone] MCHC mass conc (RBC) 31.9 g/dL Normal 30.5-36.0 [facility] Comment on above: Performed By: #### P T, PTT, AMYL, CMP, LIPA, PHOS ####[place] [address]#### TRANSF ####[place] [phone] MCV 79.3 fL Low 80.0-100.0 [facility] Comment on above: Performed By: #### P T, PTT, AMYL, CMP, LIPA, PHOS ####[place] [address]#### TRANSF ####[place] [phone] Monocytes/100 leukocytes 5.8 % Normal [facility] Comment on above: Performed By: #### P T, PTT, AMYL, CMP, LIPA, PHOS ####[place] [address]#### TRANSF ####[place] [phone] Neutrophils/100 WBC Auto (Bld) 63.6 % Normal [facility] Comment on above: Performed By: #### P T, PTT, AMYL, CMP, LIPA, PHOS ####[place] [address]#### TRANSF ####[place] [phone] Platelet mean volume (PMV) 9.3 fL Normal 9.0-12.7 [facility] Comment on above: Performed By: #### P T, PTT, AMYL, CMP, LIPA, PHOS ####[place] [address]#### TRANSF ####[place] [phone] Platelets 370 10*3/uL Normal 150-400 [facility] Comment on above: Performed By: #### P T, PTT, AMYL, CMP, LIPA, PHOS ####[place] [address]#### TRANSF ####[place] [phone] WBC (Leukocytes) 6.53 10*3/uL Normal 3.70-11.00 [facility] Comment on above: Performed By: #### P T, PTT, AMYL, CMP, LIPA, PHOS ####[address]#### TRANSF ####[place] [phone] CONSULT PROGon 10-08-2017 CONSULT PROG HNO ID: [id number] thor: Damaris Rojasice: EndocrinologyAuthor Type: PhysicianType: Consult Progress NoteFiled: 10/09/2017 9:48 AMNote Text:ENDOCRINOLOGY PROGRESS NOTEPATIENT NAME: Rocio JacksonMRN: [id number] DATE: 10/08/2017SERVICE TIME: 5:27 PMREASON FOR CONSULT: [...] with pRBC on 10/02/2017 so obtaining a CaJ8mjul will not be helpful. He is receiving [...] Date- ANGIOPLASTY HX 05/15/2011 2 stents s/p [place];[facility]- CHOLECYSTECTOMY 08/11/2017 [facility]- PICC LINE INSERT/CONSULT 08/16/2017No family history on file.Social HistorySubstance Use Topics- Smoking status: Former Smoker Types: Cigarettes Quit date: 2010- Smokeless tobacco: Never Used- Alcohol use 1.5 oz/week 1 Cans of Beer (12oz) per week Comment: occasional beerCURRENT MEDICATION:Current Facility-Administered Medications:insulin glargine 10 Units injection (long acting) (LANTUS) 10 UnitsSUBCUTANEOUS AT BEDTIME Damaris Lauren 10 Units at 10/07/17 2100erythromycin ethyl succinate 200 mg oral liquid (E.E.S.) 200 mg ORAL wMEALS AND HS Allegra S (Saima) Miglionico 200 mg at 10/08/17 1625scopolamine 1 mg over 3 days 1 Patch (TRANSDERM-SCOP) 1 Patch TRANSDERMALq 72 HR Allegra S (Pa) Miglionico 1 Patch at 10/06/17 1100And[START ON 10/09/2017] scopolamine - REMOVE PATCH OTHER q 72 HR Allegra S(Pa) MiglionicoAndscopolamine - VERIFY patch OTHER q 8 H Allegra S (Pa) Miglionicoinsulin lispro injection (rapid acting) (HumaLOG) SUBCUTANEOUS q 6 HDorota Lauren 1 Units at 10/08/17 1351fentaNYL 50 mcg/mL 25 mcg injection (SUBLIMAZE) 25 mcg INTRAVENOUS q 4 HPRN Allegra S (Pa) Miglionicoacetaminophen 650 mg CUP (TYLENOL) 650 mg ORAL q 6 H Allegra S (Pa)Miglionico 650 mg at 10/08/17 1329oxyCODONE 5 mg oral liquid (ROXICODONE) 5 mg ORAL q 4 H PRN Yrn Cedillo)Gonzalo 5 mg at 10/07/17 6894sdkhgx-kqqoszmn-vwlxylz 2 capsule cap(s) (CREON 24) 2 capsule ORAL TID wMEALS Flynn (Res) MD Jane 2 capsule at 10/08/17 0830phenol 1 [place] (CHLORASEPTIC) 1 [place] MUCOUS MEMBRANE (TOPICAL MOUTH ANDTHROAT) q 2 H PRN Kolby (Res) Kevin 1 [place] at 10/02/17 21080.9% NaCl 2-10 mL 2-10 mL INTRAVENOUS q [...] ml 2 g INTRAVENOUSPRN(NO DISPENSE) Antonios (Res)(Hist) Siderisheparin 5,000 Units injection 5,000 Units SUBCUTANEOUS q 12 H Antonios(Res)(Hist) Sideris 5,000 Units at 10/08/17 0954metoclopramide HCl 10 mg injection (REGLAN) 10 mg INTRAVENOUS q 6 H PRNAntonios (Res)(Hist) Sideris 10 mg at 10/07/17 1610Allergies As of Date: 09/16/2017(No Known Allergies)Fully Assessed 09/15/2017COMPLETE REVIEW OF SYSTEMS:General: no fever, chillsSkin: no rashes, but has dry skinPulmonary: does not appear dyspneicObjectivePHYSICAL EXAM:BP 153/85 Pulse 90 Temp 36.6 ?C (97.9 ?F) (Oral) Resp 16 Ht 172.7 cm(5' 7.99 ) Wt 88.8 kg (195 lb 12.3 oz) SpO2 97% BMI 29.77 kg/e0Kiecsjh: Well appearing, sleeping, in no acute distress.Skin: skin color is pale.Heart: RRRExtremities: Trace edema present in the lower extremities.DATA:Diagnostic tests reviewed for today's visit:Most recent labsComponent Glucose, Point of Care InsulinLatest Ref Rng AND Units 74 - 99 mg/dL10/07/2017 5:41 AM 183 (A) H210/07/2017 11:33 AM 195 (A) 22/05/2018 5:28 PM 193 (A) 22/05/2018 8:34 PM 202 (A) Lantus 11:46 PM 178 (A) 21/06/2018 5:44 AM 172 (A) 21/06/2018 1:17 PM 199 (A) X4Akmjracfu Latest Ref Rng AND Units 10/07/2017 10/08/2017 [...] to 12 units at bedtimeASHLEY SyedIGNATURE: Damaris Aguilar, MDDATE: October 08, 2017TIME: 5:27 PM Normal [facility] Comp Metabolic Panelon 10-08 Alanine aminotransferase (ALT) 31 U/L Normal 5-50 [facility] Comment on above: Performed By: #### P T, PTT, AMYL, CMP, LIPA, PHOS ####[place] [address]#### TRANSF ####[place] [phone] Albumin 3.3 g/dL Low 3.5-5.0 [facility] Comment on above: Performed By: #### P T, PTT, AMYL, CMP, LIPA, PHOS ####[place] [address]#### TRANSF ####[place] [phone] Alkaline phosphatase (ALP) 106 U/L Normal 40-150 [facility] Comment on above: Performed By: #### P T, PTT, AMYL, CMP, LIPA, PHOS ####[place] [address]#### TRANSF ####[place] [phone] Anion gap 13 mmol/L Normal 9-18 [facility] Comment on above: Performed By: #### P T, PTT, AMYL, CMP, LIPA, PHOS ####[place] [address]#### TRANSF ####[place] [address] Aspartate aminotransferase (AST) 25 U/L Normal 7-40 [facility] Comment on above: Performed By: #### P T, PTT, AMYL, CMP, LIPA, PHOS ####[place] [address]#### TRANSF ####[place] [phone] Bilirubin (total) 0.2 mg/dL Normal 0.0-1.5 [facility] [place] Comment on above: Performed By: #### P T, PTT, AMYL, CMP, LIPA, PHOS ####[place] [address]#### TRANSF ####[address]inal[address] [place] [phone] Calcium 8.8 mg/dL Normal 8.5-10.5 [facility] Comment on above: Performed By: #### P T, PTT, AMYL, CMP, LIPA, PHOS ####[place] [address]#### TRANSF ####[place] [phone] Chloride 102 mmol/L Normal 98-110 [facility] Comment on above: Performed By: #### P T, PTT, AMYL, CMP, LIPA, PHOS ####[place] [address]#### TRANSF ####[place] [phone] CO2 26 mmol/L Normal 23-32 [facility] Comment on above: Performed By: #### P T, PTT, AMYL, CMP, LIPA, PHOS ####[place] [address]#### TRANSF ####[place] [phone] Creatinine 0.55 mg/dL Low 0.70-1.40 [facility] Comment on above: Performed By: #### P T, PTT, AMYL, CMP, LIPA, PHOS ####[place] [address]#### TRANSF ####[address] [place] [phone] eGFR (non-black) mL/min/{1.73_m2} Normal >60 [facility] Comment on above: Performed By: #### P T, PTT, AMYL, CMP, LIPA, PHOS ####[place] [address]#### TRANSF ####[place] [address] [address] [place] [phone] Glucose mass conc 152 mg/dL High 65-100 [facility] [place] Comment on above: Performed By: #### P T, PTT, AMYL, CMP, LIPA, PHOS ####[place] [address]#### TRANSF ####[place] [phone] Potassium molar conc 3.8 mmol/L Normal 3.5-5.0 [facility] Comment on above: Performed By: #### P T, PTT, AMYL, CMP, LIPA, PHOS ####[place] [address]#### TRANSF ####[place] [phone] Protein 6.7 g/dL Normal 6.0-8.4 [facility] Comment on above: Performed By: #### P T, PTT, AMYL, CMP, LIPA, PHOS ####[place] [address]#### TRANSF ####[address] [place] [phone] Sodium 141 mmol/L Normal 135-146 [facility] Comment on above: Performed By: #### P T, PTT, AMYL, CMP, LIPA, PHOS ####[place] [address]#### TRANSF ####[address] [phone] Urea nitrogen 18 mg/dL Normal 10-25 [facility] Comment on above: Performed By: #### P T, PTT, AMYL, CMP, LIPA, PHOS ####[facility] [place], [place] [phone]#### TRANSF ####[facility] [address] [place], [place] [phone] NURSING PROGon 10-08-2017 NURSING PROG HNO ID: [id number] thor: Reggie KenRn) MOUSTAPHA Sawantervice: (none)Author Type: Registered NurseType: Nursing Progress NoteFiled: 10/08/2017 8:55 AMNote Text: Nursing Progress NotePatient Name: Rociomarisa Boudreaux: [id number] Location: [place] [id number] ____Daily Note: Mr. Jackson awake and alert [...] note was completed by: Reggie Sawant RN Normal [facility] PROGRESSon 10-08-2017 PROGRESS HNO ID: [id number] thor: Salvador (Georges) ASHLEY Birminghamervice: General SurgeryAuthor Type: ResidentType: Progress NotesFiled: 10/08/2017 9:38 AMNote Text:SURGICAL SERVICES PROGRESS NOTENAME: Rocio Boudreaux: [id number]: 10/08/2017Time: 8:16 JUDIE DATE: 09/30/20178 Days Post-OpProcedure(s) [...] on POD 3 nml, removed. Transferred to [facility]??Patient did well overnight with no acute [...] ac/hsfor DGE- IPCs, SQH- Continue care on [facility]; will continue dispo planning for SNF todayPHYSICAL EXAM:GENERAL: AOx3, NADLUNGS: Nonlabored breathingABDOMEN: Soft, non-distended, nontenderSKIN: Warm, well perfusedBP 152/78 Pulse 73 Temp 37.3 ?C (99.1 ?F) (Oral) Resp 16 Ht 172.7cm (5' 7.99 ) Wt 88.8 kg (195 lb 12.3 oz) SpO2 97% BMI 29.77 kg/k3Hppcnr/Output Summary (Last 24 hours) at 10/08/17 0936Last [...] in this interval not displayed.CoagsRecent Labs 09/24/18083 08/15/1820911368ZSHE 25.9 24.9 -- -- 39.8* 31.6INR 1.2 1.1 1.0 2.0* 2.0* 1.5*Poonam Fisher, PGY-1 - General SurgeryPager [phone] [facility] ALLIED HEALTHon 10-07-2017 ALLIED HEALTH HNO ID: [id number] thor: Allegra Bruce) Lea Espitia: RadiologyAuthor Type: TechnicianType: Allied HealthFiled: 10/07/2017 12:43 PMNote Text: Radiology Service Progress NotePATIENT NAME: Rocio JacksonN: [id number] OF SERVICE: October 07, 2017TIME: 12:42 PMPATIENT IDENTITY VERIFICATION COMPLETED USING TWO (2) METHODS: Patientconfirmed name verbally and ID band matches..PATIENT GENDER DATA: MalePATIENT RELEVANT IMPLANT DATA REVIEWED: Not ApplicableRADIOLOGY DEPARTMENT: General X-ray: Exam(s) Completed: Chest X-RayAbdomen X-Ray Abdomen Supine / AP ErectPERIPHERAL IV DATA: Not applicableSIGNED BY: Omkar Dinh RTApril 2017 12:42 PM Normal [facility] CASE MANAGEMon 10-07-2017 CASE MANAGEM HNO ID: [id number] thor: Clementina Culver (Lsw)uloService: Care ManagementAuthor Type: [...] time. CM will continue to follow.ADDENDUM: 1553: [facility], Pt sister's present (Jess/Oanh) CMreviewed connected care agencies and Star ratings. Pt and [facility]eto [facility]. Per Pt and sisters they would like toreview list and facilities and provided choices in the morning. CMdiscussed w/nursing.SIGNATURE: TRACI Hammer PATIENT NAME: Rocio FrischDATE: October 07, 2017 : 12:32 PM PAGER/CONTACT #: [phone] Normal [facility] CBC and Differentialon 10-07 Abs Baso <0.03 Normal <0.11 [facility] Comment on above: Performed By: #### P T, PTT, AMYL, CMP, LIPA, PHOS ####[facility] [place], [place] [phone]#### TRANSF ####[place] [address] [address] Av[place] [phone] Abs Vance 0.49 k/uL Normal <0.87 [facility] Comment on above: Performed By: #### P T, PTT, AMYL, CMP, LIPA, PHOS ####[place] [address]#### TRANSF ####[place] [phone] Abs Neut 4.36 k/uL Normal 1.45-7.50 [facility] Comment on above: Performed By: #### P T, PTT, AMYL, CMP, LIPA, PHOS ####[place] [address]#### TRANSF ####[place] [phone] Basophils/100 WBC Auto (Bld) 0.1 % Normal [facility] Comment on above: Performed By: #### P T, PTT, AMYL, CMP, LIPA, PHOS ####[place] [address]#### TRANSF ####[place] [phone] DTYPE Auto Diff Normal [facility] Comment on above: Performed By: #### P T, PTT, AMYL, CMP, LIPA, PHOS ####[place] [address]#### TRANSF ####[place] [phone] Eosinophils 0.04 10*3/uL Normal <0.46 [facility] Comment on above: Performed By: #### P T, PTT, AMYL, CMP, LIPA, PHOS ####[place] [address]#### TRANSF ####[place] [phone] Eosinophils/100 leukocytes 0.6 % Normal [facility] Comment on above: Performed By: #### P T, PTT, AMYL, CMP, LIPA, PHOS ####[address]#### TRANSF ####[place] [phone] Erythrocyte distribution width Auto Ratio (RBC) 16.8 % High 11.5-15.0 [facility] Comment on above: Performed By: #### P T, PTT, AMYL, CMP, LIPA, PHOS ####[place] [address]#### TRANSF ####[place] [address] Erythrocytes (RBC) 3.55 10*6/uL Low 4.20-6.00 [facility] Comment on above: Performed By: #### P T, PTT, AMYL, CMP, LIPA, PHOS ####[address]#### TRANSF ####[place] [address] Hematocrit (HCT) 28.9 % Low 39.0-51.0 [facility] Comment on above: Performed By: #### P T, PTT, AMYL, CMP, LIPA, PHOS ####[address]#### TRANSF ####[place] [phone] Hemoglobin mass conc (Bld) 8.9 g/dL Low 13.0-17.0 [facility] Comment on above: Performed By: #### P T, PTT, AMYL, CMP, LIPA, PHOS ####[address]#### TRANSF ####[place] [phone] Lymphocytes 1.89 10*3/uL Normal 1.00-4.00 [facility] Comment on above: Performed By: #### P T, PTT, AMYL, CMP, LIPA, PHOS ####[place] [address]#### TRANSF ####[place] [address] Lymphocytes/100 leukocytes 27.8 % Normal [facility] Comment on above: Performed By: #### P T, PTT, AMYL, CMP, LIPA, PHOS ####[place] [address]#### TRANSF ####[place] [phone] MCH 25.1 pG Low 26.0-34.0 [facility] Comment on above: Performed By: #### P T, PTT, AMYL, CMP, LIPA, PHOS ####[place] [address]#### TRANSF ####[place] [phone] MCHC mass conc (RBC) 30.8 g/dL Normal 30.5-36.0 [facility] Comment on above: Performed By: #### P T, PTT, AMYL, CMP, LIPA, PHOS ####[place] [address]#### TRANSF ####[place] [address] MCV 81.4 fL Normal 80.0-100.0 [facility] Comment on above: Performed By: #### P T, PTT, AMYL, CMP, LIPA, PHOS ####[place] [address]#### TRANSF ####[place] [phone] Monocytes/100 leukocytes 7.2 % Normal [facility] Comment on above: Performed By: #### P T, PTT, AMYL, CMP, LIPA, PHOS ####[place] [address]#### TRANSF ####[place] [phone] Neutrophils/100 WBC Auto (Bld) 64.3 % Normal [facility] Comment on above: Performed By: #### P T, PTT, AMYL, CMP, LIPA, PHOS ####[place] [address]#### TRANSF ####[place] [phone] Platelet mean volume (PMV) 9.2 fL Normal 9.0-12.7 [facility] Comment on above: Performed By: #### P T, PTT, AMYL, CMP, LIPA, PHOS ####[place] [address]#### TRANSF ####[place] [phone] Platelets 329 10*3/uL Normal 150-400 [facility] Comment on above: Performed By: #### P T, PTT, AMYL, CMP, LIPA, PHOS ####[place] [address]#### TRANSF ####[place] [phone] WBC (Leukocytes) 6.79 10*3/uL Normal 3.70-11.00 [facility] Comment on above: Performed By: #### P T, PTT, AMYL, CMP, LIPA, PHOS ####[place] [address]#### TRANSF ####[place] [phone] Comp Metabolic Panelon 10-07 Alanine aminotransferase (ALT) 32 U/L Normal 5-50 [facility] Comment on above: Performed By: #### P T, PTT, AMYL, CMP, LIPA, PHOS ####[place] [address]#### TRANSF ####[place] [address] Albumin 3.2 g/dL Low 3.5-5.0 [facility] Comment on above: Performed By: #### P T, PTT, AMYL, CMP, LIPA, PHOS ####[place] [address]#### TRANSF ####[place] [address] Alkaline phosphatase (ALP) 106 U/L Normal 40-150 [facility] Comment on above: Performed By: #### P T, PTT, AMYL, CMP, LIPA, PHOS ####[place] [address]#### TRANSF ####[place] [address] Anion gap 11 mmol/L Normal 9-18 [facility] Comment on above: Performed By: #### P T, PTT, AMYL, CMP, LIPA, PHOS ####[place] [address]#### TRANSF ####[place] [address] Aspartate aminotransferase (AST) 30 U/L Normal 7-40 [facility] Comment on above: Performed By: #### P T, PTT, AMYL, CMP, LIPA, PHOS ####[place] [address]#### TRANSF ####[place] [address] Bilirubin (total) 0.2 mg/dL Normal 0.0-1.5 [facility] [place] Comment on above: Performed By: #### P T, PTT, AMYL, CMP, LIPA, PHOS ####[place] [address]#### TRANSF ####[place] [address] Calcium 8.8 mg/dL Normal 8.5-10.5 [facility] Comment on above: Performed By: #### P T, PTT, AMYL, CMP, LIPA, PHOS ####[place] [address]#### TRANSF ####[place] [address] Chloride 104 mmol/L Normal 98-110 [facility] Comment on above: Performed By: #### P T, PTT, AMYL, CMP, LIPA, PHOS ####[place] [address]#### TRANSF ####[place] [address] CO2 27 mmol/L Normal 23-32 [facility] Comment on above: Performed By: #### P T, PTT, AMYL, CMP, LIPA, PHOS ####[place] [address]#### TRANSF ####[place] [address] Creatinine 0.60 mg/dL Low 0.70-1.40 [facility] Comment on above: Performed By: #### P T, PTT, AMYL, CMP, LIPA, PHOS ####[place] [phone]#### TRANSF ####[place] [phone] eGFR (non-black) mL/min/{1.73_m2} Normal >60 [facility] Comment on above: Performed By: #### P T, PTT, AMYL, CMP, LIPA, PHOS ####[place] [address]#### TRANSF ####[place] [phone] Glucose mass conc 175 mg/dL High 65-100 [facility] [place] Comment on above: Performed By: #### P T, PTT, AMYL, CMP, LIPA, PHOS ####[place] [address]#### TRANSF ####[place] [phone] Potassium molar conc 4.1 mmol/L Normal 3.5-5.0 [facility] Comment on above: Performed By: #### P T, PTT, AMYL, CMP, LIPA, PHOS ####[place] [address]#### TRANSF ####[place] [phone] Protein 6.6 g/dL Normal 6.0-8.4 [facility] Comment on above: Performed By: #### P T, PTT, AMYL, CMP, LIPA, PHOS ####[place] [address]#### TRANSF ####[place] [phone] Sodium 142 mmol/L Normal 135-146 [facility] Comment on above: Performed By: #### P T, PTT, AMYL, CMP, LIPA, PHOS ####[place] [address]#### TRANSF ####[place] [id number] Urea nitrogen 20 mg/dL Normal 10-25 [facility] Comment on above: Performed By: #### P T, PTT, AMYL, CMP, LIPA, PHOS ####[place] [address]#### TRANSF ####[place] [id number] Magnesiumon 10-07-2017 Magnesium 2.0 mg/dL Normal 1.7-2.6 [facility] Comment on above: Performed By: #### P T, PTT, AMYL, CMP, LIPA, PHOS ####[place] [address]#### TRANSF ####[place] [id number] NURSING PROGon 10-07-2017 NURSING PROG HNO ID: [id number] thor: Kevin (Rn) Shanell, RNService: (none)Author Type: Registered NurseType: Nursing Progress NoteFiled: 10/07/2017 9:41 PMNote Text: Nursing Progress NotePatient Name: Rocio Boudreaux: [id number] [facility]: [id number] ____Daily Note:Pt medicated per AUG. Pt AANDO x3. Pt with minimal pain- Administeredscheduled Tyl per orders. No SOB or headache. IV capped per orders. RUQdrain clamped per orders. Corpak with tube feed infusing per orders.Incision to abdomen- ADELA- C,D,I. No further needs. Call werner within reach.This note was completed by: KEVIN WALKER RN [facility] NURSING PROG HNO ID: [id number] thor: Saima KenRn) Debra, RNService: (none)Author Type: Registered NurseType: Nursing Progress NoteFiled: 10/07/2017 6:57 PMNote Text: Nursing Progress NotePatient Name: Rocio JacksonN: [id number] Location: [place] [address]/XW-[id number] ____Daily Note:Pt resting in the bed and [...] note was completed by: Saima Richardson RN [facility] NURSING PROG HNO ID: [id number] thor: Kevin KenRn) Shanell, MOUSTAPHAervice: (none)Author Type: Registered NurseType: Nursing Progress NoteFiled: 10/07/2017 1:21 AMNote Text: Nursing Progress NotePatient Name: Rocio JacksonN: [id number] Location: [place] [address]/UJ-AC6T-22 ____Daily Note:2330- Took over care for pt. Pt assessed. Pt medicated per AUG. Pt AANDO x3.Pt with minimal pain- Administered scheduled Tyl per orders. No SOB orheadache. IV capped per orders. RUQ drain clamped per orders. Corpak withtube feed infusing per orders. Incision to abdomen- ADELA- C,D,I. No furtherneeds. Call werner within reach.This note was completed by: KEVIN WALKER RN [facility] PLAN OF CAREon 10-07-2017 PLAN OF CARE HNO ID: [id number] thor: Macie Cruz (Pharmacist)Service: PharmacyAuthor Type: PharmacistType: Plan of CareFiled: 10/07/2017 2:09 PMNote Text:MEDICATION HISTORY AND MEDICATION RECONCILIATIONPatient Name:Destiney VenturaMRN: [id number]: 1955Source of history:Family: Reliability of source: Appears reliable,clearly identified: Medication name, Medication dose, Medication route,Medication frequency and IndicationsMedication Nonadherence Identified: No barriers notedThe above information represents the best possible medication history: YesReconciliation completed? 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 09/29/2017at 2099 Yesnitroglycerin sublingual (NITROSTAT) 0.4 mg SL tablet Dissolve 0.4 mgunder the tongue every 5 minutes as needed. NEVER USED YessAXagliptin (ONGLYZA) 5 mg tab Take by mouth once daily. 09/29/2017 at 0900YePadmini Cruz PharmacistAprharman 2017 2:09 PM [facility] PROGRESSon 10-07-2017 PROGRESS HNO ID: [id number] thor: Harmony (Fadi Villasenor: General SurgeryAuthor Type: ResidentType: Progress NotesFiled: 10/07/2017 8:27 AMNote Text:SURGICAL SERVICES PROGRESS NOTENAME: Rocio JacksonMRN: [id number]: 10/07/2017Time: 8:16 JUDIE DATE: 09/30/20177 Days Post-OpProcedure(s) [...] on POD 3 nml, removed. Transferred to [facility]??Patient did well overnight with no acute [...] ac/hsfor DGE- IPCs, SQH- Continue care on [facility]; will begin disposition planning todayPHYSICAL EXAM:GENERAL: AOx3, NADLUNGS: Nonlabored breathingABDOMEN: Soft, non-distendedSKIN: Warm, well perfusedBP 147/79 Pulse 63 Temp 37.3 ?C (99.1 ?F) (Oral) Resp 16 Ht 172.7cm (5' 7.99 ) Wt 88.8 kg (195 lb 12.3 oz) SpO2 97% BMI 29.77 kg/m2Date 10/06/17 07 - 10/07/17 0659 10/07/17 07 - 10/08/17 0659Shift 1337-8743 7420-2406 1545-9596 24 Hour Total 5868-0696 [id number] 24 Hour TotalINTAKE PO 956 956 Tube Feed Intake (GI Feed/Drain 09/30/17 Small Bore Feeding Right Naris10 Fr) 956 956 Irrigants 5 5 100 110 Irrigant/Flush Amount In (Drain/Tube 08/27/17 Admission to HospitalRig Upper Quadrant Abdomen Drain #3) 5 5 10 Irrigant/Flush Amount In (GI Feed/Drain 09/30/17 Small Bore FeedingRight Naris 10 Fr) 100 100 Shift Total 5 5 1056 1066OUTPUT Urine 400 601 553 9259 Void (ml) 400 916 803 6050 Emesis 150 150 Emesis (ml) 150 150 [...] 10/07/2017Bilirubin, Total 0.2 10/07/2017AST 30 10/07/2017ALT 32 10/07/2017Harmony Rodriguez [facility] II general surgery 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 [address] - Personal [facility] PT EDon 10-07-2017 PT ED HNO ID: [id number] thor: Macie Cruz (Pharmacist)Service: PharmacyAuthor Type: PharmacistType: Patient EducationFiled: 10/07/2017 2:13 PMNote Text:Clinical Pharmacy ServicesHigh Risk: Daily Medication AssessmentPatient Name: Rociomarisa HayesN: [id number] Date: 09/30/2017Service Date and Time: 10/07/2017 2:12 PMNew MedicationsThe following medications have been started since last pharmacy review:naloxone, oxycodone, chloraceptic, scopolamineMedication education has been completed: YesSignature: Kathryn CamachoFairview: [phone]: [phone] [facility] PT ED HNO ID: [id number] thor: Macie Cruz (Pharmacist)Service: PharmacyAuthor Type: PharmacistType: Patient EducationFiled: 10/07/2017 2:12 PMNote Text:Clinical Pharmacy ServicesHigh Risk: Daily Medication AssessmentPatient Name: Rocio HayesN: [id number] Date: 09/30/2017Service Date and Time: 10/07/2017 2:11 PMNew MedicationsThe following medications have been started since last pharmacy review:lantus, humalog, creon, magnesium, metoclopramideMedication education has been completed: YesSignature: Macie Cruz PharmacistFairview: [phone]: [phone] [facility] PT ED HNO ID: [id number] thor: Macie Cruz (Pharmacist)Service: PharmacyAuthor Type: PharmacistType: Patient EducationFiled: 10/07/2017 2:11 PMNote Text:Clinical Pharmacy ServicesHigh Risk: Daily Medication AssessmentPatient Name: Rocio Boudreaux: [id number] Date: 09/30/2017Service Date and Time: 10/07/2017 2:10 PMNew MedicationsThe following medications have been started since last pharmacy review:dextrose, glucagon, erythromycin, fentanyl, heparinMedication education has been completed: YesSignature: Macie Cruz PharmacistFairview: [phone]: [phone] Normal [facility] Phosphoruson 10-07-2017 Phosphate 3.0 mg/dL Normal 2.5-4.5 [facility] Comment on above: Performed By: #### P T, PTT, AMYL, CMP, LIPA, PHOS ####[facility] [place] [phone]#### TRANSF ####[facility] [address] [place], [place] [phone] THERAPY NTon 10-07-2017 THERAPY NT HNO ID: [id number] thor: Adela (Instrument Repair Technician) Jhonatane: Physical TherapyAuthor Type: Physical Therapy AssistantType: Therapy (PT/OT/Speech/Resp)Filed: 10/07/2017 11:18 AMNote Text: -Attestation signed by Tonia Schmitz at 10/07/2017 12:03 PMI reviewed and agree with the documentation corresponding to this therapyvisit.SIGNATURE: Tonia Schmitz, PTDATE: October 07, 2017TIME: 12:03 PM Ph ysical Therapy TreatmentSERVICE DATE: 10/07/2017SERVICE TIME: 1000 to 1025ROOM: [facility]p Sandie procedureRecommended Discharge Disposition: Home PTRecommended Discharge Disposition Comments: (pt to return to [facility] )Justification For Post Acute Needs: [...] sister present [facility] PT follow [facility]. Pt [...] l symptoms and signs-otherInterventions Provided: Therapeutic Exercise (07478);Gait Training (78441)Therapeutic Exercise (08314) Treatment Minutes: 101 unitSkilled Intervention(s): Instruction in therapeutic exercise in sittingposition for B LE strengtheningVerbal and tactile cuing provided for performance and pace.Gait Training (37538) Treatment Minutes: 151 unitSkilled Intervention(s): Instruction in [...] mobility assessmentRelevant Past Medical History: HTN, DM, DE, richelle 08/11/17, ARF, refer tochart for full [...] has assist with all IADLs. 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.OBJECTIVE:Mini Cog Score: 1 (10/02/17 0820)CURRENT [...] 07, 2017 : 11:15 AM PAGER/CONTACT #: [phone] [facility] XR ABD 2V SUPINE W UPR/DECUB [...] grossly normal.IMPRESSION:Nonspecifi c nonobstructive bowel gas patternTranscriptionist: NII Transcribe Date/Time: Oct 07 2017 1:02PDictated by : Elisa JEFF examination was interpreted and the report reviewed and electronically signed by: RENATE MACK MD on Oct 07 2017 1:03PM [id number] [facility] XR CHEST 1V FRONTALon 2017 XR [...] silhouette: Normal cardiomediastinal silhouette.Other: .IMPRESSION:No acute radiographic abnormality.Railroad Brake 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 : PSCB Transcribe Date/Time: Oct 07 2017 12:50PDictated by : Elisa JEFF examination was interpreted and the report reviewed and electronically signed by: RENATE MACK MD on Oct 07 2017 1:02PM [id number] [facility] ALLIED HEALTHon 10-06-2017 ALLIED HEALTH HNO ID: [id number] thor: Sally Santoyo (Rt)e: RadiologyAuthor Type: TechnicianType: Allied HealthFiled: 10/06/2017 6:41 AMNote Text: Radiology Service Progress NotePATIENT NAME: Rocio TorresDary: [id number] OF SERVICE: October 06, 2017TIME: 6:34 AMPATIENT IDENTITY VERIFICATION COMPLETED USING TWO (2) METHODS: Patientconfirmed name verbally and ID band matches..PATIENT GENDER DATA: MalePATIENT RELEVANT IMPLANT DATA REVIEWED: Not ApplicableRADIOLOGY DEPARTMENT: General X-ray: Exam(s) Completed: Abdomen X-RayAbdomenPERIPHERAL IV DATA: Not applicableSIGNED BY: Quique Santoyo 2017 6:41 AM [facility] CASE MANAGEMon 10-06-2017 CASE MANAGEM HNO ID: [id number] thor: Chrislyn M (Sw) PalumboService: Care ManagementAuthor Type: Social WorkerType: Care Mgt Progress NoteFiled: 10/06/2017 12:29 PMNote Text:MULTIDISCIPLINARY ROUNDSSERVICE DATE: 10/06/2017 ADMISSION DATE: 09/30/2017SERVICE TIME: 12:27 PM ANTICIPATED D/C DATE: 10/07/2017Problem List:ACTIVE PROBLEM LISTDuodenal ObstructionSevere Protein-Calorie Malnutrition (Hcc)Duodenal Cancer (Hcc)Attendees Present at Rounds:Color Repairer:Nurse Tailor Apprentice/Cofounder Nurse Tailor Apprentice:Toy Designer:Staff Nurse:Needs Discussed on Rounds:Discharge NeedsAnticipated Discharge Disposition:Home with Home Health CareLast Vitals: BP 132/80 Pulse 79 Temp (Src) 98.7 (Oral) Resp 16 Ht5' 7.992 (1.73m) Wt 195 lb 12.3 oz (88.8kg) SpO2 96% BMI 29.77kg/(m2).Pt plans on going to his sister's house at d/c. [facility] PTAand [facility] them [facility] at [...] and Ask QuestionsFluid/Electrolyte Goal Target Achievement Date: 04/12/18Mobility Intervention(s) Plan: Advance Mobility;Encourage Patient/Familyto Participate in [...] October 06, 2017 : 12:27 PM CSN: [id number] Normal [facility] CBC and Differentialon 10-06 Abs Baso <0.03 Normal <0.11 [facility] Comment on above: Performed By: #### P T, PTT, AMYL, CMP, LIPA, PHOS ####[place] [address]#### TRANSF ####[place] [phone] Abs Vance 0.46 k/uL Normal <0.87 [facility] Comment on above: Performed By: #### P T, PTT, AMYL, CMP, LIPA, PHOS ####[place] [address]#### TRANSF ####[place] [phone] Abs Neut 4.56 k/uL Normal 1.45-7.50 [facility] Comment on above: Performed By: #### P T, PTT, AMYL, CMP, LIPA, PHOS ####[place] [address]#### TRANSF ####[place] [phone] Basophils/100 WBC Auto (Bld) 0.1 % Normal [facility] Comment on above: Performed By: #### P T, PTT, AMYL, CMP, LIPA, PHOS ####[place] [address]#### TRANSF ####[place] [phone] DTYPE Auto Diff Normal [facility] Comment on above: Performed By: #### P T, PTT, AMYL, CMP, LIPA, PHOS ####[place] [address]#### TRANSF ####[place] [phone] Eosinophils 0.03 10*3/uL Normal <0.46 [facility] Comment on above: Performed By: #### P T, PTT, AMYL, CMP, LIPA, PHOS ####[place] [address]#### TRANSF ####[place] [phone] Eosinophils/100 leukocytes 0.4 % Normal [facility] Comment on above: Performed By: #### P T, PTT, AMYL, CMP, LIPA, PHOS ####[place] [address]#### TRANSF ####[place] [phone] Erythrocyte distribution width Auto Ratio (RBC) 16.5 % High 11.5-15.0 [facility] Comment on above: Performed By: #### P T, PTT, AMYL, CMP, LIPA, PHOS ####[place] [address]#### TRANSF ####[place] [phone] Erythrocytes (RBC) 3.91 10*6/uL Low 4.20-6.00 [facility] Comment on above: Performed By: #### P T, PTT, AMYL, CMP, LIPA, PHOS ####[place] [address]#### TRANSF ####[place] [phone] Hematocrit (HCT) 31.3 % Low 39.0-51.0 [facility] Comment on above: Performed By: #### P T, PTT, AMYL, CMP, LIPA, PHOS ####[place] [address]#### TRANSF ####[place] [phone] Hemoglobin mass conc (Bld) 10.0 g/dL Low 13.0-17.0 [facility] Comment on above: Performed By: #### P T, PTT, AMYL, CMP, LIPA, PHOS ####[place] [address]#### TRANSF ####[place] [phone] Lymphocytes 1.97 10*3/uL Normal 1.00-4.00 [facility] Comment on above: Performed By: #### P T, PTT, AMYL, CMP, LIPA, PHOS ####[place] [address]#### TRANSF ####[place] [address] Lymphocytes/100 leukocytes 28.0 % Normal [facility] Comment on above: Performed By: #### P T, PTT, AMYL, CMP, LIPA, PHOS ####[place] [address]#### TRANSF ####[place] [address] MCH 25.6 pG Low 26.0-34.0 [facility] Comment on above: Performed By: #### P T, PTT, AMYL, CMP, LIPA, PHOS ####[place] [address]#### TRANSF ####[place] [phone] MCHC mass conc (RBC) 31.9 g/dL Normal 30.5-36.0 [facility] Comment on above: Performed By: #### P T, PTT, AMYL, CMP, LIPA, PHOS ####[place] [address]#### TRANSF ####[place] [address] MCV 80.1 fL Normal 80.0-100.0 [facility] Comment on above: Performed By: #### P T, PTT, AMYL, CMP, LIPA, PHOS ####[place] [address]#### TRANSF ####[place] [address] Monocytes/100 leukocytes 6.5 % Normal [facility] Comment on above: Performed By: #### P T, PTT, AMYL, CMP, LIPA, PHOS ####[address]#### TRANSF ####[address] AvReginal[address] Ville [address] Neutrophils/100 WBC Auto (Bld) 65.0 % Normal [facility] Comment on above: Performed By: #### P T, PTT, AMYL, CMP, LIPA, PHOS ####[place] [address]#### TRANSF ####[place] [phone] Platelet mean volume (PMV) 9.2 fL Normal 9.0-12.7 [facility] Comment on above: Performed By: #### P T, PTT, AMYL, CMP, LIPA, PHOS ####[place] [address]#### TRANSF ####[place] [phone] Platelets 358 10*3/uL Normal 150-400 [facility] Comment on above: Performed By: #### P T, PTT, AMYL, CMP, LIPA, PHOS ####[place] [address]#### TRANSF ####[place] [phone] WBC (Leukocytes) 7.03 10*3/uL Normal 3.70-11.00 [facility] Comment on above: Performed By: #### P T, PTT, AMYL, CMP, LIPA, PHOS ####[place] [address]#### TRANSF ####[place] [phone] CONSULT PROGon 10-06-2017 CONSULT PROG HNO ID: [id number] thor: Damaris Rojasice: EndocrinologyAuthor Type: PhysicianType: Consult Progress NoteFiled: 10/06/2017 5:16 PMNote Text:ENDOCRINOLOGY PROGRESS NOTEPATIENT NAME: Rocio TorresBryannaN: [id number] DATE: 10/06/2017SERVICE TIME: 5:07 PMREASON FOR CONSULT: [...] with pRBC on 10/02/2017 so obtaining a ArH7bgow will not be helpful. Low dose Lantus was started yesterday. Bloodglucose in the 200 mg/dL range today. Patient is sleeping when I visithim today with family by bedside.PAST MEDICAL HISTORYDiagnosis Date- Bleeding ulcer 11/15/2016 required 5 blood transfusions- Diabetes mellitus (HCC) 2016- Glaucoma- Hypertension- Myocardial infarction (HCC) 05/15/2011PAST SURGICAL HISTORYProcedure Laterality Date- ANGIOPLASTY HX 05/15/2011 2 stents s/p DE;[facility]- CHOLECYSTECTOMY 08/11/2017 [facility]- PICC LINE INSERT/CONSULT 08/16/2017No family history on [...] acting) (LANTUS) 10 UnitsSUBCUTANEOUS AT BEDTIME Damaris Aguilarinsulin lispro injection (rapid acting) (HumaLOG) SUBCUTANEOUS q [...] PRN Yrn Cedillo)Gonzalo 5 mg at 10/05/17 7455schobw-nmxwfnad-pybdfbx 2 capsule cap(s) (CREON 24) 2 capsule ORAL TID wMEALS Flynn (Res) MD Jane 2 capsule at 10/04/17 1740phenol 1 [place] (CHLORASEPTIC) 1 [place] MUCOUS MEMBRANE (TOPICAL MOUTH ANDTHROAT) q 2 H PRN Kolby (Res) Kevin 1 [place] at 10/02/17 59169.9% NaCl 2-10 mL 2-10 mL INTRAVENOUS q 12 H Mundo (Res)(Hist) Bgonjau15 mL at 10/06/17 0842naloxone 0.2 mg injection [...] H PRNAntonios (Res)(Hist) Sideris 10 mg at 10/06/17 0837Allergies As of Date: 09/16/2017(No Known Allergies)Fully Assessed 09/15/2017COMPLETE REVIEW OF SYSTEMS:General: no fever, chillsSkin: no rashes, but has dry skinPulmonary: does not appear dyspneicObjectivePHYSICAL EXAM:BP 132/80 Pulse 79 Temp 37.1 ?C (98.7 ?F) (Oral) Resp 16 Ht 172.7 cm(5' 7.99 ) Wt 88.8 kg (195 lb 12.3 oz) SpO2 96% BMI 29.77 kg/d3Zjhibad: Well appearing, sleeping, in no acute distress.Skin: skin color is pale.Heart: RRRExtremities: no edema present.DATA:Diagnostic tests reviewed for today's visit:Most recent labsComponent Glucose, Point of Care InsulinLatest Ref Rng AND Units 74 - 99 mg/dL10/05/2017 5:35 AM 176 (A) H110/05/2017 12:04 PM 184 (A) 12/03/2018 5:29 PM 206 (A) H210/05/2017 11:59 PM 168 (A) Lantus 5H11/04/2018 6:04 AM 212 (A) H210/06/2017 12:12 PM 237 (A) Y3Wtltuwmpz Latest Ref Rng AND Units 10/06/2017 5:51 [...] MDDATE: October 06, 2017TIME: 5:07 PM Normal [facility] Comp Metabolic Panelon 10-06 Alanine aminotransferase (ALT) 28 U/L Normal 5-50 [facility] Comment on above: Performed By: #### P T, PTT, AMYL, CMP, LIPA, PHOS ####[place] [phone]#### TRANSF ####[facility] [place] [phone] Albumin 3.4 g/dL Low 3.5-5.0 [facility] Comment on above: Performed By: #### P T, PTT, AMYL, CMP, LIPA, PHOS ####[place] [phone]#### TRANSF ####[facility] [address] [place] [address] Alkaline phosphatase (ALP) 108 U/L Normal 40-150 [facility] Comment on above: Performed By: #### P T, PTT, AMYL, CMP, LIPA, PHOS ####[place] [address]#### TRANSF ####[place] [address] Anion gap 16 mmol/L Normal 9-18 [facility] Comment on above: Performed By: #### P T, PTT, AMYL, CMP, LIPA, PHOS ####[place] [address]#### TRANSF ####[place] [address] Aspartate aminotransferase (AST) 23 U/L Normal 7-40 [facility] Comment on above: Performed By: #### P T, PTT, AMYL, CMP, LIPA, PHOS ####[place] [address]#### TRANSF ####[place] [address] Bilirubin (total) 0.2 mg/dL Normal 0.0-1.5 [facility] [place] Comment on above: Performed By: #### P T, PTT, AMYL, CMP, LIPA, PHOS ####[place] [address]#### TRANSF ####[place] [address] Calcium 9.2 mg/dL Normal 8.5-10.5 [facility] Comment on above: Performed By: #### P T, PTT, AMYL, CMP, LIPA, PHOS ####[place] [address]#### TRANSF ####[address] [place] [phone] Chloride 103 mmol/L Normal 98-110 [facility] Comment on above: Performed By: #### P T, PTT, AMYL, CMP, LIPA, PHOS ####[place] [address]#### TRANSF ####[place] [address] CO2 24 mmol/L Normal 23-32 [facility] Comment on above: Performed By: #### P T, PTT, AMYL, CMP, LIPA, PHOS ####[place] [address]#### TRANSF ####[place] [address] Creatinine 0.54 mg/dL Low 0.70-1.40 [facility] Comment on above: Performed By: #### P T, PTT, AMYL, CMP, LIPA, PHOS ####[place] [address]#### TRANSF ####[place] [address] eGFR (non-black) mL/min/{1.73_m2} Normal >60 [facility] Comment on above: Performed By: #### P T, PTT, AMYL, CMP, LIPA, PHOS ####[place] [address]#### TRANSF ####[place] [address] Glucose mass conc 208 mg/dL High 65-100 [facility] [place] Comment on above: Performed By: #### P T, PTT, AMYL, CMP, LIPA, PHOS ####[place] [address]#### TRANSF ####[address], [place] [phone] Potassium molar conc 4.3 mmol/L Normal 3.5-5.0 [facility] Comment on above: Performed By: #### P T, PTT, AMYL, CMP, LIPA, PHOS ####[place] [address]#### TRANSF ####[place] [address] Protein 7.3 g/dL Normal 6.0-8.4 [facility] Comment on above: Performed By: #### P T, PTT, AMYL, CMP, LIPA, PHOS ####[place] [address]#### TRANSF ####[place] [address] Sodium 143 mmol/L Normal 135-146 [facility] Comment on above: Performed By: #### P T, PTT, AMYL, CMP, LIPA, PHOS ####[place] [address]#### TRANSF ####[place] [address] Urea nitrogen 16 mg/dL Normal 10-25 [facility] Comment on above: Performed By: #### P T, PTT, AMYL, CMP, LIPA, PHOS ####[place] [address]#### TRANSF ####[place] [address] Magnesiumon 10-06-2017 Magnesium 2.0 mg/dL Normal 1.7-2.6 [facility] Comment on above: Performed By: #### P T, PTT, AMYL, CMP, LIPA, PHOS ####[place] [address]#### TRANSF ####[place] [address] [place], [place] [phone] NURSING PROGon 10-06-2017 NURSING PROG HNO ID: [id number] thor: Pramod (Rn) MOUSTAPHA Mckennaervice: (none)Author Type: Registered NurseType: Nursing Progress NoteFiled: 10/06/2017 6:57 PMNote Text: Nursing Progress NotePatient Name: Rocio HayesN: [id number] Location: [place] [address]/[id number]-[id number] ____Daily Note:10/06/17 0800 (late entry)- Patient is [...] to 40/hr at approximately to possibly assisted SAIMA Andrade, is aware. Call light and belongings are withinreach.This note was completed by: Pramod Mckenna RN [facility] NURSING PROG HNO ID: [id number] thor: Jennifer Humphries (Rn) Clayton Websterice: (none)Author Type: Registered NurseType: Nursing Progress NoteFiled: 10/06/2017 6:15 AMNote Text: Nursing Progress NotePatient Name: Rocio JacksonN: [id number] Location: [place] [address]/EI-HE1I-80 ____ Text page sent to surgical technologist to notify again that pt had [id number] emesis of bile (no tube feed color in any emesis tonight).This note was completed by: Jennifer Webster RN [facility] NURSING PROG O ID: [id number] thor: Jennifer Humphries (Rn) MOUSTAPHA Websterervice: (none)Author Type: Registered NurseType: Nursing Progress NoteFiled: 10/06/2017 3:17 AMNote Text: Nursing Progress NotePatient Name: Rocio JacksonN: [id number] Location: [address]-OQ3G-45 ____ Pt with two episodes of emesis [...] note was completed by: Jennifer Webster RN [facility] NUTRITIONon 10-06-2017 NUTRITION HNO ID: [id number] thor: Alise Segura) BarsaService: Nutrition TherapyAuthor Type: Registered DietitianType: NutritionFiled: 10/06/2017 [...] 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 /, who wasadmitted to the SICU for postoperative [...] 81 kgResting Metabolic Rate: 1599Estimated kilocalorie needs: 1773-6885 kilocalories determined by 20-25kcal/kgEstimated protein needs: 105-138 grams determined by 1.3-1.7 g/kg DosingweightEstimated fluid needs: 9404-5010 milliliters based on 1 mL per kcalNUTRITION [...] lb 12.3 oz) SpO2 96% BMI 29.77 kg/z9Xbqmky Labs GLUC 208*BUN 16CREAT 0.54*NA 143K 4.3CHLOR [...] (ROXICODONE) 5 mg ORAL q 4 H VMAvozufd-lskpkmgf-ekiyfux 2 capsule cap(s) (CREON 24) 2 capsule ORAL TID wMEALSphenol 1 [place] (CHLORASEPTIC) 1 [place] MUCOUS MEMBRANE (TOPICAL MOUTH ANDTHROAT) q 2 [...] mg INTRAVENOUS q 6 H PRNIntake/Output 10/02/17 07 - 10/03/17 0659 10/03/17 0700 - 10/04/17 0659 002786 - 10/05/17 0659 10/05/17 07 - 10/06/17 0659 10/06/17 07 -10/07/17 0659 Intake (ml) 591 2415 2778 [...] Lopez RD, LD PATIENT NAME: Rocio JacksonDATE: October 06, 2017 : 9:36 AM PAGER: For further assistance and weekends please page theGroup Pager -[phone] [facility] PROGRESSon 10-06-2017 PROGRESS HNO ID: [id number] thor: Michael Cedillo) AugustinService: General SurgeryAuthor Type: PhysicianType: Progress NotesFiled: 10/06/2017 6:29 PMNote Text:SURGICAL SERVICES PROGRESS NOTENAME: Rocio JacksonMRN: [id number]: 10/06/2017Time: 10:09 JUDIE DATE: 09/30/20175 Days Post-OpProcedure(s) [...] on POD 3 nml, removed. Transferred [facility]?Large volume of emesis past 24 hours [...] IPCs, SQH- Continue care on RNF; will begin disposition planning todaySubjective:AFVSSBilious emesis overnight (2L past 24 hours)No evidence of TF in emesis per nursingBM x4 recordedPHYSICAL EXAM:GENERAL: no acute distressABDOMEN: soft, nontender, mildly distended. Incision c/d/i. [place] drainingyellow-red urine.BP 147/86 Pulse 90 Temp 37.1 ?C (98.7 ?F) (Oral) Resp 17 Ht 172.7cm (5' 7.99 ) Wt 88.8 kg (195 lb 12.3 oz) SpO2 96% BMI 29.77 kg/u1Qngtol/Output Summary (Last 24 hours) at 10/06/17 1008Last [...] values in this interval not displayed.CoagsRecent Labs 5 2 3 08/15/18205APTT 25.9 24.9 -- -- 39.8* 31.6INR 1.2 1.1 1.0 2.0* 2.0* 1.5*Imaging:KUB (10/05/17):IMPRESSION:No dilated loops of bowel. ?Postsurgical changes.Salvador Birmingham, MDResident General Surgery Normal [facility] Phosphoruson 10-06-2017 Phosphate 3.2 mg/dL Normal 2.5-4.5 [facility] Comment on above: Performed By: #### P T, PTT, AMYL, CMP, LIPA, PHOS ####[facility] [place], [place] [phone]#### TRANSF ####[facility] [place], [place] [phone] XR ABDOMEN 1V SPECIFYon 09-27 XR ABDOMEN [...] indeterminate etiology.IMPRESSION:No dilated loops of bowel. Postsurgical changes.Railroad Brake Operator: PSCShefali Transcribe Date/Time: Oct 06 2017 6:41ADictated by : MELCHOR OSBORN MDThis examination was interpreted and the report reviewed and electronically signed by: MELCHOR OSBORN MD on Oct 06 2017 6:45AM [id number] Normal [facility] CBC and Differentialon 10-05 Abs Baso <0.03 Normal <0.11 [facility] Comment on above: Performed By: #### P T, PTT, AMYL, CMP, LIPA, PHOS ####[place] [address]#### TRANSF ####[place] [address] [place] [phone] Abs Vance 0.47 k/uL Normal <0.87 [facility] Comment on above: Performed By: #### P T, PTT, AMYL, CMP, LIPA, PHOS ####[place] [address]#### TRANSF ####[place] [phone] Abs Neut 3.08 k/uL Normal 1.45-7.50 [facility] Comment on above: Performed By: #### P T, PTT, AMYL, CMP, LIPA, PHOS ####[place] [address]#### TRANSF ####[place] [address] Basophils/100 WBC Auto (Bld) 0.2 % Normal [facility] Comment on above: Performed By: #### P T, PTT, AMYL, CMP, LIPA, PHOS ####[place] [address]#### TRANSF ####[address] [place] [phone] DTYPE Auto Diff Normal [facility] Comment on above: Performed By: #### P T, PTT, AMYL, CMP, LIPA, PHOS ####[place] [address]#### TRANSF ####[place] [phone] Eosinophils 0.23 10*3/uL Normal <0.46 [facility] Comment on above: Performed By: #### P T, PTT, AMYL, CMP, LIPA, PHOS ####[place] [address]#### TRANSF ####[place] [phone] Eosinophils/100 leukocytes 4.1 % Normal [facility] Comment on above: Performed By: #### P T, PTT, AMYL, CMP, LIPA, PHOS ####[place] [address]#### TRANSF ####[place] [phone] Erythrocyte distribution width Auto Ratio (RBC) 16.3 % High 11.5-15.0 [facility] Comment on above: Performed By: #### P T, PTT, AMYL, CMP, LIPA, PHOS ####[place] [address]#### TRANSF ####[place] [phone] Erythrocytes (RBC) 4.00 10*6/uL Low 4.20-6.00 [facility] Comment on above: Performed By: #### P T, PTT, AMYL, CMP, LIPA, PHOS ####[place] [address]#### TRANSF ####[place] [phone] Hematocrit (HCT) 32.0 % Low 39.0-51.0 [facility] Comment on above: Performed By: #### P T, PTT, AMYL, CMP, LIPA, PHOS ####[place] [address]#### TRANSF ####[place] [phone] Hemoglobin mass conc (Bld) 10.2 g/dL Low 13.0-17.0 [facility] Comment on above: Performed By: #### P T, PTT, AMYL, CMP, LIPA, PHOS ####[place] [address]#### TRANSF ####[place] [phone] Lymphocytes 1.82 10*3/uL Normal 1.00-4.00 [facility] Comment on above: Performed By: #### P T, PTT, AMYL, CMP, LIPA, PHOS ####[place] [address]#### TRANSF ####[place] [address] Lymphocytes/100 leukocytes 32.4 % Normal [facility] Comment on above: Performed By: #### P T, PTT, AMYL, CMP, LIPA, PHOS ####[place] [address]#### TRANSF ####[place] [phone] MCH 25.5 pG Low 26.0-34.0 [facility] Comment on above: Performed By: #### P T, PTT, AMYL, CMP, LIPA, PHOS ####[place] [address]#### TRANSF ####[place] [phone] MCHC mass conc (RBC) 31.9 g/dL Normal 30.5-36.0 [facility] Comment on above: Performed By: #### P T, PTT, AMYL, CMP, LIPA, PHOS ####[address]#### TRANSF ####[place] [phone] MCV 80.0 fL Normal 80.0-100.0 [facility] Comment on above: Performed By: #### P T, PTT, AMYL, CMP, LIPA, PHOS ####[address]#### TRANSF ####[place] [address] Monocytes/100 leukocytes 8.4 % Normal [facility] Comment on above: Performed By: #### P T, PTT, AMYL, CMP, LIPA, PHOS ####[address]#### TRANSF ####[place] [phone] Neutrophils/100 WBC Auto (Bld) 54.9 % Normal [facility] Comment on above: Performed By: #### P T, PTT, AMYL, CMP, LIPA, PHOS ####[address]#### TRANSF ####[place] [phone] Platelet mean volume (PMV) 9.3 fL Normal 9.0-12.7 [facility] Comment on above: Performed By: #### P T, PTT, AMYL, CMP, LIPA, PHOS ####[place] [address]#### TRANSF ####[address] [phone] Platelets 314 10*3/uL Normal 150-400 [facility] Comment on above: Performed By: #### P T, PTT, AMYL, CMP, LIPA, PHOS ####[address] [phone]#### TRANSF ####[address] [phone] WBC (Leukocytes) 5.61 10*3/uL Normal 3.70-11.00 [facility] Comment on above: Performed By: #### P T, PTT, AMYL, CMP, LIPA, PHOS ####[phone]#### TRANSF ####[address] [phone] CONSULTon 10-05-2017 CONSULT HNO ID: [id number] thor: Damaris Rojasice: EndocrinologyAuthor Type: PhysicianType: ConsultsFiled: 10/05/2017 6:01 PMNote Text:ENDOCRINOLOGY INITIAL CONSULTPATIENT NAME: Rocio JacksonMRN: [id number] DATE: 10/05/2017SERVICE TIME: 5:01 PMREASON FOR CONSULT: DM Type 2REQUESTING PHYSICIAN:Michael Jolley [facility] CARE PHYSICIAN: Adriane Nichols, DOSubjectiveHISTORY OF PRESENT [...] sees primary caredoctor for DM management in [facility]. He was on oral agentssaxagliptin 5 mg [...] Date- ANGIOPLASTY HX 05/15/2011 2 stents s/p [place];[facility]- CHOLECYSTECTOMY 08/11/2017 [facility]- PICC LINE INSERT/CONSULT 08/16/2017No family history on [...] 650 mg ORAL q 6 H Allegra Garcia)Miglionico 650 mg at 10/05/17 1549oxyCODONE 5 mg oral liquid (ROXICODONE) 5 mg ORAL q 4 H PRN Yrn Cedillo)Gonzalo 5 mg at 10/05/17 4554uddsqy-njqrztpf-hhwuzln 2 capsule cap(s) (CREON 24) 2 capsule ORAL TID wMEALS Flynn (Res) MD Jane 2 capsule at 10/04/17 1740phenol 1 [place] (CHLORASEPTIC) 1 [place] MUCOUS MEMBRANE (TOPICAL MOUTH ANDTHROAT) q 2 H PRN Kolby (Res) Kevin 1 [place] at 10/02/17 13601.9% NaCl 2-10 mL 2-10 mL INTRAVENOUS q 12 H Mundo (Res)(Hist) Sideris5 mL at 10/05/17 0805naloxone 0.2 mg [...] ml 2 g INTRAVENOUSPRN(NO DISPENSE) Mundo (Res)(Hist) Siderisondansetron (PF) 4 mg injection (ZOFRAN) 4 mg INTRAVENOUS q 6 H PRNAntonaaron (Res)(Hist) Sideris 4 mg at 10/05/17 1054insulin lispro injection (rapid acting) (HumaLOG) SUBCUTANEOUS q 6 HAntonios (Res)(Hist) Sideris 1 Units at 10/05/17 1213heparin 5,000 Units injection 5,000 Units SUBCUTANEOUS q 12 H Mundo(Res)(Hist) Sideris 5,000 Units at 10/05/17 0805metoclopramide HCl 10 mg injection (REGLAN) 10 mg INTRAVENOUS q 6 H PRNAntonios (Res)(Hist) Sideris 10 mg at 10/05/17 1142Allergies As of Date: 09/16/2017(No Known Allergies)Fully Assessed 03/20/2018General: no fever, chills, but has lost over [...] lb 12.3 oz) SpO2 96% BMI 29.77 kg/e4Lxbzhhv: Fatigued appearing, alert, in no acute distress, [...] AM 147 (A)10/02/2017 11:40 AM 176 (A) H110/02/2017 6:11 PM 150 (A)10/03/2017 1:35 AM 129 (A)10/03/2017 6:24 AM 144 (A)10/03/2017 12:05 PM 230 (A) 19/01/2018 5:34 PM 203 (A) 19/01/2018 11:57 PM 133 (A)10/04/2017 6:32 AM 153 (A) 09/02/2018 11:59 AM 183 (A) 09/02/2018 5:21 PM [...] 6 hours-clear liquid diet-glucose monitoring every 6 hourswill followDoASHLEY MarshIGNATURE: Damaris Aguilar, MDDATE: October 05, 2017TIME: 5:01 PM Normal [facility] Comp Metabolic Panelon 10-05 Alanine aminotransferase (ALT) 27 U/L Normal 5-50 [facility] Comment on above: Performed By: #### P T, PTT, AMYL, CMP, LIPA, PHOS ####[facility] [place], [place] [phone]#### TRANSF ####[facility] [address] [place], [place] [phone] Albumin 3.3 g/dL Low 3.5-5.0 [facility] Comment on above: Result Comment: Revi ewed Performed By: #### P T, PTT, AMYL, CMP, LIPA, PHOS ####[place] [address]#### TRANSF ####[place] [phone] Alkaline phosphatase (ALP) 107 U/L Normal 40-150 [facility] Comment on above: Performed By: #### P T, PTT, AMYL, CMP, LIPA, PHOS ####[place] [address]#### TRANSF ####[place] [phone] Anion gap 12 mmol/L Normal 9-18 [facility] Comment on above: Performed By: #### P T, PTT, AMYL, CMP, LIPA, PHOS ####[place] [address]#### TRANSF ####[place] [phone] Aspartate aminotransferase (AST) 23 U/L Normal 7-40 [facility] Comment on above: Performed By: #### P T, PTT, AMYL, CMP, LIPA, PHOS ####[place] [address]#### TRANSF ####[place] [phone] Bilirubin (total) 0.2 mg/dL Normal 0.0-1.5 [facility] [place] Comment on above: Performed By: #### P T, PTT, AMYL, CMP, LIPA, PHOS ####[place] [address]#### TRANSF ####[place] [phone] Calcium 8.9 mg/dL Normal 8.5-10.5 [facility] Comment on above: Performed By: #### P T, PTT, AMYL, CMP, LIPA, PHOS ####[place] [address]#### TRANSF ####[place] [phone] Chloride 103 mmol/L Normal 98-110 [facility] Comment on above: Performed By: #### P T, PTT, AMYL, CMP, LIPA, PHOS ####[place] [address]#### TRANSF ####[place] [phone] CO2 27 mmol/L Normal 23-32 [facility] Comment on above: Performed By: #### P T, PTT, AMYL, CMP, LIPA, PHOS ####[place] [address]#### TRANSF ####[place] [phone] Creatinine 0.56 mg/dL Low 0.70-1.40 [facility] Comment on above: Performed By: #### P T, PTT, AMYL, CMP, LIPA, PHOS ####[place] [address]#### TRANSF ####[place] [phone] eGFR (non-black) mL/min/{1.73_m2} Normal >60 [facility] Comment on above: Performed By: #### P T, PTT, AMYL, CMP, LIPA, PHOS ####[place] [address]#### TRANSF ####[place] [phone] Glucose mass conc 172 mg/dL High 65-100 [facility] [place] Comment on above: Performed By: #### P T, PTT, AMYL, CMP, LIPA, PHOS ####[place] [address]#### TRANSF ####[place] [phone] Potassium molar conc 4.6 mmol/L Normal 3.5-5.0 [facility] Comment on above: Performed By: #### P T, PTT, AMYL, CMP, LIPA, PHOS ####[place] [address]#### TRANSF ####[place] [phone] Protein 6.5 g/dL Normal 6.0-8.4 [facility] Comment on above: Performed By: #### P T, PTT, AMYL, CMP, LIPA, PHOS ####[place] [address]#### TRANSF ####[place] [phone] Sodium 142 mmol/L Normal 135-146 [facility] Comment on above: Performed By: #### P T, PTT, AMYL, CMP, LIPA, PHOS ####[place] [address]#### TRANSF ####[place] [phone] Urea nitrogen 14 mg/dL Normal 10-25 [facility] Comment on above: Performed By: #### P T, PTT, AMYL, CMP, LIPA, PHOS ####[place] [address]#### TRANSF ####[place] [phone] Magnesiumon 10-05-2017 Magnesium 2.1 mg/dL Normal 1.7-2.6 [facility] Comment on above: Performed By: #### P T, PTT, AMYL, CMP, LIPA, PHOS ####[facility] [place], [place] [phone]#### TRANSF ####[facility] [address] [place], [place] [phone] NURSING PROGon 10-05-2017 NURSING PROG HNO ID: [id number] thor: Saima Kramer (Rn) Debra, RNService: (none)Author Type: Registered NurseType: Nursing Progress NoteFiled: 10/05/2017 3:52 PMNote Text: Nursing Progress NotePatient Name: Rocio Boudreaux: [id number] Location: [place] [id number] ____Daily Note:Pt sitting on edge of bed [...] was completed by: Saima Richardson RN Normal [facility] PROGRESSon 10-05-2017 PROGRESS HNO ID: [id number] thor: Michael Cedillo) AugustinService: General SurgeryAuthor Type: PhysicianType: Progress NotesFiled: 10/05/2017 6:45 PMNote Text:SURGICAL SERVICES PROGRESS NOTENAME: Rocio JacksonMRN: [id number]: 10/05/2017Time: 7:15 JUDIE DATE: 09/30/20175 Days Post-OpProcedure(s) [...] 10/05/17 0659 10/05/17 07 - 10/06/17 0659Shift 2308-7611 9748-7690 1853-9436 24 Hour Total 3190-7692 3431-19945722-5264 24 Hour TotalINTAKE PO 770 5740 590 5810 PO 852 850 6813 Tube Feed Intake (GI Feed/Drain 09/30/17 Small Bore Feeding Right Naris10 Fr) 240 500 598 0249 Irrigants 5 115 180 300 Irrigant/Flush Amount In (Drain/Tube [facility]3) 5 5 10 Irrigant/Flush Amount In (GI Feed/Drain 09/30/17 Small Bore FeedingRight Naris 10 Fr) 110 180 290 Shift Total 775 1285 718 2778OUTPUT Urine 058 708 0859 3075 Void (ml) 525 1850 2375 Tube [...] x 1 x 5 x Shift Total 938 983 1151 3425Weight (kg) 88.8 88.8 88.8 88.8 88.8 88.8 88.8 88.8DIAGNOSTIC STUDIES:CBC:Hemoglobin (g/dL)Date Value10/05/2017 10.2 Hematocrit (%)Date Value10/05/2017 32.0 WBC (k/uL)Date Value10/05/2017 5.61 Platelet Count (k/uL)Date Value10/05/2017 314 CMP:BMP:Glucose 172 10/05/2017BUN 14 10/05/2017Creatinine 0.56 10/05/2017Sodium 142 10/05/2017Potassium 4.6 10/05/2017Chloride 103 10/05/2017CO2 27 10/05/2017Protein, Total 6.5 10/05/2017Albumin 3.3 10/05/2017Calcium 8.9 10/05/2017Alkaline Phosphatase 107 10/05/2017Bilirubin, Total 0.2 10/05/2017AST 23 10/05/2017ALT 27 10/05/2017NURY Mejia II general surgeryPager [phone] - 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Pager [phone] - PersonalSTAFF NOTEI have independently seen and examined the patient today. I haveindependently reviewed all the imaging and the labs. I agree with keycomponents of the resident's note above. Care plan and decision making hasbeen discussed.Doing well, continued DGETolerating tube feedsClearsMichael Jolley MD, MPH, FACSGeneral/Trauma/HPB SurgeryPager: [phone] Cell: [id number] 2017 Normal [facility] Phosphoruson 10-05-2017 Phosphate 3.6 mg/dL Normal 2.5-4.5 [facility] Comment on above: Performed By: #### P T, PTT, AMYL, CMP, LIPA, PHOS ####[place] [address]#### TRANSF ####[phone] CBC and Differentialon 10-04 Abs Baso <0.03 Normal <0.11 [facility] Comment on above: Performed By: #### P T, PTT, AMYL, CMP, LIPA, PHOS ####[place] [address]#### TRANSF ####[place] [phone] Abs Vance 0.32 k/uL Normal <0.87 [facility] Comment on above: Performed By: #### P T, PTT, AMYL, CMP, LIPA, PHOS ####[place] [address]#### TRANSF ####[place] [phone] Abs Neut 2.35 k/uL Normal 1.45-7.50 [facility] Comment on above: Performed By: #### P T, PTT, AMYL, CMP, LIPA, PHOS ####[place] [address]#### TRANSF ####[place] [phone] Basophils/100 WBC Auto (Bld) 0.2 % Normal [facility] Comment on above: Performed By: #### P T, PTT, AMYL, CMP, LIPA, PHOS ####[place] [address]#### TRANSF ####[place] [address] [place]inal[place] [phone] DTYPE Auto Diff Normal [facility] Comment on above: Performed By: #### P T, PTT, AMYL, CMP, LIPA, PHOS ####[place] [address]#### TRANSF ####[address] AvReginald Ville [phone] Eosinophils 0.25 10*3/uL Normal <0.46 [facility] Comment on above: Performed By: #### P T, PTT, AMYL, CMP, LIPA, PHOS ####[place] [address]#### TRANSF ####[place] [phone] Eosinophils/100 leukocytes 6.0 % Normal [facility] Comment on above: Performed By: #### P T, PTT, AMYL, CMP, LIPA, PHOS ####[place] [address]#### TRANSF ####[place] [address] [address] [place] [phone] Erythrocyte distribution width Auto Ratio (RBC) 16.3 % High 11.5-15.0 [facility] Comment on above: Performed By: #### P T, PTT, AMYL, CMP, LIPA, PHOS ####[place] [address]#### TRANSF ####[place] [address] [address] AveCJennifer [place] [phone] Erythrocytes (RBC) 3.42 10*6/uL Low 4.20-6.00 [facility] Comment on above: Performed By: #### P T, PTT, AMYL, CMP, LIPA, PHOS ####[place] [address]#### TRANSF ####[place] [phone] Hematocrit (HCT) 27.0 % Low 39.0-51.0 [facility] Comment on above: Performed By: #### P T, PTT, AMYL, CMP, LIPA, PHOS ####[place] [address]#### TRANSF ####[place] [phone] Hemoglobin mass conc (Bld) 8.7 g/dL Low 13.0-17.0 [facility] Comment on above: Performed By: #### P T, PTT, AMYL, CMP, LIPA, PHOS ####[place] [address]#### TRANSF ####[place] [phone] Lymphocytes 1.27 10*3/uL Normal 1.00-4.00 [facility] Comment on above: Performed By: #### P T, PTT, AMYL, CMP, LIPA, PHOS ####[place] [address]#### TRANSF ####[place] [phone] Lymphocytes/100 leukocytes 30.2 % Normal [facility] Comment on above: Performed By: #### P T, PTT, AMYL, CMP, LIPA, PHOS ####[place] [address]#### TRANSF ####[place] [phone] MCH 25.4 pG Low 26.0-34.0 [facility] Comment on above: Performed By: #### P T, PTT, AMYL, CMP, LIPA, PHOS ####[place] [address]#### TRANSF ####[address] AvReginald Ville [phone] MCHC mass conc (RBC) 32.2 g/dL Normal 30.5-36.0 [facility] Comment on above: Performed By: #### P T, PTT, AMYL, CMP, LIPA, PHOS ####[place] [address]#### TRANSF ####[place] [phone] MCV 78.9 fL Low 80.0-100.0 [facility] Comment on above: Performed By: #### P T, PTT, AMYL, CMP, LIPA, PHOS ####[place] [address]#### TRANSF ####[place] [phone] Monocytes/100 leukocytes 7.6 % Normal [facility] Comment on above: Performed By: #### P T, PTT, AMYL, CMP, LIPA, PHOS ####[place] [address]#### TRANSF ####[place] [phone] Neutrophils/100 WBC Auto (Bld) 56.0 % Normal [facility] Comment on above: Performed By: #### P T, PTT, AMYL, CMP, LIPA, PHOS ####[place] [address]#### TRANSF ####[phone] Platelet mean volume (PMV) 9.2 fL Normal 9.0-12.7 [facility] Comment on above: Performed By: #### P T, PTT, AMYL, CMP, LIPA, PHOS ####[place] [address]#### TRANSF ####[phone] Platelets 246 10*3/uL Normal 150-400 [facility] Comment on above: Performed By: #### P T, PTT, AMYL, CMP, LIPA, PHOS ####[place] [address]#### TRANSF ####[phone] WBC (Leukocytes) 4.20 10*3/uL Normal 3.70-11.00 [facility] Comment on above: Performed By: #### P T, PTT, AMYL, CMP, LIPA, PHOS ####[place] [address]#### TRANSF ####[place] [phone] CONSULT PROGon 10-04-2017 CONSULT PROG HNO ID: [id number] thor: Brock Yao: Pain ManagementAuthor Type: Physician AssistantType: Consult Progress NoteFiled: 10/04/2017 8:53 AMNote Text:PERIPHERAL NERVE CATHETER PROGRESS NOTEPATIENT NAME: Rocio JacksonMRN: [id number] DATE: 10/04/2017SERVICE TIME: 8:36 AMPRIMARY SERVICE:?General Surgery??ASSESSMENT [...] or warmth.No nausea or vomiting.Pain adequately controlled 09/05.?Patient given SQ Heparin 5000 units Q 12 [...] placed: Day of surgery??MEDICATIONS:??Epidu ral Medications and PLASTIC OUTFITTER SettingsBupivacaine 0.1% + Dilaudid??Basal rate: 4?mL/hr.Patient Demand Bolus: 3?mL.Lockout interval: 4?minutesCurrent hospital medications:oxyCODONE IR 5 mg tab(s) (ROXICODONE) 5 mg ORAL q 4 H ANYrbjoat-ukcbkufm-rmbffht 2 capsule cap(s) (CREON 24) 2 capsule ORAL TID wMEALSacetaminophen 650 mg tab(s) (TYLENOL) 650 mg ORAL q 6 Hdocusate sodium 100 mg cap(s) (COLACE) 100 mg ORAL BIDatorvastatin 40 mg tab(s) (LIPITOR) 40 mg ORAL/FEEDING TUBE AT BEDTIMEphenol 1 [place] (CHLORASEPTIC) 1 [place] MUCOUS MEMBRANE (TOPICAL MOUTH ANDTHROAT) q 2 [...] mg ORAL q 8 HHYDROmorphone 0.5 mg/mL PLASTIC OUTFITTER CLINICIAN DOSE 0.2 mg 0.2 mg INTRAVENOUS [...] normal?Thoracostomy Tube: NoGASTROINTESTINAL EXAM:?Bowel Sounds: hypoactiveMS BLE /, sensation BLE grossly intactDATA:Lab ResultsAPTT 25.9 09/30/2017PT Sec 12.2 09/30/2017PT INR 1.2 09/30/2017Hemoglobin 8.7 10/04/2017Hematocrit 27.0 10/04/2017Platelet Count 246 10/04/2017Discussed the patient?s progress and plan of care with Dr. Sánchez.SIGNATURE: Brock Dixon PA-C PATIENT NAME: Rocio VizcarraTE: October 04, 2017 : 8:36 AM PAGER/CONTACT #: [place] [phone] Normal [facility] Comp Metabolic Panelon 10-04 Alanine aminotransferase (ALT) 23 U/L Normal 5-50 [facility] Comment on above: Performed By: #### P T, PTT, AMYL, CMP, LIPA, PHOS ####[phone]#### TRANSF ####[place] [phone] Albumin 2.3 g/dL Low 3.5-5.0 [facility] Comment on above: Performed By: #### P T, PTT, AMYL, CMP, LIPA, PHOS ####[place] [phone]#### TRANSF ####[place] [phone] Alkaline phosphatase (ALP) 83 U/L Normal 40-150 [facility] Comment on above: Performed By: #### P T, PTT, AMYL, CMP, LIPA, PHOS ####[place] [address]#### TRANSF ####[place] [phone] Anion gap 11 mmol/L Normal 9-18 [facility] Comment on above: Performed By: #### P T, PTT, AMYL, CMP, LIPA, PHOS ####[place] [address]#### TRANSF ####[place] [address] Aspartate aminotransferase (AST) 19 U/L Normal 7-40 [facility] Comment on above: Performed By: #### P T, PTT, AMYL, CMP, LIPA, PHOS ####[place] [address]#### TRANSF ####[place] [phone] Bilirubin (total) 0.2 mg/dL Normal 0.0-1.5 [facility] [place] Comment on above: Performed By: #### P T, PTT, AMYL, CMP, LIPA, PHOS ####[place] [address]#### TRANSF ####[place] [phone] Calcium 8.1 mg/dL Low 8.5-10.5 [facility] Comment on above: Performed By: #### P T, PTT, AMYL, CMP, LIPA, PHOS ####[place] [address]#### TRANSF ####[place] [phone] Chloride 103 mmol/L Normal 98-110 [facility] Comment on above: Performed By: #### P T, PTT, AMYL, CMP, LIPA, PHOS ####[place] [address]#### TRANSF ####[place] [phone] CO2 25 mmol/L Normal 23-32 [facility] Comment on above: Performed By: #### P T, PTT, AMYL, CMP, LIPA, PHOS ####[place] [address]#### TRANSF ####[place] [phone] Creatinine 0.54 mg/dL Low 0.70-1.40 [facility] Comment on above: Performed By: #### P T, PTT, AMYL, CMP, LIPA, PHOS ####[place] [address]#### TRANSF ####[place] [phone] eGFR (non-black) mL/min/{1.73_m2} Normal >60 [facility] Comment on above: Performed By: #### P T, PTT, AMYL, CMP, LIPA, PHOS ####[address]#### TRANSF ####[phone] Glucose mass conc 146 mg/dL High 65-100 [facility] [place] Comment on above: Performed By: #### P T, PTT, AMYL, CMP, LIPA, PHOS ####[place] [address]#### TRANSF ####[place] [id number] Potassium molar conc 4.0 mmol/L Normal 3.5-5.0 [facility] Comment on above: Performed By: #### P T, PTT, AMYL, CMP, LIPA, PHOS ####[place] [address]#### TRANSF ####[place] [id number] Protein 5.6 g/dL Low 6.0-8.4 [facility] Comment on above: Performed By: #### P T, PTT, AMYL, CMP, LIPA, PHOS ####[place] [address]#### TRANSF ####[place] [phone] Sodium 139 mmol/L Normal 135-146 [facility] Comment on above: Performed By: #### P T, PTT, AMYL, CMP, LIPA, PHOS ####[place] [address]#### TRANSF ####[place] [id number] Urea nitrogen 16 mg/dL Normal 10-25 [facility] Comment on above: Performed By: #### P T, PTT, AMYL, CMP, LIPA, PHOS ####[place] [address]#### TRANSF ####[place] [phone] Magnesiumon 10-04-2017 Magnesium 1.8 mg/dL Normal 1.7-2.6 [facility] Comment on above: Performed By: #### P T, PTT, AMYL, CMP, LIPA, PHOS ####[place] [address]#### TRANSF ####[place] [phone] NURSING PROGon 10-04-2017 NURSING PROG HNO ID: [id number] thor: Homa (Rn) Bonnie, RNService: (none)Author Type: Registered NurseType: Nursing Progress NoteFiled: 10/05/2017 5:27 AMNote Text: Nursing Progress NotePatient Name: Rocio Boudreaux: [id number] Location: [place] [id number] ____Daily Note:2049: Pt had one 50cc emesis. Medicated with [id number]: Pt reassessed. States nausea has subsided. Will continue to monitor.0455: Pt had 300cc green emesis episode. Medicated with zofran. Text pagesent to SROC to make aware.0525: SROC returned called. States day team will be rounding soon. Willcontinue to monitor.This note was completed by: Homa Nicole, RN [facility] PROGRESSon 10-04-2017 PROGRESS HNO ID: [id number] thor: Mela Carroll: General SurgeryAuthor Type: PhysicianType: Progress NotesFiled: 10/04/2017 [...] lb 12.3 oz) SpO2 94% BMI 29.77 kg/w3XEHKMJW: no acute distressABDOMEN: soft, nontender, mildly distended. Incision c/d/i. [place]anc[place] drainingyellow-red urine.Labs:CBC, BMP, MG, PHOSRecent Labs 10/03/1805WBC 4.20 5.92 6.15 6.47 -- 8.38HB 8.7* [...] 0.5LACT -- -- -- -- 2.3*CoagsRecent Labs [id number] 620 276535YDOP 25.9 24.9 -- -- 39.8* 31.6INR 1.2 1.1 1.0 2.0* 2.0* 1.5*Current Medications:Current hospital medications:morphine 1-2 mg injection 1-2 mg INTRAVENOUS q 6 H PRNoxyCODONE 5 mg oral liquid (ROXICODONE) 5 mg ORAL q 4 H TCAfvpiti-cpfgsvjw-lhsbdzm 2 capsule cap(s) (CREON 24) 2 capsule ORAL TID wMEALSacetaminophen 650 mg tab(s) (TYLENOL) 650 mg ORAL q 6 Hdocusate sodium 100 mg cap(s) (COLACE) 100 mg ORAL BIDatorvastatin 40 mg tab(s) (LIPITOR) 40 mg ORAL/FEEDING TUBE AT BEDTIMEphenol 1 [place] (CHLORASEPTIC) 1 [place] MUCOUS MEMBRANE (TOPICAL MOUTH ANDTHROAT) q 2 [...] epidural removalMuriel Perez 2017 1:07 PM Normal [facility] Phosphoruson 10-04-2017 Phosphate 3.5 mg/dL Normal 2.5-4.5 [facility] Comment on above: Performed By: #### P T, PTT, AMYL, CMP, LIPA, PHOS ####[place] [phone]#### TRANSF ####[place] [address] [place], [place] [phone] Amylaseon 10-03-2017 Amylase 44 U/L Normal 0-137 [facility] Comment on above: Performed By: #### P T, PTT, AMYL, CMP, LIPA, PHOS ####[place] [phone]#### TRANSF ####[facility] [address] [place], [place] [phone] Amylase,Body Fluidon 018 Amylase 118 U/L Critically abnormal See Comment [facility] Comment on above: Result Comment: (NOT E)PLEURAL [...] CLSI document C49-A. SAIMA Contreras: Clinical LaboratoryStandards [place]; 2007.3. Kya CL, Angelia SANCHEZ, Nimo DJ. Use of cyst fluid CEA,CA19-9, and amylase for evaluation of pancreatic lesions. ClinicalBiochemistry. 2009;42:0180-6459.This test was developed and its performance characteristicsdetermined by [facility]'s [facility] and[facility] Medicine [place] ([facility]).It has not been cleared or approved by the FDA. [facility] is regulatedunder CLIA as qualified to perform high-complexity testing.This test is used for clinical purposes. It should not be regarded asinvestigational or for research. Performed By: #### P T, PTT, AMYL, CMP, LIPA, PHOS ####[place] [address]#### TRANSF ####[place] [phone] Fluid Type Chandana Howard Drain Normal [facility] Comment on above: Result Comment: LEFT Performed By: #### P T, PTT, AMYL, CMP, LIPA, PHOS ####[place] [phone]#### TRANSF ####[place] [phone] Amylase 53 U/L Critically abnormal See Comment [facility] Comment on above: Result Comment: (NOT E)PLEURAL [...] CLSI document C49-A. SAIMA Contreras: Clinical LaboratoryStandards [place]; 2006.3. Kya MILLER, Angelia SANCHEZ, Nimo DJ. Use of cyst fluid CEA,CA19-9, and amylase for evaluation of pancreatic lesions. ClinicalBiochemistry. 2009;42:8626-9473.This test was developed and its performance characteristicsdetermined by [facility]'s [facility] and[facility] [place] ([facility]).It has not been cleared or approved by the FDA. [facility] is regulatedunder CLIA as qualified to perform high-complexity testing.This test is used for clinical purposes. It should not be regarded asinvestigational or for research. Performed By: #### P T, PTT, AMYL, CMP, LIPA, PHOS ####[address] [phone]#### TRANSF ####[facility] [place], [place] [phone] Fluid Type Chandana Howard Drain Normal [facility] Comment on above: Result Comment: JEANIEH T Performed By: #### P T, PTT, AMYL, CMP, LIPA, PHOS ####[address] [phone]#### TRANSF ####[place] [phone] CBC and Differentialon 10-03 Abs Baso <0.03 Normal <0.11 [facility] Comment on above: Performed By: #### P T, PTT, AMYL, CMP, LIPA, PHOS ####[place] [address]#### TRANSF ####[place] [phone] Abs Vance 0.54 k/uL Normal <0.87 [facility] Comment on above: Performed By: #### P T, PTT, AMYL, CMP, LIPA, PHOS ####[place] [address]#### TRANSF ####[place] [phone] Abs Neut 3.56 k/uL Normal 1.45-7.50 [facility] Comment on above: Performed By: #### P T, PTT, AMYL, CMP, LIPA, PHOS ####[place] [address]#### TRANSF ####[place] [phone] Basophils/100 WBC Auto (Bld) 0.2 % Normal [facility] Comment on above: Performed By: #### P T, PTT, AMYL, CMP, LIPA, PHOS ####[place] [address]#### TRANSF ####[place] [phone] DTYPE Auto Diff Normal [facility] Comment on above: Performed By: #### P T, PTT, AMYL, CMP, LIPA, PHOS ####[place] [address]#### TRANSF ####[place] [address] Eosinophils 0.29 10*3/uL Normal <0.46 [facility] Comment on above: Performed By: #### P T, PTT, AMYL, CMP, LIPA, PHOS ####[place] [address]#### TRANSF ####[place] [address] Eosinophils/100 leukocytes 4.9 % Normal [facility] Comment on above: Performed By: #### P T, PTT, AMYL, CMP, LIPA, PHOS ####[place] [address]#### TRANSF ####[place] [address] Erythrocyte distribution width Auto Ratio (RBC) 16.1 % High 11.5-15.0 [facility] Comment on above: Performed By: #### P T, PTT, AMYL, CMP, LIPA, PHOS ####[place] [address]#### TRANSF ####[place] [address] Erythrocytes (RBC) 3.72 10*6/uL Low 4.20-6.00 [facility] Comment on above: Performed By: #### P T, PTT, AMYL, CMP, LIPA, PHOS ####[place] [address]#### TRANSF ####[place] [address] Hematocrit (HCT) 29.4 % Low 39.0-51.0 [facility] Comment on above: Performed By: #### P T, PTT, AMYL, CMP, LIPA, PHOS ####[place] [address]#### TRANSF ####[phone] Hemoglobin mass conc (Bld) 9.5 g/dL Low 13.0-17.0 [facility] Comment on above: Performed By: #### P T, PTT, AMYL, CMP, LIPA, PHOS ####[place] [address]#### TRANSF ####[place] [phone] Lymphocytes 1.52 10*3/uL Normal 1.00-4.00 [facility] Comment on above: Performed By: #### P T, PTT, AMYL, CMP, LIPA, PHOS ####[place] [address]#### TRANSF ####[place] [phone] Lymphocytes/100 leukocytes 25.7 % Normal [facility] Comment on above: Performed By: #### P T, PTT, AMYL, CMP, LIPA, PHOS ####[place] [address]#### TRANSF ####[place] [phone] MCH 25.5 pG Low 26.0-34.0 [facility] Comment on above: Performed By: #### P T, PTT, AMYL, CMP, LIPA, PHOS ####[place] [address]#### TRANSF ####[place] [phone] MCHC mass conc (RBC) 32.3 g/dL Normal 30.5-36.0 [facility] Comment on above: Performed By: #### P T, PTT, AMYL, CMP, LIPA, PHOS ####[place] [address]#### TRANSF ####[address] AvSam[place] [phone] MCV 79.0 fL Low 80.0-100.0 [facility] Comment on above: Performed By: #### P T, PTT, AMYL, CMP, LIPA, PHOS ####[place] [address]#### TRANSF ####[place] [phone] Monocytes/100 leukocytes 9.1 % Normal [facility] Comment on above: Performed By: #### P T, PTT, AMYL, CMP, LIPA, PHOS ####[place] [address]#### TRANSF ####[phone] Neutrophils/100 WBC Auto (Bld) 60.1 % Normal [facility] Comment on above: Performed By: #### P T, PTT, AMYL, CMP, LIPA, PHOS ####[place] [address]#### TRANSF ####[phone] Platelet mean volume (PMV) 10.0 fL Normal 9.0-12.7 [facility] Comment on above: Performed By: #### P T, PTT, AMYL, CMP, LIPA, PHOS ####[place] [address]#### TRANSF ####[place] [phone] Platelets 225 10*3/uL Normal 150-400 [facility] Comment on above: Performed By: #### P T, PTT, AMYL, CMP, LIPA, PHOS ####[place] [id number] [place], [place] [phone]#### TRANSF ####[facility] [place], [place] [phone] WBC (Leukocytes) 5.92 10*3/uL Normal 3.70-11.00 [facility] Comment on above: Performed By: #### P T, PTT, AMYL, CMP, LIPA, PHOS ####[facility] [place], [place] [phone]#### TRANSF ####[place] [address] [place], [place] [phone] CONSULT PROGon 10-03-2017 CONSULT PROG HNO ID: [id number] thor: Brock Yao: Pain ManagementAuthor Type: Physician AssistantType: Consult Progress NoteFiled: 10/03/2017 9:15 AMNote Text:PERIPHERAL NERVE CATHETER PROGRESS NOTEPATIENT NAME: Rocio JacksonMRN: [id number] DATE: 10/03/2017SERVICE TIME: 8:59 AMPRIMARY SERVICE: General [...] SQ Heparin 5000 units Q 12 LD- 08, platelet count 225.?PLAN:Continue epidural analgesia to promote [...] catheter placed: Day of surgery?MEDICATIONS:Epidural Medications and PLASTIC OUTFITTER SettingsBupivacaine 0.1% + Dilaudid?Basal rate: 4 mL/hr.Patient Demand Bolus: 3 mL.Lockout interval: 4 minutes.??Current hospital medications:oxyCODONE IR 5 mg tab(s) (ROXICODONE) 5 mg ORAL q 4 H PRNdocusate sodium 100 mg cap(s) (COLACE) 100 mg ORAL BIDacetaminophen 650 mg CUP (TYLENOL) 650 mg ORAL/FEEDING TUBE q 6 Hatorvastatin 40 mg tab(s) (LIPITOR) 40 mg ORAL/FEEDING TUBE AT BEDTIMEphenol 1 [place] (CHLORASEPTIC) 1 [place] MUCOUS MEMBRANE (TOPICAL MOUTH ANDTHROAT) q 2 [...] mg ORAL q 8 HHYDROmorphone 0.5 mg/mL PLASTIC OUTFITTER CLINICIAN DOSE 0.2 mg 0.2 mg INTRAVENOUS q 6 HPRNinsulin lispro injection (rapid acting) (HumaLOG) SUBCUTANEOUS q 6 Hheparin 5,000 Units injection 5,000 Units SUBCUTANEOUS q 12 Hmetoclopramide HCl 10 mg injection (REGLAN) 10 mg INTRAVENOUS q 6 H PRNOBJECTIVE:PHYSICAL EXAM:Patient Vitals for the past 3 hrs: BP Temp Temp src Pulse Resp IbC153//18 0736 134/78 37.3 ?C (99.2 ?F) Oral [...] progress and plan of care with Dr. RaiATURE: Brock Dixon PA-C PATIENT NAME: Rociomarisa JacksonDATE: October 03, 2017 : 8:59 AM PAGER/CONTACT #: [place] [phone] Normal [facility] Comp Metabolic Panelon 10-03 Alanine aminotransferase (ALT) 25 U/L Normal 5-50 [facility] Comment on above: Performed By: #### P T, PTT, AMYL, CMP, LIPA, PHOS ####[place] [address]#### TRANSF ####[address] [place] [place] [address] Albumin 2.5 g/dL Low 3.5-5.0 [facility] Comment on above: Performed By: #### P T, PTT, AMYL, CMP, LIPA, PHOS ####[place] [address]#### TRANSF ####[place] [address] Alkaline phosphatase (ALP) 72 U/L Normal 40-150 [facility] Comment on above: Performed By: #### P T, PTT, AMYL, CMP, LIPA, PHOS ####[place] [address]#### TRANSF ####[place] [address] Anion gap 11 mmol/L Normal 9-18 [facility] Comment on above: Performed By: #### P T, PTT, AMYL, CMP, LIPA, PHOS ####[place] [address]#### TRANSF ####[place] [address] Aspartate aminotransferase (AST) 20 U/L Normal 7-40 [facility] Comment on above: Performed By: #### P T, PTT, AMYL, CMP, LIPA, PHOS ####[place] [address]#### TRANSF ####[address], [place] [phone] Bilirubin (total) 0.2 mg/dL Normal 0.0-1.5 [facility] [place] Comment on above: Performed By: #### P T, PTT, AMYL, CMP, LIPA, PHOS ####[place] [address]#### TRANSF ####[address]inal[address] [place] [phone] Calcium 8.3 mg/dL Low 8.5-10.5 [facility] Comment on above: Performed By: #### P T, PTT, AMYL, CMP, LIPA, PHOS ####[place] [address]#### TRANSF ####[place] [address] Chloride 105 mmol/L Normal 98-110 [facility] Comment on above: Performed By: #### P T, PTT, AMYL, CMP, LIPA, PHOS ####[place] [address]#### TRANSF ####[place] [address] CO2 24 mmol/L Normal 23-32 [facility] Comment on above: Performed By: #### P T, PTT, AMYL, CMP, LIPA, PHOS ####[place] [address]#### TRANSF ####[place] [phone] Creatinine 0.55 mg/dL Low 0.70-1.40 [facility] Comment on above: Performed By: #### P T, PTT, AMYL, CMP, LIPA, PHOS ####[place] [address]#### TRANSF ####[place] [phone] eGFR (non-black) mL/min/{1.73_m2} Normal >60 [facility] Comment on above: Performed By: #### P T, PTT, AMYL, CMP, LIPA, PHOS ####[place] [address]1826[address]71[address]#### TRANSF ####[place] [phone] Glucose mass conc 138 mg/dL High 65-100 [facility] [place] Comment on above: Performed By: #### P T, PTT, AMYL, CMP, LIPA, PHOS ####[place] [address]1826[address]#### TRANSF ####[place] [phone] Potassium molar conc 4.1 mmol/L Normal 3.5-5.0 [facility] Comment on above: Performed By: #### P T, PTT, AMYL, CMP, LIPA, PHOS ####[place] [address]#### TRANSF ####[place] [phone] Protein 5.7 g/dL Low 6.0-8.4 [facility] Comment on above: Performed By: #### P T, PTT, AMYL, CMP, LIPA, PHOS ####[place] [address]#### TRANSF ####[place] [phone] Sodium 140 mmol/L Normal 135-146 [facility] Comment on above: Performed By: #### P T, PTT, AMYL, CMP, LIPA, PHOS ####[place] [address]1826[address]#### TRANSF ####[place] [address] [place] [phone] Urea nitrogen 18 mg/dL Normal 10-25 [facility] Comment on above: Performed By: #### P T, PTT, AMYL, CMP, LIPA, PHOS ####[place] [address]1826[address]#### TRANSF ####[place] [phone] Magnesiumon 10-03-2017 Magnesium 1.8 mg/dL Normal 1.7-2.6 [facility] Comment on above: Performed By: #### P T, PTT, AMYL, CMP, LIPA, PHOS ####[place] [address]#### TRANSF ####[place] [phone] NURSING PROGon 10-03-2017 NURSING PROG HNO ID: [id number] thor: Homa (Rn) Bonnie, RNService: (none)Author Type: Registered NurseType: Nursing Progress NoteFiled: 10/04/2017 1:34 AMNote Text: Nursing Progress NotePatient Name: Rocio Boudreaux: [id number] Location: [place] [address] ____Daily Note: Pt AANDOx3. Adequate saturation on RA. ABD distended, tender totouch. Midline ADELA. Pt states he has passed a little gas. [place]anc[place] drainingclear, yellow. Epidural infusing per order. Tube feed at 50cc/hr.Ambulated pod with x1 assist and walker. No needs voiced. Call lightwithin reach, will continue to monitor.This note was completed by: Homa Nicole RN Normal [facility] NURSING PROG HNO ID: [id number] thor: Serena (Rn) Terry RNService: NursingAuthor Type: Registered NurseType: Nursing Progress NoteFiled: 10/03/2017 6:32 PMNote Text: Nursing Progress NotePatient Name: Rocio HayesN: [id number] Location: [address]/[id number] ____Daily Note: Late entry for 1100: Pt ambulated care home around POD usingwalker ( standby assistance). Pt tolerated well. Currently sitting inrecliner chair. Family at bedside.1300: Diet advanced to full liquids. Tolerating well. Creon given withlunch. Handout given and teaching provided about new medication.1500: Right biliary drain flushed with 5cc NS per order. New drainsponges applied to right and left ROMINA drains.1530: Pt ambulated care home around POD for 2nd time this vdoxc3898: Resident into remove pt's ROMINA drains. PtThis note was completed by: Serena Stewart RN [facility] NURSING PROG HNO ID: [id number] thor: Jennifer Humphries (Rn) Eleanor, RNService: (none)Author Type: Registered NurseType: Nursing Progress NoteFiled: 10/02/2017 11:39 PMNote Text: Nursing Progress NotePatient Name: Rocio HayesN: [id number] Location: [address]/[id number] ____ Pt up in chair at start of shift. Pts and sister staying in room wpt. Rates pain 1 , states epidural adequate for pain control. Bili drainflushed earlier per orders, flushes well. Pt denies nausea with clears.BS hypo. Denies passing flatus.This note was completed by: Jennifer Webster RN [facility] PROGRESSon 10-03-2017 PROGRESS HNO ID: [id number] thor: Mela Sheridane: General SurgeryAuthor Type: PhysicianType: Progress NotesFiled: 10/03/2017 1:26 PMNote Text:Covering MDNo new c/oPain well controlledCont epidural for nowWill remove drains if no evid for leakPt appreciative of Molly Verdin MD [facility] PROGRESS HNO ID: [id number] thor: Flynn (Res) ASHLEY Laraervice: General SurgeryAuthor [...] lb 12.3 oz) SpO2 97% BMI 29.77 kg/h2EBXANWU: no acute distressABDOMEN: soft, diffusely tender, nondistended. Incision c/d/i. Foleydraining yellow-red urine. Both JPs with serosanguinous fluid.Labs:CBC, BMP, MG, PHOSRecent Labs 600 115 04/06/328341 04/05/826514 04/05/477321 04/04/565992YUA 5.92 6.15 6.47 -- 8.38 < > [...] 0.3 0.5LACT -- -- -- 2.3*CoagsRecent Labs 09/24/18085APTT 25.9 24.9 -- -- 39.8* 31.6INR 1.2 1.1 1.0 2.0* 2.0* 1.5*Intake and Output:Date 10/01/17699 - 10/02/17 0659 10/02/17699 - 10/03/17 0659Shift 6148-3761 8625-4624 8119-1748 24 Hour Total 0589-1721 [id number] 24 Hour TotalINTAKE PO 0 97 482 [...] 2886 601.6 3637.6 60 60OUTPUT Urine 310 575 539 8383 75 75 Tube Output ( Indwelling Urinary Catheter 09/30/17 0909 [place] 16Fr) 310 333 761 7420 75 75 Tubes 70 135 35 240 [...] BM (mL) 0 0 Shift Total 380 204 265 7594 75 75Weight (kg) 81.1 81.1 88.8 88.8 88.8 88.8 88.8 88.8Current Medications:Current hospital medications:oxyCODONE IR 5 mg tab(s) (ROXICODONE) 5 mg ORAL q 4 H DKVpxdsls-lsvakppx-ukzcznk 2 capsule cap(s) (CREON 24) 2 capsule ORAL TID wMEALSacetaminophen 650 mg tab(s) (TYLENOL) 650 mg ORAL q 6 Hdocusate sodium 100 mg cap(s) (COLACE) 100 mg ORAL BIDatorvastatin 40 mg tab(s) (LIPITOR) 40 mg ORAL/FEEDING TUBE AT BEDTIMEphenol 1 [place] (CHLORASEPTIC) 1 [place] MUCOUS MEMBRANE (TOPICAL MOUTH ANDTHROAT) q 2 [...] mg ORAL q 8 HHYDROmorphone 0.5 mg/mL PLASTIC OUTFITTER CLINICIAN DOSE 0.2 mg 0.2 mg INTRAVENOUS q 6 HPRNinsulin lispro injection (rapid acting) (HumaLOG) SUBCUTANEOUS q 6 Hheparin 5,000 Units injection 5,000 Units SUBCUTANEOUS q 12 Hmetoclopramide HCl 10 mg injection (REGLAN) 10 mg INTRAVENOUS q 6 H PRN Normal [facility] Phosphoruson 10-03-2017 Phosphate 3.1 mg/dL Normal 2.5-4.5 [facility] Comment on above: Performed By: #### P T, PTT, AMYL, CMP, LIPA, PHOS ####[facility] [place], [place] [phone]#### TRANSF ####[facility] [place], [place] [phone] Amylaseon 10-02-2017 Amylase 45 U/L Normal 0-137 [facility] Comment on above: Performed By: #### P T, PTT, AMYL, CMP, LIPA, PHOS ####[facility] [place], [place] [phone]#### TRANSF ####[facility] [place], [place] [phone] CASE MANAGEMon 10-02-2017 CASE MANAGEM HNO ID: [id number] thor: Lee Ann (Rn) Sveta, RNService: Care ManagementAuthor Type: Registered NurseType: Care Mgt Progress NoteFiled: 10/02/2017 11:48 AMNote Text:CARE MANAGEMENT PROGRESS NOTESERVICE DATE: 10/02/2017SERVICE TIME: 11:44 AM LOS: 2 daysFREEDOM OF CHOICE GIVEN:Yes patientProvider List: Residential FacilityNeeds Prior to Discharge: Accepting FacilityTCC met with patient and sister Briana at bedside. Discussed PTrecommendations for acute rehab--[facility] closest acute [facility] that acceptshis insurance, patient states wants to be [facility] to home-[facility] and states would prefer a SNF closer to home. Givenprovider list, patient and sister want to look over the list beforedeciding. CM will continue to assist with transition of care needs.SIGNATURE: Lee Ann Bangura RN PATIENT NAME: Rocio TorresKandisTE: October 02, 2017 : 11:44 AM PAGER/CONTACT #: [phone] Normal [facility] CBCon 10-02-2017 Erythrocyte distribution width Auto Ratio (RBC) 16.2 % High 11.5-15.0 [facility] Comment on above: Performed By: #### P T, PTT, AMYL, CMP, LIPA, PHOS ####[facility] [place], [place] [phone]#### TRANSF ####[place] [phone] Erythrocytes (RBC) 3.38 10*6/uL Low 4.20-6.00 [facility] Comment on above: Performed By: #### P T, PTT, AMYL, CMP, LIPA, PHOS ####[place] [address]#### TRANSF ####[place] [phone] Hematocrit (HCT) 26.4 % Low 39.0-51.0 [facility] Comment on above: Performed By: #### P T, PTT, AMYL, CMP, LIPA, PHOS ####[place] [address]#### TRANSF ####[place] [phone] Hemoglobin mass conc (Bld) 8.6 g/dL Low 13.0-17.0 [facility] Comment on above: Performed By: #### P T, PTT, AMYL, CMP, LIPA, PHOS ####[place] [address]#### TRANSF ####[place] [phone] MCH 25.4 pG Low 26.0-34.0 [facility] Comment on above: Performed By: #### P T, PTT, AMYL, CMP, LIPA, PHOS ####[place] [address]#### TRANSF ####[place] [phone] MCHC mass conc (RBC) 32.6 g/dL Normal 30.5-36.0 [facility] Comment on above: Performed By: #### P T, PTT, AMYL, CMP, LIPA, PHOS ####[place] [phone]#### TRANSF ####[place] [phone] MCV 78.1 fL Low 80.0-100.0 [facility] Comment on above: Performed By: #### P T, PTT, AMYL, CMP, LIPA, PHOS ####[place] [address]#### TRANSF ####[place] [phone] Platelet mean volume (PMV) 9.4 fL Normal 9.0-12.7 [facility] Comment on above: Performed By: #### P T, PTT, AMYL, CMP, LIPA, PHOS ####[place] [address]#### TRANSF ####[place] [phone] Platelets 210 10*3/uL Normal 150-400 [facility] Comment on above: Performed By: #### P T, PTT, AMYL, CMP, LIPA, PHOS ####[place] [address]#### TRANSF ####[place] [phone] WBC (Leukocytes) 6.15 10*3/uL Normal 3.70-11.00 [facility] Comment on above: Performed By: #### P T, PTT, AMYL, CMP, LIPA, PHOS ####[place] [address]#### TRANSF ####[place] [phone] CBC and Differentialon 10-02 Abs Baso <0.03 Normal <0.11 [facility] Comment on above: Performed By: #### P T, PTT, AMYL, CMP, LIPA, PHOS ####[place] [address]#### TRANSF ####[place] [address] [place] AvReginald [place] [phone] Abs Vance 0.49 k/uL Normal <0.87 [facility] Comment on above: Performed By: #### P T, PTT, AMYL, CMP, LIPA, PHOS ####[place] [address]#### TRANSF ####[place] [phone] Abs Neut 4.18 k/uL Normal 1.45-7.50 [facility] Comment on above: Performed By: #### P T, PTT, AMYL, CMP, LIPA, PHOS ####[place] [address]#### TRANSF ####[place] [address]65734[address] Basophils/100 WBC Auto (Bld) 0.2 % Normal [facility] Comment on above: Performed By: #### P T, PTT, AMYL, CMP, LIPA, PHOS ####[place] [address]#### TRANSF ####[place] [phone] DTYPE Auto Diff Normal [facility] Comment on above: Performed By: #### P T, PTT, AMYL, CMP, LIPA, PHOS ####[place] [address]#### TRANSF ####[address] AvReginald V[place] [phone] Eosinophils 0.23 10*3/uL Normal <0.46 [facility] Comment on above: Performed By: #### P T, PTT, AMYL, CMP, LIPA, PHOS ####[place] [address]#### TRANSF ####[address] AvReginald Ville [phone] Eosinophils/100 leukocytes 3.6 % Normal [facility] Comment on above: Performed By: #### P T, PTT, AMYL, CMP, LIPA, PHOS ####[place] [address]#### TRANSF ####[place] [phone] Erythrocyte distribution width Auto Ratio (RBC) 16.6 % High 11.5-15.0 [facility] Comment on above: Performed By: #### P T, PTT, AMYL, CMP, LIPA, PHOS ####[place] [address]#### TRANSF ####[place] [phone] Erythrocytes (RBC) 3.13 10*6/uL Low 4.20-6.00 [facility] Comment on above: Performed By: #### P T, PTT, AMYL, CMP, LIPA, PHOS ####[place] [id number]#### TRANSF ####[place] [id number] Hematocrit (HCT) 24.3 % Low 39.0-51.0 [facility] Comment on above: Performed By: #### P T, PTT, AMYL, CMP, LIPA, PHOS ####[place] [id number]#### TRANSF ####[place] [id number] Hemoglobin mass conc (Bld) 7.8 g/dL Low 13.0-17.0 [facility] Comment on above: Performed By: #### P T, PTT, AMYL, CMP, LIPA, PHOS ####[place] [id number]#### TRANSF ####[id number] Lymphocytes 1.56 10*3/uL Normal 1.00-4.00 [facility] Comment on above: Performed By: #### P T, PTT, AMYL, CMP, LIPA, PHOS ####[place] [address]#### TRANSF ####[place] [id number] Lymphocytes/100 leukocytes 24.1 % Normal [facility] Comment on above: Performed By: #### P T, PTT, AMYL, CMP, LIPA, PHOS ####[place] [address]#### TRANSF ####[place] [id number] MCH 24.9 pG Low 26.0-34.0 [facility] Comment on above: Performed By: #### P T, PTT, AMYL, CMP, LIPA, PHOS ####[place] [address]#### TRANSF ####[place] [phone] MCHC mass conc (RBC) 32.1 g/dL Normal 30.5-36.0 [facility] Comment on above: Performed By: #### P T, PTT, AMYL, CMP, LIPA, PHOS ####[address]#### TRANSF ####[place] [phone] MCV 77.6 fL Low 80.0-100.0 [facility] Comment on above: Performed By: #### P T, PTT, AMYL, CMP, LIPA, PHOS ####[place] [address]#### TRANSF ####[place] [address] [address] [phone] Monocytes/100 leukocytes 7.6 % Normal [facility] Comment on above: Performed By: #### P T, PTT, AMYL, CMP, LIPA, PHOS ####[place] [address]#### TRANSF ####[place] [address] [address] [phone] Neutrophils/100 WBC Auto (Bld) 64.5 % Normal [facility] Comment on above: Performed By: #### P T, PTT, AMYL, CMP, LIPA, PHOS ####[place] [address]#### TRANSF ####[place] [phone] Platelet mean volume (PMV) 9.1 fL Normal 9.0-12.7 [facility] Comment on above: Performed By: #### P T, PTT, AMYL, CMP, LIPA, PHOS ####[place] [address]#### TRANSF ####[place] [address] [address] [phone] Platelets 207 10*3/uL Normal 150-400 [facility] Comment on above: Performed By: #### P T, PTT, AMYL, CMP, LIPA, PHOS ####[place] [address]#### TRANSF ####[place] [address] [address] [phone] WBC (Leukocytes) 6.47 10*3/uL Normal 3.70-11.00 [facility] Comment on above: Performed By: #### P T, PTT, AMYL, CMP, LIPA, PHOS ####[facility] [place], [place] [phone]#### TRANSF ####[facility] [address] [place], [place] [phone] CONSULT PROGon 10-02-2017 CONSULT PROG HNO ID: [id number] thor: Matilda Hydee: AnesthesiologyAuthor Type: AnesthesiologistType: Consult Progress NoteFiled: 10/02/2017 9:33 AMNote Text:APS EPIDURAL CATHETER PROGRESS NOTESERVICE DATE: 10/02/2017SERVICE TIME: 9:27 AMPRIMARY SERVICE: HBSSubjectiveINTERVAL HPI:Rocio Jackson is a 62 year old male who is POD #2 S/P WhipplePatient also has an IV PLASTIC OUTFITTER: NoIV Line Appears Intact YesPain at Surgical [...] Placed: Day of surgeryMEDICATIONS:I have interrogated the PLASTIC OUTFITTER pump(s) for the correct settings and solution:Yes.EPIDURAL MEDICATIONS AND PLASTIC OUTFITTER SETTINGS: Other: bupivicaine + hydromorphoneBasal Rate: 4 mL/hr.Patient Demand Bolus: 3 mL.Lockout Interval: 15 Minutes.Additional Medication(s) GIven: See BelowAnticoagulation Therapy: noneCurrent hospital medications:magnesium sulfate in water 2 g in sterile water 50 ml 2 g INTRAVENOUS ONCEsodium phosphate 15 mmol in D5W 250 mL 15 mmol INTRAVENOUS ONCEdocusate sodium 100 mg cap(s) (COLACE) 100 mg ORAL BIDphenol 1 [place] (CHLORASEPTIC) 1 [place] MUCOUS MEMBRANE (TOPICAL MOUTH ANDTHROAT) q 2 [...] (MOTRIN) 800 mg ORAL q 8 HHYDROmorphone PLASTIC OUTFITTER 0.5 mg/mL in NaCl 0.9% 100 mL INTRAVENOUS CONTINUOUSHYDROmorphone 0.5 mg/mL PLASTIC OUTFITTER CLINICIAN DOSE 0.2-0.4 mg 0.2-0.4 mgINTRAVENOUS (PACU) PRNHYDROmorphone 0.5 mg/mL PLASTIC OUTFITTER CLINICIAN DOSE 0.2 mg 0.2 mg INTRAVENOUS q 6 HPRNinsulin lispro injection (rapid acting) (HumaLOG) SUBCUTANEOUS q 6 Hheparin 5,000 Units injection 5,000 Units SUBCUTANEOUS q 12 Hmetoclopramide HCl 10 mg injection (REGLAN) 10 mg INTRAVENOUS q 6 H PRNPHYSICAL EXAM:Patient Vitals for the past 4 hrs: BP Temp Temp src Pulse Resp SpO2 Roduxz91/06/18 0800 134/79 36.7 ?C (98 ?F) Oral 88 19 98 % -10/02/17 0700 - - - 78 15 97 % -10/02/17 0600 - - - 81 17 95 % [...] HPI above. Pain wellcontrolled with current epidural PLASTIC OUTFITTER.Assessment: Pain adequately controlled.Patient satisfied with analgesic regimen..Plan of Care: Continue epidural analgesia to promote comfort, mobility,and pulmonary toilet.Plan to start roxicodone tomorrow once the patient continue to tolerateenteral nutrition and hold epidural catheter.SIGNATURE: Matilda Raya MD PATIENT NAME: Rocio JacksonDATE: October 02, 2017 : 9:27 AM PAGER/CONTACT #: Normal [facility] Comp Metabolic Panelon 10-02 Alanine aminotransferase (ALT) 27 U/L Normal 5-50 [facility] Comment on above: Performed By: #### P T, PTT, AMYL, CMP, LIPA, PHOS ####[place] [address]#### TRANSF ####[place] [address] Albumin 2.5 g/dL Low 3.5-5.0 [facility] Comment on above: Performed By: #### P T, PTT, AMYL, CMP, LIPA, PHOS ####[place] [address]#### TRANSF ####[place] [address] Alkaline phosphatase (ALP) 68 U/L Normal 40-150 [facility] Comment on above: Performed By: #### P T, PTT, AMYL, CMP, LIPA, PHOS ####[place] [address]#### TRANSF ####[place] [address] Anion gap 6 mmol/L Low 9-18 [facility] Comment on above: Performed By: #### P T, PTT, AMYL, CMP, LIPA, PHOS ####[place] [address]#### TRANSF ####[place] [address] Aspartate aminotransferase (AST) 23 U/L Normal 7-40 [facility] Comment on above: Performed By: #### P T, PTT, AMYL, CMP, LIPA, PHOS ####[place] [address]#### TRANSF ####[place] [phone] Bilirubin (total) 0.3 mg/dL Normal 0.0-1.5 [facility] [place] Comment on above: Performed By: #### P T, PTT, AMYL, CMP, LIPA, PHOS ####[place] [address]#### TRANSF ####[place] [phone] Calcium 8.3 mg/dL Low 8.5-10.5 [facility] Comment on above: Performed By: #### P T, PTT, AMYL, CMP, LIPA, PHOS ####[place] [address]#### TRANSF ####[place] [address] Chloride 103 mmol/L Normal 98-110 [facility] Comment on above: Performed By: #### P T, PTT, AMYL, CMP, LIPA, PHOS ####[place] [address]#### TRANSF ####[place] [address] CO2 26 mmol/L Normal 23-32 [facility] Comment on above: Performed By: #### P T, PTT, AMYL, CMP, LIPA, PHOS ####[place] [address]#### TRANSF ####[place] [phone] Creatinine 0.64 mg/dL Low 0.70-1.40 [facility] Comment on above: Performed By: #### P T, PTT, AMYL, CMP, LIPA, PHOS ####[place] [address]#### TRANSF ####[address] [place] [phone] eGFR (non-black) mL/min/{1.73_m2} Normal >60 [facility] Comment on above: Performed By: #### P T, PTT, AMYL, CMP, LIPA, PHOS ####[place] [address]1826[address]#### TRANSF ####[place] [phone] Glucose mass conc 154 mg/dL High 65-100 [facility] [place] Comment on above: Performed By: #### P T, PTT, AMYL, CMP, LIPA, PHOS ####[place] [address]#### TRANSF ####[place] [phone] Potassium molar conc 4.2 mmol/L Normal 3.5-5.0 [facility] Comment on above: Performed By: #### P T, PTT, AMYL, CMP, LIPA, PHOS ####[place] [address]#### TRANSF ####[place] [phone] Protein 5.3 g/dL Low 6.0-8.4 [facility] Comment on above: Performed By: #### P T, PTT, AMYL, CMP, LIPA, PHOS ####[address]#### TRANSF ####[place] [phone] Sodium 135 mmol/L Normal 135-146 [facility] Comment on above: Performed By: #### P T, PTT, AMYL, CMP, LIPA, PHOS ####[address]#### TRANSF ####[place] [address] [place], [place] [phone] Urea nitrogen 22 mg/dL Normal 10-25 [facility] Comment on above: Performed By: #### P T, PTT, AMYL, CMP, LIPA, PHOS ####[place] [address]18[address]#### TRANSF ####[place] [phone] Magnesiumon 10-02-2017 Magnesium 1.9 mg/dL Normal 1.7-2.6 [facility] Comment on above: Performed By: #### P T, PTT, AMYL, CMP, LIPA, PHOS ####[place] [address]18[address]#### TRANSF ####[place] [phone] NURSING PROGon 10-02-2017 NURSING PROG HNO ID: [id number] thor: Luis (Rn) Rita, RNService: (none)Author Type: Registered NurseType: Nursing Progress NoteFiled: 10/02/2017 6:43 PMNote Text: Nursing Progress NotePatient Name: Rocio Boudreaux: [id number] Location: [place] [address]/[id number] ____Daily Note:1600: pt transferred from [facility] to [facility]. Pt sitting in chair.Blood transfusion infusing well without difficulty. Nurse emptied JPdrains x2, see IANDO. Pt states he has no pain at this time. Pt has abuprivacaine-hydromorphone epidural. Epidural control in hand. Willmonitor, call light in reach.1833: blood transfusion completed. Pt tolerated well.This note was completed by: Luis Salinas, RN [facility] NURSING PROG HNO ID: [id number] thor: Sabrina (Rn) Abraham, MOUSTAPHAervice: NursingAuthor Type: Registered NurseType: Nursing Progress NoteFiled: 10/02/2017 2:48 PMNote Text: Nursing Progress NotePatient Name: Rocio JacksonMRN: [id number] Location: [place] [address]/[id number] ___Daily Note:0700 bedside report received from KEVIN Valerio. Gtt checked.Patient [id number] patient assessed see [id number] OT at bedside assessing patient.0840 patient walked with a walker and OT 1 [id number] patient tolerates chair 1 assist up to stand and march in [id number] called report to [id number] note was completed by: Sabrina Cornejo, RN [facility] PROGRESSon 10-02-2017 PROGRESS HNO ID: [id number] thor: Rick Nunovice: Critical CareAuthor Type: PhysicianType: Progress NotesFiled: 10/02/2017 [...] discussed with ICU Staff Dr. Boothe.Kolby Brown MDJohn A. Andrew Memorial Hospital Surgery[C]: [phone] [P]: [id number]: 10/02/2017Time: 10:32 AMSubjective:Interval Events: NAEON. TFs at goal.Physical Exam:BP 134/79 Pulse 88 Temp 36.7 ?C (98 ?F) (Oral) Resp 19 Ht 172.7 cm(5' 7.99 ) Wt 88.8 kg (195 lb 12.3 oz) SpO2 98% BMI 29.77 kg/h9XXCKQXD: Well appearing 62 year old male in no distressNEURO: AAOx3, GYG12VDAJA: Atraumatic, corpak in palceCHEST: nonlabored breathing on RA. NL rate and rhythmABDOMEN: Soft, non-distended, mildly tenderEXTREMITIES: Warm well perfused, no deformitiesLabs:CBC, BMP, MG, PHOSRecent Labs 10/01/18173209/30/1820WBC 6.47 -- 8.38 8.24 7.14 7.49 4.87HB [...] 0.5 0.3LACT -- -- 2.3* --CoagsRecent Labs 09/24/18083 08/15/18205APTT 25.9 24.9 -- -- 39.8* 31.6INR 1.2 1.1 1.0 2.0* 2.0* 1.5*Intake and Output:Date 10/01/17699 - 10/02/17 0659 10/02/17699 - 10/03/17 0659Shift 0810-9808 8297-0265 5666-7319 24 Hour Total 6983-9917 1994-03106171-8149 24 Hour TotalINTAKE PO 0 97 482 [...] 2886 601.6 3637.6 60 60OUTPUT Urine 310 815 502 5575 75 75 Tube Output ( Indwelling Urinary Catheter 09/30/17 0909 [place] 16Fr) 310 125 108 5848 75 75 Tubes 70 135 35 240 [...] BM (mL) 0 0 Shift Total 380 953 434 2293 75 75Weight (kg) 81.1 81.1 88.8 88.8 88.8 88.8 88.8 88.8Current Medications:Current hospital medications:magnesium sulfate in water 2 g in sterile water 50 ml 2 g INTRAVENOUS ONCEsodium phosphate 15 mmol in D5W 250 mL 15 mmol INTRAVENOUS ONCEdocusate sodium 100 mg cap(s) (COLACE) 100 mg ORAL BIDphenol 1 [place] (CHLORASEPTIC) 1 [place] MUCOUS MEMBRANE (TOPICAL MOUTH ANDTHROAT) q 2 [...] (MOTRIN) 800 mg ORAL q 8 HHYDROmorphone PLASTIC OUTFITTER 0.5 mg/mL in NaCl 0.9% 100 mL INTRAVENOUS CONTINUOUSHYDROmorphone 0.5 mg/mL PLASTIC OUTFITTER CLINICIAN DOSE 0.2-0.4 mg 0.2-0.4 mgINTRAVENOUS (PACU) PRNHYDROmorphone 0.5 mg/mL PLASTIC OUTFITTER CLINICIAN DOSE 0.2 mg 0.2 mg INTRAVENOUS [...] 5 mg tab Take by mouth once daily.[facility] STAFF PHYSICIAN SUPERVISING RESIDENTI have reviewed the [...] of SERVICE: 10/02/2017TIME of SERVICE: 12:44 PM [facility] PROGRESS HNO ID: [id number] thor: Michael Cedillo) AugustinService: General SurgeryAuthor Type: [...] that 2pm- IPCs, SQH- anticipate transfer to [facility] to be discussed with staffSubjective:No acute events overnight. Tolerated sips of liquids no n/v. No flatus orBM.Physical Exam:BP 134/79 Pulse 88 Temp 36.7 ?C (98 ?F) (Oral) Resp 19 Ht 172.7 cm(5' 7.99 ) Wt 88.8 kg (195 lb 12.3 oz) SpO2 98% BMI 29.77 kg/o9OCFQTZN: no acute distressABDOMEN: soft, diffusely tender, nondistended. [...] 0.5 0.3LACT -- -- 2.3* --CoagsRecent Labs 09/24/18083 380955 090534 418168RFEJ 25.9 24.9 -- -- 39.8* 31.6INR 1.2 1.1 1.0 2.0* 2.0* 1.5*Intake and Output:Date 10/01/17 07 - 10/02/17 0659 10/02/17 07 - 10/03/17 0659Shift 1113-3282 9601-9798 5266-9077 24 Hour Total 9001-3054 5536-71118827-3413 24 Hour TotalINTAKE PO 0 97 482 [...] 2886 601.6 3637.6 60 60OUTPUT Urine 310 781 164 7220 75 75 Tube Output ( Indwelling Urinary Catheter 09/30/17 0909 [place] 16Fr) 310 874 252 0547 75 75 Tubes 70 135 35 240 [...] BM (mL) 0 0 Shift Total 380 525 603 9197 75 75Weight (kg) 81.1 81.1 88.8 88.8 88.8 88.8 88.8 88.8Current Medications:Current hospital medications:magnesium sulfate in water 2 g in sterile water 50 ml 2 g INTRAVENOUS ONCEsodium phosphate 15 mmol in D5W 250 mL 15 mmol INTRAVENOUS ONCEdocusate sodium 100 mg cap(s) (COLACE) 100 mg ORAL BIDphenol 1 [place] (CHLORASEPTIC) 1 [place] MUCOUS MEMBRANE (TOPICAL MOUTH ANDTHROAT) q 2 [...] (MOTRIN) 800 mg ORAL q 8 HHYDROmorphone PLASTIC OUTFITTER 0.5 mg/mL in NaCl 0.9% 100 mL INTRAVENOUS CONTINUOUSHYDROmorphone 0.5 mg/mL PLASTIC OUTFITTER CLINICIAN DOSE 0.2-0.4 mg 0.2-0.4 mgINTRAVENOUS (PACU) PRNHYDROmorphone 0.5 mg/mL PLASTIC OUTFITTER CLINICIAN DOSE 0.2 mg 0.2 mg INTRAVENOUS q 6 HPRNinsulin lispro injection (rapid acting) (HumaLOG) SUBCUTANEOUS q 6 Hheparin 5,000 Units injection 5,000 Units SUBCUTANEOUS q 12 Hmetoclopramide HCl 10 mg injection (REGLAN) 10 mg INTRAVENOUS q 6 H PRNSignature: Jennifer Adan, MDDate: October 02, 2017Time: 9:55 AMPatient Name: Rocio Boudreaux: [id number]*Please page the diversional therapist's assistant pager from 6pm-6am and all day on weekends* Normal [facility] Phosphoruson 10-02-2017 Phosphate 2.3 mg/dL Low 2.5-4.5 [facility] Comment on above: Performed By: #### P T, PTT, AMYL, CMP, LIPA, PHOS ####[facility] [place], [place] [phone]#### TRANSF ####[facility] [address] [place], [place] [phone] THERAPY NTon 10-02-2017 THERAPY NT HNO ID: [id number] thor: Jacqueline (Ot) HallService: Occupational TherapyAuthor Type: Occupational TherapistType: Therapy (PT/OT/Speech/Resp)Filed: 10/02/2017 8:55 AMNote Text:Occupational Therapy EvaluationSERVICE DATE: 10/02/2017SERVICE TIME: 0820 to 0843ROOM: [id number] Discharge Disposition: Acute RehabJustification For Post Acute [...] Pt?s pertinent PMH includes: DM, HTN,CAD, glaucoma, DE, cholecystectomy c/b leak found to have duodenal [...] Involving Cognitive Functions andAwarenessInterventions Provided: Evaluation;Therapeutic Activity (93296)$ Evaluation-Low (42204) Billed Units: 1 unitTherapeutic Activity (61208) Treatment Minutes: 81 unitSkilled Intervention(s): Instructed patient [...] see aboveReason for Occupational Therapy Consult: s/p whipple procedureRelevant Past Medical History: DM, HTN, CAD, [...] has assist with all IADLs. 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.OBJECTIVE:Orientation Deficits: ConfusedResponsiveness: AwakeFollows Commands: 2-step [...] forcomplete details for this therapy evaluation/treatment.SIGNATU RE: WENDY Chaparro/Timo PATIENT NAME: Rocio BrianKandisTE: October 02, 2017 : 8:50 AM PAGER: [phone] Normal [facility] Type and Screenon 10-02-2017 ABO/RH(D) Positive [facility] Comment on above: Performed By: #### P T, PTT, AMYL, CMP, LIPA, PHOS ####[facility] [place], [place] [phone]#### TRANSF ####[facility] [place], [place] [phone] Antibody Screen Negative [facility] Comment on above: Performed By: #### P T, PTT, AMYL, CMP, LIPA, PHOS ####[facility] [phone]#### TRANSF ####[place] [address] [place], [place] [phone] Amylaseon 10-01-2017 Amylase 151 U/L High 0-137 [facility] Comment on above: Performed By: #### P T, PTT, AMYL, CMP, LIPA, PHOS ####[place] [address] [place] [phone]#### TRANSF ####[address] [phone] Amylase,Body Fluidon 018 Amylase 817 U/L Critically abnormal See Comment [facility] Comment on above: Result Comment: (NOT E)PLEURAL [...] CLSI document C49-A. SAIMA Contreras: Clinical LaboratoryStandards [place]; 2007.3. Kya CLH, Angelia RC, Nimo DJ. Use of cyst fluid CEA,CA19-9, and amylase for evaluation of pancreatic lesions. ClinicalBiochemistry. 2009;42:3745-2796.This test was developed and its performance characteristicsdetermined by [facility]'s [facility] Pathology andLabthe neuromedical center Medicine [place] ([facility]).It has not been cleared or approved by the FDA. [facility] is regulatedunder CLIA as qualified to perform high-complexity testing.This test is used for clinical purposes. It should not be regarded asinvestigational or for research. Performed By: #### P T, PTT, AMYL, CMP, LIPA, PHOS ####[facility] [place], [place] [phone]#### TRANSF ####[facility] [address] [place], [place] [phone] Amylase 1954 U/L Critically abnormal See Comment [facility] Comment on above: Result Comment: (NOT E)PLEURAL [...] CLSI document C49-A. SAIMA Contreras: Clinical LaboratoryStandards [place]; 2007.3. Kya EDUARDOH, Angelia RC, Nimo DJ. Use of cyst fluid CEA,CA19-9, and amylase for evaluation of pancreatic lesions. ClinicalBiochemistry. 2009;42:8134-1388.This test was developed and its performance characteristicsdetermined by [facility]'s [facility] Pathology andLaboratory [facility] [place] ([facility]).It has not been cleared or approved by the FDA. -[facility] is regulatedunder CLIA as qualified to perform high-complexity testing.This test is used for clinical purposes. It should not be regarded asinvestigational or for research. Performed By: #### P T, PTT, AMYL, CMP, LIPA, PHOS ####[place] [address]#### TRANSF ####[place] [phone] Fluid Type Peritoneal Fluid Normal [facility] Comment on above: Performed By: #### P T, PTT, AMYL, CMP, LIPA, PHOS ####[place] [address]#### TRANSF ####[place] [phone] Result Comment: LEFT CASE MGT INIT Pushpa 2017 CASE MGT INIT SANDRA HNO ID: [id number] thor: Catherine Humphries (Rn) MOUSTAPHA Bradshawervice: Case ManagementAuthor Type: Registered NurseType: Care Mgt Initial AssessmentFiled: 10/01/2017 12:22 PMNote Text:CARE MANAGEMENT: ASSESSMENT AND DISCHARGE PLANSERVICE DATE: 10/01/2017SERVICE TIME: 11:13 [facility] PHYSICIAN:Sofya Brary: [phone] STATUS: InpatientNeeds Prior to Discharge: To Be Determined;OT/PT EvaluationMEDICAL:Patient/Re presentative Stated Goals:To improve my functional statusTo return home to life as it wasHealth Insurance:[facility] Issues Impacting Discharge Plan: DM, HTNLast Admission [...] Services or Home Care? HomeHealth Care Agency: [facility]; ; Active.Equipment Prior to Admission: Tub bench/chairWalkerHas the Patient Been in a Residential Facility in the Past 30 days?Yes. Where and Dates: [facility] in [place] ANIOUY:Emily ing Arrangement: HomeLives With: Sister since his discharge from [facility] in August of 2017.Financial Resources: Patient is employedPrimary Contact: Extended Emergency Contact InformationPrimary Emergency Contact: Corazon Mullerddress: Michel [address] [place], [place] [address]Rzrd Pfsdtkqr: SiblingSupportive: YesOther Important Patient Contacts: NoneCaregiver Assessment:Caregiver [...] - 0I feel financially burdened by my tii-cl-jrqpwn expenses for myprescription medication: Disagree mostly -0Patient [...] NoneFREEDOM OF CHOICE EXPLAINED:Yes on 10/01/17POTENTIAL TRANSITION PLANSNew [facility] OT/[facility]/Intermediate Care FacilityCM met with patient at bedside. His two sisters were in the room at thetime, and patient approved their staying in the room during theassessment. 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 He currently lives with his sister who ishelping with his care since his discharge from [facility] in August. He is active with [facility], and stated he washappy with their services. Patient will need a PT/OT evaluation todetermine skilled/safety needs. CM will continue to follow plan of care toassist with discharge planning.SIGNATURE: Catherine Bradshaw RN PATIENT NAME: Rocio VenturaDATE: October 01, 2017 : 11:13 AM PAGER/CONTACT #: [phone] Normal [facility] CBC and Differentialon 10-01 Abs Baso <0.03 Normal <0.11 [facility] Comment on above: Performed By: #### P T, PTT, AMYL, CMP, LIPA, PHOS ####[place] [phone]#### TRANSF ####[place] [phone] Abs Vance 0.60 k/uL Normal <0.87 [facility] Comment on above: Performed By: #### P T, PTT, AMYL, CMP, LIPA, PHOS ####[place] [phone]#### TRANSF ####[phone] Abs Neut 5.57 k/uL Normal 1.45-7.50 [facility] Comment on above: Performed By: #### P T, PTT, AMYL, CMP, LIPA, PHOS ####[place] [address]#### TRANSF ####[place] [phone] Basophils/100 WBC Auto (Bld) 0.0 % Normal [facility] Comment on above: Performed By: #### P T, PTT, AMYL, CMP, LIPA, PHOS ####[place] [address]#### TRANSF ####[place] [phone] DTYPE Auto Diff Normal [facility] Comment on above: Performed By: #### P T, PTT, AMYL, CMP, LIPA, PHOS ####[place] [address]#### TRANSF ####[place] [phone] Eosinophils 10*3/uL Normal <0.46 [facility] Comment on above: Performed By: #### P T, PTT, AMYL, CMP, LIPA, PHOS ####[place] [address]#### TRANSF ####[place] [phone] Eosinophils/100 leukocytes 0.0 % Normal [facility] Comment on above: Performed By: #### P T, PTT, AMYL, CMP, LIPA, PHOS ####[place] [address]#### TRANSF ####[place] [phone] Erythrocyte distribution width Auto Ratio (RBC) 16.4 % High 11.5-15.0 [facility] Comment on above: Performed By: #### P T, PTT, AMYL, CMP, LIPA, PHOS ####[place] [address]#### TRANSF ####[place] [address] Erythrocytes (RBC) 3.53 10*6/uL Low 4.20-6.00 [facility] Comment on above: Performed By: #### P T, PTT, AMYL, CMP, LIPA, PHOS ####[place] [address]#### TRANSF ####[place] [phone] Hematocrit (HCT) 27.4 % Low 39.0-51.0 [facility] Comment on above: Performed By: #### P T, PTT, AMYL, CMP, LIPA, PHOS ####[place] [address]#### TRANSF ####[place] [phone] Hemoglobin mass conc (Bld) 8.8 g/dL Low 13.0-17.0 [facility] Comment on above: Performed By: #### P T, PTT, AMYL, CMP, LIPA, PHOS ####[place] [address]#### TRANSF ####[place] [phone] Lymphocytes 2.21 10*3/uL Normal 1.00-4.00 [facility] Comment on above: Performed By: #### P T, PTT, AMYL, CMP, LIPA, PHOS ####[place] [address]#### TRANSF ####[place] [phone] Lymphocytes/100 leukocytes 26.4 % Normal [facility] Comment on above: Performed By: #### P T, PTT, AMYL, CMP, LIPA, PHOS ####[place] [address]#### TRANSF ####[place] [address]657[address] MCH 24.9 pG Low 26.0-34.0 [facility] Comment on above: Performed By: #### P T, PTT, AMYL, CMP, LIPA, PHOS ####[place] [address]#### TRANSF ####[place] [phone] MCHC mass conc (RBC) 32.1 g/dL Normal 30.5-36.0 [facility] Comment on above: Performed By: #### P T, PTT, AMYL, CMP, LIPA, PHOS ####[place] [address]#### TRANSF ####[place] [address]65734[address] MCV 77.6 fL Low 80.0-100.0 [facility] Comment on above: Performed By: #### P T, PTT, AMYL, CMP, LIPA, PHOS ####[place] [address]#### TRANSF ####[place] [address]65734[address] Monocytes/100 leukocytes 7.2 % Normal [facility] Comment on above: Performed By: #### P T, PTT, AMYL, CMP, LIPA, PHOS ####[place] [address]#### TRANSF ####[place] [phone] Neutrophils/100 WBC Auto (Bld) 66.4 % Normal [facility] Comment on above: Performed By: #### P T, PTT, AMYL, CMP, LIPA, PHOS ####[place] [address]#### TRANSF ####[place] [phone] Platelet mean volume (PMV) 9.7 fL Normal 9.0-12.7 [facility] Comment on above: Performed By: #### P T, PTT, AMYL, CMP, LIPA, PHOS ####[place] [address]#### TRANSF ####[place] [phone] Platelets 230 10*3/uL Normal 150-400 [facility] Comment on above: Performed By: #### P T, PTT, AMYL, CMP, LIPA, PHOS ####[place] [address]#### TRANSF ####[place] [phone] WBC (Leukocytes) 8.38 10*3/uL Normal 3.70-11.00 [facility] Comment on above: Performed By: #### P T, PTT, AMYL, CMP, LIPA, PHOS ####[place] [address]#### TRANSF ####[place] [phone] CONSULT PROGon 10-01-2017 CONSULT PROG HNO ID: [id number] thor: Matilda Malloy: Pain ManagementAuthor Type: AnesthesiologistType: [...] catheter placed: Day of surgeryMEDICATIONS:Epidural Medications and PLASTIC OUTFITTER SettingsBupivacaine 0.1% + DilaudidBasal rate: 6 mL/hr.Patient Demand Bolus: 3 mL.Lockout interval: 4 minutes.Additional medication(s) given: See belowAnticoagulation therapy: Lovenox 40 mgLast Dose given: due at [address] [place] [address] medications:magnesium sulfate in sterile water 4 g [...] (MOTRIN) 800 mg ORAL q 8 HHYDROmorphone PLASTIC OUTFITTER 0.5 mg/mL in NaCl 0.9% 100 mL INTRAVENOUS CONTINUOUSHYDROmorphone 0.5 mg/mL PLASTIC OUTFITTER CLINICIAN DOSE 0.2-0.4 mg 0.2-0.4 mgINTRAVENOUS (PACU) PRNHYDROmorphone 0.5 mg/mL PLASTIC OUTFITTER CLINICIAN DOSE 0.2 mg 0.2 mg INTRAVENOUS q 6 HPRNinsulin lispro injection (rapid acting) (HumaLOG) SUBCUTANEOUS q 6 Hheparin 5,000 Units injection 5,000 Units SUBCUTANEOUS q 12 Henoxaparin 40 mg injection (LOVENOX) 40 mg SUBCUTANEOUS DAILYmetoclopramide HCl 10 mg injection (REGLAN) 10 mg INTRAVENOUS q 6 H PRNPHYSICAL EXAM:Patient Vitals for the past 8 hrs: Temp Temp src Pulse Resp SpO2 Height Ngknih54/05/18 0700 - - 87 17 97 % [...] 10/01/2017SIGNATURE: Matilda Raya MD PATIENT NAME: Rocio FrischDATE: October 01, 2017 : 8:47 AM PAGER/CONTACT #: [facility] [phone] [facility] Metabolic Panelon 10-01 Alanine aminotransferase (ALT) 35 U/L Normal 5-50 [facility] Comment on above: Performed By: #### P T, PTT, AMYL, CMP, LIPA, PHOS ####[place] [address]#### TRANSF ####[place] [phone] Albumin 2.6 g/dL Low 3.5-5.0 [facility] Comment on above: Result Comment: Revi ewed Performed By: #### P T, PTT, AMYL, CMP, LIPA, PHOS ####[place] [address]#### TRANSF ####[place] [phone] Alkaline phosphatase (ALP) 70 U/L Normal 40-150 [facility] Comment on above: Performed By: #### P T, PTT, AMYL, CMP, LIPA, PHOS ####[place] [address]#### TRANSF ####[place] [address] Anion gap 12 mmol/L Normal 9-18 [facility] Comment on above: Performed By: #### P T, PTT, AMYL, CMP, LIPA, PHOS ####[place] [address]#### TRANSF ####[place] [address] Aspartate aminotransferase (AST) 32 U/L Normal 7-40 [facility] Comment on above: Performed By: #### P T, PTT, AMYL, CMP, LIPA, PHOS ####[place] [address]#### TRANSF ####[place] [phone] Bilirubin (total) 0.3 mg/dL Normal 0.0-1.5 [facility] [place] Comment on above: Performed By: #### P T, PTT, AMYL, CMP, LIPA, PHOS ####[place] [address]#### TRANSF ####[place] [address] [address] [phone] Calcium 7.7 mg/dL Low 8.5-10.5 [facility] Comment on above: Performed By: #### P T, PTT, AMYL, CMP, LIPA, PHOS ####[place] [address]#### TRANSF ####[place] [phone] Chloride 105 mmol/L Normal 98-110 [facility] Comment on above: Performed By: #### P T, PTT, AMYL, CMP, LIPA, PHOS ####[place] [address]#### TRANSF ####[place] [address] CO2 23 mmol/L Normal 23-32 [facility] Comment on above: Performed By: #### P T, PTT, AMYL, CMP, LIPA, PHOS ####[place] [address]#### TRANSF ####[place] [address] [address] [place] [address] Creatinine 0.78 mg/dL Normal 0.70-1.40 [facility] Comment on above: Performed By: #### P T, PTT, AMYL, CMP, LIPA, PHOS ####[place] [address]#### TRANSF ####[place] [address] [address] [address] eGFR (non-black) mL/min/{1.73_m2} Normal >60 [facility] Comment on above: Performed By: #### P T, PTT, AMYL, CMP, LIPA, PHOS ####[place] [address]18[address]#### TRANSF ####[address] Av[address]inal[address] V[address] [address] Glucose mass conc 145 mg/dL High 65-100 [facility] [place] Comment on above: Performed By: #### P T, PTT, AMYL, CMP, LIPA, PHOS ####[place] [address]#### TRANSF ####[place] [phone] Potassium molar conc 4.8 mmol/L Normal 3.5-5.0 [facility] Comment on above: Performed By: #### P T, PTT, AMYL, CMP, LIPA, PHOS ####[place] [address]#### TRANSF ####[place] [phone] Protein 5.1 g/dL Low 6.0-8.4 [facility] Comment on above: Performed By: #### P T, PTT, AMYL, CMP, LIPA, PHOS ####[place] [address]#### TRANSF ####[place] [address] Sodium 140 mmol/L Normal 135-146 [facility] Comment on above: Performed By: #### P T, PTT, AMYL, CMP, LIPA, PHOS ####[address]#### TRANSF ####[place] [phone] Urea nitrogen 20 mg/dL Normal - [facility] Comment on above: Performed By: #### P T, PTT, AMYL, CMP, LIPA, PHOS ####[facility] [place], [place] [phone]#### TRANSF ####[facility] [address] [place], [place] [phone] HISTORY PHYSICALon 8 HISTORY PHYSICAL HNO ID: [id number] thor: Maria De Jesus Laura) LavprashantkService: Critical CareAuthor Type: ResidentType: HANDPFiled: 10/01/2017 6:13 [...] Date- ANGIOPLASTY HX 05/15/2011 2 stents s/p [place];[facility]- CHOLECYSTECTOMY 08/11/2017 [facility]- PICC LINE INSERT/CONSULT 08/16/2017No family history on [...] 110/88 CVP: 2 Resp: 18 SpO2: 100 %[place] Readings: Not applicableRESPIRATORYMechani rachid Ventilation: No. Supplemental Oxygen: Yes. 2 L NCRecent Labs 09/30/083120THNP 2.3*PHYSICAL EXAMNeuro: AwakePulmonary: Clear to auscultation. Breath [...] (TORADOL) 15 mg INTRAVENOUS q 6 HHYDROmorphone PLASTIC OUTFITTER 0.5 mg/mL in NaCl 0.9% 100 mL INTRAVENOUS CONTINUOUSHYDROmorphone 0.5 mg/mL PLASTIC OUTFITTER CLINICIAN DOSE 0.2-0.4 mg 0.2-0.4 mgINTRAVENOUS (PACU) PRNHYDROmorphone 0.5 mg/mL PLASTIC OUTFITTER CLINICIAN DOSE 0.2 mg 0.2 mg INTRAVENOUS [...] Peripheral Nerve Block ?RECENT LABSRecent Labs 326 09/30/1817P 4.4 -- --MG 1.3* -- --CA 7.7* [...] for today's visit:Most recent labs and imaging results.Assessment/PlanDeoleg Jackson is a 62 year old M, hx of DM, HTN, CAD, s/p PCI with stentplacement, PSH of cholecystectomy, who underwent on 10/01/2015 Whippleprocedure for duodenal mass with distal duodenal distortion.REASON FOR ICU ADMISSION: Close HD monitoringPROCEDURE: Whipple procedureSeen and discussed on rounds with SICU staff: Dr. Junior: epidural in place, Hydromorphone PLASTIC OUTFITTER, ToradolCV: Intermittent hypotension, no vasopressor requiredPulm: CTA [...] 01, 2017 : 5:54 AM PAGER/CONTACT #: [phone] Normal [facility] Magnesiumon 10-01-2017 Magnesium 2.1 mg/dL Normal 1.7-2.6 [facility] Comment on above: Performed By: #### P T, PTT, AMYL, CMP, LIPA, PHOS ####[facility] [place], [place] [phone]#### TRANSF ####[facility] [place], [place] [phone] Magnesium 1.3 mg/dL Low 1.7-2.6 [facility] Comment on above: Performed By: #### P T, PTT, AMYL, CMP, LIPA, PHOS ####[facility] [place], [place] [phone]#### TRANSF ####[facility] [address] [place], [place] [phone] NURSING PROGon 10-01-2017 NURSING PROG HNO ID: [id number] thor: Cee (Rn) MOUSTAPHA Dialervice: (none)Author Type: Registered NurseType: Nursing Progress NoteFiled: 10/01/2017 7:58 PMNote Text: Nursing Progress NotePatient Name: Rocio JacksonMRN: [id number] Location: [facility]/BP-RYT-21 ___Daily Note:1900: Bedside report received from previous shift RN.This note was completed by: Cee Dial RN [facility] NURSING PROG HNO ID: [id number] thor: Marysol (Rn) MOUSTAPHA Agervice: Critical CareAuthor Type: Registered NurseType: Nursing Progress NoteFiled: 10/01/2017 1:35 PMNote Text: Nursing Progress NotePatient Name: Rocio JacksonMRN: [id number] Location: [facility]/SE-QMS-04 ___Daily Note:07-bedside report received from Reed BATEMAN.07- surgical team at bedside to assess patient. 1 L LR bolus ordered forhypotension.1125- Dr. Raya text paged SICU 7 D.F.-- Patient's SBP continues to remainlow after 2 fluid boluses, Dr. Boothe asked that I page pain management tosee if it would be appropriate to decrease the basal rate on his epidural.Thank you, Laura RN [phone] . Dr. Raya returned page, will place order todecrease basal rate of epidural to 4cc/hr.1330- Dr. Kevin sharpe paged SICU 7 D.F.-- patient's urine output has yqsi39qk/hr x2 hours. Blood pressure has improved, we decreased the basal rateof his epidural. Also, he would like throat spray, his throat is sore.Thank you, Laura RN [phone] This note was completed by: Marysol Ag, KEVIN [facility] NURSING PROG HNO ID: [id number] thor: Radha Ndiaye NsService: (none)Author Type: (none)Type: Nursing Progress NoteFiled: 10/01/2017 6:01 AMNote Text: Nursing Progress NotePatient Name: Rocio HayesN: [id number] Location: [place] [address]/WG-MOJ-01 ___Daily Note:1909- Report complete. VSS on 6L via VM d/t both nares occupiedby NG/Corpak. No distress no needs.1999- See doc flow for assessment.2044- Made JR SROC Dr barton aware of low bp. No recent changes inmedication or given meds to cause hypotension. See order for 1L IVF LR xnow.0- BP improving.0000- No signficant changes. JPs emptied sangeous output.399- reassessment complete with no significant changes, see flowsheet.Labs and amylase drawn and vwzl2214- MD notified of low magnesium level, waiting for mag replacement tocome up from hoeuyrsp0916- Report given to day shift nurseThis note was completed by: Reed Rincon RN [facility] NUTRITIONon 10-01-2017 NUTRITION HNO ID: [id number] thor: Bailey Crouch: Nutrition TherapyAuthor Type: Registered DietitianType: NutritionFiled: 10/01/2017 [...] mass 09/30, who was admitted to the [facility] further care.Present Diet Order: NPO and [...] 81 kgResting Metabolic Rate: 1599Estimated kilocalorie needs: 0595-9473 kilocalories determined by 20-25kcal/kgEstimated protein needs: 105-138 grams determined by 1.3-1.7 g/kg DosingweightEstimated fluid needs: 9648-7915 milliliters based on 1 mL per kcalNUTRITION [...] lb 12.7 oz) SpO2 95% BMI 27.19 kg/i4Pqjtjt Labs GLUC 145*BUN 20CREAT 0.78NA 140K 4.8CHLOR [...] (TORADOL) 15 mg INTRAVENOUS q 6 HHYDROmorphone PLASTIC OUTFITTER 0.5 mg/mL in NaCl 0.9% 100 mL INTRAVENOUS CONTINUOUSHYDROmorphone 0.5 mg/mL PLASTIC OUTFITTER CLINICIAN DOSE 0.2-0.4 mg 0.2-0.4 mgINTRAVENOUS (PACU) PRNHYDROmorphone 0.5 mg/mL PLASTIC OUTFITTER CLINICIAN DOSE 0.2 mg 0.2 mg INTRAVENOUS [...] October 01, 2017 : 1:49 PM PAGER: [phone] further assistance and weekends please page the Group [phone] [facility] PROGRESSon 10-01-2017 PROGRESS HNO ID: [id number] thor: Rick Stinson: Critical CareAuthor Type: PhysicianType: [...] theabove surgeryNeuro:- Analgesia: Tylenol, toradol/Motrin, bupivacaine, dilaudid PLASTIC OUTFITTER onceepidural removed- Anxiety/Sedation: NoneCardiovascular:- ASA 162- statin- [...] discussed with ICU Staff Dr. Boothe.Kolby Brown MDGenest. elizabeth hospital Surgery[C]: [phone] [P]: 17569Hrne: 10/01/2017Time: 9:59 AMSubjective:Interval Events: NAEON. Pain controlled. Thirsty. Slept ok.Physical Exam:BP 110/88 Pulse 87 Temp 37.4 ?C (99.3 ?F) (Oral) Resp 17 Ht 172.7cm (5' 7.99 ) Wt 81.1 kg (178 lb 12.7 oz) SpO2 97% BMI 27.19 kg/e7CKFRDXK: Well appearing 62 year old male in no distressNEURO: AAox3, ZKW39USYBS: Corpak/NGT in placeCHEST: nonlabored breathing on RA. NL rate and rhythmABDOMEN: Soft, non-distended, mildly tenderEXTREMITIES: Warm well perfused, no deformitiesLabs:CBC, BMP, MG, PHOSRecent Labs 32100 809509/02/1803WBC 8.38 8.24 7.14 7.49 4.87 4.43 4.93HB [...] 0.3 0.4LACT -- 2.3* -- --CoagsRecent Labs 09/24/18083 08/15/18205APTT 25.9 24.9 -- -- 39.8* 31.6INR 1.2 1.1 1.0 2.0* 2.0* 1.5*Intake and Output:Date 09/30/17699 - 10/01/17 0659 10/01/17699 - 10/02/17 0659Shift 7053-5692 4988-8564 6306-9304 24 Hour Total 4803-1585 0613-98946708-1211 24 Hour TotalINTAKE IV 3240.1 1967 5207.1 IVPB 28.1 28.1 LR 3211 1966 5179 Blood Products 1053 1053 PRBC Intake (mL) 1050 1050 Packed Red Blood Cells Number of Units 3 3 Shift Total 1053 3240.1 1966 6260.1OUTPUT Urine 670 290 960 40 40 [...] BMs 0 x 0 x Shift Total 102 696 2621 40 40Weight (kg) 81.1 81.1 81.1 81.1 [...] (MOTRIN) 800 mg ORAL q 8 HHYDROmorphone PLASTIC OUTFITTER 0.5 mg/mL in NaCl 0.9% 100 mL INTRAVENOUS CONTINUOUSHYDROmorphone 0.5 mg/mL PLASTIC OUTFITTER CLINICIAN DOSE 0.2-0.4 mg 0.2-0.4 mgINTRAVENOUS (PACU) PRNHYDROmorphone 0.5 mg/mL PLASTIC OUTFITTER CLINICIAN DOSE 0.2 mg 0.2 mg INTRAVENOUS [...] 5 mg tab Take by mouth once daily.[facility] STAFF PHYSICIAN SUPERVISING RESIDENTI have reviewed the [...] Transferring to surgical floor whenbed available. SIGNATURE: Rick Boothe, MDDATE of SERVICE: 10/01/2017TIME of SERVICE: 1:30 PM Normal [facility] PROGRESS HNO ID: [id number] thor: Michael Cedillo) AugustinService: General SurgeryAuthor Type: PhysicianType: Progress NotesFiled: 10/01/2017 1:19 PMNote Text:GENERAL SURGERY RESIDENT PROGRESS NOTEAssessment/Plan62 year old male hx HTN, DM, CAD s/p PCI, who underwent a classic whipplefor an obstructing duodenal mass 09/30, who was admitted to the SICU forfurther care.Plan:Start TF at trickle and ok to advance to goalCheck ROMINA amylase x2D/c NGTAnticipate ok to Tx to RNF in PM if pressures are betterContinue EpiduralCaleb MD JaneGeneral Surgery, [id number] Pager: [phone], General Surgery Pager [phone]/11/13 9:19 AMPlease page [phone] on weekends and between 6 PM and 6 AM.SubjectiveINTERVAL HPI :Acute events overnight: none. Pain: w/c. Nausea: No. Vomiting: No. Flatus:No. Bowel movement: No. No other complaints.ObjectivePHYSICAL EXAM:General Appearance: in bed in NADLungs: nonlabored breathingAbdomen: soft, appropriately-tender, non-distendedIncisions:small amount of blood on dressingDrains:serosang x2Labs:CBC, BMP, MG, PHOSRecent Labs 100 09/24/1808WBC 8.38 8.24 7.14 7.49 4.87 4.43 4.93HB [...] (MOTRIN) 800 mg ORAL q 8 HHYDROmorphone PLASTIC OUTFITTER 0.5 mg/mL in NaCl 0.9% 100 mL INTRAVENOUS CONTINUOUSHYDROmorphone 0.5 mg/mL PLASTIC OUTFITTER CLINICIAN DOSE 0.2-0.4 mg 0.2-0.4 mgINTRAVENOUS (PACU) PRNHYDROmorphone 0.5 mg/mL PLASTIC OUTFITTER CLINICIAN DOSE 0.2 mg 0.2 mg INTRAVENOUS q 6 HPRNinsulin lispro injection (rapid acting) (HumaLOG) SUBCUTANEOUS q 6 Hheparin 5,000 Units injection 5,000 Units SUBCUTANEOUS q 12 Henoxaparin 40 mg injection (LOVENOX) 40 mg SUBCUTANEOUS DAILYmetoclopramide HCl 10 mg injection (REGLAN) 10 mg INTRAVENOUS q 6 H PRN Normal [facility] Phosphoruson 10-01-2017 Phosphate 3.0 mg/dL Normal 2.5-4.5 [facility] Comment on above: Performed By: #### P T, PTT, AMYL, CMP, LIPA, PHOS ####[phone]#### TRANSF ####[place] [id number] [place] [phone] Phosphate 4.4 mg/dL Normal 2.5-4.5 [facility] Comment on above: Performed By: #### P T, PTT, AMYL, CMP, LIPA, PHOS ####[phone]#### TRANSF ####[place] [phone] THERAPY NTon 10-01-2017 THERAPY NT HNO ID: [id number] thor: Son Salgado (Pt) ChandanaService: Physical TherapyAuthor Type: Physical TherapistType: Therapy (PT/OT/Speech/Resp)Filed: 10/01/2017 6:13 PMNote Text:Physical Therapy EvaluationSERVICE DATE: 10/01/2017SERVICE TIME: 1010 to 1045ROOM: [id number] Discharge Disposition: Acute RehabJustification For Post Acute Needs: Anticipate patient will tolerate 3hours of daily therapy at the time of admission to post-acutesetnyu langone [facility];Cognition intact;Medically complex;Willing to participate;Livingthe community premorbidly;Good family [...] Reduced mobility-other;Muscle Weakness (generalized)Interventions Provided: Evaluation;Therapeutic Activity (66463)$ Evaluation-Moderate (28137) Billed Units: 1 unitTherapeutic Activity (42987) Treatment Minutes: 101 unitSkilled Intervention(s): Instructed patient [...] mobility assessmentRelevant Past Medical History: HTN, DM, DE, richelle 08/11/17, ARF, refer tochart for full [...] Assistance;Other: See Comment (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, 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)Assistance Required With: Cleaning;Laundry;Meals;Other : See Comment(Shares IADL's)OBJECTIVE:CURRENT [...] evaluation/treatment.SIGNATU RE: Son Ellington, PT PATIENT NAME: Rociomarisa JacksonDATE: October 01, 2017 : 6:08 PM PAGER/CONTACT #: [phone] [facility] ANES Ila 09-30-2017 ANES POST HNO ID: [id number] thor: Bogdan Montenegro, IService: AnesthesiologyAuthor Type: AnesthesiologistType: [...] 30, 2017 : 5:52 PM PAGER/CONTACT #: [phone] [facility] ANES PREOPon 09-30-2017 ANES PREOP HNO ID: [id number] thor: Brian BarriossService: AnesthesiologyAuthor Type: AnesthesiologistType: Anesthesia PreOpFiled: 09/30/2017 8:34 AMNote Text:REGIONAL ANESTHESIOLOGY DAY OF SURGERY NOTEPATIENT NAME: Rocio JacksonMRN: [id number]: 1955Procedure(s) (LRB):LAPAROSCOPY DIAGNOSTIC (N/A)WHIPPLE PROCEDURE, WITH PANCREATOJEJUNOST [...] with exertion.Denies change in functional capacity.Denies GERD.HTNNIDMHx DE s/p stent 2010; no issues sinceBaseline anemiaChronic [...] Date- ANGIOPLASTY HX 05/15/2011 2 stents s/p [place];[facility]- CHOLECYSTECTOMY 08/11/2017 [facility]- PICC LINE INSERT/CONSULT 08/16/2017No family history on [...] by mouth once daily.Inpatient medications reviewed in [facility].I have interviewed and examined the patient. I have reviewed the medicalrecord and/or the pre-anesthesia evaluation, pertinent labs, and testresults.Significant changes in the patient's condition since the History andPhysical, not otherwise documented in primary service progress notes: NoThis contains updated information obtained within 48 hours ofSurgery/Procedure.SIGNATUR E: Brian Orona MD PATIENT NAME: Rocio Sibley: September 30, 2017 : 8:29 AM PAGER/CONTACT #: [phone] (pager) Normal [facility] APTTon 09-30-2017 aPTT 25.9 s Normal 23.0-32.4 [facility] Comment on above: Result Comment: Unfr actionated [...] laboratory APTT reagent in use throughout the [facility]. Performed By: #### P T, PTT, AMYL, CMP, LIPA, PHOS ####[facility] [place], [place] [phone]#### TRANSF ####[facility] [address] [place], [place] [phone] BRIEF OP NOTon 09-30-2017 BRIEF OP NOT HNO ID: [id number] thor: Mundo Merchant)(Hist) SiderisService: General SurgeryAuthor Type: ResidentType: Brief Op NoteFiled: 09/30/2017 5:02 PMNote Text:BRIEF OP NOTELOG ID: [id number]/Procedure Date: 09/30/2017Incision/Procedure Start Time: 9:40 AMIncision Close/Procedure End Time: 4:46 PMSurgeon(s)/Proceduralist(s ) and Cofounder(s):Surgeon(s) and Role: * Michael Cedillo) Jolley - Primary * Mundo (Georges)(Hist) Kay - Resident - AssistingProcedure(s): diagnostic laparoscopy, [...] sameSIGNATURE: Mundo Villanueva MD PATIENT NAME: Rocio VizcarraTE: September 30, 2017 : 4:58 PM PAGER/CONTACT #: Normal [facility] CBCon 09-30-2017 Erythrocyte distribution width Auto Ratio (RBC) 16.2 % High 11.5-15.0 [facility] Comment on above: Performed By: #### P T, PTT, AMYL, CMP, LIPA, PHOS ####[place] [address]#### TRANSF ####[place] [address] Erythrocytes (RBC) 3.96 10*6/uL Low 4.20-6.00 [facility] Comment on above: Performed By: #### P T, PTT, AMYL, CMP, LIPA, PHOS ####[place] [address]#### TRANSF ####[place] [address] Hematocrit (HCT) 30.7 % Low 39.0-51.0 [facility] Comment on above: Performed By: #### P T, PTT, AMYL, CMP, LIPA, PHOS ####[place] [address]#### TRANSF ####[place] [address] Hemoglobin mass conc (Bld) 10.1 g/dL Low 13.0-17.0 [facility] Comment on above: Performed By: #### P T, PTT, AMYL, CMP, LIPA, PHOS ####[place] [address]#### TRANSF ####[place] [phone] MCH 25.5 pG Low 26.0-34.0 [facility] Comment on above: Performed By: #### P T, PTT, AMYL, CMP, LIPA, PHOS ####[place] [address]#### TRANSF ####[place] [phone] MCHC mass conc (RBC) 32.9 g/dL Normal 30.5-36.0 [facility] Comment on above: Performed By: #### P T, PTT, AMYL, CMP, LIPA, PHOS ####[place] [address]#### TRANSF ####[place] [phone] MCV 77.5 fL Low 80.0-100.0 [facility] Comment on above: Performed By: #### P T, PTT, AMYL, CMP, LIPA, PHOS ####[place] [address]#### TRANSF ####[place] [phone] Platelet mean volume (PMV) 9.4 fL Normal 9.0-12.7 [facility] Comment on above: Performed By: #### P T, PTT, AMYL, CMP, LIPA, PHOS ####[place] [address]#### TRANSF ####[place] [phone] Platelets 242 10*3/uL Normal 150-400 [facility] Comment on above: Performed By: #### P T, PTT, AMYL, CMP, LIPA, PHOS ####[place] [address]#### TRANSF ####[place] [phone] WBC (Leukocytes) 7.14 10*3/uL Normal 3.70-11.00 [facility] Comment on above: Performed By: #### P T, PTT, AMYL, CMP, LIPA, PHOS ####[place] [address]#### TRANSF ####[place] [phone] CBC and Differentialon 09-30 Abs Baso <0.03 Normal <0.11 [facility] Comment on above: Performed By: #### P T, PTT, AMYL, CMP, LIPA, PHOS ####[place] [address]#### TRANSF ####[place] [phone] Abs Vance 0.48 k/uL Normal <0.87 [facility] Comment on above: Performed By: #### P T, PTT, AMYL, CMP, LIPA, PHOS ####[place] [address]#### TRANSF ####[place] [phone] Abs Neut 6.37 k/uL Normal 1.45-7.50 [facility] Comment on above: Performed By: #### P T, PTT, AMYL, CMP, LIPA, PHOS ####[place] [address]#### TRANSF ####[place] [phone] Basophils/100 WBC Auto (Bld) 0.0 % Normal [facility] Comment on above: Performed By: #### P T, PTT, AMYL, CMP, LIPA, PHOS ####[place] [address]#### TRANSF ####[address] AvReginald Ville [phone] DTYPE Auto Diff Normal [facility] Comment on above: Performed By: #### P T, PTT, AMYL, CMP, LIPA, PHOS ####[place] [address]#### TRANSF ####[place] [phone] Eosinophils 10*3/uL Normal <0.46 [facility] Comment on above: Performed By: #### P T, PTT, AMYL, CMP, LIPA, PHOS ####[place] [address]#### TRANSF ####[place] [phone] Eosinophils/100 leukocytes 0.0 % Normal [facility] Comment on above: Performed By: #### P T, PTT, AMYL, CMP, LIPA, PHOS ####[place] [address]#### TRANSF ####[place] [phone] Erythrocyte distribution width Auto Ratio (RBC) 15.9 % High 11.5-15.0 [facility] Comment on above: Performed By: #### P T, PTT, AMYL, CMP, LIPA, PHOS ####[place] [address]#### TRANSF ####[place] [phone] Erythrocytes (RBC) 3.70 10*6/uL Low 4.20-6.00 [facility] Comment on above: Performed By: #### P T, PTT, AMYL, CMP, LIPA, PHOS ####[place] [address]#### TRANSF ####[place] [phone] Hematocrit (HCT) 28.9 % Low 39.0-51.0 [facility] Comment on above: Performed By: #### P T, PTT, AMYL, CMP, LIPA, PHOS ####[place] [id number]#### TRANSF ####[place] [id number] Hemoglobin mass conc (Bld) 9.4 g/dL Low 13.0-17.0 [facility] Comment on above: Performed By: #### P T, PTT, AMYL, CMP, LIPA, PHOS ####[place] [id number]#### TRANSF ####[place] [id number] Lymphocytes 1.39 10*3/uL Normal 1.00-4.00 [facility] Comment on above: Performed By: #### P T, PTT, AMYL, CMP, LIPA, PHOS ####[place] [id number]#### TRANSF ####[place] [id number] Lymphocytes/100 leukocytes 16.9 % Normal [facility] Comment on above: Performed By: #### P T, PTT, AMYL, CMP, LIPA, PHOS ####[place] [id number]#### TRANSF ####[place] [id number] MCH 25.4 pG Low 26.0-34.0 [facility] Comment on above: Performed By: #### P T, PTT, AMYL, CMP, LIPA, PHOS ####[place] [address]#### TRANSF ####[place] [phone] MCHC mass conc (RBC) 32.5 g/dL Normal 30.5-36.0 [facility] Comment on above: Performed By: #### P T, PTT, AMYL, CMP, LIPA, PHOS ####[place] [address]#### TRANSF ####[place] [phone] MCV 78.1 fL Low 80.0-100.0 [facility] Comment on above: Performed By: #### P T, PTT, AMYL, CMP, LIPA, PHOS ####[place] [address]#### TRANSF ####[place] [address]65734[address] Monocytes/100 leukocytes 5.8 % Normal [facility] Comment on above: Performed By: #### P T, PTT, AMYL, CMP, LIPA, PHOS ####[place] [address]#### TRANSF ####[place] [address]65734[address] Neutrophils/100 WBC Auto (Bld) 77.3 % Normal [facility] Comment on above: Performed By: #### P T, PTT, AMYL, CMP, LIPA, PHOS ####[place] [address]#### TRANSF ####[place] [phone] Platelet mean volume (PMV) 9.7 fL Normal 9.0-12.7 [facility] Comment on above: Performed By: #### P T, PTT, AMYL, CMP, LIPA, PHOS ####[place] 291826[address]#### TRANSF ####[place] [phone] Platelets 231 10*3/uL Normal 150-400 [facility] Comment on above: Performed By: #### P T, PTT, AMYL, CMP, LIPA, PHOS ####[place] [address]#### TRANSF ####[place] [phone] WBC (Leukocytes) 8.24 10*3/uL Normal 3.70-11.00 [facility] Comment on above: Performed By: #### P T, PTT, AMYL, CMP, LIPA, PHOS ####[place] [address]#### TRANSF ####[place] [phone] Comp Metabolic Panelon 09-30 Alanine aminotransferase (ALT) 46 U/L Normal 5-50 [facility] Comment on above: Performed By: #### P T, PTT, AMYL, CMP, LIPA, PHOS ####[place] [address]#### TRANSF ####[place] [phone] Albumin 3.1 g/dL Low 3.5-5.0 [facility] Comment on above: Performed By: #### P T, PTT, AMYL, CMP, LIPA, PHOS ####[place] 291826[address]#### TRANSF ####[place] [address] Alkaline phosphatase (ALP) 91 U/L Normal 40-150 [facility] Comment on above: Performed By: #### P T, PTT, AMYL, CMP, LIPA, PHOS ####[place] [address]#### TRANSF ####[place] [address]65734[address] Anion gap 11 mmol/L Normal 9-18 [facility] Comment on above: Performed By: #### P T, PTT, AMYL, CMP, LIPA, PHOS ####[place] [address]#### TRANSF ####[place] [address]65734[address] Aspartate aminotransferase (AST) 48 U/L High 7-40 [facility] Comment on above: Performed By: #### P T, PTT, AMYL, CMP, LIPA, PHOS ####[place] [address]#### TRANSF ####[place] [address]65734[address] Bilirubin (total) 0.5 mg/dL Normal 0.0-1.5 [facility] [place] Comment on above: Performed By: #### P T, PTT, AMYL, CMP, LIPA, PHOS ####[place] [address]#### TRANSF ####[place] [address]65734[address] Calcium 7.8 mg/dL Low 8.5-10.5 [facility] Comment on above: Performed By: #### P T, PTT, AMYL, CMP, LIPA, PHOS ####[place] [address]#### TRANSF ####[place] [address] Chloride 105 mmol/L Normal 98-110 [facility] Comment on above: Performed By: #### P T, PTT, AMYL, CMP, LIPA, PHOS ####[place] [address]#### TRANSF ####[place] [address] CO2 24 mmol/L Normal 23-32 [facility] Comment on above: Performed By: #### P T, PTT, AMYL, CMP, LIPA, PHOS ####[place] [address]#### TRANSF ####[place] [address]65734[address] Creatinine 0.65 mg/dL Low 0.70-1.40 [facility] Comment on above: Performed By: #### P T, PTT, AMYL, CMP, LIPA, PHOS ####[place] [address]#### TRANSF ####[place] [address] eGFR (non-black) mL/min/{1.73_m2} Normal >60 [facility] Comment on above: Performed By: #### P T, PTT, AMYL, CMP, LIPA, PHOS ####[place] [address]#### TRANSF ####[place] [address] Glucose mass conc 157 mg/dL High 65-100 [facility] [place] Comment on above: Performed By: #### P T, PTT, AMYL, CMP, LIPA, PHOS ####[place] [address]#### TRANSF ####[place] [address] Potassium molar conc 4.9 mmol/L Normal 3.5-5.0 [facility] Comment on above: Performed By: #### P T, PTT, AMYL, CMP, LIPA, PHOS ####[address]#### TRANSF ####[place] [address] Protein 5.8 g/dL Low 6.0-8.4 [facility] Comment on above: Performed By: #### P T, PTT, AMYL, CMP, LIPA, PHOS ####[place] [address]#### TRANSF ####[place] [address] Sodium 140 mmol/L Normal 135-146 [facility] Comment on above: Performed By: #### P T, PTT, AMYL, CMP, LIPA, PHOS ####[place] [address]#### TRANSF ####[place] [address] Urea nitrogen 18 mg/dL Normal 10-25 [facility] Comment on above: Performed By: #### P T, PTT, AMYL, CMP, LIPA, PHOS ####[place] [address]#### TRANSF ####[place] [phone] Fibrinogenon 09-30-2017 Fibrinogen 257 mg/dL Normal 200-400 [facility] Comment on above: Performed By: #### P T, PTT, AMYL, CMP, LIPA, PHOS ####[place] [address]#### TRANSF ####[facility] [place], [place] [phone] Lactateon 09-30-2017 Lactate 2.3 mmol/L High 0.4-2.0 [facility] Comment on above: Performed By: #### P T, PTT, AMYL, CMP, LIPA, PHOS ####[facility] [place] [phone]#### TRANSF ####[facility] [place], [place] [phone] NURSING PROGon 09-30-2017 NURSING PROG HNO ID: [id number] thor: Sandrita (Rn) Bhupinder Guerra: (none)Author Type: Registered NurseType: Nursing Progress NoteFiled: 09/30/2017 4:15 PMNote Text: Nursing Progress NotePatient Name: Rocio JacksonMRN: [id number] Location: /AO-YJYC-21 ____Daily Note:1043- family updated via pager [id number]- family updated vis pager [id number]- family updated via pager [id number]- family updated via pager [id number]- family updated via pager [id number] Family update via pager [id number] family notified of closure start time. Requested family to return Rajat waiting roomThis note was completed by: Sandrita Guerra RN [facility] NURSING PROG HNO ID: [id number] thor: Kevin KenRn) Bhupinder Beltran: (none)Author Type: Registered NurseType: Nursing Progress NoteFiled: 09/30/2017 9:46 AMNote Text: Nursing Progress NotePatient Name: Rocio JacksonMRN: [id number] Location: /XK-ZYTK-50 ____ Patient's family updated at 9:44 AM about status of procedure per MD Ainsley.This note was completed by: Kevin Beltran, RN [facility] NURSING PROG HNO ID: [id number] thor: Mirian (Rn) Milvia Collins, RNService: NursingAuthor Type: Registered NurseType: Nursing Progress [...] 15 degree and side rails up X2. [facility] OPERATIVE NOon 09-30-2017 OPERATIVE NO HNO ID: [id number] thor: Michael Cedillo) Trenaervice: General SurgeryAuthor Type: PhysicianType: Operative ReportFiled: 10/05/2017 7:03 PMNote Text:[facility] - Operative ReportFRISCH, DEANDOB: 1955 AGE: 62 SEX: MMRN: [id number] ACCTNUM: [id number] [place] [facility] LOCATION: [address] PHYSICIAN: Michael Jolley MDDATE OF PROCEDURE: 09/30/2017PREOPERATIVE DIAGNOSIS:1. Duodenal cancer.2. Gastric outlet obstruction.3. Biloma status post percutaneous drainage.4. Hematoma in the gallbladder fossa.POSTOPERATIVE DIAGNOSIS: Same.NAME OF OPERATION:1. Diagnostic laparoscopy.2. Pancreatic duodenectomy.SURGEON: ABIDA LomeliISTANT: Mundo Villanueva M.D.ANESTHESIA: General endotracheal anesthesia.COMPLICATIONS: None.ESTIMATED BLOOD LOSS: 5 cc.SPECIMENS:1. Pancreatic duct margin.2. Duodenal margin.3. Bile duct margin.4. Pancreatoduodenectomy specimen.5. Common bile duct stent.6. Periportal lymph node.7. Pyloric and duodenal staple line.WOUND CLASS: C.DRAINS: A pancreatic drain from the left side and ahepaticojejunostomy drain from the right side.INDICATION: The patient is a pleasant 62-year-old male who was [facility] with intraabdominal abscesses afterhaving undergone a cholecystectomy on hind site. He underwent anEGD which revealed a duodenal cancer and subsequently wastransferred to [facility]. He at the time of that admission [...] for the start time and the end time.Michael Jolley, [facility]ITALept Of SurgeryTA:[id number]:02/2018jhD: 10/02/2017 17:34:33T: 10/03/2017 03:14:36Job #: [id number] [facility] PROCEDUREon 09-30-2017 PROCEDURE HNO ID: [id number] thor: Yrn Cedillo) Trishe: Pain ManagementAuthor Type: [...] applicable), Prep and Dry Time(if applicable). Time: 0818Affirmation of Time Out: YESSign Out Discussion: CompletedPre [...] 30, 2017 : 10:40 AM PAGER/CONTACT #: [phone] [facility] PT EDon 09-30-2017 PT ED HNO ID: [id number] thor: Celina KenRnMOUSTAPHA Allenervice: NursingAuthor Type: Registered NurseType: Patient EducationFiled: 09/30/2017 8:51 AMNote Text:PATIENT EDUCATION TOPIC: PROCEDURE / SURGERY: Pre-op Teaching: SurgicalSafety PrinciplesPATIENT NAME: Rocio Boudreaux: [id number] LOCATION: [place] [id number] S TO LEARNCOGNITIVE ABILITY: Alert and orientedMOTIVATION TO LEARN: EagerFAMILY SUPPORT: High - Very involved in pt careINSTRUCTION PROVIDED TO: Patient and family memberPATIENT LEARNS BEST BY: Individual InstructionFACTORS AFFECTING LEARNING: NonePHYSICAL LIMITATIONS AFFECTING LEARNING: Other Limitations MEMORY LOSSLEARNING RESPONSEDIAGNOSIS: ADULT: WHIPPLEPATIENT/FAMILY RESPONSE: Verbalizes understanding of: RZG-[id number]-Ba rrect action to take to follow pre-operative instructionsMETHOD OF INSTRUCTION: Individual instructionFOLLOW-UP PLAN: Complete - No need for follow-upINSTRUCTIONAL AIDS USED: NASUPPLEMENTAL MATERIAL PROVIDED TO PATIENT: NoneREFERRAL (RECOMMENDATION): NoneElectronically Signed By: Celina Wagner RN Normal [facility] Protimeon 09-30-2017 INR Coag RelTime (Bld) 1.2 {INR} Normal 0.9-1.3 [facility] Comment on above: Result Comment: Tayler min K Antagonist (VKA) Therapeutic Range: INR 2 to 3 (Target INR of 2.5)Note: For patients treated with VKA drugs, such as warfarin, the [employer] 2012 Guideline recommends [...] of 2.5 to 3.5 (target INR of 3).Gabrieltt GH, et al. Chest 2012, 141:7S-47SNishimura RA, et al. JAC 2017, 70: 252-289 Performed By: #### P T, PTT, AMYL, CMP, LIPA, PHOS ####[facility] [place], [place] [phone]#### TRANSF ####[facility] [place], [place] [phone] PT Sec 12.2 sec Normal 9.7-13.0 [facility] Comment on above: Performed By: #### P T, PTT, AMYL, CMP, LIPA, PHOS ####[facility] [place], [place] [phone]#### TRANSF ####[facility] [place], [place] [phone] SURGICAL PATHOLOGYon 018 SURGICAL PATHOLOGY [facility]: [id number] Physician: MICHAEL JOLLEY MD FINAL DIAGNOSIS1. Duodenal [...] for malignancy. (Dr. Parker)Intraoperative diagnosis performed at [facility], [address] [place] [address] GROSS DESCRIPTIONA. Received fresh for frozen section [...] for frozen then for permanentin one cassette. BF/dss 09/30/2017D. Received in formalin designated pancreaticoduodenectomy is [...] cmin greatest dimension. A photograph is taken. Road Patcher sections aresubmitted as follows: D1 perpendicular proximal duodenal margin, G1dqvgcodjgiwpz distal duodenal margin, D3 pancreatic neck shave [...] minimally attached fibrofatty tissuewhich is grossly unremarkable. Road Patcher sections are submitted asfollows: E1 perpendicular margins, [...] 0.7 cm.Sectioning does not reveal any masses. Road Patcher sections aresubmitted as follows: G1 perpendicular proximal margin, G2 perpendiculardistal margin, G3 pylorus, G4 shave margin mucosal covered tissue withstaple line. BF/glw 10/01/2017 Gross examination performed at [facility], [address] [place] [address] of Report: 10/13/2017Date of Procedure: 09/30/2017Date of Receipt: 09/30/2017Submitted by: MICHAEL JOLLEY MDLocation: [id number] interpretation performed at [facility], [address] [place] [id number]. Normal [facility] Comment on above: Performed By: #### P T, PTT, AMYL, CMP, LIPA, PHOS ####[place] [address] [place], [place] [phone]#### TRANSF ####[facility] [address] [place], [place] [phone] Wound Culture/Stainon 2017 Wound Culture/Stain Smear Result [...] <=2 FVancomycin SUSCEPTIBLE 1 F Critically abnormal [facility] Comment on above: Performed By: #### P T, PTT, AMYL, CMP, LIPA, PHOS ####[facility] [place], [place] [phone]#### TRANSF ####[facility] [address] [place], [place] [phone] NURSING PROGon 09-25-2017 NURSING PROG HNO ID: [id number] thor: Zaira (Rn) Amanuel, RNService: NeurosurgeryAuthor Type: Registered NurseType: Nursing Progress NoteFiled: 09/29/2017 4:23 PMNote Text:PACC Nurse Progress NoteHistory AND Physical:PACC Visit Date: 0-83-00Gnaffrqb HANDP Date: N/AED visit Date: N/AOutside HANDP Scanned Date: N/ALabs Within Last 6 Months:CBC: Date 09-24 low hgb, but improved from previousBMP/CMP: Date 09-24PT: Date 09-24PTT: Date 09-24TYPE AND SCREEN: Date 09-24Imaging Within Last 12 Months:N/ACardiac Testing:EKG in last 12 Months: Yes: Date: 08-22-17, Comment: N/ABMI Percentile (PEDS):N/ARisk Assessment:Cardiac Date: Dr Abreu pending, N/A and pendingAnesthesia Review:N/ANarrative:N/APre-o p Considerations:N/AChart Check:IN PROGRESS 4-2 stress test expected for cardiac optimization by Gerald Freeman, RNMarch 2017 8:38 AMADDEND:Cardiac Optimization: Dr. Abreu, letter scanned in [facility] 09-29-17.Chart Check:Zackary Beverly 2017 3:05 PM Normal [facility] ALLIED HEALTHon 09-24-2017 ALLIED HEALTH HNO ID: [id number] thor: Jennifer Win CtService: (none)Author Type: (none)Type: Allied HealthFiled: 09/24/2017 10:49 AMNote Text: Radiology Service Progress NotePATIENT NAME: Rocio Boudreaux: [id number] OF SERVICE: September 24, 2017TIME: 10:48 AMPATIENT IDENTITY VERIFICATION COMPLETED USING TWO (2) METHODS: Patientconfirmed name verbally and ID band matches..PATIENT GENDER DATA: MalePATIENT RELEVANT IMPLANT DATA REVIEWED: Not ApplicableRADIOLOGY DEPARTMENT: CT; Exam(s) Completed: Pancreas and PelvisPERIPHERAL IV DATA: Site assessment: Clean,Dry and Intact, Sitedisposition DiscontinuedSIGNED BY: Jennifer Win CtMer[facility] 2017 10:48 AM Normal [facility] APTTon 09-24-2017 aPTT 24.9 s Normal 23.0-32.4 [facility] Comment on above: Result Comment: Unfr actionated [...] laboratory APTT reagent in use throughout the [facility]. Performed By: #### P T, PTT, AMYL, CMP, LIPA, PHOS ####[address] [phone]#### TRANSF ####[place] [address] [place], [place] [phone] CA 19-9on 09-24-2017 [place] 19-9 15 U/mL Normal <36 [facility] Comment on above: Result Comment: Test analyzed by the [employer] DxI method. Performed By: #### P T, PTT, AMYL, CMP, LIPA, PHOS ####[address] [phone]#### TRANSF ####[address] [phone] CBC and Differentialon 09-24 Abs Baso <0.03 Normal <0.11 [facility] Comment on above: Performed By: #### P T, PTT, AMYL, CMP, LIPA, PHOS ####[place] [address]#### TRANSF ####[place] [address] Abs Vance 0.57 k/uL Normal <0.87 [facility] Comment on above: Performed By: #### P T, PTT, AMYL, CMP, LIPA, PHOS ####[place] [address]#### TRANSF ####[place] [address] Abs Neut 3.92 k/uL Normal 1.45-7.50 [facility] Comment on above: Performed By: #### P T, PTT, AMYL, CMP, LIPA, PHOS ####[place] [address]#### TRANSF ####[place] [address] Basophils/100 WBC Auto (Bld) 0.3 % Normal [facility] Comment on above: Performed By: #### P T, PTT, AMYL, CMP, LIPA, PHOS ####[place] [address]#### TRANSF ####[place] [address] DTYPE Auto Diff Normal [facility] Comment on above: Performed By: #### P T, PTT, AMYL, CMP, LIPA, PHOS ####[place] [address]#### TRANSF ####[place] [phone] Eosinophils 0.34 10*3/uL Normal <0.46 [facility] Comment on above: Performed By: #### P T, PTT, AMYL, CMP, LIPA, PHOS ####[place] [address]#### TRANSF ####[place] [address] [address] [place] [phone] Eosinophils/100 leukocytes 4.5 % Normal [facility] Comment on above: Performed By: #### P T, PTT, AMYL, CMP, LIPA, PHOS ####[place] [address]#### TRANSF ####[place] [address] [address]CJ[address] [place] [phone] Erythrocyte distribution width Auto Ratio (RBC) 16.2 % High 11.5-15.0 [facility] Comment on above: Performed By: #### P T, PTT, AMYL, CMP, LIPA, PHOS ####[place] [address]#### TRANSF ####[place] [address] [address]CJenn[address] [place] [phone] Erythrocytes (RBC) 10*6/uL Normal <0.01 [facility] Comment on above: Performed By: #### P T, PTT, AMYL, CMP, LIPA, PHOS ####[place] [address]#### TRANSF ####[place] [address] [address] [place] [phone] Erythrocytes (RBC) 3.62 10*6/uL Low 4.20-6.00 [facility] Comment on above: Performed By: #### P T, PTT, AMYL, CMP, LIPA, PHOS ####[place] [address]#### TRANSF ####[place] [address] [address] [place] [phone] Erythrocytes (RBC) 0.0 /100 WBC Normal 0 [facility] Comment on above: Performed By: #### P T, PTT, AMYL, CMP, LIPA, PHOS ####[place] [address]#### TRANSF ####[place] [address] Hematocrit (HCT) 29.1 % Low 39.0-51.0 [facility] Comment on above: Performed By: #### P T, PTT, AMYL, CMP, LIPA, PHOS ####[place] [address]#### TRANSF ####[place] [address]65734[address] Hemoglobin mass conc (Bld) 8.6 g/dL Low 13.0-17.0 [facility] Comment on above: Performed By: #### P T, PTT, AMYL, CMP, LIPA, PHOS ####[place] [address]#### TRANSF ####[place] [phone] Lymphocytes 2.62 10*3/uL Normal 1.00-4.00 [facility] Comment on above: Performed By: #### P T, PTT, AMYL, CMP, LIPA, PHOS ####[place] [address]#### TRANSF ####[place] [address]657[address] Lymphocytes/100 leukocytes 35.0 % Normal [facility] Comment on above: Performed By: #### P T, PTT, AMYL, CMP, LIPA, PHOS ####[place] [address]#### TRANSF ####[place] [phone] MCH 23.8 pG Low 26.0-34.0 [facility] Comment on above: Performed By: #### P T, PTT, AMYL, CMP, LIPA, PHOS ####[place] [address]#### TRANSF ####[place] [phone] MCHC mass conc (RBC) 29.6 g/dL Low 30.5-36.0 [facility] Comment on above: Performed By: #### P T, PTT, AMYL, CMP, LIPA, PHOS ####[place] [address]#### TRANSF ####[place] [phone] MCV 80.4 fL Normal 80.0-100.0 [facility] Comment on above: Performed By: #### P T, PTT, AMYL, CMP, LIPA, PHOS ####[place] [address]#### TRANSF ####[place] [address]657[address] Monocytes/100 leukocytes 7.6 % Normal [facility] Comment on above: Performed By: #### P T, PTT, AMYL, CMP, LIPA, PHOS ####[place] [address]#### TRANSF ####[place] [address]657[address] Neutrophils/100 WBC Auto (Bld) 52.6 % Normal [facility] Comment on above: Performed By: #### P T, PTT, AMYL, CMP, LIPA, PHOS ####[address]#### TRANSF ####[address], [place] [phone] Platelet mean volume (PMV) 10.9 fL Normal 9.0-12.7 [facility] Comment on above: Performed By: #### P T, PTT, AMYL, CMP, LIPA, PHOS ####[place] 291826[address]71[address]#### TRANSF ####[place] [phone] Platelets 354 10*3/uL Normal 150-400 [facility] Comment on above: Performed By: #### P T, PTT, AMYL, CMP, LIPA, PHOS ####[place] 291826-7110#### TRANSF ####[place] [phone] WBC (Leukocytes) 7.49 10*3/uL Normal 3.70-11.00 [facility] Comment on above: Performed By: #### P T, PTT, AMYL, CMP, LIPA, PHOS ####[address]#### TRANSF ####[address] [phone] CEAon 09-24-2017 CEA 0.7 ng/mL Normal 0.0-2.9 [facility] Comment on above: Result Comment: Test analyzed by the To DxI method. Performed By: #### P T, PTT, AMYL, CMP, LIPA, PHOS ####[place] [phone]#### TRANSF ####[place] [phone] CT PANCREAS/PELVIS W IVCONon 09-24-2017 CT PANCREAS/PELVIS [...] JUAREZ MD on Sep 25 2017 9:02AM [id number] Normal [facility] Comp Metabolic Panelon 09-24 Alanine aminotransferase (ALT) 38 U/L Normal 5-50 [facility] Comment on above: Performed By: #### P T, PTT, AMYL, CMP, LIPA, PHOS ####[place] [address]#### TRANSF ####[place] [phone] Albumin 3.7 g/dL Normal 3.5-5.0 [facility] Comment on above: Performed By: #### P T, PTT, AMYL, CMP, LIPA, PHOS ####[place] [address]#### TRANSF ####[place] [address] Alkaline phosphatase (ALP) 160 U/L High 40-150 [facility] Comment on above: Performed By: #### P T, PTT, AMYL, CMP, LIPA, PHOS ####[place] [address]#### TRANSF ####[place] [phone] Anion gap 12 mmol/L Normal 9-18 [facility] Comment on above: Performed By: #### P T, PTT, AMYL, CMP, LIPA, PHOS ####[place] [address]#### TRANSF ####[place] 465734[address] Aspartate aminotransferase (AST) 37 U/L Normal 7-40 [facility] Comment on above: Performed By: #### P T, PTT, AMYL, CMP, LIPA, PHOS ####[place] [address]#### TRANSF ####[place] [address]65734[address] Bilirubin (total) 0.3 mg/dL Normal 0.0-1.5 [facility] [place] Comment on above: Performed By: #### P T, PTT, AMYL, CMP, LIPA, PHOS ####[place] [address]#### TRANSF ####[place] 465734[address] Calcium 9.7 mg/dL Normal 8.5-10.5 [facility] Comment on above: Performed By: #### P T, PTT, AMYL, CMP, LIPA, PHOS ####[place] [address]#### TRANSF ####[place] [address]65734[address] Chloride 98 mmol/L Normal 98-110 [facility] Comment on above: Performed By: #### P T, PTT, AMYL, CMP, LIPA, PHOS ####[place] [address]#### TRANSF ####[place] [phone] CO2 28 mmol/L Normal 23-32 [facility] Comment on above: Performed By: #### P T, PTT, AMYL, CMP, LIPA, PHOS ####[place] [address]#### TRANSF ####[address] AvReginald V[place] [phone] Creatinine 0.68 mg/dL Low 0.70-1.40 [facility] Comment on above: Performed By: #### P T, PTT, AMYL, CMP, LIPA, PHOS ####[address]#### TRANSF ####[place] [phone] eGFR (non-black) mL/min/{1.73_m2} Normal >60 [facility] Comment on above: Performed By: #### P T, PTT, AMYL, CMP, LIPA, PHOS ####[address]#### TRANSF ####[place] [phone] Glucose mass conc 110 mg/dL High 65-100 [facility] [place] Comment on above: Performed By: #### P T, PTT, AMYL, CMP, LIPA, PHOS ####[place] [address]#### TRANSF ####[place] [phone] Potassium molar conc 4.7 mmol/L Normal 3.5-5.0 [facility] Comment on above: Performed By: #### P T, PTT, AMYL, CMP, LIPA, PHOS ####[place] [address]#### TRANSF ####[place] [phone] Protein 7.8 g/dL Normal 6.0-8.4 [facility] Comment on above: Performed By: #### P T, PTT, AMYL, CMP, LIPA, PHOS ####[place] [address]#### TRANSF ####[place] [phone] Sodium 138 mmol/L Normal 135-146 [facility] Comment on above: Performed By: #### P T, PTT, AMYL, CMP, LIPA, PHOS ####[address] [phone]#### TRANSF ####[place] [address] [place], [place] [phone] Urea nitrogen 13 mg/dL Normal 10-25 [facility] Comment on above: Performed By: #### P T, PTT, AMYL, CMP, LIPA, PHOS ####[address] [phone]#### TRANSF ####[place] [phone] NURSING PROGon 09-24-2017 NURSING PROG HNO ID: [id number] thor: Nayeli Humphries (Rn) MOUSTAPHA Pelletierervice: RadiologyAuthor Type: Registered NurseType: Nursing Progress NoteFiled: 09/24/2017 10:26 AMNote Text: Radiology Service Progress NotePATIENT NAME: Rocio JacksonN: [id number] OF SERVICE: September 24, 2017TIME: 10:25 AMPATIENT WEIGHT: 184 LBSPATIENT IDENTITY VERIFICATION COMPLETED USING TWO (2) METHODS: Patientconfirmed name verbally and Date of .PATIENT GENDER DATA: MaleCONTRAST INDUCED NEPHROPATHY RISK FACTORS: Patient age > 60 years,Diabetic: Yes. Current medication(s): Metformin. Patient currently hasinsulin pump?: No. and Home going recommendation given YesCREATININE:CreatinineDate Value Ref Range Texrcv2709/01/2017 0.54 (L) 0.70 - 1.40 mg/dL Final08/31/2017 0.56 (L) 0.70 - 1.40 mg/dL Final08/30/2017 0.59 (L) 0.70 - 1.40 mg/dL Final eGFR-All Other RacesDate Value Ref Range Dzetdo1809/01/2017 >60 >60 . Final eGFR- AmericanDate Value Ref Range Vxxjbz6309/01/2017 >60 >60 Final P.O.C.T. RESULTS: N/A September 24, 2017TREATMENT: No Hydration needed.ALLERGIES: Reviewed and unchangedCONTRAST ALLERGY: NO.IV SITE: Ambulatory: A peripheral IV was started in the Right forearmwith a diffusic cath: 20 gauge. A Saline lock was inserted per protocol.IV SITE APPEARANCE: Clean,Dry and IntactSIGNED BY: Curt Ferguson 2017 10:25 AM Normal [facility] Protimeon 09-24-2017 INR Coag RelTime (Bld) 1.1 {INR} Normal 0.9-1.3 [facility] Comment on above: Result Comment: Tayler min K Antagonist (VKA) Therapeutic Range: INR 2 to 3 (Target INR of 2.5)Note: For patients treated with VKA drugs, such as warfarin, the [employer] 2012 Guideline recommends [...] of 3).Keegan GH, et al. Chest 2012, 141:7S-47SNishneto RA, et al. [facility] 2017, 70: 252-289 Performed By: #### P T, PTT, AMYL, CMP, LIPA, PHOS ####[place] [id number] [place], [place] [phone]#### TRANSF ####[facility] [place], [place] [phone] PT Sec 11.1 sec Normal 9.7-13.0 [facility] Comment on above: Performed By: #### P T, PTT, AMYL, CMP, LIPA, PHOS ####[address] [phone]#### TRANSF ####[place] [phone] Type and SCR (30D)on 018 ABO/RH(D) Positive Normal [facility] Comment on above: Performed By: #### P T, PTT, AMYL, CMP, LIPA, PHOS ####[address]#### TRANSF ####[place] [phone] Antibody Screen Negative [facility] Comment on above: Performed By: #### P T, PTT, AMYL, CMP, LIPA, PHOS ####[place] [phone]#### TRANSF ####[place] [phone] HOSPon 09-16-2017 HOSP Patient:Jason Jackson RN: Height:5' [...] 29.1 % 09/24/2017 51.0 39.0Progress Notes ([facility] [address]):Michael Jolley MD 09/27/2017 12:29 PM SignedSURGERY PREOPERATIVE VISIT NOTEName: Rocio JacksonMedical Record: [id number] No.: [id number] Frisch is a 62 year old male [...] Date- ANGIOPLASTY HX 05/15/2011 2 stents s/p [place];[facility]- CHOLECYSTECTOMY 08/11/2017 [facility]- PICC LINE INSERT/CONSULT 08/16/2017SOCIAL HISTORY:Social HistorySubstance Use [...] Patient understands risk of medical complicationsincluding pneumonia, DE, UTI and . Patient expressed understanding andconsented to the surgery.The patient had an opportunity to ask additional questions that were answered.The patient expressed that they understood.A consent form was signed today.Prescriptions were explained and provided to the patient.Magalys Alvarez RNPrevious VersionProgress Notes ([facility]):Magalys Alvarez RN 09/23/2017 5:01 PM SignedPatient is scheduled for [place] on 09/30/[address] 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 Nurse unavailable. Awaitingreturn call from nurse.Dr. Irving Rock [address] [phone] fx Magalys Alvarez RN 09/24/2017 1:48 PM SignedReceived return [facility].Patient is pending a stress test on 09/28/2017. Dr. Abreu's office will sendcardiac stratification letter after testing completed.Per Dr. Jolley, patient is to hold Eliquis and Asa (last dose 09/23/2017). Normal [facility] CASE MANAGEMon 09-01-2017 CASE MANAGEM HNO ID: [id number] thor: Alexandrea (Rn) Thom, RNService: Care ManagementAuthor Type: Registered NurseType: Care Mgt Progress NoteFiled: 09/01/2017 11:42 AMNote Text:CARE MANAGEMENT DISCHARGE NOTESERVICE DATE: 09/01/2017SERVICE TIME: 11:02 AM LOS: 19 daysAdmission Date: 08/13/2017DISCHARGE ARRANGEMENT (list agency and phone number)[facility] facilityProvider[facility] XTMXDKYCY ASSESSMENT:Caregiver is ready, willing and able to meet the patient's needs asrecommended by the inter-professional team? YesPatient's transition needs and plan for meeting these needs: SNFDoes the patient have an acute stroke diagnosis, or has the patient had astroke during this admission? NoHANDOFF COMMUNICATION:SNFTRANSPORTAT ION ARRANGEMENTS:Car Sisters will drive pt to the SNFADDITIONAL CONTACT RESOURCES: nonePlan is for dc today to [facility] in [place].The pt and his sisters have verbalized agreement with this plan.SIGNATURE: Alexandrea Tomas RN PATIENT NAME: Rocio VenturaDATE: September 01, 2017 : 11:02 AM PAGER/CONTACT #: [phone] Normal [facility] CBC and Differentialon 09-01 Abs Baso <0.03 Normal <0.11 [facility] Comment on above: Performed By: #### P T, PTT, AMYL, CMP, LIPA, PHOS ####[facility] [place], [place] [phone]#### TRANSF ####[place] [address] [phone] Abs Vance 0.44 k/uL Normal <0.87 [facility] Comment on above: Performed By: #### P T, PTT, AMYL, CMP, LIPA, PHOS ####[place] [address]#### TRANSF ####[place] [address] AvReginald [address] [phone] Abs Neut 2.43 k/uL Normal 1.45-7.50 [facility] Comment on above: Performed By: #### P T, PTT, AMYL, CMP, LIPA, PHOS ####[place] [address]#### TRANSF ####[place] [address] Basophils/100 WBC Auto (Bld) 0.4 % Normal [facility] Comment on above: Performed By: #### P T, PTT, AMYL, CMP, LIPA, PHOS ####[place] [address]#### TRANSF ####[place] [address] DTYPE Auto Diff Normal [facility] Comment on above: Performed By: #### P T, PTT, AMYL, CMP, LIPA, PHOS ####[place] [address]#### TRANSF ####[place] [address] Eosinophils 0.26 10*3/uL Normal <0.46 [facility] Comment on above: Performed By: #### P T, PTT, AMYL, CMP, LIPA, PHOS ####[place] [address]#### TRANSF ####[address]inal[address] Ville [phone] Eosinophils/100 leukocytes 5.3 % Normal [facility] Comment on above: Performed By: #### P T, PTT, AMYL, CMP, LIPA, PHOS ####[place] [address]#### TRANSF ####[place] [phone] Erythrocyte distribution width Auto Ratio (RBC) 15.3 % High 11.5-15.0 [facility] Comment on above: Performed By: #### P T, PTT, AMYL, CMP, LIPA, PHOS ####[place] [address]#### TRANSF ####[place] [phone] Erythrocytes (RBC) 2.93 10*6/uL Low 4.20-6.00 [facility] Comment on above: Performed By: #### P T, PTT, AMYL, CMP, LIPA, PHOS ####[place] [address]#### TRANSF ####[place] [phone] Hematocrit (HCT) 25.0 % Low 39.0-51.0 [facility] Comment on above: Performed By: #### P T, PTT, AMYL, CMP, LIPA, PHOS ####[place] [address]#### TRANSF ####[place] [phone] Hemoglobin mass conc (Bld) 7.9 g/dL Low 13.0-17.0 [facility] Comment on above: Performed By: #### P T, PTT, AMYL, CMP, LIPA, PHOS ####[place] [phone]#### TRANSF ####[place] [phone] Lymphocytes 1.72 10*3/uL Normal 1.00-4.00 [facility] Comment on above: Performed By: #### P T, PTT, AMYL, CMP, LIPA, PHOS ####[place] [address]#### TRANSF ####[place] [phone] Lymphocytes/100 leukocytes 35.3 % Normal [facility] Comment on above: Performed By: #### P T, PTT, AMYL, CMP, LIPA, PHOS ####[place] [address]#### TRANSF ####[place] [phone] MCH 27.0 pG Normal 26.0-34.0 [facility] Comment on above: Performed By: #### P T, PTT, AMYL, CMP, LIPA, PHOS ####[place] [address]#### TRANSF ####[place] [phone] MCHC mass conc (RBC) 31.6 g/dL Normal 30.5-36.0 [facility] Comment on above: Performed By: #### P T, PTT, AMYL, CMP, LIPA, PHOS ####[place] [address]#### TRANSF ####[place] [phone] MCV 85.3 fL Normal 80.0-100.0 [facility] Comment on above: Performed By: #### P T, PTT, AMYL, CMP, LIPA, PHOS ####[place] [address]#### TRANSF ####[place] [phone] Monocytes/100 leukocytes 9.0 % Normal [facility] Comment on above: Performed By: #### P T, PTT, AMYL, CMP, LIPA, PHOS ####[place] [address]#### TRANSF ####[place] [phone] Neutrophils/100 WBC Auto (Bld) 50.0 % Normal [facility] Comment on above: Performed By: #### P T, PTT, AMYL, CMP, LIPA, PHOS ####[place] [address]#### TRANSF ####[place] [phone] Platelet mean volume (PMV) 9.7 fL Normal 9.0-12.7 [facility] Comment on above: Performed By: #### P T, PTT, AMYL, CMP, LIPA, PHOS ####[place] [address]#### TRANSF ####[place] [phone] Platelets 495 10*3/uL High 150-400 [facility] Comment on above: Performed By: #### P T, PTT, AMYL, CMP, LIPA, PHOS ####[place] [address]#### TRANSF ####[place] [phone] WBC (Leukocytes) 4.87 10*3/uL Normal 3.70-11.00 [facility] Comment on above: Performed By: #### P T, PTT, AMYL, CMP, LIPA, PHOS ####[facility] [place], [place] [phone]#### TRANSF ####[facility] [place], [place] [phone] CNDSon 09-01-2017 CNDS HNO ID: [id number] thor: Allegra Garcia) MiglionicoService: ColorectalAuthor Type: Physician AssistantType: Discharge SummariesFiled: 09/02/2017 11:51 AMNote Text:DISCHARGE SUMMARYPATIENT NAME: Rocio Jackson ADMISSION DATE: 08/13/2017MRN: [id number] DISCHARGE DATE: 09/01/2017ATTENDING PHYSICIAN: Michael Cedillo) KrishnainMAURA FOR HOSPITALIZATION: Partial duodenal obstruction due to [...] he was [facility]. Prior to discharge [...] Cardiology, GastroenterologyPATIENT CONDITION AT DISCHARGE: StableDISCHARGE DISPOSITION: Residential FacilityINFORMATION PROVIDED TO PATIENT:Instructions for My Care at Home or Healthcare FacilityThese instructions explain what you or your hiv/aids care nurse need to do tocontinue your care at home or at another healthcare facility? Please go over these instructions with your nurse and hiv/aids care nurse.? If you are not sure about something, [...] Department Center09/15/2017 1:45 PM Michael Cedillo) [facility] FvWestValleyIT IS EXTREMELY IMPORTANT FOR YOU TO [...] applicable):SIGNATURE: Allegra Trevizo PA-C PATIENT NAME: Rocio VizcarraTE: September 02, 2017 : 11:13 AM PAGER/CONTACT #: [phone] [facility] CONSULT PROGon 09-01-2017 CONSULT PROG HNO ID: [id number] thor: Jessee Lottervice: Cardiovascular DiseaseAuthor Type: PhysicianType: Consult Progress NoteFiled: 09/01/2017 10:07 AMNote Text:Cardiology Progress NotePatient Name: Rocio Jackson 's Date: September 01, 2017 Attending: Michael Cedillo) AugustinConsulting Physician: Jessee Mayorga, MDAssessment/Plan: 1. paroxysmal afib In sinusPt going to rehab facility planned surgery in 3 to 4 weeksDiscussed with EP ,no anti arrhythmic drugs ,recommended AC to reducethromboembolic risk.Risk benefits discussed with pt decided on eliquis 5 mg bidWatch for for bleeding issuesadvise f/u with primary title camera operator as out ptAll questions answered.Subjective:Doing well no cp ,sobMonitor sinusVSSObjective: 08/31/182144827BP: 110/65 113/63 104/61 103/67Pulse: 86 84 72 [...] Date- ANGIOPLASTY HX 05/15/2011 2 stents s/p DE;[facility]- CHOLECYSTECTOMY 08/11/2017 [facility]- PICC LINE INSERT/CONSULT 08/16/2017Prior to Admission Medications:No [...] and oriented.Labs:CBC, Coags, BMP, Mg, PhosRecent Labs 08/31/1804WBC 4.87 [...] acting) (HumaLOG) SUBCUTANEOUS w MEALSAND HSphenol 1 [place] (CHLORASEPTIC) 1 [place] MUCOUS MEMBRANE (TOPICAL MOUTH ANDTHROAT) q 2 [...] (DILAUDID) 0.2 mg INTRAVENOUS q 2 H PREliane Mayorga MD CardiologyToday's Date: September 01, 2017Time: 10:00 AM Normal [facility] Comp Metabolic Panelon 09-01 Alanine aminotransferase (ALT) 74 U/L High 5-50 [facility] Comment on above: Performed By: #### P T, PTT, AMYL, CMP, LIPA, PHOS ####[place] [address]#### TRANSF ####[place] [phone] Albumin 2.9 g/dL Low 3.5-5.0 [facility] Comment on above: Performed By: #### P T, PTT, AMYL, CMP, LIPA, PHOS ####[place] [address]#### TRANSF ####[place] [phone] Alkaline phosphatase (ALP) 490 U/L High 40-150 [facility] Comment on above: Performed By: #### P T, PTT, AMYL, CMP, LIPA, PHOS ####[place] [address]#### TRANSF ####[place] [phone] Anion gap 7 mmol/L Low 9-18 [facility] Comment on above: Performed By: #### P T, PTT, AMYL, CMP, LIPA, PHOS ####[place] [address]#### TRANSF ####[place] [phone] Aspartate aminotransferase (AST) 93 U/L High 7-40 [facility] Comment on above: Performed By: #### P T, PTT, AMYL, CMP, LIPA, PHOS ####[place] [address]#### TRANSF ####[place] [phone] Bilirubin (total) 0.4 mg/dL Normal 0.0-1.5 [facility] Comment on above: Performed By: #### P T, PTT, AMYL, CMP, LIPA, PHOS ####[place] [address]#### TRANSF ####[place] [phone] Calcium 8.0 mg/dL Low 8.5-10.5 [facility] Comment on above: Performed By: #### P T, PTT, AMYL, CMP, LIPA, PHOS ####[place] [address]#### TRANSF ####[place] [phone] Chloride 101 mmol/L Normal 98-110 [facility] Comment on above: Performed By: #### P T, PTT, AMYL, CMP, LIPA, PHOS ####[place] [address]#### TRANSF ####[place] [phone] CO2 29 mmol/L Normal 23-32 [facility] Comment on above: Performed By: #### P T, PTT, AMYL, CMP, LIPA, PHOS ####[address]#### TRANSF ####[place] [phone] Creatinine 0.54 mg/dL Low 0.70-1.40 [facility] Comment on above: Performed By: #### P T, PTT, AMYL, CMP, LIPA, PHOS ####[place] [address]#### TRANSF ####[place] [phone] eGFR (non-black) mL/min/{1.73_m2} Normal >60 [facility] Comment on above: Performed By: #### P T, PTT, AMYL, CMP, LIPA, PHOS ####[place] [address]#### TRANSF ####[place] [phone] Glucose mass conc 149 mg/dL High 65-100 [facility] Comment on above: Performed By: #### P T, PTT, AMYL, CMP, LIPA, PHOS ####[place] [address]#### TRANSF ####[place] [phone] Potassium molar conc 4.3 mmol/L Normal 3.5-5.0 [facility] Comment on above: Performed By: #### P T, PTT, AMYL, CMP, LIPA, PHOS ####[address]#### TRANSF ####[place] [address] Protein 6.6 g/dL Normal 6.0-8.4 [facility] Comment on above: Performed By: #### P T, PTT, AMYL, CMP, LIPA, PHOS ####[place] [address]#### TRANSF ####[place] [address] Sodium 137 mmol/L Normal 135-146 [facility] Comment on above: Performed By: #### P T, PTT, AMYL, CMP, LIPA, PHOS ####[place] [address]#### TRANSF ####[place] [address] Urea nitrogen 11 mg/dL Normal 10-25 [facility] Comment on above: Performed By: #### P T, PTT, AMYL, CMP, LIPA, PHOS ####[place] [address]#### TRANSF ####[place] [address] Magnesiumon 09-01-2017 Magnesium 2.3 mg/dL Normal 1.7-2.6 [facility] Comment on above: Performed By: #### P T, PTT, AMYL, CMP, LIPA, PHOS ####[place] [address]#### TRANSF ####[place] [address] NURSING PROGon 09-01-2017 NURSING PROG HNO ID: [id number] thor: Sabrina (Rn) MOUSTAPHA Curtiservice: (none)Author Type: Registered NurseType: Nursing Progress NoteFiled: 09/01/2017 11:54 AMNote Text: Nursing Progress NotePatient Name: Rocio BrianDary: [id number] [address]: [address]/VI-KB8T-00 ____Daily Note:1153- Surgery López fisher in room PK336. Went to flush biliary drainand large amount of output started draining from site. Also does patientneed phosphate prior to d/c? Thanks! -mary ellen #[id number] Awaiting further orders.This note was completed by: Sabrina Curtis RN [facility] PLAN OF CAREon 09-01-2017 PLAN OF CARE HNO ID: [id number] thor: Miriam Britt (Coating Engineer)Service: (none)Author Type: TechnicianType: Plan of CareFiled: 09/02/2017 12:34 PMNote Text:TRANSPORTATION OPERATIONS MANAGER BEDSIDE DELIVERY SURVEY1. Patient to use [facility] Bedside Delivery - N/A2. If fax, patient would like us to fax prescriptions to [facility]. Pharmacy: b. Location: c. Phone:3. Insurance card on file - N/A4. Credit card for payment - N/A [facility] PROGRESSon 09-01-2017 PROGRESS HNO ID: [id number] thor: Kayleen (Res) BenliceService: General SurgeryAuthor Type: ResidentType: Progress NotesFiled: 09/01/2017 7:46 AMNote Text:PROGRESS NOTES - SURGICAL SERVICESPATIENT NAME: Rocio JacksonN: [id number] HISTORY OF PRESENT ILLNESS:Resting well. No acute [...] at 09/01/17 0746Last data filed at 08/31/17 195 Gross per 24 hourIntake 5 mlOutput 1451 [...] PICC line prior to discharge-DC today, with C or to SNFSIGNATURE: Kayleen Gonzales MDDATE: September 01, 2017TIME: 7:46 AM Normal [facility] Phosphoruson 09-01-2017 Phosphate 2.0 mg/dL Low 2.5-4.5 [facility] Comment on above: Performed By: #### P T, PTT, AMYL, CMP, LIPA, PHOS ####[facility] [place], [place] [phone]#### TRANSF ####[facility] [address] [place], [place] [phone] ALLIED HEALTHon 08-31-2017 ALLIED HEALTH HNO ID: [id number] thor: Lauren Peterson (Chaplain)e: Spiritual CareAuthor Type: ChaplainType: Allied HealthFiled: 08/31/2017 11:01 AMNote Text:SPIRITUAL CARE PROGRESS NOTESERVICE DATE: 08/31/2017SERVICE TIME: 10:15 [facility] provided spiritual care visit with patient per request forSpiritual Care consultation. Patient was present in the room with 2family members. I provided active listening and introduction of ourservices as needed.Patient was introduced to the resources offered through Spiritual Care andHealing Services, and informed of the availability of a material checker shouldfurther needs arise. There were no further needs at this time.To contact the Spiritual Care Department: Please call [phone], place aSpiritual Care Consult (or page the material checker on-call at [phone] foremergent needs).SIGNATURE: Chaplain [place] PATIENT NAME: Rociomarisa Sibley: August 31, 2017 : 10:59 AM PAGER/CONTACT #: [phone] [facility] CASE MANAGEMon 08-31-2017 CASE MANAGEM HNO ID: [id number] thor: Alexandrea (Rn) Thom, MOUSTAPHAervice: Care ManagementAuthor Type: Registered NurseType: Care Mgt Progress NoteFiled: 08/31/2017 2:12 PMNote Text:CARE MANAGEMENT PROGRESS NOTESERVICE DATE: 08/31/2017SERVICE TIME: 12:14 PM LOS: 18 daysNeeds Prior to Discharge: To Be DeterminedThis CM met with Pt and his sisters at bedside.Per Pt and his sisters, the plan is for [facility] at or.Medical Clearance is needed.Per discussion with SAIMA Briggs, the plan is for dc tomorrow,SIGNATURE: Alexandrea Tomas RN PATIENT NAME: Rocio Sibley: August 31, 2017 : 12:12 PM PAGER/CONTACT #: [phone] Normal [facility] CBC and Differentialon 08-31 Abs Baso <0.03 Normal <0.11 [facility] Comment on above: Performed By: #### P T, PTT, AMYL, CMP, LIPA, PHOS ####[place] [address]#### TRANSF ####[place] [address] Abs Vance 0.30 k/uL Normal <0.87 [facility] Comment on above: Performed By: #### P T, PTT, AMYL, CMP, LIPA, PHOS ####[place] [address]#### TRANSF ####[place] 4657[address] Abs Neut 2.32 k/uL Normal 1.45-7.50 [facility] Comment on above: Performed By: #### P T, PTT, AMYL, CMP, LIPA, PHOS ####[place] [address]#### TRANSF ####[place] [phone] Basophils/100 WBC Auto (Bld) 0.5 % Normal [facility] Comment on above: Performed By: #### P T, PTT, AMYL, CMP, LIPA, PHOS ####[place] [address]#### TRANSF ####[place] [address]657[address] DTYPE Auto Diff Normal [facility] Comment on above: Performed By: #### P T, PTT, AMYL, CMP, LIPA, PHOS ####[place] [address]#### TRANSF ####[place] [phone] Eosinophils 0.23 10*3/uL Normal <0.46 [facility] Comment on above: Performed By: #### P T, PTT, AMYL, CMP, LIPA, PHOS ####[place] [address]#### TRANSF ####[place] [address]65734[address] Eosinophils/100 leukocytes 5.2 % Normal [facility] Comment on above: Performed By: #### P T, PTT, AMYL, CMP, LIPA, PHOS ####[place] [address]#### TRANSF ####[place] 465734[address] Erythrocyte distribution width Auto Ratio (RBC) 15.2 % High 11.5-15.0 [facility] Comment on above: Performed By: #### P T, PTT, AMYL, CMP, LIPA, PHOS ####[place] [address]#### TRANSF ####[place] [address]65734[address] Erythrocytes (RBC) 2.94 10*6/uL Low 4.20-6.00 [facility] Comment on above: Performed By: #### P T, PTT, AMYL, CMP, LIPA, PHOS ####[place] [address]#### TRANSF ####[place] [address]65734[address] Hematocrit (HCT) 25.1 % Low 39.0-51.0 [facility] Comment on above: Performed By: #### P T, PTT, AMYL, CMP, LIPA, PHOS ####[place] [address]#### TRANSF ####[place] [phone] Hemoglobin mass conc (Bld) 8.0 g/dL Low 13.0-17.0 [facility] Comment on above: Performed By: #### P T, PTT, AMYL, CMP, LIPA, PHOS ####[place] [address]#### TRANSF ####[place] [phone] Lymphocytes 1.56 10*3/uL Normal 1.00-4.00 [facility] Comment on above: Performed By: #### P T, PTT, AMYL, CMP, LIPA, PHOS ####[place] [address]#### TRANSF ####[place] 465734[address] Lymphocytes/100 leukocytes 35.2 % Normal [facility] Comment on above: Performed By: #### P T, PTT, AMYL, CMP, LIPA, PHOS ####[place] [address]#### TRANSF ####[place] 465734[address] MCH 27.2 pG Normal 26.0-34.0 [facility] Comment on above: Performed By: #### P T, PTT, AMYL, CMP, LIPA, PHOS ####[place] [id number]#### TRANSF ####[place] [phone] MCHC mass conc (RBC) 31.9 g/dL Normal 30.5-36.0 [facility] Comment on above: Performed By: #### P T, PTT, AMYL, CMP, LIPA, PHOS ####[place] [address]#### TRANSF ####[place] 465734[address] MCV 85.4 fL Normal 80.0-100.0 [facility] Comment on above: Performed By: #### P T, PTT, AMYL, CMP, LIPA, PHOS ####[place] [address]#### TRANSF ####[place] 465734[address] Monocytes/100 leukocytes 6.8 % Normal [facility] Comment on above: Performed By: #### P T, PTT, AMYL, CMP, LIPA, PHOS ####[place] [address]#### TRANSF ####[place] 465734[address] Neutrophils/100 WBC Auto (Bld) 52.3 % Normal [facility] Comment on above: Performed By: #### P T, PTT, AMYL, CMP, LIPA, PHOS ####[address]#### TRANSF ####[place] [phone] Platelet mean volume (PMV) 9.3 fL Normal 9.0-12.7 [facility] Comment on above: Performed By: #### P T, PTT, AMYL, CMP, LIPA, PHOS ####[place] 291826[address]#### TRANSF ####[place] [phone] Platelets 470 10*3/uL High 150-400 [facility] Comment on above: Performed By: #### P T, PTT, AMYL, CMP, LIPA, PHOS ####[place] 291826[address]71[address]#### TRANSF ####[place] [phone] WBC (Leukocytes) 4.43 10*3/uL Normal 3.70-11.00 [facility] Comment on above: Performed By: #### P T, PTT, AMYL, CMP, LIPA, PHOS ####[place] [address]#### TRANSF ####[place] [phone] Comp Metabolic Panelon 08-31 Alanine aminotransferase (ALT) 55 U/L High 5-50 [facility] Comment on above: Performed By: #### P T, PTT, AMYL, CMP, LIPA, PHOS ####[place] 291826[address]#### TRANSF ####[place] [phone] Albumin 2.8 g/dL Low 3.5-5.0 [facility] Comment on above: Performed By: #### P T, PTT, AMYL, CMP, LIPA, PHOS ####[place] 291826[address]#### TRANSF ####[place] [phone] Alkaline phosphatase (ALP) 475 U/L High 40-150 [facility] Comment on above: Performed By: #### P T, PTT, AMYL, CMP, LIPA, PHOS ####[place] [address]#### TRANSF ####[place] [phone] Anion gap 7 mmol/L Low 9-18 [facility] Comment on above: Performed By: #### P T, PTT, AMYL, CMP, LIPA, PHOS ####[place] [address]#### TRANSF ####[place] [phone] Aspartate aminotransferase (AST) 59 U/L High 7-40 [facility] Comment on above: Performed By: #### P T, PTT, AMYL, CMP, LIPA, PHOS ####[place] [address]#### TRANSF ####[place] 465734[address] Bilirubin (total) 0.4 mg/dL Normal 0.0-1.5 [facility] Comment on above: Performed By: #### P T, PTT, AMYL, CMP, LIPA, PHOS ####[place] [address]#### TRANSF ####[place] [phone] Calcium 7.9 mg/dL Low 8.5-10.5 [facility] Comment on above: Performed By: #### P T, PTT, AMYL, CMP, LIPA, PHOS ####[place] [address]#### TRANSF ####[place] [address]657[address] Chloride 102 mmol/L Normal 98-110 [facility] Comment on above: Performed By: #### P T, PTT, AMYL, CMP, LIPA, PHOS ####[address]#### TRANSF ####[place] [phone] CO2 29 mmol/L Normal 23-32 [facility] Comment on above: Performed By: #### P T, PTT, AMYL, CMP, LIPA, PHOS ####[place] [address]#### TRANSF ####[place] [address]65734[address] Creatinine 0.56 mg/dL Low 0.70-1.40 [facility] Comment on above: Performed By: #### P T, PTT, AMYL, CMP, LIPA, PHOS ####[place] [address]#### TRANSF ####[place] [phone] eGFR (non-black) mL/min/{1.73_m2} Normal >60 [facility] Comment on above: Performed By: #### P T, PTT, AMYL, CMP, LIPA, PHOS ####[address]#### TRANSF ####[place] [phone] Glucose mass conc 165 mg/dL High 65-100 [facility] [place] Comment on above: Performed By: #### P T, PTT, AMYL, CMP, LIPA, PHOS ####[place] [address]#### TRANSF ####[place] [phone] Potassium molar conc 4.4 mmol/L Normal 3.5-5.0 [facility] Comment on above: Performed By: #### P T, PTT, AMYL, CMP, LIPA, PHOS ####[place] [address]#### TRANSF ####[place] [phone] Protein 6.4 g/dL Normal 6.0-8.4 [facility] Comment on above: Performed By: #### P T, PTT, AMYL, CMP, LIPA, PHOS ####[place] [address]#### TRANSF ####[place] [address]657[address] Sodium 138 mmol/L Normal 135-146 [facility] Comment on above: Performed By: #### P T, PTT, AMYL, CMP, LIPA, PHOS ####[place] [address]#### TRANSF ####[place] [address]657[address] Urea nitrogen 10 mg/dL Normal 10-25 [facility] Comment on above: Performed By: #### P T, PTT, AMYL, CMP, LIPA, PHOS ####[place] [address]#### TRANSF ####[place] [phone] Magnesiumon 08-31-2017 Magnesium 2.3 mg/dL Normal 1.7-2.6 [facility] Comment on above: Performed By: #### P T, PTT, AMYL, CMP, LIPA, PHOS ####[place] [address]#### TRANSF ####[place] [phone] PLAN OF CAREon 08-31-2017 PLAN OF CARE HNO ID: [id number] thor: Miriam Britt (Coating Engineer)Service: (none)Author Type: TechnicianType: Plan of CareFiled: 08/31/2017 2:26 PMNote Text:TRANSPORTATION OPERATIONS MANAGER BEDSIDE DELIVERY SURVEY1. Patient to use [facility] Bedside Delivery - N/A2. If fax, patient would like us to fax prescriptions to [facility] a. Pharmacy: b. Location: c. Phone:3. Insurance card on file - N/A4. Credit card for payment - N/A [facility] PLAN OF CARE HNO ID: [id number] thor: Macie Cruz (Pharmacist)Service: PharmacyAuthor Type: PharmacistType: Plan of CareFiled: 08/31/2017 9:28 AMNote Text:DISCHARGE MEDICATION REVIEW BY PHARMACYPatient Name: Rocio Jackson : [id number] Admission Date: 08/13/2017Date of Contact: August 31, 2017 Time of Contact: 9:28 AMMedication list was reviewed by a Pharmacist for drug interactions or drugrelated problems:Queenie Cruz PharmacistMercy Health [facility] 2017 9:28 AMMedication ListSTART taking these medications [...] oxyCODONE IR 5 mg immediate release tablet Normal [facility] PROGRESSon 08-31-2017 PROGRESS HNO ID: [id number] thor: Michael Cedillo) AugustinService: General SurgeryAuthor Type: PhysicianType: Progress NotesFiled: 08/31/2017 7:00 PMNote Text:PROGRESS NOTES - SURGICAL SERVICESPATIENT NAME: Rocio HayesN: [id number] HISTORY OF PRESENT ILLNESS:Resting well. No acute [...] Kayleen Gonzales MDDATE: August 31, 2017TIME: 8:35 DARRELTANNEKA ALEGREI have independently seen and examined the patient today. I haveindependently reviewed all the imaging and the labs. I agree with keycomponents of the resident's note above. Care plan and decision making hasbeen discussed.Doing well, discharge planningToms MD Froilan, MPH, FACSGeneral/Trauma/HPB SurgeryPager: [phone] Cell: [phone] 2017 Normal [facility] Phosphoruson 08-31-2017 Phosphate 2.1 mg/dL Low 2.5-4.5 [facility] Comment on above: Performed By: #### P T, PTT, AMYL, CMP, LIPA, PHOS ####[facility] [place], [place] [phone]#### TRANSF ####[facility] [place], [place] [phone] THERAPY NTon 08-31-2017 THERAPY NT HNO ID: [id number] thor: Adela (Joe) Jhonatane: Physical TherapyAuthor Type: Physical Therapy AssistantType: Therapy (PT/OT/Speech/Resp)Filed: 08/31/2017 3:24 PMNote Text: -Attestation signed by Tonia Schmitz at 08/31/2017 3:44 PMI reviewed and agree with the documentation corresponding to this therapyvisit.SIGNATURE: Tonia Schmitz, PTDATE: August 31, 2017TIME: 3:44 PM Ph ysical Therapy TreatmentSERVICE DATE: 08/31/2017SERVICE TIME: 1350 to 1415ROOM: -RS0V-04 ( OPERATING ROOM)Recommended Discharge Disposition: Subacute/SNFRecommended Discharge [...] on feet;Difficulty walking-musculoskeletalInter ventions Provided: Therapeutic Exercise (63031);Gait Training (88739)Therapeutic Exercise (65793) Treatment Minutes: 101 unitSkilled Intervention(s): Instruction in therapeutic exercise for B LEstrengtheningVerbal and tactile cuing provided for pace and performanceGait Training (73145) Treatment Minutes: 151 unitSkilled Intervention(s): Instruction in [...] RE: Adela Leong PTA PATIENT NAME: Rocio VizcarraTE: August 31, 2017 : 3:22 PM PAGER/CONTACT #: [phone] Normal [facility] Basic Metabolic Panlon 08-30 Anion gap 10 mmol/L Normal 03-16 [facility] Comment on above: Performed By: #### P T, PTT, AMYL, CMP, LIPA, PHOS ####[place] [address] [place], [place] [phone]#### TRANSF ####[facility] [place], [place] [phone] Calcium 8.1 mg/dL Low 8.5-10.5 [facility] Comment on above: Performed By: #### P T, PTT, AMYL, CMP, LIPA, PHOS ####[place] [address]#### TRANSF ####[place] [address] Chloride 102 mmol/L Normal 98-110 [facility] Comment on above: Performed By: #### P T, PTT, AMYL, CMP, LIPA, PHOS ####[place] [address]#### TRANSF ####[place] [phone] CO2 27 mmol/L Normal 23-32 [facility] Comment on above: Performed By: #### P T, PTT, AMYL, CMP, LIPA, PHOS ####[place] [address]#### TRANSF ####[place] [address] Creatinine 0.59 mg/dL Low 0.70-1.40 [facility] Comment on above: Performed By: #### P T, PTT, AMYL, CMP, LIPA, PHOS ####[place] [address]#### TRANSF ####[place] [phone] eGFR (non-black) mL/min/{1.73_m2} Normal >60 [facility] Comment on above: Performed By: #### P T, PTT, AMYL, CMP, LIPA, PHOS ####[place] [address]#### TRANSF ####[place] [address] Glucose mass conc 133 mg/dL High 65-100 [facility] [place] Comment on above: Performed By: #### P T, PTT, AMYL, CMP, LIPA, PHOS ####[place] [address]#### TRANSF ####[place] [phone] Potassium molar conc 4.4 mmol/L Normal 3.5-5.0 [facility] Comment on above: Performed By: #### P T, PTT, AMYL, CMP, LIPA, PHOS ####[place] [address]#### TRANSF ####[place] [phone] Sodium 139 mmol/L Normal 135-146 [facility] Comment on above: Performed By: #### P T, PTT, AMYL, CMP, LIPA, PHOS ####[place] [address]#### TRANSF ####[place] [phone] Urea nitrogen 9 mg/dL Low 10-25 [facility] Comment on above: Performed By: #### P T, PTT, AMYL, CMP, LIPA, PHOS ####[place] [address]#### TRANSF ####[place] [phone] CBC and Differentialon 08-30 Abs Baso <0.03 Normal <0.11 [facility] Comment on above: Performed By: #### P T, PTT, AMYL, CMP, LIPA, PHOS ####[place] [address]#### TRANSF ####[place] [phone] Abs Vance 0.42 k/uL Normal <0.87 [facility] Comment on above: Performed By: #### P T, PTT, AMYL, CMP, LIPA, PHOS ####[place] [address]#### TRANSF ####[place] [phone] Abs Neut 2.87 k/uL Normal 1.45-7.50 [facility] Comment on above: Performed By: #### P T, PTT, AMYL, CMP, LIPA, PHOS ####[place] [address]#### TRANSF ####[place] [address] Basophils/100 WBC Auto (Bld) 0.4 % Normal [facility] Comment on above: Performed By: #### P T, PTT, AMYL, CMP, LIPA, PHOS ####[place] [address]#### TRANSF ####[place] [phone] DTYPE Auto Diff Normal [facility] Comment on above: Performed By: #### P T, PTT, AMYL, CMP, LIPA, PHOS ####[place] [address]#### TRANSF ####[place] [phone] Eosinophils 0.18 10*3/uL Normal <0.46 [facility] Comment on above: Performed By: #### P T, PTT, AMYL, CMP, LIPA, PHOS ####[place] [address]#### TRANSF ####[place] [phone] Eosinophils/100 leukocytes 3.7 % Normal [facility] Comment on above: Performed By: #### P T, PTT, AMYL, CMP, LIPA, PHOS ####[place] [address]#### TRANSF ####[place] [phone] Erythrocyte distribution width Auto Ratio (RBC) 15.4 % High 11.5-15.0 [facility] Comment on above: Performed By: #### P T, PTT, AMYL, CMP, LIPA, PHOS ####[place] [address]#### TRANSF ####[place] [phone] Erythrocytes (RBC) 2.91 10*6/uL Low 4.20-6.00 [facility] Comment on above: Performed By: #### P T, PTT, AMYL, CMP, LIPA, PHOS ####[place] [address]#### TRANSF ####[place] [phone] Hematocrit (HCT) 24.9 % Low 39.0-51.0 [facility] Comment on above: Performed By: #### P T, PTT, AMYL, CMP, LIPA, PHOS ####[place] [address]#### TRANSF ####[place] [phone] Hemoglobin mass conc (Bld) 7.9 g/dL Low 13.0-17.0 [facility] Comment on above: Performed By: #### P T, PTT, AMYL, CMP, LIPA, PHOS ####[place] [address]#### TRANSF ####[place] [phone] Lymphocytes 1.44 10*3/uL Normal 1.00-4.00 [facility] Comment on above: Performed By: #### P T, PTT, AMYL, CMP, LIPA, PHOS ####[place] [address]#### TRANSF ####[place] [phone] Lymphocytes/100 leukocytes 29.2 % Normal [facility] Comment on above: Performed By: #### P T, PTT, AMYL, CMP, LIPA, PHOS ####[place] [address]#### TRANSF ####[place] [phone] MCH 27.1 pG Normal 26.0-34.0 [facility] Comment on above: Performed By: #### P T, PTT, AMYL, CMP, LIPA, PHOS ####[place] [address]#### TRANSF ####[place] [phone] MCHC mass conc (RBC) 31.7 g/dL Normal 30.5-36.0 [facility] Comment on above: Performed By: #### P T, PTT, AMYL, CMP, LIPA, PHOS ####[place] [address]#### TRANSF ####[place] [phone] MCV 85.6 fL Normal 80.0-100.0 [facility] Comment on above: Performed By: #### P T, PTT, AMYL, CMP, LIPA, PHOS ####[place] [address]#### TRANSF ####[place] [phone] Monocytes/100 leukocytes 8.5 % Normal [facility] Comment on above: Performed By: #### P T, PTT, AMYL, CMP, LIPA, PHOS ####[place] [address]#### TRANSF ####[place] [phone] Neutrophils/100 WBC Auto (Bld) 58.2 % Normal [facility] Comment on above: Performed By: #### P T, PTT, AMYL, CMP, LIPA, PHOS ####[place] [address]#### TRANSF ####[place] [phone] Platelet mean volume (PMV) 9.4 fL Normal 9.0-12.7 [facility] Comment on above: Performed By: #### P T, PTT, AMYL, CMP, LIPA, PHOS ####[place] [address]#### TRANSF ####[place] [phone] Platelets 505 10*3/uL High 150-400 [facility] Comment on above: Performed By: #### P T, PTT, AMYL, CMP, LIPA, PHOS ####[place] [address]#### TRANSF ####[place] [phone] WBC (Leukocytes) 4.93 10*3/uL Normal 3.70-11.00 [facility] Comment on above: Performed By: #### P T, PTT, AMYL, CMP, LIPA, PHOS ####[place] [address]#### TRANSF ####[address] AvSamantha Ville [phone] Hepatic Functn Panelon 08-30 Alanine aminotransferase (ALT) 34 U/L Normal 5-50 [facility] Comment on above: Performed By: #### P T, PTT, AMYL, CMP, LIPA, PHOS ####[place] [address]#### TRANSF ####[place] [phone] Albumin 3.0 g/dL Low 3.5-5.0 [facility] Comment on above: Performed By: #### P T, PTT, AMYL, CMP, LIPA, PHOS ####[place] [address]#### TRANSF ####[place] [phone] Alkaline phosphatase (ALP) 480 U/L High 40-150 [facility] Comment on above: Performed By: #### P T, PTT, AMYL, CMP, LIPA, PHOS ####[place] [address]#### TRANSF ####[place] [phone] Aspartate aminotransferase (AST) 41 U/L High 7-40 [facility] Comment on above: Performed By: #### P T, PTT, AMYL, CMP, LIPA, PHOS ####[place] [address]#### TRANSF ####[place] [phone] Bilirubin (total) 0.5 mg/dL Normal 0.0-1.5 [facility] [place] Comment on above: Performed By: #### P T, PTT, AMYL, CMP, LIPA, PHOS ####[place] [address]#### TRANSF ####[place] [phone] Bilirubin,Conjugated <0.2 Normal 0.0-0.4 [facility] Comment on above: Performed By: #### P T, PTT, AMYL, CMP, LIPA, PHOS ####[address]#### TRANSF ####[phone] Protein 6.6 g/dL Normal 6.0-8.4 [facility] Comment on above: Performed By: #### P T, PTT, AMYL, CMP, LIPA, PHOS ####[place] [address]#### TRANSF ####[phone] Magnesiumon 08-30-2017 Magnesium 2.3 mg/dL Normal 1.7-2.6 [facility] Comment on above: Performed By: #### P T, PTT, AMYL, CMP, LIPA, PHOS ####[place] [address]#### TRANSF ####[phone] PROGRESSon 08-30-2017 PROGRESS HNO ID: [id number] thor: Michael Cedillo) AugustinService: General SurgeryAuthor Type: PhysicianType: Progress NotesFiled: 08/30/2017 10:38 AMNote Text: SURGERY INPATIENT PROGRESS NOTESName: Rocio Boudreaux: [id number] and Plan:62 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 Doing well.-Continue fulls with supplements-Capped PTHC, no increased drainage from other drains-Will follow up CMP-No Abx-No Mancilla-VTE Prophylaxis: enoxaparin, SCDs-Routine surgical care: IS, OOB- Will remove PICC line prior to discharge-Anticipate DC early next week, with [facility] or to SNFS: Resting well. No acute [...] acting) (HumaLOG) SUBCUTANEOUS w MEALSAND HSphenol 1 [place] (CHLORASEPTIC) 1 [place] MUCOUS MEMBRANE (TOPICAL MOUTH ANDTHROAT) q 2 [...] kg (192 lb) SpO2 99% BMI 29.19 kg/y7Hejtyp/Output Summary (Last 24 hours) at 08/30/17 0850Last [...] scant clear drainage.Serena Trent, MDPGY -1 General SurgeryMercy Health Kings [facility] 20178:50 AMSTAFF NOTEI have independently seen and examined the patient today. I haveindependently reviewed all the imaging and the labs. I agree with keycomponents of the resident's note above. Care plan and decision making hasbeen discussed.PTC was capped, J-P continues to be serous, patient tolerated PTC cappingwithout any issuesAppropriate by mouth intakeDischarge planningToms MD Froilan, MPH, FACSGeneral/Trauma/HPB SurgeryPager: [phone] Cell: [phone] 2017 Normal [facility] Phosphoruson 08-30-2017 Phosphate 2.8 mg/dL Normal 2.5-4.5 [facility] Comment on above: Performed By: #### P T, PTT, AMYL, CMP, LIPA, PHOS ####[facility] [place], [place] [phone]#### TRANSF ####[facility] [place], [place] [phone] Basic Metabolic Panlon 08-29 Anion gap 10 mmol/L Normal 9-18 [facility] Comment on above: Performed By: #### P T, PTT, AMYL, CMP, LIPA, PHOS ####[place] [address]#### TRANSF ####[place] [address] [place] Av[place]inal[place] [phone] Calcium 8.4 mg/dL Low 8.5-10.5 [facility] Comment on above: Performed By: #### P T, PTT, AMYL, CMP, LIPA, PHOS ####[place] [address]#### TRANSF ####[place] [address] Chloride 103 mmol/L Normal 98-110 [facility] Comment on above: Performed By: #### P T, PTT, AMYL, CMP, LIPA, PHOS ####[place] [address]#### TRANSF ####[place] [address] CO2 26 mmol/L Normal 23-32 [facility] Comment on above: Performed By: #### P T, PTT, AMYL, CMP, LIPA, PHOS ####[place] [address]#### TRANSF ####[place] [address] [place] [address] Creatinine 0.66 mg/dL Low 0.70-1.40 [facility] Comment on above: Performed By: #### P T, PTT, AMYL, CMP, LIPA, PHOS ####[place] [address]#### TRANSF ####[place] [address] [place] [address] eGFR (non-black) mL/min/{1.73_m2} Normal >60 [facility] Comment on above: Performed By: #### P T, PTT, AMYL, CMP, LIPA, PHOS ####[place] [address]1826[address]#### TRANSF ####[place] [address] [place] Av[place]inal[place] [phone] Glucose mass conc 118 mg/dL High 65-100 [facility] [place] Comment on above: Performed By: #### P T, PTT, AMYL, CMP, LIPA, PHOS ####[place] [address]#### TRANSF ####[place] [phone] Potassium molar conc 4.3 mmol/L Normal 3.5-5.0 [facility] Comment on above: Performed By: #### P T, PTT, AMYL, CMP, LIPA, PHOS ####[address]#### TRANSF ####[place] [phone] Sodium 139 mmol/L Normal 135-146 [facility] Comment on above: Performed By: #### P T, PTT, AMYL, CMP, LIPA, PHOS ####[address]#### TRANSF ####[place] [phone] Urea nitrogen 10 mg/dL Normal 10-25 [facility] Comment on above: Performed By: #### P T, PTT, AMYL, CMP, LIPA, PHOS ####[place] [address]#### TRANSF ####[place] [address] [place]inal[place] [phone] CBC and Differentialon 08-29 Abs Baso <0.03 Normal <0.11 [facility] Comment on above: Performed By: #### P T, PTT, AMYL, CMP, LIPA, PHOS ####[place] [address]#### TRANSF ####[place] [address] [place] AvReginal[place] [phone] Abs Vance 0.43 k/uL Normal <0.87 [facility] Comment on above: Performed By: #### P T, PTT, AMYL, CMP, LIPA, PHOS ####[place] [address]#### TRANSF ####[place] [phone] Abs Neut 2.71 k/uL Normal 1.45-7.50 [facility] Comment on above: Performed By: #### P T, PTT, AMYL, CMP, LIPA, PHOS ####[place] [address]#### TRANSF ####[place] [address] Basophils/100 WBC Auto (Bld) 0.4 % Normal [facility] Comment on above: Performed By: #### P T, PTT, AMYL, CMP, LIPA, PHOS ####[place] [address]#### TRANSF ####[place] [address] DTYPE Auto Diff Normal [facility] Comment on above: Performed By: #### P T, PTT, AMYL, CMP, LIPA, PHOS ####[place] [address]#### TRANSF ####[address] AvJames Ville [phone] Eosinophils 0.15 10*3/uL Normal <0.46 [facility] Comment on above: Performed By: #### P T, PTT, AMYL, CMP, LIPA, PHOS ####[place] [address]#### TRANSF ####[place] [address] Eosinophils/100 leukocytes 3.2 % Normal [facility] Comment on above: Performed By: #### P T, PTT, AMYL, CMP, LIPA, PHOS ####[place] [address]#### TRANSF ####[place] [address] Erythrocyte distribution width Auto Ratio (RBC) 15.1 % High 11.5-15.0 [facility] Comment on above: Performed By: #### P T, PTT, AMYL, CMP, LIPA, PHOS ####[place] [address]#### TRANSF ####[place] [address] Erythrocytes (RBC) 2.98 10*6/uL Low 4.20-6.00 [facility] Comment on above: Performed By: #### P T, PTT, AMYL, CMP, LIPA, PHOS ####[place] [address]#### TRANSF ####[place] [address] Hematocrit (HCT) 26.1 % Low 39.0-51.0 [facility] Comment on above: Performed By: #### P T, PTT, AMYL, CMP, LIPA, PHOS ####[place] [address]#### TRANSF ####[place] [address] Hemoglobin mass conc (Bld) 8.1 g/dL Low 13.0-17.0 [facility] Comment on above: Performed By: #### P T, PTT, AMYL, CMP, LIPA, PHOS ####[address]#### TRANSF ####[place] [phone] Lymphocytes 1.44 10*3/uL Normal 1.00-4.00 [facility] Comment on above: Performed By: #### P T, PTT, AMYL, CMP, LIPA, PHOS ####[place] [address]#### TRANSF ####[place] [phone] Lymphocytes/100 leukocytes 30.3 % Normal [facility] Comment on above: Performed By: #### P T, PTT, AMYL, CMP, LIPA, PHOS ####[address]#### TRANSF ####[place] [phone] MCH 27.2 pG Normal 26.0-34.0 [facility] Comment on above: Performed By: #### P T, PTT, AMYL, CMP, LIPA, PHOS ####[address]#### TRANSF ####[place] [phone] MCHC mass conc (RBC) 31.0 g/dL Normal 30.5-36.0 [facility] Comment on above: Performed By: #### P T, PTT, AMYL, CMP, LIPA, PHOS ####[place] [address]#### TRANSF ####[address] AvSamantha [place]ille [phone] MCV 87.6 fL Normal 80.0-100.0 [facility] Comment on above: Performed By: #### P T, PTT, AMYL, CMP, LIPA, PHOS ####[place] [address]#### TRANSF ####[phone] Monocytes/100 leukocytes 9.1 % Normal [facility] Comment on above: Performed By: #### P T, PTT, AMYL, CMP, LIPA, PHOS ####[place] [address]#### TRANSF ####[phone] Neutrophils/100 WBC Auto (Bld) 57.0 % Normal [facility] Comment on above: Performed By: #### P T, PTT, AMYL, CMP, LIPA, PHOS ####[place] [address]#### TRANSF ####[place] [phone] Platelet mean volume (PMV) 9.5 fL Normal 9.0-12.7 [facility] Comment on above: Performed By: #### P T, PTT, AMYL, CMP, LIPA, PHOS ####[address]#### TRANSF ####[place] [phone] Platelets 508 10*3/uL High 150-400 [facility] Comment on above: Performed By: #### P T, PTT, AMYL, CMP, LIPA, PHOS ####[phone]#### TRANSF ####[address] [phone] WBC (Leukocytes) 4.75 10*3/uL Normal 3.70-11.00 [facility] Comment on above: Performed By: #### P T, PTT, AMYL, CMP, LIPA, PHOS ####[address]#### TRANSF ####[address] [phone] Magnesiumon 08-29-2017 Magnesium 2.2 mg/dL Normal 1.7-2.6 [facility] Comment on above: Performed By: #### P T, PTT, AMYL, CMP, LIPA, PHOS ####[place] [address]1826[address]#### TRANSF ####[address] [phone] NURSING PROGon 08-29-2017 NURSING PROG HNO ID: [id number] thor: Saima Kramer (Rn) Debra, MOUSTAPHAervice: (none)Author Type: Registered NurseType: Nursing Progress NoteFiled: 08/29/2017 4:09 PMNote Text: Nursing Progress NotePatient Name: Rocio TorresBryannaN: [id number] Location: [place] [address]/[id number] ____Daily Note:Pt sitting in bed and upon [...] note was completed by: Saima Richardson RN [facility] PROGRESSon 08-29-2017 PROGRESS HNO ID: [id number] thor: Michael Cedillo) AugustinService: General SurgeryAuthor Type: PhysicianType: Progress NotesFiled: 08/29/2017 11:10 AMNote Text: SURGERY INPATIENT PROGRESS NOTESName: Rocio AbigailN: [id number] and Plan:62 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 No acute [...] 5,000 Units SUBCUTANEOUS q 8 Hphenol 1 [place] (CHLORASEPTIC) 1 [place] MUCOUS MEMBRANE (TOPICAL MOUTH ANDTHROAT) q 2 [...] kg (192 lb) SpO2 97% BMI 29.19 kg/n0Jxjdvu/Output Summary (Last 24 hours) at 08/29/17 0737Last data filed at 08/29/17 0708 Gross per 24 hourIntake 2206 mlOutput 5475 mlNet -3269 mlGeneral Appearance: NADAbdomen: soft, non-tender, no distention. PTHC with bilious drainage, IRdrain with scant clear drainage.Akbar Lassiter MDGENEUPPER [facility] SURGERY PGY-47:37 AM/08/2017*A review of daily goals, interventions, and plan [...] cap PTC.Michael Jolley MD, MPH, FACSGeneral/Trauma/HPB SurgeryPager: [phone] Cell: [phone] 2017 Normal [facility] Phosphoruson 08-29-2017 Phosphate 2.6 mg/dL Normal 2.5-4.5 [facility] Comment on above: Performed By: #### P T, PTT, AMYL, CMP, LIPA, PHOS ####[place] [id number]#### TRANSF ####[place] [address] Basic Metabolic Panlon 08-28 Anion gap 10 mmol/L Normal 9-18 [facility] Comment on above: Performed By: #### P T, PTT, AMYL, CMP, LIPA, PHOS ####[place] [id number]#### TRANSF ####[place] [address] Calcium 8.8 mg/dL Normal 8.5-10.5 [facility] Comment on above: Performed By: #### P T, PTT, AMYL, CMP, LIPA, PHOS ####[place] [address]#### TRANSF ####[place] [address] Chloride 102 mmol/L Normal 98-110 [facility] Comment on above: Performed By: #### P T, PTT, AMYL, CMP, LIPA, PHOS ####[place] [address]#### TRANSF ####[place] [address] CO2 26 mmol/L Normal 23-32 [facility] Comment on above: Performed By: #### P T, PTT, AMYL, CMP, LIPA, PHOS ####[place] [address]#### TRANSF ####[place] [address] Creatinine 0.71 mg/dL Normal 0.70-1.40 [facility] Comment on above: Performed By: #### P T, PTT, AMYL, CMP, LIPA, PHOS ####[place] [address]#### TRANSF ####[place] [phone] eGFR (non-black) mL/min/{1.73_m2} Normal >60 [facility] Comment on above: Performed By: #### P T, PTT, AMYL, CMP, LIPA, PHOS ####[address]#### TRANSF ####[place] [address] Glucose mass conc 138 mg/dL High 65-100 [facility] [place] Comment on above: Performed By: #### P T, PTT, AMYL, CMP, LIPA, PHOS ####[place] [address]#### TRANSF ####[place] [address] Potassium molar conc 4.5 mmol/L Normal 3.5-5.0 [facility] Comment on above: Performed By: #### P T, PTT, AMYL, CMP, LIPA, PHOS ####[address]#### TRANSF ####[place] [address] Sodium 138 mmol/L Normal 135-146 [facility] Comment on above: Performed By: #### P T, PTT, AMYL, CMP, LIPA, PHOS ####[place] [address]#### TRANSF ####[address] Av[address]inal[address] [place] [phone] Urea nitrogen 9 mg/dL Low 10-25 [facility] Comment on above: Performed By: #### P T, PTT, AMYL, CMP, LIPA, PHOS ####[address]#### TRANSF ####[phone] CASE MANAGEMon 08-28-2017 CASE MANAGEM HNO ID: [id number] thor: Alexandrea (Kevin) Thom, RNService: Care ManagementAuthor Type: Registered NurseType: Care Mgt Progress NoteFiled: 08/28/2017 2:51 PMNote Text:CARE MANAGEMENT PROGRESS NOTESERVICE DATE: 08/28/2017SERVICE TIME: 2:48 PM LOS: 15 daysNeeds Prior to Discharge: To Be Determined Medical Clearance needed.GI Soft Diet.Pt Remains with int and ext bliliary drain.Plan is for SNF vs HHC when medically cleared,per [facility] in [facility] notification is needed (not precert)CM remains available to assist with skilled dc needs.SIGNATURE: Alexandrea Tomas RN PATIENT NAME: Rocio VizcarraTE: August 28, 2017 : 2:47 PM PAGER/CONTACT #: [phone] Normal [facility] CBC and Differentialon 08-28 Abs Baso <0.03 Normal <0.11 [facility] Comment on above: Performed By: #### P T, PTT, AMYL, CMP, LIPA, PHOS ####[address]#### TRANSF ####[place] [phone] Abs Vance 0.43 k/uL Normal <0.87 [facility] Comment on above: Performed By: #### P T, PTT, AMYL, CMP, LIPA, PHOS ####[address]#### TRANSF ####[place] [phone] Abs Neut 3.60 k/uL Normal 1.45-7.50 [facility] Comment on above: Performed By: #### P T, PTT, AMYL, CMP, LIPA, PHOS ####[place] [address]#### TRANSF ####[place] [address] [address] [phone] Basophils/100 WBC Auto (Bld) 0.3 % Normal [facility] Comment on above: Performed By: #### P T, PTT, AMYL, CMP, LIPA, PHOS ####[place] [address]#### TRANSF ####[place] [phone] DTYPE Auto Diff Normal [facility] Comment on above: Performed By: #### P T, PTT, AMYL, CMP, LIPA, PHOS ####[place] [address]#### TRANSF ####[place] [phone] Eosinophils 0.17 10*3/uL Normal <0.46 [facility] Comment on above: Performed By: #### P T, PTT, AMYL, CMP, LIPA, PHOS ####[place] [address]#### TRANSF ####[place] [address] [address]inal[address] [place] [phone] Eosinophils/100 leukocytes 3.0 % Normal [facility] Comment on above: Performed By: #### P T, PTT, AMYL, CMP, LIPA, PHOS ####[place] [address]#### TRANSF ####[place] [address] [address] [phone] Erythrocyte distribution width Auto Ratio (RBC) 15.5 % High 11.5-15.0 [facility] Comment on above: Performed By: #### P T, PTT, AMYL, CMP, LIPA, PHOS ####[place] [address]#### TRANSF ####[place] [phone] Erythrocytes (RBC) 3.08 10*6/uL Low 4.20-6.00 [facility] Comment on above: Performed By: #### P T, PTT, AMYL, CMP, LIPA, PHOS ####[place] [address]#### TRANSF ####[place] [address] Hematocrit (HCT) 26.4 % Low 39.0-51.0 [facility] Comment on above: Performed By: #### P T, PTT, AMYL, CMP, LIPA, PHOS ####[place] [address]#### TRANSF ####[place] [phone] Hemoglobin mass conc (Bld) 8.4 g/dL Low 13.0-17.0 [facility] Comment on above: Performed By: #### P T, PTT, AMYL, CMP, LIPA, PHOS ####[place] [address]#### TRANSF ####[place] [phone] Lymphocytes 1.50 10*3/uL Normal 1.00-4.00 [facility] Comment on above: Performed By: #### P T, PTT, AMYL, CMP, LIPA, PHOS ####[place] [address]#### TRANSF ####[address] Lymphocytes/100 leukocytes 26.2 % Normal [facility] Comment on above: Performed By: #### P T, PTT, AMYL, CMP, LIPA, PHOS ####[place] [address]#### TRANSF ####[place] [phone] MCH 27.3 pG Normal 26.0-34.0 [facility] Comment on above: Performed By: #### P T, PTT, AMYL, CMP, LIPA, PHOS ####[place] [address]#### TRANSF ####[place] [phone] MCHC mass conc (RBC) 31.8 g/dL Normal 30.5-36.0 [facility] Comment on above: Performed By: #### P T, PTT, AMYL, CMP, LIPA, PHOS ####[place] [address]#### TRANSF ####[place] [address] MCV 85.7 fL Normal 80.0-100.0 [facility] Comment on above: Performed By: #### P T, PTT, AMYL, CMP, LIPA, PHOS ####[place] [address]#### TRANSF ####[place] [address] Monocytes/100 leukocytes 7.5 % Normal [facility] Comment on above: Performed By: #### P T, PTT, AMYL, CMP, LIPA, PHOS ####[address]#### TRANSF ####[place] [address] Neutrophils/100 WBC Auto (Bld) 63.0 % Normal [facility] Comment on above: Performed By: #### P T, PTT, AMYL, CMP, LIPA, PHOS ####[place] [address]#### TRANSF ####[address] AvSamantha Ville [phone] Platelet mean volume (PMV) 9.7 fL Normal 9.0-12.7 [facility] Comment on above: Performed By: #### P T, PTT, AMYL, CMP, LIPA, PHOS ####[place] [address]#### TRANSF ####[place] [phone] Platelets 518 10*3/uL High 150-400 [facility] Comment on above: Performed By: #### P T, PTT, AMYL, CMP, LIPA, PHOS ####[address]#### TRANSF ####[place] [phone] WBC (Leukocytes) 5.72 10*3/uL Normal 3.70-11.00 [facility] Comment on above: Performed By: #### P T, PTT, AMYL, CMP, LIPA, PHOS ####[place] [address]#### TRANSF ####[address] AvAmber Ville [phone] Magnesiumon 08-28-2017 Magnesium 2.2 mg/dL Normal 1.7-2.6 [facility] Comment on above: Performed By: #### P T, PTT, AMYL, CMP, LIPA, PHOS ####[place] [address]#### TRANSF ####[facility] [address] [place], [place] [phone] NURSING PROGon 08-28-2017 NURSING PROG HNO ID: [id number] thor: Pramod (Rn) MOUSTAPHA Mckennaervice: (none)Author Type: Registered NurseType: Nursing Progress NoteFiled: 08/28/2017 5:07 PMNote Text: Nursing Progress NotePatient Name: Rocio Boudreaux: [id number] Location: [place] [address]/[id number] ____Daily Note: 08/28/17 0840 (late entry)- Patient [...] note was completed by: Pramod Mckenna RN [facility] PROGRESSon 08-28-2017 PROGRESS HNO ID: [id number] thor: Michael Cedillo) AugustinService: General SurgeryAuthor Type: PhysicianType: Progress NotesFiled: 08/28/2017 11:12 AMNote Text:PROGRESS NOTES - SURGICAL SERVICESPATIENT NAME: Rocio HayesN: [id number] HISTORY OF PRESENT ILLNESS:No acute events overnight. [...] SNF (will touch base with CM)?SIGNATURE: Kayleen Gonzales MDDATE: August 28, 2017TIME: 7:52 EMMIE ALEGREI have independently seen and examined the patient today. I haveindependently reviewed all the imaging and the labs. I agree with keycomponents of the resident's note above. Care plan and decision making hasbeen discussed.Continued High output from PTCJP nonbiliousAdvancing his diet to a low residue dietDC planningToms Froilan MD, MPH, FACSGeneral/Trauma/HPB SurgeryPager: [phone] Cell: [phone] 2017 [facility] PT EDon 08-28-2017 PT ED HNO ID: [id number] thor: Yohana (Diet-T) AdrianService: Nutrition TherapyAuthor Type: Dietetic TechnicianType: Patient EducationFiled: 08/28/2017 1:24 PMNote Text:NUTRITION PATIENT EDUCATIONTOPIC: Survival Skills: DietPATIENT NAME: Rociomarisa JacksonMRN: [id number] DATE: August 28, 2017Diagnosis: ADULT: Duodenal ObstructionREADINESS [...] Type: Routine Care/15 min 2 triston Mackey-tPager: [phone] [phone] PM Normal [facility] Phosphoruson 08-28-2017 Phosphate 3.4 mg/dL Normal 2.5-4.5 [facility] Comment on above: Performed By: #### P T, PTT, AMYL, CMP, LIPA, PHOS ####[facility] [place], [place] [phone]#### TRANSF ####[facility] [address] [place], [place] [phone] THERAPY NTon 08-28-2017 THERAPY NT HNO ID: [id number] thor: Saima Feliciano (Cota)pasService: Occupational TherapyAuthor Type: Occupational Therapy AssistantType: Therapy (PT/OT/Speech/Resp)Filed: 08/28/2017 3:09 PMNote Text: -Attestation signed by Nolvia Reilly at 08/28/2017 3:48 PMI reviewed and agree with the documentation corresponding to this therapyvisit.SIGNATURE: Nolvia Reilly, XUR/LDATE: August 28, 2017TIME: 3:48 PM Oc cupational Therapy TreatmentSERVICE DATE: 08/28/2017SERVICE TIME: 1420 to 1500ROOM: [address] ( OPERATING ROOM)Recommended Discharge Disposition: Subacute/SNFRecommended Discharge Disposition Comments: (Pt hopes to continue therapyin SNF in [place])Anticipated Discharge Needs: Supervision at HomePhysical Assist at Home for:Cleaning;Laundry;Meals;S hopping;Transportation;Ambul ationSupervision at Home due to: Other: See Comment (recent surgery)Recommended Discharge Equipment: Elastic Shoe Laces;Grab Bars-Shower;HandHeld Shower;Long Handled Shoe Horn;Long Handled Sponge;WheeledWalker;Rn Pain Management ;Sock Aide;Shower ChairOT Recommendations to Nursing: OOB [...] PatientTREATMENT INTERVENTIONS:Therapy Diagnosis: Reduced mobility-otherInterventions Provided: Self Custodial Management (00762);TherapeuticActivity (21391)Therapeutic Activity (37570) Treatment Minutes: 101 unitSkilled Intervention(s): Instructed patient in log roll techniqueInstruction in sit to and from stand technique with proper hand placementand body positioning at edge of bed/chairInstruction of safe transport of items from room to room with use of [employer] the ww.Self Custodial Management (09181) Treatment Minutes: 302 unitsSkilled Intervention(s): Provided instruction, cuing and facilitation forlower body dressing .Instructed pt on use of certified first assistant to zee/doff pants, underwear, shoes inorder to [...] 40FUNCTIONAL G CODE:OT 6 Clicks Score: 18 (08/28/171419)Self Care Current Status (G8987): CK (08/28/171419)Self Care Goal Status (G8988): CJ (08/28/171419)Based on clinical assessment and the score on [...] forcomplete details for this therapy evaluation/treatment.SIGNATU RE: TRACY Dumont PATIENT NAME: Rocio JacksonDATE: August 28, 2017 : 3:04 PM PAGER: [phone] [facility] THERAPY NT HNO ID: [id number] thor: Saima [place]) BradenpasService: Occupational TherapyAuthor Type: Occupational Therapy AssistantType: Therapy (PT/OT/Speech/Resp)Filed: 08/28/2017 12:27 PMNote Text: -Attestation signed by Nolvia Reilly at 08/28/2017 1:15 PMI reviewed and agree with the documentation corresponding to this therapyvisit.SIGNATURE: WENDY Cade/LDATE: August 28, 2017TIME: 1:15 PM OC CUPATIONAL THERAPY MISSED VISITSERVICE DATE: 08/28/2017SERVICE TIME: 1148 to 1148ROOM: [place] [address] ( OPERATING ROOM)Attempted Treatment. Patient not seen due to Eating.Will attempt again asschedule permits.SIGNATURE: TRACY Dumont PATIENT NAME: Rocio JacksonDATE: August 28, 2017 : 12:27 PM PAGER/CONTACT #:[phone] [facility] BRIEF OP NOTon 08-27-2017 BRIEF OP NOT HNO ID: [id number] thor: Juan AgueroService: RadiologyAuthor Type: PhysicianType: Brief Op NoteFiled: 08/27/2017 11:09 AMNote Text:OPERATIVE/PROCEDURE REPORTLOG ID: [id number]/Procedure Date: 08/19/2017Incision/Procedure Start Time:Incision Close/Procedure End Time:Surgeon(s)/Proceduralis t(s) and Cofounder(s):Surgeon(s) and Role: * Vanessa Finley Additional StaffProcedure(s):Patient [...] assistance.SIGNATURE: Juan Aguero MD PATIENT NAME: Rocio JacksonDATE: August 27, 2017 : 11:02 AM PAGER/CONTACT #: [phone] Normal [facility] Basic Metabolic Panlon 08-27 Anion gap 9 mmol/L Normal 9-18 [facility] Comment on above: Performed By: #### P T, PTT, AMYL, CMP, LIPA, PHOS ####[address] [phone]#### TRANSF ####[facility] [place], [place] [phone] Calcium 8.5 mg/dL Normal 8.5-10.5 [facility] Comment on above: Performed By: #### P T, PTT, AMYL, CMP, LIPA, PHOS ####[address] [phone]#### TRANSF ####[place] [address] Chloride 102 mmol/L Normal 98-110 [facility] Comment on above: Performed By: #### P T, PTT, AMYL, CMP, LIPA, PHOS ####[place] [address]#### TRANSF ####[place] [address] CO2 27 mmol/L Normal 23-32 [facility] Comment on above: Performed By: #### P T, PTT, AMYL, CMP, LIPA, PHOS ####[place] [address]#### TRANSF ####[place] [address] Creatinine 0.66 mg/dL Low 0.70-1.40 [facility] Comment on above: Performed By: #### P T, PTT, AMYL, CMP, LIPA, PHOS ####[place] [address]#### TRANSF ####[place] [address] eGFR (non-black) mL/min/{1.73_m2} Normal >60 [facility] Comment on above: Performed By: #### P T, PTT, AMYL, CMP, LIPA, PHOS ####[place] [address]#### TRANSF ####[place] [address] Glucose mass conc 105 mg/dL High 65-100 [facility] [place] Comment on above: Performed By: #### P T, PTT, AMYL, CMP, LIPA, PHOS ####[place] [address]#### TRANSF ####[place] [address] Potassium molar conc 4.4 mmol/L Normal 3.5-5.0 [facility] Comment on above: Performed By: #### P T, PTT, AMYL, CMP, LIPA, PHOS ####[place] [address]#### TRANSF ####[place] [address] Sodium 138 mmol/L Normal 135-146 [facility] Comment on above: Performed By: #### P T, PTT, AMYL, CMP, LIPA, PHOS ####[place] [address]#### TRANSF ####[place] [address] Urea nitrogen 11 mg/dL Normal 10-25 [facility] Comment on above: Performed By: #### P T, PTT, AMYL, CMP, LIPA, PHOS ####[place] [address]#### TRANSF ####[place] [address] CASE MANAGEMon 08-27-2017 CASE MANAGEM HNO ID: [id number] thor: Catherine Humphries (Rn) Leeann RNService: Case ManagementAuthor Type: Registered NurseType: Care Mgt Progress NoteFiled: 08/27/2017 4:26 PMNote Text:CARE MANAGEMENT PROGRESS NOTESERVICE DATE: 08/27/2017SERVICE TIME: 4:15 pm LOS: 14 daysMet with patient and sister Briana at bedside. Due to patient's currentclinical status, and the fact that he is single and lives alone, thepatient has elected to pursue placement at [facility] in [facility]. Updates sent to [facility] SN[facility]. CM will continue to followplan of care to assist with discharge planning.SIGNATURE: Catherine Bradshaw RN PATIENT NAME: Rocio Sibley: August 27, 2017 : 4:18 PM PAGER/CONTACT #: [phone] Normal [facility] CBC and Differentialon 08-27 Abs Baso 0.03 k/uL Normal <0.11 [facility] Comment on above: Performed By: #### P T, PTT, AMYL, CMP, LIPA, PHOS ####[place] [address]#### TRANSF ####[place] [address] Abs Vance 0.29 k/uL Normal <0.87 [facility] Comment on above: Performed By: #### P T, PTT, AMYL, CMP, LIPA, PHOS ####[place] [address]#### TRANSF ####[place] [address] Abs Neut 3.08 k/uL Normal 1.45-7.50 [facility] Comment on above: Performed By: #### P T, PTT, AMYL, CMP, LIPA, PHOS ####[place] [address]#### TRANSF ####[place] [address] Basophils/100 WBC Auto (Bld) 0.6 % Normal [facility] Comment on above: Performed By: #### P T, PTT, AMYL, CMP, LIPA, PHOS ####[place] [address]#### TRANSF ####[place] [address] DTYPE Auto Diff Normal [facility] Comment on above: Performed By: #### P T, PTT, AMYL, CMP, LIPA, PHOS ####[place] [address]#### TRANSF ####[place] [phone] Eosinophils 0.19 10*3/uL Normal <0.46 [facility] Comment on above: Performed By: #### P T, PTT, AMYL, CMP, LIPA, PHOS ####[place] [address]#### TRANSF ####[place] [address] Eosinophils/100 leukocytes 3.7 % Normal [facility] Comment on above: Performed By: #### P T, PTT, AMYL, CMP, LIPA, PHOS ####[place] [address]#### TRANSF ####[place] [address] Erythrocyte distribution width Auto Ratio (RBC) 15.6 % High 11.5-15.0 [facility] Comment on above: Performed By: #### P T, PTT, AMYL, CMP, LIPA, PHOS ####[place] [address]#### TRANSF ####[place] [address] Erythrocytes (RBC) 2.90 10*6/uL Low 4.20-6.00 [facility] Comment on above: Performed By: #### P T, PTT, AMYL, CMP, LIPA, PHOS ####[place] [address]#### TRANSF ####[address] AvReginald Ville [address] Hematocrit (HCT) 25.1 % Low 39.0-51.0 [facility] Comment on above: Performed By: #### P T, PTT, AMYL, CMP, LIPA, PHOS ####[place] [address]#### TRANSF ####[phone] Hemoglobin mass conc (Bld) 8.0 g/dL Low 13.0-17.0 [facility] Comment on above: Performed By: #### P T, PTT, AMYL, CMP, LIPA, PHOS ####[place] [address]#### TRANSF ####[place] [phone] Lymphocytes 1.56 10*3/uL Normal 1.00-4.00 [facility] Comment on above: Performed By: #### P T, PTT, AMYL, CMP, LIPA, PHOS ####[place] [address]#### TRANSF ####[place] [address] Lymphocytes/100 leukocytes 30.3 % Normal [facility] Comment on above: Performed By: #### P T, PTT, AMYL, CMP, LIPA, PHOS ####[place] [address]#### TRANSF ####[place] [address]657[address] MCH 27.6 pG Normal 26.0-34.0 [facility] Comment on above: Performed By: #### P T, PTT, AMYL, CMP, LIPA, PHOS ####[place] [address]#### TRANSF ####[place] [phone] MCHC mass conc (RBC) 31.9 g/dL Normal 30.5-36.0 [facility] Comment on above: Performed By: #### P T, PTT, AMYL, CMP, LIPA, PHOS ####[place] [address]#### TRANSF ####[address] AvSamantha [place]ille [phone] MCV 86.6 fL Normal 80.0-100.0 [facility] Comment on above: Performed By: #### P T, PTT, AMYL, CMP, LIPA, PHOS ####[place] [address]#### TRANSF ####[place] [phone] Monocytes/100 leukocytes 5.6 % Normal [facility] Comment on above: Performed By: #### P T, PTT, AMYL, CMP, LIPA, PHOS ####[place] [address]#### TRANSF ####[place] [phone] Neutrophils/100 WBC Auto (Bld) 59.8 % Normal [facility] Comment on above: Performed By: #### P T, PTT, AMYL, CMP, LIPA, PHOS ####[place] [address]#### TRANSF ####[address] AvAmber Ville [phone] Platelet mean volume (PMV) 9.2 fL Normal 9.0-12.7 [facility] Comment on above: Performed By: #### P T, PTT, AMYL, CMP, LIPA, PHOS ####[place] [address]#### TRANSF ####[place] [phone] Platelets 481 10*3/uL High 150-400 [facility] Comment on above: Performed By: #### P T, PTT, AMYL, CMP, LIPA, PHOS ####[place] [address] [place], [place] [phone]#### TRANSF ####[facility] [place], [place] [phone] WBC (Leukocytes) 5.15 10*3/uL Normal 3.70-11.00 [facility] Comment on above: Performed By: #### P T, PTT, AMYL, CMP, LIPA, PHOS ####[place] [address] [place], [place] [phone]#### TRANSF ####[facility] [place], [place] [phone] IR EXCHANGE CATH BILI DRAINo n 08-27-2017 [...] Air Kerma: 2083.0 mGyDose Area Product (DAP): 682230.0 mGy*rr3Kmmabn Time: 14:00 min:secRadiation dose exceed 5 Gy: NoIf radiation dose exceeded 5 Gy, was counseling and instructional brochure provided: N/ATECHNIQUE: The patient was prepped and draped using all elements of maximal sterile barrier technique (cap, mask, sterile gown, sterile gloves, a large sterile sheet, hand hygiene and cutaneous antisepsis)After local anesthesia, the indwelling 10 Turkmen right internal/external drain was removed over a wire and a long sheath was placed. Cholangiogram was performed. Using a KMP catheter and Glidewire, access was obtained into the first part of the duodenum and then into the third part of the duodenum and contrast injection was performed to assess for duodenal stricture. Over an Amplatz wire, a 12 Turkmen right internal/external drain was placed with the [...] of Removed Specimens: noneATTENDING RADIOLOGIST: Juan Aguero M.D.OIL SEPARATOR: NoneThe procedure was performed by the: attending radiologist, without an certified medical technician assistant.The attending radiologist performed the following procedural [...] changed. Please maintain this tube to external bag.Railroad Brake Operator: NII Transcribe Date/Time: Aug 27 2017 2:25PDictated by : JUAN AGUERO MDThisimran examination was interpreted and the report reviewed and electronically signed by: JUAN AGUERO MD on Aug 27 2017 4:27PM EST Normal [facility] Magnesiumon 08-27-2017 Magnesium 2.2 mg/dL Normal 1.7-2.6 [facility] Comment on above: Performed By: #### P T, PTT, AMYL, CMP, LIPA, PHOS ####[facility] [place], [place] [phone]#### TRANSF ####[facility] [address] [place], [place] [phone] PROGRESSon 08-27-2017 PROGRESS HNO ID: [id number] thor: ASHLEY Lesterervice: General SurgeryAuthor Type: ResidentType: Progress NotesFiled: 08/27/2017 8:05 AMNote Text:PROGRESS NOTES - SURGICAL SERVICESPATIENT NAME: Rocio JacksonN: [id number] HISTORY OF PRESENT ILLNESS:No acute events overnight. [...] (billious, 1.3L)CBC, Coags, BMP, Mg, PhosRecent Labs 08/25/18030 605 WBC 6.83 5.66 5.48 --HB 8.3* 8.0* 7.9* [...] SCDs- Resume home meds- Dispo: Home with HHC pending cholangiogramTo be discussed with Carolina Thao MD8:02 AM August 27, 2017PAGER: [phone] [facility] PT EDon 08-27-2017 PT ED HNO ID: [id number] thor: Lee Ann (Rn) MOUSTAPHA Drakeervice: RadiologyAuthor Type: Registered NurseType: Patient EducationFiled: 08/27/2017 10:43 AMNote Text:PATIENT EDUCATION TOPIC: PROCEDURE / SURGERY: Procedure/Surgery:cholangiog shanon and biliary tube exchange 12frPATIENT NAME: Rocio JacksonMRN: [id number] LOCATION: [place] [address]/[id number] S TO LEARNCOGNITIVE ABILITY: Alert and orientedMOTIVATION [...] NoneElectronically Signed By: Lee Ann Drake RN [facility] Phosphoruson 08-27-2017 Phosphate 4.0 mg/dL Normal 2.5-4.5 [facility] Comment on above: Performed By: #### P T, PTT, AMYL, CMP, LIPA, PHOS ####[facility] [place] [phone]#### TRANSF ####[facility] [place] [phone] THERAPY NTon 08-27-2017 THERAPY NT HNO ID: [id number] thor: Mandi Bowmanervice: Occupational TherapyAuthor Type: Occupational TherapistType: Therapy (PT/OT/Speech/Resp)Filed: 08/27/2017 3:16 PMNote Text:OCCUPATIONAL THERAPY MISSED VISITSERVICE DATE: 08/27/2017SERVICE TIME: 1500 to 1500ROOM: [place] [address] ( OPERATING ROOM)Attempted Treatment. Patient not seen due to Other: See Comment(Cholangiogram Today).SIGNATURE: WENDY Arceo/Timo PATIENT NAME: Rocio JacksonDATE: August 27, 2017 : 3:16 PM PAGER/CONTACT #:[phone] [facility] THERAPY NT HNO ID: [id number] thor: Adela Holcomb) DangService: Physical TherapyAuthor Type: Physical Therapy AssistantType: Therapy (PT/OT/Speech/Resp)Filed: 08/27/2017 11:44 AMNote Text: -Attestation signed by Gonzales (Pt) Nola at 08/27/2017 11:44 AMI reviewed and agree with the assessment as documented above.SIGNATURE: Gonzales Vaca, PTDATE: August 27, 2017TIME: 11:44 AM PH YSICAL THERAPY MISSED VISITSERVICE DATE: 08/27/2017SERVICE TIME: 1110 to 1110ROOM: [place] [address] ( OPERATING ROOM)Attempted Treatment. Patient not seen due to Test/Procedure ( pt havingcholangiogram this a.m.).SIGNATURE: Adela Leong AUTOMATIC SERGING MACHINE OPERATOR PATIENT NAME: Rocio VizcarraTE: August 27, 2017 : 11:44 AM PAGER/CONTACT #: [phone] Normal [facility] Basic Metabolic Panlon 08-26 Anion gap 11 mmol/L Normal 9-18 [facility] Comment on above: Performed By: #### P T, PTT, AMYL, CMP, LIPA, PHOS ####[facility] [place], [place] [phone]#### TRANSF ####[facility] [place], [place] [phone] Calcium 8.7 mg/dL Normal 8.5-10.5 [facility] Comment on above: Performed By: #### P T, PTT, AMYL, CMP, LIPA, PHOS ####[place] [address]#### TRANSF ####[place] [phone] Chloride 101 mmol/L Normal 98-110 [facility] Comment on above: Performed By: #### P T, PTT, AMYL, CMP, LIPA, PHOS ####[place] [address]#### TRANSF ####[place] [phone] CO2 26 mmol/L Normal 23-32 [facility] Comment on above: Performed By: #### P T, PTT, AMYL, CMP, LIPA, PHOS ####[place] [address]#### TRANSF ####[place] [address] Creatinine 0.58 mg/dL Low 0.70-1.40 [facility] Comment on above: Performed By: #### P T, PTT, AMYL, CMP, LIPA, PHOS ####[place] [address]#### TRANSF ####[place] [address] eGFR (non-black) mL/min/{1.73_m2} Normal >60 [facility] Comment on above: Performed By: #### P T, PTT, AMYL, CMP, LIPA, PHOS ####[place] [address]#### TRANSF ####[place] [phone] Glucose mass conc 124 mg/dL High 65-100 [facility] [place] Comment on above: Performed By: #### P T, PTT, AMYL, CMP, LIPA, PHOS ####[place] [address]#### TRANSF ####[place] [address] Potassium molar conc 4.5 mmol/L Normal 3.5-5.0 [facility] Comment on above: Performed By: #### P T, PTT, AMYL, CMP, LIPA, PHOS ####[place] [address]#### TRANSF ####[place] [address]657[address] Sodium 138 mmol/L Normal 135-146 [facility] Comment on above: Performed By: #### P T, PTT, AMYL, CMP, LIPA, PHOS ####[place] [address]#### TRANSF ####[place] [phone] Urea nitrogen 11 mg/dL Normal 10-25 [facility] Comment on above: Performed By: #### P T, PTT, AMYL, CMP, LIPA, PHOS ####[place] [address]#### TRANSF ####[place] [phone] CBC and Differentialon 08-26 Abs Baso <0.03 Normal <0.11 [facility] Comment on above: Performed By: #### P T, PTT, AMYL, CMP, LIPA, PHOS ####[place] [address]#### TRANSF ####[place] [address] Abs Vance 0.57 k/uL Normal <0.87 [facility] Comment on above: Performed By: #### P T, PTT, AMYL, CMP, LIPA, PHOS ####[place] [address]#### TRANSF ####[place] [address]657[address] Abs Neut 4.61 k/uL Normal 1.45-7.50 [facility] Comment on above: Performed By: #### P T, PTT, AMYL, CMP, LIPA, PHOS ####[place] [address]#### TRANSF ####[place] [address]65734[address] Basophils/100 WBC Auto (Bld) 0.1 % [facility] Comment on above: Performed By: #### P T, PTT, AMYL, CMP, LIPA, PHOS ####[place] [address]#### TRANSF ####[place] [phone] DTYPE Auto Diff [facility] Comment on above: Performed By: #### P T, PTT, AMYL, CMP, LIPA, PHOS ####[place] [address]#### TRANSF ####[place] [phone] Eosinophils 0.20 10*3/uL Normal <0.46 [facility] Comment on above: Performed By: #### P T, PTT, AMYL, CMP, LIPA, PHOS ####[place] [address]#### TRANSF ####[place] [address] Eosinophils/100 leukocytes 2.9 % Normal [facility] Comment on above: Performed By: #### P T, PTT, AMYL, CMP, LIPA, PHOS ####[place] [address]#### TRANSF ####[place] [phone] Erythrocyte distribution width Auto Ratio (RBC) 16.0 % High 11.5-15.0 [facility] Comment on above: Performed By: #### P T, PTT, AMYL, CMP, LIPA, PHOS ####[place] [address]#### TRANSF ####[place] [address] Erythrocytes (RBC) 3.00 10*6/uL Low 4.20-6.00 [facility] Comment on above: Performed By: #### P T, PTT, AMYL, CMP, LIPA, PHOS ####[place] [address]#### TRANSF ####[place] [address] Hematocrit (HCT) 26.0 % Low 39.0-51.0 [facility] Comment on above: Performed By: #### P T, PTT, AMYL, CMP, LIPA, PHOS ####[place] [address]#### TRANSF ####[place] [address] Hemoglobin mass conc (Bld) 8.3 g/dL Low 13.0-17.0 [facility] Comment on above: Performed By: #### P T, PTT, AMYL, CMP, LIPA, PHOS ####[place] [address]#### TRANSF ####[place] [phone] Lymphocytes 1.44 10*3/uL Normal 1.00-4.00 [facility] Comment on above: Performed By: #### P T, PTT, AMYL, CMP, LIPA, PHOS ####[place] [address]#### TRANSF ####[place] [address] Lymphocytes/100 leukocytes 21.1 % Normal [facility] Comment on above: Performed By: #### P T, PTT, AMYL, CMP, LIPA, PHOS ####[place] [address]#### TRANSF ####[place] [address] MCH 27.7 pG Normal 26.0-34.0 [facility] Comment on above: Performed By: #### P T, PTT, AMYL, CMP, LIPA, PHOS ####[place] [address]#### TRANSF ####[place] [phone] MCHC mass conc (RBC) 31.9 g/dL Normal 30.5-36.0 [facility] Comment on above: Performed By: #### P T, PTT, AMYL, CMP, LIPA, PHOS ####[place] [address]#### TRANSF ####[place] [phone] MCV 86.7 fL Normal 80.0-100.0 [facility] Comment on above: Performed By: #### P T, PTT, AMYL, CMP, LIPA, PHOS ####[place] [address]#### TRANSF ####[place] [address] Monocytes/100 leukocytes 8.3 % Normal [facility] Comment on above: Performed By: #### P T, PTT, AMYL, CMP, LIPA, PHOS ####[place] [address]#### TRANSF ####[place] [phone] Neutrophils/100 WBC Auto (Bld) 67.6 % Normal [facility] Comment on above: Performed By: #### P T, PTT, AMYL, CMP, LIPA, PHOS ####[place] [address]#### TRANSF ####[place] [phone] Platelet mean volume (PMV) 9.5 fL Normal 9.0-12.7 [facility] Comment on above: Performed By: #### P T, PTT, AMYL, CMP, LIPA, PHOS ####[place] [address]#### TRANSF ####[place] [phone] Platelets 481 10*3/uL High 150-400 [facility] Comment on above: Performed By: #### P T, PTT, AMYL, CMP, LIPA, PHOS ####[place] [address]#### TRANSF ####[place] [phone] WBC (Leukocytes) 6.83 10*3/uL Normal 3.70-11.00 [facility] Comment on above: Performed By: #### P T, PTT, AMYL, CMP, LIPA, PHOS ####[place] [address]1826[address]#### TRANSF ####[place] [phone] Magnesiumon 08-26-2017 Magnesium 2.3 mg/dL Normal 1.7-2.6 [facility] Comment on above: Performed By: #### P T, PTT, AMYL, CMP, LIPA, PHOS ####[facility] [place], [place] [phone]#### TRANSF ####[facility] [address] [place], [place] [phone] NURSING PROGon 08-26-2017 NURSING PROG HNO ID: [id number] thor: Saima Kramer (Rn) Debra, RNService: (none)Author Type: Registered NurseType: Nursing Progress NoteFiled: 08/26/2017 7:20 PMNote Text: Nursing Progress NotePatient Name: Rocio JacksonN: [id number] Location: [place] [address]/[id number] ____Daily Note:IR called and stated that they will not be able to do procedureon pt this evening. Text page to gen surg to make aware.1900: Spoke w/ SROC - full liquid diet ordered and NPO after midnight.This note was completed by: Saima Richardson RN Normal [facility] PROGRESSon 08-26-2017 PROGRESS HNO ID: [id number] thor: Michael Cedillo) AugustinService: General SurgeryAuthor Type: PhysicianType: Progress NotesFiled: 08/26/2017 8:48 PMNote Text:PROGRESS NOTES - SURGICAL SERVICESPATIENT NAME: Rocio JacksonPETRONA: [id number] HISTORY OF PRESENT ILLNESS:No acute events overnight. [...] meds- Dispo: SNF when medically readySIGNATURE: Kayleen Gonzales MDDATE: August 26, 2017TIME: 7:46 EMMIE ALEGREI have independently seen and examined the patient today. I haveindependently reviewed all the imaging and the labs. I agree with keycomponents of the resident's note above. Care plan and decision making hasbeen discussed.Doing okayPending tube cholangiogramToms MD Froilan, MPH, FACSGeneral/Trauma/HPB SurgeryPager: [phone] Cell: [phone] 2017 Normal [facility] Phosphoruson 08-26-2017 Phosphate 3.4 mg/dL Normal 2.5-4.5 [facility] Comment on above: Performed By: #### P T, PTT, AMYL, CMP, LIPA, PHOS ####[facility] [place], [place] [phone]#### TRANSF ####[facility] [address] [place], [place] [phone] ALLIED HEALTHon 08-25-2017 ALLIED HEALTH HNO ID: [id number] thor: Angelita Rosas (Chaplain)Ser: Spiritual CareAuthor Type: ChaplainType: Allied HealthFiled: 08/25/2017 10:39 AMNote Text:SPIRITUAL CARE PROGRESS NOTESERVICE DATE: 08/25/2017SERVICE TIME: 10:40amSaw pt on PK3C per Spiritual Care referral. Pt's scientology is listed as None in his EMR. [...] contact the Spiritual Care Department: Please call [phone].SIGNATURE: Chaplain Tasia PATIENT NAME: Rocio JacksonDATE: August 25, 2017 : 10:38 AM PAGER/CONTACT #: [phone] Normal [facility] Basic Metabolic Panlon 08-25 Anion gap 11 mmol/L Normal 9-18 [facility] Comment on above: Performed By: #### P T, PTT, AMYL, CMP, LIPA, PHOS ####[place] [address]#### TRANSF ####[place] [address] Calcium 8.4 mg/dL Low 8.5-10.5 [facility] Comment on above: Performed By: #### P T, PTT, AMYL, CMP, LIPA, PHOS ####[place] [address]#### TRANSF ####[place] [address] Chloride 101 mmol/L Normal 98-110 [facility] Comment on above: Performed By: #### P T, PTT, AMYL, CMP, LIPA, PHOS ####[place] [address]#### TRANSF ####[place] [address] CO2 26 mmol/L Normal 23-32 [facility] Comment on above: Performed By: #### P T, PTT, AMYL, CMP, LIPA, PHOS ####[place] [address]#### TRANSF ####[place] [address] Creatinine 0.62 mg/dL Low 0.70-1.40 [facility] Comment on above: Performed By: #### P T, PTT, AMYL, CMP, LIPA, PHOS ####[place] [address]#### TRANSF ####[place] [phone] eGFR (non-black) mL/min/{1.73_m2} Normal >60 [facility] Comment on above: Performed By: #### P T, PTT, AMYL, CMP, LIPA, PHOS ####[place] [address]18[address]#### TRANSF ####[place] [phone] Glucose mass conc 118 mg/dL High 65-100 [facility] [place] Comment on above: Performed By: #### P T, PTT, AMYL, CMP, LIPA, PHOS ####[place] [address]#### TRANSF ####[place] [phone] Potassium molar conc 4.5 mmol/L Normal 3.5-5.0 [facility] Comment on above: Performed By: #### P T, PTT, AMYL, CMP, LIPA, PHOS ####[place] [address]#### TRANSF ####[place] [phone] Sodium 138 mmol/L Normal 135-146 [facility] Comment on above: Performed By: #### P T, PTT, AMYL, CMP, LIPA, PHOS ####[place] [address]#### TRANSF ####[place] [phone] Urea nitrogen 10 mg/dL Normal 10-25 [facility] Comment on above: Performed By: #### P T, PTT, AMYL, CMP, LIPA, PHOS ####[address]#### TRANSF ####[facility] [place], [place] [phone] CASE MANAGEMon 08-25-2017 CASE MANAGEM HNO ID: [id number] thor: Alexandrea (Kevin) Thom RNService: Care ManagementAuthor Type: Registered NurseType: Care Mgt Progress NoteFiled: 08/25/2017 12:06 PMNote Text:MULTIDISCIPLINARY ROUNDSSERVICE DATE: 08/25/2017 ADMISSION DATE: 08/13/2017SERVICE TIME: 12:03 PM ANTICIPATED D/C DATE: 2-3 daysProblem List:ACTIVE PROBLEM LISTDuodenal ObstructionSevere Protein-Calorie Malnutrition (Hcc)Attendees Present at Rounds:Color Repairer: Chelsea Tailor Apprentice/Cofounder Nurse Tailor Apprentice: Taylorocial Worker: Roderick Nurse: Yohannes Discussed on Rounds:DietDischarge NeedsPlan of CareAnticipated Discharge Disposition:Home with Home Health Care vs SNFper discussion with Gerri Espinoza CNP.plan for Cholangiogram tomorrow.Last Vitals: BP 113/66 Pulse 72 Temp (Src) 98.2 (Oral) Resp 16 Ht5' 8 (1.73m) Wt 192 lb (87.1kg) SpO2 98% BMI 29.20 kg/(m2).Pt is accepted at [facility] in [place].Pt also has been accepted by [facility].Nursing: Fluid/Electrolyte Goal Target Achievement Date: 08/26/17Mobility Goal Target Achievement Date: 08/26/17Pain Goal Target Achievement Date: 08/26/17DOCUMENTED BY: Alexandrea Tomas RN PATIENT NAME: Rocio BrianschDATE: August 25, 2017 : 12:03 PM CSN: [id number] Normal [facility] CBC and Differentialon 08-25 Abs Baso <0.03 Normal <0.11 [facility] Comment on above: Performed By: #### P T, PTT, AMYL, CMP, LIPA, PHOS ####[facility] [place], [place] [phone]#### TRANSF ####[facility] [place], [place] [phone] Abs Vance 0.46 k/uL Normal <0.87 [facility] Comment on above: Performed By: #### P T, PTT, AMYL, CMP, LIPA, PHOS ####[place] [address]#### TRANSF ####[place] [phone] Abs Neut 3.52 k/uL Normal 1.45-7.50 [facility] Comment on above: Performed By: #### P T, PTT, AMYL, CMP, LIPA, PHOS ####[place] [address]#### TRANSF ####[place] [address] [address] [place] [phone] Basophils/100 WBC Auto (Bld) 0.4 % Normal [facility] Comment on above: Performed By: #### P T, PTT, AMYL, CMP, LIPA, PHOS ####[place] [address]#### TRANSF ####[place] [phone] DTYPE Auto Diff Normal [facility] Comment on above: Performed By: #### P T, PTT, AMYL, CMP, LIPA, PHOS ####[place] [address]#### TRANSF ####[place] [address] [address] [place] [phone] Eosinophils 0.21 10*3/uL Normal <0.46 [facility] Comment on above: Performed By: #### P T, PTT, AMYL, CMP, LIPA, PHOS ####[place] [address]#### TRANSF ####[place] [address] Eosinophils/100 leukocytes 3.7 % Normal [facility] Comment on above: Performed By: #### P T, PTT, AMYL, CMP, LIPA, PHOS ####[place] [address]#### TRANSF ####[place] [phone] Erythrocyte distribution width Auto Ratio (RBC) 15.8 % High 11.5-15.0 [facility] Comment on above: Performed By: #### P T, PTT, AMYL, CMP, LIPA, PHOS ####[place] [address]#### TRANSF ####[place] [address] Erythrocytes (RBC) 2.91 10*6/uL Low 4.20-6.00 [facility] Comment on above: Performed By: #### P T, PTT, AMYL, CMP, LIPA, PHOS ####[place] [address]#### TRANSF ####[place] [address] Hematocrit (HCT) 25.6 % Low 39.0-51.0 [facility] Comment on above: Performed By: #### P T, PTT, AMYL, CMP, LIPA, PHOS ####[place] [address]#### TRANSF ####[place] [phone] Hemoglobin mass conc (Bld) 8.0 g/dL Low 13.0-17.0 [facility] Comment on above: Performed By: #### P T, PTT, AMYL, CMP, LIPA, PHOS ####[place] [address]#### TRANSF ####[place] [phone] Lymphocytes 1.45 10*3/uL Normal 1.00-4.00 [facility] Comment on above: Performed By: #### P T, PTT, AMYL, CMP, LIPA, PHOS ####[address]#### TRANSF ####[place] [address] Lymphocytes/100 leukocytes 25.6 % Normal [facility] Comment on above: Performed By: #### P T, PTT, AMYL, CMP, LIPA, PHOS ####[place] [address]#### TRANSF ####[place] [address] MCH 27.5 pG Normal 26.0-34.0 [facility] Comment on above: Performed By: #### P T, PTT, AMYL, CMP, LIPA, PHOS ####[place] [address]#### TRANSF ####[place] [phone] MCHC mass conc (RBC) 31.3 g/dL Normal 30.5-36.0 [facility] Comment on above: Performed By: #### P T, PTT, AMYL, CMP, LIPA, PHOS ####[place] [address]#### TRANSF ####[place] [phone] MCV 88.0 fL Normal 80.0-100.0 [facility] Comment on above: Performed By: #### P T, PTT, AMYL, CMP, LIPA, PHOS ####[address]#### TRANSF ####[place] [address] [address]av[address] [place] [phone] Monocytes/100 leukocytes 8.1 % Normal [facility] Comment on above: Performed By: #### P T, PTT, AMYL, CMP, LIPA, PHOS ####[address]#### TRANSF ####[place] [address] [address]av[address] [place] [phone] Neutrophils/100 WBC Auto (Bld) 62.2 % Normal [facility] Comment on above: Performed By: #### P T, PTT, AMYL, CMP, LIPA, PHOS ####[address]#### TRANSF ####[place] [phone] Platelet mean volume (PMV) 10.1 fL Normal 9.0-12.7 [facility] Comment on above: Performed By: #### P T, PTT, AMYL, CMP, LIPA, PHOS ####[address]#### TRANSF ####[place] [phone] Platelets 444 10*3/uL High 150-400 [facility] Comment on above: Performed By: #### P T, PTT, AMYL, CMP, LIPA, PHOS ####[place] [address]#### TRANSF ####[address]CDav[address] V[address] [phone] WBC (Leukocytes) 5.66 10*3/uL Normal 3.70-11.00 [facility] Comment on above: Performed By: #### P T, PTT, AMYL, CMP, LIPA, PHOS ####[place] [address]1826[address]#### TRANSF ####[facility] [place], [place] [phone] Magnesiumon 08-25-2017 Magnesium 2.3 mg/dL Normal 1.7-2.6 [facility] Comment on above: Performed By: #### P T, PTT, AMYL, CMP, LIPA, PHOS ####[facility] [place], [place] [phone]#### TRANSF ####[facility] [place], [place] [phone] NURSING PROGon 08-25-2017 NURSING PROG HNO ID: [id number] thor: Shavonne (Rn) [place], RNService: NursingAuthor Type: Registered NurseType: Nursing Progress NoteFiled: 08/25/2017 2:30 PMNote Text: Nursing Progress NotePatient Name: Rocio JacksonN: [id number] Location: [place] [address]/[id number] ____Daily Note:Pt A+Ox3, speech clear, flat affect. Skin pale and slightly jaundiced.NSR with occasional PVC's on residential monitor. Abdomen soft, bowel soundspresent, +Flatus and +BM, [...] note was completed by: Shavonne Mays RN Normal [facility] NUTRITIONon 08-25-2017 NUTRITION HNO ID: [id number] thor: Alise (Carlos) BarsaService: Nutrition TherapyAuthor Type: [...] Weight: 87?kgResting Metabolic Rate: 1661Estimated kilocalorie needs: 1968-3187?kilocalories determined by25-30?kcal/kgEstimated protein needs:113 - ?130?grams determined [...] kg (192 lb) SpO2 97% BMI 29.19 kg/o6[facility] 0GLUC 118*BUN 10CREAT 0.62*NA 138K 4.5CHLOR 101CO2 26HB [...] 5,000 Units SUBCUTANEOUS q 8 Hphenol 1 [place] (CHLORASEPTIC) 1 [place] MUCOUS MEMBRANE (TOPICAL MOUTH ANDTHROAT) q 2 [...] 08/23/17 0659 700 - 08/24/17 0659 08/24/17 0700 - 08/25/17 0659 08/25/17 0700 -08/26/17 0659 Intake (ml) -- 1350 1860 375 855 Output (ml) 2219 4414 1429 1930 629 Net (ml) -8704 -385 475 -5275 226Surgical Incision 08/14/17 0103 Abdomen - Laparoscopy Sites (Active)Dressing Status None: Open to Air 08/25/2017 8:57 AMIncision Closures Topical Skin Adhesive 08/25/2017 8:57 AMDrainage Description None 08/25/2017 8:57 AMDrainage Amount None 08/25/2017 8:57 AMEdges Intact 08/25/2017 8:57 AMHematoma No 08/25/2017 8:57 AMNumber of days:11MNT Billing Type: Re-assess/15 min 5 unitsSIGNATURE: Alise Lopez RD, LD PATIENT NAME: Rocio JacksonDATE: August 25, 2017 : 1:22 PM PAGER: For further assistance and weekends please page theGroup Pager -[phone] [facility] PROGRESSon 08-25-2017 PROGRESS HNO ID: [id number] thor: Michael Cedillo) AugustinService: General SurgeryAuthor Type: PhysicianType: Progress NotesFiled: 08/25/2017 11:42 AMNote Text:GENERAL SURGERY INPATIENT PROGRESS NOTENAME: Rocio JacksonMRN: [id number] 2017 7:52 AMASSESSMENT AND PLAN:Rocio Jackson is [...] kg (192 lb) SpO2 97% BMI 29.19 kg/w6Dhofvp: Breathing comfortably on RA, speaking in full sentencesAbdominal examination: Abdomen soft, non-distended, mildly tenderTubes/Drains/Stoma: PTHC drain in place, serosanguineous outputFlatus/Bowel movement: Bowel function +Nausea/Emesis: NegativePain Control: IV dilaudid PO tylenolRenal: UOP adequateAntibiotics: AugmentinPending labs/results: None. Culture grew streptococcus mutansDate 08/23/17 0700 - 08/24/17 0659 08/24/17 07 - 08/25/17 0659Shift 4627-8279 9913-5494 3218-0082 24 Hour Total 2004-2772 8837-88718300-6954 24 Hour TotalINTAKE PO 1080 305 16 8952 PO 600 788 95 8776 Supplements (mL) 480 240 720 Shift Total 1080 720 60 1860OUTPUT Urine 3 101 104 0 0 Void (ml) 100 100 0 0 Urine Incontinence/Not Saved 1 x 1 x Urine Not Saved 3 1 4 Emesis 0 0 Emesis (ml) 0 0 Tubes 625 268 875 9051 300 300 Drain/Tube Output (Drain/Tube 08/15/17 1530 Assessment Right UpperAbdomen) 50 50 0 0 Drain/Tube Output (Drain/Tube 08/19/17 1443 Biliary Right Lateral;LowerQuadrant Abdomen) 625 832 605 5993 300 300 # of BMs Number of BMs 2 x 1 x 1 x 4 x 1 x 1 x Shift Total 625 492 321 9744 300 300Weight (kg) 87.1 87.1 87.1 87.1 [...] Ann Thao MD7:52 AM August 25, 2017PAGER: [phone](After 6pm and weekends please contact Surgery oncall [...] cap Noah Jolley MD, MPH, FACSGeneral/Trauma/HPB SurgeryPager: [phone] Cell: [phone] 2017 Normal [facility] Phosphoruson 08-25-2017 Phosphate 3.0 mg/dL Normal 2.5-4.5 [facility] Comment on above: Performed By: #### P T, PTT, AMYL, CMP, LIPA, PHOS ####[facility] [place] [phone]#### TRANSF ####[facility] [address] [place], [place] [phone] THERAPY NTon 08-25-2017 THERAPY NT HNO ID: [id number] thor: Sujata (Pt) PapcunService: Physical TherapyAuthor Type: Physical TherapistType: Therapy (PT/OT/Speech/Resp)Filed: 08/25/2017 12:18 PMNote Text:Physical Therapy TreatmentSERVICE DATE: 08/25/2017SERVICE TIME: 1143 to 1206RO[facility])Recommended Discharge Disposition: Home PTRecommended [...] internal biliary drain placement;cholangi[facility]. Requires skilled PT for forimprovement of strength [...] Reduced mobility-other;Muscle Weakness (generalized)Interventions Provided: Therapeutic Exercise (84650);Gait Training (80617)Therapeutic Exercise (20296) Treatment Minutes: 121 unitSkilled Intervention(s): Instruction in therapeutic exercise BLE seatedfor strengthening, cues for tempo.Gait Training (93148) Treatment Minutes: 111 unitSkilled Intervention(s): Instruction in [...] documentation flowsheet forcomplete details for this therapy evaluation/treatment.SIGNSHANON RE: Sujata Ohara PT PATIENT NAME: Rocio VenturaDATE: August 25, 2017 : 12:16 PM PAGER/CONTACT #: [phone] [facility] ALLIED HEALTHon 08-24-2017 ALLIED HEALTH HNO ID: [id number] thor: Albert Sutherland: (none)Author Type: (none)Type: Allied HealthFiled: 08/24/2017 6:37 PMNote Text: Radiology Service Progress NotePATIENT NAME: Rocio JacksonMRN: [id number] OF SERVICE: August 24, 2017TIME: 6:37 PMPATIENT IDENTITY VERIFICATION COMPLETED USING TWO (2) METHODS: Patientconfirmed name verbally and ID band matches..PATIENT GENDER DATA: MalePATIENT RELEVANT IMPLANT DATA REVIEWED: Not ApplicableRADIOLOGY DEPARTMENT: CT; Exam(s) Completed: Abdomen/PelvisPERIPHERAL IV DATA: Inpatient: see LDA documentationSIGNED BY: Albert Vaughan 2017 6:37 PM Normal [facility] CASE MANAGEMon 08-24-2017 CASE MANAGEM HNO ID: [id number] thor: Alexandrea (Rn) Thom, RNService: Care ManagementAuthor [...] he feels weeker, he requests SNF in [facility],A list was given to pt.PT OT updates are needed.A Precert is needed.Pt is on Full Liquid dietSIGNATURE: Alexandrea Tomas RN PATIENT NAME: Rocio JacksonDATE: August 24, 2017 : 10:39 AM PAGER/CONTACT #: [phone] Normal [facility] CBC and Differentialon 08-24 Abs Baso <0.03 Normal <0.11 [facility] Comment on above: Performed By: #### P T, PTT, AMYL, CMP, LIPA, PHOS ####[facility] [place], [place] [phone]#### TRANSF ####[facility] [place], [place] [phone] Abs Vance 0.51 k/uL Normal <0.87 [facility] Comment on above: Performed By: #### P T, PTT, AMYL, CMP, LIPA, PHOS ####[place] [address]#### TRANSF ####[address] [place] [phone] Abs Neut 3.42 k/uL Normal 1.45-7.50 [facility] Comment on above: Performed By: #### P T, PTT, AMYL, CMP, LIPA, PHOS ####[place] [address]#### TRANSF ####[place] [address] [place] [phone] Basophils/100 WBC Auto (Bld) 0.4 % [facility] Comment on above: Performed By: #### P T, PTT, AMYL, CMP, LIPA, PHOS ####[place] [address]#### TRANSF ####[place] [phone] DTYPE Auto Diff Normal [facility] Comment on above: Performed By: #### P T, PTT, AMYL, CMP, LIPA, PHOS ####[place] [address]#### TRANSF ####[place] [address] [place] [phone] Eosinophils 0.17 10*3/uL Normal <0.46 [facility] Comment on above: Performed By: #### P T, PTT, AMYL, CMP, LIPA, PHOS ####[place] [address]#### TRANSF ####[place] [address] Eosinophils/100 leukocytes 3.1 % Normal [facility] Comment on above: Performed By: #### P T, PTT, AMYL, CMP, LIPA, PHOS ####[place] [address]#### TRANSF ####[place] [address] Erythrocyte distribution width Auto Ratio (RBC) 16.1 % High 11.5-15.0 [facility] Comment on above: Performed By: #### P T, PTT, AMYL, CMP, LIPA, PHOS ####[place] [address]#### TRANSF ####[place] [address] Erythrocytes (RBC) 2.87 10*6/uL Low 4.20-6.00 [facility] Comment on above: Performed By: #### P T, PTT, AMYL, CMP, LIPA, PHOS ####[place] [address]#### TRANSF ####[place] [address] Hematocrit (HCT) 25.2 % Low 39.0-51.0 [facility] Comment on above: Performed By: #### P T, PTT, AMYL, CMP, LIPA, PHOS ####[place] [address]#### TRANSF ####[place] [address] Hemoglobin mass conc (Bld) 7.9 g/dL Low 13.0-17.0 [facility] Comment on above: Performed By: #### P T, PTT, AMYL, CMP, LIPA, PHOS ####[place] [address]#### TRANSF ####[place] [phone] Lymphocytes 1.36 10*3/uL Normal 1.00-4.00 [facility] Comment on above: Performed By: #### P T, PTT, AMYL, CMP, LIPA, PHOS ####[place] [address]#### TRANSF ####[place] [address] Lymphocytes/100 leukocytes 24.8 % Normal [facility] Comment on above: Performed By: #### P T, PTT, AMYL, CMP, LIPA, PHOS ####[place] [address]#### TRANSF ####[place] [address] MCH 27.5 pG Normal 26.0-34.0 [facility] Comment on above: Performed By: #### P T, PTT, AMYL, CMP, LIPA, PHOS ####[place] [address]#### TRANSF ####[place] [address] MCHC mass conc (RBC) 31.3 g/dL Normal 30.5-36.0 [facility] Comment on above: Performed By: #### P T, PTT, AMYL, CMP, LIPA, PHOS ####[place] [address]#### TRANSF ####[place] [address] MCV 87.8 fL Normal 80.0-100.0 [facility] Comment on above: Performed By: #### P T, PTT, AMYL, CMP, LIPA, PHOS ####[place] [address]#### TRANSF ####[place] [phone] Monocytes/100 leukocytes 9.3 % Normal [facility] Comment on above: Performed By: #### P T, PTT, AMYL, CMP, LIPA, PHOS ####[address]#### TRANSF ####[place] [phone] Neutrophils/100 WBC Auto (Bld) 62.4 % Normal [facility] Comment on above: Performed By: #### P T, PTT, AMYL, CMP, LIPA, PHOS ####[place] [address]#### TRANSF ####[place] [phone] Platelet mean volume (PMV) 9.6 fL Normal 9.0-12.7 [facility] Comment on above: Performed By: #### P T, PTT, AMYL, CMP, LIPA, PHOS ####[place] [address]#### TRANSF ####[place] [phone] Platelets 393 10*3/uL Normal 150-400 [facility] Comment on above: Performed By: #### P T, PTT, AMYL, CMP, LIPA, PHOS ####[place] [address]#### TRANSF ####[place] [phone] WBC (Leukocytes) 5.48 10*3/uL Normal 3.70-11.00 [facility] Comment on above: Performed By: #### P T, PTT, AMYL, CMP, LIPA, PHOS ####[address]#### TRANSF ####[address] [place], [place] [phone] CT ABD/PEL WO IVCONon 2017 CT ABD/PEL [...] DRAIN PLACEMENT.NEAR COMPLETE RESOLUTION OF PARA/SUBHEPATIC FLUID COLLECTION.Railroad Brake Operator: NII Transcribe Date/Time: Aug 25 2017 8:07ADictated by : ASHLEY MORALES MDThisimran examination was interpreted and the report reviewed and electronically signed by: ASHLEY MORALES MD on Aug 25 2017 8:40AM [id number] Normal [facility] Magnesiumon 08-24-2017 Magnesium 2.3 mg/dL Normal 1.7-2.6 [facility] Comment on above: Performed By: #### P T, PTT, AMYL, CMP, LIPA, PHOS ####[facility] [place], [place] [phone]#### TRANSF ####[facility] [address] [place], [place] [phone] NURSING PROGon 08-24-2017 NURSING PROG HNO ID: [id number] thor: Shavonne KenRn) [place], RNService: NursingAuthor Type: Registered NurseType: Nursing Progress NoteFiled: 08/24/2017 4:58 PMNote Text: Nursing Progress NotePatient Name: Rocio JacksonMRN: [id number] Location: [place] [address]/[id number] ____Daily Note:Pt A+Ox3, flat affect, quiet. Speech clear. Skin pale and slightlyjaundiced. NSR on residential monitor. Abdomen soft and tender, 3 lap sitesOTA [...] of care.This note was completed by: Shavonne Mays RN Normal [facility] PROGRESSon 08-24-2017 PROGRESS HNO ID: [id number] thor: Michael Cedillo) AugustinService: General SurgeryAuthor Type: PhysicianType: Progress NotesFiled: 08/24/2017 4:45 PMNote Text:GENERAL SURGERY INPATIENT PROGRESS NOTENAME: Rocio JacksonMRN: [id number] 2017 8:43 AMASSESSMENT AND PLAN:Rocio Jackson is [...] kg (192 lb) SpO2 97% BMI 29.19 kg/o1Sppvlq: Breathing comfortably on RA, speaking in full sentencesAbdominal examination: Abdomen soft, non-distended, mildly tenderTubes/Drains/Stoma: PTHC drain in place, serosanguineous output, 1275mlFlatus/Bowel movement: Bowel function +Nausea/Emesis: NegativePain Control: IV dilaudid PO tylenolRenal: UOP adequateAntibiotics: AugmentinPending labs/results: None. Culture grew streptococcus mutansDate 08/23/17 07 - 08/24/17 0659 08/24/17 07 - 08/25/17 0659Shift 3896-4359 2695-4151 9918-0624 24 Hour Total [phone] 24 Hour TotalINTAKE PO 1080 882 85 5917 PO 600 439 80 8971 Supplements (mL) 480 240 720 Shift Total 1080 720 60 1860OUTPUT Urine 3 101 104 0 0 Void (ml) 100 100 0 0 Urine Incontinence/Not Saved 1 x 1 x Urine Not Saved 3 1 4 Emesis 0 0 Emesis (ml) 0 0 Tubes 625 805 621 7196 300 300 Drain/Tube Output (Drain/Tube 08/15/17 1530 Assessment Right UpperAbdomen) 50 50 0 0 Drain/Tube Output (Drain/Tube 08/19/17 1443 Biliary Right Lateral;LowerQuadrant Abdomen) 625 395 070 2298 300 300 # of BMs Number of BMs 2 x 1 x 1 x 4 x 1 x 1 x Shift Total 625 976 679 3900 300 300Weight (kg) 87.1 87.1 87.1 87.1 [...] and changes will bemade where applicable.Serena Trent MDGenest. elizabeth hospital Surgery, PGY - 1Pager #: [phone](After 6pm and weekends please contact Surgery oncall team)STAFF NOTEI have independently seen and examined the patient today. I haveindependently reviewed all the imaging and the labs. I agree with keycomponents of the resident's note above. Care plan and decision making hasbeen discussed.Doing well, no complaintsWill get CT to assess status of collectionsPTC cholangiogram to look for active leaksToms MD Froilan, MPH, FACSGeneral/Trauma/HPB SurgeryPager: [phone] Cell: [phone] 2017 Normal [facility] Phosphoruson 08-24-2017 Phosphate 2.6 mg/dL Normal 2.5-4.5 [facility] Comment on above: Performed By: #### P T, PTT, AMYL, CMP, LIPA, PHOS ####[facility] [place], [place] [phone]#### TRANSF ####[facility] [address] [place], [place] [phone] THERAPY NTon 08-24-2017 THERAPY NT HNO ID: [id number] thor: Mandi (Ot) GarnekService: Occupational TherapyAuthor Type: Occupational TherapistType: Therapy (PT/OT/Speech/Resp)Filed: 08/24/2017 1:30 PMNote Text:Occupational Therapy TreatmentSERVICE DATE: 08/24/2017SERVICE TIME: 1245 to 1300ROOM: [place] [address] ( OPERATING ROOM)Admit with Emesis X 1 Month, Abdominal Pain, Partial Duodenal Obstructionand Obstructive Jaundice, Abdominal Abscess, S/P CT Guided AbscessDrainage 08/15/17, S/P Recent Cholecystectomy 08/11/17, and ERCP 08/13/17?Recommended Discharge Disposition: Subacute/SNFRecommended Discharge Disposition Comments: (Pt hopes to continue therapyin SNF in [place])Anticipated Discharge Needs: Physical Assist at HomePhysical Assist at Home for: Ambulation;Cleaning;Laundry; Meals;MedicationManagement;S tairs;Self Care;Shopping;Transportation Recommended Discharge Equipment: Elastic Shoe Laces;Grab Bars-Shower;HandHeld Shower;Long Handled Shoe Horn;Long Handled Sponge;WheeledWalker;Rn Pain Management ;Sock Aide;Shower ChairOT Recommendations to Nursing: OOB [...] History Relevantto Therapy Includes: DM, Glaucoma, HTN, DE. For Complete Past MedicalHistory [facility]. Pt presents with decreased ability tocomplete ADL's requiring assist at this time. Pt also presents withdecreased activity tolerance, functional mobility, strength, and safety.Pt requires skilled OT services to address progression of ADL's,functional mobility, strength, increase activity tolerance, and safety.Pt has adequate support and social structure for reasonably safe dischargehome at current level. Pt is currently employed in a [employer], andAstechs watching TV. Pt has a small dog [...] dailyliving (ADL);Muscle Weakness (generalized)Interventions Provided: Therapeutic Activity (83496)Therapeutic Activity (56723) Treatment Minutes: 151 unitSkilled Intervention(s): Instructed patient [...] 15FUNCTIONAL G CODE:OT 6 Clicks Score: 18 (08/24/17 1245)Self Care Current Status (G8987): CK (08/24/171244)Self Care [...] forcomplete details for this therapy evaluation/treatment.SIGNATU RE: Mandi Jamison OTR/L PATIENT NAME: Rocio Sibley: August 24, 2017 : 1:28 PM PAGER: [phone] [facility] THERAPY NT HNO ID: [id number] thor: Adela ([facility]) Carlin: Physical TherapyAuthor Type: Physical Therapy AssistantType: Therapy (PT/OT/Speech/Resp)Filed: 08/24/2017 10:53 AMNote Text: -Attestation signed by Tonia KenPtLyric Schmitz at 08/24/2017 12:43 PMI reviewed and agree with the documentation corresponding to this therapyvisit.SIGNATURE: Tonia Schmitz, PTDATE: August 24, 2017TIME: 12:43 PM Ph ysical Therapy TreatmentSERVICE DATE: 08/24/2017SERVICE TIME: 1015 to 1040ROOM: [id number] ( OPERATING ROOM)Abdominal abscess; S/ P cholestectomy [...] Weakness (generalized);General symptoms andsigns-otherInterventions Provided: Therapeutic Exercise (56757);Gait Training (76992)Therapeutic Exercise (84746) Treatment Minutes: 101 unitSkilled Intervention(s): Instruction in therapeutic exercise for B LEstrengthening, balanceVerbal and tactile cuing provided for pace and performance; rest breaksprovided as neededGait Training (66799) Treatment Minutes: 151 unitSkilled Intervention(s): Instruction in [...] Leong PTA PATIENT NAME: Rocio Sibley: August 24, 2017 : 10:46 AM PAGER/CONTACT #: [phone] Normal [facility] Basic Metabolic Panlon 08-23 Anion gap 10 mmol/L Normal -18 [facility] Comment on above: Performed By: #### P T, PTT, AMYL, CMP, LIPA, PHOS ####[place] [address]#### TRANSF ####[place] [address] Calcium 7.7 mg/dL Low 8.5-10.5 [facility] Comment on above: Performed By: #### P T, PTT, AMYL, CMP, LIPA, PHOS ####[place] [address]#### TRANSF ####[place] [address] Chloride 104 mmol/L Normal 98-110 [facility] Comment on above: Performed By: #### P T, PTT, AMYL, CMP, LIPA, PHOS ####[place] [address]#### TRANSF ####[address] CO2 25 mmol/L Normal 23-32 [facility] Comment on above: Performed By: #### P T, PTT, AMYL, CMP, LIPA, PHOS ####[address]#### TRANSF ####[place] [address] Creatinine 0.55 mg/dL Low 0.70-1.40 [facility] Comment on above: Performed By: #### P T, PTT, AMYL, CMP, LIPA, PHOS ####[place] [address]#### TRANSF ####[place] [address] eGFR (non-black) mL/min/{1.73_m2} Normal >60 [facility] Comment on above: Performed By: #### P T, PTT, AMYL, CMP, LIPA, PHOS ####[place] [address]#### TRANSF ####[place] [address] Glucose mass conc 123 mg/dL High 65-100 [facility] Comment on above: Performed By: #### P T, PTT, AMYL, CMP, LIPA, PHOS ####[place] [address]#### TRANSF ####[place] [address] Potassium molar conc 4.1 mmol/L Normal 3.5-5.0 [facility] Comment on above: Performed By: #### P T, PTT, AMYL, CMP, LIPA, PHOS ####[place] [address]#### TRANSF ####[place] [address] Sodium 139 mmol/L Normal 135-146 [facility] Comment on above: Performed By: #### P T, PTT, AMYL, CMP, LIPA, PHOS ####[address] [phone]#### TRANSF ####[facility] [place], [place] [phone] Urea nitrogen 10 mg/dL Normal 04-22 [facility] Comment on above: Performed By: #### P T, PTT, AMYL, CMP, LIPA, PHOS ####[place] [address]#### TRANSF ####[address] [phone] Magnesiumon 08-23-2017 Magnesium 2.3 mg/dL Normal 1.7-2.6 [facility] Comment on above: Performed By: #### P T, PTT, AMYL, CMP, LIPA, PHOS ####[phone]#### TRANSF ####[address] [phone] PROGRESSon 08-23-2017 PROGRESS HNO ID: [id number] thor: Jose Damon: General SurgeryAuthor Type: PhysicianType: Progress NotesFiled: 08/23/2017 1:57 PMNote Text:PROGRESS NOTES - SURGICAL SERVICESPATIENT NAME: Rocio Boudreaux: [id number] HISTORY OF PRESENT ILLNESS:No acute events overnight. [...] suction) and keep PTHC at the gravity- for home drain management-Dispo: Continue inpatient admissionSIGNATURE: Kayleen Gonzales MDDATE: August 23, 2017TIME: 9:16 AMPatient has [...] stable.Jose Manning MDFebruary 2017 1:57 PM Normal [facility] Phosphoruson 08-23-2017 Phosphate 2.4 mg/dL Low 2.5-4.5 [facility] Comment on above: Performed By: #### P T, PTT, AMYL, CMP, LIPA, PHOS ####[place] [address]#### TRANSF ####[place] [address] Basic Metabolic Panlon 08-22 Anion gap 9 mmol/L Normal 9-18 [facility] Comment on above: Performed By: #### P T, PTT, AMYL, CMP, LIPA, PHOS ####[place] [address]#### TRANSF ####[place] [address] Calcium 7.7 mg/dL Low 8.5-10.5 [facility] Comment on above: Performed By: #### P T, PTT, AMYL, CMP, LIPA, PHOS ####[place] [address]#### TRANSF ####[place] [address] Chloride 105 mmol/L Normal 98-110 [facility] Comment on above: Performed By: #### P T, PTT, AMYL, CMP, LIPA, PHOS ####[place] [address]#### TRANSF ####[place] [address] [place] [phone] CO2 25 mmol/L Normal 23-32 [facility] Comment on above: Performed By: #### P T, PTT, AMYL, CMP, LIPA, PHOS ####[place] [address]1826[address]#### TRANSF ####[place] [address] Creatinine 0.57 mg/dL Low 0.70-1.40 [facility] Comment on above: Performed By: #### P T, PTT, AMYL, CMP, LIPA, PHOS ####[place] [address]#### TRANSF ####[place] [address] eGFR (non-black) mL/min/{1.73_m2} Normal >60 [facility] Comment on above: Performed By: #### P T, PTT, AMYL, CMP, LIPA, PHOS ####[place] [address]#### TRANSF ####[place] [address] Glucose mass conc 111 mg/dL High 65-100 [facility] [place] Comment on above: Performed By: #### P T, PTT, AMYL, CMP, LIPA, PHOS ####[address]#### TRANSF ####[place] [address] Potassium molar conc 3.7 mmol/L Normal 3.5-5.0 [facility] Comment on above: Performed By: #### P T, PTT, AMYL, CMP, LIPA, PHOS ####[place] [address]#### TRANSF ####[place] [address] Sodium 139 mmol/L Normal 135-146 [facility] Comment on above: Performed By: #### P T, PTT, AMYL, CMP, LIPA, PHOS ####[place] [address]#### TRANSF ####[phone] Urea nitrogen 8 mg/dL Low 10-25 [facility] Comment on above: Performed By: #### P T, PTT, AMYL, CMP, LIPA, PHOS ####[place] [address]#### TRANSF ####[place] [phone] CBC and Differentialon 08-22 Abs Baso <0.03 Normal <0.11 [facility] Comment on above: Performed By: #### P T, PTT, AMYL, CMP, LIPA, PHOS ####[place] [address]#### TRANSF ####[phone] Abs Vance 0.41 k/uL Normal <0.87 [facility] Comment on above: Performed By: #### P T, PTT, AMYL, CMP, LIPA, PHOS ####[place] [address]#### TRANSF ####[place] [phone] Abs Neut 3.57 k/uL Normal 1.45-7.50 [facility] Comment on above: Performed By: #### P T, PTT, AMYL, CMP, LIPA, PHOS ####[place] [address]#### TRANSF ####[place] [phone] Basophils/100 WBC Auto (Bld) 0.2 % Normal [facility] Comment on above: Performed By: #### P T, PTT, AMYL, CMP, LIPA, PHOS ####[place] [address]#### TRANSF ####[place] [phone] DTYPE Auto Diff Normal [facility] Comment on above: Performed By: #### P T, PTT, AMYL, CMP, LIPA, PHOS ####[place] [address]#### TRANSF ####[place] [phone] Eosinophils 0.15 10*3/uL Normal <0.46 [facility] Comment on above: Performed By: #### P T, PTT, AMYL, CMP, LIPA, PHOS ####[place] [address]#### TRANSF ####[place] [address] Eosinophils/100 leukocytes 2.9 % Normal [facility] Comment on above: Performed By: #### P T, PTT, AMYL, CMP, LIPA, PHOS ####[place] [address]#### TRANSF ####[place] [address] Erythrocyte distribution width Auto Ratio (RBC) 16.1 % High 11.5-15.0 [facility] Comment on above: Performed By: #### P T, PTT, AMYL, CMP, LIPA, PHOS ####[place] [address]#### TRANSF ####[place] [address] Erythrocytes (RBC) 2.90 10*6/uL Low 4.20-6.00 [facility] Comment on above: Performed By: #### P T, PTT, AMYL, CMP, LIPA, PHOS ####[place] [address]#### TRANSF ####[place] [phone] Hematocrit (HCT) 25.0 % Low 39.0-51.0 [facility] Comment on above: Performed By: #### P T, PTT, AMYL, CMP, LIPA, PHOS ####[place] [address]#### TRANSF ####[place] [phone] Hemoglobin mass conc (Bld) 8.1 g/dL Low 13.0-17.0 [facility] Comment on above: Performed By: #### P T, PTT, AMYL, CMP, LIPA, PHOS ####[place] [address]#### TRANSF ####[place] [phone] Lymphocytes 1.09 10*3/uL Normal 1.00-4.00 [facility] Comment on above: Performed By: #### P T, PTT, AMYL, CMP, LIPA, PHOS ####[place] [address]#### TRANSF ####[place] [address]34[address] Lymphocytes/100 leukocytes 20.8 % Normal [facility] Comment on above: Performed By: #### P T, PTT, AMYL, CMP, LIPA, PHOS ####[place] [address]#### TRANSF ####[place] [phone] MCH 27.9 pG Normal 26.0-34.0 [facility] Comment on above: Performed By: #### P T, PTT, AMYL, CMP, LIPA, PHOS ####[place] [address]#### TRANSF ####[phone] MCHC mass conc (RBC) 32.4 g/dL Normal 30.5-36.0 [facility] Comment on above: Performed By: #### P T, PTT, AMYL, CMP, LIPA, PHOS ####[place] [address]#### TRANSF ####[place] [phone] MCV 86.2 fL Normal 80.0-100.0 [facility] Comment on above: Performed By: #### P T, PTT, AMYL, CMP, LIPA, PHOS ####[place] [address]#### TRANSF ####[place] [address] Monocytes/100 leukocytes 7.8 % Normal [facility] Comment on above: Performed By: #### P T, PTT, AMYL, CMP, LIPA, PHOS ####[place] [address]#### TRANSF ####[place] [phone] Neutrophils/100 WBC Auto (Bld) 68.3 % Normal [facility] Comment on above: Performed By: #### P T, PTT, AMYL, CMP, LIPA, PHOS ####[place] [address]#### TRANSF ####[place] [phone] Platelet mean volume (PMV) 9.9 fL Normal 9.0-12.7 [facility] Comment on above: Performed By: #### P T, PTT, AMYL, CMP, LIPA, PHOS ####[place] 291826[address]#### TRANSF ####[place] [phone] Platelets 354 10*3/uL Normal 150-400 [facility] Comment on above: Performed By: #### P T, PTT, AMYL, CMP, LIPA, PHOS ####[place] 291826[address]#### TRANSF ####[place] [phone] WBC (Leukocytes) 5.23 10*3/uL Normal 3.70-11.00 [facility] Comment on above: Performed By: #### P T, PTT, AMYL, CMP, LIPA, PHOS ####[place] 291826[address]#### TRANSF ####[place] [phone] CONSULT PROGon 08-22-2017 CONSULT PROG HNO ID: [id number] thor: Sabrina (Resident Programs Assistant) PineiroService: Cardiovascular DiseaseAuthor Type: Nurse PractitionerType: Consult [...] 5,000 Units SUBCUTANEOUS q 8 Hphenol 1 [place] (CHLORASEPTIC) 1 [place] MUCOUS MEMBRANE (TOPICAL MOUTH ANDTHROAT) q 2 [...] Hour Labs:CBC, Coags, BMP, Mg, PhosRecent Labs 08/21/1808WBC 5.23 [...] Labs TPROT 5.3*ALB 2.1*ALT 55*AST 42*ALKPHOS 241*TBILI 0.7SIGNATURE: Sabrina Arango, BJORN PATIENT NAME: Rocio VenturaDATE: August 22, 2017 : 2:37 PM PAGER/CONTACT #: Normal [facility] Magnesiumon 08-22-2017 Magnesium 2.3 mg/dL Normal 1.7-2.6 [facility] Comment on above: Performed By: #### P T, PTT, AMYL, CMP, LIPA, PHOS ####[facility] [place], [place] [phone]#### TRANSF ####[facility] [address] [place], [place] [phone] NUTRITIONon 08-22-2017 NUTRITION HNO ID: [id number] thor: Alise Segura) BlayneaService: Nutrition TherapyAuthor Type: Registered DietitianType: NutritionFiled: 08/22/2017 [...] Weight: 87?kgResting Metabolic Rate: 1661Estimated kilocalorie needs: 8484-8322?kilocalories determined by25-28?kcal/kgEstimated protein needs:113 - ?130?grams determined [...] 5,000 Units SUBCUTANEOUS q 8 Hphenol 1 [place] (CHLORASEPTIC) 1 [place] MUCOUS MEMBRANE (TOPICAL MOUTH ANDTHROAT) q 2 [...] unitsSIGNATURE: Alise Lopez RD, LD PATIENT NAME: Rociomarisa TorresschDATE: August 22, 2017 : 2:06 PM PAGER: For further assistance and weekends please page theGroup Pager [phone] [facility] PROGRESSon 08-22-2017 PROGRESS HNO ID: [id number] thor: Jose Damon: General SurgeryAuthor Type: PhysicianType: Progress NotesFiled: 08/22/2017 3:31 PMNote Text:PROGRESS NOTES - SURGICAL SERVICESPATIENT NAME: Rocio HayesN: [id number] HISTORY OF PRESENT ILLNESS:No acute events overnight. [...] non distended.CBC, Coags, BMP, Mg, PhosRecent Labs 0 0 [...] (at the bulb suction) and cap to PTHC- CM for home drain management-Dispo: Continue inpatient admissionSIGNATURE: Kayleen Gonzales, MDDATE: August 22, 2017TIME: 8:18 AMPatient denies any abdominal pain. Still gets full with only liquids.ROMINA serosang, no bileOther biloma drain bile tinged, but SS.PTC increased output to 1.2L? only temporary success to duodenal dilation.Will watch PTC output.Possible DC soon.Jose Manning MDBanner Behavioral Health Hospitaluary 2017 3:31 PM Normal [facility] Phosphoruson 08-22-2017 Phosphate 2.6 mg/dL Normal 2.5-4.5 [facility] Comment on above: Performed By: #### P T, PTT, AMYL, CMP, LIPA, PHOS ####[facility] [place], [place] [phone]#### TRANSF ####[facility] [address] [place], [place] [phone] CASE MANAGEMon 08-21-2017 CASE MANAGEM HNO ID: [id number] thor: Alexandrea (Rn) Thom, RNService: Care ManagementAuthor Type: Registered NurseType: Care Mgt Progress NoteFiled: 08/21/2017 3:26 PMNote Text:CARE MANAGEMENT PROGRESS NOTESERVICE DATE: 08/21/2017SERVICE TIME: 10:02 AM LOS: 8 daysNeeds Prior to Discharge: To Be Determined;OT/PT EvaluationPer discussion with Dr Duffy.HHC is planned at or.PT OT evals are needed, pt may also need Home PT OT.[facility] accepted pt for drain care.Pt will stay with his sister. Briana Muller at [place].[address] [place] [address]Cfkfgskkn [facility] was notified.[facility] for SN PT OT is planned.[facility] Home [facility] was updated.SIGNATURE: Alexandrea Tomas RN PATIENT NAME: Rocio VizcarraTE: August 21, 2017 : 10:01 AM PAGER/CONTACT #: [phone] Normal [facility] CBC and Differentialon 08-21 Abs Baso <0.03 Normal <0.11 [facility] Comment on above: Performed By: #### P T, PTT, AMYL, CMP, LIPA, PHOS ####[place] [address]#### TRANSF ####[place] [address] [phone] Abs Vance 0.43 k/uL Normal <0.87 [facility] Comment on above: Performed By: #### P T, PTT, AMYL, CMP, LIPA, PHOS ####[place] [address]#### TRANSF ####[place] [address] [phone] Abs Neut 4.17 k/uL Normal 1.45-7.50 [facility] Comment on above: Performed By: #### P T, PTT, AMYL, CMP, LIPA, PHOS ####[place] [address]#### TRANSF ####[place] [address] [phone] Basophils/100 WBC Auto (Bld) 0.4 % Normal [facility] Comment on above: Performed By: #### P T, PTT, AMYL, CMP, LIPA, PHOS ####[place] [address]#### TRANSF ####[place] [address] [place] [phone] DTYPE Auto Diff Normal [facility] Comment on above: Performed By: #### P T, PTT, AMYL, CMP, LIPA, PHOS ####[place] [address]#### TRANSF ####[address] AvReginald V[place] [phone] Eosinophils 0.18 10*3/uL Normal <0.46 [facility] Comment on above: Performed By: #### P T, PTT, AMYL, CMP, LIPA, PHOS ####[place] [address]#### TRANSF ####[address] Av[address]inal[address] [place] [address] Eosinophils/100 leukocytes 3.2 % Normal [facility] Comment on above: Performed By: #### P T, PTT, AMYL, CMP, LIPA, PHOS ####[place] [address]#### TRANSF ####[place] [address] [place] [phone] Erythrocyte distribution width Auto Ratio (RBC) 15.9 % High 11.5-15.0 [facility] Comment on above: Performed By: #### P T, PTT, AMYL, CMP, LIPA, PHOS ####[place] [address]#### TRANSF ####[place] [address] [address] [place] [phone] Erythrocytes (RBC) 3.16 10*6/uL Low 4.20-6.00 [facility] Comment on above: Performed By: #### P T, PTT, AMYL, CMP, LIPA, PHOS ####[place] [address]#### TRANSF ####[phone] Hematocrit (HCT) 27.9 % Low 39.0-51.0 [facility] Comment on above: Performed By: #### P T, PTT, AMYL, CMP, LIPA, PHOS ####[place] [address]#### TRANSF ####[phone] Hemoglobin mass conc (Bld) 8.9 g/dL Low 13.0-17.0 [facility] Comment on above: Performed By: #### P T, PTT, AMYL, CMP, LIPA, PHOS ####[place] [address]#### TRANSF ####[place] [phone] Lymphocytes 0.84 10*3/uL Low 1.00-4.00 [facility] Comment on above: Performed By: #### P T, PTT, AMYL, CMP, LIPA, PHOS ####[place] [address]#### TRANSF ####[place] [phone] Lymphocytes/100 leukocytes 14.9 % Normal [facility] Comment on above: Performed By: #### P T, PTT, AMYL, CMP, LIPA, PHOS ####[place] [address]#### TRANSF ####[place] [address]65734[address] MCH 28.2 pG Normal 26.0-34.0 [facility] Comment on above: Performed By: #### P T, PTT, AMYL, CMP, LIPA, PHOS ####[place] [address]#### TRANSF ####[place] [phone] MCHC mass conc (RBC) 31.9 g/dL Normal 30.5-36.0 [facility] Comment on above: Performed By: #### P T, PTT, AMYL, CMP, LIPA, PHOS ####[place] [address]#### TRANSF ####[place] [phone] MCV 88.3 fL Normal 80.0-100.0 [facility] Comment on above: Performed By: #### P T, PTT, AMYL, CMP, LIPA, PHOS ####[place] [address]#### TRANSF ####[place] [address]65734[address] Monocytes/100 leukocytes 7.6 % Normal [facility] Comment on above: Performed By: #### P T, PTT, AMYL, CMP, LIPA, PHOS ####[place] [address]#### TRANSF ####[place] [phone] Neutrophils/100 WBC Auto (Bld) 73.9 % Normal [facility] Comment on above: Performed By: #### P T, PTT, AMYL, CMP, LIPA, PHOS ####[place] [address]#### TRANSF ####[place] [phone] Platelet mean volume (PMV) 10.1 fL Normal 9.0-12.7 [facility] Comment on above: Performed By: #### P T, PTT, AMYL, CMP, LIPA, PHOS ####[place] [address]#### TRANSF ####[place] [phone] Platelets 380 10*3/uL Normal 150-400 [facility] Comment on above: Performed By: #### P T, PTT, AMYL, CMP, LIPA, PHOS ####[place] [address]#### TRANSF ####[phone] WBC (Leukocytes) 5.64 10*3/uL Normal 3.70-11.00 [facility] Comment on above: Performed By: #### P T, PTT, AMYL, CMP, LIPA, PHOS ####[place] [address]#### TRANSF ####[place] [phone] CONSULT PROGon 08-21-2017 CONSULT PROG HNO ID: [id number] thor: Jessee AndersonlaService: Cardiovascular DiseaseAuthor Type: PhysicianType: Consult Progress NoteFiled: [...] 5,000 Units SUBCUTANEOUS q 8 Hphenol 1 [place] (CHLORASEPTIC) 1 [place] MUCOUS MEMBRANE (TOPICAL MOUTH ANDTHROAT) q 2 [...] Hour Labs:CBC, Coags, BMP, Mg, PhosRecent Labs 08/21/1804WBC 5.64 -- 5.78 6.57HB 8.9* -- 8.3* [...] 0.9SIGNATURE: Sabrina Arango CNP PATIENT NAME: Rocio VenturaDATE: August 21, 2017 : 2:42 PM PAGER/CONTACT #: [facility] CONSULT PROG HNO ID: [id number] thor: Linda (Resident Programs Assistant) Tonye: GastroenterologyAuthor Type: Nurse PractitionerType: Consult Progress NoteFiled: [...] 5,000 Units SUBCUTANEOUS q 8 Hphenol 1 [place] (CHLORASEPTIC) 1 [place] MUCOUS MEMBRANE (TOPICAL MOUTH ANDTHROAT) q 2 [...] today's visit:Most recent labs and imaging results.Impression/Recommend ationsMr. Jackson is a 62 year old male [...] for assistance with strengthening andnutritional support?Linda Avalos CNPBad Axe Gastro[facility]?Thank you for allowing us to participate in the care of this patient.Please call with questions or concerns.SIGNATURE: Linda Avalos CNP PATIENT NAME: Rocio JacksonDATE: August 21, 2017 : 9:34 AM PAGER: [phone] Normal [facility] Magnesiumon 08-21-2017 Magnesium 2.2 mg/dL Normal 1.7-2.6 [facility] Comment on above: Performed By: #### P T, PTT, AMYL, CMP, LIPA, PHOS ####[facility] [place], [place] [phone]#### TRANSF ####[facility] [address] [place], [place] [phone] PROGRESSon 08-21-2017 PROGRESS HNO ID: [id number] thor: Khadar Guo: General SurgeryAuthor Type: PhysicianType: Progress NotesFiled: 08/21/2017 6:50 PMNote Text:PROGRESS NOTES - SURGICAL SERVICESPATIENT NAME: Rocio JacksonMRN: [id number] HISTORY OF PRESENT ILLNESS:Got PTHC on 08/19. [...] and intactCBC, Coags, BMP, Mg, PhosRecent Labs 08/20/1805WBC -- 5.78 6.57HB -- 8.3* 8.8*HCT -- [...] Continue inpatient admissionKAEL HERNANDEZ MD (Res)General SurgeryPager: [phone]*On weekends or nights (after 1800) please contact the surgery on callpager.*Att: As above. Hopeful for home on full liquids/protein shakestomorrow.Consider dc of ROMINA drain before DC.PtC must be kept to gravity since it could not be advanced to duodenum.Outpt f/u with Dr Jolley as soon as available.Khadar Duffy MDFebruary 2017 6:50 PM Normal [facility] Phosphoruson 08-21-2017 Phosphate 2.9 mg/dL Normal 2.5-4.5 [facility] Comment on above: Performed By: #### P T, PTT, AMYL, CMP, LIPA, PHOS ####[facility] [place] [phone]#### TRANSF ####[facility] [address] [place], [place] [phone] THERAPY NTon 08-21-2017 THERAPY NT HNO ID: [id number] thor: Sujata (Pt) PapcunService: Physical TherapyAuthor Type: Physical TherapistType: Therapy (PT/OT/Speech/Resp)Filed: 08/21/2017 2:10 PMNote Text:Physical Therapy EvaluationSERVICE DATE: 08/21/2017SERVICE TIME: 1255 to 1320ROOM: [place] [address] ( OPERATING ROOM)Recommended Discharge Disposition: Home PTAnticipated [...] drain. Patient's pertinent PMHx includesDM, glaucoma; HTN; DE; s/p DE; 2 stents. Patient's impairments as relatedto Physical [...] improve safety and independence with functionalmobility. Recommend [facility] PT with pt's approval.Tolerance Limited By Pain;FatiguePhysical [...] Reduced mobility-other;Muscle Weakness (generalized)Interventions Provided: Evaluation;Gait Training (89383)$ Evaluation-Low (57102) Billed Units: 1 unitGait Training (67678) Treatment Minutes: 101 unitSkilled Intervention(s): Instruction in [...] details for this therapy evaluation/treatment.SIGNATU RE: Sujata Ohara, PT PATIENT NAME: Rocio JacksonDATE: August 21, 2017 : 2:05 PM PAGER/CONTACT #: [phone] [facility] THERAPY NT HNO ID: [id number] thor: Mandi (Ot) GarnekService: Occupational TherapyAuthor Type: Occupational TherapistType: Therapy (PT/OT/Speech/Resp)Filed: 08/21/2017 11:25 AMNote Text:Occupational Therapy EvaluationSERVICE DATE: 08/21/2017SERVICE TIME: 0845 to 909ROOM: [place] [address] ( OPERATING ROOM)Admit with Emesis X 1 Month, Abdominal Pain, Partial Duodenal Obstructionand Obstructive Jaundice, Abdominal Abscess, S/P CT Guided AbscessDrainage 08/15/17, S/P Recent Cholecystectomy 08/11/17, and ERCP 08/13/17Recommended Discharge Disposition: Home OTAnticipated Discharge Needs: Physical Assist at Home;EquipmentPhysical Assist at Home for: Cleaning;Laundry;Meals;SelfC are;Shopping;TransportationR ecommended Discharge Equipment: Elastic Shoe Laces;Grab Bars-Shower;HandHeld Shower;Long Handled Shoe Horn;Long Handled Sponge;WheeledWalker;Rn Pain Management ;Sock Aide;Shower ChairOT Recommendations to Nursing: OOB [...] History Relevantto Therapy Includes: DM, Glaucoma, HTN, DE. For Complete Past MedicalHistory Please Refer to [...] level. Pt is currently employed in a [employer], Assurely watching TV. Pt has a small dog [...] dailyliving (ADL);Muscle Weakness (generalized)Interventions Provided: Evaluation;Therapeutic Activity (19548)$ Evaluation-Low (41324) Billed Units: 1 unitTherapeutic Activity (81761) Treatment Minutes: 101 unitSkilled Intervention(s): Instructed patient [...] prior toadmit, and works FT in a [employer].OBJECTIVE:Responsiven ess: Alert;AwakeFollows Commands: 3-step CommandsVision Deficits: Wears [...] forcomplete details for this therapy evaluation/treatment.SIGNATU RE: Mandi Jamison OTR/L PATIENT NAME: Rocio VenturaDATE: August 21, 2017 : 11:19 AM PAGER: [phone] [facility] CASE MANAGEMon 08-20-2017 CASE MANAGEM HNO ID: [id number] thor: Alexandrea (Kevin) MOUSTAPHA Tomaservice: Care ManagementAuthor Type: Registered NurseType: Care Mgt Progress NoteFiled: 08/20/2017 1:48 PMNote Text:MULTIDISCIPLINARY ROUNDSSERVICE DATE: 08/20/2017 ADMISSION DATE: 08/13/2017SERVICE TIME: 1:46 PM ANTICIPATED D/C DATE: List:ACTIVE PROBLEM LISTDuodenal ObstructionSevere Protein-Calorie Malnutrition (Hcc)Attendees Present at Rounds:Color Repairer: Chantelleurse Tailor Apprentice/Cofounder Nurse Tailor Apprentice: Roderick Nurse: Laura Discussed on Rounds:Discharge NeedsPlan of CareAnticipated Discharge Disposition:[facility] FacilityPer discussion with Dr Duffy pt will require [facility] minimally.PT OT evals are needed.Pt has multiple drains.Last Vitals: BP 129/83 Pulse 73 Temp (Src) 98.6 (Oral) Resp 20 Ht5' 8 (1.73m) Wt 192 lb (87.1kg) SpO2 96% BMI 29.20 kg/(m2).Nursing: Fluid/Electrolyte Goal Target Achievement Date: 08/24/17Mobility Goal Target Achievement Date: 08/24/17Pain Goal Target Achievement Date: 08/24/17DOCUMENTED BY: Alexandrea Tomas RN PATIENT NAME: Rocio BrianschDATE: August 20, 2017 : 1:46 PM CSN: [id number] Normal [facility] CBCon 08-20-2017 Erythrocyte distribution width Auto Ratio (RBC) 15.8 % High 11.5-15.0 [facility] Comment on above: Performed By: #### C BC, CMP, MG1, PHOS ####[place] [address] Erythrocytes (RBC) 2.93 10*6/uL Low 4.20-6.00 [facility] Comment on above: Performed By: #### C BC, CMP, MG1, PHOS ####[place] [address] Hematocrit (HCT) 26.0 % Low 39.0-51.0 [facility] Comment on above: Performed By: #### C BC, CMP, MG1, PHOS ####[place] [address] Hemoglobin mass conc (Bld) 8.3 g/dL Low 13.0-17.0 [facility] Comment on above: Performed By: #### C BC, CMP, MG1, PHOS ####[place] [address] MCH 28.3 pG Normal 26.0-34.0 [facility] Comment on above: Performed By: #### C BC, CMP, MG1, PHOS ####[place] [address] MCHC mass conc (RBC) 31.9 g/dL Normal 30.5-36.0 [facility] Comment on above: Performed By: #### C BC, CMP, MG1, PHOS ####[place] [address] MCV 88.7 fL Normal 80.0-100.0 [facility] Comment on above: Performed By: #### C BC, CMP, MG1, PHOS ####[place] [address] Platelet mean volume (PMV) 9.6 fL Normal 9.0-12.7 [facility] Comment on above: Performed By: #### C BC, CMP, MG1, PHOS ####[place] [phone] Platelets 331 10*3/uL Normal 150-400 [facility] Comment on above: Performed By: #### C BC, CMP, MG1, PHOS ####[place] [phone] WBC (Leukocytes) 5.78 10*3/uL Normal 3.70-11.00 [facility] Comment on above: Performed By: #### C BC, CMP, MG1, PHOS ####[place] [phone] Comp Metabolic Panelon 08-20 Alanine aminotransferase (ALT) 55 U/L High 5-50 [facility] Comment on above: Performed By: #### C BC, CMP, MG1, PHOS ####[place] [phone] Albumin 2.1 g/dL Low 3.5-5.0 [facility] Comment on above: Result Comment: Revi ewed Performed By: #### C BC, CMP, MG1, PHOS ####[place] [phone] Alkaline phosphatase (ALP) 241 U/L High 40-150 [facility] Comment on above: Performed By: #### C BC, CMP, MG1, PHOS ####[place] [phone] Anion gap 9 mmol/L Normal 9-18 [facility] Comment on above: Performed By: #### C BC, CMP, MG1, PHOS ####[place] [phone] Aspartate aminotransferase (AST) 42 U/L High 7-40 [facility] Comment on above: Result Comment: Resu lts may be falsely increased due to interference by hemolysis. Suggest reorder as clinically indicated. Performed By: #### C BC, CMP, MG1, PHOS ####[place] [address] Bilirubin (total) 0.7 mg/dL Normal 0.0-1.5 [facility] [place] Comment on above: Performed By: #### C BC, CMP, MG1, PHOS ####[place] [address] Calcium 7.6 mg/dL Low 8.5-10.5 [facility] Comment on above: Performed By: #### C BC, CMP, MG1, PHOS ####[place] [address] Chloride 109 mmol/L Normal 98-110 [facility] Comment on above: Performed By: #### C BC, CMP, MG1, PHOS ####[place] [address] CO2 23 mmol/L Normal 23-32 [facility] Comment on above: Performed By: #### C BC, CMP, MG1, PHOS ####[place] [address] Creatinine 0.68 mg/dL Low 0.70-1.40 [facility] Comment on above: Performed By: #### C BC, CMP, MG1, PHOS ####[place] [address] eGFR (non-black) mL/min/{1.73_m2} Normal >60 [facility] Comment on above: Performed By: #### C BC, CMP, MG1, PHOS ####[place] [address] Glucose mass conc 117 mg/dL High 65-100 [facility] [place] Comment on above: Performed By: #### C BC, CMP, MG1, PHOS ####[place] [address] Potassium molar conc 3.9 mmol/L Normal 3.5-5.0 [facility] Comment on above: Performed By: #### C BC, CMP, MG1, PHOS ####[place] [id number] [place] [address] Protein 5.3 g/dL Low 6.0-8.4 [facility] Comment on above: Performed By: #### C BC, CMP, MG1, PHOS ####[place] [address] Sodium 141 mmol/L Normal 135-146 [facility] Comment on above: Performed By: #### C BC, CMP, MG1, PHOS ####[place] [address] Urea nitrogen 6 mg/dL Low 10-25 [facility] Comment on above: Performed By: #### C BC, CMP, MG1, PHOS ####[place] [address] Magnesiumon 08-20-2017 Magnesium 2.2 mg/dL Normal 1.7-2.6 [facility] Comment on above: Performed By: #### C BC, CMP, MG1, PHOS ####[place] [address] NURSING PROGon 08-20-2017 NURSING PROG HNO ID: [id number] thor: Maryanne (Rn) Arch, RNService: (none)Author Type: Registered NurseType: Nursing Progress NoteFiled: 08/20/2017 9:53 AMNote Text: Nursing Progress NotePatient Name: Rocio TorresDary: [id number] [address]: [address]36/[id number] ____0945 - attempted to flush right double lumen PICC, both lumens are patentwith positive blood return, restarted ordered IV fluids. Patienttolerating wellThis note was completed by: Maryanne Bolanos RN [facility] PROGRESSon 08-20-2017 PROGRESS HNO ID: [id number] thor: Khadar Guo: General SurgeryAuthor Type: PhysicianType: Progress NotesFiled: 08/20/2017 12:27 PMNote Text:PROGRESS NOTES - SURGICAL SERVICESPATIENT NAME: Rocio Boudreaux: [id number] HISTORY OF PRESENT ILLNESS:Got PTHC yesterday. No [...] and PTHC to gravity-Dispo: Continue inpatient admissionSIGNATURE: Stacyteresa Christian, MDDATE: August 20, 2017TIME: 7:48 AMAttending: As [...] forPAF.Will likely remove ROMINA then start in am.Melanie Scanlonuary 2017 12:27 PM Normal [facility] Phosphoruson 08-20-2017 Phosphate 2.9 mg/dL Normal 2.5-4.5 [facility] Comment on above: Performed By: #### C BC, CMP, MG1, PHOS ####[address]C[place], [place] [phone] ANES Ila 08-19-2017 ANES POST HNO ID: [id number] thor: Craig Richardsonice: AnesthesiologyAuthor Type: AnesthesiologistType: Anesthesia PostOpFiled: 08/19/2017 4:21 PMNote Text:POST ANESTHESIA EVALUATION NOTESERVICE DATE: 08/19/2017SERVICE TIME: 4:20 PMDOB: 1955Vitals: 08/19/1807Temp: 37 ?C (98.6 ?F) 36.9 ?C (98.5 ?F) 36.9 ?C (98.5 ?F) 36.2 ?C (97.2?F) 08/19/1814BP: 121/72 115/74 114/75 116/72 08/19/1814Pulse: 87 87 87 88 08/19/1814Resp: 16 [...] Remarks:SIGNATURE: Craig Jean MD PATIENT NAME: Rocio BrianschDATE: August 19, 2017 : 4:20 PM PAGER/CONTACT #: [facility] ANES PREOPon 08-19-2017 ANES PREOP HNO ID: [id number] thor: Brian Gannonice: AnesthesiologyAuthopatrice Type: AnesthesiologistType: Anesthesia PreOpFiled: 08/19/2017 6:27 PMNote Text:REGIONAL ANESTHESIOLOGY DAY OF SURGERY NOTEPATIENT NAME: Rocio Boudreaux: [id number]: 1955Procedure(s) (LRB):ANESTHESIA FOR NON-INVASIVE IMAGING OR RADIATION THERAPY (N/A)Surgeon(s):Radiology Marquise TritleEstimated body mass index is 29.19 kg/(m2) [...] 39.8 08/15/2017PT INR 1.0 08/17/2017Creatinine 0.58 08/19/2017EKG:afibVitals: 5 08/19/1815BP: 114/75 116/72 100/54 113/65Pulse: 87 88 [...] Date- ANGIOPLASTY HX 05/15/2011 2 stents s/p DE;[facility]- CHOLECYSTECTOMY 08/11/2017 [facility]- PICC LINE INSERT/CONSULT 08/16/2017No family history on file.Social History:Social HistorySubstance Use Topics- Smoking status: Former Smoker Types: Cigarettes Quit date: 2010- Smokeless tobacco: Never Used- Alcohol use 1.5 oz/week 1 Cans of Beer (12oz) per week Comment: occasional beerNo current facility-administered medications on file prior to encounter.No current outpatient prescriptions on file prior to encounter.Inpatient medications reviewed in [employer].I have interviewed and examined the patient. I have reviewed the medicalrecord and/or the pre-anesthesia evaluation, pertinent labs, and testresults.Significant changes in the patient's condition since the History andPhysical, not otherwise documented in primary service progress notes: NoThis contains updated information obtained within 48 hours ofSurgery/Procedure.SIGNATUR E: Brian Orona MD PATIENT NAME: Rocio JacksonDATE: August 19, 2017 : 1220 PAGER/CONTACT #: [phone] (pager) [facility] BRIEF OP NOTon 08-19-2017 BRIEF OP NOT HNO ID: [id number] thor: Vanessa GarciaSer: RadiologyAuthor Type: PhysicianType: Brief Op NoteFiled: 08/19/2017 2:57 PMNote Text:BRIEF OPERATIVE / PROCEDURE NOTESurgery/Procedure Date: 08/19/17Incision/Procedure Start Time:Incision Close/Procedure End Time:Surgeon(s)/Proceduralis t(s) and Cofounder(s):Dusty Garcia - PrimaryProcedure(s): R PTHC and Int/Ext biliary drainAnesthesia: GeneralFindings: Mildly dilated IH ducts. NO filling defects. Severe D2-3strictureEstimated Blood Loss: MinimalSpecimens: NoneComplications: NonePre-Op/Pre-Procedure Diagnosis: Duodenal massPost-Op/Post-Procedure Diagnosis: SameSIGNATURE: Vanessa Garcia MD PATIENT NAME: Rocio Sibley: August 19, 2017 : 2:56 PM PAGER/CONTACT #: Normal [facility] CBCon 08-19-2017 Erythrocyte distribution width Auto Ratio (RBC) 15.4 % High 11.5-15.0 [facility] Comment on above: Performed By: #### C BC, CMP, MG1, PHOS ####[place] [address] Erythrocytes (RBC) 3.17 10*6/uL Low 4.20-6.00 [facility] Comment on above: Performed By: #### C BC, CMP, MG1, PHOS ####[place] [address] Hematocrit (HCT) 27.7 % Low 39.0-51.0 [facility] Comment on above: Performed By: #### C BC, CMP, MG1, PHOS ####[place] [address] Hemoglobin mass conc (Bld) 8.8 g/dL Low 13.0-17.0 [facility] Comment on above: Performed By: #### C BC, CMP, MG1, PHOS ####[place] [address] MCH 27.8 pG Normal 26.0-34.0 [facility] Comment on above: Performed By: #### C BC, CMP, MG1, PHOS ####[place] [address] MCHC mass conc (RBC) 31.8 g/dL Normal 30.5-36.0 [facility] Comment on above: Performed By: #### C BC, CMP, MG1, PHOS ####[place] [address] MCV 87.4 fL Normal 80.0-100.0 [facility] Comment on above: Performed By: #### C BC, CMP, MG1, PHOS ####[place] [phone] Platelet mean volume (PMV) 9.7 fL Normal 9.0-12.7 [facility] Comment on above: Performed By: #### C BC, CMP, MG1, PHOS ####[place] [address] Platelets 344 10*3/uL Normal 150-400 [facility] Comment on above: Performed By: #### C BC, CMP, MG1, PHOS ####[place] [phone] WBC (Leukocytes) 6.57 10*3/uL Normal 3.70-11.00 [facility] Comment on above: Performed By: #### C BC, CMP, MG1, PHOS ####[place] [phone] Comp Metabolic Panelon 08-19 Alanine aminotransferase (ALT) 53 U/L High 5-50 [facility] Comment on above: Performed By: #### C BC, CMP, MG1, PHOS ####[place] [phone] Albumin 2.5 g/dL Low 3.5-5.0 [facility] Comment on above: Performed By: #### C BC, CMP, MG1, PHOS ####[place] [phone] Alkaline phosphatase (ALP) 249 U/L High 40-150 [facility] Comment on above: Performed By: #### C BC, CMP, MG1, PHOS ####[place] [address]1826[address]10 Anion gap 11 mmol/L Normal 9-18 [facility] Comment on above: Performed By: #### C BC, CMP, MG1, PHOS ####[place] [address] Aspartate aminotransferase (AST) 27 U/L Normal 7-40 [facility] Comment on above: Performed By: #### C BC, CMP, MG1, PHOS ####[place] [address] Bilirubin (total) 0.9 mg/dL Normal 0.0-1.5 [facility] [place] Comment on above: Performed By: #### C BC, CMP, MG1, PHOS ####[place] [address] Calcium 7.6 mg/dL Low 8.5-10.5 [facility] Comment on above: Performed By: #### C BC, CMP, MG1, PHOS ####[place] [phone] Chloride 108 mmol/L Normal 98-110 [facility] Comment on above: Performed By: #### C BC, CMP, MG1, PHOS ####[address] CO2 23 mmol/L Normal 23-32 [facility] Comment on above: Performed By: #### C BC, CMP, MG1, PHOS ####[place] [address]1826[address] Creatinine 0.58 mg/dL Low 0.70-1.40 [facility] Comment on above: Performed By: #### C BC, CMP, MG1, PHOS ####[place] [address]1826[address] eGFR (non-black) mL/min/{1.73_m2} Normal >60 [facility] Comment on above: Performed By: #### C BC, CMP, MG1, PHOS ####[place] [address] Glucose mass conc 144 mg/dL High 65-100 [facility] [place] Comment on above: Performed By: #### C BC, CMP, MG1, PHOS ####[facility] [place], [place] [phone] Potassium molar conc 3.4 mmol/L Low 3.5-5.0 [facility] Comment on above: Performed By: #### C BC, CMP, MG1, PHOS ####[facility] [place], [place] [phone] Protein 5.6 g/dL Low 6.0-8.4 [facility] Comment on above: Performed By: #### C BC, CMP, MG1, PHOS ####[place] [id number] [place], [place] [phone] Sodium 142 mmol/L Normal 135-146 [facility] Comment on above: Performed By: #### C BC, CMP, MG1, PHOS ####[place] [address] [place], [place] [phone] Urea nitrogen 7 mg/dL Low 10-25 [facility] Comment on above: Performed By: #### C BC, CMP, MG1, PHOS ####[place] [id number] [place], [place] [phone] CATH BILI DRAIN INT -EXTon 08-19-[address] CATH BILI DRAIN INT-EXT * * *Final Report* * *DATE OF EXAM: Aug 19 2017 2:56PM [facility] [id number] - IR PLACE CATH BILI DRAIN [...] Air Kerma: 1529.0 mGyDose Area Product (DAP): 915524.0 mGy*qp3Ohyhhq Time: 46:36 min:secRadiation dose exceed 5 Gy: [...] an Alvarez Set dilator. Using a 4 Turkmen Kumpe catheter in conjunction with a glide wire, access was obtained into the small bowel. Despite multiple attempts with multiple wires and catheters, the duodenal stricture could not be passed [facility]. Over an Amplatz super stiff guide [...] cm internal external biliary drainage catheter, with [place] loop in small bowel and proximal sideholes [...] Specimens: 0: Surgical pathologyATTENDING RADIOLOGIST: Dusty Garcia M.D.OIL SEPARATOR: NoneThe procedure was performed by the:attending radiologist, without an certified medical technician assistant.The attending radiologist performed the following procedural activities: Entire procedure.IMPRESSION:SUCCESS FUL PTHC AND INTERNAL/EXTERNAL BILIARY DRAIN PLACEMENT FROM RIGHT-SIDED APPROACH.CHOLANGIOGRAM DEMONSTRATING MODERATE INTRA AND EXTRA HEPATIC BILIARY DILATION.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.THE PATIENT MAY RETURN IN 8 WEEKS FOR ROUTINE CATHETER CHANGE IF LONG-TERM PERCUTANEOUS ACCESS IS REQUIRED.Railroad Brake Operator: NII Transcribe Date/Time: Aug 19 2017 3:26PDictated by : VANESSA GARCIA MDThis examination was interpreted and the report reviewed and electronically signed by: VANESSA GARCIA MD on Aug 21 2017 3:05PM EST Normal [facility] Magnesiumon 08-19-2017 Magnesium 2.2 mg/dL Normal 1.7-2.6 [facility] Comment on above: Performed By: #### C BC, CMP, MG1, PHOS ####[facility] [place], [place] [phone] NURSING PROGon 08-19-2017 NURSING PROG HNO ID: [id number] thor: Shavonne (Rn) [place], RNService: NursingAuthor Type: Registered NurseType: Nursing Progress NoteFiled: 08/19/2017 5:27 PMNote Text: Nursing Progress NotePatient Name: Rocio HayesN: [id number] Location: [place] [address]/[id number] ____Pt returned from PACU in stable condition. Right lateral lower quadrantdrain patent, draining brown, bilious fluid. A+Ox3, speech clear.Medicated for c/o generalized pain. Glucose 112. NPO order continued,green surgical team paged for updated orders.This note was completed by: Shavonne Mays RN [facility] NURSING PROG HNO ID: [id number] Author: Paty (Rn) KEVIN Cardoza Service: Nursing Author Type: Registered Nurse Type: Nursing Progress Note Filed: 08/19/2017 3:26 PM Note Text: Biliary tube that is the latest tube draining baldwin and rust colored.} [facility] NURSING PROG HNO ID: [id number] thor: Latanya (Rn) MOUSTAPHA Larsenervice: RadiologyAuthor Type: Registered NurseType: Nursing Progress NoteFiled: 08/19/2017 11:47 AMNote Text:PATIENT EDUCATION TOPIC: PROCEDURE / SURGERY: Procedure/Surgery: PTHCPATIENT NAME: Rocio Boudreaux: [id number] LOCATION: [place] [address]/[id number] S TO LEARNCOGNITIVE ABILITY: Alert and orientedMOTIVATION TO LEARN: EagerInterestedFAMILY SUPPORT: Unable to assess - Family not presentINSTRUCTION PROVIDED TO: PatientPATIENT LEARNS BEST BY: Individual InstructionWritten Instruction - Hand-outsVerbal InstructionFACTORS AFFECTING LEARNING: NonePHYSICAL LIMITATIONS AFFECTING LEARNING: NoneLEARNING RESPONSEDIAGNOSIS: ADULT: Duodenal massPATIENT/FAMILY RESPONSE: Verbalizes understanding of: JZXD-PHVGNQIRGSGELYWMQKYDA-H orrect actions to take to reduce post procedurecomplicationsPRE-[place] OCEDURE INSTRUCTIONS-Correct action to take to follow pre-procedureinstructionsMET HOD OF INSTRUCTION: Individual instructionWritten instruction - handoutsVerbal instructionFOLLOW-UP PLAN: Follow-up with Primary CareINSTRUCTIONAL AIDS USED: NASUPPLEMENTAL MATERIAL PROVIDED TO PATIENT: NoneREFERRAL (RECOMMENDATION): NoneElectronically Signed By: Latanya Larsen RN [facility] NURSING PROG HNO ID: [id number] thor: Jennifer Humphries (Rn) Eleanor, RNService: (none)Author Type: Registered NurseType: Nursing Progress NoteFiled: 08/19/2017 3:24 AMNote Text: Nursing Progress NotePatient Name: Rocio HayesN: [id number] Location: [place] [address]/[id number] ____ Pt with mild abd pain of 3 or less tonight. Tylenol controlling. Ptaware if needed may have pain pills. Accordian drain flushed at 2100 perorder for positive return of sterile NS and brown liquid.This note was completed by: Jennifer Webster, KEVIN [facility] NUTRITIONon 08-19-2017 NUTRITION HNO ID: [id number] thor: Alise Segura) BarsaService: Nutrition TherapyAuthor Type: [...] 87 kgResting Metabolic Rate: 1661Estimated kilocalorie needs: 8544-9328 kilocalories determined by 25-28kcal/kgEstimated protein needs:113 - [...] kg (192 lb) SpO2 98% BMI 29.19 kg/u9[facility] 313693PISI 144*BUN 7*CREAT 0.58*NA 142K 3.4*CHLOR 108CO2 23ALB [...] 5,000 Units SUBCUTANEOUS q 8 Hphenol 1 [place] (CHLORASEPTIC) 1 [place] MUCOUS MEMBRANE (TOPICAL MOUTH ANDTHROAT) q 2 [...] PRNIntake/Output 08/15/17 0700 - 08/16/17 0659 08/16/17 07 - 08/17/17 0659 700 - 08/18/17 0659 08/18/17 0700 - 08/19/17 0659 08/19/17 0700 -08/20/17 0659 Intake (ml) 3079 2570.4 [address] [...] RD, LD PATIENT NAME: Rocio FrischDATE: August 19, 2017 : 2:05 PM PAGER: For further assistance and weekends please page theGroup Pager [phone] [facility] PROGRESSon 08-19-2017 PROGRESS HNO ID: [id number] thor: Khadar DuffyService: General SurgeryAuthor Type: PhysicianType: Progress NotesFiled: 08/19/2017 [...] may need corpak placed by GI.Khadar Duffy MDFebruary 2017 9:48 PMAddendum: Patient also demonstrates severe protein calorie malnutrition.Since his duodenal obstruction has been dilated, we will try POreplenishment, and possibly may need enteral feeds.Khadar Duffy MDFebruary 2017 9:56 PM [facility] Phosphoruson 08-19-2017 Phosphate 1.9 mg/dL Low 2.5-4.5 [facility] Comment on above: Performed By: #### C BC, CMP, MG1, PHOS ####[facility] [place], [place] [phone] CASE MANAGEMon 08-18-2017 CASE MANAGEM HNO ID: [id number] thor: Alexandrea (Rn) MOUSTAPHA Tomaservice: Care ManagementAuthor Type: Registered NurseType: Care Mgt Progress NoteFiled: 08/18/2017 2:30 PMNote Text:MULTIDISCIPLINARY ROUNDSSERVICE DATE: 08/18/2017 ADMISSION DATE: 08/13/2017SERVICE TIME: 2:27 PM ANTICIPATED D/C DATE: 1-3 daysProblem List:ACTIVE PROBLEM LISTDuodenal ObstructionSevere Protein-Calorie Malnutrition (Hcc)Attendees Present at Rounds:Color Repairer: Roderick Nurse: Laura Discussed on Rounds:Discharge NeedsPlan [...] BY: Alexandrea Tomas RN PATIENT NAME: Rocio BrianschDATE: August 18, 2017 : 2:27 PM CSN: [id number] Normal [facility] CBCon 08-18-2017 Erythrocyte distribution width Auto Ratio (RBC) 15.7 % High 11.5-15.0 [facility] Comment on above: Performed By: #### P T, PTT, AMYL, CMP, LIPA, PHOS ####[facility] [place], [place] [phone]#### TRANSF ####[facility] [address] [place], [place] [phone] Erythrocytes (RBC) 3.08 10*6/uL Low 4.20-6.00 [facility] Comment on above: Performed By: #### P T, PTT, AMYL, CMP, LIPA, PHOS ####[place] [address]#### TRANSF ####[place] [phone] Hematocrit (HCT) 26.6 % Low 39.0-51.0 [facility] Comment on above: Performed By: #### P T, PTT, AMYL, CMP, LIPA, PHOS ####[place] [address]#### TRANSF ####[place] [phone] Hemoglobin mass conc (Bld) 8.6 g/dL Low 13.0-17.0 [facility] Comment on above: Performed By: #### P T, PTT, AMYL, CMP, LIPA, PHOS ####[place] [address]#### TRANSF ####[place] [phone] MCH 27.9 pG Normal 26.0-34.0 [facility] Comment on above: Performed By: #### P T, PTT, AMYL, CMP, LIPA, PHOS ####[place] [address]#### TRANSF ####[place] [phone] MCHC mass conc (RBC) 32.3 g/dL Normal 30.5-36.0 [facility] Comment on above: Performed By: #### P T, PTT, AMYL, CMP, LIPA, PHOS ####[place] [address]#### TRANSF ####[phone] MCV 86.4 fL Normal 80.0-100.0 [facility] Comment on above: Performed By: #### P T, PTT, AMYL, CMP, LIPA, PHOS ####[place] [address]#### TRANSF ####[place] [phone] Platelet mean volume (PMV) 10.2 fL Normal 9.0-12.7 [facility] Comment on above: Performed By: #### P T, PTT, AMYL, CMP, LIPA, PHOS ####[place] [address]#### TRANSF ####[place] [phone] Platelets 310 10*3/uL Normal 150-400 [facility] Comment on above: Performed By: #### P T, PTT, AMYL, CMP, LIPA, PHOS ####[place] [address]#### TRANSF ####[place] [phone] WBC (Leukocytes) 4.87 10*3/uL Normal 3.70-11.00 [facility] Comment on above: Performed By: #### P T, PTT, AMYL, CMP, LIPA, PHOS ####[place] [address]#### TRANSF ####[place] [phone] CONSULT PROGon 08-18-2017 CONSULT PROG HNO ID: [id number] thor: Linda (Resident Programs Assistant) BinhaService: GastroenterologyAuthor Type: Nurse PractitionerType: Consult Progress NoteFiled: 08/18/2017 1:23 PMNote Text:CONSULT PROGRESS NOTESERVICE DATE: 08/18/2017SERVICE TIME: 1:20 PMCONSULTING SERVICE: GISubjectiveINTERVAL HPI: No acute events overnight. 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.Current hospital medications:insulin lispro injection (rapid acting) (HumaLOG) SUBCUTANEOUS w MEALSAND HSphenol 1 [place] (CHLORASEPTIC) 1 [place] MUCOUS MEMBRANE (TOPICAL MOUTH ANDTHROAT) q 2 [...] today's visit:Most recent labs and imaging results.Impression/Recommend KrystalDary Jackson is a 62 year old male [...] EGD-assisted duodenal tube placement for feeding-continue to followLinda Avalos CNPBad Axe GastroenterologyThank you for allowing us to participate in the care of this patient.Please call with questions or concerns.SIGNATURE: Linda Avalos CNP PATIENT NAME: Rocio VizcarraTE: August 18, 2017 : 1:20 PM PAGER: [phone] Normal [facility] Comp Metabolic Panelon 08-18 Alanine aminotransferase (ALT) 66 U/L High 5-50 [facility] Comment on above: Performed By: #### P T, PTT, AMYL, CMP, LIPA, PHOS ####[place] [address]#### TRANSF ####[place] [phone] Albumin 2.3 g/dL Low 3.5-5.0 [facility] Comment on above: Performed By: #### P T, PTT, AMYL, CMP, LIPA, PHOS ####[place] [address]#### TRANSF ####[place] [phone] Alkaline phosphatase (ALP) 261 U/L High 40-150 [facility] Comment on above: Performed By: #### P T, PTT, AMYL, CMP, LIPA, PHOS ####[address]#### TRANSF ####[place] [phone] Anion gap 8 mmol/L Low 9-18 [facility] Comment on above: Performed By: #### P T, PTT, AMYL, CMP, LIPA, PHOS ####[place] [address]#### TRANSF ####[place] [address] Aspartate aminotransferase (AST) 32 U/L Normal 7-40 [facility] Comment on above: Performed By: #### P T, PTT, AMYL, CMP, LIPA, PHOS ####[place] [address]#### TRANSF ####[place] [phone] Bilirubin (total) 0.9 mg/dL Normal 0.0-1.5 [facility] [place] Comment on above: Performed By: #### P T, PTT, AMYL, CMP, LIPA, PHOS ####[place] [address]#### TRANSF ####[place] [address] Calcium 7.2 mg/dL Low 8.5-10.5 [facility] Comment on above: Result Comment: Revi ewed Performed By: #### P T, PTT, AMYL, CMP, LIPA, PHOS ####[place] [address]#### TRANSF ####[place] [address] Chloride 112 mmol/L High 98-110 [facility] Comment on above: Performed By: #### P T, PTT, AMYL, CMP, LIPA, PHOS ####[place] [address]#### TRANSF ####[place] [phone] CO2 28 mmol/L Normal 23-32 [facility] Comment on above: Performed By: #### P T, PTT, AMYL, CMP, LIPA, PHOS ####[address]#### TRANSF ####[place] [phone] Creatinine 0.71 mg/dL Normal 0.70-1.40 [facility] Comment on above: Performed By: #### P T, PTT, AMYL, CMP, LIPA, PHOS ####[place] [address]#### TRANSF ####[place] [phone] eGFR (non-black) mL/min/{1.73_m2} Normal >60 [facility] Comment on above: Performed By: #### P T, PTT, AMYL, CMP, LIPA, PHOS ####[place] [address]#### TRANSF ####[place] [phone] Glucose mass conc 160 mg/dL High 65-100 [facility] [place] Comment on above: Performed By: #### P T, PTT, AMYL, CMP, LIPA, PHOS ####[address]#### TRANSF ####[place] [phone] Potassium molar conc 3.9 mmol/L Normal 3.5-5.0 [facility] Comment on above: Result Comment: Revi ewed Performed By: #### P T, PTT, AMYL, CMP, LIPA, PHOS ####[address]#### TRANSF ####[place] [phone] Protein 5.5 g/dL Low 6.0-8.4 [facility] Comment on above: Performed By: #### P T, PTT, AMYL, CMP, LIPA, PHOS ####[place] [address]#### TRANSF ####[place] [phone] Sodium 148 mmol/L High 135-146 [facility] Comment on above: Performed By: #### P T, PTT, AMYL, CMP, LIPA, PHOS ####[place] [address]#### TRANSF ####[place] [phone] Urea nitrogen 13 mg/dL Normal 10-25 [facility] Comment on above: Performed By: #### P T, PTT, AMYL, CMP, LIPA, PHOS ####[place] [address]#### TRANSF ####[place] [phone] Magnesiumon 08-18-2017 Magnesium 2.1 mg/dL Normal 1.7-2.6 [facility] Comment on above: Performed By: #### P T, PTT, AMYL, CMP, LIPA, PHOS ####[address]#### TRANSF ####[place] [phone] NUTRITIONon 08-18-2017 NUTRITION HNO ID: [id number] thor: Alise Segura) BlayneaService: Nutrition TherapyAuthor Type: Registered DietitianType: NutritionFiled: 08/18/2017 1:39 PMNote Text:NUTRITION THERAPY PROGRESS NOTESERVICE DATE: 08/18/2017SERVICE TIME: 1:24 PMRECOMMENDED DIAGNOSIS: SEVERE PROTEIN-CALORIE MALNUTRITION per RegisteredDietitian on 08/14NUTRITION CARE PLANIntervention:Diet NPOAdvance to clearsMonitor and Evaluation:Goal: Meet >75% of estimated needsMonitor fluid/electrolyte balanceMonitor labs, I/Os, vital signs, weightDischarge Nutrition Recommendations:To be year old male with a history notable [...] acting) (HumaLOG) SUBCUTANEOUS w MEALSAND HSphenol 1 [place] (CHLORASEPTIC) 1 [place] MUCOUS MEMBRANE (TOPICAL MOUTH ANDTHROAT) q 2 [...] 08/15/17 0659 08/15/17 0700 - 08/16/17 0659 [id number] - 08/17/17 0659 08/17/17 0700 - 08/18/17 [...] RD, LD PATIENT NAME: Rocio TorresdonnyDATE: August 18, 2017 : 1:24 PM PAGER: For further assistance and weekends please page theGroup Pager -[phone] [facility] PROGRESSon 08-18-2017 PROGRESS HNO ID: [id number] thor: Khadar Guo: General SurgeryAuthor Type: PhysicianType: Progress NotesFiled: 08/18/2017 6:11 PMNote Text:PROGRESS NOTES - SURGICAL SERVICESPATIENT NAME: Rocio TorresdonnyMRN: [id number] HISTORY OF PRESENT ILLNESS:No acute events overnight. [...] surgical care: EVERETT RODRIGUEZ MD (Res)General SurgeryPager: [phone]*On weekends or nights (after 1800) please contact [...] understand.Khadar Duffy MDFebruary 2017 6:11 PM Normal [facility] Phosphoruson 08-18-2017 Phosphate 2.2 mg/dL Low 2.5-4.5 [facility] Comment on above: Performed By: #### P T, PTT, AMYL, CMP, LIPA, PHOS ####[facility] [place], [place] [phone]#### TRANSF ####[facility] [address] [place], [place] [phone] ANES Ila 08-17-2017 ANES POST HNO ID: [id number] thor: Reba Land: AnesthesiologyAuthor Type: AnesthesiologistType: Anesthesia PostOpFiled: 08/17/2017 5:41 PMNote Text:POST ANESTHESIA EVALUATION NOTESERVICE DATE: 08/17/2017SERVICE TIME: 1741DOB: 1955Vitals: 08/17/180719/369736Bpon: 37 ?C (98.6 ?F) 37.1 ?C (98.8 [...] 17, 2017 : 5:41 PM PAGER/CONTACT #: [facility] ANES PREOPon 08-17-2017 ANES PREOP HNO ID: [id number] thor: Reba ValleService: AnesthesiologyAuthor Type: AnesthesiologistType: Anesthesia PreOpFiled: 08/17/2017 3:21 PMNote Text:REGIONAL ANESTHESIOLOGY DAY OF SURGERY NOTEPATIENT NAME: Rocio JacksonMRN: [id number]: 1955Procedure(s) (LRB):ERCP (N/A)Surgeon(s):Srinath NavaEstimated body mass index [...] 0.68 08/17/2017EKG:atrial fibrillation, rate 100sVitals: 810 900 08/17/1813BP: 128/77 141/90 128/84Pulse: 100 109 101Resp: 16Temp: [...] Date- ANGIOPLASTY HX 05/15/2011 2 stents s/p [place];[facility]- CHOLECYSTECTOMY 08/11/2017 [facility]- PICC LINE INSERT/CONSULT 08/16/2017No family history on file.Social History:Social HistorySubstance Use Topics- Smoking status: Former Smoker Types: Cigarettes Quit date: 2010- Smokeless tobacco: Never Used- Alcohol use 1.5 oz/week 1 Cans of Beer (12oz) per week Comment: occasional beerNo current facility-administered medications on file prior to encounter.No current outpatient prescriptions on file prior to encounter.Inpatient medications reviewed in [facility].I have interviewed and examined the patient. I have reviewed the medicalrecord and/or the pre-anesthesia evaluation, pertinent labs, and testresults.Significant changes in the patient's condition since the History andPhysical, not otherwise documented in primary service progress notes: NoThis contains updated information obtained within 48 hours ofSurgery/Procedure.SIGNATUR E: Reba Valle MD PATIENT NAME: Rocio JacksonDATE: August 17, 2017 : 3:20 PM PAGER/CONTACT #: [facility] BRIEF OP NOTon 08-17-2017 BRIEF OP NOT HNO ID: [id number] thor: Srinath Padillae: GastroenterologyAuthor Type: PhysicianType: Brief Op NoteFiled: 08/17/2017 5:07 PMNote Text:Please see procedure report under procedure tabIMP:Duodenal mass, malignant with D2 stenosis involving area of papillaS/P dilation to 15mm balloonRecs:Clear liquid diet, may consider EGD assisted duodenal tube placement forfeedingUnable to cannulate due to sharp angulation, can have PTC with exchange tointernal endoscopically Normal [facility] CASE MGT INIT ASSESon 2017 CASE MGT INIT [facility] HNO ID: [id number] thor: Alexandrea (Rn) MOUSTAPHA Tomaservice: Care ManagementAuthor Type: Registered NurseType: Care Mgt Initial AssessmentFiled: 08/17/2017 2:14 PMNote Text:CARE MANAGEMENT: ASSESSMENT AND DISCHARGE PLANSERVICE DATE: 08/17/2017SERVICE TIME: 2:11 PMPRIMARY CARE PHYSICIAN:No primary care provider on file.Phone: NoneADMISSION STATUS: InpatientPOTENTIAL DISCHARGE PLANSTo Be DeterminedPatient/Representa tive Stated Goals: I am having a test this afternoon.Needs Prior to Discharge: To Be DeterminedHealth Insurance: [facility] Arrangement: HomeLives With: 2 adult childrenFinancial Resources: N/APrimary Contact:Extended Emergency Contact InformationPrimary Emergency Contact: Owen Muller: [place], [place] [address]Shjn Kgborlec: SiblingSupportive: YesOther Important Patient Contacts: NoneCAREGIVER ASSESSMENT:Caregiver [...] days? NoHas the Patient Been in a Residential Facility in the Past 30 days? NoFREEDOM OF CHOICE EXPLAINED:N/RUDY COMMUNICATION:Poncho MAYORGA met with pt at bedside for assessment.His [...] arise.SIGNATURE: Alexandrea Tomas RN PATIENT NAME: Rocio VenturaDATE: August 17, 2017 : 2:07 PM PAGER/CONTACT #: [phone] Normal [facility] CBCon 08-17-2017 Erythrocyte distribution width Auto Ratio (RBC) 15.5 % High 11.5-15.0 [facility] Comment on above: Performed By: #### P T, PTT, AMYL, CMP, LIPA, PHOS ####[place] [address]#### TRANSF ####[place] [phone] Erythrocytes (RBC) 3.18 10*6/uL Low 4.20-6.00 [facility] Comment on above: Performed By: #### P T, PTT, AMYL, CMP, LIPA, PHOS ####[place] [address]#### TRANSF ####[place] [phone] Hematocrit (HCT) 27.4 % Low 39.0-51.0 [facility] Comment on above: Performed By: #### P T, PTT, AMYL, CMP, LIPA, PHOS ####[place] [address]#### TRANSF ####[place] [phone] Hemoglobin mass conc (Bld) 9.1 g/dL Low 13.0-17.0 [facility] Comment on above: Performed By: #### P T, PTT, AMYL, CMP, LIPA, PHOS ####[place] [address]#### TRANSF ####[place] [address] MCH 28.6 pG Normal 26.0-34.0 [facility] Comment on above: Performed By: #### P T, PTT, AMYL, CMP, LIPA, PHOS ####[place] [address]#### TRANSF ####[place] [phone] MCHC mass conc (RBC) 33.2 g/dL Normal 30.5-36.0 [facility] Comment on above: Performed By: #### P T, PTT, AMYL, CMP, LIPA, PHOS ####[place] [address]#### TRANSF ####[place] [address] MCV 86.2 fL Normal 80.0-100.0 [facility] Comment on above: Performed By: #### P T, PTT, AMYL, CMP, LIPA, PHOS ####[place] [address]#### TRANSF ####[place] [phone] Platelet mean volume (PMV) 10.0 fL Normal 9.0-12.7 [facility] Comment on above: Performed By: #### P T, PTT, AMYL, CMP, LIPA, PHOS ####[place] [address]#### TRANSF ####[place] [phone] Platelets 319 10*3/uL Normal 150-400 [facility] Comment on above: Performed By: #### P T, PTT, AMYL, CMP, LIPA, PHOS ####[place] [address] [place], [place] [phone]#### TRANSF ####[facility] [place], [place] [phone] WBC (Leukocytes) 7.02 10*3/uL Normal 3.70-11.00 [facility] Comment on above: Performed By: #### P T, PTT, AMYL, CMP, LIPA, PHOS ####[place] [address] [place], [place] [phone]#### TRANSF ####[address] [phone] CONSULT PROGon 08-17-2017 CONSULT PROG HNO ID: [id number] thor: Jessee Lottervice: Cardiovascular DiseaseAuthor Type: PhysicianType: Consult Progress NoteFiled: 08/18/2017 10:29 PMNote Text:PROGRESS NOTE CARDIOLOGY SERVICESERVICE DATE: August 17, 2017SERVICE TIME: 12:48 PMASSESSMENT/PLANActive Problems:Atrial fibrillation. Persistent AF, ventricular rates +/- 100Heparin infusion is off. Inr was elevated, received vitamin K prior toprocedure. Today 1.0.s/p ERCP yesterdayPlan:Continue metoprolol.Spoke to surgical PROTECTIVE CLOTHING ISSUER Boubacar Espinoza. ->kimberley is for PTHC tomorrow.Will [...] edema.PULSES: Peripheral pulses present.MEDICATIONS:Current Facility-Administered Medications:phenol 1 [place] (CHLORASEPTIC) 1 [place] MUCOUS MEMBRANE (TOPICAL MOUTH ANDTHROAT) q 2 [...] Hour Labs:CBC, Coags, BMP, Mg, PhosRecent Labs 02/20/579073 08/17/1803105WBC 4.87 -- 7.02 11.42* 12.79*HB 8.6* -- [...] 2017 : 12:48 PM PAGER/CONTACT #: Normal [facility] Comp Metabolic Panelon 08-17 Alanine aminotransferase (ALT) 90 U/L High 5-50 [facility] Comment on above: Performed By: #### P T, PTT, AMYL, CMP, LIPA, PHOS ####[facility] [place], [place] [phone]#### TRANSF ####[facility] [place], [place] [phone] Albumin 2.5 g/dL Low 3.5-5.0 [facility] Comment on above: Performed By: #### P T, PTT, AMYL, CMP, LIPA, PHOS ####[place] [address]#### TRANSF ####[place] [phone] Alkaline phosphatase (ALP) 304 U/L High 40-150 [facility] Comment on above: Performed By: #### P T, PTT, AMYL, CMP, LIPA, PHOS ####[place] [address]#### TRANSF ####[place] [phone] Anion gap 12 mmol/L Normal 9-18 [facility] Comment on above: Performed By: #### P T, PTT, AMYL, CMP, LIPA, PHOS ####[place] [address]#### TRANSF ####[place] [address] Aspartate aminotransferase (AST) 36 U/L Normal 7-40 [facility] Comment on above: Performed By: #### P T, PTT, AMYL, CMP, LIPA, PHOS ####[place] [address]#### TRANSF ####[place] [phone] Bilirubin (total) 1.1 mg/dL Normal 0.0-1.5 [facility] [place] Comment on above: Performed By: #### P T, PTT, AMYL, CMP, LIPA, PHOS ####[place] [address]#### TRANSF ####[place] [phone] Calcium 8.2 mg/dL Low 8.5-10.5 [facility] Comment on above: Performed By: #### P T, PTT, AMYL, CMP, LIPA, PHOS ####[place] [address]#### TRANSF ####[place] [phone] Chloride 110 mmol/L Normal 98-110 [facility] Comment on above: Result Comment: Revi ewed Performed By: #### P T, PTT, AMYL, CMP, LIPA, PHOS ####[place] [address]#### TRANSF ####[place] [phone] CO2 26 mmol/L Normal 23-32 [facility] Comment on above: Performed By: #### P T, PTT, AMYL, CMP, LIPA, PHOS ####[place] [address]#### TRANSF ####[place] [phone] Creatinine 0.68 mg/dL Low 0.70-1.40 [facility] Comment on above: Performed By: #### P T, PTT, AMYL, CMP, LIPA, PHOS ####[place] [address]#### TRANSF ####[place] [phone] eGFR (non-black) mL/min/{1.73_m2} Normal >60 [facility] Comment on above: Performed By: #### P T, PTT, AMYL, CMP, LIPA, PHOS ####[place] [address]#### TRANSF ####[place] [phone] Glucose mass conc 158 mg/dL High 65-100 [facility] Comment on above: Performed By: #### P T, PTT, AMYL, CMP, LIPA, PHOS ####[place] [address]#### TRANSF ####[place] [phone] Potassium molar conc 3.2 mmol/L Low 3.5-5.0 [facility] Comment on above: Performed By: #### P T, PTT, AMYL, CMP, LIPA, PHOS ####[place] [address]#### TRANSF ####[place] [phone] Protein 6.1 g/dL Normal 6.0-8.4 [facility] Comment on above: Performed By: #### P T, PTT, AMYL, CMP, LIPA, PHOS ####[place] [address]#### TRANSF ####[place] [phone] Sodium 148 mmol/L High 135-146 [facility] Comment on above: Result Comment: Revi ewed Performed By: #### P T, PTT, AMYL, CMP, LIPA, PHOS ####[place] [address]#### TRANSF ####[place] [phone] Urea nitrogen 14 mg/dL Normal 10-25 [facility] Comment on above: Performed By: #### P T, PTT, AMYL, CMP, LIPA, PHOS ####[place] [address]#### TRANSF ####[place] [phone] Magnesiumon 08-17-2017 Magnesium 2.4 mg/dL Normal 1.7-2.6 [facility] Comment on above: Performed By: #### P T, PTT, AMYL, CMP, LIPA, PHOS ####[facility] [place], [place] [phone]#### TRANSF ####[facility] [address] [place], [place] [phone] NUTRITIONon 08-17-2017 NUTRITION HNO ID: [id number] thor: Alise (Carlos) BarsaService: Nutrition TherapyAuthor Type: Registered DietitianType: NutritionFiled: 08/17/2017 [...] 87 kgResting Metabolic Rate: 1661Estimated kilocalorie needs: 2877-9929 kilocalories determined by 25-28kcal/kgEstimated protein needs:113 - 130 grams determined by 1.3-1.5 g/kg DosingweightEstimated fluid needs: 2200 - 2400 milliliters based on 1 mL per kcalAdmission Weight: 87.4 kg (192 lb 9.6 oz)Current Weight: 87.4 kg (192 lb 9.6 oz)Body mass index is 29.28 kg/(m2). overweightALLERGIESNo Known AllergiesCurrent Facility-Administered Medications:phenol 1 [place] (CHLORASEPTIC) 1 [place] MUCOUS MEMBRANE (TOPICAL MOUTH ANDTHROAT) q 2 [...] 08/14/17 0659 08/14/17 0700 - 08/15/17 0659 - 08/16/17 0659 08/16/17 07 - 08/17/17 0659 Intake (ml) 427 2119 [...] Billing Type: Re-assess/15 min 4 unitsSIGNATURE: Alise Lopez, RD, LD PATIENT NAME: Rocio JacksonDATE: August 17, 2017 : 10:20 AM PAGER: For further assistance and weekends please page theGroup Pager -[phone] [facility] PROGRESSon 08-17-2017 PROGRESS HNO ID: [id number] thor: Khadar Chaneye: General SurgeryAuthor Type: PhysicianType: Progress NotesFiled: 08/17/2017 2:42 PMNote Text:PROGRESS NOTES - SURGICAL SERVICESPATIENT NAME: Rocio JacksonMRN: [id number] HISTORY OF PRESENT ILLNESS:No acute events overnight. [...] non distended.CBC, Coags, BMP, Mg, PhosRecent Labs 7 08/15/1820416WBC 7.02 11.42* 12.79* 16.33*HB 9.1* 9.8* 9.7* [...] improved.Khadar Duffy MDFebruary 2017 2:42 PM Normal [facility] Phosphoruson 08-17-2017 Phosphate 2.3 mg/dL Low 2.5-4.5 [facility] Comment on above: Performed By: #### P T, PTT, AMYL, CMP, LIPA, PHOS ####[facility] [place], [place] [phone]#### TRANSF ####[facility] [place], [place] [phone] Protimeon 08-17-2017 INR Coag RelTime (Bld) 1.0 {INR} Normal 0.9-1.3 [facility] Comment on above: Result Comment: Tayler min K Antagonist (VKA) Therapeutic Range: INR 2 to 3 (Target INR of 2.5)Note: For patients treated with VKA drugs, such as warfarin, the [place] [employer] 2012 Guideline recommends [...] of 3).Keegan GH, et al. Chest 2012, 141:7S-47SNishneto RA, et al. JAC 2017, 70: 252-289 Performed By: #### P T, PTT, AMYL, CMP, LIPA, PHOS ####[place] [address] [place], [place] [phone]#### TRANSF ####[place] [address] [place], [place] [phone] PT Sec 10.6 sec Normal 9.7-13.0 [facility] Comment on above: Performed By: #### P T, PTT, AMYL, CMP, LIPA, PHOS ####[address] [phone]#### TRANSF ####[place] [address] [place], [place] [phone] XR ERCP READ ONLYon 08-17-19 18 XR [...] Kerma: 134.0 mGyDose Area Product (DAP): 0.0 mGy*vtO4Trqdqh time: 6:57 min:secRESULT: Images demonstrate an endoscope with contrast administration. A small amount of contrast is seen. The biliary system is not well opacified.IMPRESSION: Fluoroscopic assistance for ERCP procedureTranscriptionist: NII Transcribe Date/Time: Aug 18 2017 8:33ADictated by : REJI PATEL MDThis examination was interpreted and the report reviewed and electronically signed by: REJI PATEL MD on Aug 18 2017 8:34AM [id number] Normal [facility] CBCon 08-16-2017 Erythrocyte distribution width Auto Ratio (RBC) 15.4 % High 11.5-15.0 [facility] Comment on above: Performed By: #### P T, PTT, AMYL, CMP, LIPA, PHOS ####[place] [phone]#### TRANSF ####[phone] Erythrocytes (RBC) 3.49 10*6/uL Low 4.20-6.00 [facility] Comment on above: Performed By: #### P T, PTT, AMYL, CMP, LIPA, PHOS ####[phone]#### TRANSF ####[place] [phone] Hematocrit (HCT) 29.9 % Low 39.0-51.0 [facility] Comment on above: Performed By: #### P T, PTT, AMYL, CMP, LIPA, PHOS ####[place] [phone]#### TRANSF ####[place] [phone] Hemoglobin mass conc (Bld) 9.8 g/dL Low 13.0-17.0 [facility] Comment on above: Performed By: #### P T, PTT, AMYL, CMP, LIPA, PHOS ####[place] [address]#### TRANSF ####[place] [address] MCH 28.1 pG Normal 26.0-34.0 [facility] Comment on above: Performed By: #### P T, PTT, AMYL, CMP, LIPA, PHOS ####[place] [address]#### TRANSF ####[place] [address] MCHC mass conc (RBC) 32.8 g/dL Normal 30.5-36.0 [facility] Comment on above: Performed By: #### P T, PTT, AMYL, CMP, LIPA, PHOS ####[place] [address]#### TRANSF ####[place] [phone] MCV 85.7 fL Normal 80.0-100.0 [facility] Comment on above: Performed By: #### P T, PTT, AMYL, CMP, LIPA, PHOS ####[place] [address]#### TRANSF ####[place] [address] Platelet mean volume (PMV) 10.9 fL Normal 9.0-12.7 [facility] Comment on above: Performed By: #### P T, PTT, AMYL, CMP, LIPA, PHOS ####[address] [phone]#### TRANSF ####[address] [phone] Platelets 335 10*3/uL Normal 150-400 [facility] Comment on above: Performed By: #### P T, PTT, AMYL, CMP, LIPA, PHOS ####[place] [phone]#### TRANSF ####[address] [phone] WBC (Leukocytes) 11.42 10*3/uL High 3.70-11.00 [facility] Comment on above: Performed By: #### P T, PTT, AMYL, CMP, LIPA, PHOS ####[phone]#### TRANSF ####[address] [phone] CONSULTon 08-16-2017 CONSULT HNO ID: [id number] thor: Jessee Lottervice: Cardiovascular DiseaseAuthor Type: PhysicianType: [...] 12.5 BIDPlan:Switch to metoprolol 25 TID.Monitor.CAD. Remote DE, PCI in 2013.No angina.Duodenal mass and obstructive jaundices/p perc drain placement.-plan is for ERCP with possible duodenal stent placement tomorrow.[facility] STAFF PHYSICIAN NOTE OF PERSONAL INVOLVEMENT IN [...] management of the patient's care.STAFF PHYSICIAN: Jessee Mayorga MDDATE OF SERVICE: August 16, 2017TIME OF SERVICE: 4:36 PMCSHELBY [facility]ORIAL [facility] COMPLAINT: abdominal painRocio Jackson is a 62 year old male, he lives in [facility]. 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 Followed by general surgery.s/p [...] Date- ANGIOPLASTY HX 05/15/2011 2 stents s/p DE;[facility]- CHOLECYSTECTOMY 08/11/2017 [facility]- PICC LINE INSERT/CONSULT 08/16/2017Past Family History:non contributorySocial [...] pulses present.CBC, Coags, BMP, Mg, PhosRecent Labs 08/15/182008/14/179939WBC 11.42* 12.79* 16.33* -- -- 11.53*HB 9.8* [...] EKGTelemetrySIGNATURE: Sabrina Arango CNP PATIENT NAME: Rocio VizcarraTE: August 16, 2017 : 3:56 PM PAGER/CONTACT #: Normal [facility] Magnesiumon 08-16-2017 Magnesium 2.3 mg/dL Normal 1.7-2.6 [facility] Comment on above: Performed By: #### P T, PTT, AMYL, CMP, LIPA, PHOS ####[facility] [place], [place] [phone]#### TRANSF ####[facility] [address] [place], [place] [phone] NURSING PROGon 08-16-2017 NURSING PROG HNO ID: [id number] thor: Nolvia KenRn) Genevieve, MOUSTAPHAervice: PICC TeamAuthor Type: Registered NurseType: Nursing Progress NoteFiled: 08/16/2017 8:05 AMNote Text:PICC/VASCULAR ACCESS PROGRESS NOTESERVICE DATE: 08/16/2017SERVICE TIME: 8:00 amPICC line ordered, heparin gtt currently on hold, plan for patient toreceive TPN, Double lumen chloraguard PICC recommended. Will continue tofollow.SIGNATURE: Nolvia Vallejo RN PATIENT NAME: Rocio JacksonDATE: August 16, 2017 : 8:03 AM PAGER/CONTACT #: [phone] Normal [facility] NURSING PROG HNO ID: [id number] thor: Shavonne (Rn) [place], RNService: NursingAuthor Type: Registered NurseType: Nursing Progress NoteFiled: 08/16/2017 6:50 PMNote Text: Nursing Progress NotePatient Name: Rocio Boudreaux: [id number] Location: [place] [address]/[id number] ____Daily Note:0730: SROC alpha paged re: PT/INR [...] upper ABD pain. Lap sites x 3 ADELA with skin glue, no drainage.1245: Dr Duffy rounding (covering for Dr Jolley) and discussed RNconcerns for INR 2.0 with heparin gtt, and vitamin K order. Per Dr Duffy,stop heparin gtt and admin vitamin K. Spoke with SOCIAL WORKER for GI service,repeat PT/INR ordered for 1200 tomorrow 08/17 prior to ERCP scheduled [id number], and if heparin gtt restarted prior to [...] Pt assisted up to chair, bathprovided. Dr Tierra max, updated him on POC, states will possiblyrestart heparin gtt tomorrow after procedure.1700: Pt medicated with metoprolol 25 mg PO per new order, HR [id number]'s. SROC paged for chlorasetic spray and throat lozenge for pt c/othroat irritation from NGT.1800: Blood glucose 139, no SSI coverage required. Safety maintained.Pt resting in bed.This note was completed by: Shavonne Mays RN [facility] NURSING PROG HNO ID: [id number] thor: Deneen (Rn) Melanie, RNService: (none)Author Type: Registered NurseType: Nursing Progress NoteFiled: 08/16/2017 4:44 AMNote Text: Nursing Progress NotePatient Name: Rocio JacksonMRN: [id number] Location: [place] [address]/[id number] ____Daily Note:Late entry 08/15 Labs drawn for start of heparin drip. INR2.0 Order to notify team when INR equal to or greater than 2.0.0350: Team notified that INR 2.0. Order to hold heparin drip until morninglabs back with INR results. Will continue to monitor.0428: Text page to surgery for bladder scan of 665 ml and change in NGcolor from bile to brownish [id number]: SROC up to see and assess pt. Continue to monitor bladder as pt ishaving no symptoms of discomfort at this time. Wait to start heparin dripuntil Am labs. Continue to monitor NG output.This note was completed by: Deneen Navarro RN [facility] PLAN OF CAREon 08-16-2017 PLAN OF CARE HNO ID: [id number] thor: Gissell Ritterervice: GastroenterologyAuthor Type: Nurse PractitionerType: Plan of CareFiled: 08/16/2017 12:58 PMNote Text:In anticipation of ERCP tomorrow:INR notedPatient will need Vitamin K today and stat INR one hour prior to procedure(ordered)Stop Heparin drip 6 hrs prior to procedure as per surgeryDiscussed with Dr. Candelaria you for allowing us to participate in the care of Mr. Jackson. Pleasecall with any questions or concerns.Mónica Clarkrthstheron GastroenterologyOffice: Cell: [facility] PROCEDUREon 08-16-2017 PROCEDURE HNO ID: [id number] thor: Luis Shaffer, RNService: PICC TeamAuthor Type: Registered NurseType: ProceduresFiled: [...] Discussion: Shayan Shaffer RNCATHETER PLACEMENTBrand: Charan Lot: [id number] of Lumens: 2Type of PICC: Power Injectable [...] NoneCOMPLICATIONS: NonePatient Education Materials: Placed in chartThe [facility] Central Line Insertion checklist, attached to theCentral Line-Associated Bloodstream Infection Prevention Policy, wasutilized during this procedure.QUESTIONS or PROBLEMS: Page [phone] weekendSIGNATURE: Luis Shaffer RN PATIENT NAME: Rcoio FrischDATE: August 16, 2017 : 8:35 AM PAGER/CONTACT PHONE: [facility] PROGRESSon 08-16-2017 PROGRESS HNO ID: [id number] thor: Lourdes Earle: GastroenterologyAuthor Type: PhysicianType: Progress NotesFiled: 08/16/2017 6:45 PMNote Text:[facility] Progress NoteSERVICE DATE: August 16, 2017SUBJECTIVENo abd pain, n/v, f/c. Afib overnight. Passing gas. No BM.OBJECTIVEMEDICATIONSCurre hospital medications:potassium phosphate 30 mmol in NaCl [...] 0.2 mg INTRAVENOUS q 2 H PRNPE 427508/16/1807BP: 108/64 117/60 113/66Pulse: 92 (!) 128 92 96Resp: 18 17 16Temp: 36.9 ?C (98.4 ?F) 36.7 ?C (98 ?F) 37.4 ?C (99.3 ?F)TempSrc: Oral Oral OralSpO2: 92% 92% 95%Weight:Height:Body mass index is 29.28 kg/(m2).GENERAL: NAD, YGAo7EAVCI: PERRLA, EOMI, normal OPCV: RRR, normal S1, [...] with any further questions or concerns.Lourdes Ferrari MDBad Axe [facility]astro[facility]#: [phone]: Loureds Ferrari MD PATIENT NAME: Rocio JacksonDATE: August 16, 2017 : 2:42 PM PAGER: [phone] [facility] PROGRESS HNO ID: [id number] thor: Khadar Chaneye: General SurgeryAuthor Type: PhysicianType: Progress NotesFiled: 08/16/2017 1:47 PMNote Text: SURGERY INPATIENT PROGRESS NOTESName: Rociomarisa JacksonMRN: [id number] and Plan:62 year old male with near-obstructing [...] lb 9.6 oz) SpO2 92% BMI 29.28 kg/d7Onqmiy/Output Summary (Last 24 hours) at 08/16/17 0835Last [...] results tomorrow.Khadar Duffy MDFebruary 2017 1:47 PM [facility] PT EDon 08-16-2017 PT ED HNO ID: [id number] thor: Luis (Rn) Edmund, RNService: PICC TeamAuthor Type: Registered NurseType: Patient EducationFiled: 08/16/2017 8:34 AMNote Text:PATIENT EDUCATION TOPIC: PROCEDURE / SURGERY: Procedure/Surgery: PICCinsertion under US guidancePATIENT NAME: Rocio JacksonN: [id number] LOCATION: [place] [address]/[id number] S TO LEARNCOGNITIVE ABILITY: Alert and orientedMOTIVATION TO LEARN: EagerInterestedFAMILY SUPPORT: High - Very involved in pt careINSTRUCTION PROVIDED TO: Patient and Family memberPATIENT LEARNS BEST BY: Individual InstructionVerbal InstructionFACTORS AFFECTING LEARNING: NonePHYSICAL LIMITATIONS AFFECTING LEARNING: NoneLEARNING RESPONSEDIAGNOSIS: ADULT: Duodenal obstructionPATIENT/FAMILY RESPONSE: Verbalizes understanding of: JPRO-EVBXKHRNLLFLLFEEQIROG-O orrect actions to take to reduce post procedurecomplicationsPRE-[place] OCEDURE INSTRUCTIONS-Correct action to take to follow pre-procedureinstructionsMET HOD OF INSTRUCTION: Individual instructionVerbal instructionFOLLOW-UP PLAN: Patient instructed to call with any further issuesFollow-up with Primary CareINSTRUCTIONAL AIDS USED: NASUPPLEMENTAL MATERIAL PROVIDED TO PATIENT: NoneREFERRAL (RECOMMENDATION): NoneElectronically Signed By: Luis Shaffer RN [facility] Phosphoruson 08-16-2017 Phosphate 2.1 mg/dL Low 2.5-4.5 [facility] Comment on above: Performed By: #### P T, PTT, AMYL, CMP, LIPA, PHOS ####[place] [phone]#### TRANSF ####[address] [phone] Protimeon 08-16-2017 INR Coag RelTime (Bld) 2.0 {INR} High 0.9-1.3 [facility] Comment on above: Result Comment: Tayler min K Antagonist (VKA) Therapeutic Range: INR 2 to 3 (Target INR of 2.5)Note: For patients treated with VKA drugs, such as warfarin, the [place] [employer] 2012 Guideline recommends [...] 3).Keegan GH, et al. Chest 2012, 141:7S-47SFelice CENTENO, et al. [facility] 2017, 70: 252-289 Performed By: #### P T, PTT, AMYL, CMP, LIPA, PHOS ####[address] [phone]#### TRANSF ####[place] [address] [place], [place] [phone] PT Sec 19.5 sec High 9.7-13.0 [facility] Comment on above: Performed By: #### P T, PTT, AMYL, CMP, LIPA, PHOS ####[address] [phone]#### TRANSF ####[address] [place] [phone] XR CHEST 1V PORT POST PICC - [...] place; Check tip position following PICC placement.M: [id number]: 08/13/2017RESULT:1. Lines / Tubes: a. Interval placement [...] ease, it is acceptable for venous access use.Railroad Brake Operator: NII Transcribe Date/Time: Aug 16 2017 10:15ADictated by : AURORA ROMERO MDThis examination was interpreted and the report reviewed and electronically signed by: AURORA ROMERO MD on Aug 16 2017 10:16AM [id number] [facility] ALLIED HEALTHon 08-15-2017 ALLIED HEALTH HNO ID: [id number] thor: Jennifer Win CtService: (none)Author Type: (none)Type: Allied HealthFiled: 08/15/2017 2:49 PMNote Text: Radiology Service Progress NotePATIENT NAME: Rocio JacksonMRN: [id number] OF SERVICE: August 15, 2017TIME: 2:48 PMPATIENT IDENTITY VERIFICATION COMPLETED USING TWO (2) METHODS: Patientconfirmed name verbally and ID band matches..PATIENT GENDER DATA: MalePATIENT RELEVANT IMPLANT DATA REVIEWED: Not ApplicableRADIOLOGY DEPARTMENT: CT; Exam(s) Completed: ABSCESS DRAINAGEPERIPHERAL IV DATA: Not applicableSIGNED BY: Jennifer Win [facility] 2017 2:48 PM [facility] BRIEF OP NOTon 08-15-2017 BRIEF OP NOT HNO ID: [id number] thor: Reji PatelSerkalliee: RadiologyAuthor Type: PhysicianType: Brief Op NoteFiled: 08/15/2017 [...] NoneSIGNATURE: Reji Patel MD PATIENT NAME: Rocio VizcarraTE: August 15, 2017 : 2:45 PM PAGER/CONTACT #: [phone] [facility] Blood Cultureon 08-15-2017 Bacteria culture Sp. Request/Comment: - The blood culture bottles are underfilled. Adding volume lower or higher than the 8 to 10 mL per bottle, which is the manufacturers recommended volume, may adversely affect the recovery and/or detection of organisms. 10.9MLCulture Result - No growth 5 days [facility] Comment on above: Performed By: #### P T, PTT, AMYL, CMP, LIPA, PHOS ####[facility] [place] [phone]#### TRANSF ####[address] [phone] Bacteria culture Culture Result - No growth 5 days [facility] Comment on above: Performed By: #### P T, PTT, AMYL, CMP, LIPA, PHOS ####[place] [phone]#### TRANSF ####[phone] CBCon 08-15-2017 Erythrocyte distribution width Auto Ratio (RBC) 15.2 % High 11.5-15.0 [facility] Comment on above: Performed By: #### P T, PTT, AMYL, CMP, LIPA, PHOS ####[place] [address]#### TRANSF ####[place] [phone] Erythrocytes (RBC) 3.46 10*6/uL Low 4.20-6.00 [facility] Comment on above: Performed By: #### P T, PTT, AMYL, CMP, LIPA, PHOS ####[place] [address]#### TRANSF ####[place] [phone] Hematocrit (HCT) 29.3 % Low 39.0-51.0 [facility] Comment on above: Performed By: #### P T, PTT, AMYL, CMP, LIPA, PHOS ####[place] [address]#### TRANSF ####[place] [phone] Hemoglobin mass conc (Bld) 9.7 g/dL Low 13.0-17.0 [facility] Comment on above: Performed By: #### P T, PTT, AMYL, CMP, LIPA, PHOS ####[place] [address]#### TRANSF ####[place] [phone] MCH 28.0 pG Normal 26.0-34.0 [facility] Comment on above: Performed By: #### P T, PTT, AMYL, CMP, LIPA, PHOS ####[place] [address]#### TRANSF ####[place] [phone] MCHC mass conc (RBC) 33.1 g/dL Normal 30.5-36.0 [facility] Comment on above: Performed By: #### P T, PTT, AMYL, CMP, LIPA, PHOS ####[place] [address]#### TRANSF ####[place] [phone] MCV 84.7 fL Normal 80.0-100.0 [facility] Comment on above: Performed By: #### P T, PTT, AMYL, CMP, LIPA, PHOS ####[place] [address]#### TRANSF ####[place] [phone] Platelet mean volume (PMV) 10.2 fL Normal 9.0-12.7 [facility] Comment on above: Performed By: #### P T, PTT, AMYL, CMP, LIPA, PHOS ####[place] [address]#### TRANSF ####[place] [phone] Platelets 302 10*3/uL Normal 150-400 [facility] Comment on above: Performed By: #### P T, PTT, AMYL, CMP, LIPA, PHOS ####[place] [address]#### TRANSF ####[place] [phone] WBC (Leukocytes) 12.79 10*3/uL High 3.70-11.00 [facility] Comment on above: Performed By: #### P T, PTT, AMYL, CMP, LIPA, PHOS ####[place] [address]#### TRANSF ####[place] [phone] Erythrocyte distribution width Auto Ratio (RBC) 15.3 % High 11.5-15.0 [facility] Comment on above: Performed By: #### P T, PTT, AMYL, CMP, LIPA, PHOS ####[place] [address]#### TRANSF ####[place] [phone] Erythrocytes (RBC) 3.99 10*6/uL Low 4.20-6.00 [facility] Comment on above: Performed By: #### P T, PTT, AMYL, CMP, LIPA, PHOS ####[place] [address]#### TRANSF ####[place] [address] Hematocrit (HCT) 33.4 % Low 39.0-51.0 [facility] Comment on above: Performed By: #### P T, PTT, AMYL, CMP, LIPA, PHOS ####[place] [address]#### TRANSF ####[place] [phone] Hemoglobin mass conc (Bld) 11.1 g/dL Low 13.0-17.0 [facility] Comment on above: Performed By: #### P T, PTT, AMYL, CMP, LIPA, PHOS ####[place] [address]#### TRANSF ####[place] [phone] MCH 27.8 pG Normal 26.0-34.0 [facility] Comment on above: Performed By: #### P T, PTT, AMYL, CMP, LIPA, PHOS ####[place] [address]#### TRANSF ####[place] [phone] MCHC mass conc (RBC) 33.2 g/dL Normal 30.5-36.0 [facility] Comment on above: Performed By: #### P T, PTT, AMYL, CMP, LIPA, PHOS ####[place] [address]#### TRANSF ####[place] [phone] MCV 83.7 fL Normal 80.0-100.0 [facility] Comment on above: Performed By: #### P T, PTT, AMYL, CMP, LIPA, PHOS ####[place] [address]#### TRANSF ####[place] [phone] Platelet mean volume (PMV) 11.9 fL Normal 9.0-12.7 [facility] Comment on above: Performed By: #### P T, PTT, AMYL, CMP, LIPA, PHOS ####[place] [address]#### TRANSF ####[place] [phone] Platelets 328 10*3/uL Normal 150-400 [facility] Comment on above: Performed By: #### P T, PTT, AMYL, CMP, LIPA, PHOS ####[place] [address]#### TRANSF ####[facility] [place], [place] [phone] WBC (Leukocytes) 16.33 10*3/uL High 3.70-11.00 [facility] Comment on above: Performed By: #### P T, PTT, AMYL, CMP, LIPA, PHOS ####[facility] [place], [place] [phone]#### TRANSF ####[facility] [address] [place], [place] [phone] CONSULTon 08-15-2017 CONSULT HNO ID: [id number] thor: Gissell Michael) DylanrekService: GastroenterologyAuthopatrice Type: Nurse PractitionerType: ConsultsFiled: 08/15/2017 4:44 PMNote Text: -Attestation signed by Lourdes Ferrari at 08/17/2017 10:00 AMATTENDING NOTE:?I performed a history and physical examination of the patient and supervisedand discussed plan of care and management with the PA/PROTECTIVE CLOTHING ISSUER. I reviewed thePA/PROTECTIVE CLOTHING ISSUER's note and agree with the documented findings and plan of care.? ?Thank you for allowing us to participate in the care of this patient. Pleasecall with any questions or concerns.Munir TamayoMayo Clinic Health System GastroenterologyPadylan [phone] --------CONSULT: [facility] Gastroenterology SERVICESERVICE DATE: 08/15/2017SERVICE TIME: 9:04 AMREASON FOR CONSULT: ERCPREQUESTING PHYSICIAN: Dr. Michael [facility] CARE PHYSICIAN: No primary care provider on file.SubjectiveMr. Jackson is a 62 year old male with PMH of CAD s/p stent x2, type 2 DMon metformin, HTN, glaucoma, PSH of cholecystectomy (08/11/2017, ERCP08/13/17) who was transferred from OSH for management of partial duodenalobstruction. 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 [facility] 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 [facility] for further evaluationand treatment. Following admission [...] Date- ANGIOPLASTY HX 05/15/2011 2 stents s/p [place];[facility]- CHOLECYSTECTOMY 08/11/2017 [facility] family history on file.Social HistorySubstance Use Topics- [...] by mouth once daily. Disp: Rfl:08/10/2017 at 0900[facility] medications:oxyCODONE IR 5 mg tab(s) (ROXICODONE) 5 [...] control as per primary service-Maintain NPO-IV Cipro diversional therapist's assistant for ERCP (ordered)D/w Dr. Nava and Dr. AquinoattSIGNATURE: Gissell Serrato CNP PATIENT NAME: Rocio FrischDATE: August 15, 2017 : 9:04 AM PAGER: [phone] [facility] [address] DRN PLACE PERIT/RETROP FL BIon [...] with administration of agent, ends when continuous [id number] time ends): 14 minutese) Patient monitoring: Continuous ECG, pulse oximetry and cardiopulmonary monitoring was performed during the entire procedure by both the physician and nurse.-I, the procedural radiologist personally supervised and directed the independent trained observer who assisted in monitoring the patient's level of consciousness and physiological status throughout the procedure.Catheter/ needle used: 5 Turkmen Yueh, 8 Turkmen pigtail.Imaging guidance with images saved into the permanent archive: CTTechnique: Using CT guidance a 5 Turkmen catheter was inserted into the abscess collection in the gastrohepatic location. Serial dilatation was performed over a wire and an 8 Turkmen pigtail catheter was inserted into the abscess collection. Approximately 110 cc of dark red serous fluid was obtained.Sample obtained: As aboveEstimated blood loss: Less than 1 ccComplications: NoneIMPRESSION: CT-guided abscess drainage of gastrohepatic fluid collection. Nearly the entire fluid collection was drained during this procedure. An 8 Turkmen pigtail catheter remains in the location of the fluid collection and was connected to an accordion drainage bag. Patient was sent back to the room with the catheter.Railroad Brake Operator: NII Transcribe Date/Time: Aug 15 2017 5:47PDictated by : REJI PATEL MDThis examination was interpreted and the report reviewed and electronically signed by: REJI PATEL MD on Aug 15 2017 6:07PM [id number] Normal [facility] Comp Metabolic Panelon 08-15 Alanine aminotransferase (ALT) 205 U/L High 5-50 [facility] Comment on above: Performed By: #### P T, PTT, AMYL, CMP, LIPA, PHOS ####[place] [address]#### TRANSF ####[place] [phone] Albumin 2.5 g/dL Low 3.5-5.0 [facility] Comment on above: Performed By: #### P T, PTT, AMYL, CMP, LIPA, PHOS ####[place] [address]#### TRANSF ####[place] [phone] Alkaline phosphatase (ALP) 515 U/L High 40-150 [facility] Comment on above: Performed By: #### P T, PTT, AMYL, CMP, LIPA, PHOS ####[place] [address]#### TRANSF ####[place] [address]657[address] Anion gap 14 mmol/L Normal 9-18 [facility] Comment on above: Performed By: #### P T, PTT, AMYL, CMP, LIPA, PHOS ####[place] [address]#### TRANSF ####[place] [address] Aspartate aminotransferase (AST) 74 U/L High 7-40 [facility] Comment on above: Performed By: #### P T, PTT, AMYL, CMP, LIPA, PHOS ####[place] [address]#### TRANSF ####[place] [phone] Bilirubin (total) 1.7 mg/dL High 0.0-1.5 [facility] [place] Comment on above: Performed By: #### P T, PTT, AMYL, CMP, LIPA, PHOS ####[place] [address]#### TRANSF ####[place] [phone] Calcium 8.7 mg/dL Normal 8.5-10.5 [facility] Comment on above: Performed By: #### P T, PTT, AMYL, CMP, LIPA, PHOS ####[place] [address]#### TRANSF ####[place] [phone] Chloride 98 mmol/L Normal 98-110 [facility] Comment on above: Performed By: #### P T, PTT, AMYL, CMP, LIPA, PHOS ####[place] [address]#### TRANSF ####[place] [phone] CO2 24 mmol/L Normal 23-32 [facility] Comment on above: Performed By: #### P T, PTT, AMYL, CMP, LIPA, PHOS ####[place] [address]#### TRANSF ####[place] [phone] Creatinine 0.62 mg/dL Low 0.70-1.40 [facility] Comment on above: Performed By: #### P T, PTT, AMYL, CMP, LIPA, PHOS ####[place] [address]1826[address]#### TRANSF ####[place] [phone] eGFR (non-black) mL/min/{1.73_m2} Normal >60 [facility] Comment on above: Performed By: #### P T, PTT, AMYL, CMP, LIPA, PHOS ####[place] [phone]#### TRANSF ####[place] [phone] Glucose mass conc 151 mg/dL High 65-100 [facility] [place] Comment on above: Performed By: #### P T, PTT, AMYL, CMP, LIPA, PHOS ####[place] [phone]#### TRANSF ####[place] [phone] Potassium molar conc 3.5 mmol/L Normal 3.5-5.0 [facility] Comment on above: Performed By: #### P T, PTT, AMYL, CMP, LIPA, PHOS ####[place] [phone]#### TRANSF ####[place] [phone] Protein 6.4 g/dL Normal 6.0-8.4 [facility] Comment on above: Performed By: #### P T, PTT, AMYL, CMP, LIPA, PHOS ####[place] [phone]#### TRANSF ####[place] [phone] Sodium 136 mmol/L Normal 135-146 [facility] Comment on above: Performed By: #### P T, PTT, AMYL, CMP, LIPA, PHOS ####[place] [address]#### TRANSF ####[place] [phone] Urea nitrogen 12 mg/dL Normal 10-25 [facility] Comment on above: Performed By: #### P T, PTT, AMYL, CMP, LIPA, PHOS ####[place] [phone]#### TRANSF ####[place] [phone] HISTORY PHYSICALon 8 HISTORY PHYSICAL HNO ID: [id number] thor: Reji Guillen: RadiologyAuthor Type: PhysicianType: HANDPFiled: 08/15/2017 2:07 PMNote [...] Date- ANGIOPLASTY HX 05/15/2011 2 stents s/p [place];[facility]- [facility]2017 [facility] as of 08/13/17 2301Medication Sig Last Dose Takingaspirin, enteric coated (ECOTRIN LOW STRENGTH) 81 mg EC tablet Take 162 mgby mouth once daily. Past Week at Unknown time Yeslisinopril 2.5 mg tablet Take 2.5 mg by mouth once daily. 08/11/2017 [id number] Yesatorvastatin (LIPITOR) 40 mg tablet Take 40 [...] ModerateSIGNATURE: Reji Patel MD PATIENT NAME: Rocio FrischDATE: August 15, 2017 : 2:05 PM PAGER: [phone] Normal [facility] Magnesiumon 08-15-2017 Magnesium 2.0 mg/dL Normal 1.7-2.6 [facility] Comment on above: Performed By: #### P T, PTT, AMYL, CMP, LIPA, PHOS ####[facility] [place], [place] [phone]#### TRANSF ####[facility] [place], [place] [phone] NURSING PROGon 08-15-2017 NURSING PROG HNO ID: [id number] thor: Saima Kramer (Rn) Beskid, RNService: (none)Author Type: Registered NurseType: Nursing Progress NoteFiled: 08/15/2017 6:48 PMNote Text: Nursing Progress NotePatient Name: Rocio Boudreaux: [id number] Location: [place] [address]/[id number] ____Daily Note:Pt phos level 2.2 - text [...] heart rate elevated. Text page to SROC stormy aware.1715: SROC at bedside to assess patient. [...] between 120-140. Text page to gen surg [place] aware. Pt asymptomatic at this time. Will cont to monitor.1630: NS bolus ordered. Made resident aware of pt's productive cough.Safety maintained.This note was completed by: Saima Richardson, RN [facility] NUTRITIONon 08-15-2017 NUTRITION HNO ID: [id number] thor: Alana Greenwood (Carlos) Andres: Nutrition TherapyAuthor Type: Registered DietitianType: NutritionFiled: 08/15/2017 1:17 PMNote Text:NUTRITION SUPPORT TEAMTOPIC: NUTRITION SUPPORT PROGRESS NOTEPATIENT NAME: Rocio Boudreaux: [id number] OF : 1955DATE: 08/15/2017Nutritional Status: SEVERE PROTEIN CALORIE MALNUTRITION in the context ofacute Illness or Injury based on weight loss, subcutaneous fat loss andmuscle lossConsult for Nutrient IntakeInterval History: per surgeryMr. Jackson is a 62 year old male [...] 87 kgResting Metabolic Rate: 1661Estimated kilocalorie needs: 2522-8861 kilocalories determined by 25-28kcal/kgEstimated protein needs:113 - [...] lb 9.6 oz) SpO2 92% BMI 29.28 kg/y7[place] Weight: Weight: 87.4 kg (192 lb 9.6 [...] -- --CA 8.7 -- 8.5 8.9Recent Labs [id number] 7*Accuchecks:Glucose, Point of Care (mg/dL)Date Value08/15/2017 141 (A)08/15/2017 154 (A)08/15/2017 138 (A)08/14/2017 148 (A)Alana Barber RD, LDPager: For further assistance and weekends please page the Group Ruayu-[phone] :3 [facility] PROGRESSon 08-15-2017 PROGRESS HNO ID: [id number] thor: Kael (Georges) ASHLEY Hernandezervice: General SurgeryAuthor Type: ResidentType: Progress NotesFiled: 08/15/2017 7:29 PMNote Text:GENERAL SURGERY PROGRESS NOTENAME: Rocio VenturaMRN: [id number] 2017 7:20 PMASSESSMENT AND PLAN:Mr. Jackson is [...] for TPN- Dispo: ARLINE HERNANDEZ MDGeneral SurgeryPager: [phone]*On weekends or nights (after 1800) please contact the surgery on callpager.*SUBJECTIVE: No acute issues overnight and during the day. Restingcomfortably in bed.OBJECTIVE:BP 109/58 Pulse 78 Temp 36.3 ?C (97.4 ?F) (Oral) Resp 18 Ht 172.7cm (5' 8 ) Wt 87.4 kg (192 lb 9.6 oz) SpO2 94% BMI 29.28 kg/h7GLMFGLF: alert, NADLUNGS: breathing comfortablyCARDIAC: irregularABDOMEN: mildly TTP in upper abd, mildly distended, softEXTREMITIES: warm and well perfusedDRAINS/LINES: bilious drainage from JPDate 08/14/17 1500 - 08/15/17 0659 08/15/17 0700 - 08/16/17 0659Shift 2716-9126 4275-1133 24 Hour Total 5168-6442 5049-2727 8161-5297 24Hour TotalINTAKE PO 60 60 30 30 PO 60 60 30 30 IV 2018 2018 269 595 5539 NS 0.9% 2018 2018 817 561 7574 Irrigants 20 40 30 30 Irrigant/Flush Amount In (GI Feed/Drain 08/14/17 0109 Nasogastric RightNaris 18 Fr) 20 40 30 30 Shift Total 2099 2119 744 665 1409OUTPUT Urine 575 1125 425 425 Void (ml) 575 1125 425 425 Tubes 295 019 2184 330 445 775 Drain/Tube Output (Drain/Tube Admission to [facility] RightLower Quadrant Abdomen) 260 30 370 140 70 210 Drain/Tube Output (Drain/Tube 08/15/17 1530 Assessment Right UpperAbdomen) 275 275 Output (GI Feed/Drain 08/14/17 0109 Nasogastric Right Naris 18 Fr) 964156 7301 190 100 290 # of BMs Number [...] -- 395*ALT 205* -- 370* -- 418* [facility] PROGRESS HNO ID: [id number] thor: Khadar DuffyService: General SurgeryAuthor Type: PhysicianType: [...] course.Khadar Duffy MDFebruary 2017 5:53 PM(late entry) [facility] PT EDon 08-15-2017 PT ED HNO ID: [id number] thor: Dhara (Rn) MOUSTAPHA Riveroervice: RadiologyAuthor Type: [...] instructionPATIENT / FAMILY RESPONSE: Verbalizes understanding of: [id number]-P orrect actions to take to reduce post procedurecomplicationsPRE-[place] OCEDURE INSTRUCTIONS-Correct action to take to follow pre-procedureinstructionsFOL LOW-UP PLAN: Complete - No need for follow-upSUPPLEMENTAL MATERIAL: Title of written material: Abcess drain andSedation informationREFERRAL (RECOMMENDATION): NoneElectronically Signed By: Dhara Rivero RN In Department: [address] Normal [facility] PTT,Anticoag Therapyon 08-15 aPTT 39.8 s High 23.0-32.4 [facility] Comment on above: Result Comment: Unfr actionated [...] laboratory APTT reagent in use throughout the [facility]. Performed By: #### P T, PTT, AMYL, CMP, LIPA, PHOS ####[address] [phone]#### TRANSF ####[place] [address] [place], [place] [phone] Phosphoruson 08-15-2017 Phosphate 2.2 mg/dL Low 2.5-4.5 [facility] Comment on above: Performed By: #### P T, PTT, AMYL, CMP, LIPA, PHOS ####[address] [phone]#### TRANSF ####[address] [phone] Protimeon 08-15-2017 INR Coag RelTime (Bld) 2.0 {INR} High 0.9-1.3 [facility] Comment on above: Result Comment: Tayler min K Antagonist (VKA) Therapeutic Range: INR 2 to 3 (Target INR of 2.5)Note: For patients treated with VKA drugs, such as warfarin, the [place] [employer] 2012 Guideline recommends [...] of 3).Keegan GH, et al. Chest 2012, 141:7S-47SNishneto RA, et al. [facility] 2017, 70: 252-289 Performed By: #### P T, PTT, AMYL, CMP, LIPA, PHOS ####[place] [phone]#### TRANSF ####[place] [address] [phone] PT Sec 19.4 sec High 9.7-13.0 [facility] Comment on above: Performed By: #### P T, PTT, AMYL, CMP, LIPA, PHOS ####[place] [phone]#### TRANSF ####[place] [address] [place] [phone] Urine Cultureon 08-15-2017 Urine culture, bacteria Sp. [...] <=0.25 FErtapenem SUSCEPTIBLE <=0.5 F Critically abnormal [facility] Comment on above: Performed By: #### P T, PTT, AMYL, CMP, LIPA, PHOS ####[facility] [place] [phone]#### TRANSF ####[place] [phone] Wound Culture/Stainon 2017 Wound Culture/Stain Sp. Request/Comment: - Specimen received in sterile container.Smear Result - Rare Gram positive cocci in pairs and chains --> ABNORMAL ALERT No Polymorphonuclear LeukocytesCulture Result - Moderate Streptococcus mutans group --> ABNORMAL ALERTORGANISM: Streptococcus mutans groupMETHOD: Minimum inhibitory concentration (VIZION)Antibiotic Interp JOLENE StatusPenicillin G SUSCEPTIBLE <=0.03 FVancomycin SUSCEPTIBLE <=0.5 FCeftriaxone SUSCEPTIBLE <=0.12 FClindamycin SUSCEPTIBLE <=0.12 F Critically abnormal [facility] Comment on above: Performed By: #### W CUL ####[place] [phone] ALLIED HEALTHon 08-14-2017 ALLIED HEALTH HNO ID: [id number] thor: Albert Sutherland: (none)Author Type: (none)Type: Allied HealthFiled: 08/14/2017 7:17 PMNote Text: Radiology Service Progress NotePATIENT NAME: Rociomarisa JacksonN: [id number] OF SERVICE: August 14, 2017TIME: 7:16 PMPATIENT IDENTITY VERIFICATION COMPLETED USING TWO (2) METHODS: Patientconfirmed name verbally and ID band matches..PATIENT GENDER DATA: MalePATIENT RELEVANT IMPLANT DATA REVIEWED: Not ApplicableCONTRAST INDUCED NEPHROPATHY RISK FACTORS: Patient age > 60 yearsCREATININE:CreatinineDa te Value Ref Range Xneoyp4708/14/2017 0.61 (L) 0.70 - 1.40 mg/dL Final08/14/2017 0.63 (L) 0.70 - 1.40 mg/dL Final eGFR-All Other RacesDate Value Ref Range Lgjcqv5008/14/2017 >60 >60 . Final eGFR- AmericanDate Value Ref Range Smwhvf2208/14/2017 >60 >60 Final P.O.C.T. RESULTS: POC done: Yes, See Lab Tab August 14, 2017RADIOLOGIST NOTIFIED?: NoALLERGIES: Reviewed and unchangedCONTRAST ALLERGY: NO.PERIPHERAL IV ACCESS: Inpatient: see LDA documentationRADIOLOGY DEPARTMENT: CT; Exam(s) Completed: Abdomen/Pelvis , Chest andPancreasSIGNED BY: Albert Vaughan 2017 7:16 PM [facility] ALLIED HEALTH HNO ID: [id number] thor: Denise Graham RTService: (none)Author Type: (none)Type: Allied HealthFiled: 08/14/2017 1:32 AMNote Text: Radiology Service Progress NotePATIENT NAME: Rocio Boudreaux: [id number] OF SERVICE: August 14, 2017TIME: 1:32 AMPATIENT IDENTITY VERIFICATION COMPLETED USING TWO (2) METHODS: Patientconfirmed name verbally and ID band matches..PATIENT GENDER DATA: MalePATIENT RELEVANT IMPLANT DATA REVIEWED: Not ApplicableRADIOLOGY DEPARTMENT: General X-ray: Exam(s) Completed: Chest X-RayAbdomen X-Ray AbdomenPERIPHERAL IV DATA: Not applicableSIGNED BY: Denise ESPINALMarshall Medical Center South 2017 1:32 AM [facility] APTTon 08-14-2017 aPTT 31.6 s Normal 23.0-32.4 [facility] Comment on above: Result Comment: Unfr actionated [...] laboratory APTT reagent in use throughout the [facility]. Performed By: #### P T, PTT, AMYL, CMP, LIPA, PHOS ####[place] [address]#### TRANSF ####[place] [phone] aPTT 30.2 s Normal 23.0-32.4 [facility] Comment on above: Result Comment: Unfr actionated [...] laboratory APTT reagent in use throughout the [facility]. Performed By: #### P T, PTT, AMYL, CMP, LIPA, PHOS ####[place] [address]1826[address]71[address]#### TRANSF ####[place] [address] [place] [phone] Amylaseon 08-14-2017 Amylase 59 U/L Normal 0-137 [facility] Comment on above: Performed By: #### P T, PTT, AMYL, CMP, LIPA, PHOS ####[place] [address]1826[address]#### TRANSF ####[address] [place], [place] [phone] Bilirubin, Fluidon 8 Bilirubin (direct) 6.1 mg/dL Critically abnormal See Comment [facility] Comment on above: Result Comment: Sero us [...] document C49A. SAIMA Contreras: Clinical Laboratory Standards [place]: 2007.2. Nani Y, Javierata T, Yokira Y et al. The Determination of Bile Leakage in Complex Hepatectomy Based on the Guidelines of the International Study Group of Liver Surgery. World J Surg. 2014 38:168-176.This test was developed and its performance characteristics determined by [facility]'s [facility] [place] ([facility]).It has not been cleared or approved by the FDA. [facility] is regulated under CLIA as qualified to perform high-complexity testing.This test is used for clinical purposes. It should not be regarded as investigational or for research. Performed By: #### P T, PTT, AMYL, CMP, LIPA, PHOS ####[place] [address]#### TRANSF ####[place] [phone] Fluid Other Normal [facility] Comment on above: Result Comment: ROMINA D BETTY Performed By: #### P T, PTT, AMYL, CMP, LIPA, PHOS ####[address]#### TRANSF ####[place] [phone] CBCon 08-14-2017 Erythrocyte distribution width Auto Ratio (RBC) 15.2 % High 11.5-15.0 [facility] Comment on above: Performed By: #### P T, PTT, AMYL, CMP, LIPA, PHOS ####[place] [phone]#### TRANSF ####[place] [phone] Erythrocytes (RBC) 3.70 10*6/uL Low 4.20-6.00 [facility] Comment on above: Performed By: #### P T, PTT, AMYL, CMP, LIPA, PHOS ####[place] [address]#### TRANSF ####[place] [phone] Hematocrit (HCT) 31.7 % Low 39.0-51.0 [facility] Comment on above: Performed By: #### P T, PTT, AMYL, CMP, LIPA, PHOS ####[place] [address]#### TRANSF ####[place] [phone] Hemoglobin mass conc (Bld) 10.7 g/dL Low 13.0-17.0 [facility] Comment on above: Performed By: #### P T, PTT, AMYL, CMP, LIPA, PHOS ####[place] [address]#### TRANSF ####[place] [address] MCH 28.9 pG Normal 26.0-34.0 [facility] Comment on above: Performed By: #### P T, PTT, AMYL, CMP, LIPA, PHOS ####[place] [address]#### TRANSF ####[place] [phone] MCHC mass conc (RBC) 33.8 g/dL Normal 30.5-36.0 [facility] Comment on above: Performed By: #### P T, PTT, AMYL, CMP, LIPA, PHOS ####[place] 291826[address]#### TRANSF ####[place] [phone] MCV 85.7 fL Normal 80.0-100.0 [facility] Comment on above: Performed By: #### P T, PTT, AMYL, CMP, LIPA, PHOS ####[place] [address]#### TRANSF ####[place] [phone] Platelet mean volume (PMV) 12.1 fL Normal 9.0-12.7 [facility] Comment on above: Performed By: #### P T, PTT, AMYL, CMP, LIPA, PHOS ####[place] [address]#### TRANSF ####[place] [phone] Platelets 285 10*3/uL Normal 150-400 [facility] Comment on above: Performed By: #### P T, PTT, AMYL, CMP, LIPA, PHOS ####[place] 291826[address]71[address]#### TRANSF ####[place] [phone] WBC (Leukocytes) 11.53 10*3/uL High 3.70-11.00 [facility] Comment on above: Performed By: #### P T, PTT, AMYL, CMP, LIPA, PHOS ####[place] [address]#### TRANSF ####[place] [phone] CT CHEST W IVCONon 8 CT CHEST [...] pelvis.IMPRESSION: Bilateral effusions with associated atelectasis versus infiltrates.Railroad Brake Operator [facility] Transcribe Date/Time: Aug 14 2017 8:43PDictated by : AURORA ROMERO MDThis examination was interpreted and the report reviewed and electronically signed by: AURORA ROMERO MD on Aug 14 2017 8:46PM [id number] [facility] CT PANCREAS/PELVIS W IVCONon 08-14-2017 CT PANCREAS/PELVIS [...] ROMERO MD on Aug 15 2017 5:11PM [id number] Normal [facility] Comp Metabolic Panelon 08-14 Alanine aminotransferase (ALT) 370 U/L High 5-50 [facility] Comment on above: Performed By: #### P T, PTT, AMYL, CMP, LIPA, PHOS ####[place] [address]#### TRANSF ####[place] [phone] Albumin 2.9 g/dL Low 3.5-5.0 [facility] Comment on above: Performed By: #### P T, PTT, AMYL, CMP, LIPA, PHOS ####[place] [address]#### TRANSF ####[place] [phone] Alkaline phosphatase (ALP) 727 U/L High 40-150 [facility] Comment on above: Performed By: #### P T, PTT, AMYL, CMP, LIPA, PHOS ####[place] [address]#### TRANSF ####[place] [phone] Anion gap 15 mmol/L Normal 9-18 [facility] Comment on above: Performed By: #### P T, PTT, AMYL, CMP, LIPA, PHOS ####[place] [address]#### TRANSF ####[place] [phone] Aspartate aminotransferase (AST) 285 U/L High 7-40 [facility] Comment on above: Performed By: #### P T, PTT, AMYL, CMP, LIPA, PHOS ####[place] [address]#### TRANSF ####[place] [phone] Bilirubin (total) 2.3 mg/dL High 0.0-1.5 [facility] [place] Comment on above: Performed By: #### P T, PTT, AMYL, CMP, LIPA, PHOS ####[place] [address]#### TRANSF ####[place] [phone] Calcium 8.5 mg/dL Normal 8.5-10.5 [facility] Comment on above: Performed By: #### P T, PTT, AMYL, CMP, LIPA, PHOS ####[place] [address]#### TRANSF ####[place] [phone] Chloride 96 mmol/L Low 98-110 [facility] Comment on above: Performed By: #### P T, PTT, AMYL, CMP, LIPA, PHOS ####[place] [address]#### TRANSF ####[place] [phone] CO2 22 mmol/L Low 23-32 [facility] Comment on above: Performed By: #### P T, PTT, AMYL, CMP, LIPA, PHOS ####[place] [address]#### TRANSF ####[place] [phone] Creatinine 0.61 mg/dL Low 0.70-1.40 [facility] Comment on above: Performed By: #### P T, PTT, AMYL, CMP, LIPA, PHOS ####[place] 291826[address]71[address]#### TRANSF ####[place] [phone] eGFR (non-black) mL/min/{1.73_m2} Normal >60 [facility] Comment on above: Performed By: #### P T, PTT, AMYL, CMP, LIPA, PHOS ####[place] 291826-7110#### TRANSF ####[place] [phone] Glucose mass conc 147 mg/dL High 65-100 [facility] Comment on above: Performed By: #### P T, PTT, AMYL, CMP, LIPA, PHOS ####[place] 291826-71[address]#### TRANSF ####[place] [phone] Potassium molar conc 3.8 mmol/L Normal 3.5-5.0 [facility] Comment on above: Performed By: #### P T, PTT, AMYL, CMP, LIPA, PHOS ####[place] 291826-7110#### TRANSF ####[place] [phone] Protein 6.4 g/dL Normal 6.0-8.4 [facility] Comment on above: Performed By: #### P T, PTT, AMYL, CMP, LIPA, PHOS ####[place] 291826-71[address]#### TRANSF ####[place] [phone] Sodium 133 mmol/L Low 135-146 [facility] Comment on above: Performed By: #### P T, PTT, AMYL, CMP, LIPA, PHOS ####[place] [address]#### TRANSF ####[place] [phone] Urea nitrogen 9 mg/dL Low 10-25 [facility] Comment on above: Performed By: #### P T, PTT, AMYL, CMP, LIPA, PHOS ####[place] [address]#### TRANSF ####[place] [phone] Alanine aminotransferase (ALT) 418 U/L High 5-50 [facility] Comment on above: Performed By: #### P T, PTT, AMYL, CMP, LIPA, PHOS ####[place] [address]#### TRANSF ####[place] [phone] Albumin 3.1 g/dL Low 3.5-5.0 [facility] Comment on above: Performed By: #### P T, PTT, AMYL, CMP, LIPA, PHOS ####[place] [address]#### TRANSF ####[place] [phone] Alkaline phosphatase (ALP) 832 U/L High 40-150 [facility] Comment on above: Performed By: #### P T, PTT, AMYL, CMP, LIPA, PHOS ####[place] [address]#### TRANSF ####[place] 465734[address]5755 Anion gap 13 mmol/L Normal 9-18 [facility] Comment on above: Performed By: #### P T, PTT, AMYL, CMP, LIPA, PHOS ####[place] [address]#### TRANSF ####[place] 465734[address] Aspartate aminotransferase (AST) 395 U/L High 7-40 [facility] Comment on above: Performed By: #### P T, PTT, AMYL, CMP, LIPA, PHOS ####[place] [address]#### TRANSF ####[place] 465734[address] Bilirubin (total) 2.7 mg/dL High 0.0-1.5 [facility] [place] Comment on above: Performed By: #### P T, PTT, AMYL, CMP, LIPA, PHOS ####[place] [address]#### TRANSF ####[place] [id number] Calcium 8.9 mg/dL Normal 8.5-10.5 [facility] Comment on above: Performed By: #### P T, PTT, AMYL, CMP, LIPA, PHOS ####[place] [address]#### TRANSF ####[place] [phone] Chloride 96 mmol/L Low 98-110 [facility] Comment on above: Performed By: #### P T, PTT, AMYL, CMP, LIPA, PHOS ####[place] [address]#### TRANSF ####[place] [address] [phone] CO2 23 mmol/L Normal 23-32 [facility] Comment on above: Performed By: #### P T, PTT, AMYL, CMP, LIPA, PHOS ####[place] [address]1826[address]#### TRANSF ####[place] [phone] Creatinine 0.63 mg/dL Low 0.70-1.40 [facility] Comment on above: Performed By: #### P T, PTT, AMYL, CMP, LIPA, PHOS ####[address]#### TRANSF ####[place] [phone] eGFR (non-black) mL/min/{1.73_m2} Normal >60 [facility] Comment on above: Performed By: #### P T, PTT, AMYL, CMP, LIPA, PHOS ####[address]#### TRANSF ####[place] [address] Glucose mass conc 149 mg/dL High 65-100 [facility] [place] Comment on above: Performed By: #### P T, PTT, AMYL, CMP, LIPA, PHOS ####[place] [address]#### TRANSF ####[place] [phone] Potassium molar conc 4.2 mmol/L Normal 3.5-5.0 [facility] Comment on above: Performed By: #### P T, PTT, AMYL, CMP, LIPA, PHOS ####[place] [phone]#### TRANSF ####[place] [phone] Protein 7.0 g/dL Normal 6.0-8.4 [facility] Comment on above: Performed By: #### P T, PTT, AMYL, CMP, LIPA, PHOS ####[place] [address]#### TRANSF ####[place] [address] Sodium 132 mmol/L Low 135-146 [facility] Comment on above: Performed By: #### P T, PTT, AMYL, CMP, LIPA, PHOS ####[place] [address]#### TRANSF ####[place] [address] Urea nitrogen 9 mg/dL Low 10-25 [facility] Comment on above: Performed By: #### P T, PTT, AMYL, CMP, LIPA, PHOS ####[place] [address]#### TRANSF ####[place] [phone] HISTORY PHYSICALon 8 HISTORY PHYSICAL HNO ID: [id number] thor: Michael Cedillo) AugustinService: General SurgeryAuthor Type: PhysicianType: HANDPFiled: 08/14/2017 11:20 PMNote Text:SURGICAL SERVICES INITIAL HANDPSERVICE DATE: 08/13/2017SERVICE TIME: 11:52 PMPRIMARY CARE PHYSICIAN: No primary care provider on file.SubjectiveHISTORY OF PRESENT ILLNESS: Mr. Jackson is a 62 year old male with PMH ofCAD s/p stent x2, type 2 DM on metformin, HTN, glaucoma, PSH ofcholecystectomy ) who was transferred from [facility].Patient reports symptoms of abdominal pain and multiple [...] from the mass and he wastransferred to [facility] for further management.Of note he has an episode of bleeding duodenal ulcer for which he receivedmultiple blood transfusion.PAST MEDICAL HISTORYDiagnosis Date- Bleeding ulcer 11/15/2016 required 5 blood transfusions- Diabetes mellitus (HCC) 2016- Glaucoma- Hypertension- Myocardial infarction 05/15/2011PAST SURGICAL HISTORYProcedure Laterality Date- ANGIOPLASTY HX 05/15/2011 2 stents s/p DE;[facility]- [facility]Y 08[facility]11/2017 [facility]No family history on file.Social HistorySubstance Use Topics- [...] by mouth once daily. Disp: Rfl:08/10/[address] [place] [address] medications:[START ON 08/14/2017] pneumococcal vaccine 23 VALENT [...] Non labored breathing on RACARDIOVASCULAR: History of DE with stents on 162 aspirinGI: Vomiting and [...] No bleeding or othersignificant complications were noted.Impression/Recommendat ionsMrDary Jackson is a 62 year old male with PMH of CAD s/p stent x2, type 2 DMon metformin, HTN, glaucoma, PSH of cholecystectomy (08/11/2017), ERCP(08/13/17) who was transferred from [facility] for management of partial duodenalobstruction. Symptoms of [...] due to malignancyPlans:- Admit under Dr Jolley- MIGUELINA for decompression to BELEM, DELVIS to confirm placement- ROMINA drain to negative [...] staffSIGNATURE: Serena Trent MD PATIENT NAME: Rocio JacksnoDATE: August 13, 2017 : 11:52 PM PAGER/CONTACT #: [phone] NOTEI have independently seen and examined the patient today. I haveindependently reviewed all the imaging and the labs. I agree with keycomponents of the resident's note above. Care plan and decision making hasbeen discussed.Patient with obstructing duodenal mass [facility]2 months of abdominal painUnderwent lap richelle recentlySymptoms have been worse since surgeryAbd is soft and non peritonitic. RUQ tenderness noted. Drain with bileI have reviewed the CT.2 large collections and Duodenal mass. No liver or pulmonary metastasesTumor markersIR drain for abdominal fluid collection; these are likely bilomas givenCBD obstruction at the time of cholecystectomyEGD/ERCP for biliary stentNeeds Cassie Jolley MD, MPH, FACSGeneral/Trauma/HPB SurgeryPager: [phone] Cell: [phone] 2017 Normal [facility] Lipaseon 08-14-2017 Lipase 43 U/L Normal [facility] Comment on above: Performed By: #### P T, PTT, AMYL, CMP, LIPA, PHOS ####[place] [address]#### TRANSF ####[place] [address] Lipase 58 U/L Normal [facility] Comment on above: Performed By: #### P T, PTT, AMYL, CMP, LIPA, PHOS ####[place] [address]#### TRANSF ####[place] [address] NURSING PROGon 08-14-2017 NURSING PROG HNO ID: [id number] thor: Kiley Wong, RNService: (none)Author Type: Registered NurseType: Nursing Progress NoteFiled: 08/14/2017 6:27 PMNote Text: Nursing Progress NotePatient Name: Rocio BrianDary: [id number] Location: [facility]3C36/PA-QH8B-89 ____Daily Note:1800-Patient reporting a significant increase in [...] tea colored fluid. Call placed to surgical technologist to notify, hewill be up to see the patient. Repositioned for comfort, no new orders atthis time.1809-Resident is in to see patient, orders to continue to monitor. Callplaced to CT to determine when patient will be taken down. Per technical testing engineer thepatient is on the transport list and CT will be completed soon.is note was completed by: Kiley Wong RN [facility] NURSING PROG HNO ID: [id number] thor: Jacqueline (Rn) Jeremy, RNService: (none)Author Type: Registered NurseType: Nursing Progress NoteFiled: 08/13/2017 10:36 PMNote Text: Nursing Progress NotePatient Name: Rocio JacksonMRN: [id number] Location: [place] [address]/ZE-RO3J-03 ____Transfer Note:Patient transferred into room/unit PK336 at 2145. Actions taken:Dressingaround pt ROMINA drain changed AND ROMINA emptied. Will follow up with orders andcontinue to monitor.This note was completed by: Jacqueline Luna RN [facility] NUTRITIONon 08-14-2017 NUTRITION HNO ID: [id number] thor: Alise Segura) BarsaService: Nutrition TherapyAuthor Type: [...] 87 kgResting Metabolic Rate: 1661Estimated kilocalorie needs: 9824-5004 kilocalories determined by 25-28kcal/kgEstimated protein needs:113 - [...] lb 9.6 oz) SpO2 93% BMI 29.28 kg/p3[facility] 08/14/1803GLUC 147* -- 149*BUN 9* -- [...] Alise Lopez RD, LD PATIENT NAME: Rocio VenturaDATE: August 14, 2017 : 2:31 PM PAGER: For further assistance and weekends please page theGroup Pager -[phone] Normal [facility] Phosphoruson 08-14-2017 Phosphate 2.4 mg/dL Low 2.5-4.5 [facility] Comment on above: Performed By: #### P T, PTT, AMYL, CMP, LIPA, PHOS ####[place] [address]#### TRANSF ####[place] [address] [address] [place] [place] [address] Phosphate 2.3 mg/dL Low 2.5-4.5 [facility] Comment on above: Performed By: #### P T, PTT, AMYL, CMP, LIPA, PHOS ####[address]#### TRANSF ####[place] [address] [address] Av[address] [place] [address] Phosphate 2.3 mg/dL Low 2.5-4.5 [facility] Comment on above: Performed By: #### P T, PTT, AMYL, CMP, LIPA, PHOS ####[place] [address]#### TRANSF ####[place] [phone] Prealbuminon 08-14-2017 Prealbumin 7 mg/dL Low 17-36 [facility] Comment on above: Performed By: #### P T, PTT, AMYL, CMP, LIPA, PHOS ####[place] [address]#### TRANSF ####[place] [phone] Protimeon 08-14-2017 INR Coag RelTime (Bld) 1.5 {INR} High 0.9-1.3 [facility] Comment on above: Result Comment: Tayler min K Antagonist (VKA) Therapeutic Range: INR 2 to 3 (Target INR of 2.5)Note: For patients treated with VKA drugs, such as warfarin, the [employer] [employer] 2012 Guideline recommends [...] of 3).Keegan GH, et al. Chest 2012, 141:7S-47SNishneto RA, et al. [facility] 2017, 70: 252-289 Performed By: #### P T, PTT, AMYL, CMP, LIPA, PHOS ####[place] [address]#### TRANSF ####[place] [phone] PT Sec 14.9 sec High 9.7-13.0 [facility] Comment on above: Performed By: #### P T, PTT, AMYL, CMP, LIPA, PHOS ####[place] [address]#### TRANSF ####[place] [phone] INR Coag RelTime (Bld) 1.5 {INR} High 0.9-1.3 [facility] Comment on above: Result Comment: Tayler min K Antagonist (VKA) Therapeutic Range: INR 2 to 3 (Target INR of 2.5)Note: For patients treated with VKA drugs, such as warfarin, the [place] [employer] 2012 Guideline recommends [...] of 3).Keegan GH, et al. Chest 2012, 141:7S-47SNishneto RA, et al. [facility] 2017, 70: 252-289 Performed By: #### P T, PTT, AMYL, CMP, LIPA, PHOS ####[place] [address]#### TRANSF ####[address]444[address] PT Sec 14.7 sec High 9.7-13.0 [facility] Comment on above: Performed By: #### P T, PTT, AMYL, CMP, LIPA, PHOS ####[place] [address]#### TRANSF ####[place] [address] Transferrinon 08-14-2017 Transferrin 218 mg/dL Normal 200-360 [facility] Comment on above: Performed By: #### P T, PTT, AMYL, CMP, LIPA, PHOS ####[address]#### TRANSF ####[place] [address] Type and Screenon 08-14-2017 ABO/RH(D) Positive [facility] Comment on above: Performed By: #### P T, PTT, AMYL, CMP, LIPA, PHOS ####[address]#### TRANSF ####[place] [address] Antibody Screen Negative [facility] Comment on above: Performed By: #### P T, PTT, AMYL, CMP, LIPA, PHOS ####[address]#### TRANSF ####[facility] [address] [place], [place] [phone] XR ABDOMEN 1V SUPINEon 08-14 XR ABDOMEN [...] excluded from view.IMPRESSION:NG TUBE EXTENDS TO THE STOMACH.Railroad Brake Operator: NII Transcribe Date/Time: Aug 14 2017 7:37ADictated by : SUSAN CORNEJO MDThis examination was interpreted and the report reviewed and electronically signed by: SUSAN CORNEJO MD on Aug 14 2017 7:38AM [id number] [facility] XR CHEST 1V FRONTAL PORTon 0 [...] Partially obscured.Other:IMPRESSION:Lo w lung volumes with bibasilar atelectasis.Railroad Brake Operator : NII Transcribe Date/Time: Aug 14 2017 7:38ADictated by : SUSAN CORNEJO MDThis examination was interpreted and the report reviewed and electronically signed by: SUSAN CORNEJO MD on Aug 14 2017 7:40AM [id number] [facility] HOSPon 08-13-2017 HOSP Patient:Jason Jackson RN: [...] LR infusion (D5-LR)heparin 5,000 Units injectionphenol 1 [place] (CHLORASEPTIC)metoprolol tartrate (short acting) 25 mg tab(s) [...] 3.5HEMA* 27.7 % 08/19/2017 51.0 39.0Progress Notes (FV PK3C):Jacqueline Sekeres, RN, RN 08/13/2017 10:36 PM Signed Nursing Progress NotePatient Name: Rocio JacksonMRN: [id number] Location: [address]/LN-PS2W-48 ____Transfer Note:Patient transferred into room/unit PK336 at [...] DM on metformin, HTN, glaucoma, PSH of vnjdgcwoishjxih98/13/2018) who was transferred from [facility].Patient reports symptoms of abdominal pain and multiple [...] from the mass and he was transferred [facility] for further management.Of note he has an episode of bleeding duodenal ulcer for which he receivedmultiple blood transfusion.PAST MEDICAL HISTORYDiagnosis Date- Bleeding ulcer 11/15/2016 required 5 blood transfusions- Diabetes mellitus (HCC) 2016- Glaucoma- Hypertension- Myocardial infarction 05/15/2011PAST SURGICAL HISTORYProcedure Laterality Date- ANGIOPLASTY HX 05/15/2011 2 stents s/p DE;[facility]- CHOLECYSTECTOMY 08/11/2017 [facility]No family history on file.Social HistorySubstance Use Topics- [...] by mouth once daily. Disp: [facility] medications:[START ON 08/14/2017] pneumococcal vaccine 23 VALENT [...] Non labored breathing on RACARDIOVASCULAR: History of DE with stents on 162 aspirinGI: Vomiting and [...] No bleeding or othersignificant complications were noted.Impression/Recommendat ionsMrDary Jackson is a 62 year old male [...] staffSIGNATURE: Serena Trent MD PATIENT NAME: Rocio JacksonDATE: August 13, 2017 : 11:52 PM PAGER/CONTACT #: [phone] NOTEI have independently seen and examined the patient today. I have independentlyreviewed all the imaging and the labs. I agree with figueroa components of theresident's note above. Care plan and decision making has been discussed.Patient with obstructing duodenal mass transferred from [facility]2 months of abdominal painUnderwent lap richelle recentlySymptoms have been worse since surgeryAbd is soft and non peritonitic. RUQ tenderness noted. Drain with bileI have reviewed the CT.2 large collections and Duodenal mass. No liver or pulmonary metastasesTumor markersIR drain for abdominal fluid collection; these are likely bilomas given CBDobstruction at the time of cholecystectomyEGD/ERCP for biliary stentNeeds TPNToms MD Froilan, MPH, FACSGeneral/Trauma/HPB SurgeryPager: [phone] Cell: [phone] 2017Previous VersionDenise Graham RT 08/14/2017 1:32 AM Signed Radiology Service Progress NotePATIENT NAME: Rocio JacksonMRN: [id number] OF SERVICE: August 14, 2017TIME: 1:32 AMPATIENT [...] 87 kgResting Metabolic Rate: 1661Estimated kilocalorie needs: 6546-9188 kilocalories determined by 25-28 kcal/kgEstimated protein needs:113 [...] lb 9.6 oz) SpO2 93% BMI 29.28 kg/s8Kfqaag [facility] 08/14/1803GLUC 147* -- 149*BUN 9* -- [...] assistance and weekends please page the GroupPager [phone] Stewart, RN, RN 08/14/2017 6:27 PM Signed Nursing Progress NotePatient Name: Rocio HayesN: [id number] Location: [place] [address]/RG-UO8J-76 ____Daily Note:1800-Patient reporting a significant increase in [...] dark tea coloredfluid. Call placed to surgical technologist to notify, he will be up to see thepatient. Repositioned for comfort, no new orders at this time.1810-Resident is in to see patient, orders to continue to monitor. Call placedto CT to determine when patient will be taken down. Per technical testing engineer the patient is[place] the transport list and CT will be completed soon.is note was completed by: Radha Pacheco 08/14/2017 7:17 PM Signed Radiology Service Progress NotePATIENT NAME: Rocio JacksonMRN: [id number] OF SERVICE: August 14, 2017TIME: 7:16 PMPATIENT IDENTITY VERIFICATION COMPLETED USING TWO (2) METHODS: Patientconfirmed name verbally and ID band matches..PATIENT GENDER DATA: MalePATIENT RELEVANT IMPLANT DATA REVIEWED: Not ApplicableCONTRAST INDUCED NEPHROPATHY RISK FACTORS: Patient age > 60 yearsCREATININE:CreatinineDa te Value Ref Range Tgwlgs1808/14/2017 0.61 (L) 0.70 - 1.40 mg/dL Final08/14/2017 0.63 (L) 0.70 - 1.40 mg/dL Final eGFR-All Other RacesDate Value Ref Range Btoabf7308/14/2017 >60 >60 . Final eGFR- AmericanDate Value Ref Range Rvtgja9708/14/2017 >60 >60 Final P.O.C.T. RESULTS: POC done: Yes, See Lab Tab August 14, 2017RADIOLOGIST NOTIFIED?: NoALLERGIES: Reviewed and unchangedCONTRAST ALLERGY: NO.PERIPHERAL IV ACCESS: Inpatient: see LDA documentationRADIOLOGY DEPARTMENT: CT; Exam(s) Completed: Abdomen/Pelvis , Chest andPancreasSIGNED BY: Albert Melarahealthsouth [facility] 2017 7:16 Ignacio Serrato CNP 08/15/2017 4:44 PM Attested ----Attestation signed by Lourdes Ferrari at 08/17/2017 10:00 AMATTENDING NOTE:?I performed a history and physical examination of the patient and supervisedand discussed plan of care and management with the PA/PROTECTIVE CLOTHING ISSUER. I reviewed thePA/PROTECTIVE CLOTHING ISSUER's note and agree with the documented findings and plan of care.? ?Thank you for allowing us to participate in the care of this patient. Pleasecall with any questions or concerns.Lawrence Tamayo GastroenterologyPadylan [phone] --------CONSULT: [facility] Gastroenterology SERVICESERVICE DATE: 08/15/2017SERVICE TIME: 9:04 AMREASON FOR CONSULT: ERCPREQUESTING PHYSICIAN: Dr. Michael JolleyWE[facility]: No primary care provider on file.SubjectiveMr. Jackson is a 62 year old male with PMH of CAD s/p stent x2, type 2 DM onmetformin, HTN, glaucoma, PSH of cholecystectomy (08/11/2017, ERCP 08/13/17) whowas [facility] due to ulcerated mass possibleadenocarcinoma.The patient states that he had intermittent RUQ abdominal pain for sometime and became acutely worse. He subsequently underwent cholecystectomy [facility]. He had persistent pain and elevated LFT's following the richelle andunderwent ERCP on 08/13/17 which showed a duodenal mass and was biopsied. [facility] and [facility]. Following [...] 2.3, AST 285, ALT 370, and new jnyujqdrpchq95.53-->16.33.No t currently on antibiotics.FUNCTIONAL STATUS: IndependentPAST MEDICAL HISTORYDiagnosis Date- Bleeding ulcer 11/15/2016 required 5 blood transfusions- Diabetes mellitus (HCC) 2016- Glaucoma- Hypertension- Myocardial infarction 05/15/2011PAST SURGICAL HISTORYProcedure Laterality Date- ANGIOPLASTY HX 05/15/2011 2 stents s/p DE;[facility]- CHOLECYSTECTOMY 08/11/2017 [facility] family history on file.Social HistorySubstance Use Topics- [...] by mouth once daily. Disp: R[facility]: [facility]2017[facility] medications:oxyCODONE IR 5 mg tab(s) (ROXICODONE) 5 [...] control as per primary service-Maintain NPO-IV Cipro diversional therapist's assistant for ERCP (ordered)D/w Dr. Nava and Dr. FerrariSIGNATURE: Gissell Serrato CNP PATIENT NAME: Rocio JacksonDATE: August 15, 2017 : 9:04 AM PAGER: [phone] M Beskid, RN, RN 08/15/2017 6:48 PM Addendum Nursing Progress NotePatient Name: Rocio TorresdonnyMRN: [id number] Location: [place] [address]/PL-KU5G-34 ____Daily Note:Pt phos level 2.2 - text [...] productive cough. Safetymaintained.This note was completed by: EMIL Watkinsrejaden Barber RD, LD 08/15/2017 1:17 PM AddendumNUTRITION SUPPORT TEAMTOPIC: NUTRITION SUPPORT PROGRESS NOTEPATIENT NAME: Rocio Boudreaux: [id number] OF : 1955DATE: 08/15/2017Nutritional Status: SEVERE PROTEIN CALORIE MALNUTRITION in the context of acuteIllness or Injury based on weight loss, subcutaneous fat loss and muscle lossConsult for Nutrient IntakeInterval History: per surgeryMr. Jackson is a 62 year old male [...] 87 kgResting Metabolic Rate: 1661Estimated kilocalorie needs: 7697-6815 kilocalories determined by 25-28 kcal/kgEstimated protein needs:113 [...] (192 lb 9.6 oz) SpO2 92% BMI29.28 kg/v5[place] Weight: Weight: 87.4 kg (192 lb 9.6 [...] -- --CA 8.7 -- 8.5 8.9Recent Labs 266472SVFHGB 7*Accuchecks:Glucose, Point of Care (mg/dL)Date Value08/15/2017 141 (A)08/15/2017 154 (A)08/15/2017 138 (A)08/14/2017 148 (A)Alana Barber RD, LDPager: For further assistance and weekends please page the Group Rvijk-[phone] :3Previous Constance Patel MD 08/15/2017 2:07 PM [...] Date- ANGIOPLASTY HX 05/15/2011 2 stents s/p DE;[facility]- [facility]CY[facility]Y 08[facility]11/2017 [facility] medications as of 08/13/17 2301Medication [...] 20 mg by mouth twice daily. 08/11/2017 of5952 Yesnitroglycerin sublingual (NITROSTAT) 0.4 mg SL tablet [...] ModerateSIGNATURE: Reji Patel MD PATIENT NAME: Rocio JacksonDATE: August 15, 2017 : 2:05 PM PAGER: [phone] Rivero RN, RN 08/15/2017 3:13 PM SignedAMBULATORY PATIENT [...] instructionPATIENT / FAMILY RESPONSE: Verbalizes understanding of: HDMC-BBRAKFBKZSYMGYCRCXFUE-L orrect actions to take to reduce post procedure complicationsPRE-PROCEDURE INSTRUCTIONS-Correct action to take to follow pre-procedureinstructionsFOL LOW-UP PLAN: Complete - No need for follow-upSUPPLEMENTAL MATERIAL: Title of written material: Abcess drain and SedationinformationREFERRAL (RECOMMENDATION): NoneElectronically Signed By: Dhara Rivero RN In Department: [facility]3Sean Patel MD 08/15/2017 2:46 PM SignedRadiology Brief [...] 15, 2017 : 2:45 PM PAGER/CONTACT #: [phone] A [address] 08/15/2017 2:49 PM Signed Radiology Service Progress NotePATIENT NAME: Rocio JacksonMRN: [id number] OF SERVICE: August 15, 2017TIME: 2:48 PMPATIENT IDENTITY VERIFICATION COMPLETED USING TWO (2) METHODS: Patientconfirmed name verbally and ID band matches..PATIENT GENDER DATA: MalePATIENT RELEVANT IMPLANT DATA REVIEWED: Not ApplicableRADIOLOGY DEPARTMENT: CT; Exam(s) Completed: ABSCESS DRAINAGEPERIPHERAL IV DATA: Not applicableSIGNED BY: Jennifer Win [facility] 2017 2:48 PMAraul Duffy MD 08/15/2017 5:53 [...] entry)Kael Hernandez MD, MD 08/15/2017 7:29 PM SignedGENERAL SURGERY PROGRESS NOTENAME: Rocio JacksonMRN: [id number] 2017 7:20 PMASSESSMENT AND PLAN:Mr. Jackson is [...] tachycardic during the day. EKG revealed A-fib. Kymoqikk5v939 NSB, responded to bolus.IR drained 110cc dark serous fluid on 08/15- Continue pain control regimen- FEN/GI: NPO diet; mIVF- Abx: Cipro- Prophylaxis: DVT prophylaxis, IS, OOB, ambulate- Telemetry- PICC line placement- Nutrition consult for TPN- Dispo: ARLINE HERNANDEZ MDGeneral SurgeryPager: [phone]*On weekends or nights (after 1800) please contact the surgery diversional therapist's assistant pager.*SUBJECTIVE: No acute issues overnight and during the day. Resting comfortablyin bed.OBJECTIVE:BP 109/58 Pulse 78 Temp 36.3 ?C (97.4 ?F) (Oral) Resp 18 Ht 172.7 cm (5'8 ) Wt 87.4 kg (192 lb 9.6 oz) SpO2 94% BMI 29.28 kg/f2RRIZXVR: alert, NADLUNGS: breathing comfortablyCARDIAC: irregularABDOMEN: mildly TTP in upper abd, mildly distended, softEXTREMITIES: warm and well perfusedDRAINS/LINES: bilious drainage from JPDate 08/14/17 1500 - 08/15/17 0659 08/15/17 0700 - 08/16/17 0659Shift 8207-2809 9132-7546 24 Hour Total 4019-6595 6780-6692 8815-3359 24 HourTotalINTAKE PO 60 60 30 30 PO 60 60 30 30 IV 2018 2018 931 649 1974 NS 0.9% 2018 2018 296 294 6063 Irrigants 20 40 30 30 Irrigant/Flush Amount In (GI Feed/Drain 08/14/17 0109 Nasogastric Right Naris18 Fr) 20 40 30 30 Shift Total 2099 2119 744 665 1409OUTPUT Urine 575 1125 425 425 Void (ml) 575 1125 425 425 Tubes 892 988 4976 330 445 775 Drain/Tube Output (Drain/Tube [facility] Right LowerQuadrant Abdomen) 260 30 370 140 70 210 Drain/Tube Output (Drain/Tube 08/15/17 1530 Assessment Right Upper Abdomen)275 275 Output (GI Feed/Drain 08/14/17 0109 Nasogastric Right Naris 18 Fr) 745 9279064 190 100 290 # of BMs Number [...] 395*ALT 205* -- 370* -- 418*Deneen Navarro, RN, RN 08/16/2017 4:44 AM Addendum Nursing Progress NotePatient Name: Rocio Boudreaux: [id number] Location: [address]/ZW-YD3J-39 ____Daily Note:Late entry 21008/15 Labs drawn for start of heparin drip. INR 2.0Order to notify team when INR equal to or greater than 2.0.0350: Team notified that INR 2.0. Order to hold heparin drip until morning labsback with INR results. Will continue to monitor.0428: Text page to surgery for bladder scan of 665 ml and change in NG colorfrom bile to brownish noc8226: SROC up to see and assess pt. Continue to monitor bladder as pt is havingno symptoms of discomfort at this time. Wait to start heparin drip until Amlabs. Continue to monitor NG output.This note was completed by: Kaye May RN, RN 08/16/2017 6:50 PM Signed Nursing Progress NotePatient Name: Rocio Boudreaux: [id number] Location: [place] [id number] ____Daily Note:0730: SROC alpha paged re: PT/INR result 2.0 from morning lab work, heparin gttorder remains active, requesting clarification. A-fib on residential monitor, [id number]'s.0830: Call back recv'd, okay to start heparin gtt per nomogram per surgicalresmarilyn Lassiter. PICC team @ bedside, will start heparin [...] c/o upper ABD pain.Lap sites x 3 ADELA with skin glue, no drainage.1245: Dr Duffy rounding (covering for Dr Jolley) and discussed RN concernsfor INR 2.0 with heparin gtt, and vitamin K order. Per Dr Duffy, stop heparingtt and admin vitamin K. Spoke with SOCIAL WORKER for GI service, repeat PT/INR orderedfor 1200 [...] assisted up to chair, bath provided. Dr Mayorgarounded, updated him on POC, states will possibly [...] follow.SIGNATURE: Nolvia Vallejo RN PATIENT NAME: Rocio TorresdonnyDATE: August 16, 2017 : 8:03 AM PAGER/CONTACT #: [phone] Song, RN, RN 08/16/2017 8:34 AM SignedPATIENT EDUCATION TOPIC: PROCEDURE / SURGERY: Procedure/Surgery: PICCinsertion under US guidancePATIENT NAME: Rocio JacksonMRMarisa: [id number] LOCATION: [place] [address]/[id number] S TO LEARNCOGNITIVE ABILITY: Alert and orientedMOTIVATION TO LEARN: EagerInterestedFAMILY SUPPORT: High - Very involved in pt careINSTRUCTION PROVIDED TO: Patient and Family memberPATIENT LEARNS BEST BY: Individual InstructionVerbal InstructionFACTORS AFFECTING LEARNING: NonePHYSICAL LIMITATIONS AFFECTING LEARNING: NoneLEARNING RESPONSEDIAGNOSIS: ADULT: Duodenal obstructionPATIENT/FAMILY RESPONSE: Verbalizes understanding of: [id number] orrect actions to take to reduce post [...] OF PROCEDURE: August 16, 2017TIME OF PROCEDURE: 824ORDERING PHYSICIAN: Dr. HooperFORMED CONSENT: Obtained per hospital [...] applicable), Prep and Dry Time (ifapplicable). Time: 824Affirmation of Time Out: YESSign Out Discussion: Shayan Shaffer RNCATHETER PLACEMENTBrand: Charan Lot: [id number] of Lumens: 2Type of PICC: Power Injectable [...] NoneCOMPLICATIONS: NonePatient Education Materials: Placed in chartThe [facility] Central Line Insertion checklist, attached to the CentralLine-Associated Bloodstream Infection Prevention Policy, was utilized duringthis procedure.QUESTIONS or PROBLEMS: Page [phone] weekendSIGNATURE: Luis Shaffer RN PATIENT NAME: Rocio FrischDATE: August 16, 2017 : 8:35 AM PAGER/CONTACT PHONE:Khadar Duffy MD 08/16/2017 1:47 PM Addendum SURGERY INPATIENT PROGRESS NOTESName: Rocio JacksonMRN: [id number] and Plan:62 year old male with near-obstructing [...] lb 9.6 oz) SpO2 92% BMI 29.28 kg/p0Innrel/Output Summary (Last 24 hours) at 08/16/17 0835Last [...] Please callwith any questions or concerns.Gissell Serrato CNPrtmarshall medical center northre GastroenterologyOffice: Cell: VsfmxvLourdes Ferrari MD 08/16/2017 6:45 PM AddendOrtonville Hospital Gastroenterology Progress NoteSERVICE DATE: August 16, 2017SUBJECTIVENo abd pain, n/v, f/c. Afib overnight. Passing gas. No BM.OBJECTIVEMEDICATIONSCurre bradley hospital medications:potassium phosphate 30 mmol in NaCl [...] 0.2 mg INTRAVENOUS q 2 H PRNPE 427508/16/1807BP: 108/64 117/60 113/66Pulse: 92 (!) 128 92 96Resp: 18 17 16Temp: 36.9 ?C (98.4 ?F) 36.7 ?C (98 ?F) 37.4 ?C (99.3 ?F)TempSrc: Oral Oral OralSpO2: 92% 92% 95%Weight:Height:Body mass index is 29.28 kg/(m2).GENERAL: NAD, [id number]: PERRLA, EOMI, normal OPCV: RRR, normal S1, [...] on bx from duodenal mass done at [facility]alk you for allowing us to participate in the care of this patient. Pleasecall with any further questions or concerns.Lourdes Ferrari MDBad Axe GastroenterologyPg#: [phone]: Lourdes Ferrari MD PATIENT NAME: Rocio FrischDATE: August 16, 2017 : 2:42 PM PAGER: [phone] VersionRaviscristian Mayorga MD 08/16/2017 4:39 PM AddendumCONSULT: [...] 12.5 BIDPlan:Switch to metoprolol 25 TID.Monitor.CAD. Remote DE, PCI in 2013.No angina.Duodenal mass and obstructive jaundices/p perc drain placement.-plan is for ERCP with possible duodenal stent placement tomorrow.[facility] STAFF PHYSICIAN NOTE OF PERSONAL INVOLVEMENT IN [...] SERVICE: August 16, 2017TIME OF SERVICE: 4:36 [facility] COMPLAINT: abdominal painRocio Jackson is a 62 year old male, he lives in [facility]. 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 Followed by general surgery.s/p [...] Date- ANGIOPLASTY HX 05/15/2011 2 stents s/p DE;[facility]- CHOLECYSTECTOMY 08/11/2017 [facility]- PICC LINE INSERT/CONSULT 08/16/2017Past Family History:non contributorySocial [...] NOTES - SURGICAL SERVICESPATIENT NAME: Rocio JacksonMRN: [id number] HISTORY OF PRESENT ILLNESS:No acute events overnight. [...] 0522 Gross per 24 hourIntake 2570.4 mlOutput 1995 mlNet 575.4 mlSURGERY/PROCEDURE:Procedur e(s) and Anesthesia Type: [...] 87 kgResting Metabolic Rate: 1661Estimated kilocalorie needs: 4093-9304 kilocalories determined by 25-28 kcal/kgEstimated protein needs:113 - 130 grams determined by 1.3-1.5 g/kg DosingweightEstimated fluid needs: 2200 - 2400 milliliters based on 1 mL per kcalAdmission Weight: 87.4 kg (192 lb 9.6 oz)Current Weight: 87.4 kg (192 lb 9.6 oz)Body mass index is 29.28 kg/(m2). overweightALLERGIESNo Known AllergiesCurrent Facility-Administered Medications:phenol 1 [place] (CHLORASEPTIC) 1 [place] MUCOUS MEMBRANE (TOPICAL MOUTH AND THROAT) q2 [...] 3079 2570.4 Output (ml) 1190 2555 2640 1994 Net (ml) -763 -436 439 575.4Surgical Incision 08/14/17 0103 Abdomen - Laparoscopy Sites (Active)Dressing Status None: Open to Air 08/16/2017 10:06 PMIncision Closures Topical Skin Adhesive 08/16/2017 10:06 PMDrainage Description None 08/16/2017 10:06 PMDrainage Amount None 08/16/2017 10:06 PMEdges Intact 08/16/2017 10:06 PMHematoma No 08/16/2017 10:06 PMNumber of days:3MNT Billing Type: Re-assess/15 min 4 unitsSIGNATURE: Alise Lopez RD, LD PATIENT NAME: Rociomarisa TorresschDATE: August 17, 2017 : 10:20 AM PAGER: For further assistance and weekends please page the GroupPager [phone] R Bolla, MD 08/18/2017 10:29 PM SignedPROGRESS NOTE CARDIOLOGY SERVICESERVICE DATE: August 17, 2017SERVICE TIME: 12:48 PMASSESSMENT/PLANActive Problems:Atrial fibrillation. Persistent AF, ventricular rates +/- 100Heparin infusion is off. Inr was elevated, received vitamin K prior toprocedure. Today 1.0.s/p ERCP yesterdayPlan:Continue metoprolol.Spoke to surgical PROTECTIVE CLOTHING ISSUER Boubacar Espinoza. ->kimberley is for PTHC tomorrow.Will consider AC after procedure. ?Duodenal mass and obstructive jaundices/p perc drain placement.-s/p ERCP yesterday s/p dilatation. For stent placement tomorrow.As aboveContinue monitorThank you very much for allowing me to participate in this patient's care.ASHLEY MccallumUBJECTIVEINTERIM HISTORY: No chest pain or dyspnea. No [...] edema.PULSES: Peripheral pulses present.MEDICATIONS:Current Facility-Administered Medications:phenol 1 [place] (CHLORASEPTIC) 1 [place] MUCOUS MEMBRANE (TOPICAL MOUTH AND THROAT) q2 [...] Hour Labs:CBC, Coags, BMP, Mg, PhosRecent Labs 08/17/1807WBC 4.87 [...] EnzymesSIGNATURE: Sabrina Arango CNP PATIENT NAME: Rocio TorresschDATE: August 17, 2017 : 12:48 PM PAGER/CONTACT #:Previous Bartolome Tomas, RN, RN 08/17/2017 2:14 PM SignedCARE MANAGEMENT: ASSESSMENT AND DISCHARGE PLANSERVICE DATE: 08/17/2017SERVICE TIME: 2:11 PMPRIMARY CARE PHYSICIAN:No primary care provider on file.Phone: NoneADMISSION STATUS: InpatientPOTENTIAL DISCHARGE PLANSTo Be DeterminedPatient/Representa tive Stated Goals: I am having a test this afternoon.Needs Prior to Discharge: To Be DeterminedHealth Insurance: [facility]Living Arrangement: HomeLives With: 2 adult childrenFinancial Resources: N/APrimary Contact:Extended Emergency Contact InformationPrimary Emergency Contact: Owen Muller: [place], [place] [address]Gjiw Qvojoxqg: SiblingSupportive: YesOther Important Patient Contacts: NoneCAREGIVER ASSESSMENT:Caregiver [...] days? NoHas the Patient Been in a Residential Facility in the Past 30 days? NoFREEDOM OF CHOICE EXPLAINED:Marisa/RUDY COMMUNICATION:Poncho MAYORGA met with pt at bedside for assessment.His [...] 17, 2017 : 2:07 PM PAGER/CONTACT #: [phone] Zelin, MD 08/17/2017 3:21 PM SignedREGIONAL ANESTHESIOLOGY DAY OF SURGERY NOTEPATIENT NAME: Rocio JacksonMRN: [id number]: 1955Procedure(s) (LRB):ERCP (N/A)Surgeon(s):Srinath NavaEstimated body mass index [...] Date- ANGIOPLASTY HX 05/15/2011 2 stents s/p DE;[facility]- CHOLECYSTECTOMY 08/11/2017 [facility]- PICC LINE INSERT/CONSULT 08/16/2017No family history on file.Social History:Social HistorySubstance Use Topics- Smoking status: Former Smoker Types: Cigarettes Quit date: 2010- Smokeless tobacco: Never Used- Alcohol use 1.5 oz/week 1 Cans of Beer (12oz) per week Comment: occasional beerNo current facility-administered medications on file prior to encounter.No current outpatient prescriptions on file prior to encounter.[facility]patient [facility] in [facility].I have interviewed and examined the patient. I have reviewed the medical recordand/or the pre-anesthesia evaluation, pertinent labs, and test results.Significant changes in the patient's condition since the History and Physical,not otherwise documented in primary service progress notes: [facility] contains updated information obtained within 48 hours of Surgery/Procedure.SIGNATURE: Reba Valle MD PATIENT NAME: Rocio FrischDATE: August 17, 2017 : 3:20 PM PAGER/CONTACT [...] NOTES - SURGICAL SERVICESPATIENT NAME: Rocio JacksonMRN: [id number] HISTORY OF PRESENT ILLNESS:No acute events overnight. [...] non distended.CBC, Coags, BMP, Mg, PhosRecent Labs 5 3 7 08/15/1820WBC 4.87 -- 7.02 11.42* 12.79*HB 8.6* -- [...] care: IS, EVERETT HERNANDEZ MD (Res)General SurgeryPager: [phone]*On weekends or nights (after 1800) please contact the surgery diversional therapist's assistant pager.*Attending: ERCP results noted. Unable to cannulate [...] understand.Khadar Duffy MDFebruary 2017 6:11 PMPrevious VersionLinda Avalos CNP 08/18/2017 1:23 PM SignedCONSULT PROGRESS NOTESERVICE DATE: 08/18/2017SERVICE TIME: 1:20 PMCONSULTING SERVICE: GISubjectiveINTERVAL HPI: No acute events overnight. 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 Pleasecall with questions or concerns.SIGNATURE: Linda Avalos CNP PATIENT NAME: Rocio FrischDATE: August 18, 2017 : 1:20 PM PAGER: [phone] Barsa, RD, LD 08/18/2017 1:39 PM SignedNUTRITION THERAPY PROGRESS NOTESERVICE DATE: 08/18/2017SERVICE TIME: 1:24 PMRECOMMENDED DIAGNOSIS: SEVERE PROTEIN-CALORIE MALNUTRITION per RegisteredDietitian on 08/14NUTRITION CARE PLANIntervention:Diet NPOAdvance to clearsMonitor and Evaluation:Goal: Meet >75% of estimated needsMonitor fluid/electrolyte balanceMonitor labs, I/Os, vital signs, weightDischarge Nutrition Recommendations:To be daxyyczzun57 year old male with a history notable [...] (HumaLOG) SUBCUTANEOUS w MEALS AND HSphenol 1 [place] (CHLORASEPTIC) 1 [place] MUCOUS MEMBRANE (TOPICAL MOUTH AND THROAT) q2 [...] Alise Lopez RD, LD PATIENT NAME: Rocio Sibley: August 18, 2017 : 1:24 PM PAGER: For further assistance and weekends please page the GroupPaitn -[phone] Berardi, RN, RN 08/18/2017 2:30 PM SignedMULTIDISCIPLINARY ROUNDSSERVICE DATE: 08/18/2017 ADMISSION DATE: 08/13/2017SERVICE TIME: 2:27 PM ANTICIPATED D/C DATE: 1-3 daysProblem List:ACTIVE PROBLEM LISTDuodenal ObstructionSevere Protein-Calorie Malnutrition (Hcc)Attendees Present at Rounds:Color Repairer: Roderick Nurse: Laura Discussed on Rounds:Discharge NeedsPlan [...] BY: Alexandrea Tomas RN PATIENT NAME: Rocio VizcarraTE: August 18, 2017 : 2:27 PM CSN: [id number] J Gobel, RN, RN 08/19/2017 3:24 AM Signed Nursing Progress NotePatient Name: Rocio HayesN: [id number] Location: [place] [address]/[id number] ____ Pt with mild abd pain of 3 or less tonight. Tylenol controlling. Pt aware ifneeded may have pain pills. Accordian drain flushed at 2100 per order forpositive return of sterile NS and brown liquid.This note was completed by: Vipul Das RN, RN 08/19/2017 11:47 AM SignedPATIENT EDUCATION TOPIC: PROCEDURE / SURGERY: Procedure/Surgery: PTHCPATIENT NAME: Rocio HayesN: [id number] LOCATION: [place] [address]READINES S TO LEARNCOGNITIVE ABILITY: Alert and orientedMOTIVATION TO LEARN: EagerInterestedFAMILY SUPPORT: Unable to assess - Family not presentINSTRUCTION PROVIDED TO: PatientPATIENT LEARNS BEST BY: Individual InstructionWritten Instruction - Hand-outsVerbal InstructionFACTORS AFFECTING LEARNING: NonePHYSICAL LIMITATIONS AFFECTING LEARNING: NoneLEARNING RESPONSEDIAGNOSIS: ADULT: Duodenal massPATIENT/FAMILY RESPONSE: Verbalizes understanding of: [id number]-J orrect actions to take to reduce post procedure complicationsPRE-PROCEDURE INSTRUCTIONS-Correct action to take to follow pre-procedureinstructionsMET HOD OF INSTRUCTION: Individual instructionWritten instruction - handoutsVerbal instructionFOLLOW-UP PLAN: Follow-up with Primary CareINSTRUCTIONAL AIDS USED: NASUPPLEMENTAL MATERIAL PROVIDED TO PATIENT: NoneREFERRAL (RECOMMENDATION): NoneElectronically Signed By: Leidy Nguyen, MD 08/19/2017 12:47 PM SignedUPDATED PROCEDURAL SEDATION [...] no rubs, murmurs, or gallopsProvisional Diagnosis/Treatment Plan: [facility] wGeneral AnesthesiaThis HANDP can be found in the attached.SIGNATURE: Vanessa Garcia MD PATIENT NAME: Rocio JacksonDATE: August 19, 2017 : 12:47 PM PAGER: [phone] CARLOS Lopez, LD 08/19/2017 2:22 PM SignedNUTRITION [...] 87 kgResting Metabolic Rate: 1661Estimated kilocalorie needs: 1774-4688 kilocalories determined by 25-28 kcal/kgEstimated protein needs:113 [...] kg (192 lb) SpO2 98% BMI 29.19 kg/h4Nobbxk Labs 5GLUC 144*BUN 7*CREAT 0.58*NA 142K 3.4*CHLOR 108CO2 23ALB [...] 5,000 Units SUBCUTANEOUS q 8 Hphenol 1 [place] (CHLORASEPTIC) 1 [place] MUCOUS MEMBRANE (TOPICAL MOUTH AND THROAT) q2 [...] RD, LD PATIENT NAME: Rocio VizcarraTE: August 19, 2017 : 2:05 PM PAGER: For further assistance and weekends please page the GroupPager [phone] Tritle, MD 08/19/2017 2:57 PM SignedBRIEF OPERATIVE / PROCEDURE NOTESurgery/Procedure Date: 08/19/17Incision/Procedure Start Time:Incision Close/Procedure End Time:Surgeon(s)/Proceduralis t(s) and Cofounder(s):Dusty Garcia - PrimaryProcedure(s): R PTHC and Int/Ext biliary drainAnesthesia: GeneralFindings: Mildly dilated IH ducts. NO filling defects. Severe D2-3 strictureEstimated Blood Loss: MinimalSpecimens: NoneComplications: NonePre-Op/Pre-Procedure Diagnosis: Duodenal massPost-Op/Post-Procedure Diagnosis: SameSIGNATURE: Vanessa Garcia MD PATIENT NAME: Rocio VizcarraTE: August 19, 2017 : 2:56 PM PAGER/CONTACT #: [facility] Vital Signs Date Time Vital Sign Value Performing Clinician Facility 06-04-2023 13:30-0500 Body height 168.91 cm David Caputo Other [facility] Other 06-04-2023 13:30-0500 Body mass index (BMI) [Ratio] 20.67 kg/m2 David Caputo Other [facility] Other 06-04-2023 13:30-0500 Body weight 58.97 kg David Caputo Other [facility] Other 06-04-2023 13:30-0500 Diastolic blood pressure 63 mm[Hg] David Caputo Other [facility] Other 06-04-2023 13:30-0500 Systolic blood pressure 99 mm[Hg] David Caputo Other [facility] Other 04-09-2023 14:57-0400 Body height 170.8 cm Kindling Work Phone: [facility] 04-09-2023 14:57-0400 Body temperature 97.39 [degF] Ma Fliplife Work Phone: [facility] 04-09-2023 14:57-0400 Body weight 50.8 kg Ma Fliplife Work Phone: [facility] 04-09-2023 14:57-0400 Diastolic blood pressure 66 mm[Hg] Ma Sand Work Phone: [facility] 04-09-2023 14:57-0400 Heart rate 93 /min Ma Sand Work Phone: [facility] 04-09-2023 14:57-0400 Respiratory rate 16 /min Ma Sand Work Phone: [facility] 04-09-2023 14:57-0400 SaO2% (BldA) [Mass fraction] 97 % Ma Sand Work Phone: [facility] 04-09-2023 14:57-0400 Systolic blood pressure 108 mm[Hg] Ma Sand Work Phone: [facility] 03-11-2023 10:36-0400 Body height 170.8 cm Zahra Buitrago MD Work Phone: [facility] 03-11-2023 10:36-0400 Body temperature 97.39 [degF] Zahra Buitrago MD Work Phone: [facility] 03-11-2023 10:36-0400 Diastolic blood pressure 81 mm[Hg] Zahra Buitrago MD Work Phone: [facility] 03-11-2023 10:36-0400 Heart rate 83 /min Zahra Buitrago MD Work Phone: [facility] 03-11-2023 10:36-0400 Respiratory rate 18 /min Zahra Buitrago MD Work Phone: [facility] 03-11-2023 10:36-0400 SaO2% (BldA) [Mass fraction] 100 % Zahra Buitrago MD Work Phone: [facility] 03-11-2023 10:36-0400 Systolic blood pressure 118 mm[Hg] Zahra Buitrago MD Work Phone: [facility] 03-05-2023 14:30-0400 Body height 168.91 cm David Caputo Other [facility] Other 03-05-2023 14:30-0400 Body mass index (BMI) [Ratio] 20.67 kg/m2 David Caputo Other [facility] Other 03-05-2023 14:30-0400 Body weight 58.97 kg David Caputo Other [facility] Other 03-05-2023 14:30-0400 Diastolic blood pressure 66 mm[Hg] David Caputo Other [facility] Other 03-05-2023 14:30-0400 Systolic blood pressure 107 mm[Hg] David Caputo Other [facility] Other 02-19-2023 15:22-0400 Body temperature 97.5 [degF] Zahra Buitrago MD Work Phone: [facility] 02-19-2023 15:22-0400 Body weight 50.8 kg Zahra Buitrago MD Work Phone: [facility] 02-19-2023 15:22-0400 Diastolic blood pressure 63 mm[Hg] Zahra Buitrago MD Work Phone: [facility] 02-19-2023 15:22-0400 Heart rate 98 /min Zahra Buitrago MD Work Phone: [facility] 02-19-2023 15:22-0400 Respiratory rate 18 /min Zahra Buitrago MD Work Phone: [facility] 02-19-2023 15:22-0400 SaO2% (BldA) [Mass fraction] 97 % Zahra Buitrago MD Work Phone: [facility] 02-19-2023 15:22-0400 Systolic blood pressure 98 mm[Hg] Zahra Buitrago MD Work Phone: [facility] 02-12-2023 08:05-0400 PAIN LEVEL 0 {score} Dr. Adriane Mccoy [facility] 02-12-2023 04:59-0400 PAIN LEVEL 0 {score} Dr. Adriane Mccoy [facility] 02-12-2023 04:01-0400 Body temperature 98.8 [degF] Dr. Adriane Mccoy [facility] 02-12-2023 04:01-0400 Diastolic blood pressure 72 mm[facility]Hg[facility] 04:01-0400 Heart rate 87 /min Dr. Adriane Mccoy [facility] 02-12-2023 04:01-0400 Respiratory rate 17 /[facility]-12-2023 04:01-0400 Systolic blood pressure 114 mm[Hg] Dr. Adriane Espitia [facility] 02-11-2023 16:27-0400 Body temperature 98.5 [degF] Dr. Adriane Mccoy [facility] 02-11-2023 16:27-0400 Diastolic blood pressure 72 mm[Hg] Dr. Adriane Espitia [facility] 02-11-2023 16:27-0400 Heart rate 74 /min Dr. Adriane Mccoy [facility] 02-11-2023 16:27-0400 Respiratory rate 16 /[facility] 02-11-2023 16:27-0400 Systolic blood pressure 113 mm[Hg] Dr. Adriane Espitia [facility] 02-11-2023 08:28-0400 PAIN LEVEL 0 {score} Dr. Adriane Mccoy [facility] 02-11-2023 05:16-0400 PAIN LEVEL 0 {score} Dr. Adriane Mccoy [facility] 02-11-2023 01:47-0400 Body temperature 98.2 [degF] Dr. Adriane Mccoy [facility] 02-11-2023 01:47-0400 Diastolic blood pressure 76 mm[facility]Hg[facility]-11-2023 01:47-0400 Heart rate 80 /min Dr. Adriane Mccoy [facility] 02-11-2023 01:47-0400 Respiratory rate 17 /[facility] 02-11-2023 01:47-0400 Systolic blood pressure 110 mm[Hg] Dr. Adriane Espitia [facility] 02-10-2023 16:22-0400 Body temperature 98.5 [degF] Dr. Adriane Mccoy [facility] 02-10-2023 16:22-0400 Diastolic blood pressure 73 mm[Hg] Dr. Adriane Espitia [facility] 02-10-2023 16:22-0400 Heart rate 73 /min Dr. Adriane Mccoy [facility] 02-10-2023 16:22-0400 Respiratory rate 20 /[facility] 02-10-2023 16:22-0400 Systolic blood pressure 110 mm[Hg] Dr. Adriane Espitia [facility] 02-10-2023 08:58-0400 PAIN LEVEL 0 {score} Dr. Adriane Mccoy [facility] 02-10-2023 03:21-0400 Body temperature 98.5 [degF] Dr. Adriane Mccoy [facility] 02-10-2023 03:21-0400 Diastolic blood pressure 67 mm[Hg] Dr. Adriane Espitia [facility] 02-10-2023 03:21-0400 Heart rate 76 /min Dr. Adriane Mccoy [facility] 02-10-2023 03:21-0400 Respiratory rate 17 /min Dr. Adriane Mccoy [facility] 02-10-2023 03:21-0400 Systolic blood pressure 104 mm[Hg] Dr. Adriane Espitia [facility] 02-10-2023 02:32-0400 PAIN LEVEL 0 {score} Dr. Adriane Mccyo [facility] 02-09-2023 19:58-0400 PAIN LEVEL 1 {score} Dr. Adriane Mccoy [facility] 02-09-2023 18:46-0400 PAIN LEVEL 3 {score} [facility] 02-09-2023 16:19-0400 Body temperature 98.8 [degF] Dr. Adriane Mccoy [facility] 02-09-2023 16:19-0400 Diastolic blood pressure 71 mm[Hg] Dr. Adriane Espitia [facility] 02-09-2023 16:19-0400 Heart rate 81 /[facility] 02-09-2023 16:19-0400 Respiratory rate 18 /min Dr. Adriane Mccoy [facility] 02-09-2023 16:19-0400 Systolic blood pressure 113 mm[facility]Hg[facility] 02-09-2023 08:24-0400 PAIN LEVEL 0 {score} Dr. Adriane Mccoy [facility] 02-09-2023 02:56-0400 PAIN LEVEL 0 {score} Dr. Adriane Mccoy [facility] 02-08-2023 19:51-0400 Body temperature 97.4 [degF] Dr. Adriane Mccoy [facility] 02-08-2023 19:51-0400 Diastolic blood pressure 77 mm[Hg] Dr. Adriane Espitia [facility] 02-08-2023 19:51-0400 Heart rate 79 /[facility] 02-08-2023 19:51-0400 Respiratory rate 16 /min Dr. Adriaen Mccoy [facility] 02-08-2023 19:51-0400 Systolic blood pressure 117 mm[Hg] Dr. Adriane Espitia [facility] 02-08-2023 13:37-0400 Body weight 60.[address] Adriane Mccoy [facility] 02-08-2023 08:24-0400 PAIN LEVEL 0 {score} Dr. Adriane Mccoy [facility] 02-07-2023 17:47-0400 Body temperature 97.5 [degF] Dr. Adriane Mccoy [facility] 02-07-2023 17:47-0400 Diastolic blood pressure 68 mm[Hg] [facility] 02-07-2023 17:47-0400 Heart rate 83 /min Dr. Adriane Mccoy [facility] 02-07-2023 17:47-0400 Respiratory rate 20 /min Dr. Adriane Mccoy [facility] 02-07-2023 17:47-0400 Systolic blood pressure 119 mm[Hg[facility] 13:59-0400 Body temperature 98.1 [degF] Dr. Adriane Mccoy [facility] 02-07-2023 13:59-0400 Diastolic blood pressure 87 mm[Hg] Dr. Adriane Espitia [facility] 02-07-2023 13:59-0400 Heart rate 77 /min Dr. Adriane Mccoy [facility] 02-07-2023 13:59-0400 Respiratory rate 20 /min Dr. Adriane Mccoy [facility] 02-07-2023 13:59-0400 Systolic blood pressure 146 mm[Hg[facility]-07-[facility] 08:51-0400 PAIN LEVEL 0 {score} Dr. Adriane Mccoy [facility] 02-07-2023 05:11-0400 Body temperature 98 [degF] Dr. Adriane Mccoy [facility] 02-07-2023 05:11-0400 Diastolic blood pressure 72 mm[Hg] Dr. Adriane Espitia [facility] 02-07-2023 05:11-0400 Heart rate 70 /min Dr. Adriane Mccoy [facility] 02-07-2023 05:11-0400 Respiratory rate 16 /min Dr. Adriane Mccoy [facility] 02-07-2023 05:11-0400 Systolic blood pressure 112 mm[Hg] Dr. Adriane Espitia [facility] 02-07-2023 01:10-0400 PAIN LEVEL 0 {score} Dr. Adriane Mccoy [facility] 02-06-2023 18:12-0400 Body temperature 98.2 [degF] Dr. Adriane Mccoy [facility] 02-06-2023 18:12-0400 Diastolic blood pressure 74 mm[Hg[facility] 18:12-0400 Heart rate 72 /min Dr. Adriane Mccoy [facility] 02-06-2023 18:12-0400 Respiratory rate 17 /min Dr. Adriane Mccoy [facility] 02-06-2023 18:12-0400 Systolic blood pressure 116 mm[Hg[facility]-06-[facility]23 17:16-0400 PAIN LEVEL 0 {score} Dr. Adriane Mccoy [facility] 02-06-2023 09:10-0400 PAIN LEVEL 0 {score} Dr. Adriane Mccoy [facility] 02-06-2023 03:23-0400 PAIN LEVEL 0 {score} Dr. Adriane Mccoy [facility] 02-06-2023 01:40-0400 Body temperature 98.7 [degF] Dr. Adriane Mccoy [facility] 02-06-2023 01:40-0400 Diastolic blood pressure 73 mm[Hg[facility] 01:40-0400 Heart rate 83 /min Dr. Adriane Mccoy [facility] 02-06-2023 01:40-0400 Respiratory rate 16 /min Dr. Adriane Lunamir [facility] 02-06-2023 01:40-0400 Systolic blood pressure 121 mm[Hg[facility]-05-2023 18:38-0400 Body temperature 99 [degF] Dr. Adriane Mccoy [facility] 02-05-2023 18:38-0400 Diastolic blood pressure 67 mm[Hg] Dr. Adriane Espitia [facility] 02-05-2023 18:38-0400 Heart rate 81 /min Dr. Adriane Mccoy [facility] 02-05-2023 18:38-0400 Respiratory rate 18 /[facility] 02-05-2023 18:38-0400 Systolic blood pressure 105 mm[Hg] Dr. Adriane Espitia [facility] 02-05-2023 14:45-0400 Body temperature 97.6 [degF] Dr. Adriane Mccoy [facility] 02-05-2023 14:45-0400 Diastolic blood pressure 65 mm[Hg] Dr. Adriane Espitia [facility] 02-05-2023 14:45-0400 Heart rate 64 /min Dr. Adriane Lunamir [facility] 02-05-2023 14:45-0400 Respiratory rate 16 /[facility] 02-05-2023 14:45-0400 Systolic blood pressure 96 mm[Hg[facility] 02-05-2023 08:13-0400 PAIN LEVEL 0 {score} Dr. Adriane Mccoy [facility] 02-05-2023 08:11-0400 PAIN LEVEL 0 {score} [facility]-05-[facility]23 05:35-0400 Body temperature 97.5 [degF] Dr. Adriane Mccoy [facility] 02-05-2023 05:35-0400 Diastolic blood pressure 71 mm[Hg] Dr. Adriane Espitia [facility] 02-05-2023 05:35-0400 Heart rate 73 /[facility] 02-05-2023 05:35-0400 Respiratory rate 17 /[facility] 02-05-2023 05:35-0400 Systolic blood pressure 109 mm[Hg] Dr. Adriane Espitia [facility] 02-05-2023 03:14-0400 PAIN LEVEL 3 {score} [facility] 02-05-2023 02:33-0400 PAIN LEVEL 2 {score} Dr. Adriane Mccoy [facility] 02-04-2023 08:52-0400 PAIN LEVEL 0 {score} Dr. Adriane Mccoy [facility] 02-04-2023 01:24-0400 Body temperature 98.6 [degF] Dr. Adriane Mccoy [facility] 02-04-2023 01:24-0400 Diastolic blood pressure 66 mm[Hg] Dr. Adriane Espitia [facility] 02-04-2023 01:24-0400 Heart rate 81 /min Dr. Adriane Mccoy [facility] 02-04-2023 01:24-0400 Respiratory rate 17 /[facility]-04-[facility]23 01:24-0400 Systolic blood pressure 106 mm[Hg] Dr. Adriane Espitia [facility] 02-03-2023 16:05-0400 Body temperature 98.4 [degF] [facility] 02-03-2023 16:05-0400 Diastolic blood pressure 82 mm[Hg] Dr. Adriane Espitia [facility] 02-03-2023 16:05-0400 Heart rate 82 /min Dr. Adriane Mccoy [facility] 02-03-2023 16:05-0400 Respiratory rate 17 /[facility] 02-03-2023 16:05-0400 Systolic blood pressure 123 mm[Hg] Dr. Adriane Espitia [facility] 02-03-2023 08:39-0400 PAIN LEVEL 0 {score} Dr. Adriane Mccoy [facility] 02-03-2023 00:36-0400 Oxygen saturation in Blood 95 % Dr. Adriane Espitia [facility] 02-03-2023 00:34-0400 Diastolic blood pressure 71 mm[Hg] Dr. Adriane Espitia [facility] 02-03-2023 00:34-0400 Systolic blood pressure 113 mm[Hg[facility] 02-03-2023 00:33-0400 Respiratory rate 17 /min Dr. Adriane Mccoy [facility] 02-03-2023 00:30-0400 Heart rate 62 /min Dr. Adriane Mccoy [facility] 02-03-2023 00:29-0400 Body temperature 98.3 [degF] Dr. Adriane Mccoy [facility] 02-02-2023 23:38-0400 PAIN LEVEL 0 {score} Dr. Adriane Lunamir [facility] 02-02-2023 15:55-0400 Body temperature 97.4 [degF] Dr. Adriane Espitia [facility] 02-02-2023 15:55-0400 Diastolic blood pressure 68 mm[Hg] Dr. Adriane Espitia [facility] 02-02-2023 15:55-0400 Heart rate 80 /min Dr. Adriane Mccoy [facility] 02-02-2023 15:55-0400 Respiratory rate 16 /min Dr. Adriane Mccoy [facility] 02-02-2023 15:55-0400 Systolic blood pressure 105 mm[Hg] Dr. Adriane Espitia [facility] 02-02-2023 12:21-0400 Body temperature 97.6 [degF] Dr. Adriane Mccoy [facility] 02-02-2023 12:21-0400 Diastolic blood pressure 81 mm[Hg] Dr. Adriane Espitia [facility] 02-02-2023 12:21-0400 Heart rate 81 /min Dr. Adriane Mccoy [facility] 02-02-2023 12:21-0400 Respiratory rate 16 /min Dr. Adriane Mccoy [facility] 02-02-2023 12:21-0400 Systolic blood pressure 131 mm[Hg] Dr. Adriane Espitia [facility] 02-02-2023 08:10-0400 PAIN LEVEL 0 {score} Dr. Adriane Mccoy [facility] 02-02-2023 02:12-0400 Body temperature 98.1 [degF] Dr. Adriane Espitia [facility] 02-02-2023 02:12-0400 Diastolic blood pressure 70 mm[Hg] Dr. Adriane Espitia [facility] 02-02-2023 02:12-0400 Heart rate 71 /min Dr. Adriane Mccoy [facility] 02-02-2023 02:12-0400 Respiratory rate 18 /min Dr. Adriane Espitia [facility] 02-02-2023 02:12-0400 Systolic blood pressure 112 mm[Hg] Dr. Adriane Espitia [facility] 02-02-2023 00:43-0400 PAIN LEVEL 0 {score} Dr. Adriane Mccoy [facility] 02-01-2023 22:14-0400 Oxygen saturation in Blood 94 % Dr. Adriane Lunamir [facility] 02-01-2023 22:11-0400 Oxygen saturation in Blood 94 % Dr. Adriane Espitia [facility] 02-01-2023 17:18-0400 PAIN LEVEL 0 {score} Dr. Adriane Mccoy [facility] 02-01-2023 15:46-0400 Body temperature 98.3 [degF] Dr. Adriane Mccoy [facility] 02-01-2023 15:46-0400 Diastolic blood pressure 70 mm[Hg] Dr. Adriane Mccoy [facility] 02-01-2023 15:46-0400 Heart rate 70 /min Dr. Adriane Mccoy [facility] 02-01-2023 15:46-0400 Respiratory rate 19 /min Dr. Adriane Espitia [facility] 02-01-2023 15:46-0400 Systolic blood pressure 109 mm[Hg] Dr. Adriane Lunamir [facility] 02-01-2023 14:56-0400 Body weight 65.[address] Adriane Mccoy [facility] 02-01-2023 14:36-0400 Body temperature 98.4 [degF] Dr. Adriane Mccoy [facility] 02-01-2023 14:36-0400 Diastolic blood pressure 80 mm[Hg[facility]-01-[facility]23 14:36-0400 Heart rate 70 /min Dr. Adriane Mccoy [facility] 02-01-2023 14:36-0400 Respiratory rate 18 /min Dr. Adriane Mccoy [facility] 02-01-2023 14:36-0400 Systolic blood pressure 135 mm[Hg[facility] 02-01-2023 14:26-0400 Body weight 65.[address] Adriane cMcoy [facility] 02-01-2023 09:47-0400 PAIN LEVEL 0 {score} Dr. Adriane Mccoy [facility] 02-01-2023 05:16-0400 Body temperature 97.6 [degF] Dr. Adriane Mccoy [facility] 02-01-2023 05:16-0400 Diastolic blood pressure 71 mm[Hg[facility] 02-01-2023 05:16-0400 Heart rate 75 /min Dr. Adriane Mccoy [facility] 02-01-2023 05:16-0400 Respiratory rate 18 /min Dr. Adriane Mccoy [facility] 02-01-2023 05:16-0400 Systolic blood pressure 117 mm[Hg[facility] 01-31-2023 16:00-0400 Body temperature 98.1 [degF] Dr. Adriane Mccoy [facility] 01-31-2023 16:00-0400 Diastolic blood pressure 71 mm[Hg[facility] 01-31-2023 16:00-0400 Heart rate 76 /min Dr. Adriane Mccoy [facility] 01-31-2023 16:00-0400 Respiratory rate 17 /min Dr. Adriane Mccoy [facility] 01-31-2023 16:00-0400 Systolic blood pressure 109 mm[Hg] [facility] 01-31-2023 08:45-0400 PAIN LEVEL 0 {score} Dr. Adriane Mccoy [facility] 01-30-2023 08:08-0400 PAIN LEVEL 0 {score} [facility] 01-30-2023 01:17-0400 Body temperature 99 [degF] Dr. Adriane Mccoy [facility] 01-30-2023 01:17-0400 Diastolic blood pressure 76 mm[Hg] Dr. Adriane Espitia [facility] 01-30-2023 01:17-0400 Heart rate 86 /min Dr. Adriane Espitia [facility] 01-30-2023 01:17-0400 Respiratory rate 17 /min Dr. Adriane Espitia [facility] 01-30-2023 01:17-0400 Systolic blood pressure 127 mm[Hg] Dr. Adriane Espitia [facility] 01-29-2023 18:43-0400 Body temperature 97.1 [degF] [facility] 01-29-2023 18:43-0400 Diastolic blood pressure 74 mm[Hg] [facility] 01-29-2023 18:43-0400 Heart rate 84 /min Dr. Adriane Mccoy [facility] 01-29-2023 18:43-0400 Respiratory rate 17 /min Dr. Adriane Mccoy [facility] 01-29-2023 18:43-0400 Systolic blood pressure 128 mm[Hg] [facility] 01-29-2023 13:51-0400 Body temperature 98.5 [degF] Dr. Adriane Mccoy [facility] 01-29-2023 13:51-0400 Diastolic blood pressure 76 mm[Hg] Dr. Adriane Espitia [facility] 01-29-2023 13:51-0400 Heart rate 74 /min Dr. Adriane Mccoy [facility] 01-29-2023 13:51-0400 Respiratory rate 17 /min Dr. Adriane Lunamir [facility] 01-29-2023 13:51-0400 Systolic blood pressure 130 mm[Hg] Dr. Adriane Espitia [facility] 01-29-2023 08:20-0400 PAIN LEVEL 0 {score} Dr. Adriane Mccoy [facility] 01-29-2023 05:12-0400 PAIN LEVEL 0 {score} [facility] 01-29-2023 01:28-0400 Body temperature 98.1 [degF] [facility] 01-29-2023 01:28-0400 Diastolic blood pressure 74 mm[Hg] [facility] 01-29-2023 01:28-0400 Heart rate 72 /min Dr. Adriane Mccoy [facility] 01-29-2023 01:28-0400 Respiratory rate 16 /min Dr. Adriane Mccoy [facility] 01-29-2023 01:28-0400 Systolic blood pressure 127 mm[Hg] Dr. Adriane Espitia [facility] 01-28-2023 19:25-0400 Body temperature 98.2 [degF] Dr. Adriane Lunamir [facility] 01-28-2023 19:25-0400 Diastolic blood pressure 75 mm[Hg] Dr. Adriane Espitia [facility] 01-28-2023 19:25-0400 Heart rate 75 /min Dr. Adriane Mccoy [facility] 01-28-2023 19:25-0400 Respiratory rate 17 /min Dr. Adriane Lunamir [facility] 01-28-2023 19:25-0400 Systolic blood pressure 121 mm[Hg] Dr. Adriane Espitia [facility] 01-28-2023 11:56-0400 Body temperature 97.4 [degF] Dr. Adriane Lunamir [facility] 01-28-2023 11:56-0400 Diastolic blood pressure 80 mm[Hg] Dr. Adriane Espitia [facility] 01-28-2023 11:56-0400 Heart rate 88 /[facility] 01-28-2023 11:56-0400 Respiratory rate 21 /min Dr. Adriane Espitia [facility] 01-28-2023 11:56-0400 Systolic blood pressure 124 mm[Hg] Dr. Adriane Espitia [facility] 01-28-2023 08:31-0400 PAIN LEVEL 0 {score} [facility] 01-28-2023 04:36-0400 PAIN LEVEL 0 {score} Dr. Adriane Mccoy [facility] 01-28-2023 03:39-0400 Body temperature 98.3 [degF] Dr. Adriane Mccoy [facility] 01-28-2023 03:39-0400 Diastolic blood pressure 70 mm[Hg] [facility] 01-28-2023 03:39-0400 Heart rate 81 /min Dr. Adriane Mccoy [facility] 01-28-2023 03:39-0400 Respiratory rate 16 /min Dr. Adriane Mccoy [facility] 01-28-2023 03:39-0400 Systolic blood pressure 120 mm[Hg] Dr. Adriane Espitia [facility] 01-27-2023 16:03-0400 Body temperature 98.5 [degF] Dr. Adriane Mccoy [facility] 01-27-2023 16:03-0400 Diastolic blood pressure 58 mm[Hg] [facility] 01-27-2023 16:03-0400 Heart rate 77 /min Dr. Adriane Mccoy [facility] 01-27-2023 16:03-0400 Respiratory rate 17 /min Dr. Adriane Mccoy [facility] 01-27-2023 16:03-0400 Systolic blood pressure 113 mm[Hg[facility] 01-27-2023 12:20-0400 Body temperature 98.1 [degF] Dr. Adriane Mccoy [facility] 01-27-2023 12:20-0400 Diastolic blood pressure 71 mm[Hg[facility] 01-27-2023 12:20-0400 Heart rate 84 /min Dr. Adriane Mccoy [facility] 01-27-2023 12:20-0400 Respiratory rate 19 /min Dr. Adriane Mccoy [facility] 01-27-2023 12:20-0400 Systolic blood pressure 121 mm[Hg] Dr. Adriane Espitia [facility] 01-27-2023 11:45-0400 Body weight 64.[address] Adriane Mccoy [facility] 01-27-2023 08:25-0400 PAIN LEVEL 0 {score} Dr. Adriane Mccoy [facility] 01-27-2023 03:46-0400 Body temperature 98.4 [degF] Dr. Adriane Mccoy [facility] 01-27-2023 03:46-0400 Diastolic blood pressure 74 mm[Hg] Dr. Adriane Espitia [facility] 01-27-2023 03:46-0400 Heart rate 76 /[facility] 01-27-2023 03:46-0400 Respiratory rate 16 /min Dr. Adriane Mccoy [facility] 01-27-2023 03:46-0400 Systolic blood pressure 115 mm[Hg] Dr. Adriane Espitia [facility] 01-26-2023 23:42-0400 PAIN LEVEL 0 {score} Dr. Adriane Mccoy [facility] 01-26-2023 15:51-0400 Body temperature 98.3 [degF] Dr. Adriane Mccoy [facility] 01-26-2023 15:51-0400 Diastolic blood pressure 73 mm[Hg[facility] 01-26-2023 15:51-0400 Heart rate 80 /min Dr. Adriane Mccoy [facility] 01-26-2023 15:51-0400 Respiratory rate 19 /min Dr. Adriane Mccoy [facility] 01-26-2023 15:51-0400 Systolic blood pressure 115 mm[Hg[facility] 01-26-2023 08:18-0400 PAIN LEVEL 0 {score} Dr. Adriane Mccoy [facility] 01-25-2023 22:35-0400 Body weight 63.[address] Adriane Mccoy [facility] 01-25-2023 19:57-0400 Body weight 63.[address] Adriane Mccoy [facility] 01-25-2023 16:56-0400 Body temperature 97.6 [degF] Dr. Adriane Mccoy [facility] 01-25-2023 16:56-0400 Diastolic blood pressure 72 mm[Hg] Dr. Adriane Espitia [facility] 01-25-2023 16:56-0400 Heart rate 75 /min Dr. Adriane Mccoy [facility] 01-25-2023 16:56-0400 Oxygen saturation in Blood 95 % Dr. Adriane Espitia [facility] 01-25-2023 16:56-0400 Respiratory rate 18 /min Dr. Adriane Mccoy [facility] 01-25-2023 16:56-0400 Systolic blood pressure 130 mm[Hg[facility] 01-25-2023 11:33-0400 Body temperature 97.1 [degF] Dr. Adriane Mccoy [facility] 01-25-2023 11:33-0400 Diastolic blood pressure 81 mm[Hg] Dr. Adriane Mccoy [facility] 01-25-2023 11:33-0400 Heart rate 71 /min Dr. Adriane Mccoy [facility] 01-25-2023 11:33-0400 Respiratory rate 16 /min Dr. Adriane Mccoy [facility] 01-25-2023 11:33-0400 Systolic blood pressure 133 mm[Hg] Dr. Adriane Espitia [facility] 01-25-2023 08:43-0400 PAIN LEVEL 0 {score} Dr. Adriane Mccoy [facility] 01-24-2023 19:59-0400 Body weight 63.[address] Adriane Mccoy [facility] 01-24-2023 17:41-0400 Body temperature 97.1 [degF] Dr. Adriane Mccoy [facility] 01-24-2023 17:41-0400 Diastolic blood pressure 73 mm[Hg[facility] 01-24-2023 17:41-0400 Heart rate 60 /min Dr. Adriane Mccoy [facility] 01-24-2023 17:41-0400 Oxygen saturation in Blood 97 % Dr. Adriane Espitia [facility] 01-24-2023 17:41-0400 Respiratory rate 20 /min Dr. Adriane Mccoy [facility] 01-24-2023 17:41-0400 Systolic blood pressure 141 mm[Hg] Dr. Adriane Espitia [facility] 01-24-2023 13:57-0400 Body weight 65.[address] Adriane Mccoy [facility] 01-24-2023 12:35-0400 Body temperature 98.6 [degF] Dr. Adriane Mccoy [facility] 01-24-2023 12:35-0400 Diastolic blood pressure 72 mm[Hg] Dr. Adriane Espitia [facility] 01-24-2023 12:35-0400 Heart rate 71 /[facility] 01-24-2023 12:35-0400 Respiratory rate 17 /min Dr. Adriane Mccoy [facility] 01-24-2023 12:35-0400 Systolic blood pressure 131 mm[Hg] Dr. Adriane Espitia [facility] 01-24-2023 08:31-0400 PAIN LEVEL 0 {score} [facility] 01-24-2023 01:01-0400 Body temperature 97.5 [degF] Dr. Adriane Mccoy [facility] 01-24-2023 01:01-0400 Diastolic blood pressure 73 mm[Hg] Dr. Adriane Espitia [facility] 01-24-2023 01:01-0400 Heart rate 61 /min Dr. Adriane Mccoy [facility] 01-24-2023 01:01-0400 Respiratory rate 16 /[facility] 01-24-2023 01:01-0400 Systolic blood pressure 119 mm[Hg[facility] 01-23-2023 23:11-0400 PAIN LEVEL 0 {score} Dr. Adriane Mccoy [facility] 01-23-2023 19:27-0400 Body weight 64.[address] Adriane Mccoy [facility] 01-23-2023 18:03-0400 PAIN LEVEL 0 {score} Dr. Adriane Mccoy [facility] 01-23-2023 17:38-0400 Oxygen saturation in Blood 96 % Dr. Adriane Espitia [facility] 01-23-2023 17:38-0400 PAIN LEVEL 0 {score} [facility] 01-23-2023 16:19-0400 Body temperature 97.6 [degF] Dr. Adriane Mccoy [facility] 01-23-2023 16:19-0400 Diastolic blood pressure 73 mm[Hg] Dr. dAriane Espitai [facility] 01-23-2023 16:19-0400 Heart rate 70 /[facility] 01-23-2023 16:19-0400 Respiratory rate 16 /min Dr. Adriane Mccoy [facility] 01-23-2023 16:19-0400 Systolic blood pressure 119 mm[Hg] Dr. Adriane Espitia [facility] 01-01-2023 14:30-0400 Body height 168.91 cm David Caputo Other [employer] Other 01-01-2023 14:30-0400 Body mass index (BMI) [Ratio] 20.67 kg/m2 David Caputo Other [facility] 01-01-2023 14:30-0400 Body weight 58.97 kg David Caputo Other [facility] 01-01-2023 14:30-0400 Diastolic blood pressure 59 mm[Hg] David Caputo Other [facility] 01-01-2023 14:30-0400 Systolic blood pressure 87 mm[Hg] David Caputo Other [facility] 12-26-2022 16:02-0400 Body temperature 97.9 [degF] Ma Sand Work Phone: [facility] 12-26-2022 16:02-0400 Diastolic blood pressure 58 mm[Hg] Ma Sand Work Phone: [facility] 12-26-2022 16:02-0400 Heart rate 76 /min Ma Sand Work Phone: [facility] 12-26-2022 16:02-0400 Respiratory rate 16 /min Ma Sand Work Phone: [facility] 12-26-2022 16:02-0400 SaO2% (BldA) [Mass fraction] 100 % Ma Sand Work Phone: [facility] 12-26-2022 16:02-0400 Systolic blood pressure 89 mm[Hg] Ma Sand Work Phone: [facility] 12-04-2022 14:30-0400 Body height 168.91 cm David Caputo Other [facility] 12-04-2022 14:30-0400 Body mass index (BMI) [Ratio] 20.67 kg/m2 David Caputo Other [facility] 12-04-2022 14:30-0400 Body weight 58.97 kg David Caputo Other [facility] 12-04-2022 14:30-0400 Diastolic blood pressure 68 mm[Hg] David Caputo Other [facility] 12-04-2022 14:30-0400 SaO2% (BldA) [Mass fraction] 93 % David Caputo Other [facility] 12-04-2022 14:30-0400 Systolic blood pressure 109 mm[Hg] David Caputo Other [facility] 11-28-2022 15:14-0400 Body height 170.8 cm Zahra Buitrago MD Work Phone: [facility] 11-28-2022 15:14-0400 Body temperature 97.2 [degF] Zahra Buitrago MD Work Phone: [facility] 11-28-2022 15:14-0400 Diastolic blood pressure 63 mm[Hg] Zahra Buitrago MD [facility]: [facility] [facility] 11-28-2022 15:14-0400 Heart rate 74 /min Zahra Buitrago MD Work Phone: [facility] 11-28-2022 15:14-0400 Respiratory rate 18 /min Zahra Buitrago MD Work Phone: [facility] 11-28-2022 15:14-0400 SaO2% (BldA) [Mass fraction] 98 % Zahra Buitrago MD Work Phone: [facility] 11-28-2022 15:14-0400 Systolic blood pressure 92 mm[Hg] Zahra Buitrago MD Work Phone: [facility] 10-31-2022 15:31-0400 Body height 170.8 cm Ma Sand Work Phone: [facility] 10-31-2022 15:31-0400 Body temperature 97.59 [degF] Ma Sand Work Phone: [facility] 10-31-2022 15:31-0400 Body weight 64.41 kg Ma Sand Work Phone: [facility] 10-31-2022 15:31-0400 Diastolic blood pressure 63 mm[Hg] Ma Sand Work Phone: [facility] 10-31-2022 15:31-0400 Heart rate 73 /min Ma Sand Work Phone: [facility] 10-31-2022 15:31-0400 Respiratory rate 16 /min Ma Sand Work Phone: [facility] 10-31-2022 15:31-0400 SaO2% (BldA) [Mass fraction] 98 % Ma Sand Work Phone: [facility] 10-31-2022 15:31-0400 Systolic blood pressure 115 mm[Hg] Ma Sand Work Phone: [facility] 09-05-2022 14:17-0500 Body temperature 97.5 [degF] Ma Sand Work Phone: [facility] 09-05-2022 14:17-0500 Diastolic blood pressure 67 mm[Hg] Ma Sand Work Phone: [facility] 09-05-2022 14:17-0500 Heart rate 65 /min Ma Sand Work Phone: [facility] 09-05-2022 14:17-0500 Respiratory rate 18 /min Ma Sand Work Phone: [facility] 09-05-2022 14:17-0500 SaO2% (BldA) [Mass fraction] 97 % Lamont Hart Work Phone: [facility] 09-05-2022 14:17-0500 Systolic blood pressure 119 mm[Hg] Lamont Hart Work Phone: [facility] 08-08-2022 14:39-0500 Body temperature 97.9 [degF] Zahra Buitrago MD Work Phone: [facility] 08-08-2022 14:39-0500 Body weight 64.41 kg Zahra Buitrago MD Work Phone: [facility] 08-08-2022 14:39-0500 Diastolic blood pressure 76 mm[Hg] Zahra Buitrago MD Work Phone: [facility] 08-08-2022 14:39-0500 Heart rate 88 /min Zahra Buitrago MD Work Phone: [facility] 08-08-2022 14:39-0500 Respiratory rate 40 /min Zahra Buitrago MD Work Phone: [facility] 08-08-2022 14:39-0500 SaO2% (BldA) [Mass fraction] 94 % Zahra Buitrago MD Work Phone: [facility] 08-08-2022 14:39-0500 Systolic blood pressure 111 mm[Hg] Zahra Buitrago MD Work Phone: [facility] 07-17-2022 15:45-0500 Body height 168.91 cm David Caputo Other [facility] Other 07-17-2022 15:45-0500 Body mass index (BMI) [Ratio] 22.57 kg/m2 David Caputo Other [facility] Other 07-17-2022 15:45-0500 Body weight 64.41 kg David Caputo Other [facility] Other 07-17-2022 15:45-0500 Diastolic blood pressure 58 mm[Hg] David Caputo Other [facility] Other 07-17-2022 15:45-0500 SaO2% (BldA) [Mass fraction] 99 % David Caputo Other [facility] Other 07-17-2022 15:45-0500 Systolic blood pressure 102 mm[Hg] David Caputo Other [facility] Other 07-03-2022 13:55-0500 Body height 170.8 cm Zahra Buitrago MD Work Phone: [facility] 07-03-2022 13:55-0500 Body temperature 97.39 [degF] Zahra Buitrago MD Work Phone: [facility] 07-03-2022 13:55-0500 Body weight 67.31 kg Zahra Buitrago MD Work Phone: [facility] 07-03-2022 13:55-0500 Diastolic blood pressure 82 mm[Hg] Zahra Buitrago MD Work Phone: [facility] 07-03-2022 13:55-0500 Heart rate 77 /min Zahra Buitrago MD Work Phone: [facility] 07-03-2022 13:55-0500 Respiratory rate 16 /min Zarha Buitrago MD Work Phone: [facility] 07-03-2022 13:55-0500 SaO2% (BldA) [Mass fraction] 100 % Zahra Buitrago MD Work Phone: [facility] 07-03-2022 13:55-0500 Systolic blood pressure 126 mm[Hg] Zahra Buitrago MD Work Phone: [facility] 06-06-2022 13:32-0500 Body height 170.8 cm Zahra Buitrago MD Work Phone: [facility] 06-06-2022 13:32-0500 Body temperature 97.11 [degF] Zahra Buitrago MD Work Phone: [facility] 06-06-2022 13:32-0500 Body weight 65.77 kg Zahra Buitrago MD Work Phone: [facility] 06-06-2022 13:32-0500 Diastolic blood pressure 60 mm[Hg] Zahra Buitrago MD Work Phone: [facility] 06-06-2022 13:32-0500 Heart rate 66 /min Zahra Buitrago MD Work Phone: [facility] 06-06-2022 13:32-0500 Respiratory rate 24 /min Zahra Buitrago MD Work Phone: [facility] 06-06-2022 13:32-0500 SaO2% (BldA) [Mass fraction] 100 % Zahra Buitrago MD Work Phone: [facility] 06-06-2022 13:32-0500 Systolic blood pressure 109 mm[Hg] Zahra Buitrago MD Work Phone: [facility] 05-08-2022 13:45-0500 Body height 170.8 cm Zahra Buitrago MD Work Phone: [facility] 05-08-2022 13:45-0500 Body temperature 97.81 [degF] Zahra Buitrago MD Work Phone: [facility] 05-08-2022 13:45-0500 Body weight 62.41 kg Zahra Buitrago MD Work Phone: [facility] 05-08-2022 13:45-0500 Diastolic blood pressure 58 mm[Hg] Zahra Buitrago MD Work Phone: [facility] 05-08-2022 13:45-0500 Heart rate 63 /min Zahra Buitrago MD Work Phone: [facility] 05-08-2022 13:45-0500 Respiratory rate 16 /min Zahra Buitrago MD Work Phone: [facility] 05-08-2022 13:45-0500 SaO2% (BldA) [Mass fraction] 97 % Zahra Buitrago MD Work Phone: [facility] 05-08-2022 13:45-0500 Systolic blood pressure 102 mm[Hg] Zahra Buitrago MD Work Phone: [facility] 04-10-2022 12:47-0400 Body height 170.8 cm Zahra Buitrago MD Work Phone: [facility] 04-10-2022 12:47-0400 Body temperature 97.7 [degF] Zahra Buitrago MD Work Phone: [facility] 04-10-2022 12:47-0400 Body weight 66.04 kg Zahra Buitrago MD Work Phone: [facility] 04-10-2022 12:47-0400 Diastolic blood pressure 70 mm[Hg] Zahra Buitrago MD Work Phone: [facility] 04-10-2022 12:47-0400 Heart rate 60 /min Zahra Buitrago MD Work Phone: [facility] 04-10-2022 12:47-0400 Respiratory rate 16 /min Zahra Buitrago MD Work Phone: [facility] 04-10-2022 12:47-0400 SaO2% (BldA) [Mass fraction] 99 % Zahra Buitrago MD Work Phone: [facility] 04-10-2022 12:47-0400 Systolic blood pressure 125 mm[Hg] Zahra Buitrago MD Work Phone: [facility] 03-13-2022 12:57-0400 Body height 170.8 cm Rola Gordon APRN.SOCIAL WORKER Work Phone: [facility] 03-13-2022 12:57-0400 Body temperature 97.11 [degF] Rola Gordon APRN.SOCIAL WORKER Work Phone: [facility] 03-13-2022 12:57-0400 Body weight 65.77 kg Rola Gordon [employer] SALES REPRESENTATIVE.SOCIAL WORKER Work Phone: [facility] 03-13-2022 12:57-0400 Diastolic blood pressure 68 mm[Hg] Rola Gordon [employer]IES SALES REPRESENTATIVE.SOCIAL WORKER Work Phone: [facility] 03-13-2022 12:57-0400 Heart rate 74 /min Rola Gordon APRN.SOCIAL WORKER Work Phone: [facility] 03-13-2022 12:57-0400 Respiratory rate 20 /min Rola Gordon APRN.SOCIAL WORKER Work Phone: [facility] 03-13-2022 12:57-0400 SaO2% (BldA) [Mass fraction] 100 % Rola Gordon [employer] SALES REPRESENTATIVE.SOCIAL WORKER Work Phone: [facility] 03-13-2022 12:57-0400 Systolic blood pressure 119 mm[Hg] Rola Gordon [employer]IES SALES REPRESENTATIVE.SOCIAL WORKER Work Phone: [facility] 02-13-2022 14:09-0400 Body height 170.8 cm Zahra Buitrago MD Work Phone: [facility] 02-13-2022 14:09-0400 Body temperature 97.81 [degF] Zahra Buitrago MD Work Phone: [facility] 02-13-2022 14:09-0400 Body weight 65.14 kg Zahra Buitrago MD Work Phone: [facility] 02-13-2022 14:09-0400 Diastolic blood pressure 74 mm[Hg] Zahra Buitrago MD Work Phone: [facility] 02-13-2022 14:09-0400 Heart rate 62 /min Zahra Buitrago MD Work Phone: [facility] 02-13-2022 14:09-0400 Respiratory rate 16 /min Zahra Buitrago MD Work Phone: [facility] 02-13-2022 14:09-0400 SaO2% (BldA) [Mass fraction] 95 % Zahra Buitrago MD Work Phone: [facility] 02-13-2022 14:09-0400 Systolic blood pressure 108 mm[Hg] Zahra Buitrago MD Work Phone: [facility] 02-04-2022 13:50-0400 63.6 1 David Caputo Work Phone: [facility] DO Work Phone: Comment on above: [facility] 01-16-2022 14:00-0400 Body height 172.72 cm Nate Hanson Other [facility] Other 01-16-2022 14:00-0400 Body mass index (BMI) [Ratio] 21.28 kg/m2 Nate Hanson Other [facility] Other 01-16-2022 14:00-0400 Body weight 63.5 kg Nate Hanson Other [facility] Other 12-05-2021 14:57-0400 Body height 170.8 cm Zahra Buitrago MD Work Phone: [facility] 12-05-2021 14:57-0400 Body temperature 97.39 [degF] Zahra Buitrago MD Work Phone: [facility] 12-05-2021 14:57-0400 Body weight 73.48 kg Zahra Buitrago MD Work Phone: [facility] 12-05-2021 14:57-0400 Diastolic blood pressure 85 mm[Hg] Zahra Buitrago MD Work Phone: [facility] 12-05-2021 14:57-0400 Heart rate 80 /min Zahra Buitrago MD Work Phone: [facility] 12-05-2021 14:57-0400 Respiratory rate 16 /min Zahra Buitrago MD Work Phone: [facility] 12-05-2021 14:57-0400 SaO2% (BldA) [Mass fraction] 97 % Zahra Buitrago MD Work Phone: [facility] 12-05-2021 14:57-0400 Systolic blood pressure 123 mm[Hg] Zahra Buitrago MD Work Phone: [facility] Encounters Encounter Date Encounter Type Care Provider Facility Start: 07-17-2023 Orders Only Rick vanessa DO Work Phone: [facility] Comment on above: Iron deficiency anem ia, unspecified iron deficiency anemia type (Primary Dx); History of gastric cancer; Rectal bleeding Start: 07-14-2023 End: 07-14-2023 ambulatory David Caputo Other [facility] Other Start: 07-14-2023 Telephone encounter David Caputo [facility] Start: 06-30-2023 End: 06-30-2023 ambulatory David Caputo Other [facility] Other Start: 06-30-2023 Telephone encounter David Caputo [facility] Start: 06-04-2023 End: 06-04-2023 ambulatory David Caputo Other [facility] Other Start: 06-04-2023 Office outpatient vi sit 25 minutes David Caputo [facility] Start: 05-22-2023 End: 05-22-2023 ambulatory David Caputo Other [facility] Other Start: 05-22-2023 Telephone encounter David Caputo [facility] Start: 05-19-2023 End: 05-19-2023 ambulatory David Caputo Other [facility] Other Start: 05-19-2023 Telephone encounter David Caputo [facility] Start: 05-06-2023 End: 05-06-2023 ambulatory David Caputo Other [facility] Other Start: 05-06-2023 Telephone encounter David Caputo [facility] Start: 04-14-2023 End: 04-14-2023 ambulatory David Caputo Other [facility] Other Start: 04-14-2023 Telephone encounter David Caputo [facility] Start: 04-09-2023 End: 04-09-2023 ambulatory DAVID Meza HARSHAL Facility:[facility] Start: 04-09-2023 End: 04-09-2023 Nursing evaluation of patient and report Ma Nurse Zelalem Hart Work Phone: Hematology/Oncology Comment on above: Macrocytosis (Primar y Dx); Abnormal weight loss; Adenocarcinoma (HCC); Cancer of ampulla of Vater (HCC) Start: 04-07-2023 End: 04-07-2023 ambulatory David Caputo Other [facility] Other Start: 04-07-2023 Telephone encounter David Caputo [facility] Start: 03-31-2023 End: 03-31-2023 ambulatory David Caputo Other [facility] Other Start: 03-31-2023 Telephone encounter David Caputo [facility] Start: 03-30-2023 Refill Zahra ibrahim MD Work Phone: Hematology/Oncology Comment on above: Refill Request Start: 03-20-2023 End: 03-20-2023 ambulatory David Caputo Other [facility] Other Start: 03-20-2023 Telephone encounter David Caputo [facility] Start: 03-19-2023 End: 03-19-2023 ambulatory David Caputo Other [facility] Other Start: 03-19-2023 Telephone encounter David Caputo [facility] Start: 03-16-2023 End: 03-16-2023 ambulatory David Caputo Other [facility] Other Start: 03-16-2023 Telephone encounter David Harshal [facility] Start: 03-11-2023 Telephone encounter Zahra foster MD Work Phone: Cancer [facility] Comment on above: Future Appointment; Results Start: 03-11-2023 End: 03-11-2023 ambulatory DAVID CAPUTO Facility:[facility] Start: 03-11-2023 End: 03-11-2023 Nursing evaluation of patient and report Mt Nurse Zelalem Hart Work Phone: Hematology/Oncology Comment [...] type Start: 03-11-2023 End: 03-11-2023 ambulatory DAVID Derrick CAPUTO Facility:[facility] Start: 03-10-2023 End: 03-10-2023 ambulatory David Caputo Other [facility] Other Start: 03-10-2023 Telephone encounter David Harshal [facility] Start: 03-09-2023 End: 03-09-2023 ambulatory David Caputo Other [facility] Other Start: 03-09-2023 Telephone encounter David Caputo [facility] Start: 03-05-2023 End: 03-05-2023 ambulatory David Caputo Other [facility] Other Start: 03-05-2023 Office outpatient vi sit 15 minutes David Caputo [facility] Start: 03-05-2023 Telephone encounter Zahra foster [...] Start: 02-19-2023 End: 02-20-2023 ambulatory DAVID CAPUTO [facility] Other Start: 02-19-2023 Telephone encounter David Caputo [facility] Start: 02-17-2023 Telephone encounter Zahra foster MD Work Phone: Hematology/Oncology Comment on above: Lab Orders Start: 02-13-2023 End: 02-13-2023 ambulatory David Caputo Other [facility] Other Start: 02-13-2023 Telephone encounter David Caputo [facility] Start: 02-10-2023 End: 02-10-2023 ambulatory David Caputo Facility:[facility] Start: 02-10-2023 End: 02-10-2023 Patient encounter procedure MD David Caputo Work Phone: [facility] Start: 01-27-2023 End: 01-27-2023 ambulatory Adriane Espitia Facility:[facility] Start: 01-27-2023 End: 01-27-2023 ambulatory MD David Caputo Work Phone: [facility] Work Phone: Start: 01-27-2023 End: 01-27-2023 Patient encounter procedure MD David Caputo Work Phone: [facility] Start: 01-21-2023 Telephone encounter Susan kurtz RN Work Phone: Hematology/Oncology Comment on above: Hospital Admission Start: 01-14-2023 End: 01-14-2023 ambulatory David Caputo Other [facility] Other Start: 01-14-2023 Telephone encounter David Caputo [facility] Start: 01-13-2023 Telephone encounter Cassandra Longoria Hematology/Oncology Comment on above: Results; Appointment Start: 01-12-2023 End: 01-12-2023 ambulatory David Caputo Other [facility] Other Start: 01-12-2023 Telephone encounter David Caputo [facility] Start: 01-01-2023 End: 01-01-2023 ambulatory David Caputo Other [facility] Other Start: 01-01-2023 Office outpatient vi sit 15 minutes David Caputo [facility] Start: 12-26-2022 End: 12-26-2022 ambulatory DAVID CAPUTO Facility:[facility] Start: 12-26-2022 End: 12-26-2022 Nursing evaluation of patient and report Lamont Hart Work Phone: Hematology/Oncology Comment on above: Macrocytosis (Primar y Dx); Abnormal weight loss; Adenocarcinoma (HCC); Cancer of ampulla of Vater (HCC) Start: 12-08-2022 End: 12-08-2022 ambulatory David Caputo Other [facility] Other Start: 12-08-2022 Telephone encounter David Caputo [facility] Start: 12-04-2022 End: 12-04-2022 ambulatory David Harshal Other [facility] Other Start: 12-04-2022 Office outpatient vi sit 15 minutes David Harshal [facility] Start: 11-28-2022 End: 11-28-2022 ambulatory DAVID CAPUTO Facility:[facility] Start: 11-28-2022 End: 11-28-2022 Nursing evaluation of patient and report Lamont Nurse Zelalem Hart Work Phone: Hematology/Oncology Comment [...] (HCC) Start: 11-27-2022 End: 11-27-2022 ambulatory David Harshal Other [facility] Other Start: 11-27-2022 Telephone encounter David Harshal [facility] Start: 11-21-2022 End: 11-21-2022 ambulatory David Harshal Other [facility] Other Start: 11-21-2022 Telephone encounter David Harshal [facility] Start: 11-04-2022 End: 11-04-2022 ambulatory David Harshal Other [facility] Other Start: 11-04-2022 Telephone encounter David Harshal [facility] Start: 10-31-2022 End: 10-31-2022 ambulatory DAVID CAPUTO Facility:[facility] Start: 10-31-2022 End: 10-31-2022 Nursing evaluation of patient and report Lamont Hart Work Phone: Hematology/Oncology Comment on above: Macrocytosis (Primar y Dx); Abnormal weight loss; Adenocarcinoma (HCC); Cancer of ampulla of Vater (HCC) Start: 10-28-2022 End: 10-28-2022 ambulatory Zahra Buitrago MD Work Phone: [facility] Other Comment on above: Refill Request Start: 10-28-2022 Telephone encounter David Caputo [facility] Start: 10-03-2022 End: 10-04-2022 ambulatory DAVID CAPUTO Facility:[facility] Start: 10-03-2022 End: 10-03-2022 Nursing evaluation of patient and report Lamont Hart Work Phone: Hematology/Oncology Comment on above: Macrocytosis (Primar y Dx); Abnormal weight loss; Adenocarcinoma (HCC); Cancer of ampulla of Vater (HCC) Start: 09-29-2022 End: 09-29-2022 ambulatory David Caputo Other [facility] Other Start: 09-29-2022 Telephone encounter David Caputo [facility] Start: 09-17-2022 End: 09-17-2022 ambulatory David Caputo Other [facility] Other Start: 09-17-2022 Telephone encounter David Caputo [facility] Start: 09-16-[address] David Caputo Facility: Start: 09-08-2022 End: 09-08-2022 ambulatory David Caputo Other [facility] Other Start: 09-08-2022 Telephone encounter David Caputo [facility] Start: 09-05-2022 End: 09-06-2022 ambulatory DAVID CAPUTO Facility:[facility] Start: 09-05-2022 End: 09-05-2022 Nursing evaluation of patient and report Lamont Hart Work Phone: Hematology/Oncology Comment on above: Macrocytosis (Primar y Dx); Abnormal weight loss; Adenocarcinoma (HCC); Cancer of ampulla of Vater (HCC) Start: 08-19-2022 Refill Zahra ibrahim MD Work Phone: Hematology/Oncology Comment on above: Refill Request Start: 08-11-2022 End: 08-11-2022 ambulatory David Caputo Other [facility] Other Start: 08-11-2022 Telephone encounter David Caputo [facility] Start: 08-08-2022 End: 08-09-2022 ambulatory DAVID CAPUTO Facility:[facility] Start: 08-08-2022 End: 08-08-2022 Office outpatient visit [...] 07-24-2022 End: 07-24-2022 ambulatory David Caputo Other [facility] Other Start: 07-24-2022 Telephone encounter David Caputo [facility] Start: 07-17-2022 End: 07-17-2022 ambulatory David Caputo Other [facility] Other Start: 07-17-2022 Office outpatient vi sit 25 minutes David Caputo [facility] Start: 07-11-2022 End: 07-12-[address] CORY POOL Facility: Start: 07-07-2022 Telephone encounter Magalys Cruz RN Hematology/Oncology Comment on above: Results Start: 07-03-2022 End: 07-03-2022 Nursing evaluation of patient and report Lamont [...] 07-03-2022 End: 07-03-2022 Patient encounter procedure Zahra Buirtago MD Work Phone: [facility] Start: 06-13-2022 Rx Renewal David Caputo Work Phone: [facility] DO Work Phone: Start: 06-06-2022 End: 06-06-2022 ambulatory DAVID CAPUTO Facility:[facility] Start: 06-06-2022 End: 06-06-2022 Nursing evaluation of [...] encounter procedure Zahra Buitrago MD Work Phone: [facility] Start: 05-19-2022 Hillary Gordon APRN.CNP Work Phone: Hematology/Oncology Comment on above: Refill Request Start: 05-13-2022 Adult health examination David Caputo Other [facility] Other Start: 05-12-2022 End: 05-13-[address] DAVID CAPUTO Facility: Start: 05-08-2022 End: 05-08-2022 Nursing evaluation of patient and report Ma [...] Start: 04-10-2022 End: 04-10-2022 ambulatory Chair Niall Phelan Work Phone: Hematology/Oncology Comment on above: Macrocytosis [...] Zahra Buitrago MD Work Phone: [facility] Start: 04-09-2022 Telephone encounter Zahra foster MD Work Phone: Hematology/Oncology Comment on above: Lab Orders Start: 03-27-2022 Refill Imelda walker [facility] Work Phone: Hematology/Oncology Comment on above: Refill Request Start: 03-13-2022 Telephone encounter Financial Navigator Zelalem Work Phone: Hematology/Oncology Comment on above: Benefits Investigati on Refill Request Start: 03-13-2022 End: 03-13-2022 ambulatory Rola Gordon APRN.SOCIAL WORKER Work Phone: Hematology/Oncology Comment on above: Cancer [...] End: 03-13-2022 Patient encounter procedure Rola Gordon APRN.CNP Work Phone: [facility] Start: 03-10-2022 Rx Renewal David Caputo Work Phone: [facility] DO Work Phone: Start: 03-06-2022 Rx Renewal David E Caputo Work Phone: [facility] DO Work Phone: Start: 02-28-2022 Social Work Mackenzie AVILES Hematolo gy/Oncology Start: 02-17-2022 Telephone encounter Cassandra Longoria Hematology/Oncology Comment on above: Refill Request Start: 02-13-2022 End: 02-13-2022 Nursing evaluation of patient and report Ma Nurse Zelalem [facility] Work Phone: Hematology/Oncology Comment on above: Macrocytosis [...] 02-04-2022 End: 02-05-[address] IRVING ABREU Facility:[facility] Start: 01-16-2022 End: 01-16-2022 ambulatory Nate Hanson Other [facility] Other Start: 01-16-2022 Office outpatient vi sit 25 minutes Nate Hanson [facility] Start: 01-09-[address] Irving Abreu [...] Zahra Buitrago MD Work Phone: [facility] Start: 12-03-2021 Chart abstracting Zahra zapata MD Work Phone: Hematology/Oncology Start: 11-26-2021 End: 11-27-[address] DAVID CAPUTO Facility:[facility] Start: 11-12-2021 End: 11-13-[address] DAVID CAPUTO Facility:[facility] Start: 10-10-2021 End: 10-11-[address] DAVID CAPUTO Facility:[facility] Start: 07-02-2021 Rx Renewal Irving Garcia n DO Work Phone: [facility] DO Work Phone: Start: 09-30-2017 End: 10-09-2017 Evaluation and management of inpatient MICHAEL TOVAR [facility] Start: 09-28-2017 Ambulatory MAU DUFFY Facility: [id number] Start: 09-24-2017 Ambulatory MICHAEL CEDILLO) [facility] Start: 08-14-2017 End: 09-01-2017 Evaluation and management of inpatient MICHAEL TOVAR [facility] Procedures Date Procedure Procedure Detail Performing Clinician Start: 10-10-[address] DAVID CAPUTO Comment on above: Performed By: #### [facility]ASC #### [facility] [address] [place] [address] Dr. Mel Barrientos Start: 01-26-2020 Total colonoscopy David Caputo Work Phone: Start: 12-12-2019 Adult depression screening assessment Zhara Buitrago MD Work Phone: Cholecystectomy David valadez Work Phone: Esophagogastroduodenoscopy M axel Caputo Work Phone: History of percutane ous transluminal coronary angioplasty History of PTCA David Caputo Work Phone: Percutaneous translu jeremias coronary angioplasty David Caputo Work Phone: Screening for malign ant neoplasm of prostate David Caputo Other Plan of Treatment Date Care Activity Detail Author Start: 10-10-2026 PROSTATE CANCER SCRE ENING DISCUSSION PROSTATE CANCER SCREENING DISCUSSION [facility] Start: 03-11-2026 Diabetes Screening Diabetes Screenin g [facility] Start: 02-19-2026 DIABETES SCREEN DIABETES SCREEN [facility] Start: 11-28-2025 DIABETES SCREEN DIABETES SCREEN [facility] Start: 10-03-2025 DIABETES SCREEN DIABETES SCREEN [facility] Start: 08-08-2025 DIABETES SCREEN DIABETES SCREEN [facility] Start: 07-03-2025 DIABETES SCREEN DIABETES SCREEN [facility] Start: 06-06-2025 DIABETES SCREEN DIABETES SCREEN [facility] Start: 05-08-2025 DIABETES SCREEN DIABETES SCREEN [facility] Start: 04-03-2025 DIABETES SCREEN DIABETES SCREEN [facility] Start: 03-06-2025 DIABETES SCREEN DIABETES SCREEN [facility] Start: 02-06-2025 DIABETES SCREEN DIABETES SCREEN [facility] Start: 09-17-2023 FUV, Provider: Irvnig Abreu, Status: Cosme, Time: 10:50 AM FUV, Provider: Irving Abreu, Status: Cosme, Time: 10:50 AM -[facility] DO Work Phone: Start: 06-29-2023 End: 08-29-2023 Cancer Ag 19-9 [Units/volume] in Serum or Plasma CA 19-9 BLD Lab Routine Cancer of ampulla of Vater (HCC) Anemia due to vitamin B12 deficiency, unspecified B12 deficiency type Severe protein-calorie malnutrition (HCC) Expected: 06/29/2023 (Approximate), Expires: 08/29/2023 [facility] Work Phone: Comment on above: Expected: 06/29/2023 (Approximate), Expires: 08/29/2023 Start: 06-29-2023 End: 03-16-2024 CBC W Auto Differential panel - Blood CBC + DIFF Lab Routine Cancer of ampulla of Vater (HCC) Anemia due to vitamin B12 deficiency, unspecified B12 deficiency type Severe protein-calorie malnutrition (HCC) Expected: 06/29/2023 (Approximate), Expires: 03/16/2024 [facility] Work Phone: Comment on above: Expected: 06/29/2023 (Approximate), Expires: 03/16/2024 Start: 06-29-2023 End: 03-16-2024 Cobalamin (Vitamin B12) [Mass/volume] in Serum or Plasma VITAMIN B12 BLOOD Lab Routine Cancer of ampulla of Vater (HCC) Anemia due to vitamin B12 deficiency, unspecified B12 deficiency type Severe protein-calorie malnutrition (HCC) Expected: 06/29/2023 (Approximate), Expires: 03/16/2024 [facility] Work Phone: Comment on above: Expected: 06/29/2023 (Approximate), Expires: 03/16/2024 Start: 06-29-2023 End: 03-16-2024 Comprehensive metabolic 2000 panel - Serum or Plasma COMP METABOLIC PANEL Lab Routine Cancer of ampulla of Vater (HCC) Anemia due to vitamin B12 deficiency, unspecified B12 deficiency type Severe protein-calorie malnutrition (HCC) Expected: 06/29/2023 (Approximate), Expires: 03/16/2024 [facility] Work Phone: Comment on above: Expected: 06/29/2023 (Approximate), Expires: 03/16/2024 Start: 06-29-2023 End: 04-14-2024 Ct abdomen & pelvis w/contrast material CT ABD/PEL W IVCON Radiology Routine Cancer of ampulla of Vater (HCC) Anemia due to vitamin B12 deficiency, unspecified B12 deficiency type Severe protein-calorie malnutrition (HCC) Expected: 06/29/2023 (Approximate), Expires: 04/14/2024 [facility] Work Phone: Comment on above: Expected: 06/29/2023 (Approximate), Expires: 04/14/2024 Start: 06-29-2023 End: 04-14-2024 CT CHEST W IVCON CT CHEST W IVCON Radiology Routine Cancer of ampulla of Vater (HCC) Anemia due to vitamin B12 deficiency, unspecified B12 deficiency type Severe protein-calorie malnutrition (HCC) Expected: 06/29/2023 (Approximate), Expires: 04/14/2024 [facility] Work Phone: Comment on above: Expected: 06/29/2023 (Approximate), Expires: 04/14/2024 Start: 06-29-2023 End: 03-16-2024 Ferritin [Mass/volume] in Serum or Plasma FERRITIN BLD Lab Routine Cancer of ampulla of Vater (HCC) Anemia due to vitamin B12 deficiency, unspecified B12 deficiency type Severe protein-calorie malnutrition (HCC) Expected: 06/29/2023 (Approximate), Expires: 03/16/2024 [facility] Work Phone: Comment on above: Expected: 06/29/2023 (Approximate), Expires: 03/16/2024 Start: 06-29-2023 End: 03-16-2024 Folate [Mass/volume] in Serum or Plasma FOLATE SERUM Lab Routine Cancer of ampulla of Vater (HCC) Anemia due to vitamin B12 deficiency, unspecified B12 deficiency type Severe protein-calorie malnutrition (HCC) Expected: 06/29/2023 (Approximate), Expires: 03/16/2024 [facility] Work Phone: Comment on above: Expected: 06/29/2023 (Approximate), Expires: 03/16/2024 Start: 06-29-2023 End: 03-16-2024 Iron and Iron binding capacity panel - Serum or Plasma IRON + TIBC Lab Routine Cancer of ampulla of Vater (HCC) Anemia due to vitamin B12 deficiency, unspecified B12 deficiency type Severe protein-calorie malnutrition (HCC) Expected: 06/29/2023 (Approximate), Expires: 03/16/2024 [facility] Work Phone: Comment on above: Expected: 06/29/2023 (Approximate), Expires: 03/16/2024 Start: 03-11-2023 End: 05-11-2023 Cancer Ag 19-9 [Units/volume] in Serum or Plasma CA 19-9 BLD Lab Routine Cancer of ampulla of Vater (HCC) Expected: 03/11/2023 (Approximate), Expires: 05/11/2023 [facility] Work Phone: Comment on above: Expected: 03/11/2023 (Approximate), Expires: 05/11/2023 Start: 03-11-2023 End: 03-05-2024 CBC W Auto Differential panel - Blood CBC + DIFF Lab Routine Cancer of ampulla of Vater (HCC) Expected: 03/11/2023 (Approximate), Expires: 03/05/2024 [facility] Work Phone: Comment on above: Expected: 03/11/2023 (Approximate), Expires: 03/05/2024 Start: 03-11-2023 End: 03-05-2024 Cobalamin (Vitamin B12) [Mass/volume] in Serum or Plasma VITAMIN B12 BLOOD Lab Routine Cancer of ampulla of Vater (HCC) Expected: 03/11/2023 (Approximate), Expires: 03/05/2024 [facility] Work Phone: Comment on above: Expected: 03/11/2023 (Approximate), Expires: 03/05/2024 Start: 03-11-2023 End: 03-05-2024 Comprehensive metabolic 2000 panel - Serum or Plasma COMP METABOLIC PANEL Lab Routine Cancer of ampulla of Vater (HCC) Expected: 03/11/2023 (Approximate), Expires: 03/05/2024 [facility] Work Phone: Comment on above: Expected: 03/11/2023 (Approximate), Expires: 03/05/2024 Start: 03-11-2023 End: 03-05-2024 Ferritin [Mass/volume] in Serum or Plasma FERRITIN BLD Lab Routine Cancer of ampulla of Vater (HCC) Expected: 03/11/2023 (Approximate), Expires: 03/05/2024 [facility] Work Phone: Comment on above: Expected: 03/11/2023 (Approximate), Expires: 03/05/2024 Start: 03-11-2023 End: 03-05-2024 Folate [Mass/volume] in Serum or Plasma FOLATE SERUM Lab Routine Cancer of ampulla of Vater (HCC) Expected: 03/11/2023 (Approximate), Expires: 03/05/2024 [facility] Work Phone: Comment on above: Expected: 03/11/2023 (Approximate), Expires: 03/05/2024 Start: 03-11-2023 End: 03-05-2024 Iron and Iron binding capacity panel - Serum or Plasma IRON + TIBC Lab Routine Cancer of ampulla of Vater (HCC) Expected: 03/11/2023 (Approximate), Expires: 03/05/2024 [facility] Work Phone: Comment on above: Expected: 03/11/2023 (Approximate), Expires: 03/05/2024 Start: 03-05-2023 End: 03-20-[address] attenuation skull base mid-thigh NM PET/CT SKULL-THIGH INITIAL Radiology Routine Cancer of ampulla of Vater (HCC) Expected: 03/05/2023 (Approximate), Expires: 03/20/2024 [facility] Work Phone: Comment on above: Expected: 03/05/2023 (Approximate), Expires: 03/20/2024 Start: 02-27-2023 Covid-19 Vaccine () Covid-19 Vaccine () [facility] Start: 02-27-2023 Influenza vaccination [facility] Start: 02-19-2023 End: 02-18-2024 CBC W Auto Differential panel - Blood CBC + DIFF Lab Routine Anemia due to vitamin B12 deficiency, unspecified B12 deficiency type Expected: 02/19/2023 (Approximate), Expires: 02/18/2024 [facility] Work Phone: Comment on above: Expected: 02/19/2023 (Approximate), Expires: 02/18/2024 Start: 02-19-2023 End: 02-18-2024 Cobalamin (Vitamin B12) [Mass/volume] in Serum or Plasma VITAMIN B12 BLOOD Lab Routine Anemia due to vitamin B12 deficiency, unspecified B12 deficiency type Expected: 02/19/2023 (Approximate), Expires: 02/18/2024 [facility] Work Phone: Comment on above: Expected: 02/19/2023 (Approximate), Expires: 02/18/2024 Start: 02-19-2023 End: 02-18-2024 Comprehensive metabolic 2000 panel - Serum or Plasma COMP METABOLIC PANEL Lab Routine Anemia due to vitamin B12 deficiency, unspecified B12 deficiency type Expected: 02/19/2023 (Approximate), Expires: 02/18/2024 [facility] Work Phone: Comment on above: Expected: 02/19/2023 (Approximate), Expires: 02/18/2024 Start: 02-19-2023 End: 02-18-2024 Ferritin [Mass/volume] in Serum or Plasma FERRITIN BLD Lab Routine Anemia due to vitamin B12 deficiency, unspecified B12 deficiency type Expected: 02/19/2023 (Approximate), Expires: 02/18/2024 [facility] Work Phone: Comment on above: Expected: 02/19/2023 (Approximate), Expires: 02/18/2024 Start: 02-19-2023 End: 02-18-2024 Folate [Mass/volume] in Serum or Plasma FOLATE SERUM Lab Routine Anemia due to vitamin B12 deficiency, unspecified B12 deficiency type Expected: 02/19/2023 (Approximate), Expires: 02/18/2024 [facility] Work Phone: Comment on above: Expected: 02/19/2023 (Approximate), Expires: 02/18/2024 Start: 02-19-2023 End: 02-18-2024 Iron and Iron binding capacity panel - Serum or Plasma IRON + TIBC Lab Routine Anemia due to vitamin B12 deficiency, unspecified B12 deficiency type Expected: 02/19/2023 (Approximate), Expires: 02/18/2024 [facility] Work Phone: Comment on above: Expected: 02/19/2023 (Approximate), Expires: 02/18/2024 Start: 01-27-2023 Insulin C-peptide measurement [facility] Start: 01-07-2023 FUV, Provider: Irving Abreu, Status: Pen, Time: 10:20 AM FUV, Provider: Irving Abreu, Status: Cosme, Time: 10:20 AM -[place] [id number] DO Work Phone: Start: 08-14-2022 Pneumococcal Vaccine : 65+ (3 - PPSV23 or PCV20) Pneumococcal Vaccine: 65+ (3 - PPSV23 or PCV20) [facility] Start: 08-14-2022 PNEUMOCOCCAL: 65+ (#3) PNEUMOCOCCAL: 65+ (#3) [facility] Start: 08-14-2022 PNEUMOCOCCAL: 65+ (3 - PPSV23 if available, else PCV20) PNEUMOCOCCAL: 65+ (3 - PPSV23 if available, else PCV20) [facility] Start: 08-14-2022 PNEUMOCOCCAL: 65+ (3 - PPSV23 or PCV20) PNEUMOCOCCAL: 65+ (3 - PPSV23 or PCV20) [facility] Start: 07-04-2022 End: 09-03-2022 Cancer Ag 19-9 [Units/volume] in Serum or Plasma CA 19-9 BLD Lab Routine Cancer of ampulla of Vater (HCC) Expected: 07/04/2022 (Approximate), Expires: 09/03/2022 [facility] Work Phone: Comment on above: Expected: 07/04/2022 (Approximate), Expires: 09/03/2022 Start: 07-04-2022 End: 06-06-2023 CBC W Auto Differential panel - Blood CBC + DIFF Lab Routine Anemia due to vitamin B12 deficiency, unspecified B12 deficiency type Expected: 07/04/2022 (Approximate), Expires: 06/06/2023 [facility] Work Phone: Comment on above: Expected: 07/04/2022 (Approximate), Expires: 06/06/2023 Start: 07-04-2022 End: 06-06-2023 Cobalamin (Vitamin B12) [Mass/volume] in Serum or Plasma VITAMIN B12 BLOOD Lab Routine Anemia due to vitamin B12 deficiency, unspecified B12 deficiency type Expected: 07/04/2022 (Approximate), Expires: 06/06/2023 [facility] Work Phone: Comment on above: Expected: 07/04/2022 (Approximate), Expires: 06/06/2023 Start: 07-04-2022 End: 06-06-2023 Comprehensive metabolic 2000 panel - Serum or Plasma COMP METABOLIC PANEL Lab Routine Anemia due to vitamin B12 deficiency, unspecified B12 deficiency type Expected: 07/04/2022 (Approximate), Expires: 06/06/2023 [facility] Work Phone: Comment on above: Expected: 07/04/2022 (Approximate), Expires: 06/06/2023 Start: 07-04-2022 End: 07-06-2023 Ct abdomen & pelvis w/contrast material CT ABD/PEL W IVCON Radiology Routine Interstitial pulmonary disease (HCC) Cancer of ampulla of Vater (HCC) Anemia due to vitamin B12 deficiency, unspecified B12 deficiency type Expected: 07/04/2022 (Approximate), Expires: 07/06/2023 [facility] Work Phone: Comment on above: Expected: 07/04/2022 (Approximate), Expires: 07/06/2023 Start: 07-04-2022 End: 07-06-2023 CT CHEST W IVCON CT CHEST W IVCON Radiology Routine Interstitial pulmonary disease (HCC) Cancer of ampulla of Vater (HCC) Anemia due to vitamin B12 deficiency, unspecified B12 deficiency type Expected: 07/04/2022 (Approximate), Expires: 07/06/2023 [facility] Work Phone: Comment on above: Expected: 07/04/2022 (Approximate), Expires: 07/06/2023 Start: 07-04-2022 DIABETES SCREEN DIABETES SCREEN [facility] Start: 07-04-2022 End: 06-06-2023 Ferritin [Mass/volume] in Serum or Plasma FERRITIN BLD Lab Routine Anemia due to vitamin B12 deficiency, unspecified B12 deficiency type Expected: 07/04/2022 (Approximate), Expires: 06/06/2023 [facility] Work Phone: Comment on above: Expected: 07/04/2022 (Approximate), Expires: 06/06/2023 Start: 07-04-2022 End: 06-06-2023 Folate [Mass/volume] in Serum or Plasma FOLATE SERUM Lab Routine Anemia due to vitamin B12 deficiency, unspecified B12 deficiency type Expected: 07/04/2022 (Approximate), Expires: 06/06/2023 [facility] Work Phone: Comment on above: Expected: 07/04/2022 (Approximate), Expires: 06/06/2023 Start: 07-04-2022 End: 06-06-2023 Iron and Iron binding capacity panel - Serum or Plasma IRON + TIBC Lab Routine Anemia due to vitamin B12 deficiency, unspecified B12 deficiency type Expected: 07/04/2022 (Approximate), Expires: 06/06/2023 [facility] Work Phone: Comment on above: Expected: 07/04/2022 (Approximate), Expires: 06/06/2023 Start: 06-29-2022 ADVANCE DIRECTIVE DISCUSSION ADVANCE DIRECTIVE DISCUSSION [facility] Start: 06-29-2022 DEPRESSION ASSESSMENT DEPRESSION ASS ESSMENT [facility] Start: 2022 ADVANCE DIRECTIVE DISCUSSION ADVANCE DIRECTIVE DISCUSSION [facility] Start: 05-08-2022 End: 04-10-2023 CBC W Auto Differential panel - Blood CBC + DIFF Lab Routine Iron deficiency anemia, unspecified iron deficiency anemia type Anemia due to vitamin B12 deficiency, unspecified B12 deficiency type Expected: 05/08/2022 (Approximate), Expires: 04/10/2023 [facility] Work Phone: Comment on above: Expected: 05/08/2022 (Approximate), Expires: 04/10/2023 Start: 05-08-2022 End: 04-10-2023 Cobalamin (Vitamin B12) [Mass/volume] in Serum or Plasma VITAMIN B12 BLOOD Lab Routine Iron deficiency anemia, unspecified iron deficiency anemia type Anemia due to vitamin B12 deficiency, unspecified B12 deficiency type Expected: 05/08/2022 (Approximate), Expires: 04/10/2023 [facility] Work Phone: Comment on above: Expected: 05/08/2022 (Approximate), Expires: 04/10/2023 Start: 05-08-2022 End: 04-10-2023 Comprehensive metabolic 2000 panel - Serum or Plasma COMP METABOLIC PANEL Lab Routine Iron deficiency anemia, unspecified iron deficiency anemia type Anemia due to vitamin B12 deficiency, unspecified B12 deficiency type Expected: 05/08/2022 (Approximate), Expires: 04/10/2023 [facility] Work Phone: Comment on above: Expected: 05/08/2022 (Approximate), Expires: 04/10/2023 Start: 05-08-2022 End: 04-10-2023 Ferritin [Mass/volume] in Serum or Plasma FERRITIN BLD Lab Routine Iron deficiency anemia, unspecified iron deficiency anemia type Anemia due to vitamin B12 deficiency, unspecified B12 deficiency type Expected: 05/08/2022 (Approximate), Expires: 04/10/2023 [facility] Work Phone: Comment on above: Expected: 05/08/2022 (Approximate), Expires: 04/10/2023 Start: 05-08-2022 End: 04-10-2023 Folate [Mass/volume] in Serum or Plasma FOLATE SERUM Lab Routine Iron deficiency anemia, unspecified iron deficiency anemia type Anemia due to vitamin B12 deficiency, unspecified B12 deficiency type Expected: 05/08/2022 (Approximate), Expires: 04/10/2023 [facility] Work Phone: Comment on above: Expected: 05/08/2022 (Approximate), Expires: 04/10/2023 Start: 05-08-2022 End: 04-10-2023 Iron and Iron binding capacity panel - Serum or Plasma IRON + TIBC Lab Routine Iron deficiency anemia, unspecified iron deficiency anemia type Anemia due to vitamin B12 deficiency, unspecified B12 deficiency type Expected: 05/08/2022 (Approximate), Expires: 04/10/2023 [facility] Work Phone: Comment on above: Expected: 05/08/2022 (Approximate), Expires: 04/10/2023 Start: 04-10-2022 End: 04-10-2023 CBC W Auto Differential panel - Blood CBC + DIFF Lab Routine Iron deficiency anemia, unspecified iron deficiency anemia type Anemia due to vitamin B12 deficiency, unspecified B12 deficiency type Macrocytosis Expected: 04/10/2022, Expires: 04/10/2023 [facility] Work Phone: Comment on above: Expected: 04/10/2022 , Expires: 04/10/2023 Start: 04-10-2022 End: 04-10-2023 Cobalamin (Vitamin B12) [Mass/volume] in Serum or Plasma VITAMIN B12 BLOOD Lab Routine Iron deficiency anemia, unspecified iron deficiency anemia type Anemia due to vitamin B12 deficiency, unspecified B12 deficiency type Macrocytosis Expected: 04/10/2022, Expires: 04/10/2023 [facility] Work Phone: Comment on above: Expected: 04/10/2022 , Expires: 04/10/2023 Start: 04-10-2022 End: 04-10-2023 Comprehensive metabolic 2000 panel - Serum or Plasma COMP METABOLIC PANEL Lab Routine Iron deficiency anemia, unspecified iron deficiency anemia type Anemia due to vitamin B12 deficiency, unspecified B12 deficiency type Macrocytosis Expected: 04/10/2022, Expires: 04/10/2023 [facility] Work Phone: Comment on above: Expected: 04/10/2022 , Expires: 04/10/2023 Start: 04-10-2022 End: 04-10-2023 Ferritin [Mass/volume] in Serum or Plasma FERRITIN BLD Lab Routine Iron deficiency anemia, unspecified iron deficiency anemia type Anemia due to vitamin B12 deficiency, unspecified B12 deficiency type Macrocytosis Expected: 04/10/2022, Expires: 04/10/2023 [facility] Work Phone: Comment on above: Expected: 04/10/2022 , Expires: 04/10/2023 Start: 04-10-2022 End: 04-10-2023 Folate [Mass/volume] in Serum or Plasma FOLATE SERUM Lab Routine Iron deficiency anemia, unspecified iron deficiency anemia type Anemia due to vitamin B12 deficiency, unspecified B12 deficiency type Macrocytosis Expected: 04/10/2022, Expires: 04/10/2023 [facility] Work Phone: Comment on above: Expected: 04/10/2022 , Expires: 04/10/2023 Start: 04-10-2022 End: 06-10-2022 Haptoglobin [Mass/volume] in Serum or Plasma HAPTOGLOBIN BLD Lab Routine Iron deficiency anemia, unspecified iron deficiency anemia type Anemia due to vitamin B12 deficiency, unspecified B12 deficiency type Macrocytosis Expected: 04/10/2022, Expires: 06/10/2022 [facility] Work Phone: Comment on above: Expected: 04/10/2022 , Expires: 06/10/2022 Start: 04-10-2022 End: 04-10-2023 Iron and Iron binding capacity panel - Serum or Plasma IRON + TIBC Lab Routine Iron deficiency anemia, unspecified iron deficiency anemia type Anemia due to vitamin B12 deficiency, unspecified B12 deficiency type Macrocytosis Expected: 04/10/2022, Expires: 04/10/2023 [facility] Work Phone: Comment on above: Expected: 04/10/2022 , Expires: 04/10/2023 Start: 04-10-2022 End: 06-10-2022 Lactate dehydrogenase [Enzymatic activity/volume] in Serum or Plasma LD LACTATE DEHYDRO Lab Routine Iron deficiency anemia, unspecified iron deficiency anemia type Anemia due to vitamin B12 deficiency, unspecified B12 deficiency type Macrocytosis Expected: 04/10/2022, Expires: 06/10/2022 [facility] Work Phone: Comment on above: Expected: 04/10/2022 , Expires: 06/10/2022 Start: 04-10-2022 End: 06-10-2022 RETIC COUNT RETIC COUNT Lab Routine Iron deficiency anemia, unspecified iron deficiency anemia type Anemia due to vitamin B12 deficiency, unspecified B12 deficiency type Macrocytosis Expected: 04/10/2022, Expires: 06/10/2022 [facility] Work Phone: Comment on above: Expected: 04/10/2022 , Expires: 06/10/2022 Start: 02-27-2022 Influenza vaccination [facility] Start: 02-04-2022 End: 04-06-2022 Cancer Ag 19-9 [Units/volume] in Serum or Plasma CA 19-9 BLD Lab Routine Iron deficiency anemia, unspecified iron deficiency anemia type 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) Expected: 02/04/2022 (Approximate), Expires: 04/06/2022 [facility] Work Phone: Comment on above: Expected: 02/04/2022 (Approximate), Expires: 04/06/2022 Start: 02-04-2022 End: 12-05-2022 Carcinoembryonic Ag [Mass/volume] in Serum or Plasma CEA BLD Lab Routine Iron deficiency anemia, unspecified iron deficiency anemia type 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) Malignant neoplasm of body of pancreas (HCC) Expected: 02/04/2022 (Approximate), Expires: 12/05/2022 [facility] Work Phone: Comment on above: Expected: 02/04/2022 (Approximate), Expires: 12/05/2022 Start: 02-04-2022 End: 12-05-2022 CBC W Auto Differential panel - Blood CBC + DIFF Lab Routine Iron deficiency anemia, unspecified iron deficiency anemia type 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) Expected: 02/04/2022 (Approximate), Expires: 12/05/2022 [facility] Work Phone: Comment on above: Expected: 02/04/2022 (Approximate), Expires: 12/05/2022 Start: 02-04-2022 End: 12-05-2022 Comprehensive metabolic 2000 panel - Serum or Plasma COMP METABOLIC PANEL Lab Routine Iron deficiency anemia, unspecified iron deficiency anemia type 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) Expected: 02/04/2022 (Approximate), Expires: 12/05/2022 [facility] Work Phone: Comment on above: Expected: 02/04/2022 (Approximate), Expires: 12/05/2022 Start: 02-04-2022 End: 01-04-2023 Ct abdomen & pelvis w/contrast material CT ABD/PEL W IVCON Radiology Routine Iron deficiency anemia, unspecified iron deficiency anemia type 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) Expected: 02/04/2022 (Approximate), Expires: 01/04/2023 [facility] Work Phone: Comment on above: Expected: 02/04/2022 (Approximate), Expires: 01/04/2023 Start: 02-04-2022 End: 01-04-2023 Ct thorax w/contrast material CT CHEST W IVCON Radiology Routine Iron deficiency anemia, unspecified iron deficiency anemia type 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) Expected: 02/04/2022 (Approximate), Expires: 01/04/2023 [facility] Work Phone: Comment on above: Expected: 02/04/2022 (Approximate), Expires: 01/04/2023 Start: 01-09-2022 FUV, Provider: Irving Abreu, Status: Cosme, Time: 11:15 AM FUV, Provider: Irving Abreu, Status: Cosme, Time: 11:15 AM -[facility] DO Work Phone: Start: 11-14-2021 COVID-19 VACCINE (4 - Booster for Pfizer series) COVID-19 VACCINE (4 - Booster for Pfizer series) [facility] Start: 09-11-2021 COVID-19 VACCINE (4 - Booster for Pfizer series) COVID-19 VACCINE (4 - Booster for Pfizer series) [facility] Start: 09-11-2021 COVID-19 VACCINE (4 - Pfizer series) COVID-19 VACCINE (4 - Pfizer series) [facility] Start: 06-29-2021 DEPRESSION ASSESSMENT DEPRESSION ASS ESSMENT [facility] Start: 12-11-2020 Adult depression scr eening assessment DEPRESSION SCREENING [facility] Start: 08-14-2018 PNEUMOCOCCAL (2 - PCV) PNEUMOCOCCAL (2 - PCV) [facility] Start: 2012 PROSTATE CANCER SCRE ENING DISCUSSION PROSTATE CANCER SCREENING DISCUSSION [facility] Start: 2007 SHINGRIX VACCINE (1 of 2) URBINA GRIX VACCINE (1 of 2) [facility] Start: 2002 COLOGUARD (FIT-DNA) COLOGUARD (FIT-D NA) [facility] Start: 2002 Colonoscopy COLONOSCOPY [facility] Start: 2002 COLORECTAL CANCER SCREENING COLORECTAL CANCER SCREENING [facility] Start: [address] [facility] Start: 2002 FECAL OCCULT BLOOD FECAL OCCULT BLOO D [facility] Start: 2002 SIGMOIDOSCOPY SIGMOIDOSCOPY [facility] Start: 1992 Lipid 1996 panel - S brandi or Plasma Lipid Screening [facility] Start: 1992 LIPID SCREEN LIPID SCREEN [facility] Start: 1976 SHINGRIX VACCINE (1 of 2) URBINA GRIX VACCINE (1 of 2) [facility] Start: 1976 Urine microalbumin profile [facility] Start: 1975 HIV SCREENING HIV SCREENING [facility] Start: 1962 COVID-19 VACCINE (#1) COVID-19 VACCI NE (#1) [facility] Start: 1957 ABDOMINAL AORTIC ANE URYSM SCREENING ABDOMINAL AORTIC ANEURYSM SCREENING [facility] End: 03-10-2024 Cancer Ag 19-9 [Units/volume] in Serum or Plasma CA 19-9 BLD Lab Routine Cancer of ampulla of Vater (HCC) Anemia due to vitamin B12 deficiency, unspecified B12 deficiency type Iron deficiency anemia, unspecified iron deficiency anemia type Every 3 weeks for 18 Occurrences starting 03/11/2023 until 03/10/2024 [facility] Work Phone: Comment on above: Every 3 weeks for 18 Occurrences starting 03/11/2023 until 03/10/2024 End: 02-13-2023 CBC W Auto Differential panel - Blood CBC + DIFF Lab Routine Iron deficiency anemia, unspecified iron deficiency anemia type Macrocytosis Every other week for 20 Occurrences starting 02/13/2022 until 02/13/2023 [facility] Work Phone: Comment on above: [...] for 18 Occurrences starting 03/11/2023 until 03/10/2024 [facility] Work Phone: Comment on above: Every 3 weeks for 18 Occurrences starting 03/11/2023 until 03/10/2024 End: 02-13-2023 Cobalamin (Vitamin B12) [Mass/volume] in Serum or Plasma VITAMIN B12 BLOOD Lab Routine Iron deficiency anemia, unspecified iron deficiency anemia type Macrocytosis Every other week for 20 Occurrences starting 02/13/2022 until 02/13/2023 [facility] Work Phone: Comment on above: [...] for 18 Occurrences starting 03/11/2023 until 03/10/2024 [facility] Work Phone: Comment on above: Every 3 weeks for 18 Occurrences starting 03/11/2023 until 03/10/2024 End: 02-13-2023 Comprehensive metabolic 2000 panel - Serum or Plasma COMP METABOLIC PANEL Lab Routine Iron deficiency anemia, unspecified iron deficiency anemia type Macrocytosis Every other week for 20 Occurrences starting 02/13/2022 until 02/13/2023 [facility] Work Phone: Comment on above: [...] for 18 Occurrences starting 03/11/2023 until 03/10/2024 [facility] Work Phone: Comment on above: Every 3 weeks for 18 Occurrences starting 03/11/2023 until 03/10/2024 End: 07-16-2024 EGD / Colonoscopy EGD / Colonoscopy GI Routine Iron deficiency anemia, unspecified iron deficiency anemia type History of gastric cancer Rectal bleeding 1 Occurrences starting 07/17/2023 until 07/16/2024 [facility] Work Phone: Comment on above: 1 Occurrences starti ng 07/17/2023 until 07/16/2024 End: 02-13-2023 Ferritin [Mass/volume] in Serum or Plasma FERRITIN BLD Lab Routine Iron deficiency anemia, unspecified iron deficiency anemia type Macrocytosis Every other week for 20 Occurrences starting 02/13/2022 until 02/13/2023 [facility] Work Phone: Comment on above: Every other week for 20 Occurrences starting 02/13/2022 until 02/13/2023 End: 03-10-2024 Ferritin [Mass/volume] in Serum or Plasma FERRITIN BLD Lab Routine Cancer of ampulla of Vater (HCC) Anemia due to vitamin B12 deficiency, unspecified B12 deficiency type Iron deficiency anemia, unspecified iron deficiency anemia type Every 3 weeks for 18 Occurrences starting 03/11/2023 until 03/10/2024 [facility] Work Phone: Comment on above: Every 3 weeks for 18 Occurrences starting 03/11/2023 until 03/10/2024 End: 02-13-2023 Folate [Mass/volume] in Serum or Plasma FOLATE SERUM Lab Routine Iron deficiency anemia, unspecified iron deficiency anemia type Macrocytosis Every other week for 20 Occurrences starting 02/13/2022 until 02/13/2023 [facility] Work Phone: Comment on above: Every other week for 20 Occurrences starting 02/13/2022 until 02/13/2023 End: 03-10-2024 Folate [Mass/volume] in Serum or Plasma FOLATE SERUM Lab Routine Cancer of ampulla of Vater (HCC) Anemia due to vitamin B12 deficiency, unspecified B12 deficiency type Iron deficiency anemia, unspecified iron deficiency anemia type Every 3 weeks for 18 Occurrences starting 03/11/2023 until 03/10/2024 [facility] Work Phone: Comment on above: Every 3 weeks for 18 Occurrences starting 03/11/2023 until 03/10/2024 End: 02-13-2023 Iron and Iron binding capacity panel - Serum or Plasma IRON + TIBC Lab Routine Iron deficiency anemia, unspecified iron deficiency anemia type Macrocytosis Every other week for 20 Occurrences starting 02/13/2022 until 02/13/2023 [facility] Work Phone: Comment on above: [...] for 18 Occurrences starting 03/11/2023 until 03/10/2024 [facility] Work Phone: Comment on above: Every 3 weeks for 18 Occurrences starting 03/11/2023 until 03/10/2024 [facility] Immunizations Immunization Date Immunization Notes Care Provider Fa cili 06-04-2023 influenza, high dose seasonal, preservative-free David Caputo Other [facility] Other 04-01-2022 Seasonal trivalent influenza vaccine, adjuvanted, preservative free Chair Hartusky Work Phone: [facility] 04-01-2022 influenza virus vaccine, unspecified formulation Zahra Buitrago MD Work Phone: [facility] 07-17-2021 COVID-19 vaccine, ag e 12+ yr (PFIZER-BIONTECH - PARADA TOP) Zahra Buitrago MD Work Phone: [facility] 04-04-2021 AS03 adjuvant Chair Phelan Work Phone: [facility] 04-04-2021 influenza virus vaccine, split virus (incl. purified surface antigen) David Caputo Other [facility] Other 04-04-2021 Seasonal trivalent influenza vaccine, adjuvanted, preservative free Zahra Buitrago MD Work Phone: [facility] 10-24-2020 COVID-19 vaccine, ag e 12+ yr (PFIZER-BIONTECH - PURPLE TOP) Zahra Buitrago MD Work Phone: [facility] 10-03-2020 COVID-19 vaccine, ag e 12+ yr (PFIZER-BIONTECH - PURPLE TOP) Zahra Buitrago MD Work Phone: [facility] 03-29-2020 influenza nasal, unspecified formulation Chair Phelan Work Phone: [facility] 03-29-2020 influenza virus vaccine, unspecified formulation David Caputo Work Phone: [place] [id number] DO Work Phone: 03-29-2020 influenza, seasonal, injectable Zahra Buitrago MD Work Phone: [facility] 03-22-2020 influenza virus vaccine, split virus (incl. purified surface antigen) David Caputo Other [facility] Other 03-22-2020 influenza, injectabl e, quadrivalent, contains preservative Zahra Buitrago MD Work Phone: [facility] 05-02-2019 influenza, injectabl e, quadrivalent, contains preservative Zahra Buitrago MD Work Phone: [facility] 03-29-2019 influenza nasal, unspecified formulation Chair Phelan Work Phone: [facility] 03-29-2019 influenza virus vaccine, unspecified formulation David Caputo Work Phone: [place] [id number] DO Work Phone: 03-29-2019 influenza, seasonal, injectable Zahra Buitrago MD Work Phone: [facility] 03-29-2018 influenza nasal, unspecified formulation Chair Phelan Work Phone: [facility] 03-29-2018 influenza virus vaccine, unspecified formulation David Caputo Work Phone: [place] [id number] DO Work Phone: 02-14-2018 influenza, injectabl e, quadrivalent, preservative free Zahra Buitrago MD Work Phone: [facility] 09-02-2017 tuberculin skin test ; unspecified formulation Dr. Adriane Espitia [facility] 09-01-2017 influenza, high-dose seasonal, quadrivalent, 0.7mL dose, preservative free Dr. Adriane Espitia [facility] 09-01-[address] Adriane Espitia [facility] 08-14-2017 pneumococcal polysaccharide vaccine, 23 valent Zahra Buitrago MD Work Phone: [facility] Work Phone: 04-22-2017 influenza virus vaccine, split virus (incl. purified surface antigen) David Caputo Other [facility] Other 04-13-2017 influenza, injectabl e, quadrivalent, contains preservative Zahra Buitrago MD Work Phone: [facility] 03-29-2017 influenza nasal, unspecified formulation Chair Proy Work Phone: [facility] 03-29-2017 influenza virus vaccine, unspecified formulation David Caputo Work Phone: [facility] [employer] Work Phone: 03-03-2017 influenza, injectabl e, quadrivalent, preservative free Zahra Buitrago MD Work Phone: [facility] 07-30-2016 pneumococcal conjuga te vaccine, 13 valent David Caputo Work Phone: [facility] 04-29-2011 influenza nasal, unspecified formulation Chair Phelan Work Phone: [facility] 04-29-2011 influenza virus vaccine, unspecified formulation David Caputo Work Phone: [facility] [employer] Work Phone: Payers Date Payer Category Payer Unknown [id number] 2023 Self-pay [id number] 2023 Unknown [id number] 2021 Medicaid MEDICAID [facility] MEDICAID [id number] 2021-Present [phone] [address] [place] [address] Medicaid [id number] 2021 Medicaid MEDICAID [facility] MEDICAID [id number] 2021-Present [phone] [address] [place] [address] Medicaid [id number] 2020 Medicare MEDICARE MEDICAR E A AND B [id number] 2020-Present [phone] [address] [address] [place] [address] Medicare [id number] 2020 Medicare [id number] 1959 Medicaid [id number] 1959 Medicare [id number] 1957 Unknown [id number]. 593 1957 Unknown [id number]. 593 1957 Unknown [id number] [id number]. 593 1957 Unknown [id number] [id number]. 593 1957 Unknown [id number] [id number]. 593 1957 Unknown [id number] 2..[id number]. 593 1957 Unknown [id number]. 356 1957 Unknown [id number] 356 Private Health Insurance [id number] Private Health Insurance [facility] [id number] Unknown Unknown [employer]ria BC/BS [id number] Unknown [id number] 531 Unknown [id number] 531 Social History Date Type Detail Facility Start: 08-13-2017 End: 02-13-2022 Tobacco smoking status NHIS Ex-smoker [facility] End: 06-29-2010 History of tobacco use Current smoker [facility] End: 06-29-2010 History of tobacco use Cigarette Smoker [facility] Start: 08-13-2017 End: 02-13-2022 Tobacco use and exposure Smokeless tobacco non-user [facility] Start: 12-03-2021 End: 03-11-2023 Alcohol intake Current drinker of alcohol (finding) [facility] Start: 12-03-2021 End: 10-31-2022 Alcohol intake [facility] Start: 08-13-2017 History SDOH Alcohol Comment occasional beer [facility] Start: 1955 Sex Assigned At Not on file [facility] Start: 11-25-2021 End: 05-08-2022 Exposure to SARS-CoV-2 (event) Not sure [facility] Start: 10-31-2022 End: 11-28-2022 Sex Assigned At [facility] History of tobacco use Passive smoker [facility] Adult Depression Screening Assessment 0 [facility] Start: 1955 Sex Assigned At Male [facility] Start: 01-27-2023 Unknown if ever smoked [facility] Medical Equipment Procedure Code Equipment Code Equipment Origin al Text Equipment Identifier Dates Lancets [id number] - Start: 03-17-2023 Clinical Notes 02-28-2020 [...] Medical History Fatigue Medical History 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 Surgical History heart stent 2010 Surgical History stomach ulcer 2017 Surgical History gallbladder 2018 Surgical History whipple 2018 Surgical History colonoscopy 2019 Hospitalization History SEE SURGICAL HX [facility] Other 01-16-2024 Evaluation note* Encounter Date Diagnosis Assessment Notes Treatment Notes Treatment Clinical Notes Jun, Anxiety disorder, unspecified (ICD-10 - F41.9) [facility] Other 01-02-2024 Evaluation note* Encounter Date Diagnosis Assessment Notes Treatment Notes Treatment Clinical Notes Jun, Anxiety, generalized (ICD-10 - F41.1) [facility] Other 12-18-2023 History general Narrative - Reported* Type Description Date Medical History BMI 20.0-20.9, adult Medical History Paroxysmal atrial fibrillation Medical History Lumbar pain Medical History Essential hypertension Medical History Tachypnea on examination Medical History Dyspnea on exertion Medical History Anxiety, generalized Medical History Anemia, macrocytic Medical History Elevated LFTs Medical History Fatigue Medical History 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 Surgical History heart stent 2010 Surgical History stomach ulcer 2017 Surgical History gallbladder 2018 Surgical History whipple 2018 Surgical History colonoscopy 2019 Hospitalization History SEE SURGICAL HX [facility] Other 12-07-2023 Evaluation note* Encounter Date Diagnosis [...] Pain in left hand (ICD-10 - M79.642) [facility] Other 11-24-2023 Evaluation note* Encounter Date Diagnosis Assessment Notes Treatment Notes Treatment Clinical Notes Apr, Anxiety disorder, unspecified (ICD-10 - F41.9) [facility] Other 11-21-2023 Evaluation note* Encounter Date Diagnosis Assessment Notes Treatment Notes Treatment Clinical Notes Apr, Anxiety, generalized (ICD-10 - F41.1) [facility] Other 11-08-2023 Evaluation note* Encounter Date Diagnosis Assessment Notes Treatment Notes Treatment Clinical Notes Apr, Anxiety, generalized (ICD-10 - F41.1) [facility] Other 10-19-2023 History general Narrative - Reported* Type Description Date Medical History BMI 20.0-20.9, adult Medical History Paroxysmal atrial fibrillation Medical History Lumbar pain Medical History Essential hypertension Medical History Tachypnea on examination Medical History Dyspnea on exertion Medical History Anxiety, generalized Medical History Anemia, macrocytic Medical History Elevated LFTs Medical History Fatigue Medical History 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 Surgical History heart stent 2010 Surgical History stomach ulcer 2017 Surgical History gallbladder 2018 Surgical History whipple 2018 Surgical History colonoscopy 2019 Hospitalization History SEE SURGICAL HX [facility] Other 10-12-2023 Nurse Note* Homa Powell Ma - 04/09/2023 2:56 PM EDT Patient Identification confirmed: yes. Injection given and documented on AUG per provider order. Homa Powell Ma documented [facility] History general Narrative - Reported* Type Description Date Medical History BMI 20.0-20.9, adult Medical History Paroxysmal atrial fibrillation Medical History Lumbar pain Medical History Essential hypertension Medical History Tachypnea on examination Medical History Dyspnea on exertion Medical History Anxiety, generalized Medical History Anemia, macrocytic Medical History Elevated LFTs Medical History Fatigue Medical History 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 Surgical History heart stent 2010 Surgical History stomach ulcer 2017 Surgical History gallbladder 2018 Surgical History whipple 2018 Surgical History colonoscopy 2019 Hospitalization History SEE SURGICAL HX [facility] Other 10-10-2023 Evaluation note* Encounter Date Diagnosis Assessment Notes Treatment Notes Treatment Clinical Notes Mar, Anxiety, generalized (ICD-10 - F41.1) [facility] Other 10-02-2023 Miscellaneous Notes* Telephone Encounter - Rola Gordon APRN.CNP - 03/30/2023 4:04 PM EDT The following approved medication requests have been transmitted electronically. Requested Prescriptions Signed Prescriptions Disp Refills folic acid 1 mg tablet 90 tablet 3 Sig: Take 1 tablet by mouth once daily. Authorizing Provider: ROLA GORDON APRN.CNP documented in this encounterMer[facility] Evaluation note* Encounter Date Diagnosis Assessment Notes Treatment Notes Treatment Clinical Notes Feb, Anxiety disorder, unspecified (ICD-10 - F41.9) [facility] Other 09-18-2023 Miscellaneous Notes* Telephone Encounter - [...] up based on results. documented in this encounterMer[facility]09-[facility]09-13-20[facility] Nurse Note* Haley Miller MA - 03/11/2023 11:21 AM EDT Patient Identification confirmed: yes. Injection given and documented on AUG per provider order. Haley Miller MA documented in this encounterMer[facility]09-13-2023 Instructions* Patient Instructions* Zahra Buitrago MD - 03/11/2023 11:09 AM EDT B12 shot today and every 4 weeks. Patient will continue folic acid 1 mg daily as Rx'd. Triage to please call PET/CT results next week Determine follow up based on results. continue following with Dr. Caputo for DMII management. documented in this encounterMercy [facility]09-13-2023 History of Present illness Narrative* Zahra Buitrago MD - 03/11/2023 10:45 AM EDT Images from the original note were not included. NAME: Rocio Jackson [facility] NO.: [id number] DATE OF SERVICE: March 11, 2023 ([facility]) Some elements in this clinic [...] open wounds. CTCAP done late December in [place] concerning for possible metastatic disease. Updated Visit, [...] with his son Joaquin. Worked at a [employer]. Doing well overall is at his baseline. 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 His PFTs are pending, and he was [...] three times daily with meals.^Disp:90 tablet^Rfl: 1 [id number] (CREON 24) 24,000-76,000 -120,000 unit delayed release [...] 5 blood transfusions Coronary artery disease involving yuhaaviatam coronary artery Diabetes mellitus (HCC) 2017 Duodenal cancer (HCC) Dyslipidemia Fatigue Glaucoma Hypertension Myocardial infarction (HCC) 05/15/2011 PTSD (post-traumatic stress disorder) PAST SURGICAL HISTORY Procedure Laterality Date ANGIOPLASTY HX 05/15/2011 2 stents s/p [place];[facility] CHOLECYSTECTOMY 08/11/2017 [facility] COLONOSCOPY PAST SURGICAL HISTORY OF Cardiac Stents x2 PAST SURGICAL HISTORY OF 09/2017 [place] PICC LINE INSERT/CONSULT 08/16/2017 Social History Tobacco [...] which included preparing to see the patient, [id number] patient care, completing clinical documentation, performing a medically appropriate examination, counseling and educating the patient/family/caregiver, ordering medications, tests, or p rocedures, independently interpreting results (not separately reported), communicating results to the patient/family/caregiver, and care coordination (not separately reported). Zahra Buitrago MD, CPE Hematology and Oncology Services Provided at: [place], [place] CC: Dr. David Caputo [id number] [facility] [place] [address] documented in this encounterMercy [facility]09-13-[facility] History general Narrative - Reported* Type Description Date Medical History BMI 20.0-20.9, adult Medical History Paroxysmal atrial fibrillation Medical History Lumbar pain Medical History Essential hypertension Medical History Tachypnea on examination Medical History Dyspnea on exertion Medical History Anxiety, generalized Medical History Anemia, macrocytic Medical History Elevated LFTs Medical History Fatigue Medical History 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 Surgical History heart stent 2010 Surgical History stomach ulcer 2017 Surgical History gallbladder 2018 Surgical History whipple 2018 Surgical History colonoscopy 2020 Hospitalization History SEE SURGICAL HX [facility] Other 09-07-2023 History general Narrative - Reported* Type Description Date Medical History BMI 20.0-20.9, adult Medical History Paroxysmal atrial fibrillation Medical History Lumbar pain Medical History Essential hypertension Medical History Tachypnea on examination Medical History Dyspnea on exertion Medical History Anxiety, generalized Medical History Anemia, macrocytic Medical History Elevated LFTs Medical History Fatigue Medical History 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 Surgical History heart stent 2010 Surgical History stomach ulcer 2017 Surgical History gallbladder 2018 Surgical History whipple 2018 Surgical History colonoscopy 2020 Hospitalization History SEE SURGICAL HX [facility] Other 09-07-2023 Evaluation note* Encounter Date Diagnosis Assessment Notes Treatment Notes Treatment Clinical Notes Feb, SIRS (systemic inflammatory response syndrome) (ICD-10 - R65.10) Reviewed hospital notes and discharge summary. Overall improved. Feb, Coronary artery disease involving yuhaaviatam coronary artery of yuhaaviatam heart without angina pectoris (ICD-10 - I25.10) Chronic - continue followup w cardio and oncology. Feb, Type 2 diabetes mellitus with hyperglycemia, without long-term current use of insulin (ICD-10 - E11.65) Glucose improved from earlier this summer. Son will call with some readings at home. [facility] Other 09-07-2023 Miscellaneous Notes* Telephone Encounter - Haley Miller MA - 03/05/2023 11:34 AM EDT Patient has an appt on 03/11/23. Would you like labs, if so place orders. His PET scan is 03/11/23. Haley Miller MA documented in this encounterMer[facility]08-[facility]08-24-[facility] Instructions* Patient Instructions* Zahra Buitrago MD - 02/19/2023 4:16 PM EDT B12 shot today and every 4 weeks. Patient will continue folic acid 1 mg daily as Rx'd. PET/CT in 1-2 weeks RTC same day to review images. continue following with Dr. Caputo for DMII management. documented in this encounterMercy [facility]08-24-2023 History of Present illness Narrative* Zahra Buitrago MD - 02/19/2023 3:57 PM EDT Images from the original note were not included. NAME: Rocio Jackson CLINIC NO.: [id number] DATE OF SERVICE: February 19, 2023 ([facility]) Some elements in this clinic note that are critical to medical decision making have been carefully reviewed and included from a prior clinic note dated: November 28, 2022 ([facility]) Referring Provider: Dr. Vanessa Bejarano [...] open wounds. CTCAP done late December in [place] concerning for possible metastatic disease. Updated Visit, [...] with his son Joaquin. Worked at a [employer]. Doing well overall is at his baseline. 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 His PFTs are pending, and he was [...] by mouth three times daily with meals. nuvgzm-mozrcxdz-zjzwhlp (CREON 24) 24,000-76,000 -120,000 unit delayed release [...] 5 blood transfusions Coronary artery disease involving yuhaaviatam coronary artery Diabetes mellitus (HCC) 2017 Duodenal cancer (HCC) Dyslipidemia Fatigue Glaucoma Hypertension Myocardial infarction (HCC) 05/15/2011 PTSD (post-traumatic stress disorder) PAST SURGICAL HISTORY Procedure Laterality Date ANGIOPLASTY HX 05/15/2011 2 stents s/p [place];[facility] CHOLECYSTECTOMY 08/11/2017 [facility] COLONOSCOPY PAST SURGICAL HISTORY OF Cardiac Stents [...] which included preparing to see the patient, aiid-kl-vsof patient care, completing clinical documentation, performing a medically appropriate examination, counseling and educating the patient/family/caregiver, ordering medications, tests, or p rocedures, and independently interpreting results (not separately reported). Zahra Buitrago MD, CPE Hematology and Oncology Services Provided at: [place], [place] CC: Dr. David Caputo [address] [place] [phone] documented in this encounterMercy Health [facility]08-22-2023 Miscellaneous Notes* Telephone Encounter - Katie Seay - 02/17/2023 2:14 PM EDT Patient has an appt on 02/19. Would you like labs? documented in this encounterMercy Health Perry[facility] Hospital07-26-2023 Miscellaneous Notes* Telephone Encounter - Susan Jones RN - 01/21/2023 11:11 AM EDT FYI: Pt admitted to [facility] ICU. Presented w/ chest pain and elevated Troponin. 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 Dr Malhotra, Oncologist w/ the [facility] consulted. Copy of pt's last office note faxed to [phone]. Susan Jones RN documented in this encounterMercy Health Perry[facility] Hospital07-19-2023 Evaluation note* Encounter Date Diagnosis Assessment Notes Treatment Notes Treatment Clinical Notes Dec, Anxiety, generalized (ICD-10 - F41.1) [facility] Other 07-19-2023 Miscellaneous Notes* Telephone Encounter - [...] 01/23. CHRIS/HM: Please review and advise. Cassandra Hernandez, RN documented in this encounterMercy Health Perry[facility] Hospital07-07-2023 History general Narrative - Reported* Type Description Date Medical History BMI 20.0-20.9, adult Medical History Paroxysmal atrial fibrillation Medical History Lumbar pain Medical History Essential hypertension Medical History Tachypnea on examination Medical History Dyspnea on exertion Medical History Anxiety, generalized Medical History Anemia, macrocytic Medical History Elevated LFTs Medical History Fatigue Medical History 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 Surgical History heart stent 2010 Surgical History stomach ulcer 2016 Surgical History gallbladder 2018 Surgical History whipple 2017 Surgical History colonoscopy 2019 Hospitalization History SEE SURGICAL HX [facility] Other 07-06-2023 Evaluation note* Encounter Date Diagnosis [...] forward this info to for further help. [facility] Other 06-30-2023 Nurse Note* Katie Seay - 12/26/2022 4:03 PM EDT Patient Identification confirmed: yes. Injection given and documented on AUG per provider order. Katie Seay documented in this encounterMercy Health Perrysburg Hospital06-16-2023 History general Narrative - Reported* Type Description Date Medical History BMI 20.0-20.9, adult Medical History Paroxysmal atrial fibrillation Medical History Lumbar pain Medical History Essential hypertension Medical History Tachypnea on examination Medical History Dyspnea on exertion Medical History Anxiety, generalized Medical History Anemia, macrocytic Medical History Elevated LFTs Medical History Fatigue Medical History 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 Surgical History heart stent 2010 Surgical History stomach ulcer 2016 Surgical History gallbladder 2018 Surgical History whipple 2018 Surgical History colonoscopy 2019 Hospitalization History SEE SURGICAL HX [facility] Other 2023 Evaluation note* Encounter Date Diagnosis Assessment Notes Treatment Notes Treatment Clinical Notes Nov, Anxiety, generalized (ICD-10 - F41.1) Nov, Type 2 diabetes mellitus without complication, without long-term current use of insulin (ICD-10 - E11.9) Samples given from office Janumet - followup in 1 month. [facility] Other [facility]-02-2023 [facility]Mer[facility] Hospital06-02-2023 Nurse Note* Haley Miller MA - 11/28/2022 4:02 PM EDT Patient Identification confirmed: yes. Injection given and documented on AUG per provider order. Haley Miller MA documented in this encounterMercy Health Perry[facility] Hospital06-02-2023 Instructions* Patient Instructions* Zahra Buitrago MD - 11/28/2022 3:42 PM EDT B12 shot today and every 4 weeks. Patient will continue folic acid 1 mg daily as Rx'd. Follow up in 8 weeks for labs and B12. Needs to follow up with Dr. Caputo regarding blood sugars >400 - please send office the labs result. documented in this encounterMercy Health Perrysburg Hospital06-02-2023 History of Present illness Narrative* Zahra Buitrago MD - 11/28/2022 3:37 PM EDT Images from the original note were not included. NAME: Rocio Jackson CLINIC NO.: [id number] DATE OF SERVICE: November 28, 2022 (Iftikhar) Some elements in this clinic note that are critical to medical decision making have been carefully reviewed and included from a prior clinic note dated: October 03, 2022 (Henry) Referring Provider: Dr. Vanessa Bejarano Additional Clinicians involved in Rociomarisa TorresVentura's care: Dr. David Caputo CC: Follow up [...] with his son Joaquin. Worked at a [employer]. Doing well overall is at his baseline. 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 His PFTs are pending, and he was [...] the tongue every 5 minutes as needed. 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 Plan: grkblj-ichellqu-hpgqyle (CREON 24) 24,000-76,000 -120,000 unit delayed release capsule PAST MEDICAL HISTORY Diagnosis Date Anemia Anxiety Bleeding ulcer 11/15/2016 required 5 blood transfusions Coronary artery disease involving yuhaaviatam coronary artery Diabetes mellitus (HCC) 2017 Duodenal cancer (HCC) Dyslipidemia Fatigue Glaucoma Hypertension Myocardial infarction (HCC) 05/15/2011 PTSD (post-traumatic stress disorder) PAST SURGICAL HISTORY Procedure Laterality Date ANGIOPLASTY HX 05/15/2011 2 stents s/p [place];[facility] CHOLECYSTECTOMY 08/11/2017 [facility] COLONOSCOPY PAST SURGICAL HISTORY OF Cardiac Stents [...] which included preparing to see the patient, fbft-xo-bpah patient care, completing clinical documentation, performing a medically appropriate examination, counseling and educating the patient/family/caregiver, ordering medications, tests, or p rocedures, and independently interpreting results (not separately reported). Zahra Buitrago MD, CPE Hematology and Oncology Services Provided at: [place], [place] CC: Dr. David Caputo [facility] [place] [phone] documented in this encounterMercy Health [facility] Hospital06-01-2023 Evaluation note* Encounter Date Diagnosis Assessment Notes Treatment Notes Treatment Clinical Notes Nov, Lumbar pain (ICD-10 - M54.50) [facility] Other 05-26-2023 Evaluation note* Encounter Date Diagnosis Assessment Notes Treatment Notes Treatment Clinical Notes October, Anxiety, generalized (ICD-10 - F41.1) [facility] Other 05-05-2023 Nurse Note* Haley Miller MA - 10/31/2022 3:35 PM EDT Patient Identification confirmed: yes. Injection given and documented on AUG per provider order. Haley Miller MA documented in this encounterMercy Health [facility] Hospital05-03-2023 Miscellaneous Notes* Telephone Encounter - Rola Gordon APRN.CNP - 10/29/2022 2:43 PM EDT The following approved medication requests have been transmitted electronically. Requested Prescriptions Signed Prescriptions Disp Refills metoclopramide HCl (REGLAN) 10 mg tablet 90 tablet 1 Sig: Take 1 tablet by mouth three times daily with meals. Authorizing Provider: ROLA GORDON APRN.CNP documented in this encounterMercy Health [facility] Hospital05-02-2023 History general Narrative - Reported* Type Description Date Medical History BMI 20.0-20.9, adult Medical History Paroxysmal atrial fibrillation Medical History Lumbar pain Medical History Essential hypertension Medical History Tachypnea on examination Medical History Dyspnea on exertion Medical History Anxiety, generalized Medical History Anemia, macrocytic Medical History Elevated LFTs Medical History Fatigue Medical History 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 Surgical History heart stent 2010 Surgical History stomach ulcer 2017 Surgical History gallbladder 2018 Surgical History whipple 2018 Surgical History colonoscopy 2019 Hospitalization History SEE SURGICAL HX [facility] Other 04-07-2023 NoteMercy Hospital04-07-2023 Nurse Note* Katie Seay - 10/03/2022 4:04 PM EDT Patient Identification confirmed: yes . Injection given and documented on MAR per provider order. Katie Seay documented in this encounterMercy Health [facility] Hospital03-10-2023 Nurse Note* Haley Miller MA - 09/05/2022 2:16 PM EST Patient Identification confirmed: yes. Injection given and documented on AUG per provider order. Haley Miller MA documented in this encounterMercy Health [facility] Hospital02-22-2023 Miscellaneous Notes* Telephone Encounter - Rola Gordon APRN.CNP - 08/20/2022 10:08 AM EST The following approved medication requests have been transmitted electronically. Requested Prescriptions Signed Prescriptions Disp Refills metoclopramide HCl (REGLAN) 10 mg tablet 90 tablet 1 Sig: Take 1 tablet by mouth three times daily with meals. Authorizing Provider: ROLA GORDON APRN.CNP documented in this encounterMercy Health [facility] Hospital02-10-[address]23 [facility]02-10-2023 Instructions* Patient Instructions* Zahra Buitrago MD - 08/08/2022 3:14 PM EST B12 shot today and every 4 weeks. Patient will continue folic acid 1 mg daily as Rx'd. RTC in 8 weeks for follow-up, labs and B12 See Rola Dee documented in this encounterMercy Health [facility] Hospital02-10-2023 History of Present illness Narrative* Zahra Buitrago MD - 08/08/2022 3:00 PM EST Images from the original note were not included. NAME: Rocio Jackson CLINIC NO.: [id number] DATE OF SERVICE: August 08, 2022 (Iftikhar) [...] with his son Joaquin. Worked at a [employer]. Doing well overall is at his baseline. 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 His PFTs are pending, and he was [...] MOUTH THREE TIMES A DAY WITH MEALS erikqz-fkrumeyh-virhktj (CREON 24) 24,000-76,000 -120,000 unit delayed release [...] 5 blood transfusions Coronary artery disease involving yuhaaviatam coronary artery Diabetes mellitus (HCC) 2017 Duodenal cancer (HCC) Dyslipidemia Fatigue Glaucoma Hypertension Myocardial infarction (HCC) 05/15/2011 PTSD (post-traumatic stress disorder) PAST SURGICAL HISTORY Procedure Laterality Date ANGIOPLASTY HX 05/15/2011 2 stents s/p [place];[facility] CHOLECYSTECTOMY 08/11/2017 [facility] COLONOSCOPY PAST SURGICAL HISTORY OF Cardiac Stents [...] which included preparing to see the patient, olmj-fc-jumn patient care, completing clinical documentation, obtaining and/or reviewing separately obtained history, performing a medically appropriate examination, counseling and educating the pat ient/family/caregiver and ordering medications, tests, or procedures. Zahra Buitrago MD, CPE [place], [place] CC: David Caputo MD [address] [place] [phone] documented in this encounterMercy Health [facility] Hospital02-10-2023 Miscellaneous Notes* Telephone Encounter - Magalys Cruz RN - 08/08/2022 2:37 PM EST Received call from Paty at [facility] with urgent result: Glucose 501 Magalys Cruz RN documented in this encounterMercy Health [facility] Hospital01-19-2023 Evaluation note* Encounter Date Diagnosis Assessment Notes Treatment Notes Treatment Clinical Notes Jun, CAD in yuhaaviatam artery (ICD-10 - I25.10) Continue medications as prescribed Jun, Atypical chest pain (ICD-10 - R07.89) Called [facility] [employer] message to return my call. Patient has appointment 09/16. Requested moved up appointment and consider testing at their office as I know they would prefer. 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 Continues remission [facility] Other 01-09-2023 Miscellaneous Notes* Telephone Encounter - [...] recurrence.Thanks for calling him documented in this encounterMercy Health [facility] Hospital01-05-2023 NoteMercy Hospital01-05-2023 Nurse Note* Katie Seay - 07/03/2022 3:01 PM EST Patient Identification confirmed: yes. Injection given and documented on AUG per provider order. Katie Seay documented in this encounterMercy Health [facility] Hospital01-05-[address]23 [facility]01-05-2023 Instructions* Patient Instructions* Zahra Buitrago MD - 07/03/2022 2:18 PM EST B12 shot today and every [address] results pending today Triage to call results Thursday Patient will continue folic acid 1 mg daily as Rx'd. RTC in 4 weeks for follow-up, labs and B12 See Rola / Leila documented in this encounterMercy Health Perrysburg Hospital01-05-2023 History of Present illness Narrative* Zahra Buitrago MD - 07/03/2022 2:12 PM EST Images from the original note were not included. NAME: Rocio Jackson CLINIC NO.: [id number] DATE OF SERVICE: July 03, 2022 (cristian) Some elements in this clinic note that [...] with his son Joaquin. Worked at a [employer]. Doing well overall is at his baseline. 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 His PFTs are pending, and he was [...] MOUTH THREE TIMES A DAY WITH MEALS qkpeup-fddvuddf-zyeejjw (CREON 24) 24,000-76,000 -120,000 unit delayed release [...] 5 blood transfusions Coronary artery disease involving yuhaaviatam coronary artery Diabetes mellitus (HCC) 2017 Duodenal cancer (HCC) Dyslipidemia Fatigue Glaucoma Hypertension Myocardial infarction (HCC) 05/15/2011 PTSD (post-traumatic stress disorder) PAST SURGICAL HISTORY Procedure Laterality Date ANGIOPLASTY HX 05/15/2011 2 stents s/p [place];[facility] CHOLECYSTECTOMY 08/11/2017 [facility] COLONOSCOPY PAST SURGICAL HISTORY OF Cardiac Stents [...] which included preparing to see the patient, tzca-xe-fudl patient care, completing clinical documentation, obtaining and/or reviewing separately obtained history, performing a medically appropriate examination, counseling and educating the pat ient/family/caregiver and ordering medications, tests, or procedures. Zahra Buitrago MD, CPE [place], [place] CC: David Caputo MD [address] [place] [phone] documented in this encounterMercy Health Perrysburg Hospital12-09-2022 NoteHNO ID: [id number] Author: Sandra Patiño Service: ? Author Type: ? Type: Progress Notes Filed: 06/06/2022 2:36 PM Note Text: Patient Identification confirmed: yes. Injection given and documented on AUG per provider order. Sandra PatiñoMercy Hospital12-09-2022 NoteMercy Hospital12-09-2022 History of Present illness Narrative* Sandra Patiño - 06/06/2022 2:34 PM EST Patient Identification confirmed: yes. Injection given and documented on AUG per provider order. Sandra Patiño documented in this encounterMercy Health Perrysburg Hospital12-09-2022 Instructions* Patient Instructions* Zahra Buitrago MD - 06/06/2022 2:23 PM EST B12 shot today and every 4 weeks. Labs pending today Triage to call results Thursday Monoferric 1000 mg if indicated. Patient will continue folic acid 1 mg daily as Rx'd. RTC in 4 weeks for follow-up, labs and B12 and CT's RTC same day as scans and labs documented in this encounterMercy Health Perrysburg Hospital12-09-2022 History of Present illness Narrative* Zahra Buitrago MD - 06/06/2022 1:57 PM EST Images from the original note were not included. NAME: Rocio Jackson CLINIC NO.: [id number] DATE OF SERVICE: June 06, 2022 ([facility]) Some elements in this clinic note that [...] with his son Joaquin. Worked at a [employer]. Doing well overall is at his baseline. 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 His PFTs are pending, and he was [...] MOUTH THREE TIMES A DAY WITH MEALS otnjfy-cxngzchl-oevrgjp (CREON 24) 24,000-76,000 -120,000 unit delayed release [...] 5 blood transfusions Coronary artery disease involving yuhaaviatam coronary artery Diabetes mellitus (HCC) 2017 Duodenal cancer (HCC) Dyslipidemia Fatigue Glaucoma Hypertension Myocardial infarction (HCC) 05/15/2011 PTSD (post-traumatic stress disorder) PAST SURGICAL HISTORY Procedure Laterality Date ANGIOPLASTY HX 05/15/2011 2 stents s/p [place];[facility] CHOLECYSTECTOMY 08/11/2017 [facility] COLONOSCOPY PAST SURGICAL HISTORY OF Cardiac Stents [...] which included preparing to see the patient, bofq-mf-knbn patient care, completing clinical documentation, obtaining and/or reviewing separately obtained history, performing a medically appropriate examination, counseling and educating the pat ient/family/caregiver and ordering medications, tests, or procedures. Zahra Buitrago MD, CPE [facility] [place], [place] CC: David Caputo MD [address] [facility] [phone] documented in this encounterMercy Health Perrysburg Hospital11-15-2022 NotePROCEDURE: XR HIP LT 2 3V W PELVIS HISTORY: Low back pain ; acute left hip pain since falling one week ago COMPARISON: None. FINDINGS: BONES:No fracture, acute abnormality, or significant arthropathy. SOFT TISSUES:No visible soft tissue swelling. EFFUSION:None visible. OTHER: Negative. IMPRESSION: 1. No acute bone abnormality or significant degenerative joint disease. Electronically authenticated by: REBA REID Date: 2022-05-13 07:57[facility]11-10-2022 NoteMercy Hospital11-10-2022 History of Present illness Narrative* Zahra Buitrago MD - 05/08/2022 2:00 PM EST Images from the original note were not included. NAME: Rocio Jackson CLINIC NO.: [id number] DATE OF SERVICE: May 08, 2022 (Iftikhar) Some elements in this clinic note that are critical to medical decision making have been carefully reviewed and included from a prior clinic note dated: April 10, 2022 (Iftikhar) Referring Provider: Dr. Vanessa Bejarano Additional Clinicians involved in Rocio Jackson's care: Dr. David Cpauto CC: Follow up on anemia. 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 His PFTs are pending, and he was [...] petechiae. ALLERGIES: ALLERGIES No Known Allergies MEDICATIONS: jmgfdk-glakzhcv-mqjccfy (CREON 24) 24,000-76,000 -120,000 unit delayed release [...] 5 blood transfusions Coronary artery disease involving yuhaaviatam coronary artery Diabetes mellitus (HCC) 2017 Duodenal cancer (HCC) Dyslipidemia Fatigue Glaucoma Hypertension Myocardial infarction (HCC) 05/15/2011 PTSD (post-traumatic stress disorder) PAST SURGICAL HISTORY Procedure Laterality Date ANGIOPLASTY HX 05/15/2011 2 stents s/p [place];[facility] CHOLECYSTECTOMY 08/11/2017 [facility] COLONOSCOPY PAST SURGICAL HISTORY OF Cardiac Stents [...] which included preparing to see the patient, hqws-rw-ftpq patient care, completing clinical documentation, obtaining and/or reviewing separately obtained history, performing a medically appropriate examination, counseling and educating the pat ient/family/caregiver and ordering medications, tests, or procedures. Zahra Buitrago MD, CPE [place], [place] CC: David Caputo MD [address] [facility] [place] [phone] documented in this encounterMercy Health Perrysburg Hospital11-10-2022 Instructions* Patient Instructions* Zahra Buitrago MD [...] reticulonodular / inflammatory changes. documented in this encounterMercy Health Perrysburg Hospital10-13-2022 History of Present illness Narrative* Sofia Crouch RN - 04/10/2022 2:29 PM EDT Spoke with Pharmacy. Monoferric can be ran over 20 minutes and premeds can be omitted today per infusion protocol. Pt had recent infusion with no issues. Sofia Crouch RN documented in this encounterMercy Health Perrysburg Hospital10-13-2022 Instructions* Patient Instructions* Zahra Buitrago MD [...] reticulonodular / inflammatory changes. documented in this encounterMercy Health Perrysburg Hospital10-13-2022 History of Present illness Narrative* Zahra Buitrago MD - 04/10/2022 1:08 PM EDT Images from the original note were not included. 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 His PFTs are pending, and he was [...] petechiae. ALLERGIES: ALLERGIES No Known Allergies MEDICATIONS: yginqg-jxzptqsv-cetdpqq (CREON 24) 24,000-76,000 -120,000 unit delayed release [...] 5 blood transfusions Coronary artery disease involving yuhaaviatam coronary artery Diabetes mellitus (HCC) 2017 Duodenal cancer (HCC) Dyslipidemia Fatigue Glaucoma Hypertension Myocardial infarction (HCC) 05/15/2011 PTSD (post-traumatic stress disorder) PAST SURGICAL HISTORY Procedure Laterality Date ANGIOPLASTY HX 05/15/2011 2 stents s/p DE;[facility] CHOLECYSTECTOMY 08/11/2017 [facility] COLONOSCOPY PAST SURGICAL HISTORY OF Cardiac Stents x2 PAST SURGICAL HISTORY OF 09/2017 [facility] Social History Tobacco Use [...] which included preparing to see the patient, rzul-hl-vpyc patient care, completing clinical documentation, obtaining and/or reviewing separately obtained history, performing a medically appropriate examination, counseling and educating the pat ient/family/caregiver and ordering medications, tests, or procedures. Zahra Buitrago MD, [place], [place] CC: David Caputo MD [address] [place] [phone] documented in this encounterMercy Health Perrysburg Hospital10-12-2022 Miscellaneous Notes* Telephone Encounter - Haley Miller MA - 04/09/2022 11:43 AM EDT Patient has an appt on 04/10/22. Would you like labs, if so place orders, your orders are for everyother week. Haley Miller MA documented in this encounterMercy Health Perrysburg Hospital09-29-2022 Miscellaneous Notes* Telephone Encounter - Rola Gordon APRN.CNP - 03/27/2022 11:27 AM EDT The following approved medication requests have been transmitted electronically. Requested Prescriptions Signed Prescriptions Disp Refills rxndqg-fmzblprt-avefojg (CREON 24) 24,000-76,000 -120,000 unit delayed release capsule 540 capsule 1 Sig: Take 2 capsules by mouth three times daily with meals. Authorizing Provider: ROLA GORDON APRN.CNP * Telephone Encounter - Imelda Sean Cartagena - 03/27/2022 8:30 AM EDT Patient's insurance plan covers a 90 day supply. 90 day script pending. documented in this encounterMercy Health Perrysburg Hospital09-15-2022 Miscellaneous Notes* Telephone Encounter - Rola Gordon APRN.CNP - 03/13/2022 2:25 PM EDT The following approved medication requests have been transmitted electronically. Requested Prescriptions Signed Prescriptions Disp Refills folic acid 1 mg tablet 90 tablet 3 Sig: Take 1 tablet by mouth once daily. Authorizing Provider: ROLA GORDON APRN.CNP documented in this encounterMercy Health Perrysburg Hospital09-15-2022 History of Present illness Narrative* Rola Gordon APRN.CNP - 03/13/2022 1:00 PM EDT Images from the original note were not included. NAME: Rocio Jackson CLINIC NO.: [id number] DATE OF SERVICE: March 13, 2022 Some [...] 1000 mg today. 3. Patient did not lemon picker prescription for folic acid. Will send a new prescription to patient's pharmacy of choice, [facility] in [place]. Patient will start folic acid 1 mg [...] HPI: Updated Visit, March 13, 2022: Rocio Ventura returns for scheduled follow-up. 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 His PFTs are pending, and he was [...] by mouth three times daily with meals. jmpgml-wrlccytb-halewlb (CREON 24) 24,000-76,000 -120,000 unit delayed release [...] 5 blood transfusions Coronary artery disease involving yuhaaviatam coronary artery Diabetes mellitus (HCC) 2017 Duodenal cancer (HCC) Dyslipidemia Fatigue Glaucoma Hypertension Myocardial infarction (HCC) 05/15/2011 PTSD (post-traumatic stress disorder) PAST SURGICAL HISTORY Procedure Laterality Date ANGIOPLASTY HX 05/15/2011 2 stents s/p [place];[facility] CHOLECYSTECTOMY 08/11/2017 [facility] COLONOSCOPY PAST SURGICAL HISTORY OF Cardiac Stents [...] Age of Onset Cancer Sister Rola Gordon APRN.BJORN [place], [place] CC: Zahra Buitrago MD [address] [place] [address] [facility] [address] David Caputo MD [address] [facility] [place] [address] I spent a total of 30 minutes on the date of the service which included preparing to see the patient, jbkx-yz-ptnn patient care, completing clinical documentation, obtaining and/or reviewing separately obtained history, performing a medically appropriate examination, counseling and educating the pat ient/family/caregiver, ordering medications, tests, or procedures, independently interpreting results (not separately reported), and communicating results to the patient/family/caregiver. documented in this encounterMer[facility]09-15-2022 Miscellaneous Notes* Telephone Encounter - Fer Lopez - 03/13/2022 10:51 AM EDT 1st report of treatment-Non oncology regimen (Monoferric) Patient holds Medicare coverage and therefore no FA required. documented in this encounterMercy Health [facility]09-02-2022 History of Present illness Narrative* TRACI Andrade - 02/28/2022 9:33 AM EDT Patient is listed on the First Time Treatment Report. Patient is scheduled to receive a non-oncology treatment. No psychosocial assessment is indicated. MARINO Andrade documented in this encounterMercy Health [facility]08-22-2022 Miscellaneous Notes* Telephone Encounter - Cassandra Hernandez RN - 02/17/2022 10:57 AM EDT Pt daughter called to verify the RX reglan had been sent to [facility], [place]. sent escript 02/12. I called to verify the RX was rec'd by the pharmacy, and spoke to Too, who verifies they have it ready for the pt. Called Shiela back and she is aware it is ready for lemon picker. Cassandra Hernandez, RN documented in this encounterMercy Health Perry[facility] Hospital08-18-2022 Nurse Note* Katie Seay - 02/13/2022 3:23 PM EDT Patient Identification confirmed: yes. Injection given and documented on AUG per provider order. Katie Seay documented in this encounterMercy Health Perrysburg Hospital08-18-2022 History of Present illness Narrative* Zahra Buitrago MD - 02/13/2022 2:48 PM EDT Images from the original note were not included. 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 His PFTs are pending, and he was [...] by mouth three times daily with meals. zxwgmi-hkeppppb-erzbway (CREON 24) 24,000-76,000 -120,000 unit delayed release [...] 5 blood transfusions Coronary artery disease involving yuhaaviatam coronary artery Diabetes mellitus (HCC) 2017 Duodenal cancer (HCC) Dyslipidemia Fatigue Glaucoma Hypertension Myocardial infarction (HCC) 05/15/2011 PTSD (post-traumatic stress disorder) PAST SURGICAL HISTORY Procedure Laterality Date ANGIOPLASTY HX 05/15/2011 2 stents s/p [place];[facility] CHOLECYSTECTOMY 08/11/2017 [facility] COLONOSCOPY PAST SURGICAL HISTORY OF Cardiac Stents x2 PAST SURGICAL HISTORY OF 09/2017 [place] PICC LINE INSERT/CONSULT 08/16/2017 Social History Tobacco [...] which included preparing to see the patient, giej-ag-ghta patient care, completing clinical documentation, obtaining and/or reviewing separately obtained history, performing a medically appropriate examination, counseling and educating the pat ient/family/caregiver and ordering medications, tests, or procedures. Zahra Buitrago MD, [place], [place] CC: Zahra Buitrago MD [address] [place] [address] [facility] [address] David Caputo MD [address] [place] [phone] documented in this encounterMercy Health Perrysburg Hospital08-17-2022 Miscellaneous Notes* Telephone Encounter - Rola [...] be sent to [facility] in [place]. CHRIS: Order pending. Please review and sign. Magalys Cruz RN documented in this encounterMercy Health Perrysburg Hospital08-15-2022 Miscellaneous Notes* Telephone Encounter - Rola [...] a new script can be placed. Thanks Vreonica Hall RN documented in this encounterMercy Health Perrysburg Hospital07-21-2022 Evaluation note* Encounter Date Diagnosis Assessment [...] WILL ORDER SOME TESTING AT THIS TIME [facility] Other 06-09-2022 Nurse Note* Homa Powell Ma - 12/05/2021 3:09 PM EDT Patient unsure of any of his medications and was instructed to bring a list next time he comes. Homa Powell Ma documented in this encounterMercy Health Perrysburg Hospital06-09-2022 History of Present illness Narrative* Zahra Buitrago MD - 12/05/2021 3:00 PM EDT Images from the original note were not included. 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 His PFTs are pending, and he was [...] mg by mouth twice daily before meals. toxjvc-pcefxswb-hxbvpwq (CREON 24) 24,000-76,000 -120,000 unit cpDR Take [...] CA 19-9 BLD (K31.5) Duodenal obstruction Plan: gvyldp-aomocyaq-olulzqs (CREON 24) 24,000-76,000 -120,000 unit delayed release capsule (D50.9) Iron deficiency anemia, unspecified iron deficiency anemia type Plan: adcevz-izemoulc-mhhrrzn (CREON 24) 24,000-76,000 -120,000 unit delayed release [...] 5 blood transfusions Coronary artery disease involving yuhaaviatam coronary artery Diabetes mellitus (HCC) 2017 Duodenal cancer (HCC) Dyslipidemia Fatigue Glaucoma Hypertension Myocardial infarction (HCC) 05/15/2011 PTSD (post-traumatic stress disorder) PAST SURGICAL HISTORY Procedure Laterality Date ANGIOPLASTY HX 05/15/2011 2 stents s/p [place];[facility] CHOLECYSTECTOMY 08/11/2017 [facility] COLONOSCOPY PAST SURGICAL HISTORY OF Cardiac Stents [...] which included preparing to see the patient, njde-tt-fvge patient care, completing clinical documentation, obtaining and/or reviewing separately obtained history, performing a medically appropriate examination, counseling and educating the pat ient/family/caregiver and ordering medications, tests, or procedures. Zahra Buitrago MD, [facility] [place], [place] CC: Zahra Buitrago MD [address] [place] [address] [facility] [address] David Caputo MD [address] [place] [phone] documented in this encounterMercy Health [facility] Hospital12-16-2021 Progress note Author Monico Reyez [facility] June 13, 2021 2:01pm Note Date/Time June 13, 2021 2:00pm [facility] at [address] [address] Hem/Onc Follow Up Note - OP Signed Patient: VenturaRocio MR#: [id number] : 1955 Acct:[id number] Age/Sex: 66 / M Type: REG RCR [...] of the ampulla of Vater resected the [facility] number of years ago and then had adjuvant chemotherapy while I was at [facility]. Rocio is a patient well-known to me. 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 He has been followed since that time. Labs recently drawn at [place] and are overall negative except for mild macrocytosis. He appears to be doing overall very well Subjective/ROS - Narrative: No new complaints. [facility] - Medical History Medical History: Medical History [...] mg PO DAILY 03/04/19 [History Confirmed 12/13/20] beptip-qtluxfqn-xsrnhwg 24,000-76,000-120,000 unit capsule,delayed rel (Creon) 1cap PO TID 03/04/19 [History Confirmed 12/13/20] metoprolol succinate 25 mg capsule sprinkle, ext. release 24 hr 25 mg PO DAILY 03/04/19 [History Confirmed 12/13/20] empagliflozin 25 mg tablet (Jardiance) 25 mg PO DAILY 02/28/20 [History Confirmed 12/13/20] fbjinf-deawniat-wmbkljl 24,000-76,000-120,000 unit capsule,delayed rel (Creon) 1cap PO [...] for coordination of care (as documented) and yuhp-tn-glup counseling of patient and/or family. Dictated By: Monico Reyez MD DD/ 1359 Signed By: <Electronically signed by MD Monico Reyez> 06/13/21 1401 [facility] Work Phone: 1(336) 629-508706-17-2021 Progress note Author Monico Reyez [facility] December 13, 2020 3:06pm Note Date/Time December 13, 2020 3:05 pm [facility] [place] [address] Hem/Onc Follow Up Note - OP Signed Patient: Rocio Jackson MR#: [id number] : 1955 Acct:[id number] Age/Sex: 65 / M Type: REG RCR [...] received adjuvant capecitabine and gemcitabine. [facility] - Medical History Medical History: Medical History [...] for coordination of care (as documented) and kkgk-gq-gdek counseling of patient and/or family. Dictated By: Monico Reyez MD DD/ 1502 Signed By: <Electronically signed by MD Monico Reyez> 12/13/20 1506 [facility] Work Phone: 1(822) 187-483512-08-2020 Progress note Author Mnoico Reyez [facility] June 05, 2020 1:30pm Note Date/Time June 05, 2020 1 :18pm [facility] at [place] [id number] Hem/Onc Follow Up Note - OP Signed Patient: Rocio Jackson MR#: [id number] : 1955 Acct:[id number] Age/Sex: 64 / M Type: REG RCR [...] received adjuvant capecitabine and gemcitabine. [facility] - Medical History Medical History: Medical History [...] % (Auto) 57.8, Lymph % (Auto) 30.5, Vance % (Auto) 5.8, Eos % (Auto) 5.1, Baso % (Auto) 0.8, Neut # (Auto) 2.9, Lymph # (Auto) 1.5, Vance # (Auto) 0.3, Eos # (Auto) 0.3, [...] for coordination of care (as documented) and isrm-kp-cdrr counseling of patient and/or family. Dictated By: Monico Reyez MD DD/ 1312 Signed By: <Electronically signed by MD Monico Reyez> 06/05/20 1330 [facility] Work Phone: 1(525) 500-865009-08-2020 Progress note Author Monico Reyez [facility] March 06, 2020 1:51pm Note Date/Time March 06, 2020 1:50pm [facility] at [place] [id number] Hem/Onc Follow Up Note - OP Signed Patient: Rocio Jcakson MR#: [id number] : 1955 Acct:[id number] Age/Sex: 64 / M Type: REG RCR [...] that time. His latest CT scans at [facility] are negative. His biggestcomplaint today is weakness and fatigue. He does appear very pale overall we will check some basic blood work today and I will see him back in follow-up. [facility] - Medical History Medical History: Medical History [...] for coordination of care (as documented) and vehu-ve-meqj counseling of patient and/or family. Dictated By: Monico Reyez MD DD/ 1349 Signed By: <Electronically signed by MD Monico Reyez> 03/06/20 1640 [facility] Work Phone: 1(382) 981-174209-01-2020 Progress note Author Monico Reyez [facility] February 28, 2020 2:12pm Note Date/Time February 28, 2020 2:10pm [facility] [place] [address] Hem/Onc Follow Up Note - OP Signed Patient: Rocio Jackson MR#: [id number] : 1955 Acct:[id number] Age/Sex: 64 / M Type: REG RCR [...] that time. His latest CT scans at [facility] are negative. His biggestcomplaint today is weakness and fatigue. He does appear very pale overall we will check some basic blood work today and I will see him back in follow-up. [facility] - Medical History Medical History: Medical History [...] % (Auto) 55.0, Lymph % (Auto) 32.7, Vance % (Auto) 9.3, Eos % (Auto) 2.4, Baso % (Auto) 0.6, Neut # (Auto) 3.0, Lymph # (Auto) 1.8, Vance # (Auto) 0.5, Eos # (Auto) 0.1, [...] for coordination of care (as documented) and hetr-ag-mgms counseling of patient and/or family. Dictated By: Monico Reyez MD DD/ 1409 Signed By: <Electronically signed by MD Monico Reyez> 02/28/20 1412 [facility] Work Phone: Evaluation note* Diagnosis Cancer of [...] body of pancreas [facility]* Diagnosis Macrocytosis- Primary Other specified diseases of blood and blood-forming organs Abnormal weight loss Loss of weight Adenocarcinoma (HCC) Other malignant neoplasm without specification of site 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 documented [facility] this encounter [facility]* Diagnosis Iron deficiency anemia, unspecified iron [...] B12 deficiency type documented in this encounter [facility]* Diagnosis Macrocytosis- Primary Other specified diseases of blood and blood-forming organs Abnormal weight loss Loss of weight Adenocarcinoma (HCC) Other malignant neoplasm without specification of site 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 Anemia due to vitamin B12 deficiency, unspecified B12 deficiency type [facility] 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 Anemia due to vitamin B12 deficiency, unspecified B12 deficiency type Anemia due to folic acid deficiency, unspecified deficiency type Macrocytosis Other specified diseases of blood and blood-forming organs documented in this encounter [facility] [place] [facility]* Diagnosis Macrocytosis- Primary Other specified diseases of blood and blood-forming organs Anemia due to vitamin B12 deficiency, unspecified B12 deficiency type Anemia due to folic acid deficiency, unspecified deficiency type 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 documented in this encounter [facility] HospitalEvalunem[facility] [place] noteNo [employer] SystemsSaint [employer] Other Evaluation note* Diagnosis Macrocytosis- Primary Other specified diseases of blood and blood-forming organs Abnormal weight loss Loss of weight Adenocarcinoma (HCC) Other malignant neoplasm without specification of site 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 documented in this encounter [facility] [place] [facility]* Diagnosis Macrocytosis- Primary Other specified diseases of blood and blood-forming organs Abnormal weight loss Loss of weight Adenocarcinoma (HCC) Other malignant neoplasm without specification of site 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 Abnormal weight loss Loss of weight Anemia due to vitamin B12 deficiency, unspecified B12 deficiency type Macrocytosis Other specified diseases of blood and blood-forming organs Iron deficiency anemia, unspecified iron deficiency anemia type documented in this encounter [facility] [place] note* Diagnosis 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 documented in this encounter [facility] [place] note* Diagnosis 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 Anemia due to vitamin B12 deficiency, unspecified B12 deficiency type Iron deficiency anemia, unspecified iron deficiency anemia type documented in this encounter [facility]Evalun[facility] [place] note* Diagnosis Macrocytosis- Primary Other specified diseases of blood and blood-forming organs Abnormal weight loss Loss of weight Adenocarcinoma (HCC) Other malignant neoplasm without specification of site 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 documented in this encounter [facility] [place] note* Diagnosis 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 Anemia due to vitamin B12 deficiency, unspecified B12 deficiency type Severe protein-calorie malnutrition (HCC) Other severe protein-calorie malnutrition documented in this encounter [facility] [place] [facility]* Diagnosis Macrocytosis- Primary Other specified diseases of blood and blood-forming organs Abnormal weight loss Loss of weight Adenocarcinoma (HCC) Other malignant neoplasm without specification of site 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 documented in this encounter [facility] [place] [facility]* Diagnosis Iron deficiency anemia, unspecified iron deficiency anemia type- Primary History of gastric cancer Rectal bleeding Hemorrhage of rectum and anus documented [facility] Narrative - Reported* Type Description Date Surgical History heart stent Surgical History stomach ulcer 2017 Surgical History gallbladder 2018 Surgical History whipple 2018 [facility] Other History general Narrative - Reported* Type Description Date Medical History BMI 20.0-20.9, adult Medical History Paroxysmal atrial fibrillation Medical History Lumbar pain Medical History Essential hypertension Medical History Tachypnea on examination Medical History Dyspnea on exertion Medical History Anxiety, generalized Medical History Anemia, macrocytic Medical History Elevated LFTs Medical History Fatigue Medical History 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 Surgical History heart stent 2010 Surgical History stomach ulcer 2016 Surgical History gallbladder 2018 Surgical History whipple 2017 Surgical History colonoscopy 2019 Hospitalization History SEE SURGICAL HX [facility] Other InstructionsNot on filedocumented in this encounter [facility] (narr[facility])* Diagnostic Procedure Only (Routine) - Authorized Specialty Diagnoses / Procedures Referred By Mrailee nathan Referred To Contact MOLECULAR & FUNCTIONAL IMAGING Diagnoses Cancer of ampulla of Vater (HCC) Procedures NM PET/CT SKULL-THIGH INITIAL PET IMAGING CT ATTENUATION SKULL BASE MID-THIGH Zahra Buitrago MD [address] [place] [address] [place] [address] Molecular & Functional Imaging [address] [place] [address] Referral ID Status Reason Start Date Expiration Date Visits Requested Visits Authorized [id number] Authorized Auto-Generat ed Referral 03/05/2023 03/20/2024 1 1 [facility] Summary Purpose Family History Unknown Family [...] Description Status Resuscitation FULL CODE Verified By [facility] Record Only Advance Directive Response Recorded Date/ Time Advance Directives No February 14, 2023 8:12am Reason for Referral Specialty Diagnoses / Procedures [facility] To Contact CT IM[facility]ING Diagnoses Iron deficiency anemia, unspecified iron deficiency anemia type 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) Procedures CT CHEST W IVCON DIAGNOSTIC COMPUTED TOMOGRAPHY THORAX W/CONTRAST Zahra Buitrago MD [address] [place] [address] Ct Imaging Referral ID Status Reason Start Date Expiration Date Visits Requested Visits Authorized [id number] Authorized Auto-Generat ed Referral 02/04/2022 01/04/2023 1 1 Specialty Diagnoses / Procedures [facility] Referred To Contact CT IMAGING Diagnoses Iron deficiency anemia, unspecified iron deficiency anemia type 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) Procedures CT ABD/PEL W IVCON CT ABD & PELVIS W/CONTRAST Zahra Buitrago MD [address] [place] [address] Ct Imaging Referral ID Status Reason Start Date Expiration Date Visits Requested Visits Authorized [id number] Authorized Auto-Generat ed Referral 02/04/2022 01/04/2023 1 1 Specialty Diagnoses / Procedures [facility] Referred To Contact CT IMAGING Diagnoses Interstitial pulmonary disease (HCC) Cancer of ampulla of Vater (HCC) Anemia due to vitamin B12 deficiency, unspecified B12 deficiency type Procedures CT CHEST W IVCON DIAGNOSTIC COMPUTED TOMOGRAPHY THORAX W/CONTRAST Zahra Buitrago MD [address] [place] [address] [place] [address] Ct Imaging Referral ID Status Reason Start Date Expiration Date Visits Requested Visits Authorized [id number] Authorized Auto-Generat ed Referral 07/04/2022 07/06/2023 1 1 Specialty Diagnoses / Procedures Referred By [facility] Referred To Contact CT IMAGING Diagnoses Interstitial pulmonary disease (HCC) Cancer of ampulla of Vater (HCC) Anemia due to vitamin B12 deficiency, unspecified B12 deficiency type Procedures CT ABD/PEL W IVCON CT ABD & PELVIS W/CONTRAST Zahra Buitrago MD [address] [place] [address] [place] [address] Ct Imaging Referral ID Status Reason Start Date Expiration Date Visits Requested Visits Authorized [id number] Authorized Auto-Generat ed Referral 07/04/2022 07/06/2023 1 1 Reason *FU 12/08 Last 2 O V and xray results - thank you Diagnosis 1 Lumbar pain (M54.50) Referral Organization [facility] Referring Provider First Name David Referring Provider Last Name Harshal Referring Provider Specialty [facility] Referred Organization [facility] Referred Provider Gladis Lopez Referred Address [address] [place], [place],[address] Referred Provider Specialty Pain Medicin e Referral Priority Routine General Notes Dorene Gunter 02:06:36 PM >received today, attachments made, notes locked, referral faxed Clinical Notes F: [phone] Specialty Diagnoses / Procedures Referred By Cont[facility] t Referred To Contact CT IMAGING Diagnoses Cancer of ampulla of Vater (HCC) Anemia due to vitamin B12 deficiency, unspecified B12 deficiency type Severe protein-calorie malnutrition (HCC) Procedures CT CHEST W IVCON DIAGNOSTIC COMPUTED TOMOGRAPHY THORAX W/CONTRAST Zahra Buitrago MD [address] [place] [address] [place] [address] [phone] [id number] Referral ID Status Reason Start Date Expiration Date Visits Requested Visits Authorized [id number] Authorized Auto-Generat ed Referral 06/29/2023 04/14/2024 1 1 Specialty Diagnoses / Procedures Referred By Contac t Referred To Contact CT IMAGING Diagnoses Cancer of ampulla of Vater (HCC) Anemia due to vitamin B12 deficiency, unspecified B12 deficiency type Severe protein-calorie malnutrition (HCC) Procedures CT ABD/PEL W IVCON CT ABD & PELVIS W/CONTRAST Zahra Buitrago MD [address] [place] [address] [place] [address] [place] [id number] Referral ID Status Reason Start Date Expiration Date Visits Requested Visits Authorized [id number] Authorized Auto-Generat ed Referral 06/29/2023 04/14/2024 1 1 Specialty Diagnoses / Procedures Referred By Contac t Referred To Contact Diagnoses Iron deficiency anemia, unspecified iron deficiency anemia type History of gastric cancer Rectal bleeding Procedures EGD / Colonoscopy Rick Zapata DO [address] [place] [id number] Referral ID Status Reason Start Date Expiration Date V isits Requested Visits Authorized [id number] Pending Review 07/17/2023 07/16/2024 1 1 Medications Administered Section Inactive Administered [...] 1,000 mcg, INTRAMUSCULAR, ONCE, 1 dose, On Thu07/03/22 at 1430 Given 07/03/2022 2:30 PM EST [...] section and content) DATE CREATED AUTHOR 12/17/2017 [facility] DATE CREATED AUTHOR AUTHOR'S ORGANIZ ATION 12/31/2017 [facility] DATE CREATED AUTHOR AUTHOR'S ORGANIZ ATION 07/22/2022 [facility] DATE CREATED AUTHOR AUTHOR'S ORGANIZ ATION 09/17/2022 [facility] DATE CREATED AUTHOR AUTHOR'S ORGANIZ ATION 10/03/2022 [facility] DATE CREATED AUTHOR AUTHOR'S ORGANIZ ATION 02/28/2023 [facility] DATE CREATED AUTHOR AUTHOR'S ORGANIZ ATION 04/11/2023 [facility] Comments (unrecognize d section and content) In the event this informatio n is protected by the Federal Confidentiality of Alcohol and Drug Abuse Patient Records regulations: The Federal rules restrict any use of the information to criminally investigate or prosecute any alcohol or drug abuse patient.[facility] the event this information is protected by the Federal Confidentiality of Alcohol and Drug Abuse Patient Records regulations: The Federal rules restrict any use of the information to criminally investigate or prosecute any alcohol or drug abuse patient.[facility] HospitalIn the event this information is protected by the Federal Confidentiality of Alcohol and Drug Abuse Patient Records regulations: The Federal rules restrict any use of the information to criminally investigate or prosecute any alcohol or drug abuse patient.[facility] HospitalIn the event this information is protected by the Federal Confidentiality of Alcohol and Drug Abuse Patient Records regulations: The Federal rules restrict any use of the information to criminally investigate or prosecute any alcohol or drug abuse patient.[facility] HospitalIn the event this information is protected by the Federal Confidentiality of Alcohol and Drug Abuse Patient Records regulations: The Federal rules restrict any use of the information to criminally investigate or prosecute any alcohol or drug abuse patient.[facility] HospitalIn the event this information is protected by the Federal Confidentiality of Alcohol and Drug Abuse Patient Records regulations: The Federal rules restrict any use of the information to criminally investigate or prosecute any alcohol or drug abuse patient.[facility] HospitalIn the event this information is protected by the Federal Confidentiality of Alcohol and Drug Abuse Patient Records regulations: The Federal rules restrict any use of the information to criminally investigate or prosecute any alcohol or drug abuse patient.[facility] HospitalIn the event this information is protected by the Federal Confidentiality of Alcohol and Drug Abuse Patient Records regulations: The Federal rules restrict any use of the information to criminally investigate or prosecute any alcohol or drug abuse patient.[facility] HospitalIn the event this information is protected by the Federal Confidentiality of Alcohol and Drug Abuse Patient Records regulations: The Federal rules restrict any use of the information to criminally investigate or prosecute any alcohol or drug abuse patient.[facility] HospitalIn the event this information is protected by the Federal Confidentiality of Alcohol and Drug Abuse Patient Records regulations: The Federal rules restrict any use of the information to criminally investigate or prosecute any alcohol or drug abuse patient.[facility] HospitalIn the event this information is protected by the Federal Confidentiality of Alcohol and Drug Abuse Patient Records regulations: The Federal rules restrict any use of the information to criminally investigate or prosecute any alcohol or drug abuse patient.[facility] HospitalIn the event this information is protected by the Federal Confidentiality of Alcohol and Drug Abuse Patient Records regulations: The Federal rules restrict any use of the information to criminally investigate or prosecute any alcohol or drug abuse patient.[facility] HospitalIn the event this information is protected by the Federal Confidentiality of Alcohol and Drug Abuse Patient Records regulations: The Federal rules restrict any use of the information to criminally investigate or prosecute any alcohol or drug abuse patient.[facility] HospitalIn the event this information is protected by the Federal Confidentiality of Alcohol and Drug Abuse Patient Records regulations: The Federal rules restrict any use of the information to criminally investigate or prosecute any alcohol or drug abuse patient.[facility] HospitalIn the event this information is protected by the Federal Confidentiality of Alcohol and Drug Abuse Patient Records regulations: The Federal rules restrict any use of the information to criminally investigate or prosecute any alcohol or drug abuse patient.[facility] HospitalIn the event this information is protected by the Federal Confidentiality of Alcohol and Drug Abuse Patient Records regulations: The Federal rules restrict any use of the information to criminally investigate or prosecute any alcohol or drug abuse patient.[facility] HospitalIn the event this information is protected by the Federal Confidentiality of Alcohol and Drug Abuse Patient Records regulations: The Federal rules restrict any use of the information to criminally investigate or prosecute any alcohol or drug abuse patient.[facility] HospitalIn the event this information is protected by the Federal Confidentiality of Alcohol and Drug Abuse Patient Records regulations: The Federal rules restrict any use of the information to criminally investigate or prosecute any alcohol or drug abuse patient.[facility] HospitalIn the event this information is protected by the Federal Confidentiality of Alcohol and Drug Abuse Patient Records regulations: The Federal rules restrict any use of the information to criminally investigate or prosecute any alcohol or drug abuse patient.[facility] HospitalIn the event this information is protected by the Federal Confidentiality of Alcohol and Drug Abuse Patient Records regulations: The Federal rules restrict any use of the information to criminally investigate or prosecute any alcohol or drug abuse patient.[facility] HospitalIn the event this information is protected by the Federal Confidentiality of Alcohol and Drug Abuse Patient Records regulations: The Federal rules restrict any use of the information to criminally investigate or prosecute any alcohol or drug abuse patient.[facility] HospitalIn the event this information is protected by the Federal Confidentiality of Alcohol and Drug Abuse Patient Records regulations: The Federal rules restrict any use of the information to criminally investigate or prosecute any alcohol or drug abuse patient.[facility] HospitalIn the event this information is protected by the Federal Confidentiality of Alcohol and Drug Abuse Patient Records regulations: The Federal rules restrict any use of the information to criminally investigate or prosecute any alcohol or drug abuse patient.[facility] HospitalIn the event this information is protected by the Federal Confidentiality of Alcohol and Drug Abuse Patient Records regulations: The Federal rules restrict any use of the information to criminally investigate or prosecute any alcohol or drug abuse patient.[facility] HospitalIn the event this information is protected by the Federal Confidentiality of Alcohol and Drug Abuse Patient Records regulations: The Federal rules restrict any use of the information to criminally investigate or prosecute any alcohol or drug abuse patient.[facility] HospitalIn the event this information is protected by the Federal Confidentiality of Alcohol and Drug Abuse Patient Records regulations: The Federal rules restrict any use of the information to criminally investigate or prosecute any alcohol or drug abuse patient.[facility] HospitalIn the event this information is protected by the Federal Confidentiality of Alcohol and Drug Abuse Patient Records regulations: The Federal rules restrict any use of the information to criminally investigate or prosecute any alcohol or drug abuse patient.[facility] HospitalIn the event this information is protected by the Federal Confidentiality of Alcohol and Drug Abuse Patient Records regulations: The Federal rules restrict any use of the information to criminally investigate or prosecute any alcohol or drug abuse patient.[facility] HospitalIn the event this information is protected by the Federal Confidentiality of Alcohol and Drug Abuse Patient Records regulations: The Federal rules restrict any use of the information to criminally investigate or prosecute any alcohol or drug abuse patient.[facility] HospitalIn the event this information is protected by the Federal Confidentiality of Alcohol and Drug Abuse Patient Records regulations: The Federal rules restrict any use of the information to criminally investigate or prosecute any alcohol or drug abuse patient.[facility] HospitalIn the event this information is protected by the Federal Confidentiality of Alcohol and Drug Abuse Patient Records regulations: The Federal rules restrict any use of the information to criminally investigate or prosecute any alcohol or drug abuse patient.[facility] HospitalIn the event this information is protected by the Federal Confidentiality of Alcohol and Drug Abuse Patient Records regulations: The Federal rules restrict any use of the information to criminally investigate or prosecute any alcohol or drug abuse patient.[facility] HospitalIn the event this information is protected by the Federal Confidentiality of Alcohol and Drug Abuse Patient Records regulations: The Federal rules restrict any use of the information to criminally investigate or prosecute any alcohol or drug abuse patient.[facility] HospitalIn the event this information is protected by the Federal Confidentiality of Alcohol and Drug Abuse Patient Records regulations: The Federal rules restrict any use of the information to criminally investigate or prosecute any alcohol or drug abuse patient.[facility] HospitalIn the event this information is protected by the Federal Confidentiality of Alcohol and Drug Abuse Patient Records regulations: The Federal rules restrict any use of the information to criminally investigate or prosecute any alcohol or drug abuse patient.[facility] HospitalIn the event this information is protected by the Federal Confidentiality of Alcohol and Drug Abuse Patient Records regulations: The Federal rules restrict any use of the information to criminally investigate or prosecute any alcohol or drug abuse patient.[facility] HospitalIn the event this information is protected by the Federal Confidentiality of Alcohol and Drug Abuse Patient Records regulations: The Federal rules restrict any use of the information to criminally investigate or prosecute any alcohol or drug abuse patient.[facility] HospitalIn the event this information is protected by the Federal Confidentiality of Alcohol and Drug Abuse Patient Records regulations: The Federal rules restrict any use of the information to criminally investigate or prosecute any alcohol or drug abuse patient.[facility] HospitalIn the event this information is protected by the Federal Confidentiality of Alcohol and Drug Abuse Patient Records regulations: The Federal rules restrict any use of the information to criminally investigate or prosecute any alcohol or drug abuse patient.[facility] HospitalIn the event this information is protected by the Federal Confidentiality of Alcohol and Drug Abuse Patient Records regulations: The Federal rules restrict any use of the information to criminally investigate or prosecute any alcohol or drug abuse patient.[facility] HospitalIn the event this information is protected by the Federal Confidentiality of Alcohol and Drug Abuse Patient Records regulations: The Federal rules restrict any use of the information to criminally investigate or prosecute any alcohol or drug abuse patient.[facility] HospitalIn the event this information is protected by the Federal Confidentiality of Alcohol and Drug Abuse Patient Records regulations: The Federal rules restrict any use of the information to criminally investigate or prosecute any alcohol or drug abuse patient.[facility] HospitalIn the event this information is protected by the Federal Confidentiality of Alcohol and Drug Abuse Patient Records regulations: The Federal rules restrict any use of the information to criminally investigate or prosecute any alcohol or drug abuse patient.[facility] HospitalIn the event this information is protected by the Federal Confidentiality of Alcohol and Drug Abuse Patient Records regulations: The Federal rules restrict any use of the information to criminally investigate or prosecute any alcohol or drug abuse patient.[facility] Care Teams (unrecognized sec tion and content) Diesel Engine Engineer Relationship Specialty Start Date End Date David Caputo MD [address] [place] [id number] PCP - General Family Practice 12/13/19 Jose Segura DO Physician Hematology/Oncology 07/13/19 Rola Gordon, DAIRY SUPPLIES SALES REPRESENTATIVE.SOCIAL WORKER [address] [place] [address] Nurse Practitioner Hematology/Oncology 07/13/19 Diesel Engine Engineer Relationship Specialty Start Date End Date David Caputo MD [address] [place] [address] PCP - General Family Practice 12/13/19 Jose Segura DO Physician Hematology/Oncology 07/13/19 Rola Gordon, DAIRY SUPPLIES SALES REPRESENTATIVE.SOCIAL WORKER [address] [place] [address] Nurse Practitioner Hematology/Oncology 07/13/19 Diesel Engine Engineer Relationship Specialty Start Date End Date David Caputo MD [address] [place] [address] PCP - General Family Practice 12/13/19 Jose Segura DO Physician Hematology/Oncology 07/13/19 Rola Gordon, DAIRY SUPPLIES SALES REPRESENTATIVE.SOCIAL WORKER [address] [facility] [facility] [place] [address] Nurse Practitioner Hematology/Oncology 07/13/19 Diesel Engine Engineer Relationship Specialty Start Date End Date David Caputo MD [address] [place] [address] PCP - General Family Practice 12/13/19 Jose Segura DO Physician Hematology/Oncology 07/13/19 Rola Gordon, DAIRY SUPPLIES SALES REPRESENTATIVE.[facility] [address] [place] [address] Nurse Practitioner Hematology/Oncology 07/13/19 Diesel Engine Engineer Relationship Specialty Start Date End Date David Caputo MD [address] [place] [address] PCP - General Family Practice 12/13/19 Jose Sgeura DO Physician Hematology/Oncology 07/13/19 Rola Gordon, DAIRY SUPPLIES SALES REPRESENTATIVE.SOCIAL WORKER [address] [place] [address] Nurse Practitioner Hematology/Oncology 07/13/19 Diesel Engine Engineer Relationship Specialty Start Date End Date David Caputo MD [address] [place] [address] PCP - General Family Practice 12/13/19 Jose Segura DO Physician Hematology/Oncology 07/13/19 Rola Gordon, DAIRY SUPPLIES SALES REPRESENTATIVE.SOCIAL WORKER [address] [place] [address] Nurse Practitioner Hematology/Oncology 07/13/19 Diesel Engine Engineer Relationship Specialty Start Date End Date David Caputo MD [address] [place] [address] PCP - General Family Practice 12/13/19 Jose Segura DO Physician Hematology/Oncology 07/13/19 Rola Gordon, DAIRY SUPPLIES SALES REPRESENTATIVE.[facility] [address] [place] [address] Nurse Practitioner Hematology/Oncology 07/13/19 Diesel Engine Engineer Relationship Specialty Start Date End Date David Caputo MD [address] [place] [address] PCP - General Family Practice 12/13/19 Jose Segura DO Physician Hematology/Oncology 07/13/19 Rola Gordon, DAIRY SUPPLIES SALES REPRESENTATIVE.[facility] [address] [place] [address] Nurse Practitioner Hematology/Oncology 07/13/19 Diesel Engine Engineer Relationship Specialty Start Date End Date David Caputo MD [address] [place] [address] PCP - General Family Practice 12/13/19 Jose Segura DO Physician Hematology/Oncology 07/13/19 Rola Gordon, DAIRY SUPPLIES SALES REPRESENTATIVE.SOCIAL WORKER [address] [place] [address] Nurse Practitioner Hematology/Oncology 07/13/19 Diesel Engine Engineer Relationship Specialty Start Date End Date David Caputo MD [address] [place] [address] PCP - General Family Practice 12/13/19 Jose Segura DO Physician Hematology/Oncology 07/13/19 Rola Gordon, DAIRY SUPPLIES SALES REPRESENTATIVE.SOCIAL WORKER [address] [place] [address] Nurse Practitioner Hematology/Oncology 07/13/19 Diesel Engine Engineer Relationship Specialty Start Date End Date David Caputo MD [address] [place] [id number] PCP - General Family Practice 12/13/19 Jose Segura DO Physician Hematology/Oncology 07/13/19 Rola Gordon, DAIRY SUPPLIES SALES REPRESENTATIVE.SOCIAL WORKER [address] [place] [address] Nurse Practitioner Hematology/Oncology 07/13/19 Diesel Engine Engineer Relationship Specialty Start Date End Date David Caputo MD [address] [place] [address] PCP - General Family Medicine 12/13/19 Jose Segura DO Physician Hematology/Oncology 07/13/19 Rola Gordon, DAIRY SUPPLIES SALES REPRESENTATIVE.SOCIAL WORKER [address] [place] [address] Nurse Practitioner Hematology/Oncology 07/13/19 Diesel Engine Engineer Relationship Specialty Start Date End Date David Caputo MD [address] [place] [address] PCP - General Family Medicine 12/13/19 Jose Segura DO Physician Hematology/Oncology 07/13/19 Rola Gordon, DAIRY SUPPLIES SALES REPRESENTATIVE.SOCIAL WORKER [address] [place] [address] Nurse Practitioner Hematology/Oncology 07/13/19 Diesel Engine Engineer Relationship Specialty Start Date End Date David Caputo MD [address] [place] [address] PCP - General Family Medicine 12/13/19 Jose Segura DO Physician Hematology/Oncology 07/13/19 Rola Gordon, DAIRY SUPPLIES SALES REPRESENTATIVE.SOCIAL WORKER [address] [place] [address] Nurse Practitioner Hematology/Oncology 07/13/19 Diesel Engine Engineer Relationship Specialty Start Date End Date David Caputo MD [address] [place] [address] PCP - General Family Medicine 12/13/19 Jose Segura DO Physician Hematology/Oncology 07/13/19 Rola Gordon, DAIRY SUPPLIES SALES REPRESENTATIVE.SOCIAL WORKER [address] [place] [address] Nurse Practitioner Hematology/Oncology 07/13/19 Diesel Engine Engineer Relationship Specialty Start Date End Date David Caputo MD [address] [place] [address] PCP - General Family Medicine 12/13/19 Jose Segura DO Physician Hematology/Oncology 07/13/19 Rola Gordon, DAIRY SUPPLIES SALES REPRESENTATIVE.SOCIAL WORKER [address] [place] [address] Nurse Practitioner Hematology/Oncology 07/13/19 Diesel Engine Engineer Relationship Specialty Start Date End Date David Caputo MD [address] [place] [address] PCP - General Family Medicine 12/13/19 Jose Segura DO Physician Hematology/Oncology 07/13/19 Rola oGrdon, DAIRY SUPPLIES SALES REPRESENTATIVE.[address] [place] [address] Nurse Practitioner Hematology/Oncology 07/13/19 Diesel Engine Engineer Relationship Specialty Start Date End Date David Caputo MD [address] [place] [address] PCP - General Family Medicine 12/13/19 Jose Segura DO Physician Hematology/Oncology 07/13/19 Rola Gordon, DAIRY SUPPLIES SALES REPRESENTATIVE.[facility] [address] [place] [address] Nurse Practitioner Hematology/Oncology 07/13/19 Diesel Engine Engineer Relationship Specialty Start Date End Date David Caputo MD [address] [place] [address] PCP - General Family Medicine 12/13/19 Jose Segura DO Physician Hematology/Oncology 07/13/19 Rola Gordon, DAIRY SUPPLIES SALES REPRESENTATIVE.[facility] [address] [place] [address] Nurse Practitioner Hematology/Oncology 07/13/19 Diesel Engine Engineer Relationship Specialty Start Date End Date David Caputo MD [address] [place] [address] PCP - General Family Medicine 12/13/19 Jose Segura DO Physician Hematology/Oncology 07/13/19 Rola Gordon, DAIRY SUPPLIES SALES REPRESENTATIVE.[facility] [address] [place] [address] Nurse Practitioner Hematology/Oncology 07/13/19 Diesel Engine Engineer Relationship Specialty Start Date End Date aDvid Caputo MD [address] [place] [address] PCP - General Family Medicine 12/13/19 Jose Segura DO Physician Hematology/Oncology 07/13/19 Rola Gordon, DAIRY SUPPLIES SALES REPRESENTATIVE.SOCIAL WORKER [address] [place] [address] Nurse Practitioner Hematology/Oncology 07/13/19 Diesel Engine Engineer Relationship Specialty Start Date End Date David Caputo MD [address] [place] [address] PCP - General Family Medicine 12/13/19 Jose Segura DO Physician Hematology/Oncology 07/13/19 Rola Gordon, DAIRY SUPPLIES SALES REPRESENTATIVE.SOCIAL WORKER [address] [place] [address] Nurse Practitioner Hematology/Oncology 07/13/19 Diesel Engine Engineer Relationship Specialty Start Date End Date David Caputo MD [address] [place] [address] PCP - General Family Medicine 12/13/19 Jose Segura DO Physician Hematology/Oncology 07/13/19 Rola Gordon, DAIRY SUPPLIES SALES REPRESENTATIVE.SOCIAL WORKER [address] [place] [address] Nurse Practitioner Hematology/Oncology 07/13/19 Diesel Engine Engineer Relationship Specialty Start Date End Date David Caputo MD [address] [place] [id number] PCP - General Family Medicine 12/13/19 Jose Segura DO Physician Hematology/Oncology 07/13/19 Rola Gordon, DAIRY SUPPLIES SALES REPRESENTATIVE.SOCIAL WORKER [address] [place] [address] Nurse Practitioner Hematology/Oncology 07/13/19 Diesel Engine Engineer Relationship Specialty Start Date End Date David Caputo MD [address] [place] [address] PCP - General Family Medicine 12/13/19 Jose Segura DO Physician Hematology/Oncology 07/13/19 Rola Gordon, [employer]PPLIES SALES REPRESENTATIVE.SOCIAL WORKER [address] [address] Nurse Practitioner Hematology/Oncology 07/13/19 Diesel Engine Engineer Relationship Specialty Start Date End Date David Caputo MD [address] [place] [address] PCP - General Family Medicine 12/13/19 Jose Segura DO Physician Hematology/Oncology 07/13/19 Rola Gordon, DAIR[employer] SUPPLIES SALES REPRESENTATIVE.SOCIAL WORKER [address] [place], [place] [id number] Nurse Practitioner Hematology/Oncology 07/13/19 Diesel Engine Engineer Relationship Specialty Start Date End Date David Caputo MD [address] [place] [address] PCP - General Family Medicine 12/13/19 Jose Segura DO Physician Hematology/Oncology 07/13/19 Rola Gordon, [employer] SUPPLIES SALES REPRESENTATIVE.SOCIAL WORKER [address] [place] [address] Nurse Practitioner Hematology/Oncology 07/13/19 Team Status: Active Member Role Status Dates David Caputo MD Primary Care Provider Active Team Status: Inactive Member Role Status Dates David Caputo MD Primary Care Provider Active Adriane Espitia MD Attending Provider Active Diesel Engine Engineer Relationship Specialty Start Date End Date David Caputo MD [address] [place] [address] PCP - General Family Medicine 12/13/19 Jose Segura DO Physician Hematology/Oncology 07/13/19 Rola Gordon, DAIR[employer] SUPPLIES SALES REPRESENTATIVE.SOCIAL WORKER [address] [place] [address] [place] [address] Nurse Practitioner Hematology/Oncology 07/13/19 Diesel Engine Engineer Relationship Specialty Start Date End Date David Caputo MD [address] [place] [address] PCP - General Family Medicine 12/13/19 Jose Segura DO Physician Hematology/Oncology 07/13/19 Rola Gordon, DAIR[employer] SUPPLIES SALES REPRESENTATIVE.SOCIAL WORKER [address] [place] [address] Nurse Practitioner Hematology/Oncology 07/13/19 Diesel Engine Engineer Relationship Specialty Start Date End Date David Caputo MD [address] [place] [address] PCP - General Family Medicine 12/13/19 Jose Segura DO Physician Hematology/Oncology 07/13/19 Rola Gordon, DAIR[employer] SUPPLIES SALES REPRESENTATIVE.SOCIAL WORKER [address] [place] [address] Nurse Practitioner Hematology/Oncology 07/13/19 Diesel Engine Engineer Relationship Specialty Start Date End Date David Caputo MD [address] [place] [address] PCP - General Family Medicine 12/13/19 Jose Segura DO Physician Hematology/Oncology 07/13/19 Rola Gordon, DAIR[employer] SUPPLIES SALES REPRESENTATIVE.SOCIAL WORKER [address] [place] [address] Nurse Practitioner Hematology/Oncology 07/13/19 Diesel Engine Engineer Relationship Specialty Start Date End Date David Caputo MD [address] [place] [id number] PCP - General Family Medicine 12/13/19 Jose Segura DO Physician Hematology/Oncology 07/13/19 Rola Gordon, DAIR[employer] SUPPLIES SALES REPRESENTATIVE.SOCIAL WORKER [address] [place] [address] Nurse Practitioner Hematology/Oncology 07/13/19 Diesel Engine Engineer Relationship Specialty Start Date End Date David Caputo MD [address] [place] [phone] PCP - General Family Medicine 12/13/19 Jose Segura DO Physician Hematology/Oncology 07/13/19 Rola Gordon, DAIR[employer] SUPPLIES SALES REPRESENTATIVE.SOCIAL WORKER [address] [place] [address] Nurse Practitioner Hematology/Oncology 07/13/19 Diesel Engine Engineer Relationship Specialty Start Date End Date Davdi Caputo MD [address] [place] [phone] PCP - General Family Medicine 12/13/19 Jose Segura DO Physician Hematology/Oncology 07/13/19 Rola Gordon, DAIR[employer]IES SALES REPRESENTATIVE.SOCIAL WORKER [address] [place] [address] Nurse Practitioner Hematology/Oncology 07/13/19 Diesel Engine Engineer Relationship Specialty Start Date End Date David Caputo MD [address] [place] [address] PCP - General Family Medicine 07/16/23 Reason for Visit (unrecogniz ed section and content) Reason Comments cancer of ampulla of vater Reason Comments Care Coordination Medication question Reason Onset Date Comments Refill Request 02/11/2022 Reason Comments Refill 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 [facility]. provides no warranty or guarantee of the accuracy or completeness of information in this document.
== END 2023-07-27 14:40 | disposition home or self-care (01) ==
LOC: PST 14:41
PROVIDERS: PCP Family Medicine; Visit Provider Surgery
DX: Z01.818 Encounter for other preprocedural examination (principal); D50.9 Iron deficiency anemia, unspecified; Z85.028 Personal history of other malignant neoplasm of stomach; K62.5 Hemorrhage of anus and rectum

== ENCOUNTER 2023-08-05 07:31 | Day surgery (SDC) | payer MEDICARE, SELFPAY ==
--- OUTSIDE RECORDS SUMMARY | 2023-08-05 07:37 | XMS_ITS | CCD ---
Author Name Unknown Address [address] [place] [address] Organization [facility] Care Team Providers Care Timber Supervisor Name Role Phone MICHAEL JOLLEY) Unavailable Unavailable MICHAEL JOLLEY) Unavailable Unavailable YAMILE CERDA Unavailable Unavailable MICHAEL JOLLEY) Unavailable Unavailable MICHAEL JOLLEY) Unavailable Unavailable MICHAEL JOLLEY) Unavailable Unavailable MICHAEL JOLLEY) Unavailable Unavailable HARMONY HINOJOSA Unavailable Unavailable MAU DUFFY Unavailable Unavailable ADRIANE NICHOLS Unavailable Unavailab manolo Unavailable Unavailable Jose Segura DO Unavailable Henry COMMERCIAL CREDIT OFFICER.OCCUPATIONAL HEALTH NURSE MANAGER, Rola Unavailable David Caputo MD Primary Care Provider Nate Hanson Unavailable Jose Segura DO Unavailable [place] COMMERCIAL CREDIT OFFICER.OCCUPATIONAL HEALTH NURSE MANAGER, Rola Unavailable David Caputo MD Primary Care Provider David Caputo Unavailable Jose Segura DO Unavailable David Caputo MD Primary Care Provider David Caputo MD Primary Care Provider Jose Segura DO Unavailable Henry COMMERCIAL CREDIT OFFICER.OCCUPATIONAL HEALTH NURSE MANAGER, Rola Unavailable David Caputo MD Primary Care Provider DR DAVID CAPUTO Admitting Unavailable DR DAVID CAPUTO Attending Unavailable DR DAVID CAPUTO Consulting Unavailable DR DAVID CAPUTO Primary Care Unavailable BRADY, DR IRVING Atkins [...] CAPUTO, DR DAVID Meza Primary Care Unavailable SHAUN, SAIMA BHAGAT Consulting Unavailable Nefcy, Mar Consulting Unavailable ASHLY ., DENISE Consulting Unavailable PAGE, FER Diaz Consulting Unavailable CAPUTO, DR DAVID Meza Admitting Unavailable CAPUTO, DR DAVID Meza Attending Unavailable CAPUTO, DR DAVID Meza Consulting Unavailable CAPUTO, DR DAVID Meza Primary Care Unavailable CAPUTO, DR DAVID Meza Admitting Unavailable CAPUTO, DR DAVID Meza Attending Unavailable CAPUTO, DR DAVID Meza Consulting Unavailable CAPUTO, DR DAVID Meza Primary Care Unavailable David Caputo Unavailable Brday, Dr. Irving Gutiérrez Referring Unava ilable Brady, Dr. Irving Gutiérrez Attending Unava ilkinsey Caputo, Dr. David Rodriguez Primary Care Unav ailable Harshal, Dr. David Rodriguez Primary Care Unav ailable Brady, Dr. Irving Gutiérrez Referring Unava ilable Brady, Dr. Irving Gutiérrez Attending Unava ilable MD David Caputo Primary Care Provider MD Adriane Espitia Attending Provider [phone] Dr. Adriane Espitia Unavailable Unavailable Adriane Espitia Attending Unavailable David Caputo E Primary Care Unavailable Adriane Espitia Admitting Unavailable David Caputo Primary Care Unavailable Adriane Espitia Admitting Unavailable Adriane Espitia Attending Unavailable CAPUTO, DAVID E Primary Care [...] ZAHRA Referring Unavailable ABHYANKAR, ZAHRA Attending Unavailable CPAUTO, DAVID E Primary Care Unavailable ABHYANKAR, ZAHRA Referring Unavailable CAPUTO, DAVID E Primary Care Unavailable ABHYANKAR, ZAHRA Referring Unavailable CAPUTO, DAVID E Primary Care Unavailable ABHYANKAR, ZAHRA Referring Unavailable CAPUTO, DAVID E Primary Care Unavailable ABHYANKAR, ZAHRA Referring Unavailable CAPUTO, DAVID E Primary Care Unavailable ABHYANKAR, ZAHRA Referring Unavailable ROLA GORDON Attending Unavailable David Caputo MD E Primary Care Provider Allergies Allergy Classification Reported Allergen(s) Allergy Type Date of Onset Reaction(s) Facility (8 sources) Angiotensin Converting Enzyme (Ophelia) Inhibitors; Translations: [OPHELIA Inhibitors] Allergy to drug (finding) [facility] 250 DO Work Phone: (1 source) patient allergy list reviewed by nurse or physicia Propensity to adverse reactions 8 Comment:Done [employer] Other (1 source) Allergies Reconciled Propensity to adverse reactions 1 Unknown [employer] Other Medications Current Medications Medication Drug Class(es) [...] MOUTH TWICE A DAY NEEDED for 30 Mar, Active Start: 03-17-2018 End: 03-28-2023 ALPRAZolam (XANAX) [...] once daily Cholecalciferol Oral Tablet 250 MCG (11226 UT) 1 tablet Tablet Oral Give 1 tablet by mouth every day shift related to 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) 01/28/2023 7:00:00 take 1 capsule by mouth once arjun ly Vitamin D3 1.25 MG (93062 UT) Oral Capsule TAKE 1 CAPSULE Daily Quantity: 0 Refills: 0 Ordered: 16-Sep-2022 DO Active Creon Oral Capsule Delayed Release Particles 72267-56833 UNIT (2 sources) Start: 08-13-2023 take 96098-36432 [IU] by mouth at mealtime Creon Oral Capsule Delayed Release Particles 85789-69546 UNIT 2 capsule Capsule Delayed Release Particles Oral Give 2 capsule by mouth with meals related to GASTRO-ESOPHAGEAL REFLUX DISEASE WITHOUT ESOPHAGITIS (K21.9);[facility] 02/08/2023 12:00:00 Start: 01-23-2023 End: 02-08-2023 take 33800-05288 [IU] by mouth at mealtime Creon Oral Capsule Delayed Release Particles 78592-34822 UNIT 2 capsule Capsule Delayed Release Particles Oral Give 2 capsule by mouth with meals related to GASTRO-ESOPHAGEAL REFLUX DISEASE WITHOUT ESOPHAGITIS (K21.9);[facility] 01/23/2023 17:00:00 02/08/2023 8:05:00 Aborted [...] Aborted Start: 01-24-2023 take 1 capsule by [facility] once daily FLUOXETINE HCL 20 MG CAPSULE{100 EA} 1 capsule Capsule Oral GIVE 1 CAPSULE BY MOUTH ONCE DAILY (FORMULARY EQUIVALENT FOR TABLET) 01/24/2023 7:00:00 Start: 11-13-2022 take 1 capsule by [facility] every twenty-four hours FLUoxetine HCl 40 MG 1 capsule Orally Once a day for 30 days October, Active Start: 08-13-2022 take 1 capsule by [facility] once daily FLUoxetine HCl 20 MG 1 capsule Orally Once a day for 90 days Jul, Active Start: 08-13-2022 take 1 capsule by [facility] every twenty-four hours FLUoxetine HCl 20 MG 1 capsule Orally Once a day for 90 days Jul, Active Start: 03-04-2019 take 20 mg by mouth once daily Fluoxetine Active 20 MG PO Daily March 04, 2019 12:00am Start: 03-17-2018 take 1 capsule by [facility] twice daily FLUoxetine HCl (PROZAC) 40 mg [...] oral tablet (20 sources) Biguanide Start: 08-07-19 End: 12-06-19 take 1000 mg by mouth [...] WHIPPLE'S DISEASE (K90.81) 01/24/2023 7:00:00 peg 3350-sod sulf,biqa-asq-est 178.7-7.3-0.5 gram recon soln (1 source) Start: 07-17-2023 End: 07-18-2023 peg 3350-sod sulf,iznw-gfa-liq 178.7-7.3-0.5 gram recon soln Take 1 kit [...] 11, 2017 August 18, 2017 1:02am amylase 058384 unt / lipase 10487 unt / protease 00720 unt delayed release oral capsule (20 sources) Start: 03-04-2019 End: 11-28-2022 take 2 capsules by mouth three times daily at mealtime mbwebf-iucqgsxg-vr ylase (CREON 24) 24,000-76,000 -120,000 unit delayed [...] 12-27-19 20 JARDIANCE 25 mg tablet JARDIANCE Not-Alessandro alberto folic acid 1 mg oral tablet (20 [...] disease (20 sources) Atherosclerotic heart disease of [place] coronary artery without angina pectoris; Translations: [Ischemic [...] of anticoagulants] Episodic Other aftercare (1 source) 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; Translations: [PRISON CURRNT USE ANTICOAGULANTS] Onset: 3 Episodic Other aftercare (1 source) Other half-way (current) drug therapy; Translations: [OTH PRISON CURRENT DRUG THERAPY] Onset: 3 Episodic Other [...] Unclassified (1 source) 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 LABCLIA [id number] [place] [address] Basophils/100 WBC (Bld) 0.2 % Normal [facility] Comment on above: Order Comment: Speci men Type: BLOOD SPECIMENOrdering Facility: [facility] Address: [address] [place] [address] Performed By: #### 5 7021-8 ####[facility] LABCLIA [id number] [place] [address] Differential cell count method Nom (Bld) Auto Normal [facility] Comment on above: Order Comment: Speci men Type: BLOOD SPECIMENOrdering Facility: [facility] Address: [address] [address] Performed By: #### 5 7021-8 ####[facility] LABCLIA [id number] [place] [address] Eosinophils (Bld) [#/Vol] 0.18 10*3/uL Normal <0.46 [facility] Comment on above: Order Comment: Speci men Type: BLOOD SPECIMENOrdering Facility: [facility] Address: [address] [address] Performed By: #### 5 7021-8 ####[facility] LABCLIA [id number] [place] [address] Eosinophils/100 WBC (Bld) 2.9 % Normal [facility] Comment on above: Order Comment: Speci men Type: BLOOD SPECIMENOrdering Facility: [facility] Address: [address] [place] [address] Performed By: #### 5 7021-8 ####[facility] LABCLIA [id number] [place] [address] Erythrocyte distribution width (RBC) [Ratio] 13.5 % Normal 11.5-15.0 [facility] Comment on above: Order Comment: Speci men Type: BLOOD SPECIMENOrdering Facility: [facility] Address: [address] [place] [address] Performed By: #### 5 7021-8 ####[facility] LABCLIA [id number] [place] [address] Hematocrit (Bld) [Volume fraction] 32.3 % Low 39.0-51.0 [facility] Comment on above: Order Comment: Speci men Type: BLOOD SPECIMENOrdering Facility: [facility] Address: [address] [place] [address] Performed By: #### 5 7021-8 ####[facility] LABCLIA [id number] [place] [address] Hemoglobin (Bld) [Mass/Vol] 10.3 g/dL Low 13.0-17.0 [facility] Comment on above: Order Comment: Speci men Type: BLOOD SPECIMENOrdering Facility: [facility] Address: [address] [place] [address] Performed By: #### 5 7021-8 ####[facility] LABCLIA [id number] [place] [address] Immature granulocytes (Bld) [#/Vol] 10*3/uL Normal <0.10 [facility] Comment on above: Order Comment: Speci men Type: BLOOD SPECIMENOrdering Facility: [facility] Address: [address] [place] [address] Performed By: #### 5 7021-8 ####[facility] LABCLIA [id number] [place] [address] Immature granulocytes/100 WBC (Bld) 0.3 % Normal [facility] Comment on above: Order Comment: Speci men Type: BLOOD SPECIMENOrdering Facility: [facility] Address: [address] [place] [address] Performed By: #### 5 7021-8 ####[facility] LABCLIA [id number] [place] [address] Lymphocytes (Bld) [#/Vol] 1.81 10*3/uL Normal 1.00-4.00 [facility] Comment on above: Order Comment: Speci men Type: BLOOD SPECIMENOrdering Facility: [facility] Address: [address] [place] [address] Performed By: #### 5 7021-8 ####[facility] LABIA [id number] [place] [address] Lymphocytes/100 WBC (Bld) 28.8 % Normal [facility] Comment on above: Order Comment: Speci men Type: BLOOD SPECIMENOrdering Facility: [facility] Address: [address] [place] [address] Performed By: #### 5 7021-8 ####[facility] LABCLIA [id number] [place] [address] MCH (RBC) [Entitic mass] 31.6 pg Normal 26.0-34.0 [facility] Comment on above: Order Comment: Speci men Type: BLOOD SPECIMENOrdering Facility: [facility] Address: [address] [place] [address] Performed By: #### 5 7021-8 ####[facility] LABCLIA [id number] [place] [address] MCHC (RBC) [Mass/Vol] 31.9 g/dL Normal 30.5-36.0 [facility] Comment on above: Order Comment: Speci men Type: BLOOD SPECIMENOrdering Facility: [facility] Address: [address] [place] [address] Performed By: #### 5 7021-8 ####[facility] LABCLIA [id number] [place] [address] MCV (RBC) [Entitic vol] 99.1 fL Normal 80.0-100.0 [facility] Comment on above: Order Comment: Speci men Type: BLOOD SPECIMENOrdering Facility: [facility] Address: [address] [place] [address] Performed By: #### 5 7021-8 ####[facility] LABIA [id number] [place] [address] Monocytes (Bld) [#/Vol] 0.66 10*3/uL Normal <0.87 [facility] Comment on above: Order Comment: Speci men Type: BLOOD SPECIMENOrdering Facility: [facility] Address: [address] [place] [address] Performed By: #### 5 7021-8 ####[facility] LABIA [id number] [place] [address] Monocytes/100 WBC (Bld) 10.5 % Normal [facility] Comment on above: Order Comment: Speci men Type: BLOOD SPECIMENOrdering Facility: [facility] Address: [address] [place] [address] Performed By: #### 5 7021-8 ####[facility] LABIA [id number] [place] [address] Neutrophils (Bld) [#/Vol] 3.60 10*3/uL Normal 1.45-7.50 [facility] Comment on above: Order Comment: Speci men Type: BLOOD SPECIMENOrdering Facility: [facility] Address: [address] [address] Performed By: #### 5 7021-8 ####[facility] LABCLIA [id number] [place] [address] Neutrophils/100 WBC (Bld) 57.3 % Normal [facility] Comment on above: Order Comment: Speci men Type: BLOOD SPECIMENOrdering Facility: [facility] Address: [address] [place] [address] Performed By: #### 5 7021-8 ####[facility] LABCLIA [id number] [place] [address] Nucleated RBC (Bld) [#/Vol] 10*3/uL Normal <0.01 [facility] Comment on above: Order Comment: Speci men Type: BLOOD SPECIMENOrdering Facility: [facility] Address: [address] [place] [address] Performed By: #### 5 7021-8 ####[facility] LABCLIA [id number] [place] [address] Nucleated RBC/100 WBC (Bld) [Ratio] 0.0 /100 WBC Normal [facility] Comment on above: Order Comment: Speci men Type: BLOOD SPECIMENOrdering Facility: [facility] Address: [address] [place] [address] Performed By: #### 5 7021-8 ####[facility] LABCLIA [id number] [place] [address] Platelet mean volume (Bld) [Entitic vol] 9.3 fL Normal 9.0-12.7 [facility] Comment on above: Order Comment: Speci men Type: BLOOD SPECIMENOrdering Facility: [facility] Address: [address] [place] [address] Performed By: #### 5 7021-8 ####[facility] LABCLIA [id number] [place] [address] Platelets (Bld) [#/Vol] 298 10*3/uL Normal 150-400 [facility] Comment on above: Order Comment: Speci men Type: BLOOD SPECIMENOrdering Facility: [facility] Address: [address] [place] [address] Performed By: #### 5 7021-8 ####[facility] LABCLIA [id number] [place] [address] RBC (Bld) [#/Vol] 3.26 10*6/uL Low 4.20-6.00 [facility] Comment on above: Order Comment: Speci men Type: BLOOD SPECIMENOrdering Facility: [facility] Address: [address] [place] [address] Performed By: #### 5 7021-8 ####[facility] LABIA [id number] [place] [address] WBC (Bld) [#/Vol] 6.28 10*3/uL Normal 3.70-11.00 [facility] Comment on above: Order Comment: Speci men Type: BLOOD SPECIMENOrdering Facility: [facility] Address: [address] [place] [address] Performed By: #### 5 7021-8 ####[facility] LABIA [id number] [place] [address] CNNURSEon 03-11-2023 CNNURSE Normal [facility] CNOVSPon 03-11-2023 CNOVSP Normal [facility] CNPNon 03-11-2023 CNPN Normal [facility] Comprehensive metabolic 2000 panelon 03-11-2023 Albumin [Mass/Vol] 3.5 g/dL Low 3.9-4.9 [facility] Comment on above: Order Comment: Speci men Type: BLOOD SPECIMENOrdering Facility: [facility] Address: [address] [place] [address] Performed By: #### 2 4323-8 ####[facility] LABCLIA [id number] [place] [address] ALP [Catalytic activity/Vol] 107 U/L Normal 38-113 [facility] Comment on above: Order Comment: Speci men Type: BLOOD SPECIMENOrdering Facility: [facility] Address: [address] [place] [address] Performed By: #### 2 4323-8 ####[facility] LABCLIA [id number] [place] [address] ALT [Catalytic activity/Vol] 17 U/L Normal 10-54 [facility] Comment on above: Order Comment: Speci men Type: BLOOD SPECIMENOrdering Facility: [facility] Address: [address] [place] [address] Performed By: #### 2 4323-8 ####[facility] LABCLIA [id number] [place] [address] Anion gap [Moles/Vol] 11 mmol/L Normal 9-18 [facility] Comment on above: Order Comment: Speci men Type: BLOOD SPECIMENOrdering Facility: [facility] Address: [address] [address] Performed By: #### 2 4323-8 ####[facility] LABCLIA [id number] [place] [address] AST [Catalytic activity/Vol] 18 U/L Normal 14-40 [facility] Comment on above: Order Comment: Speci men Type: BLOOD SPECIMENOrdering Facility: [facility] Address: [address] [address] Performed By: #### 2 4323-8 ####[facility] LABCLIA [id number] [place] [address] Bilirubin [Mass/Vol] 0.3 mg/dL Normal 0.2-1.3 [facility] Comment on above: Order Comment: Speci men Type: BLOOD SPECIMENOrdering Facility: [facility] Address: [address] [place] [address] Performed By: #### 2 4323-8 ####[facility] LABCLIA [id number] [place] [address] Calcium [Mass/Vol] 9.3 mg/dL Normal 8.5-10.2 [facility] Comment on above: Order Comment: Speci men Type: BLOOD SPECIMENOrdering Facility: [facility] Address: [address] [place] [address] Performed By: #### 2 4323-8 ####[facility] LABCLIA [id number] [place] [address] Chloride [Moles/Vol] 106 mmol/L High 97-105 [facility] Comment on above: Order Comment: Speci men Type: BLOOD SPECIMENOrdering Facility: [facility] Address: [address] [place] [address] Performed By: #### 2 4323-8 ####[facility] LABCLIA [id number] [place] [address] CO2 [Moles/Vol] 22 mmol/L Normal 22-30 [facility] Comment on above: Order Comment: Speci men Type: BLOOD SPECIMENOrdering Facility: [facility] Address: [address] [place] [address] Performed By: #### 2 4323-8 ####[facility] LABCLIA [id number] [place] [address] Creatinine [Mass/Vol] 0.77 mg/dL Normal 0.73-1.22 [facility] Comment on above: Order Comment: Speci men Type: BLOOD SPECIMENOrdering Facility: [facility] Address: [address] [place] [address] Performed By: #### 2 4323-8 ####[facility] LABCLIA [id number] [place] [address] Creatinine and Glomerular filtration rate.predicted panel (S/P/Bld) 99 mL/min/1.73m??? Normal >=60 [facility] Comment on above: Order Comment: Frank real Type: BLOOD SPECIMENOrdering Facility: [facility] Address: [address] [phone] Result Comment: Megan mated Glomerular Filtration Rate [...] actual GFR. Performed By: #### 2 4323-8 ####[facility] LABCLIA [id number] [place] [address] Glucose [Mass/Vol] 117 mg/dL High 74-99 [facility] Comment on above: Order Comment: Frank real Type: BLOOD SPECIMENOrdering Facility: [facility] Address: [address] [address] Result Comment: The [place] [employer] (ADA) provides guidance for cutoff [...] Standards of Medical Care in Diabetes 2016, [place] [employer]. Diabetes Care. 2016.39(Suppl 1). Performed By: #### 2 4323-8 ####[facility] LABCLIA [id number] [place] [address] Potassium [Moles/Vol] 4.2 mmol/L Normal 3.7-5.1 [facility] Comment on above: Order Comment: Frank real Type: BLOOD SPECIMENOrdering Facility: [facility] Address: [address] Performed By: #### 2 4323-8 ####[facility] LABCLIA [id number] [place] [address] Protein [Mass/Vol] 6.8 g/dL Normal 6.3-8.0 [facility] Comment on above: Order Comment: Speci men Type: BLOOD SPECIMENOrdering Facility: [facility] Address: [address] [place] [address] Performed By: #### 2 4323-8 ####[facility] LABCLIA [id number] [place] [address] Sodium [Moles/Vol] 139 mmol/L Normal 136-144 [facility] Comment on above: Order Comment: Speci men Type: BLOOD SPECIMENOrdering Facility: [facility] Address: [address] [place] [address] Performed By: #### 2 4323-8 ####[facility] LABCLIA [id number] [place] [address] Urea nitrogen [Mass/Vol] 22 mg/dL Normal 9-24 [facility] Comment on above: Order Comment: Speci men Type: BLOOD SPECIMENOrdering Facility: [facility] Address: [address] [place] [address] Performed By: #### 2 4323-8 ####[facility] LABCLIA [id number] [place] [address] [facility] Ferritin [Mass/Vol] 302.0 ng/mL Normal 30.3-565.7 [facility] Comment on above: Order Comment: Speci men Type: BLOOD SPECIMENOrdering Facility: [facility] Address: [address] [place] [address] Performed By: #### 5 0190-8, 2132-9, 2276-4 ####[facility] LABCLIA [id number] [place] [address] [place] Iron and Iron binding capaci ty panelon 03-11-2023 Iron [Mass/Vol] 37 ug/dL Low 41-186 [facility] Comment on above: Order Comment: Speci men Type: BLOOD SPECIMENOrdering Facility: [facility] Address: [address] [place] [address] Performed By: #### 5 0190-8, 2132-02, 2275-09 ####[facility] LABIA [id number] [address] [place] Iron binding capacity [Mass/Vol] Normal [facility] Comment on above: Order Comment: Speci men Type: BLOOD SPECIMENOrdering Facility: [facility] Address: [address] [place] [address] Result Comment: Unab le to calculate due to hemolysis. Performed By: #### 5 0190-8, 2132-02, 2275-09 ####[facility] LABIA [id number] [address] [place] Iron/TIBC [Molar ratio] Normal [facility] Comment on above: Order Comment: Speci men Type: BLOOD SPECIMENOrdering Facility: [facility] Address: [address] [place] [address] Result Comment: Unab le to calculate due to hemolysis. Performed By: #### 5 0190-8, 2132-02, 2275-09 ####[facility] LABIA [id number] [place] [address] [place] NM PET/CT SKULL-THIGH INITon 03-11-2023 NM PET/CT SKULL-THIGH INIT Normal [facility] Vit B12 SerPl-ncon 023 Cobalamin (Vitamin B12) [Mass/Vol] 758 pg/mL Normal 232-1245 [facility] Comment on above: Order Comment: Speci men Type: BLOOD SPECIMENOrdering Facility: [facility] Address: [address] [place], [place] [address] Performed By: #### 5 0190-8, 2132-9, 2276-4 ####[facility] LABCLIA [id number] [address] [id number] [address] [place] CNPNon 03-05-2023 CNPN Normal [facility] CBC W Auto Differential pane l (Bld)on 02-19-2023 Basophils (Bld) [#/Vol] 10*3/uL Normal <0.11 [facility] Comment on above: Order Comment: Speci men Type: BLOOD SPECIMENOrdering Facility: [facility] Address: [address] [address] Performed By: #### 5 7021-8 ####[facility] LABIA [id number] [place] [address] Basophils/100 WBC (Bld) 0.4 % Normal [facility] Comment on above: Order Comment: Speci men Type: BLOOD SPECIMENOrdering Facility: [facility] Address: [address] [place] [address] Performed By: #### 5 7021-8 ####[facility] LABCLIA [id number] [place] [address] Differential cell count method Nom (Bld) Auto Normal [facility] Comment on above: Order Comment: Speci men Type: BLOOD SPECIMENOrdering Facility: [facility] Address: [address] [address] Performed By: #### 5 7021-8 ####[facility] LABCLIA [id number] [place] [address] Eosinophils (Bld) [#/Vol] 0.15 10*3/uL Normal <0.46 [facility] Comment on above: Order Comment: Speci men Type: BLOOD SPECIMENOrdering Facility: [facility] Address: [address] [address] Performed By: #### 5 7021-8 ####[facility] LABCLIA [id number] [place] [address] Eosinophils/100 WBC (Bld) 3.2 % Normal [facility] Comment on above: Order Comment: Speci men Type: BLOOD SPECIMENOrdering Facility: [facility] Address: [address] [place] [address] Performed By: #### 5 7021-8 ####[facility] LABCLIA [id number] [place] [address] Erythrocyte distribution width (RBC) [Ratio] 13.3 % Normal 11.5-15.0 [facility] Comment on above: Order Comment: Speci men Type: BLOOD SPECIMENOrdering Facility: [facility] Address: [address] [place] [address] Performed By: #### 5 7021-8 ####[facility] LABCLIA [id number] [place] [address] Hematocrit (Bld) [Volume fraction] 30.7 % Low 39.0-51.0 [facility] Comment on above: Order Comment: Speci men Type: BLOOD SPECIMENOrdering Facility: [facility] Address: [address] [place] [address] Performed By: #### 5 7021-8 ####[facility] LABCLIA [id number] [place] [address] Hemoglobin (Bld) [Mass/Vol] 9.8 g/dL Low 13.0-17.0 [facility] Comment on above: Order Comment: Speci men Type: BLOOD SPECIMENOrdering Facility: [facility] Address: [address] [place] [address] Performed By: #### 5 7021-8 ####[facility] LABCLIA [id number] [place] [address] Immature granulocytes (Bld) [#/Vol] 10*3/uL Normal <0.10 [facility] Comment on above: Order Comment: Speci men Type: BLOOD SPECIMENOrdering Facility: [facility] Address: [address] [place], [place] [address] Performed By: #### 5 7021-8 ####[facility] LABCLIA [id number] [place] [address] Immature granulocytes/100 WBC (Bld) 0.2 % Normal [facility] Comment on above: Order Comment: Speci men Type: BLOOD SPECIMENOrdering Facility: [facility] Address: [address] [place] [address] Performed By: #### 5 7021-8 ####[facility] LABCLIA [id number] [place] [address] Lymphocytes (Bld) [#/Vol] 1.19 10*3/uL Normal 1.00-4.00 [facility] Comment on above: Order Comment: Speci men Type: BLOOD SPECIMENOrdering Facility: [facility] Address: [address] [place] [address] Performed By: #### 5 7021-8 ####[facility] LABCLIA [id number] [place] [address] Lymphocytes/100 WBC (Bld) 25.4 % Normal [facility] Comment on above: Order Comment: Speci men Type: BLOOD SPECIMENOrdering Facility: [facility] Address: [address] [place] [address] Performed By: #### 5 7021-8 ####[facility] LABCLIA [id number] [place] [address] MCH (RBC) [Entitic mass] 31.6 pg Normal 26.0-34.0 [facility] Comment on above: Order Comment: Speci men Type: BLOOD SPECIMENOrdering Facility: [facility] Address: [address] [place] [address] Performed By: #### 5 7021-8 ####[facility] LABCLIA [id number] [place] [address] MCHC (RBC) [Mass/Vol] 31.9 g/dL Normal 30.5-36.0 [facility] Comment on above: Order Comment: Speci men Type: BLOOD SPECIMENOrdering Facility: [facility] Address: [address] [place] [address] Performed By: #### 5 7021-8 ####[facility] LABCLIA [id number] [place] [address] MCV (RBC) [Entitic vol] 99.0 fL Normal 80.0-100.0 [facility] Comment on above: Order Comment: Speci men Type: BLOOD SPECIMENOrdering Facility: [facility] Address: [address] [place] [address] Performed By: #### 5 7021-8 ####[facility] LABCLIA [id number] [place] [address] Monocytes (Bld) [#/Vol] 0.37 10*3/uL Normal <0.87 [facility] Comment on above: Order Comment: Speci men Type: BLOOD SPECIMENOrdering Facility: [facility] Address: [address] [place] [address] Performed By: #### 5 7021-8 ####[facility] LABCLIA [id number] [place] [address] Monocytes/100 WBC (Bld) 7.9 % Normal [facility] Comment on above: Order Comment: Speci men Type: BLOOD SPECIMENOrdering Facility: [facility] Address: [address] [place] [address] Performed By: #### 5 7021-8 ####[facility] LABCLIA [id number] [place] [address] Neutrophils (Bld) [#/Vol] 2.94 10*3/uL Normal 1.45-7.50 [facility] Comment on above: Order Comment: Speci men Type: BLOOD SPECIMENOrdering Facility: [facility] Address: [address] [place] [address] Performed By: #### 5 7021-8 ####[facility] LABCLIA [id number] [place] [address] Neutrophils/100 WBC (Bld) 62.9 % Normal [facility] Comment on above: Order Comment: Speci men Type: BLOOD SPECIMENOrdering Facility: [facility] Address: [address] [place] [address] Performed By: #### 5 7021-8 ####[facility] LABCLIA [id number] [place] [address] Nucleated RBC (Bld) [#/Vol] 10*3/uL Normal <0.01 [facility] Comment on above: Order Comment: Speci men Type: BLOOD SPECIMENOrdering Facility: [facility] Address: [address] [place] [address] Performed By: #### 5 7021-8 ####[facility] LABCLIA [id number] [place] [address] Nucleated RBC/100 WBC (Bld) [Ratio] 0.0 /100 WBC Normal [facility] Comment on above: Order Comment: Speci men Type: BLOOD SPECIMENOrdering Facility: [facility] Address: [address] [place] [address] Performed By: #### 5 7021-8 ####[facility] LABCLIA [id number] [place] [address] Platelet mean volume (Bld) [Entitic vol] 8.9 fL Low 9.0-12.7 [facility] Comment on above: Order Comment: Speci men Type: BLOOD SPECIMENOrdering Facility: [facility] Address: [address] [place] [address] Performed By: #### 5 7021-8 ####[facility] LABCLIA [id number] [place] [address] Platelets (Bld) [#/Vol] 266 10*3/uL Normal 150-400 [facility] Comment on above: Order Comment: Speci men Type: BLOOD SPECIMENOrdering Facility: [facility] Address: [address] [place] [address] Performed By: #### 5 7021-8 ####[facility] LABIA [id number] [place] [address] RBC (Bld) [#/Vol] 3.10 10*6/uL Low 4.20-6.00 [facility] Comment on above: Order Comment: Speci men Type: BLOOD SPECIMENOrdering Facility: [facility] Address: [address] [place] [address] Performed By: #### 5 7021-8 ####[facility] [id number] [place] [address] WBC (Bld) [#/Vol] 4.68 10*3/uL Normal 3.70-11.00 [facility] Comment on above: Order Comment: Speci men Type: BLOOD SPECIMENOrdering Facility: [facility] Address: [address] [place] [address] Performed By: #### 5 7021-8 ####[facility] LABIA [id number] [place] [address] CNNURSEon 02-19-2023 CNNURSE Normal [facility] CNOVSPon 02-19-2023 CNOVSP Normal [facility] Comprehensive metabolic 2000 panelon 02-19-2023 Albumin [Mass/Vol] 3.8 g/dL Low 3.9-4.9 [facility] Comment on above: Order Comment: Speci men Type: BLOOD SPECIMENOrdering Facility: [facility] Address: [address] [place] [address] Performed By: #### 2 4323-8 ####[facility] LABIA [id number] [place] [address] ALP [Catalytic activity/Vol] 112 U/L Normal 38-113 [facility] Comment on above: Order Comment: Speci men Type: BLOOD SPECIMENOrdering Facility: [facility] Address: [address] [address] Performed By: #### 2 4323-8 ####[facility] LABCLIA [id number] [place] [address] ALT [Catalytic activity/Vol] 17 U/L Normal 10-54 [facility] Comment on above: Order Comment: Speci men Type: BLOOD SPECIMENOrdering Facility: [facility] Address: [address] [address] Performed By: #### 2 4323-8 ####[facility] LABCLIA [id number] [place] [address] Anion gap [Moles/Vol] 11 mmol/L Normal 9-18 [facility] Comment on above: Order Comment: Speci men Type: BLOOD SPECIMENOrdering Facility: [facility] Address: [address] [address] Performed By: #### 2 4323-8 ####[facility] LABCLIA [id number] [place] [address] AST [Catalytic activity/Vol] 16 U/L Normal 14-40 [facility] Comment on above: Order Comment: Speci men Type: BLOOD SPECIMENOrdering Facility: [facility] Address: [address] [address] Performed By: #### 2 4323-8 ####[facility] LABCLIA [id number] [place] [address] Bilirubin [Mass/Vol] 0.2 mg/dL Normal 0.2-1.3 [facility] Comment on above: Order Comment: Speci men Type: BLOOD SPECIMENOrdering Facility: [facility] Address: [address] [place] [address] Performed By: #### 2 4323-8 ####[facility] LABCLIA [id number] [place] [address] Calcium [Mass/Vol] 9.6 mg/dL Normal 8.5-10.2 [facility] Comment on above: Order Comment: Speci men Type: BLOOD SPECIMENOrdering Facility: [facility] Address: [address] [address] Performed By: #### 2 4323-8 ####[facility] LABCLIA [id number] [place] [address] Chloride [Moles/Vol] 106 mmol/L High 97-105 [facility] Comment on above: Order Comment: Speci men Type: BLOOD SPECIMENOrdering Facility: [facility] Address: [address] [place] [address] Performed By: #### 2 4323-8 ####[facility] LABCLIA [id number] [place] [address] CO2 [Moles/Vol] 20 mmol/L Low 22-30 [facility] Comment on above: Order Comment: Speci men Type: BLOOD SPECIMENOrdering Facility: [facility] Address: [address] [place] [address] Performed By: #### 2 4323-8 ####[facility] LABCLIA [id number] [place] [address] Creatinine [Mass/Vol] 0.72 mg/dL Low 0.73-1.22 [facility] Comment on above: Order Comment: Speci men Type: BLOOD SPECIMENOrdering Facility: [facility] Address: [address] [place] [address] Performed By: #### 2 4323-8 ####[facility] LABIA [id number] [place] [address] Creatinine and Glomerular filtration rate.predicted panel (S/P/Bld) 101 mL/min/1.73m??? Normal >=60 [facility] Comment on above: Order Comment: Speci men Type: BLOOD SPECIMENOrdering Facility: [facility] Address: [address] [place] [address] Result Comment: Megan mated Glomerular Filtration Rate [...] actual GFR. Performed By: #### 2 4323-8 ####[facility] LABCLIA [id number] [place] [address] Glucose [Mass/Vol] 165 mg/dL High 74-99 [facility] Comment on above: Order Comment: Speci men Type: BLOOD SPECIMENOrdering Facility: [facility] Address: [address] [place] [address] Result Comment: The [place] [employer] (ADA) provides guidance for cutoff [...] Standards of Medical Care in Diabetes 2016, [place] [employer]. Diabetes Care. 2016.39(Suppl 1). Performed By: #### 2 4323-8 ####[facility] LABCLIA [id number] [place] [address] Potassium [Moles/Vol] 4.2 mmol/L Normal 3.7-5.1 [facility] Comment on above: Order Comment: Speci men Type: BLOOD SPECIMENOrdering Facility: [facility] Address: [address] [place], [place] [address] Performed By: #### 2 4323-8 ####[facility] LABCLIA [id number] [place] [address] Protein [Mass/Vol] 7.0 g/dL Normal 6.3-8.0 [facility] Comment on above: Order Comment: Speci men Type: BLOOD SPECIMENOrdering Facility: [facility] Address: [address] [address] Performed By: #### 2 4323-8 ####[facility] LABCLIA [id number] [place] [address] Sodium [Moles/Vol] 137 mmol/L Normal 136-144 [facility] Comment on above: Order Comment: Speci men Type: BLOOD SPECIMENOrdering Facility: [facility] Address: [address] [place] [address] Performed By: #### 2 4323-8 ####[facility] LABCLIA [id number] [place] [address] Urea nitrogen [Mass/Vol] 22 mg/dL Normal 9-24 [facility] Comment on above: Order Comment: Speci men Type: BLOOD SPECIMENOrdering Facility: [facility] Address: [address] [address] Performed By: #### 2 4323-8 ####[facility] LABCLIA [id number] [place] [address] Ferritin SerPl-mCncon 2022 Ferritin [Mass/Vol] 247.0 ng/mL Normal 30.3-565.7 [facility] Comment on above: Order Comment: Speci men Type: BLOOD SPECIMENOrdering Facility: [facility] Address: [address] [address] Performed By: #### 5 0190-8, 2132-9, 2276-4, 2284-8 ####[facility] LABCLIA [id number] [address] [id number] [place] Folate SerPl-mCncon 02-20-20 23 Folate [Mass/Vol] ng/mL Normal >4.7 [facility] Comment on above: Order Comment: Speci men Type: BLOOD SPECIMENOrdering Facility: [facility] Address: [address] [place] [address] Result Comment: A re sult of > 20 ng/mL is not necessarily indicative of a pathologic or treatable condition: it reflects a limitation of the test methodology.Assay reference range: 4.8 to 24.2 ng/mL. Suitable for detection of folate deficiency.Reference:Folate III (Folate III) [package insert V 1.0 Ecuadorean]. [facility], [place], [place]: April 2015. Performed By: #### 5 0190-8, 2131-9, 2275-4, 8 ####[facility] LABIA [id number] [place] [address] [place] Iron and Iron binding capaci ty panelon 02-19-2023 Iron [Mass/Vol] 30 ug/dL Low 41-186 [facility] Comment on above: Order Comment: Speci men Type: BLOOD SPECIMENOrdering Facility: [facility] Address: [address] [place] [address] Performed By: #### 5 0190-8, 9, 4, 8 ####[facility] LABIA [id number] [place] [address] [place] Iron binding capacity [Mass/Vol] 208 ug/dL Low 232-386 [facility] Comment on above: Order Comment: Speci men Type: BLOOD SPECIMENOrdering Facility: [facility] Address: [address] [place] [address] Performed By: #### 5 0190-8, 9, 2275-4, 8 ####[facility] LABIA [id number] [address] [place] Iron/TIBC [Molar ratio] 14.4 % Low 15.0-57.0 [facility] Comment on above: Order Comment: Speci men Type: BLOOD SPECIMENOrdering Facility: [facility] Address: [address] [place] [address] Performed By: #### 5 0190-8, 2131-9, 2275-4, 8 ####[facility] LABCLIA [id number] [address] [id number] [place] Vit B12 SerPl-mCncon 023 Cobalamin (Vitamin B12) [Mass/Vol] 636 pg/mL Normal 232-1245 [facility] Comment on above: Order Comment: Speci men Type: BLOOD SPECIMENOrdering Facility: [facility] Address: [address] [facility] [address] Performed By: #### 5 0190-8, 9, 2275-09, 2284-01 ####[facility] LABCLIA [id number] [place] [address] [place] CNPNon 02-17-2023 CNPN Normal [facility] Albumin Levelon 02-10-2023 Albumin [Mass/Vol] 3.4 g/dL Low 3.5-5.7 [facility] Comment on above: Order Comment: Diagn osis: E11.9, I10, E46, D64.9 Comment: [id number], DECLAN, RM112, , 02/06/23 Result Comment: PERF ORMED BY: [place] [address] PATHOLOGIST [employer] DIRECTOR ESTIVEN GENTILE M.D. Performed By: #### A LB, BMP, CBC #### [address] Albumin [Mass/volume] in Ser um or Plasma by Bromocresol green (BCG) dye binding methoOrdered By: Adriane Espitia on 02-10-2023 Albumin BCG dye [Mass/Vol] 3.4 g/dL 3.5-5.7 [facility] Basic Metabolic Panelon 01-27 Anion gap [Moles/Vol] 11.5 mmol/L Normal 6.0-15.0 [facility] Comment on above: Order Comment: Diagn osis: E11.9, I10, E46, D64.9 Comment: [id number], OGONTZ, RM112, HM, 02/06/23 Performed By: #### A LB, BMP, CBC #### [facility] [address] [id number] [facility] Calcium [Mass/Vol] 8.8 mg/dL Normal 8.6-10.3 [facility] Comment on above: Order Comment: Diagn osis: E11.9, I10, E46, D64.9 Comment: [id number], OGONTZ, RM112, HM, 02/06/23 Performed By: #### A LB, BMP, CBC #### [facility] [address] [id number] [facility] Chloride [Moles/Vol] 103 mmol/L Normal 98-107 [facility] Comment on above: Order Comment: Diagn osis: E11.9, I10, E46, D64.9 Comment: [id number], OGONTZ, RM112, HM, 02/06/23 Performed By: #### A LB, BMP, CBC #### [facility] [address] [id number] [facility] CO2 [Moles/Vol] 25.2 mmol/L Normal 21.0-31.0 [facility] Comment on above: Order Comment: Diagn osis: E11.9, I10, E46, D64.9 Comment: [id number], OGONTZ, RM112, HM, 02/06/23 Performed By: #### A LB, BMP, CBC #### [facility] [address] [phone] [place] Creatinine [Mass/Vol] 0.65 mg/dL Low 0.70-1.30 [facility] Comment on above: Order Comment: Diagn osis: E11.9, I10, E46, D64.9 Comment: [id number], OGONTZ, RM112, HM, 02/06/23 Performed By: #### A LB, BMP, CBC #### [facility] [address] [phone] [place] GFR/1.73 sq M.predicted MDRD (S/P/Bld) [Vol rate/Area] mL/min/{1.73_m2} Normal [facility] Comment on above: Order Comment: Diagn osis: E11.9, I10, E46, D64.9 Comment: [id number], DECLAN, RM112, , 02/06/23 Performed By: #### A VIPIN HIGGINBOTHAM, CBC #### [facility] [address] [phone] [facility] Glucose [Mass/Vol] 102 mg/dL High 70-100 [facility] Comment on above: Order Comment: Diagn osis: E11.9, I10, E46, D64.9 Comment: [id number], DECLAN, RMRobinson, , 02/06/23 Result Comment: [facility] Glucose Reference Range is dependent on time and content of last meal. Glucose of more than 200 mg/dL in a nonstressed, ambulatory subject supports the diagnosis of Diabetes Mellitus. ADA recommended reference range Performed By: #### A VIPIN HIGGINBOTHAM, CBC #### [facility] [address] [place] [address] [place] Potassium [Moles/Vol] 4.7 mmol/L Normal 3.5-5.1 [facility] Comment on above: Order Comment: Diagn osis: E11.9, I10, E46, D64.9 Comment: [id number], DECLAN, RM112, , 02/06/23 Performed By: #### A VIPIN HIGGINBOTHAM, CBC #### [facility] [address] [place] [address] [place] Sodium [Moles/Vol] 135 mmol/L Low 136-145 [facility] Comment on above: Order Comment: Diagn osis: E11.9, I10, E46, D64.9 Comment: [id number], DECLAN, RM112, , 02/06/23 Performed By: #### A VIPIN HIGGINBOTHAM, CBC #### [facility] [address] [place] [address] [place] Urea nitrogen [Mass/Vol] 19 mg/dL Normal 7-25 [facility] Comment on above: Order Comment: Diagn osis: E11.9, I10, E46, D64.9 Comment: [id number], DECLAN, RM112, HM, 02/06/23 Performed By: #### A LB, BMP, CBC #### [facility] [address] Basophils Auto (Bld) [#/Vol] Ordered By: Adriane Espitia on 02-10-2023 Basophils (Bld) [#/Vol] 0.0 10*3/uL 0.0-0.2 [facility] Basophils/100 WBC Auto (Bld) Ordered By: Adriane Espitia on 02-10-2023 Basophils/100 WBC (Bld) 0.4 % . [facility] Calcium [Mass/volume] in Ser um or PlasmaOrdered By: Adriane Espitia on 02-10-2023 Calcium [Mass/Vol] 8.8 mg/dL 8.6-10.3 [facility] Carbon dioxide, total [Moles /volume] in Serum or PlasmaOrdered By: Adriane Espitia on 02-10-2023 CO2 [Moles/Vol] 25.2 mmol/L 21.0-31.0 [facility] Chloride [Moles/volume] in S brandi or PlasmaOrdered By: Adriane Espitia on 02-10-2023 Chloride [Moles/Vol] 103 mmol/L 98-107 [facility] Complete Blood Count Auto Di ffon 02-10-2023 Basophils (Bld) [#/Vol] 0.0 10*3/uL Normal 0.0-0.2 [facility] Comment on above: Order Comment: Diagn osis: E11.9, I10, E46, D64.9 Comment: [id number], DECLAN, RM112, HM, 02/06/23 Result Comment: PERF ORMED BY: [place] [address] PATHOLOGIST [employer] DIRECTOR ESTIVEN GENTILE M.D. Performed By: #### A LB, BMP, CBC #### [facility] [address] Basophils/100 WBC (Bld) 0.4 % Normal . [facility] Comment on above: Order Comment: Diagn osis: E11.9, I10, E46, D64.9 Comment: [id number], OGONTZ, RM112, HM, 02/06/23 Performed By: #### A LB, BMP, CBC #### [address] Eosinophils (Bld) [#/Vol] 0.1 10*3/uL Normal 0.0-0.45 [facility] Comment on above: Order Comment: Diagn osis: E11.9, I10, E46, D64.9 Comment: [id number], OGONTZ, RM112, HM, 02/06/23 Performed By: #### A LB, BMP, CBC #### [address] Eosinophils/100 WBC (Bld) 3.1 % Normal . [facility] Comment on above: Order Comment: Diagn osis: E11.9, I10, E46, D64.9 Comment: [id number], OGONTZ, RM112, HM, 02/06/23 Performed By: #### A LB, BMP, CBC #### [address] Erythrocyte distribution width (RBC) [Ratio] 14.4 % Normal 12.0-14.8 [facility] Comment on above: Order Comment: Diagn osis: E11.9, I10, E46, D64.9 Comment: [id number], OGONTZ, RM112, HM, 02/06/23 Performed By: #### A LB, BMP, CBC #### [address] Hematocrit (Bld) [Volume fraction] 30.9 % Low 38.8-50.0 [facility] Comment on above: Order Comment: Diagn osis: E11.9, I10, E46, D64.9 Comment: [id number], OGONTZ, RM112, HM, 02/06/23 Performed By: #### A LB, BMP, CBC #### [address] Hemoglobin (Bld) [Mass/Vol] 10.3 g/dL Low 13.0-17.0 [facility] Comment on above: Order Comment: Diagn osis: E11.9, I10, E46, D64.9 Comment: [id number], OGONTZ, RM112, HM, 02/06/23 Performed By: #### A LB, BMP, CBC #### [facility] [address] Lymphocytes (Bld) [#/Vol] 1.3 10*3/uL Normal 1.00-4.8 [facility] Comment on above: Order Comment: Diagn osis: E11.9, I10, E46, D64. Comment: [id number], OGONTZ, RM112, HM, 02/06/23 Performed By: #### A LB, BMP, CBC #### [facility] [address] [place] [id number] [facility] Lymphocytes/100 WBC (Bld) 28.3 % Normal . [facility] Comment on above: Order Comment: Diagn osis: E11.9, I10, E46, D64. Comment: [id number], OGONTZ, RM112, HM, 02/06/23 Performed By: #### A LB, BMP, CBC #### [facility] [address] [id number] [facility] MCH (RBC) [Entitic mass] 32.0 pg Normal 27.5-35.2 [facility] Comment on above: Order Comment: Diagn osis: E11.9, I10, E46, D64.9 Comment: [id number], OGONTZ, RM112, HM, 02/06/23 Performed By: #### A LB, BMP, CBC #### [facility] [address] [id number] [facility] MCV (RBC) [Entitic vol] 96.3 fL Normal 83.5-101 [facility] Comment on above: Order Comment: Diagn osis: E11.9, I10, E46, D64. Comment: [id number], OGONTZ, RM112, HM, 02/06/23 Performed By: #### A LB, BMP, CBC #### [facility] [address] [id number] [facility] Mean Corpuscular HGB Conc 33.3 g/dL Normal 32.5-35.6 [facility] Comment on above: Order Comment: Diagn osis: E11.9, I10, E46, D64.9 Comment: [id number], OGONTZ, RM112, HM, 02/06/23 Performed By: #### A LB, BMP, CBC #### [facility] [address] [id number] [place] Monocytes (Bld) [#/Vol] 0.5 10*3/uL Normal 0.0-0.8 [facility] Comment on above: Order Comment: Diagn osis: E11.9, I10, E46, D64.9 Comment: [id number], OGONTZ, RM112, HM, 02/06/23 Performed By: #### A LB, BMP, CBC #### [address] [id number] [place] Monocytes/100 WBC (Bld) 10.1 % Normal . [facility] Comment on above: Order Comment: Diagn osis: E11.9, I10, E46, D64.9 Comment: [id number], OGONTZ, RM112, HM, 02/06/23 Performed By: #### A LB, BMP, CBC #### [address] [id number] [place] Neutrophils (Bld) [#/Vol] 2.7 10*3/uL Normal 1.8-7.7 [facility] Comment on above: Order Comment: Diagn osis: E11.9, I10, E46, D64.9 Comment: [id number], OGONTZ, RM112, HM, 02/06/23 Performed By: #### A LB, BMP, CBC #### [facility] [address] [place], [place] [id number] [place] Neutrophils/100 WBC (Bld) 58.1 % Normal . [facility] Comment on above: Order Comment: Diagn osis: E11.9, I10, E46, D64.9 Comment: [id number], OGONTZ, RM112, HM, 02/06/23 Performed By: #### A LB, BMP, CBC #### [facility] [address] NRBC% 0.0 /100{WBC} Normal 0-0.5 [facility] Comment on above: Order Comment: Diagn osis: E11.9, I10, E46, D64.9 Comment: [id number], OGONTZ, RM112, HM, 02/06/23 Performed By: #### A LB, BMP, CBC #### [facility] [address] Platelet mean volume (Bld) [Entitic vol] 7.6 fL Normal 6.6-10.1 [facility] Comment on above: Order Comment: Diagn osis: E11.9, I10, E46, D64.9 Comment: [id number], OGONTZ, RM112, , 02/06/23 Performed By: #### A LB, BMP, CBC #### [facility] [address] [place] [address] Platelets (Bld) [#/Vol] 281 10*3/uL Normal 150-450 [facility] Comment on above: Order Comment: Diagn osis: E11.9, I10, E46, D64.9 Comment: [id number], OGONTZ, RM112, , 02/06/23 Performed By: #### A LB, BMP, CBC #### [facility] [address] RBC (Bld) [#/Vol] 3.21 10*6/uL Low 3.90-5.60 [facility] Comment on above: Order Comment: Diagn osis: E11.9, I10, E46, D64.9 Comment: [id number], OGONTZ, RM112, , 02/06/23 Performed By: #### A LB, BMP, CBC #### [facility] [address] WBC (Bld) [#/Vol] 4.7 10*3/uL Normal 4.1-10.5 [facility] Comment on above: Order Comment: Diagn osis: E11.9, I10, E46, D64.9 Comment: [id number], DECLAN, RM112, HM, 02/06/23 Performed By: #### A LB, BMP, CBC #### [facility] [address] Creatinine [Mass/volume] in Serum or PlasmaOrdered By: Adriane Espitia on 02-10-2023 Creatinine [Mass/Vol] 0.65 mg/dL 0.70-1.30 [facility] Eosinophils Auto (Bld) [#/Vo l]Ordered By: Adriane [...] on 02-10-2023 Glucose [Mass/Vol] 102 mg/dL 70-100 [facility] Comment on above: ADA recommended refe rence [...] 02-10-2023 MCHC (RBC) [Mass/Vol] 33.3 g/dL 32.5-35.6 [facility] MCV Auto (RBC) [Entitic vol] Ordered By: [...] on 02-10-2023 Potassium [Moles/Vol] 4.7 mmol/L 3.5-5.1 [facility] RBC Auto (Bld) [#/Vol]Ordere d By: Adriane Espitia on 02-10-2023 RBC (Bld) [#/Vol] 3.21 10*6/uL 3.90-5.60 [facility] Relevant diagnostic tests/la boratory data Narrativeon 02-10-2023 Albumin [Mass/Vol] 3.4 g/dL Low 3.5-5.7 [facility] Work Phone: Anion gap [Moles/Vol] 11.5 mmol/L 6.0-15.0 [facility] Work Phone: Basophils (Bld) [#/Vol] 0 10*3/uL 0.0-0.2 [facility] Work Phone: Basophils/100 WBC (Bld) 0.4 % . [facility] Work Phone: Calcium [Mass/Vol] 8.8 mg/dL 8.6-10.3 [facility] Work Phone: Chloride [Moles/Vol] 103 mmol/L 98-107 [facility] Work Phone: CO2 [Moles/Vol] 25.2 mmol/L 21.0-31.0 [facility] Work Phone: Creatinine [Mass/Vol] 0.65 mg/dL Low 0.70-1.30 [facility] Work Phone: Eosinophils (Bld) [#/Vol] 0.1 10*3/uL 0.0-0.45 [facility] Work Phone: Eosinophils/100 WBC (Bld) 3.1 % . [facility] Work Phone: Erythrocyte distribution width (RBC) [Entitic vol] 14.4 % 12.0-14.8 [facility] Work Phone: GFR/1.73 sq M.predicted MDRD (S/P/Bld) [Vol rate/Area] mL/min/{1.73_m2} [facility] Work Phone: Glucose [Mass/Vol] 102 mg/dL High 70-100 [facility] Work Phone: Hematocrit (Bld) [Volume fraction] 30.9 % Low 38.8-50.0 [facility] Work Phone: Hemoglobin (Bld) [Mass/Vol] 10.3 g/dL Low 13.0-17.0 [facility] Work Phone: Lymphocytes (Bld) [#/Vol] 1.3 10*3/uL 1.00-4.8 [facility] Work Phone: Lymphocytes/100 WBC (Bld) 28.3 % . [facility] Work Phone: MCH (RBC) [Entitic mass] 96.3 fL 83.5-101 [facility] Work Phone: MCH (RBC) [Entitic mass] 32 pg 27.5-35.2 [facility] Work Phone: MCHC (RBC) [Mass/Vol] 33.3 g/dL 32.5-35.6 [facility] Work Phone: Monocytes (Bld) [#/Vol] 0.5 10*3/uL 0.0-0.8 [facility] Work Phone: Monocytes/100 WBC (Bld) 10.1 % . [facility] Work Phone: Neutrophils (Bld) [#/Vol] 2.7 10*3/uL 1.8-7.7 [facility] Work Phone: Neutrophils/100 WBC (Bld) 58.1 % . [facility] Work Phone: Nucleated RBC (Bld) [#/Vol] 0 /100{WBC} 0-0.5 [facility] Work Phone: Platelet mean volume (Bld) [Entitic vol] 7.6 fL 6.6-10.1 [facility] Work Phone: Platelets (Bld) [#/Vol] 281 10*3/uL 150-450 [facility] Work Phone: Potassium [Moles/Vol] 4.7 mmol/L 3.5-5.1 [facility] Work Phone: RBC (Bld) [#/Vol] 3.21 10*6/uL Low 3.90-5.60 [facility] Work Phone: Sodium [Moles/Vol] 135 mmol/L Low 136-145 [facility] Work Phone: Urea nitrogen [Mass/Vol] 19 mg/dL 7-25 [facility] Work Phone: WBC (Bld) [#/Vol] 4.7 10*3/uL 4.1-10.5 [facility] Work Phone: WBC casts LM.LPF (Urine sed) [#/Area] 4.7 10*3/uL 4.1-10.5 [facility] Work Phone: Serum or plasma anion gap de terminationOrdered By: Adriane Espitia on 02-10-2023 Anion gap [Moles/Vol] 11.5 mmol/L 6.0-15.0 [facility] Sodium [Moles/volume] in Ser um or PlasmaOrdered By: Adriane Espitia on 02-10-2023 Sodium [Moles/Vol] 135 mmol/L 136-145 [facility] Urea nitrogen [Mass/volume] in Serum or PlasmaOrdered By: Adriane Espitia on 02-10-2023 Urea nitrogen [Mass/Vol] 19 mg/dL 7-25 [facility] WBC Auto (Bld) [#/Vol]Ordere d By: Adriane Espitia on 02-10-2023 WBC (Bld) [#/Vol] 4.7 10*3/uL 4.1-10.5 [facility] Relevant diagnostic tests/la boratory data Narrativeon 01-28-2023 Albumin [Mass/Vol] 2.9 g/dL Low 3.5-5.7 [facility] Work Phone: Anion gap [Moles/Vol] 7.1 mmol/L 6.0-15.0 [facility] Work Phone: Basophils (Bld) [#/Vol] 0 10*3/uL 0.0-0.2 [facility] Work Phone: Basophils/100 WBC (Bld) 0.5 % . [facility] Work Phone: C-Peptide 1.4 ng/mL 1.1-4.4 [facility] Work Phone: Calcium [Mass/Vol] 7.8 mg/dL Low 8.6-10.3 [facility] Work Phone: Chloride [Moles/Vol] 109 mmol/L High 98-107 [facility] Work Phone: Cholesterol [Mass/Vol] 72 mg/dL Low 140-200 [facility] Work Phone: Cholesterol in HDL [Mass/Vol] 22 mg/dL Low 23-92 [facility] Work Phone: Cholesterol.total/Cho lesterol in HDL [Mass ratio] 3.3 {ratio} <5.0 [facility] Work Phone: CK [Catalytic activity/Vol] 59 U/L 30-223 [facility] Work Phone: CO2 [Moles/Vol] 25.2 mmol/L 21.0-31.0 [facility] Work Phone: Cobalamin (Vitamin B12) [Mass/Vol] 498 pg/mL 180-914 [facility] Work Phone: Creatinine [Mass/Vol] 0.66 mg/dL Low 0.70-1.30 [facility] Work Phone: Eosinophils (Bld) [#/Vol] 0.1 10*3/uL 0.0-0.45 [facility] Work Phone: Eosinophils/100 WBC (Bld) 3.7 % . [facility] Work Phone: Erythrocyte distribution width (RBC) [Entitic vol] 14.7 % 12.0-14.8 [facility] Work Phone: GFR/1.73 sq M.predicted MDRD (S/P/Bld) [Vol rate/Area] mL/min/{1.73_m2} [facility] Work Phone: Glucose [Mass/Vol] 151 mg/dL [facility] Work Phone: Glucose [Mass/Vol] 111 mg/dL High 70-100 [facility] Work Phone: HbA1c (Bld) [Mass fraction] 6.9 % High 4.3-5.6 [facility] Work Phone: Hematocrit (Bld) [Volume fraction] 27.4 % Low 38.8-50.0 [facility] Work Phone: Hemoglobin (Bld) [Mass/Vol] 9.1 g/dL Low 13.0-17.0 [facility] Work Phone: LDL Cholesterol,Calculate d 40 mg/dL 0-100 [facility] Work Phone: Lymphocytes (Bld) [#/Vol] 1.1 10*3/uL 1.00-4.8 [facility] Work Phone: Lymphocytes/100 WBC (Bld) 27.2 % . [facility] Work Phone: MCH (RBC) [Entitic mass] 95.3 fL 83.5-101 [facility] Work Phone: MCH (RBC) [Entitic mass] 31.7 pg 27.5-35.2 [facility] Work Phone: MCHC (RBC) [Mass/Vol] 33.3 g/dL 32.5-35.6 [facility] Work Phone: Monocytes (Bld) [#/Vol] 0.4 10*3/uL 0.0-0.8 [facility] Work Phone: Monocytes/100 WBC (Bld) 10.1 % . [facility] Work Phone: Neutrophils (Bld) [#/Vol] 2.3 10*3/uL 1.8-7.7 [facility] Work Phone: Neutrophils/100 WBC (Bld) 58.5 % . [facility] Work Phone: Nucleated RBC (Bld) [#/Vol] 0.2 /100{WBC} 0-0.5 [facility] Work Phone: Platelet mean volume (Bld) [Entitic vol] 7 fL 6.6-10.1 [facility] Work Phone: Platelets (Bld) [#/Vol] 302 10*3/uL 150-450 [facility] Work Phone: Potassium [Moles/Vol] 4.3 mmol/L 3.5-5.1 [facility] Work Phone: RBC (Bld) [#/Vol] 2.88 10*6/uL Low 3.90-5.60 [facility] Work Phone: Reticulocyte Number 0.035 10*6/uL 0.024-0 .08 4 [facility] Work Phone: Reticulocyte Percent 1.2 % 0.5-1.5 [facility] Work Phone: Sodium [Moles/Vol] 137 mmol/L 136-145 [facility] Work Phone: Triglyceride w/Reflex 52 mg/dL 0-149 [facility] Work Phone: Urea nitrogen [Mass/Vol] 16 mg/dL 7-25 [facility] Work Phone: Vitamin D 25 Hydroxy Total < 7.0 Low 30-100 [facility] Work Phone: VLDL CHOLESTEROL 10 mg/dL [facility] Work Phone: WBC (Bld) [#/Vol] 4 10*3/uL Low 4.1-10.5 [facility] Work Phone: WBC casts LM.LPF (Urine sed) [#/Area] 4 10*3/uL Low 4.1-10.5 [facility] Work Phone: A1C with Estimated Average G [facility] 01-27-2023 Glucose [Mass/Vol] 151 mg/dL Normal [facility] Comment on above: Order Comment: Diagn osis: D64.9, I48.0, E11.9, K90.81 Comment: [id number], DECLAN, RM112, , 01/23/23 Result Comment: PERF ORMED BY: [facility] [address] [place] [address] PATHOLOGIST [employer] DIRECTOR ESTIVEN GENTILE M.D. Performed By: #### C K, B12, RETIC, CBC, BMP, LIPID, [id number], A1C WTH eA, ALB #### [facility] [address] [place] [address] [place] #### CPEP #### [facility] , HbA1c (Bld) [Mass fraction] 6.9 % High 4.3-5.6 [facility] Comment on above: Order Comment: Diagn osis: D64.9, I48.0, E11.9, K90.81 Comment: [id number] RM112, , 01/23/23 Result Comment: Incr eased risk for diabetes: 5.7 - 6.4 diabetes: >6.4 glycemic control for adults with diabetes: <7.0 Performed By: #### C K, B12, RETIC, CBC, BMP, LIPID, [id number], A1C WTH eA, ALB #### [facility] [address] [place] [address] #### CPEP #### [facility] , Absolute reticulocyte countO rdered By: Adriane Espitia on 01-27-2023 Reticulocytes (Bld) [#/Vol] 0.035 10*6/uL 0.024-0.08 4 [facility] Albumin Levelon 01-27-2023 Albumin [Mass/Vol] 2.9 g/dL Low 3.5-5.7 [facility] Comment on above: Order Comment: Diagn osis: D64.9, I48.0, E11.9, K90.81 Comment: [id number] RM112, , 01/23/23 Performed By: #### C K, B12, RETIC, CBC, BMP, LIPID, [id number], A1C WTH eA, ALB #### [facility] [address] [place] [address] [place] #### CPEP #### [facility] , Albumin [Mass/volume] in Ser um or Plasma by Bromocresol green (BCG) dye binding methoOrdered By: Adriane Espitia on 01-27-2023 Albumin BCG dye [Mass/Vol] 2.9 g/dL 3.5-5.7 [facility] Basic Metabolic Panelon 08-0 Anion gap [Moles/Vol] 7.1 mmol/L Normal 6.0-15.0 [facility] Comment on above: Order Comment: Diagn osis: D64.9, I48.0, E11.9, K90. Comment: [id number], DECLAN, RMRobinson, , 01/23/23 Performed By: #### C K, B12, RETIC, CBC, BMP, LIPID, [id number], A1C WTH eA, ALB #### [facility] [address] #### CPEP #### [facility] , Calcium [Mass/Vol] 7.8 mg/dL Low 8.6-10.3 [facility] Comment on above: Order Comment: Diagn osis: D64.9, I48.0, E11., K. Comment: [id number], DECLAN, RMRobinson, , 01/23/23 Performed By: #### C K, B12, RETIC, CBC, BMP, LIPID, [id number], A1C WTH eA, ALB #### [facility] [address] [place] [address] [place] #### CPEP #### [facility] , Chloride [Moles/Vol] 109 mmol/L High 98-107 [facility] Comment on above: Order Comment: Diagn osis: D64.9, I48.0, E11., K90. Comment: [id number], DECLAN, RM112, , 01/23/23 Performed By: #### C K, B12, RETIC, CBC, BMP, LIPID, [id number], A1C WTH eA, ALB #### [facility] [address] [place] [address] [place] #### CPEP #### [facility] , CO2 [Moles/Vol] 25.2 mmol/L Normal 21.0-31.0 [facility] Comment on above: Order Comment: Diagn osis: D64.9, I48.0, E11.9, K90.81 Comment: [id number], OGONTZ, RM112, HM, 01/23/23 Performed By: #### C K, B12, RETIC, CBC, BMP, LIPID, [id number], A1C WTH eA, ALB #### [facility] [address] [place] [address] [place] #### CPEP #### [facility] , Creatinine [Mass/Vol] 0.66 mg/dL Low 0.70-1.30 [facility] Comment on above: Order Comment: Diagn osis: D64.9, I48.0, E11, Comment: [id number], OGONTZ, RM112, HM, 01/23/23 Performed By: #### C K, B12, RETIC, CBC, BMP, LIPID, [id number], A1C WTH eA, ALB #### [address] #### CPEP #### [facility] , GFR/1.73 sq M.predicted MDRD (S/P/Bld) [Vol rate/Area] mL/min/{1.73_m2} [facility] Comment on above: Order Comment: Diagn osis: D64.9, I48.0, E11, Comment: [id number], OGONTZ, RM112, HM, 01/23/23 Performed By: #### C K, B12, RETIC, CBC, BMP, LIPID, [id number], A1C WTH eA, ALB #### [facility] [address] [place] [address] [place] #### CPEP #### [facility] , Glucose [Mass/Vol] 111 mg/dL High 70-100 [facility] Comment on above: Order Comment: Diagn osis: D64.9, I48.0, E11, Comment: [id number], OGONTZ, RM112, HM, 01/23/23 Result Comment: [facility] Glucose Reference Range is dependent on time and content of last meal. Glucose of more than 200 mg/dL in a nonstressed, ambulatory subject supports the diagnosis of Diabetes Mellitus. ADA recommended reference range Performed By: #### C K, B12, RETIC, CBC, BMP, LIPID, [id number], A1C WTH eA, ALB #### [address] #### CPEP #### [facility] , Potassium [Moles/Vol] 4.3 mmol/L Normal 3.5-5.1 [facility] Comment on above: Order Comment: Diagn osis: D64.9, I48.0, E11.9, K90.81 Comment: [id number], DECLAN, RM112, , 01/23/23 Performed By: #### C K, B12, RETIC, CBC, BMP, LIPID, [id number], A1C WTH eA, ALB #### [address] #### CPEP #### [facility] , Sodium [Moles/Vol] 137 mmol/L Normal 136-145 [facility] Comment on above: Order Comment: Diagn osis: D64.9, I48.0, E11.9, K90.81 Comment: [id number], DECLAN, RM112, , 01/23/23 Performed By: #### C K, B12, RETIC, CBC, BMP, LIPID, [id number], A1C WTH eA, ALB #### [place] [address] [place] #### CPEP #### [facility] , Urea nitrogen [Mass/Vol] 16 mg/dL Normal 7-25 [facility] Comment on above: Order Comment: Diagn osis: D64.9, I48.0, E11.9, K90.81 Comment: [id number], DECLAN, RM112, , 01/23/23 Performed By: #### C K, B12, RETIC, CBC, BMP, LIPID, [id number], A1C WTH eA, ALB #### [place] [address] [place] #### CPEP #### [facility] , Basophils [...] Diagn osis: E11.9, I10, E46, D64.9 Comment: [id number], DECLAN, RM112, , 02/06/23 Result Comment: C-Pe ptide reference interval is for fasting patients. Performed at: - [facility] [id number] [employer] Therapist: Silverio Mario PhD, Phone: [phone] PERFORMED BY: [place] [address] PATHOLOGIST EX[employer]IVE [employer] DIRECTOR ESTIVEN GENTILE M.D. Performed By: #### A LB, BMP, CBC #### [address] Calcium [Mass/volume] in Ser um or PlasmaOrdered By: Adriane Espitia on 01-27-2023 Calcium [Mass/Vol] 7.8 mg/dL 8.6-10.3 [facility] Carbon dioxide, total [Moles /volume] in Serum or PlasmaOrdered By: Adriane Espitia on 01-27-2023 CO2 [Moles/Vol] 25.2 mmol/L 21.0-31.0 [facility] Chloride [Moles/volume] in S brandi or PlasmaOrdered By: Adriane Espitia on 01-27-2023 Chloride [Moles/Vol] 109 mmol/L 98-107 [facility] Cholesterol [Mass/volume] in Serum or PlasmaOrdered By: [...] Diagn osis: D64.9, I48.0, E11.9, K90.81 Comment: [id number], OGONTZ, RM112, , 01/23/23 Performed By: #### C K, B12, RETIC, CBC, BMP, LIPID, [id number], A1C WTH eA, ALB #### [facility] [address] [place] [address] #### CPEP #### [facility] , Basophils/100 WBC (Bld) 0.5 % Normal . [facility] Comment on above: Order Comment: Diagn osis: D64.9, I48.0, E11.9, K90.81 Comment: [id number], OGONTZ, RM112, , 01/23/23 Performed By: #### C K, B12, RETIC, CBC, BMP, LIPID, [id number], A1C WTH eA, ALB #### [place] [address] [place] #### CPEP #### [facility] , Eosinophils (Bld) [#/Vol] 0.1 10*3/uL Normal 0.0-0.45 [facility] Comment on above: Order Comment: Diagn osis: D64.9, I48.0, E11.9, K90.81 Comment: [id number], DECLAN, RM112, , 01/23/23 Performed By: #### C K, B12, RETIC, CBC, BMP, LIPID, [id number], A1C WTH eA, ALB #### [facility] [address] [place] [address] #### CPEP #### [facility] , Eosinophils/100 WBC (Bld) 3.7 % Normal . [facility] Comment on above: Order Comment: Diagn osis: D64.9, I48.0, E11.9, K Comment: [id number], DECLAN, RM112, , 01/23/23 Performed By: #### C K, B12, RETIC, CBC, BMP, LIPID, [id number], A1C WTH eA, ALB #### [facility] [address] [place] [address] #### CPEP #### [facility] , Erythrocyte distribution width (RBC) [Ratio] 14.7 % Normal 12.0-14.8 [facility] Comment on above: Order Comment: Diagn osis: D64.9, I48.0, E11.9, K90.81 Comment: [id number], DECLAN, RM112, , 01/23/23 Performed By: #### C K, B12, RETIC, CBC, BMP, LIPID, [id number], A1C WTH eA, ALB #### [address] #### CPEP #### [facility] , Hematocrit (Bld) [Volume fraction] 27.4 % Low 38.8-50.0 [facility] Comment on above: Order Comment: Diagn osis: D64.9, I48.0, E11.9, K90.81 Comment: [id number], DECLAN, RM112, , 01/23/23 Performed By: #### C K, B12, RETIC, CBC, BMP, LIPID, [id number], A1C WTH eA, ALB #### [facility] [address] [place] [address] #### CPEP #### [facility] , Hemoglobin (Bld) [Mass/Vol] 9.1 g/dL Low 13.0-17.0 [facility] Comment on above: Order Comment: Diagn osis: D64.9, I48.0, E11.9, K90.81 Comment: [id number], OGMIKHAILZ, RM112, HM, 01/23/23 Performed By: #### C K, B12, RETIC, CBC, BMP, LIPID, [id number], A1C WTH eA, ALB #### [address] #### CPEP #### [facility] , Lymphocytes (Bld) [#/Vol] 1.1 10*3/uL Normal 1.00-4.8 [facility] Comment on above: Order Comment: Diagn osis: D64.9, I48.0, E11.9, K90.81 Comment: [id number], OGONTZ, RM112, , 01/23/23 Performed By: #### C K, B12, RETIC, CBC, BMP, LIPID, [id number], A1C WTH eA, ALB #### [address] #### CPEP #### [facility] , Lymphocytes/100 WBC (Bld) 27.2 % Normal . [facility] Comment on above: Order Comment: Diagn osis: D64.9, I48.0, E11.9, K90.81 Comment: [id number], OGONTZ, RM112, , 01/23/23 Performed By: #### C K, B12, RETIC, CBC, BMP, LIPID, [id number], A1C WTH eA, ALB #### [place] [address] [place] #### CPEP #### [facility] , MCH (RBC) [Entitic mass] 31.7 pg Normal 27.5-35.2 [facility] Comment on above: Order Comment: Diagn osis: D64.9, I48.0, E11, Comment: [id number], DECLAN[facility] , 01/23/23 Performed By: #### C K, B12, RETIC, CBC, BMP, LIPID, [id number], A1C WTH eA, ALB #### [facility] [address] [place] [address] #### CPEP #### [facility] , MCV (RBC) [Entitic vol] 95.3 fL Normal 83.5-101 [facility] Comment on above: Order Comment: Diagn osis: D64.9, I48.0, , Comment: [id number], RICKYNICOLAS, [facility], , 01/23/23 Performed By: #### C K, B12, RETIC, CBC, BMP, LIPID, [id number], A1C WTH eA, ALB #### [address] #### CPEP #### [facility] , Mean Corpuscular HGB Conc 33.3 g/dL Normal 32.5-35.6 [facility] Comment on above: Order Comment: Diagn osis: D64.9, I48.0, , Comment: [id number], DECLAN, [facility], , 01/23/23 Performed By: #### C K, B12, RETIC, CBC, BMP, LIPID, [id number], A1C WTH eA, ALB #### [facility] [address] [place] [address] [place] #### CPEP #### [facility] , Monocytes (Bld) [#/Vol] 0.4 10*3/uL Normal 0.0-0.8 [facility] Comment on above: Order Comment: Diagn osis: D64.9, I48.0, E11, Comment: [id number], OGONTZ, RM112, HM, 01/23/23 Performed By: #### C K, B12, RETIC, CBC, BMP, LIPID, [id number], A1C WTH eA, ALB #### [address] #### CPEP #### [facility] , Monocytes/100 WBC (Bld) 10.1 % Normal . [facility] Comment on above: Order Comment: Diagn osis: D64.9, I48.0, E11., K Comment: [id number], OGONTZ, RM112, HM, 01/23/23 Performed By: #### C K, B12, RETIC, CBC, BMP, LIPID, [id number], A1C WTH eA, ALB #### [address] #### CPEP #### [facility] , Neutrophils (Bld) [#/Vol] 2.3 10*3/uL Normal 1.8-7.7 [facility] Comment on above: Order Comment: Diagn osis: D64.9, I48.0, E11.9, Comment: [id number], OGONTZ, RM112, HM, 01/23/23 Performed By: #### C K, B12, RETIC, CBC, BMP, LIPID, [id number], A1C WTH eA, ALB #### [place] [address] [place] #### CPEP #### [facility] , Neutrophils/100 WBC (Bld) 58.5 % Normal . [facility] Comment on above: Order Comment: Diagn osis: D64.9, I48.0, E11., Comment: [id number], OGONTZ, RM112, HM, 01/23/23 Performed By: #### C K, B12, RETIC, CBC, BMP, LIPID, [id number], A1C WTH eA, ALB #### [place] [address] [place] #### CPEP #### [facility] , NRBC% 0.2 /100{WBC} Normal 0-0.5 [facility] Comment on above: Order Comment: Diagn osis: D64.9, I48.0, E11.9, Comment: [id number], OGONTZ, RM112, , 01/23/23 Performed By: #### C K, B12, RETIC, CBC, BMP, LIPID, [id number], A1C WTH eA, ALB #### [facility] [facility] [address] [place] [address] #### CPEP #### [facility] , Platelet mean volume (Bld) [Entitic vol] 7.0 fL Normal 6.6-10.1 [facility] Comment on above: Order Comment: Diagn osis: D64.9, I48.0, E11., Comment: [id number], OGONTZ, RM112, , 01/23/23 Performed By: #### C K, B12, RETIC, CBC, BMP, LIPID, [id number], A1C WTH eA, ALB #### [facility] [address] [place] [address] #### CPEP #### [facility] , Platelets (Bld) [#/Vol] 302 10*3/uL Normal 150-450 [facility] Comment on above: Order Comment: Diagn osis: D64.9, I48.0, E11., Comment: [id number], OGONTZ, RM112, , 01/23/23 Performed By: #### C K, B12, RETIC, CBC, BMP, LIPID, [id number], A1C WTH eA, ALB #### [facility] [address] [place] [address] [place] #### CPEP #### [facility] , RBC (Bld) [#/Vol] 2.88 10*6/uL Low 3.90-5.60 [facility] Comment on above: Order Comment: Diagn osis: D64.9, I48.0, E11.9, K90.81 Comment: [id number], OGONTZ, RM112, HM, 01/23/23 Performed By: #### C K, B12, RETIC, CBC, BMP, LIPID, [id number], A1C WTH eA, ALB #### [address] #### CPEP #### [facility] , WBC (Bld) [#/Vol] 4.0 10*3/uL Low 4.1-10.5 [facility] Comment on above: Order Comment: Diagn osis: D64.9, I48.0, E11.9, K90.81 Comment: [id number], OGONTZ, RM112, HM, 01/23/23 Performed By: #### C K, B12, RETIC, CBC, BMP, LIPID, [id number], A1C WTH eA, ALB #### [address] #### CPEP #### [facility] , Creatine Kinaseon 01-27-2023 CK [Catalytic activity/Vol] 59 U/L Normal -223 [facility] Comment on above: Order Comment: Diagn osis: D64.9, I48.0, E11.9, K90.81 Comment: [id number], OGMIKHAILZ, RM112, , 01/23/23 Result Comment: PERF ORMED BY: [place] [address] PATHOLOGIST EXEC[employer]IVE [employer] DIRECTOR ESTIVEN GENTILE M.D. Performed By: #### C K, B12, RETIC, CBC, BMP, LIPID, [id number], A1C WTH eA, ALB #### [address] #### CPEP #### [facility] , Creatine kinase [Enzymatic a ctivity/volume] in Serum or PlasmaOrdered By: Adriane Espitia on 01-27-2023 CK [Catalytic activity/Vol] 59 U/L 30-223 [facility] Creatinine [Mass/volume] in Serum or PlasmaOrdered By: Adriane Espitia on 01-27-2023 Creatinine [Mass/Vol] 0.66 mg/dL 0.70-1.30 [facility] Eosinophils Auto (Bld) [#/Vo l]Ordered By: Adriane [...] on 01-27-2023 Glucose [Mass/Vol] 111 mg/dL 70-100 [facility] Comment on above: ADA recommended refe rence [...] Diagn osis: D64.9, I48.0, E11.9, K Comment: DECLAN Lo RM112, , 01/23/23 Result Comment: Chol less than 200 mg/dl low risk Chol 201-239 mg/dl borderline risk Chol 240 mg/dl and greater high risk Performed By: #### C K, B12, RETIC, CBC, BMP, LIPID, [id number], A1C WTH eA, ALB #### [facility] [address] [place] [address] [place] #### CPEP #### [facility] , Cholesterol in HDL [Mass/Vol] 22 mg/dL Low 23-92 [facility] Comment on above: Order Comment: Diagn osis: D64.9, I48.0, E11, Comment: DECLAN Lo RM112, , 01/23/23 Result Comment: HDL CHOL ATP-III CLASSIFICATION Cardiovascular Risk HDL > or equal to 60 mg/dL LOW HDL < 40 mg/dL HIGH Performed By: #### C K, B12, RETIC, CBC, BMP, LIPID, [id number], A1C WTH eA, ALB #### [facility] [address] [place] [address] [place] #### CPEP #### [facility] , Cholesterol.total/Cho lesterol in HDL [Mass ratio] 3.3 {ratio} Normal <5.0 [facility] Comment on above: Order Comment: Diagn osis: D64.9, I48.0, E11.9, K81 Comment: [id number], DECLAN Robinson, , 01/23/23 Performed By: #### C K, B12, RETIC, CBC, BMP, LIPID, [id number], A1C WTH eA, ALB #### [address] #### CPEP #### [facility] , LDL Cholesterol,Calculate d 40 mg/dL Normal 0-100 [facility] Comment on above: Order Comment: Diagn osis: D64.9, I48.0, E11.9, K.81 Comment: [id number], DECLAN [facility], , 01/23/23 Result Comment: LDL ATP III CLASSIFICATION LDL less than 100 mg/dL Optimal LDL 100-129 mg/dL Near or above optimal LDL 130-159 mg/dL Borderline high LDL 160-189 mg/dL High LDL greater than 189 mg/dL Very high Performed By: #### C K, B12, RETIC, CBC, BMP, LIPID, [id number], A1C WTH eA, ALB #### [address] #### CPEP #### [facility] , Triglyceride w/Reflex 52 mg/dL Normal 0-149 [facility] Comment on above: Order Comment: Diagn osis: D64.9, I48.0, E11.9, K.81 Comment: [id number], DECLAN, [facility], , 01/23/23 Result Comment: TRIG ATP III CLASSIFICATION TRIG less than 150 mg/dL Normal TRIG 150-199 mg/dL Borderline high TRIG 200-500 mg/dL High TRIG greater than 500 mg/dL Very high Standard traceable to the Center for Disease Conrtrol and Prevention (CDC) test method. Performed By: #### C K, B12, RETIC, CBC, BMP, LIPID, [id number], A1C WTH eA, ALB #### [place] [address] [place] #### CPEP #### [facility] , VLDL CHOLESTEROL 10 mg/dL [facility] Comment on above: Order Comment: Diagn osis: D64.9, I48.0, E11.9, K90.81 Comment: [id number], OGONTZ, RM112, HM, 01/23/23 Performed By: #### C K, B12, RETIC, CBC, BMP, LIPID, [id number], A1C WTH eA, ALB #### [address] #### CPEP #### [facility] , Lymphocytes [...] 01-27-2023 MCHC (RBC) [Mass/Vol] 33.3 g/dL 32.5-35.6 [facility] MCV Auto (RBC) [Entitic vol] Ordered By: [...] reference interval is for fasting patients.Performed at: [email or web address] [id number] Director: Silverio Mario PhD, Phone: [phone] Estimated GFR (CKD-EPI) > 60.0 mL/Min [facility] [...] on 01-27-2023 Potassium [Moles/Vol] 4.3 mmol/L 3.5-5.1 [facility] RBC Auto (Bld) [#/Vol]Ordere d By: Adriane Espitia on 01-27-2023 RBC (Bld) [#/Vol] 2.88 10*6/uL 3.90-5.60 [facility] Reticulocyte Counton 023 Reticulocyte Number 0.035 10*6/uL Normal 0.024-0 .08 4 [facility] Comment on above: Order Comment: Diagn osis: D64.9, I48.0, E11.9, K90.81 Comment: [id number], DECLAN, [facility], , 01/23/23 Result Comment: PERF ORMED BY: [place] [address] PATHOLOGIST EXEC[employer]IVE [employer] DIRECTOR ESTIVEN GENTILE M.D. Performed By: #### C K, B12, RETIC, CBC, BMP, LIPID, [id number], A1C WTH eA, ALB #### [facility] [address] [place] [address] [place] #### CPEP #### [facility] , Reticulocyte Percent 1.2 % Normal 0.5-1.5 [facility] Comment on above: Order Comment: Diagn osis: D64.9, I48.0, E11.9, K90.81 Comment: [id number], DECLAN, 112, , 01/23/23 Performed By: #### C K, B12, RETIC, CBC, BMP, LIPID, [id number], A1C WTH eA, ALB #### [facility] [address] [place] [address] [place] #### CPEP #### [facility] , Reticulocytes/100 RBC Auto ( Bld)Ordered By: Adriane Espitia on 01-27-2023 Reticulocytes/100 RBC (Bld) 1.2 % 0.5-1.5 [facility] Serum or plasma anion gap de terminationOrdered By: Adriane Espitia on 01-27-2023 Anion gap [Moles/Vol] 7.1 mmol/L 6.0-15.0 [facility] Serum or plasma high density lipoprotein (HDL) [...] on 01-27-2023 Sodium [Moles/Vol] 137 mmol/L 136-145 [facility] Triglyceride [Mass/volume] i n Serum or PlasmaOrdered [...] Diagn osis: E11.9, I10, E46, D64.9 Comment: [id number] RM112 , 02/06/23 Performed By: #### A LB, BMP, CBC #### [address] Vitamin B12 ser/plasOrdered By: Adriane Espitia on 01-27-2023 Cobalamin (Vitamin B12) [Mass/Vol] 498 pg/mL 180-914 [facility] Vitamin D 25 Hydroxy Totalon 01-27-2023 Vitamin D 25 Hydroxy Total < 7.0 Low 30-100 [facility] Comment on above: Order Comment: Diagn osis: E11.9, I10, E46, D64.9 Comment: [id number] RM112 , 02/06/23 Result Comment: TAYLER MIN D STATUS 25(OH)VITAMIN D RANGE (ng/mL) Deficient <20 Insufficient 20 to <30 Sufficient 30 to 100 Reference: Janny MF,Carmen NC, Brant CAMPUZANO, et al. Evaluation,treatment, and prevention of vitamin D deficiency; an Endocrine Society clinical practice guideline. JCEM. 2010; 96(7):1911-. PERFORMED BY: [facility] [address] [place] [address] PATHOLOGIST EXECUTIVE [employer]GR[employer] DIRECTOR ESTIVEN GENTILE M.D. Performed By: #### A LB, BMP, CBC #### [facility] [address] Vitamin D+Metabolites [Mass/ volume] in Serum [...] 01-27-2023 WBC (Bld) [#/Vol] 4.0 10*3/uL 4.1-10.5 [facility] CNPNon 01-21-2023 CNPN Normal [facility] CNPNon 01-13-2023 CNPN Normal [facility] CNNURSEon 12-26-2022 CNNURSE Normal [facility] CBC W Auto Differential pane l (Bld)on 11-28-2022 Basophils (Bld) [#/Vol] 10*3/uL Normal <0.11 [facility] Comment on above: Order Comment: Speci men Type: BLOOD SPECIMENOrdering Facility: [facility] Address: [place] [address] Performed By: #### 5 7021-8 ####[facility] LABCLIA [id number] [place] [address] Basophils/100 WBC (Bld) 0.2 % Normal [facility] Comment on above: Order Comment: Speci men Type: BLOOD SPECIMENOrdering Facility: [facility] Address: [address] [place] [address] Performed By: #### 5 7021-8 ####[facility] LABCLIA [id number] [place] [address] Differential cell count method Nom (Bld) Auto Normal [facility] Comment on above: Order Comment: Speci men Type: BLOOD SPECIMENOrdering Facility: [facility] Address: [address] [place] [address] Performed By: #### 5 7021-8 ####[facility] LABCLIA [id number] [place] [address] Eosinophils (Bld) [#/Vol] 0.07 10*3/uL Normal <0.46 [facility] Comment on above: Order Comment: Speci men Type: BLOOD SPECIMENOrdering Facility: [facility] Address: [address] [place] [address] Performed By: #### 5 7021-8 ####[facility] LABCLIA [id number] [place] [address] Eosinophils/100 WBC (Bld) 1.7 % Normal [facility] Comment on above: Order Comment: Speci men Type: BLOOD SPECIMENOrdering Facility: [facility] Address: [address] [place] [address] Performed By: #### 5 7021-8 ####[facility] LABCLIA [id number] [place] [address] Erythrocyte distribution width (RBC) [Ratio] 13.6 % Normal 11.5-15.0 [facility] Comment on above: Order Comment: Speci men Type: BLOOD SPECIMENOrdering Facility: [facility] Address: [address] [place] [address] Performed By: #### 5 7021-8 ####[facility] LABCLIA [id number] [place] [address] Hematocrit (Bld) [Volume fraction] 31.8 % Low 39.0-51.0 [facility] Comment on above: Order Comment: Speci men Type: BLOOD SPECIMENOrdering Facility: [facility] Address: [address] [place] [address] Performed By: #### 5 7021-8 ####[facility] LABCLIA [id number] [place] [address] Hemoglobin (Bld) [Mass/Vol] 10.2 g/dL Low 13.0-17.0 [facility] Comment on above: Order Comment: Speci men Type: BLOOD SPECIMENOrdering Facility: [facility] Address: [address] [place] [address] Performed By: #### 5 7021-8 ####[facility] LABCLIA [id number] [place] [address] Immature granulocytes (Bld) [#/Vol] 10*3/uL Normal <0.10 [facility] Comment on above: Order Comment: Speci men Type: BLOOD SPECIMENOrdering Facility: [facility] Address: [address] [place] [address] Performed By: #### 5 7021-8 ####[facility]IA [id number] [place] [address] Immature granulocytes/100 WBC (Bld) 0.5 % Normal [facility] Comment on above: Order Comment: Speci men Type: BLOOD SPECIMENOrdering Facility: [facility] Address: [address] [place] [address] Performed By: #### 5 7021-8 ####[facility] LABCLIA [id number] [place] [address] Lymphocytes (Bld) [#/Vol] 1.17 10*3/uL Normal 1.00-4.00 [facility] Comment on above: Order Comment: Speci men Type: BLOOD SPECIMENOrdering Facility: [facility] Address: [address] [place] [address] Performed By: #### 5 7021-8 ####[facility]CLIA [id number] [place] [address] Lymphocytes/100 WBC (Bld) 28.3 % Normal [facility] Comment on above: Order Comment: Speci men Type: BLOOD SPECIMENOrdering Facility: [facility] Address: [address] [place] [address] Performed By: #### 5 7021-8 ####[facility]CLIA [id number] [place] [address] MCH (RBC) [Entitic mass] 30.0 pg Normal 26.0-34.0 [facility] Comment on above: Order Comment: Speci men Type: BLOOD SPECIMENOrdering Facility: [facility] Address: [address] [place] [address] Performed By: #### 5 7021-8 ####[facility] LABIA [id number] [place] [address] MCHC (RBC) [Mass/Vol] 32.1 g/dL Normal 30.5-36.0 [facility] Comment on above: Order Comment: Speci men Type: BLOOD SPECIMENOrdering Facility: [facility] Address: [address] [place] [address] Performed By: #### 5 7021-8 ####[facility] LABCLIA [id number] [place] [address] MCV (RBC) [Entitic vol] 93.5 fL Normal 80.0-100.0 [facility] Comment on above: Order Comment: Speci men Type: BLOOD SPECIMENOrdering Facility: [facility] Address: [address] [place] [address] Performed By: #### 5 7021-8 ####[facility] LABIA [id number] [place] [address] Monocytes (Bld) [#/Vol] 0.38 10*3/uL Normal <0.87 [facility] Comment on above: Order Comment: Speci men Type: BLOOD SPECIMENOrdering Facility: [facility] Address: [address] [place] [address] Performed By: #### 5 7021-8 ####[facility] LABCLIA [id number] [place] [address] Monocytes/100 WBC (Bld) 9.2 % Normal [facility] Comment on above: Order Comment: Speci men Type: BLOOD SPECIMENOrdering Facility: [facility] Address: [address] [place] [address] Performed By: #### 5 7021-8 ####[facility] LABCLIA [id number] [place] [address] Neutrophils (Bld) [#/Vol] 2.49 10*3/uL Normal 1.45-7.50 [facility] Comment on above: Order Comment: Speci men Type: BLOOD SPECIMENOrdering Facility: [facility] Address: [address] [place] [address] Performed By: #### 5 7021-8 ####[facility] LABIA [id number] [place] [address] Neutrophils/100 WBC (Bld) 60.1 % Normal [facility] Comment on above: Order Comment: Speci men Type: BLOOD SPECIMENOrdering Facility: [facility] Address: [address] [place] [address] Performed By: #### 5 7021-8 ####[facility] LABIA [id number] [place] [address] Nucleated RBC (Bld) [#/Vol] 10*3/uL Normal <0.01 [facility] Comment on above: Order Comment: Speci men Type: BLOOD SPECIMENOrdering Facility: [facility] Address: [address] [place] [address] Performed By: #### 5 7021-8 ####[facility] LABCLIA [id number] [place] [address] Nucleated RBC/100 WBC (Bld) [Ratio] 0.0 /100 WBC Normal [facility] Comment on above: Order Comment: Speci men Type: BLOOD SPECIMENOrdering Facility: [facility] Address: [address] [place] [address] Performed By: #### 5 7021-8 ####[facility] LABCLIA [id number] [place] [address] Platelet mean volume (Bld) [Entitic vol] 9.3 fL Normal 9.0-12.7 [facility] Comment on above: Order Comment: Speci men Type: BLOOD SPECIMENOrdering Facility: [facility] Address: [address] [place] [address] Performed By: #### 5 7021-8 ####[facility] LABIA [id number] [place] [address] Platelets (Bld) [#/Vol] 316 10*3/uL Normal 150-400 [facility] Comment on above: Order Comment: Speci men Type: BLOOD SPECIMENOrdering Facility: [facility] Address: [address] [place] [address] Performed By: #### 5 7021-8 ####[facility] LABCLIA [id number] [place] [address] RBC (Bld) [#/Vol] 3.40 10*6/uL Low 4.20-6.00 [facility] Comment on above: Order Comment: Speci men Type: BLOOD SPECIMENOrdering Facility: [facility] Address: [address] [place] [address] Performed By: #### 5 7021-8 ####[facility] LABCLIA [id number] [place] [address] WBC (Bld) [#/Vol] 4.14 10*3/uL Normal 3.70-11.00 [facility] Comment on above: Order Comment: Speci men Type: BLOOD SPECIMENOrdering Facility: [facility] Address: [address] [place] [address] Performed By: #### 5 7021-8 ####[facility] LABCLIA [id number] [place] [address] CNNURSEon 11-28-2022 CNNURSE Normal [facility] CNOVSPon 11-28-2022 CNOVSP Normal [facility] Comprehensive metabolic 2000 panelon 11-28-2022 Albumin [Mass/Vol] 3.6 g/dL Low 3.9-4.9 [facility] Comment on above: Order Comment: Speci men Type: BLOOD SPECIMENOrdering Facility: [facility] Address: [address] [place] [address] Performed By: #### 2 4323-8 ####[facility] LABCLIA [id number] [place] [address] ALP [Catalytic activity/Vol] 143 U/L High 38-113 [facility] Comment on above: Order Comment: Speci men Type: BLOOD SPECIMENOrdering Facility: [facility] Address: [address] [place] [address] Performed By: #### 2 4323-8 ####[facility] LABCLIA [id number] [place] [address] ALT [Catalytic activity/Vol] 25 U/L Normal 10-54 [facility] Comment on above: Order Comment: Speci men Type: BLOOD SPECIMENOrdering Facility: [facility] Address: [address] [place] [address] Performed By: #### 2 4323-8 ####[facility] LABCLIA [id number] [place] [address] Anion gap [Moles/Vol] 10 mmol/L Normal 9-18 [facility] Comment on above: Order Comment: Speci men Type: BLOOD SPECIMENOrdering Facility: [facility] Address: [address] [address] Performed By: #### 2 4323-8 ####[facility] LABCLIA [id number] [place] [address] AST [Catalytic activity/Vol] 15 U/L Normal 14-40 [facility] Comment on above: Order Comment: Speci men Type: BLOOD SPECIMENOrdering Facility: [facility] Address: [address] [address] Performed By: #### 2 4323-8 ####[facility] LABCLIA [id number] [place] [address] Bilirubin [Mass/Vol] 0.2 mg/dL Normal 0.2-1.3 [facility] Comment on above: Order Comment: Speci men Type: BLOOD SPECIMENOrdering Facility: [facility] Address: [address] [address] Performed By: #### 2 4323-8 ####[facility] LABCLIA [id number] [place] [address] Calcium [Mass/Vol] 9.4 mg/dL Normal 8.5-10.2 [facility] Comment on above: Order Comment: Speci men Type: BLOOD SPECIMENOrdering Facility: [facility] Address: [address] [address] Performed By: #### 2 4323-8 ####[facility] LABCLIA [id number] [place] [address] Chloride [Moles/Vol] 103 mmol/L Normal 97-105 [facility] Comment on above: Order Comment: Speci men Type: BLOOD SPECIMENOrdering Facility: [facility] Address: [address] [place] [address] Performed By: #### 2 4323-8 ####[facility] LABCLIA [id number] [place] [address] CO2 [Moles/Vol] 19 mmol/L Low 22-30 [facility] Comment on above: Order Comment: Speci men Type: BLOOD SPECIMENOrdering Facility: [facility] Address: [address] [address] Performed By: #### 2 4323-8 ####[facility] LABCLIA [id number] [place] [address] Creatinine [Mass/Vol] 0.90 mg/dL Normal 0.73-1.22 [facility] Comment on above: Order Comment: Speci men Type: BLOOD SPECIMENOrdering Facility: [facility] Address: [address] [address] Performed By: #### 2 4323-8 ####[facility] LABCLIA [id number] [place] [address] ESTIMATED GLOMERULAR FILTRATION RATE 95 mL/min/1.73m??? Normal >=60 [facility] Comment on above: Order Comment: Speci men Type: BLOOD SPECIMENOrdering Facility: [facility] Address: [address] [place] [address] Result Comment: Megan mated Glomerular Filtration Rate [...] actual GFR. Performed By: #### 2 4323-8 ####[facility] LABCLIA [id number] [place] [address] Glucose [Mass/Vol] 422 mg/dL High 74-99 [facility] Comment on above: Order Comment: Speci farhan Type: BLOOD SPECIMENOrdering Facility: [facility] Address: [address] [address] Result Comment: The [place] [employer] (ADA) provides guidance for cutoff [...] Standards of Medical Care in Diabetes 2016, [place] [employer]. Diabetes Care. 2016.39(Suppl 1). Performed By: #### 2 4323-8 ####[facility] LABCLIA [id number] [place] [address] Potassium [Moles/Vol] 4.7 mmol/L Normal 3.7-5.1 [facility] Comment on above: Order Comment: Speci men Type: BLOOD SPECIMENOrdering Facility: [facility] Address: [address] [place] [address] Performed By: #### 2 4323-8 ####[facility] LABCLIA [id number] [place] [address] Protein [Mass/Vol] 7.0 g/dL Normal 6.3-8.0 [facility] Comment on above: Order Comment: Speci men Type: BLOOD SPECIMENOrdering Facility: [facility] Address: [address] [place] [address] Performed By: #### 2 4323-8 ####[facility] LABCLIA [id number] [place] [address] Sodium [Moles/Vol] 132 mmol/L Low 136-144 [facility] Comment on above: Order Comment: Speci men Type: BLOOD SPECIMENOrdering Facility: [facility] Address: [address] [place] [address] Performed By: #### 2 4323-8 ####[facility] LABCLIA [id number] [place] [address] Urea nitrogen [Mass/Vol] 30 mg/dL High 9-24 [facility] Comment on above: Order Comment: Speci men Type: BLOOD SPECIMENOrdering Facility: [facility] Address: [address] [place] [address] Performed By: #### 2 4323-8 ####[facility] LABCLIA [id number] [place] [address] Ferritin SerPl-mCncon 2022 Ferritin [Mass/Vol] 336.0 ng/mL Normal 30.3-565.7 [facility] Comment on above: Order Comment: Speci men Type: BLOOD SPECIMENOrdering Facility: [facility] Address: [address] [place] [address] Performed By: #### 5 0190-8, 2132-02, 2275-09, 2284-01 ####[facility] LABCLIA [id number] [place] [address] [place] Folate SerPl-mCncon 11-29-19 Folate [Mass/Vol] 11.2 ng/mL Normal >4.7 [facility] Comment on above: Order Comment: Speci men Type: BLOOD SPECIMENOrdering Facility: [facility] Address: [place] [address] Performed By: #### 5 0190-8, 2132-02, 2275-09, 2284-01 ####[facility] LABCLIA [id number] [place] [address] [place] Iron and Iron binding capaci ty panelon 11-28-2022 Iron [Mass/Vol] 37 ug/dL Low 41-186 [facility] Comment on above: Order Comment: Speci men Type: BLOOD SPECIMENOrdering Facility: [facility] Address: [address] [place] [address] Performed By: #### 5 0190-8, 2132-02, 2275-09, 2284-01 ####[facility] LABCLIA [id number] [address] [place] Iron binding capacity [Mass/Vol] 220 ug/dL Low 232-386 [facility] Comment on above: Order Comment: Speci men Type: BLOOD SPECIMENOrdering Facility: [facility] Address: [address] [place] [address] Performed By: #### 5 0190-8, 9, 4, 2284-01 ####[facility] LABIA [id number] [address] [facility] Iron/TIBC [Molar ratio] 16.8 % Normal 15.0-57.0 [facility] Comment on above: Order Comment: Speci men Type: BLOOD SPECIMENOrdering Facility: [facility] Address: [address] [place] [address] Performed By: #### 5 0190-8, 9, 2275-09, 2284-01 ####[facility] [id number] [place] [address] [place] Vit B12 [facility] Cobalamin (Vitamin B12) [Mass/Vol] 868 pg/mL Normal 232-1245 [facility] Comment on above: Order Comment: Speci men Type: BLOOD SPECIMENOrdering Facility: [facility] Address: [address] [place] [address] Performed By: #### 5 0190-8, 9, 2275-09, 2284-01 ####[facility] LABIA [id number] [place] [id number] [place] CNNURSEon 10-31-2022 CNNURSE Normal [facility] CBC W Auto Differential pane l (Bld)on 10-03-2022 Basophils (Bld) [#/Vol] 10*3/uL Normal <0.11 [facility] Comment on above: Order Comment: Speci men Type: BLOOD SPECIMENOrdering Facility: [facility] Address: [address] [place], [place] [address] Performed By: #### 5 7021-8 ####[facility] LABCLIA [id number] [place] [address] Basophils/100 WBC (Bld) 0.2 % Normal [facility] Comment on above: Order Comment: Speci men Type: BLOOD SPECIMENOrdering Facility: [facility] Address: [address] [place] [address] Performed By: #### 5 7021-8 ####[facility] LABCLIA [id number] [place] [address] Differential cell count method Nom (Bld) Auto Normal [facility] Comment on above: Order Comment: Speci men Type: BLOOD SPECIMENOrdering Facility: [facility] Address: [address] [place] [address] Performed By: #### 5 7021-8 ####[facility] LABCLIA [id number] [place] [address] Eosinophils (Bld) [#/Vol] 0.11 10*3/uL Normal <0.46 [facility] Comment on above: Order Comment: Speci men Type: BLOOD SPECIMENOrdering Facility: [facility] Address: [address] [place] [address] Performed By: #### 5 7021-8 ####[facility] LABCLIA [id number] [place] [address] Eosinophils/100 WBC (Bld) 2.2 % Normal [facility] Comment on above: Order Comment: Speci men Type: BLOOD SPECIMENOrdering Facility: [facility] Address: [address] [place] [address] Performed By: #### 5 7021-8 ####[facility] LABCLIA [id number] [place] [address] Erythrocyte distribution width (RBC) [Ratio] 12.7 % Normal 11.5-15.0 [facility] Comment on above: Order Comment: Speci men Type: BLOOD SPECIMENOrdering Facility: [facility] Address: [address] [address] Performed By: #### 5 7021-8 ####[facility] LABIA [id number] [place] [address] Hematocrit (Bld) [Volume fraction] 32.1 % Low 39.0-51.0 [facility] Comment on above: Order Comment: Speci men Type: BLOOD SPECIMENOrdering Facility: [facility] Address: [address] [place] [address] Performed By: #### 5 7021-8 ####[facility] LABIA [id number] [place] [address] Hemoglobin (Bld) [Mass/Vol] 10.2 g/dL Low 13.0-17.0 [facility] Comment on above: Order Comment: Speci men Type: BLOOD SPECIMENOrdering Facility: [facility] Address: [address] [place] [address] Performed By: #### 5 7021-8 ####[facility] LABIA [id number] [place] [address] Immature granulocytes (Bld) [#/Vol] 10*3/uL Normal <0.10 [facility] Comment on above: Order Comment: Speci men Type: BLOOD SPECIMENOrdering Facility: [facility] Address: [address] [place] [address] Performed By: #### 5 7021-8 ####[facility] LABCLIA [id number] [place] [address] Immature granulocytes/100 WBC (Bld) 0.2 % Normal [facility] Comment on above: Order Comment: Speci men Type: BLOOD SPECIMENOrdering Facility: [facility] Address: [address] [place] [address] Performed By: #### 5 7021-8 ####[facility] LABCLIA [id number] [place] [address] Lymphocytes (Bld) [#/Vol] 1.37 10*3/uL Normal 1.00-4.00 [facility] Comment on above: Order Comment: Speci men Type: BLOOD SPECIMENOrdering Facility: [facility] Address: [address] [place] [address] Performed By: #### 5 7021-8 ####[facility] LABCLIA [id number] [place] [address] Lymphocytes/100 WBC (Bld) 26.9 % Normal [facility] Comment on above: Order Comment: Speci men Type: BLOOD SPECIMENOrdering Facility: [facility] Address: [address] [place] [address] Performed By: #### 5 7021-8 ####[facility] LABCLIA [id number] [place] [address] MCH (RBC) [Entitic mass] 29.7 pg Normal 26.0-34.0 [facility] Comment on above: Order Comment: Speci men Type: BLOOD SPECIMENOrdering Facility: [facility] Address: [address] [place] [address] Performed By: #### 5 7021-8 ####[facility] LABCLIA [id number] [place] [address] MCHC (RBC) [Mass/Vol] 31.8 g/dL Normal 30.5-36.0 [facility] Comment on above: Order Comment: Speci men Type: BLOOD SPECIMENOrdering Facility: [facility] Address: [address] [place] [address] Performed By: #### 5 7021-8 ####[facility] LABCLIA [id number] [place] [address] MCV (RBC) [Entitic vol] 93.3 fL Normal 80.0-100.0 [facility] Comment on above: Order Comment: Speci men Type: BLOOD SPECIMENOrdering Facility: [facility] Address: [address] [place] [address] Performed By: #### 5 7021-8 ####[facility] LABCLIA [id number] [place] [address] Monocytes (Bld) [#/Vol] 0.39 10*3/uL Normal <0.87 [facility] Comment on above: Order Comment: Speci men Type: BLOOD SPECIMENOrdering Facility: [facility] Address: [address] [address] Performed By: #### 5 7021-8 ####[facility] LABCLIA [id number] [place] [address] Monocytes/100 WBC (Bld) 7.6 % Normal [facility] Comment on above: Order Comment: Speci men Type: BLOOD SPECIMENOrdering Facility: [facility] Address: [address] [place] [address] Performed By: #### 5 7021-8 ####[facility] LABCLIA [id number] [place] [address] Neutrophils (Bld) [#/Vol] 3.21 10*3/uL Normal 1.45-7.50 [facility] Comment on above: Order Comment: Speci men Type: BLOOD SPECIMENOrdering Facility: [facility] Address: [address] [place] [address] Performed By: #### 5 7021-8 ####[facility] LABCLIA [id number] [place] [address] Neutrophils/100 WBC (Bld) 62.9 % Normal [facility] Comment on above: Order Comment: Speci men Type: BLOOD SPECIMENOrdering Facility: [facility] Address: [address] [place] [address] Performed By: #### 5 7021-8 ####[facility] LABCLIA [id number] [place] [address] Nucleated RBC (Bld) [#/Vol] 10*3/uL Normal <0.01 [facility] Comment on above: Order Comment: Speci men Type: BLOOD SPECIMENOrdering Facility: [facility] Address: [address] [address] Performed By: #### 5 7021-8 ####[facility] LABCLIA [id number] [place] [address] Nucleated RBC/100 WBC (Bld) [Ratio] 0.0 /100 WBC Normal [facility] Comment on above: Order Comment: Speci men Type: BLOOD SPECIMENOrdering Facility: [facility] Address: [address] [address] Performed By: #### 5 7021-8 ####[facility] LABIA [id number] [place] [address] Platelet mean volume (Bld) [Entitic vol] 9.1 fL Normal 9.0-12.7 [facility] Comment on above: Order Comment: Speci men Type: BLOOD SPECIMENOrdering Facility: [facility] Address: [address] [place] [address] Performed By: #### 5 7021-8 ####[facility] LABCLIA [id number] [place] [address] Platelets (Bld) [#/Vol] 267 10*3/uL Normal 150-400 [facility] Comment on above: Order Comment: Speci men Type: BLOOD SPECIMENOrdering Facility: [facility] Address: [address] Performed By: #### 5 7021-8 ####[facility] LABIA [id number] [place] [address] RBC (Bld) [#/Vol] 3.44 10*6/uL Low 4.20-6.00 [facility] Comment on above: Order Comment: Speci men Type: BLOOD SPECIMENOrdering Facility: [facility] Address: [address] [place] [address] Performed By: #### 5 7021-8 ####[facility] LABCLIA [id number] [place] [address] WBC (Bld) [#/Vol] 5.10 10*3/uL Normal 3.70-11.00 [facility] Comment on above: Order Comment: Speci men Type: BLOOD SPECIMENOrdering Facility: [facility] Address: [address] Performed By: #### 5 7021-8 ####[facility] LABCLIA [id number] [place] [address] CNNURSEon 10-03-2022 CNNURSE Normal [facility] CNOVSPon 10-03-2022 CNOVSP Normal [facility] Comprehensive metabolic 2000 panelon 10-03-2022 Albumin [Mass/Vol] 3.7 g/dL Low 3.9-4.9 [facility] Comment on above: Order Comment: Speci men Type: BLOOD SPECIMENOrdering Facility: [facility] Address: [address] [address] Performed By: #### 2 4323-8 ####[facility] LABCLIA [id number] [place] [address] ALP [Catalytic activity/Vol] 152 U/L High 38-113 [facility] Comment on above: Order Comment: Speci men Type: BLOOD SPECIMENOrdering Facility: [facility] Address: [address] Performed By: #### 2 4323-8 ####[facility] LABCLIA [id number] [place] [address] ALT [Catalytic activity/Vol] 26 U/L Normal 10-54 [facility] Comment on above: Order Comment: Speci men Type: BLOOD SPECIMENOrdering Facility: [facility] Address: [address] [address] Performed By: #### 2 4323-8 ####[facility] LABCLIA [id number] [place] [address] Anion gap [Moles/Vol] 10 mmol/L Normal 9-18 [facility] Comment on above: Order Comment: Speci men Type: BLOOD SPECIMENOrdering Facility: [facility] Address: [address] [place] [address] Performed By: #### 2 4323-8 ####[facility] LABCLIA [id number] [place] [address] AST [Catalytic activity/Vol] 16 U/L Normal 14-40 [facility] Comment on above: Order Comment: Speci men Type: BLOOD SPECIMENOrdering Facility: [facility] Address: [address] [place] [address] Performed By: #### 2 4323-8 ####[facility] LABCLIA [id number] [place] [address] Bilirubin [Mass/Vol] 0.2 mg/dL Normal 0.2-1.3 [facility] Comment on above: Order Comment: Speci men Type: BLOOD SPECIMENOrdering Facility: [facility] Address: [address] [place] [address] Performed By: #### 2 4323-8 ####[facility] LABCLIA [id number] [place] [address] Calcium [Mass/Vol] 9.1 mg/dL Normal 8.5-10.2 [facility] Comment on above: Order Comment: Speci men Type: BLOOD SPECIMENOrdering Facility: [facility] Address: [address] [place] [address] Performed By: #### 2 4323-8 ####[facility] LABCLIA [id number] [place] [address] Chloride [Moles/Vol] 102 mmol/L Normal 97-105 [facility] Comment on above: Order Comment: Speci men Type: BLOOD SPECIMENOrdering Facility: [facility] Address: [address] [place] [address] Performed By: #### 2 4323-8 ####[facility] LABCLIA [id number] [place] [address] CO2 [Moles/Vol] 19 mmol/L Low 22-30 [facility] Comment on above: Order Comment: Speci men Type: BLOOD SPECIMENOrdering Facility: [facility] Address: [address] [place] [address] Performed By: #### 2 4323-8 ####[facility] LABCLIA [id number] [place] [address] Creatinine [Mass/Vol] 0.76 mg/dL Normal 0.73-1.22 [facility] Comment on above: Order Comment: Speci men Type: BLOOD SPECIMENOrdering Facility: [facility] Address: [address] [place] [address] Performed By: #### 2 4323-8 ####[facility] LABCLIA [id number] [place] [address] ESTIMATED GLOMERULAR FILTRATION RATE 100 mL/min/1.73m??? Normal >=60 [facility] Comment on above: Order Comment: Speci men Type: BLOOD SPECIMENOrdering Facility: [facility] Address: [address] [place] [address] Result Comment: Megan mated Glomerular Filtration Rate [...] actual GFR. Performed By: #### 2 4323-8 ####[facility] LABCLIA [id number] [place] [address] Glucose [Mass/Vol] 470 mg/dL High 74-99 [facility] Comment on above: Order Comment: Speci men Type: BLOOD SPECIMENOrdering Facility: [facility] Address: [address] [id number] Result Comment: The [place] [employer] (ADA) provides guidance for cutoff [...] Standards of Medical Care in Diabetes 2016, [place] [employer]. Diabetes Care. 2016.39(Suppl 1). Performed By: #### 2 4323-8 ####[facility] LABCLIA [id number] [place] [address] Potassium [Moles/Vol] 5.1 mmol/L Normal 3.7-5.1 [facility] Comment on above: Order Comment: Speci men Type: BLOOD SPECIMENOrdering Facility: [facility] Address: [address] [address] Performed By: #### 2 4323-8 ####[facility] LABCLIA [id number] [place] [address] Protein [Mass/Vol] 7.1 g/dL Normal 6.3-8.0 [facility] Comment on above: Order Comment: Speci men Type: BLOOD SPECIMENOrdering Facility: [facility] Address: [address] Performed By: #### 2 4323-8 ####[facility] LABCLIA [id number] [place] [address] Sodium [Moles/Vol] 131 mmol/L Low 136-144 [facility] Comment on above: Order Comment: Speci men Type: BLOOD SPECIMENOrdering Facility: [facility] Address: [address] [address] Performed By: #### 2 4323-8 ####[facility] LABCLIA [id number] [place] [address] Urea nitrogen [Mass/Vol] 24 mg/dL Normal 9-24 [facility] Comment on above: Order Comment: Speci men Type: BLOOD SPECIMENOrdering Facility: [facility] Address: [address] [address] Performed By: #### 2 4323-8 ####[facility] LABCLIA [id number] [place] [address] Ferritin SerPl-mCncon 2022 Ferritin [Mass/Vol] 308.0 ng/mL Normal 30.3-565.7 [facility] Comment on above: Order Comment: Speci men Type: BLOOD SPECIMENOrdering Facility: [facility] Address: [address] [place] [address] Performed By: #### 5 0190-8, 2-9, 6-4, 2284-8 ####[facility] LABIA [id number] [place] [address] [place] Folate SerPl-mCncon 10-04-19 23 Folate [Mass/Vol] 11.6 ng/mL Normal >4.7 [facility] Comment on above: Order Comment: Speci men Type: BLOOD SPECIMENOrdering Facility: [facility] Address: [address] [address] Performed By: #### 5 0190-8, 2132-9, 2276-4, 2284-8 ####[facility] LABIA [id number] [place] [address] [place] Iron and Iron binding capaci ty panelon 10-03-2022 Iron [Mass/Vol] 39 ug/dL Low 41-186 [facility] Comment on above: Order Comment: Speci men Type: BLOOD SPECIMENOrdering Facility: [facility] Address: [address] [place] [address] Performed By: #### 5 0190-8, 2132-02, 2275-09, 2284-01 ####[facility] LABCLIA [id number] [place] [address] [place] Iron binding capacity [Mass/Vol] 226 ug/dL Low 232-386 [facility] Comment on above: Order Comment: Speci men Type: BLOOD SPECIMENOrdering Facility: [facility] Address: [address] Performed By: #### 5 0190-8, 2132-02, 2275-09, 2284-01 ####[facility] LABCLIA [id number] [place] [address] [place] Iron/TIBC [Molar ratio] 17.3 % Normal 15.0-57.0 [facility] Comment on above: Order Comment: Speci men Type: BLOOD SPECIMENOrdering Facility: [facility] Address: [address] [place], [place] [address] Performed By: #### 5 0190-8, 2132-02, 2275-09, 2284-01 ####[facility] LABIA [id number] [address] [place] Vit B12 [facility] 07-2 023 Cobalamin (Vitamin B12) [Mass/Vol] 1009 pg/mL Normal 232-1245 [facility] Comment on above: Order Comment: Speci men Type: BLOOD SPECIMENOrdering Facility: [facility] Address: [address] [phone] Performed By: #### 5 0190-8, 2132-02, 2275-09, 2284-01 ####[facility] LABCLIA [id number] [place] [id number] [place] Office Visit (Cardiology)on [...] follow-up, with recent hospitalization in June at [facility] for atypical chest pain, anxiety, rate [...] 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 Vitamin D3 1.25 MG (00402 UT) Oral CapsuleTAKE 1 CAPSULE Daily Xanax [...] Recorded: 16Sep2022 11:33AM Heart Rate78, L Radial Fbnbjzzi919, LUE, Sitting Cvaxvshfu11, LUE, Sitting Height5 ft 8 in Ssecrj157 lb BMI Hupeisqydb56.05 kg/m2 BSA Calculated1.78 Tobacco Useb) No PHQ-2 [...] Normal [facility] CNNURSEon 09-05-2022 CNNURSE Normal [facility] CBC W Auto Differential pane l (Bld)on 08-08-2022 Basophils (Bld) [#/Vol] 10*3/uL Normal <0.11 [facility] Comment on above: Order Comment: Speci men Type: BLOOD SPECIMENOrdering Facility: [facility] Address: [address] [place] [address] Performed By: #### 5 7021-8 ####[facility] LABCLIA [id number] [place] [address] Basophils/100 WBC (Bld) 0.2 % Normal [facility] Comment on above: Order Comment: Speci men Type: BLOOD SPECIMENOrdering Facility: [facility] Address: [address] [place] [address] Performed By: #### 5 7021-8 ####[facility] LABCLIA [id number] [place] [address] Differential cell count method Nom (Bld) Auto Normal [facility] Comment on above: Order Comment: Speci men Type: BLOOD SPECIMENOrdering Facility: [facility] Address: [address] [place] [address] Performed By: #### 5 7021-8 ####[facility] LABCLIA [id number] [place] [address] Eosinophils (Bld) [#/Vol] 0.18 10*3/uL Normal <0.46 [facility] Comment on above: Order Comment: Speci men Type: BLOOD SPECIMENOrdering Facility: [facility] Address: [address] [address] Performed By: #### 5 7021-8 ####[facility] LABCLIA [id number] [place] [address] Eosinophils/100 WBC (Bld) 3.8 % Normal [facility] Comment on above: Order Comment: Speci men Type: BLOOD SPECIMENOrdering Facility: [facility] Address: [address] [address] Performed By: #### 5 7021-8 ####[facility] LABCLIA [id number] [place] [address] Erythrocyte distribution width (RBC) [Ratio] 12.5 % Normal 11.5-15.0 [facility] Comment on above: Order Comment: Speci men Type: BLOOD SPECIMENOrdering Facility: [facility] Address: [address] [place] [address] Performed By: #### 5 7021-8 ####[facility] LABCLIA [id number] [place] [address] Hematocrit (Bld) [Volume fraction] 32.5 % Low 39.0-51.0 [facility] Comment on above: Order Comment: Speci men Type: BLOOD SPECIMENOrdering Facility: [facility] Address: [address] [place] [address] Performed By: #### 5 7021-8 ####[facility] LABCLIA [id number] [place] [address] Hemoglobin (Bld) [Mass/Vol] 10.1 g/dL Low 13.0-17.0 [facility] Comment on above: Order Comment: Speci men Type: BLOOD SPECIMENOrdering Facility: [facility] Address: [address] [place] [address] Performed By: #### 5 7021-8 ####[facility] LABCLIA [id number] [place] [address] Immature granulocytes (Bld) [#/Vol] 10*3/uL Normal <0.10 [facility] Comment on above: Order Comment: Speci men Type: BLOOD SPECIMENOrdering Facility: [facility] Address: [address] [place] [address] Performed By: #### 5 7021-8 ####[facility] LABCLIA [id number] [place] [address] Immature granulocytes/100 WBC (Bld) 0.4 % Normal [facility] Comment on above: Order Comment: Speci men Type: BLOOD SPECIMENOrdering Facility: [facility] Address: [address] [place] [address] Performed By: #### 5 7021-8 ####[facility] LABIA [id number] [place] [address] Lymphocytes (Bld) [#/Vol] 1.03 10*3/uL Normal 1.00-4.00 [facility] Comment on above: Order Comment: Speci men Type: BLOOD SPECIMENOrdering Facility: [facility] Address: [address] [place] [address] Performed By: #### 5 7021-8 ####[facility] LABCLIA [id number] [place] [address] Lymphocytes/100 WBC (Bld) 22.0 % Normal [facility] Comment on above: Order Comment: Speci men Type: BLOOD SPECIMENOrdering Facility: [facility] Address: [address] [place] [address] Performed By: #### 5 7021-8 ####[facility] LABIA [id number] [place] [address] MCH (RBC) [Entitic mass] 31.9 pg Normal 26.0-34.0 [facility] Comment on above: Order Comment: Speci men Type: BLOOD SPECIMENOrdering Facility: [facility] Address: [address] [address] Performed By: #### 5 7021-8 ####[facility] LABCLIA [id number] [place] [address] MCHC (RBC) [Mass/Vol] 31.1 g/dL Normal 30.5-36.0 [facility] Comment on above: Order Comment: Speci men Type: BLOOD SPECIMENOrdering Facility: [facility] Address: [address] [place] [address] Performed By: #### 5 7021-8 ####[facility] LABIA [id number] [place] [address] MCV (RBC) [Entitic vol] 102.5 fL High 80.0-100.0 [facility] Comment on above: Order Comment: Speci men Type: BLOOD SPECIMENOrdering Facility: [facility] Address: [address] [place] [address] Performed By: #### 5 7021-8 ####[facility] LABIA [id number] [place] [address] Monocytes (Bld) [#/Vol] 0.41 10*3/uL Normal <0.87 [facility] Comment on above: Order Comment: Speci men Type: BLOOD SPECIMENOrdering Facility: [facility] Address: [address] [place] [address] Performed By: #### 5 7021-8 ####[facility] LABCLIA [id number] [place] [address] Monocytes/100 WBC (Bld) 8.8 % Normal [facility] Comment on above: Order Comment: Speci men Type: BLOOD SPECIMENOrdering Facility: [facility] Address: [address] [place] [address] Performed By: #### 5 7021-8 ####[facility] LABCLIA [id number] [place] [place] [address] Neutrophils (Bld) [#/Vol] 3.03 10*3/uL Normal 1.45-7.50 [facility] Comment on above: Order Comment: Speci men Type: BLOOD SPECIMENOrdering Facility: [facility] Address: [address] [place] [address] Performed By: #### 5 7021-8 ####[facility] LABCLIA [id number] [place] [address] Neutrophils/100 WBC (Bld) 64.8 % Normal [facility] Comment on above: Order Comment: Speci men Type: BLOOD SPECIMENOrdering Facility: [facility] Address: [address] [place] [address] Performed By: #### 5 7021-8 ####[facility] LABCLIA [id number] [place] [address] Nucleated RBC (Bld) [#/Vol] 10*3/uL Normal <0.01 [facility] Comment on above: Order Comment: Speci men Type: BLOOD SPECIMENOrdering Facility: [facility] Address: [address] [place] [address] Performed By: #### 5 7021-8 ####[facility] LABCLIA [id number] [place] [address] Nucleated RBC/100 WBC (Bld) [Ratio] 0.0 /100 WBC Normal [facility] Comment on above: Order Comment: Speci men Type: BLOOD SPECIMENOrdering Facility: [facility] Address: [address] [place] [address] Performed By: #### 5 7021-8 ####[facility] LABCLIA [id number] [place] [address] Platelet mean volume (Bld) [Entitic vol] 9.1 fL Normal 9.0-12.7 [facility] Comment on above: Order Comment: Speci men Type: BLOOD SPECIMENOrdering Facility: [facility] Address: [address] [place] [address] Performed By: #### 5 7021-8 ####[facility] LABCLIA [id number] [place] [address] Platelets (Bld) [#/Vol] 278 10*3/uL Normal 150-400 [facility] Comment on above: Order Comment: Speci men Type: BLOOD SPECIMENOrdering Facility: [facility] Address: [address] [place] [address] Performed By: #### 5 7021-8 ####[facility] LABCLIA [id number] [place] [address] RBC (Bld) [#/Vol] 3.17 10*6/uL Low 4.20-6.00 [facility] Comment on above: Order Comment: Speci men Type: BLOOD SPECIMENOrdering Facility: [facility] Address: [address] [place] [address] Performed By: #### 5 7021-8 ####[facility] LABIA [id number] [place] [address] WBC (Bld) [#/Vol] 4.68 10*3/uL Normal 3.70-11.00 [facility] Comment on above: Order Comment: Speci men Type: BLOOD SPECIMENOrdering Facility: [facility] Address: [address] [place] [address] Performed By: #### 5 7021-8 ####[facility] LABIA [id number] [place] [address] CNNURSEon 08-08-2022 CNNURSE Normal [facility] CNOVSPon 08-08-2022 CNOVSP Normal [facility] CNPNon 08-08-2022 CNPN Normal [facility] Comprehensive metabolic 2000 panelon 08-08-2022 Albumin [Mass/Vol] 3.9 g/dL Normal 3.9-4.9 [facility] Comment on above: Order Comment: Speci men Type: BLOOD SPECIMENOrdering Facility: [facility] Address: [address] [address] Performed By: #### 2 4323-8 ####[facility] LABCLIA [id number] [place] [address] ALP [Catalytic activity/Vol] 146 U/L High 38-113 [facility] Comment on above: Order Comment: Speci men Type: BLOOD SPECIMENOrdering Facility: [facility] Address: [address] [address] Performed By: #### 2 4323-8 ####[facility] LABCLIA [id number] [place] [address] ALT [Catalytic activity/Vol] 36 U/L Normal 10-54 [facility] Comment on above: Order Comment: Speci men Type: BLOOD SPECIMENOrdering Facility: [facility] Address: [address] [address] Performed By: #### 2 4323-8 ####[facility] LABCLIA [id number] [place] [address] Anion gap [Moles/Vol] 9 mmol/L Normal 9-18 [facility] Comment on above: Order Comment: Speci men Type: BLOOD SPECIMENOrdering Facility: [facility] Address: [address] [address] Performed By: #### 2 4323-8 ####[facility] LABCLIA [id number] [place] [address] AST [Catalytic activity/Vol] 34 U/L Normal 14-40 [facility] Comment on above: Order Comment: Speci men Type: BLOOD SPECIMENOrdering Facility: [facility] Address: [address] [address] Performed By: #### 2 4323-8 ####[facility] LABCLIA [id number] [place] [address] Bilirubin [Mass/Vol] 0.3 mg/dL Normal 0.2-1.3 [facility] Comment on above: Order Comment: Speci men Type: BLOOD SPECIMENOrdering Facility: [facility] Address: [address] [address] Performed By: #### 2 4323-8 ####[facility] LABCLIA [id number] [place] [address] Calcium [Mass/Vol] 9.4 mg/dL Normal 8.5-10.2 [facility] Comment on above: Order Comment: Speci men Type: BLOOD SPECIMENOrdering Facility: [facility] Address: [address] [place] [address] Performed By: #### 2 4323-8 ####[facility] LABCLIA [id number] [place] [address] Chloride [Moles/Vol] 104 mmol/L Normal 97-105 [facility] Comment on above: Order Comment: Speci men Type: BLOOD SPECIMENOrdering Facility: [facility] Address: [address] [address] Performed By: #### 2 4323-8 ####[facility] LABCLIA [id number] [place] [address] CO2 [Moles/Vol] 19 mmol/L Low 22-30 [facility] Comment on above: Order Comment: Speci men Type: BLOOD SPECIMENOrdering Facility: [facility] Address: [address] [place] [address] Performed By: #### 2 4323-8 ####[facility] LABCLIA [id number] [place] [address] Creatinine [Mass/Vol] 0.85 mg/dL Normal 0.73-1.22 [facility] Comment on above: Order Comment: Speci men Type: BLOOD SPECIMENOrdering Facility: [facility] Address: [address] [place] [address] Performed By: #### 2 4323-8 ####[facility] LABCLIA [id number] [place] [address] ESTIMATED GLOMERULAR FILTRATION RATE 96 mL/min/1.73m??? Normal >=60 [facility] Comment on above: Order Comment: Frank real Type: BLOOD SPECIMENOrdering Facility: [facility] Address: [address] [place] [address] Result Comment: Megan mated Glomerular Filtration Rate [...] actual GFR. Performed By: #### 2 4323-8 ####[facility] LABCLIA [id number] [place] [address] Glucose [Mass/Vol] 501 mg/dL High 74-99 [facility] Comment on above: Order Comment: Frank real Type: BLOOD SPECIMENOrdering Facility: [facility] Address: [address] [place] [address] Result Comment: The [place] [employer] (ADA) provides guidance for cutoff [...] Standards of Medical Care in Diabetes 2016, [place] [employer]. Diabetes Care. 2016.39(Suppl 1). Performed By: #### 2 4323-8 ####[facility] LABCLIA [id number] [place] [address] Potassium [Moles/Vol] 5.4 mmol/L High 3.7-5.1 [facility] Comment on above: Order Comment: Speci men Type: BLOOD SPECIMENOrdering Facility: [facility] Address: [address] [address] Performed By: #### 2 4323-8 ####[facility] LABCLIA [id number] [place] [address] Protein [Mass/Vol] 7.4 g/dL Normal 6.3-8.0 [facility] Comment on above: Order Comment: Speci men Type: BLOOD SPECIMENOrdering Facility: [facility] Address: [address] [place] [address] Performed By: #### 2 4323-8 ####[facility] LABCLIA [id number] [place] [address] Sodium [Moles/Vol] 132 mmol/L Low 136-144 [facility] Comment on above: Order Comment: Speci men Type: BLOOD SPECIMENOrdering Facility: [facility] Address: [address] [place] [address] Performed By: #### 2 4323-8 ####[facility] LABCLIA [id number] [place] [address] Urea nitrogen [Mass/Vol] 29 mg/dL High 9-24 [facility] Comment on above: Order Comment: Speci men Type: BLOOD SPECIMENOrdering Facility: [facility] Address: [address] [place] [address] Performed By: #### 2 4323-8 ####[facility] LABCLIA [id number] [place] [address] Ferritin [facility] 20[facility] Ferritin [Mass/Vol] 409.0 ng/mL Normal 30.3-565.7 [facility] Comment on above: Order Comment: Speci men Type: BLOOD SPECIMENOrdering Facility: [facility] Address: [address] [place] [address] Performed By: #### 5 0190-8, 2139, 4, 8 ####[facility] LABCLIA [id number] [address] [place] [id number] [place] Folate SerPl-mCncon 08-08-19 Folate [Mass/Vol] 8.4 ng/mL Normal >4.7 [facility] Comment on above: Order Comment: Speci men Type: BLOOD SPECIMENOrdering Facility: [facility] Address: [address] [place] [address] Performed By: #### 5 0190-8, 9, 2275-09, 8 ####[facility] LABIA [id number] [place] [address] [place] Iron and Iron binding capaci ty panelon 08-08-2022 Iron [Mass/Vol] 35 ug/dL Low 41-186 [facility] Comment on above: Order Comment: Speci men Type: BLOOD SPECIMENOrdering Facility: [facility] Address: [address] [place] [address] Performed By: #### 5 0190-8, 2132-02, 2275-09, 2284-01 ####[facility] LABIA [id number] [address] [place] Iron binding capacity [Mass/Vol] 253 ug/dL Normal 232-386 [facility] Comment on above: Order Comment: Speci men Type: BLOOD SPECIMENOrdering Facility: [facility] Address: [address] [place], [place] [id number] Performed By: #### 5 0190-8, 9, 2275-09, 2284-01 ####[facility] LABIA [id number] [address] [place] Iron/TIBC [Molar ratio] 13.8 % Low 15.0-57.0 [facility] Comment on above: Order Comment: Speci men Type: BLOOD SPECIMENOrdering Facility: [facility] Address: [address] [place] [address] [place] [address] Performed By: #### 5 0190-8, 9, 2275-09, 8 ####[facility] LABCLIA [id number] [place] [address] [place] Vit B12 SerPl-mCncon 08-08- 023 Cobalamin (Vitamin B12) [Mass/Vol] 821 pg/mL Normal 232-1245 [facility] Comment on above: Order Comment: Speci men Type: BLOOD SPECIMENOrdering Facility: [facility] Address: [facility] [place] [address] Performed By: #### 5 0190-8, 2132-02, 2275-09, 2284-01 ####[facility] LABCLIA [id number] [place] [address] [place] BNPon 07-12-2022 Natriuretic peptide B (Bld) [Mass/Vol] 3610.0 pg/mL Critically high <=900.0 [facility] Comment on above: Performed By: #### P T, PTT #### [facility] [address] [place] [address] Dr. Mel Barrientos CBC AUTO DIFFon 07-12-2022 BASO # 0.0 103/ul Normal 0.0-0.1 [facility] Comment on above: Performed By: #### C BC #### [facility] [address] [place] [address] Dr. Mel Barrientos Basophils/100 WBC (Bld) 0.4 % Normal 0.2-2.0 [facility] Comment on above: Performed By: #### C BC #### [facility] [address] [place] [address] Dr. Mel Barrientos EO # 0.1 103/ul Normal 0.0-0.7 [facility] Comment on above: Performed By: #### C BC #### [facility] [address] [place] [address] Dr. Mel Barrientos Eosinophils/100 WBC (Bld) 3.5 % Normal 0.9-7.0 [facility] Comment on above: Performed By: #### C BC #### [facility] [address] [place] [address] Dr. Mel Barrientos Erythrocyte distribution width (RBC) [Ratio] 12.9 % Normal 11.0-15.0 [facility] Comment on above: Performed By: #### C BC #### [facility] [address] [place] [address] Dr. Mel Barrientos Hematocrit (Bld) [Volume fraction] 25.4 % Critically low 42.0-54.0 [facility] Comment on above: Performed By: #### C BC #### [facility] [address] [place] [address] Dr. Mel Barrientos Hemoglobin (Bld) [Mass/Vol] 8.3 g/dL Critically low 14.0-18.0 [facility] Comment on above: Performed By: #### C BC #### [facility] [address] [place] [address] Dr. Mel Barrientos IG # 0.00 10e3/ul Normal 0.00-0.03 [facility] Comment on above: Performed By: #### C BC #### [facility] [address] [place] [address] Dr. Mel Barrientos IG % 0.0 % Normal 0.0-0.5 [facility] Comment on above: Performed By: #### C BC #### [facility] [address] [place] [address] Dr. Mel Barrientos LYMPH # 1.0 103/ul Critically low 1.2-3.8 [facility] Comment on above: Performed By: #### C BC #### [facility] [address] [place] [address] Dr. Mel Barrientos Lymphocytes/100 WBC (Bld) 35.0 % Normal 20.5-60.0 [facility] Comment on above: Performed By: #### C BC #### [facility] [address] [place] [address] Dr. Mel Barrientos MANUAL DIFF REQ NO Normal [facility] Comment on above: Performed By: #### C BC #### [facility] [address] [address] [address] Mel Barrientos MCH (RBC) [Entitic mass] 33.5 pg Normal 25.9-34.0 [facility] Comment on above: Performed By: #### C BC #### [facility] [address] [address] [address] Mel Barrientos MCHC (RBC) [Mass/Vol] 32.7 g/dL Normal 29.9-35.2 [facility] Comment on above: Performed By: #### C BC #### [facility] [address] [address] [address] Mel Barrientos MCV (RBC) [Entitic vol] 102.4 fL Critically high 80.0-94.0 [facility] Comment on above: Performed By: #### C BC #### [facility] [address] [place] [address] Dr. Mel Barrientos MONO # 0.5 103/ul Normal 0.3-0.8 [facility] Comment on above: Performed By: #### C BC #### [facility] [address] [place] [address] Dr. Mel Barrientos Monocytes/100 WBC (Bld) 18.7 % Critically high 1.7-12.0 [facility] Comment on above: Performed By: #### C BC #### [facility] [address] [place] [address] Dr. Mel Barrientos NEUT # 1.2 103/ul Critically low 1.4-6.5 [facility] Comment on above: Performed By: #### C BC #### [facility] [address] [place] [address] Dr. Mel Barrientos Neutrophils/100 WBC (Bld) 42.4 % Critically low 43.0-75.0 [facility] Comment on above: Performed By: #### C BC #### [facility] [address] [place] [address] Dr. Mel Barrientos Platelet mean volume (Bld) [Entitic vol] 8.6 fL Critically low 9.5-13.5 [facility] Comment on above: Performed By: #### C BC #### [facility] [address] [address] [address] Mel Barrientos PLT 208 103/ul Normal 150-450 [facility] Comment on above: Performed By: #### C BC #### [facility] [address] [address] [address] Mel Barrientos RBC 2.48 106/ul Critically low 4.70-6.10 [facility] Comment on above: Performed By: #### C BC #### [facility] [address] [address] [address] Mel Barrientos WBC 2.8 103/ul Critically low 4.0-11.0 [facility] Comment on above: Performed By: #### C BC #### [facility] [address] [place] [address] Dr. Mel Barrientos LIPID PROFILEon 07-12-2022 CHOL-HDL RATIO NORM SEE BELOW Normal [facility] Comment on above: Result Comment: 3.3 - 4.4 LOW RISK 4.4 - 7.1 AVERAGE RISK 7.1 - 11.0 MODERATE RISK >11.0 HIGH RISK Performed By: #### P T, PTT #### [facility] [address] [place] [address] Dr. Mel Barrientos Cholesterol [Mass/Vol] 74 mg/dL Normal <=200 [facility] Comment on above: Performed By: #### P T, PTT #### [facility] [address] [address] [address] Mel Barrientos Cholesterol in HDL [Mass/Vol] 24 mg/dL Critically low 40-60 [facility] Comment on above: Performed By: #### P T, PTT #### [facility] [address] [place] [address] Dr. Mel Barrientos Cholesterol in LDL [Mass/Vol] 36.8 mg/dL Normal [facility] Comment on above: Performed By: #### P T, PTT #### [facility] [address] [place] [address] Dr. Mel Barrientos Cholesterol.total/Cho lesterol in HDL [Mass ratio] 3.1 {ratio} Normal [facility] Comment on above: Performed By: #### P T, PTT #### [facility] [address] [address] [address] Mel Barrientos HDL NORMAL > or = 60 mg/dl - LO W CARDIOVASCULAR RISK <40 mg/dl - HIGH CARDIOVASCULAR RISK Normal [facility] Comment on above: Performed By: #### P T, PTT #### [facility] [address] [address] [address] Mel Barrientos LDL CALC NORMAL SEE BELOW Normal [facility] Comment on above: Result Comment: <100 mg/dl OPTIMAL 100 - 129 mg/dl NEAR OR ABOVE OPTIMAL 130 - 159 mg/dl BORDERLINE HIGH 160 - 189 mg/dl HIGH >190 mg/dl VERY HIGH Performed By: #### P T, PTT #### [facility] [address] [place] [address] Dr. Mel Barrientos Triglyceride [Mass/Vol] 66 mg/dL Normal <=150 [facility] Comment on above: Performed By: #### P T, PTT #### [facility] [address] [place] [address] Dr. Mel Barrientos VLDL CALC 13.2 mg/dL Normal [facility] Comment on above: Performed By: #### P T, PTT #### [facility] [address] [place] [address] Dr. Mel Barrientos PROF 14(COMP METB)on 023 Albumin [Mass/Vol] 2.7 g/dL Critically low 3.4-5.0 [facility] Comment on above: Performed By: #### P T, PTT #### [facility] [address] [place] [address] Dr. Mel Barrientos Albumin/Globulin [Mass ratio] 0.7 {ratio} Normal [facility] Comment on above: Performed By: #### P T, PTT #### [facility] [address] [place] [address] Dr. Mel Barrientos ALP [Catalytic activity/Vol] 128 U/L Critically high 46-116 [facility] Comment on above: Performed By: #### P T, PTT #### [facility] [address] [address] [address] Mel Barrientos ALT [Catalytic activity/Vol] 37 U/L Normal 16-63 [facility] Comment on above: Performed By: #### P T, PTT #### [facility] [address] [address] [address] Mel Barrientos Anion gap [Moles/Vol] 11.6 mmol/L Normal [facility] Comment on above: Performed By: #### P T, PTT #### [facility] [address] [address] [address] Mel Barrientos AST [Catalytic activity/Vol] 24 U/L Normal 15-37 [facility] Comment on above: Performed By: #### P T, PTT #### [facility] [address] [place] [address] Dr. Mel Barrientos Bilirubin [Mass/Vol] 0.3 mg/dL Normal 0.2-1.0 [facility] Comment on above: Performed By: #### P T, PTT #### [facility] [address] [address] [address] Mel Barrientos Calcium [Mass/Vol] 8.4 mg/dL Critically low 8.5-10.1 [facility] Comment on above: Performed By: #### P T, PTT #### [facility] [address] [address] [address] Mel Barrientos Chloride [Moles/Vol] 100 mmol/L Normal 98-107 [facility] Comment on above: Performed By: #### P T, PTT #### [facility] [address] [address] [address] Mel Barrientos CO2 [Moles/Vol] 24.5 mmol/L Normal 21.0-32.0 [facility] Comment on above: Performed By: #### P T, PTT #### [facility] [address] [address] [address] Mel Barrientos Creatinine [Mass/Vol] 0.80 mg/dL Normal 0.70-1.30 [facility] Comment on above: Performed By: #### P T, PTT #### [facility] [address] [address] [address] Mel Barrientos EGFR-AF [place]LANDER >60 Normal >=60 [facility] Comment on above: Performed By: #### P T, PTT #### [facility] [address] [address] [address] Mel Barrientos EGFR-NON AF [place]ER >60 Normal >=60 [facility] Comment on above: Performed By: #### P T, PTT #### [facility] [address] [address] [address] Mel Barrientos Globulin (S) [Mass/Vol] 3.8 g/dL Normal [facility] Comment on above: Performed By: #### P T, PTT #### [facility] [address] [place] [address] Dr. Mel Barrientos Glucose [Mass/Vol] 134 mg/dL Critically high 74-106 T [facility] Comment on above: Performed By: #### P T, PTT #### [facility] [address] [place] [address] Dr. Mel Barrientos Potassium [Moles/Vol] 4.1 mmol/L Normal 3.5-5.1 [facility] Comment on above: Performed By: #### P T, PTT #### [facility] [address] [place] [address] Dr. Mel Barrientos Protein [Mass/Vol] 6.5 g/dL Normal 6.4-8.2 [facility] Comment on above: Performed By: #### P T, PTT #### [facility] [address] [address] [address] Mel Barrientos Sodium [Moles/Vol] 132 mmol/L Critically low 136-145 [facility] Comment on above: Performed By: #### P T, PTT #### [facility] [facility] [address] [address] [address] Mel Barrientos Urea nitrogen [Mass/Vol] 19.0 mg/dL Critically high 7.0-18.0 [facility] Comment on above: Performed By: #### P T, PTT #### [facility] [address] [place] [address] Dr. Mel Barrientos Urea nitrogen/Creatinine [Mass ratio] 23.8 mg/mg Normal [facility] Comment on above: Performed By: #### P T, PTT #### [facility] [address] [place] [address] Dr. Mel Barrientos T4on 07-12-2022 T4 [Mass/Vol] 5.90 ug/dL Normal 4.50-12.10 [facility] Comment on above: Performed By: #### P T, PTT #### [facility] [address] [place] [address] Dr. Mel Barrientos TSHon 07-12-2022 TSH 3.686 uIU/mL Normal 0.358-3.74 0 [facility] Comment on above: Performed By: #### P T, PTT #### [facility] [address] [place] [address] Dr. Mel Barrientos BNPon 07-11-2022 Natriuretic peptide B (Bld) [Mass/Vol] 1694.0 pg/mL Critically high <=900.0 [facility] Comment on above: Performed By: #### L IPID, CMP #### [facility] [address] [place] [address] Dr. Mel Barrientos CARDIAC SUSHILA 3-6on 3 CK [Catalytic activity/Vol] 139 U/L Normal 39-308 [facility] Comment on above: Performed By: #### C MREP #### [facility] [address] [place] [address] Dr. Mel Barrientos CK.MB [Mass/Vol] 1.99 ng/mL Normal <=3.60 [facility] Comment on above: Performed By: #### C MREP #### [facility] [address] [place] [address] Dr. Mel Barrientos HSTROP 6.9 pg/mL Normal 4.0-76.1 [facility] Comment on above: Result Comment: CUT- OFF POINTS HAVE BEEN ESTABLISHED BASED ON THE FOURTH UNIVERSAL DEFINITIONS OF MYOCARDIAL INFARCTION. THE UPPER REFERENCE LIMIT (URL) OF TROPONIN, DEFINED THE 99TH PERCENTILE OF cTnI DISTRIBUTION IN A REFERENCE POPULATION, HAS BEEN CONFIRMED THE DECISION THRESHOLD FOR [place] DIAGNOSIS. Performed By: #### C MREP #### [facility] [address] [place] [address] Dr. Mel Barrientos CK [Catalytic activity/Vol] 127 U/L Normal 39-308 [facility] Comment on above: Performed By: #### P T, PTT #### [facility] [address] [place] [address] Dr. Mel Barrientos CK.MB [Mass/Vol] 2.30 ng/mL Normal <=3.60 [facility] Comment on above: Performed By: #### P T, PTT #### [facility] [address] [place] [address] Dr. Mel Barrientos HSTROP 6.3 pg/mL Normal 4.0-76.1 [facility] Comment on above: Result Comment: CUT- OFF POINTS HAVE BEEN ESTABLISHED BASED ON THE FOURTH UNIVERSAL DEFINITIONS OF MYOCARDIAL INFARCTION. THE UPPER REFERENCE LIMIT (URL) OF TROPONIN, DEFINED THE 99TH PERCENTILE OF cTnI DISTRIBUTION IN A REFERENCE POPULATION, HAS BEEN CONFIRMED THE DECISION THRESHOLD FOR [place] DIAGNOSIS. Performed By: #### P T, PTT #### [facility] [address] [place] [address] Dr. Mel Barrientos CBC AUTO DIFFon 07-11-2022 BASO # 0.0 103/ul Normal 0.0-0.1 [facility] Comment on above: Performed By: #### C BC #### [facility] [address] [place] [address] Dr. Mel Barrientos Basophils/100 WBC (Bld) 0.3 % Normal 0.2-2.0 [facility] Comment on above: Performed By: #### C BC #### [facility] [address] [place] [address] Dr. Mel Barrientos EO # 0.1 103/ul Normal 0.0-0.7 [facility] Comment on above: Performed By: #### C BC #### [facility] [address] [place] [address] Dr. Mel Barrientos Eosinophils/100 WBC (Bld) 3.7 % Normal 0.9-7.0 [facility] Comment on above: Performed By: #### C BC #### [facility] [address] [place] [address] Dr. Mel Barrientos Erythrocyte distribution width (RBC) [Ratio] 13.3 % Normal 11.0-15.0 [facility] Comment on above: Performed By: #### C BC #### [facility] [address] [place] [address] Dr. Mel Barrientos Hematocrit (Bld) [Volume fraction] 31.7 % Critically low 42.0-54.0 [facility] Comment on above: Performed By: #### C BC #### [facility] [address] [place] [address] Dr. Mel Barrientos Hemoglobin (Bld) [Mass/Vol] 9.3 g/dL Critically low 14.0-18.0 [facility] Comment on above: Performed By: #### C BC #### [facility] [address] [place] [address] Dr. Mel Barrientos IG # 0.01 10e3/ul Normal 0.00-0.03 [facility] Comment on above: Performed By: #### C BC #### [facility] [address] [place] [address] Dr. Mel Barrientos IG % 0.3 % Normal 0.0-0.5 [facility] Comment on above: Performed By: #### C BC #### [facility] [address] [place] [address] Dr. Mel Barrientos LYMPH # 1.0 103/ul Critically low 1.2-3.8 [facility] Comment on above: Performed By: #### C BC #### [facility] [address] [place] [address] Dr. Mel Barrientos Lymphocytes/100 WBC (Bld) 26.1 % Normal 20.5-60.0 [facility] Comment on above: Performed By: #### C BC #### [facility] [address] [place] [address] Dr. Mel Barrientos MANUAL DIFF REQ NO Normal [facility] Comment on above: Performed By: #### C BC #### [facility] [address] [place] [address] Dr. Mel Barrientos MCH (RBC) [Entitic mass] 33.9 pg Normal 25.9-34.0 [facility] Comment on above: Performed By: #### C BC #### [facility] [address] [place] [address] Dr. Mel Barrientos MCHC (RBC) [Mass/Vol] 29.3 g/dL Critically low 29.9-35.2 [facility] Comment on above: Performed By: #### C BC #### [facility] [address] [place] [address] Dr. Mel Barrientos MCV (RBC) [Entitic vol] 115.7 fL Critically high 80.0-94.0 [facility] Comment on above: Performed By: #### C BC #### [facility] [address] [place] [address] Dr. Mel Barrientos MONO # 0.5 103/ul Normal 0.3-0.8 [facility] Comment on above: Performed By: #### C BC #### [facility] [address] [place] [address] Dr. Mel Barrientos Monocytes/100 WBC (Bld) 13.3 % Critically high 1.7-12.0 [facility] Comment on above: Performed By: #### C BC #### [facility] [address] [place] [address] Dr. Mel Barrientos NEUT # 2.1 103/ul Normal 1.4-6.5 [facility] Comment on above: Performed By: #### C BC #### [facility] [address] [place] [address] Dr. Mel Barrientos Neutrophils/100 WBC (Bld) 56.3 % Normal 43.0-75.0 [facility] Comment on above: Performed By: #### C BC #### [facility] [address] [place] [address] Dr. Mel Barrientos Platelet mean volume (Bld) [Entitic vol] 9.2 fL Critically low 9.5-13.5 [facility] Comment on above: Performed By: #### C BC #### [facility] [address] [place] [address] Dr. Mel Barrientos PLT 259 103/ul Normal 150-450 [facility] Comment on above: Performed By: #### C BC #### [facility] [address] [place] [address] Dr. Mel Barrientos RBC 2.74 106/ul Critically low 4.70-6.10 [facility] Comment on above: Performed By: #### C BC #### [facility] [address] [place] [address] Dr. Mel Barrientos WBC 3.8 103/ul Critically low 4.0-11.0 [facility] Comment on above: Performed By: #### C BC #### [facility] [address] [place] [address] Dr. Mel Barrientos Covid-19 PCR ([facility])on 06-29 SARS-CoV-2 (COVID-19) RNA NE+probe Ql (Unsp spec) Not detected Normal NOT DETECTED [facility] Comment on above: Result Comment: When [...] for this test is supported by the [employer] of Health and Human Service's declaration that [...] Performed By: #### P T, PTT #### [facility] [address] [place] [address] Dr. Mel Barrientos GLYCOHEMOGLOBIN A1Con 2022 ADA RECOMMENDATION SEE BELOW Normal [facility] Comment on above: Result Comment: ADA RECOMMENDED LIMIT 4.0 - 6.0 ADA THERAPEUTIC TARGET < 7.0 ACTION SUGGESTED > 7.0 Performed By: #### L IPID, CMP #### [facility] [address] [place] [address] Dr. Mel Barrientos Glucose [Mass/Vol] 128 mg/dL Normal [facility] Comment on above: Performed By: #### L IPID, CMP #### [facility] [address] [place] [address] Dr. Mel Barrientos HbA1c (Bld) [Mass fraction] 6.1 % Normal 4.5-6.2 [facility] Comment on above: Performed By: #### L IPID, CMP #### [facility] [address] [place] [address] Dr. Mel Barrientos LIPASEon 07-11-2022 Lipase [Catalytic activity/Vol] 10.0 U/L Critically low 73.0-393.0 [facility] Comment on above: Performed By: #### L IPID, CMP #### [facility] [address] [place] [address] Dr. Mel Barirentos PROF 14(COMP METB)on 023 Albumin [Mass/Vol] 3.1 g/dL Critically low 3.4-5.0 [facility] Comment on above: Performed By: #### L IPID, CMP #### [facility] [address] [place] [address] Dr. Mel Barrientos Albumin/Globulin [Mass ratio] 0.7 {ratio} Normal [facility] Comment on above: Performed By: #### L IPID, CMP #### [facility] [address] [place] [address] Dr. Mel Barrientos ALP [Catalytic activity/Vol] 143 U/L Critically high 46-116 [facility] Comment on above: Performed By: #### L IPID, CMP #### [facility] [address] [place] [address] Dr. Mel Barrientos ALT [Catalytic activity/Vol] 52 U/L Normal 16-63 [facility] Comment on above: Performed By: #### L IPID, CMP #### [facility] [address] [place] [address] Dr. Mel Barrientos Anion gap [Moles/Vol] 12.7 mmol/L Normal [facility] Comment on above: Performed By: #### L IPID, CMP #### [facility] [address] [place] [address] Dr. Mel Barrientos AST [Catalytic activity/Vol] 31 U/L Normal 15-37 [facility] Comment on above: Performed By: #### L IPID, CMP #### [facility] [address] [place] [address] Dr. Mel Barrientos Bilirubin [Mass/Vol] 0.3 mg/dL Normal 0.2-1.0 [facility] Comment on above: Performed By: #### L IPID, CMP #### [facility] [address] [place] [address] Dr. Mel Barrientos Calcium [Mass/Vol] 8.6 mg/dL Normal 8.5-10.1 [facility] Comment on above: Performed By: #### L IPID, CMP #### [facility] [address] [place] [address] Dr. Mel Barrientos Chloride [Moles/Vol] 103 mmol/L Normal 98-107 [facility] Comment on above: Performed By: #### L IPID, CMP #### [facility] [address] [place] [address] Dr. Mel Barrientos CO2 [Moles/Vol] 24.7 mmol/L Normal 21.0-32.0 [facility] Comment on above: Performed By: #### L IPID, CMP #### [facility] [address] [place] [address] Dr. Mel Barrientos Creatinine [Mass/Vol] 0.90 mg/dL Normal 0.70-1.30 [facility] Comment on above: Performed By: #### L IPID, CMP #### [facility] [address] [address] [address] Mel Barrientos EGFR-AF [place]LANDER >60 Normal >=60 [facility] Comment on above: Performed By: #### L IPID, CMP #### [facility] [address] [place] [address] Dr. Mel Barrientos EGFR-NON AF [place]ER >60 Normal >=60 [facility] Comment on above: Performed By: #### L IPID, CMP #### [facility] [address] [address] [address] Mel Barrientos Globulin (S) [Mass/Vol] 4.2 g/dL Normal [facility] Comment on above: Performed By: #### L IPID, CMP #### [facility] [address] [place] [address] Dr. Mel Barrientos Glucose [Mass/Vol] 204 mg/dL Critically high 74-106 [facility] Comment on above: Performed By: #### L IPID, CMP #### [facility] [address] [place] [address] Dr. Mel Barrientos Potassium [Moles/Vol] 4.4 mmol/L Normal 3.5-5.1 [facility] Comment on above: Performed By: #### L IPID, CMP #### [facility] [address] [place] [address] Dr. Mel Barrientos Protein [Mass/Vol] 7.3 g/dL Normal 6.4-8.2 [facility] Comment on above: Performed By: #### L IPID, CMP #### [facility] [address] [place] [address] Dr. Mel Barrientos Sodium [Moles/Vol] 136 mmol/L Normal 136-145 [facility] Comment on above: Performed By: #### L IPID, CMP #### [facility] [address] [place] [address] Dr. Mel Barrientos Urea nitrogen [Mass/Vol] 20.0 mg/dL Critically high 7.0-18.0 [facility] Comment on above: Performed By: #### L IPID, CMP #### [facility] [address] [place] [address] Dr. Mel Barrientos Urea nitrogen/Creatinine [Mass ratio] 22.2 mg/mg Normal [facility] Comment on above: Performed By: #### L IPID, CMP #### [facility] [address] [place] [address] Dr. Mel Barrientos PROTIMEon 07-11-2022 INR Coag (PPP) [Relative time] 1.14 {INR} Normal [facility] Comment on above: Performed By: #### P T, PTT #### [facility] [address] [place] [address] Dr. Mel Barrientos INR GUIDELINES SEE BELOW Normal [facility] Comment on above: Result Comment: JESSIKA RED INR: 2.0 - 3.0 CONDITIONS NOT LISTED BELOW 2.5 - 3.5 FOR PROSTHETIC HEART VALVE REPLACEMENT 2.5 - 3.5 RECURRENT THROMBOSIS Performed By: #### P T, PTT #### [facility] [address] [place] [address] Dr. Mel Barrientos PT Coag (PPP) [Time] 12.0 s Critically high 9.0-11.6 [facility] Comment on above: Performed By: #### P T, PTT #### [facility] [address] [place] [address] Dr. Mel Barrientos PTTon 07-11-2022 aPTT Coag (Bld) [Time] 30.8 s Normal 22.3-36.2 [facility] Comment on above: Performed By: #### P T, PTT #### [facility] [address] [place] [address] Dr. Mel Barrientos TROPONIN, HIGH SENSITIVITYon 07-11-2022 HSTROP 6.6 pg/mL Normal 4.0-76.1 [facility] Comment on above: Result Comment: CUT- OFF POINTS HAVE BEEN ESTABLISHED BASED ON THE FOURTH UNIVERSAL DEFINITIONS OF MYOCARDIAL INFARCTION. THE UPPER REFERENCE LIMIT (URL) OF TROPONIN, DEFINED THE 99TH PERCENTILE OF cTnI DISTRIBUTION IN A REFERENCE POPULATION, HAS BEEN CONFIRMED THE DECISION THRESHOLD FOR [place] DIAGNOSIS. Performed By: #### L IPID, CMP #### [facility] [address] [place] [address] [address] [address] Mel Barrientos XR CHEST 1 Von [...] by: MAR MOE Date: 2022-07-11 14:05 Normal [facility] CNPNon 07-07-2022 CNPN Normal [facility] CBC W Auto Differential pane l (Bld)on 07-03-2022 Basophils (Bld) [#/Vol] 10*3/uL Normal <0.11 [facility] Comment on above: Order Comment: Speci men Type: BLOOD SPECIMENOrdering Facility: [facility] Address: [address] [place] [address] Performed By: #### 5 7021-8 ####[facility] [id number] [place] [address] Basophils/100 WBC (Bld) 0.6 % Normal [facility] Comment on above: Order Comment: Speci men Type: BLOOD SPECIMENOrdering Facility: [facility] Address: [address] [place] [address] Performed By: #### 5 7021-8 ####[facility]CLIA [id number] [place] [address] Differential cell count method Nom (Bld) Auto Normal [facility] Comment on above: Order Comment: Speci men Type: BLOOD SPECIMENOrdering Facility: [facility] Address: [address] [place] [address] Performed By: #### 5 7021-8 ####[facility]CLIA [id number] [place] [address] Eosinophils (Bld) [#/Vol] 0.19 10*3/uL Normal <0.46 [facility] Comment on above: Order Comment: Speci men Type: BLOOD SPECIMENOrdering Facility: [facility] Address: [address] [address] Performed By: #### 5 7021-8 ####[facility]CLIA [id number] [place] [address] Eosinophils/100 WBC (Bld) 5.7 % Normal [facility] Comment on above: Order Comment: Speci men Type: BLOOD SPECIMENOrdering Facility: [facility] Address: [address] [address] Performed By: #### 5 7021-8 ####[facility]CLIA [id number] [place] [address] Erythrocyte distribution width (RBC) [Ratio] 13.3 % Normal 11.5-15.0 [facility] Comment on above: Order Comment: Speci men Type: BLOOD SPECIMENOrdering Facility: [facility] Address: [address] [address] Performed By: #### 5 7021-8 ####[facility]CLIA [id number] [place] [address] Hematocrit (Bld) [Volume fraction] 27.5 % Low 39.0-51.0 [facility] Comment on above: Order Comment: Speci men Type: BLOOD SPECIMENOrdering Facility: [facility] Address: [address] [address] Performed By: #### 5 7021-8 ####[facility]CLIA [id number] [place] [address] Hemoglobin (Bld) [Mass/Vol] 8.7 g/dL Low 13.0-17.0 [facility] Comment on above: Order Comment: Speci men Type: BLOOD SPECIMENOrdering Facility: [facility] Address: [address] [place] [address] Performed By: #### 5 7021-8 ####[facility]CLIA [id number] [place] [address] Immature granulocytes (Bld) [#/Vol] 10*3/uL Normal <0.10 [facility] Comment on above: Order Comment: Speci men Type: BLOOD SPECIMENOrdering Facility: [facility] Address: [address] [place] [address] Performed By: #### 5 7021-8 ####[facility]CLIA [id number] [place] [address] Immature granulocytes/100 WBC (Bld) 0.3 % Normal [facility] Comment on above: Order Comment: Speci men Type: BLOOD SPECIMENOrdering Facility: [facility] Address: [address] [place] [address] Performed By: #### 5 7021-8 ####[facility]CLIA [id number] [place] [address] Lymphocytes (Bld) [#/Vol] 0.83 10*3/uL Low 1.00-4.00 [facility] Comment on above: Order Comment: Speci men Type: BLOOD SPECIMENOrdering Facility: [facility] Address: [address] [place] [address] Performed By: #### 5 7021-8 ####[facility] LABCLIA [id number] [place] [address] Lymphocytes/100 WBC (Bld) 24.9 % Normal [facility] Comment on above: Order Comment: Speci men Type: BLOOD SPECIMENOrdering Facility: [facility] Address: [address] [place] [address] Performed By: #### 5 7021-8 ####[facility] LABIA [id number] [place] [address] MCH (RBC) [Entitic mass] 34.1 pg High 26.0-34.0 [facility] Comment on above: Order Comment: Speci men Type: BLOOD SPECIMENOrdering Facility: [facility] Address: [address] [place] [address] Performed By: #### 5 7021-8 ####[facility] LABCLIA [id number] [place] [address] MCHC (RBC) [Mass/Vol] 31.6 g/dL Normal 30.5-36.0 [facility] Comment on above: Order Comment: Speci men Type: BLOOD SPECIMENOrdering Facility: [facility] Address: [address] [place] [address] Performed By: #### 5 7021-8 ####[facility] LABCLIA [id number] [place] [address] MCV (RBC) [Entitic vol] 107.8 fL High 80.0-100.0 [facility] Comment on above: Order Comment: Speci men Type: BLOOD SPECIMENOrdering Facility: [facility] Address: [address] [place] [address] Performed By: #### 5 7021-8 ####[facility] LABCLIA [id number] [place] [address] Monocytes (Bld) [#/Vol] 0.41 10*3/uL Normal <0.87 [facility] Comment on above: Order Comment: Speci men Type: BLOOD SPECIMENOrdering Facility: [facility] Address: [address] [place] [address] Performed By: #### 5 7021-8 ####[facility] LABCLIA [id number] [place] [address] Monocytes/100 WBC (Bld) 12.3 % Normal [facility] Comment on above: Order Comment: Speci men Type: BLOOD SPECIMENOrdering Facility: [facility] Address: [address] [place] [address] Performed By: #### 5 7021-8 ####[facility] LABCLIA [id number] [place] [address] Neutrophils (Bld) [#/Vol] 1.88 10*3/uL Normal 1.45-7.50 [facility] Comment on above: Order Comment: Speci men Type: BLOOD SPECIMENOrdering Facility: [facility] Address: [address] [place] [address] Performed By: #### 5 7021-8 ####[facility] LABCLIA [id number] [place] [address] Neutrophils/100 WBC (Bld) 56.2 % Normal [facility] Comment on above: Order Comment: Speci men Type: BLOOD SPECIMENOrdering Facility: [facility] Address: [address] [place] [address] Performed By: #### 5 7021-8 ####[facility] LABCLIA [id number] [place] [address] Nucleated RBC (Bld) [#/Vol] 10*3/uL Normal <0.01 [facility] Comment on above: Order Comment: Speci men Type: BLOOD SPECIMENOrdering Facility: [facility] Address: [address] [place] [address] Performed By: #### 5 7021-8 ####[facility] LABCLIA [id number] [place] [address] Nucleated RBC/100 WBC (Bld) [Ratio] 0.0 /100 WBC Normal [facility] Comment on above: Order Comment: Speci men Type: BLOOD SPECIMENOrdering Facility: [facility] Address: [address] [place] [address] Performed By: #### 5 7021-8 ####[facility] LABIA [id number] [place] [address] Platelet mean volume (Bld) [Entitic vol] 8.8 fL Low 9.0-12.7 [facility] Comment on above: Order Comment: Speci men Type: BLOOD SPECIMENOrdering Facility: [facility] Address: [address] [address] Performed By: #### 5 7021-8 ####[facility] LABCLIA [id number] [place] [address] Platelets (Bld) [#/Vol] 231 10*3/uL Normal 150-400 [facility] Comment on above: Order Comment: Speci men Type: BLOOD SPECIMENOrdering Facility: [facility] Address: [address] [place] [address] Performed By: #### 5 7021-8 ####[facility] LABIA [id number] [place] [address] RBC (Bld) [#/Vol] 2.55 10*6/uL Low 4.20-6.00 [facility] Comment on above: Order Comment: Speci men Type: BLOOD SPECIMENOrdering Facility: [facility] Address: [address] [address] Performed By: #### 5 7021-8 ####[facility] LABIA [id number] [place] [address] WBC (Bld) [#/Vol] 3.34 10*3/uL Low 3.70-11.00 [facility] Comment on above: Order Comment: Speci men Type: BLOOD SPECIMENOrdering Facility: [facility] Address: [address] [place] [address] Performed By: #### 5 7021-8 ####[facility] LABIA [id number] [place] [address] CNNURSEon 07-03-2022 CNNURSE Normal [facility] CNOVSPon 07-03-2022 CNOVSP Normal [facility] CT ABD/PEL W IVCONon 023 CT ABD/PEL W IVCON Normal [facility] CT CHEST W IVCONon 3 CT CHEST W IVCON Normal [facility] Cancer Ag19-9 SerPl-aCncon 0 1-05-2023 Cancer Ag 19-9 Qn 9.0 [arb'U]/mL Normal <36.0 [facility] Comment on above: Order Comment: Speci men Type: BLOOD SPECIMENOrdering Facility: [facility] Address: [address] [address] Result Comment: [facility] er antigen 19-9 test is used as an aid in monitoring response to treatment or recurrence in patients with established pancreatic, hepatobiliary, or gastrointestinal malignancies. Clinical correlation is required.The CA 19-9 Antigen test was performed using the [employer] DXI paramagnetic particle chemiluminescent immunoassay method. Results obtained with different assay methods or kits cannot be used interchangeably. Performed By: #### 2 4108-3 ####[facility] LABCLIA [id number] [facility] [id number] [place] [address] OF [facility] Comprehensive metabolic 2000 panelon 07-03-2022 Albumin [Mass/Vol] 3.5 g/dL Low 3.9-4.9 [facility] Comment on above: Order Comment: Speci men Type: BLOOD SPECIMENOrdering Facility: [facility] Address: [address] [address] Performed By: #### 2 4323-8 ####[facility] LABCLIA [id number] [place] [address] ALP [Catalytic activity/Vol] 140 U/L High 38-113 [facility] Comment on above: Order Comment: Speci men Type: BLOOD SPECIMENOrdering Facility: [facility] Address: [address] [address] Performed By: #### 2 4323-8 ####[facility] LABCLIA [id number] [place] [address] ALT [Catalytic activity/Vol] 32 U/L Normal 10-54 [facility] Comment on above: Order Comment: Speci men Type: BLOOD SPECIMENOrdering Facility: [facility] Address: [address] [address] Performed By: #### 2 4323-8 ####[facility] LABCLIA [id number] [place] [address] Anion gap [Moles/Vol] 7 mmol/L Low 9-18 [facility] Comment on above: Order Comment: Speci men Type: BLOOD SPECIMENOrdering Facility: [facility] Address: [address] [place] [address] Performed By: #### 2 4323-8 ####[facility] LABCLIA [id number] [place] [address] AST [Catalytic activity/Vol] 27 U/L Normal 14-40 [facility] Comment on above: Order Comment: Speci men Type: BLOOD SPECIMENOrdering Facility: [facility] Address: [address] [place] [address] Performed By: #### 2 4323-8 ####[facility] LABCLIA [id number] [place] [address] Bilirubin [Mass/Vol] 0.2 mg/dL Normal 0.2-1.3 [facility] Comment on above: Order Comment: Speci men Type: BLOOD SPECIMENOrdering Facility: [facility] Address: [address] [place] [address] Performed By: #### 2 4323-8 ####[facility] LABCLIA [id number] [place] [address] Calcium [Mass/Vol] 8.5 mg/dL Normal 8.5-10.2 [facility] Comment on above: Order Comment: Speci men Type: BLOOD SPECIMENOrdering Facility: [facility] Address: [address] [place] [address] Performed By: #### 2 4323-8 ####[facility] LABCLIA [id number] [place] [address] Chloride [Moles/Vol] 102 mmol/L Normal 97-105 [facility] Comment on above: Order Comment: Speci men Type: BLOOD SPECIMENOrdering Facility: [facility] Address: [address] [address] Performed By: #### 2 4323-8 ####[facility] LABCLIA [id number] [place] [address] CO2 [Moles/Vol] 21 mmol/L Low 22-30 [facility] Comment on above: Order Comment: Speci men Type: BLOOD SPECIMENOrdering Facility: [facility] Address: [address] [address] Performed By: #### 2 4323-8 ####[facility] LABCLIA [id number] [place] [address] Creatinine [Mass/Vol] 0.70 mg/dL Low 0.73-1.22 [facility] Comment on above: Order Comment: Speci men Type: BLOOD SPECIMENOrdering Facility: [facility] Address: [address] [place] [address] Performed By: #### 2 4323-8 ####[facility] LABCLIA [id number] [place] [address] ESTIMATED GLOMERULAR FILTRATION RATE 102 mL/min/1.73m??? Normal >=60 [facility] Comment on above: Order Comment: Speci men Type: BLOOD SPECIMENOrdering Facility: [facility] Address: [address] [place] [address] Result Comment: Megan mated Glomerular Filtration Rate [...] actual GFR. Performed By: #### 2 4323-8 ####[facility] LABCLIA [id number] [place] [address] Glucose [Mass/Vol] 292 mg/dL High 74-99 [facility] Comment on above: Order Comment: Speci men Type: BLOOD SPECIMENOrdering Facility: [facility] Address: [address] [place], [place] [address] Result Comment: The [place] [employer] (ADA) provides guidance for cutoff [...] Standards of Medical Care in Diabetes 2016, [place] [employer]. Diabetes Care. 2016.39(Suppl 1). Performed By: #### 2 4323-8 ####[facility] LABCLIA [id number] [place] [address] Potassium [Moles/Vol] 4.4 mmol/L Normal 3.7-5.1 [facility] Comment on above: Order Comment: Speci men Type: BLOOD SPECIMENOrdering Facility: [facility] Address: [address] [place] [address] Performed By: #### 2 4323-8 ####[facility] LABCLIA [id number] [place] [address] Protein [Mass/Vol] 6.3 g/dL Normal 6.3-8.0 [facility] Comment on above: Order Comment: Speci men Type: BLOOD SPECIMENOrdering Facility: [facility] Address: [address] [phone] Performed By: #### 2 4323-8 ####[facility] LABCLIA [id number] [place] [address] Sodium [Moles/Vol] 130 mmol/L Low 136-144 [facility] Comment on above: Order Comment: Speci men Type: BLOOD SPECIMENOrdering Facility: [facility] Address: [address] [address] Performed By: #### 2 4323-8 ####[facility] LABCLIA [id number] [place] [address] Urea nitrogen [Mass/Vol] 23 mg/dL Normal 9-24 [facility] Comment on above: Order Comment: Speci men Type: BLOOD SPECIMENOrdering Facility: [facility] Address: [address] [address] Performed By: #### 2 4323-8 ####[facility] LABCLIA [id number] [place] [address] Ferritin SerPl-mCncon 2022 Ferritin [Mass/Vol] 243.0 ng/mL Normal 30.3-565.7 [facility] Comment on above: Order Comment: Speci men Type: BLOOD SPECIMENOrdering Facility: [facility] Address: [address] [place] [address] Performed By: #### 5 0190-8, 2276-4, 2131-9, 2283-8 ####[facility] LABIA [id number] [place] [address] [place] Folate SerPl-mCncon 07-03-19 23 Folate [Mass/Vol] 4.1 ng/mL Low >4.7 [facility] Comment on above: Order Comment: Speci men Type: BLOOD SPECIMENOrdering Facility: [facility] Address: [address] [address] Performed By: #### 5 0190-8, 2276-4, 9, 2283-8 ####[facility] LABIA [id number] [place] [address] [place] Iron and Iron binding capaci ty panelon 07-03-2022 Iron [Mass/Vol] 30 ug/dL Low 41-186 [facility] Comment on above: Order Comment: Speci men Type: BLOOD SPECIMENOrdering Facility: [facility] Address: [address] [phone] Performed By: #### 5 0190-8, 2275-09, 2132-02, 2284-01 ####[facility] LABCLIA [id number] [place] [address] [place] Iron binding capacity [Mass/Vol] 212 ug/dL Low 232-386 [facility] Comment on above: Order Comment: Speci men Type: BLOOD SPECIMENOrdering Facility: [facility] Address: [address] Performed By: #### 5 0190-8, 2275-09, 2132-02, 2284-01 ####[facility] LABCLIA [id number] [place] [address] [place] Iron/TIBC [Molar ratio] 14.2 % Low 15.0-57.0 [facility] Comment on above: Order Comment: Speci men Type: BLOOD SPECIMENOrdering Facility: [facility] Address: [address] [place], [place] [address] Performed By: #### 5 0190-8, 2275-09, 2132-02, 2284-01 ####[facility] LABIA [id number] [address] [place] Vit B12 [facility] -05-2 023 Cobalamin (Vitamin B12) [Mass/Vol] 465 pg/mL Normal 232-1245 [facility] Comment on above: Order Comment: Speci men Type: BLOOD SPECIMENOrdering Facility: [facility] Address: [address] [phone] Performed By: #### 5 0190-8, 2275-09, 2132-02, 2284-01 ####[facility] LABIA [id number] [place] [address] [place] CBC W Auto Differential pane l (Bld)on 06-06-2022 Anisocytosis Ql (Bld) Present Normal [facility] Comment on above: Order Comment: Speci men Type: BLOOD SPECIMENOrdering Facility: [facility] Address: [address] [place] [address] Performed By: #### 5 7021-8 ####[facility] LABCLIA [id number] [address] LABCLIA [id number] [place] [address] [place] Basophils (Bld) [#/Vol] 10*3/uL Normal <0.11 [facility] Comment on above: Order Comment: Speci men Type: BLOOD SPECIMENOrdering Facility: [facility] Address: [address] [place] [address] Performed By: #### 5 7021-8 ####[facility] LABCLIA [id number] [address] LABCLIA [id number] [place] [address] [place] Basophils/100 WBC (Bld) 0.7 % Normal [facility] Comment on above: Order Comment: Speci men Type: BLOOD SPECIMENOrdering Facility: [facility] Address: [address] [place] [address] Performed By: #### 5 7021-8 ####[facility] LABCLIA [id number] [address] LABCLIA [id number] [place] [address] [place] CBC W Differential panel, method unspecified (Bld) Done Normal [facility] Comment on above: Order Comment: Speci men Type: BLOOD SPECIMENOrdering Facility: [facility] Address: [address] [place] [address] Performed By: #### 5 7021-8 ####[facility] LABCLIA [id number] [address] [address] LABCLIA [id number] [place] [address] [place] Differential cell count method Nom (Bld) Auto Normal [facility] Comment on above: Order Comment: Speci men Type: BLOOD SPECIMENOrdering Facility: [facility] Address: [address] [place] [address] Performed By: #### 5 7021-8 ####[facility] LABCLIA [id number] [address] LABCLIA [id number] [place] [address] [place] Eosinophils (Bld) [#/Vol] 0.16 10*3/uL Normal <0.46 [facility] Comment on above: Order Comment: Speci men Type: BLOOD SPECIMENOrdering Facility: [facility] Address: [address] [place] [address] Performed By: #### 5 7021-8 ####[facility] LABCLIA [id number] [address] LABCLIA [id number] [place] [address] [place] Eosinophils/100 WBC (Bld) 5.3 % Normal [facility] Comment on above: Order Comment: Speci men Type: BLOOD SPECIMENOrdering Facility: [facility] Address: [address] [place], [place] [address] Performed By: #### 5 7021-8 ####[facility] LABCLIA [id number] [address] LABCLIA [id number] [place] [address] [place] Erythrocyte distribution width (RBC) [Ratio] 15.1 % High 11.5-15.0 [facility] Comment on above: Order Comment: Speci men Type: BLOOD SPECIMENOrdering Facility: [facility] Address: [address] [address] Performed By: #### 5 7021-8 ####[facility] LABCLIA [id number] [address] LABCLIA [id number] [place] [address] [place] Hematocrit (Bld) [Volume fraction] 28.5 % Low 39.0-51.0 [facility] Comment on above: Order Comment: Speci men Type: BLOOD SPECIMENOrdering Facility: [facility] Address: [address] [place] [address] Performed By: #### 5 7021-8 ####[facility] LABCLIA [id number] [address] LABCLIA [id number] [place] [address] [place] Hemoglobin (Bld) [Mass/Vol] 9.1 g/dL Low 13.0-17.0 [facility] Comment on above: Order Comment: Speci men Type: BLOOD SPECIMENOrdering Facility: [facility] Address: [address] [place] [address] Performed By: #### 5 7021-8 ####[facility] LABCLIA [id number] [address] LABCLIA [id number] [place] [address] [place] Immature granulocytes (Bld) [#/Vol] 10*3/uL Normal <0.10 [facility] Comment on above: Order Comment: Speci men Type: BLOOD SPECIMENOrdering Facility: [facility] Address: [address] [place] [address] Performed By: #### 5 7021-8 ####[facility] LABCLIA [id number] [address] LABCLIA [id number] [place] [address] [place] Immature granulocytes/100 WBC (Bld) 0.3 % Normal [facility] Comment on above: Order Comment: Speci men Type: BLOOD SPECIMENOrdering Facility: [facility] Address: [address] [place] [address] Performed By: #### 5 7021-8 ####[facility] LABCLIA [id number] [address] LABCLIA [id number] [place] [address] [place] Lymphocytes (Bld) [#/Vol] 1.20 10*3/uL Normal 1.00-4.00 [facility] Comment on above: Order Comment: Speci men Type: BLOOD SPECIMENOrdering Facility: [facility] Address: [address] [place] [address] Performed By: #### 5 7021-8 ####[facility] LABCLIA [id number] [address] LABCLIA [id number] [address] [place] Lymphocytes/100 WBC (Bld) 39.9 % Normal [facility] Comment on above: Order Comment: Speci men Type: BLOOD SPECIMENOrdering Facility: [facility] Address: [address] [place], [place] [address] Performed By: #### 5 7021-8 ####[facility] LABCLIA [id number] [address] LABCLIA [id number] [place] [address] [place] MCH (RBC) [Entitic mass] 35.3 pg High 26.0-34.0 [facility] Comment on above: Order Comment: Speci men Type: BLOOD SPECIMENOrdering Facility: [facility] Address: [address] [address] Performed By: #### 5 7021-8 ####[facility] LABCLIA [id number] [address] LABCLIA [id number] [place] [address] [place] MCHC (RBC) [Mass/Vol] 31.9 g/dL Normal 30.5-36.0 [facility] Comment on above: Order Comment: Speci men Type: BLOOD SPECIMENOrdering Facility: [facility] Address: [address] [address] Performed By: #### 5 7021-8 ####[facility] LABCLIA [id number] [address] LABCLIA [id number] [place] [address] [place] MCV (RBC) [Entitic vol] 110.5 fL High 80.0-100.0 [facility] Comment on above: Order Comment: Speci men Type: BLOOD SPECIMENOrdering Facility: [facility] Address: [address] [place] [address] Performed By: #### 5 7021-8 ####[facility] LABCLIA [id number] [address] LABCLIA [id number] [place] [address] [place] Monocytes (Bld) [#/Vol] 0.42 10*3/uL Normal <0.87 [facility] Comment on above: Order Comment: Speci men Type: BLOOD SPECIMENOrdering Facility: [facility] Address: [address] [place] [address] Performed By: #### 5 7021-8 ####[facility] LABCLIA [id number] [address] LABCLIA [id number] [place] [address] [place] Monocytes/100 WBC (Bld) 14.0 % Normal [facility] Comment on above: Order Comment: Speci men Type: BLOOD SPECIMENOrdering Facility: [facility] Address: [address] [place] [address] Performed By: #### 5 7021-8 ####[facility] LABCLIA [id number] [address] LABCLIA [id number] [place] [address] [place] Neutrophils (Bld) [#/Vol] 1.20 10*3/uL Low 1.45-7.50 [facility] Comment on above: Order Comment: Speci men Type: BLOOD SPECIMENOrdering Facility: [facility] Address: [address] [place], [place] [address] Performed By: #### 5 7021-8 ####[facility] LABCLIA [id number] [address] LABCLIA [id number] [place] [address] [place] Neutrophils/100 WBC (Bld) 39.8 % Normal [facility] Comment on above: Order Comment: Speci men Type: BLOOD SPECIMENOrdering Facility: [facility] Address: [address] [place] [address] Result Comment: Revi ewed Performed By: #### 5 7021-8 ####[facility] LABCLIA [id number] [address] LABCLIA [id number] [place] [address] [place] Nucleated RBC (Bld) [#/Vol] 10*3/uL Normal <0.01 [facility] Comment on above: Order Comment: Speci men Type: BLOOD SPECIMENOrdering Facility: [facility] Address: [address] Performed By: #### 5 7021-8 ####[facility] LABCLIA [id number] [address] LABCLIA [id number] [place] [address] [place] Nucleated RBC/100 WBC (Bld) [Ratio] 0.0 /100 WBC Normal [facility] Comment on above: Order Comment: Speci men Type: BLOOD SPECIMENOrdering Facility: [facility] Address: [address] Performed By: #### 5 7021-8 ####[facility] LABCLIA [id number] [address] LABCLIA [id number] [place] [address] [place] Ovalocytes LM Ql (Bld) Few Normal [facility] Comment on above: Order Comment: Speci men Type: BLOOD SPECIMENOrdering Facility: [facility] Address: [address] Performed By: #### 5 7021-8 ####[facility] LABCLIA [id number] [address] LABCLIA [id number] [place] [address] [place] Platelet mean volume (Bld) [Entitic vol] 9.1 fL Normal 9.0-12.7 [facility] Comment on above: Order Comment: Speci men Type: BLOOD SPECIMENOrdering Facility: [facility] Address: [address] Performed By: #### 5 7021-8 ####[facility] LABCLIA [id number] [address] LABCLIA [id number] [place] [address] [place] Platelets (Bld) [#/Vol] 234 10*3/uL Normal 150-400 [facility] Comment on above: Order Comment: Speci men Type: BLOOD SPECIMENOrdering Facility: [facility] Address: [address] [place] [address] Performed By: #### 5 7021-8 ####[facility] LABCLIA [id number] [address] LABCLIA [id number] [place] [address] [place] Platelets Estimate (Bld) [#/Vol] Adequate Normal [facility] Comment on above: Order Comment: Speci men Type: BLOOD SPECIMENOrdering Facility: [facility] Address: [address] [place] [address] Performed By: #### 5 7021-8 ####[facility] LABCLIA [id number] [address] LABCLIA [id number] [place] [address] [place] Polychromasia LM Ql (Bld) Slight Normal [facility] Comment on above: Order Comment: Speci men Type: BLOOD SPECIMENOrdering Facility: [facility] Address: [address] [place], [place] [address] Performed By: #### 5 7021-8 ####[facility] LABCLIA [id number] [address] LABCLIA [id number] [place] [address] [place] RBC (Bld) [#/Vol] 2.58 10*6/uL Low 4.20-6.00 [facility] Comment on above: Order Comment: Speci men Type: BLOOD SPECIMENOrdering Facility: [facility] Address: [address] [place], [place] [id number] Performed By: #### 5 7021-8 ####[facility] LABCLIA [id number] [place] [id number] LABCLIA [id number] [place] [address] [place] RED CELL MORPH Reviewed: see result s of individual morphologies Normal [facility] Comment on above: Order Comment: Speci men Type: BLOOD SPECIMENOrdering Facility: [facility] Address: [address] [address] Performed By: #### 5 7021-8 ####[facility] LABCLIA [id number] [address] LABCLIA [id number] [place] [address] [place] WBC (Bld) [#/Vol] 3.01 10*3/uL Low 3.70-11.00 [facility] Comment on above: Order Comment: Speci men Type: BLOOD SPECIMENOrdering Facility: [facility] Address: [address] [address] Performed By: #### 5 7021-8 ####[facility] LABCLIA [id number] [address] LABCLIA [id number] [place] [address] [place] CNNURSEon 06-06-2022 CNNURSE Normal [facility] CNOVSPon 06-06-2022 CNOVSP Normal [facility] Comprehensive metabolic 2000 panelon 06-06-2022 Albumin [Mass/Vol] 3.5 g/dL Low 3.9-4.9 [facility] Comment on above: Order Comment: Speci men Type: BLOOD SPECIMENOrdering Facility: [facility] Address: [address] [place], [place] [address] Performed By: #### 2 4323-8 ####[facility] LABCLIA [id number] [place] [address] ALP [Catalytic activity/Vol] 148 U/L High 38-113 [facility] Comment on above: Order Comment: Speci men Type: BLOOD SPECIMENOrdering Facility: [facility] Address: [address] [place] [address] Performed By: #### 2 4323-8 ####[facility] LABCLIA [id number] [place] [address] ALT [Catalytic activity/Vol] 43 U/L Normal 10-54 [facility] Comment on above: Order Comment: Speci men Type: BLOOD SPECIMENOrdering Facility: [facility] Address: [address] [place] [address] Performed By: #### 2 4323-8 ####[facility] LABCLIA [id number] [place] [address] Anion gap [Moles/Vol] 8 mmol/L Low 9-18 [facility] Comment on above: Order Comment: Speci men Type: BLOOD SPECIMENOrdering Facility: [facility] Address: [address] [place] [address] Performed By: #### 2 4323-8 ####[facility] LABCLIA [id number] [place] [address] AST [Catalytic activity/Vol] 37 U/L Normal 14-40 [facility] Comment on above: Order Comment: Speci men Type: BLOOD SPECIMENOrdering Facility: [facility] Address: [address] [place] [address] Performed By: #### 2 4323-8 ####[facility] LABCLIA [id number] [place] [address] Bilirubin [Mass/Vol] 0.4 mg/dL Normal 0.2-1.3 [facility] Comment on above: Order Comment: Speci men Type: BLOOD SPECIMENOrdering Facility: [facility] Address: [address] [place] [address] Performed By: #### 2 4323-8 ####[facility] LABCLIA [id number] [place] [address] Calcium [Mass/Vol] 8.8 mg/dL Normal 8.5-10.2 [facility] Comment on above: Order Comment: Speci men Type: BLOOD SPECIMENOrdering Facility: [facility] Address: [address] [place] [address] Performed By: #### 2 4323-8 ####[facility] LABCLIA [id number] [place] [address] Chloride [Moles/Vol] 106 mmol/L High 97-105 [facility] Comment on above: Order Comment: Speci men Type: BLOOD SPECIMENOrdering Facility: [facility] Address: [address] [place] [address] Performed By: #### 2 4323-8 ####[facility] LABCLIA [id number] [place] [address] CO2 [Moles/Vol] 22 mmol/L Normal 22-30 [facility] Comment on above: Order Comment: Speci men Type: BLOOD SPECIMENOrdering Facility: [facility] Address: [address] [place] [address] Performed By: #### 2 4323-8 ####[facility] LABCLIA [id number] [place] [address] Creatinine [Mass/Vol] 0.75 mg/dL Normal 0.73-1.22 [facility] Comment on above: Order Comment: Speci men Type: BLOOD SPECIMENOrdering Facility: [facility] Address: [address] [place] [address] Performed By: #### 2 4323-8 ####[facility] LABCLIA [id number] [place] [address] ESTIMATED GLOMERULAR FILTRATION RATE 101 mL/min/1.73m??? Normal >=60 [facility] Comment on above: Order Comment: Speci men Type: BLOOD SPECIMENOrdering Facility: [facility] Address: [address] [phone] Result Comment: Megan mated Glomerular Filtration Rate [...] actual GFR. Performed By: #### 2 4323-8 ####[facility] LABCLIA [id number] [place] [address] Glucose [Mass/Vol] 106 mg/dL High 74-99 [facility] Comment on above: Order Comment: Frank real Type: BLOOD SPECIMENOrdering Facility: [facility] Address: [address] [address] Result Comment: The [place] [employer] (ADA) provides guidance for cutoff [...] Standards of Medical Care in Diabetes 2016, [place] [employer]. Diabetes Care. 2016.39(Suppl 1). Performed By: #### 2 4323-8 ####[facility] LABIA [id number] [place] [address] Potassium [Moles/Vol] 4.6 mmol/L Normal 3.7-5.1 [facility] Comment on above: Order Comment: Frank real Type: BLOOD SPECIMENOrdering Facility: [facility] Address: [address] [place] [address] Performed By: #### 2 4323-8 ####[facility] LABCLIA [id number] [place] [address] Protein [Mass/Vol] 6.4 g/dL Normal 6.3-8.0 [facility] Comment on above: Order Comment: Speci men Type: BLOOD SPECIMENOrdering Facility: [facility] Address: [address] [place] [address] Performed By: #### 2 4323-8 ####[facility] LABCLIA [id number] [place] [address] Sodium [Moles/Vol] 136 mmol/L Normal 136-144 [facility] Comment on above: Order Comment: Speci men Type: BLOOD SPECIMENOrdering Facility: [facility] Address: [address] [place] [address] Performed By: #### 2 4323-8 ####[facility] LABCLIA [id number] [place] [address] Urea nitrogen [Mass/Vol] 20 mg/dL Normal 9-24 [facility] Comment on above: Order Comment: Speci men Type: BLOOD SPECIMENOrdering Facility: [facility] Address: [address] [place] [address] Performed By: #### 2 4323-8 ####[facility] LABCLIA [id number] [place] [address] Ferritin SerPl-mCncon 2021 Ferritin [Mass/Vol] 427.0 ng/mL Normal 30.3-565.7 [facility] Comment on above: Order Comment: Speci men Type: BLOOD SPECIMENOrdering Facility: [facility] Address: [address] [place] [address] Performed By: #### 5 0190-8, 2132-9, 2276-4, 2284-8 ####[facility] LABCLIA [id number] [address] [place] Folate SerPl-mCncon 06-06-20 Folate [Mass/Vol] 6.5 ng/mL Normal >4.7 [facility] Comment on above: Order Comment: Speci men Type: BLOOD SPECIMENOrdering Facility: [facility] Address: [address] [place] [address] Performed By: #### 5 0190-8, 2131-9, 2275-4, 8 ####[facility] LABCLIA [id number] [address] [place] Iron and Iron binding capaci ty panelon 06-06-2022 Iron [Mass/Vol] 39 ug/dL Low 41-186 [facility] Comment on above: Order Comment: Speci men Type: BLOOD SPECIMENOrdering Facility: [facility] Address: [address] [place] [address] Performed By: #### 5 0190-8, 9, 2275-09, 8 ####[facility] LABCLIA [id number] [address] Iron binding capacity [Mass/Vol] 228 ug/dL Low 232-386 [facility] Comment on above: Order Comment: Speci men Type: BLOOD SPECIMENOrdering Facility: [facility] Address: [address] [place] [address] Performed By: #### 5 0190-8, 9, 2275-09, 8 ####[facility] LABCLIA [id number] [address] [place] Iron/TIBC [Molar ratio] 17.1 % Normal 15.0-57.0 [facility] Comment on above: Order Comment: Speci men Type: BLOOD SPECIMENOrdering Facility: [facility] Address: [address] [place] [address] Performed By: #### 5 0190-8, 9, 2275-09, 8 ####[facility] LABCLIA [id number] [address] [place] Vit B12 [facility] 022 Cobalamin (Vitamin B12) [Mass/Vol] 517 pg/mL Normal 232-1245 [facility] Comment on above: Order Comment: Speci men Type: BLOOD SPECIMENOrdering Facility: [facility] Address: [address] [place] [address] Performed By: #### 5 0190-8, 2132-9, 2276-4, 2284-8 ####[facility] LABCLIA [id number] [place] [address] [place] XR LSPINE MIN [...] by: REBA REID Date: 2022-05-13 07:55 Normal [facility] CBC W Auto Differential pane l (Bld)on 05-08-2022 Basophils (Bld) [#/Vol] 10*3/uL Normal <0.11 [facility] Comment on above: Order Comment: Speci men Type: BLOOD SPECIMENOrdering Facility: [facility] Address: [address] [address] Performed By: #### 5 7021-8, 48088-7 ####[facility] LABCLIA [id number] [place] [address] Basophils/100 WBC (Bld) 0.3 % Normal [facility] Comment on above: Order Comment: Speci men Type: BLOOD SPECIMENOrdering Facility: [facility] Address: [address] [place] [address] Performed By: #### 5 7021-8, 68676-3 ####[facility] LABCLIA [id number] [place] [address] Differential cell count method Nom (Bld) Auto Normal [facility] Comment on above: Order Comment: Speci men Type: BLOOD SPECIMENOrdering Facility: [facility] Address: [address] [address] Performed By: #### 5 7021-8, 79540-7 ####[facility] LABCLIA [id number] [place] [address] Eosinophils (Bld) [#/Vol] 0.13 10*3/uL Normal <0.46 [facility] Comment on above: Order Comment: Speci men Type: BLOOD SPECIMENOrdering Facility: [facility] Address: [address] [address] Performed By: #### 5 7021-8, 34704-6 ####[facility] LABCLIA [id number] [place] [address] Eosinophils/100 WBC (Bld) 3.9 % Normal [facility] Comment on above: Order Comment: Speci men Type: BLOOD SPECIMENOrdering Facility: [facility] Address: [address] [place] [address] Performed By: #### 5 7021-8, 08233-8 ####[facility] LABCLIA [id number] [place] [address] Erythrocyte distribution width (RBC) [Ratio] 15.9 % High 11.5-15.0 [facility] Comment on above: Order Comment: Speci men Type: BLOOD SPECIMENOrdering Facility: [facility] Address: [address] [address] Performed By: #### 5 7021-8, 49846-7 ####[facility] LABCLIA [id number] [place] [address] Hematocrit (Bld) [Volume fraction] 30.2 % Low 39.0-51.0 [facility] Comment on above: Order Comment: Speci men Type: BLOOD SPECIMENOrdering Facility: [facility] Address: [address] [place] [address] Performed By: #### 5 7021-8, 24661-6 ####[facility] LABCLIA [id number] [place] [address] Hemoglobin (Bld) [Mass/Vol] 9.4 g/dL Low 13.0-17.0 [facility] Comment on above: Order Comment: Speci men Type: BLOOD SPECIMENOrdering Facility: [facility] Address: [address] [place] [address] Performed By: #### 5 7021-8, 93855-6 ####[facility] LABCLIA [id number] [place] [address] Immature granulocytes (Bld) [#/Vol] 10*3/uL Normal <0.10 [facility] Comment on above: Order Comment: Speci men Type: BLOOD SPECIMENOrdering Facility: [facility] Address: [address] [place] [address] Performed By: #### 5 7021-8, 79013-1 ####[facility] LABCLIA [id number] [place] [address] Immature granulocytes/100 WBC (Bld) 0.6 % Normal [facility] Comment on above: Order Comment: Speci men Type: BLOOD SPECIMENOrdering Facility: [facility] Address: [address] [place] [address] Performed By: #### 5 7021-8, 87276-4 ####[facility] LABCLIA [id number] [place] [address] Lymphocytes (Bld) [#/Vol] 1.29 10*3/uL Normal 1.00-4.00 [facility] Comment on above: Order Comment: Speci men Type: BLOOD SPECIMENOrdering Facility: [facility] Address: [address] [address] Performed By: #### 5 7021-8, 58957-7 ####[facility] LABIA [id number] [place] [address] Lymphocytes/100 WBC (Bld) 38.5 % Normal [facility] Comment on above: Order Comment: Speci men Type: BLOOD SPECIMENOrdering Facility: [facility] Address: [address] [address] Performed By: #### 5 7021-8, 40179-3 ####[facility] LABIA [id number] [place] [address] MCH (RBC) [Entitic mass] 33.2 pg Normal 26.0-34.0 [facility] Comment on above: Order Comment: Speci men Type: BLOOD SPECIMENOrdering Facility: [facility] Address: [address] [address] Performed By: #### 5 7021-8, 70570-3 ####[facility] LABIA [id number] [place] [address] MCHC (RBC) [Mass/Vol] 31.1 g/dL Normal 30.5-36.0 [facility] Comment on above: Order Comment: Speci men Type: BLOOD SPECIMENOrdering Facility: [facility] Address: [address] [address] Performed By: #### 5 7021-8, 34296-5 ####[facility] LABIA [id number] [place] [address] MCV (RBC) [Entitic vol] 106.7 fL High 80.0-100.0 [facility] Comment on above: Order Comment: Speci men Type: BLOOD SPECIMENOrdering Facility: [facility] Address: [address] [place] [address] Performed By: #### 5 7021-8, 34335-4 ####[facility] LABCLIA [id number] [place] [address] Monocytes (Bld) [#/Vol] 0.41 10*3/uL Normal <0.87 [facility] Comment on above: Order Comment: Speci men Type: BLOOD SPECIMENOrdering Facility: [facility] Address: [address] [place] [address] Performed By: #### 5 7021-8, 11673-1 ####[facility] LABCLIA [id number] [place] [address] Monocytes/100 WBC (Bld) 12.2 % Normal [facility] Comment on above: Order Comment: Speci men Type: BLOOD SPECIMENOrdering Facility: [facility] Address: [address] [place] [address] Performed By: #### 5 7021-8, 33667-0 ####[facility] LABCLIA [id number] [place] [address] Neutrophils (Bld) [#/Vol] 1.49 10*3/uL Normal 1.45-7.50 [facility] Comment on above: Order Comment: Speci men Type: BLOOD SPECIMENOrdering Facility: [facility] Address: [address] [place] [address] Performed By: #### 5 7021-8, 76319-8 ####[facility] LABCLIA [id number] [place] [address] Neutrophils/100 WBC (Bld) 44.5 % Normal [facility] Comment on above: Order Comment: Speci men Type: BLOOD SPECIMENOrdering Facility: [facility] Address: [address] [place] [address] Performed By: #### 5 7021-8, 55114-4 ####[facility] LABCLIA [id number] [place] [address] Nucleated RBC (Bld) [#/Vol] 10*3/uL Normal <0.01 [facility] Comment on above: Order Comment: Speci men Type: BLOOD SPECIMENOrdering Facility: [facility] Address: [address] [place] [address] Performed By: #### 5 7021-8, 43534-0 ####[facility] LABCLIA [id number] [place] [address] Nucleated RBC/100 WBC (Bld) [Ratio] 0.0 /100 WBC Normal [facility] Comment on above: Order Comment: Speci men Type: BLOOD SPECIMENOrdering Facility: [facility] Address: [address] [place] [address] Performed By: #### 5 7021-8, 46525-3 ####[facility] LABIA [id number] [place] [address] Platelet mean volume (Bld) [Entitic vol] 8.7 fL Low 9.0-12.7 [facility] Comment on above: Order Comment: Speci men Type: BLOOD SPECIMENOrdering Facility: [facility] Address: [address] [place], [place] [phone] Performed By: #### 5 7021-8, 84556-7 ####[facility] LABIA [id number] [place] [address] Platelets (Bld) [#/Vol] 238 10*3/uL Normal 150-400 [facility] Comment on above: Order Comment: Speci men Type: BLOOD SPECIMENOrdering Facility: [facility] Address: [address] [place], [place] [phone] Performed By: #### 5 7021-8, 91048-9 ####[facility] LABIA [id number] [place] [address] RBC (Bld) [#/Vol] 2.83 10*6/uL Low 4.20-6.00 [facility] Comment on above: Order Comment: Speci men Type: BLOOD SPECIMENOrdering Facility: [facility] Address: [address] [address] Performed By: #### 5 7021-8, 22843-4 ####[facility] LABCLIA [id number] [place] [address] WBC (Bld) [#/Vol] 3.35 10*3/uL Low 3.70-11.00 [facility] Comment on above: Order Comment: Speci men Type: BLOOD SPECIMENOrdering Facility: [facility] Address: [address] [address] Performed By: #### 5 7021-8, 51555-6 ####[facility] LABIA [id number] [place] [address] CNNURSEon 05-08-2022 CNNURSE Normal [facility] CNOVSPon 05-08-2022 CNOVSP Normal [facility] Comprehensive metabolic 2000 panelon 05-08-2022 Albumin [Mass/Vol] 3.7 g/dL Low 3.9-4.9 [facility] Comment on above: Order Comment: Speci men Type: BLOOD SPECIMENOrdering Facility: [facility] Address: [address] [address] Performed By: #### 2 532-0, 22087-0 ####[facility] LABIA [id number] [place] [address] ALP [Catalytic activity/Vol] 154 U/L High 38-113 [facility] Comment on above: Order Comment: Speci men Type: BLOOD SPECIMENOrdering Facility: [facility] Address: [address] [address] Performed By: #### 2 532-0, 17035-1 ####[facility] LABIA [id number] [place] [address] ALT [Catalytic activity/Vol] 32 U/L Normal 10-54 [facility] Comment on above: Order Comment: Speci men Type: BLOOD SPECIMENOrdering Facility: [facility] Address: [address] [address] Performed By: #### 2 532-0, ####[facility] LABCLIA [id number] [place] [address] Anion gap [Moles/Vol] 9 mmol/L Normal 9-18 [facility] Comment on above: Order Comment: Speci men Type: BLOOD SPECIMENOrdering Facility: [facility] Address: [address] [address] Performed By: #### 2 532-0, ####[facility] LABCLIA [id number] [place] [address] AST [Catalytic activity/Vol] 30 U/L Normal 14-40 [facility] Comment on above: Order Comment: Speci men Type: BLOOD SPECIMENOrdering Facility: [facility] Address: [address] [address] Performed By: #### 2 532-0, ####[facility] LABCLIA [id number] [place] [address] Bilirubin [Mass/Vol] 0.4 mg/dL Normal 0.2-1.3 [facility] Comment on above: Order Comment: Speci men Type: BLOOD SPECIMENOrdering Facility: [facility] Address: [address] [address] Performed By: #### 2 532-0, ####[facility] LABCLIA [id number] [place] [address] Calcium [Mass/Vol] 8.9 mg/dL Normal 8.5-10.2 [facility] Comment on above: Order Comment: Speci men Type: BLOOD SPECIMENOrdering Facility: [facility] Address: [address] [address] Performed By: #### 2 532-0, ####[facility] LABCLIA [id number] [place] [address] Chloride [Moles/Vol] 110 mmol/L High 97-105 [facility] Comment on above: Order Comment: Speci men Type: BLOOD SPECIMENOrdering Facility: [facility] Address: [address] [place] [address] Performed By: #### 2 532-0, 82618-8 ####[facility] LABCLIA [id number] [place] [address] CO2 [Moles/Vol] 17 mmol/L Low 22-30 [facility] Comment on above: Order Comment: Speci men Type: BLOOD SPECIMENOrdering Facility: [facility] Address: [address] [place] [address] Performed By: #### 2 532-0, 03229-0 ####[facility] LABCLIA [id number] [place] [address] Creatinine [Mass/Vol] 0.76 mg/dL Normal 0.73-1.22 [facility] Comment on above: Order Comment: Speci men Type: BLOOD SPECIMENOrdering Facility: [facility] Address: [address] [place] [address] Performed By: #### 2 532-0, ####[facility] LABCLIA [id number] [place] [address] ESTIMATED GLOMERULAR FILTRATION RATE 100 mL/min/1.73m??? Normal >=60 [facility] Comment on above: Order Comment: Speci men Type: BLOOD SPECIMENOrdering Facility: [facility] Address: [address] [place] [address] Result Comment: Megan mated Glomerular Filtration Rate [...] actual GFR. Performed By: #### 2 532-0, 13658-0 ####[facility] LABCLIA [id number] [place] [address] Glucose [Mass/Vol] 96 mg/dL Normal 74-99 [facility] Comment on above: Order Comment: Speci men Type: BLOOD SPECIMENOrdering Facility: [facility] Address: [address] [place] [address] Result Comment: The [place] [employer] (ADA) provides guidance for cutoff [...] Standards of Medical Care in Diabetes 2016, [place] [employer]. Diabetes Care. 2016.39(Suppl 1). Performed By: #### 2 532-0, 42184-3 ####[facility] LABCLIA [id number] [place] [address] Potassium [Moles/Vol] 4.1 mmol/L Normal 3.7-5.1 [facility] Comment on above: Order Comment: Speci men Type: BLOOD SPECIMENOrdering Facility: [facility] Address: [address] [id number] Performed By: #### 2 532-0, ####[facility] LABCLIA [id number] [place] [address] Protein [Mass/Vol] 6.8 g/dL Normal 6.3-8.0 [facility] Comment on above: Order Comment: Speci men Type: BLOOD SPECIMENOrdering Facility: [facility] Address: [address] [address] Performed By: #### 2 532-0, 12331-8 ####[facility] LABCLIA [id number] [place] [address] Sodium [Moles/Vol] 136 mmol/L Normal 136-144 [facility] Comment on above: Order Comment: Speci men Type: BLOOD SPECIMENOrdering Facility: [facility] Address: [address] [place] [address] Performed By: #### 2 532-0, 83983-0 ####[facility] LABCLIA [id number] [place] [address] Urea nitrogen [Mass/Vol] 30 mg/dL High 9-24 [facility] Comment on above: Order Comment: Speci men Type: BLOOD SPECIMENOrdering Facility: [facility] Address: [address] [place] [address] Performed By: #### 2 532-0, 61543-1 ####[facility] LABCLIA [id number] [place] [address] Ferritin SerPl-mCncon 2021 Ferritin [Mass/Vol] 644.0 ng/mL High 30.3-565.7 [facility] Comment on above: Order Comment: Speci men Type: BLOOD SPECIMENOrdering Facility: [facility] Address: [address] [place] [address] Performed By: #### 4 542-7, 01506-0, 2276-4 ####[facility] LABCLIA [id number] [place] [address] [place] Folate SerPl-mCncon 05-08-20 22 Folate [Mass/Vol] 7.3 ng/mL Normal >4.7 [facility] Comment on above: Order Comment: Speci men Type: BLOOD SPECIMENOrdering Facility: [facility] Address: [address] [place] [address] Performed By: #### 2 132-9, 2284-8 ####[facility] LABCLIA [id number] [address] [place] Haptoglob SerPl-mCncon 05-08 Haptoglobin [Mass/Vol] 122 mg/dL Normal 31-238 [facility] Comment on above: Order Comment: Speci men Type: BLOOD SPECIMENOrdering Facility: [facility] Address: [address] [place] [address] Performed By: #### 4 542-7, 97921-5, 6-4 ####[facility] LABCLIA [id number] [place] [address] [place] Iron and Iron binding capaci ty panelon 05-08-2022 Iron [Mass/Vol] 48 ug/dL Normal 41-186 [facility] Comment on above: Order Comment: Speci men Type: BLOOD SPECIMENOrdering Facility: [facility] Address: [address] [place] [address] Performed By: #### 4 542-7, 02322-4, 4 ####[facility] LABCLIA [id number] [place] [address] [place] Iron binding capacity [Mass/Vol] 217 ug/dL Low 232-386 [facility] Comment on above: Order Comment: Speci men Type: BLOOD SPECIMENOrdering Facility: [facility] Address: [address] [place] [address] Performed By: #### 4 542-7, 58306-5, 2275-4 ####[facility] LABCLIA [id number] [place] [address] [place] Iron/TIBC [Molar ratio] 22.1 % Normal 15.0-57.0 [facility] Comment on above: Order Comment: Speci men Type: BLOOD SPECIMENOrdering Facility: [facility] Address: [address] [place], [place] [id number] Performed By: #### 4 542-7, 85256-0, 6-4 ####[facility] LABCLIA [id number] [facility] [id number] [id number] [place] [facility] LDH SerPl-cCncon 05-08-2022 LDH [Catalytic activity/Vol] 138 U/L Normal 135-225 [facility] Comment on above: Order Comment: Speci men Type: BLOOD SPECIMENOrdering Facility: [facility] Address: [address] [place] [address] Performed By: #### 2 532-0, 09435-5 ####[facility] LABIA [id number] [place] [address] Retics #on 05-08-2022 Reticulocytes (Bld) [#/Vol] 0.97651 10*3/uL Normal 0.018-0.10 0 [facility] Comment on above: Order Comment: Speci men Type: BLOOD SPECIMENOrdering Facility: [facility] Address: [address] [place] [address] Performed By: #### 5 7021-8, 60190-5 ####[facility] LABIA [id number] [place] [address] Reticulocytes (Bld) [#/Vol]o n 05-08-2022 Reticulocytes/100 RBC (Bld) 2.2 % High 0.4-2.0 [facility] Comment on above: Order Comment: Speci men Type: BLOOD SPECIMENOrdering Facility: [facility] Address: [address] [place] [address] Performed By: #### 5 7021-8, 11444-0 ####[facility] LABIA [id number] [place] [address] Vit B12 SerPl-mCncon 022 Cobalamin (Vitamin B12) [Mass/Vol] 574 pg/mL Normal 232-1245 [facility] Comment on above: Order Comment: Speci men Type: BLOOD SPECIMENOrdering Facility: [facility] Address: [address] [place] [address] Performed By: #### 2 132-9, 2284-8 ####[facility] LABCLIA [id number] [place] [address] [place] LIPID PROFILEon 02-04-2022 CHOL-HDL RATIO NORM SEE BELOW Normal [facility] Comment on above: Result Comment: 3.3 - 4.4 LOW RISK 4.4 - 7.1 AVERAGE RISK 7.1 - 11.0 MODERATE RISK >11.0 HIGH RISK Performed By: #### L IPID, CMP #### [facility] [address] [address] [address] Mel Barrientos Cholesterol [Mass/Vol] 100 mg/dL Normal <=200 [facility] Comment on above: Performed By: #### L IPID, CMP #### [facility] [address] [address] [address] Mel Barrientos Cholesterol in HDL [Mass/Vol] 20 mg/dL Critically low 40-60 [facility] Comment on above: Performed By: #### L IPID, CMP #### [facility] [address] [address] [address] Mel Barrientos Cholesterol in LDL [Mass/Vol] 63.6 mg/dL Normal [facility] Comment on above: Performed By: #### L IPID, CMP #### [facility] [address] [address] [address] Mel Barrientos Cholesterol.total/Cho lesterol in HDL [Mass ratio] 5.0 {ratio} Normal [facility] Comment on above: Performed By: #### L IPID, CMP #### [facility] [address] [address] [address] Mel Barrientos HDL NORMAL > or = 60 mg/dl - LO W CARDIOVASCULAR RISK <40 mg/dl - HIGH CARDIOVASCULAR RISK Normal [facility] Comment on above: Performed By: #### L IPID, CMP #### [facility] [address] [address] [address] Mel Barrientos LDL CALC NORMAL SEE BELOW Normal [facility] Comment on above: Result Comment: <100 mg/dl OPTIMAL 100 - 129 mg/dl NEAR OR ABOVE OPTIMAL 130 - 159 mg/dl BORDERLINE HIGH 160 - 189 mg/dl HIGH >190 mg/dl VERY HIGH Performed By: #### L IPID, CMP #### [facility] [address] [place] [address] Dr. Mel Barrientos Triglyceride [Mass/Vol] 82 mg/dL Normal <=150 [facility] Comment on above: Performed By: #### L IPID, CMP #### [facility] [address] [place] [address] Dr. Mel Barrientos VLDL CALC 16.4 mg/dL Normal [facility] Comment on above: Performed By: #### L IPID, CMP #### [facility] [address] [place] [address] Dr. Mel Barrientos PROF CHEM 8 (BAS METB)on Anion gap [Moles/Vol] 15.8 mmol/L Normal [facility] Comment on above: Performed By: #### L IPID, CMP #### [facility] [address] [place] [address] Dr. Mel Barrientos Calcium [Mass/Vol] 8.5 mg/dL Normal 8.5-10.1 [facility] Comment on above: Performed By: #### L IPID, CMP #### [facility] [address] [place] [address] Dr. Mel Barrientos Chloride [Moles/Vol] 109 mmol/L Critically high 98-107 [facility] Comment on above: Performed By: #### L IPID, CMP #### [facility] [address] [place] [address] Dr. Mel Barrientos CO2 [Moles/Vol] 17.7 mmol/L Critically low 21.0-32.0 [facility] Comment on above: Performed By: #### L IPID, CMP #### [facility] [address] [place] [address] Dr. Mel Barrientos Creatinine [Mass/Vol] 0.79 mg/dL Normal 0.70-1.30 [facility] Comment on above: Performed By: #### L IPID, CMP #### [facility] [address] [place] [address] Dr. Mel Barrientos EGFR-AF COOK ISLANDER >60 Normal >=60 [facility] Comment on above: Performed By: #### L IPID, CMP #### [facility] [address] [place] [address] Dr. Mel Barrientos EGFR-NON AF COOK ISLANDER >60 Normal >=60 [facility] Comment on above: Performed By: #### L IPID, CMP #### [facility] [address] [address] [address] Mel Barrientos Glucose [Mass/Vol] 116 mg/dL Critically high 74-106 [facility] Comment on above: Performed By: #### L IPID, CMP #### [facility] [address] [place] [address] Dr. Mel Barrientos Potassium [Moles/Vol] 4.5 mmol/L Normal 3.5-5.1 [facility] Comment on above: Performed By: #### L IPID, CMP #### [facility] [address] [place] [address] Dr. Mel Barrientos Sodium [Moles/Vol] 138 mmol/L Normal 136-145 [facility] Comment on above: Performed By: #### L IPID, CMP #### [facility] [address] [place] [address] Dr. Mel Barrientos Urea nitrogen [Mass/Vol] 29.0 mg/dL Critically high 7.0-18.0 [facility] Comment on above: Performed By: #### L IPID, CMP #### [facility] [address] [place] [address] Dr. Mel Barrientos Urea nitrogen/Creatinine [Mass ratio] 36.7 mg/mg Normal [facility] Comment on above: Performed By: #### L IPID, CMP #### [facility] [address] [place] [address] Dr. Mel Barrientos SGPhillip 02-04-2022 AST [Catalytic activity/Vol] 35 U/L Normal 15-37 [facility] Comment on above: Performed By: #### B MP, AST, ALT, LIPID #### [facility] [address] [address] [address] Mel Barrientos [facility] 02-04-2022 ALT [Catalytic activity/Vol] 64 U/L Critically high 16-63 [facility] Comment on above: Performed By: #### L IPID, CMP #### [facility] [address] [address] [address] Mel Barrientos Office Visit (Cardiology)on 01-09-2022 [...] Aminotransferase, Serum; Status:Active - Retrospective Authorization; Requested for:[id number]; AST; Status:Active - Retrospective Authorization; Requested for:[id number]; Basic Metabolic Panel; Status:Active - Retrospective Authorization; Requested for:[id number]; Lipid Panel; Status:Active - Retrospective Authorization; Requested for:[id number]; SocHx: Former smoker Tobacco Use Screening; Status:Complete; Done: [id number] Patient Instructions By signing my name below, I, Gill Hart LPN, Scribe, attest that this documentation has been prepared under the direction and in the presence of Dr. Irving Abreu DO. All medical record entries made by the Gabby[facility] were at my direction and personally dictated [...] of 40%. He is status post anterior [place], with PCI of the LAD in 2010. [...] Oral TabletTAKE 1 TABLET AT BEDTIME. Creon [id number] UNIT Oral Capsule Delayed Release Particles1 tablet [...] negative for complaint. Vitals Vital Signs Recorded: [id number] 11:21AM Heart Rate80, R Radial Sggpkyvz133, RUE Uqayngqqy33, RUE Height5 ft 8 in Zihlif122 lb BMI Puoltwtlhw91.9 kg/m2 BSA Calculated1.78 Tobacco Useb) No PHQ-2 [...] Neck: n (more content not included)... Normal [facility] VITAMIN B12on 11-26-2021 Cobalamin (Vitamin B12) [Mass/Vol] 609.0 pg/mL Normal 193.0-986. 0 [facility] Comment on above: Performed By: #### P T, PTT #### [facility] [address] [place] [address] Dr. Mel Barrientos CBC AUTO DIFFon 11-12-2021 BASO # 0.0 103/ul Normal 0.0-0.1 [facility] Comment on above: Performed By: #### C BC #### [facility] [address] [place] [address] Dr. Mel Barrientos Basophils/100 WBC (Bld) 0.4 % Normal 0.2-2.0 [facility] Comment on above: Performed By: #### C BC #### [facility] [address] [place] [address] Dr. Mel Barrientos EO # 0.1 103/ul Normal 0.0-0.7 [facility] Comment on above: Performed By: #### C BC #### [facility] [address] [place] [address] Dr. Mel Barrientos Eosinophils/100 WBC (Bld) 1.6 % Normal 0.9-7.0 [facility] Comment on above: Performed By: #### C BC #### [facility] [address] [place] [address] Dr. Mel Barrientos Erythrocyte distribution width (RBC) [Ratio] 14.4 % Normal 11.0-15.0 [facility] Comment on above: Performed By: #### C BC #### [facility] [address] [place] [address] Dr. Mel Barrientos Hematocrit (Bld) [Volume fraction] 38.1 % Critically low 42.0-54.0 [facility] Comment on above: Performed By: #### C BC #### [facility] [address] [place] [address] Dr. Mel Barrientos Hemoglobin (Bld) [Mass/Vol] 12.5 g/dL Critically low 14.0-18.0 [facility] Comment on above: Performed By: #### C BC #### [facility] [address] [place] [address] Dr. Mel Barrientos IG # 0.02 10e3/ul Normal 0.00-0.03 [facility] Comment on above: Performed By: #### C BC #### [facility] [address] [place] [address] Dr. Mel Barrientos IG % 0.4 % Normal 0.0-0.5 [facility] Comment on above: Performed By: #### C BC #### [facility] [address] [place] [address] Dr. Mel Barrientos LYMPH # 2.2 103/ul Normal 1.2-3.8 [facility] Comment on above: Performed By: #### C BC #### [facility] [address] [place] [address] Dr. Mel Barrientos Lymphocytes/100 WBC (Bld) 43.2 % Normal 20.5-60.0 [facility] Comment on above: Performed By: #### C BC #### [facility] [address] [place] [address] Dr. Mel Barrientos MANUAL DIFF REQ NO Normal [facility] Comment on above: Performed By: #### C BC #### [facility] [address] [place] [address] Dr. Mel Barrientos MCH (RBC) [Entitic mass] 35.1 pg Critically high 25.9-34.0 [facility] Comment on above: Performed By: #### C BC #### [facility] [address] [place] [address] Dr. Mel Barrientos MCHC (RBC) [Mass/Vol] 32.8 g/dL Normal 29.9-35.2 [facility] Comment on above: Performed By: #### C BC #### [facility] [address] [place] [address] Dr. Mel Barrientos MCV (RBC) [Entitic vol] 107.0 fL Critically high 80.0-94.0 [facility] Comment on above: Result Comment: MACR OCYTOSIS CONFIRMED ON PERIPHERAL SMEAR Performed By: #### C BC #### [facility] [address] [place] [address] Dr. Mel Barrientos MONO # 0.5 103/ul Normal 0.3-0.8 [facility] Comment on above: Performed By: #### C BC #### [facility] [address] [place] [address] Dr. Mel Barrientos Monocytes/100 WBC (Bld) 9.4 % Normal 1.7-12.0 [facility] Comment on above: Performed By: #### C BC #### [facility] [address] [place] [address] Dr. Mel Barrientos NEUT # 2.3 103/ul Normal 1.4-6.5 [facility] Comment on above: Performed By: #### C BC #### [facility] [address] [place] [address] Dr. Mel Barrientos Neutrophils/100 WBC (Bld) 45.0 % Normal 43.0-75.0 [facility] Comment on above: Performed By: #### C BC #### [facility] [address] [place], [place] [id number] Dr. Mel Barrientos Platelet mean volume (Bld) [Entitic vol] 9.3 fL Critically low 9.5-13.5 [facility] Comment on above: Performed By: #### C BC #### [facility] [address] [place] [address] Dr. Mel Barrientos PLT 307 103/ul Normal 150-450 [facility] Comment on above: Performed By: #### C BC #### [facility] [address] [place] [address] Dr. Mel Barrientos RBC 3.56 106/ul Critically low 4.70-6.10 [facility] Comment on above: Performed By: #### C BC #### [facility] [address] [place] [address] Dr. Mel Barrientos WBC 5.1 103/ul Normal 4.0-11.0 [facility] Comment on above: Performed By: #### C BC #### [facility] [address] [place] [address] Dr. Mel Barrientos PROF 14(COMP METB)on 022 Albumin [Mass/Vol] 2.3 g/dL Critically low 3.4-5.0 [facility] Comment on above: Performed By: #### L IPID, CMP #### [facility] [address] [place] [address] Dr. Mel Barrientos Albumin/Globulin [Mass ratio] 0.6 {ratio} Normal [facility] Comment on above: Performed By: #### L IPID, CMP #### [facility] [address] [place] [address] Dr. Mel Barrientos ALP [Catalytic activity/Vol] 189 U/L Critically high 46-116 [facility] Comment on above: Performed By: #### L IPID, CMP #### [facility] [address] [place] [address] Dr. Mel Barrientos ALT [Catalytic activity/Vol] 86 U/L Critically high 16-63 [facility] Comment on above: Performed By: #### L IPID, CMP #### [facility] [address] [address] [address] Mel Barrientos Anion gap [Moles/Vol] 15.4 mmol/L Normal [facility] Comment on above: Performed By: #### L IPID, CMP #### [facility] [address] [place] [address] Dr. Mel Barrientos AST [Catalytic activity/Vol] 67 U/L Critically high 15-37 [facility] Comment on above: Performed By: #### L IPID, CMP #### [facility] [address] [place] [address] Dr. Mel Barrientos Bilirubin [Mass/Vol] 0.4 mg/dL Normal 0.2-1.0 [facility] Comment on above: Performed By: #### L IPID, CMP #### [facility] [address] [place] [address] Dr. Mel Barrientos Calcium [Mass/Vol] 7.7 mg/dL Critically low 8.5-10.1 [facility] Comment on above: Performed By: #### L IPID, CMP #### [facility] [address] [place] [address] Dr. Mel Barrientos Chloride [Moles/Vol] 106 mmol/L Normal 98-107 [facility] Comment on above: Performed By: #### L IPID, CMP #### [facility] [address] [place] [address] Dr. Mel Barrientos CO2 [Moles/Vol] 17.7 mmol/L Critically low 21.0-32.0 [facility] Comment on above: Performed By: #### L IPID, CMP #### [facility] [address] [place] [address] Dr. Mel Barrientos Creatinine [Mass/Vol] 0.91 mg/dL Normal 0.70-1.30 [facility] Comment on above: Performed By: #### L IPID, CMP #### [facility] [address] [place] [address] Dr. Mel Barrientos EGFR-AF [place] ISLANDER >60 Normal >=60 [facility] Comment on above: Performed By: #### L IPID, CMP #### [facility] [address] [address] [address] Mel Barrientos EGFR-NON AF [place] ISLANDER >60 Normal >=60 [facility] Comment on above: Performed By: #### L IPID, CMP #### [facility] [address] [address] [address] Mel Barrientos Globulin (S) [Mass/Vol] 3.8 g/dL Normal [facility] Comment on above: Performed By: #### L IPID, CMP #### [facility] [address] [place] [address] Dr. Mel Barrientos Glucose [Mass/Vol] 77 mg/dL Normal 74-106 [facility] Comment on above: Performed By: #### L IPID, CMP #### [facility] [address] [place] [address] Dr. Mel Barrientos Potassium [Moles/Vol] 4.1 mmol/L Normal 3.5-5.1 [facility] Comment on above: Performed By: #### L IPID, CMP #### [facility] [address] [address] [address] Mel Barrientos Protein [Mass/Vol] 6.1 g/dL Critically low 6.4-8.2 [facility] Comment on above: Performed By: #### L IPID, CMP #### [facility] [address] [place] [address] Dr. Mel Barrientos Sodium [Moles/Vol] 135 mmol/L Critically low 136-145 [facility] Comment on above: Performed By: #### L IPID, CMP #### [facility] [address] [place] [address] Dr. Mel Barrientos Urea nitrogen [Mass/Vol] 25.0 mg/dL Critically high 7.0-18.0 [facility] Comment on above: Performed By: #### L IPID, CMP #### [facility] [address] [place] [address] Dr. Mel Barrientos Urea nitrogen/Creatinine [Mass ratio] 27.5 mg/mg Normal [facility] Comment on above: Performed By: #### L IPID, CMP #### [facility] [address] [place] [address] Dr. Mel Barrientos GLYCOHEMOGLOBIN A1Con 2021 ADA RECOMMENDATION ADA THERAPEUTIC TARG ET 6.0 - 7.0 ACTION SUGGESTED > 7.0 Normal [facility] Comment on above: Performed By: #### L IPID, CMP #### [facility] [address] [address] [address] Mel Barrientos Glucose [Mass/Vol] 100 mg/dL Normal [facility] Comment on above: Performed By: #### L IPID, CMP #### [facility] [address] [place] [address] Dr. Mel Barrientos HbA1c (Bld) [Mass fraction] 5.1 % Normal <=6.0 [facility] Comment on above: Performed By: #### L IPID, CMP #### [facility] [address] [place] [address] Dr. Mel Barrientos LIPID PROFILEon 10-10-2021 CHOL-HDL RATIO NORM SEE BELOW Normal [facility] Comment on above: Result Comment: 3.3 - 4.4 LOW RISK 4.4 - 7.1 AVERAGE RISK 7.1 - 11.0 MODERATE RISK >11.0 HIGH RISK Performed By: #### L IPID, CMP #### [facility] [address] [place] [address] Dr. Mel Barrientos Cholesterol [Mass/Vol] 63 mg/dL Normal <=200 [facility] Comment on above: Performed By: #### L IPID, CMP #### [facility] [address] [place] [address] Dr. Mel Barrientos Cholesterol in HDL [Mass/Vol] 12 mg/dL Critically low 40-60 [facility] Comment on above: Performed By: #### L IPID, CMP #### [facility] [facility] [address] [place] [address] Dr. Mel Barrientos Cholesterol in LDL [Mass/Vol] 32.2 mg/dL Normal [facility] Comment on above: Performed By: #### L IPID, CMP #### [facility] [address] [place] [address] Dr. Mel Barrientos Cholesterol.total/Cho lesterol in HDL [Mass ratio] 5.3 {ratio} Normal [facility] Comment on above: Performed By: #### L IPID, CMP #### [facility] [address] [place] [address] Dr. Mel Barrientos HDL NORMAL > or = 60 mg/dl - LO W CARDIOVASCULAR RISK <40 mg/dl - HIGH CARDIOVASCULAR RISK Normal [facility] Comment on above: Performed By: #### L IPID, CMP #### [facility] [address] [place] [address] Dr. Mel Barrientos LDL CALC NORMAL SEE BELOW Normal [facility] Comment on above: Result Comment: <100 mg/dl OPTIMAL 100 - 129 mg/dl NEAR OR ABOVE OPTIMAL 130 - 159 mg/dl BORDERLINE HIGH 160 - 189 mg/dl HIGH >190 mg/dl VERY HIGH Performed By: #### L IPID, CMP #### [facility] [address] [place] [address] Dr. Mel Barrientos Triglyceride [Mass/Vol] 94 mg/dL Normal <=150 [facility] Comment on above: Performed By: #### L IPID, CMP #### [facility] [address] [place] [address] Dr. Mel Barrientos VLDL CALC 18.8 mg/dL Normal [facility] Comment on above: Performed By: #### L IPID, CMP #### [facility] [address] [place] [address] Dr. Mel Barrientos PROF 14(COMP METB)on 022 Albumin [Mass/Vol] 2.4 g/dL Critically low 3.4-5.0 Th e [facility] Comment on above: Performed By: #### L IPID, CMP #### [facility] [address] [place] [address] Dr. Mel Barrientos Albumin/Globulin [Mass ratio] 0.8 {ratio} Normal [facility] Comment on above: Performed By: #### L IPID, CMP #### [facility] [address] [place] [address] Dr. Mel Barrientos ALP [Catalytic activity/Vol] 153 U/L Critically high 46-116 [facility] Comment on above: Performed By: #### L IPID, CMP #### [facility] [address] [place] [address] Dr. Mel Barrientos ALT [Catalytic activity/Vol] 133 U/L Critically high 16-63 [facility] Comment on above: Performed By: #### L IPID, CMP #### [facility] [address] [place] [address] Dr. Mel Barrientos Anion gap [Moles/Vol] 12.1 mmol/L Normal [facility] Comment on above: Performed By: #### L IPID, CMP #### [facility] [address] [place] [address] Dr. Mel Barrientos AST [Catalytic activity/Vol] 215 U/L Critically high 15-37 [facility] Comment on above: Performed By: #### L IPID, CMP #### [facility] [address] [place] [address] Dr. Mel Barrientos Bilirubin [Mass/Vol] 0.4 mg/dL Normal 0.2-1.3 [facility] Comment on above: Performed By: #### L IPID, CMP #### [facility] [address] [place] [address] Dr. Mel Barrientos Calcium [Mass/Vol] 7.6 mg/dL Critically low 8.5-10.1 [facility] Comment on above: Performed By: #### L IPID, CMP #### [facility] [address] [place] [address] Dr. Mel Barrientos Chloride [Moles/Vol] 107 mmol/L Normal 98-107 [facility] Comment on above: Performed By: #### L IPID, CMP #### [facility] [address] [place] [address] Dr. Mel Barrientos CO2 [Moles/Vol] 22.8 mmol/L Normal 22.0-30.0 [facility] Comment on above: Performed By: #### L IPID, CMP #### [facility] [address] [place] [address] Dr. Mel Barrientos Creatinine [Mass/Vol] 0.99 mg/dL Normal 0.66-1.25 [facility] Comment on above: Performed By: #### L IPID, CMP #### [facility] [address] [place] [address] Dr. Mel Barrientos EGFR-AF COOK ISLANDER >60 Normal >=60 [facility] Comment on above: Performed By: #### L IPID, CMP #### [facility] [address] [address] [address] Mel Barrientos EGFR-NON AF [place] ISLANDER >60 Normal >=60 [facility] Comment on above: Performed By: #### L IPID, CMP #### [facility] [address] [place] [address] Dr. Mel Barrientos Globulin (S) [Mass/Vol] 3.2 g/dL Normal [facility] Comment on above: Performed By: #### L IPID, CMP #### [facility] [address] [place] [address] Dr. Mel Barrientos Glucose [Mass/Vol] 68 mg/dL Critically low 74-106 [facility] Comment on above: Performed By: #### L IPID, CMP #### [facility] [address] [place] [address] Dr. Mel Barrientos Potassium [Moles/Vol] 4.9 mmol/L Normal 3.4-5.0 [facility] Comment on above: Performed By: #### L IPID, CMP #### [facility] [address] [place] [address] Dr. Mel Barrientos Protein [Mass/Vol] 5.6 g/dL Critically low 6.1-8.2 [facility] Comment on above: Performed By: #### L IPID, CMP #### [facility] [address] [place] [address] Dr. Mel Barrientos Sodium [Moles/Vol] 137 mmol/L Normal 137-145 [facility] Comment on above: Performed By: #### L IPID, CMP #### [facility] [address] [place] [address] Dr. Mel Barrientos Urea nitrogen [Mass/Vol] 30.0 mg/dL Critically high 7.0-18.0 [facility] Comment on above: Performed By: #### L IPID, CMP #### [facility] [address] [address] [address] Mel Barrientos Urea nitrogen/Creatinine [Mass ratio] 30.3 mg/mg Normal [facility] Comment on above: Performed By: #### L IPID, CMP #### [facility] [address] [address] [address] Mel Barrientos CASE MANAGEMon 10-09-2017 CASE MANAGEM HNO ID: [id number] thor: Clementina Guerra (Lsw)rvice: Care ManagementAuthor Type: Social WorkerType: Care Mgt Progress NoteFiled: 10/09/2017 3:12 PMNote Text:CARE MANAGEMENT DISCHARGE NOTESERVICE DATE: 10/09/2017SERVICE TIME: 3:02 PM LOS: 9 daysAdmission Date: 09/30/2017DISCHARGE ARRANGEMENT (list agency and phone number)halfway facilityProvider: [facility] VLPEVVCCR ASSESSMENT:Caregiver is ready, willing and able to meet the patient's needs asrecommended by the inter-professional team? YesPatient's transition needs and plan for meeting these needs: SNFDoes the patient have an acute stroke diagnosis, or has the patient had astroke during this admission? NoHANDOFF COMMUNICATION:Primary Care Physician: Dr. Adriane Nichols NSSSOHHRSANWZV ARRANGEMENTS:Car FamilyADDITIONAL CONTACT RESOURCES: Pt sister Briana Muller [phone] Prior to Discharge: Ready for DischargePt medically cleared for d/c. Pt referral updated and Liaison met with Ptand nursing this afternoon. CM prepared d/c packet and 7000 and placed onPt chart w/number for nursing to call report. Per Pt and Pt sister familyto transport Pt around [phone] today. Text to Allegra GARCIA) to contactnursing on Pt d/c instructions.SIGNATURE: TRACI Hammer PATIENT NAME: Rocio FrischDATE: October 09, 2017 : 3:02 PM PAGER/CONTACT #: [phone] Normal [facility] CBC and Differentialon 10-09 Abs Baso <0.03 Normal <0.11 [facility] Comment on above: Performed By: #### P T, PTT, AMYL, CMP, LIPA, PHOS ####[place] [address]#### TRANSF ####[place] [address] Abs Lamar 0.40 k/uL Normal <0.87 [facility] Comment on above: Performed By: #### P T, PTT, AMYL, CMP, LIPA, PHOS ####[place] [address]#### TRANSF ####[place] [address] Abs Neut 3.59 k/uL Normal 1.45-7.50 [facility] Comment on above: Performed By: #### P T, PTT, AMYL, CMP, LIPA, PHOS ####[place] [address]#### TRANSF ####[place] [address] Basophils/100 WBC Auto (Bld) 0.3 % [facility] Comment on above: Performed By: #### P T, PTT, AMYL, CMP, LIPA, PHOS ####[place] [address]#### TRANSF ####[place] [address] DTYPE Auto Diff Normal [facility] Comment on above: Performed By: #### P T, PTT, AMYL, CMP, LIPA, PHOS ####[place] [address]#### TRANSF ####[place] [address] Eosinophils 0.10 10*3/uL Normal <0.46 [facility] Comment on above: Performed By: #### P T, PTT, AMYL, CMP, LIPA, PHOS ####[place] [address]#### TRANSF ####[place] [address] Eosinophils/100 leukocytes 1.7 % Normal [facility] Comment on above: Performed By: #### P T, PTT, AMYL, CMP, LIPA, PHOS ####[place] [address]#### TRANSF ####[place] [address] Erythrocyte distribution width Auto Ratio (RBC) 16.8 % High 11.5-15.0 [facility] Comment on above: Performed By: #### P T, PTT, AMYL, CMP, LIPA, PHOS ####[place] [address]#### TRANSF ####[place] [address] Erythrocytes (RBC) 3.79 10*6/uL Low 4.20-6.00 [facility] Comment on above: Performed By: #### P T, PTT, AMYL, CMP, LIPA, PHOS ####[place] [address]#### TRANSF ####[place] [address] Hematocrit (HCT) 29.8 % Low 39.0-51.0 [facility] Comment on above: Performed By: #### P T, PTT, AMYL, CMP, LIPA, PHOS ####[place] [address]#### TRANSF ####[place] [address] Hemoglobin mass conc (Bld) 9.5 g/dL Low 13.0-17.0 [facility] Comment on above: Performed By: #### P T, PTT, AMYL, CMP, LIPA, PHOS ####[place] [address]#### TRANSF ####[place] [address] Lymphocytes 1.69 10*3/uL Normal 1.00-4.00 [facility] Comment on above: Performed By: #### P T, PTT, AMYL, CMP, LIPA, PHOS ####[place] [address]#### TRANSF ####[place] [address] Lymphocytes/100 leukocytes 29.1 % Normal [facility] Comment on above: Performed By: #### P T, PTT, AMYL, CMP, LIPA, PHOS ####[place] [address]#### TRANSF ####[place] [address] MCH 25.1 pG Low 26.0-34.0 [facility] Comment on above: Performed By: #### P T, PTT, AMYL, CMP, LIPA, PHOS ####[place] [address]#### TRANSF ####[place] [address] MCHC mass conc (RBC) 31.9 g/dL Normal 30.5-36.0 [facility] Comment on above: Performed By: #### P T, PTT, AMYL, CMP, LIPA, PHOS ####[place] [address]#### TRANSF ####[address] [phone] MCV 78.6 fL Low 80.0-100.0 [facility] Comment on above: Performed By: #### P T, PTT, AMYL, CMP, LIPA, PHOS ####[place] [address]#### TRANSF ####[phone] Monocytes/100 leukocytes 6.9 % Normal [facility] Comment on above: Performed By: #### P T, PTT, AMYL, CMP, LIPA, PHOS ####[place] [address]#### TRANSF ####[place] [address] Neutrophils/100 WBC Auto (Bld) 62.0 % Normal [facility] Comment on above: Performed By: #### P T, PTT, AMYL, CMP, LIPA, PHOS ####[place] [address]#### TRANSF ####[place] [phone] Platelet mean volume (PMV) 9.3 fL Normal 9.0-12.7 [facility] Comment on above: Performed By: #### P T, PTT, AMYL, CMP, LIPA, PHOS ####[place] [address]#### TRANSF ####[place] [phone] Platelets 421 10*3/uL High 150-400 [facility] Comment on above: Performed By: #### P T, PTT, AMYL, CMP, LIPA, PHOS ####[address] [place], [place] [phone]#### TRANSF ####[facility] [place], [place] [phone] WBC (Leukocytes) 5.80 10*3/uL Normal 3.70-11.00 [facility] Comment on above: Performed By: #### P T, PTT, AMYL, CMP, LIPA, PHOS ####[address] [phone]#### TRANSF ####[facility] [place], [place] [phone] CNDSon 10-09-2017 CNDS HNO ID: [id number] thor: Harmony (Georges) MichaelService: General SurgeryAuthor Type: ResidentType: Discharge SummariesFiled: 10/27/2017 12:15 PMNote Text:DISCHARGE SUMMARYPATIENT NAME: Rocio Jackson ADMISSION DATE: 09/30/2017MRN: [id number] DISCHARGE DATE: ATTENDING PHYSICIAN: Michael Jolley)REASON FOR [...] PATIENT: (To pull info documented from the [employer] Orderset Complete O/S First): No orders of [...] Glucose (mg/dL) is:Less than 110 Give 0 [id number] Give 0 -207 Give 2 ofavs358-157 Give 4 jyenn543-014 Give 6 ozoei328-941 Give 8 qcqgu554-685 Give 10 unitsGreater than 400 Give 10 [...] 20 mL by mouth once daily.Med Update, Ieej-ljdslydcwp-fivfabpi-arnulfo lase (CREON 24) 24,000-76,000 -120,000 unit cpDRTake [...] PCP: Adriane Nichols AppointmentsDate Time Provider Department Orange10/29/2017 1:30 PM Michael Jolley) [id number] CANDOR MCTIME OF CARE (Use first blank if not applicable): TIME OF CARE: DischargeManagement: I personally spent less than 30 minutes involved in thedischarge management of this patient.SIGNATURE: Harmony Rodriguez MD PATIENT NAME: Rocio JacksonDATE: October 27, 2017 : 12:12 PM PAGER/CONTACT #: [phone] Normal [facility] Comp Metabolic Panelon 10-09 Alanine aminotransferase (ALT) 26 U/L Normal 5-50 [facility] Comment on above: Performed By: #### P T, PTT, AMYL, CMP, LIPA, PHOS ####[facility] [place], [place] [phone]#### TRANSF ####[facility] [place], [place] [phone] Albumin 3.1 g/dL Low 3.5-5.0 [facility] Comment on above: Performed By: #### P T, PTT, AMYL, CMP, LIPA, PHOS ####[place] [address]#### TRANSF ####[place] [address] Alkaline phosphatase (ALP) 101 U/L Normal 40-150 [facility] Comment on above: Performed By: #### P T, PTT, AMYL, CMP, LIPA, PHOS ####[place] [address]#### TRANSF ####[place] [address] Anion gap 13 mmol/L Normal 9-18 [facility] Comment on above: Performed By: #### P T, PTT, AMYL, CMP, LIPA, PHOS ####[place] [address]#### TRANSF ####[place] [address] Aspartate aminotransferase (AST) 20 U/L Normal 7-40 [facility] Comment on above: Performed By: #### P T, PTT, AMYL, CMP, LIPA, PHOS ####[place] [address]#### TRANSF ####[place] [address] Bilirubin (total) 0.2 mg/dL Normal 0.0-1.5 [facility] Comment on above: Performed By: #### P T, PTT, AMYL, CMP, LIPA, PHOS ####[place] [address]#### TRANSF ####[place] [phone] Calcium 8.6 mg/dL Normal 8.5-10.5 [facility] Comment on above: Performed By: #### P T, PTT, AMYL, CMP, LIPA, PHOS ####[place] [address]#### TRANSF ####[place] [address] Chloride 101 mmol/L Normal 98-110 [facility] Comment on above: Performed By: #### P T, PTT, AMYL, CMP, LIPA, PHOS ####[place] [address]#### TRANSF ####[place] [address] CO2 24 mmol/L Normal 23-32 [facility] Comment on above: Performed By: #### P T, PTT, AMYL, CMP, LIPA, PHOS ####[place] [address]#### TRANSF ####[place] [address] Creatinine 0.51 mg/dL Low 0.70-1.40 [facility] Comment on above: Performed By: #### P T, PTT, AMYL, CMP, LIPA, PHOS ####[place] [address]#### TRANSF ####[place] [address] eGFR (non-black) mL/min/{1.73_m2} Normal >60 [facility] Comment on above: Performed By: #### P T, PTT, AMYL, CMP, LIPA, PHOS ####[place] [address]#### TRANSF ####[place] [address] Glucose mass conc 185 mg/dL High 65-100 [facility] Comment on above: Performed By: #### P T, PTT, AMYL, CMP, LIPA, PHOS ####[place] [address]#### TRANSF ####[place] [address] Potassium molar conc 3.7 mmol/L Normal 3.5-5.0 [facility] Comment on above: Performed By: #### P T, PTT, AMYL, CMP, LIPA, PHOS ####[place] [address]#### TRANSF ####[place] [address] Protein 6.5 g/dL Normal 6.0-8.4 [facility] Comment on above: Performed By: #### P T, PTT, AMYL, CMP, LIPA, PHOS ####[place] [address]#### TRANSF ####[place] [address] Sodium 138 mmol/L Normal 135-146 [facility] Comment on above: Performed By: #### P T, PTT, AMYL, CMP, LIPA, PHOS ####[place] [address]#### TRANSF ####[place] [address] Urea nitrogen 20 mg/dL Normal 10-25 [facility] Comment on above: Performed By: #### P T, PTT, AMYL, CMP, LIPA, PHOS ####[place] [address]#### TRANSF ####[place] [phone] NURSING PROGon 10-09-2017 NURSING PROG HNO ID: [id number] thor: Reggie (Rn) Clayton Sawantice: (none)Author Type: Registered NurseType: Nursing Progress NoteFiled: 10/09/2017 12:48 PMNote Text: Nursing Progress NotePatient Name: Rocio HayesN: [id number] [id number] ____Daily Note: Mr. Jackson up to chair most of shift thus far. Ambulated inhallway with use of walker and 1 staff. He is tolerating tube feed at40ml/hr with no nausea or vomiting. Patient also tolerating clear liquidswith increased intake today as compared to yesterday. Pain controlledwith scheduled Tylenol. [facility] today. Patient updated on plan to transfer to SNF and agreeable with plan. Calllight within reach. Will continue to monitor.This note was completed by: Reggie Sawant RN [facility] NURSING PROG HNO ID: [id number] thor: Renae Diaz (Rn) Clayton Paniaguaice: (none)Author Type: Registered NurseType: Nursing Progress NoteFiled: 10/09/2017 2:52 AMNote Text: Nursing Progress NotePatient Name: Rocio HayesN: [id number] [address]: [address][id number] ____ 2129 (late entry) Patient heart rate 119, when listening to apicalnoticed irregular rhythm and rate of 96. Patient denied chest pain ordiscomfort or SOB. residential youth counselor notified and telemetry ordered andapplied.2300 Patient seen by certified surgical tech/first assistant and no new orders received at thistime. [...] note was completed by: Renae Paniagua RN [facility] PLAN OF CAREon 10-09-2017 PLAN OF CARE HNO ID: [id number] thor: Miriam Britt (Civil Division Deputy Sheriff)Service: (none)Author Type: TechnicianType: Plan of CareFiled: 10/12/2017 9:54 AMNote Text: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 Patient to use [facility] Bedside Delivery - N/A2. If fax, patient would like us to fax prescriptions to [facility] a. Pharmacy: b. Location: c. Phone:3. Insurance card on file - N/A4. Credit card for payment - N/A [facility] PROGRESSon 10-09-2017 PROGRESS HNO ID: [id number] thor: Michael Cedillo) AugustinService: General SurgeryAuthor Type: PhysicianType: Progress NotesFiled: 10/09/2017 10:59 AMNote Text:SURGICAL SERVICES PROGRESS NOTENAME: Rocio JacksonMRN: [id number]: 10/09/2017Time: 8:16 JUDIE DATE: 09/30/20179 Days Post-OpProcedure(s) [...] on POD 3 nml, removed. Transferred to [facility]??Patient did well overnight with no acute issues [...] or distendedstomach/SB.- IPCs, SQH- Continue care on [facility]; Plan to discharge to SNF today pending CM/precertPHYSICAL EXAM:GENERAL: AOx3, NADLUNGS: Nonlabored breathingABDOMEN: Soft, non-distended, nontenderSKIN: Warm, well perfusedBP 151/83 Pulse 75 Temp 36.9 ?C (98.5 ?F) (Temporal Artery) Resp 18 Ht 172.7 cm (5' 7.99 ) Wt 88.8 kg (195 lb 12.3 oz) SpO2 96% BMI29.77 kg/l0Drszva/Output Summary (Last 24 hours) at 10/09/17 0952Last [...] 3.6 3.5Liver Function, Amylase, AND LipaseRecent Labs 6310/09/1803TPROT 6.5 6.7 6.6 7.3 < > 5.8*ALB 3.1* 3.3* 3.2* 3.4* < > 3.1*ALT 26 31 32 28 < > 46AST 20 25 30 23 < > 48*ALKPHOS 101 106 106 108 < > 91TBILI 0.2 0.2 0.2 0.2 < > 0.5LACT -- -- -- -- -- 2.3*< > = values in this interval not displayed.CoagsRecent Labs 9508/17/18073 620 094142GZKO 25.9 24.9 -- -- 39.8* 31.6INR 1.2 1.1 1.0 2.0* 2.0* 1.5*Salvador Birmingham, MDResident, PGY-1 - General SurgeryPager [phone] [facility] THERAPY NTon 10-09-2017 THERAPY NT HNO ID: [id number] thor: Alicia Sinhaervice: Occupational TherapyAuthor Type: Occupational TherapistType: Therapy (PT/OT/Speech/Resp)Filed: 10/09/2017 3:06 PMNote Text:OCCUPATIONAL THERAPY MISSED VISITSERVICE DATE: 10/09/2017SERVICE TIME: 1400 to 1400ROOM: [id number] Treatment. Patient not seen due to (being D/C this pm).SIGNATURE: WENDY Ramires/Timo PATIENT NAME: Rocio VizcarraTE: October 09, 2017 : 3:06 PM PAGER/CONTACT #:[phone] [facility] THERAPY NT HNO ID: [id number] thor: Saima Miranda (Cota)ervice: Occupational TherapyAuthor Type: Occupational Therapy AssistantType: Therapy (PT/OT/Speech/Resp)Filed: 10/09/2017 10:11 AMNote Text: -Attestation signed by Jacqueline Arshad at 10/09/2017 12:31 PMI reviewed and agree with the documentation corresponding to this therapyvisit.SIGNATURE: WENDY Chaparro/LDATE: October 09, 2017TIME: 12:31 PM OC CUPATIONAL THERAPY MISSED VISITSERVICE DATE: 10/09/2017SERVICE TIME: 1009 to 1009ROOM: [id number] Treatment. Patient not seen due to Sleeping. Nursing aware(Reggie)SIGNATURE: Saima TRACY Spencer PATIENT NAME: Rocio JacksonDATE: October 09, 2017 : 10:10 AM PAGER/CONTACT #:[phone] [facility] CASE MANAGEMon 10-08-2017 CASE MANAGEM HNO ID: [id number] thor: Clementina Culver (Lsw)uloService: Care ManagementAuthor Type: Social WorkerType: Care Mgt Progress NoteFiled: 10/08/2017 4:29 PMNote Text:MULTIDISCIPLINARY ROUNDSSERVICE DATE: 10/08/2017 ADMISSION DATE: 09/30/2017SERVICE TIME: 10:45 AM ANTICIPATED D/C DATE: 10/10/2017Problem List:ACTIVE PROBLEM LISTDuodenal ObstructionSevere Protein-Calorie Malnutrition (Hcc)Duodenal Cancer (Hcc)Attendees Present at Rounds:Pantry Goods Worker: Jasbiramily: yPatient: Rocio Shaikh Nurse: Laura Discussed on Rounds:DietDischarge NeedsFamily ConcernsMobilityPlan of CareAnticipated Discharge Disposition:Alf FacilityLast Vitals: BP 153/85 Pulse 90 Temp (Src) 97.9 (Oral) Resp 16 Ht5' 7.992 (1.73m) Wt 195 lb 12.3 oz (88.8kg) SpO2 97% BMI 29.77kg/(m2).Pt SNF vs [place]. Most likely SNFNursing:DOCUMENTED BY: TRACI Hammer PATIENT NAME: Rocio TorresdonnyDATE: October 08, 2017 : 4:27 PM CSN: [id number] [facility] CASE MANAGEM HNO ID: [id number] thor: Clementina Culver (Lsw)uloService: Care ManagementAuthor Type: Social WorkerType: Care Mgt Progress NoteFiled: 10/08/2017 4:37 PMNote Text:CARE MANAGEMENT PROGRESS NOTESERVICE DATE: 10/08/2017SERVICE TIME: 1:16 PM LOS: 8 daysNeeds Prior to Discharge: Precertification;Accepting Facility;Other: SeeComment (Pt and Pt sister [facility] not able to accept Pt AND feel Pt best suited for SNF. Familymet w Liaison from [facility] who is willing to accept although waitingon acceptance from 1st choice [place])CM phoned and left message inquiring on acceptance of Pt for intake -Denise Garcia.ADDENDUM: 1630: Per Paty at [facility] Pt Insurance is Out ofNetwork. CM met with Pt bedside. Pt sister present, CM discussedinsurance and Pt SNF choices. Per Pt he selects 2nd snf choice of [facility]. CM requested precert to begin.SIGNATURE: TRACI Hammer PATIENT NAME: Rocio TorresschDATE: October 08, 2017 : 1:16 PM PAGER/CONTACT #: [phone] [facility] CASE MANAGEM HNO ID: [id number] thor: Clementina Greenwood (Kael Guerrarvice: Care ManagementAuthor Type: Social WorkerType: Care Mgt [...] they select [facility] ([place]) CM spoke w/alina Sarabia [phone] in admission whowill review Pt to determine acceptance. [facility] CM sent referrals.SIGNATURE: TRACI Hammer PATIENT NAME: Rocio TorresdonnyDATE: October 08, 2017 : 9:08 AM PAGER/CONTACT #: [phone] [facility] CBC and Differentialon 10-08 Abs Baso <0.03 Normal <0.11 [facility] Comment on above: Performed By: #### P T, PTT, AMYL, CMP, LIPA, PHOS ####[place] [phone]#### TRANSF ####[facility] [id number] [place] [phone] Abs Lamar 0.38 k/uL Normal <0.87 [facility] Comment on above: Performed By: #### P T, PTT, AMYL, CMP, LIPA, PHOS ####[place] [phone]#### TRANSF ####[facility] Fabvnx[address]exkg[address]798 [place] [phone] Abs Neut 4.15 k/uL Normal 1.45-7.50 [facility] Comment on above: Performed By: #### P T, PTT, AMYL, CMP, LIPA, PHOS ####[place] [address]#### TRANSF ####[place] [phone] Basophils/100 WBC Auto (Bld) 0.3 % Normal [facility] Comment on above: Performed By: #### P T, PTT, AMYL, CMP, LIPA, PHOS ####[place] [address]#### TRANSF ####[place] [phone] DTYPE Auto Diff Normal [facility] Comment on above: Performed By: #### P T, PTT, AMYL, CMP, LIPA, PHOS ####[place] [address]#### TRANSF ####[place] [phone] Eosinophils 0.07 10*3/uL Normal <0.46 [facility] Comment on above: Performed By: #### P T, PTT, AMYL, CMP, LIPA, PHOS ####[place] [address]#### TRANSF ####[place] 8[address]174[address] Eosinophils/100 leukocytes 1.1 % Normal [facility] Comment on above: Performed By: #### P T, PTT, AMYL, CMP, LIPA, PHOS ####[place] [address]#### TRANSF ####[place] [phone] Erythrocyte distribution width Auto Ratio (RBC) 16.8 % High 11.5-15.0 [facility] Comment on above: Performed By: #### P T, PTT, AMYL, CMP, LIPA, PHOS ####[place] [address]#### TRANSF ####[place] [address] Erythrocytes (RBC) 3.72 10*6/uL Low 4.20-6.00 [facility] Comment on above: Performed By: #### P T, PTT, AMYL, CMP, LIPA, PHOS ####[place] [address]#### TRANSF ####[place] [address] Hematocrit (HCT) 29.5 % Low 39.0-51.0 [facility] Comment on above: Performed By: #### P T, PTT, AMYL, CMP, LIPA, PHOS ####[place] [address]#### TRANSF ####[place] [phone] Hemoglobin mass conc (Bld) 9.4 g/dL Low 13.0-17.0 [facility] Comment on above: Performed By: #### P T, PTT, AMYL, CMP, LIPA, PHOS ####[place] [address]#### TRANSF ####[place] [address] Lymphocytes 1.91 10*3/uL Normal 1.00-4.00 [facility] Comment on above: Performed By: #### P T, PTT, AMYL, CMP, LIPA, PHOS ####[place] [address]#### TRANSF ####[place] [address] Lymphocytes/100 leukocytes 29.2 % Normal [facility] Comment on above: Performed By: #### P T, PTT, AMYL, CMP, LIPA, PHOS ####[place] [address]#### TRANSF ####[place] [address] MCH 25.3 pG Low 26.0-34.0 [facility] Comment on above: Performed By: #### P T, PTT, AMYL, CMP, LIPA, PHOS ####[place] [address]#### TRANSF ####[place] [phone] MCHC mass conc (RBC) 31.9 g/dL Normal 30.5-36.0 [facility] Comment on above: Performed By: #### P T, PTT, AMYL, CMP, LIPA, PHOS ####[place] [address]#### TRANSF ####[place] [address] MCV 79.3 fL Low 80.0-100.0 [facility] Comment on above: Performed By: #### P T, PTT, AMYL, CMP, LIPA, PHOS ####[place] [address]#### TRANSF ####[place] [address] Monocytes/100 leukocytes 5.8 % Normal [facility] Comment on above: Performed By: #### P T, PTT, AMYL, CMP, LIPA, PHOS ####[place] [address]#### TRANSF ####[place] [phone] Neutrophils/100 WBC Auto (Bld) 63.6 % Normal [facility] Comment on above: Performed By: #### P T, PTT, AMYL, CMP, LIPA, PHOS ####[place] [address]#### TRANSF ####[place] [phone] Platelet mean volume (PMV) 9.3 fL Normal 9.0-12.7 [facility] Comment on above: Performed By: #### P T, PTT, AMYL, CMP, LIPA, PHOS ####[address]#### TRANSF ####[place] [phone] Platelets 370 10*3/uL Normal 150-400 [facility] Comment on above: Performed By: #### P T, PTT, AMYL, CMP, LIPA, PHOS ####[place] [address]#### TRANSF ####[place] [phone] WBC (Leukocytes) 6.53 10*3/uL Normal 3.70-11.00 [facility] Comment on above: Performed By: #### P T, PTT, AMYL, CMP, LIPA, PHOS ####[place] [phone]#### TRANSF ####[place] [phone] CONSULT PROGon 10-08-2017 CONSULT PROG HNO ID: [id number] thor: Damaris Rojasice: EndocrinologyAuthor Type: PhysicianType: Consult Progress NoteFiled: 10/09/2017 9:48 AMNote Text:ENDOCRINOLOGY PROGRESS NOTEPATIENT NAME: Rocio JacksonMRN: [id number] DATE: 10/08/2017SERVICE TIME: 5:27 PMREASON FOR CONSULT: [...] with pRBC on 10/02/2017 so obtaining a KfU2lhrd will not be helpful. He is receiving [...] Date- ANGIOPLASTY HX 05/15/2011 2 stents s/p [place];[facility]- CHOLECYSTECTOMY 08/11/2017 [facility]- PICC LINE INSERT/CONSULT 08/16/2017No family history on file.Social HistorySubstance Use Topics- Smoking status: Former Smoker Types: Cigarettes Quit date: 2010- Smokeless tobacco: Never Used- Alcohol use 1.5 oz/week 1 Cans of Beer (12oz) per week Comment: occasional beerCURRENT MEDICATION:Current Facility-Administered Medications:insulin glargine 10 Units injection (long acting) (LANTUS) 10 UnitsSUBCUTANEOUS AT BEDTIME Damaris Hitchcock 10 Units at 10/07/17 2100erythromycin ethyl succinate 200 mg oral liquid (E.E.S.) 200 mg ORAL wMEALS AND HS Allegra S (Pa) Miglionico 200 mg at 10/08/17 1625scopolamine 1 mg over 3 days 1 Patch (TRANSDERM-SCOP) 1 Patch TRANSDERMALq 72 HR Allegra S (Pa) Miglionico 1 Patch at 10/06/17 1100And[START ON 10/09/2017] scopolamine - REMOVE PATCH OTHER q 72 HR Allegra S(Pa) MiglionicoAndscopolamine - VERIFY patch OTHER q 8 H Allegra S (Pa) Miglionicoinsulin lispro injection (rapid acting) (HumaLOG) SUBCUTANEOUS q 6 HDorota Hitchcock 1 Units at 10/08/17 1351fentaNYL 50 mcg/mL 25 mcg injection (SUBLIMAZE) 25 mcg INTRAVENOUS q 4 HPRN Allegra S (Pa) Miglionicoacetaminophen 650 mg CUP (TYLENOL) 650 mg ORAL q 6 H Allegra S (Pa)Miglionico 650 mg at 10/08/17 1329oxyCODONE 5 mg oral liquid (ROXICODONE) 5 mg ORAL q 4 H PRN Yrn Cedillo)Gonzalo 5 mg at 10/07/17 0600hiuwpu-akbvhcwj-ehodwsc 2 capsule cap(s) (CREON 24) 2 capsule ORAL TID wMEALS Flynn (Res) MD Jane 2 capsule at 10/08/17 0830phenol 1 Hodges (CHLORASEPTIC) 1 Hodges MUCOUS MEMBRANE (TOPICAL MOUTH ANDTHROAT) q 2 H PRN Kolby (Res) Kevin 1 Hodges at 10/02/17 06058.9% NaCl 2-10 mL 2-10 mL INTRAVENOUS q [...] lb 12.3 oz) SpO2 97% BMI 29.77 kg/a7Otyhdrx: Well appearing, sleeping, in no acute distress.Skin: [...] 178 (A) H210/08/2017 5:44 AM 172 (A) 21/06/2018 1:17 PM 199 (A) [id number] Latest Ref Rng AND Units 10/07/2017 10/08/2017 [...] MDDATE: October 08, 2017TIME: 5:27 PM Normal [facility] Comp Metabolic Panelon 10-08 Alanine aminotransferase (ALT) 31 U/L Normal 5-50 [facility] Comment on above: Performed By: #### P T, PTT, AMYL, CMP, LIPA, PHOS ####[place] [address]#### TRANSF ####[place] [phone] Albumin 3.3 g/dL Low 3.5-5.0 [facility] Comment on above: Performed By: #### P T, PTT, AMYL, CMP, LIPA, PHOS ####[place] [address]#### TRANSF ####[place] [phone] Alkaline phosphatase (ALP) 106 U/L Normal 40-150 [facility] Comment on above: Performed By: #### P T, PTT, AMYL, CMP, LIPA, PHOS ####[place] [address]#### TRANSF ####[place] [phone] Anion gap 13 mmol/L Normal 9-18 [facility] Comment on above: Performed By: #### P T, PTT, AMYL, CMP, LIPA, PHOS ####[place] [address]#### TRANSF ####[place] [address] Aspartate aminotransferase (AST) 25 U/L Normal 7-40 [facility] Comment on above: Performed By: #### P T, PTT, AMYL, CMP, LIPA, PHOS ####[place] [address]#### TRANSF ####[place] [address] Bilirubin (total) 0.2 mg/dL Normal 0.0-1.5 [facility] Comment on above: Performed By: #### P T, PTT, AMYL, CMP, LIPA, PHOS ####[place] [address]#### TRANSF ####[place] [phone] Calcium 8.8 mg/dL Normal 8.5-10.5 [facility] Comment on above: Performed By: #### P T, PTT, AMYL, CMP, LIPA, PHOS ####[place] [address]#### TRANSF ####[place] [address] Chloride 102 mmol/L Normal 98-110 [facility] Comment on above: Performed By: #### P T, PTT, AMYL, CMP, LIPA, PHOS ####[place] [address]#### TRANSF ####[place] [phone] CO2 26 mmol/L Normal 23-32 [facility] Comment on above: Performed By: #### P T, PTT, AMYL, CMP, LIPA, PHOS ####[place] [address]#### TRANSF ####[place] [address] Creatinine 0.55 mg/dL Low 0.70-1.40 [facility] Comment on above: Performed By: #### P T, PTT, AMYL, CMP, LIPA, PHOS ####[place] [address]#### TRANSF ####[place] [address] eGFR (non-black) mL/min/{1.73_m2} Normal >60 [facility] Comment on above: Performed By: #### P T, PTT, AMYL, CMP, LIPA, PHOS ####[place] [address]#### TRANSF ####[place] [address] Glucose mass conc 152 mg/dL High 65-100 [facility] Comment on above: Performed By: #### P T, PTT, AMYL, CMP, LIPA, PHOS ####[place] [address]#### TRANSF ####[place] [address] Potassium molar conc 3.8 mmol/L Normal 3.5-5.0 [facility] Comment on above: Performed By: #### P T, PTT, AMYL, CMP, LIPA, PHOS ####[place] [address]#### TRANSF ####[place] [address] Protein 6.7 g/dL Normal 6.0-8.4 [facility] Comment on above: Performed By: #### P T, PTT, AMYL, CMP, LIPA, PHOS ####[place] [address]#### TRANSF ####[place] [address] Sodium 141 mmol/L Normal 135-146 [facility] Comment on above: Performed By: #### P T, PTT, AMYL, CMP, LIPA, PHOS ####[place] [address]#### TRANSF ####[place] [address] Urea nitrogen 18 mg/dL Normal 10-25 [facility] Comment on above: Performed By: #### P T, PTT, AMYL, CMP, LIPA, PHOS ####[facility] [place], [place] [phone]#### TRANSF ####[facility] [place], [place] [phone] NURSING PROGon 10-08-2017 NURSING PROG HNO ID: [id number] thor: Reggie KenRn) Clayton Sawantice: (none)Author Type: Registered NurseType: Nursing Progress NoteFiled: 10/08/2017 8:55 AMNote Text: Nursing Progress NotePatient Name: Rocio Boudreaux: [id number] Location: [place] [address]/[id number] ____Daily Note: Mr. Jackson awake and alert [...] note was completed by: Reggie Sawant RN [facility] PROGRESSon 10-08-2017 PROGRESS HNO ID: [id number] thor: Salvaodr (Celina Dominguezice: General SurgeryAuthor Type: ResidentType: Progress NotesFiled: 10/08/2017 9:38 AMNote Text:SURGICAL SERVICES PROGRESS NOTENAME: Rocio VenturaPETRONA: [id number]: 10/08/2017Time: 8:16 JUDIE DATE: 09/30/20178 Days Post-OpProcedure(s) [...] on POD 3 nml, removed. Transferred to [facility]??Patient did well overnight with no acute issues [...] ac/hsfor DGE- IPCs, SQH- Continue care on [facility]; will continue dispo planning for SNF todayPHYSICAL EXAM:GENERAL: AOx3, NADLUNGS: Nonlabored breathingABDOMEN: Soft, non-distended, nontenderSKIN: Warm, well perfusedBP 152/78 Pulse 73 Temp 37.3 ?C (99.1 ?F) (Oral) Resp 16 Ht 172.7cm (5' 7.99 ) Wt 88.8 kg (195 lb 12.3 oz) SpO2 97% BMI 29.77 kg/m9Xableu/Output Summary (Last 24 hours) at 10/08/17 0936Last [...] values in this interval not displayed.CoagsRecent Labs 09/24/1808032000CHRH 25.9 24.9 -- -- 39.8* 31.6INR 1.2 1.1 1.0 2.0* 2.0* 1.5*Poonam Fisher, PGY-1 - General SurgeryPast. mary[facility] [address] [facility] ALLIED HEALTHon 10-07-2017 ALLIED HEALTH HNO ID: [id number] thor: Allegra (Rt) Sally Espitiae: RadiologyAuthor Type: TechnicianType: Allied HealthFiled: 10/07/2017 12:43 PMNote Text: Radiology Service Progress NotePATIENT NAME: Rocio Boudreaux: [id number] OF SERVICE: October 07, 2017TIME: 12:42 PMPATIENT IDENTITY VERIFICATION COMPLETED USING TWO (2) METHODS: Patientconfirmed name verbally and ID band matches..PATIENT GENDER DATA: MalePATIENT RELEVANT IMPLANT DATA REVIEWED: Not ApplicableRADIOLOGY DEPARTMENT: General X-ray: Exam(s) Completed: Chest X-RayAbdomen X-Ray Abdomen Supine / AP ErectPERIPHERAL IV DATA: Not applicableSIGNED BY: Omkar Dinh RTApril 2017 12:42 PM [facility] CASE MANAGEMon 10-07-2017 CASE MANAGEM HNO ID: [id number] thor: Clementina Culver (Lsw)uloService: Care ManagementAuthor Type: [...] ratings. Pt and sisters [facility]eto [facility]. Per Pt and sisters they would like toreview list and facilities and provided choices in the morning. CMdiscussed w/nursing.SIGNATURE: TRACI Hammer PATIENT NAME: Rociomarisa JacksonDATE: October 07, 2017 : 12:32 PM PAGER/CONTACT #: [phone] [facility] CBC and Differentialon 10-07 Abs Baso <0.03 Normal <0.11 [facility] Comment on above: Performed By: #### P T, PTT, AMYL, CMP, LIPA, PHOS ####[facility] [place], [place] [phone]#### TRANSF ####[facility] [place] [address] [phone] Abs Lamar 0.49 k/uL Normal <0.87 [facility] Comment on above: Performed By: #### P T, PTT, AMYL, CMP, LIPA, PHOS ####[place] [address]#### TRANSF ####[place] [address] Abs Neut 4.36 k/uL Normal 1.45-7.50 [facility] Comment on above: Performed By: #### P T, PTT, AMYL, CMP, LIPA, PHOS ####[place] [address]#### TRANSF ####[place] [address] Basophils/100 WBC Auto (Bld) 0.1 % Normal [facility] Comment on above: Performed By: #### P T, PTT, AMYL, CMP, LIPA, PHOS ####[place] [address]#### TRANSF ####[place] [address] DTYPE Auto Diff Normal [facility] Comment on above: Performed By: #### P T, PTT, AMYL, CMP, LIPA, PHOS ####[place] [address]#### TRANSF ####[place] [address] [place] [address] Eosinophils 0.04 10*3/uL Normal <0.46 [facility] Comment on above: Performed By: #### P T, PTT, AMYL, CMP, LIPA, PHOS ####[place] [address]#### TRANSF ####[place] [address] [address] [place] [phone] Eosinophils/100 leukocytes 0.6 % Normal [facility] Comment on above: Performed By: #### P T, PTT, AMYL, CMP, LIPA, PHOS ####[place] [address]#### TRANSF ####[place] [address] Erythrocyte distribution width Auto Ratio (RBC) 16.8 % High 11.5-15.0 [facility] Comment on above: Performed By: #### P T, PTT, AMYL, CMP, LIPA, PHOS ####[place] [address]#### TRANSF ####[place] [address] Erythrocytes (RBC) 3.55 10*6/uL Low 4.20-6.00 [facility] Comment on above: Performed By: #### P T, PTT, AMYL, CMP, LIPA, PHOS ####[place] [address]#### TRANSF ####[place] [address] Hematocrit (HCT) 28.9 % Low 39.0-51.0 [facility] Comment on above: Performed By: #### P T, PTT, AMYL, CMP, LIPA, PHOS ####[place] [address]#### TRANSF ####[place] [address] Hemoglobin mass conc (Bld) 8.9 g/dL Low 13.0-17.0 [facility] Comment on above: Performed By: #### P T, PTT, AMYL, CMP, LIPA, PHOS ####[place] [address]#### TRANSF ####[place] [address] Lymphocytes 1.89 10*3/uL Normal 1.00-4.00 [facility] Comment on above: Performed By: #### P T, PTT, AMYL, CMP, LIPA, PHOS ####[place] [address]#### TRANSF ####[place] [address] Lymphocytes/100 leukocytes 27.8 % Normal [facility] Comment on above: Performed By: #### P T, PTT, AMYL, CMP, LIPA, PHOS ####[place] [address]#### TRANSF ####[place] [address] MCH 25.1 pG Low 26.0-34.0 [facility] Comment on above: Performed By: #### P T, PTT, AMYL, CMP, LIPA, PHOS ####[place] [address]#### TRANSF ####[place] [address] MCHC mass conc (RBC) 30.8 g/dL Normal 30.5-36.0 [facility] Comment on above: Performed By: #### P T, PTT, AMYL, CMP, LIPA, PHOS ####[place] [address]#### TRANSF ####[place] [address] MCV 81.4 fL Normal 80.0-100.0 [facility] Comment on above: Performed By: #### P T, PTT, AMYL, CMP, LIPA, PHOS ####[place] [address]#### TRANSF ####[place] [phone] Monocytes/100 leukocytes 7.2 % Normal [facility] Comment on above: Performed By: #### P T, PTT, AMYL, CMP, LIPA, PHOS ####[place] [address]2456[address]#### TRANSF ####[place] [phone] Neutrophils/100 WBC Auto (Bld) 64.3 % Normal [facility] Comment on above: Performed By: #### P T, PTT, AMYL, CMP, LIPA, PHOS ####[place] [phone]#### TRANSF ####[place] [phone] Platelet mean volume (PMV) 9.2 fL Normal 9.0-12.7 [facility] Comment on above: Performed By: #### P T, PTT, AMYL, CMP, LIPA, PHOS ####[address]#### TRANSF ####[place] [phone] Platelets 329 10*3/uL Normal 150-400 [facility] Comment on above: Performed By: #### P T, PTT, AMYL, CMP, LIPA, PHOS ####[place] [address]#### TRANSF ####[place] [phone] WBC (Leukocytes) 6.79 10*3/uL Normal 3.70-11.00 [facility] Comment on above: Performed By: #### P T, PTT, AMYL, CMP, LIPA, PHOS ####[phone]#### TRANSF ####[place] [phone] Comp Metabolic Panelon 10-07 Alanine aminotransferase (ALT) 32 U/L Normal 5-50 [facility] Comment on above: Performed By: #### P T, PTT, AMYL, CMP, LIPA, PHOS ####[place] [address]#### TRANSF ####[place] [address] Albumin 3.2 g/dL Low 3.5-5.0 [facility] Comment on above: Performed By: #### P T, PTT, AMYL, CMP, LIPA, PHOS ####[place] [address]#### TRANSF ####[place] [address] Alkaline phosphatase (ALP) 106 U/L Normal 40-150 [facility] Comment on above: Performed By: #### P T, PTT, AMYL, CMP, LIPA, PHOS ####[place] [address]#### TRANSF ####[place] [address] Anion gap 11 mmol/L Normal 9-18 [facility] Comment on above: Performed By: #### P T, PTT, AMYL, CMP, LIPA, PHOS ####[place] [address]#### TRANSF ####[address] Aspartate aminotransferase (AST) 30 U/L Normal 7-40 [facility] Comment on above: Performed By: #### P T, PTT, AMYL, CMP, LIPA, PHOS ####[place] [address]#### TRANSF ####[place] [address] Bilirubin (total) 0.2 mg/dL Normal 0.0-1.5 [facility] Comment on above: Performed By: #### P T, PTT, AMYL, CMP, LIPA, PHOS ####[place] [address]#### TRANSF ####[place] [address] Calcium 8.8 mg/dL Normal 8.5-10.5 [facility] Comment on above: Performed By: #### P T, PTT, AMYL, CMP, LIPA, PHOS ####[place] [address]#### TRANSF ####[place] [address] Chloride 104 mmol/L Normal 98-110 [facility] Comment on above: Performed By: #### P T, PTT, AMYL, CMP, LIPA, PHOS ####[place] [address]#### TRANSF ####[place] [address] CO2 27 mmol/L Normal 23-32 [facility] Comment on above: Performed By: #### P T, PTT, AMYL, CMP, LIPA, PHOS ####[place] [address]#### TRANSF ####[place] [phone] Creatinine 0.60 mg/dL Low 0.70-1.40 [facility] Comment on above: Performed By: #### P T, PTT, AMYL, CMP, LIPA, PHOS ####[place] [address]#### TRANSF ####[phone] eGFR (non-black) mL/min/{1.73_m2} Normal >60 [facility] Comment on above: Performed By: #### P T, PTT, AMYL, CMP, LIPA, PHOS ####[place] [address]#### TRANSF ####[place] [address] Glucose mass conc 175 mg/dL High 65-100 [facility] Comment on above: Performed By: #### P T, PTT, AMYL, CMP, LIPA, PHOS ####[address]#### TRANSF ####[place] [address] Potassium molar conc 4.1 mmol/L Normal 3.5-5.0 [facility] Comment on above: Performed By: #### P T, PTT, AMYL, CMP, LIPA, PHOS ####[address]#### TRANSF ####[place] [address] Protein 6.6 g/dL Normal 6.0-8.4 [facility] Comment on above: Performed By: #### P T, PTT, AMYL, CMP, LIPA, PHOS ####[address]#### TRANSF ####[place] [address] Sodium 142 mmol/L Normal 135-146 [facility] Comment on above: Performed By: #### P T, PTT, AMYL, CMP, LIPA, PHOS ####[place] [address]#### TRANSF ####[place] [address] Urea nitrogen 20 mg/dL Normal 10-25 [facility] Comment on above: Performed By: #### P T, PTT, AMYL, CMP, LIPA, PHOS ####[place] [address]#### TRANSF ####[place] [address] Magnesiumon 10-07-2017 Magnesium 2.0 mg/dL Normal 1.7-2.6 [facility] Comment on above: Performed By: #### P T, PTT, AMYL, CMP, LIPA, PHOS ####[place] [address]#### TRANSF ####[place] [phone] NURSING PROGon 10-07-2017 NURSING PROG HNO ID: [id number] thor: Kevin (Rn) Shanell, RNService: (none)Author Type: Registered NurseType: Nursing Progress NoteFiled: 10/07/2017 9:41 PMNote Text: Nursing Progress NotePatient Name: Rocio TorresBryannaN: [id number] Location: [place] [address]/TY-[id number] ____Daily Note:Pt medicated per AUG. Pt AANDO x3. Pt with minimal pain- Administeredscheduled Tyl per orders. No SOB or headache. IV capped per orders. RUQdrain clamped per orders. 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 No further needs. Call werner within reach.This note was completed by: KEVIN WALKER RN [facility] NURSING PROG HNO ID: [id number] thor: Saima KenRn) Clayton Richardsonice: (none)Author Type: Registered NurseType: Nursing Progress NoteFiled: 10/07/2017 6:57 PMNote Text: Nursing Progress NotePatient Name: Rocio JacksonN: [id number] [address]: [address]UF9U[address]43 ____Daily Note:Pt resting in the bed and [...] take anypills.This note was completed by: Saima Richardson, KEVIN [facility] NURSING PROG HNO ID: [id number] thor: Kevin KenRn) MOUSTAPHA Walkerervice: (none)Author Type: Registered NurseType: Nursing Progress NoteFiled: 10/07/2017 1:21 AMNote Text: Nursing Progress NotePatient Name: Rocio JacksonN: [id number] Location: [place] [address]/YA-QP8M-35 ____Daily Note:2330- Took over care for pt. Pt assessed. Pt medicated per AUG. Pt AANDO x3.Pt with minimal pain- Administered scheduled Tyl per orders. No SOB orheadache. IV capped per orders. RUQ drain clamped per orders. Corpak withtube feed infusing per orders. Incision to abdomen- ADELA- C,D,I. No furtherneeds. Call werner within reach.This note was completed by: KEVIN WALKER RN [facility] PLAN OF CAREon 10-07-2017 PLAN OF CARE HNO ID: [id number] thor: Macie Cruz (Pharmacist)Service: PharmacyAuthor Type: PharmacistType: Plan of CareFiled: 10/07/2017 2:09 PMNote Text:MEDICATION HISTORY AND MEDICATION RECONCILIATIONPatient Name:Destiney VenturaN: [id number]: 1955Source of history:Family: Reliability of source: Appears reliable,clearly identified: Medication name, Medication dose, Medication route,Medication frequency and IndicationsMedication Nonadherence Identified: No barriers notedThe above information represents the best possible medication history: YesReconciliation completed? Yes All JOB PLACEMENT COUNSELOR medications addressed by LIPAdditional comments: N/AAllergies: ALLERGIESNo Known AllergiesCurrent JOB PLACEMENT COUNSELOR Medications:Prior to Admission medications as of 10/07/17 [...] Take by mouth once daily. 09/29/2017 at 0900YeHIPatricia Garcia 2017 2:09 PM [facility] PROGRESSon 10-07-2017 PROGRESS HNO ID: [id number] thor: [facility] (Georges) Rondae: General SurgeryAuthor Type: ResidentType: Progress NotesFiled: 10/07/2017 8:27 AMNote Text:SURGICAL SERVICES PROGRESS NOTENAME: Rocio JacksonMRN: [id number]: 10/07/2017Time: 8:16 JUDIE DATE: 09/30/20177 Days Post-OpProcedure(s) [...] on POD 3 nml, removed. Transferred to [facility]??Patient did well overnight with no acute issues [...] ac/hsfor DGE- IPCs, SQH- Continue care on [facility]; will begin disposition planning todayPHYSICAL EXAM:GENERAL: AOx3, NADLUNGS: Nonlabored breathingABDOMEN: Soft, non-distendedSKIN: Warm, well perfusedBP 147/79 Pulse 63 Temp 37.3 ?C (99.1 ?F) (Oral) Resp 16 Ht 172.7cm (5' 7.99 ) Wt 88.8 kg (195 lb 12.3 oz) SpO2 97% BMI 29.77 kg/m2Date 10/06/17 07 - 10/07/17 0659 10/07/17 07 - 10/08/17 0659Shift 6485-5765 6797-0376 5817-1567 24 Hour Total 6145-4805 8458-17873772-0540 24 Hour TotalINTAKE PO 956 956 Tube Feed Intake (GI Feed/Drain 09/30/17 Small Bore Feeding Right Naris10 Fr) 956 956 Irrigants 5 5 100 110 Irrigant/Flush Amount In (Drain/Tube 08/27/17 Admission to HospitalRight Upper Quadrant Abdomen Drain #3) 5 5 10 Irrigant/Flush Amount In (GI Feed/Drain 09/30/17 Small Bore FeedingRight Naris 10 Fr) 100 100 Shift Total 5 5 1056 1066OUTPUT Urine 400 743 937 5990 Void (ml) 400 162 560 7517 Emesis 150 150 Emesis (ml) 150 150 [...] 10/07/2017Bilirubin, Total 0.2 10/07/2017AST 30 10/07/2017ALT 32 10/07/2017MATI Mejia II general surgery 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 [id number] [facility] PT EDon 10-07-2017 PT ED HNO ID: [id number] thor: Macie Cruz (Pharmacist)Service: PharmacyAuthor Type: PharmacistType: Patient EducationFiled: 10/07/2017 2:13 PMNote Text:Clinical Pharmacy ServicesHigh Risk: Daily Medication AssessmentPatient Name: Rociomarisa HayesN: [id number] Date: 09/30/2017Service Date and Time: 10/07/2017 2:12 PMNew MedicationsThe following medications have been started since last pharmacy review:naloxone, oxycodone, chloraceptic, scopolamineMedication education has been completed: YesSignature: Macie Cruz PharmacistFairview: [phone]: [phone] [facility] PT ED HNO ID: [id number] thor: Macie Cruz (Pharmacist)Service: PharmacyAuthor Type: PharmacistType: Patient EducationFiled: 10/07/2017 2:12 PMNote Text:Clinical Pharmacy ServicesHigh Risk: Daily Medication AssessmentPatient Name: Rocio HayesN: [id number] Date: 09/30/2017Service Date and Time: 10/07/2017 2:11 PMNew MedicationsThe following medications have been started since last pharmacy review:lantus, humalog, creon, magnesium, metoclopramideMedication education has been completed: YesSignature: Macie Cruz PharmacistFairview: [phone]: [phone] [facility] PT ED HNO ID: [id number] thor: Macie Cruz (Pharmacist)Service: PharmacyAuthor Type: PharmacistType: Patient EducationFiled: 10/07/2017 2:11 PMNote Text:Clinical Pharmacy ServicesHigh Risk: Daily Medication AssessmentPatient Name: Rocio Boudreaux: [id number] Date: 09/30/2017Service Date and Time: 10/07/2017 2:10 PMNew MedicationsThe following medications have been started since last pharmacy review:dextrose, glucagon, erythromycin, fentanyl, heparinMedication education has been completed: YesSignature: Macie Cruz PharmacistFairview: [phone]: [phone] Normal [facility] Phosphoruson 10-07-2017 Phosphate 3.0 mg/dL Normal 2.5-4.5 [facility] Comment on above: Performed By: #### P T, PTT, AMYL, CMP, LIPA, PHOS ####[facility] [place], [place] [phone]#### TRANSF ####[facility] [address], [place] [phone] THERAPY NTon 10-07-2017 THERAPY NT HNO ID: [id number] thor: Adela Holcomb) Jhonatane: Physical TherapyAuthor Type: Physical Therapy AssistantType: Therapy (PT/OT/Speech/Resp)Filed: 10/07/2017 11:18 AMNote Text: -Attestation signed by Tonia Schmitz at 10/07/2017 12:03 PMI reviewed and agree with the documentation corresponding to this therapyvisit.SIGNATURE: Tonia Schmitz, PTDATE: October 07, 2017TIME: 12:03 PM Ph ysical Therapy TreatmentSERVICE DATE: 10/07/2017SERVICE TIME: 1000 to 1025ROOM: [id number]/p Debra procedureRecommended Discharge Disposition: Home PTRecommended Discharge Disposition Comments: (pt to return to [place] )Justification For Post Acute Needs: Willing toparticipate;Motivated;Destinee [...] sister present [facility] PT follow up. [...] l symptoms and signs-otherInterventions Provided: Therapeutic Exercise (85951);Gait Training (99931)Therapeutic Exercise (52784) Treatment Minutes: 101 unitSkilled Intervention(s): Instruction in therapeutic exercise in sittingposition for B LE strengtheningVerbal and tactile cuing provided for performance and pace.Gait Training (55089) Treatment Minutes: 151 unitSkilled Intervention(s): Instruction in [...] mobility assessmentRelevant Past Medical History: HTN, DM, [place], richelle 08/11/17, ARF, refer tochart for full [...] has assist with all IADLs. Works in [employer]. Amb Ind.OBJECTIVE:Mini Cog Score: 1 (10/02/17 0820)CURRENT [...] Adela Leong PTA PATIENT NAME: Rocio JacksonDATE: October 07, 2017 : 11:15 AM PAGER/CONTACT #: [phone] [facility] XR ABD 2V SUPINE W UPR/DECUB [...] 07 2017 1:02PDictated by : RENATE MACK MDThimilly examination was interpreted and the report reviewed and electronically signed by: RENATE MACK MD on Oct 07 2017 1:03PM [id number] [facility] XR CHEST 1V FRONTALon 2017 XR [...] silhouette: Normal cardiomediastinal silhouette.Other: .IMPRESSION:No acute radiographic abnormality.Medical Historian : PSCShefali Transcribe Date/Time: Oct 07 2017 12:50PDictated by : Elisa JEFF examination was interpreted and the report reviewed and electronically signed by: RENATE MACK MD on Oct 07 2017 1:02PM [id number] [facility] ALLIED HEALTHon 10-06-2017 ALLIED HEALTH HNO ID: [id number] thor: Lea Santoyo (Rt): RadiologyAuthor Type: TechnicianType: Allied HealthFiled: 10/06/2017 6:41 AMNote Text: Radiology Service Progress NotePATIENT NAME: Rocio TorresDary: [id number] OF SERVICE: October 06, 2017TIME: 6:34 AMPATIENT IDENTITY VERIFICATION COMPLETED USING TWO (2) METHODS: Patientconfirmed name verbally and ID band matches..PATIENT GENDER DATA: MalePATIENT RELEVANT IMPLANT DATA REVIEWED: Not ApplicableRADIOLOGY DEPARTMENT: General X-ray: Exam(s) Completed: Abdomen X-RayAbdomenPERIPHERAL IV DATA: Not applicableSIGNED BY: Quique Santoyo 2017 6:41 AM [facility] CASE MANAGEMon 10-06-2017 CASE MANAGEM HNO ID: [id number] thor: Norberto Mena (Sw): Care ManagementAuthor Type: Social WorkerType: Care Mgt Progress NoteFiled: 10/06/2017 12:29 PMNote Text:MULTIDISCIPLINARY ROUNDSSERVICE DATE: 10/06/2017 ADMISSION DATE: 09/30/2017SERVICE TIME: 12:27 PM ANTICIPATED D/C DATE: 10/07/2017Problem List:ACTIVE PROBLEM LISTDuodenal ObstructionSevere Protein-Calorie Malnutrition (Hcc)Duodenal Cancer (Hcc)Attendees Present at Rounds:Pantry Goods Worker:Nurse Plant Custodian/Theology Professor Nurse Plant Custodian:Boiler Tube Reamer:Staff Nurse:Needs Discussed on Rounds:Discharge NeedsAnticipated Discharge Disposition:Home with Home Health CareLast Vitals: BP 132/80 Pulse 79 Temp (Src) 98.7 (Oral) Resp 16 Ht5' 7.992 (1.73m) Wt 195 lb 12.3 oz (88.8kg) SpO2 96% BMI 29.77kg/(m2).Pt plans on going to his sister's house at d/c. [facility] PTAand would like them again at d/c. [...] 10/08/17DOCUMENTED BY: MARINO Lopez PATIENT NAME: Rocio JacksonDATE: October 06, 2017 : 12:27 PM CSN: [id number] Normal [facility] CBC and Differentialon 10-06 Abs Baso <0.03 Normal <0.11 [facility] Comment on above: Performed By: #### P T, PTT, AMYL, CMP, LIPA, PHOS ####[address]#### TRANSF ####[place] [address] Abs Lamar 0.46 k/uL Normal <0.87 [facility] Comment on above: Performed By: #### P T, PTT, AMYL, CMP, LIPA, PHOS ####[place] [address]#### TRANSF ####[place] [address] Abs Neut 4.56 k/uL Normal 1.45-7.50 [facility] Comment on above: Performed By: #### P T, PTT, AMYL, CMP, LIPA, PHOS ####[place] [address]#### TRANSF ####[place] [address] Basophils/100 WBC Auto (Bld) 0.1 % Normal [facility] Comment on above: Performed By: #### P T, PTT, AMYL, CMP, LIPA, PHOS ####[place] [address]#### TRANSF ####[place] [address] DTYPE Auto Diff Normal [facility] Comment on above: Performed By: #### P T, PTT, AMYL, CMP, LIPA, PHOS ####[place] [address]#### TRANSF ####[place] [phone] Eosinophils 0.03 10*3/uL Normal <0.46 [facility] Comment on above: Performed By: #### P T, PTT, AMYL, CMP, LIPA, PHOS ####[place] [address]#### TRANSF ####[place] [address] Eosinophils/100 leukocytes 0.4 % [facility] Comment on above: Performed By: #### P T, PTT, AMYL, CMP, LIPA, PHOS ####[place] [address]#### TRANSF ####[place] [phone] Erythrocyte distribution width Auto Ratio (RBC) 16.5 % High 11.5-15.0 [facility] Comment on above: Performed By: #### P T, PTT, AMYL, CMP, LIPA, PHOS ####[place] [address]#### TRANSF ####[place] [phone] Erythrocytes (RBC) 3.91 10*6/uL Low 4.20-6.00 [facility] Comment on above: Performed By: #### P T, PTT, AMYL, CMP, LIPA, PHOS ####[place] [address]#### TRANSF ####[place] [phone] Hematocrit (HCT) 31.3 % Low 39.0-51.0 [facility] Comment on above: Performed By: #### P T, PTT, AMYL, CMP, LIPA, PHOS ####[place] [address]#### TRANSF ####[place] [phone] Hemoglobin mass conc (Bld) 10.0 g/dL Low 13.0-17.0 [facility] Comment on above: Performed By: #### P T, PTT, AMYL, CMP, LIPA, PHOS ####[place] [address]#### TRANSF ####[place] [phone] Lymphocytes 1.97 10*3/uL Normal 1.00-4.00 [facility] Comment on above: Performed By: #### P T, PTT, AMYL, CMP, LIPA, PHOS ####[place] [address]#### TRANSF ####[place] [phone] Lymphocytes/100 leukocytes 28.0 % Normal [facility] Comment on above: Performed By: #### P T, PTT, AMYL, CMP, LIPA, PHOS ####[place] [address]#### TRANSF ####[place] [address] MCH 25.6 pG Low 26.0-34.0 [facility] Comment on above: Performed By: #### P T, PTT, AMYL, CMP, LIPA, PHOS ####[place] [address]#### TRANSF ####[place] [phone] MCHC mass conc (RBC) 31.9 g/dL Normal 30.5-36.0 [facility] Comment on above: Performed By: #### P T, PTT, AMYL, CMP, LIPA, PHOS ####[place] [address]#### TRANSF ####[place] [address] MCV 80.1 fL Normal 80.0-100.0 [facility] Comment on above: Performed By: #### P T, PTT, AMYL, CMP, LIPA, PHOS ####[place] [address]#### TRANSF ####[place] [address] Monocytes/100 leukocytes 6.5 % Normal [facility] Comment on above: Performed By: #### P T, PTT, AMYL, CMP, LIPA, PHOS ####[place] [address]#### TRANSF ####[place] [address] Neutrophils/100 WBC Auto (Bld) 65.0 % Normal [facility] Comment on above: Performed By: #### P T, PTT, AMYL, CMP, LIPA, PHOS ####[place] [address]#### TRANSF ####[place] [phone] Platelet mean volume (PMV) 9.2 fL Normal 9.0-12.7 [facility] Comment on above: Performed By: #### P T, PTT, AMYL, CMP, LIPA, PHOS ####[place] [address]#### TRANSF ####[place] [phone] Platelets 358 10*3/uL Normal 150-400 [facility] Comment on above: Performed By: #### P T, PTT, AMYL, CMP, LIPA, PHOS ####[place] [address]#### TRANSF ####[place] [phone] WBC (Leukocytes) 7.03 10*3/uL Normal 3.70-11.00 [facility] Comment on above: Performed By: #### P T, PTT, AMYL, CMP, LIPA, PHOS ####[place] [address]#### TRANSF ####[phone] CONSULT PROGon 10-06-2017 CONSULT PROG HNO ID: [id number] thor: Damaris Rojasice: EndocrinologyAuthor Type: PhysicianType: Consult Progress NoteFiled: 10/06/2017 5:16 PMNote Text:ENDOCRINOLOGY PROGRESS NOTEPATIENT NAME: Rocio JacksonN: [id number] DATE: 10/06/2017SERVICE TIME: 5:07 PMREASON FOR CONSULT: [...] with pRBC on 10/02/2017 so obtaining a KnU1ahyg will not be helpful. Low dose Lantus was started yesterday. Bloodglucose in the 200 mg/dL range today. Patient is sleeping when I visithim today with family by bedside.PAST MEDICAL HISTORYDiagnosis Date- Bleeding ulcer 11/15/2016 required 5 blood transfusions- Diabetes mellitus (HCC) 2016- Glaucoma- Hypertension- Myocardial infarction (HCC) 05/15/2011PAST SURGICAL HISTORYProcedure Laterality Date- ANGIOPLASTY HX 05/15/2011 2 stents s/p [place];[facility]- CHOLECYSTECTOMY 08/11/2017 [facility]- PICC LINE INSERT/CONSULT 08/16/2017No family history [...] PRN Yrn Cedillo)Gonzalo 5 mg at 10/05/17 5586kxtgya-kbiwbwgf-eyjxgyf 2 capsule cap(s) (CREON 24) 2 capsule ORAL TID wMEALS Flynn (Res) MD Jane 2 capsule at 10/04/17 1740phenol 1 Hodges (CHLORASEPTIC) 1 Hodges MUCOUS MEMBRANE (TOPICAL MOUTH ANDTHROAT) q 2 H PRN Kolby (Res) Kevin 1 Hodges at 10/02/17 77862.9% NaCl 2-10 mL 2-10 mL INTRAVENOUS q 12 H Mundo (Res)(Hist) Tjxviln52 mL at 10/06/17 0842naloxone 0.2 mg injection [...] lb 12.3 oz) SpO2 96% BMI 29.77 kg/a5Olqstot: Well appearing, sleeping, in no acute distress.Skin: [...] 212 (A) H210/06/2017 12:12 PM 237 (A) O1Fpwxctyhn Latest Ref Rng AND Units 10/06/2017 5:51 [...] MDDATE: October 06, 2017TIME: 5:07 PM Normal [facility] Comp Metabolic Panelon 10-06 Alanine aminotransferase (ALT) 28 U/L Normal 5-50 [facility] Comment on above: Performed By: #### P T, PTT, AMYL, CMP, LIPA, PHOS ####[place] [phone]#### TRANSF ####[place] [phone] Albumin 3.4 g/dL Low 3.5-5.0 [facility] Comment on above: Performed By: #### P T, PTT, AMYL, CMP, LIPA, PHOS ####[place] [phone]#### TRANSF ####[place] [phone] Alkaline phosphatase (ALP) 108 U/L Normal 40-150 [facility] Comment on above: Performed By: #### P T, PTT, AMYL, CMP, LIPA, PHOS ####[place] [address]#### TRANSF ####[place] [address] Anion gap 16 mmol/L Normal 9-18 [facility] Comment on above: Performed By: #### P T, PTT, AMYL, CMP, LIPA, PHOS ####[place] [address]#### TRANSF ####[place] [address] Aspartate aminotransferase (AST) 23 U/L Normal 7-40 [facility] Comment on above: Performed By: #### P T, PTT, AMYL, CMP, LIPA, PHOS ####[place] [address]#### TRANSF ####[place] [address] Bilirubin (total) 0.2 mg/dL Normal 0.0-1.5 [facility] Comment on above: Performed By: #### P T, PTT, AMYL, CMP, LIPA, PHOS ####[place] [address]#### TRANSF ####[place] [address] Calcium 9.2 mg/dL Normal 8.5-10.5 [facility] Comment on above: Performed By: #### P T, PTT, AMYL, CMP, LIPA, PHOS ####[place] [address]#### TRANSF ####[place] [address] Chloride 103 mmol/L Normal 98-110 [facility] Comment on above: Performed By: #### P T, PTT, AMYL, CMP, LIPA, PHOS ####[place] [address]#### TRANSF ####[place] [address] CO2 24 mmol/L Normal 23-32 [facility] Comment on above: Performed By: #### P T, PTT, AMYL, CMP, LIPA, PHOS ####[place] [address]#### TRANSF ####[place] [address] Creatinine 0.54 mg/dL Low 0.70-1.40 [facility] Comment on above: Performed By: #### P T, PTT, AMYL, CMP, LIPA, PHOS ####[place] [address]#### TRANSF ####[place] [address] eGFR (non-black) mL/min/{1.73_m2} Normal >60 [facility] Comment on above: Performed By: #### P T, PTT, AMYL, CMP, LIPA, PHOS ####[place] [address]#### TRANSF ####[place] [address] Glucose mass conc 208 mg/dL High 65-100 [facility] Comment on above: Performed By: #### P T, PTT, AMYL, CMP, LIPA, PHOS ####[place] [address]#### TRANSF ####[place] [address] Potassium molar conc 4.3 mmol/L Normal 3.5-5.0 [facility] Comment on above: Performed By: #### P T, PTT, AMYL, CMP, LIPA, PHOS ####[place] [address]#### TRANSF ####[place] [address] Protein 7.3 g/dL Normal 6.0-8.4 [facility] Comment on above: Performed By: #### P T, PTT, AMYL, CMP, LIPA, PHOS ####[place] [address]#### TRANSF ####[place] [address] Sodium 143 mmol/L Normal 135-146 [facility] Comment on above: Performed By: #### P T, PTT, AMYL, CMP, LIPA, PHOS ####[place] [address]#### TRANSF ####[place] [address] Urea nitrogen 16 mg/dL Normal 10-25 [facility] Comment on above: Performed By: #### P T, PTT, AMYL, CMP, LIPA, PHOS ####[place] [address]#### TRANSF ####[place] [address] Magnesiumon 10-06-2017 Magnesium 2.0 mg/dL Normal 1.7-2.6 [facility] Comment on above: Performed By: #### P T, PTT, AMYL, CMP, LIPA, PHOS ####[place] [address]#### TRANSF ####[place] [phone] NURSING PROGon 10-06-2017 NURSING PROG HNO ID: [id number] thor: Pramod (Rn) MOUSTAPHA Mckennaervice: (none)Author Type: Registered NurseType: Nursing Progress NoteFiled: 10/06/2017 6:57 PMNote Text: Nursing Progress NotePatient Name: Rocio Boudreaux: [id number] Location: [place] [address]/[id number] ____Daily Note:10/06/17 0800 (late entry)- Patient is [...] to 40/hr at approximately to possibly assisted withnaritu; SAIMA Galeas, is aware. Call light and belongings are withinreach.This note was completed by: Pramod Mckenna RN [facility] NURSING PROG HNO ID: [id number] thor: Jennifer Humphries (Rn) Clayton Websterice: (none)Author Type: Registered NurseType: Nursing Progress NoteFiled: 10/06/2017 6:15 AMNote Text: Nursing Progress NotePatient Name: Rocio JacksonN: [id number] Location: [place] [address]/SG-[id number] ____ Text page sent to certified surgical tech/first assistant to notify again that pt had [id number] emesis of bile (no tube feed color in any emesis tonight).This note was completed by: Jennifer Webster RN [facility] NURSING PROG HNO ID: [id number] thor: Jennifer Humphries (Rn) MOUSTAPHA Websterervice: (none)Author Type: Registered NurseType: Nursing Progress NoteFiled: 10/06/2017 3:17 AMNote Text: Nursing Progress NotePatient Name: Rocio JacksonN: [id number] Location: [place] [address] ____ Pt with two episodes of emesis [...] note was completed by: Jennifer Webster RN [facility] NUTRITIONon 10-06-2017 NUTRITION HNO ID: [id number] thor: Alise Segura) BarsaService: Nutrition TherapyAuthor Type: [...] 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 4/, who wasadmitted to the SICU for postoperative [...] 81 kgResting Metabolic Rate: 1599Estimated kilocalorie needs: 1564-1850 kilocalories determined by 20-25kcal/kgEstimated protein needs: 105-138 grams determined by 1.3-1.7 g/kg DosingweightEstimated fluid needs: 5249-3315 milliliters based on 1 mL per kcalNUTRITION [...] lb 12.3 oz) SpO2 96% BMI 29.77 kg/c9Bbfdev Labs GLUC 208*BUN 16CREAT 0.54*NA 143K 4.3CHLOR [...] (ROXICODONE) 5 mg ORAL q 4 H LCYusxjvs-qmnoqwkf-jybzhxq 2 capsule cap(s) (CREON 24) 2 capsule ORAL TID wMEALSphenol 1 Hodges (CHLORASEPTIC) 1 Hodges MUCOUS MEMBRANE (TOPICAL MOUTH ANDTHROAT) q 2 [...] 10/03/17 0659 10/03/17 07 - 10/04/17 0659 239126 - 10/05/17 0659 10/05/17 0700 - 10/06/17 [...] assistance and weekends please page theGroup Pager -[phone] [facility] PROGRESSon 10-06-2017 PROGRESS HNO ID: [id number] thor: Michael Cedillo) AugustinService: General SurgeryAuthor Type: PhysicianType: Progress NotesFiled: 10/06/2017 6:29 PMNote Text:SURGICAL SERVICES PROGRESS NOTENAME: Rocio JacksonMRN: [id number]: 10/06/2017Time: 10:09 JUDIE DATE: 09/30/20175 Days Post-OpProcedure(s) [...] on POD 3 nml, removed. Transferred to [facility]?Large volume of emesis past 24 hours that [...] lb 12.3 oz) SpO2 96% BMI 29.77 kg/a2Cgkzxo/Output Summary (Last 24 hours) at 10/06/17 1008Last [...] values in this interval not displayed.CoagsRecent Labs 805 2 3 08/15/1820891127GVTT 25.9 24.9 -- -- 39.8* 31.6INR 1.2 1.1 1.0 2.0* 2.0* 1.5*Imaging:KUB (10/05/17):IMPRESSION:No dilated loops of bowel. ?Postsurgical changes.Salvador Birmingham, MDResident General Surgery Normal [facility] Phosphoruson 10-06-2017 Phosphate 3.2 mg/dL Normal 2.5-4.5 [facility] Comment on above: Performed By: #### P T, PTT, AMYL, CMP, LIPA, PHOS ####[facility] [place], [place] [phone]#### TRANSF ####[facility] [address] [place], [place] [phone] XR ABDOMEN 1V SPECIFYon 09-27 XR ABDOMEN [...] indeterminate etiology.IMPRESSION:No dilated loops of bowel. Postsurgical changes.Medical Historian: PSCShefali Transcribe Date/Time: Oct 06 2017 6:41ADictated by : MELCHOR OSBORN MDThimilly examination was interpreted and the report reviewed and electronically signed by: MELCHOR OSBORN MD on Oct 06 2017 6:45AM [id number] Normal [facility] CBC and Differentialon 10-05 Abs Baso <0.03 Normal <0.11 [facility] Comment on above: Performed By: #### P T, PTT, AMYL, CMP, LIPA, PHOS ####[place] [address]#### TRANSF ####[place] [address] Abs Lamar 0.47 k/uL Normal <0.87 [facility] Comment on above: Performed By: #### P T, PTT, AMYL, CMP, LIPA, PHOS ####[place] [address]#### TRANSF ####[place] [address] Abs Neut 3.08 k/uL Normal 1.45-7.50 [facility] Comment on above: Performed By: #### P T, PTT, AMYL, CMP, LIPA, PHOS ####[place] [address]#### TRANSF ####[place] [address] Basophils/100 WBC Auto (Bld) 0.2 % Normal [facility] Comment on above: Performed By: #### P T, PTT, AMYL, CMP, LIPA, PHOS ####[place] [address]#### TRANSF ####[place] [address] DTYPE Auto Diff Normal [facility] Comment on above: Performed By: #### P T, PTT, AMYL, CMP, LIPA, PHOS ####[place] [address]#### TRANSF ####[place] [address] [place] [address] [place] [phone] Eosinophils 0.23 10*3/uL Normal <0.46 [facility] Comment on above: Performed By: #### P T, PTT, AMYL, CMP, LIPA, PHOS ####[place] [address]#### TRANSF ####[place] [address] Eosinophils/100 leukocytes 4.1 % Normal [facility] Comment on above: Performed By: #### P T, PTT, AMYL, CMP, LIPA, PHOS ####[place] [address]#### TRANSF ####[place] [address] Erythrocyte distribution width Auto Ratio (RBC) 16.3 % High 11.5-15.0 [facility] Comment on above: Performed By: #### P T, PTT, AMYL, CMP, LIPA, PHOS ####[place] [address]#### TRANSF ####[place] [address] Erythrocytes (RBC) 4.00 10*6/uL Low 4.20-6.00 [facility] Comment on above: Performed By: #### P T, PTT, AMYL, CMP, LIPA, PHOS ####[place] [address]#### TRANSF ####[place] [address] [place] [phone] Hematocrit (HCT) 32.0 % Low 39.0-51.0 [facility] Comment on above: Performed By: #### P T, PTT, AMYL, CMP, LIPA, PHOS ####[place] [address]#### TRANSF ####[place] [address] Hemoglobin mass conc (Bld) 10.2 g/dL Low 13.0-17.0 [facility] Comment on above: Performed By: #### P T, PTT, AMYL, CMP, LIPA, PHOS ####[place] [address]#### TRANSF ####[place] [address] Lymphocytes 1.82 10*3/uL Normal 1.00-4.00 [facility] Comment on above: Performed By: #### P T, PTT, AMYL, CMP, LIPA, PHOS ####[place] [address]#### TRANSF ####[place] [address] Lymphocytes/100 leukocytes 32.4 % Normal [facility] Comment on above: Performed By: #### P T, PTT, AMYL, CMP, LIPA, PHOS ####[place] [address]#### TRANSF ####[place] [address] MCH 25.5 pG Low 26.0-34.0 [facility] Comment on above: Performed By: #### P T, PTT, AMYL, CMP, LIPA, PHOS ####[place] [address]#### TRANSF ####[facility] [place] [id number] MCHC mass conc (RBC) 31.9 g/dL Normal 30.5-36.0 [facility] Comment on above: Performed By: #### P T, PTT, AMYL, CMP, LIPA, PHOS ####[address]#### TRANSF ####[place] [id number] MCV 80.0 fL Normal 80.0-100.0 [facility] Comment on above: Performed By: #### P T, PTT, AMYL, CMP, LIPA, PHOS ####[place] [address]#### TRANSF ####[place] [phone] Monocytes/100 leukocytes 8.4 % Normal [facility] Comment on above: Performed By: #### P T, PTT, AMYL, CMP, LIPA, PHOS ####[place] [address]#### TRANSF ####[place] [phone] Neutrophils/100 WBC Auto (Bld) 54.9 % Normal [facility] Comment on above: Performed By: #### P T, PTT, AMYL, CMP, LIPA, PHOS ####[place] [address]#### TRANSF ####[place] [phone] Platelet mean volume (PMV) 9.3 fL Normal 9.0-12.7 [facility] Comment on above: Performed By: #### P T, PTT, AMYL, CMP, LIPA, PHOS ####[address]#### TRANSF ####[place] [address] [place], [place] [phone] Platelets 314 10*3/uL Normal 150-400 [facility] Comment on above: Performed By: #### P T, PTT, AMYL, CMP, LIPA, PHOS ####[address] [phone]#### TRANSF ####[address] [phone] WBC (Leukocytes) 5.61 10*3/uL Normal 3.70-11.00 [facility] Comment on above: Performed By: #### P T, PTT, AMYL, CMP, LIPA, PHOS ####[address] [phone]#### TRANSF ####[address] [phone] CONSULTon 10-05-2017 CONSULT HNO ID: [id number] thor: Damaris Formanervice: EndocrinologyAuthor Type: PhysicianType: ConsultsFiled: 10/05/2017 6:01 PMNote Text:ENDOCRINOLOGY INITIAL CONSULTPATIENT NAME: Rocio JacksonMRN: [id number] DATE: 10/05/2017SERVICE TIME: 5:01 PMREASON FOR CONSULT: DM Type 2REQUESTING PHYSICIAN:Michael Jolley [facility] PHYSICIAN: Adriane Nichols, DOSubjectiveHISTORY OF PRESENT ILLNESS: [...] sees primary caredoctor for DM management in [facility]. He was on oral agentssaxagliptin 5 mg [...] Date- ANGIOPLASTY HX 05/15/2011 2 stents s/p [place];[facility]- CHOLECYSTECTOMY 08/11/2017 [facility]- PICC LINE INSERT/CONSULT 08/16/2017No family history [...] mg ORAL q 6 H Allegra Atkins (Saima)Miglionico 650 mg at 10/05/17 1549oxyCODONE 5 mg oral liquid (ROXICODONE) 5 mg ORAL q 4 H PRN Yrn Cedillo)Gonzalo 5 mg at 10/05/17 3116klyrgh-ccpuxumd-seeakwb 2 capsule cap(s) (CREON 24) 2 capsule ORAL TID EALMilly Pruett (Res) MD Jane 2 capsule at 10/04/17 1740phenol 1 Hodges (CHLORASEPTIC) 1 Hodges MUCOUS MEMBRANE (TOPICAL MOUTH ANDTHROAT) q 2 H PRN Kolby (Res) Kevin 1 Hodges at 10/02/17 10374.9% NaCl 2-10 mL 2-10 mL INTRAVENOUS q [...] injection 5,000 Units SUBCUTANEOUS q 12 H Antonaaron(Res)(Hist) Sideris 5,000 Units at 10/05/17 0805metoclopramide HCl [...] lb 12.3 oz) SpO2 96% BMI 29.77 kg/x8Kzojcps: Fatigued appearing, alert, in no acute distress, [...] AM 144 (A)10/03/2017 12:05 PM 230 (A) H210/03/2017 5:34 PM 203 (A) H210/03/2017 11:57 PM [...] MDDATE: October 05, 2017TIME: 5:01 PM Normal [facility] Comp Metabolic Panelon 10-05 Alanine aminotransferase (ALT) 27 U/L Normal 5-50 [facility] Comment on above: Performed By: #### P T, PTT, AMYL, CMP, LIPA, PHOS ####[facility] [place], [place] [phone]#### TRANSF ####[facility] [place], [place] [phone] Albumin 3.3 g/dL Low 3.5-5.0 [facility] Comment on above: Result Comment: Revi ewed Performed By: #### P T, PTT, AMYL, CMP, LIPA, PHOS ####[place] [address]#### TRANSF ####[place] [phone] Alkaline phosphatase (ALP) 107 U/L Normal 40-150 [facility] Comment on above: Performed By: #### P T, PTT, AMYL, CMP, LIPA, PHOS ####[place] [address]#### TRANSF ####[place] [phone] Anion gap 12 mmol/L Normal 9-18 [facility] Comment on above: Performed By: #### P T, PTT, AMYL, CMP, LIPA, PHOS ####[place] [address]#### TRANSF ####[place] [phone] Aspartate aminotransferase (AST) 23 U/L Normal 7-40 [facility] Comment on above: Performed By: #### P T, PTT, AMYL, CMP, LIPA, PHOS ####[place] [address]#### TRANSF ####[place] [phone] Bilirubin (total) 0.2 mg/dL Normal 0.0-1.5 [facility] Comment on above: Performed By: #### P T, PTT, AMYL, CMP, LIPA, PHOS ####[place] [address]#### TRANSF ####[place] [phone] Calcium 8.9 mg/dL Normal 8.5-10.5 [facility] Comment on above: Performed By: #### P T, PTT, AMYL, CMP, LIPA, PHOS ####[place] [address]#### TRANSF ####[place] [phone] Chloride 103 mmol/L Normal 98-110 [facility] Comment on above: Performed By: #### P T, PTT, AMYL, CMP, LIPA, PHOS ####[place] [address]#### TRANSF ####[place] [address] CO2 27 mmol/L Normal 23-32 [facility] Comment on above: Performed By: #### P T, PTT, AMYL, CMP, LIPA, PHOS ####[place] [address]#### TRANSF ####[place] [phone] Creatinine 0.56 mg/dL Low 0.70-1.40 [facility] Comment on above: Performed By: #### P T, PTT, AMYL, CMP, LIPA, PHOS ####[place] [address]#### TRANSF ####[place] [phone] eGFR (non-black) mL/min/{1.73_m2} Normal >60 [facility] Comment on above: Performed By: #### P T, PTT, AMYL, CMP, LIPA, PHOS ####[place] [address]#### TRANSF ####[place] [phone] Glucose mass conc 172 mg/dL High 65-100 [facility] Comment on above: Performed By: #### P T, PTT, AMYL, CMP, LIPA, PHOS ####[place] [address]#### TRANSF ####[place] [phone] Potassium molar conc 4.6 mmol/L Normal 3.5-5.0 [facility] Comment on above: Performed By: #### P T, PTT, AMYL, CMP, LIPA, PHOS ####[place] [address]#### TRANSF ####[place] [phone] Protein 6.5 g/dL Normal 6.0-8.4 [facility] Comment on above: Performed By: #### P T, PTT, AMYL, CMP, LIPA, PHOS ####[place] [address]#### TRANSF ####[place] [phone] Sodium 142 mmol/L Normal 135-146 [facility] Comment on above: Performed By: #### P T, PTT, AMYL, CMP, LIPA, PHOS ####[place] [address]#### TRANSF ####[place] [phone] Urea nitrogen 14 mg/dL Normal 10-25 [facility] Comment on above: Performed By: #### P T, PTT, AMYL, CMP, LIPA, PHOS ####[place] [address]#### TRANSF ####[place] [phone] Magnesiumon 10-05-2017 Magnesium 2.1 mg/dL Normal 1.7-2.6 [facility] Comment on above: Performed By: #### P T, PTT, AMYL, CMP, LIPA, PHOS ####[facility] [place], [place] [phone]#### TRANSF ####[facility] [address] [place], [place] [phone] NURSING PROGon 10-05-2017 NURSING PROG HNO ID: [id number] thor: Saima Kramer (Rn) Debra, RNService: (none)Author Type: Registered NurseType: Nursing Progress NoteFiled: 10/05/2017 3:52 PMNote Text: Nursing Progress NotePatient Name: Rocio HayesN: [id number] Location: [place] [address]/[id number] ____Daily Note:Pt sitting on edge of bed [...] note was completed by: Saima Richardson RN [facility] PROGRESSon 10-05-2017 PROGRESS HNO ID: [id number] thor: Michael Cedillo) AugustinService: General SurgeryAuthor Type: PhysicianType: Progress NotesFiled: 10/05/2017 6:45 PMNote Text:SURGICAL SERVICES PROGRESS NOTENAME: Rocio JacksonMRN: [id number]: 10/05/2017Time: 7:15 JUDIE DATE: 09/30/20175 Days Post-OpProcedure(s) [...] 10/05/17 0659 10/05/17 07 - 10/06/17 0659Shift 4565-1542 8240-8382 0383-8492 24 Hour Total 5899-3721 7418-67281645-3797 24 Hour TotalINTAKE PO 770 8649 806 4082 PO 952 304 7256 Tube Feed Intake (GI Feed/Drain 09/30/17 Small Bore Feeding Right Naris10 Fr) 240 758 367 3396 Irrigants 5 115 180 300 Irrigant/Flush Amount In (Drain/Tube 08/27/17 Admission to HospitalRight Upper Quadrant Abdomen Drain #3) 5 5 10 Irrigant/Flush Amount In (GI Feed/Drain 09/30/17 Small Bore FeedingRight Naris 10 Fr) 110 180 290 Shift Total 775 1285 718 2778OUTPUT Urine 989 997 4930 3075 Void (ml) 525 1850 2375 Tube [...] x 1 x 5 x Shift Total 602 167 4762 3425Weight (kg) 88.8 88.8 88.8 88.8 88.8 88.8 88.8 88.8DIAGNOSTIC STUDIES:CBC:Hemoglobin (g/dL)Date Value10/05/2017 10.2 Hematocrit (%)Date Value10/05/2017 32.0 WBC (k/uL)Date Value10/05/2017 5.61 Platelet Count (k/uL)Date Value10/05/2017 314 CMP:BMP:Glucose 172 10/05/2017BUN 14 10/05/2017Creatinine 0.56 10/05/2017Sodium 142 10/05/2017Potassium 4.6 10/05/2017Chloride 103 10/05/2017CO2 27 10/05/2017Protein, Total 6.5 10/05/2017Albumin 3.3 10/05/2017Calcium 8.9 10/05/2017Alkaline Phosphatase 107 10/05/2017Bilirubin, Total 0.2 10/05/2017AST 23 10/05/2017ALT 27 10/05/2017NURY Mejia II general surgeryPager [phone] - 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Pager [phone] - PersonalSTAFF NOTEI have independently seen and examined the patient today. I haveindependently reviewed all the imaging and the labs. I agree with keycomponents of the resident's note above. Care plan and decision making hasbeen discussed.Doing well, continued DGETolerating tube feedsCleFabian Jolley MD, MPH, FACSGeneral/Trauma/HPB SurgeryPager: [phone] Cell: [id number] 2017 Normal [facility] Phosphoruson 10-05-2017 Phosphate 3.6 mg/dL Normal 2.5-4.5 [facility] Comment on above: Performed By: #### P T, PTT, AMYL, CMP, LIPA, PHOS ####[place] [address]#### TRANSF ####[place] [phone] CBC and Differentialon 10-04 Abs Baso <0.03 Normal <0.11 [facility] Comment on above: Performed By: #### P T, PTT, AMYL, CMP, LIPA, PHOS ####[place] [address]#### TRANSF ####[place] [phone] Abs Lamar 0.32 k/uL Normal <0.87 [facility] Comment on above: Performed By: #### P T, PTT, AMYL, CMP, LIPA, PHOS ####[place] [address]#### TRANSF ####[place] [address] Abs Neut 2.35 k/uL Normal 1.45-7.50 [facility] Comment on above: Performed By: #### P T, PTT, AMYL, CMP, LIPA, PHOS ####[place] [address]#### TRANSF ####[place] [address] Basophils/100 WBC Auto (Bld) 0.2 % Normal [facility] Comment on above: Performed By: #### P T, PTT, AMYL, CMP, LIPA, PHOS ####[place] [address]#### TRANSF ####[place] [phone] DTYPE Auto Diff Normal [facility] Comment on above: Performed By: #### P T, PTT, AMYL, CMP, LIPA, PHOS ####[place] [address]#### TRANSF ####[place] [phone] Eosinophils 0.25 10*3/uL Normal <0.46 [facility] Comment on above: Performed By: #### P T, PTT, AMYL, CMP, LIPA, PHOS ####[place] [address]#### TRANSF ####[place] [address] Eosinophils/100 leukocytes 6.0 % Normal [facility] Comment on above: Performed By: #### P T, PTT, AMYL, CMP, LIPA, PHOS ####[place] [address]#### TRANSF ####[place] [address] Erythrocyte distribution width Auto Ratio (RBC) 16.3 % High 11.5-15.0 [facility] Comment on above: Performed By: #### P T, PTT, AMYL, CMP, LIPA, PHOS ####[place] [address]#### TRANSF ####[place] [address] Erythrocytes (RBC) 3.42 10*6/uL Low 4.20-6.00 [facility] Comment on above: Performed By: #### P T, PTT, AMYL, CMP, LIPA, PHOS ####[place] [address]#### TRANSF ####[place] [address] Hematocrit (HCT) 27.0 % Low 39.0-51.0 [facility] Comment on above: Performed By: #### P T, PTT, AMYL, CMP, LIPA, PHOS ####[place] [address]#### TRANSF ####[place] [phone] Hemoglobin mass conc (Bld) 8.7 g/dL Low 13.0-17.0 [facility] Comment on above: Performed By: #### P T, PTT, AMYL, CMP, LIPA, PHOS ####[place] [address]#### TRANSF ####[place] [phone] Lymphocytes 1.27 10*3/uL Normal 1.00-4.00 [facility] Comment on above: Performed By: #### P T, PTT, AMYL, CMP, LIPA, PHOS ####[place] [address]#### TRANSF ####[place] [address] Lymphocytes/100 leukocytes 30.2 % Normal [facility] Comment on above: Performed By: #### P T, PTT, AMYL, CMP, LIPA, PHOS ####[place] [address]#### TRANSF ####[place] [address] MCH 25.4 pG Low 26.0-34.0 [facility] Comment on above: Performed By: #### P T, PTT, AMYL, CMP, LIPA, PHOS ####[place] [address]#### TRANSF ####[phone] MCHC mass conc (RBC) 32.2 g/dL Normal 30.5-36.0 [facility] Comment on above: Performed By: #### P T, PTT, AMYL, CMP, LIPA, PHOS ####[place] [address]#### TRANSF ####[place] [address] MCV 78.9 fL Low 80.0-100.0 [facility] Comment on above: Performed By: #### P T, PTT, AMYL, CMP, LIPA, PHOS ####[place] [address]#### TRANSF ####[place] [address] Monocytes/100 leukocytes 7.6 % Normal [facility] Comment on above: Performed By: #### P T, PTT, AMYL, CMP, LIPA, PHOS ####[place] [address]#### TRANSF ####[place] [address] Neutrophils/100 WBC Auto (Bld) 56.0 % Normal [facility] Comment on above: Performed By: #### P T, PTT, AMYL, CMP, LIPA, PHOS ####[place] [address]#### TRANSF ####[place] [phone] Platelet mean volume (PMV) 9.2 fL Normal 9.0-12.7 [facility] Comment on above: Performed By: #### P T, PTT, AMYL, CMP, LIPA, PHOS ####[place] [address]#### TRANSF ####[place] [phone] Platelets 246 10*3/uL Normal 150-400 [facility] Comment on above: Performed By: #### P T, PTT, AMYL, CMP, LIPA, PHOS ####[place] [phone]#### TRANSF ####[place] [phone] WBC (Leukocytes) 4.20 10*3/uL Normal 3.70-11.00 [facility] Comment on above: Performed By: #### P T, PTT, AMYL, CMP, LIPA, PHOS ####[place] [phone]#### TRANSF ####[place] [phone] CONSULT PROGon 10-04-2017 CONSULT PROG HNO ID: [id number] thor: Brock Freede: Pain ManagementAuthor Type: Physician AssistantType: Consult Progress NoteFiled: 10/04/2017 8:53 AMNote Text:PERIPHERAL NERVE CATHETER PROGRESS NOTEPATIENT NAME: Rocio JacksonMRN: [id number] DATE: 10/04/2017SERVICE TIME: 8:36 AMPRIMARY SERVICE:?General Surgery??ASSESSMENT [...] placed: Day of surgery??MEDICATIONS:??Epidu ral Medications and DRY PRIMER POWDER BLENDER SettingsBupivacaine 0.1% + Dilaudid??Basal rate: 4?mL/hr.Patient Demand Bolus: 3?mL.Lockout interval: 4?minutesCurrent hospital medications:oxyCODONE IR 5 mg tab(s) (ROXICODONE) 5 mg ORAL q 4 H MAIpqmwgh-skvxkxsj-lqhhfcy 2 capsule cap(s) (CREON 24) 2 capsule ORAL TID wMEALSacetaminophen 650 mg tab(s) (TYLENOL) 650 mg ORAL q 6 Hdocusate sodium 100 mg cap(s) (COLACE) 100 mg ORAL BIDatorvastatin 40 mg tab(s) (LIPITOR) 40 mg ORAL/FEEDING TUBE AT BEDTIMEphenol 1 Hodges (CHLORASEPTIC) 1 Hodges MUCOUS MEMBRANE (TOPICAL MOUTH ANDTHROAT) q 2 [...] mg ORAL q 8 HHYDROmorphone 0.5 mg/mL DRY PRIMER POWDER BLENDER CLINICIAN DOSE 0.2 mg 0.2 mg INTRAVENOUS [...] Sánchez.SIGNATURE: Brock Dixon PA-C PATIENT NAME: Rocio JacksonDATE: October 04, 2017 : 8:36 AM PAGER/CONTACT #: MILTON [phone] Normal [facility] Comp Metabolic Panelon 10-04 Alanine aminotransferase (ALT) 23 U/L Normal 5-50 [facility] Comment on above: Performed By: #### P T, PTT, AMYL, CMP, LIPA, PHOS ####[place] [address]#### TRANSF ####[place] [phone] Albumin 2.3 g/dL Low 3.5-5.0 [facility] Comment on above: Performed By: #### P T, PTT, AMYL, CMP, LIPA, PHOS ####[place] [phone]#### TRANSF ####[place] [phone] Alkaline phosphatase (ALP) 83 U/L Normal 40-150 [facility] Comment on above: Performed By: #### P T, PTT, AMYL, CMP, LIPA, PHOS ####[place] [address]#### TRANSF ####[place] [phone] Anion gap 11 mmol/L Normal 9-18 [facility] Comment on above: Performed By: #### P T, PTT, AMYL, CMP, LIPA, PHOS ####[place] [address]#### TRANSF ####[place] [address] Aspartate aminotransferase (AST) 19 U/L Normal 7-40 [facility] Comment on above: Performed By: #### P T, PTT, AMYL, CMP, LIPA, PHOS ####[place] [address]#### TRANSF ####[place] [address] Bilirubin (total) 0.2 mg/dL Normal 0.0-1.5 [facility] Comment on above: Performed By: #### P T, PTT, AMYL, CMP, LIPA, PHOS ####[place] [address]#### TRANSF ####[place] [address] Calcium 8.1 mg/dL Low 8.5-10.5 [facility] Comment on above: Performed By: #### P T, PTT, AMYL, CMP, LIPA, PHOS ####[place] [address]#### TRANSF ####[place] [address] Chloride 103 mmol/L Normal 98-110 [facility] Comment on above: Performed By: #### P T, PTT, AMYL, CMP, LIPA, PHOS ####[address]#### TRANSF ####[place] [address] CO2 25 mmol/L Normal 23-32 [facility] Comment on above: Performed By: #### P T, PTT, AMYL, CMP, LIPA, PHOS ####[place] [address]#### TRANSF ####[place] [address] Creatinine 0.54 mg/dL Low 0.70-1.40 [facility] Comment on above: Performed By: #### P T, PTT, AMYL, CMP, LIPA, PHOS ####[place] [address]#### TRANSF ####[place] [address] eGFR (non-black) mL/min/{1.73_m2} Normal >60 [facility] Comment on above: Performed By: #### P T, PTT, AMYL, CMP, LIPA, PHOS ####[address]#### TRANSF ####[place] [address] Glucose mass conc 146 mg/dL High 65-100 [facility] Comment on above: Performed By: #### P T, PTT, AMYL, CMP, LIPA, PHOS ####[place] [address]#### TRANSF ####[place] [phone] Potassium molar conc 4.0 mmol/L Normal 3.5-5.0 [facility] Comment on above: Performed By: #### P T, PTT, AMYL, CMP, LIPA, PHOS ####[place] [address]#### TRANSF ####[place] [address] Protein 5.6 g/dL Low 6.0-8.4 [facility] Comment on above: Performed By: #### P T, PTT, AMYL, CMP, LIPA, PHOS ####[place] [address]#### TRANSF ####[place] [address] Sodium 139 mmol/L Normal 135-146 [facility] Comment on above: Performed By: #### P T, PTT, AMYL, CMP, LIPA, PHOS ####[place] [address]#### TRANSF ####[place] [address] Urea nitrogen 16 mg/dL Normal 10-25 [facility] Comment on above: Performed By: #### P T, PTT, AMYL, CMP, LIPA, PHOS ####[place] [address]#### TRANSF ####[place] [address] Magnesiumon 10-04-2017 Magnesium 1.8 mg/dL Normal 1.7-2.6 [facility] Comment on above: Performed By: #### P T, PTT, AMYL, CMP, LIPA, PHOS ####[place] [address]#### TRANSF ####[place] [phone] NURSING PROGon 10-04-2017 NURSING PROG HNO ID: [id number] thor: Homa (Rn) Bonnie, RNService: (none)Author Type: Registered NurseType: Nursing Progress NoteFiled: 10/05/2017 5:27 AMNote Text: Nursing Progress NotePatient Name: Rocio JacksonMRN: [id number] Location: [place] [address]/[id number] ____Daily Note:2049: Pt had one 50cc emesis. Medicated with Sxovie0146: Pt reassessed. States nausea has subsided. Will continue to monitor.0455: Pt had 300cc green emesis episode. Medicated with zofran. Text pagesent to SROC to make aware.0525: SROC returned called. day team will be rounding soon. Willcontinue to monitor.This note was completed by: Homa Nicole RN [facility] PROGRESSon 10-04-2017 PROGRESS HNO ID: [id number] thor: Mela Sheridane: General SurgeryAuthor Type: PhysicianType: [...] lb 12.3 oz) SpO2 94% BMI 29.77 kg/t6NTJRVUF: no acute distressABDOMEN: soft, nontender, mildly distended. [...] 0.5LACT -- -- -- -- 2.3*CoagsRecent Labs 09/24/1808 [id number] 043276ILIM 25.9 24.9 -- -- 39.8* 31.6INR 1.2 1.1 1.0 2.0* 2.0* 1.5*Current Medications:Current hospital medications:morphine 1-2 mg injection 1-2 mg INTRAVENOUS q 6 H PRNoxyCODONE 5 mg oral liquid (ROXICODONE) 5 mg ORAL q 4 H BBHxuetrq-pzxiqkgr-grynxoj 2 capsule cap(s) (CREON 24) 2 capsule ORAL TID wMEALSacetaminophen 650 mg tab(s) (TYLENOL) 650 mg ORAL q 6 Hdocusate sodium 100 mg cap(s) (COLACE) 100 mg ORAL BIDatorvastatin 40 mg tab(s) (LIPITOR) 40 mg ORAL/FEEDING TUBE AT BEDTIMEphenol 1 Hodges (CHLORASEPTIC) 1 Hodges MUCOUS MEMBRANE (TOPICAL MOUTH ANDTHROAT) q 2 [...] epidural removalMuriel Perez 2017 1:07 PM Normal [facility] Phosphoruson 10-04-2017 Phosphate 3.5 mg/dL Normal 2.5-4.5 [facility] Comment on above: Performed By: #### P T, PTT, AMYL, CMP, LIPA, PHOS ####[place] [phone]#### TRANSF ####[place] [phone] Amylaseon 10-03-2017 Amylase 44 U/L Normal 0-137 [facility] Comment on above: Performed By: #### P T, PTT, AMYL, CMP, LIPA, PHOS ####[place] [phone]#### TRANSF ####[place] [phone] Amylase,Body Fluidon 018 Amylase 118 U/L Critically abnormal See Comment [facility] Comment on above: Result Comment: (NOT E)PLEURAL [...] CLSI document C49-A. SAIMA Contreras: Clinical LaboratoryStandards [place]; 2006.3. Kay CL, Angelia RC, Nimo DJ. Use of cyst fluid CEA,CA19-9, and amylase for evaluation of pancreatic lesions. ClinicalBiochemistry. 2009;42:4913-2603.This test was developed and its performance characteristicsdetermined by [facility]'s [facility] Pathology and[facility] [place] ([facility]).It has not been cleared or approved by the FDA. [facility] is regulatedunder CLIA as qualified to perform high-complexity testing.This test is used for clinical purposes. It should not be regarded asinvestigational or for research. Performed By: #### P T, PTT, AMYL, CMP, LIPA, PHOS ####[address]#### TRANSF ####[place] [address] Fluid Type Chandana Howard Drain Normal [facility] Comment on above: Result Comment: LEFT Performed By: #### P T, PTT, AMYL, CMP, LIPA, PHOS ####[place] [address]24[address]#### TRANSF ####[place] [address] Amylase 53 U/L Critically abnormal See Comment [facility] Comment on above: Result Comment: (NOT E)PLEURAL [...] ApprovedGuideline. CLSI document C49-A. SAIMA Contreras: Clinical LaboratoryStandeastern new [facility] [place]; 2007.3. Kya EDUARDO, Angelia RC, Nimo DJ. Use of cyst fluid CEA,CA19-9, and amylase for evaluation of pancreatic lesions. ClinicalBiochemistry. 2009;42:1339-0631.This test was developed and its performance characteristicsdetermined by [facility]'s [facility] Pathology and[facility] Servic[facility] Medicine [place] ([facility]).It has not been cleared or approved by the FDA. [facility] is regulatedunder CLIA as qualified to perform high-complexity testing.This test is used for clinical purposes. It should not be regarded asinvestigational or for research. Performed By: #### P T, PTT, AMYL, CMP, LIPA, PHOS ####[address] [phone]#### TRANSF ####[facility] [place], [place] [phone] Fluid Type Chandana Howard Drain Normal [facility] Comment on above: Result Comment: GLORIA Nathan Performed By: #### P T, PTT, AMYL, CMP, LIPA, PHOS ####[address] [phone]#### TRANSF ####[phone] CBC and Differentialon 10-03 Abs Baso <0.03 Normal <0.11 [facility] Comment on above: Performed By: #### P T, PTT, AMYL, CMP, LIPA, PHOS ####[place] [address]#### TRANSF ####[place] [address] Abs Lamar 0.54 k/uL Normal <0.87 [facility] Comment on above: Performed By: #### P T, PTT, AMYL, CMP, LIPA, PHOS ####[place] [address]#### TRANSF ####[place] [address] Abs Neut 3.56 k/uL Normal 1.45-7.50 [facility] Comment on above: Performed By: #### P T, PTT, AMYL, CMP, LIPA, PHOS ####[place] [id number]#### TRANSF ####[place] [id number] Basophils/100 WBC Auto (Bld) 0.2 % Normal [facility] Comment on above: Performed By: #### P T, PTT, AMYL, CMP, LIPA, PHOS ####[place] [id number]#### TRANSF ####[place] [id number] DTYPE Auto Diff Normal [facility] Comment on above: Performed By: #### P T, PTT, AMYL, CMP, LIPA, PHOS ####[place] [id number]#### TRANSF ####[place] [id number] Eosinophils 0.29 10*3/uL Normal <0.46 [facility] Comment on above: Performed By: #### P T, PTT, AMYL, CMP, LIPA, PHOS ####[place] [address]#### TRANSF ####[place] [id number] Eosinophils/100 leukocytes 4.9 % Normal [facility] Comment on above: Performed By: #### P T, PTT, AMYL, CMP, LIPA, PHOS ####[place] [address]#### TRANSF ####[place] [id number] Erythrocyte distribution width Auto Ratio (RBC) 16.1 % High 11.5-15.0 [facility] Comment on above: Performed By: #### P T, PTT, AMYL, CMP, LIPA, PHOS ####[place] [address]#### TRANSF ####[place] [id number] Erythrocytes (RBC) 3.72 10*6/uL Low 4.20-6.00 [facility] Comment on above: Performed By: #### P T, PTT, AMYL, CMP, LIPA, PHOS ####[place] [address]#### TRANSF ####[place] [address] Hematocrit (HCT) 29.4 % Low 39.0-51.0 [facility] Comment on above: Performed By: #### P T, PTT, AMYL, CMP, LIPA, PHOS ####[place] [address]#### TRANSF ####[phone] Hemoglobin mass conc (Bld) 9.5 g/dL Low 13.0-17.0 [facility] Comment on above: Performed By: #### P T, PTT, AMYL, CMP, LIPA, PHOS ####[place] [address]#### TRANSF ####[phone] Lymphocytes 1.52 10*3/uL Normal 1.00-4.00 [facility] Comment on above: Performed By: #### P T, PTT, AMYL, CMP, LIPA, PHOS ####[place] [address]#### TRANSF ####[place] [address] Lymphocytes/100 leukocytes 25.7 % Normal [facility] Comment on above: Performed By: #### P T, PTT, AMYL, CMP, LIPA, PHOS ####[place] [address]#### TRANSF ####[place] [address] MCH 25.5 pG Low 26.0-34.0 [facility] Comment on above: Performed By: #### P T, PTT, AMYL, CMP, LIPA, PHOS ####[place] [address]#### TRANSF ####[phone] MCHC mass conc (RBC) 32.3 g/dL Normal 30.5-36.0 [facility] Comment on above: Performed By: #### P T, PTT, AMYL, CMP, LIPA, PHOS ####[place] [address]#### TRANSF ####[place] [phone] MCV 79.0 fL Low 80.0-100.0 [facility] Comment on above: Performed By: #### P T, PTT, AMYL, CMP, LIPA, PHOS ####[place] [address]#### TRANSF ####[phone] Monocytes/100 leukocytes 9.1 % Normal [facility] Comment on above: Performed By: #### P T, PTT, AMYL, CMP, LIPA, PHOS ####[place] [address]#### TRANSF ####[place] [address] Neutrophils/100 WBC Auto (Bld) 60.1 % Normal [facility] Comment on above: Performed By: #### P T, PTT, AMYL, CMP, LIPA, PHOS ####[place] [address]#### TRANSF ####[place] [address] Platelet mean volume (PMV) 10.0 fL Normal 9.0-12.7 [facility] Comment on above: Performed By: #### P T, PTT, AMYL, CMP, LIPA, PHOS ####[place] [address]#### TRANSF ####[place] [phone] Platelets 225 10*3/uL Normal 150-400 [facility] Comment on above: Performed By: #### P T, PTT, AMYL, CMP, LIPA, PHOS ####[place] [address] [place], [place] [phone]#### TRANSF ####[facility] [place], [place] [phone] WBC (Leukocytes) 5.92 10*3/uL Normal 3.70-11.00 [facility] Comment on above: Performed By: #### P T, PTT, AMYL, CMP, LIPA, PHOS ####[address] [phone]#### TRANSF ####[facility] [place], [place] [phone] CONSULT PROGon 10-03-2017 CONSULT PROG HNO ID: [id number] thor: Brock Freede: Pain ManagementAuthor Type: Physician AssistantType: Consult Progress NoteFiled: 10/03/2017 9:15 AMNote Text:PERIPHERAL NERVE CATHETER PROGRESS NOTEPATIENT NAME: Rocio JacksonMRN: [id number] DATE: 10/03/2017SERVICE TIME: 8:59 AMPRIMARY SERVICE: General [...] given SQ Heparin 5000 units Q 12 - 827, platelet count 225.?PLAN:Continue epidural analgesia to promote [...] catheter placed: Day of surgery?MEDICATIONS:Epidural Medications and DRY PRIMER POWDER BLENDER SettingsBupivacaine 0.1% + Dilaudid?Basal rate: 4 mL/hr.Patient Demand Bolus: 3 mL.Lockout interval: 4 minutes.??Current hospital medications:oxyCODONE IR 5 mg tab(s) (ROXICODONE) 5 mg ORAL q 4 H PRNdocusate sodium 100 mg cap(s) (COLACE) 100 mg ORAL BIDacetaminophen 650 mg CUP (TYLENOL) 650 mg ORAL/FEEDING TUBE q 6 Hatorvastatin 40 mg tab(s) (LIPITOR) 40 mg ORAL/FEEDING TUBE AT BEDTIMEphenol 1 Hodges (CHLORASEPTIC) 1 Hodges MUCOUS MEMBRANE (TOPICAL MOUTH ANDTHROAT) q 2 [...] mg ORAL q 8 HHYDROmorphone 0.5 mg/mL DRY PRIMER POWDER BLENDER CLINICIAN DOSE 0.2 mg 0.2 mg INTRAVENOUS q 6 HPRNinsulin lispro injection (rapid acting) (HumaLOG) SUBCUTANEOUS q 6 Hheparin 5,000 Units injection 5,000 Units SUBCUTANEOUS q 12 Hmetoclopramide HCl 10 mg injection (REGLAN) 10 mg INTRAVENOUS q 6 H PRNOBJECTIVE:PHYSICAL EXAM:Patient Vitals for the past 3 hrs: BP Temp Temp src Pulse Resp RmI788/01/13 0736 134/78 37.3 ?C (99.2 ?F) Oral [...] Dr. RaiATURE: Brock Dixon PA-C PATIENT NAME: Rocio Sibley: October 03, 2017 : 8:59 AM PAGER/CONTACT #: [facility] [phone] [facility] Comp Metabolic Panelon 10-03 Alanine aminotransferase (ALT) 25 U/L Normal 5-50 [facility] Comment on above: Performed By: #### P T, PTT, AMYL, CMP, LIPA, PHOS ####[place] [address]#### TRANSF ####[place] [address] Albumin 2.5 g/dL Low 3.5-5.0 [facility] Comment on above: Performed By: #### P T, PTT, AMYL, CMP, LIPA, PHOS ####[place] [address]#### TRANSF ####[place] [address] Alkaline phosphatase (ALP) 72 U/L Normal 40-150 [facility] Comment on above: Performed By: #### P T, PTT, AMYL, CMP, LIPA, PHOS ####[place] [address]#### TRANSF ####[place] [address] Anion gap 11 mmol/L Normal 9-18 [facility] Comment on above: Performed By: #### P T, PTT, AMYL, CMP, LIPA, PHOS ####[place] [address]#### TRANSF ####[place] [address] Aspartate aminotransferase (AST) 20 U/L Normal 7-40 [facility] Comment on above: Performed By: #### P T, PTT, AMYL, CMP, LIPA, PHOS ####[place] [address]#### TRANSF ####[address] [place] [address] Bilirubin (total) 0.2 mg/dL Normal 0.0-1.5 [facility] Comment on above: Performed By: #### P T, PTT, AMYL, CMP, LIPA, PHOS ####[address]#### TRANSF ####[address] [place] [place] [phone] Calcium 8.3 mg/dL Low 8.5-10.5 [facility] Comment on above: Performed By: #### P T, PTT, AMYL, CMP, LIPA, PHOS ####[place] [address]#### TRANSF ####[place] [address] Chloride 105 mmol/L Normal 98-110 [facility] Comment on above: Performed By: #### P T, PTT, AMYL, CMP, LIPA, PHOS ####[place] [address]#### TRANSF ####[place] [address] CO2 24 mmol/L Normal 23-32 [facility] Comment on above: Performed By: #### P T, PTT, AMYL, CMP, LIPA, PHOS ####[place] [address]#### TRANSF ####[place] [address] Creatinine 0.55 mg/dL Low 0.70-1.40 [facility] Comment on above: Performed By: #### P T, PTT, AMYL, CMP, LIPA, PHOS ####[place] [address]#### TRANSF ####[address] eGFR (non-black) mL/min/{1.73_m2} Normal >60 [facility] Comment on above: Performed By: #### P T, PTT, AMYL, CMP, LIPA, PHOS ####[place] [address]#### TRANSF ####[place] [address] Glucose mass conc 138 mg/dL High 65-100 [facility] Comment on above: Performed By: #### P T, PTT, AMYL, CMP, LIPA, PHOS ####[place] [address]#### TRANSF ####[place] [address] Potassium molar conc 4.1 mmol/L Normal 3.5-5.0 [facility] Comment on above: Performed By: #### P T, PTT, AMYL, CMP, LIPA, PHOS ####[place] [address]#### TRANSF ####[place] [address] Protein 5.7 g/dL Low 6.0-8.4 [facility] Comment on above: Performed By: #### P T, PTT, AMYL, CMP, LIPA, PHOS ####[place] [address]#### TRANSF ####[place] [address] Sodium 140 mmol/L Normal 135-146 [facility] Comment on above: Performed By: #### P T, PTT, AMYL, CMP, LIPA, PHOS ####[place] [address]#### TRANSF ####[address] [place] [phone] Urea nitrogen 18 mg/dL Normal 10-25 [facility] Comment on above: Performed By: #### P T, PTT, AMYL, CMP, LIPA, PHOS ####[place] [address]#### TRANSF ####[phone] Magnesiumon 10-03-2017 Magnesium 1.8 mg/dL Normal 1.7-2.6 [facility] Comment on above: Performed By: #### P T, PTT, AMYL, CMP, LIPA, PHOS ####[place] [address]#### TRANSF ####[place] [phone] NURSING PROGon 10-03-2017 NURSING PROG HNO ID: [id number] thor: Homa (Rn) Bonnie, MOUSTAPHAervice: (none)Author Type: Registered NurseType: Nursing Progress NoteFiled: 10/04/2017 1:34 AMNote Text: Nursing Progress NotePatient Name: Rocio Bodureaux: [id number] Location: [place] [address]/KM-SI0Y-20 ____Daily Note: Pt AANDOx3. Adequate saturation on RA. ABD distended, tender totouch. 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 Pt states he has passed a little gas. Mancilla drainingclear, yellow. Epidural infusing per order. Tube feed at 50cc/hr.Ambulated pod with x1 assist and walker. No needs voiced. Call lightwithin reach, will continue to monitor.This note was completed by: Homa Nicole RN [facility] NURSING PROG HNO ID: [id number] thor: Serena (Rn) Terry RNService: NursingAuthor Type: Registered NurseType: Nursing Progress NoteFiled: 10/03/2017 6:32 PMNote Text: Nursing Progress NotePatient Name: Rocio Boudreaux: [id number] Location: /[id number] ____Daily Note: Late entry for 1100: Pt ambulated mcc around POD usingwalker ( standby assistance). Pt tolerated well. Currently sitting inrecliner chair. Family at bedside.1300: Diet advanced to full liquids. Tolerating well. Creon given withlunch. Handout given and teaching provided about new medication.1500: Right biliary drain flushed with 5cc NS per order. New drainsponges applied to right and left ROMINA drains.1530: Pt ambulated mcc around POD for 2nd time this [id number]: Resident into remove pt's ROMINA drains. PtThis note was completed by: Serena Stewart RN [facility] NURSING PROG HNO ID: [id number] thor: Jennifer KenRn) Eleanor, RNService: (none)Author Type: Registered NurseType: Nursing Progress NoteFiled: 10/02/2017 11:39 PMNote Text: Nursing Progress NotePatient Name: Rocio HayesN: [id number] Location: /FI-[id number]-28 ____ Pt up in chair at start of shift. Pts and sister staying in room wpt. Rates pain 1 , states epidural adequate for pain control. Bili drainflushed earlier per orders, flushes well. Pt denies nausea with clears.BS hypo. Denies passing flatus.This note was completed by: Jennifer Webster RN [facility] PROGRESSon 10-03-2017 PROGRESS HNO ID: [id number] thor: Mela Carroll: General SurgeryAuthor Type: PhysicianType: Progress NotesFiled: 10/03/2017 1:26 PMNote Text:Covering MDNo new c/oPain well controlledCont epidural for nowWill remove drains if no evid for leakPt appreciative of Molly Verdin MD [facility] PROGRESS HNO ID: [id number] thor: Flynn (Res) ASHLEY Laraervice: General SurgeryAuthor [...] lb 12.3 oz) SpO2 97% BMI 29.77 kg/i5RGZJKKQ: no acute distressABDOMEN: soft, diffusely tender, nondistended. Incision c/d/i. Foleydraining yellow-red urine. Both JPs with serosanguinous fluid.Labs:CBC, BMP, MG, PHOSRecent Labs 115 10/01/181732805WBC 5.92 6.15 6.47 -- 8.38 < > [...] 0.3 0.5LACT -- -- -- 2.3*CoagsRecent Labs 09/24/1808860236YNLY 25.9 24.9 -- -- 39.8* 31.6INR 1.2 1.1 1.0 2.0* 2.0* 1.5*Intake and Output:Date 10/01/17699 - 10/02/17 0659 10/02/17699 - 10/03/17 0659Shift 4147-5047 5013-5672 3567-8546 24 Hour Total 3540-4368 9753-71894958-0032 24 Hour TotalINTAKE PO 0 97 482 [...] 2886 601.6 3637.6 60 60OUTPUT Urine 310 652 687 9752 75 75 Tube Output ( Indwelling Urinary Catheter 09/30/17 0909 Mancilla 16Fr) 310 900 023 1903 75 75 Tubes 70 135 35 240 [...] BM (mL) 0 0 Shift Total 380 949 935 0924 75 75Weight (kg) 81.1 81.1 88.8 88.8 88.8 88.8 88.8 88.8Current Medications:Current hospital medications:oxyCODONE IR 5 mg tab(s) (ROXICODONE) 5 mg ORAL q 4 H FNNjnewvm-twnxsozl-wimfmxh 2 capsule cap(s) (CREON 24) 2 capsule ORAL TID wMEALSacetaminophen 650 mg tab(s) (TYLENOL) 650 mg ORAL q 6 Hdocusate sodium 100 mg cap(s) (COLACE) 100 mg ORAL BIDatorvastatin 40 mg tab(s) (LIPITOR) 40 mg ORAL/FEEDING TUBE AT BEDTIMEphenol 1 Hodges (CHLORASEPTIC) 1 Hodges MUCOUS MEMBRANE (TOPICAL MOUTH ANDTHROAT) q 2 [...] mg ORAL q 8 HHYDROmorphone 0.5 mg/mL DRY PRIMER POWDER BLENDER CLINICIAN DOSE 0.2 mg 0.2 mg INTRAVENOUS q 6 HPRNinsulin lispro injection (rapid acting) (HumaLOG) SUBCUTANEOUS q 6 Hheparin 5,000 Units injection 5,000 Units SUBCUTANEOUS q 12 Hmetoclopramide HCl 10 mg injection (REGLAN) 10 mg INTRAVENOUS q 6 H PRN Normal [facility] Phosphoruson 10-03-2017 Phosphate 3.1 mg/dL Normal 2.5-4.5 [facility] Comment on above: Performed By: #### P T, PTT, AMYL, CMP, LIPA, PHOS ####[facility] [place], [place] [phone]#### TRANSF ####[facility] [place], [place] [phone] Amylaseon 10-02-2017 Amylase 45 U/L Normal 0-137 [facility] Comment on above: Performed By: #### P T, PTT, AMYL, CMP, LIPA, PHOS ####[facility] [place], [place] [phone]#### TRANSF ####[facility] [place], [place] [phone] CASE MANAGEMon 10-02-2017 CASE MANAGEM HNO ID: [id number] thor: Lee Ann (Rn) Sveta, RNService: Care ManagementAuthor Type: Registered NurseType: Care Mgt Progress NoteFiled: 10/02/2017 11:48 AMNote Text:CARE MANAGEMENT PROGRESS NOTESERVICE DATE: 10/02/2017SERVICE TIME: 11:44 AM LOS: 2 daysFREEDOM OF CHOICE GIVEN:Yes patientProvider List: Alf FacilityNeeds Prior to Discharge: Accepting FacilityTCC met with patient and sister Briana at bedside. Discussed PTrecommendations for acute rehab--[facility] closest acute rehab that acceptshis insurance, patient states wants to be closer to home-[facility] and states would prefer a SNF closer to home. Givenprovider list, patient and sister want to look over the list beforedeciding. CM will continue to assist with transition of care needs.SIGNATURE: Lee Ann Bangura RN PATIENT NAME: Rocio VenturaDATE: October 02, 2017 : 11:44 AM PAGER/CONTACT #: [phone] Normal [facility] CBCon 10-02-2017 Erythrocyte distribution width Auto Ratio (RBC) 16.2 % High 11.5-15.0 [facility] Comment on above: Performed By: #### P T, PTT, AMYL, CMP, LIPA, PHOS ####[facility] [place], [place] [phone]#### TRANSF ####[place] [address] [place], [place] [phone] Erythrocytes (RBC) 3.38 10*6/uL Low 4.20-6.00 [facility] Comment on above: Performed By: #### P T, PTT, AMYL, CMP, LIPA, PHOS ####[place] [address]#### TRANSF ####[place] [address] Hematocrit (HCT) 26.4 % Low 39.0-51.0 [facility] Comment on above: Performed By: #### P T, PTT, AMYL, CMP, LIPA, PHOS ####[place] [address]#### TRANSF ####[place] [phone] Hemoglobin mass conc (Bld) 8.6 g/dL Low 13.0-17.0 [facility] Comment on above: Performed By: #### P T, PTT, AMYL, CMP, LIPA, PHOS ####[place] [address]#### TRANSF ####[place] [address] MCH 25.4 pG Low 26.0-34.0 [facility] Comment on above: Performed By: #### P T, PTT, AMYL, CMP, LIPA, PHOS ####[place] [address]#### TRANSF ####[place] [address] MCHC mass conc (RBC) 32.6 g/dL Normal 30.5-36.0 [facility] Comment on above: Performed By: #### P T, PTT, AMYL, CMP, LIPA, PHOS ####[place] [address]#### TRANSF ####[place] [phone] MCV 78.1 fL Low 80.0-100.0 [facility] Comment on above: Performed By: #### P T, PTT, AMYL, CMP, LIPA, PHOS ####[address]#### TRANSF ####[place] [phone] Platelet mean volume (PMV) 9.4 fL Normal 9.0-12.7 [facility] Comment on above: Performed By: #### P T, PTT, AMYL, CMP, LIPA, PHOS ####[place] [address]#### TRANSF ####[place] [address] Platelets 210 10*3/uL Normal 150-400 [facility] Comment on above: Performed By: #### P T, PTT, AMYL, CMP, LIPA, PHOS ####[place] [address]#### TRANSF ####[place] [address] WBC (Leukocytes) 6.15 10*3/uL Normal 3.70-11.00 [facility] Comment on above: Performed By: #### P T, PTT, AMYL, CMP, LIPA, PHOS ####[address]#### TRANSF ####[place] [address] CBC and Differentialon 10-02 Abs Baso <0.03 Normal <0.11 [facility] Comment on above: Performed By: #### P T, PTT, AMYL, CMP, LIPA, PHOS ####[place] [address]#### TRANSF ####[place] [address] Abs Lamar 0.49 k/uL Normal <0.87 [facility] Comment on above: Performed By: #### P T, PTT, AMYL, CMP, LIPA, PHOS ####[place] [address]#### TRANSF ####[place] [address] Abs Neut 4.18 k/uL Normal 1.45-7.50 [facility] Comment on above: Performed By: #### P T, PTT, AMYL, CMP, LIPA, PHOS ####[place] [address]#### TRANSF ####[place] [address] Basophils/100 WBC Auto (Bld) 0.2 % Normal [facility] Comment on above: Performed By: #### P T, PTT, AMYL, CMP, LIPA, PHOS ####[place] [address]#### TRANSF ####[place] [address] DTYPE Auto Diff Normal [facility] Comment on above: Performed By: #### P T, PTT, AMYL, CMP, LIPA, PHOS ####[place] [address]#### TRANSF ####[place] [address] Eosinophils 0.23 10*3/uL Normal <0.46 [facility] Comment on above: Performed By: #### P T, PTT, AMYL, CMP, LIPA, PHOS ####[place] [address]#### TRANSF ####[place] [address] Eosinophils/100 leukocytes 3.6 % Normal [facility] Comment on above: Performed By: #### P T, PTT, AMYL, CMP, LIPA, PHOS ####[place] [address]#### TRANSF ####[place] [address] Erythrocyte distribution width Auto Ratio (RBC) 16.6 % High 11.5-15.0 [facility] Comment on above: Performed By: #### P T, PTT, AMYL, CMP, LIPA, PHOS ####[place] [address]#### TRANSF ####[place] [address] Erythrocytes (RBC) 3.13 10*6/uL Low 4.20-6.00 [facility] Comment on above: Performed By: #### P T, PTT, AMYL, CMP, LIPA, PHOS ####[place] [address]#### TRANSF ####[place] [address] Hematocrit (HCT) 24.3 % Low 39.0-51.0 [facility] Comment on above: Performed By: #### P T, PTT, AMYL, CMP, LIPA, PHOS ####[place] [address]#### TRANSF ####[place] [address] Hemoglobin mass conc (Bld) 7.8 g/dL Low 13.0-17.0 [facility] Comment on above: Performed By: #### P T, PTT, AMYL, CMP, LIPA, PHOS ####[place] [address]#### TRANSF ####[phone] Lymphocytes 1.56 10*3/uL Normal 1.00-4.00 [facility] Comment on above: Performed By: #### P T, PTT, AMYL, CMP, LIPA, PHOS ####[place] [address]#### TRANSF ####[place] [address] Lymphocytes/100 leukocytes 24.1 % Normal [facility] Comment on above: Performed By: #### P T, PTT, AMYL, CMP, LIPA, PHOS ####[place] [address]#### TRANSF ####[place] [address] MCH 24.9 pG Low 26.0-34.0 [facility] Comment on above: Performed By: #### P T, PTT, AMYL, CMP, LIPA, PHOS ####[place] [address]#### TRANSF ####[place] [address] MCHC mass conc (RBC) 32.1 g/dL Normal 30.5-36.0 [facility] Comment on above: Performed By: #### P T, PTT, AMYL, CMP, LIPA, PHOS ####[place] [address]#### TRANSF ####[place] [phone] MCV 77.6 fL Low 80.0-100.0 [facility] Comment on above: Performed By: #### P T, PTT, AMYL, CMP, LIPA, PHOS ####[place] [address]#### TRANSF ####[place] [phone] Monocytes/100 leukocytes 7.6 % Normal [facility] Comment on above: Performed By: #### P T, PTT, AMYL, CMP, LIPA, PHOS ####[place] [address]#### TRANSF ####[place] [address] Neutrophils/100 WBC Auto (Bld) 64.5 % Normal [facility] Comment on above: Performed By: #### P T, PTT, AMYL, CMP, LIPA, PHOS ####[place] [address]#### TRANSF ####[place] [phone] Platelet mean volume (PMV) 9.1 fL Normal 9.0-12.7 [facility] Comment on above: Performed By: #### P T, PTT, AMYL, CMP, LIPA, PHOS ####[place] [address]#### TRANSF ####[place] [phone] Platelets 207 10*3/uL Normal 150-400 [facility] Comment on above: Performed By: #### P T, PTT, AMYL, CMP, LIPA, PHOS ####[place] [address]#### TRANSF ####[place] [phone] WBC (Leukocytes) 6.47 10*3/uL Normal 3.70-11.00 [facility] Comment on above: Performed By: #### P T, PTT, AMYL, CMP, LIPA, PHOS ####[facility] [place], [place] [phone]#### TRANSF ####[facility] [address] [place], [place] [phone] CONSULT PROGon 10-02-2017 CONSULT PROG HNO ID: [id number] thor: Matilda Hydee: AnesthesiologyAuthor Type: AnesthesiologistType: Consult Progress NoteFiled: 10/02/2017 9:33 AMNote Text:APS EPIDURAL CATHETER PROGRESS NOTESERVICE DATE: 10/02/2017SERVICE TIME: 9:27 AMPRIMARY SERVICE: HBSSubjectiveINTERVAL HPI:Rocio Jackson is a 62 year old male who is POD #2 S/P WhipplePatient also has an IV DRY PRIMER POWDER BLENDER: NoIV Line Appears Intact YesPain at Surgical [...] Placed: Day of surgeryMEDICATIONS:I have interrogated the DRY PRIMER POWDER BLENDER pump(s) for the correct settings and solution:Yes.EPIDURAL MEDICATIONS AND DRY PRIMER POWDER BLENDER SETTINGS: Other: bupivicaine + hydromorphoneBasal Rate: 4 mL/hr.Patient Demand Bolus: 3 mL.Lockout Interval: 15 Minutes.Additional Medication(s) GIven: See BelowAnticoagulation Therapy: noneCurrent hospital medications:magnesium sulfate in water 2 g in sterile water 50 ml 2 g INTRAVENOUS ONCEsodium phosphate 15 mmol in D5W 250 mL 15 mmol INTRAVENOUS ONCEdocusate sodium 100 mg cap(s) (COLACE) 100 mg ORAL BIDphenol 1 Hodges (CHLORASEPTIC) 1 Hodges MUCOUS MEMBRANE (TOPICAL MOUTH ANDTHROAT) q 2 [...] (MOTRIN) 800 mg ORAL q 8 HHYDROmorphone DRY PRIMER POWDER BLENDER 0.5 mg/mL in NaCl 0.9% 100 mL INTRAVENOUS CONTINUOUSHYDROmorphone 0.5 mg/mL DRY PRIMER POWDER BLENDER CLINICIAN DOSE 0.2-0.4 mg 0.2-0.4 mgINTRAVENOUS (PACU) PRNHYDROmorphone 0.5 mg/mL DRY PRIMER POWDER BLENDER CLINICIAN DOSE 0.2 mg 0.2 mg INTRAVENOUS q 6 HPRNinsulin lispro injection (rapid acting) (HumaLOG) SUBCUTANEOUS q 6 Hheparin 5,000 Units injection 5,000 Units SUBCUTANEOUS q 12 Hmetoclopramide HCl 10 mg injection (REGLAN) 10 mg INTRAVENOUS q 6 H PRNPHYSICAL EXAM:Patient Vitals for the past 4 hrs: BP Temp Temp src Pulse Resp SpO2 Qjlagw88/06/18 0800 134/79 36.7 ?C (98 ?F) Oral [...] HPI above. Pain wellcontrolled with current epidural DRY PRIMER POWDER BLENDER.Assessment: Pain adequately controlled.Patient satisfied with analgesic regimen..Plan of Care: Continue epidural analgesia to promote comfort, mobility,and pulmonary toilet.Plan to start roxicodone tomorrow once the patient continue to tolerateenteral nutrition and hold epidural catheter.SIGNATURE: Matilda Raya MD PATIENT NAME: Rocio JacksonDATE: October 02, 2017 : 9:27 AM PAGER/CONTACT #: [facility] Metabolic Panelon 10-02 Alanine aminotransferase (ALT) 27 U/L Normal 5-50 [facility] Comment on above: Performed By: #### P T, PTT, AMYL, CMP, LIPA, PHOS ####[place] [address]#### TRANSF ####[place] [address] Albumin 2.5 g/dL Low 3.5-5.0 [facility] Comment on above: Performed By: #### P T, PTT, AMYL, CMP, LIPA, PHOS ####[place] [address]#### TRANSF ####[place] [address] Alkaline phosphatase (ALP) 68 U/L Normal 40-150 [facility] Comment on above: Performed By: #### P T, PTT, AMYL, CMP, LIPA, PHOS ####[place] [address]#### TRANSF ####[place] [address] Anion gap 6 mmol/L Low 9-18 [facility] Comment on above: Performed By: #### P T, PTT, AMYL, CMP, LIPA, PHOS ####[place] [address]#### TRANSF ####[place] [address] Aspartate aminotransferase (AST) 23 U/L Normal 7-40 [facility] Comment on above: Performed By: #### P T, PTT, AMYL, CMP, LIPA, PHOS ####[place] [address]#### TRANSF ####[place] [id number] Bilirubin (total) 0.3 mg/dL Normal 0.0-1.5 [facility] Comment on above: Performed By: #### P T, PTT, AMYL, CMP, LIPA, PHOS ####[place] [address]#### TRANSF ####[address] [place] [id number] Calcium 8.3 mg/dL Low 8.5-10.5 [facility] Comment on above: Performed By: #### P T, PTT, AMYL, CMP, LIPA, PHOS ####[place] [address]#### TRANSF ####[place] [address] Chloride 103 mmol/L Normal 98-110 [facility] Comment on above: Performed By: #### P T, PTT, AMYL, CMP, LIPA, PHOS ####[place] [address]#### TRANSF ####[place] [address] CO2 26 mmol/L Normal 23-32 [facility] Comment on above: Performed By: #### P T, PTT, AMYL, CMP, LIPA, PHOS ####[place] [address]#### TRANSF ####[address] [place] [address] Creatinine 0.64 mg/dL Low 0.70-1.40 [facility] Comment on above: Performed By: #### P T, PTT, AMYL, CMP, LIPA, PHOS ####[place] [address]#### TRANSF ####[address] Av[address] [place] [phone] eGFR (non-black) mL/min/{1.73_m2} Normal >60 [facility] Comment on above: Performed By: #### P T, PTT, AMYL, CMP, LIPA, PHOS ####[place] [address]#### TRANSF ####[place] [address] Glucose mass conc 154 mg/dL High 65-100 [facility] Comment on above: Performed By: #### P T, PTT, AMYL, CMP, LIPA, PHOS ####[place] [address]#### TRANSF ####[place] [address] Potassium molar conc 4.2 mmol/L Normal 3.5-5.0 [facility] Comment on above: Performed By: #### P T, PTT, AMYL, CMP, LIPA, PHOS ####[address]#### TRANSF ####[place] [phone] Protein 5.3 g/dL Low 6.0-8.4 [facility] Comment on above: Performed By: #### P T, PTT, AMYL, CMP, LIPA, PHOS ####[place] [address]#### TRANSF ####[place] [address] Sodium 135 mmol/L Normal 135-146 [facility] Comment on above: Performed By: #### P T, PTT, AMYL, CMP, LIPA, PHOS ####[place] [address]2456[address]#### TRANSF ####[place] [phone] Urea nitrogen 22 mg/dL Normal 10-25 [facility] Comment on above: Performed By: #### P T, PTT, AMYL, CMP, LIPA, PHOS ####[place] [address]2456[address]#### TRANSF ####[place] [phone] Magnesiumon 10-02-2017 Magnesium 1.9 mg/dL Normal 1.7-2.6 [facility] Comment on above: Performed By: #### P T, PTT, AMYL, CMP, LIPA, PHOS ####[place] [address]2456[address]#### TRANSF ####[phone] NURSING PROGon 10-02-2017 NURSING PROG HNO ID: [id number] thor: Luis (Rn) Rita, RNService: (none)Author Type: Registered NurseType: Nursing Progress NoteFiled: 10/02/2017 6:43 PMNote Text: Nursing Progress NotePatient Name: Rocio Boudreaux: [id number] Location: [place] [address]/[id number] ____Daily Note:1600: pt transferred [facility]. Pt sitting in chair.Blood transfusion infusing well without difficulty. Nurse emptied JPdrains x2, see IANDO. Pt states he has no pain at this time. Pt has abuprivacaine-hydromorphone epidural. Epidural control in hand. Willmonitor, call light in reach.1833: blood transfusion completed. Pt tolerated well.This note was completed by: Luis Salinas RN [facility] NURSING PROG HNO ID: [id number] thor: Sabrina (Rn) Abraham, MOUSTAPHAervice: NursingAuthor Type: Registered NurseType: Nursing Progress NoteFiled: 10/02/2017 2:48 PMNote Text: Nursing Progress NotePatient Name: Rocio JacksonMRN: [id number] Location: [place] [address]/RY-ASI-17 ___Daily Note:0700 bedside report received from KEVNI Valerio. Gtt checked.Patient [id number] patient assessed see [id number] OT at bedside assessing patient.0840 patient walked with a walker and OT 1 [id number] patient tolerates chair 1 assist up to stand and march in [id number] called report to [id number] note was completed by: Sabrina Cornejo, KEVIN [facility] PROGRESSon 10-02-2017 PROGRESS HNO ID: [id number] thor: Rick Diaze: Critical CareAuthor Type: PhysicianType: [...] discussed with ICU Staff Dr. Boothe.Kolby Brown MDGenecleveland clinic hillcrest hospital Surgery[C]: [phone] [P]: 45345Mfmb: 10/02/2017Time: 10:32 AMSubjective:Interval Events: NAEON. TFs at goal.Physical Exam:BP 134/79 Pulse 88 Temp 36.7 ?C (98 ?F) (Oral) Resp 19 Ht 172.7 cm(5' 7.99 ) Wt 88.8 kg (195 lb 12.3 oz) SpO2 98% BMI 29.77 kg/i6STGHUVN: Well appearing 62 year old male in no distressNEURO: AAOx3, SPS18HSBBE: Atraumatic, corpak in palceCHEST: nonlabored breathing on RA. NL rate and rhythmABDOMEN: Soft, non-distended, mildly tenderEXTREMITIES: Warm well perfused, no deformitiesLabs:CBC, BMP, MG, PHOSRecent Labs 10/01/181732100 8009/24/1808WBC 6.47 -- 8.38 8.24 7.14 7.49 4.87HB [...] 0.3LACT -- -- 2.3* --CoagsRecent Labs 09/24/18083 08/15/1820333525YDEU 25.9 24.9 -- -- 39.8* 31.6INR 1.2 1.1 1.0 2.0* 2.0* 1.5*Intake and Output:Date 10/01/17 07 - 10/02/17 0659 10/02/17 07 - 10/03/17 0659Shift 5755-4409 9571-9134 3358-7879 24 Hour Total 4791-5428 0652-63604912-9654 24 Hour TotalINTAKE PO 0 97 482 [...] 2886 601.6 3637.6 60 60OUTPUT Urine 310 246 186 8695 75 75 Tube Output ( Indwelling Urinary Catheter 09/30/17 0909 Mancilla 16Fr) 310 603 454 8966 75 75 Tubes 70 135 35 240 [...] BM (mL) 0 0 Shift Total 380 659 486 0276 75 75Weight (kg) 81.1 81.1 88.8 88.8 88.8 88.8 88.8 88.8Current Medications:Current hospital medications:magnesium sulfate in water 2 g in sterile water 50 ml 2 g INTRAVENOUS ONCEsodium phosphate 15 mmol in D5W 250 mL 15 mmol INTRAVENOUS ONCEdocusate sodium 100 mg cap(s) (COLACE) 100 mg ORAL BIDphenol 1 Hodges (CHLORASEPTIC) 1 Hodges MUCOUS MEMBRANE (TOPICAL MOUTH ANDTHROAT) q 2 [...] (MOTRIN) 800 mg ORAL q 8 HHYDROmorphone DRY PRIMER POWDER BLENDER 0.5 mg/mL in NaCl 0.9% 100 mL INTRAVENOUS CONTINUOUSHYDROmorphone 0.5 mg/mL DRY PRIMER POWDER BLENDER CLINICIAN DOSE 0.2-0.4 mg 0.2-0.4 mgINTRAVENOUS (PACU) PRNHYDROmorphone 0.5 mg/mL DRY PRIMER POWDER BLENDER CLINICIAN DOSE 0.2 mg 0.2 mg INTRAVENOUS [...] 5 mg tab Take by mouth once daily.[facility] STAFF PHYSICIAN SUPERVISING RESIDENTI have [...] of SERVICE: 10/02/2017TIME of SERVICE: 12:44 PM [facility] PROGRESS HNO ID: [id number] thor: Michael Cedillo) AugustinService: General SurgeryAuthor Type: [...] that 2pm- IPCs, SQH- anticipate transfer to [facility] to be discussed with staffSubjective:No acute events overnight. Tolerated sips of liquids no n/v. No flatus orBM.Physical Exam:BP 134/79 Pulse 88 Temp 36.7 ?C (98 ?F) (Oral) Resp 19 Ht 172.7 cm(5' 7.99 ) Wt 88.8 kg (195 lb 12.3 oz) SpO2 98% BMI 29.77 kg/g2MKYGVIE: no acute distressABDOMEN: soft, diffusely tender, nondistended. [...] 0.5 0.3LACT -- -- 2.3* --CoagsRecent Labs 09/24/1808 242119ZOZN 25.9 24.9 -- -- 39.8* 31.6INR 1.2 1.1 1.0 2.0* 2.0* 1.5*Intake and Output:Date 10/01/17 07 - 10/02/17 0659 10/02/17 07 - 10/03/17 0659Shift 6790-8798 9379-1345 0900-7872 24 Hour Total 9540-7882 1283-21422246-0530 24 Hour TotalINTAKE PO 0 97 482 [...] 2886 601.6 3637.6 60 60OUTPUT Urine 310 574 926 2582 75 75 Tube Output ( Indwelling Urinary Catheter 09/30/17 0909 Mancilla 16Fr) 310 702 215 6979 75 75 Tubes 70 135 35 240 [...] BM (mL) 0 0 Shift Total 380 775 822 6667 75 75Weight (kg) 81.1 81.1 88.8 88.8 88.8 88.8 88.8 88.8Current Medications:Current hospital medications:magnesium sulfate in water 2 g in sterile water 50 ml 2 g INTRAVENOUS ONCEsodium phosphate 15 mmol in D5W 250 mL 15 mmol INTRAVENOUS ONCEdocusate sodium 100 mg cap(s) (COLACE) 100 mg ORAL BIDphenol 1 Hodges (CHLORASEPTIC) 1 Hodges MUCOUS MEMBRANE (TOPICAL MOUTH ANDTHROAT) q 2 [...] (MOTRIN) 800 mg ORAL q 8 HHYDROmorphone DRY PRIMER POWDER BLENDER 0.5 mg/mL in NaCl 0.9% 100 mL INTRAVENOUS CONTINUOUSHYDROmorphone 0.5 mg/mL DRY PRIMER POWDER BLENDER CLINICIAN DOSE 0.2-0.4 mg 0.2-0.4 mgINTRAVENOUS (PACU) PRNHYDROmorphone 0.5 mg/mL DRY PRIMER POWDER BLENDER CLINICIAN DOSE 0.2 mg 0.2 mg INTRAVENOUS q 6 HPRNinsulin lispro injection (rapid acting) (HumaLOG) SUBCUTANEOUS q 6 Hheparin 5,000 Units injection 5,000 Units SUBCUTANEOUS q 12 Hmetoclopramide HCl 10 mg injection (REGLAN) 10 mg INTRAVENOUS q 6 H PRNSignature: Jennifer Adan, MDDate: October 02, 2017Time: 9:55 AMPatient Name: Rocio VenturaPETRONA: [id number]*Please page the reinforcing iron and rebar workers pager from 6pm-6am and all day on weekends* Normal [facility] Phosphoruson 10-02-2017 Phosphate 2.3 mg/dL Low 2.5-4.5 [facility] Comment on above: Performed By: #### P T, PTT, AMYL, CMP, LIPA, PHOS ####[facility] [place], [place] [phone]#### TRANSF ####[facility] [address] [place], [place] [phone] THERAPY NTon 10-02-2017 THERAPY NT HNO ID: [id number] thor: Jacqueline (Ot) HallService: Occupational TherapyAuthor Type: Occupational TherapistType: Therapy (PT/OT/Speech/Resp)Filed: 10/02/2017 8:55 AMNote Text:Occupational Therapy EvaluationSERVICE DATE: 10/02/2017SERVICE TIME: 0820 to 0843ROOM: CP-QEH-09Rgwsxhoxnee Discharge Disposition: Acute RehabJustification For Post Acute [...] Pt?s pertinent PMH includes: DM, HTN,CAD, glaucoma, [place], cholecystectomy c/b leak found to have duodenal [...] Involving Cognitive Functions andAwarenessInterventions Provided: Evaluation;Therapeutic Activity (65157)$ Evaluation-Low (58006) Billed Units: 1 unitTherapeutic Activity (85902) Treatment Minutes: 81 unitSkilled Intervention(s): Instructed patient [...] has assist with all IADLs. Works in [employer]. Amb Ind.OBJECTIVE:Orientation Deficits: ConfusedResponsiveness: AwakeFollows Commands: 2-step [...] RE: Jacqueline Arshad OTR/L PATIENT NAME: Rocio FrischDATE: October 02, 2017 : 8:50 AM PAGER: [phone] Normal [facility] Type and Screenon 10-02-2017 ABO/RH(D) Positive [facility] Comment on above: Performed By: #### P T, PTT, AMYL, CMP, LIPA, PHOS ####[facility] [place], [place] [phone]#### TRANSF ####[facility] [place], [place] [phone] Antibody Screen Negative [facility] Comment on above: Performed By: #### P T, PTT, AMYL, CMP, LIPA, PHOS ####[facility] [place], [place] [phone]#### TRANSF ####[place] [address] [place], [place] [phone] Amylaseon 10-01-2017 Amylase 151 U/L High 0-137 [facility] Comment on above: Performed By: #### P T, PTT, AMYL, CMP, LIPA, PHOS ####[facility] [place] [phone]#### TRANSF ####[address] [phone] Amylase,Body Fluidon 018 Amylase 817 U/L Critically abnormal See Comment [facility] Comment on above: Result Comment: (NOT E)PLEURAL [...] CLSI document C49-A. SAIMA Contreras: Clinical LaboratoryStandards [place]; 2007.3. Kya CLH, Angelia RC, Nimo DJ. Use of cyst fluid CEA,CA19-9, and amylase for evaluation of pancreatic lesions. ClinicalBiochemistry. 2009;42:0012-2351.This test was developed and its performance characteristicsdetermined by [facility]'s [facility] CenterD[facility] Pathology andLabsouth [facility] Medicine [place] ([facility]).It has not been cleared or approved by the FDA. [facility] is regulatedunder CLIA as qualified to perform high-complexity testing.This test is used for clinical purposes. It should not be regarded asinvestigational or for research. Performed By: #### P T, PTT, AMYL, CMP, LIPA, PHOS ####[facility] [place], [place] [phone]#### TRANSF ####[facility] [address] [place], [place] [phone] Amylase 1954 U/L Critically abnormal See Comment [facility] Comment on above: Result Comment: (NOT E)PLEURAL [...] CLSI document C49-A. SAIMA Contreras: Clinical LaboratoryStandards [place]; 2007.3. Kya EDUARDOH, Angelia RC, Nimo DJ. Use of cyst fluid CEA,CA19-9, and amylase for evaluation of pancreatic lesions. ClinicalBiochemistry. 2009;42:3764-6705.This test was developed and its performance characteristicsdetermined by [facility]'s [facility] Pathology andLaboratory Medicine [place] ([facility]).It has not been cleared or approved by the FDA. [facility] is regulatedunder CLIA as qualified to perform high-complexity testing.This test is used for clinical purposes. It should not be regarded asinvestigational or for research. Performed By: #### P T, PTT, AMYL, CMP, LIPA, PHOS ####[place] [address]#### TRANSF ####[place] [address] Fluid Type Peritoneal Fluid Normal [facility] Comment on above: Performed By: #### P T, PTT, AMYL, CMP, LIPA, PHOS ####[place] [address]#### TRANSF ####[place] [phone] Result Comment: LEFT CASE MGT INIT SANDRAon 2017 CASE MGT INIT SANDRA HNO ID: [id number] thor: Catherine Humphries (Rn) Leeann, RNService: Case ManagementAuthor Type: Registered NurseType: Care Mgt Initial AssessmentFiled: 10/01/2017 12:22 PMNote Text:CARE MANAGEMENT: ASSESSMENT AND DISCHARGE PLANSERVICE DATE: 10/01/2017SERVICE TIME: 11:13 amPRICOBRE VALLEY REGIONAL MEDICAL CENTERY CARE PHYSICIAN:Adriane Nichols, DOPhone: [phone] STATUS: InpatientNeeds Prior to Discharge: To Be Determined;OT/PT EvaluationMEDICAL:Patient/Re presentative Stated Goals:To improve my functional statusTo return home to life as it wasHealth Insurance:[employer] [facility] Issues Impacting Discharge Plan: DM, HTNLast Admission [...] Services or Home Care? [facility]Health Care Agency: [facility]; ; Active.Equipment Prior to Admission: Tub bench/chairWalkerHas the Patient Been in a Alf Facility in the Past 30 days?Yes. Where and Dates: [facility] in [place] OSQPNY:Emily ing Arrangement: HomeLives With: Sister since his discharge from [facility] in August of 2017.Financial Resources: Patient is employedPrimary Contact: Extended Emergency Contact InformationPrimary Emergency Contact: Corazon Mullerddress: [place], [place] [address]Fwaq Piehelwm: SiblingSupportive: YesOther Important Patient Contacts: NoneCaregiver Assessment:Caregiver [...] - 0I feel financially burdened by my der-jy-snxkwi expenses for myprescription medication: Disagree mostly -0Patient [...] OF CHOICE EXPLAINED:Yes on 10/01/17POTENTIAL TRANSITION PLANSHome [facility]/Intermediate Care FacilityCM met with patient at bedside. His two sisters were in the room at thetime, and patient approved their staying in the room during theassessment. 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 He currently lives with his sister who ishelping with his care since his discharge from [facility] in August. He is active with [facility], and stated he washappy with their services. Patient will need a PT/OT evaluation todetermine skilled/safety needs. CM will continue to follow plan of care toassist with discharge planning.SIGNATURE: Catherine Bradshaw RN PATIENT NAME: Rocio JacksonDATE: October 01, 2017 : 11:13 AM PAGER/CONTACT #: [phone] Normal [facility] CBC and Differentialon 10-01 Abs Baso <0.03 Normal <0.11 [facility] Comment on above: Performed By: #### P T, PTT, AMYL, CMP, LIPA, PHOS ####[place] [address]#### TRANSF ####[place] [phone] Abs Lamar 0.60 k/uL Normal <0.87 [facility] Comment on above: Performed By: #### P T, PTT, AMYL, CMP, LIPA, PHOS ####[place] [phone]#### TRANSF ####[phone] Abs Neut 5.57 k/uL Normal 1.45-7.50 [facility] Comment on above: Performed By: #### P T, PTT, AMYL, CMP, LIPA, PHOS ####[place] [phone]#### TRANSF ####[place] [address] Basophils/100 WBC Auto (Bld) 0.0 % Normal [facility] Comment on above: Performed By: #### P T, PTT, AMYL, CMP, LIPA, PHOS ####[place] [address]#### TRANSF ####[place] [phone] DTYPE Auto Diff Normal [facility] Comment on above: Performed By: #### P T, PTT, AMYL, CMP, LIPA, PHOS ####[place] [address]#### TRANSF ####[place] [address] Eosinophils 10*3/uL Normal <0.46 [facility] Comment on above: Performed By: #### P T, PTT, AMYL, CMP, LIPA, PHOS ####[place] [address]#### TRANSF ####[place] [address] Eosinophils/100 leukocytes 0.0 % Normal [facility] Comment on above: Performed By: #### P T, PTT, AMYL, CMP, LIPA, PHOS ####[place] [address]#### TRANSF ####[place] [address] Erythrocyte distribution width Auto Ratio (RBC) 16.4 % High 11.5-15.0 [facility] Comment on above: Performed By: #### P T, PTT, AMYL, CMP, LIPA, PHOS ####[place] [address]#### TRANSF ####[place] [address] Erythrocytes (RBC) 3.53 10*6/uL Low 4.20-6.00 [facility] Comment on above: Performed By: #### P T, PTT, AMYL, CMP, LIPA, PHOS ####[place] [address]#### TRANSF ####[place] [address] Hematocrit (HCT) 27.4 % Low 39.0-51.0 [facility] Comment on above: Performed By: #### P T, PTT, AMYL, CMP, LIPA, PHOS ####[place] [address]#### TRANSF ####[place] [address] Hemoglobin mass conc (Bld) 8.8 g/dL Low 13.0-17.0 [facility] Comment on above: Performed By: #### P T, PTT, AMYL, CMP, LIPA, PHOS ####[place] [address]#### TRANSF ####[place] [address] Lymphocytes 2.21 10*3/uL Normal 1.00-4.00 [facility] Comment on above: Performed By: #### P T, PTT, AMYL, CMP, LIPA, PHOS ####[place] [address]#### TRANSF ####[place] [address] Lymphocytes/100 leukocytes 26.4 % Normal [facility] Comment on above: Performed By: #### P T, PTT, AMYL, CMP, LIPA, PHOS ####[place] [address]#### TRANSF ####[place] [address] MCH 24.9 pG Low 26.0-34.0 [facility] Comment on above: Performed By: #### P T, PTT, AMYL, CMP, LIPA, PHOS ####[place] [address]#### TRANSF ####[place] [address]174[address] MCHC mass conc (RBC) 32.1 g/dL Normal 30.5-36.0 [facility] Comment on above: Performed By: #### P T, PTT, AMYL, CMP, LIPA, PHOS ####[place] [address]#### TRANSF ####[place] [address] MCV 77.6 fL Low 80.0-100.0 [facility] Comment on above: Performed By: #### P T, PTT, AMYL, CMP, LIPA, PHOS ####[place] [address]#### TRANSF ####[place] [address] Monocytes/100 leukocytes 7.2 % Normal [facility] Comment on above: Performed By: #### P T, PTT, AMYL, CMP, LIPA, PHOS ####[place] [address]#### TRANSF ####[place] [address] Neutrophils/100 WBC Auto (Bld) 66.4 % Normal [facility] Comment on above: Performed By: #### P T, PTT, AMYL, CMP, LIPA, PHOS ####[place] [address]#### TRANSF ####[place] [phone] Platelet mean volume (PMV) 9.7 fL Normal 9.0-12.7 [facility] Comment on above: Performed By: #### P T, PTT, AMYL, CMP, LIPA, PHOS ####[place] [address]#### TRANSF ####[place] [phone] Platelets 230 10*3/uL Normal 150-400 [facility] Comment on above: Performed By: #### P T, PTT, AMYL, CMP, LIPA, PHOS ####[place] [address]#### TRANSF ####[place] [phone] WBC (Leukocytes) 8.38 10*3/uL Normal 3.70-11.00 [facility] Comment on above: Performed By: #### P T, PTT, AMYL, CMP, LIPA, PHOS ####[place] [address]#### TRANSF ####[place] [address] CONSULT PROGon 10-01-2017 CONSULT PROG HNO ID: [id number] thor: Matilda Malloy: Pain ManagementAuthor Type: AnesthesiologistType: [...] catheter placed: Day of surgeryMEDICATIONS:Epidural Medications and DRY PRIMER POWDER BLENDER SettingsBupivacaine 0.1% + DilaudidBasal rate: 6 mL/hr.Patient Demand Bolus: 3 mL.Lockout interval: 4 minutes.Additional medication(s) given: See belowAnticoagulation therapy: Lovenox 40 mgLast Dose given: due at [address] [place] [address] medications:magnesium sulfate in sterile water 4 g [...] (MOTRIN) 800 mg ORAL q 8 HHYDROmorphone DRY PRIMER POWDER BLENDER 0.5 mg/mL in NaCl 0.9% 100 mL INTRAVENOUS CONTINUOUSHYDROmorphone 0.5 mg/mL DRY PRIMER POWDER BLENDER CLINICIAN DOSE 0.2-0.4 mg 0.2-0.4 mgINTRAVENOUS (PACU) PRNHYDROmorphone 0.5 mg/mL DRY PRIMER POWDER BLENDER CLINICIAN DOSE 0.2 mg 0.2 mg INTRAVENOUS q 6 HPRNinsulin lispro injection (rapid acting) (HumaLOG) SUBCUTANEOUS q 6 Hheparin 5,000 Units injection 5,000 Units SUBCUTANEOUS q 12 Henoxaparin 40 mg injection (LOVENOX) 40 mg SUBCUTANEOUS DAILYmetoclopramide HCl 10 mg injection (REGLAN) 10 mg INTRAVENOUS q 6 H PRNPHYSICAL EXAM:Patient Vitals for the past 8 hrs: Temp Temp src Pulse Resp SpO2 Height Ethcep17/05/18 0700 - - 87 17 97 % [...] 10/01/2017SIGNATURE: Matilda Raya MD PATIENT NAME: Rocio VizcarraTE: October 01, 2017 : 8:47 AM PAGER/CONTACT #: [facility] [phone] Normal [facility] Comp Metabolic Panelon 10-01 Alanine aminotransferase (ALT) 35 U/L Normal 5-50 [facility] Comment on above: Performed By: #### P T, PTT, AMYL, CMP, LIPA, PHOS ####[place] [address]#### TRANSF ####[place] [address] Albumin 2.6 g/dL Low 3.5-5.0 [facility] Comment on above: Result Comment: Revi ewed Performed By: #### P T, PTT, AMYL, CMP, LIPA, PHOS ####[place] [address]#### TRANSF ####[place] [address] Alkaline phosphatase (ALP) 70 U/L Normal 40-150 [facility] Comment on above: Performed By: #### P T, PTT, AMYL, CMP, LIPA, PHOS ####[place] [address]#### TRANSF ####[place] [address] Anion gap 12 mmol/L Normal 9-18 [facility] Comment on above: Performed By: #### P T, PTT, AMYL, CMP, LIPA, PHOS ####[place] [address]#### TRANSF ####[place] [address] Aspartate aminotransferase (AST) 32 U/L Normal 7-40 [facility] Comment on above: Performed By: #### P T, PTT, AMYL, CMP, LIPA, PHOS ####[place] [address]#### TRANSF ####[place] [address] Bilirubin (total) 0.3 mg/dL Normal 0.0-1.5 [facility] Comment on above: Performed By: #### P T, PTT, AMYL, CMP, LIPA, PHOS ####[place] [address]#### TRANSF ####[place] [address] Calcium 7.7 mg/dL Low 8.5-10.5 [facility] Comment on above: Performed By: #### P T, PTT, AMYL, CMP, LIPA, PHOS ####[place] [address]#### TRANSF ####[place] [address] Chloride 105 mmol/L Normal 98-110 [facility] Comment on above: Performed By: #### P T, PTT, AMYL, CMP, LIPA, PHOS ####[place] [address]#### TRANSF ####[place] [address] CO2 23 mmol/L Normal 23-32 [facility] Comment on above: Performed By: #### P T, PTT, AMYL, CMP, LIPA, PHOS ####[place] [address]#### TRANSF ####[place] [address] Creatinine 0.78 mg/dL Normal 0.70-1.40 [facility] Comment on above: Performed By: #### P T, PTT, AMYL, CMP, LIPA, PHOS ####[place] [address]#### TRANSF ####[place] [address] eGFR (non-black) mL/min/{1.73_m2} Normal >60 [facility] Comment on above: Performed By: #### P T, PTT, AMYL, CMP, LIPA, PHOS ####[place] [address]#### TRANSF ####[place] [phone] Glucose mass conc 145 mg/dL High 65-100 [facility] Comment on above: Performed By: #### P T, PTT, AMYL, CMP, LIPA, PHOS ####[place] [address]#### TRANSF ####[place] [address] Potassium molar conc 4.8 mmol/L Normal 3.5-5.0 [facility] Comment on above: Performed By: #### P T, PTT, AMYL, CMP, LIPA, PHOS ####[place] [address]#### TRANSF ####[place] [address] Protein 5.1 g/dL Low 6.0-8.4 [facility] Comment on above: Performed By: #### P T, PTT, AMYL, CMP, LIPA, PHOS ####[place] [address]#### TRANSF ####[place] [address] Sodium 140 mmol/L Normal 135-146 [facility] Comment on above: Performed By: #### P T, PTT, AMYL, CMP, LIPA, PHOS ####[place] [address]#### TRANSF ####[place] [address] Urea nitrogen 20 mg/dL Normal - [facility] Comment on above: Performed By: #### P T, PTT, AMYL, CMP, LIPA, PHOS ####[facility] [place], [place] [phone]#### TRANSF ####[facility] [address] [place], [place] [phone] HISTORY PHYSICALon HISTORY PHYSICAL HNO ID: [id number] thor: Maria De Jesus (Jose C) KrystinarykService: Critical CareAuthor Type: ResidentType: HANDPFiled: 10/01/2017 6:13 [...] Date- ANGIOPLASTY HX 05/15/2011 2 stents s/p [place];[facility]- CHOLECYSTECTOMY 08/11/2017 [facility]- PICC LINE INSERT/CONSULT 08/16/2017No family history [...] 110/88 CVP: 2 Resp: 18 SpO2: 100 %[place] Readings: Not applicableRESPIRATORYMechani rachid Ventilation: No. Supplemental Oxygen: Yes. 2 L NCRecent Labs 09/30/382420DCEI 2.3*PHYSICAL EXAMNeuro: AwakePulmonary: Clear to auscultation. Breath [...] (TORADOL) 15 mg INTRAVENOUS q 6 HHYDROmorphone DRY PRIMER POWDER BLENDER 0.5 mg/mL in NaCl 0.9% 100 mL INTRAVENOUS CONTINUOUSHYDROmorphone 0.5 mg/mL DRY PRIMER POWDER BLENDER CLINICIAN DOSE 0.2-0.4 mg 0.2-0.4 mgINTRAVENOUS (PACU) PRNHYDROmorphone 0.5 mg/mL DRY PRIMER POWDER BLENDER CLINICIAN DOSE 0.2 mg 0.2 mg INTRAVENOUS [...] for today's visit:Most recent labs and imaging results.Assessment/PlanDean Ventura is a 62 year old M, hx of DM, HTN, CAD, s/p PCI with stentplacement, PSH of cholecystectomy, who underwent on 10/01/2015 Whippleprocedure for duodenal mass with distal duodenal distortion.REASON FOR ICU ADMISSION: Close HD monitoringPROCEDURE: Whipple procedureSeen and discussed on rounds with SICU staff: Dr. Junior: epidural in place, Hydromorphone DRY PRIMER POWDER BLENDER, ToradolCV: Intermittent hypotension, no vasopressor requiredPulm: CTA [...] 01, 2017 : 5:54 AM PAGER/CONTACT #: [phone] Normal [facility] Magnesiumon 10-01-2017 Magnesium 2.1 mg/dL Normal 1.7-2.6 [facility] Comment on above: Performed By: #### P T, PTT, AMYL, CMP, LIPA, PHOS ####[facility] [place], [place] [phone]#### TRANSF ####[facility] [place], [place] [phone] Magnesium 1.3 mg/dL Low 1.7-2.6 [facility] Comment on above: Performed By: #### P T, PTT, AMYL, CMP, LIPA, PHOS ####[facility] [place], [place] [phone]#### TRANSF ####[facility] [address] [place], [place] [phone] NURSING PROGon 10-01-2017 NURSING PROG HNO ID: [id number] thor: Cee (Rn) MOUSTAPHA Dialervice: (none)Author Type: Registered NurseType: Nursing Progress NoteFiled: 10/01/2017 7:58 PMNote Text: Nursing Progress NotePatient Name: Rocio JacksonN: [id number] Location: /IN-TVU-38 ___Daily Note:1900: Bedside report received from previous shift RN.This note was completed by: Cee Dial RN [facility] NURSING PROG HNO ID: [id number] thor: Marysol (Rn) MOUSTAPHA Agervice: Critical CareAuthor Type: Registered NurseType: Nursing Progress NoteFiled: 10/01/2017 1:35 PMNote Text: Nursing Progress NotePatient Name: Rocio JacksonN: [id number] Location: /KJ-EAB-43 ___Daily Note:07-bedside report received from Reed BATEMAN.07- surgical team at bedside to assess patient. 1 L LR bolus ordered forhypotension.1125- Dr. Raya text paged SICU 7 D.F.-- Patient's SBP continues to remainlow after 2 fluid boluses, Dr. Boothe asked that I page pain management tosee if it would be appropriate to decrease the basal rate on his epidural.Thank you, Laura BATEMAN [id number] . Dr. Raya returned page, will place order todecrease basal rate of epidural to 4cc/hr.1330- Dr. Kevin sharpe paged SICU 7 D.F.-- patient's urine output has oobf06yu/hr x2 hours. Blood pressure has improved, we decreased the basal rateof his epidural. Also, he would like throat spray, his throat is sore.Thank you, Laura RN [phone] This note was completed by: Marysol Ag RN [facility] NURSING PROG HNO ID: [id number] thor: Radha Ndiaye NsService: (none)Author Type: (none)Type: Nursing Progress NoteFiled: 10/01/2017 6:01 AMNote Text: Nursing Progress NotePatient Name: Rocio HayesN: [id number] Location: [place] [address]/DW-JTG-64 ___Daily Note:1909- Report complete. VSS on 6L [...] changes, see flowsheet.Labs and amylase drawn and bdwu6022- MD notified of low magnesium level, waiting for mag replacement tocome up from mmhlrozy2964- Report given to day shift nurseThis note was completed by: Reed Rincon RN [facility] NUTRITIONon 10-01-2017 NUTRITION HNO ID: [id number] thor: Bailey Segura) Miko: Nutrition TherapyAuthor Type: Registered DietitianType: NutritionFiled: 10/01/2017 [...] mass 09/30, who was admitted to the [facility] further care.Present Diet Order: NPO and Tube [...] 81 kgResting Metabolic Rate: 1599Estimated kilocalorie needs: 0462-4244 kilocalories determined by 20-25kcal/kgEstimated protein needs: 105-138 grams determined by 1.3-1.7 g/kg DosingweightEstimated fluid needs: 0328-3132 milliliters based on 1 mL per kcalNUTRITION [...] lb 12.7 oz) SpO2 95% BMI 27.19 kg/g9Vgtlvq Labs GLUC 145*BUN 20CREAT 0.78NA 140K 4.8CHLOR [...] (TORADOL) 15 mg INTRAVENOUS q 6 HHYDROmorphone DRY PRIMER POWDER BLENDER 0.5 mg/mL in NaCl 0.9% 100 mL INTRAVENOUS CONTINUOUSHYDROmorphone 0.5 mg/mL DRY PRIMER POWDER BLENDER CLINICIAN DOSE 0.2-0.4 mg 0.2-0.4 mgINTRAVENOUS (PACU) PRNHYDROmorphone 0.5 mg/mL DRY PRIMER POWDER BLENDER CLINICIAN DOSE 0.2 mg 0.2 mg INTRAVENOUS [...] October 01, 2017 : 1:49 PM PAGER: [phone] further assistance and weekends please page the Group [phone] [facility] PROGRESSon 10-01-2017 PROGRESS HNO ID: [id number] thor: Rick Stinson: Critical CareAuthor Type: PhysicianType: Progress NotesFiled: 10/01/2017 1:55 PMNote Text:Critical Care Progress NoteService Date: October 01, 2017Assessment and Plan:Rocoi Jackson is a 62 year old male with history of DM, HTN, CAD, s/p PCIwith stent placement, cholecystectomy c/b leak 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 POD #1Indication for ICU admission: hemodynamic monitoring in the setting of theabove surgeryNeuro:- Analgesia: Tylenol, toradol/Motrin, bupivacaine, dilaudid DRY PRIMER POWDER BLENDER onceepidural removed- Anxiety/Sedation: NoneCardiovascular:- ASA 162- statin- [...] discussed with ICU Staff Dr. Boothe.Kolby Brown MDGenecleveland clinic hillcrest hospital Surgery[C]: [phone] [P]: 73103Lxuv: 10/01/2017Time: 9:59 AMSubjective:Interval Events: NAEON. Pain controlled. Thirsty. Slept ok.Physical Exam:BP 110/88 Pulse 87 Temp 37.4 ?C (99.3 ?F) (Oral) Resp 17 Ht 172.7cm (5' 7.99 ) Wt 81.1 kg (178 lb 12.7 oz) SpO2 97% BMI 27.19 kg/m2BAIBBSQ: Well appearing 62 year old male in no distressNEURO: AAox3, UWD48QPWGK: Corpak/NGT in placeCHEST: nonlabored breathing on RA. NL rate and rhythmABDOMEN: Soft, non-distended, mildly tenderEXTREMITIES: Warm well perfused, no deformitiesLabs:CBC, BMP, MG, PHOSRecent Labs 326 261897 8015320209/02/18035308/31/1803WBC 8.38 8.24 7.14 7.49 4.87 4.43 4.93HB [...] 2.0* 1.5*Intake and Output:Date 09/30/17699 - 10/01/17 0610/01/17699 - 10/02/17 0659Shift 8887-1688 8699-5457 1597-4565 24 Hour Total 1034-8490 6622-56271340-0510 24 Hour TotalINTAKE IV 3240.1 1966 5207.1 IVPB 28.1 28.1 LR 3211966 5179 Blood Products 1053 1053 PRBC Intake [...] BMs 0 x 0 x Shift Total 545 193 8084 40 40Weight (kg) 81.1 81.1 81.1 81.1 [...] (MOTRIN) 800 mg ORAL q 8 HHYDROmorphone DRY PRIMER POWDER BLENDER 0.5 mg/mL in NaCl 0.9% 100 mL INTRAVENOUS CONTINUOUSHYDROmorphone 0.5 mg/mL DRY PRIMER POWDER BLENDER CLINICIAN DOSE 0.2-0.4 mg 0.2-0.4 mgINTRAVENOUS (PACU) PRNHYDROmorphone 0.5 mg/mL DRY PRIMER POWDER BLENDER CLINICIAN DOSE 0.2 mg 0.2 mg INTRAVENOUS [...] 5 mg tab Take by mouth once daily.[facility] STAFF PHYSICIAN SUPERVISING RESIDENTI have [...] SERVICE: 10/01/2017TIME of SERVICE: 1:30 PM Normal [facility] PROGRESS HNO ID: [id number] thor: Michael Cedillo) AugustinService: General SurgeryAuthor Type: [...] pressures are betterContinue EpiduralCaleb MD JaneGeneral Surgery, [id number] Pager: [phone], General Surgery Pager [phone]/11/13 9:19 AMPlease page [phone] on weekends and between 6 PM and 6 AM.SubjectiveINTERVAL HPI :Acute events overnight: none. Pain: w/c. Nausea: No. Vomiting: No. Flatus:No. Bowel movement: No. No other complaints.ObjectivePHYSICAL EXAM:General Appearance: in bed in NADLungs: nonlabored breathingAbdomen: soft, appropriately-tender, non-distendedIncisions:small amount of blood on dressingDrains:serosang x2Labs:CBC, BMP, MG, PHOSRecent Labs 100 8009/24/1808WBC 8.38 8.24 7.14 7.49 4.87 4.43 4.93HB [...] (MOTRIN) 800 mg ORAL q 8 HHYDROmorphone DRY PRIMER POWDER BLENDER 0.5 mg/mL in NaCl 0.9% 100 mL INTRAVENOUS CONTINUOUSHYDROmorphone 0.5 mg/mL DRY PRIMER POWDER BLENDER CLINICIAN DOSE 0.2-0.4 mg 0.2-0.4 mgINTRAVENOUS (PACU) PRNHYDROmorphone 0.5 mg/mL DRY PRIMER POWDER BLENDER CLINICIAN DOSE 0.2 mg 0.2 mg INTRAVENOUS q 6 HPRNinsulin lispro injection (rapid acting) (HumaLOG) SUBCUTANEOUS q 6 Hheparin 5,000 Units injection 5,000 Units SUBCUTANEOUS q 12 Henoxaparin 40 mg injection (LOVENOX) 40 mg SUBCUTANEOUS DAILYmetoclopramide HCl 10 mg injection (REGLAN) 10 mg INTRAVENOUS q 6 H PRN Normal [facility] Phosphoruson 10-01-2017 Phosphate 3.0 mg/dL Normal 2.5-4.5 [facility] Comment on above: Performed By: #### P T, PTT, AMYL, CMP, LIPA, PHOS ####[place] [id number] [phone]#### TRANSF ####[place] [address] [place], [place] [phone] Phosphate 4.4 mg/dL Normal 2.5-4.5 [facility] Comment on above: Performed By: #### P T, PTT, AMYL, CMP, LIPA, PHOS ####[place] [address]201 [place] [phone]#### TRANSF ####[place] [address] [place], [place] [phone] THERAPY NTon 10-01-2017 THERAPY NT HNO ID: [id number] thor: Son Salgado (Pt) [place] RockawayService: Physical TherapyAuthor Type: Physical TherapistType: Therapy (PT/OT/Speech/Resp)Filed: 10/01/2017 6:13 PMNote Text:Physical Therapy EvaluationSERVICE DATE: 10/01/2017SERVICE TIME: 1010 to 1045ROOM: [id number]-OOA-05Iaceigcchnl Discharge Disposition: Acute RehabJustification For Post Acute Needs: Anticipate patient will tolerate 3hours of daily therapy at the time of admission to post-acuteprovidence hospital;Cognition intact;Medically complex;Willing to participate;Livingthe community premorbidly;Good [...] Reduced mobility-other;Muscle Weakness (generalized)Interventions Provided: Evaluation;Therapeutic Activity (98831)$ Evaluation-Moderate (03997) Billed Units: 1 unitTherapeutic Activity (98580) Treatment Minutes: 101 unitSkilled Intervention(s): Instructed patient [...] mobility assessmentRelevant Past Medical History: HTN, DM, [place], richelle 08/11/17, ARF, refer tochart for full [...] Assistance;Other: See Comment (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, 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)Assistance Required With: Cleaning;Laundry;Meals;Other : See Comment(Shares [...] RE: Son Ellington, PT PATIENT NAME: Rocio VizcarraTE: October 01, 2017 : 6:08 PM PAGER/CONTACT #: [phone] [facility] ANES Ila 09-30-2017 ANES POST HNO ID: [id number] thor: Bogdan Montenegro, IService: AnesthesiologyAuthor Type: AnesthesiologistType: [...] 30, 2017 : 5:52 PM PAGER/CONTACT #: [phone] [facility] ANES PREOPon 09-30-2017 ANES PREOP HNO ID: [id number] thor: Brian BarriossService: AnesthesiologyAuthor Type: AnesthesiologistType: Anesthesia PreOpFiled: 09/30/2017 8:34 AMNote Text:REGIONAL ANESTHESIOLOGY DAY OF SURGERY NOTEPATIENT NAME: Rocio JacksonMRN: [id number]: 1955Procedure(s) (LRB):LAPAROSCOPY DIAGNOSTIC (N/A)WHIPPLE PROCEDURE, WITH PANCREATOJEJUNOST [...] with exertion.Denies change in functional capacity.Denies GERD.HTNNIDMHx [place] s/p stent 2010; no issues sinceBaseline anemiaChronic [...] Date- ANGIOPLASTY HX 05/15/2011 2 stents s/p [place];[facility]- CHOLECYSTECTOMY 08/11/2017 [facility]- PICC LINE INSERT/CONSULT 08/16/2017No family history [...] by mouth once daily.Inpatient medications reviewed in [facility].I have interviewed and examined the patient. I have reviewed the medicalrecord and/or the pre-anesthesia evaluation, pertinent labs, and testresults.Significant changes in the patient's condition since the History andPhysical, not otherwise documented in primary service progress notes: [facility] contains updated information obtained within 48 hours ofSurgery/Procedure.SIGNATUR E: Brian Orona MD PATIENT NAME: Rocio JacksonDATE: September 30, 2017 : 8:29 AM PAGER/CONTACT #: [phone] (pager) Normal [facility] APTTon 09-30-2017 aPTT 25.9 s Normal 23.0-32.4 [facility] Comment on above: Result Comment: Unfr actionated [...] laboratory APTT reagent in use throughout the [facility]. Performed By: #### P T, PTT, AMYL, CMP, LIPA, PHOS ####[facility] [place], [place] [phone]#### TRANSF ####[facility] [place], [place] [phone] BRIEF OP NOTon 09-30-2017 BRIEF OP NOT HNO ID: [id number] thor: Mundo Merchant)(Hist) SiderisService: General SurgeryAuthor Type: ResidentType: Brief Op NoteFiled: 09/30/2017 5:02 PMNote Text:BRIEF OP NOTELOG ID: [id number]/Procedure Date: 09/30/2017Incision/Procedure Start Time: 9:40 AMIncision Close/Procedure End Time: 4:46 PMSurgeon(s)/Proceduralist(s ) and Theology Professor(s):Surgeon(s) and Role: * Michael Cedillo) Jolley - Primary * Mundo Merchant)(Hist) Kay - Resident - AssistingProcedure(s): diagnostic laparoscopy, [...] 2017 : 4:58 PM PAGER/CONTACT #: Normal [facility] CBCon 09-30-2017 Erythrocyte distribution width Auto Ratio (RBC) 16.2 % High 11.5-15.0 [facility] Comment on above: Performed By: #### P T, PTT, AMYL, CMP, LIPA, PHOS ####[place] [address]#### TRANSF ####[place] [address]174[address] Erythrocytes (RBC) 3.96 10*6/uL Low 4.20-6.00 [facility] Comment on above: Performed By: #### P T, PTT, AMYL, CMP, LIPA, PHOS ####[place] [address]#### TRANSF ####[place] [address]174[address] Hematocrit (HCT) 30.7 % Low 39.0-51.0 [facility] Comment on above: Performed By: #### P T, PTT, AMYL, CMP, LIPA, PHOS ####[place] [address]#### TRANSF ####[place] [address]174[address] Hemoglobin mass conc (Bld) 10.1 g/dL Low 13.0-17.0 [facility] Comment on above: Performed By: #### P T, PTT, AMYL, CMP, LIPA, PHOS ####[place] [address]#### TRANSF ####[place] 8[address] MCH 25.5 pG Low 26.0-34.0 [facility] Comment on above: Performed By: #### P T, PTT, AMYL, CMP, LIPA, PHOS ####[place] 552456-7110#### TRANSF ####[place] [address] MCHC mass conc (RBC) 32.9 g/dL Normal 30.5-36.0 [facility] Comment on above: Performed By: #### P T, PTT, AMYL, CMP, LIPA, PHOS ####[address]#### TRANSF ####[place] [address] MCV 77.5 fL Low 80.0-100.0 [facility] Comment on above: Performed By: #### P T, PTT, AMYL, CMP, LIPA, PHOS ####[place] [address]#### TRANSF ####[place] [address]174[address] Platelet mean volume (PMV) 9.4 fL Normal 9.0-12.7 [facility] Comment on above: Performed By: #### P T, PTT, AMYL, CMP, LIPA, PHOS ####[address]#### TRANSF ####[place] [address]174[address] Platelets 242 10*3/uL Normal 150-400 [facility] Comment on above: Performed By: #### P T, PTT, AMYL, CMP, LIPA, PHOS ####[place] [phone]#### TRANSF ####[place] [phone] WBC (Leukocytes) 7.14 10*3/uL Normal 3.70-11.00 [facility] Comment on above: Performed By: #### P T, PTT, AMYL, CMP, LIPA, PHOS ####[place] [address]#### TRANSF ####[place] [phone] CBC and Differentialon 09-30 Abs Baso <0.03 Normal <0.11 [facility] Comment on above: Performed By: #### P T, PTT, AMYL, CMP, LIPA, PHOS ####[place] [address]#### TRANSF ####[place] [phone] Abs Lamar 0.48 k/uL Normal <0.87 [facility] Comment on above: Performed By: #### P T, PTT, AMYL, CMP, LIPA, PHOS ####[place] [address]#### TRANSF ####[phone] Abs Neut 6.37 k/uL Normal 1.45-7.50 [facility] Comment on above: Performed By: #### P T, PTT, AMYL, CMP, LIPA, PHOS ####[place] [address]#### TRANSF ####[place] [phone] Basophils/100 WBC Auto (Bld) 0.0 % Normal [facility] Comment on above: Performed By: #### P T, PTT, AMYL, CMP, LIPA, PHOS ####[place] [address]#### TRANSF ####[address] Av[place] [phone] DTYPE Auto Diff Normal [facility] Comment on above: Performed By: #### P T, PTT, AMYL, CMP, LIPA, PHOS ####[place] [address]#### TRANSF ####[place] [address]174[address] Eosinophils 10*3/uL Normal <0.46 [facility] Comment on above: Performed By: #### P T, PTT, AMYL, CMP, LIPA, PHOS ####[place] [address]#### TRANSF ####[place] [address]174[address] Eosinophils/100 leukocytes 0.0 % Normal [facility] Comment on above: Performed By: #### P T, PTT, AMYL, CMP, LIPA, PHOS ####[place] [address]#### TRANSF ####[place] [address]174[address] Erythrocyte distribution width Auto Ratio (RBC) 15.9 % High 11.5-15.0 [facility] Comment on above: Performed By: #### P T, PTT, AMYL, CMP, LIPA, PHOS ####[place] [address]#### TRANSF ####[place] [address]174[address] Erythrocytes (RBC) 3.70 10*6/uL Low 4.20-6.00 [facility] Comment on above: Performed By: #### P T, PTT, AMYL, CMP, LIPA, PHOS ####[place] [address]#### TRANSF ####[place] [address] Hematocrit (HCT) 28.9 % Low 39.0-51.0 [facility] Comment on above: Performed By: #### P T, PTT, AMYL, CMP, LIPA, PHOS ####[place] [address]#### TRANSF ####[place] [address] Hemoglobin mass conc (Bld) 9.4 g/dL Low 13.0-17.0 [facility] Comment on above: Performed By: #### P T, PTT, AMYL, CMP, LIPA, PHOS ####[place] [address]#### TRANSF ####[place] [address] Lymphocytes 1.39 10*3/uL Normal 1.00-4.00 [facility] Comment on above: Performed By: #### P T, PTT, AMYL, CMP, LIPA, PHOS ####[place] [address]#### TRANSF ####[place] [address] Lymphocytes/100 leukocytes 16.9 % Normal [facility] Comment on above: Performed By: #### P T, PTT, AMYL, CMP, LIPA, PHOS ####[place] [address]#### TRANSF ####[place] [phone] MCH 25.4 pG Low 26.0-34.0 [facility] Comment on above: Performed By: #### P T, PTT, AMYL, CMP, LIPA, PHOS ####[place] [address]#### TRANSF ####[phone] MCHC mass conc (RBC) 32.5 g/dL Normal 30.5-36.0 [facility] Comment on above: Performed By: #### P T, PTT, AMYL, CMP, LIPA, PHOS ####[place] [address]#### TRANSF ####[place] [address] MCV 78.1 fL Low 80.0-100.0 [facility] Comment on above: Performed By: #### P T, PTT, AMYL, CMP, LIPA, PHOS ####[place] [address]#### TRANSF ####[place] [address] Monocytes/100 leukocytes 5.8 % Normal [facility] Comment on above: Performed By: #### P T, PTT, AMYL, CMP, LIPA, PHOS ####[place] [address]#### TRANSF ####[place] [address] Neutrophils/100 WBC Auto (Bld) 77.3 % Normal [facility] Comment on above: Performed By: #### P T, PTT, AMYL, CMP, LIPA, PHOS ####[place] [address]#### TRANSF ####[place] [address] Platelet mean volume (PMV) 9.7 fL Normal 9.0-12.7 [facility] Comment on above: Performed By: #### P T, PTT, AMYL, CMP, LIPA, PHOS ####[address]#### TRANSF ####[place] [phone] Platelets 231 10*3/uL Normal 150-400 [facility] Comment on above: Performed By: #### P T, PTT, AMYL, CMP, LIPA, PHOS ####[place] [address]2456[address]71[address]#### TRANSF ####[phone] WBC (Leukocytes) 8.24 10*3/uL Normal 3.70-11.00 [facility] Comment on above: Performed By: #### P T, PTT, AMYL, CMP, LIPA, PHOS ####[place] [address]#### TRANSF ####[place] [phone] Comp Metabolic Panelon 09-30 Alanine aminotransferase (ALT) 46 U/L Normal 5-50 [facility] Comment on above: Performed By: #### P T, PTT, AMYL, CMP, LIPA, PHOS ####[place] [address]2456[address]#### TRANSF ####[place] [phone] Albumin 3.1 g/dL Low 3.5-5.0 [facility] Comment on above: Performed By: #### P T, PTT, AMYL, CMP, LIPA, PHOS ####[place] 552456[address]#### TRANSF ####[place] [phone] Alkaline phosphatase (ALP) 91 U/L Normal 40-150 [facility] Comment on above: Performed By: #### P T, PTT, AMYL, CMP, LIPA, PHOS ####[place] [address]#### TRANSF ####[place] [address] Anion gap 11 mmol/L Normal 9-18 [facility] Comment on above: Performed By: #### P T, PTT, AMYL, CMP, LIPA, PHOS ####[place] [address]#### TRANSF ####[place] [address] Aspartate aminotransferase (AST) 48 U/L High 7-40 [facility] Comment on above: Performed By: #### P T, PTT, AMYL, CMP, LIPA, PHOS ####[place] [address]#### TRANSF ####[place] [address] Bilirubin (total) 0.5 mg/dL Normal 0.0-1.5 [facility] Comment on above: Performed By: #### P T, PTT, AMYL, CMP, LIPA, PHOS ####[place] [address]#### TRANSF ####[place] [address] Calcium 7.8 mg/dL Low 8.5-10.5 [facility] Comment on above: Performed By: #### P T, PTT, AMYL, CMP, LIPA, PHOS ####[place] [address]#### TRANSF ####[place] [phone] Chloride 105 mmol/L Normal 98-110 [facility] Comment on above: Performed By: #### P T, PTT, AMYL, CMP, LIPA, PHOS ####[place] [address]#### TRANSF ####[place] [address] CO2 24 mmol/L Normal 23-32 [facility] Comment on above: Performed By: #### P T, PTT, AMYL, CMP, LIPA, PHOS ####[place] [address]#### TRANSF ####[place] [address] Creatinine 0.65 mg/dL Low 0.70-1.40 [facility] Comment on above: Performed By: #### P T, PTT, AMYL, CMP, LIPA, PHOS ####[place] [address]#### TRANSF ####[place] [address] eGFR (non-black) mL/min/{1.73_m2} Normal >60 [facility] Comment on above: Performed By: #### P T, PTT, AMYL, CMP, LIPA, PHOS ####[place] [address]#### TRANSF ####[place] [address] Glucose mass conc 157 mg/dL High 65-100 [facility] Comment on above: Performed By: #### P T, PTT, AMYL, CMP, LIPA, PHOS ####[place] [address]#### TRANSF ####[place] [phone] Potassium molar conc 4.9 mmol/L Normal 3.5-5.0 [facility] Comment on above: Performed By: #### P T, PTT, AMYL, CMP, LIPA, PHOS ####[place] [address]#### TRANSF ####[place] [address] Protein 5.8 g/dL Low 6.0-8.4 [facility] Comment on above: Performed By: #### P T, PTT, AMYL, CMP, LIPA, PHOS ####[place] [address]#### TRANSF ####[place] [address] Sodium 140 mmol/L Normal 135-146 [facility] Comment on above: Performed By: #### P T, PTT, AMYL, CMP, LIPA, PHOS ####[place] [address]#### TRANSF ####[place] [address] Urea nitrogen 18 mg/dL Normal 10-25 [facility] Comment on above: Performed By: #### P T, PTT, AMYL, CMP, LIPA, PHOS ####[place] [address]#### TRANSF ####[place] [address] Fibrinogenon 09-30-2017 Fibrinogen 257 mg/dL Normal 200-400 [facility] Comment on above: Performed By: #### P T, PTT, AMYL, CMP, LIPA, PHOS ####[place] [address]#### TRANSF ####[address] [phone] Lactateon 09-30-2017 Lactate 2.3 mmol/L High 0.4-2.0 [facility] Comment on above: Performed By: #### P T, PTT, AMYL, CMP, LIPA, PHOS ####[facility] [place], [place] [phone]#### TRANSF ####[facility] [address] [place], [place] [phone] NURSING PROGon 09-30-2017 NURSING PROG HNO ID: [id number] thor: Sandrita (Rn) Clayton Guerraice: (none)Author Type: Registered NurseType: Nursing Progress NoteFiled: 09/30/2017 4:15 PMNote Text: Nursing Progress NotePatient Name: Rocio HayesN: [id number] Location: /JU-MDJZ-01 ____Daily Note:1043- family updated via pager [phone]- family updated vis pager [id number]- family updated via pager [id number]- family updated via pager [id number]- family updated via pager [id number] Family update via pager [id number] family notified of closure start time. Requested family to return Rajat waiting roomThis note was completed by: Sandrita Guerra RN [facility] NURSING PROG HNO ID: [id number] thor: Kevin Us (Rn) Bhupinder Beltran: (none)Author Type: Registered NurseType: Nursing Progress NoteFiled: 09/30/2017 9:46 AMNote Text: Nursing Progress NotePatient Name: Rocio HayesN: [id number] Location: /[id number] ____ Patient's family updated at 9:44 AM about status of procedure per MD Ainsley.This note was completed by: Kevin Beltran, RN [facility] NURSING PROG HNO ID: [id number] thor: Mirian (Rn) Milvia Collins, RNService: NursingAuthor [...] 15 degree and side rails up X2. [facility] OPERATIVE NOon 09-30-2017 OPERATIVE NO HNO ID: [id number] thor: Michael Cedillo) Trenaervice: General SurgeryAuthor Type: PhysicianType: Operative ReportFiled: 10/05/2017 7:03 PMNote Text:[facility] - Operative ReportFRISCH, DEANDOB: 1955 AGE: 62 SEX: MMRN: [id number] ACCTNUM: [id number] SVC: INT LOCATION: [address] PHYSICIAN: Michael Jolley, MDDATE OF PROCEDURE: 09/30/2017PREOPERATIVE [...] pleasant 62-year-old male who was initiallyad[facility] with intraabdominal abscesses afterhaving undergone a cholecystectomy on hind site. 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 He at the time of that admission [...] the start time and the end time.[facility]olley [facility]ept Of SurgeryTA:[id number]:02/2018jhD: 10/02/2017 17:34:33T: 10/03/2017 03:14:36Job #: [id number] [facility] PROCEDUREon 09-30-2017 PROCEDURE HNO ID: [id number] thor: Yrn Cedillo) Danelle: Pain ManagementAuthor Type: AnesthesiologistType: ProceduresFiled: 09/30/2017 10:44 [...] N/ASIGNATURE: Yrn Sánchez MD PATIENT NAME: Rocio TorresdonnyDATE: September 30, 2017 : 10:40 AM PAGER/CONTACT #: [phone] [facility] PT EDon 09-30-2017 PT ED HNO ID: [id number] thor: Celina KenRnMOUSTAPHA Allenervice: NursingAuthor Type: Registered NurseType: Patient EducationFiled: 09/30/2017 8:51 AMNote Text:PATIENT EDUCATION TOPIC: PROCEDURE / SURGERY: Pre-op Teaching: SurgicalSafety PrinciplesPATIENT NAME: Rociomarisa JackosnMRN: [id number] LOCATION: [place] [id number] S TO LEARNCOGNITIVE ABILITY: Alert and orientedMOTIVATION TO LEARN: EagerFAMILY SUPPORT: High - Very involved in pt careINSTRUCTION PROVIDED TO: Patient and family memberPATIENT LEARNS BEST BY: Individual InstructionFACTORS AFFECTING LEARNING: NonePHYSICAL LIMITATIONS AFFECTING LEARNING: Other Limitations MEMORY LOSSLEARNING RESPONSEDIAGNOSIS: ADULT: WHIPPLEPATIENT/FAMILY RESPONSE: Verbalizes understanding of: WKB-WJTMFOHEZYBFGZIVXYXVA-Bd rrect action to take to follow pre-operative instructionsMETHOD OF INSTRUCTION: Individual instructionFOLLOW-UP PLAN: Complete - No need for follow-upINSTRUCTIONAL AIDS USED: NASUPPLEMENTAL MATERIAL PROVIDED TO PATIENT: NoneREFERRAL (RECOMMENDATION): NoneElectronically Signed By: Celina Wagner RN [facility] Protimeon 09-30-2017 INR Coag RelTime (Bld) 1.2 {INR} Normal 0.9-1.3 [facility] Comment on above: Result Comment: Tayler min K Antagonist (VKA) Therapeutic Range: INR 2 to 3 (Target INR of 2.5)Note: For patients treated with VKA drugs, such as warfarin, the [employer] 2012 Guideline recommends [...] P T, PTT, AMYL, CMP, LIPA, PHOS ####[facility] [place], [place] [phone]#### TRANSF ####[facility] [place], [place] [phone] PT Sec 12.2 sec Normal 9.7-13.0 [facility] Comment on above: Performed By: #### P T, PTT, AMYL, CMP, LIPA, PHOS ####[facility] [place], [place] [phone]#### TRANSF ####[facility] [address] [place], [place] [phone] SURGICAL PATHOLOGYon 018 SURGICAL PATHOLOGY [facility]: [id number] Physician: MICHAEL JOLLEY MD FINAL DIAGNOSIS1. Duodenal [...] for malignancy. (Dr. Parker)Intraoperative diagnosis performed at [facility], [address] [place] [address] GROSS DESCRIPTIONA. Received fresh for frozen section [...] cmin greatest dimension. A photograph is taken. Telephone Services Sales Representative sections aresubmitted as follows: D1 perpendicular proximal duodenal margin, R1bbnvnggupased distal duodenal margin, D3 pancreatic neck shave [...] minimally attached fibrofatty tissuewhich is grossly unremarkable. Telephone Services Sales Representative sections are submitted asfollows: E1 perpendicular margins, [...] 0.7 cm.Sectioning does not reveal any masses. Telephone Services Sales Representative sections aresubmitted as follows: G1 perpendicular proximal margin, G2 perpendiculardistal margin, G3 pylorus, G4 shave margin mucosal covered tissue withstaple line. BF/glw 10/01/2017 Gross examination performed at [facility], [address] [place] [address] of Report: 10/13/2017Date of Procedure: 09/30/2017Date of Receipt: 09/30/2017Submitted by: MICHAEL JOLLEY MDLocation: [id number] interpretation performed at [facility], [address] [place] [id number]. Normal [facility] Comment on above: Performed By: #### P T, PTT, AMYL, CMP, LIPA, PHOS ####[place] [address] [place], [place] [phone]#### TRANSF ####[facility] [address] [place] [phone] Wound Culture/Stainon 2017 Wound Culture/Stain Smear Result [...] <=2 FVancomycin SUSCEPTIBLE 1 F Critically abnormal [facility] Comment on above: Performed By: #### P T, PTT, AMYL, CMP, LIPA, PHOS ####[facility] [place], [place] [phone]#### TRANSF ####[facility] [address] [place], [place] [phone] NURSING PROGon 09-25-2017 NURSING PROG HNO ID: [id number] thor: Zaira (Rn) Amanuel, RNService: NeurosurgeryAuthor Type: Registered NurseType: Nursing Progress NoteFiled: 09/29/2017 4:23 PMNote Text:PACC Nurse Progress NoteHistory AND Physical:PACC Visit Date: 3-56-30Ohhiyfpy HANDP Date: N/AED visit Date: N/AOutside HANDP [...] expected for cardiac optimization by Gerald Freeman, RNMar 2017 8:38 AMADDEND:Cardiac Optimization: Dr. Abreu, letter scanned in [facility] 09-29-17.Chart Check:Zackary Beverly 2017 3:05 PM Normal [facility] ALLIED HEALTHon 09-24-2017 ALLIED HEALTH HNO ID: [id number] thor: Jennifer Win CtService: (none)Author Type: (none)Type: Allied HealthFiled: 09/24/2017 10:49 AMNote Text: Radiology Service Progress NotePATIENT NAME: Rociomarisa HayesN: [id number] OF SERVICE: September 24, 2017TIME: 10:48 AMPATIENT IDENTITY VERIFICATION COMPLETED USING TWO (2) METHODS: Patientconfirmed name verbally and ID band matches..PATIENT GENDER DATA: MalePATIENT RELEVANT IMPLANT DATA REVIEWED: Not ApplicableRADIOLOGY DEPARTMENT: CT; Exam(s) Completed: Pancreas and PelvisPERIPHERAL IV DATA: Site assessment: Clean,Dry and Intact, Sitedisposition DiscontinuedSIGNED BY: Jennifer Win CtT[facility] 2017 10:48 AM Normal [facility] APTTon 09-24-2017 aPTT 24.9 s Normal 23.0-32.4 [facility] Comment on above: Result Comment: Unfr actionated [...] laboratory APTT reagent in use throughout the [facility]. Performed By: #### P T, PTT, AMYL, CMP, LIPA, PHOS ####[place] [phone]#### TRANSF ####[place] [address] [place], [place] [phone] CA 19-9on 09-24-2017 CA 19-9 15 U/mL Normal <36 [facility] Comment on above: Result Comment: Test analyzed by the [employer] DxI method. Performed By: #### P T, PTT, AMYL, CMP, LIPA, PHOS ####[place] [phone]#### TRANSF ####[place] [address] [place], [place] [phone] CBC and Differentialon 09-24 Abs Baso <0.03 Normal <0.11 [facility] Comment on above: Performed By: #### P T, PTT, AMYL, CMP, LIPA, PHOS ####[place] [address]#### TRANSF ####[place] [phone] Abs Lamar 0.57 k/uL Normal <0.87 [facility] Comment on above: Performed By: #### P T, PTT, AMYL, CMP, LIPA, PHOS ####[place] [address]#### TRANSF ####[place] [phone] Abs Neut 3.92 k/uL Normal 1.45-7.50 [facility] Comment on above: Performed By: #### P T, PTT, AMYL, CMP, LIPA, PHOS ####[place] [address]#### TRANSF ####[place] [phone] Basophils/100 WBC Auto (Bld) 0.3 % Normal [facility] Comment on above: Performed By: #### P T, PTT, AMYL, CMP, LIPA, PHOS ####[place] [address]#### TRANSF ####[place] [phone] DTYPE Auto Diff Normal [facility] Comment on above: Performed By: #### P T, PTT, AMYL, CMP, LIPA, PHOS ####[place] [address]#### TRANSF ####[place] [phone] Eosinophils 0.34 10*3/uL Normal <0.46 [facility] Comment on above: Performed By: #### P T, PTT, AMYL, CMP, LIPA, PHOS ####[place] [address]#### TRANSF ####[place] [address] [address] [place] [phone] Eosinophils/100 leukocytes 4.5 % Normal [facility] Comment on above: Performed By: #### P T, PTT, AMYL, CMP, LIPA, PHOS ####[place] [address]#### TRANSF ####[address] [place] [phone] Erythrocyte distribution width Auto Ratio (RBC) 16.2 % High 11.5-15.0 [facility] Comment on above: Performed By: #### P T, PTT, AMYL, CMP, LIPA, PHOS ####[place] [address]#### TRANSF ####[place] [address] [address] [place] [phone] Erythrocytes (RBC) 10*6/uL Normal <0.01 [facility] Comment on above: Performed By: #### P T, PTT, AMYL, CMP, LIPA, PHOS ####[place] [address]#### TRANSF ####[place] [address] [address] [phone] Erythrocytes (RBC) 3.62 10*6/uL Low 4.20-6.00 [facility] Comment on above: Performed By: #### P T, PTT, AMYL, CMP, LIPA, PHOS ####[place] [address]#### TRANSF ####[place] [address] [address] AveCKenneth [place] [phone] Erythrocytes (RBC) 0.0 /100 WBC Normal 0 [facility] Comment on above: Performed By: #### P T, PTT, AMYL, CMP, LIPA, PHOS ####[place] [address]#### TRANSF ####[place] [phone] Hematocrit (HCT) 29.1 % Low 39.0-51.0 [facility] Comment on above: Performed By: #### P T, PTT, AMYL, CMP, LIPA, PHOS ####[place] [address]#### TRANSF ####[place] [phone] Hemoglobin mass conc (Bld) 8.6 g/dL Low 13.0-17.0 [facility] Comment on above: Performed By: #### P T, PTT, AMYL, CMP, LIPA, PHOS ####[place] [address]#### TRANSF ####[place] [phone] Lymphocytes 2.62 10*3/uL Normal 1.00-4.00 [facility] Comment on above: Performed By: #### P T, PTT, AMYL, CMP, LIPA, PHOS ####[place] [address]#### TRANSF ####[place] [phone] Lymphocytes/100 leukocytes 35.0 % Normal [facility] Comment on above: Performed By: #### P T, PTT, AMYL, CMP, LIPA, PHOS ####[place] [address]#### TRANSF ####[place] [phone] MCH 23.8 pG Low 26.0-34.0 [facility] Comment on above: Performed By: #### P T, PTT, AMYL, CMP, LIPA, PHOS ####[place] [address]#### TRANSF ####[place] [phone] MCHC mass conc (RBC) 29.6 g/dL Low 30.5-36.0 [facility] Comment on above: Performed By: #### P T, PTT, AMYL, CMP, LIPA, PHOS ####[place] [address]#### TRANSF ####[place] [phone] MCV 80.4 fL Normal 80.0-100.0 [facility] Comment on above: Performed By: #### P T, PTT, AMYL, CMP, LIPA, PHOS ####[place] [address]#### TRANSF ####[place] [phone] Monocytes/100 leukocytes 7.6 % Normal [facility] Comment on above: Performed By: #### P T, PTT, AMYL, CMP, LIPA, PHOS ####[place] [address]#### TRANSF ####[place] [phone] Neutrophils/100 WBC Auto (Bld) 52.6 % Normal [facility] Comment on above: Performed By: #### P T, PTT, AMYL, CMP, LIPA, PHOS ####[place] [address]#### TRANSF ####[place] [phone] Platelet mean volume (PMV) 10.9 fL Normal 9.0-12.7 [facility] Comment on above: Performed By: #### P T, PTT, AMYL, CMP, LIPA, PHOS ####[address]#### TRANSF ####[place] [phone] Platelets 354 10*3/uL Normal 150-400 [facility] Comment on above: Performed By: #### P T, PTT, AMYL, CMP, LIPA, PHOS ####[place] [address]#### TRANSF ####[place] [phone] WBC (Leukocytes) 7.49 10*3/uL Normal 3.70-11.00 [facility] Comment on above: Performed By: #### P T, PTT, AMYL, CMP, LIPA, PHOS ####[address]#### TRANSF ####[place] [phone] CEAon 09-24-2017 CEA 0.7 ng/mL Normal 0.0-2.9 [facility] Comment on above: Result Comment: Test analyzed by the [employer] DxI method. Performed By: #### P T, PTT, AMYL, CMP, LIPA, PHOS ####[address]#### TRANSF ####[place] [phone] CT PANCREAS/PELVIS W IVCONon 09-24-2017 CT PANCREAS/PELVIS [...] JUAREZ MD on Sep 25 2017 9:02AM [id number] Normal [facility] Comp Metabolic Panelon 09-24 Alanine aminotransferase (ALT) 38 U/L Normal 5-50 [facility] Comment on above: Performed By: #### P T, PTT, AMYL, CMP, LIPA, PHOS ####[place] [address]#### TRANSF ####[place] [address] Albumin 3.7 g/dL Normal 3.5-5.0 [facility] Comment on above: Performed By: #### P T, PTT, AMYL, CMP, LIPA, PHOS ####[place] [address]#### TRANSF ####[place] [address] Alkaline phosphatase (ALP) 160 U/L High 40-150 [facility] Comment on above: Performed By: #### P T, PTT, AMYL, CMP, LIPA, PHOS ####[place] [address]#### TRANSF ####[place] [address] Anion gap 12 mmol/L Normal 9-18 [facility] Comment on above: Performed By: #### P T, PTT, AMYL, CMP, LIPA, PHOS ####[place] [address]#### TRANSF ####[place] [address] Aspartate aminotransferase (AST) 37 U/L Normal 7-40 [facility] Comment on above: Performed By: #### P T, PTT, AMYL, CMP, LIPA, PHOS ####[place] [address]#### TRANSF ####[place] [phone] Bilirubin (total) 0.3 mg/dL Normal 0.0-1.5 [facility] Comment on above: Performed By: #### P T, PTT, AMYL, CMP, LIPA, PHOS ####[place] [address]#### TRANSF ####[place] [address] Calcium 9.7 mg/dL Normal 8.5-10.5 [facility] Comment on above: Performed By: #### P T, PTT, AMYL, CMP, LIPA, PHOS ####[place] [address]#### TRANSF ####[place] [address] Chloride 98 mmol/L Normal 98-110 [facility] Comment on above: Performed By: #### P T, PTT, AMYL, CMP, LIPA, PHOS ####[place] [address]#### TRANSF ####[place] [address] CO2 28 mmol/L Normal 23-32 [facility] Comment on above: Performed By: #### P T, PTT, AMYL, CMP, LIPA, PHOS ####[place] [address]#### TRANSF ####[place] [address] Creatinine 0.68 mg/dL Low 0.70-1.40 [facility] Comment on above: Performed By: #### P T, PTT, AMYL, CMP, LIPA, PHOS ####[place] [address]#### TRANSF ####[place] [address] eGFR (non-black) mL/min/{1.73_m2} Normal >60 [facility] Comment on above: Performed By: #### P T, PTT, AMYL, CMP, LIPA, PHOS ####[place] [address]#### TRANSF ####[place] [address] Glucose mass conc 110 mg/dL High 65-100 [facility] Comment on above: Performed By: #### P T, PTT, AMYL, CMP, LIPA, PHOS ####[place] [address]#### TRANSF ####[place] [address] Potassium molar conc 4.7 mmol/L Normal 3.5-5.0 [facility] Comment on above: Performed By: #### P T, PTT, AMYL, CMP, LIPA, PHOS ####[place] [address]#### TRANSF ####[place] [address] Protein 7.8 g/dL Normal 6.0-8.4 [facility] Comment on above: Performed By: #### P T, PTT, AMYL, CMP, LIPA, PHOS ####[place] [address]#### TRANSF ####[place] [address] Sodium 138 mmol/L Normal 135-146 [facility] Comment on above: Performed By: #### P T, PTT, AMYL, CMP, LIPA, PHOS ####[address] [phone]#### TRANSF ####[facility] [place], [place] [phone] Urea nitrogen 13 mg/dL Normal 10-25 [facility] Comment on above: Performed By: #### P T, PTT, AMYL, CMP, LIPA, PHOS ####[place] [address] [place], [place] [phone]#### TRANSF ####[place] [address] [place] [phone] NURSING PROGon 09-24-2017 NURSING PROG HNO ID: [id number] thor: Nayeli Humphries (Rn) MOUSTAPHA Pelletierervice: RadiologyAuthor Type: Registered NurseType: Nursing Progress NoteFiled: 09/24/2017 10:26 AMNote Text: Radiology Service Progress NotePATIENT NAME: Rocio JacksonN: [id number] OF SERVICE: September 24, 2017TIME: 10:25 AMPATIENT WEIGHT: 184 LBSPATIENT IDENTITY VERIFICATION COMPLETED USING TWO (2) METHODS: Patientconfirmed name verbally and Date of .PATIENT GENDER DATA: MaleCONTRAST INDUCED NEPHROPATHY RISK FACTORS: Patient age > 60 years,Diabetic: Yes. Current medication(s): Metformin. Patient currently hasinsulin pump?: No. and Home going recommendation given YesCREATININE:CreatinineDate Value Ref Range Dmeslb8209/01/2017 0.54 (L) 0.70 - 1.40 mg/dL Final08/31/2017 0.56 (L) 0.70 - 1.40 mg/dL Final08/30/2017 0.59 (L) 0.70 - 1.40 mg/dL Final eGFR-All Other RacesDate Value Ref Range Oxxzgi3809/01/2017 >60 >60 . Final eGFR- AmericanDate Value Ref Range Ffwsuo2509/01/2017 >60 >60 Final P.O.C.T. RESULTS: N/A September 24, 2017TREATMENT: No Hydration needed.ALLERGIES: Reviewed and unchangedCONTRAST ALLERGY: NO.IV SITE: Ambulatory: A peripheral IV was started in the Right forearmwith a diffusic cath: 20 gauge. A Saline lock was inserted per protocol.IV SITE APPEARANCE: Clean,Dry and IntactSIGNED BY: Curt Ferguson 2017 10:25 AM Normal [facility] Protimeon 09-24-2017 INR Coag RelTime (Bld) 1.1 {INR} Normal 0.9-1.3 [facility] Comment on above: Result Comment: Tayler min K Antagonist (VKA) Therapeutic Range: INR 2 to 3 (Target INR of 2.5)Note: For patients treated with VKA drugs, such as warfarin, the [employer] 2012 Guideline recommends [...] al. Chest 2012, 141:7S-47SFelice RA, et al. [facility] 2017, 70: 252-289 Performed By: #### P T, PTT, AMYL, CMP, LIPA, PHOS ####[address] [phone]#### TRANSF ####[facility] [place], [place] [phone] PT Sec 11.1 sec Normal 9.7-13.0 [facility] Comment on above: Performed By: #### P T, PTT, AMYL, CMP, LIPA, PHOS ####[address] [phone]#### TRANSF ####[facility] [place], [place] [phone] Type and SCR (30D)on 018 ABO/RH(D) Positive Normal [facility] Comment on above: Performed By: #### P T, PTT, AMYL, CMP, LIPA, PHOS ####[address] [phone]#### TRANSF ####[address] [phone] Antibody Screen Negative Normal [facility] Comment on above: Performed By: #### P T, PTT, AMYL, CMP, LIPA, PHOS ####[address] [phone]#### TRANSF ####[address] [phone] HOSPon 09-16-2017 HOSP Patient:Jason Jackson RN: Height:5' [...] 3.5HEMA* 29.1 % 09/24/2017 51.0 39.0Progress Notes ([facility] [address]):Michael Jolley MD 09/27/2017 12:29 PM SignedSURGERY PREOPERATIVE VISIT NOTEName: Rocio JacksonMedical Record: [id number] No.: [id number] Frisch is a 62 year old male [...] Date- ANGIOPLASTY HX 05/15/2011 2 stents s/p [place];[facility]- CHOLECYSTECTOMY 08/11/2017 [facility]- PICC LINE INSERT/CONSULT 08/16/2017SOCIAL HISTORY:Social HistorySubstance [...] Patient understands risk of medical complicationsincluding pneumonia, [place], UTI and . Patient expressed understanding andconsented to the surgery.The patient had an opportunity to ask additional questions that were answered.The patient expressed that they understood.A consent form was signed today.Prescriptions were explained and provided to the patient.Magalys Alvarez RNPrevious VersionProgress Notes ([facility]):Magalys Alvarez RN 09/23/2017 5:01 PM SignedPatient is scheduled for [place] on 09/30/[address] Jolley.09/16/2017 Cardiac Clearance request faxed to patient dinkey operator slag for riskstratification and recommendations for Eliquis and AsaCall to office today to check status of request. Nurse unavailable. Awaitingreturn call from nurse.Dr. Irving Rock [address] [phone] [id number] Magalys Alvarez RN 09/24/2017 1:48 PM SignedReceived return call from [facility].Patient is pending a stress test on 09/28/2017. Dr. Abreu's office will sendcardiac stratification letter after testing completed.Per Dr. Jolley, patient is to hold Eliquis and Asa (last dose 09/23/2017). Normal [facility] CASE MANAGEMon 09-01-2017 CASE MANAGEM HNO ID: [id number] thor: Alexandrea (Rn) Thom, RNService: Care ManagementAuthor Type: Registered NurseType: Care Mgt Progress NoteFiled: 09/01/2017 11:42 AMNote Text:CARE MANAGEMENT DISCHARGE NOTESERVICE DATE: 09/01/2017SERVICE TIME: 11:02 AM LOS: 19 daysAdmission Date: 08/13/2017DISCHARGE ARRANGEMENT (list agency and phone number)halfway facilityProvider: [facility] WCTMOZKYF ASSESSMENT:Caregiver is ready, willing and able to meet the patient's needs asrecommended by the inter-professional team? YesPatient's transition needs and plan for meeting these needs: SNFDoes the patient have an acute stroke diagnosis, or has the patient had astroke during this admission? NoHANDOFF COMMUNICATION:SNFTRANSPORTAT ION ARRANGEMENTS:Car Sisters will drive pt to the SNFADDITIONAL CONTACT RESOURCES: nonePlan is for dc today to [facility] in [place].The pt and his sisters have verbalized agreement with this plan.SIGNATURE: Alexandrea Tomas RN PATIENT NAME: Rocio TorresKandisTE: September 01, 2017 : 11:02 AM PAGER/CONTACT #: [phone] Normal [facility] CBC and Differentialon 09-01 Abs Baso <0.03 Normal <0.11 [facility] Comment on above: Performed By: #### P T, PTT, AMYL, CMP, LIPA, PHOS ####[facility] [place] [phone]#### TRANSF ####[facility] [place] [phone] Abs Lamar 0.44 k/uL Normal <0.87 [facility] Comment on above: Performed By: #### P T, PTT, AMYL, CMP, LIPA, PHOS ####[place] [address]#### TRANSF ####[place] [address] Abs Neut 2.43 k/uL Normal 1.45-7.50 [facility] Comment on above: Performed By: #### P T, PTT, AMYL, CMP, LIPA, PHOS ####[place] [address]#### TRANSF ####[place] [address] Basophils/100 WBC Auto (Bld) 0.4 % Normal [facility] Comment on above: Performed By: #### P T, PTT, AMYL, CMP, LIPA, PHOS ####[place] [address]#### TRANSF ####[place] [address] DTYPE Auto Diff Normal [facility] Comment on above: Performed By: #### P T, PTT, AMYL, CMP, LIPA, PHOS ####[place] [address]#### TRANSF ####[place] [phone] Eosinophils 0.26 10*3/uL Normal <0.46 [facility] Comment on above: Performed By: #### P T, PTT, AMYL, CMP, LIPA, PHOS ####[place] [address]#### TRANSF ####[place] [phone] Eosinophils/100 leukocytes 5.3 % Normal [facility] Comment on above: Performed By: #### P T, PTT, AMYL, CMP, LIPA, PHOS ####[place] [address]#### TRANSF ####[place] [phone] Erythrocyte distribution width Auto Ratio (RBC) 15.3 % High 11.5-15.0 [facility] Comment on above: Performed By: #### P T, PTT, AMYL, CMP, LIPA, PHOS ####[place] [address]#### TRANSF ####[place] [phone] Erythrocytes (RBC) 2.93 10*6/uL Low 4.20-6.00 [facility] Comment on above: Performed By: #### P T, PTT, AMYL, CMP, LIPA, PHOS ####[place] [address]#### TRANSF ####[place] [address] Hematocrit (HCT) 25.0 % Low 39.0-51.0 [facility] Comment on above: Performed By: #### P T, PTT, AMYL, CMP, LIPA, PHOS ####[place] [address]#### TRANSF ####[place] [phone] Hemoglobin mass conc (Bld) 7.9 g/dL Low 13.0-17.0 [facility] Comment on above: Performed By: #### P T, PTT, AMYL, CMP, LIPA, PHOS ####[place] [address]#### TRANSF ####[place] [phone] Lymphocytes 1.72 10*3/uL Normal 1.00-4.00 [facility] Comment on above: Performed By: #### P T, PTT, AMYL, CMP, LIPA, PHOS ####[place] [address]#### TRANSF ####[place] [address] Lymphocytes/100 leukocytes 35.3 % Normal [facility] Comment on above: Performed By: #### P T, PTT, AMYL, CMP, LIPA, PHOS ####[address]#### TRANSF ####[place] [address] MCH 27.0 pG Normal 26.0-34.0 [facility] Comment on above: Performed By: #### P T, PTT, AMYL, CMP, LIPA, PHOS ####[place] [address]#### TRANSF ####[place] [phone] MCHC mass conc (RBC) 31.6 g/dL Normal 30.5-36.0 [facility] Comment on above: Performed By: #### P T, PTT, AMYL, CMP, LIPA, PHOS ####[address] [address]#### TRANSF ####[place] [phone] MCV 85.3 fL Normal 80.0-100.0 [facility] Comment on above: Performed By: #### P T, PTT, AMYL, CMP, LIPA, PHOS ####[address]#### TRANSF ####[place] [address] [address] [place] [phone] Monocytes/100 leukocytes 9.0 % Normal [facility] Comment on above: Performed By: #### P T, PTT, AMYL, CMP, LIPA, PHOS ####[place] [address]#### TRANSF ####[phone] Neutrophils/100 WBC Auto (Bld) 50.0 % Normal [facility] Comment on above: Performed By: #### P T, PTT, AMYL, CMP, LIPA, PHOS ####[place] [address]#### TRANSF ####[place] [phone] Platelet mean volume (PMV) 9.7 fL Normal 9.0-12.7 [facility] Comment on above: Performed By: #### P T, PTT, AMYL, CMP, LIPA, PHOS ####[place] [address]#### TRANSF ####[place] [phone] Platelets 495 10*3/uL High 150-400 [facility] Comment on above: Performed By: #### P T, PTT, AMYL, CMP, LIPA, PHOS ####[address]#### TRANSF ####[place] [phone] WBC (Leukocytes) 4.87 10*3/uL Normal 3.70-11.00 [facility] Comment on above: Performed By: #### P T, PTT, AMYL, CMP, LIPA, PHOS ####[address] [place] [phone]#### TRANSF ####[facility] [address] [place], [place] [phone] CNDSon 09-01-2017 CNDS HNO ID: [id number] thor: Allegra Garcia) MiglionicoService: ColorectalAuthor Type: Physician AssistantType: Discharge SummariesFiled: 09/02/2017 11:51 AMNote Text:DISCHARGE SUMMARYPATIENT NAME: Rocio Jackson ADMISSION DATE: 08/13/2017MRN: [id number] DISCHARGE DATE: 09/01/2017ATTENDING PHYSICIAN: Michael Cedillo) FroilanREBOB FOR HOSPITALIZATION: Partial duodenal obstruction due to [...] he [facility] Prior to [...] Cardiology, GastroenterologyPATIENT CONDITION AT DISCHARGE: StableDISCHARGE DISPOSITION: Alf FacilityINFORMATION PROVIDED TO PATIENT:Instructions for My Care at Home or Healthcare FacilityThese instructions explain what you or your career technical education teacher need to do tocontinue your care at home or at another healthcare facility? Please go over these instructions with your nurse and career technical education teacher.? If you are not sure about something, [...] Department Center09/15/2017 1:45 PM Michael Cedillo) Jolley [facility] FvWestValleyIT IS EXTREMELY IMPORTANT FOR YOU TO [...] 02, 2017 : 11:13 AM PAGER/CONTACT #: [phone] [facility] CONSULT PROGon 09-01-2017 CONSULT PROG HNO ID: [id number] thor: Jessee Lottervice: Cardiovascular DiseaseAuthor Type: PhysicianType: [...] for for bleeding issuesadvise f/u with primary dinkey operator slag as out ptAll questions answered.Subjective:Doing well no [...] Date- ANGIOPLASTY HX 05/15/2011 2 stents s/p [place];[facility]- CHOLECYSTECTOMY 08/11/2017 [facility]- PICC LINE INSERT/CONSULT 08/16/2017Prior to Admission [...] acting) (HumaLOG) SUBCUTANEOUS w MEALSAND HSphenol 1 Hodges (CHLORASEPTIC) 1 Hodges MUCOUS MEMBRANE (TOPICAL MOUTH ANDTHROAT) q 2 [...] Date: September 01, 2017Time: 10:00 AM Normal [facility] Comp Metabolic Panelon 09-01 Alanine aminotransferase (ALT) 74 U/L High 5-50 [facility] Comment on above: Performed By: #### P T, PTT, AMYL, CMP, LIPA, PHOS ####[place] [address]#### TRANSF ####[place] [phone] Albumin 2.9 g/dL Low 3.5-5.0 [facility] Comment on above: Performed By: #### P T, PTT, AMYL, CMP, LIPA, PHOS ####[place] [address]#### TRANSF ####[place] [phone] Alkaline phosphatase (ALP) 490 U/L High 40-150 [facility] Comment on above: Performed By: #### P T, PTT, AMYL, CMP, LIPA, PHOS ####[place] [address]24[address]#### TRANSF ####[phone] Anion gap 7 mmol/L Low 9-18 [facility] Comment on above: Performed By: #### P T, PTT, AMYL, CMP, LIPA, PHOS ####[place] [address]#### TRANSF ####[place] [address] Aspartate aminotransferase (AST) 93 U/L High 7-40 [facility] Comment on above: Performed By: #### P T, PTT, AMYL, CMP, LIPA, PHOS ####[place] [address]#### TRANSF ####[place] [address] Bilirubin (total) 0.4 mg/dL Normal 0.0-1.5 [facility] Comment on above: Performed By: #### P T, PTT, AMYL, CMP, LIPA, PHOS ####[place] [address]#### TRANSF ####[place] [address] Calcium 8.0 mg/dL Low 8.5-10.5 [facility] Comment on above: Performed By: #### P T, PTT, AMYL, CMP, LIPA, PHOS ####[place] [address]#### TRANSF ####[place] [address] Chloride 101 mmol/L Normal 98-110 [facility] Comment on above: Performed By: #### P T, PTT, AMYL, CMP, LIPA, PHOS ####[place] [address]#### TRANSF ####[address] [place] [phone] CO2 29 mmol/L Normal 23-32 [facility] Comment on above: Performed By: #### P T, PTT, AMYL, CMP, LIPA, PHOS ####[place] [address]#### TRANSF ####[place] [address] Creatinine 0.54 mg/dL Low 0.70-1.40 [facility] Comment on above: Performed By: #### P T, PTT, AMYL, CMP, LIPA, PHOS ####[place] [address]#### TRANSF ####[place] [address] eGFR (non-black) mL/min/{1.73_m2} Normal >60 [facility] Comment on above: Performed By: #### P T, PTT, AMYL, CMP, LIPA, PHOS ####[place] [address]#### TRANSF ####[place] [address] Glucose mass conc 149 mg/dL High 65-100 [facility] Comment on above: Performed By: #### P T, PTT, AMYL, CMP, LIPA, PHOS ####[place] [address]#### TRANSF ####[place] [address] Potassium molar conc 4.3 mmol/L Normal 3.5-5.0 [facility] Comment on above: Performed By: #### P T, PTT, AMYL, CMP, LIPA, PHOS ####[place] [address]#### TRANSF ####[place] [address] Protein 6.6 g/dL Normal 6.0-8.4 [facility] Comment on above: Performed By: #### P T, PTT, AMYL, CMP, LIPA, PHOS ####[place] [address]#### TRANSF ####[place] [address] Sodium 137 mmol/L Normal 135-146 [facility] Comment on above: Performed By: #### P T, PTT, AMYL, CMP, LIPA, PHOS ####[place] [address]#### TRANSF ####[place] [phone] Urea nitrogen 11 mg/dL Normal 10-25 [facility] Comment on above: Performed By: #### P T, PTT, AMYL, CMP, LIPA, PHOS ####[place] [address]#### TRANSF ####[place] [address] Magnesiumon 09-01-2017 Magnesium 2.3 mg/dL Normal 1.7-2.6 [facility] Comment on above: Performed By: #### P T, PTT, AMYL, CMP, LIPA, PHOS ####[place] [address]#### TRANSF ####[place] [phone] NURSING PROGon 09-01-2017 NURSING PROG HNO ID: [id number] thor: Sabrina (Rn) Ever, MOUSTAPHAervice: (none)Author Type: Registered NurseType: Nursing Progress NoteFiled: 09/01/2017 11:54 AMNote Text: Nursing Progress NotePatient Name: Rocio JacksonPETRONA: [id number] Location: [address]/[place] ____Daily Note:1153- Surgery López fisher in room PK336. Went to flush biliary drainand large amount of output started draining from site. Also does patientneed phosphate prior to d/c? Thanks! -mary ellen #[id number] Awaiting further orders.This note was completed by: Sabrina Cutris RN [facility] PLAN OF CAREon 09-01-2017 PLAN OF CARE HNO ID: [id number] thor: Miriam Britt (Civil Division Deputy Sheriff)Service: (none)Author Type: TechnicianType: Plan of CareFiled: 09/02/2017 12:34 PMNote Text: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 Patient to use [facility] Bedside Delivery - N/A2. If fax, patient would like us to fax prescriptions to [facility]. Pharmacy: b. Location: c. Phone:3. Insurance card on file - N/A4. Credit card for payment - N/A [facility] PROGRESSon 09-01-2017 PROGRESS HNO ID: [id number] thor: Kayleen (Res) BenliceService: General SurgeryAuthor Type: ResidentType: Progress NotesFiled: 09/01/2017 7:46 AMNote Text:PROGRESS NOTES - SURGICAL SERVICESPATIENT NAME: Rocio JacksonMRN: [id number] HISTORY OF PRESENT ILLNESS:Resting well. No acute [...] PICC line prior to discharge-DC today, with [facility] or to SNFSIGNATURE: Kayleen Gonzales MDDATE: September 01, 2017TIME: 7:46 AM Normal [facility] Phosphoruson 09-01-2017 Phosphate 2.0 mg/dL Low 2.5-4.5 [facility] Comment on above: Performed By: #### P T, PTT, AMYL, CMP, LIPA, PHOS ####[facility] [place], [place] [phone]#### TRANSF ####[facility] [address] [place], [place] [phone] ALLIED HEALTHon 08-31-2017 ALLIED HEALTH HNO ID: [id number] thor: Lauren Riley (Chaplain)vice: Spiritual CareAuthor Type: ChaplainType: Allied HealthFiled: 08/31/2017 11:01 AMNote Text:SPIRITUAL CARE PROGRESS NOTESERVICE DATE: 08/31/2017SERVICE TIME: 10:15 [facility] provided spiritual care visit with patient per request forSpiritual Care consultation. Patient was present in the room with 2family members. I provided active listening and introduction of ourservices as needed.Patient was introduced to the resources offered through Spiritual Care andHealing Services, and informed of the availability of a pilot instructor shouldfurther needs arise. There were no further needs at this time.To contact the Spiritual Care Department: Please call [phone], [address] aSpiritual Care Consult (or page the pilot instructor on-call at [phone] foremerarkansas children's [facility] hospitalt needs).SIGNATURE: Chaplain [place] PATIENT NAME: Rocio TorresdonnyDATE: August 31, 2017 : 10:59 AM PAGER/CONTACT #: [phone] [facility] CASE MANAGEMon 08-31-2017 CASE MANAGEM HNO ID: [id number] thor: Alexandrea (Rn) MOUSTAPHA Tomaservice: Care ManagementAuthor Type: Registered NurseType: Care Mgt Progress NoteFiled: 08/31/2017 2:12 PMNote Text:CARE MANAGEMENT PROGRESS NOTESERVICE DATE: 08/31/2017SERVICE TIME: 12:14 PM LOS: 18 daysNeeds Prior to Discharge: To Be DeterminedThis CM met with Pt and his sisters at bedside.Per Pt and his sisters, the [place] [facility] [place].Medical Clearance is needed.Per discussion with SAIMA Briggs, the plan is for dc tomorrow,SIGNATURE: Alexandrea Tomas RN PATIENT NAME: Rocio Sibley: August 31, 2017 : 12:12 PM PAGER/CONTACT #: [phone] Normal [facility] CBC and Differentialon 08-31 Abs Baso <0.03 Normal <0.11 [facility] Comment on above: Performed By: #### P T, PTT, AMYL, CMP, LIPA, PHOS ####[place] [address]#### TRANSF ####[place] [address] [address] AvJustin [place] [phone] Abs Lamar 0.30 k/uL Normal <0.87 [facility] Comment on above: Performed By: #### P T, PTT, AMYL, CMP, LIPA, PHOS ####[place] [address]#### TRANSF ####[place] [address] [place]Bri[place] [address] Abs Neut 2.32 k/uL Normal 1.45-7.50 [facility] Comment on above: Performed By: #### P T, PTT, AMYL, CMP, LIPA, PHOS ####[place] [address]#### TRANSF ####[place] [address] [address] AvJust[place] [phone] Basophils/100 WBC Auto (Bld) 0.5 % Normal [facility] Comment on above: Performed By: #### P T, PTT, AMYL, CMP, LIPA, PHOS ####[place] [address]#### TRANSF ####[place] [address] [address] [place] [phone] DTYPE Auto Diff Normal [facility] Comment on above: Performed By: #### P T, PTT, AMYL, CMP, LIPA, PHOS ####[place] [address]#### TRANSF ####[place] [address] Eosinophils 0.23 10*3/uL Normal <0.46 [facility] Comment on above: Performed By: #### P T, PTT, AMYL, CMP, LIPA, PHOS ####[place] [address]#### TRANSF ####[place] [address] Eosinophils/100 leukocytes 5.2 % Normal [facility] Comment on above: Performed By: #### P T, PTT, AMYL, CMP, LIPA, PHOS ####[place] [address]#### TRANSF ####[place] [address] Erythrocyte distribution width Auto Ratio (RBC) 15.2 % High 11.5-15.0 [facility] Comment on above: Performed By: #### P T, PTT, AMYL, CMP, LIPA, PHOS ####[place] [address]#### TRANSF ####[place] [address] Erythrocytes (RBC) 2.94 10*6/uL Low 4.20-6.00 [facility] Comment on above: Performed By: #### P T, PTT, AMYL, CMP, LIPA, PHOS ####[place] [address]#### TRANSF ####[address] [phone] Hematocrit (HCT) 25.1 % Low 39.0-51.0 [facility] Comment on above: Performed By: #### P T, PTT, AMYL, CMP, LIPA, PHOS ####[place] [address]#### TRANSF ####[place] [address] Hemoglobin mass conc (Bld) 8.0 g/dL Low 13.0-17.0 [facility] Comment on above: Performed By: #### P T, PTT, AMYL, CMP, LIPA, PHOS ####[place] [address]#### TRANSF ####[place] [address] Lymphocytes 1.56 10*3/uL Normal 1.00-4.00 [facility] Comment on above: Performed By: #### P T, PTT, AMYL, CMP, LIPA, PHOS ####[place] [address]#### TRANSF ####[place] [address] Lymphocytes/100 leukocytes 35.2 % Normal [facility] Comment on above: Performed By: #### P T, PTT, AMYL, CMP, LIPA, PHOS ####[place] [address]#### TRANSF ####[place] [address] MCH 27.2 pG Normal 26.0-34.0 [facility] Comment on above: Performed By: #### P T, PTT, AMYL, CMP, LIPA, PHOS ####[place] [address]#### TRANSF ####[place] [address] MCHC mass conc (RBC) 31.9 g/dL Normal 30.5-36.0 [facility] Comment on above: Performed By: #### P T, PTT, AMYL, CMP, LIPA, PHOS ####[address]#### TRANSF ####[place] [address] MCV 85.4 fL Normal 80.0-100.0 [facility] Comment on above: Performed By: #### P T, PTT, AMYL, CMP, LIPA, PHOS ####[place] [address]#### TRANSF ####[place] [address] Monocytes/100 leukocytes 6.8 % Normal [facility] Comment on above: Performed By: #### P T, PTT, AMYL, CMP, LIPA, PHOS ####[place] [address]#### TRANSF ####[place] [address] Neutrophils/100 WBC Auto (Bld) 52.3 % Normal [facility] Comment on above: Performed By: #### P T, PTT, AMYL, CMP, LIPA, PHOS ####[address]#### TRANSF ####[place] [address] Platelet mean volume (PMV) 9.3 fL Normal 9.0-12.7 [facility] Comment on above: Performed By: #### P T, PTT, AMYL, CMP, LIPA, PHOS ####[address]#### TRANSF ####[place] [phone] Platelets 470 10*3/uL High 150-400 [facility] Comment on above: Performed By: #### P T, PTT, AMYL, CMP, LIPA, PHOS ####[place] [address]24[address]#### TRANSF ####[phone] WBC (Leukocytes) 4.43 10*3/uL Normal 3.70-11.00 [facility] Comment on above: Performed By: #### P T, PTT, AMYL, CMP, LIPA, PHOS ####[address]#### TRANSF ####[place] [phone] Comp Metabolic Panelon 08-31 Alanine aminotransferase (ALT) 55 U/L High 5-50 [facility] Comment on above: Performed By: #### P T, PTT, AMYL, CMP, LIPA, PHOS ####[place] [address]#### TRANSF ####[place] [phone] Albumin 2.8 g/dL Low 3.5-5.0 [facility] Comment on above: Performed By: #### P T, PTT, AMYL, CMP, LIPA, PHOS ####[place] [address]#### TRANSF ####[place] [phone] Alkaline phosphatase (ALP) 475 U/L High 40-150 [facility] Comment on above: Performed By: #### P T, PTT, AMYL, CMP, LIPA, PHOS ####[place] [address]#### TRANSF ####[place] [address] Anion gap 7 mmol/L Low 9-18 [facility] Comment on above: Performed By: #### P T, PTT, AMYL, CMP, LIPA, PHOS ####[place] [address]#### TRANSF ####[place] [address] Aspartate aminotransferase (AST) 59 U/L High 7-40 [facility] Comment on above: Performed By: #### P T, PTT, AMYL, CMP, LIPA, PHOS ####[place] [address]#### TRANSF ####[place] [address] Bilirubin (total) 0.4 mg/dL Normal 0.0-1.5 [facility] Comment on above: Performed By: #### P T, PTT, AMYL, CMP, LIPA, PHOS ####[place] [address]#### TRANSF ####[place] [address] Calcium 7.9 mg/dL Low 8.5-10.5 [facility] Comment on above: Performed By: #### P T, PTT, AMYL, CMP, LIPA, PHOS ####[place] [address]#### TRANSF ####[place] [address] Chloride 102 mmol/L Normal 98-110 [facility] Comment on above: Performed By: #### P T, PTT, AMYL, CMP, LIPA, PHOS ####[place] [address]#### TRANSF ####[place] [address] CO2 29 mmol/L Normal 23-32 [facility] Comment on above: Performed By: #### P T, PTT, AMYL, CMP, LIPA, PHOS ####[place] [address]#### TRANSF ####[place] [address] Creatinine 0.56 mg/dL Low 0.70-1.40 [facility] Comment on above: Performed By: #### P T, PTT, AMYL, CMP, LIPA, PHOS ####[place] [address]#### TRANSF ####[place] [address] eGFR (non-black) mL/min/{1.73_m2} Normal >60 [facility] Comment on above: Performed By: #### P T, PTT, AMYL, CMP, LIPA, PHOS ####[place] [address]#### TRANSF ####[place] [address] Glucose mass conc 165 mg/dL High 65-100 [facility] Comment on above: Performed By: #### P T, PTT, AMYL, CMP, LIPA, PHOS ####[address]#### TRANSF ####[place] [address] Potassium molar conc 4.4 mmol/L Normal 3.5-5.0 [facility] Comment on above: Performed By: #### P T, PTT, AMYL, CMP, LIPA, PHOS ####[place] [address]#### TRANSF ####[place] [address] Protein 6.4 g/dL Normal 6.0-8.4 [facility] Comment on above: Performed By: #### P T, PTT, AMYL, CMP, LIPA, PHOS ####[place] [address]#### TRANSF ####[place] [address] Sodium 138 mmol/L Normal 135-146 [facility] Comment on above: Performed By: #### P T, PTT, AMYL, CMP, LIPA, PHOS ####[place] [address]#### TRANSF ####[place] [address] Urea nitrogen 10 mg/dL Normal 10-25 [facility] Comment on above: Performed By: #### P T, PTT, AMYL, CMP, LIPA, PHOS ####[place] [address]#### TRANSF ####[place] [address] Magnesiumon 08-31-2017 Magnesium 2.3 mg/dL Normal 1.7-2.6 [facility] Comment on above: Performed By: #### P T, PTT, AMYL, CMP, LIPA, PHOS ####[place] [address]#### TRANSF ####[place] [address] PLAN OF CAREon 08-31-2017 PLAN OF CARE HNO ID: [id number] thor: Miriam Britt (Civil Division Deputy Sheriff)Service: (none)Author Type: TechnicianType: Plan of CareFiled: 08/31/2017 2:26 PMNote Text: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 Patient to use [facility] Bedside Delivery - N/A2. If fax, patient would like us to fax prescriptions to [facility]. Pharmacy: b. Location: c. Phone:3. Insurance card on file - N/A4. Credit card for payment - N/A Normal [facility] PLAN OF CARE HNO ID: [id number] thor: Macie Cruz (Pharmacist)Service: PharmacyAuthor Type: PharmacistType: Plan of CareFiled: 08/31/2017 9:28 AMNote Text:DISCHARGE MEDICATION REVIEW BY PHARMACYPatient Name: Rocio Jackson : [id number] Admission Date: 08/13/2017Date of Contact: August 31, 2017 Time of Contact: 9:28 AMMedication list was reviewed by a Pharmacist for drug interactions or drugrelated problems:Queenie Cruz, PharmacistToledo Hospital 2017 9:28 AMMedication ListSTART taking these [...] IR 5 mg immediate release tablet Normal [facility] PROGRESSon 08-31-2017 PROGRESS HNO ID: [id number] thor: Michael Cedillo) AugustinService: General SurgeryAuthor Type: PhysicianType: Progress NotesFiled: 08/31/2017 7:00 PMNote Text:PROGRESS NOTES - SURGICAL SERVICESPATIENT NAME: Rocio HayesN: [id number] HISTORY OF PRESENT ILLNESS:Resting well. No acute [...] discharge planningToms MD Froilan, MPH, FACSGeneral/Trauma/HPB SurgeryPager: [phone] Cell: [phone] 2017 Normal [facility] Phosphoruson 08-31-2017 Phosphate 2.1 mg/dL Low 2.5-4.5 [facility] Comment on above: Performed By: #### P T, PTT, AMYL, CMP, LIPA, PHOS ####[facility] [place], [place] [phone]#### TRANSF ####[facility] [place], [place] [phone] THERAPY NTon 08-31-2017 THERAPY NT HNO ID: [id number] thor: Adela (Joe) Carlin: Physical TherapyAuthor Type: Physical Therapy AssistantType: Therapy (PT/OT/Speech/Resp)Filed: 08/31/2017 3:24 PMNote Text: -Attestation signed by Tonia Schmitz at 08/31/2017 3:44 PMI reviewed and agree with the documentation corresponding to this therapyvisit.SIGNATURE: Tonia Schmitz, PTDATE: August 31, 2017TIME: 3:44 PM Ph ysical Therapy TreatmentSERVICE DATE: 08/31/2017SERVICE TIME: 1350 to 1415ROOM: [facility] ( OPERATING ROOM)Recommended Discharge Disposition: Subacute/SNFRecommended Discharge [...] on feet;Difficulty walking-musculoskeletalInter ventions Provided: Therapeutic Exercise (26858);Gait Training (23397)Therapeutic Exercise (85926) Treatment Minutes: 101 unitSkilled Intervention(s): Instruction in therapeutic exercise for B LEstrengtheningVerbal and tactile cuing provided for pace and performanceGait Training (89467) Treatment Minutes: 151 unitSkilled Intervention(s): Instruction in [...] 31, 2017 : 3:22 PM PAGER/CONTACT #: [phone] Normal [facility] Basic Metabolic Panlon 08-30 Anion gap 10 mmol/L Normal -18 [facility] Comment on above: Performed By: #### P T, PTT, AMYL, CMP, LIPA, PHOS ####[place] [address] [place], [place] [phone]#### TRANSF ####[facility] [place], [place] [phone] Calcium 8.1 mg/dL Low 8.5-10.5 [facility] Comment on above: Performed By: #### P T, PTT, AMYL, CMP, LIPA, PHOS ####[address] [phone]#### TRANSF ####[place] [address] Chloride 102 mmol/L Normal 98-110 [facility] Comment on above: Performed By: #### P T, PTT, AMYL, CMP, LIPA, PHOS ####[place] [address]#### TRANSF ####[place] [address] CO2 27 mmol/L Normal 23-32 [facility] Comment on above: Performed By: #### P T, PTT, AMYL, CMP, LIPA, PHOS ####[place] [address]#### TRANSF ####[place] [address] Creatinine 0.59 mg/dL Low 0.70-1.40 [facility] Comment on above: Performed By: #### P T, PTT, AMYL, CMP, LIPA, PHOS ####[place] [address]#### TRANSF ####[place] [address] eGFR (non-black) mL/min/{1.73_m2} Normal >60 [facility] Comment on above: Performed By: #### P T, PTT, AMYL, CMP, LIPA, PHOS ####[place] [address]#### TRANSF ####[place] [address] Glucose mass conc 133 mg/dL High 65-100 [facility] Comment on above: Performed By: #### P T, PTT, AMYL, CMP, LIPA, PHOS ####[place] [address]#### TRANSF ####[place] [address] Potassium molar conc 4.4 mmol/L Normal 3.5-5.0 [facility] Comment on above: Performed By: #### P T, PTT, AMYL, CMP, LIPA, PHOS ####[place] [address]#### TRANSF ####[place] [address] Sodium 139 mmol/L Normal 135-146 [facility] Comment on above: Performed By: #### P T, PTT, AMYL, CMP, LIPA, PHOS ####[place] [address]#### TRANSF ####[place] [address] Urea nitrogen 9 mg/dL Low 10-25 [facility] Comment on above: Performed By: #### P T, PTT, AMYL, CMP, LIPA, PHOS ####[place] [address]#### TRANSF ####[place] [address] CBC and Differentialon 08-30 Abs Baso <0.03 Normal <0.11 [facility] Comment on above: Performed By: #### P T, PTT, AMYL, CMP, LIPA, PHOS ####[place] [address]#### TRANSF ####[place] [address] Abs Lamar 0.42 k/uL Normal <0.87 [facility] Comment on above: Performed By: #### P T, PTT, AMYL, CMP, LIPA, PHOS ####[place] [id number]#### TRANSF ####[place] [address] Abs Neut 2.87 k/uL Normal 1.45-7.50 [facility] Comment on above: Performed By: #### P T, PTT, AMYL, CMP, LIPA, PHOS ####[place] [address]#### TRANSF ####[address] [place] [address] Basophils/100 WBC Auto (Bld) 0.4 % Normal [facility] Comment on above: Performed By: #### P T, PTT, AMYL, CMP, LIPA, PHOS ####[place] [address]#### TRANSF ####[place] [address] DTYPE Auto Diff Normal [facility] Comment on above: Performed By: #### P T, PTT, AMYL, CMP, LIPA, PHOS ####[place] [address]#### TRANSF ####[place] [address] Eosinophils 0.18 10*3/uL Normal <0.46 [facility] Comment on above: Performed By: #### P T, PTT, AMYL, CMP, LIPA, PHOS ####[place] [address]#### TRANSF ####[place] [phone] Eosinophils/100 leukocytes 3.7 % Normal [facility] Comment on above: Performed By: #### P T, PTT, AMYL, CMP, LIPA, PHOS ####[place] [address]#### TRANSF ####[place] [phone] Erythrocyte distribution width Auto Ratio (RBC) 15.4 % High 11.5-15.0 [facility] Comment on above: Performed By: #### P T, PTT, AMYL, CMP, LIPA, PHOS ####[place] [address]#### TRANSF ####[place] [phone] Erythrocytes (RBC) 2.91 10*6/uL Low 4.20-6.00 [facility] Comment on above: Performed By: #### P T, PTT, AMYL, CMP, LIPA, PHOS ####[place] [address]#### TRANSF ####[place] [phone] Hematocrit (HCT) 24.9 % Low 39.0-51.0 [facility] Comment on above: Performed By: #### P T, PTT, AMYL, CMP, LIPA, PHOS ####[place] [address]#### TRANSF ####[place] [phone] Hemoglobin mass conc (Bld) 7.9 g/dL Low 13.0-17.0 [facility] Comment on above: Performed By: #### P T, PTT, AMYL, CMP, LIPA, PHOS ####[place] [address]#### TRANSF ####[place] [phone] Lymphocytes 1.44 10*3/uL Normal 1.00-4.00 [facility] Comment on above: Performed By: #### P T, PTT, AMYL, CMP, LIPA, PHOS ####[place] [address]#### TRANSF ####[place] [address] Lymphocytes/100 leukocytes 29.2 % Normal [facility] Comment on above: Performed By: #### P T, PTT, AMYL, CMP, LIPA, PHOS ####[place] [address]#### TRANSF ####[place] [phone] MCH 27.1 pG Normal 26.0-34.0 [facility] Comment on above: Performed By: #### P T, PTT, AMYL, CMP, LIPA, PHOS ####[place] [address]#### TRANSF ####[place] [phone] MCHC mass conc (RBC) 31.7 g/dL Normal 30.5-36.0 [facility] Comment on above: Performed By: #### P T, PTT, AMYL, CMP, LIPA, PHOS ####[place] [address]#### TRANSF ####[place] [phone] MCV 85.6 fL Normal 80.0-100.0 [facility] Comment on above: Performed By: #### P T, PTT, AMYL, CMP, LIPA, PHOS ####[place] [address]#### TRANSF ####[place] [address] Monocytes/100 leukocytes 8.5 % Normal [facility] Comment on above: Performed By: #### P T, PTT, AMYL, CMP, LIPA, PHOS ####[address]#### TRANSF ####[address] [place] [place] [phone] Neutrophils/100 WBC Auto (Bld) 58.2 % Normal [facility] Comment on above: Performed By: #### P T, PTT, AMYL, CMP, LIPA, PHOS ####[place] [address]#### TRANSF ####[place] [phone] Platelet mean volume (PMV) 9.4 fL Normal 9.0-12.7 [facility] Comment on above: Performed By: #### P T, PTT, AMYL, CMP, LIPA, PHOS ####[place] [address]#### TRANSF ####[place] [phone] Platelets 505 10*3/uL High 150-400 [facility] Comment on above: Performed By: #### P T, PTT, AMYL, CMP, LIPA, PHOS ####[place] [address]#### TRANSF ####[place] [phone] WBC (Leukocytes) 4.93 10*3/uL Normal 3.70-11.00 [facility] Comment on above: Performed By: #### P T, PTT, AMYL, CMP, LIPA, PHOS ####[place] [address]#### TRANSF ####[address] [place] [place] [phone] Hepatic Functn Panelon 08-30 Alanine aminotransferase (ALT) 34 U/L Normal 5-50 [facility] Comment on above: Performed By: #### P T, PTT, AMYL, CMP, LIPA, PHOS ####[place] [address]#### TRANSF ####[phone] Albumin 3.0 g/dL Low 3.5-5.0 [facility] Comment on above: Performed By: #### P T, PTT, AMYL, CMP, LIPA, PHOS ####[place] [address]#### TRANSF ####[place] [phone] Alkaline phosphatase (ALP) 480 U/L High 40-150 [facility] Comment on above: Performed By: #### P T, PTT, AMYL, CMP, LIPA, PHOS ####[place] [address]#### TRANSF ####[place] [phone] Aspartate aminotransferase (AST) 41 U/L High 7-40 [facility] Comment on above: Performed By: #### P T, PTT, AMYL, CMP, LIPA, PHOS ####[place] [address]#### TRANSF ####[place] [phone] Bilirubin (total) 0.5 mg/dL Normal 0.0-1.5 [facility] Comment on above: Performed By: #### P T, PTT, AMYL, CMP, LIPA, PHOS ####[place] [address]#### TRANSF ####[address] [place] [place] [phone] Bilirubin,Conjugated <0.2 Normal 0.0-0.4 [facility] Comment on above: Performed By: #### P T, PTT, AMYL, CMP, LIPA, PHOS ####[place] [address]#### TRANSF ####[place] [phone] Protein 6.6 g/dL Normal 6.0-8.4 [facility] Comment on above: Performed By: #### P T, PTT, AMYL, CMP, LIPA, PHOS ####[place] [address]#### TRANSF ####[place] [phone] Magnesiumon 08-30-2017 Magnesium 2.3 mg/dL Normal 1.7-2.6 [facility] Comment on above: Performed By: #### P T, PTT, AMYL, CMP, LIPA, PHOS ####[place] [address]#### TRANSF ####[place] [phone] PROGRESSon 08-30-2017 PROGRESS HNO ID: [id number] thor: Michael Cedillo) AugustinService: General SurgeryAuthor Type: PhysicianType: Progress NotesFiled: 08/30/2017 10:38 AMNote Text: SURGERY INPATIENT PROGRESS NOTESName: Rocio Boudreaux: [id number] and Plan:62 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 Doing well.-Continue fulls with supplements-Capped PTHC, no increased drainage from other drains-Will follow up CMP-No Abx-No [place]illa-VTE Prophylaxis: enoxaparin, SCDs-Routine surgical care: IS, OOB- Will remove PICC line prior to discharge-Anticipate DC early next week, with [facility] or to SNFS: Resting well. [...] acting) (HumaLOG) SUBCUTANEOUS w MEALSAND HSphenol 1 Hodges (CHLORASEPTIC) 1 Hodges MUCOUS MEMBRANE (TOPICAL MOUTH ANDTHROAT) q 2 [...] kg (192 lb) SpO2 99% BMI 29.19 kg/f1Bdetsf/Output Summary (Last 24 hours) at 08/30/17 0850Last [...] scant clear drainage.Serena Trent, MDPGY -1 [facility] SurgeryTol[facility] 201[address]:50 AMSTANNEKA NOTEI have independently seen and examined the patient today. I haveindependently reviewed all the imaging and the labs. I agree with keycomponents of the resident's note above. Care plan and decision making hasbeen discussed.PTC was capped, J-P continues to be serous, patient tolerated PTC cappingwithout any issuesAppropriate by mouth intakeDischarge planningToms MD Froilan, MPH, FACSGeneral/Trauma/HPB SurgeryPager: [phone] Cell: [phone] 2017 Normal [facility] Phosphoruson 08-30-2017 Phosphate 2.8 mg/dL Normal 2.5-4.5 [facility] Comment on above: Performed By: #### P T, PTT, AMYL, CMP, LIPA, PHOS ####[facility] [place], [place] [phone]#### TRANSF ####[facility] [place], [place] [phone] Basic Metabolic Panlon 08-29 Anion gap 10 mmol/L Normal 9-18 [facility] Comment on above: Performed By: #### P T, PTT, AMYL, CMP, LIPA, PHOS ####[place] [address]#### TRANSF ####[place] [phone] Calcium 8.4 mg/dL Low 8.5-10.5 [facility] Comment on above: Performed By: #### P T, PTT, AMYL, CMP, LIPA, PHOS ####[place] [address]#### TRANSF ####[place] [address] Chloride 103 mmol/L Normal 98-110 [facility] Comment on above: Performed By: #### P T, PTT, AMYL, CMP, LIPA, PHOS ####[place] [address]#### TRANSF ####[place] [address] CO2 26 mmol/L Normal 23-32 [facility] Comment on above: Performed By: #### P T, PTT, AMYL, CMP, LIPA, PHOS ####[place] [address]#### TRANSF ####[place] [address] Creatinine 0.66 mg/dL Low 0.70-1.40 [facility] Comment on above: Performed By: #### P T, PTT, AMYL, CMP, LIPA, PHOS ####[place] [address]#### TRANSF ####[place] [address] eGFR (non-black) mL/min/{1.73_m2} Normal >60 [facility] Comment on above: Performed By: #### P T, PTT, AMYL, CMP, LIPA, PHOS ####[place] [address]#### TRANSF ####[place] [address] Glucose mass conc 118 mg/dL High 65-100 [facility] Comment on above: Performed By: #### P T, PTT, AMYL, CMP, LIPA, PHOS ####[place] [address]#### TRANSF ####[place] [address] Potassium molar conc 4.3 mmol/L Normal 3.5-5.0 [facility] Comment on above: Performed By: #### P T, PTT, AMYL, CMP, LIPA, PHOS ####[place] [address]#### TRANSF ####[place] [address] Sodium 139 mmol/L Normal 135-146 [facility] Comment on above: Performed By: #### P T, PTT, AMYL, CMP, LIPA, PHOS ####[place] [address]#### TRANSF ####[place] [address] Urea nitrogen 10 mg/dL Normal 10-25 [facility] Comment on above: Performed By: #### P T, PTT, AMYL, CMP, LIPA, PHOS ####[place] [address]#### TRANSF ####[place] [phone] CBC and Differentialon 08-29 Abs Baso <0.03 Normal <0.11 [facility] Comment on above: Performed By: #### P T, PTT, AMYL, CMP, LIPA, PHOS ####[place] [address]#### TRANSF ####[place] [address] Abs Lamar 0.43 k/uL Normal <0.87 [facility] Comment on above: Performed By: #### P T, PTT, AMYL, CMP, LIPA, PHOS ####[place] [address]#### TRANSF ####[place] [address] Abs Neut 2.71 k/uL Normal 1.45-7.50 [facility] Comment on above: Performed By: #### P T, PTT, AMYL, CMP, LIPA, PHOS ####[place] [address]#### TRANSF ####[place] [address] Basophils/100 WBC Auto (Bld) 0.4 % Normal [facility] Comment on above: Performed By: #### P T, PTT, AMYL, CMP, LIPA, PHOS ####[place] [address]#### TRANSF ####[place] [address] DTYPE Auto Diff Normal [facility] Comment on above: Performed By: #### P T, PTT, AMYL, CMP, LIPA, PHOS ####[place] [address]#### TRANSF ####[place] [address] Eosinophils 0.15 10*3/uL Normal <0.46 [facility] Comment on above: Performed By: #### P T, PTT, AMYL, CMP, LIPA, PHOS ####[place] [address]#### TRANSF ####[place] [address] Eosinophils/100 leukocytes 3.2 % Normal [facility] Comment on above: Performed By: #### P T, PTT, AMYL, CMP, LIPA, PHOS ####[place] [address]#### TRANSF ####[place] [address] Erythrocyte distribution width Auto Ratio (RBC) 15.1 % High 11.5-15.0 [facility] Comment on above: Performed By: #### P T, PTT, AMYL, CMP, LIPA, PHOS ####[place] [address]#### TRANSF ####[place] [address] Erythrocytes (RBC) 2.98 10*6/uL Low 4.20-6.00 [facility] Comment on above: Performed By: #### P T, PTT, AMYL, CMP, LIPA, PHOS ####[place] [address]#### TRANSF ####[place] [address] Hematocrit (HCT) 26.1 % Low 39.0-51.0 [facility] Comment on above: Performed By: #### P T, PTT, AMYL, CMP, LIPA, PHOS ####[place] [address]#### TRANSF ####[place] [phone] Hemoglobin mass conc (Bld) 8.1 g/dL Low 13.0-17.0 [facility] Comment on above: Performed By: #### P T, PTT, AMYL, CMP, LIPA, PHOS ####[place] [address]#### TRANSF ####[place] [phone] Lymphocytes 1.44 10*3/uL Normal 1.00-4.00 [facility] Comment on above: Performed By: #### P T, PTT, AMYL, CMP, LIPA, PHOS ####[place] [address]#### TRANSF ####[place] [address] Lymphocytes/100 leukocytes 30.3 % Normal [facility] Comment on above: Performed By: #### P T, PTT, AMYL, CMP, LIPA, PHOS ####[place] [address]#### TRANSF ####[place] [address] MCH 27.2 pG Normal 26.0-34.0 [facility] Comment on above: Performed By: #### P T, PTT, AMYL, CMP, LIPA, PHOS ####[place] [address]#### TRANSF ####[place] [phone] MCHC mass conc (RBC) 31.0 g/dL Normal 30.5-36.0 [facility] Comment on above: Performed By: #### P T, PTT, AMYL, CMP, LIPA, PHOS ####[address]#### TRANSF ####[place] [phone] MCV 87.6 fL Normal 80.0-100.0 [facility] Comment on above: Performed By: #### P T, PTT, AMYL, CMP, LIPA, PHOS ####[place] [address]#### TRANSF ####[place] [address] Monocytes/100 leukocytes 9.1 % Normal [facility] Comment on above: Performed By: #### P T, PTT, AMYL, CMP, LIPA, PHOS ####[place] [address]#### TRANSF ####[place] [phone] Neutrophils/100 WBC Auto (Bld) 57.0 % Normal [facility] Comment on above: Performed By: #### P T, PTT, AMYL, CMP, LIPA, PHOS ####[place] [address]#### TRANSF ####[place] [phone] Platelet mean volume (PMV) 9.5 fL Normal 9.0-12.7 [facility] Comment on above: Performed By: #### P T, PTT, AMYL, CMP, LIPA, PHOS ####[place] [address]#### TRANSF ####[phone] Platelets 508 10*3/uL High 150-400 [facility] Comment on above: Performed By: #### P T, PTT, AMYL, CMP, LIPA, PHOS ####[place] [address]#### TRANSF ####[facility] [place], [place] [phone] WBC (Leukocytes) 4.75 10*3/uL Normal 3.70-11.00 [facility] Comment on above: Performed By: #### P T, PTT, AMYL, CMP, LIPA, PHOS ####[place] [phone]#### TRANSF ####[address] [phone] Magnesiumon 08-29-2017 Magnesium 2.2 mg/dL Normal 1.7-2.6 [facility] Comment on above: Performed By: #### P T, PTT, AMYL, CMP, LIPA, PHOS ####[place] [phone]#### TRANSF ####[address] [phone] NURSING PROGon 08-29-2017 NURSING PROG HNO ID: [id number] thor: Saima Kramer (Rn) Debra, RNService: (none)Author Type: Registered NurseType: Nursing Progress NoteFiled: 08/29/2017 4:09 PMNote Text: Nursing Progress NotePatient Name: Rocio JacksonN: [id number] Location: [place] [address]/[id number] ____Daily Note:Pt sitting in bed and upon [...] note was completed by: Saima Richardson RN [facility] PROGRESSon 08-29-2017 PROGRESS HNO ID: [id number] thor: Michael Cedillo) AugustinService: General SurgeryAuthor Type: PhysicianType: Progress NotesFiled: 08/29/2017 11:10 AMNote Text: SURGERY INPATIENT PROGRESS NOTESName: Rociomarisa HayesN: [id number] and Plan:62 year old male with duodenal [...] 5,000 Units SUBCUTANEOUS q 8 Hphenol 1 Hodges (CHLORASEPTIC) 1 Hodges MUCOUS MEMBRANE (TOPICAL MOUTH ANDTHROAT) q 2 [...] kg (192 lb) SpO2 97% BMI 29.19 kg/e2Otiphn/Output Summary (Last 24 hours) at 08/29/17 0737Last data filed at 08/29/17 0708 Gross per 24 hourIntake 2206 mlOutput 5475 mlNet -3269 mlGeneral Appearance: NADAbdomen: soft, non-tender, no distention. PTHC with bilious drainage, IRdrain with scant clear drainage.Akbar Lassiter MDGENEKETTERING HEALTH PRE[facility] PGY-47:37 AM08/29/2017*A review of daily goals, [...] cap PTC.Michael Jolley MD, MPH, FACSGeneral/Trauma/HPB SurgeryPager: [phone] Cell: [phone] 2017 Normal [facility] Phosphoruson 08-29-2017 Phosphate 2.6 mg/dL Normal 2.5-4.5 [facility] Comment on above: Performed By: #### P T, PTT, AMYL, CMP, LIPA, PHOS ####[facility] [place] [address]#### TRANSF ####[place] [address] Basic Metabolic Panlon 08-28 Anion gap 10 mmol/L Normal 9-18 [facility] Comment on above: Performed By: #### P T, PTT, AMYL, CMP, LIPA, PHOS ####[place] [address]#### TRANSF ####[place] [phone] Calcium 8.8 mg/dL Normal 8.5-10.5 [facility] Comment on above: Performed By: #### P T, PTT, AMYL, CMP, LIPA, PHOS ####[place] [address]#### TRANSF ####[place] [address] Chloride 102 mmol/L Normal 98-110 [facility] Comment on above: Performed By: #### P T, PTT, AMYL, CMP, LIPA, PHOS ####[place] [address]#### TRANSF ####[place] [address] CO2 26 mmol/L Normal 23-32 [facility] Comment on above: Performed By: #### P T, PTT, AMYL, CMP, LIPA, PHOS ####[place] [address]#### TRANSF ####[place] [address] Creatinine 0.71 mg/dL Normal 0.70-1.40 [facility] Comment on above: Performed By: #### P T, PTT, AMYL, CMP, LIPA, PHOS ####[place] [address]046[address]#### TRANSF ####[place] [address] eGFR (non-black) mL/min/{1.73_m2} Normal >60 [facility] Comment on above: Performed By: #### P T, PTT, AMYL, CMP, LIPA, PHOS ####[place] [address]#### TRANSF ####[place] [address] Glucose mass conc 138 mg/dL High 65-100 [facility] Comment on above: Performed By: #### P T, PTT, AMYL, CMP, LIPA, PHOS ####[place] [address]#### TRANSF ####[place] [address] Potassium molar conc 4.5 mmol/L Normal 3.5-5.0 [facility] Comment on above: Performed By: #### P T, PTT, AMYL, CMP, LIPA, PHOS ####[place] [address]#### TRANSF ####[place] [address] Sodium 138 mmol/L Normal 135-146 [facility] Comment on above: Performed By: #### P T, PTT, AMYL, CMP, LIPA, PHOS ####[place] [address]#### TRANSF ####[place] [address]174[address] Urea nitrogen 9 mg/dL Low 10-25 [facility] Comment on above: Performed By: #### P T, PTT, AMYL, CMP, LIPA, PHOS ####[place] [address]#### TRANSF ####[phone] CASE MANAGEMon 08-28-2017 CASE MANAGEM HNO ID: [id number] thor: Alexandrea (Rn) Thom, RNService: Care ManagementAuthor Type: Registered NurseType: Care Mgt Progress NoteFiled: 08/28/2017 2:51 PMNote Text:CARE MANAGEMENT PROGRESS NOTESERVICE DATE: 08/28/2017SERVICE TIME: 2:48 PM LOS: 15 daysNeeds Prior to Discharge: To Be Determined Medical Clearance needed.GI Soft Diet.Pt Remains with int and ext bliliary drain.Plan is for SNF vs HHC when medically cleared,per [facility] in [facility] notification is needed (not precert)CM remains available to assist with skilled dc needs.SIGNATURE: Alexandrea Tomas RN PATIENT NAME: Rocio VizcarraTE: August 28, 2017 : 2:47 PM PAGER/CONTACT #: [phone] Normal [facility] CBC and Differentialon 08-28 Abs Baso <0.03 Normal <0.11 [facility] Comment on above: Performed By: #### P T, PTT, AMYL, CMP, LIPA, PHOS ####[place] [address]#### TRANSF ####[place] [address] Abs Lamar 0.43 k/uL Normal <0.87 [facility] Comment on above: Performed By: #### P T, PTT, AMYL, CMP, LIPA, PHOS ####[place] [address]#### TRANSF ####[place] [phone] Abs Neut 3.60 k/uL Normal 1.45-7.50 [facility] Comment on above: Performed By: #### P T, PTT, AMYL, CMP, LIPA, PHOS ####[place] [address]#### TRANSF ####[place] [address] Basophils/100 WBC Auto (Bld) 0.3 % Normal [facility] Comment on above: Performed By: #### P T, PTT, AMYL, CMP, LIPA, PHOS ####[place] [address]#### TRANSF ####[place] [phone] DTYPE Auto Diff [facility] Comment on above: Performed By: #### P T, PTT, AMYL, CMP, LIPA, PHOS ####[place] [address]#### TRANSF ####[place] [address] Eosinophils 0.17 10*3/uL Normal <0.46 [facility] Comment on above: Performed By: #### P T, PTT, AMYL, CMP, LIPA, PHOS ####[place] [address]#### TRANSF ####[place] [address] Eosinophils/100 leukocytes 3.0 % Normal [facility] Comment on above: Performed By: #### P T, PTT, AMYL, CMP, LIPA, PHOS ####[place] [address]#### TRANSF ####[place] [address] Erythrocyte distribution width Auto Ratio (RBC) 15.5 % High 11.5-15.0 [facility] Comment on above: Performed By: #### P T, PTT, AMYL, CMP, LIPA, PHOS ####[place] [address]#### TRANSF ####[place] [address] Erythrocytes (RBC) 3.08 10*6/uL Low 4.20-6.00 [facility] Comment on above: Performed By: #### P T, PTT, AMYL, CMP, LIPA, PHOS ####[place] [address]#### TRANSF ####[place] [address] Hematocrit (HCT) 26.4 % Low 39.0-51.0 [facility] Comment on above: Performed By: #### P T, PTT, AMYL, CMP, LIPA, PHOS ####[place] [address]#### TRANSF ####[place] [address] Hemoglobin mass conc (Bld) 8.4 g/dL Low 13.0-17.0 [facility] Comment on above: Performed By: #### P T, PTT, AMYL, CMP, LIPA, PHOS ####[place] [address]#### TRANSF ####[place] [address] Lymphocytes 1.50 10*3/uL Normal 1.00-4.00 [facility] Comment on above: Performed By: #### P T, PTT, AMYL, CMP, LIPA, PHOS ####[place] [address]#### TRANSF ####[place] [address] Lymphocytes/100 leukocytes 26.2 % Normal [facility] Comment on above: Performed By: #### P T, PTT, AMYL, CMP, LIPA, PHOS ####[place] [address]#### TRANSF ####[place] [address] MCH 27.3 pG Normal 26.0-34.0 [facility] Comment on above: Performed By: #### P T, PTT, AMYL, CMP, LIPA, PHOS ####[place] [address]#### TRANSF ####[place] [address] MCHC mass conc (RBC) 31.8 g/dL Normal 30.5-36.0 [facility] Comment on above: Performed By: #### P T, PTT, AMYL, CMP, LIPA, PHOS ####[place] [address]#### TRANSF ####[place] [address] MCV 85.7 fL Normal 80.0-100.0 [facility] Comment on above: Performed By: #### P T, PTT, AMYL, CMP, LIPA, PHOS ####[place] [address]#### TRANSF ####[place] [address] Monocytes/100 leukocytes 7.5 % Normal [facility] Comment on above: Performed By: #### P T, PTT, AMYL, CMP, LIPA, PHOS ####[address]#### TRANSF ####[address] Av[place] [phone] Neutrophils/100 WBC Auto (Bld) 63.0 % Normal [facility] Comment on above: Performed By: #### P T, PTT, AMYL, CMP, LIPA, PHOS ####[place] [address]#### TRANSF ####[place] [phone] Platelet mean volume (PMV) 9.7 fL Normal 9.0-12.7 [facility] Comment on above: Performed By: #### P T, PTT, AMYL, CMP, LIPA, PHOS ####[place] [address]#### TRANSF ####[place] [phone] Platelets 518 10*3/uL High 150-400 [facility] Comment on above: Performed By: #### P T, PTT, AMYL, CMP, LIPA, PHOS ####[place] [address]#### TRANSF ####[place] [address] WBC (Leukocytes) 5.72 10*3/uL Normal 3.70-11.00 [facility] Comment on above: Performed By: #### P T, PTT, AMYL, CMP, LIPA, PHOS ####[place] [address]#### TRANSF ####[place] [address] Magnesiumon 08-28-2017 Magnesium 2.2 mg/dL Normal 1.7-2.6 [facility] Comment on above: Performed By: #### P T, PTT, AMYL, CMP, LIPA, PHOS ####[address]#### TRANSF ####[address] [place] [phone] NURSING PROGon 08-28-2017 NURSING PROG HNO ID: [id number] thor: Pramod (Rn) MOUSTAPHA Mckennaervice: (none)Author Type: Registered NurseType: Nursing Progress NoteFiled: 08/28/2017 5:07 PMNote Text: Nursing Progress NotePatient Name: Rocio HayesN: [id number] Location: [place] [address]/[id number] ____Daily Note: 08/28/17 0840 (late entry)- Patient [...] note was completed by: Pramod Mckenna RN [facility] PROGRESSon 08-28-2017 PROGRESS HNO ID: [id number] thor: Michael Cedillo) AugustinService: General SurgeryAuthor Type: PhysicianType: Progress NotesFiled: 08/28/2017 11:12 AMNote Text:PROGRESS NOTES - SURGICAL SERVICESPATIENT NAME: Rocio Boudreaux: [id number] HISTORY OF PRESENT ILLNESS:No acute events overnight. [...] his diet to a low residue dietDC planningMichael Jolley MD, MPH, FACSGeneral/Trauma/HPB SurgeryPager: [phone] Cell: [phone] 2017 [facility] PT EDon 08-28-2017 PT ED HNO ID: [id number] thor: Yohana (Diet-T) MarichuyanService: Nutrition TherapyAuthor Type: Dietetic TechnicianType: Patient EducationFiled: 08/28/2017 1:24 PMNote Text:NUTRITION PATIENT EDUCATIONTOPIC: Survival Skills: DietPATIENT NAME: Rocio HayesN: [id number] DATE: August 28, 2017Diagnosis: ADULT: Duodenal ObstructionREADINESS [...] Type: Routine Care/15 min 2 triston Mackey-tPager: [phone] 20171:22 PM Normal [facility] Phosphoruson 08-28-2017 Phosphate 3.4 mg/dL Normal 2.5-4.5 [facility] Comment on above: Performed By: #### P T, PTT, AMYL, CMP, LIPA, PHOS ####[facility] [place] [phone]#### TRANSF ####[facility] [address] [place], [place] [phone] THERAPY NTon 08-28-2017 THERAPY NT HNO ID: [id number] thor: Saima Miranda (Cota)ervice: Occupational TherapyAuthor Type: Occupational Therapy AssistantType: Therapy (PT/OT/Speech/Resp)Filed: 08/28/2017 3:09 PMNote Text: -Attestation signed by Nolvia Gamez) Logar at 08/28/2017 3:48 PMI reviewed and agree with the documentation corresponding to this therapyvisit.SIGNATURE: Nolvia Reilly OTR/LDATE: August 28, 2017TIME: 3:48 PM Oc cupational Therapy TreatmentSERVICE DATE: 08/28/2017SERVICE TIME: 1420 to 1500ROOM: [place] [address] ( OPERATING ROOM)Recommended Discharge Disposition: Subacute/SNFRecommended Discharge Disposition Comments: (Pt hopes to continue therapyin SNF in [place])Anticipated Discharge Needs: Supervision at HomePhysical Assist at Home for:Cleaning;Laundry;Meals;S hopping;Transportation;Ambul ationSupervision at Home due to: Other: See Comment (recent surgery)Recommended Discharge Equipment: Elastic Shoe Laces;Grab Bars-Shower;HandHeld Shower;Long Handled Shoe Horn;Long Handled Sponge;WheeledWalker;Bunch Breaker ;Sock Aide;Shower ChairOT Recommendations to Nursing: OOB [...] PatientTREATMENT INTERVENTIONS:Therapy Diagnosis: Reduced mobility-otherInterventions Provided: Self Jail Management (16690);TherapeuticActivity (83833)Therapeutic Activity (39431) Treatment Minutes: 101 unitSkilled Intervention(s): Instructed patient in log roll techniqueInstruction in sit to and from stand technique with proper hand placementand body positioning at edge of bed/chairInstruction of safe transport of items from room to room with use of Okeyko the ww.Self Jail Management (15990) Treatment Minutes: 302 unitsSkilled Intervention(s): Provided instruction, cuing and facilitation forlower body dressing .Instructed pt on use of frog shaker to zee/doff pants, underwear, shoes inorder to [...] evaluation/treatment.SIGNATU RE: Saima TRACY Spencer PATIENT NAME: Rocio FrischDATE: August 28, 2017 : 3:04 PM PAGER: [phone] [facility] THERAPY NT HNO ID: [id number] thor: Saima Villa) BradenpasService: Occupational TherapyAuthor Type: Occupational Therapy AssistantType: Therapy (PT/OT/Speech/Resp)Filed: 08/28/2017 12:27 PMNote Text: -Attestation signed by Nolvia Reilly at 08/28/2017 1:15 PMI reviewed and agree with the documentation corresponding to this therapyvisit.SIGNATURE: WENDY Cade/LDATE: August 28, 2017TIME: 1:15 PM OC CUPATIONAL THERAPY MISSED VISITSERVICE DATE: 08/28/2017SERVICE TIME: 1148 to 1148ROOM: [place] [address] ( OPERATING ROOM)Attempted Treatment. Patient not seen due to Eating.Will attempt again asschedule permits.SIGNATURE: TRACY Dumont PATIENT NAME: Rocio JacksonDATE: August 28, 2017 : 12:27 PM PAGER/CONTACT #:[phone] [facility] BRIEF OP NOTon 08-27-2017 BRIEF OP NOT HNO ID: [id number] thor: Juan Lawtone: RadiologyAuthor Type: PhysicianType: Brief Op NoteFiled: 08/27/2017 11:09 AMNote Text:OPERATIVE/PROCEDURE REPORTLOG ID: [id number]/Procedure Date: 08/19/2017Incision/Procedure Start Time:Incision Close/Procedure End Time:Surgeon(s)/Proceduralis t(s) and Theology Professor(s):Surgeon(s) and Role: * Vanessa Finley Additional StaffProcedure(s):Patient [...] assistance.SIGNATURE: Juan Aguero MD PATIENT NAME: Rocio VenturaDATE: August 27, 2017 : 11:02 AM PAGER/CONTACT #: [phone] Normal [facility] Basic Metabolic Panlon 08-27 Anion gap 9 mmol/L Normal 9-18 [facility] Comment on above: Performed By: #### P T, PTT, AMYL, CMP, LIPA, PHOS ####[address] [phone]#### TRANSF ####[facility] [address] [place], [place] [phone] Calcium 8.5 mg/dL Normal 8.5-10.5 [facility] Comment on above: Performed By: #### P T, PTT, AMYL, CMP, LIPA, PHOS ####[address] [phone]#### TRANSF ####[place] [phone] Chloride 102 mmol/L Normal 98-110 [facility] Comment on above: Performed By: #### P T, PTT, AMYL, CMP, LIPA, PHOS ####[place] [address]#### TRANSF ####[place] [address] CO2 27 mmol/L Normal 23-32 [facility] Comment on above: Performed By: #### P T, PTT, AMYL, CMP, LIPA, PHOS ####[place] [address]#### TRANSF ####[place] [address] Creatinine 0.66 mg/dL Low 0.70-1.40 [facility] Comment on above: Performed By: #### P T, PTT, AMYL, CMP, LIPA, PHOS ####[place] [address]#### TRANSF ####[place] [address] eGFR (non-black) mL/min/{1.73_m2} Normal >60 [facility] Comment on above: Performed By: #### P T, PTT, AMYL, CMP, LIPA, PHOS ####[place] [address]#### TRANSF ####[place] [address] Glucose mass conc 105 mg/dL High 65-100 [facility] Comment on above: Performed By: #### P T, PTT, AMYL, CMP, LIPA, PHOS ####[place] [address]#### TRANSF ####[address], [place] [phone] Potassium molar conc 4.4 mmol/L Normal 3.5-5.0 [facility] Comment on above: Performed By: #### P T, PTT, AMYL, CMP, LIPA, PHOS ####[place] [address]#### TRANSF ####[place] [address] Sodium 138 mmol/L Normal 135-146 [facility] Comment on above: Performed By: #### P T, PTT, AMYL, CMP, LIPA, PHOS ####[place] [address]#### TRANSF ####[place] [phone] Urea nitrogen 11 mg/dL Normal 10-25 [facility] Comment on above: Performed By: #### P T, PTT, AMYL, CMP, LIPA, PHOS ####[place] [address]#### TRANSF ####[place] [phone] CASE MANAGEMon 08-27-2017 CASE MANAGEM HNO ID: [id number] thor: Catherine Arreola) Leeann, RNService: Case ManagementAuthor Type: Registered NurseType: Care Mgt Progress NoteFiled: 08/27/2017 4:26 PMNote Text:CARE MANAGEMENT PROGRESS NOTESERVICE DATE: 08/27/2017SERVICE TIME: 4:15 pm LOS: 14 daysMet with patient and sister Briana at bedside. Due to patient's currentclinical status, and the fact that he is single and lives alone, thepatient has elected to pursue placement at [facility] [place] [facility]. Updates sent to [facility]. CM will continue to followplan of care to assist with discharge planning.SIGNATURE: Catherine Bradshaw RN PATIENT NAME: Rocio Sibley: August 27, 2017 : 4:18 PM PAGER/CONTACT #: [phone] Normal [facility] CBC and Differentialon 08-27 Abs Baso 0.03 k/uL Normal <0.11 [facility] Comment on above: Performed By: #### P T, PTT, AMYL, CMP, LIPA, PHOS ####[place] [address]#### TRANSF ####[place] [phone] Abs Lamar 0.29 k/uL Normal <0.87 [facility] Comment on above: Performed By: #### P T, PTT, AMYL, CMP, LIPA, PHOS ####[place] [address]#### TRANSF ####[place] [address] Abs Neut 3.08 k/uL Normal 1.45-7.50 [facility] Comment on above: Performed By: #### P T, PTT, AMYL, CMP, LIPA, PHOS ####[place] [address]#### TRANSF ####[place] [address] Basophils/100 WBC Auto (Bld) 0.6 % Normal [facility] Comment on above: Performed By: #### P T, PTT, AMYL, CMP, LIPA, PHOS ####[place] [address]#### TRANSF ####[place] [phone] DTYPE Auto Diff Normal [facility] Comment on above: Performed By: #### P T, PTT, AMYL, CMP, LIPA, PHOS ####[place] [phone]#### TRANSF ####[place] [address] Eosinophils 0.19 10*3/uL Normal <0.46 [facility] Comment on above: Performed By: #### P T, PTT, AMYL, CMP, LIPA, PHOS ####[place] [address]#### TRANSF ####[place] [address] Eosinophils/100 leukocytes 3.7 % Normal [facility] Comment on above: Performed By: #### P T, PTT, AMYL, CMP, LIPA, PHOS ####[place] [address]#### TRANSF ####[place] [address] Erythrocyte distribution width Auto Ratio (RBC) 15.6 % High 11.5-15.0 [facility] Comment on above: Performed By: #### P T, PTT, AMYL, CMP, LIPA, PHOS ####[place] [address]#### TRANSF ####[place] [address] Erythrocytes (RBC) 2.90 10*6/uL Low 4.20-6.00 [facility] Comment on above: Performed By: #### P T, PTT, AMYL, CMP, LIPA, PHOS ####[place] [address]#### TRANSF ####[place] [address] Hematocrit (HCT) 25.1 % Low 39.0-51.0 [facility] Comment on above: Performed By: #### P T, PTT, AMYL, CMP, LIPA, PHOS ####[address]#### TRANSF ####[place] [phone] Hemoglobin mass conc (Bld) 8.0 g/dL Low 13.0-17.0 [facility] Comment on above: Performed By: #### P T, PTT, AMYL, CMP, LIPA, PHOS ####[place] [address]#### TRANSF ####[place] [phone] Lymphocytes 1.56 10*3/uL Normal 1.00-4.00 [facility] Comment on above: Performed By: #### P T, PTT, AMYL, CMP, LIPA, PHOS ####[place] [address]#### TRANSF ####[place] [phone] Lymphocytes/100 leukocytes 30.3 % Normal [facility] Comment on above: Performed By: #### P T, PTT, AMYL, CMP, LIPA, PHOS ####[place] [address]#### TRANSF ####[place] [phone] MCH 27.6 pG Normal 26.0-34.0 [facility] Comment on above: Performed By: #### P T, PTT, AMYL, CMP, LIPA, PHOS ####[place] [address]#### TRANSF ####[place] [phone] MCHC mass conc (RBC) 31.9 g/dL Normal 30.5-36.0 [facility] Comment on above: Performed By: #### P T, PTT, AMYL, CMP, LIPA, PHOS ####[place] [address]#### TRANSF ####[place] [phone] MCV 86.6 fL Normal 80.0-100.0 [facility] Comment on above: Performed By: #### P T, PTT, AMYL, CMP, LIPA, PHOS ####[place] [address]#### TRANSF ####[place] [phone] Monocytes/100 leukocytes 5.6 % Normal [facility] Comment on above: Performed By: #### P T, PTT, AMYL, CMP, LIPA, PHOS ####[place] [address]#### TRANSF ####[place] [phone] Neutrophils/100 WBC Auto (Bld) 59.8 % Normal [facility] Comment on above: Performed By: #### P T, PTT, AMYL, CMP, LIPA, PHOS ####[place] [address]#### TRANSF ####[place] [phone] Platelet mean volume (PMV) 9.2 fL Normal 9.0-12.7 [facility] Comment on above: Performed By: #### P T, PTT, AMYL, CMP, LIPA, PHOS ####[place] [address]#### TRANSF ####[place] [phone] Platelets 481 10*3/uL High 150-400 [facility] Comment on above: Performed By: #### P T, PTT, AMYL, CMP, LIPA, PHOS ####[place] [address] [place], [place] [phone]#### TRANSF ####[facility] [place], [place] [phone] WBC (Leukocytes) 5.15 10*3/uL Normal 3.70-11.00 [facility] Comment on above: Performed By: #### P T, PTT, AMYL, CMP, LIPA, PHOS ####[place] [address] [place], [place] [phone]#### TRANSF ####[facility] [place], [place] [phone] IR EXCHANGE CATH BILI DRAINo n 08-27-2017 [...] 2 % lidocaineANTIBIOTICS: ZosynAntibiotic infusion start time: 0945CONTRAST DOSE: 50 cc of OMNIPAQUE 350 was injected into the biliary system during the procedure.IMAGE GUIDANCE: Fluoroscopic guidance.FLUOROSCOPIC RADIATION SUMMARY:Plane A, Air Kerma: 2083.0 mGyDose Area Product (DAP): 671991.0 mGy*iy6Pxpami Time: 14:00 min:secRadiation dose exceed 5 Gy: NoIf radiation dose exceeded 5 Gy, was counseling and instructional brochure provided: N/ATECHNIQUE: The patient was prepped and draped using all elements of maximal sterile barrier technique (cap, mask, sterile gown, sterile gloves, a large sterile sheet, hand hygiene and cutaneous antisepsis)After local anesthesia, the indwelling 10 Albanian right internal/external drain was removed over a wire and a long sheath was placed. Cholangiogram was performed. Using a KMP catheter and Glidewire, access was obtained into the first part of the duodenum and then into the third part of the duodenum and contrast injection was performed to assess for duodenal stricture. Over an Amplatz wire, a 12 Albanian right internal/external drain was placed with the [...] of Removed Specimens: noneATTENDING RADIOLOGIST: Juan Aguero M.D.PRODUCTION LINE SOLDERER: NoneThe procedure was performed by the: attending radiologist, without an licensed investment sales assistant.The attending radiologist performed the following procedural [...] changed. Please maintain this tube to external bag.Medical Historian: NII Transcribe Date/Time: Aug 27 2017 2:25PDictated by : JUAN AGUERO MDThis examination was interpreted and the report reviewed and electronically signed by: JUAN AGUERO MD on Aug 27 2017 4:27PM EST Normal [facility] Magnesiumon 08-27-2017 Magnesium 2.2 mg/dL Normal 1.7-2.6 [facility] Comment on above: Performed By: #### P T, PTT, AMYL, CMP, LIPA, PHOS ####[facility] [place], [place] [phone]#### TRANSF ####[facility] [address] [place], [place] [phone] PROGRESSon 08-27-2017 PROGRESS HNO ID: [id number] thor: ASHLEY Lesterervice: General SurgeryAuthor Type: ResidentType: Progress NotesFiled: 08/27/2017 8:05 AMNote Text:PROGRESS NOTES - SURGICAL SERVICESPATIENT NAME: Rocio JacksonPETRONA: [id number] HISTORY OF PRESENT ILLNESS:No acute events overnight. [...] Carolina Thao MD8:02 AM August 27, 2017PAGER: [phone] [facility] PT EDon 08-27-2017 PT ED HNO ID: [id number] thor: Lee Ann (Rn) MOUSTAPHA Drakeervice: RadiologyAuthor Type: Registered NurseType: Patient EducationFiled: 08/27/2017 10:43 AMNote Text:PATIENT EDUCATION TOPIC: PROCEDURE / SURGERY: Procedure/Surgery:cholangiog shanon and biliary tube exchange 12frPATIENT NAME: Rocio Boudreaux: [id number] LOCATION: [place] [address]/[id number] S TO LEARNCOGNITIVE ABILITY: Alert and orientedMOTIVATION [...] NoneElectronically Signed By: Lee Ann Drake RN [facility] Phosphoruson 08-27-2017 Phosphate 4.0 mg/dL Normal 2.5-4.5 [facility] Comment on above: Performed By: #### P T, PTT, AMYL, CMP, LIPA, PHOS ####[facility] [place] [phone]#### TRANSF ####[facility] [address] [place] [phone] THERAPY NTon 08-27-2017 THERAPY NT HNO ID: [id number] thor: Mandi Bowmanervice: Occupational TherapyAuthor Type: Occupational TherapistType: Therapy (PT/OT/Speech/Resp)Filed: 08/27/2017 3:16 PMNote Text:OCCUPATIONAL THERAPY MISSED VISITSERVICE DATE: 08/27/2017SERVICE TIME: 1500 to 1500ROOM: [place] [address] ( OPERATING ROOM)Attempted Treatment. Patient not seen due to Other: See Comment(Cholangiogram Today).SIGNATURE: WENDY Arceo/Timo PATIENT NAME: Rociomarisa JacksonDATE: August 27, 2017 : 3:16 PM PAGER/CONTACT #:[phone] [facility] THERAPY NT HNO ID: [id number] thor: Adela Lopezvice: Physical TherapyAuthor Type: Physical Therapy AssistantType: Therapy (PT/OT/Speech/Resp)Filed: 08/27/2017 11:44 AMNote Text: -Attestation signed by Gonzales (Pt) Nola at 08/27/2017 11:44 AMI reviewed and agree with the assessment as documented above.SIGNATURE: Gonzales Vaca, PTDATE: August 27, 2017TIME: 11:44 AM PH YSICAL THERAPY MISSED VISITSERVICE DATE: 08/27/2017SERVICE TIME: 1110 to 1110ROOM: [place] [address] ( OPERATING ROOM)Attempted Treatment. Patient not seen due to Test/Procedure ( pt havingcholangiogram this a.m.).SIGNATURE: Adela Leong PTA PATIENT NAME: Rocio VizcarraTE: August 27, 2017 : 11:44 AM PAGER/CONTACT #: [phone] Normal [facility] Basic Metabolic Panlon 08-26 Anion gap 11 mmol/L Normal -18 [facility] Comment on above: Performed By: #### P T, PTT, AMYL, CMP, LIPA, PHOS ####[facility] [place], [place] [phone]#### TRANSF ####[facility] [place], [place] [phone] Calcium 8.7 mg/dL Normal 8.5-10.5 [facility] Comment on above: Performed By: #### P T, PTT, AMYL, CMP, LIPA, PHOS ####[place] [address]#### TRANSF ####[place] [address] Chloride 101 mmol/L Normal 98-110 [facility] Comment on above: Performed By: #### P T, PTT, AMYL, CMP, LIPA, PHOS ####[place] [address]#### TRANSF ####[place] [phone] CO2 26 mmol/L Normal 23-32 [facility] Comment on above: Performed By: #### P T, PTT, AMYL, CMP, LIPA, PHOS ####[place] [address]#### TRANSF ####[place] [address] Creatinine 0.58 mg/dL Low 0.70-1.40 [facility] Comment on above: Performed By: #### P T, PTT, AMYL, CMP, LIPA, PHOS ####[place] [address]#### TRANSF ####[place] [address] eGFR (non-black) mL/min/{1.73_m2} Normal >60 [facility] Comment on above: Performed By: #### P T, PTT, AMYL, CMP, LIPA, PHOS ####[place] [address]#### TRANSF ####[place] [address] Glucose mass conc 124 mg/dL High 65-100 [facility] Comment on above: Performed By: #### P T, PTT, AMYL, CMP, LIPA, PHOS ####[place] [address]#### TRANSF ####[place] [address] Potassium molar conc 4.5 mmol/L Normal 3.5-5.0 [facility] Comment on above: Performed By: #### P T, PTT, AMYL, CMP, LIPA, PHOS ####[place] [address]#### TRANSF ####[place] [address] Sodium 138 mmol/L Normal 135-146 [facility] Comment on above: Performed By: #### P T, PTT, AMYL, CMP, LIPA, PHOS ####[place] [address]#### TRANSF ####[place] [address] Urea nitrogen 11 mg/dL Normal 10-25 [facility] Comment on above: Performed By: #### P T, PTT, AMYL, CMP, LIPA, PHOS ####[place] [address]#### TRANSF ####[place] [address] CBC and Differentialon 08-26 Abs Baso <0.03 Normal <0.11 [facility] Comment on above: Performed By: #### P T, PTT, AMYL, CMP, LIPA, PHOS ####[place] [address]#### TRANSF ####[place] [address] Abs Lamar 0.57 k/uL Normal <0.87 [facility] Comment on above: Performed By: #### P T, PTT, AMYL, CMP, LIPA, PHOS ####[place] [address]#### TRANSF ####[place] [address] Abs Neut 4.61 k/uL Normal 1.45-7.50 [facility] Comment on above: Performed By: #### P T, PTT, AMYL, CMP, LIPA, PHOS ####[place] [address]#### TRANSF ####[place] [address] Basophils/100 WBC Auto (Bld) 0.1 % Normal [facility] Comment on above: Performed By: #### P T, PTT, AMYL, CMP, LIPA, PHOS ####[place] [address]#### TRANSF ####[place] [address] DTYPE Auto Diff Normal [facility] Comment on above: Performed By: #### P T, PTT, AMYL, CMP, LIPA, PHOS ####[place] [address]#### TRANSF ####[place] [address] Eosinophils 0.20 10*3/uL Normal <0.46 [facility] Comment on above: Performed By: #### P T, PTT, AMYL, CMP, LIPA, PHOS ####[place] [address]#### TRANSF ####[place] [address] Eosinophils/100 leukocytes 2.9 % Normal [facility] Comment on above: Performed By: #### P T, PTT, AMYL, CMP, LIPA, PHOS ####[place] [address]#### TRANSF ####[place] [address] Erythrocyte distribution width Auto Ratio (RBC) 16.0 % High 11.5-15.0 [facility] Comment on above: Performed By: #### P T, PTT, AMYL, CMP, LIPA, PHOS ####[place] [address]#### TRANSF ####[place] [phone] Erythrocytes (RBC) 3.00 10*6/uL Low 4.20-6.00 [facility] Comment on above: Performed By: #### P T, PTT, AMYL, CMP, LIPA, PHOS ####[place] [address]#### TRANSF ####[place] [address] Hematocrit (HCT) 26.0 % Low 39.0-51.0 [facility] Comment on above: Performed By: #### P T, PTT, AMYL, CMP, LIPA, PHOS ####[place] [address]#### TRANSF ####[place] [address] Hemoglobin mass conc (Bld) 8.3 g/dL Low 13.0-17.0 [facility] Comment on above: Performed By: #### P T, PTT, AMYL, CMP, LIPA, PHOS ####[place] [address]#### TRANSF ####[place] [phone] Lymphocytes 1.44 10*3/uL Normal 1.00-4.00 [facility] Comment on above: Performed By: #### P T, PTT, AMYL, CMP, LIPA, PHOS ####[place] [address]#### TRANSF ####[place] [phone] Lymphocytes/100 leukocytes 21.1 % Normal [facility] Comment on above: Performed By: #### P T, PTT, AMYL, CMP, LIPA, PHOS ####[place] [address]#### TRANSF ####[place] [address] MCH 27.7 pG Normal 26.0-34.0 [facility] Comment on above: Performed By: #### P T, PTT, AMYL, CMP, LIPA, PHOS ####[place] [address]#### TRANSF ####[place] [address] MCHC mass conc (RBC) 31.9 g/dL Normal 30.5-36.0 [facility] Comment on above: Performed By: #### P T, PTT, AMYL, CMP, LIPA, PHOS ####[place] [address]#### TRANSF ####[place] [address] MCV 86.7 fL Normal 80.0-100.0 [facility] Comment on above: Performed By: #### P T, PTT, AMYL, CMP, LIPA, PHOS ####[place] [address]#### TRANSF ####[place] [phone] Monocytes/100 leukocytes 8.3 % Normal [facility] Comment on above: Performed By: #### P T, PTT, AMYL, CMP, LIPA, PHOS ####[place] [address]#### TRANSF ####[place] [phone] Neutrophils/100 WBC Auto (Bld) 67.6 % Normal [facility] Comment on above: Performed By: #### P T, PTT, AMYL, CMP, LIPA, PHOS ####[place] [address]#### TRANSF ####[place] [phone] Platelet mean volume (PMV) 9.5 fL Normal 9.0-12.7 [facility] Comment on above: Performed By: #### P T, PTT, AMYL, CMP, LIPA, PHOS ####[place] [address]#### TRANSF ####[place] [phone] Platelets 481 10*3/uL High 150-400 [facility] Comment on above: Performed By: #### P T, PTT, AMYL, CMP, LIPA, PHOS ####[place] [address]#### TRANSF ####[place] [phone] WBC (Leukocytes) 6.83 10*3/uL Normal 3.70-11.00 [facility] Comment on above: Performed By: #### P T, PTT, AMYL, CMP, LIPA, PHOS ####[place] [address]#### TRANSF ####[place] [phone] Magnesiumon 08-26-2017 Magnesium 2.3 mg/dL Normal 1.7-2.6 [facility] Comment on above: Performed By: #### P T, PTT, AMYL, CMP, LIPA, PHOS ####[facility] [place], [place] [phone]#### TRANSF ####[facility] [place], [place] [phone] NURSING PROGon 08-26-2017 NURSING PROG HNO ID: [id number] thor: Saima Kramer (Rn) Debra, RNService: (none)Author Type: Registered NurseType: Nursing Progress NoteFiled: 08/26/2017 7:20 PMNote Text: Nursing Progress NotePatient Name: Rocio JacksonPETRONA: [id number] Location: [place] [address]/[id number] ____Daily Note:IR called and stated that they will not be able to do procedureon pt this evening. Text page to gen surg to make aware.1900: Spoke w/ [facility] - full liquid diet ordered and NPO after midnight.This note was completed by: Saima Richardson RN Normal [facility] PROGRESSon 08-26-2017 PROGRESS HNO ID: [id number] thor: Michael Cedillo) AugustinService: General SurgeryAuthor Type: PhysicianType: Progress NotesFiled: 08/26/2017 8:48 PMNote Text:PROGRESS NOTES - SURGICAL SERVICESPATIENT NAME: Rocio JacksonPETRONA: [id number] HISTORY OF PRESENT ILLNESS:No acute events overnight. [...] tube cholangiogramToms MD Froilan, MPH, FACSGeneral/Trauma/HPB SurgeryPager: [phone] Cell: [phone] 2017 Normal [facility] Phosphoruson 08-26-2017 Phosphate 3.4 mg/dL Normal 2.5-4.5 [facility] Comment on above: Performed By: #### P T, PTT, AMYL, CMP, LIPA, PHOS ####[facility] [place], [place] [phone]#### TRANSF ####[facility] [address] [place], [place] [phone] ALLIED HEALTHon 08-25-2017 ALLIED HEALTH HNO ID: [id number] thor: Angelita Smith (Chaplain): Spiritual CareAuthor Type: ChaplainType: Allied HealthFiled: 08/25/2017 10:39 AMNote Text:SPIRITUAL CARE PROGRESS NOTESERVICE DATE: 08/25/2017SERVICE TIME: 10:40amSaw pt on PK3C per Spiritual Care referral. Pt's gnosticism is listed as None in his EMR. [...] contact the Spiritual Care Department: Please call [phone].SIGNATURE: Chaplain Tasia PATIENT NAME: Rociomarisa TorresschDATE: August 25, 2017 : 10:38 AM PAGER/CONTACT #: [phone] Normal [facility] Basic Metabolic Panlon 08-25 Anion gap 11 mmol/L Normal 9-18 [facility] Comment on above: Performed By: #### P T, PTT, AMYL, CMP, LIPA, PHOS ####[place] [address]#### TRANSF ####[place] [address] Calcium 8.4 mg/dL Low 8.5-10.5 [facility] Comment on above: Performed By: #### P T, PTT, AMYL, CMP, LIPA, PHOS ####[place] [address]#### TRANSF ####[place] [address] Chloride 101 mmol/L Normal 98-110 [facility] Comment on above: Performed By: #### P T, PTT, AMYL, CMP, LIPA, PHOS ####[place] [address]#### TRANSF ####[place] [address] CO2 26 mmol/L Normal 23-32 [facility] Comment on above: Performed By: #### P T, PTT, AMYL, CMP, LIPA, PHOS ####[place] [address]#### TRANSF ####[place] [address] Creatinine 0.62 mg/dL Low 0.70-1.40 [facility] Comment on above: Performed By: #### P T, PTT, AMYL, CMP, LIPA, PHOS ####[place] [address]#### TRANSF ####[place] [address] [phone] eGFR (non-black) mL/min/{1.73_m2} Normal >60 [facility] Comment on above: Performed By: #### P T, PTT, AMYL, CMP, LIPA, PHOS ####[place] [address]2456[address]#### TRANSF ####[place] [phone] Glucose mass conc 118 mg/dL High 65-100 [facility] Comment on above: Performed By: #### P T, PTT, AMYL, CMP, LIPA, PHOS ####[place] [address]#### TRANSF ####[place] [address] Potassium molar conc 4.5 mmol/L Normal 3.5-5.0 [facility] Comment on above: Performed By: #### P T, PTT, AMYL, CMP, LIPA, PHOS ####[place] [address]#### TRANSF ####[place] [address] Sodium 138 mmol/L Normal 135-146 [facility] Comment on above: Performed By: #### P T, PTT, AMYL, CMP, LIPA, PHOS ####[address]#### TRANSF ####[place] [address] Urea nitrogen 10 mg/dL Normal 10-25 [facility] Comment on above: Performed By: #### P T, PTT, AMYL, CMP, LIPA, PHOS ####[place] [address]#### TRANSF ####[place] [phone] CASE MANAGEMon 08-25-2017 CASE MANAGEM HNO ID: [id number] thor: Alexandrea (Kevin) Thom RNService: Care ManagementAuthor Type: Registered NurseType: Care Mgt Progress NoteFiled: 08/25/2017 12:06 PMNote Text:MULTIDISCIPLINARY ROUNDSSERVICE DATE: 08/25/2017 ADMISSION DATE: 08/13/2017SERVICE TIME: 12:03 PM ANTICIPATED D/C DATE: 2-3 daysProblem List:ACTIVE PROBLEM LISTDuodenal ObstructionSevere Protein-Calorie Malnutrition (Hcc)Attendees Present at Rounds:Pantry Goods Worker: Chantelleurse Plant Custodian/Theology Professor Nurse Plant Custodian: Taylorocial Worker: Roderick Nurse: Yohannes Discussed on Rounds:DietDischarge NeedsPlan of CareAnticipated Discharge Disposition:Home with Home Health Care vs SNFper discussion with Gerri Espinoza CNP.plan for Cholangiogram tomorrow.Last Vitals: BP 113/66 Pulse 72 Temp (Src) 98.2 (Oral) Resp 16 Ht5' 8 (1.73m) Wt 192 lb (87.1kg) SpO2 98% BMI 29.20 kg/(m2).Pt is accepted at [facility] in [place].Pt also has been accepted by [facility].Nursing: Fluid/Electrolyte Goal Target Achievement Date: 08/26/17Mobility Goal Target Achievement Date: 08/26/17Pain Goal Target Achievement Date: 08/26/17DOCUMENTED BY: lAexandrea Tomas RN PATIENT NAME: Rocio TorresschDATE: August 25, 2017 : 12:03 PM CSN: [id number] Normal [facility] CBC and Differentialon 08-25 Abs Baso <0.03 Normal <0.11 [facility] Comment on above: Performed By: #### P T, PTT, AMYL, CMP, LIPA, PHOS ####[facility] [place], [place] [phone]#### TRANSF ####[facility] [address] [place], [place] [phone] Abs Lamar 0.46 k/uL Normal <0.87 [facility] Comment on above: Performed By: #### P T, PTT, AMYL, CMP, LIPA, PHOS ####[place] [address]#### TRANSF ####[address] Av[address] [place] [phone] Abs Neut 3.52 k/uL Normal 1.45-7.50 [facility] Comment on above: Performed By: #### P T, PTT, AMYL, CMP, LIPA, PHOS ####[place] [address]#### TRANSF ####[place] [address] [address] [place] [phone] Basophils/100 WBC Auto (Bld) 0.4 % [facility] Comment on above: Performed By: #### P T, PTT, AMYL, CMP, LIPA, PHOS ####[place] [address]#### TRANSF ####[place] [address] DTYPE Auto Diff [facility] Comment on above: Performed By: #### P T, PTT, AMYL, CMP, LIPA, PHOS ####[place] [address]#### TRANSF ####[place] [phone] Eosinophils 0.21 10*3/uL Normal <0.46 [facility] Comment on above: Performed By: #### P T, PTT, AMYL, CMP, LIPA, PHOS ####[place] [address]#### TRANSF ####[place] [address] Eosinophils/100 leukocytes 3.7 % Normal [facility] Comment on above: Performed By: #### P T, PTT, AMYL, CMP, LIPA, PHOS ####[place] [address]#### TRANSF ####[place] [phone] Erythrocyte distribution width Auto Ratio (RBC) 15.8 % High 11.5-15.0 [facility] Comment on above: Performed By: #### P T, PTT, AMYL, CMP, LIPA, PHOS ####[place] [address]#### TRANSF ####[place] [address] Erythrocytes (RBC) 2.91 10*6/uL Low 4.20-6.00 [facility] Comment on above: Performed By: #### P T, PTT, AMYL, CMP, LIPA, PHOS ####[place] [address]#### TRANSF ####[place] [address] Hematocrit (HCT) 25.6 % Low 39.0-51.0 [facility] Comment on above: Performed By: #### P T, PTT, AMYL, CMP, LIPA, PHOS ####[place] [address]#### TRANSF ####[place] [phone] Hemoglobin mass conc (Bld) 8.0 g/dL Low 13.0-17.0 [facility] Comment on above: Performed By: #### P T, PTT, AMYL, CMP, LIPA, PHOS ####[place] [address]#### TRANSF ####[place] [address] Lymphocytes 1.45 10*3/uL Normal 1.00-4.00 [facility] Comment on above: Performed By: #### P T, PTT, AMYL, CMP, LIPA, PHOS ####[place] [address]#### TRANSF ####[place] [address] Lymphocytes/100 leukocytes 25.6 % Normal [facility] Comment on above: Performed By: #### P T, PTT, AMYL, CMP, LIPA, PHOS ####[place] [address]#### TRANSF ####[place] [address] MCH 27.5 pG Normal 26.0-34.0 [facility] Comment on above: Performed By: #### P T, PTT, AMYL, CMP, LIPA, PHOS ####[place] [address]#### TRANSF ####[place] [address] MCHC mass conc (RBC) 31.3 g/dL Normal 30.5-36.0 [facility] Comment on above: Performed By: #### P T, PTT, AMYL, CMP, LIPA, PHOS ####[place] [address]#### TRANSF ####[place] [address] MCV 88.0 fL Normal 80.0-100.0 [facility] Comment on above: Performed By: #### P T, PTT, AMYL, CMP, LIPA, PHOS ####[place] [address]#### TRANSF ####[address] [place] [phone] Monocytes/100 leukocytes 8.1 % Normal [facility] Comment on above: Performed By: #### P T, PTT, AMYL, CMP, LIPA, PHOS ####[address]#### TRANSF ####[place] [phone] Neutrophils/100 WBC Auto (Bld) 62.2 % Normal [facility] Comment on above: Performed By: #### P T, PTT, AMYL, CMP, LIPA, PHOS ####[place] [address]#### TRANSF ####[place] [phone] Platelet mean volume (PMV) 10.1 fL Normal 9.0-12.7 [facility] Comment on above: Performed By: #### P T, PTT, AMYL, CMP, LIPA, PHOS ####[place] [address]#### TRANSF ####[place] [phone] Platelets 444 10*3/uL High 150-400 [facility] Comment on above: Performed By: #### P T, PTT, AMYL, CMP, LIPA, PHOS ####[place] [address]#### TRANSF ####[place] [phone] WBC (Leukocytes) 5.66 10*3/uL Normal 3.70-11.00 [facility] Comment on above: Performed By: #### P T, PTT, AMYL, CMP, LIPA, PHOS ####[place] [address]#### TRANSF ####[facility] [place], [place] [phone] Magnesiumon 08-25-2017 Magnesium 2.3 mg/dL Normal 1.7-2.6 [facility] Comment on above: Performed By: #### P T, PTT, AMYL, CMP, LIPA, PHOS ####[facility] [place], [place] [phone]#### TRANSF ####[facility] [place], [place] [phone] NURSING PROGon 08-25-2017 NURSING PROG HNO ID: [id number] thor: Shavonne (Rn) Tabatha, RNService: NursingAuthor Type: Registered NurseType: Nursing Progress NoteFiled: 08/25/2017 2:30 PMNote Text: Nursing Progress NotePatient Name: Rocio JacksonMRN: [id number] Location: [place] [address]/[id number] ____Daily Note:Pt A+Ox3, speech clear, flat affect. Skin pale and slightly jaundiced.NSR with occasional PVC's on quality assurance monitor chassis. Abdomen soft, bowel soundspresent, +Flatus and +BM, [...] was completed by: Shavonne Mays RN Normal [facility] NUTRITIONon 08-25-2017 NUTRITION HNO ID: [id number] thor: Alise Segura) BarsaService: Nutrition TherapyAuthor Type: [...] Weight: 87?kgResting Metabolic Rate: 1661Estimated kilocalorie needs: 0385-1769?kilocalories determined by25-30?kcal/kgEstimated protein needs:113 - ?130?grams determined [...] kg (192 lb) SpO2 97% BMI 29.19 kg/s6Foncbo Labs 659731GJTG 118*BUN 10CREAT 0.62*NA 138K 4.5CHLOR 101CO2 26HB [...] 5,000 Units SUBCUTANEOUS q 8 Hphenol 1 Hodges (CHLORASEPTIC) 1 Hodges MUCOUS MEMBRANE (TOPICAL MOUTH ANDTHROAT) q 2 [...] -- 1350 1860 375 855 Output (ml) 1499 3815 142 1930 629 Net (ml) -4206 -114 500 -6823 226Surgical Incision 08/14/17 0103 Abdomen - Laparoscopy [...] assistance and weekends please page theGroup Pager [phone] [facility] PROGRESSon 08-25-2017 PROGRESS HNO ID: [id number] thor: Michael Cedillo) AugustinService: General SurgeryAuthor Type: PhysicianType: Progress NotesFiled: 08/25/2017 11:42 AMNote Text:GENERAL SURGERY INPATIENT PROGRESS NOTENAME: Rocio JacksonMRN: [id number] 2017 7:52 AMASSESSMENT AND PLAN:Rocio Jackson is [...] kg (192 lb) SpO2 97% BMI 29.19 kg/f9Zklhap: Breathing comfortably on RA, speaking in full sentencesAbdominal examination: Abdomen soft, non-distended, mildly tenderTubes/Drains/Stoma: PTHC drain in place, serosanguineous outputFlatus/Bowel movement: Bowel function +Nausea/Emesis: NegativePain Control: IV dilaudid PO tylenolRenal: UOP adequateAntibiotics: AugmentinPending labs/results: None. Culture grew streptococcus mutansDate 08/23/17 0700 - 08/24/17 0659 08/24/17 07 - 08/25/17 0659Shift 7683-0222 9164-7516 0039-5434 24 Hour Total 7361-6372 8542-63269853-9035 24 Hour TotalINTAKE PO 1080 108 08 2635 PO 600 658 28 6880 Supplements (mL) 480 240 720 Shift Total 1080 720 60 1860OUTPUT Urine 3 101 104 0 0 Void (ml) 100 100 0 0 Urine Incontinence/Not Saved 1 x 1 x Urine Not Saved 3 1 4 Emesis 0 0 Emesis (ml) 0 0 Tubes 625 824 966 0850 300 300 Drain/Tube Output (Drain/Tube 08/15/17 1530 Assessment Right UpperAbdomen) 50 50 0 0 Drain/Tube Output (Drain/Tube 08/19/17 1443 Biliary Right Lateral;LowerQuadrant Abdomen) 625 029 001 2185 300 300 # of BMs Number of BMs 2 x 1 x 1 x 4 x 1 x 1 x Shift Total 625 765 660 1304 300 300Weight (kg) 87.1 87.1 87.1 87.1 [...] Ann Thao MD7:52 AM August 25, 2017PAGER: [phone](After 6pm and weekends please contact Surgery oncall [...] cap Noah Jolley MD, MPH, FACSGeneral/Trauma/HPB SurgeryPager: [phone] Cell: [phone] 2017 Normal [facility] Phosphoruson 08-25-2017 Phosphate 3.0 mg/dL Normal 2.5-4.5 [facility] Comment on above: Performed By: #### P T, PTT, AMYL, CMP, LIPA, PHOS ####[facility] [place] [phone]#### TRANSF ####[facility] [address] [place], [place] [phone] THERAPY NTon 08-25-2017 THERAPY NT HNO ID: [id number] thor: Sujata (Pt) PapcunService: Physical TherapyAuthor Type: Physical TherapistType: Therapy (PT/OT/Speech/Resp)Filed: 08/25/2017 12:18 PMNote Text:Physical Therapy TreatmentSERVICE DATE: 08/25/2017SERVICE TIME: 1143 to 1206ROOM: [place] [address] ( OPERATING ROOM)Recommended Discharge Disposition: Home PTRecommended [...] internal biliary drain placement;cholangiogram planned tomorrow per [facility]. Requires skilled PT for forimprovement of strength [...] Reduced mobility-other;Muscle Weakness (generalized)Interventions Provided: Therapeutic Exercise (25529);Gait Training (11833)Therapeutic Exercise (61479) Treatment Minutes: 121 unitSkilled Intervention(s): Instruction in therapeutic exercise BLE seatedfor strengthening, cues for tempo.Gait Training (66952) Treatment Minutes: 111 unitSkilled Intervention(s): Instruction in [...] RE: Sujata Ohara PT PATIENT NAME: Rocio Sibley: August 25, 2017 : 12:16 PM PAGER/CONTACT #: [phone] [facility] ALLIED HEALTHon 08-24-2017 ALLIED HEALTH HNO ID: [id number] thor: Albert Sutherland: (none)Author Type: (none)Type: Allied HealthFiled: 08/24/2017 6:37 PMNote Text: Radiology Service Progress NotePATIENT NAME: Rocio JacksonMRN: [id number] OF SERVICE: August 24, 2017TIME: 6:37 PMPATIENT IDENTITY VERIFICATION COMPLETED USING TWO (2) METHODS: Patientconfirmed name verbally and ID band matches..PATIENT GENDER DATA: MalePATIENT RELEVANT IMPLANT DATA REVIEWED: Not ApplicableRADIOLOGY DEPARTMENT: CT; Exam(s) Completed: Abdomen/PelvisPERIPHERAL IV DATA: Inpatient: see LDA documentationSIGNED BY: Albert Vaughan 2017 6:37 PM [facility] CASE MANAGEMon 08-24-2017 CASE MANAGEM HNO ID: [id number] thor: Alexandrea (Rn) Thom, RNService: Care ManagementAuthor [...] he feels weeker, he requests SNF in [facility],A list was given to pt.PT OT updates are needed.A Precert is needed.Pt is on Full Liquid dietSIGNATURE: Alexandrea Tomas RN PATIENT NAME: Rocio JacksonDATE: August 24, 2017 : 10:39 AM PAGER/CONTACT #: [phone] Normal [facility] CBC and Differentialon 08-24 Abs Baso <0.03 Normal <0.11 [facility] Comment on above: Performed By: #### P T, PTT, AMYL, CMP, LIPA, PHOS ####[facility] [place], [place] [phone]#### TRANSF ####[facility] [place], [place] [phone] Abs Lamar 0.51 k/uL Normal <0.87 [facility] Comment on above: Performed By: #### P T, PTT, AMYL, CMP, LIPA, PHOS ####[place] [address]#### TRANSF ####[place] [address] Abs Neut 3.42 k/uL Normal 1.45-7.50 [facility] Comment on above: Performed By: #### P T, PTT, AMYL, CMP, LIPA, PHOS ####[place] [address]#### TRANSF ####[place] [address] Basophils/100 WBC Auto (Bld) 0.4 % [facility] Comment on above: Performed By: #### P T, PTT, AMYL, CMP, LIPA, PHOS ####[place] [address]#### TRANSF ####[place] [address]174[address] DTYPE Auto Diff [facility] Comment on above: Performed By: #### P T, PTT, AMYL, CMP, LIPA, PHOS ####[place] [address]#### TRANSF ####[place] [address] Eosinophils 0.17 10*3/uL Normal <0.46 [facility] Comment on above: Performed By: #### P T, PTT, AMYL, CMP, LIPA, PHOS ####[place] [address]#### TRANSF ####[place] [address] Eosinophils/100 leukocytes 3.1 % Normal [facility] Comment on above: Performed By: #### P T, PTT, AMYL, CMP, LIPA, PHOS ####[place] [address]#### TRANSF ####[place] [address] Erythrocyte distribution width Auto Ratio (RBC) 16.1 % High 11.5-15.0 [facility] Comment on above: Performed By: #### P T, PTT, AMYL, CMP, LIPA, PHOS ####[place] [address]#### TRANSF ####[place] [address] Erythrocytes (RBC) 2.87 10*6/uL Low 4.20-6.00 [facility] Comment on above: Performed By: #### P T, PTT, AMYL, CMP, LIPA, PHOS ####[place] [address]#### TRANSF ####[place] [address] Hematocrit (HCT) 25.2 % Low 39.0-51.0 [facility] Comment on above: Performed By: #### P T, PTT, AMYL, CMP, LIPA, PHOS ####[place] [address]#### TRANSF ####[place] [address] Hemoglobin mass conc (Bld) 7.9 g/dL Low 13.0-17.0 [facility] Comment on above: Performed By: #### P T, PTT, AMYL, CMP, LIPA, PHOS ####[place] [address]#### TRANSF ####[place] [address] Lymphocytes 1.36 10*3/uL Normal 1.00-4.00 [facility] Comment on above: Performed By: #### P T, PTT, AMYL, CMP, LIPA, PHOS ####[place] [address]#### TRANSF ####[place] [address] Lymphocytes/100 leukocytes 24.8 % Normal [facility] Comment on above: Performed By: #### P T, PTT, AMYL, CMP, LIPA, PHOS ####[place] [address]#### TRANSF ####[place] [address] MCH 27.5 pG Normal 26.0-34.0 [facility] Comment on above: Performed By: #### P T, PTT, AMYL, CMP, LIPA, PHOS ####[place] [address]#### TRANSF ####[place] [address]53174[address] MCHC mass conc (RBC) 31.3 g/dL Normal 30.5-36.0 [facility] Comment on above: Performed By: #### P T, PTT, AMYL, CMP, LIPA, PHOS ####[place] [address]#### TRANSF ####[place] [address] MCV 87.8 fL Normal 80.0-100.0 [facility] Comment on above: Performed By: #### P T, PTT, AMYL, CMP, LIPA, PHOS ####[place] [address]#### TRANSF ####[place] [address] Monocytes/100 leukocytes 9.3 % Normal [facility] Comment on above: Performed By: #### P T, PTT, AMYL, CMP, LIPA, PHOS ####[place] [address]#### TRANSF ####[place] [phone] Neutrophils/100 WBC Auto (Bld) 62.4 % Normal [facility] Comment on above: Performed By: #### P T, PTT, AMYL, CMP, LIPA, PHOS ####[address]#### TRANSF ####[place] [phone] Platelet mean volume (PMV) 9.6 fL Normal 9.0-12.7 [facility] Comment on above: Performed By: #### P T, PTT, AMYL, CMP, LIPA, PHOS ####[place] [address]#### TRANSF ####[phone] Platelets 393 10*3/uL Normal 150-400 [facility] Comment on above: Performed By: #### P T, PTT, AMYL, CMP, LIPA, PHOS ####[place] [address]#### TRANSF ####[place] [phone] WBC (Leukocytes) 5.48 10*3/uL Normal 3.70-11.00 [facility] Comment on above: Performed By: #### P T, PTT, AMYL, CMP, LIPA, PHOS ####[place] [address]#### TRANSF ####[place] [phone] CT ABD/PEL WO IVCONon 2017 CT ABD/PEL [...] DRAIN PLACEMENT.NEAR COMPLETE RESOLUTION OF PARA/SUBHEPATIC FLUID COLLECTION.Medical Historian: NII Transcribe Date/Time: Aug 25 2017 8:07ADictated by : ASHLEY MORALES MDThis examination was interpreted and the report reviewed and electronically signed by: ASHLEY MORALES MD on Aug 25 2017 8:40AM [id number] Normal [facility] Magnesiumon 08-24-2017 Magnesium 2.3 mg/dL Normal 1.7-2.6 [facility] Comment on above: Performed By: #### P T, PTT, AMYL, CMP, LIPA, PHOS ####[facility] [place], [place] [phone]#### TRANSF ####[facility] [place], [place] [phone] NURSING PROGon 08-24-2017 NURSING PROG HNO ID: [id number] thor: Shavonne (Rn) Tabatha, RNService: NursingAuthor Type: Registered NurseType: Nursing Progress NoteFiled: 08/24/2017 4:58 PMNote Text: Nursing Progress NotePatient Name: Rocio HayesN: [id number] Location: [place] [address]/[id number] ____Daily Note:Pt A+Ox3, flat affect, quiet. Speech clear. Skin pale and slightlyjaundiced. NSR on quality assurance monitor chassis. Abdomen soft and tender, 3 lap sitesOTA [...] note was completed by: Shavonne Mays, RN [facility] PROGRESSon 08-24-2017 PROGRESS HNO ID: [id number] thor: Michael Cedillo) AugustinService: General SurgeryAuthor Type: PhysicianType: Progress NotesFiled: 08/24/2017 4:45 PMNote Text:GENERAL SURGERY INPATIENT PROGRESS NOTENAME: Rocio JacksonMRN: [id number] 2017 8:43 AMASSESSMENT AND PLAN:Rocio Jackson is [...] kg (192 lb) SpO2 97% BMI 29.19 kg/g4Moxtxx: Breathing comfortably on RA, speaking in full sentencesAbdominal examination: Abdomen soft, non-distended, mildly tenderTubes/Drains/Stoma: PTHC drain in place, serosanguineous output, 1275mlFlatus/Bowel movement: Bowel function +Nausea/Emesis: NegativePain Control: IV dilaudid PO tylenolRenal: UOP adequateAntibiotics: AugmentinPending labs/results: None. Culture grew streptococcus mutansDate 08/23/17 07 - 08/24/17 0659 08/24/17 07 - 08/25/17 0659Shift 3559-5028 2066-2679 0888-7449 24 Hour Total 2144-4820 1312-95033479-8913 24 Hour TotalINTAKE PO 1080 471 98 9376 PO 600 004 68 1326 Supplements (mL) 480 240 720 Shift Total 1080 720 60 1860OUTPUT Urine 3 101 104 0 0 Void (ml) 100 100 0 0 Urine Incontinence/Not Saved 1 x 1 x Urine Not Saved 3 1 4 Emesis 0 0 Emesis (ml) 0 0 Tubes 625 329 099 8781 300 300 Drain/Tube Output (Drain/Tube 08/15/17 1530 Assessment Right UpperAbdomen) 50 50 0 0 Drain/Tube Output (Drain/Tube 08/19/17 1443 Biliary Right Lateral;LowerQuadrant Abdomen) 625 294 436 7059 300 300 # of BMs Number of BMs 2 x 1 x 1 x 4 x 1 x 1 x Shift Total 625 292 350 4934 300 300Weight (kg) 87.1 87.1 87.1 87.1 [...] and changes will bemade where applicable.Serena Trent MDGenecleveland clinic hillcrest [facility] Surgery, PGY - 1Pager #: [phone](After 6pm and weekends please contact Surgery oncall team)STAFF NOTEI have independently seen and examined the patient today. I haveindependently reviewed all the imaging and the labs. I agree with keycomponents of the resident's note above. Care plan and decision making hasbeen discussed.Doing well, no complaintsWill get CT to assess status of collectionsPTC cholangiogram to look for active leaksToms MD Froilan, MPH, FACSGeneral/Trauma/HPB SurgeryPager: [phone] Cell: [phone] 2017 [facility] 08-24-2017 Phosphate 2.6 mg/dL Normal 2.5-4.5 [facility] Comment on above: Performed By: #### P T, PTT, AMYL, CMP, LIPA, PHOS ####[facility] [place], [place] [phone]#### TRANSF ####[facility] [address] [place], [place] [phone] THERAPY NTon 08-24-2017 THERAPY NT HNO ID: [id number] thor: Mandi (Ot) GarnekService: Occupational TherapyAuthor Type: Occupational TherapistType: Therapy (PT/OT/Speech/Resp)Filed: 08/24/2017 1:30 PMNote Text:Occupational Therapy TreatmentSERVICE DATE: 08/24/2017SERVICE TIME: 1245 to 1300ROOM: [place] [address] ( OPERATING ROOM)Admit with Emesis X 1 Month, Abdominal Pain, Partial Duodenal Obstructionand Obstructive Jaundice, Abdominal Abscess, S/P CT Guided AbscessDrainage 08/15/17, S/P Recent Cholecystectomy 08/11/17, and ERCP 08/13/17?Recommended Discharge Disposition: Subacute/SNFRecommended Discharge Disposition Comments: (Pt hopes [place] continue therapyin SNF in [place])Anticipated Discharge Needs: Physical Assist at HomePhysical Assist at Home for: Ambulation;Cleaning;Laundry; Meals;MedicationManagement;S tairs;Self Care;Shopping;Transportation Recommended Discharge Equipment: Elastic Shoe Laces;Grab Bars-Shower;HandHeld Shower;Long Handled Shoe Horn;Long Handled Sponge;WheeledWalker;Bunch Breaker ;Sock Aide;Shower ChairOT Recommendations to Nursing: OOB [...] History Relevantto Therapy Includes: DM, Glaucoma, HTN, [place]. For Complete Past MedicalHistory Please Refer to [facility]. Pt presents with decreased ability tocomplete ADL's requiring assist at this time. Pt also presents withdecreased activity tolerance, functional mobility, strength, and safety.Pt requires skilled OT services to address progression of ADL's,functional mobility, strength, increase activity tolerance, and safety.Pt has adequate support and social structure for reasonably safe dischargehome at current level. Pt is currently employed in a [employer] watching [employer]. Pt has a small dog [...] dailyliving (ADL);Muscle Weakness (generalized)Interventions Provided: Therapeutic Activity (83295)Therapeutic Activity (18041) Treatment Minutes: 151 unitSkilled Intervention(s): Instructed patient [...] G CODE:OT 6 Clicks Score: 18 (08/24/17 124)Self Care Current Status (G8987): CK (08/24/171244)Self Care [...] RE: Mandi Jamison OTR/L PATIENT NAME: Rocio VizcarraTE: August 24, 2017 : 1:28 PM PAGER: [phone] [facility] THERAPY NT HNO ID: [id number] thor: Adela ([facility]) Jhonatane: Physical TherapyAuthor Type: Physical Therapy AssistantType: Therapy (PT/OT/Speech/Resp)Filed: 08/24/2017 10:53 AMNote Text: -Attestation signed by Tonia KenPtLyric Schmitz at 08/24/2017 12:43 PMI reviewed and agree with the documentation corresponding to this therapyvisit.SIGNATURE: Tonia Schmitz, PTDATE: August 24, 2017TIME: 12:43 PM Ph ysical Therapy TreatmentSERVICE DATE: 08/24/2017SERVICE TIME: 1015 to 1040ROOM: [id number] ( OPERATING ROOM)Abdominal abscess; S/ P cholestectomy [...] Weakness (generalized);General symptoms andsigns-otherInterventions Provided: Therapeutic Exercise (27528);Gait Training (80088)Therapeutic Exercise (88251) Treatment Minutes: 101 unitSkilled Intervention(s): Instruction in therapeutic exercise for B LEstrengthening, balanceVerbal and tactile cuing provided for pace and performance; rest breaksprovided as neededGait Training (36348) Treatment Minutes: 151 unitSkilled Intervention(s): Instruction in [...] 24, 2017 : 10:46 AM PAGER/CONTACT #: [phone] Normal [facility] Basic Metabolic Panlon 08-23 Anion gap 10 mmol/L Normal 9-18 [facility] Comment on above: Performed By: #### P T, PTT, AMYL, CMP, LIPA, PHOS ####[place] [address]#### TRANSF ####[place] [address] Calcium 7.7 mg/dL Low 8.5-10.5 [facility] Comment on above: Performed By: #### P T, PTT, AMYL, CMP, LIPA, PHOS ####[place] [address]#### TRANSF ####[place] [address] Chloride 104 mmol/L Normal 98-110 [facility] Comment on above: Performed By: #### P T, PTT, AMYL, CMP, LIPA, PHOS ####[place] [address]#### TRANSF ####[place] [address] CO2 25 mmol/L Normal 23-32 [facility] Comment on above: Performed By: #### P T, PTT, AMYL, CMP, LIPA, PHOS ####[place] [address]#### TRANSF ####[address]444-[address] Creatinine 0.55 mg/dL Low 0.70-1.40 [facility] Comment on above: Performed By: #### P T, PTT, AMYL, CMP, LIPA, PHOS ####[place] [address]56[address]71[address]#### TRANSF ####[place] [address]174[address] eGFR (non-black) mL/min/{1.73_m2} Normal >60 [facility] Comment on above: Performed By: #### P T, PTT, AMYL, CMP, LIPA, PHOS ####[place] [address]#### TRANSF ####[place] [address] Glucose mass conc 123 mg/dL High 65-100 [facility] Comment on above: Performed By: #### P T, PTT, AMYL, CMP, LIPA, PHOS ####[place] [address]#### TRANSF ####[place] [address] Potassium molar conc 4.1 mmol/L Normal 3.5-5.0 [facility] Comment on above: Performed By: #### P T, PTT, AMYL, CMP, LIPA, PHOS ####[address]#### TRANSF ####[place] [address] Sodium 139 mmol/L Normal 135-146 [facility] Comment on above: Performed By: #### P T, PTT, AMYL, CMP, LIPA, PHOS ####[address]#### TRANSF ####[place] [address]609100 [place], [place] [phone] Urea nitrogen 10 mg/dL Normal 04-22 [facility] Comment on above: Performed By: #### P T, PTT, AMYL, CMP, LIPA, PHOS ####[place] [phone]#### TRANSF ####[address] [phone] Magnesiumon 08-23-2017 Magnesium 2.3 mg/dL Normal 1.7-2.6 [facility] Comment on above: Performed By: #### P T, PTT, AMYL, CMP, LIPA, PHOS ####[place] [phone]#### TRANSF ####[address] [phone] PROGRESSon 08-23-2017 PROGRESS HNO ID: [id number] thor: Jose Damon: General SurgeryAuthor Type: PhysicianType: Progress NotesFiled: 08/23/2017 1:57 PMNote Text:PROGRESS NOTES - SURGICAL SERVICESPATIENT NAME: Rocio Boudreaux: [id number] HISTORY OF PRESENT ILLNESS:No acute events overnight. [...] stable.Jose Manning MDFebruary 2017 1:57 PM Normal [facility] Phosphoruson 08-23-2017 Phosphate 2.4 mg/dL Low 2.5-4.5 [facility] Comment on above: Performed By: #### P T, PTT, AMYL, CMP, LIPA, PHOS ####[place] [address]#### TRANSF ####[place] [address] Basic Metabolic Panlon 08-22 Anion gap 9 mmol/L Normal 9-18 [facility] Comment on above: Performed By: #### P T, PTT, AMYL, CMP, LIPA, PHOS ####[place] [address]#### TRANSF ####[place] [address] Calcium 7.7 mg/dL Low 8.5-10.5 [facility] Comment on above: Performed By: #### P T, PTT, AMYL, CMP, LIPA, PHOS ####[place] [address]#### TRANSF ####[place] [address] Chloride 105 mmol/L Normal 98-110 [facility] Comment on above: Performed By: #### P T, PTT, AMYL, CMP, LIPA, PHOS ####[place] [address]#### TRANSF ####[place] [address] CO2 25 mmol/L Normal 23-32 [facility] Comment on above: Performed By: #### P T, PTT, AMYL, CMP, LIPA, PHOS ####[place] [address]#### TRANSF ####[place] [address] Creatinine 0.57 mg/dL Low 0.70-1.40 [facility] Comment on above: Performed By: #### P T, PTT, AMYL, CMP, LIPA, PHOS ####[place] [address]#### TRANSF ####[place] [address] eGFR (non-black) mL/min/{1.73_m2} Normal >60 [facility] Comment on above: Performed By: #### P T, PTT, AMYL, CMP, LIPA, PHOS ####[place] [address]#### TRANSF ####[place] [address] Glucose mass conc 111 mg/dL High 65-100 [facility] Comment on above: Performed By: #### P T, PTT, AMYL, CMP, LIPA, PHOS ####[place] [address]#### TRANSF ####[place] [address]174[address] Potassium molar conc 3.7 mmol/L Normal 3.5-5.0 [facility] Comment on above: Performed By: #### P T, PTT, AMYL, CMP, LIPA, PHOS ####[place] [address]#### TRANSF ####[place] [address] Sodium 139 mmol/L Normal 135-146 [facility] Comment on above: Performed By: #### P T, PTT, AMYL, CMP, LIPA, PHOS ####[place] [address]#### TRANSF ####[phone] Urea nitrogen 8 mg/dL Low 10-25 [facility] Comment on above: Performed By: #### P T, PTT, AMYL, CMP, LIPA, PHOS ####[place] [address]#### TRANSF ####[place] [phone] CBC and Differentialon 08-22 Abs Baso <0.03 Normal <0.11 [facility] Comment on above: Performed By: #### P T, PTT, AMYL, CMP, LIPA, PHOS ####[place] [address]#### TRANSF ####[place] [address] Abs Lamar 0.41 k/uL Normal <0.87 [facility] Comment on above: Performed By: #### P T, PTT, AMYL, CMP, LIPA, PHOS ####[place] [address]#### TRANSF ####[place] [address] Abs Neut 3.57 k/uL Normal 1.45-7.50 [facility] Comment on above: Performed By: #### P T, PTT, AMYL, CMP, LIPA, PHOS ####[place] [address]#### TRANSF ####[place] [phone] Basophils/100 WBC Auto (Bld) 0.2 % Normal [facility] Comment on above: Performed By: #### P T, PTT, AMYL, CMP, LIPA, PHOS ####[place] [address]#### TRANSF ####[address] Av[address] [place] [phone] DTYPE Auto Diff Normal [facility] Comment on above: Performed By: #### P T, PTT, AMYL, CMP, LIPA, PHOS ####[place] [address]#### TRANSF ####[place] [address] Eosinophils 0.15 10*3/uL Normal <0.46 [facility] Comment on above: Performed By: #### P T, PTT, AMYL, CMP, LIPA, PHOS ####[place] [address]#### TRANSF ####[place] [address] Eosinophils/100 leukocytes 2.9 % Normal [facility] Comment on above: Performed By: #### P T, PTT, AMYL, CMP, LIPA, PHOS ####[place] [address]#### TRANSF ####[place] [phone] Erythrocyte distribution width Auto Ratio (RBC) 16.1 % High 11.5-15.0 [facility] Comment on above: Performed By: #### P T, PTT, AMYL, CMP, LIPA, PHOS ####[place] [address]#### TRANSF ####[address] Av[address] [place]ille [phone] Erythrocytes (RBC) 2.90 10*6/uL Low 4.20-6.00 [facility] Comment on above: Performed By: #### P T, PTT, AMYL, CMP, LIPA, PHOS ####[place] [address]#### TRANSF ####[phone] Hematocrit (HCT) 25.0 % Low 39.0-51.0 [facility] Comment on above: Performed By: #### P T, PTT, AMYL, CMP, LIPA, PHOS ####[place] [address]#### TRANSF ####[phone] Hemoglobin mass conc (Bld) 8.1 g/dL Low 13.0-17.0 [facility] Comment on above: Performed By: #### P T, PTT, AMYL, CMP, LIPA, PHOS ####[place] [address]#### TRANSF ####[phone] Lymphocytes 1.09 10*3/uL Normal 1.00-4.00 [facility] Comment on above: Performed By: #### P T, PTT, AMYL, CMP, LIPA, PHOS ####[place] [address]#### TRANSF ####[place] [address] Lymphocytes/100 leukocytes 20.8 % Normal [facility] Comment on above: Performed By: #### P T, PTT, AMYL, CMP, LIPA, PHOS ####[place] [address]#### TRANSF ####[place] [phone] MCH 27.9 pG Normal 26.0-34.0 [facility] Comment on above: Performed By: #### P T, PTT, AMYL, CMP, LIPA, PHOS ####[place] [address]#### TRANSF ####[place] [phone] MCHC mass conc (RBC) 32.4 g/dL Normal 30.5-36.0 [facility] Comment on above: Performed By: #### P T, PTT, AMYL, CMP, LIPA, PHOS ####[place] [address]#### TRANSF ####[place] [address] MCV 86.2 fL Normal 80.0-100.0 [facility] Comment on above: Performed By: #### P T, PTT, AMYL, CMP, LIPA, PHOS ####[place] [address]#### TRANSF ####[place] [address] Monocytes/100 leukocytes 7.8 % Normal [facility] Comment on above: Performed By: #### P T, PTT, AMYL, CMP, LIPA, PHOS ####[place] [address]#### TRANSF ####[place] [address] Neutrophils/100 WBC Auto (Bld) 68.3 % Normal [facility] Comment on above: Performed By: #### P T, PTT, AMYL, CMP, LIPA, PHOS ####[place] [address]#### TRANSF ####[place] [phone] Platelet mean volume (PMV) 9.9 fL Normal 9.0-12.7 [facility] Comment on above: Performed By: #### P T, PTT, AMYL, CMP, LIPA, PHOS ####[place] [address]#### TRANSF ####[place] [phone] Platelets 354 10*3/uL Normal 150-400 [facility] Comment on above: Performed By: #### P T, PTT, AMYL, CMP, LIPA, PHOS ####[place] [address]#### TRANSF ####[place] [phone] WBC (Leukocytes) 5.23 10*3/uL Normal 3.70-11.00 [facility] Comment on above: Performed By: #### P T, PTT, AMYL, CMP, LIPA, PHOS ####[place] [phone]#### TRANSF ####[place] [phone] CONSULT PROGon 08-22-2017 CONSULT PROG HNO ID: [id number] thor: Sabrina ([facility]) PineiroService: Cardiovascular DiseaseAuthor Type: Nurse PractitionerType: Consult [...] 5,000 Units SUBCUTANEOUS q 8 Hphenol 1 Hodges (CHLORASEPTIC) 1 Hodges MUCOUS MEMBRANE (TOPICAL MOUTH ANDTHROAT) q 2 [...] 2.1*ALT 55*AST 42*ALKPHOS 241*TBILI 0.7SIGNATURE: Sabrina Arango, GRISELDA PATIENT NAME: Rocio BriandonnyDATE: August 22, 2017 : 2:37 PM PAGER/CONTACT #: Normal [facility] Magnesiumon 08-22-2017 Magnesium 2.3 mg/dL Normal 1.7-2.6 [facility] Comment on above: Performed By: #### P T, PTT, AMYL, CMP, LIPA, PHOS ####[facility] [place], [place] [phone]#### TRANSF ####[facility] [address] [place], [place] [phone] NUTRITIONon 08-22-2017 NUTRITION HNO ID: [id number] thor: Alise Segura) BarsaService: Nutrition TherapyAuthor Type: Registered DietitianType: NutritionFiled: 08/22/2017 2:13 PMNote Text:NUTRITION THERAPY PROGRESS NOTESERVICE DATE: 08/22/2017SERVICE TIME: 2:06 PMRECOMMENDED DIAGNOSIS: SEVERE PROTEIN-CALORIE MALNUTRITION per RegisteredDietitian on 2/21NUTRITION CARE PLANIntervention:Diet - Full Liquids - tolerating [...] Weight: 87?kgResting Metabolic Rate: 1661Estimated kilocalorie needs: 4698-0118?kilocalories determined by25-28?kcal/kgEstimated protein needs:113 - ?130?grams determined [...] 5,000 Units SUBCUTANEOUS q 8 Hphenol 1 Hodges (CHLORASEPTIC) 1 Hodges MUCOUS MEMBRANE (TOPICAL MOUTH ANDTHROAT) q 2 [...] RD, LD PATIENT NAME: Rocio FrischDATE: August 22, 2017 : 2:06 PM PAGER: For further assistance and weekends please page theGroup Pager [phone] [facility] PROGRESSon 08-22-2017 PROGRESS HNO ID: [id number] thor: Jose Damon: General SurgeryAuthor Type: PhysicianType: Progress NotesFiled: 08/22/2017 3:31 PMNote Text:PROGRESS NOTES - SURGICAL SERVICESPATIENT NAME: Rocio Boudreaux: [id number] HISTORY OF PRESENT ILLNESS:No acute events overnight. [...] dilation.Will watch PTC output.Possible DC soon.Jose Manning MDFebruary 2017 3:31 PM Normal [facility] Phosphoruson 08-22-2017 Phosphate 2.6 mg/dL Normal 2.5-4.5 [facility] Comment on above: Performed By: #### P T, PTT, AMYL, CMP, LIPA, PHOS ####[facility] [place], [place] [phone]#### TRANSF ####[facility] [address] [place], [place] [phone] CASE MANAGEMon 08-21-2017 CASE MANAGEM HNO ID: [id number] thor: Alexandrea (Rn) MOUSTAPHA Tomaservice: Care ManagementAuthor Type: Registered NurseType: Care Mgt Progress NoteFiled: 08/21/2017 3:26 PMNote Text:CARE MANAGEMENT PROGRESS NOTESERVICE DATE: 08/21/2017SERVICE TIME: 10:02 AM LOS: 8 daysNeeds Prior to Discharge: To Be Determined;OT/PT EvaluationPer discussion with Dr Duffy.[facility] [place] [facility].PT OT evals are needed, pt may also need Home PT OT.[facility] accepted pt for drain care.Pt will stay with his sister. [facility] Muller at [facility].[address] [place] [id number] [facility] was notified.[facility] for SN PT OT is planned.[facility] was updated.SIGNATURE: Alexandrea Tomas RN PATIENT NAME: Rocio JacksonDATE: August 21, 2017 : 10:01 AM PAGER/CONTACT #: [phone] Normal [facility] CBC and Differentialon 08-21 Abs Baso <0.03 Normal <0.11 [facility] Comment on above: Performed By: #### P T, PTT, AMYL, CMP, LIPA, PHOS ####[place] [address]#### TRANSF ####[place] [address] Abs Lamar 0.43 k/uL Normal <0.87 [facility] Comment on above: Performed By: #### P T, PTT, AMYL, CMP, LIPA, PHOS ####[place] [address]#### TRANSF ####[place] [address] Abs Neut 4.17 k/uL Normal 1.45-7.50 [facility] Comment on above: Performed By: #### P T, PTT, AMYL, CMP, LIPA, PHOS ####[place] [address]#### TRANSF ####[phone] Basophils/100 WBC Auto (Bld) 0.4 % Normal [facility] Comment on above: Performed By: #### P T, PTT, AMYL, CMP, LIPA, PHOS ####[place] [address]#### TRANSF ####[place] [address] DTYPE Auto Diff Normal [facility] Comment on above: Performed By: #### P T, PTT, AMYL, CMP, LIPA, PHOS ####[place] [address]#### TRANSF ####[place] [address]174[address] Eosinophils 0.18 10*3/uL Normal <0.46 [facility] Comment on above: Performed By: #### P T, PTT, AMYL, CMP, LIPA, PHOS ####[place] [address]#### TRANSF ####[place] [address] Eosinophils/100 leukocytes 3.2 % Normal [facility] Comment on above: Performed By: #### P T, PTT, AMYL, CMP, LIPA, PHOS ####[place] [address]#### TRANSF ####[place] [address]174[address] Erythrocyte distribution width Auto Ratio (RBC) 15.9 % High 11.5-15.0 [facility] Comment on above: Performed By: #### P T, PTT, AMYL, CMP, LIPA, PHOS ####[place] [address]#### TRANSF ####[place] [address]174[address] Erythrocytes (RBC) 3.16 10*6/uL Low 4.20-6.00 [facility] Comment on above: Performed By: #### P T, PTT, AMYL, CMP, LIPA, PHOS ####[place] [address]#### TRANSF ####[place] [address] Hematocrit (HCT) 27.9 % Low 39.0-51.0 [facility] Comment on above: Performed By: #### P T, PTT, AMYL, CMP, LIPA, PHOS ####[place] [address]#### TRANSF ####[place] [address]174[address] Hemoglobin mass conc (Bld) 8.9 g/dL Low 13.0-17.0 [facility] Comment on above: Performed By: #### P T, PTT, AMYL, CMP, LIPA, PHOS ####[place] [address]#### TRANSF ####[place] [address] Lymphocytes 0.84 10*3/uL Low 1.00-4.00 [facility] Comment on above: Performed By: #### P T, PTT, AMYL, CMP, LIPA, PHOS ####[place] [address]#### TRANSF ####[place] [address] Lymphocytes/100 leukocytes 14.9 % Normal [facility] Comment on above: Performed By: #### P T, PTT, AMYL, CMP, LIPA, PHOS ####[place] [address]#### TRANSF ####[place] [address] MCH 28.2 pG Normal 26.0-34.0 [facility] Comment on above: Performed By: #### P T, PTT, AMYL, CMP, LIPA, PHOS ####[place] [address]#### TRANSF ####[place] [address]174[address] MCHC mass conc (RBC) 31.9 g/dL Normal 30.5-36.0 [facility] Comment on above: Performed By: #### P T, PTT, AMYL, CMP, LIPA, PHOS ####[place] [address]#### TRANSF ####[place] [address]174[address] MCV 88.3 fL Normal 80.0-100.0 [facility] Comment on above: Performed By: #### P T, PTT, AMYL, CMP, LIPA, PHOS ####[place] [address]#### TRANSF ####[place] [address] Monocytes/100 leukocytes 7.6 % Normal [facility] Comment on above: Performed By: #### P T, PTT, AMYL, CMP, LIPA, PHOS ####[place] [address]#### TRANSF ####[place] [address]174[address] Neutrophils/100 WBC Auto (Bld) 73.9 % Normal [facility] Comment on above: Performed By: #### P T, PTT, AMYL, CMP, LIPA, PHOS ####[place] [address]#### TRANSF ####[place] [phone] Platelet mean volume (PMV) 10.1 fL Normal 9.0-12.7 [facility] Comment on above: Performed By: #### P T, PTT, AMYL, CMP, LIPA, PHOS ####[place] [address]2456[address]#### TRANSF ####[place] [phone] Platelets 380 10*3/uL Normal 150-400 [facility] Comment on above: Performed By: #### P T, PTT, AMYL, CMP, LIPA, PHOS ####[place] 552456[address]#### TRANSF ####[place] [phone] WBC (Leukocytes) 5.64 10*3/uL Normal 3.70-11.00 [facility] Comment on above: Performed By: #### P T, PTT, AMYL, CMP, LIPA, PHOS ####[place] [address]2456[address]71[address]#### TRANSF ####[phone] CONSULT PROGon 08-21-2017 CONSULT PROG HNO ID: [id number] thor: Jessee Ibrahim BollaService: Cardiovascular DiseaseAuthor Type: PhysicianType: Consult Progress NoteFiled: [...] 5,000 Units SUBCUTANEOUS q 8 Hphenol 1 Hodges (CHLORASEPTIC) 1 Hodges MUCOUS MEMBRANE (TOPICAL MOUTH ANDTHROAT) q 2 [...] 21, 2017 : 2:42 PM PAGER/CONTACT #: [facility] CONSULT PROG HNO ID: [id number] thor: Linda (Griselda) Tyesha: GastroenterologyAuthor Type: Nurse PractitionerType: Consult Progress NoteFiled: [...] 5,000 Units SUBCUTANEOUS q 8 Hphenol 1 Hodges (CHLORASEPTIC) 1 Hodges MUCOUS MEMBRANE (TOPICAL MOUTH ANDTHROAT) q 2 [...] for assistance with strengthening andnutritional support?Linda Avalos CNPSioux City Gastro[facility]ology?Thank you for allowing us to participate in the care of this patient.Please call with questions or concerns.SIGNATURE: Linda Avalos CNP PATIENT NAME: Rocio JacksonDATE: August 21, 2017 : 9:34 AM PAGER: [phone] Normal [facility] Magnesiumon 08-21-2017 Magnesium 2.2 mg/dL Normal 1.7-2.6 [facility] Comment on above: Performed By: #### P T, PTT, AMYL, CMP, LIPA, PHOS ####[facility] [place], [place] [phone]#### TRANSF ####[facility] [address], [place] [phone] PROGRESSon 08-21-2017 PROGRESS HNO ID: [id number] thor: Khadar Guo: General SurgeryAuthor Type: PhysicianType: Progress NotesFiled: 08/21/2017 6:50 PMNote Text:PROGRESS NOTES - SURGICAL SERVICESPATIENT NAME: Rocio JacksonMRN: [id number] HISTORY OF PRESENT ILLNESS:Got PTHC on 08/19. [...] Continue inpatient admissionKAEL HERNANDEZ MD (Res)General SurgeryPager: [phone]*On weekends or nights (after 1800) please contact the surgery on callpager.*Att: As above. Hopeful for home on full liquids/protein shakestomorrow.Consider dc of ROMINA drain before DC.PtC must be kept to gravity since it could not be advanced to duodenum.Outpt f/u with Dr Jolley as soon as available.Khadar Duffy MDFebruary 2017 6:50 PM Normal [facility] Phosphoruson 08-21-2017 Phosphate 2.9 mg/dL Normal 2.5-4.5 [facility] Comment on above: Performed By: #### P T, PTT, AMYL, CMP, LIPA, PHOS ####[facility] [place], [place] [phone]#### TRANSF ####[facility] [address] [place], [place] [phone] THERAPY NTon 08-21-2017 THERAPY NT HNO ID: [id number] thor: Sujata (Pt) PapcunService: Physical TherapyAuthor Type: Physical TherapistType: Therapy (PT/OT/Speech/Resp)Filed: 08/21/2017 2:10 PMNote Text:Physical Therapy EvaluationSERVICE DATE: 08/21/2017SERVICE TIME: 1255 to 1320ROOM: [place] [address] ( OPERATING ROOM)Recommended Discharge Disposition: Home PTAnticipated [...] drain. Patient's pertinent PMHx includesDM, glaucoma; HTN; [place]; s/p [place]; 2 stents. Patient's impairments as relatedto Physical [...] improve safety and independence with functionalmobility. Recommend [facility] PT with pt's approval.Tolerance Limited [...] Reduced mobility-other;Muscle Weakness (generalized)Interventions Provided: Evaluation;Gait Training (32614)$ Evaluation-Low (22869) Billed Units: 1 unitGait Training (81494) Treatment Minutes: 101 unitSkilled Intervention(s): Instruction in [...] RE: Sujata Ohara, PT PATIENT NAME: Rocio TorresschDATE: August 21, 2017 : 2:05 PM PAGER/CONTACT #: [phone] [facility] THERAPY NT HNO ID: [id number] thor: Mandi (Ot) GarnekService: Occupational TherapyAuthor Type: Occupational TherapistType: Therapy (PT/OT/Speech/Resp)Filed: 08/21/2017 11:25 AMNote Text:Occupational Therapy EvaluationSERVICE DATE: 08/21/2017SERVICE TIME: 0845 to 09ROOM: [place] [address] ( OPERATING ROOM)Admit with Emesis X 1 Month, Abdominal Pain, Partial Duodenal Obstructionand Obstructive Jaundice, Abdominal Abscess, S/P CT Guided AbscessDrainage 08/15/17, S/P Recent Cholecystectomy 08/11/17, and ERCP 08/13/17Recommended Discharge Disposition: Home OTAnticipated Discharge Needs: Physical Assist at Home;EquipmentPhysical Assist at Home for: Cleaning;Laundry;Meals;SelfC are;Shopping;TransportationR ecommended Discharge Equipment: Elastic Shoe Laces;Grab Bars-Shower;HandHeld Shower;Long Handled Shoe Horn;Long Handled Sponge;WheeledWalker;Bunch Breaker ;Sock Aide;Shower ChairOT Recommendations to Nursing: OOB [...] History Relevantto Therapy Includes: DM, Glaucoma, HTN, [place]. For Complete Past MedicalHistory Please Refer to [...] level. Pt is currently employed in a [employer], [place] watching [employer]. Pt has a small dog [...] dailyliving (ADL);Muscle Weakness (generalized)Interventions Provided: Evaluation;Therapeutic Activity (46208)$ Evaluation-Low (82591) Billed Units: 1 unitTherapeutic Activity (49496) Treatment Minutes: 101 unitSkilled Intervention(s): Instructed patient [...] prior toadmit, and works FT in a [employer].OBJECTIVE:Responsiven ess: Alert;AwakeFollows Commands: 3-step CommandsVision Deficits: Wears [...] RE: Mandi Jamison OTR/L PATIENT NAME: Rocio VizcarraTE: August 21, 2017 : 11:19 AM PAGER: [phone] [facility] CASE MANAGEMon 08-20-2017 CASE MANAGEM HNO ID: [id number] thor: Alexandera (Kevin) Thom, RNService: Care ManagementAuthor Type: Registered NurseType: Care Mgt Progress NoteFiled: 08/20/2017 1:48 PMNote Text:MULTIDISCIPLINARY ROUNDSSERVICE DATE: 08/20/2017 ADMISSION DATE: 08/13/2017SERVICE TIME: 1:46 PM ANTICIPATED D/C DATE: List:ACTIVE PROBLEM LISTDuodenal ObstructionSevere Protein-Calorie Malnutrition (Hcc)Attendees Present at Rounds:Pantry Goods Worker: Chantelleurse Plant Custodian/Theology Professor Nurse Plant Custodian: Roderick Nurse: Laura Discussed on Rounds:Discharge NeedsPlan of CareAnticipated Discharge Disposition:[facility] Nursing FacilityPer discussion with Dr Duffy pt [...] August 20, 2017 : 1:46 PM CSN: [id number] Normal [facility] CBCon 08-20-2017 Erythrocyte distribution width Auto Ratio (RBC) 15.8 % High 11.5-15.0 [facility] Comment on above: Performed By: #### C BC, CMP, MG1, PHOS ####[place] [address] Erythrocytes (RBC) 2.93 10*6/uL Low 4.20-6.00 [facility] Comment on above: Performed By: #### C BC, CMP, MG1, PHOS ####[place] [address] Hematocrit (HCT) 26.0 % Low 39.0-51.0 [facility] Comment on above: Performed By: #### C BC, CMP, MG1, PHOS ####[place] [address] Hemoglobin mass conc (Bld) 8.3 g/dL Low 13.0-17.0 [facility] Comment on above: Performed By: #### C BC, CMP, MG1, PHOS ####[place] [address] MCH 28.3 pG Normal 26.0-34.0 [facility] Comment on above: Performed By: #### C BC, CMP, MG1, PHOS ####[place] [address] MCHC mass conc (RBC) 31.9 g/dL Normal 30.5-36.0 [facility] Comment on above: Performed By: #### C BC, CMP, MG1, PHOS ####[place] [address] MCV 88.7 fL Normal 80.0-100.0 [facility] Comment on above: Performed By: #### C BC, CMP, MG1, PHOS ####[place] [address] Platelet mean volume (PMV) 9.6 fL Normal 9.0-12.7 [facility] Comment on above: Performed By: #### C BC, CMP, MG1, PHOS ####[place] [id number] Platelets 331 10*3/uL Normal 150-400 [facility] Comment on above: Performed By: #### C BC, CMP, MG1, PHOS ####[place] [id number] WBC (Leukocytes) 5.78 10*3/uL Normal 3.70-11.00 [facility] Comment on above: Performed By: #### C BC, CMP, MG1, PHOS ####[place] [phone] Comp Metabolic Panelon 08-20 Alanine aminotransferase (ALT) 55 U/L High 5-50 [facility] Comment on above: Performed By: #### C BC, CMP, MG1, PHOS ####[address] Albumin 2.1 g/dL Low 3.5-5.0 [facility] Comment on above: Result Comment: Revi ewed Performed By: #### C BC, CMP, MG1, PHOS ####[address] Alkaline phosphatase (ALP) 241 U/L High 40-150 [facility] Comment on above: Performed By: #### C BC, CMP, MG1, PHOS ####[place] [phone] Anion gap 9 mmol/L Normal 9-18 [facility] Comment on above: Performed By: #### C BC, CMP, MG1, PHOS ####[place] [phone] Aspartate aminotransferase (AST) 42 U/L High 7-40 [facility] Comment on above: Result Comment: Resu lts may be falsely increased due to interference by hemolysis. Suggest reorder as clinically indicated. Performed By: #### C BC, CMP, MG1, PHOS ####[place] [id number] Bilirubin (total) 0.7 mg/dL Normal 0.0-1.5 [facility] Comment on above: Performed By: #### C BC, CMP, MG1, PHOS ####[place] [phone] Calcium 7.6 mg/dL Low 8.5-10.5 [facility] Comment on above: Performed By: #### C BC, CMP, MG1, PHOS ####[place] [phone] Chloride 109 mmol/L Normal 98-110 [facility] Comment on above: Performed By: #### C BC, CMP, MG1, PHOS ####[place] [phone] CO2 23 mmol/L Normal 23-32 [facility] Comment on above: Performed By: #### C BC, CMP, MG1, PHOS ####[place] [phone] Creatinine 0.68 mg/dL Low 0.70-1.40 [facility] Comment on above: Performed By: #### C BC, CMP, MG1, PHOS ####[place] [phone] eGFR (non-black) mL/min/{1.73_m2} Normal >60 [facility] Comment on above: Performed By: #### C BC, CMP, MG1, PHOS ####[place] [phone] Glucose mass conc 117 mg/dL High 65-100 [facility] Comment on above: Performed By: #### C BC, CMP, MG1, PHOS ####[place] [phone] Potassium molar conc 3.9 mmol/L Normal 3.5-5.0 [facility] Comment on above: Performed By: #### C BC, CMP, MG1, PHOS ####[place] [phone] [place] [address] Protein 5.3 g/dL Low 6.0-8.4 [facility] Comment on above: Performed By: #### C BC, CMP, MG1, PHOS ####[place] [address] Sodium 141 mmol/L Normal 135-146 [facility] Comment on above: Performed By: #### C BC, CMP, MG1, PHOS ####[place] [phone] [address] Urea nitrogen 6 mg/dL Low 10-25 [facility] Comment on above: Performed By: #### C BC, CMP, MG1, PHOS ####[address] Magnesiumon 08-20-2017 Magnesium 2.2 mg/dL Normal 1.7-2.6 [facility] Comment on above: Performed By: #### C BC, CMP, MG1, PHOS ####[place] [address] NURSING PROGon 08-20-2017 NURSING PROG HNO ID: [id number] thor: Maryanne (Rn) Luis Miguel, RNService: (none)Author Type: Registered NurseType: Nursing Progress NoteFiled: 08/20/2017 9:53 AMNote Text: Nursing Progress NotePatient Name: Rocio Boudreaux: [id number] Location: [facility]3C36/[id number] ____0945 - attempted to flush right double lumen PICC, both lumens are patentwith positive blood return, restarted ordered IV fluids. Patienttolerating wellThis note was completed by: Maryanne Bolanos RN [facility] PROGRESSon 08-20-2017 PROGRESS HNO ID: [id number] thor: Khadar Guo: General SurgeryAuthor Type: PhysicianType: Progress NotesFiled: 08/20/2017 12:27 PMNote Text:PROGRESS NOTES - SURGICAL SERVICESPATIENT NAME: Rocio Boudreaux: [id number] HISTORY OF PRESENT ILLNESS:Got PTHC yesterday. No [...] PTHC to gravity-Dispo: Continue inpatient admissionSIGNATURE: Kayleen Montanojaneldamien, MDDATE: August 20, 2017TIME: 7:48 AMAttending: As [...] am.Khadar Duffy MDFebruary 2017 12:27 PM Normal [facility] Phosphoruson 08-20-2017 Phosphate 2.9 mg/dL Normal 2.5-4.5 [facility] Comment on above: Performed By: #### C BC, CMP, MG1, PHOS ####[facility] [place], [place] [phone] ANES Ila 08-19-2017 ANES POST HNO ID: [id number] thor: Craig Hopkins: AnesthesiologyAuthopatrice Type: AnesthesiologistType: Anesthesia PostOpFiled: 08/19/2017 4:21 PMNote [...] Remarks:SIGNATURE: Craig Jean MD PATIENT NAME: Rocio FrischDATE: August 19, 2017 : 4:20 PM PAGER/CONTACT #: [facility] ANES PREOPon 08-19-2017 ANES PREOP HNO ID: [id number] thor: Brian Gannonice: AnesthesiologyAuthopatrice Type: AnesthesiologistType: Anesthesia PreOpFiled: 08/19/2017 6:27 PMNote Text:REGIONAL ANESTHESIOLOGY DAY OF SURGERY NOTEPATIENT NAME: Rocio Boudreaux: [id number]: 1955Procedure(s) (LRB):ANESTHESIA FOR NON-INVASIVE IMAGING OR RADIATION [...] Date- ANGIOPLASTY HX 05/15/2011 2 stents s/p [place];[facility]- CHOLECYSTECTOMY 08/11/2017 [facility]- PICC LINE INSERT/CONSULT 08/16/2017No family history on file.Social History:Social HistorySubstance Use Topics- Smoking status: Former Smoker Types: Cigarettes Quit date: 2010- Smokeless tobacco: Never Used- Alcohol use 1.5 oz/week 1 Cans of Beer (12oz) per week Comment: occasional beerNo current facility-administered medications on file prior to encounter.No current outpatient prescriptions on file prior to encounter.Inpatient medications reviewed in [employer].I have interviewed and examined the patient. I have reviewed the medicalrecord and/or the pre-anesthesia evaluation, pertinent labs, and testresults.Significant changes in the patient's condition since the History andPhysical, not otherwise documented in primary service progress notes: NoThis contains updated information obtained within 48 hours ofSurgery/Procedure.SIGNATUR E: Brian Orona MD PATIENT NAME: Rocio JacksonDATE: August 19, 2017 : 1220 PAGER/CONTACT #: [phone] (pager) [facility] BRIEF OP NOTon 08-19-2017 BRIEF OP NOT HNO ID: [id number] thor: Vanessa Dickson: RadiologyAuthor Type: PhysicianType: Brief Op NoteFiled: 08/19/2017 2:57 PMNote Text:BRIEF OPERATIVE / PROCEDURE NOTESurgery/Procedure Date: 08/19/17Incision/Procedure Start Time:Incision Close/Procedure End Time:Surgeon(s)/Proceduralis t(s) and Theology Professor(s):Dusty Garcia - PrimaryProcedure(s): R PTHC and Int/Ext biliary drainAnesthesia: GeneralFindings: Mildly dilated IH ducts. NO filling defects. Severe D2-3strictureEstimated Blood Loss: MinimalSpecimens: NoneComplications: NonePre-Op/Pre-Procedure Diagnosis: Duodenal massPost-Op/Post-Procedure Diagnosis: SameSIGNATURE: Vanessa Garcia MD PATIENT NAME: Rocio Sibley: August 19, 2017 : 2:56 PM PAGER/CONTACT #: Normal [facility] CBCon 08-19-2017 Erythrocyte distribution width Auto Ratio (RBC) 15.4 % High 11.5-15.0 [facility] Comment on above: Performed By: #### C BC, CMP, MG1, PHOS ####[place] [phone] Erythrocytes (RBC) 3.17 10*6/uL Low 4.20-6.00 [facility] Comment on above: Performed By: #### C BC, CMP, MG1, PHOS ####[place] [phone] Hematocrit (HCT) 27.7 % Low 39.0-51.0 [facility] Comment on above: Performed By: #### C BC, CMP, MG1, PHOS ####[place] [phone] Hemoglobin mass conc (Bld) 8.8 g/dL Low 13.0-17.0 [facility] Comment on above: Performed By: #### C BC, CMP, MG1, PHOS ####[place] [phone] MCH 27.8 pG Normal 26.0-34.0 [facility] Comment on above: Performed By: #### C BC, CMP, MG1, PHOS ####[place] [phone] MCHC mass conc (RBC) 31.8 g/dL Normal 30.5-36.0 [facility] Comment on above: Performed By: #### C BC, CMP, MG1, PHOS ####[place] [phone] MCV 87.4 fL Normal 80.0-100.0 [facility] Comment on above: Performed By: #### C BC, CMP, MG1, PHOS ####[address] Platelet mean volume (PMV) 9.7 fL Normal 9.0-12.7 [facility] Comment on above: Performed By: #### C BC, CMP, MG1, PHOS ####[place] [address] Platelets 344 10*3/uL Normal 150-400 [facility] Comment on above: Performed By: #### C BC, CMP, MG1, PHOS ####[address] WBC (Leukocytes) 6.57 10*3/uL Normal 3.70-11.00 [facility] Comment on above: Performed By: #### C BC, CMP, MG1, PHOS ####[address] Comp Metabolic Panelon 08-19 Alanine aminotransferase (ALT) 53 U/L High 5-50 [facility] Comment on above: Performed By: #### C BC, CMP, MG1, PHOS ####[place] [phone] Albumin 2.5 g/dL Low 3.5-5.0 [facility] Comment on above: Performed By: #### C BC, CMP, MG1, PHOS ####[place] [address] Alkaline phosphatase (ALP) 249 U/L High 40-150 [facility] Comment on above: Performed By: #### C BC, CMP, MG1, PHOS ####[address] Anion gap 11 mmol/L Normal 9-18 [facility] Comment on above: Performed By: #### C BC, CMP, MG1, PHOS ####[place] [phone] Aspartate aminotransferase (AST) 27 U/L Normal 7-40 [facility] Comment on above: Performed By: #### C BC, CMP, MG1, PHOS ####[place] [address] Bilirubin (total) 0.9 mg/dL Normal 0.0-1.5 [facility] Comment on above: Performed By: #### C BC, CMP, MG1, PHOS ####[place] [address] Calcium 7.6 mg/dL Low 8.5-10.5 [facility] Comment on above: Performed By: #### C BC, CMP, MG1, PHOS ####[place] [address] Chloride 108 mmol/L Normal 98-110 [facility] Comment on above: Performed By: #### C BC, CMP, MG1, PHOS ####[address] CO2 23 mmol/L Normal 23-32 [facility] Comment on above: Performed By: #### C BC, CMP, MG1, PHOS ####[address] Creatinine 0.58 mg/dL Low 0.70-1.40 [facility] Comment on above: Performed By: #### C BC, CMP, MG1, PHOS ####[address] eGFR (non-black) mL/min/{1.73_m2} Normal >60 [facility] Comment on above: Performed By: #### C BC, CMP, MG1, PHOS ####[address] Glucose mass conc 144 mg/dL High 65-100 [facility] Comment on above: Performed By: #### C BC, CMP, MG1, PHOS ####[phone] Potassium molar conc 3.4 mmol/L Low 3.5-5.0 [facility] Comment on above: Performed By: #### C BC, CMP, MG1, PHOS ####[place] [address] [place], [place] [phone] Protein 5.6 g/dL Low 6.0-8.4 [facility] Comment on above: Performed By: #### C BC, CMP, MG1, PHOS ####[place] [address] [place], [place] [phone] Sodium 142 mmol/L Normal 135-146 [facility] Comment on above: Performed By: #### C BC CMP, MG1, PHOS ####[place] [address] [place], [place] [phone] Urea nitrogen 7 mg/dL Low 10-25 [facility] Comment on above: Performed By: #### Abeba CRUZ, CMP, MG1, PHOS ####[place] [address] [place], [place] [phone] CATH BILI DRAIN INT -EXTon [...] Air Kerma: 1529.0 mGyDose Area Product (DAP): 635819.0 mGy*fu3Oachpo Time: 46:36 min:secRadiation dose exceed 5 Gy: [...] guidance. The access was exchanged for an Alavrez Set dilator. Using a 4 Albanian Kumpe catheter in conjunction with a glide wire, access was obtained into the small bowel. Despite multiple attempts with multiple wires and catheters, the duodenal stricture could not be passed via the [facility] access. Over an Amplatz super stiff guide [...] cm internal external biliary drainage catheter, with Hunters loop in small bowel and proximal sideholes [...] Specimens: 0: Surgical pathologyATTENDING RADIOLOGIST: Dusty Garcia M.D.PRODUCTION LINE SOLDERER: NoneThe procedure was performed by the:attending radiologist, without an licensed investment sales assistant.The attending radiologist performed the following procedural activities: Entire procedure.IMPRESSION:SUCCESS FUL PTHC AND INTERNAL/EXTERNAL BILIARY DRAIN PLACEMENT FROM RIGHT-SIDED APPROACH.CHOLANGIOGRAM DEMONSTRATING MODERATE INTRA AND EXTRA HEPATIC BILIARY DILATION.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.THE PATIENT MAY RETURN IN 8 WEEKS FOR ROUTINE CATHETER CHANGE IF LONG-TERM PERCUTANEOUS ACCESS IS REQUIRED.Medical Historian: NII Transcribe Date/Time: Aug 19 2017 3:26PDictated by : VANESSA GARCIA MDThis examination was interpreted and the report reviewed and electronically signed by: VANESSA GARCIA MD on Aug 21 2017 3:05PM EST Normal [facility] Magnesiumon 08-19-2017 Magnesium 2.2 mg/dL Normal 1.7-2.6 [facility] Comment on above: Performed By: #### C BC, CMP, MG1, PHOS ####[facility] [place], [place] [phone] NURSING PROGon 08-19-2017 NURSING PROG HNO ID: [id number] thor: Shavonne (Rn) [place], RNService: NursingAuthor Type: Registered NurseType: Nursing Progress NoteFiled: 08/19/2017 5:27 PMNote Text: Nursing Progress NotePatient Name: Rociomarisa HayesN: [id number] Location: [place] [address]/[id number] ____Pt returned from PACU in stable condition. Right lateral lower quadrantdrain patent, draining brown, bilious fluid. A+Ox3, speech clear.Medicated for c/o generalized pain. Glucose 112. NPO order continued,green surgical team paged for updated orders.This note was completed by: Shavonne Mays RN [facility] NURSING PROG HNO ID: [id number] Author: Paty (Rn) KEVIN Cardoza Service: Nursing Author Type: Registered Nurse Type: Nursing Progress Note Filed: 08/19/2017 3:26 PM Note Text: Biliary tube that is the latest tube draining baldwin and rust colored.} [facility] NURSING PROG HNO ID: [id number] thor: Latanya (Rn) MOUSTAPHA Larsenervice: RadiologyAuthor Type: Registered NurseType: Nursing Progress NoteFiled: 08/19/2017 11:47 AMNote Text:PATIENT EDUCATION TOPIC: PROCEDURE / SURGERY: Procedure/Surgery: PTHCPATIENT NAME: Rocio Boudreaux: [id number] LOCATION: [place] [address]/[id number] S TO LEARNCOGNITIVE ABILITY: Alert and orientedMOTIVATION TO LEARN: EagerInterestedFAMILY SUPPORT: Unable to assess - Family not presentINSTRUCTION PROVIDED TO: PatientPATIENT LEARNS BEST BY: Individual InstructionWritten Instruction - Hand-outsVerbal InstructionFACTORS AFFECTING LEARNING: NonePHYSICAL LIMITATIONS AFFECTING LEARNING: NoneLEARNING RESPONSEDIAGNOSIS: ADULT: Duodenal massPATIENT/FAMILY RESPONSE: Verbalizes understanding of: NEGX-[id number]-R orrect actions to take to reduce post procedurecomplicationsPRE-[place] OCEDURE INSTRUCTIONS-Correct action to take to follow pre-procedureinstructionsMET HOD OF INSTRUCTION: Individual instructionWritten instruction - handoutsVerbal instructionFOLLOW-UP PLAN: Follow-up with Primary CareINSTRUCTIONAL AIDS USED: NASUPPLEMENTAL MATERIAL PROVIDED TO PATIENT: NoneREFERRAL (RECOMMENDATION): NoneElectronically Signed By: Latanya Larsen, RN [facility] NURSING PROG HNO ID: [id number] thor: Jennifer Humphries (Rn) Eleanor, RNService: (none)Author Type: Registered NurseType: Nursing Progress NoteFiled: 08/19/2017 3:24 AMNote Text: Nursing Progress NotePatient Name: Rocio JacksonMRN: [id number] Location: [place] [address]/OI-[id number] ____ Pt with mild abd pain of 3 or less tonight. Tylenol controlling. Ptaware if needed may have pain pills. Accordian drain flushed at 2100 perorder for positive return of sterile NS and brown liquid.This note was completed by: Jennifer Webster, KEVIN [facility] NUTRITIONon 08-19-2017 NUTRITION HNO ID: [id number] thor: Alise Segura) BarsaService: Nutrition TherapyAuthor Type: [...] 87 kgResting Metabolic Rate: 1661Estimated kilocalorie needs: 8106-2889 kilocalories determined by 25-28kcal/kgEstimated protein needs:113 - [...] kg (192 lb) SpO2 98% BMI 29.19 kg/t4Zddftb Labs [id number] 144*BUN 7*CREAT 0.58*NA 142K 3.4*CHLOR 108CO2 23ALB [...] 5,000 Units SUBCUTANEOUS q 8 Hphenol 1 Hodges (CHLORASEPTIC) 1 Hodges MUCOUS MEMBRANE (TOPICAL MOUTH ANDTHROAT) q 2 [...] 0659 08/18/17 07 - 08/19/17 0659 08/19/17 0700 -08/20/17 0659 [...] assistance and weekends please page theGroup Pager [phone] [facility] PROGRESSon 08-19-2017 PROGRESS HNO ID: [id number] thor: Khadar DuffyService: General SurgeryAuthor Type: PhysicianType: [...] enteral feeds.Khadar Duffy MDFebruary 2017 9:56 PM [facility] Phosphoruson 08-19-2017 Phosphate 1.9 mg/dL Low 2.5-4.5 [facility] Comment on above: Performed By: #### C BC, CMP, MG1, PHOS ####[facility] [place], [place] [phone] CASE MANAGEMon 08-18-2017 CASE MANAGEM HNO ID: [id number] thor: Alexandrea (Rn) MOUSTAPHA Tomaservice: Care ManagementAuthor Type: Registered NurseType: Care Mgt Progress NoteFiled: 08/18/2017 2:30 PMNote Text:MULTIDISCIPLINARY ROUNDSSERVICE DATE: 08/18/2017 ADMISSION DATE: 08/13/2017SERVICE TIME: 2:27 PM ANTICIPATED D/C DATE: 1-3 daysProblem List:ACTIVE PROBLEM LISTDuodenal ObstructionSevere Protein-Calorie Malnutrition (Hcc)Attendees Present at Rounds:[employer] Worker: Roderick Nurse: Laura Discussed on Rounds:Discharge NeedsPlan [...] Tomas RN PATIENT NAME: Rocio JacksonDATE: August 18, 2017 : 2:27 PM CSN: [id number] Normal [facility] CBCon 08-18-2017 Erythrocyte distribution width Auto Ratio (RBC) 15.7 % High 11.5-15.0 [facility] Comment on above: Performed By: #### P T, PTT, AMYL, CMP, LIPA, PHOS ####[facility] [place], [place] [phone]#### TRANSF ####[facility] [place], [place] [phone] Erythrocytes (RBC) 3.08 10*6/uL Low 4.20-6.00 [facility] Comment on above: Performed By: #### P T, PTT, AMYL, CMP, LIPA, PHOS ####[place] [address]#### TRANSF ####[place] [address] Hematocrit (HCT) 26.6 % Low 39.0-51.0 [facility] Comment on above: Performed By: #### P T, PTT, AMYL, CMP, LIPA, PHOS ####[place] [address]#### TRANSF ####[place] [address] Hemoglobin mass conc (Bld) 8.6 g/dL Low 13.0-17.0 [facility] Comment on above: Performed By: #### P T, PTT, AMYL, CMP, LIPA, PHOS ####[place] [address]#### TRANSF ####[place] [address] MCH 27.9 pG Normal 26.0-34.0 [facility] Comment on above: Performed By: #### P T, PTT, AMYL, CMP, LIPA, PHOS ####[place] [address]#### TRANSF ####[place] [address] MCHC mass conc (RBC) 32.3 g/dL Normal 30.5-36.0 [facility] Comment on above: Performed By: #### P T, PTT, AMYL, CMP, LIPA, PHOS ####[place] [address]#### TRANSF ####[place] [address] MCV 86.4 fL Normal 80.0-100.0 [facility] Comment on above: Performed By: #### P T, PTT, AMYL, CMP, LIPA, PHOS ####[place] [address]#### TRANSF ####[place] [phone] Platelet mean volume (PMV) 10.2 fL Normal 9.0-12.7 [facility] Comment on above: Performed By: #### P T, PTT, AMYL, CMP, LIPA, PHOS ####[place] [address]#### TRANSF ####[place] [address] Platelets 310 10*3/uL Normal 150-400 [facility] Comment on above: Performed By: #### P T, PTT, AMYL, CMP, LIPA, PHOS ####[place] [address]#### TRANSF ####[place] [address] WBC (Leukocytes) 4.87 10*3/uL Normal 3.70-11.00 [facility] Comment on above: Performed By: #### P T, PTT, AMYL, CMP, LIPA, PHOS ####[place] [address]#### TRANSF ####[phone] CONSULT PROGon 08-18-2017 CONSULT PROG HNO ID: [id number] thor: Linda (Griselda) Tonye: GastroenterologyAuthor Type: Nurse PractitionerType: Consult Progress NoteFiled: 08/18/2017 1:23 PMNote Text:CONSULT PROGRESS NOTESERVICE DATE: 08/18/2017SERVICE TIME: 1:20 PMCONSULTING SERVICE: GISubjectiveINTERVAL HPI: No acute events overnight. 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 Jackson is a 62 year old male [...] tube placement for feeding-continue to followLinda Avalos CNPSioux City GastroenterologyThank you for allowing us to participate in the care of this patient.Please call with questions or concerns.SIGNATURE: Linda Avalos CNP PATIENT NAME: Rocio FrischDATE: August 18, 2017 : 1:20 PM PAGER: [phone] Normal [facility] Comp Metabolic Panelon 08-18 Alanine aminotransferase (ALT) 66 U/L High 5-50 [facility] Comment on above: Performed By: #### P T, PTT, AMYL, CMP, LIPA, PHOS ####[place] [address]#### TRANSF ####[place] [phone] Albumin 2.3 g/dL Low 3.5-5.0 [facility] Comment on above: Performed By: #### P T, PTT, AMYL, CMP, LIPA, PHOS ####[place] [address]#### TRANSF ####[place] [phone] Alkaline phosphatase (ALP) 261 U/L High 40-150 [facility] Comment on above: Performed By: #### P T, PTT, AMYL, CMP, LIPA, PHOS ####[place] [address]#### TRANSF ####[place] [address] Anion gap 8 mmol/L Low 9-18 [facility] Comment on above: Performed By: #### P T, PTT, AMYL, CMP, LIPA, PHOS ####[place] [address]#### TRANSF ####[place] [address] Aspartate aminotransferase (AST) 32 U/L Normal 7-40 [facility] Comment on above: Performed By: #### P T, PTT, AMYL, CMP, LIPA, PHOS ####[place] [address]#### TRANSF ####[place] [address] Bilirubin (total) 0.9 mg/dL Normal 0.0-1.5 [facility] Comment on above: Performed By: #### P T, PTT, AMYL, CMP, LIPA, PHOS ####[place] [address]#### TRANSF ####[place] [address] Calcium 7.2 mg/dL Low 8.5-10.5 [facility] Comment on above: Result Comment: Revi ewed Performed By: #### P T, PTT, AMYL, CMP, LIPA, PHOS ####[place] [address]#### TRANSF ####[place] [address] Chloride 112 mmol/L High 98-110 [facility] Comment on above: Performed By: #### P T, PTT, AMYL, CMP, LIPA, PHOS ####[place] [address]#### TRANSF ####[place] [address] CO2 28 mmol/L Normal 23-32 [facility] Comment on above: Performed By: #### P T, PTT, AMYL, CMP, LIPA, PHOS ####[place] [address]#### TRANSF ####[place] [address] Creatinine 0.71 mg/dL Normal 0.70-1.40 [facility] Comment on above: Performed By: #### P T, PTT, AMYL, CMP, LIPA, PHOS ####[place] [address]#### TRANSF ####[place] [address] eGFR (non-black) mL/min/{1.73_m2} Normal >60 [facility] Comment on above: Performed By: #### P T, PTT, AMYL, CMP, LIPA, PHOS ####[place] [address]#### TRANSF ####[place] [address] Glucose mass conc 160 mg/dL High 65-100 [facility] Comment on above: Performed By: #### P T, PTT, AMYL, CMP, LIPA, PHOS ####[place] [address]#### TRANSF ####[place] [address] Potassium molar conc 3.9 mmol/L Normal 3.5-5.0 [facility] Comment on above: Result Comment: Revi ewed Performed By: #### P T, PTT, AMYL, CMP, LIPA, PHOS ####[place] [address]#### TRANSF ####[place] [address] Protein 5.5 g/dL Low 6.0-8.4 [facility] Comment on above: Performed By: #### P T, PTT, AMYL, CMP, LIPA, PHOS ####[place] [address]#### TRANSF ####[place] [address] Sodium 148 mmol/L High 135-146 [facility] Comment on above: Performed By: #### P T, PTT, AMYL, CMP, LIPA, PHOS ####[place] [address]#### TRANSF ####[place] [address] Urea nitrogen 13 mg/dL Normal 10-25 [facility] Comment on above: Performed By: #### P T, PTT, AMYL, CMP, LIPA, PHOS ####[place] [address]#### TRANSF ####[place] [address] Magnesiumon 08-18-2017 Magnesium 2.1 mg/dL Normal 1.7-2.6 [facility] Comment on above: Performed By: #### P T, PTT, AMYL, CMP, LIPA, PHOS ####[place] [address]#### TRANSF ####[place] [address] NUTRITIONon 08-18-2017 NUTRITION HNO ID: [id number] thor: Alise CisnerosaService: Nutrition TherapyAuthor Type: Registered DietitianType: NutritionFiled: 08/18/2017 1:39 PMNote Text:NUTRITION THERAPY PROGRESS NOTESERVICE DATE: 08/18/2017SERVICE TIME: 1:24 PMRECOMMENDED DIAGNOSIS: SEVERE PROTEIN-CALORIE MALNUTRITION per RegisteredDietitian on 08/14NUTRITION CARE PLANIntervention:Diet NPOAdvance to clearsMonitor and Evaluation:Goal: Meet >75% of estimated needsMonitor fluid/electrolyte balanceMonitor labs, I/Os, vital signs, weightDischarge Nutrition Recommendations:To be haycokwkgw26 year old male with a history notable [...] acting) (HumaLOG) SUBCUTANEOUS w MEALSAND HSphenol 1 Hodges (CHLORASEPTIC) 1 Hodges MUCOUS MEMBRANE (TOPICAL MOUTH ANDTHROAT) q 2 [...] 08/15/17 0659 08/15/17 0700 - 08/16/17 0659 [id number] - 08/17/17 0659 08/17/17 0700 - 08/18/17 [...] assistance and weekends please page theGroup Pager -[phone] [facility] PROGRESSon 08-18-2017 PROGRESS HNO ID: [id number] thor: Khadar Guo: General SurgeryAuthor Type: PhysicianType: Progress NotesFiled: 08/18/2017 6:11 PMNote Text:PROGRESS NOTES - SURGICAL SERVICESPATIENT NAME: Rocio JacksonMRN: [id number] HISTORY OF PRESENT ILLNESS:No acute events overnight. [...] surgical care: EVERETT RODRIGUEZ MD (Res)General SurgeryPager: [phone]*On weekends or nights (after 1800) please contact [...] understand.Khadar Duffy MDFebruary 2017 6:11 PM Normal [facility] Phosphoruson 08-18-2017 Phosphate 2.2 mg/dL Low 2.5-4.5 [facility] Comment on above: Performed By: #### P T, PTT, AMYL, CMP, LIPA, PHOS ####[facility] [place], [place] [phone]#### TRANSF ####[facility] [address] [place], [place] [phone] ANES Ila 08-17-2017 ANES POST HNO ID: [id number] thor: Reba ValleService: AnesthesiologyAuthor Type: AnesthesiologistType: Anesthesia PostOpFiled: 08/17/2017 5:41 PMNote Text:POST ANESTHESIA EVALUATION NOTESERVICE DATE: 08/17/2017SERVICE TIME: 1741DOB: 1955Vitals: 02/19/620163 02/19/832092 02/19/711850 02/19/458555Ezzh: 37 ?C (98.6 ?F) 37.1 ?C (98.8 [...] 17, 2017 : 5:41 PM PAGER/CONTACT #: [facility] ANES PREOPon 08-17-2017 ANES PREOP HNO ID: [id number] thor: Reba ValleService: AnesthesiologyAuthor Type: AnesthesiologistType: Anesthesia PreOpFiled: 08/17/2017 3:21 PMNote Text:REGIONAL ANESTHESIOLOGY DAY OF SURGERY NOTEPATIENT NAME: Rocio JacksonMRN: [id number]: 1955Procedure(s) (LRB):ERCP (N/A)Surgeon(s):Srinath NavaEstimated body mass index [...] Date- ANGIOPLASTY HX 05/15/2011 2 stents s[place]p [place];[facility]- CHOLECYSTECTOMY 08/11/2017 [facility]- PICC LINE INSERT/CONSULT 08/16/2017No family history on file.Social History:Social HistorySubstance Use Topics- Smoking status: Former Smoker Types: Cigarettes Quit date: 2010- Smokeless tobacco: Never Used- Alcohol use 1.5 oz/week 1 Cans of Beer (12oz) per week Comment: occasional beerNo current facility-administered medications on file prior to encounter.No current outpatient prescriptions on file prior to encounter.Inpatient medications reviewed in [facility].I have interviewed and examined the patient. I have reviewed the medicalrecord and/or the pre-anesthesia evaluation, pertinent labs, and testresults.Significant changes in the patient's condition since the History andPhysical, not otherwise documented in primary service progress notes: NoThis contains updated information obtained within 48 hours ofSurgery/Procedure.SIGNATUR E: Reba Valle MD PATIENT NAME: Rocio VizcarraTE: August 17, 2017 : 3:20 PM PAGER/CONTACT #: Normal [facility] BRIEF OP NOTon 08-17-2017 BRIEF OP NOT HNO ID: [id number] thor: Srinath NavaSerkalliee: GastroenterologyAuthor Type: PhysicianType: Brief Op NoteFiled: 08/17/2017 5:07 PMNote Text:Please see procedure report under procedure tabIMP:Duodenal mass, malignant with D2 stenosis involving area of papillaS/P dilation to 15mm balloonRecs:Clear liquid diet, may consider EGD assisted duodenal tube placement forfeedingUnable to cannulate due to sharp angulation, can have PTC with exchange tointernal endoscopically Normal [facility] CASE MGT INIT [facility] 2017 CASE MGT INIT [facility] HNO ID: [id number] thor: Alexandrea (Rn) MOUSTAPHA Tomaservice: Care ManagementAuthor Type: Registered NurseType: Care Mgt Initial AssessmentFiled: 08/17/2017 2:14 PMNote Text:CARE MANAGEMENT: ASSESSMENT AND DISCHARGE PLANSERVICE DATE: 08/17/2017SERVICE TIME: 2:11 PMPRIMARY CARE PHYSICIAN:No primary care provider on file.Phone: NoneADMISSION STATUS: InpatientPOTENTIAL DISCHARGE PLANSTo Be DeterminedPatient/Representa tive Stated Goals: I am having a test this afternoon.Needs Prior to Discharge: To Be DeterminedHealth Insurance: United Health CareLiving Arrangement: HomeLives With: 2 adult childrenFinancial Resources: N/APrimary Contact:Extended Emergency Contact InformationPrimary Emergency Contact: Owen Muller: [place], [place] [address]Tnff Bzczhlsg: SiblingSupportive: YesOther Important Patient Contacts: NoneCAREGIVER ASSESSMENT:Caregiver [...] days? NoHas the Patient Been in a Alf Facility in the Past 30 days? NoFREEDOM OF CHOICE EXPLAINED:N/AHANDOFF COMMUNICATION:Poncho CM met with pt at bedside [...] 17, 2017 : 2:07 PM PAGER/CONTACT #: [phone] Normal [facility] CBCon 08-17-2017 Erythrocyte distribution width Auto Ratio (RBC) 15.5 % High 11.5-15.0 [facility] Comment on above: Performed By: #### P T, PTT, AMYL, CMP, LIPA, PHOS ####[place] [address]#### TRANSF ####[place] [address] Erythrocytes (RBC) 3.18 10*6/uL Low 4.20-6.00 [facility] Comment on above: Performed By: #### P T, PTT, AMYL, CMP, LIPA, PHOS ####[place] [address]#### TRANSF ####[place] [address] Hematocrit (HCT) 27.4 % Low 39.0-51.0 [facility] Comment on above: Performed By: #### P T, PTT, AMYL, CMP, LIPA, PHOS ####[place] [address]#### TRANSF ####[place] [phone] Hemoglobin mass conc (Bld) 9.1 g/dL Low 13.0-17.0 [facility] Comment on above: Performed By: #### P T, PTT, AMYL, CMP, LIPA, PHOS ####[place] [address]#### TRANSF ####[place] [address] MCH 28.6 pG Normal 26.0-34.0 [facility] Comment on above: Performed By: #### P T, PTT, AMYL, CMP, LIPA, PHOS ####[place] [address]#### TRANSF ####[place] [address] MCHC mass conc (RBC) 33.2 g/dL Normal 30.5-36.0 [facility] Comment on above: Performed By: #### P T, PTT, AMYL, CMP, LIPA, PHOS ####[place] [address]#### TRANSF ####[place] [address] MCV 86.2 fL Normal 80.0-100.0 [facility] Comment on above: Performed By: #### P T, PTT, AMYL, CMP, LIPA, PHOS ####[place] [address]#### TRANSF ####[place] [address] Platelet mean volume (PMV) 10.0 fL Normal 9.0-12.7 [facility] Comment on above: Performed By: #### P T, PTT, AMYL, CMP, LIPA, PHOS ####[place] [address]#### TRANSF ####[place] [phone] Platelets 319 10*3/uL Normal 150-400 [facility] Comment on above: Performed By: #### P T, PTT, AMYL, CMP, LIPA, PHOS ####[place] [address] [place], [place] [phone]#### TRANSF ####[facility] [place], [place] [phone] WBC (Leukocytes) 7.02 10*3/uL Normal 3.70-11.00 [facility] Comment on above: Performed By: #### P T, PTT, AMYL, CMP, LIPA, PHOS ####[place] [address] [place], [place] [phone]#### TRANSF ####[address] [phone] CONSULT PROGon 08-17-2017 CONSULT PROG HNO ID: [id number] thor: Jessee Lottervice: Cardiovascular DiseaseAuthor Type: PhysicianType: Consult Progress NoteFiled: 08/18/2017 10:29 PMNote Text:PROGRESS NOTE CARDIOLOGY SERVICESERVICE DATE: August 17, 2017SERVICE TIME: 12:48 PMASSESSMENT/PLANActive Problems:Atrial fibrillation. Persistent AF, ventricular rates +/- 100Heparin infusion is off. Inr was elevated, received vitamin K prior toprocedure. Today 1.0.s/p ERCP yesterdayPlan:Continue metoprolol.Spoke to surgical FRIED CAKE MAKER Boubacar Espinoza. ->kimberley is for PTHC tomorrow.Will [...] edema.PULSES: Peripheral pulses present.MEDICATIONS:Current Facility-Administered Medications:phenol 1 Hodges (CHLORASEPTIC) 1 Hodges MUCOUS MEMBRANE (TOPICAL MOUTH ANDTHROAT) q 2 [...] Hour Labs:CBC, Coags, BMP, Mg, PhosRecent Labs 08/17/180717/652529ZJI 4.87 -- 7.02 11.42* 12.79*HB 8.6* -- [...] EnzymesSIGNATURE: Sabrina Arango CNP PATIENT NAME: Rocio JacksonDATE: August 17, 2017 : 12:48 PM PAGER/CONTACT #: Normal [facility] Comp Metabolic Panelon 08-17 Alanine aminotransferase (ALT) 90 U/L High 5-50 [facility] Comment on above: Performed By: #### P T, PTT, AMYL, CMP, LIPA, PHOS ####[facility] [place], [place] [phone]#### TRANSF ####[facility] [place], [place] [phone] Albumin 2.5 g/dL Low 3.5-5.0 [facility] Comment on above: Performed By: #### P T, PTT, AMYL, CMP, LIPA, PHOS ####[place] [address]#### TRANSF ####[place] [address] Alkaline phosphatase (ALP) 304 U/L High 40-150 [facility] Comment on above: Performed By: #### P T, PTT, AMYL, CMP, LIPA, PHOS ####[place] [address]#### TRANSF ####[place] [address] Anion gap 12 mmol/L Normal 9-18 [facility] Comment on above: Performed By: #### P T, PTT, AMYL, CMP, LIPA, PHOS ####[place] [address]#### TRANSF ####[place] [address] Aspartate aminotransferase (AST) 36 U/L Normal 7-40 [facility] Comment on above: Performed By: #### P T, PTT, AMYL, CMP, LIPA, PHOS ####[place] [address]#### TRANSF ####[place] [address] Bilirubin (total) 1.1 mg/dL Normal 0.0-1.5 [facility] Comment on above: Performed By: #### P T, PTT, AMYL, CMP, LIPA, PHOS ####[place] [address]#### TRANSF ####[place] [address] Calcium 8.2 mg/dL Low 8.5-10.5 [facility] Comment on above: Performed By: #### P T, PTT, AMYL, CMP, LIPA, PHOS ####[place] [address]#### TRANSF ####[place] [address] Chloride 110 mmol/L Normal 98-110 [facility] Comment on above: Result Comment: Revi ewed Performed By: #### P T, PTT, AMYL, CMP, LIPA, PHOS ####[place] [address]#### TRANSF ####[place] [address] CO2 26 mmol/L Normal 23-32 [facility] Comment on above: Performed By: #### P T, PTT, AMYL, CMP, LIPA, PHOS ####[place] [address]#### TRANSF ####[place] [address] Creatinine 0.68 mg/dL Low 0.70-1.40 [facility] Comment on above: Performed By: #### P T, PTT, AMYL, CMP, LIPA, PHOS ####[place] [address]#### TRANSF ####[place] [address] eGFR (non-black) mL/min/{1.73_m2} Normal >60 [facility] Comment on above: Performed By: #### P T, PTT, AMYL, CMP, LIPA, PHOS ####[place] [address]#### TRANSF ####[place] [address] Glucose mass conc 158 mg/dL High 65-100 [facility] Comment on above: Performed By: #### P T, PTT, AMYL, CMP, LIPA, PHOS ####[place] [address]#### TRANSF ####[place] [address] Potassium molar conc 3.2 mmol/L Low 3.5-5.0 [facility] Comment on above: Performed By: #### P T, PTT, AMYL, CMP, LIPA, PHOS ####[place] [address]#### TRANSF ####[place] [address] Protein 6.1 g/dL Normal 6.0-8.4 [facility] Comment on above: Performed By: #### P T, PTT, AMYL, CMP, LIPA, PHOS ####[place] [address]#### TRANSF ####[place] [address] Sodium 148 mmol/L High 135-146 [facility] Comment on above: Result Comment: Norma sumner Performed By: #### P T, PTT, AMYL, CMP, LIPA, PHOS ####[place] [address]#### TRANSF ####[place] [address] Urea nitrogen 14 mg/dL Normal 10-25 [facility] Comment on above: Performed By: #### P T, PTT, AMYL, CMP, LIPA, PHOS ####[place] [address]#### TRANSF ####[place] [address] Magnesiumon 08-17-2017 Magnesium 2.4 mg/dL Normal 1.7-2.6 [facility] Comment on above: Performed By: #### P T, PTT, AMYL, CMP, LIPA, PHOS ####[facility] [place], [place] [phone]#### TRANSF ####[facility] [address] [place], [place] [phone] NUTRITIONon 08-17-2017 NUTRITION HNO ID: [id number] thor: Alise Segura) BarsaService: Nutrition TherapyAuthor Type: [...] 87 kgResting Metabolic Rate: 1661Estimated kilocalorie needs: 9736-2053 kilocalories determined by 25-28kcal/kgEstimated protein needs:113 - 130 grams determined by 1.3-1.5 g/kg DosingweightEstimated fluid needs: 2200 - 2400 milliliters based on 1 mL per kcalAdmission Weight: 87.4 kg (192 lb 9.6 oz)Current Weight: 87.4 kg (192 lb 9.6 oz)Body mass index is 29.28 kg/(m2). overweightALLERGIESNo Known AllergiesCurrent Facility-Administered Medications:phenol 1 Hodges (CHLORASEPTIC) 1 Hodges MUCOUS MEMBRANE (TOPICAL MOUTH ANDTHROAT) q 2 [...] 08/14/17 0659 08/14/17 0700 - 08/15/17 0659 700 - 08/16/17 0659 08/16/17 07 - 08/17/17 [...] assistance and weekends please page theGroup Pager -[phone] [facility] PROGRESSon 08-17-2017 PROGRESS HNO ID: [id number] thor: Khadar Guo: General SurgeryAuthor Type: PhysicianType: Progress NotesFiled: 08/17/2017 2:42 PMNote Text:PROGRESS NOTES - SURGICAL SERVICESPATIENT NAME: Rocio JacksonMRN: [id number] HISTORY OF PRESENT ILLNESS:No acute events overnight. [...] distended.CBC, Coags, BMP, Mg, PhosRecent Labs 7 08/15/18206WBC 7.02 11.42* 12.79* 16.33*HB 9.1* 9.8* 9.7* [...] Prophylaxis: SCDs-Routine surgical care: IS, OOBSIGNATURE: Kayleen Gonzales MDDATE: August 17, 2017TIME: 8:15 AMAtt: As above. Await results of ERCP. Clinically improved.Khadar Duffy MDFebruary 2017 2:42 PM Normal [facility] Phosphoruson 08-17-2017 Phosphate 2.3 mg/dL Low 2.5-4.5 [facility] Comment on above: Performed By: #### P T, PTT, AMYL, CMP, LIPA, PHOS ####[facility] [place], [place] [phone]#### TRANSF ####[facility] [address] [place], [place] [phone] Protimeon 08-17-2017 INR Coag RelTime (Bld) 1.0 {INR} Normal 0.9-1.3 [facility] Comment on above: Result Comment: Tayler min K Antagonist (VKA) Therapeutic Range: INR 2 to 3 (Target INR of 2.5)Note: For patients treated with VKA drugs, such as warfarin, the [place] [employer] 2012 Guideline recommends [...] al. Chest 2012, 141:7S-47SNishneto RA, et al. [facility] 2017, 70: 252-289 Performed By: #### P T, PTT, AMYL, CMP, LIPA, PHOS ####[address] [phone]#### TRANSF ####[facility] [place], [place] [phone] PT Sec 10.6 sec Normal 9.7-13.0 [facility] Comment on above: Performed By: #### P T, PTT, AMYL, CMP, LIPA, PHOS ####[address] [phone]#### TRANSF ####[address] [phone] XR ERCP READ ONLYon 08-17-19 18 XR [...] Kerma: 134.0 mGyDose Area Product (DAP): 0.0 mGy*ngQ5Qfudbm time: 6:57 min:secRESULT: Images demonstrate an endoscope with contrast administration. A small amount of contrast is seen. The biliary system is not well opacified.IMPRESSION: Fluoroscopic assistance for ERCP procedureTranscriptionist: NII Transcribe Date/Time: Aug 18 2017 8:33ADictated by : REJI PATEL MDThis examination was interpreted and the report reviewed and electronically signed by: REJI PATEL MD on Aug 18 2017 8:34AM [id number] Normal [facility] CBCon 08-16-2017 Erythrocyte distribution width Auto Ratio (RBC) 15.4 % High 11.5-15.0 [facility] Comment on above: Performed By: #### P T, PTT, AMYL, CMP, LIPA, PHOS ####[place] [address]#### TRANSF ####[place] [address] Erythrocytes (RBC) 3.49 10*6/uL Low 4.20-6.00 [facility] Comment on above: Performed By: #### P T, PTT, AMYL, CMP, LIPA, PHOS ####[place] [phone]#### TRANSF ####[place] [address] Hematocrit (HCT) 29.9 % Low 39.0-51.0 [facility] Comment on above: Performed By: #### P T, PTT, AMYL, CMP, LIPA, PHOS ####[place] [address]#### TRANSF ####[place] [address] Hemoglobin mass conc (Bld) 9.8 g/dL Low 13.0-17.0 [facility] Comment on above: Performed By: #### P T, PTT, AMYL, CMP, LIPA, PHOS ####[place] [address]#### TRANSF ####[place] [address] MCH 28.1 pG Normal 26.0-34.0 [facility] Comment on above: Performed By: #### P T, PTT, AMYL, CMP, LIPA, PHOS ####[place] [address]#### TRANSF ####[place] [address] MCHC mass conc (RBC) 32.8 g/dL Normal 30.5-36.0 [facility] Comment on above: Performed By: #### P T, PTT, AMYL, CMP, LIPA, PHOS ####[place] [address]#### TRANSF ####[place] [address] MCV 85.7 fL Normal 80.0-100.0 [facility] Comment on above: Performed By: #### P T, PTT, AMYL, CMP, LIPA, PHOS ####[address]#### TRANSF ####[place] [address] Platelet mean volume (PMV) 10.9 fL Normal 9.0-12.7 [facility] Comment on above: Performed By: #### P T, PTT, AMYL, CMP, LIPA, PHOS ####[address] [phone]#### TRANSF ####[place] [address] [place], [place] [phone] Platelets 335 10*3/uL Normal 150-400 [facility] Comment on above: Performed By: #### P T, PTT, AMYL, CMP, LIPA, PHOS ####[place] [phone]#### TRANSF ####[address] [phone] WBC (Leukocytes) 11.42 10*3/uL High 3.70-11.00 [facility] Comment on above: Performed By: #### P T, PTT, AMYL, CMP, LIPA, PHOS ####[phone]#### TRANSF ####[address] [phone] CONSULTon 08-16-2017 CONSULT HNO ID: [id number] thor: Jessee Lottervice: Cardiovascular DiseaseAuthor Type: PhysicianType: [...] 12.5 BIDPlan:Switch to metoprolol 25 TID.Monitor.CAD. Remote [place], PCI in 2013.No angina.Duodenal mass and obstructive jaundices/p perc drain placement.-plan is for ERCP with possible duodenal stent placement tomorrow.[facility] STAFF PHYSICIAN NOTE OF PERSONAL [...] SERVICE: August 16, 2017TIME OF SERVICE: 4:36 [facility] COMPLAINT: abdominal painRocio Jackson is a 62 year old male, [facility]. 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 Followed by general [...] Date- ANGIOPLASTY HX 05/15/2011 2 stents s/p [place];[facility]- CHOLECYSTECTOMY 08/11/2017 [facility]- PICC LINE INSERT/CONSULT 08/16/2017Past Family History:non [...] 2017 : 3:56 PM PAGER/CONTACT #: Normal [facility] Magnesiumon 08-16-2017 Magnesium 2.3 mg/dL Normal 1.7-2.6 [facility] Comment on above: Performed By: #### P T, PTT, AMYL, CMP, LIPA, PHOS ####[facility] [place], [place] [phone]#### TRANSF ####[facility] [address] [place] [phone] NURSING PROGon 08-16-2017 NURSING PROG HNO ID: [id number] thor: Nolvia Vallejo, RNService: PICC TeamAuthor Type: Registered NurseType: Nursing Progress NoteFiled: 08/16/2017 8:05 AMNote Text:PICC/VASCULAR ACCESS PROGRESS NOTESERVICE DATE: 08/16/2017SERVICE TIME: 8:00 amPICC line ordered, heparin gtt currently on hold, plan for patient toreceive TPN, Double lumen chloraguard PICC recommended. Will continue tofollow.SIGNATURE: Nolvia Vallejo RN PATIENT NAME: Rocio JacksonDATE: August 16, 2017 : 8:03 AM PAGER/CONTACT #: [phone] [facility] NURSING PROG HNO ID: [id number] thor: Shavonne Mays, RNService: NursingAuthor Type: Registered NurseType: Nursing Progress NoteFiled: 08/16/2017 6:50 PMNote Text: Nursing Progress NotePatient Name: Rocio JacksonMRN: [id number] Location: [address]/[id number] ____Daily Note:07: SROC alpha paged re: PT/INR [...] upper ABD pain. 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 Per Dr Duffy,stop heparin gtt and admin vitamin K. Spoke with OCCUPATIONAL HEALTH NURSE MANAGER for GI service,repeat PT/INR ordered for 1200 tomorrow 08/17 prior to ERCP scheduled [id number], and if heparin gtt restarted prior to [...] 25 mg PO per new order, HR [id number]'s. SROC paged for chlorasetic spray and throat lozenge for pt c/othroat irritation from NGT.1800: Blood glucose 139, no SSI coverage required. Safety maintained.Pt resting in bed.This note was completed by: Shavonne Mays RN [facility] NURSING PROG HNO ID: [id number] thor: Deneen (Rn) Melanie, RNService: (none)Author Type: Registered NurseType: Nursing Progress NoteFiled: 08/16/2017 4:44 AMNote Text: Nursing Progress NotePatient Name: Rocio JacksonN: [id number] Location: [place] [address]/[id number] ____Daily Note:Late entry 08/15 Labs drawn for start of heparin drip. INR2.0 Order to notify team when INR equal to or greater than 2.0.0350: Team notified that INR 2.0. Order to hold heparin drip until morninglabs back with INR results. Will continue to monitor.0428: Text page to surgery for bladder scan of 665 ml and change in NGcolor from bile to brownish waj2203: SROC up to see and assess pt. Continue to monitor bladder as pt ishaving no symptoms of discomfort at this time. Wait to start heparin dripuntil Am labs. Continue to monitor NG output.This note was completed by: Deneen Navarro, KEVIN [facility] PLAN OF CAREon 08-16-2017 PLAN OF CARE HNO ID: [id number] thor: Gissell Ritterervice: GastroenterologyAuthor Type: Nurse PractitionerType: Plan of CareFiled: 08/16/2017 12:58 PMNote Text:In anticipation of ERCP tomorrow:INR notedPatient will need Vitamin K today and stat INR one hour prior to procedure(ordered)Stop Heparin drip 6 hrs prior to procedure as per surgeryDiscussed with Dr. Candelaria you for allowing us to participate in the care of Mr. Jackson. Pleasecall with any questions or concerns.Mónica Clarkrthshotheron GastroenterologyOffice: Cell: [facility] PROCEDUREon 08-16-2017 PROCEDURE HNO ID: [id number] thor: Luis Shaffer, RNService: PICC TeamAuthor Type: Registered NurseType: ProceduresFiled: 08/16/2017 9:07 AMNote Text:PICC NURSE INSERTION NOTEDATE OF PROCEDURE: August 16, 2017TIME OF PROCEDURE: 08ORDERING PHYSICIAN: Dr. HooperFORMED CONSENT: Obtained per hospital [...] Discussion: Shayan Shaffer RNCATHETER PLACEMENTBrand: Choloragard Lot: [id number] of Lumens: 2Type of PICC: Power Injectable [...] YesSPECIMENS: NoneCOMPLICATIONS: NonePatient Education Materials: Placed in [facility] Central Line Insertion checklist, attached to theCentral Line-Associated Bloodstream Infection Prevention Policy, wasutilized during this procedure.QUESTIONS or PROBLEMS: Page [phone] weekendSIGNATURE: Luis Shaffer RN PATIENT NAME: Rocio FrischDATE: August 16, 2017 : 8:35 AM PAGER/CONTACT PHONE: [facility] PROGRESSon 08-16-2017 PROGRESS HNO ID: [id number] thor: Lourdes FerrariService: GastroenterologyAuthor Type: PhysicianType: Progress NotesFiled: 08/16/2017 6:45 PMNote Text:[facility] Progress NoteSERVICE DATE: August 16, 2017SUBJECTIVENo [...] 95%Weight:Height:Body mass index is 29.28 kg/(m2).GENERAL: NAD, SAHb4WXIIW: PERRLA, EOMI, normal OPCV: RRR, normal S1, [...] with any further questions or concerns.Lourdes Ferrari MDSioux City Gastroenterology#: [phone]: Lourdes Ferrari MD PATIENT NAME: Rocio JacksonDATE: August 16, 2017 : 2:42 PM PAGER: [phone] [facility] PROGRESS HNO ID: [id number] thor: Khadar Chaneye: General SurgeryAuthor Type: PhysicianType: Progress NotesFiled: 08/16/2017 1:47 PMNote Text: SURGERY INPATIENT PROGRESS NOTESName: Rocio TorresdonnyMRN: [id number] and Plan:62 year old male with near-obstructing [...] lb 9.6 oz) SpO2 92% BMI 29.28 kg/z7Dsmiuy/Output Summary (Last 24 hours) at 08/16/17 0835Last [...] results tomorrow.Khadar Duffy MDFebruary 2017 1:47 PM [facility] PT EDon 08-16-2017 PT ED HNO ID: [id number] thor: Luis (Rn) Edmund, RNService: PICC TeamAuthor Type: Registered NurseType: Patient EducationFiled: 08/16/2017 8:34 AMNote Text:PATIENT EDUCATION TOPIC: PROCEDURE / SURGERY: Procedure/Surgery: PICCinsertion under US guidancePATIENT NAME: Rocio Boudreaux: [id number] LOCATION: [place] [address]READINES S TO LEARNCOGNITIVE ABILITY: Alert and orientedMOTIVATION TO LEARN: EagerInterestedFAMILY SUPPORT: High - Very involved in pt careINSTRUCTION PROVIDED TO: Patient and Family memberPATIENT LEARNS BEST BY: Individual InstructionVerbal InstructionFACTORS AFFECTING LEARNING: NonePHYSICAL LIMITATIONS AFFECTING LEARNING: NoneLEARNING RESPONSEDIAGNOSIS: ADULT: Duodenal obstructionPATIENT/FAMILY RESPONSE: Verbalizes understanding of: FNHM-DPCGBECACIIQMLWTSMGVL-C orrect actions to take to reduce post procedurecomplicationsPRE-[place] OCEDURE INSTRUCTIONS-Correct action to take to follow pre-procedureinstructionsMET HOD OF INSTRUCTION: Individual instructionVerbal instructionFOLLOW-UP PLAN: Patient instructed to call with any further issuesFollow-up with Primary CareINSTRUCTIONAL AIDS USED: NASUPPLEMENTAL MATERIAL PROVIDED TO PATIENT: NoneREFERRAL (RECOMMENDATION): NoneElectronically Signed By: Luis Shaffer RN [facility] Phosphoruson 08-16-2017 Phosphate 2.1 mg/dL Low 2.5-4.5 [facility] Comment on above: Performed By: #### P T, PTT, AMYL, CMP, LIPA, PHOS ####[place] [phone]#### TRANSF ####[address] [phone] Protimeon 08-16-2017 INR Coag RelTime (Bld) 2.0 {INR} High 0.9-1.3 [facility] Comment on above: Result Comment: Tayler min K Antagonist (VKA) Therapeutic Range: INR 2 to 3 (Target INR of 2.5)Note: For patients treated with VKA drugs, such as warfarin, the [employer] [place] [employer] 2012 Guideline recommends [...] al. Chest 2012, 141:7S-47SNishneto RA, et al. [facility] 2017, 70: 252-289 Performed By: #### P T, PTT, AMYL, CMP, LIPA, PHOS ####[place] [phone]#### TRANSF ####[place] [phone] PT Sec 19.5 sec High 9.7-13.0 [facility] Comment on above: Performed By: #### P T, PTT, AMYL, CMP, LIPA, PHOS ####[place] [phone]#### TRANSF ####[place] [phone] XR CHEST 1V PORT POST PICC - [...] place; Check tip position following PICC placement.M: [id number]: 08/13/2017RESULT:1. Lines / Tubes: a. Interval placement [...] ease, it is acceptable for venous access use.Medical Historian: NII Transcribe Date/Time: Aug 16 2017 10:15ADictated by : AURORA ROMERO MDThis examination was interpreted and the report reviewed and electronically signed by: AURORA ROMERO MD on Aug 16 2017 10:16AM [id number] [facility] ALLIED HEALTHon 08-15-2017 ALLIED HEALTH HNO ID: [id number] thor: Jennifer Win CtService: (none)Author Type: (none)Type: Allied HealthFiled: 08/15/2017 2:49 PMNote Text: Radiology Service Progress NotePATIENT NAME: Rocio JacksonPETRONA: [id number] OF SERVICE: August 15, 2017TIME: 2:48 PMPATIENT IDENTITY VERIFICATION COMPLETED USING TWO (2) METHODS: Patientconfirmed name verbally and ID band matches..PATIENT GENDER DATA: MalePATIENT RELEVANT IMPLANT DATA REVIEWED: Not ApplicableRADIOLOGY DEPARTMENT: CT; Exam(s) Completed: ABSCESS DRAINAGEPERIPHERAL IV DATA: Not applicableSIGNED BY: Jennifer Win CtFebruary 2017 2:48 PM [facility] BRIEF OP NOTon 08-15-2017 BRIEF OP NOT HNO ID: [id number] thor: Reji PatelSerkalliee: RadiologyAuthor Type: PhysicianType: Brief [...] 15, 2017 : 2:45 PM PAGER/CONTACT #: [phone] [facility] Blood Cultureon 08-15-2017 Bacteria culture Sp. Request/Comment: - The blood culture bottles are underfilled. Adding volume lower or higher than the 8 to 10 mL per bottle, which is the manufacturers recommended volume, may adversely affect the recovery and/or detection of organisms. 10.9MLCulture Result - No growth 5 days [facility] Comment on above: Performed By: #### P T, PTT, AMYL, CMP, LIPA, PHOS ####[address] [phone]#### TRANSF ####[facility] [address] [place], [place] [phone] Bacteria culture Culture Result - No growth 5 days [facility] Comment on above: Performed By: #### P T, PTT, AMYL, CMP, LIPA, PHOS ####[address] [phone]#### TRANSF ####[place] [phone] CBCon 08-15-2017 Erythrocyte distribution width Auto Ratio (RBC) 15.2 % High 11.5-15.0 [facility] Comment on above: Performed By: #### P T, PTT, AMYL, CMP, LIPA, PHOS ####[address]#### TRANSF ####[place] [phone] Erythrocytes (RBC) 3.46 10*6/uL Low 4.20-6.00 [facility] Comment on above: Performed By: #### P T, PTT, AMYL, CMP, LIPA, PHOS ####[address]#### TRANSF ####[place] [phone] Hematocrit (HCT) 29.3 % Low 39.0-51.0 [facility] Comment on above: Performed By: #### P T, PTT, AMYL, CMP, LIPA, PHOS ####[place] [address]#### TRANSF ####[place] [phone] Hemoglobin mass conc (Bld) 9.7 g/dL Low 13.0-17.0 [facility] Comment on above: Performed By: #### P T, PTT, AMYL, CMP, LIPA, PHOS ####[address]#### TRANSF ####[place] [phone] MCH 28.0 pG Normal 26.0-34.0 [facility] Comment on above: Performed By: #### P T, PTT, AMYL, CMP, LIPA, PHOS ####[place] [address]#### TRANSF ####[place] [phone] MCHC mass conc (RBC) 33.1 g/dL Normal 30.5-36.0 [facility] Comment on above: Performed By: #### P T, PTT, AMYL, CMP, LIPA, PHOS ####[place] [address]#### TRANSF ####[place] [phone] MCV 84.7 fL Normal 80.0-100.0 [facility] Comment on above: Performed By: #### P T, PTT, AMYL, CMP, LIPA, PHOS ####[place] [address]#### TRANSF ####[place] [phone] Platelet mean volume (PMV) 10.2 fL Normal 9.0-12.7 [facility] Comment on above: Performed By: #### P T, PTT, AMYL, CMP, LIPA, PHOS ####[place] [address]#### TRANSF ####[place] [phone] Platelets 302 10*3/uL Normal 150-400 [facility] Comment on above: Performed By: #### P T, PTT, AMYL, CMP, LIPA, PHOS ####[place] [address]#### TRANSF ####[place] [phone] WBC (Leukocytes) 12.79 10*3/uL High 3.70-11.00 [facility] Comment on above: Performed By: #### P T, PTT, AMYL, CMP, LIPA, PHOS ####[place] [address]#### TRANSF ####[place] [phone] Erythrocyte distribution width Auto Ratio (RBC) 15.3 % High 11.5-15.0 [facility] Comment on above: Performed By: #### P T, PTT, AMYL, CMP, LIPA, PHOS ####[place] [address]#### TRANSF ####[place] [phone] Erythrocytes (RBC) 3.99 10*6/uL Low 4.20-6.00 [facility] Comment on above: Performed By: #### P T, PTT, AMYL, CMP, LIPA, PHOS ####[place] [address]#### TRANSF ####[place] [phone] Hematocrit (HCT) 33.4 % Low 39.0-51.0 [facility] Comment on above: Performed By: #### P T, PTT, AMYL, CMP, LIPA, PHOS ####[place] [address]#### TRANSF ####[place] [phone] Hemoglobin mass conc (Bld) 11.1 g/dL Low 13.0-17.0 [facility] Comment on above: Performed By: #### P T, PTT, AMYL, CMP, LIPA, PHOS ####[place] [address]#### TRANSF ####[place] [phone] MCH 27.8 pG Normal 26.0-34.0 [facility] Comment on above: Performed By: #### P T, PTT, AMYL, CMP, LIPA, PHOS ####[place] [address]#### TRANSF ####[place] [phone] MCHC mass conc (RBC) 33.2 g/dL Normal 30.5-36.0 [facility] Comment on above: Performed By: #### P T, PTT, AMYL, CMP, LIPA, PHOS ####[place] [address]#### TRANSF ####[place] [phone] MCV 83.7 fL Normal 80.0-100.0 [facility] Comment on above: Performed By: #### P T, PTT, AMYL, CMP, LIPA, PHOS ####[place] [address]#### TRANSF ####[place] [phone] Platelet mean volume (PMV) 11.9 fL Normal 9.0-12.7 [facility] Comment on above: Performed By: #### P T, PTT, AMYL, CMP, LIPA, PHOS ####[place] [address]#### TRANSF ####[place] [phone] Platelets 328 10*3/uL Normal 150-400 [facility] Comment on above: Performed By: #### P T, PTT, AMYL, CMP, LIPA, PHOS ####[address]#### TRANSF ####[place] [phone] WBC (Leukocytes) 16.33 10*3/uL High 3.70-11.00 [facility] Comment on above: Performed By: #### P T, PTT, AMYL, CMP, LIPA, PHOS ####[facility] [place], [place] [phone]#### TRANSF ####[facility] [address] [place], [place] [phone] CONSULTon 08-15-2017 CONSULT HNO ID: [id number] thor: Gissell ([facility]) GerrekService: GastroenterologyAuthor Type: Nurse PractitionerType: ConsultsFiled: 08/15/2017 4:44 PMNote Text: -Attestation signed by Lourdes Ferrari at 08/17/2017 10:00 AMATTENDING NOTE:?I performed a history and physical examination of the patient and supervisedand discussed plan of care and management with the PA/FRIED CAKE MAKER. I reviewed thePA/FRIED CAKE MAKER's note and agree with the documented findings and plan of care.? ?Thank you for allowing us to participate in the care of this patient. Pleasecall with any questions or concerns.Munir TamayoNorth Memorial Health Hospital GastroenterologyPager [phone] --------CONSULT: [facility] Gastroenterology SERVICESERVICE DATE: 08/15/2017SERVICE TIME: 9:04 AMREASON FOR CONSULT: ERCPREQUESTING PHYSICIAN: Dr. Michael J[facility]leyTECHE [facility] CARE PH[facility]IAN: No primary care provider on [...] became acutely worse. [facility] 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 He was transferred to [facility] for further evaluationand treatment. 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 Nava and Dr. FerrariSIGNATURE: Gissell Serrato CNP PATIENT NAME: Rocio JacksonDATE: August 15, 2017 : 9:04 AM PAGER: [phone] [facility] [address] PERIT/RETROP FL BIon [...] with administration of agent, ends when continuous ilhq-hr-reqx time ends): 14 minutese) Patient monitoring: Continuous ECG, pulse oximetry and cardiopulmonary monitoring was performed during the entire procedure by both the physician and nurse.-I, the procedural radiologist personally supervised and directed the independent trained observer who assisted in monitoring the patient's level of consciousness and physiological status throughout the procedure.Catheter/ needle used: 5 Albanian Yueh, 8 Albanian pigtail.Imaging guidance with images saved into the permanent archive: CTTechnique: Using CT guidance a 5 Albanian catheter was inserted into the abscess collection in the gastrohepatic location. Serial dilatation was performed over a wire and an 8 Albanian pigtail catheter was inserted into the abscess collection. Approximately 110 cc of dark red serous fluid was obtained.Sample obtained: As aboveEstimated blood loss: Less than 1 ccComplications: NoneIMPRESSION: CT-guided abscess drainage of gastrohepatic fluid collection. Nearly the entire fluid collection was drained during this procedure. An 8 Albanian pigtail catheter remains in the location of the fluid collection and was connected to an accordion drainage bag. Patient was sent back to the room with the catheter.Medical Historian: PSCB Transcribe Date/Time: Aug 15 2017 5:47PDictated by : REJI PATEL MDThis examination was interpreted and the report reviewed and electronically signed by: REJI PATEL MD on Aug 15 2017 6:07PM [id number] Normal [facility] Comp Metabolic Panelon 08-15 Alanine aminotransferase (ALT) 205 U/L High 5-50 [facility] Comment on above: Performed By: #### P T, PTT, AMYL, CMP, LIPA, PHOS ####[place] [address]#### TRANSF ####[place] [phone] Albumin 2.5 g/dL Low 3.5-5.0 [facility] Comment on above: Performed By: #### P T, PTT, AMYL, CMP, LIPA, PHOS ####[place] [address]#### TRANSF ####[place] [phone] Alkaline phosphatase (ALP) 515 U/L High 40-150 [facility] Comment on above: Performed By: #### P T, PTT, AMYL, CMP, LIPA, PHOS ####[place] [address]#### TRANSF ####[place] [phone] Anion gap 14 mmol/L Normal 9-18 [facility] Comment on above: Performed By: #### P T, PTT, AMYL, CMP, LIPA, PHOS ####[place] [address]#### TRANSF ####[place] [phone] Aspartate aminotransferase (AST) 74 U/L High 7-40 [facility] Comment on above: Performed By: #### P T, PTT, AMYL, CMP, LIPA, PHOS ####[place] [address]#### TRANSF ####[place] [phone] Bilirubin (total) 1.7 mg/dL High 0.0-1.5 [facility] Comment on above: Performed By: #### P T, PTT, AMYL, CMP, LIPA, PHOS ####[place] [address]#### TRANSF ####[place] [phone] Calcium 8.7 mg/dL Normal 8.5-10.5 [facility] Comment on above: Performed By: #### P T, PTT, AMYL, CMP, LIPA, PHOS ####[place] [address]#### TRANSF ####[place] [address] Chloride 98 mmol/L Normal 98-110 [facility] Comment on above: Performed By: #### P T, PTT, AMYL, CMP, LIPA, PHOS ####[place] [address]#### TRANSF ####[place] [address] CO2 24 mmol/L Normal 23-32 [facility] Comment on above: Performed By: #### P T, PTT, AMYL, CMP, LIPA, PHOS ####[address]#### TRANSF ####[place] [phone] Creatinine 0.62 mg/dL Low 0.70-1.40 [facility] Comment on above: Performed By: #### P T, PTT, AMYL, CMP, LIPA, PHOS ####[place] [phone]#### TRANSF ####[place] [address] eGFR (non-black) mL/min/{1.73_m2} Normal >60 [facility] Comment on above: Performed By: #### P T, PTT, AMYL, CMP, LIPA, PHOS ####[address]#### TRANSF ####[place] [phone] Glucose mass conc 151 mg/dL High 65-100 [facility] Comment on above: Performed By: #### P T, PTT, AMYL, CMP, LIPA, PHOS ####[address]#### TRANSF ####[place] [phone] Potassium molar conc 3.5 mmol/L Normal 3.5-5.0 [facility] Comment on above: Performed By: #### P T, PTT, AMYL, CMP, LIPA, PHOS ####[place] [phone]#### TRANSF ####[place] [phone] Protein 6.4 g/dL Normal 6.0-8.4 [facility] Comment on above: Performed By: #### P T, PTT, AMYL, CMP, LIPA, PHOS ####[place] [phone]#### TRANSF ####[place] [address] [place], [place] [phone] Sodium 136 mmol/L Normal 135-146 [facility] Comment on above: Performed By: #### P T, PTT, AMYL, CMP, LIPA, PHOS ####[address] [phone]#### TRANSF ####[place] [phone] Urea nitrogen 12 mg/dL Normal 10-25 [facility] Comment on above: Performed By: #### P T, PTT, AMYL, CMP, LIPA, PHOS ####[place] [phone]#### TRANSF ####[address] [phone] HISTORY PHYSICALon HISTORY PHYSICAL HNO ID: [id number] thor: Reji Samaniegoe: RadiologyAuthor Type: PhysicianType: HANDPFiled: [...] Date- ANGIOPLASTY HX 05/15/2011 2 [place]- [facility] 08/13/17 2301Medication Sig Last Dose Takingaspirin, enteric coated (ECOTRIN LOW STRENGTH) 81 mg EC tablet Take 162 mgby mouth once daily. Past Week at Unknown time Yeslisinopril 2.5 mg tablet Take 2.5 mg by mouth once daily. 08/11/2017 [id number] Yesatorvastatin (LIPITOR) 40 mg tablet Take 40 [...] ModerateSIGNATURE: Reji Patel MD PATIENT NAME: Rocio VenturaDATE: August 15, 2017 : 2:05 PM PAGER: [phone] Normal [facility] Magnesiumon 08-15-2017 Magnesium 2.0 mg/dL Normal 1.7-2.6 [facility] Comment on above: Performed By: #### P T, PTT, AMYL, CMP, LIPA, PHOS ####[facility] [place], [place] [phone]#### TRANSF ####[facility] [address] [place], [place] [phone] NURSING PROGon 08-15-2017 NURSING PROG HNO ID: [id number] thor: Saima Kramer (Rn) MOUSTAPHA Richardsonervice: (none)Author Type: Registered NurseType: Nursing Progress NoteFiled: 08/15/2017 6:48 PMNote Text: Nursing Progress NotePatient Name: Rocio JacksonMRN: [id number] Location: [place] [id number] ____Daily Note:Pt phos level 2.2 - text [...] between 120-140. Text page to gen surg stormy aware. Pt asymptomatic at this time. Will cont to monitor.1630: NS bolus ordered. Made resident aware of pt's productive cough.Safety maintained.This note was completed by: Saima Richardson RN [facility] NUTRITIONon 08-15-2017 NUTRITION HNO ID: [id number] thor: Alana Greenwood (Carlos) SunilService: Nutrition TherapyAuthor Type: Registered DietitianType: NutritionFiled: 08/15/2017 1:17 PMNote Text:NUTRITION SUPPORT TEAMTOPIC: NUTRITION SUPPORT PROGRESS NOTEPATIENT NAME: Rocio JacksonMRN: [id number] OF : 1955DATE: 08/15/2017Nutritional Status: SEVERE PROTEIN [...] 87 kgResting Metabolic Rate: 1661Estimated kilocalorie needs: 1488-9440 kilocalories determined by 25-28kcal/kgEstimated protein needs:113 - [...] lb 9.6 oz) SpO2 92% BMI 29.28 kg/v4Pjbyxwc Weight: Weight: 87.4 kg (192 lb 9.6 [...] -- --CA 8.7 -- 8.5 8.9Recent Labs 346863HAEWMI 7*Accuchecks:Glucose, Point of Care (mg/dL)Date Value08/15/2017 141 (A)08/15/2017 154 (A)08/15/2017 138 (A)08/14/2017 148 (A)Alana Barber RD, LDPager: For further assistance and weekends please page the Group [phone] :3 Normal [facility] PROGRESSon 08-15-2017 PROGRESS HNO ID: [id number] thor: Kael (Georges) ASHLEY Hernandezervice: General SurgeryAuthor Type: ResidentType: Progress NotesFiled: 08/15/2017 7:29 PMNote Text:GENERAL SURGERY PROGRESS NOTENAME: Rocio VenturaMRN: [id number] 2017 7:20 PMASSESSMENT AND PLAN:Mr. Jackson is [...] for TPN- Dispo: ARLINE HERNANDEZ MDGeneral SurgeryPager: [phone]*On weekends or nights (after 1800) please contact the surgery on callpager.*SUBJECTIVE: No acute issues overnight and during the day. Restingcomfortably in bed.OBJECTIVE:BP 109/58 Pulse 78 Temp 36.3 ?C (97.4 ?F) (Oral) Resp 18 Ht 172.7cm (5' 8 ) Wt 87.4 kg (192 lb 9.6 oz) SpO2 94% BMI 29.28 kg/i8MYIUIEC: alert, NADLUNGS: breathing comfortablyCARDIAC: irregularABDOMEN: mildly TTP in upper abd, mildly distended, softEXTREMITIES: warm and well perfusedDRAINS/LINES: bilious drainage from JPDate 08/14/17 1500 - 08/15/17 0659 08/15/17 0700 - 08/16/17 0659Shift 6433-3633 1131-3907 24 Hour Total 5067-2461 4308-0612 4539-5300 24Hour TotalINTAKE PO 60 60 30 30 PO 60 60 30 30 IV 2018 2018 253 908 8410 NS 0.9% 2018 2018 998 592 0037 Irrigants 20 40 30 30 Irrigant/Flush Amount In (GI Feed/Drain 08/14/17 0109 Nasogastric RightNaris 18 Fr) 20 40 30 30 Shift Total 2099 2119 744 665 1409OUTPUT Urine 575 1125 425 425 Void (ml) 575 1125 425 425 Tubes 064 356 1702 330 445 775 Drain/Tube Output (Drain/Tube [facility] RightLower Quadrant Abdomen) 260 30 370 140 70 210 Drain/Tube Output (Drain/Tube 08/15/17 1530 Assessment Right UpperAbdomen) 275 275 Output (GI Feed/Drain 08/14/17 0109 Nasogastric Right Naris 18 Fr) 136685 0742 190 100 290 # of BMs Number [...] -- 395*ALT 205* -- 370* -- 418* Normal [facility] PROGRESS HNO ID: [id number] thor: Khadar DuffyService: General SurgeryAuthor Type: PhysicianType: [...] course.Khadar Duffy MDFebruary 2017 5:53 PM(late entry) Normal [facility] PT EDon 08-15-2017 PT ED HNO ID: [id number] thor: Dhara (Rn) MOUSTAPHA Riveroervice: RadiologyAuthor Type: [...] instructionPATIENT / FAMILY RESPONSE: Verbalizes understanding of: SNXR-EVFAJGHAMMFGGPZWSBRJU-F orrect actions to take to reduce post procedurecomplicationsPRE-[place] OCEDURE INSTRUCTIONS-Correct action to take to follow pre-procedureinstructionsFOL LOW-UP PLAN: Complete - No need for follow-upSUPPLEMENTAL MATERIAL: Title of written material: Abcess drain andSedation informationREFERRAL (RECOMMENDATION): NoneElectronically Signed By: Dhara Rivero RN In Department: [address] Normal [facility] PTT,Anticoag Therapyon 08-15 aPTT 39.8 s High 23.0-32.4 [facility] Comment on above: Result Comment: Unfr actionated [...] laboratory APTT reagent in use throughout the [facility]. Performed By: #### P T, PTT, AMYL, CMP, LIPA, PHOS ####[place] [phone]#### TRANSF ####[place] [phone] Phosphoruson 08-15-2017 Phosphate 2.2 mg/dL Low 2.5-4.5 [facility] Comment on above: Performed By: #### P T, PTT, AMYL, CMP, LIPA, PHOS ####[address] [phone]#### TRANSF ####[address] [phone] Protimeon 08-15-2017 INR Coag RelTime (Bld) 2.0 {INR} High 0.9-1.3 [facility] Comment on above: Result Comment: Tayler min K Antagonist (VKA) Therapeutic Range: INR 2 to 3 (Target INR of 2.5)Note: For patients treated with VKA drugs, such as warfarin, the [place] [employer] 2012 Guideline recommends [...] al. Chest 2012, 141:7S-47SFelice RA, et al. [facility] 2017, 70: 252-289 Performed By: #### P T, PTT, AMYL, CMP, LIPA, PHOS ####[place] [phone]#### TRANSF ####[place] [phone] PT Sec 19.4 sec High 9.7-13.0 [facility] Comment on above: Performed By: #### P T, PTT, AMYL, CMP, LIPA, PHOS ####[place] [phone]#### TRANSF ####[place] [address] [place], [place] [phone] Urine Cultureon 08-15-2017 Urine culture, bacteria Sp. [...] <=0.25 FErtapenem SUSCEPTIBLE <=0.5 F Critically abnormal [facility] Comment on above: Performed By: #### P T, PTT, AMYL, CMP, LIPA, PHOS ####[facility] [place] [phone]#### TRANSF ####[place] [address] [place], [place] [phone] Wound Culture/Stainon 2017 Wound Culture/Stain Sp. Request/Comment: - Specimen received in sterile container.Smear Result - Rare Gram positive cocci in pairs and chains --> ABNORMAL ALERT No Polymorphonuclear LeukocytesCulture Result - Moderate Streptococcus mutans group --> ABNORMAL ALERTORGANISM: Streptococcus mutans groupMETHOD: Minimum inhibitory concentration (VIZION)Antibiotic Interp JOLENE StatusPenicillin G SUSCEPTIBLE <=0.03 FVancomycin SUSCEPTIBLE <=0.5 FCeftriaxone SUSCEPTIBLE <=0.12 FClindamycin SUSCEPTIBLE <=0.12 F Critically abnormal [facility] Comment on above: Performed By: #### W CUL ####[address] [phone] ALLIED HEALTHon 08-14-2017 ALLIED HEALTH HNO ID: [id number] thor: Albert Sutherland: (none)Author Type: (none)Type: Allied HealthFiled: 08/14/2017 7:17 PMNote Text: Radiology Service Progress NotePATIENT NAME: Rocio JacksonPETRONA: [id number] OF SERVICE: August 14, 2017TIME: 7:16 PMPATIENT IDENTITY VERIFICATION COMPLETED USING TWO (2) METHODS: Patientconfirmed name verbally and ID band matches..PATIENT GENDER DATA: MalePATIENT RELEVANT IMPLANT DATA REVIEWED: Not ApplicableCONTRAST INDUCED NEPHROPATHY RISK FACTORS: Patient age > 60 yearsCREATININE:CreatinineDa te Value Ref Range Xifqut3208/14/2017 0.61 (L) 0.70 - 1.40 mg/dL Final08/14/2017 0.63 (L) 0.70 - 1.40 mg/dL Final eGFR-All Other RacesDate Value Ref Range Rrgqze5508/14/2017 >60 >60 . Final eGFR- AmericanDate Value Ref Range Rzqvsp8908/14/2017 >60 >60 Final P.O.C.T. RESULTS: POC done: Yes, See Lab Tab August 14, 2017RADIOLOGIST NOTIFIED?: NoALLERGIES: Reviewed and unchangedCONTRAST ALLERGY: NO.PERIPHERAL IV ACCESS: Inpatient: see LDA documentationRADIOLOGY DEPARTMENT: CT; Exam(s) Completed: Abdomen/Pelvis , Chest andPancreasSIGNED BY: Albert Vaughan 2017 7:16 PM [facility] ALLIED HEALTH HNO ID: [id number] thor: Denise Graham RTService: (none)Author Type: (none)Type: Allied HealthFiled: 08/14/2017 1:32 AMNote Text: Radiology Service Progress NotePATIENT NAME: Rocio JacksonPETRONA: [id number] OF SERVICE: August 14, 2017TIME: 1:32 AMPATIENT IDENTITY VERIFICATION COMPLETED USING TWO (2) METHODS: Patientconfirmed name verbally and ID band matches..PATIENT GENDER DATA: MalePATIENT RELEVANT IMPLANT DATA REVIEWED: Not ApplicableRADIOLOGY DEPARTMENT: General X-ray: Exam(s) Completed: Chest X-RayAbdomen X-Ray AbdomenPERIPHERAL IV DATA: Not applicableSIGNED BY: Denise [facility] 2017 1:32 AM [facility] APTTon 08-14-2017 aPTT 31.6 s Normal 23.0-32.4 [facility] Comment on above: Result Comment: Unfr actionated [...] laboratory APTT reagent in use throughout the [facility]. Performed By: #### P T, PTT, AMYL, CMP, LIPA, PHOS ####[place] [address]#### TRANSF ####[place] [phone] aPTT 30.2 s Normal 23.0-32.4 [facility] Comment on above: Result Comment: Unfr actionated [...] laboratory APTT reagent in use throughout the [facility]. Performed By: #### P T, PTT, AMYL, CMP, LIPA, PHOS ####[place] [address]#### TRANSF ####[place] [phone] Amylaseon 08-14-2017 Amylase 59 U/L Normal 0-137 [facility] Comment on above: Performed By: #### P T, PTT, AMYL, CMP, LIPA, PHOS ####[place] [phone]#### TRANSF ####[address] [phone] Bilirubin, Fluidon 8 Bilirubin (direct) 6.1 mg/dL Critically abnormal See Comment [facility] Comment on above: Result Comment: Sero us [...] document C49A. SAIMA Contreras: Clinical Laboratory Standards [place]: 2007.2. Nani Y, Javierata T, Yokira Y et al. The Determination of Bile Leakage in Complex Hepatectomy Based on the Guidelines of the International Study Group of Liver Surgery. World J Surg. 2014 38:168-176.This test was developed and its performance characteristics determined by [facility]'s [facility] Pathology and Laboratory Medicine [place] ([facility]).It has not been cleared or approved by the FDA. [facility] is regulated under CLIA as qualified to perform high-complexity testing.This test is used for clinical purposes. It should not be regarded as investigational or for research. Performed By: #### P T, PTT, AMYL, CMP, LIPA, PHOS ####[place] [address]#### TRANSF ####[place] [phone] Fluid Other Normal [facility] Comment on above: Result Comment: ROMINA D RAIN Performed By: #### P T, PTT, AMYL, CMP, LIPA, PHOS ####[place] [address]#### TRANSF ####[place] [phone] CBCon 08-14-2017 Erythrocyte distribution width Auto Ratio (RBC) 15.2 % High 11.5-15.0 [facility] Comment on above: Performed By: #### P T, PTT, AMYL, CMP, LIPA, PHOS ####[place] [address]#### TRANSF ####[place] [phone] Erythrocytes (RBC) 3.70 10*6/uL Low 4.20-6.00 [facility] Comment on above: Performed By: #### P T, PTT, AMYL, CMP, LIPA, PHOS ####[place] [address]#### TRANSF ####[place] [phone] Hematocrit (HCT) 31.7 % Low 39.0-51.0 [facility] Comment on above: Performed By: #### P T, PTT, AMYL, CMP, LIPA, PHOS ####[place] [address]#### TRANSF ####[place] [phone] Hemoglobin mass conc (Bld) 10.7 g/dL Low 13.0-17.0 [facility] Comment on above: Performed By: #### P T, PTT, AMYL, CMP, LIPA, PHOS ####[place] [address]#### TRANSF ####[place] [phone] MCH 28.9 pG Normal 26.0-34.0 [facility] Comment on above: Performed By: #### P T, PTT, AMYL, CMP, LIPA, PHOS ####[address]#### TRANSF ####[place] [phone] MCHC mass conc (RBC) 33.8 g/dL Normal 30.5-36.0 [facility] Comment on above: Performed By: #### P T, PTT, AMYL, CMP, LIPA, PHOS ####[place] [address]#### TRANSF ####[place] [phone] MCV 85.7 fL Normal 80.0-100.0 [facility] Comment on above: Performed By: #### P T, PTT, AMYL, CMP, LIPA, PHOS ####[place] [address]#### TRANSF ####[place] [phone] Platelet mean volume (PMV) 12.1 fL Normal 9.0-12.7 [facility] Comment on above: Performed By: #### P T, PTT, AMYL, CMP, LIPA, PHOS ####[place] [address]#### TRANSF ####[place] [phone] Platelets 285 10*3/uL Normal 150-400 [facility] Comment on above: Performed By: #### P T, PTT, AMYL, CMP, LIPA, PHOS ####[place] [address]#### TRANSF ####[place] [phone] WBC (Leukocytes) 11.53 10*3/uL High 3.70-11.00 [facility] Comment on above: Performed By: #### P T, PTT, AMYL, CMP, LIPA, PHOS ####[place] [address]#### TRANSF ####[place] [phone] CT CHEST W IVCONon 8 CT CHEST [...] pelvis.IMPRESSION: Bilateral effusions with associated atelectasis versus infiltrates.Medical Historian : NII Transcribe Date/Time: Aug 14 2017 8:43PDictated by : AURORA ROMERO MDThis examination was interpreted and the report reviewed and electronically signed by: AURORA ROMERO MD on Aug 14 2017 8:46PM [id number] Normal [facility] CT PANCREAS/PELVIS W IVCONon 08-14-2017 CT [...] ROMERO MD on Aug 15 2017 5:11PM [id number] Normal [facility] Comp Metabolic Panelon 08-14 Alanine aminotransferase (ALT) 370 U/L High 5-50 [facility] Comment on above: Performed By: #### P T, PTT, AMYL, CMP, LIPA, PHOS ####[place] [address]#### TRANSF ####[place] [phone] Albumin 2.9 g/dL Low 3.5-5.0 [facility] Comment on above: Performed By: #### P T, PTT, AMYL, CMP, LIPA, PHOS ####[place] [address]#### TRANSF ####[address] Alkaline phosphatase (ALP) 727 U/L High 40-150 [facility] Comment on above: Performed By: #### P T, PTT, AMYL, CMP, LIPA, PHOS ####[place] [address]#### TRANSF ####[place] [phone] Anion gap 15 mmol/L Normal 9-18 [facility] Comment on above: Performed By: #### P T, PTT, AMYL, CMP, LIPA, PHOS ####[place] [address]#### TRANSF ####[place] [phone] Aspartate aminotransferase (AST) 285 U/L High 7-40 [facility] Comment on above: Performed By: #### P T, PTT, AMYL, CMP, LIPA, PHOS ####[place] [address]#### TRANSF ####[place] [phone] Bilirubin (total) 2.3 mg/dL High 0.0-1.5 [facility] Comment on above: Performed By: #### P T, PTT, AMYL, CMP, LIPA, PHOS ####[place] [address]#### TRANSF ####[place] [phone] Calcium 8.5 mg/dL Normal 8.5-10.5 [facility] Comment on above: Performed By: #### P T, PTT, AMYL, CMP, LIPA, PHOS ####[place] [address]#### TRANSF ####[place] [phone] Chloride 96 mmol/L Low 98-110 [facility] Comment on above: Performed By: #### P T, PTT, AMYL, CMP, LIPA, PHOS ####[place] [address]#### TRANSF ####[place] [phone] CO2 22 mmol/L Low 23-32 [facility] Comment on above: Performed By: #### P T, PTT, AMYL, CMP, LIPA, PHOS ####[place] [address]#### TRANSF ####[place] [phone] Creatinine 0.61 mg/dL Low 0.70-1.40 [facility] Comment on above: Performed By: #### P T, PTT, AMYL, CMP, LIPA, PHOS ####[place] [phone]#### TRANSF ####[place] [phone] eGFR (non-black) mL/min/{1.73_m2} Normal >60 [facility] Comment on above: Performed By: #### P T, PTT, AMYL, CMP, LIPA, PHOS ####[place] [address]#### TRANSF ####[place] [address] Glucose mass conc 147 mg/dL High 65-100 [facility] Comment on above: Performed By: #### P T, PTT, AMYL, CMP, LIPA, PHOS ####[address]#### TRANSF ####[place] [phone] Potassium molar conc 3.8 mmol/L Normal 3.5-5.0 [facility] Comment on above: Performed By: #### P T, PTT, AMYL, CMP, LIPA, PHOS ####[place] [phone]#### TRANSF ####[place] [phone] Protein 6.4 g/dL Normal 6.0-8.4 [facility] Comment on above: Performed By: #### P T, PTT, AMYL, CMP, LIPA, PHOS ####[place] [phone]#### TRANSF ####[place] [address] Sodium 133 mmol/L Low 135-146 [facility] Comment on above: Performed By: #### P T, PTT, AMYL, CMP, LIPA, PHOS ####[place] [address]#### TRANSF ####[place] [phone] Urea nitrogen 9 mg/dL Low 10-25 [facility] Comment on above: Performed By: #### P T, PTT, AMYL, CMP, LIPA, PHOS ####[place] [address]#### TRANSF ####[place] [phone] Alanine aminotransferase (ALT) 418 U/L High 5-50 [facility] Comment on above: Performed By: #### P T, PTT, AMYL, CMP, LIPA, PHOS ####[place] [address]#### TRANSF ####[place] [phone] Albumin 3.1 g/dL Low 3.5-5.0 [facility] Comment on above: Performed By: #### P T, PTT, AMYL, CMP, LIPA, PHOS ####[place] [address]#### TRANSF ####[place] [phone] Alkaline phosphatase (ALP) 832 U/L High 40-150 [facility] Comment on above: Performed By: #### P T, PTT, AMYL, CMP, LIPA, PHOS ####[place] [address]#### TRANSF ####[phone] Anion gap 13 mmol/L Normal 9-18 [facility] Comment on above: Performed By: #### P T, PTT, AMYL, CMP, LIPA, PHOS ####[place] [address]#### TRANSF ####[place] [address] Aspartate aminotransferase (AST) 395 U/L High 7-40 [facility] Comment on above: Performed By: #### P T, PTT, AMYL, CMP, LIPA, PHOS ####[place] [address]#### TRANSF ####[place] [address] Bilirubin (total) 2.7 mg/dL High 0.0-1.5 [facility] Comment on above: Performed By: #### P T, PTT, AMYL, CMP, LIPA, PHOS ####[place] [address]#### TRANSF ####[place] [address] Calcium 8.9 mg/dL Normal 8.5-10.5 [facility] Comment on above: Performed By: #### P T, PTT, AMYL, CMP, LIPA, PHOS ####[place] [address]#### TRANSF ####[place] [address] Chloride 96 mmol/L Low 98-110 [facility] Comment on above: Performed By: #### P T, PTT, AMYL, CMP, LIPA, PHOS ####[place] [address]#### TRANSF ####[place] [address] [address] [place] [phone] CO2 23 mmol/L Normal 23-32 [facility] Comment on above: Performed By: #### P T, PTT, AMYL, CMP, LIPA, PHOS ####[place] [phone]#### TRANSF ####[place] [address] Creatinine 0.63 mg/dL Low 0.70-1.40 [facility] Comment on above: Performed By: #### P T, PTT, AMYL, CMP, LIPA, PHOS ####[place] [address]#### TRANSF ####[place] [address] eGFR (non-black) mL/min/{1.73_m2} Normal >60 [facility] Comment on above: Performed By: #### P T, PTT, AMYL, CMP, LIPA, PHOS ####[address]#### TRANSF ####[place] [address] Glucose mass conc 149 mg/dL High 65-100 [facility] Comment on above: Performed By: #### P T, PTT, AMYL, CMP, LIPA, PHOS ####[place] [address]#### TRANSF ####[place] [address] Potassium molar conc 4.2 mmol/L Normal 3.5-5.0 [facility] Comment on above: Performed By: #### P T, PTT, AMYL, CMP, LIPA, PHOS ####[place] [address]56[address]#### TRANSF ####[place] [phone] Protein 7.0 g/dL Normal 6.0-8.4 [facility] Comment on above: Performed By: #### P T, PTT, AMYL, CMP, LIPA, PHOS ####[place] [address]#### TRANSF ####[phone] Sodium 132 mmol/L Low 135-146 [facility] Comment on above: Performed By: #### P T, PTT, AMYL, CMP, LIPA, PHOS ####[place] [address]#### TRANSF ####[place] [address] Urea nitrogen 9 mg/dL Low 10-25 [facility] Comment on above: Performed By: #### P T, PTT, AMYL, CMP, LIPA, PHOS ####[place] [address]#### TRANSF ####[place] [phone] HISTORY PHYSICALon 8 HISTORY PHYSICAL HNO ID: [id number] thor: Michael Cdeillo) AugustinService: General SurgeryAuthor Type: PhysicianType: HANDPFiled: 08/14/2017 11:20 PMNote Text:SURGICAL SERVICES INITIAL HANDPSERVICE DATE: 08/13/2017SERVICE TIME: 11:52 PMPRIMARY CARE PHYSICIAN: No primary care provider on file.SubjectiveHISTORY OF PRESENT ILLNESS: Mr. Jackson is a 62 year old male with PMH ofCAD s/p stent x2, type 2 DM on metformin, HTN, glaucoma, PSH ofcholecystectomy ) who was transferred from [facility].Patient reports symptoms of abdominal pain and [...] from the mass and he wastransferred to [facility] for further management.Of note he has an episode of bleeding duodenal ulcer for which he receivedmultiple blood transfusion.PAST MEDICAL HISTORYDiagnosis Date- Bleeding ulcer 11/15/2016 required 5 blood transfusions- Diabetes mellitus (HCC) 2016- Glaucoma- Hypertension- Myocardial infarction 05/15/2011PAST SURGICAL HISTORYProcedure Laterality Date- ANGIOPLASTY HX 05/15/2011 2 stents [place]p [place];[facility]- [facility].Social HistorySubstance Use [...] by mouth once daily. Disp: Rfl:08/10/[address] [place] [address] medications:[START ON 08/14/2017] pneumococcal vaccine 23 VALENT [...] Non labored breathing on RACARDIOVASCULAR: History of [place] with stents on 162 aspirinGI: Vomiting and [...] under Dr Jolley- MIGUELINA for decompression to [facility] to confirm [...] 13, 2017 : 11:52 PM PAGER/CONTACT #: [phone] NOTEI have independently seen and examined the patient today. I haveindependently reviewed all the imaging and the labs. I agree with keycomponents of the resident's note above. Care plan and decision making hasbeen discussed.Patient with obstructing duodenal mass [facility] months of abdominal painUnderwent lap richelle recentlySymptoms have been worse since surgeryAbd is soft and non peritonitic. RUQ tenderness noted. Drain with bileI have reviewed the CT.2 large collections and Duodenal mass. No liver or pulmonary metastasesTumor markersIR drain for abdominal fluid collection; these are likely bilomas givenCBD obstruction at the time of cholecystectomyEGD/ERCP for biliary stentNeeds Cassie Jolley MD, MPH, FACSGeneral/Trauma/HPB SurgeryPager: [phone] Cell: [phone] 2017 Normal [facility] Lipaseon 08-14-2017 Lipase 43 U/L Normal [facility] Comment on above: Performed By: #### P T, PTT, AMYL, CMP, LIPA, PHOS ####[place] [address]#### TRANSF ####[place] [address] Lipase 58 U/L Normal [facility] Comment on above: Performed By: #### P T, PTT, AMYL, CMP, LIPA, PHOS ####[place] [address]#### TRANSF ####[place] [address] NURSING PROGon 08-14-2017 NURSING PROG HNO ID: [id number] thor: Kiley Wong, RNService: (none)Author Type: Registered NurseType: Nursing Progress NoteFiled: 08/14/2017 6:27 PMNote Text: Nursing Progress NotePatient Name: Rocio JacksonPETRONA: [id number] Location: [place] [address]/[id number] ____Daily Note:1800-Patient reporting a significant increase in [...] adark tea colored fluid. Call placed to certified surgical tech/first assistant to notify, hewill be up to see the patient. Repositioned for comfort, no new orders atthis time.1810-Resident is in to see patient, orders to continue to monitor. Callplaced to CT to determine when patient will be taken down. Per drinking water technician thepatient is on the transport list and CT will be completed soon.is note was completed by: Kiley Wong RN [facility] NURSING PROG HNO ID: [id number] thor: Jacqueline (Rn) Jeremy, RNService: (none)Author Type: Registered NurseType: Nursing Progress NoteFiled: 08/13/2017 10:36 PMNote Text: Nursing Progress NotePatient Name: Rocio Boudreaux: [id number] Location: [place] [address]/[id number] ____Transfer Note:Patient transferred into room/unit PK336 at 2145. Actions taken:Dressingaround pt ROMINA drain changed AND ROMINA emptied. Will follow up with orders andcontinue to monitor.This note was completed by: Jacqueline Luna RN [facility] NUTRITIONon 08-14-2017 NUTRITION HNO ID: [id number] thor: Alise Segura) BarsaService: Nutrition TherapyAuthor Type: [...] 87 kgResting Metabolic Rate: 1661Estimated kilocalorie needs: 5426-4233 kilocalories determined by 25-28kcal/kgEstimated protein needs:113 - [...] lb 9.6 oz) SpO2 93% BMI 29.28 kg/n5Kceugk Labs 08/14/1803GLUC 147* -- 149*BUN 9* -- [...] RD, LD PATIENT NAME: Rocio Sibley: August 14, 2017 : 2:31 PM PAGER: For further assistance and weekends please page theGroup Pager -[phone] Normal [facility] Phosphoruson 08-14-2017 Phosphate 2.4 mg/dL Low 2.5-4.5 [facility] Comment on above: Performed By: #### P T, PTT, AMYL, CMP, LIPA, PHOS ####[place] [address]#### TRANSF ####[address]444[address] Phosphate 2.3 mg/dL Low 2.5-4.5 [facility] Comment on above: Performed By: #### P T, PTT, AMYL, CMP, LIPA, PHOS ####[place] [address]#### TRANSF ####[phone] Phosphate 2.3 mg/dL Low 2.5-4.5 [facility] Comment on above: Performed By: #### P T, PTT, AMYL, CMP, LIPA, PHOS ####[place] [address]#### TRANSF ####[phone] Prealbuminon 08-14-2017 Prealbumin 7 mg/dL Low 17-36 [facility] Comment on above: Performed By: #### P T, PTT, AMYL, CMP, LIPA, PHOS ####[place] [address]#### TRANSF ####[phone] Protimeon 08-14-2017 INR Coag RelTime (Bld) 1.5 {INR} High 0.9-1.3 [facility] Comment on above: Result Comment: Tayler min K Antagonist (VKA) Therapeutic Range: INR 2 to 3 (Target INR of 2.5)Note: For patients treated with VKA drugs, such as warfarin, the [place] [employer] 2012 Guideline recommends [...] al. Chest 2012, 141:7S-47SNishneto RA, et al. [facility] 2017, 70: 252-289 Performed By: #### P T, PTT, AMYL, CMP, LIPA, PHOS ####[place] [address]#### TRANSF ####[place] [phone] PT Sec 14.9 sec High 9.7-13.0 [facility] Comment on above: Performed By: #### P T, PTT, AMYL, CMP, LIPA, PHOS ####[place] [address]56[address]#### TRANSF ####[address]444-5755 INR Coag RelTime (Bld) 1.5 {INR} High 0.9-1.3 [facility] Comment on above: Result Comment: Tayler min K Antagonist (VKA) Therapeutic Range: INR 2 to 3 (Target INR of 2.5)Note: For patients treated with VKA drugs, such as warfarin, the [place] [employer] 2012 Guideline recommends [...] al. Chest 2012, 141:7S-47SNishimura RA, et al. [facility] 2017, 70: 252-289 Performed By: #### P T, PTT, AMYL, CMP, LIPA, PHOS ####[place] [address]2456[address]#### TRANSF ####[place] [address] PT Sec 14.7 sec High 9.7-13.0 [facility] Comment on above: Performed By: #### P T, PTT, AMYL, CMP, LIPA, PHOS ####[place] [address]#### TRANSF ####[place] [address] Transferrinon 08-14-2017 Transferrin 218 mg/dL Normal 200-360 [facility] Comment on above: Performed By: #### P T, PTT, AMYL, CMP, LIPA, PHOS ####[place] [address]#### TRANSF ####[place] [address] Type and Screenon 08-14-2017 ABO/RH(D) Positive [facility] Comment on above: Performed By: #### P T, PTT, AMYL, CMP, LIPA, PHOS ####[address]#### TRANSF ####[place] [address] Antibody Screen Negative [facility] Comment on above: Performed By: #### P T, PTT, AMYL, CMP, LIPA, PHOS ####[place] [address]#### TRANSF ####[facility] [address] [place], [place] [phone] XR ABDOMEN 1V SUPINEon 08-14 XR ABDOMEN [...] excluded from view.IMPRESSION:NG TUBE EXTENDS TO THE STOMACH.Medical Historian: NII Transcribe Date/Time: Aug 14 2017 7:37ADictated by : Elisa MOSCOSO examination was interpreted and the report reviewed and electronically signed by: SUSAN CORNEJO MD on Aug 14 2017 7:38AM [id number] [facility] XR CHEST 1V FRONTAL PORTon 0 [...] Partially obscured.Other:IMPRESSION:Lo w lung volumes with bibasilar atelectasis.Medical Historian : NII Transcribe Date/Time: Aug 14 2017 7:38ADictated by : Elisa MOSCOSO examination was interpreted and the report reviewed and electronically signed by: SUSAN CORNEJO MD on Aug 14 2017 7:40AM [id number] [facility] HOSPon 08-13-2017 HOSP Patient:Coleen JacksonLizbeth RN: Height:5' 8 (1.727 m)Weight:192 lb (87.091 [...] LR infusion (D5-LR)heparin 5,000 Units injectionphenol 1 Hodges (CHLORASEPTIC)metoprolol tartrate (short acting) 25 mg tab(s) [...] % 08/19/2017 51.0 39.0Progress Notes (FV PK3C):Jacqueline Luna RN, RN 08/13/2017 10:36 PM Signed Nursing Progress NotePatient Name: Rocio JacksonMRMarisa: [id number] Location: [place] [address]/VT-[id number] ____Transfer Note:Patient transferred into room/unit PK336 at [...] DM on metformin, HTN, glaucoma, PSH of hzafyiyaolinakv76/13/2018) who was transferred from [facility].Patient reports symptoms [...] from the mass and he was transferred [facility] for further management.Of note he has an episode of bleeding duodenal ulcer for which he receivedmultiple blood transfusion.PAST MEDICAL HISTORYDiagnosis Date- Bleeding ulcer 11/15/2016 required 5 blood transfusions- Diabetes mellitus (HCC) 2016- Glaucoma- Hypertension- Myocardial infarction 05/15/2011PAST SURGICAL HISTORYProcedure Laterality Date- ANGIOPLASTY HX 05/15/2011 2 stents [place]/p [place];[facility]- CHOLECYSTECTOMY 08/11/2017 [facility] family history on file.Social HistorySubstance Use Topics- [...] by mouth once daily. Disp: Rfl: 08/10/2017at 0900Current hospital medications:[START ON 08/14/2017] pneumococcal vaccine 23 [...] Non labored breathing on RACARDIOVASCULAR: History of [place] with stents on 162 aspirinGI: Vomiting and [...] 13, 2017 : 11:52 PM PAGER/CONTACT #: [phone] NOTEI have independently seen and examined the patient today. I have independentlyreviewed all the imaging and the labs. I agree with figueroa components of theresident's note above. Care plan and decision making has been discussed.Patient with obstructing duodenal mass [facility] months of abdominal painUnderwent lap richelle recentlySymptoms have been worse since surgeryAbd is soft and non peritonitic. RUQ tenderness noted. Drain with bileI have reviewed the CT.2 large collections and Duodenal mass. No liver or pulmonary metastasesTumor markersIR drain for abdominal fluid collection; these are likely bilomas given CBDobstruction at the time of cholecystectomyEGD/ERCP for biliary stentNeeds TPNTevi Jolley MD, MPH, FACSGeneral/Trauma/HPB SurgeryPager: [phone] Cell: [phone] 2017Previous VersionDenise Graham RT 08/14/2017 1:32 AM Signed Radiology Service Progress NotePATIENT NAME: Rocio JacksonMRN: [id number] OF SERVICE: August 14, 2017TIME: 1:32 AMPATIENT [...] 87 kgResting Metabolic Rate: 1661Estimated kilocalorie needs: 1716-1087 kilocalories determined by 25-28 kcal/kgEstimated protein needs:113 [...] lb 9.6 oz) SpO2 93% BMI 29.28 kg/v7Blxbfp Labs 08/14/1803GLUC 147* -- 149*BUN 9* -- [...] assistance and weekends please page the GroupPager [phone] Stewart, RN, RN 08/14/2017 6:27 PM Signed Nursing Progress NotePatient Name: Rocio HayesN: [id number] Location: [place] [address]/PZ-[id number] ____Daily Note:1800-Patient reporting a significant increase in [...] a dark tea coloredfluid. Call placed to certified surgical tech/first assistant to notify, he will be up to see thepatient. Repositioned for comfort, no new orders at this time.1810-Resident is in to see patient, orders to continue to monitor. Call placedto CT to determine when patient will be taken down. Per drinking water technician the patient israel the transport list and CT will be completed soon.is note was completed by: Radha Pacheco 08/14/2017 7:17 PM Signed Radiology Service Progress NotePATIENT NAME: Rocio JacksonMRN: [id number] OF SERVICE: August 14, 2017TIME: 7:16 PMPATIENT IDENTITY VERIFICATION COMPLETED USING TWO (2) METHODS: Patientconfirmed name verbally and ID band matches..PATIENT GENDER DATA: MalePATIENT RELEVANT IMPLANT DATA REVIEWED: Not ApplicableCONTRAST INDUCED NEPHROPATHY RISK FACTORS: Patient age > 60 yearsCREATININE:CreatinineDa te Value Ref Range Fqfnfk5208/14/2017 0.61 (L) 0.70 - 1.40 mg/dL Final02/ 0.63 (L) 0.70 - 1.40 mg/dL Final eGFR-All Other RacesDate Value Ref Range Knggun5308/14/2017 >60 >60 . Final eGFR- AmericanDate Value Ref Range Vzqsvv9008/14/2017 >60 >60 Final P.O.C.T. RESULTS: POC done: [...] plan of care and management with the PA/FRIED CAKE MAKER. I reviewed thePA/FRIED CAKE MAKER's note and agree with the documented findings and plan of care.? ?Thank you for allowing us to participate in the care of this patient. Pleasecall with any questions or concerns.Lawrence Tamayo [facility] GastroenterologyPager [phone] --------CONSULT: [facility] Gastroenterology SERVICESERVICE DATE: 08/15/2017SERVICE TIME: 9:04 AMREASON FOR CONSULT: ERCPREQUESTING PHYSICIAN: Dr. Marti [facility] CARE PHYSICIAN: No primary care provider on file.SubjectiveMr. Jackson is a 62 year old male with PMH of CAD s/p stent x2, type 2 DM onmetformin, HTN, glaucoma, PSH of cholecystectomy (08/11/2017, ERCP 08/13/17) whowas [facility] due to ulcerated mass possibleadenocarcinoma.The patient states that he had intermittent RUQ abdominal pain for sometime and became acutely worse. He subsequently underwent cholecystectomy [facility]. He had persistent pain and elevated LFT's following the richelle andunderwent ERCP on 08/13/17 which showed a duodenal mass and was biopsied. [facility] and [facility]. Following [...] 2.3, AST 285, ALT 370, and new bxpxpqogesdn99.53-->16.33.No t currently on antibiotics.FUNCTIONAL STATUS: IndependentPAST MEDICAL HISTORYDiagnosis Date- Bleeding ulcer 11/15/2016 required 5 blood transfusions- Diabetes mellitus (HCC) 2016- Glaucoma- Hypertension- Myocardial infarction 05/15/2011PAST SURGICAL HISTORYProcedure Laterality Date- ANGIOPLASTY HX 05/15/2011 2 stents s/p [place];[facility]- CHOLECYSTECTOMY 08/11/2017 [facility] family history on file.Social HistorySubstance Use Topics- [...] by mouth once daily. Disp: [facility]2017[facility]oxyCODONE IR 5 mg tab(s) (ROXICODONE) [...] control as per primary service-Maintain NPO-IV Cipro reinforcing iron and rebar workers for ERCP (ordered)D/w Dr. Nava and Dr. AquinoattSIGNATURE: Gissell Serrato CNP PATIENT NAME: Rocio JacksonDATE: August 15, 2017 : 9:04 AM PAGER: [phone] M Beskid, RN, RN 08/15/2017 6:48 PM Addendum Nursing Progress NotePatient Name: Rocio JacksonMRN: [id number] Location: [place] [address]/[id number] ____Daily Note:Pt phos level 2.2 - text [...] NUTRITION SUPPORT PROGRESS NOTEPATIENT NAME: Rocio Boudreaux: [id number] OF : 1955DATE: 08/15/2017Nutritional Status: SEVERE PROTEIN CALORIE MALNUTRITION in the context of acuteIllness or Injury based on weight loss, subcutaneous fat loss and muscle lossConsult for Nutrient IntakeInterval History: per surgeryMr. Ventura is a 62 year old male [...] 87 kgResting Metabolic Rate: 1661Estimated kilocalorie needs: 3535-9200 kilocalories determined by 25-28 kcal/kgEstimated protein needs:113 [...] (192 lb 9.6 oz) SpO2 92% BMI29.28 kg/k0Bopokfl Weight: Weight: 87.4 kg (192 lb 9.6 [...] -- --CA 8.7 -- 8.5 8.9Recent Labs 278700ULLMKN 7*Accuchecks:Glucose, Point of Care (mg/dL)Date Value08/15/2017 141 (A)08/15/2017 154 (A)08/15/2017 138 (A)08/14/2017 148 (A)Alana Barber RD, LDPager: For further assistance and weekends please page the Group [phone]-[phone] :3Previous Constance Patel MD 08/15/2017 2:07 PM [...] Date- ANGIOPLASTY HX 05/15/2011 2 stents s/p [place];[facility]- [facility] as of [facility]/13/17 [...] 20 mg by mouth twice daily. 08/11/2017 ue4727 Yesnitroglycerin sublingual (NITROSTAT) 0.4 mg SL tablet [...] GOAL: ModerateSIGNATURE: Reji Patel MD PATIENT NAME: Rcoio VizcarraTE: August 15, 2017 : 2:05 PM PAGER: [phone] Rivero RN, RN 08/15/2017 3:13 PM SignedAMBULATORY [...] instructionPATIENT / FAMILY RESPONSE: Verbalizes understanding of: MCDA-QQMJKSGSHKWYSPGSHTZHO-G orrect actions to take to reduce post procedure complicationsPRE-PROCEDURE INSTRUCTIONS-Correct action to take to follow pre-procedureinstructionsFOL LOW-UP PLAN: Complete - No need for follow-upSUPPLEMENTAL MATERIAL: Title of written material: Abcess drain and SedationinformationREFERRAL (RECOMMENDATION): NoneElectronically Signed By: Dhara Rivero RN In Department: [facility]3Sean Patel MD 08/15/2017 2:46 PM SignedRadiology [...] 15, 2017 : 2:45 PM PAGER/CONTACT #: [phone] Win De 08/15/2017 2:49 PM Signed Radiology Service Progress NotePATIENT NAME: Rocio JacksonMRN: [id number] OF SERVICE: August 15, 2017TIME: 2:48 PMPATIENT IDENTITY VERIFICATION COMPLETED USING TWO (2) METHODS: Patientconfirmed name verbally and ID band matches..PATIENT GENDER DATA: MalePATIENT RELEVANT IMPLANT DATA REVIEWED: Not ApplicableRADIOLOGY DEPARTMENT: CT; Exam(s) Completed: ABSCESS DRAINAGEPERIPHERAL IV DATA: Not applicableSIGNED BY: Jennifer Win [facility] 2:48 PMAraul Duffy MD 08/15/2017 5:53 PM SignedSurgery Att:Pt seen at 1100 this am.AF last 24 hours. Mild tachycardia. BP stable.Mild tenderness remains in upper abdomen; bilious drainage from ROMINA.WBC increased to 16K.Symptomatic from bilomas/bile leak.Plan: Perc drainage of bilomas today, which should control bile leak.ERCP/stent would hopefully resolve bile leak if able to be completed.Continue atbx and follow clinical course.Khadar Duffy MDFeuary 2017 5:53 PM(late entry)Kael Hernandez MD, MD 08/15/2017 7:29 PM SignedGENERAL SURGERY PROGRESS NOTENAME: Rocio JacksonMRN: [id number] 2017 7:20 PMASSESSMENT AND PLAN:Mr. Jackson is [...] tachycardic during the day. EKG revealed A-fib. Apxrfgxg3a153 NSB, responded to bolus.IR drained 110cc dark serous fluid on 08/15- Continue pain control regimen- FEN/GI: NPO diet; mIVF- Abx: Cipro- Prophylaxis: DVT prophylaxis, IS, OOB, ambulate- Telemetry- PICC line placement- Nutrition consult for TPN- Dispo: ARLINE HERNANDEZ MDGeneral SurgeryPager: [phone]*On weekends or nights (after 1800) please contact the surgery reinforcing iron and rebar workers pager.*SUBJECTIVE: No acute issues overnight and during the day. Resting comfortablyin bed.OBJECTIVE:BP 109/58 Pulse 78 Temp 36.3 ?C (97.4 ?F) (Oral) Resp 18 Ht 172.7 cm (5'8 ) Wt 87.4 kg (192 lb 9.6 oz) SpO2 94% BMI 29.28 kg/r5WIQGQIH: alert, NADLUNGS: breathing comfortablyCARDIAC: irregularABDOMEN: mildly TTP in upper abd, mildly distended, softEXTREMITIES: warm and well perfusedDRAINS/LINES: bilious drainage from JPDate 08/14/17 1500 - 08/15/17 0659 08/15/17 0700 - 08/16/17 0659Shift 4472-6910 2428-5443 24 Hour Total 6470-4519 7173-8406 3321-6280 24 HourTotalINTAKE PO 60 60 30 30 PO 60 60 30 30 IV 2018 2018 298 481 9902 NS 0.9% 2018 2018 181 288 3637 Irrigants 20 40 30 30 Irrigant/Flush Amount In (GI Feed/Drain 08/14/17 0109 Nasogastric Right Naris18 Fr) 20 40 30 30 Shift Total 2099 2119 744 665 1409OUTPUT Urine 575 1125 425 425 Void (ml) 575 1125 425 425 Tubes 269 079 5707 330 445 775 Drain/Tube Output (Drain/Tube [facility] Right LowerQuadrant Abdomen) 260 30 370 140 70 210 Drain/Tube Output (Drain/Tube 08/15/17 1530 Assessment Right Upper Abdomen)275 275 Output (GI Feed/Drain 08/14/17 0109 Nasogastric Right Naris 18 Fr) 523 0854200 190 100 290 # of BMs Number [...] Addendum Nursing Progress NotePatient Name: Rocio Boudreaux: [id number] Location: [address]/[id number] ____Daily Note:Late entry 08/15 Labs drawn for start of heparin drip. INR 2.0Order to notify team when INR equal to or greater than 2.0.0350: Team notified that INR 2.0. Order to hold heparin drip until morning labsback with INR results. Will continue to monitor.0428: Text page to surgery for bladder scan of 665 ml and change in NG colorfrom bile to brownish ers2424: SROC up to see and assess pt. Continue to monitor bladder as pt is havingno symptoms of discomfort at this time. Wait to start heparin drip until Amlabs. Continue to monitor NG output.This note was completed by: aKye May, RN, RN 08/16/2017 6:50 PM Signed Nursing Progress NotePatient Name: Rocio Boudreaux: [id number] Location: [place] [address]/[id number] ____Daily Note:0730: SROC alpha paged re: PT/INR result 2.0 from morning lab work, heparin gttorder remains active, requesting clarification. 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 Per Dr Duffy, stop heparingtt and admin vitamin K. Spoke with OCCUPATIONAL HEALTH NURSE MANAGER for GI service, repeat PT/INR orderedfor 1200 [...] 16, 2017 : 8:03 AM PAGER/CONTACT #: [phone] Song, RN, RN 08/16/2017 8:34 AM SignedPATIENT EDUCATION TOPIC: PROCEDURE / SURGERY: Procedure/Surgery: PICCinsertion under US guidancePATIENT NAME: Rocio TorresdonnyMRMarisa: [id number] LOCATION: [place] [address]/[id number] S TO LEARNCOGNITIVE ABILITY: Alert and orientedMOTIVATION TO LEARN: EagerInterestedFAMILY SUPPORT: High - Very involved in pt careINSTRUCTION PROVIDED TO: Patient and Family memberPATIENT LEARNS BEST BY: Individual InstructionVerbal InstructionFACTORS AFFECTING LEARNING: NonePHYSICAL LIMITATIONS AFFECTING LEARNING: NoneLEARNING RESPONSEDIAGNOSIS: ADULT: Duodenal obstructionPATIENT/FAMILY RESPONSE: Verbalizes understanding of: JSWH-HUMXDOLJNHOYMASFFGFSQ-X orrect actions to take to reduce post [...] OF PROCEDURE: August 16, 2017TIME OF PROCEDURE: 08ORDERING PHYSICIAN: Dr. HooperFORMED CONSENT: Obtained per hospital [...] 0825Affirmation of Time Out: YESSign Out Discussion: CompletedLuis Shaffer RNCATHETER PLACEMENTBrand: Charan Lot: [id number] of Lumens: 2Type of PICC: Power Injectable [...] NoneCOMPLICATIONS: NonePatient Education Materials: Placed in chartThe [facility] Central Line Insertion checklist, attached to the CentralLine-Associated Bloodstream Infection Prevention Policy, was utilized duringthis procedure.QUESTIONS or PROBLEMS: Page [phone] weekendSIGNATURE: Luis Shaffer RN PATIENT NAME: Rocio JacksonDATE: August 16, 2017 : 8:35 AM PAGER/CONTACT PHONE:Khadar Duffy MD 08/16/2017 1:47 PM Addendum SURGERY INPATIENT PROGRESS NOTESName: Rocio JacksonMRN: [id number] and Plan:62 year old male with near-obstructing [...] lb 9.6 oz) SpO2 92% BMI 29.28 kg/f5Wlspcb/Output Summary (Last 24 hours) at 08/16/17 0835Last data filed at 08/16/17 0631 Gross per 24 hourIntake 3079 mlOutput 2640 mlNet 439 mlGeneral Appearance: NADAbdomen: soft, non-tender, mild distention. Drains in place, bilious output.Akbar Lassiter MDGOOD [facility] SURGERY PGY-48:35 AM08/16/2017*A review of daily goals, [...] Please callwith any questions or concerns.Gissell Serrato CNPNorthsre GastroenterologyOffice: Cell: Uzjsvz Kenny Ferrari MD 08/16/2017 6:45 PM [facility] Progress NoteSERVICE DATE: August 16, 2017SUBJECTIVENo abd pain, n/v, f/c. Afib overnight. Passing gas. No BM.OBJECTIVEMEDICATIONSCurre [facility] medications:potassium phosphate 30 mmol in NaCl 0.9% [...] 0.2 mg INTRAVENOUS q 2 H PRNPE 421 753 9 BP: 108/64 117/60 113/66Pulse: 92 (!) 128 92 96Resp: 18 17 16Temp: 36.9 ?C (98.4 ?F) 36.7 ?C (98 ?F) 37.4 ?C (99.3 ?F)TempSrc: Oral Oral OralSpO2: 92% 92% 95%Weight:Height:Body mass index is 29.28 kg/(m2).GENERAL: NAD, RJKr9DLFDB: PERRLA, EOMI, normal OPCV: RRR, normal S1, [...] with any further questions or concerns.Lourdes Ferrari MDSioux City GastroenterologyPg#: [phone]: Lourdes Ferrari MD PATIENT NAME: Rocio JacksonDATE: August 16, 2017 : 2:42 PM PAGER: [phone] VersionRaviscristian Mayorga MD 08/16/2017 4:39 PM AddendumCONSULT: [...] 12.5 BIDPlan:Switch to metoprolol 25 TID.Monitor.CAD. Remote [place], PCI in 2013.No angina.Duodenal mass and obstructive jaundices/p perc drain placement.-plan is for ERCP with possible duodenal stent placement tomorrow.[facility] STAFF PHYSICIAN NOTE OF PERSONAL [...] SERVICE: August 16, 2017TIME OF SERVICE: 4:36 [facility] COMPLAINT: abdominal painRocio Jackson is a 62 year old male, [facility]. Followed by aCardiologist in [place].History of CAD, NJ s/p stent x2 in 2013, DM II, hypertension, glaucoma, recentcholecystectomy 08/11/2017, ERCP 08/13/17-showed multiple fluid collections andpartial duodenal obstruction due to ulcerated mass, possible adenocarcinoma.Subsequently transferred from [facility].-Worsening abdomina pain, leukocytosis. Followed by general [...] Date- ANGIOPLASTY HX 05/15/2011 2 stents s/p [place];[facility]- CHOLECYSTECTOMY 08/11/2017 [facility]- PICC LINE INSERT/CONSULT 08/16/2017Past Family History:non [...] AddendumPROGRESS NOTES - SURGICAL SERVICESPATIENT NAME: Rocio Boudreaux: [id number] HISTORY OF PRESENT ILLNESS:No acute events overnight. [...] 87 kgResting Metabolic Rate: 1661Estimated kilocalorie needs: 0761-5958 kilocalories determined by 25-28 kcal/kgEstimated protein needs:113 - 130 grams determined by 1.3-1.5 g/kg DosingweightEstimated fluid needs: 2200 - 2400 milliliters based on 1 mL per kcalAdmission Weight: 87.4 kg (192 lb 9.6 oz)Current Weight: 87.4 kg (192 lb 9.6 oz)Body mass index is 29.28 kg/(m2). overweightALLERGIESNo Known AllergiesCurrent Facility-Administered Medications:phenol 1 Hodges (CHLORASEPTIC) 1 Hodges MUCOUS MEMBRANE (TOPICAL MOUTH AND THROAT) q2 [...] RD, LD PATIENT NAME: Rocio FrischDATE: August 17, 2017 : 10:20 AM PAGER: For further assistance and weekends please page the GroupPager [phone] R Bolla, MD 08/18/2017 10:29 PM SignedPROGRESS NOTE CARDIOLOGY SERVICESERVICE DATE: August 17, 2017SERVICE TIME: 12:48 PMASSESSMENT/PLANActive Problems:Atrial fibrillation. Persistent AF, ventricular rates +/- 100Heparin infusion is off. Inr was elevated, received vitamin K prior toprocedure. Today 1.0.s/p ERCP yesterdayPlan:Continue metoprolol.Spoke to surgical FRIED CAKE MAKER Boubacar Espinoza. ->kimberley is for PTHC tomorrow.Will [...] edema.PULSES: Peripheral pulses present.MEDICATIONS:Current Facility-Administered Medications:phenol 1 Hodges (CHLORASEPTIC) 1 Hodges MUCOUS MEMBRANE (TOPICAL MOUTH AND THROAT) q2 [...] Hour Labs:CBC, Coags, BMP, Mg, PhosRecent Labs 08/17/1807 [id number] 4.87 -- 7.02 11.42* 12.79*HB 8.6* -- [...] EnzymesSIGNATURE: Sabrina Arango CNP PATIENT NAME: Rocio JacksonDATE: August 17, 2017 : 12:48 PM PAGER/CONTACT #:Previous Bartolome Tomas RN, RN 08/17/2017 2:14 PM SignedCARE MANAGEMENT: ASSESSMENT AND DISCHARGE PLANSERVICE DATE: 08/17/2017SERVICE TIME: 2:11 PMPRIMARY CARE PHYSICIAN:No primary care provider on file.Phone: NoneADMISSION STATUS: InpatientPOTENTIAL DISCHARGE PLANSTo Be DeterminedPatient/Representa tive Stated Goals: I am having a test this afternoon.Needs Prior to Discharge: To Be DeterminedHealth Insurance: [facility] CenterLiving Arrangement: HomeLives With: 2 adult childrenFinancial Resources: N/APrimary Contact:Extended Emergency Contact InformationPrimary Emergency Contact: Corazon Mullerddress: [address] [place], [place] [address]Rmek Wjzhjgnh: SiblingSupportive: YesOther Important Patient Contacts: NoneCAREGIVER ASSESSMENT:Caregiver [...] days? NoHas the Patient Been in a Alf Facility in the Past 30 days? NoFREEDOM OF CHOICE EXPLAINED:Marisa/RUDY COMMUNICATION:Poncho CM met with pt at bedside [...] 17, 2017 : 2:07 PM PAGER/CONTACT #: [phone] Zelin, MD 08/17/2017 3:21 PM SignedREGIONAL ANESTHESIOLOGY DAY OF SURGERY NOTEPATIENT NAME: Rocio JacksonMRN: [id number]: 1955Procedure(s) (LRB):ERCP (N/A)Surgeon(s):Srinath NavaEstimated body mass index [...] 08/17/2017EKG:atrial fibrillation, rate 100sVitals: 810 900 159 459BP: 128/77 141/90 128/84Pulse: 100 109 101Resp: 16Temp: [...] Date- ANGIOPLASTY HX 05/15/2011 2 stents s/p [place];[facility]- CHOLECYSTECTOMY 08/11/2017 [facility]- PICC LINE INSERT/CONSULT 08/16/2017No family history on file.Social History:Social HistorySubstance Use Topics- Smoking status: Former Smoker Types: Cigarettes Quit date: 2010- Smokeless tobacco: Never Used- Alcohol use 1.5 oz/week 1 Cans of Beer (12oz) per week Comment: occasional beerNo current facility-administered medications on file prior to encounter.No current outpatient prescriptions on file prior to encounter.Inpatient medications reviewed in [facility].I have interviewed and examined the patient. I have reviewed the medical recordand/or the pre-anesthesia evaluation, pertinent labs, and test results.Significant changes in the patient's condition since the History and Physical,not otherwise documented in primary service progress notes: [facility] contains updated information obtained within 48 hours of Surgery/Procedure.SIGNATURE: Reba Valle MD PATIENT NAME: Rocio TorresdonnyDATE: August 17, 2017 : 3:20 PM PAGER/CONTACT [...] notes..SIGNATURE: Srinath Nava MD PATIENT NAME: Rocio Sibley: August 17, 2017 : 3:20 PM PAGER:Srinath [...] NOTES - SURGICAL SERVICESPATIENT NAME: Rocio JacksonMRN: [id number] HISTORY OF PRESENT ILLNESS:No acute events overnight. [...] non distended.CBC, Coags, BMP, Mg, PhosRecent Labs 08/17/18073 08/16/1805WBC 4.87 -- 7.02 11.42* 12.79*HB 8.6* -- [...] care: IS, EVERETT HERNANDEZ MD (Res)General SurgeryPager: [phone]*On weekends or nights (after 1800) please contact the surgery reinforcing iron and rebar workers pager.*Attending: ERCP results noted. Unable to cannulate [...] (HumaLOG) SUBCUTANEOUS w MEALS AND HSphenol 1 Hodges (CHLORASEPTIC) 1 Hodges MUCOUS MEMBRANE (TOPICAL MOUTH AND THROAT) q2 [...] today's visit:Most recent labs and imaging results.Impression/Re[facility]Mc[facility] CenterDary Jackson is a 62 year old male [...] tube placement for feeding-continue to followLinda Avalos CNPSioux City GastroenterologyThank you for allowing us to participate in the care of this patient. Pleasecall with questions or concerns.SIGNATURE: Linda Avalos CNP PATIENT NAME: Rocio FrischDATE: August 18, 2017 : 1:20 PM PAGER: [phone] Barsa, RD, LD 08/18/2017 1:39 PM SignedNUTRITION THERAPY PROGRESS NOTESERVICE DATE: 08/18/2017SERVICE TIME: 1:24 PMRECOMMENDED DIAGNOSIS: SEVERE PROTEIN-CALORIE MALNUTRITION per RegisteredDietitian on 08/14NUTRITION CARE PLANIntervention:Diet NPOAdvance to clearsMonitor and Evaluation:Goal: Meet >75% of estimated needsMonitor fluid/electrolyte balanceMonitor labs, I/Os, vital signs, weightDischarge Nutrition Recommendations:To be ynffnuhxdf13 year old male with a history notable [...] (HumaLOG) SUBCUTANEOUS w MEALS AND HSphenol 1 Hodges (CHLORASEPTIC) 1 Hodges MUCOUS MEMBRANE (TOPICAL MOUTH AND THROAT) q2 [...] assistance and weekends please page the GroupPager [phone] Berardi, RN, RN 08/18/2017 2:30 PM SignedMULTIDISCIPLINARY ROUNDSSERVICE DATE: 08/18/2017 ADMISSION DATE: 08/13/2017SERVICE TIME: 2:27 PM ANTICIPATED D/C DATE: 1-3 daysProblem List:ACTIVE PROBLEM LISTDuodenal ObstructionSevere Protein-Calorie Malnutrition (Hcc)Attendees Present at Rounds:Pantry Goods Worker: Roderick Nurse: Laura Discussed on Rounds:Discharge NeedsPlan [...] August 18, 2017 : 2:27 PM CSN: [id number] J Gobel, RN, RN 08/19/2017 3:24 AM Signed Nursing Progress NotePatient Name: Rocio HayesN: [id number] Location: [place] [address]/[id number] ____ Pt with mild abd pain of 3 or less tonight. Tylenol controlling. Pt aware ifneeded may have pain pills. Accordian drain flushed at 2100 per order forpositive return of sterile NS and brown liquid.This note was completed by: Vipul Das RN, RN 08/19/2017 11:47 AM SignedPATIENT EDUCATION TOPIC: PROCEDURE / SURGERY: Procedure/Surgery: PTHCPATIENT NAME: Rocio HayesN: [id number] LOCATION: [place] [address]READINES S TO LEARNCOGNITIVE ABILITY: Alert and orientedMOTIVATION TO LEARN: EagerInterestedFAMILY SUPPORT: Unable to assess - Family not presentINSTRUCTION PROVIDED TO: PatientPATIENT LEARNS BEST BY: Individual InstructionWritten Instruction - Hand-outsVerbal InstructionFACTORS AFFECTING LEARNING: NonePHYSICAL LIMITATIONS AFFECTING LEARNING: NoneLEARNING RESPONSEDIAGNOSIS: ADULT: Duodenal massPATIENT/FAMILY RESPONSE: Verbalizes understanding of: ZEIC-NWDMHSWICLENBHEMLHVRV-A orrect actions to take to reduce post [...] no rubs, murmurs, or gallopsProvisional Diagnosis/Treatment Plan: [facility] Hospitaleneral AnesthesiaThis HANDP can be found in the attached.SIGNATURE: Vanessa Garcia MD PATIENT NAME: Rocio VizcarraTE: August 19, 2017 : 12:47 PM PAGER: [phone] CARLOS Lopez, LD 08/19/2017 2:22 PM SignedNUTRITION [...] 87 kgResting Metabolic Rate: 1661Estimated kilocalorie needs: 1784-3630 kilocalories determined by 25-28 kcal/kgEstimated protein needs:113 [...] kg (192 lb) SpO2 98% BMI 29.19 kg/w6Ypybpf Labs GLUC 144*BUN 7*CREAT 0.58*NA 142K 3.4*CHLOR [...] 5,000 Units SUBCUTANEOUS q 8 Hphenol 1 Hodges (CHLORASEPTIC) 1 Hodges MUCOUS MEMBRANE (TOPICAL MOUTH AND THROAT) q2 [...] assistance and weekends please page the GroupPager [phone] Tritle, MD 08/19/2017 2:57 PM SignedBRIEF OPERATIVE / PROCEDURE NOTESurgery/Procedure Date: 08/19/17Incision/Procedure Start Time:Incision Close/Procedure End Time:Surgeon(s)/Proceduralis t(s) and Theology Professor(s):Dusty Garcia - PrimaryProcedure(s): R PTHC and Int/Ext biliary drainAnesthesia: GeneralFindings: Mildly dilated IH ducts. NO filling defects. Severe D2-3 strictureEstimated Blood Loss: MinimalSpecimens: NoneComplications: NonePre-Op/Pre-Procedure Diagnosis: Duodenal massPost-Op/Post-Procedure Diagnosis: SameSIGNATURE: Vanessa Garcia MD PATIENT NAME: Rocio JacksonDATE: August 19, 2017 : 2:56 PM PAGER/CONTACT #: Normal [facility] Vital Signs Date Time Vital Sign Value Performing Clinician Facility 06-04-2023 13:30-0500 Body height 168.91 cm David Caputo Other [employer] Other 06-04-2023 13:30-0500 Body mass index (BMI) [Ratio] 20.67 kg/m2 David Caputo Other [employer] Other 06-04-2023 13:30-0500 Body weight 58.97 kg David Caputo Other [employer] Other 06-04-2023 13:30-0500 Diastolic blood pressure 63 mm[Hg] David Caputo Other [employer] Other 06-04-2023 13:30-0500 Systolic blood pressure 99 mm[Hg] David Caputo Other [employer] Other 04-09-2023 14:57-0400 Body height 170.8 cm [employer] Work Phone: [facility] 04-09-2023 14:57-0400 Body temperature 97.39 [degF] Ma Sand Work Phone: [facility] 04-09-2023 14:57-0400 Body weight 50.8 kg Ma giftee Work Phone: [facility] 04-09-2023 14:57-0400 Diastolic blood pressure 66 mm[Hg] Ma Sand Work Phone: [facility] 04-09-2023 14:57-0400 Heart rate 93 /min Ma Sand Work Phone: [facility] 04-09-2023 14:57-0400 Respiratory rate 16 /min Ma Sand Work Phone: [facility] 04-09-2023 14:57-0400 SaO2% (BldA) [Mass fraction] 97 % Ma Sand Work Phone: [facility] 04-09-2023 14:57-0400 Systolic blood pressure 108 mm[Hg] Ma Sand Work Phone: [facility] 03-11-2023 10:36-0400 Body height 170.8 cm Zahra Buitrago MD Work Phone: [facility] 03-11-2023 10:36-0400 Body temperature 97.39 [degF] Zahra Buitrago MD Work Phone: [facility] 03-11-2023 10:36-0400 Diastolic blood pressure 81 mm[Hg] Zahra Buitrago MD Work Phone: [facility] 03-11-2023 10:36-0400 Heart rate 83 /min Zahra Buitrago MD Work Phone: [facility] 03-11-2023 10:36-0400 Respiratory rate 18 /min Zahra Buitrago MD Work Phone: [facility] 03-11-2023 10:36-0400 SaO2% (BldA) [Mass fraction] 100 % Zahra Buitrago MD Work Phone: [facility] 03-11-2023 10:36-0400 Systolic blood pressure 118 mm[Hg] Zahra Buitrago MD Work Phone: [facility] 03-05-2023 14:30-0400 Body height 168.91 cm David Caputo Other [employer] Other 03-05-2023 14:30-0400 Body mass index (BMI) [Ratio] 20.67 kg/m2 David Caputo Other [employer] Other 03-05-2023 14:30-0400 Body weight 58.97 kg David Caputo Other [employer] Other 03-05-2023 14:30-0400 Diastolic blood pressure 66 mm[Hg] David Caputo Other [employer] Other 03-05-2023 14:30-0400 Systolic blood pressure 107 mm[Hg] David Caputo Other [employer] Other 02-19-2023 15:22-0400 Body temperature 97.5 [degF] Zahra Buitrago MD Work Phone: [facility] 02-19-2023 15:22-0400 Body weight 50.8 kg Zahra Buitrago MD Work Phone: [facility] 02-19-2023 15:22-0400 Diastolic blood pressure 63 mm[Hg] Zahra Buitrago MD Work Phone: [facility] 02-19-2023 15:22-0400 Heart rate 98 /min Zahra Buitrago MD Work Phone: [facility] 02-19-2023 15:22-0400 Respiratory rate 18 /min Zahra Buitrago MD Work Phone: [facility] 02-19-2023 15:22-0400 SaO2% (BldA) [Mass fraction] 97 % Zahra Buitrago MD Work Phone: [facility] 02-19-2023 15:22-0400 Systolic blood pressure 98 mm[Hg] Zahra Buitrago MD Work Phone: [facility] 02-12-2023 08:05-0400 PAIN LEVEL 0 {score} Dr. Adriane Mccoy [facility] 02-12-2023 04:59-0400 PAIN LEVEL 0 {score} Dr. Adriane Mccoy [facility] 02-12-2023 04:01-0400 Body temperature 98.8 [degF] Dr. Adriane Mccoy [facility] 02-12-2023 04:01-0400 Diastolic blood pressure 72 mm[Hg] [facility]-12-2023 04:01-0400 Heart rate 87 /min Dr. Adriane Mccoy [facility] 02-12-2023 04:01-0400 Respiratory rate 17 /min Dr. Adrinae Mccoy [facility] 02-12-2023 04:01-0400 Systolic blood pressure 114 mm[Hg] [facility] 02-11-2023 16:27-0400 Body temperature 98.5 [degF] [facility] 16:27-0400 Diastolic blood pressure 72 mm[Hg] [facility] Adriane [facility] 02-11-2023 16:27-0400 Heart rate 74 /min Dr. Adriane Mccoy [facility] 02-11-2023 16:27-0400 Respiratory rate 16 /[facility]-11-2023 16:27-0400 Systolic blood pressure 113 mm[Hg] [facility]. Adriane [facility] 02-11-2023 08:28-0400 PAIN LEVEL 0 {score} Dr. Adriane Mccoy [facility] 02-11-2023 05:16-0400 PAIN LEVEL 0 {score} Dr. Adriane Mccoy [facility] 02-11-2023 01:47-0400 Body temperature 98.2 [degF] Dr. Adriane Mccoy [facility] 02-11-2023 01:47-0400 Diastolic blood pressure 76 mm[Hg] [facility]. Adriane [facility] 02-11-2023 01:47-0400 Heart rate 80 /min Dr. Adriane Mccoy [facility] 02-11-2023 01:47-0400 Respiratory rate 17 /min Dr. Adriane Mccoy [facility] 02-11-2023 01:47-0400 Systolic blood pressure 110 mm[Hg] [facility]. Adriane [facility] 02-10-2023 16:22-0400 Body temperature 98.5 [degF] [facility]-10-[facility]23 16:22-0400 Diastolic blood pressure 73 mm[Hg] [facility]. Adriane [facility] 02-10-2023 16:22-0400 Heart rate 73 /min Dr. Adriane Mccoy [facility] 02-10-2023 16:22-0400 Respiratory rate 20 /[facility]-10-2023 16:22-0400 Systolic blood pressure 110 mm[Hg] [facility]. Adriane [facility] 02-10-2023 08:58-0400 PAIN LEVEL 0 {score} Dr. Adriane Mccoy [facility] 02-10-2023 03:21-0400 Body temperature 98.5 [degF] Dr. Adriane Lunamir [facility] 02-10-2023 03:21-0400 Diastolic blood pressure 67 mm[Hg] [facility]. Adriane [facility] 02-10-2023 03:21-0400 Heart rate 76 /[facility]-10-[facility]23 03:21-0400 Respiratory rate 17 /[facility]-10-2023 03:21-0400 Systolic blood pressure 104 mm[Hg] [facility]. Adriane [facility] 02-10-2023 02:32-0400 PAIN LEVEL 0 {score} Dr. Adriane Espitia [facility] 02-09-2023 19:58-0400 PAIN LEVEL 1 {score} [facility] 02-09-2023 18:46-0400 PAIN LEVEL 3 {score} [facility] 16:19-0400 Body temperature 98.8 [degF] Dr. Adriane Mccoy [facility] 02-09-2023 16:19-0400 Diastolic blood pressure 71 mm[Hg] [facility]. Adriane [facility] 02-09-2023 16:19-0400 Heart rate 81 /[facility]-09-2023 16:19-0400 Respiratory rate 18 /min Dr. Adriane Mccoy [facility] 02-09-2023 16:19-0400 Systolic blood pressure 113 mm[Hg] [facility]. Adriane [facility] 02-09-2023 08:24-0400 PAIN LEVEL 0 {score} Dr. Adriane Mccoy [facility] 02-09-2023 02:56-0400 PAIN LEVEL 0 {score} Dr. Adriane Mccoy [facility] 02-08-2023 19:51-0400 Body temperature 97.4 [degF] Dr. Adriane Mccoy [facility] 02-08-2023 19:51-0400 Diastolic blood pressure 77 mm[Hg] [facility]. Adriane [facility] 02-08-2023 19:51-0400 Heart rate 79 /min Dr. Adriane Espitia [facility] 02-08-2023 19:51-0400 Respiratory rate 16 /min Dr. Adriane Espitia [facility] 02-08-2023 19:51-0400 Systolic blood pressure 117 mm[Hg] [facility]. Adriane [facility] 02-08-2023 13:37-0400 Body weight 60.[address] [facility] 02-08-2023 08:24-0400 PAIN LEVEL 0 {score} Dr. Adriane Mccoy [facility] 02-07-2023 17:47-0400 Body temperature 97.5 [degF] Dr. Adriane Mccoy [facility] 02-07-2023 17:47-0400 Diastolic blood pressure 68 mm[Hg] [facility]. Adriane [facility] 02-07-2023 17:47-0400 Heart rate 83 /min Dr. Adriane Mccoy [facility] 02-07-2023 17:47-0400 Respiratory rate 20 /min Dr. Adriane Mccoy [facility] 02-07-2023 17:47-0400 Systolic blood pressure 119 mm[Hg] [facility]. Adriane [facility] 02-07-2023 13:59-0400 Body temperature 98.1 [degF] Dr. Adriane Mccoy [facility] 02-07-2023 13:59-0400 Diastolic blood pressure 87 mm[Hg] [facility]. Adriane [facility] 02-07-2023 13:59-0400 Heart rate 77 /[facility]-07-2023 13:59-0400 Respiratory rate 20 /min Dr. Adriane Espitia [facility] 02-07-2023 13:59-0400 Systolic blood pressure 146 mm[Hg] [facility]. Adriane [facility] 02-07-2023 08:51-0400 PAIN LEVEL 0 {score} Dr. Adriane Mccoy [facility] 02-07-2023 05:11-0400 Body temperature 98 [degF] Dr. Adriane Mccoy [facility] 02-07-2023 05:11-0400 Diastolic blood pressure 72 mm[Hg] [facility]. Adriane [facility] 02-07-2023 05:11-0400 Heart rate 70 /min Dr. Adriane Mccoy [facility] 02-07-2023 05:11-0400 Respiratory rate 16 /min Dr. Adriane Mccoy [facility] 02-07-2023 05:11-0400 Systolic blood pressure 112 mm[Hg] [facility] 02-07-2023 01:10-0400 PAIN LEVEL 0 {score} Dr. Adriane Mccoy [facility] 02-06-2023 18:12-0400 Body temperature 98.2 [degF] Dr. Adriane Mccoy [facility] 02-06-2023 18:12-0400 Diastolic blood pressure 74 mm[Hg] [facility]. Adriane [facility] 02-06-2023 18:12-0400 Heart rate 72 /[facility] 02-06-2023 18:12-0400 Respiratory rate 17 /[facility] 02-06-2023 18:12-0400 Systolic blood pressure 116 mm[Hg] [facility]. Adriane [facility] 02-06-2023 17:16-0400 PAIN LEVEL 0 {score} Dr. Adriane Mccoy [facility] 02-06-2023 09:10-0400 PAIN LEVEL 0 {score} [facility]23 03:23-0400 PAIN LEVEL 0 {score} [facility]-06-2023 01:40-0400 Body temperature 98.7 [degF] Dr. Adriane Mccoy [facility] 02-06-2023 01:40-0400 Diastolic blood pressure 73 mm[Hg] [facility]. Adriane [facility] 02-06-2023 01:40-0400 Heart rate 83 /min Dr. Adriane Mccoy [facility] 02-06-2023 01:40-0400 Respiratory rate 16 /[facility] 02-06-2023 01:40-0400 Systolic blood pressure 121 mm[Hg] [facility] 02-05-2023 18:38-0400 Body temperature 99 [degF] Dr. Adriane Mccoy [facility] 02-05-2023 18:38-0400 Diastolic blood pressure 67 mm[Hg] [facility]. Adriane [facility] 02-05-2023 18:38-0400 Heart rate 81 /[facility]-05-2023 18:38-0400 Respiratory rate 18 /min Dr. Adriane Mccoy [facility] 02-05-2023 18:38-0400 Systolic blood pressure 105 mm[Hg] [facility]. Adriane [facility] 02-05-2023 14:45-0400 Body temperature 97.6 [degF] [facility] 02-05-2023 14:45-0400 Diastolic blood pressure 65 mm[Hg] [facility]. Adriane [facility] 02-05-2023 14:45-0400 Heart rate 64 /min Dr. Adriane Mccoy [facility] 02-05-2023 14:45-0400 Respiratory rate 16 /[facility]-05-2023 14:45-0400 Systolic blood pressure 96 mm[Hg] [facility] 02-05-2023 08:13-0400 PAIN LEVEL 0 {score} Dr. Adriane Mccoy [facility] 02-05-2023 08:11-0400 PAIN LEVEL 0 {score} Dr. Adriane Mccoy [facility] 02-05-2023 05:35-0400 Body temperature 97.5 [degF] Dr. Adriane Mccoy [facility] 02-05-2023 05:35-0400 Diastolic blood pressure 71 mm[Hg] [facility]. Adriane [facility] 02-05-2023 05:35-0400 Heart rate 73 /min Dr. Adriane Mccoy [facility] 02-05-2023 05:35-0400 Respiratory rate 17 /min Dr. Adriane Mccoy [facility] 02-05-2023 05:35-0400 Systolic blood pressure 109 mm[Hg] [facility] Adriane [facility] 02-05-2023 03:14-0400 PAIN LEVEL 3 {score} Dr. Adriane Mccoy [facility] 02-05-2023 02:33-0400 PAIN LEVEL 2 {score} Dr. Adriane Mccoy [facility] 02-04-2023 08:52-0400 PAIN LEVEL 0 {score} Dr. Adriane Mccoy [facility] 02-04-2023 01:24-0400 Body temperature 98.6 [degF] Dr. Adriane Mccoy [facility] 02-04-2023 01:24-0400 Diastolic blood pressure 66 mm[Hg] [facility] 02-04-2023 01:24-0400 Heart rate 81 /min Dr. Adriane Mccoy [facility] 02-04-2023 01:24-0400 Respiratory rate 17 /[facility]-04-2023 01:24-0400 Systolic blood pressure 106 mm[Hg] [facility] 02-03-2023 16:05-0400 Body temperature 98.4 [degF] [facility] 02-03-2023 16:05-0400 Diastolic blood pressure 82 mm[Hg] [facility] Adriane [facility] 02-03-2023 16:05-0400 Heart rate 82 /min Dr. Adriane Mccoy [facility] 02-03-2023 16:05-0400 Respiratory rate 17 /min [facility] 02-03-2023 16:05-0400 Systolic blood pressure 123 mm[Hg] [facility] Adriane [facility] 02-03-2023 08:39-0400 PAIN LEVEL 0 {score} Dr. Adriane Mccoy [facility] 02-03-2023 00:36-0400 Oxygen saturation in Blood 95 % Dr. Adriane [facility] 02-03-2023 00:34-0400 Diastolic blood pressure 71 mm[Hg] [facility] 02-03-2023 00:34-0400 Systolic blood pressure 113 mm[Hg] [facility] Adriane [facility] 02-03-2023 00:33-0400 Respiratory rate 17 /min Dr. Adriane Mccoy [facility] 02-03-2023 00:30-0400 Heart rate 62 /min Dr. Adriane Mccoy [facility] 02-03-2023 00:29-0400 Body temperature 98.3 [degF] Dr. Adriane Mccoy [facility] 02-02-2023 23:38-0400 PAIN LEVEL 0 {score} Dr. Adriane Espitia [facility] 02-02-2023 15:55-0400 Body temperature 97.4 [degF] [facility]-02-2023 15:55-0400 Diastolic blood pressure 68 mm[Hg] [facility]ane [facility] 02-02-2023 15:55-0400 Heart rate 80 /[facility]-02-2023 15:55-0400 Respiratory rate 16 /min Dr. Adriane Mccoy [facility] 02-02-2023 15:55-0400 Systolic blood pressure 105 mm[Hg] [facility] 02-02-2023 12:21-0400 Body temperature 97.6 [degF] Dr. Adriane Mccoy [facility] 02-02-2023 12:21-0400 Diastolic blood pressure 81 mm[Hg] [facility] 02-02-2023 12:21-0400 Heart rate 81 /min Dr. Adriane Mccoy [facility] 02-02-2023 12:21-0400 Respiratory rate 16 /min [facility] 02-02-2023 12:21-0400 Systolic blood pressure 131 mm[Hg] [facility] 02-02-2023 08:10-0400 PAIN LEVEL 0 {score} Dr. Adriane Mccoy [facility] 02-02-2023 02:12-0400 Body temperature 98.1 [degF] Dr. Adriane Espitia [facility] 02-02-2023 02:12-0400 Diastolic blood pressure 70 mm[Hg] [facility] Adriane [facility] 02-02-2023 02:12-0400 Heart rate 71 /[facility]-02-2023 02:12-0400 Respiratory rate 18 /min Dr. Adriane Espitia [facility] 02-02-2023 02:12-0400 Systolic blood pressure 112 mm[Hg] [facility] Adriane [facility] 02-02-2023 00:43-0400 PAIN LEVEL 0 {score} Dr. Adriane Mccoy [facility] 02-01-2023 22:14-0400 Oxygen saturation in Blood 94 % Dr. Adriane [facility] 02-01-2023 22:11-0400 Oxygen saturation in Blood 94 % Dr. Adriane [facility] 02-01-2023 17:18-0400 PAIN LEVEL 0 {score} Dr. Adriane Mccoy [facility] 02-01-2023 15:46-0400 Body temperature 98.3 [degF] Dr. Adriane Mccoy [facility] 02-01-2023 15:46-0400 Diastolic blood pressure 70 mm[Hg] [facility] 02-01-2023 15:46-0400 Heart rate 70 /min Dr. Adriane Mccoy [facility] 02-01-2023 15:46-0400 Respiratory rate 19 /[facility]-01-2023 15:46-0400 Systolic blood pressure 109 mm[Hg] [facility] Adriane [facility] 02-01-2023 14:56-0400 Body weight 65.[address] [facility]-01-2023 14:36-0400 Body temperature 98.4 [degF] Dr. Adriane Mccoy [facility] 02-01-2023 14:36-0400 Diastolic blood pressure 80 mm[Hg] [facility] Adriane [facility] 02-01-2023 14:36-0400 Heart rate 70 /[facility] 02-01-2023 14:36-0400 Respiratory rate 18 /min Dr. Adriane Espitia [facility] 02-01-2023 14:36-0400 Systolic blood pressure 135 mm[Hg] [facility] Adriane [facility] 02-01-2023 14:26-0400 Body weight 65.[address] Adriane Mccoy [facility] 02-01-2023 09:47-0400 PAIN LEVEL 0 {score} Dr. Adriane Mccoy [facility] 02-01-2023 05:16-0400 Body temperature 97.6 [degF] Dr. Adriane Mccoy [facility] 02-01-2023 05:16-0400 Diastolic blood pressure 71 mm[Hg] [facility] Adriane [facility] 02-01-2023 05:16-0400 Heart rate 75 /min Dr. Adriane Mccoy [facility] 02-01-2023 05:16-0400 Respiratory rate 18 /[facility]-01-2023 05:16-0400 Systolic blood pressure 117 mm[Hg] [facility] Adriane [facility] 01-31-2023 16:00-0400 Body temperature 98.1 [degF] Dr. Adriane Mccoy [facility] 01-31-2023 16:00-0400 Diastolic blood pressure 71 mm[Hg] [facility] Adriane [facility] 01-31-2023 16:00-0400 Heart rate 76 /min Dr. Adriane Mccoy [facility] 01-31-2023 16:00-0400 Respiratory rate 17 /min Dr. Adriane Mccoy [facility] 01-31-2023 16:00-0400 Systolic blood pressure 109 mm[Hg] [facility] Adriane [facility] 01-31-2023 08:45-0400 PAIN LEVEL 0 {score} Dr. Adriane Mccoy [facility] 01-30-2023 08:08-0400 PAIN LEVEL 0 {score} Dr. Adriane Mccoy [facility] 01-30-2023 01:17-0400 Body temperature 99 [degF] Dr. Adriane Mccoy [facility] 01-30-2023 01:17-0400 Diastolic blood pressure 76 mm[Hg] [facility] 01-30-2023 01:17-0400 Heart rate 86 /min Dr. Adriane Mccoy [facility] 01-30-2023 01:17-0400 Respiratory rate 17 /[facility] 01-30-2023 01:17-0400 Systolic blood pressure 127 mm[Hg] [facility]. Adriane [facility] 01-29-2023 18:43-0400 Body temperature 97.1 [degF] Dr. Adriane Mccoy [facility] 01-29-2023 18:43-0400 Diastolic blood pressure 74 mm[Hg] [facility]. Adriane [facility] 01-29-2023 18:43-0400 Heart rate 84 /min Dr. Adriane Mccoy [facility] 01-29-2023 18:43-0400 Respiratory rate 17 /min Dr. Adriane Mccoy [facility] 01-29-2023 18:43-0400 Systolic blood pressure 128 mm[Hg] [facility] 01-29-2023 13:51-0400 Body temperature 98.5 [degF] Dr. Adriane Mccoy [facility] 01-29-2023 13:51-0400 Diastolic blood pressure 76 mm[Hg] [facility] 01-29-2023 13:51-0400 Heart rate 74 /min Dr. Adriane Mccoy [facility] 01-29-2023 13:51-0400 Respiratory rate 17 /min Dr. Adriane Mccoy [facility] 01-29-2023 13:51-0400 Systolic blood pressure 130 mm[Hg] [facility] Adriane [facility] 01-29-2023 08:20-0400 PAIN LEVEL 0 {score} [facility]23 05:12-0400 PAIN LEVEL 0 {score} [facility] 01-29-2023 01:28-0400 Body temperature 98.1 [degF] Dr. Adriane Mccoy [facility] 01-29-2023 01:28-0400 Diastolic blood pressure 74 mm[Hg] [facility] Adriane [facility] 01-29-2023 01:28-0400 Heart rate 72 /min Dr. Adriane Mccoy [facility] 01-29-2023 01:28-0400 Respiratory rate 16 /min Dr. Adriane Mccoy [facility] 01-29-2023 01:28-0400 Systolic blood pressure 127 mm[Hg] [facility]. Adriane [facility] 01-28-2023 19:25-0400 Body temperature 98.2 [degF] Dr. Adriane Mccoy [facility] 01-28-2023 19:25-0400 Diastolic blood pressure 75 mm[Hg] [facility] 01-28-2023 19:25-0400 Heart rate 75 /min Dr. Adriane Mccoy [facility] 01-28-2023 19:25-0400 Respiratory rate 17 /min Dr. Adriane Mccoy [facility] 01-28-2023 19:25-0400 Systolic blood pressure 121 mm[Hg] [facility]. Adriane [facility] 01-28-2023 11:56-0400 Body temperature 97.4 [degF] Dr. Adriane Mccoy [facility] 01-28-2023 11:56-0400 Diastolic blood pressure 80 mm[Hg] [facility]. Adriane [facility] 01-28-2023 11:56-0400 Heart rate 88 /min Dr. Adriane Mccoy [facility] 01-28-2023 11:56-0400 Respiratory rate 21 /min Dr. Adriane Mccoy [facility] 01-28-2023 11:56-0400 Systolic blood pressure 124 mm[Hg] [facility]. Adriane [facility] 01-28-2023 08:31-0400 PAIN LEVEL 0 {score} Dr. Adriane Mccoy [facility] 01-28-2023 04:36-0400 PAIN LEVEL 0 {score} Dr. Adriane Mccoy [facility] 01-28-2023 03:39-0400 Body temperature 98.3 [degF] Dr. Adriane Mccoy [facility] 01-28-2023 03:39-0400 Diastolic blood pressure 70 mm[Hg] [facility] Adriane [facility] 01-28-2023 03:39-0400 Heart rate 81 /min Dr. Adriane Mccoy [facility] 01-28-2023 03:39-0400 Respiratory rate 16 /min Dr. Adriane Mccoy [facility] 01-28-2023 03:39-0400 Systolic blood pressure 120 mm[Hg] [facility]. Adriane [facility] 01-27-2023 16:03-0400 Body temperature 98.5 [degF] Dr. Adriane Lunamir [facility] 01-27-2023 16:03-0400 Diastolic blood pressure 58 mm[Hg] [facility]. Adriane [facility] 01-27-2023 16:03-0400 Heart rate 77 /min Dr. Adriane Mccoy [facility] 01-27-2023 16:03-0400 Respiratory rate 17 /[facility] 01-27-2023 16:03-0400 Systolic blood pressure 113 mm[Hg] [facility]. Adriane [facility] 01-27-2023 12:20-0400 Body temperature 98.1 [degF] Dr. Adriane Mccoy [facility] 01-27-2023 12:20-0400 Diastolic blood pressure 71 mm[Hg] [facility]. Adriane [facility] 01-27-2023 12:20-0400 Heart rate 84 /min Dr. Adriane Mccoy [facility] 01-27-2023 12:20-0400 Respiratory rate 19 /min Dr. Adriane Mccoy [facility] 01-27-2023 12:20-0400 Systolic blood pressure 121 mm[Hg] [facility]. Adriane [facility] 01-27-2023 11:45-0400 Body weight 64.[address] Adriane Lunamir [facility] 01-27-2023 08:25-0400 PAIN LEVEL 0 {score} Dr. Adriane Mccoy [facility] 01-27-2023 03:46-0400 Body temperature 98.4 [degF] [facility] 01-27-2023 03:46-0400 Diastolic blood pressure 74 mm[Hg] [facility]ane [facility] 01-27-2023 03:46-0400 Heart rate 76 /min Dr. Adriane Mccoy [facility] 01-27-2023 03:46-0400 Respiratory rate 16 /min Dr. Adriane Espitia [facility] 01-27-2023 03:46-0400 Systolic blood pressure 115 mm[Hg] [facility]ane [facility] 01-26-2023 23:42-0400 PAIN LEVEL 0 {score} Dr. Adriane Mccoy [facility] 01-26-2023 15:51-0400 Body temperature 98.3 [degF] Dr. Adriane Mccoy [facility] 01-26-2023 15:51-0400 Diastolic blood pressure 73 mm[Hg] [facility]ane [facility] 01-26-2023 15:51-0400 Heart rate 80 /min Dr. Adriane Mccoy [facility] 01-26-2023 15:51-0400 Respiratory rate 19 /min Dr. Adriane Espitia [facility] 01-26-2023 15:51-0400 Systolic blood pressure 115 mm[Hg] [facility] 01-26-2023 08:18-0400 PAIN LEVEL 0 {score} Dr. Adriane Mccoy [facility] 01-25-2023 22:35-0400 Body weight 63.[address] Adriane Espitia [facility] 01-25-2023 19:57-0400 Body weight 63.[address] Adriane Espitia [facility] 01-25-2023 16:56-0400 Body temperature 97.6 [degF] Dr. Adriane Mccoy [facility] 01-25-2023 16:56-0400 Diastolic blood pressure 72 mm[Hg] [facility]ane [facility] 01-25-2023 16:56-0400 Heart rate 75 /min Dr. Adriane Mccoy [facility] 01-25-2023 16:56-0400 Oxygen saturation in Blood 95 % Dr. Adriane [facility] 01-25-2023 16:56-0400 Respiratory rate 18 /min Dr. Adriane Mccoy [facility] 01-25-2023 16:56-0400 Systolic blood pressure 130 mm[Hg] [facility] 01-25-2023 11:33-0400 Body temperature 97.1 [degF] Dr. Adriane Mccoy [facility] 01-25-2023 11:33-0400 Diastolic blood pressure 81 mm[Hg] [facility]ane [facility] 01-25-2023 11:33-0400 Heart rate 71 /min Dr. Adriane Mccoy [facility] 01-25-2023 11:33-0400 Respiratory rate 16 /min Dr. Adriane Mccoy [facility] 01-25-2023 11:33-0400 Systolic blood pressure 133 mm[Hg] [facility] 01-25-2023 08:43-0400 PAIN LEVEL 0 {score} [facility]-24-[facility]23 19:59-0400 Body weight 63.[address] [facility] 01-24-2023 17:41-0400 Body temperature 97.1 [degF] Dr. Adriane Mccoy [facility] 01-24-2023 17:41-0400 Diastolic blood pressure 73 mm[Hg[facility] 01-24-2023 17:41-0400 Heart rate 60 /[facility] 01-24-2023 17:41-0400 Oxygen saturation in Blood 97 % [facility] 01-24-2023 17:41-0400 Respiratory rate 20 /min Dr. Adriane Mccoy [facility] 01-24-2023 17:41-0400 Systolic blood pressure 141 mm[Hg] [facility] 01-24-2023 13:57-0400 Body weight 65.[address] Adriane Mccoy [facility] 01-24-2023 12:35-0400 Body temperature 98.6 [degF] Dr. Adriane Mccoy [facility] 01-24-2023 12:35-0400 Diastolic blood pressure 72 mm[Hg] [facility] 01-24-2023 12:35-0400 Heart rate 71 /[facility]-24-[facility]23 12:35-0400 Respiratory rate 17 /min Dr. Adriane Mccoy [facility] 01-24-2023 12:35-0400 Systolic blood pressure 131 mm[Hg] [facility] 01-24-2023 08:31-0400 PAIN LEVEL 0 {score} [facility] 01-24-[facility]23 01:01-0400 Body temperature 97.5 [degF] Dr. Adriane Mccoy [facility] 01-24-2023 01:01-0400 Diastolic blood pressure 73 mm[Hg] [facility] 01-24-2023 01:01-0400 Heart rate 61 /min Dr. Adriane Mccoy [facility] 01-24-2023 01:01-0400 Respiratory rate 16 /min Dr. Adriane Mccoy [facility] 01-24-2023 01:01-0400 Systolic blood pressure 119 mm[Hg] [facility] 01-23-2023 23:11-0400 PAIN LEVEL 0 {score} Dr. Adriane Mccoy [facility] 01-23-2023 19:27-0400 Body weight 64.[address] Adriane Mccoy [facility] 01-23-2023 18:03-0400 PAIN LEVEL 0 {score} Dr. Adriane Mccoy [facility] 01-23-2023 17:38-0400 Oxygen saturation in Blood 96 % [facility] 01-23-2023 17:38-0400 PAIN LEVEL 0 {score} Dr. Adriane Mccoy [facility] 01-23-2023 16:19-0400 Body temperature 97.6 [degF] Dr. Adriane Mccoy [facility] 01-23-2023 16:19-0400 Diastolic blood pressure 73 mm[Hg] [facility] 01-23-2023 16:19-0400 Heart rate 70 /min Dr. Adriane Mccoy [facility] 01-23-2023 16:19-0400 Respiratory rate 16 /min Dr. Adriane Mccoy [facility] 01-23-2023 16:19-0400 Systolic blood pressure 119 mm[Hg] [facility] 01-01-2023 14:30-0400 Body height 168.91 cm David Caputo Other [employer] Other 01-01-2023 14:30-0400 Body mass index (BMI) [Ratio] 20.67 kg/m2 David Caputo Other [employer] Other 01-01-2023 14:30-0400 Body weight 58.97 kg David Caputo Other [employer] Other 01-01-2023 14:30-0400 Diastolic blood pressure 59 mm[Hg] David Caputo Other [employer] Other 01-01-2023 14:30-0400 Systolic blood pressure 87 mm[Hg] David Caputo Other [employer] Other 12-26-2022 16:02-0400 Body temperature 97.9 [degF] Ma Sand Work Phone: [facility] 12-26-2022 16:02-0400 Diastolic blood pressure 58 mm[Hg] Ma Sand Work Phone: [facility] 12-26-2022 16:02-0400 Heart rate 76 /min Ma Sand Work Phone: [facility] 12-26-2022 16:02-0400 Respiratory rate 16 /min Ma Sand Work Phone: [facility] 12-26-2022 16:02-0400 SaO2% (BldA) [Mass fraction] 100 % Ma Sand Work Phone: [facility] 12-26-2022 16:02-0400 Systolic blood pressure 89 mm[Hg] Ma Sand Work Phone: [facility] 12-04-2022 14:30-0400 Body height 168.91 cm David Caputo Other [employer] Other 12-04-2022 14:30-0400 Body mass index (BMI) [Ratio] 20.67 kg/m2 David Caputo Other [employer] Other 12-04-2022 14:30-0400 Body weight 58.97 kg David Caputo Other [employer] Other 12-04-2022 14:30-0400 Diastolic blood pressure 68 mm[Hg] David Caputo Other [employer] Other 12-04-2022 14:30-0400 SaO2% (BldA) [Mass fraction] 93 % David Caputo Other [employer] Other 12-04-2022 14:30-0400 Systolic blood pressure 109 mm[Hg] David Caputo Other [employer] Other 11-28-2022 15:14-0400 Body height 170.8 cm Zahra Buitrago MD Work Phone: [facility] 11-28-2022 15:14-0400 Body temperature 97.2 [degF] Zahra Buitrago MD Work Phone: [facility] 11-28-2022 15:14-0400 Diastolic blood pressure 63 mm[Hg] Zahra Buitrgao MD Work Phone: [facility] 11-28-2022 15:14-0400 Heart rate 74 /min Zahra Buitrago MD Work Phone: [facility] 11-28-2022 15:14-0400 Respiratory rate 18 /min Zahra Buitrago MD Work Phone: [facility] 11-28-2022 15:14-0400 SaO2% (BldA) [Mass fraction] 98 % Zahra Buitrago MD Work Phone: [facility] 11-28-2022 15:14-0400 Systolic blood pressure 92 mm[Hg] Zahra Buitrago MD Work Phone: [facility] 10-31-2022 15:31-0400 Body height 170.8 cm Ma Sand Work Phone: [facility] 10-31-2022 15:31-0400 Body temperature 97.59 [degF] Ma Sand Work Phone: [facility] 10-31-2022 15:31-0400 Body weight 64.41 kg Ma Sand Work Phone: [facility] 10-31-2022 15:31-0400 Diastolic blood pressure 63 mm[Hg] Ma Sand Work Phone: [facility] 10-31-2022 15:31-0400 Heart rate 73 /min Ma Sand Work Phone: [facility] 10-31-2022 15:31-0400 Respiratory rate 16 /min Ma Sand Work Phone: [facility] 10-31-2022 15:31-0400 SaO2% (BldA) [Mass fraction] 98 % Ma Sand Work Phone: [facility] 10-31-2022 15:31-0400 Systolic blood pressure 115 mm[Hg] Ma Sand Work Phone: [facility] 09-05-2022 14:17-0500 Body temperature 97.5 [degF] Ma Sand Work Phone: [facility] 09-05-2022 14:17-0500 Diastolic blood pressure 67 mm[Hg] Ma Sand Work Phone: [facility] 09-05-2022 14:17-0500 Heart rate 65 /min Ma Sand Work Phone: [facility] 09-05-2022 14:17-0500 Respiratory rate 18 /min Ma Sand Work Phone: [facility] 09-05-2022 14:17-0500 SaO2% (BldA) [Mass fraction] 97 % Lamont Hart Work Phone: [facility] 09-05-2022 14:17-0500 Systolic blood pressure 119 mm[Hg] Lamont Hart Work Phone: [facility] 08-08-2022 14:39-0500 Body temperature 97.9 [degF] Zahra Buitrago MD Work Phone: [facility] 08-08-2022 14:39-0500 Body weight 64.41 kg Zahra Buitrago MD Work Phone: [facility] 08-08-2022 14:39-0500 Diastolic blood pressure 76 mm[Hg] Zahra Buitrago MD Work Phone: [facility] 08-08-2022 14:39-0500 Heart rate 88 /min Zahra Buitrago MD Work Phone: [facility] 08-08-2022 14:39-0500 Respiratory rate 40 /min Zahra Buitrago MD Work Phone: [facility] 08-08-2022 14:39-0500 SaO2% (BldA) [Mass fraction] 94 % Zahra Buitrago MD Work Phone: [facility] 08-08-2022 14:39-0500 Systolic blood pressure 111 mm[Hg] Zahra Buitrago MD Work Phone: [facility] 07-17-2022 15:45-0500 Body height 168.91 cm David Caputo Other [employer] Other 07-17-2022 15:45-0500 Body mass index (BMI) [Ratio] 22.57 kg/m2 David Caputo Other [employer] Other 07-17-2022 15:45-0500 Body weight 64.41 kg David Caputo Other [employer] Other 07-17-2022 15:45-0500 Diastolic blood pressure 58 mm[Hg] David Caputo Other [employer] Other 07-17-2022 15:45-0500 SaO2% (BldA) [Mass fraction] 99 % David Caputo Other [employer] Other 07-17-2022 15:45-0500 Systolic blood pressure 102 mm[Hg] David Caputo Other [employer] Other 07-03-2022 13:55-0500 Body height 170.8 cm Zahra Buitrago MD Work Phone: [facility] 07-03-2022 13:55-0500 Body temperature 97.39 [degF] Zahra Buitrago MD Work Phone: [facility] 07-03-2022 13:55-0500 Body weight 67.31 kg Zahra Buitrago MD Work Phone: [facility] 07-03-2022 13:55-0500 Diastolic blood pressure 82 mm[Hg] Zahra Buitrago MD Work Phone: [facility] 07-03-2022 13:55-0500 Heart rate 77 /min Zahra Buitrago MD Work Phone: [facility] 07-03-2022 13:55-0500 Respiratory rate 16 /min Zahra Buitrago MD Work Phone: [facility] 07-03-2022 13:55-0500 SaO2% (BldA) [Mass fraction] 100 % Zahra Buitrago MD Work Phone: [facility] 07-03-2022 13:55-0500 Systolic blood pressure 126 mm[Hg] Zahra Buitrago MD Work Phone: [facility] 06-06-2022 13:32-0500 Body height 170.8 cm Zahra Buitrago MD Work Phone: [facility] 06-06-2022 13:32-0500 Body temperature 97.11 [degF] Zahra Buitrago MD Work Phone: [facility] 06-06-2022 13:32-0500 Body weight 65.77 kg Zahra Buitrago MD Work Phone: [facility] 06-06-2022 13:32-0500 Diastolic blood pressure 60 mm[Hg] Zahra Buitrago MD Work Phone: [facility] 06-06-2022 13:32-0500 Heart rate 66 /min Zahra Buitrago MD Work Phone: [facility] 06-06-2022 13:32-0500 Respiratory rate 24 /min Zahra Buitrago MD Work Phone: [facility] 06-06-2022 13:32-0500 SaO2% (BldA) [Mass fraction] 100 % Zahra Buitrago MD Work Phone: [facility] 06-06-2022 13:32-0500 Systolic blood pressure 109 mm[Hg] Zahra Buitrago MD Work Phone: [facility] 05-08-2022 13:45-0500 Body height 170.8 cm Zahra Buitrago MD Work Phone: [facility] 05-08-2022 13:45-0500 Body temperature 97.81 [degF] Zahra Buitrago MD Work Phone: [facility] 05-08-2022 13:45-0500 Body weight 62.41 kg Zahra Buitrago MD Work Phone: [facility] 05-08-2022 13:45-0500 Diastolic blood pressure 58 mm[Hg] Zahra Buitrago MD Work Phone: [facility] 05-08-2022 13:45-0500 Heart rate 63 /min Zahra Buitrago MD Work Phone: [facility] 05-08-2022 13:45-0500 Respiratory rate 16 /min Zahra Buitrago MD Work Phone: [facility] 05-08-2022 13:45-0500 SaO2% (BldA) [Mass fraction] 97 % Zahra Buitrago MD Work Phone: [facility] 05-08-2022 13:45-0500 Systolic blood pressure 102 mm[Hg] Zahra Buitrago MD Work Phone: [facility] 04-10-2022 12:47-0400 Body height 170.8 cm Zahra Buitrago MD Work Phone: [facility] 04-10-2022 12:47-0400 Body temperature 97.7 [degF] Zahra Buitrago MD Work Phone: [facility] 04-10-2022 12:47-0400 Body weight 66.04 kg Zahra Buitrago MD Work Phone: [facility] 04-10-2022 12:47-0400 Diastolic blood pressure 70 mm[Hg] Zahra Buitrago MD Work Phone: [facility] 04-10-2022 12:47-0400 Heart rate 60 /min Zahra Buitrago MD Work Phone: [facility] 04-10-2022 12:47-0400 Respiratory rate 16 /min Zahra Buitrago MD Work Phone: [facility] 04-10-2022 12:47-0400 SaO2% (BldA) [Mass fraction] 99 % Zahra Buitrago MD Work Phone: [facility] 04-10-2022 12:47-0400 Systolic blood pressure 125 mm[Hg] Zahra Buitrago MD Work Phone: [facility] 03-13-2022 12:57-0400 Body height 170.8 cm Rola Gordon APRN.OCCUPATIONAL HEALTH NURSE MANAGER Work Phone: [facility] 03-13-2022 12:57-0400 Body temperature 97.11 [degF] Rola Gordon COMMERCIAL CREDIT OFFICER.OCCUPATIONAL HEALTH NURSE MANAGER Work Phone: [facility] 03-13-2022 12:57-0400 Body weight 65.77 kg Rola Gordon COMMERCIAL CREDIT OFFICER.OCCUPATIONAL HEALTH NURSE MANAGER Work Phone: [facility] 03-13-2022 12:57-0400 Diastolic blood pressure 68 mm[Hg] Rola Gordon COMMERCIAL CREDIT OFFICER.OCCUPATIONAL HEALTH NURSE MANAGER Work Phone: [facility] 03-13-2022 12:57-0400 Heart rate 74 /min Rola Gordon COMMERCIAL CREDIT OFFICER.OCCUPATIONAL HEALTH NURSE MANAGER Work Phone: [facility] 03-13-2022 12:57-0400 Respiratory rate 20 /min Rola Gordon APRN.OCCUPATIONAL HEALTH NURSE MANAGER Work Phone: [facility] 03-13-2022 12:57-0400 SaO2% (BldA) [Mass fraction] 100 % Rola Gordon APRN.OCCUPATIONAL HEALTH NURSE MANAGER Work Phone: [facility] 03-13-2022 12:57-0400 Systolic blood pressure 119 mm[Hg] Rola Gordon COMMERCIAL CREDIT OFFICER.OCCUPATIONAL HEALTH NURSE MANAGER Work Phone: [facility] 02-13-2022 14:09-0400 Body height 170.8 cm Zahra Buitrago MD Work Phone: [facility] 02-13-2022 14:09-0400 Body temperature 97.81 [degF] Zahra Buitrago MD Work Phone: [facility] 02-13-2022 14:09-0400 Body weight 65.14 kg Zahra Buitrago MD Work Phone: [facility] 02-13-2022 14:09-0400 Diastolic blood pressure 74 mm[Hg] Zahra Buitrago MD Work Phone: [facility] 02-13-2022 14:09-0400 Heart rate 62 /min Zahra Buitrago MD Work Phone: [facility] 02-13-2022 14:09-0400 Respiratory rate 16 /min Zahra Buitrago MD Work Phone: [facility] 02-13-2022 14:09-0400 SaO2% (BldA) [Mass fraction] 95 % Zahra Buitrago MD Work Phone: [facility] 02-13-2022 14:09-0400 Systolic blood pressure 108 mm[Hg] Zahra Buitrago MD Work Phone: [facility] 02-04-2022 13:50-0400 63.6 1 David Caputo Work Phone: [facility] [address] DO Work Phone: Comment on above: [facility] 01-16-2022 14:00-0400 Body height 172.72 cm Nate Hanson Other [facility] [employer] Other 01-16-2022 14:00-0400 Body mass index (BMI) [Ratio] 21.28 kg/m2 Nate Hanson Other [facility] [employer] Other 01-16-2022 14:00-0400 Body weight 63.5 kg Nate Hanson Other [facility] [employer] Other 12-05-2021 14:57-0400 Body height 170.8 cm Zahra Buitrago MD Work Phone: [facility] 12-05-2021 14:57-0400 Body temperature 97.39 [degF] Zahra Buitrago MD Work Phone: [facility] 12-05-2021 14:57-0400 Body weight 73.48 kg Zahra Buitrago MD Work Phone: [facility] 12-05-2021 14:57-0400 Diastolic blood pressure 85 mm[Hg] Zahra Buitrago MD Work Phone: [facility] 12-05-2021 14:57-0400 Heart rate 80 /min Zahra Buitrago MD Work Phone: [facility] 12-05-2021 14:57-0400 Respiratory rate 16 /min Zahra Buitrago MD Work Phone: [facility] 12-05-2021 14:57-0400 SaO2% (BldA) [Mass fraction] 97 % Zahra Buitrago MD Work Phone: [facility] 12-05-2021 14:57-0400 Systolic blood pressure 123 mm[Hg] Zahra Buitrago MD Work Phone: [facility] Encounters Encounter Date Encounter Type Care Provider Facility Start: 07-17-2023 Orders Only Rick vanessa DO Work Phone: [facility] Comment on above: Iron deficiency anem ia, unspecified iron deficiency anemia type (Primary Dx); History of gastric cancer; Rectal bleeding Start: 07-14-2023 End: 07-14-2023 ambulatory David Caputo Other [employer] Other Start: 07-14-2023 Telephone encounter David Caputo [facility] Start: 06-30-2023 End: 06-30-2023 ambulatory David Caputo Other [employer] Other Start: 06-30-2023 Telephone encounter David Caputo [facility] Start: 06-04-2023 End: 06-04-2023 ambulatory David Caputo Other [employer] Other Start: 06-04-2023 Office outpatient vi sit 25 minutes David Caputo [facility] Start: 05-22-2023 End: 05-22-2023 ambulatory David Caputo Other [employer] Other Start: 05-22-2023 Telephone encounter David Caputo [facility] Start: 05-19-2023 End: 05-19-2023 ambulatory David Caputo Other [employer] Other Start: 05-19-2023 Telephone encounter David Caupto [facility] Start: 05-06-2023 End: 05-06-2023 ambulatory David Caputo Other [employer] Other Start: 05-06-2023 Telephone encounter David Caputo [facility] Start: 04-14-2023 End: 04-14-2023 ambulatory David Caputo Other [employer] Other Start: 04-14-2023 Telephone encounter David Caputo [facility] Start: 04-09-2023 End: 04-09-2023 ambulatory DAVID CAPUTO Facility:[facility] Start: 04-09-2023 End: 04-09-2023 Nursing evaluation of patient and report Ma Nurse Zelalem Hart Work Phone: Hematology/Oncology Comment on above: Macrocytosis (Primar y Dx); Abnormal weight loss; Adenocarcinoma (HCC); Cancer of ampulla of Vater (HCC) Start: 04-07-2023 End: 04-07-2023 ambulatory David Caputo Other [employer] Other Start: 04-07-2023 Telephone encounter David Caputo [facility] Start: 03-31-2023 End: 03-31-2023 ambulatory David Capuot Other [employer] Other Start: 03-31-2023 Telephone encounter David Caputo [facility] Start: 03-30-2023 Refill Zahra ibrahim MD Work Phone: Hematology/Oncology Comment on above: Refill Request Start: 03-20-2023 End: 03-20-2023 ambulatory David Caputo Other [employer] Other Start: 03-20-2023 Telephone encounter David Caputo [facility] Start: 03-19-2023 End: 03-19-2023 ambulatory David Caputo Other [employer] Other Start: 03-19-2023 Telephone encounter David Caputo [facility] Start: 03-16-2023 End: 03-16-2023 ambulatory David Caputo Other [employer] Other Start: 03-16-2023 Telephone encounter David Caputo [facility] Start: 03-11-2023 Telephone encounter Zahra foster MD Work Phone: [facility] Comment on above: Future Appointment; Results Start: 03-11-2023 End: 03-11-2023 ambulatory DAVID CAPUTO Facility:[facility] Start: 03-11-2023 End: 03-11-2023 Nursing evaluation of [...] Start: 03-11-2023 End: 03-11-2023 ambulatory DAVID CAPUTO Facility:[facility] Start: 03-10-2023 End: 03-10-2023 ambulatory David Caputo Other [employer] Other Start: 03-10-2023 Telephone encounter David Caputo [facility] Start: 03-09-2023 End: 03-09-2023 ambulatory David Caputo Other [employer] Other Start: 03-09-2023 Telephone encounter David Caputo [facility] Start: 03-05-2023 End: 03-05-2023 ambulatory David Caputo Other [employer] Other Start: 03-05-2023 Office outpatient vi sit 15 minutes David Caputo [facility] Start: 03-05-2023 Telephone encounter Zahra foster MD [...] 02-20-2023 ambulatory DAVID CAPUTO [facility] [employer] Other Start: 02-19-2023 Telephone encounter David Caputo [facility] Start: 02-17-2023 Telephone encounter Zahra foster MD Work Phone: Hematology/Oncology Comment on above: Lab Orders Start: 02-13-2023 End: 02-13-2023 ambulatory David Caputo Other [employer] Other Start: 02-13-2023 Telephone encounter David Caputo [facility] Start: 02-10-2023 End: 02-10-2023 ambulatory David Caputo Facility:[facility] Start: 02-10-2023 End: 02-10-2023 Patient encounter procedure MD David Captuo Work Phone: [facility] Start: 01-27-2023 End: 01-27-2023 ambulatory Adriane Espitia Facility:[facility] Start: 01-27-2023 End: 01-27-2023 ambulatory MD David Caputo Work Phone: [facility] Work Phone: Start: 01-27-2023 End: 01-27-2023 Patient encounter procedure MD David Caputo Work Phone: [facility] Start: 01-21-2023 Telephone encounter Susan kurtz RN Work Phone: Hematology/Oncology Comment on above: Hospital Admission Start: 01-14-2023 End: 01-14-2023 ambulatory David Caputo Other [employer] Other Start: 01-14-2023 Telephone encounter David Caputo [facility] Start: 01-13-2023 Telephone encounter Cassandra Cunningham Hematology/Oncology Comment on above: Results; Appointment Start: 01-12-2023 End: 01-12-2023 ambulatory David Caputo Other [employer] Other Start: 01-12-2023 Telephone encounter David Caputo [facility] Start: 01-01-2023 End: 01-01-2023 ambulatory David Caputo Other [employer] Other Start: 01-01-2023 Office outpatient vi sit 15 minutes David Caputo [facility] Start: 12-26-2022 End: 12-26-2022 ambulatory DAVID CAPUTO Facility:[facility] Start: 12-26-2022 End: 12-26-2022 Nursing evaluation of patient and report Ma Nurse Zelalem Hart Work Phone: Hematology/Oncology Comment on above: Macrocytosis (Primar y Dx); Abnormal weight loss; Adenocarcinoma (HCC); Cancer of ampulla of Vater (HCC) Start: 12-08-2022 End: 12-08-2022 ambulatory David Caputo Other [employer] Other Start: 12-08-2022 Telephone encounter David Caputo [facility] Start: 12-04-2022 End: 12-04-2022 ambulatory David Caputo Other [employer] Other Start: 12-04-2022 Office outpatient vi sit 15 minutes David Caputo [facility] Start: 11-28-2022 End: 11-28-2022 ambulatory DAVID CAPUTO Facility:[facility] Start: 11-28-2022 End: 11-28-2022 Nursing evaluation of patient and report Lamont Masterson Sand Work Phone: Hematology/Oncology Comment on above: Macrocytosis [...] 11-27-2022 End: 11-27-2022 ambulatory David Caputo Other [employer] Other Start: 11-27-2022 Telephone encounter David Caputo [facility] Start: 11-21-2022 End: 11-21-2022 ambulatory Davdi Caputo Other [employer] Other Start: 11-21-2022 Telephone encounter David Caputo [facility] Start: 11-04-2022 End: 11-04-2022 ambulatory David Caputo Other [employer] Other Start: 11-04-2022 Telephone encounter David Caputo [facility] Start: 10-31-2022 End: 10-31-2022 ambulatory DAVID CAPUTO Facility:[facility] Start: 10-31-2022 End: 10-31-2022 Nursing evaluation of patient and report Lamont Masterson Sand Work Phone: Hematology/Oncology Comment on above: Macrocytosis (Primar y Dx); Abnormal weight loss; Adenocarcinoma (HCC); Cancer of ampulla of Vater (HCC) Start: 10-28-2022 End: 10-28-2022 ambulatory Zahra Buitrago MD Work Phone: [employer] Other Comment on above: Refill Request Start: 10-28-2022 Telephone encounter David Caputo [facility] Start: 10-03-2022 End: 10-04-2022 ambulatory DAVID CAPUTO Facility:[facility] Start: 10-03-2022 End: 10-03-2022 Nursing evaluation of patient and report Lamont Gomez Zelalem Hailey Work Phone: Hematology/Oncology Comment on above: Macrocytosis (Primar y Dx); Abnormal weight loss; Adenocarcinoma (HCC); Cancer of ampulla of Vater (HCC) Start: 09-29-2022 End: 09-29-2022 ambulatory David Caputo Other [employer] Other Start: 09-29-2022 Telephone encounter David Caputo [facility] Start: 09-17-2022 End: 09-17-2022 ambulatory David Caputo Other [employer] Other Start: 09-17-2022 Telephone encounter David Caputo [facility] Start: 09-16-[address] David Caputo Facility: Start: 09-08-2022 End: 09-08-2022 ambulatory David Caputo Other [employer] Other Start: 09-08-2022 Telephone encounter David Caputo [facility] Start: 09-05-2022 End: 09-06-2022 ambulatory DAVID CAPUTO Facility:[facility] Start: 09-05-2022 End: 09-05-2022 Nursing evaluation of patient and report Lamont Gomez Zelalem Hailey Work Phone: Hematology/Oncology Comment on above: Macrocytosis (Primar y Dx); Abnormal weight loss; Adenocarcinoma (HCC); Cancer of ampulla of Vater (HCC) Start: 08-19-2022 Refill Zahra ibrahim MD Work Phone: Hematology/Oncology Comment on above: Refill Request Start: 08-11-2022 End: 08-11-2022 ambulatory David Caputo Other [employer] Other Start: 08-11-2022 Telephone encounter David Caputo [facility] Start: 08-08-2022 End: 08-09-2022 ambulatory DAVID CAPUTO Facility:[facility] Start: 08-08-2022 End: 08-08-2022 Office outpatient visit [...] 07-24-2022 End: 07-24-2022 ambulatory David Caputo Other [employer] Other Start: 07-24-2022 Telephone encounter David Caputo [facility] Start: 07-17-2022 End: 07-17-2022 ambulatory David Caputo Other [employer] Other Start: 07-17-2022 Office outpatient vi sit 25 minutes [facility] System Start: 07-11-2022 End: 07-12-[address] CORY [...] 06-13-2022 Rx Renewal David Caputo Work Phone: [facility] DO Work Phone: Start: 06-06-2022 End: 06-06-2022 ambulatory DAVID CAPUTO Facility:[facility] Start: 06-06-2022 End: 06-06-2022 Nursing evaluation of patient and report Ma [...] 05-13-2022 Adult health examination David Caputo Other [employer] Other Start: 05-12-2022 End: 05-13-[address] DAVID CAPUTO Facility: Start: 05-08-2022 End: 05-08-2022 Nursing evaluation of patient and report Ma Nurse Zelalem Hailey Work Phone: Hematology/Oncology Comment on above: Macrocytosis [...] Lab Orders Start: 03-27-2022 Refill Imelda walker [facility] Work Phone: Hematology/Oncology Comment on above: [...] 03-10-2022 Rx Renewal David Caputo Work Phone: [facility] [facility] DO Work Phone: Start: 03-06-2022 Rx Renewal David E Caputo Work Phone: [facility] DO Work Phone: Start: 02-28-2022 Social Work Mackenzie AVILES Hematolo gy/Oncology Start: 02-17-2022 Telephone encounter Cassandra Cunningham Hematology/Oncology Comment on above: Refill Request Start: [...] 01-16-2022 End: 01-16-2022 ambulatory Nate Hanson Other [employer] Other Start: 01-16-2022 Office outpatient vi sit 25 minutes Nate Hanson [facility] Gastroenterology Start: 01-09-[address] Irving Abreu [...] Hematology/Oncology Start: 11-26-2021 End: 11-27-[address] DAVDI CAPUTO Facility:[facility] Start: 11-12-2021 End: 11-13-[address] DAVID CAPUTO Facility:[facility] Start: 10-10-2021 End: 10-11-[address] DAVID CAPUTO Facility:[facility] Start: 07-02-2021 Rx Renewal Irving cunningham DO Work Phone: [facility] DO Work Phone: Start: 09-30-2017 End: 10-09-2017 Evaluation and management of inpatient MICHAEL CEDILLO) [facility] Start: 09-28-2017 Ambulatory MAU DUFFY Facility: [id number] Start: 09-24-2017 Ambulatory MICHAEL CEDILLO) [facility] Start: 08-14-2017 End: 09-01-2017 Evaluation and management of inpatient MICHAEL CEDILLO) [facility] Procedures Date Procedure Procedure Detail Performing Clinician Start: 10-10-[address] DAVID CAPUTO Comment on above: Performed By: #### [facility]ASC #### [facility] [address] [place] [address] Dr. Mel Barrientos Start: 01-26-2020 Total colonoscopy [...] SCRE ENING DISCUSSION PROSTATE CANCER SCREENING DISCUSSION [facility] Start: 03-11-2026 Diabetes Screening Diabetes Screenin g [facility] Start: 02-19-2026 DIABETES SCREEN DIABETES SCREEN [facility] Start: 11-28-2025 DIABETES SCREEN DIABETES SCREEN [facility] Start: 10-03-2025 DIABETES SCREEN DIABETES SCREEN [facility] Start: 08-08-2025 DIABETES SCREEN DIABETES SCREEN [facility] Start: 07-03-2025 DIABETES SCREEN DIABETES SCREEN [facility] Start: 06-06-2025 DIABETES SCREEN DIABETES SCREEN [facility] Start: 05-08-2025 DIABETES SCREEN DIABETES SCREEN [facility] Start: 04-03-2025 DIABETES SCREEN DIABETES SCREEN [facility] Start: 03-06-2025 DIABETES SCREEN DIABETES SCREEN [facility] Start: 02-06-2025 DIABETES SCREEN DIABETES SCREEN [facility] Start: 09-17-2023 FUV, Provider: Irving Abreu, Status: Pen, Time: 10:50 AM FUV, Provider: Irving Abreu, Status: Cosme, Time: 10:50 AM -[facility] [facility] DO Work Phone: Start: 06-29-2023 End: 08-29-2023 Cancer Ag 19-9 [Units/volume] in Serum or Plasma CA 19-9 BLD Lab Routine Cancer of ampulla of Vater (HCC) Anemia due to vitamin B12 deficiency, unspecified B12 deficiency type Severe protein-calorie malnutrition (HCC) Expected: 06/29/2023 (Approximate), Expires: 08/29/2023 [facility] Work Phone: Comment on above: Expected: 06/29/2023 (Approximate), Expires: 08/29/2023 Start: 06-29-2023 End: 03-16-2024 CBC W Auto Differential panel - Blood CBC + DIFF Lab Routine Cancer of ampulla of Vater (HCC) Anemia due to vitamin B12 deficiency, unspecified B12 deficiency type Severe protein-calorie malnutrition (HCC) Expected: 06/29/2023 (Approximate), Expires: 03/16/2024 [facility] Work Phone: Comment on above: Expected: 06/29/2023 (Approximate), Expires: 03/16/2024 Start: 06-29-2023 End: 03-16-2024 Cobalamin (Vitamin B12) [Mass/volume] in Serum or Plasma VITAMIN B12 BLOOD Lab Routine Cancer of ampulla of Vater (HCC) Anemia due to vitamin B12 deficiency, unspecified B12 deficiency type Severe protein-calorie malnutrition (HCC) Expected: 06/29/2023 (Approximate), Expires: 03/16/2024 [facility] Work Phone: Comment on above: Expected: 06/29/2023 (Approximate), Expires: 03/16/2024 Start: 06-29-2023 End: 03-16-2024 Comprehensive metabolic 2000 panel - Serum or Plasma COMP METABOLIC PANEL Lab Routine Cancer of ampulla of Vater (HCC) Anemia due to vitamin B12 deficiency, unspecified B12 deficiency type Severe protein-calorie malnutrition (HCC) Expected: 06/29/2023 (Approximate), Expires: 03/16/2024 [facility] Work Phone: Comment on above: Expected: 06/29/2023 (Approximate), Expires: 03/16/2024 Start: 06-29-2023 End: 04-14-2024 Ct abdomen & pelvis w/contrast material CT ABD/PEL W IVCON Radiology Routine Cancer of ampulla of Vater (HCC) Anemia due to vitamin B12 deficiency, unspecified B12 deficiency type Severe protein-calorie malnutrition (HCC) Expected: 06/29/2023 (Approximate), Expires: 04/14/2024 [facility] Work Phone: Comment on above: Expected: 06/29/2023 (Approximate), Expires: 04/14/2024 Start: 06-29-2023 End: 04-14-2024 CT CHEST W IVCON CT CHEST W IVCON Radiology Routine Cancer of ampulla of Vater (HCC) Anemia due to vitamin B12 deficiency, unspecified B12 deficiency type Severe protein-calorie malnutrition (HCC) Expected: 06/29/2023 (Approximate), Expires: 04/14/2024 [facility] Work Phone: Comment on above: Expected: 06/29/2023 (Approximate), Expires: 04/14/2024 Start: 06-29-2023 End: 03-16-2024 Ferritin [Mass/volume] in Serum or Plasma FERRITIN BLD Lab Routine Cancer of ampulla of Vater (HCC) Anemia due to vitamin B12 deficiency, unspecified B12 deficiency type Severe protein-calorie malnutrition (HCC) Expected: 06/29/2023 (Approximate), Expires: 03/16/2024 [facility] Work Phone: Comment on above: Expected: 06/29/2023 (Approximate), Expires: 03/16/2024 Start: 06-29-2023 End: 03-16-2024 Folate [Mass/volume] in Serum or Plasma FOLATE SERUM Lab Routine Cancer of ampulla of Vater (HCC) Anemia due to vitamin B12 deficiency, unspecified B12 deficiency type Severe protein-calorie malnutrition (HCC) Expected: 06/29/2023 (Approximate), Expires: 03/16/2024 [facility] Work Phone: Comment on above: Expected: 06/29/2023 (Approximate), Expires: 03/16/2024 Start: 06-29-2023 End: 03-16-2024 Iron and Iron binding capacity panel - Serum or Plasma IRON + TIBC Lab Routine Cancer of ampulla of Vater (HCC) Anemia due to vitamin B12 deficiency, unspecified B12 deficiency type Severe protein-calorie malnutrition (HCC) Expected: 06/29/2023 (Approximate), Expires: 03/16/2024 [facility] Work Phone: Comment on above: Expected: 06/29/2023 (Approximate), Expires: 03/16/2024 Start: 03-11-2023 End: 05-11-2023 Cancer Ag 19-9 [Units/volume] in Serum or Plasma CA 19-9 BLD Lab Routine Cancer of ampulla of Vater (HCC) Expected: 03/11/2023 (Approximate), Expires: 05/11/2023 [facility] Work Phone: Comment on above: Expected: 03/11/2023 (Approximate), Expires: 05/11/2023 Start: 03-11-2023 End: 03-05-2024 CBC W Auto Differential panel - Blood CBC + DIFF Lab Routine Cancer of ampulla of Vater (HCC) Expected: 03/11/2023 (Approximate), Expires: 03/05/2024 [facility] Work Phone: Comment on above: Expected: 03/11/2023 (Approximate), Expires: 03/05/2024 Start: 03-11-2023 End: 03-05-2024 Cobalamin (Vitamin B12) [Mass/volume] in Serum or Plasma VITAMIN B12 BLOOD Lab Routine Cancer of ampulla of Vater (HCC) Expected: 03/11/2023 (Approximate), Expires: 03/05/2024 [facility] Work Phone: Comment on above: Expected: 03/11/2023 (Approximate), Expires: 03/05/2024 Start: 03-11-2023 End: 03-05-2024 Comprehensive metabolic 2000 panel - Serum or Plasma COMP METABOLIC PANEL Lab Routine Cancer of ampulla of Vater (HCC) Expected: 03/11/2023 (Approximate), Expires: 03/05/2024 [facility] Work Phone: Comment on above: Expected: 03/11/2023 (Approximate), Expires: 03/05/2024 Start: 03-11-2023 End: 03-05-2024 Ferritin [Mass/volume] in Serum or Plasma FERRITIN BLD Lab Routine Cancer of ampulla of Vater (HCC) Expected: 03/11/2023 (Approximate), Expires: 03/05/2024 [facility] Work Phone: Comment on above: Expected: 03/11/2023 (Approximate), Expires: 03/05/2024 Start: 03-11-2023 End: 03-05-2024 Folate [Mass/volume] in Serum or Plasma FOLATE SERUM Lab Routine Cancer of ampulla of Vater (HCC) Expected: 03/11/2023 (Approximate), Expires: 03/05/2024 [facility] Work Phone: Comment on above: Expected: 03/11/2023 (Approximate), Expires: 03/05/2024 Start: 03-11-2023 End: 03-05-2024 Iron and Iron binding capacity panel - Serum or Plasma IRON + TIBC Lab Routine Cancer of ampulla of Vater (HCC) Expected: 03/11/2023 (Approximate), Expires: 03/05/2024 [facility] Work Phone: Comment on above: Expected: 03/11/2023 (Approximate), Expires: 03/05/2024 Start: 03-05-2023 End: 03-20-[address] attenuation skull base mid-thigh NM PET/CT SKULL-THIGH INITIAL Radiology Routine Cancer of ampulla of Vater (HCC) Expected: 03/05/2023 (Approximate), Expires: 03/20/2024 [facility] Work Phone: Comment on above: Expected: 03/05/2023 (Approximate), Expires: 03/20/2024 Start: 02-27-2023 Covid-19 Vaccine () Covid-19 Vaccine () [facility] Start: 02-27-2023 Influenza vaccination C [facility] Start: 02-19-2023 End: 02-18-2024 CBC W Auto Differential panel - Blood CBC + DIFF Lab Routine Anemia due to vitamin B12 deficiency, unspecified B12 deficiency type Expected: 02/19/2023 (Approximate), Expires: 02/18/2024 [facility] Work Phone: Comment on above: Expected: 02/19/2023 (Approximate), Expires: 02/18/2024 Start: 02-19-2023 End: 02-18-2024 Cobalamin (Vitamin B12) [Mass/volume] in Serum or Plasma VITAMIN B12 BLOOD Lab Routine Anemia due to vitamin B12 deficiency, unspecified B12 deficiency type Expected: 02/19/2023 (Approximate), Expires: 02/18/2024 [facility] Work Phone: Comment on above: Expected: 02/19/2023 (Approximate), Expires: 02/18/2024 Start: 02-19-2023 End: 02-18-2024 Comprehensive metabolic 2000 panel - Serum or Plasma COMP METABOLIC PANEL Lab Routine Anemia due to vitamin B12 deficiency, unspecified B12 deficiency type Expected: 02/19/2023 (Approximate), Expires: 02/18/2024 [facility] Work Phone: Comment on above: Expected: 02/19/2023 (Approximate), Expires: 02/18/2024 Start: 02-19-2023 End: 02-18-2024 Ferritin [Mass/volume] in Serum or Plasma FERRITIN BLD Lab Routine Anemia due to vitamin B12 deficiency, unspecified B12 deficiency type Expected: 02/19/2023 (Approximate), Expires: 02/18/2024 [facility] Work Phone: Comment on above: Expected: 02/19/2023 (Approximate), Expires: 02/18/2024 Start: 02-19-2023 End: 02-18-2024 Folate [Mass/volume] in Serum or Plasma FOLATE SERUM Lab Routine Anemia due to vitamin B12 deficiency, unspecified B12 deficiency type Expected: 02/19/2023 (Approximate), Expires: 02/18/2024 [facility] Work Phone: Comment on above: Expected: 02/19/2023 (Approximate), Expires: 02/18/2024 Start: 02-19-2023 End: 02-18-2024 Iron and Iron binding capacity panel - Serum or Plasma IRON + TIBC Lab Routine Anemia due to vitamin B12 deficiency, unspecified B12 deficiency type Expected: 02/19/2023 (Approximate), Expires: 02/18/2024 [facility] Work Phone: Comment on above: Expected: 02/19/2023 (Approximate), Expires: 02/18/2024 Start: 01-27-2023 Insulin C-peptide measurement [facility] Start: 01-07-2023 FUV, Provider: Irving Abreu, Status: Cosme, Time: 10:20 AM FUV, Provider: Irving Abreu, Status: Cosme, Time: 10:20 AM -[place] [id number] DO Work Phone: Start: 08-14-2022 Pneumococcal Vaccine : 65+ (3 - PPSV23 or PCV20) Pneumococcal Vaccine: 65+ (3 - PPSV23 or PCV20) [facility] Start: 08-14-2022 PNEUMOCOCCAL: 65+ (#3) PNEUMOCOCCAL: 65+ (#3) [facility] Start: 08-14-2022 PNEUMOCOCCAL: 65+ (3 - PPSV23 if available, else PCV20) PNEUMOCOCCAL: 65+ (3 - PPSV23 if available, else PCV20) [facility] Start: 08-14-2022 PNEUMOCOCCAL: 65+ (3 - PPSV23 or PCV20) PNEUMOCOCCAL: 65+ (3 - PPSV23 or PCV20) [facility] Start: 07-04-2022 End: 09-03-2022 Cancer Ag 19-9 [Units/volume] in Serum or Plasma CA 19-9 BLD Lab Routine Cancer of ampulla of Vater (HCC) Expected: 07/04/2022 (Approximate), Expires: 09/03/2022 [facility] Work Phone: Comment on above: Expected: 07/04/2022 (Approximate), Expires: 09/03/2022 Start: 07-04-2022 End: 06-06-2023 CBC W Auto Differential panel - Blood CBC + DIFF Lab Routine Anemia due to vitamin B12 deficiency, unspecified B12 deficiency type Expected: 07/04/2022 (Approximate), Expires: 06/06/2023 [facility] Work Phone: Comment on above: Expected: 07/04/2022 (Approximate), Expires: 06/06/2023 Start: 07-04-2022 End: 06-06-2023 Cobalamin (Vitamin B12) [Mass/volume] in Serum or Plasma VITAMIN B12 BLOOD Lab Routine Anemia due to vitamin B12 deficiency, unspecified B12 deficiency type Expected: 07/04/2022 (Approximate), Expires: 06/06/2023 [facility] Work Phone: Comment on above: Expected: 07/04/2022 (Approximate), Expires: 06/06/2023 Start: 07-04-2022 End: 06-06-2023 Comprehensive metabolic 2000 panel - Serum or Plasma COMP METABOLIC PANEL Lab Routine Anemia due to vitamin B12 deficiency, unspecified B12 deficiency type Expected: 07/04/2022 (Approximate), Expires: 06/06/2023 [facility] Work Phone: Comment on above: Expected: 07/04/2022 (Approximate), Expires: 06/06/2023 Start: 07-04-2022 End: 07-06-2023 Ct abdomen & pelvis w/contrast material CT ABD/PEL W IVCON Radiology Routine Interstitial pulmonary disease (HCC) Cancer of ampulla of Vater (HCC) Anemia due to vitamin B12 deficiency, unspecified B12 deficiency type Expected: 07/04/2022 (Approximate), Expires: 07/06/2023 [facility] Work Phone: Comment on above: Expected: 07/04/2022 (Approximate), Expires: 07/06/2023 Start: 07-04-2022 End: 07-06-2023 CT CHEST W IVCON CT CHEST W IVCON Radiology Routine Interstitial pulmonary disease (HCC) Cancer of ampulla of Vater (HCC) Anemia due to vitamin B12 deficiency, unspecified B12 deficiency type Expected: 07/04/2022 (Approximate), Expires: 07/06/2023 [facility] Work Phone: Comment on above: Expected: 07/04/2022 (Approximate), Expires: 07/06/2023 Start: 07-04-2022 DIABETES SCREEN DIABETES SCREEN [facility] Start: 07-04-2022 End: 06-06-2023 Ferritin [Mass/volume] in Serum or Plasma FERRITIN BLD Lab Routine Anemia due to vitamin B12 deficiency, unspecified B12 deficiency type Expected: 07/04/2022 (Approximate), Expires: 06/06/2023 [facility] Work Phone: Comment on above: Expected: 07/04/2022 (Approximate), Expires: 06/06/2023 Start: 07-04-2022 End: 06-06-2023 Folate [Mass/volume] in Serum or Plasma FOLATE SERUM Lab Routine Anemia due to vitamin B12 deficiency, unspecified B12 deficiency type Expected: 07/04/2022 (Approximate), Expires: 06/06/2023 [facility] Work Phone: Comment on above: Expected: 07/04/2022 (Approximate), Expires: 06/06/2023 Start: 07-04-2022 End: 06-06-2023 Iron and Iron binding capacity panel - Serum or Plasma IRON + TIBC Lab Routine Anemia due to vitamin B12 deficiency, unspecified B12 deficiency type Expected: 07/04/2022 (Approximate), Expires: 06/06/2023 [facility] Work Phone: Comment on above: Expected: 07/04/2022 (Approximate), Expires: 06/06/2023 Start: 06-29-2022 ADVANCE DIRECTIVE DISCUSSION ADVANCE DIRECTIVE DISCUSSION [facility] Start: 06-29-2022 DEPRESSION ASSESSMENT DEPRESSION ASS ESSMENT [facility] Start: 2022 ADVANCE DIRECTIVE DISCUSSION ADVANCE DIRECTIVE DISCUSSION [facility] Start: 05-08-2022 End: 04-10-2023 CBC W Auto Differential panel - Blood CBC + DIFF Lab Routine Iron deficiency anemia, unspecified iron deficiency anemia type Anemia due to vitamin B12 deficiency, unspecified B12 deficiency type Expected: 05/08/2022 (Approximate), Expires: 04/10/2023 [facility] Work Phone: Comment on above: Expected: 05/08/2022 (Approximate), Expires: 04/10/2023 Start: 05-08-2022 End: 04-10-2023 Cobalamin (Vitamin B12) [Mass/volume] in Serum or Plasma VITAMIN B12 BLOOD Lab Routine Iron deficiency anemia, unspecified iron deficiency anemia type Anemia due to vitamin B12 deficiency, unspecified B12 deficiency type Expected: 05/08/2022 (Approximate), Expires: 04/10/2023 [facility] Work Phone: Comment on above: Expected: 05/08/2022 (Approximate), Expires: 04/10/2023 Start: 05-08-2022 End: 04-10-2023 Comprehensive metabolic 2000 panel - Serum or Plasma COMP METABOLIC PANEL Lab Routine Iron deficiency anemia, unspecified iron deficiency anemia type Anemia due to vitamin B12 deficiency, unspecified B12 deficiency type Expected: 05/08/2022 (Approximate), Expires: 04/10/2023 [facility] Work Phone: Comment on above: Expected: 05/08/2022 (Approximate), Expires: 04/10/2023 Start: 05-08-2022 End: 04-10-2023 Ferritin [Mass/volume] in Serum or Plasma FERRITIN BLD Lab Routine Iron deficiency anemia, unspecified iron deficiency anemia type Anemia due to vitamin B12 deficiency, unspecified B12 deficiency type Expected: 05/08/2022 (Approximate), Expires: 04/10/2023 [facility] Work Phone: Comment on above: Expected: 05/08/2022 (Approximate), Expires: 04/10/2023 Start: 05-08-2022 End: 04-10-2023 Folate [Mass/volume] in Serum or Plasma FOLATE SERUM Lab Routine Iron deficiency anemia, unspecified iron deficiency anemia type Anemia due to vitamin B12 deficiency, unspecified B12 deficiency type Expected: 05/08/2022 (Approximate), Expires: 04/10/2023 [facility] Work Phone: Comment on above: Expected: 05/08/2022 (Approximate), Expires: 04/10/2023 Start: 05-08-2022 End: 04-10-2023 Iron and Iron binding capacity panel - Serum or Plasma IRON + TIBC Lab Routine Iron deficiency anemia, unspecified iron deficiency anemia type Anemia due to vitamin B12 deficiency, unspecified B12 deficiency type Expected: 05/08/2022 (Approximate), Expires: 04/10/2023 [facility] Work Phone: Comment on above: Expected: 05/08/2022 (Approximate), Expires: 04/10/2023 Start: 04-10-2022 End: 04-10-2023 CBC W Auto Differential panel - Blood CBC + DIFF Lab Routine Iron deficiency anemia, unspecified iron deficiency anemia type Anemia due to vitamin B12 deficiency, unspecified B12 deficiency type Macrocytosis Expected: 04/10/2022, Expires: 04/10/2023 [facility] Work Phone: Comment on above: Expected: 04/10/2022 , Expires: 04/10/2023 Start: 04-10-2022 End: 04-10-2023 Cobalamin (Vitamin B12) [Mass/volume] in Serum or Plasma VITAMIN B12 BLOOD Lab Routine Iron deficiency anemia, unspecified iron deficiency anemia type Anemia due to vitamin B12 deficiency, unspecified B12 deficiency type Macrocytosis Expected: 04/10/2022, Expires: 04/10/2023 [facility] Work Phone: Comment on above: Expected: 04/10/2022 , Expires: 04/10/2023 Start: 04-10-2022 End: 04-10-2023 Comprehensive metabolic 2000 panel - Serum or Plasma COMP METABOLIC PANEL Lab Routine Iron deficiency anemia, unspecified iron deficiency anemia type Anemia due to vitamin B12 deficiency, unspecified B12 deficiency type Macrocytosis Expected: 04/10/2022, Expires: 04/10/2023 [facility] Work Phone: Comment on above: Expected: 04/10/2022 , Expires: 04/10/2023 Start: 04-10-2022 End: 04-10-2023 Ferritin [Mass/volume] in Serum or Plasma FERRITIN BLD Lab Routine Iron deficiency anemia, unspecified iron deficiency anemia type Anemia due to vitamin B12 deficiency, unspecified B12 deficiency type Macrocytosis Expected: 04/10/2022, Expires: 04/10/2023 [facility] Work Phone: Comment on above: Expected: 04/10/2022 , Expires: 04/10/2023 Start: 04-10-2022 End: 04-10-2023 Folate [Mass/volume] in Serum or Plasma FOLATE SERUM Lab Routine Iron deficiency anemia, unspecified iron deficiency anemia type Anemia due to vitamin B12 deficiency, unspecified B12 deficiency type Macrocytosis Expected: 04/10/2022, Expires: 04/10/2023 [facility] Work Phone: Comment on above: Expected: 04/10/2022 , Expires: 04/10/2023 Start: 04-10-2022 End: 06-10-2022 Haptoglobin [Mass/volume] in Serum or Plasma HAPTOGLOBIN BLD Lab Routine Iron deficiency anemia, unspecified iron deficiency anemia type Anemia due to vitamin B12 deficiency, unspecified B12 deficiency type Macrocytosis Expected: 04/10/2022, Expires: 06/10/2022 [facility] Work Phone: Comment on above: Expected: 04/10/2022 , Expires: 06/10/2022 Start: 04-10-2022 End: 04-10-2023 Iron and Iron binding capacity panel - Serum or Plasma IRON + TIBC Lab Routine Iron deficiency anemia, unspecified iron deficiency anemia type Anemia due to vitamin B12 deficiency, unspecified B12 deficiency type Macrocytosis Expected: 04/10/2022, Expires: 04/10/2023 [facility] Work Phone: Comment on above: Expected: 04/10/2022 , Expires: 04/10/2023 Start: 04-10-2022 End: 06-10-2022 Lactate dehydrogenase [Enzymatic activity/volume] in Serum or Plasma LD LACTATE DEHYDRO Lab Routine Iron deficiency anemia, unspecified iron deficiency anemia type Anemia due to vitamin B12 deficiency, unspecified B12 deficiency type Macrocytosis Expected: 04/10/2022, Expires: 06/10/2022 [facility] Work Phone: Comment on above: Expected: 04/10/2022 , Expires: 06/10/2022 Start: 04-10-2022 End: 06-10-2022 RETIC COUNT RETIC COUNT Lab Routine Iron deficiency anemia, unspecified iron deficiency anemia type Anemia due to vitamin B12 deficiency, unspecified B12 deficiency type Macrocytosis Expected: 04/10/2022, Expires: 06/10/2022 [facility] Work Phone: Comment on above: Expected: 04/10/2022 , Expires: 06/10/2022 Start: 02-27-2022 Influenza vaccination C [facility] Start: 02-04-2022 End: 04-06-2022 Cancer Ag 19-9 [Units/volume] in Serum or Plasma CA 19-9 BLD Lab Routine Iron deficiency anemia, unspecified iron deficiency anemia type 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) Expected: 02/04/2022 (Approximate), Expires: 04/06/2022 [facility] Work Phone: Comment on above: Expected: 02/04/2022 (Approximate), Expires: 04/06/2022 Start: 02-04-2022 End: 12-05-2022 Carcinoembryonic Ag [Mass/volume] in Serum or Plasma CEA BLD Lab Routine Iron deficiency anemia, unspecified iron deficiency anemia type 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) Malignant neoplasm of body of pancreas (HCC) Expected: 02/04/2022 (Approximate), Expires: 12/05/2022 [facility] Work Phone: Comment on above: Expected: 02/04/2022 (Approximate), Expires: 12/05/2022 Start: 02-04-2022 End: 12-05-2022 CBC W Auto Differential panel - Blood CBC + DIFF Lab Routine Iron deficiency anemia, unspecified iron deficiency anemia type 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) Expected: 02/04/2022 (Approximate), Expires: 12/05/2022 [facility] Work Phone: Comment on above: Expected: 02/04/2022 (Approximate), Expires: 12/05/2022 Start: 02-04-2022 End: 12-05-2022 Comprehensive metabolic 2000 panel - Serum or Plasma COMP METABOLIC PANEL Lab Routine Iron deficiency anemia, unspecified iron deficiency anemia type 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) Expected: 02/04/2022 (Approximate), Expires: 12/05/2022 [facility] Work Phone: Comment on above: Expected: 02/04/2022 (Approximate), Expires: 12/05/2022 Start: 02-04-2022 End: 01-04-2023 Ct abdomen & pelvis w/contrast material CT ABD/PEL W IVCON Radiology Routine Iron deficiency anemia, unspecified iron deficiency anemia type 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) Expected: 02/04/2022 (Approximate), Expires: 01/04/2023 [facility] Work Phone: Comment on above: Expected: 02/04/2022 (Approximate), Expires: 01/04/2023 Start: 02-04-2022 End: 01-04-2023 Ct thorax w/contrast material CT CHEST W IVCON Radiology Routine Iron deficiency anemia, unspecified iron deficiency anemia type 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) Expected: 02/04/2022 (Approximate), Expires: 01/04/2023 [facility] Work Phone: Comment on above: Expected: 02/04/2022 (Approximate), Expires: 01/04/2023 Start: 01-09-2022 FUV, Provider: Irving Abreu, Status: Cosme, Time: 11:15 AM FUV, Provider: Irving Abreu, Status: Cosme, Time: 11:15 AM [facility] Sa[facility] DO Work Phone: Start: 11-14-2021 COVID-19 VACCINE (4 - Booster for Pfizer series) COVID-19 VACCINE (4 - Booster for Pfizer series) [facility] Start: 09-11-2021 COVID-19 VACCINE (4 - Booster for Pfizer series) COVID-19 VACCINE (4 - Booster for Pfizer series) [facility] Start: 09-11-2021 COVID-19 VACCINE (4 - Pfizer series) COVID-19 VACCINE (4 - Pfizer series) [facility] Start: 06-29-2021 DEPRESSION ASSESSMENT DEPRESSION ASS ESSMENT [facility] Start: 12-11-2020 Adult depression scr eening assessment DEPRESSION SCREENING [facility] Start: 08-14-2018 PNEUMOCOCCAL (2 - PCV) PNEUMOCOCCAL (2 - PCV) [facility] Start: 2012 PROSTATE CANCER SCRE ENING DISCUSSION PROSTATE CANCER SCREENING DISCUSSION [facility] Start: 2007 SHINGRIX VACCINE (1 of 2) URBINA GRIX VACCINE (1 of 2) [facility] Start: 2002 COLOGUARD (FIT-DNA) COLOGUARD (FIT-D NA) [facility] Start: 2002 Colonoscopy COLONOSCOPY [facility] Start: 2002 COLORECTAL CANCER SCREENING COLORECTAL CANCER SCREENING [facility] Start: [address] COLONOGRAPHY [facility] Start: 2002 FECAL OCCULT BLOOD FECAL OCCULT BLOO D [facility] Start: 2002 SIGMOIDOSCOPY SIGMOIDOSCOPY [facility] Start: 1992 Lipid 1996 panel - S brandi or Plasma Lipid Screening [facility] Start: 1992 LIPID SCREEN LIPID SCREEN [facility] Start: 1976 SHINGRIX VACCINE (1 of 2) URBINA GRIX VACCINE (1 of 2) [facility] Start: 1976 Urine microalbumin profile [facility] Start: 1975 HIV SCREENING HIV SCREENING [facility] Start: 1962 COVID-19 VACCINE (#1) COVID-19 VACCI NE (#1) [facility] Start: 1957 ABDOMINAL AORTIC ANE URYSM SCREENING ABDOMINAL AORTIC ANEURYSM SCREENING [facility] End: 03-10-2024 Cancer Ag 19-9 [Units/volume] in Serum or Plasma CA 19-9 BLD Lab Routine Cancer of ampulla of Vater (HCC) Anemia due to vitamin B12 deficiency, unspecified B12 deficiency type Iron deficiency anemia, unspecified iron deficiency anemia type Every 3 weeks for 18 Occurrences starting 03/11/2023 until 03/10/2024 [facility] Work Phone: Comment on above: Every 3 weeks for 18 Occurrences starting 03/11/2023 until 03/10/2024 End: 02-13-2023 CBC W Auto Differential panel - Blood CBC + DIFF Lab Routine Iron deficiency anemia, unspecified iron deficiency anemia type Macrocytosis Every other week for 20 Occurrences starting 02/13/2022 until 02/13/2023 [facility] Work Phone: Comment on above: Every other week for 20 Occurrences starting 02/13/2022 until 02/13/2023 End: 03-10-2024 CBC W Auto Differential panel - Blood CBC + DIFF Lab Routine Cancer of ampulla of Vater (HCC) Anemia due to vitamin B12 deficiency, unspecified B12 deficiency type Iron deficiency anemia, unspecified iron deficiency anemia type Every 3 weeks for 18 Occurrences starting 03/11/2023 until 03/10/2024 [facility] Work Phone: Comment on above: Every 3 weeks for 18 Occurrences starting 03/11/2023 until 03/10/2024 End: 02-13-2023 Cobalamin (Vitamin B12) [Mass/volume] in Serum or Plasma VITAMIN B12 BLOOD Lab Routine Iron deficiency anemia, unspecified iron deficiency anemia type Macrocytosis Every other week for 20 Occurrences starting 02/13/2022 until 02/13/2023 [facility] Work Phone: Comment on above: Every other [...] for 18 Occurrences starting 03/11/2023 until 03/10/2024 [facility] Work Phone: Comment on above: Every 3 weeks for 18 Occurrences starting 03/11/2023 until 03/10/2024 End: 02-13-2023 Comprehensive metabolic 2000 panel - Serum or Plasma COMP METABOLIC PANEL Lab Routine Iron deficiency anemia, unspecified iron deficiency anemia type Macrocytosis Every other week for 20 Occurrences starting 02/13/2022 until 02/13/2023 [facility] Work Phone: Comment on above: Every other [...] for 18 Occurrences starting 03/11/2023 until 03/10/2024 [facility] Work Phone: Comment on above: Every 3 [...] for 20 Occurrences starting 02/13/2022 until 02/13/2023 [facility] Work Phone: Comment on above: Every other week for 20 Occurrences starting 02/13/2022 until 02/13/2023 End: 09-12-2024 Ferritin [Mass/volume] in Serum or Plasma FERRITIN BLD Lab Routine Cancer of ampulla of Vater (HCC) Anemia due to vitamin B12 deficiency, unspecified B12 deficiency type Iron deficiency anemia, unspecified iron deficiency anemia type Every 3 weeks for 18 Occurrences starting 03/11/2023 until 03/10/2024 [facility] Work Phone: Comment on above: Every 3 weeks for 18 Occurrences starting 03/11/2023 until 03/10/2024 End: 02-13-2023 Folate [Mass/volume] in Serum or Plasma FOLATE SERUM Lab Routine Iron deficiency anemia, unspecified iron deficiency anemia type Macrocytosis Every other week for 20 Occurrences starting 02/13/2022 until 02/13/2023 [facility] Work Phone: Comment on above: Every other week for 20 Occurrences starting 02/13/2022 until 02/13/2023 End: 03-10-2024 Folate [Mass/volume] in Serum or Plasma FOLATE SERUM Lab Routine Cancer of ampulla of Vater (HCC) Anemia due to vitamin B12 deficiency, unspecified B12 deficiency type Iron deficiency anemia, unspecified iron deficiency anemia type Every 3 weeks for 18 Occurrences starting 03/11/2023 until 03/10/2024 [facility] Work Phone: Comment on above: Every 3 weeks for 18 Occurrences starting 03/11/2023 until 03/10/2024 End: 02-13-2023 Iron and Iron binding capacity panel - Serum or Plasma IRON + TIBC Lab Routine Iron deficiency anemia, unspecified iron deficiency anemia type Macrocytosis Every other week for 20 Occurrences starting 02/13/2022 until 02/13/2023 [facility] Work Phone: Comment on above: Every other [...] for 18 Occurrences starting 03/11/2023 until 03/10/2024 [facility] Work Phone: Comment on above: Every 3 weeks for 18 Occurrences starting 03/11/2023 until 03/10/2024 [facility] Immunizations Immunization Date Immunization Notes Care Provider Srinivas [facility] 06-04-2023 influenza, high dose seasonal, preservative-free David Caputo Other [employer] [facility] [employer] Other 04-01-2022 Seasonal trivalent influenza vaccine, adjuvanted, preservative free Chair Phelan Work Phone: [facility] 04-01-2022 influenza virus vaccine, unspecified formulation Zahra Buitrago MD Work Phone: [facility] 07-17-2021 COVID-19 vaccine, ag e 12+ yr (PFIZER-BIONTECH - [place] TOP) Zahra Buitrago MD Work Phone: [facility] 04-04-2021 AS03 adjuvant Chair Phelan Work Phone: [facility] 04-04-2021 influenza virus vaccine, split virus (incl. purified surface antigen) David Caputo Other [employer] Other 04-04-2021 Seasonal trivalent influenza vaccine, adjuvanted, preservative free Zahra Buitrago MD Work Phone: [facility] 10-24-2020 COVID-19 vaccine, ag e 12+ yr (PFIZER-BIONTECH - PURPLE TOP) Zahra Buitrago MD Work Phone: [facility] 10-03-2020 COVID-19 vaccine, ag e 12+ yr (PFIZER-BIONTECH - PURPLE TOP) Zahra Buitrago MD Work Phone: [facility] 03-29-2020 influenza nasal, unspecified formulation Chair Phelan Work Phone: [facility] 03-29-2020 influenza virus vaccine, unspecified formulation David Caputo Work Phone: [facility] 250 DO Work Phone: 03-29-2020 influenza, seasonal, injectable Zahra Buitrago MD Work Phone: [facility] 03-22-2020 influenza virus vaccine, split virus (incl. purified surface antigen) David Caputo Other [facility] [employer] Other 03-22-2020 influenza, injectabl e, quadrivalent, contains preservative Zahra Buitrago MD Work Phone: [facility] 05-02-2019 influenza, injectabl e, quadrivalent, contains preservative Zahra Buitrago MD Work Phone: [facility] 03-29-2019 influenza nasal, unspecified formulation Chair Phelan Work Phone: [facility] 03-29-2019 influenza virus vaccine, unspecified formulation David Caputo Work Phone: [place] [id number] DO Work Phone: 03-29-2019 influenza, seasonal, injectable Zahra Buitrago MD Work Phone: [facility] 03-29-2018 influenza nasal, unspecified formulation Chair Phelan Work Phone: [facility] 03-29-2018 influenza virus vaccine, unspecified formulation David Caputo Work Phone: [facility] 250 DO Work Phone: 02-14-2018 influenza, injectabl e, quadrivalent, preservative free Zahra Buitrago MD Work Phone: [facility] 09-02-2017 tuberculin skin test ; unspecified formulation Dr. Adriane Espitia [facility] 09-01-2017 influenza, high-dose seasonal, quadrivalent, 0.7mL dose, [facility] Adriane Luna [facility] 08-14-2017 pneumococcal polysaccharide vaccine, 23 vallarry Buitrago MD Work Phone: [facility] Work Phone: 04-22-2017 influenza virus vaccine, split virus (incl. purified surface antigen) David Caputo Other [employer] Other 04-13-2017 influenza, injectabl e, quadrivalent, contains preservative Zahra Buitrago MD Work Phone: [facility] 03-29-2017 influenza nasal, unspecified formulation Chair Phelan Work Phone: [facility] 03-29-2017 influenza virus vaccine, unspecified formulation David Caputo Work Phone: [facility] DO Work Phone: 03-03-2017 influenza, injectabl e, quadrivalent, preservative free Zahra Buitrago MD Work Phone: [facility] 07-30-2016 pneumococcal conjuga te vaccine, 13 valent David Caputo Work Phone: [facility] 04-29-2011 influenza nasal, unspecified formulation Chair Phelan Work Phone: [facility] 04-29-2011 influenza virus vaccine, unspecified formulation David Caputo Work Phone: [facility] [employer] 250 DO Work Phone: Payers Date Payer Category Payer Unknown [id number] 2023 Self-pay [id number] 2023 Unknown [id number] 2021 Medicaid MEDICAID [facility] MEDICAID [id number] 2021-Present [phone] [address] [place] [address] Medicaid [id number] 2021 Medicaid MEDICAID [facility] MEDICAID [id number] 2021-Present [phone] [address] [place] [address] Medicaid [id number] 2020 Medicare MEDICARE MEDICAR E A AND B [id number] 2020-Present [phone] [address] [address] [place] [address] Medicare [id number] 2020 Medicare [id number] 1959 Medicaid [id number] 1959 Medicare [id number] 1957 Unknown [id number] 593 1957 Unknown [id number]. 593 1957 Unknown [id number]. 593 1957 Unknown [id number]. 593 1957 Unknown [id number]. 593 1957 Unknown [id number] [id number]. 593 1957 Unknown [id number] 356 1957 Unknown [id number] 356 Private Health Insurance [id number] Private Health Insurance [facility] [id number] Unknown Unknown [employer] BC/BS [id number] Unknown [id number] Unknown [id number] 531 Social History Date Type Detail Facility Start: 08-13-2017 End: 02-13-2022 Tobacco smoking status NHIS Ex-smoker [facility] End: 06-29-2010 History of tobacco use Current smoker [facility] End: 06-29-2010 History of tobacco use Cigarette Smoker [facility] Start: 08-13-2017 End: 02-13-2022 Tobacco use and exposure Smokeless tobacco non-user [facility] Start: 12-03-2021 End: 03-11-2023 Alcohol intake Current drinker of alcohol (finding) [facility] Start: 12-03-2021 End: 10-31-2022 Alcohol intake [facility] Start: 08-13-2017 History SDOH Alcohol Comment occasional beer [facility] Start: 1955 Sex Assigned At Not on file C [facility] Start: 11-25-2021 End: 05-08-2022 Exposure to SARS-CoV-2 (event) Not sure [facility] Start: 10-31-2022 End: 11-28-2022 Sex Assigned At [facility] History of tobacco use Passive smoker [facility] Adult Depression Screening Assessment 0 [facility] Start: 1955 Sex Assigned At Male F [facility] Start: 01-27-2023 Unknown if ever smoked [facility] Medical Equipment Procedure Code Equipment Code [...] Medical History Fatigue Medical History CAD in [place] artery Medical History Malignant neoplasm of duodenum Surgical History heart stent 2010 Surgical History stomach ulcer 2017 Surgical History gallbladder 2018 Surgical History whipple 2018 Surgical History colonoscopy 2019 Hospitalization History SEE SURGICAL HX [employer] Other 01-16-2024 Evaluation note* Encounter Date Diagnosis Assessment Notes Treatment Notes Treatment Clinical Notes Jun, Anxiety disorder, unspecified (ICD-10 - F41.9) [employer] Other 01-02-2024 Evaluation note* Encounter Date Diagnosis Assessment Notes Treatment Notes Treatment Clinical Notes Jun, Anxiety, generalized (ICD-10 - F41.1) [employer] Other 12-18-2023 History general Narrative - Reported* Type Description Date Medical History BMI 20.0-20.9, adult Medical History Paroxysmal atrial fibrillation Medical History Lumbar pain Medical History Essential hypertension Medical History Tachypnea on examination Medical History Dyspnea on exertion Medical History Anxiety, generalized Medical History Anemia, macrocytic Medical History Elevated LFTs Medical History Fatigue Medical History CAD in [place] artery Medical History Malignant neoplasm of duodenum Surgical History heart stent 2010 Surgical History stomach ulcer 2017 Surgical History gallbladder 2018 Surgical History whipple 2018 Surgical History colonoscopy 2019 Hospitalization History SEE SURGICAL HX [employer] Other 12-07-2023 Evaluation note* Encounter Date Diagnosis [...] Pain in left hand (ICD-10 - M79.642) [employer] Other 11-24-2023 Evaluation note* Encounter Date Diagnosis Assessment Notes Treatment Notes Treatment Clinical Notes Apr, Anxiety disorder, unspecified (ICD-10 - F41.9) [employer] Other 11-21-2023 Evaluation note* Encounter Date Diagnosis Assessment Notes Treatment Notes Treatment Clinical Notes Apr, Anxiety, generalized (ICD-10 - F41.1) [employer] Other 11-08-2023 Evaluation note* Encounter Date Diagnosis Assessment Notes Treatment Notes Treatment Clinical Notes Apr, Anxiety, generalized (ICD-10 - F41.1) [employer] Other 10-19-2023 History general Narrative - Reported* Type Description Date Medical History BMI 20.0-20.9, adult Medical History Paroxysmal atrial fibrillation Medical History Lumbar pain Medical History Essential hypertension Medical History Tachypnea on examination Medical History Dyspnea on exertion Medical History Anxiety, generalized Medical History Anemia, macrocytic Medical History Elevated LFTs Medical History Fatigue Medical History CAD in [place] artery Medical History Malignant neoplasm of duodenum Surgical History heart stent 2010 Surgical History stomach ulcer 2017 Surgical History gallbladder 2018 Surgical History whipple 2018 Surgical History colonoscopy 2019 Hospitalization History SEE SURGICAL HX [employer] Other 10-12-2023 Nurse Note* Homa Powell Ma - 04/09/2023 2:56 PM EDT Patient Identification confirmed: yes. Injection given and documented on AUG per provider order. Homa Powell Ma documented in this encounterHol[facility] System10-[facility]-2023 History general Narrative - Reported* Type Description Date Medical History BMI 20.0-20.9, adult Medical History Paroxysmal atrial fibrillation Medical History Lumbar pain Medical History Essential hypertension Medical History Tachypnea on examination Medical History Dyspnea on exertion Medical History Anxiety, generalized Medical History Anemia, macrocytic Medical History Elevated LFTs Medical History Fatigue Medical History CAD in [place] artery Medical History Malignant neoplasm of duodenum Surgical History heart stent 2010 Surgical History stomach ulcer 2017 Surgical History gallbladder 2018 Surgical History whipple 2018 Surgical History colonoscopy 2019 Hospitalization History SEE SURGICAL HX [employer] Other 10-10-2023 Evaluation note* Encounter Date Diagnosis Assessment Notes Treatment Notes Treatment Clinical Notes Mar, Anxiety, generalized (ICD-10 - F41.1) [employer] Other 10-02-2023 Miscellaneous Notes* Telephone Encounter - Rola Gordon APRN.CNP - 03/30/2023 4:04 PM EDT The following approved medication requests have been transmitted electronically. Requested Prescriptions Signed Prescriptions Disp Refills folic acid 1 mg tablet 90 tablet 3 Sig: Take 1 tablet by mouth once daily. Authorizing Provider: ROLA GORDON APRN.CNP documented in this encounterHolzer [facility] System09-22-2023 Evaluation note* Encounter Date Diagnosis Assessment Notes Treatment Notes Treatment Clinical Notes Feb, Anxiety disorder, unspecified (ICD-10 - F41.9) [employer] Other 09-18-2023 Miscellaneous Notes* Telephone Encounter - [...] up based on results. documented in this encounterHolzer [facility] System09-13-[facility]* Haley Miller MA - 03/11/2023 11:21 AM EDT Patient Identification confirmed: yes. Injection given and documented on AUG per provider order. Haley Miller MA documented in this encounterHolzer Health System09-13-2023 Instructions* Patient Instructions* Zahra Buitrago MD - 03/11/2023 11:09 AM EDT B12 shot today and every 4 weeks. Patient will continue folic acid 1 mg daily as Rx'd. Triage to please call PET/CT results next week Determine follow up based on results. continue following with Dr. Caputo for DMII management. documented in this encounterHolzer Health System09-13-2023 History of Present illness Narrative* Zahra Buitrago MD - 03/11/2023 10:45 AM EDT Images from the original note were not included. NAME: Rocio Jackson CLINIC NO.: [id number] DATE OF SERVICE: March 11, 2023 (Iftikhar) [...] open wounds. CTCAP done late December in [place] concerning for possible metastatic disease. Updated Visit, [...] with his son Joaquin. Worked at a [employer]. Doing well overall is at his baseline. 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 His PFTs are pending, and he was [...] three times daily with meals.^Disp:90 tablet^Rfl: 1 [id number] (CREON 24) 24,000-76,000 -120,000 unit delayed release [...] 5 blood transfusions Coronary artery disease involving [place] coronary artery Diabetes mellitus (HCC) 2017 Duodenal cancer (HCC) Dyslipidemia Fatigue Glaucoma Hypertension Myocardial infarction (HCC) 05/15/2011 PTSD (post-traumatic stress disorder) PAST SURGICAL HISTORY Procedure Laterality Date ANGIOPLASTY HX 05/15/2011 2 stents s/p [place];[facility] CHOLECYSTECTOMY 08/11/2017 [facility] COLONOSCOPY PAST SURGICAL HISTORY OF Cardiac Stents x2 PAST SURGICAL HISTORY OF 09/2017 [place] PICC LINE INSERT/CONSULT 08/16/2017 Social History Tobacco [...] which included preparing to see the patient, [id number] patient care, completing clinical documentation, performing a medically appropriate examination, counseling and educating the patient/family/caregiver, ordering medications, tests, or p rocedures, independently interpreting results (not separately reported), communicating results to the patient/family/caregiver, and care coordination (not separately reported). Zahra Buitrago MD, CPE Hematology and Oncology Services Provided at: [place], [place] CC: Dr. David Caputo [id number] [facility] [id number] documented in this encounterHolzer Health System09-13-2023 [facility] History general Narrative - Reported* Type Description Date Medical History BMI 20.0-20.9, adult Medical History Paroxysmal atrial fibrillation Medical History Lumbar pain Medical History Essential hypertension Medical History Tachypnea on examination Medical History Dyspnea on exertion Medical History Anxiety, generalized Medical History Anemia, macrocytic Medical History Elevated LFTs Medical History Fatigue Medical History CAD in [place] artery Medical History Malignant neoplasm of duodenum Surgical History heart stent 2010 Surgical History stomach ulcer 2017 Surgical History gallbladder 2018 Surgical History whipple 2018 Surgical History colonoscopy 2020 Hospitalization History SEE SURGICAL HX [employer] Other 09-07-2023 History general Narrative - Reported* Type Description Date Medical History BMI 20.0-20.9, adult Medical History Paroxysmal atrial fibrillation Medical History Lumbar pain Medical History Essential hypertension Medical History Tachypnea on examination Medical History Dyspnea on exertion Medical History Anxiety, generalized Medical History Anemia, macrocytic Medical History Elevated LFTs Medical History Fatigue Medical History CAD in [place] artery Medical History Malignant neoplasm of duodenum Surgical History heart stent 2010 Surgical History stomach ulcer 2017 Surgical History gallbladder 2018 Surgical History whipple 2018 Surgical History colonoscopy 2020 Hospitalization History SEE SURGICAL HX [employer] Other 09-07-2023 Evaluation note* Encounter Date Diagnosis Assessment Notes Treatment Notes Treatment Clinical Notes Feb, SIRS (systemic inflammatory response syndrome) (ICD-10 - R65.10) Reviewed hospital notes and discharge summary. Overall improved. Feb, Coronary artery disease involving [place] coronary artery of [place] heart without angina pectoris (ICD-10 - I25.10) Chronic - continue followup w cardio and oncology. Feb, Type 2 diabetes mellitus with hyperglycemia, without long-term current use of insulin (ICD-10 - E11.65) Glucose improved from earlier this summer. Son will call with some readings at home. [employer] Other 09-07-2023 Miscellaneous Notes* Telephone Encounter - Haley Miller MA - 03/05/2023 11:34 AM EDT Patient has an appt on 03/11/23. Would you like labs, if so place orders. His PET scan is 03/11/23. Haley Miller MA documented in this encounterHolzer Health System08-24-[address] [facility] Instructions* Patient Instructions* Zahra Buitrago MD - 02/19/2023 4:16 PM EDT B12 shot today and every 4 weeks. Patient will continue folic acid 1 mg daily as Rx'd. PET/CT in 1-2 weeks RTC same day to review images. continue following with Dr. Caputo for DMII management. documented in this encounterHolzer Health System08-24-2023 History of Present illness Narrative* Zahra Buitrago MD - 02/19/2023 3:57 PM EDT Images from the original note were not included. NAME: Rocio Jackson CLINIC NO.: [id number] DATE OF SERVICE: February 19, 2023 (Iftikhar) [...] open wounds. CTCAP done late December in [place] concerning for possible metastatic disease. Updated Visit, [...] with his son Joaquin. Worked at a [employer]. Doing well overall is at his baseline. 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 His PFTs are pending, and he was [...] by mouth three times daily with meals. mdcgol-mtkiblke-dtjczht (CREON 24) 24,000-76,000 -120,000 unit delayed release [...] 5 blood transfusions Coronary artery disease involving [place] coronary artery Diabetes mellitus (HCC) 2017 Duodenal cancer (HCC) Dyslipidemia Fatigue Glaucoma Hypertension Myocardial infarction (HCC) 05/15/2011 PTSD (post-traumatic stress disorder) PAST SURGICAL HISTORY Procedure Laterality Date ANGIOPLASTY HX 05/15/2011 2 [place] CHOLECYSTECTOMY 08/11/2017 [facility] COLONOSCOPY PAST SURGICAL HISTORY OF Cardiac Stents x2 PAST SURGICAL HISTORY OF 09/2017 [place] PICC LINE INSERT/CONSULT 08/16/2017 Social History Tobacco [...] which included preparing to see the patient, nbyk-hz-nfsn patient care, completing clinical documentation, performing a medically appropriate examination, counseling and educating the patient/family/caregiver, ordering medications, tests, or p rocedures, and independently interpreting results (not separately reported). Zahra Buitrago MD, CPE Hematology and Oncology Services Provided at: [place], [place] CC: Dr. David Caputo [address] [place] [phone] documented in this encounterHolzer Health System08-22-2023 Miscellaneous Notes* Telephone Encounter - Katie Seay - 02/17/2023 2:14 PM EDT Patient has an appt on 02/19. Would you like labs? documented in this encounterHolzer Health System07-26-2023 Miscellaneous Notes* Telephone Encounter - Susan Jones RN - 01/21/2023 11:11 AM EDT FYI: Pt admitted to [facility] ICU. Presented w/ chest pain and elevated Troponin. 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 Dr Malhotra, Oncologist w/ the [facility] consulted. Copy of pt's last office note faxed to [phone]. Susan Jones RN documented in this encounterHolzer Health System07-19-2023 Evaluation note* Encounter Date Diagnosis Assessment Notes Treatment Notes Treatment Clinical Notes Dec, Anxiety, generalized (ICD-10 - F41.1) [employer] Other 07-19-2023 Miscellaneous Notes* Telephone Encounter - [...] advise. Cassandra Hernandez, RN documented in this encounterHolzer Health System07-07-2023 History general Narrative - Reported* Type Description Date Medical History BMI 20.0-20.9, adult Medical History Paroxysmal atrial fibrillation Medical History Lumbar pain Medical History Essential hypertension Medical History Tachypnea on examination Medical History Dyspnea on exertion Medical History Anxiety, generalized Medical History Anemia, macrocytic Medical History Elevated LFTs Medical History Fatigue Medical History CAD in [place] artery Medical History Malignant neoplasm of duodenum Surgical History heart stent 2010 Surgical History stomach ulcer 2016 Surgical History gallbladder 2017 Surgical History whipple 2017 Surgical History colonoscopy 2019 Hospitalization History SEE SURGICAL HX [employer] Other 07-06-2023 Evaluation note* Encounter Date Diagnosis [...] forward this info to for further help. [employer] Other 06-30-2023 Nurse Note* Katie Seay - 12/26/2022 4:03 PM EDT Patient Identification confirmed: yes. Injection given and documented on AUG per provider order. Katie Seay documented in this encounterHolzer Health System06-16-2023 History general Narrative - Reported* Type Description Date Medical History BMI 20.0-20.9, adult Medical History Paroxysmal atrial fibrillation Medical History Lumbar pain Medical History Essential hypertension Medical History Tachypnea on examination Medical History Dyspnea on exertion Medical History Anxiety, generalized Medical History Anemia, macrocytic Medical History Elevated LFTs Medical History Fatigue Medical History CAD in [place] artery Medical History Malignant neoplasm of duodenum Surgical History heart stent 2010 Surgical History stomach ulcer 2016 Surgical History gallbladder 2018 Surgical History whipple 2018 Surgical History colonoscopy 2019 Hospitalization History SEE SURGICAL HX [employer] Other 2023 Evaluation note* Encounter Date Diagnosis Assessment Notes Treatment Notes Treatment Clinical Notes Nov, Anxiety, generalized (ICD-10 - F41.1) Nov, Type 2 diabetes mellitus without complication, without long-term current use of insulin (ICD-10 - E11.9) Samples given from office Janumet - followup in [address] month[address] [facility] [employer] Other 06-02-2023 [facility] Nurse Note* Haley Miller MA - 11/28/2022 4:02 PM EDT Patient Identification confirmed: yes. Injection given and documented on AUG per provider order. Haley Miller MA documented in this encounterHolzer Health System06-02-2023 Instructions* Patient Instructions* Zahra Buitrago MD - 11/28/2022 3:42 PM EDT B12 shot today and every 4 weeks. Patient will continue folic acid 1 mg daily as Rx'd. Follow up in 8 weeks for labs and B12. Needs to follow up with Dr. Caputo regarding blood sugars >400 - please send office the labs result. documented in this encounterHolzer Health System06-02-2023 History of Present illness Narrative* Zahra Buitrago MD - 11/28/2022 3:37 PM EDT Images from the original note were not included. NAME: Rocio Jackson CLINIC NO.: [id number] DATE OF SERVICE: November 28, 2022 (Iftikhar) [...] with his son Joaquin. Worked at a [employer]. Doing well overall is at his baseline. 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 His PFTs are pending, and he was [...] the tongue every 5 minutes as needed. 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 Plan: lwcebm-kcawrscf-hprkloj (CREON 24) 24,000-76,000 -120,000 unit delayed release capsule PAST MEDICAL HISTORY Diagnosis Date Anemia Anxiety Bleeding ulcer 11/15/2016 required 5 blood transfusions Coronary artery disease involving [place] coronary artery Diabetes mellitus (HCC) 2017 Duodenal cancer (HCC) Dyslipidemia Fatigue Glaucoma Hypertension Myocardial infarction (HCC) 05/15/2011 PTSD (post-traumatic stress disorder) PAST SURGICAL HISTORY Procedure Laterality Date ANGIOPLASTY HX 05/15/2011 2 [place]p [place] CHOLECYSTECTOMY 08/11/2017 [facility] COLONOSCOPY PAST SURGICAL HISTORY OF Cardiac [...] which included preparing to see the patient, imjs-zx-auef patient care, completing clinical documentation, performing a medically appropriate examination, counseling and educating the patient/family/caregiver, ordering medications, tests, or p rocedures, and independently interpreting results (not separately reported). Zahra Buitrago MD, CPE Hematology and Oncology Services Provided at: [place], [place] CC: Dr. David Caputo [address] [facility] [phone] documented in this encounterHolzer Health System06-01-2023 Evaluation note* Encounter Date Diagnosis Assessment Notes Treatment Notes Treatment Clinical Notes Nov, Lumbar pain (ICD-10 - M54.50) [facility] [employer] Other 05-26-2023 Evaluation note* Encounter Date Diagnosis Assessment Notes Treatment Notes Treatment Clinical Notes October, Anxiety, generalized (ICD-10 - F41.1) [facility] [employer] Other 05-05-2023 Nurse Note* Haley Miller MA - 10/31/2022 3:35 PM EDT Patient Identification confirmed: yes. Injection given and documented on AUG per provider order. Haley Miller MA documented in this encounterHolzer Health System05-03-2023 Miscellaneous Notes* Telephone Encounter - Rola Gordon APRN.CNP - 10/29/2022 2:43 PM EDT The following approved medication requests have been transmitted electronically. Requested Prescriptions Signed Prescriptions Disp Refills metoclopramide HCl (REGLAN) 10 mg tablet 90 tablet 1 Sig: Take 1 tablet by mouth three times daily with meals. Authorizing Provider: ROLA GORDON APRN.CNP documented in this encounterHolzer Health System05-02-2023 History general Narrative - Reported* Type Description Date Medical History BMI 20.0-20.9, adult Medical History Paroxysmal atrial fibrillation Medical History Lumbar pain Medical History Essential hypertension Medical History Tachypnea on examination Medical History Dyspnea on exertion Medical History Anxiety, generalized Medical History Anemia, macrocytic Medical History Elevated LFTs Medical History Fatigue Medical History CAD in [place] artery Medical History Malignant neoplasm of duodenum Surgical History heart stent 2010 Surgical History stomach ulcer 2017 Surgical History gallbladder 2018 Surgical History whipple 2018 Surgical History colonoscopy 2019 Hospitalization History SEE SURGICAL HX [employer] Other 04-07-[address] [facility]04-07-2023 Nurse Note* Katie Seay - 10/03/2022 4:04 PM EDT Patient Identification confirmed: yes . Injection given and documented on AUG per provider order. Katie Seay documented in this encounterHolzer Health System03-10-2023 Nurse Note* Haley Miller MA - 09/05/2022 2:16 PM EST Patient Identification confirmed: yes. Injection given and documented on AUG per provider order. Haley Miller MA documented in this encounterHolzer Health System02-22-2023 Miscellaneous Notes* Telephone Encounter - Rola Gordon APRN.CNP - 08/20/2022 10:08 AM EST The following approved medication requests have been transmitted electronically. Requested Prescriptions Signed Prescriptions Disp Refills metoclopramide HCl (REGLAN) 10 mg tablet 90 tablet 1 Sig: Take 1 tablet by mouth three times daily with meals. Authorizing Provider: ROLA GORDON APRN.CNP documented in this encounterHolzer Health System02-10-[address] [facility]02-10-2023 Instructions* Patient Instructions* Zahra Buitrago MD - 08/08/2022 3:14 PM EST B12 shot today and every 4 weeks. Patient will continue folic acid 1 mg daily as Rx'd. RTC in 8 weeks for follow-up, labs and B12 See Rola Dee documented in this encounterHolzer Health System02-10-2023 History of Present illness Narrative* Zahra Buitrago MD - 08/08/2022 3:00 PM EST Images from the original note were not included. NAME: Rocio Jackson CLINIC NO.: [id number] DATE OF SERVICE: August 08, 2022 (Iftikhar) [...] with his son Joaquin. Worked at a [employer]. Doing well overall is at his baseline. Anemia unchanged. Not sure B12 shots are impacting him significantly - will re-visit next visit. Updated Visit, May 08, 2022: H/H improved with addition of folic acid as well as iron infusion. Continue B12 shots Still feels sluggish yet improved overall. Iron studies pending today. No abdominal pain or nausea. 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 His PFTs are pending, and he was [...] MOUTH THREE TIMES A DAY WITH MEALS aphkhf-ortljmwv-aadomxk (CREON 24) 24,000-76,000 -120,000 unit delayed release [...] 5 blood transfusions Coronary artery disease involving [place] coronary artery Diabetes mellitus (HCC) 2017 Duodenal cancer (HCC) Dyslipidemia Fatigue Glaucoma Hypertension Myocardial infarction (HCC) 05/15/2011 PTSD (post-traumatic stress disorder) PAST SURGICAL HISTORY Procedure Laterality Date ANGIOPLASTY HX 05/15/2011 2 [place]ents [place]p [place] CHOLECYSTECTOMY 08/11/2017 [facility] COLONOSCOPY PAST SURGICAL HISTORY OF Cardiac [...] which included preparing to see the patient, uwro-wg-fosw patient care, completing clinical documentation, obtaining and/or reviewing separately obtained history, performing a medically appropriate examination, counseling and educating the pat ient/family/caregiver and ordering medications, tests, or procedures. Zahra Buitrago MD, CPE [place], [place] CC: David Caputo MD [address] [facility] [phone] documented in this encounterHolzer Health System02-10-2023 Miscellaneous Notes* Telephone Encounter - Magalys Cruz RN - 08/08/2022 2:37 PM EST Received call from Paty at [facility] with urgent result: Glucose 501 Magalys Cruz RN documented in this encounterHolzer Health System01-19-2023 Evaluation note* Encounter Date Diagnosis Assessment Notes Treatment Notes Treatment Clinical Notes Jun, CAD in [place] artery (ICD-10 - I25.10) Continue medications as prescribed Jun, Atypical chest pain (ICD-10 - R07.89) Called [facility] left message to return my call. Patient has appointment 09/16. Requested moved up appointment and consider testing at their office as I know they would prefer. 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 Continues remission [employer] Other 01-09-2023 Miscellaneous Notes* Telephone Encounter - [...] recurrence.Thanks for calling him documented in this encounterHolzer Health System01-05-2023 NoteOhio [facility]01-05-2023 Nurse Note* Katie Seay - 07/03/2022 3:01 PM EST Patient Identification confirmed: yes. Injection given and documented on AUG per provider order. Katie Seay documented in this encounterHolzer Health System01-05-2023 NoteOhio [facility]01-05-2023 Instructions* Patient Instructions* Zahra Buitrago MD - 07/03/2022 2:18 PM EST B12 shot today and every [address] results pending today Triage to call results Thursday Patient will continue folic acid 1 mg daily as Rx'd. RTC in 4 weeks for follow-up, labs and B12 See Rola / Leila documented in this encounterHolzer Health System01-05-2023 History of Present illness Narrative* Zahra Buitrago MD - 07/03/2022 2:12 PM EST Images from the original note were not included. NAME: Rocio Jackson CLINIC NO.: [id number] DATE OF SERVICE: July 03, 2022 ([facility]) Some elements in this clinic [...] with his son Joaquin. Worked at a [employer]. Doing well overall is at his baseline. 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 His PFTs are pending, and he was [...] MOUTH THREE TIMES A DAY WITH MEALS cwljme-ifbowxqa-advzbqv (CREON 24) 24,000-76,000 -120,000 unit delayed release [...] 5 blood transfusions Coronary artery disease involving [place] coronary artery Diabetes mellitus (HCC) 2017 Duodenal cancer (HCC) Dyslipidemia Fatigue Glaucoma Hypertension Myocardial infarction (HCC) 05/15/2011 PTSD (post-traumatic stress disorder) PAST SURGICAL HISTORY Procedure Laterality Date ANGIOPLASTY HX 05/15/2011 2 [place]ents [place]p [place] CHOLECYSTECTOMY 08/11/2017 [facility] COLONOSCOPY PAST SURGICAL HISTORY OF Cardiac Stents x2 PAST SURGICAL HISTORY OF 09/2017 [place] PICC LINE INSERT/CONSULT 08/16/2017 Social History Tobacco [...] which included preparing to see the patient, xwpz-az-jqgz patient care, completing clinical documentation, obtaining and/or reviewing separately obtained history, performing a medically appropriate examination, counseling and educating the pat ient/family/caregiver and ordering medications, tests, or procedures. Zahra Buitrago MD, [place], [place] CC: David Caputo MD [facility] [facility] [phone] documented in this encounterHolzer Health System12-09-2022 NoteHNO ID: [id number] Author: Sandra Patiño Service: ? Author Type: ? Type: Progress Notes Filed: 06/06/2022 2:36 PM Note Text: Patient Identification confirmed: yes. Injection given and documented on AUG per provider order. Sandra PatiñoOhio State East Hospital12-09-2022 NoteOhio [facility] Hospital12-09-2022 History of Present illness Narrative* Sandra Patiño - 06/06/2022 2:34 PM EST Patient Identification confirmed: yes. Injection given and documented on AUG per provider order. Sandra Patiño documented in this encounterHolzer Health System12-09-2022 Instructions* Patient Instructions* Zahra Buitrago MD - 06/06/2022 2:23 PM EST B12 shot today and every 4 weeks. Labs pending today Triage to call results Thursday Monoferric 1000 mg if indicated. Patient will continue folic acid 1 mg daily as Rx'd. RTC in 4 weeks for follow-up, labs and B12 and CT's RTC same day as scans and labs documented in this encounterHolzer Health System12-09-2022 History of Present illness Narrative* Zahra Buitrago MD - 06/06/2022 1:57 PM EST Images from the original note were not included. NAME: Rocio Jackson CLINIC NO.: [id number] DATE OF SERVICE: June 06, 2022 ([facility]) Some elements in this clinic note [...] with his son Joaquin. Worked at a [employer]. Doing well overall is at his baseline. 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 His PFTs are pending, and he was [...] MOUTH THREE TIMES A DAY WITH MEALS jnjivh-wygrgvqz-rbjpote (CREON 24) 24,000-76,000 -120,000 unit delayed release [...] 5 blood transfusions Coronary artery disease involving [place] coronary artery Diabetes mellitus (HCC) 2017 Duodenal cancer (HCC) Dyslipidemia Fatigue Glaucoma Hypertension Myocardial infarction (HCC) 05/15/2011 PTSD (post-traumatic stress disorder) PAST SURGICAL HISTORY Procedure Laterality Date ANGIOPLASTY HX 05/15/2011 2 [place]ents [place] CHOLECYSTECTOMY 08/11/2017 [facility] COLONOSCOPY PAST SURGICAL HISTORY OF Cardiac [...] which included preparing to see the patient, rpxw-cr-mxrs patient care, completing clinical documentation, obtaining and/or reviewing separately obtained history, performing a medically appropriate examination, counseling and educating the pat ient/family/caregiver and ordering medications, tests, or procedures. Zahra Buitrago MD, CPE [facility] [place], [place] CC: David Caputo MD [address] [facility] [phone] documented in this encounterHolzer Health System11-15-2022 NotePROCEDURE: XR HIP LT 2 3V W PELVIS HISTORY: Low back pain ; acute left hip pain since falling one week ago COMPARISON: None. FINDINGS: BONES:No fracture, acute abnormality, or significant arthropathy. SOFT TISSUES:No visible soft tissue swelling. EFFUSION:None visible. OTHER: Negative. IMPRESSION: 1. No acute bone abnormality or significant degenerative joint disease. Electronically authenticated by: REBA REID Date: 2022-05-13 07:57[facility]11-10-2022 NoteOhio State East Hospital11-10-2022 History of Present illness Narrative* Zahra Buitrago MD - 05/08/2022 2:00 PM EST Images from the original note were not included. 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 His PFTs are pending, and he was [...] petechiae. ALLERGIES: ALLERGIES No Known Allergies MEDICATIONS: mebzwc-lfxrpnie-butbwlb (CREON 24) 24,000-76,000 -120,000 unit delayed release [...] 5 blood transfusions Coronary artery disease involving [place] coronary artery Diabetes mellitus (HCC) 2017 Duodenal cancer (HCC) Dyslipidemia Fatigue Glaucoma Hypertension Myocardial infarction (HCC) 05/15/2011 PTSD (post-traumatic stress disorder) PAST SURGICAL HISTORY Procedure Laterality Date ANGIOPLASTY HX 05/15/2011 2 [place]ents [place] CHOLECYSTECTOMY 08/11/2017 [facility] COLONOSCOPY PAST SURGICAL HISTORY OF Cardiac Stents x2 PAST SURGICAL HISTORY OF 09/2017 [place] PICC LINE INSERT/CONSULT 08/16/2017 Social History Tobacco [...] which included preparing to see the patient, ixqu-rv-rdye patient care, completing clinical documentation, obtaining and/or reviewing separately obtained history, performing a medically appropriate examination, counseling and educating the pat ient/family/caregiver and ordering medications, tests, or procedures. Zahra Buitrago MD, [place], [place] CC: David Caputo MD [address] [facility] [phone] documented in this encounterHolzer Health System11-10-2022 Instructions* Patient Instructions* Zahra Buitrago MD - [...] reticulonodular / inflammatory changes. documented in this encounterHolzer Health System10-13-2022 History of Present illness Narrative* Sofia Crouch RN - 04/10/2022 2:29 PM EDT Spoke with Pharmacy. Monoferric can be ran over 20 minutes and premeds can be omitted today per infusion protocol. Pt had recent infusion with no issues. Sofia Crouch RN documented in this encounterHolzer Health System10-13-2022 Instructions* Patient Instructions* Zahra Buitrago MD - [...] reticulonodular / inflammatory changes. documented in this encounterHolzer Health System10-13-2022 History of Present illness Narrative* Zahra Buitrago MD - 04/10/2022 1:08 PM EDT Images from the original note were not included. 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 His PFTs are pending, and he was [...] petechiae. ALLERGIES: ALLERGIES No Known Allergies MEDICATIONS: yvnkvp-wvdffeti-philzcr (CREON 24) 24,000-76,000 -120,000 unit delayed release [...] 5 blood transfusions Coronary artery disease involving [place] coronary artery Diabetes mellitus (HCC) 2017 Duodenal cancer (HCC) Dyslipidemia Fatigue Glaucoma Hypertension Myocardial infarction (HCC) 05/15/2011 PTSD (post-traumatic stress disorder) PAST SURGICAL HISTORY Procedure Laterality Date ANGIOPLASTY HX 05/15/2011 2 [place]ents [place]p [place] CHOLECYSTECTOMY 08/11/2017 [facility] COLONOSCOPY PAST SURGICAL HISTORY OF Cardiac [...] which included preparing to see the patient, pctt-wp-sbmf patient care, completing clinical documentation, obtaining and/or reviewing separately obtained history, performing a medically appropriate examination, counseling and educating the pat ient/family/caregiver and ordering medications, tests, or procedures. Zahra Buitrago MD, [place], [place] CC: David Caputo MD [address] [place] [phone] documented in this encounterHolzer Health System10-12-2022 Miscellaneous Notes* Telephone Encounter - Haley Miller MA - 04/09/2022 11:43 AM EDT Patient has an appt on 04/10/22. Would you like labs, if so place orders, your orders are for everyother week. Haley Miller MA documented in this encounterHolzer Health System09-29-2022 Miscellaneous Notes* Telephone Encounter - Rola Gordon APRN.CNP - 03/27/2022 11:27 AM EDT The following approved medication requests have been transmitted electronically. Requested Prescriptions Signed Prescriptions Disp Refills yhwxru-nniinzch-yqbyzwf (CREON 24) 24,000-76,000 -120,000 unit delayed release capsule 540 capsule 1 Sig: Take 2 capsules by mouth three times daily with meals. Authorizing Provider: ROLA GORDON APRN.CNP * Telephone Encounter - Imelda MónicasatyaSean - 03/27/2022 8:30 AM EDT Patient's insurance plan covers a 90 day supply. 90 day script pending. documented in this encounterHolzer Health System09-15-2022 Miscellaneous Notes* Telephone Encounter - Rola Gordon APRN.CNP - 03/13/2022 2:25 PM EDT The following approved medication requests have been transmitted electronically. Requested Prescriptions Signed Prescriptions Disp Refills folic acid 1 mg tablet 90 tablet 3 Sig: Take 1 tablet by mouth once daily. Authorizing Provider: ROLA GORDON APRN.CNP documented in this encounterHolzer Health System09-15-2022 History of Present illness Narrative* Rola Gordon APRN.CNP - 03/13/2022 1:00 PM EDT Images from the original note were not included. NAME: Rocio Jackson CLINIC NO.: [id number] DATE OF SERVICE: March 13, 2022 Some [...] 1000 mg today. 3. Patient did not sampler pickup prescription for folic acid. Will send a new prescription to patient's pharmacy of choice, [facility] in [place]. Patient will start folic acid 1 mg [...] colonoscopy as well as reports from his dinkey operator slag. His PFTs are pending, and he was [...] by mouth three times daily with meals. zvoxit-qzrlvwvd-jxcnpcn (CREON 24) 24,000-76,000 -120,000 unit delayed release [...] 5 blood transfusions Coronary artery disease involving [place] coronary artery Diabetes mellitus (HCC) 2017 Duodenal cancer (HCC) Dyslipidemia Fatigue Glaucoma Hypertension Myocardial infarction (HCC) 05/15/2011 PTSD (post-traumatic stress disorder) PAST SURGICAL HISTORY Procedure Laterality Date ANGIOPLASTY HX 05/15/2011 2 stents s[place]p [place];[facility] CHOLECYSTECTOMY 08/11/2017 [facility] COLONOSCOPY PAST SURGICAL HISTORY OF Cardiac Stents x2 PAST SURGICAL HISTORY OF 09/2017 [place] PICC LINE INSERT/CONSULT 08/16/2017 Social History Tobacco [...] Age of Onset Cancer Sister Rola Gordon APRN.GRISELDA [place], [place] CC: Zahra Buitrago MD [address] [place] [address] [place] [address] David Caputo MD [address] [facility] [phone] I spent a total of 30 minutes on the date of the service which included preparing to see the patient, bfqq-no-lkpk patient care, completing clinical documentation, obtaining and/or reviewing separately obtained history, performing a medically appropriate examination, counseling and educating the pat ient/family/caregiver, ordering medications, tests, or procedures, independently interpreting results (not separately reported), and communicating results to the patient/family/caregiver. documented in this encounterHolzer Health System09-15-2022 Miscellaneous Notes* Telephone Encounter - Fer Lopez - 03/13/2022 10:51 AM EDT 1st report of treatment-Non oncology regimen (Monoferric) Patient holds Medicare coverage and therefore no FA required. documented in this encounterHolzer Health System09-02-2022 History of Present illness Narrative* TRACI Andrade - 02/28/2022 9:33 AM EDT Patient is listed on the First Time Treatment Report. Patient is scheduled to receive a non-oncology treatment. No psychosocial assessment is indicated. MARINO Andrade documented in this encounterHolzer Health System08-22-2022 Miscellaneous Notes* Telephone Encounter - Cassandra Hernandez RN - 02/17/2022 10:57 AM EDT Pt daughter called to verify the RX reglan had been sent to [facility]. sent escript 02/12. I called to verify the RX was rec'd by the pharmacy, and spoke to Too, who verifies they have it ready for the pt. Called Shiela back and she is aware it is ready for sampler pickup. Cassandra Hernandez, RN documented in this encounterHolzer Health System08-18-2022 Nurse Note* Katie Seay - 02/13/2022 3:23 PM EDT Patient Identification confirmed: yes. Injection given and documented on AUG per provider order. Katie Seay documented in this encounterHolzer Health System08-18-2022 History of Present illness Narrative* Zahra Buitrago MD - 02/13/2022 2:48 PM EDT Images from the original note were not included. NAME: Rocio Jackson CLINIC NO.: [id number] DATE OF SERVICE: [facility] 2021 Some elements in this clinic note [...] determine additional need (iron etc) - See Roal / Leila please. 3. Labs in 3 [...] colonoscopy as well as reports from his dinkey operator slag. His PFTs are pending, and he was [...] by mouth three times daily with meals. dfhysr-eypiwzel-xhdrzxj (CREON 24) 24,000-76,000 -120,000 unit delayed release [...] 5 blood transfusions Coronary artery disease involving [place] coronary artery Diabetes mellitus (HCC) 2017 Duodenal cancer (HCC) Dyslipidemia Fatigue Glaucoma Hypertension Myocardial infarction (HCC) 05/15/2011 PTSD (post-traumatic stress disorder) PAST SURGICAL HISTORY Procedure Laterality Date ANGIOPLASTY HX 05/15/2011 2 [place] CHOLECYSTECTOMY 08/11/2017 [facility] COLONOSCOPY PAST SURGICAL HISTORY OF Cardiac Stents x2 PAST SURGICAL HISTORY OF 09/2017 [place] PICC LINE INSERT/CONSULT 08/16/2017 Social History Tobacco [...] which included preparing to see the patient, huae-yr-qfgu patient care, completing clinical documentation, obtaining and/or reviewing separately obtained history, performing a medically appropriate examination, counseling and educating the pat ient/family/caregiver and ordering medications, tests, or procedures. Zahra Buitrago MD, [place], [place] CC: Zahra Buitrago MD [address] [place] [address] [facility] [address] David Caputo MD [address] [place] [phone] documented in this encounterHolzer Health System08-17-2022 Miscellaneous Notes* Telephone Encounter - Rola Gordon [...] be sent to [facility] in [place]. CHRIS: Order pending. Please review and sign. Magalys Cruz RN documented in this encounterHolzer Health System08-15-2022 Miscellaneous Notes* Telephone Encounter - Rola Gordon [...] Thanks Veronica Hall RN documented in this encounterHolzer Health System07-21-2022 Evaluation note* Encounter Date Diagnosis Assessment Notes [...] WILL ORDER SOME TESTING AT THIS TIME [employer] Other 06-09-2022 Nurse Note* Homa Powell Ma - 12/05/2021 3:09 PM EDT Patient unsure of any of his medications and was instructed to bring a list next time he comes. Homa Powell Ma documented in this encounterHolzer Health System06-09-2022 History of Present illness Narrative* Zahra Buitrago MD - 12/05/2021 3:00 PM EDT Images from the original note were not included. NAME: Rocio Jackson [facility] NO.: [id number] DATE OF SERVICE: December 05, 2021 Referring [...] colonoscopy as well as reports from his dinkey operator slag. His PFTs are pending, and he was [...] mg by mouth twice daily before meals. ugbohi-sgkxdfou-sczzmtn (CREON 24) 24,000-76,000 -120,000 unit cpDR Take [...] CA 19-9 BLD (K31.5) Duodenal obstruction Plan: vjsglt-etnouaon-polfgzl (CREON 24) 24,000-76,000 -120,000 unit delayed release capsule (D50.9) Iron deficiency anemia, unspecified iron deficiency anemia type Plan: nwccfy-ujerehei-nrrdbbu (CREON 24) 24,000-76,000 -120,000 unit delayed release [...] 5 blood transfusions Coronary artery disease involving [place] coronary artery Diabetes mellitus (HCC) 2017 Duodenal cancer (HCC) Dyslipidemia Fatigue Glaucoma Hypertension Myocardial infarction (HCC) 05/15/2011 PTSD (post-traumatic stress disorder) PAST SURGICAL HISTORY Procedure Laterality Date ANGIOPLASTY HX 05/15/2011 2 [place]ents [place] CHOLECYSTECTOMY 08/11/2017 [facility] COLONOSCOPY PAST SURGICAL HISTORY OF Cardiac [...] which included preparing to see the patient, sweq-zp-fyka patient care, completing clinical documentation, obtaining and/or reviewing separately obtained history, performing a medically appropriate examination, counseling and educating the pat ient/family/caregiver and ordering medications, tests, or procedures. Zahra Buitrago MD, [facility] [place], [place] CC: Zahra Buitrago MD [address] [place] [address] [place] [address] David Caputo MD [address] [place] [phone] documented in this encounterHolzer Health System12-16-2021 Progress note Author Monico Reyez [facility] June 13, 2021 2:01pm Note Date/Time June 13, 2021 2:00pm [facility] at [address] [address] Hem/Onc Follow Up Note - OP Signed Patient: Rocio Jackson MR#: [id number] : 1955 Acct:[id number] Age/Sex: 66 / M Type: REG RCR [...] of the ampulla of Vater resected the [facility] number of years ago and then had adjuvant chemotherapy while I was at [facility]. Rocio is a patient well-known to me. 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 He has been followed since that time. Labs recently drawn at [place] and are overall negative except for mild macrocytosis. He appears to be doing overall very well Subjective/ROS - Narrative: No new complaints. [facility] - Medical History Medical History: Medical [...] mg PO DAILY 03/04/19 [History Confirmed 12/13/20] kavzrt-odsukmmz-lbbehmh 24,000-76,000-120,000 unit capsule,delayed rel (Creon) 1cap PO TID 03/04/19 [History Confirmed 12/13/20] metoprolol succinate 25 mg capsule sprinkle, ext. release 24 hr 25 mg PO DAILY 03/04/19 [History Confirmed 12/13/20] empagliflozin 25 mg tablet (Jardiance) 25 mg PO DAILY 02/28/20 [History Confirmed 12/13/20] tfbhyx-lpnufqur-gblsurq 24,000-76,000-120,000 unit capsule,delayed rel (Creon) 1cap PO [...] for coordination of care (as documented) and pqyz-hn-mmpe counseling of patient and/or family. Dictated By: Monico Reyez MD DD/ 1359 Signed By: <Electronically signed by MD Monico Reyez> 06/13/21 1408 [facility] Work Phone: 1(125) 977-229306-17-2021 Progress note Author Monico Reyez [facility] December 13, 2020 3:06pm Note Date/Time December 13, 2020 3:05 pm [facility] [place] [address] Hem/Onc Follow Up Note - OP Signed Patient: Rocio Jackson MR#: [id number] : 1955 Acct:[id number] Age/Sex: 65 / M Type: REG RCR [...] Vater having received adjuvant capecitabine and gemcitabine. [facility] - Medical History Medical History: Medical [...] for coordination of care (as documented) and noae-fi-lene counseling of patient and/or family. Dictated By: Monico Reyez MD DD/ 1502 Signed By: <Electronically signed by MD Monico Reyez> 12/13/20 1506 [facility] Work Phone: 1(322) 875-707112-08-2020 Progress note Author Monico Reyez [facility] June 05, 2020 1:30pm Note Date/Time June 05, 2020 1 :18pm [facility] [place] [address] Hem/Onc Follow Up Note - OP Signed Patient: Rocio Jackson MR#: [id number] : 1955 Acct:[id number] Age/Sex: 64 / M Type: REG RCR [...] Vater having received adjuvant capecitabine and gemcitabine. [facility] - Medical History Medical History: Medical [...] % (Auto) 57.8, Lymph % (Auto) 30.5, [place] % (Auto) 5.8, Eos % (Auto) 5.1, Baso % (Auto) 0.8, Neut # (Auto) 2.9, Lymph # (Auto) 1.5, [place] # (Auto) 0.3, Eos # (Auto) 0.3, [...] for coordination of care (as documented) and mgrc-jt-hptm counseling of patient and/or family. Dictated By: Monico Reyez MD DD/ 1312 Signed By: <Electronically signed by MD Monico Reyez> 06/05/20 1330 [facility] Work Phone: 1(481) 797-818009-08-2020 Progress note Author Monico Reyez [facility] March 06, 2020 1:51pm Note Date/Time March 06, 2020 1:50pm [facility] at [address] [address] Hem/Onc Follow Up Note - OP Signed Patient: Rocio Jackson MR#: [id number] : 1955 Acct:[id number] Age/Sex: 64 / M Type: REG RCR [...] that time. His latest CT scans at [facility] are negative. His biggestcomplaint today is weakness and fatigue. He does appear very pale overall we will check some basic blood work today and I will see him back in follow-up. [facility] - Medical History Medical History: Medical [...] for coordination of care (as documented) and jmgo-mm-lltx counseling of patient and/or family. Dictated By: Monico Reyez MD DD/ 1349 Signed By: <Electronically signed by MD Monico Reyez> 03/06/20 1351 [facility] Work Phone: 1(714) 613-849909-01-2020 Progress note Author Monico Reyez [facility] February 28, 2020 2:12pm Note Date/Time February 28, 2020 2:10pm [facility] at [address] [address] Hem/Onc Follow Up Note - OP Signed Patient: Rocio Jackson MR#: [id number] : 1955 Acct:[id number] Age/Sex: 64 / M Type: REG RCR [...] that time. His latest CT scans at [facility] are negative. His biggestcomplaint today is weakness and fatigue. He does appear very pale overall we will check some basic blood work today and I will see him back in follow-up. [facility] - Medical History Medical History: Medical History (Last Updated 02/28/20 @ 11:42 by Arnulfo Hrenandez RN) Anxiety Diabetes HTN (hypertension) Hyperlipemia Iron [...] % (Auto) 55.0, Lymph % (Auto) 32.7, [place] % (Auto) 9.3, Eos % (Auto) 2.4, Baso % (Auto) 0.6, Neut # (Auto) 3.0, Lymph # (Auto) 1.8, [place] # (Auto) 0.5, Eos # (Auto) 0.1, [...] for coordination of care (as documented) and jtxe-vy-fzlx counseling of patient and/or family. Dictated By: Monico Reyez MD DD/ 1409 Signed By: <Electronically signed by MD Monico Reyez> 02/28/20 1412 [facility] Work Phone: Evaluation note* Diagnosis Cancer [...] body of pancreas documented in this encounter [facility]* Diagnosis Macrocytosis- Primary Other specified diseases of blood and blood-forming organs Abnormal weight loss Loss of weight Adenocarcinoma (HCC) Other malignant neoplasm without specification of site 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 documented in this encounter [facility]* Diagnosis Iron deficiency anemia, unspecified iron deficiency anemia type- Primary 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 Macrocytosis Other specified diseases of blood and blood-forming organs documented in this encounter [facility]* Diagnosis Cancer of ampulla of Vater [...] B12 deficiency type documented [facility]* Diagnosis Macrocytosis- Primary Other specified diseases of blood and blood-forming organs Abnormal weight loss Loss of weight Adenocarcinoma (HCC) Other malignant neoplasm without specification of site 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 Anemia due to vitamin B12 deficiency, unspecified B12 deficiency type documented in this encounter [facility]* Diagnosis 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 Anemia due to vitamin B12 deficiency, unspecified B12 deficiency type Anemia due to folic acid deficiency, unspecified deficiency type Macrocytosis Other specified diseases of blood and blood-forming organs documented in this encounter [facility]* Diagnosis Macrocytosis- Primary Other specified diseases of blood and blood-forming organs Anemia due to vitamin B12 deficiency, unspecified B12 deficiency type Anemia due to folic acid deficiency, unspecified deficiency type 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 documented in this encounter [facility] noteNo InformationNokansas [facility] [employer] Other Evaluation note* Diagnosis Macrocytosis- Primary Other specified diseases of blood and blood-forming organs Abnormal weight loss Loss of weight Adenocarcinoma (HCC) Other malignant neoplasm without specification of site 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 documented in this encounter [facility]* Diagnosis Macrocytosis- Primary Other specified diseases of blood and blood-forming organs Abnormal weight loss Loss of weight Adenocarcinoma (HCC) Other malignant neoplasm without specification of site 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 documented in this encounter [facility]* Diagnosis Anemia due to vitamin B12 deficiency, unspecified B12 deficiency type- Primary Iron deficiency anemia, unspecified iron deficiency anemia type 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 Duodenal obstruction Other obstruction of duodenum Severe protein-calorie malnutrition (HCC) Other severe protein-calorie malnutrition [facility] noteNo assessment information availableMercy Health St. [facility] Work Phone: Evaluation note* Diagnosis Anemia due to vitamin B12 deficiency, unspecified B12 deficiency type- Primary documented in this encounter [facility]* Diagnosis 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 Abnormal weight loss Loss of weight Anemia due to vitamin B12 deficiency, unspecified B12 deficiency type Macrocytosis Other specified diseases of blood and blood-forming organs Iron deficiency anemia, unspecified iron deficiency anemia type documented in this encounter [facility]* Diagnosis 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 documented in this encounter [facility]* Diagnosis 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 Anemia due to vitamin B12 deficiency, unspecified B12 deficiency type Iron deficiency anemia, unspecified iron deficiency anemia type documented in this encounter [facility]* Diagnosis Macrocytosis- Primary Other specified diseases of blood and blood-forming organs Abnormal weight loss Loss of weight Adenocarcinoma (HCC) Other malignant neoplasm without specification of site 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 documented in this encounter [facility]* Diagnosis 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 Anemia due to vitamin B12 deficiency, unspecified B12 deficiency type Severe protein-calorie malnutrition (HCC) Other severe protein-calorie malnutrition documented in this encounter [facility]* Diagnosis Macrocytosis- Primary Other specified diseases of blood and blood-forming organs Abnormal weight loss Loss of weight Adenocarcinoma (HCC) Other malignant neoplasm without specification of site 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 documented in this encounter [facility]* Diagnosis Iron deficiency anemia, unspecified iron deficiency anemia type- Primary History of gastric cancer Rectal bleeding Hemorrhage of rectum and anus documented in this encounter [facility] SystemHistory general Narrative - Reported* Type Description Date Surgical History heart stent Surgical History stomach ulcer 2017 Surgical History gallbladder 2018 Surgical History whipple 2018 [employer] Other History general Narrative - Reported* Type Description Date Medical History BMI 20.0-20.9, adult Medical History Paroxysmal atrial fibrillation Medical History Lumbar pain Medical History Essential hypertension Medical History Tachypnea on examination Medical History Dyspnea on exertion Medical History Anxiety, generalized Medical History Anemia, macrocytic Medical History Elevated LFTs Medical History Fatigue Medical History CAD in [place] artery Medical History Malignant neoplasm of duodenum Surgical History heart stent 2010 Surgical History stomach ulcer 2017 Surgical History gallbladder 2018 Surgical History whipple 2017 Surgical History colonoscopy 2019 Hospitalization History SEE SURGICAL HX [employer] Other InstructionsNot on filedocumented in this encounter [facility] (narrative)* Diagnostic Procedure Only (Routine) - Authorized Specialty Diagnoses / Procedures Referred By Contac t Referred To Contact MOLECULAR & FUNCTIONAL IMAGING Diagnoses Cancer of ampulla of Vater (HCC) Procedures NM PET/CT SKULL-THIGH INITIAL PET IMAGING CT ATTENUATION SKULL BASE MID-THIGH Zahra Buitrago MD [address] [place] [address] [place] [address] Molecular & Functional Imaging [address] [place] [address] Referral ID Status Reason Start Date Expiration Date Visits Requested Visits Authorized [id number] Authorized Auto-Generat ed Referral 03/05/2023 03/20/2024 1 1 [facility] Summary Purpose Family History Unknown Family Member [...] Description Status Resuscitation FULL CODE Verified By [facility] Record Only Advance Directive Response Recorded Date/ Time Advance Directives No February 14, 2023 8:12am Reason for Referral Specialty Diagnoses / Procedures Referred By Marilee nathan Referred To Contact CT IMAGING Diagnoses Iron deficiency anemia, unspecified iron deficiency anemia type 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) Procedures CT CHEST W IVCON DIAGNOSTIC COMPUTED TOMOGRAPHY THORAX W/CONTRAST Zahra Buitrago MD [address] [place] [address] [place] [address] Ct Imaging Referral ID Status Reason Start Date Expiration Date Visits Requested Visits Authorized [id number] Authorized Auto-Generat ed Referral 02/04/2022 01/04/2023 1 1 Specialty Diagnoses / Procedures Referred By Marilee Referred To Contact CT IMAGING Diagnoses Iron deficiency anemia, unspecified iron deficiency anemia type 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) Procedures CT ABD/PEL W IVCON CT ABD & PELVIS W/CONTRAST Zahra Buitrago MD [address] [place] [address] [place] [address] Ct Imaging Referral ID Status Reason Start Date Expiration Date Visits Requested Visits Authorized [id number] Authorized Auto-Generat ed Referral 02/04/2022 01/04/2023 1 1 Specialty Diagnoses / Procedures Referred By Marilee Referred To Contact CT IMAGING Diagnoses Interstitial pulmonary disease (HCC) Cancer of ampulla of Vater (HCC) Anemia due to vitamin B12 deficiency, unspecified B12 deficiency type Procedures CT CHEST W IVCON DIAGNOSTIC COMPUTED TOMOGRAPHY THORAX W/CONTRAST Zahra Buitrago MD [address] [place] [place] [address] Ct Imaging Referral ID Status Reason Start Date Expiration Date Visits Requested Visits Authorized [id number] Authorized Auto-Generat ed Referral 07/04/2022 07/06/2023 1 1 Specialty Diagnoses / Procedures Referred By Contac t Referred To Contact CT IMAGING Diagnoses Interstitial pulmonary disease (HCC) Cancer of ampulla of Vater (HCC) Anemia due to vitamin B12 deficiency, unspecified B12 deficiency type Procedures CT ABD/PEL W IVCON CT ABD & PELVIS W/CONTRAST Zahra Buitrago MD [address] [place] [address] [place] [address] Ct Imaging Referral ID Status Reason Start Date Expiration Date Visits Requested Visits Authorized [id number] Authorized Auto-Generat ed Referral 07/04/2022 07/06/2023 1 1 Reason *FU 12/08 Last 2 O V and xray results - thank you Diagnosis 1 Lumbar pain (M54.50) Referral Organization [facility] marly Referring Provider First Name David Referring Provider Last Name Harshal Referring Provider Specialty Family [facility] cine Referred Organization [facility] [facility] Referred Provider Gladis Lopez Referred Address [address] [place], [place],[address] Referred Provider Specialty Pain Medicin e Referral Priority Routine General Notes Dorene Gunter 02:06:36 PM >received today, attachments made, notes locked, referral faxed Clinical Notes F: [id number] Specialty Diagnoses / Procedures Referred By Contac t Referred To Contact CT IMAGING Diagnoses Cancer of ampulla of Vater (HCC) Anemia due to vitamin B12 deficiency, unspecified B12 deficiency type Severe protein-calorie malnutrition (HCC) Procedures CT CHEST W IVCON DIAGNOSTIC COMPUTED TOMOGRAPHY THORAX W/CONTRAST Zahra Buitrago MD [address] [place] [address] [place] [address] Referral ID Status Reason Start Date Expiration Date Visits Requested Visits Authorized [id number] Authorized Auto-Generat ed Referral 06/29/2023 04/14/2024 1 1 Specialty Diagnoses / Procedures Referred By Contac t Referred To Contact CT IMAGING Diagnoses Cancer of ampulla of Vater (HCC) Anemia due to vitamin B12 deficiency, unspecified B12 deficiency type Severe protein-calorie malnutrition (HCC) Procedures CT ABD/PEL W IVCON CT ABD & PELVIS W/CONTRAST Zahra Buitrago MD [address] [place] [address] [place] [address] [place] [address] Referral ID Status Reason Start Date Expiration Date Visits Requested Visits Authorized [id number] Authorized Auto-Generat ed Referral 06/29/2023 04/14/2024 1 1 Specialty Diagnoses / Procedures Referred By Contac t Referred To Contact Diagnoses Iron deficiency anemia, unspecified iron deficiency anemia type History of gastric cancer Rectal bleeding Procedures EGD / Colonoscopy Rick Zapata, [address] [place] [id number] Referral ID Status Reason Start Date Expiration Date V isits Requested Visits Authorized [id number] Pending Review 07/17/2023 07/16/2024 1 1 Medications [...] over 45 Minutes, ONCE, 1 dose, On Conrelia 03/13/22 at 1330, Monitor patient for hypersensitivity [...] section and content) DATE CREATED AUTHOR 12/17/2017 [facility] DATE CREATED AUTHOR AUTHOR'S ORGANIZ ATION 12/31/2017 [facility] DATE CREATED AUTHOR AUTHOR'S ORGANIZ ATION 07/22/2022 [facility] DATE CREATED AUTHOR AUTHOR'S ORGANIZ ATION 09/17/2022 [facility] DATE CREATED AUTHOR AUTHOR'S ORGANIZ ATION 10/03/2022 [facility] DATE CREATED AUTHOR AUTHOR'S ORGANIZ ATION 02/28/2023 [facility] DATE CREATED AUTHOR AUTHOR'S ORGANIZ ATION 04/11/2023 [facility] Source Comments (unrecognize d section and content) In the event this informatio n is protected by the Federal Confidentiality of Alcohol and Drug Abuse Patient Records regulations: The Federal rules restrict any use of the information to criminally investigate or prosecute any alcohol or drug abuse patient.[facility] the event this information is protected by the Federal Confidentiality of Alcohol and Drug Abuse Patient Records regulations: The Federal rules restrict any use of the information to criminally investigate or prosecute any alcohol or drug abuse patient.[facility] SystemIn the event this information is protected by the Federal Confidentiality of Alcohol and Drug Abuse Patient Records regulations: The Federal rules restrict any use of the information to criminally investigate or prosecute any alcohol or drug abuse patient.[facility] SystemIn the event this information is protected by the Federal Confidentiality of Alcohol and Drug Abuse Patient Records regulations: The Federal rules restrict any use of the information to criminally investigate or prosecute any alcohol or drug abuse patient.[facility] SystemIn the event this information is protected by the Federal Confidentiality of Alcohol and Drug Abuse Patient Records regulations: The Federal rules restrict any use of the information to criminally investigate or prosecute any alcohol or drug abuse patient.[facility] SystemIn the event this information is protected by the Federal Confidentiality of Alcohol and Drug Abuse Patient Records regulations: The Federal rules restrict any use of the information to criminally investigate or prosecute any alcohol or drug abuse patient.[facility] SystemIn the event this information is protected by the Federal Confidentiality of Alcohol and Drug Abuse Patient Records regulations: The Federal rules restrict any use of the information to criminally investigate or prosecute any alcohol or drug abuse patient.[facility] SystemIn the event this information is protected by the Federal Confidentiality of Alcohol and Drug Abuse Patient Records regulations: The Federal rules restrict any use of the information to criminally investigate or prosecute any alcohol or drug abuse patient.[facility] SystemIn the event this information is protected by the Federal Confidentiality of Alcohol and Drug Abuse Patient Records regulations: The Federal rules restrict any use of the information to criminally investigate or prosecute any alcohol or drug abuse patient.[facility] SystemIn the event this information is protected by the Federal Confidentiality of Alcohol and Drug Abuse Patient Records regulations: The Federal rules restrict any use of the information to criminally investigate or prosecute any alcohol or drug abuse patient.[facility] SystemIn the event this information is protected by the Federal Confidentiality of Alcohol and Drug Abuse Patient Records regulations: The Federal rules restrict any use of the information to criminally investigate or prosecute any alcohol or drug abuse patient.[facility] SystemIn the event this information is protected by the Federal Confidentiality of Alcohol and Drug Abuse Patient Records regulations: The Federal rules restrict any use of the information to criminally investigate or prosecute any alcohol or drug abuse patient.[facility] SystemIn the event this information is protected by the Federal Confidentiality of Alcohol and Drug Abuse Patient Records regulations: The Federal rules restrict any use of the information to criminally investigate or prosecute any alcohol or drug abuse patient.[facility] SystemIn the event this information is protected by the Federal Confidentiality of Alcohol and Drug Abuse Patient Records regulations: The Federal rules restrict any use of the information to criminally investigate or prosecute any alcohol or drug abuse patient.[facility] SystemIn the event this information is protected by the Federal Confidentiality of Alcohol and Drug Abuse Patient Records regulations: The Federal rules restrict any use of the information to criminally investigate or prosecute any alcohol or drug abuse patient.[facility] SystemIn the event this information is protected by the Federal Confidentiality of Alcohol and Drug Abuse Patient Records regulations: The Federal rules restrict any use of the information to criminally investigate or prosecute any alcohol or drug abuse patient.[facility] SystemIn the event this information is protected by the Federal Confidentiality of Alcohol and Drug Abuse Patient Records regulations: The Federal rules restrict any use of the information to criminally investigate or prosecute any alcohol or drug abuse patient.[facility] SystemIn the event this information is protected by the Federal Confidentiality of Alcohol and Drug Abuse Patient Records regulations: The Federal rules restrict any use of the information to criminally investigate or prosecute any alcohol or drug abuse patient.[facility] SystemIn the event this information is protected by the Federal Confidentiality of Alcohol and Drug Abuse Patient Records regulations: The Federal rules restrict any use of the information to criminally investigate or prosecute any alcohol or drug abuse patient.[facility] SystemIn the event this information is protected by the Federal Confidentiality of Alcohol and Drug Abuse Patient Records regulations: The Federal rules restrict any use of the information to criminally investigate or prosecute any alcohol or drug abuse patient.[facility] SystemIn the event this information is protected by the Federal Confidentiality of Alcohol and Drug Abuse Patient Records regulations: The Federal rules restrict any use of the information to criminally investigate or prosecute any alcohol or drug abuse patient.[facility] SystemIn the event this information is protected by the Federal Confidentiality of Alcohol and Drug Abuse Patient Records regulations: The Federal rules restrict any use of the information to criminally investigate or prosecute any alcohol or drug abuse patient.[facility] SystemIn the event this information is protected by the Federal Confidentiality of Alcohol and Drug Abuse Patient Records regulations: The Federal rules restrict any use of the information to criminally investigate or prosecute any alcohol or drug abuse patient.[facility] SystemIn the event this information is protected by the Federal Confidentiality of Alcohol and Drug Abuse Patient Records regulations: The Federal rules restrict any use of the information to criminally investigate or prosecute any alcohol or drug abuse patient.[facility] SystemIn the event this information is protected by the Federal Confidentiality of Alcohol and Drug Abuse Patient Records regulations: The Federal rules restrict any use of the information to criminally investigate or prosecute any alcohol or drug abuse patient.[facility] SystemIn the event this information is protected by the Federal Confidentiality of Alcohol and Drug Abuse Patient Records regulations: The Federal rules restrict any use of the information to criminally investigate or prosecute any alcohol or drug abuse patient.[facility] SystemIn the event this information is protected by the Federal Confidentiality of Alcohol and Drug Abuse Patient Records regulations: The Federal rules restrict any use of the information to criminally investigate or prosecute any alcohol or drug abuse patient.[facility] SystemIn the event this information is protected by the Federal Confidentiality of Alcohol and Drug Abuse Patient Records regulations: The Federal rules restrict any use of the information to criminally investigate or prosecute any alcohol or drug abuse patient.[facility] SystemIn the event this information is protected by the Federal Confidentiality of Alcohol and Drug Abuse Patient Records regulations: The Federal rules restrict any use of the information to criminally investigate or prosecute any alcohol or drug abuse patient.[facility] SystemIn the event this information is protected by the Federal Confidentiality of Alcohol and Drug Abuse Patient Records regulations: The Federal rules restrict any use of the information to criminally investigate or prosecute any alcohol or drug abuse patient.[facility] SystemIn the event this information is protected by the Federal Confidentiality of Alcohol and Drug Abuse Patient Records regulations: The Federal rules restrict any use of the information to criminally investigate or prosecute any alcohol or drug abuse patient.[facility] SystemIn the event this information is protected by the Federal Confidentiality of Alcohol and Drug Abuse Patient Records regulations: The Federal rules restrict any use of the information to criminally investigate or prosecute any alcohol or drug abuse patient.[facility] SystemIn the event this information is protected by the Federal Confidentiality of Alcohol and Drug Abuse Patient Records regulations: The Federal rules restrict any use of the information to criminally investigate or prosecute any alcohol or drug abuse patient.[facility] SystemIn the event this information is protected by the Federal Confidentiality of Alcohol and Drug Abuse Patient Records regulations: The Federal rules restrict any use of the information to criminally investigate or prosecute any alcohol or drug abuse patient.[facility] SystemIn the event this information is protected by the Federal Confidentiality of Alcohol and Drug Abuse Patient Records regulations: The Federal rules restrict any use of the information to criminally investigate or prosecute any alcohol or drug abuse patient.[facility] SystemIn the event this information is protected by the Federal Confidentiality of Alcohol and Drug Abuse Patient Records regulations: The Federal rules restrict any use of the information to criminally investigate or prosecute any alcohol or drug abuse patient.[facility] SystemIn the event this information is protected by the Federal Confidentiality of Alcohol and Drug Abuse Patient Records regulations: The Federal rules restrict any use of the information to criminally investigate or prosecute any alcohol or drug abuse patient.[facility] SystemIn the event this information is protected by the Federal Confidentiality of Alcohol and Drug Abuse Patient Records regulations: The Federal rules restrict any use of the information to criminally investigate or prosecute any alcohol or drug abuse patient.[facility] SystemIn the event this information is protected by the Federal Confidentiality of Alcohol and Drug Abuse Patient Records regulations: The Federal rules restrict any use of the information to criminally investigate or prosecute any alcohol or drug abuse patient.[facility] SystemIn the event this information is protected by the Federal Confidentiality of Alcohol and Drug Abuse Patient Records regulations: The Federal rules restrict any use of the information to criminally investigate or prosecute any alcohol or drug abuse patient.[facility] SystemIn the event this information is protected by the Federal Confidentiality of Alcohol and Drug Abuse Patient Records regulations: The Federal rules restrict any use of the information to criminally investigate or prosecute any alcohol or drug abuse patient.[facility] SystemIn the event this information is protected by the Federal Confidentiality of Alcohol and Drug Abuse Patient Records regulations: The Federal rules restrict any use of the information to criminally investigate or prosecute any alcohol or drug abuse patient.[facility] SystemIn the event this information is protected by the Federal Confidentiality of Alcohol and Drug Abuse Patient Records regulations: The Federal rules restrict any use of the information to criminally investigate or prosecute any alcohol or drug abuse patient.[facility] SystemIn the event this information is protected by the Federal Confidentiality of Alcohol and Drug Abuse Patient Records regulations: The Federal rules restrict any use of the information to criminally investigate or prosecute any alcohol or drug abuse patient.[facility] Teams (unrecognized sec tion and content) Timber Supervisor Relationship Specialty Start Date End Date David Caputo MD [address] [place] [address] PCP - General Family Practice 12/13/19 Jose Segura DO Physician Hematology/Oncology 07/13/19 Rola Gordon, COMMERCIAL CREDIT OFFICER.OCCUPATIONAL HEALTH NURSE MANAGER [address] [place] [address] Nurse Practitioner Hematology/Oncology 07/13/19 Timber Supervisor Relationship Specialty Start Date End Date David Caputo MD [address] [place] [address] PCP - General Family Practice 12/13/19 Jose Segura DO Physician Hematology/Oncology 07/13/19 Rola Gordon, COMMERCIAL CREDIT OFFICER.OCCUPATIONAL HEALTH NURSE MANAGER [address] [facility] [place] [address] Nurse Practitioner Hematology/Oncology 07/13/19 Timber Supervisor Relationship Specialty Start Date End Date David Caputo MD [address] [place] [address] PCP - General Family Practice 12/13/19 Jose Segura DO Physician Hematology/Oncology 07/13/19 Rola Gordon, COMMERCIAL CREDIT OFFICER.OCCUPATIONAL HEALTH NURSE MANAGER [address] [place] [address] Nurse Practitioner Hematology/Oncology 07/13/19 Timber Supervisor Relationship Specialty Start Date End Date David Caputo MD [address] [place] [address] PCP - General Family Practice 12/13/19 Jose Segura DO Physician Hematology/Oncology 07/13/19 Rola Gordon, COMMERCIAL CREDIT OFFICER.OCCUPATIONAL HEALTH NURSE MANAGER [address] [place] [address] Nurse Practitioner Hematology/Oncology 07/13/19 Timber Supervisor Relationship Specialty Start Date End Date David Caputo MD [address] [facility] [address] PCP - General Family Practice 12/13/19 Jose Segura DO Physician Hematology/Oncology 07/13/19 Rola Gordon, COMMERCIAL CREDIT OFFICER.OCCUPATIONAL HEALTH NURSE MANAGER [address] [place] [address] Nurse Practitioner Hematology/Oncology 07/13/19 Timber Supervisor Relationship Specialty Start Date End Date David Caputo MD [address] [facility] [place] [address] PCP - General Family Practice 12/13/19 Jose Segura DO Physician Hematology/Oncology 07/13/19 Rola Gordon, COMMERCIAL CREDIT OFFICER.OCCUPATIONAL HEALTH NURSE MANAGER [address] [place] [address] Nurse Practitioner Hematology/Oncology 07/13/19 Timber Supervisor Relationship Specialty Start Date End Date David Caputo MD [address] [facility] [place] [address] PCP - General Family Practice 12/13/19 Jose Segura DO Physician Hematology/Oncology 07/13/19 Rola Gordon, COMMERCIAL CREDIT OFFICER.OCCUPATIONAL HEALTH NURSE MANAGER [address] [place] [address] Nurse Practitioner Hematology/Oncology 07/13/19 Timber Supervisor Relationship Specialty Start Date End Date David Caputo MD [address] [place] [address] PCP - General Family Practice 12/13/19 Jose Segura, DO Physician Hematology/Oncology 07/13/19 Rola Gordon, COMMERCIAL CREDIT OFFICER.OCCUPATIONAL HEALTH NURSE MANAGER [address] [place] [address] Nurse Practitioner Hematology/Oncology 07/13/19 Timber Supervisor Relationship Specialty Start Date End Date David Caputo MD [address] [place] [address] PCP - General Family Practice 12/13/19 Jose Segura, DO Physician Hematology/Oncology 07/13/19 Rola Gordon, COMMERCIAL CREDIT OFFICER.OCCUPATIONAL HEALTH NURSE MANAGER [address] [place] [address] Nurse Practitioner Hematology/Oncology 07/13/19 Timber Supervisor Relationship Specialty Start Date End Date David Caputo MD [address] [facility] [place] [address] PCP - General Family Practice 12/13/19 Jose Segura, DO Physician Hematology/Oncology 07/13/19 Rola Gordon, COMMERCIAL CREDIT OFFICER.OCCUPATIONAL HEALTH NURSE MANAGER [address] [place] [address] Nurse Practitioner Hematology/Oncology 07/13/19 Timber Supervisor Relationship Specialty Start Date End Date David Caputo MD [address] [facility] [place] [id number] PCP - General Family Practice 12/13/19 Jose Segura DO Physician Hematology/Oncology 07/13/19 Rola Gordon, COMMERCIAL CREDIT OFFICER.OCCUPATIONAL HEALTH NURSE MANAGER [address] [facility] [address] Nurse Practitioner Hematology/Oncology 07/13/19 Timber Supervisor Relationship Specialty Start Date End Date David Caputo MD [address] [facility] [place] [address] PCP - General Family Medicine 12/13/19 Jose Segura DO Physician Hematology/Oncology 07/13/19 Rola Gordon, COMMERCIAL CREDIT OFFICER.OCCUPATIONAL HEALTH NURSE MANAGER [address] [facility] [place] [address] Nurse Practitioner Hematology/Oncology 07/13/19 Timber Supervisor Relationship Specialty Start Date End Date David Caputo MD [address] [facility] [place] [address] PCP - General Family Medicine 12/13/19 Jose Segura DO Physician Hematology/Oncology 07/13/19 Rola Gordon, COMMERCIAL CREDIT OFFICER.OCCUPATIONAL HEALTH NURSE MANAGER [address] [facility] [place] [address] Nurse Practitioner Hematology/Oncology 07/13/19 Timber Supervisor Relationship Specialty Start Date End Date David Caputo MD [address] [facility] [place] [address] PCP - General Family Medicine 12/13/19 Jose Segura DO Physician Hematology/Oncology 07/13/19 Rola Gordon, COMMERCIAL CREDIT OFFICER.OCCUPATIONAL HEALTH NURSE MANAGER [address] [place] [address] Nurse Practitioner Hematology/Oncology 07/13/19 Timber Supervisor Relationship Specialty Start Date End Date David Caputo MD [address] [facility] [place] [address] PCP - General Family Medicine 12/13/19 Jose Segura DO Physician Hematology/Oncology 07/13/19 Rola Gordon, COMMERCIAL CREDIT OFFICER.OCCUPATIONAL HEALTH NURSE MANAGER [address] [place] [address] Nurse Practitioner Hematology/Oncology 07/13/19 Timber Supervisor Relationship Specialty Start Date End Date David Caputo MD [address] [facility] [place] [address] PCP - General Family Medicine 12/13/19 Jose Segura DO Physician Hematology/Oncology 07/13/19 Rola Gordon, COMMERCIAL CREDIT OFFICER.OCCUPATIONAL HEALTH NURSE MANAGER [address] [place] [address] Nurse Practitioner Hematology/Oncology 07/13/19 Timber Supervisor Relationship Specialty Start Date End Date David Caputo MD [address] [facility] [place] [address] PCP - General Family Medicine 12/13/19 Jose Segura, DO Physician Hematology/Oncology 07/13/19 Rola Gordon, COMMERCIAL CREDIT OFFICER.OCCUPATIONAL HEALTH NURSE MANAGER [address] [place] [address] Nurse Practitioner Hematology/Oncology 07/13/19 Timber Supervisor Relationship Specialty Start Date End Date David Caputo MD [address] [place] [address] PCP - General Family Medicine 12/13/19 Jose Segura DO Physician Hematology/Oncology 07/13/19 Rola Gordon, COMMERCIAL CREDIT OFFICER.OCCUPATIONAL HEALTH NURSE MANAGER [address] [facility] [place] [address] Nurse Practitioner Hematology/Oncology 07/13/19 Timber Supervisor Relationship Specialty Start Date End Date David Caputo MD [address] [place] [address] PCP - General Family Medicine 12/13/19 Jose Segura DO Physician Hematology/Oncology 07/13/19 Rola Gordon, COMMERCIAL CREDIT OFFICER.OCCUPATIONAL HEALTH NURSE MANAGER [address] [facility] [place] [address] Nurse Practitioner Hematology/Oncology 07/13/19 Timber Supervisor Relationship Specialty Start Date End Date David Caputo MD [address] [facility] [place] [address] PCP - General Family Medicine 12/13/19 Jose Segura DO Physician Hematology/Oncology 07/13/19 Rola Gordon, COMMERCIAL CREDIT OFFICER.OCCUPATIONAL HEALTH NURSE MANAGER [address] [place] [address] Nurse Practitioner Hematology/Oncology 07/13/19 Timber Supervisor Relationship Specialty Start Date End Date David Caputo MD [address] [facility] [place] [phone] PCP - General Family Medicine 12/13/19 Jose Segura DO Physician Hematology/Oncology 07/13/19 Rola Gordon, COMMERCIAL CREDIT OFFICER.OCCUPATIONAL HEALTH NURSE MANAGER [address] [place] [address] Nurse Practitioner Hematology/Oncology 07/13/19 Timber Supervisor Relationship Specialty Start Date End Date David Caputo MD [address] [facility] [place] [address] PCP - General Family Medicine 12/13/19 Jose Segura DO Physician Hematology/Oncology 07/13/19 Rola Gordon, COMMERCIAL CREDIT OFFICER.OCCUPATIONAL HEALTH NURSE MANAGER [address] [place] [address] Nurse Practitioner Hematology/Oncology 07/13/19 Timber Supervisor Relationship Specialty Start Date End Date David Caputo MD [address] [facility] [place] [id number] PCP - General Family Medicine 12/13/19 Jose Segura DO Physician Hematology/Oncology 07/13/19 Rola Gordon, COMMERCIAL CREDIT OFFICER.OCCUPATIONAL HEALTH NURSE MANAGER [address] [place] [address] Nurse Practitioner Hematology/Oncology 07/13/19 Timber Supervisor Relationship Specialty Start Date End Date David Caputo MD [address] [facility] [place] [address] PCP - General Family Medicine 12/13/19 Jose Segura DO Physician Hematology/Oncology 07/13/19 Rola Gordon, COMMERCIAL CREDIT OFFICER.OCCUPATIONAL HEALTH NURSE MANAGER [address] [place] [address] Nurse Practitioner Hematology/Oncology 07/13/19 Timber Supervisor Relationship Specialty Start Date End Date David Caputo MD [address] [facility] [place] [phone] PCP - General Family Medicine 12/13/19 Jose Segura DO Physician Hematology/Oncology 07/13/19 Rola Gordon, COMMERCIAL CREDIT OFFICER.OCCUPATIONAL HEALTH NURSE MANAGER [address] [place] [address] Nurse Practitioner Hematology/Oncology 07/13/19 Timber Supervisor Relationship Specialty Start Date End Date David Caputo MD [address] [facility] [place] [phone] PCP - General Family Medicine 12/13/19 Jose Segura DO Physician Hematology/Oncology 07/13/19 Rola Gordon, COMMERCIAL CREDIT OFFICER.OCCUPATIONAL HEALTH NURSE MANAGER [address] [place], [place] [id number] Nurse Practitioner Hematology/Oncology 07/13/19 Timber Supervisor Relationship Specialty Start Date End Date David Caputo MD [address] [facility] [place] [phone] PCP - General Family Medicine 12/13/19 Jose Segura DO Physician Hematology/Oncology 07/13/19 Rola Gordon, COMMERCIAL CREDIT OFFICER.OCCUPATIONAL HEALTH NURSE MANAGER [address] [place] [address] Nurse Practitioner Hematology/Oncology 07/13/19 Team Status: Active Member Role Status Dates David Caputo MD Primary Care Provider Active Team Status: Inactive Member Role Status Dates David Caputo MD Primary Care Provider Active Adriane Espitia MD Attending Provider Active Timber Supervisor Relationship Specialty Start Date End Date David Caputo MD [address] [facility] [place] [phone] PCP - General Family Medicine 12/13/19 Jose Segura DO Physician Hematology/Oncology 07/13/19 Rola Gordon, COMMERCIAL CREDIT OFFICER.OCCUPATIONAL HEALTH NURSE MANAGER [address] [place] [address] Nurse Practitioner Hematology/Oncology 07/13/19 Timber Supervisor Relationship Specialty Start Date End Date Dvaid Caputo MD [address] [facility] [place] [phone] PCP - General Family Medicine 12/13/19 Jose Segura DO Physician Hematology/Oncology 07/13/19 Rola Gordon, COMMERCIAL CREDIT OFFICER.OCCUPATIONAL HEALTH NURSE MANAGER [address] [place] [address] Nurse Practitioner Hematology/Oncology 07/13/19 Timber Supervisor Relationship Specialty Start Date End Date David Caputo MD [address] [facility] [place] [phone] PCP - General Family Medicine 12/13/19 Jose Segura DO Physician Hematology/Oncology 07/13/19 Rola Gordon, COMMERCIAL CREDIT OFFICER.OCCUPATIONAL HEALTH NURSE MANAGER [address] [place] [address] Nurse Practitioner Hematology/Oncology 07/13/19 Timber Supervisor Relationship Specialty Start Date End Date David Caputo MD [address] [facility] [place] [phone] PCP - General Family Medicine 12/13/19 Jose Segura DO Physician Hematology/Oncology 07/13/19 Rola Gordon, COMMERCIAL CREDIT OFFICER.OCCUPATIONAL HEALTH NURSE MANAGER [address] [place] [address] Nurse Practitioner Hematology/Oncology 07/13/19 Timber Supervisor Relationship Specialty Start Date End Date David Caputo MD [address] [facility] [place] [phone] PCP - General Family Medicine 12/13/19 Jose Segura DO Physician Hematology/Oncology 07/13/19 Rola Gordon, COMMERCIAL CREDIT OFFICER.OCCUPATIONAL HEALTH NURSE MANAGER [address] [place] [address] Nurse Practitioner Hematology/Oncology 07/13/19 Timber Supervisor Relationship Specialty Start Date End Date David Caputo MD [address] [place] [phone] PCP - General Family Medicine 12/13/19 Jose Segura DO Physician Hematology/Oncology 07/13/19 Rola Gordon, COMMERCIAL CREDIT OFFICER.OCCUPATIONAL HEALTH NURSE MANAGER [address] [place] [address] Nurse Practitioner Hematology/Oncology 07/13/19 Timber Supervisor Relationship Specialty Start Date End Date David Caputo MD [address] [place] [phone] PCP - General Family Medicine 12/13/19 Jose Segura DO Physician Hematology/Oncology 07/13/19 Rola Gordon, COMMERCIAL CREDIT OFFICER.OCCUPATIONAL HEALTH NURSE MANAGER [address] [place] [address] Nurse Practitioner Hematology/Oncology 07/13/19 Timber Supervisor Relationship Specialty Start Date End Date David Caputo MD [address] [place] [id number] PCP - General Family Medicine 07/16/23 Reason [...] Referred By Marilee t Referred To Contact Diagnoses Iron deficiency anemia, unspecified iron deficiency anemia type Zahra Buitrago MD [address] [place] [address] Zelalem Treat Zhane [address] [place] [address] Referral ID Status Reason Start Date Expiration Date V isits Requested Visits Authorized [id number] Authorized 03/08/2022 06/06/2022 99 99 Reason Onset [...] BE BASED ON THE PRIMARY CLINICAL RECORDS. [facility]. provides no warranty or guarantee of the accuracy or completeness of information in this document.
[2023-08-05 08:05] VITALS: BP 120/70; PULSE 65; RESP 18; TEMP 36.3; O2SAT 100; BMI 23.7
[2023-08-05 08:09] LABS: Glucometer 126 mg/dL (74-106)
[2023-08-05] MEDS: LACTATED RINGER'S SOLUTION 1,000 ML 50 ML IV (08:40)
--- NOTE | 2023-08-05 09:16 | P.GSPRC_ITS ---
Date of procedure: 08/05/23 Indications for Procedure: anemia unspecified Pre-op diagnosis: anemia unspecified Post-op diagnosis: other (gastritis/duodenitis; normal colon) Procedure: EGD with biopsy antrum and duodenal bulb Colonoscopy Anesthesia: MAC Surgeon: Rick Zapata Procedure Summary: PROCEDURE: The patient was taken to the Endoscopy Suite, placed in the left lateral recumbent position, given IV sedation as above. the Olympus EGD scope was advanced under direct visualization into the posterior pharynx esophagus stomach through the pylorus into the 1st 2nd 3rd and 4th portions of the duodenum. The pylorus appeared enlarged possibly from previous gastric surgery for gastric cancer. No gross polyps or tumors were seen. The scope was withdrawn to the duoddenal bulb where he had some inflammation and biopsies were taken and hemostasis maintained. The scope was returned to the stomach retroflexed on itself looking the [employer] ction which was normal. Biopsies were taken of the antrum and hemostasis maintained. He did have a lot of bile retention but no ulcers polyps or tumors were seen. The scope was withdrawn from the esophagus which was completely normal. A rectal digital exam was performed. The sphincter tone was found to be normal. prostate was smooth slightly enlargedd without masses.No rectal masses were appreciated. The Olympus video colonoscope was advanced under direct visualization to the rectum, sigmoid colon, descending colon, transverse colon and ascending colon to the ileocecal valve. The underside of the valve was seen. appendiceal lumen was visualized. Prep was okay but not the best. Any small lesions could've been missed. The scope was slowly withdrawn with air being desufflated as it was withdrawn. No gross tumors, polyps or diverticula were seen. The patient tolerated the procedure well and went to the Recovery Area in satisfactory condition. I recommend the patient have hematology consultation for possible bone marrow aspiration rule out myelodysplasia due to anemia. There is nothing in the gastrointestinal tract to account for his severe anemia. Estimated blood loss (mL): 0 Complications: No Condition: stable Disposition: PACU
[2023-08-05 10:35] VITALS: BP 105/77; PULSE 98; RESP 16; TEMP 36.4; O2SAT 99
[2023-08-05 10:50] VITALS: BP 122/91; PULSE 99; RESP 16; O2SAT 97
[2023-08-05 11:10] VITALS: BP 128/83; PULSE 99; RESP 16; O2SAT 98
[2023-08-06 12:56] LABS: H Pylori Tissue, Urease Negative
== END 2023-08-05 11:10 | disposition home or self-care (01) ==
PROVIDERS: PCP Family Medicine; Visit Provider Surgery
PROC: (CPT 43239; principal; 2023-08-05 09:25)
DX: D50.9 Iron deficiency anemia, unspecified (principal); K62.5 Hemorrhage of anus and rectum; Z85.028 Personal history of other malignant neoplasm of stomach; K29.70 Gastritis, unspecified, without bleeding; K29.80 Duodenitis without bleeding; Z79.01 Long term (current) use of anticoagulants; I48.91 Unspecified atrial fibrillation; I50.22 Chronic systolic (congestive) heart failure; R10.9 Unspecified abdominal pain; F41.8 Other specified anxiety disorders; I25.10 Atherosclerotic heart disease of native coronary artery without angina pectoris; I25.2 Old myocardial infarction; Z90.410 Acquired total absence of pancreas; Z90.49 Acquired absence of other specified parts of digestive tract; Z95.5 Presence of coronary angioplasty implant and graft; E43 Unspecified severe protein-calorie malnutrition; Z68.23 Body mass index [BMI] 23.0-23.9, adult
CPT/HCPCS: 43239; 45378; 36415; 82948; 87077; 88305; 99999; J2704

== ENCOUNTER 2023-11-26 13:55 | Outpatient (OUT) | payer MEDICARE, MEDICAID, SELFPAY ==
--- NOTE | 2023-11-26 14:16 | P.CN_ITS ---
Consult Note: HPI Data of Consult Patient: known to practice within the last 3 years Requesting Physician: Celia King NP Primary Care Provider: Carrie Caputo MD Consult Narrative Reason for consult: f/u Narrative: Geraldo Whitehead a pleasant 67 year old male presents for evaluation of chronic low back pain, patient presents today in . Pain today 3/10, achey without radiation. Patient tolerates medication well without side effects. Significant functional decline since last visit, FRANCIA 74%. Patient is no longer receiving home health or PT. cc:: CC: Celia King NP Review of Systems ROS Status of ROS 10 or more systems reviewed and unremark able except as noted in history and below [facility] Medical History (Updated 11/26/23 @ 14:24 by Celia King NP) Moderate protein-calorie malnutrition ?E44.0 - Moderate protein-calorie malnutrition (ICD-10) Type 2 diabetes mellitus with hyperglycemia ?E11.65 - Type 2 diabetes mellitus with hyperglycemia (ICD-10) Anemia due to blood loss, chronic ?D50.0 - Iron deficiency anemia secondary to blood loss (chronic) (ICD-10) Paroxysmal atrial fibrillation ?I48.0 - Paroxysmal atrial fibrillation (ICD-10) Chronic HFrEF (heart failure with reduced ejection fraction) ?I50.22 - Chronic systolic (congestive) heart failure (ICD-10) H/O malignant neoplasm of stomach ?Z85.028 - Personal history of other malignant neoplasm of stomach (ICD-10) CAD (coronary artery disease) ?I25.10 - Atherosclerotic heart disease of [employer] coronary artery without angina pectoris (ICD-10) Severe protein-calorie malnutrition ?E43 - Unspecified severe protein-calorie malnutrition (ICD-10) Anemia ?D64.9 - Anemia, unspecified (ICD-10) Low back pain ?M54.50 - Low back pain, unspecified (ICD-10) Myalgia ?M79.10 - Myalgia, unspecified site (ICD-10) Chronic pain syndrome ?G89.4 - Chronic pain syndrome (ICD-10) Abnormal CT of the abdomen ?R93.5 - Abnormal findings on diagnostic imaging of other abdominal regions, including retroperitoneum (ICD-10) Malnutrition ?E46 - Unspecified protein-calorie malnutrition (ICD-10) Afib ?I48.91 - Unspecified atrial fibrillation (ICD-10) Depression with anxiety ?F41.8 - Other specified anxiety disorders (ICD-10) Anemia ?D64.9 - Anemia, unspecified (ICD-10) Type 2 diabetes mellitus ?E11.9 - Type 2 diabetes mellitus without complications (ICD-10) Carotid artery calcification ?I65.29 - Occlusion and stenosis of unspecified carotid artery (ICD-10) CHF (congestive heart failure) ?I50.9 - Heart failure, unspecified (ICD-10) Cardiomyopathy ?I42.9 - Cardiomyopathy, unspecified (ICD-10) Anxiety ?F41.9 - Anxiety disorder, unspecified (ICD-10) Myocardial infarct ?I21.9 - Acute myocardial infarction, unspecified (ICD-10) Stomach cancer ?C16.9 - Malignant neoplasm of stomach, unspecified (ICD-10) Surgical History 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) ?Z90.49 - Acquired absence of other specified parts of digestive tract (ICD- 10) History of coronary artery stent placement ?Z95.5 - Presence of coronary angioplasty implant and graft (ICD-10) Family History Father Family history of COPD (chronic obstructive pulmonary disease) Family history of CHF (congestive heart failure) Mother Family history of diabetes mellitus Social History Within the past year, how often did you have a drink containing alcohol: monthly or less Within the past year, how many standard drinks containing alcohol did you have on a typical day: 1 or 2 Within the past year, how often did you have six or more drinks on one occasion: never Total score: 0 Score interpretation: A score less than 4 is consistent with normal alcohol consumption. 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 Known occupational exposures/hazards: Yes Known occupational exposures/hazards details: dust Highest level of school completed/degree received: 12th grade, no diploma Are you now , , , , never or living with a partner: In a typical week, how many times do you talk on the telephone with family, friends, or neighbors: 3 or more times per week How often do you get together with friends or relatives: 3 or more times per week How often do you attend rastafari or jehovah's witness services: never Do you belong to any clubs or organizations such as rastafari groups unions, fraternal or athletic groups, or school groups: no Total score: 1 Score interpretation: A score of less than or equal to 1 indicates the most socially isolated. Little interest or pleasure in doing things: several days Feeling down, depressed, or hopeless: several days Feel stressed/tense/nervous/anxious/difficulty sleeping: not at all Due to disability, difficulty making decisions: No Meds Home Medications and Allergies Home Medications ?Medication ?Instructions ?Recorded ?Confirmed ?Type atorvastatin 40 mg tablet 20 mg PO QPM 12/22/22 08/05/23 History baclofen 5 mg tablet 5 mg PO BID PRN muscle spasm 12/22/22 07/16/23 History fluoxetine 20 mg capsule 40 mg PO DAILY 12/22/22 07/16/23 History folic acid 1 mg tablet 1 mg PO DAILY 12/22/22 08/05/23 History uxvgki-kmafimns-dijxbmv 2 cap PO TID 12/22/22 08/05/23 History 24,000-76,000-120,000 unit capsule,delayed rel (Creon) metoclopramide HCl 10 mg tablet 10 mg PO TID 12/22/22 08/05/23 History metoprolol succinate 25 mg capsule 25 mg PO DAILY 12/22/22 08/05/23 History sprinkle, ext. release 24 hr sitagliptin phosphate 50 1 tab PO BID 12/22/22 08/05/23 History mg-metformin 1,000 mg tablet (Janumet) baclofen 10 mg tablet 5 mg PO TID PRN muscle spasm 01/19/23 07/16/23 History mirtazapine 15 mg tablet 15 mg PO .QHS PRN Not Specified 01/19/23 08/05/23 History alprazolam 0.25 mg tablet 0.25 mg PO TID PRN anxiety 5 days 07/19/23 08/05/23 Rx #15 tabs cefdinir 300 mg capsule 300 mg PO BID 7 days #14 caps 07/19/23 Rx metronidazole 500 mg tablet 500 mg PO QID 7 days #28 tabs 07/19/23 Rx insulin lispro 100 unit/mL 1 sliding scale dose subcut 08/05/23 08/05/23 History subcutaneous solution USEASDIRECTD Allergies Allergy/AdvReac Type Severity Reaction Status Date / Time No Known Drug Allergies Allergy Verified 07/16/23 00:25 Exam Constitutional Documenting provider has reviewed patient's vital signs: yes Common normals: no apparent distress, oriented x3, healthy appearing, alert and well nourished General appearance: cooperative HENMT Common normals: normocephalic, hearing grossly normal bilaterally and moist oral mucous membranes Head and scalp: normocephalic Eye Common normals: PERRL Pupil: PERRL Neck & C-Spine Common normals: full ROM General: normal visual inspection Chest Common normals: inspection of chest normal Respiratory Common normals: normal respiratory effort, no retractions and no use of acce ssory muscles Back & Pelvis Lumbar spine/lower back: ROM limited, pain with ROM and straight leg raise negative bilaterally Extremity Common normals: normal to inspection Neuro Common normals: oriented x3, CN's II-XII intact bilaterally, moves all extre mities, no focal motor deficits, no sensory deficits noted and deep tendon reflexes 2+ bilaterally Sensorium/orientation: alert Motor exam: no movement abnormalities noted and strength abnormal (generalized weakness) Psych Common normals: mental status grossly normal, thought process normal, cooperativ e, affect normal, speech normal and activity/motor behavior normal Speech: normal speech Thought process: normal thought process Results Additional Findings Additional findings: If on a controlled substance or opioids, I have checked an [place] report on this patient and there are no aberrancies noted in the prescribing history.??If on a controlled substance or opioid a drug screen was completed and reviewed within the last year, and if there has not been a drug screen completed we ordered one today to monitor higher risk, state monitored pain medication use. As part of providing excellent, safe, comprehensive care, the following was completed at our patient's visit: 1. A medication reconciliation and review to ensure accurate knowledge of current/active medications, including asking our patients to inform us about any uknm-zpa-aegxuto medications or herbal remedies/nutritional supplements/alternative remedies. 2. A review to specifically ensure our patients have had annual screening for screening for depression, screening for tobacco use, and screening for unhealthy alcohol use. For concerning screenings had a discussion with the patient, provided patient education, and recommended follow-up with primary care provider when appropriate. If patient noted with a risk of falling, they received education on strength, gait, and balance training to prevent future risk of falling. Assessment and Plan Assessment and Plan (1) Low back pain: (2) Myalgia: (3) Lumbar spondylosis: Plan patient has a visit with PCP tomorrow continues to find significant pain relief with tylenol and baclofen f/u 6 months, sooner if needed
== END 2023-11-26 13:56 | disposition home or self-care (01) ==
LOC: PM 13:56
PROVIDERS: PCP Family Medicine; Visit Provider Nurse Practitioner
DX: M54.50 Low back pain, unspecified (principal); M79.10 Myalgia, unspecified site; M47.816 Spondylosis without myelopathy or radiculopathy, lumbar region
CPT/HCPCS: G0463

== ENCOUNTER 2024-05-27 10:22 | Emergency (ER) | payer MEDICARE, SELFPAY ==
[2024-05-27] VITALS (68 sets, daily range): BP systolic 71–119; BP diastolic 54–82; PULSE 84–163; TEMP 36.7–36.9; O2SAT 79–100; BMI 21.0
--- OUTSIDE RECORDS SUMMARY | 2024-05-27 10:32 | XMS_ITS | CCD ---
Author Organization [facility] [employer] Care Team Providers Care Automation Test Developer Name Role Phone MICHAEL JOLLEY) Unavailable Unavailable MICHAEL JOLLEY) Unavailable Unavailable YAMILE CERDA Unavailable Unavailable MICHAEL JOLLEY) Unavailable Unavailable MICHAEL JOLLEY) Unavailable Unavailable MICHAEL JOLLEY) Unavailable Unavailable MICHAEL JOLLEY) Unavailable Unavailable HARMONY HINOJOSA Unavailable Unavailable MAU DUFFY Unavailable Unavailable ADRIANE NICHOLS Unavailable Unavailab manolo Unavailable Unavailable Jose Segura DO Unavailable [phone] Henry HEAD BAKER.Rola MILAN Unavailable David Caputo MD Primary Care Provider Nate Hanson Unavailable Jose Segura DO Unavailable Henry HEAD BAKER.Rola MILAN Unavailable David Caputo MD Primary Care Provider David Caputo Unavailable Jose Segura DO Unavailable David Caputo MD Primary Care Provider David Caputo MD Primary Care Provider Jose Segura DO Unavailable Henry HEAD BAKER.Rola MILAN Unavailable David Caputo MD Primary Care Provider DR DAVID CAPUTO Admitting Unavailable HARSHAL, DR DAVID Meza Attending Unavailable HARSHAL, DR DAVID Meza Consulting Unavailable DR DAVID CAPUTO Primary Care Unavailable DR IRVING ABREU Admitting Unavailabl DR SANDRA GodfreyIA E Primary Care Unavailable BRADY, DR IRVING Atkins Attending Unavailkourtney e BRADY, DR IRVING Atkins Consulting Unavailabl [...] Meza Primary Care Unavailable David Caputo Unavailable Brady, Dr. Irving Knight Referring Unava ilkinsey Abreu, Dr. Irving Knight Attending Unava ilkinsey Caputo, Dr. David Rodriguez Primary Care Unav ailkinsey Caputo, Dr. David Rodriguez Primary Care Unav ailable Brady, Dr. Irving Knight Referring Unava ilable Brady, Dr. Irving Knight Attending Unava ilMD David Hillman Primary Care Provider MD Adriane Espitia Attending Provider [phone] Dr. Adriane Espitia Unavailable Unavailable David Caputo MD Primary Care Provider DO Rick Zapata Attending Provider David Caputo Primary Care Unavailable Adriane Espitia Admitting Unavailable Adriane Espitia Attending Unavailable Adriane Espitia Admitting Unavailable Adriane Espitia Attending Unavailable David Caputo Primary Care Unavailable Rick Zapata Admitting Unavailable Rick Zapata Attending Unavailable DO Rick Zapata Attending Provider David Caputo MD Primary Care Provider IRVING ABREU Attending Unavailable DAVID CAPUTO Primary Care Unavailable David Caputo MD Primary Care Provider Jose Segura DO Unavailable ABHYANKAR, ZAHRA Referring Unavailable CAPUTO, DAVID [...] Unavailable ABHYANKAR, ZAHRA Referring Unavailable ABHYANKAR, ZAHRA Referring Unavailable CAPUTO, DAVID E Primary Care Unavailable ABHYANKAR, ZAHRA Referring Unavailable CAPUTO, DAVID E Primary Care Unavailable Allergies Allergy Classification Reported Allergen(s) Allergy Type Date of Onset Reaction(s) Facility (9 sources) Angiotensin Converting Enzyme (Ophelia) Inhibitors; Translations: [OPHELIA Inhibitors] Allergy to drug (finding) 4 [facility] 3 Repository (1 source) patient allergy list reviewed by nurse or physicia Propensity to adverse reactions 8 Comment:Done SensorTran Other (1 source) Allergies Reconciled Propensity to adverse reactions 1 Unknown SensorTran Other (1 source) Angiotensin-con verting enzyme inhibitor agent Drug Allergy [address] [facility] Work Phone: Medications Current Medications Medication Drug Class(es) Dates [...] by mouth every 6 hours as needed. 10/09/2017 Active Comment on above: Take 20.3 mL by mout h every 6 hours as needed. amylase 510235 unt / lipase 09038 unt / protease 55587 unt delayed release oral capsule (20 sources) Start: 09-08-2023 take 2 capsules by mouth three times daily at mealtime kdnjjy-ylttikdg-ra ylase (ZENPEP) 25,000-79,000- 105,000 unit delayed release capsule Take 2 capsules by mouth three times a day with meals. 540 capsule 3 09/08/2023 Active Start: 03-04-2019 End: 08-31-2023 take 89309-21698 capsules by mouth three times daily at mealtime Nsnfck-Bfmzmgmj-Ofvrosx (Creon) 24,000-76,000 -120,000 unit Capsule,Delayed Release(Dr/Ec) Active 1 CAP PO Three times daily January 15, 2021 11:00pm administer with meals and/or snacks Comment on above: Take 2 capsules by m outh three times daily with meals. Take 2 capsules by m outh three times a day with meals. apixaban 2.5 mg oral tablet (20 sources) Factor Xa Inhibitor Start: 01-23-2023 take 1 tablet by mouth once daily Eliquis Oral Tablet 2.5 MG 1 tablet Tablet Oral Give 1 tablet by mouth every day and evening shift related to PAROXYSMAL ATRIAL FIBRILLATION (I48.0) 01/23/2023 15:00:00 Start: 12-13-2018 End: 07-05-2024 take 1 tablet by mouth twice daily Apixaban (Eliquis) 2.5 mg Tablet Active 2.5 MG PO Twice daily March 03, 2019 11:00pm Eliquis Active Comment on above: Take 2.5 mg by mouth twice daily. atorvastatin 20 mg oral tablet (20 sources) HMG-CoA Reductase Inhibitor Start: End: take 1 tablet by mouth once daily Atorvastatin 20 mg tablet Active 20 MG PO Daily May 06, 2024 2:14pm Start: 10-06-2023 End: 05-02-2024 take 1 tablet by mouth once daily at bedtime Atorvastatin 20 mg tablet Discontinued 0 .ROUTE .COMPLEX January 12, 2024 2:41pm May 02, 2024 11:41am TAKE ONE TABLET BY MOUTH DAILY AT BEDTIME Start: 10-06-2023 take 1 tablet by tripp th once daily at bedtime Atorvastatin Active 0 .ROUTE .COMPLEX October 06, 2023 2:55pm TAKE ONE TABLET BY MOUTH DAILY AT BEDTIME Start: 02-04-2023 End: 10-06-2023 take 1 tablet by mouth once daily at bedtime Atorvastatin 20 mg tablet Discontinued 20 MG PO Daily at bedtime October 05, 2023 11:00pm October 06, 2023 1:55pm Start: 08-07-2017 End: 08-25-2023 take 1 tablet by mouth once daily Atorvastatin (Lipitor) 40 mg Tablet Discontinued 40 MG PO Daily March 03, 2019 11:00pm August 25, 2023 2:24pm Comment on above: Take 40 mg by mouth daily at bedtime. baclofen 10 mg oral tablet (20 sources) gamma-Aminobutyric Acid-ergic Agonist Start: 10-19-2023 take 1 tablet by mouth three times daily, then take 0.5 tablet by mouth once daily baclofen (Lioresal) 10 mg tablet Take 1 tablet (10 mg) by mouth 3 times a day. 1/2 tablet 3times daily 10/19/2023 Active Start: 08-25-2023 take 1 tablet by tripp th twice daily Baclofen 10 mg tablet Active 10 MG PO Twice daily August 25, 2023 12:00am Start: 01-23-2023 take 1 tablet by tripp th every twelve hours as needed for muscle spasms Baclofen Oral Tablet 5 MG 1 tablet Tablet Oral Give 1 tablet by mouth every 12 hours as needed for Muscle spasms 01/23/2023 14:00:00 take 1 tablet by tripp th every twelve hours Baclofen 10 MG 1 tablet as needed Orally Twice a day Active busPIRone hydrochloride 10 mg oral tablet (1 source) Start: 05-06-2024 take 1 tablet by mouth twice daily Buspirone 10 mg tablet Active 10 MG PO Twice daily May 06, 2024 12:00am Cholecalciferol (2 sources) Vitamin D Start: 01-28-2023 take 1 tablet by mouth once daily Cholecalciferol Oral Tablet 250 MCG (32654 UT) 1 tablet Tablet Oral Give 1 tablet by mouth every day shift related to 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) 01/28/2023 7:00:00 take 1 capsule by mouth once arjun ly Vitamin D3 1.25 MG (38486 UT) Oral Capsule TAKE 1 CAPSULE Daily Quantity: 0 Refills: 0 Ordered: 16-Sep-2022 DO Active sugar-free cholestyramine resin 4000 mg powder for oral suspension (20 sources) Bile Acid Sequestrant take 4 g by mouth three times daily at mealtime Cholestyramine-Aspartame (CHOLESTYRAMINE LIGHT) 4 gram powder Take 4 g by mouth three times daily with meals. Active Comment on above: Take 4 g by mouth th ree times daily with meals. Creon Oral Capsule Delayed Release Particles [id number] UNIT (2 sources) Start: 2022 take 80903-80126 [IU] by mouth at mealtime Creon Oral Capsule Delayed Release Particles [id number] UNIT 2 capsule Capsule Delayed Release Particles Oral Give 2 capsule by mouth with meals related to GASTRO-ESOPHAGEAL REFLUX DISEASE WITHOUT ESOPHAGITIS (K21.9);[facility] 02/08/2023 12:00:00 Start: 01-23-2023 End: 02-08-2023 take 52086-55319 [IU] by mouth at mealtime Creon Oral Capsule Delayed Release Particles [id number] UNIT 2 capsule Capsule Delayed Release Particles Oral Give 2 capsule by mouth with meals related to GASTRO-ESOPHAGEAL REFLUX DISEASE WITHOUT ESOPHAGITIS (K21.9);[facility] 01/23/2023 17:00:00 02/08/2023 8:05:00 Aborted docusate sodium 100 mg oral capsule (5 sources) Start: 09-07-2023 take 1 capsule by mouth once daily Docusate Sodium (Colace) 100 mg capsule Active 100 MG PO Daily September 06, 2023 11:00pm enteric contrast (will be provided with radiology test) (19 sources) Start: 03-10-[address] (will be provided with radiology test) Indications: Cancer of ampulla of Vater (HCC) , Iron deficiency anemia secondary to inadequate dietary iron intake , Anemia due to vitamin B12 deficiency, unspecified B12 deficiency type For CT CHESTABD/PEL W IVCON Routine order Administer, As Directed One Time Only, via Oral, Rectal, both Oral and Rectal, Enteric Tube, Stoma or Indwelling Catheter, Enteric Contrast as designated per enteric contrast guidelines 1 Each 03/10/2024 Active Start: 12-03-[address] (will be provided with radiology test) Indications: Iron deficiency anemia secondary to inadequate dietary iron intake , Cancer of ampulla of Vater (HCC) , Anemia due to vitamin B12 deficiency, unspecified B12 deficiency type For CT CHESTABD/PEL W IVCON Routine order Administer, As Directed One Time Only, via Oral, Rectal, both Oral and Rectal, Enteric Tube, Stoma or Indwelling Catheter, Enteric Contrast as designated per enteric contrast guidelines 1 Each 12/03/2023 Active Start: 12-03-[address] (will be provided with radiology test) Indications: Iron deficiency anemia secondary to inadequate dietary iron intake , Cancer of ampulla of Vater (HCC) , Anemia due to vitamin B12 deficiency, unspecified B12 deficiency type For CT CHESTABD/PEL W IVCON Routine order Administer, As Directed One Time Only, via Oral, Rectal, both Oral and Rectal, Enteric Tube, Stoma or Indwelling Catheter, Enteric Contrast as designated per enteric contrast guidelines 1 Each 0 12/03/2023 Active Start: 03-16-2023 End: 03-17-2023 enteric contrast (will [...] as designated per enteric contrast guidelines FLUoxetine 40 mg oral capsule (20 sources) Serotonin Reuptake Inhibitor Start: 4 End: 4 take 1 capsule by mouth once daily Fluoxetine 40 mg capsule Active 40 MG PO Daily February 15, 2024 12:51pm Start: 01-24-2023 End: 01-23-2023 take 1 tablet by mouth once daily FLUoxetine HCl Oral Tablet 20 MG 1 tablet Tablet Oral Give 1 tablet by mouth every day shift related to DEPRESSION, UNSPECIFIED (F32.A) 01/24/2023 7:00:00 01/23/2023 20:17:00 Aborted Start: 01-24-2023 take 1 capsule by mo [facility] once daily FLUOXETINE HCL 20 MG CAPSULE{100 EA} 1 capsule Capsule Oral GIVE 1 CAPSULE BY MOUTH ONCE DAILY (FORMULARY EQUIVALENT FOR TABLET) 01/24/2023 7:00:00 Start: 11-13-2022 take 1 capsule by [facility] every twenty-four hours FLUoxetine HCl 40 MG 1 capsule Orally Once a day for 30 days October, Active Start: 08-13-2022 End: 10-29-2023 take 1 capsule by mouth once daily FLUoxetine HCl 20 MG 1 capsule Orally Once a day for 90 days Jul, Active Start: 08-13-2022 take 1 capsule by [facility] every twenty-four hours FLUoxetine HCl 20 MG 1 capsule Orally Once a day for 90 days Jul, Active Start: 03-04-2019 End: 08-25-2023 Fluoxetine 40 mg Capsule Discontinued 20 MG PO Daily March 03, 2019 11:00pm August 25, 2023 2:24pm Start: 03-04-2019 End: 08-25-2023 take 20 mg by mouth once daily Fluoxetine Discontinued 20 MG PO Daily March 04, 2019 12:00am August 25, 2023 3:24pm Start: 03-17-2018 take 1 capsule by [facility] twice daily FLUoxetine HCl (PROZAC) 40 mg capsule Indications: Cancer of ampulla of Vater (HCC) , Duodenal obstruction , Abnormal weight loss Take 40 mg by mouth twice daily. 03/17/2018 Active Fluoxetine Activ e Comment on above: Take 40 mg by mouth twice daily. folic acid 1 mg oral tablet (20 sources) Start: 03-08-20 End: 02-10-20 take 1 tablet by mouth once daily folic acid 1 mg tablet take one tablet by mouth once daily 90 tablet 2 02/10/2024 Active Comment on above: Take 1 tablet by [facility] once daily. glipiZIDE 5 mg oral tablet (20 sources) Sulfonylurea take 1 tablet by mouth twice daily before mealtime glipiZIDE (GLUCOTROL) 5 mg tablet Take 5 mg by mouth twice daily before meals. Active Comment on above: Take 5 mg by mouth t wice daily before meals. iv contrast (will be provided with radiology test) (19 sources) Start: 03-10-20 iv contrast (will be provided with radiology test) Indications: Cancer of ampulla of Vater (HCC) , Iron deficiency anemia secondary to inadequate dietary iron intake , Anemia due to vitamin B12 deficiency, [...] CT contrast administration guidelines link. 1 Each 03/10/2024 Active Start: 12-03-2023 iv contrast (w ill be provided with radiology test) Indications: Iron deficiency anemia secondary to inadequate dietary iron intake , Cancer of ampulla of Vater (HCC) [...] CT contrast administration guidelines link. 1 Each 12/03/2023 Active Start: 12-03-2023 iv contrast (w ill be provided with radiology test) Indications: Iron deficiency anemia secondary to inadequate dietary iron intake , Cancer of ampulla of Vater (HCC) [...] contrast administration guidelines link. 1 Each 0 12/03/2023 Active Start: 03-16-2023 End: 03-17-2023 iv contrast (will be provide d with radiology test) Indications: Cancer of ampulla [...] DIABETES MELLITUS WITHOUT COMPLICATIONS (E11.9) 01/23/2023 15:00:00 ketoconazole 20 mg/ml medicated shampoo (3 sources) Azole Antifungal Start: 09-11-19 24 Ketoconazole 2 % shampoo Active 1 APPLIC TOPICAL 3 Times a week September 10, 2023 11:00pm metFORMIN hydrochloride 1000 mg / SITagliptin 50 mg oral tablet (20 sources) Biguanide, Dipeptidyl Peptidase 4 Inhibitor Start: 12-25-19 End: 01-21-20 take 1 tablet by mouth twice daily Sitagliptin Phos-Metformin (Janumet) 50-1,000 mg tablet Active 0 .ROUTE .COMPLEX 180 January 21, 2024 10:38am TAKE 1 TABLET BY MOUTH TWICE A DAY Start: 07-19-2023 End: 12-25-2023 take 1 tablet by mouth twice daily Sitagliptin Phos-Metformin (Janumet) 50-1,000 mg tablet Discontinued 1 TAB PO Twice daily August 25, 2023 12:00am October 19, 2023 11:15am Start: 12-12-2022 take 1 tablet by tripp th every twelve hours Janumet 50-1000 MG 1 tablet with meals Orally Twice a day for 30 days Nov, Active metoclopramide 10 mg oral tablet (20 sources) Dopamine-2 Receptor Antagonist Start: 10-17-2023 End: 03-31-2024 take 1 tablet by mouth three times daily at mealtime metoclopramide HCl (REGLAN) 10 mg tablet Take 1 tablet by mouth three times a day with meals. 90 tablet 3 04/01/2024 Active Start: 10-09-2023 End: 12-24-2023 take 1 tablet by mouth once 30 minutes before mealtime Metoclopramide Hcl 10 mg tablet Discontinued 10 MG PO 3x/Day before meals October 16, 2023 12:36pm December 24, 2023 1:31pm administer 30 minutes before meals Start: 03-04-2019 End: 10-15-2023 take 1 tablet by mouth before mealtime Metoclopramide Hcl (Reglan) 10 mg Tablet Discontinued 10 MG PO before meals October 15, 2021 12:45pm August 25, 2023 2:24pm Start: 03-04-2019 End: 02-10-2022 take 1 tablet by mouth once daily metoclopramide HCl (REGLAN) 10 mg tablet Take 1 tablet by mouth once daily. 30 tablet 3 01/26/2022 02/10/2022 Discontinued Comment on above: Take 10 mg by mouth once daily. Take 1 tablet by tripp th three times daily with meals. Take 1 tablet by tripp th once daily. TAKE ONE TABLET BY M OUT THREE TIMES A DAY WITH MEALS Take 1 tablet by tripp th three times a day with meals. Metoprolol Succinate Oral Capsule ER 24 Hour Sprinkle 25 MG (1 source) Start: 3 take 1 capsule by mouth once daily Metoprolol Succinate Oral Capsule ER 24 Hour Sprinkle 25 MG 1 capsule Capsule ER 24 Hour Sprinkle Oral Give 1 capsule by mouth every day shift related to PAROXYSMAL ATRIAL FIBRILLATION (I48.0);ESSENTIAL (PRIMARY) HYPERTENSI 01/24/2023 7:00:00 Multivitamin Oral Tablet (1 source) Start: 3 take 1 tablet by mouth once daily Multivitamin Oral Tablet 1 tablet Tablet Oral Give 1 tablet by mouth every day shift for Supplement related to WHIPPLE'S DISEASE (K90.81) 01/24/2023 7:00:00 omeprazole 20 mg delayed release oral capsule (14 sources) Proton Pump Inhibitor Start: 4 End: 4 take 1 capsule by mouth once daily Omeprazole 20 mg capsule,delayed release(DR/EC) Active 20 MG PO Daily May 06, 2024 2:14pm Start: 08-07-2017 End: 03-04-2019 take 1 capsule by mouth once daily Omeprazole 20 mg Capsule,Delayed Release(Dr/Ec) Discontinued 20 MG PO Daily August 07, 2017 12:00am March 04, 2019 9:43pm peg 3350-sod sulf,amba-wbs-dlv 178.7-7.3-0.5 gram recon soln (1 source) Start: 07-17-2023 End: 07-18-2023 peg 3350-sod sulf,smqk-kbg-fku 178.7-7.3-0.5 gram recon soln Take 1 kit by mouth in the morning for 1 dose. Please see instructional sheet given by Physicians office. 1 each 0 07/17/2023 07/18/2023 Active rOPINIRole 1 mg oral tablet (5 sources) Nonergot Dopamine Agonist Start: 05-06-2024 take 1 tablet by mouth once daily at bedtime Ropinirole 1 mg tablet Active 1 MG PO Daily at bedtime May 06, 2024 2:12pm administer 1-3 hours before bedtime Start: 01-27-2024 End: 05-06-2024 take 1 tablet by mouth once daily at bedtime Ropinirole 0.5 mg tablet Discontinued 0.5 MG PO Daily at bedtime March 03, 2024 1:38pm May 06, 2024 2:12pm administer 1-3 hours before bedtime Start: 12-24-2023 End: 01-27-2024 take 1 tablet by mouth once daily at bedtime Ropinirole 0.25 mg tablet Discontinued 0.25 MG PO Daily at bedtime December 23, 2023 11:00pm January 27, 2024 7:22am administer 1-3 hours before bedtime True Metrix Blood Glucose Te st - (13 sources) Start: 03-17-2023 True Metrix Bl ood Glucose Test - as directed In Vitro to test once daily for 30 days Feb, Active Completed/Discontinued Medications Medication Drug Class(es) Dates Sig (Normalized) Sig (Original) acetaminophen 325 mg / HYDROcodone bitartrate 5 mg oral tablet (20 sources) Opioid Agonist Start: 08-25-2023 End: 12-24-2023 take 1 tablet by mouth four times daily as needed Hydrocodone-Acetami nophen 5-325 mg tablet Discontinued 1 TAB PO Four times daily as needed August 25, 2023 12:00am December 24, 2023 1:32pm Start: 10-28-2022 take 1 tablet by tripp th four [...] as needed for 7 days Jul, Active acetaminophen 325 mg / oxyCODONE hydrochloride 5 mg oral tablet (7 sources) Opioid Agonist Start: 08-11-2017 End: 08-18-2017 take 2 tablets by mouth every four to six hours as needed for pain Oxycodone-Acetaminophen (Percocet) 5-325 mg tablet Discontinued 2 TAB PO EVERY 4-6 HOURS as needed for pain 56 7 August 11, 2017 August 17, 2017 12:00am August 18, 2017 12:02am ALPRAZolam 0.25 mg oral tablet (20 sources) Benzodiazepine Start: 03-17-2018 End: 05-06-2024 take 1 tablet by mouth twice daily as needed for anxiety Alprazolam (Xanax) 0.25 mg tablet Discontinued 0.25 MG PO Twice daily as needed for anxiety 60 October 07, 2023 12:09pm November 04, 2023 11:09am Start: 03-17-2018 End: 03-28-2023 ALPRAZolam (XANAX) 0.25 mg t ablet Indications: Cancer of ampulla of Vater (HCC) , Duodenal obstruction , Abnormal weight loss Take 0.25 mg by mouth as needed. 0 03/17/2018 Active ALPRAZolam Activ e Comment on above: Take 0.25 mg by mout h as needed. aspirin 81 mg oral tablet (7 sources) Platelet Aggregation Inhibitor, Nonsteroidal Anti-inflammatory Drug Start: 8 End: 9 take 2 tablets by mouth once daily in the morning Aspirin 81 mg Tablet,Chewable Discontinued 162 MG PO Every morning August 07, 2017 12:00am March 04, 2019 9:43pm Start: 08-07-2017 End: 03-04-2019 take 162 mg by mouth once daily in the morning Aspirin Discontinued 162 MG PO Every morning August 07, 2017 1:00am March 04, 2019 10:43pm calcium-vitamin D3-magnesium 200 mg calcium- 1.25 mcg capsule (1 source) End: 10-29-2023 take 1 capsule by mouth once daily calcium-vitamin D3-magnesium 200 mg calcium- 1.25 mcg capsule Take 1 capsule by mouth once daily. 10/29/2023 Discontinued (Discontinued by another clinician) capecitabine (14 sources) Nucleoside Metabolic Inhibitor Xeloda Not-Taking carvedilol 25 mg oral tablet (7 sources) alpha-Adrenergic Juni, beta-Adrenergic Juni Start: 08-07-2017 End: 03-04-2019 take 1 tablet by mouth twice daily Carvedilol 25 mg Tablet Discontinued 25 MG PO Twice daily August 07, 2017 12:00am March 04, 2019 9:43pm empagliflozin 25 mg oral tablet (20 sources) Sodium-Glucose Cotransporter 2 Inhibitor Start: 12-27-2019 End: 08-25-2023 take 1 tablet by mouth once daily Empagliflozin (Jardiance) 25 mg Tablet Discontinued 25 MG PO Daily February 27, 2020 11:00pm August 25, 2023 2:24pm JARDIANCE Not-Ta remy gemcitabine (14 sources) Nucleoside Metabolic Inhibitor Gemcitabine HCl Not-Taking lisinopril 2.5 mg oral tablet (7 sources) Angiotensin Converting Enzyme Inhibitor Start: 08-07-19 End: 03-04-20 19 take 1 tablet by mouth once daily in the morning Lisinopril 2.5 mg Tablet Discontinued 2.5 MG PO Every morning August 07, 2017 12:00am March 04, 2019 9:43pm metFORMIN hydrochloride 1000 mg oral tablet (20 sources) Biguanide Start: 08-07-19 End: 08-25-19 take 1 tablet by mouth twice daily Metformin 1,000 mg Tablet Discontinued 1000 MG PO Twice daily August 07, 2017 12:00am August 25, 2023 2:24pm take 1 tablet by tripp th every twelve hours metFORMIN HCl - 1000 MG Oral Tablet TAKE 1 TABLET EVERY 12 HOURS. Quantity: 0 Refills: 0 Ordered: 09-Jan-2022 DO Active metFORMIN HCl No t-Taking Comment on above: Take 1,000 mg by tripp th twice daily with meals. 24 hr metoprolol succinate 25 mg extended release oral tablet (20 sources) beta-Adrenergic Juni Start: 03-04-2019 End: 08-25-2023 take 1 capsule by mouth once daily Metoprolol Succinate 25 mg Capsule,Sprinkle,Er 24hr Discontinued 25 MG PO Daily March 03, 2019 11:00pm August 25, 2023 2:23pm Start: 03-17-2018 End: 11-27-2023 take 1 tablet by mouth once daily Metoprolol Succinate 25 mg tablet extended release 24 hr Discontinued 25 MG PO Daily August 25, 2023 12:00am September 03, 2023 4:07pm Metoprolol Succi mario Active Comment on above: Take 25 mg by mouth once daily. mirtazapine 30 mg oral tablet (20 sources) Start: 08-25-2023 End: 08-27-2023 take 1 tablet by mouth once daily at bedtime Mirtazapine (Remeron) 15 mg tablet Discontinued 15 MG PO Daily at bedtime August 25, 2023 12:00am August 27, 2023 2:18pm Start: 07-22-2023 End: 03-03-2024 take 1 tablet by mouth once daily at bedtime Mirtazapine 30 mg tablet Discontinued 30 MG PO Daily at bedtime August 27, 2023 12:00am December 01, 2023 8:55am Start: 01-23-2023 End: 03-28-2023 take 1 tablet [...] a day for 30 days Dec, Active nitroglycerin 0.4 mg sublingual tablet (20 sources) Nitrate Vasodilator Start: 08-07-2017 End: 02-28-2020 Nitroglycerin 0.4 mg Tablet, Sublingual Discontinued 0.4 MG SUBLINGUAL Q5M as needed for Chest Pain August 07, 2017 12:00am February 28, 2020 10:29am Comment on above: Dissolve 0.4 mg unde r the tongue every 5 minutes as needed. sAXagliptin 5 mg oral tablet (9 sources) Dipeptidyl Peptidase 4 Inhibitor Start: 08-07-2017 End: 12-05-2021 take 1 tablet by mouth once daily in the morning Saxagliptin 5 mg tablet Discontinued 5 MG PO Every morning August 07, 2017 12:00am March 04, 2019 9:43pm Comment on above: Take 5 mg by mouth o nce daily. 72 hr scopolamine 0.0139 mg/hr transdermal system (2 sources) Anticholinergic Start: 10-09-2017 End: 12-05-2021 scopolamine (TRANSDERM-SCOP) 1 mg over 3 days Apply 1 Patch as directed every 72 hours as needed. 0 10/09/2017 12/05/2021 Discontinued Comment on above: Apply 1 Patch as dir ected every 72 hours as needed. SITagliptin 100 mg oral tablet (7 sources) Dipeptidyl Peptidase 4 Inhibitor Start: 03-04-2019 End: 02-28-2020 take 1 tablet by mouth once daily Sitagliptin Phosphate (Januvia) 100 mg Tablet Discontinued 100 MG PO Daily March 03, 2019 11:00pm February 28, 2020 10:29am 24 hr venlafaxine 75 mg extended release oral tablet (20 sources) Serotonin and Norepinephrine Reuptake Inhibitor Start: 03-04-2019 End: 02-28-2020 take 1 tablet by mouth once daily Venlafaxine 75 mg Tablet Extended Release 24hr Discontinued 75 MG PO Daily March 03, 2019 11:00pm February 28, 2020 10:30am Start: 06-02-2018 take 1 capsule by [facility] once daily venlafaxine ER (EFFEXOR XR) 75 mg 24 hr capsule TAKE 1 CAPSULE BY MOUTH ONE TIME A DAY 0 06/02/2018 Active Comment on above: TAKE 1 CAPSULE BY [facility] ONE TIME A DAY vitamin b12 1 mg/ml injectable solution (7 sources) Vitamin B12 Start: 04-28-2024 End: 04-28-2024 inject 1 dose by intramuscular injection once 1,000 mcg, INTRAMUSCULAR, ONCE, 1 dose, On [place] 04/28/24 at 1500 Start: 03-31-2024 End: 03-31-2024 inject 1 dose by intramuscular injection once 1,000 mcg, INTRAMUSCULAR, ONCE, 1 dose, On [place] 03/31/24 at 1430 Start: 03-03-2024 End: 03-03-2024 inject 1 dose by intramuscular injection once 1,000 mcg, INTRAMUSCULAR, ONCE, 1 dose, On [place] 03/03/24 at 1300 Start: 01-29-2024 End: 01-29-2024 cyanocobalamin 1,000 mcg inj ection Start: 01-08-2024 End: 01-08-2024 cyanocobalamin 1,000 mcg inj ection Start: 12-03-2023 End: 12-03-2023 cyanocobalamin 1,000 mcg inj ection Start: 11-05-2023 End: 11-05-2023 cyanocobalamin 1,000 mcg inj ection Problems Active Problems Problem Classification Problem Date Documented Da te Episodic/Chronic Abdominal pain (7 sources) Abdominal pain; Translations: [Unspecified abdominal pain] 08-13-2017 Episodic Comment on above: Problem List clean-u p per request of Phys. EHR Cmte Anxiety disorders (20 sources) Anxiety disorder, unspecified; Translations: [Generalized anxiety disorder] Onset: 8 Chronic Comment on above: Problem List clean-u p per request of Phys. 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 EHR Cmte Cancer of pancreas (9 sources) Malignant tumor of body of pancreas; Translations: [Malignant neoplasm of body of pancreas] Chronic Comment on above: Problem List clean-u p per request of Phys. EHR Cmte Cancer of stomach (3 sources) Personal history of other malignant neoplasm [...] Onset: 8 Episodic Congestive heart failure; nonhypertensive (2 sources) Congestive heart failure stage C; Translations: [Congestive heart failure, unspecified] Onset: 4 07-06-2023 Chronic Coronary atherosclerosis and other heart disease (20 sources) Atherosclerotic heart disease of algaaciq coronary artery without angina pectoris; Translations: [Ischemic myocardial dysfunction] Onset: 8 Chronic Coronary atherosclerosis and other heart disease (17 sources) Presence of coronary angioplasty implant and graft; Translations: [Post percutaneous transluminal coronary angioplasty] Onset: 8 Episodic Deficiency and other anemia (1 source) Other pancytopenia; Translations: [OTHER PANCYTOPENIA] Onset: 3 Chronic Deficiency and other anemia (20 sources) Iron deficiency anemia; Translations: [Iron deficiency anemia, unspecified] Onset: 8 04-08-2018 Episodic Deficiency and other anemia (5 sources) Nutritional anemia, unspecified; Translations: [NUTRITIONAL ANEMIA UNSPECIFIED] Onset: 2 Episodic Deficiency and other anemia (20 sources) Deficiency anemias; Translations: [Nutritional anemia, unspecified] Episodic Deficiency and other anemia (8 sources) Anemia; Translations: [Anemia, unspecified] 02-28-2020 Episodic Comment on above: Problem List clean-u p per request of Phys. EHR Cmte Deficiency and other anemia (1 source) Deficiency and other anemia Onset: 3 Delirium, dementia, and amnestic and other cognitive disorders (5 sources) Frailty; 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] Onset: 4 10-29-2023 Chronic Diabetes mellitus with complications (20 sources) Type 2 diabetes mellitus with hyperglycemia; Translations: [Type II diabetes mellitus uncontrolled] Onset: 8 Chronic Diabetes mellitus without complication (20 sources) Diabetes mellitus; Translations: [Diabetes mellitus without mention of complication, type II or unspecified type, not stated as uncontrolled] Onset: 8 Chronic Disorders of lipid metabolism (20 sources) Hyperlipidemia; Translations: [Other and unspecified hyperlipidemia] Onset: 8 10-29-2023 Chronic Esophageal disorders (1 source) Esophageal disorders Onset: 8 Essential hypertension (20 sources) Essential hypertension; Translations: [Unspecified essential hypertension] Onset: 2 Chronic Essential hypertension (1 source) Essential hypertension Onset: 8 Gastroduodenal ulcer (except hemorrhage) (20 sources) Ulcer of duodenum; Translations: [Duodenal ulcer, unspecified as acute or chronic, without hemorrhage or perforation] Onset: 8 Chronic Gastrointestinal hemorrhage (2 sources) Rectal hemorrhage; Translations: [Hemorrhage of anus and rectum] 07-17-2023 Episodic Malaise and fatigue (20 sources) Weakness; Translations: [Fatigue] Onset: 3 Episodic Comment on above: Problem List clean-u p per request of Phys. EHR Cmte Malignant neoplasm without specification of site (20 sources) Malignant adenomatous neoplasm; Translations: [Malignant (primary) neoplasm, unspecified] Onset: 8 11-06-2017 Chronic Mood disorders (2 sources) Mood disorders Onset: 3 Nausea and vomiting (7 sources) Nausea and vomiting; Translations: [Nausea with vomiting, unspecified] 03-05-2019 Episodic Comment on above: Problem List clean-u p per request of Phys. 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; Translations: [SHELTER CURRNT USE ANTICOAGULANTS] Onset: 3 Episodic Other aftercare (1 source) Other vermin exterminator (current) drug therapy; Translations: [OTH SHELTER CURRENT DRUG THERAPY] Onset: 3 Episodic Other [...] Chronic Other ear and sense organ disorders (16 sources) Impacted cerumen; Translations: [Impacted cerumen, bilateral] 09-11-2023 Episodic Other ear and sense organ disorders (2 sources) Impacted cerumen, bilateral; Translations: [Impacted cerumen] 09-11-2023 Episodic Other gastrointestinal disorders (20 sources) Diarrhea; Translations: [Diarrhea, unspecified] Episodic Other hematologic conditions (20 sources) Macrocytosis; Translations: [Other specified diseases of blood and blood-forming organs] Onset: 2 Chronic Other hereditary and degenerative nervous system conditions (2 sources) Restless legs; Translations: [Restless legs syndrome] 12-24-2023 Chronic Other hereditary and degenerative nervous system conditions (1 source) Restless legs syndrome; Translations: [Restless legs syndrome (RLS)] 12-24-2023 Chronic Other inflammatory condition of skin (3 sources) Seborrhea faciei; Translations: [Seborrheic dermatitis, unspecified] 09-11-2023 Episodic Other inflammatory condition of skin (1 source) Seborrheic dermatitis, unspecified; Translations: [Seborrhea] 09-11-2023 Episodic Other injuries and conditions due to [...] acute organ dysfunction Episodic Other liver diseases (7 sources) Elevated liver enzymes level; Translations: [Abnormal levels of other serum enzymes] 08-13-2017 Episodic Comment on above: Problem List clean-u p per request of Phys. EHR Cmte Other lower respiratory disease (2 sources) Interstitial lung disease; Translations: [Interstitial pulmonary disease, unspecified] Chronic Other lower respiratory disease (1 source) Unspecified abnormalities of breathing; Translations: [UNSPECIFIED ABNORMALITIES BREATHING] Onset: 3 Episodic Other lower respiratory disease (20 sources) Tachypnea; Translations: [Tachypnea, not elsewhere classified] Episodic Other lower respiratory disease (20 sources) Dyspnea on exertion; Translations: [Other forms of dyspnea] 09-11-2023 Episodic Other lower respiratory disease (13 sources) Dyspnea; Translations: [Other forms of dyspnea] Episodic Other lower respiratory disease (3 sources) Other forms of dyspnea; Translations: [Other respiratory abnormalities] 09-11-2023 Episodic Other lower respiratory disease (1 source) [...] weight loss] Onset: 8 03-26-2018 Episodic Other nutritional; endocrine; and metabolic disorders (4 sources) Decrease in appetite; Translations: [Anorexia] 08-31-2023 Episodic Other nutritional; endocrine; and metabolic disorders (2 sources) Anorexia; Translations: [Anorexia] 08-27-2023 Episodic Other screening for suspected conditions (not mental disorders or infectious disease) (20 sources) Encounter for screening for malignant neoplasm of prostate; Translations: [Elevated liver enzymes level] Onset: 2 Episodic Residual codes; unclassified (20 sources) Body mass index 20-24 - normal; Translations: [Body Mass Index between 19-24, adult] Onset: 4 10-29-2023 Episodic Residual codes; unclassified (14 sources) Normal body mass index; Translations: [Body mass index (BMI) 20.0-20.9, adult] Episodic Residual codes; unclassified (2 sources) Body mass index (BMI) 21.0-21.9, adult; Translations: [Body mass index (BMI) 21.0-21.9, adult] Onset: 4 Episodic Screening and history of mental health and substance abuse codes (10 sources) Ex-smoker; Translations: [Personal history of tobacco use] Onset: 4 10-29-2023 Episodic Spondylosis; intervertebral disc disorders; other back problems (1 source) Other intervertebral disc degeneration, lumbosacral region; Translations: [OTH IV DISC DEGEN LUMBOSACRAL RGN] Onset: 2 Chronic Spondylosis; intervertebral disc disorders; other back problems (20 sources) Low back pain; Translations: [Lumbar pain] 11-27-2023 Episodic Unclassified (1 source) Other specified health status; Translations: [Other specified health status] Onset: 8 Episodic Unclassified (1 source) Pain, unspecified; Translations: [Pain, unspecified] Onset: 8 Unclassified (1 source) Unknown / UNK(Unknown) Onset: 8 Unclassified (1 source) Athscl heart disease of algaaciq coronary artery w/o ang pctrs / I25.10(ICD-9) [...] [LOW BACK PAIN, UNSPECIFIED] Onset: 2 Unclassified (1 source) Low back pain, unspecified; Translations: [Low back pain, unspecified] Past or Other Problems Problem Classification Problem Date Documented Da te Episodic/Chronic Biliary tract disease (14 sources) Disorder of gallbladder; Translations: [Other specified diseases of gallbladder] Onset: 8 Episodic Cancer of other GI organs; peritoneum (7 sources) History of malignant neoplasm of pancreas; Translations: [Personal history of malignant neoplasm of other gastrointestinal tract] Onset: 4 07-06-2023 Episodic Deficiency and other anemia (2 sources) Iron deficiency anemia, unspecified; Translations: [Iron deficiency anemia, unspecified] Onset: 8 Resolved: 2 Episodic Deficiency and other anemia (20 sources) Nutritional anemia; Translations: [Vitamin B12 deficiency anemia, unspecified] Onset: 8 Episodic Deficiency and other anemia (1 source) Anemia, unspecified; Translations: [Anemia, unspecified] Onset: 3 Episodic Deficiency and other anemia (20 sources) Iron deficiency anemia secondary to inadequate dietary iron intake; Translations: [Other iron deficiency anemias] Onset: 4 09-10-2023 Episodic Deficiency and other anemia (1 source) Other iron deficiency anemias; Translations: [Iron deficiency anemia secondary to inadequate dietary iron intake] Onset: 4 Episodic Deficiency and other anemia (1 source) Vitamin B12 deficiency anemia, unspecified; Translations: [Anemia due to vitamin B12 deficiency, unspecified B12 deficiency type] Onset: 3 Episodic Immunizations and screening for infectious disease (1 source) Mantoux: negative Onset: 8 Resolved: 3 Episodic Other aftercare (7 sources) Health-related behavior finding; Translations: [Long-term (current) use of other medications] Onset: 4 07-06-2023 Episodic Other aftercare (7 sources) Drug therapy finding; Translations: [Long-term (current) use of anticoagulants] Onset: 4 07-06-2023 Episodic Other connective tissue disease (13 sources) Musculoskeletal symptom; Translations: [Other musculoskeletal symptoms referable to limbs] Onset: 9 Episodic Other connective tissue disease (1 source) Other musculoskeletal symptoms referable to limbs; Translations: [Other musculoskeletal symptoms referable to limbs] Onset: 9 Episodic Other gastrointestinal disorders (1 source) Other specified disorders of peritoneum; Translations: [Other specified disorders of peritoneum] Onset: 8 Episodic Other gastrointestinal disorders (1 source) Diarrhea, unspecified Onset: 2 Resolved: 2 Episodic Other gastrointestinal disorders (7 sources) History of gastrointestinal bleed; Translations: [Personal history of other diseases of digestive system] Onset: 4 07-06-2023 Episodic Other nervous system disorders (1 source) Walking disability Onset: 8 Resolved: 3 Chronic Unclassified (1 source) Encounter for preprocedural cardiovascular examination; Translations: [Encounter for preprocedural cardiovascular examination] Onset: 8 Unclassified (1 source) LOW BACK PAIN, UNSPECIFIED; Translations: [LOW BACK PAIN, UNSPECIFIED] Onset: 2 Unclassified (1 source) Lumbar pain M54.50 Unclassified (19 sources) Onset: 8 Resolved: 3 10-29-2023 Unclassified (1 source) Lumbar pain; Translations: [Lumbar pain] Results Test Name Value Interpretation Reference Range Facility [facility] 04-28-2024 [facility] Nurse Visit (HEMASA) ROCIO JACKSON ([id number]) 1955 M Date Time Provider Department 04/28/24 2:45 PM MELANI NURSE [place] POOL During your visit today, we recorded the following information about you: Temperature Pulse Respiration Blood pressure 97 degrees 106/minute 18/minute 78/50 Livier Seay MA 04/28/2024 2:55 PM Signed Patient Identification confirmed: yes. Injection given and documented on AUG per provider order. 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 - iv contrast (will be provided with radiology [...] in the CT contrast administration guidelines link. - enteric contrast (will be provided with radiology test) For CT CHESTABD/PEL W IVCON Routine order Administer, As Directed One Time Only, via Oral, Rectal, both Oral and Rectal, Enteric Tube, Stoma or Indwelling Catheter, Enteric Contrast as designated per enteric contrast guidelines - folic acid 1 mg tablet take one tablet by mouth once daily - iv contrast (will be provided with radiology [...] in the CT contrast administration guidelines link. - enteric contrast (will be provided with radiology test) For CT CHESTABD/PEL W IVCON Routine order Administer, As Directed One Time Only, via Oral, Rectal, both Oral and Rectal, Enteric Tube, Stoma or Indwelling Catheter, Enteric Contrast as designated per enteric contrast guidelines - iagjsg-cqtlkxuc-hcuzphu (ZENPEP) 25,000-79,000- 105,000 unit delayed release capsule Take 2 capsules by mouth three times a day with meals. - zsuqry-uvrleqnu-zmhblxb (CREON 24) 24,000-76,000 -120,000 unit delayed release capsule Take 2 capsules by mouth three times a day with meals. - Cholestyramine-Aspartame (CHOLESTYRAMINE LIGHT) 4 gram powder Take 4 g by mouth three times daily with meals. - glipiZIDE (GLUCOTROL) 5 mg tablet Take 5 mg by mouth twice daily before meals. - JARDIANCE 25 mg tablet - ELIQUIS 2.5 mg tab tab(s) Take 2.5 mg by mouth twice daily. - venlafaxine ER (EFFEXOR XR) 75 mg 24 hr capsule TAKE 1 CAPSULE BY MOUTH ONE TIME A DAY - metoprolol succinate ER (TOPROL XL) 25 mg 24 hr tablet Take 25 mg by mouth once daily. - ALPRAZolam (XANAX) 0.25 mg tablet Take 0.25 mg by mouth as needed. - FLUoxetine HCl (PROZAC) 40 mg capsule Take 40 mg by mouth twice daily. - acetaminophen (TYLENOL) 650 mg/20.3 mL soln Take 20.3 mL by mouth every 6 hours as needed. - atorvastatin (LIPITOR) 40 mg tablet Take 40 mg by mouth daily at bedtime. - nitroglycerin sublingual (NITROSTAT) 0.4 mg SL tablet Dissolve 0.4 mg under the tongue every 5 minutes as needed. 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 Injection given and documented on AUG per provider order. Livier Seay MA Prescriptions ordered this encounter Disp Refills Start End CYANOCOBALAMIN (VIT B-12) 1,000 MCG/* 04/28/2024 04/28/2024 Route: INTRAMUSCULA Encounter Status:Closed by LIVIER SEAY on 04/28/24 [facility] 03-31-2024 [facility] Nurse Visit (HEMASA) RENETTA,ROCIO ([id number]) 1955 M Date Time Provider Department 03/31/24 2:30 PM MELANI NURSE [place] PO[facility] During your visit today, we recorded the following information about you: Srinivasan See MA 03/31/2024 2:45 PM Signed Patient Identification confirmed: yes. Injection given and documented on AUG per provider order. 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 - enteric contrast (will be provided with radiology test) For CT CHESTABD/PEL W IVCON Routine order Administer, As Directed One Time Only, via Oral, Rectal, both Oral and Rectal, Enteric Tube, Stoma or Indwelling Catheter, Enteric Contrast as designated per enteric contrast guidelines - folic acid 1 mg tablet take one tablet by mouth once daily - iv contrast (will be provided with radiology [...] in the CT contrast administration guidelines link. - enteric contrast (will be provided with radiology test) For CT CHESTABD/PEL W IVCON Routine order Administer, As Directed One Time Only, via Oral, Rectal, both Oral and Rectal, Enteric Tube, Stoma or Indwelling Catheter, Enteric Contrast as designated per enteric contrast guidelines - metoclopramide HCl (REGLAN) 10 mg tablet Take 1 tablet by mouth three times a day with meals. - zjenwd-fweysvdv-rkcmyuz (ZENPEP) 25,000-79,000- 105,000 unit delayed release capsule Take 2 capsules by mouth three times a day with meals. - lxnyac-vljslfml-krpykll (CREON 24) 24,000-76,000 -120,000 unit delayed release capsule Take 2 capsules by mouth three times a day with meals. - Cholestyramine-Aspartame (CHOLESTYRAMINE LIGHT) 4 gram powder Take 4 g by mouth three times daily with meals. - glipiZIDE (GLUCOTROL) 5 mg tablet Take 5 mg by mouth twice daily before meals. - JARDIANCE 25 mg tablet - ELIQUIS 2.5 mg tab tab(s) Take 2.5 mg by mouth twice daily. - venlafaxine ER (EFFEXOR XR) 75 mg 24 hr capsule TAKE 1 CAPSULE BY MOUTH ONE TIME A DAY - metoprolol succinate ER (TOPROL XL) 25 mg 24 hr tablet Take 25 mg by mouth once daily. - ALPRAZolam (XANAX) 0.25 mg tablet Take 0.25 mg by mouth as needed. - FLUoxetine HCl (PROZAC) 40 mg capsule Take 40 mg by mouth twice daily. - acetaminophen (TYLENOL) 650 mg/20.3 mL soln Take 20.3 mL by mouth every 6 hours as needed. - atorvastatin (LIPITOR) 40 mg tablet Take 40 mg by mouth daily at bedtime. - nitroglycerin sublingual (NITROSTAT) 0.4 mg SL tablet Dissolve 0.4 mg under the tongue every 5 minutes as needed. Problem List As Of Date 03/31/2024 Noted Resolved Duodenal obstruction [K31.5] 08/13/2017 Severe protein-calorie malnutrition (HCC) [E43] 08/14/2017 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] 09/15/2017 Adenocarcinoma (HCC) [C80.1] 11/06/2017 Abnormal weight loss [R63.4] 03/26/2018 Anemia due to vitamin B12 deficiency [D51.9] 04/08/2018 Macrocytosis [D75.89] 02/13/2022 Iron deficiency anemia secondary to inadequate *09/10/2023 Visit Notes: >> Srinivasan See MA [facility] Mar 31, 2024 2:43 PM Status: Signed Patient Identification confirmed: yes. Injection given and documented on AUG per provider order. Srinivasan See MA Prescriptions ordered this encounter Disp Refills Start End CYANOCOBALAMIN (VIT B-12) 1,000 MCG/* 03/31/2024 03/31/2024 Route: INTRAMUSCULA Encounter Status:Closed by SRINIVASAN SEE on 03/31/24 [facility] 03-10-2024 [facility] Visit (SP) Office (H EMASA) ROCIO JACKSON ([id number]) 1955 M Date Time Provider Department 03/10/24 2:30 PM ZAHRA MAY During your visit today, we recorded the following information about you: Temperature Pulse Respiration Blood pressure 97.7 degrees 79/minute 16/minute 98/66 Zahra May MD 03/12/2024 8:26 AM Signed NAME: Rocio Jackson CLINIC NO.: [id number] DATE OF SERVICE: March 10, 2024 (Iftikhar) Some elements in this clinic note that are critical to medical decision making have been carefully reviewed and included from a prior clinic note dated: December 03, 2023 (Iftikhar) Referring Provider: Dr. Vanessa Bejarano Additional Clinicians involved in Rocio Jackson's care: Dr. David Caputo CC: Follow up on anemia. 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 H/O iron deficiency anemia 3. Folate deficiency anemia 4. B12 deficiency anemia ASSESSMENT: Cancer of ampulla of Vater [...] Doing well on B12 and folate replacement. No evidence of recurrence. PLAN: B12 shot on 04/01 and q 4 weeks Continue folic acid 1 mg daily as Rx'd CT scans with labs in 3 months RTC 1 week after Continue following with Dr. Caputo for DMII management - HPI: CASE HISTORY: Reverse Chronological Order 03/03/2024 - CT CAP: Chest: No CT evidence of metastatic disease in the chest. A/P: Moderate lobular appearing wall thickening is noted involving a segment of small bowel in the right lower quadrant, this appears to have been present on the previous scan performed in August 2023, and is new from more remote previous CTs performed in June 2022 and earlier. There was a suggestion of FDG uptake in this area on the PET CT performed in February 2023. The appearance is nonspecific, given the persistence, chronic inflammatory bowel disease or low-grade neoplasm would both be considerations. There is otherwise no CT evidence of recurrent or metastatic disease in the abdomen/pelvis. 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 09/03/2023 - CT CAP: Chest: Persistent elevation of the right hemidiaphragm. Adjacent compression atelectasis in the right lung field, increased since 03/11/23. Interval resolution of previously noted patchy opacity in the lingula. Otherwise no evidence of intrathoracic metastases. A/P: Mild mesenteric mesenteric lymphadenopathy, increased since 03/11/23. Prominent motion artifact. 03/11/2023 - PET/CT: HEAD and NECK: No evidence of focal uptake to suggest FDG avid neoplastic process.. CHEST: Focal airspace opacity and groundglass nodule in the left lung base with mild FDG uptake, probably inflammatory in nature. Follow-up is recommended. ABDOMEN/PELVIS: No evidence of focal uptake to suggest FDG avid neoplastic process. Probably postsurgical inflammation in abdomen. EXTREMITIES/SKELETON: No evidence of focal uptake to suggest FDG avid neoplastic process.. 03/2022 - IV iron 02/06/2022 - CT chest abdomen and pelvis with IV contrast: Chest: New reticulonodular opacities in the right upper lobe most likely infectious/inflammatory in etiology. Marked motion artifact. Findings compatible with previous granulomatous disease. A/P: Nonspecific borderline mesenteric lymphadenopathy, stable since 02/20/20. New trace pelvic ascites. Nonspecific persistent diffuse thickening of the urinary bladder wall. Stool is noted throughout the colon.Prominent motion artifact. 08/15/2019 - CT chest abdomen and pelvis with IV contrast: Chest: Several mildly prominent central mesenteric lymph nodes are again identified, stable from the prior examination of 12/21/2018. Postoperative changes, compatible with prior Whipple's procedure. No CT evidence for recurrent mass. A/P: There has been interval development of minimal patchy groundglass opacity, as well as a small consolidative opacity within the left lingula, likely infec (more content not included)... Normal [facility] CA 19-9on 03-04-2024 Cancer Ag 19-9 Qn 18.0 [arb'U]/mL NINF - 36.0 U/mL [facility] Comment on above: Cancer antigen 19-9 test is used as an aid in monitoring response to treatment or recurrence in patients with established pancreatic, hepatobiliary, or gastrointestinal malignancies. Clinical correlation is required. The CA 19-9 Antigen test was performed using the [employer] DXI paramagnetic particle chemiluminescent immunoassay method. Results obtained with different assay methods or kits cannot be used interchangeably. CT Abdomen and Pelvis W cont rast Petty 03-04-2024 IMPRESSION: 1. Moderate lobular appearing wall thickening is noted involving a segment of small bowel in the right lower quadrant, this appears to have been present on the previous scan performed in August 2023, and is new from more remote previous CTs performed in June 2022 and earlier. There was a suggestion of FDG uptake in this area on the PET CT performed in February 2023. The appearance is nonspecific, given the persistence, chronic inflammatory bowel disease or low-grade neoplasm would both be considerations. 2. There is otherwise no CT evidence of recurrent or metastatic disease in the abdomen/pelvis. 3. 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 Transcribe Date/Time: Mar 04 2024 11:42A Dictated by: DANIELLE OLIVA MD This examination was interpreted and the report reviewed and electronically signed by: DANIELLE OLIVA MD on Mar 04 2024 12:05PM EST Thank you for allowing us to participate in the care of your patient. Should there be any questions regarding this interpretation, please call [phone]. If you are unable to reach us at the number above, please feel free to contact [facility] at [phone]. 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 TECHNIQUE: CT of the abdomen and pelvis was performed using standard technique, scanning from just above the dome of the diaphragm to the symphysis pubis. MQ: CTAP_3 Contrast: IV: 100 ml of Omnipaque 350 Oral: 500 ml of Omni 240 10-25ml diluted with water CT Radiation dose: Integrated Dose-length product (DLP) for this visit = 726 mGy*cm. CT Dose Reduction Employed: Automated exposure control (AEC) COMPARISON: Multiple previous CTs of the abdomen/pelvis, the most recent dated 09/03/2023. PET/CT dated 03/11/2023. RESULT: Mildly limited exam due to motion artifact. Liver: Unremarkable. No mass. Biliary: Expected pneumobilia again present status post hepaticojejunostomy. No biliary ductal dilation. Surgically absent gallbladder. Spleen: No mass. No splenomegaly. 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 There is no pancreatic ductal dilation. There is no CT evidence of a pancreatic mass. Adrenals: No mass. Kidneys: Unremarkable within limitations of motion artifact. No mass or collecting system dilation. GI tract: There is moderate lobular appearing wall thickening involving a segment of small bowel in the right lower quadrant, seen for example on series 3 images 90-100. This appears to have been present on the previous scan performed in August 2023, and there is a suggestion of FDG uptake in this area in February 2023. This finding is not seen on more remote CTs performed in June 2022 or January 2022. No additional segments of small or large bowel wall thickening are seen. There is no small or large bowel dilation. Lymph nodes: No abdominal or pelvic lymphadenopathy. Mesentery/Peritoneum: No ascites or mass. Retroperitoneum: No mass. Vasculature: - Abdominal aorta and iliac arteries: Moderate calcified atherosclerotic disease, no aneurysm. - Celiac and SMA: Patent - Portal venous system (SMV, splenic vein, portal vein and branches): Patent. - Hepatic veins: Patent. Pelvis: No mass, ascites or fluid collection. Bones/Soft Tissues: Fluid is noted within the right inguinal canal. No destructive skeletal lesion is present. Lower thorax: Please see the separate report for the concurrently obtained CT of the chest. Localizer images: No additional findings. 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 TECHNIQUE: CT of the abdomen and pelvis was performed using standard technique, scanning from just above the dome of the diaphragm to the symphysis pubis. MQ: CTAP_3 Contrast: IV: 100 ml of Omnipaque 350 Oral: 500 ml of Omni 240 10-25ml diluted with water CT Radiation dose: Integrated Dose-length product (DLP) for this visit = 726 mGy*cm. CT Dose Reduction Employed: Automated exposure control (AEC) COMPARISON: Multiple previous CTs of the abdomen/pelvis, the most recent dated 09/03/2023. PET/CT dated 03/11/2023. RESULT: Mildly limited exam due to motion artifact. Liver: Unremarkable. No mass. Biliary: Expected pneumobilia again present status post hepaticojejunostomy. No biliary ductal dilation. Surgically absent gallbladder. Spleen: No mass. No splenomegaly. 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 There is no pancreatic ductal dilation. There is no CT evidence of a pancreatic mass. Adrenals: No mass. Kidneys: Unremarkable within limitations of motion artifact. No mass or collecting system dilation. GI tract: There is moderate lobular appearing wall thickening involving a segment of small bowel in the right lower quadrant, seen for example on series 3 images 90-100. This appears to have been present on the previous scan performed in August 2023, and there is a suggestion of FDG uptake in this area in February 2023. This finding is not seen on more remote CTs performed in June 2022 or January 2022. No additional segments of small or large bowel wall thickening are seen. There is no small or large bowel dilation. Lymph nodes: No abdominal or pelvic lymphadenopathy. Mesentery/Peritoneum: No ascites or mass. Retroperitoneum: No mass. Vasculature: - Abdominal aorta and iliac arteries: Moderate calcified atherosclerotic disease, no aneurysm. - Celiac and SMA: Patent - Portal venous system (SMV, splenic vein, portal vein and branches): Patent. - Hepatic veins: Patent. Pelvis: No mass, ascites or fluid collection. Bones/Soft Tissues: Fluid is noted within the right inguinal canal. No destructive skeletal lesion is present. Lower thorax: Please see the separate report for the concurrently obtained CT of the chest. Localizer images: No additional findings. IMPRESSION IMPRESSION: 1. Moderate lobular appearing wall thickening is noted involving a segment of small bowel in the right lower quadrant, this appears to have been present on the previous scan performed in August 2023, and is new from more remote previous CTs performed in June 2022 and earlier. There was a suggestion of FDG uptake in this area on the PET CT performed in February 2023. The appearance is nonspecific, given the persistence, chronic inflammatory bowel disease or low-grade neoplasm would both be considerations. 2. There is otherwise no CT evidence of recurrent or metastatic disease in the abdomen/pelvis. 3. 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 Transcribe Date/Time: Mar 04 2024 11:42A Dictated by: DANIELLE OLIVA MD This examination was interpreted and the report reviewed and electronically signed by: DANIELLE OLIVA MD on Mar 04 2024 12:05PM EST Thank you for allowing us to participate in the care of your patient. Should there be any questions regarding this interpretation, please call [phone]. If you are unable to reach us at the number above, please feel free to contact [facility] at [phone]. [facility] CT Abdomen and Pelvis W cont rast IVOrdered By: [facility] Provider on 03-04-[address] [facility] [address] Chest W contrast Petty IMPRESSION: No CT evidence of metastatic disease in the chest. Transcribe Date/Time: Mar 04 2024 11:43A Dictated by: DANIELLE OLIVA MD This examination was interpreted and the report reviewed and electronically signed by: DANIELLE OLIVA MD on Mar 04 2024 11:50AM EST Thank you for allowing us to participate in the care of your patient. Should there be any questions regarding this interpretation, please call [phone]. If you are unable to reach us at the number above, please feel free to contact [facility] at [phone]. 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 Technique: Spiral CT acquisition of the chest from the thoracic inlet to the upper abdomen following IV contrast. MQ: CTCW_6 Contrast: 100 mL Omnipaque [address] Radiation dose: Integrated Dose-length product (DLP) for this visit = 726 mGy*cm CT Dose Reduction Employed: Automated exposure control (AEC) Comparison: Multiple previous chest CTs, the most recent dated 09/03/2023 RESULT: Limitations: None. Lines, tubes, and devices: None. Lung parenchyma and airways: No suspicious appearing nodule identified. An incidental calcified granuloma is noted in the right middle lobe. Mild elevation of the right hemidiaphragm is noted, with unchanged minimal associated right basilar atelectasis. No new airspace consolidation. The central airways are patent. Pleural space: No pleural effusion. No pleural thickening. Lower neck, lymph nodes, and mediastinum: The imaged thyroid gland is normal. No lymphadenopathy in the supraclavicular, axillary, mediastinal, or hilar regions. Heart, pericardium, and thoracic vessels: The thoracic aorta and main pulmonary artery are normal in caliber. The cardiac chambers are normal in size. Moderate coronary artery atherosclerotic calcifications are noted, although the study is not optimized for coronary assessment. No pericardial effusion or thickening. Bones and soft tissues: No destructive bone lesion. Chest wall is unremarkable. Mild multilevel thoracic spine degenerative disease is noted. Upper abdomen: Please see the separate report for the concurrently obtained CT of the abdomen/pelvis. Localizer images: No additional findings. 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 Technique: Spiral CT acquisition of the chest from the thoracic inlet to the upper abdomen following IV contrast. MQ: CTCW_6 Contrast: 100 mL Omnipaque [address] Radiation dose: Integrated Dose-length product (DLP) for this visit = 726 mGy*cm CT Dose Reduction Employed: Automated exposure control (AEC) Comparison: Multiple previous chest CTs, the most recent dated 09/03/2023 RESULT: Limitations: None. Lines, tubes, and devices: None. Lung parenchyma and airways: No suspicious appearing nodule identified. An incidental calcified granuloma is noted in the right middle lobe. Mild elevation of the right hemidiaphragm is noted, with unchanged minimal associated right basilar atelectasis. No new airspace consolidation. The central airways are patent. Pleural space: No pleural effusion. No pleural thickening. Lower neck, lymph nodes, and mediastinum: The imaged thyroid gland is normal. No lymphadenopathy in the supraclavicular, axillary, mediastinal, or hilar regions. Heart, pericardium, and thoracic vessels: The thoracic aorta and main pulmonary artery are normal in caliber. The cardiac chambers are normal in size. Moderate coronary artery atherosclerotic calcifications are noted, although the study is not optimized for coronary assessment. No pericardial effusion or thickening. Bones and soft tissues: No destructive bone lesion. Chest wall is unremarkable. Mild multilevel thoracic spine degenerative disease is noted. Upper abdomen: Please see the separate report for the concurrently obtained CT of the abdomen/pelvis. Localizer images: No additional findings. IMPRESSION IMPRESSION: No CT evidence of metastatic disease in the chest. Transcribe Date/Time: Mar 04 2024 11:43A Dictated by: DANIELLE OLIVA MD This examination was interpreted and the report reviewed and electronically signed by: DANIELLE OLIVA MD on Mar 04 2024 11:50AM EST Thank you for allowing us to participate in the care of your patient. Should there be any questions regarding this interpretation, please call [phone]. If you are unable to reach us at the number above, please feel free to contact [facility] at [phone]. [facility] Cancer Ag 19-9 Qnon 03-04-20 Interpretation and review of laboratory results Normal [facility] Cobalamin (Vitamin B12) [Mas s/Vol]on 03-04-2024 Interpretation and review of laboratory results Normal [facility] FERRITINon 03-04-2024 Ferritin [Mass/Vol] 647.0 ng/mL High 30.3 - 565.7 ng/mL [facility] Ferritin [Mass/Vol]on 2023 Interpretation and review of laboratory results Abnormal [facility] Iron and Iron binding capaci ty panelon 03-04-2024 Iron [Mass/Vol] 42 ug/dL 41 - 186 ug/dL [facility] Iron binding capacity [Mass/Vol] [facility] Comment on above: Unable to calculate due to hemolysis. Iron/TIBC [Molar ratio] [facility] Comment on above: Unable to calculate due to hemolysis. [facility] VITAMIN B12on 03-04-2024 Cobalamin (Vitamin B12) [Mass/Vol] 979 pg/mL 232 - 1245 pg/mL [facility] Basophils Auto (Bld) [#/Vol] on 03-03-2024 Basophils (Bld) [#/Vol] Automated basophil count <0.11 [facility] Basophils/100 WBC Auto (Bld) on 03-03-2024 Basophils/100 WBC (Bld) Automated basophil % [facility] Blood manual differential co mment interpretation narrativeon 03-03-2024 Manual differential comment Evgeny (Bld) [Interp] Blood manual differential comment interpretation narrative [facility] CBC W Auto Differential pane l (Bld)on 03-03-2024 Basophils (Bld) [#/Vol] [facility] Basophils/100 WBC (Bld) 0.3 % [facility] Differential cell count method Nom (Bld) Auto [facility] Eosinophils (Bld) [#/Vol] 0.09 10*3/uL [facility] Eosinophils/100 WBC (Bld) 2.6 % [facility] Erythrocyte distribution width (RBC) [Ratio] 13.0 % 11.5 - 15.0 % [facility] Hematocrit (Bld) [Volume fraction] 30.8 % Low 39.0 - 51.0 % [facility] Hemoglobin (Bld) [Mass/Vol] 10.4 g/dL Low 13.0 - 17.0 g/dL [facility] Immature granulocytes (Bld) [#/Vol] [facility] Immature granulocytes/100 WBC (Bld) 0.3 % [facility] Interpretation and review of laboratory results Abnormal [facility] Lymphocytes (Bld) [#/Vol] 0.79 10*3/uL Low [facility] Lymphocytes/100 WBC (Bld) 22.4 % [facility] MCH (RBC) [Entitic mass] 35.5 pg High 26.0 - 34.0 pg [facility] MCHC (RBC) [Mass/Vol] 33.8 g/dL 30.5 - 36.0 g/dL [facility] MCV (RBC) [Entitic vol] 105.1 fL High 80.0 - 100.0 fL [facility] Monocytes (Bld) [#/Vol] 0.26 10*3/uL NINF [facility] Monocytes/100 WBC (Bld) 7.4 % [facility] Neutrophils (Bld) [#/Vol] 2.36 10*3/uL [facility] Neutrophils/100 WBC (Bld) 67.0 % [facility] Nucleated RBC (Bld) [#/Vol] NINF [facility] Nucleated RBC/100 WBC (Bld) [Ratio] 0.0 % /100 WBC [facility] Platelet mean volume (Bld) [Entitic vol] 8.8 fL Low 9.0 - 12.7 fL [facility] Platelets (Bld) [#/Vol] 284 10*3/uL [facility] RBC (Bld) [#/Vol] 2.93 10*6/uL Low 4.20 - 6.00 m/uL [facility] WBC (Bld) [#/Vol] 3.52 10*3/uL Low [facility] Basophils (Bld) [#/Vol] 10*3/uL Normal <0.11 [facility] Comment on above: Order Comment: Speci men Type: BLOOD SPECIMEN Ordering Facility: [facility] Address: [address] [place] [address] Performed By: #### 2 4108-3 #### [facility] CLIA [id number] [address] [place] [address] [place] Basophils/100 WBC (Bld) 0.3 % Normal [facility] Comment on above: Order Comment: Speci men Type: BLOOD SPECIMEN Ordering Facility: [facility] Address: [address] [place] [address] Performed By: #### 2 4108-3 #### [facility] CLIA [id number] [address] [place] [address] [place] Differential cell count method Nom (Bld) Auto Normal [facility] Comment on above: Order Comment: Speci men Type: BLOOD SPECIMEN Ordering Facility: [facility] Address: [address] [place] [address] Performed By: #### 2 4108-3 #### [facility] CLIA [id number] [address] [place] [address] [place] Eosinophils (Bld) [#/Vol] 0.09 10*3/uL Normal <0.46 [facility] Comment on above: Order Comment: Speci men Type: BLOOD SPECIMEN Ordering Facility: [facility] Address: [address] [place] [address] Performed By: #### 2 4108-3 #### [facility] CLIA [id number] [address] [place] [address] [place] Eosinophils/100 WBC (Bld) 2.6 % Normal [facility] Comment on above: Order Comment: Speci men Type: BLOOD SPECIMEN Ordering Facility: [facility] Address: [address] [place] [address] Performed By: #### 2 4108-3 #### [facility] CLIA [id number] [address] [place] [address] [place] Erythrocyte distribution width (RBC) [Ratio] 13.0 % Normal 11.5-15.0 [facility] Comment on above: Order Comment: Speci men Type: BLOOD SPECIMEN Ordering Facility: [facility] Address: [address] [place] [address] Performed By: #### 2 4108-3 #### [facility] CLIA [id number] [address] [place] [address] [place] Hematocrit (Bld) [Volume fraction] 30.8 % Low 39.0-51.0 [facility] Comment on above: Order Comment: Speci men Type: BLOOD SPECIMEN Ordering Facility: [facility] Address: [address] [place] [address] Performed By: #### 2 4108-3 #### [facility] CLIA [id number] [address] [place] [address] [place] Hemoglobin (Bld) [Mass/Vol] 10.4 g/dL Low 13.0-17.0 [facility] Comment on above: Order Comment: Speci men Type: BLOOD SPECIMEN Ordering Facility: [facility] Address: [address] [place] [address] Performed By: #### 2 4108-3 #### [facility] CLIA [id number] [address] [place] [address] [place] Immature granulocytes (Bld) [#/Vol] 10*3/uL Normal <0.10 [facility] Comment on above: Order Comment: Speci men Type: BLOOD SPECIMEN Ordering Facility: [facility] Address: [address] [place] [address] Performed By: #### 2 4108-3 #### [facility] CLIA [id number] [address] [place] [address] [place] Immature granulocytes/100 WBC (Bld) 0.3 % Normal [facility] Comment on above: Order Comment: Speci men Type: BLOOD SPECIMEN Ordering Facility: [facility] Address: [address] [place] [address] Performed By: #### 2 4108-3 #### [facility] CLIA [id number] [address] [place] [address] [place] Lymphocytes (Bld) [#/Vol] 0.79 10*3/uL Low 1.00-4.00 [facility] Comment on above: Order Comment: Speci men Type: BLOOD SPECIMEN Ordering Facility: [facility] Address: [address] [place] [address] Performed By: #### 2 4108-3 #### [facility] CLIA [id number] [address] [place] [address] [place] Lymphocytes/100 WBC (Bld) 22.4 % Normal [facility] Comment on above: Order Comment: Speci men Type: BLOOD SPECIMEN Ordering Facility: [facility] Address: [address] [place] [address] Performed By: #### 2 4108-3 #### [facility] CLIA [id number] [address] [place] [address] [place] MCH (RBC) [Entitic mass] 35.5 pg High 26.0-34.0 [facility] Comment on above: Order Comment: Speci men Type: BLOOD SPECIMEN Ordering Facility: [facility] Address: [address] [place] [address] Performed By: #### 2 4108-3 #### [facility] CLIA [id number] [address] [place] [address] [place] MCHC (RBC) [Mass/Vol] 33.8 g/dL Normal 30.5-36.0 [facility] Comment on above: Order Comment: Speci men Type: BLOOD SPECIMEN Ordering Facility: [facility] Address: [address] [place] [address] Performed By: #### 2 4108-3 #### [facility] CLIA [id number] [address] [place] [address] [place] MCV (RBC) [Entitic vol] 105.1 fL High 80.0-100.0 [facility] Comment on above: Order Comment: Speci men Type: BLOOD SPECIMEN Ordering Facility: [facility] Address: [address] [place] [address] Performed By: #### 2 4108-3 #### [facility] CLIA [id number] [address] [place] [address] [place] Monocytes (Bld) [#/Vol] 0.26 10*3/uL Normal <0.87 [facility] Comment on above: Order Comment: Speci men Type: BLOOD SPECIMEN Ordering Facility: [facility] Address: [address] [place] [address] Performed By: #### 2 4108-3 #### [facility] CLIA [id number] [address] [id number] [address] [place] Monocytes/100 WBC (Bld) 7.4 % Normal [facility] Comment on above: Order Comment: Speci men Type: BLOOD SPECIMEN Ordering Facility: [facility] Address: [address] [place] [address] Performed By: #### 2 4108-3 #### [facility] CLIA [id number] [address] [place] [address] [place] Neutrophils (Bld) [#/Vol] 2.36 10*3/uL Normal 1.45-7.50 [facility] Comment on above: Order Comment: Speci men Type: BLOOD SPECIMEN Ordering Facility: [facility] Address: [address] [place] [address] Performed By: #### 2 4108-3 #### [facility] CLIA [id number] [address] [place] [address] [place] Neutrophils/100 WBC (Bld) 67.0 % Normal [facility] Comment on above: Order Comment: Speci men Type: BLOOD SPECIMEN Ordering Facility: [facility] Address: [address] [place] [address] Performed By: #### 2 4108-3 #### [facility] CLIA [id number] [address] [place] [address] [place] Nucleated RBC (Bld) [#/Vol] 10*3/uL Normal <0.01 [facility] Comment on above: Order Comment: Speci men Type: BLOOD SPECIMEN Ordering Facility: [facility] Address: [address] [place] [address] Performed By: #### 2 4108-3 #### [facility] CLIA [id number] [address] [place] [address] [place] Nucleated RBC/100 WBC (Bld) [Ratio] 0.0 /100 WBC Normal [facility] Comment on above: Order Comment: Speci men Type: BLOOD SPECIMEN Ordering Facility: [facility] Address: [address] [place] [address] Performed By: #### 2 4108-3 #### [facility] CLIA [id number] [address] [place] [address] [place] Platelet mean volume (Bld) [Entitic vol] 8.8 fL Low 9.0-12.7 [facility] Comment on above: Order Comment: Speci men Type: BLOOD SPECIMEN Ordering Facility: [facility] Address: [address] [place] [address] Performed By: #### 2 4108-3 #### [facility] CLIA [id number] [address] [place] [address] [place] Platelets (Bld) [#/Vol] 284 10*3/uL Normal 150-400 [facility] Comment on above: Order Comment: Speci men Type: BLOOD SPECIMEN Ordering Facility: [facility] Address: [address] [place] [address] Performed By: #### 2 4108-3 #### [facility] CLIA [id number] [address] [place] [address] [place] RBC (Bld) [#/Vol] 2.93 10*6/uL Low 4.20-6.00 [facility] Comment on above: Order Comment: Speci men Type: BLOOD SPECIMEN Ordering Facility: [facility] Address: [address] [place] [address] Performed By: #### 2 4108-3 #### [facility] CLIA [id number] [address] [place] [address] [place] WBC (Bld) [#/Vol] 3.52 10*3/uL Low 3.70-11.00 [facility] Comment on above: Order Comment: Speci men Type: BLOOD SPECIMEN Ordering Facility: [facility] Address: [address] [place] [address] Performed By: #### 2 4108-3 #### [facility] CLIA [id number] [id number] [facility] CNNURSEon 03-03-2024 CNNURSE Nurse Visit (HEMASA) ROCIO JACKSON ([id number]) 1955 M Date Time Provider Department 03/03/24 2:00 PM [facility]EL[facility] NURSE [place] POOL During your visit today, we recorded the following information about you: Pulse Respiration Blood pressure 80/minute 20/minute 95/66 Livier Seay MA 03/03/2024 12:57 PM Signed Patient Identification confirmed: yes. Injection given and documented on AUG per provider order. 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 - enteric contrast (will be provided with radiology test) For CT CHESTABD/PEL W IVCON Routine order Administer, As Directed One Time Only, via Oral, Rectal, both Oral and Rectal, Enteric Tube, Stoma or Indwelling Catheter, Enteric Contrast as designated per enteric contrast guidelines - metoclopramide HCl (REGLAN) 10 mg tablet Take 1 tablet by mouth three times a day with meals. - rsykve-mjatswzs-dhtpwzr (ZENPEP) 25,000-79,000- 105,000 unit delayed release capsule Take 2 capsules by mouth three times a day with meals. - kulohn-aefdonbu-ojrakqk (CREON 24) 24,000-76,000 -120,000 unit delayed release capsule Take 2 capsules by mouth three times a day with meals. - Cholestyramine-Aspartame (CHOLESTYRAMINE LIGHT) 4 gram powder Take 4 g by mouth three times daily with meals. - glipiZIDE (GLUCOTROL) 5 mg tablet Take 5 mg by mouth twice daily before meals. - JARDIANCE 25 mg tablet - ELIQUIS 2.5 mg tab tab(s) Take 2.5 mg by mouth twice daily. - venlafaxine ER (EFFEXOR XR) 75 mg 24 hr capsule TAKE 1 CAPSULE BY MOUTH ONE TIME A DAY - metoprolol succinate ER (TOPROL XL) 25 mg 24 hr tablet Take 25 mg by mouth once daily. - ALPRAZolam (XANAX) 0.25 mg tablet Take 0.25 mg by mouth as needed. - FLUoxetine HCl (PROZAC) 40 mg capsule Take 40 mg by mouth twice daily. - acetaminophen (TYLENOL) 650 mg/20.3 mL soln Take 20.3 mL by mouth every 6 hours as needed. - atorvastatin (LIPITOR) 40 mg tablet Take 40 mg by mouth daily at bedtime. - nitroglycerin sublingual (NITROSTAT) 0.4 mg SL tablet Dissolve 0.4 mg under the tongue every 5 minutes as needed. 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 Injection given and documented on AUG per provider order. Livier Seay MA Prescriptions ordered this encounter Disp Refills Start End CYANOCOBALAMIN (VIT B-12) 1,000 MCG/* 03/03/2024 03/03/2024 Route: INTRAMUSCULA Encounter Status:Closed by LIVIER SEAY on 03/03/24 Normal [facility] CT ABD/PEL W IVCONon 024 CT ABD/PEL W IVCON * * *Final Report* * * DATE OF EXAM: Mar 03 2024 2:36PM [facility] 0530 - CT ABD/PEL W IVCON / PROCEDURE REASON: multiple diagnoses * * * * Physician Interpretation * * * * RESULT: EXAMINATION: CT ABDOMEN AND PELVIS WITH IV CONTRAST CLINICAL HISTORY: Cancer of ampulla of Vater. Anemia. TECHNIQUE: CT of the abdomen and pelvis was performed using standard technique, scanning from just above the dome of the diaphragm to the symphysis pubis. MQ: CTAP_3 Contrast: IV: 100 ml of Omnipaque 350 Oral: 500 ml of Omni 240 10-25ml diluted with water CT Radiation dose: Integrated Dose-length product (DLP) for this visit = 726 mGy*cm. CT Dose Reduction Employed: Automated exposure control (AEC) COMPARISON: Multiple previous CTs of the abdomen/pelvis, the most recent dated 09/03/2023. PET/CT dated 03/11/2023. RESULT: Mildly limited exam due to motion artifact. Liver: Unremarkable. No mass. Biliary: Expected pneumobilia again present status post hepaticojejunostomy. No biliary ductal dilation. Surgically absent gallbladder. Spleen: No mass. No splenomegaly. 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 There is no pancreatic ductal dilation. There is no CT evidence of a pancreatic mass. Adrenals: No mass. Kidneys: Unremarkable within limitations of motion artifact. No mass or collecting system dilation. GI tract: There is moderate lobular appearing wall thickening involving a segment of small bowel in the right lower quadrant, seen for example on series 3 images 90-100. This appears to have been present on the previous scan performed in August 2023, and there is a suggestion of FDG uptake in this area in February 2023. This finding is not seen on more remote CTs performed in June 2022 or January 2022. No additional segments of small or large bowel wall thickening are seen. There is no small or large bowel dilation. Lymph nodes: No abdominal or pelvic lymphadenopathy. Mesentery/Peritoneum: No ascites or mass. Retroperitoneum: No mass. Vasculature: - Abdominal aorta and iliac arteries: Moderate calcified atherosclerotic disease, no aneurysm. - Celiac and SMA: Patent - Portal venous system (SMV, splenic vein, portal vein and branches): Patent. - Hepatic veins: Patent. Pelvis: No mass, ascites or fluid collection. Bones/Soft Tissues: Fluid is noted within the right inguinal canal. No destructive skeletal lesion is present. Lower thorax: Please see the separate report for the concurrently obtained CT of the chest. Localizer images: No additional findings. IMPRESSION: 1. Moderate lobular appearing wall thickening is noted involving a segment of small bowel in the right lower quadrant, this appears to have been present on the previous scan performed in August 2023, and is new from more remote previous CTs performed in June 2022 and earlier. There was a suggestion of FDG uptake in this area on the PET CT performed in February 2023. The appearance is nonspecific, given the persistence, chronic inflammatory bowel disease or low-grade neoplasm would both be considerations. 2. There is otherwise no CT evidence of recurrent or metastatic disease in the abdomen/pelvis. 3. 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 Transcribe Date/Time: Mar 04 2024 11:42A Dictated by: DANIELLE OLIVA MD This examination was interpreted and the report reviewed and electronically signed by: DANIELLE OLIVA MD on Mar 04 2024 12:05PM EST Thank you for allowing us to participate in the care of your patient. Should there be any questions regarding this interpretation, please call [phone]. If you are unable to reach us at the number above, please feel free to contact [facility] at [phone]. [id number] Normal [facility] CT CHEST W IVCONon 4 CT CHEST W IVCON * * *Final Report* * * DATE OF EXAM: Mar 03 2024 2:36PM [facility] 0539 - CT CHEST W IVCON / PROCEDURE REASON: multiple diagnoses * * * * Physician Interpretation * * * * RESULT: EXAMINATION: CHEST CT WITH CONTRAST CLINICAL HISTORY: Cancer of ampulla of Vater. Anemia. Technique: Spiral CT acquisition of the chest from the thoracic inlet to the upper abdomen following IV contrast. MQ: CTCW_6 Contrast: 100 mL Omnipaque [address] Radiation dose: Integrated Dose-length product (DLP) for this visit = 726 mGy*cm CT Dose Reduction Employed: Automated exposure control (AEC) Comparison: Multiple previous chest CTs, the most recent dated 09/03/2023 RESULT: Limitations: None. Lines, tubes, and devices: None. Lung parenchyma and airways: No suspicious appearing nodule identified. An incidental calcified granuloma is noted in the right middle lobe. Mild elevation of the right hemidiaphragm is noted, with unchanged minimal associated right basilar atelectasis. No new airspace consolidation. The central airways are patent. Pleural space: No pleural effusion. No pleural thickening. Lower neck, lymph nodes, and mediastinum: The imaged thyroid gland is normal. No lymphadenopathy in the supraclavicular, axillary, mediastinal, or hilar regions. Heart, pericardium, and thoracic vessels: The thoracic aorta and main pulmonary artery are normal in caliber. The cardiac chambers are normal in size. Moderate coronary artery atherosclerotic calcifications are noted, although the study is not optimized for coronary assessment. No pericardial effusion or thickening. Bones and soft tissues: No destructive bone lesion. Chest wall is unremarkable. Mild multilevel thoracic spine degenerative disease is noted. Upper abdomen: Please see the separate report for the concurrently obtained CT of the abdomen/pelvis. Localizer images: No additional findings. IMPRESSION: No CT evidence of metastatic disease in the chest. Transcribe Date/Time: Mar 04 2024 11:43A Dictated by: DANIELLE OLIVA MD This examination was interpreted and the report reviewed and electronically signed by: DANIELLE OLIVA MD on Mar 04 2024 11:50AM EST Thank you for allowing us to participate in the care of your patient. Should there be any questions regarding this interpretation, please call [phone]. If you are unable to reach us at the number above, please feel free to contact [facility] at [phone]. [id number] Normal [facility] Cancer Ag19-9 SerPl-aCncon 0 03-03-2024 Cancer Ag 19-9 Qn 18.0 [arb'U]/mL Normal <36.0 [facility] Comment on above: Order Comment: Speci men Type: BLOOD SPECIMENOrdering Facility: [facility] Address: [address] [place] [address] Result Comment: [facility] er antigen 19-9 test is used as an aid in monitoring response to treatment or recurrence in patients with established pancreatic, hepatobiliary, or gastrointestinal malignancies. Clinical correlation is required. The CA 19-9 Antigen test was performed using the [employer] DXI paramagnetic particle chemiluminescent immunoassay method. Results obtained with different assay methods or kits cannot be used interchangeably. Performed By: #### 2 4108-3 ####[facility] [id number] [place] [address] [place] Comprehensive metabolic 2000 panelOrdered By: Olga Cornejo on 03-03-2024 Albumin [Mass/Vol] 2.9 g/dL Low 3.9 - 4.9 g/dL [facility] ALP [Catalytic activity/Vol] 181 U/L High 38 - 113 U/L [facility] ALT [Catalytic activity/Vol] 17 U/L 10 - 54 U/L [facility] Anion gap [Moles/Vol] 7 mmol/L Low 8 - 15 mmol/L [facility] AST [Catalytic activity/Vol] 18 U/L 14 - 40 U/L [facility] Bilirubin [Mass/Vol] 0.4 mg/dL 0.2 - 1 .3 mg/dL [facility] Calcium [Mass/Vol] 8.2 mg/dL Low 8.5 - 10. 2 mg/dL [facility] Chloride [Moles/Vol] 109 mmol/L High 98 - 10 7 mmol/L [facility] CO2 [Moles/Vol] 24 mmol/L 22 - 30 mmol/L [facility] Creatinine [Mass/Vol] 0.62 mg/dL Low 0.73 - 1.22 mg/dL [facility] GFR/1.73 sq M.predicted among non-blacks MDRD (S/P/Bld) [Vol rate/Area] 105 mL/min/{1.73_m2} - PINF [facility] Comment on above: Estimated Glomerular Filtration Rate (eGFR) is calculated using the 2020 CKD-EPI creatinine equation. This equation utilizes serum creatinine, sex, and age as parameters. The creatinine assay has traceable calibration to isotope dilution-mass spectrometry. Refer to KDIGO guidelines for clinical interpretation. In patients with unstable renal function, e.g. those with acute kidney injury, the eGFR may not accurately reflect actual GFR. Glucose [Mass/Vol] 87 mg/dL 74 - 99 mg/dL [facility] Comment on above: The [place] Di[employer] Association (ADA) provides guidance for cutoff values for fasting glucose and random glucose. The ADA defines fasting as no caloric intake for at least 8 hours. Fasting plasma glucose results between 100 to 125 mg/dL indicate increased risk for diabetes (prediabetes). Fasting plasma glucose results greater than or equal to 126 mg/dL meet the criteria for diagnosis of diabetes. In the absence of unequivocal hyperglycemia, results should be confirmed by repeat testing. In a patient with classic symptoms of hyperglycemia or hyperglycemic crisis, random plasma glucose results greater than or equal to 200 mg/dL meet the criteria for diagnosis of diabetes. Reference: Standards of Medical Care in Diabetes 2016, [place] [employer]. Diabetes Care. 2016.39(Suppl 1). Interpretation and review of laboratory results Abnormal [facility] Potassium [Moles/Vol] 4.4 mmol/L 3.7 - 5.1 mmol/L [facility] Protein [Mass/Vol] 5.4 g/dL Low 6.3 - 8.0 g/dL [facility] Sodium [Moles/Vol] 140 mmol/L 136 - 144 mmol/L [facility] Urea nitrogen [Mass/Vol] 22 mg/dL 9 - 24 mg/dL [facility] Comprehensive metabolic 2000 panelon 03-03-2024 Albumin [Mass/Vol] 2.9 g/dL Low 3.9-4.9 [facility] Comment on above: Order Comment: Speci men Type: BLOOD SPECIMEN Ordering Facility: [facility] Address: [facility] [address] Performed By: #### 2 4108-3 #### [facility] CLIA [id number] [address] [place] [address] [place] ALP [Catalytic activity/Vol] 181 U/L High 38-113 [facility] Comment on above: Order Comment: Speci men Type: BLOOD SPECIMEN Ordering Facility: [facility] Address: [address] [place] [address] Performed By: #### 2 4108-3 #### [facility] CLIA [id number] [address] [place] [address] [place] ALT [Catalytic activity/Vol] 17 U/L Normal 10-54 [facility] Comment on above: Order Comment: Speci men Type: BLOOD SPECIMEN Ordering Facility: [facility] Address: [address] [place] [address] Performed By: #### 2 4108-3 #### [facility] CLIA [id number] [address] [place] [address] [place] Anion gap [Moles/Vol] 7 mmol/L Low 8-15 [facility] Comment on above: Order Comment: Speci men Type: BLOOD SPECIMEN Ordering Facility: [facility] Address: [address] [place] [address] Performed By: #### 2 4108-3 #### [facility] CLIA [id number] [address] [place] [address] [place] AST [Catalytic activity/Vol] 18 U/L Normal 14-40 [facility] Comment on above: Order Comment: Speci men Type: BLOOD SPECIMEN Ordering Facility: [facility] Address: [address] [place] [address] Performed By: #### 2 4108-3 #### [facility] CLIA [id number] [address] [place] [address] [place] Bilirubin [Mass/Vol] 0.4 mg/dL Normal 0.2-1.3 [facility] Comment on above: Order Comment: Speci men Type: BLOOD SPECIMEN Ordering Facility: [facility] Address: [address] [id number] Performed By: #### 2 4108-3 #### [facility] CLIA [id number] [address] [id number] [place] Calcium [Mass/Vol] 8.2 mg/dL Low 8.5-10.2 [facility] Comment on above: Order Comment: Speci men Type: BLOOD SPECIMEN Ordering Facility: [facility] Address: [address] [place], [place] [address] Performed By: #### 2 4108-3 #### [facility] CLIA [id number] [address] [place] [address] [place] Chloride [Moles/Vol] 109 mmol/L High 98-107 [facility] Comment on above: Order Comment: Speci men Type: BLOOD SPECIMEN Ordering Facility: [facility] Address: [address] [place], [place] [address] Performed By: #### 2 4108-3 #### [facility] CLIA [id number] [address] [place] [address] [place] CO2 [Moles/Vol] 24 mmol/L Normal 22-30 [facility] Comment on above: Order Comment: Speci men Type: BLOOD SPECIMEN Ordering Facility: [facility] Address: [address] [id number] Performed By: #### 2 4108-3 #### [facility] CLIA [id number] [address] [place], [place] [address] [place] Creatinine [Mass/Vol] 0.62 mg/dL Low 0.73-1.22 [facility] Comment on above: Order Comment: Speci men Type: BLOOD SPECIMEN Ordering Facility: [facility] Address: [address] [id number] Performed By: #### 2 4108-3 #### [facility] CLIA [id number] [address] [place] [address] [place] Creatinine and Glomerular filtration rate.predicted panel (S/P/Bld) 105 mL/min/1.73m??? Normal >=60 [facility] Comment on above: Order Comment: Frank real Type: BLOOD SPECIMEN Ordering Facility: [facility] Address: [address] [place] [address] Result Comment: Megan mated Glomerular Filtration Rate [...] reflect actual GFR. Performed By: #### 2 4108-3 #### [facility] CLIA [id number] [address] [place] [address] [place] Glucose [Mass/Vol] 87 mg/dL Normal 74-99 [facility] Comment on above: Order Comment: Frank real Type: BLOOD SPECIMEN Ordering Facility: [facility] Address: [address] [place] [address] Result Comment: The [place] Diabetes [employer] (ADA) provides guidance for cutoff values for fasting glucose and random glucose. The ADA defines fasting as no caloric intake for at least 8 hours. Fasting plasma glucose results between 100 to 125 mg/dL indicate increased risk for diabetes (prediabetes). Fasting plasma glucose results greater than or equal to 126 mg/dL meet the criteria for diagnosis of diabetes. In the absence of unequivocal hyperglycemia, results should be confirmed by repeat testing. In a patient with classic symptoms of hyperglycemia or hyperglycemic crisis, random plasma glucose results greater than or equal to 200 mg/dL meet the criteria for diagnosis of diabetes. Reference: Standards of Medical Care in Diabetes 2016, [place] [employer]. Diabetes Care. 2016.39(Suppl 1). Performed By: #### 2 4108-3 #### [facility] CLIA [id number] [address] [place] [address] [place] Potassium [Moles/Vol] 4.4 mmol/L Normal 3.7-5.1 [facility] Comment on above: Order Comment: Speci men Type: BLOOD SPECIMEN Ordering Facility: [facility] Address: [address] [place] [address] Performed By: #### 2 4108-3 #### [facility] CLIA [id number] [address] [place] [address] [place] Protein [Mass/Vol] 5.4 g/dL Low 6.3-8.0 [facility] Comment on above: Order Comment: Speci men Type: BLOOD SPECIMEN Ordering Facility: [facility] Address: [address] [place] [address] Performed By: #### 2 4108-3 #### [facility] CLIA [id number] [address] [place] [address] [place] Sodium [Moles/Vol] 140 mmol/L Normal 136-144 [facility] Comment on above: Order Comment: Speci men Type: BLOOD SPECIMEN [facility]: [facility] [facility] Address: [address] [place] [address] Performed By: #### 2 4108-3 #### [facility] CLIA [id number] [address] [place] [address] [place] Urea nitrogen [Mass/Vol] 22 mg/dL Normal 9-24 [facility] Comment on above: Order Comment: Speci men Type: BLOOD SPECIMEN Ordering Facility: [facility] Address: [address] [place] [address] Performed By: #### 2 4108-3 #### [facility] CLIA [id number] [address] [place] [address] [place] Eosinophils/100 WBC Auto (Bl d)on 03-03-2024 Eosinophils/100 WBC (Bld) Automated eosinophil % [facility] Erythrocyte distribution wid th Auto (RBC) [Ratio]on 03-03-2024 Erythrocyte distribution width (RBC) [Ratio] Erythrocyte distribution width [Ratio] by Automated count 11.5-15.0 [facility] Ferritin SerPl-mCncon 2023 Ferritin [Mass/Vol] 647.0 ng/mL High 30.3-565.7 [facility] Comment on above: Order Comment: Speci men Type: BLOOD SPECIMENOrdering Facility: [facility] Address: [address] [place] [address] Performed By: #### 5 0190-8, 2132-02, 2275-09 ####[facility]IA [id number] [place] [address] [place] Hematocrit Auto (Bld) [Volum e fraction]on 03-03-2024 Hematocrit (Bld) [Volume fraction] Hematocrit [Volume Fraction] of Blood by Automated count Low 39.0-51.0 [facility] Hemoglobin [Mass/volume] in Bloodon 03-03-2024 Hemoglobin (Bld) [Mass/Vol] Hemoglobin [Mass/volume] in Blood Low 13.0-17.0 [facility] Iron and Iron binding capaci ty panelon 03-03-2024 Iron [Mass/Vol] 42 ug/dL Normal 41-186 [facility] Comment on above: Order Comment: Speci men Type: BLOOD SPECIMENOrdering Facility: [facility] Address: [address] [place] [address] Performed By: #### 5 0190-8, 2132-02, 2275-09 ####[facility] [id number] [place] [address] [place] Iron binding capacity [Mass/Vol] Normal [facility] Comment on above: Order Comment: Speci men Type: BLOOD SPECIMENOrdering Facility: [facility] Address: [address] [place] [address] Result Comment: Unab le to calculate due to hemolysis. Performed By: #### 5 0190-8, 2132-02, 2275-09 ####[facility] [id number] [place] [address] [place] Iron/TIBC [Molar ratio] Normal [facility] Comment on above: Order Comment: Speci men Type: BLOOD SPECIMENOrdering Facility: [facility] Address: [address] [place] [address] Result Comment: Unab le to calculate due to hemolysis. Performed By: #### 5 0190-8, 2132-9, 2276-4 ####[facility] [id number] [place] [address] [place] Iron binding capacity [Mass/ volume] in Serum or Plasmaon 03-03-2024 Iron binding capacity [Mass/Vol] Iron binding capacity [Mass/volume] in Serum or Plasma [facility] Comment on above: Unable to calculate due to hemolysis. Iron saturation [Mass Fracti on] in Serum or Plasmaon 03-03-2024 Iron saturation [Mass fraction] Iron saturation [Mass Fraction] in Serum or Plasma [facility] Comment on above: Unable to calculate due to hemolysis. Laboratory - Chemistry and C hemistry - challengeon 03-03-2024 Albumin [Mass/Vol] 2.9 g/dL Low 3.9-4.9 [facility] ALP [Catalytic activity/Vol] 181 U/L High 38-113 [facility] ALT [Catalytic activity/Vol] 17 U/L 10-54 [facility] AST [Catalytic activity/Vol] 18 U/L 14-40 [facility] Bilirubin [Mass/Vol] 0.4 mg/dL 0.2-1.3 [facility] Calcium [Mass/Vol] 8.2 mg/dL Low 8.5-10.2 [facility] Chloride [Moles/Vol] 109 mmol/L High 98-107 [facility] CO2 [Moles/Vol] 24 mmol/L 22-30 [facility] Cobalamin (Vitamin B12) [Mass/Vol] 979 pg/mL 232-1245 [facility] Creatinine [Mass/Vol] 0.62 mg/dL Low 0.73-1.22 [facility] Ferritin [Mass/Vol] 647.0 ng/mL High 30.3-565.7 [facility] Glucose [Mass/Vol] 87 mg/dL 74-99 [facility] Comment on above: The [place] Diab[employer] Association (ADA) provides guidance for cutoff values [...] Standards of Medical Care in Diabetes 2016, [place] [employer]. Diabetes Care. 2016.39(Suppl 1). Iron [Mass/Vol] 42 ug/dL 41-186 [facility] Potassium [Moles/Vol] 4.4 mmol/L 3.7-5.1 [facility] Sodium [Moles/Vol] 140 mmol/L 136-144 [facility] Urea nitrogen [Mass/Vol] 22 mg/dL 9-24 [facility] Laboratory - Hematology and Cell countson 03-03-2024 Eosinophils (Bld) [#/Vol] 0.09 10*3/uL <0.46 [facility] Immature granulocytes/100 WBC (Bld) 0.3 % [facility] Leukocytes [#/volume] correc missael for nucleated erythrocytes in Blood by Automated counon 03-03-2024 WBC corrected for nucl RBC Auto (Bld) [#/Vol] Leukocytes [#/volume] corrected for nucleated erythrocytes in Blood by Automated coun Low 3.70-11.00 [facility] Lymphocytes Auto (Bld) [#/Vo l]on 03-03-2024 Lymphocytes (Bld) [#/Vol] Lymphocytes [#/volume] in Blood by Automated count Low 1.00-4.00 [facility] Lymphocytes/100 WBC Auto (Bl d)on 03-03-2024 Lymphocytes/100 WBC (Bld) Lymphocytes/100 leukocytes in Blood by Automated count [facility] MCH Auto (RBC) [Entitic mass ]on 03-03-2024 MCH (RBC) [Entitic mass] MCH [Entitic mass] by Automated count High 26.0-34.0 [facility] MCHC Auto (RBC) [Mass/Vol]on 03-03-2024 MCHC (RBC) [Mass/Vol] MCHC [Mass/volume] by Automated count 30.5-36.0 [facility] MCV Auto (RBC) [Entitic vol] on 03-03-2024 MCV (RBC) [Entitic vol] MCV [Entitic volume] by Automated count High 80.0-100.0 [facility] Monocytes Auto (Bld) [#/Vol] on 03-03-2024 Monocytes (Bld) [#/Vol] Automated blood monocyte count <0.87 [facility] Monocytes/100 WBC Auto (Bld) on 03-03-2024 Monocytes/100 WBC (Bld) Automated monocyte % [facility] Neutrophils Auto (Bld) [#/Vo l]on 03-03-2024 Neutrophils (Bld) [#/Vol] Neutrophils [#/volume] in Blood by Automated count 1.45-7.50 [facility] Neutrophils/100 WBC Auto (Bl d)on 03-03-2024 Neutrophils/100 WBC (Bld) Automated neutrophil % [facility] No Panel Informationon 03-03 Estimated GFR (CKD-EPI) 105 mL/min/1.73m??? >=60 [facility] Comment on above: Estimated Glomerular Filtration Rate (eGFR) is calculated using the 2020 CKD-EPI creatinine equation. This equation utilizes serum creatinine, sex, and age as parameters. The creatinine assay has traceable calibration to isotope dilution-mass spectrometry. Refer to KDIGO guidelines for clinical interpretation. In patients with unstable renal function, e.g. those with acute kidney injury, the eGFR may not accurately reflect actual GFR. Immature Granulocyte # (Auto) <0.03 k/uL <0.10 [facility] Radiology Study observation (narrative) [facility] Nucleated RBC Auto (Bld) [#/ Vol]on 03-03-2024 Nucleated RBC (Bld) [#/Vol] Nucleated erythrocytes [#/volume] in Blood by Automated count <0.01 [facility] Nucleated erythrocytes [Pres ence] in Blood by Automated counton 03-03-2024 Nucleated RBC Auto Ql (Bld) Nucleated erythrocytes [Presence] in Blood by Automated count [facility] Platelet mean volume Auto (B ld) [Entitic vol]on 03-03-2024 Platelet mean volume (Bld) [Entitic vol] Platelet mean volume [Entitic volume] in Blood by Automated count Low 9.0-12.7 [facility] Platelets Auto (Bld) [#/Vol] on 03-03-2024 Platelets (Bld) [#/Vol] Platelets [#/volume] in Blood by Automated count 150-400 [facility] Protein [Mass/volume] in Ser um or Plasmaon 03-03-2024 Protein [Mass/Vol] Protein [Mass/volume ] in Serum or Plasma Low 6.3-8.0 [facility] RBC Auto (Bld) [#/Vol]on RBC (Bld) [#/Vol] Erythrocytes [#/volu me] in Blood by Automated count Low 4.20-6.00 [facility] Serum or plasma anion gap de terminationon 03-03-2024 Anion gap [Moles/Vol] Serum or plasma an ion gap determination Low 8-15 [facility] Serum or plasma cancer antig en 19-9 measurement (units/volume)on 03-03-2024 Cancer Ag 19-9 Qn Serum or plasma canc er antigen 19-9 measurement (units/volume) <36.0 [facility] Comment on above: Cancer antigen 19-9 test is used as an aid in monitoring response to treatment or recurrence in patients with established pancreatic, hepatobiliary, or gastrointestinal malignancies. Clinical correlation is required.The CA 19-9 Antigen test was performed using the [employer] Un[employer] DXI paramagnetic particle chemiluminescent immunoassay method. Results obtained with different assay methods or kits cannot be used interchangeably. Vit B12 SerPl-mCncon 024 Cobalamin (Vitamin B12) [Mass/Vol] 979 pg/mL Normal 232-1245 [facility] Comment on above: Order Comment: Speci men Type: BLOOD SPECIMENOrdering Facility: [facility] Address: [address] [place] [address] Performed By: #### 5 0190-8, 2132-9, 2276-4 ####[facility] [id number] [address] [facility] CNNURSEon 01-29-2024 CNNURSE Nurse Visit (HEMASA) ROCIO JACKSON ([id number]) 1955 M Date Time Provider Department 01/29/24 2:30 PM [facility] N[facility]SE [place] [facility] During your visit today, we recorded the following information about you: Temperature Pulse Respiration Blood pressure 97.7 degrees 108/minute 16/minute 99/65 Lillian Tucker MA 01/29/2024 3:18 PM Signed Patient Identification confirmed: yes. Injection given and documented on AUG per provider order. 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 - enteric contrast (will be provided with radiology test) For CT CHESTABD/PEL W IVCON Routine order Administer, As Directed One Time Only, via Oral, Rectal, both Oral and Rectal, Enteric Tube, Stoma or Indwelling Catheter, Enteric Contrast as designated per enteric contrast guidelines - metoclopramide HCl (REGLAN) 10 mg tablet Take 1 tablet by mouth three times a day with meals. - mxzxbd-zepkbirb-twpvurt (ZENPEP) 25,000-79,000- 105,000 unit delayed release capsule Take 2 capsules by mouth three times a day with meals. - ipmrxo-mqonuqaj-yeuotwy (CREON 24) 24,000-76,000 -120,000 unit delayed release capsule Take 2 capsules by mouth three times a day with meals. - folic acid 1 mg tablet Take 1 tablet by mouth once daily. - Cholestyramine-Aspartame (CHOLESTYRAMINE LIGHT) 4 gram powder Take 4 g by mouth three times daily with meals. - glipiZIDE (GLUCOTROL) 5 mg tablet Take 5 mg by mouth twice daily before meals. - JARDIANCE 25 mg tablet - ELIQUIS 2.5 mg tab tab(s) Take 2.5 mg by mouth twice daily. - venlafaxine ER (EFFEXOR XR) 75 mg 24 hr capsule TAKE 1 CAPSULE BY MOUTH ONE TIME A DAY - metoprolol succinate ER (TOPROL XL) 25 mg 24 hr tablet Take 25 mg by mouth once daily. - ALPRAZolam (XANAX) 0.25 mg tablet Take 0.25 mg by mouth as needed. - FLUoxetine HCl (PROZAC) 40 mg capsule Take 40 mg by mouth twice daily. - acetaminophen (TYLENOL) 650 mg/20.3 mL soln Take 20.3 mL by mouth every 6 hours as needed. - atorvastatin (LIPITOR) 40 mg tablet Take 40 mg by mouth daily at bedtime. - nitroglycerin sublingual (NITROSTAT) 0.4 mg SL tablet Dissolve 0.4 mg under the tongue every 5 minutes as needed. 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 Injection given and documented on AUG per provider order. Lillina Tucker MA Prescriptions ordered this encounter Disp Refills Start End CYANOCOBALAMIN (VIT B-12) 1,000 MCG/* 01/29/2024 01/29/2024 Route: INTRAMUSCULA Encounter Status:Closed by LILLIAN TUCKER on 01/29/24 [facility] CNNURSEon 01-08-2024 [facility] Nurse Visit (HEMASA) ROCIO JACKSON ([id number]) 1955 M Date Time Provider Department 01/08/24 3:15 PM [facility] NURSE [place] [facility] During your visit today, we recorded the following information about you: Temperature Pulse Respiration Blood pressure 97.6 degrees 88/minute 16/minute 101/68 Lillian Tucker MA 01/08/2024 3:26 PM Signed Patient Identification confirmed: yes. Injection given and documented on AUG per provider order. 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 - enteric contrast (will be provided with radiology test) For CT CHESTABD/PEL W IVCON Routine order Administer, As Directed One Time Only, via Oral, Rectal, both Oral and Rectal, Enteric Tube, Stoma or Indwelling Catheter, Enteric Contrast as designated per enteric contrast guidelines - metoclopramide HCl (REGLAN) 10 mg tablet Take 1 tablet by mouth three times a day with meals. - cdlvxk-sejvwjuu-dtkbtny (ZENPEP) 25,000-79,000- 105,000 unit delayed release capsule Take 2 capsules by mouth three times a day with meals. - kzatjo-mpedcjgb-doerxel (CREON 24) 24,000-76,000 -120,000 unit delayed release capsule Take 2 capsules by mouth three times a day with meals. - folic acid 1 mg tablet Take 1 tablet by mouth once daily. - Cholestyramine-Aspartame (CHOLESTYRAMINE LIGHT) 4 gram powder Take 4 g by mouth three times daily with meals. - glipiZIDE (GLUCOTROL) 5 mg tablet Take 5 mg by mouth twice daily before meals. - JARDIANCE 25 mg tablet - ELIQUIS 2.5 mg tab tab(s) Take 2.5 mg by mouth twice daily. - venlafaxine ER (EFFEXOR XR) 75 mg 24 hr capsule TAKE 1 CAPSULE BY MOUTH ONE TIME A DAY - metoprolol succinate ER (TOPROL XL) 25 mg 24 hr tablet Take 25 mg by mouth once daily. - ALPRAZolam (XANAX) 0.25 mg tablet Take 0.25 mg by mouth as needed. - FLUoxetine HCl (PROZAC) 40 mg capsule Take 40 mg by mouth twice daily. - acetaminophen (TYLENOL) 650 mg/20.3 mL soln Take 20.3 mL by mouth every 6 hours as needed. - atorvastatin (LIPITOR) 40 mg tablet Take 40 mg by mouth daily at bedtime. - nitroglycerin sublingual (NITROSTAT) 0.4 mg SL tablet Dissolve 0.4 mg under the tongue every 5 minutes as needed. 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 Injection given and documented on AUG per provider order. Lillian Tucker MA Prescriptions ordered this encounter Disp Refills Start End CYANOCOBALAMIN (VIT B-12) 1,000 MCG/* 01/08/2024 01/08/2024 Route: INTRAMUSCULA Encounter Status:Closed by LILLIAN TUCKER on 01/08/24 [facility][id number]) 1955 M Date Time Provider Department 01/04/24 ZAHRA MAY During your visit today, we recorded the following information about you: Srinivasan See MA 01/04/2024 3:22 PM Signed DATE ON NEEDS TO BE CHANGED TO SCHEDULED DATE OF 01/07. Srinivasan See MA Allergies As of Date: 01/04/2024 (No Known Allergies) Date Reviewed: 01/04/2024 Reviewed by: Leila Wagner PA-C - Fully Assessed Reason for Visit: Lab Orders [5078] Prescriptions as of 01/04/2024 - iv contrast (will be provided with radiology [...] in the CT contrast administration guidelines link. - enteric contrast (will be provided with radiology test) For CT CHESTABD/PEL W IVCON Routine order Administer, As Directed One Time Only, via Oral, Rectal, both Oral and Rectal, Enteric Tube, Stoma or Indwelling Catheter, Enteric Contrast as designated per enteric contrast guidelines - metoclopramide HCl (REGLAN) 10 mg tablet Take 1 tablet by mouth three times a day with meals. - eckxaj-wisvwyfc-rcfomyc (ZENPEP) 25,000-79,000- 105,000 unit delayed release capsule Take 2 capsules by mouth three times a day with meals. - eghbfm-kbvyiyae-aomviug (CREON 24) 24,000-76,000 -120,000 unit delayed release capsule Take 2 capsules by mouth three times a day with meals. - folic acid 1 mg tablet Take 1 tablet by mouth once daily. - Cholestyramine-Aspartame (CHOLESTYRAMINE LIGHT) 4 gram powder Take 4 g by mouth three times daily with meals. - glipiZIDE (GLUCOTROL) 5 mg tablet Take 5 mg by mouth twice daily before meals. - JARDIANCE 25 mg tablet - ELIQUIS 2.5 mg tab tab(s) Take 2.5 mg by mouth twice daily. - venlafaxine ER (EFFEXOR XR) 75 mg 24 hr capsule TAKE 1 CAPSULE BY MOUTH ONE TIME A DAY - metoprolol succinate ER (TOPROL XL) 25 mg 24 hr tablet Take 25 mg by mouth once daily. - ALPRAZolam (XANAX) 0.25 mg tablet Take 0.25 mg by mouth as needed. - FLUoxetine HCl (PROZAC) 40 mg capsule Take 40 mg by mouth twice daily. - acetaminophen (TYLENOL) 650 mg/20.3 mL soln Take 20.3 mL by mouth every 6 hours as needed. - atorvastatin (LIPITOR) 40 mg tablet Take 40 mg by mouth daily at bedtime. - nitroglycerin sublingual (NITROSTAT) 0.4 mg SL tablet Dissolve 0.4 mg under the tongue every 5 minutes as needed. 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] 09/15/2017 Adenocarcinoma (HCC) [C80.1] 11/06/2017 Abnormal weight loss [R63.4] 03/26/2018 Anemia due to vitamin B12 deficiency [D51.9] 04/08/2018 Macrocytosis [D75.89] 02/13/2022 Iron deficiency anemia secondary to inadequate *09/10/2023 Encounter Status:Closed by ZAHRA MAY on 01/04/24 Normal [facility] Basophils Auto (Bld) [#/Vol] on 12-03-2023 Basophils (Bld) [#/Vol] 10*3/uL <0.11 [facility] Basophils/100 WBC Auto (Bld) on 12-03-2023 Basophils/100 WBC (Bld) 0.3 % [facility] Blood manual differential co mment interpretation narrativeon 12-03-2023 Manual differential comment Evgeny (Bld) [Interp] Auto [facility] CBC W Auto Differential pane l (Bld)on 12-03-2023 Basophils (Bld) [#/Vol] 10*3/uL Normal <0.11 [facility] Comment on above: Order Comment: Speci men Type: BLOOD SPECIMEN Ordering Facility: [facility] Address: [address] [place], [place] [address] Performed By: #### 2 4108-3 #### [facility] CLIA [id number] [address] [place] [address] [place] Basophils/100 WBC (Bld) 0.3 % Normal [facility] Comment on above: Order Comment: Speci men Type: BLOOD SPECIMEN Ordering Facility: [facility] Address: [address] [place] [address] Performed By: #### 2 4108-3 #### [facility] CLIA [id number] [address] [place] [address] [place] Differential cell count method Nom (Bld) Auto Normal [facility] Comment on above: Order Comment: Speci men Type: BLOOD SPECIMEN Ordering Facility: [facility] Address: [address] [place] [address] Performed By: #### 2 4108-3 #### [facility] CLIA [id number] [address] [place] [address] [place] Eosinophils (Bld) [#/Vol] 0.22 10*3/uL Normal <0.46 [facility] Comment on above: Order Comment: Speci men Type: BLOOD SPECIMEN Ordering Facility: [facility] Address: [address] [place] [address] Performed By: #### 2 4108-3 #### [facility] CLIA [id number] [address] [place] [address] [place] Eosinophils/100 WBC (Bld) 3.6 % Normal [facility] Comment on above: Order Comment: Speci men Type: BLOOD SPECIMEN Ordering Facility: [facility] Address: [address] [place] [address] Performed By: #### 2 4108-3 #### [facility] CLIA [id number] [address] [place] [address] [place] Erythrocyte distribution width (RBC) [Ratio] 13.4 % Normal 11.5-15.0 [facility] Comment on above: Order Comment: Speci men Type: BLOOD SPECIMEN Ordering Facility: [facility] Address: [address] [place] [address] Performed By: #### 2 4108-3 #### [facility] CLIA [id number] [address] [place] [address] [place] Hematocrit (Bld) [Volume fraction] 34.0 % Low 39.0-51.0 [facility] Comment on above: Order Comment: Speci men Type: BLOOD SPECIMEN Ordering Facility: [facility] Address: [address] [place] [address] Performed By: #### 2 4108-3 #### [facility] CLIA [id number] [address] [place] [address] [place] Hemoglobin (Bld) [Mass/Vol] 10.9 g/dL Low 13.0-17.0 [facility] Comment on above: Order Comment: Speci men Type: BLOOD SPECIMEN Ordering Facility: [facility] Address: [address] [place] [address] Performed By: #### 2 4108-3 #### [facility] CLIA [id number] [address] [place] [address] [place] Immature granulocytes (Bld) [#/Vol] 0.06 10*3/uL Normal <0.10 [facility] Comment on above: Order Comment: Speci men Type: BLOOD SPECIMEN Ordering Facility: [facility] Address: [address] [place] [address] Performed By: #### 2 4108-3 #### [facility] CLIA [id number] [address] [place] [address] [place] Immature granulocytes/100 WBC (Bld) 1.0 % Normal [facility] Comment on above: Order Comment: Speci men Type: BLOOD SPECIMEN Ordering Facility: [facility] Address: [address] [place] [address] Performed By: #### 2 4108-3 #### [facility] CLIA [id number] [address] [place] [address] [place] Lymphocytes (Bld) [#/Vol] 1.08 10*3/uL Normal 1.00-4.00 [facility] Comment on above: Order Comment: Speci men Type: BLOOD SPECIMEN Ordering Facility: [facility] Address: [address] [place] [address] Performed By: #### 2 4108-3 #### [facility] CLIA [id number] [address] [place] [address] [place] Lymphocytes/100 WBC (Bld) 17.8 % Normal [facility] Comment on above: Order Comment: Speci men Type: BLOOD SPECIMEN Ordering Facility: [facility] Address: [address] [place] [address] Performed By: #### 2 4108-3 #### [facility] CLIA [id number] [address] [place] [address] [place] MCH (RBC) [Entitic mass] 32.3 pg Normal 26.0-34.0 [facility] Comment on above: Order Comment: Speci men Type: BLOOD SPECIMEN Ordering Facility: [facility] Address: [address] [place] [address] Performed By: #### 2 4108-3 #### [facility] CLIA [id number] [address] [place] [address] [place] MCHC (RBC) [Mass/Vol] 32.1 g/dL Normal 30.5-36.0 [facility] Comment on above: Order Comment: Speci men Type: BLOOD SPECIMEN Ordering Facility: [facility] Address: [address] [place] [address] Performed By: #### 2 4108-3 #### [facility] CLIA [id number] [address] [place] [address] [place] MCV (RBC) [Entitic vol] 100.9 fL High 80.0-100.0 [facility] Comment on above: Order Comment: Speci men Type: BLOOD SPECIMEN Ordering Facility: [facility] Address: [address] [place], [place] [address] Performed By: #### 2 4108-3 #### [facility] CLIA [id number] [address] [place] [address] [place] Monocytes (Bld) [#/Vol] 0.51 10*3/uL Normal <0.87 [facility] Comment on above: Order Comment: Speci men Type: BLOOD SPECIMEN Ordering Facility: [facility] Address: [address] [place] [address] Performed By: #### 2 4108-3 #### [facility] CLIA [id number] [address] [place] [address] [place] Monocytes/100 WBC (Bld) 8.4 % Normal [facility] Comment on above: Order Comment: Speci men Type: BLOOD SPECIMEN Ordering Facility: [facility] Address: [address] [place] [address] Performed By: #### 2 4108-3 #### [facility] CLIA [id number] [address] [place] [address] [place] Neutrophils (Bld) [#/Vol] 4.19 10*3/uL Normal 1.45-7.50 [facility] Comment on above: Order Comment: Speci men Type: BLOOD SPECIMEN Ordering Facility: [facility] Address: [address] [place] [address] Performed By: #### 2 4108-3 #### [facility] CLIA [id number] [address] [place] [address] [place] Neutrophils/100 WBC (Bld) 68.9 % Normal [facility] Comment on above: Order Comment: Speci men Type: BLOOD SPECIMEN Ordering Facility: [facility] Address: [address] [place] [address] Performed By: #### 2 4108-3 #### [facility] CLIA [id number] [address] [place] [address] [place] Nucleated RBC (Bld) [#/Vol] 10*3/uL Normal <0.01 [facility] Comment on above: Order Comment: Speci men Type: BLOOD SPECIMEN Ordering Facility: [facility] Address: [address] [place] [address] Performed By: #### 2 4108-3 #### [facility] CLIA [id number] [address] [place] [address] [place] Nucleated RBC/100 WBC (Bld) [Ratio] 0.0 /100 WBC Normal [facility] Comment on above: Order Comment: Speci men Type: BLOOD SPECIMEN Ordering Facility: [facility] Address: [address] [place] [address] Performed By: #### 2 4108-3 #### [facility] CLIA [id number] [address] [place] [address] [place] Platelet mean volume (Bld) [Entitic vol] 9.0 fL Normal 9.0-12.7 [facility] Comment on above: Order Comment: Speci men Type: BLOOD SPECIMEN Ordering Facility: [facility] Address: [address] [place] [address] Performed By: #### 2 4108-3 #### [facility] CLIA [id number] [address] [place] [address] [place] Platelets (Bld) [#/Vol] 361 10*3/uL Normal 150-400 [facility] Comment on above: Order Comment: Speci men Type: BLOOD SPECIMEN Ordering Facility: [facility] Address: [address] [place] [address] Performed By: #### 2 4108-3 #### [facility] CLIA [id number] [address] [place] [address] [place] RBC (Bld) [#/Vol] 3.37 10*6/uL Low 4.20-6.00 [facility] Comment on above: Order Comment: Speci men Type: BLOOD SPECIMEN Ordering Facility: [facility] Address: [address] [place] [address] Performed By: #### 2 4108-3 #### [facility] CLIA [id number] [address] [place] [address] [place] WBC (Bld) [#/Vol] 6.08 10*3/uL Normal 3.70-11.00 [facility] Comment on above: Order Comment: Speci men Type: BLOOD SPECIMEN Ordering Facility: [facility] Address: [address] [place] [address] Performed By: #### 2 4108-3 #### [facility] CLIA [id number] [address] [place] [address] [place] CNNURSEon 12-03-2023 CNNURSE Nurse Visit (HEMASA) ROCIO JACKSON ([id number]) 1955 M Date Time Provider Department 12/03/23 3:15 PM MELANI NURSE [place] [facility]OL During your visit today, we recorded the following information about you: Lillian Tucker MA 12/03/2023 3:35 PM Signed Patient Identification confirmed: yes. Injection given and documented on AUG per provider order. 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 - enteric contrast (will be provided with radiology test) For CT CHESTABD/PEL W IVCON Routine order Administer, As Directed One Time Only, via Oral, Rectal, both Oral and Rectal, Enteric Tube, Stoma or Indwelling Catheter, Enteric Contrast as designated per enteric contrast guidelines - metoclopramide HCl (REGLAN) 10 mg tablet Take 1 tablet by mouth three times a day with meals. - fvmslf-rfnuaexr-ayzsoyo (ZENPEP) 25,000-79,000- 105,000 unit delayed release capsule Take 2 capsules by mouth three times a day with meals. - udwrfn-htrjbgiu-igygxhg (CREON 24) 24,000-76,000 -120,000 unit delayed release capsule Take 2 capsules by mouth three times a day with meals. - folic acid 1 mg tablet Take 1 tablet by mouth once daily. - Cholestyramine-Aspartame (CHOLESTYRAMINE LIGHT) 4 gram powder Take 4 g by mouth three times daily with meals. - glipiZIDE (GLUCOTROL) 5 mg tablet Take 5 mg by mouth twice daily before meals. - JARDIANCE 25 mg tablet - ELIQUIS 2.5 mg tab tab(s) Take 2.5 mg by mouth twice daily. - venlafaxine ER (EFFEXOR XR) 75 mg 24 hr capsule TAKE 1 CAPSULE BY MOUTH ONE TIME A DAY - metoprolol succinate ER (TOPROL XL) 25 mg 24 hr tablet Take 25 mg by mouth once daily. - ALPRAZolam (XANAX) 0.25 mg tablet Take 0.25 mg by mouth as needed. - FLUoxetine HCl (PROZAC) 40 mg capsule Take 40 mg by mouth twice daily. - acetaminophen (TYLENOL) 650 mg/20.3 mL soln Take 20.3 mL by mouth every 6 hours as needed. - atorvastatin (LIPITOR) 40 mg tablet Take 40 mg by mouth daily at bedtime. - nitroglycerin sublingual (NITROSTAT) 0.4 mg SL tablet Dissolve 0.4 mg under the tongue every 5 minutes as needed. 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 Injection given and documented on AUG per provider order. Lillian Tucker MA Prescriptions ordered this encounter Disp Refills Start End CYANOCOBALAMIN (VIT B-12) 1,000 MCG/* 12/03/2023 12/03/2023 Route: INTRAMUSCULA Encounter Status:Closed by LILLIAN TUCKER on 12/03/23 [facility] CNOVSPon 12-03-2023 OVSP Visit (SP) Office (Johnathan MCKENZIE) ROCIO JACKSON ([id number]) 1955 M Date Time Provider Department 12/03/23 3:00 PM ZAHRA MAY During your visit today, we recorded the following information about you: Temperature Pulse Respiration Blood pressure 97.1 degrees 96/minute 18/minute 102/66 Zahra May MD 12/05/2023 3:00 PM Signed NAME: Coleen Jacksonn CLINIC NO.: [id number] DATE OF SERVICE: December 03, 2023 ([place]) Some elements in this clinic note that are critical to medical decision making have been carefully reviewed and included from a prior clinic note dated: September 10, 2023 (Iftikhar) Referring Provider: Dr. Vanessa Bejarano Additional Clinicians involved in Rocio Jackson's care: Dr. David Caputo CC: Follow up on anemia. 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 H/O iron deficiency anemia 3. Folate deficiency anemia 4. B12 deficiency anemia ASSESSMENT: Cancer of ampulla of Vater [...] Doing well on B12 and folate replacement. No evidence of recurrence. PLAN: B12 shot today and every 4 weeks Triage to call with results of iron studies IV iron if indicated (previously received Monoferric) Continue folic acid 1 mg daily as Rx'd CT scans with labs in 3 months RTC 1 week after Continue following with Dr. Caputo for DMII management - HPI: CASE HISTORY: Reverse Chronological Order 09/03/2023 - CT CAP: Chest: Persistent elevation of the right hemidiaphragm. Adjacent compression atelectasis in the right lung field, increased since 03/11/23. Interval resolution of previously noted patchy opacity in the lingula. Otherwise no evidence of intrathoracic metastases. A/P: Mild mesenteric mesenteric lymphadenopathy, increased since 03/11/23. Prominent motion artifact. 03/11/2023 - PET/CT: HEAD and NECK: No evidence of focal uptake to suggest FDG avid neoplastic process.. CHEST: Focal airspace opacity and groundglass nodule in the left lung base with mild FDG uptake, probably inflammatory in nature. Follow-up is recommended. ABDOMEN/PELVIS: No evidence of focal uptake to suggest FDG avid neoplastic process. Probably postsurgical inflammation in abdomen. EXTREMITIES/SKELETON: No evidence of focal uptake to suggest FDG avid neoplastic process.. 03/2022 - IV iron 02/06/2022 - CT chest abdomen and pelvis with IV contrast: Chest: New reticulonodular opacities in the right upper lobe most likely infectious/inflammatory in etiology. Marked motion artifact. Findings compatible with previous granulomatous disease. A/P: Nonspecific borderline mesenteric lymphadenopathy, stable since 02/20/20. New trace pelvic ascites. Nonspecific persistent diffuse thickening of the urinary bladder wall. Stool is noted throughout the colon.Prominent motion artifact. 08/15/2019 - CT chest abdomen and pelvis with IV contrast: Chest: Several mildly prominent central mesenteric lymph nodes are again identified, stable from the prior examination of 12/21/2018. Postoperative changes, compatible with prior Whipple's procedure. No CT evidence for recurrent mass. A/P: There has been interval development of minimal patchy groundglass opacity, as well as a small consolidative opacity within the left lingula, likely infectious/inflammatory nature. 2. No suspicious pulmonary nodule is appreciated. No substantial intrathoracic adenopathy is identified. Evidence for prior granulomatous disease. 12/21/2018 - CT CAP: Stable CT examination of the chest as above. Several mildly prominent central mesenteric lymph nodes are again identified, less conspicuous when compared to the prior study of 06/04/2018. Postoperative changes, compatible with prior Whipple's procedure. 04/2018 - IV iron given 11/13/2017-01/22/2018 - Adjuvant chemotherapy with Gemzar and Xeloda (Per Dr. Reyez) 09/30/2017 - Pancreas and duodenum, pancreaticoduodenectomy (D) Invasive poorly (more content not included)... Normal [facility] CNPNon 12-03-2023 CNPN Telephone (NCCAP) ROCIO JACKSON ([id number]) 1955 Date Time Provider Department 12/03/23 ZAHRA MAY [facility] During your visit today, we recorded the following information about you: Mile Sharma 12/03/2023 3:[address] Crooks is requesting Triage nurse to call patient with results of FE studies from today 12-03-23. Thank you Cassandra Hernandez RN 12/07/2023 12:16 PM Signed MM: Please advise on Iron labs FRANSICO Murdock Mindy M, PA-C 12/07/2023 12:23 PM Signed Noneed for iron at this time FAINA Guillory Natalie, RN 12/07/2023 1:55 PM Signed Pt daughter, Shiela, aware of MM message and denies any questions, needs or concerns at this time. Cassandra Hernandez RN Allergies As of Date: 12/03/2023 (No Known Allergies) Date Reviewed: 12/03/2023 Reviewed by: Srinivasan See MA - Fully Assessed Reason for Visit: Results [95] Prescriptions as of 12/07/2023 - iv contrast (will be provided with radiology [...] in the CT contrast administration guidelines link. - enteric contrast (will be provided with radiology test) For CT CHESTABD/PEL W IVCON Routine order Administer, As Directed One Time Only, via Oral, Rectal, both Oral and Rectal, Enteric Tube, Stoma or Indwelling Catheter, Enteric Contrast as designated per enteric contrast guidelines - metoclopramide HCl (REGLAN) 10 mg tablet Take 1 tablet by mouth three times a day with meals. - befkaf-chvgdefj-anpktbo (ZENPEP) 25,000-79,000- 105,000 unit delayed release capsule Take 2 capsules by mouth three times a day with meals. - irmzny-qaeafgpq-lxvpddw (CREON 24) 24,000-76,000 -120,000 unit delayed release capsule Take 2 capsules by mouth three times a day with meals. - folic acid 1 mg tablet Take 1 tablet by mouth once daily. - Cholestyramine-Aspartame (CHOLESTYRAMINE LIGHT) 4 gram powder Take 4 g by mouth three times daily with meals. - glipiZIDE (GLUCOTROL) 5 mg tablet Take 5 mg by mouth twice daily before meals. - JARDIANCE 25 mg tablet - ELIQUIS 2.5 mg tab tab(s) Take 2.5 mg by mouth twice daily. - venlafaxine ER (EFFEXOR XR) 75 mg 24 hr capsule TAKE 1 CAPSULE BY MOUTH ONE TIME A DAY - metoprolol succinate ER (TOPROL XL) 25 mg 24 hr tablet Take 25 mg by mouth once daily. - ALPRAZolam (XANAX) 0.25 mg tablet Take 0.25 mg by mouth as needed. - FLUoxetine HCl (PROZAC) 40 mg capsule Take 40 mg by mouth twice daily. - acetaminophen (TYLENOL) 650 mg/20.3 mL soln Take 20.3 mL by mouth every 6 hours as needed. - atorvastatin (LIPITOR) 40 mg tablet Take 40 mg by mouth daily at bedtime. - nitroglycerin sublingual (NITROSTAT) 0.4 mg SL tablet Dissolve 0.4 mg under the tongue every 5 minutes as needed. 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] 09/15/2017 Adenocarcinoma (HCC) [C80.1] 11/06/2017 Abnormal weight loss [R63.4] 03/26/2018 Anemia due to vitamin B12 deficiency [D51.9] 04/08/2018 Macrocytosis [D75.89] 02/13/2022 Iron deficiency anemia secondary to inadequate *09/10/2023 Encounter Status:Closed by CASSANDRA HERNANDEZ on 12/07/23 Normal [facility] Comprehensive metabolic 2000 panelon 12-03-2023 Albumin [Mass/Vol] 3.6 g/dL Low 3.9-4.9 [facility] Comment on above: Order Comment: Speci men Type: BLOOD SPECIMEN Ordering Facility: [facility] Address: [address] [place] [address] Performed By: #### 2 4323-8 #### [facility] CLIA [id number] [address] [place] [address] ALP [Catalytic activity/Vol] 158 U/L High 38-113 [facility] Comment on above: Order Comment: Speci men Type: BLOOD SPECIMEN Ordering Facility: [facility] Address: [address] [place] [address] Performed By: #### 2 4323-8 #### [facility] CLIA [id number] [address] [place] [address] ALT [Catalytic activity/Vol] 13 U/L Normal 10-54 [facility] Comment on above: Order Comment: Speci men Type: BLOOD SPECIMEN Ordering Facility: [facility] Address: [address] [place] [address] Performed By: #### 2 4323-8 #### [facility] CLIA [id number] [address] [place] [address] Anion gap [Moles/Vol] 10 mmol/L Normal 8-15 [facility] Comment on above: Order Comment: Speci men Type: BLOOD SPECIMEN Ordering Facility: [facility] Address: [address] [place] [address] Performed By: #### 2 4323-8 #### [facility] CLIA [id number] [address] [place] [address] AST [Catalytic activity/Vol] 13 U/L Low 14-40 [facility] Comment on above: Order Comment: Speci men Type: BLOOD SPECIMEN Ordering Facility: [facility] Address: [address] [place] [address] Performed By: #### 2 4323-8 #### [facility] CLIA [id number] [address] [place] [address] Bilirubin [Mass/Vol] 0.2 mg/dL Normal 0.2-1.3 [facility] Comment on above: Order Comment: Speci men Type: BLOOD SPECIMEN Ordering Facility: [facility] Address: [address] [place] [address] Performed By: #### 2 4323-8 #### [facility] CLIA [id number] [address] [place] [address] Calcium [Mass/Vol] 9.5 mg/dL Normal 8.5-10.2 [facility] Comment on above: Order Comment: Speci men Type: BLOOD SPECIMEN Ordering Facility: [facility] Address: [address] [place] [address] Performed By: #### 2 4323-8 #### [facility] CLIA [id number] [address] [place] [address] Chloride [Moles/Vol] 108 mmol/L High 98-107 [facility] Comment on above: Order Comment: Speci men Type: BLOOD SPECIMEN Ordering Facility: [facility] Address: [address] [place] [address] Performed By: #### 2 4323-8 #### [facility] CLIA [id number] [address] [place] [address] CO2 [Moles/Vol] 19 mmol/L Low 22-30 [facility] Comment on above: Order Comment: Speci men Type: BLOOD SPECIMEN Ordering Facility: [facility] Address: [address] [place], [place] [address] Performed By: #### 2 4323-8 #### [facility] CLIA [id number] [address] [place] [address] Creatinine [Mass/Vol] 0.78 mg/dL Normal 0.73-1.22 [facility] Comment on above: Order Comment: Speci men Type: BLOOD SPECIMEN Ordering Facility: [facility] Address: [address] [place] [address] Performed By: #### 2 4323-8 #### [facility] CLIA [id number] [address] [place] [address] Creatinine and Glomerular filtration rate.predicted panel (S/P/Bld) 98 mL/min/1.73m??? Normal >=60 [facility] Comment on above: Order Comment: Speci men Type: BLOOD SPECIMEN Ordering Facility: [facility] Address: [address] [place] [address] Result Comment: Megan mated Glomerular Filtration Rate [...] actual GFR. Performed By: #### 2 4323-8 #### [facility] CLIA [id number] [address] [place] [address] Glucose [Mass/Vol] 103 mg/dL High 74-99 [facility] Comment on above: Order Comment: Speci men Type: BLOOD SPECIMEN Ordering Facility: [facility] Address: [address] [place] [address] Result Comment: The [place] [employer] (ADA) provides guidance for cutoff values for fasting glucose and random glucose. The ADA defines fasting as no caloric intake for at least 8 hours. Fasting plasma glucose results between 100 to 125 mg/dL indicate increased risk for diabetes (prediabetes). Fasting plasma glucose results greater than or equal to 126 mg/dL meet the criteria for diagnosis of diabetes. In the absence of unequivocal hyperglycemia, results should be confirmed by repeat testing. In a patient with classic symptoms of hyperglycemia or hyperglycemic crisis, random plasma glucose results greater than or equal to 200 mg/dL meet the criteria for diagnosis of diabetes. Reference: Standards of Medical Care in Diabetes 2016, [place] [employer]. Diabetes Care. 2016.39(Suppl 1). Performed By: #### 2 4323-8 #### [facility] CLIA [id number] [address] [place] [address] Potassium [Moles/Vol] 4.5 mmol/L Normal 3.7-5.1 [facility] Comment on above: Order Comment: Speci men Type: BLOOD SPECIMEN Ordering Facility: [facility] Address: [address] [place] [address] Performed By: #### 2 4323-8 #### [facility] CLIA [id number] [address] [place] [address] Protein [Mass/Vol] 7.0 g/dL Normal 6.3-8.0 [facility] Comment on above: Order Comment: Speci men Type: BLOOD SPECIMEN Ordering Facility: [facility] Address: [address] [place] [id number] Performed By: #### 2 4323-8 #### [facility] CLIA [id number] [address] [place] [address] Sodium [Moles/Vol] 137 mmol/L Normal 136-144 [facility] Comment on above: Order Comment: Speci men Type: BLOOD SPECIMEN Ordering Facility: [facility] Address: [address] [place] [address] Performed By: #### 2 4323-8 #### [facility] CLIA [id number] [address] [place] [address] Urea nitrogen [Mass/Vol] 25 mg/dL High 9-24 [facility] Comment on above: Order Comment: Speci men Type: BLOOD SPECIMEN Ordering Facility: [facility] Address: [address] [place] [address] Performed By: #### 2 4323-8 #### [facility] CLIA [id number] [address] [place] [address] Eosinophils/100 WBC Auto (Bl d)on 12-03-2023 Eosinophils/100 WBC (Bld) 3.6 % [facility] Erythrocyte distribution wid th Auto (RBC) [Ratio]on 12-03-2023 Erythrocyte distribution width (RBC) [Ratio] 13.4 % 11.5-15.0 [facility] Ferritin SerPl-mCncon 2023 Ferritin [Mass/Vol] 667.0 ng/mL High 30.3-565.7 [facility] Comment on above: Order Comment: Speci men Type: BLOOD SPECIMEN Ordering Facility: [facility] Address: [address] [place] [address] Performed By: #### 2 4108-3 #### [facility] CLIA [id number] [address] [place] [address] [place] Folate SerPl-mCncon 12-03-19 24 Folate [Mass/Vol] 17.4 ng/mL Normal >4.7 [facility] Comment on above: Order Comment: Speci men Type: BLOOD SPECIMEN Ordering Facility: [facility] Address: [address] [place] [address] Performed By: #### 2 4108-3 #### [facility] CLIA [id number] [address] [place] [address] [place] Hematocrit Auto (Bld) [Volum e fraction]on 12-03-2023 Hematocrit (Bld) [Volume fraction] 34.0 % Low 39.0-51.0 [facility] Hemoglobin [Mass/volume] in Bloodon 12-03-2023 Hemoglobin (Bld) [Mass/Vol] 10.9 g/dL Low 13.0-17.0 [facility] Iron and Iron binding capaci ty panelon 12-03-2023 Iron [Mass/Vol] 34 ug/dL Low 41-186 [facility] Comment on above: Order Comment: Speci men Type: BLOOD SPECIMEN Ordering Facility: [facility] Address: [address] [place] [address] Performed By: #### 2 4108-3 #### [facility] CLIA [id number] [address] [place] [address] [place] Iron binding capacity [Mass/Vol] 194 ug/dL Low 232-386 [facility] Comment on above: Order Comment: Speci men Type: BLOOD SPECIMEN Ordering Facility: [facility] Address: [address] [place] [address] Performed By: #### 2 4108-3 #### [facility] CLIA [id number] [address] [place] [address] [place] Iron/TIBC [Molar ratio] 17.5 % Normal 15.0-57.0 [facility] Comment on above: Order Comment: Speci men Type: BLOOD SPECIMEN Ordering Facility: [facility] Address: [address] [place] [address] Performed By: #### 2 4108-3 #### [facility] CLIA [id number] [address] [place] [address] [place] Iron binding capacity [Mass/ volume] in Serum or Plasmaon 12-03-2023 Iron binding capacity [Mass/Vol] 194 ug/dL Low 232-386 [facility] Iron saturation [Mass Fracti on] in Serum or Plasmaon 12-03-2023 Iron saturation [Mass fraction] 17.5 % 15.0-57.0 [facility] - Chemistry and C hemistry - challengeon 12-03-2023 Albumin [Mass/Vol] 3.6 g/dL Low 3.9-4.9 [facility] ALP [Catalytic activity/Vol] 158 U/L High 38-113 [facility] ALT [Catalytic activity/Vol] 13 U/L 10-54 [facility] AST [Catalytic activity/Vol] 13 U/L Low 14-40 [facility] Bilirubin [Mass/Vol] 0.2 mg/dL 0.2-1.3 [facility] Calcium [Mass/Vol] 9.5 mg/dL 8.5-10.2 [facility] Chloride [Moles/Vol] 108 mmol/L High 98-107 [facility] CO2 [Moles/Vol] 19 mmol/L Low 22-30 [facility] Cobalamin (Vitamin B12) [Mass/Vol] 1473 pg/mL High 232-1245 [facility] Creatinine [Mass/Vol] 0.78 mg/dL 0.73-1.22 [facility] Ferritin [Mass/Vol] 667.0 ng/mL High 30.3-565.7 [facility] Glucose [Mass/Vol] 103 mg/dL High 74-99 [facility] Comment on above: The [place] Diab[employer] Association (ADA) provides guidance for cutoff values [...] Standards of Medical Care in Diabetes 2016, [place] [employer]. Diabetes Care. 2016.39(Suppl 1). Iron [Mass/Vol] 34 ug/dL Low 41-186 [facility] Potassium [Moles/Vol] 4.5 mmol/L 3.7-5.1 [facility] Sodium [Moles/Vol] 137 mmol/L 136-144 [facility] Urea nitrogen [Mass/Vol] 25 mg/dL High 9-24 [facility] - Hematology and Cell countson 12-03-2023 Eosinophils (Bld) [#/Vol] 0.22 10*3/uL <0.46 [facility] Immature granulocytes (Bld) [#/Vol] 0.06 10*3/uL <0.10 [facility] Immature granulocytes/100 WBC (Bld) 1.0 % [facility] Leukocytes [#/volume] correc missael for nucleated erythrocytes in Blood by Automated counon 12-03-2023 WBC corrected for nucl RBC Auto (Bld) [#/Vol] 6.08 k/uL 3.70-11.00 [facility] Lymphocytes Auto (Bld) [#/Vo l]on 12-03-2023 Lymphocytes (Bld) [#/Vol] 1.08 10*3/uL 1.00-4.00 [facility] Lymphocytes/100 WBC Auto (Bl d)on 12-03-2023 Lymphocytes/100 WBC (Bld) 17.8 % [facility] MCH Auto (RBC) [Entitic mass ]on 12-03-2023 MCH (RBC) [Entitic mass] 32.3 pg 26.0-34.0 [facility] MCHC Auto (RBC) [Mass/Vol]on 12-03-2023 MCHC (RBC) [Mass/Vol] 32.1 g/dL 30.5-36.0 [facility] MCV Auto (RBC) [Entitic vol] on 12-03-2023 MCV (RBC) [Entitic vol] 100.9 fL High 80.0-100.0 [facility] Monocytes Auto (Bld) [#/Vol] on 12-03-2023 Monocytes (Bld) [#/Vol] 0.51 10*3/uL <0.87 [facility] Monocytes/100 WBC Auto (Bld) on 12-03-2023 Monocytes/100 WBC (Bld) 8.4 % [facility] Neutrophils Auto (Bld) [#/Vo l]on 12-03-2023 Neutrophils (Bld) [#/Vol] 4.19 10*3/uL 1.45-7.50 [facility] Neutrophils/100 WBC Auto (Bl d)on 12-03-2023 Neutrophils/100 WBC (Bld) 68.9 % [facility] No Panel Informationon 12-02 Estimated GFR (CKD-EPI) 98 mL/min/1.73m??? >=60 [facility] Comment on above: Estimated Glomerular Filtration Rate (eGFR) is calculated using the 2020 CKD-EPI creatinine equation. This equation utilizes serum creatinine, sex, and age as parameters. The creatinine assay has traceable calibration to isotope dilution-mass spectrometry. Refer to KDIGO guidelines for clinical interpretation. In patients with unstable renal function, e.g. those with acute kidney injury, the eGFR may not accurately reflect actual GFR. Folate 17.4 ng/mL >4.7 [facility] Nucleated RBC Auto (Bld) [#/ Vol]on 12-03-2023 Nucleated RBC (Bld) [#/Vol] 10*3/uL <0.01 [facility] Nucleated erythrocytes [Pres ence] in Blood by Automated counton 12-03-2023 Nucleated RBC Auto Ql (Bld) 0.0 /100{WBC} [facility] Platelet mean volume Auto (B ld) [Entitic vol]on 12-03-2023 Platelet mean volume (Bld) [Entitic vol] 9.0 fL 9.0-12.7 [facility] Platelets Auto (Bld) [#/Vol] on 12-03-2023 Platelets (Bld) [#/Vol] 361 10*3/uL 150-400 [facility] Protein [Mass/volume] in Ser um or Plasmaon 12-03-2023 Protein [Mass/Vol] 7.0 g/dL 6.3-8.0 [facility] RBC Auto (Bld) [#/Vol]on RBC (Bld) [#/Vol] 3.37 10*6/uL Low 4.20-6.00 [facility] Serum or plasma anion gap de terminationon 12-03-2023 Anion gap [Moles/Vol] 10 mmol/L 8-15 [facility] Vit B12 SerPl-mCncon 024 Cobalamin (Vitamin B12) [Mass/Vol] 1473 pg/mL High 232-1245 [facility] Comment on above: Order Comment: Speci men Type: BLOOD SPECIMEN Ordering Facility: [facility] Address: [address] [place] [address] Performed By: #### 2 4108-3 #### [facility] KAIA [id number] [address] [place] [address] [facility] CNNURSEon 11-05-2023 CNNURSE Nurse Visit (HEMASA) ROCIO JACKSON ([id number]) 1955 M Date Time Provider Department 11/05/23 2:15 PM MELANI NURSE [place] POOL During your visit today, we recorded the following information about you: Temperature Pulse Respiration Blood pressure 97.3 degrees 95/minute 18/minute 100/64 Livier Seay MA 11/05/2023 2:27 PM Signed Patient Identification confirmed: yes. Injection given and documented on AUG per provider order. 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 - zavcxj-etpkviji-nxanvut (ZENPEP) 25,000-79,000- 105,000 unit delayed release capsule Take 2 capsules by mouth three times a day with meals. - nugwyz-dlyekvqv-blukirf (CREON 24) 24,000-76,000 -120,000 unit delayed release capsule Take 2 capsules by mouth three times a day with meals. - folic acid 1 mg tablet Take 1 tablet by mouth once daily. - Cholestyramine-Aspartame (CHOLESTYRAMINE LIGHT) 4 gram powder Take 4 g by mouth three times daily with meals. - glipiZIDE (GLUCOTROL) 5 mg tablet Take 5 mg by mouth twice daily before meals. - JARDIANCE 25 mg tablet - ELIQUIS 2.5 mg tab tab(s) Take 2.5 mg by mouth twice daily. - venlafaxine ER (EFFEXOR XR) 75 mg 24 hr capsule TAKE 1 CAPSULE BY MOUTH ONE TIME A DAY - metoprolol succinate ER (TOPROL XL) 25 mg 24 hr tablet Take 25 mg by mouth once daily. - ALPRAZolam (XANAX) 0.25 mg tablet Take 0.25 mg by mouth as needed. - FLUoxetine HCl (PROZAC) 40 mg capsule Take 40 mg by mouth twice daily. - acetaminophen (TYLENOL) 650 mg/20.3 mL soln Take 20.3 mL by mouth every 6 hours as needed. - atorvastatin (LIPITOR) 40 mg tablet Take 40 mg by mouth daily at bedtime. - nitroglycerin sublingual (NITROSTAT) 0.4 mg SL tablet Dissolve 0.4 mg under the tongue every 5 minutes as needed. 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 Injection given and documented on AUG per provider order. Livier Seay MA Prescriptions ordered this encounter Disp Refills Start End CYANOCOBALAMIN (VIT B-12) 1,000 MCG/* 11/05/2023 11/05/2023 Route: INTRAMUSCULA Encounter Status:Closed by LIVIER SEAY on 11/05/23 [facility] 10-08-2023 [facility] Nurse Visit (HEMASA) ROCIO JACKSON ([id number]) 1955 M Date Time Provider Department 10/08/23 2:30 PM MELANI NURSE [place] POOL During your visit today, we recorded the following information about you: Temperature Pulse Respiration Blood pressure 97.4 degrees 76/minute 18/minute 95/53 Livier Seay MA 10/08/2023 3:03 PM Signed Patient Identification confirmed: yes. Injection given and documented on AUG per provider order. 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 - kiagha-olnmjihg-zgrkqtv (ZENPEP) 25,000-79,000- 105,000 unit delayed release capsule Take 2 capsules by mouth three times a day with meals. - xwctsc-hbwtdafo-venamwi (CREON 24) 24,000-76,000 -120,000 unit delayed release capsule Take 2 capsules by mouth three times a day with meals. - folic acid 1 mg tablet Take 1 tablet by mouth once daily. - Cholestyramine-Aspartame (CHOLESTYRAMINE LIGHT) 4 gram powder Take 4 g by mouth three times daily with meals. - glipiZIDE (GLUCOTROL) 5 mg tablet Take 5 mg by mouth twice daily before meals. - JARDIANCE 25 mg tablet - ELIQUIS 2.5 mg tab tab(s) Take 2.5 mg by mouth twice daily. - venlafaxine ER (EFFEXOR XR) 75 mg 24 hr capsule TAKE 1 CAPSULE BY MOUTH ONE TIME A DAY - metoprolol succinate ER (TOPROL XL) 25 mg 24 hr tablet Take 25 mg by mouth once daily. - ALPRAZolam (XANAX) 0.25 mg tablet Take 0.25 mg by mouth as needed. - FLUoxetine HCl (PROZAC) 40 mg capsule Take 40 mg by mouth twice daily. - acetaminophen (TYLENOL) 650 mg/20.3 mL soln Take 20.3 mL by mouth every 6 hours as needed. - atorvastatin (LIPITOR) 40 mg tablet Take 40 mg by mouth daily at bedtime. - nitroglycerin sublingual (NITROSTAT) 0.4 mg SL tablet Dissolve 0.4 mg under the tongue every 5 minutes as needed. 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 Injection given and documented on AUG per provider order. Livier Seay MA Prescriptions ordered this encounter Disp Refills Start End CYANOCOBALAMIN (VIT B-12) 1,000 MCG/* 10/08/2023 10/08/2023 Route: INTRAMUSCULA Encounter Status:Closed by LIVIER SEAY on 10/08/23 [facility] Taryn 09-24-2023 CNPN Telephone (HEMTSA) ROCIO JACKSON ([id number]) 1955 M Date Time Provider Department 09/24/23 [employer] [place] RAO During your visit today, we recorded the following information about you: Fer Hagen 09/24/2023 3:06 PM Signed 1st report of treatment-Non oncology regimen (Monoferric) Patient holds Medicare coverage and therefore no FA required. Allergies As of Date: 09/24/2023 (No Known Allergies) Date Reviewed: 09/10/2023 Reviewed by: Srinivasan See MA - Fully Assessed Reason for Visit: Benefits Investigation [[id number]] Prescriptions as of 09/24/2023 - tnasjj-maxswfki-taimpfs (ZENPEP) 25,000-79,000- 105,000 unit delayed release capsule Take 2 capsules by mouth three times a day with meals. - metoclopramide HCl (REGLAN) 10 mg tablet Take 1 tablet by mouth three times a day with meals. - novjwo-kntnzfhp-izknqwq (CREON 24) 24,000-76,000 -120,000 unit delayed release capsule Take 2 capsules by mouth three times a day with meals. - folic acid 1 mg tablet Take 1 tablet by mouth once daily. - Cholestyramine-Aspartame (CHOLESTYRAMINE LIGHT) 4 gram powder Take 4 g by mouth three times daily with meals. - glipiZIDE (GLUCOTROL) 5 mg tablet Take 5 mg by mouth twice daily before meals. - JARDIANCE 25 mg tablet - ELIQUIS 2.5 mg tab tab(s) Take 2.5 mg by mouth twice daily. - venlafaxine ER (EFFEXOR XR) 75 mg 24 hr capsule TAKE 1 CAPSULE BY MOUTH ONE TIME A DAY - metoprolol succinate ER (TOPROL XL) 25 mg 24 hr tablet Take 25 mg by mouth once daily. - ALPRAZolam (XANAX) 0.25 mg tablet Take 0.25 mg by mouth as needed. - FLUoxetine HCl (PROZAC) 40 mg capsule Take 40 mg by mouth twice daily. - acetaminophen (TYLENOL) 650 mg/20.3 mL soln Take 20.3 mL by mouth every 6 hours as needed. - atorvastatin (LIPITOR) 40 mg tablet Take 40 mg by mouth daily at bedtime. - nitroglycerin sublingual (NITROSTAT) 0.4 mg SL tablet Dissolve 0.4 mg under the tongue every 5 minutes as needed. Facility-Administered Medications as of 09/24/2023 - ferric derisomaltose 1,000 mg in NaCl 0.9% 100 mL (MONOFERRIC) - NaCl 0.9% iv infusion - diphenhydrAMINE 50 mg injection (BENADRYL) - hydrocortisone sodium succinate (PF) 100 mg injection (Solu-CORTEF) - EPINEPHrine 1 mg/mL (1 mL) 0.3 mg injection - sodium chloride 0.9 % (flush) 10-20 mL (BD POSIFLUSH) - sodium chloride 0.9 % (flush) 10-20 mL (BD POSIFLUSH) Problem List As Of Date 09/24/2023 Noted Resolved Duodenal obstruction [K31.5] 08/13/2017 Severe protein-calorie malnutrition (HCC) [E43] 08/14/2017 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] 09/15/2017 Adenocarcinoma (HCC) [C80.1] 11/06/2017 Abnormal weight loss [R63.4] 03/26/2018 Anemia due to vitamin B12 deficiency [D51.9] 04/08/2018 Macrocytosis [D75.89] 02/13/2022 Iron deficiency anemia secondary to inadequate *09/10/2023 Encounter Status:[facility] ROCIO JACKSON ([id number]) 1955 M Date Time Provider Department 09/10/23 2:30 PM MELANI NURSE [place] POOL During your visit today, we recorded the following information about you: Livier Seay 09/10/2023 2:32 PM Signed Patient Identification confirmed: yes. Injection given and documented on AUG per provider order. Livier Seay Referring Provider: ZAHRA MAY [[id number]] Allergies As of Date: 09/10/2023 (No Known Allergies) Date Reviewed: 09/10/2023 Reviewed by: Srinivasan See Ma - Fully Assessed Reason for Visit: Macrocytosis [Other] Primary Visit Diagnosis:Macrocytosis [D75.89] Other Visit Diagnoses:Abnormal weight loss [R63.4] Adenocarcinoma (HCC) [C80.1] 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] Order(s):[] cyanocobalamin 1,000 mcg injectionDisp: Rfl: Prescriptions as of 09/10/2023 - tbehkf-khsuroni-rxbcjqm (ZENPEP) 25,000-79,000- 105,000 unit delayed release capsule Take 2 capsules by mouth three times a day with meals. - metoclopramide HCl (REGLAN) 10 mg tablet Take 1 tablet by mouth three times a day with meals. - eoubqa-qsoudeil-qlsbnak (CREON 24) 24,000-76,000 -120,000 unit delayed release capsule Take 2 capsules by mouth three times a day with meals. - folic acid 1 mg tablet Take 1 tablet by mouth once daily. - Cholestyramine-Aspartame (CHOLESTYRAMINE LIGHT) 4 gram powder Take 4 g by mouth three times daily with meals. - glipiZIDE (GLUCOTROL) 5 mg tablet Take 5 mg by mouth twice daily before meals. - JARDIANCE 25 mg tablet - ELIQUIS 2.5 mg tab tab(s) Take 2.5 mg by mouth twice daily. - venlafaxine ER (EFFEXOR XR) 75 mg 24 hr capsule TAKE 1 CAPSULE BY MOUTH ONE TIME A DAY - metoprolol succinate ER (TOPROL XL) 25 mg 24 hr tablet Take 25 mg by mouth once daily. - ALPRAZolam (XANAX) 0.25 mg tablet Take 0.25 mg by mouth as needed. - FLUoxetine HCl (PROZAC) 40 mg capsule Take 40 mg by mouth twice daily. - acetaminophen (TYLENOL) 650 mg/20.3 mL soln Take 20.3 mL by mouth every 6 hours as needed. - atorvastatin (LIPITOR) 40 mg tablet Take 40 mg by mouth daily at bedtime. - nitroglycerin sublingual (NITROSTAT) 0.4 mg SL tablet Dissolve 0.4 mg under the tongue every 5 minutes as needed. Problem List As Of Date 09/10/2023 Noted Resolved Duodenal obstruction [K31.5] 08/13/2017 Severe protein-calorie malnutrition (HCC) [E43] 08/14/2017 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] 09/15/2017 Adenocarcinoma (HCC) [C80.1] 11/06/2017 Abnormal weight loss [R63.4] 03/26/2018 Anemia due to vitamin B12 deficiency [D51.9] 04/08/2018 Macrocytosis [D75.89] 02/13/2022 Iron deficiency anemia secondary to inadequate *09/10/2023 Visit Notes: >> Livier Seay [facility] Sep 10, 2023 2:30 PM Status: Signed Patient Identification confirmed: yes. Injection given and documented on AUG per provider order. Livier Seay Prescriptions ordered this encounter Disp Refills Start End CYANOCOBALAMIN (VIT B-12) 1,000 MCG/* 09/10/2023 09/10/2023 Route: INTRAMUSCULA Encounter Status:Closed by LIVIER SEAY on 09/10/23 [facility] CNOVSPon 09-10-2023 OVS Visit (SP) Office (H EMA) ROCIO JACKSON ([id number]) 1955 M Date Time Provider Department 09/10/23 2:15 PM ZAHRA MAY During your visit today, we recorded the following information about you: Temperature Pulse Respiration Blood pressure 97.1 degrees 83/minute 16/minute 113/69 Height 1.708 m Rona Thomas 09/10/2023 2:12 PM Signed B12 shot today and every 4 weeks. IV iron when approved (previously received Monoferric) Patient will continue folic acid 1 mg daily as Rx'd. continue following with Dr. Caputo for DMII management. RTC in 3 months Labs [address] scans in 6 months Zahra May MD 09/10/2023 9:16 PM Signed NAME: Renetta Rocio CLINIC NO.: [id number] DATE OF SERVICE: September 10, 2023 (Iftikhar) Some elements in this clinic note that are critical to medical decision making have been carefully reviewed and included from a prior clinic note dated: March 11, 2023 (Iftikhar) Referring Provider: Dr. Vanessa Bejarano Additional Clinicians involved in Rocio Jackson's care: Dr. David Caputo CC: Follow up on anemia. 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 H/O iron deficiency anemia 3. Folate deficiency anemia 4. B12 deficiency anemia ASSESSMENT: Cancer of ampulla of Vater [...] Doing well on B12 and folate replacement. No evidence of recurrence. PLAN: B12 shot today and every 4 weeks. IV iron when approved (previously received Monoferric) Patient will continue folic acid 1 mg daily as Rx'd. continue following with Dr. Caputo for DMII management. RTC in 3 months Labs [address] scans in 6 months - HPI: CASE HISTORY: Reverse Chronological Order 09/03/2023 - CT CAP: Chest: Persistent elevation of the right hemidiaphragm. Adjacent compression atelectasis in the right lung field, increased since 03/11/23. Interval resolution of previously noted patchy opacity in the lingula. Otherwise no evidence of intrathoracic metastases. A/P: Mild mesenteric mesenteric lymphadenopathy, increased since 03/11/23. Prominent motion artifact. 03/11/2023 - PET/CT: HEAD and NECK: No evidence of focal uptake to suggest FDG avid neoplastic process.. CHEST: Focal airspace opacity and groundglass nodule in the left lung base with mild FDG uptake, probably inflammatory in nature. Follow-up is recommended. ABDOMEN/PELVIS: No evidence of focal uptake to suggest FDG avid neoplastic process. Probably postsurgical inflammation in abdomen. EXTREMITIES/SKELETON: No evidence of focal uptake to suggest FDG avid neoplastic process.. 03/2022 - IV iron 02/06/2022 - CT chest abdomen and pelvis with IV contrast: Chest: New reticulonodular opacities in the right upper lobe most likely infectious/inflammatory in etiology. Marked motion artifact. Findings compatible with previous granulomatous disease. A/P: Nonspecific borderline mesenteric lymphadenopathy, stable since 02/20/20. New trace pelvic ascites. Nonspecific persistent diffuse thickening of the urinary bladder wall. Stool is noted throughout the colon.Prominent motion artifact. 08/15/2019 - CT chest abdomen and pelvis with IV contrast: Chest: Several mildly prominent central mesenteric lymph nodes are again identified, stable from the prior examination of 12/21/2018. Postoperative changes, compatible with prior Whipple's procedure. No CT evidence for recurrent mass. A/P: There has been interval development of minimal patchy groundglass opacity, as well as a small consolidative opacity within the left lingula, likely infectious/inflammatory nature. 2. No suspicious pulmonary nodule is appreciated. No substantial intrathoracic adenopathy is identified. Evidence for prior granulomatous disease. 12/21/2018 - CT CAP: Stable CT examination of the chest as above. Several mildly prominent central mesenteric lymph nodes are again identified, less conspicuo (more content not included)... [facility] ROCIO JACKSON ([id number]) 1955 M Date Time Provider Department 09/10/23 IMELDA REYNOLDS [facility] During your visit today, we recorded the following information about you: Imelda Reynolds johnathan 09/10/2023 9:30 AM Signed Approved for free Creon until 06/28/2024. Patient should receive shipment in 5-7 business days. Artur Reynolds, CarolynD, BCOP Allergies As of Date: 09/10/2023 (No Known Allergies) Date Reviewed: 06/23/2023 Reviewed by: Rola Gordon APRN.[facility] - Fully Assessed Reason for Visit: Medication Authorization [1699] Prescriptions as of 09/10/2023 - yhfqha-clfpujsq-jwkseyi (ZENPEP) 25,000-79,000- 105,000 unit delayed release capsule Take 2 capsules by mouth three times a day with meals. - metoclopramide HCl (REGLAN) 10 mg tablet Take 1 tablet by mouth three times a day with meals. - hukbfz-vcmtpmey-kbnqhmj (CREON 24) 24,000-76,000 -120,000 unit delayed release capsule Take 2 capsules by mouth three times a day with meals. - folic acid 1 mg tablet Take 1 tablet by mouth once daily. - Cholestyramine-Aspartame (CHOLESTYRAMINE LIGHT) 4 gram powder Take 4 g by mouth three times daily with meals. - glipiZIDE (GLUCOTROL) 5 mg tablet Take 5 mg by mouth twice daily before meals. - JARDIANCE 25 mg tablet - ELIQUIS 2.5 mg tab tab(s) Take 2.5 mg by mouth twice daily. - venlafaxine ER (EFFEXOR XR) 75 mg 24 hr capsule TAKE 1 CAPSULE BY MOUTH ONE TIME A DAY - metoprolol succinate ER (TOPROL XL) 25 mg 24 hr tablet Take 25 mg by mouth once daily. - ALPRAZolam (XANAX) 0.25 mg tablet Take 0.25 mg by mouth as needed. - FLUoxetine HCl (PROZAC) 40 mg capsule Take 40 mg by mouth twice daily. - acetaminophen (TYLENOL) 650 mg/20.3 mL soln Take 20.3 mL by mouth every 6 hours as needed. - atorvastatin (LIPITOR) 40 mg tablet Take 40 mg by mouth daily at bedtime. - nitroglycerin sublingual (NITROSTAT) 0.4 mg SL tablet Dissolve 0.4 mg under the tongue every 5 minutes as needed. Problem List As Of Date 09/10/2023 Noted Resolved Duodenal obstruction [K31.5] 08/13/2017 Severe protein-calorie malnutrition (HCC) [E43] 08/14/2017 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] 09/15/2017 Adenocarcinoma (HCC) [C80.1] 11/06/2017 Abnormal weight loss [R63.4] 03/26/2018 Anemia due to vitamin B12 deficiency [D51.9] 04/08/2018 Macrocytosis [D75.89] 02/13/2022 Encounter Status:Closed by IMELDA REYNOLDS on 09/10/23 Normal [facility] CA 19-9 BLDon 09-04-2023 Cancer Ag 19-9 Qn 8.0 [arb'U]/mL NINF - 36.0 U/mL [facility] Comment on above: Cancer antigen 19-9 test is used as an aid in monitoring response to treatment or recurrence in patients with established pancreatic, hepatobiliary, or gastrointestinal malignancies. Clinical correlation is required. The CA 19-9 Antigen test was performed using the [employer] DXI paramagnetic particle chemiluminescent immunoassay method. Results obtained with different assay methods or kits cannot be used interchangeably. Cancer Ag 19-9 Qnon 09-04-19 Interpretation and review of laboratory results Normal [facility] Cobalamin (Vitamin B12) [Mas s/Vol]on 09-04-2023 Interpretation and review of laboratory results Normal [facility] FERRITIN BLDon 09-04-2023 Ferritin [Mass/Vol] 314.0 ng/mL 30.3 - 565.7 ng/mL [facility] Ferritin [Mass/Vol]on 2023 Interpretation and review of laboratory results Normal [facility] Iron and Iron binding capaci ty panelon 09-04-2023 Interpretation and review of laboratory results Abnormal [facility] Iron [Mass/Vol] 27 ug/dL Low 41 - 186 ug/dL [facility] Iron binding capacity [Mass/Vol] 254 ug/dL 232 - 386 ug/dL [facility] Iron/TIBC [Molar ratio] 10.6 % Low 15.0 - 57.0 % [facility] VITAMIN B12 BLOODon 09-04-19 Cobalamin (Vitamin B12) [Mass/Vol] 758 pg/mL 232 - 1245 pg/mL [facility] Basophils Auto (Bld) [#/Vol] on 09-03-2023 Basophils (Bld) [#/Vol] 10*3/uL <0.11 [facility] Basophils/100 WBC Auto (Bld) on 09-03-2023 Basophils/100 WBC (Bld) 0.2 % [facility] Blood manual differential co mment interpretation narrativeon 09-03-2023 Manual differential comment Evgeny (Bld) [Interp] Auto [facility] CBC W Auto Differential pane l (Bld)on 09-03-2023 Basophils (Bld) [#/Vol] NINF [facility] Basophils/100 WBC (Bld) 0.2 % [facility] Differential cell count method Nom (Bld) Auto [facility] Eosinophils (Bld) [#/Vol] 0.22 10*3/uL [facility] Eosinophils/100 WBC (Bld) 2.1 % [facility] Erythrocyte distribution width (RBC) [Ratio] 15.4 % High 11.5 - 15.0 % [facility] Hematocrit (Bld) [Volume fraction] 37.5 % Low 39.0 - 51.0 % [facility] Hemoglobin (Bld) [Mass/Vol] 12.0 g/dL Low 13.0 - 17.0 g/dL [facility] Immature granulocytes (Bld) [#/Vol] 0.03 10*3/uL [facility] Immature granulocytes/100 WBC (Bld) 0.3 % [facility] Interpretation and review of laboratory results Abnormal [facility] Lymphocytes (Bld) [#/Vol] 1.43 10*3/uL [facility] Lymphocytes/100 WBC (Bld) 13.7 % [facility] MCH (RBC) [Entitic mass] 31.1 pg 26.0 - 34.0 pg [facility] MCHC (RBC) [Mass/Vol] 32.0 g/dL 30.5 - 36.0 g/dL [facility] MCV (RBC) [Entitic vol] 97.2 fL 80.0 - 100.0 fL [facility] Monocytes (Bld) [#/Vol] 0.46 10*3/uL [facility] Monocytes/100 WBC (Bld) 4.4 % [facility] Neutrophils (Bld) [#/Vol] 8.27 10*3/uL High [facility] Neutrophils/100 WBC (Bld) 79.3 % [facility] Nucleated RBC (Bld) [#/Vol] [facility] Nucleated RBC/100 WBC (Bld) [Ratio] 0.0 % /100 WBC [facility] Platelet mean volume (Bld) [Entitic vol] 9.2 fL 9.0 - 12.7 fL [facility] Platelets (Bld) [#/Vol] 359 10*3/uL [facility] RBC (Bld) [#/Vol] 3.86 10*6/uL Low 4.20 - 6.00 m/uL [facility] WBC (Bld) [#/Vol] 10.43 10*3/uL [facility] Basophils (Bld) [#/Vol] 10*3/uL Normal <0.11 [facility] Comment on above: Order Comment: Speci men Type: BLOOD SPECIMEN Ordering Facility: [facility] Address: [address] [place] [address] Performed By: #### 2 1810-3 #### [facility] CLIA [id number] [address] [place] [address] [place] Basophils/100 WBC (Bld) 0.2 % Normal [facility] Comment on above: Order Comment: Speci men Type: BLOOD SPECIMEN Ordering Facility: [facility] Address: [address] [place] [address] Performed By: #### 2 4108-3 #### [facility] CLIA [id number] [address] [place] [address] [place] Differential cell count method Nom (Bld) Auto Normal [facility] Comment on above: Order Comment: Speci men Type: BLOOD SPECIMEN Ordering Facility: [facility] Address: [address] [place] [address] Performed By: #### 2 4108-3 #### [facility] CLIA [id number] [address] [place] [address] [place] Eosinophils (Bld) [#/Vol] 0.22 10*3/uL Normal <0.46 [facility] Comment on above: Order Comment: Speci men Type: BLOOD SPECIMEN Ordering Facility: [facility] Address: [address] [place] [address] Performed By: #### 2 4108-3 #### [facility] CLIA [id number] [address] [place] [address] [place] Eosinophils/100 WBC (Bld) 2.1 % Normal [facility] Comment on above: Order Comment: Speci men Type: BLOOD SPECIMEN Ordering Facility: [facility] Address: [address] [place] [address] Performed By: #### 2 4108-3 #### [facility] CLIA [id number] [address] [place] [address] [place] Erythrocyte distribution width (RBC) [Ratio] 15.4 % High 11.5-15.0 [facility] Comment on above: Order Comment: Speci men Type: BLOOD SPECIMEN Ordering Facility: [facility] Address: [address] [place] [address] Performed By: #### 2 4108-3 #### [facility] CLIA [id number] [address] [place] [address] [place] Hematocrit (Bld) [Volume fraction] 37.5 % Low 39.0-51.0 [facility] Comment on above: Order Comment: Speci men Type: BLOOD SPECIMEN Ordering Facility: [facility] Address: [address] [place] [address] Performed By: #### 2 4108-3 #### [facility] CLIA [id number] [address] [place] [address] [place] Hemoglobin (Bld) [Mass/Vol] 12.0 g/dL Low 13.0-17.0 [facility] Comment on above: Order Comment: Speci men Type: BLOOD SPECIMEN Ordering Facility: [facility] Address: [address] [place] [address] Performed By: #### 2 4108-3 #### [facility] CLIA [id number] [address] [place] [address] [place] Immature granulocytes (Bld) [#/Vol] 0.03 10*3/uL Normal <0.10 [facility] Comment on above: Order Comment: Speci men Type: BLOOD SPECIMEN Ordering Facility: [facility] Address: [address] [place] [address] Performed By: #### 2 4108-3 #### [facility] CLIA [id number] [address] [place] [address] [place] Immature granulocytes/100 WBC (Bld) 0.3 % Normal [facility] Comment on above: Order Comment: Speci men Type: BLOOD SPECIMEN Ordering Facility: [facility] Address: [address] [place] [address] Performed By: #### 2 4108-3 #### [facility] CLIA [id number] [address] [place] [address] [place] Lymphocytes (Bld) [#/Vol] 1.43 10*3/uL Normal 1.00-4.00 [facility] Comment on above: Order Comment: Speci men Type: BLOOD SPECIMEN Ordering Facility: [facility] Address: [address] [place] [address] Performed By: #### 2 4108-3 #### [facility] CLIA [id number] [address] [place] [address] [place] Lymphocytes/100 WBC (Bld) 13.7 % Normal [facility] Comment on above: Order Comment: Speci men Type: BLOOD SPECIMEN Ordering Facility: [facility] Address: [address] [place] [address] Performed By: #### 2 4108-3 #### [facility] CLIA [id number] [address] [place] [address] [place] MCH (RBC) [Entitic mass] 31.1 pg Normal 26.0-34.0 [facility] Comment on above: Order Comment: Speci men Type: BLOOD SPECIMEN Ordering Facility: [facility] Address: [address] [place] [address] Performed By: #### 2 4108-3 #### [facility] CLIA [id number] [address] [place] [address] [place] MCHC (RBC) [Mass/Vol] 32.0 g/dL Normal 30.5-36.0 [facility] Comment on above: Order Comment: Speci men Type: BLOOD SPECIMEN Ordering Facility: [facility] Address: [address] [place] [address] Performed By: #### 2 4108-3 #### [facility] CLIA [id number] [address] [place] [address] [place] MCV (RBC) [Entitic vol] 97.2 fL Normal 80.0-100.0 [facility] Comment on above: Order Comment: Speci men Type: BLOOD SPECIMEN Ordering Facility: [facility] Address: [address] [place] [address] Performed By: #### 2 4108-3 #### [facility] CLIA [id number] [address] [place] [address] [place] Monocytes (Bld) [#/Vol] 0.46 10*3/uL Normal <0.87 [facility] Comment on above: Order Comment: Speci men Type: BLOOD SPECIMEN Ordering Facility: [facility] Address: [address] [place] [address] Performed By: #### 2 4108-3 #### [facility] CLIA [id number] [address] [place] [address] [place] Monocytes/100 WBC (Bld) 4.4 % Normal [facility] Comment on above: Order Comment: Speci men Type: BLOOD SPECIMEN Ordering Facility: [facility] Address: [address] [place] [address] Performed By: #### 2 4108-3 #### [facility] CLIA [id number] [address] [place] [address] [place] Neutrophils (Bld) [#/Vol] 8.27 10*3/uL High 1.45-7.50 [facility] Comment on above: Order Comment: Speci men Type: BLOOD SPECIMEN Ordering Facility: [facility] Address: [address] [place] [address] Performed By: #### 2 4108-3 #### [facility] CLIA [id number] [address] [place] [address] [place] Neutrophils/100 WBC (Bld) 79.3 % Normal [facility] Comment on above: Order Comment: Speci men Type: BLOOD SPECIMEN Ordering Facility: [facility] Address: [address] [place] [address] Performed By: #### 2 4108-3 #### [facility] CLIA [id number] [address] [place] [address] [place] Nucleated RBC (Bld) [#/Vol] 10*3/uL Normal <0.01 [facility] Comment on above: Order Comment: Speci men Type: BLOOD SPECIMEN Ordering Facility: [facility] Address: [address] [place] [address] Performed By: #### 2 4108-3 #### [facility] CLIA [id number] [address] [place] [address] [place] Nucleated RBC/100 WBC (Bld) [Ratio] 0.0 /100 WBC Normal [facility] Comment on above: Order Comment: Speci men Type: BLOOD SPECIMEN Ordering Facility: [facility] Address: [address] [place] [address] Performed By: #### 2 4108-3 #### [facility] CLIA [id number] [address] [place] [address] [place] Platelet mean volume (Bld) [Entitic vol] 9.2 fL Normal 9.0-12.7 [facility] Comment on above: Order Comment: Speci men Type: BLOOD SPECIMEN Ordering Facility: [facility] Address: [address] [place] [address] Performed By: #### 2 4108-3 #### [facility] CLIA [id number] [address] [place] [address] [place] Platelets (Bld) [#/Vol] 359 10*3/uL Normal 150-400 [facility] Comment on above: Order Comment: Speci men Type: BLOOD SPECIMEN Ordering Facility: [facility] Address: [address] [place] [address] Performed By: #### 2 4108-3 #### [facility] CLIA [id number] [address] [place] [address] [place] RBC (Bld) [#/Vol] 3.86 10*6/uL Low 4.20-6.00 [facility] Comment on above: Order Comment: Speci men Type: BLOOD SPECIMEN Ordering Facility: [facility] Address: [address] [place] [address] Performed By: #### 2 4108-3 #### [facility] CLIA [id number] [address] [place] [address] [place] WBC (Bld) [#/Vol] 10.43 10*3/uL Normal 3.70-11.00 [facility] Comment on above: Order Comment: Speci men Type: BLOOD SPECIMEN Ordering Facility: [facility] Address: [address] [place] [address] Performed By: #### 2 4108-3 #### [facility] CLIA [id number] [address] [place] [address] [place] CT ABD/PEL W IVCONon 024 CT ABD/PEL W IVCON * * *Final Report* * * DATE OF EXAM: Sep 03 2023 2:31PM [facility] 0530 - CT ABD/PEL W IVCON / PROCEDURE REASON: multiple diagnoses * * * * Physician Interpretation * * * * RESULT: EXAMINATION: CT ABDOMEN AND PELVIS WITH IV CONTRAST CLINICAL HISTORY: Pancreatic cancer TECHNIQUE: CT of the abdomen and pelvis was performed using standard technique, scanning from just above the dome of the diaphragm to the symphysis pubis. MQ: CTAP_3 Contrast: IV: 100 ml of Omnipaque 300 Oral: 500 ml of Omni 240 10-25ml diluted with water CT Radiation dose: Integrated Dose-length product (DLP) for this visit = mGy*cm. CT Dose Reduction Employed: Automated exposure control (AEC) COMPARISON: PET/CT scan dated 03/11/23 from [facility] and CT abdomen/pelvis dated 01/20/23 from an outside institution RESULT: Motion artifact. Liver: No evidence of a suspicious enhancing hepatic mass. Biliary: Pneumobilia. Gallbladder is absent. Spleen: No mass. No splenomegaly. 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 A pancreatic duct stent is again noted. Adrenals: No mass. Kidneys: No mass, calculus or hydronephrosis. GI tract: No dilation or wall thickening. Stool is noted throughout the colon. Lymph nodes: Mild mesenteric lymphadenopathy measuring up to 1.2 short axis (2:84, 89), previously 0.7 cm, increased. Mesentery/Peritoneum: No ascites or mass. Retroperitoneum: No mass. Vasculature: The celiac axis and SMA are patent. The portal vein and branches, splenic vein, SMV, and hepatic veins are patent. Arterial atherosclerotic disease without aneurysm. Pelvis: No evidence of ascites. Urinary bladder is decompressed. Bilateral hydroceles, partially visualized. Bones/Soft Tissues: No new osseous abnormalities. Lower thorax: A chest CT performed will be reported separately. Yarder Engineer (topogram) images: No additional findings. IMPRESSION: 1. Mild mesenteric mesenteric lymphadenopathy, increased since 03/11/23. 2. Prominent motion artifact. Transcribe Date/Time: Sep 03 2023 5:28P Dictated by: BRIA CHAVEZ MD This examination was interpreted and the report reviewed and electronically signed by: BRIA CHAVEZ MD on Sep 03 2023 5:42PM EST Thank you for allowing us to participate in the care of your patient. Should there be any questions regarding this interpretation, please call [phone]. If you are unable to reach us at the number above, please feel free to contact [facility] at [phone]. [id number] Normal [facility] CT Abdomen and Pelvis W cont rast Petty 09-03-2023 IMPRESSION: 1. Mild mesenteric mesenteric lymphadenopathy, increased since 03/11/23. 2. Prominent motion artifact. Transcribe Date/Time: Sep 03 2023 5:28P Dictated by: BRIA CHAVEZ MD This examination was interpreted and the report reviewed and electronically signed by: BRIA CHAVEZ MD on Sep 03 2023 5:42PM EST Thank you for allowing us to participate in the care of your patient. Should there be any questions regarding this interpretation, please call [phone]. If you are unable to reach us at the number above, please feel free to contact [facility] at [phone]. DIVISION OF RADIOLOGY * * *Final Report* * * DATE OF EXAM: Sep 03 2023 2:31PM [facility] 0530 - CT ABD/PEL W IVCON / PROCEDURE REASON: multiple diagnoses * * * * Physician Interpretation * * * * RESULT: EXAMINATION: CT ABDOMEN AND PELVIS WITH IV CONTRAST CLINICAL HISTORY: Pancreatic cancer TECHNIQUE: CT of the abdomen and pelvis was performed using standard technique, scanning from just above the dome of the diaphragm to the symphysis pubis. MQ: CTAP_3 Contrast: IV: 100 ml of Omnipaque 300 Oral: 500 ml of Omni 240 10-25ml diluted with water CT Radiation dose: Integrated Dose-length product (DLP) for this visit = mGy*cm. CT Dose Reduction Employed: Automated exposure control (AEC) COMPARISON: PET/CT scan dated 03/11/23 from [facility] and CT abdomen/pelvis dated 01/20/23 from an outside institution RESULT: Motion artifact. Liver: No evidence of a suspicious enhancing hepatic mass. Biliary: Pneumobilia. Gallbladder is absent. Spleen: No mass. No splenomegaly. 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 A pancreatic duct stent is again noted. Adrenals: No mass. Kidneys: No mass, calculus or hydronephrosis. GI tract: No dilation or wall thickening. Stool is noted throughout the colon. Lymph nodes: Mild mesenteric lymphadenopathy measuring up to 1.2 short axis (2:84, 89), previously 0.7 cm, increased. Mesentery/Peritoneum: No ascites or mass. Retroperitoneum: No mass. Vasculature: The celiac axis and SMA are patent. The portal vein and branches, splenic vein, SMV, and hepatic veins are patent. Arterial atherosclerotic disease without aneurysm. Pelvis: No evidence of ascites. Urinary bladder is decompressed. Bilateral hydroceles, partially visualized. Bones/Soft Tissues: No new osseous abnormalities. Lower thorax: A chest CT performed will be reported separately. Yarder Engineer (topogram) images: No additional findings. DIVISION OF RADIOLOGY Provider, [facility] - 09/03/2023 * * *Final Report* * * DATE OF EXAM: Sep 03 2023 2:31PM [facility] 0530 - CT ABD/PEL W IVCON / PROCEDURE REASON: multiple diagnoses * * * * Physician Interpretation * * * * RESULT: EXAMINATION: CT ABDOMEN AND PELVIS WITH IV CONTRAST CLINICAL HISTORY: Pancreatic cancer TECHNIQUE: CT of the abdomen and pelvis was performed using standard technique, scanning from just above the dome of the diaphragm to the symphysis pubis. MQ: CTAP_3 Contrast: IV: 100 ml of Omnipaque 300 Oral: 500 ml of Omni 240 10-25ml diluted with water CT Radiation dose: Integrated Dose-length product (DLP) for this visit = mGy*cm. CT Dose Reduction Employed: Automated exposure control (AEC) COMPARISON: PET/CT scan dated 03/11/23 from [facility] and CT abdomen/pelvis dated 01/20/23 from an outside institution RESULT: Motion artifact. Liver: No evidence of a suspicious enhancing hepatic mass. Biliary: Pneumobilia. Gallbladder is absent. Spleen: No mass. No splenomegaly. 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 A pancreatic duct stent is again noted. Adrenals: No mass. Kidneys: No mass, calculus or hydronephrosis. GI tract: No dilation or wall thickening. Stool is noted throughout the colon. Lymph nodes: Mild mesenteric lymphadenopathy measuring up to 1.2 short axis (2:84, 89), previously 0.7 cm, increased. Mesentery/Peritoneum: No ascites or mass. Retroperitoneum: No mass. Vasculature: The celiac axis and SMA are patent. The portal vein and branches, splenic vein, SMV, and hepatic veins are patent. Arterial atherosclerotic disease without aneurysm. Pelvis: No evidence of ascites. Urinary bladder is decompressed. Bilateral hydroceles, partially visualized. Bones/Soft Tissues: No new osseous abnormalities. Lower thorax: A chest CT performed will be reported separately. Yarder Engineer (topogram) images: No additional findings. IMPRESSION IMPRESSION: 1. Mild mesenteric mesenteric lymphadenopathy, increased since 03/11/23. 2. Prominent motion artifact. Transcribe Date/Time: Sep 03 2023 5:28P Dictated by: BRIA CHAVEZ MD This examination was interpreted and the report reviewed and electronically signed by: BRIA CHAVEZ MD on Sep 03 2023 5:42PM EST Thank you for allowing us to participate in the care of your patient. Should there be any questions regarding this interpretation, please call [phone]. If you are unable to reach us at the number above, please feel free to contact [facility] at [phone]. [facility] CT Abdomen and Pelvis W cont rast IVOrdered By: [facility] Provider on 09-03-[address] [facility] [address] CHEST W IVCONon CT CHEST W IVCON * * *Final Report* * * DATE OF EXAM: Sep 03 2023 2:31PM [facility] 0539 - CT CHEST W IVCON / PROCEDURE REASON: multiple diagnoses * * * * Physician Interpretation * * * * RESULT: EXAMINATION: CHEST CT WITH CONTRAST CLINICAL HISTORY: Gallbladder/biliary cancer, monitor Technique: Spiral CT acquisition of the chest from the thoracic inlet to the upper abdomen following IV contrast. MQ: CTCW_6 Contrast: 100 mL Omnipaque [address] Radiation dose: Integrated Dose-length product (DLP) for this visit = 461 mGy*cm CT Dose Reduction Employed: Automated exposure control (AEC) Comparison: PET/CT scan dated 03/11/23 from [facility]; CT chest dated 01/19/23 RESULT: Limitations: Marked motion artifact is noted. Lines, tubes, and devices: None. Lung parenchyma and pleura: Elevation of the right hemidiaphragm again noted. Increased adjacent adjacent compression atelectasis. Interval resolution of previously noted patchy opacity in the lingula. Calcified granulomas are noted. No pleural effusion. Central airways are patent. Thoracic inlet, heart, and mediastinum: Calcified mediastinal lymph nodes are identified. No evidence of enlarged noncalcified mediastinal lymph nodes. The thoracic aorta and main pulmonary artery are normal in caliber. The cardiac chambers are normal in size. Atherosclerotic coronary artery calcifications are noted. No pericardial effusion or thickening. Bones and soft tissues: Bone islands are noted in the T6 vertebral body and left glenoid process, stable. No new osseous abnormalities. Upper abdomen: Please refer to the abdomen CT scan report for the abdomen findings. IMPRESSION: 1. Persistent elevation of the right hemidiaphragm. 2. Adjacent compression atelectasis in the right lung field, increased since 03/11/23. 3. Interval resolution of previously noted patchy opacity in the lingula. 4. Otherwise no evidence of intrathoracic metastases. Transcribe Date/Time: Sep 03 2023 5:18P Dictated by: BRIA CHAVEZ MD This examination was interpreted and the report reviewed and electronically signed by: BRIA CHAVEZ MD on Sep 03 2023 5:41PM EST Thank you for allowing us to participate in the care of your patient. Should there be any questions regarding this interpretation, please call [phone]. If you are unable to reach us at the number above, please feel free to contact [facility]Radiology at [phone]. [id number] Normal [facility] CT Chest W contrast Petty IMPRESSION: 1. Persistent elevation of the right hemidiaphragm. 2. Adjacent compression atelectasis in the right lung field, increased since 03/11/23. 3. Interval resolution of previously noted patchy opacity in the lingula. 4. Otherwise no evidence of intrathoracic metastases. Transcribe Date/Time: Sep 03 2023 5:18P Dictated by: BRIA CHAVEZ MD This examination was interpreted and the report reviewed and electronically signed by: BRIA CHAVEZ MD on Sep 03 2023 5:41PM EST Thank you for allowing us to participate in the care of your patient. Should there be any questions regarding this interpretation, please call [phone]. If you are unable to reach us at the number above, please feel free to contact [facility]Radiology at [phone]. DIVISION OF RADIOLOGY * * *Final Report* * * DATE OF EXAM: Sep 03 2023 2:31PM [facility] 0539 - CT CHEST W IVCON / PROCEDURE REASON: multiple diagnoses * * * * Physician Interpretation * * * * RESULT: EXAMINATION: CHEST CT WITH CONTRAST CLINICAL HISTORY: Gallbladder/biliary cancer, monitor Technique: Spiral CT acquisition of the chest from the thoracic inlet to the upper abdomen following IV contrast. MQ: CTCW_6 Contrast: 100 mL Omnipaque [address] Radiation dose: Integrated Dose-length product (DLP) for this visit = 461 mGy*cm CT Dose Reduction Employed: Automated exposure control (AEC) Comparison: PET/CT scan dated 03/11/23 from [facility]; CT chest dated 01/19/23 RESULT: Limitations: Marked motion artifact is noted. Lines, tubes, and devices: None. Lung parenchyma and pleura: Elevation of the right hemidiaphragm again noted. Increased adjacent adjacent compression atelectasis. Interval resolution of previously noted patchy opacity in the lingula. Calcified granulomas are noted. No pleural effusion. Central airways are patent. Thoracic inlet, heart, and mediastinum: Calcified mediastinal lymph nodes are identified. No evidence of enlarged noncalcified mediastinal lymph nodes. The thoracic aorta and main pulmonary artery are normal in caliber. The cardiac chambers are normal in size. Atherosclerotic coronary artery calcifications are noted. No pericardial effusion or thickening. Bones and soft tissues: Bone islands are noted in the T6 vertebral body and left glenoid process, stable. No new osseous abnormalities. Upper abdomen: Please refer to the abdomen CT scan report for the abdomen findings. DIVISION OF RADIOLOGY Provider, [facility] - 09/03/2023 * * *Final Report* * * DATE OF EXAM: Sep 03 2023 2:31PM [facility] 0539 - CT CHEST W IVCON / PROCEDURE REASON: multiple diagnoses * * * * Physician Interpretation * * * * RESULT: EXAMINATION: CHEST CT WITH CONTRAST CLINICAL HISTORY: Gallbladder/biliary cancer, monitor Technique: Spiral CT acquisition of the chest from the thoracic inlet to the upper abdomen following IV contrast. MQ: CTCW_6 Contrast: 100 mL Omnipaque [address] Radiation dose: Integrated Dose-length product (DLP) for this visit = 461 mGy*cm CT Dose Reduction Employed: Automated exposure control (AEC) Comparison: PET/CT scan dated 03/11/23 from [facility]; CT chest dated 01/19/23 RESULT: Limitations: Marked motion artifact is noted. Lines, tubes, and devices: None. Lung parenchyma and pleura: Elevation of the right hemidiaphragm again noted. Increased adjacent adjacent compression atelectasis. Interval resolution of previously noted patchy opacity in the lingula. Calcified granulomas are noted. No pleural effusion. Central airways are patent. Thoracic inlet, heart, and mediastinum: Calcified mediastinal lymph nodes are identified. No evidence of enlarged noncalcified mediastinal lymph nodes. The thoracic aorta and main pulmonary artery are normal in caliber. The cardiac chambers are normal in size. Atherosclerotic coronary artery calcifications are noted. No pericardial effusion or thickening. Bones and soft tissues: Bone islands are noted in the T6 vertebral body and left glenoid process, stable. No new osseous abnormalities. Upper abdomen: Please refer to the abdomen CT scan report for the abdomen findings. IMPRESSION IMPRESSION: 1. Persistent elevation of the right hemidiaphragm. 2. Adjacent compression atelectasis in the right lung field, increased since 03/11/23. 3. Interval resolution of previously noted patchy opacity in the lingula. 4. Otherwise no evidence of intrathoracic metastases. Transcribe Date/Time: Sep 03 2023 5:18P Dictated by: BRIA CHAVEZ MD This examination was interpreted and the report reviewed and electronically signed by: BRIA CHAVEZ MD on Sep 03 2023 5:41PM EST Thank you for allowing us to participate in the care of your patient. Should there be any questions regarding this interpretation, please call [phone]. If you are unable to reach us at the number above, please feel free to contact [facility]Radiology at [phone]. [facility] Cancer Ag19-9 SerPl-aCncon 0 09-03-2023 Cancer Ag 19-9 Qn 8.0 [arb'U]/mL Normal <36.0 [facility] Comment on above: Order Comment: Speci men Type: BLOOD SPECIMEN Ordering Facility: [facility] Address: [address] [place] [address] Result Comment: [facility] er antigen 19-9 test is used as an aid in monitoring response to treatment or recurrence in patients with established pancreatic, hepatobiliary, or gastrointestinal malignancies. Clinical correlation is required. The CA 19-9 Antigen test was performed using the [employer] DXI paramagnetic particle chemiluminescent immunoassay method. Results obtained with different assay methods or kits cannot be used interchangeably. Performed By: #### 2 4108-3 #### [facility] CLIA [id number] [address] [place] [address] [place] Comprehensive metabolic 2000 panelOrdered By: Cody Bryson on 09-03-2023 Albumin [Mass/Vol] 3.8 g/dL Low 3.9 - 4.9 g/dL [facility] ALP [Catalytic activity/Vol] 126 U/L High 38 - 113 U/L [facility] ALT [Catalytic activity/Vol] 13 U/L 10 - 54 U/L [facility] Anion gap [Moles/Vol] 12 mmol/L 9 - 18 mmol/L [facility] AST [Catalytic activity/Vol] 16 U/L 14 - 40 U/L [facility] Bilirubin [Mass/Vol] 0.3 mg/dL 0.2 - 1 .3 mg/dL [facility] Calcium [Mass/Vol] 9.7 mg/dL 8.5 - 10. 2 mg/dL [facility] Chloride [Moles/Vol] 101 mmol/L 97 - 10 5 mmol/L [facility] CO2 [Moles/Vol] 22 mmol/L 22 - 30 mmol/L [facility] Creatinine [Mass/Vol] 0.58 mg/dL Low 0.73 - 1.22 mg/dL [facility] GFR/1.73 sq M.predicted among non-blacks MDRD (S/P/Bld) [Vol rate/Area] 108 mL/min/{1.73_m2} - PINF [facility] Comment on above: Estimated Glomerular Filtration Rate (eGFR) is calculated using the 2020 CKD-EPI creatinine equation. This equation utilizes serum creatinine, sex, and age as parameters. The creatinine assay has traceable calibration to isotope dilution-mass spectrometry. Refer to KDIGO guidelines for clinical interpretation. In patients with unstable renal function, e.g. those with acute kidney injury, the eGFR may not accurately reflect actual GFR. Glucose [Mass/Vol] 103 mg/dL High 74 - 99 mg/dL [facility] Comment on above: The [place] Diabete s Association (ADA) provides guidance for cutoff values for fasting glucose and random glucose. The ADA defines fasting as no caloric intake for at least 8 hours. Fasting plasma glucose results between 100 to 125 mg/dL indicate increased risk for diabetes (prediabetes). Fasting plasma glucose results greater than or equal to 126 mg/dL meet the criteria for diagnosis of diabetes. In the absence of unequivocal hyperglycemia, results should be confirmed by repeat testing. In a patient with classic symptoms of hyperglycemia or hyperglycemic crisis, random plasma glucose results greater than or equal to 200 mg/dL meet the criteria for diagnosis of diabetes. Reference: Standards of Medical Care in Diabetes 2016, [place] [employer]. Diabetes Care. 2016.39(Suppl 1). Interpretation and review of laboratory results Abnormal [facility] Potassium [Moles/Vol] 4.8 mmol/L 3.7 - 5.1 mmol/L [facility] Protein [Mass/Vol] 7.4 g/dL 6.3 - 8.0 g/dL [facility] Sodium [Moles/Vol] 135 mmol/L Low 136 - 144 mmol/L [facility] Urea nitrogen [Mass/Vol] 22 mg/dL 9 - 24 mg/dL [facility] Comprehensive metabolic 2000 panelon 09-03-2023 Albumin [Mass/Vol] 3.8 g/dL Low 3.9-4.9 [facility] Comment on above: Order Comment: Speci men Type: BLOOD SPECIMENOrdering Facility: [facility] Address: [address] [place] [address] Performed By: #### 2 4323-8 ####[facility] [id number] [place] [address] ALP [Catalytic activity/Vol] 126 U/L High 38-113 [facility] Comment on above: Order Comment: Speci men Type: BLOOD SPECIMENOrdering Facility: [facility] Address: [address] [place] [address] Performed By: #### 2 4323-8 ####[facility] [id number] [place] [address] ALT [Catalytic activity/Vol] 13 U/L Normal 10-54 [facility] Comment on above: Order Comment: Speci men Type: BLOOD SPECIMENOrdering Facility: [facility] Address: [address] [place] [address] Performed By: #### 2 4323-8 ####[facility] [id number] [place] [address] Anion gap [Moles/Vol] 12 mmol/L Normal 9-18 [facility] Comment on above: Order Comment: Speci men Type: BLOOD SPECIMENOrdering Facility: [facility] Address: [address] [place] [address] Performed By: #### 2 4323-8 ####[facility] [id number] [place] [address] AST [Catalytic activity/Vol] 16 U/L Normal 14-40 [facility] Comment on above: Order Comment: Speci men Type: BLOOD SPECIMENOrdering Facility: [facility] Address: [address] [place] [address] Performed By: #### 2 4323-8 ####[facility] [id number] [place] [address] Bilirubin [Mass/Vol] 0.3 mg/dL Normal 0.2-1.3 [facility] Comment on above: Order Comment: Speci men Type: BLOOD SPECIMENOrdering Facility: [facility] Address: [address] [place] [address] Performed By: #### 2 4323-8 ####[facility] [id number] [place] [address] Calcium [Mass/Vol] 9.7 mg/dL Normal 8.5-10.2 [facility] Comment on above: Order Comment: Speci men Type: BLOOD SPECIMENOrdering Facility: [facility] Address: [address] [place] [address] Performed By: #### 2 4323-8 ####[facility] [id number] [place] [address] Chloride [Moles/Vol] 101 mmol/L Normal 97-105 [facility] Comment on above: Order Comment: Speci men Type: BLOOD SPECIMENOrdering Facility: [facility] Address: [address] [place] [address] Performed By: #### 2 4323-8 ####[facility] [id number] [place] [address] CO2 [Moles/Vol] 22 mmol/L Normal 22-30 [facility] Comment on above: Order Comment: Speci men Type: BLOOD SPECIMENOrdering Facility: [facility] Address: [address] [place], [place] [address] Performed By: #### 2 4323-8 ####[facility] [id number] [place] [address] Creatinine [Mass/Vol] 0.58 mg/dL Low 0.73-1.22 [facility] Comment on above: Order Comment: Frank real Type: BLOOD SPECIMENOrdering Facility: [facility] Address: [address] [place] [address] Performed By: #### 2 4323-8 ####[facility] [id number] [place] [address] Creatinine and Glomerular filtration rate.predicted panel (S/P/Bld) 108 mL/min/1.73m??? Normal >=60 [facility] Comment on above: Order Comment: Frank real Type: BLOOD SPECIMENOrdering Facility: [facility] Address: [address] [place] [address] Result Comment: Megan mated Glomerular Filtration Rate [...] actual GFR. Performed By: #### 2 4323-8 ####[facility] [id number] [place] [address] Glucose [Mass/Vol] 103 mg/dL High 74-99 [facility] Comment on above: Order Comment: Frank real Type: BLOOD SPECIMENOrdering Facility: [facility] Address: [address] [place], [place] [address] Result Comment: The [place] Diabetes Association (ADA) provides guidance for cutoff values for fasting glucose and random glucose. The ADA defines fasting as no caloric intake for at least 8 hours. Fasting plasma glucose results between 100 to 125 mg/dL indicate increased risk for diabetes (prediabetes). Fasting plasma glucose results greater than or equal to 126 mg/dL meet the criteria for diagnosis of diabetes. In the absence of unequivocal hyperglycemia, results should be confirmed by repeat testing. In a patient with classic symptoms of hyperglycemia or hyperglycemic crisis, random plasma glucose results greater than or equal to 200 mg/dL meet the criteria for diagnosis of diabetes. Reference: Standards of Medical Care in Diabetes 2016, [place] [employer]. Diabetes Care. 2016.39(Suppl 1). Performed By: #### 2 4323-8 ####[facility]IA [id number] [place] [address] Potassium [Moles/Vol] 4.8 mmol/L Normal 3.7-5.1 [facility] Comment on above: Order Comment: Speci men Type: BLOOD SPECIMENOrdering Facility: [facility] Address: [address] [place] [address] Performed By: #### 2 4323-8 ####[facility]IA [id number] [place] [address] Protein [Mass/Vol] 7.4 g/dL Normal 6.3-8.0 [facility] Comment on above: Order Comment: Speci men Type: BLOOD SPECIMENOrdering Facility: [facility] Address: [address] [place] [address] Performed By: #### 2 4323-8 ####[facility] [id number] [place] [address] Sodium [Moles/Vol] 135 mmol/L Low 136-144 [facility] Comment on above: Order Comment: Speci men Type: BLOOD SPECIMENOrdering Facility: [facility] Address: [address] [place] [address] Performed By: #### 2 4323-8 ####[facility]IA [id number] [place] [address] Urea nitrogen [Mass/Vol] 22 mg/dL Normal 9-24 [facility] Comment on above: Order Comment: Speci men Type: BLOOD SPECIMENOrdering Facility: [facility] Address: [address] [place] [address] Performed By: #### 2 4323-8 ####[facility] [id number] [place] [address] Eosinophils/100 WBC Auto (Bl d)on 09-03-2023 Eosinophils/100 WBC (Bld) 2.1 % [facility] Erythrocyte distribution wid th Auto (RBC) [Ratio]on 09-03-2023 Erythrocyte distribution width (RBC) [Ratio] 15.4 % 11.5-15.0 [facility] Ferritin SerPl-mCncon 2023 Ferritin [Mass/Vol] 314.0 ng/mL Normal 30.3-565.7 [facility] Comment on above: Order Comment: Speci men Type: BLOOD SPECIMENOrdering Facility: [facility] Address: [address] [place] [address] Performed By: #### 5 0190-8, 2131, 2275-09 ####[facility]CLIA [id number] [place] [address] [place] Hematocrit Auto (Bld) [Volum e fraction]on 09-03-2023 Hematocrit (Bld) [Volume fraction] 37.5 % 39.0-51.0 [facility] Hemoglobin [Mass/volume] in Bloodon 09-03-2023 Hemoglobin (Bld) [Mass/Vol] 12.0 g/dL 13.0-17.0 [facility] Iron and Iron binding capaci ty panelon 09-03-2023 Iron [Mass/Vol] 27 ug/dL Low 41-186 [facility] Comment on above: Order Comment: Speci men Type: BLOOD SPECIMENOrdering Facility: [facility] Address: [address] [place] [address] Performed By: #### 5 0190-8, 2131, 2275-09 ####[facility] LABCLIA [id number] [place] [id number] [place] Iron binding capacity [Mass/Vol] 254 ug/dL Normal 232-386 [facility] Comment on above: Order Comment: Speci men Type: BLOOD SPECIMENOrdering Facility: [facility] Address: [address] [place] [address] Performed By: #### 5 0190-8, 2131-9, 2275-4 ####[facility] LABCLIA [id number] [address] [address] [place] Iron/TIBC [Molar ratio] 10.6 % Low 15.0-57.0 [facility] Comment on above: Order Comment: Speci men Type: BLOOD SPECIMENOrdering Facility: [facility] Address: [address] [place] [id number] Performed By: #### 5 0190-8, 9, 2275-09 ####[facility]CLIA [id number] [place] [id number] [place] Iron binding capacity [Mass/ volume] in Serum or Plasmaon 09-03-2023 Iron binding capacity [Mass/Vol] 254 ug/dL 232-386 [facility] Iron saturation [Mass Fracti on] in Serum or Plasmaon 09-03-2023 Iron saturation [Mass fraction] 10.6 % 15.0-57.0 [facility] - Chemistry and C hemistry - challengeon 09-03-2023 Albumin [Mass/Vol] 3.8 g/dL 3.9-4.9 [facility] ALP [Catalytic activity/Vol] 126 U/L 38-113 [facility] ALT [Catalytic activity/Vol] 13 U/L 10-54 [facility] AST [Catalytic activity/Vol] 16 U/L 14-40 [facility] Bilirubin [Mass/Vol] 0.3 mg/dL 0.2-1.3 [facility] Calcium [Mass/Vol] 9.7 mg/dL 8.5-10.2 [facility] Chloride [Moles/Vol] 101 mmol/L 97-105 [facility] CO2 [Moles/Vol] 22 mmol/L 22-30 [facility] Cobalamin (Vitamin B12) [Mass/Vol] 758 pg/mL 232-1245 [facility] Creatinine [Mass/Vol] 0.58 mg/dL 0.73-1.22 [facility] Ferritin [Mass/Vol] 314.0 ng/mL 30.3-565.7 [facility] Glucose [Mass/Vol] 103 mg/dL 74-99 [facility] Comment on above: The [place] Diabete s Association (ADA) provides guidance for cutoff values [...] Standards of Medical Care in Diabetes 2016, [place] [employer]. Diabetes Care. 2016.39(Suppl 1). Iron [Mass/Vol] 27 ug/dL 41-186 [facility] Potassium [Moles/Vol] 4.8 mmol/L 3.7-5.1 [facility] Sodium [Moles/Vol] 135 mmol/L 136-144 [facility] Urea nitrogen [Mass/Vol] 22 mg/dL 9-24 [facility] - Hematology and Cell countson 09-03-2023 Eosinophils (Bld) [#/Vol] 0.22 10*3/uL <0.46 [facility] Immature granulocytes (Bld) [#/Vol] 0.03 10*3/uL <0.10 [facility] Immature granulocytes/100 WBC (Bld) 0.3 % [facility] Leukocytes [#/volume] correc missael for nucleated erythrocytes in Blood by Automated counon 09-03-2023 WBC corrected for nucl RBC Auto (Bld) [#/Vol] 10.43 k/uL 3.70-11.00 [facility] Lymphocytes Auto (Bld) [#/Vo l]on 09-03-2023 Lymphocytes (Bld) [#/Vol] 1.43 10*3/uL 1.00-4.00 [facility] Lymphocytes/100 WBC Auto (Bl d)on 09-03-2023 Lymphocytes/100 WBC (Bld) 13.7 % [facility] MCH Auto (RBC) [Entitic mass ]on 09-03-2023 MCH (RBC) [Entitic mass] 31.1 pg 26.0-34.0 [facility] MCHC Auto (RBC) [Mass/Vol]on 09-03-2023 MCHC (RBC) [Mass/Vol] 32.0 g/dL 30.5-36.0 [facility] MCV Auto (RBC) [Entitic vol] on 09-03-2023 MCV (RBC) [Entitic vol] 97.2 fL 80.0-100.0 [facility] Monocytes Auto (Bld) [#/Vol] on 09-03-2023 Monocytes (Bld) [#/Vol] 0.46 10*3/uL <0.87 [facility] Monocytes/100 WBC Auto (Bld) on 09-03-2023 Monocytes/100 WBC (Bld) 4.4 % [facility] Neutrophils Auto (Bld) [#/Vo l]on 09-03-2023 Neutrophils (Bld) [#/Vol] 8.27 10*3/uL 1.45-7.50 [facility] Neutrophils/100 WBC Auto (Bl d)on 09-03-2023 Neutrophils/100 WBC (Bld) 79.3 % [facility] No Panel Informationon 09-02 Radiology Study observation (narrative) [facility] Estimated GFR (CKD-EPI) 108 mL/min/1.73m??? >=60 [facility] Comment on above: Estimated Glomerular Filtration Rate (eGFR) is calculated using the 2020 CKD-EPI creatinine equation. This equation utilizes serum creatinine, sex, and age as parameters. The creatinine assay has traceable calibration to isotope dilution-mass spectrometry. Refer to KDIGO guidelines for clinical interpretation. In patients with unstable renal function, e.g. those with acute kidney injury, the eGFR may not accurately reflect actual GFR. Nucleated RBC Auto (Bld) [#/ Vol]on 09-03-2023 Nucleated RBC (Bld) [#/Vol] 10*3/uL <0.01 [facility] Nucleated erythrocytes [Pres ence] in Blood by Automated counton 09-03-2023 Nucleated RBC Auto Ql (Bld) 0.0 /100{WBC} [facility] Platelet mean volume Auto (B ld) [Entitic vol]on 09-03-2023 Platelet mean volume (Bld) [Entitic vol] 9.2 fL 9.0-12.7 [facility] Platelets Auto (Bld) [#/Vol] on 09-03-2023 Platelets (Bld) [#/Vol] 359 10*3/uL 150-400 [facility] Protein [Mass/volume] in Ser um or Plasmaon 09-03-2023 Protein [Mass/Vol] 7.4 g/dL 6.3-8.0 [facility] RBC Auto (Bld) [#/Vol]on RBC (Bld) [#/Vol] 3.86 10*6/uL 4.20-6.00 [facility] Serum or plasma anion gap de terminationon 09-03-2023 Anion gap [Moles/Vol] 12 mmol/L 9-18 [facility] Serum or plasma cancer antig en 19-9 measurement (units/volume)on 09-03-2023 Cancer Ag 19-9 Qn 8.0 [arb'U]/mL <36.0 [facility] Comment on above: Cancer antigen 19-9 test is used as an aid in monitoring response to treatment or recurrence in patients with established pancreatic, hepatobiliary, or gastrointestinal malignancies. Clinical correlation is required.The CA 19-9 Antigen test was performed using the [employer] [place] [employer] DXI paramagnetic particle chemiluminescent immunoassay method. Results obtained with different assay methods or kits cannot be used interchangeably. Vit B12 SerPl-mCncon 024 Cobalamin (Vitamin B12) [Mass/Vol] 758 pg/mL Normal 232-1245 [facility] Comment on above: Order Comment: Speci men Type: BLOOD SPECIMENOrdering Facility: [facility] Address: [address] [place] [address] [place] [address] Performed By: #### 5 0190-8, 2132-9, 2276-4 ####[facility] LABCLIA [id number] [place] [address] [place] CNPRoxann 09-02-2023 CNPN Telephone (HEMASA) ROCIO JACKSON ([id number]) 1955 M Date Time Provider Department 09/02/23 CASSANDRA HERNANDEZ During your visit today, we recorded the following information about you: Cassandra Hernandez RN 09/02/2023 11:53 AM Signed Creon cost is 1500 for a 3 mo supply. Pharmacist at [facility] called around for Zenpep (creon substitute) and Remy MURCIA is able to fill a 30 day supply for 600 dollars. Pharmacy: are there any programs to assist pt? Chris: pt has an appt with you tomorrow to discuss further FRANSICO Murdock Laura, [facility] 09/02/2023 4:32 PM Signed We can initiate a free drug application for Creon, which takes several weeks. We can also check to see if we have any in the Drug Repository. Cassandra Hernandez RN 09/03/2023 8:41 AM Signed Shiela aware we are working on this for her dad. She reports he has approximately 1 week left of Creon. She is aware we will update her soon. FRANSICO Murdock Bridget [facility] [place] 09/03/2023 4:01 PM Signed Printed free drug application for Creon from [employer] website: left message for patient's daughter to return call to pharmacy to update. Application needs patient's prescription card info, household size, income, consent, and a signature prior to faxing. Dr. May's portion is in his folder awaiting his signature. Tosin Zendejas [facility] [place] Cassandra Hernandez RN 09/04/2023 8:15 AM Signed DaughterShiela called back to discuss free drug program information. Please call FRANSICO Murdock Kathryn [facility] [place] 09/04/2023 1:09 PM Signed Spoke with Shiela this morning, advised her we need someone to stop in and sign application. Shiela gave me Rocio's RX insurance information and told me her brother will stop in to sign paperwork and can provide annual income. Advised Shiela that this process with C[facility] can take up to a month to complete and that in the mean time there is a rx for Rocio at the [facility] in [place]. She verbalized understanding. Artur Reynolds PharmD, Imelda Johnston, [facility] [place] 09/10/2023 9:34 AM Signed Rocio approved for free Creon until , shipment should be received in the next 5-7 days. Call placed to Shiela to let her know. I left a message for her. Artur Reynolds PharmD, JORJE Allergies As of Date: 09/02/2023 (No Known Allergies) Date Reviewed: 06/23/2023 Reviewed by: Rola Gordon APRN.TERRAZZO LAYER - Fully Assessed Reason for Visit: Medication Problem [65] Prescriptions as of 09/10/2023 - vskjju-pewrigiq-cfkqbqt (ZENPEP) 25,000-79,000- 105,000 unit delayed release capsule Take 2 capsules by mouth three times a day with meals. - metoclopramide HCl (REGLAN) 10 mg tablet Take 1 tablet by mouth three times a day with meals. - vbcbyb-eaptkoan-dfnusco (CREON 24) 24,000-76,000 -120,000 unit delayed release capsule Take 2 capsules by mouth three times a day with meals. - folic acid 1 mg tablet Take 1 tablet by mouth once daily. - Cholestyramine-Aspartame (CHOLESTYRAMINE LIGHT) 4 gram powder Take 4 g by mouth three times daily with meals. - glipiZIDE (GLUCOTROL) 5 mg tablet Take 5 mg by mouth twice daily before meals. - JARDIANCE 25 mg tablet - ELIQUIS 2.5 mg tab tab(s) Take 2.5 mg by mouth twice daily. - venlafaxine ER (EFFEXOR XR) 75 mg 24 hr capsule TAKE 1 CAPSULE BY MOUTH ONE TIME A DAY - metoprolol succinate ER (TOPROL XL) 25 mg 24 hr tablet Take 25 mg by mouth once daily. - ALPRAZolam (XANAX) 0.25 mg tablet Take 0.25 mg by mouth as needed. - FLUoxetine HCl (PROZAC) 40 mg capsule Take 40 mg by mouth twice daily. - acetaminophen (TYLENOL) 650 mg/20.3 mL soln Take 20.3 mL by mouth every 6 hours as needed. - atorvastatin (LIPITOR) 40 mg tablet Take 40 mg by mouth daily at bedtime. - nitroglycerin sublingual (NITROSTAT) 0.4 mg SL tablet Dissolve 0.4 mg under the tongue every 5 minutes as needed. 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 Adenocarcinoma (HCC) [C80.1] 11/06/2017 Abnormal weight loss [R63.4] 03/26/2018 Anemia due to vitamin B12 deficiency [D51.9] 04/08/2018 Macrocytosis [D75.89] 02/13/2022 Encounter Status:Closed by IMELDA REYNOLDS on 09/04/23 Normal [facility] [place] [facility] EGD / Colonoscopyon 08-05-19 [facility] Huseyin 08-05-2023 L Specimen: [id number] Re ceived: 08/05/23 Status: MADDISON Negro Num: [id number] Spec Type: Surgical Subm Dr: Rick Zapata DO Tissues: A Small Intestine - Biopsy/Polyp (DUODENUM) B Colon Biopsy (ANTRUM BX) Procedures: HE/4, Gross/Micro L4/2 Age/ Patient Sex Location Account Attending Physician Rocio Jackson A 68/M LABELL [id number] Rick Zapata DO SPEC NUM: [id number] RECD: 08/05/23 STATUS: PETERRichard NEGRO NUM: [id number] JAY: 08/05/[address]: Rick Zapata DO ENTERED: 08/05/[address] [facility] [address]: Fidel,Lab SPEC TYPE: Surgical DEPT: SONJA LOVE ORDERED: HE/4, Gross/Micro L4/2 ORDERED: HE/4, Gross/Micro L4/2 Pathological Diagnosis A, duodenal biopsy: -Small bowel mucosa with apparently moderate peptic chronic duodenitis with apparently moderate associated peptic congestion, otherwise without active erosion or obvious chronic ulceration identified -Also no other distinctive features of gluten hypersensitivity identified B, gastric antrum biopsy: -Antral mucosa with mild chronic reactive gastropathy and only focal mild chronic inflammation noted, otherwise without intestinal metaplasia, active erosion, or any significant stromal chronic inflammation observed -Also no other specific features of Helicobacter infection per routine H E morphological assessment Clinical Information Gastritis, duodenitis, normal colon exam, suboptimal bowel prep -------- Specimen: [id number] Received: 08/05/23 Status: MADDISON Negro Num: [id number] Spec Type: Surgical Subm Dr: Rick Zapata DO Tissues: A Small Intestine - Biopsy/Polyp (DUODENUM) B Colon Biopsy (ANTRUM BX) Procedures: SEAN/Rocío, Gross/Micro L4/2 -------- Patient: Rocio Jackson [id number] (Continued) -------- Specimen: [id number] Received: 08/05/23 (Continued) Signed (signature on file) Alberto Barrientos MD 08/07/23 1617 -------- Specimen: [id number] Received: 08/05/23 Status: MADDISON Sruthi Num: [id number] Spec Type: Surgical Subm Dr: Rick Zapata DO Tissues: A Small Intestine - Biopsy/Polyp (DUODENUM) B Colon Biopsy (ANTRUM BX) Procedures: SEAN/Rocío, Gross/Micro L4/2 -------- Patient: Rocio Jackson [id number] (Continued) -------- Specimen: [id number] Received: 08/05/23 (Continued) Gross Description A. Received in formalin labeled with the patient's name, date of and biopsy of duodenum are two sanchez tissues measuring 0.3 x 0.2 x 0.1 cm and 0.3 x 0.3 x 0.2 cm. Entirely submitted in one cassette labeled A1. B. Received in formalin labeled with the patient's name, date of and biopsy of antrum is one sanchez tissue measuring 0.3 cm. Entirely submitted in one cassette labeled B1. CPT Codes 66987d1 -------- -------- Specimen: [id number] Received: 08/05/23 Status: MADDISON Negro Num: [id number] Spec Type: Surgical Subm Dr: Rick Zapata DO Tissues: A Small Intestine - Biopsy/Polyp (DUODENUM) B Colon Biopsy (ANTRUM BX) Procedures: SEAN/Rocío, Vanessa/Davina L4/2 -------- Patient: Rocio Jackson [id number] (Continued) -------- Signed (signature on file) Alberto Barrientos MD 08/07/23 1617 [facility] Surgical PathologyOrdered By : Mary Sinha on 08-05-2023 [facility] CBC W Auto Differential pane l (Bld)on 03-11-2023 Basophils (Bld) [#/Vol] [facility] Basophils/100 WBC (Bld) 0.2 % [facility] Differential cell count method Nom (Bld) Auto [facility] Eosinophils (Bld) [#/Vol] 0.18 10*3/uL [facility] Eosinophils/100 WBC (Bld) 2.9 % [facility] Erythrocyte distribution width (RBC) [Ratio] 13.5 % 11.5 - 15.0 % [facility] Hematocrit (Bld) [Volume fraction] 32.3 % Low 39.0 - 51.0 % [facility] Hemoglobin (Bld) [Mass/Vol] 10.3 g/dL Low 13.0 - 17.0 g/dL [facility] Immature granulocytes (Bld) [#/Vol] [facility] Immature granulocytes/100 WBC (Bld) 0.3 % [facility] Interpretation and review of laboratory results Abnormal [facility] Lymphocytes (Bld) [#/Vol] 1.81 10*3/uL [facility] Lymphocytes/100 WBC (Bld) 28.8 % [facility] MCH (RBC) [Entitic mass] 31.6 pg 26.0 - 34.0 pg [facility] MCHC (RBC) [Mass/Vol] 31.9 g/dL 30.5 - 36.0 g/dL [facility] MCV (RBC) [Entitic vol] 99.1 fL 80.0 - 100.0 fL [facility] Monocytes (Bld) [#/Vol] 0.66 10*3/uL [facility] Monocytes/100 WBC (Bld) 10.5 % [facility] Neutrophils (Bld) [#/Vol] 3.60 10*3/uL [facility] Neutrophils/100 WBC (Bld) 57.3 % [facility] Nucleated RBC (Bld) [#/Vol] [facility] Nucleated RBC/100 WBC (Bld) [Ratio] 0.0 % /100 WBC [facility] Platelet mean volume (Bld) [Entitic vol] 9.3 fL 9.0 - 12.7 fL [facility] Platelets (Bld) [#/Vol] 298 10*3/uL [facility] RBC (Bld) [#/Vol] 3.26 10*6/uL Low 4.20 - 6.00 m/uL [facility] WBC (Bld) [#/Vol] 6.28 10*3/uL [facility] Cobalamin (Vitamin B12) [Mas s/Vol]on 03-11-2023 Interpretation and review of laboratory results Normal [facility] Comprehensive metabolic 2000 panelOrdered By: Cody Bryson on 03-11-2023 Albumin [Mass/Vol] 3.5 g/dL Low 3.9 - 4.9 g/dL [facility] ALP [Catalytic activity/Vol] 107 U/L 38 - 113 U/L [facility] ALT [Catalytic activity/Vol] 17 U/L 10 - 54 U/L [facility] Anion gap [Moles/Vol] 11 mmol/L 9 - 18 mmol/L [facility] AST [Catalytic activity/Vol] 18 U/L 14 - 40 U/L [facility] Bilirubin [Mass/Vol] 0.3 mg/dL 0.2 - 1 .3 mg/dL [facility] Calcium [Mass/Vol] 9.3 mg/dL 8.5 - 10. 2 mg/dL [facility] Chloride [Moles/Vol] 106 mmol/L High 97 - 10 5 mmol/L [facility] CO2 [Moles/Vol] 22 mmol/L 22 - 30 mmol/L [facility] Creatinine [Mass/Vol] 0.77 mg/dL 0.73 - 1.22 mg/dL [facility] GFR/1.73 sq M.predicted among non-blacks MDRD (S/P/Bld) [Vol rate/Area] 99 mL/min/{1.73_m2} - PINF [facility] Comment on above: Estimated Glomerular Filtration Rate (eGFR) is calculated using the 2020 CKD-EPI creatinine equation. This equation utilizes serum creatinine, sex, and age as parameters. The creatinine assay has traceable calibration to isotope dilution-mass spectrometry. Refer to KDIGO guidelines for clinical interpretation. In patients with unstable renal function, e.g. those with acute kidney injury, the eGFR may not accurately reflect actual GFR. Glucose [Mass/Vol] 117 mg/dL High 74 - 99 mg/dL [facility] Comment on above: The [place] Diab[employer] s Association (ADA) provides guidance for cutoff values for fasting glucose and random glucose. The ADA defines fasting as no caloric intake for at least 8 hours. Fasting plasma glucose results between 100 to 125 mg/dL indicate increased risk for diabetes (prediabetes). Fasting plasma glucose results greater than or equal to 126 mg/dL meet the criteria for diagnosis of diabetes. In the absence of unequivocal hyperglycemia, results should be confirmed by repeat testing. In a patient with classic symptoms of hyperglycemia or hyperglycemic crisis, random plasma glucose results greater than or equal to 200 mg/dL meet the criteria for diagnosis of diabetes. Reference: Standards of Medical Care in Diabetes 2016, [place] [employer]. Diabetes Care. 2016.39(Suppl 1). Interpretation and review of laboratory results Abnormal [facility] Potassium [Moles/Vol] 4.2 mmol/L 3.7 - 5.1 mmol/L [facility] Protein [Mass/Vol] 6.8 g/dL 6.3 - 8.0 g/dL [facility] Sodium [Moles/Vol] 139 mmol/L 136 - 144 mmol/L [facility] Urea nitrogen [Mass/Vol] 22 mg/dL 9 - 24 mg/dL [facility] FERRITIN BLDon 03-11-2023 Ferritin [Mass/Vol] 302.0 ng/mL 30.3 - 565.7 ng/mL [facility] Ferritin [Mass/Vol]on 2022 Interpretation and review of laboratory results Normal [facility] GLUCOSE, BLOOD (POC)on 03-11 Glucose [Mass/Vol] 104 mg/dL Abnormal 74 - 99 mg/dL [facility] Comment on above: Location:[facility], [address] [place] [address] , [place], [place], [facility] The Accu-Chek Inform II glucose meter has not been approved for testing on patients receiving intensive medical intervention or therapy and results from this point of care glucose test should not be used for patient management decisions in these cases. Inaccurate results may also occur from other interfering factors, such as N-acetylcysteine (blood concentrations of greater than 5mg/dL), galactose, extremes of hematocrit (<10 or >65), or high doses of ascorbic acid (vitamin C) greater than 3mg/dL. Consider alternate testing mechanisms (e.g. core lab, blood gas instrument) in the above situations. Interpretation and review of laboratory results Abnormal [facility] Iron and Iron binding capaci ty panelon 03-11-2023 Interpretation and review of laboratory results Abnormal [facility] Iron [Mass/Vol] 37 ug/dL Low 41 - 186 ug/dL [facility] Iron binding capacity [Mass/Vol] [facility] Comment on above: Unable to calculate due to hemolysis. Iron/TIBC [Molar ratio] [facility] Comment on above: Unable to calculate due to hemolysis. [facility] PET+CT Guidance for localiza tion of tumor of Skull base to mid-thigh-- W 18F-FDG Petty 03-11-2023 IMPRESSION: 1. HEAD and NECK: No evidence of focal uptake to suggest FDG avid neoplastic process.. 2. CHEST: Focal airspace opacity and groundglass nodule in the left lung base with mild FDG uptake, probably inflammatory in nature. Follow-up is recommended. 3. ABDOMEN/PELVIS: No evidence of focal uptake to suggest FDG avid neoplastic process. Probably postsurgical inflammation in abdomen. 4. EXTREMITIES/SKELETON: No evidence of focal uptake to suggest FDG avid neoplastic process.. Transcribe Date/Time: Mar 11 2023 12:56P Dictated by: EUGENIO PATEL MD This examination was interpreted and the report reviewed and electronically signed by: EUGENIO PATEL MD on Mar 11 2023 1:17PM EST Thank you for allowing us to participate in the care of your patient. Should there be any questions regarding this interpretation, please call [phone]. If you are unable to reach us at the number above, please feel free to contact [facility] eRadiology at [phone]. DIVISION OF RADIOLOGY * * *Final Report* * * DATE OF EXAM: Mar 11 2023 11:41AM NRN [id number] - NM PET/CT SKULL-THIGH INIT / PROCEDURE REASON: Cancer of ampulla of Vater (HCC) * * * * Physician Interpretation * * * * RESULT: WHOLE (OR REGIONAL) BODY PET-CT SCAN CLINICAL HISTORY: Cancer of ampulla of Vater. INDICATION: Initial treatment strategy. TECHNIQUE: PET-CT scan: Approximately 60 minutes following the IV administration of F-18 FDG (6 mCi of F-18 FDG), PET and non contrast CT images were acquired from the skull base through proximal thigh. PET images were reconstructed with and without attenuation correction using attenuation coefficients. The blood glucose level before FDG injection is 103 mg/dL CT Radiation dose: Integrated Dose-length product (DLP) for this visit = 183 mGy*cm. CT Dose Reduction Employed: Automatic exposure control used (AED) COMPARISON: FDG PET-CT: None CORRELATION: CT of the chest, abdomen and pelvis 01/20/2023 RESULTS: Topogram review: Unremarkable, no acute findings. No retained foreign body. Head and Neck: No evidence of focal uptake to suggest FDG avid neoplastic process. Diffuse uptake in the palate and intrinsic tongue, lips is probably physiological. No significant anatomical abnormality to the limits of low dose noncontrast CT scan. Chest: Focal airspace opacity in the left upper lobe at the lung base with mild FDG uptake of max SUV 3.8, probably inflammatory in nature. Groundglass nodule in the left lower lobe with mild FDG uptake of max SUV 1.4, probably inflammatory in nature. Follow-up is recommended.. Abdomen and Pelvis: No evidence of focal uptake to suggest FDG avid neoplastic process. Postsurgical changes in abdomen. There is diffuse heterogeneous uptake in small bowel, no obvious corresponding lesions on the recent CT scan, probably physiological. However, some area of small bowel appears slightly thickened wall, probably postsurgical inflammatory process. Extremities/Skeleton: No evidence of focal uptake to suggest FDG avid neoplastic process. Degenerative arthritic change. 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 INDICATION: Initial treatment strategy. TECHNIQUE: PET-CT scan: Approximately 60 minutes following the IV administration of F-18 FDG (6 mCi of F-18 FDG), PET and non contrast CT images were acquired from the skull base through proximal thigh. PET images were reconstructed with and without attenuation correction using attenuation coefficients. The blood glucose level before FDG injection is 103 mg/dL CT Radiation dose: Integrated Dose-length product (DLP) for this visit = 183 mGy*cm. CT Dose Reduction Employed: Automatic exposure control used (AED) COMPARISON: FDG PET-CT: None CORRELATION: CT of the chest, abdomen and pelvis 01/20/2023 RESULTS: Topogram review: Unremarkable, no acute findings. No retained foreign body. Head and Neck: No evidence of focal uptake to suggest FDG avid neoplastic process. Diffuse uptake in the palate and intrinsic tongue, lips is probably physiological. No significant anatomical abnormality to the limits of low dose noncontrast CT scan. Chest: Focal airspace opacity in the left upper lobe at the lung base with mild FDG uptake of max SUV 3.8, probably inflammatory in nature. Groundglass nodule in the left lower lobe with mild FDG uptake of max SUV 1.4, probably inflammatory in nature. Follow-up is recommended.. Abdomen and Pelvis: No evidence of focal uptake to suggest FDG avid neoplastic process. Postsurgical changes in abdomen. There is diffuse heterogeneous uptake in small bowel, no obvious corresponding lesions on the recent CT scan, probably physiological. However, some area of small bowel appears slightly thickened wall, probably postsurgical inflammatory process. Extremities/Skeleton: No evidence of focal uptake to suggest FDG avid neoplastic process. Degenerative arthritic change. IMPRESSION IMPRESSION: 1. HEAD and NECK: No evidence of focal uptake to suggest FDG avid neoplastic process.. 2. CHEST: Focal airspace opacity and groundglass nodule in the left lung base with mild FDG uptake, probably inflammatory in nature. Follow-up is recommended. 3. ABDOMEN/PELVIS: No evidence of focal uptake to suggest FDG avid neoplastic process. Probably postsurgical inflammation in abdomen. 4. EXTREMITIES/SKELETON: No evidence of focal uptake to suggest FDG avid neoplastic process.. Transcribe Date/Time: Mar 11 2023 12:56P Dictated by: EUGENIO PATEL MD This examination was interpreted and the report reviewed and electronically signed by: EUGENIO PATEL MD on Mar 11 2023 1:17PM EST Thank you for allowing us to participate in the care of your patient. Should there be any questions regarding this interpretation, please call [phone]. If you are unable to reach us at the number above, please feel free to contact [facility] eRadiology at [phone]. [facility] Radiology Study observation (narrative) [facility] PET+CT Guidance for localiza tion of tumor of Skull base to mid-thigh-- W 18F-FDG IVOrdered By: [facility] Provider on 03-11-2023 [facility] VITAMIN B12 BLOODon 03-11-20 Cobalamin (Vitamin B12) [Mass/Vol] 758 pg/mL 232 - 1245 pg/mL [facility] Albumin Levelon 02-10-2023 Albumin [Mass/Vol] 3.4 g/dL Low 3.5-5.7 [facility] Comment on above: Order Comment: Diagn osis: E11.9, I10, E46, D64.9 Comment: [id number] Gonzalez [id number], , 02/06/23 Result Comment: PERF ORMED BY: [place] [address] PATHOLOGIST PSYCH TECH ESTIVEN GENTILE M.D. Performed By: #### A LB, CBC, BMP #### [facility] [address] [id number] [facility] Albumin [Mass/volume] in Ser um or Plasma by Bromocresol green (BCG) dye binding methoOrdered By: Adriane Espitia on 02-10-2023 Albumin BCG dye [Mass/Vol] 3.4 g/dL 3.5-5.7 [facility] Basic Metabolic Panelon 01-27 Anion gap [Moles/Vol] 11.5 mmol/L Normal 6.0-15.0 [facility] Comment on above: Order Comment: Diagn osis: E11.9, I10, E46, D64.9 Comment: [id number] Gonzalez [id number], , 02/06/23 Performed By: #### A LB, CBC, BMP #### [facility] [address] [place] [address] [place] Calcium [Mass/Vol] 8.8 mg/dL Normal 8.6-10.3 [facility] Comment on above: Order Comment: Diagn osis: E11.9, I10, E46, D64.9 Comment: [id number], OGONTZ, RM112, HM, 02/06/23 Performed By: #### A LB, CBC, BMP #### [facility] [address] Chloride [Moles/Vol] 103 mmol/L Normal 98-107 [facility] Comment on above: Order Comment: Diagn osis: E11.9, I10, E46, D64.9 Comment: [id number], OGONTZ, RM112, HM, 02/06/23 Performed By: #### A LB, CBC, BMP #### [facility] [address] [place] [address] CO2 [Moles/Vol] 25.2 mmol/L Normal 21.0-31.0 [facility] Comment on above: Order Comment: Diagn osis: E11.9, I10, E46, D64.9 Comment: [id number], OGONTZ, RM112, HM, 02/06/23 Performed By: #### A LB, CBC, BMP #### [facility] [address] [place] [address] Creatinine [Mass/Vol] 0.65 mg/dL Low 0.70-1.30 [facility] Comment on above: Order Comment: Diagn osis: E11.9, I10, E46, D64.9 Comment: [id number], OGONTZ, RM112, HM, 02/06/23 Performed By: #### A LB, CBC, BMP #### [facility] [address] [place] [address] [place] GFR/1.73 sq M.predicted MDRD (S/P/Bld) [Vol rate/Area] mL/min/{1.73_m2} [facility] Comment on above: Order Comment: Diagn osis: E11.9, I10, E46, D64.9 Comment: [id number], OGONTZ, RM112, HM, 02/06/23 Performed By: #### A LB, CBC, BMP #### [facility] [address] [id number] [facility] Glucose [Mass/Vol] 102 mg/dL High 70-100 [facility] Comment on above: Order Comment: Diagn osis: E11.9, I10, E46, D64.9 Comment: [id number], DECLAN, RM112, HM, 02/06/23 Result Comment: [place] Glucose Reference Range is dependent on time and content of last meal. Glucose of more than 200 mg/dL in a nonstressed, ambulatory subject supports the diagnosis of Diabetes Mellitus. ADA recommended reference range Performed By: #### A LB, CBC, BMP #### [address] Potassium [Moles/Vol] 4.7 mmol/L Normal 3.5-5.1 [facility] Comment on above: Order Comment: Diagn osis: E11.9, I10, E46, D64.9 Comment: [id number], DECLAN, RMRobinson, , 02/06/23 Performed By: #### A LB, CBC, BMP #### [address] [id number] [facility] Sodium [Moles/Vol] 135 mmol/L Low 136-145 [facility] Comment on above: Order Comment: Diagn osis: E11.9, I10, E46, D64.9 Comment: [id number], DECLAN, RM112, , 02/06/23 Performed By: #### A LB, CBC, BMP #### [address] [id number] [facility] Urea nitrogen [Mass/Vol] 19 mg/dL Normal 7-25 [facility] Comment on above: Order Comment: Diagn osis: E11.9, I10, E46, D64.9 Comment: [id number], DECLAN, RM112, HM, 02/06/23 Performed By: #### A LB, CBC, BMP #### [address] [id number] [place] Basophils Auto (Bld) [#/Vol] Ordered By: Adriane Espitia on 02-10-2023 Basophils (Bld) [#/Vol] 0.0 10*3/uL 0.0-0.2 [facility] Basophils/100 WBC Auto (Bld) Ordered By: Adriane Espitia on 02-10-2023 Basophils/100 WBC (Bld) 0.4 % . [facility] Calcium [Mass/volume] in Ser um or PlasmaOrdered By: Adriane Espitia on 02-10-2023 Calcium [Mass/Vol] 8.8 mg/dL 8.6-10.3 [facility] Carbon dioxide, total [Moles /volume] in Serum or PlasmaOrdered By: Adriane Espitia on 02-10-2023 CO2 [Moles/Vol] 25.2 mmol/L 21.0-31.0 [facility] Chloride [Moles/volume] in S brandi or PlasmaOrdered By: Adriane Espitia on 02-10-2023 Chloride [Moles/Vol] 103 mmol/L 98-107 [facility] Complete Blood Count Auto Di ffon 02-10-2023 Basophils (Bld) [#/Vol] 0.0 10*3/uL Normal 0.0-0.2 [facility] Comment on above: Order Comment: Diagn osis: E11.9, I10, E46, D64.9 Comment: DECLAN Velazquez RM112, HM, 02/06/23 Result Comment: PERF ORMED BY: [place] [address] PATHOLOGIST PSYCH TECH ESTIVEN GENTILE M.D. Performed By: #### A LB, CBC, BMP #### [facility] [address] [place] [address] Basophils/100 WBC (Bld) 0.4 % Normal . [facility] Comment on above: Order Comment: Diagn osis: E11.9, I10, E46, D64.9 Comment: [id number] Gonzalez RM112 , 02/06/23 Performed By: #### A LB, CBC, BMP #### [facility] [address] [place] [address] Eosinophils (Bld) [#/Vol] 0.1 10*3/uL Normal 0.0-0.45 [facility] Comment on above: Order Comment: Diagn osis: E11.9, I10, E46, D64.9 Comment: [id number], OGONTZ, RM112, HM, 02/06/23 Performed By: #### A LB, CBC, BMP #### [facility] [address] Eosinophils/100 WBC (Bld) 3.1 % Normal . [facility] Comment on above: Order Comment: Diagn osis: E11.9, I10, E46, D64.9 Comment: [id number], OGONTZ, RM112, HM, 02/06/23 Performed By: #### A LB, CBC, BMP #### [address] Erythrocyte distribution width (RBC) [Ratio] 14.4 % Normal 12.0-14.8 [facility] Comment on above: Order Comment: Diagn osis: E11.9, I10, E46, D64.9 Comment: [id number], OGONTZ, RM112, HM, 02/06/23 Performed By: #### A LB, CBC, BMP #### [address] Hematocrit (Bld) [Volume fraction] 30.9 % Low 38.8-50.0 [facility] Comment on above: Order Comment: Diagn osis: E11.9, I10, E46, D64.9 Comment: [id number], OGONTZ, RM112, , 02/06/23 Performed By: #### A LB, CBC, BMP #### [address] Hemoglobin (Bld) [Mass/Vol] 10.3 g/dL Low 13.0-17.0 [facility] Comment on above: Order Comment: Diagn osis: E11.9, I10, E46, D64.9 Comment: [id number], OGONTZ, RM112, HM, 02/06/23 Performed By: #### A LB, CBC, BMP #### [place] [address] [place] Lymphocytes (Bld) [#/Vol] 1.3 10*3/uL Normal 1.00-4.8 [facility] Comment on above: Order Comment: Diagn osis: E11.9, I10, E46, D64.9 Comment: [id number], OGONTZ, RM112, HM, 02/06/23 Performed By: #### A LB, CBC, BMP #### [address] Lymphocytes/100 WBC (Bld) 28.3 % Normal . [facility] Comment on above: Order Comment: Diagn osis: E11.9, I10, E46, D64.9 Comment: [id number], OGONTZ, RM112, HM, 02/06/23 Performed By: #### A LB, CBC, BMP #### [address] MCH (RBC) [Entitic mass] 32.0 pg Normal 27.5-35.2 [facility] Comment on above: Order Comment: Diagn osis: E11.9, I10, E46, D64. Comment: [id number], OGONTZ, RM112, HM, 02/06/23 Performed By: #### A LB, CBC, BMP #### [address] MCV (RBC) [Entitic vol] 96.3 fL Normal 83.5-101 [facility] Comment on above: Order Comment: Diagn osis: E11.9, I10, E46, D64.9 Comment: [id number], OGONTZ, RM112, HM, 02/06/23 Performed By: #### A LB, CBC, BMP #### [facility] [address] [place] [address] Mean Corpuscular HGB Conc 33.3 g/dL Normal 32.5-35.6 [facility] Comment on above: Order Comment: Diagn osis: E11.9, I10, E46, D64.9 Comment: [id number], OGONTZ, RM112, HM, 02/06/23 Performed By: #### A LB, CBC, BMP #### [facility] [address] [place] [address] [place] Monocytes (Bld) [#/Vol] 0.5 10*3/uL Normal 0.0-0.8 [facility] Comment on above: Order Comment: Diagn osis: E11.9, I10, E46, D64.9 Comment: [id number], OGONTZ, RM112, HM, 02/06/23 Performed By: #### A LB, CBC, BMP #### [facility] [address] [place] [id number] [place] Monocytes/100 WBC (Bld) 10.1 % Normal . [facility] Comment on above: Order Comment: Diagn osis: E11.9, I10, E46, D64.9 Comment: [id number], OGONTZ, RM112, HM, 02/06/23 Performed By: #### A LB, CBC, BMP #### [facility] [address] [place] [address] [place] Neutrophils (Bld) [#/Vol] 2.7 10*3/uL Normal 1.8-7.7 [facility] Comment on above: Order Comment: Diagn osis: E11.9, I10, E46, D64.9 Comment: [id number], OGONTZ, RM112, HM, 02/06/23 Performed By: #### A LB, CBC, BMP #### [facility] [address] [place], [place] [id number] [place] Neutrophils/100 WBC (Bld) 58.1 % Normal . [facility] Comment on above: Order Comment: Diagn osis: E11.9, I10, E46, D64.9 Comment: [id number], OGONTZ, RM112, HM, 02/06/23 Performed By: #### A LB, CBC, BMP #### [facility] [address] [place] [id number] [place] NRBC% 0.0 /100{WBC} Normal 0-0.5 [facility] Comment on above: Order Comment: Diagn osis: E11.9, I10, E46, D64.9 Comment: [id number], OGONTZ, RM112, HM, 02/06/23 Performed By: #### A LB, CBC, BMP #### [facility] [address] Platelet mean volume (Bld) [Entitic vol] 7.6 fL Normal 6.6-10.1 [facility] Comment on above: Order Comment: Diagn osis: E11.9, I10, E46, D64.9 Comment: [id number], OGONTZ, RM112, HM, 02/06/23 Performed By: #### A LB, CBC, BMP #### [facility] [address] Platelets (Bld) [#/Vol] 281 10*3/uL Normal 150-450 [facility] Comment on above: Order Comment: Diagn osis: E11.9, I10, E46, D64.9 Comment: [id number], OGONTZ, RM112, HM, 02/06/23 Performed By: #### A LB, CBC, BMP #### [facility] [address] [place] [address] RBC (Bld) [#/Vol] 3.21 10*6/uL Low 3.90-5.60 [facility] Comment on above: Order Comment: Diagn osis: E11.9, I10, E46, D64.9 Comment: [id number], OGONTZ, RM112, HM, 02/06/23 Performed By: #### A LB, CBC, BMP #### [facility] [address] [place] [address] WBC (Bld) [#/Vol] 4.7 10*3/uL Normal 4.1-10.5 [facility] Comment on above: Order Comment: Diagn osis: E11.9, I10, E46, D64.9 Comment: [id number], OGONTZ, RM112, HM, 02/06/23 Performed By: #### A LB, CBC, BMP #### [facility] [address] [place] [id number] [facility] Creatinine [Mass/volume] in Serum or PlasmaOrdered By: Adriane Espitia on 02-10-2023 Creatinine [Mass/Vol] 0.65 mg/dL 0.70-1.30 [facility] Eosinophils Auto (Bld) [#/Vo l]Ordered By: Adriane Espitia on 02-10-2023 Eosinophils (Bld) [#/Vol] 0.1 10*3/uL 0.0-0.45 [facility] Eosinophils/100 WBC Auto (Bl d)Ordered By: Adriane Espitia on 02-10-2023 Eosinophils/100 WBC (Bld) 3.1 % . [facility] Erythrocyte distribution wid th Auto (RBC) [Ratio]Ordered By: Adriane Espitia on 02-10-2023 Erythrocyte distribution width (RBC) [Ratio] 14.4 % 12.0-14.8 [facility] Glucose [Mass/volume] in Ser um or PlasmaOrdered By: Adriane Espitia on 02-10-2023 Glucose [Mass/Vol] 102 mg/dL 70-100 [facility] Comment on above: ADA recommended refe rence rangeRandom Glucose Reference Range is dependent on time and content of last meal. Glucose of more than 200 mg/dL in a nonstressed, ambulatory subject supports the diagnosis of Diabetes Mellitus. Hematocrit Auto (Bld) [Volum e fraction]Ordered By: Adriane Espitia on 02-10-2023 Hematocrit (Bld) [Volume fraction] 30.9 % 38.8-50.0 [facility] Hemoglobin [Mass/volume] in BloodOrdered By: Adriane Espitia on 02-10-2023 Hemoglobin (Bld) [Mass/Vol] 10.3 g/dL 13.0-17.0 [facility] Leukocytes [#/volume] correc missael for nucleated erythrocytes in Blood by Automated counOrdered By: Adriane Espitia on 02-10-2023 WBC corrected for nucl RBC Auto (Bld) [#/Vol] 4.7 10*3/uL 4.1-10.5 [facility] Lymphocytes Auto (Bld) [#/Vo l]Ordered By: Adriane Espitia on 02-10-2023 Lymphocytes (Bld) [#/Vol] 1.3 10*3/uL 1.00-4.8 [facility] Lymphocytes/100 WBC Auto (Bl d)Ordered By: Adriane Espitia on 02-10-2023 Lymphocytes/100 WBC (Bld) 28.3 % . [facility] MCH Auto (RBC) [Entitic mass ]Ordered By: Adriane Espitia on 02-10-2023 MCH (RBC) [Entitic mass] 32.0 pg 27.5-35.2 [facility] MCHC Auto (RBC) [Mass/Vol]Or dered By: Adriane Espitia on 02-10-2023 MCHC (RBC) [Mass/Vol] 33.3 g/dL 32.5-35.6 [facility] MCV Auto (RBC) [Entitic vol] Ordered By: Adriane Espitia on 02-10-2023 MCV (RBC) [Entitic vol] 96.3 fL 83.5-101 [facility] Monocytes Auto (Bld) [#/Vol] Ordered By: Adriane Espitia on 02-10-2023 Monocytes (Bld) [#/Vol] 0.5 10*3/uL 0.0-0.8 [facility] Monocytes/100 WBC Auto (Bld) Ordered By: Adriane Espitia on 02-10-2023 Monocytes/100 WBC (Bld) 10.1 % . [facility] Neutrophils Auto (Bld) [#/Vo l]Ordered By: Adriane Espitia on 02-10-2023 Neutrophils (Bld) [#/Vol] 2.7 10*3/uL 1.8-7.7 [facility] Neutrophils/100 WBC Auto (Bl d)Ordered By: Adriane Espitia on 02-10-2023 Neutrophils/100 WBC (Bld) 58.1 % . [facility] No Panel InformationOrdered By: Adriane Espitia on 02-10-2023 Estimated GFR (CKD-EPI) > 60.0 mL/Min [facility] Creatinine Clearance (Chem N/A [facility] Nucleated erythrocytes [Pres ence] in Blood by Automated countOrdered By: Adriane Espitia on 02-10-2023 Nucleated RBC Auto Ql (Bld) 0.0 /100{WBC} 0-0.5 [facility] Platelet mean volume Auto (B ld) [Entitic vol]Ordered By: Adriane Espitia on 02-10-2023 Platelet mean volume (Bld) [Entitic vol] 7.6 fL 6.6-10.1 [facility] Platelets Auto (Bld) [#/Vol] Ordered By: Adriane Espitia on 02-10-2023 Platelets (Bld) [#/Vol] 281 10*3/uL 150-450 [facility] Potassium [Moles/volume] in Serum or PlasmaOrdered By: Adriane Espitia on 02-10-2023 Potassium [Moles/Vol] 4.7 mmol/L 3.5-5.1 [facility] RBC Auto (Bld) [#/Vol]Ordere d By: Adriane Espitia on 02-10-2023 RBC (Bld) [#/Vol] 3.21 10*6/uL 3.90-5.60 [facility] Relevant diagnostic tests/la boratory data Narrativeon 02-10-2023 Albumin [Mass/Vol] 3.4 g/dL Low 3.5-5.[address] [facility] [place] [place] Work Phone: Anion gap [Moles/Vol] 11.5 mmol/L 6.0-15.0 [facility] Work Phone: Basophils (Bld) [#/Vol] 0 10*3/uL 0.0-0.2 [facility] Work Phone: Basophils/100 WBC (Bld) 0.4 % . [facility] Work Phone: Calcium [Mass/Vol] 8.8 mg/dL 8.6-10.[address] [facility] [place] [place] Work Phone: Chloride [Moles/Vol] 103 mmol/L 98-107 [facility] Work Phone: CO2 [Moles/Vol] 25.2 mmol/L 21.0-31.0 [facility] Work Phone: Creatinine [Mass/Vol] 0.65 mg/dL Low 0.70-1.30 [facility] Work Phone: Eosinophils (Bld) [#/Vol] 0.1 10*3/uL 0.0-0.45 [facility] Work Phone: Eosinophils/100 WBC (Bld) 3.1 % . [facility] Work Phone: Erythrocyte distribution width (RBC) [Entitic vol] 14.4 % 12.0-14.8 [facility] Work Phone: GFR/1.73 sq M.predicted MDRD (S/P/Bld) [Vol rate/Area] mL/min/{1.73_m2} [facility] Work Phone: Glucose [Mass/Vol] 102 mg/dL High 70-[address] [facility] [place] [place] Work Phone: Hematocrit (Bld) [Volume fraction] 30.9 % Low 38.8-50.0 [facility] Work Phone: Hemoglobin (Bld) [Mass/Vol] 10.3 g/dL Low 13.0-17.0 [facility] Work Phone: Lymphocytes (Bld) [#/Vol] 1.3 10*3/uL 1.00-4.8 [facility] Work Phone: Lymphocytes/100 WBC (Bld) 28.3 % . [facility] Work Phone: MCH (RBC) [Entitic mass] 96.3 fL 83.5-101 [facility] Work Phone: MCH (RBC) [Entitic mass] 32 pg 27.5-35.2 [facility] Work Phone: MCHC (RBC) [Mass/Vol] 33.3 g/dL 32.5-35.6 [facility] Work Phone: Monocytes (Bld) [#/Vol] 0.5 10*3/uL 0.0-0.8 [facility] Work Phone: Monocytes/100 WBC (Bld) 10.1 % . [facility] Work Phone: Neutrophils (Bld) [#/Vol] 2.7 10*3/uL 1.8-7.7 [facility] Work Phone: Neutrophils/100 WBC (Bld) 58.1 % . [facility] Work Phone: Nucleated RBC (Bld) [#/Vol] 0 /100{WBC} 0-0.5 [facility] Work Phone: Platelet mean volume (Bld) [Entitic vol] 7.6 fL 6.6-10.1 [facility] Work Phone: Platelets (Bld) [#/Vol] 281 10*3/uL 150-450 [facility] Work Phone: Potassium [Moles/Vol] 4.7 mmol/L 3.5-5.1 [facility] Work Phone: RBC (Bld) [#/Vol] 3.21 10*6/uL Low 3.90-5.60 [facility] Work Phone: Sodium [Moles/Vol] 135 mmol/L Low 136-[address] [facility] [place] [place] Work Phone: Urea nitrogen [Mass/Vol] 19 mg/dL 7-25 [facility] Work Phone: WBC (Bld) [#/Vol] 4.7 10*3/uL 4.1-10.[address] [facility] [place] [place] Work Phone: WBC casts LM.LPF (Urine sed) [#/Area] 4.7 10*3/uL 4.1-10.5 [facility] Work Phone: Serum or plasma anion gap de terminationOrdered By: Adriane Espitia on 02-10-2023 Anion gap [Moles/Vol] 11.5 mmol/L 6.0-15.0 [facility] Sodium [Moles/volume] in Ser um or PlasmaOrdered By: Adriane Espitia on 02-10-2023 Sodium [Moles/Vol] 135 mmol/L 136-145 [facility] Urea nitrogen [Mass/volume] in Serum or PlasmaOrdered By: Adriane Espitia on 02-10-2023 Urea nitrogen [Mass/Vol] 19 mg/dL 7-25 [facility] WBC Auto (Bld) [#/Vol]Ordere d By: Adriane Espitia on 02-10-2023 WBC (Bld) [#/Vol] 4.7 10*3/uL 4.1-10.5 [facility] Relevant diagnostic tests/la boratory data Narrativeon 01-28-2023 Albumin [Mass/Vol] 2.9 g/dL Low 3.5-5.[address] [facility] [place] [place] Work Phone: Anion gap [Moles/Vol] 7.1 mmol/L 6.0-15.0 [facility] Work Phone: Basophils (Bld) [#/Vol] 0 10*3/uL 0.0-0.2 [facility] Work Phone: Basophils/100 WBC (Bld) 0.5 % . [facility] Work Phone: C-Peptide 1.4 ng/mL 1.1-4.4 [facility] Work Phone: Calcium [Mass/Vol] 7.8 mg/dL Low 8.6-10.[address] [facility] [place] [place] Work Phone: Chloride [Moles/Vol] 109 mmol/L High 98-107 [facility] Work Phone: Cholesterol [Mass/Vol] 72 mg/dL Low 140-200 [facility] Work Phone: Cholesterol in HDL [Mass/Vol] 22 mg/dL Low 23-92 [facility] Work Phone: Cholesterol.total/Cho lesterol in HDL [Mass ratio] 3.3 {ratio} <5.0 [facility] Work Phone: CK [Catalytic activity/Vol] 59 U/L 30-223 [facility] Work Phone: CO2 [Moles/Vol] 25.2 mmol/L 21.0-31.0 [facility] Work Phone: Cobalamin (Vitamin B12) [Mass/Vol] 498 pg/mL 180-914 [facility] Work Phone: Creatinine [Mass/Vol] 0.66 mg/dL Low 0.70-1.30 [facility] Work Phone: Eosinophils (Bld) [#/Vol] 0.1 10*3/uL 0.0-0.45 [facility] Work Phone: Eosinophils/100 WBC (Bld) 3.7 % . [facility] Work Phone: Erythrocyte distribution width (RBC) [Entitic vol] 14.7 % 12.0-14.8 [facility] Work Phone: GFR/1.73 sq M.predicted MDRD (S/P/Bld) [Vol rate/Area] mL/min/{1.73_m2} [facility] Work Phone: Glucose [Mass/Vol] 151 mg/dL [facility] [place] [place] Work Phone: Glucose [Mass/Vol] 111 mg/dL High 70-[address] [facility] [place] [place] Work Phone: HbA1c (Bld) [Mass fraction] 6.9 % High 4.3-5.6 [facility] Work Phone: Hematocrit (Bld) [Volume fraction] 27.4 % Low 38.8-50.0 [facility] Work Phone: Hemoglobin (Bld) [Mass/Vol] 9.1 g/dL Low 13.0-17.0 [facility] Work Phone: LDL Cholesterol,Calculate d 40 mg/dL 0-100 [facility] Work Phone: Lymphocytes (Bld) [#/Vol] 1.1 10*3/uL 1.00-4.8 [facility] Work Phone: Lymphocytes/100 WBC (Bld) 27.2 % . [facility] Work Phone: MCH (RBC) [Entitic mass] 95.3 fL 83.5-101 [facility] Work Phone: MCH (RBC) [Entitic mass] 31.7 pg 27.5-35.2 [facility] Work Phone: MCHC (RBC) [Mass/Vol] 33.3 g/dL 32.5-35.6 [facility] Work Phone: Monocytes (Bld) [#/Vol] 0.4 10*3/uL 0.0-0.8 [facility] Work Phone: Monocytes/100 WBC (Bld) 10.1 % . [facility] Work Phone: Neutrophils (Bld) [#/Vol] 2.3 10*3/uL 1.8-7.7 [facility] Work Phone: Neutrophils/100 WBC (Bld) 58.5 % . [facility] Work Phone: Nucleated RBC (Bld) [#/Vol] 0.2 /100{WBC} 0-0.5 [facility] Work Phone: Platelet mean volume (Bld) [Entitic vol] 7 fL 6.6-10.1 [facility] Work Phone: Platelets (Bld) [#/Vol] 302 10*3/uL 150-450 [facility] Work Phone: Potassium [Moles/Vol] 4.3 mmol/L 3.5-5.1 [facility] Work Phone: RBC (Bld) [#/Vol] 2.88 10*6/uL Low 3.90-5.60 [facility] Work Phone: Reticulocyte Number 0.035 10*6/uL 0.024-[address] [facility] Work Phone: Reticulocyte Percent 1.2 % 0.5-1.5 [facility] Work Phone: Sodium [Moles/Vol] 137 mmol/L 136-[address] [facility] [place] [place] Work Phone: Triglyceride w/Reflex 52 mg/dL 0-149 [facility] Work Phone: Urea nitrogen [Mass/Vol] 16 mg/dL 7-25 [facility] Work Phone: Vitamin D 25 Hydroxy Total < 7.0 Low 30-100 [facility] Work Phone: VLDL CHOLESTEROL 10 mg/dL [facility] Work Phone: WBC (Bld) [#/Vol] 4 10*3/uL Low 4.1-10.5 [facility] Work Phone: WBC casts LM.LPF (Urine sed) [#/Area] 4 10*3/uL Low 4.1-10.5 [facility] Work Phone: A1C with Estimated Average [facility] Glucose [Mass/Vol] 151 mg/dL Normal [facility] Comment on above: Order Comment: Diagn osis: D64.9, I48.0, E11.9, K90.81 Comment: [id number], DECLAN, RM112, , 01/23/23 Result Comment: PERF ORMED BY: [address] [address] PATHOLOGIST PSYCH TECH ESTIVEN GENTILE M.D. Performed By: #### C BC, RETIC, B12, CK, ALB, A1C WTH eA, [id number], LIPID, BMP #### [facility] [address] #### CPEP #### [facility] , HbA1c (Bld) [Mass fraction] 6.9 % High 4.3-5.6 [facility] Comment on above: Order Comment: Diagn osis: D64.9, I48.0, E11.9, K90.81 Comment: [id number], DECLAN, RM112, HM, 01/23/23 Result Comment: Incr eased risk for diabetes: 5.7 - 6.4 diabetes: >6.4 glycemic control for adults with diabetes: <7.0 Performed By: #### C BC, RETIC, B12, CK, ALB, A1C WTH eA, [id number], LIPID, BMP #### [facility] [address] [place] [address] #### CPEP #### [facility] , Absolute reticulocyte countO rdered By: Adriane Espitia on 01-27-2023 Reticulocytes (Bld) [#/Vol] 0.035 10*6/uL 0.024-0.08 4 [facility] Albumin Levelon 01-27-2023 Albumin [Mass/Vol] 2.9 g/dL Low 3.5-5.7 [facility] Comment on above: Order Comment: Diagn osis: D64.9, I48.0, E11.9, K90.81 Comment: [id number], DECLAN, RM112, HM, 01/23/23 Performed By: #### C BC, RETIC, B12, CK, ALB, A1C WTH eA, [id number], LIPID, BMP #### [address] #### CPEP #### [facility] , Albumin [Mass/volume] in Ser um or Plasma by Bromocresol green (BCG) dye binding methoOrdered By: Adriane Espitia on 01-27-2023 Albumin BCG dye [Mass/Vol] 2.9 g/dL 3.5-5.7 [facility] Basic Metabolic Panelon Anion gap [Moles/Vol] 7.1 mmol/L Normal 6.0-15.0 [facility] Comment on above: Order Comment: Diagn osis: D64.9, I48.0, E11.9, K90.81 Comment: [id number], OGNICOLAS, RM112, HM, 01/23/23 Performed By: #### C BC, RETIC, B12, CK, ALB, A1C WTH eA, [id number], LIPID, BMP #### [facility] [address] [place] [address] #### CPEP #### [facility] , Calcium [Mass/Vol] 7.8 mg/dL Low 8.6-10.3 [facility] Comment on above: Order Comment: Diagn osis: D64.9, I48.0, E11.9, K90.81 Comment: [id number], OGONTZ, RM112, , 01/23/23 Performed By: #### C BC, RETIC, B12, CK, ALB, A1C WTH eA, [id number], LIPID, BMP #### [facility] [address] [place] [address] #### CPEP #### [facility] , Chloride [Moles/Vol] 109 mmol/L High 98-107 [facility] Comment on above: Order Comment: Diagn osis: D64.9, I48.0, E11.9, K90.81 Comment: [id number], OGONTZ, RM112, , 01/23/23 Performed By: #### C BC, RETIC, B12, CK, ALB, A1C WTH eA, [id number], LIPID, BMP #### [address] #### CPEP #### [facility] , CO2 [Moles/Vol] 25.2 mmol/L Normal 21.0-31.0 [facility] Comment on above: Order Comment: Diagn osis: D64.9, I48.0, E11.9, K90.81 Comment: [id number], OGONTZ, RM112, , 01/23/23 Performed By: #### C BC, RETIC, B12, CK, ALB, A1C WTH eA, [id number], LIPID, BMP #### [facility] [address] [place] [address] [place] #### CPEP #### [facility] , Creatinine [Mass/Vol] 0.66 mg/dL Low 0.70-1.30 [facility] Comment on above: Order Comment: Diagn osis: D64.9, I48.0, E11.9, K90.81 Comment: [id number] RM112, , 01/23/23 Performed By: #### C BC, RETIC, B12, CK, ALB, A1C WTH eA, [id number], LIPID, BMP #### [facility] [address] [place] [address] [place] #### CPEP #### [facility] , GFR/1.73 sq M.predicted MDRD (S/P/Bld) [Vol rate/Area] mL/min/{1.73_m2} [facility] Comment on above: Order Comment: Diagn osis: D64.9, I48.0, E11.9, K90.81 Comment: [id number], ALYSSIA MANRIQUEZ, , 01/23/23 Performed By: #### C BC, RETIC, B12, CK, ALB, A1C WTH eA, [id number], LIPID, BMP #### [address] #### CPEP #### [facility] , Glucose [Mass/Vol] 111 mg/dL High 70-100 [facility] Comment on above: Order Comment: Diagn osis: D64.9, I48.0, E11.9, K90.81 Comment: [id number], ALYSSIA MANRIQUEZ, , 01/23/23 Result Comment: [facility] Glucose Reference Range is dependent on time and content of last meal. Glucose of more than 200 mg/dL in a nonstressed, ambulatory subject supports the diagnosis of Diabetes Mellitus. ADA recommended reference range Performed By: #### C BC, RETIC, B12, CK, ALB, A1C WTH eA, [id number], LIPID, BMP #### [place] [address] [place] #### CPEP #### [facility] , Potassium [Moles/Vol] 4.3 mmol/L Normal 3.5-5.1 [facility] Comment on above: Order Comment: Diagn osis: D64.9, I48.0, E11.9, K90.81 Comment: [id number], RICKYNICOLAS, RM112, , 01/23/23 Performed By: #### C BC, RETIC, B12, CK, ALB, A1C WTH eA, [id number], LIPID, BMP #### [facility] [address] [place] [address] #### CPEP #### [facility] , Sodium [Moles/Vol] 137 mmol/L Normal 136-145 [facility] Comment on above: Order Comment: Diagn osis: D64.9, I48.0, E11.9, K90.81 Comment: [id number], DECLAN, RM112, , 01/23/23 Performed By: #### C BC, RETIC, B12, CK, ALB, A1C WTH eA, [id number], LIPID, BMP #### [facility] [address] [place] [address] #### CPEP #### [facility] , Urea nitrogen [Mass/Vol] 16 mg/dL Normal 7-25 [facility] Comment on above: Order Comment: Diagn osis: D64.9, I48.0, E11.9, K90.81 Comment: [id number], DECLAN, RM112, , 01/23/23 Performed By: #### C BC, RETIC, B12, CK, ALB, A1C WTH eA, [id number], LIPID, BMP #### [place] [address] [place] #### CPEP #### [facility] , Basophils Auto (Bld) [#/Vol] Ordered By: Adriane Espitia on 01-27-2023 Basophils (Bld) [#/Vol] 0.0 10*3/uL 0.0-0.2 [facility] Basophils/100 WBC Auto (Bld) Ordered By: Adriane Espitia on 01-27-2023 Basophils/100 WBC (Bld) 0.5 % . [facility] C-Peptideon 01-27-2023 C-Peptide 1.4 ng/mL Normal 1.1-4.4 [facility] Comment on above: Order Comment: Diagn osis: E11.9, I10, E46, D64.9 Comment: [id number], DECLAN, RM112, HM, 02/06/23 Result Comment: C-Pe ptide reference interval is for fasting patients. Performed at: - [facility] [id number] Warranty Administrator: Silverio Mario PhD, Phone: [phone] PERFORMED BY: [place] [address] PATHOLOGIST PSYCH TECH ESTIVEN GENTILE M.D. Performed By: #### A LB, CBC, BMP #### [address] Calcium [Mass/volume] in Ser um or PlasmaOrdered By: Adriane Espitia on 01-27-2023 Calcium [Mass/Vol] 7.8 mg/dL 8.6-10.3 [facility] Carbon dioxide, total [Moles /volume] in Serum or PlasmaOrdered By: Adriane Espitia on 01-27-2023 CO2 [Moles/Vol] 25.2 mmol/L 21.0-31.0 [facility] Chloride [Moles/volume] in S brandi or PlasmaOrdered By: Adriane Espitia on 01-27-2023 Chloride [Moles/Vol] 109 mmol/L 98-107 [facility] Cholesterol [Mass/volume] in Serum or PlasmaOrdered By: Adriane Espitia on 01-27-2023 Cholesterol [Mass/Vol] 72 mg/dL 140-200 [facility] Comment on above: Chol less than 200 m g/dl low riskChol 201-239 mg/dl borderline riskChol 240 mg/dl and greater high risk Cholesterol in LDL Calc [Mas s/Vol]Ordered By: Adriane Espitia on 01-27-2023 Cholesterol in LDL [Mass/Vol] 40 mg/dL 0-100 [facility] Comment on above: LDL ATP III CLASSIFI CATIONLDL less than 100 mg/dL OptimalLDL 100-129 mg/dL Near or above optimalLDL 130-159 mg/dL Borderline highLDL 160-189 mg/dL HighLDL greater than 189 mg/dL Very high Cholesterol in VLDL Calc [Ma ss/Vol]Ordered By: Adriane Espitia on 01-27-2023 Cholesterol in VLDL [Mass/Vol] 10 mg/dL [facility] Complete Blood Count Auto Di ffon 01-27-2023 Basophils (Bld) [#/Vol] 0.0 10*3/uL Normal 0.0-0.2 [facility] Comment on above: Order Comment: Diagn osis: D64.9, I48.0, E11.9, K90.81 Comment: [id number], [facility]AN, [facility], , 01/23/23 Performed By: #### C BC, RETIC, B12, CK, ALB, A1C WTH eA, [id number], LIPID, BMP #### [facility] [address] [place] [address] #### CPEP #### [facility] , Basophils/100 WBC (Bld) 0.5 % Normal . [facility] Comment on above: Order Comment: Diagn osis: D64.9, I48.0, E11.9, K90.81 Comment: [id number], [facility]CLAN, [facility], , 01/23/23 Performed By: #### C BC, RETIC, B12, CK, ALB, A1C WTH eA, [id number], LIPID, BMP #### [facility] [address] [place] [address] [place] #### CPEP #### [facility] , Eosinophils (Bld) [#/Vol] 0.1 10*3/uL Normal 0.0-0.45 [facility] Comment on above: Order Comment: Diagn osis: D64.9, I48.0, E11.9, K90.81 Comment: [id number], DECLAN, RM112, , 01/23/23 Performed By: #### C BC, RETIC, B12, CK, ALB, A1C WTH eA, [id number], LIPID, BMP #### [facility] [address] [place] [address] #### CPEP #### [facility] , Eosinophils/100 WBC (Bld) 3.7 % Normal . [facility] Comment on above: Order Comment: Diagn osis: D64.9, I48.0, E11.9, K90. Comment: [id number], OGONTZ, RM112, HM, 01/23/23 Performed By: #### C BC, RETIC, B12, CK, ALB, A1C WTH eA, [id number], LIPID, BMP #### [facility] [address] [place] [address] #### CPEP #### [facility] , Erythrocyte distribution width (RBC) [Ratio] 14.7 % Normal 12.0-14.8 [facility] Comment on above: Order Comment: Diagn osis: D64.9, I48.0, E11.9, K Comment: [id number], OGONTZ, RM112, HM, 01/23/23 Performed By: #### C BC, RETIC, B12, CK, ALB, A1C WTH eA, [id number], LIPID, BMP #### [address] #### CPEP #### [facility] , Hematocrit (Bld) [Volume fraction] 27.4 % Low 38.8-50.0 [facility] Comment on above: Order Comment: Diagn osis: D64.9, I48.0, E11.9, K9081 Comment: [id number], OGONTZ, RM112, HM, 01/23/23 Performed By: #### C BC, RETIC, B12, CK, ALB, A1C WTH eA, [id number], LIPID, BMP #### [address] #### CPEP #### [facility] , Hemoglobin (Bld) [Mass/Vol] 9.1 g/dL Low 13.0-17.0 [facility] Comment on above: Order Comment: Diagn osis: D64.9, I48.0, E11.9, K90. Comment: [id number], OGONTZ, RM112, HM, 01/23/23 Performed By: #### C BC, RETIC, B12, CK, ALB, A1C WTH eA, [id number], LIPID, BMP #### [address] #### CPEP #### [facility] , Lymphocytes (Bld) [#/Vol] 1.1 10*3/uL Normal 1.00-4.8 [facility] Comment on above: Order Comment: Diagn osis: D64.9, I48.0, E11., K Comment: [id number], OGONTZ, RM112, , 01/23/23 Performed By: #### C BC, RETIC, B12, CK, ALB, A1C WTH eA, [id number], LIPID, BMP #### [address] #### CPEP #### [facility] , Lymphocytes/100 WBC (Bld) 27.2 % Normal . [facility] Comment on above: Order Comment: Diagn osis: D64.9, I48.0, E11.9, K Comment: [id number], OGONTZ, RM112, , 01/23/23 Performed By: #### C BC, RETIC, B12, CK, ALB, A1C WTH eA, [id number], LIPID, BMP #### [address] #### CPEP #### [facility] , MCH (RBC) [Entitic mass] 31.7 pg Normal 27.5-35.2 [facility] Comment on above: Order Comment: Diagn osis: D64.9, I48.0, E11., K81 Comment: [id number], OGONTZ, RM112, , 01/23/23 Performed By: #### C BC, RETIC, B12, CK, ALB, A1C WTH eA, [id number], LIPID, BMP #### [facility] [address] [place] [address] #### CPEP #### [facility] , MCV (RBC) [Entitic vol] 95.3 fL Normal 83.5-101 [facility] Comment on above: Order Comment: Diagn osis: D64.9, I48.0, E11.9, K90.81 Comment: [id number], OGONTZ, RM112, HM, 01/23/23 Performed By: #### C BC, RETIC, B12, CK, ALB, A1C WTH eA, [id number], LIPID, BMP #### [facility] [address] [place] [address] #### CPEP #### [facility] , Mean Corpuscular HGB Conc 33.3 g/dL Normal 32.5-35.6 [facility] Comment on above: Order Comment: Diagn osis: D64.9, I48.0, E11.9, K90.81 Comment: [id number], OGONTZ, RM112, HM, 01/23/23 Performed By: #### C BC, RETIC, B12, CK, ALB, A1C WTH eA, [id number], LIPID, BMP #### [address] #### CPEP #### [facility] , Monocytes (Bld) [#/Vol] 0.4 10*3/uL Normal 0.0-0.8 [facility] Comment on above: Order Comment: Diagn osis: D64.9, I48.0, E11.9, K90.81 Comment: [id number], OGONTZ, RM112, HM, 01/23/23 Performed By: #### C BC, RETIC, B12, CK, ALB, A1C WTH eA, [id number], LIPID, BMP #### [place] [address] [place] #### CPEP #### [facility] , Monocytes/100 WBC (Bld) 10.1 % Normal . [facility] Comment on above: Order Comment: Diagn osis: D64.9, I48.0, E11.9, K90.81 Comment: [id number], OGONTZ, RM112, HM, 01/23/23 Performed By: #### C BC, RETIC, B12, CK, ALB, A1C WTH eA, [id number], LIPID, BMP #### [facility] [address] [place] [address] #### CPEP #### [facility] , Neutrophils (Bld) [#/Vol] 2.3 10*3/uL Normal 1.8-7.7 [facility] Comment on above: Order Comment: Diagn osis: D64.9, I48.0, E11.9, K90.81 Comment: [id number], OGMIKHAILZ, RM112, , 01/23/23 Performed By: #### C BC, RETIC, B12, CK, ALB, A1C WTH eA, [id number], LIPID, BMP #### [address] #### CPEP #### [facility] , Neutrophils/100 WBC (Bld) 58.5 % Normal . [facility] Comment on above: Order Comment: Diagn osis: D64.9, I48.0, E11.9, K90.81 Comment: [id number], OGMIKHAILZ, RM112, , 01/23/23 Performed By: #### C BC, RETIC, B12, CK, ALB, A1C WTH eA, [id number], LIPID, BMP #### [place] [address] [place] #### CPEP #### [facility] , NRBC% 0.2 /100{WBC} Normal 0-0.5 [facility] Comment on above: Order Comment: Diagn osis: D64.9, I48.0, E11.9, K90.81 Comment: [id number], OGONTZ, RM112, , 01/23/23 Performed By: #### C BC, RETIC, B12, CK, ALB, A1C WTH eA, [id number], LIPID, BMP #### [facility] [address] [place] [address] #### CPEP #### [facility] , Platelet mean volume (Bld) [Entitic vol] 7.0 fL Normal 6.6-10.1 [facility] Comment on above: Order Comment: Diagn osis: D64.9, I48.0, E11.9, K90.81 Comment: [id number], OGONTZ, RM112, HM, 01/23/23 Performed By: #### C BC, RETIC, B12, CK, ALB, A1C WTH eA, [id number], LIPID, BMP #### [facility] [address] [place] [address] #### CPEP #### [facility] , Platelets (Bld) [#/Vol] 302 10*3/uL Normal 150-450 [facility] Comment on above: Order Comment: Diagn osis: D64.9, I48.0, E11.9, K90.81 Comment: [id number], OGONTZ, RM112, HM, 01/23/23 Performed By: #### C BC, RETIC, B12, CK, ALB, A1C WTH eA, [id number], LIPID, BMP #### [facility] [address] [place] [address] #### CPEP #### [facility] , RBC (Bld) [#/Vol] 2.88 10*6/uL Low 3.90-5.60 [facility] Comment on above: Order Comment: Diagn osis: D64.9, I48.0, E11.9, K90.81 Comment: [id number], OGONTZ, RM112, HM, 01/23/23 Performed By: #### C BC, RETIC, B12, CK, ALB, A1C WTH eA, [id number], LIPID, BMP #### [facility] [address] [place] [address] [place] #### CPEP #### [facility] , WBC (Bld) [#/Vol] 4.0 10*3/uL Low 4.1-10.5 [facility] Comment on above: Order Comment: Diagn osis: D64.9, I48.0, E11.9, K90.81 Comment: [id number], DECLAN, [facility], , 01/23/23 Performed By: #### C BC, RETIC, B12, CK, ALB, A1C WTH eA, [id number], LIPID, BMP #### [facility] [address] [place] [address] #### CPEP #### [facility] , Creatine Kinaseon 01-27-2023 CK [Catalytic activity/Vol] 59 U/L Normal [facility] Comment on above: Order Comment: Diagn osis: D64.9, I48.0, E11.9, K90.81 Comment: [id number], OGMIKHAILZ, [facility], , 01/23/23 Result Comment: PERF ORMED BY: [place] [address] PATHOLOGIST PSYCH TECH ESTIVEN GENTILE M.D. Performed By: #### C BC, RETIC, B12, CK, ALB, A1C WTH eA, [id number], LIPID, BMP #### [address] #### CPEP #### [facility] , Creatine kinase [Enzymatic a ctivity/volume] in Serum or PlasmaOrdered By: Adriane Espitia on 01-27-2023 CK [Catalytic activity/Vol] 59 U/L [facility] Creatinine [Mass/volume] in Serum or PlasmaOrdered By: Adriane Espitia on 01-27-2023 Creatinine [Mass/Vol] 0.66 mg/dL 0.70-1.30 [facility] Eosinophils Auto (Bld) [#/Vo l]Ordered By: Adriane Espitia on 01-27-2023 Eosinophils (Bld) [#/Vol] 0.1 10*3/uL 0.0-0.45 [facility] Eosinophils/100 WBC Auto (Bl d)Ordered By: Adriane Espitia on 01-27-2023 Eosinophils/100 WBC (Bld) 3.7 % . [facility] Erythrocyte distribution wid th Auto (RBC) [Ratio]Ordered By: Adriane Espitia on 01-27-2023 Erythrocyte distribution width (RBC) [Ratio] 14.7 % 12.0-14.8 [facility] Glucose [Mass/volume] in Ser um or PlasmaOrdered By: Adriane Espitia on 01-27-2023 Glucose [Mass/Vol] 111 mg/dL 70-100 [facility] Comment on above: ADA recommended [...] from glycated hemoglobin (Bld) [Mass/Vol] 151 mg/dL [facility] Hematocrit Auto (Bld) [Volum e fraction]Ordered By: Adriane Espitia on 01-27-2023 Hematocrit (Bld) [Volume fraction] 27.4 % 38.8-50.0 [facility] Hemoglobin A1c percentageOrd ered By: Adriane Espitia on 01-27-2023 HbA1c (Bld) [Mass fraction] 6.9 % 4.3-5.6 [facility] Comment on above: Increased risk for d iabetes: 5.7 - 6.4diabetes: >6.4glycemic control for adults with diabetes: <7.0 Hemoglobin [Mass/volume] in BloodOrdered By: Adriane Espitia on 01-27-2023 Hemoglobin (Bld) [Mass/Vol] 9.1 g/dL 13.0-17.0 [facility] Leukocytes [#/volume] correc missael for nucleated erythrocytes in Blood by Automated counOrdered By: Adriane Espitia on 01-27-2023 WBC corrected for nucl RBC Auto (Bld) [#/Vol] 4.0 10*3/uL 4.1-10.5 [facility] Lipid Panelon 01-27-2023 Cholesterol [Mass/Vol] 72 mg/dL Low 140-200 [facility] Comment on above: Order Comment: Diagn osis: D64.9, I48.0, E11.9, K90.81 Comment: [id number], DECLAN Robinson, , 01/23/23 Result Comment: Chol less than 200 mg/dl low risk Chol 201-239 mg/dl borderline risk Chol 240 mg/dl and greater high risk Performed By: #### C BC, RETIC, B12, CK, ALB, A1C WTH eA, [id number], LIPID, BMP #### [facility] [address] #### CPEP #### [facility] , Cholesterol in HDL [Mass/Vol] 22 mg/dL Low 23-92 [facility] Comment on above: Order Comment: Diagn osis: D64.9, I48.0, E11.9, K90.81 Comment: [id number], DECLAN Robinson, , 01/23/23 Result Comment: HDL CHOL ATP-III CLASSIFICATION Cardiovascular Risk HDL > or equal to 60 mg/dL LOW HDL < 40 mg/dL HIGH Performed By: #### C BC, RETIC, B12, CK, ALB, A1C WTH eA, [id number], LIPID, BMP #### [facility] [address] [place] [address] #### CPEP #### [facility] , Cholesterol.total/Cho lesterol in HDL [Mass ratio] 3.3 {ratio} Normal <5.0 [facility] Comment on above: Order Comment: Diagn osis: D64.9, I48.0, E11.9, K90.81 Comment: [id number], DECLAN Robinson, , 01/23/23 Performed By: #### C BC, RETIC, B12, CK, ALB, A1C WTH eA, [id number], LIPID, BMP #### [place] [id number] [place] #### CPEP #### [facility] , LDL Cholesterol,Calculate d 40 mg/dL Normal 0-100 [facility] Comment on above: Order Comment: Diagn osis: D64.9, I48.0, E11.9, K90.81 Comment: DECLAN Lo [id number], , 01/23/23 Result Comment: LDL ATP III CLASSIFICATION LDL less than 100 mg/dL Optimal LDL 100-129 mg/dL Near or above optimal LDL 130-159 mg/dL Borderline high LDL 160-189 mg/dL High LDL greater than 189 mg/dL Very high Performed By: #### C BC, RETIC, B12, CK, ALB, A1C WTH eA, [id number], LIPID, BMP #### [facility] [address] [place] [address] #### CPEP #### [facility] , Triglyceride w/Reflex 52 mg/dL Normal 0-149 [facility] Comment on above: Order Comment: Diagn osis: D64.9, I48.0, E11.9, K90.81 Comment: DECLAN Lo [id number], , 01/23/23 Result Comment: TRIG ATP III CLASSIFICATION TRIG less than 150 mg/dL Normal TRIG 150-199 mg/dL Borderline high TRIG 200-500 mg/dL High TRIG greater than 500 mg/dL Very high Standard traceable to the Center for Disease Conrtrol and Prevention (CDC) test method. Performed By: #### C BC, RETIC, B12, CK, ALB, A1C WTH eA, [id number], LIPID, BMP #### [place] [address] [place] #### CPEP #### [facility] , VLDL CHOLESTEROL 10 mg/dL Normal [facility] Comment on above: Order Comment: Diagn osis: D64.9, I48.0, E11.9, K90.81 Comment: DECLAN Lo RM112, , 01/23/23 Performed By: #### C BC, RETIC, B12, CK, ALB, A1C WTH eA, [id number], LIPID, BMP #### [place] [address] [place] #### CPEP #### [facility] , Lymphocytes Auto (Bld) [#/Vo l]Ordered By: Adriane Espitia on 01-27-2023 Lymphocytes (Bld) [#/Vol] 1.1 10*3/uL 1.00-4.8 [facility] Lymphocytes/100 WBC Auto (Bl d)Ordered By: Adriane Espitia on 01-27-2023 Lymphocytes/100 WBC (Bld) 27.2 % . [facility] MCH Auto (RBC) [Entitic mass ]Ordered By: Adriane Espitia on 01-27-2023 MCH (RBC) [Entitic mass] 31.7 pg 27.5-35.2 [facility] MCHC Auto (RBC) [Mass/Vol]Or dered By: Adriane Espitia on 01-27-2023 MCHC (RBC) [Mass/Vol] 33.3 g/dL 32.5-35.6 [facility] MCV Auto (RBC) [Entitic vol] Ordered By: Adriane Espitia on 01-27-2023 MCV (RBC) [Entitic vol] 95.3 fL 83.5-101 [facility] Monocytes Auto (Bld) [#/Vol] Ordered By: Adriane Espitia on 01-27-2023 Monocytes (Bld) [#/Vol] 0.4 10*3/uL 0.0-0.8 [facility] Monocytes/100 WBC Auto (Bld) Ordered By: Adriane Espitia on 01-27-2023 Monocytes/100 WBC (Bld) 10.1 % . [facility] Neutrophils Auto (Bld) [#/Vo l]Ordered By: Adriane Espitia on 01-27-2023 Neutrophils (Bld) [#/Vol] 2.3 10*3/uL 1.8-7.7 [facility] Neutrophils/100 WBC Auto (Bl d)Ordered By: Adriane Espitia on 01-27-2023 Neutrophils/100 WBC (Bld) 58.5 % . [facility] No Panel InformationOrdered By: Adriane Espitia on 01-27-2023 C-Peptide 1.4 ng/mL 1.1-4.4 [facility] Comment on above: C-Peptide reference interval is for fasting patients.Performed at: [place] [id number] [place], [place] [id number] Director: Silverio Mario PhD, Phone: [phone] Estimated GFR (CKD-EPI) > 60.0 mL/Min [facility] Creatinine Clearance (Chem N/A [facility] Nucleated erythrocytes [Pres ence] in Blood by Automated countOrdered By: Adriane Espitia on 01-27-2023 Nucleated RBC Auto Ql (Bld) 0.2 /100{WBC} 0-0.5 [facility] Platelet mean volume Auto (B ld) [Entitic vol]Ordered By: Adriane Espitia on 01-27-2023 Platelet mean volume (Bld) [Entitic vol] 7.0 fL 6.6-10.1 [facility] Platelets Auto (Bld) [#/Vol] Ordered By: Adriane Espitia on 01-27-2023 Platelets (Bld) [#/Vol] 302 10*3/uL 150-450 [facility] Potassium [Moles/volume] in Serum or PlasmaOrdered By: Adriane Espitia on 01-27-2023 Potassium [Moles/Vol] 4.3 mmol/L 3.5-5.1 [facility] RBC Auto (Bld) [#/Vol]Ordere d By: Adriane Espitia on 01-27-2023 RBC (Bld) [#/Vol] 2.88 10*6/uL 3.90-5.60 [facility] Reticulocyte Counton 023 Reticulocyte Number 0.035 10*6/uL Normal 0.024-0 .08 4 [facility] Comment on above: Order Comment: Diagn osis: D64.9, I48.0, E11.9, K90.81 Comment: [id number], DECLAN, RM112, , 01/23/23 Result Comment: PERF ORMED BY: [address] [address] PATHOLOGIST PSYCH TECH ESTIVEN GENTILE M.D. Performed By: #### C BC, RETIC, B12, CK, ALB, A1C WTH eA, [id number], LIPID, BMP #### [facility] [address] [place] [id number] [facility] #### CPEP #### [facility] , Reticulocyte Percent 1.2 % Normal 0.5-1.5 [facility] Comment on above: Order Comment: Diagn osis: D64.9, I48.0, E11.9, K90.81 Comment: [id number], OGONTZ, RM112, HM, 01/23/23 Performed By: #### C BC, RETIC, B12, CK, ALB, A1C WTH eA, [id number], LIPID, BMP #### [facility] [address] [place] [id number] [facility] #### CPEP #### [facility] , Reticulocytes/100 RBC Auto ( Bld)Ordered By: Adriane Espitia on 01-27-2023 Reticulocytes/100 RBC (Bld) 1.2 % 0.5-1.5 [facility] Serum or plasma anion gap de terminationOrdered By: Adriane Espitia on 01-27-2023 Anion gap [Moles/Vol] 7.1 mmol/L 6.0-15.0 [facility] Serum or plasma high density lipoprotein (HDL) cholesterol measurementOrdered By: Adriane Espitia on 01-27-2023 Cholesterol in HDL [Mass/Vol] 22 mg/dL 23-92 [facility] Comment on above: HDL CHOL ATP-III CLA SSIFICATION Cardiovascular RiskHDL > or equal to 60 mg/dL LOWHDL < 40 mg/dL HIGH Serum or plasma total choles terol/high density lipoprotein (HDL) cholesterol mass ratOrdered By: Adriane Espitia on 01-27-2023 Cholesterol.total/Cho lesterol in HDL [Mass ratio] 3.3 {ratio} <5.0 [facility] Sodium [Moles/volume] in Ser um or PlasmaOrdered By: Adriane Espitia on 01-27-2023 Sodium [Moles/Vol] 137 mmol/L 136-145 [facility] Triglyceride [Mass/volume] i n Serum or PlasmaOrdered By: Adriane Espitia on 01-27-2023 Triglyceride [Mass/Vol] 52 mg/dL 0-149 [facility] Comment on above: TRIG ATP III CLASSIF ICATIONTRIG less than 150 mg/dL NormalTRIG 150-199 mg/dL Borderline highTRIG 200-500 mg/dL High TRIG greater than 500 mg/dL Very highStandard traceable to the Center for Disease Conrtrol and Prevention (CDC) test method. Urea nitrogen [Mass/volume] in Serum or PlasmaOrdered By: Adriane Espitia on 01-27-2023 Urea nitrogen [Mass/Vol] 16 mg/dL 7-25 [facility] Vitamin B12on 01-27-2023 Cobalamin (Vitamin B12) [Mass/Vol] 498 pg/mL Normal 180-914 [facility] Comment on above: Order Comment: Diagn osis: E11.9, I10, E46, D64.9 Comment: [id number] RM112, , 02/06/23 Performed By: #### A LB, CBC, BMP #### [facility] [address] [place], [place] [id number] [facility] Vitamin B12 ser/plasOrdered By: Adriane Espitia on 01-27-2023 Cobalamin (Vitamin B12) [Mass/Vol] 498 pg/mL 180-914 [facility] Vitamin D 25 Hydroxy Totalon 01-27-2023 Vitamin D 25 Hydroxy Total < 7.0 Low 30-100 [facility] Comment on above: Order Comment: Diagn osis: E11.9, I10, E46, D64.9 Comment: [id number] Robinson, , 02/06/23 Result Comment: TAYLER MIN D STATUS 25(OH)VITAMIN D RANGE (ng/mL) Deficient <20 Insufficient 20 to <30 Sufficient 30 to 100 Reference: Janny MF,Carmen NC, Brant CAMPUZANO, et al. Evaluation,treatment, and prevention of vitamin D deficiency; an Endocrine Society clinical practice guideline. JCEM. 2010; 96(7):1911-30. PERFORMED BY: [place] [address] PATHOLOGIST PSYCH TECH ESTIVEN GENTILE M.D. Performed By: #### A LB, CBC, BMP #### [facility] [address] [place], [place] [address] Vitamin D+Metabolites [Mass/ volume] in Serum or PlasmaOrdered By: Adriane Espitia on 01-27-2023 Vitamin D+Metabolites [Mass/Vol] < 7.0 ng/mL 30-100 [facility] Comment on above: VITAMIN D STATUS 25( [place])VITAMIN D RANGE (ng/mL) Deficient <20 Insufficient 20 to <30Sufficient 30 to 100Reference: Janny MF,Carmen NC, Brant CAMPUZANO, et al. Evaluation,treatment, and prevention of vitamin D deficiency; an Endocrine Society clinical practice guideline. JCEM. 2010; 96(7):1911-30. 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 Vitamin D3 1.25 MG (29942 UT) Oral CapsuleTAKE 1 CAPSULE Daily Xanax [...] Recorded: 16Sep2022 11:33AM Heart Rate78, L Radial Lymrgtzh386, LUE, Sitting Ccvykpfcp05, LUE, Sitting Height5 ft 8 in Rbafgf533 lb BMI Zklhkeenhi32.05 kg/m2 BSA Calculated1.78 Tobacco Useb) No PHQ-2 [...] auscultation. Cardiovascul (more content not included)... Normal [facility] BNPon 07-12-2022 Natriuretic peptide B (Bld) [Mass/Vol] 3610.0 pg/mL Critically high <=900.0 [facility] Comment on above: Performed By: #### P T, PTT #### [facility] [address] [place] [address] Dr. Mel Barrientos CBC AUTO DIFFon 07-12-2022 BASO # 0.0 103/ul Normal 0.0-0.1 [facility] Comment on above: Performed By: #### C BC #### [facility] [address] [place] [address] [address] Mel Barrientos Basophils/100 WBC (Bld) 0.4 % Normal 0.2-2.0 [facility] Comment on above: Performed By: #### C BC #### [facility] [address] [place] [address] Dr. Mel Barrientos EO # 0.1 103/ul Normal 0.0-0.7 [facility] Comment on above: Performed By: #### C BC #### [facility] [address] [place] [address] Dr. Mel Barrientos Eosinophils/100 WBC (Bld) 3.5 % Normal 0.9-7.0 [facility] Comment on above: Performed By: #### C BC #### [facility] [address] [place] [address] Dr. Mel Barrientos Erythrocyte distribution width (RBC) [Ratio] 12.9 % Normal 11.0-15.0 [facility] Comment on above: Performed By: #### C BC #### [facility] [address] [place] [address] Dr. Mel Barrientos Hematocrit (Bld) [Volume fraction] 25.4 % Critically low 42.0-54.0 [facility] Comment on above: Performed By: #### C BC #### [facility] [address] [place] [address] Dr. Mel Barrientos Hemoglobin (Bld) [Mass/Vol] 8.3 g/dL Critically low 14.0-18.0 [facility] Comment on above: Performed By: #### C BC #### [facility] [address] [place] [address] Dr. Mel Barrientos IG # 0.00 10e3/ul Normal 0.00-0.03 [facility] Comment on above: Performed By: #### C BC #### [facility] [address] [place] [address] Dr. Mel Barrientos IG % 0.0 % Normal 0.0-0.5 [facility] Comment on above: Performed By: #### C BC #### [facility] [address] [place] [address] Dr. Mel Barrientos LYMPH # 1.0 103/ul Critically low 1.2-3.8 [facility] Comment on above: Performed By: #### C BC #### [facility] [address] [place] [address] Dr. Mel Barrientos Lymphocytes/100 WBC (Bld) 35.0 % Normal 20.5-60.0 [facility] Comment on above: Performed By: #### C BC #### [facility] [address] [place] [address] Dr. Mel Barrientos MANUAL DIFF REQ NO Normal [facility] Comment on above: Performed By: #### C BC #### [facility] [address] [place] [address] Dr. Mel Barrientos MCH (RBC) [Entitic mass] 33.5 pg Normal 25.9-34.0 [facility] Comment on above: Performed By: #### C BC #### [facility] [address] [place] [address] Dr. Mel Barrientos MCHC (RBC) [Mass/Vol] 32.7 g/dL Normal 29.9-35.2 [facility] Comment on above: Performed By: #### C BC #### [facility] [address] [place] [address] Dr. Mel Barrientos MCV (RBC) [Entitic vol] 102.4 fL Critically high 80.0-94.0 [facility] Comment on above: Performed By: #### C BC #### [facility] Laboratory [address] [place] [address] Dr. Mel Barrientos MONO # 0.5 103/ul Normal 0.3-0.8 [facility] Comment on above: Performed By: #### C BC #### [facility] [address] [place] [address] Dr. Mel Barrientos Monocytes/100 WBC (Bld) 18.7 % Critically high 1.7-12.0 [facility] Comment on above: Performed By: #### C BC #### [facility] [address] [place] [address] Dr. Mel Barrientos NEUT # 1.2 103/ul Critically low 1.4-6.5 [facility] Comment on above: Performed By: #### C BC #### [facility] [address] [address] [address] Mel Barrientos Neutrophils/100 WBC (Bld) 42.4 % Critically low 43.0-75.0 [facility] Comment on above: Performed By: #### C BC #### [facility] [address] [address] [address] Mel Barrientos Platelet mean volume (Bld) [Entitic vol] 8.6 fL Critically low 9.5-13.5 [facility] Comment on above: Performed By: #### C BC #### [facility] [address] [place] [address] Dr. Mel Barrientos PLT 208 103/ul Normal 150-450 [facility] Comment on above: Performed By: #### C BC #### [facility] [address] [place] [address] Dr. Mel Barrientos RBC 2.48 106/ul Critically low 4.70-6.10 [facility] Comment on above: Performed By: #### C BC #### [facility] [address] [place] [address] Dr. Mel Barrientos WBC 2.8 103/ul Critically low 4.0-11.0 [facility] Comment on above: Performed By: #### C BC #### [facility] [address] [place] [address] Dr. Mel Barrientos LIPID PROFILEon 07-12-2022 CHOL-HDL RATIO NORM SEE BELOW Normal [facility] Comment on above: Result Comment: 3.3 - 4.4 LOW RISK 4.4 - 7.1 AVERAGE RISK 7.1 - 11.0 MODERATE RISK >11.0 HIGH RISK Performed By: #### P T, PTT #### [facility] [address] [place] [address] Dr. Mel Barrientos Cholesterol [Mass/Vol] 74 mg/dL Normal <=200 [facility] Comment on above: Performed By: #### P T, PTT #### [facility] [address] [place] [address] Dr. Mel Barrientos Cholesterol in HDL [Mass/Vol] 24 mg/dL Critically low 40-60 [facility] Comment on above: Performed By: #### P T, PTT #### [facility] [address] [address] [address] Mel Barrientos Cholesterol in LDL [Mass/Vol] 36.8 mg/dL Normal [facility] Comment on above: Performed By: #### P T, PTT #### [facility] [address] [address] [address] Mel Barrientos Cholesterol.total/Cho lesterol in HDL [Mass ratio] 3.1 {ratio} Normal [facility] Comment on above: Performed By: #### P T, PTT #### [facility] [address] [address] [address] Mel Barrientos HDL NORMAL > or = 60 mg/dl - LO W CARDIOVASCULAR RISK <40 mg/dl - HIGH CARDIOVASCULAR RISK Normal [facility] Comment on above: Performed By: #### P T, PTT #### [facility] [address] [place] [address] Dr. Mel Barrientos LDL CALC NORMAL SEE BELOW Normal [facility] Comment on above: Result Comment: <100 mg/dl OPTIMAL 100 - 129 mg/dl NEAR OR ABOVE OPTIMAL 130 - 159 mg/dl BORDERLINE HIGH 160 - 189 mg/dl HIGH >190 mg/dl VERY HIGH Performed By: #### P T, PTT #### [facility] [address] [address] [address] Mel Barrientos Triglyceride [Mass/Vol] 66 mg/dL Normal <=150 [facility] Comment on above: Performed By: #### P T, PTT #### [facility] [address] [address] [address] Mel Barrientos VLDL CALC 13.2 mg/dL Normal [facility] Comment on above: Performed By: #### P T, PTT #### [facility] [address] [place] [address] Dr. Mel Barrientos PROF 14(COMP METB)on 023 Albumin [Mass/Vol] 2.7 g/dL Critically low 3.4-5.0 [facility] Comment on above: Performed By: #### P T, PTT #### [facility] [address] [address] [address] Mel Barrientos Albumin/Globulin [Mass ratio] 0.7 {ratio} Normal [facility] Comment on above: Performed By: #### P T, PTT #### [facility] [address] [address] [address] Mel Barrientos ALP [Catalytic activity/Vol] 128 U/L Critically high 46-116 [facility] Comment on above: Performed By: #### P T, PTT #### [facility] [address] [address] [address] Mel Barrientos ALT [Catalytic activity/Vol] 37 U/L Normal 16-63 [facility] Comment on above: Performed By: #### P T, PTT #### [facility] [address] [address] [address] Mel Barrientos Anion gap [Moles/Vol] 11.6 mmol/L Normal [facility] Comment on above: Performed By: #### P T, PTT #### [facility] [address] [address] [address] Mel Barrientos AST [Catalytic activity/Vol] 24 U/L Normal 15-37 [facility] Comment on above: Performed By: #### P T, PTT #### [facility] [address] [address] [address] Mel Barrientos Bilirubin [Mass/Vol] 0.3 mg/dL Normal 0.2-1.0 [facility] Comment on above: Performed By: #### P T, PTT #### [facility] [address] [address] [address] Mel Barrientos Calcium [Mass/Vol] 8.4 mg/dL Critically low 8.5-10.1 [facility] Comment on above: Performed By: #### P T, PTT #### [facility] [address] [address] [address] Mel Barrientos Chloride [Moles/Vol] 100 mmol/L Normal 98-107 [facility] Comment on above: Performed By: #### P T, PTT #### [facility] [address] [address] [address] Mel Barrientos CO2 [Moles/Vol] 24.5 mmol/L Normal 21.0-32.0 [facility] Comment on above: Performed By: #### P T, PTT #### [facility] [address] [address] [address] Mel Barrientos Creatinine [Mass/Vol] 0.80 mg/dL Normal 0.70-1.30 [facility] Comment on above: Performed By: #### P T, PTT #### [facility] [address] [address] [address] Mel Barrientos EGFR-AF MALDIVIAN >60 Normal >=60 [facility] Comment on above: Performed By: #### P T, PTT #### [facility] [address] [address] [address] Mel Barrientos EGFR-NON AF MALDIVIAN >60 Normal >=60 [facility] Comment on above: Performed By: #### P T, PTT #### [facility] [address] [address] [address] Mel Barrientos Globulin (S) [Mass/Vol] 3.8 g/dL Normal [facility] Comment on above: Performed By: #### P T, PTT #### [facility] [address] [address] [address] Mel Barrientos Glucose [Mass/Vol] 134 mg/dL Critically high 74-106 [facility] Comment on above: Performed By: #### P T, PTT #### [facility] [address] [address] [address] Mel Barrientos Potassium [Moles/Vol] 4.1 mmol/L Normal 3.5-5.1 [facility] Comment on above: Performed By: #### P T, PTT #### [facility] [address] [address] [address] Mel Barrientos Protein [Mass/Vol] 6.5 g/dL Normal 6.4-8.2 [facility] Comment on above: Performed By: #### P T, PTT #### [facility] [address] [place] [address] Dr. Mel Barrientos Sodium [Moles/Vol] 132 mmol/L Critically low 136-145 [facility] Comment on above: Performed By: #### P T, PTT #### [facility] [address] [place] [address] Dr. Mel Barrientos Urea nitrogen [Mass/Vol] 19.0 mg/dL Critically high 7.0-18.0 [facility] Comment on above: Performed By: #### P T, PTT #### [facility] [address] [place] [address] Dr. Mel Barrientos Urea nitrogen/Creatinine [Mass ratio] 23.8 mg/mg Normal [facility] Comment on above: Performed By: #### P T, PTT #### [facility] [address] [place] [address] Dr. Mel Barrientos T4on 07-12-2022 T4 [Mass/Vol] 5.90 ug/dL Normal 4.50-12.10 [facility] Comment on above: Performed By: #### P T, PTT #### [facility] [address] [place] [address] Dr. Mel Barrientos TSHon 07-12-2022 TSH 3.686 uIU/mL Normal 0.358-3.74 0 [facility] Comment on above: Performed By: #### P T, PTT #### [facility] [address] [place] [address] Dr. Mel Barrientos BNPon 07-11-2022 Natriuretic peptide B (Bld) [Mass/Vol] 1694.0 pg/mL Critically high <=900.0 [facility] Comment on above: Performed By: #### L IPID, CMP #### [facility] [address] [place] [address] Dr. Mel Barrientos CARDIAC SUSHILA 3-6on 3 CK [Catalytic activity/Vol] 139 U/L Normal 39-308 [facility] Comment on above: Performed By: #### C MREP #### [facility] [address] [place] [address] Dr. Mel Barrientos CK.MB [Mass/Vol] 1.99 ng/mL Normal <=3.60 [facility] Comment on above: Performed By: #### C MREP #### [facility] [address] [place] [address] Dr. Mel Barrientos HSTROP 6.9 pg/mL Normal 4.0-76.1 [facility] Comment on above: Result Comment: CUT- OFF POINTS HAVE BEEN ESTABLISHED BASED ON THE FOURTH UNIVERSAL DEFINITIONS OF MYOCARDIAL INFARCTION. THE UPPER REFERENCE LIMIT (URL) OF TROPONIN, DEFINED THE 99TH PERCENTILE OF cTnI DISTRIBUTION IN A REFERENCE POPULATION, HAS BEEN CONFIRMED THE DECISION THRESHOLD FOR OR DIAGNOSIS. Performed By: #### C MREP #### [facility] [address] [place] [address] Dr. Mel Barrientos CK [Catalytic activity/Vol] 127 U/L Normal 39-308 [facility] Comment on above: Performed By: #### P T, PTT #### [facility] [address] [place] [address] Dr. Mel Barrientos CK.MB [Mass/Vol] 2.30 ng/mL Normal <=3.60 [facility] Comment on above: Performed By: #### P T, PTT #### [facility] [address] [place] [address] Dr. Mel Barrientos HSTROP 6.3 pg/mL Normal 4.0-76.1 [facility] Comment on above: Result Comment: CUT- OFF POINTS HAVE BEEN ESTABLISHED BASED ON THE FOURTH UNIVERSAL DEFINITIONS OF MYOCARDIAL INFARCTION. THE UPPER REFERENCE LIMIT (URL) OF TROPONIN, DEFINED THE 99TH PERCENTILE OF cTnI DISTRIBUTION IN A REFERENCE POPULATION, HAS BEEN CONFIRMED THE DECISION THRESHOLD FOR OR DIAGNOSIS. Performed By: #### P T, PTT #### [facility] [address] [place] [address] Dr. Mel Barrientos CBC AUTO DIFFon 07-11-2022 BASO # 0.0 103/ul Normal 0.0-0.1 [facility] Comment on above: Performed By: #### C BC #### [facility] [address] [place] [address] Dr. Mel Barrientos Basophils/100 WBC (Bld) 0.3 % Normal 0.2-2.0 [facility] Comment on above: Performed By: #### C BC #### [facility] [address] [place] [address] Dr. Mel Barrientos EO # 0.1 103/ul Normal 0.0-0.7 [facility] Comment on above: Performed By: #### C BC #### [facility] [address] [place] [address] Dr. Mel Barrientos Eosinophils/100 WBC (Bld) 3.7 % Normal 0.9-7.0 [facility] Comment on above: Performed By: #### C BC #### [facility] [address] [place] [address] Dr. Mel Barrientos Erythrocyte distribution width (RBC) [Ratio] 13.3 % Normal 11.0-15.0 [facility] Comment on above: Performed By: #### C BC #### [facility] [address] [place] [address] Dr. Mel Barrientos Hematocrit (Bld) [Volume fraction] 31.7 % Critically low 42.0-54.0 [facility] Comment on above: Performed By: #### C BC #### [facility] [address] [place] [address] Dr. Mel Barrientos Hemoglobin (Bld) [Mass/Vol] 9.3 g/dL Critically low 14.0-18.0 [facility] Comment on above: Performed By: #### C BC #### [facility] [address] [place] [address] Dr. Mel Barrientos IG # 0.01 10e3/ul Normal 0.00-0.03 [facility] Comment on above: Performed By: #### C BC #### [facility] [address] [place] [address] Dr. Mel Barrientos IG % 0.3 % Normal 0.0-0.5 [facility] Comment on above: Performed By: #### C BC #### [facility] [address] [place] [address] Dr. Mel Barrientos LYMPH # 1.0 103/ul Critically low 1.2-3.8 [facility] Comment on above: Performed By: #### C BC #### [facility] [address] [place] [address] Dr. Mel Barrientos Lymphocytes/100 WBC (Bld) 26.1 % Normal 20.5-60.0 [facility] Comment on above: Performed By: #### C BC #### [facility] [address] [place] [address] Dr. Mel Barrientos MANUAL DIFF REQ NO Normal [facility] Comment on above: Performed By: #### C BC #### [facility] [address] [place] [address] Dr. Mel Barrientos MCH (RBC) [Entitic mass] 33.9 pg Normal 25.9-34.0 [facility] Comment on above: Performed By: #### C BC #### [facility] [address] [place] [address] Dr. Mel Barrientos MCHC (RBC) [Mass/Vol] 29.3 g/dL Critically low 29.9-35.2 [facility] Comment on above: Performed By: #### C BC #### [facility] [address] [place] [address] Dr. Mel Barrientos MCV (RBC) [Entitic vol] 115.7 fL Critically high 80.0-94.0 [facility] Comment on above: Performed By: #### C BC #### [facility] [address] [place] [address] Dr. Mel Barrientos MONO # 0.5 103/ul Normal 0.3-0.8 [facility] Comment on above: Performed By: #### C BC #### [facility] [address] [place] [address] Dr. Mel Barrientos Monocytes/100 WBC (Bld) 13.3 % Critically high 1.7-12.0 [facility] Comment on above: Performed By: #### C BC #### [facility] [address] [place] [address] Dr. Mel Barrientos NEUT # 2.1 103/ul Normal 1.4-6.5 [facility] Comment on above: Performed By: #### C BC #### [facility] [address] [place] [address] Dr. Mel Barrientos Neutrophils/100 WBC (Bld) 56.3 % Normal 43.0-75.0 [facility] Comment on above: Performed By: #### C BC #### [facility] [address] [place] [address] Dr. Mel Barrientos Platelet mean volume (Bld) [Entitic vol] 9.2 fL Critically low 9.5-13.5 [facility] Comment on above: Performed By: #### C BC #### [facility] [address] [place] [address] Dr. Mel Barrientos PLT 259 103/ul Normal 150-450 [facility] Comment on above: Performed By: #### C BC #### [facility] [address] [place] [address] Dr. Mel Barrientos RBC 2.74 106/ul Critically low 4.70-6.10 [facility] Comment on above: Performed By: #### C BC #### [facility] [address] [place] [address] Dr. Mel Barrientos WBC 3.8 103/ul Critically low 4.0-11.0 [facility] Comment on above: Performed By: #### C BC #### [facility] [address] [place] [address] Dr. Mel Barrientos [facility] SARS-CoV-2 (COVID-19) RNA NE+probe Ql (Unsp spec) Not detected Normal NOT DETECTED [facility] Comment on above: Result Comment: When diagnostic [...] for this test is supported by the [employer] of [employer] and Human Service's declaration that [...] Performed By: #### P T, PTT #### [facility] [address] [place] [address] Dr. Mel Barrientos GLYCOHEMOGLOBIN A1Con 2022 ADA RECOMMENDATION SEE BELOW Normal [facility] Comment on above: Result Comment: ADA RECOMMENDED LIMIT 4.0 - 6.0 ADA THERAPEUTIC TARGET < 7.0 ACTION SUGGESTED > 7.0 Performed By: #### L IPID, CMP #### [facility] [address] [place] [address] Dr. Mel Barrientos Glucose [Mass/Vol] 128 mg/dL Normal [facility] Comment on above: Performed By: #### L IPID, CMP #### [facility] [address] [place] [address] Dr. Mel Barrientos HbA1c (Bld) [Mass fraction] 6.1 % Normal 4.5-6.2 [facility] Comment on above: Performed By: #### L IPID, CMP #### [facility] [address] [place] [address] Dr. Mel Barrientos LIPASEon 07-11-2022 Lipase [Catalytic activity/Vol] 10.0 U/L Critically low 73.0-393.0 [facility] Comment on above: Performed By: #### L IPID, CMP #### [facility] [address] [place] [address] Dr. Mel Barrientos PROF 14(COMP METB)on 023 Albumin [Mass/Vol] 3.1 g/dL Critically low 3.4-5.0 [facility] Comment on above: Performed By: #### L IPID, CMP #### [facility] [address] [address] [address] Mel Barrientos Albumin/Globulin [Mass ratio] 0.7 {ratio} Normal [facility] Comment on above: Performed By: #### L IPID, CMP #### [facility] [address] [address] [address] Mel Barrientos ALP [Catalytic activity/Vol] 143 U/L Critically high 46-116 [facility] Comment on above: Performed By: #### L IPID, CMP #### [facility] [address] [address] [address] Mel Barrientos ALT [Catalytic activity/Vol] 52 U/L Normal 16-63 [facility] Comment on above: Performed By: #### L IPID, CMP #### [facility] [address] [address] [address] Mel Barrientos Anion gap [Moles/Vol] 12.7 mmol/L Normal [facility] Comment on above: Performed By: #### L IPID, CMP #### [facility] [address] [place] [address] Dr. Mel Barrientos AST [Catalytic activity/Vol] 31 U/L Normal 15-37 [facility] Comment on above: Performed By: #### L IPID, CMP #### [facility] [address] [address] [address] Mel Barrientos Bilirubin [Mass/Vol] 0.3 mg/dL Normal 0.2-1.0 [facility] Comment on above: Performed By: #### L IPID, CMP #### [facility] [address] [place] [address] Dr. Mel Barrientos Calcium [Mass/Vol] 8.6 mg/dL Normal 8.5-10.1 [facility] Comment on above: Performed By: #### L IPID, CMP #### [facility] [address] [address] [address] Mel Barrientos Chloride [Moles/Vol] 103 mmol/L Normal 98-107 [facility] Comment on above: Performed By: #### L IPID, CMP #### [facility] [address] [address] [address] Mel Barrientos CO2 [Moles/Vol] 24.7 mmol/L Normal 21.0-32.0 [facility] Comment on above: Performed By: #### L IPID, CMP #### [facility] [address] [address] [address] Mel Barrientos Creatinine [Mass/Vol] 0.90 mg/dL Normal 0.70-1.30 [facility] Comment on above: Performed By: #### L IPID, CMP #### [facility] [address] [address] [address] Mel Barrientos EGFR-AF MALDIVIAN >60 Normal >=60 [facility] Comment on above: Performed By: #### L IPID, CMP #### [facility] [address] [address] [address] Mel Barrientos EGFR-NON AF MALDIVIAN >60 Normal >=60 [facility] Comment on above: Performed By: #### L IPID, CMP #### [facility] [address] [place] [address] Dr. Mel Barrientos Globulin (S) [Mass/Vol] 4.2 g/dL Normal [facility] Comment on above: Performed By: #### L IPID, CMP #### [facility] [address] [address] [address] Mel Barrientos Glucose [Mass/Vol] 204 mg/dL Critically high 74-106 [facility] Comment on above: Performed By: #### L IPID, CMP #### [facility] [address] [address] [address] Mel Barrientos Potassium [Moles/Vol] 4.4 mmol/L Normal 3.5-5.1 [facility] Comment on above: Performed By: #### L IPID, CMP #### [facility] [address] [place] [address] Dr. Mel Barrientos Protein [Mass/Vol] 7.3 g/dL Normal 6.4-8.2 [facility] Comment on above: Performed By: #### L IPID, CMP #### [facility] [address] [place] [address] Dr. Mel Barrientos Sodium [Moles/Vol] 136 mmol/L Normal 136-145 [facility] Comment on above: Performed By: #### L IPID, CMP #### [facility] [address] [place] [address] Dr. Mel Barrientos Urea nitrogen [Mass/Vol] 20.0 mg/dL Critically high 7.0-18.0 [facility] Comment on above: Performed By: #### L IPID, CMP #### [facility] [address] [place] [address] Dr. Mel Barrientos Urea nitrogen/Creatinine [Mass ratio] 22.2 mg/mg Normal [facility] Comment on above: Performed By: #### L IPID, CMP #### [facility] [address] [place] [address] Dr. Mel Barrientos PROTIMEon 07-11-2022 INR Coag (PPP) [Relative time] 1.14 {INR} Normal [facility] Comment on above: Performed By: #### P T, PTT #### [facility] [address] [place] [address] Dr. Mel Barrientos INR GUIDELINES SEE BELOW Normal [facility] Comment on above: Result Comment: JESSIKA RED INR: 2.0 - 3.0 CONDITIONS NOT LISTED BELOW 2.5 - 3.5 FOR PROSTHETIC HEART VALVE REPLACEMENT 2.5 - 3.5 RECURRENT THROMBOSIS Performed By: #### P T, PTT #### [facility] [address] [place] [address] Dr. Mel Barrientos PT Coag (PPP) [Time] 12.0 s Critically high 9.0-11.6 [facility] Comment on above: Performed By: #### P T, PTT #### [facility] [address] [place] [address] Dr. Mel Barrientos PTTon 07-11-2022 aPTT Coag (Bld) [Time] 30.8 s Normal 22.3-36.2 [facility] Comment on above: Performed By: #### P T, PTT #### [facility] [address], [place] [address] Dr. Mel Barrientos TROPONIN, HIGH SENSITIVITYon 07-11-2022 HSTROP 6.6 pg/mL Normal 4.0-76.1 [facility] Comment on above: Result Comment: CUT- OFF POINTS HAVE BEEN ESTABLISHED BASED ON THE FOURTH UNIVERSAL DEFINITIONS OF MYOCARDIAL INFARCTION. THE UPPER REFERENCE LIMIT (URL) OF TROPONIN, DEFINED THE 99TH PERCENTILE OF cTnI DISTRIBUTION IN A REFERENCE POPULATION, HAS BEEN CONFIRMED THE DECISION THRESHOLD FOR OR DIAGNOSIS. Performed By: #### L IPID, CMP #### [facility] [facility] [address], [place] [address] Dr. Mel Barrientos XR CHEST 1 Von [...] by: MAR MOE Date: 2022-07-11 14:05 Normal [facility] CA 19-9 BLDon 07-04-2022 Cancer Ag 19-9 Qn 9.0 [arb'U]/mL NINF - 36.0 U/mL [facility] Comment on above: Cancer antigen 19-9 test is used as an aid in monitoring response to treatment or recurrence in patients with established pancreatic, hepatobiliary, or gastrointestinal malignancies. Clinical correlation is required. The CA 19-9 Antigen test was performed using the To Sanchez [employer] DXI paramagnetic particle chemiluminescent immunoassay method. Results obtained with different assay methods or kits cannot be used interchangeably. CT Abdomen and Pelvis W cont rast Petty 07-04-2022 IMPRESSION: 1. The examination is limited secondary to patient respiratory motion. 2. No definite CT evidence for metastatic disease to the abdomen or pelvis. Transcribe Date/Time: Jul 04 2022 10:15A Dictated by: SHYANNE ARNDT MD This examination was interpreted and the report reviewed and electronically signed by: SHYANNE ARNDT MD on Jul 04 2022 10:57AM EST Thank you for allowing us to participate in the care of your patient. Should there be any questions regarding this interpretation, please call [phone]. If you are unable to reach us at the number above, please feel free to contact [facility] at [phone]. DIVISION OF RADIOLOGY * * *Final Report* * * DATE OF EXAM: Jul 03 2022 2:07PM [facility] 0530 - CT ABD/PEL W IVCON / PROCEDURE REASON: multiple diagnoses * * * * Physician Interpretation * * * * RESULT: EXAMINATION: CT ABDOMEN AND PELVIS WITH IV CONTRAST CLINICAL HISTORY: Anemia, cancer of ampulla of vater TECHNIQUE: CT of the abdomen and pelvis was performed using standard technique, scanning from just above the dome of the diaphragm to the symphysis pubis. MQ: CTAP_3 Contrast: IV: 125 ml of Omnipaque 300 Oral: 450 ml of 50ML Omnipaque [address] Radiation dose: Integrated Dose-length product (DLP) for this visit = 1096 mGy*cm. CT Dose Reduction Employed: Automated exposure control (AEC) COMPARISON: 02/06/2022. RESULT: Motion artifact is again appreciated, limiting full evaluation of the abdomen and pelvis. Liver: No mass. Previously identified cystic lesion at the hepatic dome is not clearly appreciated on this study, likely related to motion artifact. Biliary Tract: No bile duct dilation. Surgical clips within the gallbladder fossa are again appreciated. Pneumobilia is again noted. Spleen: No splenomegaly. No mass. Pancreas: Postoperative changes, compatible with prior Whipple's procedure. Pancreatic ductal stent is noted in place. No discrete recurrent mass is definitively identified, although, these images are significantly limited. Adrenal glands: No mass. Kidneys: No enhancing mass or hydronephrosis. GI Tract: No bowel wall thickening or dilation. Lymph nodes: No substantial mesenteric, retroperitoneal, or pelvic lymphadenopathy is identified. Several subcentimeter mesenteric lymph nodes are again appreciated, stable to less conspicuous, largest on today's study measures approximate 0.8 cm in short axis diameter, image 80, series 3. Mesentery: No ascites. No mass. Retroperitoneum: No mass. Vasculature: - Abdominal aorta and iliac arteries: Atherosclerotic calcifications without aneurysm. - Celiac and SMA: Patent. - Portal venous system (SMV, splenic vein, portal vein and branches): Patent. - Hepatic veins: Patent. Pelvis: No free fluid or pelvic mass. Mild, diffuse bladder wall thickening is again noted, unchanged. No substantial inguinal adenopathy. Bilateral hydroceles, right greater than left are again noted. Bones/Soft Tissues: Degenerative change involving the lumbar spine is again noted. No osseous destructive process. Lower Thorax: A CT examination of the chest has been performed concurrently and will be dictated separately. Yarder Engineer (topogram) images: No additional findings. DIVISION OF RADIOLOGY Provider, [facility] - 07/04/2022 * * *Final Report* * * DATE OF EXAM: Jul 03 2022 2:07PM [facility] 0530 - CT ABD/PEL W IVCON / PROCEDURE REASON: multiple diagnoses * * * * Physician Interpretation * * * * RESULT: EXAMINATION: CT ABDOMEN AND PELVIS WITH IV CONTRAST CLINICAL HISTORY: Anemia, cancer of ampulla of vater TECHNIQUE: CT of the abdomen and pelvis was performed using standard technique, scanning from just above the dome of the diaphragm to the symphysis pubis. MQ: CTAP_3 Contrast: IV: 125 ml of Omnipaque 300 Oral: 450 ml of 50ML Omnipaque [address] Radiation dose: Integrated Dose-length product (DLP) for this visit = 1096 mGy*cm. CT Dose Reduction Employed: Automated exposure control (AEC) COMPARISON: 02/06/2022. RESULT: Motion artifact is again appreciated, limiting full evaluation of the abdomen and pelvis. Liver: No mass. Previously identified cystic lesion at the hepatic dome is not clearly appreciated on this study, likely related to motion artifact. Biliary Tract: No bile duct dilation. Surgical clips within the gallbladder fossa are again appreciated. Pneumobilia is again noted. Spleen: No splenomegaly. No mass. Pancreas: Postoperative changes, compatible with prior Whipple's procedure. Pancreatic ductal stent is noted in place. No discrete recurrent mass is definitively identified, although, these images are significantly limited. Adrenal glands: No mass. Kidneys: No enhancing mass or hydronephrosis. GI Tract: No bowel wall thickening or dilation. Lymph nodes: No substantial mesenteric, retroperitoneal, or pelvic lymphadenopathy is identified. Several subcentimeter mesenteric lymph nodes are again appreciated, stable to less conspicuous, largest on today's study measures approximate 0.8 cm in short axis diameter, image 80, series 3. Mesentery: No ascites. No mass. Retroperitoneum: No mass. Vasculature: - Abdominal aorta and iliac arteries: Atherosclerotic calcifications without aneurysm. - Celiac and SMA: Patent. - Portal venous system (SMV, splenic vein, portal vein and branches): Patent. - Hepatic veins: Patent. Pelvis: No free fluid or pelvic mass. Mild, diffuse bladder wall thickening is again noted, unchanged. No substantial inguinal adenopathy. Bilateral hydroceles, right greater than left are again noted. Bones/Soft Tissues: Degenerative change involving the lumbar spine is again noted. No osseous destructive process. Lower Thorax: A CT examination of the chest has been performed concurrently and will be dictated separately. Yarder Engineer (topogram) images: No additional findings. IMPRESSION IMPRESSION: 1. The examination is limited secondary to patient respiratory motion. 2. No definite CT evidence for metastatic disease to the abdomen or pelvis. Transcribe Date/Time: Jul 04 2022 10:15A Dictated by: SHYANNE ARNDT MD This examination was interpreted and the report reviewed and electronically signed by: SHYANNE ARNDT MD on Jul 04 2022 10:57AM EST Thank you for allowing us to participate in the care of your patient. Should there be any questions regarding this interpretation, please call [phone]. If you are unable to reach us at the number above, please feel free to contact [facility]iology at [phone]. [facility] CT Abdomen and Pelvis W cont rast IVOrdered By: [facility] Provider on 07-04-[address] [facility] [address] Chest W contrast Petty IMPRESSION: 1. Interval improvement in previously identified reticulonodular opacities within the posterior right lower lobe as above. 2. No suspicious enlarging nodule or substantial intrathoracic adenopathy is identified. 3. The examination is limited secondary to respiratory motion, as above. Transcribe Date/Time: Jul 04 2022 10:25A Dictated by: SHYANNE ARNDT MD This examination was interpreted and the report reviewed and electronically signed by: SHYANNE ARNDT MD on Jul 04 2022 10:37AM EST Thank you for allowing us to participate in the care of your patient. Should there be any questions regarding this interpretation, please call [phone]. If you are unable to reach us at the number above, please feel free to contact [facility] at [phone]. DIVISION OF RADIOLOGY * * *Final Report* * * DATE OF EXAM: Jul 03 2022 2:07PM [facility] 0539 - CT CHEST W IVCON / PROCEDURE REASON: multiple diagnoses * * * * Physician Interpretation * * * * RESULT: EXAMINATION: CHEST CT WITHOUT CONTRAST CLINICAL HISTORY: Cancer of ampullary Vater, anemia, interstitial pulmonary disease Technique: Spiral CT acquisition of the chest from the thoracic inlet to the upper abdomen without contrast. MQ: CTCWOR_4 CT Dose-Length Product: 1096 mGy*cm CT Dose Reduction Employed: Automated exposure control (AEC) Comparison: CT chest 02/06/2022 RESULT: Limitations: Respiratory motion through the lung bases. Lines, tubes, and devices: None. Lung parenchyma , airways, and pleural space: No consolidative process or pleural effusion. The trachea and major airways appear patent. There is been interval resolution of previously identified reticulonodular opacities within the posterior right lower lobe, minimal groundglass opacities within this region are appreciated on today's study. Linear atelectasis/scarring within the right lower lobe are again noted. Calcified granulomata are appreciated. No suspicious enlarging nodule is definitively identified. Lower neck, lymph nodes, and mediastinum: The visualized thyroid gland is stable. No substantial supraclavicular or axillary lymphadenopathy is identified. Scattered subcentimeter mediastinal lymph nodes are again appreciated. No substantial mediastinal or hilar adenopathy is appreciated. Subcarinal granulomatous calcification is again noted. Heart, pericardium, and thoracic vessels: The thoracic aorta is normal in caliber. Coronary artery calcification is noted. No substantial pericardial effusion. Bones/Soft Tissues: Degenerative change involving the thoracic spine is again appreciated. No osseous destructive process. Upper Abdomen: A CT examination of the abdomen has been performed concurrently and will be dictated separately. Yarder Engineer (topogram) images: No additional findings. DIVISION OF RADIOLOGY Provider, Danette Hinkle - 07/04/2022 * * *Final Report* * * DATE OF EXAM: Jul 03 2022 2:07PM [facility] 0539 - CT CHEST W IVCON / PROCEDURE REASON: multiple diagnoses * * * * Physician Interpretation * * * * RESULT: EXAMINATION: CHEST CT WITHOUT CONTRAST CLINICAL HISTORY: Cancer of ampullary Vater, anemia, interstitial pulmonary disease Technique: Spiral CT acquisition of the chest from the thoracic inlet to the upper abdomen without contrast. MQ: CTCWOR_4 CT Dose-Length Product: 1096 mGy*cm CT Dose Reduction Employed: Automated exposure control (AEC) Comparison: CT chest 02/06/2022 RESULT: Limitations: Respiratory motion through the lung bases. Lines, tubes, and devices: None. Lung parenchyma , airways, and pleural space: No consolidative process or pleural effusion. The trachea and major airways appear patent. There is been interval resolution of previously identified reticulonodular opacities within the posterior right lower lobe, minimal groundglass opacities within this region are appreciated on today's study. Linear atelectasis/scarring within the right lower lobe are again noted. Calcified granulomata are appreciated. No suspicious enlarging nodule is definitively identified. Lower neck, lymph nodes, and mediastinum: The visualized thyroid gland is stable. No substantial supraclavicular or axillary lymphadenopathy is identified. Scattered subcentimeter mediastinal lymph nodes are again appreciated. No substantial mediastinal or hilar adenopathy is appreciated. Subcarinal granulomatous calcification is again noted. Heart, pericardium, and thoracic vessels: The thoracic aorta is normal in caliber. Coronary artery calcification is noted. No substantial pericardial effusion. Bones/Soft Tissues: Degenerative change involving the thoracic spine is again appreciated. No osseous destructive process. Upper Abdomen: A CT examination of the abdomen has been performed concurrently and will be dictated separately. Yarder Engineer (topogram) images: No additional findings. IMPRESSION IMPRESSION: 1. Interval improvement in previously identified reticulonodular opacities within the posterior right lower lobe as above. 2. No suspicious enlarging nodule or substantial intrathoracic adenopathy is identified. 3. The examination is limited secondary to respiratory motion, as above. Transcribe Date/Time: Jul 04 2022 10:25A Dictated by: SHYANNE ARNDT MD This examination was interpreted and the report reviewed and electronically signed by: SHYANNE ARNDT MD on Jul 04 2022 10:37AM EST Thank you for allowing us to participate in the care of your patient. Should there be any questions regarding this interpretation, please call [phone]. If you are unable to reach us at the number above, please feel free to contact [facility] at [phone]. [facility] Cancer Ag 19-9 Qnon 07-04-19 Interpretation and review of laboratory results Normal [facility] FERRITIN BLDon 07-04-2022 Ferritin [Mass/Vol] 243.0 ng/mL 30.3 - 565.7 ng/mL [facility] FOLATE SERUMon 07-04-2022 Folate [Mass/Vol] 4.1 ng/mL Low 4.7 - PINF ng/mL [facility] Folate [Mass/Vol]on 07-04-19 Interpretation and review of laboratory results Abnormal [facility] Iron and Iron binding capaci ty panelon 07-04-2022 Interpretation and review of laboratory results Abnormal [facility] Iron [Mass/Vol] 30 ug/dL Low 41 - 186 ug/dL [facility] Iron binding capacity [Mass/Vol] 212 ug/dL Low 232 - 386 ug/dL [facility] Iron/TIBC [Molar ratio] 14.2 % Low 15.0 - 57.0 % [facility] No Panel Informationon 07-04 [facility] Interpretation and review of laboratory results Normal [facility] VITAMIN B12 BLOODon 07-04-19 Cobalamin (Vitamin B12) [Mass/Vol] 465 pg/mL 232 - 1245 pg/mL [facility] CBC W Auto Differential pane l (Bld)on 07-03-2022 Basophils (Bld) [#/Vol] [facility] Basophils/100 WBC (Bld) 0.6 % [facility] Differential cell count method Nom (Bld) Auto [facility] Eosinophils (Bld) [#/Vol] 0.19 10*3/uL [facility] Eosinophils/100 WBC (Bld) 5.7 % [facility] Erythrocyte distribution width (RBC) [Ratio] 13.3 % 11.5 - 15.0 % [facility] Hematocrit (Bld) [Volume fraction] 27.5 % Low 39.0 - 51.0 % [facility] Hemoglobin (Bld) [Mass/Vol] 8.7 g/dL Low 13.0 - 17.0 g/dL [facility] Immature granulocytes (Bld) [#/Vol] [facility] Immature granulocytes/100 WBC (Bld) 0.3 % [facility] Interpretation and review of laboratory results Abnormal [facility] Lymphocytes (Bld) [#/Vol] 0.83 10*3/uL Low [facility] Lymphocytes/100 WBC (Bld) 24.9 % [facility] MCH (RBC) [Entitic mass] 34.1 pg High 26.0 - 34.0 pg [facility] MCHC (RBC) [Mass/Vol] 31.6 g/dL 30.5 - 36.0 g/dL [facility] MCV (RBC) [Entitic vol] 107.8 fL High 80.0 - 100.0 fL [facility] Monocytes (Bld) [#/Vol] 0.41 10*3/uL NINF [facility] Monocytes/100 WBC (Bld) 12.3 % [facility] Neutrophils (Bld) [#/Vol] 1.88 10*3/uL [facility] Neutrophils/100 WBC (Bld) 56.2 % [facility] Nucleated RBC (Bld) [#/Vol] [facility] Nucleated RBC/100 WBC (Bld) [Ratio] 0.0 % /100 WBC [facility] Platelet mean volume (Bld) [Entitic vol] 8.8 fL Low 9.0 - 12.7 fL [facility] Platelets (Bld) [#/Vol] 231 10*3/uL [facility] RBC (Bld) [#/Vol] 2.55 10*6/uL Low 4.20 - 6.00 m/uL [facility] WBC (Bld) [#/Vol] 3.34 10*3/uL Low [facility] This is an appended report. These results have been appended to a previously verified report. [facility] Comprehensive metabolic 2000 panelOrdered By: Arnulfo Emmanuel on 07-03-2022 Albumin [Mass/Vol] 3.5 g/dL Low 3.9 - 4.9 g/dL [facility] ALP [Catalytic activity/Vol] 140 U/L High 38 - 113 U/L [facility] ALT [Catalytic activity/Vol] 32 U/L 10 - 54 U/L [facility] Anion gap [Moles/Vol] 7 mmol/L Low 9 - 18 mmol/L [facility] AST [Catalytic activity/Vol] 27 U/L 14 - 40 U/L [facility] Bilirubin [Mass/Vol] 0.2 mg/dL 0.2 - 1 .3 mg/dL [facility] Calcium [Mass/Vol] 8.5 mg/dL 8.5 - 10. 2 mg/dL [facility] Chloride [Moles/Vol] 102 mmol/L 97 - 10 5 mmol/L [facility] CO2 [Moles/Vol] 21 mmol/L Low 22 - 30 mmol/L [facility] Creatinine [Mass/Vol] 0.70 mg/dL Low 0.73 - 1.22 mg/dL [facility] GFR/1.73 sq M.predicted among non-blacks MDRD (S/P/Bld) [Vol rate/Area] 102 mL/min/{1.73_m2} - PINF [facility] Comment on above: Estimated Glomerular Filtration Rate (eGFR) is calculated using the 2020 CKD-EPI creatinine equation. This equation utilizes serum creatinine, sex, and age as parameters. The creatinine assay has traceable calibration to isotope dilution-mass spectrometry. Refer to KDIGO guidelines for clinical interpretation. In patients with unstable renal function, e.g. those with acute kidney injury, the eGFR may not accurately reflect actual GFR. Glucose [Mass/Vol] 292 mg/dL High 74 - 99 mg/dL [facility] Comment on above: The [place] Diab[employer] Association (ADA) provides guidance for cutoff values for fasting glucose and random glucose. The ADA defines fasting as no caloric intake for at least 8 hours. Fasting plasma glucose results between 100 to 125 mg/dL indicate increased risk for diabetes (prediabetes). Fasting plasma glucose results greater than or equal to 126 mg/dL meet the criteria for diagnosis of diabetes. In the absence of unequivocal hyperglycemia, results should be confirmed by repeat testing. In a patient with classic symptoms of hyperglycemia or hyperglycemic crisis, random plasma glucose results greater than or equal to 200 mg/dL meet the criteria for diagnosis of diabetes. Reference: Standards of Medical Care in Diabetes 2016, [place] [employer]. Diabetes Care. 2016.39(Suppl 1). Interpretation and review of laboratory results Abnormal [facility] Potassium [Moles/Vol] 4.4 mmol/L 3.7 - 5.1 mmol/L [facility] Protein [Mass/Vol] 6.3 g/dL 6.3 - 8.0 g/dL [facility] Sodium [Moles/Vol] 130 mmol/L Low 136 - 144 mmol/L [facility] Urea nitrogen [Mass/Vol] 23 mg/dL 9 - 24 mg/dL [facility] No Panel Informationon 07-03 Radiology Study observation (narrative) [facility] XR LSPINE MIN 4 VIEWSon 04-29 XR [...] by: REBA REID Date: 2022-05-13 07:55 Normal [facility] CA 19-9 Don 02-07-2022 Cancer Ag 19-9 Qn 15.0 [arb'U]/mL NINF - 36.0 U/mL [facility] Comment on above: Cancer antigen 19-9 test is used as an aid in monitoring response to treatment or recurrence in patients with established pancreatic, hepatobiliary, or gastrointestinal malignancies. Clinical correlation is required. Test analyzed by the To DXI Method. Results obtained with different assay, methods or kits cannot be used interchangeably. CEA Don 02-07-2022 Carcinoembryonic Ag [Mass/Vol] 1.6 ng/mL NINF - 2.9 ng/mL [facility] Comment on above: Carcinoembryonic ant igen test is used as an aid in monitoring response to treatment or recurrence in patients with established colorectal, breast, lung, prostatic, pancreatic, and ovarian carcinomas. Clinical correlation is required. The To Sanchez DXI 600/800 is used. Results obtained with different assay, methods or kits cannot be used interchangeably Cancer Ag 19-9 Qnon 02-08-20 Interpretation and review of laboratory results Normal [facility] Carcinoembryonic Ag [Mass/Vo l]on 02-07-2022 Interpretation and review of laboratory results Normal [facility] CBC W Auto Differential pane l (Bld)on 02-06-2022 Basophils (Bld) [#/Vol] [facility] Basophils/100 WBC (Bld) 0.2 % [facility] Differential cell count method Nom (Bld) Auto [facility] Eosinophils (Bld) [#/Vol] 0.12 10*3/uL [facility] Eosinophils/100 WBC (Bld) 2.6 % [facility] Erythrocyte distribution width (RBC) [Ratio] 13.3 % 11.5 - 15.0 % [facility] Hematocrit (Bld) [Volume fraction] 29.4 % Low 39.0 - 51.0 % [facility] Hemoglobin (Bld) [Mass/Vol] 9.5 g/dL Low 13.0 - 17.0 g/dL [facility] Immature granulocytes (Bld) [#/Vol] [facility] Immature granulocytes/100 WBC (Bld) 0.2 % [facility] Interpretation and review of laboratory results Abnormal [facility] Lymphocytes (Bld) [#/Vol] 1.52 10*3/uL [facility] Lymphocytes/100 WBC (Bld) 32.6 % [facility] MCH (RBC) [Entitic mass] 34.7 pg High 26.0 - 34.0 pg [facility] MCHC (RBC) [Mass/Vol] 32.3 g/dL 30.5 - 36.0 g/dL [facility] MCV (RBC) [Entitic vol] 107.3 fL High 80.0 - 100.0 fL [facility] Monocytes (Bld) [#/Vol] 0.39 10*3/uL [facility] Monocytes/100 WBC (Bld) 8.4 % [facility] Neutrophils (Bld) [#/Vol] 2.61 10*3/uL [facility] Neutrophils/100 WBC (Bld) 56.0 % [facility] Nucleated RBC (Bld) [#/Vol] [facility] Nucleated RBC/100 WBC (Bld) [Ratio] 0.0 % /100 WBC [facility] Platelet mean volume (Bld) [Entitic vol] 9.2 fL 9.0 - 12.7 fL [facility] Platelets (Bld) [#/Vol] 302 10*3/uL [facility] RBC (Bld) [#/Vol] 2.74 10*6/uL Low 4.20 - 6.00 m/uL [facility] WBC (Bld) [#/Vol] 4.66 10*3/uL [facility] This is an appended report. These results have been appended to a previously verified report. [facility] CT Abdomen and Pelvis W cont rast Petty 02-06-2022 IMPRESSION: 1. Nonspecific borderline mesenteric lymphadenopathy, stable since 02/20/20. 2. New trace pelvic ascites. 3. Nonspecific persistent diffuse thickening of the urinary bladder wall. 4. Stool is noted throughout the colon. 5. Prominent motion artifact. Transcribe Date/Time: Feb 06 2022 5:43P Dictated by: BRIA CHAVEZ MD This examination was interpreted and the report reviewed and electronically signed by: BRIA CHAVEZ MD on Feb 06 2022 5:58PM EST Thank you for allowing us to participate in the care of your patient. Should there be any questions regarding this interpretation, please call [phone]. If you are unable to reach us at the number above, please feel free to contact [facility] eRadiology at [phone]. [email or web address] N OF RADIOLOGY * * *Final Report* * * DATE OF EXAM: Feb 06 2022 2:20PM [facility] 0530 - CT ABD/PEL W IVCON / PROCEDURE REASON: multiple diagnoses * * * * Physician Interpretation * * * * RESULT: EXAMINATION: CT ABDOMEN AND PELVIS WITH IV CONTRAST CLINICAL HISTORY: Pancreatic cancer TECHNIQUE: CT of the abdomen and pelvis was performed using standard technique, scanning from just above the dome of the diaphragm to the symphysis pubis. MQ: CTAP_3 Contrast: : ml of : ml of CT Radiation dose: Integrated Dose-length product (DLP) for this visit = 849 mGy*cm. CT Dose Reduction Employed: COMPARISON: 02/20/20 RESULT: Motion artifact. Liver: Probable diffuse hepatic infiltration. 1 cm cyst in the dome of liver (2: 34), stable. No evidence of a suspicious enhancing hepatic mass. Biliary: Pneumobilia. Gallbladder is absent. Spleen: No mass. No splenomegaly. 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 A pancreatic duct stent is again noted. Adrenals: No mass. Kidneys: No mass, calculus or hydronephrosis. GI tract: No dilation or wall thickening. Stool is noted throughout the colon. Lymph nodes: Borderline mesenteric lymphadenopathy measures 1.0 cm short axis (2:84), stable. Mesentery/Peritoneum: No ascites or mass. Retroperitoneum: No mass. Vasculature: The celiac axis and SMA are patent. The portal vein and branches, splenic vein, SMV, and hepatic veins are patent. Arterial atherosclerotic disease without aneurysm. Pelvis: New trace pelvic ascites. Marked thickening of the urinary bladder wall is again noted. Bilateral hydroceles, partially visualized. Bones/Soft Tissues: No new osseous abnormalities. Lower thorax: A chest CT performed will be reported separately. Yarder Engineer (topogram) images: No additional findings. ZZZ_DO_NOT_ USE_DIVISIO N OF RADIOLOGY Provider, [facility] - 02/06/2022 * * *Final Report* * * DATE OF EXAM: Feb 06 2022 2:20PM [facility] 0530 - CT ABD/PEL W IVCON / PROCEDURE REASON: multiple diagnoses * * * * Physician Interpretation * * * * RESULT: EXAMINATION: CT ABDOMEN AND PELVIS WITH IV CONTRAST CLINICAL HISTORY: Pancreatic cancer TECHNIQUE: CT of the abdomen and pelvis was performed using standard technique, scanning from just above the dome of the diaphragm to the symphysis pubis. MQ: CTAP_3 Contrast: : ml of : ml of CT Radiation dose: Integrated Dose-length product (DLP) for this visit = 849 mGy*cm. CT Dose Reduction Employed: COMPARISON: 02/20/20 RESULT: Motion artifact. Liver: Probable diffuse hepatic infiltration. 1 cm cyst in the dome of liver (2: 34), stable. No evidence of a suspicious enhancing hepatic mass. Biliary: Pneumobilia. Gallbladder is absent. Spleen: No mass. No splenomegaly. 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 A pancreatic duct stent is again noted. Adrenals: No mass. Kidneys: No mass, calculus or hydronephrosis. GI tract: No dilation or wall thickening. Stool is noted throughout the colon. Lymph nodes: Borderline mesenteric lymphadenopathy measures 1.0 cm short axis (2:84), stable. Mesentery/Peritoneum: No ascites or mass. Retroperitoneum: No mass. Vasculature: The celiac axis and SMA are patent. The portal vein and branches, splenic vein, SMV, and hepatic veins are patent. Arterial atherosclerotic disease without aneurysm. Pelvis: New trace pelvic ascites. Marked thickening of the urinary bladder wall is again noted. Bilateral hydroceles, partially visualized. Bones/Soft Tissues: No new osseous abnormalities. Lower thorax: A chest CT performed will be reported separately. Yarder Engineer (topogram) images: No additional findings. IMPRESSION IMPRESSION: 1. Nonspecific borderline mesenteric lymphadenopathy, stable since 02/20/20. 2. New trace pelvic ascites. 3. Nonspecific persistent diffuse thickening of the urinary bladder wall. 4. Stool is noted throughout the colon. 5. Prominent motion artifact. Transcribe Date/Time: Feb 06 2022 5:43P Dictated by: BRIA CHAVEZ MD This examination was interpreted and the report reviewed and electronically signed by: BRIA CHAVEZ MD on Feb 06 2022 5:58PM EST Thank you for allowing us to participate in the care of your patient. Should there be any questions regarding this interpretation, please call [phone]. If you are unable to reach us at the number above, please feel free to contact [facility] eRadiology at [phone]. [facility] CT Chest W contrast Petty IMPRESSION: 1. New reticulonodular opacities in the right upper lobe most likely infectious/inflammatory in etiology. Consider follow-up to complete resolution. 2. Marked motion artifact. 3. Findings compatible with previous granulomatous disease. Transcribe Date/Time: Feb 06 2022 5:33P Dictated by: BRIA CHAVEZ MD This examination was interpreted and the report reviewed and electronically signed by: BRIA CHAVEZ MD on Feb 06 2022 5:58PM EST Thank you for allowing us to participate in the care of your patient. Should there be any questions regarding this interpretation, please call [phone]. If you are unable to reach us at the number above, please feel free to contact [facility]Radiology at [phone]. ASHLEE_DO_NOT_ USE_DIVISIO N OF RADIOLOGY * * *Final Report* * * DATE OF EXAM: Feb 06 2022 2:20PM [facility] 0539 - CT CHEST W IVCON / PROCEDURE REASON: multiple diagnoses * * * * Physician Interpretation * * * * RESULT: EXAMINATION: CHEST CT WITH CONTRAST CLINICAL HISTORY: Pancreatic cancer, monitor Technique: Spiral CT acquisition of the chest from the thoracic inlet to the upper abdomen following IV contrast. MQ: CTCW_6 Contrast: mL CT Radiation dose: Integrated Dose-length product (DLP) for this visit = 849 mGy*cm CT Dose Reduction Employed: Comparison: 02/20/20 RESULT: Limitations: Motion artifact is noted. Lines, tubes, and devices: None. Lung parenchyma and pleura: Streaky scarring in the right middle lobe and right lower lobe, stable. New reticulonodular opacities in the right upper lobe (3:54) most likely infectious/inflammatory in etiology. Calcified granulomas are noted. No pleural effusion. Central airways are patent. Thoracic inlet, heart, and mediastinum: Calcified mediastinal lymph nodes are identified. No evidence of enlarged noncalcified mediastinal lymph nodes. The thoracic aorta and main pulmonary artery are normal in caliber. The cardiac chambers are normal in size. Atherosclerotic coronary artery calcifications are noted. No pericardial effusion or thickening. Bones and soft tissues: Bone islands are noted in the T6 vertebral body and left glenoid process, stable. No new osseous abnormalities. Upper abdomen: Please refer to the abdomen CT scan report for the abdomen findings. ZZZ_DO_NOT_ USE_DIVISIO N OF RADIOLOGY Provider, [facility] - 02/06/2022 * * *Final Report* * * DATE OF EXAM: Feb 06 2022 2:20PM [facility] 0539 - CT CHEST W IVCON / PROCEDURE REASON: multiple diagnoses * * * * Physician Interpretation * * * * RESULT: EXAMINATION: CHEST CT WITH CONTRAST CLINICAL HISTORY: Pancreatic cancer, monitor Technique: Spiral CT acquisition of the chest from the thoracic inlet to the upper abdomen following IV contrast. MQ: CTCW_6 Contrast: mL CT Radiation dose: Integrated Dose-length product (DLP) for this visit = 849 mGy*cm CT Dose Reduction Employed: Comparison: 02/20/20 RESULT: Limitations: Motion artifact is noted. Lines, tubes, and devices: None. Lung parenchyma and pleura: Streaky scarring in the right middle lobe and right lower lobe, stable. New reticulonodular opacities in the right upper lobe (3:54) most likely infectious/inflammatory in etiology. Calcified granulomas are noted. No pleural effusion. Central airways are patent. Thoracic inlet, heart, and mediastinum: Calcified mediastinal lymph nodes are identified. No evidence of enlarged noncalcified mediastinal lymph nodes. The thoracic aorta and main pulmonary artery are normal in caliber. The cardiac chambers are normal in size. Atherosclerotic coronary artery calcifications are noted. No pericardial effusion or thickening. Bones and soft tissues: Bone islands are noted in the T6 vertebral body and left glenoid process, stable. No new osseous abnormalities. Upper abdomen: Please refer to the abdomen CT scan report for the abdomen findings. IMPRESSION IMPRESSION: 1. New reticulonodular opacities in the right upper lobe most likely infectious/inflammatory in etiology. Consider follow-up to complete resolution. 2. Marked motion artifact. 3. Findings compatible with previous granulomatous disease. Transcribe Date/Time: Feb 06 2022 5:33P Dictated by: BRIA CHAVEZ MD This examination was interpreted and the report reviewed and electronically signed by: BRIA CHAVEZ MD on Feb 06 2022 5:58PM EST Thank you for allowing us to participate in the care of your patient. Should there be any questions regarding this interpretation, please call [phone]. If you are unable to reach us at the number above, please feel free to contact [facility] eRadiology at [phone]. [facility] Comprehensive metabolic 2000 panelOrdered By: Cody Bryson on 02-06-2022 Albumin [Mass/Vol] 3.5 g/dL Low 3.9 - 4.9 g/dL [facility] ALP [Catalytic activity/Vol] 166 U/L High 38 - 113 U/L [facility] ALT [Catalytic activity/Vol] 38 U/L 10 - 54 U/L [facility] Anion gap [Moles/Vol] 8 mmol/L Low 9 - 18 mmol/L [facility] AST [Catalytic activity/Vol] 30 U/L 14 - 40 U/L [facility] Bilirubin [Mass/Vol] 0.2 mg/dL 0.2 - 1 .3 mg/dL [facility] Calcium [Mass/Vol] 8.8 mg/dL 8.5 - 10. 2 mg/dL [facility] Chloride [Moles/Vol] 110 mmol/L High 97 - 10 5 mmol/L [facility] CO2 [Moles/Vol] 19 mmol/L Low 22 - 30 mmol/L [facility] Creatinine [Mass/Vol] 0.71 mg/dL Low 0.73 - 1.22 mg/dL [facility] GFR/1.73 sq M.predicted among non-blacks MDRD (S/P/Bld) [Vol rate/Area] 102 mL/min/{1.73_m2} - PINF [facility] Comment on above: Estimated Glomerular Filtration Rate (eGFR) is calculated using the 2020 CKD-EPI creatinine equation. This equation utilizes serum creatinine, sex, and age as parameters. The creatinine assay has traceable calibration to isotope dilution-mass spectrometry. Refer to KDIGO guidelines for clinical interpretation. In patients with unstable renal function, e.g. those with acute kidney injury, the eGFR may not accurately reflect actual GFR. Glucose [Mass/Vol] 98 mg/dL 74 - 99 mg/dL [facility] Comment on above: The [place] Di[employer] Association (ADA) provides guidance for cutoff values for fasting glucose and random glucose. The ADA defines fasting as no caloric intake for at least 8 hours. Fasting plasma glucose results between 100 to 125 mg/dL indicate increased risk for diabetes (prediabetes). Fasting plasma glucose results greater than or equal to 126 mg/dL meet the criteria for diagnosis of diabetes. In the absence of unequivocal hyperglycemia, results should be confirmed by repeat testing. In a patient with classic symptoms of hyperglycemia or hyperglycemic crisis, random plasma glucose results greater than or equal to 200 mg/dL meet the criteria for diagnosis of diabetes. Reference: Standards of Medical Care in Diabetes 2016, [place] [employer]. Diabetes Care. 2016.39(Suppl 1). Interpretation and review of laboratory results Abnormal [facility] Potassium [Moles/Vol] 4.8 mmol/L 3.7 - 5.1 mmol/L [facility] Protein [Mass/Vol] 6.4 g/dL 6.3 - 8.0 g/dL [facility] Sodium [Moles/Vol] 137 mmol/L 136 - 144 mmol/L [facility] Urea nitrogen [Mass/Vol] 26 mg/dL High 9 - 24 mg/dL [facility] No Panel InformationOrdered By: [facility] Provider on 02-06-2022 [facility] No Panel Informationon 02-06 Radiology Study observation (narrative) [facility] LIPID PROFILEon 02-04-2022 CHOL-HDL RATIO NORM SEE BELOW Normal [facility] Comment on above: Result Comment: 3.3 - 4.4 LOW RISK 4.4 - 7.1 AVERAGE RISK 7.1 - 11.0 MODERATE RISK >11.0 HIGH RISK Performed By: #### L IPID, CMP #### [facility] [address] [place] [address] Dr. Mel Barrientos Cholesterol [Mass/Vol] 100 mg/dL Normal <=200 [facility] Comment on above: Performed By: #### L IPID, CMP #### [facility] [address] [address] [address] Mel Barrientos Cholesterol in HDL [Mass/Vol] 20 mg/dL Critically low 40-60 [facility] Comment on above: Performed By: #### L IPID, CMP #### [facility] [address] [place] [address] Dr. Mel Barrientos Cholesterol in LDL [Mass/Vol] 63.6 mg/dL Normal [facility] Comment on above: Performed By: #### L IPID, CMP #### [facility] [address] [place] [address] Dr. Mel Barrientos Cholesterol.total/Cho lesterol in HDL [Mass ratio] 5.0 {ratio} Normal [facility] Comment on above: Performed By: #### L IPID, CMP #### [facility] [address] [place] [address] Dr. Mel Barrientos HDL NORMAL > or = 60 mg/dl - LO W CARDIOVASCULAR RISK <40 mg/dl - HIGH CARDIOVASCULAR RISK Normal [facility] Comment on above: Performed By: #### L IPID, CMP #### [facility] [address] [place] [address] Dr. Mel Barrientos LDL CALC NORMAL SEE BELOW Normal [facility] Comment on above: Result Comment: <100 mg/dl OPTIMAL 100 - 129 mg/dl NEAR OR ABOVE OPTIMAL 130 - 159 mg/dl BORDERLINE HIGH 160 - 189 mg/dl HIGH >190 mg/dl VERY HIGH Performed By: #### L IPID, CMP #### [facility] [address] [place] [address] Dr. Mel Barrientos Triglyceride [Mass/Vol] 82 mg/dL Normal <=150 [facility] Comment on above: Performed By: #### L IPID, CMP #### [facility] [address] [place] [address] Dr. Mel Barrientos VLDL CALC 16.4 mg/dL Normal [facility] Comment on above: Performed By: #### L IPID, CMP #### [facility] [address] [place] [address] Dr. Mel Barrientos PROF CHEM 8 (BAS METB)on Anion gap [Moles/Vol] 15.8 mmol/L Normal [facility] Comment on above: Performed By: #### L IPID, CMP #### [facility] [address] [place] [address] Dr. Mel Barrientos Calcium [Mass/Vol] 8.5 mg/dL Normal 8.5-10.1 [facility] Comment on above: Performed By: #### L IPID, CMP #### [facility] [address] [place] [address] Dr. Mel Barrientos Chloride [Moles/Vol] 109 mmol/L Critically high 98-107 [facility] Comment on above: Performed By: #### L IPID, CMP #### [facility] [address] [place] [address] Dr. Mel Barrientos CO2 [Moles/Vol] 17.7 mmol/L Critically low 21.0-32.0 [facility] Comment on above: Performed By: #### L IPID, CMP #### [facility] [address] [place] [address] Dr. Mel Barrientos Creatinine [Mass/Vol] 0.79 mg/dL Normal 0.70-1.30 [facility] Comment on above: Performed By: #### L IPID, CMP #### [facility] [address] [place] [address] Dr. Mel Barrientos EGFR-AF MALDIVIAN >60 Normal >=60 [facility] Comment on above: Performed By: #### L IPID, CMP #### [facility] [address] [place] [address] Dr. Mel Barrientos EGFR-NON AF MALDIVIAN >60 Normal >=60 [facility] Comment on above: Performed By: #### L IPID, CMP #### [facility] [address] [place] [address] Dr. Mel Barrientos Glucose [Mass/Vol] 116 mg/dL Critically high 74-106 [facility] Comment on above: Performed By: #### L IPID, CMP #### [facility] [address] [place] [address] Dr. Mel Barrientos Potassium [Moles/Vol] 4.5 mmol/L Normal 3.5-5.1 [facility] Comment on above: Performed By: #### L IPID, CMP #### [facility] [address] [place] [address] Dr. Mel Barrientos Sodium [Moles/Vol] 138 mmol/L Normal 136-145 [facility] Comment on above: Performed By: #### L IPID, CMP #### [facility] [address] [place] [address] Dr. Mel Barrientos Urea nitrogen [Mass/Vol] 29.0 mg/dL Critically high 7.0-18.0 [facility] Comment on above: Performed By: #### L IPID, CMP #### [facility] [address] [place] [address] Dr. Mel Barrientos Urea nitrogen/Creatinine [Mass ratio] 36.7 mg/mg Normal [facility] Comment on above: Performed By: #### L IPID, CMP #### [facility] [address] [place] [address] Dr. Mel RODARTEOTomarisa 02-04-2022 AST [Catalytic activity/Vol] 35 U/L Normal 15-37 [facility] Comment on above: Performed By: #### B MP, AST, ALT, LIPID #### [facility] [address] [place] [address] Dr. Mel RODARTEPTon 02-04-2022 ALT [Catalytic activity/Vol] 64 U/L Critically high 16-63 [facility] Comment on above: Performed By: #### L IPID, CMP #### [facility] [address] [address] [address] Mel Barrientos Office Visit (Cardiology)on 01-09-2022 [...] Aminotransferase, Serum; Status:Active - Retrospective Authorization; Requested for:[id number]; AST; Status:Active - Retrospective Authorization; Requested for:[id number]; Basic Metabolic Panel; Status:Active - Retrospective Authorization; Requested for:[id number]; Lipid Panel; Status:Active - Retrospective Authorization; Requested for:[id number]; SocHx: Former smoker Tobacco Use Screening; Status:Complete; Done: [id number] Patient Instructions By signing my name below, I, Gill Hart LPN, Scribe, attest that this documentation has been prepared under the direction and in the presence of Dr. Irving Abreu DO. All medical record entries made by the [facility] were at my direction and personally dictated [...] Follow up in 1 year. Chief Complaint ROCIOMarisa JACKSON is being seen for an annual follow-up of. Patient is a 66-year-old gentleman returns for follow-up. He is doing well from a cardiovascular standpoint with no angina, heart failure hospitalizations. He does have an ischemic cardiomyopathy currently asymptomatic. Stress perfusion imaging from 2018 revealed anterior scar with ejection fraction of 40%. He is status post anterior OR, with PCI of the LAD in 2010. [...] Oral TabletTAKE 1 TABLET AT BEDTIME. Creon [id number] UNIT Oral Capsule Delayed Release Particles1 tablet [...] negative for complaint. Vitals Vital Signs Recorded: [id number] 11:21AM Heart Rate80, R Radial Puqpygej224, RUE Nifbqbwoe77, RUE Height5 ft 8 in Donrwl015 lb BMI Adsfjqlbzd57.9 kg/m2 BSA Calculated1.78 Tobacco Useb) No PHQ-2 [...] B12) [Mass/Vol] 609.0 pg/mL Normal 193.0-986. 0 [facility] Comment on above: Performed By: #### P T, PTT #### [facility] [address] [place] [address] Dr. Mel Barrientos CBC AUTO DIFFon 11-12-2021 BASO # 0.0 103/ul Normal 0.0-0.1 [facility] Comment on above: Performed By: #### C BC #### [facility] [address] [place] [address] Dr. Mel Barrientos Basophils/100 WBC (Bld) 0.4 % Normal 0.2-2.0 [facility] Comment on above: Performed By: #### C BC #### [facility] [address] [place] [address] Dr. Mel Barrientos EO # 0.1 103/ul Normal 0.0-0.7 [facility] Comment on above: Performed By: #### C BC #### [facility] [address] [place] [address] Dr. Mel Barrientos Eosinophils/100 WBC (Bld) 1.6 % Normal 0.9-7.0 [facility] Comment on above: Performed By: #### C BC #### [facility] [address] [place] [address] Dr. Mel Barrientos Erythrocyte distribution width (RBC) [Ratio] 14.4 % Normal 11.0-15.0 [facility] Comment on above: Performed By: #### C BC #### [facility] [address] [place] [address] Dr. Mel Barrientos Hematocrit (Bld) [Volume fraction] 38.1 % Critically low 42.0-54.0 [facility] Comment on above: Performed By: #### C BC #### [facility] [address] [place] [address] Dr. Mel Barrientos Hemoglobin (Bld) [Mass/Vol] 12.5 g/dL Critically low 14.0-18.0 [facility] Comment on above: Performed By: #### C BC #### [facility] [address] [place] [address] Dr. Mel Barrientos IG # 0.02 10e3/ul Normal 0.00-0.03 [facility] Comment on above: Performed By: #### C BC #### [facility] [address] [place] [address] Dr. Mel Barrientos IG % 0.4 % Normal 0.0-0.5 [facility] Comment on above: Performed By: #### C BC #### [facility] [address] [place] [address] Dr. Mel Barrientos LYMPH # 2.2 103/ul Normal 1.2-3.8 [facility] Comment on above: Performed By: #### C BC #### [facility] [address] [place] [address] Dr. Mel Barrientos Lymphocytes/100 WBC (Bld) 43.2 % Normal 20.5-60.0 [facility] Comment on above: Performed By: #### C BC #### [facility] [address] [place] [address] Dr. Mel Barrientos MANUAL DIFF REQ NO Normal [facility] Comment on above: Performed By: #### C BC #### [facility] [address] [place] [address] Dr. Mel Barrientos MCH (RBC) [Entitic mass] 35.1 pg Critically high 25.9-34.0 [facility] Comment on above: Performed By: #### C BC #### [facility] [address] [place] [address] Dr. Mel Barrientos MCHC (RBC) [Mass/Vol] 32.8 g/dL Normal 29.9-35.2 [facility] Comment on above: Performed By: #### C BC #### [facility] [address] [place] [address] Dr. Mel Barrientos MCV (RBC) [Entitic vol] 107.0 fL Critically high 80.0-94.0 [facility] Comment on above: Result Comment: MACR OCYTOSIS CONFIRMED ON PERIPHERAL SMEAR Performed By: #### C BC #### [facility] [address] [place] [address] Dr. Mel Barrientos MONO # 0.5 103/ul Normal 0.3-0.8 [facility] Comment on above: Performed By: #### C BC #### [facility] [address] [place] [address] Dr. Mel Barrientos Monocytes/100 WBC (Bld) 9.4 % Normal 1.7-12.0 [facility] Comment on above: Performed By: #### C BC #### [facility] [address] [place] [address] Dr. Mel Barrientos NEUT # 2.3 103/ul Normal 1.4-6.5 [facility] Comment on above: Performed By: #### C BC #### [facility] [address] [place] [address] Dr. Mel Barrientos Neutrophils/100 WBC (Bld) 45.0 % Normal 43.0-75.0 [facility] Comment on above: Performed By: #### C BC #### [facility] [address] [place] [address] Dr. Mel Barrientos Platelet mean volume (Bld) [Entitic vol] 9.3 fL Critically low 9.5-13.5 [facility] Comment on above: Performed By: #### C BC #### [facility] [address] [address] [address] Mel Barrientos PLT 307 103/ul Normal 150-450 [facility] Comment on above: Performed By: #### C BC #### [facility] [address] [address] [address] Mel Barrientos RBC 3.56 106/ul Critically low 4.70-6.10 [facility] Comment on above: Performed By: #### C BC #### [facility] [address] [address] [address] Mel Barrientos WBC 5.1 103/ul Normal 4.0-11.0 [facility] Comment on above: Performed By: #### C BC #### [facility] [address] [place] [address] Dr. Mel Barrientos PROF 14(COMP METB)on 022 Albumin [Mass/Vol] 2.3 g/dL Critically low 3.4-5.0 [facility] Comment on above: Performed By: #### L IPID, CMP #### [facility] [address] [place] [address] Dr. Mel Barrientos Albumin/Globulin [Mass ratio] 0.6 {ratio} Normal [facility] Comment on above: Performed By: #### L IPID, CMP #### [facility] [address] [place] [address] Dr. Mel Barrientos ALP [Catalytic activity/Vol] 189 U/L Critically high 46-116 [facility] Comment on above: Performed By: #### L IPID, CMP #### [facility] [address] [place] [address] Dr. Mel Barrientos ALT [Catalytic activity/Vol] 86 U/L Critically high 16-63 [facility] Comment on above: Performed By: #### L IPID, CMP #### [facility] [address] [place] [address] Dr. Mel Barrientos Anion gap [Moles/Vol] 15.4 mmol/L Normal [facility] Comment on above: Performed By: #### L IPID, CMP #### [facility] [address] [address] [address] Mel Barrientos AST [Catalytic activity/Vol] 67 U/L Critically high 15-37 [facility] Comment on above: Performed By: #### L IPID, CMP #### [facility] [address] [place] [address] Dr. Mel Barrientos Bilirubin [Mass/Vol] 0.4 mg/dL Normal 0.2-1.0 [facility] Comment on above: Performed By: #### L IPID, CMP #### [facility] [address] [place] [address] Dr. Mel Barrientos Calcium [Mass/Vol] 7.7 mg/dL Critically low 8.5-10.1 [facility] Comment on above: Performed By: #### L IPID, CMP #### [facility] [address] [place] [address] Dr. Mel Barrientos Chloride [Moles/Vol] 106 mmol/L Normal 98-107 [facility] Comment on above: Performed By: #### L IPID, CMP #### [facility] [address] [place] [address] Dr. Mel Barrientos CO2 [Moles/Vol] 17.7 mmol/L Critically low 21.0-32.0 [facility] Comment on above: Performed By: #### L IPID, CMP #### [facility] [address] [place] [address] Dr. Mel Barrientos Creatinine [Mass/Vol] 0.91 mg/dL Normal 0.70-1.30 [facility] Comment on above: Performed By: #### L IPID, CMP #### [facility] [address] [place] [address] Dr. Mel Barrientos EGFR-AF MALDIVIAN >60 Normal >=60 [facility] Comment on above: Performed By: #### L IPID, CMP #### [facility] [address] [place] [address] Dr. Mel Barrientos EGFR-NON AF MALDIVIAN >60 Normal >=60 [facility] Comment on above: Performed By: #### L IPID, CMP #### [facility] [address] [address] [address] Mel Barrientos Globulin (S) [Mass/Vol] 3.8 g/dL Normal [facility] Comment on above: Performed By: #### L IPID, CMP #### [facility] [address] [place] [address] Dr. Mel Barrientos Glucose [Mass/Vol] 77 mg/dL Normal 74-106 [facility] Comment on above: Performed By: #### L IPID, CMP #### [facility] [address] [place] [address] Dr. Mel Barrientos Potassium [Moles/Vol] 4.1 mmol/L Normal 3.5-5.1 [facility] Comment on above: Performed By: #### L IPID, CMP #### [facility] [address] [place] [address] Dr. Mel Barrientos Protein [Mass/Vol] 6.1 g/dL Critically low 6.4-8.2 [facility] Comment on above: Performed By: #### L IPID, CMP #### [facility] [address] [place] [address] Dr. Mel Barrientos Sodium [Moles/Vol] 135 mmol/L Critically low 136-145 [facility] Comment on above: Performed By: #### L IPID, CMP #### [facility] [address] [place] [address] Dr. Mel Barrientos Urea nitrogen [Mass/Vol] 25.0 mg/dL Critically high 7.0-18.0 [facility] Comment on above: Performed By: #### L IPID, CMP #### [facility] [address] [place] [address] Dr. Mel Barrientos Urea nitrogen/Creatinine [Mass ratio] 27.5 mg/mg Normal [facility] Comment on above: Performed By: #### L IPID, CMP #### [facility] [address] [place] [address] Dr. Mel Barrientos GLYCOHEMOGLOBIN A1Con 2021 ADA RECOMMENDATION ADA THERAPEUTIC TARG ET 6.0 - 7.0 ACTION SUGGESTED > 7.0 Normal [facility] Comment on above: Performed By: #### L IPID, CMP #### [facility] [address] [address] [address] Mel Barrientos Glucose [Mass/Vol] 100 mg/dL Normal [facility] Comment on above: Performed By: #### L IPID, CMP #### [facility] [address] [address] [address] Mel Barrientos HbA1c (Bld) [Mass fraction] 5.1 % Normal <=6.0 [facility] Comment on above: Performed By: #### L IPID, CMP #### [facility] [address] [address] [address] Mel Barrientos LIPID PROFILEon 10-10-2021 CHOL-HDL RATIO NORM SEE BELOW Normal [facility] Comment on above: Result Comment: 3.3 - 4.4 LOW RISK 4.4 - 7.1 AVERAGE RISK 7.1 - 11.0 MODERATE RISK >11.0 HIGH RISK Performed By: #### L IPID, CMP #### [facility] [address] [address] [address] Mel Barrientos Cholesterol [Mass/Vol] 63 mg/dL Normal <=200 [facility] Comment on above: Performed By: #### L IPID, CMP #### [facility] [address] [place] [address] Dr. Mel Barrientos Cholesterol in HDL [Mass/Vol] 12 mg/dL Critically low 40-60 [facility] Comment on above: Performed By: #### L IPID, CMP #### [facility] [address] [address] [address] Mel Barrientos Cholesterol in LDL [Mass/Vol] 32.2 mg/dL Normal [facility] Comment on above: Performed By: #### L IPID, CMP #### [facility] [address] [address] [address] Mel Barrientos Cholesterol.total/Cho lesterol in HDL [Mass ratio] 5.3 {ratio} Normal [facility] Comment on above: Performed By: #### L IPID, CMP #### [facility] [address] [place] [address] Dr. Mel Barrientos HDL NORMAL > or = 60 mg/dl - LO W CARDIOVASCULAR RISK <40 mg/dl - HIGH CARDIOVASCULAR RISK Normal [facility] Comment on above: Performed By: #### L IPID, CMP #### [facility] [address] [place] [address] Dr. Mel Barrientos LDL CALC NORMAL SEE BELOW Normal [facility] Comment on above: Result Comment: <100 mg/dl OPTIMAL 100 - 129 mg/dl NEAR OR ABOVE OPTIMAL 130 - 159 mg/dl BORDERLINE HIGH 160 - 189 mg/dl HIGH >190 mg/dl VERY HIGH Performed By: #### L IPID, CMP #### [facility] [address] [place] [address] Dr. Mel Barrientos Triglyceride [Mass/Vol] 94 mg/dL Normal <=150 [facility] Comment on above: Performed By: #### L IPID, CMP #### [facility] [address] [place] [address] Dr. Mel Barrientos VLDL CALC 18.8 mg/dL Normal [facility] Comment on above: Performed By: #### L IPID, CMP #### [facility] [address] [place] [address] Dr. Mel Barrientos PROF 14(COMP METB)on 022 Albumin [Mass/Vol] 2.4 g/dL Critically low 3.4-5.0 [facility] Comment on above: Performed By: #### L IPID, CMP #### [facility] [address] [place] [address] Dr. Mel Barrientos Albumin/Globulin [Mass ratio] 0.8 {ratio} Normal [facility] Comment on above: Performed By: #### L IPID, CMP #### [facility] [address] [place] [address] Dr. Mel Barrientos ALP [Catalytic activity/Vol] 153 U/L Critically high 46-116 [facility] Comment on above: Performed By: #### L IPID, CMP #### [facility] [address] [place] [address] Dr. Mel Barrientos ALT [Catalytic activity/Vol] 133 U/L Critically high 16-63 [facility] Comment on above: Performed By: #### L IPID, CMP #### [facility] [address] [place] [address] Dr. Mel Barrientos Anion gap [Moles/Vol] 12.1 mmol/L Normal [facility] Comment on above: Performed By: #### L IPID, CMP #### [facility] [address] [place] [address] Dr. Mel Barrientos AST [Catalytic activity/Vol] 215 U/L Critically high 15-37 [facility] Comment on above: Performed By: #### L IPID, CMP #### [facility] [address] [place] [address] Dr. Mel Barrientos Bilirubin [Mass/Vol] 0.4 mg/dL Normal 0.2-1.3 [facility] Comment on above: Performed By: #### L IPID, CMP #### [facility] [address] [place] [address] Dr. Mel Barrientos Calcium [Mass/Vol] 7.6 mg/dL Critically low 8.5-10.1 [facility] Comment on above: Performed By: #### L IPID, CMP #### [facility] [address] [place] [address] Dr. Mel Barrientos Chloride [Moles/Vol] 107 mmol/L Normal 98-107 [facility] Comment on above: Performed By: #### L IPID, CMP #### [facility] [address] [place] [address] Dr. Mel Barrientos CO2 [Moles/Vol] 22.8 mmol/L Normal 22.0-30.0 [facility] Comment on above: Performed By: #### L IPID, CMP #### [facility] [address] [place] [address] Dr. Mel Barrientos Creatinine [Mass/Vol] 0.99 mg/dL Normal 0.66-1.25 [facility] Comment on above: Performed By: #### L IPID, CMP #### [facility] [address] [place] [address] Dr. Mel Barrientos EGFR-AF MALDIVIAN >60 Normal >=60 [facility] Comment on above: Performed By: #### L IPID, CMP #### [facility] [address] [place] [address] Dr. Mel Barrientos EGFR-NON AF MALDIVIAN >60 Normal >=60 [facility] Comment on above: Performed By: #### L IPID, CMP #### [facility] [address] [place] [address] Dr. Mel Barrientos Globulin (S) [Mass/Vol] 3.2 g/dL Normal [facility] Comment on above: Performed By: #### L IPID, CMP #### [facility] [address] [place] [address] Dr. Mel Barrientos Glucose [Mass/Vol] 68 mg/dL Critically low 74-106 [facility] Comment on above: Performed By: #### L IPID, CMP #### [facility] [address] [place] [address] Dr. Mel Barrientos Potassium [Moles/Vol] 4.9 mmol/L Normal 3.4-5.0 [facility] Comment on above: Performed By: #### L IPID, CMP #### [facility] [address] [place] [address] Dr. Mel Barrientos Protein [Mass/Vol] 5.6 g/dL Critically low 6.1-8.2 [facility] Comment on above: Performed By: #### L IPID, CMP #### [facility] [address] [place] [address] Dr. Mel Barrientos Sodium [Moles/Vol] 137 mmol/L Normal 137-145 [facility] Comment on above: Performed By: #### L IPID, CMP #### [facility] [address] [place] [address] Dr. Mel Barrientos Urea nitrogen [Mass/Vol] 30.0 mg/dL Critically high 7.0-18.0 [facility] Comment on above: Performed By: #### L IPID, CMP #### [facility] [address] [address] [address] Mel Barrientos Urea nitrogen/Creatinine [Mass ratio] 30.3 mg/mg Normal [facility] Comment on above: Performed By: #### L IPID, CMP #### [facility] [address] [address] [address] Mel Barrientos CASE MANAGEMon 10-09-2017 CASE MANAGEM HNO ID: [id number] thor: Clementina Culver (Lsw)uloService: Care ManagementAuthor Type: Social WorkerType: Care Mgt Progress NoteFiled: 10/09/2017 3:12 PMNote Text:CARE MANAGEMENT DISCHARGE NOTESERVICE DATE: 10/09/2017SERVICE TIME: 3:02 PM LOS: 9 daysAdmission Date: 09/30/2017DISCHARGE ARRANGEMENT (list agency and phone number)half-way facilityProvider: [facility] IQPHHSYMX ASSESSMENT:Caregiver is ready, willing and able to meet the patient's needs asrecommended by the inter-professional team? YesPatient's transition needs and plan for meeting these needs: SNFDoes the patient have an acute stroke diagnosis, or has the patient had astroke during this admission? NoHANDOFF COMMUNICATION:Primary Care Physician: Dr. Adriane Nichols MYOVLCLRLPCRUB ARRANGEMENTS:Car FamilyADDITIONAL CONTACT RESOURCES: Pt sister Briana Muller [phone] Prior to Discharge: Ready for DischargePt medically cleared for d/c. Pt referral updated and Liaison met with Ptand nursing this afternoon. CM prepared d/c packet and 7000 and placed onPt chart w/number for nursing to call report. Per Pt and Pt sister familyto transport Pt around [phone] today. Text to Allegra GARCIA) to contactnursing on Pt d/c instructions.SIGNATURE: TRACI Hammer PATIENT NAME: Rocio FrischDATE: October 09, 2017 : 3:02 PM PAGER/CONTACT #: [phone] Normal [facility] CBC and Differentialon 10-09 Abs Baso <0.03 Normal <0.11 [facility] Comment on above: Performed By: #### P T, PTT, AMYL, CMP, LIPA, PHOS ####[place] [address]#### TRANSF ####[address] [address] [address] [phone] Abs Mcduffie 0.40 k/uL Normal <0.87 [facility] Comment on above: Performed By: #### P T, PTT, AMYL, CMP, LIPA, PHOS ####[place] [address]#### TRANSF ####[place] [address] Abs Neut 3.59 k/uL Normal 1.45-7.50 [facility] Comment on above: Performed By: #### P T, PTT, AMYL, CMP, LIPA, PHOS ####[place] [address]#### TRANSF ####[address] [place] [address] Basophils/100 WBC Auto (Bld) 0.3 % Normal [facility] Comment on above: Performed By: #### P T, PTT, AMYL, CMP, LIPA, PHOS ####[place] [address]#### TRANSF ####[address] [address] DTYPE Auto Diff Normal [facility] Comment on above: Performed By: #### P T, PTT, AMYL, CMP, LIPA, PHOS ####[place] [address]#### TRANSF ####[address] [place] [address] Eosinophils 0.10 10*3/uL Normal <0.46 [facility] Comment on above: Performed By: #### P T, PTT, AMYL, CMP, LIPA, PHOS ####[place] [address]#### TRANSF ####[address] [phone] Eosinophils/100 leukocytes 1.7 % Normal [facility] Comment on above: Performed By: #### P T, PTT, AMYL, CMP, LIPA, PHOS ####[place] [address]#### TRANSF ####[address] [address] Erythrocyte distribution width Auto Ratio (RBC) 16.8 % High 11.5-15.0 [facility] Comment on above: Performed By: #### P T, PTT, AMYL, CMP, LIPA, PHOS ####[place] [address]#### TRANSF ####[address] [address] Erythrocytes (RBC) 3.79 10*6/uL Low 4.20-6.00 [facility] Comment on above: Performed By: #### P T, PTT, AMYL, CMP, LIPA, PHOS ####[place] [address]#### TRANSF ####[address] [address] Hematocrit (HCT) 29.8 % Low 39.0-51.0 [facility] Comment on above: Performed By: #### P T, PTT, AMYL, CMP, LIPA, PHOS ####[place] [address]#### TRANSF ####[address] [phone] Hemoglobin mass conc (Bld) 9.5 g/dL Low 13.0-17.0 [facility] Comment on above: Performed By: #### P T, PTT, AMYL, CMP, LIPA, PHOS ####[place] [address]#### TRANSF ####[phone] Lymphocytes 1.69 10*3/uL Normal 1.00-4.00 [facility] Comment on above: Performed By: #### P T, PTT, AMYL, CMP, LIPA, PHOS ####[place] [address]#### TRANSF ####[phone] Lymphocytes/100 leukocytes 29.1 % Normal [facility] Comment on above: Performed By: #### P T, PTT, AMYL, CMP, LIPA, PHOS ####[place] [address]#### TRANSF ####[address] [address] MCH 25.1 pG Low 26.0-34.0 [facility] Comment on above: Performed By: #### P T, PTT, AMYL, CMP, LIPA, PHOS ####[place] [address]#### TRANSF ####[phone] MCHC mass conc (RBC) 31.9 g/dL Normal 30.5-36.0 [facility] Comment on above: Performed By: #### P T, PTT, AMYL, CMP, LIPA, PHOS ####[address]#### TRANSF ####[place] [phone] MCV 78.6 fL Low 80.0-100.0 [facility] Comment on above: Performed By: #### P T, PTT, AMYL, CMP, LIPA, PHOS ####[place] [address]#### TRANSF ####[place] [address] [address] [phone] Monocytes/100 leukocytes 6.9 % Normal [facility] Comment on above: Performed By: #### P T, PTT, AMYL, CMP, LIPA, PHOS ####[place] [address]#### TRANSF ####[phone] Neutrophils/100 WBC Auto (Bld) 62.0 % Normal [facility] Comment on above: Performed By: #### P T, PTT, AMYL, CMP, LIPA, PHOS ####[place] [address]#### TRANSF ####[place] [address] Platelet mean volume (PMV) 9.3 fL Normal 9.0-12.7 [facility] Comment on above: Performed By: #### P T, PTT, AMYL, CMP, LIPA, PHOS ####[place] [address]#### TRANSF ####[address] [phone] Platelets 421 10*3/uL High 150-400 [facility] Comment on above: Performed By: #### P T, PTT, AMYL, CMP, LIPA, PHOS ####[place] [address]#### TRANSF ####[address] [phone] WBC (Leukocytes) 5.80 10*3/uL Normal 3.70-11.00 [facility] Comment on above: Performed By: #### P T, PTT, AMYL, CMP, LIPA, PHOS ####[facility] [place], [place] [phone]#### TRANSF ####[facility] [address] [place], [place] [phone] CNDSon 10-09-2017 CNDS HNO ID: [id number] thor: Harmony (Res) MichaelService: General SurgeryAuthor Type: ResidentType: Discharge SummariesFiled: 10/27/2017 12:15 PMNote Text:DISCHARGE SUMMARYPATIENT NAME: Rocio Jackson ADMISSION DATE: 09/30/2017MRN: [id number] DISCHARGE DATE: ATTENDING PHYSICIAN: Michael Jolley)REASON FOR [...] PATIENT: (To pull info documented from the [employer] Orderset Complete O/S First): No orders of [...] Glucose (mg/dL) is:Less than 110 Give 0 [id number] Give 0 [id number] Give 2 [id number] Give 4 [id number] Give 6 [id number] Give 8 -344 Give 10 unitsGreater than 400 Give 10 [...] 20 mL by mouth once daily.Med Update, Wmee-iqgkbuyvxb-aibvinks-arnulfo lase (CREON 24) 24,000-76,000 -120,000 unit cpDRTake [...] for Stopping:FUTURE APPOINTMENTS:Follow Up with PCP: Adriane Nicholsleia AppointmentsDate Time Provider Department Ecru10/29/2017 1:30 PM Michael Jolley) [id number] (Use first blank if not applicable): TIME OF CARE: DischargeManagement: I personally spent less than 30 minutes involved in thedischarge management of this patient.SIGNATURE: Harmony Rodriguez MD PATIENT NAME: Rocio JacksonDATE: October 27, 2017 : 12:12 PM PAGER/CONTACT #: [phone] Normal [facility] Comp Metabolic Panelon 10-09 Alanine aminotransferase (ALT) 26 U/L Normal 5-50 [facility] Comment on above: Performed By: #### P T, PTT, AMYL, CMP, LIPA, PHOS ####[address] [phone]#### TRANSF ####[facility] [place], [place] [phone] Albumin 3.1 g/dL Low 3.5-5.0 [facility] Comment on above: Performed By: #### P T, PTT, AMYL, CMP, LIPA, PHOS ####[address] [phone]#### TRANSF ####[place] [address] Alkaline phosphatase (ALP) 101 U/L Normal 40-150 [facility] Comment on above: Performed By: #### P T, PTT, AMYL, CMP, LIPA, PHOS ####[place] [address]#### TRANSF ####[place] [address] Anion gap 13 mmol/L Normal 9-18 [facility] Comment on above: Performed By: #### P T, PTT, AMYL, CMP, LIPA, PHOS ####[place] [address]#### TRANSF ####[place] [address] Aspartate aminotransferase (AST) 20 U/L Normal 7-40 [facility] Comment on above: Performed By: #### P T, PTT, AMYL, CMP, LIPA, PHOS ####[place] [address]#### TRANSF ####[place] [address] Bilirubin (total) 0.2 mg/dL Normal 0.0-1.5 [facility] Comment on above: Performed By: #### P T, PTT, AMYL, CMP, LIPA, PHOS ####[place] [address]#### TRANSF ####[place] [address] Calcium 8.6 mg/dL Normal 8.5-10.5 [facility] Comment on above: Performed By: #### P T, PTT, AMYL, CMP, LIPA, PHOS ####[place] [phone]#### TRANSF ####[place] [address] Chloride 101 mmol/L Normal 98-110 [facility] Comment on above: Performed By: #### P T, PTT, AMYL, CMP, LIPA, PHOS ####[place] [address]#### TRANSF ####[place] [address] CO2 24 mmol/L Normal 23-32 [facility] Comment on above: Performed By: #### P T, PTT, AMYL, CMP, LIPA, PHOS ####[place] [address]#### TRANSF ####[place] [address] Creatinine 0.51 mg/dL Low 0.70-1.40 [facility] Comment on above: Performed By: #### P T, PTT, AMYL, CMP, LIPA, PHOS ####[place] [address]#### TRANSF ####[place] [address] eGFR (non-black) mL/min/{1.73_m2} Normal >60 [facility] Comment on above: Performed By: #### P T, PTT, AMYL, CMP, LIPA, PHOS ####[address]#### TRANSF ####[place] [address] Glucose mass conc 185 mg/dL High 65-100 [facility] Comment on above: Performed By: #### P T, PTT, AMYL, CMP, LIPA, PHOS ####[address]#### TRANSF ####[place] [address] Potassium molar conc 3.7 mmol/L Normal 3.5-5.0 [facility] Comment on above: Performed By: #### P T, PTT, AMYL, CMP, LIPA, PHOS ####[place] [address]#### TRANSF ####[place] [address] Protein 6.5 g/dL Normal 6.0-8.4 [facility] Comment on above: Performed By: #### P T, PTT, AMYL, CMP, LIPA, PHOS ####[place] [address]#### TRANSF ####[place] [address] Sodium 138 mmol/L Normal 135-146 [facility] Comment on above: Performed By: #### P T, PTT, AMYL, CMP, LIPA, PHOS ####[place] [address]#### TRANSF ####[place] [address] Urea nitrogen 20 mg/dL Normal 10-25 [facility] Comment on above: Performed By: #### P T, PTT, AMYL, CMP, LIPA, PHOS ####[place] [address]#### TRANSF ####[place] [address] NURSING PROGon 10-09-2017 NURSING PROG HNO ID: [id number] thor: Reggie (Rn) MOUSTAPHA Sawantervice: (none)Author Type: Registered NurseType: Nursing Progress NoteFiled: 10/09/2017 12:48 PMNote Text: Nursing Progress NotePatient Name: Rocio HayesN: [id number] Location: [place] [address]/[id number] ____Daily Note: Mr. Jackson up to chair most of shift thus far. Ambulated inhallway with use of walker and 1 staff. He is tolerating tube feed at40ml/hr with no nausea or vomiting. Patient also tolerating clear liquidswith increased intake today as compared to yesterday. Pain controlledwith scheduled Tylenol. Plan [facility] ([facility] today. Patient updated on plan to transfer to SNF and agreeable with plan. Calllight within reach. Will continue to monitor.This note was completed by: Reggie Sawant RN [facility] NURSING PROG HNO ID: [id number] thor: Renae Diaz (Rn) Siva, RNService: (none)Author Type: Registered NurseType: Nursing Progress NoteFiled: 10/09/2017 2:52 AMNote Text: Nursing Progress NotePatient Name: Rocio Boudreaux: [id number] [address]: [id number] ____ 2129 (late entry) Patient heart rate 119, when listening to apicalnoticed irregular rhythm and rate of 96. Patient denied chest pain ordiscomfort or SOB. residential real estate sales manager notified and telemetry ordered andapplied.2300 Patient seen by surgical garment assembly supervisor and no new orders received at thistime. 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 Patient to use [facility] Bedside Delivery - N/A2. If fax, patient would like us to fax prescriptions to [facility] a. Pharmacy: b. Location: c. Phone:3. Insurance card on file - N/A4. Credit card for payment - N/A [facility] PROGRESSon 10-09-2017 PROGRESS HNO ID: [id number] thor: Michael Cedillo) AugustinService: General SurgeryAuthor Type: PhysicianType: Progress NotesFiled: 10/09/2017 10:59 AMNote Text:SURGICAL SERVICES PROGRESS NOTENAME: Rocio JacksonMRN: [id number]: 10/09/2017Time: 8:16 JUDIE DATE: 09/30/20179 Days Post-OpProcedure(s) [...] on POD 3 nml, removed. Transferred to [facility]??Patient did well overnight with no acute [...] (195 lb 12.3 oz) SpO2 96% BMI29.77 kg/f9Yofzrk/Output Summary (Last 24 hours) at 10/09/17 0952Last data filed at 10/09/17 0900 Gross per 24 hourIntake 2372 mlOutput 1600 mlNet 772 mlDIAGNOSTIC STUDIES:CBC, BMP, MG, PHOSRecent Labs 633 10/08/18035510/06/1803WBC 5.80 6.53 6.79 7.03 5.61 4.20HB 9.5* [...] 39.8* 31.6INR 1.2 1.1 1.0 2.0* 2.0* 1.5*ALEXEY Fisheresibakarit, PGY-1 - General SurgeryPager [phone] [facility] THERAPY NTon 10-09-2017 THERAPY NT HNO ID: [id number] thor: Alicia Sinhaervice: Occupational TherapyAuthor Type: Occupational TherapistType: Therapy (PT/OT/Speech/Resp)Filed: 10/09/2017 3:06 PMNote Text:OCCUPATIONAL THERAPY MISSED VISITSERVICE DATE: 10/09/2017SERVICE TIME: 1400 to 1400ROOM: [id number] Treatment. Patient not seen due to (being D/C this pm).SIGNATURE: WENDY Ramires/Timo PATIENT NAME: Rocio RenettaDATE: October 09, 2017 : 3:06 PM PAGER/CONTACT #:[phone] [facility] THERAPY NT HNO ID: [id number] thor: Saima Feliciano (Cota)pasService: Occupational TherapyAuthor Type: Occupational Therapy AssistantType: Therapy (PT/OT/Speech/Resp)Filed: 10/09/2017 10:11 AMNote Text: -Attestation signed by Jacqueline Arshad at 10/09/2017 12:31 PMI reviewed and agree with the documentation corresponding to this therapyvisit.SIGNATURE: WENDY Chaparro/LDATE: October 09, 2017TIME: 12:31 PM OC CUPATIONAL THERAPY MISSED VISITSERVICE DATE: 10/09/2017SERVICE TIME: 1009 to 1009ROOM: [id number] Treatment. Patient not seen due to Sleeping. Nursing aware(Reggie)SIGNATURE: TRACY Dumont PATIENT NAME: Rocio JacksonDATE: October 09, 2017 : 10:10 AM PAGER/CONTACT #:[phone] [facility] CASE MANAGEMon 10-08-2017 CASE MANAGEM HNO ID: [id number] thor: Clementina Culver (Lsw)uloService: Care ManagementAuthor Type: Social WorkerType: Care Mgt Progress NoteFiled: 10/08/2017 4:29 PMNote Text:MULTIDISCIPLINARY ROUNDSSERVICE DATE: 10/08/2017 ADMISSION DATE: 09/30/2017SERVICE TIME: 10:45 AM ANTICIPATED D/C DATE: 10/10/2017Problem List:ACTIVE PROBLEM LISTDuodenal ObstructionSevere Protein-Calorie Malnutrition (Hcc)Duodenal Cancer (Hcc)Attendees Present at Rounds:Pit Worker Power Shovel: yFamily: yPatient: Rocio Shaikh Nurse: Laura Discussed on Rounds:DietDischarge NeedsFamily ConcernsMobilityPlan of CareAnticipated Discharge Disposition:Assisted FacilityLast Vitals: BP 153/85 Pulse 90 Temp (Src) 97.9 (Oral) Resp 16 Ht5' 7.992 (1.73m) Wt 195 lb 12.3 oz (88.8kg) SpO2 97% BMI 29.77kg/(m2).Pt SNF vs [place]. Most likely SNFNursing:DOCUMENTED BY: TRACI Hammer PATIENT NAME: Rocio TorresschDATE: October 08, 2017 : 4:27 PM CSN: [id number] [facility] CASE MANAGEM HNO ID: [id number] thor: Clementina Florez) PalomouloService: Care ManagementAuthor Type: Social WorkerType: Care Mgt Progress NoteFiled: 10/08/2017 4:37 PMNote Text:CARE MANAGEMENT PROGRESS NOTESERVICE DATE: 10/08/2017SERVICE TIME: 1:16 PM LOS: 8 daysNeeds Prior to Discharge: Precertification;Accepting Facility;Other: SeeComment (Pt and Pt sister [facility]ays they are not able to accept Pt AND feel Pt best suited for SNF. Familymet w Liaison from [facility] who is willing to accept although waitingon acceptance from 1st choice [place])CM phoned and left message inquiring on acceptance of Pt for intake -Denise Garcia.ADDENDUM: 1630: Per Paty at [facility] Pt Insurance is Out ofNetwork. CM met with Pt bedside. Pt sister present, CM discussedinsurance and Pt SNF choices. Per Pt he [facility]. CM requested precert to begin.SIGNATURE: TRACI Hammer PATIENT NAME: Rocio TorresdonnyDATE: October 08, 2017 : 1:16 PM PAGER/CONTACT #: [phone] [facility] CASE MANAGEM HNO ID: [id number] thor: Clementina Florez) Marirvice: Care ManagementAuthor Type: Social WorkerType: Care Mgt Progress NoteFiled: 10/08/2017 9:11 AMNote Text:CARE MANAGEMENT PROGRESS NOTESERVICE DATE: 10/08/2017SERVICE TIME: 9:08 AM LOS: 8 daysFREEDOM OF CHOICE GIVEN:Yes Pt. Rocio Jackson and sister (Jess)Financial Disclosure ProvidedThe patient and/or family has been given the Provider List: YesPreference: [place] vs SNFNeeds Prior to Discharge: Accepting Facility;To BeDetermined;Precertificatio nCMSW met with Pt bedside, Pt AANDOx4. Pt sisterJess is present. Per Ptand sister [facility] ([place]) CM spoke w/alina Sarabia [phone] in admission whowill review Pt to determine acceptance. [facility] CM sent referrals.SIGNATURE: TRACI Hammer PATIENT NAME: Rocio JacksonDATE: October 08, 2017 : 9:08 AM PAGER/CONTACT #: [phone] Normal [facility] CBC and Differentialon 10-08 Abs Baso <0.03 Normal <0.11 [facility] Comment on above: Performed By: #### P T, PTT, AMYL, CMP, LIPA, PHOS ####[place] [phone]#### TRANSF ####[phone] Abs Mcduffie 0.38 k/uL Normal <0.87 [facility] Comment on above: Performed By: #### P T, PTT, AMYL, CMP, LIPA, PHOS ####[place] [phone]#### TRANSF ####[place] [address] Abs Neut 4.15 k/uL Normal 1.45-7.50 [facility] Comment on above: Performed By: #### P T, PTT, AMYL, CMP, LIPA, PHOS ####[place] [address]#### TRANSF ####[place] [address] Basophils/100 WBC Auto (Bld) 0.3 % Normal [facility] Comment on above: Performed By: #### P T, PTT, AMYL, CMP, LIPA, PHOS ####[place] [address]#### TRANSF ####[place] [address] DTYPE Auto Diff Normal [facility] Comment on above: Performed By: #### P T, PTT, AMYL, CMP, LIPA, PHOS ####[place] [address]#### TRANSF ####[place] [address] Eosinophils 0.07 10*3/uL Normal <0.46 [facility] Comment on above: Performed By: #### P T, PTT, AMYL, CMP, LIPA, PHOS ####[place] [address]#### TRANSF ####[place] [address] Eosinophils/100 leukocytes 1.1 % Normal [facility] Comment on above: Performed By: #### P T, PTT, AMYL, CMP, LIPA, PHOS ####[place] [address]#### TRANSF ####[place] [address] Erythrocyte distribution width Auto Ratio (RBC) 16.8 % High 11.5-15.0 [facility] Comment on above: Performed By: #### P T, PTT, AMYL, CMP, LIPA, PHOS ####[place] [address]#### TRANSF ####[place] [address] Erythrocytes (RBC) 3.72 10*6/uL Low 4.20-6.00 [facility] Comment on above: Performed By: #### P T, PTT, AMYL, CMP, LIPA, PHOS ####[place] [address]#### TRANSF ####[place] [address] Hematocrit (HCT) 29.5 % Low 39.0-51.0 [facility] Comment on above: Performed By: #### P T, PTT, AMYL, CMP, LIPA, PHOS ####[place] [address]#### TRANSF ####[place] [address] Hemoglobin mass conc (Bld) 9.4 g/dL Low 13.0-17.0 [facility] Comment on above: Performed By: #### P T, PTT, AMYL, CMP, LIPA, PHOS ####[place] [address]#### TRANSF ####[place] [address] Lymphocytes 1.91 10*3/uL Normal 1.00-4.00 [facility] Comment on above: Performed By: #### P T, PTT, AMYL, CMP, LIPA, PHOS ####[place] [address]#### TRANSF ####[place] [address] Lymphocytes/100 leukocytes 29.2 % Normal [facility] Comment on above: Performed By: #### P T, PTT, AMYL, CMP, LIPA, PHOS ####[place] [address]#### TRANSF ####[place] [address] MCH 25.3 pG Low 26.0-34.0 [facility] Comment on above: Performed By: #### P T, PTT, AMYL, CMP, LIPA, PHOS ####[place] [address]#### TRANSF ####[place] [address] MCHC mass conc (RBC) 31.9 g/dL Normal 30.5-36.0 [facility] Comment on above: Performed By: #### P T, PTT, AMYL, CMP, LIPA, PHOS ####[place] [address]#### TRANSF ####[place] [address] MCV 79.3 fL Low 80.0-100.0 [facility] Comment on above: Performed By: #### P T, PTT, AMYL, CMP, LIPA, PHOS ####[place] [address]#### TRANSF ####[place] [address] Monocytes/100 leukocytes 5.8 % Normal [facility] Comment on above: Performed By: #### P T, PTT, AMYL, CMP, LIPA, PHOS ####[place] [address]#### TRANSF ####[place] [address] Neutrophils/100 WBC Auto (Bld) 63.6 % Normal [facility] Comment on above: Performed By: #### P T, PTT, AMYL, CMP, LIPA, PHOS ####[place] [address]#### TRANSF ####[place] [phone] Platelet mean volume (PMV) 9.3 fL Normal 9.0-12.7 [facility] Comment on above: Performed By: #### P T, PTT, AMYL, CMP, LIPA, PHOS ####[place] [address]#### TRANSF ####[place] [address] Platelets 370 10*3/uL Normal 150-400 [facility] Comment on above: Performed By: #### P T, PTT, AMYL, CMP, LIPA, PHOS ####[place] [address]#### TRANSF ####[place] [address] WBC (Leukocytes) 6.53 10*3/uL Normal 3.70-11.00 [facility] Comment on above: Performed By: #### P T, PTT, AMYL, CMP, LIPA, PHOS ####[place] [address]#### TRANSF ####[phone] CONSULT PROGon 10-08-2017 CONSULT PROG HNO ID: [id number] thor: Damaris Rojasice: EndocrinologyAuthor Type: PhysicianType: Consult Progress NoteFiled: 10/09/2017 9:48 AMNote Text:ENDOCRINOLOGY PROGRESS NOTEPATIENT NAME: Rocio JacksonN: [id number] DATE: 10/08/2017SERVICE TIME: 5:27 PMREASON FOR CONSULT: [...] with pRBC on 10/02/2017 so obtaining a EaP2tbsx will not be helpful. He is receiving [...] Date- ANGIOPLASTY HX 05/15/2011 2 stents s/p OR;[facility]- CHOLECYSTECTOMY 08/11/2017 [facility]- PICC LINE INSERT/CONSULT 08/16/2017No family history on file.Social HistorySubstance Use Topics- Smoking status: Former Smoker Types: Cigarettes Quit date: 2010- Smokeless tobacco: Never Used- Alcohol use 1.5 oz/week 1 Cans of Beer (12oz) per week Comment: occasional beerCURRENT MEDICATION:Current Facility-Administered Medications:insulin glargine 10 Units injection (long acting) (LANTUS) 10 UnitsSUBCUTANEOUS AT BEDTIME Damaris [place] 10 Units at 10/07/17 2100erythromycin ethyl succinate [...] (rapid acting) (HumaLOG) SUBCUTANEOUS q 6 HDorota [place] 1 Units at 10/08/17 1351fentaNYL 50 mcg/mL 25 mcg injection (SUBLIMAZE) 25 mcg INTRAVENOUS q 4 HPRN Allegra S (Pa) Miglionicoacetaminophen 650 mg CUP (TYLENOL) 650 mg ORAL q 6 H Allegra S (Pa)Miglionico 650 mg at 10/08/17 1329oxyCODONE 5 mg oral liquid (ROXICODONE) 5 mg ORAL q 4 H PRN Yrn Cedillo)Gonzalo 5 mg at 10/07/17 7329uibemh-mczbflbf-kmipfkn 2 capsule cap(s) (CREON 24) 2 capsule ORAL TID wMEALS Flynn (Res) MD Jane 2 capsule at 10/08/17 0830phenol 1 Candor (CHLORASEPTIC) 1 Candor MUCOUS MEMBRANE (TOPICAL MOUTH ANDTHROAT) q 2 H PRN Kolby (Res) Kevin 1 Candor at 10/02/17 15230.9% NaCl 2-10 mL 2-10 mL INTRAVENOUS q [...] lb 12.3 oz) SpO2 97% BMI 29.77 kg/d2Ngbjcnh: Well appearing, sleeping, in no acute distress.Skin: skin color is pale.Heart: RRRExtremities: Trace edema present in the lower extremities.DATA:Diagnostic tests reviewed for today's visit:Most recent labsComponent Glucose, Point of Care InsulinLatest Ref Rng AND Units 74 - 99 mg/dL10/07/2017 5:41 AM 183 (A) H210/07/2017 11:33 AM 195 (A) H210/07/2017 5:28 PM 193 (A) H210/07/2017 8:34 PM 202 (A) Lantus 11:46 PM 178 (A) H210/08/2017 5:44 AM 172 (A) 21/06/2018 1:17 PM 199 (A) U2Vddsgalib Latest Ref Rng AND Units 10/07/2017 10/08/2017 [...] MDDATE: October 08, 2017TIME: 5:27 PM Normal [facility] Comp Metabolic Panelon 10-08 Alanine aminotransferase (ALT) 31 U/L Normal 5-50 [facility] Comment on above: Performed By: #### P T, PTT, AMYL, CMP, LIPA, PHOS ####[facility] [place], [place] [phone]#### TRANSF ####[facility] [address] [place], [place] [phone] Albumin 3.3 g/dL Low 3.5-5.0 [facility] Comment on above: Performed By: #### P T, PTT, AMYL, CMP, LIPA, PHOS ####[place] [address]#### TRANSF ####[place] [address] Alkaline phosphatase (ALP) 106 U/L Normal 40-150 [facility] Comment on above: Performed By: #### P T, PTT, AMYL, CMP, LIPA, PHOS ####[place] [address]#### TRANSF ####[place] [address] Anion gap 13 mmol/L Normal 9-18 [facility] Comment on above: Performed By: #### P T, PTT, AMYL, CMP, LIPA, PHOS ####[place] [address]#### TRANSF ####[place] [address] Aspartate aminotransferase (AST) 25 U/L Normal 7-40 [facility] Comment on above: Performed By: #### P T, PTT, AMYL, CMP, LIPA, PHOS ####[place] [address]#### TRANSF ####[place] [address] Bilirubin (total) 0.2 mg/dL Normal 0.0-1.5 [facility] Comment on above: Performed By: #### P T, PTT, AMYL, CMP, LIPA, PHOS ####[place] [address]#### TRANSF ####[address] [place] [address] Calcium 8.8 mg/dL Normal 8.5-10.5 [facility] Comment on above: Performed By: #### P T, PTT, AMYL, CMP, LIPA, PHOS ####[place] [address]#### TRANSF ####[place] [address] Chloride 102 mmol/L Normal 98-110 [facility] Comment on above: Performed By: #### P T, PTT, AMYL, CMP, LIPA, PHOS ####[place] [address]#### TRANSF ####[place] [address] CO2 26 mmol/L Normal 23-32 [facility] Comment on above: Performed By: #### P T, PTT, AMYL, CMP, LIPA, PHOS ####[place] [address]#### TRANSF ####[place] [address] Creatinine 0.55 mg/dL Low 0.70-1.40 [facility] Comment on above: Performed By: #### P T, PTT, AMYL, CMP, LIPA, PHOS ####[place] [address]#### TRANSF ####[place] [address] eGFR (non-black) mL/min/{1.73_m2} Normal >60 [facility] Comment on above: Performed By: #### P T, PTT, AMYL, CMP, LIPA, PHOS ####[place] [address]#### TRANSF ####[place] [phone] Glucose mass conc 152 mg/dL High 65-100 [facility] Comment on above: Performed By: #### P T, PTT, AMYL, CMP, LIPA, PHOS ####[place] [address]#### TRANSF ####[place] [address] Potassium molar conc 3.8 mmol/L Normal 3.5-5.0 [facility] Comment on above: Performed By: #### P T, PTT, AMYL, CMP, LIPA, PHOS ####[place] [address]#### TRANSF ####[place] [address] Protein 6.7 g/dL Normal 6.0-8.4 [facility] Comment on above: Performed By: #### P T, PTT, AMYL, CMP, LIPA, PHOS ####[place] [address]#### TRANSF ####[place] [address] Sodium 141 mmol/L Normal 135-146 [facility] Comment on above: Performed By: #### P T, PTT, AMYL, CMP, LIPA, PHOS ####[place] [address]#### TRANSF ####[place] [address] Urea nitrogen 18 mg/dL Normal 10-25 [facility] Comment on above: Performed By: #### P T, PTT, AMYL, CMP, LIPA, PHOS ####[place] [address]#### TRANSF ####[place] [phone] NURSING PROGon 10-08-2017 NURSING PROG HNO ID: [id number] thor: Reggie (Rn) MOUSTAPHA Sawantervice: (none)Author Type: Registered NurseType: Nursing Progress NoteFiled: 10/08/2017 8:55 AMNote Text: Nursing Progress NotePatient Name: Rocio Boudreaux: [id number] Location: [place] [id number] ____Daily Note: Mr. Jackson awake and alert [...] note was completed by: Reggie Sawant RN [facility] PROGRESSon 10-08-2017 PROGRESS HNO ID: [id number] thor: Salvador (Georges) ASHLEY Birminghamervice: General SurgeryAuthor Type: ResidentType: Progress NotesFiled: 10/08/2017 9:38 AMNote Text:SURGICAL SERVICES PROGRESS NOTENAME: Rocio HayesN: [id number]: 10/08/2017Time: 8:16 JUDIE DATE: 09/30/20178 Days Post-OpProcedure(s) [...] on POD 3 nml, removed. Transferred to [facility]??Patient did well overnight with no acute [...] ac/hsfor DGE- IPCs, SQH- Continue care on [facility]; will continue dispo planning for SNF todayPHYSICAL EXAM:GENERAL: AOx3, NADLUNGS: Nonlabored breathingABDOMEN: Soft, non-distended, nontenderSKIN: Warm, well perfusedBP 152/78 Pulse 73 Temp 37.3 ?C (99.1 ?F) (Oral) Resp 16 Ht 172.7cm (5' 7.99 ) Wt 88.8 kg (195 lb 12.3 oz) SpO2 97% BMI 29.77 kg/i3Sxjfch/Output Summary (Last 24 hours) at 10/08/17 0936Last [...] 2.0* 1.5*Tasha Fishert, PGY-1 - General SurgeryPager [phone] [facility] ALLIED HEALTHon 10-07-2017 ALLIED HEALTH HNO ID: [id number] thor: Allegra (Rt) Sally Espitiae: RadiologyAuthor Type: TechnicianType: Allied HealthFiled: 10/07/2017 12:43 PMNote Text: Radiology Service Progress NotePATIENT NAME: Rocio JacksonPETRONA: [id number] OF SERVICE: October 07, 2017TIME: 12:42 PMPATIENT IDENTITY VERIFICATION COMPLETED USING TWO (2) METHODS: Patientconfirmed name verbally and ID band matches..PATIENT GENDER DATA: MalePATIENT RELEVANT IMPLANT DATA REVIEWED: Not ApplicableRADIOLOGY DEPARTMENT: General X-ray: Exam(s) Completed: Chest X-RayAbdomen X-Ray Abdomen Supine / AP ErectPERIPHERAL IV DATA: Not applicableSIGNED BY: Omkar Dinh RTApril 2017 12:42 PM [facility] CASE MANAGEMon 10-07-2017 CASE MANAGEM HNO ID: [id number] thor: Clementina Culver (Lsw)uloService: Care ManagementAuthor Type: [...] ratings. Pt [facility]. Per Pt and sisters they would like toreview list and facilities and provided choices in the morning. CMdiscussed w/nursing.SIGNATURE: TRACI Hammer PATIENT NAME: Rocio TorresdonnyDATE: October 07, 2017 : 12:32 PM PAGER/CONTACT #: [phone] Normal [facility] CBC and Differentialon 10-07 Abs Baso <0.03 Normal <0.11 [facility] Comment on above: Performed By: #### P T, PTT, AMYL, CMP, LIPA, PHOS ####[facility] [place], [place] [phone]#### TRANSF ####[facility] [place], [place] [phone] Abs Mcduffie 0.49 k/uL Normal <0.87 [facility] Comment on above: Performed By: #### P T, PTT, AMYL, CMP, LIPA, PHOS ####[address] [phone]#### TRANSF ####[place] [address] Abs Neut 4.36 k/uL Normal 1.45-7.50 [facility] Comment on above: Performed By: #### P T, PTT, AMYL, CMP, LIPA, PHOS ####[place] [address]#### TRANSF ####[place] [address] Basophils/100 WBC Auto (Bld) 0.1 % Normal [facility] Comment on above: Performed By: #### P T, PTT, AMYL, CMP, LIPA, PHOS ####[place] [address]#### TRANSF ####[place] [address] DTYPE Auto Diff Normal [facility] Comment on above: Performed By: #### P T, PTT, AMYL, CMP, LIPA, PHOS ####[place] [address]#### TRANSF ####[place] [address] Eosinophils 0.04 10*3/uL Normal <0.46 [facility] Comment on above: Performed By: #### P T, PTT, AMYL, CMP, LIPA, PHOS ####[place] [address]#### TRANSF ####[place] [address] Eosinophils/100 leukocytes 0.6 % Normal [facility] Comment on above: Performed By: #### P T, PTT, AMYL, CMP, LIPA, PHOS ####[place] [id number]#### TRANSF ####[place] [address] Erythrocyte distribution width Auto Ratio (RBC) 16.8 % High 11.5-15.0 [facility] Comment on above: Performed By: #### P T, PTT, AMYL, CMP, LIPA, PHOS ####[place] [address]#### TRANSF ####[place] [address] Erythrocytes (RBC) 3.55 10*6/uL Low 4.20-6.00 [facility] Comment on above: Performed By: #### P T, PTT, AMYL, CMP, LIPA, PHOS ####[place] [address]#### TRANSF ####[place] [address] Hematocrit (HCT) 28.9 % Low 39.0-51.0 [facility] Comment on above: Performed By: #### P T, PTT, AMYL, CMP, LIPA, PHOS ####[place] [address]#### TRANSF ####[place] [address] Hemoglobin mass conc (Bld) 8.9 g/dL Low 13.0-17.0 [facility] Comment on above: Performed By: #### P T, PTT, AMYL, CMP, LIPA, PHOS ####[place] [address]#### TRANSF ####[place] [address] Lymphocytes 1.89 10*3/uL Normal 1.00-4.00 [facility] Comment on above: Performed By: #### P T, PTT, AMYL, CMP, LIPA, PHOS ####[place] [address]#### TRANSF ####[place] [address] Lymphocytes/100 leukocytes 27.8 % Normal [facility] Comment on above: Performed By: #### P T, PTT, AMYL, CMP, LIPA, PHOS ####[place] [address]#### TRANSF ####[place] [address] MCH 25.1 pG Low 26.0-34.0 [facility] Comment on above: Performed By: #### P T, PTT, AMYL, CMP, LIPA, PHOS ####[place] [address]#### TRANSF ####[place] [address] MCHC mass conc (RBC) 30.8 g/dL Normal 30.5-36.0 [facility] Comment on above: Performed By: #### P T, PTT, AMYL, CMP, LIPA, PHOS ####[place] [address]#### TRANSF ####[place] [address] MCV 81.4 fL Normal 80.0-100.0 [facility] Comment on above: Performed By: #### P T, PTT, AMYL, CMP, LIPA, PHOS ####[place] [address]#### TRANSF ####[place] [address] Monocytes/100 leukocytes 7.2 % Normal [facility] Comment on above: Performed By: #### P T, PTT, AMYL, CMP, LIPA, PHOS ####[place] [address]796[address]#### TRANSF ####[address] AvManuel [place] [phone] Neutrophils/100 WBC Auto (Bld) 64.3 % Normal [facility] Comment on above: Performed By: #### P T, PTT, AMYL, CMP, LIPA, PHOS ####[place] [address]#### TRANSF ####[place] [phone] Platelet mean volume (PMV) 9.2 fL Normal 9.0-12.7 [facility] Comment on above: Performed By: #### P T, PTT, AMYL, CMP, LIPA, PHOS ####[place] [address]#### TRANSF ####[place] [phone] Platelets 329 10*3/uL Normal 150-400 [facility] Comment on above: Performed By: #### P T, PTT, AMYL, CMP, LIPA, PHOS ####[place] [phone]#### TRANSF ####[place] [phone] WBC (Leukocytes) 6.79 10*3/uL Normal 3.70-11.00 [facility] Comment on above: Performed By: #### P T, PTT, AMYL, CMP, LIPA, PHOS ####[address]#### TRANSF ####[address] [place] [phone] Comp Metabolic Panelon 10-07 Alanine aminotransferase (ALT) 32 U/L Normal 5-50 [facility] Comment on above: Performed By: #### P T, PTT, AMYL, CMP, LIPA, PHOS ####[place] [address]#### TRANSF ####[place] [address] Albumin 3.2 g/dL Low 3.5-5.0 [facility] Comment on above: Performed By: #### P T, PTT, AMYL, CMP, LIPA, PHOS ####[place] [address]#### TRANSF ####[place] [address] Alkaline phosphatase (ALP) 106 U/L Normal 40-150 [facility] Comment on above: Performed By: #### P T, PTT, AMYL, CMP, LIPA, PHOS ####[place] [address]#### TRANSF ####[place] [address] Anion gap 11 mmol/L Normal 9-18 [facility] Comment on above: Performed By: #### P T, PTT, AMYL, CMP, LIPA, PHOS ####[place] [address]#### TRANSF ####[place] [address] Aspartate aminotransferase (AST) 30 U/L Normal 7-40 [facility] Comment on above: Performed By: #### P T, PTT, AMYL, CMP, LIPA, PHOS ####[place] [id number]#### TRANSF ####[place] [id number] Bilirubin (total) 0.2 mg/dL Normal 0.0-1.5 [facility] Comment on above: Performed By: #### P T, PTT, AMYL, CMP, LIPA, PHOS ####[place] [id number]#### TRANSF ####[place] [id number] Calcium 8.8 mg/dL Normal 8.5-10.5 [facility] Comment on above: Performed By: #### P T, PTT, AMYL, CMP, LIPA, PHOS ####[place] [id number]#### TRANSF ####[place] [address] Chloride 104 mmol/L Normal 98-110 [facility] Comment on above: Performed By: #### P T, PTT, AMYL, CMP, LIPA, PHOS ####[place] [id number]#### TRANSF ####[place] [address] CO2 27 mmol/L Normal 23-32 [facility] Comment on above: Performed By: #### P T, PTT, AMYL, CMP, LIPA, PHOS ####[place] [address]#### TRANSF ####[place] [address] Creatinine 0.60 mg/dL Low 0.70-1.40 [facility] Comment on above: Performed By: #### P T, PTT, AMYL, CMP, LIPA, PHOS ####[place] [address]#### TRANSF ####[place] [address] eGFR (non-black) mL/min/{1.73_m2} Normal >60 [facility] Comment on above: Performed By: #### P T, PTT, AMYL, CMP, LIPA, PHOS ####[place] [address]#### TRANSF ####[place] [phone] Glucose mass conc 175 mg/dL High 65-100 [facility] Comment on above: Performed By: #### P T, PTT, AMYL, CMP, LIPA, PHOS ####[place] [address]#### TRANSF ####[phone] Potassium molar conc 4.1 mmol/L Normal 3.5-5.0 [facility] Comment on above: Performed By: #### P T, PTT, AMYL, CMP, LIPA, PHOS ####[place] [address]#### TRANSF ####[place] [address] Protein 6.6 g/dL Normal 6.0-8.4 [facility] Comment on above: Performed By: #### P T, PTT, AMYL, CMP, LIPA, PHOS ####[place] [address]#### TRANSF ####[place] [address] Sodium 142 mmol/L Normal 135-146 [facility] Comment on above: Performed By: #### P T, PTT, AMYL, CMP, LIPA, PHOS ####[address]#### TRANSF ####[place] [address] Urea nitrogen 20 mg/dL Normal 10-25 [facility] Comment on above: Performed By: #### P T, PTT, AMYL, CMP, LIPA, PHOS ####[place] [address]#### TRANSF ####[place] [phone] Magnesiumon 10-07-2017 Magnesium 2.0 mg/dL Normal 1.7-2.6 [facility] Comment on above: Performed By: #### P T, PTT, AMYL, CMP, LIPA, PHOS ####[place] [address]#### TRANSF ####[place] [phone] NURSING PROGon 10-07-2017 NURSING PROG HNO ID: [id number] thor: Kevin (Rn) Shanell, RNService: (none)Author Type: Registered NurseType: Nursing Progress NoteFiled: 10/07/2017 9:41 PMNote Text: Nursing Progress NotePatient Name: Rocio Boudreaux: [id number] Location: [place] [address]/AC-[id number] ____Daily Note:Pt medicated per AUG. Pt AANDO x3. Pt with minimal pain- Administeredscheduled Tyl per orders. No SOB or headache. IV capped per orders. RUQdrain clamped per orders. Corpak with tube feed infusing per orders.Incision to abdomen- ADELA- C,D,I. No further needs. Call werner within reach.This note was completed by: KEVIN WALKER RN [facility] NURSING PROG HNO ID: [id number] thor: Saima KenRn) Clayton Richardsonice: (none)Author Type: Registered NurseType: Nursing Progress NoteFiled: 10/07/2017 6:57 PMNote Text: Nursing Progress NotePatient Name: Rocio HayesN: [id number] Location: [facility]/[id number] ____Daily Note:Pt resting in the bed and [...] note was completed by: Saima Richardson RN [facility] NURSING PROG HNO ID: [id number] thor: Kevin (Rn) MOUSTAPHA Walkerervice: (none)Author Type: Registered NurseType: Nursing Progress NoteFiled: 10/07/2017 1:21 AMNote Text: Nursing Progress NotePatient Name: Rocio HayesN: [id number] Location: [facility]/[id number] ____Daily Note:2330- Took over care for pt. Pt assessed. Pt medicated per MAR. Pt AANDO x3.Pt with minimal pain- Administered scheduled Tyl per orders. No SOB orheadache. IV capped per orders. RUQ drain clamped per orders. Corpak withtube feed infusing per orders. 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 No furtherneeds. Call werner within reach.This note was completed by: KEVIN WALKER RN [facility] PLAN OF CAREon 10-07-2017 PLAN OF CARE HNO ID: [id number] thor: Macie Cruz (Pharmacist)Service: PharmacyAuthor Type: PharmacistType: Plan of CareFiled: 10/07/2017 2:09 PMNote Text:MEDICATION HISTORY AND MEDICATION RECONCILIATIONPatient Name:.Rocio TorresdonnyMRN: [id number]: 1955Source of history:Family: Reliability of source: Appears reliable,clearly identified: Medication name, Medication dose, Medication route,Medication frequency and IndicationsMedication Nonadherence Identified: No barriers notedThe above information represents the best possible medication history: YesReconciliation completed? Yes All SUPERVISOR SOUND TECHNICIAN medications addressed by LIPAdditional comments: N/AAllergies: ALLERGIESNo Known AllergiesCurrent SUPERVISOR SOUND TECHNICIAN Medications:Prior to Admission medications as of 10/07/17 [...] Take by mouth once daily. 09/29/2017 at 0900YesDPatricia Garcia 2017 2:09 PM [facility] PROGRESSon 10-07-2017 PROGRESS HNO ID: [id number] thor: Harmony (Georges) Rondae: General SurgeryAuthor Type: ResidentType: Progress NotesFiled: 10/07/2017 8:27 AMNote Text:SURGICAL SERVICES PROGRESS NOTENAME: Rocio JacksonMRN: [id number]: 10/07/2017Time: 8:16 JUDIE DATE: 09/30/20177 Days Post-OpProcedure(s) [...] on POD 3 nml, removed. Transferred to [facility]??Patient did well overnight with no acute [...] ac/hsfor DGE- IPCs, SQH- Continue care on [facility]; will begin disposition planning todayPHYSICAL EXAM:GENERAL: AOx3, NADLUNGS: Nonlabored breathingABDOMEN: Soft, non-distendedSKIN: Warm, well perfusedBP 147/79 Pulse 63 Temp 37.3 ?C (99.1 ?F) (Oral) Resp 16 Ht 172.7cm (5' 7.99 ) Wt 88.8 kg (195 lb 12.3 oz) SpO2 97% BMI 29.77 kg/m2Date 10/06/17 0700 - 10/07/17 0659 10/07/17 07 - 10/08/17 0659Shift 7084-8199 4770-4573 6522-9771 24 Hour Total 3335-7385 0017-67786682-6252 24 Hour TotalINTAKE PO 956 956 Tube Feed Intake (GI Feed/Drain 09/30/17 Small Bore Feeding Right Naris10 Fr) 956 956 Irrigants 5 5 100 110 Irrigant/Flush Amount In (Drain/Tube [facility] #3) 5 5 10 Irrigant/Flush Amount In (GI Feed/Drain 09/30/17 Small Bore FeedingRight Naris 10 Fr) 100 100 Shift Total 5 5 1056 1066OUTPUT Urine 400 791 291 1196 Void (ml) 400 745 238 5047 Emesis 150 150 Emesis (ml) 150 150 [...] 32 10/07/2017MATI Mejia II general surgery 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-greenPager [phone] - Personal [facility] PT EDon 10-07-2017 PT ED HNO ID: [id number] thor: Macie Cruz (Pharmacist)Service: PharmacyAuthor Type: PharmacistType: Patient EducationFiled: 10/07/2017 2:13 PMNote Text:Clinical Pharmacy ServicesHigh Risk: Daily Medication AssessmentPatient Name: Rocio JacksonN: [id number] Date: 09/30/2017Service Date and Time: 10/07/2017 2:12 PMNew MedicationsThe following medications have been started since last pharmacy review:naloxone, oxycodone, chloraceptic, scopolamineMedication education has been completed: YesSignature: Macie Cruz PharmacistFairview: [phone]: [phone] [facility] PT ED HNO ID: [id number] thor: Macie Cruz (Pharmacist)Service: PharmacyAuthor Type: PharmacistType: Patient EducationFiled: 10/07/2017 2:12 PMNote Text:Clinical Pharmacy ServicesHigh Risk: Daily Medication AssessmentPatient Name: Rocio JacksonN: [id number] Date: 09/30/2017Service Date and Time: 10/07/2017 2:11 PMNew MedicationsThe following medications have been started since last pharmacy review:lantus, humalog, creon, magnesium, metoclopramideMedication education has been completed: YesSignature: Macie Cruz PharmacistFairview: [phone]: [phone] [facility] PT ED HNO ID: [id number] thor: Macie Cruz (Pharmacist)Service: PharmacyAuthor Type: PharmacistType: Patient EducationFiled: 10/07/2017 2:11 PMNote Text:Clinical Pharmacy ServicesHigh Risk: Daily Medication AssessmentPatient Name: Rocio JacksonN: [id number] Date: 09/30/2017Service Date and Time: 10/07/2017 2:10 PMNew MedicationsThe following medications have been started since last pharmacy review:dextrose, glucagon, erythromycin, fentanyl, heparinMedication education has been completed: YesSignature: Macie Cruz PharmacistFairview: [phone]: [phone] Normal [facility] Phosphoruson 10-07-2017 Phosphate 3.0 mg/dL Normal 2.5-4.5 [facility] Comment on above: Performed By: #### P T, PTT, AMYL, CMP, LIPA, PHOS ####[facility] [place], [place] [phone]#### TRANSF ####[facility] [address] [place], [place] [phone] THERAPY NTon 10-07-2017 THERAPY NT HNO ID: [id number] thor: Adela Holcomb) Carlin: Physical TherapyAuthor Type: Physical Therapy AssistantType: Therapy (PT/OT/Speech/Resp)Filed: 10/07/2017 11:18 AMNote Text: -Attestation signed by Tonia Schmitz at 10/07/2017 12:03 PMI reviewed and agree with the documentation corresponding to this therapyvisit.SIGNATURE: Tonia Schmitz, PTDATE: October 07, 2017TIME: 12:03 PM Ph ysical Therapy TreatmentSERVICE DATE: 10/07/2017SERVICE TIME: 1000 to 1025ROOM: [id number]/p [facility] Medical Centermanolo procedureRecommended Discharge Disposition: Home PTRecommended Discharge Disposition [...] sister present [facility] PT follow up. Pt [...] l symptoms and signs-otherInterventions Provided: Therapeutic Exercise (13385);Gait Training (61128)Therapeutic Exercise (42867) Treatment Minutes: 101 unitSkilled Intervention(s): Instruction in therapeutic exercise in sittingposition for B LE strengtheningVerbal and tactile cuing provided for performance and pace.Gait Training (08869) Treatment Minutes: 151 unitSkilled Intervention(s): Instruction in [...] mobility assessmentRelevant Past Medical History: HTN, DM, OR, richelle 08/11/17, ARF, refer tochart for full [...] has assist with all IADLs. Works in [employer]. Amb Ind.OBJECTIVE:Mini Cog Score: 1 (10/02/17 0820)CURRENT [...] RE: Adela Leong PTA PATIENT NAME: Rocio TorresdonnyDATE: October 07, 2017 : 11:15 AM PAGER/CONTACT #: [phone] [facility] XR ABD 2V SUPINE W UPR/DECUB [...] MACK MD on Oct 07 2017 1:03PM [id number] [facility] XR CHEST 1V FRONTALon 2017 XR [...] silhouette: Normal cardiomediastinal silhouette.Other: .IMPRESSION:No acute radiographic abnormality.Global Marketing Specialist : PSCB Transcribe Date/Time: Oct 07 2017 12:50PDictated by : RENATE MACK MDThimilly examination was interpreted and the report reviewed and electronically signed by: RENATE MACK MD on Oct 07 2017 1:02PM [id number] [facility] ALLIED HEALTHon 10-06-2017 ALLIED HEALTH HNO ID: [id number] thor: Sally Santoyo (Rt)e: RadiologyAuthor Type: TechnicianType: Allied HealthFiled: 10/06/2017 6:41 AMNote Text: Radiology Service Progress NotePATIENT NAME: Rocio JacksonN: [id number] OF SERVICE: October 06, 2017TIME: 6:34 AMPATIENT IDENTITY VERIFICATION COMPLETED USING TWO (2) METHODS: Patientconfirmed name verbally and ID band matches..PATIENT GENDER DATA: MalePATIENT RELEVANT IMPLANT DATA REVIEWED: Not ApplicableRADIOLOGY DEPARTMENT: General X-ray: Exam(s) Completed: Abdomen X-RayAbdomenPERIPHERAL IV DATA: Not applicableSIGNED BY: Quique Santoyo 2017 6:41 AM [facility] CASE MANAGEMon 10-06-2017 CASE MANAGEM HNO ID: [id number] thor: Norberto Mena (Sw): Care ManagementAuthor Type: Social WorkerType: Care Mgt Progress NoteFiled: 10/06/2017 12:29 PMNote Text:MULTIDISCIPLINARY ROUNDSSERVICE DATE: 10/06/2017 ADMISSION DATE: 09/30/2017SERVICE TIME: 12:27 PM ANTICIPATED D/C DATE: 10/07/2017Problem List:ACTIVE PROBLEM LISTDuodenal ObstructionSevere Protein-Calorie Malnutrition (Hcc)Duodenal Cancer (Hcc)Attendees Present at Rounds:Pit Worker Power Shovel:Nurse Pattern Cutter/Slab Polisher Nurse Pattern Cutter:Plant Anatomy Teacher:Staff Nurse:Needs Discussed on Rounds:Discharge NeedsAnticipated Discharge Disposition:Home [...] October 06, 2017 : 12:27 PM CSN: [id number] Normal [facility] CBC and Differentialon 10-06 Abs Baso <0.03 Normal <0.11 [facility] Comment on above: Performed By: #### P T, PTT, AMYL, CMP, LIPA, PHOS ####[place] [address]#### TRANSF ####[place] [address] Abs Mcduffie 0.46 k/uL Normal <0.87 [facility] Comment on above: Performed By: #### P T, PTT, AMYL, CMP, LIPA, PHOS ####[place] [address]#### TRANSF ####[place] [address] Abs Neut 4.56 k/uL Normal 1.45-7.50 [facility] Comment on above: Performed By: #### P T, PTT, AMYL, CMP, LIPA, PHOS ####[place] [address]#### TRANSF ####[place] [address] Basophils/100 WBC Auto (Bld) 0.1 % Normal [facility] Comment on above: Performed By: #### P T, PTT, AMYL, CMP, LIPA, PHOS ####[place] [address]#### TRANSF ####[place] [address] [place] AvDerek [place] [phone] DTYPE Auto Diff Normal [facility] Comment on above: Performed By: #### P T, PTT, AMYL, CMP, LIPA, PHOS ####[place] [address]#### TRANSF ####[place] [address] Eosinophils 0.03 10*3/uL Normal <0.46 [facility] Comment on above: Performed By: #### P T, PTT, AMYL, CMP, LIPA, PHOS ####[place] [address]#### TRANSF ####[address] AvDerek V[place] [address] Eosinophils/100 leukocytes 0.4 % Normal [facility] Comment on above: Performed By: #### P T, PTT, AMYL, CMP, LIPA, PHOS ####[place] [address]#### TRANSF ####[place] [address] [place] AvDe[address] [place] [address] Erythrocyte distribution width Auto Ratio (RBC) 16.5 % High 11.5-15.0 [facility] Comment on above: Performed By: #### P T, PTT, AMYL, CMP, LIPA, PHOS ####[place] [address]#### TRANSF ####[address] AveCAshley [place] [address] Erythrocytes (RBC) 3.91 10*6/uL Low 4.20-6.00 [facility] Comment on above: Performed By: #### P T, PTT, AMYL, CMP, LIPA, PHOS ####[address]#### TRANSF ####[place] [phone] Hematocrit (HCT) 31.3 % Low 39.0-51.0 [facility] Comment on above: Performed By: #### P T, PTT, AMYL, CMP, LIPA, PHOS ####[place] [address]#### TRANSF ####[place] [phone] Hemoglobin mass conc (Bld) 10.0 g/dL Low 13.0-17.0 [facility] Comment on above: Performed By: #### P T, PTT, AMYL, CMP, LIPA, PHOS ####[address]#### TRANSF ####[phone] Lymphocytes 1.97 10*3/uL Normal 1.00-4.00 [facility] Comment on above: Performed By: #### P T, PTT, AMYL, CMP, LIPA, PHOS ####[place] [address]#### TRANSF ####[place] [address] Lymphocytes/100 leukocytes 28.0 % Normal [facility] Comment on above: Performed By: #### P T, PTT, AMYL, CMP, LIPA, PHOS ####[address]#### TRANSF ####[address]rek [place] [address] MCH 25.6 pG Low 26.0-34.0 [facility] Comment on above: Performed By: #### P T, PTT, AMYL, CMP, LIPA, PHOS ####[place] [address]#### TRANSF ####[place] [address] MCHC mass conc (RBC) 31.9 g/dL Normal 30.5-36.0 [facility] Comment on above: Performed By: #### P T, PTT, AMYL, CMP, LIPA, PHOS ####[place] [address]#### TRANSF ####[place] [address] MCV 80.1 fL Normal 80.0-100.0 [facility] Comment on above: Performed By: #### P T, PTT, AMYL, CMP, LIPA, PHOS ####[place] [address]#### TRANSF ####[place] [address] Monocytes/100 leukocytes 6.5 % Normal [facility] Comment on above: Performed By: #### P T, PTT, AMYL, CMP, LIPA, PHOS ####[place] [address]#### TRANSF ####[place] [address] Neutrophils/100 WBC Auto (Bld) 65.0 % Normal [facility] Comment on above: Performed By: #### P T, PTT, AMYL, CMP, LIPA, PHOS ####[place] [address]#### TRANSF ####[address] [phone] Platelet mean volume (PMV) 9.2 fL Normal 9.0-12.7 [facility] Comment on above: Performed By: #### P T, PTT, AMYL, CMP, LIPA, PHOS ####[place] [address]#### TRANSF ####[place] [address] Platelets 358 10*3/uL Normal 150-400 [facility] Comment on above: Performed By: #### P T, PTT, AMYL, CMP, LIPA, PHOS ####[place] [address]#### TRANSF ####[phone] WBC (Leukocytes) 7.03 10*3/uL Normal 3.70-11.00 [facility] Comment on above: Performed By: #### P T, PTT, AMYL, CMP, LIPA, PHOS ####[place] [address]#### TRANSF ####[place] [phone] CONSULT PROGon 10-06-2017 CONSULT PROG HNO ID: [id number] thor: Damaris Rojasice: EndocrinologyAuthor Type: PhysicianType: Consult Progress NoteFiled: 10/06/2017 5:16 PMNote Text:ENDOCRINOLOGY PROGRESS NOTEPATIENT NAME: Rocio JacksonMRN: [id number] DATE: 10/06/2017SERVICE TIME: 5:07 PMREASON FOR CONSULT: [...] with pRBC on 10/02/2017 so obtaining a QqX1gaxn will not be helpful. Low dose Lantus was started yesterday. Bloodglucose in the 200 mg/dL range today. Patient is sleeping when I visithim today with family by bedside.PAST MEDICAL HISTORYDiagnosis Date- Bleeding ulcer 11/15/2016 required 5 blood transfusions- Diabetes mellitus (HCC) 2017- Glaucoma- Hypertension- Myocardial infarction (HCC) 05/15/2011PAST SURGICAL HISTORYProcedure Laterality Date- ANGIOPLASTY HX 05/15/2011 2 stents s/p OR;[facility]- CHOLECYSTECTOMY 08/11/2017 [facility]- PICC LINE INSERT/CONSULT 08/16/2017No family history [...] PRN Yrn Cedillo)Gonzalo 5 mg at 10/05/17 7940xrbnmm-tqufpvzq-nupearj 2 capsule cap(s) (CREON 24) 2 capsule ORAL TID wMEALS Flynn (Res) MD Jane 2 capsule at 10/04/17 1740phenol 1 Candor (CHLORASEPTIC) 1 Candor MUCOUS MEMBRANE (TOPICAL MOUTH ANDTHROAT) q 2 H PRN Kolby (Res) Kevin 1 Candor at 10/02/17 83887.9% NaCl 2-10 mL 2-10 mL INTRAVENOUS q 12 H Mundo (Res)(Hist) Yzacssu54 mL at 10/06/17 0842naloxone 0.2 mg injection [...] lb 12.3 oz) SpO2 96% BMI 29.77 kg/w9Eujekla: Well appearing, sleeping, in no acute distress.Skin: [...] 212 (A) 21/04/2018 12:12 PM 237 (A) J4Xxxqlmifm Latest Ref Rng AND Units 10/06/2017 5:51 [...] MDDATE: October 06, 2017TIME: 5:07 PM Normal [facility] Comp Metabolic Panelon 10-06 Alanine aminotransferase (ALT) 28 U/L Normal 5-50 [facility] Comment on above: Performed By: #### P T, PTT, AMYL, CMP, LIPA, PHOS ####[place] [address]#### TRANSF ####[place] [address] Albumin 3.4 g/dL Low 3.5-5.0 [facility] Comment on above: Performed By: #### P T, PTT, AMYL, CMP, LIPA, PHOS ####[place] [address]#### TRANSF ####[place] [address] Alkaline phosphatase (ALP) 108 U/L Normal 40-150 [facility] Comment on above: Performed By: #### P T, PTT, AMYL, CMP, LIPA, PHOS ####[place] [address]#### TRANSF ####[place] [address] Anion gap 16 mmol/L Normal 9-18 [facility] Comment on above: Performed By: #### P T, PTT, AMYL, CMP, LIPA, PHOS ####[place] [address]#### TRANSF ####[place] [address] Aspartate aminotransferase (AST) 23 U/L Normal 7-40 [facility] Comment on above: Performed By: #### P T, PTT, AMYL, CMP, LIPA, PHOS ####[place] [address]#### TRANSF ####[place] [address] Bilirubin (total) 0.2 mg/dL Normal 0.0-1.5 [facility] Comment on above: Performed By: #### P T, PTT, AMYL, CMP, LIPA, PHOS ####[place] [address]#### TRANSF ####[place] [address] Calcium 9.2 mg/dL Normal 8.5-10.5 [facility] Comment on above: Performed By: #### P T, PTT, AMYL, CMP, LIPA, PHOS ####[place] [address]#### TRANSF ####[place] [address] Chloride 103 mmol/L Normal 98-110 [facility] Comment on above: Performed By: #### P T, PTT, AMYL, CMP, LIPA, PHOS ####[place] [address]#### TRANSF ####[place] [address] [address] [place] [address] CO2 24 mmol/L Normal 23-32 [facility] Comment on above: Performed By: #### P T, PTT, AMYL, CMP, LIPA, PHOS ####[place] [address]796[address]#### TRANSF ####[place] [address] Creatinine 0.54 mg/dL Low 0.70-1.40 [facility] Comment on above: Performed By: #### P T, PTT, AMYL, CMP, LIPA, PHOS ####[place] [address]#### TRANSF ####[place] [address] eGFR (non-black) mL/min/{1.73_m2} Normal >60 [facility] Comment on above: Performed By: #### P T, PTT, AMYL, CMP, LIPA, PHOS ####[place] [address]#### TRANSF ####[place] [address] Glucose mass conc 208 mg/dL High 65-100 [facility] Comment on above: Performed By: #### P T, PTT, AMYL, CMP, LIPA, PHOS ####[place] [address]796[address]#### TRANSF ####[place] [address] Potassium molar conc 4.3 mmol/L Normal 3.5-5.0 [facility] Comment on above: Performed By: #### P T, PTT, AMYL, CMP, LIPA, PHOS ####[place] [phone]#### TRANSF ####[place] [address] Protein 7.3 g/dL Normal 6.0-8.4 [facility] Comment on above: Performed By: #### P T, PTT, AMYL, CMP, LIPA, PHOS ####[place] [address]#### TRANSF ####[place] [address] Sodium 143 mmol/L Normal 135-146 [facility] Comment on above: Performed By: #### P T, PTT, AMYL, CMP, LIPA, PHOS ####[place] [address]#### TRANSF ####[place] [address] Urea nitrogen 16 mg/dL Normal 10-25 [facility] Comment on above: Performed By: #### P T, PTT, AMYL, CMP, LIPA, PHOS ####[place] [address]#### TRANSF ####[place] [address] Magnesiumon 10-06-2017 Magnesium 2.0 mg/dL Normal 1.7-2.6 [facility] Comment on above: Performed By: #### P T, PTT, AMYL, CMP, LIPA, PHOS ####[place] [address]#### TRANSF ####[place] [address] NURSING PROGon 10-06-2017 NURSING PROG HNO ID: [id number] thor: Pramod (Rn) MOUSTAPHA Mckennaervice: (none)Author Type: Registered NurseType: Nursing Progress NoteFiled: 10/06/2017 6:57 PMNote Text: Nursing Progress NotePatient Name: Rocio HayesN: [id number] Location: [place] [address]/KV-[id number]-26 ____Daily Note:10/06/17 0800 (late entry)- Patient is [...] to 40/hr at approximately to possibly assisted volodymyr; SAIMA Galeas, is aware. Call light and belongings are withinreach.This note was completed by: Pramod Mckenna RN [facility] NURSING PROG HNO ID: [id number] thor: Jennifer Humphries (Rn) MOUSTAPHA Websterervice: (none)Author Type: Registered NurseType: Nursing Progress NoteFiled: 10/06/2017 6:15 AMNote Text: Nursing Progress NotePatient Name: Rocio JacksonMRN: [id number] Location: [place] [address]/FW-EE3X-35 ____ Text page sent to surgical garment assembly supervisor to notify again that pt had [id number] emesis of bile (no tube feed color in any emesis tonight).This note was completed by: Jennifer Webster RN [facility] NURSING PROG HNO ID: [id number] thor: Jennifer Humphries (Rn) Eleanor, RNService: (none)Author Type: Registered NurseType: Nursing Progress NoteFiled: 10/06/2017 3:17 AMNote Text: Nursing Progress NotePatient Name: Rocio JacksonMRN: [id number] Location: [place] [address]/QE-[id number] ____ Pt with two episodes of emesis [...] note was completed by: Jennifer Webster RN [facility] NUTRITIONon 10-06-2017 NUTRITION HNO ID: [id number] thor: Alise Segura) BlayneaService: Nutrition TherapyAuthor Type: [...] History: nausea, emesis - 350 ml - 10/06 amPresent Diet Order: Clear Liquid and TFNutritional [...] 81 kgResting Metabolic Rate: 1599Estimated kilocalorie needs: 6235-0867 kilocalories determined by 20-25kcal/kgEstimated protein needs: 105-138 grams determined by 1.3-1.7 g/kg DosingweightEstimated fluid needs: 8493-3446 milliliters based on 1 mL per kcalNUTRITION [...] lb 12.3 oz) SpO2 96% BMI 29.77 kg/i5Trcqvr Labs GLUC 208*BUN 16CREAT 0.54*NA 143K 4.3CHLOR [...] (ROXICODONE) 5 mg ORAL q 4 H YEXwwdsmy-fpzebuxb-wemgjax 2 capsule cap(s) (CREON 24) 2 capsule ORAL TID wMEALSphenol 1 Candor (CHLORASEPTIC) 1 Candor MUCOUS MEMBRANE (TOPICAL MOUTH ANDTHROAT) q 2 [...] PRNIntake/Output 10/02/17 0700 - 10/03/17 0659 10/03/17 0700 - 10/04/17 0659 700 - 10/05/17 0659 10/05/17 0700 - 10/06/17 [...] assistance and weekends please page theGroup Pager [phone] [facility] PROGRESSon 10-06-2017 PROGRESS HNO ID: [id number] thor: Michael Cedillo) AugustinService: General SurgeryAuthor Type: PhysicianType: Progress NotesFiled: 10/06/2017 6:29 PMNote Text:SURGICAL SERVICES PROGRESS NOTENAME: Rocio JacksonMRN: [id number]: 10/06/2017Time: 10:09 JUDIE DATE: 09/30/20175 Days Post-OpProcedure(s) [...] on POD 3 nml, removed. Transferred to [facility]?Large volume of emesis past 24 hours [...] ac/hsfor DGE- IPCs, SQH- Continue care on [facility]; will begin disposition planning todaySubjective:AFVSSBilious emesis overnight (2L past 24 hours)No evidence of TF in emesis per nursingBM x4 recordedPHYSICAL EXAM:GENERAL: no acute distressABDOMEN: soft, nontender, mildly distended. Incision c/d/i. [place] drainingyellow-red urine.BP 147/86 Pulse 90 Temp 37.1 ?C (98.7 ?F) (Oral) Resp 17 Ht 172.7cm (5' 7.99 ) Wt 88.8 kg (195 lb 12.3 oz) SpO2 96% BMI 29.77 kg/m2Aabyft/Output Summary (Last 24 hours) at 10/06/17 1008Last [...] in this interval not displayed.CoagsRecent Labs 805 08/17/1807464434ACIQ 25.9 24.9 -- -- 39.8* 31.6INR 1.2 1.1 1.0 2.0* 2.0* 1.5*Imaging:KUB (10/05/17):IMPRESSION:No dilated loops of bowel. ?Postsurgical changes.Salvador Birmingham, MDResident General Surgery Normal [facility] Phosphoruson 10-06-2017 Phosphate 3.2 mg/dL Normal 2.5-4.5 [facility] Comment on above: Performed By: #### P T, PTT, AMYL, CMP, LIPA, PHOS ####[facility] [place] [phone]#### TRANSF ####[facility] [address] [place], [place] [phone] XR ABDOMEN 1V SPECIFYon 09-27 XR ABDOMEN [...] indeterminate etiology.IMPRESSION:No dilated loops of bowel. Postsurgical changes.Global Marketing Specialist: NII Transcribe Date/Time: Oct 06 2017 6:41ADictated by : MELCHOR OSBORN MDThis examination was interpreted and the report reviewed and electronically signed by: MELCHOR OSBORN MD on Oct 06 2017 6:45AM [id number] Normal [facility] CBC and Differentialon 10-05 Abs Baso <0.03 Normal <0.11 [facility] Comment on above: Performed By: #### P T, PTT, AMYL, CMP, LIPA, PHOS ####[place] [address]#### TRANSF ####[place] [address] Abs Mcduffie 0.47 k/uL Normal <0.87 [facility] Comment on above: Performed By: #### P T, PTT, AMYL, CMP, LIPA, PHOS ####[place] [address]#### TRANSF ####[place] [address] Abs Neut 3.08 k/uL Normal 1.45-7.50 [facility] Comment on above: Performed By: #### P T, PTT, AMYL, CMP, LIPA, PHOS ####[place] [address]#### TRANSF ####[place] [address] Basophils/100 WBC Auto (Bld) 0.2 % [facility] Comment on above: Performed By: #### P T, PTT, AMYL, CMP, LIPA, PHOS ####[place] [address]#### TRANSF ####[place] [address] DTYPE Auto Diff Normal [facility] Comment on above: Performed By: #### P T, PTT, AMYL, CMP, LIPA, PHOS ####[place] [address]#### TRANSF ####[place] [address] Eosinophils 0.23 10*3/uL Normal <0.46 [facility] Comment on above: Performed By: #### P T, PTT, AMYL, CMP, LIPA, PHOS ####[place] [address]#### TRANSF ####[place] [address] Eosinophils/100 leukocytes 4.1 % Normal [facility] Comment on above: Performed By: #### P T, PTT, AMYL, CMP, LIPA, PHOS ####[place] [address]#### TRANSF ####[place] [address] Erythrocyte distribution width Auto Ratio (RBC) 16.3 % High 11.5-15.0 [facility] Comment on above: Performed By: #### P T, PTT, AMYL, CMP, LIPA, PHOS ####[place] [address]#### TRANSF ####[place] [address] Erythrocytes (RBC) 4.00 10*6/uL Low 4.20-6.00 [facility] Comment on above: Performed By: #### P T, PTT, AMYL, CMP, LIPA, PHOS ####[place] [address]#### TRANSF ####[place] [address] Hematocrit (HCT) 32.0 % Low 39.0-51.0 [facility] Comment on above: Performed By: #### P T, PTT, AMYL, CMP, LIPA, PHOS ####[place] [phone]#### TRANSF ####[place] [address] Hemoglobin mass conc (Bld) 10.2 g/dL Low 13.0-17.0 [facility] Comment on above: Performed By: #### P T, PTT, AMYL, CMP, LIPA, PHOS ####[place] [address]#### TRANSF ####[place] [address] Lymphocytes 1.82 10*3/uL Normal 1.00-4.00 [facility] Comment on above: Performed By: #### P T, PTT, AMYL, CMP, LIPA, PHOS ####[place] [address]#### TRANSF ####[place] [address] Lymphocytes/100 leukocytes 32.4 % Normal [facility] Comment on above: Performed By: #### P T, PTT, AMYL, CMP, LIPA, PHOS ####[place] [address]#### TRANSF ####[place] [address] MCH 25.5 pG Low 26.0-34.0 [facility] Comment on above: Performed By: #### P T, PTT, AMYL, CMP, LIPA, PHOS ####[place] [address]#### TRANSF ####[place] [address] MCHC mass conc (RBC) 31.9 g/dL Normal 30.5-36.0 [facility] Comment on above: Performed By: #### P T, PTT, AMYL, CMP, LIPA, PHOS ####[place] [address]#### TRANSF ####[phone] MCV 80.0 fL Normal 80.0-100.0 [facility] Comment on above: Performed By: #### P T, PTT, AMYL, CMP, LIPA, PHOS ####[place] [address]#### TRANSF ####[place] [address] Monocytes/100 leukocytes 8.4 % Normal [facility] Comment on above: Performed By: #### P T, PTT, AMYL, CMP, LIPA, PHOS ####[place] [address]#### TRANSF ####[place] [address] Neutrophils/100 WBC Auto (Bld) 54.9 % Normal [facility] Comment on above: Performed By: #### P T, PTT, AMYL, CMP, LIPA, PHOS ####[place] [address]#### TRANSF ####[place] [address] Platelet mean volume (PMV) 9.3 fL Normal 9.0-12.7 [facility] Comment on above: Performed By: #### P T, PTT, AMYL, CMP, LIPA, PHOS ####[place] [address]#### TRANSF ####[place] [address] Platelets 314 10*3/uL Normal 150-400 [facility] Comment on above: Performed By: #### P T, PTT, AMYL, CMP, LIPA, PHOS ####[facility] [place], [place] [phone]#### TRANSF ####[facility] [place], [place] [phone] WBC (Leukocytes) 5.61 10*3/uL Normal 3.70-11.00 [facility] Comment on above: Performed By: #### P T, PTT, AMYL, CMP, LIPA, PHOS ####[place] [address] [place], [place] [phone]#### TRANSF ####[facility] [place], [place] [phone] CONSULTon 10-05-2017 CONSULT HNO ID: [id number] thor: Damaris Formanervice: EndocrinologyAuthor Type: PhysicianType: ConsultsFiled: 10/05/2017 6:01 PMNote Text:ENDOCRINOLOGY INITIAL CONSULTPATIENT NAME: Rocio JacksonMRN: [id number] DATE: 10/05/2017SERVICE TIME: 5:01 PMREASON FOR CONSULT: DM Type 2REQUESTING PHYSICIAN:Michael Jolley [facility] PHYSICIAN: Adriane Nichols, DOSubjectiveHISTORY OF PRESENT ILLNESS: [...] sees primary caredoctor for DM management in [facility]. He was on oral agentssaxagliptin 5 [...] Date- ANGIOPLASTY HX 05/15/2011 2 stents s/p OR;[facility]- CHOLECYSTECTOMY 08/11/2017 [facility]- PICC LINE INSERT/CONSULT 08/16/2017No family history [...] PRN Yrn Cedillo)Gonzalo 5 mg at 10/05/17 7014dyaiir-awnjrgvt-nqndgvk 2 capsule cap(s) (CREON 24) 2 capsule ORAL TID EALMilly Pruett (Res) MD Jane 2 capsule at 10/04/17 1740phenol 1 Candor (CHLORASEPTIC) 1 Candor MUCOUS MEMBRANE (TOPICAL MOUTH ANDTHROAT) q 2 H PRN Kolby (Res) Kevin 1 Candor at 10/02/17 24898.9% NaCl 2-10 mL 2-10 mL INTRAVENOUS q 12 H Antonios (Res)(Hist) Sideris5 mL at 10/05/17 0805naloxone 0.2 mg injection (NARCAN) 0.2 mg INTRAVENOUS PRN Yrn Cedillo)Leodangaraspirin, enteric coated 162 mg tab(s) (ASPIRIN, ENTERIC COATED) 162 mgORAL DAILY Antonios (Res)(Hist) Sideris 162 mg at 10/03/17 0828nitroglycerin [...] lb 12.3 oz) SpO2 96% BMI 29.77 kg/z2Zxejwzn: Fatigued appearing, alert, in no acute distress, [...] PM 120 (A)10/01/2017 11:48 PM 122 (A) 10/12/2017 5:53 AM 147 (A)10/02/2017 11:40 AM 176 (A) 10/12/2017 6:11 PM 150 (A)10/03/2017 1:35 AM 129 (A)10/03/2017 6:24 AM 144 (A)10/03/2017 12:05 PM 230 (A) 19/01/2018 5:34 PM 203 (A) 19/01/2018 11:57 PM 133 (A)10/04/2017 6:32 AM 153 (A) 09/02/2018 11:59 AM 183 (A) 09/02/2018 5:21 PM 158 (A) H110/04/2017 11:12 PM 149 (A)10/05/2017 5:35 AM 176 (A) H110/05/2017 12:04 PM 184 (A) H1 5:29 PM [...] hours-clear liquid diet-glucose monitoring every 6 hourswill followASHLEY العراقيIGNATURE: Damaris Aguilar, MDDATE: October 05, 2017TIME: 5:01 PM Normal [facility] Comp Metabolic Panelon 10-05 Alanine aminotransferase (ALT) 27 U/L Normal 5-50 [facility] Comment on above: Performed By: #### P T, PTT, AMYL, CMP, LIPA, PHOS ####[place] [phone]#### TRANSF ####[facility] [address] [place], [place] [phone] Albumin 3.3 g/dL Low 3.5-5.0 [facility] Comment on above: Result Comment: Revi ewed Performed By: #### P T, PTT, AMYL, CMP, LIPA, PHOS ####[address] [phone]#### TRANSF ####[facility] [address] [place], [place] [phone] Alkaline phosphatase (ALP) 107 U/L Normal 40-150 [facility] Comment on above: Performed By: #### P T, PTT, AMYL, CMP, LIPA, PHOS ####[place] [address]#### TRANSF ####[place] [address] Anion gap 12 mmol/L Normal 9-18 [facility] Comment on above: Performed By: #### P T, PTT, AMYL, CMP, LIPA, PHOS ####[place] [address]#### TRANSF ####[place] [address] Aspartate aminotransferase (AST) 23 U/L Normal 7-40 [facility] Comment on above: Performed By: #### P T, PTT, AMYL, CMP, LIPA, PHOS ####[place] [address]#### TRANSF ####[place] [address] Bilirubin (total) 0.2 mg/dL Normal 0.0-1.5 [facility] Comment on above: Performed By: #### P T, PTT, AMYL, CMP, LIPA, PHOS ####[place] [address]#### TRANSF ####[place] [address] Calcium 8.9 mg/dL Normal 8.5-10.5 [facility] Comment on above: Performed By: #### P T, PTT, AMYL, CMP, LIPA, PHOS ####[place] [address]#### TRANSF ####[place] [address] Chloride 103 mmol/L Normal 98-110 [facility] Comment on above: Performed By: #### P T, PTT, AMYL, CMP, LIPA, PHOS ####[place] [address]#### TRANSF ####[place] [address] CO2 27 mmol/L Normal 23-32 [facility] Comment on above: Performed By: #### P T, PTT, AMYL, CMP, LIPA, PHOS ####[place] [address]#### TRANSF ####[place] [address] Creatinine 0.56 mg/dL Low 0.70-1.40 [facility] Comment on above: Performed By: #### P T, PTT, AMYL, CMP, LIPA, PHOS ####[place] [address]#### TRANSF ####[place] [address] eGFR (non-black) mL/min/{1.73_m2} Normal >60 [facility] Comment on above: Performed By: #### P T, PTT, AMYL, CMP, LIPA, PHOS ####[place] [address]#### TRANSF ####[place] [address] Glucose mass conc 172 mg/dL High 65-100 [facility] Comment on above: Performed By: #### P T, PTT, AMYL, CMP, LIPA, PHOS ####[address]#### TRANSF ####[phone] Potassium molar conc 4.6 mmol/L Normal 3.5-5.0 [facility] Comment on above: Performed By: #### P T, PTT, AMYL, CMP, LIPA, PHOS ####[place] [address]#### TRANSF ####[place] [address] Protein 6.5 g/dL Normal 6.0-8.4 [facility] Comment on above: Performed By: #### P T, PTT, AMYL, CMP, LIPA, PHOS ####[place] [address]#### TRANSF ####[place] [address] Sodium 142 mmol/L Normal 135-146 [facility] Comment on above: Performed By: #### P T, PTT, AMYL, CMP, LIPA, PHOS ####[place] [address]#### TRANSF ####[place] [address] Urea nitrogen 14 mg/dL Normal 10-25 [facility] Comment on above: Performed By: #### P T, PTT, AMYL, CMP, LIPA, PHOS ####[place] [address]#### TRANSF ####[place] [address] Magnesiumon 10-05-2017 Magnesium 2.1 mg/dL Normal 1.7-2.6 [facility] Comment on above: Performed By: #### P T, PTT, AMYL, CMP, LIPA, PHOS ####[place] [address]#### TRANSF ####[address], [place] [phone] NURSING PROGon 10-05-2017 NURSING PROG HNO ID: [id number] thor: Saima Kramer (Rn) Debra, RNService: (none)Author Type: Registered NurseType: Nursing Progress NoteFiled: 10/05/2017 3:52 PMNote Text: Nursing Progress NotePatient Name: Rocio HayesN: [id number] Location: [place] [id number] ____Daily Note:Pt sitting on edge of bed [...] make aware.This note was completed by: Saima Richardson, RN [facility] PROGRESSon 10-05-2017 PROGRESS HNO ID: [id number] thor: Michael Cedillo) AugustinService: General SurgeryAuthor Type: PhysicianType: Progress NotesFiled: 10/05/2017 6:45 PMNote Text:SURGICAL SERVICES PROGRESS NOTENAME: Rocio JacksonPETRONA: [id number]: 10/05/2017Time: 7:15 JUDIE DATE: 09/30/20175 Days Post-OpProcedure(s) [...] 10/05/17 0659 10/05/17 07 - 10/06/17 0659Shift 7265-5418 4360-0208 6493-7389 24 Hour Total 1996-2147 [id number] 24 Hour TotalINTAKE PO 770 5140 769 0833 PO 349 359 4456 Tube Feed Intake (GI Feed/Drain 09/30/17 Small Bore Feeding Right Naris10 Fr) 240 245 461 0103 Irrigants 5 115 180 300 Irrigant/Flush Amount In (Drain/Tube 08/27/17 Admission to HospitalRight Upper Quadrant Abdomen Drain #3) 5 5 10 Irrigant/Flush Amount In (GI Feed/Drain 09/30/17 Small Bore FeedingRight Naris 10 Fr) 110 180 290 Shift Total 775 1285 718 2778OUTPUT Urine 678 184 3985 3075 Void (ml) 525 1850 2375 Tube [...] x 1 x 5 x Shift Total 662 537 9362 3425Weight (kg) 88.8 88.8 88.8 88.8 88.8 88.8 88.8 88.8DIAGNOSTIC STUDIES:CBC:Hemoglobin (g/dL)Date Value10/05/2017 10.2 Hematocrit (%)Date Value10/05/2017 32.0 WBC (k/uL)Date Value10/05/2017 5.61 Platelet Count (k/uL)Date Value10/05/2017 314 CMP:BMP:Glucose 172 10/05/2017BUN 14 10/05/2017Creatinine 0.56 10/05/2017Sodium 142 10/05/2017Potassium 4.6 10/05/2017Chloride 103 10/05/2017CO2 27 10/05/2017Protein, Total 6.5 10/05/2017Albumin 3.3 10/05/2017Calcium 8.9 10/05/2017Alkaline Phosphatase 107 10/05/2017Bilirubin, Total 0.2 10/05/2017AST 23 10/05/2017ALT 27 10/05/2017MATI Mejia II general surgeryPager [phone] - 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Pager [phone] - PersonalSTAFF NOTEI have independently seen and examined the patient today. I haveindependently reviewed all the imaging and the labs. I agree with keycomponents of the resident's note above. Care plan and decision making hasbeen discussed.Doing well, continued DGETolerating tube feedsClearsToms MD Froilan, MPH, FACSGeneral/Trauma/HPB SurgeryPager: [phone] Cell: [id number] 2017 Normal [facility] Phosphoruson 10-05-2017 Phosphate 3.6 mg/dL Normal 2.5-4.5 [facility] Comment on above: Performed By: #### P T, PTT, AMYL, CMP, LIPA, PHOS ####[place] [address]#### TRANSF ####[place] [phone] CBC and Differentialon 10-04 Abs Baso <0.03 Normal <0.11 [facility] Comment on above: Performed By: #### P T, PTT, AMYL, CMP, LIPA, PHOS ####[place] [address]#### TRANSF ####[place] [address] Abs Mcduffie 0.32 k/uL Normal <0.87 [facility] Comment on above: Performed By: #### P T, PTT, AMYL, CMP, LIPA, PHOS ####[place] [address]#### TRANSF ####[place] [address] Abs Neut 2.35 k/uL Normal 1.45-7.50 [facility] Comment on above: Performed By: #### P T, PTT, AMYL, CMP, LIPA, PHOS ####[place] [address]#### TRANSF ####[place] [address] Basophils/100 WBC Auto (Bld) 0.2 % Normal [facility] Comment on above: Performed By: #### P T, PTT, AMYL, CMP, LIPA, PHOS ####[place] [address]#### TRANSF ####[address] [phone] DTYPE Auto Diff Normal [facility] Comment on above: Performed By: #### P T, PTT, AMYL, CMP, LIPA, PHOS ####[place] [address]#### TRANSF ####[place] [address] Eosinophils 0.25 10*3/uL Normal <0.46 [facility] Comment on above: Performed By: #### P T, PTT, AMYL, CMP, LIPA, PHOS ####[place] [address]#### TRANSF ####[place] [address] Eosinophils/100 leukocytes 6.0 % Normal [facility] Comment on above: Performed By: #### P T, PTT, AMYL, CMP, LIPA, PHOS ####[place] [address]#### TRANSF ####[place] [address] Erythrocyte distribution width Auto Ratio (RBC) 16.3 % High 11.5-15.0 [facility] Comment on above: Performed By: #### P T, PTT, AMYL, CMP, LIPA, PHOS ####[place] [address]#### TRANSF ####[place] [address] Erythrocytes (RBC) 3.42 10*6/uL Low 4.20-6.00 [facility] Comment on above: Performed By: #### P T, PTT, AMYL, CMP, LIPA, PHOS ####[place] [address]#### TRANSF ####[place] [address] Hematocrit (HCT) 27.0 % Low 39.0-51.0 [facility] Comment on above: Performed By: #### P T, PTT, AMYL, CMP, LIPA, PHOS ####[place] [address]#### TRANSF ####[place] [address] Hemoglobin mass conc (Bld) 8.7 g/dL Low 13.0-17.0 [facility] Comment on above: Performed By: #### P T, PTT, AMYL, CMP, LIPA, PHOS ####[place] [address]#### TRANSF ####[place] [address] Lymphocytes 1.27 10*3/uL Normal 1.00-4.00 [facility] Comment on above: Performed By: #### P T, PTT, AMYL, CMP, LIPA, PHOS ####[place] [address]#### TRANSF ####[place] [address] Lymphocytes/100 leukocytes 30.2 % Normal [facility] Comment on above: Performed By: #### P T, PTT, AMYL, CMP, LIPA, PHOS ####[place] [address]#### TRANSF ####[place] [address] MCH 25.4 pG Low 26.0-34.0 [facility] Comment on above: Performed By: #### P T, PTT, AMYL, CMP, LIPA, PHOS ####[place] [address]#### TRANSF ####[phone] MCHC mass conc (RBC) 32.2 g/dL Normal 30.5-36.0 [facility] Comment on above: Performed By: #### P T, PTT, AMYL, CMP, LIPA, PHOS ####[address]#### TRANSF ####[place] [address] MCV 78.9 fL Low 80.0-100.0 [facility] Comment on above: Performed By: #### P T, PTT, AMYL, CMP, LIPA, PHOS ####[address]#### TRANSF ####[place] [address] Monocytes/100 leukocytes 7.6 % Normal [facility] Comment on above: Performed By: #### P T, PTT, AMYL, CMP, LIPA, PHOS ####[address]#### TRANSF ####[place] [address] Neutrophils/100 WBC Auto (Bld) 56.0 % Normal [facility] Comment on above: Performed By: #### P T, PTT, AMYL, CMP, LIPA, PHOS ####[address]#### TRANSF ####[place] [address] Platelet mean volume (PMV) 9.2 fL Normal 9.0-12.7 [facility] Comment on above: Performed By: #### P T, PTT, AMYL, CMP, LIPA, PHOS ####[address]#### TRANSF ####[address] [phone] Platelets 246 10*3/uL Normal 150-400 [facility] Comment on above: Performed By: #### P T, PTT, AMYL, CMP, LIPA, PHOS ####[address] [phone]#### TRANSF ####[address] [phone] WBC (Leukocytes) 4.20 10*3/uL Normal 3.70-11.00 [facility] Comment on above: Performed By: #### P T, PTT, AMYL, CMP, LIPA, PHOS ####[address] [phone]#### TRANSF ####[address] [phone] CONSULT PROGon 10-04-2017 CONSULT PROG HNO ID: [id number] thor: Brock Yao: Pain ManagementAuthor Type: Physician AssistantType: Consult Progress NoteFiled: 10/04/2017 8:53 AMNote Text:PERIPHERAL NERVE CATHETER PROGRESS NOTEPATIENT NAME: Rocio JacksonMRN: [id number] DATE: 10/04/2017SERVICE TIME: 8:36 AMPRIMARY SERVICE:?General Surgery??ASSESSMENT [...] or warmth.No nausea or vomiting.Pain adequately controlled 3/10.?Patient given SQ Heparin 5000 units Q 12 [...] placed: Day of surgery??MEDICATIONS:??Epidu ral Medications and TYPEWRITER MECHANIC SettingsBupivacaine 0.1% + Dilaudid??Basal rate: 4?mL/hr.Patient Demand Bolus: 3?mL.Lockout interval: 4?minutesCurrent hospital medications:oxyCODONE IR 5 mg tab(s) (ROXICODONE) 5 mg ORAL q 4 H EQMhjzyzt-klfrqfur-hdrgjen 2 capsule cap(s) (CREON 24) 2 capsule ORAL TID wMEALSacetaminophen 650 mg tab(s) (TYLENOL) 650 mg ORAL q 6 Hdocusate sodium 100 mg cap(s) (COLACE) 100 mg ORAL BIDatorvastatin 40 mg tab(s) (LIPITOR) 40 mg ORAL/FEEDING TUBE AT BEDTIMEphenol 1 Candor (CHLORASEPTIC) 1 Candor MUCOUS MEMBRANE (TOPICAL MOUTH ANDTHROAT) q 2 [...] mg ORAL q 8 HHYDROmorphone 0.5 mg/mL TYPEWRITER MECHANIC CLINICIAN DOSE 0.2 mg 0.2 mg INTRAVENOUS [...] 2017 : 8:36 AM PAGER/CONTACT #: [place] [phone] Normal [facility] Comp Metabolic Panelon 10-04 Alanine aminotransferase (ALT) 23 U/L Normal 5-50 [facility] Comment on above: Performed By: #### P T, PTT, AMYL, CMP, LIPA, PHOS ####[place] [address]#### TRANSF ####[phone] Albumin 2.3 g/dL Low 3.5-5.0 [facility] Comment on above: Performed By: #### P T, PTT, AMYL, CMP, LIPA, PHOS ####[place] [address]#### TRANSF ####[phone] Alkaline phosphatase (ALP) 83 U/L Normal 40-150 [facility] Comment on above: Performed By: #### P T, PTT, AMYL, CMP, LIPA, PHOS ####[place] [address]#### TRANSF ####[phone] Anion gap 11 mmol/L Normal 9-18 [facility] Comment on above: Performed By: #### P T, PTT, AMYL, CMP, LIPA, PHOS ####[place] [address]#### TRANSF ####[place] [address] Aspartate aminotransferase (AST) 19 U/L Normal 7-40 [facility] Comment on above: Performed By: #### P T, PTT, AMYL, CMP, LIPA, PHOS ####[place] [address]#### TRANSF ####[place] [address] Bilirubin (total) 0.2 mg/dL Normal 0.0-1.5 [facility] Comment on above: Performed By: #### P T, PTT, AMYL, CMP, LIPA, PHOS ####[place] [address]#### TRANSF ####[place] [address] Calcium 8.1 mg/dL Low 8.5-10.5 [facility] Comment on above: Performed By: #### P T, PTT, AMYL, CMP, LIPA, PHOS ####[place] [address]#### TRANSF ####[place] [address] Chloride 103 mmol/L Normal 98-110 [facility] Comment on above: Performed By: #### P T, PTT, AMYL, CMP, LIPA, PHOS ####[place] [address]#### TRANSF ####[address] Av[address] [place] [phone] CO2 25 mmol/L Normal 23-32 [facility] Comment on above: Performed By: #### P T, PTT, AMYL, CMP, LIPA, PHOS ####[address]#### TRANSF ####[place] [address] Creatinine 0.54 mg/dL Low 0.70-1.40 [facility] Comment on above: Performed By: #### P T, PTT, AMYL, CMP, LIPA, PHOS ####[place] [address]#### TRANSF ####[place] [address] eGFR (non-black) mL/min/{1.73_m2} Normal >60 [facility] Comment on above: Performed By: #### P T, PTT, AMYL, CMP, LIPA, PHOS ####[place] [address]#### TRANSF ####[place] [address] Glucose mass conc 146 mg/dL High 65-100 [facility] Comment on above: Performed By: #### P T, PTT, AMYL, CMP, LIPA, PHOS ####[place] [address]#### TRANSF ####[place] [address]755 Potassium molar conc 4.0 mmol/L Normal 3.5-5.0 [facility] Comment on above: Performed By: #### P T, PTT, AMYL, CMP, LIPA, PHOS ####[address]#### TRANSF ####[place] [phone] Protein 5.6 g/dL Low 6.0-8.4 [facility] Comment on above: Performed By: #### P T, PTT, AMYL, CMP, LIPA, PHOS ####[place] [address]#### TRANSF ####[place] [id number] Sodium 139 mmol/L Normal 135-146 [facility] Comment on above: Performed By: #### P T, PTT, AMYL, CMP, LIPA, PHOS ####[place] [id number]#### TRANSF ####[place] [id number] Urea nitrogen 16 mg/dL Normal 10-25 [facility] Comment on above: Performed By: #### P T, PTT, AMYL, CMP, LIPA, PHOS ####[place] [id number]#### TRANSF ####[place] [id number] Magnesiumon 10-04-2017 Magnesium 1.8 mg/dL Normal 1.7-2.6 [employer] [employer] [facility] Comment on above: Performed By: #### P T, PTT, AMYL, CMP, LIPA, PHOS ####[place] [id number]#### TRANSF ####[place] [id number] NURSING PROGon 10-04-2017 NURSING PROG HNO ID: [id number] thor: Srinivasan (Rn) Bonnie, RNService: (none)Author Type: Registered NurseType: Nursing Progress NoteFiled: 10/05/2017 5:27 AMNote Text: Nursing Progress NotePatient Name: Rocio JacksonPETRONA: [id number] [id number] ____Daily Note:2049: Pt had one 50cc emesis. Medicated with Fdtadb1426: Pt reassessed. States nausea has subsided. Will continue to monitor.045: Pt had 300cc green emesis episode. Medicated with zofran. Text pagesent to SROC to make aware.0525: SROC returned called. team will be rounding soon. Willcontinue to monitor.This note was completed by: Srinivasan Nicole RN [facility] PROGRESSon 10-04-2017 PROGRESS HNO ID: [id number] thor: Mela Carroll: General SurgeryAuthor Type: PhysicianType: [...] lb 12.3 oz) SpO2 94% BMI 29.77 kg/k0UHOYZYQ: no acute distressABDOMEN: soft, nontender, mildly distended. [...] 0.5LACT -- -- -- -- 2.3*CoagsRecent Labs 09/24/18085APTT 25.9 24.9 -- -- 39.8* 31.6INR 1.2 1.1 1.0 2.0* 2.0* 1.5*Current Medications:Current hospital medications:morphine 1-2 mg injection 1-2 mg INTRAVENOUS q 6 H PRNoxyCODONE 5 mg oral liquid (ROXICODONE) 5 mg ORAL q 4 H JKYtzuyat-kjgpcced-vjmcaqi 2 capsule cap(s) (CREON 24) 2 capsule ORAL TID wMEALSacetaminophen 650 mg tab(s) (TYLENOL) 650 mg ORAL q 6 Hdocusate sodium 100 mg cap(s) (COLACE) 100 mg ORAL BIDatorvastatin 40 mg tab(s) (LIPITOR) 40 mg ORAL/FEEDING TUBE AT BEDTIMEphenol 1 Candor (CHLORASEPTIC) 1 Candor MUCOUS MEMBRANE (TOPICAL MOUTH ANDTHROAT) q 2 [...] Expected increase in pain after epidural removalMuriel ePrez 2017 1:07 PM Normal [facility] Phosphoruson 10-04-2017 Phosphate 3.5 mg/dL Normal 2.5-4.5 [facility] Comment on above: Performed By: #### P T, PTT, AMYL, CMP, LIPA, PHOS ####[facility] [place] 8[address]286[address]#### TRANSF ####[place] [id number] [place] [phone] Amylaseon 10-03-2017 Amylase 44 U/L Normal 0-137 [facility] Comment on above: Performed By: #### P T, PTT, AMYL, CMP, LIPA, PHOS ####[place] [id number] [place] [phone]#### TRANSF ####[place] [address] [place] [phone] Amylase,Body Fluidon 018 Amylase 118 U/L Critically abnormal See Comment [facility] Comment on above: Result Comment: (NOT E)PLEURAL [...] CLSI document C49-A. SAIMA Contreras: Clinical LaboratoryStandards [place]; 2007.3. Kya CLH, Angelia RC, Nimo DJ. Use of cyst fluid CEA,CA19-9, and amylase for evaluation of pancreatic lesions. ClinicalBiochemistry. 2009;42:1048-7534.This test was developed and its performance characteristicsdetermined by [facility]'s [facility] and[facility] ([facility]).It has not been cleared or approved by the FDA. [facility] is regulatedunder CLIA as qualified to perform high-complexity testing.This test is used for clinical purposes. It should not be regarded asinvestigational or for research. Performed By: #### P T, PTT, AMYL, CMP, LIPA, PHOS ####[place] [address]#### TRANSF ####[place] [address] Fluid Type Chandana Howard Drain Normal [facility] Comment on above: Result Comment: LEFT Performed By: #### P T, PTT, AMYL, CMP, LIPA, PHOS ####[place] [address]#### TRANSF ####[place] [address]854[address] Amylase 53 U/L Critically abnormal See Comment [facility] Comment on above: Result Comment: (NOT E)PLEURAL [...] ApprovedGuideline. CLSI document C49-A. SAIMA Contreras: Clinical LaboratoryStandartesia general hospital [place]; 2007.3. Kya CLH, Angelia RC, Nimo DJ. Use of cyst fluid CEA,CA19-9, and amylase for evaluation of pancreatic lesions. ClinicalBiochemistry. 2009;42:8512-8615.This test was developed and its performance characteristicsdetermined by [facility]'s [facility] andLeg[facility] [place] ([facility]).It has not been cleared or approved by the FDA. [facility] is regulatedunder CLIA as qualified to perform high-complexity testing.This test is used for clinical purposes. It should not be regarded asinvestigational or for research. Performed By: #### P T, PTT, AMYL, CMP, LIPA, PHOS ####[address]#### TRANSF ####[place] [address] Fluid Type Chandana Howard Drain Normal [facility] Comment on above: Result Comment: RIGH T Performed By: #### P T, PTT, AMYL, CMP, LIPA, PHOS ####[address]#### TRANSF ####[place] [address] CBC and Differentialon 10-03 Abs Baso <0.03 Normal <0.11 [facility] Comment on above: Performed By: #### P T, PTT, AMYL, CMP, LIPA, PHOS ####[place] [address]#### TRANSF ####[address] [place] [phone] Abs Mcduffie 0.54 k/uL Normal <0.87 [facility] Comment on above: Performed By: #### P T, PTT, AMYL, CMP, LIPA, PHOS ####[place] [address]#### TRANSF ####[place] [address] Abs Neut 3.56 k/uL Normal 1.45-7.50 [facility] Comment on above: Performed By: #### P T, PTT, AMYL, CMP, LIPA, PHOS ####[place] [address]#### TRANSF ####[place] [address] Basophils/100 WBC Auto (Bld) 0.2 % Normal [facility] Comment on above: Performed By: #### P T, PTT, AMYL, CMP, LIPA, PHOS ####[place] [address]#### TRANSF ####[place] [address] DTYPE Auto Diff Normal [facility] Comment on above: Performed By: #### P T, PTT, AMYL, CMP, LIPA, PHOS ####[place] [address]#### TRANSF ####[address] [place] [address]26[address] Eosinophils 0.29 10*3/uL Normal <0.46 [facility] Comment on above: Performed By: #### P T, PTT, AMYL, CMP, LIPA, PHOS ####[place] [address]#### TRANSF ####[place] [address] Eosinophils/100 leukocytes 4.9 % Normal [facility] Comment on above: Performed By: #### P T, PTT, AMYL, CMP, LIPA, PHOS ####[place] [address]#### TRANSF ####[place] [address] Erythrocyte distribution width Auto Ratio (RBC) 16.1 % High 11.5-15.0 [facility] Comment on above: Performed By: #### P T, PTT, AMYL, CMP, LIPA, PHOS ####[place] [address]#### TRANSF ####[place] [address] Erythrocytes (RBC) 3.72 10*6/uL Low 4.20-6.00 [facility] Comment on above: Performed By: #### P T, PTT, AMYL, CMP, LIPA, PHOS ####[place] [address]#### TRANSF ####[place] [address] Hematocrit (HCT) 29.4 % Low 39.0-51.0 [facility] Comment on above: Performed By: #### P T, PTT, AMYL, CMP, LIPA, PHOS ####[place] [address]#### TRANSF ####[address] [phone] Hemoglobin mass conc (Bld) 9.5 g/dL Low 13.0-17.0 [facility] Comment on above: Performed By: #### P T, PTT, AMYL, CMP, LIPA, PHOS ####[place] [address]#### TRANSF ####[phone] Lymphocytes 1.52 10*3/uL Normal 1.00-4.00 [facility] Comment on above: Performed By: #### P T, PTT, AMYL, CMP, LIPA, PHOS ####[place] [address]#### TRANSF ####[place] [address] Lymphocytes/100 leukocytes 25.7 % Normal [facility] Comment on above: Performed By: #### P T, PTT, AMYL, CMP, LIPA, PHOS ####[place] [address]#### TRANSF ####[place] [address] MCH 25.5 pG Low 26.0-34.0 [facility] Comment on above: Performed By: #### P T, PTT, AMYL, CMP, LIPA, PHOS ####[place] [address]#### TRANSF ####[place] [address] MCHC mass conc (RBC) 32.3 g/dL Normal 30.5-36.0 [facility] Comment on above: Performed By: #### P T, PTT, AMYL, CMP, LIPA, PHOS ####[address]#### TRANSF ####[place] [address] MCV 79.0 fL Low 80.0-100.0 [facility] Comment on above: Performed By: #### P T, PTT, AMYL, CMP, LIPA, PHOS ####[place] [address]#### TRANSF ####[place] [address] [place] [phone] Monocytes/100 leukocytes 9.1 % Normal [facility] Comment on above: Performed By: #### P T, PTT, AMYL, CMP, LIPA, PHOS ####[place] [address]#### TRANSF ####[address] [place] [phone] Neutrophils/100 WBC Auto (Bld) 60.1 % Normal [facility] Comment on above: Performed By: #### P T, PTT, AMYL, CMP, LIPA, PHOS ####[place] [address]#### TRANSF ####[place] [address] Platelet mean volume (PMV) 10.0 fL Normal 9.0-12.7 [facility] Comment on above: Performed By: #### P T, PTT, AMYL, CMP, LIPA, PHOS ####[place] [address]#### TRANSF ####[place] [phone] Platelets 225 10*3/uL Normal 150-400 [facility] Comment on above: Performed By: #### P T, PTT, AMYL, CMP, LIPA, PHOS ####[place] [address]#### TRANSF ####[address] [place] [phone] WBC (Leukocytes) 5.92 10*3/uL Normal 3.70-11.00 [facility] Comment on above: Performed By: #### P T, PTT, AMYL, CMP, LIPA, PHOS ####[facility] [place], [place] [phone]#### TRANSF ####[facility] [address] [place], [place] [phone] CONSULT PROGon 10-03-2017 CONSULT PROG HNO ID: [id number] thor: Brock Felder) [place]: Pain ManagementAuthor Type: Physician AssistantType: Consult Progress NoteFiled: 10/03/2017 9:15 AMNote Text:PERIPHERAL NERVE CATHETER PROGRESS NOTEPATIENT NAME: Rocio JacksonMRN: [id number] DATE: 10/03/2017SERVICE TIME: 8:59 AMPRIMARY SERVICE: General [...] catheter placed: Day of surgery?MEDICATIONS:Epidural Medications and TYPEWRITER MECHANIC SettingsBupivacaine 0.1% + Dilaudid?Basal rate: 4 mL/hr.Patient Demand Bolus: 3 mL.Lockout interval: 4 minutes.??Current hospital medications:oxyCODONE IR 5 mg tab(s) (ROXICODONE) 5 mg ORAL q 4 H PRNdocusate sodium 100 mg cap(s) (COLACE) 100 mg ORAL BIDacetaminophen 650 mg CUP (TYLENOL) 650 mg ORAL/FEEDING TUBE q 6 Hatorvastatin 40 mg tab(s) (LIPITOR) 40 mg ORAL/FEEDING TUBE AT BEDTIMEphenol 1 Candor (CHLORASEPTIC) 1 Candor MUCOUS MEMBRANE (TOPICAL MOUTH ANDTHROAT) q 2 [...] mg ORAL q 8 HHYDROmorphone 0.5 mg/mL TYPEWRITER MECHANIC CLINICIAN DOSE 0.2 mg 0.2 mg INTRAVENOUS q 6 HPRNinsulin lispro injection (rapid acting) (HumaLOG) SUBCUTANEOUS q 6 Hheparin 5,000 Units injection 5,000 Units SUBCUTANEOUS q 12 Hmetoclopramide HCl 10 mg injection (REGLAN) 10 mg INTRAVENOUS q 6 H PRNOBJECTIVE:PHYSICAL EXAM:Patient Vitals for the past 3 hrs: BP Temp Temp src Pulse Resp EuB019/01/13 0736 134/78 37.3 ?C (99.2 ?F) Oral [...] RaiATURE: Brock Dixon PA-C PATIENT NAME: Rocio FrischDATE: October 03, 2017 : 8:59 AM PAGER/CONTACT #: MIL[place] [phone] Normal [facility] Comp Metabolic Panelon 10-03 Alanine aminotransferase (ALT) 25 U/L Normal 5-50 [facility] Comment on above: Performed By: #### P T, PTT, AMYL, CMP, LIPA, PHOS ####[facility] [place] [address]#### TRANSF ####[place] [address] Albumin 2.5 g/dL Low 3.5-5.0 [facility] Comment on above: Performed By: #### P T, PTT, AMYL, CMP, LIPA, PHOS ####[place] [address]#### TRANSF ####[place] [address] Alkaline phosphatase (ALP) 72 U/L Normal 40-150 [facility] Comment on above: Performed By: #### P T, PTT, AMYL, CMP, LIPA, PHOS ####[place] [address]#### TRANSF ####[place] [address] Anion gap 11 mmol/L Normal 9-18 [facility] Comment on above: Performed By: #### P T, PTT, AMYL, CMP, LIPA, PHOS ####[place] [address]#### TRANSF ####[place] [address] Aspartate aminotransferase (AST) 20 U/L Normal 7-40 [facility] Comment on above: Performed By: #### P T, PTT, AMYL, CMP, LIPA, PHOS ####[place] [address]#### TRANSF ####[place] [id number] Bilirubin (total) 0.2 mg/dL Normal 0.0-1.5 [facility] Comment on above: Performed By: #### P T, PTT, AMYL, CMP, LIPA, PHOS ####[place] [address]#### TRANSF ####[place] [address] Calcium 8.3 mg/dL Low 8.5-10.5 [facility] Comment on above: Performed By: #### P T, PTT, AMYL, CMP, LIPA, PHOS ####[place] [address]#### TRANSF ####[place] [address] Chloride 105 mmol/L Normal 98-110 [facility] Comment on above: Performed By: #### P T, PTT, AMYL, CMP, LIPA, PHOS ####[place] [address]#### TRANSF ####[place] [address] CO2 24 mmol/L Normal 23-32 [facility] Comment on above: Performed By: #### P T, PTT, AMYL, CMP, LIPA, PHOS ####[place] [address]#### TRANSF ####[place] [address] Creatinine 0.55 mg/dL Low 0.70-1.40 [facility] Comment on above: Performed By: #### P T, PTT, AMYL, CMP, LIPA, PHOS ####[place] [address]#### TRANSF ####[place] [address] eGFR (non-black) mL/min/{1.73_m2} Normal >60 [facility] Comment on above: Performed By: #### P T, PTT, AMYL, CMP, LIPA, PHOS ####[place] [address]#### TRANSF ####[place] [address] Glucose mass conc 138 mg/dL High 65-100 [facility] Comment on above: Performed By: #### P T, PTT, AMYL, CMP, LIPA, PHOS ####[place] [address]#### TRANSF ####[place] [address] Potassium molar conc 4.1 mmol/L Normal 3.5-5.0 [facility] Comment on above: Performed By: #### P T, PTT, AMYL, CMP, LIPA, PHOS ####[place] [address]#### TRANSF ####[place] [address] Protein 5.7 g/dL Low 6.0-8.4 [facility] Comment on above: Performed By: #### P T, PTT, AMYL, CMP, LIPA, PHOS ####[place] [address]#### TRANSF ####[place] [address] Sodium 140 mmol/L Normal 135-146 [facility] Comment on above: Performed By: #### P T, PTT, AMYL, CMP, LIPA, PHOS ####[place] [address]#### TRANSF ####[place] [address] Urea nitrogen 18 mg/dL Normal 10-25 [facility] Comment on above: Performed By: #### P T, PTT, AMYL, CMP, LIPA, PHOS ####[address], [place] [phone]#### TRANSF ####[address] [phone] Magnesiumon 10-03-2017 Magnesium 1.8 mg/dL Normal 1.7-2.6 [facility] Comment on above: Performed By: #### P T, PTT, AMYL, CMP, LIPA, PHOS ####[place] [address]#### TRANSF ####[address] [phone] NURSING PROGon 10-03-2017 NURSING PROG HNO ID: [id number] thor: Srinivasan KenRn) MOUSTAPHA Nicoleervice: (none)Author Type: Registered NurseType: Nursing Progress NoteFiled: 10/04/2017 1:34 AMNote Text: Nursing Progress NotePatient Name: Rocio Boudreaux: [id number] Location: [place] [address]/[id number] ____Daily Note: Pt AANDOx3. Adequate saturation on RA. ABD distended, tender totouch. Midline ADELA. Pt states he has passed a little gas. [place]anc[place] drainingclear, yellow. Epidural infusing per order. Tube feed at 50cc/hr.Ambulated pod with x1 assist and walker. No needs voiced. Call lightwithin reach, will continue to monitor.This note was completed by: Srinivasan Nicole RN [facility] NURSING PROG HNO ID: [id number] thor: Serena KenRn) MOUSTAPHA Stewartervice: NursingAuthor Type: Registered NurseType: Nursing Progress NoteFiled: 10/03/2017 6:32 PMNote Text: Nursing Progress NotePatient Name: Rocio Boudreaux: [id number] Location: [place] [address]/[id number] ____Daily Note: Late entry for 1100: Pt ambulated custodial around POD usingwalker ( standby assistance). Pt tolerated well. Currently sitting inrecliner chair. Family at bedside.1300: Diet advanced to full liquids. Tolerating well. Creon given withlunch. Handout given and teaching provided about new medication.1500: Right biliary drain flushed with 5cc NS per order. New drainsponges applied to right and left ROMINA drains.1530: Pt ambulated custodial around POD for 2nd time this [id number]: Resident into remove pt's ROMINA drains. PtThis note was completed by: Serena Stewart RN [facility] NURSING PROG HNO ID: [id number] thor: Jennifer Humphries (Rn) Eleanor, RNService: (none)Author Type: Registered NurseType: Nursing Progress NoteFiled: 10/02/2017 11:39 PMNote Text: Nursing Progress NotePatient Name: Rocio JacksonMRN: [id number] Location: [place] [address]/[id number] ____ Pt up in chair at start of shift. Pts and sister staying in room wpt. Rates pain 1 , states epidural adequate for pain control. Bili drainflushed earlier per orders, flushes well. Pt denies nausea with clears.BS hypo. Denies passing flatus.This note was completed by: Jennifer Webster RN [facility] PROGRESSon 10-03-2017 PROGRESS HNO ID: [id number] thor: Mela Carroll: General SurgeryAuthor Type: PhysicianType: Progress NotesFiled: 10/03/2017 1:26 PMNote Text:Covering MDNo new c/oPain well controlledCont epidural for nowWill remove drains if no evid for leakPt appreciative of Molly Verdin MD [facility] PROGRESS HNO ID: [id number] thor: Flynn (Res) ASHLEY Laraervice: General SurgeryAuthor [...] lb 12.3 oz) SpO2 97% BMI 29.77 kg/i4YDDEYPT: no acute distressABDOMEN: soft, diffusely tender, nondistended. Incision c/d/i. Foleydraining yellow-red urine. Both JPs with serosanguinous fluid.Labs:CBC, BMP, MG, PHOSRecent Labs 10/02/182032805WBC 5.92 6.15 6.47 -- 8.38 < > [...] 0.5LACT -- -- -- 2.3*CoagsRecent Labs 09/24/18083 08/15/18205APTT 25.9 24.9 -- -- 39.8* 31.6INR 1.2 1.1 1.0 2.0* 2.0* 1.5*Intake and Output:Date 10/01/17699 - 10/02/17 0659 10/02/17699 - 10/03/17 0659Shift 4251-1919 0730-0110 4158-4030 24 Hour Total 2749-6273 6533-64903411-3663 24 Hour TotalINTAKE PO 0 97 482 [...] 2886 601.6 3637.6 60 60OUTPUT Urine 310 737 734 0070 75 75 Tube Output ( Indwelling Urinary Catheter 09/30/17 0909 [place] 16Fr) 310 348 576 0292 75 75 Tubes 70 135 35 240 [...] BM (mL) 0 0 Shift Total 380 325 249 0648 75 75Weight (kg) 81.1 81.1 88.8 88.8 88.8 88.8 88.8 88.8Current Medications:Current hospital medications:oxyCODONE IR 5 mg tab(s) (ROXICODONE) 5 mg ORAL q 4 H XZNmrgklv-yvupahgm-iaawmqs 2 capsule cap(s) (CREON 24) 2 capsule ORAL TID wMEALSacetaminophen 650 mg tab(s) (TYLENOL) 650 mg ORAL q 6 Hdocusate sodium 100 mg cap(s) (COLACE) 100 mg ORAL BIDatorvastatin 40 mg tab(s) (LIPITOR) 40 mg ORAL/FEEDING TUBE AT BEDTIMEphenol 1 Candor (CHLORASEPTIC) 1 Candor MUCOUS MEMBRANE (TOPICAL MOUTH ANDTHROAT) q 2 [...] mg ORAL q 8 HHYDROmorphone 0.5 mg/mL TYPEWRITER MECHANIC CLINICIAN DOSE 0.2 mg 0.2 mg INTRAVENOUS q 6 HPRNinsulin lispro injection (rapid acting) (HumaLOG) SUBCUTANEOUS q 6 Hheparin 5,000 Units injection 5,000 Units SUBCUTANEOUS q 12 Hmetoclopramide HCl 10 mg injection (REGLAN) 10 mg INTRAVENOUS q 6 H PRN Normal [facility] Phosphoruson 10-03-2017 Phosphate 3.1 mg/dL Normal 2.5-4.5 [facility] Comment on above: Performed By: #### P T, PTT, AMYL, CMP, LIPA, PHOS ####[facility] [place], [place] [phone]#### TRANSF ####[facility] [place], [place] [phone] Amylaseon 10-02-2017 Amylase 45 U/L Normal 0-137 [facility] Comment on above: Performed By: #### P T, PTT, AMYL, CMP, LIPA, PHOS ####[place] [address] [place], [place] [phone]#### TRANSF ####[facility] [place], [place] [phone] CASE MANAGEMon 10-02-2017 CASE MANAGEM HNO ID: [id number] thor: Lee Ann (Rn) Sveta, RNService: Care ManagementAuthor Type: Registered NurseType: Care Mgt Progress NoteFiled: 10/02/2017 11:48 AMNote Text:CARE MANAGEMENT PROGRESS NOTESERVICE DATE: 10/02/2017SERVICE TIME: 11:44 AM LOS: 2 daysFREEDOM OF CHOICE GIVEN:Yes patientProvider List: Assisted FacilityNeeds Prior to Discharge: Accepting FacilityTCC met with patient and sister Briana at bedside. Discussed PTrecommendations for acute rehab--[facility] closest [facility] that acceptshis insurance, patient states [facility] be [facility] and states would prefer a SNF closer to home. Givenprovider list, patient and sister want to look over the list beforedeciding. CM will continue to assist with transition of care needs.SIGNATURE: Lee Ann Bangura RN PATIENT NAME: Rocio JacksonDATE: October 02, 2017 : 11:44 AM PAGER/CONTACT #: [phone] Normal [facility] CBCon 10-02-2017 Erythrocyte distribution width Auto Ratio (RBC) 16.2 % High 11.5-15.0 [facility] Comment on above: Performed By: #### P T, PTT, AMYL, CMP, LIPA, PHOS ####[address] [phone]#### TRANSF ####[facility] [place], [place] [phone] Erythrocytes (RBC) 3.38 10*6/uL Low 4.20-6.00 [facility] Comment on above: Performed By: #### P T, PTT, AMYL, CMP, LIPA, PHOS ####[place] [address]#### TRANSF ####[place] [address] Hematocrit (HCT) 26.4 % Low 39.0-51.0 [facility] Comment on above: Performed By: #### P T, PTT, AMYL, CMP, LIPA, PHOS ####[place] [address]#### TRANSF ####[place] [address]854[address] Hemoglobin mass conc (Bld) 8.6 g/dL Low 13.0-17.0 [facility] Comment on above: Performed By: #### P T, PTT, AMYL, CMP, LIPA, PHOS ####[place] [address]#### TRANSF ####[place] [address] MCH 25.4 pG Low 26.0-34.0 [facility] Comment on above: Performed By: #### P T, PTT, AMYL, CMP, LIPA, PHOS ####[place] [address]#### TRANSF ####[place] [address]854[address]5755 MCHC mass conc (RBC) 32.6 g/dL Normal 30.5-36.0 [facility] Comment on above: Performed By: #### P T, PTT, AMYL, CMP, LIPA, PHOS ####[place] [address]#### TRANSF ####[place] [address] MCV 78.1 fL Low 80.0-100.0 [facility] Comment on above: Performed By: #### P T, PTT, AMYL, CMP, LIPA, PHOS ####[place] [address]#### TRANSF ####[place] [phone] Platelet mean volume (PMV) 9.4 fL Normal 9.0-12.7 [facility] Comment on above: Performed By: #### P T, PTT, AMYL, CMP, LIPA, PHOS ####[place] [address]#### TRANSF ####[place] [address]854[address] Platelets 210 10*3/uL Normal 150-400 [facility] Comment on above: Performed By: #### P T, PTT, AMYL, CMP, LIPA, PHOS ####[place] [address]#### TRANSF ####[place] [address]854[address]5755 WBC (Leukocytes) 6.15 10*3/uL Normal 3.70-11.00 [facility] Comment on above: Performed By: #### P T, PTT, AMYL, CMP, LIPA, PHOS ####[place] [address]#### TRANSF ####[place] [phone] CBC and Differentialon 10-02 Abs Baso <0.03 Normal <0.11 [facility] Comment on above: Performed By: #### P T, PTT, AMYL, CMP, LIPA, PHOS ####[place] [address]#### TRANSF ####[place] [phone] Abs Mcduffie 0.49 k/uL Normal <0.87 [facility] Comment on above: Performed By: #### P T, PTT, AMYL, CMP, LIPA, PHOS ####[place] [address]#### TRANSF ####[place] [address]854-5755 Abs Neut 4.18 k/uL Normal 1.45-7.50 [facility] Comment on above: Performed By: #### P T, PTT, AMYL, CMP, LIPA, PHOS ####[place] [address]#### TRANSF ####[place] [address]854[address] Basophils/100 WBC Auto (Bld) 0.2 % [facility] Comment on above: Performed By: #### P T, PTT, AMYL, CMP, LIPA, PHOS ####[place] [address]#### TRANSF ####[place] [address]854[address] DTYPE Auto Diff [facility] Comment on above: Performed By: #### P T, PTT, AMYL, CMP, LIPA, PHOS ####[place] [address]#### TRANSF ####[place] [address]854-5[address] Eosinophils 0.23 10*3/uL Normal <0.46 [facility] Comment on above: Performed By: #### P T, PTT, AMYL, CMP, LIPA, PHOS ####[place] [address]#### TRANSF ####[place] [address]854[address] Eosinophils/100 leukocytes 3.6 % Normal [facility] Comment on above: Performed By: #### P T, PTT, AMYL, CMP, LIPA, PHOS ####[place] [address]#### TRANSF ####[place] [address] Erythrocyte distribution width Auto Ratio (RBC) 16.6 % High 11.5-15.0 [facility] Comment on above: Performed By: #### P T, PTT, AMYL, CMP, LIPA, PHOS ####[place] [address]#### TRANSF ####[place] [address] Erythrocytes (RBC) 3.13 10*6/uL Low 4.20-6.00 [facility] Comment on above: Performed By: #### P T, PTT, AMYL, CMP, LIPA, PHOS ####[place] [address]#### TRANSF ####[place] [address] Hematocrit (HCT) 24.3 % Low 39.0-51.0 [facility] Comment on above: Performed By: #### P T, PTT, AMYL, CMP, LIPA, PHOS ####[place] [address]#### TRANSF ####[place] [address] Hemoglobin mass conc (Bld) 7.8 g/dL Low 13.0-17.0 [facility] Comment on above: Performed By: #### P T, PTT, AMYL, CMP, LIPA, PHOS ####[place] [address]#### TRANSF ####[place] [address]-5[address] Lymphocytes 1.56 10*3/uL Normal 1.00-4.00 [facility] Comment on above: Performed By: #### P T, PTT, AMYL, CMP, LIPA, PHOS ####[place] [address]#### TRANSF ####[place] [id number] Lymphocytes/100 leukocytes 24.1 % Normal [facility] [facility] Comment on above: Performed By: #### P T, PTT, AMYL, CMP, LIPA, PHOS ####[place] [id number]#### TRANSF ####[place] [id number] MCH 24.9 pG Low 26.0-34.0 [employer] [facility] Comment on above: Performed By: #### P T, PTT, AMYL, CMP, LIPA, PHOS ####[place] [id number]#### TRANSF ####[place] [id number] MCHC mass conc (RBC) 32.1 g/dL Normal 30.5-36.0 [facility] Comment on above: Performed By: #### P T, PTT, AMYL, CMP, LIPA, PHOS ####[place] [id number]#### TRANSF ####[place] [id number] MCV 77.6 fL Low 80.0-100.0 [facility] [employer] Comment on above: Performed By: #### P T, PTT, AMYL, CMP, LIPA, PHOS ####[place] [address]#### TRANSF ####[address], [place] [phone] Monocytes/100 leukocytes 7.6 % Normal [facility] Comment on above: Performed By: #### P T, PTT, AMYL, CMP, LIPA, PHOS ####[place] [address]#### TRANSF ####[place] [phone] Neutrophils/100 WBC Auto (Bld) 64.5 % Normal [facility] Comment on above: Performed By: #### P T, PTT, AMYL, CMP, LIPA, PHOS ####[place] [address]#### TRANSF ####[place] [phone] Platelet mean volume (PMV) 9.1 fL Normal 9.0-12.7 [facility] Comment on above: Performed By: #### P T, PTT, AMYL, CMP, LIPA, PHOS ####[place] [address]#### TRANSF ####[place] [phone] Platelets 207 10*3/uL Normal 150-400 [facility] Comment on above: Performed By: #### P T, PTT, AMYL, CMP, LIPA, PHOS ####[place] [address]#### TRANSF ####[place] [phone] WBC (Leukocytes) 6.47 10*3/uL Normal 3.70-11.00 [facility] Comment on above: Performed By: #### P T, PTT, AMYL, CMP, LIPA, PHOS ####[address]#### TRANSF ####[facility] [place], [place] [phone] CONSULT PROGon 10-02-2017 CONSULT PROG HNO ID: [id number] thor: Matilda Hydee: AnesthesiologyAuthor Type: AnesthesiologistType: Consult Progress NoteFiled: 10/02/2017 9:33 AMNote Text:APS EPIDURAL CATHETER PROGRESS NOTESERVICE DATE: 10/02/2017SERVICE TIME: 9:27 AMPRIMARY SERVICE: HBSSubjectiveINTERVAL HPI:Rocio Jackson is a 62 year old male who is POD #2 S/P WhipplePatient also has an IV TYPEWRITER MECHANIC: NoIV Line Appears Intact YesPain at Surgical [...] Placed: Day of surgeryMEDICATIONS:I have interrogated the TYPEWRITER MECHANIC pump(s) for the correct settings and solution:Yes.EPIDURAL MEDICATIONS AND TYPEWRITER MECHANIC SETTINGS: Other: bupivicaine + hydromorphoneBasal Rate: 4 mL/hr.Patient Demand Bolus: 3 mL.Lockout Interval: 15 Minutes.Additional Medication(s) GIven: See BelowAnticoagulation Therapy: noneCurrent hospital medications:magnesium sulfate in water 2 g in sterile water 50 ml 2 g INTRAVENOUS ONCEsodium phosphate 15 mmol in D5W 250 mL 15 mmol INTRAVENOUS ONCEdocusate sodium 100 mg cap(s) (COLACE) 100 mg ORAL BIDphenol 1 Candor (CHLORASEPTIC) 1 Candor MUCOUS MEMBRANE (TOPICAL MOUTH ANDTHROAT) q 2 [...] (MOTRIN) 800 mg ORAL q 8 HHYDROmorphone TYPEWRITER MECHANIC 0.5 mg/mL in NaCl 0.9% 100 mL INTRAVENOUS CONTINUOUSHYDROmorphone 0.5 mg/mL TYPEWRITER MECHANIC CLINICIAN DOSE 0.2-0.4 mg 0.2-0.4 mgINTRAVENOUS (PACU) PRNHYDROmorphone 0.5 mg/mL TYPEWRITER MECHANIC CLINICIAN DOSE 0.2 mg 0.2 mg INTRAVENOUS q 6 HPRNinsulin lispro injection (rapid acting) (HumaLOG) SUBCUTANEOUS q 6 Hheparin 5,000 Units injection 5,000 Units SUBCUTANEOUS q 12 Hmetoclopramide HCl 10 mg injection (REGLAN) 10 mg INTRAVENOUS q 6 H PRNPHYSICAL EXAM:Patient Vitals for the past 4 hrs: BP Temp Temp src Pulse Resp SpO2 Iauyij76/06/18 0800 134/79 36.7 ?C (98 ?F) Oral [...] HPI above. Pain wellcontrolled with current epidural TYPEWRITER MECHANIC.Assessment: Pain adequately controlled.Patient satisfied with analgesic regimen..Plan of Care: Continue epidural analgesia to promote comfort, mobility,and pulmonary toilet.Plan to start roxicodone tomorrow once the patient continue to tolerateenteral nutrition and hold epidural catheter.SIGNATURE: Matilda Raya MD PATIENT NAME: Rocio FrischDATE: October 02, 2017 : 9:27 AM PAGER/CONTACT #: Normal [facility] [employer] Comp Metabolic Panelon 10-02 Alanine aminotransferase (ALT) 27 U/L Normal 5-50 [facility] Comment on above: Performed By: #### P T, PTT, AMYL, CMP, LIPA, PHOS ####[facility] [place], [place] [phone]#### TRANSF ####[place] [address] Albumin 2.5 g/dL Low 3.5-5.0 [facility] Comment on above: Performed By: #### P T, PTT, AMYL, CMP, LIPA, PHOS ####[place] [address]#### TRANSF ####[place] [phone] Alkaline phosphatase (ALP) 68 U/L Normal 40-150 [facility] Comment on above: Performed By: #### P T, PTT, AMYL, CMP, LIPA, PHOS ####[place] [address]#### TRANSF ####[place] [address]854-5[address] Anion gap 6 mmol/L Low 9-18 [facility] Comment on above: Performed By: #### P T, PTT, AMYL, CMP, LIPA, PHOS ####[place] [address]#### TRANSF ####[place] [address]854-5[address] Aspartate aminotransferase (AST) 23 U/L Normal 7-40 [facility] Comment on above: Performed By: #### P T, PTT, AMYL, CMP, LIPA, PHOS ####[address]#### TRANSF ####[place] [address] Bilirubin (total) 0.3 mg/dL Normal 0.0-1.5 [facility] Comment on above: Performed By: #### P T, PTT, AMYL, CMP, LIPA, PHOS ####[phone]#### TRANSF ####[place] [phone] Calcium 8.3 mg/dL Low 8.5-10.5 [facility] [employer] Comment on above: Performed By: #### P T, PTT, AMYL, CMP, LIPA, PHOS ####[place] [address]#### TRANSF ####[place] [address] Chloride 103 mmol/L Normal 98-110 [facility] Comment on above: Performed By: #### P T, PTT, AMYL, CMP, LIPA, PHOS ####[place] [address]#### TRANSF ####[place] [address] CO2 26 mmol/L Normal 23-32 [facility] Comment on above: Performed By: #### P T, PTT, AMYL, CMP, LIPA, PHOS ####[place] [address]#### TRANSF ####[place] [address] Creatinine 0.64 mg/dL Low 0.70-1.40 [facility] [employer] Comment on above: Performed By: #### P T, PTT, AMYL, CMP, LIPA, PHOS ####[place] [address]#### TRANSF ####[place] [address] eGFR (non-black) mL/min/{1.73_m2} Normal >60 [facility] Comment on above: Performed By: #### P T, PTT, AMYL, CMP, LIPA, PHOS ####[place] [address]#### TRANSF ####[place] [address] Glucose mass conc 154 mg/dL High 65-100 [facility] Comment on above: Performed By: #### P T, PTT, AMYL, CMP, LIPA, PHOS ####[place] [address]#### TRANSF ####[place] [address] Potassium molar conc 4.2 mmol/L Normal 3.5-5.0 [facility] Comment on above: Performed By: #### P T, PTT, AMYL, CMP, LIPA, PHOS ####[place] [address]#### TRANSF ####[place] [phone] Protein 5.3 g/dL Low 6.0-8.4 [facility] Comment on above: Performed By: #### P T, PTT, AMYL, CMP, LIPA, PHOS ####[place] [address]#### TRANSF ####[place] [address]854[address] Sodium 135 mmol/L Normal 135-146 [facility] Comment on above: Performed By: #### P T, PTT, AMYL, CMP, LIPA, PHOS ####[place] [address]#### TRANSF ####[place] [address] Urea nitrogen 22 mg/dL Normal 10-25 [facility] Comment on above: Performed By: #### P T, PTT, AMYL, CMP, LIPA, PHOS ####[place] [phone]#### TRANSF ####[address] [phone] Magnesiumon 10-02-2017 Magnesium 1.9 mg/dL Normal 1.7-2.6 [facility] Comment on above: Performed By: #### P T, PTT, AMYL, CMP, LIPA, PHOS ####[facility] [place] [phone]#### TRANSF ####[address] [phone] NURSING PROGon 10-02-2017 NURSING PROG HNO ID: [id number] thor: Luis (Rn) MOUSTAPHA Salinaservice: (none)Author Type: Registered NurseType: Nursing Progress NoteFiled: 10/02/2017 6:43 PMNote Text: Nursing Progress NotePatient Name: Rocio TorresBryannaN: [id number] Location: [place] [address]/[id number] ____Daily Note:1600: pt transferred from [facility] to [facility]. Pt sitting in chair.Blood transfusion infusing well without difficulty. Nurse emptied JPdrains x2, see IANDO. Pt states he has no pain at this time. Pt has abuprivacaine-hydromorphone epidural. Epidural control in hand. Willmonitor, call light in reach.1833: blood transfusion completed. Pt tolerated well.This note was completed by: Luis Salinas RN [facility] NURSING PROG HNO ID: [id number] thor: Sabrina KenRn) MOUSTAPHA Cornejoervice: NursingAuthor Type: Registered NurseType: Nursing Progress NoteFiled: 10/02/2017 2:48 PMNote Text: Nursing Progress NotePatient Name: Rociomarisa HayesN: [id number] Location: [place] [address]/[id number] ___Daily Note:0700 bedside report received from FRANSICO Valerio. Gtt checked.Patient [id number] patient assessed see [id number] OT at bedside assessing patient.0840 patient walked with a walker and OT 1 [id number] patient tolerates chair 1 assist up to stand and march in [id number] called report to [id number] note was completed by: Sabrina Cornejo RN [facility] PROGRESSon 10-02-2017 PROGRESS HNO ID: [id number] thor: Rick Stinson: Critical CareAuthor Type: PhysicianType: Progress NotesFiled: 10/02/2017 [...] discussed with ICU Staff Dr. Boothe.Kolby Brown MDGenetoledo hospital Surgery[C]: [phone] [P]: [id number]: 10/02/2017Time: 10:32 AMSubjective:Interval Events: NAEON. TFs at goal.Physical Exam:BP 134/79 Pulse 88 Temp 36.7 ?C (98 ?F) (Oral) Resp 19 Ht 172.7 cm(5' 7.99 ) Wt 88.8 kg (195 lb 12.3 oz) SpO2 98% BMI 29.77 kg/k8HOROKRY: Well appearing 62 year old male in no distressNEURO: AAOx3, BVQ92WZEFH: Atraumatic, corpak in palceCHEST: nonlabored breathing on [...] 1.0 2.0* 2.0* 1.5*Intake and Output:Date 10/01/17 0700 - 10/02/17 0659 10/02/17 07 - 10/03/17 0659Shift 4253-9226 5093-9438 7679-9323 24 Hour Total 2861-5746 9262-72690329-3442 24 Hour TotalINTAKE PO 0 97 482 [...] 2886 601.6 3637.6 60 60OUTPUT Urine 310 332 698 2690 75 75 Tube Output ( Indwelling Urinary Catheter 09/30/17 0909 [place] 16Fr) 310 866 777 1723 75 75 Tubes 70 135 35 240 [...] BM (mL) 0 0 Shift Total 380 619 584 5965 75 75Weight (kg) 81.1 81.1 88.8 88.8 88.8 88.8 88.8 88.8Current Medications:Current hospital medications:magnesium sulfate in water 2 g in sterile water 50 ml 2 g INTRAVENOUS ONCEsodium phosphate 15 mmol in D5W 250 mL 15 mmol INTRAVENOUS ONCEdocusate sodium 100 mg cap(s) (COLACE) 100 mg ORAL BIDphenol 1 Candor (CHLORASEPTIC) 1 Candor MUCOUS MEMBRANE (TOPICAL MOUTH ANDTHROAT) q 2 [...] (MOTRIN) 800 mg ORAL q 8 HHYDROmorphone TYPEWRITER MECHANIC 0.5 mg/mL in NaCl 0.9% 100 mL INTRAVENOUS CONTINUOUSHYDROmorphone 0.5 mg/mL TYPEWRITER MECHANIC CLINICIAN DOSE 0.2-0.4 mg 0.2-0.4 mgINTRAVENOUS (PACU) PRNHYDROmorphone 0.5 mg/mL TYPEWRITER MECHANIC CLINICIAN DOSE 0.2 mg 0.2 mg INTRAVENOUS [...] 5 mg tab Take by mouth once daily.[facility] STAFF PHYSICIAN SUPERVISING RESIDENTI have reviewed the [...] SERVICE: 10/02/2017TIME of SERVICE: 12:44 PM Normal [facility] [employer] PROGRESS HNO ID: [id number] thor: Michael Cedillo) AugustinService: General SurgeryAuthor Type: [...] that 2pm- IPCs, SQH- anticipate [facility] to be discussed with staffSubjective:No acute events overnight. Tolerated sips of liquids no n/v. No flatus orBM.Physical Exam:BP 134/79 Pulse 88 Temp 36.7 ?C (98 ?F) (Oral) Resp 19 Ht 172.7 cm(5' 7.99 ) Wt 88.8 kg (195 lb 12.3 oz) SpO2 98% BMI 29.77 kg/s7JQVTKWA: no acute distressABDOMEN: soft, diffusely tender, nondistended. Incision c/d/i. Foleydraining yellow-red urine. Both JPs with serosanguinous fluid.Labs:CBC, BMP, MG, PHOSRecent Labs 04/06/145242 10/01/1802WBC 6.47 -- 8.38 8.24 7.14 7.49 4.87HB [...] 1.0 2.0* 2.0* 1.5*Intake and Output:Date 10/01/17 0700 - 04/06/18 0659 10/02/17 07 - 10/03/17 0659Shift 8878-0284 9698-4799 1477-6436 24 Hour Total 8534-9678 9473-01814816-4559 24 Hour TotalINTAKE PO 0 97 482 [...] 2886 601.6 3637.6 60 60OUTPUT Urine 310 099 264 9333 75 75 Tube Output ( Indwelling Urinary Catheter 09/30/17 0909 [place] 16Fr) 310 071 415 5916 75 75 Tubes 70 135 35 240 [...] BM (mL) 0 0 Shift Total 380 372 526 8307 75 75Weight (kg) 81.1 81.1 88.8 88.8 88.8 88.8 88.8 88.8Current Medications:Current hospital medications:magnesium sulfate in water 2 g in sterile water 50 ml 2 g INTRAVENOUS ONCEsodium phosphate 15 mmol in D5W 250 mL 15 mmol INTRAVENOUS ONCEdocusate sodium 100 mg cap(s) (COLACE) 100 mg ORAL BIDphenol 1 Candor (CHLORASEPTIC) 1 Candor MUCOUS MEMBRANE (TOPICAL MOUTH ANDTHROAT) q 2 [...] (MOTRIN) 800 mg ORAL q 8 HHYDROmorphone TYPEWRITER MECHANIC 0.5 mg/mL in NaCl 0.9% 100 mL INTRAVENOUS CONTINUOUSHYDROmorphone 0.5 mg/mL TYPEWRITER MECHANIC CLINICIAN DOSE 0.2-0.4 mg 0.2-0.4 mgINTRAVENOUS (PACU) PRNHYDROmorphone 0.5 mg/mL TYPEWRITER MECHANIC CLINICIAN DOSE 0.2 mg 0.2 mg INTRAVENOUS q 6 HPRNinsulin lispro injection (rapid acting) (HumaLOG) SUBCUTANEOUS q 6 Hheparin 5,000 Units injection 5,000 Units SUBCUTANEOUS q 12 Hmetoclopramide HCl 10 mg injection (REGLAN) 10 mg INTRAVENOUS q 6 H PRNSignature: GAEL Tomlinsonate: October 02, 2017Time: 9:55 AMPatient Name: Rocio JacksonN: [id number]*Please page the fellmongery worker pager from 6pm-6am and all day on weekends* Normal [facility] Phosphoruson 10-02-2017 Phosphate 2.3 mg/dL Low 2.5-4.5 [facility] Comment on above: Performed By: #### P T, PTT, AMYL, CMP, LIPA, PHOS ####[facility] [place], [place] [phone]#### TRANSF ####[facility] [address] [place], [place] [phone] THERAPY NTon 10-02-2017 THERAPY NT HNO ID: [id number] thor: Jacqueline (Ot) HallService: Occupational TherapyAuthor Type: Occupational TherapistType: Therapy (PT/OT/Speech/Resp)Filed: 10/02/2017 8:55 AMNote Text:Occupational Therapy EvaluationSERVICE DATE: 10/02/2017SERVICE TIME: 0820 to 0843ROOM: [id number] Discharge Disposition: Acute RehabJustification For Post Acute [...] Pt?s pertinent PMH includes: DM, HTN,CAD, glaucoma, OR, cholecystectomy c/b leak found to have duodenal [...] Involving Cognitive Functions andAwarenessInterventions Provided: Evaluation;Therapeutic Activity (36703)$ Evaluation-Low (22640) Billed Units: 1 unitTherapeutic Activity (53920) Treatment Minutes: 81 unitSkilled Intervention(s): Instructed patient [...] has assist with all IADLs. Works in [employer]. Amb Ind.OBJECTIVE:Orientation Deficits: ConfusedResponsiveness: AwakeFollows Commands: 2-step [...] October 02, 2017 : 8:50 AM PAGER: [phone] Normal [facility] Type and Screenon 10-02-2017 ABO/RH(D) Positive [facility] Comment on above: Performed By: #### P T, PTT, AMYL, CMP, LIPA, PHOS ####[place] [id number] [place] [phone]#### TRANSF ####[place] [address] [place] [phone] Antibody Screen Negative Normal [facility] Comment on above: Performed By: #### P T, PTT, AMYL, CMP, LIPA, PHOS ####[place] [phone]#### TRANSF ####[place] [address] [place] [phone] Amylaseon 10-01-2017 Amylase 151 U/L High 0-137 [facility] Comment on above: Performed By: #### P T, PTT, AMYL, CMP, LIPA, PHOS ####[facility] [place], [place] [phone]#### TRANSF ####[facility] [address] [place], [place] [phone] Amylase,Body Fluidon 018 Amylase 817 U/L Critically abnormal See Comment [facility] Comment on above: Result Comment: (NOT E)PLEURAL [...] CLSI document C49-A. SAIMA Contreras: Clinical LaboratoryStandards [place]; 2007.3. Kya CL, Angelia RC, Nimo DJ. Use of cyst fluid CEA,CA19-9, and amylase for evaluation of pancreatic lesions. ClinicalBiochemistry. 2009;42:5918-4071.This test was developed and its performance characteristicsdetermined by [facility]'s [facility] Pathology andLabst. [facility] Medicine [place] ([facility]).It has not been cleared or approved by the FDA. [facility] is regulatedunder CLIA as qualified to perform high-complexity testing.This test is used for clinical purposes. It should not be regarded asinvestigational or for research. Performed By: #### P T, PTT, AMYL, CMP, LIPA, PHOS ####[facility] [place], [place] [phone]#### TRANSF ####[facility] [address] [place], [place] [phone] Amylase 1954 U/L Critically abnormal See Comment [facility] Comment on above: Result Comment: (NOT E)PLEURAL [...] CLSI document C49-A. SAIMA Contreras: Clinical LaboratoryStandards [place]; 2007.3. Kya CL, Angelia RC, Nimo DJ. Use of cyst fluid CEA,CA19-9, and amylase for evaluation of pancreatic lesions. ClinicalBiochemistry. 2009;42:4262-4818.This test was developed and its performance characteristicsdetermined by [facility]'s [facility] Pathology andLabst. [facility] Medicine [place] ([facility]).It has not been cleared or approved by the FDA. [facility] is regulatedunder CLIA as qualified to perform high-complexity testing.This test is used for clinical purposes. It should not be regarded asinvestigational or for research. Performed By: #### P T, PTT, AMYL, CMP, LIPA, PHOS ####[place] [address]#### TRANSF ####[phone] Fluid Type Peritoneal Fluid Normal [facility] Comment on above: Performed By: #### P T, PTT, AMYL, CMP, LIPA, PHOS ####[place] [phone]#### TRANSF ####[place] [phone] Result Comment: LEFT CASE MGT INIT SANDRAon 2017 CASE MGT INIT SANDRA HNO ID: [id number] thor: Catherine Humphries (Rn) MOUSTAPHA Bradshawervice: Case ManagementAuthor Type: Registered NurseType: Care Mgt Initial AssessmentFiled: 10/01/2017 12:22 PMNote Text:CARE MANAGEMENT: ASSESSMENT AND DISCHARGE PLANSERVICE DATE: 10/01/2017SERVICE TIME: 11:13 amPRIENCOMPASS HEALTH [facility] CARE PHYSICIAN:Adriane Nichols, DOPhone: [email or web address] STATUS: InpatientNeeds Prior to Discharge: To Be Determined;OT/PT EvaluationMEDICAL:Patient/Re presentative Stated Goals:To improve my functional statusTo return home to life as it wasHealth Insurance:[facility] Issues Impacting Discharge Plan: DM, HTNLast Admission [...] Tub bench/chairWalkerHas the Patient Been in a Assisted Facility in the Past 30 days?Yes. Where and Dates: [facility] in [place] GVCBQO:Emily ing Arrangement: HomeLives With: Sister since his discharge from [facility] in August of 2017.Financial Resources: Patient is employedPrimary Contact: Extended Emergency Contact InformationPrimary Emergency Contact: Corazon Mullerddress: [place], [place] [address]Fvzj Bulrrgiy: SiblingSupportive: YesOther Important Patient Contacts: NoneCaregiver Assessment:Caregiver [...] - 0I feel financially burdened by my atg-rq-zmzymz expenses for myprescription medication: Disagree mostly -0Patient [...] OF CHOICE EXPLAINED:Yes on 10/01/17POTENTIAL TRANSITION PLANSHome [facility] OT/PTSkilled Nursing Facility/Intermediate Care FacilityCM met with patient at bedside. His two sisters were in the room at thetime, and patient approved their staying in the room during theassessment. 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 He currently lives with his sister who ishelping with his care since his discharge from [facility] in August. He is active with [facility], and stated he washappy with their services. Patient will need a PT/OT evaluation todetermine skilled/safety needs. CM will continue to follow plan of care toassist with discharge planning.SIGNATURE: Catherine Bradshaw RN PATIENT NAME: Rocio JacksonDATE: October 01, 2017 : 11:13 AM PAGER/CONTACT #: [phone] Normal [facility] CBC and Differentialon 10-01 Abs Baso <0.03 Normal <0.11 [facility] Comment on above: Performed By: #### P T, PTT, AMYL, CMP, LIPA, PHOS ####[place] [address]#### TRANSF ####[place] [address] [phone] Abs Mcduffie 0.60 k/uL Normal <0.87 [facility] Comment on above: Performed By: #### P T, PTT, AMYL, CMP, LIPA, PHOS ####[place] [address]#### TRANSF ####[place] [address] [place] [phone] Abs Neut 5.57 k/uL Normal 1.45-7.50 [facility] Comment on above: Performed By: #### P T, PTT, AMYL, CMP, LIPA, PHOS ####[place] [address]#### TRANSF ####[place] [address] [place] [phone] Basophils/100 WBC Auto (Bld) 0.0 % Normal [facility] Comment on above: Performed By: #### P T, PTT, AMYL, CMP, LIPA, PHOS ####[place] [address]#### TRANSF ####[address] AvDerek [place] [phone] DTYPE Auto Diff Normal [facility] Comment on above: Performed By: #### P T, PTT, AMYL, CMP, LIPA, PHOS ####[place] [address]#### TRANSF ####[place] [address]854[address] Eosinophils 10*3/uL Normal <0.46 [facility] Comment on above: Performed By: #### P T, PTT, AMYL, CMP, LIPA, PHOS ####[place] [address]#### TRANSF ####[place] [address] Eosinophils/100 leukocytes 0.0 % [facility] Comment on above: Performed By: #### P T, PTT, AMYL, CMP, LIPA, PHOS ####[place] [address]#### TRANSF ####[place] [address] Erythrocyte distribution width Auto Ratio (RBC) 16.4 % High 11.5-15.0 [facility] Comment on above: Performed By: #### P T, PTT, AMYL, CMP, LIPA, PHOS ####[place] [address]#### TRANSF ####[address] Av[place] Ville [phone] Erythrocytes (RBC) 3.53 10*6/uL Low 4.20-6.00 [facility] Comment on above: Performed By: #### P T, PTT, AMYL, CMP, LIPA, PHOS ####[place] [address]#### TRANSF ####[place] [phone] Hematocrit (HCT) 27.4 % Low 39.0-51.0 [facility] Comment on above: Performed By: #### P T, PTT, AMYL, CMP, LIPA, PHOS ####[place] [address]#### TRANSF ####[place] [address] Hemoglobin mass conc (Bld) 8.8 g/dL Low 13.0-17.0 [facility] Comment on above: Performed By: #### P T, PTT, AMYL, CMP, LIPA, PHOS ####[place] [address]#### TRANSF ####[place] [address] Lymphocytes 2.21 10*3/uL Normal 1.00-4.00 [facility] Comment on above: Performed By: #### P T, PTT, AMYL, CMP, LIPA, PHOS ####[place] [address]#### TRANSF ####[place] [address] Lymphocytes/100 leukocytes 26.4 % Normal [facility] Comment on above: Performed By: #### P T, PTT, AMYL, CMP, LIPA, PHOS ####[place] [address]#### TRANSF ####[place] [address] MCH 24.9 pG Low 26.0-34.0 [facility] Comment on above: Performed By: #### P T, PTT, AMYL, CMP, LIPA, PHOS ####[place] [address]#### TRANSF ####[place] [phone] MCHC mass conc (RBC) 32.1 g/dL Normal 30.5-36.0 [facility] Comment on above: Performed By: #### P T, PTT, AMYL, CMP, LIPA, PHOS ####[place] [address]#### TRANSF ####[place] [phone] MCV 77.6 fL Low 80.0-100.0 [facility] Comment on above: Performed By: #### P T, PTT, AMYL, CMP, LIPA, PHOS ####[place] [address]#### TRANSF ####[place] [address]854-5[address] Monocytes/100 leukocytes 7.2 % Normal [facility] Comment on above: Performed By: #### P T, PTT, AMYL, CMP, LIPA, PHOS ####[place] [address]#### TRANSF ####[place] [address]854-5755 Neutrophils/100 WBC Auto (Bld) 66.4 % Normal [facility] Comment on above: Performed By: #### P T, PTT, AMYL, CMP, LIPA, PHOS ####[place] [address]#### TRANSF ####[place] [phone] Platelet mean volume (PMV) 9.7 fL Normal 9.0-12.7 [facility] Comment on above: Performed By: #### P T, PTT, AMYL, CMP, LIPA, PHOS ####[address]#### TRANSF ####[place] [phone] Platelets 230 10*3/uL Normal 150-400 [facility] Comment on above: Performed By: #### P T, PTT, AMYL, CMP, LIPA, PHOS ####[place] [address]#### TRANSF ####[place] [phone] WBC (Leukocytes) 8.38 10*3/uL Normal 3.70-11.00 [facility] Comment on above: Performed By: #### P T, PTT, AMYL, CMP, LIPA, PHOS ####[address]#### TRANSF ####[place] [phone] CONSULT PROGon 10-01-2017 CONSULT PROG HNO ID: [id number] thor: Matilda Malloy: Pain ManagementAuthor Type: AnesthesiologistType: [...] catheter placed: Day of surgeryMEDICATIONS:Epidural Medications and TYPEWRITER MECHANIC SettingsBupivacaine 0.1% + DilaudidBasal rate: 6 mL/hr.Patient Demand Bolus: 3 mL.Lockout interval: 4 minutes.Additional medication(s) given: See belowAnticoagulation therapy: Lovenox 40 mgLast Dose given: due at [address] [place] [address] medications:magnesium sulfate in sterile water 4 g [...] (MOTRIN) 800 mg ORAL q 8 HHYDROmorphone TYPEWRITER MECHANIC 0.5 mg/mL in NaCl 0.9% 100 mL INTRAVENOUS CONTINUOUSHYDROmorphone 0.5 mg/mL TYPEWRITER MECHANIC CLINICIAN DOSE 0.2-0.4 mg 0.2-0.4 mgINTRAVENOUS (PACU) PRNHYDROmorphone 0.5 mg/mL TYPEWRITER MECHANIC CLINICIAN DOSE 0.2 mg 0.2 mg INTRAVENOUS q 6 HPRNinsulin lispro injection (rapid acting) (HumaLOG) SUBCUTANEOUS q 6 Hheparin 5,000 Units injection 5,000 Units SUBCUTANEOUS q 12 Henoxaparin 40 mg injection (LOVENOX) 40 mg SUBCUTANEOUS DAILYmetoclopramide HCl 10 mg injection (REGLAN) 10 mg INTRAVENOUS q 6 H PRNPHYSICAL EXAM:Patient Vitals for the past 8 hrs: Temp Temp src Pulse Resp SpO2 Height Ddqqou56/05/18 0700 - - 87 17 97 % [...] 01, 2017 : 8:47 AM PAGER/CONTACT #: YENNIFER [phone] Normal [facility] Comp Metabolic Panelon 10-01 Alanine aminotransferase (ALT) 35 U/L Normal 5-50 [facility] Comment on above: Performed By: #### P T, PTT, AMYL, CMP, LIPA, PHOS ####[facility] [place], [place] [phone]#### TRANSF ####[place] [address] Albumin 2.6 g/dL Low 3.5-5.0 [facility] Comment on above: Result Comment: Norma sumner Performed By: #### P T, PTT, AMYL, CMP, LIPA, PHOS ####[place] [address]#### TRANSF ####[place] [address] Alkaline phosphatase (ALP) 70 U/L Normal 40-150 [facility] Comment on above: Performed By: #### P T, PTT, AMYL, CMP, LIPA, PHOS ####[place] [address]#### TRANSF ####[place] [address] Anion gap 12 mmol/L Normal 9-18 [facility] Comment on above: Performed By: #### P T, PTT, AMYL, CMP, LIPA, PHOS ####[place] [address]#### TRANSF ####[place] [address] Aspartate aminotransferase (AST) 32 U/L Normal 7-40 [facility] Comment on above: Performed By: #### P T, PTT, AMYL, CMP, LIPA, PHOS ####[place] [address]#### TRANSF ####[place] [phone] Bilirubin (total) 0.3 mg/dL Normal 0.0-1.5 [facility] Comment on above: Performed By: #### P T, PTT, AMYL, CMP, LIPA, PHOS ####[place] [address]#### TRANSF ####[place] [address] Calcium 7.7 mg/dL Low 8.5-10.5 [facility] Comment on above: Performed By: #### P T, PTT, AMYL, CMP, LIPA, PHOS ####[place] [address]#### TRANSF ####[place] [address] Chloride 105 mmol/L Normal 98-110 [facility] Comment on above: Performed By: #### P T, PTT, AMYL, CMP, LIPA, PHOS ####[place] [address]#### TRANSF ####[place] [address] CO2 23 mmol/L Normal 23-32 [facility] Comment on above: Performed By: #### P T, PTT, AMYL, CMP, LIPA, PHOS ####[place] [address]#### TRANSF ####[place] [address] Creatinine 0.78 mg/dL Normal 0.70-1.40 [facility] Comment on above: Performed By: #### P T, PTT, AMYL, CMP, LIPA, PHOS ####[place] [address]#### TRANSF ####[place] [address] eGFR (non-black) mL/min/{1.73_m2} Normal >60 [facility] Comment on above: Performed By: #### P T, PTT, AMYL, CMP, LIPA, PHOS ####[place] [address]#### TRANSF ####[phone] Glucose mass conc 145 mg/dL High 65-100 [facility] Comment on above: Performed By: #### P T, PTT, AMYL, CMP, LIPA, PHOS ####[place] [address]#### TRANSF ####[place] [address] Potassium molar conc 4.8 mmol/L Normal 3.5-5.0 [facility] Comment on above: Performed By: #### P T, PTT, AMYL, CMP, LIPA, PHOS ####[place] [address]#### TRANSF ####[place] [address] Protein 5.1 g/dL Low 6.0-8.4 [facility] Comment on above: Performed By: #### P T, PTT, AMYL, CMP, LIPA, PHOS ####[place] [address]#### TRANSF ####[place] [address] Sodium 140 mmol/L Normal 135-146 [facility] Comment on above: Performed By: #### P T, PTT, AMYL, CMP, LIPA, PHOS ####[place] [address]#### TRANSF ####[place] [address] Urea nitrogen 20 mg/dL Normal 10-25 [facility] Comment on above: Performed By: #### P T, PTT, AMYL, CMP, LIPA, PHOS ####[place] [address]#### TRANSF ####[facility] [address] [place], [place] [phone] HISTORY PHYSICALon 8 HISTORY PHYSICAL HNO ID: [id number] thor: Maria De Jesus Valentín) LavrykService: Critical CareAuthor Type: ResidentType: HANDPFiled: 10/01/2017 6:13 [...] Date- ANGIOPLASTY HX 05/15/2011 2 stents s/p OR;[facility]- CHOLECYSTECTOMY 08/11/2017 [facility]- PICC LINE INSERT/CONSULT 08/16/2017No family history [...] 110/88 CVP: 2 Resp: 18 SpO2: 100 %Ekron Vani Readings: Not applicableRESPIRATORYMechani rachid Ventilation: No. Supplemental Oxygen: Yes. 2 L NCRecent Labs [id number] 2.3*PHYSICAL EXAMNeuro: AwakePulmonary: Clear to auscultation. Breath [...] (TORADOL) 15 mg INTRAVENOUS q 6 HHYDROmorphone TYPEWRITER MECHANIC 0.5 mg/mL in NaCl 0.9% 100 mL INTRAVENOUS CONTINUOUSHYDROmorphone 0.5 mg/mL TYPEWRITER MECHANIC CLINICIAN DOSE 0.2-0.4 mg 0.2-0.4 mgINTRAVENOUS (PACU) PRNHYDROmorphone 0.5 mg/mL TYPEWRITER MECHANIC CLINICIAN DOSE 0.2 mg 0.2 mg INTRAVENOUS [...] 0829 Peripheral Nerve Block ?RECENT LABSRecent Labs 6 100 P 4.4 -- --MG 1.3* -- --CA 7.7* [...] staff: Dr. Junior: epidural in place, Hydromorphone TYPEWRITER MECHANIC, ToradolCV: Intermittent hypotension, no vasopressor requiredPulm: CTA [...] 01, 2017 : 5:54 AM PAGER/CONTACT #: [phone] Normal [facility] Magnesiumon 10-01-2017 Magnesium 2.1 mg/dL Normal 1.7-2.6 [facility] Comment on above: Performed By: #### P T, PTT, AMYL, CMP, LIPA, PHOS ####[place] [address]#### TRANSF ####[facility] [address] [place] [phone] Magnesium 1.3 mg/dL Low 1.7-2.6 [facility] Comment on above: Performed By: #### P T, PTT, AMYL, CMP, LIPA, PHOS ####[place] [phone]#### TRANSF ####[facility] [address] [place] [phone] NURSING PROGon 10-01-2017 NURSING PROG HNO ID: [id number] thor: Cee (Rn) MOUSTAPHA Dialervice: (none)Author Type: Registered NurseType: Nursing Progress NoteFiled: 10/01/2017 7:58 PMNote Text: Nursing Progress NotePatient Name: Rocio JacksonN: [id number] Location: /EW-UKT-63 ___Daily Note:1900: Bedside report received from previous shift RN.This note was completed by: Cee Dial RN [facility] NURSING PROG HNO ID: [id number] thor: Marysol KenRn) Kimberli RNService: Critical CareAuthor Type: Registered NurseType: Nursing Progress NoteFiled: 10/01/2017 1:35 PMNote Text: Nursing Progress NotePatient Name: Rocio JacksonN: [id number] Location: [facility]/TY-HRV-04 ___Daily Note:0715-bedside report received from Reed BATEMAN.07- surgical team at bedside to assess patient. 1 L LR bolus ordered forhypotension.1125- Dr. Raya text paged SICU 7 D.F.-- Patient's SBP continues to remainlow after 2 fluid boluses, Dr. Boothe asked that I page pain management tosee if it would be appropriate to decrease the basal rate on his epidural.Thank you, Laura BATEMAN [phone] . Dr. Raya returned page, will place order todecrease basal rate of epidural to 4cc/hr.1330- Dr. Brown text paged SICU 7 D.F.-- patient's urine output has hxtp90es/hr x2 hours. Blood pressure has improved, we decreased the basal rateof his epidural. Also, he would like throat spray, his throat is sore[place], [place] [phone] This note was completed by: Marysol Ag RN [facility] NURSING PROG HNO ID: [id number] thor: Radha Ndiaye NsService: (none)Author Type: (none)Type: Nursing Progress NoteFiled: 10/01/2017 6:01 AMNote Text: Nursing Progress NotePatient Name: Rocio HayesN: [id number] Location: [place] [address]/PE-XYE-43 ___Daily Note:1909- Report complete. VSS on 6L [...] changes, see flowsheet.Labs and amylase drawn and [id number]- MD notified of low magnesium level, waiting for mag replacement tocome up from [id number]- Report given to day shift nurseThis note was completed by: Reed Rincon RN [facility] NUTRITIONon 10-01-2017 NUTRITION HNO ID: [id number] thor: Bailey Lojae: Nutrition TherapyAuthor Type: Registered DietitianType: NutritionFiled: 10/01/2017 [...] mass 09/30, who was admitted to the [facility] further care.Present Diet Order: NPO and Tube [...] 81 kgResting Metabolic Rate: 1599Estimated kilocalorie needs: 5953-1088 kilocalories determined by 20-25kcal/kgEstimated protein needs: 105-138 grams determined by 1.3-1.7 g/kg DosingweightEstimated fluid needs: 2476-4177 milliliters based on 1 mL per kcalNUTRITION [...] lb 12.7 oz) SpO2 95% BMI 27.19 kg/j0Lomyff Labs GLUC 145*BUN 20CREAT 0.78NA 140K 4.8CHLOR [...] (TORADOL) 15 mg INTRAVENOUS q 6 HHYDROmorphone TYPEWRITER MECHANIC 0.5 mg/mL in NaCl 0.9% 100 mL INTRAVENOUS CONTINUOUSHYDROmorphone 0.5 mg/mL TYPEWRITER MECHANIC CLINICIAN DOSE 0.2-0.4 mg 0.2-0.4 mgINTRAVENOUS (PACU) PRNHYDROmorphone 0.5 mg/mL TYPEWRITER MECHANIC CLINICIAN DOSE 0.2 mg 0.2 mg INTRAVENOUS [...] October 01, 2017 : 1:49 PM PAGER: [phone] further assistance and weekends please page the Group [phone] [facility] PROGRESSon 10-01-2017 PROGRESS HNO ID: [id number] thor: Rick Diaze: Critical CareAuthor Type: PhysicianType: Progress NotesFiled: 10/01/2017 [...] theabove surgeryNeuro:- Analgesia: Tylenol, toradol/Motrin, bupivacaine, dilaudid TYPEWRITER MECHANIC onceepidural removed- Anxiety/Sedation: NoneCardiovascular:- ASA 162- statin- [...] discussed with ICU Staff Dr. Boothe.Kolby Brown MDGenetoledo hospital Surgery[C]: [phone] [P]: 81149Wlio: 10/01/2017Time: 9:59 AMSubjective:Interval Events: NAEON. Pain controlled. Thirsty. Slept ok.Physical Exam:BP 110/88 Pulse 87 Temp 37.4 ?C (99.3 ?F) (Oral) Resp 17 Ht 172.7cm (5' 7.99 ) Wt 81.1 kg (178 lb 12.7 oz) SpO2 97% BMI 27.19 kg/k8NESGTSJ: Well appearing 62 year old male in no distressNEURO: AAox3, TJQ61DYMIN: Corpak/NGT in placeCHEST: nonlabored breathing on RA. [...] 2.0* 2.0* 1.5*Intake and Output:Date 09/30/17699 - 10/01/1765810/01/17699 - 10/02/17 0659Shift 4416-5350 3285-6112 7076-9459 24 Hour Total 0815-2667 4902-04340675-7872 24 Hour TotalINTAKE IV 3240.1 1967 5207.1 IVPB 28.1 28.1 LR 3211966 5179 [...] BMs 0 x 0 x Shift Total 712 449 7882 40 40Weight (kg) 81.1 81.1 81.1 81.1 [...] (MOTRIN) 800 mg ORAL q 8 HHYDROmorphone TYPEWRITER MECHANIC 0.5 mg/mL in NaCl 0.9% 100 mL INTRAVENOUS CONTINUOUSHYDROmorphone 0.5 mg/mL TYPEWRITER MECHANIC CLINICIAN DOSE 0.2-0.4 mg 0.2-0.4 mgINTRAVENOUS (PACU) PRNHYDROmorphone 0.5 mg/mL TYPEWRITER MECHANIC CLINICIAN DOSE 0.2 mg 0.2 mg INTRAVENOUS [...] 5 mg tab Take by mouth once daily.[facility] STAFF PHYSICIAN SUPERVISING RESIDENTI have reviewed the [...] to surgical floor whenbed available. SIGNATURE: Rick Boothe MDDATE of SERVICE: 10/01/2017TIME of SERVICE: 1:30 PM [facility] PROGRESS HNO ID: [id number] thor: Michael Cedillo) AugustinService: General SurgeryAuthor Type: [...] pressures are betterContinue EpiduralCaleb MD JaneGeneral Surgery, [id number] Pager: [phone], General Surgery Pager [phone]/11/13 9:19 AMPlease page [phone] on weekends and between 6 PM and 6 AM.SubjectiveINTERVAL HPI :Acute events overnight: none. Pain: w/c. Nausea: No. Vomiting: No. Flatus:No. Bowel movement: No. No other complaints.ObjectivePHYSICAL EXAM:General Appearance: in bed in NADLungs: nonlabored breathingAbdomen: soft, appropriately-tender, non-distendedIncisions:small amount of blood on dressingDrains:serosang x2Labs:CBC, BMP, MG, PHOSRecent Labs 321[address] [id number]/02/18035308/31/1803WBC 8.38 8.24 7.14 7.49 4.87 4.43 4.93HB [...] (MOTRIN) 800 mg ORAL q 8 HHYDROmorphone TYPEWRITER MECHANIC 0.5 mg/mL in NaCl 0.9% 100 mL INTRAVENOUS CONTINUOUSHYDROmorphone 0.5 mg/mL TYPEWRITER MECHANIC CLINICIAN DOSE 0.2-0.4 mg 0.2-0.4 mgINTRAVENOUS (PACU) PRNHYDROmorphone 0.5 mg/mL TYPEWRITER MECHANIC CLINICIAN DOSE 0.2 mg 0.2 mg INTRAVENOUS q 6 HPRNinsulin lispro injection (rapid acting) (HumaLOG) SUBCUTANEOUS q 6 Hheparin 5,000 Units injection 5,000 Units SUBCUTANEOUS q 12 Henoxaparin 40 mg injection (LOVENOX) 40 mg SUBCUTANEOUS DAILYmetoclopramide HCl 10 mg injection (REGLAN) 10 mg INTRAVENOUS q 6 H PRN Normal [facility] Phosphoruson 10-01-2017 Phosphate 3.0 mg/dL Normal 2.5-4.5 [facility] Comment on above: Performed By: #### P T, PTT, AMYL, CMP, LIPA, PHOS ####[facility] [place], [place] [phone]#### TRANSF ####[facility] [address] [place], [place] [phone] Phosphate 4.4 mg/dL Normal 2.5-4.5 [facility] Comment on above: Performed By: #### P T, PTT, AMYL, CMP, LIPA, PHOS ####[facility] [place], [place] [phone]#### TRANSF ####[facility] [place], [place] [phone] THERAPY NTon 10-01-2017 THERAPY NT HNO ID: [id number] thor: Son Salgado (Pt) ChandanaService: Physical TherapyAuthor Type: Physical TherapistType: Therapy (PT/OT/Speech/Resp)Filed: 10/01/2017 6:13 PMNote Text:Physical Therapy EvaluationSERVICE DATE: 10/01/2017SERVICE TIME: 1010 to 1045ROOM: [place]-OXI-79Eddkvrdoica Discharge Disposition: Acute RehabJustification For Post Acute Needs: Anticipate patient will tolerate 3hours of daily therapy at [facility];Cognition intact;Medically complex;Willing to participate;Livingthe community premorbidly;Good [...] Reduced mobility-other;Muscle Weakness (generalized)Interventions Provided: Evaluation;Therapeutic Activity (15083)$ Evaluation-Moderate (92061) Billed Units: 1 unitTherapeutic Activity (71930) Treatment Minutes: 101 unitSkilled Intervention(s): Instructed patient [...] mobility assessmentRelevant Past Medical History: HTN, DM, OR, richelle 08/11/17, ARF, refer tochart for full [...] Assistance;Other: See Comment (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, 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)Assistance Required With: Cleaning;Laundry;Meals;Other : See Comment(Shares IADL's)OBJECTIVE:CURRENT [...] 01, 2017 : 6:08 PM PAGER/CONTACT #: [phone] [facility] ANES Ila 09-30-2017 ANES POST HNO ID: [id number] thor: Bogdan Montenegro, IService: AnesthesiologyAuthor Type: AnesthesiologistType: Anesthesia PostOpFiled: 09/30/2017 5:54 PMNote Text:POST ANESTHESIA EVALUATION NOTESERVICE DATE: 09/30/2017SERVICE TIME: 5:52 PMDOB: 1955Vitals: 09/30/1816Temp: 36.7 ?C (98.1 ?F) 37.4 ?C (99.3 ?F) 09/30/18165Arterial BP 1: 155/78 154/76 154/77BP: 110/88 10/01/1807Pulse: [...] 30, 2017 : 5:52 PM PAGER/CONTACT #: [phone] [facility] ANES PREOPon 09-30-2017 ANES PREOP HNO ID: [id number] thor: Brian Mendezervice: AnesthesiologyAuthor Type: AnesthesiologistType: Anesthesia PreOpFiled: 09/30/2017 8:34 AMNote Text:REGIONAL ANESTHESIOLOGY DAY OF SURGERY NOTEPATIENT NAME: Rocio JacksonMRN: [id number]: 1955Procedure(s) (LRB):LAPAROSCOPY DIAGNOSTIC (N/A)WHIPPLE PROCEDURE, WITH PANCREATOJEJUNOST [...] with exertion.Denies change in functional capacity.Denies GERD.HTNNIDMHx OR s/p stent 2010; no issues sinceBaseline anemiaChronic [...] Date- ANGIOPLASTY HX 05/15/2011 2 stents s/p OR;[facility]- CHOLECYSTECTOMY 08/11/2017 [facility]- PICC LINE INSERT/CONSULT 08/16/2017No family history [...] by mouth once daily.Inpatient medications reviewed in [facility].I have interviewed and examined the patient. I have reviewed the medicalrecord and/or the pre-anesthesia evaluation, pertinent labs, and testresults.Significant changes in the patient's condition since the History andPhysical, not otherwise documented in primary service progress notes: NoTstev[facility] contains updated information obtained within 48 hours ofSurgery/Procedure.SIGNATUR E: Brian Orona MD PATIENT NAME: Rocio Sibley: September 30, 2017 : 8:29 AM PAGER/CONTACT #: [phone] (pager) Normal [facility] APTTon 09-30-2017 aPTT 25.9 s Normal 23.0-32.4 [facility] Comment on above: Result Comment: Unfr actionated [...] laboratory APTT reagent in use throughout the [facility]. Performed By: #### P T, PTT, AMYL, CMP, LIPA, PHOS ####[facility] [place], [place] [phone]#### TRANSF ####[facility] [address] [place], [place] [phone] BRIEF OP NOTon 09-30-2017 BRIEF OP NOT HNO ID: [id number] thor: Mundo Merchant)(Hist) ElvaisService: General SurgeryAuthor Type: ResidentType: Brief Op NoteFiled: 09/30/2017 5:02 PMNote Text:BRIEF OP NOTELOG ID: [id number]/Procedure Date: 09/30/2017Incision/Procedure Start Time: 9:40 AMIncision Close/Procedure End Time: 4:46 PMSurgeon(s)/Proceduralist(s ) and Slab Polisher(s):Surgeon(s) and Role: * Michael () Jolley - Primary * Mundo Merchant)(Hist) Kay [...] sameSIGNATURE: Mundo Villanueva MD PATIENT NAME: Rocio Sibley: September 30, 2017 : 4:58 PM PAGER/CONTACT #: Normal [facility] CBCon 09-30-2017 Erythrocyte distribution width Auto Ratio (RBC) 16.2 % High 11.5-15.0 [facility] Comment on above: Performed By: #### P T, PTT, AMYL, CMP, LIPA, PHOS ####[place] [address]#### TRANSF ####[place] [phone] Erythrocytes (RBC) 3.96 10*6/uL Low 4.20-6.00 [facility] Comment on above: Performed By: #### P T, PTT, AMYL, CMP, LIPA, PHOS ####[place] [address]#### TRANSF ####[place] [phone] Hematocrit (HCT) 30.7 % Low 39.0-51.0 [facility] Comment on above: Performed By: #### P T, PTT, AMYL, CMP, LIPA, PHOS ####[place] [address]#### TRANSF ####[place] [address]854-5755 Hemoglobin mass conc (Bld) 10.1 g/dL Low 13.0-17.0 [facility] Comment on above: Performed By: #### P T, PTT, AMYL, CMP, LIPA, PHOS ####[place] [address]#### TRANSF ####[place] [phone] MCH 25.5 pG Low 26.0-34.0 [facility] Comment on above: Performed By: #### P T, PTT, AMYL, CMP, LIPA, PHOS ####[place] [address]#### TRANSF ####[place] [phone] MCHC mass conc (RBC) 32.9 g/dL Normal 30.5-36.0 [facility] Comment on above: Performed By: #### P T, PTT, AMYL, CMP, LIPA, PHOS ####[place] [address]#### TRANSF ####[place] [phone] MCV 77.5 fL Low 80.0-100.0 [facility] Comment on above: Performed By: #### P T, PTT, AMYL, CMP, LIPA, PHOS ####[place] [address]#### TRANSF ####[place] [phone] Platelet mean volume (PMV) 9.4 fL Normal 9.0-12.7 [facility] Comment on above: Performed By: #### P T, PTT, AMYL, CMP, LIPA, PHOS ####[place] [address]#### TRANSF ####[place] [phone] Platelets 242 10*3/uL Normal 150-400 [facility] Comment on above: Performed By: #### P T, PTT, AMYL, CMP, LIPA, PHOS ####[place] [address]#### TRANSF ####[place] [phone] WBC (Leukocytes) 7.14 10*3/uL Normal 3.70-11.00 [facility] Comment on above: Performed By: #### P T, PTT, AMYL, CMP, LIPA, PHOS ####[place] [address]#### TRANSF ####[place] [phone] CBC and Differentialon 09-30 Abs Baso <0.03 Normal <0.11 [facility] Comment on above: Performed By: #### P T, PTT, AMYL, CMP, LIPA, PHOS ####[place] [address]#### TRANSF ####[phone] Abs Mcduffie 0.48 k/uL Normal <0.87 [facility] Comment on above: Performed By: #### P T, PTT, AMYL, CMP, LIPA, PHOS ####[place] [address]#### TRANSF ####[phone] Abs Neut 6.37 k/uL Normal 1.45-7.50 [facility] Comment on above: Performed By: #### P T, PTT, AMYL, CMP, LIPA, PHOS ####[place] [address]#### TRANSF ####[place] [address]854-5755 Basophils/100 WBC Auto (Bld) 0.0 % Normal [facility] Comment on above: Performed By: #### P T, PTT, AMYL, CMP, LIPA, PHOS ####[place] [address]#### TRANSF ####[place] [phone] DTYPE Auto Diff Normal [facility] Comment on above: Performed By: #### P T, PTT, AMYL, CMP, LIPA, PHOS ####[place] [address]#### TRANSF ####[place] [address] [place] [phone] Eosinophils 10*3/uL Normal <0.46 [facility] Comment on above: Performed By: #### P T, PTT, AMYL, CMP, LIPA, PHOS ####[place] [address]#### TRANSF ####[address] AvDerek [place] [phone] Eosinophils/100 leukocytes 0.0 % Normal [facility] Comment on above: Performed By: #### P T, PTT, AMYL, CMP, LIPA, PHOS ####[place] [address]#### TRANSF ####[place] [phone] Erythrocyte distribution width Auto Ratio (RBC) 15.9 % High 11.5-15.0 [facility] Comment on above: Performed By: #### P T, PTT, AMYL, CMP, LIPA, PHOS ####[place] [address]#### TRANSF ####[address] Av[address] [place] [phone] Erythrocytes (RBC) 3.70 10*6/uL Low 4.20-6.00 [facility] Comment on above: Performed By: #### P T, PTT, AMYL, CMP, LIPA, PHOS ####[place] [address]#### TRANSF ####[place] [address] [address] [place] [phone] Hematocrit (HCT) 28.9 % Low 39.0-51.0 [facility] Comment on above: Performed By: #### P T, PTT, AMYL, CMP, LIPA, PHOS ####[place] [address]#### TRANSF ####[place] [address]854[address]5755 Hemoglobin mass conc (Bld) 9.4 g/dL Low 13.0-17.0 [facility] Comment on above: Performed By: #### P T, PTT, AMYL, CMP, LIPA, PHOS ####[place] [address]#### TRANSF ####[place] [address]854-5755 Lymphocytes 1.39 10*3/uL Normal 1.00-4.00 [facility] Comment on above: Performed By: #### P T, PTT, AMYL, CMP, LIPA, PHOS ####[place] [address]#### TRANSF ####[place] [address]854-5755 Lymphocytes/100 leukocytes 16.9 % Normal [facility] Comment on above: Performed By: #### P T, PTT, AMYL, CMP, LIPA, PHOS ####[place] [address]#### TRANSF ####[place] [address]854-5755 MCH 25.4 pG Low 26.0-34.0 [facility] Comment on above: Performed By: #### P T, PTT, AMYL, CMP, LIPA, PHOS ####[place] [address]#### TRANSF ####[facility] [place] [phone] MCHC mass conc (RBC) 32.5 g/dL Normal 30.5-36.0 [facility] Comment on above: Performed By: #### P T, PTT, AMYL, CMP, LIPA, PHOS ####[address]#### TRANSF ####[place] [address]854-5755 MCV 78.1 fL Low 80.0-100.0 [facility] Comment on above: Performed By: #### P T, PTT, AMYL, CMP, LIPA, PHOS ####[place] [address]#### TRANSF ####[place] [address]854[address]5755 Monocytes/100 leukocytes 5.8 % Normal [facility] Comment on above: Performed By: #### P T, PTT, AMYL, CMP, LIPA, PHOS ####[place] [address]#### TRANSF ####[place] [address]854-5755 Neutrophils/100 WBC Auto (Bld) 77.3 % Normal [facility] Comment on above: Performed By: #### P T, PTT, AMYL, CMP, LIPA, PHOS ####[place] [address]#### TRANSF ####[place] [address]854-5755 Platelet mean volume (PMV) 9.7 fL Normal 9.0-12.7 [facility] Comment on above: Performed By: #### P T, PTT, AMYL, CMP, LIPA, PHOS ####[address]#### TRANSF ####[place] [phone] Platelets 231 10*3/uL Normal 150-400 [facility] Comment on above: Performed By: #### P T, PTT, AMYL, CMP, LIPA, PHOS ####[place] 165796-7110#### TRANSF ####[phone] WBC (Leukocytes) 8.24 10*3/uL Normal 3.70-11.00 [facility] Comment on above: Performed By: #### P T, PTT, AMYL, CMP, LIPA, PHOS ####[place] [id number]#### TRANSF ####[place] [phone] Comp Metabolic Panelon 09-30 Alanine aminotransferase (ALT) 46 U/L Normal 5-50 [facility] Comment on above: Performed By: #### P T, PTT, AMYL, CMP, LIPA, PHOS ####[place] [id number]#### TRANSF ####[place] [phone] Albumin 3.1 g/dL Low 3.5-5.0 [facility] Comment on above: Performed By: #### P T, PTT, AMYL, CMP, LIPA, PHOS ####[place] [id number]#### TRANSF ####[phone] Alkaline phosphatase (ALP) 91 U/L Normal 40-150 [facility] Comment on above: Performed By: #### P T, PTT, AMYL, CMP, LIPA, PHOS ####[place] [phone]#### TRANSF ####[place] [id number] Anion gap 11 mmol/L Normal 9-18 [facility] Comment on above: Performed By: #### P T, PTT, AMYL, CMP, LIPA, PHOS ####[place] [address]#### TRANSF ####[place] [address]854[address] Aspartate aminotransferase (AST) 48 U/L High 7-40 [facility] Comment on above: Performed By: #### P T, PTT, AMYL, CMP, LIPA, PHOS ####[place] [address]#### TRANSF ####[place] [address] Bilirubin (total) 0.5 mg/dL Normal 0.0-1.5 [facility] Comment on above: Performed By: #### P T, PTT, AMYL, CMP, LIPA, PHOS ####[place] [address]#### TRANSF ####[place] [address]854[address] Calcium 7.8 mg/dL Low 8.5-10.5 [facility] Comment on above: Performed By: #### P T, PTT, AMYL, CMP, LIPA, PHOS ####[place] [address]#### TRANSF ####[place] [address] Chloride 105 mmol/L Normal 98-110 [facility] Comment on above: Performed By: #### P T, PTT, AMYL, CMP, LIPA, PHOS ####[place] [phone]#### TRANSF ####[place] [address] CO2 24 mmol/L Normal 23-32 [facility] Comment on above: Performed By: #### P T, PTT, AMYL, CMP, LIPA, PHOS ####[place] [address]#### TRANSF ####[place] [address] Creatinine 0.65 mg/dL Low 0.70-1.40 [facility] Comment on above: Performed By: #### P T, PTT, AMYL, CMP, LIPA, PHOS ####[place] [address]#### TRANSF ####[place] [address]854[address] eGFR (non-black) mL/min/{1.73_m2} Normal >60 [facility] Comment on above: Performed By: #### P T, PTT, AMYL, CMP, LIPA, PHOS ####[place] [address]#### TRANSF ####[place] [address]854[address] Glucose mass conc 157 mg/dL High 65-100 [facility] Comment on above: Performed By: #### P T, PTT, AMYL, CMP, LIPA, PHOS ####[place] [address]#### TRANSF ####[place] [address]854[address] Potassium molar conc 4.9 mmol/L Normal 3.5-5.0 [facility] Comment on above: Performed By: #### P T, PTT, AMYL, CMP, LIPA, PHOS ####[place] [address]#### TRANSF ####[place] [address]854[address] Protein 5.8 g/dL Low 6.0-8.4 [facility] Comment on above: Performed By: #### P T, PTT, AMYL, CMP, LIPA, PHOS ####[place] [address]#### TRANSF ####[place] [address]854[address] Sodium 140 mmol/L Normal 135-146 [facility] Comment on above: Performed By: #### P T, PTT, AMYL, CMP, LIPA, PHOS ####[place] [address]#### TRANSF ####[place] [address]854[address] Urea nitrogen 18 mg/dL Normal 10-25 [facility] Comment on above: Performed By: #### P T, PTT, AMYL, CMP, LIPA, PHOS ####[place] [address]#### TRANSF ####[place] [address]854[address] Fibrinogenon 09-30-2017 Fibrinogen 257 mg/dL Normal 200-400 [facility] Comment on above: Performed By: #### P T, PTT, AMYL, CMP, LIPA, PHOS ####[place] [address]#### TRANSF ####[place] [address]854[address] Lactateon 09-30-2017 Lactate 2.3 mmol/L High 0.4-2.0 [facility] Comment on above: Performed By: #### P T, PTT, AMYL, CMP, LIPA, PHOS ####[facility] [place], [place] [phone]#### TRANSF ####[facility] [address] [place], [place] [phone] NURSING PROGon 09-30-2017 NURSING PROG HNO ID: [id number] thor: Sandrita (Rn) Bhupinder Guerra: (none)Author Type: Registered NurseType: Nursing Progress NoteFiled: 09/30/2017 4:15 PMNote Text: Nursing Progress NotePatient Name: Rocio HayesN: [id number] Location: /[id number]-[id number] ____Daily Note:1043- family updated via pager [id number]- family updated vis pager [id number]- family updated via pager [id number]- family updated via pager [id number]- family updated via pager [id number] Family update via pager [id number] family notified of closure start time. Requested family to return Rajat waiting roomThis note was completed by: Sandrita Guerra RN [facility] NURSING PROG HNO ID: [id number] thor: Kevin Us (Rn) Bhupinder Beltran: (none)Author Type: Registered NurseType: Nursing Progress NoteFiled: 09/30/2017 9:46 AMNote Text: Nursing Progress NotePatient Name: Rocio JacksonN: [id number] Location: /[id number]-[id number] ____ Patient's family updated at 9:44 AM about status of procedure per MD Ainsley.This note was completed by: Kevin Beltran RN [facility] NURSING PROG HNO ID: [id number] thor: Mirian (Rn) Milvia Collins, MOUSTAPHAervice: NursingAuthor Type: Registered NurseType: Nursing Progress [...] 15 degree and side rails up X2. [facility] OPERATIVE NOon 09-30-2017 OPERATIVE NO HNO ID: [id number] thor: Michael Cedillo) AugustinService: General SurgeryAuthor Type: PhysicianType: Operative ReportFiled: 10/05/2017 7:03 PMNote Text:[facility] - Operative ReportFRISCH, DEANDOB: 1955 AGE: 62 SEX: MMRN: [id number] ACCTNUM: [id number] SVC: INTM LOCATION: [address] PHYSICIAN: GAEL LomeliATE OF PROCEDURE: 09/30/2017PREOPERATIVE DIAGNOSIS:1. Duodenal cancer.2. Gastric [...] pleasant 62-year-old male who was initiallyad[facility] to [facility] with intraabdominal abscesses afterhaving undergone a cholecystectomy on hind site. He underwent anEGD which revealed a duodenal cancer and [place]. He at the time of that admission [...] start time and the end time.Michael Jolley [facility]ept Of SurgeryTA:[id number]:02/2018jhD: 10/02/2017 17:34:33T: 10/03/2017 03:14:36Job #: [id number] [facility] PROCEDUREon 09-30-2017 PROCEDURE HNO ID: [id number] thor: Yrn Cedillo) Trishe: Pain ManagementAuthor Type: [...] 30, 2017 : 10:40 AM PAGER/CONTACT #: [id number] [facility] PT EDon 09-30-2017 PT ED HNO ID: [id number] thor: Celina (Rn) MOUSTAPHA Wagnerervice: NursingAuthor Type: Registered NurseType: Patient EducationFiled: 09/30/2017 8:51 AMNote Text:PATIENT EDUCATION TOPIC: PROCEDURE / SURGERY: Pre-op Teaching: SurgicalSafety PrinciplesPATIENT NAME: Rocio JacksonMRN: [id number] LOCATION: [place] [address]/[id number] S TO LEARNCOGNITIVE ABILITY: Alert and orientedMOTIVATION TO LEARN: EagerFAMILY SUPPORT: High - Very involved in pt careINSTRUCTION PROVIDED TO: Patient and family memberPATIENT LEARNS BEST BY: Individual InstructionFACTORS AFFECTING LEARNING: NonePHYSICAL LIMITATIONS AFFECTING LEARNING: Other Limitations MEMORY LOSSLEARNING RESPONSEDIAGNOSIS: ADULT: WHIPPLEPATIENT/FAMILY RESPONSE: Verbalizes understanding of: OZZ-PHGJDGMJTOVIBZGLEPFNY-Vc rrect action to take to follow pre-operative instructionsMETHOD OF INSTRUCTION: Individual instructionFOLLOW-UP PLAN: Complete - No need for follow-upINSTRUCTIONAL AIDS USED: NASUPPLEMENTAL MATERIAL PROVIDED TO PATIENT: NoneREFERRAL (RECOMMENDATION): NoneElectronically Signed By: Celina Wagner RN Normal [facility] Protimeon 09-30-2017 INR Coag RelTime (Bld) 1.2 {INR} Normal 0.9-1.3 [facility] Comment on above: Result Comment: Tayler min K Antagonist (VKA) Therapeutic Range: INR 2 to 3 (Target INR of 2.5)Note: For patients treated with VKA drugs, such as warfarin, the [place] [employer] 2012 Guideline recommends [...] al. Chest 2012, 141:7S-47SNishneto RA, et al. [facility] 2017, 70: 252-289 Performed By: #### P T, PTT, AMYL, CMP, LIPA, PHOS ####[place] [address] [place], [place] [phone]#### TRANSF ####[facility] [place], [place] [phone] PT Sec 12.2 sec Normal 9.7-13.0 [facility] Comment on above: Performed By: #### P T, PTT, AMYL, CMP, LIPA, PHOS ####[address] [phone]#### TRANSF ####[facility] [address] [place], [place] [phone] SURGICAL PATHOLOGYon 018 SURGICAL PATHOLOGY [facility]: [id number] Physician: MICHAEL JOLLEY MD FINAL DIAGNOSIS1. Duodenal [...] for malignancy. (Dr. Parker)Intraoperative diagnosis performed at [facility], [address] [place] [address] GROSS DESCRIPTIONA. Received fresh for frozen section [...] cmin greatest dimension. A photograph is taken. Rand Tacker sections aresubmitted as follows: D1 perpendicular proximal duodenal margin, M5tloxtmsypfweh distal duodenal margin, D3 pancreatic neck shave [...] minimally attached fibrofatty tissuewhich is grossly unremarkable. Rand Tacker sections are submitted asfollows: E1 perpendicular margins, [...] 0.7 cm.Sectioning does not reveal any masses. Rand Tacker sections aresubmitted as follows: G1 perpendicular proximal margin, G2 perpendiculardistal margin, G3 pylorus, G4 shave margin mucosal covered tissue withstaple line. BF/glw 10/01/2017 Gross examination performed at [facility], [address] [place] [address] of Report: 10/13/2017Date of Procedure: 09/30/2017Date of Receipt: 09/30/2017Submitted by: MICHAEL JOLLEY MDLocation: [id number] interpretation performed at [facility], [address] [facility] [address]. Normal [facility] Comment on above: Performed By: #### P T, PTT, AMYL, CMP, LIPA, PHOS ####[facility] [place], [place] [phone]#### TRANSF ####[facility] [address] [place], [place] [phone] Wound Culture/Stainon 2017 Wound Culture/Stain Smear Result [...] <=2 FVancomycin SUSCEPTIBLE 1 F Critically abnormal [facility] Comment on above: Performed By: #### P T, PTT, AMYL, CMP, LIPA, PHOS ####[place] [address] [place], [place] [phone]#### TRANSF ####[facility] [address] [place], [place] [phone] NURSING PROGon 09-25-2017 NURSING PROG HNO ID: [id number] thor: Zaira (Rn) Amanuel, RNService: NeurosurgeryAuthor Type: Registered NurseType: Nursing Progress NoteFiled: 09/29/2017 4:23 PMNote Text:PACC Nurse Progress NoteHistory AND Physical:PACC Visit Date: 7-94-27Lwqjlfhs HANDP Date: N/AED visit Date: N/AOutside HANDP [...] expected for cardiac optimization by Gerald Freeman, [facility] 2017 8:38 AMADDEND:Cardiac Optimization: Dr. Abreu, letter scanned in [facility] 09-29-17.Chart Check:Zackary Beverly 2017 3:05 PM [facility] ALLIED HEALTHon 09-24-2017 ALLIED HEALTH HNO ID: [id number] thor: Jennifer Win CtService: (none)Author Type: (none)Type: Allied HealthFiled: 09/24/2017 10:49 AMNote Text: Radiology Service Progress NotePATIENT NAME: Rocio HayesMarisa: [id number] OF SERVICE: September 24, 2017TIME: 10:48 AMPATIENT IDENTITY VERIFICATION COMPLETED USING TWO (2) METHODS: Patientconfirmed name verbally and ID band matches..PATIENT GENDER DATA: MalePATIENT RELEVANT IMPLANT DATA REVIEWED: Not ApplicableRADIOLOGY DEPARTMENT: CT; Exam(s) Completed: Pancreas and PelvisPERIPHERAL IV DATA: Site assessment: Clean,Dry and Intact, Sitedisposition DiscontinuedSIGNED BY: Jennifer Win CtAug 2017 10:48 AM Normal [facility] APTTon 09-24-2017 aPTT 24.9 s Normal 23.0-32.4 [facility] Comment on above: Result Comment: Unfr actionated [...] laboratory APTT reagent in use throughout the [facility]. Performed By: #### P T, PTT, AMYL, CMP, LIPA, PHOS ####[place] [phone]#### TRANSF ####[address] [phone] CA 19-9on 09-24-2017 CA 19-9 15 U/mL Normal <36 [facility] Comment on above: Result Comment: Test analyzed by the To DxI method. Performed By: #### P T, PTT, AMYL, CMP, LIPA, PHOS ####[place] [phone]#### TRANSF ####[address] [phone] CBC and Differentialon 09-24 Abs Baso <0.03 Normal <0.11 [facility] Comment on above: Performed By: #### P T, PTT, AMYL, CMP, LIPA, PHOS ####[place] [phone]#### TRANSF ####[address] [place] [phone] Abs Mcduffie 0.57 k/uL Normal <0.87 [facility] Comment on above: Performed By: #### P T, PTT, AMYL, CMP, LIPA, PHOS ####[place] [address]#### TRANSF ####[place] [address] Abs Neut 3.92 k/uL Normal 1.45-7.50 [facility] Comment on above: Performed By: #### P T, PTT, AMYL, CMP, LIPA, PHOS ####[place] [address]#### TRANSF ####[place] [address] Basophils/100 WBC Auto (Bld) 0.3 % Normal [facility] Comment on above: Performed By: #### P T, PTT, AMYL, CMP, LIPA, PHOS ####[place] [address]#### TRANSF ####[place] [address] DTYPE Auto Diff Normal [facility] Comment on above: Performed By: #### P T, PTT, AMYL, CMP, LIPA, PHOS ####[place] [address]#### TRANSF ####[place] [address] Eosinophils 0.34 10*3/uL Normal <0.46 [facility] Comment on above: Performed By: #### P T, PTT, AMYL, CMP, LIPA, PHOS ####[place] [address]#### TRANSF ####[place] [phone] Eosinophils/100 leukocytes 4.5 % Normal [facility] Comment on above: Performed By: #### P T, PTT, AMYL, CMP, LIPA, PHOS ####[place] [address]#### TRANSF ####[place] [address] Erythrocyte distribution width Auto Ratio (RBC) 16.2 % High 11.5-15.0 [facility] Comment on above: Performed By: #### P T, PTT, AMYL, CMP, LIPA, PHOS ####[place] [address]#### TRANSF ####[place] [address] Erythrocytes (RBC) 10*6/uL Normal <0.01 [facility] Comment on above: Performed By: #### P T, PTT, AMYL, CMP, LIPA, PHOS ####[place] [address]#### TRANSF ####[place] [address] Erythrocytes (RBC) 3.62 10*6/uL Low 4.20-6.00 [facility] Comment on above: Performed By: #### P T, PTT, AMYL, CMP, LIPA, PHOS ####[place] [address]#### TRANSF ####[place] [address] Erythrocytes (RBC) 0.0 /100 WBC Normal 0 [facility] Comment on above: Performed By: #### P T, PTT, AMYL, CMP, LIPA, PHOS ####[place] [address]#### TRANSF ####[place] [address] Hematocrit (HCT) 29.1 % Low 39.0-51.0 [facility] Comment on above: Performed By: #### P T, PTT, AMYL, CMP, LIPA, PHOS ####[place] [address]#### TRANSF ####[place] [address] Hemoglobin mass conc (Bld) 8.6 g/dL Low 13.0-17.0 [facility] Comment on above: Performed By: #### P T, PTT, AMYL, CMP, LIPA, PHOS ####[place] [address]#### TRANSF ####[place] [address] Lymphocytes 2.62 10*3/uL Normal 1.00-4.00 [facility] Comment on above: Performed By: #### P T, PTT, AMYL, CMP, LIPA, PHOS ####[place] [address]#### TRANSF ####[place] [address] Lymphocytes/100 leukocytes 35.0 % Normal [facility] Comment on above: Performed By: #### P T, PTT, AMYL, CMP, LIPA, PHOS ####[place] [address]#### TRANSF ####[place] [address] MCH 23.8 pG Low 26.0-34.0 [facility] Comment on above: Performed By: #### P T, PTT, AMYL, CMP, LIPA, PHOS ####[place] [address]#### TRANSF ####[place] [address] MCHC mass conc (RBC) 29.6 g/dL Low 30.5-36.0 [facility] Comment on above: Performed By: #### P T, PTT, AMYL, CMP, LIPA, PHOS ####[place] [address]#### TRANSF ####[place] [address] MCV 80.4 fL Normal 80.0-100.0 [facility] Comment on above: Performed By: #### P T, PTT, AMYL, CMP, LIPA, PHOS ####[address]#### TRANSF ####[place] [address] Monocytes/100 leukocytes 7.6 % Normal [facility] Comment on above: Performed By: #### P T, PTT, AMYL, CMP, LIPA, PHOS ####[address]#### TRANSF ####[place] [address]854-5755 Neutrophils/100 WBC Auto (Bld) 52.6 % Normal [facility] Comment on above: Performed By: #### P T, PTT, AMYL, CMP, LIPA, PHOS ####[address]#### TRANSF ####[place] [address] Platelet mean volume (PMV) 10.9 fL Normal 9.0-12.7 [facility] Comment on above: Performed By: #### P T, PTT, AMYL, CMP, LIPA, PHOS ####[place] [phone]#### TRANSF ####[place] [phone] Platelets 354 10*3/uL Normal 150-400 [facility] Comment on above: Performed By: #### P T, PTT, AMYL, CMP, LIPA, PHOS ####[place] [address]#### TRANSF ####[place] [phone] WBC (Leukocytes) 7.49 10*3/uL Normal 3.70-11.00 [facility] Comment on above: Performed By: #### P T, PTT, AMYL, CMP, LIPA, PHOS ####[place] [address]#### TRANSF ####[place] [phone] CEAon 09-24-2017 CEA 0.7 ng/mL Normal 0.0-2.9 [facility] Comment on above: Result Comment: Test analyzed by the [employer] DxI method. Performed By: #### P T, PTT, AMYL, CMP, LIPA, PHOS ####[place] [phone]#### TRANSF ####[place] [phone] CT PANCREAS/PELVIS W IVCONon 09-24-2017 CT PANCREAS/PELVIS [...] JUAREZ MD on Sep 25 2017 9:02AM [id number] Normal [facility] Comp Metabolic Panelon 09-24 Alanine aminotransferase (ALT) 38 U/L Normal 5-50 [facility] Comment on above: Performed By: #### P T, PTT, AMYL, CMP, LIPA, PHOS ####[place] [address]#### TRANSF ####[place] [address] Albumin 3.7 g/dL Normal 3.5-5.0 [facility] Comment on above: Performed By: #### P T, PTT, AMYL, CMP, LIPA, PHOS ####[place] [address]#### TRANSF ####[place] [address] Alkaline phosphatase (ALP) 160 U/L High 40-150 [facility] Comment on above: Performed By: #### P T, PTT, AMYL, CMP, LIPA, PHOS ####[place] [address]#### TRANSF ####[place] [address] Anion gap 12 mmol/L Normal 9-18 [facility] Comment on above: Performed By: #### P T, PTT, AMYL, CMP, LIPA, PHOS ####[place] [address]#### TRANSF ####[place] [address] Aspartate aminotransferase (AST) 37 U/L Normal 7-40 [facility] Comment on above: Performed By: #### P T, PTT, AMYL, CMP, LIPA, PHOS ####[place] [address]#### TRANSF ####[place] [phone] Bilirubin (total) 0.3 mg/dL Normal 0.0-1.5 [facility] Comment on above: Performed By: #### P T, PTT, AMYL, CMP, LIPA, PHOS ####[place] [address]#### TRANSF ####[place] [address]-5755 Calcium 9.7 mg/dL Normal 8.5-10.5 [facility] Comment on above: Performed By: #### P T, PTT, AMYL, CMP, LIPA, PHOS ####[place] [address]#### TRANSF ####[place] [address]854-5755 Chloride 98 mmol/L Normal 98-110 [facility] Comment on above: Performed By: #### P T, PTT, AMYL, CMP, LIPA, PHOS ####[place] [address]#### TRANSF ####[place] [address] CO2 28 mmol/L Normal 23-32 [facility] Comment on above: Performed By: #### P T, PTT, AMYL, CMP, LIPA, PHOS ####[place] [address]#### TRANSF ####[place] [address]854-5[address] Creatinine 0.68 mg/dL Low 0.70-1.40 [facility] Comment on above: Performed By: #### P T, PTT, AMYL, CMP, LIPA, PHOS ####[place] [address]#### TRANSF ####[place] [phone] eGFR (non-black) mL/min/{1.73_m2} Normal >60 [facility] Comment on above: Performed By: #### P T, PTT, AMYL, CMP, LIPA, PHOS ####[place] 165796-7110#### TRANSF ####[place] [address]854-5755 Glucose mass conc 110 mg/dL High 65-100 [facility] Comment on above: Performed By: #### P T, PTT, AMYL, CMP, LIPA, PHOS ####[place] [address]#### TRANSF ####[place] [address]854-5755 Potassium molar conc 4.7 mmol/L Normal 3.5-5.0 [facility] Comment on above: Performed By: #### P T, PTT, AMYL, CMP, LIPA, PHOS ####[place] [address]#### TRANSF ####[place] [address]854-5755 Protein 7.8 g/dL Normal 6.0-8.4 [facility] Comment on above: Performed By: #### P T, PTT, AMYL, CMP, LIPA, PHOS ####[address]#### TRANSF ####[place] [address]854-5755 Sodium 138 mmol/L Normal 135-146 [facility] Comment on above: Performed By: #### P T, PTT, AMYL, CMP, LIPA, PHOS ####[address]#### TRANSF ####[address], [place] [phone] Urea nitrogen 13 mg/dL Normal 10- [facility] Comment on above: Performed By: #### P T, PTT, AMYL, CMP, LIPA, PHOS ####[facility] [place], [place] [phone]#### TRANSF ####[facility] [place], [place] [phone] NURSING PROGon 09-24-2017 NURSING PROG HNO ID: [id number] thor: Nayeli Humphries (Rn) MOUSTAPHA Pelletierervice: RadiologyAuthor Type: Registered NurseType: Nursing Progress NoteFiled: 09/24/2017 10:26 AMNote Text: Radiology Service Progress NotePATIENT NAME: Rocio HayesN: [id number] OF SERVICE: September 24, 2017TIME: 10:25 AMPATIENT WEIGHT: 184 LBSPATIENT IDENTITY VERIFICATION COMPLETED USING TWO (2) METHODS: Patientconfirmed name verbally and Date of .PATIENT GENDER DATA: MaleCONTRAST INDUCED NEPHROPATHY RISK FACTORS: Patient age > 60 years,Diabetic: Yes. Current medication(s): Metformin. Patient currently hasinsulin pump?: No. and Home going recommendation given YesCREATININE:CreatinineDate Value Ref Range Xsjfbb7309/01/2017 0.54 (L) 0.70 - 1.40 mg/dL Final08/31/2017 0.56 (L) 0.70 - 1.40 mg/dL Final08/30/2017 0.59 (L) 0.70 - 1.40 mg/dL Final eGFR-All Other RacesDate Value Ref Range Rdnphc5809/01/2017 >60 >60 . Final eGFR- AmericanDate Value Ref Range Hvbpfx1709/01/2017 >60 >60 Final P.O.C.T. RESULTS: N/A September 24, 2017TREATMENT: No Hydration needed.ALLERGIES: Reviewed and unchangedCONTRAST ALLERGY: NO.IV SITE: Ambulatory: A peripheral IV was started in the Right forearmwith a diffusic cath: 20 gauge. A Saline lock was inserted per protocol.IV SITE APPEARANCE: Clean,Dry and IntactSIGNED BY: Curt Ferguson 2017 10:25 AM Normal [facility] Protimeon 09-24-2017 INR Coag RelTime (Bld) 1.1 {INR} Normal 0.9-1.3 [facility] Comment on above: Result Comment: Tayler min K Antagonist (VKA) Therapeutic Range: INR 2 to 3 (Target INR of 2.5)Note: For patients treated with VKA drugs, such as warfarin, the [place] [employer] 2012 Guideline recommends [...] of 3).Keegan GH, et al. Chest 2012, 141:7S-47SNishimivette RA, et al. JAC 2017, 70: 252-289 Performed By: #### P T, PTT, AMYL, CMP, LIPA, PHOS ####[phone]#### TRANSF ####[place] [address]100 [place] [phone] PT Sec 11.1 sec Normal 9.7-13.0 [facility] Comment on above: Performed By: #### P T, PTT, AMYL, CMP, LIPA, PHOS ####[place] [phone]#### TRANSF ####[place] [phone] Type and SCR (30D)on 018 ABO/RH(D) Positive Normal [facility] Comment on above: Performed By: #### P T, PTT, AMYL, CMP, LIPA, PHOS ####[facility] [place], [place] [phone]#### TRANSF ####[facility] [place], [place] [phone] Antibody Screen Negative Normal [facility] Comment on above: Performed By: #### P T, PTT, AMYL, CMP, LIPA, PHOS ####[address] [phone]#### TRANSF ####[place] [address] [place], [place] [phone] HOSPon 09-16-2017 HOSP Patient:Coleen JacksonLizbeth RN: Height:5' 8 (1.727 m)Weight:176 lb (79.833 [...] 29.1 % 09/24/2017 51.0 39.0Progress Notes ([facility] [address]):Michael Jolley MD 09/27/2017 12:29 PM SignedSURGERY PREOPERATIVE VISIT NOTEName: Rocio JacksonMedical Record: [id number] No.: [id number] Frisch is a 62 year old male [...] Date- ANGIOPLASTY HX 05/15/2011 2 stents s/p OR;[facility]- CHOLECYSTECTOMY 08/11/2017 [facility]- PICC LINE INSERT/CONSULT 08/16/2017SOCIAL HISTORY:Social HistorySubstance [...] Patient understands risk of medical complicationsincluding pneumonia, OR, UTI and . Patient expressed understanding andconsented to the surgery.The patient had an opportunity to ask additional questions that were answered.The patient expressed that they understood.A consent form was signed today.Prescriptions were explained and provided to the patient.Magalys Alvarez RNPrevious VersionProgress Notes ([facility]):Magalys Alvarez RN 09/23/2017 5:01 PM SignedPatient is scheduled for [place] on 09/30/[address] 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 Nurse unavailable. Awaitingreturn call from nurse.Dr. Irving Rock [address] [phone] Magalys Alvarez RN 09/24/2017 1:48 PM SignedReceived return call from [facility].Patient is pending a stress test on 09/28/2017. Dr. Abreu's office will sendcardiac stratification letter after testing completed.Per Dr. Jolley, patient is to hold Eliquis and Asa (last dose 09/23/2017). Normal [facility] CASE MANAGEMon 09-01-2017 CASE MANAGEM HNO ID: [id number] thor: Alexandrea Arreola) Thom, RNService: Care ManagementAuthor Type: Registered NurseType: Care Mgt Progress NoteFiled: 09/01/2017 11:42 AMNote Text:CARE MANAGEMENT DISCHARGE NOTESERVICE DATE: 09/01/2017SERVICE TIME: 11:02 AM LOS: 19 daysAdmission Date: 08/13/2017DISCHARGE ARRANGEMENT (list agency and phone number)half-way facilityProvider: [facility] SHETDJWPA ASSESSMENT:Caregiver is ready, willing and able to meet the patient's needs asrecommended by the inter-professional team? YesPatient's transition needs and plan for meeting these needs: SNFDoes the patient have an acute stroke diagnosis, or has the patient had astroke during this admission? NoHANDOFF COMMUNICATION:SNFTRANSPORTAT ION ARRANGEMENTS:Car Sisters will drive pt to the SNFADDITIONAL CONTACT RESOURCES: nonePlan is for dc today to [facility] in [place].The pt and his sisters have verbalized agreement with this plan.SIGNATURE: Alxeandrea Tomas RN PATIENT NAME: Rocio VizcarraTE: September 01, 2017 : 11:02 AM PAGER/CONTACT #: [phone] Normal [facility] CBC and Differentialon 09-01 Abs Baso <0.03 Normal <0.11 [facility] Comment on above: Performed By: #### P T, PTT, AMYL, CMP, LIPA, PHOS ####[facility] [place], [place] [phone]#### TRANSF ####[facility] [address] [place], [place] [phone] Abs Mcduffie 0.44 k/uL Normal <0.87 [facility] Comment on above: Performed By: #### P T, PTT, AMYL, CMP, LIPA, PHOS ####[place] [address]#### TRANSF ####[place] [address] Abs Neut 2.43 k/uL Normal 1.45-7.50 [facility] Comment on above: Performed By: #### P T, PTT, AMYL, CMP, LIPA, PHOS ####[place] [address]#### TRANSF ####[place] [address] Basophils/100 WBC Auto (Bld) 0.4 % Normal [facility] Comment on above: Performed By: #### P T, PTT, AMYL, CMP, LIPA, PHOS ####[place] [address]#### TRANSF ####[place] [address] DTYPE Auto Diff Normal [facility] Comment on above: Performed By: #### P T, PTT, AMYL, CMP, LIPA, PHOS ####[place] [address]#### TRANSF ####[place] [address] Eosinophils 0.26 10*3/uL Normal <0.46 [facility] Comment on above: Performed By: #### P T, PTT, AMYL, CMP, LIPA, PHOS ####[place] [address]#### TRANSF ####[place] [address] Eosinophils/100 leukocytes 5.3 % Normal [facility] Comment on above: Performed By: #### P T, PTT, AMYL, CMP, LIPA, PHOS ####[place] [phone]#### TRANSF ####[place] [address] Erythrocyte distribution width Auto Ratio (RBC) 15.3 % High 11.5-15.0 [facility] Comment on above: Performed By: #### P T, PTT, AMYL, CMP, LIPA, PHOS ####[place] [address]#### TRANSF ####[place] [address] Erythrocytes (RBC) 2.93 10*6/uL Low 4.20-6.00 [facility] Comment on above: Performed By: #### P T, PTT, AMYL, CMP, LIPA, PHOS ####[place] [address]#### TRANSF ####[place] [address] Hematocrit (HCT) 25.0 % Low 39.0-51.0 [facility] Comment on above: Performed By: #### P T, PTT, AMYL, CMP, LIPA, PHOS ####[place] [address]#### TRANSF ####[place] [address] Hemoglobin mass conc (Bld) 7.9 g/dL Low 13.0-17.0 [facility] Comment on above: Performed By: #### P T, PTT, AMYL, CMP, LIPA, PHOS ####[place] [address]#### TRANSF ####[place] [address]854[address] Lymphocytes 1.72 10*3/uL Normal 1.00-4.00 [facility] Comment on above: Performed By: #### P T, PTT, AMYL, CMP, LIPA, PHOS ####[place] [address]#### TRANSF ####[place] [address]854[address] Lymphocytes/100 leukocytes 35.3 % Normal [facility] Comment on above: Performed By: #### P T, PTT, AMYL, CMP, LIPA, PHOS ####[place] [address]#### TRANSF ####[place] [address]854[address] MCH 27.0 pG Normal 26.0-34.0 [facility] Comment on above: Performed By: #### P T, PTT, AMYL, CMP, LIPA, PHOS ####[place] [address]#### TRANSF ####[place] [address]854[address] MCHC mass conc (RBC) 31.6 g/dL Normal 30.5-36.0 [facility] Comment on above: Performed By: #### P T, PTT, AMYL, CMP, LIPA, PHOS ####[place] [address]#### TRANSF ####[place] [address] MCV 85.3 fL Normal 80.0-100.0 [facility] Comment on above: Performed By: #### P T, PTT, AMYL, CMP, LIPA, PHOS ####[place] [address]#### TRANSF ####[place] [address] Monocytes/100 leukocytes 9.0 % Normal [facility] Comment on above: Performed By: #### P T, PTT, AMYL, CMP, LIPA, PHOS ####[place] [address]#### TRANSF ####[address] Av[place] [phone] Neutrophils/100 WBC Auto (Bld) 50.0 % Normal [facility] Comment on above: Performed By: #### P T, PTT, AMYL, CMP, LIPA, PHOS ####[place] [address]#### TRANSF ####[place] [phone] Platelet mean volume (PMV) 9.7 fL Normal 9.0-12.7 [facility] Comment on above: Performed By: #### P T, PTT, AMYL, CMP, LIPA, PHOS ####[place] [address]#### TRANSF ####[place] [phone] Platelets 495 10*3/uL High 150-400 [facility] Comment on above: Performed By: #### P T, PTT, AMYL, CMP, LIPA, PHOS ####[place] [address]#### TRANSF ####[place] [phone] WBC (Leukocytes) 4.87 10*3/uL Normal 3.70-11.00 [facility] Comment on above: Performed By: #### P T, PTT, AMYL, CMP, LIPA, PHOS ####[place] [phone]#### TRANSF ####[address] [place] [phone] CNDSon 09-01-2017 CNDS HNO ID: [id number] thor: Allegra Garcia) MiglionicoService: ColorectalAuthor Type: Physician AssistantType: Discharge SummariesFiled: 09/02/2017 11:51 AMNote Text:DISCHARGE SUMMARYPATIENT NAME: Rocio Jackson ADMISSION DATE: 08/13/2017MRN: [id number] DISCHARGE DATE: 09/01/2017ATTENDING PHYSICIAN: Michael Cedillo) AugustinREASON FOR HOSPITALIZATION: Partial duodenal obstruction due to [...] Cardiology, GastroenterologyPATIENT CONDITION AT DISCHARGE: StableDISCHARGE DISPOSITION: Assisted FacilityINFORMATION PROVIDED TO PATIENT:Instructions for My Care at Home or Healthcare FacilityThese instructions explain what you or your director of critical care need to do tocontinue your care at home or at another healthcare facility? Please go over these instructions with your nurse and director of critical care.? 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 ironworker as out ptAll questions answered.Subjective:Doing well no [...] Date- ANGIOPLASTY HX 05/15/2011 2 stents s/p OR;[facility]- CHOLECYSTECTOMY 08/11/2017 [facility]- PICC LINE INSERT/CONSULT 08/16/2017Prior to Admission [...] acting) (HumaLOG) SUBCUTANEOUS w MEALSAND HSphenol 1 Candor (CHLORASEPTIC) 1 Candor MUCOUS MEMBRANE (TOPICAL MOUTH ANDTHROAT) q 2 [...] INTRAVENOUS q 2 H Josselin Mayorga MD CardiologyToday's Date: September 01, 2017Time: 10:00 AM Normal [facility] Comp Metabolic Panelon 09-01 Alanine aminotransferase (ALT) 74 U/L High 5-50 [facility] Comment on above: Performed By: #### P T, PTT, AMYL, CMP, LIPA, PHOS ####[place] [phone]#### TRANSF ####[place] [address] Albumin 2.9 g/dL Low 3.5-5.0 [facility] Comment on above: Performed By: #### P T, PTT, AMYL, CMP, LIPA, PHOS ####[address]#### TRANSF ####[place] [address] Alkaline phosphatase (ALP) 490 U/L High 40-150 [facility] Comment on above: Performed By: #### P T, PTT, AMYL, CMP, LIPA, PHOS ####[place] [address]#### TRANSF ####[place] [address] Anion gap 7 mmol/L Low 9-18 [facility] Comment on above: Performed By: #### P T, PTT, AMYL, CMP, LIPA, PHOS ####[place] [phone]#### TRANSF ####[place] [address] Aspartate aminotransferase (AST) 93 U/L High 7-40 [facility] Comment on above: Performed By: #### P T, PTT, AMYL, CMP, LIPA, PHOS ####[place] [address]#### TRANSF ####[place] [address] Bilirubin (total) 0.4 mg/dL Normal 0.0-1.5 [facility] Comment on above: Performed By: #### P T, PTT, AMYL, CMP, LIPA, PHOS ####[place] [address]#### TRANSF ####[place] [address] Calcium 8.0 mg/dL Low 8.5-10.5 [facility] Comment on above: Performed By: #### P T, PTT, AMYL, CMP, LIPA, PHOS ####[place] [address]#### TRANSF ####[place] [address] Chloride 101 mmol/L Normal 98-110 [facility] Comment on above: Performed By: #### P T, PTT, AMYL, CMP, LIPA, PHOS ####[place] [address]#### TRANSF ####[place] [address] CO2 29 mmol/L Normal 23-32 [facility] Comment on above: Performed By: #### P T, PTT, AMYL, CMP, LIPA, PHOS ####[place] [address]#### TRANSF ####[place] [phone] Creatinine 0.54 mg/dL Low 0.70-1.40 [facility] Comment on above: Performed By: #### P T, PTT, AMYL, CMP, LIPA, PHOS ####[place] [address]796[address]71[address]#### TRANSF ####[place] [address] eGFR (non-black) mL/min/{1.73_m2} Normal >60 [facility] Comment on above: Performed By: #### P T, PTT, AMYL, CMP, LIPA, PHOS ####[place] [address]796[address]71[address]#### TRANSF ####[place] [address] Glucose mass conc 149 mg/dL High 65-100 [facility] Comment on above: Performed By: #### P T, PTT, AMYL, CMP, LIPA, PHOS ####[address]#### TRANSF ####[place] [address] Potassium molar conc 4.3 mmol/L Normal 3.5-5.0 [facility] Comment on above: Performed By: #### P T, PTT, AMYL, CMP, LIPA, PHOS ####[place] [phone]#### TRANSF ####[place] [address] Protein 6.6 g/dL Normal 6.0-8.4 [facility] Comment on above: Performed By: #### P T, PTT, AMYL, CMP, LIPA, PHOS ####[phone]#### TRANSF ####[place] [address] Sodium 137 mmol/L Normal 135-146 [facility] Comment on above: Performed By: #### P T, PTT, AMYL, CMP, LIPA, PHOS ####[place] [address]#### TRANSF ####[place] [address] Urea nitrogen 11 mg/dL Normal 10-25 [facility] Comment on above: Performed By: #### P T, PTT, AMYL, CMP, LIPA, PHOS ####[place] [address]#### TRANSF ####[place] [address] Magnesiumon 09-01-2017 Magnesium 2.3 mg/dL Normal 1.7-2.6 [facility] Comment on above: Performed By: #### P T, PTT, AMYL, CMP, LIPA, PHOS ####[place] [address]#### TRANSF ####[place] [address] NURSING PROGon 09-01-2017 NURSING PROG HNO ID: [id number] thor: Sabrina (Rn) MOUSTAPHA Curtiservice: (none)Author Type: Registered NurseType: Nursing Progress NoteFiled: 09/01/2017 11:54 AMNote Text: Nursing Progress NotePatient Name: Rocio JacksonPETRONA: [id number] Location: [address]/[id number] ____Daily Note:1153- Surgery noémarvin López Jackson in room PK336. Went to flush biliary drainand large amount of output started draining from site. Also does patientneed phosphate prior to d/c? Thanks! 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 Patient to use [facility] Bedside Delivery - N/A2. If fax, patient would like us to fax prescriptions to [facility] a. Pharmacy: b. Location: c. Phone:3. Insurance card on file - N/A4. Credit card for payment - N/A [facility] PROGRESSon 09-01-2017 PROGRESS HNO ID: [id number] thor: Kayleen (Res) BenliceService: General SurgeryAuthor Type: ResidentType: Progress NotesFiled: 09/01/2017 7:46 AMNote Text:PROGRESS NOTES - SURGICAL SERVICESPATIENT NAME: Rocio Boudreaux: [id number] HISTORY OF PRESENT ILLNESS:Resting well. No acute [...] discharge-DC today, with C or to SNFSIGNATURE: GAEL JohnstonATE: September 01, 2017TIME: 7:46 AM Normal [facility] Phosphoruson 09-01-2017 Phosphate 2.0 mg/dL Low 2.5-4.5 [facility] Comment on above: Performed By: #### P T, PTT, AMYL, CMP, LIPA, PHOS ####[facility] [place], [place] [phone]#### TRANSF ####[facility] [address] [place], [place] [phone] ALLIED HEALTHon 08-31-2017 ALLIED HEALTH HNO ID: [id number] thor: Lauren Rudolph (Chaplain)Service: Spiritual CareAuthor Type: ChaplainType: Allied HealthFiled: 08/31/2017 11:01 AMNote Text:SPIRITUAL CARE PROGRESS NOTESERVICE DATE: 08/31/2017SERVICE TIME: 10:15 [facility] provided spiritual care visit with patient per request forSpiritual Care consultation. Patient was present in the room with 2family members. I provided active listening and introduction of ourservices as needed.Patient was introduced to the resources offered through Spiritual Care andHealing Services, and informed of the availability of a explosive ordnance disposal specialist shouldfurther needs arise. There were no further needs at this time.To contact the Spiritual Care Department: Please call [phone], [address] aSpiritual Care Consult (or page the explosive ordnance disposal specialist on-call at [phone] [facility]).SIGNATURE: Chaplain [place] PATIENT NAME: Rocio Maryjo: August 31, 2017 : 10:59 AM PAGER/CONTACT #: [phone] [facility] CASE MANAGEMon 08-31-2017 CASE MANAGEM HNO ID: [id number] thor: MOUSTAPHA Staley Rnervice: Care ManagementAuthor Type: Registered NurseType: Care Mgt Progress NoteFiled: 08/31/2017 2:12 PMNote Text:CARE MANAGEMENT PROGRESS NOTESERVICE DATE: 08/31/2017SERVICE TIME: 12:14 PM LOS: 18 daysNeeds Prior to Discharge: To Be DeterminedThis CM met with Pt and his sisters at bedside.Per Pt and his sisters, the plan is for [facility] at dc.Medical Clearance is needed.Per discussion with SAIMA Briggs, the plan is for dc tomorrow,SIGNATURE: Alexandrea Tomas RN PATIENT NAME: Rocio Sibley: August 31, 2017 : 12:12 PM PAGER/CONTACT #: [phone] Normal [facility] CBC and Differentialon 08-31 Abs Baso <0.03 Normal <0.11 [facility] Comment on above: Performed By: #### P T, PTT, AMYL, CMP, LIPA, PHOS ####[place] [address]#### TRANSF ####[place] [address] Abs Mcduffie 0.30 k/uL Normal <0.87 [facility] Comment on above: Performed By: #### P T, PTT, AMYL, CMP, LIPA, PHOS ####[place] [address]#### TRANSF ####[place] [address] Abs Neut 2.32 k/uL Normal 1.45-7.50 [facility] Comment on above: Performed By: #### P T, PTT, AMYL, CMP, LIPA, PHOS ####[place] [address]#### TRANSF ####[place] [address] Basophils/100 WBC Auto (Bld) 0.5 % [facility] Comment on above: Performed By: #### P T, PTT, AMYL, CMP, LIPA, PHOS ####[place] [address]#### TRANSF ####[place] [address] DTYPE Auto Diff [facility] Comment on above: Performed By: #### P T, PTT, AMYL, CMP, LIPA, PHOS ####[place] [address]#### TRANSF ####[place] [address] Eosinophils 0.23 10*3/uL Normal <0.46 [facility] Comment on above: Performed By: #### P T, PTT, AMYL, CMP, LIPA, PHOS ####[place] [address]#### TRANSF ####[place] [address] Eosinophils/100 leukocytes 5.2 % Normal [facility] Comment on above: Performed By: #### P T, PTT, AMYL, CMP, LIPA, PHOS ####[place] [address]#### TRANSF ####[place] [address] Erythrocyte distribution width Auto Ratio (RBC) 15.2 % High 11.5-15.0 [facility] Comment on above: Performed By: #### P T, PTT, AMYL, CMP, LIPA, PHOS ####[place] [address]#### TRANSF ####[place] [address] Erythrocytes (RBC) 2.94 10*6/uL Low 4.20-6.00 [facility] Comment on above: Performed By: #### P T, PTT, AMYL, CMP, LIPA, PHOS ####[place] [address]#### TRANSF ####[place] [address] Hematocrit (HCT) 25.1 % Low 39.0-51.0 [facility] Comment on above: Performed By: #### P T, PTT, AMYL, CMP, LIPA, PHOS ####[address]#### TRANSF ####[phone] Hemoglobin mass conc (Bld) 8.0 g/dL Low 13.0-17.0 [facility] Comment on above: Performed By: #### P T, PTT, AMYL, CMP, LIPA, PHOS ####[place] [address]#### TRANSF ####[place] [address] Lymphocytes 1.56 10*3/uL Normal 1.00-4.00 [facility] Comment on above: Performed By: #### P T, PTT, AMYL, CMP, LIPA, PHOS ####[place] [address]#### TRANSF ####[place] [address] Lymphocytes/100 leukocytes 35.2 % Normal [facility] Comment on above: Performed By: #### P T, PTT, AMYL, CMP, LIPA, PHOS ####[place] [address]#### TRANSF ####[place] [address] MCH 27.2 pG Normal 26.0-34.0 [facility] Comment on above: Performed By: #### P T, PTT, AMYL, CMP, LIPA, PHOS ####[place] [address]#### TRANSF ####[place] [phone] MCHC mass conc (RBC) 31.9 g/dL Normal 30.5-36.0 [facility] Comment on above: Performed By: #### P T, PTT, AMYL, CMP, LIPA, PHOS ####[place] [address]#### TRANSF ####[place] [phone] MCV 85.4 fL Normal 80.0-100.0 [facility] Comment on above: Performed By: #### P T, PTT, AMYL, CMP, LIPA, PHOS ####[place] [address]#### TRANSF ####[place] [address] Monocytes/100 leukocytes 6.8 % Normal [facility] Comment on above: Performed By: #### P T, PTT, AMYL, CMP, LIPA, PHOS ####[place] [address]#### TRANSF ####[phone] Neutrophils/100 WBC Auto (Bld) 52.3 % Normal [facility] Comment on above: Performed By: #### P T, PTT, AMYL, CMP, LIPA, PHOS ####[place] [address]#### TRANSF ####[place] [phone] Platelet mean volume (PMV) 9.3 fL Normal 9.0-12.7 [facility] Comment on above: Performed By: #### P T, PTT, AMYL, CMP, LIPA, PHOS ####[place] [address]#### TRANSF ####[place] [phone] Platelets 470 10*3/uL High 150-400 [facility] Comment on above: Performed By: #### P T, PTT, AMYL, CMP, LIPA, PHOS ####[address]#### TRANSF ####[place] [phone] WBC (Leukocytes) 4.43 10*3/uL Normal 3.70-11.00 [facility] Comment on above: Performed By: #### P T, PTT, AMYL, CMP, LIPA, PHOS ####[address]#### TRANSF ####[phone] Comp Metabolic Panelon 08-31 Alanine aminotransferase (ALT) 55 U/L High 5-50 [facility] Comment on above: Performed By: #### P T, PTT, AMYL, CMP, LIPA, PHOS ####[place] [address]#### TRANSF ####[place] [address] Albumin 2.8 g/dL Low 3.5-5.0 [facility] Comment on above: Performed By: #### P T, PTT, AMYL, CMP, LIPA, PHOS ####[address]#### TRANSF ####[phone] Alkaline phosphatase (ALP) 475 U/L High 40-150 [facility] Comment on above: Performed By: #### P T, PTT, AMYL, CMP, LIPA, PHOS ####[place] [address]#### TRANSF ####[place] [phone] Anion gap 7 mmol/L Low 9-18 [facility] Comment on above: Performed By: #### P T, PTT, AMYL, CMP, LIPA, PHOS ####[place] [address]#### TRANSF ####[address] Av[place] [address] Aspartate aminotransferase (AST) 59 U/L High 7-40 [facility] Comment on above: Performed By: #### P T, PTT, AMYL, CMP, LIPA, PHOS ####[place] [address]#### TRANSF ####[place] [address] Bilirubin (total) 0.4 mg/dL Normal 0.0-1.5 [facility] Comment on above: Performed By: #### P T, PTT, AMYL, CMP, LIPA, PHOS ####[place] [address]#### TRANSF ####[place] [address] Calcium 7.9 mg/dL Low 8.5-10.5 [facility] Comment on above: Performed By: #### P T, PTT, AMYL, CMP, LIPA, PHOS ####[place] [address]#### TRANSF ####[address] [place] [phone] Chloride 102 mmol/L Normal 98-110 [facility] Comment on above: Performed By: #### P T, PTT, AMYL, CMP, LIPA, PHOS ####[place] [address]#### TRANSF ####[address] [place] [phone] CO2 29 mmol/L Normal 23-32 [facility] Comment on above: Performed By: #### P T, PTT, AMYL, CMP, LIPA, PHOS ####[address]#### TRANSF ####[place] [address] Creatinine 0.56 mg/dL Low 0.70-1.40 [facility] Comment on above: Performed By: #### P T, PTT, AMYL, CMP, LIPA, PHOS ####[place] [address]#### TRANSF ####[place] [address] eGFR (non-black) mL/min/{1.73_m2} Normal >60 [facility] Comment on above: Performed By: #### P T, PTT, AMYL, CMP, LIPA, PHOS ####[address]#### TRANSF ####[place] [address] Glucose mass conc 165 mg/dL High 65-100 [facility] Comment on above: Performed By: #### P T, PTT, AMYL, CMP, LIPA, PHOS ####[address]#### TRANSF ####[place] [address] Potassium molar conc 4.4 mmol/L Normal 3.5-5.0 [facility] Comment on above: Performed By: #### P T, PTT, AMYL, CMP, LIPA, PHOS ####[place] [address]#### TRANSF ####[place] [address] Protein 6.4 g/dL Normal 6.0-8.4 [facility] Comment on above: Performed By: #### P T, PTT, AMYL, CMP, LIPA, PHOS ####[place] [address]#### TRANSF ####[place] [address] Sodium 138 mmol/L Normal 135-146 [facility] Comment on above: Performed By: #### P T, PTT, AMYL, CMP, LIPA, PHOS ####[place] [address]#### TRANSF ####[place] [address] Urea nitrogen 10 mg/dL Normal 10-25 [facility] Comment on above: Performed By: #### P T, PTT, AMYL, CMP, LIPA, PHOS ####[place] [address]#### TRANSF ####[place] [address] Magnesiumon 08-31-2017 Magnesium 2.3 mg/dL Normal 1.7-2.6 [facility] Comment on above: Performed By: #### P T, PTT, AMYL, CMP, LIPA, PHOS ####[place] [address]#### TRANSF ####[place] [address] PLAN OF CAREon 08-31-2017 PLAN OF CARE HNO ID: [id number] thor: Miriam Britt (Teacher Vocal)Service: (none)Author Type: TechnicianType: Plan of CareFiled: 08/31/2017 2:26 PMNote 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 Patient to use [facility] Bedside Delivery - N/A2. If fax, patient would like us to fax prescriptions to [facility]. Pharmacy: b. Location: c. Phone:3. Insurance card on file - N/A4. Credit card for payment - N/A [facility] PLAN OF CARE HNO ID: [id number] thor: Macie Cruz (Pharmacist)Service: PharmacyAuthor Type: PharmacistType: Plan of CareFiled: 08/31/2017 9:28 AMNote Text:DISCHARGE MEDICATION REVIEW BY PHARMACYPatient Name: Rocio Jackson : [id number] Admission Date: 08/13/2017Date of Contact: August 31, 2017 Time of Contact: 9:28 AMMedication list was reviewed by a Pharmacist for drug interactions or drugrelated problems:Queenie Cruz PharmacistMar 2017 9:28 AMMedication ListSTART taking these medications [...] oxyCODONE IR 5 mg immediate release tablet [facility] PROGRESSon 08-31-2017 PROGRESS HNO ID: [id number] thor: Michael Cedillo) AugustinService: General SurgeryAuthor Type: PhysicianType: Progress NotesFiled: 08/31/2017 7:00 PMNote Text:PROGRESS NOTES - SURGICAL SERVICESPATIENT NAME: Rocio Boudreaux: [id number] HISTORY OF PRESENT ILLNESS:Resting well. No acute [...] discharge planningToms MD Froilan, MPH, FACSGeneral/Trauma/HPB SurgeryPager: [phone] Cell: [phone] 2017 Normal [facility] Phosphoruson 08-31-2017 Phosphate 2.1 mg/dL Low 2.5-4.5 [facility] Comment on above: Performed By: #### P T, PTT, AMYL, CMP, LIPA, PHOS ####[facility] [place], [place] [phone]#### TRANSF ####[facility] [place], [place] [phone] THERAPY NTon 08-31-2017 THERAPY NT HNO ID: [id number] thor: Adela (Inspector And Clerk) Carlin: Physical TherapyAuthor Type: Physical Therapy AssistantType: Therapy (PT/OT/Speech/Resp)Filed: 08/31/2017 3:24 PMNote Text: -Attestation signed by Tonia Schmitz at 08/31/2017 3:44 PMI reviewed and agree with the documentation corresponding to this therapyvisit.SIGNATURE: Tonia Schmitz, PTDATE: August 31, 2017TIME: 3:44 PM Ph ysical Therapy TreatmentSERVICE DATE: 08/31/2017SERVICE TIME: 1350 to 1415ROOM: [place] [address] ( OPERATING ROOM)Recommended Discharge Disposition: Subacute/SNFRecommended Discharge [...] on feet;Difficulty walking-musculoskeletalInter ventions Provided: Therapeutic Exercise (73460);Gait Training (25596)Therapeutic Exercise (85635) Treatment Minutes: 101 unitSkilled Intervention(s): Instruction in therapeutic exercise for B LEstrengtheningVerbal and tactile cuing provided for pace and performanceGait Training (76071) Treatment Minutes: 151 unitSkilled Intervention(s): Instruction in [...] 31, 2017 : 3:22 PM PAGER/CONTACT #: [id number] Normal [facility] Basic Metabolic Panlon 08-30 Anion gap 10 mmol/L Normal 9-18 [facility] Comment on above: Performed By: #### P T, PTT, AMYL, CMP, LIPA, PHOS ####[phone]#### TRANSF ####[place] [phone] Calcium 8.1 mg/dL Low 8.5-10.5 [facility] Comment on above: Performed By: #### P T, PTT, AMYL, CMP, LIPA, PHOS ####[place] [phone]#### TRANSF ####[facility] [address] [place] [phone] Chloride 102 mmol/L Normal 98-110 [facility] Comment on above: Performed By: #### P T, PTT, AMYL, CMP, LIPA, PHOS ####[place] [address]#### TRANSF ####[place] [address]854-5755 CO2 27 mmol/L Normal 23-32 [facility] Comment on above: Performed By: #### P T, PTT, AMYL, CMP, LIPA, PHOS ####[place] [address]#### TRANSF ####[place] [address]854-5755 Creatinine 0.59 mg/dL Low 0.70-1.40 [facility] Comment on above: Performed By: #### P T, PTT, AMYL, CMP, LIPA, PHOS ####[place] [address]#### TRANSF ####[place] [address]854-5755 eGFR (non-black) mL/min/{1.73_m2} Normal >60 [facility] Comment on above: Performed By: #### P T, PTT, AMYL, CMP, LIPA, PHOS ####[address]#### TRANSF ####[place] [address]854[address]5755 Glucose mass conc 133 mg/dL High 65-100 [facility] Comment on above: Performed By: #### P T, PTT, AMYL, CMP, LIPA, PHOS ####[place] [address]#### TRANSF ####[place] [address]854-5755 Potassium molar conc 4.4 mmol/L Normal 3.5-5.0 [facility] Comment on above: Performed By: #### P T, PTT, AMYL, CMP, LIPA, PHOS ####[place] [address]#### TRANSF ####[place] [address]854-5755 Sodium 139 mmol/L Normal 135-146 [facility] Comment on above: Performed By: #### P T, PTT, AMYL, CMP, LIPA, PHOS ####[place] [address]#### TRANSF ####[place] [address]854-5755 Urea nitrogen 9 mg/dL Low 10-25 [facility] Comment on above: Performed By: #### P T, PTT, AMYL, CMP, LIPA, PHOS ####[place] [address]#### TRANSF ####[place] [phone] CBC and Differentialon 08-30 Abs Baso <0.03 Normal <0.11 [facility] Comment on above: Performed By: #### P T, PTT, AMYL, CMP, LIPA, PHOS ####[place] [address]#### TRANSF ####[place] [address]854-5[address] Abs Mcduffie 0.42 k/uL Normal <0.87 [facility] Comment on above: Performed By: #### P T, PTT, AMYL, CMP, LIPA, PHOS ####[place] [address]#### TRANSF ####[place] [address]854-5755 Abs Neut 2.87 k/uL Normal 1.45-7.50 [facility] Comment on above: Performed By: #### P T, PTT, AMYL, CMP, LIPA, PHOS ####[place] [address]#### TRANSF ####[address] Av[address] [phone] Basophils/100 WBC Auto (Bld) 0.4 % Normal [facility] Comment on above: Performed By: #### P T, PTT, AMYL, CMP, LIPA, PHOS ####[place] [address]#### TRANSF ####[place] [address]854-5755 DTYPE Auto Diff Normal [facility] Comment on above: Performed By: #### P T, PTT, AMYL, CMP, LIPA, PHOS ####[place] [address]#### TRANSF ####[place] [address] Eosinophils 0.18 10*3/uL Normal <0.46 [facility] Comment on above: Performed By: #### P T, PTT, AMYL, CMP, LIPA, PHOS ####[place] [address]#### TRANSF ####[place] [address] Eosinophils/100 leukocytes 3.7 % Normal [facility] Comment on above: Performed By: #### P T, PTT, AMYL, CMP, LIPA, PHOS ####[place] [address]#### TRANSF ####[place] [address] Erythrocyte distribution width Auto Ratio (RBC) 15.4 % High 11.5-15.0 [facility] Comment on above: Performed By: #### P T, PTT, AMYL, CMP, LIPA, PHOS ####[place] [address]#### TRANSF ####[place] [phone] Erythrocytes (RBC) 2.91 10*6/uL Low 4.20-6.00 [facility] Comment on above: Performed By: #### P T, PTT, AMYL, CMP, LIPA, PHOS ####[place] [address]#### TRANSF ####[place] [address]854-5755 Hematocrit (HCT) 24.9 % Low 39.0-51.0 [facility] Comment on above: Performed By: #### P T, PTT, AMYL, CMP, LIPA, PHOS ####[place] [address]#### TRANSF ####[place] [address]854[address] Hemoglobin mass conc (Bld) 7.9 g/dL Low 13.0-17.0 [facility] Comment on above: Performed By: #### P T, PTT, AMYL, CMP, LIPA, PHOS ####[place] [address]#### TRANSF ####[place] [address]854[address] Lymphocytes 1.44 10*3/uL Normal 1.00-4.00 [facility] Comment on above: Performed By: #### P T, PTT, AMYL, CMP, LIPA, PHOS ####[place] [address]#### TRANSF ####[place] [address]854[address] Lymphocytes/100 leukocytes 29.2 % Normal [facility] Comment on above: Performed By: #### P T, PTT, AMYL, CMP, LIPA, PHOS ####[place] [address]#### TRANSF ####[phone] MCH 27.1 pG Normal 26.0-34.0 [facility] Comment on above: Performed By: #### P T, PTT, AMYL, CMP, LIPA, PHOS ####[address]10#### TRANSF ####[place] [phone] MCHC mass conc (RBC) 31.7 g/dL Normal 30.5-36.0 [facility] Comment on above: Performed By: #### P T, PTT, AMYL, CMP, LIPA, PHOS ####[place] [address]#### TRANSF ####[phone] MCV 85.6 fL Normal 80.0-100.0 [facility] Comment on above: Performed By: #### P T, PTT, AMYL, CMP, LIPA, PHOS ####[place] [address]#### TRANSF ####[phone] Monocytes/100 leukocytes 8.5 % Normal [facility] Comment on above: Performed By: #### P T, PTT, AMYL, CMP, LIPA, PHOS ####[place] [phone]#### TRANSF ####[phone] Neutrophils/100 WBC Auto (Bld) 58.2 % Normal [facility] Comment on above: Performed By: #### P T, PTT, AMYL, CMP, LIPA, PHOS ####[place] [phone]#### TRANSF ####[place] [phone] Platelet mean volume (PMV) 9.4 fL Normal 9.0-12.7 [facility] Comment on above: Performed By: #### P T, PTT, AMYL, CMP, LIPA, PHOS ####[place] [address]#### TRANSF ####[place] [phone] Platelets 505 10*3/uL High 150-400 [facility] Comment on above: Performed By: #### P T, PTT, AMYL, CMP, LIPA, PHOS ####[address]10#### TRANSF ####[place] [phone] WBC (Leukocytes) 4.93 10*3/uL Normal 3.70-11.00 [facility] Comment on above: Performed By: #### P T, PTT, AMYL, CMP, LIPA, PHOS ####[place] [phone]#### TRANSF ####[place] [phone] Hepatic Functn Panelon 08-30 Alanine aminotransferase (ALT) 34 U/L Normal 5-50 [facility] Comment on above: Performed By: #### P T, PTT, AMYL, CMP, LIPA, PHOS ####[place] [phone]#### TRANSF ####[address] Av[address] [phone] Albumin 3.0 g/dL Low 3.5-5.0 [facility] Comment on above: Performed By: #### P T, PTT, AMYL, CMP, LIPA, PHOS ####[place] [address]#### TRANSF ####[place] [address] Alkaline phosphatase (ALP) 480 U/L High 40-150 [facility] Comment on above: Performed By: #### P T, PTT, AMYL, CMP, LIPA, PHOS ####[place] [address]#### TRANSF ####[place] [address] Aspartate aminotransferase (AST) 41 U/L High 7-40 [facility] Comment on above: Performed By: #### P T, PTT, AMYL, CMP, LIPA, PHOS ####[place] [address]#### TRANSF ####[place] [address]854[address] Bilirubin (total) 0.5 mg/dL Normal 0.0-1.5 [facility] Comment on above: Performed By: #### P T, PTT, AMYL, CMP, LIPA, PHOS ####[place] [address]#### TRANSF ####[place] [address]854[address] Bilirubin,Conjugated <0.2 Normal 0.0-0.4 [facility] Comment on above: Performed By: #### P T, PTT, AMYL, CMP, LIPA, PHOS ####[place] [address]#### TRANSF ####[place] [address]100 [place], [place] [phone] Protein 6.6 g/dL Normal 6.0-8.4 [facility] Comment on above: Performed By: #### P T, PTT, AMYL, CMP, LIPA, PHOS ####[place] [phone]#### TRANSF ####[place] [phone] Magnesiumon 08-30-2017 Magnesium 2.3 mg/dL Normal 1.7-2.6 [facility] Comment on above: Performed By: #### P T, PTT, AMYL, CMP, LIPA, PHOS ####[place] [phone]#### TRANSF ####[place] [phone] PROGRESSon 08-30-2017 PROGRESS HNO ID: [id number] thor: Michael Cedillo) AugustinService: General SurgeryAuthor Type: PhysicianType: Progress NotesFiled: 08/30/2017 10:38 AMNote Text: SURGERY INPATIENT PROGRESS NOTESName: Rocio Boudreaux: [id number] and Plan:62 year old male with duodenal [...] acting) (HumaLOG) SUBCUTANEOUS w MEALSAND HSphenol 1 Candor (CHLORASEPTIC) 1 Candor MUCOUS MEMBRANE (TOPICAL MOUTH ANDTHROAT) q 2 [...] kg (192 lb) SpO2 99% BMI 29.19 kg/t8Ywdjtl/Output Summary (Last 24 hours) at 08/30/17 0850Last [...] 2.6 3.4Liver Function, Amylase, AND LipaseRecent Labs 0TPROT 6.6ALB 3.0*ALT 34AST 41*ALKPHOS 480*TBILI 0.5General Appearance: NADAbdomen: soft, non-tender, no distention. PTHC with bilious drainage, IRdrain with scant clear drainage.Serena Trent, MDPGY -1 General SurgeryMercy Health [facility] 20178:50 DARRELTANNEKA NOTEI have independently seen and examined the patient today. I haveindependently reviewed all the imaging and the labs. I agree with keycomponents of the resident's note above. Care plan and decision making hasbeen discussed.PTC was capped, J-P continues to be serous, patient tolerated PTC cappingwithout any issuesAppropriate by mouth intakeDischarge planningToms MD Froilan, MPH, FACSGeneral/Trauma/HPB SurgeryPager: [phone] Cell: [phone] 2017 Normal [facility] Phosphoruson 08-30-2017 Phosphate 2.8 mg/dL Normal 2.5-4.5 [facility] Comment on above: Performed By: #### P T, PTT, AMYL, CMP, LIPA, PHOS ####[place] [id number] [place], [place] [phone]#### TRANSF ####[facility] [place], [place] [phone] Basic Metabolic Panlon 08-29 Anion gap 10 mmol/L Normal 9-18 [facility] Comment on above: Performed By: #### P T, PTT, AMYL, CMP, LIPA, PHOS ####[address] [phone]#### TRANSF ####[place] [address] Calcium 8.4 mg/dL Low 8.5-10.5 [facility] Comment on above: Performed By: #### P T, PTT, AMYL, CMP, LIPA, PHOS ####[place] [address]#### TRANSF ####[place] [address] Chloride 103 mmol/L Normal 98-110 [facility] Comment on above: Performed By: #### P T, PTT, AMYL, CMP, LIPA, PHOS ####[place] [address]#### TRANSF ####[place] [address]854[address] CO2 26 mmol/L Normal 23-32 [facility] Comment on above: Performed By: #### P T, PTT, AMYL, CMP, LIPA, PHOS ####[place] [address]#### TRANSF ####[place] [address]854[address]5755 Creatinine 0.66 mg/dL Low 0.70-1.40 [facility] Comment on above: Performed By: #### P T, PTT, AMYL, CMP, LIPA, PHOS ####[place] [address]#### TRANSF ####[place] [address] eGFR (non-black) mL/min/{1.73_m2} Normal >60 [facility] Comment on above: Performed By: #### P T, PTT, AMYL, CMP, LIPA, PHOS ####[place] [address]#### TRANSF ####[place] [address]854[address] Glucose mass conc 118 mg/dL High 65-100 [facility] Comment on above: Performed By: #### P T, PTT, AMYL, CMP, LIPA, PHOS ####[place] [address]#### TRANSF ####[place] [address]854[address]5755 Potassium molar conc 4.3 mmol/L Normal 3.5-5.0 [facility] Comment on above: Performed By: #### P T, PTT, AMYL, CMP, LIPA, PHOS ####[place] [address]#### TRANSF ####[place] [address]854[address] Sodium 139 mmol/L Normal 135-146 [facility] Comment on above: Performed By: #### P T, PTT, AMYL, CMP, LIPA, PHOS ####[place] [address]#### TRANSF ####[place] [address]854[address] Urea nitrogen 10 mg/dL Normal 10-25 [facility] Comment on above: Performed By: #### P T, PTT, AMYL, CMP, LIPA, PHOS ####[place] [address]#### TRANSF ####[place] [address]854[address] CBC and Differentialon 08-29 Abs Baso <0.03 Normal <0.11 [facility] Comment on above: Performed By: #### P T, PTT, AMYL, CMP, LIPA, PHOS ####[place] [address]#### TRANSF ####[place] 680854[address]5755 Abs Mcduffie 0.43 k/uL Normal <0.87 [facility] Comment on above: Performed By: #### P T, PTT, AMYL, CMP, LIPA, PHOS ####[place] [address]#### TRANSF ####[place] [address]854[address]5755 Abs Neut 2.71 k/uL Normal 1.45-7.50 [facility] Comment on above: Performed By: #### P T, PTT, AMYL, CMP, LIPA, PHOS ####[place] [address]#### TRANSF ####[place] [address]854[address]5755 Basophils/100 WBC Auto (Bld) 0.4 % Normal [facility] Comment on above: Performed By: #### P T, PTT, AMYL, CMP, LIPA, PHOS ####[place] [address]#### TRANSF ####[place] [address]854[address]5755 DTYPE Auto Diff Normal [facility] Comment on above: Performed By: #### P T, PTT, AMYL, CMP, LIPA, PHOS ####[place] [address]#### TRANSF ####[place] [address]854[address] Eosinophils 0.15 10*3/uL Normal <0.46 [facility] Comment on above: Performed By: #### P T, PTT, AMYL, CMP, LIPA, PHOS ####[place] [address]#### TRANSF ####[place] [address]854[address] Eosinophils/100 leukocytes 3.2 % Normal [facility] Comment on above: Performed By: #### P T, PTT, AMYL, CMP, LIPA, PHOS ####[place] [address]#### TRANSF ####[place] [address]854[address] Erythrocyte distribution width Auto Ratio (RBC) 15.1 % High 11.5-15.0 [facility] Comment on above: Performed By: #### P T, PTT, AMYL, CMP, LIPA, PHOS ####[place] [address]#### TRANSF ####[place] [address] Erythrocytes (RBC) 2.98 10*6/uL Low 4.20-6.00 [facility] Comment on above: Performed By: #### P T, PTT, AMYL, CMP, LIPA, PHOS ####[place] [address]#### TRANSF ####[place] [address]854[address]5755 Hematocrit (HCT) 26.1 % Low 39.0-51.0 [facility] Comment on above: Performed By: #### P T, PTT, AMYL, CMP, LIPA, PHOS ####[place] [address]#### TRANSF ####[place] [address]854[address]755 Hemoglobin mass conc (Bld) 8.1 g/dL Low 13.0-17.0 [facility] Comment on above: Performed By: #### P T, PTT, AMYL, CMP, LIPA, PHOS ####[place] [address]#### TRANSF ####[place] [address]854[address]5755 Lymphocytes 1.44 10*3/uL Normal 1.00-4.00 [facility] Comment on above: Performed By: #### P T, PTT, AMYL, CMP, LIPA, PHOS ####[place] [address]#### TRANSF ####[place] [address]854[address]5755 Lymphocytes/100 leukocytes 30.3 % Normal [facility] Comment on above: Performed By: #### P T, PTT, AMYL, CMP, LIPA, PHOS ####[place] [address]#### TRANSF ####[place] [address]854[address] MCH 27.2 pG Normal 26.0-34.0 [facility] Comment on above: Performed By: #### P T, PTT, AMYL, CMP, LIPA, PHOS ####[place] [address]#### TRANSF ####[place] [address]854[address]5755 MCHC mass conc (RBC) 31.0 g/dL Normal 30.5-36.0 [facility] Comment on above: Performed By: #### P T, PTT, AMYL, CMP, LIPA, PHOS ####[place] [address]#### TRANSF ####[place] [address]854[address] MCV 87.6 fL Normal 80.0-100.0 [facility] Comment on above: Performed By: #### P T, PTT, AMYL, CMP, LIPA, PHOS ####[place] [address]#### TRANSF ####[address] [place] [phone] Monocytes/100 leukocytes 9.1 % Normal [facility] Comment on above: Performed By: #### P T, PTT, AMYL, CMP, LIPA, PHOS ####[place] [address]#### TRANSF ####[place] [phone] Neutrophils/100 WBC Auto (Bld) 57.0 % Normal [facility] Comment on above: Performed By: #### P T, PTT, AMYL, CMP, LIPA, PHOS ####[place] [address]#### TRANSF ####[place] [phone] Platelet mean volume (PMV) 9.5 fL Normal 9.0-12.7 [facility] Comment on above: Performed By: #### P T, PTT, AMYL, CMP, LIPA, PHOS ####[place] [address]#### TRANSF ####[place] [phone] Platelets 508 10*3/uL High 150-400 [facility] Comment on above: Performed By: #### P T, PTT, AMYL, CMP, LIPA, PHOS ####[place] [address]#### TRANSF ####[address] [phone] WBC (Leukocytes) 4.75 10*3/uL Normal 3.70-11.00 [facility] Comment on above: Performed By: #### P T, PTT, AMYL, CMP, LIPA, PHOS ####[address] [phone]#### TRANSF ####[place] [address] [place], [place] [phone] Magnesiumon 08-29-2017 Magnesium 2.2 mg/dL Normal 1.7-2.6 [facility] Comment on above: Performed By: #### P T, PTT, AMYL, CMP, LIPA, PHOS ####[address] [phone]#### TRANSF ####[place] [phone] NURSING PROGon 08-29-2017 NURSING PROG HNO ID: [id number] thor: Saima Kramer (Rn) Debra, RNService: (none)Author Type: Registered NurseType: Nursing Progress NoteFiled: 08/29/2017 4:09 PMNote Text: Nursing Progress NotePatient Name: Rocio JacksonMRN: [id number] Location: [place] [address]/[id number] ____Daily Note:Pt sitting in bed and upon [...] was completed by: Saima Richardson RN Normal [facility] PROGRESSon 08-29-2017 PROGRESS HNO ID: [id number] thor: Michael Cedillo) AugustinService: General SurgeryAuthor Type: PhysicianType: Progress NotesFiled: 08/29/2017 11:10 AMNote Text: SURGERY INPATIENT PROGRESS NOTESName: Rocio HayesMarisa: [id number] and Plan:62 year old male with duodenal [...] 5,000 Units SUBCUTANEOUS q 8 Hphenol 1 Candor (CHLORASEPTIC) 1 Candor MUCOUS MEMBRANE (TOPICAL MOUTH ANDTHROAT) q 2 [...] kg (192 lb) SpO2 97% BMI 29.19 kg/y1Otljlw/Output Summary (Last 24 hours) at 08/29/17 0737Last data filed at 08/29/17 0708 Gross per 24 hourIntake 2206 mlOutput 5475 mlNet -3269 mlGeneral Appearance: NADAbdomen: soft, non-tender, no distention. PTHC with bilious drainage, IRdrain with scant clear drainage.Akbar Lassiter MDGENERAL SURGERY PGY-47:37 AM3/08/2017*A review of daily goals, interventions, and plan [...] cap PTC.Michael Jolley MD, MPH, FACSGeneral/Trauma/HPB SurgeryPager: [phone] Cell: [phone] 2017 Normal [facility] Phosphoruson 08-29-2017 Phosphate 2.6 mg/dL Normal 2.5-4.5 [facility] Comment on above: Performed By: #### P T, PTT, AMYL, CMP, LIPA, PHOS ####[facility] [place], [place] [phone]#### TRANSF ####[facility] [place], [place] [phone] Basic Metabolic Panlon 08-28 Anion gap 10 mmol/L Normal 9-18 [facility] Comment on above: Performed By: #### P T, PTT, AMYL, CMP, LIPA, PHOS ####[place] [address]#### TRANSF ####[place] [address]854-5755 Calcium 8.8 mg/dL Normal 8.5-10.5 [facility] Comment on above: Performed By: #### P T, PTT, AMYL, CMP, LIPA, PHOS ####[place] [address]#### TRANSF ####[place] [address] Chloride 102 mmol/L Normal 98-110 [facility] Comment on above: Performed By: #### P T, PTT, AMYL, CMP, LIPA, PHOS ####[place] [address]#### TRANSF ####[place] [address] CO2 26 mmol/L Normal 23-32 [facility] Comment on above: Performed By: #### P T, PTT, AMYL, CMP, LIPA, PHOS ####[place] [address]#### TRANSF ####[place] [address] Creatinine 0.71 mg/dL Normal 0.70-1.40 [facility] Comment on above: Performed By: #### P T, PTT, AMYL, CMP, LIPA, PHOS ####[place] [address]#### TRANSF ####[place] [address] eGFR (non-black) mL/min/{1.73_m2} Normal >60 [facility] Comment on above: Performed By: #### P T, PTT, AMYL, CMP, LIPA, PHOS ####[place] [address]#### TRANSF ####[place] [address] [place] Av[place] [phone] Glucose mass conc 138 mg/dL High 65-100 [facility] Comment on above: Performed By: #### P T, PTT, AMYL, CMP, LIPA, PHOS ####[place] [address]#### TRANSF ####[place] [address]854-5755 Potassium molar conc 4.5 mmol/L Normal 3.5-5.0 [facility] Comment on above: Performed By: #### P T, PTT, AMYL, CMP, LIPA, PHOS ####[place] [address]#### TRANSF ####[place] [address]854-5755 Sodium 138 mmol/L Normal 135-146 [facility] Comment on above: Performed By: #### P T, PTT, AMYL, CMP, LIPA, PHOS ####[place] [address]#### TRANSF ####[address] [phone] Urea nitrogen 9 mg/dL Low 10-25 [facility] Comment on above: Performed By: #### P T, PTT, AMYL, CMP, LIPA, PHOS ####[place] [address]#### TRANSF ####[address] Av[address] [phone] CASE MANAGEMon 08-28-2017 CASE MANAGEM HNO ID: [id number] thor: Alexandrea (Rn) Thom, RNService: Care ManagementAuthor Type: Registered NurseType: Care Mgt Progress NoteFiled: 08/28/2017 2:51 PMNote Text:CARE MANAGEMENT PROGRESS NOTESERVICE DATE: 08/28/2017SERVICE TIME: 2:48 PM LOS: 15 daysNeeds Prior to Discharge: To Be Determined Medical Clearance needed.GI Soft Diet.Pt Remains with int and ext bliliary drain.Plan is for SNF vs HHC when medically cleared,[facility] in [facility] notification is needed (not precert)CM remains available to assist with skilled dc needs.SIGNATURE: Alexandrea Tomas RN PATIENT NAME: Rocio VizcarraTE: August 28, 2017 : 2:47 PM PAGER/CONTACT #: [phone] Normal [facility] CBC and Differentialon 08-28 Abs Baso <0.03 Normal <0.11 [facility] Comment on above: Performed By: #### P T, PTT, AMYL, CMP, LIPA, PHOS ####[place] [address]#### TRANSF ####[place] [address] Abs Mcduffie 0.43 k/uL Normal <0.87 [facility] Comment on above: Performed By: #### P T, PTT, AMYL, CMP, LIPA, PHOS ####[place] [address]#### TRANSF ####[place] [address]854-5755 Abs Neut 3.60 k/uL Normal 1.45-7.50 [facility] Comment on above: Performed By: #### P T, PTT, AMYL, CMP, LIPA, PHOS ####[place] [address]#### TRANSF ####[place] [phone] Basophils/100 WBC Auto (Bld) 0.3 % Normal [facility] Comment on above: Performed By: #### P T, PTT, AMYL, CMP, LIPA, PHOS ####[place] [address]#### TRANSF ####[place] [address]854-5755 DTYPE Auto Diff Normal [facility] Comment on above: Performed By: #### P T, PTT, AMYL, CMP, LIPA, PHOS ####[place] [address]#### TRANSF ####[place] [address] Eosinophils 0.17 10*3/uL Normal <0.46 [facility] Comment on above: Performed By: #### P T, PTT, AMYL, CMP, LIPA, PHOS ####[place] [address]#### TRANSF ####[place] [id number] Eosinophils/100 leukocytes 3.0 % Normal [facility] Comment on above: Performed By: #### P T, PTT, AMYL, CMP, LIPA, PHOS ####[place] [address]#### TRANSF ####[place] [address]854-5755 Erythrocyte distribution width Auto Ratio (RBC) 15.5 % High 11.5-15.0 [facility] Comment on above: Performed By: #### P T, PTT, AMYL, CMP, LIPA, PHOS ####[place] [id number]#### TRANSF ####[place] [id number] Erythrocytes (RBC) 3.08 10*6/uL Low 4.20-6.00 [facility] Comment on above: Performed By: #### P T, PTT, AMYL, CMP, LIPA, PHOS ####[place] [id number]#### TRANSF ####[place] [id number] Hematocrit (HCT) 26.4 % Low 39.0-51.0 [facility] Comment on above: Performed By: #### P T, PTT, AMYL, CMP, LIPA, PHOS ####[place] [id number]#### TRANSF ####[place] [id number] Hemoglobin mass conc (Bld) 8.4 g/dL Low 13.0-17.0 [facility] Comment on above: Performed By: #### P T, PTT, AMYL, CMP, LIPA, PHOS ####[place] [id number]#### TRANSF ####[place] [id number] Lymphocytes 1.50 10*3/uL Normal 1.00-4.00 [facility] Comment on above: Performed By: #### P T, PTT, AMYL, CMP, LIPA, PHOS ####[place] [id number]#### TRANSF ####[place] [id number] Lymphocytes/100 leukocytes 26.2 % Normal [facility] Comment on above: Performed By: #### P T, PTT, AMYL, CMP, LIPA, PHOS ####[place] [address]#### TRANSF ####[place] [address] MCH 27.3 pG Normal 26.0-34.0 [facility] Comment on above: Performed By: #### P T, PTT, AMYL, CMP, LIPA, PHOS ####[place] [address]#### TRANSF ####[place] [address] MCHC mass conc (RBC) 31.8 g/dL Normal 30.5-36.0 [facility] Comment on above: Performed By: #### P T, PTT, AMYL, CMP, LIPA, PHOS ####[place] [address]#### TRANSF ####[place] [address] MCV 85.7 fL Normal 80.0-100.0 [facility] Comment on above: Performed By: #### P T, PTT, AMYL, CMP, LIPA, PHOS ####[place] [address]#### TRANSF ####[place] [address] Monocytes/100 leukocytes 7.5 % Normal [facility] Comment on above: Performed By: #### P T, PTT, AMYL, CMP, LIPA, PHOS ####[place] [address]#### TRANSF ####[place] [address] Neutrophils/100 WBC Auto (Bld) 63.0 % Normal [facility] Comment on above: Performed By: #### P T, PTT, AMYL, CMP, LIPA, PHOS ####[place] [address]#### TRANSF ####[place] [phone] Platelet mean volume (PMV) 9.7 fL Normal 9.0-12.7 [facility] Comment on above: Performed By: #### P T, PTT, AMYL, CMP, LIPA, PHOS ####[place] [address]#### TRANSF ####[place] [address] Platelets 518 10*3/uL High 150-400 [facility] Comment on above: Performed By: #### P T, PTT, AMYL, CMP, LIPA, PHOS ####[place] [address]796[address]#### TRANSF ####[place] [address] WBC (Leukocytes) 5.72 10*3/uL Normal 3.70-11.00 [facility] Comment on above: Performed By: #### P T, PTT, AMYL, CMP, LIPA, PHOS ####[place] [address]#### TRANSF ####[place] [phone] Magnesiumon 08-28-2017 Magnesium 2.2 mg/dL Normal 1.7-2.6 [facility] Comment on above: Performed By: #### P T, PTT, AMYL, CMP, LIPA, PHOS ####[address]#### TRANSF ####[phone] NURSING PROGon 08-28-2017 NURSING PROG HNO ID: [id number] thor: Pramod (Rn) MOUSTAPHA Mckennaervice: (none)Author Type: Registered NurseType: Nursing Progress NoteFiled: 08/28/2017 5:07 PMNote Text: Nursing Progress NotePatient Name: Rocio Boudreaux: [id number] Location: [place] [address]/[id number] ____Daily Note: 08/28/17 0840 (late entry)- Patient [...] note was completed by: Pramod Mckenna RN [facility] PROGRESSon 08-28-2017 PROGRESS HNO ID: [id number] thor: Michael Cedillo) AugustinService: General SurgeryAuthor Type: PhysicianType: Progress NotesFiled: 08/28/2017 11:12 AMNote Text:PROGRESS NOTES - SURGICAL SERVICESPATIENT NAME: Rocio Boudreaux: [id number] HISTORY OF PRESENT ILLNESS:No acute events overnight. [...] Kayleen Gonzales MDDATE: August 28, 2017TIME: 7:52 DARRELTANNEKA ALEGREI have independently seen and examined the patient today. I haveindependently reviewed all the imaging and the labs. I agree with keycomponents of the resident's note above. Care plan and decision making hasbeen discussed.Continued High output from PTCJP nonbiliousAdvancing his diet to a low residue dietDC planningToms Froilan MD, MPH, FACSGeneral/Trauma/HPB SurgeryPager: [phone] Cell: [phone] 2017 [facility] PT EDon 08-28-2017 PT ED HNO ID: [id number] thor: Yohana (Diet-T) AdrianService: Nutrition TherapyAuthor Type: Dietetic TechnicianType: Patient EducationFiled: 08/28/2017 1:24 PMNote Text:NUTRITION PATIENT EDUCATIONTOPIC: Survival Skills: DietPATIENT NAME: Rocio Boudreaux: [id number] DATE: August 28, 2017Diagnosis: ADULT: Duodenal ObstructionREADINESS [...] OutpatientMNT Billing Type: Routine Care/15 min 2 Rani NOLASCO, diet-tPager: [phone] 20171:22 PM Normal [facility] Phosphoruson 08-28-2017 Phosphate 3.4 mg/dL Normal 2.5-4.5 [facility] Comment on above: Performed By: #### P T, PTT, AMYL, CMP, LIPA, PHOS ####[facility] [place], [place] [phone]#### TRANSF ####[facility] [address] [place], [place] [phone] THERAPY NTon 08-28-2017 THERAPY NT HNO ID: [id number] thor: Saima Diaz (Cota)ice: Occupational TherapyAuthor Type: Occupational Therapy AssistantType: Therapy (PT/OT/Speech/Resp)Filed: 08/28/2017 3:09 PMNote Text: -Attestation signed by Nolvia Reilly at 08/28/2017 3:48 PMI reviewed and agree with the documentation corresponding to this therapyvisit.SIGNATURE: WENDY Cade/LDATE: August 28, 2017TIME: 3:48 PM Oc cupational Therapy TreatmentSERVICE DATE: 08/28/2017SERVICE TIME: 1420 to 1500ROOM: [place] [address] ( OPERATING ROOM)Recommended Discharge Disposition: Subacute/SNFRecommended Discharge Disposition Comments: (Pt hopes to continue therapyin SNF in [place])Anticipated Discharge Needs: Supervision at HomePhysical Assist at Home for:Cleaning;Laundry;Meals;S hopping;Transportation;Ambul ationSupervision at Home due to: Other: See Comment (recent surgery)Recommended Discharge Equipment: Elastic Shoe Laces;Grab Bars-Shower;HandHeld Shower;Long Handled Shoe Horn;Long Handled Sponge;WheeledWalker;Systems Design Engineer ;Sock Aide;Shower ChairOT Recommendations to Nursing: OOB [...] PatientTREATMENT INTERVENTIONS:Therapy Diagnosis: Reduced mobility-otherInterventions Provided: Self Senior Living Management (85405);TherapeuticActivity (23389)Therapeutic Activity (17867) Treatment Minutes: 101 unitSkilled Intervention(s): Instructed patient in log roll techniqueInstruction in sit to and from stand technique with proper hand placementand body positioning at edge of bed/chairInstruction of safe transport of items from room to room with use of Winshuttleon the ww.Self Senior Living Management (44983) Treatment Minutes: 302 unitsSkilled Intervention(s): Provided instruction, cuing and facilitation forlower body dressing .Instructed pt on use of manager heavy equipment to zee/doff pants, underwear, shoes inorder to [...] 1420)Self Care Goal Status (G8988): CJ (08/28/17 1420)Based on clinical assessment and the score on [...] RE: Saima TRACY Spencer PATIENT NAME: Rocio Sibley: August 28, 2017 : 3:04 PM PAGER: [phone] Normal [facility] THERAPY NT HNO ID: [id number] thor: Saima Miranda (Cota)ervice: Occupational TherapyAuthor Type: Occupational Therapy AssistantType: Therapy (PT/OT/Speech/Resp)Filed: 08/28/2017 12:27 PMNote Text: -Attestation signed by Nolvia Reilly at 08/28/2017 1:15 PMI reviewed and agree with the documentation corresponding to this therapyvisit.SIGNATURE: Nolvia Reilly OTR/LDATE: August 28, 2017TIME: 1:15 PM OC CUPATIONAL THERAPY MISSED VISITSERVICE DATE: 08/28/2017SERVICE TIME: 1148 to 1148ROOM: [place] [address] ( OPERATING ROOM)Attempted Treatment. Patient not seen due to Eating.Will attempt again asschedule permits.SIGNATURE: Saima Spencer TRACY PATIENT NAME: Rocio JacksonDATE: August 28, 2017 : 12:27 PM PAGER/CONTACT #:[phone] [facility] BRIEF OP NOTon 08-27-2017 BRIEF OP NOT HNO ID: [id number] thor: Juan AgueroService: RadiologyAuthor Type: PhysicianType: Brief Op NoteFiled: 08/27/2017 11:09 AMNote Text:OPERATIVE/PROCEDURE REPORTLOG ID: [id number]/Procedure Date: 08/19/2017Incision/Procedure Start Time:Incision Close/Procedure End Time:Surgeon(s)/Proceduralis t(s) and Slab Polisher(s):Surgeon(s) and Role: * Vanessa Finley Additional StaffProcedure(s):Patient [...] with assistance.SIGNATURE: Juan Aguero MD PATIENT NAME: Rociomarisa VizcarraTE: August 27, 2017 : 11:02 AM PAGER/CONTACT #: [phone] Normal [facility] Basic Metabolic Panlon 08-27 Anion gap 9 mmol/L Normal 9-18 [facility] Comment on above: Performed By: #### P T, PTT, AMYL, CMP, LIPA, PHOS ####[place] [address]#### TRANSF ####[place] [phone] Calcium 8.5 mg/dL Normal 8.5-10.5 [facility] Comment on above: Performed By: #### P T, PTT, AMYL, CMP, LIPA, PHOS ####[phone]#### TRANSF ####[place] [phone] Chloride 102 mmol/L Normal 98-110 [facility] Comment on above: Performed By: #### P T, PTT, AMYL, CMP, LIPA, PHOS ####[address]#### TRANSF ####[place] [address] CO2 27 mmol/L Normal 23-32 [facility] Comment on above: Performed By: #### P T, PTT, AMYL, CMP, LIPA, PHOS ####[place] [address]#### TRANSF ####[place] [address] Creatinine 0.66 mg/dL Low 0.70-1.40 [facility] Comment on above: Performed By: #### P T, PTT, AMYL, CMP, LIPA, PHOS ####[place] [address]#### TRANSF ####[place] [address] eGFR (non-black) mL/min/{1.73_m2} Normal >60 [facility] Comment on above: Performed By: #### P T, PTT, AMYL, CMP, LIPA, PHOS ####[place] [address]#### TRANSF ####[place] [address] Glucose mass conc 105 mg/dL High 65-100 [facility] Comment on above: Performed By: #### P T, PTT, AMYL, CMP, LIPA, PHOS ####[place] [address]#### TRANSF ####[place] [address] Potassium molar conc 4.4 mmol/L Normal 3.5-5.0 [facility] Comment on above: Performed By: #### P T, PTT, AMYL, CMP, LIPA, PHOS ####[place] [address]#### TRANSF ####[place] [address] Sodium 138 mmol/L Normal 135-146 [facility] Comment on above: Performed By: #### P T, PTT, AMYL, CMP, LIPA, PHOS ####[place] [address]#### TRANSF ####[place] [address] Urea nitrogen 11 mg/dL Normal 10-25 [facility] Comment on above: Performed By: #### P T, PTT, AMYL, CMP, LIPA, PHOS ####[place] [address]#### TRANSF ####[place] [address] CASE MANAGEMon 08-27-2017 CASE MANAGEM HNO ID: [id number] thor: Catherine KenRn) Leeann, RNService: Case ManagementAuthor Type: Registered NurseType: Care Mgt Progress NoteFiled: 08/27/2017 4:26 PMNote Text:CARE MANAGEMENT PROGRESS NOTESERVICE DATE: 08/27/2017SERVICE TIME: 4:15 pm LOS: 14 daysMet with patient and sister Briana at bedside. Due to patient's currentclinical status, and the fact that he is single and lives alone, thepatient has elected to pursue placement at [facility] in [facility] [place]. Updates sent to [facility]. will continue to followplan of care to assist with discharge planning.SIGNATURE: Catherine Bradshaw RN PATIENT NAME: Rocio VizcarraTE: August 27, 2017 : 4:18 PM PAGER/CONTACT #: [phone] Normal [facility] CBC and Differentialon 08-27 Abs Baso 0.03 k/uL Normal <0.11 [facility] Comment on above: Performed By: #### P T, PTT, AMYL, CMP, LIPA, PHOS ####[place] [address]#### TRANSF ####[place] [address] [place] [address] Abs Mcduffie 0.29 k/uL Normal <0.87 [facility] Comment on above: Performed By: #### P T, PTT, AMYL, CMP, LIPA, PHOS ####[place] [address]#### TRANSF ####[place] [address] Abs Neut 3.08 k/uL Normal 1.45-7.50 [facility] Comment on above: Performed By: #### P T, PTT, AMYL, CMP, LIPA, PHOS ####[place] [address]#### TRANSF ####[place] [address] Basophils/100 WBC Auto (Bld) 0.6 % Normal [facility] Comment on above: Performed By: #### P T, PTT, AMYL, CMP, LIPA, PHOS ####[place] [address]#### TRANSF ####[place] [address] DTYPE Auto Diff Normal [facility] Comment on above: Performed By: #### P T, PTT, AMYL, CMP, LIPA, PHOS ####[place] [address]#### TRANSF ####[place] [address] Eosinophils 0.19 10*3/uL Normal <0.46 [facility] Comment on above: Performed By: #### P T, PTT, AMYL, CMP, LIPA, PHOS ####[place] [address]#### TRANSF ####[place] [address] Eosinophils/100 leukocytes 3.7 % Normal [facility] Comment on above: Performed By: #### P T, PTT, AMYL, CMP, LIPA, PHOS ####[place] [address]#### TRANSF ####[place] [address] Erythrocyte distribution width Auto Ratio (RBC) 15.6 % High 11.5-15.0 [facility] Comment on above: Performed By: #### P T, PTT, AMYL, CMP, LIPA, PHOS ####[place] [address]#### TRANSF ####[place] [address] Erythrocytes (RBC) 2.90 10*6/uL Low 4.20-6.00 [facility] Comment on above: Performed By: #### P T, PTT, AMYL, CMP, LIPA, PHOS ####[place] [address]#### TRANSF ####[place] [address] Hematocrit (HCT) 25.1 % Low 39.0-51.0 [facility] Comment on above: Performed By: #### P T, PTT, AMYL, CMP, LIPA, PHOS ####[place] [address]#### TRANSF ####[place] [address] Hemoglobin mass conc (Bld) 8.0 g/dL Low 13.0-17.0 [facility] Comment on above: Performed By: #### P T, PTT, AMYL, CMP, LIPA, PHOS ####[address]#### TRANSF ####[place] [address] Lymphocytes 1.56 10*3/uL Normal 1.00-4.00 [facility] Comment on above: Performed By: #### P T, PTT, AMYL, CMP, LIPA, PHOS ####[place] [address]#### TRANSF ####[place] [address] Lymphocytes/100 leukocytes 30.3 % Normal [facility] Comment on above: Performed By: #### P T, PTT, AMYL, CMP, LIPA, PHOS ####[place] [address]#### TRANSF ####[place] [address] MCH 27.6 pG Normal 26.0-34.0 [facility] Comment on above: Performed By: #### P T, PTT, AMYL, CMP, LIPA, PHOS ####[place] [address]#### TRANSF ####[place] [address] MCHC mass conc (RBC) 31.9 g/dL Normal 30.5-36.0 [facility] Comment on above: Performed By: #### P T, PTT, AMYL, CMP, LIPA, PHOS ####[address]#### TRANSF ####[address] [phone] MCV 86.6 fL Normal 80.0-100.0 [facility] Comment on above: Performed By: #### P T, PTT, AMYL, CMP, LIPA, PHOS ####[place] [address]#### TRANSF ####[place] [address] Monocytes/100 leukocytes 5.6 % Normal [facility] Comment on above: Performed By: #### P T, PTT, AMYL, CMP, LIPA, PHOS ####[place] [address]#### TRANSF ####[place] [address] Neutrophils/100 WBC Auto (Bld) 59.8 % Normal [facility] Comment on above: Performed By: #### P T, PTT, AMYL, CMP, LIPA, PHOS ####[place] [address]#### TRANSF ####[place] [address] Platelet mean volume (PMV) 9.2 fL Normal 9.0-12.7 [facility] Comment on above: Performed By: #### P T, PTT, AMYL, CMP, LIPA, PHOS ####[place] [address]#### TRANSF ####[place] [address] Platelets 481 10*3/uL High 150-400 [facility] Comment on above: Performed By: #### P T, PTT, AMYL, CMP, LIPA, PHOS ####[address]#### TRANSF ####[address], [place] [phone] WBC (Leukocytes) 5.15 10*3/uL Normal 3.70-11.00 [facility] Comment on above: Performed By: #### P T, PTT, AMYL, CMP, LIPA, PHOS ####[facility] [place], [place] [phone]#### TRANSF ####[facility] [address] [place], [place] [phone] IR EXCHANGE CATH BILI DRAINo n 08-27-2017 [...] Air Kerma: 2083.0 mGyDose Area Product (DAP): 647952.0 mGy*co1Yykjmv Time: 14:00 min:secRadiation dose exceed 5 Gy: NoIf radiation dose exceeded 5 Gy, was counseling and instructional brochure provided: N/ATECHNIQUE: The patient was prepped and draped using all elements of maximal sterile barrier technique (cap, mask, sterile gown, sterile gloves, a large sterile sheet, hand hygiene and cutaneous antisepsis)After local anesthesia, the indwelling 10 [place] right internal/external drain was removed over a wire and a long sheath was placed. Cholangiogram was performed. Using a KMP catheter and Glidewire, access was obtained into the first part of the duodenum and then into the third part of the duodenum and contrast injection was performed to assess for duodenal stricture. Over an Amplatz wire, a 12 [place] right internal/external drain was placed with the [...] of Removed Specimens: noneATTENDING RADIOLOGIST: Juan Aguero M.D.RANGE MOUNTER: NoneThe procedure was performed by the: attending radiologist, without an pharmacist assistant.The attending radiologist performed the following procedural [...] changed. Please maintain this tube to external bag.Global Marketing Specialist: NII Transcribe Date/Time: Aug 27 2017 2:25PDictated by : JUAN AGUERO MDThis examination was interpreted and the report reviewed and electronically signed by: JUAN AGUERO MD on Aug 27 2017 4:27PM EST Normal [facility] Magnesiumon 08-27-2017 Magnesium 2.2 mg/dL Normal 1.7-2.6 [facility] Comment on above: Performed By: #### P T, PTT, AMYL, CMP, LIPA, PHOS ####[facility] [place], [place] [phone]#### TRANSF ####[facility] [address] [place], [place] [phone] PROGRESSon 08-27-2017 PROGRESS HNO ID: [id number] thor: ASHLEY Lesterervice: General SurgeryAuthor Type: ResidentType: Progress NotesFiled: 08/27/2017 8:05 AMNote Text:PROGRESS NOTES - SURGICAL SERVICESPATIENT NAME: Rocio HayesN: [id number] HISTORY OF PRESENT ILLNESS:No acute events overnight. [...] Carolina Thao MD8:02 AM August 27, 2017PAGER: [phone] [facility] PT EDon 08-27-2017 PT ED HNO ID: [id number] thor: Lee Ann (Rn) MOUSTAPHA Drakeervice: RadiologyAuthor Type: Registered NurseType: Patient EducationFiled: 08/27/2017 10:43 AMNote Text:PATIENT EDUCATION TOPIC: PROCEDURE / SURGERY: Procedure/Surgery:cholangiog shanon and biliary tube exchange 12frPATIENT NAME: Rocio Boudreaux: [id number] LOCATION: [place] [address]/[id number] S TO LEARNCOGNITIVE ABILITY: Alert and orientedMOTIVATION [...] NoneElectronically Signed By: Lee Ann Drake RN [facility] Phosphoruson 08-27-2017 Phosphate 4.0 mg/dL Normal 2.5-4.5 [facility] Comment on above: Performed By: #### P T, PTT, AMYL, CMP, LIPA, PHOS ####[facility] [place], [place] [phone]#### TRANSF ####[facility] [address] [place], [place] [phone] THERAPY NTon 08-27-2017 THERAPY NT HNO ID: [id number] thor: Mandi Bowmanervice: Occupational TherapyAuthor Type: Occupational TherapistType: Therapy (PT/OT/Speech/Resp)Filed: 08/27/2017 3:16 PMNote Text:OCCUPATIONAL THERAPY MISSED VISITSERVICE DATE: 08/27/2017SERVICE TIME: 1500 to 1500ROOM: [place] [address] ( OPERATING ROOM)Attempted Treatment. Patient not seen due to Other: See Comment(Cholangiogram Today).SIGNATURE: WENDY Arceo/Timo PATIENT NAME: Rocio JacksonDEMETRIO: August 27, 2017 : 3:16 PM PAGER/CONTACT #:[phone] [facility] THERAPY NT HNO ID: [id number] thor: Adela LeongService: Physical TherapyAuthor Type: Physical Therapy AssistantType: Therapy (PT/OT/Speech/Resp)Filed: 08/27/2017 11:44 AMNote Text: -Attestation signed by Gonzales (Pt) Nola at 08/27/2017 11:44 AMI reviewed and agree with the assessment as documented above.SIGNATURE: Gonzales Vaca, PTDATE: August 27, 2017TIME: 11:44 AM PH YSICAL THERAPY MISSED VISITSERVICE DATE: 08/27/2017SERVICE TIME: 1110 to 1110ROOM: [place] [address] ( OPERATING ROOM)Attempted Treatment. Patient not seen due to Test/Procedure ( pt havingcholangiogram this a.m.).SIGNATURE: Adela Leong PTA PATIENT NAME: Rocio VizcarraTE: August 27, 2017 : 11:44 AM PAGER/CONTACT #: [phone] Normal [facility] Basic Metabolic Panlon 08-26 Anion gap 11 mmol/L Normal 9-18 [facility] Comment on above: Performed By: #### P T, PTT, AMYL, CMP, LIPA, PHOS ####[place] [phone]#### TRANSF ####[facility] [address] [place] [phone] Calcium 8.7 mg/dL Normal 8.5-10.5 [facility] Comment on above: Performed By: #### P T, PTT, AMYL, CMP, LIPA, PHOS ####[place] [phone]#### TRANSF ####[facility] [address] [place] [phone] Chloride 101 mmol/L Normal 98-110 [facility] Comment on above: Performed By: #### P T, PTT, AMYL, CMP, LIPA, PHOS ####[place] [address]#### TRANSF ####[place] [address] CO2 26 mmol/L Normal 23-32 [facility] Comment on above: Performed By: #### P T, PTT, AMYL, CMP, LIPA, PHOS ####[place] [address]#### TRANSF ####[place] [address] Creatinine 0.58 mg/dL Low 0.70-1.40 [facility] Comment on above: Performed By: #### P T, PTT, AMYL, CMP, LIPA, PHOS ####[place] [address]#### TRANSF ####[place] [address] eGFR (non-black) mL/min/{1.73_m2} Normal >60 [facility] Comment on above: Performed By: #### P T, PTT, AMYL, CMP, LIPA, PHOS ####[place] [address]#### TRANSF ####[place] [address]854[address]5755 Glucose mass conc 124 mg/dL High 65-100 [facility] Comment on above: Performed By: #### P T, PTT, AMYL, CMP, LIPA, PHOS ####[address]#### TRANSF ####[place] [address]5755 Potassium molar conc 4.5 mmol/L Normal 3.5-5.0 [facility] Comment on above: Performed By: #### P T, PTT, AMYL, CMP, LIPA, PHOS ####[place] [address]#### TRANSF ####[place] [address]854[address]5755 Sodium 138 mmol/L Normal 135-146 [facility] Comment on above: Performed By: #### P T, PTT, AMYL, CMP, LIPA, PHOS ####[place] [address]#### TRANSF ####[place] [address]854[address]5755 Urea nitrogen 11 mg/dL Normal 10-25 [facility] Comment on above: Performed By: #### P T, PTT, AMYL, CMP, LIPA, PHOS ####[place] [address]#### TRANSF ####[place] [address]854-5755 CBC and Differentialon 08-26 Abs Baso <0.03 Normal <0.11 [facility] Comment on above: Performed By: #### P T, PTT, AMYL, CMP, LIPA, PHOS ####[place] [address]#### TRANSF ####[place] [address]854[address] Abs Mcduffie 0.57 k/uL Normal <0.87 [facility] Comment on above: Performed By: #### P T, PTT, AMYL, CMP, LIPA, PHOS ####[place] [address]#### TRANSF ####[place] [address]854[address]5755 Abs Neut 4.61 k/uL Normal 1.45-7.50 [facility] Comment on above: Performed By: #### P T, PTT, AMYL, CMP, LIPA, PHOS ####[place] [address]#### TRANSF ####[phone] Basophils/100 WBC Auto (Bld) 0.1 % Normal [facility] Comment on above: Performed By: #### P T, PTT, AMYL, CMP, LIPA, PHOS ####[place] [address]#### TRANSF ####[place] [address]5755 DTYPE Auto Diff Normal [facility] Comment on above: Performed By: #### P T, PTT, AMYL, CMP, LIPA, PHOS ####[place] [address]#### TRANSF ####[place] [address]854-5755 Eosinophils 0.20 10*3/uL Normal <0.46 [facility] Comment on above: Performed By: #### P T, PTT, AMYL, CMP, LIPA, PHOS ####[place] [address]#### TRANSF ####[place] [address]854[address]5755 Eosinophils/100 leukocytes 2.9 % Normal [facility] Comment on above: Performed By: #### P T, PTT, AMYL, CMP, LIPA, PHOS ####[place] [address]#### TRANSF ####[place] [address]854[address]5755 Erythrocyte distribution width Auto Ratio (RBC) 16.0 % High 11.5-15.0 [facility] Comment on above: Performed By: #### P T, PTT, AMYL, CMP, LIPA, PHOS ####[place] [address]#### TRANSF ####[place] [address] Erythrocytes (RBC) 3.00 10*6/uL Low 4.20-6.00 [facility] Comment on above: Performed By: #### P T, PTT, AMYL, CMP, LIPA, PHOS ####[place] [address]#### TRANSF ####[place] [address]5755 Hematocrit (HCT) 26.0 % Low 39.0-51.0 [facility] Comment on above: Performed By: #### P T, PTT, AMYL, CMP, LIPA, PHOS ####[place] [address]#### TRANSF ####[place] [address]5755 Hemoglobin mass conc (Bld) 8.3 g/dL Low 13.0-17.0 [facility] Comment on above: Performed By: #### P T, PTT, AMYL, CMP, LIPA, PHOS ####[place] [address]#### TRANSF ####[place] [address]854-5755 Lymphocytes 1.44 10*3/uL Normal 1.00-4.00 [facility] Comment on above: Performed By: #### P T, PTT, AMYL, CMP, LIPA, PHOS ####[place] [address]#### TRANSF ####[place] [address]854-5755 Lymphocytes/100 leukocytes 21.1 % Normal [facility] Comment on above: Performed By: #### P T, PTT, AMYL, CMP, LIPA, PHOS ####[place] [address]#### TRANSF ####[place] [address]854[address]5755 MCH 27.7 pG Normal 26.0-34.0 [facility] Comment on above: Performed By: #### P T, PTT, AMYL, CMP, LIPA, PHOS ####[place] [address]#### TRANSF ####[place] [address]854[address]5755 MCHC mass conc (RBC) 31.9 g/dL Normal 30.5-36.0 [facility] Comment on above: Performed By: #### P T, PTT, AMYL, CMP, LIPA, PHOS ####[place] [address]#### TRANSF ####[place] [address]755 MCV 86.7 fL Normal 80.0-100.0 [facility] Comment on above: Performed By: #### P T, PTT, AMYL, CMP, LIPA, PHOS ####[place] [address]#### TRANSF ####[place] [address]854-5[address] Monocytes/100 leukocytes 8.3 % Normal [facility] Comment on above: Performed By: #### P T, PTT, AMYL, CMP, LIPA, PHOS ####[place] [address]#### TRANSF ####[place] [phone] Neutrophils/100 WBC Auto (Bld) 67.6 % Normal [facility] Comment on above: Performed By: #### P T, PTT, AMYL, CMP, LIPA, PHOS ####[address]#### TRANSF ####[place] [phone] Platelet mean volume (PMV) 9.5 fL Normal 9.0-12.7 [facility] Comment on above: Performed By: #### P T, PTT, AMYL, CMP, LIPA, PHOS ####[address]#### TRANSF ####[place] [address] Platelets 481 10*3/uL High 150-400 [facility] Comment on above: Performed By: #### P T, PTT, AMYL, CMP, LIPA, PHOS ####[place] [address]#### TRANSF ####[place] [phone] WBC (Leukocytes) 6.83 10*3/uL Normal 3.70-11.00 [facility] Comment on above: Performed By: #### P T, PTT, AMYL, CMP, LIPA, PHOS ####[place] [phone]#### TRANSF ####[place] [phone] Magnesiumon 08-26-2017 Magnesium 2.3 mg/dL Normal 1.7-2.6 [facility] Comment on above: Performed By: #### P T, PTT, AMYL, CMP, LIPA, PHOS ####[phone]#### TRANSF ####[facility] [address] [place], [place] [phone] NURSING PROGon 08-26-2017 NURSING PROG HNO ID: [id number] thor: Saima Kramer (Rn) Debra, RNService: (none)Author Type: Registered NurseType: Nursing Progress NoteFiled: 08/26/2017 7:20 PMNote Text: Nursing Progress NotePatient Name: Rocio Boudreaux: [id number] Location: [place] [address]/[id number] ____Daily Note:IR called and stated that they will not be able to do procedureon pt this evening. Text page to gen surg to make aware.1900: Spoke w/ SROC - full liquid diet ordered and NPO after midnight.This note was completed by: Saima Richardson RN [facility] PROGRESSon 08-26-2017 PROGRESS HNO ID: [id number] thor: Michael Cedillo) AugustinService: General SurgeryAuthor Type: PhysicianType: Progress NotesFiled: 08/26/2017 8:48 PMNote Text:PROGRESS NOTES - SURGICAL SERVICESPATIENT NAME: Rocio JacksonPETRONA: [id number] HISTORY OF PRESENT ILLNESS:No acute events overnight. [...] gravity (billious,1.3L/3S)CBC, Coags, BMP, Mg, PhosRecent Labs 08/25/18035WBC 6.83 5.66 5.48 --HB 8.3* 8.0* 7.9* [...] Gonzales MDDATE: August 26, 2017TIME: 7:46 EMMIE ALVARENGA have independently seen and examined the patient today. I haveindependently reviewed all the imaging and the labs. I agree with keycomponents of the resident's note above. Care plan and decision making hasbeen discussed.Doing okayPending tube cholangiogramToms MD Froilan, MPH, FACSGeneral/Trauma/HPB SurgeryPager: [phone] Cell: [phone] 2017 Normal [facility] Phosphoruson 08-26-2017 Phosphate 3.4 mg/dL Normal 2.5-4.5 [facility] Comment on above: Performed By: #### P T, PTT, AMYL, CMP, LIPA, PHOS ####[facility] [place], [place] [phone]#### TRANSF ####[facility] [address] [place], [place] [phone] ALLIED HEALTHon 08-25-2017 ALLIED HEALTH HNO ID: [id number] thor: Angelita Fernandez) RalphService: Spiritual CareAuthor Type: ChaplainType: Allied HealthFiled: 08/25/2017 10:39 AMNote Text:SPIRITUAL CARE PROGRESS NOTESERVICE DATE: 08/25/2017SERVICE TIME: 10:40amSaw pt on PK3C per Spiritual Care referral. Pt's voodoo is listed as None in his EMR. [...] contact the Spiritual Care Department: Please call [phone].SIGNATURE: Chaplain Tasia PATIENT NAME: Rocio FrischDATE: August 25, 2017 : 10:38 AM PAGER/CONTACT #: [phone] [facility] Basic Metabolic Panlon 08-25 Anion gap 11 mmol/L Normal 9-18 [facility] Comment on above: Performed By: #### P T, PTT, AMYL, CMP, LIPA, PHOS ####[place] [address]#### TRANSF ####[place] [address] Calcium 8.4 mg/dL Low 8.5-10.5 [facility] Comment on above: Performed By: #### P T, PTT, AMYL, CMP, LIPA, PHOS ####[place] [address]#### TRANSF ####[place] [address] Chloride 101 mmol/L Normal 98-110 [facility] Comment on above: Performed By: #### P T, PTT, AMYL, CMP, LIPA, PHOS ####[place] [address]#### TRANSF ####[place] [address] CO2 26 mmol/L Normal 23-32 [facility] Comment on above: Performed By: #### P T, PTT, AMYL, CMP, LIPA, PHOS ####[place] [address]#### TRANSF ####[place] [address] Creatinine 0.62 mg/dL Low 0.70-1.40 [facility] Comment on above: Performed By: #### P T, PTT, AMYL, CMP, LIPA, PHOS ####[place] [address]#### TRANSF ####[place] [id number] eGFR (non-black) mL/min/{1.73_m2} Normal >60 [facility] Comment on above: Performed By: #### P T, PTT, AMYL, CMP, LIPA, PHOS ####[place] [address]#### TRANSF ####[place] [address] Glucose mass conc 118 mg/dL High 65-100 [facility] Comment on above: Performed By: #### P T, PTT, AMYL, CMP, LIPA, PHOS ####[place] [address]#### TRANSF ####[place] [address] Potassium molar conc 4.5 mmol/L Normal 3.5-5.0 [facility] Comment on above: Performed By: #### P T, PTT, AMYL, CMP, LIPA, PHOS ####[place] [address]#### TRANSF ####[place] [address] Sodium 138 mmol/L Normal 135-146 [facility] Comment on above: Performed By: #### P T, PTT, AMYL, CMP, LIPA, PHOS ####[place] [address]#### TRANSF ####[place] [address] Urea nitrogen 10 mg/dL Normal 10-25 [facility] Comment on above: Performed By: #### P T, PTT, AMYL, CMP, LIPA, PHOS ####[place] [address]#### TRANSF ####[place] [address] CASE MANAGEMon 08-25-2017 CASE MANAGEM HNO ID: [id number] thor: Alexandrea Tomas RNService: Care ManagementAuthor Type: Registered NurseType: Care Mgt Progress NoteFiled: 08/25/2017 12:06 PMNote Text:MULTIDISCIPLINARY ROUNDSSERVICE DATE: 08/25/2017 ADMISSION DATE: 08/13/2017SERVICE TIME: 12:03 PM ANTICIPATED D/C DATE: 2-3 daysProblem List:ACTIVE PROBLEM LISTDuodenal ObstructionSevere Protein-Calorie Malnutrition (Hcc)Attendees Present at Rounds:Pit Worker Power Shovel: Chantelleurse Pattern Cutter/Slab Polisher Nurse Pattern Cutter: Taylorocial Worker: Roderick Nurse: Yohannes Discussed on Rounds:DietDischarge NeedsPlan of CareAnticipated Discharge Disposition:Home with Home Health Care vs SNFper discussion with Gerri Espinoza CNP.plan for Cholangiogram tomorrow.Last Vitals: BP 113/66 Pulse 72 Temp (Src) 98.2 (Oral) Resp 16 Ht5' 8 (1.73m) Wt 192 lb (87.1kg) SpO2 98% BMI 29.20 kg/(m2).Pt is accepted at [facility] in [place].Pt also has been accepted by [facility].Nursing: Fluid/Electrolyte Goal Target Achievement Date: 08/26/17Mobility Goal Target Achievement Date: 08/26/17Pain Goal Target Achievement Date: 08/26/17DOCUMENTED BY: Alexandrea Tomas RN PATIENT NAME: Rocio JacksonDATE: August 25, 2017 : 12:03 PM CSN: [id number] Normal [facility] CBC and Differentialon 08-25 Abs Baso <0.03 Normal <0.11 [facility] Comment on above: Performed By: #### P T, PTT, AMYL, CMP, LIPA, PHOS ####[address] [phone]#### TRANSF ####[facility] [place], [place] [phone] Abs Mcduffie 0.46 k/uL Normal <0.87 [facility] Comment on above: Performed By: #### P T, PTT, AMYL, CMP, LIPA, PHOS ####[address] [phone]#### TRANSF ####[place] [address] Abs Neut 3.52 k/uL Normal 1.45-7.50 [facility] Comment on above: Performed By: #### P T, PTT, AMYL, CMP, LIPA, PHOS ####[place] [address]#### TRANSF ####[place] [address] Basophils/100 WBC Auto (Bld) 0.4 % Normal [facility] Comment on above: Performed By: #### P T, PTT, AMYL, CMP, LIPA, PHOS ####[place] [address]#### TRANSF ####[place] [address] DTYPE Auto Diff Normal [facility] Comment on above: Performed By: #### P T, PTT, AMYL, CMP, LIPA, PHOS ####[place] [address]#### TRANSF ####[place] [address] Eosinophils 0.21 10*3/uL Normal <0.46 [facility] Comment on above: Performed By: #### P T, PTT, AMYL, CMP, LIPA, PHOS ####[place] [address]#### TRANSF ####[place] [address] Eosinophils/100 leukocytes 3.7 % Normal [facility] Comment on above: Performed By: #### P T, PTT, AMYL, CMP, LIPA, PHOS ####[place] [address]#### TRANSF ####[place] [address] Erythrocyte distribution width Auto Ratio (RBC) 15.8 % High 11.5-15.0 [facility] Comment on above: Performed By: #### P T, PTT, AMYL, CMP, LIPA, PHOS ####[place] [address]#### TRANSF ####[place] [address] Erythrocytes (RBC) 2.91 10*6/uL Low 4.20-6.00 [facility] Comment on above: Performed By: #### P T, PTT, AMYL, CMP, LIPA, PHOS ####[place] [address]#### TRANSF ####[place] [address] Hematocrit (HCT) 25.6 % Low 39.0-51.0 [facility] Comment on above: Performed By: #### P T, PTT, AMYL, CMP, LIPA, PHOS ####[place] [address]#### TRANSF ####[place] [address] Hemoglobin mass conc (Bld) 8.0 g/dL Low 13.0-17.0 [facility] Comment on above: Performed By: #### P T, PTT, AMYL, CMP, LIPA, PHOS ####[address]#### TRANSF ####[place] [address] Lymphocytes 1.45 10*3/uL Normal 1.00-4.00 [facility] Comment on above: Performed By: #### P T, PTT, AMYL, CMP, LIPA, PHOS ####[place] [address]#### TRANSF ####[place] [address] Lymphocytes/100 leukocytes 25.6 % Normal [facility] Comment on above: Performed By: #### P T, PTT, AMYL, CMP, LIPA, PHOS ####[place] [address]#### TRANSF ####[place] [address] MCH 27.5 pG Normal 26.0-34.0 [facility] Comment on above: Performed By: #### P T, PTT, AMYL, CMP, LIPA, PHOS ####[place] [address]#### TRANSF ####[place] [address] MCHC mass conc (RBC) 31.3 g/dL Normal 30.5-36.0 [facility] Comment on above: Performed By: #### P T, PTT, AMYL, CMP, LIPA, PHOS ####[place] [address]#### TRANSF ####[place] [address] MCV 88.0 fL Normal 80.0-100.0 [facility] Comment on above: Performed By: #### P T, PTT, AMYL, CMP, LIPA, PHOS ####[place] [address]#### TRANSF ####[place] [address] Monocytes/100 leukocytes 8.1 % Normal [facility] Comment on above: Performed By: #### P T, PTT, AMYL, CMP, LIPA, PHOS ####[place] [phone]#### TRANSF ####[place] [phone] Neutrophils/100 WBC Auto (Bld) 62.2 % Normal [facility] Comment on above: Performed By: #### P T, PTT, AMYL, CMP, LIPA, PHOS ####[place] [address]#### TRANSF ####[place] [phone] Platelet mean volume (PMV) 10.1 fL Normal 9.0-12.7 [facility] Comment on above: Performed By: #### P T, PTT, AMYL, CMP, LIPA, PHOS ####[place] [address]#### TRANSF ####[place] [phone] Platelets 444 10*3/uL High 150-400 [facility] Comment on above: Performed By: #### P T, PTT, AMYL, CMP, LIPA, PHOS ####[place] [phone]#### TRANSF ####[place] [phone] WBC (Leukocytes) 5.66 10*3/uL Normal 3.70-11.00 [facility] Comment on above: Performed By: #### P T, PTT, AMYL, CMP, LIPA, PHOS ####[address]#### TRANSF ####[place] [phone] Magnesiumon 08-25-2017 Magnesium 2.3 mg/dL Normal 1.7-2.6 [facility] Comment on above: Performed By: #### P T, PTT, AMYL, CMP, LIPA, PHOS ####[facility] [place], [place] [phone]#### TRANSF ####[facility] [address] [place], [place] [phone] NURSING PROGon 08-25-2017 NURSING PROG HNO ID: [id number] thor: Shavonne KenRn) Tabatha, RNService: NursingAuthor Type: Registered NurseType: Nursing Progress NoteFiled: 08/25/2017 2:30 PMNote Text: Nursing Progress NotePatient Name: Rocio Boudreaux: [id number] Location: [place] [address]/[id number] ____Daily Note:Pt A+Ox3, speech clear, flat affect. 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 Abdomen soft, bowel soundspresent, +Flatus and +BM, [...] was completed by: Shavonne Mays RN Normal [facility] NUTRITIONon 08-25-2017 NUTRITION HNO ID: [id number] thor: Alise Segura) BarsaService: Nutrition TherapyAuthor Type: [...] Weight: 87?kgResting Metabolic Rate: 1661Estimated kilocalorie needs: 3709-5709?kilocalories determined by25-30?kcal/kgEstimated protein needs:113 - ?130?grams determined [...] kg (192 lb) SpO2 97% BMI 29.19 kg/q9Kzgvij Labs GLUC 118*BUN 10CREAT 0.62*NA 138K 4.5CHLOR 101CO2 26HB [...] 5,000 Units SUBCUTANEOUS q 8 Hphenol 1 Candor (CHLORASEPTIC) 1 Candor MUCOUS MEMBRANE (TOPICAL MOUTH ANDTHROAT) q 2 [...] -- 1350 1860 375 855 Output (ml) 2217 2125 1429 1930 629 Net (ml) -2217 -775 431 -1555 226Surgical Incision 08/14/17 0103 Abdomen - Laparoscopy [...] assistance and weekends please page theGroup Pager -[phone] [facility] PROGRESSon 08-25-2017 PROGRESS HNO ID: [id number] thor: Michael Cedillo) AugustinService: General SurgeryAuthor Type: PhysicianType: Progress NotesFiled: 08/25/2017 11:42 AMNote Text:GENERAL SURGERY INPATIENT PROGRESS NOTENAME: Rocio JacksonMRN: [id number] 2017 7:52 AMASSESSMENT AND PLAN:Rocio Jackson is [...] kg (192 lb) SpO2 97% BMI 29.19 kg/s6Tjtokc: Breathing comfortably on RA, speaking in full sentencesAbdominal examination: Abdomen soft, non-distended, mildly tenderTubes/Drains/Stoma: PTHC drain in place, serosanguineous outputFlatus/Bowel movement: Bowel function +Nausea/Emesis: NegativePain Control: IV dilaudid PO tylenolRenal: UOP adequateAntibiotics: AugmentinPending labs/results: None. Culture grew streptococcus mutansDate 08/23/17 0700 - 08/24/17 0659 08/24/17 07 - 08/25/17 0659Shift 7170-5277 8364-5083 5814-9910 24 Hour Total 6090-3965 5677-28066979-2678 24 Hour TotalINTAKE PO 1080 784 38 9422 PO 600 365 48 0838 Supplements (mL) 480 240 720 Shift Total 1080 720 60 1860OUTPUT Urine 3 101 104 0 0 Void (ml) 100 100 0 0 Urine Incontinence/Not Saved 1 x 1 x Urine Not Saved 3 1 4 Emesis 0 0 Emesis (ml) 0 0 Tubes 625 787 900 6011 300 300 Drain/Tube Output (Drain/Tube 08/15/17 1530 Assessment Right UpperAbdomen) 50 50 0 0 Drain/Tube Output (Drain/Tube 08/19/17 1443 Biliary Right Lateral;LowerQuadrant Abdomen) 625 624 169 2367 300 300 # of BMs Number of BMs 2 x 1 x 1 x 4 x 1 x 1 x Shift Total 625 067 261 3473 300 300Weight (kg) 87.1 87.1 87.1 87.1 [...] Ann Thao MD7:52 AM August 25, 2017PAGER: [phone](After 6pm and weekends please contact Surgery oncall [...] cap Noah Jolley MD, MPH, FACSGeneral/Trauma/HPB SurgeryPager: [phone] Cell: [phone] 2017 Normal [facility] Phosphoruson 08-25-2017 Phosphate 3.0 mg/dL Normal 2.5-4.5 [facility] Comment on above: Performed By: #### P T, PTT, AMYL, CMP, LIPA, PHOS ####[facility] [place], [place] [phone]#### TRANSF ####[facility] [address] [place], [place] [phone] THERAPY NTon 08-25-2017 THERAPY NT HNO ID: [id number] thor: Sujata (Pt) PapcunService: Physical TherapyAuthor Type: Physical TherapistType: Therapy (PT/OT/Speech/Resp)Filed: 08/25/2017 12:18 PMNote Text:Physical Therapy TreatmentSERVICE DATE: 08/25/2017SERVICE TIME: 1143 to 1206ROOM: [place] [address] ( OPERATING ROOM)Recommended Discharge Disposition: Home PTRecommended [...] internal biliary drain placement;[facility]. Requires skilled PT for forimprovement of [...] Reduced mobility-other;Muscle Weakness (generalized)Interventions Provided: Therapeutic Exercise (75960);Gait Training (80917)Therapeutic Exercise (55769) Treatment Minutes: 121 unitSkilled Intervention(s): Instruction in therapeutic exercise BLE seatedfor strengthening, cues for tempo.Gait Training (23041) Treatment Minutes: 111 unitSkilled Intervention(s): Instruction in [...] 25, 2017 : 12:16 PM PAGER/CONTACT #: [phone] [facility] ALLIED HEALTHon 08-24-2017 ALLIED HEALTH HNO ID: [id number] thor: Albert Sutherland: (none)Author Type: (none)Type: Allied HealthFiled: 08/24/2017 6:37 PMNote Text: Radiology Service Progress NotePATIENT NAME: Rocio JacksonMRN: [id number] OF SERVICE: August 24, 2017TIME: 6:37 PMPATIENT IDENTITY VERIFICATION COMPLETED USING TWO (2) METHODS: Patientconfirmed name verbally and ID band matches..PATIENT GENDER DATA: MalePATIENT RELEVANT IMPLANT DATA REVIEWED: Not ApplicableRADIOLOGY DEPARTMENT: CT; Exam(s) Completed: Abdomen/PelvisPERIPHERAL IV DATA: Inpatient: see LDA documentationSIGNED BY: Albert Vaughan 2017 6:37 PM [facility] CASE MANAGEMon 08-24-2017 CASE MANAGEM HNO ID: [id number] thor: Alexandrea (Rn) Thom, RNService: Care ManagementAuthor [...] he feels weeker, he [facility] SN[facility],A list was given to pt.PT OT updates are needed.A Precert is needed.Pt is on Full Liquid dietSIGNATURE: Alexandrea Tomas RN PATIENT NAME: Rocio VizcarraTE: August 24, 2017 : 10:39 AM PAGER/CONTACT #: [phone] Normal [facility] CBC and Differentialon 08-24 Abs Baso <0.03 Normal <0.11 [facility] Comment on above: Performed By: #### P T, PTT, AMYL, CMP, LIPA, PHOS ####[place] [phone]#### TRANSF ####[facility] [place], [place] [phone] Abs Mcduffie 0.51 k/uL Normal <0.87 [facility] Comment on above: Performed By: #### P T, PTT, AMYL, CMP, LIPA, PHOS ####[place] [phone]#### TRANSF ####[facility] [address] [place] [phone] Abs Neut 3.42 k/uL Normal 1.45-7.50 [facility] Comment on above: Performed By: #### P T, PTT, AMYL, CMP, LIPA, PHOS ####[place] [address]#### TRANSF ####[place] [address] Basophils/100 WBC Auto (Bld) 0.4 % Normal [facility] Comment on above: Performed By: #### P T, PTT, AMYL, CMP, LIPA, PHOS ####[place] [address]#### TRANSF ####[place] [address]5755 DTYPE Auto Diff [facility] Comment on above: Performed By: #### P T, PTT, AMYL, CMP, LIPA, PHOS ####[place] [address]#### TRANSF ####[place] [address]854-5[address] Eosinophils 0.17 10*3/uL Normal <0.46 [facility] Comment on above: Performed By: #### P T, PTT, AMYL, CMP, LIPA, PHOS ####[place] [address]#### TRANSF ####[place] [address]854[address] Eosinophils/100 leukocytes 3.1 % Normal [facility] Comment on above: Performed By: #### P T, PTT, AMYL, CMP, LIPA, PHOS ####[place] [address]#### TRANSF ####[place] [address]854[address] Erythrocyte distribution width Auto Ratio (RBC) 16.1 % High 11.5-15.0 [facility] Comment on above: Performed By: #### P T, PTT, AMYL, CMP, LIPA, PHOS ####[place] [address]#### TRANSF ####[place] [address] Erythrocytes (RBC) 2.87 10*6/uL Low 4.20-6.00 [facility] Comment on above: Performed By: #### P T, PTT, AMYL, CMP, LIPA, PHOS ####[place] [address]#### TRANSF ####[place] [address]854-5755 Hematocrit (HCT) 25.2 % Low 39.0-51.0 [facility] Comment on above: Performed By: #### P T, PTT, AMYL, CMP, LIPA, PHOS ####[place] [address]#### TRANSF ####[place] [address] Hemoglobin mass conc (Bld) 7.9 g/dL Low 13.0-17.0 [facility] Comment on above: Performed By: #### P T, PTT, AMYL, CMP, LIPA, PHOS ####[place] [address]#### TRANSF ####[place] [address]-5[address] Lymphocytes 1.36 10*3/uL Normal 1.00-4.00 [facility] Comment on above: Performed By: #### P T, PTT, AMYL, CMP, LIPA, PHOS ####[place] [address]#### TRANSF ####[place] [address] Lymphocytes/100 leukocytes 24.8 % Normal [facility] Comment on above: Performed By: #### P T, PTT, AMYL, CMP, LIPA, PHOS ####[place] [address]#### TRANSF ####[place] [address]-5755 MCH 27.5 pG Normal 26.0-34.0 [facility] Comment on above: Performed By: #### P T, PTT, AMYL, CMP, LIPA, PHOS ####[place] [address]#### TRANSF ####[place] [address]854[address]5755 MCHC mass conc (RBC) 31.3 g/dL Normal 30.5-36.0 [facility] Comment on above: Performed By: #### P T, PTT, AMYL, CMP, LIPA, PHOS ####[place] [address]#### TRANSF ####[place] [address]-5755 MCV 87.8 fL Normal 80.0-100.0 [facility] Comment on above: Performed By: #### P T, PTT, AMYL, CMP, LIPA, PHOS ####[place] [address]#### TRANSF ####[place] [address] Monocytes/100 leukocytes 9.3 % Normal [facility] Comment on above: Performed By: #### P T, PTT, AMYL, CMP, LIPA, PHOS ####[place] [address]#### TRANSF ####[place] [phone] Neutrophils/100 WBC Auto (Bld) 62.4 % Normal [facility] Comment on above: Performed By: #### P T, PTT, AMYL, CMP, LIPA, PHOS ####[place] [address]71[address]#### TRANSF ####[place] [phone] Platelet mean volume (PMV) 9.6 fL Normal 9.0-12.7 [facility] Comment on above: Performed By: #### P T, PTT, AMYL, CMP, LIPA, PHOS ####[place] 165796-71[address]#### TRANSF ####[place] [phone] Platelets 393 10*3/uL Normal 150-400 [facility] Comment on above: Performed By: #### P T, PTT, AMYL, CMP, LIPA, PHOS ####[address]#### TRANSF ####[place] [phone] WBC (Leukocytes) 5.48 10*3/uL Normal 3.70-11.00 [facility] Comment on above: Performed By: #### P T, PTT, AMYL, CMP, LIPA, PHOS ####[place] 165796-71[address]#### TRANSF ####[place] [phone] CT ABD/PEL WO IVCONon 2017 CT ABD/PEL [...] DRAIN PLACEMENT.NEAR COMPLETE RESOLUTION OF PARA/SUBHEPATIC FLUID COLLECTION.Global Marketing Specialist: PSCShefali Transcribe Date/Time: Aug 25 2017 8:07ADictated by : ASHLEY MORALES MDThis examination was interpreted and the report reviewed and electronically signed by: ASHLEY MORALES MD on Aug 25 2017 8:40AM [id number] Normal [facility] Magnesiumon 08-24-2017 Magnesium 2.3 mg/dL Normal 1.7-2.6 [facility] Comment on above: Performed By: #### P T, PTT, AMYL, CMP, LIPA, PHOS ####[facility] [place], [place] [phone]#### TRANSF ####[facility] [place], [place] [phone] NURSING PROGon 08-24-2017 NURSING PROG HNO ID: [id number] thor: Shavonne KenRn) Tabatha, RNService: NursingAuthor Type: Registered NurseType: Nursing Progress NoteFiled: 08/24/2017 4:58 PMNote Text: Nursing Progress NotePatient Name: Rocio TorresBryannaN: [id number] Location: [place] [address]/[id number] ____Daily Note:Pt A+Ox3, flat affect, quiet. Speech clear. Skin pale and slightlyjaundiced. NSR on tube room cashier. Abdomen soft and tender, 3 lap sitesOTA [...] note was completed by: Shavonne Mays RN [facility] PROGRESSon 08-24-2017 PROGRESS HNO ID: [id number] thor: Michael Cedillo) AugustinService: General SurgeryAuthor Type: PhysicianType: Progress NotesFiled: 08/24/2017 4:45 PMNote Text:GENERAL SURGERY INPATIENT PROGRESS NOTENAME: Rocio Boudreaux: [id number] 2017 8:43 AMASSESSMENT AND PLAN:Rocio Jackson is [...] kg (192 lb) SpO2 97% BMI 29.19 kg/e7Sbbuxo: Breathing comfortably on RA, speaking in full sentencesAbdominal examination: Abdomen soft, non-distended, mildly tenderTubes/Drains/Stoma: PTHC drain in place, serosanguineous output, 1275mlFlatus/Bowel movement: Bowel function +Nausea/Emesis: NegativePain Control: IV dilaudid PO tylenolRenal: UOP adequateAntibiotics: AugmentinPending labs/results: None. Culture grew streptococcus mutansDate 08/23/17 0700 - 08/24/17 0659 08/24/17 0700 - 08/25/17 0659Shift 1373-4822 5104-8473 0664-8390 24 Hour Total 0147-1125 [id number] 24 Hour TotalINTAKE PO 1080 384 72 2141 PO 600 806 88 1545 Supplements (mL) 480 240 720 Shift Total 1080 720 60 1860OUTPUT Urine 3 101 104 0 0 Void (ml) 100 100 0 0 Urine Incontinence/Not Saved 1 x 1 x Urine Not Saved 3 1 4 Emesis 0 0 Emesis (ml) 0 0 Tubes 625 365 441 5516 300 300 Drain/Tube Output (Drain/Tube 08/15/17 1530 Assessment Right UpperAbdomen) 50 50 0 0 Drain/Tube Output (Drain/Tube 08/19/17 1443 Biliary Right Lateral;LowerQuadrant Abdomen) 625 136 549 6199 300 300 # of BMs Number of BMs 2 x 1 x 1 x 4 x 1 x 1 x Shift Total 625 077 884 7472 300 300Weight (kg) 87.1 87.1 87.1 87.1 [...] and changes will bemade where applicable.Serena Trent MDGenetoledo [facility] Surgery, PGY - 1Pager #: [phone](After 6pm and weekends please contact Surgery oncall team)STAFF NOTEI have independently seen and examined the patient today. I haveindependently reviewed all the imaging and the labs. I agree with keycomponents of the resident's note above. Care plan and decision making hasbeen discussed.Doing well, no complaintsWill get CT to assess status of collectionsPTC cholangiogram to look for active leaksToms MD Froilan, MPH, FACSGeneral/Trauma/HPB SurgeryPager: [phone] Cell: [phone] 2017 Normal [facility] Phosphoruson 08-24-2017 Phosphate 2.6 mg/dL Normal 2.5-4.5 [facility] Comment on above: Performed By: #### P T, PTT, AMYL, CMP, LIPA, PHOS ####[facility] [place], [place] [phone]#### TRANSF ####[facility] [address] [place], [place] [phone] THERAPY NTon 08-24-2017 THERAPY NT HNO ID: [id number] thor: Mandi (Ot) GarnekService: Occupational TherapyAuthor Type: Occupational TherapistType: Therapy (PT/OT/Speech/Resp)Filed: 08/24/2017 1:30 PMNote Text:Occupational Therapy TreatmentSERVICE DATE: 08/24/2017SERVICE TIME: 1245 to 1300ROOM: [place] [address] ( OPERATING ROOM)Admit with Emesis X 1 Month, Abdominal Pain, Partial Duodenal Obstructionand Obstructive Jaundice, Abdominal Abscess, S/P CT Guided AbscessDrainage 08/15/17, S/P Recent Cholecystectomy 08/11/17, and ERCP 08/13/17?Recommended Discharge Disposition: Subacute/SNFRecommended Discharge Disposition Comments: (Pt [place] continue therapyin SNF in [place])Anticipated Discharge Needs: Physical Assist at HomePhysical Assist at Home for: Ambulation;Cleaning;Laundry; Meals;MedicationManagement;S tairs;Self Care;Shopping;Transportation Recommended Discharge Equipment: Elastic Shoe Laces;Grab Bars-Shower;HandHeld Shower;Long Handled Shoe Horn;Long Handled Sponge;WheeledWalker;Systems Design Engineer ;Sock Aide;Shower ChairOT Recommendations to Nursing: OOB [...] History Relevantto Therapy Includes: DM, Glaucoma, HTN, OR. For Complete Past MedicalHistory Please Refer to [facility]. Pt presents with decreased ability tocomplete ADL's requiring assist at this time. Pt also presents withdecreased activity tolerance, functional mobility, strength, and safety.Pt requires skilled OT services to address progression of ADL's,functional mobility, strength, increase activity tolerance, and safety.Pt has adequate support and social structure for reasonably safe dischargehome at current level. 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 Pt has a small [...] dailyliving (ADL);Muscle Weakness (generalized)Interventions Provided: Therapeutic Activity (23555)Therapeutic Activity (01564) Treatment Minutes: 151 unitSkilled Intervention(s): Instructed patient [...] (08/24/17 124)Self Care Current Status (G8987): CK (08/24/17 124)Self Care Goal Status (G8988): CJ (08/24/171244)Based on [...] evaluation/treatment.HEBER RE: WENDY Arceo/Timo PATIENT NAME: Rocio VizcarraTE: August 24, 2017 : 1:28 PM PAGER: [phone] [facility] THERAPY NT HNO ID: [id number] thor: Adela Holcomb) Carlin: Physical TherapyAuthor Type: Physical Therapy AssistantType: Therapy (PT/OT/Speech/Resp)Filed: 08/24/2017 10:53 AMNote Text: -Attestation signed by Tonia Schmitz at 08/24/2017 12:43 PMI reviewed and agree with the documentation corresponding to this therapyvisit.SIGNATURE: Tonia Schmitz, PTDATE: August 24, 2017TIME: 12:43 PM Ph ysical Therapy TreatmentSERVICE DATE: 08/24/2017SERVICE TIME: 1015 to 1040ROOM: -NB6K-03 ( OPERATING ROOM)Abdominal abscess; S/ P cholestectomy [...] Weakness (generalized);General symptoms andsigns-otherInterventions Provided: Therapeutic Exercise (96990);Gait Training (29697)Therapeutic Exercise (71557) Treatment Minutes: 101 unitSkilled Intervention(s): Instruction in therapeutic exercise for B LEstrengthening, balanceVerbal and tactile cuing provided for pace and performance; rest breaksprovided as neededGait Training (50456) Treatment Minutes: 151 unitSkilled Intervention(s): Instruction in [...] 24, 2017 : 10:46 AM PAGER/CONTACT #: [phone] Normal [facility] [employer] Basic Metabolic Panlon 08-23 Anion gap 10 mmol/L Normal 9-18 [facility] Comment on above: Performed By: #### P T, PTT, AMYL, CMP, LIPA, PHOS ####[place] [address]#### TRANSF ####[place] [address] [place] [address] Calcium 7.7 mg/dL Low 8.5-10.5 [facility] Comment on above: Performed By: #### P T, PTT, AMYL, CMP, LIPA, PHOS ####[place] [address]#### TRANSF ####[place] [address] [place] [address] Chloride 104 mmol/L Normal 98-110 [facility] Comment on above: Performed By: #### P T, PTT, AMYL, CMP, LIPA, PHOS ####[place] [address]#### TRANSF ####[place] [address] [place] [address] CO2 25 mmol/L Normal 23-32 [facility] Comment on above: Performed By: #### P T, PTT, AMYL, CMP, LIPA, PHOS ####[place] [address]#### TRANSF ####[place] [address] [place] [address] Creatinine 0.55 mg/dL Low 0.70-1.40 [facility] Comment on above: Performed By: #### P T, PTT, AMYL, CMP, LIPA, PHOS ####[place] 165796[address]71[address]#### TRANSF ####[place] [address] eGFR (non-black) mL/min/{1.73_m2} Normal >60 [facility] Comment on above: Performed By: #### P T, PTT, AMYL, CMP, LIPA, PHOS ####[place] [address]#### TRANSF ####[place] [address] Glucose mass conc 123 mg/dL High 65-100 [facility] Comment on above: Performed By: #### P T, PTT, AMYL, CMP, LIPA, PHOS ####[place] [address]#### TRANSF ####[place] [address] Potassium molar conc 4.1 mmol/L Normal 3.5-5.0 [facility] Comment on above: Performed By: #### P T, PTT, AMYL, CMP, LIPA, PHOS ####[place] [address]#### TRANSF ####[place] [address] Sodium 139 mmol/L Normal 135-146 [facility] Comment on above: Performed By: #### P T, PTT, AMYL, CMP, LIPA, PHOS ####[place] [address]#### TRANSF ####[place] [address] Urea nitrogen 10 mg/dL Normal 10-25 [facility] Comment on above: Performed By: #### P T, PTT, AMYL, CMP, LIPA, PHOS ####[facility] [place], [place] [phone]#### TRANSF ####[facility] [place], [place] [phone] Magnesiumon 08-23-2017 Magnesium 2.3 mg/dL Normal 1.7-2.6 [facility] Comment on above: Performed By: #### P T, PTT, AMYL, CMP, LIPA, PHOS ####[place] [address] [place], [place] [phone]#### TRANSF ####[place] [address] [place], [place] [phone] PROGRESSon 08-23-2017 PROGRESS HNO ID: [id number] thor: Jose Damon: General SurgeryAuthor Type: PhysicianType: Progress NotesFiled: 08/23/2017 1:57 PMNote Text:PROGRESS NOTES - SURGICAL SERVICESPATIENT NAME: Rocio Boudreaux: [id number] HISTORY OF PRESENT ILLNESS:No acute events overnight. [...] Continue inpatient admissionSIGNATURE: Kayleen Gonzales, MDDATE: August 23, 2017TIME: 9:16 AMPatient has [...] stable.Jose Manning MDFebruary 2017 1:57 PM Normal [facility] [facility] Phosphoruson 08-23-2017 Phosphate 2.4 mg/dL Low 2.5-4.5 [facility] Comment on above: Performed By: #### P T, PTT, AMYL, CMP, LIPA, PHOS ####[place] [address]#### TRANSF ####[place] [address] Basic Metabolic Panlon 08-22 Anion gap 9 mmol/L Normal 9-18 [facility] Comment on above: Performed By: #### P T, PTT, AMYL, CMP, LIPA, PHOS ####[place] [address]#### TRANSF ####[place] [address] Calcium 7.7 mg/dL Low 8.5-10.5 [facility] Comment on above: Performed By: #### P T, PTT, AMYL, CMP, LIPA, PHOS ####[place] [address]#### TRANSF ####[place] [address] Chloride 105 mmol/L Normal 98-110 [facility] Comment on above: Performed By: #### P T, PTT, AMYL, CMP, LIPA, PHOS ####[place] [address]#### TRANSF ####[place] [address] CO2 25 mmol/L Normal 23-32 [facility] Comment on above: Performed By: #### P T, PTT, AMYL, CMP, LIPA, PHOS ####[place] [address]#### TRANSF ####[place] [address] Creatinine 0.57 mg/dL Low 0.70-1.40 [facility] Comment on above: Performed By: #### P T, PTT, AMYL, CMP, LIPA, PHOS ####[place] [address]#### TRANSF ####[place] [address] eGFR (non-black) mL/min/{1.73_m2} Normal >60 [facility] Comment on above: Performed By: #### P T, PTT, AMYL, CMP, LIPA, PHOS ####[place] [address]#### TRANSF ####[place] [address] Glucose mass conc 111 mg/dL High 65-100 [facility] Comment on above: Performed By: #### P T, PTT, AMYL, CMP, LIPA, PHOS ####[place] [address]#### TRANSF ####[place] [address] Potassium molar conc 3.7 mmol/L Normal 3.5-5.0 [facility] Comment on above: Performed By: #### P T, PTT, AMYL, CMP, LIPA, PHOS ####[place] [address]#### TRANSF ####[place] [address] Sodium 139 mmol/L Normal 135-146 [facility] Comment on above: Performed By: #### P T, PTT, AMYL, CMP, LIPA, PHOS ####[place] [address]#### TRANSF ####[place] [address] Urea nitrogen 8 mg/dL Low 10-25 [facility] Comment on above: Performed By: #### P T, PTT, AMYL, CMP, LIPA, PHOS ####[place] [address]#### TRANSF ####[phone] CBC and Differentialon 08-22 Abs Baso <0.03 Normal <0.11 [facility] Comment on above: Performed By: #### P T, PTT, AMYL, CMP, LIPA, PHOS ####[place] [address]#### TRANSF ####[phone] Abs Mcduffie 0.41 k/uL Normal <0.87 [facility] Comment on above: Performed By: #### P T, PTT, AMYL, CMP, LIPA, PHOS ####[place] [address]#### TRANSF ####[phone] Abs Neut 3.57 k/uL Normal 1.45-7.50 [facility] Comment on above: Performed By: #### P T, PTT, AMYL, CMP, LIPA, PHOS ####[place] [address]#### TRANSF ####[place] [address] Basophils/100 WBC Auto (Bld) 0.2 % Normal [facility] Comment on above: Performed By: #### P T, PTT, AMYL, CMP, LIPA, PHOS ####[place] [address]#### TRANSF ####[place] [address] DTYPE Auto Diff Normal [facility] Comment on above: Performed By: #### P T, PTT, AMYL, CMP, LIPA, PHOS ####[place] [address]#### TRANSF ####[place] [address] [place] [phone] Eosinophils 0.15 10*3/uL Normal <0.46 [facility] Comment on above: Performed By: #### P T, PTT, AMYL, CMP, LIPA, PHOS ####[place] [address]#### TRANSF ####[address] [place] [phone] Eosinophils/100 leukocytes 2.9 % Normal [facility] Comment on above: Performed By: #### P T, PTT, AMYL, CMP, LIPA, PHOS ####[place] [address]#### TRANSF ####[place] [address] Erythrocyte distribution width Auto Ratio (RBC) 16.1 % High 11.5-15.0 [facility] Comment on above: Performed By: #### P T, PTT, AMYL, CMP, LIPA, PHOS ####[place] [address]#### TRANSF ####[place] [address] [place] [address] [phone] Erythrocytes (RBC) 2.90 10*6/uL Low 4.20-6.00 [facility] Comment on above: Performed By: #### P T, PTT, AMYL, CMP, LIPA, PHOS ####[place] [address]#### TRANSF ####[place] [address] [place] [place] [phone] Hematocrit (HCT) 25.0 % Low 39.0-51.0 [facility] Comment on above: Performed By: #### P T, PTT, AMYL, CMP, LIPA, PHOS ####[place] [address]#### TRANSF ####[place] [address] Hemoglobin mass conc (Bld) 8.1 g/dL Low 13.0-17.0 [facility] Comment on above: Performed By: #### P T, PTT, AMYL, CMP, LIPA, PHOS ####[place] [address]#### TRANSF ####[place] [address] Lymphocytes 1.09 10*3/uL Normal 1.00-4.00 [facility] Comment on above: Performed By: #### P T, PTT, AMYL, CMP, LIPA, PHOS ####[place] [address]#### TRANSF ####[place] [address] Lymphocytes/100 leukocytes 20.8 % Normal [facility] Comment on above: Performed By: #### P T, PTT, AMYL, CMP, LIPA, PHOS ####[place] [address]#### TRANSF ####[place] [address] MCH 27.9 pG Normal 26.0-34.0 [facility] Comment on above: Performed By: #### P T, PTT, AMYL, CMP, LIPA, PHOS ####[place] [address]#### TRANSF ####[place] [address] MCHC mass conc (RBC) 32.4 g/dL Normal 30.5-36.0 [facility] Comment on above: Performed By: #### P T, PTT, AMYL, CMP, LIPA, PHOS ####[place] [address]#### TRANSF ####[place] [address] MCV 86.2 fL Normal 80.0-100.0 [facility] Comment on above: Performed By: #### P T, PTT, AMYL, CMP, LIPA, PHOS ####[place] [address]#### TRANSF ####[place] [address] Monocytes/100 leukocytes 7.8 % Normal [facility] Comment on above: Performed By: #### P T, PTT, AMYL, CMP, LIPA, PHOS ####[place] [address]#### TRANSF ####[place] [address] Neutrophils/100 WBC Auto (Bld) 68.3 % Normal [facility] Comment on above: Performed By: #### P T, PTT, AMYL, CMP, LIPA, PHOS ####[place] [address]#### TRANSF ####[place] [address] Platelet mean volume (PMV) 9.9 fL Normal 9.0-12.7 [facility] Comment on above: Performed By: #### P T, PTT, AMYL, CMP, LIPA, PHOS ####[address]#### TRANSF ####[facility] [place], [place] [phone] Platelets 354 10*3/uL Normal 150-400 [facility] Comment on above: Performed By: #### P T, PTT, AMYL, CMP, LIPA, PHOS ####[address] [phone]#### TRANSF ####[address] [phone] WBC (Leukocytes) 5.23 10*3/uL Normal 3.70-11.00 [facility] Comment on above: Performed By: #### P T, PTT, AMYL, CMP, LIPA, PHOS ####[address] [phone]#### TRANSF ####[address] [phone] CONSULT PROGon 08-22-2017 CONSULT PROG HNO ID: [id number] thor: Sabrina ([facility]) PineiroService: Cardiovascular DiseaseAuthor Type: Nurse PractitionerType: [...] 5,000 Units SUBCUTANEOUS q 8 Hphenol 1 Candor (CHLORASEPTIC) 1 Candor MUCOUS MEMBRANE (TOPICAL MOUTH ANDTHROAT) q 2 [...] 2.9 2.9Liver Function, Amylase, AND LipaseRecent Labs [id number] 5.3*ALB 2.1*ALT 55*AST 42*ALKPHOS 241*TBILI 0.7SIGNATURE: Sabrina Arango CNP PATIENT NAME: Rocio TorresdonnyDATE: August 22, 2017 : 2:37 PM PAGER/CONTACT #: Normal [facility] Magnesiumon 08-22-2017 Magnesium 2.3 mg/dL Normal 1.7-2.6 [facility] Comment on above: Performed By: #### P T, PTT, AMYL, CMP, LIPA, PHOS ####[facility] [place] [phone]#### TRANSF ####[facility] [address] [place], [place] [phone] NUTRITIONon 08-22-2017 NUTRITION HNO ID: [id number] thor: Alise Segura) BarsaService: Nutrition TherapyAuthor Type: [...] Weight: 87?kgResting Metabolic Rate: 1661Estimated kilocalorie needs: 2918-6534?kilocalories determined by25-28?kcal/kgEstimated protein needs:113 - ?130?grams determined [...] 5,000 Units SUBCUTANEOUS q 8 Hphenol 1 Candor (CHLORASEPTIC) 1 Candor MUCOUS MEMBRANE (TOPICAL MOUTH ANDTHROAT) q 2 [...] assistance and weekends please page theGroup Pager [phone] [facility] PROGRESSon 08-22-2017 PROGRESS HNO ID: [id number] thor: Jose Damon: General SurgeryAuthor Type: PhysicianType: Progress NotesFiled: 08/22/2017 3:31 PMNote Text:PROGRESS NOTES - SURGICAL SERVICESPATIENT NAME: Rocio Boudreaux: [id number] HISTORY OF PRESENT ILLNESS:No acute events overnight. [...] (at the bulb suction) and cap to PTH- CM for home drain management-Dispo: Continue inpatient admissionSIGNATURE: Kayleen Gonzales, MDDATE: August 22, 2017TIME: 8:18 AMPatient denies any abdominal pain. Still gets full with only liquids.ROMINA serosang, no bileOther biloma drain bile tinged, but SS.PTC increased output to 1.2L? only temporary success to duodenal dilation.Will watch PTC output.Possible DC soon.Jose Manning MDFebruary 2017 3:31 PM Normal [facility] Phosphoruson 08-22-2017 Phosphate 2.6 mg/dL Normal 2.5-4.5 [facility] Comment on above: Performed By: #### P T, PTT, AMYL, CMP, LIPA, PHOS ####[facility] [place], [place] [phone]#### TRANSF ####[facility] [address] [place] [phone] CASE MANAGEMon 08-21-2017 CASE MANAGEM HNO ID: [id number] thor: Alexandrea (Rn) Thom, MOUSTAPHAervice: Care ManagementAuthor Type: Registered NurseType: Care Mgt Progress NoteFiled: 08/21/2017 3:26 PMNote Text:CARE MANAGEMENT PROGRESS NOTESERVICE DATE: 08/21/2017SERVICE TIME: 10:02 AM LOS: 8 daysNeeds Prior to Discharge: To Be Determined;OT/PT EvaluationPer discussion with Dr Duffy.[facility] is planned at [place].PT OT evals are needed, pt may also need Home PT OT.[facility] accepted pt for drain care.Pt will stay with his sister. Briana Muller at [place].3 [facility] [address] was notified.[facility] for SN PT OT is planned.[facility] was updated.SIGNATURE: Alexandrea Tomas RN PATIENT NAME: Rocio VizcarraTE: August 21, 2017 : 10:01 AM PAGER/CONTACT #: [phone] Normal [facility] CBC and Differentialon 08-21 Abs Baso <0.03 Normal <0.11 [facility] Comment on above: Performed By: #### P T, PTT, AMYL, CMP, LIPA, PHOS ####[place] [address]#### TRANSF ####[place] [address] Abs Mcduffie 0.43 k/uL Normal <0.87 [facility] Comment on above: Performed By: #### P T, PTT, AMYL, CMP, LIPA, PHOS ####[place] [address]#### TRANSF ####[place] [address] Abs Neut 4.17 k/uL Normal 1.45-7.50 [facility] Comment on above: Performed By: #### P T, PTT, AMYL, CMP, LIPA, PHOS ####[place] [address]#### TRANSF ####[place] [address] Basophils/100 WBC Auto (Bld) 0.4 % Normal [facility] Comment on above: Performed By: #### P T, PTT, AMYL, CMP, LIPA, PHOS ####[place] [address]#### TRANSF ####[address] [phone] DTYPE Auto Diff Normal [facility] Comment on above: Performed By: #### P T, PTT, AMYL, CMP, LIPA, PHOS ####[place] [address]#### TRANSF ####[place] [address] Eosinophils 0.18 10*3/uL Normal <0.46 [facility] Comment on above: Performed By: #### P T, PTT, AMYL, CMP, LIPA, PHOS ####[place] [address]#### TRANSF ####[place] [address] Eosinophils/100 leukocytes 3.2 % Normal [facility] Comment on above: Performed By: #### P T, PTT, AMYL, CMP, LIPA, PHOS ####[place] [address]#### TRANSF ####[place] [address] Erythrocyte distribution width Auto Ratio (RBC) 15.9 % High 11.5-15.0 [facility] Comment on above: Performed By: #### P T, PTT, AMYL, CMP, LIPA, PHOS ####[place] [address]#### TRANSF ####[place] [address] Erythrocytes (RBC) 3.16 10*6/uL Low 4.20-6.00 [facility] Comment on above: Performed By: #### P T, PTT, AMYL, CMP, LIPA, PHOS ####[place] [address]#### TRANSF ####[place] [address] Hematocrit (HCT) 27.9 % Low 39.0-51.0 [facility] Comment on above: Performed By: #### P T, PTT, AMYL, CMP, LIPA, PHOS ####[place] [address]#### TRANSF ####[place] [address] Hemoglobin mass conc (Bld) 8.9 g/dL Low 13.0-17.0 [facility] Comment on above: Performed By: #### P T, PTT, AMYL, CMP, LIPA, PHOS ####[place] [address]#### TRANSF ####[place] [address] Lymphocytes 0.84 10*3/uL Low 1.00-4.00 [facility] Comment on above: Performed By: #### P T, PTT, AMYL, CMP, LIPA, PHOS ####[place] [address]#### TRANSF ####[place] [address] Lymphocytes/100 leukocytes 14.9 % Normal [facility] Comment on above: Performed By: #### P T, PTT, AMYL, CMP, LIPA, PHOS ####[place] [address]#### TRANSF ####[place] [address] MCH 28.2 pG Normal 26.0-34.0 [facility] Comment on above: Performed By: #### P T, PTT, AMYL, CMP, LIPA, PHOS ####[place] [address]#### TRANSF ####[place] [address] MCHC mass conc (RBC) 31.9 g/dL Normal 30.5-36.0 [facility] Comment on above: Performed By: #### P T, PTT, AMYL, CMP, LIPA, PHOS ####[address]#### TRANSF ####[place] [address] MCV 88.3 fL Normal 80.0-100.0 [facility] Comment on above: Performed By: #### P T, PTT, AMYL, CMP, LIPA, PHOS ####[address]#### TRANSF ####[place] [address] Monocytes/100 leukocytes 7.6 % Normal [facility] Comment on above: Performed By: #### P T, PTT, AMYL, CMP, LIPA, PHOS ####[address]#### TRANSF ####[place] [address] Neutrophils/100 WBC Auto (Bld) 73.9 % Normal [facility] Comment on above: Performed By: #### P T, PTT, AMYL, CMP, LIPA, PHOS ####[address]#### TRANSF ####[place] [address] Platelet mean volume (PMV) 10.1 fL Normal 9.0-12.7 [facility] Comment on above: Performed By: #### P T, PTT, AMYL, CMP, LIPA, PHOS ####[address]#### TRANSF ####[address] [phone] Platelets 380 10*3/uL Normal 150-400 [facility] Comment on above: Performed By: #### P T, PTT, AMYL, CMP, LIPA, PHOS ####[place] [phone]#### TRANSF ####[address] [phone] WBC (Leukocytes) 5.64 10*3/uL Normal 3.70-11.00 [facility] Comment on above: Performed By: #### P T, PTT, AMYL, CMP, LIPA, PHOS ####[place] [phone]#### TRANSF ####[address] [phone] CONSULT PROGon 08-21-2017 CONSULT PROG HNO ID: [id number] thor: Jessee Lottervice: Cardiovascular DiseaseAuthor Type: PhysicianType: [...] 5,000 Units SUBCUTANEOUS q 8 Hphenol 1 Candor (CHLORASEPTIC) 1 Candor MUCOUS MEMBRANE (TOPICAL MOUTH ANDTHROAT) q 2 [...] 0.9SIGNATURE: Sabrina Arango CNP PATIENT NAME: Rocio aJcksonDATE: August 21, 2017 : 2:42 PM PAGER/CONTACT #: [facility] CONSULT PROG HNO ID: [id number] thor: Linda ([facility]) BinhaService: GastroenterologyAuthor Type: Nurse PractitionerType: Consult [...] 5,000 Units SUBCUTANEOUS q 8 Hphenol 1 Candor (CHLORASEPTIC) 1 Candor MUCOUS MEMBRANE (TOPICAL MOUTH ANDTHROAT) q 2 [...] today's visit:Most recent labs and imaging results.Impression/Recommend atAllenDary Jackson is a 62 year old male [...] for assistance with strengthening andnutritional support?Linda Avalos CNPCantua Creek Gastroenterology?Thank you for allowing us to participate in the care of this patient.Please call with questions or concerns.SIGNATURE: Linda Avalos CNP PATIENT NAME: Rocio VizcarraTE: August 21, 2017 : 9:34 AM PAGER: [phone] Normal [facility] Magnesiumon 08-21-2017 Magnesium 2.2 mg/dL Normal 1.7-2.6 [facility] Comment on above: Performed By: #### P T, PTT, AMYL, CMP, LIPA, PHOS ####[facility] [place], [place] [phone]#### TRANSF ####[facility] [address] [place], [place] [phone] PROGRESSon 08-21-2017 PROGRESS HNO ID: [id number] thor: Khadar Guo: General SurgeryAuthor Type: PhysicianType: Progress NotesFiled: 08/21/2017 6:50 PMNote Text:PROGRESS NOTES - SURGICAL SERVICESPATIENT NAME: Rocio JacksonMRN: [id number] HISTORY OF PRESENT ILLNESS:Got PTHC on 08/19. [...] Continue inpatient admissionKAEL HERNANDEZ MD (Res)General SurgeryPager: [phone]*On weekends or nights (after 1800) please contact the surgery on callpager.*Att: As above. Hopeful for home on full liquids/protein shakestomorrow.Consider dc of ROMINA drain before DC.PtC must be kept to gravity since it could not be advanced to duodenum.Outpt f/u with Dr Jolley as soon as available.Khadar Duffy MDFebruary 2017 6:50 PM Normal [facility] Phosphoruson 08-21-2017 Phosphate 2.9 mg/dL Normal 2.5-4.5 [facility] Comment on above: Performed By: #### P T, PTT, AMYL, CMP, LIPA, PHOS ####[facility] [place], [place] [phone]#### TRANSF ####[facility] [id number] [place], [place] [phone] THERAPY NTon 08-21-2017 THERAPY NT HNO ID: [id number] thor: Sujata (Pt) PapcunService: Physical TherapyAuthor Type: Physical TherapistType: Therapy (PT/OT/Speech/Resp)Filed: 08/21/2017 2:10 PMNote Text:Physical Therapy EvaluationSERVICE DATE: 08/21/2017SERVICE TIME: 1255 to 1320ROOM: [place] [address] ( OPERATING ROOM)Recommended Discharge Disposition: Home PTAnticipated [...] drain. Patient's pertinent PMHx includesDM, glaucoma; HTN; OR; s/p OR; 2 stents. Patient's impairments as relatedto Physical [...] Reduced mobility-other;Muscle Weakness (generalized)Interventions Provided: Evaluation;Gait Training (52957)$ Evaluation-Low (57227) Billed Units: 1 unitGait Training (79703) Treatment Minutes: 101 unitSkilled Intervention(s): Instruction in [...] RE: Sujata Ohara PT PATIENT NAME: Rocio RenettaDATE: August 21, 2017 : 2:05 PM PAGER/CONTACT #: [phone] [facility] THERAPY NT HNO ID: [id number] thor: Mandi (Ot) GarnekService: Occupational TherapyAuthor Type: Occupational TherapistType: Therapy (PT/OT/Speech/Resp)Filed: 08/21/2017 11:25 AMNote Text:Occupational Therapy EvaluationSERVICE DATE: 08/21/2017SERVICE TIME: 0845 to 0910ROOM: [place] [address] ( OPERATING ROOM)Admit with Emesis X 1 Month, Abdominal Pain, Partial Duodenal Obstructionand Obstructive Jaundice, Abdominal Abscess, S/P CT Guided AbscessDrainage 08/15/17, S/P Recent Cholecystectomy 08/11/17, and ERCP 08/13/17Recommended Discharge Disposition: Home OTAnticipated Discharge Needs: Physical Assist at Home;EquipmentPhysical Assist at Home for: Cleaning;Laundry;Meals;SelfC are;Shopping;TransportationR ecommended Discharge Equipment: Elastic Shoe Laces;Grab Bars-Shower;HandHeld Shower;Long Handled Shoe Horn;Long Handled Sponge;WheeledWalker;Systems Design Engineer ;Sock Aide;Shower ChairOT Recommendations to Nursing: OOB [...] History Relevantto Therapy Includes: DM, Glaucoma, HTN, OR. For Complete Past MedicalHistory Please Refer to [facility]. Pt presents with decreased ability tocomplete ADL's requiring assist at this time. Pt also presents withdecreased activity tolerance, functional mobility, strength, and safety.Pt requires skilled OT services to address progression of ADL's,functional mobility, strength, increase activity tolerance, and safety.Pt has adequate support and social structure for reasonably safe dischargehome at current level. 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 Pt has a small [...] dailyliving (ADL);Muscle Weakness (generalized)Interventions Provided: Evaluation;Therapeutic Activity (60693)$ Evaluation-Low (82882) Billed Units: 1 unitTherapeutic Activity (86558) Treatment Minutes: 101 unitSkilled Intervention(s): Instructed patient [...] 25FUNCTIONAL G CODE:OT 6 Clicks Score: 18 (08/21/17 0824)Self Care Current Status (G8987): CK (08/21/17844)Self Care [...] 0Tub/Shower Type: Walk-in ShowerLaundry: Dtr completesEquipment Owned: CanePpoint hoper Functional Level: Within Functional Limits;RequiredAssistance;Ot her: See Comment (Per Pt, Independent with ADL's, familycompletes IADL's)Assistance Required With: Cleaning;Laundry;Meals;Shopp ing;Other: SeeComment (Pt's family complete IADL's)Prior Functional Level Comments: Per Pt, he was independent with ADL's,and family completes all IADL's. Pt ambulated independently prior toadmit, and works FT in a [employer].OBJECTIVE:Responsiven ess: Alert;AwakeFollows Commands: 3-step CommandsVision Deficits: Wears [...] August 21, 2017 : 11:19 AM PAGER: [phone] [facility] CASE MANAGEMon 08-20-2017 CASE MANAGEM HNO ID: [id number] thor: Alexandrea (Rn) Tohm, RNService: Care ManagementAuthor Type: Registered NurseType: Care Mgt Progress NoteFiled: 08/20/2017 1:48 PMNote Text:MULTIDISCIPLINARY ROUNDSSERVICE DATE: 08/20/2017 ADMISSION DATE: 08/13/2017SERVICE TIME: 1:46 PM ANTICIPATED D/C DATE: ThursdayProblem List:ACTIVE PROBLEM LISTDuodenal ObstructionSevere Protein-Calorie Malnutrition (Hcc)Attendees Present at Rounds:Pit Worker Power Shovel: Chantelleurse Pattern Cutter/Slab Polisher Nurse Pattern Cutter: Roderick Nurse: Laura Discussed on Rounds:Discharge NeedsPlan of CareAnticipated Discharge Disposition:[facility] FacilityPer discussion with Dr Duffy pt [...] August 20, 2017 : 1:46 PM CSN: [id number] [facility] CBCon 08-20-2017 Erythrocyte distribution width Auto Ratio (RBC) 15.8 % High 11.5-15.0 [facility] Comment on above: Performed By: #### C BC, CMP, MG1, PHOS ####[place] [address] Erythrocytes (RBC) 2.93 10*6/uL Low 4.20-6.00 [facility] Comment on above: Performed By: #### C BC, CMP, MG1, PHOS ####[place] [address] Hematocrit (HCT) 26.0 % Low 39.0-51.0 [facility] Comment on above: Performed By: #### C BC, CMP, MG1, PHOS ####[place] [address] Hemoglobin mass conc (Bld) 8.3 g/dL Low 13.0-17.0 [facility] Comment on above: Performed By: #### C BC, CMP, MG1, PHOS ####[place] [address] MCH 28.3 pG Normal 26.0-34.0 [facility] Comment on above: Performed By: #### C BC, CMP, MG1, PHOS ####[place] [address] MCHC mass conc (RBC) 31.9 g/dL Normal 30.5-36.0 [facility] Comment on above: Performed By: #### C BC, CMP, MG1, PHOS ####[place] [address] MCV 88.7 fL Normal 80.0-100.0 [facility] Comment on above: Performed By: #### C BC, CMP, MG1, PHOS ####[place] [address] Platelet mean volume (PMV) 9.6 fL Normal 9.0-12.7 [facility] Comment on above: Performed By: #### C BC, CMP, MG1, PHOS ####[place] [address] Platelets 331 10*3/uL Normal 150-400 [facility] Comment on above: Performed By: #### C BC, CMP, MG1, PHOS ####[place] [phone] WBC (Leukocytes) 5.78 10*3/uL Normal 3.70-11.00 [facility] Comment on above: Performed By: #### C BC, CMP, MG1, PHOS ####[place] [address] Comp Metabolic Panelon 08-20 Alanine aminotransferase (ALT) 55 U/L High 5-50 [facility] Comment on above: Performed By: #### C BC, CMP, MG1, PHOS ####[place] [address] Albumin 2.1 g/dL Low 3.5-5.0 [facility] Comment on above: Result Comment: Revi ewed Performed By: #### C BC, CMP, MG1, PHOS ####[place] [address] Alkaline phosphatase (ALP) 241 U/L High 40-150 [facility] Comment on above: Performed By: #### C BC, CMP, MG1, PHOS ####[place] [phone] Anion gap 9 mmol/L Normal 9-18 [facility] Comment on above: Performed By: #### C BC, CMP, MG1, PHOS ####[place] [address] Aspartate aminotransferase (AST) 42 U/L High 7-40 [facility] Comment on above: Result Comment: Resu lts may be falsely increased due to interference by hemolysis. Suggest reorder as clinically indicated. Performed By: #### C BC, CMP, MG1, PHOS ####[place] [phone] Bilirubin (total) 0.7 mg/dL Normal 0.0-1.5 [facility] Comment on above: Performed By: #### C BC, CMP, MG1, PHOS ####[place] [phone] Calcium 7.6 mg/dL Low 8.5-10.5 [facility] Comment on above: Performed By: #### C BC, CMP, MG1, PHOS ####[place] [phone] Chloride 109 mmol/L Normal 98-110 [facility] Comment on above: Performed By: #### C BC, CMP, MG1, PHOS ####[place] [phone] CO2 23 mmol/L Normal 23-32 [facility] Comment on above: Performed By: #### C BC, CMP, MG1, PHOS ####[place] [phone] Creatinine 0.68 mg/dL Low 0.70-1.40 [facility] Comment on above: Performed By: #### C BC, CMP, MG1, PHOS ####[place] [phone] eGFR (non-black) mL/min/{1.73_m2} Normal >60 [facility] Comment on above: Performed By: #### C BC, CMP, MG1, PHOS ####[place] [phone] Glucose mass conc 117 mg/dL High 65-100 [facility] Comment on above: Performed By: #### C BC, CMP, MG1, PHOS ####[place] [phone] Potassium molar conc 3.9 mmol/L Normal 3.5-5.0 [facility] Comment on above: Performed By: #### C BC, CMP, MG1, PHOS ####[place] [phone] Protein 5.3 g/dL Low 6.0-8.4 [facility] Comment on above: Performed By: #### C BC, CMP, MG1, PHOS ####[place] [id number] [place] [phone] Sodium 141 mmol/L Normal 135-146 [facility] Comment on above: Performed By: #### C BC, CMP, MG1, PHOS ####[place] [phone] Urea nitrogen 6 mg/dL Low 10-25 [facility] Comment on above: Performed By: #### C BC, CMP, MG1, PHOS ####[place] [phone] Magnesiumon 08-20-2017 Magnesium 2.2 mg/dL Normal 1.7-2.6 [facility] Comment on above: Performed By: #### C BC, CMP, MG1, PHOS ####[address] NURSING PROGon 08-20-2017 NURSING PROG HNO ID: [id number] thor: Maryanne (Rn) Luis Miguel, RNService: (none)Author Type: Registered NurseType: Nursing Progress NoteFiled: 08/20/2017 9:53 AMNote Text: Nursing Progress NotePatient Name: Rocio HayesMarisa: [id number] Location: [place] [address] ____0945 - attempted to flush right double lumen PICC, both lumens are patentwith positive blood return, restarted ordered IV fluids. Patienttolerating wellThis note was completed by: Maryanne Bolanos RN [facility] PROGRESSon 08-20-2017 PROGRESS HNO ID: [id number] thor: Khadar Guo: General SurgeryAuthor Type: PhysicianType: Progress NotesFiled: 08/20/2017 12:27 PMNote Text:PROGRESS NOTES - SURGICAL SERVICESPATIENT NAME: Rocio Boudreaux: [id number] HISTORY OF PRESENT ILLNESS:Got PTHC yesterday. No [...] am.Khadar Duffy MDFebruary 2017 12:27 PM Normal [facility] Phosphoruson 08-20-2017 Phosphate 2.9 mg/dL Normal 2.5-4.5 [facility] Comment on above: Performed By: #### C BC, CMP, MG1, PHOS ####[facility] [place], [place] [phone] ANES Ila 08-19-2017 ANES POST HNO ID: [id number] thor: Craig Richardsonice: AnesthesiologyAuthor Type: AnesthesiologistType: Anesthesia [...] 19, 2017 : 4:20 PM PAGER/CONTACT #: [facility] ANES PREOPon 08-19-2017 ANES PREOP HNO ID: [id number] thor: Brian BarriossService: AnesthesiologyAuthor Type: AnesthesiologistType: Anesthesia PreOpFiled: 08/19/2017 6:27 PMNote Text:REGIONAL ANESTHESIOLOGY DAY OF SURGERY NOTEPATIENT NAME: Rocio JacksonMRN: [id number]: 1955Procedure(s) (LRB):ANESTHESIA FOR NON-INVASIVE IMAGING OR RADIATION THERAPY (N/A)Surgeon(s):Radiology FairviewBenjamin TritleEstimated body mass index is 29.19 kg/(m2) [...] Date- ANGIOPLASTY HX 05/15/2011 2 stents s/p OR;[facility]- CHOLECYSTECTOMY 08/11/2017 [facility]- PICC LINE INSERT/CONSULT 08/16/2017No family history on file.Social History:Social HistorySubstance Use Topics- Smoking status: Former Smoker Types: Cigarettes Quit date: 2010- Smokeless tobacco: Never Used- Alcohol use 1.5 oz/week 1 Cans of Beer (12oz) per week Comment: occasional beerNo current facility-administered medications on file prior to encounter.No current outpatient prescriptions on file prior to encounter.Inpatient medications reviewed in [facility].I have interviewed and examined the patient. I have reviewed the medicalrecord and/or the pre-anesthesia evaluation, pertinent labs, and testresults.Significant changes in the patient's condition since the History andPhysical, not otherwise documented in primary service progress notes: NoThis contains updated information obtained within 48 hours ofSurgery/Procedure.SIGNATUR E: Brian Orona MD PATIENT NAME: Rocio VizcarraTE: August 19, 2017 : 1220 PAGER/CONTACT #: [phone] (pager) [facility] BRIEF OP NOTon 08-19-2017 BRIEF OP NOT HNO ID: [id number] thor: Vanessa Petersone: RadiologyAuthor Type: PhysicianType: Brief Op NoteFiled: 08/19/2017 2:57 PMNote Text:BRIEF OPERATIVE / PROCEDURE NOTESurgery/Procedure Date: 08/19/17Incision/Procedure Start Time:Incision Close/Procedure End Time:Surgeon(s)/Proceduralis t(s) and Slab Polisher(s):Dusty Garcia - PrimaryProcedure(s): R PTHC and Int/Ext biliary drainAnesthesia: GeneralFindings: Mildly dilated IH ducts. NO filling defects. Severe D2-3strictureEstimated Blood Loss: MinimalSpecimens: NoneComplications: NonePre-Op/Pre-Procedure Diagnosis: Duodenal massPost-Op/Post-Procedure Diagnosis: SameSIGNATURE: Vanessa Garcia MD PATIENT NAME: Rocio TorresdonnyDATE: August 19, 2017 : 2:56 PM PAGER/CONTACT #: Normal [facility] CBCon 08-19-2017 Erythrocyte distribution width Auto Ratio (RBC) 15.4 % High 11.5-15.0 [facility] Comment on above: Performed By: #### C BC, CMP, MG1, PHOS ####[place] [address] Erythrocytes (RBC) 3.17 10*6/uL Low 4.20-6.00 [facility] Comment on above: Performed By: #### C BC, CMP, MG1, PHOS ####[place] [address] Hematocrit (HCT) 27.7 % Low 39.0-51.0 [facility] Comment on above: Performed By: #### C BC, CMP, MG1, PHOS ####[place] [address] Hemoglobin mass conc (Bld) 8.8 g/dL Low 13.0-17.0 [facility] Comment on above: Performed By: #### C BC, CMP, MG1, PHOS ####[address] MCH 27.8 pG Normal 26.0-34.0 [facility] Comment on above: Performed By: #### C BC, CMP, MG1, PHOS ####[address] MCHC mass conc (RBC) 31.8 g/dL Normal 30.5-36.0 [facility] Comment on above: Performed By: #### C BC, CMP, MG1, PHOS ####[address] MCV 87.4 fL Normal 80.0-100.0 [facility] Comment on above: Performed By: #### C BC, CMP, MG1, PHOS ####[address] Platelet mean volume (PMV) 9.7 fL Normal 9.0-12.7 [facility] Comment on above: Performed By: #### C BC, CMP, MG1, PHOS ####[place] [phone] Platelets 344 10*3/uL Normal 150-400 [facility] Comment on above: Performed By: #### C BC, CMP, MG1, PHOS ####[place] [phone] WBC (Leukocytes) 6.57 10*3/uL Normal 3.70-11.00 [facility] Comment on above: Performed By: #### C BC, CMP, MG1, PHOS ####[place] [phone] Comp Metabolic Panelon 08-19 Alanine aminotransferase (ALT) 53 U/L High 5-50 [facility] Comment on above: Performed By: #### C BC, CMP, MG1, PHOS ####[place] [phone] Albumin 2.5 g/dL Low 3.5-5.0 [facility] Comment on above: Performed By: #### C BC, CMP, MG1, PHOS ####[place] [phone] Alkaline phosphatase (ALP) 249 U/L High 40-150 [facility] Comment on above: Performed By: #### C BC, CMP, MG1, PHOS ####[place] [phone] Anion gap 11 mmol/L Normal 9-18 [facility] Comment on above: Performed By: #### C BC, CMP, MG1, PHOS ####[place] [phone] Aspartate aminotransferase (AST) 27 U/L Normal 7-40 [facility] Comment on above: Performed By: #### C BC, CMP, MG1, PHOS ####[place] [address] Bilirubin (total) 0.9 mg/dL Normal 0.0-1.5 [facility] Comment on above: Performed By: #### C BC, CMP, MG1, PHOS ####[place] [phone] Calcium 7.6 mg/dL Low 8.5-10.5 [facility] Comment on above: Performed By: #### C BC, CMP, MG1, PHOS ####[place] [phone] Chloride 108 mmol/L Normal 98-110 [facility] Comment on above: Performed By: #### C BC, CMP, MG1, PHOS ####[place] [phone] CO2 23 mmol/L Normal 23-32 [facility] Comment on above: Performed By: #### C BC, CMP, MG1, PHOS ####[place] [phone] Creatinine 0.58 mg/dL Low 0.70-1.40 [facility] Comment on above: Performed By: #### C BC, CMP, MG1, PHOS ####[place] [phone] eGFR (non-black) mL/min/{1.73_m2} Normal >60 [facility] Comment on above: Performed By: #### C BC, CMP, MG1, PHOS ####[place] [phone] Glucose mass conc 144 mg/dL High 65-100 [facility] Comment on above: Performed By: #### C BC, CMP, MG1, PHOS ####[place] [address] Potassium molar conc 3.4 mmol/L Low 3.5-5.0 [facility] Comment on above: Performed By: #### C BC, CMP, MG1, PHOS ####[address] [phone] Protein 5.6 g/dL Low 6.0-8.4 [facility] Comment on above: Performed By: #### C BC, CMP, MG1, PHOS ####[place] [id number] [place], [place] [phone] Sodium 142 mmol/L Normal 135-146 [facility] Comment on above: Performed By: #### C BC, CMP, MG1, PHOS ####[address] [phone] Urea nitrogen 7 mg/dL Low 10-25 [facility] Comment on above: Performed By: #### C BC, CMP, MG1, PHOS ####[address] [phone] CATH BILI DRAIN INT -EXTon [...] Air Kerma: 1529.0 mGyDose Area Product (DAP): 542791.0 mGy*na7Jyzlhg Time: 46:36 min:secRadiation dose exceed 5 Gy: [...] an Alvarez Set dilator. Using a 4 [place] Kumpe catheter in conjunction with a glide wire, access was obtained into the small bowel. 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.THE PATIENT MAY RETURN IN 8 WEEKS FOR ROUTINE CATHETER CHANGE IF LONG-TERM PERCUTANEOUS ACCESS IS REQUIRED.Global Marketing Specialist: NII Transcribe Date/Time: Aug 19 2017 3:26PDictated by : VANESSA GARCIA MDThis examination was interpreted and the report reviewed and electronically signed by: VANESSA GARCIA MD on Aug 21 2017 3:05PM EST Normal [facility] Magnesiumon 08-19-2017 Magnesium 2.2 mg/dL Normal 1.7-2.6 [facility] Comment on above: Performed By: #### C BC, CMP, MG1, PHOS ####[facility] [place], [place] [phone] NURSING PROGon 08-19-2017 NURSING PROG HNO ID: [id number] thor: Shavonne (Rn) Lazbuddie, RNService: NursingAuthor Type: Registered NurseType: Nursing Progress NoteFiled: 08/19/2017 5:27 PMNote Text: Nursing Progress NotePatient Name: Rocio JacksonPETRONA: [id number] Location: [address]/[id number] ____Pt returned from PACU in stable condition. Right lateral lower quadrantdrain patent, draining brown, bilious fluid. A+Ox3, speech clear.Medicated for c/o generalized pain. Glucose 112. NPO order continued,green surgical team paged for updated orders.This note was completed by: Shavonne Mays RN [facility] NURSING PROG HNO ID: [id number] Author: Paty (Rn) FRANSICO Cardoza Service: Nursing Author Type: Registered Nurse Type: Nursing Progress Note Filed: 08/19/2017 3:26 PM Note Text: Biliary tube that is the latest tube draining baldwin and rust colored.} [facility] NURSING PROG HNO ID: [id number] thor: Latanya KenRn) MOUSTAPHA Larsenervice: RadiologyAuthor Type: Registered NurseType: Nursing Progress NoteFiled: 08/19/2017 11:47 AMNote Text:PATIENT EDUCATION TOPIC: PROCEDURE / SURGERY: Procedure/Surgery: PTHCPATIENT NAME: Rocio HayesMarisa: [id number] LOCATION: [place] [address]/[id number] S TO LEARNCOGNITIVE ABILITY: Alert and orientedMOTIVATION TO LEARN: EagerInterestedFAMILY SUPPORT: Unable to assess - Family not presentINSTRUCTION PROVIDED TO: PatientPATIENT LEARNS BEST BY: Individual InstructionWritten Instruction - Hand-outsVerbal InstructionFACTORS AFFECTING LEARNING: NonePHYSICAL LIMITATIONS AFFECTING LEARNING: NoneLEARNING RESPONSEDIAGNOSIS: ADULT: Duodenal massPATIENT/FAMILY RESPONSE: Verbalizes understanding of: CUBF-ILLOFGPKMOXTRTXQTPRAE-P orrect actions to take to reduce post procedurecomplicationsPRE-IN OCEDURE INSTRUCTIONS-Correct action to take to follow pre-procedureinstructionsMET HOD OF INSTRUCTION: Individual instructionWritten instruction - handoutsVerbal instructionFOLLOW-UP PLAN: Follow-up with Primary CareINSTRUCTIONAL AIDS USED: NASUPPLEMENTAL MATERIAL PROVIDED TO PATIENT: NoneREFERRAL (RECOMMENDATION): NoneElectronically Signed By: Latanya Laresn RN [facility] NURSING PROG HNO ID: [id number] thor: Jennifer Arreola) MOUSTAPHA Websterervice: (none)Author Type: Registered NurseType: Nursing Progress NoteFiled: 08/19/2017 3:24 AMNote Text: Nursing Progress NotePatient Name: Rocio JacksonMRN: [id number] Location: [place] [address]/[id number] ____ Pt with mild abd pain of 3 or less tonight. Tylenol controlling. Ptaware if needed may have pain pills. Accordian drain flushed at 2100 perorder for positive return of sterile NS and brown liquid.This note was completed by: Jennifer Webster RN [facility] NUTRITIONon 08-19-2017 NUTRITION HNO ID: [id number] thor: Alise Segura) BarsaService: Nutrition TherapyAuthor Type: [...] 87 kgResting Metabolic Rate: 1661Estimated kilocalorie needs: 8236-7517 kilocalories determined by 25-28kcal/kgEstimated protein needs:113 - [...] kg (192 lb) SpO2 98% BMI 29.19 kg/a2Hacexn Labs GLUC 144*BUN 7*CREAT 0.58*NA 142K 3.4*CHLOR [...] 5,000 Units SUBCUTANEOUS q 8 Hphenol 1 Candor (CHLORASEPTIC) 1 Candor MUCOUS MEMBRANE (TOPICAL MOUTH ANDTHROAT) q 2 [...] assistance and weekends please page theGroup Pager [phone] [facility] PROGRESSon 08-19-2017 PROGRESS HNO ID: [id number] thor: Khadar Guo: General SurgeryAuthor Type: PhysicianType: [...] enteral feeds.Khadar Duffy MDFebruary 2017 9:56 PM Normal [facility] Phosphoruson 08-19-2017 Phosphate 1.9 mg/dL Low 2.5-4.5 [facility] Comment on above: Performed By: #### C BC, CMP, MG1, PHOS ####[facility] [place], [place] [phone] CASE MANAGEMon 08-18-2017 CASE MANAGEM HNO ID: [id number] thor: Alexandrea (Rn) Thom, MOUSTAPHAervice: Care ManagementAuthor Type: Registered NurseType: Care Mgt Progress NoteFiled: 08/18/2017 2:30 PMNote Text:MULTIDISCIPLINARY ROUNDSSERVICE DATE: 08/18/2017 ADMISSION DATE: 08/13/2017SERVICE TIME: 2:27 PM ANTICIPATED D/C DATE: 1-3 daysProblem List:ACTIVE PROBLEM LISTDuodenal ObstructionSevere Protein-Calorie Malnutrition (Hcc)Attendees Present at Rounds:Pit Worker Power Shovel: Roderick Nurse: Laura Discussed on Rounds:Discharge NeedsPlan [...] BY: Alexandrea Tomas RN PATIENT NAME: Rocio Sibley: August 18, 2017 : 2:27 PM CSN: [id number] Normal [facility] CBCon 08-18-2017 Erythrocyte distribution width Auto Ratio (RBC) 15.7 % High 11.5-15.0 [facility] Comment on above: Performed By: #### P T, PTT, AMYL, CMP, LIPA, PHOS ####[address] [phone]#### TRANSF ####[place] [id number] [place], [place] [phone] Erythrocytes (RBC) 3.08 10*6/uL Low 4.20-6.00 [facility] Comment on above: Performed By: #### P T, PTT, AMYL, CMP, LIPA, PHOS ####[address] [phone]#### TRANSF ####[address] [phone] Hematocrit (HCT) 26.6 % Low 39.0-51.0 [facility] Comment on above: Performed By: #### P T, PTT, AMYL, CMP, LIPA, PHOS ####[place] [address]#### TRANSF ####[place] [phone] Hemoglobin mass conc (Bld) 8.6 g/dL Low 13.0-17.0 [facility] Comment on above: Performed By: #### P T, PTT, AMYL, CMP, LIPA, PHOS ####[place] [address]#### TRANSF ####[place] [address] MCH 27.9 pG Normal 26.0-34.0 [facility] Comment on above: Performed By: #### P T, PTT, AMYL, CMP, LIPA, PHOS ####[place] [address]#### TRANSF ####[place] [address] MCHC mass conc (RBC) 32.3 g/dL Normal 30.5-36.0 [facility] Comment on above: Performed By: #### P T, PTT, AMYL, CMP, LIPA, PHOS ####[place] [address]#### TRANSF ####[place] [address] MCV 86.4 fL Normal 80.0-100.0 [facility] Comment on above: Performed By: #### P T, PTT, AMYL, CMP, LIPA, PHOS ####[place] [address]#### TRANSF ####[place] [phone] Platelet mean volume (PMV) 10.2 fL Normal 9.0-12.7 [facility] Comment on above: Performed By: #### P T, PTT, AMYL, CMP, LIPA, PHOS ####[place] [place] [address]#### TRANSF ####[phone] Platelets 310 10*3/uL Normal 150-400 [facility] Comment on above: Performed By: #### P T, PTT, AMYL, CMP, LIPA, PHOS ####[place] [phone]#### TRANSF ####[place] [phone] WBC (Leukocytes) 4.87 10*3/uL Normal 3.70-11.00 [facility] Comment on above: Performed By: #### P T, PTT, AMYL, CMP, LIPA, PHOS ####[place] [phone]#### TRANSF ####[place] [phone] CONSULT PROGon 08-18-2017 CONSULT PROG HNO ID: [id number] thor: Linda ([facility]) MacangaService: GastroenterologyAuthor Type: Nurse PractitionerType: Consult Progress NoteFiled: 08/18/2017 1:23 PMNote Text:CONSULT PROGRESS NOTESERVICE DATE: 08/18/2017SERVICE TIME: 1:20 PMCONSULTING SERVICE: GISubjectiveINTERVAL HPI: No acute events overnight. 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 CenterDary Jackson is a 62 year [...] tube placement for feeding-continue to followLinda Avalos CNPCantua Creek Gastroenterologyank you for allowing us to participate in the care of this patient.Please call with questions or concerns.SIGNATURE: Linda Avalos CNP PATIENT NAME: Rocio BrianschDATE: August 18, 2017 : 1:20 PM PAGER: [phone] Normal [facility] Comp Metabolic Panelon 08-18 Alanine aminotransferase (ALT) 66 U/L High 5-50 [facility] Comment on above: Performed By: #### P T, PTT, AMYL, CMP, LIPA, PHOS ####[place] [address]#### TRANSF ####[place] [phone] Albumin 2.3 g/dL Low 3.5-5.0 [facility] Comment on above: Performed By: #### P T, PTT, AMYL, CMP, LIPA, PHOS ####[place] [address]#### TRANSF ####[place] [address]854[address] Alkaline phosphatase (ALP) 261 U/L High 40-150 [facility] Comment on above: Performed By: #### P T, PTT, AMYL, CMP, LIPA, PHOS ####[address]#### TRANSF ####[place] [address]854-5[address] Anion gap 8 mmol/L Low 9-18 [facility] Comment on above: Performed By: #### P T, PTT, AMYL, CMP, LIPA, PHOS ####[place] [address]#### TRANSF ####[place] 680854-5755 Aspartate aminotransferase (AST) 32 U/L Normal 7-40 [facility] Comment on above: Performed By: #### P T, PTT, AMYL, CMP, LIPA, PHOS ####[place] [address]#### TRANSF ####[place] [address]854-5755 Bilirubin (total) 0.9 mg/dL Normal 0.0-1.5 [facility] Comment on above: Performed By: #### P T, PTT, AMYL, CMP, LIPA, PHOS ####[place] [address]#### TRANSF ####[place] [address]854[address] Calcium 7.2 mg/dL Low 8.5-10.5 [facility] Comment on above: Result Comment: Revi ewed Performed By: #### P T, PTT, AMYL, CMP, LIPA, PHOS ####[place] [address]#### TRANSF ####[place] [address]854-5[address] Chloride 112 mmol/L High 98-110 [facility] Comment on above: Performed By: #### P T, PTT, AMYL, CMP, LIPA, PHOS ####[place] [address]#### TRANSF ####[place] 680854[address]5755 CO2 28 mmol/L Normal 23-32 [facility] Comment on above: Performed By: #### P T, PTT, AMYL, CMP, LIPA, PHOS ####[place] [phone]#### TRANSF ####[phone] Creatinine 0.71 mg/dL Normal 0.70-1.40 [facility] Comment on above: Performed By: #### P T, PTT, AMYL, CMP, LIPA, PHOS ####[place] [phone]#### TRANSF ####[place] [address]854-5[address] eGFR (non-black) mL/min/{1.73_m2} Normal >60 [facility] Comment on above: Performed By: #### P T, PTT, AMYL, CMP, LIPA, PHOS ####[address]#### TRANSF ####[place] [address]854[address] Glucose mass conc 160 mg/dL High 65-100 [facility] Comment on above: Performed By: #### P T, PTT, AMYL, CMP, LIPA, PHOS ####[address]#### TRANSF ####[place] [phone] Potassium molar conc 3.9 mmol/L Normal 3.5-5.0 [facility] Comment on above: Result Comment: Revi ewed Performed By: #### P T, PTT, AMYL, CMP, LIPA, PHOS ####[address]#### TRANSF ####[place] [address] Protein 5.5 g/dL Low 6.0-8.4 [facility] Comment on above: Performed By: #### P T, PTT, AMYL, CMP, LIPA, PHOS ####[place] [address]#### TRANSF ####[place] [address]854[address] Sodium 148 mmol/L High 135-146 [facility] Comment on above: Performed By: #### P T, PTT, AMYL, CMP, LIPA, PHOS ####[place] [address]#### TRANSF ####[place] [address]854-5755 Urea nitrogen 13 mg/dL Normal 10-25 [facility] Comment on above: Performed By: #### P T, PTT, AMYL, CMP, LIPA, PHOS ####[place] [address]#### TRANSF ####[place] [phone] Magnesiumon 08-18-2017 Magnesium 2.1 mg/dL Normal 1.7-2.6 [facility] Comment on above: Performed By: #### P T, PTT, AMYL, CMP, LIPA, PHOS ####[place] [address]#### TRANSF ####[place] [phone] NUTRITIONon 08-18-2017 NUTRITION HNO ID: [id number] thor: Alise Segura) BarsaService: Nutrition TherapyAuthor Type: Registered DietitianType: NutritionFiled: 08/18/2017 1:39 PMNote Text:NUTRITION THERAPY PROGRESS NOTESERVICE DATE: 08/18/2017SERVICE TIME: 1:24 PMRECOMMENDED DIAGNOSIS: SEVERE PROTEIN-CALORIE MALNUTRITION per RegisteredDietitian on 08/14NUTRITION CARE PLANIntervention:Diet NPOAdvance to clearsMonitor and Evaluation:Goal: Meet >75% of estimated needsMonitor fluid/electrolyte balanceMonitor labs, I/Os, vital signs, weightDischarge Nutrition Recommendations:To be wafnmtwxry16 year old male with a history notable [...] acting) (HumaLOG) SUBCUTANEOUS w MEALSAND HSphenol 1 Candor (CHLORASEPTIC) 1 Candor MUCOUS MEMBRANE (TOPICAL MOUTH ANDTHROAT) q 2 [...] assistance and weekends please page theGroup Pager -[phone] [facility] PROGRESSon 08-18-2017 PROGRESS HNO ID: [id number] thor: Khadar Guo: General SurgeryAuthor Type: PhysicianType: Progress NotesFiled: 08/18/2017 6:11 PMNote Text:PROGRESS NOTES - SURGICAL SERVICESPATIENT NAME: Rocio JacksonMRN: [id number] HISTORY OF PRESENT ILLNESS:No acute events overnight. [...] at 08/18/17 0546 Gross per 24 hourIntake 195 mlOutput 2540 mlNet -587 mlSURGERY/PROCEDURE:Procedur e(s) and [...] surgical care: EVERETT RODRIGUEZ MD (Res)General SurgeryPager: [phone]*On weekends or nights (after 1800) please contact [...] understand.Khadar Duffy MDFebruary 2017 6:11 PM Normal [facility] Phosphoruson 08-18-2017 Phosphate 2.2 mg/dL Low 2.5-4.5 [facility] Comment on above: Performed By: #### P T, PTT, AMYL, CMP, LIPA, PHOS ####[facility] [place] [phone]#### TRANSF ####[facility] [address] [place], [place] [phone] ANES Ila 08-17-2017 ANES POST HNO ID: [id number] thor: Reba Cuetoe: AnesthesiologyAuthor Type: AnesthesiologistType: Anesthesia PostOpFiled: 08/17/2017 5:41 PMNote Text:POST ANESTHESIA EVALUATION NOTESERVICE DATE: 08/17/2017SERVICE TIME: 1741DOB: 1955Vitals: 08/17/1807Temp: 37 ?C (98.6 ?F) 37.1 ?C (98.8 ?F) 37 ?C (98.6 ?F) 36.9 ?C (98.4 ?F) 08/17/1813956029NB: 141/90 128/84 124/86 113/79 08/17/1813Pulse: 109 101 [...] 17, 2017 : 5:41 PM PAGER/CONTACT #: [facility] ANES PREOPon 08-17-2017 ANES PREOP HNO ID: [id number] thor: Reba ValleService: AnesthesiologyAuthor Type: AnesthesiologistType: Anesthesia PreOpFiled: 08/17/2017 3:21 PMNote Text:REGIONAL ANESTHESIOLOGY DAY OF SURGERY NOTEPATIENT NAME: Rocio JacksonMRN: [id number]: 1955Procedure(s) (LRB):ERCP (N/A)Surgeon(s):Srinath NavaEstimated body mass index [...] 08/17/1813BP: 128/77 141/90 128/84Pulse: 100 109 101Resp: Temp: [...] Date- ANGIOPLASTY HX 05/15/2011 2 stents s/p OR;[facility]- CHOLECYSTECTOMY 08/11/2017 [facility]- PICC LINE INSERT/CONSULT 08/16/2017No family history [...] 2017 : 3:20 PM PAGER/CONTACT #: Normal [facility] BRIEF OP NOTon 08-17-2017 BRIEF OP NOT HNO ID: [id number] thor: Srinath Padillae: GastroenterologyAuthor Type: PhysicianType: Brief Op NoteFiled: 08/17/2017 5:07 PMNote Text:Please see procedure report under procedure tabIMP:Duodenal mass, malignant with D2 stenosis involving area of papillaS/P dilation to 15mm balloonRecs:Clear liquid diet, may consider EGD assisted duodenal tube placement forfeedingUnable to cannulate due to sharp angulation, can have PTC with exchange tointernal endoscopically Normal [facility] CASE MGT INIT ASSESon 2017 CASE MGT INIT [facility] HNO ID: [id number] thor: Alexandrea (Rn) MOUSTAPHA Tomaservice: Care ManagementAuthor Type: Registered NurseType: Care Mgt Initial AssessmentFiled: 08/17/2017 2:14 PMNote Text:CARE MANAGEMENT: ASSESSMENT AND DISCHARGE PLANSERVICE DATE: 08/17/2017SERVICE TIME: 2:11 PMPRIMARY CARE PHYSICIAN:No primary care provider on file.Phone: NoneADMISSION STATUS: InpatientPOTENTIAL DISCHARGE PLANSTo Be DeterminedPatient/Representa tive Stated Goals: I am having a test this afternoon.Needs Prior to Discharge: To Be DeterminedHealth Insurance: City HospitalLiving Arrangement: HomeLives With: 2 adult childrenFinancial Resources: N/APrimary Contact:Extended Emergency Contact InformationPrimary Emergency Contact: Corazon Mullerddress: [place], [place] [address]Teoe Igsdkuxg: SiblingSupportive: YesOther Important Patient Contacts: NoneCAREGIVER ASSESSMENT:Caregiver [...] days? NoHas the Patient Been in a Assisted Facility in the Past 30 days? NoFREEDOM [...] 17, 2017 : 2:07 PM PAGER/CONTACT #: [phone] Normal [facility] CBCon 08-17-2017 Erythrocyte distribution width Auto Ratio (RBC) 15.5 % High 11.5-15.0 [facility] Comment on above: Performed By: #### P T, PTT, AMYL, CMP, LIPA, PHOS ####[place] [address]#### TRANSF ####[place] [address] Erythrocytes (RBC) 3.18 10*6/uL Low 4.20-6.00 [facility] Comment on above: Performed By: #### P T, PTT, AMYL, CMP, LIPA, PHOS ####[place] [address]#### TRANSF ####[place] [address] Hematocrit (HCT) 27.4 % Low 39.0-51.0 [facility] Comment on above: Performed By: #### P T, PTT, AMYL, CMP, LIPA, PHOS ####[place] [address]#### TRANSF ####[place] [address] Hemoglobin mass conc (Bld) 9.1 g/dL Low 13.0-17.0 [facility] Comment on above: Performed By: #### P T, PTT, AMYL, CMP, LIPA, PHOS ####[place] [address]#### TRANSF ####[place] [address] MCH 28.6 pG Normal 26.0-34.0 [facility] Comment on above: Performed By: #### P T, PTT, AMYL, CMP, LIPA, PHOS ####[place] [address]#### TRANSF ####[place] [address] MCHC mass conc (RBC) 33.2 g/dL Normal 30.5-36.0 [facility] Comment on above: Performed By: #### P T, PTT, AMYL, CMP, LIPA, PHOS ####[place] [address]#### TRANSF ####[place] [address] MCV 86.2 fL Normal 80.0-100.0 [facility] Comment on above: Performed By: #### P T, PTT, AMYL, CMP, LIPA, PHOS ####[place] [address]#### TRANSF ####[place] [address] Platelet mean volume (PMV) 10.0 fL Normal 9.0-12.7 [facility] Comment on above: Performed By: #### P T, PTT, AMYL, CMP, LIPA, PHOS ####[place] [address]#### TRANSF ####[place] [address] Platelets 319 10*3/uL Normal 150-400 [facility] Comment on above: Performed By: #### P T, PTT, AMYL, CMP, LIPA, PHOS ####[place] [phone]#### TRANSF ####[facility] [address] [place], [place] [phone] WBC (Leukocytes) 7.02 10*3/uL Normal 3.70-11.00 [facility] Comment on above: Performed By: #### P T, PTT, AMYL, CMP, LIPA, PHOS ####[facility] [place], [place] [phone]#### TRANSF ####[facility] [address] [place], [place] [phone] CONSULT PROGon 08-17-2017 CONSULT PROG HNO ID: [id number] thor: Jessee Lottervice: Cardiovascular DiseaseAuthor Type: PhysicianType: Consult Progress NoteFiled: 08/18/2017 10:29 PMNote Text:PROGRESS NOTE CARDIOLOGY SERVICESERVICE DATE: August 17, 2017SERVICE TIME: 12:48 PMASSESSMENT/PLANActive Problems:Atrial fibrillation. Persistent AF, ventricular rates +/- 100Heparin infusion is off. Inr was elevated, received vitamin K prior toprocedure. Today 1.0.s/p ERCP yesterdayPlan:Continue metoprolol.Spoke to surgical TAKE DOWN SORTER Boubacar Espinoza. ->kimberley is for PTHC tomorrow.Will consider AC after procedure. ?Duodenal mass and obstructive jaundices/p perc drain placement.-s/p ERCP yesterday s/p dilatation. For stent placement tomorrow.As aboveContinue monitorThank you very much for allowing me to participate in this patient's care.Jessee Mayorga, [facility] ANTLERSUBJECTIVEINTERIM HISTORY: No chest pain or dyspnea. No [...] edema.PULSES: Peripheral pulses present.MEDICATIONS:Current Facility-Administered Medications:phenol 1 Candor (CHLORASEPTIC) 1 Candor MUCOUS MEMBRANE (TOPICAL MOUTH ANDTHROAT) q 2 [...] 2017 : 12:48 PM PAGER/CONTACT #: Normal [facility] Comp Metabolic Panelon 08-17 Alanine aminotransferase (ALT) 90 U/L High 5-50 [facility] Comment on above: Performed By: #### P T, PTT, AMYL, CMP, LIPA, PHOS ####[place] [phone]#### TRANSF ####[place] [phone] Albumin 2.5 g/dL Low 3.5-5.0 [facility] Comment on above: Performed By: #### P T, PTT, AMYL, CMP, LIPA, PHOS ####[place] [phone]#### TRANSF ####[place] [phone] Alkaline phosphatase (ALP) 304 U/L High 40-150 [facility] Comment on above: Performed By: #### P T, PTT, AMYL, CMP, LIPA, PHOS ####[place] [address]#### TRANSF ####[place] [address] Anion gap 12 mmol/L Normal 9-18 [facility] Comment on above: Performed By: #### P T, PTT, AMYL, CMP, LIPA, PHOS ####[place] [address]#### TRANSF ####[place] [address] Aspartate aminotransferase (AST) 36 U/L Normal 7-40 [facility] Comment on above: Performed By: #### P T, PTT, AMYL, CMP, LIPA, PHOS ####[place] [address]#### TRANSF ####[place] [address] Bilirubin (total) 1.1 mg/dL Normal 0.0-1.5 [facility] Comment on above: Performed By: #### P T, PTT, AMYL, CMP, LIPA, PHOS ####[place] [address]#### TRANSF ####[place] [address] Calcium 8.2 mg/dL Low 8.5-10.5 [facility] Comment on above: Performed By: #### P T, PTT, AMYL, CMP, LIPA, PHOS ####[place] [address]#### TRANSF ####[place] [address] Chloride 110 mmol/L Normal 98-110 [facility] Comment on above: Result Comment: Revi ewed Performed By: #### P T, PTT, AMYL, CMP, LIPA, PHOS ####[place] [address]#### TRANSF ####[place] [address] CO2 26 mmol/L Normal 23-32 [facility] Comment on above: Performed By: #### P T, PTT, AMYL, CMP, LIPA, PHOS ####[place] [address]#### TRANSF ####[place] [address] Creatinine 0.68 mg/dL Low 0.70-1.40 [facility] Comment on above: Performed By: #### P T, PTT, AMYL, CMP, LIPA, PHOS ####[place] [address]#### TRANSF ####[place] [address] eGFR (non-black) mL/min/{1.73_m2} Normal >60 [facility] Comment on above: Performed By: #### P T, PTT, AMYL, CMP, LIPA, PHOS ####[place] [address]#### TRANSF ####[place] [address] Glucose mass conc 158 mg/dL High 65-100 [facility] Comment on above: Performed By: #### P T, PTT, AMYL, CMP, LIPA, PHOS ####[place] [address]#### TRANSF ####[place] [address] Potassium molar conc 3.2 mmol/L Low 3.5-5.0 [facility] Comment on above: Performed By: #### P T, PTT, AMYL, CMP, LIPA, PHOS ####[place] [address]#### TRANSF ####[place] [address] Protein 6.1 g/dL Normal 6.0-8.4 [facility] Comment on above: Performed By: #### P T, PTT, AMYL, CMP, LIPA, PHOS ####[place] [address]#### TRANSF ####[place] [address] Sodium 148 mmol/L High 135-146 [facility] Comment on above: Result Comment: Norma sumner Performed By: #### P T, PTT, AMYL, CMP, LIPA, PHOS ####[place] [address]#### TRANSF ####[place] [address] Urea nitrogen 14 mg/dL Normal 10-25 [facility] Comment on above: Performed By: #### P T, PTT, AMYL, CMP, LIPA, PHOS ####[place] [address]#### TRANSF ####[place] [address] Magnesiumon 08-17-2017 Magnesium 2.4 mg/dL Normal 1.7-2.6 [facility] Comment on above: Performed By: #### P T, PTT, AMYL, CMP, LIPA, PHOS ####[place] [address]#### TRANSF ####[address]C[place], [place] [phone] NUTRITIONon 08-17-2017 NUTRITION HNO ID: [id number] thor: Alise Segura) BarsaService: Nutrition TherapyAuthor Type: [...] 87 kgResting Metabolic Rate: 1661Estimated kilocalorie needs: 6512-8102 kilocalories determined by 25-28kcal/kgEstimated protein needs:113 - 130 grams determined by 1.3-1.5 g/kg DosingweightEstimated fluid needs: 2200 - 2400 milliliters based on 1 mL per kcalAdmission Weight: 87.4 kg (192 lb 9.6 oz)Current Weight: 87.4 kg (192 lb 9.6 oz)Body mass index is 29.28 kg/(m2). overweightALLERGIESNo Known AllergiesCurrent Facility-Administered Medications:phenol 1 Candor (CHLORASEPTIC) 1 Candor MUCOUS MEMBRANE (TOPICAL MOUTH ANDTHROAT) q 2 [...] 08/14/17 0659 08/14/17 0700 - 08/15/17 0659 0 - 08/16/17 0659 08/16/17 0700 - 08/17/17 [...] assistance and weekends please page theGroup Pager -[phone] [facility] PROGRESSon 08-17-2017 PROGRESS HNO ID: [id number] thor: Khadar Guo: General SurgeryAuthor Type: PhysicianType: Progress NotesFiled: 08/17/2017 2:42 PMNote Text:PROGRESS NOTES - SURGICAL SERVICESPATIENT NAME: Rocio JacksonMRN: [id number] HISTORY OF PRESENT ILLNESS:No acute events overnight. [...] -- 2.2*Liver Function, Amylase, AND LipaseRecent Labs 7 6TPROT 6.1 6.4ALB 2.5* 2.5*ALT 90* 205*AST 36 [...] improved.Khadar Duffy MDFebruary 2017 2:42 PM Normal [facility] Phosphoruson 08-17-2017 Phosphate 2.3 mg/dL Low 2.5-4.5 [facility] Comment on above: Performed By: #### P T, PTT, AMYL, CMP, LIPA, PHOS ####[facility] [place], [place] [phone]#### TRANSF ####[facility] [place], [place] [phone] Protimeon 08-17-2017 INR Coag RelTime (Bld) 1.0 {INR} Normal 0.9-1.3 [facility] Comment on above: Result Comment: Tayler min K Antagonist (VKA) Therapeutic Range: INR 2 to 3 (Target INR of 2.5)Note: For patients treated with VKA drugs, such as warfarin, the [place] [employer] 2012 Guideline recommends [...] al. Chest 2012, 141:7S-47SFelice RA, et al. [facility] 2017, 70: 252-289 Performed By: #### P T, PTT, AMYL, CMP, LIPA, PHOS ####[place] [phone]#### TRANSF ####[place] [address] [place], [place] [phone] PT Sec 10.6 sec Normal 9.7-13.0 [facility] Comment on above: Performed By: #### P T, PTT, AMYL, CMP, LIPA, PHOS ####[place] [address]796[address]71[address]#### TRANSF ####[address] [phone] XR ERCP READ ONLYon 08-17-19 18 XR [...] Kerma: 134.0 mGyDose Area Product (DAP): 0.0 mGy*jjG2Xxzsvu time: 6:57 min:secRESULT: Images demonstrate an endoscope with contrast administration. A small amount of contrast is seen. The biliary system is not well opacified.IMPRESSION: Fluoroscopic assistance for ERCP procedureTranscriptionist: NII Transcribe Date/Time: Aug 18 2017 8:33ADictated by : REJI PATEL MDThis examination was interpreted and the report reviewed and electronically signed by: REJI PATEL MD on Aug 18 2017 8:34AM [id number] Normal [facility] CBCon 08-16-2017 Erythrocyte distribution width Auto Ratio (RBC) 15.4 % High 11.5-15.0 [facility] Comment on above: Performed By: #### P T, PTT, AMYL, CMP, LIPA, PHOS ####[place] [address]#### TRANSF ####[place] [address]-5[address] Erythrocytes (RBC) 3.49 10*6/uL Low 4.20-6.00 [facility] Comment on above: Performed By: #### P T, PTT, AMYL, CMP, LIPA, PHOS ####[place] [address]#### TRANSF ####[place] [address]854-5[address] Hematocrit (HCT) 29.9 % Low 39.0-51.0 [facility] Comment on above: Performed By: #### P T, PTT, AMYL, CMP, LIPA, PHOS ####[place] [address]#### TRANSF ####[place] [address]854[address] Hemoglobin mass conc (Bld) 9.8 g/dL Low 13.0-17.0 [facility] Comment on above: Performed By: #### P T, PTT, AMYL, CMP, LIPA, PHOS ####[place] [address]#### TRANSF ####[place] [address]854[address]5755 MCH 28.1 pG Normal 26.0-34.0 [facility] Comment on above: Performed By: #### P T, PTT, AMYL, CMP, LIPA, PHOS ####[place] [address]#### TRANSF ####[place] [address]854-5755 MCHC mass conc (RBC) 32.8 g/dL Normal 30.5-36.0 [facility] Comment on above: Performed By: #### P T, PTT, AMYL, CMP, LIPA, PHOS ####[place] [address]#### TRANSF ####[place] [address]854-5755 MCV 85.7 fL Normal 80.0-100.0 [facility] Comment on above: Performed By: #### P T, PTT, AMYL, CMP, LIPA, PHOS ####[place] [address]#### TRANSF ####[place] [address]854-5755 Platelet mean volume (PMV) 10.9 fL Normal 9.0-12.7 [facility] Comment on above: Performed By: #### P T, PTT, AMYL, CMP, LIPA, PHOS ####[place] [address]#### TRANSF ####[place] [phone] Platelets 335 10*3/uL Normal 150-400 [facility] Comment on above: Performed By: #### P T, PTT, AMYL, CMP, LIPA, PHOS ####[facility] [place], [place] [phone]#### TRANSF ####[facility] [place], [place] [phone] WBC (Leukocytes) 11.42 10*3/uL High 3.70-11.00 [facility] Comment on above: Performed By: #### P T, PTT, AMYL, CMP, LIPA, PHOS ####[facility] [place], [place] [phone]#### TRANSF ####[facility] [place], [place] [phone] CONSULTon 08-16-2017 CONSULT HNO ID: [id number] thor: Jessee Lottervice: Cardiovascular DiseaseAuthor Type: PhysicianType: ConsultsFiled: 08/16/2017 4:39 PMNote Text:CONSULT: CARDIOLOGY SERVICESERVICE DATE: August 16, 2017SERVICE TIME: 3:56 PMCONSULTING PHYSICIAN: Dr. Jessee DomingoP: No primary care provider on file.ATTENDING: Michael Cedillo) Moiz FOR CONSULT: ArrhythmiasASSESSMENT AND PLAN:Principal Problem:Atrial fibrillation.Persistent AF, ventricular rates +/- 110.Patient denies awareness.Hx of PAF, first episode 10/2016 in the setting of GI bleed. Treated withamiodarone which was stopped one month ago.On heparin infusion. Inr is elevated 2.0On home dose coreg 12.5 BIDPlan:Switch to metoprolol 25 TID.Monitor.CAD. Remote OR, PCI in 2013.No angina.Duodenal mass and obstructive jaundices/p perc drain placement.-plan is for ERCP with possible duodenal stent placement tomorrow.[facility] STAFF PHYSICIAN NOTE OF PERSONAL INVOLVEMENT IN [...] of the patient's care.STAFF PHYSICIAN: Jessee Mayorga, [facility] HOSPITALATE OF SERVICE: August 16, 2017TIME OF SERVICE: 4:36 [facility] COMPLAINT: abdominal painRocio Jackson is a 62 year old male, he lives in [facility]. 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 Followed by general [...] Date- ANGIOPLASTY HX 05/15/2011 2 stents s/p OR;[facility]- CHOLECYSTECTOMY 08/11/2017 [facility]- PICC LINE INSERT/CONSULT 08/16/2017Past Family History:non [...] 2017 : 3:56 PM PAGER/CONTACT #: Normal [facility] Magnesiumon 08-16-2017 Magnesium 2.3 mg/dL Normal 1.7-2.6 [facility] Comment on above: Performed By: #### P T, PTT, AMYL, CMP, LIPA, PHOS ####[facility] [place], [place] [phone]#### TRANSF ####[facility] [address] [place], [place] [phone] NURSING PROGon 08-16-2017 NURSING PROG HNO ID: [id number] thor: Nolvia Diaz (Rn) [place]evieve, RNService: PICC TeamAuthor Type: Registered NurseType: Nursing Progress NoteFiled: 08/16/2017 8:05 AMNote Text:PICC/VASCULAR ACCESS PROGRESS NOTESERVICE DATE: 08/16/2017SERVICE TIME: 8:00 amPICC line ordered, heparin gtt currently on hold, plan for patient toreceive TPN, Double lumen chloraguard PICC recommended. Will continue tofollow.SIGNATURE: Nolvia Vallejo RN PATIENT NAME: Rocio VizcarraTE: August 16, 2017 : 8:03 AM PAGER/CONTACT #: [phone] [facility] NURSING PROG HNO ID: [id number] thor: Shavonne Arreola) Tabatha, RNService: NursingAuthor Type: Registered NurseType: Nursing Progress NoteFiled: 08/16/2017 6:50 PMNote Text: Nursing Progress NotePatient Name: Rocio JacksonMRN: [id number] Location: [place] [address]/[id number] ____Daily Note:729: SROC alpha paged re: PT/INR result 2.0 [...] x meds,NGT to LCS maintained, draining brown fluid.45: Heparin gtt initiated @ 1000 units/hr per EMAR, order recv'd forvitamin K, paged SROC to clarify, GDary Lassiter states to give vitamin Kwith heparin gtt. Pt A+Ox3, flat affect. Skin jaundiced. Medicated forc/o upper ABD pain. Lap sites x 3 ADELA with skin glue, no drainage.1245: Dr Duffy rounding (covering for Dr Jolley) and discussed RNconcerns for INR 2.0 with heparin gtt, and vitamin K order. Per Dr Duffy,stop heparin gtt and admin vitamin K. Spoke with TERRAZZO LAYER for GI service,repeat PT/INR ordered for 1200 tomorrow 08/17 prior to ERCP scheduled umx1778, and if heparin gtt restarted prior to [...] 25 mg PO per new order, HR [id number]'s. SROC paged for chlorasetic spray and throat lozenge for pt c/othroat irritation from NGT.1800: Blood glucose 139, no SSI coverage required. Safety maintained.Pt resting in bed.This note was completed by: Shavonne Mays RN [facility] NURSING PROG HNO ID: [id number] thor: Deneen KenRn) Melanie, RNService: (none)Author Type: Registered NurseType: Nursing Progress NoteFiled: 08/16/2017 4:44 AMNote Text: Nursing Progress NotePatient Name: Rocio HayesN: [id number] Location: [place] [address]/IM-[id number] ____Daily Note:Late entry 08/15 Labs drawn for start of heparin drip. INR2.0 Order to notify team when INR equal to or greater than 2.0.0350: Team notified that INR 2.0. Order to hold heparin drip until morninglabs back with INR results. Will continue to monitor.0428: Text page to surgery for bladder scan of 665 ml and change in NGcolor from bile to brownish [id number]: SROC up to see and assess pt. Continue to monitor bladder as pt ishaving no symptoms of discomfort at this time. Wait to start heparin dripuntil Am labs. Continue to monitor NG output.This note was completed by: Deneen Navarro RN [facility] PLAN OF CAREon 08-16-2017 PLAN OF CARE HNO ID: [id number] thor: Gissell (Griselda) GertheronkService: GastroenterologyAuthor Type: Nurse PractitionerType: Plan of CareFiled: 08/16/2017 12:58 PMNote Text:In anticipation of ERCP tomorrow:INR notedPatient will need Vitamin K today and stat INR one hour prior to procedure(ordered)Stop Heparin drip 6 hrs prior to procedure as per surgeryDiscussed with Dr. Candelaria you for allowing us to participate in the care of Mr. Jackson. Pleasecall with any questions or concerns.Gissell Serrato CNPNorthshotheron GastroenterologyOffice: Cell: [facility] PROCEDUREon 08-16-2017 PROCEDURE HNO ID: [id number] thor: Luis (Rn) Edmund, RNService: PICC TeamAuthor [...] YESSign Out Discussion: Shayan Shaffer RNCATHETER PLACEMENTBrand: Radhashawna Lot: [id number] of Lumens: 2Type of PICC: Power Injectable [...] NoneCOMPLICATIONS: NonePatient Education Materials: Placed in chartThe [facility] Central Line Insertion checklist, attached to theCentral Line-Associated Bloodstream Infection Prevention Policy, wasutilized during this procedure.QUESTIONS or PROBLEMS: Page [phone] weekendSIGNATURE: Luis Shaffer RN PATIENT NAME: Rocio FrischDATE: August 16, 2017 : 8:35 AM PAGER/CONTACT PHONE: [facility] PROGRESSon 08-16-2017 PROGRESS HNO ID: [id number] thor: Luordes Earle: GastroenterologyAuthor Type: PhysicianType: Progress NotesFiled: 08/16/2017 6:45 PMNote Text:[facility] Progress NoteSERVICE DATE: August 16, 2017SUBJECTIVENo abd pain, n/v, f/c. Afib overnight. Passing gas. No BM.OBJECTIVEMEDICATIONSCurre rhode island hospital medications:potassium phosphate 30 mmol in NaCl [...] 0.2 mg INTRAVENOUS q 2 H PRNPE 08/16/1806BP: 108/64 117/60 113/66Pulse: 92 (!) 128 92 96Resp: 18 17 16Temp: 36.9 ?C (98.4 ?F) 36.7 ?C (98 ?F) 37.4 ?C (99.3 ?F)TempSrc: Oral Oral OralSpO2: 92% 92% 95%Weight:Height:Body mass index is 29.28 kg/(m2).GENERAL: NAD, NGDx2KSUWD: PERRLA, EOMI, normal OPCV: RRR, normal S1, S2, no mrgABDOMEN: Soft, non-tender, non-distended, normoactive BS, ROMINA drain w bileEXT: wwp, no cceNeuro: grossly nonfocalLABSreviewedIMAGINGr eviewedASSESSMENT AND PLANMr. Renetta is a 62 year old male with [...] [facility] for allowing us to participate in the care of this patient.Please call with any further questions or concerns.Lourdes Ferrari MDCantua Creek GastroenterologyPg#: [phone]: Lourdes Ferrari MD PATIENT NAME: Rocio JacksonDATE: August 16, 2017 : 2:42 PM PAGER: [phone] [facility] PROGRESS HNO ID: [id number] thor: Khadar Chaneye: General SurgeryAuthor Type: PhysicianType: Progress NotesFiled: 08/16/2017 1:47 PMNote Text: SURGERY INPATIENT PROGRESS NOTESName: Rocio TorresdonnyMRN: [id number] and Plan:62 year old male with near-obstructing [...] lb 9.6 oz) SpO2 92% BMI 29.28 kg/n0Cygbzu/Output Summary (Last 24 hours) at 08/16/17 0835Last [...] results tomorrow.Khadar Duffy MDFebruary 2017 1:47 PM [facility] PT EDon 08-16-2017 PT ED HNO ID: [id number] thor: Luis (Rn) Edmund, RNService: PICC TeamAuthor Type: Registered NurseType: Patient EducationFiled: 08/16/2017 8:34 AMNote Text:PATIENT EDUCATION TOPIC: PROCEDURE / SURGERY: Procedure/Surgery: PICCinsertion under US guidancePATIENT NAME: Rocio Boudreaux: [id number] LOCATION: [place] [address]/NA-[id number] S TO LEARNCOGNITIVE ABILITY: Alert and orientedMOTIVATION TO LEARN: EagerInterestedFAMILY SUPPORT: High - Very involved in pt careINSTRUCTION PROVIDED TO: Patient and Family memberPATIENT LEARNS BEST BY: Individual InstructionVerbal InstructionFACTORS AFFECTING LEARNING: NonePHYSICAL LIMITATIONS AFFECTING LEARNING: NoneLEARNING RESPONSEDIAGNOSIS: ADULT: Duodenal obstructionPATIENT/FAMILY RESPONSE: Verbalizes understanding of: NIED-YFILWZTJIHKWBEVEJNIRV-M orrect actions to take to reduce post procedurecomplicationsPRE-IN OCEDURE INSTRUCTIONS-Correct action to take to follow pre-procedureinstructionsMET HOD OF INSTRUCTION: Individual instructionVerbal instructionFOLLOW-UP PLAN: Patient instructed to call with any further issuesFollow-up with Primary CareINSTRUCTIONAL AIDS USED: NASUPPLEMENTAL MATERIAL PROVIDED TO PATIENT: NoneREFERRAL (RECOMMENDATION): NoneElectronically Signed By: Luis Shaffer RN [facility] Phosphoruson 08-16-2017 Phosphate 2.1 mg/dL Low 2.5-4.5 [facility] Comment on above: Performed By: #### P T, PTT, AMYL, CMP, LIPA, PHOS ####[facility] [place], [place] [phone]#### TRANSF ####[facility] [place], [place] [phone] Protimeon 08-16-2017 INR Coag RelTime (Bld) 2.0 {INR} High 0.9-1.3 [facility] Comment on above: Result Comment: Tayler min K Antagonist (VKA) Therapeutic Range: INR 2 to 3 (Target INR of 2.5)Note: For patients treated with VKA drugs, such as warfarin, the [place] [employer] 2012 Guideline recommends [...] of 3).Keegan GH, et al. Chest 2012, 141:7S-47SNishimivette RA, et al. [facility] 2017, 70: 252-289 Performed By: #### P T, PTT, AMYL, CMP, LIPA, PHOS ####[address] [phone]#### TRANSF ####[place] [address] [place], [place] [phone] PT Sec 19.5 sec High 9.7-13.0 [facility] Comment on above: Performed By: #### P T, PTT, AMYL, CMP, LIPA, PHOS ####[address] [phone]#### TRANSF ####[address] [phone] XR CHEST 1V PORT POST PICC - [...] place; Check tip position following PICC placement.M: AICJH0Syhsjegaxm: 08/13/2017RESULT:1. Lines / Tubes: a. Interval placement [...] ease, it is acceptable for venous access use.Global Marketing Specialist: NII Transcribe Date/Time: Aug 16 2017 10:15ADictated by : AURORA ROMERO MDThis examination was interpreted and the report reviewed and electronically signed by: AURORA ROMERO MD on Aug 16 2017 10:16AM [id number] [facility] ALLIED HEALTHon 08-15-2017 ALLIED HEALTH HNO ID: [id number] thor: Jennifer Win CtService: (none)Author Type: (none)Type: Allied HealthFiled: 08/15/2017 2:49 PMNote Text: Radiology Service Progress NotePATIENT NAME: Rocio JacksonN: [id number] OF SERVICE: August 15, 2017TIME: 2:48 PMPATIENT IDENTITY VERIFICATION COMPLETED USING TWO (2) METHODS: Patientconfirmed name verbally and ID band matches..PATIENT GENDER DATA: MalePATIENT RELEVANT IMPLANT DATA REVIEWED: Not ApplicableRADIOLOGY DEPARTMENT: CT; Exam(s) Completed: ABSCESS DRAINAGEPERIPHERAL IV DATA: Not applicableSIGNED BY: Jennifer Win CtFebrufelch 2017 2:48 PM [facility] BRIEF OP NOTon 08-15-2017 BRIEF OP NOT HNO ID: [id number] thor: Reji PatelSerkalliee: RadiologyAuthor Type: PhysicianType: Brief [...] 15, 2017 : 2:45 PM PAGER/CONTACT #: [phone] Normal [facility] Blood Cultureon 08-15-2017 Bacteria culture Sp. Request/Comment: - The blood culture bottles are underfilled. Adding volume lower or higher than the 8 to 10 mL per bottle, which is the manufacturers recommended volume, may adversely affect the recovery and/or detection of organisms. 10.9MLCulture Result - No growth 5 days Normal [facility] Comment on above: Performed By: #### P T, PTT, AMYL, CMP, LIPA, PHOS ####[place] [address]#### TRANSF ####[place] [address] Bacteria culture Culture Result - No growth 5 days Normal [facility] Comment on above: Performed By: #### P T, PTT, AMYL, CMP, LIPA, PHOS ####[place] [phone]#### TRANSF ####[place] [address] CBCon 08-15-2017 Erythrocyte distribution width Auto Ratio (RBC) 15.2 % High 11.5-15.0 [facility] Comment on above: Performed By: #### P T, PTT, AMYL, CMP, LIPA, PHOS ####[place] [address]#### TRANSF ####[place] [address] Erythrocytes (RBC) 3.46 10*6/uL Low 4.20-6.00 [facility] Comment on above: Performed By: #### P T, PTT, AMYL, CMP, LIPA, PHOS ####[place] [address]#### TRANSF ####[place] [address] Hematocrit (HCT) 29.3 % Low 39.0-51.0 [facility] Comment on above: Performed By: #### P T, PTT, AMYL, CMP, LIPA, PHOS ####[place] [address]#### TRANSF ####[place] [address] Hemoglobin mass conc (Bld) 9.7 g/dL Low 13.0-17.0 [facility] Comment on above: Performed By: #### P T, PTT, AMYL, CMP, LIPA, PHOS ####[place] [address]#### TRANSF ####[place] [address] MCH 28.0 pG Normal 26.0-34.0 [facility] Comment on above: Performed By: #### P T, PTT, AMYL, CMP, LIPA, PHOS ####[place] [address]#### TRANSF ####[place] [address] MCHC mass conc (RBC) 33.1 g/dL Normal 30.5-36.0 [facility] Comment on above: Performed By: #### P T, PTT, AMYL, CMP, LIPA, PHOS ####[place] [address]#### TRANSF ####[place] [phone] MCV 84.7 fL Normal 80.0-100.0 [facility] Comment on above: Performed By: #### P T, PTT, AMYL, CMP, LIPA, PHOS ####[place] [address]#### TRANSF ####[place] [address] Platelet mean volume (PMV) 10.2 fL Normal 9.0-12.7 [facility] Comment on above: Performed By: #### P T, PTT, AMYL, CMP, LIPA, PHOS ####[place] [address]#### TRANSF ####[place] [address] Platelets 302 10*3/uL Normal 150-400 [facility] Comment on above: Performed By: #### P T, PTT, AMYL, CMP, LIPA, PHOS ####[place] [address]#### TRANSF ####[place] [address] WBC (Leukocytes) 12.79 10*3/uL High 3.70-11.00 [facility] Comment on above: Performed By: #### P T, PTT, AMYL, CMP, LIPA, PHOS ####[address]#### TRANSF ####[place] [phone] Erythrocyte distribution width Auto Ratio (RBC) 15.3 % High 11.5-15.0 [facility] Comment on above: Performed By: #### P T, PTT, AMYL, CMP, LIPA, PHOS ####[place] [address]#### TRANSF ####[place] [address] Erythrocytes (RBC) 3.99 10*6/uL Low 4.20-6.00 [facility] Comment on above: Performed By: #### P T, PTT, AMYL, CMP, LIPA, PHOS ####[place] [address]#### TRANSF ####[place] [address] Hematocrit (HCT) 33.4 % Low 39.0-51.0 [facility] Comment on above: Performed By: #### P T, PTT, AMYL, CMP, LIPA, PHOS ####[place] [address]#### TRANSF ####[place] [address] Hemoglobin mass conc (Bld) 11.1 g/dL Low 13.0-17.0 [facility] Comment on above: Performed By: #### P T, PTT, AMYL, CMP, LIPA, PHOS ####[place] [address]#### TRANSF ####[place] [address] MCH 27.8 pG Normal 26.0-34.0 [facility] Comment on above: Performed By: #### P T, PTT, AMYL, CMP, LIPA, PHOS ####[place] [address]#### TRANSF ####[place] [phone] MCHC mass conc (RBC) 33.2 g/dL Normal 30.5-36.0 [facility] Comment on above: Performed By: #### P T, PTT, AMYL, CMP, LIPA, PHOS ####[place] [address]#### TRANSF ####[place] [address] MCV 83.7 fL Normal 80.0-100.0 [facility] Comment on above: Performed By: #### P T, PTT, AMYL, CMP, LIPA, PHOS ####[place] [address]#### TRANSF ####[place] [address] Platelet mean volume (PMV) 11.9 fL Normal 9.0-12.7 [facility] Comment on above: Performed By: #### P T, PTT, AMYL, CMP, LIPA, PHOS ####[place] [address]#### TRANSF ####[place] [phone] Platelets 328 10*3/uL Normal 150-400 [facility] Comment on above: Performed By: #### P T, PTT, AMYL, CMP, LIPA, PHOS ####[place] [address]#### TRANSF ####[place] [address] WBC (Leukocytes) 16.33 10*3/uL High 3.70-11.00 [facility] Comment on above: Performed By: #### P T, PTT, AMYL, CMP, LIPA, PHOS ####[facility] [place], [place] [phone]#### TRANSF ####[facility] [address] [place], [place] [phone] CONSULTon 08-15-2017 CONSULT HNO ID: [id number] thor: Gissell Michael) GerrekService: GastroenterologyAuthor Type: Nurse PractitionerType: ConsultsFiled: 08/15/2017 4:44 PMNote Text: -Attestation signed by Lourdes Ferrari at 08/17/2017 10:00 AMATTENDING NOTE:?I performed a history and physical examination of the patient and supervisedand discussed plan of care and management with the PA/TAKE DOWN SORTER. I reviewed thePA/TAKE DOWN SORTER's note and agree with the documented findings and plan of care.? ?Thank you for allowing us to participate in the care of this patient. Pleasecall with any questions or concerns.Anika TamayoNorth Valley Health Center GastroenterologyPager [phone] --------CONSULT: [facility] Gastroenterology SERVICESERVICE DATE: 08/15/2017SERVICE TIME: 9:04 AMREASON FOR CONSULT: ERCPREQUESTING PHYSICIAN: Dr. [facility]ASH[facility] PHYSICIAN: No primary care provider on file.SubjectiveMr. [...] became acutely worse. [facility] 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 He was transferred to [facility] for further evaluationand treatment. Following admission patient [...] Date- ANGIOPLASTY HX 05/15/2011 2 stents s/p OR;[facility]- CHOLECYSTECTOMY 08/11/2017 [facility] family history on file.Social HistorySubstance Use Topics- [...] by mouth once daily. Disp: Rfl:08/[facility]/2017 [facility] medications:oxyCODONE IR 5 mg tab(s) (ROXICODONE) [...] control as per primary service-Maintain NPO-IV Cipro fellmongery worker for ERCP (ordered)D/w Dr. Nava and Dr. AquinoattSIGNATURE: Gissell Serrato CNP PATIENT NAME: Rocio FrischDATE: August 15, 2017 : 9:04 AM PAGER: [phone] [facility] [address] PERIT/RETROP FL BIon [...] with administration of agent, ends when continuous kdzg-ko-zubb time ends): 14 minutese) Patient monitoring: Continuous ECG, pulse oximetry and cardiopulmonary monitoring was performed during the entire procedure by both the physician and nurse.-I, the procedural radiologist personally supervised and directed the independent trained observer who assisted in monitoring the patient's level of consciousness and physiological status throughout the procedure.Catheter/ needle used: 5 [place] Yueh, 8 [place] pigtail.Imaging guidance with images saved into the permanent archive: CTTechnique: Using CT guidance a 5 [place] catheter was inserted into the abscess collection in the gastrohepatic location. Serial dilatation was performed over a wire and an 8 [place] pigtail catheter was inserted into the abscess collection. Approximately 110 cc of dark red serous fluid was obtained.Sample obtained: As aboveEstimated blood loss: Less than 1 ccComplications: NoneIMPRESSION: CT-guided abscess drainage of gastrohepatic fluid collection. Nearly the entire fluid collection was drained during this procedure. An 8 [place] pigtail catheter remains in the location of the fluid collection and was connected to an accordion drainage bag. Patient was sent back to the room with the catheter.Global Marketing Specialist: NII Transcribe Date/Time: Aug 15 2017 5:47PDictated by : REJI PATEL, MDThis examination was interpreted and the report reviewed and electronically signed by: REJI PATEL MD on Aug 15 2017 6:07PM [id number] Normal [facility] Comp Metabolic Panelon 08-15 Alanine aminotransferase (ALT) 205 U/L High 5-50 [facility] Comment on above: Performed By: #### P T, PTT, AMYL, CMP, LIPA, PHOS ####[place] [address]#### TRANSF ####[place] [address] Albumin 2.5 g/dL Low 3.5-5.0 [facility] Comment on above: Performed By: #### P T, PTT, AMYL, CMP, LIPA, PHOS ####[place] [address]#### TRANSF ####[place] [address] Alkaline phosphatase (ALP) 515 U/L High 40-150 [facility] Comment on above: Performed By: #### P T, PTT, AMYL, CMP, LIPA, PHOS ####[address]#### TRANSF ####[place] [address] Anion gap 14 mmol/L Normal 9-18 [facility] Comment on above: Performed By: #### P T, PTT, AMYL, CMP, LIPA, PHOS ####[address]#### TRANSF ####[place] [address] Aspartate aminotransferase (AST) 74 U/L High 7-40 [facility] Comment on above: Performed By: #### P T, PTT, AMYL, CMP, LIPA, PHOS ####[place] [address]#### TRANSF ####[place] [address] Bilirubin (total) 1.7 mg/dL High 0.0-1.5 [facility] Comment on above: Performed By: #### P T, PTT, AMYL, CMP, LIPA, PHOS ####[place] [address]#### TRANSF ####[place] [address] Calcium 8.7 mg/dL Normal 8.5-10.5 [facility] Comment on above: Performed By: #### P T, PTT, AMYL, CMP, LIPA, PHOS ####[place] [address]#### TRANSF ####[place] [address] Chloride 98 mmol/L Normal 98-110 [facility] Comment on above: Performed By: #### P T, PTT, AMYL, CMP, LIPA, PHOS ####[place] [address]#### TRANSF ####[place] [id number] CO2 24 mmol/L Normal 23-32 [facility] Comment on above: Performed By: #### P T, PTT, AMYL, CMP, LIPA, PHOS ####[place] [address]#### TRANSF ####[place] [address] Creatinine 0.62 mg/dL Low 0.70-1.40 [facility] Comment on above: Performed By: #### P T, PTT, AMYL, CMP, LIPA, PHOS ####[place] [address]#### TRANSF ####[phone] eGFR (non-black) mL/min/{1.73_m2} Normal >60 [facility] Comment on above: Performed By: #### P T, PTT, AMYL, CMP, LIPA, PHOS ####[place] [address]#### TRANSF ####[place] [phone] Glucose mass conc 151 mg/dL High 65-100 [facility] Comment on above: Performed By: #### P T, PTT, AMYL, CMP, LIPA, PHOS ####[address]#### TRANSF ####[place] [address] Potassium molar conc 3.5 mmol/L Normal 3.5-5.0 [facility] Comment on above: Performed By: #### P T, PTT, AMYL, CMP, LIPA, PHOS ####[address]#### TRANSF ####[place] [address] Protein 6.4 g/dL Normal 6.0-8.4 [facility] Comment on above: Performed By: #### P T, PTT, AMYL, CMP, LIPA, PHOS ####[address]#### TRANSF ####[place] [address] Sodium 136 mmol/L Normal 135-146 [facility] Comment on above: Performed By: #### P T, PTT, AMYL, CMP, LIPA, PHOS ####[facility] [place], [place] [phone]#### TRANSF ####[place] [address] [place], [place] [phone] Urea nitrogen 12 mg/dL Normal 10-25 [facility] Comment on above: Performed By: #### P T, PTT, AMYL, CMP, LIPA, PHOS ####[address] [phone]#### TRANSF ####[facility] [place], [place] [phone] HISTORY PHYSICALon HISTORY PHYSICAL HNO ID: [id number] thor: Reji Samaniegoe: RadiologyAuthor Type: PhysicianType: HANDPFiled: [...] Date- ANGIOPLASTY HX 05/15/2011 2 stents s/p OR;[facility]- [facility]CYST[facility]OMY 08/11/2017 [facility] medications as of 08/13/17 2301Medication Sig Last Dose Takingaspirin, enteric coated (ECOTRIN LOW STRENGTH) 81 mg EC tablet Take 162 mgby mouth once daily. Past Week at Unknown time Yeslisinopril 2.5 mg tablet Take 2.5 mg by mouth once daily. 08/11/2017 [id number] Yesatorvastatin (LIPITOR) 40 mg tablet Take 40 [...] August 15, 2017 : 2:05 PM PAGER: [phone] Normal [facility] Magnesiumon 08-15-2017 Magnesium 2.0 mg/dL Normal 1.7-2.6 [facility] Comment on above: Performed By: #### P T, PTT, AMYL, CMP, LIPA, PHOS ####[facility] [place], [place] [phone]#### TRANSF ####[facility] [place], [place] [phone] NURSING PROGon 08-15-2017 NURSING PROG HNO ID: [id number] thor: Saima Kramer (Rn) MOUSTAPHA Richardsonervice: (none)Author Type: Registered NurseType: Nursing Progress NoteFiled: 08/15/2017 6:48 PMNote Text: Nursing Progress NotePatient Name: Rocio JacksonMRN: [id number] Location: [place] [address]/MP-[id number] ____Daily Note:Pt phos level 2.2 - text [...] heart rate elevated. Text page to SROC tomshannon aware.1715: SROC at bedside to assess patient. [...] note was completed by: Saima Richardson, RN Normal [facility] NUTRITIONon 08-15-2017 NUTRITION HNO ID: [id number] thor: Alana Segura) SunilService: Nutrition TherapyAuthor Type: Registered DietitianType: NutritionFiled: 08/15/2017 1:17 PMNote Text:NUTRITION SUPPORT TEAMTOPIC: NUTRITION SUPPORT PROGRESS NOTEPATIENT NAME: Rocio HayesN: [id number] OF : 1955DATE: 08/15/2017Nutritional Status: SEVERE PROTEIN [...] 87 kgResting Metabolic Rate: 1661Estimated kilocalorie needs: 9000-8260 kilocalories determined by 25-28kcal/kgEstimated protein needs:113 - [...] lb 9.6 oz) SpO2 92% BMI 29.28 kg/t5Pmhktbu Weight: Weight: 87.4 kg (192 lb 9.6 [...] -- --CA 8.7 -- 8.5 8.9Recent Labs [id number] 7*Accuchecks:Glucose, Point of Care (mg/dL)Date Value08/15/2017 141 (A)08/15/2017 154 (A)08/15/2017 138 (A)08/14/2017 148 (A)Alana Barber RD, LDPager: For further assistance and weekends please page the Group Jeaey-[phone] :3 [facility] PROGRESSon 08-15-2017 PROGRESS HNO ID: [id number] thor: Kael (Res) Kocharyan, MDService: General SurgeryAuthor Type: ResidentType: Progress NotesFiled: 08/15/2017 7:29 PMNote Text:GENERAL SURGERY PROGRESS NOTENAME: Rocio Boudreaux: [id number] 2017 7:20 PMASSESSMENT AND PLAN:Mr. Jackson is [...] for TPN- Dispo: ARLINE HERNANDEZ MDGeneral SurgeryPager: [phone]*On weekends or nights (after 1800) please contact the surgery on callpager.*SUBJECTIVE: No acute issues overnight and during the day. Restingcomfortably in bed.OBJECTIVE:BP 109/58 Pulse 78 Temp 36.3 ?C (97.4 ?F) (Oral) Resp 18 Ht 172.7cm (5' 8 ) Wt 87.4 kg (192 lb 9.6 oz) SpO2 94% BMI 29.28 kg/f7OYOAKNR: alert, NADLUNGS: breathing comfortablyCARDIAC: irregularABDOMEN: mildly TTP in upper abd, mildly distended, softEXTREMITIES: warm and well perfusedDRAINS/LINES: bilious drainage from JPDate 08/14/17 1500 - 08/15/17 0659 08/15/17 0700 - 08/16/17 0659Shift 9497-3897 3832-5763 24 Hour Total 3546-7558 5919-5401 5533-7231 24Hour TotalINTAKE PO 60 60 30 30 PO 60 60 30 30 IV 2018 2018 537 233 0735 NS 0.9% 2018 2018 713 565 8019 Irrigants 20 40 30 30 Irrigant/Flush Amount In (GI Feed/Drain 08/14/17 0109 Nasogastric RightNaris 18 Fr) 20 40 30 30 Shift Total 20989 744 665 1409OUTPUT Urine 575 1125 425 425 Void (ml) 575 1125 425 425 Tubes 203 102 3876 330 445 775 Drain/Tube Output (Drain/Tube Admission to [facility] RightLower Quadrant Abdomen) 260 30 370 140 70 210 Drain/Tube Output (Drain/Tube 08/15/17 1530 Assessment Right UpperAbdomen) 275 275 Output (GI Feed/Drain 08/14/17 0109 Nasogastric Right Naris 18 Fr) 924032 6123 190 100 290 # of BMs Number [...] 395*ALT 205* -- 370* -- 418* Normal [facility] PROGRESS HNO ID: [id number] thor: Khadar DuffyService: General SurgeryAuthor Type: PhysicianType: [...] Duffy MDFebruary 2017 5:53 PM(late entry) Normal [facility] PT EDon 08-15-2017 PT ED HNO ID: [id number] thor: Dhara (Rn) MOUSTAPHA Riveroervice: RadiologyAuthor Type: [...] instructionPATIENT / FAMILY RESPONSE: Verbalizes understanding of: [id number] orrect actions to take to reduce post procedurecomplicationsPRE-IN OCEDURE INSTRUCTIONS-Correct action to take to follow pre-procedureinstructionsFOL LOW-UP PLAN: Complete - No need for follow-upSUPPLEMENTAL MATERIAL: Title of written material: Abcess drain andSedation informationREFERRAL (RECOMMENDATION): NoneElectronically Signed By: Dhara Rivero RN In Department: [address] Normal [facility] PTT,Anticoag Therapyon 08-15 aPTT 39.8 s High 23.0-32.4 [facility] Comment on above: Result Comment: Unfr actionated [...] laboratory APTT reagent in use throughout the [facility]. Performed By: #### P T, PTT, AMYL, CMP, LIPA, PHOS ####[place] [address]796[address]#### TRANSF ####[facility] [address], [place] [phone] Phosphoruson 08-15-2017 Phosphate 2.2 mg/dL Low 2.5-4.5 [facility] Comment on above: Performed By: #### P T, PTT, AMYL, CMP, LIPA, PHOS ####[place] [address]796[address]#### TRANSF ####[facility], [place] [phone] Protimeon 08-15-2017 INR Coag RelTime (Bld) 2.0 {INR} High 0.9-1.3 [facility] Comment on above: Result Comment: Tayler min K Antagonist (VKA) Therapeutic Range: INR 2 to 3 (Target INR of 2.5)Note: For patients treated with VKA drugs, such as warfarin, the [place] [employer] 2012 Guideline recommends [...] al. Chest 2012, 141:7S-47SFelice RA, et al. [facility] 2017, 70: 252-289 Performed By: #### P T, PTT, AMYL, CMP, LIPA, PHOS ####[place] [address]#### TRANSF ####[place] [address]854[address] PT Sec 19.4 sec High 9.7-13.0 [facility] Comment on above: Performed By: #### P T, PTT, AMYL, CMP, LIPA, PHOS ####[place] [address]#### TRANSF ####[place] [address]854[address] Urine Cultureon 08-15-2017 Urine culture, bacteria Sp. [...] <=0.25 FErtapenem SUSCEPTIBLE <=0.5 F Critically abnormal [facility] Comment on above: Performed By: #### P T, PTT, AMYL, CMP, LIPA, PHOS ####[facility] [place], [place] [phone]#### TRANSF ####[facility] [place], [place] [phone] Wound Culture/Stainon 2017 Wound Culture/Stain Sp. Request/Comment: - Specimen received in sterile container.Smear Result - Rare Gram positive cocci in pairs and chains --> ABNORMAL ALERT No Polymorphonuclear LeukocytesCulture Result - Moderate Streptococcus mutans group --> ABNORMAL ALERTORGANISM: Streptococcus mutans groupMETHOD: Minimum inhibitory concentration (VIZION)Antibiotic Interp JOLENE StatusPenicillin G SUSCEPTIBLE <=0.03 FVancomycin SUSCEPTIBLE <=0.5 FCeftriaxone SUSCEPTIBLE <=0.12 FClindamycin SUSCEPTIBLE <=0.12 F Critically abnormal [facility] Comment on above: Performed By: #### W CUL ####[place] [address] [place], [place] [phone] ALLIED HEALTHon 08-14-2017 ALLIED HEALTH HNO ID: [id number] thor: Albert Sutherland: (none)Author Type: (none)Type: Allied HealthFiled: 08/14/2017 7:17 PMNote Text: Radiology Service Progress NotePATIENT NAME: Rocio Boudreaux: [id number] OF SERVICE: August 14, 2017TIME: 7:16 PMPATIENT IDENTITY VERIFICATION COMPLETED USING TWO (2) METHODS: Patientconfirmed name verbally and ID band matches..PATIENT GENDER DATA: MalePATIENT RELEVANT IMPLANT DATA REVIEWED: Not ApplicableCONTRAST INDUCED NEPHROPATHY RISK FACTORS: Patient age > 60 yearsCREATININE:CreatinineDa te Value Ref Range Hhbyyl4608/14/2017 0.61 (L) 0.70 - 1.40 mg/dL Final08/14/2017 0.63 (L) 0.70 - 1.40 mg/dL Final eGFR-All Other RacesDate Value Ref Range Mcpwvz8408/14/2017 >60 >60 . Final eGFR- AmericanDate Value Ref Range Zddbbc9608/14/2017 >60 >60 Final P.O.C.T. RESULTS: POC done: Yes, See Lab Tab August 14, 2017RADIOLOGIST NOTIFIED?: NoALLERGIES: Reviewed and unchangedCONTRAST ALLERGY: NO.PERIPHERAL IV ACCESS: Inpatient: see LDA documentationRADIOLOGY DEPARTMENT: CT; Exam(s) Completed: Abdomen/Pelvis , Chest andPancreasSIGNED BY: Albert Vaughan 2017 7:16 PM [facility] ALLIED HEALTH HNO ID: [id number] thor: Denise Graham RTService: (none)Author Type: (none)Type: Allied HealthFiled: 08/14/2017 1:32 AMNote Text: Radiology Service Progress NotePATIENT NAME: Rocio TorresBryannaN: [id number] OF SERVICE: August 14, 2017TIME: 1:32 AMPATIENT IDENTITY VERIFICATION COMPLETED USING TWO (2) METHODS: Patientconfirmed name verbally and ID band matches..PATIENT GENDER DATA: MalePATIENT RELEVANT IMPLANT DATA REVIEWED: Not ApplicableRADIOLOGY DEPARTMENT: General X-ray: Exam(s) Completed: Chest X-RayAbdomen X-Ray AbdomenPERIPHERAL IV DATA: Not applicableSIGNED BY: Denise Graham [facility] 2017 1:32 AM Normal [facility] APTTon 08-14-2017 aPTT 31.6 s Normal 23.0-32.4 [facility] Comment on above: Result Comment: Unfr actionated [...] laboratory APTT reagent in use throughout the [facility]. Performed By: #### P T, PTT, AMYL, CMP, LIPA, PHOS ####[place] [address]#### TRANSF ####[address] [phone] aPTT 30.2 s Normal 23.0-32.4 [facility] Comment on above: Result Comment: Unfr actionated [...] laboratory APTT reagent in use throughout the [facility]. Performed By: #### P T, PTT, AMYL, CMP, LIPA, PHOS ####[place] [phone]#### TRANSF ####[place] [phone] Amylaseon 08-14-2017 Amylase 59 U/L Normal 0-137 [facility] Comment on above: Performed By: #### P T, PTT, AMYL, CMP, LIPA, PHOS ####[place] [phone]#### TRANSF ####[address] [phone] Bilirubin, Fluidon 8 Bilirubin (direct) 6.1 mg/dL Critically abnormal See Comment [facility] Comment on above: Result Comment: Sero us [...] document C49A. SAIMA Contreras: Clinical Laboratory Standards [place]: 2007.2. Nani Y, Hay T, Andra Y et al. The Determination of Bile Leakage in Complex Hepatectomy Based on the Guidelines of the International Study Group of Liver Surgery. World J Surg. 2014 38:168-176.This test was developed and its performance characteristics determined by [facility]'s [facility] [place] ([facility]).It has not been cleared or approved by the FDA. [facility] is regulated under CLIA as qualified to perform high-complexity testing.This test is used for clinical purposes. It should not be regarded as investigational or for research. Performed By: #### P T, PTT, AMYL, CMP, LIPA, PHOS ####[place] [address]#### TRANSF ####[place] [address] Fluid Other Normal [facility] Comment on above: Result Comment: ROMINA HERNÁNDEZ Performed By: #### P T, PTT, AMYL, CMP, LIPA, PHOS ####[place] [address]#### TRANSF ####[place] [address] CBCon 08-14-2017 Erythrocyte distribution width Auto Ratio (RBC) 15.2 % High 11.5-15.0 [facility] Comment on above: Performed By: #### P T, PTT, AMYL, CMP, LIPA, PHOS ####[place] [address]#### TRANSF ####[place] [address] Erythrocytes (RBC) 3.70 10*6/uL Low 4.20-6.00 [facility] Comment on above: Performed By: #### P T, PTT, AMYL, CMP, LIPA, PHOS ####[place] [address]#### TRANSF ####[place] [address] Hematocrit (HCT) 31.7 % Low 39.0-51.0 [facility] Comment on above: Performed By: #### P T, PTT, AMYL, CMP, LIPA, PHOS ####[place] [address]#### TRANSF ####[place] [address] Hemoglobin mass conc (Bld) 10.7 g/dL Low 13.0-17.0 [facility] Comment on above: Performed By: #### P T, PTT, AMYL, CMP, LIPA, PHOS ####[place] [address]#### TRANSF ####[place] [address] MCH 28.9 pG Normal 26.0-34.0 [facility] Comment on above: Performed By: #### P T, PTT, AMYL, CMP, LIPA, PHOS ####[place] [address]#### TRANSF ####[place] [address] MCHC mass conc (RBC) 33.8 g/dL Normal 30.5-36.0 [facility] Comment on above: Performed By: #### P T, PTT, AMYL, CMP, LIPA, PHOS ####[place] [address]#### TRANSF ####[place] [address] MCV 85.7 fL Normal 80.0-100.0 [facility] Comment on above: Performed By: #### P T, PTT, AMYL, CMP, LIPA, PHOS ####[place] [address]#### TRANSF ####[place] [phone] Platelet mean volume (PMV) 12.1 fL Normal 9.0-12.7 [facility] Comment on above: Performed By: #### P T, PTT, AMYL, CMP, LIPA, PHOS ####[place] [address]#### TRANSF ####[place] [phone] Platelets 285 10*3/uL Normal 150-400 [facility] Comment on above: Performed By: #### P T, PTT, AMYL, CMP, LIPA, PHOS ####[place] [address]#### TRANSF ####[place] [phone] WBC (Leukocytes) 11.53 10*3/uL High 3.70-11.00 [facility] Comment on above: Performed By: #### P T, PTT, AMYL, CMP, LIPA, PHOS ####[place] [address]#### TRANSF ####[place] [phone] CT CHEST W IVCONon 8 CT CHEST [...] pelvis.IMPRESSION: Bilateral effusions with associated atelectasis versus infiltrates.Global Marketing Specialist : PSCB Transcribe Date/Time: Aug 14 2017 8:43PDictated by : AURORA ROMERO MDThis examination was interpreted and the report reviewed and electronically signed by: AURORA ROMERO MD on Aug 14 2017 8:46PM [id number] [facility] CT PANCREAS/PELVIS W IVCONon 08-14-2017 CT [...] Date/Time: Aug 14 2017 8:47PDictated by : Elisa CARSON examination was interpreted and the report reviewed and electronically signed by: AURORA ROMERO MD on Aug 15 2017 5:11PM [id number] Normal [facility] Comp Metabolic Panelon 08-14 Alanine aminotransferase (ALT) 370 U/L High 5-50 [facility] Comment on above: Performed By: #### P T, PTT, AMYL, CMP, LIPA, PHOS ####[place] [address]#### TRANSF ####[place] [address] Albumin 2.9 g/dL Low 3.5-5.0 [facility] Comment on above: Performed By: #### P T, PTT, AMYL, CMP, LIPA, PHOS ####[place] [address]#### TRANSF ####[place] [address] Alkaline phosphatase (ALP) 727 U/L High 40-150 [facility] Comment on above: Performed By: #### P T, PTT, AMYL, CMP, LIPA, PHOS ####[place] [address]#### TRANSF ####[place] [address] Anion gap 15 mmol/L Normal 9-18 [facility] Comment on above: Performed By: #### P T, PTT, AMYL, CMP, LIPA, PHOS ####[place] [address]#### TRANSF ####[place] [id number] Aspartate aminotransferase (AST) 285 U/L High 7-40 [facility] Comment on above: Performed By: #### P T, PTT, AMYL, CMP, LIPA, PHOS ####[place] [address]#### TRANSF ####[place] [address] Bilirubin (total) 2.3 mg/dL High 0.0-1.5 [facility] Comment on above: Performed By: #### P T, PTT, AMYL, CMP, LIPA, PHOS ####[place] [address]#### TRANSF ####[place] [address] Calcium 8.5 mg/dL Normal 8.5-10.5 [facility] Comment on above: Performed By: #### P T, PTT, AMYL, CMP, LIPA, PHOS ####[place] [address]#### TRANSF ####[place] [address] Chloride 96 mmol/L Low 98-110 [facility] Comment on above: Performed By: #### P T, PTT, AMYL, CMP, LIPA, PHOS ####[place] [address]#### TRANSF ####[place] [address] CO2 22 mmol/L Low 23-32 [facility] Comment on above: Performed By: #### P T, PTT, AMYL, CMP, LIPA, PHOS ####[place] [address]#### TRANSF ####[place] [address] Creatinine 0.61 mg/dL Low 0.70-1.40 [facility] Comment on above: Performed By: #### P T, PTT, AMYL, CMP, LIPA, PHOS ####[place] [phone]#### TRANSF ####[place] [address] eGFR (non-black) mL/min/{1.73_m2} Normal >60 [facility] Comment on above: Performed By: #### P T, PTT, AMYL, CMP, LIPA, PHOS ####[place] [phone]#### TRANSF ####[place] [address] Glucose mass conc 147 mg/dL High 65-100 [facility] Comment on above: Performed By: #### P T, PTT, AMYL, CMP, LIPA, PHOS ####[address]#### TRANSF ####[place] [address] Potassium molar conc 3.8 mmol/L Normal 3.5-5.0 [facility] Comment on above: Performed By: #### P T, PTT, AMYL, CMP, LIPA, PHOS ####[address]#### TRANSF ####[place] [address] Protein 6.4 g/dL Normal 6.0-8.4 [facility] Comment on above: Performed By: #### P T, PTT, AMYL, CMP, LIPA, PHOS ####[address]#### TRANSF ####[place] [address] Sodium 133 mmol/L Low 135-146 [facility] Comment on above: Performed By: #### P T, PTT, AMYL, CMP, LIPA, PHOS ####[place] [address]#### TRANSF ####[place] [address] Urea nitrogen 9 mg/dL Low 10-25 [facility] Comment on above: Performed By: #### P T, PTT, AMYL, CMP, LIPA, PHOS ####[place] [address]#### TRANSF ####[place] [address] Alanine aminotransferase (ALT) 418 U/L High 5-50 [facility] Comment on above: Performed By: #### P T, PTT, AMYL, CMP, LIPA, PHOS ####[place] [address]#### TRANSF ####[place] [address] Albumin 3.1 g/dL Low 3.5-5.0 [facility] Comment on above: Performed By: #### P T, PTT, AMYL, CMP, LIPA, PHOS ####[place] [address]#### TRANSF ####[place] [address] Alkaline phosphatase (ALP) 832 U/L High 40-150 [facility] Comment on above: Performed By: #### P T, PTT, AMYL, CMP, LIPA, PHOS ####[place] [address]#### TRANSF ####[place] [address] Anion gap 13 mmol/L Normal 9-18 [facility] Comment on above: Performed By: #### P T, PTT, AMYL, CMP, LIPA, PHOS ####[place] [address]#### TRANSF ####[place] [address] Aspartate aminotransferase (AST) 395 U/L High 7-40 [facility] Comment on above: Performed By: #### P T, PTT, AMYL, CMP, LIPA, PHOS ####[place] [address]#### TRANSF ####[place] [address] Bilirubin (total) 2.7 mg/dL High 0.0-1.5 [facility] Comment on above: Performed By: #### P T, PTT, AMYL, CMP, LIPA, PHOS ####[place] [address]#### TRANSF ####[place] [address] Calcium 8.9 mg/dL Normal 8.5-10.5 [facility] Comment on above: Performed By: #### P T, PTT, AMYL, CMP, LIPA, PHOS ####[place] [address]#### TRANSF ####[place] [address] Chloride 96 mmol/L Low 98-110 [facility] Comment on above: Performed By: #### P T, PTT, AMYL, CMP, LIPA, PHOS ####[place] [address]#### TRANSF ####[phone] CO2 23 mmol/L Normal 23-32 [facility] Comment on above: Performed By: #### P T, PTT, AMYL, CMP, LIPA, PHOS ####[place] [address]#### TRANSF ####[place] [address] Creatinine 0.63 mg/dL Low 0.70-1.40 [facility] Comment on above: Performed By: #### P T, PTT, AMYL, CMP, LIPA, PHOS ####[place] [address]#### TRANSF ####[place] [address] eGFR (non-black) mL/min/{1.73_m2} Normal >60 [facility] Comment on above: Performed By: #### P T, PTT, AMYL, CMP, LIPA, PHOS ####[place] [address]#### TRANSF ####[place] [address] Glucose mass conc 149 mg/dL High 65-100 [facility] Comment on above: Performed By: #### P T, PTT, AMYL, CMP, LIPA, PHOS ####[place] [address]#### TRANSF ####[place] [address] Potassium molar conc 4.2 mmol/L Normal 3.5-5.0 [facility] Comment on above: Performed By: #### P T, PTT, AMYL, CMP, LIPA, PHOS ####[place] [address]#### TRANSF ####[place] [address] Protein 7.0 g/dL Normal 6.0-8.4 [facility] Comment on above: Performed By: #### P T, PTT, AMYL, CMP, LIPA, PHOS ####[place] [address]#### TRANSF ####[place] [address] [place], [place] [phone] Sodium 132 mmol/L Low 135-146 [facility] Comment on above: Performed By: #### P T, PTT, AMYL, CMP, LIPA, PHOS ####[place] [address]#### TRANSF ####[place] [phone] Urea nitrogen 9 mg/dL Low 10-25 [facility] Comment on above: Performed By: #### P T, PTT, AMYL, CMP, LIPA, PHOS ####[place] [address]#### TRANSF ####[place] [phone] HISTORY PHYSICALon HISTORY PHYSICAL HNO ID: [id number] thor: Michael Cedillo) AugustinService: General SurgeryAuthor Type: PhysicianType: HANDPFiled: 08/14/2017 11:20 PMNote Text:SURGICAL SERVICES INITIAL HANDPSERVICE DATE: 08/13/2017SERVICE TIME: 11:52 PMPRIMAR CARE PHYSICIAN: No primary care provider on file.SubjectiveHISTORY OF PRESENT ILLNESS: Mr. Jackson is a 62 year old male with PMH ofCAD s/p stent x2, type 2 DM on metformin, HTN, glaucoma, PSH ofcholecystectomy ) who was transferred from [facility].Patient reports symptoms of abdominal pain and [...] from the mass and he wastransferred to [facility] for further management.Of note he has an episode of bleeding duodenal ulcer for which he receivedmultiple blood transfusion.PAST MEDICAL HISTORYDiagnosis Date- Bleeding ulcer 11/15/2016 required 5 blood transfusions- Diabetes mellitus (HCC) 2016- Glaucoma- Hypertension- Myocardial infarction 05/15/2011PAST SURGICAL HISTORYProcedure Laterality Date- ANGIOPLASTY HX 05/15/2011 2 stents s/p OR;[facility]- [facility]11/2017 [facility]No family history on file.Social HistorySubstance Use [...] by mouth once daily. Disp: Rfl:08[facility]/2017 [facility]START ON 08/14/2017] pneumococcal vaccine 23 [...] Non labored breathing on RACARDIOVASCULAR: History of OR with stents on 162 aspirinGI: Vomiting and [...] 13, 2017 : 11:52 PM PAGER/CONTACT #: [phone] NOTEI have independently seen and examined the patient today. I haveindependently reviewed all the imaging and the labs. I agree with keycomponents of the resident's note above. Care plan and decision making hasbeen discussed.Patient with obstructing duodenal [facility] months of abdominal painUnderwent lap richelle recentlySymptoms have been worse since surgeryAbd is soft and non peritonitic. RUQ tenderness noted. Drain with bileI have reviewed the CT.2 large collections and Duodenal mass. No liver or pulmonary metastasesTumor markersIR drain for abdominal fluid collection; these are likely bilomas givenCBD obstruction at the time of cholecystectomyEGD/ERCP for biliary stentNeeds TPNToms MD Froilan, MPH, FACSGeneral/Trauma/HPB SurgeryPager: [phone] Cell: [phone] 2017 Normal [facility] Lipaseon 08-14-2017 Lipase 43 U/L Normal [facility] Comment on above: Performed By: #### P T, PTT, AMYL, CMP, LIPA, PHOS ####[place] [address]#### TRANSF ####[place] [address] Lipase 58 U/L Normal [facility] Comment on above: Performed By: #### P T, PTT, AMYL, CMP, LIPA, PHOS ####[place] [phone]#### TRANSF ####[place] [address] NURSING PROGon 08-14-2017 NURSING PROG HNO ID: [id number] thor: Kiley Wong, RNService: (none)Author Type: Registered NurseType: Nursing Progress NoteFiled: 08/14/2017 6:27 PMNote Text: Nursing Progress NotePatient Name: Rocio JacksonN: [id number] Location: [place] [address]/[id number] ____Daily Note:1800-Patient reporting a significant increase in [...] tea colored fluid. Call placed to surgical garment assembly supervisor to notify, hewill be up to see the patient. Repositioned for comfort, no new orders atthis time.1810-Resident is in to see patient, orders to continue to monitor. Callplaced to CT to determine when patient will be taken down. Per vehicle glass technician thepatient is on the transport list and CT will be completed soon.is note was completed by: Kiley Wong RN [facility] NURSING PROG HNO ID: [id number] thor: Jacqueline (Rn) Jeremy, RNService: (none)Author Type: Registered NurseType: Nursing Progress NoteFiled: 08/13/2017 10:36 PMNote Text: Nursing Progress NotePatient Name: Rocio HayesN: [id number] Location: [place] [address]/[id number] ____Transfer Note:Patient transferred into room/unit PK336 at 2145. Actions taken:Dressingaround pt ROMINA drain changed AND ROMINA emptied. Will follow up with orders andcontinue to monitor.This note was completed by: Jacqueline Luna RN [facility] NUTRITIONon 08-14-2017 NUTRITION HNO ID: [id number] thor: Alise Segura) BlayneaService: Nutrition TherapyAuthor Type: Registered DietitianType: NutritionFiled: 08/14/2017 [...] 87 kgResting Metabolic Rate: 1661Estimated kilocalorie needs: 8325-2936 kilocalories determined by 25-28kcal/kgEstimated protein needs:113 - [...] lb 9.6 oz) SpO2 93% BMI 29.28 kg/c9Xjcqbg Labs 08/14/1803GLUC 147* -- 149*BUN 9* -- [...] assistance and weekends please page theGroup Pager -[phone] Normal [facility] Phosphoruson 08-14-2017 Phosphate 2.4 mg/dL Low 2.5-4.5 [facility] Comment on above: Performed By: #### P T, PTT, AMYL, CMP, LIPA, PHOS ####[facility] [place], [place] [phone]#### TRANSF ####[facility] [place], [place] [phone] Phosphate 2.3 mg/dL Low 2.5-4.5 [facility] Comment on above: Performed By: #### P T, PTT, AMYL, CMP, LIPA, PHOS ####[place] [address]#### TRANSF ####[place] [phone] Phosphate 2.3 mg/dL Low 2.5-4.5 [facility] Comment on above: Performed By: #### P T, PTT, AMYL, CMP, LIPA, PHOS ####[place] [address]#### TRANSF ####[place] [phone] Prealbuminon 08-14-2017 Prealbumin 7 mg/dL Low 17-36 [facility] Comment on above: Performed By: #### P T, PTT, AMYL, CMP, LIPA, PHOS ####[place] [address]#### TRANSF ####[phone] Protimeon 08-14-2017 INR Coag RelTime (Bld) 1.5 {INR} High 0.9-1.3 [facility] Comment on above: Result Comment: Tayler min K Antagonist (VKA) Therapeutic Range: INR 2 to 3 (Target INR of 2.5)Note: For patients treated with VKA drugs, such as warfarin, the [place] [employer] 2012 Guideline recommends [...] al. Chest 2012, 141:7S-47SFelice CENTENO, et al. [facility] 2017, 70: 252-289 Performed By: #### P T, PTT, AMYL, CMP, LIPA, PHOS ####[place] [phone]#### TRANSF ####[address] [phone] PT Sec 14.9 sec High 9.7-13.0 [facility] Comment on above: Performed By: #### P T, PTT, AMYL, CMP, LIPA, PHOS ####[place] [phone]#### TRANSF ####[address] [phone] INR Coag RelTime (Bld) 1.5 {INR} High 0.9-1.3 [facility] Comment on above: Result Comment: Tayler min K Antagonist (VKA) Therapeutic Range: INR 2 to 3 (Target INR of 2.5)Note: For patients treated with VKA drugs, such as warfarin, the [place] [employer] 2012 Guideline recommends [...] of 2.5 to 3.5 (target INR of 3).tammie Gordon. Chest 2012, 141:7S-47SFelice CENTENO, et al. JAC 2017, 70: 252-289 Performed By: #### P T, PTT, AMYL, CMP, LIPA, PHOS ####[place] [phone]#### TRANSF ####[place] [phone] PT Sec 14.7 sec High 9.7-13.0 [employer] Comment on above: Performed By: #### P T, PTT, AMYL, CMP, LIPA, PHOS ####[address]#### TRANSF ####[place] [phone] Transferrinon 08-14-2017 Transferrin 218 mg/dL Normal 200-360 [employer] Comment on above: Performed By: #### P T, PTT, AMYL, CMP, LIPA, PHOS ####[place] [id number]#### TRANSF ####[place] [phone] Type and Screenon 08-14-2017 ABO/RH(D) Positive Normal [employer] Comment on above: Performed By: #### P T, PTT, AMYL, CMP, LIPA, PHOS ####[place] [phone]#### TRANSF ####[place] [phone] Antibody Screen Negative Normal [employer] Comment on above: Performed By: #### P T, PTT, AMYL, CMP, LIPA, PHOS ####[place] [phone]#### TRANSF ####[place] [phone] XR ABDOMEN 1V SUPINEon 08-14 XR ABDOMEN [...] excluded from view.IMPRESSION:NG TUBE EXTENDS TO THE STOMACH.Global Marketing Specialist: [facility] MANCHESTERShefali Transcribe Date/Time: Aug 14 2017 7:37ADictated by : SUSAN CORNEJO MDThis examination was interpreted and the report reviewed and electronically signed by: SUSAN CORNEJO MD on Aug 14 2017 7:38AM [id number] [facility] XR CHEST 1V FRONTAL PORTon 0 [...] Partially obscured.Other:IMPRESSION:Lo w lung volumes with bibasilar atelectasis.Global Marketing Specialist : PSCB Transcribe Date/Time: Aug 14 2017 7:38ADictated by : SUSAN CORNEJO MDThis examination was interpreted and the report reviewed and electronically signed by: SUSAN CORNEJO MD on Aug 14 2017 7:40AM [id number] [facility] HOSPon 08-13-2017 HOSP Patient:Jason Jackson RN: [...] LR infusion (D5-LR)heparin 5,000 Units injectionphenol 1 Candor (CHLORASEPTIC)metoprolol tartrate (short acting) 25 mg tab(s) [...] 3.5HEMA* 27.7 % 08/19/2017 51.0 39.0Progress Notes ( PK3C):Jacqueline Luna, RN, RN 08/13/2017 10:36 PM Signed Nursing Progress NotePatient Name: Rocio JacksonPETRONA: [id number] Location: [address]/UF-ER2C-79 ____Transfer Note:Patient transferred into room/unit PK336 at [...] DM on metformin, HTN, glaucoma, PSH of pesvsouokyomosr64/13/2018) who was transferred from OSH.Patient reports symptoms [...] from the mass and he was transferred [facility] for further management.Of note he has an episode of bleeding duodenal ulcer for which he receivedmultiple blood transfusion.PAST MEDICAL HISTORYDiagnosis Date- Bleeding ulcer 11/15/2016 required 5 blood transfusions- Diabetes mellitus (HCC) 2017- Glaucoma- Hypertension- Myocardial infarction 05/15/2011PAST SURGICAL HISTORYProcedure Laterality Date- ANGIOPLASTY HX 05/15/2011 2 stents s/p OR;[facility]- CHOLECYSTECTOMY 08/11/2017 [facility] family history on file.Social HistorySubstance Use Topics- [...] by mouth once daily. Disp: Rfl: [facility]2017[facility] medications:[START ON 08/14/2017] pneumococcal vaccine 23 [...] Non labored breathing on RACARDIOVASCULAR: History of OR with stents on 162 aspirinGI: Vomiting and [...] imaging results.CBC, Coags, BMP, Mg, PhosRecent Labs 08/14/241863SCI 11.53*HB 10.7*HCT 31.7*PLT 285INR 1.5*APTT 30.2NA 132*K 4.2CHLOR 96*CO2 23BUN 9*CREAT 0.63*GLUC 149*CA 8.9P 2.3*Liver Function, Amylase, AND LipaseRecent Labs 08/14/1799272879NKFDM 7.0ALB 3.1*ALT 418*AST 395*ALKPHOS 832*TBILI 2.7*AMYLASE 59LIPASE [...] 13, 2017 : 11:52 PM PAGER/CONTACT #: [phone] NOTEI have independently seen and examined the patient today. I have independentlyreviewed all the imaging and the labs. I agree with figueroa components of theresident's note above. Care plan and decision making has been discussed.Patient with obstructing du[facility] of abdominal painUnderwent lap richelle recentlySymptoms have been worse since surgeryAbd is soft and non peritonitic. RUQ tenderness noted. Drain with bileI have reviewed the CT.2 large collections and Duodenal mass. No liver or pulmonary metastasesTumor markersIR drain for abdominal fluid collection; these are likely bilomas given CBDobstruction at the time of cholecystectomyEGD/ERCP for biliary stentNeeds TPNTevi Jolley MD, MPH, FACSGeneral/Trauma/HPB SurgeryPager: [phone] Cell: [phone] 2017Previous VersionDenise Graham RT 08/14/2017 1:32 AM Signed Radiology Service Progress NotePATIENT NAME: Rocio JacksonMRN: [id number] OF SERVICE: August 14, 2017TIME: 1:32 AMPATIENT [...] 87 kgResting Metabolic Rate: 1661Estimated kilocalorie needs: 9011-7909 kilocalories determined by 25-28 kcal/kgEstimated protein needs:113 [...] lb 9.6 oz) SpO2 93% BMI 29.28 kg/d4Zdutmh Labs 08/14/1803GLUC 147* -- 149*BUN 9* -- [...] RD, LD PATIENT NAME: Rocio FrischDATE: August 14, 2017 : 2:31 PM PAGER: For further assistance and weekends please page the GroupPager -[phone] Stewart, RN, RN 08/14/2017 6:27 PM Signed Nursing Progress NotePatient Name: Rocio Boudreaux: [id number] Location: [place] [address]/UO-UY1G-21 ____Daily Note:1800-Patient reporting a significant increase in [...] dark tea coloredfluid. Call placed to surgical garment assembly supervisor to notify, he will be up to see thepatient. Repositioned for comfort, no new orders at this time.1809-Resident is in to see patient, orders to continue to monitor. Call placedto CT to determine when patient will be taken down. Per vehicle glass technician the patient israel the transport list and CT will be completed soon.is note was completed by: Radha Pacheco 08/14/2017 7:17 PM Signed Radiology Service Progress NotePATIENT NAME: Rocio Boudreaux: [id number] OF SERVICE: August 14, 2017TIME: 7:16 PMPATIENT IDENTITY VERIFICATION COMPLETED USING TWO (2) METHODS: Patientconfirmed name verbally and ID band matches..PATIENT GENDER DATA: MalePATIENT RELEVANT IMPLANT DATA REVIEWED: Not ApplicableCONTRAST INDUCED NEPHROPATHY RISK FACTORS: Patient age > 60 yearsCREATININE:CreatinineDa te Value Ref Range Ryytpi1708/14/2017 0.61 (L) 0.70 - 1.40 mg/dL Final08/14/2017 0.63 (L) 0.70 - 1.40 mg/dL Final eGFR-All Other RacesDate Value Ref Range Rerewc1708/14/2017 >60 >60 . Final eGFR- AmericanDate Value Ref Range Lqthtv8608/14/2017 >60 >60 Final P.O.C.T. RESULTS: POC done: [...] plan of care and management with the PA/TAKE DOWN SORTER. I reviewed thePA/TAKE DOWN SORTER's note and agree with the documented findings and plan of care.? ?Thank you for allowing us to participate in the care of this patient. Pleasecall with any questions or concerns.Lourdes Ferrari MDCantua Creek GastroenterologyPager [phone] --------CONSULT: [facility] Gastroenterology SERVICESERVICE DATE: 08/15/2017SERVICE TIME: 9:04 AMREASON FOR CONSULT: ERCPREQUESTING PHYSICIAN: Dr. Michael [facility]leyASH[facility] PHYSICIAN: No primary care provider on file.SubjectiveMr. Jackson is a 62 year old male with PMH of CAD s/p stent x2, type 2 DM onmetformin, HTN, glaucoma, PSH of cholecystectomy (08/11/2017, ERCP 08/13/17) whowas transferred from [facility]SH for management [facility] due to ulcerated mass possibleadenocarcinoma.The patient states that he had intermittent RUQ abdominal pain for sometime and became acutely worse. He subsequently underwent cholecystectomy [facility]. He had persistent pain and elevated LFT's following the richelle andunderwent ERCP on 08/13/17 which showed a duodenal mass and was biopsied. [facility] and [facility]. Following admissionpatient [...] 2.3, AST 285, ALT 370, and new hfbgkuodnwls48.53-->16.33.No t currently on antibiotics.FUNCTIONAL STATUS: IndependentPAST MEDICAL HISTORYDiagnosis Date- Bleeding ulcer 11/15/2016 required 5 blood transfusions- Diabetes mellitus (HCC) 2016- Glaucoma- Hypertension- Myocardial infarction 05/15/2011PAST SURGICAL HISTORYProcedure Laterality Date- ANGIOPLASTY HX 05/15/2011 2 stents s/p OR;[facility]- [facility]CY[facility]Y 08[facility]11/2017 [facility]No family history on file.Social HistorySubstance Use [...] by mouth once daily. Disp: Rfl: 08/10/2017at [facility]00[facility] medications:oxyCODONE IR 5 mg tab(s) (ROXICODONE) [...] control as per primary service-Maintain NPO-IV Cipro fellmongery worker for ERCP (ordered)D/w Dr. Nava and Dr. AquinoattSIGNATURE: Gissell Serrato CNP PATIENT NAME: Rocio TorresdonnyDATE: August 15, 2017 : 9:04 AM PAGER: [phone] M Beskid, RN, RN 08/15/2017 6:48 PM Addendum Nursing Progress NotePatient Name: Rocio TorresdonnyMRN: [id number] [facility]RX-XL2B-05 ____Daily Note:Pt phos level 2.2 - text page to SROC to make aware. Pt resting inbed and is alert and oriented times 3. Pt rating pain 7/10 in abdomen andgeneralized in whole area. Medicated w/ PRN pain medication. Lungs clear andabdomen distended and tender. Pt jaundiced. IV fluids infusing per MAR.ENcouraged use of incentive spirometer. Pt not able [...] cough. Safetymaintained.This note was completed by: Saima Richardson RNPrejaden Barber RD, LD 08/15/2017 1:17 PM AddendumNUTRITION SUPPORT TEAMTOPIC: NUTRITION SUPPORT PROGRESS NOTEPATIENT NAME: Rocio Boudreaux: [id number] OF : 1955DATE: 08/15/2017Nutritional Status: SEVERE PROTEIN [...] made once cental line available.IF line placed use start up of 510 dextrose kcal , 100 ml/hr continuous, 130 gms protein,540 fat kcalStandard electrolytes or based on lab valuesCalcium gluconate 10 mEqMagnesium sulfate 20 mEqSodium phosphate 30 mMolPotassium acetate 100 mEqSodium chloride 50 mEqSodium acetate 15 mEqMVI with mineral and trace elements Dosing Weight: 87 kgResting Metabolic Rate: 1661Estimated kilocalorie needs: 1189-7911 kilocalories determined by 25-28 kcal/kgEstimated protein needs:113 [...] (192 lb 9.6 oz) SpO2 92% BMI29.28 kg/f0Lteshvc Weight: Weight: 87.4 kg (192 lb 9.6 [...] -- --CA 8.7 -- 8.5 8.9Recent Labs 075755ZLRTOL 7*Accuchecks:Glucose, Point of Care (mg/dL)Date Value08/15/2017 141 (A)08/15/2017 154 (A)08/15/2017 138 (A)08/14/2017 148 (A)Alana Barber RD, LDPager: For further assistance and weekends please page the Group Tgpbe-[phone] :3Previous Constance Patel MD 08/15/2017 2:07 PM [...] Date- ANGIOPLASTY HX 05/15/2011 2 stents s/p OR;[facility]- [facility]CYST[facility]OMY 08/11/2017 [facility] medications as of 08/13/17 [...] 20 mg by mouth twice daily. 08/11/2017 [id number] Yesnitroglycerin sublingual (NITROSTAT) 0.4 mg SL tablet [...] August 15, 2017 : 2:05 PM PAGER: [phone] Rivero RN, RN 08/15/2017 3:13 PM SignedAMBULATORY [...] instructionPATIENT / FAMILY RESPONSE: Verbalizes understanding of: HTAY-KGHBAAGFKINIVXDPJRGKH-S orrect actions to take to reduce post procedure complicationsPRE-PROCEDURE INSTRUCTIONS-Correct action to take to follow pre-procedureinstructionsFOL LOW-UP PLAN: Complete - No need for follow-upSUPPLEMENTAL MATERIAL: Title of written material: Abcess drain and SedationinformationREFERRAL (RECOMMENDATION): NoneElectronically Signed By: Dhara Rivero RN In Department: [facility]3Sean Patel MD 08/15/2017 2:46 PM SignedRadiology [...] 15, 2017 : 2:45 PM PAGER/CONTACT #: [phone] Win Ct 08/15/2017 2:49 PM Signed Radiology Service Progress NotePATIENT NAME: Rocio JacksonMRN: [id number] OF SERVICE: August 15, 2017TIME: 2:48 PMPATIENT IDENTITY VERIFICATION COMPLETED USING TWO (2) METHODS: Patientconfirmed name verbally and ID band matches..PATIENT GENDER DATA: MalePATIENT RELEVANT IMPLANT DATA REVIEWED: Not ApplicableRADIOLOGY DEPARTMENT: CT; Exam(s) Completed: ABSCESS DRAINAGEPERIPHERAL IV DATA: Not applicableSIGNED BY: Jennifer Win [facility] 2017 2:48 PMAndgiuseppe Duffy MD 08/15/2017 5:53 PM SignedSurgery Att:Pt [...] MDFeuary 2017 5:53 PM(late entry)Kael Hernandez MD, 08/15/2017 7:29 PM SignedGENERAL SURGERY PROGRESS NOTENAME: Rocio JacksonMarisa: [id number] 2017 7:20 PMASSESSMENT AND PLAN:Mr. Jackson is [...] tachycardic during the day. EKG revealed A-fib. Oqmujeww4h940 NSB, responded to bolus.IR drained 110cc dark serous fluid on 08/15- Continue pain control regimen- FEN/GI: NPO diet; mIVF- Abx: Cipro- Prophylaxis: DVT prophylaxis, IS, OOB, ambulate- Telemetry- PICC line placement- Nutrition consult for TPN- Dispo: ARLINE HERNANDEZ MDThomasville Regional Medical Center SurgeryPager: [phone]*On weekends or nights (after 1800) please contact the surgery fellmongery worker pager.*SUBJECTIVE: No acute issues overnight and during the day. Resting comfortablyin bed.OBJECTIVE:BP 109/58 Pulse 78 Temp 36.3 ?C (97.4 ?F) (Oral) Resp 18 Ht 172.7 cm (5'8 ) Wt 87.4 kg (192 lb 9.6 oz) SpO2 94% BMI 29.28 kg/z6MBBSCHQ: alert, NADLUNGS: breathing comfortablyCARDIAC: irregularABDOMEN: mildly TTP in upper abd, mildly distended, softEXTREMITIES: warm and well perfusedDRAINS/LINES: bilious drainage from JPDate 08/14/17 1500 - 08/15/17 0659 08/15/17 0700 - 08/16/17 0659Shift 6625-8339 8429-8145 24 Hour Total 4570-1546 7831-9019 1003-6552 24 HourTotalINTAKE PO 60 60 30 30 PO 60 60 30 30 IV 2018 2018 956 130 1378 NS 0.9% 2018 2018 986 869 1997 Irrigants 20 40 30 30 Irrigant/Flush Amount In (GI Feed/Drain 08/14/17 0109 Nasogastric Right Naris18 Fr) 20 40 30 30 Shift Total 2099 2119 744 665 1409OUTPUT Urine 575 1125 425 425 Void (ml) 575 1125 425 425 Tubes 117 449 6276 330 445 775 Drain/Tube Output (Drain/Tube [facility] Right LowerQuadrant Abdomen) 260 30 370 140 70 210 Drain/Tube Output (Drain/Tube 08/15/17 1530 Assessment Right Upper Abdomen)275 275 Output (GI Feed/Drain 08/14/17 0109 Nasogastric Right Naris 18 Fr) 923 7919816 190 100 290 # of BMs Number of BMs 0 x 0 x 0 x 0 x Shift Total 660 1265 2555 330 870 1200Weight (kg) 87.4 87.4 87.4 87.4 87.4 87.4 87.4LABORATORY AND IMAGING:CBCRecent Labs 08/14/1799WBC 16.33* 11.53*HB 11.1* 10.7*HCT 33.4* 31.7*PLT 328 285Metabolic PanelRecent Labs 02/17/626455 08/14/180308/14/179939NA 136 -- 133* -- 132*K 3.5 -- [...] Addendum Nursing Progress NotePatient Name: Rocio Boudreaux: [id number] Location: [place] [address]/ZE-VN3G-99 ____Daily Note:Late entry 2105 08/15 Labs drawn for start of heparin drip. INR 2.0Order to notify team when INR equal to or greater than 2.0.0350: Team notified that INR 2.0. Order to hold heparin drip until morning labsback with INR results. Will continue to monitor.0428: Text page to surgery for bladder scan of 665 ml and change in NG colorfrom bile to brownish anp1030: SROC up to see and assess pt. Continue to monitor bladder as pt is havingno symptoms of discomfort at this time. Wait to start heparin drip until Amlabs. Continue to monitor NG output.This note was completed by: Kaye May RN, RN 08/16/2017 6:50 PM Signed Nursing Progress NotePatient Name: Rocio Boudreaux: [id number] Location: [place] [address]/PA-NG5P-61 ____Daily Note:0730: SROC alpha paged re: PT/INR result 2.0 from morning lab work, heparin gttorder remains active, requesting clarification. A-fib on tube room cashier, [id number]'s.0830: Call back recv'd, okay to start heparin gtt per nomogram per surgicalresident Maikol. PICC team @ bedside, will start heparin gtt onceprocedure is completed. New orders recv'd, POC includes: cardiology consult forA-fib, IVF fluid change, K phos replacement, and to hold heparin gtt @ 0200Mond08/17 for procedure. Pt remains NPO x meds, NGT to LCS maintained,draining brown fluid.0945: Heparin gtt initiated @ 1000 units/hr per EMAR, order recv'd for vitaminK, paged SROC to clarify, Juan Alberto Lassiter states to give vitamin K with heparingtt. Pt A+Ox3, flat affect. Skin jaundiced. Medicated for c/o upper ABD pain.Lap sites x 3 REAL ESTATE VALUER with skin glue, no drainage.1245: Dr Duffy rounding (covering for Dr Jolley) and discussed RN concernsfor INR 2.0 with heparin gtt, and vitamin K order. Per Dr Duffy, stop heparingtt and admin vitamin K. Spoke with TERRAZZO LAYER for GI service, repeat PT/INR orderedfor 1200 [...] assisted up to chair, bath provided. Dr Baumed, updated him on POC, states will possibly [...] 16, 2017 : 8:03 AM PAGER/CONTACT #: [phone] Song, RN, RN 08/16/2017 8:34 AM SignedPATIENT EDUCATION TOPIC: PROCEDURE / SURGERY: Procedure/Surgery: PICCinsertion under US guidancePATIENT NAME: Rocio TorresdonnyMRN: [id number] LOCATION: [place] [address]/YJ-KP7G-23PQIBAALH S TO LEARNCOGNITIVE ABILITY: Alert and orientedMOTIVATION TO LEARN: EagerInterestedFAMILY SUPPORT: High - Very involved in pt careINSTRUCTION PROVIDED TO: Patient and Family memberPATIENT LEARNS BEST BY: Individual InstructionVerbal InstructionFACTORS AFFECTING LEARNING: NonePHYSICAL LIMITATIONS AFFECTING LEARNING: NoneLEARNING RESPONSEDIAGNOSIS: ADULT: Duodenal obstructionPATIENT/FAMILY RESPONSE: Verbalizes understanding of: ZLAY-JTJNEVWBCHTWSEPDXJXSD-K orrect actions to take to reduce post [...] YESSign Out Discussion: Shayan Shaffer RNCATHETER PLACEMENTBrand: Cholkettygard Lot: [id number] of Lumens: 2Type of PICC: Power Injectable [...] NoneCOMPLICATIONS: NonePatient Education Materials: Placed in chartThe [facility] Central Line Insertion checklist, attached to the CentralLine-Associated Bloodstream Infection Prevention Policy, was utilized duringthis procedure.QUESTIONS or PROBLEMS: Page [phone] weekendSIGNATURE: Luis Shaffer RN PATIENT NAME: Rocio JacksonDATE: August 16, 2017 : 8:35 AM PAGER/CONTACT PHONE:Khadar Duffy MD 08/16/2017 1:47 PM Addendum SURGERY INPATIENT PROGRESS NOTESName: Rocio JacksonMRN: [id number] and Plan:62 year old male with near-obstructing [...] lb 9.6 oz) SpO2 92% BMI 29.28 kg/g7Lemspe/Output Summary (Last 24 hours) at 08/16/17 0835Last data filed at 08/16/17 0631 Gross per 24 hourIntake 3079 mlOutput 2640 mlNet 439 mlGeneral Appearance: NADAbdomen: soft, non-tender, mild distention. Drains in place, bilious output.Akbar Lassiter MDGENEGENESIS [facility]ITAL SURGERY PGY-48:35 AM08/16/2017*A review of daily [...] results tomorrow.Khadar Duffy MDFebruary 2017 1:47 PMPrevious VersionGissell Serrato CNP 08/16/2017 12:58 PM SignedIn anticipation of ERCP tomorrow:INR notedPatient will need Vitamin K today and stat INR one hour prior to procedure(ordered)Stop Heparin drip 6 hrs prior to procedure as per surgeryDiscussed with Dr. Candelaria you for allowing us to participate in the care of Mr. Jackson. Please callwith any questions or concerns.Gissell Serrato CNPNortst. james hospital and clinic GastroenterologyOffice: Cell: Etqhtz Kenny Ferrari MD 08/16/2017 6:45 PM [facility] HospitalendLife[facility] Gastro[facility] Progress NoteSERVICE DATE: August 16, 2017SUBJECTIVENo abd pain, n/v, f/c. Afib overnight. Passing gas. No BM.OBJECTIVEMEDICATIONSCurre rhode island hospital medications:potassium phosphate 30 mmol in NaCl [...] INTRAVENOUS q 2 H PRNPE 421 753 157BP: 108/64 117/60 113/66Pulse: 92 (!) 128 92 96Resp: 18 17 16Temp: 36.9 ?C (98.4 ?F) 36.7 ?C (98 ?F) 37.4 ?C (99.3 ?F)TempSrc: Oral Oral OralSpO2: 92% 92% 95%Weight:Height:Body mass index is 29.28 kg/(m2).GENERAL: NAD, MZQa9XYNHP: PERRLA, EOMI, normal OPCV: RRR, normal S1, S2, no mrgABDOMEN: Soft, non-tender, non-distended, normoactive BS, ROMINA drain w bileEXT: wwp, no cceNeuro: grossly nonfocalLABSreviewedIMAGINGr eviewedASSESSMENT AND PLANMr. Renetta is a 62 year old male with [...] with any further questions or concerns.Lourdes Ferrari MDCantua Creek GastroenterologyPg#: [phone]: Lourdes Ferrari MD PATIENT NAME: Rocio Sibley: August 16, 2017 : 2:42 PM PAGER: [phone] VersionJessee Mayorga MD 08/16/2017 4:39 PM AddendumCONSULT: CARDIOLOGY [...] 12.5 BIDPlan:Switch to metoprolol 25 TID.Monitor.CAD. Remote OR, PCI in 2013.No angina.Duodenal mass and obstructive jaundices/p perc drain placement.-plan is for ERCP with possible duodenal stent placement tomorrow.[facility] STAFF PHYSICIAN NOTE OF PERSONAL INVOLVEMENT IN [...] case andmanagement of the patient's care.STAFF PHYSICIAN: GAEL MccallumATE OF SERVICE: August 16, 2017TIME OF SERVICE: 4:36 PMCHIEF COMPLAINT: abdominal painRocio Jackson is a 62 year old male, he lives in [facility]. Followed by aCardiologist in [place].History of CAD, OR s/p stent x2 in 2013, DM II, hypertension, glaucoma, recentcholecystectomy 08/11/2017, ERCP 08/13/17-showed multiple fluid collections andpartial duodenal obstruction due to ulcerated mass, possible adenocarcinoma.Subsequently transferred from [facility].-Worsening abdomina pain, leukocytosis. Followed by general [...] Date- ANGIOPLASTY HX 05/15/2011 2 stents s/p OR;[facility]- CHOLECYSTECTOMY 08/11/2017 [facility]- PICC LINE INSERT/CONSULT 08/16/2017Past Family History:non [...] pulses present.CBC, Coags, BMP, Mg, PhosRecent Labs 08/15/182016/760625 02/16/008408EYP 11.42* 12.79* 16.33* -- -- 11.53*HB 9.8* [...] NOTES - SURGICAL SERVICESPATIENT NAME: Rocio JacksonMRN: [id number] HISTORY OF PRESENT ILLNESS:No acute events overnight. [...] 87 kgResting Metabolic Rate: 1661Estimated kilocalorie needs: 4927-2932 kilocalories determined by 25-28 kcal/kgEstimated protein needs:113 - 130 grams determined by 1.3-1.5 g/kg DosingweightEstimated fluid needs: 2200 - 2400 milliliters based on 1 mL per kcalAdmission Weight: 87.4 kg (192 lb 9.6 oz)Current Weight: 87.4 kg (192 lb 9.6 oz)Body mass index is 29.28 kg/(m2). overweightALLERGIESNo Known AllergiesCurrent Facility-Administered Medications:phenol 1 Candor (CHLORASEPTIC) 1 Candor MUCOUS MEMBRANE (TOPICAL MOUTH AND THROAT) q2 [...] mg INTRAVENOUS q 2 H PRNIntake/Output 08/13/17 07 - 08/14/17 0659 08/14/17 07 - 08/15/17 0659 08/15/17 07 -08/16/17 0659 08/16/17 07 - 08/17/17 0659 Intake [...] assistance and weekends please page the GroupPager [phone] R Bolla, MD 08/18/2017 10:29 PM SignedPROGRESS NOTE CARDIOLOGY SERVICESERVICE DATE: August 17, 2017SERVICE TIME: 12:48 PMASSESSMENT/PLANActive Problems:Atrial fibrillation. Persistent AF, ventricular rates +/- 100Heparin infusion is off. Inr was elevated, received vitamin K prior toprocedure. Today 1.0.s/p ERCP yesterdayPlan:Continue metoprolol.Spoke to surgical TAKE DOWN SORTER Boubacar Espinoza. ->kimberley is for PTHC tomorrow.Will [...] edema.PULSES: Peripheral pulses present.MEDICATIONS:Current Facility-Administered Medications:phenol 1 Candor (CHLORASEPTIC) 1 Candor MUCOUS MEMBRANE (TOPICAL MOUTH AND THROAT) q2 [...] Prior to Discharge: To Be DeterminedHealth Insurance[facility] Arrangement: HomeLives With: 2 adult childrenFinancial Resources: N/APrimary Contact:Extended Emergency Contact InformationPrimary Emergency Contact: Owen Muller: [place], [place] [address]Opqs Clchetej: SiblingSupportive: YesOther Important Patient Contacts: NoneCAREGIVER ASSESSMENT:Caregiver [...] days? NoHas the Patient Been in a Assisted Facility in the Past 30 days? NoFREEDOM OF CHOICE EXPLAINED:N/RUDY COMMUNICATION:[facility] CM met with pt at bedside for [...] arise.SIGNATURE: Alexandrea Tomas RN PATIENT NAME: Rocio FrischDATE: August 17, 2017 : 2:07 PM PAGER/CONTACT #: [phone] Zelin, MD 08/17/2017 3:21 PM SignedREGIONAL ANESTHESIOLOGY DAY OF SURGERY NOTEPATIENT NAME: Rocio Boudreaux: [id number]: 1955Procedure(s) (LRB):ERCP (N/A)Surgeon(s):Srinath NavaEstimated body mass index [...] Date- ANGIOPLASTY HX 05/15/2011 2 stents s/p OR;[facility]- CHOLECYSTECTOMY 08/11/2017 [facility]- PICC LINE INSERT/CONSULT 08/16/2017No family history on file.Social History:Social HistorySubstance Use Topics- Smoking status: Former Smoker Types: Cigarettes Quit date: 2010- Smokeless tobacco: Never Used- Alcohol use 1.5 oz/week 1 Cans of Beer (12oz) per week Comment: occasional beerNo current facility-administered medications on file prior to encounter.No current outpatient prescriptions on file prior to encounter.Inpatient medications reviewed in [employer].I have interviewed and examined the patient. I [...] notes..SIGNATURE: Srinath Nava MD PATIENT NAME: Rocio VizcarraTE: August 17, 2017 : 3:20 PM PAGER:Srinath [...] SignedPOST ANESTHESIA EVALUATION NOTESERVICE DATE: 08/17/2017SERVICE TIME: 1DOB: 1955Vitals: 08/17/1807Temp: 37 ?C (98.6 ?F) 37.1 [...] NoneOther Remarks:SIGNATURE: Reba Valle MD PATIENT NAME: Rcoio JacksonDATE: August 17, 2017 : 5:41 PM PAGER/CONTACT #:Khadar Duffy MD 08/18/2017 6:11 PM AddendumPROGRESS NOTES - SURGICAL SERVICESPATIENT NAME: Rocio Boudreaux: [id number] HISTORY OF PRESENT ILLNESS:No acute events overnight. [...] surgical care: EVERETT RODRIGUEZ MD (Res)General SurgeryPager: [phone]*On weekends or nights (after 1800) please contact the surgery fellmongery worker pager.*Attending: ERCP results noted. Unable to cannulate [...] (HumaLOG) SUBCUTANEOUS w MEALS AND HSphenol 1 Candor (CHLORASEPTIC) 1 Candor MUCOUS MEMBRANE (TOPICAL MOUTH AND THROAT) q2 [...] tube placement for feeding-continue to followJudith Weber [facility] GastroenterologyThank you for allowing us to participate in the care of this patient. Pleasecall with questions or concerns.SIGNATURE: Linda Avalos CNP PATIENT NAME: Rocio VizcarraTE: August 18, 2017 : 1:20 PM PAGER: [phone] Barsa, RD, LD 08/18/2017 1:39 PM SignedNUTRITION THERAPY PROGRESS NOTESERVICE DATE: 08/18/2017SERVICE TIME: 1:24 PMRECOMMENDED DIAGNOSIS: SEVERE PROTEIN-CALORIE MALNUTRITION per RegisteredDietitian on 08/14NUTRITION CARE PLANIntervention:Diet NPOAdvance to clearsMonitor and Evaluation:Goal: Meet >75% of estimated needsMonitor fluid/electrolyte balanceMonitor labs, I/Os, vital signs, weightDischarge Nutrition Recommendations:To be kaohuzegae27 year old male with a history notable [...] (HumaLOG) SUBCUTANEOUS w MEALS AND HSphenol 1 Candor (CHLORASEPTIC) 1 Candor MUCOUS MEMBRANE (TOPICAL MOUTH AND THROAT) q2 [...] assistance and weekends please page the GroupPager -[phone] Berardi, RN, RN 08/18/2017 2:30 PM SignedMULTIDISCIPLINARY ROUNDSSERVICE DATE: 08/18/2017 ADMISSION DATE: 08/13/2017SERVICE TIME: 2:27 PM ANTICIPATED D/C DATE: 1-3 daysProblem List:ACTIVE PROBLEM LISTDuodenal ObstructionSevere Protein-Calorie Malnutrition (Hcc)Attendees Present at Rounds:Pit Worker Power Shovel: Roderick Nurse: Laura Discussed on Rounds:Discharge NeedsPlan of Care following for potential skilled dc needs.Anticipated Discharge [...] August 18, 2017 : 2:27 PM CSN: [id number] Webster RN, RN 08/19/2017 3:24 AM Signed Nursing Progress NotePatient Name: Rocio Boudreaux: [id number] Location: [place] [address] ____ Pt with mild abd pain of 3 or less tonight. Tylenol controlling. Pt aware ifneeded may have pain pills. Accordian drain flushed at 2100 per order forpositive return of sterile NS and brown liquid.This note was completed by: Vipul Das RN, RN 08/19/2017 11:47 AM SignedPATIENT EDUCATION TOPIC: PROCEDURE / SURGERY: Procedure/Surgery: PTHCPATIENT NAME: Rocio Boudreaux: [id number] LOCATION: [place] [address]READINES S TO LEARNCOGNITIVE ABILITY: Alert and orientedMOTIVATION TO LEARN: EagerInterestedFAMILY SUPPORT: Unable to assess - Family not presentINSTRUCTION PROVIDED TO: PatientPATIENT LEARNS BEST BY: Individual InstructionWritten Instruction - Hand-outsVerbal InstructionFACTORS AFFECTING LEARNING: NonePHYSICAL LIMITATIONS AFFECTING LEARNING: NoneLEARNING RESPONSEDIAGNOSIS: ADULT: Duodenal massPATIENT/FAMILY RESPONSE: Verbalizes understanding of: [id number]-B orrect actions to take to reduce post [...] no rubs, murmurs, or gallopsProvisional Diagnosis/Treatment Plan: [facility] wGeneral AnesthesiaThis HANDP can be found in the attached.SIGNATURE: Vanessa Garcia MD PATIENT NAME: Rocio JacksonDATE: August 19, 2017 : 12:47 PM PAGER: [phone] CARLOS Lopez, LD 08/19/2017 2:22 PM SignedNUTRITION [...] 87 kgResting Metabolic Rate: 1661Estimated kilocalorie needs: 0130-7785 kilocalories determined by 25-28 kcal/kgEstimated protein needs:113 [...] kg (192 lb) SpO2 98% BMI 29.19 kg/n1Csbkdl Labs GLUC 144*BUN 7*CREAT 0.58*NA 142K 3.4*CHLOR [...] 5,000 Units SUBCUTANEOUS q 8 Hphenol 1 Candor (CHLORASEPTIC) 1 Candor MUCOUS MEMBRANE (TOPICAL MOUTH AND THROAT) q2 [...] 0659 08/16/17 0700 - 08/17/17 0659 08/17/17 07 -08/18/17 0659 08/18/17 0700 - 08/19/17 0659 [...] assistance and weekends please page the GroupPager -[phone] Tritle, MD 08/19/2017 2:57 PM SignedBRIEF OPERATIVE / PROCEDURE NOTESurgery/Procedure Date: 08/19/17Incision/Procedure Start Time:Incision Close/Procedure End Time:Surgeon(s)/Proceduralis t(s) and Slab Polisher(s):Dusty Garcia - PrimaryProcedure(s): R PTHC and Int/Ext biliary drainAnesthesia: GeneralFindings: Mildly dilated IH ducts. NO filling defects. Severe D2-3 strictureEstimated Blood Loss: MinimalSpecimens: NoneComplications: NonePre-Op/Pre-Procedure Diagnosis: Duodenal massPost-Op/Post-Procedure Diagnosis: SameSIGNATURE: Vanessa Garcia MD PATIENT NAME: Rocio Sibley: August 19, 2017 : 2:56 PM PAGER/CONTACT #: [employer] Vital Signs Date Time Vital Sign Value Performing Clinician Facility 05-06-2024 13:59-0500 Body height 166.37 cm [facility] 05-06-2024 13:59-0500 Body mass index (BMI) [Ratio] 22.7 kg/m2 [facility] 05-06-2024 13:59-0500 Body weight 63 kg [facility] 05-06-2024 13:59-0500 Diastolic blood pressure 66 mm[Hg] [facility] 05-06-2024 13:59-0500 Heart rate 89 /min [facility] 05-06-2024 13:59-0500 Systolic blood pressure 104 mm[Hg] [facility] 04-28-2024 14:52-0400 Body temperature 97 [degF] Ma Sand Work Phone: [facility] 04-28-2024 14:52-0400 Diastolic blood pressure 50 mm[Hg] Ma Sand Work Phone: [facility] 04-28-2024 14:52-0400 Heart rate 106 /min Ma Sand Work Phone: [facility] 04-28-2024 14:52-0400 Respiratory rate 18 /min Ma Sand Work Phone: [facility] 04-28-2024 14:52-0400 SaO2% (BldA) [Mass fraction] 98 % Ma Sand Work Phone: [facility] 04-28-2024 14:52-0400 Systolic blood pressure 78 mm[Hg] Ma Sand Work Phone: [facility] 03-10-2024 14:24-0400 Body temperature 97.7 [degF] Zahra May MD Work Phone: [facility] 03-10-2024 14:24-0400 Diastolic blood pressure 66 mm[Hg] Zahra May MD Work Phone: [facility] 03-10-2024 14:24-0400 Heart rate 79 /min Zahra May MD Work Phone: [facility] 03-10-2024 14:24-0400 Respiratory rate 16 /min Zahra May MD Work Phone: [facility] 03-10-2024 14:24-0400 SaO2% (BldA) [Mass fraction] 98 % Zahra May MD Work Phone: [facility] 03-10-2024 14:24-0400 Systolic blood pressure 98 mm[Hg] Zahra May MD Work Phone: [facility] 03-03-2024 13:12-0400 Diastolic blood pressure 66 mm[Hg] Ma Sand Work Phone: [facility] 03-03-2024 13:12-0400 Heart rate 80 /min Ma Sand Work Phone: [facility] 03-03-2024 13:12-0400 Respiratory rate 20 /min Ma Sand Work Phone: [facility] 03-03-2024 13:12-0400 SaO2% (BldA) [Mass fraction] 97 % Ma Sand Work Phone: [facility] 03-03-2024 13:12-0400 Systolic blood pressure 95 mm[Hg] Ma Sand Work Phone: [facility] 01-29-2024 15:18-0400 Body temperature 97.7 [degF] Ma Sand Work Phone: [facility] 01-29-2024 15:18-0400 Diastolic blood pressure 65 mm[Hg] Ma Sand Work Phone: [facility] 01-29-2024 15:18-0400 Heart rate 108 /min Ma Sand Work Phone: [facility] 01-29-2024 15:18-0400 Respiratory rate 16 /min Ma Sand Work Phone: [facility] 01-29-2024 15:18-0400 SaO2% (BldA) [Mass fraction] 98 % Ma Sand Work Phone: [facility] 01-29-2024 15:18-0400 Systolic blood pressure 99 mm[Hg] Ma Sand Work Phone: [facility] 01-08-2024 15:25-0400 Body temperature 97.59 [degF] Ma Sand Work Phone: [facility] 01-08-2024 15:25-0400 Diastolic blood pressure 68 mm[Hg] Ma Sand Work Phone: [facility] 01-08-2024 15:25-0400 Heart rate 88 /min Ma Sand Work Phone: [facility] 01-08-2024 15:25-0400 Respiratory rate 16 /min Ma Sand Work Phone: [facility] 01-08-2024 15:25-0400 SaO2% (BldA) [Mass fraction] 97 % Ma Sand Work Phone: [facility] 01-08-2024 15:25-0400 Systolic blood pressure 101 mm[Hg] Ma Sand Work Phone: [facility] 12-24-2023 14:07-0400 Body height 166.37 cm [facility] 12-24-2023 14:07-0400 Body mass index (BMI) [Ratio] 23.1 kg/m2 [facility] 12-24-2023 14:07-0400 Body weight 63.95 kg [facility] 12-24-2023 14:07-0400 Diastolic blood pressure 66 mm[Hg] [facility] 12-24-2023 14:07-0400 Heart rate 76 /min [facility] 12-24-2023 14:07-0400 Systolic blood pressure 101 mm[Hg] [facility] 12-03-2023 15:01-0400 Body temperature 97.11 [degF] Zahra May MD Work Phone: [facility] 12-03-2023 15:01-0400 Diastolic blood pressure 66 mm[Hg] Zahra May MD Work Phone: [facility] 12-03-2023 15:01-0400 Heart rate 96 /min Zahra May MD Work Phone: [facility] 12-03-2023 15:01-0400 Respiratory rate 18 /min Zahra May MD Work Phone: [facility] 12-03-2023 15:01-0400 SaO2% (BldA) [Mass fraction] 98 % Zahra May MD Work Phone: [facility] 12-03-2023 15:01-0400 Systolic blood pressure 102 mm[Hg] Zahra May MD Work Phone: [facility] 11-27-2023 13:38-0400 Body height 166.37 cm [facility] 11-27-2023 13:38-0400 Body mass index (BMI) [Ratio] 23.1 kg/m2 [facility] 11-27-2023 13:38-0400 Body weight 63.95 kg [facility] 11-27-2023 13:38-0400 Diastolic blood pressure 63 mm[Hg] [facility] 11-27-2023 13:38-0400 Heart rate 92 /min [facility] 11-27-2023 13:38-0400 Systolic blood pressure 98 mm[Hg] [facility] 11-05-2023 14:25-0400 Body temperature 97.3 [degF] Ma Sand Work Phone: [facility] 11-05-2023 14:25-0400 Diastolic blood pressure 64 mm[Hg] Ma Sand Work Phone: [facility] 11-05-2023 14:25-0400 Heart rate 95 /min Ma Sand Work Phone: [facility] 11-05-2023 14:25-0400 Respiratory rate 18 /min Ma Sand Work Phone: [facility] 11-05-2023 14:25-0400 SaO2% (BldA) [Mass fraction] 99 % Ma Sand Work Phone: [facility] 11-05-2023 14:25-0400 Systolic blood pressure 100 mm[Hg] Ma Sand Work Phone: [facility] 10-29-2023 14:36-0400 Body height 172.7 cm Irving Abreu DO Work Phone: [facility] 10-29-2023 14:36-0400 Body mass index (BMI) [Ratio] 21.44 kg/m2 Irving Abreu DO Work Phone: [facility] 10-29-2023 14:36-0400 Body weight 63.96 kg Irving Abreu DO Work Phone: [facility] Comment on above: unable say he weight in 141 10-29-2023 14:36-0400 Diastolic blood pressure 80 mm[Hg] Irving Abreu DO Work Phone: [facility] 10-29-2023 14:36-0400 Heart rate 84 /min Irving Abreu DO Work Phone: [facility] 10-29-2023 14:36-0400 Systolic blood pressure 120 mm[Hg] Irving Abreu DO Work Phone: [facility] 10-08-2023 14:54-0400 Body temperature 97.39 [degF] Ma Sand Work Phone: [facility] 10-08-2023 14:54-0400 Diastolic blood pressure 53 mm[Hg] Ma Sand Work Phone: [facility] 10-08-2023 14:54-0400 Heart rate 76 /min Ma Sand Work Phone: [facility] 10-08-2023 14:54-0400 Respiratory rate 18 /min Ma Sand Work Phone: [facility] 10-08-2023 14:54-0400 SaO2% (BldA) [Mass fraction] 98 % Melani Hart Work Phone: [facility] 10-08-2023 14:54-0400 Systolic blood pressure 95 mm[Hg] Melani Hart Work Phone: [facility] 09-11-2023 13:59-0400 Body height 166.37 cm DO Rick Rivass Work Phone: [facility] 09-11-2023 13:59-0400 Body mass index (BMI) [Ratio] 22.9 kg/m2 DO Rick Rivass Work Phone: [facility] 09-11-2023 13:59-0400 Body weight 63.5 kg DO Rick Rivass Work Phone: [facility] 09-11-2023 13:59-0400 Diastolic blood pressure 68 mm[Hg] DO Rick Rivass Work Phone: [facility] 09-11-2023 13:59-0400 Heart rate 80 /min DO Rick Rivass Work Phone: [facility] 09-11-2023 13:59-0400 SaO2% (BldA) [Mass fraction] 99 % DO Rick Rivass Work Phone: [facility] 09-11-2023 13:59-0400 Systolic blood pressure 99 mm[Hg] DO Rick Rivass Work Phone: [facility] 09-10-2023 13:55-0400 Body height 170.8 cm Zahra May MD Work Phone: [facility] 09-10-2023 13:55-0400 Body temperature 97.11 [degF] Zahra May MD Work Phone: [facility] 09-10-2023 13:55-0400 Diastolic blood pressure 69 mm[Hg] Zahra May MD Work Phone: [facility] 09-10-2023 13:55-0400 Heart rate 83 /min Zahra May MD Work Phone: [facility] 09-10-2023 13:55-0400 Respiratory rate 16 /min Zahra May MD Work Phone: [facility] 09-10-2023 13:55-0400 SaO2% (BldA) [Mass fraction] 97 % Zahra May MD Work Phone: [facility] 09-10-2023 13:55-0400 Systolic blood pressure 113 mm[Hg] Zahra May MD Work Phone: [facility] 08-27-2023 14:03-0500 Body height 166.37 cm DO Rick Rivass Work Phone: [facility] 08-27-2023 14:03-0500 Body mass index (BMI) [Ratio] 22.9 kg/m2 DO Rick Brennanillis Work Phone: [facility] 08-27-2023 14:03-0500 Body weight 63.5 kg DO Rick Brennanillis Work Phone: [facility] 08-27-2023 14:03-0500 Diastolic blood pressure 71 mm[Hg] DO Rick Brennanillis Work Phone: [facility] 08-27-2023 14:03-0500 Heart rate 96 /min DO Rick Brennanillis Work Phone: [facility] 08-27-2023 14:03-0500 SaO2% (BldA) [Mass fraction] 99 % DO Rick Brennanillis Work Phone: [facility] 08-27-2023 14:03-0500 Systolic blood pressure 114 mm[Hg] DO Rick Grillis Work Phone: [facility] 06-04-2023 13:30-0500 Body height 168.91 cm David Caputo Other [employer] Other 06-04-2023 13:30-0500 Body mass index (BMI) [Ratio] 20.67 kg/m2 David Caputo Other [employer] Other 06-04-2023 13:30-0500 Body weight 58.97 kg David Caputo Other [employer] Other 06-04-2023 13:30-0500 Diastolic blood pressure 63 mm[Hg] David Caputo Other [employer] Other 06-04-2023 13:30-0500 Systolic blood pressure 99 mm[Hg] David Caputo Other [employer] Other 04-09-2023 14:57-0400 Body height 170.8 cm Ma Sand Work Phone: [facility] 04-09-2023 14:57-0400 Body temperature 97.39 [degF] Ma Sand Work Phone: [facility] 04-09-2023 14:57-0400 Body weight 50.8 kg Ma Sand Work Phone: [facility] 04-09-2023 14:57-0400 Diastolic blood pressure 66 mm[Hg] Ma Sand Work Phone: [facility] 04-09-2023 14:57-0400 Heart rate 93 /min Ma Sand Work Phone: [facility] 04-09-2023 14:57-0400 Respiratory rate 16 /min Ma Sand Work Phone: [facility] 04-09-2023 14:57-0400 SaO2% (BldA) [Mass fraction] 97 % Ma Sand Work Phone: [facility] 04-09-2023 14:57-0400 Systolic blood pressure 108 mm[Hg] Ma Sand Work Phone: [facility] 03-11-2023 10:36-0400 Body height 170.8 cm Zahra May MD Work Phone: [facility] 03-11-2023 10:36-0400 Body temperature 97.39 [degF] Zahra May MD Work Phone: [facility] 03-11-2023 10:36-0400 Diastolic blood pressure 81 mm[Hg] Zahra May MD Work Phone: [facility] 03-11-2023 10:36-0400 Heart rate 83 /min Zahra May MD Work Phone: [facility] 03-11-2023 10:36-0400 Respiratory rate 18 /min Zahra May MD Work Phone: [facility] 03-11-2023 10:36-0400 SaO2% (BldA) [Mass fraction] 100 % Zahra May MD Work Phone: [facility] 03-11-2023 10:36-0400 Systolic blood pressure 118 mm[Hg] Zahra May MD Work Phone: [facility] 03-05-2023 14:30-0400 Body height 168.91 cm David Caputo Other [employer] Other 03-05-2023 14:30-0400 Body mass index (BMI) [Ratio] 20.67 kg/m2 David Caputo Other [employer] Other 03-05-2023 14:30-0400 Body weight 58.97 kg David Caputo Other [employer] Other 03-05-2023 14:30-0400 Diastolic blood pressure 66 mm[Hg] David Caputo Other [employer] Other 03-05-2023 14:30-0400 Systolic blood pressure 107 mm[Hg] David Caputo Other [facility] [employer] Other 02-19-2023 15:22-0400 Body temperature 97.5 [degF] Zahra May MD Work Phone: [facility] 02-19-2023 15:22-0400 Body weight 50.8 kg Zahra May MD Work Phone: [facility] 02-19-2023 15:22-0400 Diastolic blood pressure 63 mm[Hg] Zahra May MD Work Phone: [facility] 02-19-2023 15:22-0400 Heart rate 98 /min Zahra May MD Work Phone: [facility] 02-19-2023 15:22-0400 Respiratory rate 18 /min Zahra May MD Work Phone: [facility] 02-19-2023 15:22-0400 SaO2% (BldA) [Mass fraction] 97 % Zahra May MD Work Phone: [facility] 02-19-2023 15:22-0400 Systolic blood pressure 98 mm[Hg] Zahra May MD Work Phone: [facility] 02-12-2023 08:05-0400 PAIN LEVEL 0 {score} Dr. Adriane Mccoy [facility] 02-12-2023 04:59-0400 PAIN LEVEL 0 {score} Dr. Adriane Espitia [facility] 02-12-2023 04:01-0400 Body temperature 98.8 [degF] Dr. Adriane Mccoy [facility] 02-12-2023 04:01-0400 Diastolic blood pressure 72 mm[Hg] Dr. Adriane Espitia [facility] 02-12-2023 04:01-0400 Heart rate 87 /min Dr. Adriane Mccoy [facility] 02-12-2023 04:01-0400 Respiratory rate 17 /min Dr. Adriane Mccoy [facility] 02-12-2023 04:01-0400 Systolic blood pressure 114 mm[facility]Hg[facility]-11-2023 16:27-0400 Body temperature 98.5 [degF] Dr. Adriane Mccoy [facility] 02-11-2023 16:27-0400 Diastolic blood pressure 72 mm[facility] 16:27-0400 Heart rate 74 /min Dr. Adriane [facility]ccoy [facility] 02-11-2023 16:27-0400 Respiratory rate 16 /[facility]-11-2023 16:27-0400 Systolic blood pressure 113 mm[Hg] Dr. Adriane Espitia [facility] 02-11-2023 08:28-0400 PAIN LEVEL 0 {score} Dr. Adriane Mccoy [facility] 02-11-2023 05:16-0400 PAIN LEVEL 0 {score} [facility] 02-11-2023 01:47-0400 Body temperature 98.2 [degF] Dr. Adriane Mccoy [facility] 02-11-2023 01:47-0400 Diastolic blood pressure 76 mm[Hg[facility] 02-11-2023 01:47-0400 Heart rate 80 /min Dr. Adriane Mccoy [facility] 02-11-2023 01:47-0400 Respiratory rate 17 /min Dr. Adriane Mccoy [facility] 02-11-2023 01:47-0400 Systolic blood pressure 110 mm[Hg[facility] 02-10-2023 16:22-0400 Body temperature 98.5 [degF] Dr. Adriane Mccoy [facility] 02-10-2023 16:22-0400 Diastolic blood pressure 73 mm[Hg[facility] 02-10-2023 16:22-0400 Heart rate 73 /min Dr. Adriane Mccoy [facility] 02-10-2023 16:22-0400 Respiratory rate 20 /min Dr. Adriane Mccoy [facility] 02-10-2023 16:22-0400 Systolic blood pressure 110 mm[Hg] Dr. Adriane Espitia [facility] 02-10-2023 08:58-0400 PAIN LEVEL 0 {score} Dr. Adriane Mccoy [facility] 02-10-2023 03:21-0400 Body temperature 98.5 [degF] Dr. Adriane Mccoy [facility] 02-10-2023 03:21-0400 Diastolic blood pressure 67 mm[Hg[facility] 02-10-2023 03:21-0400 Heart rate 76 /min Dr. Adriane Mccoy [facility] 02-10-2023 03:21-0400 Respiratory rate 17 /min Dr. Adriane Mccoy [facility] 02-10-2023 03:21-0400 Systolic blood pressure 104 mm[Hg[facility] 02-10-2023 02:32-0400 PAIN LEVEL 0 {score} Dr. Adriane Mccoy [facility] 02-09-2023 19:58-0400 PAIN LEVEL 1 {score} Dr. Adriane Lunamir [facility] 02-09-2023 18:46-0400 PAIN LEVEL 3 {score} Dr. Adriane Mccoy [facility] 02-09-2023 16:19-0400 Body temperature 98.8 [degF] Dr. Adriane Mccoy [facility] 02-09-2023 16:19-0400 Diastolic blood pressure 71 mm[Hg] Dr. Adriane Espitia [facility] 02-09-2023 16:19-0400 Heart rate 81 /[facility] 02-09-2023 16:19-0400 Respiratory rate 18 /[facility]-09-[facility]23 16:19-0400 Systolic blood pressure 113 mm[Hg] Dr. Adriane Espitia [facility] 02-09-2023 08:24-0400 PAIN LEVEL 0 {score} Dr. Adriane Mccoy [facility] 02-09-2023 02:56-0400 PAIN LEVEL 0 {score} Dr. Adriane Mccoy [facility] 02-08-2023 19:51-0400 Body temperature 97.4 [degF] Dr. Adriane Mccoy [facility] 02-08-2023 19:51-0400 Diastolic blood pressure 77 mm[Hg[facility] 02-08-2023 19:51-0400 Heart rate 79 /min Dr. Adriane Mccoy [facility] 02-08-2023 19:51-0400 Respiratory rate 16 /min Dr. Adriane Lunamir [facility] 02-08-2023 19:51-0400 Systolic blood pressure 117 mm[Hg[facility] 02-08-2023 13:37-0400 Body weight 60.[address] [facility] 02-08-2023 08:24-0400 PAIN LEVEL 0 {score} [facility] 02-07-2023 17:47-0400 Body temperature 97.5 [degF] Dr. Adriane Mccoy [facility] 02-07-2023 17:47-0400 Diastolic blood pressure 68 mm[Hg[facility] 02-07-2023 17:47-0400 Heart rate 83 /[facility] 02-07-2023 17:47-0400 Respiratory rate 20 /min Dr. Adriane Mccoy [facility] 02-07-2023 17:47-0400 Systolic blood pressure 119 mm[Hg] Dr. Adriane Espitia [facility] 02-07-2023 13:59-0400 Body temperature 98.1 [degF] Dr. Adriane Mccoy [facility] 02-07-2023 13:59-0400 Diastolic blood pressure 87 mm[Hg[facility] 02-07-2023 13:59-0400 Heart rate 77 /min Dr. Adriane Mccoy [facility] 02-07-2023 13:59-0400 Respiratory rate 20 /[facility] 02-07-2023 13:59-0400 Systolic blood pressure 146 mm[Hg[facility] 02-07-2023 08:51-0400 PAIN LEVEL 0 {score} Dr. Adriane Mccoy [facility] 02-07-2023 05:11-0400 Body temperature 98 [degF] Dr. Adriane Espitia [facility] 02-07-2023 05:11-0400 Diastolic blood pressure 72 mm[Hg] Dr. Adriane Espitia [facility] 02-07-2023 05:11-0400 Heart rate 70 /[facility] 02-07-2023 05:11-0400 Respiratory rate 16 /[facility] 02-07-2023 05:11-0400 Systolic blood pressure 112 mm[Hg] Dr. Adriane Espitia [facility] 02-07-2023 01:10-0400 PAIN LEVEL 0 {score} Dr. Adriane Mccoy [facility] 02-06-2023 18:12-0400 Body temperature 98.2 [degF] Dr. Adriane Mccoy [facility] 02-06-2023 18:12-0400 Diastolic blood pressure 74 mm[Hg] [facility] 18:12-0400 Heart rate 72 /min Dr. Adriane Mccoy [facility] 02-06-2023 18:12-0400 Respiratory rate 17 /min Dr. Adriane Lunamir [facility] 02-06-2023 18:12-0400 Systolic blood pressure 116 mm[Hg] [facility] 17:16-0400 PAIN LEVEL 0 {score} Dr. Adriane Mccoy [facility] 02-06-2023 09:10-0400 PAIN LEVEL 0 {score} Dr. Adriane Espitia [facility] 02-06-2023 03:23-0400 PAIN LEVEL 0 {score} [facility] 01:40-0400 Body temperature 98.7 [degF] Dr. Adriane Mccoy [facility] 02-06-2023 01:40-0400 Diastolic blood pressure 73 mm[Hg] Dr. Adriane Espitia [facility] 02-06-2023 01:40-0400 Heart rate 83 /[facility] 01:40-0400 Respiratory rate 16 /min Dr. Adriane Lunamir [facility] 02-06-2023 01:40-0400 Systolic blood pressure 121 mm[Hg] Dr. Adriane Espitia [facility] 02-05-2023 18:38-0400 Body temperature 99 [degF] Dr. Adriane Mccoy [facility] 02-05-2023 18:38-0400 Diastolic blood pressure 67 mm[Hg] Dr. Adriane Espitia [facility] 02-05-2023 18:38-0400 Heart rate 81 /min Dr. Adriane Mccoy [facility] 02-05-2023 18:38-0400 Respiratory rate 18 /min Dr. Adriane Mccoy [facility] 02-05-2023 18:38-0400 Systolic blood pressure 105 mm[Hg] Dr. Adriane Espitia [facility] 02-05-2023 14:45-0400 Body temperature 97.6 [degF] [facility] 14:45-0400 Diastolic blood pressure 65 mm[Hg] Dr. Adriane Espitia [facility] 02-05-2023 14:45-0400 Heart rate 64 /[facility]-05-2023 14:45-0400 Respiratory rate 16 /[facility]-05-[facility]23 14:45-0400 Systolic blood pressure 96 mm[Hg] Dr. Adriane Espitia [facility] 02-05-2023 08:13-0400 PAIN LEVEL 0 {score} Dr. Adriane Mccoy [facility] 02-05-2023 08:11-0400 PAIN LEVEL 0 {score} [facility] 02-05-2023 05:35-0400 Body temperature 97.5 [degF] Dr. Adriane Mccoy [facility] 02-05-2023 05:35-0400 Diastolic blood pressure 71 mm[Hg] Dr. Adriane Espitia [facility] 02-05-2023 05:35-0400 Heart rate 73 /min Dr. Adriane Mccoy [facility] 02-05-2023 05:35-0400 Respiratory rate 17 /min Dr. Adriane Mccoy [facility] 02-05-2023 05:35-0400 Systolic blood pressure 109 mm[Hg] [facility]-05-2023 03:14-0400 PAIN LEVEL 3 {score} Dr. Adriane Mccoy [facility] 02-05-2023 02:33-0400 PAIN LEVEL 2 {score} [facility]-04-2023 08:52-0400 PAIN LEVEL 0 {score} Dr. Adriane Mccoy [facility] 02-04-2023 01:24-0400 Body temperature 98.6 [degF] Dr. Adriane Mccoy [facility] 02-04-2023 01:24-0400 Diastolic blood pressure 66 mm[Hg] Dr. Adriane Espitia [facility] 02-04-2023 01:24-0400 Heart rate 81 /min Dr. Adriane Mccoy [facility] 02-04-2023 01:24-0400 Respiratory rate 17 /min Dr. Adriane Mccoy [facility] 02-04-2023 01:24-0400 Systolic blood pressure 106 mm[Hg] [facility] 02-03-2023 16:05-0400 Body temperature 98.4 [degF] Dr. Adriane Mccoy [facility] 02-03-2023 16:05-0400 Diastolic blood pressure 82 mm[Hg] [facility]-03-2023 16:05-0400 Heart rate 82 /min Dr. Adriane Mccoy [facility] 02-03-2023 16:05-0400 Respiratory rate 17 /min Dr. Adriane Mccoy [facility] 02-03-2023 16:05-0400 Systolic blood pressure 123 mm[Hg] Dr. Adriane Espitia [facility] 02-03-2023 08:39-0400 PAIN LEVEL 0 {score} Dr. Adriane Mccoy [facility] 02-03-2023 00:36-0400 Oxygen saturation in Blood 95 % Dr. Adriane Espitia [facility] 02-03-2023 00:34-0400 Diastolic blood pressure 71 mm[Hg] [facility] 02-03-2023 00:34-0400 Systolic blood pressure 113 mm[Hg] Dr. Adriane Espitia [facility] 02-03-2023 00:33-0400 Respiratory rate 17 /min Dr. Adriane Mccoy [facility] 02-03-2023 00:30-0400 Heart rate 62 /min Dr. Adriane Mccoy [facility] 02-03-2023 00:29-0400 Body temperature 98.3 [degF] Dr. Adriane Mccoy [facility] 02-02-2023 23:38-0400 PAIN LEVEL 0 {score} Dr. Adriane Mccoy [facility] 02-02-2023 15:55-0400 Body temperature 97.4 [degF] Dr. Adriane Mccoy [facility] 02-02-2023 15:55-0400 Diastolic blood pressure 68 mm[Hg] [facility] 02-02-2023 15:55-0400 Heart rate 80 /min Dr. Adriane Mccoy [facility] 02-02-2023 15:55-0400 Respiratory rate 16 /min Dr. Adriane Mccoy [facility] 02-02-2023 15:55-0400 Systolic blood pressure 105 mm[Hg] Dr. Adriane Espitia [facility] 02-02-2023 12:21-0400 Body temperature 97.6 [degF] Dr. Adriane Mccoy [facility] 02-02-2023 12:21-0400 Diastolic blood pressure 81 mm[Hg] Dr. Adriane Espitia [facility] 02-02-2023 12:21-0400 Heart rate 81 /min Dr. Adriane Mccoy [facility] 02-02-2023 12:21-0400 Respiratory rate 16 /min Dr. Adriane Mccoy [facility] 02-02-2023 12:21-0400 Systolic blood pressure 131 mm[Hg] Dr. Adriane Espitia [facility] 02-02-2023 08:10-0400 PAIN LEVEL 0 {score} Dr. Adriane Mccoy [facility] 02-02-2023 02:12-0400 Body temperature 98.1 [degF] Dr. Adriane Mccoy [facility] 02-02-2023 02:12-0400 Diastolic blood pressure 70 mm[Hg] Dr. Adriane Espitia [facility] 02-02-2023 02:12-0400 Heart rate 71 /min Dr. Adriane Mccoy [facility] 02-02-2023 02:12-0400 Respiratory rate 18 /min Dr. Adriane Mccoy [facility] 02-02-2023 02:12-0400 Systolic blood pressure 112 mm[Hg] Dr. Adriane Espitia [facility] 02-02-2023 00:43-0400 PAIN LEVEL 0 {score} Dr. Adriane Mccoy [facility] 02-01-2023 22:14-0400 Oxygen saturation in Blood 94 % Dr. Adriane Espitia [facility] 02-01-2023 22:11-0400 Oxygen saturation in Blood 94 % Dr. Adriane Espitia [facility] 02-01-2023 17:18-0400 PAIN LEVEL 0 {score} Dr. Adriane Mccoy [facility] 02-01-2023 15:46-0400 Body temperature 98.3 [degF] Dr. Adriane Mccoy [facility] 02-01-2023 15:46-0400 Diastolic blood pressure 70 mm[Hg] Dr. Adriane Espitia [facility] 02-01-2023 15:46-0400 Heart rate 70 /min Dr. Adriane Mccoy [facility] 02-01-2023 15:46-0400 Respiratory rate 19 /min Dr. Adriane Mccoy [facility] 02-01-2023 15:46-0400 Systolic blood pressure 109 mm[Hg] Dr. Adriane Espitia [facility] 02-01-2023 14:56-0400 Body weight 65.[address] [facility] 02-01-2023 14:36-0400 Body temperature 98.4 [degF] Dr. Adriane Mccoy [facility] 02-01-2023 14:36-0400 Diastolic blood pressure 80 mm[Hg] Dr. Adriane Espitia [facility] 02-01-2023 14:36-0400 Heart rate 70 /min Dr. Adriane Espitia [facility] 02-01-2023 14:36-0400 Respiratory rate 18 /min Dr. Adriane Espitia [facility] 02-01-2023 14:36-0400 Systolic blood pressure 135 mm[Hg] Dr. Adriane Espitia [facility] 02-01-2023 14:26-0400 Body weight 65.[address] [facility] 02-01-2023 09:47-0400 PAIN LEVEL 0 {score} Dr. Adriane Mccoy [facility] 02-01-2023 05:16-0400 Body temperature 97.6 [degF] Dr. Adriane Mccoy [facility] 02-01-2023 05:16-0400 Diastolic blood pressure 71 mm[Hg] Dr. Adriane Espitia [facility] 02-01-2023 05:16-0400 Heart rate 75 /min Dr. Adriane Mccoy [facility] 02-01-2023 05:16-0400 Respiratory rate 18 /min Dr. Adriane Mccoy [facility] 02-01-2023 05:16-0400 Systolic blood pressure 117 mm[Hg] Dr. Adriane Espitia [facility] 01-31-2023 16:00-0400 Body temperature 98.1 [degF] Dr. Adriane Mccoy [facility] 01-31-2023 16:00-0400 Diastolic blood pressure 71 mm[Hg] Dr. Adriane Espitia [facility] 01-31-2023 16:00-0400 Heart rate 76 /[facility] 01-31-2023 16:00-0400 Respiratory rate 17 /[facility] 01-31-2023 16:00-0400 Systolic blood pressure 109 mm[Hg] Dr. Adriane Espitia [facility] 01-31-2023 08:45-0400 PAIN LEVEL 0 {score} Dr. Adriane Mccoy [facility] 01-30-2023 08:08-0400 PAIN LEVEL 0 {score} Dr. Adriane Mccoy [facility] 01-30-2023 01:17-0400 Body temperature 99 [degF] Dr. Adriane Mccoy [facility] 01-30-2023 01:17-0400 Diastolic blood pressure 76 mm[Hg] Dr. Adriane Espitia [facility] 01-30-2023 01:17-0400 Heart rate 86 /min Dr. Adriane Mccoy [facility] 01-30-2023 01:17-0400 Respiratory rate 17 /min Dr. Adriane Mccoy [facility] 01-30-2023 01:17-0400 Systolic blood pressure 127 mm[Hg] Dr. Adriane Espitia [facility] 01-29-2023 18:43-0400 Body temperature 97.1 [degF] Dr. Adriane Mccoy [facility] 01-29-2023 18:43-0400 Diastolic blood pressure 74 mm[Hg] Dr. Adriane Espitia [facility] 01-29-2023 18:43-0400 Heart rate 84 /min Dr. Adriane Mccoy [facility] 01-29-2023 18:43-0400 Respiratory rate 17 /[facility] 01-29-2023 18:43-0400 Systolic blood pressure 128 mm[Hg] Dr. Adriane Lunamir [facility] 01-29-2023 13:51-0400 Body temperature 98.5 [degF] Dr. Adriane Mccoy [facility] 01-29-2023 13:51-0400 Diastolic blood pressure 76 mm[Hg] Dr. Adriane Espitia [facility] 01-29-2023 13:51-0400 Heart rate 74 /min Dr. Adriane Mccoy [facility] 01-29-2023 13:51-0400 Respiratory rate 17 /min Dr. Adriane Mccoy [facility] 01-29-2023 13:51-0400 Systolic blood pressure 130 mm[Hg] [facility] 01-29-2023 08:20-0400 PAIN LEVEL 0 {score} Dr. Adriane Mccoy [facility] 01-29-2023 05:12-0400 PAIN LEVEL 0 {score} Dr. Adriane Mccoy [facility] 01-29-2023 01:28-0400 Body temperature 98.1 [degF] Dr. Adriane Mccoy [facility] 01-29-2023 01:28-0400 Diastolic blood pressure 74 mm[Hg] [facility] 01-29-2023 01:28-0400 Heart rate 72 /[facility] 01-29-2023 01:28-0400 Respiratory rate 16 /min Dr. Adriane Mccoy [facility] 01-29-2023 01:28-0400 Systolic blood pressure 127 mm[Hg] [facility] 01-28-2023 19:25-0400 Body temperature 98.2 [degF] Dr. Adriane Mccoy [facility] 01-28-2023 19:25-0400 Diastolic blood pressure 75 mm[Hg] [facility] 01-28-2023 19:25-0400 Heart rate 75 /min Dr. Adriane Mccoy [facility] 01-28-2023 19:25-0400 Respiratory rate 17 /min Dr. Adriane Mccoy [facility] 01-28-2023 19:25-0400 Systolic blood pressure 121 mm[Hg] [facility] 01-28-2023 11:56-0400 Body temperature 97.4 [degF] Dr. Adriane Mccoy [facility] 01-28-2023 11:56-0400 Diastolic blood pressure 80 mm[Hg] Dr. Adriane Espitia [facility] 01-28-2023 11:56-0400 Heart rate 88 /min Dr. Adriane Mccoy [facility] 01-28-2023 11:56-0400 Respiratory rate 21 /min Dr. Adriane Mccoy [facility] 01-28-2023 11:56-0400 Systolic blood pressure 124 mm[Hg] Dr. Adriane Espitia [facility] 01-28-2023 08:31-0400 PAIN LEVEL 0 {score} Dr. Adriane Mccoy [facility] 01-28-2023 04:36-0400 PAIN LEVEL 0 {score} Dr. Adriane Mccoy [facility] 01-28-2023 03:39-0400 Body temperature 98.3 [degF] Dr. Adriane Mccoy [facility] 01-28-2023 03:39-0400 Diastolic blood pressure 70 mm[Hg] [facility] 01-28-2023 03:39-0400 Heart rate 81 /min Dr. Adriane Mccoy [facility] 01-28-2023 03:39-0400 Respiratory rate 16 /min Dr. Adriane Mccoy [facility] 01-28-2023 03:39-0400 Systolic blood pressure 120 mm[Hg] [facility] 01-27-2023 16:03-0400 Body temperature 98.5 [degF] Dr. Adriane Mccoy [facility] 01-27-2023 16:03-0400 Diastolic blood pressure 58 mm[Hg] Dr. Adriane Espitia [facility] 01-27-2023 16:03-0400 Heart rate 77 /min Dr. Adriane Mccoy [facility] 01-27-2023 16:03-0400 Respiratory rate 17 /min Dr. Adriane Mccoy [facility] 01-27-2023 16:03-0400 Systolic blood pressure 113 mm[Hg] Dr. Adriane Espitia [facility] 01-27-2023 12:20-0400 Body temperature 98.1 [degF] Dr. Adriane Mccoy [facility] 01-27-2023 12:20-0400 Diastolic blood pressure 71 mm[Hg] Dr. Adriane Mccoy [facility] 01-27-2023 12:20-0400 Heart rate 84 /min Dr. Adriane Mccoy [facility] 01-27-2023 12:20-0400 Respiratory rate 19 /min Dr. Adriane Mccoy [facility] 01-27-2023 12:20-0400 Systolic blood pressure 121 mm[Hg] Dr. Adriane Espitia [facility] 01-27-2023 11:45-0400 Body weight 64.[address] [facility] 01-27-2023 08:25-0400 PAIN LEVEL 0 {score} Dr. Adriane Mccoy [facility] 01-27-2023 03:46-0400 Body temperature 98.4 [degF] Dr. Adriane Mccoy [facility] 01-27-2023 03:46-0400 Diastolic blood pressure 74 mm[Hg] Dr. Adriane Espitia [facility] 01-27-2023 03:46-0400 Heart rate 76 /min Dr. Adriane Mccoy [facility] 01-27-2023 03:46-0400 Respiratory rate 16 /[facility]-27-[facility] 03:46-0400 Systolic blood pressure 115 mm[Hg] Dr. Adriane Espitia [facility] 01-26-2023 23:42-0400 PAIN LEVEL 0 {score} [facility] 01-26-2023 15:51-0400 Body temperature 98.3 [degF] Dr. Adriane Mccoy [facility] 01-26-2023 15:51-0400 Diastolic blood pressure 73 mm[Hg] Dr. Adriane Espitia [facility] 01-26-2023 15:51-0400 Heart rate 80 /[facility] 01-26-2023 15:51-0400 Respiratory rate 19 /[facility] 01-26-2023 15:51-0400 Systolic blood pressure 115 mm[Hg] Dr. Adriane Espitia [facility] 01-26-2023 08:18-0400 PAIN LEVEL 0 {score} Dr. Adriane Mccoy [facility] 01-25-2023 22:35-0400 Body weight 63.[address] [facility] 01-25-2023 19:57-0400 Body weight 63.[address] [facility] 01-25-2023 16:56-0400 Body temperature 97.6 [degF] Dr. Adriane Mccoy [facility] 01-25-2023 16:56-0400 Diastolic blood pressure 72 mm[Hg] Dr. Adriane Espitia [facility] 01-25-2023 16:56-0400 Heart rate 75 /min Dr. Adriane Espitia [facility] 01-25-2023 16:56-0400 Oxygen saturation in Blood 95 % Dr. Adriane Espitia [facility] 01-25-2023 16:56-0400 Respiratory rate 18 /min Dr. Adriane Espitia [facility] 01-25-2023 16:56-0400 Systolic blood pressure 130 mm[Hg] Dr. Adriane Espitia [facility] 01-25-2023 11:33-0400 Body temperature 97.1 [degF] Dr. Adriane Mccoy [facility] 01-25-2023 11:33-0400 Diastolic blood pressure 81 mm[Hg] Dr. Adriane Espitia [facility] 01-25-2023 11:33-0400 Heart rate 71 /[facility] 01-25-2023 11:33-0400 Respiratory rate 16 /min Dr. Adriane Mccoy [facility] 01-25-2023 11:33-0400 Systolic blood pressure 133 mm[Hg] Dr. Adriane Espitia [facility] 01-25-2023 08:43-0400 PAIN LEVEL 0 {score} Dr. Adriane Lunamir [facility] 01-24-2023 19:59-0400 Body weight 63.[address] [facility] 01-24-2023 17:41-0400 Body temperature 97.1 [degF] Dr. Adriane Mccoy [facility] 01-24-2023 17:41-0400 Diastolic blood pressure 73 mm[Hg] Dr. Adriane Espitia [facility] 01-24-2023 17:41-0400 Heart rate 60 /min Dr. Adriane Mccoy [facility] 01-24-2023 17:41-0400 Oxygen saturation in Blood 97 % Dr. Adriane Espitia [facility] 01-24-2023 17:41-0400 Respiratory rate 20 /min Dr. Adriane Espitia [facility] 01-24-2023 17:41-0400 Systolic blood pressure 141 mm[Hg] Dr. Adriane Espitia [facility] 01-24-2023 13:57-0400 Body weight 65.[address] [facility] 01-24-2023 12:35-0400 Body temperature 98.6 [degF] Dr. Adriane Mccoy [facility] 01-24-2023 12:35-0400 Diastolic blood pressure 72 mm[Hg[facility]-24-2023 12:35-0400 Heart rate 71 /min Dr. Adriane Mccoy [facility] 01-24-2023 12:35-0400 Respiratory rate 17 /min Dr. Adriane Mccoy [facility] 01-24-2023 12:35-0400 Systolic blood pressure 131 mm[Hg] [facility] 01-24-2023 08:31-0400 PAIN LEVEL 0 {score} Dr. Adriane Mccoy [facility] 01-24-2023 01:01-0400 Body temperature 97.5 [degF] Dr. Adriane Lunamir [facility] 01-24-2023 01:01-0400 Diastolic blood pressure 73 mm[Hg] [facility] 01-24-2023 01:01-0400 Heart rate 61 /[facility] 01-24-2023 01:01-0400 Respiratory rate 16 /[facility]-24-[facility] 01:01-0400 Systolic blood pressure 119 mm[Hg] Dr. Adriane Espitia [facility] 01-23-2023 23:11-0400 PAIN LEVEL 0 {score} Dr. Adriane Mccoy [facility] 01-23-2023 19:27-0400 Body weight 64.[address] [facility] 01-23-2023 18:03-0400 PAIN LEVEL 0 {score} Dr. Adriane Mccoy [facility] 01-23-2023 17:38-0400 Oxygen saturation in Blood 96 % Dr. Adriane Espitia [facility] 01-23-2023 17:38-0400 PAIN LEVEL 0 {score} Dr. Adriane Mccoy [facility] 01-23-2023 16:19-0400 Body temperature 97.6 [degF] Dr. Adriane Mccoy [facility] 01-23-2023 16:19-0400 Diastolic blood pressure 73 mm[Hg] Dr. Adriane Espitia [facility] 01-23-2023 16:19-0400 Heart rate 70 /min Dr. Adriane Espitia [facility] 01-23-2023 16:19-0400 Respiratory rate 16 /min Dr. Adriane Espitia [facility] 01-23-2023 16:19-0400 Systolic blood pressure 119 mm[Hg] Dr. Adriane Espitia [facility] 01-01-2023 14:30-0400 Body height 168.91 cm David Caputo Other [employer] Other 01-01-2023 14:30-0400 Body mass index (BMI) [Ratio] 20.67 kg/m2 David Caputo Other [employer] Other 01-01-2023 14:30-0400 Body weight 58.97 kg David Caputo Other [employer] Other 01-01-2023 14:30-0400 Diastolic blood pressure 59 mm[Hg] David Caputo Other [employer] Other 01-01-2023 14:30-0400 Systolic blood pressure 87 mm[Hg] David Caputo Other [employer] Other 12-26-2022 16:02-0400 Body temperature 97.9 [degF] Ma Mantex Work Phone: [facility] 12-26-2022 16:02-0400 Diastolic blood pressure 58 mm[Hg] Ma Mantex Work Phone: [facility] 12-26-2022 16:02-0400 Heart rate 76 /min Ma Mantex Work Phone: [facility] 12-26-2022 16:02-0400 Respiratory rate 16 /min Ma Mantex Work Phone: [facility] 12-26-2022 16:02-0400 SaO2% (BldA) [Mass fraction] 100 % Ma Mantex Work Phone: [facility] 12-26-2022 16:02-0400 Systolic blood pressure 89 mm[Hg] Ma Mantex Work Phone: [facility] 12-04-2022 14:30-0400 Body height 168.91 cm David Caputo Other [employer] Other 12-04-2022 14:30-0400 Body mass index (BMI) [Ratio] 20.67 kg/m2 David Caputo Other [employer] Other 12-04-2022 14:30-0400 Body weight 58.97 kg David Caputo Other [employer] Other 12-04-2022 14:30-0400 Diastolic blood pressure 68 mm[Hg] David Caputo Other [employer] Other 12-04-2022 14:30-0400 SaO2% (BldA) [Mass fraction] 93 % David Caputo Other [employer] Other 12-04-2022 14:30-0400 Systolic blood pressure 109 mm[Hg] David Caputo Other [employer] Other 11-28-2022 15:14-0400 Body height 170.8 cm Zahra May MD Work Phone: [facility] 11-28-2022 15:14-0400 Body temperature 97.2 [degF] Zahra May MD Work Phone: [facility] 11-28-2022 15:14-0400 Diastolic blood pressure 63 mm[Hg] Zahra May MD Work Phone: [facility] 11-28-2022 15:14-0400 Heart rate 74 /min Zahra May MD Work Phone: [facility] 11-28-2022 15:14-0400 Respiratory rate 18 /min Zahra May MD Work Phone: [facility] 11-28-2022 15:14-0400 SaO2% (BldA) [Mass fraction] 98 % Zahra May MD Work Phone: [facility] 11-28-2022 15:14-0400 Systolic blood pressure 92 mm[Hg] Zahra May MD Work Phone: [facility] 10-31-2022 15:31-0400 Body height 170.8 cm Ma Sand Work Phone: [facility] 10-31-2022 15:31-0400 Body temperature 97.59 [degF] Ma Sand Work Phone: [facility] 10-31-2022 15:31-0400 Body weight 64.41 kg Ma Sand Work Phone: [facility] 10-31-2022 15:31-0400 Diastolic blood pressure 63 mm[Hg] Ma Sand Work Phone: [facility] 10-31-2022 15:31-0400 Heart rate 73 /min Ma Sand Work Phone: [facility] 10-31-2022 15:31-0400 Respiratory rate 16 /min Ma Sand Work Phone: [facility] 10-31-2022 15:31-0400 SaO2% (BldA) [Mass fraction] 98 % Ma Sand Work Phone: [facility] 10-31-2022 15:31-0400 Systolic blood pressure 115 mm[Hg] Ma Sand Work Phone: [facility] 09-05-2022 14:17-0500 Body temperature 97.5 [degF] Ma Sand Work Phone: [facility] 09-05-2022 14:17-0500 Diastolic blood pressure 67 mm[Hg] Ma Sand Work Phone: [facility] 09-05-2022 14:17-0500 Heart rate 65 /min Ma Sand Work Phone: [facility] 09-05-2022 14:17-0500 Respiratory rate 18 /min Ma Sand Work Phone: [facility] 09-05-2022 14:17-0500 SaO2% (BldA) [Mass fraction] 97 % Ma Sand Work Phone: [facility] 09-05-2022 14:17-0500 Systolic blood pressure 119 mm[Hg] Ma Sand Work Phone: [facility] 08-08-2022 14:39-0500 Body temperature 97.9 [degF] Zahra May MD Work Phone: [facility] 08-08-2022 14:39-0500 Body weight 64.41 kg Zahra May MD Work Phone: [facility] 08-08-2022 14:39-0500 Diastolic blood pressure 76 mm[Hg] Zahra May MD Work Phone: [facility] [facility] 08-08-2022 14:39-0500 Heart rate 88 /min Zahra May MD Work Phone: [facility] 08-08-2022 14:39-0500 Respiratory rate 40 /min Zahra May MD Work Phone: [facility] 08-08-2022 14:39-0500 SaO2% (BldA) [Mass fraction] 94 % Zahra May MD Work Phone: [facility] 08-08-2022 14:39-0500 Systolic blood pressure 111 mm[Hg] Zahra May MD Work Phone: [facility] 07-17-2022 15:45-0500 Body height 168.91 cm Dvaid Caputo Other [employer] Other 07-17-2022 15:45-0500 Body mass index (BMI) [Ratio] 22.57 kg/m2 David Caputo Other [employer] Other 07-17-2022 15:45-0500 Body weight 64.41 kg David Caputo Other [employer] Other 07-17-2022 15:45-0500 Diastolic blood pressure 58 mm[Hg] David Caputo Other [employer] Other 07-17-2022 15:45-0500 SaO2% (BldA) [Mass fraction] 99 % David Caputo Other [employer] Other 07-17-2022 15:45-0500 Systolic blood pressure 102 mm[Hg] David Caputo Other [employer] Other 07-03-2022 13:55-0500 Body height 170.8 cm Zahra May MD Work Phone: [facility] 07-03-2022 13:55-0500 Body temperature 97.39 [degF] Zahra May MD Work Phone: [facility] 07-03-2022 13:55-0500 Body weight 67.31 kg Zahra May MD Work Phone: [facility] 07-03-2022 13:55-0500 Diastolic blood pressure 82 mm[Hg] Zahra May MD Work Phone: [facility] 07-03-2022 13:55-0500 Heart rate 77 /min Zahra May MD Work Phone: [facility] 07-03-2022 13:55-0500 Respiratory rate 16 /min Zahra May MD Work Phone: [facility] 07-03-2022 13:55-0500 SaO2% (BldA) [Mass fraction] 100 % Zahra May MD Work Phone: [facility] 07-03-2022 13:55-0500 Systolic blood pressure 126 mm[Hg] Zahra May MD Work Phone: [facility] 06-06-2022 13:32-0500 Body height 170.8 cm Zahra May MD Work Phone: [facility] 06-06-2022 13:32-0500 Body temperature 97.11 [degF] Zahra May MD Work Phone: [facility] 06-06-2022 13:32-0500 Body weight 65.77 kg Zahra May MD Work Phone: [facility] 06-06-2022 13:32-0500 Diastolic blood pressure 60 mm[Hg] Zahra May MD Work Phone: [facility] 06-06-2022 13:32-0500 Heart rate 66 /min Zahra May MD Work Phone: [facility] 06-06-2022 13:32-0500 Respiratory rate 24 /min Zahra May MD Work Phone: [facility] 06-06-2022 13:32-0500 SaO2% (BldA) [Mass fraction] 100 % Zahra May MD Work Phone: [facility] 06-06-2022 13:32-0500 Systolic blood pressure 109 mm[Hg] Zahra May MD Work Phone: [facility] 05-08-2022 13:45-0500 Body height 170.8 cm Zahra May MD Work Phone: [facility] 05-08-2022 13:45-0500 Body temperature 97.81 [degF] Zahra May MD Work Phone: [facility] 05-08-2022 13:45-0500 Body weight 62.41 kg Zahra May MD Work Phone: [facility] 05-08-2022 13:45-0500 Diastolic blood pressure 58 mm[Hg] Zahra May MD Work Phone: [facility] 05-08-2022 13:45-0500 Heart rate 63 /min Zahra May MD Work Phone: [facility] 05-08-2022 13:45-0500 Respiratory rate 16 /min Zahra May MD Work Phone: [facility] 05-08-2022 13:45-0500 SaO2% (BldA) [Mass fraction] 97 % Zahra May MD Work Phone: [facility] 05-08-2022 13:45-0500 Systolic blood pressure 102 mm[Hg] Zahra May MD Work Phone: [facility] 04-10-2022 12:47-0400 Body height 170.8 cm Zahra May MD Work Phone: [facility] 04-10-2022 12:47-0400 Body temperature 97.7 [degF] Zahra May MD Work Phone: [facility] 04-10-2022 12:47-0400 Body weight 66.04 kg Zahra May MD Work Phone: [facility] 04-10-2022 12:47-0400 Diastolic blood pressure 70 mm[Hg] Zahra May MD Work Phone: [facility] 04-10-2022 12:47-0400 Heart rate 60 /min Zahra May MD Work Phone: [facility] 04-10-2022 12:47-0400 Respiratory rate 16 /min Zahra May MD Work Phone: [facility] 04-10-2022 12:47-0400 SaO2% (BldA) [Mass fraction] 99 % Zahra May MD Work Phone: [facility] 04-10-2022 12:47-0400 Systolic blood pressure 125 mm[Hg] Zahra May MD Work Phone: [facility] 03-13-2022 12:57-0400 Body height 170.8 cm Rola Gordon APRN.[employer] Work Phone: [facility] 03-13-2022 12:57-0400 Body temperature 97.11 [degF] Rola Gordon APRN.[employer] Work Phone: [facility] 03-13-2022 12:57-0400 Body weight 65.77 kg Rola Gordon APRN.[employer] Work Phone: [facility] 03-13-2022 12:57-0400 Diastolic blood pressure 68 mm[Hg] Rola Gordon APRN.[employer] Work Phone: [facility] 03-13-2022 12:57-0400 Heart rate 74 /min Rola Gordon APRN.[employer] Work Phone: [facility] 03-13-2022 12:57-0400 Respiratory rate 20 /min Rola Gordon APRN.[employer] Work Phone: [facility] 03-13-2022 12:57-0400 SaO2% (BldA) [Mass fraction] 100 % Rola Gordon APRN.[employer] Work Phone: [facility] 03-13-2022 12:57-0400 Systolic blood pressure 119 mm[Hg] Rola Gordon APRN.[employer] Work Phone: [facility] 02-13-2022 14:09-0400 Body height 170.8 cm Zahra May MD Work Phone: [facility] 02-13-2022 14:09-0400 Body temperature 97.81 [degF] Zahra May MD Work Phone: [facility] 02-13-2022 14:09-0400 Body weight 65.14 kg Zarha May MD Work Phone: [facility] 02-13-2022 14:09-0400 Diastolic blood pressure 74 mm[Hg] Zahra May MD Work Phone: [facility] 02-13-2022 14:09-0400 Heart rate 62 /min Zahra May MD Work Phone: [facility] 02-13-2022 14:09-0400 Respiratory rate 16 /min Zahra May MD Work Phone: [facility] 02-13-2022 14:09-0400 SaO2% (BldA) [Mass fraction] 95 % Zahra May MD Work Phone: [facility] 02-13-2022 14:09-0400 Systolic blood pressure 108 mm[Hg] Zahra May MD Work Phone: [facility] 02-04-2022 13:50-0400 63.6 1 [facility] Work Phone: Comment on above: [facility] 01-16-2022 14:00-0400 Body height 172.72 cm Nate Hanson Other [facility] Other 01-16-2022 14:00-0400 Body mass index (BMI) [Ratio] 21.28 kg/m2 Nate Hanson Other [facility] Other 01-16-2022 14:00-0400 Body weight 63.5 kg Nate Hanson Other [facility] Other 12-05-2021 14:57-0400 Body height 170.8 cm Zahra May MD Work Phone: [facility] 12-05-2021 14:57-0400 Body temperature 97.39 [degF] Zahra May MD Work Phone: [facility] 12-05-2021 14:57-0400 Body weight 73.48 kg Zahra May MD Work Phone: [facility] 12-05-2021 14:57-0400 Diastolic blood pressure 85 mm[Hg] Zahra May MD Work Phone: [facility] 12-05-2021 14:57-0400 Heart rate 80 /min Zahra May MD Work Phone: [facility] 12-05-2021 14:57-0400 Respiratory rate 16 /min Zahra May MD Work Phone: [facility] 12-05-2021 14:57-0400 SaO2% (BldA) [Mass fraction] 97 % Zahra May MD Work Phone: [facility] 12-05-2021 14:57-0400 Systolic blood pressure 123 mm[Hg] Zahra May MD Work Phone: [facility] Encounters Encounter Date Encounter Type Care Provider Facility Start: 05-06-2024 End: 05-06-2024 ambulatory [facility] Work Phone: Start: 05-06-2024 End: 05-06-2024 Patient encounter [facility] Work Phone: Start: 04-29-2024 Non-patient / Non-visit [facility] Work Phone: Start: 04-28-2024 End: 04-28-2024 [facility] Facility:[facility] Start: 04-28-2024 End: 04-28-2024 Nursing evaluation of patient and report Melani Hart Work Phone: Hematology/Oncology Comment on above: 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); Adenocarcinoma (HCC); Abnormal weight loss; Macrocytosis Start: 03-31-2024 End: 03-31-2024 [facility] Facility:[facility] Start: 03-31-2024 End: 04-05-2024 Nursing evaluation of patient and report Melani Hart Work Phone: Hematology/Oncology Comment on above: 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); Adenocarcinoma (HCC); Abnormal weight loss; Macrocytosis Refill Request Start: 03-10-2024 End: 03-10-2024 [facility] Facility:[facility] Start: 03-10-2024 End: 03-10-2024 Office outpatient visit 15 minutes Zahra May MD Work Phone: Hematology/Oncology Comment on above: 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); Iron deficiency anemia secondary to inadequate dietary iron intake; Anemia due to vitamin B12 deficiency, unspecified B12 deficiency type Start: 03-03-2024 End: 03-03-2024 Nursing evaluation of patient and report Melani Hart Work Phone: Hematology/Oncology Comment on above: 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); Adenocarcinoma (HCC); Abnormal weight loss; Macrocytosis Start: 03-03-2024 Non-patient / Non-visit [facility] Work Phone: Start: 03-03-2024 End: 03-04-2024 [facility] Facility:[facility] Start: 03-03-2024 End: 03-03-2024 Subsequent hospital visit by physician Arrival Time Radiology Work Phone: Radiology [facility] Comment on above: Iron deficiency anem ia secondary to inadequate dietary iron intake [D50.8] Start: 01-29-2024 End: 02-01-2024 [facility] Facility:[facility] Start: 01-29-2024 End: 01-29-2024 Nursing evaluation of patient and report Melani Hart Work Phone: Hematology/Oncology Comment on above: 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); Adenocarcinoma (HCC); Abnormal weight loss; Macrocytosis Start: 01-08-2024 End: 01-08-2024 [facility] Facility:[facility] Start: 01-08-2024 End: 01-08-2024 Nursing evaluation of patient and report Melani Masterson Sand Work Phone: Hematology/Oncology Comment on above: 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); Adenocarcinoma (HCC); Abnormal weight loss; Macrocytosis Start: 12-24-2023 End: 12-24-2023 ambulatory [facility] Work Phone: Start: 12-24-2023 End: 12-24-2023 [facility] encounter procedure [facility] Work Phone: Start: 12-03-2023 End: 12-03-2023 Nursing evaluation of patient and report Melani Hart Work Phone: Hematology/Oncology Comment on above: 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); Adenocarcinoma (HCC); Abnormal weight loss; Macrocytosis Start: 12-03-2023 End: 12-03-2023 Office outpatient visit 15 minutes Zahra May MD Work Phone: Hematology/Oncology Comment on above: Iron deficiency anem ia secondary to inadequate dietary iron intake (Primary Dx); Adenocarcinoma (HCC); Cancer of ampulla of Vater (HCC); Anemia due to vitamin B12 deficiency, unspecified B12 deficiency type Start: 12-03-2023 [facility] Work Phone: Start: 12-03-2023 End: 12-03-2023 ambulatory ZAHRA MAY Facility:[facility] Start: 12-03-2023 Telephone encounter Zahra foster MD [facility] Comment on above: Results Start: 11-27-2023 End: 11-27-2023 ambulatory [facility] Work Phone: Start: 11-27-2023 End: 11-27-2023 Patient encounter procedure [facility] Work Phone: Start: 11-16-2023 Refill Zahra ibrahim MD Work Phone: Hematology/Oncology Comment on above: Refill Request Start: 11-05-2023 End: 11-05-2023 ambulatory DAVID CAPUTO Facility:[facility] Start: 11-05-2023 End: 11-05-2023 Nursing evaluation of patient and report Ma Nurse Zelalem Hart Work Phone: Hematology/Oncology Comment on above: 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); Adenocarcinoma (HCC); Abnormal weight loss; Macrocytosis Start: 10-29-2023 End: 10-29-2023 ambulatory [facility] Start: 10-29-2023 End: 10-29-2023 Office outpatient visit 25 minutes [facility] Work Phone: [facility] Comment on above: Arteriosclerosis of carotid artery, unspecified laterality; History of PTCA; Old inferior wall myocardial infarction; PAF (paroxysmal atrial fibrillation) (Multi); Other specified diabetes mellitus with other specified complication, without long-term current use of insulin (Multi); Essential hypertension; Mixed hyperlipidemia; Former smoker; BMI 21.0-21.9, adult; Frailty Start: 10-15-2023 Refill Zahra ibrahim MD Work Phone: Hematology/Oncology Comment on above: Refill Request Start: 10-08-2023 End: 10-08-2023 ambulatory DAVID E CAPUTO Facility:[facility] Start: 10-08-2023 End: 10-08-2023 Nursing evaluation of patient and report Melani Hart Work Phone: Hematology/Oncology Comment on above: Macrocytosis (Primar y Dx); Abnormal weight loss; Adenocarcinoma (HCC); Cancer of ampulla of Vater (HCC) Start: 10-06-2023 Refill Zahra ibrahim MD Work Phone: Hematology/Oncology Comment on above: Refill Request Start: 10-06-2023 Non-patient / Non-visit [facility] Work Phone: Start: 09-24-2023 End: 09-24-2023 ambulatory ZAHRA GENAOABDON Facility:[facility] Start: 09-21-2023 Social Work Mackenzie AVILES Hematolo gy/Oncology Start: 09-18-2023 Refill Cassandra Hernandez RN Hemat ology/Oncology Comment on above: Refill Request Start: 09-11-2023 End: 09-11-2023 ambulatory DO Rick Zapata Work Phone: [facility] Work Phone: Start: 09-11-2023 End: 09-11-2023 Patient encounter procedure DO Rick Zapata Work Phone: [facility] Work Phone: Start: 09-10-2023 End: 09-10-2023 Nursing evaluation of patient and report Melani Hart Work Phone: Hematology/Oncology Comment on above: Macrocytosis (Primar y Dx); Abnormal weight loss; Adenocarcinoma (HCC); Cancer of ampulla of Vater (HCC) Start: 09-10-2023 End: 09-10-2023 ambulatory [facility] Facility:[facility] Start: 09-10-2023 End: 09-10-2023 Office outpatient visit 25 minutes Zahra May MD Work Phone: Hematology/Oncology Comment on above: Iron deficiency anem ia secondary to inadequate dietary iron intake (Primary Dx); Cancer of ampulla of Vater (HCC); Adenocarcinoma (HCC); Anemia due to vitamin B12 deficiency, unspecified B12 deficiency type; Severe protein-calorie malnutrition (HCC) Start: 09-10-2023 Telephone encounter Imelda Jack [facility] Work Phone: [facility] Comment on above: Medication Authoriza tion Start: 09-08-2023 Refill Imelda Singletary elsi [facility] Work Phone: [facility] Comment on above: Refill Request Start: 09-04-2023 Refill Imelda Singletary icelsi [facility] Work Phone: [facility] Comment on above: Refill Request Start: 09-03-2023 End: 09-03-2023 ambulatory [facility] Facility:[facility] Start: 09-03-2023 Non-patient / Non-visit DO Jolene Zapata Work Phone: [facility] Work Phone: Start: 09-03-2023 End: 09-03-2023 Subsequent hospital visit by physician Arrival Time Radiology Work Phone: Radiology [facility] Comment on above: 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] Start: 09-02-2023 Telephone encounter Cassandra Longoria Hematology/Oncology Comment on above: Medication Problem Start: 08-31-2023 Non-patient / Non-visit DO Jolene Zapata Work Phone: [facility] Work Phone: Start: 08-31-2023 Refill Zahra ibrahim MD Work Phone: Hematology/Oncology Comment on above: Refill Request Start: 08-27-2023 End: 08-27-2023 Patient encounter procedure DO Rick Zapata Work Phone: [facility] Work Phone: Start: 08-11-2023 Telephone encounter Estrellita Alvarez CMA [facility] Start: 08-10-2023 Orders Only Estrellita Alvarez [employer] [facility] Comment on above: Anemia, unspecified type (Primary Dx) Start: 08-06-2023 Orders Only Mary atkins RMA [facility] Comment on above: Iron deficiency anem ia, unspecified iron deficiency anemia type; History of gastric cancer; Rectal bleeding Start: 08-05-2023 End: 08-05-2023 ambulatory Rick Derrick [facility] Start: 08-05-2023 End: 08-05-2023 ambulatory DO Rick Zapata Work Phone: [facility] Work Phone: Start: 08-05-2023 End: 08-05-2023 Departed Referred DO Rick Zapata Work Phone: [facility] Start: 07-17-2023 Orders Only Rick Derrick vanessa DO Work Phone: [facility] Comment on above: Iron deficiency anem ia, unspecified iron deficiency anemia type (Primary Dx); History of gastric cancer; Rectal bleeding Start: 07-14-2023 End: 07-14-2023 ambulatory David Caputo Other [employer] Other Start: 07-14-2023 Telephone encounter David Caputo [facility] Start: 06-30-2023 End: 06-30-2023 ambulatory David Caputo Other [employer] Other Start: 06-30-2023 Telephone encounter David Caputo [facility] Start: 06-04-2023 End: 06-04-2023 ambulatory David Caputo Other [employer] Other Start: 06-04-2023 Office outpatient vi sit 25 minutes David Caputo [facility] Start: 06-04-2023 End: 06-04-2023 Patient encounter procedure DO Rick Zapata Work Phone: [facility] Work Phone: Start: 05-22-2023 End: 05-22-2023 ambulatory David Harshal Other [employer] Other Start: 05-22-2023 Telephone encounter David Caputo [facility] Start: 05-19-2023 End: 05-19-2023 ambulatory David Harshal Other [employer] Other Start: 05-19-2023 Telephone encounter David Caputo [facility] Start: 05-06-2023 End: 05-06-2023 ambulatory David Caputo Other [employer] Other Start: 05-06-2023 Telephone encounter David Caputo [facility] Start: 04-14-2023 End: 04-14-2023 ambulatory David Caputo Other [employer] Other Start: 04-14-2023 Telephone encounter David Caputo [facility] Start: 04-09-2023 End: 04-09-2023 Nursing evaluation of patient and report Ma Nurse Zelalem Hart Work Phone: Hematology/Oncology Comment on above: Macrocytosis (Primar y Dx); Abnormal weight loss; Adenocarcinoma (HCC); Cancer of ampulla of Vater (HCC) Start: 04-07-2023 End: 04-07-2023 ambulatory David Caputo Other [employer] Other Start: 04-07-2023 Telephone encounter David Caputo [facility] Start: 03-31-2023 End: 03-31-2023 ambulatory David Caputo Other [employer] Other Start: 03-31-2023 Telephone encounter David Caputo [facility] Start: 03-30-2023 Refill Zahra ibrahim MD Work Phone: Hematology/Oncology Comment on above: Refill Request Start: 03-20-2023 End: 03-20-2023 ambulatory David Caputo Other [employer] Other Start: 03-20-2023 Telephone encounter Davdi Caputo [facility] Start: 03-19-2023 End: 03-19-2023 ambulatory David Caputo Other [employer] Other Start: 03-19-2023 Telephone encounter David Caputo [facility] Start: 03-16-2023 End: 03-16-2023 ambulatory David Caputo Other [employer] Other Start: 03-16-2023 Telephone encounter David Caputo [facility] Start: 03-11-2023 Telephone encounter Zahra foster MD Work Phone: [facility] Comment on above: Future Appointment; Results Start: 03-11-2023 End: 03-11-2023 Nursing evaluation of patient and report Melani Hart Work Phone: Hematology/Oncology Comment on above: Macrocytosis (Primar y Dx); Abnormal weight loss; Adenocarcinoma (HCC); Cancer of ampulla of Vater (HCC) Start: 03-11-2023 End: 03-11-2023 Office outpatient visit 25 minutes Zahra May MD Work Phone: Hematology/Oncology Comment on above: 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); Anemia due to vitamin B12 deficiency, unspecified B12 deficiency type; Iron deficiency anemia, unspecified iron deficiency anemia type Start: 03-11-2023 End: 03-11-2023 Subsequent hospital visit by physician Arrival Time Radiology Work Phone: Radiology [facility] Comment on above: 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] Start: 03-10-2023 End: 03-10-2023 ambulatory David Caputo Other [employer] Other Start: 03-10-2023 Telephone encounter David Caputo [facility] Start: 03-09-2023 End: 03-09-2023 ambulatory David Caputo Other [employer] Other Start: 03-09-2023 Telephone encounter David Caputo [facility] Start: 03-05-2023 End: 03-05-2023 ambulatory David Caputo Other [employer] Other Start: 03-05-2023 Office outpatient vi sit 15 minutes David Caputo [facility] Start: 03-05-2023 Telephone encounter Zahra foster MD Work Phone: Hematology/Oncology Comment on above: Lab Orders Start: 02-19-2023 End: 02-19-2023 Office outpatient visit 25 minutes Zahra May MD Work Phone: Hematology/Oncology Comment on above: 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); Abnormal weight loss; Anemia due to vitamin B12 deficiency, unspecified B12 deficiency type; Macrocytosis; Iron deficiency anemia, unspecified iron deficiency anemia type Start: 02-19-2023 End: 02-19-2023 ambulatory David Caputo Other [employer] Other Start: 02-19-2023 Telephone encounter David Caputo [facility] Start: 02-17-2023 Telephone encounter Zahra foster MD Work Phone: Hematology/Oncology Comment on above: Lab Orders Start: 02-13-2023 End: 02-13-2023 ambulatory David Caputo Other [employer] Other Start: 02-13-2023 Telephone encounter David Caputo [facility] Start: 02-10-2023 End: 02-10-2023 ambulatory Adriane Espitia [facility] Start: 02-10-2023 End: 02-10-2023 Patient encounter procedure MD David Caputo Work Phone: [facility] Start: 01-27-2023 End: 01-27-2023 ambulatory David Caputo [facility] Start: 01-27-2023 End: 01-27-2023 ambulatory MD David Caputo Work Phone: [facility] Work Phone: Start: 01-27-2023 End: 01-27-2023 Patient encounter procedure MD David Caputo Work Phone: [facility] Start: 01-21-2023 Telephone encounter Susan kurtz RN Work Phone: Hematology/Oncology Comment on above: Hospital Admission Start: 01-14-2023 End: 01-14-2023 ambulatory David Captuo Other [employer] Other Start: 01-14-2023 Telephone encounter David Caputo [facility] Start: 01-13-2023 Telephone encounter Cassandra Longoria Hematology/Oncology Comment on above: Results; Appointment Start: 01-12-2023 End: 01-12-2023 ambulatory David Caputo Other [employer] Other Start: 01-12-2023 Telephone encounter David Caputo [facility] Start: 01-01-2023 End: 01-01-2023 ambulatory David Caputo Other [employer] Other Start: 01-01-2023 Office outpatient vi sit 15 minutes David Caputo [facility] Start: 12-26-2022 End: 12-26-2022 Nursing evaluation of patient and report Melani Hart Work Phone: Hematology/Oncology Comment on above: Macrocytosis (Primar y Dx); Abnormal weight loss; Adenocarcinoma (HCC); Cancer of ampulla of Vater (HCC) Start: 12-08-2022 End: 12-08-2022 ambulatory David Harshal Other [employer] Other Start: 12-08-2022 Telephone encounter David Caputo [facility] Start: 12-04-2022 End: 12-04-2022 ambulatory David Harshal Other [employer] Other Start: 12-04-2022 Office outpatient vi sit 15 minutes David Caputo [facility] Start: 11-28-2022 End: 11-28-2022 Nursing evaluation of patient and report Melani Hart Work Phone: Hematology/Oncology Comment on above: Macrocytosis (Primar y Dx); Abnormal weight loss; Adenocarcinoma (HCC); Cancer of ampulla of Vater (HCC) Start: 11-28-2022 End: 11-28-2022 Office outpatient visit 15 minutes Zahra May MD Work Phone: Hematology/Oncology Comment on above: Anemia due to vitami n B12 deficiency, unspecified B12 deficiency type (Primary Dx); Iron deficiency anemia, unspecified iron deficiency anemia type; Cancer of ampulla of Vater (HCC); Duodenal obstruction; Severe protein-calorie malnutrition (HCC) Start: 11-27-2022 End: 11-27-2022 ambulatory David Harshal Other [employer] Other Start: 11-27-2022 Telephone encounter David Caputo [facility] Start: 11-21-2022 End: 11-21-2022 ambulatory David Harshal Other [employer] Other Start: 11-21-2022 Telephone encounter David Caputo [facility] Start: 11-04-2022 End: 11-04-2022 ambulatory David Caputo Other [employer] Other Start: 11-04-2022 Telephone encounter David Harshal [facility] Start: 10-31-2022 End: 10-31-2022 Nursing evaluation of patient and report Melani Masterson Hailey Work Phone: Hematology/Oncology Comment on above: Macrocytosis (Primar y Dx); Abnormal weight loss; Adenocarcinoma (HCC); Cancer of ampulla of Vater (HCC) Start: 10-28-2022 End: 10-28-2022 ambulatory Zahra May MD Work Phone: [employer] Other Comment on above: Refill Request Start: 10-28-2022 Telephone encounter David Caputo [facility] Start: 10-03-2022 End: 10-03-2022 Nursing evaluation of patient and report Melani Hart Work Phone: Hematology/Oncology Comment on above: Macrocytosis (Primar y Dx); Abnormal weight loss; Adenocarcinoma (HCC); Cancer of ampulla of Vater (HCC) Start: 09-29-2022 End: 09-29-2022 ambulatory David Caputo Other [employer] Other Start: 09-29-2022 Telephone encounter David Caputo [facility] Start: 09-17-2022 End: 09-17-2022 ambulatory David Caputo Other [employer] Other Start: 09-17-2022 Telephone encounter David Caputo [facility] Start: 09-16-[address] David Caputo Facility: Start: 09-08-2022 End: 09-08-2022 ambulatory David Caputo Other [employer] Other Start: 09-08-2022 Telephone encounter David Caputo [facility] Start: 09-05-2022 End: 09-05-2022 Nursing evaluation of patient and report Melani Hart Work Phone: Hematology/Oncology Comment on above: Macrocytosis (Primar y Dx); Abnormal weight loss; Adenocarcinoma (HCC); Cancer of ampulla of Vater (HCC) Start: 08-19-2022 Refill Zahra ibrahim MD Work Phone: Hematology/Oncology Comment on above: Refill Request Start: 08-11-2022 End: 08-11-2022 ambulatory David Caputo Other [employer] Other Start: 08-11-2022 Telephone encounter Davdi Caputo [facility] Start: 08-08-2022 End: 08-08-2022 Office outpatient visit 15 minutes Zahra May MD Work Phone: Hematology/Oncology Comment on above: Macrocytosis (Primar y Dx); Anemia due to vitamin B12 deficiency, unspecified B12 deficiency type; Anemia due to folic acid deficiency, unspecified deficiency type; Cancer of ampulla of Vater (HCC) Start: 08-08-2022 Telephone encounter Magalys Cruz RN Hematology/Oncology Comment on above: Critical Results Start: 07-24-2022 End: 07-24-2022 ambulatory David Caputo Other [employer] Other Start: 07-24-2022 Telephone encounter David Caputo [facility] Start: 07-17-2022 End: 07-17-2022 ambulatory David Caputo Other [employer] Other Start: 07-17-2022 Office outpatient vi sit 25 minutes David Caputo [facility] Start: 07-11-2022 End: 07-12-[address] CORY POOL Facility: Start: 07-07-2022 Telephone encounter Magalys Cruz RN Hematology/Oncology Comment on above: Results Start: 07-03-2022 End: 07-03-2022 Nursing evaluation of patient and report Melani Hart Work Phone: Hematology/Oncology Comment on above: Macrocytosis (Primar y Dx); Abnormal weight loss; Adenocarcinoma (HCC); Cancer of ampulla of Vater (HCC); Anemia due to vitamin B12 deficiency, unspecified B12 deficiency type Start: 07-03-2022 End: 07-03-2022 ambulatory Zahra May MD Work Phone: Hematology/Oncology Comment on above: 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); Anemia due to vitamin B12 deficiency, unspecified B12 deficiency type; Anemia due to folic acid deficiency, unspecified deficiency type; Macrocytosis Start: 07-03-2022 End: 07-03-2022 Patient encounter procedure Zahra May MD Work Phone: [facility] Start: 07-03-2022 End: 07-03-2022 Subsequent hospital visit by physician Arrival Time Radiology Work Phone: Radiology Pet CT Comment on above: Interstitial pulmona ry disease (HCC) [J84.9] Start: 06-13-2022 Rx Renewal David Caputo Work Phone: [facility] 250 DO Work Phone: Start: 06-06-2022 End: 06-06-2022 Nursing evaluation of patient and report Ma Nurse Zelalem Hart Work Phone: Hematology/Oncology Comment on above: Macrocytosis (Primar y Dx); Abnormal weight loss; Adenocarcinoma (HCC); Cancer of ampulla of Vater (HCC) Start: 06-06-2022 End: 06-06-2022 ambulatory Zahra May MD Work Phone: Hematology/Oncology Comment on above: 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); Interstitial pulmonary disease (HCC); Iron deficiency anemia, unspecified iron deficiency anemia type; Anemia due to vitamin B12 deficiency, unspecified B12 deficiency type Start: 06-06-2022 End: 06-06-2022 Patient encounter procedure Zahra May MD Work Phone: [facility] Start: 05-19-2022 Hillary Gordon APRN.TERRAZZO LAYER Work Phone: Hematology/Oncology Comment on above: Refill Request Start: 05-13-2022 Adult health examination Rhea Caputo Other [employer] Other Start: 05-12-2022 End: 05-13-[address] DAVID CAPUTO Facility: Start: 05-08-2022 End: 05-08-2022 Nursing evaluation of patient and report Ma Nurse Zelalem Hart Work Phone: Hematology/Oncology Comment on above: Macrocytosis (Primar y Dx); Abnormal weight loss; Adenocarcinoma (HCC); Cancer of ampulla of Vater (HCC) Start: 05-08-2022 End: 05-08-2022 ambulatory Zahra May MD Work Phone: Hematology/Oncology Comment on above: Iron deficiency anem ia, unspecified iron deficiency anemia type (Primary Dx); Anemia due to vitamin B12 deficiency, unspecified B12 deficiency type; Anemia due to folic acid deficiency, unspecified deficiency type; Cancer of ampulla of Vater (HCC) Start: 05-08-2022 End: 05-08-2022 Patient encounter procedure Zahra May MD Work Phone: [facility] Start: 04-10-2022 End: [...] 04-10-2022 End: 04-10-2022 Patient encounter procedure Zahra May MD Work Phone: [facility] Start: 04-09-2022 Telephone encounter Zahra foster MD Work Phone: Hematology/Oncology Comment on above: Lab Orders Start: 03-27-2022 Refill Imelda Singletary joseelsi [facility] Work Phone: Hematology/Oncology Comment on above: Refill Request Start: 03-13-2022 Telephone encounter Financial Navigator Zelalem Work Phone: Hematology/Oncology Comment on above: Benefits Investigati on Refill Request Start: 03-13-2022 End: 03-13-2022 ambulatory Rola Gordon APRN.TERRAZZO LAYER Work Phone: Hematology/Oncology Comment on above: Cancer [...] [facility] Start: 03-10-2022 Rx Renewal [facility] Work Phone: Start: 03-06-2022 Rx Renewal David E Caputo Work Phone: [facility] 250 DO Work Phone: Start: 02-28-2022 Social [...] (HCC) Start: 02-13-2022 End: 02-13-2022 ambulatory Zahra May MD Work Phone: Hematology/Oncology Comment on above: Iron deficiency anem ia, unspecified iron deficiency anemia type (Primary Dx); Cancer of ampulla of Vater (HCC); Macrocytosis Start: 02-13-2022 End: 02-13-2022 Patient encounter procedure Zahra May MD Work Phone: [facility] Start: 02-11-2022 Refill Magalys Cruz RN Hematol ogy/Oncology Comment on above: Refill Request Start: 02-10-2022 Telephone encounter Veronica Hall RN Work Phone: Hematology/Oncology Comment on above: Care Coordination (M edication question/) Start: 02-06-2022 End: 02-06-2022 Subsequent hospital visit by physician Arrival Time Radiology Work Phone: Radiology Pet CT Comment on above: Iron deficiency anem ia, unspecified iron deficiency anemia type [D50.9] Start: 02-04-2022 End: 02-05-[address] IRVING ABREU Facility:[facility] Start: 01-16-2022 End: 01-16-2022 ambulatory Nate Hanson Other [employer] Other Start: 01-16-2022 Office outpatient vi sit 25 minutes Nate Hanson [facility] Gastro[facility]ology Start: 01-09-[address] 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); Duodenal obstruction; Iron deficiency anemia, unspecified iron deficiency anemia type; Adenocarcinoma (HCC); Primary malignant neoplasm (HCC); Malignant neoplasm of body of pancreas (HCC) Start: 12-05-2021 End: 12-05-2021 Patient encounter procedure Zahra May MD Work Phone: [facility] Start: 12-03-2021 Chart abstracting Zahra zapata MD Work Phone: Hematology/Oncology Start: 11-26-2021 End: 11-27-[address] DAVID CAPUTO Facility:[facility] Start: 11-12-2021 End: 11-13-[address] DAVID CAPUTO Facility:[facility] Start: 10-10-2021 End: 10-11-[address] DAVID CAPUTO Facility:[facility] Start: 07-02-2021 Rx Renewal Irving Garcia n DO Work Phone: -[facility] 250 DO Work Phone: Start: 09-30-2017 End: 10-09-2017 Evaluation and management of inpatient MICHAEL CEDILLO) [facility] Start: 09-28-2017 Ambulatory MAU DUFFY Facility: [id number] Start: 09-24-2017 Ambulatory MICHAEL CEDILLO) [facility] Start: 08-14-2017 End: 09-01-2017 Evaluation and management of inpatient MICHAEL CEDILLO) [facility] Procedures Date Procedure Procedure Detail Performing Clinician Start: 03-03-2024 Ct abdomen & pelvis w/contrast material Zahra May MD Work Phone: Start: 03-03-2024 Ct thorax w/contrast material Zahra foster MD Work Phone: Start: 03-03-2024 Blood count complete auto&auto difrntl wbc Zahra May MD Work Phone: Start: 03-03-2024 Immunoassay tumor antigen quantitative ca 19-9 Zahra May MD Work Phone: Start: 09-03-2023 Ct abdomen & pelvis w/contrast material Zahra May MD Work Phone: Start: 09-03-2023 Ct thorax w/contrast material Zahra foster MD Work Phone: Start: 09-03-2023 Blood count complete auto&auto difrntl wbc Zahra May MD Work Phone: Start: 09-03-2023 Immunoassay tumor antigen quantitative ca 19-9 Zahra May MD Work Phone: Start: 08-05-2023 EGD / COLONOSCOPY Rick Zapata DO Work Phone: Start: 08-05-2023 Level i surg pathology gross examination only Not In System Ref Prov Start: 07-06-2023 History of percutaneous transluminal coronary angioplasty History of PTCA Irving Abreu DO Work Phone: Start: 03-11-[address] attenuation skull base mid-thigh Zahra May MD Work Phone: Start: 03-11-2023 End: 03-11-2023 Blood count complete auto&auto difrntl wbc Zahra May MD Work Phone: Start: 07-03-2022 Ct abdomen & pelvis w/contrast material Zahra May MD Work Phone: Start: 07-03-2022 Ct thorax w/contrast material Zahra foster MD Work Phone: Start: 07-03-2022 Blood count complete auto&auto difrntl wbc Zahra May MD Work Phone: Start: 07-03-2022 Immunoassay tumor antigen quantitative ca 19-9 Zahra May MD Work Phone: Start: 02-06-2022 Ct abdomen & pelvis w/contrast material Zahra May MD Work Phone: Start: 02-06-2022 Ct thorax w/contrast material Zahra foster MD Work Phone: Start: 02-06-2022 Blood count complete auto&auto difrntl wbc Zahra May MD Work Phone: Start: 02-06-2022 Immunoassay tumor antigen quantitative ca 19-9 Zahra May MD Work Phone: Start: 10-10-[address] DAVID CAPUTO Comment on above: Performed By: #### [facility] #### [facility] [address] [place] [address] Dr. Mel Barrientos Start: 01-26-2020 Total colonoscopy David Caputo Work Phone: Start: 12-12-2019 Adult depression screening assessment Zahra May MD Work Phone: Cholecystectomy David valadez Work Phone: Esophagogastroduodenoscopy M axel Caputo Work Phone: History of percutane ous transluminal coronary angioplasty History of PTCA David Caputo Work Phone: History of percutane ous transluminal coronary angioplasty History of PTCA Irving Abreu DO Work Phone: Percutaneous translu jeremias coronary angioplasty David Caputo Work Phone: Screening for malign ant neoplasm of prostate David Caputo Other Plan of Treatment Date Care Activity Detail Author Start: 03-03-2027 [facility] Start: 12-02-2026 [facility] Start: 10-10-2026 PROSTATE CANCER SCRE ENING DISCUSSION PROSTATE CANCER SCREENING DISCUSSION [facility] Start: 10-10-2026 Prostate specific an tigen measurement Prostate Cancer Screening Discussion [facility] Start: 09-02-2026 [facility] Start: 03-11-2026 [facility] Start: 02-19-2026 DIABETES SCREEN DIABETES SCREEN [facility] Start: 11-28-2025 DIABETES SCREEN DIABETES SCREEN [facility] Start: 10-03-2025 DIABETES SCREEN DIABETES SCREEN [facility] Start: 08-08-2025 DIABETES SCREEN DIABETES SCREEN [facility] Start: 07-03-2025 DIABETES SCREEN DIABETES SCREEN [facility] Start: 06-06-2025 DIABETES SCREEN DIABETES SCREEN [facility] Start: 05-08-2025 DIABETES SCREEN DIABETES SCREEN [facility] Start: 04-03-2025 DIABETES SCREEN DIABETES SCREEN [facility] Start: 03-06-2025 DIABETES SCREEN DIABETES SCREEN [facility] Start: 02-06-2025 DIABETES SCREEN DIABETES SCREEN [facility] Start: 11-10-2024 End: 11-10-2024 Patient encounter procedure 11/10/2024 11:30 AM EDT Office Visit [facility] [address] [place] [address] Irving Abreu DO [address] [place] [address] [facility] Start: 06-16-2024 End: 06-16-2024 Follow-up encounter Hematology/Oncology Comment on above: follow up after ct a nd lab Start: 06-09-2024 End: 03-10-2025 CBC W Auto Differential panel - Blood COMPLETE BLOOD COUNT AND DIFFERENTIAL Lab Routine Cancer of ampulla of Vater (HCC) Iron deficiency anemia secondary to inadequate dietary iron intake Anemia due to vitamin B12 deficiency, unspecified B12 deficiency type Expected: 06/09/2024 (Approximate), Expires: 03/10/2025 [facility] Comment on above: Expected: 06/09/2024 (Approximate), Expires: 03/10/2025 Start: 06-09-2024 End: 03-10-2025 Cobalamin (Vitamin B12) [Mass/volume] in Serum or Plasma VITAMIN B12 Lab Routine Cancer of ampulla of Vater (HCC) Iron deficiency anemia secondary to inadequate dietary iron intake Anemia due to vitamin B12 deficiency, unspecified B12 deficiency type Expected: 06/09/2024 (Approximate), Expires: 03/10/2025 [facility] Comment on above: Expected: 06/09/2024 (Approximate), Expires: 03/10/2025 Start: 06-09-2024 End: 03-10-2025 Comprehensive metabolic 2000 panel - Serum or Plasma COMPREHENSIVE METABOLIC PANEL Lab Routine Cancer of ampulla of Vater (HCC) Iron deficiency anemia secondary to inadequate dietary iron intake Anemia due to vitamin B12 deficiency, unspecified B12 deficiency type Expected: 06/09/2024 (Approximate), Expires: 03/10/2025 [facility] Comment on above: Expected: 06/09/2024 (Approximate), Expires: 03/10/2025 Start: 06-09-2024 End: 04-09-2025 CT Abdomen and Pelvis W contrast IV CT ABD/PEL W IVCON Radiology Routine Cancer of ampulla of Vater (HCC) Iron deficiency anemia secondary to inadequate dietary iron intake Anemia due to vitamin B12 deficiency, unspecified B12 deficiency type Expected: 06/09/2024 (Approximate), Expires: 04/09/2025 [facility] Work Phone: Comment on above: Expected: 06/09/2024 (Approximate), Expires: 04/09/2025 Start: 06-09-2024 End: 04-09-2025 CT Chest W contrast IV CT CHEST W IVCON Radiology Routine Cancer of ampulla of Vater (HCC) Iron deficiency anemia secondary to inadequate dietary iron intake Anemia due to vitamin B12 deficiency, unspecified B12 deficiency type Expected: 06/09/2024 (Approximate), Expires: 04/09/2025 [facility] Comment on above: Expected: 06/09/2024 (Approximate), Expires: 04/09/2025 Start: 06-09-2024 End: 03-10-2025 Ferritin [Mass/volume] in Serum or Plasma FERRITIN Lab Routine Cancer of ampulla of Vater (HCC) Iron deficiency anemia secondary to inadequate dietary iron intake Anemia due to vitamin B12 deficiency, unspecified B12 deficiency type Expected: 06/09/2024 (Approximate), Expires: 03/10/2025 [facility] Comment on above: Expected: 06/09/2024 (Approximate), Expires: 03/10/2025 Start: 06-09-2024 End: 03-10-2025 Folate [Mass/volume] in Serum or Plasma FOLATE, SERUM Lab Routine Cancer of ampulla of Vater (HCC) Iron deficiency anemia secondary to inadequate dietary iron intake Anemia due to vitamin B12 deficiency, unspecified B12 deficiency type Expected: 06/09/2024 (Approximate), Expires: 03/10/2025 [facility] Comment on above: Expected: 06/09/2024 (Approximate), Expires: 03/10/2025 Start: 06-09-2024 End: 03-10-2025 Iron and Iron binding capacity panel - Serum or Plasma IRON AND TIBC Lab Routine Cancer of ampulla of Vater (HCC) Iron deficiency anemia secondary to inadequate dietary iron intake Anemia due to vitamin B12 deficiency, unspecified B12 deficiency type Expected: 06/09/2024 (Approximate), Expires: 03/10/2025 [facility] Comment on above: Expected: 06/09/2024 (Approximate), Expires: 03/10/2025 Start: 06-09-2024 End: 06-09-2024 Patient encounter procedure 06/09/2024 1:45 PM EST Appointment Radiology Pet CT [address] [place] [address] ct cap w Radiology Pet CT Comment on above: ct cap w Start: 05-25-2024 End: 05-25-2024 Nursing evaluation of patient and report 05/25/2024 2:45 PM EST Nurse Visit Hematology/Oncology [address] [place] [address] Melani Hart Nurse Zelalem [address] [place] [address] CAP with contrast lab and B 12 inj(sent Msg to Chris) Hematology/Oncology Comment on above: [address] CAP with contrast lab and B 12 inj(sent Msg to Chris) Start: 04-28-2024 End: 04-28-2024 Nursing evaluation of patient and report 04/28/2024 2:45 PM EDT Nurse Visit Hematology/Oncology [address] [place] [address] Melani Hart Nurse Zelalem [address] [place] [address] CAP with contrast lab and B 12 inj(sent Msg to Chris) Hematology/Oncology Comment on above: [address] CAP with contrast lab and B 12 inj(sent Msg to Chris) Start: 03-31-2024 End: 03-31-2024 Nursing evaluation of patient and report 03/31/2024 2:30 PM EDT Nurse Visit Hematology/Oncology [address] [place] [address] Melani Hart Nurse Zelalem [address] [place] [address] CAP with contrast lab and B 12 inj(sent Msg to Chris) Hematology/Oncology Comment on above: [address] CAP with contrast lab and B 12 inj(sent Msg to Chris) Start: 03-10-2024 End: 03-10-2024 Follow-up encounter 03/10/2024 2:30 PM EDT Visit (SP) Office Hematology/Oncology [address] [place] [address] Zahra May MD [address] [place] [address] and lab Hematology/Oncology Comment on above: follow up after ct a nd lab Start: 03-04-2024 End: 06-03-2024 Cancer Ag 19-9 [Units/volume] in Serum or Plasma CA 19-9 Lab Routine Iron deficiency anemia secondary to inadequate dietary iron intake Cancer of ampulla of Vater (HCC) Anemia due to vitamin B12 deficiency, unspecified B12 deficiency type Expected: 03/04/2024 (Approximate), Expires: 06/03/2024 [facility] Comment on above: Expected: 03/04/2024 (Approximate), Expires: 06/03/2024 Start: 03-04-2024 End: 12-02-2024 CBC W Auto Differential panel - Blood COMPLETE BLOOD COUNT AND DIFFERENTIAL Lab Routine Iron deficiency anemia secondary to inadequate dietary iron intake Cancer of ampulla of Vater (HCC) Anemia due to vitamin B12 deficiency, unspecified B12 deficiency type Expected: 03/04/2024 (Approximate), Expires: 12/02/2024 [facility] Comment on above: Expected: 03/04/2024 (Approximate), Expires: 12/02/2024 Start: 03-04-2024 End: 12-02-2024 Cobalamin (Vitamin B12) [Mass/volume] in Serum or Plasma VITAMIN B12 Lab Routine Iron deficiency anemia secondary to inadequate dietary iron intake Cancer of ampulla of Vater (HCC) Anemia due to vitamin B12 deficiency, unspecified B12 deficiency type Expected: 03/04/2024 (Approximate), Expires: 12/02/2024 [facility] Comment on above: Expected: 03/04/2024 (Approximate), Expires: 12/02/2024 Start: 03-04-2024 End: 12-02-2024 Comprehensive metabolic 2000 panel - Serum or Plasma COMPREHENSIVE METABOLIC PANEL Lab Routine Iron deficiency anemia secondary to inadequate dietary iron intake Cancer of ampulla of Vater (HCC) Anemia due to vitamin B12 deficiency, unspecified B12 deficiency type Expected: 03/04/2024 (Approximate), Expires: 12/02/2024 [facility] Comment on above: Expected: 03/04/2024 (Approximate), Expires: 12/02/2024 Start: 03-04-2024 End: 01-01-2025 CT Abdomen and Pelvis W contrast IV CT ABD/PEL W IVCON Radiology Routine Iron deficiency anemia secondary to inadequate dietary iron intake Cancer of ampulla of Vater (HCC) Anemia due to vitamin B12 deficiency, unspecified B12 deficiency type Expected: 03/04/2024 (Approximate), Expires: 01/01/2025 [facility] Work Phone: Comment on above: Expected: 03/04/2024 (Approximate), Expires: 01/01/2025 Start: 03-04-2024 End: 01-01-2025 CT Chest W contrast IV CT CHEST W IVCON Radiology Routine Iron deficiency anemia secondary to inadequate dietary iron intake Cancer of ampulla of Vater (HCC) Anemia due to vitamin B12 deficiency, unspecified B12 deficiency type Expected: 03/04/2024 (Approximate), Expires: 01/01/2025 [facility] Comment on above: Expected: 03/04/2024 (Approximate), Expires: 01/01/2025 Start: 03-04-2024 End: 12-02-2024 Ferritin [Mass/volume] in Serum or Plasma FERRITIN Lab Routine Iron deficiency anemia secondary to inadequate dietary iron intake Cancer of ampulla of Vater (HCC) Anemia due to vitamin B12 deficiency, unspecified B12 deficiency type Expected: 03/04/2024 (Approximate), Expires: 12/02/2024 [facility] Comment on above: Expected: 03/04/2024 (Approximate), Expires: 12/02/2024 Start: 03-04-2024 End: 12-02-2024 Folate [Mass/volume] in Serum or Plasma FOLATE, SERUM Lab Routine Iron deficiency anemia secondary to inadequate dietary iron intake Cancer of ampulla of Vater (HCC) Anemia due to vitamin B12 deficiency, unspecified B12 deficiency type Expected: 03/04/2024 (Approximate), Expires: 12/02/2024 [facility] Comment on above: Expected: 03/04/2024 (Approximate), Expires: 12/02/2024 Start: 03-04-2024 End: 12-02-2024 Iron and Iron binding capacity panel - Serum or Plasma IRON AND TIBC Lab Routine Iron deficiency anemia secondary to inadequate dietary iron intake Cancer of ampulla of Vater (HCC) Anemia due to vitamin B12 deficiency, unspecified B12 deficiency type Expected: 03/04/2024 (Approximate), Expires: 12/02/2024 [facility] Comment on above: Expected: 03/04/2024 (Approximate), Expires: 12/02/2024 Start: 03-03-2024 End: 03-03-2024 Nursing evaluation of patient and report 03/03/2024 2:00 PM EDT Nurse Visit Hematology/Oncology [address] [place] [address] [place] [address] Melani Hart Nurse Zelalem [address] [place] [address] CAP with contrast lab and B 12 inj Hematology/Oncology Comment on above: [address] CAP with contrast lab and B 12 inj Start: 03-03-2024 End: 03-03-2024 Patient encounter procedure 03/03/2024 12:15 PM EDT Appointment Radiology Pet CT [address] [place] [address] CAP with contrast lab and B [address] Comment on above: [address] CAP with contrast lab and B 12 inj Start: 02-28-2024 Covid-19 Vaccine ( season) Covid-19 Vaccine ( season) [facility] Start: 02-28-2024 Covid-19 Vaccine ( season) Covid-19 Vaccine ( season) [facility] Start: 02-28-2024 Influenza vaccination [facility] Start: 01-29-2024 End: 01-29-2024 Nursing evaluation of patient and report 01/29/2024 2:30 PM EDT Nurse Visit Hematology/Oncology [address] [place] [address] Melani Hart Nurse Zelalem [address] [place] [address] B 12 q 4 weeks Hematology/Oncology Comment on above: B 12 q 4 weeks Start: 01-01-2024 End: 01-01-2024 Nursing evaluation of patient and report 01/01/2024 2:30 PM EDT Nurse Visit Hematology/Oncology [address] [place] [address] Melani Hart Nurse Zelalem [address] [place] [address] B 12 q 4 weeks Hematology/Oncology Comment on above: B 12 q 4 weeks Start: 12-03-2023 End: 12-03-2023 Nursing evaluation of patient and report 12/03/2023 3:15 PM EDT Nurse Visit Hematology/Oncology [address] [place] [address] Melani Hart Nurse Zelalem [address] [place] [address] 3 month follow up with lab and B 12 inj Hematology/Oncology Comment on above: 3 month follow up wi th lab and B 12 inj Start: 12-03-2023 End: 12-03-2023 Follow-up encounter 12/03/2023 3:00 PM EDT Visit (SP) Office Hematology/Oncology [address] [place] [address] Zahra May MD [address] [place] [address] 3 month follow up with lab and B 12 inj Hematology/Oncology Comment on above: 3 month follow up wi th lab and B 12 inj Start: 12-03-2023 End: 12-03-2023 Patient encounter procedure 12/03/2023 2:45 PM EDT Office Visit [facility] [address] [place] [address] 3 month follow up with lab and B 12 inj [facility] Comment on above: 3 month follow up wi th lab and B 12 inj Start: 11-22-2023 COVID-19 Vaccine ( season) COVID-19 Vaccine ( season) [facility] Start: 09-17-2023 FUV, Provider: Irving Abreu, Status: Cosme, Time: 10:50 AM FUV, Provider: Irving Abreu, Status: Cosme, Time: 10:50 AM -[facility] 250 DO Work Phone: Start: 06-29-2023 Advance Directive Discussion Advance Directive Discussion [facility] Start: 06-29-2023 Behavioral Health Screening Behavioral Health Screening [facility] Start: 06-29-2023 End: 08-29-2023 Cancer Ag 19-9 [Units/volume] in Serum or Plasma CA 19-9 BLD Lab Routine Cancer of ampulla of Vater (HCC) Anemia due to vitamin B12 deficiency, unspecified B12 deficiency type Severe protein-calorie malnutrition (HCC) Expected: 06/29/2023 (Approximate), Expires: 08/29/2023 [facility] Work Phone: Comment on above: Expected: 06/29/2023 (Approximate), Expires: 08/29/2023 Start: 06-29-2023 End: 03-16-2024 CBC W Auto Differential panel - Blood CBC + DIFF Lab Routine Cancer of ampulla of Vater (HCC) Anemia due to vitamin B12 deficiency, unspecified B12 deficiency type Severe protein-calorie malnutrition (HCC) Expected: 06/29/2023 (Approximate), Expires: 03/16/2024 [facility] Work Phone: Comment on above: Expected: 06/29/2023 (Approximate), Expires: 03/16/2024 Start: 06-29-2023 End: 03-16-2024 Cobalamin (Vitamin B12) [Mass/volume] in Serum or Plasma VITAMIN B12 BLOOD Lab Routine Cancer of ampulla of Vater (HCC) Anemia due to vitamin B12 deficiency, unspecified B12 deficiency type Severe protein-calorie malnutrition (HCC) Expected: 06/29/2023 (Approximate), Expires: 03/16/2024 [facility] Work Phone: Comment on above: Expected: 06/29/2023 (Approximate), Expires: 03/16/2024 Start: 06-29-2023 End: 03-16-2024 Comprehensive metabolic 2000 panel - Serum or Plasma COMP METABOLIC PANEL Lab Routine Cancer of ampulla of Vater (HCC) Anemia due to vitamin B12 deficiency, unspecified B12 deficiency type Severe protein-calorie malnutrition (HCC) Expected: 06/29/2023 (Approximate), Expires: 03/16/2024 [facility] Work Phone: Comment on above: Expected: 06/29/2023 (Approximate), Expires: 03/16/2024 Start: 06-29-2023 End: 04-14-2024 Ct abdomen & pelvis w/contrast material CT ABD/PEL W IVCON Radiology Routine Cancer of ampulla of Vater (HCC) Anemia due to vitamin B12 deficiency, unspecified B12 deficiency type Severe protein-calorie malnutrition (HCC) Expected: 06/29/2023 (Approximate), Expires: 04/14/2024 [facility] Work Phone: Comment on above: Expected: 06/29/2023 (Approximate), Expires: 04/14/2024 Start: 06-29-2023 End: 04-14-2024 CT CHEST W IVCON CT CHEST W IVCON Radiology Routine Cancer of ampulla of Vater (HCC) Anemia due to vitamin B12 deficiency, unspecified B12 deficiency type Severe protein-calorie malnutrition (HCC) Expected: 06/29/2023 (Approximate), Expires: 04/14/2024 [facility] Work Phone: Comment on above: Expected: 06/29/2023 (Approximate), Expires: 04/14/2024 Start: 06-29-2023 Depression Assessment Depression Ass essment [facility] Start: 06-29-2023 End: 03-16-2024 Ferritin [Mass/volume] in Serum or Plasma FERRITIN BLD Lab Routine Cancer of ampulla of Vater (HCC) Anemia due to vitamin B12 deficiency, unspecified B12 deficiency type Severe protein-calorie malnutrition (HCC) Expected: 06/29/2023 (Approximate), Expires: 03/16/2024 [facility] Work Phone: Comment on above: Expected: 06/29/2023 (Approximate), Expires: 03/16/2024 Start: 06-29-2023 End: 03-16-2024 Folate [Mass/volume] in Serum or Plasma FOLATE SERUM Lab Routine Cancer of ampulla of Vater (HCC) Anemia due to vitamin B12 deficiency, unspecified B12 deficiency type Severe protein-calorie malnutrition (HCC) Expected: 06/29/2023 (Approximate), Expires: 03/16/2024 [facility] Work Phone: Comment on above: Expected: 06/29/2023 (Approximate), Expires: 03/16/2024 Start: 06-29-2023 End: 03-16-2024 Iron and Iron binding capacity panel - Serum or Plasma IRON + TIBC Lab Routine Cancer of ampulla of Vater (HCC) Anemia due to vitamin B12 deficiency, unspecified B12 deficiency type Severe protein-calorie malnutrition (HCC) Expected: 06/29/2023 (Approximate), Expires: 03/16/2024 [facility] Work Phone: Comment on above: Expected: 06/29/2023 (Approximate), Expires: 03/16/2024 Start: 03-11-2023 End: 05-11-2023 Cancer Ag 19-9 [Units/volume] in Serum or Plasma CA 19-9 BLD Lab Routine Cancer of ampulla of Vater (HCC) Expected: 03/11/2023 (Approximate), Expires: 05/11/2023 [facility] Work Phone: Comment on above: Expected: 03/11/2023 (Approximate), Expires: 05/11/2023 Start: 03-11-2023 End: 03-05-2024 CBC W Auto Differential panel - Blood CBC + DIFF Lab Routine Cancer of ampulla of Vater (HCC) Expected: 03/11/2023 (Approximate), Expires: 03/05/2024 [facility] Work Phone: Comment on above: Expected: 03/11/2023 (Approximate), Expires: 03/05/2024 Start: 03-11-2023 End: 03-05-2024 Cobalamin (Vitamin B12) [Mass/volume] in Serum or Plasma VITAMIN B12 BLOOD Lab Routine Cancer of ampulla of Vater (HCC) Expected: 03/11/2023 (Approximate), Expires: 03/05/2024 [facility] Work Phone: Comment on above: Expected: 03/11/2023 (Approximate), Expires: 03/05/2024 Start: 03-11-2023 End: 03-05-2024 Comprehensive metabolic 2000 panel - Serum or Plasma COMP METABOLIC PANEL Lab Routine Cancer of ampulla of Vater (HCC) Expected: 03/11/2023 (Approximate), Expires: 03/05/2024 [facility] Work Phone: Comment on above: Expected: 03/11/2023 (Approximate), Expires: 03/05/2024 Start: 03-11-2023 End: 03-05-2024 Ferritin [Mass/volume] in Serum or Plasma FERRITIN BLD Lab Routine Cancer of ampulla of Vater (HCC) Expected: 03/11/2023 (Approximate), Expires: 03/05/2024 [facility] Work Phone: Comment on above: Expected: 03/11/2023 (Approximate), Expires: 03/05/2024 Start: 03-11-2023 End: 03-05-2024 Folate [Mass/volume] in Serum or Plasma FOLATE SERUM Lab Routine Cancer of ampulla of Vater (HCC) Expected: 03/11/2023 (Approximate), Expires: 03/05/2024 [facility] Work Phone: Comment on above: Expected: 03/11/2023 (Approximate), Expires: 03/05/2024 Start: 03-11-2023 End: 03-05-2024 Iron and Iron binding capacity panel - Serum or Plasma IRON + TIBC Lab Routine Cancer of ampulla of Vater (HCC) Expected: 03/11/2023 (Approximate), Expires: 03/05/2024 [facility] Work Phone: Comment on above: Expected: 03/11/2023 (Approximate), Expires: 03/05/2024 Start: 03-05-2023 End: 03-20-[address] attenuation skull base mid-thigh NM PET/CT SKULL-THIGH INITIAL Radiology Routine Cancer of ampulla of Vater (HCC) Expected: 03/05/2023 (Approximate), Expires: 03/20/2024 [facility] Work Phone: Comment on above: Expected: 03/05/2023 (Approximate), Expires: 03/20/2024 Start: 02-27-2023 Covid-19 Vaccine () Covid-19 Vaccine () [facility] Start: 02-27-2023 Influenza vaccination C [facility] Start: 02-19-2023 End: 02-18-2024 CBC W Auto Differential panel - Blood CBC + DIFF Lab Routine Anemia due to vitamin B12 deficiency, unspecified B12 deficiency type Expected: 02/19/2023 (Approximate), Expires: 02/18/2024 [facility] Work Phone: Comment on above: Expected: 02/19/2023 (Approximate), Expires: 02/18/2024 Start: 02-19-2023 End: 02-18-2024 Cobalamin (Vitamin B12) [Mass/volume] in Serum or Plasma VITAMIN B12 BLOOD Lab Routine Anemia due to vitamin B12 deficiency, unspecified B12 deficiency type Expected: 02/19/2023 (Approximate), Expires: 02/18/2024 [facility] Work Phone: Comment on above: Expected: 02/19/2023 (Approximate), Expires: 02/18/2024 Start: 02-19-2023 End: 02-18-2024 Comprehensive metabolic 2000 panel - Serum or Plasma COMP METABOLIC PANEL Lab Routine Anemia due to vitamin B12 deficiency, unspecified B12 deficiency type Expected: 02/19/2023 (Approximate), Expires: 02/18/2024 [facility] Work Phone: Comment on above: Expected: 02/19/2023 (Approximate), Expires: 02/18/2024 Start: 02-19-2023 End: 02-18-2024 Ferritin [Mass/volume] in Serum or Plasma FERRITIN BLD Lab Routine Anemia due to vitamin B12 deficiency, unspecified B12 deficiency type Expected: 02/19/2023 (Approximate), Expires: 02/18/2024 [facility] Work Phone: Comment on above: Expected: 02/19/2023 (Approximate), Expires: 02/18/2024 Start: 02-19-2023 End: 02-18-2024 Folate [Mass/volume] in Serum or Plasma FOLATE SERUM Lab Routine Anemia due to vitamin B12 deficiency, unspecified B12 deficiency type Expected: 02/19/2023 (Approximate), Expires: 02/18/2024 [facility] Work Phone: Comment on above: Expected: 02/19/2023 (Approximate), Expires: 02/18/2024 Start: 02-19-2023 End: 02-18-2024 Iron and Iron binding capacity panel - Serum or Plasma IRON + TIBC Lab Routine Anemia due to vitamin B12 deficiency, unspecified B12 deficiency type Expected: 02/19/2023 (Approximate), Expires: 02/18/2024 [facility] Work Phone: Comment on above: Expected: 02/19/2023 (Approximate), Expires: 02/18/2024 Start: 01-27-2023 Insulin C-peptide measurement [facility] Start: 01-07-2023 FUV, Provider: Irving Abreu, Status: Cosme, Time: 10:20 AM FUV, Provider: Irving Abreu, Status: Cosme, Time: 10:20 AM -[place] [address] DO Work Phone: Start: 08-14-2022 Pneumococcal Vaccine : 65+ (3 - PPSV23 or PCV20) Pneumococcal Vaccine: 65+ (3 - PPSV23 or PCV20) [facility] Start: 08-14-2022 Pneumococcal Vaccine : 65+ (3 of 3 - PPSV23 or PCV20) Pneumococcal Vaccine: 65+ (3 of 3 - PPSV23 or PCV20) [facility] Start: 08-14-2022 PNEUMOCOCCAL: 65+ (#3) PNEUMOCOCCAL: 65+ (#3) [facility] Start: 08-14-2022 PNEUMOCOCCAL: 65+ (3 - PPSV23 if available, else PCV20) PNEUMOCOCCAL: 65+ (3 - PPSV23 if available, else PCV20) [facility] Start: 08-14-2022 PNEUMOCOCCAL: 65+ (3 - PPSV23 or PCV20) PNEUMOCOCCAL: 65+ (3 - PPSV23 or PCV20) [facility] Start: 07-04-2022 End: 09-03-2022 Cancer Ag 19-9 [Units/volume] in Serum or Plasma CA 19-9 BLD Lab Routine Cancer of ampulla of Vater (HCC) Expected: 07/04/2022 (Approximate), Expires: 09/03/2022 [facility] Work Phone: Comment on above: Expected: 07/04/2022 (Approximate), Expires: 09/03/2022 Start: 07-04-2022 End: 06-06-2023 CBC W Auto Differential panel - Blood CBC + DIFF Lab Routine Anemia due to vitamin B12 deficiency, unspecified B12 deficiency type Expected: 07/04/2022 (Approximate), Expires: 06/06/2023 [facility] Work Phone: Comment on above: Expected: 07/04/2022 (Approximate), Expires: 06/06/2023 Start: 07-04-2022 End: 06-06-2023 Cobalamin (Vitamin B12) [Mass/volume] in Serum or Plasma VITAMIN B12 BLOOD Lab Routine Anemia due to vitamin B12 deficiency, unspecified B12 deficiency type Expected: 07/04/2022 (Approximate), Expires: 06/06/2023 [facility] Work Phone: Comment on above: Expected: 07/04/2022 (Approximate), Expires: 06/06/2023 Start: 07-04-2022 End: 06-06-2023 Comprehensive metabolic 2000 panel - Serum or Plasma COMP METABOLIC PANEL Lab Routine Anemia due to vitamin B12 deficiency, unspecified B12 deficiency type Expected: 07/04/2022 (Approximate), Expires: 06/06/2023 [facility] Work Phone: Comment on above: Expected: 07/04/2022 (Approximate), Expires: 06/06/2023 Start: 07-04-2022 End: 07-06-2023 Ct abdomen & pelvis w/contrast material CT ABD/PEL W IVCON Radiology Routine Interstitial pulmonary disease (HCC) Cancer of ampulla of Vater (HCC) Anemia due to vitamin B12 deficiency, unspecified B12 deficiency type Expected: 07/04/2022 (Approximate), Expires: 07/06/2023 [facility] Work Phone: Comment on above: Expected: 07/04/2022 (Approximate), Expires: 07/06/2023 Start: 07-04-2022 End: 07-06-2023 CT CHEST W IVCON CT CHEST W IVCON Radiology Routine Interstitial pulmonary disease (HCC) Cancer of ampulla of Vater (HCC) Anemia due to vitamin B12 deficiency, unspecified B12 deficiency type Expected: 07/04/2022 (Approximate), Expires: 07/06/2023 [facility] Work Phone: Comment on above: Expected: 07/04/2022 (Approximate), Expires: 07/06/2023 Start: 07-04-2022 DIABETES SCREEN DIABETES SCREEN [facility] Start: 07-04-2022 End: 06-06-2023 Ferritin [Mass/volume] in Serum or Plasma FERRITIN BLD Lab Routine Anemia due to vitamin B12 deficiency, unspecified B12 deficiency type Expected: 07/04/2022 (Approximate), Expires: 06/06/2023 [facility] Work Phone: Comment on above: Expected: 07/04/2022 (Approximate), Expires: 06/06/2023 Start: 07-04-2022 End: 06-06-2023 Folate [Mass/volume] in Serum or Plasma FOLATE SERUM Lab Routine Anemia due to vitamin B12 deficiency, unspecified B12 deficiency type Expected: 07/04/2022 (Approximate), Expires: 06/06/2023 [facility] Work Phone: Comment on above: Expected: 07/04/2022 (Approximate), Expires: 06/06/2023 Start: 07-04-2022 End: 06-06-2023 Iron and Iron binding capacity panel - Serum or Plasma IRON + TIBC Lab Routine Anemia due to vitamin B12 deficiency, unspecified B12 deficiency type Expected: 07/04/2022 (Approximate), Expires: 06/06/2023 [facility] Work Phone: Comment on above: Expected: 07/04/2022 (Approximate), Expires: 06/06/2023 Start: 06-29-2022 ADVANCE DIRECTIVE DISCUSSION ADVANCE DIRECTIVE DISCUSSION [facility] Start: 06-29-2022 DEPRESSION ASSESSMENT DEPRESSION ASS ESSMENT [facility] Start: 2022 Abdominal aortic ane urysm screening Abdominal Aortic Aneurysm (AAA) Screening [facility] Start: 2022 ADVANCE DIRECTIVE DISCUSSION ADVANCE DIRECTIVE DISCUSSION [facility] Start: 2022 Fall Risk Screening Fall Risk Screen [facility] [employer] [facility] Start: 05-08-2022 End: 04-10-2023 CBC W Auto Differential panel - Blood CBC + DIFF Lab Routine Iron deficiency anemia, unspecified iron deficiency anemia type Anemia due to vitamin B12 deficiency, unspecified B12 deficiency type Expected: 05/08/2022 (Approximate), Expires: 04/10/2023 [facility] Work Phone: Comment on above: Expected: 05/08/2022 (Approximate), Expires: 04/10/2023 Start: 05-08-2022 End: 04-10-2023 Cobalamin (Vitamin B12) [Mass/volume] in Serum or Plasma VITAMIN B12 BLOOD Lab Routine Iron deficiency anemia, unspecified iron deficiency anemia type Anemia due to vitamin B12 deficiency, unspecified B12 deficiency type Expected: 05/08/2022 (Approximate), Expires: 04/10/2023 [facility] Work Phone: Comment on above: Expected: 05/08/2022 (Approximate), Expires: 04/10/2023 Start: 05-08-2022 End: 04-10-2023 Comprehensive metabolic 2000 panel - Serum or Plasma COMP METABOLIC PANEL Lab Routine Iron deficiency anemia, unspecified iron deficiency anemia type Anemia due to vitamin B12 deficiency, unspecified B12 deficiency type Expected: 05/08/2022 (Approximate), Expires: 04/10/2023 [facility] Work Phone: Comment on above: Expected: 05/08/2022 (Approximate), Expires: 04/10/2023 Start: 05-08-2022 End: 04-10-2023 Ferritin [Mass/volume] in Serum or Plasma FERRITIN BLD Lab Routine Iron deficiency anemia, unspecified iron deficiency anemia type Anemia due to vitamin B12 deficiency, unspecified B12 deficiency type Expected: 05/08/2022 (Approximate), Expires: 04/10/2023 [facility] Work Phone: Comment on above: Expected: 05/08/2022 (Approximate), Expires: 04/10/2023 Start: 05-08-2022 End: 04-10-2023 Folate [Mass/volume] in Serum or Plasma FOLATE SERUM Lab Routine Iron deficiency anemia, unspecified iron deficiency anemia type Anemia due to vitamin B12 deficiency, unspecified B12 deficiency type Expected: 05/08/2022 (Approximate), Expires: 04/10/2023 [facility] Work Phone: Comment on above: Expected: 05/08/2022 (Approximate), Expires: 04/10/2023 Start: 05-08-2022 End: 04-10-2023 Iron and Iron binding capacity panel - Serum or Plasma IRON + TIBC Lab Routine Iron deficiency anemia, unspecified iron deficiency anemia type Anemia due to vitamin B12 deficiency, unspecified B12 deficiency type Expected: 05/08/2022 (Approximate), Expires: 04/10/2023 [facility] Work Phone: Comment on above: Expected: 05/08/2022 (Approximate), Expires: 04/10/2023 Start: 04-10-2022 End: 04-10-2023 CBC W Auto Differential panel - Blood CBC + DIFF Lab Routine Iron deficiency anemia, unspecified iron deficiency anemia type Anemia due to vitamin B12 deficiency, unspecified B12 deficiency type Macrocytosis Expected: 04/10/2022, Expires: 04/10/2023 [facility] Work Phone: Comment on above: Expected: 04/10/2022 , Expires: 04/10/2023 Start: 04-10-2022 End: 04-10-2023 Cobalamin (Vitamin B12) [Mass/volume] in Serum or Plasma VITAMIN B12 BLOOD Lab Routine Iron deficiency anemia, unspecified iron deficiency anemia type Anemia due to vitamin B12 deficiency, unspecified B12 deficiency type Macrocytosis Expected: 04/10/2022, Expires: 04/10/2023 [facility] Work Phone: Comment on above: Expected: 04/10/2022 , Expires: 04/10/2023 Start: 04-10-2022 End: 04-10-2023 Comprehensive metabolic 2000 panel - Serum or Plasma COMP METABOLIC PANEL Lab Routine Iron deficiency anemia, unspecified iron deficiency anemia type Anemia due to vitamin B12 deficiency, unspecified B12 deficiency type Macrocytosis Expected: 04/10/2022, Expires: 04/10/2023 [facility] Work Phone: Comment on above: Expected: 04/10/2022 , Expires: 04/10/2023 Start: 04-10-2022 End: 04-10-2023 Ferritin [Mass/volume] in Serum or Plasma FERRITIN BLD Lab Routine Iron deficiency anemia, unspecified iron deficiency anemia type Anemia due to vitamin B12 deficiency, unspecified B12 deficiency type Macrocytosis Expected: 04/10/2022, Expires: 04/10/2023 [facility] Work Phone: Comment on above: Expected: 04/10/2022 , Expires: 04/10/2023 Start: 04-10-2022 End: 04-10-2023 Folate [Mass/volume] in Serum or Plasma FOLATE SERUM Lab Routine Iron deficiency anemia, unspecified iron deficiency anemia type Anemia due to vitamin B12 deficiency, unspecified B12 deficiency type Macrocytosis Expected: 04/10/2022, Expires: 04/10/2023 [facility] Work Phone: Comment on above: Expected: 04/10/2022 , Expires: 04/10/2023 Start: 04-10-2022 End: 06-10-2022 Haptoglobin [Mass/volume] in Serum or Plasma HAPTOGLOBIN BLD Lab Routine Iron deficiency anemia, unspecified iron deficiency anemia type Anemia due to vitamin B12 deficiency, unspecified B12 deficiency type Macrocytosis Expected: 04/10/2022, Expires: 06/10/2022 [facility] Work Phone: Comment on above: Expected: 04/10/2022 , Expires: 06/10/2022 Start: 04-10-2022 End: 04-10-2023 Iron and Iron binding capacity panel - Serum or Plasma IRON + TIBC Lab Routine Iron deficiency anemia, unspecified iron deficiency anemia type Anemia due to vitamin B12 deficiency, unspecified B12 deficiency type Macrocytosis Expected: 04/10/2022, Expires: 04/10/2023 [facility] Work Phone: Comment on above: Expected: 04/10/2022 , Expires: 04/10/2023 Start: 04-10-2022 End: 06-10-2022 Lactate dehydrogenase [Enzymatic activity/volume] in Serum or Plasma LD LACTATE DEHYDRO Lab Routine Iron deficiency anemia, unspecified iron deficiency anemia type Anemia due to vitamin B12 deficiency, unspecified B12 deficiency type Macrocytosis Expected: 04/10/2022, Expires: 06/10/2022 [facility] Work Phone: Comment on above: Expected: 04/10/2022 , Expires: 06/10/2022 Start: 04-10-2022 End: 06-10-2022 RETIC COUNT RETIC COUNT Lab Routine Iron deficiency anemia, unspecified iron deficiency anemia type Anemia due to vitamin B12 deficiency, unspecified B12 deficiency type Macrocytosis Expected: 04/10/2022, Expires: 06/10/2022 [facility] Work Phone: Comment on above: Expected: 04/10/2022 , Expires: 06/10/2022 Start: 02-27-2022 Influenza vaccination [facility] Start: 02-04-2022 End: 04-06-2022 Cancer Ag 19-9 [Units/volume] in Serum or Plasma CA 19-9 BLD Lab Routine Iron deficiency anemia, unspecified iron deficiency anemia type 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) Expected: 02/04/2022 (Approximate), Expires: 04/06/2022 [facility] Work Phone: Comment on above: Expected: 02/04/2022 (Approximate), Expires: 04/06/2022 Start: 02-04-2022 End: 12-05-2022 Carcinoembryonic Ag [Mass/volume] in Serum or Plasma CEA BLD Lab Routine Iron deficiency anemia, unspecified iron deficiency anemia type 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) Malignant neoplasm of body of pancreas (HCC) Expected: 02/04/2022 (Approximate), Expires: 12/05/2022 [facility] Work Phone: Comment on above: Expected: 02/04/2022 (Approximate), Expires: 12/05/2022 Start: 02-04-2022 End: 12-05-2022 CBC W Auto Differential panel - Blood CBC + DIFF Lab Routine Iron deficiency anemia, unspecified iron deficiency anemia type 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) Expected: 02/04/2022 (Approximate), Expires: 12/05/2022 [facility] Work Phone: Comment on above: Expected: 02/04/2022 (Approximate), Expires: 12/05/2022 Start: 02-04-2022 End: 12-05-2022 Comprehensive metabolic 2000 panel - Serum or Plasma COMP METABOLIC PANEL Lab Routine Iron deficiency anemia, unspecified iron deficiency anemia type 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) Expected: 02/04/2022 (Approximate), Expires: 12/05/2022 [facility] Work Phone: Comment on above: Expected: 02/04/2022 (Approximate), Expires: 12/05/2022 Start: 02-04-2022 End: 01-04-2023 Ct abdomen & pelvis w/contrast material CT ABD/PEL W IVCON Radiology Routine Iron deficiency anemia, unspecified iron deficiency anemia type 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) Expected: 02/04/2022 (Approximate), Expires: 01/04/2023 [facility] Work Phone: Comment on above: Expected: 02/04/2022 (Approximate), Expires: 01/04/2023 Start: 02-04-2022 End: 01-04-2023 Ct thorax w/contrast material CT CHEST W IVCON Radiology Routine Iron deficiency anemia, unspecified iron deficiency anemia type 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) Expected: 02/04/2022 (Approximate), Expires: 01/04/2023 [facility] Work Phone: Comment on above: Expected: 02/04/2022 (Approximate), Expires: 01/04/2023 Start: 01-09-2022 FUV, Provider: Irving Abreu, Status: Pen, Time: 11:15 AM FUV, Provider: Irving Abreu, Status: Pen, Time: 11:15 AM [facility] 250 DO Work Phone: Start: 11-14-2021 COVID-19 VACCINE (4 - Booster for Pfizer series) COVID-19 VACCINE (4 - Booster for Pfizer series) [facility] Start: 09-11-2021 COVID-19 VACCINE (4 - Booster for Pfizer series) COVID-19 VACCINE (4 - Booster for Pfizer series) [facility] Start: 09-11-2021 COVID-19 VACCINE (4 - Pfizer series) COVID-19 VACCINE (4 - Pfizer series) [facility] Start: 06-29-2021 DEPRESSION ASSESSMENT DEPRESSION ASS ESSMENT [facility] Start: 12-11-2020 Adult depression scr eening assessment DEPRESSION SCREENING [facility] Start: 08-14-2018 PNEUMOCOCCAL (2 - PCV) PNEUMOCOCCAL (2 - PCV) [facility] Start: 2017 RSV patient s and/or patients aged 60+ years (1 - 1-dose 60+ series) RSV patients and/or patients aged 60+ years (1 - 1-dose 60+ series) [facility] Start: 2017 RSV Vaccine (1 - 1-d ose 60+ series) RSV Vaccine (1 - 1-dose 60+ series) [facility] Start: 2017 RSV Vaccine (1 - Ris k 60-74 years 1-dose series) RSV Vaccine (1 - Risk 60-74 years 1-dose series) [facility] Start: 2012 PROSTATE CANCER SCRE ENING DISCUSSION PROSTATE CANCER SCREENING DISCUSSION [facility] Start: 2007 SHINGRIX VACCINE (1 of 2) URBINA GRIX VACCINE (1 of 2) [facility] Start: 2007 Zoster Vaccines (1 of 2) Zoste r Vaccines (1 of 2) [facility] Start: 2002 COLOGUARD (FIT-DNA) COLOGUARD (FIT-D NA) [facility] Start: 2002 Colonoscopy COLONOSCOPY [facility] Start: 2002 COLORECTAL CANCER SCREENING COLORECTAL CANCER SCREENING [facility] Start: [address] COL[facility]OGR[facility] Start: 2002 FECAL OCCULT BLOOD FECAL OCCULT BLOO D [facility] Start: 2002 Screening for malign ant neoplasm of colon [facility] Start: 2002 SIGMOIDOSCOPY SIGMOIDOSCOPY [facility] Start: 1992 Lipid 1996 panel - S brandi or Plasma Lipid Screening [facility] Start: 1992 Lipid panel Lipid Screening [facility] Start: 1992 LIPID SCREEN LIPID SCREEN [facility] Start: 1979 DTaP/Tdap/Td Vaccine s (1 - Tdap) DTaP/Tdap/Td Vaccines (1 - Tdap) [facility] Start: 1976 Administration of varicella zoster vaccine Zoster (Shingles) Vaccine (1 of 2) [facility] Start: 1976 DTaP,Tdap and Td Vac cines (1 - Tdap) DTaP,Tdap and Td Vaccines (1 - Tdap) [facility] Start: 1976 SHINGRIX VACCINE (1 of 2) URBINA GRIX VACCINE (1 of 2) [facility] Start: 1976 Urine microalbumin profile [facility] Start: 1976 Urine screening for protein Diabetes: Urine Protein Screening [facility] Start: 1975 Adult BMI Screening Adult BMI Screen ing [facility] Start: 1975 Anxiety Screening Anxiety Screening [facility] Start: 1975 Depression Screening Depression Scre ening [facility] Start: 1975 Hepatitis C screening Hepatitis C [facility] Start: 1975 HIV SCREENING HIV SCREENING [facility] Start: 1969 Depression Screening Depression Scre ening [facility] Start: 1969 Tobacco Screening Tobacco Screening [facility] Start: 1967 Diabetic foot examination Diabetes: Foot Exam [facility] Start: 1967 Glaucoma screening Diabetes: R etinopathy Screening [facility] Start: 1962 COVID-19 VACCINE (#1) COVID-19 VACCI NE (#1) [facility] Start: 1957 ABDOMINAL AORTIC ANE URYSM SCREENING ABDOMINAL AORTIC ANEURYSM SCREENING [facility] Start: 1957 Abdominal aortic ane urysm screening Abdominal Aortic Aneurysm Screening [facility] Start: 1957 Creatinine measurement Creatinine Le meli [facility] Start: 1957 Echocardiography Echocardiogram [facility] Start: 1957 Hemoglobin A1c measurement Miley betes: Hemoglobin A1C [facility] Start: 1957 Lipid panel Lipid Panel [facility] Start: 1957 Medicare Annual Well ness Visit [facility] Start: 1957 Potassium measurement Potassium Leve l [facility] Start: 1957 Screening for malign ant neoplasm of colon [facility] End: 03-10-2024 Cancer Ag 19-9 [Units/volume] in Serum or Plasma CA 19-9 BLD Lab Routine Cancer of ampulla of Vater (HCC) Anemia due to vitamin B12 deficiency, unspecified B12 deficiency type Iron deficiency anemia, unspecified iron deficiency anemia type Every 3 weeks for 18 Occurrences starting 03/11/2023 until 03/10/2024 [facility] Work Phone: Comment on above: Every 3 weeks for 18 Occurrences starting 03/11/2023 until 03/10/2024 End: 02-13-2023 CBC W Auto Differential panel - Blood CBC + DIFF Lab Routine Iron deficiency anemia, unspecified iron deficiency anemia type Macrocytosis Every other week for 20 Occurrences starting 02/13/2022 until 02/13/2023 [facility] Work Phone: Comment on above: Every [...] for 18 Occurrences starting 03/11/2023 until 03/10/2024 [facility] Work Phone: Comment on above: Every 3 weeks for 18 Occurrences starting 03/11/2023 until 03/10/2024 End: 02-13-2023 Cobalamin (Vitamin B12) [Mass/volume] in Serum or Plasma VITAMIN B12 BLOOD Lab Routine Iron deficiency anemia, unspecified iron deficiency anemia type Macrocytosis Every other week for 20 Occurrences starting 02/13/2022 until 02/13/2023 [facility] Work Phone: Comment on above: Every [...] for 18 Occurrences starting 03/11/2023 until 03/10/2024 [facility] Work Phone: Comment on above: Every 3 weeks for 18 Occurrences starting 03/11/2023 until 03/10/2024 End: 02-13-2023 Comprehensive metabolic 2000 panel - Serum or Plasma COMP METABOLIC PANEL Lab Routine Iron deficiency anemia, unspecified iron deficiency anemia type Macrocytosis Every other week for 20 Occurrences starting 02/13/2022 until 02/13/2023 [facility] Work Phone: Comment on above: Every [...] for 18 Occurrences starting 03/11/2023 until 03/10/2024 [facility] Work Phone: Comment on above: Every 3 weeks for 18 Occurrences starting 03/11/2023 until 03/10/2024 Comprehensive metabo lic 2000 panel - Serum or Plasma [facility] End: 07-16-2024 EGD / Colonoscopy EGD / [...] for 20 Occurrences starting 02/13/2022 until 02/13/2023 [facility] Work Phone: Comment on above: Every other week for 20 Occurrences starting 02/13/2022 until 02/13/2023 End: 03-10-2024 Ferritin [Mass/volume] in Serum or Plasma FERRITIN BLD Lab Routine Cancer of ampulla of Vater (HCC) Anemia due to vitamin B12 deficiency, unspecified B12 deficiency type Iron deficiency anemia, unspecified iron deficiency anemia type Every 3 weeks for 18 Occurrences starting 03/11/2023 until 03/10/2024 [facility] Work Phone: Comment on above: Every 3 weeks for 18 Occurrences starting 03/11/2023 until 03/10/2024 End: 02-13-2023 Folate [Mass/volume] in Serum or Plasma FOLATE SERUM Lab Routine Iron deficiency anemia, unspecified iron deficiency anemia type Macrocytosis Every other week for 20 Occurrences starting 02/13/2022 until 02/13/2023 [facility] Work Phone: Comment on above: Every other week for 20 Occurrences starting 02/13/2022 until 02/13/2023 End: 03-10-2024 Folate [Mass/volume] in Serum or Plasma FOLATE SERUM Lab Routine Cancer of ampulla of Vater (HCC) Anemia due to vitamin B12 deficiency, unspecified B12 deficiency type Iron deficiency anemia, unspecified iron deficiency anemia type Every 3 weeks for 18 Occurrences starting 03/11/2023 until 03/10/2024 [facility] Work Phone: Comment on above: Every 3 weeks for 18 Occurrences starting 03/11/2023 until 03/10/2024 End: 02-13-2023 Iron and Iron binding capacity panel - Serum or Plasma IRON + TIBC Lab Routine Iron deficiency anemia, unspecified iron deficiency anemia type Macrocytosis Every other week for 20 Occurrences starting 02/13/2022 until 02/13/2023 [facility] Work Phone: Comment on above: Every [...] for 18 Occurrences starting 03/11/2023 until 03/10/2024 [facility] Work Phone: Comment on above: Every 3 weeks for 18 Occurrences starting 03/11/2023 until 03/10/2024 Microalbumin [Mass/v olume] in Urine [facility] XR Cervical spine 5 Views [facility] Immunizations Immunization Date Immunization Notes Care Provider Fa cili 06-04-2023 influenza, high dose seasonal, preservative-free David Caputo Other [employer] Other 06-04-2023 influenza virus vaccine, unspecified formulation DO Rick Zapata Work Phone: [facility] 04-01-2022 Seasonal trivalent influenza vaccine, adjuvanted, preservative free Chair Phelan Work Phone: [facility] 04-01-2022 influenza virus vaccine, unspecified formulation Zhara May MD Work Phone: [facility] 07-17-2021 COVID-19 vaccine, ag e 12+ yr (PFIZER-BIONTECH - [place] TOP) Zahra May MD Work Phone: [facility] 04-04-2021 AS03 adjuvant [place] Work Phone: [facility] 04-04-2021 influenza virus vaccine, split virus (incl. purified surface antigen) David Caputo Other [employer] Other 04-04-2021 influenza virus vaccine, unspecified formulation DO Rick Zapata Work Phone: [facility] 04-04-2021 Seasonal trivalent influenza vaccine, adjuvanted, preservative free Zahra May MD Work Phone: [facility] 10-24-2020 COVID-19 vaccine, ag e 12+ yr (PFIZER-BIONTECH - PURPLE TOP) Zahra May MD Work Phone: [facility] 10-03-2020 COVID-19 vaccine, ag e 12+ yr (PFIZER-BIONTECH - PURPLE TOP) Zahra May MD Work Phone: [facility] 03-29-2020 influenza nasal, unspecified formulation Chair Zhane Work Phone: [facility] 03-29-2020 influenza virus vaccine, unspecified formulation David Caputo Work Phone: [facility] 250 DO Work Phone: 03-29-2020 influenza, seasonal, injectable Zahra May MD Work Phone: [facility] 03-22-2020 influenza virus vaccine, split virus (incl. purified surface antigen) David Caputo Other [employer] Other 03-22-2020 influenza virus vaccine, unspecified formulation DO Rick Zapata Work Phone: [facility] 03-22-2020 influenza, injectabl e, quadrivalent, contains preservative Zahra May MD Work Phone: [facility] 05-02-2019 influenza, injectabl e, quadrivalent, contains preservative Zahra May MD Work Phone: [facility] 03-29-2019 influenza nasal, unspecified formulation Chair Phelan Work Phone: [facility] 03-29-2019 influenza virus vaccine, unspecified formulation David Caputo Work Phone: [facility] 250 DO Work Phone: 03-29-2019 influenza, seasonal, injectable Zahra May MD Work Phone: [facility] 03-29-2018 influenza nasal, unspecified formulation Chair Phelan Work Phone: [facility] 03-29-2018 influenza virus vaccine, unspecified formulation David Caputo Work Phone: [facility] 250 DO Work Phone: 02-14-2018 influenza, injectabl e, quadrivalent, preservative free Zahra May MD Work Phone: [facility] 09-02-2017 tuberculin skin test ; unspecified formulation Dr. Adriane Lunamir [facility] 09-01-2017 influenza, high-dose seasonal, quadrivalent, 0.7mL dose, preservative free Dr. Adriane Espitia [facility] 09-01-[address] Adriane Espitia [facility] 08-14-2017 pneumococcal polysaccharide vaccine, 23 valent Zahra May MD Work Phone: [facility] Work Phone: 04-22-2017 influenza virus vaccine, split virus (incl. purified surface antigen) David Caputo Other [facility] [employer] Other 04-22-2017 influenza virus vaccine, unspecified formulation DO Rick Zapata Work Phone: [facility] 04-13-2017 influenza, injectabl e, quadrivalent, contains preservative Zahra May MD Work Phone: [facility] 03-29-2017 influenza nasal, unspecified formulation Chair Phelan Work Phone: [facility] 03-29-2017 influenza virus vaccine, unspecified formulation David Caputo Work Phone: [facility] [employer] DO Work Phone: 03-03-2017 influenza, injectabl e, quadrivalent, preservative free Zahra May MD Work Phone: [facility] 07-30-2016 pneumococcal conjuga te vaccine, 13 valent David Caputo Work Phone: [facility] 04-29-2011 influenza nasal, unspecified formulation Chair Phelan Work Phone: [facility] 04-29-2011 influenza virus vaccine, unspecified formulation David Caputo Work Phone: [facility] [employer] DO Work Phone: Payers Date Payer Category Payer Unknown [id number] 2023 Self-pay [id number] 2023 Unknown [id number] 2021 Medicaid MEDICAID [facility] MEDICAID [id number] 2021-Present [phone] [place] [address] Medicaid [id number] 2021 Medicaid [id number] 2020 Medicare MEDICARE MEDICAR E A AND B [id number] 2020-Present [phone] [place] [address] Medicare [id number] 2020 Medicare [id number] 1959 Medicaid [id number] 1959 Medicare [id number] 1957 Unknown [id number] 93 1957 Unknown [id number] 93 1957 Unknown [id number] 93 1957 Unknown [id number] 93 1957 Unknown [id number] 93 1957 Unknown [id number] 93 1957 Unknown [id number] 56 1957 Unknown [id number] 56 1957 Unknown [id number] Private Health Insurance [id number] Private Health Insurance [id number] Unknown Unknown [employer] BC/BS [id number] Unknown [id number] 31 Unknown [id number] 31 Unknown [id number] 31 Social History Date Type Detail Facility Start: 08-13-2017 End: 02-13-2022 Tobacco smoking status NHIS Ex-smoker [facility] End: 06-29-2010 History of tobacco use Current smoker [facility] End: 06-29-2010 History of tobacco use Cigarette Smoker [facility] Start: 08-13-2017 End: 02-13-2022 Tobacco use and exposure Smokeless tobacco non-user [facility] Start: 12-03-2021 End: 09-10-2023 Alcohol intake Current drinker of alcohol (finding) [facility] Start: 12-03-2021 End: 10-31-2022 Alcohol intake [facility] Start: 08-13-2017 History SDOH Alcohol Comment occasional beer [facility] Start: 1955 Sex Assigned At Not on file C [facility] Start: 11-25-2021 End: 10-29-2023 Exposure to SARS-CoV-2 (event) Not sure [facility] Start: 10-31-2022 End: 11-28-2022 Sex Assigned At [facility] History of tobacco use Passive smoker [facility] Adult Depression Screening Assessment 0 [facility] Start: 1955 Sex Assigned At Male F [facility] Start: 01-27-[address] [facility] Start: 06-04-2023 End: 06-04-2023 Tobacco smoking status MSIS Never smoked tobacco (finding) [facility] Start: 10-29-2023 Alcoholic beverage intake Lifetime non-drinker (finding) [facility] Work Phone: Start: 05-06-2024 Sex Male (finding) [facility] Medical Equipment Procedure Code Equipment Code Equipment Origin al Text Equipment Identifier Dates Lancets 30G - Start: 03-17-2023 Lancets (Comfort Ez Lancets) 28 gauge misc Start: 11-16-2023 Lancets (Comfort Ez Lancets) 28 gauge misc Start: 11-16-2023 Lancets (Comfort Ez Lancets) 28 gauge misc Start: 11-16-2023 Clinical Notes 02-28-2020 to 04-28-2024 Livier Seay MA - 04/28/2024 2:52 PM EDTMLivier phan MA - 04/28/2024 2:52 PM EDTTelephone Encounter - Rola Gordon APRN.CNP - 04/01/2024 9:47 AM EDTHSrinivasan cano MA - 03/31/2024 2:43 PM EDT Note Date & Type Note Facility 04-28-2024 Nurse Note Patient Identification confirmed: yes. Injection given and documented on AUG per provider order. Livier Seay MA [facility] 04-28-2024 Nurse Note Patient Identification confirmed: yes. Injection given and documented on AUG per provider order. Livier Seay MA documented in this encounter [facility] 04-01-2024 Telephone encounter Note The following approved medication requests have been transmitted electronically. Requested Prescriptions Signed Prescriptions Disp Refills metoclopramide HCl (REGLAN) 10 mg tablet 90 tablet 3 Sig: Take 1 tablet by mouth three times a day with meals. Authorizing Provider: ROLA GORDON APRN.CNP [facility] 04-01-2024 Miscellaneous Notes The following approved medication requests have been transmitted electronically. Requested Prescriptions Signed Prescriptions Disp Refills metoclopramide HCl (REGLAN) 10 mg tablet 90 tablet 3 Sig: Take 1 tablet by mouth three times a day with meals. Authorizing Provider: ROLA GORDON APRN.CNP documented in this encounter [facility] 03-31-2024 Nurse Note Patient Identification confirmed: yes. Injection given and documented on MAR per provider order. Srinivasan See MA [facility] 03-31-2024 Nurse Note Patient Identification confirmed: yes. Injection given and documented on MAR per provider order. Srinivasan See MA documented in this encounter [facility] 03-10-2024 Instructions Rona Cárdenas - 03/10/2024 2:39 PM EDT B12 shot on 04/01 and q 4 weeks Continue folic acid 1 mg daily as Rx'd CT scans with labs in 3 months RTC 1 week after Continue following with Dr. Caputo for DMII management documented in this encounter [facility] 03-10-2024 History of Present illness Narrative Images from the original note were not included. NAME: Rocio Jackson CLINIC NO.: [id number] DATE OF SERVICE: March 10, 2024 () Some elements in this clinic note that are critical to medical decision making have been carefully reviewed and included from a prior clinic note dated: December 03, 2023 (cristian) Referring Provider: Dr. Vanessa Bejarano Additional Clinicians involved in Rocio Jackson's care: Dr. David Caputo CC: Follow up on anemia. 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 H/O iron deficiency anemia 3. Folate deficiency anemia 4. B12 deficiency anemia ASSESSMENT: Cancer of ampulla of Vater [...] Doing well on B12 and folate replacement. No evidence of recurrence. PLAN: B12 shot on 04/01 and q 4 weeks Continue folic acid 1 mg daily as Rx'd CT scans with labs in 3 months RTC 1 week after Continue following with Dr. Caupto for DMII management HPI: CASE HISTORY: Reverse Chronological Order 03/03/2024 - CT CAP: Chest: No CT evidence of metastatic disease in the chest. A/P: Moderate lobular appearing wall thickening is noted involving a segment of small bowel in the right lower quadrant, this appears to have been present on the previous scan performed in August 2023, and is new from more remote previous CTs performed in June 2022 and earlier. There was a suggestion of FDG uptake in this area on the PET CT performed in February 2023. The appearance is nonspecific, given the persistence, chronic inflammatory bowel disease or low-grade neoplasm would both be considerations. There is otherwise no CT evidence of recurrent or metastatic disease in the abdomen/pelvis. 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 09/03/2023 - CT CAP: Chest: Persistent elevation of the right hemidiaphragm. Adjacent compression atelectasis in the right lung field, increased since 03/11/23. Interval resolution of previously noted patchy opacity in the lingula. Otherwise no evidence of intrathoracic metastases. A/P: Mild mesenteric mesenteric lymphadenopathy, increased since 03/11/23. Prominent motion artifact. 03/11/2023 - PET/CT: HEAD and NECK: No evidence of focal uptake to suggest FDG avid neoplastic process.. CHEST: Focal airspace opacity and groundglass nodule in the left lung base with mild FDG uptake, probably inflammatory in nature. Follow-up is recommended. ABDOMEN/PELVIS: No evidence of focal uptake to suggest FDG avid neoplastic process. Probably postsurgical inflammation in abdomen. EXTREMITIES/SKELETON: No evidence of focal uptake to suggest FDG avid neoplastic process.. 03/2022 - IV iron 02/06/2022 - CT chest abdomen and pelvis with IV contrast: Chest: New reticulonodular opacities in the right upper lobe most likely infectious/inflammatory in etiology. Marked motion artifact. Findings compatible with previous granulomatous disease. A/P: Nonspecific borderline mesenteric lymphadenopathy, stable since 02/20/20. New trace pelvic ascites. Nonspecific persistent diffuse thickening of the urinary bladder wall. Stool is noted throughout the colon.Prominent motion artifact. 08/15/2019 - CT chest abdomen and pelvis with IV contrast: Chest: Several mildly prominent central mesenteric lymph nodes are again identified, stable from the prior examination of 12/21/2018. Postoperative changes, compatible with prior Whipple's procedure. No CT evidence for recurrent mass. A/P: There has been interval development of minimal patchy groundglass opacity, as well as a small consolidative opacity within the left lingula, likely infectious/inflammatory nature. 2. No suspicious pulmonary nodule is appreciated. No substantial intrathoracic adenopathy is identified. Evidence for prior granulomatous disease. 12/21/2018 - CT CAP: Stable CT examination of the chest as above. Several mildly prominent central mesenteric lymph nodes are again identified, less conspicuous when compared to the prior study of 06/04/2018. Postoperative changes, compatible with prior Whipple's procedure. 04/2018 - IV iron given 11/13/2017-01/22/2018 - Adjuvant chemotherapy with Gemzar and Xeloda (Per Dr. 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 - Metastatic adenocarcinoma involving three of eleven lymph nodes (3/11). - Lymphovascular invasion and perineural invasion are seen. - Surgical resection margins are free of tumor. Updated Visit, March 10, 2024: Rocio returns with his son for a follow up. He is doing well overall. CT scans show no evidence of metastatic disease in the chest and stable wall thickening in the small bowel. Will repeat scans in 3 months. Updated Visit, December 03, 2023: Rocio returns today with his daughter, Shiela. He is more anemic today - plan for iron infusion if indicated on iron studies. Proceed B12 shot today. He offers no new complaints today. Updated Visit, September 10, 2023: Rocio returns today with his son. We discussed last week's CT scan. He is still takes folic acid at home. Iron is low, he is anemic. He will get B12 today and IV iron when approved. He has gained a little bit of weight, currently 140lbs. Updated Visit, March 11, 2023: Looks better [...] open wounds. CTCAP done late December in [place] concerning for possible metastatic disease. Updated Visit, November 28, 2022: Rocio returns with his son today. Blood sugars are really high. Will need this addressed. Updated Visit, October 03, 2022: Rocio Jackson returns for follow-up. He is accompanied by his son. Since his last visit there has been no significant medical changes. He denies any signs of bleeding and abnormal blood loss. He offers no particular new complaints today. Updated Visit, August [...] with his son Joaquin. Worked at a [employer]. Doing well overall is at his baseline. 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 His PFTs are pending, and he was [...] is fatigued but this is no different than his baseline. Since this is so incongruent with his degree of macrocytic anemia and he doesn't qualify for erythropoietin from a renal perspective, I strongly recommended that he needs a endoscopic evaluation in addition to a cardiopulmonary workup. If those are all negative and I would recommend a bone marrow biopsy for further investigation. REVIEW OF SYSTEMS Per HPI and otherwise negative by full review of organ systems. ECOG PERFORMANCE STATUS: 2 PHYSICAL EXAMINATION: Vitals: BP 98/66 Pulse 79 Temp (Src) 97.7 (Temporal) Resp 16 Wt 0 lb (0.0kg) SpO2 98% There is no height or weight on file to calculate BSA. Exam limited to gross visualization where appropriate. [...] Allergies MEDICATIONS: folic acid 1 mg tablet take one tablet by mouth once daily metoclopramide HCl (REGLAN) 10 mg tablet Take 1 tablet by mouth three times a day with meals. cuuczf-zxslpsoo-jgtutun (ZENPEP) 25,000-79,000- 105,000 unit delayed release capsule Take 2 capsules by mouth three times a day with meals. gwoigk-nlxazhga-czvrnlo (CREON 24) 24,000-76,000 -120,000 unit delayed release capsule Take 2 capsules by mouth three times a day with meals. Cholestyramine-Aspartame (CHOLESTYRAMINE LIGHT) 4 gram [...] the tongue every 5 minutes as needed. iv contrast (will be provided with radiology [...] Contrast as designated per enteric contrast guidelines iv contrast (will be provided with radiology [...] Contrast as designated per enteric contrast guidelines LABORATORY VALUES: WBC (k/uL) Date Value 03/03/2024 3.52 (L) RBC (m/uL) Date Value 03/03/2024 2.93 (L) Hemoglobin (g/dL) Date Value 03/03/2024 10.4 (L) Hematocrit (%) Date Value 03/03/2024 30.8 (L) MCV (fL) Date Value 03/03/2024 105.1 (H) MCH (pg) Date Value 03/03/2024 35.5 (H) MCHC (g/dL) Date Value 03/03/2024 33.8 RDW-CV (%) Date Value 03/03/2024 13.0 Platelet Count (k/uL) Date Value 03/03/2024 284 MPV (fL) Date Value 03/03/2024 8.8 (L) Glucose (mg/dL) Date Value 03/03/2024 87 BUN (mg/dL) Date Value 03/03/2024 22 Creatinine (mg/dL) Date Value 03/03/2024 0.62 (L) Sodium (mmol/L) Date Value 03/03/2024 140 Potassium (mmol/L) Date Value 03/03/2024 4.4 Chloride (mmol/L) Date Value 03/03/2024 109 (H) CO2 (mmol/L) Date Value 03/03/2024 24 Protein, Total (g/dL) Date Value 03/03/2024 5.4 (L) Albumin (g/dL) Date Value 03/03/2024 2.9 (L) Calcium, Total (mg/dL) Date Value 03/03/2024 8.2 (L) Alkaline Phosphatase (U/L) Date Value 03/03/2024 181 (H) Bilirubin, Total (mg/dL) Date Value 03/03/2024 0.4 AST (U/L) Date Value 03/03/2024 18 ALT (U/L) Date Value 03/03/2024 17 DIAGNOSIS: (C24.1) Cancer of ampulla of Vater (HCC) (primary encounter diagnosis) Plan: CT ABD/PEL W IVCON, CT CHEST W IVCON, iv contrast (will be provided with radiology test), enteric contrast (will be provided with radiology test), COMPLETE BLOOD COUNT AND DIFFERENTIAL, COMPREHENSIVE METABOLIC PANEL, IRON AND TIBC, FERRITIN, VITAMIN B12, FOLATE, SERUM (D50.8) Iron deficiency anemia secondary to inadequate dietary iron intake Plan: CT ABD/PEL W IVCON, CT CHEST W IVCON, iv contrast (will be provided with radiology test), enteric contrast (will be provided with radiology test), COMPLETE BLOOD COUNT AND DIFFERENTIAL, COMPREHENSIVE METABOLIC PANEL, IRON AND TIBC, FERRITIN, VITAMIN B12, FOLATE, SERUM (D51.9) Anemia due to vitamin B12 deficiency, unspecified B12 deficiency type Plan: CT ABD/PEL W IVCON, CT CHEST W IVCON, iv contrast (will be provided with radiology test), enteric contrast (will be provided with radiology test), COMPLETE BLOOD COUNT AND DIFFERENTIAL, COMPREHENSIVE METABOLIC PANEL, IRON AND TIBC, FERRITIN, VITAMIN B12, FOLATE, SERUM PAST MEDICAL HISTORY Diagnosis Date Anemia Anxiety Bleeding ulcer 11/15/2016 required 5 blood transfusions Coronary artery disease involving algaaciq coronary artery Diabetes mellitus (HCC) 2017 Duodenal cancer (HCC) Dyslipidemia Fatigue Glaucoma Hypertension Iron deficiency anemia secondary to inadequate dietary iron intake 09/10/2023 Myocardial infarction (HCC) 05/15/2011 PTSD (post-traumatic stress disorder) PAST SURGICAL HISTORY Procedure Laterality Date ANGIOPLASTY HX 05/15/2011 2 stents s/p OR;[facility] CHOLECYSTECTOMY 08/11/2017 [facility] COLONOSCOPY PAST SURGICAL HISTORY OF Cardiac Stents x2 PAST SURGICAL HISTORY OF 09/2017 Whipple PICC LINE INSERT/CONSULT 08/16/2017 Social History Tobacco Use Smoking status: Former Current packs/day: 0.00 Types: Cigarettes Quit date: 2010 Years since quittin.7 Passive exposure: Past Smokeless tobacco: Never Vaping Use Vaping status: Never Used Substance Use Topics Alcohol use: Yes Alcohol/week: 1.0 standard drink of alcohol Types: 1 Cans of Beer (12oz) per week Comment: occasional beer Drug use: No FAMILY HISTORY Problem Relation Age of Onset Cancer Sister I spent a total of 20 minutes on the date of the service which included preparing to see the patient, [id number] patient care, completing clinical documentation, performing a medically appropriate examination, counseling and educating the patient/family/caregiver, ordering medications, tests, or procedures, independently interpreting results (not separately reported), communicating results to the patient/family/caregiver, and care coordination (not separately reported). Zahra May MD, CPE H[facility]ology [facility] On[facility] Services Provided at: [place], [place] Scribe Attestation: This note was scribed by Rona Cárdenas on March 10, 2024 under the direction and supervision of Dr. Zahra May. I attest that all of the information documented is correct to the best of my knowledge. Provider Attestation: I, Zahra May MD, attest that all information documented by the above scribe is correct, and was supervised by me and under my direction. CC: Dr. David Caputo [address] [facility] [id number] documented in this encounter [facility] 03-10-2024 Note HNO ID: [id number] Author: ZAHRA MAY MD Service: ? Author Type: Physician Type: Progress Notes Filed: 03/12/2024 08:26 Note Text: NAME: Rocio Jackson [facility] NO.: [id number] DATE OF SERVICE: March 10, 2024 (Iftikhar) Some elements in this clinic note that are critical to medical decision making have been carefully reviewed and included from a prior clinic note dated: December 03, 2023 (Iftikhar) Referring Provider: Dr. Vanessa Bejarano Additional Clinicians involved in Rocio Jackson's care: Dr. David Caputo CC: Follow up on anemia. 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 H/O iron deficiency anemia 3. Folate deficiency anemia 4. B12 deficiency anemia ASSESSMENT: Cancer of ampulla of Vater [...] Doing well on B12 and folate replacement. No evidence of recurrence. PLAN: B12 shot on 04/01 and q 4 weeks Continue folic acid 1 mg daily as Rx'd CT scans with labs in 3 months RTC 1 week after Continue following with Dr. Caputo for DMII management HPI: CASE HISTORY: Reverse Chronological Order 03/03/2024 - CT CAP: Chest: No CT evidence of metastatic disease in the chest. A/P: Moderate lobular appearing wall thickening is noted involving a segment of small bowel in the right lower quadrant, this appears to have been present on the previous scan performed in August 2023, and is new from more remote previous CTs performed in June 2022 and earlier. There was a suggestion of FDG uptake in this area on the PET CT performed in February 2023. The appearance is nonspecific, given the persistence, chronic inflammatory bowel disease or low-grade neoplasm would both be considerations. There is otherwise no CT evidence of recurrent or metastatic disease in the abdomen/pelvis. 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 09/03/2023 - CT CAP: Chest: Persistent elevation of the right hemidiaphragm. Adjacent compression atelectasis in the right lung field, increased since 03/11/23. Interval resolution of previously noted patchy opacity in the lingula. Otherwise no evidence of intrathoracic metastases. A/P: Mild mesenteric mesenteric lymphadenopathy, increased since 03/11/23. Prominent motion artifact. 03/11/2023 - PET/CT: HEAD and NECK: No evidence of focal uptake to suggest FDG avid neoplastic process.. CHEST: Focal airspace opacity and groundglass nodule in the left lung base with mild FDG uptake, probably inflammatory in nature. Follow-up is recommended. ABDOMEN/PELVIS: No evidence of focal uptake to suggest FDG avid neoplastic process. Probably postsurgical inflammation in abdomen. EXTREMITIES/SKELETON: No evidence of focal uptake to suggest FDG avid neoplastic process.. 03/2022 - IV iron 02/06/2022 - CT chest abdomen and pelvis with IV contrast: Chest: New reticulonodular opacities in the right upper lobe most likely infectious/inflammatory in etiology. Marked motion artifact. Findings compatible with previous granulomatous disease. A/P: Nonspecific borderline mesenteric lymphadenopathy, stable since 02/20/20. New trace pelvic ascites. Nonspecific persistent diffuse thickening of the urinary bladder wall. Stool is noted throughout the colon.Prominent motion artifact. 08/15/2019 - CT chest abdomen and pelvis with IV contrast: Chest: Several mildly prominent central mesenteric lymph nodes are again identified, stable from the prior examination of 12/21/2018. Postoperative changes, compatible with prior Whipple's procedure. No CT evidence for recurrent mass. A/P: There has been interval development of minimal patchy groundglass opacity, as well as a small consolidative opacity within the left lingula, likely infectious/inflammatory nature. 2. No suspicious pulmonary nodule is appreciated. No substantial intrathoracic adenopathy is identified. Evidence for prior granulomatous disease. 12/21/2018 - CT CAP: Stable CT examination of the chest as above. Several mildly prominent central m (more content not included)... [facility] 03-03-2024 Nurse Note Patient Identification confirmed: yes. Injection given and documented on AUG per provider order. Livier Seay MA [facility] 03-03-2024 Nurse Note Patient Identification confirmed: yes. Injection given and documented on AUG per provider order. Livier Seay MA documented in this encounter [facility] 03-03-2024 History of Present illness Narrative RADIOLOGY SERVICE PROGRESS NOTE SERVICE DATE: 03/03/2024 SERVICE TIME: 1:14 PM PATIENT IDENTITY VERIFICATION COMPLETED USING TWO (2) STANDARD IDENTIFIERS: Name and Date of confirmed by patient verbally FALL SCREENING: Has the patient had 2 falls in the last year or 1 fall with injury or currently using an Ambulatory Assistive Device (Walker, Cane, Wheelchair, Crutches, etc.)? Yes, Patient High Risk for Falls What interventions were put in place to prevent falls during this visit? Instructed Patient to Call for Help if Needed and Increased Observations by Caregivers PATIENT GENDER DATA: .male ALLERGIES: Reviewed and unchanged MEDICATIONS REVIEWED: Not applicable PATIENT RELEVANT IMPLANT DATA REVIEWED: Not Applicable PATIENT PRESENTS WITH AN IMPLANTABLE OR ATTACHED LEAD PAINTER: No CREATININE: Creatinine Date Value Ref Range Status 03/03/2024 0.62 (L) 0.73 - 1.22 mg/dL Final 12/03/2023 0.78 0.73 - 1.22 mg/dL Final 09/03/2023 0.58 (L) 0.73 - 1.22 mg/dL Final Estimated Glomerular Filtration Rate Date Value Ref Range Status 03/03/2024 105 >=60 mL/min/1.73m Final Comment: Estimated Glomerular Filtration Rate (eGFR) is calculated using the 2020 CKD-EPI creatinine equation. This equation utilizes serum creatinine, sex, and age as parameters. The creatinine assay has traceable calibration to isotope dilution-mass spectrometry. Refer to KDIGO guidelines for clinical interpretation. In patients with unstable renal function, e.g. those with acute kidney injury, the eGFR may not accurately reflect actual GFR. eGFR- Date Value Ref Range Status 02/20/2020 >60 Final P.O.C.T. RESULTS: N/A March 03, [address] PERFORMED: No IV SITE: Ambulatory: A peripheral IV was started in the Right forearm with a Angio cath: 22 gauge. POST EXAM PIV STATUS: Discontinued PROCEDURE TYPE: CT Chest/Abdomen/Pelvis with contrast PATIENT DISCHARGED TO: Ambulatory patient, left [place] department area. A Diagnostic radioactive procedure has taken place, with no further precautions necessary other than routine body substance precautions. More information regarding radiation safety can be found using this link: [email or web address] [email or web address] SIGNATURE: RT Jesus(Pilar) PATIENT NAME: Rocio Jackson DATE: March 03, 2024 TIME: 1:14 PM PAGER/CONTACT #: documented in this encounter [facility] 03-03-2024 Note HNO ID: [id number] Author: SUSAN PROCTOR RT(R) Service: ? Author Type: Technologist Type: Progress Notes Filed: 03/03/2024 13:15 Note Text: RADIOLOGY SERVICE PROGRESS NOTE SERVICE DATE: 03/03/2024 SERVICE TIME: 1:14 PM PATIENT IDENTITY VERIFICATION COMPLETED USING TWO (2) STANDARD IDENTIFIERS: Name and Date of confirmed by patient verbally FALL SCREENING: Has the patient had 2 falls in the last year or 1 fall with injury or currently using an Ambulatory Assistive Device (Walker, Cane, Wheelchair, Crutches, etc.)? Yes, Patient High Risk for Falls What interventions were put in place to prevent falls during this visit? Instructed Patient to Call for Help if Needed and Increased Observations by Caregivers PATIENT GENDER DATA: .male ALLERGIES: Reviewed and unchanged MEDICATIONS REVIEWED: Not applicable PATIENT RELEVANT IMPLANT DATA REVIEWED: Not Applicable PATIENT PRESENTS WITH AN IMPLANTABLE OR ATTACHED LEAD PAINTER: No CREATININE: Creatinine Date Value Ref Range Status 03/03/2024 0.62 (L) 0.73 - 1.22 mg/dL Final 12/03/2023 0.78 0.73 - 1.22 mg/dL Final 09/03/2023 0.58 (L) 0.73 - 1.22 mg/dL Final Estimated Glomerular Filtration Rate Date Value Ref Range Status 03/03/2024 105 >=60 mL/min/1.73m? Final Comment: Estimated Glomerular Filtration Rate (eGFR) is calculated using the 2020 CKD-EPI creatinine equation. This equation utilizes serum creatinine, sex, and age as parameters. The creatinine assay has traceable calibration to isotope dilution-mass spectrometry. Refer to KDIGO guidelines for clinical interpretation. In patients with unstable renal function, e.g. those with acute kidney injury, the eGFR may not accurately reflect actual GFR. eGFR- Date Value Ref Range Status 02/20/2020 >60 Final P.O.C.T. RESULTS: N/A March 03, [address] PERFORMED: No IV SITE: Ambulatory: A peripheral IV was started in the Right forearm with a Angio cath: 22 gauge. POST EXAM PIV STATUS: Discontinued PROCEDURE TYPE: CT Chest/Abdomen/Pelvis with contrast PATIENT DISCHARGED TO: Ambulatory patient, left [place] department area. A Diagnostic radioactive procedure has taken place, with no further precautions necessary other than routine body substance precautions. More information regarding radiation safety can be found using this link: [email or web address] 20Diagnostic%20Nuclear%20Medicine%20 [email or web address] SIGNATURE: RT Jesus(R) PATIENT NAME: Rocio Jackson DATE: March 03, 2024 TIME: 1:14 PM PAGER/CONTACT #: [facility] 01-29-2024 Nurse Note Patient Identification confirmed: yes. Injection given and documented on MAR per provider order. Lillian Tucekr MA [facility] 01-29-2024 Nurse Note Patient Identification confirmed: yes. Injection given and documented on MAR per provider order. Lillian Tucker MA documented in this encounter [facility] 01-08-2024 Nurse Note Patient Identification confirmed: yes. Injection given and documented on MAR per provider order. Lillian Tucker MA [facility] 01-08-2024 Nurse Note Patient Identification confirmed: yes. Injection given and documented on MAR per provider order. Lillian Tucker MA documented in this encounter [facility] 12-07-2023 Telephone encounter Note Pt daughterShiela, aware of MM message and denies any questions, needs or concerns at this time. Cassandra Hernandez RN [facility] 12-07-2023 Miscellaneous Notes Pt daughterShilea, aware of MM message and denies any questions, needs or concerns at this time. Cassandra Hernandez RN Noneed for iron at this time Leila Wagner PA-C MM: Please advise on Iron labs Cassandra Hernandez RN Dr Crooks is requesting Triage nurse to call patient with results of FE studies from today 12-03-23. Thank you documented in this encounter [facility] 12-07-2023 Telephone encounter Note Noneed for iron at this time Leila Wagner PA-C [facility] Work Phone: 12-07-2023 Telephone encounter Note MM: Please advise on Iron labs Cassandra Hernandez RN [facility] 12-03-2023 Nurse Note Patient Identification confirmed: yes. Injection given and documented on MAR per provider order. Lillian Tucker MA [facility] 12-03-2023 Nurse Note Patient Identification confirmed: yes. Injection given and documented on MAR per provider order. Lillian Tucker MA documented in this encounter [facility] 12-03-[address] Crooks is requesting Triage nurse to call patient with results of FE studies from today 12-03-23. Thank you [facility] 12-03-2023 Instructions Rona Thomas - 12/03/2023 3:27 PM EDT B12 shot today and every 4 weeks Triage to call with results of iron studies IV iron if indicated (previously received Monoferric) Continue folic acid 1 mg daily as Rx'd CT scans with labs in 3 months RTC 1 week after Continue following with Dr. Caputo for DMII management documented in this encounter [facility] 12-03-2023 History of Present illness Narrative Images from the original note were not included. NAME: Rocio Jackson CLINIC NO.: [id number] DATE OF SERVICE: December 03, 2023 () Some elements in this clinic note that are critical to medical decision making have been carefully reviewed and included from a prior clinic [facility] Referring Provider: Dr. Vanessa Bejarano Additional Clinicians involved in Rocio Jackson's care: Dr. David Caputo CC: Follow up on anemia. 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 H/O iron deficiency anemia 3. Folate deficiency anemia 4. B12 deficiency anemia ASSESSMENT: Cancer of ampulla of Vater [...] Doing well on B12 and folate replacement. No evidence of recurrence. PLAN: B12 shot today and every 4 weeks Triage to call with results of iron studies IV iron if indicated (previously received Monoferric) Continue folic acid 1 mg daily as Rx'd CT scans with labs in 3 months RTC 1 week after Continue following with Dr. Caputo for DMII management HPI: CASE HISTORY: Reverse Chronological Order 09/03/2023 - CT CAP: Chest: Persistent elevation of the right hemidiaphragm. Adjacent compression atelectasis in the right lung field, increased since 03/11/23. Interval resolution of previously noted patchy opacity in the lingula. Otherwise no evidence of intrathoracic metastases. A/P: Mild mesenteric mesenteric lymphadenopathy, increased since 03/11/23. Prominent motion artifact. 03/11/2023 - PET/CT: HEAD and NECK: No evidence of focal uptake to suggest FDG avid neoplastic process.. CHEST: Focal airspace opacity and groundglass nodule in the left lung base with mild FDG uptake, probably inflammatory in nature. Follow-up is recommended. ABDOMEN/PELVIS: No evidence of focal uptake to suggest FDG avid neoplastic process. Probably postsurgical inflammation in abdomen. EXTREMITIES/SKELETON: No evidence of focal uptake to suggest FDG avid neoplastic process.. 03/2022 - IV iron 02/06/2022 - CT chest abdomen and pelvis with IV contrast: Chest: New reticulonodular opacities in the right upper lobe most likely infectious/inflammatory in etiology. Marked motion artifact. Findings compatible with previous granulomatous disease. A/P: Nonspecific borderline mesenteric lymphadenopathy, stable since 02/20/20. New trace pelvic ascites. Nonspecific persistent diffuse thickening of the urinary bladder wall. Stool is noted throughout the colon.Prominent motion artifact. 08/15/2019 - CT chest abdomen and pelvis with IV contrast: Chest: Several mildly prominent central mesenteric lymph nodes are again identified, stable from the prior examination of 12/21/2018. Postoperative changes, compatible with prior Whipple's procedure. No CT evidence for recurrent mass. A/P: There has been interval development of minimal patchy groundglass opacity, as well as a small consolidative opacity within the left lingula, likely infectious/inflammatory nature. 2. No suspicious pulmonary nodule is appreciated. No substantial intrathoracic adenopathy is identified. Evidence for prior granulomatous disease. 12/21/2018 - CT CAP: Stable CT examination of the chest as above. Several mildly prominent central mesenteric lymph nodes are again identified, less conspicuous when compared to the prior study of 06/04/2018. Postoperative changes, compatible with prior Whipple's procedure. 04/2018 - IV iron given 11/13/2017-01/22/2018 - Adjuvant chemotherapy with Gemzar and Xeloda (Per Dr. 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 - Metastatic adenocarcinoma involving three of eleven lymph nodes (3/11). - Lymphovascular invasion and perineural invasion are seen. - Surgical resection margins are free of tumor. Updated Visit, December 03, 2023: Rocio returns today with his daughter, Shiela. He is more anemic today - plan for iron infusion if indicated on iron studies. Proceed B12 shot today. He offers no new complaints today. Updated Visit, September 10, 2023: Rocio returns today with his son. We discussed last week's CT scan. He is still takes folic acid at home. Iron is low, he is anemic. He will get B12 today and IV iron when approved. He has gained a little bit of weight, currently 140lbs. Updated Visit, March 11, 2023: Looks better [...] open wounds. CTCAP done late December in [place] concerning for possible metastatic disease. Updated Visit, November 28, 2022: Rocio returns with his son today. Blood sugars are really high. Will need this addressed. Updated Visit, October 03, 2022: Rocio Jackson returns for follow-up. He is accompanied by his son. Since his last visit there has been no significant medical changes. He denies any signs of bleeding and abnormal blood loss. He offers no particular new complaints today. Updated Visit, August [...] with his son Joaquin. Worked at a [employer]. Doing well overall is at his baseline. 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 His PFTs are pending, and he was [...] is fatigued but this is no different than his baseline. Since this is so incongruent with his degree of macrocytic anemia and he doesn't qualify for erythropoietin from a renal perspective, I strongly recommended that he needs a endoscopic evaluation in addition to a cardiopulmonary workup. If those are all negative and I would recommend a bone marrow biopsy for further investigation. REVIEW OF SYSTEMS Per HPI and otherwise negative by full review of organ systems. ECOG PERFORMANCE STATUS: 1 PHYSICAL EXAMINATION: Vitals: BP 102/66 Pulse 96 Temp (Src) 97.1 (Temporal) Resp 18 SpO2 98% There is no height or weight on file to calculate BSA. Exam limited to gross visualization where appropriate. [...] Take 1 tablet by mouth three times a day with meals. svbson-baslymmi-tnozrsh (ZENPEP) 25,000-79,000- 105,000 unit delayed release capsule Take 2 capsules by mouth three times a day with meals. zzunbm-tfqrsplx-klmxymc (CREON 24) 24,000-76,000 -120,000 unit delayed release capsule Take 2 capsules by mouth three times a day with meals. folic acid 1 mg tablet [...] the tongue every 5 minutes as needed. iv contrast (will be provided with radiology [...] Contrast as designated per enteric contrast guidelines LABORATORY VALUES: WBC (k/uL) Date Value 12/03/2023 6.08 RBC (m/uL) Date Value 12/03/2023 3.37 (L) Hemoglobin (g/dL) Date Value 12/03/2023 10.9 (L) Hematocrit (%) Date Value 12/03/2023 34.0 (L) MCV (fL) Date Value 12/03/2023 100.9 (H) MCH (pg) Date Value 12/03/2023 32.3 MCHC (g/dL) Date Value 12/03/2023 32.1 RDW-CV (%) Date Value 12/03/2023 13.4 Platelet Count (k/uL) Date Value 12/03/2023 361 MPV (fL) Date Value 12/03/2023 9.0 Glucose (mg/dL) Date Value 12/03/2023 103 (H) BUN (mg/dL) Date Value 12/03/2023 25 (H) Creatinine (mg/dL) Date Value 12/03/2023 0.78 Sodium (mmol/L) Date Value 12/03/2023 137 Potassium (mmol/L) Date Value 12/03/2023 4.5 Chloride (mmol/L) Date Value 12/03/2023 108 (H) CO2 (mmol/L) Date Value 12/03/2023 19 (L) Protein, Total (g/dL) Date Value 12/03/2023 7.0 Albumin (g/dL) Date Value 12/03/2023 3.6 (L) Calcium, Total (mg/dL) Date Value 12/03/2023 9.5 Alkaline Phosphatase (U/L) Date Value 12/03/2023 158 (H) Bilirubin, Total (mg/dL) Date Value 12/03/2023 0.2 AST (U/L) Date Value 12/03/2023 13 (L) ALT (U/L) Date Value 12/03/2023 13 DIAGNOSIS: (D50.8) Iron deficiency anemia secondary to inadequate dietary iron intake (primary encounter diagnosis) Plan: CT ABD/PEL W IVCON, CT CHEST W IVCON, iv contrast (will be provided with radiology test), enteric contrast (will be provided with radiology test), COMPLETE BLOOD COUNT AND DIFFERENTIAL, COMPREHENSIVE METABOLIC PANEL, IRON AND TIBC, FERRITIN, VITAMIN B12, FOLATE, SERUM, CA 19-9 (C80.1) Adenocarcinoma (HCC) (C24.1) Cancer of ampulla of Vater (HCC) Plan: CT ABD/PEL W IVCON, CT CHEST W IVCON, iv contrast (will be provided with radiology test), enteric contrast (will be provided with radiology test), COMPLETE BLOOD COUNT AND DIFFERENTIAL, COMPREHENSIVE METABOLIC PANEL, IRON AND TIBC, FERRITIN, VITAMIN B12, FOLATE, SERUM, CA 19-9 (D51.9) Anemia due to vitamin B12 deficiency, unspecified B12 deficiency type Plan: CT ABD/PEL W IVCON, CT CHEST W IVCON, iv contrast (will be provided with radiology test), enteric contrast (will be provided with radiology test), COMPLETE BLOOD COUNT AND DIFFERENTIAL, COMPREHENSIVE METABOLIC PANEL, IRON AND TIBC, FERRITIN, VITAMIN B12, FOLATE, SERUM, CA 19-9 PAST MEDICAL HISTORY Diagnosis Date Anemia Anxiety Bleeding ulcer 11/15/2016 required 5 blood transfusions Coronary artery disease involving algaaciq coronary artery Diabetes mellitus (HCC) 2016 Duodenal cancer (HCC) Dyslipidemia Fatigue Glaucoma Hypertension Iron deficiency anemia secondary to inadequate dietary iron intake 09/10/2023 Myocardial infarction (HCC) 05/15/2011 PTSD (post-traumatic stress disorder) PAST SURGICAL HISTORY Procedure Laterality Date ANGIOPLASTY HX 05/15/2011 2 stents s/p OR;[facility] CHOLECYSTECTOMY 08/11/2017 [facility] COLONOSCOPY PAST SURGICAL HISTORY OF Cardiac Stents x2 PAST SURGICAL HISTORY OF 09/2017 [place] PICC LINE INSERT/CONSULT 08/16/2017 Social History Tobacco Use Smoking status: Former Types: Cigarettes Quit date: 2010 Years since quittin.4 Passive exposure: Past Smokeless tobacco: Never Vaping Use Vaping Use: Never used Substance Use Topics Alcohol use: Yes Alcohol/week: 1.0 standard drink of alcohol Types: 1 Cans of Beer (12oz) per week Comment: occasional beer Drug use: No FAMILY HISTORY Problem Relation Age of Onset Cancer Sister I spent a total of 20 minutes on the date of the service which included preparing to see the patient, [id number] patient care, completing clinical documentation, performing a medically appropriate examination, counseling and educating the patient/family/caregiver, ordering medications, tests, or procedures, independently interpreting results (not separately reported), communicating results to the patient/family/caregiver, and care coordination (not separately reported). Zahra May MD, CPE [facility]ology [facility] On[facility] Provided at: [place], [place] Scribe Attestation: This note was scribed by Rona Thomas on December 03, 2023 under the direction and supervision of Dr. Zahra May. I attest that all of the information documented is correct to the best of my knowledge. Provider Attestation: I, Zahra May MD, attest that all information documented by the above scribe is correct, and was supervised by me and under my direction. CC: Dr. David Caputo [address] [place] [phone] documented in this encounter [facility] 12-03-2023 Note HNO ID: [id number] Author: ZAHRA MAY MD Service: ? Author Type: Physician Type: Progress Notes Filed: 12/05/2023 15:00 Note Text: NAME: Rocio Jackosn CLINIC NO.: [id number] DATE OF SERVICE: December 03, 2023 (Iftikhar) Some elements in this clinic note that are critical to medical decision making have been carefully reviewed and included from a prior clinic note dated: September 10, 2023 (Iftikhar) Referring Provider: Dr. Vanessa Bejarano Additional Clinicians involved in Rocio Jackson's care: Dr. David Caputo CC: Follow up on anemia. 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 H/O iron deficiency anemia 3. Folate deficiency anemia 4. B12 deficiency anemia ASSESSMENT: Cancer of ampulla of Vater [...] Doing well on B12 and folate replacement. No evidence of recurrence. PLAN: B12 shot today and every 4 weeks Triage to call with results of iron studies IV iron if indicated (previously received Monoferric) Continue folic acid 1 mg daily as Rx'd CT scans with labs in 3 months RTC 1 week after Continue following with Dr. Caputo for DMII management HPI: CASE HISTORY: Reverse Chronological Order 09/03/2023 - CT CAP: Chest: Persistent elevation of the right hemidiaphragm. Adjacent compression atelectasis in the right lung field, increased since 03/11/23. Interval resolution of previously noted patchy opacity in the lingula. Otherwise no evidence of intrathoracic metastases. A/P: Mild mesenteric mesenteric lymphadenopathy, increased since 03/11/23. Prominent motion artifact. 03/11/2023 - PET/CT: HEAD and NECK: No evidence of focal uptake to suggest FDG avid neoplastic process.. CHEST: Focal airspace opacity and groundglass nodule in the left lung base with mild FDG uptake, probably inflammatory in nature. Follow-up is recommended. ABDOMEN/PELVIS: No evidence of focal uptake to suggest FDG avid neoplastic process. Probably postsurgical inflammation in abdomen. EXTREMITIES/SKELETON: No evidence of focal uptake to suggest FDG avid neoplastic process.. 03/2022 - IV iron 02/06/2022 - CT chest abdomen and pelvis with IV contrast: Chest: New reticulonodular opacities in the right upper lobe most likely infectious/inflammatory in etiology. Marked motion artifact. Findings compatible with previous granulomatous disease. A/P: Nonspecific borderline mesenteric lymphadenopathy, stable since 02/20/20. New trace pelvic ascites. Nonspecific persistent diffuse thickening of the urinary bladder wall. Stool is noted throughout the colon.Prominent motion artifact. 08/15/2019 - CT chest abdomen and pelvis with IV contrast: Chest: Several mildly prominent central mesenteric lymph nodes are again identified, stable from the prior examination of 12/21/2018. Postoperative changes, compatible with prior Whipple's procedure. No CT evidence for recurrent mass. A/P: There has been interval development of minimal patchy groundglass opacity, as well as a small consolidative opacity within the left lingula, likely infectious/inflammatory nature. 2. No suspicious pulmonary nodule is appreciated. No substantial intrathoracic adenopathy is identified. Evidence for prior granulomatous disease. 12/21/2018 - CT CAP: Stable CT examination of the chest as above. Several mildly prominent central mesenteric lymph nodes are again identified, less conspicuous when compared to the prior study of 06/04/2018. Postoperative changes, compatible with prior Whipple's procedure. 04/2018 - IV iron given 11/13/2017-01/22/2018 - Adjuvant chemotherapy with Gemzar and Xeloda (Per Dr. 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 - Metastatic adenocarcinoma involving three of eleven lymph nodes (3/11). - Lymphovascular invasion and perineural invasion are seen. - Surgical resection margins a (more content not included)... [facility] 11-05-2023 Nurse Note Patient Identification confirmed: yes. Injection given and documented on MAR per provider order. Livier Seay MA [facility] 11-05-2023 Nurse Note Patient Identification confirmed: yes. Injection given and documented on MAR per provider order. Livier Seay MA documented in this encounter [facility] 10-29-2023 History of Present illness Narrative Subjective Rocio Jackson is a 68 y.o. male Chief Complaint Annual Exam 68-year-old gentleman returns for annual follow-up he is doing well from a cardiovascular standpoint without any cardiovascular events or hospitalizations or angina or nitrate usage. He remains quite frail, ambulates only via wheelchair due to frailty, muscle loss, history of gastric cancer; last oncology visit is reviewed. Patient does have a history of prior OR and stenting in 2010 due to an anterior OR with two 4 x 18 and 4 x 12 mm Xience stents, at the time with severe LV dysfunction. Follow-up stress perfusion imaging in 2018 revealed improved left ventricular function with ejection fraction of 40% and anteroseptal scar. Patient does have a history of gastric cancer with Whipple procedure with no clinical recurrence of cancer, underwent chemotherapy and biologic therapy in 2018 no chemo since that time with otherwise stable scans from review of his oncology notes. He does have a history of paroxysmal A-fib and remains on low-dose Eliquis, ECG from June 2022 with no recurrence Recommendations, continue current therapies, follow-up in 1 year Review of Systems All other systems reviewed and are negative. Vitals: 10/29/23 1436 BP: 120/80 BP Location: Left arm Patient Position: Sitting Pulse: 84 Weight: 64 kg (141 lb) Height: 1.727 m (5' 8 ) Objective Physical Exam Constitutional: Appearance: Normal appearance. Comments: Exam done in wheelchair HENT: Nose: Nose normal. Neck: Vascular: No carotid bruit. Cardiovascular: Rate and Rhythm: Normal rate. Pulses: Normal pulses. Heart sounds: Normal heart sounds. Pulmonary: Effort: Pulmonary effort is normal. Abdominal: General: Bowel sounds are normal. Palpations: Abdomen is soft. Musculoskeletal: General: Normal range of motion. Cervical back: Normal range of motion. Right lower leg: No edema. Left lower leg: No edema. Skin: General: Skin is warm and dry. Neurological: General: No focal deficit present. Mental Status: He is alert. Psychiatric: Mood and Affect: Mood normal. Behavior: Behavior normal. Thought Content: Thought content normal. Judgment: Judgment normal. Allergies Ophelia inhibitors Current Medications Current Outpatient Medications: ALPRAZolam (Xanax) 0.25 mg tablet, Take 1 tablet (0.25 mg) by mouth every 12 hours. As needed, Disp: , Rfl: apixaban (Eliquis) 2.5 mg tablet, Take 1 tablet (2.5 mg) by mouth 2 times a day., Disp: 180 tablet, Rfl: 3 atorvastatin (Lipitor) 20 mg tablet, Take 1 tablet (20 mg) by mouth once daily., Disp: , Rfl: baclofen (Lioresal) 10 mg tablet, Take 1 tablet (10 mg) by mouth 3 times a day. 1/2 tablet 3times daily, Disp: , Rfl: docusate sodium (Colace) 100 mg capsule, Take 1 capsule (100 mg) by mouth once daily., Disp: , Rfl: folic acid (Folvite) 1 mg tablet, Take 1 tablet (1 mg) by mouth once daily., Disp: , Rfl: Janumet 50-1,000 mg tablet, Take 1 tablet by mouth 2 times a day with meals., Disp: , Rfl: hupmpw-bamjdrvh-ppnztrj (Creon) 24,000-76,000 -120,000 unit capsule, Take 1 capsule by mouth 3 times a day with meals., Disp: , Rfl: metoclopramide (Reglan) 10 mg tablet, Take 1 tablet (10 mg) by mouth 3 times a day., Disp: , Rfl: mirtazapine (Remeron) 30 mg tablet, Take 1 tablet (30 mg) by mouth once daily at bedtime., Disp: , Rfl: nitroglycerin (Nitrostat) 0.4 mg SL tablet, Place 1 tablet (0.4 mg) under the tongue every 5 minutes if needed., Disp: , Rfl: Assessment/Plan 1. Arteriosclerosis of carotid artery, unspecified laterality 2. History of PTCA 3. Old inferior wall myocardial infarction 4. PAF (paroxysmal atrial fibrillation) (Multi) 5. Other specified diabetes mellitus with other specified complication, without long-term current use of insulin (Multi) 6. Essential hypertension 7. Mixed hyperlipidemia 8. Former smoker 9. BMI 21.0-21.9, adult 10. Frailty Scribe Attestation By signing my name below, IKiley LPN , Scribe attest that this documentation has been prepared under the direction and in the presence of Irving Abreu DO. Provider Attestation - Scribe documentation All medical record entries made by the Scribe were at my direction and personally dictated by me. I have reviewed the chart and agree that the record accurately reflects my personal performance of the history, physical exam, discussion and plan. documented in this encounter [facility] Work Phone: 10-29-2023 Instructions Jimmy Dawkins MA - 10/29/2023 2:10 PM EDT Please bring all medicines, vitamins, and herbal supplements with you when you come to the office. Prescriptions will not be filled unless you are compliant with your follow up appointments or have a follow up appointment scheduled as per instruction of your physician. Refills should be requested at the time of your visit. documented in this encounter [facility] Work Phone: 10-08-2023 Nurse Note Patient Identification confirmed: yes. Injection given and documented on AUG per provider order. Livier Seay MA documented in this encounter [facility] 09-24-2023 Note HNO ID: [id number] Author: BRONWYN DIAZ RN Service: ? Author Type: Registered Nurse Type: Progress Notes Filed: 09/24/2023 16:04 Note Text: During treatment pt requested assistance going to the rest room. Pt's son was able to transfer him from treatment chair into wheelchair. It then to 3 Rn to assist patient with transferring and madhu care in the restroom. Pt is a full 2 person assist to stand and transfer. He is non-weight bearing on his legs d/t weakness. Pt's son lives with and cares for pt. [facility] 09-21-2023 Note HNO ID: [id number] Author: MACKENZIE KNIGHT LSW Service: ? Author Type: Plant Anatomy Teacher Type: Progress Notes Filed: 09/21/2023 11:38 Note Text: Patient appears on the [facility] First Time Treatment List for a non-oncology treatment. No psychosocial assessment is indicated. MARINO Andrade [facility] 09-21-2023 History of Present illness Narrative Patient appears on the [facility] First Time Treatment List for a non-oncology treatment. No psychosocial assessment is indicated. MARINO Andrade documented in this encounter [facility] 09-18-2023 Miscellaneous Notes Pt sister called to reorder Zenpep. Pt qualified for free [facility] was ordered 09/09 and would be shipped to pt. He should receive in 5/ business days (from 09/09). Daughter aware he should receive today or Thursday. Encouraged to call back and speak with pharmacy, if not rec'd to check status. Cassandra Hernandez RN documented in this encounter [facility] 09-10-2023 Nurse Note Patient Identification confirmed: yes. Injection given and documented on AUG per provider order. Livier Seay documented in this encounter [facility] 09-10-2023 History of Present illness Narrative Images from the original note were not included. NAME: Rocio Jackson CLINIC NO.: [id number] DATE OF SERVICE: September 10, 2023 (Iftikhar) Some elements in this clinic note that are critical to medical decision making have been carefully reviewed and included from a prior clinic note dated: March 11, 2023 (Iftikhar) Referring Provider: Dr. Vanessa Bejarano Additional Clinicians involved in Rocio Torressch's care: Dr. David Caputo CC: Follow up on anemia. 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 H/O iron deficiency anemia 3. Folate deficiency anemia 4. B12 deficiency anemia ASSESSMENT: Cancer of ampulla of Vater [...] Doing well on B12 and folate replacement. No evidence of recurrence. PLAN: B12 shot today and every 4 weeks. IV iron when approved (previously received Monoferric) Patient will continue folic acid 1 mg daily as Rx'd. continue following with Dr. Caputo for DMII management. RTC in 3 months Labs [address] scans in 6 months HPI: CASE HISTORY: Reverse Chronological Order 09/03/2023 - CT CAP: Chest: Persistent elevation of the right hemidiaphragm. Adjacent compression atelectasis in the right lung field, increased since 03/11/23. Interval resolution of previously noted patchy opacity in the lingula. Otherwise no evidence of intrathoracic metastases. A/P: Mild mesenteric mesenteric lymphadenopathy, increased since 03/11/23. Prominent motion artifact. 03/11/2023 - PET/CT: HEAD and NECK: No evidence of focal uptake to suggest FDG avid neoplastic process.. CHEST: Focal airspace opacity and groundglass nodule in the left lung base with mild FDG uptake, probably inflammatory in nature. Follow-up is recommended. ABDOMEN/PELVIS: No evidence of focal uptake to suggest FDG avid neoplastic process. Probably postsurgical inflammation in abdomen. EXTREMITIES/SKELETON: No evidence of focal uptake to suggest FDG avid neoplastic process.. 03/2022 - IV iron 02/06/2022 - CT chest abdomen and pelvis with IV contrast: Chest: New reticulonodular opacities in the right upper lobe most likely infectious/inflammatory in etiology. Marked motion artifact. Findings compatible with previous granulomatous disease. A/P: Nonspecific borderline mesenteric lymphadenopathy, stable since 02/20/20. New trace pelvic ascites. Nonspecific persistent diffuse thickening of the urinary bladder wall. Stool is noted throughout the colon.Prominent motion artifact. 08/15/2019 - CT chest abdomen and pelvis with IV contrast: Chest: Several mildly prominent central mesenteric lymph nodes are again identified, stable from the prior examination of 12/21/2018. Postoperative changes, compatible with prior Whipple's procedure. No CT evidence for recurrent mass. A/P: There has been interval development of minimal patchy groundglass opacity, as well as a small consolidative opacity within the left lingula, likely infectious/inflammatory nature. 2. No suspicious pulmonary nodule is appreciated. No substantial intrathoracic adenopathy is identified. Evidence for prior granulomatous disease. 12/21/2018 - CT CAP: Stable CT examination of the chest as above. Several mildly prominent central mesenteric lymph nodes are again identified, less conspicuous when compared to the prior study of 06/04/2018. Postoperative changes, compatible with prior Whipple's procedure. 04/2018 - IV iron given 11/13/2017-01/22/2018 - Adjuvant chemotherapy with Gemzar and Xeloda (Per Dr. 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 - Metastatic adenocarcinoma involving three of eleven lymph nodes (3/11). - Lymphovascular invasion and perineural invasion are seen. - Surgical resection margins are free of tumor. Updated Visit, September 10, 2023: Rocio returns today with his son. We discussed last week's CT scan. He is still takes folic acid at home. Iron is low, he is anemic. He will get B12 today and IV iron when approved. He has gained a little bit of weight, currently 140lbs. Updated Visit, March 11, 2023: Looks better [...] open wounds. CTCAP done late December in [place] concerning for possible metastatic disease. Updated Visit, November 28, 2022: Rocio returns with his son today. Blood sugars are really high. Will need this addressed. Updated Visit, October 03, 2022: Rocio Jackson returns for follow-up. He is accompanied by his son. Since his last visit there has been no significant medical changes. He denies any signs of bleeding and abnormal blood loss. He offers no particular new complaints today. Updated Visit, August [...] with his son Joaquin. Worked at a [employer]. Doing well overall is at his baseline. 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 His PFTs are pending, and he was [...] is fatigued but this is no different than his baseline. Since this is so incongruent with his degree of macrocytic anemia and he doesn't qualify for erythropoietin from a renal perspective, I strongly recommended that he needs a endoscopic evaluation in addition to a cardiopulmonary workup. If those are all negative and I would recommend a bone marrow biopsy for further investigation. REVIEW OF SYSTEMS Per HPI and otherwise negative by full review of organ systems. ECOG PERFORMANCE STATUS: 1 PHYSICAL EXAMINATION: Vitals: BP 113/69 Pulse 83 Temp (Src) 97.1 (Temporal) Resp 16 Ht 5' 7.244 (1.71m) SpO2 97% Body surface area is 1.55 [...] petechiae. ALLERGIES: ALLERGIES No Known Allergies MEDICATIONS: pinked-hxremgwc-ozfbgaw (ZENPEP) 25,000-79,000- 105,000 unit delayed release capsule Take 2 capsules by mouth three times a day with meals. metoclopramide HCl (REGLAN) 10 mg tablet Take 1 tablet by mouth three times a day with meals. xyoorr-gvfcgngp-wjjbfuv (CREON 24) 24,000-76,000 -120,000 unit delayed release capsule Take 2 capsules by mouth three times a day with meals. folic acid 1 mg tablet [...] needed. LABORATORY VALUES: WBC (k/uL) Date Value 09/03/2023 10.43 RBC (m/uL) Date Value 09/03/2023 3.86 (L) Hemoglobin (g/dL) Date Value 09/03/2023 12.0 (L) Hematocrit (%) Date Value 09/03/2023 37.5 (L) MCV (fL) Date Value 09/03/2023 97.2 MCH (pg) Date Value 09/03/2023 31.1 MCHC (g/dL) Date Value 09/03/2023 32.0 RDW-CV (%) Date Value 09/03/2023 15.4 (H) Platelet Count (k/uL) Date Value 09/03/2023 359 MPV (fL) Date Value 09/03/2023 9.2 Glucose (mg/dL) Date Value 09/03/2023 103 (H) BUN (mg/dL) Date Value 09/03/2023 22 Creatinine (mg/dL) Date Value 09/03/2023 0.58 (L) Sodium (mmol/L) Date Value 09/03/2023 135 (L) Potassium (mmol/L) Date Value 09/03/2023 4.8 Chloride (mmol/L) Date Value 09/03/2023 101 CO2 (mmol/L) Date Value 09/03/2023 22 Protein, Total (g/dL) Date Value 09/03/2023 7.4 Albumin (g/dL) Date Value 09/03/2023 3.8 (L) Calcium, Total (mg/dL) Date Value 09/03/2023 9.7 Alkaline Phosphatase (U/L) Date Value 09/03/2023 126 (H) Bilirubin, Total (mg/dL) Date Value 09/03/2023 0.3 AST (U/L) Date Value 09/03/2023 16 ALT (U/L) Date Value 09/03/2023 13 DIAGNOSIS: (D50.8) Iron deficiency anemia secondary to inadequate dietary iron intake (primary encounter diagnosis) (C24.1) Cancer of ampulla of Vater (HCC) Plan: DISCONTINUED: cyanocobalamin 1,000 mcg injection (C80.1) Adenocarcinoma (HCC) Plan: DISCONTINUED: cyanocobalamin 1,000 mcg injection (D51.9) Anemia due to vitamin B12 deficiency, unspecified B12 deficiency type PAST MEDICAL HISTORY Diagnosis Date Anemia Anxiety Bleeding ulcer 11/15/2016 required 5 blood transfusions Coronary artery disease involving algaaciq coronary artery Diabetes mellitus (HCC) 2017 Duodenal cancer (HCC) Dyslipidemia Fatigue Glaucoma Hypertension Iron deficiency anemia secondary to inadequate dietary iron intake 09/10/2023 Myocardial infarction (HCC) 05/15/2011 PTSD (post-traumatic stress disorder) PAST SURGICAL HISTORY Procedure Laterality Date ANGIOPLASTY HX 05/15/2011 2 stents s/p OR;[facility] CHOLECYSTECTOMY 08/11/2017 [facility] COLONOSCOPY PAST SURGICAL HISTORY OF Cardiac Stents x2 PAST SURGICAL HISTORY OF 09/2017 [place] PICC LINE INSERT/CONSULT 08/16/2017 Social History Tobacco Use Smoking status: Former Types: Cigarettes Quit date: 2010 Years since quittin.2 Passive exposure: Past Smokeless tobacco: Never Vaping Use Vaping Use: Never used Substance Use Topics Alcohol use: Yes Alcohol/week: 1.0 standard drink of alcohol Types: 1 Cans of Beer (12oz) per week Comment: occasional beer Drug use: No FAMILY HISTORY Problem Relation Age of Onset Cancer Sister I spent a total of 30 minutes on the date of the service which included preparing to see the patient, [id number] patient care, completing clinical documentation, performing a medically appropriate examination, counseling and educating the patient/family/caregiver, ordering medications, tests, or procedures, independently interpreting results (not separately reported), communicating results to the patient/family/caregiver, and care coordination (not separately reported). Zahra May MD, CPE Hematology and Oncology Services Provided at: [facility], [place], [place] Scribe Attestation: This note was scribed by Rona Thomas on September 10, 2023 under the direction and supervision of Dr. Zahra May. I attest that all of the information documented is correct to the best of my knowledge. Provider Attestation: I, Zahra May MD, attest that all information documented by the above scribe is correct, and was supervised by me and under my direction. CC: Dr. David Caputo [address] [id number] documented in this encounter [facility] 09-10-2023 Note HNO ID: [id number] Author: ZAHRA MAY MD Service: ? Author Type: Physician Type: Progress Notes Filed: 09/10/2023 21:16 Note Text: NAME: Rocio Jackson CLINIC NO.: [id number] DATE OF SERVICE: September 10, 2023 (Iftikhar) Some elements in this clinic note that are critical to medical decision making have been carefully reviewed and included from a prior clinic note dated: March 11, 2023 (Iftikhar) Referring Provider: Dr. Vanessa Bejarano Additional Clinicians involved in Rocio Jackson's care: Dr. David Caputo CC: Follow up on anemia. 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 H/O iron deficiency anemia 3. Folate deficiency anemia 4. B12 deficiency anemia ASSESSMENT: Cancer of ampulla of Vater [...] Doing well on B12 and folate replacement. No evidence of recurrence. PLAN: B12 shot today and every 4 weeks. IV iron when approved (previously received Monoferric) Patient will continue folic acid 1 mg daily as Rx'd. continue following with Dr. Caputo for DMII management. RTC in 3 months Labs [address] scans in 6 months HPI: CASE HISTORY: Reverse Chronological Order 09/03/2023 - CT CAP: Chest: Persistent elevation of the right hemidiaphragm. Adjacent compression atelectasis in the right lung field, increased since 03/11/23. Interval resolution of previously noted patchy opacity in the lingula. Otherwise no evidence of intrathoracic metastases. A/P: Mild mesenteric mesenteric lymphadenopathy, increased since 03/11/23. Prominent motion artifact. 03/11/2023 - PET/CT: HEAD and NECK: No evidence of focal uptake to suggest FDG avid neoplastic process.. CHEST: Focal airspace opacity and groundglass nodule in the left lung base with mild FDG uptake, probably inflammatory in nature. Follow-up is recommended. ABDOMEN/PELVIS: No evidence of focal uptake to suggest FDG avid neoplastic process. Probably postsurgical inflammation in abdomen. EXTREMITIES/SKELETON: No evidence of focal uptake to suggest FDG avid neoplastic process.. 03/2022 - IV iron 02/06/2022 - CT chest abdomen and pelvis with IV contrast: Chest: New reticulonodular opacities in the right upper lobe most likely infectious/inflammatory in etiology. Marked motion artifact. Findings compatible with previous granulomatous disease. A/P: Nonspecific borderline mesenteric lymphadenopathy, stable since 02/20/20. New trace pelvic ascites. Nonspecific persistent diffuse thickening of the urinary bladder wall. Stool is noted throughout the colon.Prominent motion artifact. 08/15/2019 - CT chest abdomen and pelvis with IV contrast: Chest: Several mildly prominent central mesenteric lymph nodes are again identified, stable from the prior examination of 12/21/2018. Postoperative changes, compatible with prior Whipple's procedure. No CT evidence for recurrent mass. A/P: There has been interval development of minimal patchy groundglass opacity, as well as a small consolidative opacity within the left lingula, likely infectious/inflammatory nature. 2. No suspicious pulmonary nodule is appreciated. No substantial intrathoracic adenopathy is identified. Evidence for prior granulomatous disease. 12/21/2018 - CT CAP: Stable CT examination of the chest as above. Several mildly prominent central mesenteric lymph nodes are again identified, less conspicuous when compared to the prior study of 06/04/2018. Postoperative changes, compatible with prior Whipple's procedure. 04/2018 - IV iron given 11/13/2017-01/22/2018 - Adjuvant chemotherapy with Gemzar and Xeloda (Per Dr. 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 - Metastatic adenocarcinoma involving three of eleven lymph nodes (3/11). - Lymphovascular invasion and perineural invasion are seen. - Surgical resection margins are free of sarai (more content not included)... [facility] 09-10-2023 Instructions Rona Thomas - 09/10/2023 2:12 PM EDT B12 shot today and every 4 weeks. IV iron when approved (previously received Monoferric) Patient will continue folic acid 1 mg daily as Rx'd. continue following with Dr. Caputo for DMII management. RTC in 3 months Labs [address] scans in 6 months documented in this encounter [facility] 09-10-2023 Miscellaneous Notes Approved for free Creon until 06/28/2024. Patient should receive shipment in 5-7 business days. Artur Reynolds, Trisha, BCOP documented in this encounter [facility] 09-08-2023 Miscellaneous Notes Per insurance Zenpep is preferred and has better coverage at mail order for patient Artur Reynolds PharmD, BCOP documented in this encounter [facility] 09-04-2023 Miscellaneous Notes Spoke with Shiela this morning, advised her we need someone to stop in and sign application. Shiela gave me Rocio's RX insurance information and told me her brother will stop in to sign paperwork and can provide annual income. Advised Shiela that this process with Zelda can take up to a month to complete and that in the mean time there is a rx for Rocio at the [facility] in [place]. She verbalized understanding. Artur Reynolds PharmD, BCOP Daughter, Shiela called back to discuss free drug program information. Please call Cassandra Hernandez RN Printed free drug application for Zelda from [employer] website: left message for patient's daughter to return call to pharmacy to update. Application needs patient's prescription card info, household size, income, consent, and a signature prior to faxing. Dr. May's portion is in his folder awaiting his signature. Tosin Zendejas RPh Shiela aware we are working on this for her dad. She reports he has approximately 1 week left of Cremeena. She is aware we will update her soon. Cassandra Hernandez RN We can initiate a free drug application for Creon, which takes several weeks. We can also check to see if we have any in the Drug Repository. Creon cost is 1500 for a 3 mo supply. Pharmacist at [facility] called around for Zenpep (creon substitute) and JEANINEWilliams Remy is able to fill a 30 day supply for 600 dollars. Pharmacy: are there any programs to assist pt? Chris: pt has an appt with you tomorrow to discuss further Cassandra Hernandez RN documented in this encounter [facility] 09-03-2023 History of Present illness Narrative Radiology Service Progress Note PATIENT NAME: Rocio Jackson DATE OF SERVICE: September 03, 2023 TIME: 1:12 PM PATIENT IDENTITY VERIFICATION COMPLETED USING TWO (2) IDENTIFIERS: Name and Date of confirmed by patient verbally. FALL SCREENING: Has the patient had 2 falls in the last year or 1 fall with injury or currently using an Ambulatory Assistive Device (Walker, Cane, Wheelchair, Crutches, etc.)? No PATIENT GENDER DATA: Male PATIENT RELEVANT IMPLANT DATA REVIEWED: Not Applicable PATIENT PRESENTS WITH AN IMPLANTABLE OR ATTACHED LEAD PAINTER: No RADIOLOGY DEPARTMENT: CT; Exam(s) Completed: Chest Abdomen Pelvis PERIPHERAL IV DATA: Site assessment: Clean,Dry and Intact, Site disposition Discontinued SIGNED BY: RT Mahendra(R) September 03, 2023 1:12 PM Radiology Service Progress Note DATE OF SERVICE: September 03, 2023 TIME: 2:25 PM PATIENT WEIGHT: unable to weigh ptLBS PATIENT IDENTITY VERIFICATION COMPLETED USING TWO (2) STANDARD IDENTIFIERS: Name and Date of confirmed by patient verbally. FALL SCREENING: Has the patient had 2 falls in the last year or 1 fall with injury or currently using an Ambulatory Assistive Device (Walker, Cane, Wheelchair, Crutches, etc.)? Yes, Patient High Risk for Falls What interventions were put in place to prevent falls during this visit? Instructed Patient to Call for Help if Needed, Offered Assistance with Transfers/Clothing, Instructed Patient to Remain Seated (Not on Exam Table) Until Exam, and Increased Observations by Caregivers PATIENT GENDER DATA: Male ALLERGIES: Reviewed and unchanged CONTRAST ALLERGY: No EXAM: CT -CONTRAST INDUCED NEPHROPATHY RISK FACTORS: Patient age > 60 years CREATININE: Creatinine Date Value Ref Range Status 09/03/2023 0.58 (L) 0.73 - 1.22 mg/dL Final 03/11/2023 0.77 0.73 - 1.22 mg/dL Final 02/19/2023 0.72 (L) 0.73 - 1.22 mg/dL Final Estimated Glomerular Filtration Rate Date Value Ref Range Status 09/03/2023 108 >=60 mL/min/1.73m Final Comment: Estimated Glomerular Filtration Rate (eGFR) is calculated using the 2020 CKD-EPI creatinine equation. This equation utilizes serum creatinine, sex, and age as parameters. The creatinine assay has traceable calibration to isotope dilution-mass spectrometry. Refer to KDIGO guidelines for clinical interpretation. In patients with unstable renal function, e.g. those with acute kidney injury, the eGFR may not accurately reflect actual GFR. eGFR- Date Value Ref Range Status 02/20/2020 >60 Final P.O.C.T. RESULTS: POC done: Yes, See Lab Tab September 03, 2023 TREATMENT: N/A IV SITE: Ambulatory: A peripheral IV was started in the Left forearm with a Angio cath: 20 gauge. IV SITE APPEARANCE: Clean,Dry and Intact SIGNATURE: Fer Degroot RN PATIENT NAME: Rocio Jackson DATE: September 03, 2023 TIME: 2:25 PM documented in this encounter [facility] 09-03-2023 Miscellaneous Notes Encounter addended by: Fer Degroot RN on: 09/03/2023 2:26 PM Actions taken: Clinical Note Signed documented in this encounter [facility] 09-03-2023 Note Encounter addended b y: Fer Degroot RN on: 09/03/2023 2:26 PM Actions taken: Clinical Note Signed [facility] 09-03-2023 Note HNO ID: [id number] Author: LAUREN BONDS RT(R) Service: ? Author Type: Technologist Type: Progress Notes Filed: 09/03/2023 13:57 Note Text: Radiology Service Progress Note PATIENT NAME: Rocio Jackson DATE OF SERVICE: September 03, 2023 TIME: 1:12 PM PATIENT IDENTITY VERIFICATION COMPLETED USING TWO (2) IDENTIFIERS: Name and Date of confirmed by patient verbally. FALL SCREENING: Has the patient had 2 falls in the last year or 1 fall with injury or currently using an Ambulatory Assistive Device (Walker, Cane, Wheelchair, Crutches, etc.)? No PATIENT GENDER DATA: Male PATIENT RELEVANT IMPLANT DATA REVIEWED: Not Applicable PATIENT PRESENTS WITH AN IMPLANTABLE OR ATTACHED LEAD PAINTER: No RADIOLOGY DEPARTMENT: CT; Exam(s) Completed: Chest Abdomen Pelvis PERIPHERAL IV DATA: Site assessment: Clean,Dry and Intact, Site disposition Discontinued SIGNED BY: RT Mahendra(R) September 03, 2023 1:12 PM [facility] 09-03-2023 Note HNO ID: [id number] Author: FER DEGROOT RN Service: ? Author Type: Registered Nurse Type: Progress Notes Filed: 09/03/2023 14:26 Note Text: Radiology Service Progress Note DATE OF SERVICE: September 03, 2023 TIME: 2:25 PM PATIENT WEIGHT: unable to weigh ptLBS PATIENT IDENTITY VERIFICATION COMPLETED USING TWO (2) STANDARD IDENTIFIERS: Name and Date of confirmed by patient verbally. FALL SCREENING: Has the patient had 2 falls in the last year or 1 fall with injury or currently using an Ambulatory Assistive Device (Walker, Cane, Wheelchair, Crutches, etc.)? Yes, Patient High Risk for Falls What interventions were put in place to prevent falls during this visit? Instructed Patient to Call for Help if Needed, Offered Assistance with Transfers/Clothing, Instructed Patient to Remain Seated (Not on Exam Table) Until Exam, and Increased Observations by Caregivers PATIENT GENDER DATA: Male ALLERGIES: Reviewed and unchanged CONTRAST ALLERGY: No EXAM: CT -CONTRAST INDUCED NEPHROPATHY RISK FACTORS: Patient age > 60 years CREATININE: Creatinine Date Value Ref Range Status 09/03/2023 0.58 (L) 0.73 - 1.22 mg/dL Final 03/11/2023 0.77 0.73 - 1.22 mg/dL Final 02/19/2023 0.72 (L) 0.73 - 1.22 mg/dL Final Estimated Glomerular Filtration Rate Date Value Ref Range Status 09/03/2023 108 >=60 mL/min/1.73m? Final Comment: Estimated Glomerular Filtration Rate (eGFR) is calculated using the 2020 CKD-EPI creatinine equation. This equation utilizes serum creatinine, sex, and age as parameters. The creatinine assay has traceable calibration to isotope dilution-mass spectrometry. Refer to KDIGO guidelines for clinical interpretation. In patients with unstable renal function, e.g. those with acute kidney injury, the eGFR may not accurately reflect actual GFR. eGFR- Date Value Ref Range Status 02/20/2020 >60 Final P.O.C.T. RESULTS: POC done: Yes, See Lab Tab September 03, 2023 TREATMENT: N/A IV SITE: Ambulatory: A peripheral IV was started in the Left forearm with a Angio cath: 20 gauge. IV SITE APPEARANCE: Clean,Dry and Intact SIGNATURE: Fer Degroot RN PATIENT NAME: Rocio Jackson DATE: September 03, 2023 TIME: 2:25 PM [facility] 08-11-2023 Miscellaneous Notes ----- Message from Rick Zapata DO sent at 08/11/2023 7:07 AM EST ----- Please let patient know that he had duodenitis which is inflammation and he should be on a proton pump inhibitor such as omeprazole. He should take that for 8 weeks. He should follow up with Hematology. ThanksDr. Salgado Spoke with Sophia BATEMAN at [facility] regarding patient's pathology results. Sophia verbally understood. Informed Sophia I would fax results and clarification on dosage of Omeprazole. documented in this encounter [facility] 08-11-2023 Telephone encounter Note ----- Message from Rick Zapata DO sent at 08/11/2023 7:07 AM EST ----- Please let patient know that he had duodenitis which is inflammation and he should be on a proton pump inhibitor such as omeprazole. He should take that for 8 weeks. He should follow up with Hematology. [facility]. Salgado [facility] Telephone encounter Note Spoke with Sophia BATEMAN at [facility] regarding patient's pathology results. Sophia verbally understood. Informed Sophia Michael would fax results and clarification on dosage of Omeprazole. [facility] 07-14-2023 History general N arrative - Reported Type Medical History BMI 20.0-20.9, adult Medical History Paroxysmal atrial fibrillation Medical History Lumbar pain Medical History Essential hypertension Medical History Tachypnea on examination Medical History Dyspnea on exertion Medical History Anxiety, generalized Medical History Anemia, macrocytic Medical History Elevated LFTs Medical History Fatigue Medical History CAD in algaaciq artery Medical History Malignant neoplasm of duodenum Surgical History heart stent 2010 Surgical History stomach ulcer 2016 Surgical History gallbladder 2018 Surgical History whipple 2017 Surgical History colonoscopy 2019 Hospitalization History SEE SURGICAL HX [facility] Other 01-16-2024 Evaluation note* Encounter Date Diagnosis Assessment Notes Treatment Notes Treatment Clinical Notes Jun, Anxiety disorder, unspecified (ICD-10 - F41.9) [facility] Other 01-02-2024 Evaluation note* Encounter Date Diagnosis Assessment Notes Treatment Notes Treatment Clinical Notes Jun, Anxiety, generalized (ICD-10 - F41.1) [facility] Other 12-18-2023 History general Narrative - Reported* Type Description Date Medical History BMI 20.0-20.9, adult Medical History Paroxysmal atrial fibrillation Medical History Lumbar pain Medical History Essential hypertension Medical History Tachypnea on examination Medical History Dyspnea on exertion Medical History Anxiety, generalized Medical History Anemia, macrocytic Medical History Elevated LFTs Medical History Fatigue Medical History CAD in algaaciq artery Medical History Malignant neoplasm of duodenum Surgical History heart stent 2010 Surgical History stomach ulcer 2017 Surgical History gallbladder 2018 Surgical History whipple 2018 Surgical History colonoscopy 2019 Hospitalization History SEE SURGICAL HX [facility] Other 12-07-2023 Evaluation note* Encounter Date Diagnosis [...] Pain in left hand (ICD-10 - M79.642) [facility] Other 11-24-2023 Evaluation note* Encounter Date Diagnosis Assessment Notes Treatment Notes Treatment Clinical Notes Apr, Anxiety disorder, unspecified (ICD-10 - F41.9) [facility] Other 11-21-2023 Evaluation note* Encounter Date Diagnosis Assessment Notes Treatment Notes Treatment Clinical Notes Apr, Anxiety, generalized (ICD-10 - F41.1) [facility] Other 11-08-2023 Evaluation note* Encounter Date Diagnosis Assessment Notes Treatment Notes Treatment Clinical Notes Apr, Anxiety, generalized (ICD-10 - F41.1) [facility] Other 10-19-2023 History general Narrative - Reported* Type Description Date Medical History BMI 20.0-20.9, adult Medical History Paroxysmal atrial fibrillation Medical History Lumbar pain Medical History Essential hypertension Medical History Tachypnea on examination Medical History Dyspnea on exertion Medical History Anxiety, generalized Medical History Anemia, macrocytic Medical History Elevated LFTs Medical History Fatigue Medical History CAD in algaaciq artery Medical History Malignant neoplasm of duodenum Surgical History heart stent 2010 Surgical History stomach ulcer 2017 Surgical History gallbladder 2018 Surgical History whipple 2018 Surgical History colonoscopy 2019 Hospitalization History SEE SURGICAL HX [facility] Other 10-12-2023 Nurse Note* Srinivasan See Ma - 04/09/2023 2:56 PM EDT Patient Identification confirmed: yes. Injection given and documented on AUG per provider order. Srinivasan See Ma [facility] History general Narrative - Reported* Type Description Date Medical History BMI 20.0-20.9, adult Medical History Paroxysmal atrial fibrillation Medical History Lumbar pain Medical History Essential hypertension Medical History Tachypnea on examination Medical History Dyspnea on exertion Medical History Anxiety, generalized Medical History Anemia, macrocytic Medical History Elevated LFTs Medical History Fatigue Medical History CAD in algaaciq artery Medical History Malignant neoplasm of duodenum Surgical History heart stent 2010 Surgical History stomach ulcer 2017 Surgical History gallbladder 2018 Surgical History whipple 2018 Surgical History colonoscopy 2019 Hospitalization History SEE SURGICAL HX [facility] Other 10-10-2023 Evaluation note* Encounter Date Diagnosis Assessment Notes Treatment Notes Treatment Clinical Notes Mar, Anxiety, generalized (ICD-10 - F41.1) [facility] Other 10-02-2023 Miscellaneous Notes* Telephone Encounter - Rola Gordon APRN.CNP - 03/30/2023 4:04 PM EDT The following approved medication requests have been transmitted electronically. Requested Prescriptions Signed Prescriptions Disp Refills folic acid 1 mg tablet 90 tablet 3 Sig: Take 1 tablet by mouth once daily. Authorizing Provider: ORLA GORDON APRN.CNP [facility] note* Encounter Date Diagnosis Assessment Notes Treatment Notes Treatment Clinical Notes Feb, Anxiety disorder, unspecified (ICD-10 - F41.9) [facility] Other 09-18-2023 Miscellaneous Notes* Telephone Encounter - [...] Jones RN * Telephone Encounter - Zahra May MD - 03/16/2023 1:04 PM EDT PET [...] up based on results. [facility] Nurse Note* Lillian Marinelli MA - 03/11/2023 11:21 AM EDT Patient Identification confirmed: yes. Injection given and documented on AUG per provider order. Lillian Tucker MA [facility] Instructions* Patient Instructions* Zahra May MD - 03/11/2023 11:09 AM EDT B12 shot today and every 4 weeks. Patient will continue folic acid 1 mg daily as Rx'd. Triage to please call PET/CT results next week Determine follow up based on results. continue following with Dr. Caputo for DMII management. [facility] History of Present illness Narrative* Zahra May MD - 03/11/2023 10:45 AM EDT Images from the original note were not included. NAME: Rocio Jackson CLINIC NO.: [id number] DATE OF SERVICE: March 11, 2023 ([facility]) Some elements in this clinic note that [...] open wounds. CTCAP done late December in [place] concerning for possible metastatic disease. Updated Visit, [...] with his son Joaquin. Worked at a [employer]. Doing well overall is at his baseline. 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 His PFTs are pending, and he was [...] three times daily with meals.^Disp:90 tablet^Rfl: 1 [id number]-[id number] (CREON 24) 24,000-76,000 -120,000 unit delayed release [...] 5 blood transfusions Coronary artery disease involving algaaciq coronary artery Diabetes mellitus (HCC) 2017 Duodenal cancer (HCC) Dyslipidemia Fatigue Glaucoma Hypertension Myocardial infarction (HCC) 05/15/2011 PTSD (post-traumatic stress disorder) PAST SURGICAL HISTORY Procedure Laterality Date ANGIOPLASTY HX 05/15/2011 2 stents s/p OR;[facility] CHOLECYSTECTOMY 08/11/2017 [facility] COLONOSCOPY PAST SURGICAL HISTORY OF Cardiac Stents x2 PAST SURGICAL HISTORY OF 09/2017 [facility] PICC LINE INSERT/CONSULT 08/16/2017 Social History Tobacco [...] which included preparing to see the patient, ijxi-ri-otqt patient care, completing clinical documentation, performing a medically appropriate examination, counseling and educating the patient/family/caregiver, ordering medications, tests, or p rocedures, independently interpreting results (not separately reported), communicating results to the patient/family/caregiver, and care coordination (not separately reported). Zahra May MD, CPE Hematology and Oncology Services Provided at: [place], [place] CC: Dr. David Caputo [address] [facility] [phone] documented in this encounterOhiohealth Berger Hospital09-13-2023 History of Present illness Narrative* Susan Proctor, RT(R) - 03/11/2023 8:15 AM EDT RADIOLOGY SERVICE PROGRESS NOTE SERVICE DATE: 03/11/2023 SERVICE TIME: 10:00 AM PATIENT IDENTITY VERIFICATION COMPLETED USING TWO (2) STANDARD IDENTIFIERS: Name and Date of confirmed by patient verbally FALL SCREENING: Has the patient had 2 falls in the last year or 1 fall with injury or currently using an Ambulatory Assistive Device (Walker, Cane, Wheelchair, Crutches, etc.)? No PATIENT GENDER DATA: .male ALLERGIES: Reviewed and unchanged MEDICATIONS REVIEWED: Not applicable PATIENT RELEVANT IMPLANT DATA REVIEWED: Not Applicable CREATININE: Creatinine Date Value Ref Range Status 03/11/2023 0.77 0.73 - 1.22 mg/dL Final 02/19/2023 0.72 (L) 0.73 - 1.22 mg/dL Final 11/28/2022 0.90 0.73 - 1.22 mg/dL Final Estimated Glomerular Filtration Rate Date Value Ref Range Status 03/11/2023 99 >=60 mL/min/1.73m Final Comment: Estimated Glomerular Filtration Rate (eGFR) is calculated using the 2020 CKD-EPI creatinine equation. This equation utilizes serum creatinine, sex, and age as parameters. The creatinine assay has traceable calibration to isotope dilution- mass spectrometry. Refer to KDIGO guidelines for clinical interpretation. In patients with unstable renal function, e.g. those with acute kidney injury, the eGFRmay not accurately reflect actual GFR. eGFR- Date Value Ref Range Status 02/20/2020 >60 Final P.O.C.T. RESULTS: POC done: Yes, See Lab Tab March 11, [address] PERFORMED: No IV SITE: Ambulatory: A peripheral IV was started in the Left hand with a Angio cath: 24 gauge. POST EXAM PIV STATUS: Discontinued PROCEDURE TYPE: NM INJECT: PET/CT BODY SCAN. 6.0 mCi F18 FDG. No other medications given.. ADMINISTRATION TIME: 849 PATIENT DISCHARGED TO: Ambulatory patient, left [place] department area.. A Diagnostic radioactive procedure has taken place, with no further precautions necessary other than routine body substance precautions. More information regarding radiation safety can be found usingthis link: [email or web address] SIGNATURE: RT Jesus(Pilar) PATIENT NAME: Rocio Jackson DATE: March 11, 2023 TIME: 10:00 AM PAGER/CONTACT #: documented in this encounterOhiohealth Berger Hospital09-11-2023 History general Narrative - Reported* Type Description Date Medical History BMI 20.0-20.9, adult Medical History Paroxysmal atrial fibrillation Medical History Lumbar pain Medical History Essential hypertension Medical History Tachypnea on examination Medical History Dyspnea on exertion Medical History Anxiety, generalized Medical History Anemia, macrocytic Medical History Elevated LFTs Medical History Fatigue Medical History CAD in algaaciq artery Medical History Malignant neoplasm of duodenum Surgical History heart stent 2010 Surgical History stomach ulcer 2017 Surgical History gallbladder 2018 Surgical History whipple 2018 Surgical History colonoscopy 2019 Hospitalization History SEE SURGICAL HX [facility] Other 09-07-2023 History general Narrative - Reported* Type Description Date Medical History BMI 20.0-20.9, adult Medical History Paroxysmal atrial fibrillation Medical History Lumbar pain Medical History Essential hypertension Medical History Tachypnea on examination Medical History Dyspnea on exertion Medical History Anxiety, generalized Medical History Anemia, macrocytic Medical History Elevated LFTs Medical History Fatigue Medical History CAD in algaaciq artery Medical History Malignant neoplasm of duodenum Surgical History heart stent 2010 Surgical History stomach ulcer 2016 Surgical History gallbladder 2018 Surgical History whipple 2017 Surgical History colonoscopy 2019 Hospitalization History SEE SURGICAL HX [facility] Other 09-07-2023 Evaluation note* Encounter Date Diagnosis Assessment Notes Treatment Notes Treatment Clinical Notes Feb, SIRS (systemic inflammatory response syndrome) (ICD-10 - R65.10) Reviewed hospital notes and discharge summary. Overall improved. Feb, Coronary artery disease involving algaaciq coronary artery of algaaciq heart without angina pectoris (ICD-10 - I25.10) Chronic - continue followup w cardio and oncology. Feb, Type 2 diabetes mellitus with hyperglycemia, without long-term current use of insulin (ICD-10 - E11.65) Glucose improved from earlier this summer. Son will call with some readings at home. [facility] Other 09-07-2023 Miscellaneous Notes* Telephone Encounter - Lillian Tucker MA - 03/05/2023 11:34 AM EDT Patient has an appt on 03/11/23. Would you like labs, if so place orders. His PET scan is 03/11/23. Lillian Tucker MA documented in this encounterOhiohealth Berger Hospital08-24-2023 Instructions* Patient Instructions* Zahra May MD - 02/19/2023 4:16 PM EDT B12 shot today and every 4 weeks. Patient will continue folic acid 1 mg daily as Rx'd. PET/CT in 1-2 weeks RTC same day to review images. continue following with Dr. Caputo for DMII management. documented in this encounterOhiohealth Berger Hospital08-24-2023 History of Present illness Narrative* Zahra May MD - 02/19/2023 3:57 PM EDT Images from the original note were not included. NAME: Rocio Jackson CLINIC NO.: [id number] DATE OF SERVICE: February 19, 2023 ([facility]) Some elements in this clinic note that are critical to medical decision making have been carefully reviewed and included from a prior clinic note dated: November 28, 2022 ([facility]) Referring Provider: Dr. Vanessa Bejarano Additional Clinicians involved in Rociomarisa TorresRenetta's care: Dr. David Caputo CC: Follow up [...] open wounds. CTCAP done late December in [place] concerning for possible metastatic disease. Updated Visit, [...] with his son Joaquin. Worked at a [employer]. Doing well overall is at his baseline. 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 His PFTs are pending, and he was [...] by mouth three times daily with meals. owgijf-cobhdzrj-cibzfml (CREON 24) 24,000-76,000 -120,000 unit delayed release [...] 5 blood transfusions Coronary artery disease involving algaaciq coronary artery Diabetes mellitus (HCC) 2017 Duodenal cancer (HCC) Dyslipidemia Fatigue Glaucoma Hypertension Myocardial infarction (HCC) 05/15/2011 PTSD (post-traumatic stress disorder) PAST SURGICAL HISTORY Procedure Laterality Date ANGIOPLASTY HX 05/15/2011 2 stents s/p OR;[facility] CHOLECYSTECTOMY 08/11/2017 [facility] COLONOSCOPY PAST SURGICAL HISTORY OF Cardiac [...] which included preparing to see the patient, cgnu-rz-crod patient care, completing clinical documentation, performing a medically appropriate examination, counseling and educating the patient/family/caregiver, ordering medications, tests, or p rocedures, and independently interpreting results (not separately reported). Zahra May MD, CPE Hematology and Oncology Services Provided at: [place], [place] CC: Dr. David Caputo [address] [facility] [phone] documented in this encounterOhiohealth Berger Hospital08-22-2023 Miscellaneous Notes* Telephone Encounter - Livier Seay - 02/17/2023 2:14 PM EDT Patient has an appt on 02/19. Would you like labs? documented in this encounterOhiohealth Berger Hospital07-26-2023 Miscellaneous Notes* Telephone Encounter - Susan Jones RN - 01/21/2023 11:11 AM EDT FYI: Pt admitted to [facility] ICU. Presented w/ chest pain and elevated Troponin. 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 Dr Malhotra, Oncologist w/ the [facility] consulted. Copy of pt's last office note faxed to [phone]. Susan Jones RN documented in this encounterOhiohealth Berger Hospital07-19-2023 Evaluation note* Encounter Date Diagnosis Assessment Notes Treatment Notes Treatment Clinical Notes Dec, Anxiety, generalized (ICD-10 - F41.1) [facility] Other 07-19-2023 Miscellaneous Notes* Telephone Encounter - Cassandra Hernandez RN - 01/14/2023 8:03 AM EDT Spoke with Alise and she is aware of Chris's recommendation. She will inform Dr Lopez for the MRI W/ IV contrast. They will notify our office if pt needs seen once completed. Cassandra Hernandez RN * Telephone Encounter - Zahra May MD - 01/13/2023 5:05 PM EDT He [...] advise. Cassandra Hernandez RN documented in this encounterOhiohealth Berger Hospital07-07-2023 History general Narrative - Reported* Type Description Date Medical History BMI 20.0-20.9, adult Medical History Paroxysmal atrial fibrillation Medical History Lumbar pain Medical History Essential hypertension Medical History Tachypnea on examination Medical History Dyspnea on exertion Medical History Anxiety, generalized Medical History Anemia, macrocytic Medical History Elevated LFTs Medical History Fatigue Medical History CAD in algaaciq artery Medical History Malignant neoplasm of duodenum Surgical History heart stent 2010 Surgical History stomach ulcer 2017 Surgical History gallbladder 2018 Surgical History whipple 2017 Surgical History colonoscopy 2019 Hospitalization History SEE SURGICAL HX [facility] Other 07-06-2023 Evaluation note* Encounter Date Diagnosis [...] forward this info to for further help. [facility] Other 06-30-2023 Nurse Note* Livier Seay - 12/26/2022 4:03 PM EDT Patient Identification confirmed: yes. Injection given and documented on MAR per provider order. Livier Seay documented in this encounterOhiohealth Berger Hospital06-16-2023 History general Narrative - Reported* Type Description Date Medical History BMI 20.0-20.9, adult Medical History Paroxysmal atrial fibrillation Medical History Lumbar pain Medical History Essential hypertension Medical History Tachypnea on examination Medical History Dyspnea on exertion Medical History Anxiety, generalized Medical History Anemia, macrocytic Medical History Elevated LFTs Medical History Fatigue Medical History CAD in algaaciq artery Medical History Malignant neoplasm of duodenum Surgical History heart stent 2010 Surgical History stomach ulcer 2016 Surgical History gallbladder 2018 Surgical History whipple 2018 Surgical History colonoscopy 2019 Hospitalization History SEE SURGICAL HX [facility] Other 2023 Evaluation note* Encounter Date Diagnosis Assessment Notes Treatment Notes Treatment Clinical Notes Nov, Anxiety, generalized (ICD-10 - F41.1) Nov, Type 2 diabetes mellitus without complication, without long-term current use of insulin (ICD-10 - E11.9) Samples given from office [place] - followup in 1 month. [facility] Other 06-02-2023 Nurse Note* Lillian Tucker MA - 11/28/2022 4:02 PM EDT Patient Identification confirmed: yes. Injection given and documented on MAR per provider order. Lillian Tucker MA documented in this encounterOhiohealth Berger Hospital06-02-2023 Instructions* Patient Instructions* Zahra May MD - 11/28/2022 3:42 PM EDT B12 shot today and every 4 weeks. Patient will continue folic acid 1 mg daily as Rx'd. Follow up in 8 weeks for labs and B12. Needs to follow up with Dr. Caputo regarding blood sugars >400 - please send office the labs result. documented in this encounterOhiohealth Berger Hospital06-02-2023 History of Present illness Narrative* Zahra May MD - 11/28/2022 3:37 PM EDT Images from the original note were not included. NAME: Rocio Jackson CLINIC NO.: [id number] DATE OF SERVICE: November 28, 2022 ([facility]) [...] with his son Joaquin. Worked at a [employer]. Doing well overall is at his baseline. 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 His PFTs are pending, and he was [...] the tongue every 5 minutes as needed. 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 Plan: cubidu-oqtdsdcm-mmqnltr (CREON 24) 24,000-76,000 -120,000 unit delayed release capsule PAST MEDICAL HISTORY Diagnosis Date Anemia Anxiety Bleeding ulcer 11/15/2016 required 5 blood transfusions Coronary artery disease involving algaaciq coronary artery Diabetes mellitus (HCC) 2017 Duodenal cancer (HCC) Dyslipidemia Fatigue Glaucoma Hypertension Myocardial infarction (HCC) 05/15/2011 PTSD (post-traumatic stress disorder) PAST SURGICAL HISTORY Procedure Laterality Date ANGIOPLASTY HX 05/15/2011 2 stents s/p OR;[facility] CHOLECYSTECTOMY 08/11/2017 [facility] COLONOSCOPY PAST SURGICAL HISTORY OF Cardiac Stents x2 PAST SURGICAL HISTORY OF 09/2017 [place] PICC LINE INSERT/CONSULT 08/16/2017 Social History Tobacco [...] which included preparing to see the patient, tbnu-lm-afme patient care, completing clinical documentation, performing a medically appropriate examination, counseling and educating the patient/family/caregiver, ordering medications, tests, or p rocedures, and independently interpreting results (not separately reported). Zahra May MD, CPE Hematology and Oncology Services Provided at: [place], [place] CC: Dr. David Caputo [address] [place] [phone] documented in this encounterOhiohealth Berger Hospital06-01-2023 Evaluation note* Encounter Date Diagnosis Assessment Notes Treatment Notes Treatment Clinical Notes Nov, Lumbar pain (ICD-10 - M54.50) [facility] Other 05-26-2023 Evaluation note* Encounter Date Diagnosis Assessment Notes Treatment Notes Treatment Clinical Notes October, Anxiety, generalized (ICD-10 - F41.1) [facility] Other 05-05-2023 Nurse Note* Lillian Tucker MA - 10/31/2022 3:35 PM EDT Patient Identification confirmed: yes. Injection given and documented on AUG per provider order. Lillian Tucker MA documented in this encounterOhiohealth Berger Hospital05-03-2023 Miscellaneous Notes* Telephone Encounter - Rola Gordon APRN.CNP - 10/29/2022 2:43 PM EDT The following approved medication requests have been transmitted electronically. Requested Prescriptions Signed Prescriptions Disp Refills metoclopramide HCl (REGLAN) 10 mg tablet 90 tablet 1 Sig: Take 1 tablet by mouth three times daily with meals. Authorizing Provider: ROLA GORDON APRN.CNP documented in this encounterOhiohealth Berger Hospital05-02-2023 History general Narrative - Reported* Type Description Date Medical History BMI 20.0-20.9, adult Medical History Paroxysmal atrial fibrillation Medical History Lumbar pain Medical History Essential hypertension Medical History Tachypnea on examination Medical History Dyspnea on exertion Medical History Anxiety, generalized Medical History Anemia, macrocytic Medical History Elevated LFTs Medical History Fatigue Medical History CAD in algaaciq artery Medical History Malignant neoplasm of duodenum Surgical History heart stent 2010 Surgical History stomach ulcer 2017 Surgical History gallbladder 2018 Surgical History whipple 2018 Surgical History colonoscopy 2019 Hospitalization History SEE SURGICAL [facility] Other 04-07-2023 Nurse Note* Livier Seay - 10/03/2022 4:04 PM EDT Patient Identification confirmed: yes . Injection given and documented on MAR per provider order. Livier Seay documented in this encounterOhiohealth Berger Hospital03-10-2023 Nurse Note* Lillian Tucker MA - 09/05/2022 2:16 PM EST Patient Identification confirmed: yes. Injection given and documented on MAR per provider order. Lillian Tucker MA documented in this encounterOhiohealth Berger Hospital02-22-2023 Miscellaneous Notes* Telephone Encounter - Rola Gordon APRN.CNP - 08/20/2022 10:08 AM EST The following approved medication requests have been transmitted electronically. Requested Prescriptions Signed Prescriptions Disp Refills metoclopramide HCl (REGLAN) 10 mg tablet 90 tablet 1 Sig: Take 1 tablet by mouth three times daily with meals. Authorizing Provider: ROLA GORDON APRN.CNP documented in this encounterOhiohealth Berger Hospital02-10-2023 Instructions* Patient Instructions* Zahra May MD - 08/08/2022 3:14 PM EST B12 shot today and every 4 weeks. Patient will continue folic acid 1 mg daily as Rx'd. RTC in 8 weeks for follow-up, labs and B12 See Rola Dee documented in this encounterOhiohealth Berger Hospital02-10-2023 History of Present illness Narrative* Zahra May MD - 08/08/2022 3:00 PM EST Images from the original note were not included. NAME: Rocio Jackson CLINIC NO.: [id number] DATE OF SERVICE: August 08, 2022 ([facility]) Some elements in this clinic note that [...] with his son Joaquin. Worked at a [employer]. Doing well overall is at his baseline. 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 His PFTs are pending, and he was [...] MOUTH THREE TIMES A DAY WITH MEALS tdoigp-liulrtmg-hbwwzrs (CREON 24) 24,000-76,000 -120,000 unit delayed release [...] 5 blood transfusions Coronary artery disease involving algaaciq coronary artery Diabetes mellitus (HCC) 2017 Duodenal cancer (HCC) Dyslipidemia Fatigue Glaucoma Hypertension Myocardial infarction (HCC) 05/15/2011 PTSD (post-traumatic stress disorder) PAST SURGICAL HISTORY Procedure Laterality Date ANGIOPLASTY HX 05/15/2011 2 stents s/p OR;[facility] CHOLECYSTECTOMY 08/11/2017 [facility] COLONOSCOPY PAST SURGICAL HISTORY OF Cardiac [...] which included preparing to see the patient, wjkr-iy-abtj patient care, completing clinical documentation, obtaining and/or reviewing separately obtained history, performing a medically appropriate examination, counseling and educating the pat ient/family/caregiver and ordering medications, tests, or procedures. Zahra May MD, CPE [place], [place] CC: David Caputo MD [address] [place] [phone] documented in this encounterOhiohealth Berger Hospital02-10-2023 Miscellaneous Notes* Telephone Encounter - Magalys Cruz RN - 08/08/2022 2:37 PM EST Received call from Paty at [facility] Lab with urgent result: Glucose 501 Magalys Cruz RN documented in this encounterOhiohealth Berger Hospital01-19-2023 Evaluation note* Encounter Date Diagnosis Assessment Notes Treatment Notes Treatment Clinical Notes Jun, CAD in algaaciq artery (ICD-10 - I25.10) Continue medications as prescribed Jun, Atypical chest pain (ICD-10 - R07.89) Called [facility] message to return my call. Patient has appointment 09/16. Requested moved up appointment and consider testing at their office as I know they would prefer. 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 Continues remission [facility] Other 01-09-2023 Miscellaneous Notes* Telephone Encounter - [...] recurrence.Thanks for calling him documented in this encounterOhiohealth Berger Hospital01-05-2023 Nurse Note* Livier Seay - 07/03/2022 3:01 PM EST Patient Identification confirmed: yes. Injection given and documented on AUG per provider order. Livier Seay documented in this encounterOhiohealth Berger Hospital01-05-2023 Instructions* Patient Instructions* Zahra May MD - 07/03/2022 2:18 PM EST B12 shot today and every [address] results pending today Triage to call results Thursday Patient will continue folic acid 1 mg daily as Rx'd. RTC in 4 weeks for follow-up, labs and B12 See Rola / Leila documented in this encounterOhiohealth Berger Hospital01-05-2023 History of Present illness Narrative* Zahra May MD - 07/03/2022 2:12 PM EST Images from the original note were not included. NAME: Rocio Jackson CLINIC NO.: [id number] DATE OF SERVICE: July 03, 2022 ([facility]) [...] with his son Joaquin. Worked at a [employer]. Doing well overall is at his baseline. 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 His PFTs are pending, and he was [...] MOUTH THREE TIMES A DAY WITH MEALS yiogoa-ixcoohdi-ecrbrep (CREON 24) 24,000-76,000 -120,000 unit delayed release [...] 5 blood transfusions Coronary artery disease involving algaaciq coronary artery Diabetes mellitus (HCC) 2017 Duodenal cancer (HCC) Dyslipidemia Fatigue Glaucoma Hypertension Myocardial infarction (HCC) 05/15/2011 PTSD (post-traumatic stress disorder) PAST SURGICAL HISTORY Procedure Laterality Date ANGIOPLASTY HX 05/15/2011 2 stents s/p OR;[facility] CHOLECYSTECTOMY 08/11/2017 [facility] COLONOSCOPY PAST SURGICAL HISTORY OF Cardiac [...] which included preparing to see the patient, mfbl-rq-qsfo patient care, completing clinical documentation, obtaining and/or reviewing separately obtained history, performing a medically appropriate examination, counseling and educating the pat ient/family/caregiver and ordering medications, tests, or procedures. Zahra May MD, CPE [place], [place] CC: David Caputo MD [address] [place] [phone] documented in this encounterOhiohealth Berger Hospital01-05-2023 History of Present illness Narrative* Susan Proctor, RT(R) - 07/03/2022 12:30 PM EST RADIOLOGY SERVICE PROGRESS NOTE SERVICE DATE: 07/03/2022 SERVICE TIME: 12:49 PM PATIENT IDENTITY VERIFICATION COMPLETED USING TWO (2) STANDARD IDENTIFIERS: Name and Date of confirmed by patient verbally FALL SCREENING: Has the patient had 2 falls in the last year or 1 fall with injury or currently using an Ambulatory Assistive Device (Walker, Cane, Wheelchair, Crutches, etc.)? Yes, Patient High Riskfor Falls What interventions were put in place to prevent falls during this visit? Instructed Patient to Callfor Help if Needed and Increased Observations by Caregivers PATIENT GENDER DATA: .male : No ALLERGIES: Reviewed and unchanged MEDICATIONS REVIEWED: Not applicable PATIENT RELEVANT IMPLANT DATA REVIEWED: Not Applicable CREATININE: Creatinine Date Value Ref Range Status 06/06/2022 0.75 0.73 - 1.22 mg/dL Final 05/08/2022 0.76 0.73 - 1.22 mg/dL Final 04/03/2022 0.73 0.73 - 1.22 mg/dL Final Estimated Glomerular Filtration Rate Date Value Ref Range Status 06/06/2022 101 >=60 mL/min/1.73m Final Comment: Estimated Glomerular Filtration Rate (eGFR) is calculated using the 2020 CKD-EPI creatinine equation. This equation utilizes serum creatinine, sex, and age as parameters. The creatinine assay has traceable calibration to isotope dilution- mass spectrometry. Refer to KDIGO guidelines for clinical interpretation. In patients with unstable renal function, e.g. those with acute kidney injury, the eGFRmay not accurately reflect actual GFR. eGFR- Date Value Ref Range Status 02/20/2020 >60 Final P.O.C.T. RESULTS: N/A July 03, [address] PERFORMED: Yes. RADIOLOGIST NOTIFIED?: No CONTRAST ALLERGY: NO. PREMEDICATED: Not applicable CONTRAST: IV 125 ml IV contrast (300) given and Oral Omnipaque 240 DIABETIC PATIENT: Not applicable IV SITE: Ambulatory: A peripheral IV was started in the Right antecubital site with a Angio cath: 20 gauge. POST EXAM PIV STATUS: Discontinued PROCEDURE TYPE: CT Chest/Abdomen/Pelvis with contrast PATIENT DISCHARGED TO: Ambulatory patient, left [place] department area. A Diagnostic radioactive procedure has taken place, with no further precautions necessary other than routine body substance precautions. More information regarding radiation safety can be found usingthis link: [email or web address] SIGNATURE: RT Jesus(Pilar) PATIENT NAME: Rocio Jackson DATE: July 03, 2022 TIME: 12:49 PM PAGER/CONTACT #: documented in this encounterOhiohealth [facility] Hospital12-09-2022 History of Present illness Narrative* Sandra Gomez 06/06/2022 2:34 PM EST Patient Identification confirmed: yes. Injection given and documented on AUG per provider order. Sandra Kaylyn documented in this encounterOhiohealth Berger Hospital12-09-2022 Instructions* Patient Instructions* Zahra May MD - 06/06/2022 2:23 PM EST B12 shot today and every 4 weeks. Labs pending today Triage to call results Thursday Monoferric 1000 mg if indicated. Patient will continue folic acid 1 mg daily as Rx'd. RTC in 4 weeks for follow-up, labs and B12 and CT's RTC same day as scans and labs documented in this encounterOhiohealth Berger Hospital12-09-2022 History of Present illness Narrative* Zahra May MD - 06/06/2022 1:57 PM EST Images from the original note were not included. NAME: Rocio Jackson CLINIC NO.: [id number] DATE OF SERVICE: June 06, 2022 (Iftikhar) [...] with his son Joaquin. Worked at a [employer]. Doing well overall is at his baseline. 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 His PFTs are pending, and he was [...] MOUTH THREE TIMES A DAY WITH MEALS azezpi-upycxucf-myxvjam (CREON 24) 24,000-76,000 -120,000 unit delayed release [...] 5 blood transfusions Coronary artery disease involving algaaciq coronary artery Diabetes mellitus (HCC) 2017 Duodenal cancer (HCC) Dyslipidemia Fatigue Glaucoma Hypertension Myocardial infarction (HCC) 05/15/2011 PTSD (post-traumatic stress disorder) PAST SURGICAL HISTORY Procedure Laterality Date ANGIOPLASTY HX 05/15/2011 2 stents s/p OR;[facility] CHOLECYSTECTOMY 08/11/2017 [facility] COLONOSCOPY PAST SURGICAL HISTORY OF Cardiac [...] which included preparing to see the patient, iczh-ly-rqva patient care, completing clinical documentation, obtaining and/or reviewing separately obtained history, performing a medically appropriate examination, counseling and educating the pat ient/family/caregiver and ordering medications, tests, or procedures. Zahra May MD, CPE [place], [place] CC: David Caputo MD [facility] [phone] documented in this encounterOhiohealth Berger Hospital11-15-2022 NotePROCEDURE: XR HIP LT 2 3V W PELVIS HISTORY: Low back pain ; acute left hip pain since falling one week ago COMPARISON: None. FINDINGS: BONES:No fracture, acute abnormality, or significant arthropathy. SOFT TISSUES:No visible soft tissue swelling. EFFUSION:None visible. OTHER: Negative. IMPRESSION: 1. No acute bone abnormality or significant degenerative joint disease. Electronically authenticated by: REBA REID Date: 2022-05-13 07:57[facility]11-10-2022 History of Present illness Narrative* Zahra May MD - 05/08/2022 2:00 PM EST Images from the original note were not included. NAME: Rocio Jackson CLINIC NO.: [id number] DATE OF SERVICE: May 08, 2022 ([facility]) Some elements in this clinic note that are critical to medical decision making have been carefully reviewed and included from a prior clinic note dated: April 10, 2022 ([facility]) Referring Provider: Dr. 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 His PFTs are pending, and he was [...] petechiae. ALLERGIES: ALLERGIES No Known Allergies MEDICATIONS: yhuqlu-etdzfuee-wzlrnxi (CREON 24) 24,000-76,000 -120,000 unit delayed release [...] 5 blood transfusions Coronary artery disease involving algaaciq coronary artery Diabetes mellitus (HCC) 2017 Duodenal cancer (HCC) Dyslipidemia Fatigue Glaucoma Hypertension Myocardial infarction (HCC) 05/15/2011 PTSD (post-traumatic stress disorder) PAST SURGICAL HISTORY Procedure Laterality Date ANGIOPLASTY HX 05/15/2011 2 stents s/p OR;[facility] CHOLECYSTECTOMY 08/11/2017 [facility] COLONOSCOPY PAST SURGICAL HISTORY OF Cardiac [...] which included preparing to see the patient, wpgk-ob-ibob patient care, completing clinical documentation, obtaining and/or reviewing separately obtained history, performing a medically appropriate examination, counseling and educating the pat ient/family/caregiver and ordering medications, tests, or procedures. Zahra May MD, [place], [place] CC: David Caputo MD [address] [place] [phone] documented in this encounterOhiohealth Berger Hospital11-10-2022 Instructions* Patient Instructions* Zahra May MD - 05/08/2022 1:59 PM EST B12 shot today and every 4 weeks. Labs pending today Triage to call results tomorrow Monoferric 1000 mg if indicated. Patient will continue folic acid 1 mg daily as Rx'd. RTC in 4 weeks for follow-up, labs and B12. Will need repeat CT in 2 months for reticulonodular / inflammatory changes. documented in this encounterOhiohealth Berger Hospital10-13-2022 History of Present illness Narrative* Sofia Crouch RN - 04/10/2022 2:29 PM EDT Spoke with Pharmacy. Monoferric can be ran over 20 minutes and premeds can be omitted today per infusion protocol. Pt had recent infusion with no issues. Sofia Crouch RN documented in this encounterOhiohealth Berger Hospital10-13-2022 Instructions* Patient Instructions* Zahra May MD - 04/10/2022 1:30 PM EDT B12 shot today and every 4 weeks. Labs again today please Monoferric 1000 mg today. Patient will start folic acid 1 mg daily as soon as the prescription is filled. RTC in 4 weeks for follow-up, labs and B12. Will need repeat CT in 3 months for reticulonodular / inflammatory changes. documented in this encounterOhiohealth Berger Hospital10-13-2022 History of Present illness Narrative* Zahra May MD - 04/10/2022 1:08 PM EDT Images from the original note were not included. NAME: Rocio Jackson CLINIC NO.: [id number] DATE OF SERVICE: April 10, 2022 (Iftikhar) Some elements in this clinic note that are critical to medical decision making have been carefully reviewed and included from a prior clinic note dated: March 13, 2022 ([place]) Referring Provider: Dr. 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 His PFTs are pending, and he was [...] petechiae. ALLERGIES: ALLERGIES No Known Allergies MEDICATIONS: snqkvg-rsqcjgqb-epgpxkc (CREON 24) 24,000-76,000 -120,000 unit delayed release [...] 5 blood transfusions Coronary artery disease involving algaaciq coronary artery Diabetes mellitus (HCC) 2017 Duodenal cancer (HCC) Dyslipidemia Fatigue Glaucoma Hypertension Myocardial infarction (HCC) 05/15/2011 PTSD (post-traumatic stress disorder) PAST SURGICAL HISTORY Procedure Laterality Date ANGIOPLASTY HX 05/15/2011 2 stents s/p OR;[facility] CHOLECYSTECTOMY 08/11/2017 [facility] COLONOSCOPY PAST SURGICAL HISTORY OF Cardiac [...] which included preparing to see the patient, ygdt-tc-ldlb patient care, completing clinical documentation, obtaining and/or reviewing separately obtained history, performing a medically appropriate examination, counseling and educating the pat ient/family/caregiver and ordering medications, tests, or procedures. Zahra May MD, CPE [place], [place] CC: David Caputo MD [address] [place] [phone] documented in this encounterOhiohealth Berger Hospital10-12-2022 Miscellaneous Notes* Telephone Encounter - Lillian Tucker MA - 04/09/2022 11:43 AM EDT Patient has an appt on 04/10/22. Would you like labs, if so place orders, your orders are for everyother week. Lillian Tucker MA documented in this encounterOhiohealth Berger Hospital09-29-2022 Miscellaneous Notes* Telephone Encounter - Rola Gordon APRN.CNP - 03/27/2022 11:27 AM EDT The following approved medication requests have been transmitted electronically. Requested Prescriptions Signed Prescriptions Disp Refills ooimnm-lstqibfm-qmrawrz (CREON 24) 24,000-76,000 -120,000 unit delayed release capsule 540 capsule 1 Sig: Take 2 capsules by mouth three times daily with meals. Authorizing Provider: ROLA GORDON APRN.CNP * Telephone Encounter - Imelda Reynolds RPh - 03/27/2022 8:30 AM EDT Patient's insurance plan covers a 90 day supply. 90 day script pending. documented in this encounterOhiohealth Berger Hospital09-15-2022 Miscellaneous Notes* Telephone Encounter - Rola Gordon APRN.CNP - 03/13/2022 2:25 PM EDT The following approved medication requests have been transmitted electronically. Requested Prescriptions Signed Prescriptions Disp Refills folic acid 1 mg tablet 90 tablet 3 Sig: Take 1 tablet by mouth once daily. Authorizing Provider: ROLA GORDON APRN.CNP documented in this encounterOhiohealth Berger Hospital09-15-2022 History of Present illness Narrative* Rola Gordon APRN.CNP - 03/13/2022 1:00 PM EDT Images from the original note were not included. NAME: Rocio Jackson CLINIC NO.: [id number] DATE OF SERVICE: March 13, 2022 Some elements in this clinic note that are critical to medical decision making have been carefully reviewed and included from a prior clinic note dated: February 13, 2022. Referring Provider: Dr. Vanessa Bejarano Additional Clinicians involved in Rocio Renetta's care: Dr. David Caputo CC: Follow up [...] 1000 mg today. 3. 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 Will send a new prescription to patient's pharmacy of choice, [facility] in [place]. 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 His PFTs are pending, and he was [...] by mouth three times daily with meals. eyujso-pmtepxve-vldtrka (CREON 24) 24,000-76,000 -120,000 unit delayed release [...] 5 blood transfusions Coronary artery disease involving algaaciq coronary artery Diabetes mellitus (HCC) 2017 Duodenal cancer (HCC) Dyslipidemia Fatigue Glaucoma Hypertension Myocardial infarction (HCC) 05/15/2011 PTSD (post-traumatic stress disorder) PAST SURGICAL HISTORY Procedure Laterality Date ANGIOPLASTY HX 05/15/2011 2 stents s/p OR;[facility] CHOLECYSTECTOMY 08/11/2017 [facility] COLONOSCOPY PAST SURGICAL HISTORY OF Cardiac [...] of Onset Cancer Sister Rola Gordon APRN.CNP [place], [place] CC: Zahra May MD [address] [place] [address] [facility] [address] David Caputo MD [address] [place] [phone] I spent a total of 30 minutes on the date of the service which included preparing to see the patient, lhji-hm-jnkn patient care, completing clinical documentation, obtaining and/or reviewing separately obtained history, performing a medically appropriate examination, counseling and educating the pat ient/family/caregiver, ordering medications, tests, or procedures, independently interpreting results (not separately reported), and communicating results to the patient/family/caregiver. documented in this encounterOhiohealth Berger Hospital09-15-2022 Miscellaneous Notes* [facility] 10:51 AM EDT 1st report of treatment-Non oncology regimen (Monoferric) Patient holds Medicare coverage and therefore no FA required. documented in this encounterOhiohealth Berger Hospital09-02-2022 History of Present illness Narrative* TRACI Andrade - 02/28/2022 9:33 AM EDT Patient is listed on the First Time Treatment Report. Patient is scheduled to receive a non-oncology treatment. No psychosocial assessment is indicated. MARINO Andrade documented in this encounterOhiohealth Berger Hospital08-22-2022 Miscellaneous Notes* Telephone Encounter - Cassandra [...] she is aware it is ready for picking machine operator helper. Cassandra Hernandez RN documented in this encounterOhiohealth Berger Hospital08-18-2022 Nurse Note* Livier Seay - 02/13/2022 3:23 PM EDT Patient Identification confirmed: yes. Injection given and documented on AUG per provider order. Livier Seay documented in this encounterOhiohealth Berger Hospital08-18-2022 History of Present illness Narrative* Zahra May MD - 02/13/2022 2:48 PM EDT Images from the original note were not included. 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 His PFTs are pending, and he was [...] by mouth three times daily with meals. jjzfkf-nrwjpzgb-maabdeb (CREON 24) 24,000-76,000 -120,000 unit delayed release [...] 5 blood transfusions Coronary artery disease involving algaaciq coronary artery Diabetes mellitus (HCC) 2017 Duodenal cancer (HCC) Dyslipidemia Fatigue Glaucoma Hypertension Myocardial infarction (HCC) 05/15/2011 PTSD (post-traumatic stress disorder) PAST SURGICAL HISTORY Procedure Laterality Date ANGIOPLASTY HX 05/15/2011 2 stents s/p OR;[facility] CHOLECYSTECTOMY 08/11/2017 [facility] COLONOSCOPY PAST SURGICAL HISTORY OF Cardiac Stents x2 PAST SURGICAL HISTORY OF 09/2017 [place] PICC LINE INSERT/CONSULT 08/16/2017 Social History Tobacco [...] which included preparing to see the patient, tmde-vj-powy patient care, completing clinical documentation, obtaining and/or reviewing separately obtained history, performing a medically appropriate examination, counseling and educating the pat ient/family/caregiver and ordering medications, tests, or procedures. Zahra May MD, CPE [place], [place] CC: Zahra May MD [address] [place] [address] [place] [address] David Caputo MD [address] [place] [phone] documented in this encounterOhiohealth Berger Hospital08-17-2022 Miscellaneous Notes* Telephone Encounter - Rola [...] be sent to [facility] in [place]. CHRIS: Order pending. Please review and sign. Magalys Cruz RN documented in this encounterOhiohealth Berger Hospital08-15-2022 Miscellaneous Notes* Telephone Encounter - Rola [...] new script can be placed. Thanks Veronica Hall, RN documented in this encounterOhiohealth Berger Hospital08-11-2022 History of Present illness Narrative* Susan Proctor RT(R) - 02/06/2022 1:00 PM EDT Radiology Service Progress Note PATIENT NAME: Rocio Jackson DATE OF SERVICE: February 06, 2022 TIME: 1:27 PM PATIENT IDENTITY VERIFICATION COMPLETED USING TWO (2) IDENTIFIERS: Name and Date of confirmedby patient verbally. FALL SCREENING: Has the patient had 2 falls in the last year or 1 fall with injury or currently using an Ambulatory Assistive Device (Walker, Cane, Wheelchair, Crutches, etc.)? No PATIENT GENDER DATA: Male PATIENT RELEVANT IMPLANT DATA REVIEWED: Not Applicable RADIOLOGY DEPARTMENT: CT; Exam(s) Completed: Chest Abdomen Pelvis With IV and Oral contrast PERIPHERAL IV DATA: Site assessment: Clean,Dry and Intact, Site disposition Discontinued SIGNED BY: RT Jesus(R) February 06, 2022 1:27 PM documented in this encounterOhiohealth Berger Hospital07-21-2022 Evaluation note* Encounter Date Diagnosis Assessment [...] WILL ORDER SOME TESTING AT THIS TIME [employer] Other 06-09-2022 Nurse Note* Srinivasan See Ma - 12/05/2021 3:09 PM EDT Patient unsure of any of his medications and was instructed to bring a list next time he comes. Srinivasan See Ma documented in this encounterOhiohealth Berger Hospital06-09-2022 History of Present illness Narrative* Zahra May MD - 12/05/2021 3:00 PM EDT Images from the original note were not included. 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 His PFTs are pending, and he was [...] mg by mouth twice daily before meals. mypewn-pasybckh-fwnxdbr (CREON 24) 24,000-76,000 -120,000 unit cpDR Take [...] CA 19-9 BLD (K31.5) Duodenal obstruction Plan: smtbrs-blpdpxwi-fltxtmy (CREON 24) 24,000-76,000 -120,000 unit delayed release capsule (D50.9) Iron deficiency anemia, unspecified iron deficiency anemia type Plan: hkilio-nxouktcu-xfmdntc (CREON 24) 24,000-76,000 -120,000 unit delayed release [...] 5 blood transfusions Coronary artery disease involving algaaciq coronary artery Diabetes mellitus (HCC) 2017 Duodenal cancer (HCC) Dyslipidemia Fatigue Glaucoma Hypertension Myocardial infarction (HCC) 05/15/2011 PTSD (post-traumatic stress disorder) PAST SURGICAL HISTORY Procedure Laterality Date ANGIOPLASTY HX 05/15/2011 2 stents s/p OR;[facility] CHOLECYSTECTOMY 08/11/2017 [facility] COLONOSCOPY PAST SURGICAL HISTORY OF Cardiac [...] which included preparing to see the patient, fpag-ca-vlrg patient care, completing clinical documentation, obtaining and/or reviewing separately obtained history, performing a medically appropriate examination, counseling and educating the pat ient/family/caregiver and ordering medications, tests, or procedures. Zahra May MD, [facility] [place], [place] CC: Zahra May MD [address] [place] [address] [facility] [address] David Caputo MD [address] [place] [phone] documented in this encounterOhiohealth Berger Hospital12-16-2021 Progress note Author Monico Reyez [facility] June 13, 2021 2:01pm Note Date/Time June 13, 2021 2:00pm [facility] at [address] [address] Hem/Onc Follow Up Note - OP Signed Patient: Rocio Jackson MR#: [id number] : 1955 Acct:[id number] Age/Sex: 66 / M Type: REG RCR [...] of the ampulla of Vater resected the [facility] number of years ago and then had adjuvant chemotherapy while I was at [facility]. Rocio is a patient well-known to me. 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 He has been followed since that time. Labs recently drawn at [place] and are overall negative except for mild macrocytosis. He appears to be doing overall very well Subjective/ROS - Narrative: No new complaints. COUNTS INCLUDE 234 BEDS AT THE [facility] - Medical History Medical History: Medical [...] mg PO DAILY 03/04/19 [History Confirmed 12/13/20] qbgqis-wzykptng-mgzlajg 24,000-76,000-120,000 unit capsule,delayed rel (Creon) 1cap PO TID 03/04/19 [History Confirmed 12/13/20] metoprolol succinate 25 mg capsule sprinkle, ext. release 24 hr 25 mg PO DAILY 03/04/19 [History Confirmed 12/13/20] empagliflozin 25 mg tablet (Jardiance) 25 mg PO DAILY 02/28/20 [History Confirmed 12/13/20] bflraw-elbvbyhl-ogjzzzj 24,000-76,000-120,000 unit capsule,delayed rel (Creon) 1cap PO [...] for coordination of care (as documented) and rqhf-fk-dbdq counseling of patient and/or family. Dictated By: Monico Reyez MD DD/ 1359 Signed By: <Electronically signed by MD Monico Reyez> 06/13/21 1401 [facility] Work Phone: 1(204) 156-533306-17-2021 Progress note Author Monico Reyez [facility] December 13, 2020 3:06pm Note Date/Time December 13, 2020 3:05 pm [facility] at [place] [id number] Hem/Onc Follow Up Note - OP Signed Patient: Rocio Jackson MR#: [id number] : 1955 Acct:[id number] Age/Sex: 65 / M Type: REG RCR [...] Vater having received adjuvant capecitabine and gemcitabine. COUNTS INCLUDE 234 BEDS AT THE [facility] - Medical History Medical History: Medical [...] for coordination of care (as documented) and oams-iy-ednp counseling of patient and/or family. Dictated By: Monico Reyez MD DD/ 1502 Signed By: <Electronically signed by MD Monico Reyez> 12/13/20 1506 [facility] Work Phone: 1(323) 787-384012-08-2020 Progress note Author Monico Reyez [facility] June 05, 2020 1:30pm Note Date/Time June 05, 2020 1 :18pm [facility] [place] [address] Hem/Onc Follow Up Note - OP Signed Patient: Rocio Jackson MR#: [id number] : 1955 Acct:[id number] Age/Sex: 64 / M Type: REG RCR [...] Vater having received adjuvant capecitabine and gemcitabine. COUNTS INCLUDE 234 BEDS AT THE [facility] - Medical History Medical History: Medical [...] % (Auto) 57.8, Lymph % (Auto) 30.5, Mcduffie % (Auto) 5.8, Eos % (Auto) 5.1, Baso % (Auto) 0.8, Neut # (Auto) 2.9, Lymph # (Auto) 1.5, Mcduffie # (Auto) 0.3, Eos # (Auto) 0.3, [...] for coordination of care (as documented) and kbto-ot-qrty counseling of patient and/or family. Dictated By: Monico Reyez MD DD/ 1312 Signed By: <Electronically signed by MD Monico Reyez> 06/05/20 1330 [facility] Work Phone: 1(209) 885-203109-08-2020 Progress note Author Monico Reyez [facility] March 06, 2020 1:51pm Note Date/Time March 06, 2020 1:50pm [facility] at [address] [address] Hem/Onc Follow Up Note - OP Signed Patient: Rocio Jackson MR#: [id number] : 1955 Acct:[id number] Age/Sex: 64 / M Type: REG RCR [...] that time. His latest CT scans at [facility] are negative. His biggestcomplaint today is weakness and fatigue. He does appear very pale overall we will check some basic blood work today and I will see him back in follow-up. COUNTS INCLUDE 234 BEDS AT THE [facility] - Medical History Medical History: Medical [...] for coordination of care (as documented) and tlst-im-zdta counseling of patient and/or family. Dictated By: Monico Reyez MD DD/ 1349 Signed By: <Electronically signed by MD Monico Reyez> 03/06/20 1357 [facility] Work Phone: 1(207) 653-407009-01-2020 Progress note Author Monico Reyez [facility] February 28, 2020 2:12pm Note Date/Time February 28, 2020 2:10pm [facility] [place] [address] Hem/Onc Follow Up Note - OP Signed Patient: Rocio Jackson MR#: [id number] : 1955 Acct:[id number] Age/Sex: 64 / M Type: REG RCR [...] that time. His latest CT scans at [facility] are negative. His biggestcomplaint today is weakness and fatigue. He does appear very pale overall we will check some basic blood work today and I will see him back in follow-up. COUNTS INCLUDE 234 BEDS AT THE [facility] - Medical History Medical History: Medical [...] % (Auto) 55.0, Lymph % (Auto) 32.7, Mcduffie % (Auto) 9.3, Eos % (Auto) 2.4, Baso % (Auto) 0.6, Neut # (Auto) 3.0, Lymph # (Auto) 1.8, Mcduffie # (Auto) 0.5, Eos # (Auto) 0.1, [...] for coordination of care (as documented) and nwjy-sr-uquy counseling of patient and/or family. 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 documented in this encounter [facility]* Diagnosis Iron deficiency anemia, unspecified iron deficiency anemia type- Primary 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 Macrocytosis Other specified diseases of blood and blood-forming organs documented in this encounter [facility]* Diagnosis Cancer of ampulla of Vater [...] B12 deficiency type documented in this encounter [facility]* Diagnosis Macrocytosis- Primary Other specified diseases of blood and blood-forming organs Abnormal weight loss Loss of weight Adenocarcinoma (HCC) Other malignant neoplasm without specification of site 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 Anemia due to vitamin B12 deficiency, unspecified B12 deficiency type [facility] Diagnosis 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 Anemia due to vitamin B12 deficiency, unspecified B12 deficiency type Anemia due to folic acid deficiency, unspecified deficiency type Macrocytosis Other specified diseases of blood and blood-forming organs [facility] Diagnosis Macrocytosis- Primary Other specified diseases of blood and blood-forming organs Anemia due to vitamin B12 deficiency, unspecified B12 deficiency type Anemia due to folic acid deficiency, unspecified deficiency type 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 [facility] noteNo [employer] Other Evaluation note* Diagnosis Macrocytosis- Primary Other specified diseases of blood and blood-forming organs Abnormal weight loss Loss of weight Adenocarcinoma (HCC) Other malignant neoplasm without specification of site 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 [facility] Diagnosis Macrocytosis- Primary Other specified diseases of blood and blood-forming organs Abnormal weight loss Loss of weight Adenocarcinoma (HCC) Other malignant neoplasm without specification of site 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 [facility] Diagnosis Anemia due to vitamin B12 deficiency, unspecified B12 deficiency type- Primary Iron deficiency anemia, unspecified iron deficiency anemia type 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 Duodenal obstruction Other obstruction of duodenum Severe protein-calorie malnutrition (HCC) Other severe protein-calorie malnutrition [facility] Work [facility]: Evaluation note* Diagnosis Anemia due [...] deficiency anemia type [facility] Diagnosis 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 [facility] Diagnosis 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 Anemia due to vitamin B12 deficiency, unspecified B12 deficiency type Iron deficiency anemia, unspecified iron deficiency anemia type [facility] Diagnosis Macrocytosis- Primary Other specified diseases of blood and blood-forming organs Abnormal weight loss Loss of weight Adenocarcinoma (HCC) Other malignant neoplasm without specification of site 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 [facility] Diagnosis 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 Anemia due to vitamin B12 deficiency, unspecified B12 deficiency type Severe protein-calorie malnutrition (HCC) Other severe protein-calorie malnutrition [facility] Macrocytosis- Primary Other specified diseases of blood and blood-forming organs Abnormal weight loss Loss of weight Adenocarcinoma (HCC) Other malignant neoplasm without specification of site 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 [facility] Diagnosis Iron deficiency anemia, unspecified iron deficiency anemia type- Primary History of gastric cancer Rectal bleeding Hemorrhage of rectum and anus [facility] Diagnosis Iron deficiency anemia, unspecified iron deficiency anemia type History of gastric cancer Rectal bleeding Hemorrhage of rectum and anus [facility]* Diagnosis Anemia, unspecified type- Primary [facility] Diagnosis Iron deficiency anemia, unspecified iron deficiency anemia type Duodenal obstruction Other obstruction of duodenum [facility] Diagnosis Macrocytosis- Primary Other specified diseases of blood and blood-forming organs Abnormal weight loss Loss of weight Adenocarcinoma (HCC) Other malignant neoplasm without specification of site 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 [facility] Diagnosis Iron deficiency anemia secondary to inadequate dietary iron intake- Primary 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 Adenocarcinoma (HCC) Other malignant neoplasm without specification of site Anemia due to vitamin B12 deficiency, unspecified B12 deficiency type Severe protein-calorie malnutrition (HCC) Other severe protein-calorie malnutrition [facility] Diagnosis Onset Date Resolution Status Anxiety acute Decreased appetite acute Pancreas cancer acute [facility] Work Phone: Evaluation note* Diagnosis Macrocytosis- Primary Other specified diseases of blood and blood-forming organs Abnormal weight loss Loss of weight Adenocarcinoma (HCC) Other malignant neoplasm without specification of site 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 [facility]* Diagnosis Arteriosclerosis of carotid artery, unspecified laterality History of PTCA Postsurgical percutaneous transluminal coronary angioplasty status Old inferior wall myocardial infarction PAF (paroxysmal atrial fibrillation) (Multi) Atrial fibrillation Other specified diabetes mellitus with other specified complication, without long-term current use of insulin (Multi) Essential hypertension Unspecified essential hypertension Mixed hyperlipidemia Former smoker Personal history of tobacco use, presenting hazards to health BMI 21.0-21.9, adult Frailty Senility without mention of psychosis documented in this encounter 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) Other malignant neoplasm without specification of site Abnormal weight loss Loss of weight Macrocytosis Other specified diseases of blood and blood-forming organs [facility] Diagnosis Onset Date Resolution Status Bilateral impacted cerumen a cute Dyspnea on exertion acute Pancreas cancer acute Seborrhea of face acute Weakness generalized acute Bilateral cervical radiculopathy acute Type II diabetes mellitus ac [place] [facility] Work Phone: Evaluation note* 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) Other malignant neoplasm without specification of site Abnormal weight loss Loss of weight Macrocytosis Other specified diseases of blood and blood-forming organs [facility] Diagnosis Iron deficiency anemia secondary to inadequate dietary iron intake- Primary Adenocarcinoma (HCC) Other malignant neoplasm without specification of site 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 Anemia due to vitamin B12 deficiency, unspecified B12 deficiency type [facility] Diagnosis Onset Date Resolution Status Bilateral cervical radiculopathy acute Pancreas cancer acute Type II diabetes mellitus ac [place] Weakness generalized acute Decreased appetite acute Restless leg syndrome acute [facility] Work Phone: Evaluation note* 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) Other malignant neoplasm without specification of site Abnormal weight loss Loss of weight Macrocytosis Other specified diseases of blood and blood-forming organs [facility] 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) Other malignant neoplasm without specification of site Abnormal weight loss Loss of weight Macrocytosis Other specified diseases of blood and blood-forming organs [facility] Diagnosis Iron deficiency anemia secondary to inadequate dietary iron intake 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 Anemia due to vitamin B12 deficiency, unspecified B12 deficiency type [facility] 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 Anemia due to vitamin B12 deficiency, unspecified B12 deficiency type Severe protein-calorie malnutrition (HCC) Other severe protein-calorie malnutrition Iron deficiency anemia, unspecified iron deficiency anemia type [facility] 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 Iron deficiency anemia secondary to inadequate dietary iron intake Anemia due to vitamin B12 deficiency, unspecified B12 deficiency type [facility] Diagnosis 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 documented in this encounter [facility] note* Diagnosis Interstitial pulmonary disease (HCC) 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 Anemia due to vitamin B12 deficiency, unspecified B12 deficiency type [facility] Diagnosis Iron deficiency anemia, unspecified iron deficiency anemia type 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 Adenocarcinoma (HCC) Other malignant neoplasm without specification of site Malignant neoplasm of body of pancreas (HCC) Malignant neoplasm of body of pancreas [facility] 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) Other malignant neoplasm without specification of site Abnormal weight loss Loss of weight Macrocytosis Other specified diseases of blood and blood-forming organs documented in this encounter [facility] note* 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) Other malignant neoplasm without specification of site Abnormal weight loss Loss of weight Macrocytosis Other specified diseases of blood and blood-forming organs documented in this encounter [facility] general Narrative - Reported* Type Description Date Surgical History heart stent Surgical History stomach ulcer 2017 Surgical History gallbladder 2018 Surgical History whipple 2018 [employer] Other History general Narrative - Reported* Type Description Date Medical History BMI 20.0-20.9, adult Medical History Paroxysmal atrial fibrillation Medical History Lumbar pain Medical History Essential hypertension Medical History Tachypnea on examination Medical History Dyspnea on exertion Medical History Anxiety, generalized Medical History Anemia, macrocytic Medical History Elevated LFTs Medical History Fatigue Medical History CAD in [place] artery Medical History Malignant neoplasm of duodenum Surgical History heart stent 2010 Surgical History stomach ulcer 2017 Surgical History gallbladder 2018 Surgical History whipple 2018 Surgical History colonoscopy 2019 Hospitalization History SEE SURGICAL HX [employer] Other InstructionsNot on filedocumented in this encounter [facility]Not on filedocumented in this encounter [facility] SystemInstructionsNot on filedocumented in this encounter [facility] SystemReason for referral (narrative)* Diagnostic Procedure Only (Routine) - Authorized Specialty Diagnoses / Procedures Referred By Contac t Referred To Contact MOLECULAR & FUNCTIONAL IMAGING Diagnoses Cancer of ampulla of Vater (HCC) Procedures NM PET/CT SKULL-THIGH INITIAL PET IMAGING CT ATTENUATION SKULL BASE MID-THIGH Zahra May MD [address] [place] [address] [place] [address] Molecular & Functional Imaging [address] [place] [address] Referral ID Status Reason Start Date Expiration Date Visits Requested Visits Authorized [id number] Authorized Auto-Generat ed Referral 03/05/2023 03/20/2024 1 1 [facility] for referral (narrative)* Consultation (Routine) - Pending Review Specialty Diagnoses / Procedures Referred By Contac t Referred To Contact Hematology Diagnoses Anemia, unspecified type Rick Zapata DO [address] [place] [address] Gonzales Barnett MD [address] [place] [address] Referral ID Status Reason Start Date Expiration Date Visits Requested Visits Authorized [id number] Pending Review Specialty Services Required 08/10/2023 08/09/2024 1 1 [facility] for referral (narrative)* Consultation (Routine) - Authorized Specialty Diagnoses / Procedures Referred By Contac t Referred To Contact Cardiology Diagnoses Arteriosclerosis of carotid artery, unspecified laterality Procedures Follow Up In Cardiology Irving Abreu DO [address] [facility] 2, [address] [address] Referral ID Status Reason Start Date Expiration Date V isits Requested Visits Authorized [id number] Authorized 10/29/2023 10/28/2024 [address] [facility] Work Phone: Reason for referral (narrative)* Diagnostic Procedure Only (Routine) - Closed Specialty Diagnoses / Procedures Referred By Contac t Referred To Contact MOLECULAR & FUNCTIONAL IMAGING Diagnoses Cancer of ampulla of Vater (HCC) Procedures NM PET/CT SKULL-THIGH INITIAL PET IMAGING CT ATTENUATION SKULL BASE MID-THIGH Zahra May MD [address] [place] [address] [place] [address] Molecular & Functional Imaging [address] [place] [address] Referral ID Status Reason Start Date Expiration Date V isits Requested Visits Authorized [id number] Closed Auto-Generate d Referral 03/05/2023 03/20/2024 1 1 [facility] Summary Purpose Family History Unknown Family [...] Diabetes mellitus Unknown sister Malignant neoplasm Unknown father Unknown family member Unknown Not Specified Unknown Relationship Condition Age at Onset Recorded Date/T kimberley mother Heart problem Unknown Hypertension Unknown Diabetes mellitus Unknown father Diabetes mellitus Unknown sister Diabetes mellitus Unknown sister Malignant neoplasm Unknown father Unknown family member Unknown mother Unknown Advance Directives Advance Directive Response Recorded Date/ Time Advance Directives No August 07, 2017 10:26am Directive Description Status Resuscitation FULL CODE Verified By [facility] Record Only Advance Directive Response Recorded Date/ Time Advance Directives No February 14, 2023 8:12am Advance Directive Response Recorded Date/ Time Advance Directives No February 14, 2023 7:12am Reason for Referral Specialty Diagnoses / Procedures [facility] Ref[facility] To Contact CT IMAGING Diagnoses Iron deficiency anemia, unspecified iron deficiency anemia type 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) Procedures CT CHEST W IVCON DIAGNOSTIC COMPUTED TOMOGRAPHY THORAX W/CONTRAST Zahra May MD [address] [place] [address] [place] [address] Ct Imaging Referral ID Status Reason Start Date Expiration Date Visits Requested Visits Authorized [id number] Authorized Auto-Generat ed Referral 02/04/2022 01/04/2023 1 1 Specialty Diagnoses / Procedures [facility] Ref[facility] To Contact CT IMAGING Diagnoses Iron deficiency anemia, unspecified iron deficiency anemia type 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) Procedures CT ABD/PEL W IVCON CT ABD & PELVIS W/CONTRAST Zahra May MD [address] [place] [address] [place] [address] Ct Imaging Referral ID Status Reason Start Date Expiration Date Visits Requested Visits Authorized [id number] Authorized Auto-Generat ed Referral 02/04/2022 01/04/2023 1 1 Specialty Diagnoses / Procedures [facility] Ref[facility] To Contact CT IMAGING Diagnoses Interstitial pulmonary disease (HCC) Cancer of ampulla of Vater (HCC) Anemia due to vitamin B12 deficiency, unspecified B12 deficiency type Procedures CT CHEST W IVCON DIAGNOSTIC COMPUTED TOMOGRAPHY THORAX W/CONTRAST Zahra May MD [address] [place] [address] [place] [address] Ct Imaging Referral ID Status Reason Start Date Expiration Date Visits Requested Visits Authorized [id number] Authorized Auto-Generat ed Referral 07/04/2022 07/06/2023 1 1 Specialty Diagnoses / Procedures Referred By Contac t Referred To Contact CT IMAGING Diagnoses Interstitial pulmonary disease (HCC) Cancer of ampulla of Vater (HCC) Anemia due to vitamin B12 deficiency, unspecified B12 deficiency type Procedures CT ABD/PEL W IVCON CT ABD & PELVIS W/CONTRAST Zahra May MD [address] [place] [address] [place] [address] Ct Imaging Referral ID Status Reason Start Date Expiration Date Visits Requested Visits Authorized [id number] Authorized Auto-Generat ed Referral 07/04/2022 07/06/2023 1 1 Reason *FU 12/08 Last 2 O V and xray results - thank you Diagnosis 1 Lumbar pain (M54.50) Referral Organization [facility] marly Referring Provider First Name David Referring Provider Last Name Harshal Referring Provider Specialty Family [facility] Referred Organization [facility] Referred Provider Gladis Lopez Referred Address [address] [place], [place],[address] Referred Provider Specialty Pain Medicin e Referral Priority Routine General Notes Dorene Gunter 02:06:36 PM >received today, attachments made, notes locked, referral faxed Clinical Notes F: [id number] Specialty Diagnoses / Procedures Referred By Contac t Referred To Contact CT IMAGING Diagnoses Cancer of ampulla of Vater (HCC) Anemia due to vitamin B12 deficiency, unspecified B12 deficiency type Severe protein-calorie malnutrition (HCC) Procedures CT CHEST W IVCON DIAGNOSTIC COMPUTED TOMOGRAPHY THORAX W/CONTRAST Zahra May MD [address] [place] [address] [place] [address] [place] [address] Referral ID Status Reason Start Date Expiration Date Visits Requested Visits Authorized [id number] Authorized Auto-Generat ed Referral 06/29/2023 04/14/2024 1 1 Specialty Diagnoses / Procedures Referred By Contac t Referred To Contact CT IMAGING Diagnoses Cancer of ampulla of Vater (HCC) Anemia due to vitamin B12 deficiency, unspecified B12 deficiency type Severe protein-calorie malnutrition (HCC) Procedures CT ABD/PEL W IVCON CT ABD & PELVIS W/CONTRAST Zahra May MD [address] [place] [address] [place] [address] [place] [address] Referral ID Status Reason Start Date Expiration Date Visits Requested Visits Authorized [id number] Authorized Auto-Generat ed Referral 06/29/2023 04/14/2024 1 1 Specialty Diagnoses / Procedures Referred By Contac t Referred To Contact Diagnoses Iron deficiency anemia, unspecified iron deficiency anemia type History of gastric cancer Rectal bleeding Procedures EGD / Colonoscopy Rick Zapata, [address] [place] [address] Referral ID Status Reason Start Date Expiration Date V isits Requested Visits Authorized [id number] Pending Review 07/17/2023 07/16/2024 1 1 Specialty Diagnoses / Procedures Referred By Contac t Referred To Contact CT IMAGING Diagnoses Iron deficiency anemia secondary to inadequate dietary iron intake Cancer of ampulla of Vater (HCC) Anemia due to vitamin B12 deficiency, unspecified B12 deficiency type Procedures CT CHEST W IVCON DIAGNOSTIC COMPUTED TOMOGRAPHY THORAX W/CONTRAST Zahra May MD [address] [place] [address] [place] [address] [place] [address] Referral ID Status Reason Start Date Expiration Date Visits Requested Visits Authorized [id number] Authorized Auto-Generat ed Referral 03/04/2024 01/01/2025 1 1 Specialty Diagnoses / Procedures Referred By Contac t Referred To Contact CT IMAGING Diagnoses Iron deficiency anemia secondary to inadequate dietary iron intake Cancer of ampulla of Vater (HCC) Anemia due to vitamin B12 deficiency, unspecified B12 deficiency type Procedures CT ABD/PEL W IVCON CT ABD & PELVIS W/CONTRAST Zahra May MD [address] [place] [address] [place] [address] [place] [address] Referral ID Status Reason Start Date Expiration Date Visits Requested Visits Authorized [id number] Authorized Auto-Generat ed Referral 03/04/2024 01/01/2025 1 1 Referral ID Status Reason Start Date Expiration Date V isits Requested Visits Authorized [id number] Closed Auto-Generate d Referral 03/04/2024 01/01/2025 1 1 Referral ID Status Reason Start Date Expiration Date V isits Requested Visits Authorized [id number] Closed Auto-Generate d Referral 03/04/2024 01/01/2025 1 1 Referral ID Status Reason Start Date Expiration Date V isits Requested Visits Authorized [id number] Closed Auto-Generate d Referral 06/29/2023 04/14/2024 1 1 Referral ID Status Reason Start Date Expiration Date V isits Requested Visits Authorized [id number] Closed Auto-Generate d Referral 06/29/2023 04/14/2024 1 1 Specialty Diagnoses / Procedures Referred By Contac t Referred To Contact CT IMAGING Diagnoses Cancer of ampulla of Vater (HCC) Iron deficiency anemia secondary to inadequate dietary iron intake Anemia due to vitamin B12 deficiency, unspecified B12 deficiency type Procedures CT CHEST W IVCON DIAGNOSTIC COMPUTED TOMOGRAPHY THORAX W/CONTRAST Zahra May MD [address] [place] [address] [place] [address] [place] [address] Referral ID Status Reason Start Date Expiration Date Visits Requested Visits Authorized [id number] New Request Auto-Generat ed Referral 04/09/2025 1 1 Specialty Diagnoses / Procedures Referred By Contac t Referred To Contact CT IMAGING Diagnoses Cancer of ampulla of Vater (HCC) Iron deficiency anemia secondary to inadequate dietary iron intake Anemia due to vitamin B12 deficiency, unspecified B12 deficiency type Procedures CT ABD/PEL W IVCON CT ABD & PELVIS W/CONTRAST Zahra May MD [address] [place] [address] [place] [address] [place] [address] Referral ID Status Reason Start Date Expiration Date Visits Requested Visits Authorized [id number] New Request Auto-Generat ed Referral 04/09/2025 1 1 Specialty Diagnoses / Procedures Referred By Contac t Referred To Contact CT IMAGING Diagnoses Interstitial pulmonary disease (HCC) Cancer of ampulla of Vater (HCC) Anemia due to vitamin B12 deficiency, unspecified B12 deficiency type Procedures CT CHEST W IVCON DIAGNOSTIC COMPUTED TOMOGRAPHY THORAX W/CONTRAST Zahra May MD [address] [place] [address] [place] [address] [place] [address] Referral ID Status Reason Start Date Expiration Date V isits Requested Visits Authorized [id number] Closed Auto-Generate d Referral 07/04/2022 07/06/2023 1 1 Specialty Diagnoses / Procedures Referred By Contac t Referred To Contact CT IMAGING Diagnoses Interstitial pulmonary disease (HCC) Cancer of ampulla of Vater (HCC) Anemia due to vitamin B12 deficiency, unspecified B12 deficiency type Procedures CT ABD/PEL W IVCON CT ABD & PELVIS W/CONTRAST Zahra May MD [address] [place] [address] [place] [address] [place] [address] Referral ID Status Reason Start Date Expiration Date V isits Requested Visits Authorized [id number] Closed Auto-Generate d Referral 07/04/2022 07/06/2023 1 1 Specialty Diagnoses / Procedures Referred By Contac t Referred To Contact CT IMAGING Diagnoses Iron deficiency anemia, unspecified iron deficiency anemia type 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) Procedures CT CHEST W IVCON DIAGNOSTIC COMPUTED TOMOGRAPHY THORAX W/CONTRAST Zahra May MD [address] [place] [address] [place] [address] [place] [address] Referral ID Status Reason Start Date Expiration Date V isits Requested Visits Authorized [id number] Closed Auto-Generate d Referral 02/04/2022 01/04/2023 1 1 Specialty Diagnoses / Procedures Referred By Contac t Referred To Contact CT IMAGING Diagnoses Iron deficiency anemia, unspecified iron deficiency anemia type 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 EXP 7 03/13/22 EXP: (8 HR) New Bag/Syringe/Seun le 03/13/2022 2:15 PM EDT 1,000 mg Inactive Administered Medications - up to 3 most recent administrations Medication Order MAR Action Action Dose Rate Site cyanocobalamin 1,000 mcg injection 1,000 mcg, INTRAMUSCULAR, ONCE, 1 dose, On Thu04/10/22 at 1400 Given 04/10/2022 2:10 PM EDT [...] 3 most recent administrations Medication Order MAR Dose Rate Site cyanocobalamin 1,000 mcg injection 1,000 mcg, INTRAMUSCULAR, ONCE, 1 dose, On Thu05/08/22 at 1430 Given 05/08/2022 2:10 PM EST 1,000 mcg Deltoid, Right Inactive Administered Medications - up to 3 most recent administrations Medication Order MAR Dose Rate Site cyanocobalamin 1,000 mcg injection 1,000 mcg, INTRAMUSCULAR, ONCE, 1 dose, On Thu06/06/22 at 1430 Given 06/06/2022 2:34 PM EST 1,000 mcg Deltoid, Right Inactive Administered Medications - up to 3 most recent administrations Medication Order MAR Dose Rate Site cyanocobalamin 1,000 mcg injection 1,000 mcg, INTRAMUSCULAR, ONCE, 1 dose, On Thu07/03/22 at 1430 Given 07/03/2022 2:30 PM EST 1,000 mcg Deltoid, Right Inactive Administered Medications - up to 3 most recent administrations Medication Order MAR Action Action Dose Rate Site cyanocobalamin 1,000 mcg injection [...] 1,000 mcg, INTRAMUSCULAR, ONCE, 1 dose, On Thu04/09/23 at 1500 Given 04/09/2023 3:03 PM EDT 1,000 mcg Deltoid, Right Chief Complaint and Reason for Visit Chief Complaint D64.9 I48.0 E11.9 K9 0.81 E11.9 I10 E46 D64.9 Chief Complaint 3 Month Follow Up Unknown Chief Complaint Unknown d/c from [facility] Amb Documentation Ear Cleaning Reason for Visit Anxiety Decreased appetite Pancreas cancer Chief Complaint Amb Documentation Ear Cleaning Amb Documentation follow up Reason for Visit Bilateral impacted c erumen Dyspnea on exertion Pancreas cancer Seborrhea of face Weakness generalized Bilateral cervical radiculopathy Type II diabetes mellitus Chief Complaint Amb Documentation follow up leg pain Reason for Visit Bilateral cervical r adiculopathy Pancreas cancer Type II diabetes mellitus Weakness generalized Decreased appetite Restless leg syndrome Chief Complaint Admit Date CC Adult Risk Stratification April 2:19pm Med f/u May 06, 2024 1 :48pm Additional Source Comments (unrecognized sect ion and content) No Status Records FoundNo Status Records FoundNo Status Records FoundNo Status Records FoundNo Status Records FoundNo Status Records FoundNo Status Records FoundNo Status Records Found INFORMATION SOURCE (unrecogn ized section and content) DATE CREATED AUTHOR 12/17/2017 [facility] DATE CREATED AUTHOR AUTHOR'S ORGANIZ ATION 12/31/2017 [facility] DATE CREATED AUTHOR AUTHOR'S ORGANIZ ATION 07/22/2022 [facility] DATE CREATED AUTHOR AUTHOR'S ORGANIZ ATION 09/17/2022 [facility] DATE CREATED AUTHOR AUTHOR'S ORGANIZ ATION 10/03/2022 [facility] DATE CREATED AUTHOR AUTHOR'S ORGANIZ ATION 08/09/2023 [facility] DATE CREATED AUTHOR AUTHOR'S ORGANIZ ATION 10/31/2023 [facility] DATE CREATED AUTHOR AUTHOR'S ORGANIZ ATION 04/30/2024 [facility] Source Comments (unrecognize d section and content) In the event this informatio n is protected by the Federal Confidentiality of Alcohol and Drug Abuse Patient Records regulations: The Federal rules restrict any use of the information to criminally investigate or prosecute any alcohol or drug abuse patient.[facility] the event this information is protected by the Federal Confidentiality of Alcohol and Drug Abuse Patient Records regulations: The Federal rules restrict any use of the information to criminally investigate or prosecute any alcohol or drug abuse patient.[facility] HospitalIn the event this information is protected by the Federal Confidentiality of Alcohol and Drug Abuse Patient Records regulations: The Federal rules restrict any use of the information to criminally investigate or prosecute any alcohol or drug abuse patient.[facility] HospitalIn the event this information is protected by the Federal Confidentiality of Alcohol and Drug Abuse Patient Records regulations: The Federal rules restrict any use of the information to criminally investigate or prosecute any alcohol or drug abuse patient.[facility] HospitalIn the event this information is protected by the Federal Confidentiality of Alcohol and Drug Abuse Patient Records regulations: The Federal rules restrict any use of the information to criminally investigate or prosecute any alcohol or drug abuse patient.[facility] HospitalIn the event this information is protected by the Federal Confidentiality of Alcohol and Drug Abuse Patient Records regulations: The Federal rules restrict any use of the information to criminally investigate or prosecute any alcohol or drug abuse patient.[facility] HospitalIn the event this information is protected by the Federal Confidentiality of Alcohol and Drug Abuse Patient Records regulations: The Federal rules restrict any use of the information to criminally investigate or prosecute any alcohol or drug abuse patient.[facility] HospitalIn the event this information is protected by the Federal Confidentiality of Alcohol and Drug Abuse Patient Records regulations: The Federal rules restrict any use of the information to criminally investigate or prosecute any alcohol or drug abuse patient.[facility] HospitalIn the event this information is protected by the Federal Confidentiality of Alcohol and Drug Abuse Patient Records regulations: The Federal rules restrict any use of the information to criminally investigate or prosecute any alcohol or drug abuse patient.[facility] HospitalIn the event this information is protected by the Federal Confidentiality of Alcohol and Drug Abuse Patient Records regulations: The Federal rules restrict any use of the information to criminally investigate or prosecute any alcohol or drug abuse patient.[facility] HospitalIn the event this information is protected by the Federal Confidentiality of Alcohol and Drug Abuse Patient Records regulations: The Federal rules restrict any use of the information to criminally investigate or prosecute any alcohol or drug abuse patient.[facility] HospitalIn the event this information is protected by the Federal Confidentiality of Alcohol and Drug Abuse Patient Records regulations: The Federal rules restrict any use of the information to criminally investigate or prosecute any alcohol or drug abuse patient.[facility] HospitalIn the event this information is protected by the Federal Confidentiality of Alcohol and Drug Abuse Patient Records regulations: The Federal rules restrict any use of the information to criminally investigate or prosecute any alcohol or drug abuse patient.[facility] HospitalIn the event this information is protected by the Federal Confidentiality of Alcohol and Drug Abuse Patient Records regulations: The Federal rules restrict any use of the information to criminally investigate or prosecute any alcohol or drug abuse patient.[facility] HospitalIn the event this information is protected by the Federal Confidentiality of Alcohol and Drug Abuse Patient Records regulations: The Federal rules restrict any use of the information to criminally investigate or prosecute any alcohol or drug abuse patient.[facility] HospitalIn the event this information is protected by the Federal Confidentiality of Alcohol and Drug Abuse Patient Records regulations: The Federal rules restrict any use of the information to criminally investigate or prosecute any alcohol or drug abuse patient.[facility] HospitalIn the event this information is protected by the Federal Confidentiality of Alcohol and Drug Abuse Patient Records regulations: The Federal rules restrict any use of the information to criminally investigate or prosecute any alcohol or drug abuse patient.[facility] HospitalIn the event this information is protected by the Federal Confidentiality of Alcohol and Drug Abuse Patient Records regulations: The Federal rules restrict any use of the information to criminally investigate or prosecute any alcohol or drug abuse patient.[facility] HospitalIn the event this information is protected by the Federal Confidentiality of Alcohol and Drug Abuse Patient Records regulations: The Federal rules restrict any use of the information to criminally investigate or prosecute any alcohol or drug abuse patient.[facility] HospitalIn the event this information is protected by the Federal Confidentiality of Alcohol and Drug Abuse Patient Records regulations: The Federal rules restrict any use of the information to criminally investigate or prosecute any alcohol or drug abuse patient.[facility] HospitalIn the event this information is protected by the Federal Confidentiality of Alcohol and Drug Abuse Patient Records regulations: The Federal rules restrict any use of the information to criminally investigate or prosecute any alcohol or drug abuse patient.[facility] HospitalIn the event this information is protected by the Federal Confidentiality of Alcohol and Drug Abuse Patient Records regulations: The Federal rules restrict any use of the information to criminally investigate or prosecute any alcohol or drug abuse patient.[facility] HospitalIn the event this information is protected by the Federal Confidentiality of Alcohol and Drug Abuse Patient Records regulations: The Federal rules restrict any use of the information to criminally investigate or prosecute any alcohol or drug abuse patient.[facility] HospitalIn the event this information is protected by the Federal Confidentiality of Alcohol and Drug Abuse Patient Records regulations: The Federal rules restrict any use of the information to criminally investigate or prosecute any alcohol or drug abuse patient.[facility] HospitalIn the event this information is protected by the Federal Confidentiality of Alcohol and Drug Abuse Patient Records regulations: The Federal rules restrict any use of the information to criminally investigate or prosecute any alcohol or drug abuse patient.[facility] HospitalIn the event this information is protected by the Federal Confidentiality of Alcohol and Drug Abuse Patient Records regulations: The Federal rules restrict any use of the information to criminally investigate or prosecute any alcohol or drug abuse patient.[facility] HospitalIn the event this information is protected by the Federal Confidentiality of Alcohol and Drug Abuse Patient Records regulations: The Federal rules restrict any use of the information to criminally investigate or prosecute any alcohol or drug abuse patient.[facility] HospitalIn the event this information is protected by the Federal Confidentiality of Alcohol and Drug Abuse Patient Records regulations: The Federal rules restrict any use of the information to criminally investigate or prosecute any alcohol or drug abuse patient.[facility] HospitalIn the event this information is protected by the Federal Confidentiality of Alcohol and Drug Abuse Patient Records regulations: The Federal rules restrict any use of the information to criminally investigate or prosecute any alcohol or drug abuse patient.[facility] HospitalIn the event this information is protected by the Federal Confidentiality of Alcohol and Drug Abuse Patient Records regulations: The Federal rules restrict any use of the information to criminally investigate or prosecute any alcohol or drug abuse patient.[facility] HospitalIn the event this information is protected by the Federal Confidentiality of Alcohol and Drug Abuse Patient Records regulations: The Federal rules restrict any use of the information to criminally investigate or prosecute any alcohol or drug abuse patient.[facility] HospitalIn the event this information is protected by the Federal Confidentiality of Alcohol and Drug Abuse Patient Records regulations: The Federal rules restrict any use of the information to criminally investigate or prosecute any alcohol or drug abuse patient.[facility] HospitalIn the event this information is protected by the Federal Confidentiality of Alcohol and Drug Abuse Patient Records regulations: The Federal rules restrict any use of the information to criminally investigate or prosecute any alcohol or drug abuse patient.[facility] HospitalIn the event this information is protected by the Federal Confidentiality of Alcohol and Drug Abuse Patient Records regulations: The Federal rules restrict any use of the information to criminally investigate or prosecute any alcohol or drug abuse patient.[facility] HospitalIn the event this information is protected by the Federal Confidentiality of Alcohol and Drug Abuse Patient Records regulations: The Federal rules restrict any use of the information to criminally investigate or prosecute any alcohol or drug abuse patient.[facility] HospitalIn the event this information is protected by the Federal Confidentiality of Alcohol and Drug Abuse Patient Records regulations: The Federal rules restrict any use of the information to criminally investigate or prosecute any alcohol or drug abuse patient.[facility] HospitalIn the event this information is protected by the Federal Confidentiality of Alcohol and Drug Abuse Patient Records regulations: The Federal rules restrict any use of the information to criminally investigate or prosecute any alcohol or drug abuse patient.[facility] HospitalIn the event this information is protected by the Federal Confidentiality of Alcohol and Drug Abuse Patient Records regulations: The Federal rules restrict any use of the information to criminally investigate or prosecute any alcohol or drug abuse patient.[facility] HospitalIn the event this information is protected by the Federal Confidentiality of Alcohol and Drug Abuse Patient Records regulations: The Federal rules restrict any use of the information to criminally investigate or prosecute any alcohol or drug abuse patient.[facility] HospitalIn the event this information is protected by the Federal Confidentiality of Alcohol and Drug Abuse Patient Records regulations: The Federal rules restrict any use of the information to criminally investigate or prosecute any alcohol or drug abuse patient.[facility] HospitalIn the event this information is protected by the Federal Confidentiality of Alcohol and Drug Abuse Patient Records regulations: The Federal rules restrict any use of the information to criminally investigate or prosecute any alcohol or drug abuse patient.[facility] HospitalIn the event this information is protected by the Federal Confidentiality of Alcohol and Drug Abuse Patient Records regulations: The Federal rules restrict any use of the information to criminally investigate or prosecute any alcohol or drug abuse patient.[facility] HospitalIn the event this information is protected by the Federal Confidentiality of Alcohol and Drug Abuse Patient Records regulations: The Federal rules restrict any use of the information to criminally investigate or prosecute any alcohol or drug abuse patient.[facility] HospitalIn the event this information is protected by the Federal Confidentiality of Alcohol and Drug Abuse Patient Records regulations: The Federal rules restrict any use of the information to criminally investigate or prosecute any alcohol or drug abuse patient.[facility] HospitalIn the event this information is protected by the Federal Confidentiality of Alcohol and Drug Abuse Patient Records regulations: The Federal rules restrict any use of the information to criminally investigate or prosecute any alcohol or drug abuse patient.[facility] HospitalIn the event this information is protected by the Federal Confidentiality of Alcohol and Drug Abuse Patient Records regulations: The Federal rules restrict any use of the information to criminally investigate or prosecute any alcohol or drug abuse patient.[facility] HospitalIn the event this information is protected by the Federal Confidentiality of Alcohol and Drug Abuse Patient Records regulations: The Federal rules restrict any use of the information to criminally investigate or prosecute any alcohol or drug abuse patient.[facility] HospitalIn the event this information is protected by the Federal Confidentiality of Alcohol and Drug Abuse Patient Records regulations: The Federal rules restrict any use of the information to criminally investigate or prosecute any alcohol or drug abuse patient.[facility] HospitalIn the event this information is protected by the Federal Confidentiality of Alcohol and Drug Abuse Patient Records regulations: The Federal rules restrict any use of the information to criminally investigate or prosecute any alcohol or drug abuse patient.[facility] HospitalIn the event this information is protected by the Federal Confidentiality of Alcohol and Drug Abuse Patient Records regulations: The Federal rules restrict any use of the information to criminally investigate or prosecute any alcohol or drug abuse patient.[facility] HospitalIn the event this information is protected by the Federal Confidentiality of Alcohol and Drug Abuse Patient Records regulations: The Federal rules restrict any use of the information to criminally investigate or prosecute any alcohol or drug abuse patient.[facility] HospitalIn the event this information is protected by the Federal Confidentiality of Alcohol and Drug Abuse Patient Records regulations: The Federal rules restrict any use of the information to criminally investigate or prosecute any alcohol or drug abuse patient.[facility] HospitalIn the event this information is protected by the Federal Confidentiality of Alcohol and Drug Abuse Patient Records regulations: The Federal rules restrict any use of the information to criminally investigate or prosecute any alcohol or drug abuse patient.[facility] HospitalIn the event this information is protected by the Federal Confidentiality of Alcohol and Drug Abuse Patient Records regulations: The Federal rules restrict any use of the information to criminally investigate or prosecute any alcohol or drug abuse patient.[facility] HospitalIn the event this information is protected by the Federal Confidentiality of Alcohol and Drug Abuse Patient Records regulations: The Federal rules restrict any use of the information to criminally investigate or prosecute any alcohol or drug abuse patient.[facility] HospitalIn the event this information is protected by the Federal Confidentiality of Alcohol and Drug Abuse Patient Records regulations: The Federal rules restrict any use of the information to criminally investigate or prosecute any alcohol or drug abuse patient.[facility] HospitalIn the event this information is protected by the Federal Confidentiality of Alcohol and Drug Abuse Patient Records regulations: The Federal rules restrict any use of the information to criminally investigate or prosecute any alcohol or drug abuse patient.[facility] HospitalIn the event this information is protected by the Federal Confidentiality of Alcohol and Drug Abuse Patient Records regulations: The Federal rules restrict any use of the information to criminally investigate or prosecute any alcohol or drug abuse patient.[facility] HospitalIn the event this information is protected by the Federal Confidentiality of Alcohol and Drug Abuse Patient Records regulations: The Federal rules restrict any use of the information to criminally investigate or prosecute any alcohol or drug abuse patient.[facility] HospitalIn the event this information is protected by the Federal Confidentiality of Alcohol and Drug Abuse Patient Records regulations: The Federal rules restrict any use of the information to criminally investigate or prosecute any alcohol or drug abuse patient.[facility] HospitalIn the event this information is protected by the Federal Confidentiality of Alcohol and Drug Abuse Patient Records regulations: The Federal rules restrict any use of the information to criminally investigate or prosecute any alcohol or drug abuse patient.[facility] HospitalIn the event this information is protected by the Federal Confidentiality of Alcohol and Drug Abuse Patient Records regulations: The Federal rules restrict any use of the information to criminally investigate or prosecute any alcohol or drug abuse patient.[facility] HospitalIn the event this information is protected by the Federal Confidentiality of Alcohol and Drug Abuse Patient Records regulations: The Federal rules restrict any use of the information to criminally investigate or prosecute any alcohol or drug abuse patient.[facility] HospitalIn the event this information is protected by the Federal Confidentiality of Alcohol and Drug Abuse Patient Records regulations: The Federal rules restrict any use of the information to criminally investigate or prosecute any alcohol or drug abuse patient.[facility] HospitalIn the event this information is protected by the Federal Confidentiality of Alcohol and Drug Abuse Patient Records regulations: The Federal rules restrict any use of the information to criminally investigate or prosecute any alcohol or drug abuse patient.[facility] HospitalIn the event this information is protected by the Federal Confidentiality of Alcohol and Drug Abuse Patient Records regulations: The Federal rules restrict any use of the information to criminally investigate or prosecute any alcohol or drug abuse patient.[facility] HospitalIn the event this information is protected by the Federal Confidentiality of Alcohol and Drug Abuse Patient Records regulations: The Federal rules restrict any use of the information to criminally investigate or prosecute any alcohol or drug abuse patient.[facility] HospitalIn the event this information is protected by the Federal Confidentiality of Alcohol and Drug Abuse Patient Records regulations: The Federal rules restrict any use of the information to criminally investigate or prosecute any alcohol or drug abuse patient.[facility] HospitalIn the event this information is protected by the Federal Confidentiality of Alcohol and Drug Abuse Patient Records regulations: The Federal rules restrict any use of the information to criminally investigate or prosecute any alcohol or drug abuse patient.[facility] HospitalIn the event this information is protected by the Federal Confidentiality of Alcohol and Drug Abuse Patient Records regulations: The Federal rules restrict any use of the information to criminally investigate or prosecute any alcohol or drug abuse patient.[facility] HospitalIn the event this information is protected by the Federal Confidentiality of Alcohol and Drug Abuse Patient Records regulations: The Federal rules restrict any use of the information to criminally investigate or prosecute any alcohol or drug abuse patient.[facility] HospitalIn the event this information is protected by the Federal Confidentiality of Alcohol and Drug Abuse Patient Records regulations: The Federal rules restrict any use of the information to criminally investigate or prosecute any alcohol or drug abuse patient.[facility] HospitalIn the event this information is protected by the Federal Confidentiality of Alcohol and Drug Abuse Patient Records regulations: The Federal rules restrict any use of the information to criminally investigate or prosecute any alcohol or drug abuse patient.[facility] HospitalIn the event this information is protected by the Federal Confidentiality of Alcohol and Drug Abuse Patient Records regulations: The Federal rules restrict any use of the information to criminally investigate or prosecute any alcohol or drug abuse patient.[facility] Care Teams (unrecognized sec tion and content) Team Status: Active Member Role Status Dates David Caputo MD Primary Care Provider Active Team Status: Active Member Role Status Dates David Caputo MD Primary Care Provider Active Start: August 31, 2023 Nelia Jaramillo LPN Attending Provider Active S tart: August 31, 2023 Team Status: Active Member Role Status Dates David Caputo MD Primary Care Provide r, Attending Provider Active Start: September 03, 2023 Team Status: Inactive Member Role Status Dates David Caputo MD Primary Care Provide r, Attending Provider Active Start: September 11, 2023 End: September 11, 2023 Team Status: Active Member Role Status Dates David Caputo MD Primary Care Provider Active Start: October 06, 2023 ANKIT Magallanes Attending Provider Active Start : October 06, 2023 Team Status: Inactive Member Role Status Dates David Caputo MD Primary Care Provide r, Attending Provider Active Start: November 27, 2023 End: November 27, 2023 Automation Test Developer Relationship Specialty Start Date End Date David Caputo MD [address] [place] [address] PCP - General Family Practice 12/13/19 Jose Segura DO Physician Hematology/Oncology 07/13/19 Rola Gordon, HEAD BAKER.[facility] [address] [facility] [place] [address] Nurse Practitioner Hematology/Oncology 07/13/19 Automation Test Developer Relationship Specialty Start Date End Date David Caputo MD [address] [place] [address] PCP - General Family Practice 12/13/19 Jose Segura DO Physician Hematology/Oncology 07/13/19 Rola Gordon, HEAD BAKER.[employer] [address] [facility] [place] [address] Nurse Practitioner Hematology/Oncology 07/13/19 Automation Test Developer Relationship Specialty Start Date End Date David Caputo MD [address] [place] [facility] [place] [address] PCP - General Family Practice 12/13/19 Jose Segura DO Physician Hematology/Oncology 07/13/19 Rola Gordon, HEAD BAKER.[facility] [address] [place] [address] Nurse Practitioner Hematology/Oncology 07/13/19 Automation Test Developer Relationship Specialty Start Date End Date David Caputo MD [address] [place] [address] PCP - General Family Practice 12/13/19 Jose Segura, Physician Hematology/Oncology 07/13/19 Rola Gordon, HEAD BAKER.[employer] [address] [facility] [place] [address] Nurse Practitioner Hematology/Oncology 07/13/19 Automation Test Developer Relationship Specialty Start Date End Date David Caputo MD [address] [place] [address] PCP - General Family Practice 12/13/19 Jose Segura DO Physician Hematology/Oncology 07/13/19 Rola Gordon, HEAD BAKER.[employer] [address] [facility] [place] [address] Nurse Practitioner Hematology/Oncology 07/13/19 Automation Test Developer Relationship Specialty Start Date End Date David Caputo MD [address] [place] [facility] [place] [address] PCP - General Family Practice 12/13/19 Jose Segura DO Physician Hematology/Oncology 07/13/19 Rola Gordon, HEAD BAKER.[employer] [address] [facility] [place] [address] Nurse Practitioner Hematology/Oncology 07/13/19 Automation Test Developer Relationship Specialty Start Date End Date David Caputo MD [address] [place] [facility] [place] [id number] PCP - General Family Practice 12/13/19 Jose Segura DO Physician Hematology/Oncology 07/13/19 Rola Gordon, HEAD BAKER.[employer] [address] [facility] [place] [address] Nurse Practitioner Hematology/Oncology 07/13/19 Automation Test Developer Relationship Specialty Start Date End Date David Caputo MD [address] [place] [facility] [place] [address] PCP - General Family Practice 12/13/19 Jose Segura DO Physician Hematology/Oncology 07/13/19 Rola Gordon, HEAD BAKER.[employer] [address] [facility] [place] [address] Nurse Practitioner Hematology/Oncology 07/13/19 Automation Test Developer Relationship Specialty Start Date End Date David Caputo MD [address] [place] [facility] [place] [id number] PCP - General Family Practice 12/13/19 Jose Segura DO Physician Hematology/Oncology 07/13/19 Rola Gordon, HEAD BAKER.[employer] [address] [facility] [place] [address] Nurse Practitioner Hematology/Oncology 07/13/19 Automation Test Developer Relationship Specialty Start Date End Date David Caputo MD [address] [place] [facility] [place] [address] PCP - General Family Practice 12/13/19 Jose Segura DO Physician Hematology/Oncology 07/13/19 Rola Gordon, HEAD BAKER.[employer] [address] [facility] [place] [address] Nurse Practitioner Hematology/Oncology 07/13/19 Automation Test Developer Relationship Specialty Start Date End Date David Caputo MD [address] [place] [facility] [place] [address] PCP - General Family Practice 12/13/19 Jose Segura DO Physician Hematology/Oncology 07/13/19 Rola Gordon, HEAD BAKER.[employer] [address] [facility] [place] [address] Nurse Practitioner Hematology/Oncology 07/13/19 Automation Test Developer Relationship Specialty Start Date End Date Dvaid Caputo MD [address] [place] [place] [address] PCP - General Family Medicine 12/13/19 Jose Segura DO Physician Hematology/Oncology 07/13/19 Rola Gordon, HEAD BAKER.[employer] [address] [facility] [place] [address] Nurse Practitioner Hematology/Oncology 07/13/19 Automation Test Developer Relationship Specialty Start Date End Date David Caputo MD [address] [place] [facility] [place] [address] PCP - General Family Medicine 12/13/19 Jose Segura DO Physician Hematology/Oncology 07/13/19 Rola Gordon, HEAD BAKER.[employer] [address] [facility] [place] [address] Nurse Practitioner Hematology/Oncology 07/13/19 Automation Test Developer Relationship Specialty Start Date End Date David Caputo MD [address] [place] [address] PCP - General Family Medicine 12/13/19 Jose Segura DO Physician Hematology/Oncology 07/13/19 Rola Gordon, HEAD BAKER.[employer] [address] [facility] [place] [address] Nurse Practitioner Hematology/Oncology 07/13/19 Automation Test Developer Relationship Specialty Start Date End Date David Caputo MD [address] [place] [address] PCP - General Family Medicine 12/13/19 Jose Segura DO Physician Hematology/Oncology 07/13/19 Rola Gordon, HEAD BAKER.[employer] [address] [facility] [place] [address] Nurse Practitioner Hematology/Oncology 07/13/19 Automation Test Developer Relationship Specialty Start Date End Date David Caputo MD [address] [place] [place] [address] PCP - General Family Medicine 12/13/19 Jose Segura DO Physician Hematology/Oncology 07/13/19 Rola Gordon, HEAD BAKER.[employer] [address] [facility] [place] [address] Nurse Practitioner Hematology/Oncology 07/13/19 Automation Test Developer Relationship Specialty Start Date End Date David Caputo MD [address] [place] [place] [address] PCP - General Family Medicine 12/13/19 Jose Segura DO Physician Hematology/Oncology 07/13/19 Rola Gordon, HEAD BAKER.[employer] [address] [facility] [place] [address] Nurse Practitioner Hematology/Oncology 07/13/19 Automation Test Developer Relationship Specialty Start Date End Date David Caputo MD [address] [place] [place] [address] PCP - General Family Medicine 12/13/19 Jose Segura DO Physician Hematology/Oncology 07/13/19 Rola Gordon, HEAD BAKER.[employer] [address] [facility] [place] [address] Nurse Practitioner Hematology/Oncology 07/13/19 Automation Test Developer Relationship Specialty Start Date End Date David Caputo MD [address] [place] [place] [address] PCP - General Family Medicine 12/13/19 Jose Segura DO Physician Hematology/Oncology 07/13/19 Rola Gordon, HEAD BAKER.[employer] [address] [facility] [place] [address] Nurse Practitioner Hematology/Oncology 07/13/19 Automation Test Developer Relationship Specialty Start Date End Date David Caputo MD [address] [place] [place] [address] PCP - General Family Medicine 12/13/19 Jose Segura DO Physician Hematology/Oncology 07/13/19 Rola Gordon, HEAD BAKER.[employer] [address] [facility] [place] [address] Nurse Practitioner Hematology/Oncology 07/13/19 Automation Test Developer Relationship Specialty Start Date End Date David Caputo MD [address] [place] [place] [address] PCP - General Family Medicine 12/13/19 Jose Segura DO Physician Hematology/Oncology 07/13/19 Rola Gordon, HEAD BAKER.[employer] [address] [facility] [place] [address] Nurse Practitioner Hematology/Oncology 07/13/19 Automation Test Developer Relationship Specialty Start Date End Date David Caputo MD [address] [place] [place] [address] PCP - General Family Medicine 12/13/19 Jose Segura DO Physician Hematology/Oncology 07/13/19 Rola Gordon, HEAD BAKER.[employer] [address] [facility] [place] [address] Nurse Practitioner Hematology/Oncology 07/13/19 Automation Test Developer Relationship Specialty Start Date End Date David Caputo MD [address] [place] [place] [address] PCP - General Family Medicine 12/13/19 Jose Segura DO Physician Hematology/Oncology 07/13/19 Rola Gordon, HEAD BAKER.[facility] [address] [facility] [place] [address] Nurse Practitioner Hematology/Oncology 07/13/19 Automation Test Developer Relationship Specialty Start Date End Date David Caputo MD [address] [place] [place] [address] PCP - General Family Medicine 12/13/19 Jose Segura DO Physician Hematology/Oncology 07/13/19 Rola Gordon, HEAD BAKER.[employer] [address] [facility] [place] [address] Nurse Practitioner Hematology/Oncology 07/13/19 Automation Test Developer Relationship Specialty Start Date End Date David Caputo MD [address] [place] [place] [address] PCP - General Family Medicine 12/13/19 Jose Segura DO Physician Hematology/Oncology 07/13/19 Rola Gordon, HEAD BAKER.[employer] [address] [facility] [place] [address] Nurse Practitioner Hematology/Oncology 07/13/19 Automation Test Developer Relationship Specialty Start Date End Date David Caputo MD [address] [place] [place] [address] PCP - General Family Medicine 12/13/19 Jose Segura DO Physician Hematology/Oncology 07/13/19 Rola Gordon, HEAD BAKER.[employer] [address] [facility] [place] [address] Nurse Practitioner Hematology/Oncology 07/13/19 Automation Test Developer Relationship Specialty Start Date End Date David Caputo MD [address] [place] [place] [address] PCP - General Family Medicine 12/13/19 Jose Segura DO Physician Hematology/Oncology 07/13/19 Rola Gordon, HEAD BAKER.[employer] [address] [facility] [place] [address] Nurse Practitioner Hematology/Oncology 07/13/19 Team Status: Inactive Member Role Status Dates David Caputo MD Primary Care Provider Active Adriane Espitia MD Attending Provider Active Automation Test Developer Relationship Specialty Start Date End Date David Caputo MD [address] [place] [place] [address] PCP - General Family Medicine 12/13/19 Jose Segura DO Physician Hematology/Oncology 07/13/19 Rola Gordon, HEAD BAKER.[employer] [address] [facility] [place] [address] Nurse Practitioner Hematology/Oncology 07/13/19 Automation Test Developer Relationship Specialty Start Date End Date David Caputo MD [address] [place] [place] [address] PCP - General Family Medicine 12/13/19 Jose Segura DO Physician Hematology/Oncology 07/13/19 Rola Gordon, HEAD BAKER.[employer] [address] [facility] [place] [address] Nurse Practitioner Hematology/Oncology 07/13/19 Automation Test Developer Relationship Specialty Start Date End Date David Caputo MD [address] [place] [address] PCP - General Family Medicine 12/13/19 Jose Segura DO Physician Hematology/Oncology 07/13/19 Rola Gordon, HEAD BAKER.[employer] [address] [facility] [place] [address] Nurse Practitioner Hematology/Oncology 07/13/19 Automation Test Developer Relationship Specialty Start Date End Date David Caputo MD [address] [place] [address] PCP - General Family Medicine 12/13/19 Jose Segura DO Physician Hematology/Oncology 07/13/19 Rola Gordon, HEAD BAKER.[employer] [address] [facility] [place] [address] Nurse Practitioner Hematology/Oncology 07/13/19 Automation Test Developer Relationship Specialty Start Date End Date David Caputo MD [address] [place] [place] [address] PCP - General Family Medicine 12/13/19 Jose Segura DO Physician Hematology/Oncology 07/13/19 Rola Gordon, HEAD BAKER.[employer] [address] [facility] [place] [address] Nurse Practitioner Hematology/Oncology 07/13/19 Automation Test Developer Relationship Specialty Start Date End Date David Caputo MD [address] [place] [place] [address] PCP - General Family Medicine 12/13/19 Jose Segura DO Physician Hematology/Oncology 07/13/19 Rola Grodon, HEAD BAKER.[employer] [address] [facility] [place] [address] Nurse Practitioner Hematology/Oncology 07/13/19 Automation Test Developer Relationship Specialty Start Date End Date David Caputo MD [address] [place] [place] [address] PCP - General Family Medicine 12/13/19 Jose Segura DO Physician Hematology/Oncology 07/13/19 Rola Gordon, HEAD BAKER.[employer] [address] [facility] [place] [address] Nurse Practitioner Hematology/Oncology 07/13/19 Automation Test Developer Relationship Specialty Start Date End Date David Caputo MD [address] [place] [address] [id number] PCP - General Family Medicine 07/16/23 Team Status: Inactive Member Role Status Dates David Caputo MD Attending Provider Active St art: June 04, 2023 End: June 04, 2023 Team Status: Inactive Member Role Status Dates Rick Zapata DO Attending Provider Active Start: August 05, 2023 End: August 05, 2023 Automation Test Developer Relationship Specialty Start Date End Date David Caputo MD [address] [place] [address] [id number] PCP - General Family Medicine 07/16/23 Automation Test Developer Relationship Specialty Start Date End Date David Caputo MD [address] [place] [address] PCP - General Family Medicine 07/16/23 Automation Test Developer Relationship Specialty Start Date End Date David Caputo MD [address] [place] [address] PCP - General Family Medicine 12/13/19 Jose Segura DO Physician Hematology/Oncology 07/13/19 Rola Gordon, HEAD BAKER.[employer] [address] [place] [address] [place] [address] Nurse Practitioner Hematology/Oncology 07/13/19 Automation Test Developer Relationship Specialty [place] [address] [place] [address] PCP - General Family Medicine 12/13/19 Jose Segura DO Physician Hematology/Oncology 07/13/19 Rola Gordon, HEAD BAKER.[employer] [address] [facility] [place] [address] Nurse Practitioner Hematology/Oncology 07/13/19 Automation Test Developer Relationship Specialty Start Date End Date David Caputo MD [address] [place] [place] [address] PCP - General Family Medicine 12/13/19 Jose Segura DO Physician Hematology/Oncology 07/13/19 Rola Gordon, HEAD BAKER.[employer] [address] [facility] [place] [address] Nurse Practitioner Hematology/Oncology 07/13/19 Automation Test Developer Relationship Specialty Start Date End Date David Caputo MD [address] [place] [place] [address] PCP - General Family Medicine 12/13/19 Jose Segura DO Physician Hematology/Oncology 07/13/19 Rola Gordon, HEAD BAKER.[employer] [address] [facility] [place] [address] Nurse Practitioner Hematology/Oncology 07/13/19 Automation Test Developer Relationship Specialty Start Date End Date David Caputo MD [address] [place] [place] [address] PCP - General Family Medicine 12/13/19 Jose Segura DO Physician Hematology/Oncology 07/13/19 Rola Gordon, HEAD BAKER.[employer] [address] [facility] [place] [address] Nurse Practitioner Hematology/Oncology 07/13/19 Team Status: Inactive Member Role Status Dates David Caputo MD Primary Care Provide r, Attending Provider Active Start: August 27, 2023 End: August 27, 2023 Automation Test Developer Relationship Specialty Start Date End Date David Caputo MD [address] [place] [address] PCP - General Family Medicine 12/13/19 Jose Segura DO Physician Hematology/Oncology 07/13/19 Rola Gordon, HEAD BAKER.[employer] [address] [facility] [place] [address] Nurse Practitioner Hematology/Oncology 07/13/19 Automation Test Developer Relationship Specialty Start Date End Date David Caputo MD PCP - General 06/29/99 Automation Test Developer Relationship Specialty Start Date End Date David Caputo MD [address] [place] [address] PCP - General Family Medicine 12/13/19 Jose Segura DO Physician Hematology/Oncology 07/13/19 Rola Gordon, HEAD BAKER.[employer] [address] [place] [address] Nurse Practitioner Hematology/Oncology 07/13/19 Team Status: Active Member Role Status Dates David Caputo MD Primary Care Provide r, Attending Provider Active Start: December 03, 2023 Team Status: Inactive Member Role Status Dates David Caputo MD Primary Care Provide r, Attending Provider Active Start: December 24, 2023 End: December 24, 2023 Automation Test Developer Relationship Specialty Start Date End Date David Caputo MD [address] [place] [place] [address] PCP - General Family Medicine 12/13/19 Jose Segura DO Physician Hematology/Oncology 07/13/19 Rola Gordon, HEAD BAKER.[employer] [address] [place] [address] Nurse Practitioner Hematology/Oncology 07/13/19 Automation Test Developer Relationship Specialty Start Date End Date David Caputo MD [address] [place] [place] [address] PCP - General Family Medicine 12/13/19 Jose Segura DO Physician Hematology/Oncology 07/13/19 Rola Gordon, HEAD BAKER.[employer] [address] [place] [address] Nurse Practitioner Hematology/Oncology 07/13/19 Automation Test Developer Relationship Specialty Start Date End Date David Caputo MD [address] [place] [place] [address] PCP - General Family Medicine 12/13/19 Jose Segura DO Physician Hematology/Oncology 07/13/19 Rola Gordon, HEAD BAKER.[employer] [address] [facility] [place] [address] Nurse Practitioner Hematology/Oncology 07/13/19 Automation Test Developer Relationship Specialty Start Date End Date David Caputo MD [address] [place] [address] PCP - General Family Medicine 12/13/19 Jose Segura DO Physician Hematology/Oncology 07/13/19 Rola Gordon, HEAD BAKER.[employer] [address] [facility] [place] [address] Nurse Practitioner Hematology/Oncology 07/13/19 Automation Test Developer Relationship Specialty Start Date End Date David Caputo MD [address] [place] [address] PCP - General Family Medicine 12/13/19 Jose Segura DO Physician Hematology/Oncology 07/13/19 Rola Gordon, HEAD BAKER.[employer] [address] [facility] [place] [address] Nurse Practitioner Hematology/Oncology 07/13/19 Automation Test Developer Relationship Specialty Start Date End Date David Caputo MD [address] [place] [address] PCP - General Family Medicine 12/13/19 Jose Segura DO Physician Hematology/Oncology 07/13/19 Rola Gordon, HEAD BAKER.[employer] [address] [facility] [place] [address] Nurse Practitioner Hematology/Oncology 07/13/19 Automation Test Developer Relationship Specialty Start Date End Date David Caputo MD [address] [place] [place] [address] PCP - General Family Medicine 12/13/19 Jose Segura DO Physician Hematology/Oncology 07/13/19 Rola Gordon, HEAD BAKER.[employer] [address] [facility] [place] [address] Nurse Practitioner Hematology/Oncology 07/13/19 Automation Test Developer Relationship Specialty Start Date End Date David Caputo MD [address] [place] [address] PCP - General Family Medicine 12/13/19 Jose Segura DO Physician Hematology/Oncology 07/13/19 Rola Gordon, HEAD BAKER.[employer] [address] [facility] [place] [address] Nurse Practitioner Hematology/Oncology 07/13/19 Automation Test Developer Relationship Specialty Start Date End Date David Caputo MD [address] [place] [address] PCP - General Family Medicine 12/13/19 Jose Segura DO Physician Hematology/Oncology 07/13/19 Rola Gordon, HEAD BAKER.[employer] [address] [facility] [place] [address] Nurse Practitioner Hematology/Oncology 07/13/19 Automation Test Developer Relationship Specialty Start Date End Date David Caputo MD [address] [place] [address] PCP - General Family Medicine 12/13/19 Jose Segura DO Physician Hematology/Oncology 07/13/19 Rola Gordon, HEAD BAKER.[employer] [address] [facility] [place] [address] Nurse Practitioner Hematology/Oncology 07/13/19 Automation Test Developer Relationship Specialty Start Date End Date David Caputo MD [address] [place] [address] PCP - General Family Medicine 12/13/19 Jose Segura DO Physician Hematology/Oncology 07/13/19 Rola Gordon, HEAD BAKER.[employer] [address] [facility] [place] [address] Nurse Practitioner Hematology/Oncology 07/13/19 Team Status: Active Member Role Status Dates David Caputo MD Primary Care Provider Active Start: March 03, 2024 Zahra May MD Attending Provider Active Start: March 03, 2024 Team Status: Active Member Role Status Dates David Caputo MD Primary Care Provide r, Attending Provider Active Start: April 29, 2024 Team Status: Inactive Member Role Status Dates David Caputo MD Primary Care Provide r, Attending Provider Active Start: May 06, 2024 End: May 06, 2024 Reason for Visit (unrecogniz ed section and [...] anemia, unspecified iron deficiency anemia type Zahra May MD [address] [place] [address] [place] [address] [facility] [address] [place] [address] Referral ID Status Reason Start Date Expiration Date V isits Requested Visits Authorized [id number] Authorized 03/08/2022 06/06/2022 99 99 Reason Onset [...] Reason Onset Date Comments Refill Request 03/30/2023 Reason Onset Date Comments Refill Request 08/31/2023 Reason Onset Date Comments Refill Request 09/04/2023 Reason Comments Medication Problem Reason Onset Date Comments Refill Request 09/08/2023 Reason Comments Medication Authorization Reason Comments Macrocytosis Reason Onset Date Comments Refill Request 09/18/2023 Reason Onset Date Comments Refill Request 10/06/2023 Reason Onset Date Comments Refill Request 10/15/2023 Reason Comments Annual Exam 1y Reason Onset Date Comments Refill Request 11/16/[address] Specialty Diagnoses / Procedures Referred By Contac t Referred To Contact CT IMAGING Diagnoses Iron deficiency anemia secondary to inadequate dietary iron intake Cancer of ampulla of Vater (HCC) Anemia due to vitamin B12 deficiency, unspecified B12 deficiency type Procedures CT ABD/PEL W IVCON CT ABD & PELVIS W/CONTRAST Zahra May MD [address] [place] [address] [place] [address] [place] [id number] Referral ID Status Reason Start Date Expiration Date V isits Requested Visits Authorized [id number] Closed Auto-Generate d Referral 03/04/2024 01/01/2025 1 1 Reason Comments Radiology [place] Specialty Diagnoses / Procedures Referred By Contac t Referred To Contact CT IMAGING Diagnoses Cancer of ampulla of Vater (HCC) Anemia due to vitamin B12 deficiency, unspecified B12 deficiency type Severe protein-calorie malnutrition (HCC) Procedures CT ABD/PEL W IVCON CT ABD & PELVIS W/CONTRAST Zahra May MD [address] [place] [address] [place] [address] [place] [address] Referral ID Status Reason Start Date Expiration Date V isits Requested Visits Authorized [id number] Closed Auto-Generate d Referral 06/29/2023 04/14/2024 1 1 Reason Comments Radiology NM Specialty Diagnoses / Procedures Referred By Contac t Referred To Contact MOLECULAR & FUNCTIONAL IMAGING Diagnoses Cancer of ampulla of Vater (HCC) Procedures NM PET/CT SKULL-THIGH INITIAL PET IMAGING CT ATTENUATION SKULL BASE MID-THIGH Zahra May MD [address] [facility] [address] Molecular & Functional Imaging [address] [place] [address] Referral ID Status Reason Start Date Expiration Date V isits Requested Visits Authorized [id number] Closed Auto-Generate d Referral 03/05/2023 03/20/2024 1 1 Specialty Diagnoses / Procedures Referred By Contac t Referred To Contact CT IMAGING Diagnoses Interstitial pulmonary disease (HCC) Cancer of ampulla of Vater (HCC) Anemia due to vitamin B12 deficiency, unspecified B12 deficiency type Procedures CT CHEST W IVCON DIAGNOSTIC COMPUTED TOMOGRAPHY THORAX W/CONTRAST Zahra May MD [address] [facility] [place] [address] [place] [address] Referral ID Status Reason Start Date Expiration Date V isits Requested Visits Authorized [id number] Closed Auto-Generate d Referral 07/04/2022 07/06/2023 1 1 Specialty Diagnoses / Procedures Referred By Contac t Referred To Contact CT IMAGING Diagnoses Iron deficiency anemia, unspecified iron deficiency anemia type 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) Procedures CT CHEST W IVCON DIAGNOSTIC COMPUTED TOMOGRAPHY THORAX W/CONTRAST Zahra May MD [address] [place] [address] [place] [address] [place] [id number] Referral ID Status Reason Start Date Expiration Date V isits Requested Visits Authorized [id number] Closed Auto-Generate d Referral 02/04/2022 01/04/2023 1 1 Reason Onset Date Comments Refill Request 03/31/2024 Goals (unrecognized section and content) Goals may be documented in a n alternate section Inactive Administered Medications - up to 3 most recent administrations Administered Medications (un recognized section and content) Medication Order MAR Action Action Date Dose Rate Site cyanocobalamin 1,000 mcg injection 1,000 mcg, INTRAMUSCULAR, ONCE, 1 dose, On [place] 09/10/23 at 1430 Given 09/10/2023 2:30 PM EDT 1,000 mcg Deltoid, Left Inactive Administered Medications - up to 3 most recent administrations Medication Order MAR Action Action Date Dose Rate Site cyanocobalamin 1,000 mcg injection 1,000 mcg, INTRAMUSCULAR, ONCE, 1 dose, On [place] 10/08/23 at 1500 Given 10/08/2023 3:00 PM EDT 1,000 mcg Deltoid, Right FOR RECORDS PERTAINING TO PATIENTS WHO ARE [...] BE BASED ON THE PRIMARY CLINICAL RECORDS. [facility] [facility]. provides no warranty or guarantee of the accuracy or completeness of information in this document.
--- NOTE | 2024-05-27 10:40 | CT_ITS ---
[address] [address] Patient Name: ROCIO JACKSON MRN: [facility]:[id number] date: 1955 Sex: M Assigned Patient Location: ER Current Patient Location: ER Accession/Order Number: [id number] Exam Date: 05/27/2024 11:25 Report Date: 05/27/2024 12:32 At the request of: JOYA MELGAR Procedure: CT abdomen pelvis w con EXAMINATION: CT abdomen pelvis w con HISTORY: GI bleed COMPARISON: CT abdomen pelvis 07/16/2023 TECHNIQUE: Axial, Coronal, and Sagittal images were obtained without and/or with IV contrast as indicated by examination type. Dose reduction techniques were achieved by using automated exposure control and/or adjustment of mA and/or kV according to patient size and/or use of iterative reconstruction technique. FINDINGS: LUNG BASES: Atherosclerotic coronary artery disease. No acute infiltrates within lung bases. LIVER: No enlargement, atrophy, suspicious density, or significant focal lesion. BILIARY: Cholecystectomy. 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 PANCREAS: No lesion, fluid collection, or abnormal duct dilatation. SPLEEN: No enlargement or focal lesion. ADRENALS: No mass or enlargement. KIDNEYS: No mass, obstruction, or calcification. BOWEL/MESENTERY: Fluid-filled small bowel throughout the abdomen and pelvis. Multiple mildly distended loops within right upper and lower quadrant with circumferential wall thickening of small bowel within lower abdomen and pelvis. No free air or free fluid. AORTA/VASCULAR: No aneurysm or dissection. RETROPERITONEUM: No mass or adenopathy. LYMPH NODES: No adenopathy. URINARY BLADDER: No visible focal wall thickening, lesion, or calculus. PELVIC ORGANS: No visible mass. Pelvic organs appropriate for patient age. ABDOMINAL WALL: No mass or hernia. BONES: No bony lesion or fracture. OTHER: Negative. CT/CT abdomen pelvis w con IMPRESSION: 1. Fluid-filled loops of small bowel with scattered areas of wall thickening, predominantly involving long segments of prominent wall thickening within the lower right abdomen suspected to represent enteritis. No bowel obstruction, free air, free fluid. No appreciable mass. Follow-up to document improvement and to exclude a mass is recommended. Electronically authenticated by: REBA REID Date: 05/27/2024 12:32
--- NOTE | 2024-05-27 10:40 | ECG_ITS ---
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
--- NOTE | 2024-05-27 10:41 | ED_ITS ---
HPI HPI - General Adult General Chief complaint: GI Bleed Stated complaint: blood in stool Time Seen by Provider: 05/27/24 10:27 Source: family Mode of arrival: Wheelchair Limitations: physical limitation History of Present Illness HPI narrative: 68-year-old male presents to the emergency department for blood in his stools. It has been like that for a few days. The patient himself does not seem to have any complaints. He states that his abdomen does not hurt and he does not feel weak or dizzy. He is on Eliquis because of heart issues. Family reports he had a GI bleed in the past and that he had a colonoscopy. Related Data Home Medications ?Medication ?Instructions ?Recorded ?Confirmed atorvastatin 40 mg tablet 20 mg PO QPM 12/22/22 08/05/23 baclofen 5 mg tablet 5 mg PO BID PRN muscle spasm 12/22/22 05/27/24 fluoxetine 20 mg capsule 40 mg PO DAILY 12/22/22 05/27/24 folic acid 1 mg tablet 1 mg PO DAILY 12/22/22 05/27/24 namjyq-odjsmmwu-srasdgj 2 cap PO TID 12/22/22 05/27/24 24,000-76,000-120,000 unit capsule,delayed rel (Creon) metoclopramide HCl 10 mg tablet 10 mg PO TID 12/22/22 05/27/24 metoprolol succinate 25 mg capsule 25 mg PO DAILY 12/22/22 08/05/23 sprinkle, ext. release 24 hr sitagliptin phosphate 50 1 tab PO BID 12/22/22 05/27/24 mg-metformin 1,000 mg tablet (Janumet) baclofen 10 mg tablet 5 mg PO TID PRN muscle spasm 01/19/23 05/27/24 mirtazapine 15 mg tablet 15 mg PO .QHS PRN Not Specified 01/19/23 05/27/24 insulin lispro 100 unit/mL 1 sliding scale dose subcut 08/05/23 08/05/23 subcutaneous solution USEASDIRECTD apixaban 2.5 mg tablet (Eliquis) 2.5 mg PO BID 05/27/24 05/27/24 atorvastatin 20 mg tablet 20 mg PO DAILY 05/27/24 05/27/24 buspirone 10 mg tablet 10 mg PO BID 05/27/24 05/27/24 docusate sodium 100 mg capsule 100 mg PO DAILY 05/27/24 05/27/24 omeprazole 20 mg capsule,delayed 20 mg PO DAILY 05/27/24 05/27/24 release ropinirole 1 mg tablet 1 mg PO DAILY 05/27/24 05/27/24 Previous Rx's ?Medication ?Instructions ?Recorded alprazolam 0.25 mg tablet 0.25 mg PO TID PRN anxiety 5 days 07/19/23 #15 tabs cefdinir 300 mg capsule 300 mg PO BID 7 days #14 caps 07/19/23 metronidazole 500 mg tablet 500 mg PO QID 7 days #28 tabs 07/19/23 Allergies Allergy/AdvReac Type Severity Reaction Status Date / Time No Known Drug Allergies Allergy Verified 07/16/23 00:25 Opioid HPI Opioid Management Most Recent Opioid Data: Last Pain Scale 4 07/19/23 13:00 07/19/23 Last Pain Intensity 0 01/22/23 10:03 01/22/23 Ur Phencyclidine Scrn Negative (NEGATIVE) 01/19/23 16:40 12/28 10/19 Review of Systems ROS Narrative A ten point review of systems is negative except as noted above. [facility] Medical History (Updated 05/27/24 @ 14:19 by Regan Grady MD) Moderate protein-calorie malnutrition ?E44.0 - Moderate protein-calorie malnutrition (ICD-10) Type 2 diabetes mellitus with hyperglycemia ?E11.65 - Type 2 diabetes mellitus with hyperglycemia (ICD-10) Anemia due to blood loss, chronic ?D50.0 - Iron deficiency anemia secondary to blood loss (chronic) (ICD-10) Paroxysmal atrial fibrillation ?I48.0 - Paroxysmal atrial fibrillation (ICD-10) Chronic HFrEF (heart failure with reduced ejection fraction) ?I50.22 - Chronic systolic (congestive) heart failure (ICD-10) H/O malignant neoplasm of stomach ?Z85.028 - Personal history of other malignant neoplasm of stomach (ICD-10) CAD (coronary artery disease) ?I25.10 - Atherosclerotic heart disease of [place] coronary artery without angina pectoris (ICD-10) Severe protein-calorie malnutrition ?E43 - Unspecified severe protein-calorie malnutrition (ICD-10) Anemia ?D64.9 - Anemia, unspecified (ICD-10) Low back pain ?M54.50 - Low back pain, unspecified (ICD-10) Myalgia ?M79.10 - Myalgia, unspecified site (ICD-10) Chronic pain syndrome ?G89.4 - Chronic pain syndrome (ICD-10) Abnormal CT of the abdomen ?R93.5 - Abnormal findings on diagnostic imaging of other abdominal regions, including retroperitoneum (ICD-10) Malnutrition ?E46 - Unspecified protein-calorie malnutrition (ICD-10) Afib ?I48.91 - Unspecified atrial fibrillation (ICD-10) Depression with anxiety ?F41.8 - Other specified anxiety disorders (ICD-10) Anemia ?D64.9 - Anemia, unspecified (ICD-10) Type 2 diabetes mellitus ?E11.9 - Type 2 diabetes mellitus without complications (ICD-10) Carotid artery calcification ?I65.29 - Occlusion and stenosis of unspecified carotid artery (ICD-10) CHF (congestive heart failure) ?I50.9 - Heart failure, unspecified (ICD-10) Cardiomyopathy ?I42.9 - Cardiomyopathy, unspecified (ICD-10) Anxiety ?F41.9 - Anxiety disorder, unspecified (ICD-10) Myocardial infarct ?I21.9 - Acute myocardial infarction, unspecified (ICD-10) Stomach cancer ?C16.9 - Malignant neoplasm of stomach, unspecified (ICD-10) Surgical History 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) ?Z90.49 - Acquired absence of other specified parts of digestive tract (ICD- 10) History of coronary artery stent placement ?Z95.5 - Presence of coronary angioplasty implant and graft (ICD-10) Family History Father Family history of COPD (chronic obstructive pulmonary disease) Family history of CHF (congestive heart failure) Mother Family history of diabetes mellitus Social History Within the past year, how often did you have a drink containing alcohol: monthly or less Within the past year, how many standard drinks containing alcohol did you have on a typical day: 1 or 2 Within the past year, how often did you have six or more drinks on one occasion: never Total score: 0 Score interpretation: A score less than 4 is consistent with normal alcohol consumption. 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 Known occupational exposures/hazards: Yes Known occupational exposures/hazards details: dust Highest level of school completed/degree received: 12th grade, no diploma Are you now , , , , never or living with a partner: In a typical week, how many times do you talk on the telephone with family, friends, or neighbors: 3 or more times per week How often do you get together with friends or relatives: 3 or more times per week How often do you attend catholic or caodaism services: never Do you belong to any clubs or organizations such as catholic groups unions, [employer] or athletic groups, or school groups: no Total score: 1 Score interpretation: A score of less than or equal to 1 indicates the most socially isolated. Little interest or pleasure in doing things: several days Feeling down, depressed, or hopeless: several days Feel stressed/tense/nervous/anxious/difficulty sleeping: not at all Due to disability, difficulty making decisions: No Exam Narrative Exam Narrative: Nurses note and vital signs reviewed and patient is not hypoxic. General: The patient appears well and in no apparent distress. Patient is resting comfortably on cart. Skin: Warm, dry, pallor noted. There is no rash noted. Head: Normocephalic, atraumatic Eye: Normal conjunctiva, no drainage Ears, Nose, Mouth, and Throat: oral mucosa is moist. Nares patent. Cardiovascular: Regular Rate and Rhythm Respiratory: Patient is in no distress, no accessory muscle use, lungs are clear to auscultation, no wheezing, rales or rhonchi Back: non-tender GI: Soft and nontender Musculoskeletal: The patient has no evidence of calf tenderness, no pitting edema, symmetrical pulses noted bilaterally Neurological: Awake and alert Psychiatric: Cooperative Constitutional Vital Signs, click to edit/add: Last Vital Signs Temp 98.1 F 05/27/24 10:30 Pulse 102 H 05/27/24 13:00 Resp 14 05/27/24 13:00 BP 96/59 05/27/24 13:00 Pulse Ox 98 05/27/24 13:00 O2 Del Method Room Air 05/27/24 10:30 Course Vital Signs Vital signs: Vital Signs Temperature 98.1 F 05/27/24 10:30 Pulse Rate 100 H 05/27/24 10:30 Respiratory Rate 18 05/27/24 10:30 Blood Pressure 85/57 L 05/27/24 10:30 Pulse Oximetry 100 05/27/24 10:30 Oxygen Delivery Method Room Air 05/27/24 10:30 Temperature 98.1 F 05/27/24 10:30 Pulse Rate 102 H 05/27/24 13:00 Respiratory Rate 14 05/27/24 13:00 Blood Pressure 96/59 05/27/24 13:00 Pulse Oximetry 98 05/27/24 13:00 Oxygen Delivery Method Room Air 05/27/24 10:30 Medical Decision Making MDM Narrative Medical decision making narrative: The patient has a GI bleed. His hemoglobin is 7.4 and his blood pressure has been in the 90s. I spoke to Dr. Oliver and we are in agreement that the patient needs a much higher level of care. Family has requested [facility] I have spoken to the manager mission there as well as the PA for Dr. Howard and they accept the patient. The patient is agreeable and stable for transfer. Findings are discussed thoroughly with the patient and his family Differential Diagnosis Differential Diagnosis: Upper GI bleed, lower GI Lab Data Lab results reviewed: Yes I reviewed the patient's lab results Labs: Lab Results 05/27/24 05/27/24 Range/Units 10:51 10:54 WBC 3.1 L (4.0-11.0) 10^3/uL RBC 2.14 L (4.70-6.10) 10^6/uL Hgb 7.4 L (14.0-18.0) g/dL Hct 22.9 L* (42.0-54.0) % MCV 107.0 H (80.0-94.0) fL MCH 34.6 H (25.9-34.0) pg MCHC 32.3 (29.9-35.2) g/dL RDW 12.8 (11.0-15.0) % Plt Count 238 (150-450) 10^3/uL MPV 9.8 (9.5-13.5) fL Neut % (Auto) 54.5 (43.0-75.0) % Lymph % (Auto) 32.9 (20.5-60.0) % [place] % (Auto) 8.1 (1.7-12.0) % Eos % (Auto) 2.3 (0.9-7.0) % Baso % (Auto) 0.6 (0.2-2.0) % Neut # (Auto) 1.7 (1.4-6.5) 10^3/uL Lymph # (Auto) 1.0 L (1.2-3.8) 10^3/uL [place] # (Auto) 0.3 (0.3-0.8) 10^3/uL Eos # (Auto) 0.1 (0.0-0.7) 10^3/uL Baso # (Auto) 0.0 (0.0-0.1) 10^3/uL Abs Immat Gran (auto) 0.05 H (0.00-0.03) 10^3/uL Imm/Tot Granulo (auto) 1.6 H (0.0-0.5) % Sodium 137 (136-145) mmol/L Potassium 4.4 (3.5-5.1) mmol/L Chloride 104 (98-107) mmol/L Carbon Dioxide 24.3 (21.0-32.0) mmol/L Anion Gap 13.1 BUN 45.0 H (7.0-18.0) mg/dL Creatinine 0.90 (0.70-1.30) mg/dL Est GFR ( Amer) >60 (>=60 mL/min/1.73m^2) Est GFR (Non-Af Amer) >60 (>=60 mL/min/1.73m^2) BUN/Creatinine Ratio 50.0 Glucose 98 (74-106) mg/dL Calcium 8.3 L (8.5-10.1) mg/dL Troponin I High Sens 7.0 (4.0-76.1) pg/mL Stool Occult Blood Positive A Imaging Data CT scan - abdomen: Radiologist's impression: ITS Impressions Abdomen/Pelvis CT 05/27/24 10:40 IMPRESSION: 1. Fluid-filled loops of small bowel with scattered areas of wall thickening, predominantly involving long segments of prominent wall thickening within the lower right abdomen suspected to represent enteritis. No bowel obstruction, free air, free fluid. No appreciable mass. Follow-up to document improvement and to exclude a mass is recommended. Electronically authenticated by: REBA REID Date: 05/27/2024 12:32 ECG Data Attestation: I personally reviewed and interpreted this ECG as follows: (EKG on my interpretation shows sinus rhythm with a rate of 89) Discharge Plan Discharge Chief Complaint: GI Bleed Clinical Impression: GI bleed, Anemia Patient Disposition: [facility] Time of Disposition Decision: 14:19 Discharge Location: [facility] Condition: Fair Mode of Transportation: EMS
[2024-05-27 11:06] LABS: Basophils Percent Auto 0.6 % (0.2-2.0); Eosinophils Absolute Auto 0.1 10^3/uL (0.0-0.7); Eosinophils Percent Auto 2.3 % (0.9-7.0); Hemoglobin 7.4 g/dL (14.0-18.0); Immature Granulocytes Abs Auto 0.05 10^3/uL (0.00-0.03); Immature Granulocytes Pct Auto 1.6 % (0.0-0.5); Lymphocytes Percent Auto 32.9 % (20.5-60.0); Mean Corpuscular HGB Conc 32.3 g/dL (29.9-35.2); Mean Corpuscular Hemoglobin 34.6 pg (25.9-34.0); Mean Platelet Volume 9.8 fL (9.5-13.5); Monocytes Absolute Auto 0.3 10^3/uL (0.3-0.8); Monocytes Percent Auto 8.1 % (1.7-12.0); Neutrophils Absolute Auto 1.7 10^3/uL (1.4-6.5); Neutrophils Percent Auto 54.5 % (43.0-75.0); Platelet Count 238 10^3/uL (150-450); Red Blood Count 2.14 10^6/uL (4.70-6.10); Red Cell Distribution Width 12.8 % (11.0-15.0); White Blood Count 3.1 10^3/uL (4.0-11.0)
[2024-05-27] MEDS: 0.9 % SODIUM CHLORIDE 1,000 ML 500 ML IV (11:06)
[2024-05-27 11:08] LABS: Hematocrit 22.9 % (42.0-54.0)
[2024-05-27 11:08] LABS: Internal Control Within Normal Limits; Occult Blood Positive
[2024-05-27 11:19] LABS: Anion Gap 13.1; Calcium 8.3 mg/dL (8.5-10.1); Carbon Dioxide 24.3 mmol/L (21.0-32.0); Chloride 104 mmol/L (98-107); Estimated GFR (African America >60 (>=60 mL/min/1.73m^2); Estimated GFR (Non-African Ame >60 (>=60 mL/min/1.73m^2); Glucose 98 mg/dL (74-106); Potassium 4.4 mmol/L (3.5-5.1); Sodium 137 mmol/L (136-145)
[2024-05-27] MEDS: PANTOPRAZOLE SODIUM 40 MG VIAL IV (13:01)
[2024-05-27 15:41] LABS: Basophils Percent Auto 0.3 % (0.2-2.0); Eosinophils Percent Auto 1.3 % (0.9-7.0); Immature Granulocytes Abs Auto 0.01 10^3/uL (0.00-0.03); Immature Granulocytes Pct Auto 0.3 % (0.0-0.5); Lymphocytes Absolute Auto 0.8 10^3/uL (1.2-3.8); Mean Corpuscular HGB Conc 32.7 g/dL (29.9-35.2); Mean Corpuscular Hemoglobin 34.8 pg (25.9-34.0); Mean Corpuscular Volume 106.6 fL (80.0-94.0); Mean Platelet Volume 9.4 fL (9.5-13.5); Monocytes Absolute Auto 0.4 10^3/uL (0.3-0.8); Monocytes Percent Auto 12.6 % (1.7-12.0); Neutrophils Percent Auto 61.5 % (43.0-75.0); Platelet Count 226 10^3/uL (150-450); Red Blood Count 1.98 10^6/uL (4.70-6.10); White Blood Count 3.2 10^3/uL (4.0-11.0)
[2024-05-27 15:49] LABS: Hemoglobin 6.9 g/dL (14.0-18.0)
[2024-05-27 15:50] LABS: Hematocrit 21.1 % (42.0-54.0)
== END 2024-05-27 18:00 | disposition short-term general hospital (02) ==
PROVIDERS: Emergency Provider Emergency Medicine; PCP Family Medicine
DX: K92.2 Gastrointestinal hemorrhage, unspecified (principal); D64.9 Anemia, unspecified; Z79.01 Long term (current) use of anticoagulants; Z95.5 Presence of coronary angioplasty implant and graft; Z90.410 Acquired total absence of pancreas
CPT/HCPCS: 36415; 36430; 74177; 80048; 84484; 85025; 86850; 86900; 86901; 93005; 99285; G0328; P9016; Q9967

== ENCOUNTER 2024-06-16 13:42 | Outpatient (OUT) | payer MEDICARE, SELFPAY ==
--- NOTE | 2024-06-16 13:43 | P.CN_ITS ---
Consult Note: HPI Data of Consult Patient: known to practice within the last 3 years Requesting Physician: Celia King NP Primary Care Provider: Carrie Caputo MD Consult Narrative Reason for consult: f/u Narrative: Geraldo Whitehead a pleasant 67 year old male presents for evaluation of chronic low back pain, patient presents today in . Pain today 6/10, achey without radiation. Patient tolerates medication well without side effects. Significant functional decline since last visit, FRANCIA 74%. cc:: CC: Celia King NP Review of Systems ROS Status of ROS 10 or more systems reviewed and unremark able except as noted in history and below [facility] Medical History (Updated 05/27/24 @ 14:19 by Regan Grady MD) Moderate protein-calorie malnutrition ?E44.0 - Moderate protein-calorie malnutrition (ICD-10) Type 2 diabetes mellitus with hyperglycemia ?E11.65 - Type 2 diabetes mellitus with hyperglycemia (ICD-10) Anemia due to blood loss, chronic ?D50.0 - Iron deficiency anemia secondary to blood loss (chronic) (ICD-10) Paroxysmal atrial fibrillation ?I48.0 - Paroxysmal atrial fibrillation (ICD-10) Chronic HFrEF (heart failure with reduced ejection fraction) ?I50.22 - Chronic systolic (congestive) heart failure (ICD-10) H/O malignant neoplasm of stomach ?Z85.028 - Personal history of other malignant neoplasm of stomach (ICD-10) CAD (coronary artery disease) ?I25.10 - Atherosclerotic heart disease of [place] coronary artery without angina pectoris (ICD-10) Severe protein-calorie malnutrition ?E43 - Unspecified severe protein-calorie malnutrition (ICD-10) Anemia ?D64.9 - Anemia, unspecified (ICD-10) Low back pain ?M54.50 - Low back pain, unspecified (ICD-10) Myalgia ?M79.10 - Myalgia, unspecified site (ICD-10) Chronic pain syndrome ?G89.4 - Chronic pain syndrome (ICD-10) Abnormal CT of the abdomen ?R93.5 - Abnormal findings on diagnostic imaging of other abdominal regions, including retroperitoneum (ICD-10) Malnutrition ?E46 - Unspecified protein-calorie malnutrition (ICD-10) Afib ?I48.91 - Unspecified atrial fibrillation (ICD-10) Depression with anxiety ?F41.8 - Other specified anxiety disorders (ICD-10) Anemia ?D64.9 - Anemia, unspecified (ICD-10) Type 2 diabetes mellitus ?E11.9 - Type 2 diabetes mellitus without complications (ICD-10) Carotid artery calcification ?I65.29 - Occlusion and stenosis of unspecified carotid artery (ICD-10) CHF (congestive heart failure) ?I50.9 - Heart failure, unspecified (ICD-10) Cardiomyopathy ?I42.9 - Cardiomyopathy, unspecified (ICD-10) Anxiety ?F41.9 - Anxiety disorder, unspecified (ICD-10) Myocardial infarct ?I21.9 - Acute myocardial infarction, unspecified (ICD-10) Stomach cancer ?C16.9 - Malignant neoplasm of stomach, unspecified (ICD-10) Surgical History 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) ?Z90.49 - Acquired absence of other specified parts of digestive tract (ICD- 10) History of coronary artery stent placement ?Z95.5 - Presence of coronary angioplasty implant and graft (ICD-10) Family History Father Family history of COPD (chronic obstructive pulmonary disease) Family history of CHF (congestive heart failure) Mother Family history of diabetes mellitus Social History Within the past year, how often did you have a drink containing alcohol: monthly or less Within the past year, how many standard drinks containing alcohol did you have on a typical day: 1 or 2 Within the past year, how often did you have six or more drinks on one occasion: never Total score: 0 Score interpretation: A score less than 4 is consistent with normal alcohol con sumption. 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 Known occupational exposures/hazards: Yes Known occupational exposures/hazards details: dust Highest level of school completed/degree received: 12th grade, no diploma Are you now , , , , never or living with a partner: In a typical week, how many times do you talk on the telephone with family, friends, or neighbors: 3 or more times per week How often do you get together with friends or relatives: 3 or more times per week How often do you attend protestant or yarsani services: never Do you belong to any clubs or organizations such as protestant groups unions, fraternal or athletic groups, or school groups: no Total score: 1 Score interpretation: A score of less than or equal to 1 indicates the most socially isolated. Little interest or pleasure in doing things: several days Feeling down, depressed, or hopeless: several days Feel stressed/tense/nervous/anxious/difficulty sleeping: not at all Due to disability, difficulty making decisions: No Meds Home Medications and Allergies Home Medications ?Medication ?Instructions ?Recorded ?Confirmed ?Type atorvastatin 40 mg tablet 20 mg PO QPM 12/22/22 08/05/23 History baclofen 5 mg tablet 5 mg PO BID PRN muscle spasm 12/22/22 05/27/24 History fluoxetine 20 mg capsule 40 mg PO DAILY 12/22/22 05/27/24 History folic acid 1 mg tablet 1 mg PO DAILY 12/22/22 05/27/24 History ugfpib-vyfauaph-vffymnq 2 cap PO TID 12/22/22 05/27/24 History 24,000-76,000-120,000 unit capsule,delayed rel (Creon) metoclopramide HCl 10 mg tablet 10 mg PO TID 12/22/22 05/27/24 History metoprolol succinate 25 mg capsule 25 mg PO DAILY 12/22/22 08/05/23 History sprinkle, ext. release 24 hr sitagliptin phosphate 50 1 tab PO BID 12/22/22 05/27/24 History mg-metformin 1,000 mg tablet (Janumet) baclofen 10 mg tablet 5 mg PO TID PRN muscle spasm 01/19/23 05/27/24 History mirtazapine 15 mg tablet 15 mg PO .QHS PRN Not Specified 01/19/23 05/27/24 History alprazolam 0.25 mg tablet 0.25 mg PO TID PRN anxiety 5 days 07/19/23 08/05/23 Rx #15 tabs cefdinir 300 mg capsule 300 mg PO BID 7 days #14 caps 07/19/23 Rx metronidazole 500 mg tablet 500 mg PO QID 7 days #28 tabs 07/19/23 Rx insulin lispro 100 unit/mL 1 sliding scale dose subcut 08/05/23 08/05/23 History subcutaneous solution USEASDIRECTD apixaban 2.5 mg tablet (Eliquis) 2.5 mg PO BID 05/27/24 05/27/24 History atorvastatin 20 mg tablet 20 mg PO DAILY 05/27/24 05/27/24 History buspirone 10 mg tablet 10 mg PO BID 05/27/24 05/27/24 History docusate sodium 100 mg capsule 100 mg PO DAILY 05/27/24 05/27/24 History omeprazole 20 mg capsule,delayed 20 mg PO DAILY 05/27/24 05/27/24 History release ropinirole 1 mg tablet 1 mg PO DAILY 05/27/24 05/27/24 History Allergies Allergy/AdvReac Type Severity Reaction Status Date / Time No Known Drug Allergies Allergy Verified 07/16/23 00:25 Exam Constitutional Documenting provider has reviewed patient's vital signs: yes Common normals: no apparent distress, oriented x3 and alert General appearance: cooperative, disheveled, ill appearing and frail appearing HENMT Common normals: normocephalic, hearing grossly normal bilaterally and moist oral mucous membranes Head and scalp: normocephalic Eye Common normals: PERRL Pupil: PERRL Neck & C-Spine Common normals: full ROM General: normal visual inspection Chest Common normals: inspection of chest normal Respiratory Common normals: normal respiratory effort, no retractions and no use of accessory muscles Back & Pelvis Lumbar spine/lower back: ROM limited, pain with ROM and straight leg raise negative bilaterally Extremity Common normals: normal to inspection Neuro Common normals: oriented x3, CN's II-XII intact bilaterally, moves all e xtremities, no focal motor deficits, no sensory deficits noted and deep tendon reflexes 2+ bilaterally Sensorium/orientation: alert Motor exam: strength abnormal (generalized weakness) Psych Common normals: mental status grossly normal, thought process normal, cooperative, affect normal, speech normal and activity/motor behavior normal Speech: normal speech Thought process: normal thought process Results Additional Findings Additional findings: If on a controlled substance or opioids, I have checked an [place] report on this patient and there are no aberrancies noted in the prescribing history.??If on a controlled substance or opioid a drug screen was completed and reviewed within the last year, and if there has not been a drug screen completed we ordered one today to monitor higher risk, state monitored pain medication use. As part of providing excellent, safe, comprehensive care, the following was completed at our patient's visit: 1. A medication reconciliation and review to ensure accurate knowledge of current/active medications, including asking our patients to inform us about any [id number] medications or herbal remedies/nutritional suppl ements/alternative remedies. 2. A review to specifically ensure our patients have had annual screening for screening for depression, screening for tobacco use, and screening for unhealthy alcohol use. For concerning screenings had a discussion with the patient, provided patient education, and recommended follow-up with primary care provider when appropriate. If patient noted with a risk of falling, they received education on strength, gait, and balance training to prevent future risk of falling. Assessment and Plan Assessment and Plan (1) Lumbar spondylosis: (2) Low back pain: (3) Myalgia: Plan continue baclofen 10mg TID PRN continue PRN tylenol start transdermal therapeutics cream 8a TID PRN, handout provided f/u 6 months, sooner if needed
== END 2024-06-16 13:43 | disposition home or self-care (01) ==
PROVIDERS: PCP Family Medicine; Visit Provider Nurse Practitioner
DX: M47.816 Spondylosis without myelopathy or radiculopathy, lumbar region (principal); M54.50 Low back pain, unspecified; M79.18 Myalgia, other site
CPT/HCPCS: G0463

== ENCOUNTER 2024-07-23 11:58 | Outpatient (OUT) | payer MEDICARE, SELFPAY ==
--- OUTSIDE RECORDS SUMMARY | 2024-07-23 12:07 | XMS_ITS | CCD ---
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, Rola Unavailable David Caputo MD Primary Care Provider Nate Hanson Unavailable Aamir Segura DO Unavailable Henry 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LUMBER TAILER, Rola Unavailable David Caputo MD Primary Care Provider David Caputo Unavailable Aamir Segura DO Unavailable David Caputo MD Primary Care Provider David Caputo MD Primary Care Provider Aamir Segura DO Unavailable Henry 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LUMBER TAILER, Rola Unavailable David Caputo MD Primary Care Provider DR DAVID CAPUTO Admitting Unavailable HARSHAL, DR DAVID Meza Attending Unavailable DR DAVID CAPUTO Consulting Unavailable DR DAVID CAPUTO Primary Care Unavailable DR IRVING ABREU Admitting Unavailabl e CAPUTO, DR DAVID Meza [...] CAPUTO, DR DAVID Meza Primary Care Unavailable GRECHJOHN, SAIMA BHAGAT Consulting Unavailable Nefcy, Mar Consulting Unavailable ASHLY ., DENISE Consulting Unavailable PAGE, FER Diaz Consulting Unavailable CAPUTO, DR DAVID Meza Admitting Unavailable CAPUTO, DR DAVID Meza Attending Unavailable CAPUTO, DR DAVID Meza Consulting Unavailable CAPUTO, DR DAVID Meza Primary Care Unavailable CAPUTO, DR DAVID Meza Admitting Unavailable CAPUTO, DR DAVID Meza Attending Unavailable CAPUTO, DR DAVID Meza Consulting Unavailable CAPUTO, DR DAVDI Meza Primary Care Unavailable David Caputo Unavailable Brady, Dr. Irving Knight Referring Unava ilable Brady, Dr. Irving Knight Attending Unava ilkinsey Caputo, Dr. David Rodriguez Primary Care Unav ailkinsey Caputo, Dr. David Rodriguez Primary Care Unav ailable Brady, Dr. Irving Knight Referring Unava ilable Brady, Dr. Irving Knight Attending Unava ilMD David Hillman Primary Care Provider MD Adriane Espitia Attending Provider Dr. Adriane Espitia Unavailable Unavailable David Caputo MD Primary Care Provider DO Rick Zapata Attending Provider David Caputo Primary Care Unavailable Adriane Espitia Admitting Unavailable Adriane Espitia Attending Unavailable Adriane Espitia Admitting Unavailable Adriane Espitia Attending Unavailable David Caputo Primary Care Unavailable Rick Zapata Admitting Unavailable Rick Zapata Attending Unavailable DO Rick Zapata Attending Provider David Caputo MD Primary Care Provider David Caputo MD Primary Care Provider Adamowicz DO, Aamir J Unavailable [phone] ALI, GOOD LINDSEY Referring Unavailable NAWRAS, ALI Referring Unavailable NAWRAS, ALI Attending Unavailable ALI, GOOD LINDSEY Referring Unavailable STEENHOFF, AAMIR Referring Unavailable HORANI, JUSTIN Attending Unavailable HORANI, JUSTIN Consulting Unavailable JUSTIN, GOOD Admitting Unavailable KATKO JOYA Referring Unavailable HORANI, JUSTIN Attending Unavailable HORANI, JUSTIN Consulting Unavailable HORANI, JUSTIN Admitting Unavailable STEENHOFF, AAMIR Referring Unavailable STEENHOFF, AAMIR Referring Unavailable STEENHOFF, AAMIR Referring Unavailable NAWRAS, ALI Attending Unavailable NAWRAS, ALI Referring Unavailable Adamowicz DO, Aamir J Unavailable Zahra May MD Unavailable [phone] ABHYANKAR, ZAHRA Referring Unavailable CAPUTO, DAVID E Primary Care Unavailable ABHYANKAR, ZAHRA Referring Unavailable CAPUTO, DAVID E Primary Care Unavailable ABHYANKAR, ZAHRA Attending Unavailable CAPUTO, DAVID E Primary Care Unavailable ABHYANKAR, ZAHRA Referring Unavailable CAPUTO, DAVID E Primary Care Unavailable ABHYANKAR, ZAHRA Referring Unavailable ABHYANKAR, ZAHRA Referring Unavailable ABHYANKAR, ZAHRA Attending Unavailable CAPUTO, DVAID E Primary Care Unavailable ABHYANKAR, ZAHRA Referring [...] Unavailable CAPUTO, DAVID E Primary Care Unavailable JOSE FLANAGAN Referring Unavailable CAPUTO, DAVID E Primary Care Unavailable ABHYANKAR, ZAHRA Referring Unavailable ABHYANKAR, ZAHRA Attending Unavailable ABHYANKAR, ZAHRA Referring Unavailable CAPUTO, DAVID E Primary Care Unavailable ABHYANKAR, ZAHRA Attending Unavailable ABHYANKAR, ZAHRA Referring Unavailable CAPUTO, DAVID E Primary Care Unavailable ABHYANKAR, ZAHRA Referring Unavailable CAPUTO, DAVID E Primary Care Unavailable ABHYANKAR, ZAHRA Referring Unavailable CAPUTO, DAVID E Primary Care Unavailable ABHYANKAR, ZAHRA Referring Unavailable CAPUTO, DAVID E Primary Care Unavailable CAPUTO, DAVID E Primary Care Unavailable ABHYANKAR, ZAHRA Referring Unavailable ABHYANKAR, ZAHRA Referring Unavailable CAPUTO, DAVID E Primary Care Unavailable ABHYANKAR, ZAHRA Attending Unavailable CAPUTO, DAVID E Primary Care Unavailable ABHYANKAR, ZAHRA Referring Unavailable IRVING ABREU Attending Unavailable CAPUTO, DAVID E Primary Care Unavailable Allergies Allergy Classification Reported Allergen(s) Allergy Type Date of Onset Reaction(s) Facility (9 sources) Angiotensin Converting Enzyme (Ophelia) Inhibitors; Translations: [OPHELIA Inhibitors] Allergy to drug (finding) 4 [facility] 3 Repository (1 source) patient allergy list reviewed by nurse or physicia Propensity to adverse reactions 8 Comment:Done [employer] Other (1 source) Allergies Reconciled Propensity to adverse reactions 1 Unknown [employer] Other (1 source) Angiotensin-con verting enzyme inhibitor agent Drug Allergy 4 Unknown [facility] Work Phone: Medications Current Medications Medication [...] mout h every 6 hours as needed. ALPRAZolam 0.25 mg oral tablet (20 sources) Benzodiazepine Start: 03-17-2018 End: 05-06-2024 ALPRAZolam (XANAX) 0.25 mg tablet Indications: Cancer of ampulla of Vater (HCC) , Duodenal obstruction , Abnormal weight loss Take 0.25 mg by mouth as needed. 03/17/2018 Active Start: 03-17-2018 End: 03-28-2023 ALPRAZolam (XANAX) 0.25 mg t ablet Indications: Cancer of ampulla of Vater (HCC) , Duodenal obstruction , Abnormal weight loss Take 0.25 mg by mouth as needed. 0 03/17/2018 Active ALPRAZolam Activ e Comment on above: Take 0.25 mg by mout h as needed. amylase [id number] unt / lipase 00356 unt / protease 61068 unt delayed release oral capsule (20 sources) Start: 09-08-2023 take 2 capsules by mouth three times daily at mealtime kakcbr-zmkapvbv-iq ylase (ZENPEP) 25,000-79,000- 105,000 unit delayed release capsule Take 2 capsules by mouth three times a day with meals. 540 capsule 3 09/08/2023 Active Start: 03-04-2019 End: 08-31-2023 take 2 capsules by mouth three times daily at mealtime dysbwz-otrxgbvf-oczyqby (CREON 24) 24,000-76,000 -120,000 unit delayed release capsule Indications: Iron deficiency anemia, unspecified iron deficiency anemia type , Duodenal obstruction Take 2 capsules by mouth three times a day with meals. 540 capsule 1 09/01/2023 Active Comment on above: Take 2 capsules [...] take 1 tablet by mouth twice daily ELIQUIS 2.5 mg tab tab(s) Take 2.5 mg by mouth twice daily. 9 12/13/2018 Active Eliquis Active Comment on above: Take 2.5 mg by mouth twice daily. atorvastatin 20 mg oral tablet (20 sources) HMG-CoA Reductase Inhibitor Start: 4 End: 4 take 1 tablet by mouth once daily [...] Start: 08-25-2023 take 1 tablet by tripp twice daily Baclofen 10 mg tablet Active [...] tablet Active 10 MG PO Twice daily 60 May 06, 2024 12:00am Cholecalciferol (2 sources) Vitamin D Start: 01-28-2023 take 1 tablet by mouth once daily Cholecalciferol Oral Tablet 250 MCG (79134 UT) 1 tablet Tablet Oral Give 1 tablet by mouth every day shift related to 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) 01/28/2023 7:00:00 take 1 capsule by mouth once arjun ly Vitamin D3 1.25 MG (53070 UT) Oral Capsule TAKE 1 CAPSULE Daily [...] meals. Creon Oral Capsule Delayed Release Particles [id number] UNIT (2 sources) Start: 2022 take 64390-78893 [IU] by mouth at mealtime Creon Oral Capsule Delayed Release Particles [id number] UNIT 2 capsule Capsule Delayed Release Particles Oral Give 2 capsule by mouth with meals related to GASTRO-ESOPHAGEAL REFLUX DISEASE WITHOUT ESOPHAGITIS (K21.9);[facility] 02/08/2023 12:00:00 Start: 01-23-2023 End: 02-08-2023 take 53977-60290 [IU] by mouth at mealtime Creon Oral Capsule Delayed Release Particles [id number] UNIT 2 capsule Capsule Delayed Release Particles Oral Give 2 capsule by mouth with meals related to GASTRO-ESOPHAGEAL REFLUX DISEASE WITHOUT ESOPHAGITIS (K21.9);[facility] 01/23/2023 17:00:00 02/08/2023 8:05:00 Aborted docusate sodium 100 mg oral capsule (5 sources) Start: 09-07-2023 take 1 capsule by mouth once daily Docusate Sodium (Colace) 100 mg capsule Active 100 MG PO Daily September 06, 2023 11:00pm empagliflozin 25 mg oral tablet (20 sources) Sodium-Glucose Cotransporter 2 Inhibitor Start: 12-27-2019 End: 08-25-2023 JARDIANCE 25 mg tablet 12/27/2019 Active JARDIANCE Not-Ta remy enteric contrast (will be provided with radiology test) (20 sources) Start: 03-10-[address] (will [...] Start: 01-24-2023 take 1 capsule by mo [facility] once daily FLUOXETINE HCL 20 MG CAPSULE{100 EA} 1 capsule Capsule Oral GIVE 1 CAPSULE BY MOUTH ONCE DAILY (FORMULARY EQUIVALENT FOR TABLET) 01/24/2023 7:00:00 Start: 11-13-2022 take 1 capsule by [facility] every twenty-four hours FLUoxetine HCl 40 MG 1 capsule Orally Once a day for 30 days October, Active Start: 08-13-2022 End: 10-29-2023 take 1 capsule by mouth once daily FLUoxetine HCl 20 MG 1 capsule Orally Once a day for 90 days Jul, Active Start: 08-13-2022 take 1 capsule by [facility] every twenty-four hours FLUoxetine HCl 20 MG [...] 3:24pm Start: 03-17-2018 take 1 capsule by [facility] twice daily FLUoxetine HCl (PROZAC) 40 mg [...] Comment on above: Take 1 tablet by [facility] once daily. glipiZIDE 5 mg oral tablet (20 sources) Sulfonylurea take 1 tablet by mouth twice daily before mealtime glipiZIDE (GLUCOTROL) 5 mg tablet Take 5 mg by mouth twice daily before meals. Active Comment on above: Take 5 mg by mouth t wice daily before meals. iv contrast (will be provided with radiology test) (20 sources) Start: 03-10-20 iv contrast (will be [...] 12:00am March 04, 2019 9:43pm peg 3350-sod sulf,mzuf-mcm-etm 178.7-7.3-0.5 gram recon soln (1 source) Start: 07-17-2023 End: 07-18-2023 peg 3350-sod sulf,ckmd-zwg-dvw 178.7-7.3-0.5 gram recon soln Take 1 kit [...] 17, 2017 12:00am August 18, 2017 12:02am aspirin 81 mg oral tablet (7 sources) Platelet Aggregation Inhibitor, Nonsteroidal Anti-inflammator y Drug Start: 08-07-2017 End: 03-04-2019 take 2 tablets by mouth once daily [...] 07, 2017 12:00am March 04, 2019 9:43pm gemcitabine (14 sources) Nucleoside Metabolic Inhibitor Gemcitabine HCl Not-Taking lisinopril 2.5 mg oral tablet (7 sources) Angiotensin Converting Enzyme Inhibitor Start: 08-07-2017 End: 03-04-2019 take 1 tablet by mouth once daily in the morning Lisinopril 2.5 mg Tablet Discontinued 2.5 MG PO Every morning August 07, 2017 12:00am March 04, 2019 9:43pm metFORMIN hydrochloride 1000 mg oral tablet (20 sources) Biguanide Start: 08-07-2017 End: 08-25-2023 take 1 tablet by mouth twice daily [...] take 1 tablet by mouth once daily metoprolol succinate ER (TOPROL XL) 25 mg 24 hr tablet Indications: Cancer of ampulla of Vater (HCC) , Duodenal obstruction , Abnormal weight loss Take 25 mg by mouth once daily. 03/17/2018 Active Metoprolol Succi mario Active Comment on [...] 10:30am Start: 06-02-2018 take 1 capsule by [facility] once daily venlafaxine ER (EFFEXOR XR) 75 mg 24 hr capsule TAKE 1 CAPSULE BY MOUTH ONE TIME A DAY 0 06/02/2018 Active Comment on above: TAKE 1 CAPSULE BY [facility] ONE TIME A DAY vitamin b12 1 mg/ml injectable solution (8 sources) Vitamin B12 Start: 07-15-2024 End: 07-15-2024 inject 1 dose by intramuscular injection once 1,000 mcg, INTRAMUSCULAR, ONCE, 1 dose, On Thu07/15/24 at 1430 Start: 04-28-2024 End: 04-28-2024 inject 1 dose [...] disease (20 sources) Atherosclerotic heart disease of [place] coronary artery without angina pectoris; Translations: [Ischemic [...] Phys. EHR Cmte Deficiency and other anemia (3 sources) Deficiency and other anemia Onset: 3 Delirium, [...] not stated as uncontrolled] Onset: 8 Chronic Diseases of white blood cells (1 source) Leukopenia; Translations: [Decreased white blood cell count, unspecified] 07-15-2024 Chronic Disorders of lipid metabolism (20 sources) Hyperlipidemia; Translations: [Other and unspecified hyperlipidemia] Onset: 8 10-29-2023 Chronic Esophageal disorders (1 source) Esophageal disorders Onset: 8 Essential hypertension (20 sources) Essential hypertension; Translations: [Unspecified essential hypertension] Onset: 2 Chronic Essential hypertension (1 source) Essential hypertension Onset: 8 Gastritis and duodenitis (3 sources) Gastrointestinal hemorrhage; Translations: [Duodenitis with bleeding] Onset: 5 06-16-2024 Episodic Gastroduodenal ulcer (except hemorrhage) (20 sources) Ulcer of duodenum; Translations: [Duodenal ulcer, unspecified as acute or chronic, without hemorrhage or perforation] Onset: 8 Chronic Gastrointestinal hemorrhage (4 sources) Rectal hemorrhage; Translations: [Hemorrhage of anus and rectum] Onset: 4 07-17-2023 Episodic Malaise and fatigue (20 sources) [...] 2 10-29-2023 Chronic Other aftercare (1 source) detention (current) use of anticoagulants; Translations: [OBSTETRICS NURSE PRACTITIONER CURRNT USE ANTICOAGULANTS] Onset: 3 Episodic Other aftercare (1 source) Other halfway (current) drug therapy; Translations: [OTH OBSTETRICS NURSE PRACTITIONER CURRENT DRUG THERAPY] Onset: 3 Episodic Other [...] Chronic Other nutritional; endocrine; and metabolic disorders (4 sources) Decrease in appetite; Translations: [Anorexia] 08-31-2023 Episodic Other nutritional; endocrine; and metabolic disorders (2 sources) Anorexia; Translations: [Anorexia] 08-27-2023 Episodic Other screening for suspected conditions (not mental disorders or infectious disease) (1 source) Imaging result abnormal; Translations: [Abnormal findings on diagnostic imaging of other specified body structures] 07-15-2024 Chronic Other screening for suspected conditions (not mental [...] [Body mass index (BMI) 20.0-20.9, adult] Episodic Spondylosis; intervertebral disc disorders; other back [...] Unclassified (1 source) Athscl heart disease of [place] coronary artery w/o ang pctrs / I25.10(ICD-9) [...] other gastrointestinal tract] Onset: 4 07-06-2023 Episodic Coronary atherosclerosis and other heart disease (17 sources) Presence of coronary angioplasty implant and graft; Translations: [Post percutaneous transluminal coronary angioplasty] Onset: 8 Episodic Deficiency and other anemia (2 sources) [...] Walking disability Onset: 8 Resolved: 3 Chronic Other nutritional; endocrine; and metabolic disorders (20 sources) Abnormal weight loss; Translations: [Abnormal weight loss] Onset: 8 03-26-2018 Episodic Residual codes; unclassified (2 sources) Body mass index (BMI) 21.0-21.9, adult; Translations: [Body mass index (BMI) 21.0-21.9, adult] Onset: 4 Episodic Screening and history of mental health and substance abuse codes (10 sources) Ex-smoker; Translations: [Personal history of tobacco use] Onset: 4 10-29-2023 Episodic Unclassified (1 source) Encounter for preprocedural cardiovascular examination; Translations: [Encounter for preprocedural cardiovascular examination] Onset: 8 Unclassified (1 source) LOW BACK PAIN, UNSPECIFIED; Translations: [LOW BACK PAIN, UNSPECIFIED] Onset: 2 Unclassified (1 source) Lumbar pain M54.50 Unclassified (19 sources) Onset: 8 Resolved: 3 05-02-2024 Unclassified (1 source) Lumbar pain; Translations: [Lumbar pain] Results Test Name Value Interpretation Reference Range [facility] Nurse Visit (HEMASA) ROCIO JACKSON ([id number]) 1955 M Date Time Provider Department 07/15/24 2:15 PM MELANI NURSE ZELALEM HART CORINE During your visit today, we recorded the following information about you: Livier Seay MA 07/15/2024 2:39 PM Signed Patient Identification confirmed: yes. Injection given and documented on AUG per provider order. 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 - xuzggz-psoardqk-rephgvj (CREON 24) 24,000-76,000 -120,000 unit delayed release [...] the tongue every 5 minutes as needed. Meds Comments as of 06/16/2024: Patient's son states that Rocio has started a new medication-but unsure of the name. 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] 09/15/2017 Adenocarcinoma (HCC) [C80.1] 11/06/2017 Abnormal weight loss [R63.4] 03/26/2018 Anemia due to vitamin B12 deficiency [D51.9] 04/08/2018 Macrocytosis [D75.89] 02/13/2022 Iron deficiency anemia secondary to inadequate *09/10/2023 Prescriptions ordered this encounter Disp Refills Start End CYANOCOBALAMIN (VIT B-12) 1,000 MCG/* 07/15/2024 07/15/2024 Route: INTRAMUSCULA Encounter Status:Closed by LIVIER SEAY on 07/15/24 [facility]OVSPon 07-15-2024 CNOVSP Visit (SP) Office (H EMASA) ROCIO JACKSON ([id number]) 1955 M Date Time Provider Department 07/15/24 1:40 PM ZAHRA MAY During your visit today, we recorded the following information about you: Temperature Pulse Respiration Blood pressure 97.3 degrees 85/minute 18/minute 94/63 Zahra May MD 07/16/2024 8:06 AM Signed NAME: Rocio Jackson CLINIC NO.: [id number] DATE OF SERVICE: July 15, 2024 (Iftikhar) Some elements in this clinic note that are critical to medical decision making have been carefully reviewed and included from a prior clinic note dated: June 16, 2024 (Iftikhar) Referring Provider: Dr. Vanessa Bejarano Additional Clinicians involved in Rocio Jackson's care: Dr. David Caputo CC: Follow up on anemia. GI Bleed, Ampullary cancer. Diagnosis: 1. T3N1 Adenocarcioma of the ampulla [...] of recurrence. PLAN: B12 shot today and q 4 weeks Continue folic acid 1 mg daily as Rx'd Referral to general surgery at [facility] in 4 weeks Labs same day Continue following with Dr. Caputo for DMII management - HPI: CASE HISTORY: Reverse Chronological Order 07/01/2024 - PET/CT: ABDOMEN/PELVIS: FDG avid thickened and dilated small segment of the small bowel in the right lower quadrant, possible lymphoma. No FDG avid adenopathy HEAD/NECK, CHEST, AND MUSCULOSKELETAL: No FDG avid disease. 06/09/2024 - CT CAP: Chest: Development of multifocal groundglass opacities in the right lung likely infectious/inflammatory. Follow-up is recommended to ensure resolution. A/P: Persistent irregular wall thickening involving a segment of small bowel in the right lower quadrant. Lymphoma is of consideration. No metastatic disease in the abdomen or pelvis. 05/29/2024 - EGD/Colonoscopy: A. Terminal ileum, biopsy: Small bowel mucosa and Peyer's patch lymphoid tissue with no significant histologic abnormality 05/27/2024-05/31/2024 - Admitted at [facility], transferred to [facility] with lower GI bleed, hypotension, tachycardia - required 1 unit PRBC 03/03/2024 - CT CAP: Chest: No CT [...] process.. 03/2022 - IV iron 02/06/2022 - C (more content not included)... Normal [facility] CBC W Auto Differential pane l (Bld)on 07-01-2024 Basophils (Bld) [#/Vol] [facility] Basophils/100 WBC (Bld) 0.4 % [facility] Differential cell count method Nom (Bld) Auto [facility] Eosinophils (Bld) [#/Vol] 0.17 10*3/uL [facility] Eosinophils/100 WBC (Bld) 6.1 % [facility] Erythrocyte distribution width (RBC) [Ratio] 16.0 % High 11.5 - 15.0 % [facility] Hematocrit (Bld) [Volume fraction] 33.3 % Low 39.0 - 51.0 % [facility] Hemoglobin (Bld) [Mass/Vol] 11.1 g/dL Low 13.0 - 17.0 g/dL [facility] Immature granulocytes (Bld) [#/Vol] [facility] Immature granulocytes/100 WBC (Bld) 0.4 % [facility] Interpretation and review of laboratory results Abnormal [facility] Lymphocytes (Bld) [#/Vol] 0.69 10*3/uL Low [facility] Lymphocytes/100 WBC (Bld) 24.7 % [facility] MCH (RBC) [Entitic mass] 33.6 pg 26.0 - 34.0 pg [facility] MCHC (RBC) [Mass/Vol] 33.3 g/dL 30.5 - 36.0 g/dL [facility] MCV (RBC) [Entitic vol] 100.9 fL High 80.0 - 100.0 fL [facility] Monocytes (Bld) [#/Vol] 0.26 10*3/uL [facility] Monocytes/100 WBC (Bld) 9.3 % [facility] Neutrophils (Bld) [#/Vol] 1.65 10*3/uL [facility] Neutrophils/100 WBC (Bld) 59.1 % [facility] Nucleated RBC (Bld) [#/Vol] [facility] Nucleated RBC/100 WBC (Bld) [Ratio] 0.0 % /100 WBC [facility] Platelet mean volume (Bld) [Entitic vol] 8.9 fL Low 9.0 - 12.7 fL [facility] Platelets (Bld) [#/Vol] 227 10*3/uL [facility] RBC (Bld) [#/Vol] 3.30 10*6/uL Low 4.20 - 6.00 m/uL [facility] WBC (Bld) [#/Vol] 2.79 10*3/uL Low [facility] Basophils (Bld) [#/Vol] 10*3/uL Normal <0.11 [facility] Comment on above: Order Comment: Speci men Type: BLOOD SPECIMENOrdering Facility: [facility] Address: [address] [place] [address] Performed By: #### 5 7021-8 ####[facility] LABCLIA [id number] [place] [address] Basophils/100 WBC (Bld) 0.4 % Normal [facility] Comment on above: Order Comment: Speci men Type: BLOOD SPECIMENOrdering Facility: [facility] Address: [address] [place] [address] Performed By: #### 5 7021-8 ####[facility] LABCLIA [id number] [place] [address] Differential cell count method Nom (Bld) Auto Normal [facility] Comment on above: Order Comment: Speci men Type: BLOOD SPECIMENOrdering Facility: [facility] Address: [address] [place] [address] Performed By: #### 5 7021-8 ####[facility] LABCLIA [id number] [place] [address] Eosinophils (Bld) [#/Vol] 0.17 10*3/uL Normal <0.46 [facility] Comment on above: Order Comment: Speci men Type: BLOOD SPECIMENOrdering Facility: [facility] Address: [address] [place] [address] Performed By: #### 5 7021-8 ####[facility] LABCLIA [id number] [place] [address] Eosinophils/100 WBC (Bld) 6.1 % Normal [facility] Comment on above: Order Comment: Speci men Type: BLOOD SPECIMENOrdering Facility: [facility] Address: [address] [place] [address] Performed By: #### 5 7021-8 ####[facility] LABCLIA [id number] [place] [address] Erythrocyte distribution width (RBC) [Ratio] 16.0 % High 11.5-15.0 [facility] Comment on above: Order Comment: Speci men Type: BLOOD SPECIMENOrdering Facility: [facility] Address: [address] [place] [address] Performed By: #### 5 7021-8 ####[facility] LABCLIA [id number] [place] [address] Hematocrit (Bld) [Volume fraction] 33.3 % Low 39.0-51.0 [facility] Comment on above: Order Comment: Speci men Type: BLOOD SPECIMENOrdering Facility: [facility] Address: [address] [place] [address] Performed By: #### 5 7021-8 ####[facility] LABCLIA [id number] [place] [address] Hemoglobin (Bld) [Mass/Vol] 11.1 g/dL Low 13.0-17.0 [facility] Comment on above: Order Comment: Speci men Type: BLOOD SPECIMENOrdering Facility: [facility] Address: [address] [place] [address] Performed By: #### 5 7021-8 ####[facility] LABCLIA [id number] [place] [address] Immature granulocytes (Bld) [#/Vol] 10*3/uL Normal <0.10 [facility] Comment on above: Order Comment: Speci men Type: BLOOD SPECIMENOrdering Facility: [facility] Address: [address] [place] [address] Performed By: #### 5 7021-8 ####[facility] LABCLIA [id number] [place] [address] Immature granulocytes/100 WBC (Bld) 0.4 % Normal [facility] Comment on above: Order Comment: Speci men Type: BLOOD SPECIMENOrdering Facility: [facility] Address: [address] [place] [address] Performed By: #### 5 7021-8 ####[facility] LABCLIA [id number] [place] [address] Lymphocytes (Bld) [#/Vol] 0.69 10*3/uL Low 1.00-4.00 [facility] Comment on above: Order Comment: Speci men Type: BLOOD SPECIMENOrdering Facility: [facility] Address: [address] [place] [address] Performed By: #### 5 7021-8 ####[facility] LABCLIA [id number] [place] [address] Lymphocytes/100 WBC (Bld) 24.7 % Normal [facility] Comment on above: Order Comment: Speci men Type: BLOOD SPECIMENOrdering Facility: [facility] Address: [address] [place] [address] Performed By: #### 5 7021-8 ####[facility] LABCLIA [id number] [place] [address] MCH (RBC) [Entitic mass] 33.6 pg Normal 26.0-34.0 [facility] Comment on above: Order Comment: Speci men Type: BLOOD SPECIMENOrdering Facility: [facility] Address: [address] [place] [address] Performed By: #### 5 7021-8 ####[facility] LABCLIA [id number] [place] [address] MCHC (RBC) [Mass/Vol] 33.3 g/dL Normal 30.5-36.0 [facility] Comment on above: Order Comment: Speci men Type: BLOOD SPECIMENOrdering Facility: [facility] Address: [address] [place] [address] Performed By: #### 5 7021-8 ####[facility] LABCLIA [id number] [place] [address] MCV (RBC) [Entitic vol] 100.9 fL High 80.0-100.0 [facility] Comment on above: Order Comment: Speci men Type: BLOOD SPECIMENOrdering Facility: [facility] Address: [address] [place] [address] Performed By: #### 5 7021-8 ####[facility] LABCLIA [id number] [place] [address] Monocytes (Bld) [#/Vol] 0.26 10*3/uL Normal <0.87 [facility] Comment on above: Order Comment: Speci men Type: BLOOD SPECIMENOrdering Facility: [facility] Address: [address] [place] [address] Performed By: #### 5 7021-8 ####[facility] LABCLIA [id number] [place] [address] Monocytes/100 WBC (Bld) 9.3 % Normal [facility] Comment on above: Order Comment: Speci men Type: BLOOD SPECIMENOrdering Facility: [facility] Address: [address] [place] [address] Performed By: #### 5 7021-8 ####[facility] LABCLIA [id number] [place] [address] Neutrophils (Bld) [#/Vol] 1.65 10*3/uL Normal 1.45-7.50 [facility] Comment on above: Order Comment: Speci men Type: BLOOD SPECIMENOrdering Facility: [facility] Address: [address] [place] [address] Performed By: #### 5 7021-8 ####[facility] LABCLIA [id number] [place] [address] Neutrophils/100 WBC (Bld) 59.1 % Normal [facility] Comment on above: Order Comment: Speci men Type: BLOOD SPECIMENOrdering Facility: [facility] Address: [address] [place] [address] Performed By: #### 5 7021-8 ####[facility] LABCLIA [id number] [place] [address] Nucleated RBC (Bld) [#/Vol] 10*3/uL Normal <0.01 [facility] Comment on above: Order Comment: Speci men Type: BLOOD SPECIMENOrdering Facility: [facility] Address: [address] [place] [address] Performed By: #### 5 7021-8 ####[facility] LABCLIA [id number] [place] [address] Nucleated RBC/100 WBC (Bld) [Ratio] 0.0 /100 WBC Normal [facility] Comment on above: Order Comment: Speci men Type: BLOOD SPECIMENOrdering Facility: [facility] Address: [address] [place] [address] Performed By: #### 5 7021-8 ####[facility] LABCLIA [id number] [place] [address] Platelet mean volume (Bld) [Entitic vol] 8.9 fL Low 9.0-12.7 [facility] Comment on above: Order Comment: Speci men Type: BLOOD SPECIMENOrdering Facility: [facility] Address: [address] [place] [address] Performed By: #### 5 7021-8 ####[facility] LABIA [id number] [place] [address] Platelets (Bld) [#/Vol] 227 10*3/uL Normal 150-400 [facility] Comment on above: Order Comment: Speci men Type: BLOOD SPECIMENOrdering Facility: [facility] Address: [address] [place] [address] Performed By: #### 5 7021-8 ####[facility] LABCLIA [id number] [place] [address] RBC (Bld) [#/Vol] 3.30 10*6/uL Low 4.20-6.00 [facility] Comment on above: Order Comment: Speci men Type: BLOOD SPECIMENOrdering Facility: [facility] Address: [address] [place] [address] Performed By: #### 5 7021-8 ####[facility] LABCLIA [id number] [place] [address] WBC (Bld) [#/Vol] 2.79 10*3/uL Low 3.70-11.00 [facility] Comment on above: Order Comment: Speci men Type: BLOOD SPECIMENOrdering Facility: [facility] Address: [address] [place] [address] Performed By: #### 5 7021-8 ####[facility] LABCLIA [id number] [place] [address] Comprehensive metabolic 2000 panelOrdered By: Olga Cornejo on 07-01-2024 Albumin [Mass/Vol] 2.7 g/dL Low 3.9 - 4.9 g/dL [facility] ALP [Catalytic activity/Vol] 104 U/L 38 - 113 U/L [facility] ALT [Catalytic activity/Vol] 10 U/L 10 - 54 U/L [facility] Anion gap [Moles/Vol] 7 mmol/L Low 8 - 15 mmol/L [facility] AST [Catalytic activity/Vol] 11 U/L Low 14 - 40 U/L [facility] Bilirubin [Mass/Vol] 0.3 mg/dL 0.2 - 1 .3 mg/dL [facility] Calcium [Mass/Vol] 8.4 mg/dL Low 8.5 - 10. 2 mg/dL [facility] Chloride [Moles/Vol] 103 mmol/L 98 - 10 7 mmol/L [facility] CO2 [Moles/Vol] 27 mmol/L 22 - 30 mmol/L [facility] Creatinine [Mass/Vol] 0.60 mg/dL Low 0.73 - 1.22 mg/dL [facility] GFR/1.73 sq M.predicted among non-blacks MDRD (S/P/Bld) [Vol rate/Area] 106 mL/min/{1.73_m2} - PINF [facility] Comment on above: Estimated Glomerular Filtration Rate [...] [Mass/Vol] 87 mg/dL 74 - 99 mg/dL [facility] Comment on above: The [place] Diab[employer] [place] Association (ADA) provides guidance for [...] Standards of Medical Care in Diabetes 2016, [place] [employer]. Diabetes Care. 2016.39(Suppl 1). Interpretation and review of laboratory results Abnormal [facility] Potassium [Moles/Vol] 4.4 mmol/L 3.7 - 5.1 mmol/L [facility] Protein [Mass/Vol] 5.1 g/dL Low 6.3 - 8.0 g/dL [facility] Sodium [Moles/Vol] 137 mmol/L 136 - 144 mmol/L [facility] Urea nitrogen [Mass/Vol] 31 mg/dL High 9 - 24 mg/dL [facility] Comprehensive metabolic 2000 panelon 07-01-2024 Albumin [Mass/Vol] 2.7 g/dL Low 3.9-4.9 [facility] Comment on above: Order Comment: Speci men Type: BLOOD SPECIMENOrdering Facility: [facility] Address: [address] [place] [address] Performed By: #### 2 4323-8 ####[facility] LABCLIA [id number] [place] [address] ALP [Catalytic activity/Vol] 104 U/L Normal 38-113 [facility] Comment on above: Order Comment: Speci men Type: BLOOD SPECIMENOrdering Facility: [facility] Address: [address] [place] [address] Performed By: #### 2 4323-8 ####[facility] LABCLIA [id number] [place] [address] ALT [Catalytic activity/Vol] 10 U/L Normal 10-54 [facility] Comment on above: Order Comment: Speci men Type: BLOOD SPECIMENOrdering Facility: [facility] Address: [address] [place] [address] Performed By: #### 2 4323-8 ####[facility] LABCLIA [id number] [place] [address] Anion gap [Moles/Vol] 7 mmol/L Low 8-15 [facility] Comment on above: Order Comment: Speci men Type: BLOOD SPECIMENOrdering Facility: [facility] Address: [address] [place] [address] Performed By: #### 2 4323-8 ####[facility] LABCLIA [id number] [place] [address] AST [Catalytic activity/Vol] 11 U/L Low 14-40 [facility] Comment on above: Order Comment: Speci men Type: BLOOD SPECIMENOrdering Facility: [facility] Address: [address] [place] [address] Performed By: #### 2 4323-8 ####[facility] LABCLIA [id number] [place] [address] Bilirubin [Mass/Vol] 0.3 mg/dL Normal 0.2-1.3 [facility] Comment on above: Order Comment: Speci men Type: BLOOD SPECIMENOrdering Facility: [facility] Address: [address] [place], [place] [address] Performed By: #### 2 4323-8 ####[facility] LABCLIA [id number] [place] [address] Calcium [Mass/Vol] 8.4 mg/dL Low 8.5-10.2 [facility] Comment on above: Order Comment: Speci men Type: BLOOD SPECIMENOrdering Facility: [facility] Address: [address] [place] [address] Performed By: #### 2 4323-8 ####[facility] LABCLIA [id number] [place] [address] Chloride [Moles/Vol] 103 mmol/L Normal 98-107 [facility] Comment on above: Order Comment: Speci men Type: BLOOD SPECIMENOrdering Facility: [facility] Address: [address] [place] [address] Performed By: #### 2 4323-8 ####[facility] LABCLIA [id number] [place] [address] CO2 [Moles/Vol] 27 mmol/L Normal 22-30 [facility] Comment on above: Order Comment: Speci men Type: BLOOD SPECIMENOrdering Facility: [facility] Address: [address] [place] [address] Performed By: #### 2 4323-8 ####[facility] LABCLIA [id number] [place] [address] Creatinine [Mass/Vol] 0.60 mg/dL Low 0.73-1.22 [facility] Comment on above: Order Comment: Speci men Type: BLOOD SPECIMENOrdering Facility: [facility] Address: [address] [place], [place] [address] Performed By: #### 2 4323-8 ####[facility] LABCLIA [id number] [place] [address] Creatinine and Glomerular filtration rate.predicted panel (S/P/Bld) 106 mL/min/1.73m??? Normal >=60 [facility] Comment on above: Order Comment: Frank real Type: BLOOD SPECIMENOrdering Facility: [facility] Address: [address] [place] [address] Result Comment: Megan mated Glomerular Filtration Rate [...] actual GFR. Performed By: #### 2 4323-8 ####[facility] LABCLIA [id number] [place] [address] Glucose [Mass/Vol] 87 mg/dL Normal 74-99 [facility] Comment on above: Order Comment: Frank real Type: BLOOD SPECIMENOrdering Facility: [facility] Address: [address] [place] [address] Result Comment: The [place] Diabetes Association (ADA) provides guidance for cutoff [...] Standards of Medical Care in Diabetes 2016, [place] [employer]. Diabetes Care. 2016.39(Suppl 1). Performed By: #### 2 4323-8 ####[facility] LABCLIA [id number] [place] [address] Potassium [Moles/Vol] 4.4 mmol/L Normal 3.7-5.1 [facility] Comment on above: Order Comment: Speci men Type: BLOOD SPECIMENOrdering Facility: [facility] Address: [address] [place], [place] [address] Performed By: #### 2 4323-8 ####[facility] LABCLIA [id number] [place] [address] Protein [Mass/Vol] 5.1 g/dL Low 6.3-8.0 [facility] Comment on above: Order Comment: Speci men Type: BLOOD SPECIMENOrdering Facility: [facility] Address: [address] [place] [address] Performed By: #### 2 4323-8 ####[facility] LABCLIA [id number] [place] [address] Sodium [Moles/Vol] 137 mmol/L Normal 136-144 [facility] Comment on above: Order Comment: Speci men Type: BLOOD SPECIMENOrdering Facility: [facility] Address: [address] [place] [address] Performed By: #### 2 4323-8 ####[facility] LABCLIA [id number] [place] [address] Urea nitrogen [Mass/Vol] 31 mg/dL High 9-24 [facility] Comment on above: Order Comment: Speci men Type: BLOOD SPECIMENOrdering Facility: [facility] Address: [address] [place], [place] [address] Performed By: #### 2 4323-8 ####[facility] LABCLIA [id number] [place] [address] Ferritin SerPl-ncon 2024 Ferritin [Mass/Vol] 633.0 ng/mL High 30.3-565.7 [facility] Comment on above: Order Comment: Speci men Type: BLOOD SPECIMENOrdering Facility: [facility] Address: [address] [place] [address] Performed By: #### 2 276-4, 2284-8, 66129-0, 2131-9 ####[facility] LABCLIA [id number] [place] [id number] [place] Folate SerPl-mCncon 07-01-19 25 Folate [Mass/Vol] ng/mL Normal >4.7 [facility] Comment on above: Order Comment: Speci men Type: BLOOD SPECIMENOrdering Facility: [facility] Address: [address] [place] [address] Result Comment: A re sult of > 20 ng/mL is not necessarily indicative of a pathologic or treatable condition: it reflects a limitation of the test methodology. Assay reference range: 4.8 to 24.2 ng/mL. Suitable for detection of folate deficiency. Reference: Folate III (Folate III) [package insert V 1.0 Danish]. [employer], [place], [place]: April 2015. Performed By: #### 2 276-4, 2284-8, 77054-9, 2131-9 ####[facility] LABCLIA [id number] [place] [id number] [place] GLUCOSE, BLOOD (POC)on 07-01 Glucose [Mass/Vol] 85 mg/dL 74 - 99 mg/dL [facility] Comment on above: Location:[facility], [address] [place] [address] Dr. [place], [place], [facility] The Accu-Chek Inform II glucose meter [...] blood gas instrument) in the above situations. [facility] Iron and Iron binding capaci ty panelon 07-01-2024 Iron [Mass/Vol] 36 ug/dL Low 41-186 [facility] Comment on above: Order Comment: Speci men Type: BLOOD SPECIMENOrdering Facility: [facility] Address: [address] [place] [address] Performed By: #### 2 276-4, 2284-8, 97434-2, 9 ####[facility] LABCLIA [id number] [address] [address] [place] Iron binding capacity [Mass/Vol] 145 ug/dL Low 232-386 [facility] Comment on above: Order Comment: Speci men Type: BLOOD SPECIMENOrdering Facility: [facility] Address: [address] [place] [address] Performed By: #### 2 276-4, 2284-8, 07649-6, 9 ####[facility] LABCLIA [id number] [address] [address] [place] Iron/TIBC [Molar ratio] 24.8 % Normal 15.0-57.0 [facility] Comment on above: Order Comment: Speci men Type: BLOOD SPECIMENOrdering Facility: [facility] Address: [address] [place] [address] Performed By: #### 2 276-4, 2284-8, 38006-3, 9 ####[facility] LABCLIA [id number] [address] [address] [place] NM PET/CT SKULL-THIGH SUBQon 07-01-2024 NM PET/CT SKULL-THIGH SUBQ * * *Final Report* * * DATE OF EXAM: Jul 01 2024 3:17PM NRN 0063 - NM PET/CT SKULL-THIGH SUBQ / PROCEDURE REASON: multiple diagnoses * * * * Physician Interpretation * * * * RESULT: EXAMINATION: BODY FDG PET-CT CLINICAL HISTORY: 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 TECHNIQUE: Radiopharmaceutical was administered intravenously followed by PET imaging from the eyes to thighs. Free breathing, low dose CT of the same body region was acquired without IV contrast for attenuation correction and anatomic localization. Unenhanced imaging is limited for the evaluation of some pathology and the acquired CT was not designed to produce diagnostic CT scan quality. Physiologic/non-pathologic uptake in some body regions could confound or obscure some pathology. * CT Dose-Length Product (DLP): 147 mGy*cm * CT Dose Reduction Employed: Yes * Blood glucose: 85 mg/dL * Injection site: Right Forearm-Antecubital * Injected activity: 5.7 mCi * Uptake Time: 46 minutes * Radiopharmaceutical: G84-Bqyrqjxhqxrauvrjpu (FDG) COMPARISON: FDG PET/CT 03/11/2023 CORRELATION: CT chest, abdomen pelvis of 06/09/2024 RESULT: REFERENCES: FDG uptake is used as a surrogate marker for glucose metabolism. All reported standardized uptake values represent maximum SUV (SUVmax) per body weight, unless otherwise specified. SUV reference values, as follows: * Blood Pool (Descending Aorta): SUVmax 1.7 * Background Liver: SUVmax 2.0; Localizer Images: No additional findings. HEAD AND NECK: Head: No radiotracer avid lesion or mass effect in the imaged intracranial compartment. Aerodigestive Tract: No radiotracer avid lesion. Lymph Nodes: No radiotracer avid lymphadenopathy. Neck Soft Tissues: No radiotracer avid thyroid nodule. CHEST: Lungs and Pleura: No radiotracer avid mass, nodule, or consolidation. No pleural effusion. Resolved right lung base groundglass opacities. Lymph Nodes: No radiotracer avid lymphadenopathy. Mediastinum: No radiotracer avid mass. Cardiovascular: Blood pool activity. No pericardial effusion. Chest Wall: No radiotracer avid soft tissue lesion. ABDOMEN AND PELVIS: Hepatobiliary: No radiotracer avid lesion. Pneumobilia related to hepaticojejunostomy. Status post cholecystectomy. Spleen: No radiotracer avid lesion. No splenomegaly. Pancreas: No radiotracer avid lesion. Status post Whipple procedure Adrenals: No radiotracer avid nodule. Urinary Tract: Physiologic radiotracer excretion in the renal collecting systems and urinary bladder. No hydronephrosis. GI Tract: Radiotracer avid thickened and dilated small segment of the small bowel in the right lower quadrant, 4.1 x 6.6 cm SUV 18.6. The radiotracer uptake in the remainder of the bowel is probably physiologic. Peritoneum: No radiotracer avid lesion. No ascites. Lymph Nodes: No radiotracer avid lymphadenopathy. Vasculature: Blood pool activity. Pelvic Organs: No radiotracer avid lesion. MUSCULOSKELETAL: Bones: No radiotracer avid lesion. Diffuse increased bone marrow uptake, likely reactive. Soft Tissues: No radiotracer avid lesion. IMPRESSION: HEAD/NECK: * No FDG avid disease. CHEST: * No FDG avid disease. ABDOMEN/PELVIS: * FDG avid thickened and dilated small segment of the small bowel in the right lower quadrant, possible lymphoma. * No FDG avid adenopathy MUSCULOSKELETAL: * No FDG avid disease. Transcribe Date/Time: Jul 05 2024 12:43P Dictated by: JOSTIN CARMICHAEL MD This examination was interpreted and the report reviewed and electronically signed by: JOSTIN CARMICHAEL MD on Jul 05 2024 2:27PM EST Thank you for allowing us to participate in the care of your patient. Should there be any questions regarding this interpretation, please call [phone]. If you are unable to reach us at the number above, please feel free to contact [facility] at [phone]. [id number] Normal [facility] Vit B12 SerPl-mCncon 025 Cobalamin (Vitamin B12) [Mass/Vol] 845 pg/mL Normal 232-1245 [facility] Comment on above: Order Comment: Speci men Type: BLOOD SPECIMENOrdering Facility: [facility] Address: [address] [place] [address] Performed By: #### 2 276-4, 2284-8, 86888-1, 2132-9 ####[facility] LABCLIA [id number] [place] [address] [place] CNOVSPon 06-16-2024 CNOVSP Visit (SP) Office (Johnathan MCKENZIE) ROCIO JACKSON ([id number]) 1955 M Date Time Provider Department 06/16/24 3:40 PM ZAHRA MAY During your visit today, we recorded the following information about you: Temperature Pulse Respiration Blood pressure 97.2 degrees 49/minute 16/minute 78/48 Height 1.708 m Lillian Tucker MA 06/16/2024 5:36 PM Signed Patient was recently hospitalized at [facility]. MELANI Bradley Vivek, MD 06/16/2024 5:36 PM Signed NAME: Rocio Jackson CLINIC NO.: [id number] DATE OF SERVICE: June 16, 2024 (Iftikhar) Some elements in this clinic note that are critical to medical decision making have been carefully reviewed and included from a prior clinic note dated: March 10, 2024 (Iftikhar) Referring Provider: Dr. Vanessa Bejarano Additional Clinicians involved in Rocio Jackson's care: Dr. David Caputo CC: Follow up on anemia. GI Bleed, Ampullary cancer. Diagnosis: 1. T3N1 Adenocarcioma of the ampulla [...] folate replacement. No evidence of recurrence. PLAN: Need EGD/Colonoscopy results from [facility] from April 2024 Need records of hospitalization as well - D/C summary etc. B12 shot on 04/01 and q 4 weeks Continue folic acid 1 mg daily as Rx'd PET/CT scans with labs repeated when approved. RTC 1 week after Continue following with Dr. Caputo for DMII management - HPI: CASE HISTORY: Reverse Chronological Order 06/09/2024 - CT CAP: Chest: Development of multifocal groundglass opacities in the right lung likely infectious/inflammatory. Follow-up is recommended to ensure resolution. A/P: Persistent irregular wall thickening involving a segment of small bowel in the right lower quadrant. Lymphoma is of consideration. No metastatic disease in the abdomen or pelvis. 05/27/2024-05/31/2024 - Admitted at [facility], transferred to [facility] with lower GI bleed, hypotension, tachycardia - required 1 unit PRBC 03/03/2024 - CT CAP: Chest: No CT [...] opacities in the right upper lobe most likel (more content not included)... Normal [facility] FERRITINon 06-10-2024 Ferritin [Mass/Vol] 477.0 ng/mL 30.3 - 565.7 ng/mL [facility] FOLATE, SERUMon 06-10-2024 Folate [Mass/Vol] 14.1 ng/mL 4.7 - PINF ng/mL [facility] Iron and Iron binding capaci ty panelon 06-10-2024 Interpretation and review of laboratory results Abnormal [facility] Iron [Mass/Vol] 19 ug/dL Low 41 - 186 ug/dL [facility] Iron binding capacity [Mass/Vol] 141 ug/dL Low 232 - 386 ug/dL [facility] Iron/TIBC [Molar ratio] 13.5 % Low 15.0 - 57.0 % [facility] No Panel Informationon 06-10 Interpretation and review of laboratory results Normal [facility] VITAMIN B12on 06-10-2024 Cobalamin (Vitamin B12) [Mass/Vol] 657 pg/mL 232 - 1245 pg/mL [facility] CT ABD/PEL W IVCONon 024 CT ABD/PEL W IVCON * * *Final Report* * * DATE OF EXAM: Jun 09 2024 2:47PM [facility] 0530 - CT ABD/PEL W IVCON / PROCEDURE REASON: multiple diagnoses * * * * Physician Interpretation * * * * RESULT: EXAMINATION: CT ABDOMEN AND PELVIS WITH IV CONTRAST PATIENT/TECHNOLOGIST PROVIDED HISTORY: small bladder cancer CLINICAL INFORMATION ( PROVIDED BY ORDERING CLINICIAN) : Cancer of ampulla of Vater (HCC) Iron deficiency anemia secondary to inadequate dietary iron intake Anemia due to vitamin B12 deficiency, unspecified B12 deficiency type TECHNIQUE: CT of the abdomen and pelvis was performed using standard technique, scanning from just above the dome of the diaphragm to the pubic symphysis. . Contrast: IV: 100 ml of Omnipaque 350 Oral: 500 ml of Omni 240 10-25ml diluted with water CT Radiation dose: Integrated Dose-length product (DLP) for this visit = 687 mGy*cm. CT Dose Reduction Employed: Automated exposure control (AEC) COMPARISON: 03/03/2024 09/03/2023 07/03/2022; PET/CT 03/11/2023 Abdomen / Pelvis: Liver: No focal hepatic lesions. Spleen: No focal splenic lesion. Pancreas: Whipple procedure. Remaining pancreas atrophic. Adrenals: No mass. Biliary: Pneumobilia related to hepaticojejunostomy. Status post cholecystectomy. Kidneys: Symmetric nephrograms bilaterally without hydronephrosis. Vasculature: The celiac axis and SMA are patent. The portal vein and branches, splenic vein, SMV, and hepatic veins are patent. Moderate atherosclerotic calcifications of the abdominal aorta without aneurysm. GI tract: Whipple procedure. Persistent irregular wall thickening involving a segment of small bowel in the right lower quadrant (coronal image 44). No bowel obstruction. Lymph nodes: No lymphadenopathy by CT size criteria. Mesentery/Peritoneum: No ascites, fluid collection, or mass. Pelvis: No mass or fluid collection. Urinary bladder is unremarkable. Bones/Soft tissues: No aggressive osseous lesions. Lower thorax: Dedicated CT imaging of the chest was performed concurrently and is dictated separately. Neighborhood Planner (topogram) images: Unremarkable. IMPRESSION: Persistent irregular wall thickening involving a segment of small bowel in the right lower quadrant. Lymphoma is of consideration. No metastatic disease in the abdomen or pelvis. Transcribe Date/Time: Jun 10 2024 11:28A Dictated by: SHERIE BETTENCOURT MD This examination was interpreted and the report reviewed and electronically signed by: SHERIE BETTENCOURT MD on Jun 10 2024 11:40AM EST Thank you for allowing us to participate in the care of your patient. Should there be any questions regarding this interpretation, please call [phone]. If you are unable to reach us at the number above, please feel free to contact [facility] eRadiology at [phone]. [id number] Normal [facility] CT CHEST W IVCONon CT CHEST W IVCON * * *Final Report* * * DATE OF EXAM: Jun 09 2024 2:47PM [facility] 0539 - CT CHEST W IVCON / PROCEDURE REASON: multiple diagnoses * * * * Physician Interpretation * * * * RESULT: EXAMINATION: CHEST CT WITH CONTRAST CLINICAL HISTORY: Cancer of ampulla of Vater (HCC) Iron deficiency anemia secondary to inadequate dietary iron intake Anemia due to vitamin B12 deficiency, unspecified B12 deficiency type Technique: Spiral CT acquisition of the chest from the thoracic inlet to the upper abdomen following IV contrast. MQ: [id number] Contrast: 100 mL Omnipaque [address] Dose-Length Product: 687 mGy*cm CT Dose Reduction Employed: Automated exposure control (AEC) Comparison: 03/03/2024 and 09/03/2023 RESULT: Lines, tubes, and devices: None. Lung parenchyma and airways: Trachea and central airways are patent. Development of multifocal groundglass opacities within the right upper lobe, right middle lobe, right lower lobe. Linear band of atelectasis or scarring in the right lower lobe. Pleural space: No pleural effusion or pneumothorax. Lower neck, lymph nodes, and mediastinum: No axillary, supraclavicular, mediastinal or hilar lymphadenopathy by CT size criteria. Calcified mediastinal lymph nodes. Heart, pericardium, and thoracic vessels: The heart is normal in size. No pericardial effusion. The thoracic aorta and main pulmonary artery are normal in caliber. Atherosclerotic calcifications of the thoracic aorta and coronary arteries. Bones/Soft Tissues: No aggressive osseous lesions. Upper abdomen: Dedicated CT imaging of the abdomen and pelvis was performed concurrently and is dictated separately. Neighborhood Planner (topogram) images: Unremarkable. IMPRESSION: Development of multifocal groundglass opacities in the right lung likely infectious/inflammatory. Follow-up is recommended to ensure resolution. Transcribe Date/Time: Jun 10 2024 11:44A Dictated by: SHERIE BETTENCOURT MD This examination was interpreted and the report reviewed and electronically signed by: SHERIE BETTENCOURT MD on Jun 10 2024 11:54AM EST Thank you for allowing us to participate in the care of your patient. Should there be any questions regarding this interpretation, please call [phone]. If you are unable to reach us at the number above, please feel free to contact [facility] at [phone]. [id number] Normal [facility] Ferritin [facility] 2023 Ferritin [Mass/Vol] 477.0 ng/mL Normal 30.3-565.7 [facility] Comment on above: Order Comment: Speci men Type: BLOOD SPECIMENOrdering Facility: [facility] Address: [address] [place] [address] Performed By: #### 5 0190-8, 2132-02, 2275-09, 2284-01 ####[facility] LABCLIA [id number] [place] [address] [place] Folate [facility] 06-09-20 Folate [Mass/Vol] 14.1 ng/mL Normal >4.7 [facility] Comment on above: Order Comment: Speci men Type: BLOOD SPECIMENOrdering Facility: [facility] Address: [address] [place] [address] Performed By: #### 5 0190-8, 2132-02, 2275-09, 2284-01 ####[facility] LABCLIA [id number] [place] [address] [place] Iron and Iron binding capaci panelon 06-09-2024 Iron [Mass/Vol] 19 ug/dL Low 41-186 [facility] Comment on above: Order Comment: Speci men Type: BLOOD SPECIMENOrdering Facility: [facility] Address: [address] [place] [address] Performed By: #### 5 0190-8, 9, 2275-09, 2284-01 ####[facility] LABCLIA [id number] [place] [address] [place] Iron binding capacity [Mass/Vol] 141 ug/dL Low 232-386 [facility] Comment on above: Order Comment: Speci men Type: BLOOD SPECIMENOrdering Facility: [facility] Address: [address] [place], [place] [id number] Performed By: #### 5 0190-8, 9, 4, 2284-01 ####[facility] LABCLIA [id number] [place] [id number] [place] Iron/TIBC [Molar ratio] 13.5 % Low 15.0-57.0 [facility] Comment on above: Order Comment: Speci men Type: BLOOD SPECIMENOrdering Facility: [facility] Address: [address] [place] [address] Performed By: #### 5 0190-8, 9, 4, 2284-01 ####[facility] LABCLIA [id number] [place] [id number] [place] Vit B12 [facility] 024 Cobalamin (Vitamin B12) [Mass/Vol] 657 pg/mL Normal 232-1245 [facility] Comment on above: Order Comment: Speci men Type: BLOOD SPECIMENOrdering Facility: [facility] Address: [address] [place] [address] Performed By: #### 5 0190-8, 9, 2275-09, 2284-01 ####[facility] LABCLIA [id number] [place] [id number] [place] 30on 05-30-2024 30 The patient is Moder ately Unstable - Medium risk of patient condition declining or worsening The patient's goals for the shift include rest The clinical goals for the shift include vss, no s/s bleeding Over the shift, the patient did not make progress toward the following goals. Barriers to progression include inadequate bowel prep. Recommendations to address these barriers include outpatient follow up with GI. Normal [facility] 30 Daily Case Managemen t Update Multidisciplinary rounds have been completed. Barriers to Discharge: Transferred from [place] with a 3-day history of melena and maroon-colored stool. S/p urgent EGD which showed stomach congestion in the region of fundus and post surgical changes. Plan for outpatient VCE. Hgb stable at 9.6. PT/OT recommend SNF, SW consulted. 1555: Patient is declining SNF and would like to discharge home with [facility]. Diet: Dietary Orders (From admission, onward) Start Ordered 05/30/24 1139 Special Kitchen Request Once Comments: Please send meatloaf, mashed potatoes and gravy, corn, milk, and strawberry cake. Thank you! 05/30/24 1139 05/29/24 0955 Regular Diet Diet effective now Question: Room Service? Answer: Yes 05/29/24 0954 05/28/24 1312 Special Kitchen Request Once Comments: Please send clear liquid tray no reds or purple. Thanks 05/28/24 1312 Physician Expected Discharge Date: 05/30/2024 Discharge Delays: PT Six Click Score: 11 OT Six Click Score: 13 PT Recommendations: long term facility placement OT Recommendations: long term facility placement New Consults: Ancillary Consults (From admission, onward) Start Ordered 05/30/24 1513 Inpatient consult to Social Work Once Provider: (Not yet assigned) Question Answer Comment Select all services needed for the patient [facility] (30 day convalescent stay) Please indicate your approval for this care by adding your name here: PURA PARKER 05/30/24 1512 Therapy Orders (From admission, onward) Start Ordered 05/30/24 0851 PT eval and treat Until therapy completed Question: Reason for PT? Answer: weakness 05/30/24 0850 05/30/24 0851 OT eval and treat Until therapy completed Question: Reason for OT? Answer: weakness 05/30/24 0850 Normal [facility] CBCon 05-30-2024 Erythrocyte distribution width (RBC) [Ratio] 17.6 % High 11.5-15.0 [facility] Comment on above: Performed By: #### L [id number] ####[facility] (BEAKER)[address] [place] [address] ERYTHROCYTE MEAN CORPUSCULAR HEMOGLOBIN CONCENTRATION (G/DL) BY AUTOMATED 32.0 g/dL Normal 32.0-35.0 [facility] Comment on above: Performed By: #### L [id number] ####[facility] ([facility])[address] [place] [address] Hematocrit (Bld) [Volume fraction] 30.0 % Low 39.0-55.0 [facility] Comment on above: Performed By: #### L [id number] ####[facility] ([facility])[address] [place] [address] Hemoglobin (Bld) [Mass/Vol] 9.6 g/dL Low 13.0-17.0 [facility] Comment on above: Performed By: #### L [id number] ####[facility] ([facility])[address] [place] [address] MCH (RBC) [Entitic mass] 32.5 pg Normal 27.0-33.0 [facility] Comment on above: Performed By: #### L [id number] ####[facility] ([facility])[address] [place] [address] MCV (RBC) [Entitic vol] 101.7 fL High 82.0-98.0 [facility] Comment on above: Performed By: #### L [id number] ####[facility] ([facility])[address] [place] [address] PLATELETS (10*3/UL) IN BLOOD AUTOMATED COUNT 245 10*3/uL Normal 150-400 [facility] Comment on above: Performed By: #### L [id number] ####[facility] ([facility])[address] [place] [address] RBC (Bld) [#/Vol] 2.95 10*6/uL Low 4.20-5.70 [facility] Comment on above: Performed By: #### L [id number] ####[facility] ([facility])[address] [place] [address] WBC (Bld) [#/Vol] 2.64 10*3/uL Low 4.00-10.60 [facility] Comment on above: Performed By: #### L [id number] ####[facility] ([facility])[address] [place] [address] COMPREHENSIVE METABOLIC PANE Huseyin 05-30-2024 Albumin [Mass/Vol] 2.1 g/dL Low 3.5-5.7 [facility] Comment on above: Performed By: #### L [id number] #### [facility] ([facility]) [address] [place] [address] ALP [Catalytic activity/Vol] 82 U/L Normal 34-104 [facility] Comment on above: Performed By: #### L [id number] #### [facility] ([facility]) [address] [place] [address] ALT [Catalytic activity/Vol] 9 U/L Normal 7-52 [facility] Comment on above: Performed By: #### L [id number] #### [facility] ([facility]) [address] [place] [address] Anion gap [Moles/Vol] 6 mmol/L Low 7-20 [facility] Comment on above: Performed By: #### L [id number] #### [facility] ([facility]) [address] [place] [address] AST [Catalytic activity/Vol] 12 U/L Low 13-39 [facility] Comment on above: Performed By: #### L [id number] #### [facility] ([facility]) [address] [place] [address] Bilirubin [Mass/Vol] 0.2 mg/dL Low 0.3-1.0 [facility] Comment on above: Performed By: #### L [id number] #### [facility] ([facility]) [address] [place] [address] Calcium [Mass/Vol] 7.2 mg/dL Low 8.6-10.3 [facility] Comment on above: Performed By: #### L [id number] #### [facility] ([facility]) [address] [place] [address] Chloride [Moles/Vol] 110 mmol/L High 98-107 [facility] Comment on above: Performed By: #### L [id number] #### [facility] ([facility]) [address] [place] [address] CO2 [Moles/Vol] 23 mmol/L Normal 21-31 [facility] Comment on above: Performed By: #### L [id number] #### [facility] ([facility]) [address] [place] [address] Creatinine [Mass/Vol] 0.45 mg/dL Low 0.70-1.30 [facility] Comment on above: Performed By: #### L [id number] #### [facility] ([facility]) [address] [place] [address] GLOMERULAR FILTRATION RATE ML/MIN/1.73 SQ M.PREDICTED 116.1 mL/min/1.73m*2 Normal >60.0 [facility] Comment on above: Result Comment: The [facility]???s estimated glomerular filtration rate (eGFR) will no longer include consideration of race in its calculation. The National Kidney Foundation???s eGFR Task Force developed new recommendations for the estimation of the glomerular filtration rate in the [place] They recommend immediate implementation of the new equation refit without the race variable in all laboratories because the calculation does not include race. In addition to not including race in the calculation and reporting, it included diversity in its development, and has acceptable performance characteristics and potential consequences that do not disproportionately affect any one group of individuals. Performed By: #### L [id number] #### [facility] ([facility]) [address] [place] [address] Glucose [Mass/Vol] 107 mg/dL High 70-100 [facility] Comment on above: Performed By: #### L [id number] #### [facility] ([facility]) [address] [place] [address] Potassium [Moles/Vol] 3.4 mmol/L Low 3.5-5.1 [facility] Comment on above: Performed By: #### L [id number] #### [facility] ([facility]) [address] [place] [address] Protein [Mass/Vol] 4.2 g/dL Low 6.0-8.3 [facility] Comment on above: Performed By: #### L [id number] #### [facility] ([facility]) [address] [place] [address] Sodium [Moles/Vol] 136 mmol/L Normal 136-145 [facility] Comment on above: Performed By: #### L [id number] #### [facility] ([facility]) [address] [place] [address] Urea nitrogen [Mass/Vol] 10 mg/dL Normal 7-25 [facility] Comment on above: Performed By: #### L [id number] #### [facility] ([facility]) [address] [place] [address] UREA NITROGEN/CREATININE (MASS RATIO) IN SER/PLAS 22.2 Normal [facility] Comment on above: Performed By: #### L [id number] #### [facility] ([facility]) [address] [place] [address] HEMOGLOBIN AND HEMATOCRIT, B LOODon 05-30-2024 Hematocrit (Bld) [Volume fraction] 28.7 % Low 39.0-55.0 [facility] Comment on above: Performed By: #### L [id number] #### [facility] ([facility]) [address] [place] [address] Hemoglobin (Bld) [Mass/Vol] 9.7 g/dL Low 13.0-17.0 [facility] Comment on above: Performed By: #### L [id number] #### [facility] ([facility]) [address] [place] [address] Hematocrit (Bld) [Volume fraction] 31.5 % Low 39.0-55.0 [facility] Comment on above: Performed By: #### L [id number] ####[facility] (BEAK[facility])[address] [place] [address] Hemoglobin (Bld) [Mass/Vol] 10.5 g/dL Low 13.0-17.0 [facility] Comment on above: Performed By: #### L [id number] ####[facility] ([facility])[address] [place] [address] Hematocrit (Bld) [Volume fraction] 28.4 % Low 39.0-55.0 [facility] Comment on above: Performed By: #### L [id number] ####[facility] ([facility])[address] [place] [address] Hemoglobin (Bld) [Mass/Vol] 9.6 g/dL Low 13.0-17.0 [facility] Comment on above: Performed By: #### L [id number] ####[facility] ([facility])[address] [place] [address] AMMONIAon 05-29-2024 AMMONIA (UMOL/L) IN PLASMA 27 umol/L Normal 18-72 [facility] Comment on above: Performed By: #### L [id number] ####[facility] ([facility])[address] [place] [address] CBC WITH AUTO DIFFERENTIALon 05-29-2024 Erythrocyte distribution width (RBC) [Ratio] 18.6 % High 11.5-15.0 [facility] Comment on above: Performed By: #### L [id number] #### [facility] ([facility]) [address] [place] [address] ERYTHROCYTE MEAN CORPUSCULAR HEMOGLOBIN CONCENTRATION (G/DL) BY AUTOMATED 32.4 g/dL Normal 32.0-35.0 [facility] Comment on above: Performed By: #### L [id number] #### [facility] ([facility]) [address] [place] [address] Hematocrit (Bld) [Volume fraction] 31.8 % Low 39.0-55.0 [facility] Comment on above: Performed By: #### L [id number] #### [facility] ([facility]) [address] [place] [address] Hemoglobin (Bld) [Mass/Vol] 10.3 g/dL Low 13.0-17.0 [facility] Comment on above: Performed By: #### L [id number] #### [facility] ([facility]) [address] [place] [address] MCH (RBC) [Entitic mass] 32.2 pg Normal 27.0-33.0 [facility] Comment on above: Performed By: #### L [id number] #### [facility] ([facility]) [address] [place] [address] MCV (RBC) [Entitic vol] 99.4 fL High 82.0-98.0 [facility] Comment on above: Performed By: #### L [id number] #### [facility] ([facility]) [address] [place] [address] NRBC (PER 100 WBCS) BY AUTOMATED COUNT 0.0 % Normal 0 [facility] Comment on above: Performed By: #### L [id number] #### [facility] ([facility]) [address] [place] [address] PLATELETS (10*3/UL) IN BLOOD AUTOMATED COUNT 217 10*3/uL Normal 150-400 [facility] Comment on above: Performed By: #### L [id number] #### [facility] ([facility]) [address] [place] [address] RBC (Bld) [#/Vol] 3.20 10*6/uL Low 4.20-5.70 [facility] Comment on above: Performed By: #### L [id number] #### [facility] ([facility]) [address] [place] [address] WBC (Bld) [#/Vol] 2.09 10*3/uL Low 4.00-10.60 [facility] Comment on above: Performed By: #### L [id number] #### [facility] ([facility]) [address] [place] [address] COMPREHENSIVE METABOLIC PANE Huseyin 05-29-2024 Albumin [Mass/Vol] 2.4 g/dL Low 3.5-5.7 [facility] Comment on above: Performed By: #### L [id number] ####[facility] ([facility]ER)[address] [place] [address] ALP [Catalytic activity/Vol] 97 U/L Normal 34-104 [facility] Comment on above: Performed By: #### L [id number] ####[facility] ([facility])[address] [place] [address] ALT [Catalytic activity/Vol] 10 U/L Normal 7-52 [facility] Comment on above: Performed By: #### L [id number] ####[facility] ([facility]AKER)[address] [place] [address] Anion gap [Moles/Vol] 11 mmol/L Normal 7-20 [facility] Comment on above: Performed By: #### L [id number] ####[facility] ([facility]ER)[address] [place] [address] AST [Catalytic activity/Vol] 20 U/L Normal 13-39 [facility] Comment on above: Performed By: #### L [id number] ####[facility] ([facility]AKER)[address] [place] [address] Bilirubin [Mass/Vol] 0.3 mg/dL Normal 0.3-1.0 [facility] Comment on above: Performed By: #### L [id number] ####[facility] ([facility]ER)[address] [place] [address] Calcium [Mass/Vol] 7.6 mg/dL Low 8.6-10.3 [facility] Comment on above: Performed By: #### L [id number] ####[facility] ([facility]ER)[address] [place] [address] Chloride [Moles/Vol] 108 mmol/L High 98-107 [facility] Comment on above: Performed By: #### L [id number] ####[facility] ([facility])[address] [place] [address] CO2 [Moles/Vol] 22 mmol/L Normal 21-31 [facility] Comment on above: Performed By: #### L [id number] ####[facility] ([facility])[address] [place] [place] [address] Creatinine [Mass/Vol] 0.44 mg/dL Low 0.70-1.30 [facility] Comment on above: Performed By: #### L [id number] ####[facility] ([facility])[address] [place] [address] GLOMERULAR FILTRATION RATE ML/MIN/1.73 SQ M.PREDICTED 116.9 mL/min/1.73m*2 Normal >60.0 [facility] Comment on above: Result Comment: The [facility]???s estimated glomerular filtration rate (eGFR) will no longer include consideration of race in its calculation. The National Kidney Foundation???s eGFR Task Force developed new recommendations for the estimation of the glomerular filtration rate in the [place] They recommend immediate implementation of the new equation refit without the race variable in all laboratories because the calculation does not include race. In addition to not including race in the calculation and reporting, it included diversity in its development, and has acceptable performance characteristics and potential consequences that do not disproportionately affect any one group of individuals. Performed By: #### L [id number] ####[facility] ([facility])[address] [place] [address] Glucose [Mass/Vol] 98 mg/dL Normal 70-100 [facility] Comment on above: Performed By: #### L [id number] ####[facility] ([facility])[address] [place] [address] Potassium [Moles/Vol] 3.7 mmol/L Normal 3.5-5.1 [facility] Comment on above: Performed By: #### L [id number] ####[facility] ([facility])[address] [place] [address] Protein [Mass/Vol] 4.7 g/dL Low 6.0-8.3 [facility] Comment on above: Performed By: #### L [id number] ####[facility] ([facility])[address] [place] [address] Sodium [Moles/Vol] 137 mmol/L Normal 136-145 [facility] Comment on above: Performed By: #### L [id number] ####[facility] ([facility])[address] [place] [address] Urea nitrogen [Mass/Vol] 18 mg/dL Normal 7-25 [facility] Comment on above: Performed By: #### L [id number] ####[facility] ([facility])[address] [place] [address] UREA NITROGEN/CREATININE (MASS RATIO) IN SER/PLAS 40.9 Normal [facility] Comment on above: Performed By: #### L [id number] ####[facility] ([facility])[address] [place] [address] HEMOGLOBIN AND HEMATOCRIT, B LOODon 05-29-2024 Hematocrit (Bld) [Volume fraction] 28.9 % Low 39.0-55.0 [facility] Comment on above: Performed By: #### L [id number] ####[facility] ([facility])[address] [place] [address] Hemoglobin (Bld) [Mass/Vol] 9.9 g/dL Low 13.0-17.0 [facility] Comment on above: Performed By: #### L [id number] ####[facility] ([facility])[address] [place] [address] Hematocrit (Bld) [Volume fraction] 29.9 % Low 39.0-55.0 [facility] Comment on above: Performed By: #### L [id number] ####[facility] ([facility])[address] [place] [address] Hemoglobin (Bld) [Mass/Vol] 10.0 g/dL Low 13.0-17.0 [facility] Comment on above: Performed By: #### L [id number] ####[facility] ([facility])[address] [place] [address] HISTOLOGY - TISSUE EXAMon LAB AP CASE REPORT Normal [facility] Comment on above: Result Comment: Surg ical Pathology Case: [id number] Authorizing Provider: Sarthak Reyes MD Collected: 05/29/2024 0902 Ordering Location: [address] Neurology Received: 05/30/2024 0551 Pathologist: Estrellita Andre MD Specimen: Small Intestine, Terminal Ileum, r/o illitis Performed By: #### L [id number] ####[facility] ([facility])[address] [place] [address] LAB AP CLINICAL INFORMATION Order Diagnoses [facility] Comment on above: Result Comment: K92. 2 - GI bleed [ICD-10-CM] Performed By: #### L [id number] ####[facility] ([facility])[address] [place] [address] LAB AP GROSS DESCRIPTION [facility] Comment on above: Result Comment: A. S mall Intestine, Terminal Ileum. Received in formalin labeled with the patient's name Rocio Jackson and terminal ile rule out illitis, are 2 sanchez-johnson, feathery mucosal fragments, 0.3 cm and 0.2 cm in greatest dimension. The specimen is submitted in toto in 1 cassette. Sabrina Rosario, Pathologists' Machine Umbrella Tipper Student Performed By: #### L [id number] ####[facility] ([facility])[address] [place] [address] LAB AP MICROSCOPIC DESCRIPTION Microscopic examination performed. [facility] Comment on above: Performed By: #### L [id number] ####[facility] ([facility])[address] [place] [address] LAB AP REPORT FINAL DIAGNOSIS NARRATIVE [facility] Comment on above: Result Comment: A. T erminal ileum, biopsy: - Small bowel mucosa and Peyer's patch lymphoid tissue with no significant histologic abnormality. Performed By: #### L [id number] ####[facility] ([facility])[address] [place] [address] LACTIC ACID WITH 4 HOUR REFL EXon 05-29-2024 LACTATE (MMOL/L) IN SER/PLAS 0.9 mmol/L Normal 0.5-2.2 [facility] Comment on above: Performed By: #### L [id number] ####[facility] ([facility])[address] [place] [address] MANUAL DIFFERENTIALon 2023 ANISOCYTOSIS PRESENCE IN BLOOD BY LIGHT MICROSCOPY Moderate Normal [facility] Comment on above: Performed By: #### L [id number] ####[facility] ([facility])[address] [place] [address] BASOPHILS (10*3/UL) IN BLOOD BY CALCULATION 0.03 10*3/uL Normal 0.00-0.20 [facility] Comment on above: Performed By: #### L [id number] ####[facility] ([facility])[address] [place] [address] BASOPHILS/100 LEUKOCYTES IN BLOOD BY AUTOMATED COUNT 1.5 % High 0.0-1.0 [facility] Comment on above: Performed By: #### L [id number] ####[facility] ([facility])[address] [place] [address] EOSINOPHILS (10*3/UL) IN BLOOD BY CALCULATION 0.05 10*3/uL Normal 0.00-0.50 [facility] Comment on above: Performed By: #### L [id number] ####[facility] ([facility])[address] [place] [address] EOSINOPHILS/100 LEUKOCYTES IN BLOOD BY AUTOMATED COUNT 2.2 % Normal 0.0-6.0 [facility] Comment on above: Performed By: #### L [id number] ####[facility] ([facility])[address] [place] [address] IMMATURE GRANULOCYTES (10*3/UL) IN BLOOD BY CALCULATION 0.01 10*3/uL Normal 0.00-0.20 [facility] Comment on above: Performed By: #### L [id number] ####[facility] ([facility])[address] [place] [address] IMMATURE GRANULOCYTES/100 LEUKOCYTES IN BLOOD BY AUTOMATED COUNT 0.5 % Normal 0.0-1.0 [facility] Comment on above: Performed By: #### L [id number] ####[facility] ([facility])[address] [place] [address] LYMPHOCYTES (10*3/UL) IN BLOOD BY CALCULATION 0.20 10*3/uL Low 1.20-4.00 [facility] Comment on above: Performed By: #### L [id number] ####[facility] ([facility])[address] [place] [address] LYMPHOCYTES/100 LEUKOCYTES IN BLOOD BY AUTOMATED COUNT 9.6 % Low 20.0-45.0 [facility] Comment on above: Performed By: #### L [id number] ####[facility] ([facility])[address] [place] [address] MONOCYTES (10*3/UL) IN BLOOD BY CALCUATION 0.09 10*3/uL Low 0.10-1.00 [facility] Comment on above: Performed By: #### L [id number] ####[facility] ([facility])[address] [place] [address] MONOCYTES/100 LEUKOCYTES IN BLOOD BY AUTOMATED COUNT 4.4 % Low 5.0-12.0 [facility] Comment on above: Performed By: #### L [id number] ####[facility] ([facility])[address] [place] [address] NEUTROPHILS (10*3/UL) IN BLOOD BY CALCULATION 1.7 10*3/uL Normal 1.6-7.6 [facility] Comment on above: Performed By: #### L [id number] ####[facility] ([facility])[address] [place] [address] NEUTROPHILS/100 LEUKOCYTES IN BLOOD BY AUTOMATED COUNT 82.3 % High 40.0-72.0 [facility] Comment on above: Performed By: #### L [id number] ####[facility] ([facility])[address] [facility] [address] PLASMA CELLS/100 LEUKOCYTES IN BLOOD 0 % Normal 0 [facility] Comment on above: Performed By: #### L [id number] ####[facility] ([facility])[address] [place] [address] PLATELETS GIANT PRESENCE IN BLOOD BY LIGHT MICROSCOPY Present Normal [facility] Comment on above: Performed By: #### L [id number] ####[facility] ([facility])[address] [facility] [address] POIKILOCYTOSIS (PRESENCE) IN BLOOD BY LIGHT MICROSCOPY Slight Normal [facility] Comment on above: Performed By: #### L [id number] ####[facility] ([facility])[address] [facility] [address] POLYCHROMASIA IN BLOOD BY LIGHT MICROSCOPY Slight Normal [facility] Comment on above: Performed By: #### L [id number] ####[facility] ([facility])[address] [facility] [address] VARIANT LYMPHOCYTES (10*3/UL) IN BLOOD BY CALCULATION 0.00 10*3/uL Normal 0.00 [facility] Comment on above: Performed By: #### L [id number] ####[facility] ([facility])[address] [facility] [address] VARIANT LYMPHOCYTES/100 LEUKOCYTES IN BLOOD CELLAVISION 0.0 % Normal 0.0-0.0 [facility] Comment on above: Performed By: #### L [id number] ####[facility] ([facility])[address] [facility] [place] [address] NURSNOTEon 05-29-2024 NURSNOTE Poor prep [facility] NURSNOTE cecum [facility] NURSNOTE No family here per p t, [facility], but would like a phone call with an update. Pt states he is naked under his gown, no personal belongings here with him in the pre op . PBC,RNBSN. [facility] NURSNOTE Quality Assurance Auditor went into pat ient room, patient seemed confused and less alert, notified doctor, ordered cmp, bmp, lactate, and ammonia. Normal [facility] POCT GLUCOSE METER UNSOLICIT ED RESULTSon 05-29-2024 Glucose [Mass/Vol] 94 mg/dL Normal 70-105 [facility] Comment on above: Order Comment: Waive d Testing in the ED is performed under the ED CLIA certificate #[id number]. Result Comment: bacr es Performed By: #### L [id number] #### [facility] ([facility]) [address] [place] [address] B-TYPE NATRIURETIC PEPTIDEon 05-28-2024 Natriuretic peptide B (Bld) [Mass/Vol] 168 pg/mL High 0-100 [facility] Comment on above: Performed By: #### L [id number] #### [facility] ([facility]) [address] [place] [address] BLOOD CULTUREon 05-28-2024 Bacteria identified Cx Nom (Bld) No growth at 5 days Normal [facility] Comment on above: Performed By: #### L [id number] ####[facility] ([facility])[address] [place] [address] Order Comment: From a different site than #1. CBC WITH AUTO DIFFERENTIALon 05-28-2024 Basophils (Bld) [#/Vol] 0.01 10*3/uL Normal 0.00-0.20 [facility] Comment on above: Performed By: #### L [id number] #### [facility] ([facility]) [address] [place] [address] Basophils/100 WBC (Bld) 0.3 % Normal 0.0-1.0 [facility] Comment on above: Performed By: #### L [id number] #### [facility] ([facility]) [address] [place] [address] Eosinophils (Bld) [#/Vol] 0.05 10*3/uL Normal 0.00-0.50 [facility] Comment on above: Performed By: #### L [id number] #### [facility] ([facility]) [address] [place] [address] Eosinophils/100 WBC (Bld) 1.5 % Normal 0.0-6.0 [facility] Comment on above: Performed By: #### L [id number] #### [facility] ([facility]) [address] [place] [address] Erythrocyte distribution width (RBC) [Ratio] 17.2 % High 11.5-15.0 [facility] Comment on above: Performed By: #### L [id number] #### [facility] ([facility]) [address] [place] [address] ERYTHROCYTE MEAN CORPUSCULAR HEMOGLOBIN CONCENTRATION (G/DL) BY AUTOMATED 32.5 g/dL Normal 32.0-35.0 [facility] Comment on above: Performed By: #### L [id number] #### [facility] ([facility]) [address] [place] [address] Hematocrit (Bld) [Volume fraction] 28.6 % Low 39.0-55.0 [facility] Comment on above: Performed By: #### L [id number] #### [facility] ([facility]) [address] [place] [address] Hemoglobin (Bld) [Mass/Vol] 9.3 g/dL Low 13.0-17.0 [facility] Comment on above: Performed By: #### L [id number] #### [facility] ([facility]) [address] [place] [address] Immature granulocytes (Bld) [#/Vol] 0.02 10*3/uL Normal 0.00-0.20 [facility] Comment on above: Performed By: #### L [id number] #### [facility] ([facility]) [address] [place] [address] Immature granulocytes/100 WBC (Bld) 0.6 % Normal 0.0-1.0 [facility] Comment on above: Performed By: #### L [id number] #### [facility] ([facility]) [address] [place] [address] Lymphocytes (Bld) [#/Vol] 0.66 10*3/uL Low 1.20-4.00 [facility] Comment on above: Performed By: #### L [id number] #### [facility] ([facility]) [address] [address] Lymphocytes/100 WBC (Bld) 19.4 % Low 20.0-45.0 [facility] Comment on above: Performed By: #### L [id number] #### [facility] ([facility]) [address] [address] MCH (RBC) [Entitic mass] 32.6 pg Normal 27.0-33.0 [facility] Comment on above: Performed By: #### L [id number] #### [facility] ([facility]) [address] [place] [address] MCV (RBC) [Entitic vol] 100.4 fL High 82.0-98.0 [facility] Comment on above: Performed By: #### L [id number] #### [facility] ([facility]) [address] [address] Monocytes (Bld) [#/Vol] 0.35 10*3/uL Normal 0.10-1.00 [facility] Comment on above: Performed By: #### L [id number] #### [facility] ([facility]) [address] [place] [address] Monocytes/100 WBC (Bld) 10.3 % Normal 5.0-12.0 [facility] Comment on above: Performed By: #### L [id number] #### [facility] ([facility]) [address] [place] [address] Neutrophils (Bld) [#/Vol] 2.31 10*3/uL Normal 1.60-7.60 [facility] Comment on above: Performed By: #### L [id number] #### [facility] ([facility]) [address] [place] [address] Neutrophils/100 WBC (Bld) 67.9 % Normal 40.0-72.0 [facility] Comment on above: Performed By: #### L [id number] #### [facility] ([facility]) [address] [place] [address] NRBC (PER 100 WBCS) BY AUTOMATED COUNT 0.0 % Normal 0 [facility] Comment on above: Performed By: #### L [id number] #### [facility] ([facility]) [address] [place] [address] PLATELETS (10*3/UL) IN BLOOD AUTOMATED COUNT 115 10*3/uL Low 150-400 [facility] Comment on above: Performed By: #### L [id number] #### [facility] ([facility]) [address] [place] [address] RBC (Bld) [#/Vol] 2.85 10*6/uL Low 4.20-5.70 [facility] Comment on above: Performed By: #### L [id number] #### [facility] ([facility]) [address] [place] [address] WBC (Bld) [#/Vol] 3.40 10*3/uL Low 4.00-10.60 [facility] Comment on above: Performed By: #### L [id number] #### [facility] ([facility]) [address] [place] [address] Basophils (Bld) [#/Vol] 0.00 10*3/uL Normal 0.00-0.20 [facility] Comment on above: Performed By: #### L [id number] #### [facility] ([facility]) [address] [place] [address] Basophils/100 WBC (Bld) 0.0 % Normal 0.0-1.0 [facility] Comment on above: Performed By: #### L [id number] #### [facility] ([facility]) [address] [place] [address] Eosinophils (Bld) [#/Vol] 0.04 10*3/uL Normal 0.00-0.50 [facility] Comment on above: Performed By: #### L [id number] #### [facility] ([facility]) [address] [place] [address] Eosinophils/100 WBC (Bld) 1.2 % Normal 0.0-6.0 [facility] Comment on above: Performed By: #### L [id number] #### [facility] ([facility]) [address] [place] [address] Erythrocyte distribution width (RBC) [Ratio] 16.9 % High 11.5-15.0 [facility] Comment on above: Performed By: #### L [id number] #### [facility] ([facility]) [address] [place] [address] ERYTHROCYTE MEAN CORPUSCULAR HEMOGLOBIN CONCENTRATION (G/DL) BY AUTOMATED 33.0 g/dL Normal 32.0-35.0 [facility] Comment on above: Performed By: #### L [id number] #### [facility] ([facility]) [address] [address] Hematocrit (Bld) [Volume fraction] 26.4 % Low 39.0-55.0 [facility] Comment on above: Performed By: #### L [id number] #### [facility] ([facility]) [address] [place] [address] Hemoglobin (Bld) [Mass/Vol] 8.7 g/dL Low 13.0-17.0 [facility] Comment on above: Performed By: #### L [id number] #### [facility] ([facility]) [address] [place] [address] Immature granulocytes (Bld) [#/Vol] 0.03 10*3/uL Normal 0.00-0.20 [facility] Comment on above: Performed By: #### L [id number] #### [facility] ([facility]) [address] [place] [address] Immature granulocytes/100 WBC (Bld) 0.9 % Normal 0.0-1.0 [facility] Comment on above: Performed By: #### L [id number] #### [facility] ([facility]) [address] [place] [address] Lymphocytes (Bld) [#/Vol] 0.72 10*3/uL Low 1.20-4.00 [facility] Comment on above: Performed By: #### L [id number] #### [facility] ([facility]) [address] [address] Lymphocytes/100 WBC (Bld) 21.3 % Normal 20.0-45.0 [facility] Comment on above: Performed By: #### L [id number] #### [facility] ([facility]) [address] [place] [address] MCH (RBC) [Entitic mass] 32.6 pg Normal 27.0-33.0 [facility] Comment on above: Performed By: #### L [id number] #### [facility] ([facility]) [address] [place] [address] MCV (RBC) [Entitic vol] 98.9 fL High 82.0-98.0 [facility] Comment on above: Performed By: #### L [id number] #### [facility] ([facility]) [address] [address] Monocytes (Bld) [#/Vol] 0.34 10*3/uL Normal 0.10-1.00 [facility] Comment on above: Performed By: #### L [id number] #### [facility] ([facility]) [address] [place] [address] Monocytes/100 WBC (Bld) 10.1 % Normal 5.0-12.0 [facility] Comment on above: Performed By: #### L [id number] #### [facility] ([facility]) [address] [place] [address] Neutrophils (Bld) [#/Vol] 2.25 10*3/uL Normal 1.60-7.60 [facility] Comment on above: Performed By: #### L [id number] #### [facility] ([facility]) [address] [place] [address] Neutrophils/100 WBC (Bld) 66.5 % Normal 40.0-72.0 [facility] Comment on above: Performed By: #### L [id number] #### [facility] ([facility]) [address] [place] [address] NRBC (PER 100 WBCS) BY AUTOMATED COUNT 0.0 % Normal 0 [facility] Comment on above: Performed By: #### L [id number] #### [facility] ([facility]) [address] [place] [address] PLATELETS (10*3/UL) IN BLOOD AUTOMATED COUNT 222 10*3/uL Normal 150-400 [facility] Comment on above: Performed By: #### L [id number] #### [facility] ([facility]) [address] [place] [address] RBC (Bld) [#/Vol] 2.67 10*6/uL Low 4.20-5.70 [facility] Comment on above: Performed By: #### L [id number] #### [facility] ([facility]) [address] [place] [address] WBC (Bld) [#/Vol] 3.38 10*3/uL Low 4.00-10.60 [facility] Comment on above: Performed By: #### L [id number] #### [facility] ([facility]) [address] [place] [address] COMPREHENSIVE METABOLIC PANE Huseyin 05-28-2024 Albumin [Mass/Vol] 2.1 g/dL Low 3.5-5.7 [facility] Comment on above: Performed By: #### L [id number] #### [facility] ([facility]) [address] [place] [address] ALP [Catalytic activity/Vol] 90 U/L Normal 34-104 [facility] Comment on above: Performed By: #### L [id number] #### [facility] ([facility]) [address] [place] [address] ALT [Catalytic activity/Vol] 8 U/L Normal 7-52 [facility] Comment on above: Performed By: #### L [id number] #### [facility] ([facility]) [address] [place] [address] Anion gap [Moles/Vol] 10 mmol/L Normal 7-20 [facility] Comment on above: Performed By: #### L [id number] #### [facility] ([facility]) [address] [place] [address] AST [Catalytic activity/Vol] 14 U/L Normal 13-39 [facility] Comment on above: Performed By: #### L [id number] #### [facility] ([facility]) [address] [place] [address] Bilirubin [Mass/Vol] 0.6 mg/dL Normal 0.3-1.0 [facility] Comment on above: Performed By: #### L [id number] #### [facility] ([facility]) [address] [place] [address] Calcium [Mass/Vol] 7.1 mg/dL Low 8.6-10.3 [facility] Comment on above: Performed By: #### L [id number] #### [facility] ([facility]) [address] [place] [address] Chloride [Moles/Vol] 109 mmol/L High 98-107 [facility] Comment on above: Performed By: #### L [id number] #### [facility] ([facility]) [address] [place] [address] CO2 [Moles/Vol] 20 mmol/L Low 21-31 [facility] Comment on above: Performed By: #### L [id number] #### [facility] ([facility]) [address] [place] [address] Creatinine [Mass/Vol] 0.46 mg/dL Low 0.70-1.30 [facility] Comment on above: Performed By: #### L [id number] #### [facility] ([facility]) [address] [place] [address] GLOMERULAR FILTRATION RATE ML/MIN/1.73 SQ M.PREDICTED 115.4 mL/min/1.73m*2 Normal >60.0 [facility] Comment on above: Result Comment: The [facility]???s estimated glomerular filtration rate (eGFR) will no longer include consideration of race in its calculation. The [employer]???s eGFR Task Force developed new recommendations for the estimation of the glomerular filtration rate in the [place] They recommend immediate implementation of the new equation refit without the race variable in all laboratories because the calculation does not include race. In addition to not including race in the calculation and reporting, it included diversity in its development, and has acceptable performance characteristics and potential consequences that do not disproportionately affect any one group of individuals. Performed By: #### L [id number] #### [facility] ([facility]) [address] [place] [address] Glucose [Mass/Vol] 75 mg/dL Normal 70-100 [facility] Comment on above: Performed By: #### L [id number] #### [facility] ([facility]) [address] [place] [address] Potassium [Moles/Vol] 4.0 mmol/L Normal 3.5-5.1 [facility] Comment on above: Performed By: #### L [id number] #### [facility] ([facility]) [address] [place] [address] Protein [Mass/Vol] 4.3 g/dL Low 6.0-8.3 [facility] Comment on above: Performed By: #### L [id number] #### [facility] ([facility]) [address] [place] [address] Sodium [Moles/Vol] 135 mmol/L Low 136-145 [facility] Comment on above: Performed By: #### L [id number] #### [facility] ([facility]) [address] [place] [address] Urea nitrogen [Mass/Vol] 32 mg/dL High 7-25 [facility] Comment on above: Performed By: #### L [id number] #### [facility] ([facility]) [address] [place] [address] UREA NITROGEN/CREATININE (MASS RATIO) IN SER/PLAS 69.6 Normal [facility] Comment on above: Performed By: #### L [id number] #### [facility] ([facility]) [address] [place] [address] CONSULTon 05-28-2024 CONSULT -------- Attestation signed by Storm Wright MD at 05/29/2024 7:40 PM (Updated) Attending attestation: GC: I personally saw this patient on the day of the encounter, performed the figueroa portion(s) of the service and participated in the management and confirm the resident's documentation. Please note there may be an additional personal documentation from me. Additional Comments: #small bowel obstruction: reviewed ct abdomen pelvis imaging, does show focal area of vascular rotation and bowel thickening. Patient is benign abdomen on exam, continues to have bowel function, and normal lactate. Although concerning CT imaging, no clinical sign of obstruction which would be suggested by image concern. General surgery will follow closely and be available for abdominal exploration. At this time ok to proceed with bowel prep for diagnostic colonoscopy with GI [facility] General Surgery CONSULTATION Reason for Consult: CT scan finding concerning for possible SBO with ischemic changes History of Present Illness: Rocio Jackson is a 68 y.o. male who is currently admitted to the hospital due to several day history of melena and maroon-colored stool. Transferred from an outside facility. The general surgery team was consulted after CT scan with IV contrast demonstrated focal transitional area and localized distal small bowel mucosal wall thickening and enhancement associated with enteric swirling. Previous EGD and colonoscopy in July 2023 was unremarkable. The gastroenterology team is on board for this patient. Patient was seen and evaluated at bedside where he was noted to not be in acute distress. He denies lightheadedness or dizziness at this time. He denies abdominal pain and is hoping that he is able to have something to eat soon. 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 Review of Systems Constitutional: Negative. HENT: Negative. Eyes: Negative. Respiratory: Negative. Cardiovascular: Negative. Gastrointestinal: Positive for blood in stool. Negative for nausea and vomiting. Endocrine: Negative. Genitourinary: Negative. Musculoskeletal: Negative. Allergic/Immunologic: Negative. Neurological: Positive for weakness. Hematological: Negative. Psychiatric/Behavioral: Negative. No past medical history on file. No past surgical history on file. No Known Allergies Current Facility-Administered Medications: cefTRIAXone (Rocephin) IVPB 2 g in NS 50 mL (Mini-Bag Plus), 2 g, intravenous, q24h, Kings Castillo MD, Stopped at 05/28/24 0431 flu vac 2023 [id number](PF) 45 mcg (15 mcg x 3)/0.5 mL syringe 0.5 mL, 0.5 mL, intramuscular, During hospitalization, Justin Zapata MD metroNIDAZOLE in NaCl (iso-os) (Flagyl) IVPB 500 mg, 500 mg, intravenous, BID, Kings Castillo MD, Stopped at 05/28/24 0600 pantoprazole (ProtoNix) injection 40 mg, 40 mg, intravenous, q24h DONNY, Kings Castillo MD, 40 mg at 05/28/24 1006 sodium chloride 0.9 % infusion, 20 mL/hr, intravenous, Continuous, Aamir Luciano DO, Last Rate: 20 mL/hr at 05/27/242251, 20 mL/hr at 05/27/242251 Social History Socioeconomic History Marital status: Spouse name: Not on file Number of children: Not on file Years of education: Not on file Highest education level: Not on file Occupational History Not on file Tobacco Use Smoking status: Former Current packs/day: 0.00 Types: Cigarettes, Pipe Quit date: 1970 Years since quittin.9 Smokeless tobacco: Never Substance and Sexual Activity Alcohol use: Not on file Drug use: Not on file Sexual activity: Not on file Other Topics Concern Not on file Social History Narrative Not on file Social Determinants of Health Financial Resource Strain: Low Risk (05/28/2024) Overall Financial Resource Strain (CARDIA) Difficulty of Paying Living Expenses: Not hard at all Food Insecurity: No Food Insecurity (05/28/2024) Hunger Vital Sign Worried About Running Out of Food in the Last Year: Never true Ran Out of Food in the Last Year: Not on file Transportation Needs: No Transportation Needs (05/28/2024) Transportation Lack of Transportation (Medical): No Lack of Transportation (Non-Medical): Not on file Physical Activity: Not on file Stress: Not on file Social Connections: Not on file Intimate Partner Violence: Unknown (05/28/2024) Humiliation, Afraid, Rape, and Kick questionnaire Fear of Current or Ex-Partner: No Emotionally Abused: Not on file Physically Abused: Not on file Sexually Abused: Not on file Housing Stability: Low Risk (05/28/2024) Housing Stability Vital Sign Unable to Pay for Housing in the Last Year: No Number of Times Moved in (more content not included)... Normal [facility] CONSULT -------- Attestation signed by Sarthak Reyes MD at 05/28/2024 4:32 PM The patient was seen and examined. Agree with assessment and plan. The patient is transferred from [facility] for the recent finding of melena and hematochezia. The patient is status post Whipple surgery for ampullary adenocarcinoma that was performed in 2018. Patient is hemodynamically stable. Plan for upper endoscopy and colonoscopy tomorrow to assess the source of the GI bleeding. Initial Gastroenterology/Hepatology Consultation Note IDENTIFYING DATA PATIENT: Rocio Jackson ADMIT DATE: 05/27/2024 TIME OF EVALUATION: 05/28/2024 8:15 AM Reason for Consult: GI bleeding Admitting Physician: Margot Hodgson* HISTORY OF PRESENT ILLNESS Rocio Jackson is a 68 y.o. 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 The patient is a poor historian and history was provided by medical team, chart and the patient himself. Patient presented to an outside hospital with a 3-day history of melena that turned out to maroon-colored stool on the last day for up to his presentation. His son took him to an outside hospital where he was found to be hypotensive and had a hemoglobin of 7.4. His last known baseline was around 10. Therefore, patient was transferred to our facility for GI evaluation as a case of GI bleed. Upon admission: Patient was tachycardic with a borderline blood pressure. He was transfused 1 unit of packed RBCs. CTAP with IV contrast done and showed focal transitional area and localized distal small bowel mucosal wall thickening and enhancement associated with this enteric swirling that can be likely due to bowel obstruction with ischemic/inflammatory or infectious etiology. It is worth mentioning that the patient was following up with [facility]. He had EGD and colonoscopy done in July 2023 for anemia and they were unremarkable. CTAP also done in August and February 2024 showed some mesenteric findings described as moderate lobular appearing wall thickening involving a segment of the small bowel in the right lower quadrant that were stable on prior exam August. GI HISTORY SUMMARY TABLE Last EGD Last colonoscopy Primary GI physician PAST MEDICAL, SURGICAL, FAMILY, and SOCIAL HISTORY Past Medical History: No past medical history on file. Past Surgical History: No past surgical history on file. Family History: No family history on file. Social History: Social History Tobacco Use Smoking status: Former Current packs/day: 0.00 Types: Cigarettes, Pipe Quit date: 1970 Years since quittin.9 Smokeless tobacco: Never Allergies: No Known Allergies MEDICATIONS Home Medications: Prior to Admission medications Not on File Current Medications: cefTRIAXone, 2 g, intravenous, q24h influenza, 0.5 mL, intramuscular, During hospitalization metroNIDAZOLE, 500 mg, intravenous, BID pantoprazole, 40 mg, intravenous, q24h DONNY PRNs: REVIEW OF SYSTEMS See HPI, otherwise ROS negative as below CONSTITUTIONAL: negative HEENT: negative RESPIRATORY: negative CARDIOVASCULAR: negative GASTROINTESTINAL: as in HPI GENITOURINARY: negative OBJECTIVE DATA Vitals: BP 102/70 Pulse 86 Temp 36.9 ???C (98.5 ???F) Resp 20 Ht 1.753 m (5' 9 ) Wt 60.5 kg (133 lb 6.1 oz) SpO2 98% BMI 19.70 kg/m??? GEN: Alert and oriented x3, NAD HEENT: Atraumatic, normocephalic CV: Regular rate and rhythm PULM: Breathing comfortably ABD: Soft, non-tender, non-distended NEURO: Moves all 4 extremities spontaneously LABS AND IMAGING CBC: Results from last 7 days Lab Units 05/28/24 0352 05/28/24 0117 05/27/242016 WBC AUTO 10*3/uL 3.40* 3.38* 3.15* RBC AUTO 10*6/uL 2.85* 2.67* 2.29* HEMOGLOBIN g/dL 9.3* 8.7* 7.8* HEMATOCRIT % 28.6* 26.4* 23.6* MCV fL 100.4* 98.9* 103.1* RDW % 17.2* 16.9* 14.8 PLATELETS AUTO 10*3/uL 115* 222 220 PT/INR BMP: Results from last 7 days Lab Units 05/28/24 0352 05/27/242016 SODIUM mmol/L 135* 137 POTASSIUM mmol/L 4.0 4.1 CHLORIDE mmol/L 109* 107 BUN mg/dL 32* 37* CREATININE mg/dL 0.46* 0.54* 0.54* EGFR mL/min/1.73m*2 115.4 109.9 109.9 GLUCOSE mg/dL 75 85 LFTs: Results from last 7 days Lab Units 05/28/24 035 BILIRUBIN TOTAL mg/dL 0.6 ALK PHOS U/L 90 AST U/L 14 ALT U/L 8 ALBUMIN g/dL 2.1* TOTAL PROTEIN g/dL 4.3* B12/Folate/Iron studies: No results found for: [id number] , FOLATE , IRON , TIBC , UIBC , IRONSAT , FERRITIN Viral Hepatitis No results found for: HEPAIGM , HAV , HEPBSAG , HEPBSAB , HEPBEAB , HEPB (more content not included)... Normal [facility] EDNURSon 05-28-2024 EDNURS 5154 Abhilash x 1881 Normal [facility] HEMOGLOBIN AND HEMATOCRIT, B LOODon 05-28-2024 Hematocrit (Bld) [Volume fraction] 31.4 % Low 39.0-55.0 [facility] Comment on above: Performed By: #### L [id number] #### [facility] ([facility]) [address] [place] [address] Hemoglobin (Bld) [Mass/Vol] 10.2 g/dL Low 13.0-17.0 [facility] Comment on above: Performed By: #### L [id number] #### [facility] ([facility]) [address] [place] [address] Hematocrit (Bld) [Volume fraction] 30.8 % Low 39.0-55.0 [facility] Comment on above: Performed By: #### L [id number] ####[facility] ([facility])[address] [place] [address] Hemoglobin (Bld) [Mass/Vol] 10.3 g/dL Low 13.0-17.0 [facility] Comment on above: Performed By: #### L [id number] ####[facility] ([facility])[address] [place] [address] Hematocrit (Bld) [Volume fraction] 29.9 % Low 39.0-55.0 [facility] Comment on above: Performed By: #### L [id number] ####[facility] ([facility])[address] [place] [address] Hemoglobin (Bld) [Mass/Vol] 10.1 g/dL Low 13.0-17.0 [facility] Comment on above: Performed By: #### L [id number] ####[facility] ([facility])[address] [place] [address] LACTIC ACID WITH 4 HOUR REFL EXon 05-28-2024 LACTATE (MMOL/L) IN SER/PLAS 0.6 mmol/L Normal 0.5-2.2 [facility] Comment on above: Performed By: #### L [id number] #### [facility] ([facility]) [address] [place] [address] POCT GLUCOSE METER UNSOLICIT ED RESULTSon 05-28-2024 Glucose [Mass/Vol] 86 mg/dL Normal 70-105 [facility] Comment on above: Order Comment: Waive d Testing in the ED is performed under the ED CLIA certificate #[id number]. Result Comment: ndub [email or web address] Performed By: #### L [id number] ####[facility] ([facility])[address] [place] [address] BASIC METABOLIC PANELon 04-30 Anion gap [Moles/Vol] 12 mmol/L Normal 7-20 [facility] Comment on above: Performed By: #### L [id number] #### [facility] ([facility]) [address] [place] [address] Calcium [Mass/Vol] 7.0 mg/dL Low 8.6-10.3 [facility] Comment on above: Performed By: #### L [id number] #### [facility] ([facility]) [address] [place] [address] Chloride [Moles/Vol] 107 mmol/L Normal 98-107 [facility] Comment on above: Performed By: #### L [id number] #### [facility] ([facility]) [address] [place] [address] CO2 [Moles/Vol] 22 mmol/L Normal 21-31 [facility] Comment on above: Performed By: #### L [id number] #### [facility] ([facility]) [address] [place] [address] Creatinine [Mass/Vol] 0.54 mg/dL Low 0.70-1.30 [facility] Comment on above: Performed By: #### L [id number] #### [facility] ([facility]) [address] [place] [address] Performed By: #### L [id number] #### [facility] ([facility]) [address] [place] [address] GLOMERULAR FILTRATION RATE ML/MIN/1.73 SQ M.PREDICTED 109.9 mL/min/1.73m*2 Normal >60.0 [facility] Comment on above: Result Comment: The [facility]???s estimated glomerular filtration rate (eGFR) will no longer include consideration of race in its calculation. The National Kid[employer] Foundation???s eGFR Task Force developed new recommendations for the estimation of the glomerular filtration rate in the [place] They recommend immediate implementation of the new equation refit without the race variable in all laboratories because the calculation does not include race. In addition to not including race in the calculation and reporting, it included diversity in its development, and has acceptable performance characteristics and potential consequences that do not disproportionately affect any one group of individuals. Performed By: #### L [id number] #### [facility] ([facility]) [address] [place] [address] Performed By: #### L [id number] #### [facility] ([facility]) [address] [place] [address] Glucose [Mass/Vol] 85 mg/dL Normal 70-100 [facility] Comment on above: Performed By: #### L [id number] #### [facility] ([facility]) [address] [place] [address] Potassium [Moles/Vol] 4.1 mmol/L Normal 3.5-5.1 [facility] Comment on above: Performed By: #### L [id number] #### [facility] ([facility]) [address] [place] [address] Sodium [Moles/Vol] 137 mmol/L Normal 136-145 [facility] Comment on above: Performed By: #### L [id number] #### [facility] ([facility]) [address] [place] [address] Urea nitrogen [Mass/Vol] 37 mg/dL High 7-25 [facility] Comment on above: Performed By: #### L [id number] #### [facility] ([facility]) [address] [place] [address] UREA NITROGEN/CREATININE (MASS RATIO) IN SER/PLAS 68.5 Normal [facility] Comment on above: Performed By: #### L [id number] #### [facility] ([facility]) [address] [place] [address] CBC WITH AUTO DIFFERENTIALon 05-27-2024 Basophils (Bld) [#/Vol] 0.00 10*3/uL Normal 0.00-0.20 [facility] Comment on above: Performed By: #### L [id number] #### [facility] ([facility]) [address] [place] [address] Basophils/100 WBC (Bld) 0.0 % Normal 0.0-1.0 [facility] Comment on above: Performed By: #### L [id number] #### [facility] ([facility]) [address] [place] [address] Eosinophils (Bld) [#/Vol] 0.03 10*3/uL Normal 0.00-0.50 [facility] Comment on above: Performed By: #### L [id number] #### [facility] ([facility]) [address] [place] [address] Eosinophils/100 WBC (Bld) 1.0 % Normal 0.0-6.0 [facility] Comment on above: Performed By: #### L [id number] #### [facility] ([facility]) [address] [place] [address] Erythrocyte distribution width (RBC) [Ratio] 14.8 % Normal 11.5-15.0 [facility] Comment on above: Performed By: #### L [id number] #### [facility] ([facility]) [address] [place] [address] ERYTHROCYTE MEAN CORPUSCULAR HEMOGLOBIN CONCENTRATION (G/DL) BY AUTOMATED 33.1 g/dL Normal 32.0-35.0 [facility] Comment on above: Performed By: #### L [id number] #### [facility] ([facility]) [address] [place] [address] Hematocrit (Bld) [Volume fraction] 23.6 % Low 39.0-55.0 [facility] Comment on above: Performed By: #### L [id number] #### [facility] ([facility]) [address] [place] [address] Hemoglobin (Bld) [Mass/Vol] 7.8 g/dL Low 13.0-17.0 [facility] Comment on above: Performed By: #### L [id number] #### [facility] ([facility]) [address] [place] [address] Immature granulocytes (Bld) [#/Vol] 0.02 10*3/uL Normal 0.00-0.20 [facility] Comment on above: Performed By: #### L [id number] #### [facility] ([facility]) [address] [place] [address] Immature granulocytes/100 WBC (Bld) 0.6 % Normal 0.0-1.0 [facility] Comment on above: Performed By: #### L [id number] #### [facility] ([facility]) [address] [place] [address] Lymphocytes (Bld) [#/Vol] 0.59 10*3/uL Low 1.20-4.00 [facility] Comment on above: Performed By: #### L [id number] #### [facility] ([facility]) [address] [place] [address] Lymphocytes/100 WBC (Bld) 18.7 % Low 20.0-45.0 [facility] Comment on above: Performed By: #### L [id number] #### [facility] ([facility]) [address] [place] [address] MCH (RBC) [Entitic mass] 34.1 pg High 27.0-33.0 [facility] Comment on above: Performed By: #### L [id number] #### [facility] ([facility]) [address] [address] MCV (RBC) [Entitic vol] 103.1 fL High 82.0-98.0 [facility] Comment on above: Performed By: #### L [id number] #### [facility] ([facility]) [address] [place] [address] Monocytes (Bld) [#/Vol] 0.33 10*3/uL Normal 0.10-1.00 [facility] Comment on above: Performed By: #### L [id number] #### [facility] ([facility]) [address] [place] [address] Monocytes/100 WBC (Bld) 10.5 % Normal 5.0-12.0 [facility] Comment on above: Performed By: #### L [id number] #### [facility] ([facility]) [address] [place] [address] Neutrophils (Bld) [#/Vol] 2.18 10*3/uL Normal 1.60-7.60 [facility] Comment on above: Performed By: #### L [id number] #### [facility] ([facility]) [address] [place] [address] Neutrophils/100 WBC (Bld) 69.2 % Normal 40.0-72.0 [facility] Comment on above: Performed By: #### L [id number] #### [facility] ([facility]) [address] [address] NRBC (PER 100 WBCS) BY AUTOMATED COUNT 0.0 % Normal 0 [facility] Comment on above: Performed By: #### L [id number] #### [facility] ([facility]) [address] [place] [address] PLATELETS (10*3/UL) IN BLOOD AUTOMATED COUNT 220 10*3/uL Normal 150-400 [facility] Comment on above: Performed By: #### L [id number] #### [facility] ([facility]) [address] [place] [address] RBC (Bld) [#/Vol] 2.29 10*6/uL Low 4.20-5.70 [facility] Comment on above: Performed By: #### L [id number] #### [facility] ([facility]) [address] [place] [address] WBC (Bld) [#/Vol] 3.15 10*3/uL Low 4.00-10.60 [facility] Comment on above: Performed By: #### L [id number] #### [facility] ([facility]) [address] [place] [address] CONSULTon 05-27-2024 CONSULT -------- Attestation signed by Florentino De León MD at 05/29/2024 11:17 AM Agree with assessment and plan Florentino De León MD Adult ICU Consultation Patient - Rocio Jackson Age - 68 y.o. - 1955 [facility] # - [id number] Date of Admission - 05/27/2024 7:12 PM Chief Complaint Acute GI bleed History of Present Illness Rocio Jackson is a 68 y.o. male with past medical history of hx of DM, HTN, CAD, s/p PCI, history of iron deficiency anemia, folate deficiency anemia, B12 deficiency anemia with stent placement, PSH of cholecystectomy, whipple procedure for duodenal mass 2015 presented to [facility] ED with chief complaint of lower GI bleed. Patient was transferred from outside hospital for hypotension, tachycardia, and blood in stool. When I saw the patient, patient already had received 1 unit PRBC, and was started on the 2nd unit. Hgb after 1st unit increased to 7.8, BUN is elevated, but no BERT. PMH: DM, HTN, CAD, s/p PCI, adenocarcinoma of ampulla of vater, iron deficiency anemia, folate deficiency anemia, B12 deficiency anemia PSH: cholecystectomy, whipple procedure for duodenal mass 2015 Alc/Tobacco/Drug: Patient has no history on file for alcohol use. has no history on file for tobacco use. has no history on file for drug use. Medications: Patient Current Facility-Administered Medications: sodium chloride 0.9 % infusion, 20 mL/hr, intravenous, Continuous, Aamir Luciano DO, Last Rate: 20 mL/hr at 05/27/242251, 20 mL/hr at 05/27/242251 No current outpatient medications on file. Allergies: Patient Patient has no known allergies. Family history: Patient family history is not on file. Review of Systems: Review of Systems Negative except per HPI Physical Exam Ht Readings from Last 1 Encounters: 05/27/24 1.753 m (5' 9 ) Wt Readings from Last 1 Encounters: 05/27/24 63.5 kg (140 lb) height is 1.753 m (5' 9 ) and weight is 63.5 kg (140 lb). His temperature is 37.2 ???C (99 ???F). His blood pressure is 92/58 and his pulse is 100. His respiration is 18 and oxygen saturation is 98%. Intake/Output Summary (Last 24 hours) at 05/27/2024 2319 Last data filed at 05/27/2024 2228 Gross per 24 hour Intake 350 ml Output -- Net 350 ml Respiratory Source: @RESPSOURCE@ Physical Exam Constitutional: Appearance: He is normal weight. He is ill-appearing. HENT: Mouth/Throat: Mouth: Mucous membranes are moist. Pharynx: Oropharynx is clear. Eyes: Extraocular Movements: Extraocular movements intact. Conjunctiva/sclera: Conjunctivae normal. Pupils: Pupils are equal, round, and reactive to light. Cardiovascular: Rate and Rhythm: Normal rate. Rhythm irregular. Skin: Capillary Refill: Capillary refill takes less than 2 seconds. Neurological: Mental Status: He is alert. Psychiatric: Mood and Affect: Mood normal. Behavior: Behavior normal. Thought Content: Thought content normal. Judgment: Judgment normal. Physical Examination: Vitals: 05/27/24 2243 BP: 92/58 Pulse: 100 Resp: 18 Temp: 37.2 ???C (99 ???F) SpO2: Constitutional: Vitals reviewed, not in distress HEENT: Normocephalic, Atraumatic, Moist oral mucosa Eyes: Clear conjunctiva, Pupils reactive to light Neck: Supple, No thyromegaly CV: Normal Rate and Rhythm, No murmur, No pedal edema Chest/Pulm: Normal respiratory effort, Lungs clear to auscultation Abdomen: Mild diffuse tenderness Musculoskeletal: No clubbing or cyanosis, Normal ROM in head and neck, Lymph Nodes: no cervical adenopathy noted Skin: Warm, No rash Neuro: A&Ox3 ASSESSMENT Acute GI bleed, likely lower, although BUN in mildly elevated, assume elevation is secondary to dehydration and pre-renal azotemia more than upper GI bleed Acute colitis, likely infectious Acute blood loss anemia History of diabetes mellitus Essential Hypertension Diabetes mellitus Ampulla of vater adenocarcinoma, status post whipple procedure 2016 - patient underwent chemotherapy and biologic therapy in 2018 Paroxysmal atrial fibrillation of Eliquis Mixed HLD History of GA in 2011, status post [employer] Monitor vital signs Patient is an appropriate admission to step down unit Trend H&H q6h, transfuse to keep Hgb > 8 Vital signs improved post transfusion of 1 unit of PRBC Check TTE, troponin and BNP Advise to start case monitor Would start patient on rocephin and flagyl for colitis treatment Give a bolus of IV fluids Consult to gastroenterology Hold of dvt chemo prophylaxis Hold home dose eliquis Start Protonix 40 every day Established bilateral peripheral large bore IV venous access Thank you for your consultation. Don't hesitate to contact [facility]U for any questions. Ford Sun MD Pulmonary & Critical Care [facility] (more content not included)... Normal [facility] CT ABDOMEN PELVIS W IV CONTR Elana 05-27-2024 CT ABDOMEN PELVIS W IV CONTRAST CT ABDOMEN PELVIS W IV CONTRAST 05/27/2024 9:42 PM CLINICAL INDICATION: GI bleed with hypotension and tachycardia TECHNIQUE: Multiple detector CT axial slices of the abdomen and pelvis were obtained with IV contrast. Multiplanar reformats were performed and viewed on a separate workstation and reviewed to further define anatomy and possible pathology. All CT scans at this facility use dose modulation, iterative reconstruction, and/or weight based dosing when appropriate to reduce radiation dose to as low as reasonably achievable COMPARISON: Same day exam at 11:53 AM FINDINGS: There is severe coronary artery calcifications with no gross cardiomegaly or pericardial effusion. There are a few calcified infracarinal lymph nodes likely benign granulomas. Evaluation is compromised by motion artifact. There is mild pneumobilia with surgical changes of cholecystectomy. Otherwise liver parenchyma is unremarkable. Spleen and both adrenal glands are unremarkable. There is diffuse pancreatic atrophy with numerous pancreatic duct dilatation. Both kidneys are grossly unremarkable as left-sided extrarenal pelvis. Urinary bladder is adequately distended and grossly unremarkable. There is significantly abnormal exam primarily of the distal small bowel loops with localized area of swirling mesentery and coarse mucosal wall thickening with localized obstruction and dilatation of the proximal bowel loops. Findings could be sequelae of ischemic, inflammatory or infectious etiology. Clinical correlation is advised. The remaining bowel loops are grossly unremarkable. There are a few nonspecific mesenteric lymph nodes likely reactive basis [place] is grossly pathological by size criteria. There is moderate intimal calcification of the abdominal aorta. Celiac trunk, SMA and renal vessels are widely patent. Portal vessels are widely patent and grossly unremarkable. There are small bilateral hydroceles. IMPRESSION: Abnormal exam with focal transitional area and localized distal small bowel mucosal wall thickening and enhancement associated with mesenteric swirling. Findings are likely sequelae of bowel obstruction with ischemic, inflammatory or infectious etiology. There is stable mild pneumobilia Electronically signed: Donny Valadez. Normal [facility] EDNURSon 05-27-2024 EDNURS Ems states pt was di rect admit from [facility] and started decompessating in route and needed to be reevaluated. Normal [facility] EDPROVon 05-27-2024 EDPROV History of Present I llness Chief Complaint Patient presents with ??? Shortness of Breath Patient presents today with concern for lower GI bleed. He was seen at an outside hospital and was in the process of being transferred to [facility] as a direct admission. However during transport patient reportedly became hypotensive and tachycardic despite receiving 1 unit of blood. He currently denies dizziness, headache, chest pain, shortness of breath, or abdominal pain. He endorses continued lower GI bleed. [place] Coma Scale Score: 15 History No past medical history on file. No past surgical history on file. No family history on file. Social History Tobacco Use ??? Smoking status: Not on file ??? Smokeless tobacco: Not on file Substance Use Topics ??? Alcohol use: Not on file ??? Drug use: Not on file Review of Systems Review of Systems Constitutional: Negative for chills and fever. HENT: Negative for congestion and rhinorrhea. Respiratory: Negative for cough and shortness of breath. Cardiovascular: Negative for chest pain and palpitations. Gastrointestinal: Positive for blood in stool. Negative for nausea and vomiting. Neurological: Negative for dizziness and headaches. Physical Exam ED Triage Vitals [05/27/24 1916] Temp Heart Rate Resp BP 37.6 ???C (99.7 ???F) (!) 143 23 (!) 115/96 SpO2 Temp Source Heart Rate Source Patient Position 100 % Oral Monitor Lying BP Location FiO2 (%) Right arm -- Physical Exam Vitals and nursing note reviewed. Constitutional: Appearance: He is not toxic-appearing. Eyes: Extraocular Movements: Extraocular movements intact. Pupils: Pupils are equal, round, and reactive to light. Cardiovascular: Rate and Rhythm: Regular rhythm. Tachycardia present. Pulmonary: Effort: Pulmonary effort is normal. No tachypnea. Breath sounds: No decreased breath sounds. Musculoskeletal: Right lower leg: No tenderness. No edema. Left lower leg: No tenderness. No edema. Skin: General: Skin is warm. Coloration: Skin is pale. Neurological: Mental Status: He is alert. Procedures ED Course & MDM ED Course as of 05/28/24 1649 ThuMay 27, 2024 2344 Patient was tachycardic and hypotensive initially after arrival. patient received 1 L of IV fluid and 1 unit of RBC prior to arrival. Patient was discussed with the hospitalist who asked that the ICU admit this patient. The ICU asked that we give the patient 2 more units of RBC. After administration of RBC the vital signs stabilized and ICU stated he no longer needs ICU admission. Patient was discussed with the hospitalist for admission. [TS] ED Course User Index [TS] Aamir Luciano DO Diagnoses as of 05/28/24 1649 GI bleed Medical Decision Making 2022 Emergency Medicine Coding Guide from [employer] on 05/28/2024 All calculations should be rechecked by clinician prior to use RESULT SUMMARY: 5 Estimated Level of Service Problems: Moderate (4) Risk: High (5) Data: Extensive (5) NARRATIVE MDM: This patient's problem complexity is Moderate as patient: has a new undiagnosed problem with uncertain prognosis but that could be serious. This patient's risk is High due to: overall presentation requiring evaluation for a potentially High-risk process. This patient's data complexity is Extensive due to: -multiple tests ordered/reviewed -independent interpretation of imaging or EKG -discussion of management/testing with external professional INPUTS: Number and Complexity --> 5 = 4: undiagnosed new problem, uncertain outcome (e) Risk level --> 4 = High Tests ordered --> 3 = >=3 Tests results reviewed (excluding labs) --> 3 = >=3 Prior external notes reviewed --> 0 = 0 Assessment requiring and independent historian --> 0 = No Independent interpretation of tests --> 1 = Yes Discussed management/test interpretation w/external professional --> 1 = Yes Attestion As the teaching physician, I have personally performed or re-performed the history of present illness, physical exam and medical decision-making activities of the encounter and verified the resident's documentation. I made pertinent changes as necessary to ensure accurate documentation. Chief complaint: anemia, GI bleed, hypotensive and tachycardic Aamircynthia Gilliamclark, DO FreitasAamircynthia Luciano, DO 05/28/24 1649 Normal [facility] TROPONIN Ion 05-27-2024 Troponin I.cardiac [Mass/Vol] 0.00 ng/mL Normal 0.00-0.04 [facility] Comment on above: Performed By: #### L [id number] ####[facility] ([facility]AK[facility])[address] [place] [address] TYPE AND SCREENon 05-27-2024 AB SCREEN Negative Normal [facility] Comment on above: Performed By: #### L [id number] #### [facility] B[facility] , ABO group Nom (Bld) A [facility] Comment on above: Performed By: #### L [id number] #### [facility]OD [facility] , RH TYPE IN BLOOD Positive Normal [facility] Comment on above: Performed By: #### L [id number] #### [facility]OD [facility] , CNNURSEon 04-28-2024 CNNURSE Nurse Visit (HEMASA) ROCIO JACKSON ([id number]) 1955 M Date Time Provider Department 04/28/24 2:45 PM [facility] NURSE ZELALEM POOL During your visit today, we recorded the following information about you: Temperature Pulse Respiration Blood pressure 97 degrees 106/minute 18/minute 78/50 Livier Seay MA 04/28/2024 2:55 PM Signed Patient Identification confirmed: yes. Injection given and documented on AUG per provider order. Livier Seay MA Referring Provider: ZAHRA MAY [[id number]] Allergies As of Date: 04/28/2024 (No Known Allergies) Date Reviewed: 04/01/2024 Reviewed by: Rola Gordon APRN.LUMBER TAILER - Fully Assessed Primary Visit Diagnosis:Cancer of [...] as designated per enteric contrast guidelines - wyhnnh-jnorltba-bdcrchr (ZENPEP) 25,000-79,000- 105,000 unit delayed release capsule Take 2 capsules by mouth three times a day with meals. - ebwwxr-etkuwknf-xmmvews (CREON 24) 24,000-76,000 -120,000 unit delayed release [...] *09/10/2023 Visit Notes: >> Livier Seay MA [facility] Apr 28, 2024 2:52 PM Status: Signed Patient Identification confirmed: yes. Injection given and documented on AUG per provider order. Livier Seay MA Prescriptions ordered this encounter Disp Refills Start End CYANOCOBALAMIN (VIT B-12) 1,000 MCG/* 04/28/2024 04/28/2024 Route: INTRAMUSCULA Encounter Status:Closed by LIVIER SEAY [facility] ([facility] ROCIO JACKSON ([id number]) 1955 M Date Time Provider Department 03/31/24 2:30 PM [facility] NURSE ZELALEM HART HEMCANDIE During your visit today, we recorded the following information about you: Srinivasan See MA 03/31/2024 2:45 PM Signed Patient Identification confirmed: yes. Injection given and documented on AUG per provider order. Srinivasan See MA Referring Provider: ZAHRA MAY [[id number]] Allergies As of Date: 03/31/2024 (No Known [...] three times a day with meals. - sdzute-qgopkidy-vmqpaxm (ZENPEP) 25,000-79,000- 105,000 unit delayed release capsule Take 2 capsules by mouth three times a day with meals. - jjxjgd-xwlaeihy-plnkftt (CREON 24) 24,000-76,000 -120,000 unit delayed release [...] *09/10/2023 Visit Notes: >> Srinivasan See MA [facility] Mar 31, 2024 2:43 PM Status: Signed Patient Identification confirmed: yes. Injection given and documented on AUG per provider order. Srinivasan See MA Prescriptions ordered this encounter Disp Refills Start End CYANOCOBALAMIN (VIT B-12) 1,000 MCG/* 03/31/2024 03/31/2024 Route: INTRAMUSCULA Encounter Status:Closed by SRINIVASAN SEE on 03/31/24 [facility] CNOVSPon 03-10-2024 OVSP Visit (SP) Office ([facility]) ROCIO JACKSON ([id number]) 1955 M Date Time Provider Department 03/10/24 2:30 PM ZAHRA MAY During your visit today, we recorded the following information about you: Temperature Pulse Respiration Blood pressure 97.7 degrees 79/minute 16/minute 98/66 Zahra May MD 03/12/2024 8:26 AM Signed NAME: Rocio Jackson CLINIC NO.: [id number] DATE OF SERVICE: March 10, 2024 (viviana) Some elements in this clinic note that [...] likely infec (more content not included)... Normal [facility] CA 19-9on 03-04-2024 Cancer Ag 19-9 Qn 18.0 [arb'U]/mL NINF - 36.0 U/mL [facility] Comment on above: Cancer antigen 19-9 test is used as an aid in monitoring response to treatment or recurrence in patients with established pancreatic, hepatobiliary, or gastrointestinal malignancies. Clinical correlation is required. The CA 19-9 Antigen test was performed using the [employer] DXI paramagnetic particle chemiluminescent immunoassay method. [...] any questions regarding this interpretation, please call [phone]. If you are unable to reach us at the number above, please feel free to contact [facility] eRadiology at [phone]. DIVISION OF RADIOLOGY * * *Final Report* * * DATE OF EXAM: Mar 03 2024 2:36PM [facility] 0530 - CT ABD/PEL W IVCON / [...] additional findings. DIVISION OF RADIOLOGY Provider, Danette Figueroa [facility] - 03/04/2024 * * *Final Report* * * DATE OF EXAM: Mar 03 2024 2:36PM [facility] 0530 - CT ABD/PEL W IVCON / [...] any questions regarding this interpretation, please call [phone]. If you are unable to reach us at the number above, please feel free to contact [facility] eRadiology at [phone]. [facility] CT Abdomen and Pelvis W cont rast IVOrdered By: Ccf Provider on 03-04-[address] [facility] [address] Chest W contrast Petty IMPRESSION: No CT evidence of metastatic disease in the chest. Transcribe Date/Time: Mar 04 2024 11:43A Dictated by: DANIELLE LOIVA MD This examination was interpreted and the report reviewed and electronically signed by: DANIELLE OLIVA MD on Mar 04 2024 11:50AM EST Thank you for allowing us to participate in the care of your patient. Should there be any questions regarding this interpretation, please call [phone]. If you are unable to reach us at the number above, please feel free to contact [facility] eRadiology at [phone]. DIVISION OF RADIOLOGY * * *Final Report* * * DATE OF EXAM: Mar 03 2024 2:36PM [facility] 0539 - CT CHEST W IVCON / [...] DIVISION OF RADIOLOGY Provider, Danette Hinkle - 03/04/2024 * * *Final Report* * * DATE OF EXAM: Mar 03 2024 2:36PM [facility] 0539 - CT CHEST W IVCON / [...] any questions regarding this interpretation, please call [phone]. If you are unable to reach us at the number above, please feel free to contact [facility] at [phone]. [facility] Cancer Ag 19-9 Qnon 03-04-20 Interpretation and review of laboratory results Normal [facility] Cobalamin (Vitamin B12) [Mas s/Vol]on 03-04-2024 Interpretation and review of laboratory results Normal [facility] FERRITINon 03-04-2024 Ferritin [Mass/Vol] 647.0 ng/mL High 30.3 - 565.7 ng/mL [facility] Ferritin [Mass/Vol]on 2023 Interpretation and review of laboratory results Abnormal [facility] Iron and Iron binding capaci ty panelon 03-04-2024 Iron [Mass/Vol] 42 ug/dL 41 - 186 ug/dL [facility] Iron binding capacity [Mass/Vol] [facility] Comment on above: Unable to calculate due to hemolysis. Iron/TIBC [Molar ratio] [facility] Comment on above: Unable to calculate due to hemolysis. [facility] VITAMIN B12on 03-04-2024 Cobalamin (Vitamin B12) [Mass/Vol] 979 pg/mL 232 - 1245 pg/mL [facility] Basophils Auto (Bld) [#/Vol] on 03-03-2024 Basophils (Bld) [#/Vol] Automated basophil count <0.11 [facility] Basophils/100 WBC Auto (Bld) on 03-03-2024 Basophils/100 WBC (Bld) Automated basophil % [facility] Blood manual differential co mment interpretation narrativeon 03-03-2024 Manual differential comment Evgeny (Bld) [Interp] Blood manual differential comment interpretation narrative [facility] CBC W Auto Differential pane l (Bld)on 03-03-2024 Basophils (Bld) [#/Vol] [facility] Basophils/100 WBC (Bld) 0.3 % [facility] Differential cell count method Nom (Bld) Auto [facility] Eosinophils (Bld) [#/Vol] 0.09 10*3/uL [facility] Eosinophils/100 WBC (Bld) 2.6 % [facility] Erythrocyte distribution width (RBC) [Ratio] 13.0 % 11.5 - 15.0 % [facility] Hematocrit (Bld) [Volume fraction] 30.8 % Low 39.0 - 51.0 % [facility] Hemoglobin (Bld) [Mass/Vol] 10.4 g/dL Low 13.0 - 17.0 g/dL [facility] Immature granulocytes (Bld) [#/Vol] NINF [facility] Immature granulocytes/100 WBC (Bld) 0.3 % [facility] Interpretation and review of laboratory results Abnormal [facility] Lymphocytes (Bld) [#/Vol] 0.79 10*3/uL Low [facility] Lymphocytes/100 WBC (Bld) 22.4 % [facility] MCH (RBC) [Entitic mass] 35.5 pg High 26.0 - 34.0 pg [facility] MCHC (RBC) [Mass/Vol] 33.8 g/dL 30.5 - 36.0 g/dL [facility] MCV (RBC) [Entitic vol] 105.1 fL High 80.0 - 100.0 fL [facility] Monocytes (Bld) [#/Vol] 0.26 10*3/uL [facility] Monocytes/100 WBC (Bld) 7.4 % [facility] Neutrophils (Bld) [#/Vol] 2.36 10*3/uL [facility] Neutrophils/100 WBC (Bld) 67.0 % [facility] Nucleated RBC (Bld) [#/Vol] NINF [facility] Nucleated RBC/100 WBC (Bld) [Ratio] 0.0 % /100 WBC [facility] Platelet mean volume (Bld) [Entitic vol] 8.8 fL Low 9.0 - 12.7 fL [facility] Platelets (Bld) [#/Vol] 284 10*3/uL [facility] RBC (Bld) [#/Vol] 2.93 10*6/uL Low 4.20 - 6.00 m/uL [facility] WBC (Bld) [#/Vol] 3.52 10*3/uL Low [facility] Basophils (Bld) [#/Vol] 10*3/uL Normal <0.11 [facility] Comment on above: Order Comment: Speci men Type: BLOOD SPECIMENOrdering Facility: [facility] Address: [address] [place] [address] Performed By: #### 5 7021-8 ####[facility] LABCLIA [id number] [place] [address] Basophils/100 WBC (Bld) 0.3 % Normal [facility] Comment on above: Order Comment: Speci men Type: BLOOD SPECIMENOrdering Facility: [facility] Address: [address] [place] [address] Performed By: #### 5 7021-8 ####[facility] LABCLIA [id number] [place] [address] Differential cell count method Nom (Bld) Auto Normal [facility] Comment on above: Order Comment: Speci men Type: BLOOD SPECIMENOrdering Facility: [facility] Address: [address] [place] [address] Performed By: #### 5 7021-8 ####[facility] LABCLIA [id number] [place] [address] Eosinophils (Bld) [#/Vol] 0.09 10*3/uL Normal <0.46 [facility] Comment on above: Order Comment: Speci men Type: BLOOD SPECIMENOrdering Facility: [facility] Address: [address] [place] [address] Performed By: #### 5 7021-8 ####[facility] LABCLIA [id number] [place] [address] Eosinophils/100 WBC (Bld) 2.6 % Normal [facility] Comment on above: Order Comment: Speci men Type: BLOOD SPECIMENOrdering Facility: [facility] Address: [address] [place] [address] Performed By: #### 5 7021-8 ####[facility] LABCLIA [id number] [place] [address] Erythrocyte distribution width (RBC) [Ratio] 13.0 % Normal 11.5-15.0 [facility] Comment on above: Order Comment: Speci men Type: BLOOD SPECIMENOrdering Facility: [facility] Address: [address] [place] [address] Performed By: #### 5 7021-8 ####[facility] LABCLIA [id number] [place] [address] Hematocrit (Bld) [Volume fraction] 30.8 % Low 39.0-51.0 [facility] Comment on above: Order Comment: Speci men Type: BLOOD SPECIMENOrdering Facility: [facility] Address: [address] [place] [address] Performed By: #### 5 7021-8 ####[facility] LABCLIA [id number] [place] [address] Hemoglobin (Bld) [Mass/Vol] 10.4 g/dL Low 13.0-17.0 [facility] Comment on above: Order Comment: Speci men Type: BLOOD SPECIMENOrdering Facility: [facility] Address: [address] [place] [address] Performed By: #### 5 7021-8 ####[facility] LABCLIA [id number] [place] [address] Immature granulocytes (Bld) [#/Vol] 10*3/uL Normal <0.10 [facility] Comment on above: Order Comment: Speci men Type: BLOOD SPECIMENOrdering Facility: [facility] Address: [address] [place] [address] Performed By: #### 5 7021-8 ####[facility] LABCLIA [id number] [place] [address] Immature granulocytes/100 WBC (Bld) 0.3 % Normal [facility] Comment on above: Order Comment: Speci men Type: BLOOD SPECIMENOrdering Facility: [facility] Address: [address] [place] [address] Performed By: #### 5 7021-8 ####[facility] LABCLIA [id number] [place] [address] Lymphocytes (Bld) [#/Vol] 0.79 10*3/uL Low 1.00-4.00 [facility] Comment on above: Order Comment: Speci men Type: BLOOD SPECIMENOrdering Facility: [facility] Address: [address] [place] [address] Performed By: #### 5 7021-8 ####[facility] LABCLIA [id number] [place] [address] Lymphocytes/100 WBC (Bld) 22.4 % Normal [facility] Comment on above: Order Comment: Speci men Type: BLOOD SPECIMENOrdering Facility: [facility] Address: [address] [place] [address] Performed By: #### 5 7021-8 ####[facility] LABCLIA [id number] [place] [address] MCH (RBC) [Entitic mass] 35.5 pg High 26.0-34.0 [facility] Comment on above: Order Comment: Speci men Type: BLOOD SPECIMENOrdering Facility: [facility] Address: [address] [place] [address] Performed By: #### 5 7021-8 ####[facility] LABCLIA [id number] [place] [address] MCHC (RBC) [Mass/Vol] 33.8 g/dL Normal 30.5-36.0 [facility] Comment on above: Order Comment: Speci men Type: BLOOD SPECIMENOrdering Facility: [facility] Address: [address] [place] [address] Performed By: #### 5 7021-8 ####[facility] LABCLIA [id number] [place] [address] MCV (RBC) [Entitic vol] 105.1 fL High 80.0-100.0 [facility] Comment on above: Order Comment: Speci men Type: BLOOD SPECIMENOrdering Facility: [facility] Address: [address] [place] [address] Performed By: #### 5 7021-8 ####[facility] LABCLIA [id number] [place] [address] Monocytes (Bld) [#/Vol] 0.26 10*3/uL Normal <0.87 [facility] Comment on above: Order Comment: Speci men Type: BLOOD SPECIMENOrdering Facility: [facility] [facility] Address: [address] [place] [address] Performed By: #### 5 7021-8 ####[facility] LABCLIA [id number] [place] [address] Monocytes/100 WBC (Bld) 7.4 % Normal [facility] Comment on above: Order Comment: Speci men Type: BLOOD SPECIMENOrdering Facility: [facility] Address: [address] [place] [address] Performed By: #### 5 7021-8 ####[facility] LABIA [id number] [place] [address] Neutrophils (Bld) [#/Vol] 2.36 10*3/uL Normal 1.45-7.50 [facility] Comment on above: Order Comment: Speci men Type: BLOOD SPECIMENOrdering Facility: [facility] Address: [address] [place] [address] Performed By: #### 5 7021-8 ####[facility] LABCLIA [id number] [place] [address] Neutrophils/100 WBC (Bld) 67.0 % Normal [facility] Comment on above: Order Comment: Speci men Type: BLOOD SPECIMENOrdering Facility: [facility] Address: [address] [place] [address] Performed By: #### 5 7021-8 ####[facility] LABIA [id number] [place] [address] Nucleated RBC (Bld) [#/Vol] 10*3/uL Normal <0.01 [facility] Comment on above: Order Comment: Speci men Type: BLOOD SPECIMENOrdering Facility: [facility] Address: [address] [place] [address] Performed By: #### 5 7021-8 ####[facility] LABCLIA [id number] [place] [address] Nucleated RBC/100 WBC (Bld) [Ratio] 0.0 /100 WBC Normal [facility] Comment on above: Order Comment: Speci men Type: BLOOD SPECIMENOrdering Facility: [facility] Address: [address] [place] [address] Performed By: #### 5 7021-8 ####[facility] LABCLIA [id number] [place] [address] Platelet mean volume (Bld) [Entitic vol] 8.8 fL Low 9.0-12.7 [facility] Comment on above: Order Comment: Speci men Type: BLOOD SPECIMENOrdering Facility: [facility] Address: [address] [place] [address] Performed By: #### 5 7021-8 ####[facility] LABCLIA [id number] [place] [address] Platelets (Bld) [#/Vol] 284 10*3/uL Normal 150-400 [facility] Comment on above: Order Comment: Speci men Type: BLOOD SPECIMENOrdering Facility: [facility] Address: [address] [place] [address] Performed By: #### 5 7021-8 ####[facility] LABCLIA [id number] [place] [address] RBC (Bld) [#/Vol] 2.93 10*6/uL Low 4.20-6.00 [facility] Comment on above: Order Comment: Speci men Type: BLOOD SPECIMENOrdering Facility: [facility] Address: [address] [place] [address] Performed By: #### 5 7021-8 ####[facility] LABCLIA [id number] [place] [address] WBC (Bld) [#/Vol] 3.52 10*3/uL Low 3.70-11.00 [facility] Comment on above: Order Comment: Speci men Type: BLOOD SPECIMENOrdering Facility: [facility] Address: [address] [place] [address] Performed By: #### 5 7021-8 ####[facility] LABCLIA [id number] [place] [address] CNNURSEon 03-03-2024 [facility] Nurse Visit (HEMASA) ROCIO JACKSON ([id number]) 1955 M Date Time Provider Department 03/03/24 2:00 PM [facility] NURSE [place]EL[place] POOL During your visit today, we recorded the following information about you: Pulse Respiration Blood pressure 80/minute 20/minute 95/66 Livier Seay MA 03/03/2024 12:57 PM Signed Patient Identification confirmed: yes. Injection given and documented on AUG per provider order. Livier Seay MA Referring Provider: ZAHRA MAY [[id number]] Allergies As of Date: 03/03/2024 (No Known Allergies) Date Reviewed: 02/10/2024 Reviewed by: Leila Wagner PA-C - Fully [...] three times a day with meals. - uvoweu-rqmqjsyd-rehppsl (ZENPEP) 25,000-79,000- 105,000 unit delayed release capsule Take 2 capsules by mouth three times a day with meals. - somaqy-codavbux-ukowrtf (CREON 24) 24,000-76,000 -120,000 unit delayed release [...] *09/10/2023 Visit Notes: >> Livier Seay MA [facility] Mar 03, 2024 12:56 PM Status: Signed Patient Identification confirmed: yes. Injection given and documented on AUG per provider order. Livier Seay MA Prescriptions ordered this encounter Disp Refills Start End CYANOCOBALAMIN (VIT B-12) 1,000 MCG/* 03/03/2024 03/03/2024 Route: INTRAMUSCULA Encounter Status:Closed by LIVIER SEAY on 03/03/24 Normal [facility] CT ABD/PEL W IVCONon 024 CT ABD/PEL W IVCON * * *Final Report* * * DATE OF EXAM: Mar 03 2024 2:36PM [facility] 0530 - CT ABD/PEL W IVCON / [...] any questions regarding this interpretation, please call [phone]. If you are unable to reach us at the number above, please feel free to contact [facility] at [phone]. [id number] Normal [facility] CT CHEST W IVCONon CT CHEST W IVCON * * *Final Report* * * DATE OF EXAM: Mar 03 2024 2:36PM [facility] 0539 - CT CHEST W IVCON / [...] any questions regarding this interpretation, please call [phone]. If you are unable to reach us at the number above, please feel free to contact [facility] at [phone]. [id number] Normal [facility] Cancer Ag19-9 SerPl-aCncon 0 03-03-2024 Cancer Ag 19-9 Qn 18.0 [arb'U]/mL Normal <36.0 Cl [facility] Comment on above: Order Comment: Speci men Type: BLOOD SPECIMENOrdering Facility: [facility] Address: [address] [place] [address] Result Comment: [facility] er antigen 19-9 test is used [...] used interchangeably. Performed By: #### 2 4108-3 ####[facility] LABCLIA [id number] [place] [address] [place] Comprehensive metabolic 2000 panelOrdered By: Olga Cornejo on 03-03-2024 Albumin [Mass/Vol] 2.9 g/dL Low 3.9 - 4.9 g/dL [facility] ALP [Catalytic activity/Vol] 181 U/L High 38 - 113 U/L [facility] ALT [Catalytic activity/Vol] 17 U/L 10 - 54 U/L [facility] Anion gap [Moles/Vol] 7 mmol/L Low 8 - 15 mmol/L [facility] AST [Catalytic activity/Vol] 18 U/L 14 - 40 U/L [facility] Bilirubin [Mass/Vol] 0.4 mg/dL 0.2 - 1 .3 mg/dL [facility] Calcium [Mass/Vol] 8.2 mg/dL Low 8.5 - 10. 2 mg/dL [facility] Chloride [Moles/Vol] 109 mmol/L High 98 - 10 7 mmol/L [facility] CO2 [Moles/Vol] 24 mmol/L 22 - 30 mmol/L [facility] Creatinine [Mass/Vol] 0.62 mg/dL Low 0.73 - 1.22 mg/dL [facility] GFR/1.73 sq M.predicted among non-blacks MDRD (S/P/Bld) [Vol rate/Area] 105 mL/min/{1.73_m2} - PINF [facility] Comment on above: Estimated Glomerular Filtration Rate [...] [Mass/Vol] 87 mg/dL 74 - 99 mg/dL [facility] Comment on above: The [place] Diabete s Association (ADA) provides guidance for [...] Standards of Medical Care in Diabetes 2016, [place] [employer]. Diabetes Care. 2016.39(Suppl 1). Interpretation and review of laboratory results Abnormal [facility] Potassium [Moles/Vol] 4.4 mmol/L 3.7 - 5.1 mmol/L [facility] Protein [Mass/Vol] 5.4 g/dL Low 6.3 - 8.0 g/dL [facility] Sodium [Moles/Vol] 140 mmol/L 136 - 144 mmol/L [facility] Urea nitrogen [Mass/Vol] 22 mg/dL 9 - 24 mg/dL [facility] Comprehensive metabolic 2000 panelon 03-03-2024 Albumin [Mass/Vol] 2.9 g/dL Low 3.9-4.9 [facility] Comment on above: Order Comment: Speci men Type: BLOOD SPECIMENOrdering Facility: [facility] Address: [address] [place] [address] Performed By: #### 2 4323-8 ####[facility] LABCLIA [id number] [place] [address] ALP [Catalytic activity/Vol] 181 U/L High 38-113 [facility] Comment on above: Order Comment: Speci men Type: BLOOD SPECIMENOrdering Facility: [facility] Address: [address] [place] [address] Performed By: #### 2 4323-8 ####[facility] LABCLIA [id number] [place] [address] ALT [Catalytic activity/Vol] 17 U/L Normal 10-54 [facility] Comment on above: Order Comment: Speci men Type: BLOOD SPECIMENOrdering Facility: [facility] Address: [address] [place] [address] Performed By: #### 2 4323-8 ####[facility] LABCLIA [id number] [place] [address] Anion gap [Moles/Vol] 7 mmol/L Low 8-15 [facility] Comment on above: Order Comment: Speci men Type: BLOOD SPECIMENOrdering Facility: [facility] Address: [address] [place] [address] Performed By: #### 2 4323-8 ####[facility] LABCLIA [id number] [place] [address] AST [Catalytic activity/Vol] 18 U/L Normal 14-40 [facility] Comment on above: Order Comment: Speci men Type: BLOOD SPECIMENOrdering Facility: [facility] Address: [address] [place] [address] Performed By: #### 2 4323-8 ####[facility] LABCLIA [id number] [place] [address] Bilirubin [Mass/Vol] 0.4 mg/dL Normal 0.2-1.3 [facility] Comment on above: Order Comment: Speci men Type: BLOOD SPECIMENOrdering Facility: [facility] Address: [address] [place] [address] Performed By: #### 2 4323-8 ####[facility] LABCLIA [id number] [place] [address] Calcium [Mass/Vol] 8.2 mg/dL Low 8.5-10.2 [facility] Comment on above: Order Comment: Speci men Type: BLOOD SPECIMENOrdering Facility: [facility] Address: [address] [place] [address] Performed By: #### 2 4323-8 ####[facility] LABCLIA [id number] [place] [address] Chloride [Moles/Vol] 109 mmol/L High 98-107 [facility] Comment on above: Order Comment: Speci men Type: BLOOD SPECIMENOrdering Facility: [facility] Address: [address] [place] [address] Performed By: #### 2 4323-8 ####[facility] LABCLIA [id number] [place] [address] CO2 [Moles/Vol] 24 mmol/L Normal 22-30 [facility] Comment on above: Order Comment: Speci men Type: BLOOD SPECIMENOrdering Facility: [facility] Address: [address] [place], [place] [address] Performed By: #### 2 4323-8 ####[facility] LABCLIA [id number] [place] [address] Creatinine [Mass/Vol] 0.62 mg/dL Low 0.73-1.22 [facility] Comment on above: Order Comment: Speci men Type: BLOOD SPECIMENOrdering Facility: [facility] Address: [address] [place] [address] Performed By: #### 2 4323-8 ####[facility] LABCLIA [id number] [place] [address] Creatinine and Glomerular filtration rate.predicted panel (S/P/Bld) 105 mL/min/1.73m??? Normal >=60 [facility] Comment on above: Order Comment: Speci men Type: BLOOD SPECIMENOrdering Facility: [facility] Address: [address] [place], [place] [address] Result Comment: Megan mated Glomerular Filtration Rate [...] actual GFR. Performed By: #### 2 4323-8 ####[facility] LABCLIA [id number] [place] [address] Glucose [Mass/Vol] 87 mg/dL Normal 74-99 [facility] Comment on above: Order Comment: Frank farhan Type: BLOOD SPECIMENOrdering Facility: [facility] Address: [address] [place], [place] [address] Result Comment: The [place] Diabetes Association (ADA) provides guidance for cutoff [...] Standards of Medical Care in Diabetes 2016, [place] [employer]. Diabetes Care. 2016.39(Suppl 1). Performed By: #### 2 4323-8 ####[facility] LABCLIA [id number] [place] [address] Potassium [Moles/Vol] 4.4 mmol/L Normal 3.7-5.1 [facility] Comment on above: Order Comment: Speci men Type: BLOOD SPECIMENOrdering Facility: [facility] Address: [address] [place] [address] Performed By: #### 2 4323-8 ####[facility] LABCLIA [id number] [place] [address] Protein [Mass/Vol] 5.4 g/dL Low 6.3-8.0 [facility] Comment on above: Order Comment: Speci men Type: BLOOD SPECIMENOrdering Facility: [facility] Address: [address] [place] [address] Performed By: #### 2 4323-8 ####[facility] LABCLIA [id number] [place] [address] Sodium [Moles/Vol] 140 mmol/L Normal 136-144 [facility] Comment on above: Order Comment: Speci men Type: BLOOD SPECIMENOrdering Facility: [facility] Address: [address] [place] [address] Performed By: #### 2 4323-8 ####[facility] LABCLIA [id number] [place] [address] Urea nitrogen [Mass/Vol] 22 mg/dL Normal 9-24 [facility] Comment on above: Order Comment: Speci men Type: BLOOD SPECIMENOrdering Facility: [facility] Address: [address] [place] [address] Performed By: #### 2 4323-8 ####[facility] LABCLIA [id number] [place] [address] Eosinophils/100 WBC Auto (Bl d)on 03-03-2024 Eosinophils/100 WBC (Bld) Automated eosinophil % [facility] Erythrocyte distribution wid th Auto (RBC) [Ratio]on 03-03-2024 Erythrocyte distribution width (RBC) [Ratio] Erythrocyte distribution width [Ratio] by Automated count 11.5-15.0 [facility] Ferritin SerPl-mCncon 2023 Ferritin [Mass/Vol] 647.0 ng/mL High 30.3-565.7 [facility] Comment on above: Order Comment: Speci men Type: BLOOD SPECIMENOrdering Facility: [facility] Address: [address] [place] [address] Performed By: #### 5 0190-8, 2132-02, 2275-09 ####[facility] LABCLIA [id number] [place] [address] [place] Hematocrit Auto (Bld) [Volum e fraction]on 03-03-2024 Hematocrit (Bld) [Volume fraction] Hematocrit [Volume Fraction] of Blood by Automated count Low 39.0-51.0 [facility] Hemoglobin [Mass/volume] in Bloodon 03-03-2024 Hemoglobin (Bld) [Mass/Vol] Hemoglobin [Mass/volume] in Blood Low 13.0-17.0 [facility] Iron and Iron binding capaci ty panelon 03-03-2024 Iron [Mass/Vol] 42 ug/dL Normal 41-186 [facility] Comment on above: Order Comment: Speci men Type: BLOOD SPECIMENOrdering Facility: [facility] Address: [address] [place] [address] Performed By: #### 5 0190-8, 2132-02, 2275-09 ####[facility] LABCLIA [id number] [place] [id number] [place] Iron binding capacity [Mass/Vol] Normal [facility] Comment on above: Order Comment: Speci men Type: BLOOD SPECIMENOrdering Facility: [facility] Address: [address] [place] [address] Result Comment: Unab le to calculate due to hemolysis. Performed By: #### 5 0190-8, 2132-02, 2275-09 ####[facility] LABCLIA [id number] [place] [address] [place] Iron/TIBC [Molar ratio] Normal [facility] Comment on above: Order Comment: Speci men Type: BLOOD SPECIMENOrdering Facility: [facility] Address: [address] [place] [address] Result Comment: Unab le to calculate due to hemolysis. Performed By: #### 5 0190-8, 2132-9, 2275-09 ####[facility] LABCLIA [id number] [place] [address] [place] Iron binding capacity [Mass/ volume] in Serum or Plasmaon 03-03-2024 Iron binding capacity [Mass/Vol] Iron binding capacity [Mass/volume] in Serum or Plasma [facility] Comment on above: Unable to calculate due to hemolysis. Iron saturation [Mass Fracti on] in Serum or Plasmaon 03-03-2024 Iron saturation [Mass fraction] Iron saturation [Mass Fraction] in Serum or Plasma [facility] Comment on above: Unable to calculate due to hemolysis. Laboratory - Chemistry and C hemistry - challengeon 03-03-2024 Albumin [Mass/Vol] 2.9 g/dL Low 3.9-4.9 [facility] ALP [Catalytic activity/Vol] 181 U/L High 38-113 [facility] ALT [Catalytic activity/Vol] 17 U/L 10-54 [facility] AST [Catalytic activity/Vol] 18 U/L 14-40 [facility] Bilirubin [Mass/Vol] 0.4 mg/dL 0.2-1.3 [facility] Calcium [Mass/Vol] 8.2 mg/dL Low 8.5-10.2 [facility] Chloride [Moles/Vol] 109 mmol/L High 98-107 [facility] CO2 [Moles/Vol] 24 mmol/L 22-30 [facility] Cobalamin (Vitamin B12) [Mass/Vol] 979 pg/mL 232-1245 [facility] Creatinine [Mass/Vol] 0.62 mg/dL Low 0.73-1.22 [facility] Ferritin [Mass/Vol] 647.0 ng/mL High 30.3-565.7 [facility] Glucose [Mass/Vol] 87 mg/dL 74-99 [facility] Comment on above: The [place] Diabete s Association (ADA) provides guidance for [...] Standards of Medical Care in Diabetes 2016, [place] Diabetes Association. Diabetes Care. 2016.39(Suppl 1). Iron [Mass/Vol] 42 ug/dL 41-186 [facility] Potassium [Moles/Vol] 4.4 mmol/L 3.7-5.1 [facility] Sodium [Moles/Vol] 140 mmol/L 136-144 [facility] Urea nitrogen [Mass/Vol] 22 mg/dL 9-24 [facility] Laboratory - Hematology and Cell countson 03-03-2024 Eosinophils (Bld) [#/Vol] 0.09 10*3/uL <0.46 [facility] Immature granulocytes/100 WBC (Bld) 0.3 % [facility] Leukocytes [#/volume] correc missael for nucleated erythrocytes in Blood by Automated counon 03-03-2024 WBC corrected for nucl RBC Auto (Bld) [#/Vol] Leukocytes [#/volume] corrected for nucleated erythrocytes in Blood by Automated coun Low 3.70-11.00 [facility] Lymphocytes Auto (Bld) [#/Vo l]on 03-03-2024 Lymphocytes (Bld) [#/Vol] Lymphocytes [#/volume] in Blood by Automated count Low 1.00-4.00 [facility] Lymphocytes/100 WBC Auto (Bl d)on 03-03-2024 Lymphocytes/100 WBC (Bld) Lymphocytes/100 leukocytes in Blood by Automated count [facility] MCH Auto (RBC) [Entitic mass ]on 03-03-2024 MCH (RBC) [Entitic mass] MCH [Entitic mass] by Automated count High 26.0-34.0 [facility] MCHC Auto (RBC) [Mass/Vol]on 03-03-2024 MCHC (RBC) [Mass/Vol] MCHC [Mass/volume] by Automated count 30.5-36.0 [facility] MCV Auto (RBC) [Entitic vol] on 03-03-2024 MCV (RBC) [Entitic vol] MCV [Entitic volume] by Automated count High 80.0-100.0 [facility] Monocytes Auto (Bld) [#/Vol] on 03-03-2024 Monocytes (Bld) [#/Vol] Automated blood monocyte count <0.87 [facility] Monocytes/100 WBC Auto (Bld) on 03-03-2024 Monocytes/100 WBC (Bld) Automated monocyte % [facility] Neutrophils Auto (Bld) [#/Vo l]on 03-03-2024 Neutrophils (Bld) [#/Vol] Neutrophils [#/volume] in Blood by Automated count 1.45-7.50 [facility] Neutrophils/100 WBC Auto (Bl d)on 03-03-2024 Neutrophils/100 WBC (Bld) Automated neutrophil % [facility] No Panel Informationon 03-03 Estimated GFR (CKD-EPI) 105 mL/min/1.73m??? >=60 [facility] Comment on above: Estimated Glomerular Filtration [...] Immature Granulocyte # (Auto) <0.03 k/uL <0.10 [facility] Radiology Study observation (narrative) [facility] Nucleated RBC Auto (Bld) [#/ Vol]on 03-03-2024 Nucleated RBC (Bld) [#/Vol] Nucleated erythrocytes [#/volume] in Blood by Automated count <0.01 [facility] Nucleated erythrocytes [Pres ence] in Blood by Automated counton 03-03-2024 Nucleated RBC Auto Ql (Bld) Nucleated erythrocytes [Presence] in Blood by Automated count [facility] Platelet mean volume Auto (B ld) [Entitic vol]on 03-03-2024 Platelet mean volume (Bld) [Entitic vol] Platelet mean volume [Entitic volume] in Blood by Automated count Low 9.0-12.7 [facility] Platelets Auto (Bld) [#/Vol] on 03-03-2024 Platelets (Bld) [#/Vol] Platelets [#/volume] in Blood by Automated count 150-400 [facility] Protein [Mass/volume] in Ser um or Plasmaon 03-03-2024 Protein [Mass/Vol] Protein [Mass/volume ] in Serum or Plasma Low 6.3-8.0 [facility] RBC Auto (Bld) [#/Vol]on RBC (Bld) [#/Vol] Erythrocytes [#/volu me] in Blood by Automated count Low 4.20-6.00 [facility] Serum or plasma anion gap de terminationon 03-03-2024 Anion gap [Moles/Vol] Serum or plasma an ion gap determination Low 8-15 [facility] Serum or plasma cancer antig en 19-9 measurement (units/volume)on 03-03-2024 Cancer Ag 19-9 Qn Serum or plasma canc er antigen 19-9 measurement (units/volume) <36.0 [facility] Comment on above: Cancer antigen 19-9 [...] (Vitamin B12) [Mass/Vol] 979 pg/mL Normal 232-1245 [facility] Comment on above: Order Comment: Speci men Type: BLOOD SPECIMENOrdering Facility: [facility] Address: [address] [place] [address] Performed By: #### 5 0190-8, 2132-9, 2276-4 ####[facility] LABCLYOSSI [id number] [place] [address] [place] CNNURSEon 01-29-2024 CNNURSE Nurse Visit (HEMASA) ROCIO JACKSON ([id number]) 1955 M Date Time Provider Department 01/29/24 2:30 PM [facility] NURSE ZELAL[place] POOL During your visit today, we recorded the following information about you: Temperature Pulse Respiration Blood pressure 97.7 degrees 108/minute 16/minute 99/65 Lillian Tucker MA 01/29/2024 3:18 PM Signed Patient Identification confirmed: yes. Injection given and documented on AUG per provider order. Lillian Tucker MA Referring Provider: ZAHRA MAY [[id number]] Allergies As of Date: 01/29/2024 (No Known Allergies) Date Reviewed: 01/04/2024 Reviewed by: Leila Wagner PAJasonC - Fully Assessed Primary Visit Diagnosis:Cancer of [...] three times a day with meals. - gwoxqt-ksbwfcaq-viuxmed (ZENPEP) 25,000-79,000- 105,000 unit delayed release capsule Take 2 capsules by mouth three times a day with meals. - tcfbzz-rtgknnfv-kgbkbwh (CREON 24) 24,000-76,000 -120,000 unit delayed release [...] Encounter Status:Closed by LILLIAN TUCKER on 01/29/24 [facility] 01-08-2024 [facility] Nurse Visit (HEMASA) ROCIO JACKSON ([id number]) 1955 M Date Time Provider Department 01/08/24 3:15 PM [facility] NURSE [place]EL[place] POOL During your visit today, we recorded the following information about you: Temperature Pulse Respiration Blood pressure 97.6 degrees 88/minute 16/minute 101/68 Lillian Tucker MA 01/08/2024 3:26 PM Signed Patient Identification confirmed: yes. Injection given and documented on AUG per provider order. Lillian Tucker MA Referring Provider: ZAHRA MAY [[id number]] Allergies As of Date: 01/08/2024 (No Known [...] three times a day with meals. - nwomga-pnsfpejj-vzjwhtj (ZENPEP) 25,000-79,000- 105,000 unit delayed release capsule Take 2 capsules by mouth three times a day with meals. - krcakj-mtauxznv-hnfvdqj (CREON 24) 24,000-76,000 -120,000 unit delayed release [...] Encounter Status:Closed by LILLIAN TUCKER on 01/08/24 [facility] (HEMASA) ROCIO JACKSON ([id number]) 1955 Date Time Provider Department 01/04/24 ZAHRA MAY During your visit today, we recorded the following information about you: Srinivasan See MA 01/04/2024 3:22 PM Signed DATE ON NEEDS TO BE CHANGED TO SCHEDULED DATE OF 01/07. Srinivasan See MA Allergies As of Date: 01/04/2024 (No Known Allergies) Date Reviewed: 01/04/2024 Reviewed by: Leila Wagner PA-C - Fully Assessed Reason for Visit: Lab Orders [[id number]] Prescriptions as of 01/04/2024 - iv contrast [...] three times a day with meals. - ofiagx-pkvxhkpk-rfeurdr (ZENPEP) 25,000-79,000- 105,000 unit delayed release capsule Take 2 capsules by mouth three times a day with meals. - jlmrfe-ywvcxbaj-uwpcftc (CREON 24) 24,000-76,000 -120,000 unit delayed release [...] Status:Closed by ZAHRA MAY on 01/04/24 Normal [facility] Basophils Auto (Bld) [#/Vol] on 12-03-2023 Basophils (Bld) [#/Vol] 10*3/uL <0.11 [facility] Basophils/100 WBC Auto (Bld) on 12-03-2023 Basophils/100 WBC (Bld) 0.3 % [facility] Blood manual differential co mment interpretation narrativeon 12-03-2023 Manual differential comment Evgeny (Bld) [Interp] Auto [facility] CBC W Auto Differential pane l (Bld)on 12-03-2023 Basophils (Bld) [#/Vol] 10*3/uL Normal <0.11 [facility] Comment on above: Order Comment: Speci men Type: BLOOD SPECIMENOrdering Facility: [facility] Address: [address] [place] [address] Performed By: #### 5 7021-8 ####[facility] LABCLIA [id number] [place] [address] Basophils/100 WBC (Bld) 0.3 % Normal [facility] Comment on above: Order Comment: Speci men Type: BLOOD SPECIMENOrdering Facility: [facility] Address: [address] [place] [address] Performed By: #### 5 7021-8 ####[facility] LABCLIA [id number] [place] [address] Differential cell count method Nom (Bld) Auto Normal [facility] Comment on above: Order Comment: Speci men Type: BLOOD SPECIMENOrdering Facility: [facility] Address: [address] [place] [address] Performed By: #### 5 7021-8 ####[facility] LABCLIA [id number] [place] [address] Eosinophils (Bld) [#/Vol] 0.22 10*3/uL Normal <0.46 [facility] Comment on above: Order Comment: Speci men Type: BLOOD SPECIMENOrdering Facility: [facility] Address: [address] [place] [address] Performed By: #### 5 7021-8 ####[facility] LABCLIA [id number] [place] [address] Eosinophils/100 WBC (Bld) 3.6 % Normal [facility] Comment on above: Order Comment: Speci men Type: BLOOD SPECIMENOrdering Facility: [facility] Address: [address] [place] [address] Performed By: #### 5 7021-8 ####[facility] LABCLIA [id number] [place] [address] Erythrocyte distribution width (RBC) [Ratio] 13.4 % Normal 11.5-15.0 [facility] Comment on above: Order Comment: Speci men Type: BLOOD SPECIMENOrdering Facility: [facility] Address: [address] [place] [address] Performed By: #### 5 7021-8 ####[facility] LABCLIA [id number] [place] [address] Hematocrit (Bld) [Volume fraction] 34.0 % Low 39.0-51.0 [facility] Comment on above: Order Comment: Speci men Type: BLOOD SPECIMENOrdering Facility: [facility] Address: [address] [place] [address] Performed By: #### 5 7021-8 ####[facility] LABIA [id number] [place] [address] Hemoglobin (Bld) [Mass/Vol] 10.9 g/dL Low 13.0-17.0 [facility] Comment on above: Order Comment: Speci men Type: BLOOD SPECIMENOrdering Facility: [facility] Address: [address] [place] [address] Performed By: #### 5 7021-8 ####[facility] LABCLIA [id number] [place] [address] Immature granulocytes (Bld) [#/Vol] 0.06 10*3/uL Normal <0.10 [facility] Comment on above: Order Comment: Speci men Type: BLOOD SPECIMENOrdering Facility: [facility] Address: [address] [place] [address] Performed By: #### 5 7021-8 ####[facility] LABCLIA [id number] [place] [address] Immature granulocytes/100 WBC (Bld) 1.0 % Normal [facility] Comment on above: Order Comment: Speci men Type: BLOOD SPECIMENOrdering Facility: [facility] Address: [address] [place] [address] Performed By: #### 5 7021-8 ####[facility] LABCLIA [id number] [place] [address] Lymphocytes (Bld) [#/Vol] 1.08 10*3/uL Normal 1.00-4.00 [facility] Comment on above: Order Comment: Speci men Type: BLOOD SPECIMENOrdering Facility: [facility] Address: [address] [place] [address] Performed By: #### 5 7021-8 ####[facility] LABCLIA [id number] [place] [address] Lymphocytes/100 WBC (Bld) 17.8 % Normal [facility] Comment on above: Order Comment: Speci men Type: BLOOD SPECIMENOrdering Facility: [facility] Address: [address] [place] [address] Performed By: #### 5 7021-8 ####[facility] LABCLIA [id number] [place] [address] MCH (RBC) [Entitic mass] 32.3 pg Normal 26.0-34.0 [facility] Comment on above: Order Comment: Speci men Type: BLOOD SPECIMENOrdering Facility: [facility] Address: [address] [place] [address] Performed By: #### 5 7021-8 ####[facility] LABCLIA [id number] [place] [address] MCHC (RBC) [Mass/Vol] 32.1 g/dL Normal 30.5-36.0 [facility] Comment on above: Order Comment: Speci men Type: BLOOD SPECIMENOrdering Facility: [facility] Address: [address] [place] [address] Performed By: #### 5 7021-8 ####[facility] LABCLIA [id number] [place] [address] MCV (RBC) [Entitic vol] 100.9 fL High 80.0-100.0 [facility] Comment on above: Order Comment: Speci men Type: BLOOD SPECIMENOrdering Facility: [facility] Address: [address] [place] [address] Performed By: #### 5 7021-8 ####[facility] LABCLIA [id number] [place] [address] Monocytes (Bld) [#/Vol] 0.51 10*3/uL Normal <0.87 [facility] Comment on above: Order Comment: Speci men Type: BLOOD SPECIMENOrdering Facility: [facility] Address: [address] [place] [address] Performed By: #### 5 7021-8 ####[facility] LABCLIA [id number] [place] [address] Monocytes/100 WBC (Bld) 8.4 % Normal [facility] Comment on above: Order Comment: Speci men Type: BLOOD SPECIMENOrdering Facility: [facility] Address: [address] [place] [address] Performed By: #### 5 7021-8 ####[facility] LABCLIA [id number] [place] [address] Neutrophils (Bld) [#/Vol] 4.19 10*3/uL Normal 1.45-7.50 [facility] Comment on above: Order Comment: Speci men Type: BLOOD SPECIMENOrdering Facility: [facility] Address: [address] [place] [address] Performed By: #### 5 7021-8 ####[facility] LABCLIA [id number] [place] [address] Neutrophils/100 WBC (Bld) 68.9 % Normal [facility] Comment on above: Order Comment: Speci men Type: BLOOD SPECIMENOrdering Facility: [facility] Address: [address] [place] [address] Performed By: #### 5 7021-8 ####[facility] LABCLIA [id number] [place] [address] Nucleated RBC (Bld) [#/Vol] 10*3/uL Normal <0.01 [facility] Comment on above: Order Comment: Speci men Type: BLOOD SPECIMENOrdering Facility: [facility] Address: [address] [place] [address] Performed By: #### 5 7021-8 ####[facility] LABCLIA [id number] [place] [address] Nucleated RBC/100 WBC (Bld) [Ratio] 0.0 /100 WBC Normal [facility] Comment on above: Order Comment: Speci men Type: BLOOD SPECIMENOrdering Facility: [facility] Address: [address] [place] [address] Performed By: #### 5 7021-8 ####[facility] LABIA [id number] [place] [address] Platelet mean volume (Bld) [Entitic vol] 9.0 fL Normal 9.0-12.7 [facility] Comment on above: Order Comment: Speci men Type: BLOOD SPECIMENOrdering Facility: [facility] Address: [address] [place] [address] Performed By: #### 5 7021-8 ####[facility] LABIA [id number] [place] [address] Platelets (Bld) [#/Vol] 361 10*3/uL Normal 150-400 [facility] Comment on above: Order Comment: Speci men Type: BLOOD SPECIMENOrdering Facility: [facility] Address: [address] [place] [address] Performed By: #### 5 7021-8 ####[facility] LABIA [id number] [place] [address] RBC (Bld) [#/Vol] 3.37 10*6/uL Low 4.20-6.00 [facility] Comment on above: Order Comment: Speci men Type: BLOOD SPECIMENOrdering Facility: [facility] Address: [address] [place] [address] Performed By: #### 5 7021-8 ####[facility] LABCLIA [id number] [place] [address] WBC (Bld) [#/Vol] 6.08 10*3/uL Normal 3.70-11.00 [facility] Comment on above: Order Comment: Speci men Type: BLOOD SPECIMENOrdering Facility: [facility] Address: [facility] [place] [address] Performed By: #### 5 7021-8 ####[facility] LABCLIA [id number] [place] [address] CNNURSEon 12-03-2023 CNNURSE Nurse Visit (HEMASA) ROCIO JACKSON ([id number]) 1955 M Date Time Provider Department 12/03/23 3:15 PM MELANI NURSE [facility] During your visit today, we recorded the following information about you: Lillian Tucker MA 12/03/2023 3:35 PM Signed Patient Identification confirmed: yes. Injection given and documented on AUG per provider order. 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 - tkvpqq-xbsrsrtb-pqstzvj (ZENPEP) 25,000-79,000- 105,000 unit delayed release capsule Take 2 capsules by mouth three times a day with meals. - ikwlmz-sjiwsupw-bicfhcn (CREON 24) 24,000-76,000 -120,000 unit delayed release [...] *09/10/2023 Visit Notes: >> Lillian Tucker MA [facility] Dec 03, 2023 3:34 PM Status: Signed Patient Identification confirmed: yes. Injection given and documented on AUG per provider order. Lillian Tucker MA Prescriptions ordered this encounter Disp Refills Start End CYANOCOBALAMIN (VIT B-12) 1,000 MCG/* 12/03/2023 12/03/2023 Route: INTRAMUSCULA Encounter Status:Closed by LILLIAN TUCKER on 12/03/23 [facility] Visit (SP) Office ([facility]) ROCIO JACKSON ([id number]) 1955 M Date Time Provider Department 12/03/23 3:00 PM ZAHRA MAY During your visit today, we recorded the following information about you: Temperature Pulse Respiration Blood pressure 97.1 degrees 96/minute 18/minute 102/66 Zahra May MD 12/05/2023 3:00 PM Signed NAME: Rocio Jackson CLINIC NO.: [id number] DATE OF SERVICE: December 03, 2023 (Iftikhar) [...] Invasive poorly (more content not included)... Normal [facility] CNPNon 12-03-2023 CNPN Telephone (NCCAP) ROCIO JACKSON ([id number]) 1955 Date Time Provider Department 12/03/23 ZAHRA MAY [facility] During your visit today, we recorded the [...] Natalie, RN 12/07/2023 1:55 PM Signed Pt daughterShiela, aware of MM message and [...] three times a day with meals. - zkriri-bktswfan-xnfvpjt (ZENPEP) 25,000-79,000- 105,000 unit delayed release capsule Take 2 capsules by mouth three times a day with meals. - ibivsg-apyipedv-vtvrafm (CREON 24) 24,000-76,000 -120,000 unit delayed release [...] Status:Closed by CASSANDRA HERNANDEZ on 12/07/23 Normal [facility] Comprehensive metabolic 2000 panelon 12-03-2023 Albumin [Mass/Vol] 3.6 g/dL Low 3.9-4.9 [facility] Comment on above: Order Comment: Speci men Type: BLOOD SPECIMENOrdering Facility: [facility] Address: [address] [place] [address] Performed By: #### 2 4323-8 ####[facility] LABCLIA [id number] [place] [address] ALP [Catalytic activity/Vol] 158 U/L High 38-113 [facility] Comment on above: Order Comment: Speci men Type: BLOOD SPECIMENOrdering Facility: [facility] Address: [address] [place] [address] Performed By: #### 2 4323-8 ####[facility] LABCLIA [id number] [place] [address] ALT [Catalytic activity/Vol] 13 U/L Normal 10-54 [facility] Comment on above: Order Comment: Speci men Type: BLOOD SPECIMENOrdering Facility: [facility] Address: [address] [place] [address] Performed By: #### 2 4323-8 ####[facility] LABCLIA [id number] [place] [address] Anion gap [Moles/Vol] 10 mmol/L Normal 8-15 [facility] Comment on above: Order Comment: Speci men Type: BLOOD SPECIMENOrdering Facility: [facility] Address: [address] [place] [address] Performed By: #### 2 4323-8 ####[facility] LABCLIA [id number] [place] [address] AST [Catalytic activity/Vol] 13 U/L Low 14-40 [facility] Comment on above: Order Comment: Speci men Type: BLOOD SPECIMENOrdering Facility: [facility] Address: [address] [place] [address] Performed By: #### 2 4323-8 ####[facility] LABCLIA [id number] [place] [address] Bilirubin [Mass/Vol] 0.2 mg/dL Normal 0.2-1.3 [facility] Comment on above: Order Comment: Speci men Type: BLOOD SPECIMENOrdering Facility: [facility] Address: [address] [place] [address] Performed By: #### 2 4323-8 ####[facility] LABCLIA [id number] [place] [address] Calcium [Mass/Vol] 9.5 mg/dL Normal 8.5-10.2 [facility] Comment on above: Order Comment: Speci men Type: BLOOD SPECIMENOrdering Facility: [facility] Address: [address] [place] [address] Performed By: #### 2 4323-8 ####[facility] LABCLIA [id number] [place] [address] Chloride [Moles/Vol] 108 mmol/L High 98-107 [facility] Comment on above: Order Comment: Speci men Type: BLOOD SPECIMENOrdering Facility: [facility] Address: [address] [place] [address] Performed By: #### 2 4323-8 ####[facility] LABCLIA [id number] [place] [address] CO2 [Moles/Vol] 19 mmol/L Low 22-30 [facility] Comment on above: Order Comment: Speci men Type: BLOOD SPECIMENOrdering Facility: [facility] Address: [address] [id number] Performed By: #### 2 4323-8 ####[facility] LABCLIA [id number] [place] [address] Creatinine [Mass/Vol] 0.78 mg/dL Normal 0.73-1.22 [facility] Comment on above: Order Comment: Speci men Type: BLOOD SPECIMENOrdering Facility: [facility] Address: [address] [place] [address] Performed By: #### 2 4323-8 ####[facility] LABCLIA [id number] [place] [address] Creatinine and Glomerular filtration rate.predicted panel (S/P/Bld) 98 mL/min/1.73m??? Normal >=60 [facility] Comment on above: Order Comment: Speci men Type: BLOOD SPECIMENOrdering Facility: [facility] Address: [address] [place] [address] Result Comment: Megan mated Glomerular Filtration Rate [...] actual GFR. Performed By: #### 2 4323-8 ####[facility] LABIA [id number] [place] [address] Glucose [Mass/Vol] 103 mg/dL High 74-99 [facility] Comment on above: Order Comment: Frank real Type: BLOOD SPECIMENOrdering Facility: [facility] Address: [address] [place], [place] [address] Result Comment: The [place] Diabetes [employer] (ADA) provides guidance for cutoff [...] Standards of Medical Care in Diabetes 2016, [place] [employer]. Diabetes Care. 2016.39(Suppl 1). Performed By: #### 2 4323-8 ####[facility] LABCLIA [id number] [place] [address] Potassium [Moles/Vol] 4.5 mmol/L Normal 3.7-5.1 [facility] Comment on above: Order Comment: Speci men Type: BLOOD SPECIMENOrdering Facility: [facility] Address: [address] [place] [address] Performed By: #### 2 4323-8 ####[facility] LABCLIA [id number] [place] [address] Protein [Mass/Vol] 7.0 g/dL Normal 6.3-8.0 [facility] Comment on above: Order Comment: Speci men Type: BLOOD SPECIMENOrdering Facility: [facility] Address: [address] [place] [address] Performed By: #### 2 4323-8 ####[facility] LABCLIA [id number] [place] [address] Sodium [Moles/Vol] 137 mmol/L Normal 136-144 [facility] Comment on above: Order Comment: Speci men Type: BLOOD SPECIMENOrdering Facility: [facility] Address: [address] [place] [address] Performed By: #### 2 4323-8 ####[facility] LABCLIA [id number] [place] [address] Urea nitrogen [Mass/Vol] 25 mg/dL High 9-24 [facility] Comment on above: Order Comment: Speci men Type: BLOOD SPECIMENOrdering Facility: [facility] Address: [address] [place], [place] [address] Performed By: #### 2 4323-8 ####[facility] LABCLIA [id number] [place] [address] Eosinophils/100 WBC Auto (Bl d)on 12-03-2023 Eosinophils/100 WBC (Bld) 3.6 % [facility] Erythrocyte distribution wid th Auto (RBC) [Ratio]on 12-03-2023 Erythrocyte distribution width (RBC) [Ratio] 13.4 % 11.5-15.0 [facility] Ferritin SerPl-mCncon 2023 Ferritin [Mass/Vol] 667.0 ng/mL High 30.3-565.7 [facility] Comment on above: Order Comment: Speci men Type: BLOOD SPECIMENOrdering Facility: [facility] Address: [address] [place] [address] Performed By: #### 5 0190-8, 2276-4, 228-8, 9 ####[facility] LABCLIA [id number] [place] [id number] [place] Folate SerPl-mCncon 12-03-19 Folate [Mass/Vol] 17.4 ng/mL Normal >4.7 [facility] Comment on above: Order Comment: Speci men Type: BLOOD SPECIMENOrdering Facility: [facility] Address: [address] [place] [address] Performed By: #### 5 0190-8, 2276-4, 2284-8, 9 ####[facility] LABCLIA [id number] [place] [id number] [place] Hematocrit Auto (Bld) [Volum e fraction]on 12-03-2023 Hematocrit (Bld) [Volume fraction] 34.0 % Low 39.0-51.0 [facility] Hemoglobin [Mass/volume] in Bloodon 12-03-2023 Hemoglobin (Bld) [Mass/Vol] 10.9 g/dL Low 13.0-17.0 [facility] Iron and Iron binding capaci ty panelon 12-03-2023 Iron [Mass/Vol] 34 ug/dL Low 41-186 [facility] Comment on above: Order Comment: Speci men Type: BLOOD SPECIMENOrdering Facility: [facility] Address: [address] [place] [address] Performed By: #### 5 0190-8, 6-4, 8, 2132-02 ####[facility] LABCLIA [id number] [place] [address] [place] Iron binding capacity [Mass/Vol] 194 ug/dL Low 232-386 [facility] Comment on above: Order Comment: Speci men Type: BLOOD SPECIMENOrdering Facility: [facility] Address: [address] [place] [address] Performed By: #### 5 0190-8, 2275-4, 8, 2132-02 ####[facility] LABCLIA [id number] [place] [address] [place] Iron/TIBC [Molar ratio] 17.5 % Normal 15.0-57.0 [facility] Comment on above: Order Comment: Speci men Type: BLOOD SPECIMENOrdering Facility: [facility] Address: [address] [place] [address] Performed By: #### 5 0190-8, 2275-4, 8, 2132-02 ####[facility] LABCLIA [id number] [place] [id number] [place] Iron binding capacity [Mass/ volume] in Serum or Plasmaon 12-03-2023 Iron binding capacity [Mass/Vol] 194 ug/dL Low 232-386 [facility] Iron saturation [Mass Fracti on] in Serum or Plasmaon 12-03-2023 Iron saturation [Mass fraction] 17.5 % 15.0-57.0 [facility] - Chemistry and C hemistry - challengeon 12-03-2023 Albumin [Mass/Vol] 3.6 g/dL Low 3.9-4.9 [facility] ALP [Catalytic activity/Vol] 158 U/L High 38-113 [facility] ALT [Catalytic activity/Vol] 13 U/L 10-54 [facility] AST [Catalytic activity/Vol] 13 U/L Low 14-40 [facility] Bilirubin [Mass/Vol] 0.2 mg/dL 0.2-1.3 [facility] Calcium [Mass/Vol] 9.5 mg/dL 8.5-10.2 [facility] Chloride [Moles/Vol] 108 mmol/L High 98-107 [facility] CO2 [Moles/Vol] 19 mmol/L Low 22-30 [facility] Cobalamin (Vitamin B12) [Mass/Vol] 1473 pg/mL High 232-1245 [facility] Creatinine [Mass/Vol] 0.78 mg/dL 0.73-1.22 [facility] Ferritin [Mass/Vol] 667.0 ng/mL High 30.3-565.7 [facility] Glucose [Mass/Vol] 103 mg/dL High 74-99 [facility] Comment on above: The [place] Diab[employer] Association (ADA) provides guidance for [...] Standards of Medical Care in Diabetes 2016, [place] [employer]. Diabetes Care. 2016.39(Suppl 1). Iron [Mass/Vol] 34 ug/dL Low 41-186 [facility] Potassium [Moles/Vol] 4.5 mmol/L 3.7-5.1 [facility] Sodium [Moles/Vol] 137 mmol/L 136-144 [facility] Urea nitrogen [Mass/Vol] 25 mg/dL High 9-24 [facility] - Hematology and Cell countson 12-03-2023 Eosinophils (Bld) [#/Vol] 0.22 10*3/uL <0.46 [facility] Immature granulocytes (Bld) [#/Vol] 0.06 10*3/uL <0.10 [facility] Immature granulocytes/100 WBC (Bld) 1.0 % [facility] Leukocytes [#/volume] correc missael for nucleated erythrocytes in Blood by Automated counon 12-03-2023 WBC corrected for nucl RBC Auto (Bld) [#/Vol] 6.08 k/uL 3.70-11.00 [facility] Lymphocytes Auto (Bld) [#/Vo l]on 12-03-2023 Lymphocytes (Bld) [#/Vol] 1.08 10*3/uL 1.00-4.00 [facility] Lymphocytes/100 WBC Auto (Bl d)on 12-03-2023 Lymphocytes/100 WBC (Bld) 17.8 % [facility] MCH Auto (RBC) [Entitic mass ]on 12-03-2023 MCH (RBC) [Entitic mass] 32.3 pg 26.0-34.0 [facility] MCHC Auto (RBC) [Mass/Vol]on 12-03-2023 MCHC (RBC) [Mass/Vol] 32.1 g/dL 30.5-36.0 [facility] MCV Auto (RBC) [Entitic vol] on 12-03-2023 MCV (RBC) [Entitic vol] 100.9 fL High 80.0-100.0 [facility] Monocytes Auto (Bld) [#/Vol] on 12-03-2023 Monocytes (Bld) [#/Vol] 0.51 10*3/uL <0.87 [facility] Monocytes/100 WBC Auto (Bld) on 12-03-2023 Monocytes/100 WBC (Bld) 8.4 % [facility] Neutrophils Auto (Bld) [#/Vo l]on 12-03-2023 Neutrophils (Bld) [#/Vol] 4.19 10*3/uL 1.45-7.50 [facility] Neutrophils/100 WBC Auto (Bl d)on 12-03-2023 Neutrophils/100 WBC (Bld) 68.9 % [facility] No Panel Informationon 12-02 Estimated GFR (CKD-EPI) 98 mL/min/1.73m??? >=60 [facility] Comment on above: Estimated Glomerular Filtration [...] reflect actual GFR. Folate 17.4 ng/mL >4.7 [facility] Nucleated RBC Auto (Bld) [#/ Vol]on 12-03-2023 Nucleated RBC (Bld) [#/Vol] 10*3/uL <0.01 [facility] Nucleated erythrocytes [Pres ence] in Blood by Automated counton 12-03-2023 Nucleated RBC Auto Ql (Bld) 0.0 /100{WBC} [facility] Platelet mean volume Auto (B ld) [Entitic vol]on 12-03-2023 Platelet mean volume (Bld) [Entitic vol] 9.0 fL 9.0-12.7 [facility] Platelets Auto (Bld) [#/Vol] on 12-03-2023 Platelets (Bld) [#/Vol] 361 10*3/uL 150-400 [facility] Protein [Mass/volume] in Ser um or Plasmaon 12-03-2023 Protein [Mass/Vol] 7.0 g/dL 6.3-8.0 [facility] RBC Auto (Bld) [#/Vol]on RBC (Bld) [#/Vol] 3.37 10*6/uL Low 4.20-6.00 [facility] Serum or plasma anion gap de terminationon 12-03-2023 Anion gap [Moles/Vol] 10 mmol/L 8-15 [facility] Vit B12 SerPl-mCncon 024 Cobalamin (Vitamin B12) [Mass/Vol] 1473 pg/mL High 232-1245 [facility] Comment on above: Order Comment: Speci men Type: BLOOD SPECIMENOrdering Facility: [facility] Address: [address] [place] [address] Performed By: #### 5 0190-8, 2276-4, 2284-8, 2132-9 ####[facility] LABCLIA [id number] [address]DA P[id number] CNNURSEon 11-05-2023 CNNURSE Nurse Visit (HEMASA) ROCIO JACKSON ([id number]) 1955 M Date Time Provider Department 11/05/23 2:15 PM MELANI NURSE ZELALEM HART HEMCANDIE During your visit today, we recorded the following information about you: Temperature Pulse Respiration Blood pressure 97.3 degrees 95/minute 18/minute 100/64 Livier Seay MA 11/05/2023 2:27 PM Signed Patient Identification confirmed: yes. Injection given and documented on AUG per provider order. Livier Seay MA Referring Provider: ZAHRA MAY [[id number]] Allergies As of Date: 11/05/2023 (No Known [...] three times a day with meals. - kacdgj-ywkahblk-lrntuiz (ZENPEP) 25,000-79,000- 105,000 unit delayed release capsule Take 2 capsules by mouth three times a day with meals. - dqyluh-fmljlrea-yrdrhyr (CREON 24) 24,000-76,000 -120,000 unit delayed release [...] *09/10/2023 Visit Notes: >> Livier Seay MA Thu November 05, 2023 2:26 PM Status: Signed Patient Identification confirmed: yes. Injection given and documented on AUG per provider order. Livier Seay MA Prescriptions ordered this encounter Disp Refills Start End CYANOCOBALAMIN (VIT B-12) 1,000 MCG/* 11/05/2023 11/05/2023 Route: INTRAMUSCULA Encounter Status:Closed by LIVIER SEAY on 11/05/23 [facility] CNNURSEon 10-08-2023 [facility] Nurse Visit (HEMASA) ROCIO JACKSON ([id number]) 1955 M Date Time Provider Department 10/08/23 2:30 PM MELANI NURSE ZELALEM POOL During your visit today, we recorded the following information about you: Temperature Pulse Respiration Blood pressure 97.4 degrees 76/minute 18/minute 95/53 Livier Seay MA 10/08/2023 3:03 PM Signed Patient Identification confirmed: yes. Injection given and documented on AUG per provider order. Livier Seay MA Referring Provider: ZAHRA MAY [[id number]] Allergies As of Date: 10/08/2023 (No Known [...] three times a day with meals. - ccjgti-lamsfzxk-fdgdavo (ZENPEP) 25,000-79,000- 105,000 unit delayed release capsule Take 2 capsules by mouth three times a day with meals. - zrdmkj-sgaeotxj-eqcufar (CREON 24) 24,000-76,000 -120,000 unit delayed release [...] *09/10/2023 Visit Notes: >> Livier Seay MA [facility] Oct 08, 2023 3:02 PM Status: Signed Patient Identification confirmed: yes. Injection given and documented on AUG per provider order. Livier Seay MA Prescriptions ordered this encounter Disp Refills Start End CYANOCOBALAMIN (VIT B-12) 1,000 MCG/* 10/08/2023 10/08/2023 Route: INTRAMUSCULA Encounter Status:Closed by LIVIER SEAY on 10/08/23 [facility] (HEMTSA) ROCIO JACKSON ([id number]) 1955 M Date Time Provider Department 09/24/23 FINANCIAL NAVIGATOR ZELALEMJoe SRINIVASANJoe During your visit today, we recorded the following information about you: Fer Hagen 09/24/2023 3:06 PM Signed 1st report of treatment-Non oncology regimen (Monoferric) Patient holds Medicare coverage and therefore no FA required. Allergies As of Date: 09/24/2023 (No Known Allergies) Date Reviewed: 09/10/2023 Reviewed by: Srinivasan See, MA - Fully Assessed Reason for Visit: Benefits Investigation [0889] Prescriptions as of 09/24/2023 - ybauyd-utaqtnlr-mbulrce (ZENPEP) 25,000-79,000- 105,000 unit delayed release capsule Take 2 capsules by mouth three times a day with meals. - metoclopramide HCl (REGLAN) 10 mg tablet Take 1 tablet by mouth three times a day with meals. - pekcrs-wzlkckbd-mqyitxu (CREON 24) 24,000-76,000 -120,000 unit delayed release [...] Encounter Status:Closed by FER HAGEN on 09/24/23 Normal [facility] CNNURSEon 09-10-2023 CNNURSE Nurse Visit (HEMASA) ROCIO JACKSON ([id number]) 1955 M Date Time Provider Department 09/10/23 2:30 PM MELANI NURSE ZELALEM POOL During your visit today, we recorded the following information about you: Livier Seay 09/10/2023 2:32 PM Signed Patient Identification confirmed: yes. Injection given and documented on AUG per provider order. 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 - metoclopramide HCl (REGLAN) 10 mg tablet Take 1 tablet by mouth three times a day with meals. - huqgap-jxmrmlge-qgeyews (CREON 24) 24,000-76,000 -120,000 unit delayed release [...] inadequate *09/10/2023 Visit Notes: >> Livier Seay Cornelia Sep 10, 2023 2:30 PM Status: Signed Patient Identification confirmed: yes. Injection given and documented on AUG per provider order. Livier Seay Prescriptions ordered this encounter Disp Refills Start End CYANOCOBALAMIN (VIT B-12) 1,000 MCG/* 09/10/2023 09/10/2023 Route: INTRAMUSCULA Encounter Status:Closed by LIVIER SEAY on 09/10/23 [facility] CNOVSPon 09-10-2023 CNOVSP Visit (SP) Office (H EMASA) ROCIO JACKSON ([id number]) 1955 M Date Time Provider Department 09/10/23 2:15 PM ZAHRA MAY During your visit today, we recorded the following information about you: Temperature Pulse Respiration Blood pressure 97.1 degrees 83/minute 16/minute 113/69 Height 1.708 m RuthieZahra usra 09/10/2023 2:12 PM Signed B12 shot today and every 4 weeks. IV iron when approved (previously received Monoferric) Patient will continue folic acid 1 mg daily as Rx'd. continue following with Dr. Caputo for DMII management. RTC in 3 months Labs [address] scans in 6 months Zahra May MD 09/10/2023 9:16 PM Signed NAME: Rocio Jackson CLINIC NO.: [id number] DATE OF SERVICE: September 10, 2023 (Iftikhar) [...] less conspicuo (more content not included)... [facility] ROCIO JACKSON ([id number]) 1955 M Date Time Provider Department 09/10/23 IMELDA REYNOLDS During your visit today, we recorded the following information about you: Imelda Reynolds johnathan 09/10/2023 9:30 AM Signed Approved for free Creon until 06/28/2024. Patient should receive shipment in 5-7 business days. Artur Reynolds PharmD, BCOP Allergies As of Date: 09/10/2023 (No Known Allergies) Date Reviewed: 06/23/2023 Reviewed by: Rola Gordon APRN.LUMBER TAILER - Fully Assessed Reason for Visit: Medication Authorization [1699] Prescriptions as of 09/10/2023 - xaaqzv-mtlrnjtd-wzfffaz (ZENPEP) 25,000-79,000- 105,000 unit delayed release capsule Take 2 capsules by mouth three times a day with meals. - metoclopramide HCl (REGLAN) 10 mg tablet Take 1 tablet by mouth three times a day with meals. - ssogbk-eupvzklk-mihsgmm (CREON 24) 24,000-76,000 -120,000 unit delayed release [...] Status:Closed by IMELDA REYNOLDS on 09/10/23 Normal [facility] CA 19-9 BLDon 09-04-2023 Cancer Ag 19-9 Qn 8.0 [arb'U]/mL NINF - 36.0 U/mL [facility] Comment on above: Cancer antigen 19-9 test is used as an aid in monitoring response to treatment or recurrence in patients with established pancreatic, hepatobiliary, or gastrointestinal malignancies. Clinical correlation is required. The CA 19-9 Antigen test was performed using the To PCA Auditel DXI paramagnetic particle chemiluminescent immunoassay method. Results obtained with different assay methods or kits cannot be used interchangeably. Cancer Ag 19-9 Qnon 09-04-19 Interpretation and review of laboratory results Normal [facility] Cobalamin (Vitamin B12) [Mas s/Vol]on 09-04-2023 Interpretation and review of laboratory results Normal [facility] FERRITIN BLDon 09-04-2023 Ferritin [Mass/Vol] 314.0 ng/mL 30.3 - 565.7 ng/mL [facility] Ferritin [Mass/Vol]on 2023 Interpretation and review of laboratory results Normal [facility] Iron and Iron binding capaci ty panelon 09-04-2023 Interpretation and review of laboratory results Abnormal [facility] Iron [Mass/Vol] 27 ug/dL Low 41 - 186 ug/dL [facility] Iron binding capacity [Mass/Vol] 254 ug/dL 232 - 386 ug/dL [facility] Iron/TIBC [Molar ratio] 10.6 % Low 15.0 - 57.0 % [facility] VITAMIN B12 BLOODon 09-04-19 Cobalamin (Vitamin B12) [Mass/Vol] 758 pg/mL 232 - 1245 pg/mL [facility] Basophils Auto (Bld) [#/Vol] on 09-03-2023 Basophils (Bld) [#/Vol] 10*3/uL <0.11 [facility] Basophils/100 WBC Auto (Bld) on 09-03-2023 Basophils/100 WBC (Bld) 0.2 % [facility] Blood manual differential co mment interpretation narrativeon 09-03-2023 Manual differential comment Evgeny (Bld) [Interp] Auto [facility] CBC W Auto Differential pane l (Bld)on 09-03-2023 Basophils (Bld) [#/Vol] [facility] Basophils/100 WBC (Bld) 0.2 % [facility] Differential cell count method Nom (Bld) Auto [facility] Eosinophils (Bld) [#/Vol] 0.22 10*3/uL [facility] Eosinophils/100 WBC (Bld) 2.1 % [facility] Erythrocyte distribution width (RBC) [Ratio] 15.4 % High 11.5 - 15.0 % [facility] Hematocrit (Bld) [Volume fraction] 37.5 % Low 39.0 - 51.0 % [facility] Hemoglobin (Bld) [Mass/Vol] 12.0 g/dL Low 13.0 - 17.0 g/dL [facility] Immature granulocytes (Bld) [#/Vol] 0.03 10*3/uL [facility] Immature granulocytes/100 WBC (Bld) 0.3 % [facility] Interpretation and review of laboratory results Abnormal [facility] Lymphocytes (Bld) [#/Vol] 1.43 10*3/uL [facility] Lymphocytes/100 WBC (Bld) 13.7 % [facility] MCH (RBC) [Entitic mass] 31.1 pg 26.0 - 34.0 pg [facility] MCHC (RBC) [Mass/Vol] 32.0 g/dL 30.5 - 36.0 g/dL [facility] MCV (RBC) [Entitic vol] 97.2 fL 80.0 - 100.0 fL [facility] Monocytes (Bld) [#/Vol] 0.46 10*3/uL [facility] Monocytes/100 WBC (Bld) 4.4 % [facility] Neutrophils (Bld) [#/Vol] 8.27 10*3/uL High [facility] Neutrophils/100 WBC (Bld) 79.3 % [facility] Nucleated RBC (Bld) [#/Vol] [facility] Nucleated RBC/100 WBC (Bld) [Ratio] 0.0 % /100 WBC [facility] Platelet mean volume (Bld) [Entitic vol] 9.2 fL 9.0 - 12.7 fL [facility] Platelets (Bld) [#/Vol] 359 10*3/uL [facility] RBC (Bld) [#/Vol] 3.86 10*6/uL Low 4.20 - 6.00 m/uL [facility] WBC (Bld) [#/Vol] 10.43 10*3/uL [facility] Basophils (Bld) [#/Vol] 10*3/uL Normal <0.11 [facility] Comment on above: Order Comment: Speci men Type: BLOOD SPECIMENOrdering Facility: [facility] Address: [address] [place] [address] Performed By: #### 5 7021-8 ####[facility] LABCLIA [id number] [place] [address] Basophils/100 WBC (Bld) 0.2 % Normal [facility] Comment on above: Order Comment: Speci men Type: BLOOD SPECIMENOrdering Facility: [facility] Address: [address] [place] [address] Performed By: #### 5 7021-8 ####[facility] LABCLIA [id number] [place] [address] Differential cell count method Nom (Bld) Auto Normal [facility] Comment on above: Order Comment: Speci men Type: BLOOD SPECIMENOrdering Facility: [facility] Address: [address] [place] [address] Performed By: #### 5 7021-8 ####[facility] LABCLIA [id number] [place] [address] Eosinophils (Bld) [#/Vol] 0.22 10*3/uL Normal <0.46 [facility] Comment on above: Order Comment: Speci men Type: BLOOD SPECIMENOrdering Facility: [facility] Address: [address] [place] [address] Performed By: #### 5 7021-8 ####[facility] LABCLIA [id number] [place] [address] Eosinophils/100 WBC (Bld) 2.1 % Normal [facility] Comment on above: Order Comment: Speci men Type: BLOOD SPECIMENOrdering Facility: [facility] Address: [address] [place] [address] Performed By: #### 5 7021-8 ####[facility] LABCLIA [id number] [place] [address] Erythrocyte distribution width (RBC) [Ratio] 15.4 % High 11.5-15.0 [facility] Comment on above: Order Comment: Speci men Type: BLOOD SPECIMENOrdering Facility: [facility] Address: [address] [place] [address] Performed By: #### 5 7021-8 ####[facility] LABCLIA [id number] [place] [address] Hematocrit (Bld) [Volume fraction] 37.5 % Low 39.0-51.0 [facility] Comment on above: Order Comment: Speci men Type: BLOOD SPECIMENOrdering Facility: [facility] Address: [address] [place] [address] Performed By: #### 5 7021-8 ####[facility] LABCLIA [id number] [place] [address] Hemoglobin (Bld) [Mass/Vol] 12.0 g/dL Low 13.0-17.0 [facility] Comment on above: Order Comment: Speci men Type: BLOOD SPECIMENOrdering Facility: [facility] Address: [address] [place] [address] Performed By: #### 5 7021-8 ####[facility] LABCLIA [id number] [place] [address] Immature granulocytes (Bld) [#/Vol] 0.03 10*3/uL Normal <0.10 [facility] Comment on above: Order Comment: Speci men Type: BLOOD SPECIMENOrdering Facility: [facility] Address: [address] [place] [address] Performed By: #### 5 7021-8 ####[facility] LABCLIA [id number] [place] [address] Immature granulocytes/100 WBC (Bld) 0.3 % Normal [facility] Comment on above: Order Comment: Speci men Type: BLOOD SPECIMENOrdering Facility: [facility] Address: [address] [place] [address] Performed By: #### 5 7021-8 ####[facility] LABCLIA [id number] [place] [address] Lymphocytes (Bld) [#/Vol] 1.43 10*3/uL Normal 1.00-4.00 [facility] Comment on above: Order Comment: Speci men Type: BLOOD SPECIMENOrdering Facility: [facility] Address: [address] [place] [address] Performed By: #### 5 7021-8 ####[facility] LABCLIA [id number] [place] [address] Lymphocytes/100 WBC (Bld) 13.7 % Normal [facility] Comment on above: Order Comment: Speci men Type: BLOOD SPECIMENOrdering Facility: [facility] Address: [address] [place] [address] Performed By: #### 5 7021-8 ####[facility] LABCLIA [id number] [place] [address] MCH (RBC) [Entitic mass] 31.1 pg Normal 26.0-34.0 [facility] Comment on above: Order Comment: Speci men Type: BLOOD SPECIMENOrdering Facility: [facility] Address: [address] [place] [address] Performed By: #### 5 7021-8 ####[facility] LABCLIA [id number] [place] [address] MCHC (RBC) [Mass/Vol] 32.0 g/dL Normal 30.5-36.0 [facility] Comment on above: Order Comment: Speci men Type: BLOOD SPECIMENOrdering Facility: [facility] Address: [address] [place] [address] Performed By: #### 5 7021-8 ####[facility] LABCLIA [id number] [place] [address] MCV (RBC) [Entitic vol] 97.2 fL Normal 80.0-100.0 [facility] Comment on above: Order Comment: Speci men Type: BLOOD SPECIMENOrdering Facility: [facility] Address: [address] [place] [address] Performed By: #### 5 7021-8 ####[facility] LABCLIA [id number] [place] [address] Monocytes (Bld) [#/Vol] 0.46 10*3/uL Normal <0.87 [facility] Comment on above: Order Comment: Speci men Type: BLOOD SPECIMENOrdering Facility: [facility] Address: [address] [place] [address] Performed By: #### 5 7021-8 ####[facility] LABCLIA [id number] [place] [address] Monocytes/100 WBC (Bld) 4.4 % Normal [facility] Comment on above: Order Comment: Speci men Type: BLOOD SPECIMENOrdering Facility: [facility] Address: [address] [place] [address] Performed By: #### 5 7021-8 ####[facility] LABCLIA [id number] [place] [address] Neutrophils (Bld) [#/Vol] 8.27 10*3/uL High 1.45-7.50 [facility] Comment on above: Order Comment: Speci men Type: BLOOD SPECIMENOrdering Facility: [facility] Address: [address] [place] [address] Performed By: #### 5 7021-8 ####[facility] LABCLIA [id number] [place] [address] Neutrophils/100 WBC (Bld) 79.3 % Normal [facility] Comment on above: Order Comment: Speci men Type: BLOOD SPECIMENOrdering Facility: [facility] Address: [address] [place] [address] Performed By: #### 5 7021-8 ####[facility] LABCLIA [id number] [place] [address] Nucleated RBC (Bld) [#/Vol] 10*3/uL Normal <0.01 [facility] Comment on above: Order Comment: Speci men Type: BLOOD SPECIMENOrdering Facility: [facility] Address: [address] [place] [address] Performed By: #### 5 7021-8 ####[facility] LABCLIA [id number] [place] [address] Nucleated RBC/100 WBC (Bld) [Ratio] 0.0 /100 WBC Normal [facility] Comment on above: Order Comment: Speci men Type: BLOOD SPECIMENOrdering Facility: [facility] Address: [address] [place] [address] Performed By: #### 5 7021-8 ####[facility] LABIA [id number] [place] [address] Platelet mean volume (Bld) [Entitic vol] 9.2 fL Normal 9.0-12.7 [facility] Comment on above: Order Comment: Speci men Type: BLOOD SPECIMENOrdering Facility: [facility] Address: [address] [place] [address] Performed By: #### 5 7021-8 ####[facility] LABCLIA [id number] [place] [address] Platelets (Bld) [#/Vol] 359 10*3/uL Normal 150-400 [facility] Comment on above: Order Comment: Speci men Type: BLOOD SPECIMENOrdering Facility: [facility] Address: [address] [place] [address] Performed By: #### 5 7021-8 ####[facility] LABCLIA [id number] [place] [address] RBC (Bld) [#/Vol] 3.86 10*6/uL Low 4.20-6.00 [facility] Comment on above: Order Comment: Speci men Type: BLOOD SPECIMENOrdering Facility: [facility] Address: [address] [place] [address] Performed By: #### 5 7021-8 ####[facility] LABCLIA [id number] [place] [address] WBC (Bld) [#/Vol] 10.43 10*3/uL Normal 3.70-11.00 [facility] Comment on above: Order Comment: Speci men Type: BLOOD SPECIMENOrdering Facility: [facility] Address: [address] [place] [address] Performed By: #### 5 7021-8 ####[facility] LABCLIA [id number] [place] [address] CT ABD/PEL W IVCONon 024 CT ABD/PEL W IVCON * * *Final Report* * * DATE OF EXAM: Sep 03 2023 2:31PM [facility] 0530 - CT ABD/PEL W IVCON / [...] (AEC) COMPARISON: PET/CT scan dated 03/11/[address] [facility] and CT abdomen/pelvis dated 01/20/23 from [...] chest CT performed will be reported separately. Neighborhood Planner (topogram) images: No additional findings. IMPRESSION: 1. [...] any questions regarding this interpretation, please call [phone]. If you are unable to reach us at the number above, please feel free to contact [facility] at [phone]. [id number] Normal [facility] CT Abdomen and Pelvis W cont [...] any questions regarding this interpretation, please call [phone]. If you are unable to reach us at the number above, please feel free to contact [facility] at [phone]. DIVISION OF RADIOLOGY * * *Final Report* * * DATE OF EXAM: Sep 03 2023 2:31PM [facility] 0530 - CT ABD/PEL W IVCON / [...] (AEC) COMPARISON: PET/CT scan dated 03/11/[address] [facility] and CT abdomen/pelvis dated 01/20/23 from [...] chest CT performed will be reported separately. Neighborhood Planner (topogram) images: No additional findings. DIVISION OF RADIOLOGY Provider, [facility] - 09/03/2023 * * *Final Report* * * DATE OF EXAM: Sep 03 2023 2:31PM [facility] 0530 - CT ABD/PEL W IVCON / [...] (AEC) COMPARISON: PET/CT scan dated 03/11/[address] [facility] and CT abdomen/pelvis dated 01/20/23 from [...] chest CT performed will be reported separately. Neighborhood Planner (topogram) images: No additional findings. IMPRESSION IMPRESSION: [...] any questions regarding this interpretation, please call [phone]. If you are unable to reach us at the number above, please feel free to contact [facility] at [phone]. [facility] CT Abdomen and Pelvis W cont rast IVOrdered By: [facility] Provider on 09-03-[address] [facility] [address] CHEST W IVCONon 4 CT CHEST W IVCON * * *Final Report* * * DATE OF EXAM: Sep 03 2023 2:31PM [facility] 0539 - CT CHEST W IVCON / [...] (AEC) Comparison: PET/CT scan dated 03/11/[address] [facility]; CT chest dated 01/19/23 RESULT: Limitations: [...] any questions regarding this interpretation, please call [phone]. If you are unable to reach us at the number above, please feel free to contact [facility] at [phone]. [id number] Normal [facility] CT Chest W contrast Petty IMPRESSION: [...] any questions regarding this interpretation, please call [phone]. If you are unable to reach us at the number above, please feel free to contact [facility] at [phone]. DIVISION OF RADIOLOGY * * *Final Report* * * DATE OF EXAM: Sep 03 2023 2:31PM [facility] 0539 - CT CHEST W IVCON / [...] (AEC) Comparison: PET/CT scan dated 03/11/[address] [facility]; CT chest dated 01/19/23 RESULT: Limitations: [...] the abdomen findings. DIVISION OF RADIOLOGY Provider, Lis Henry [place] - 09/03/2023 * * *Final Report* * * DATE OF EXAM: Sep 03 2023 2:31PM [facility] 0539 - CT CHEST W IVCON / [...] (AEC) Comparison: PET/CT scan dated 03/11/[address] [facility]; CT chest dated 01/19/23 RESULT: Limitations: [...] any questions regarding this interpretation, please call [phone]. If you are unable to reach us at the number above, please feel free to contact [facility] at [phone]. [facility] System Cancer Ag19-9 SerPl-aCncon 0 09-03-2023 Cancer Ag 19-9 Qn 8.0 [arb'U]/mL Normal <36.0 [facility] Comment on above: Order Comment: Speci men Type: BLOOD SPECIMENOrdering Facility: [facility] Address: [address] [place] [address] Result Comment: [facility] er antigen 19-9 test is used as an aid in monitoring response to treatment or recurrence in patients with established pancreatic, hepatobiliary, or gastrointestinal malignancies. Clinical correlation is required. The CA 19-9 Antigen test was performed using the [employer] [place] [employer] DXI paramagnetic particle chemiluminescent immunoassay method. Results obtained with different assay methods or kits cannot be used interchangeably. Performed By: #### 2 4108-3 ####[facility] LABCLIA [id number] [place] [address] [place] Comprehensive metabolic 2000 panelOrdered By: Cody Bryson on 09-03-2023 Albumin [Mass/Vol] 3.8 g/dL Low 3.9 - 4.9 g/dL [facility] ALP [Catalytic activity/Vol] 126 U/L High 38 - 113 U/L [facility] ALT [Catalytic activity/Vol] 13 U/L 10 - 54 U/L [facility] Anion gap [Moles/Vol] 12 mmol/L 9 - 18 mmol/L [facility] AST [Catalytic activity/Vol] 16 U/L 14 - 40 U/L [facility] Bilirubin [Mass/Vol] 0.3 mg/dL 0.2 - 1 .3 mg/dL [facility] Calcium [Mass/Vol] 9.7 mg/dL 8.5 - 10. 2 mg/dL [facility] Chloride [Moles/Vol] 101 mmol/L 97 - 10 5 mmol/L [facility] CO2 [Moles/Vol] 22 mmol/L 22 - 30 mmol/L [facility] Creatinine [Mass/Vol] 0.58 mg/dL Low 0.73 - 1.22 mg/dL [facility] GFR/1.73 sq M.predicted among non-blacks MDRD (S/P/Bld) [Vol rate/Area] 108 mL/min/{1.73_m2} - PINF [facility] Comment on above: Estimated Glomerular Filtration Rate [...] 103 mg/dL High 74 - 99 mg/dL [facility] Comment on above: The [place] Diabete s Association (ADA) provides guidance for [...] Standards of Medical Care in Diabetes 2016, [place] Diabetes Association. Diabetes Care. 2016.39(Suppl 1). Interpretation and review of laboratory results Abnormal [facility] Potassium [Moles/Vol] 4.8 mmol/L 3.7 - 5.1 mmol/L [facility] Protein [Mass/Vol] 7.4 g/dL 6.3 - 8.0 g/dL [facility] Sodium [Moles/Vol] 135 mmol/L Low 136 - 144 mmol/L [facility] Urea nitrogen [Mass/Vol] 22 mg/dL 9 - 24 mg/dL [facility] Comprehensive metabolic 2000 panelon 09-03-2023 Albumin [Mass/Vol] 3.8 g/dL Low 3.9-4.9 [facility] Comment on above: Order Comment: Speci men Type: BLOOD SPECIMENOrdering Facility: [facility] Address: [address] [place] [address] Performed By: #### 2 4323-8 ####[facility] LABCLIA [id number] [place] [address] ALP [Catalytic activity/Vol] 126 U/L High 38-113 [facility] Comment on above: Order Comment: Speci men Type: BLOOD SPECIMENOrdering Facility: [facility] Address: [address] [place] [address] Performed By: #### 2 4323-8 ####[facility] LABCLIA [id number] [place] [address] ALT [Catalytic activity/Vol] 13 U/L Normal 10-54 [facility] Comment on above: Order Comment: Speci men Type: BLOOD SPECIMENOrdering Facility: [facility] Address: [address] [place] [address] Performed By: #### 2 4323-8 ####[facility] LABCLIA [id number] [place] [address] Anion gap [Moles/Vol] 12 mmol/L Normal 9-18 [facility] Comment on above: Order Comment: Speci men Type: BLOOD SPECIMENOrdering Facility: [facility] Address: [address] [place] [address] Performed By: #### 2 4323-8 ####[facility] LABCLIA [id number] [place] [address] AST [Catalytic activity/Vol] 16 U/L Normal 14-40 [facility] Comment on above: Order Comment: Speci men Type: BLOOD SPECIMENOrdering Facility: [facility] Address: [address] [place] [address] Performed By: #### 2 4323-8 ####[facility] LABCLIA [id number] [place] [address] Bilirubin [Mass/Vol] 0.3 mg/dL Normal 0.2-1.3 [facility] Comment on above: Order Comment: Speci men Type: BLOOD SPECIMENOrdering Facility: [facility] Address: [address] [place] [address] Performed By: #### 2 4323-8 ####[facility] LABCLIA [id number] [place] [address] Calcium [Mass/Vol] 9.7 mg/dL Normal 8.5-10.2 [facility] Comment on above: Order Comment: Speci men Type: BLOOD SPECIMENOrdering Facility: [facility] Address: [address] [place] [address] Performed By: #### 2 4323-8 ####[facility] LABCLIA [id number] [place] [address] Chloride [Moles/Vol] 101 mmol/L Normal 97-105 [facility] Comment on above: Order Comment: Speci men Type: BLOOD SPECIMENOrdering Facility: [facility] Address: [address] [place] [address] Performed By: #### 2 4323-8 ####[facility] LABCLIA [id number] [place] [address] CO2 [Moles/Vol] 22 mmol/L Normal 22-30 [facility] Comment on above: Order Comment: Speci men Type: BLOOD SPECIMENOrdering Facility: [facility] Address: [address] [place] [address] Performed By: #### 2 4323-8 ####[facility] LABCLIA [id number] [place] [address] Creatinine [Mass/Vol] 0.58 mg/dL Low 0.73-1.22 [facility] Comment on above: Order Comment: Speci men Type: BLOOD SPECIMENOrdering Facility: [facility] Address: [address] [place], [place] [address] Performed By: #### 2 4323-8 ####[facility] LABCLIA [id number] [place] [address] Creatinine and Glomerular filtration rate.predicted panel (S/P/Bld) 108 mL/min/1.73m??? Normal >=60 [facility] Comment on above: Order Comment: Frank real Type: BLOOD SPECIMENOrdering Facility: [facility] Address: [address] [place] [address] Result Comment: Megan mated Glomerular Filtration Rate [...] actual GFR. Performed By: #### 2 4323-8 ####[facility] LABCLIA [id number] [place] [address] Glucose [Mass/Vol] 103 mg/dL High 74-99 [facility] Comment on above: Order Comment: Frank real Type: BLOOD SPECIMENOrdering Facility: [facility] Address: [address] [place] [address] Result Comment: The [place] Diabetes Association (ADA) provides guidance for cutoff [...] Standards of Medical Care in Diabetes 2016, [place] Diabetes Association. Diabetes Care. 2016.39(Suppl 1). Performed By: #### 2 4323-8 ####[facility] LABCLIA [id number] [place] [address] Potassium [Moles/Vol] 4.8 mmol/L Normal 3.7-5.1 [facility] Comment on above: Order Comment: Speci men Type: BLOOD SPECIMENOrdering Facility: [facility] Address: [address] [place] [address] Performed By: #### 2 4323-8 ####[facility] LABCLIA [id number] [place] [address] Protein [Mass/Vol] 7.4 g/dL Normal 6.3-8.0 [facility] Comment on above: Order Comment: Speci men Type: BLOOD SPECIMENOrdering Facility: [facility] Address: [address] [place] [address] Performed By: #### 2 4323-8 ####[facility] LABCLIA [id number] [place] [address] Sodium [Moles/Vol] 135 mmol/L Low 136-144 [facility] Comment on above: Order Comment: Speci men Type: BLOOD SPECIMENOrdering Facility: [facility] Address: [address] [place] [address] Performed By: #### 2 4323-8 ####[facility] LABCLIA [id number] [place] [address] Urea nitrogen [Mass/Vol] 22 mg/dL Normal 9-24 [facility] Comment on above: Order Comment: Speci men Type: BLOOD SPECIMENOrdering Facility: [facility] Address: [address] [place] [address] Performed By: #### 2 4323-8 ####[facility] LABCLIA [id number] [place] [address] Eosinophils/100 WBC Auto (Bl d)on 09-03-2023 Eosinophils/100 WBC (Bld) 2.1 % [facility] Erythrocyte distribution wid th Auto (RBC) [Ratio]on 09-03-2023 Erythrocyte distribution width (RBC) [Ratio] 15.4 % 11.5-15.0 [facility] Ferritin SerPl-mCncon 2023 Ferritin [Mass/Vol] 314.0 ng/mL Normal 30.3-565.7 [facility] Comment on above: Order Comment: Speci men Type: BLOOD SPECIMENOrdering Facility: [facility] Address: [address] [place] [address] Performed By: #### 5 0190-8, 2132-02, 2275-09 ####[facility] LABCLIA [id number] [place] [address] [place] Hematocrit Auto (Bld) [Volum e fraction]on 09-03-2023 Hematocrit (Bld) [Volume fraction] 37.5 % 39.0-51.0 [facility] Hemoglobin [Mass/volume] in Bloodon 09-03-2023 Hemoglobin (Bld) [Mass/Vol] 12.0 g/dL 13.0-17.0 [facility] Iron and Iron binding capaci ty panelon 09-03-2023 Iron [Mass/Vol] 27 ug/dL Low 41-186 [facility] Comment on above: Order Comment: Speci men Type: BLOOD SPECIMENOrdering Facility: [facility] Address: [address] [place] [address] Performed By: #### 5 0190-8, 2132-02, 2275-09 ####[facility] LABCLIA [id number] [place] [address] [place] Iron binding capacity [Mass/Vol] 254 ug/dL Normal 232-386 [facility] Comment on above: Order Comment: Speci men Type: BLOOD SPECIMENOrdering Facility: [facility] Address: [address] [place] [address] Performed By: #### 5 0190-8, 9, 2275-09 ####[facility] LABCLIA [id number] [place] [address] [place] Iron/TIBC [Molar ratio] 10.6 % Low 15.0-57.0 [facility] Comment on above: Order Comment: Speci men Type: BLOOD SPECIMENOrdering Facility: [facility] Address: [address] [place] [address] Performed By: #### 5 0190-8, 2132-9, 2276-4 ####[facility] LABCLIA [id number] [place] [address] [place] Iron binding capacity [Mass/ volume] in Serum or Plasmaon 09-03-2023 Iron binding capacity [Mass/Vol] 254 ug/dL 232-386 [facility] Iron saturation [Mass Fracti on] in Serum or Plasmaon 09-03-2023 Iron saturation [Mass fraction] 10.6 % 15.0-57.0 [facility] - Chemistry and C hemistry - challengeon 09-03-2023 Albumin [Mass/Vol] 3.8 g/dL 3.9-4.9 [facility] ALP [Catalytic activity/Vol] 126 U/L 38-113 [facility] ALT [Catalytic activity/Vol] 13 U/L 10-54 [facility] AST [Catalytic activity/Vol] 16 U/L 14-40 [facility] Bilirubin [Mass/Vol] 0.3 mg/dL 0.2-1.3 [facility] Calcium [Mass/Vol] 9.7 mg/dL 8.5-10.2 [facility] Chloride [Moles/Vol] 101 mmol/L 97-105 [facility] CO2 [Moles/Vol] 22 mmol/L 22-30 [facility] Cobalamin (Vitamin B12) [Mass/Vol] 758 pg/mL 232-1245 [facility] Creatinine [Mass/Vol] 0.58 mg/dL 0.73-1.22 [facility] Ferritin [Mass/Vol] 314.0 ng/mL 30.3-565.7 [facility] Glucose [Mass/Vol] 103 mg/dL 74-99 [facility] Comment on above: The [place] Diabete s Association (ADA) provides guidance for [...] Standards of Medical Care in Diabetes 2016, [place] Diabetes Association. Diabetes Care. 2016.39(Suppl 1). Iron [Mass/Vol] 27 ug/dL 41-186 [facility] Potassium [Moles/Vol] 4.8 mmol/L 3.7-5.1 [facility] Sodium [Moles/Vol] 135 mmol/L 136-144 [facility] Urea nitrogen [Mass/Vol] 22 mg/dL 9-24 [facility] - Hematology and Cell countson 09-03-2023 Eosinophils (Bld) [#/Vol] 0.22 10*3/uL <0.46 [facility] Immature granulocytes (Bld) [#/Vol] 0.03 10*3/uL <0.10 [facility] Immature granulocytes/100 WBC (Bld) 0.3 % [facility] Leukocytes [#/volume] correc missael for nucleated erythrocytes in Blood by Automated counon 09-03-2023 WBC corrected for nucl RBC Auto (Bld) [#/Vol] 10.43 k/uL 3.70-11.00 [facility] Lymphocytes Auto (Bld) [#/Vo l]on 09-03-2023 Lymphocytes (Bld) [#/Vol] 1.43 10*3/uL 1.00-4.00 [facility] Lymphocytes/100 WBC Auto (Bl d)on 09-03-2023 Lymphocytes/100 WBC (Bld) 13.7 % [facility] MCH Auto (RBC) [Entitic mass ]on 09-03-2023 MCH (RBC) [Entitic mass] 31.1 pg 26.0-34.0 [facility] MCHC Auto (RBC) [Mass/Vol]on 09-03-2023 MCHC (RBC) [Mass/Vol] 32.0 g/dL 30.5-36.0 [facility] MCV Auto (RBC) [Entitic vol] on 09-03-2023 MCV (RBC) [Entitic vol] 97.2 fL 80.0-100.0 [facility] Monocytes Auto (Bld) [#/Vol] on 09-03-2023 Monocytes (Bld) [#/Vol] 0.46 10*3/uL <0.87 [facility] Monocytes/100 WBC Auto (Bld) on 09-03-2023 Monocytes/100 WBC (Bld) 4.4 % [facility] Neutrophils Auto (Bld) [#/Vo l]on 09-03-2023 Neutrophils (Bld) [#/Vol] 8.27 10*3/uL 1.45-7.50 [facility] Neutrophils/100 WBC Auto (Bl d)on 09-03-2023 Neutrophils/100 WBC (Bld) 79.3 % [facility] No Panel Informationon 09-02 Radiology Study observation (narrative) [facility] Estimated GFR (CKD-EPI) 108 mL/min/1.73m??? >=60 [facility] Comment on above: Estimated Glomerular Filtration [...] 09-03-2023 Nucleated RBC (Bld) [#/Vol] 10*3/uL <0.01 [facility] Nucleated erythrocytes [Pres ence] in Blood by Automated counton 09-03-2023 Nucleated RBC Auto Ql (Bld) 0.0 /100{WBC} [facility] Platelet mean volume Auto (B ld) [Entitic vol]on 09-03-2023 Platelet mean volume (Bld) [Entitic vol] 9.2 fL 9.0-12.7 [facility] Platelets Auto (Bld) [#/Vol] on 09-03-2023 Platelets (Bld) [#/Vol] 359 10*3/uL 150-400 [facility] Protein [Mass/volume] in Ser um or Plasmaon 09-03-2023 Protein [Mass/Vol] 7.4 g/dL 6.3-8.0 [facility] RBC Auto (Bld) [#/Vol]on RBC (Bld) [#/Vol] 3.86 10*6/uL 4.20-6.00 [facility] Serum or plasma anion gap de terminationon 09-03-2023 Anion gap [Moles/Vol] 12 mmol/L 9-18 [facility] Serum or plasma cancer antig en 19-9 measurement (units/volume)on 09-03-2023 Cancer Ag 19-9 Qn 8.0 [arb'U]/mL <36.0 [facility] Comment on above: Cancer antigen 19-9 [...] kits cannot be used interchangeably. Vit B12 SerPl-ncon 09-02-2 024 Cobalamin (Vitamin B12) [Mass/Vol] 758 pg/mL Normal 232-1245 [facility] Comment on above: Order Comment: Speci men Type: BLOOD SPECIMENOrdering Facility: [facility] Address: [address] [place] [address] Performed By: #### 5 0190-8, 2132-9, 2276-4 ####[facility] LABCLIA [id number] [place] [address] [place] CNPRoxann 09-02-2023 CNPN Telephone (HEMASA) ROCIO JACKSON ([id number]) 1955 M Date Time Provider Department 09/02/23 CASSANDRA HERNANDEZ CORINE During your visit today, we recorded the following information about you: Cassandra Hernandez RN 09/02/2023 11:53 AM Signed Creon cost is 1500 for a 3 mo supply. Pharmacist at [facility] called around for Zenpep (creon substitute) and DDM, Remy is able to fill a 30 day supply for 600 dollars. Pharmacy: are there any programs to assist pt? Chris: pt has an appt with you tomorrow to discuss further FRANSICO Murdock Laura, [facility] 09/02/2023 4:32 PM Signed We can initiate [...] we will update her soon. [facility] 09/03/2023 4:01 PM Signed Printed free drug application for Cremeena from [employer] website: left message for patient's daughter to return call to pharmacy to update. Application needs patient's prescription card info, household size, income, consent, and a signature prior to faxing. Dr. May's portion is in his folder awaiting his signature. Tosin Zendejas [facility] Cassandra Hernandez RN 09/04/2023 8:15 AM Signed DaughterShiela called back to discuss free drug program information. Please call FRANSICO Murdock Kathryn, [facility] 09/04/2023 1:09 PM Signed Spoke with Shiela this morning, advised her we need someone to stop in and sign application. Shiela gave me Rocio's RX insurance information and told me her brother will stop in to sign paperwork and can provide annual income. Advised Shiela that this process with Creon can take up to a month to complete and that in the mean time there is a rx for Rocio at the [facility] in [place]. She verbalized understanding. Artur Reynolds PharmD, BCOP Imelda Reynolds, [facility] 09/10/2023 9:34 AM Signed Rocio approved for free Creon until , shipment should be received in the next 5-7 days. Call placed to Shiela to let her know. I left a message for her. Artur Reynolds PharmD, NANCYOP Allergies As of Date: 09/02/2023 (No Known Allergies) Date Reviewed: 06/23/2023 Reviewed by: Rola Gordon APRN.LUMBER TAILER - Fully Assessed Reason for Visit: Medication Problem [65] Prescriptions as of 09/10/2023 - irivhm-zpasvoxm-lerrvll (ZENPEP) 25,000-79,000- 105,000 unit delayed release capsule Take 2 capsules by mouth three times a day with meals. - metoclopramide HCl (REGLAN) 10 mg tablet Take 1 tablet by mouth three times a day with meals. - zjlxsf-qdxnezvv-bmkawdc (CREON 24) 24,000-76,000 -120,000 unit delayed release [...] Status:Closed by IMELDA REYNOLDS on 09/04/23 Normal [facility] EGD / Colonoscopyon 08-05-19 [facility] 08-05-2023 L Specimen: [id number] Re ceived: 08/05/23 Status: MADDISON Negro Num: [id number] Spec Type: Surgical Subm Dr: Rick Zapata DO Tissues: A Small Intestine - Biopsy/Polyp (DUODENUM) B Colon Biopsy (ANTRUM BX) Procedures: HE/4, Gross/Micro L4/2 Age/ Patient Sex Location Account Attending Physician Rocio Jackson 68/M LABELL [id number] Rick Zapata DO SPEC NUM: [id number] RECD: 08/05/23 STATUS: PETERRichard NEGRO NUM: [id number] JAY: 08/05/[address]: Rick Zapata DO ENTERED: 08/05/23 [facility] DR: Fidel,Lab SPEC TYPE: Surgical DEPT: [...] [id number] Received: 08/05/23 Status: MADDISON Negro Num: [id number] Spec Type: Surgical Subm Dr: Rick Zapata DO Tissues: A Small Intestine - Biopsy/Polyp (DUODENUM) B Colon Biopsy (ANTRUM BX) Procedures: HE/Rocío, Gross/Micro L4/2 -------- Patient: Rocio Jackson [id number] (Continued) -------- Specimen: [id number] Received: 08/05/23 (Continued) Signed (signature on file) Alberto Barrientos MD 08/07/23 7367 -------- Specimen: [id number] Received: 08/05/23 Status: MADDISON Negro Num: [id number] Spec Type: Surgical Subm Dr: Rick Zapata DO Tissues: A Small Intestine - Biopsy/Polyp (DUODENUM) B Colon Biopsy (ANTRUM BX) Procedures: HE/4, Gross/Micro L4/2 -------- Patient: Rocio Jackson [id number] (Continued) -------- Specimen: [id number] Received: 08/05/23 (Continued) [...] in one cassette labeled B1. CPT Codes 70617c8 -------- -------- Specimen: [id number] Received: 08/05/23 Status: MADDISON Griggsrasheeda Num: [id number] Spec Type: Surgical Subm Dr: Rick Zapata DO Tissues: A Small Intestine - Biopsy/Polyp (DUODENUM) B Colon Biopsy (ANTRUM BX) Procedures: Vanessa ROMAN/Davina L4/2 -------- Patient: Rocio Jackson [id number] (Continued) -------- Signed (signature on file) Alberto Barrientos MD 08/07/23 9536 [facility] Surgical PathologyOrdered By : Mary Sinha on 08-05-2023 [facility] CBC W Auto Differential pane l (Bld)on 03-11-2023 Basophils (Bld) [#/Vol] [facility] Basophils/100 WBC (Bld) 0.2 % [facility] Differential cell count method Nom (Bld) Auto [facility] Eosinophils (Bld) [#/Vol] 0.18 10*3/uL [facility] Eosinophils/100 WBC (Bld) 2.9 % [facility] Erythrocyte distribution width (RBC) [Ratio] 13.5 % 11.5 - 15.0 % [facility] Hematocrit (Bld) [Volume fraction] 32.3 % Low 39.0 - 51.0 % [facility] Hemoglobin (Bld) [Mass/Vol] 10.3 g/dL Low 13.0 - 17.0 g/dL [facility] Immature granulocytes (Bld) [#/Vol] [facility] Immature granulocytes/100 WBC (Bld) 0.3 % [facility] Interpretation and review of laboratory results Abnormal [facility] Lymphocytes (Bld) [#/Vol] 1.81 10*3/uL [facility] Lymphocytes/100 WBC (Bld) 28.8 % [facility] MCH (RBC) [Entitic mass] 31.6 pg 26.0 - 34.0 pg [facility] MCHC (RBC) [Mass/Vol] 31.9 g/dL 30.5 - 36.0 g/dL [facility] MCV (RBC) [Entitic vol] 99.1 fL 80.0 - 100.0 fL [facility] Monocytes (Bld) [#/Vol] 0.66 10*3/uL [facility] Monocytes/100 WBC (Bld) 10.5 % [facility] Neutrophils (Bld) [#/Vol] 3.60 10*3/uL [facility] Neutrophils/100 WBC (Bld) 57.3 % [facility] Nucleated RBC (Bld) [#/Vol] [facility] Nucleated RBC/100 WBC (Bld) [Ratio] 0.0 % /100 WBC [facility] Platelet mean volume (Bld) [Entitic vol] 9.3 fL 9.0 - 12.7 fL [facility] Platelets (Bld) [#/Vol] 298 10*3/uL [facility] RBC (Bld) [#/Vol] 3.26 10*6/uL Low 4.20 - 6.00 m/uL [facility] WBC (Bld) [#/Vol] 6.28 10*3/uL [facility] Cobalamin (Vitamin B12) [Mas s/Vol]on 03-11-2023 Interpretation and review of laboratory results Normal [facility] Comprehensive metabolic 2000 panelOrdered By: Cody Bryson on 03-11-2023 Albumin [Mass/Vol] 3.5 g/dL Low 3.9 - 4.9 g/dL [facility] ALP [Catalytic activity/Vol] 107 U/L 38 - 113 U/L [facility] ALT [Catalytic activity/Vol] 17 U/L 10 - 54 U/L [facility] Anion gap [Moles/Vol] 11 mmol/L 9 - 18 mmol/L [facility] AST [Catalytic activity/Vol] 18 U/L 14 - 40 U/L [facility] Bilirubin [Mass/Vol] 0.3 mg/dL 0.2 - 1 .3 mg/dL [facility] Calcium [Mass/Vol] 9.3 mg/dL 8.5 - 10. 2 mg/dL [facility] Chloride [Moles/Vol] 106 mmol/L High 97 - 10 5 mmol/L [facility] CO2 [Moles/Vol] 22 mmol/L 22 - 30 mmol/L [facility] Creatinine [Mass/Vol] 0.77 mg/dL 0.73 - 1.22 mg/dL [facility] GFR/1.73 sq M.predicted among non-blacks MDRD (S/P/Bld) [Vol rate/Area] 99 mL/min/{1.73_m2} - PINF [facility] Comment on above: Estimated Glomerular Filtration Rate [...] 117 mg/dL High 74 - 99 mg/dL [facility] Comment on above: The [place] Diabete [place] Association (ADA) provides guidance for [...] Standards of Medical Care in Diabetes 2016, [place] Diabetes Association. Diabetes Care. 2016.39(Suppl 1). Interpretation and review of laboratory results Abnormal [facility] Potassium [Moles/Vol] 4.2 mmol/L 3.7 - 5.1 mmol/L [facility] Protein [Mass/Vol] 6.8 g/dL 6.3 - 8.0 g/dL [facility] Sodium [Moles/Vol] 139 mmol/L 136 - 144 mmol/L [facility] Urea nitrogen [Mass/Vol] 22 mg/dL 9 - 24 mg/dL [facility] FERRITIN BLDon 03-11-2023 Ferritin [Mass/Vol] 302.0 ng/mL 30.3 - 565.7 ng/mL [facility] Ferritin [Mass/Vol]on 2022 Interpretation and review of laboratory results Normal [facility] GLUCOSE, BLOOD (POC)on 03-11 Glucose [Mass/Vol] 104 mg/dL Abnormal 74 - 99 mg/dL [facility] Comment on above: Location:[facility], [address] [place] [address] , [place], [place], [facility] The Accu-Chek Inform II glucose meter [...] Interpretation and review of laboratory results Abnormal [facility] Iron and Iron binding capaci ty panelon 03-11-2023 Interpretation and review of laboratory results Abnormal [facility] Iron [Mass/Vol] 37 ug/dL Low 41 - 186 ug/dL [facility] Iron binding capacity [Mass/Vol] [facility] Comment on above: Unable to calculate due to hemolysis. Iron/TIBC [Molar ratio] [facility] Comment on above: Unable to calculate due to hemolysis. [facility] PET+CT Guidance for localiza tion of tumor [...] any questions regarding this interpretation, please call [phone]. If you are unable to reach us at the number above, please feel free to contact [facility] eRadiology at [phone]. DIVISION OF RADIOLOGY * * *Final Report* [...] Degenerative arthritic change. DIVISION OF RADIOLOGY Provider, [facility] - 03/11/2023 * * *Final Report* * [...] any questions regarding this interpretation, please call [phone]. If you are unable to reach us at the number above, please feel free to contact [facility] at [phone]. [facility] Radiology Study observation (narrative) [facility] PET+CT Guidance for localiza tion of tumor of Skull base to mid-thigh-- W [id number] IVOrdered By: [facility] Provider on 03-11-2023 [facility] VITAMIN B12 BLOODon 03-11-20 Cobalamin (Vitamin B12) [Mass/Vol] 758 pg/mL 232 - 1245 pg/mL [facility] Albumin Levelon 02-10-2023 Albumin [Mass/Vol] 3.4 g/dL Low 3.5-5.7 [facility] Comment on above: Order Comment: Diagn osis: E11.9, I10, E46, D64.9 Comment: [id number], DECLAN, RM112, HM, 02/06/23 Result Comment: PERF ORMED BY: [place] [address] PATHOLOGIST ASSET MANAGER ESTIVEN GENTILE M.D. Performed By: #### A LB, CBC, BMP #### [facility] [address] [place] [address] [place] Albumin [Mass/volume] in Ser um or Plasma by Bromocresol green (BCG) dye binding methoOrdered By: Adriane Espitia on 02-10-2023 Albumin BCG dye [Mass/Vol] 3.4 g/dL 3.5-5.7 [facility] Basic Metabolic Panelon 01-27 Anion gap [Moles/Vol] 11.5 mmol/L Normal 6.0-15.0 [facility] Comment on above: Order Comment: Diagn osis: E11.9, I10, E46, D64.9 Comment: [id number], DECLAN, RM112, HM, 02/06/23 Performed By: #### A LB, CBC, BMP #### [facility] [address] [place] [id number] [place] Calcium [Mass/Vol] 8.8 mg/dL Normal 8.6-10.3 [facility] Comment on above: Order Comment: Diagn osis: E11.9, I10, E46, D64.9 Comment: [id number], BLADIMIRZ, RM112, HM, 02/06/23 Performed By: #### A LB, CBC, BMP #### [facility] [address] [place] [address] [place] Chloride [Moles/Vol] 103 mmol/L Normal 98-107 [facility] Comment on above: Order Comment: Diagn osis: E11.9, I10, E46, D64.9 Comment: [id number], OGONTZ, RM112, HM, 02/06/23 Performed By: #### A LB, CBC, BMP #### [facility] [address] [place] [id number] [facility] CO2 [Moles/Vol] 25.2 mmol/L Normal 21.0-31.0 [facility] Comment on above: Order Comment: Diagn osis: E11.9, I10, E46, D64.9 Comment: [id number], OGONTZ, RM112, HM, 02/06/23 Performed By: #### A LB, CBC, BMP #### [facility] [address] [place] [id number] [facility] Creatinine [Mass/Vol] 0.65 mg/dL Low 0.70-1.30 [facility] Comment on above: Order Comment: Diagn osis: E11.9, I10, E46, D64.9 Comment: [id number], OGONTZ, RM112, HM, 02/06/23 Performed By: #### A LB, CBC, BMP #### [facility] [address] [place] [address] [place] GFR/1.73 sq M.predicted MDRD (S/P/Bld) [Vol rate/Area] mL/min/{1.73_m2} [facility] Comment on above: Order Comment: Diagn osis: E11.9, I10, E46, D64.9 Comment: [id number], OGONTZ, RM112, HM, 02/06/23 Performed By: #### A LB, CBC, BMP #### [facility] [address] [place] [address] [place] Glucose [Mass/Vol] 102 mg/dL High 70-100 [facility] Comment on above: Order Comment: Diagn osis: E11.9, I10, E46, D64.9 Comment: [id number], OGMIKHAILZ, RM112, , 02/06/23 Result Comment: [facility] Glucose Reference Range is dependent on time and content of last meal. Glucose of more than 200 mg/dL in a nonstressed, ambulatory subject supports the diagnosis of Diabetes Mellitus. ADA recommended reference range Performed By: #### A LB, CBC, BMP #### [facility] [address] Potassium [Moles/Vol] 4.7 mmol/L Normal 3.5-5.1 [facility] Comment on above: Order Comment: Diagn osis: E11.9, I10, E46, D64.9 Comment: [id number], DECLAN, RM112, , 02/06/23 Performed By: #### A LB, CBC, BMP #### [address] Sodium [Moles/Vol] 135 mmol/L Low 136-145 [facility] Comment on above: Order Comment: Diagn osis: E11.9, I10, E46, D64.9 Comment: [id number], OGMIKHAILZ, RM112, , 02/06/23 Performed By: #### A LB, CBC, BMP #### [address] Urea nitrogen [Mass/Vol] 19 mg/dL Normal 7-25 [facility] Comment on above: Order Comment: Diagn osis: E11.9, I10, E46, D64.9 Comment: [id number], OGONTZ, RM112, , 02/06/23 Performed By: #### A LB, CBC, BMP #### [facility] [address] [place] [address] Basophils Auto (Bld) [#/Vol] Ordered By: Adriane Espitia on 02-10-2023 Basophils (Bld) [#/Vol] 0.0 10*3/uL 0.0-0.2 [facility] Basophils/100 WBC Auto (Bld) Ordered By: Adriane Espitia on 02-10-2023 Basophils/100 WBC (Bld) 0.4 % . [facility] Calcium [Mass/volume] in Ser um or PlasmaOrdered By: Adriane Espitia on 02-10-2023 Calcium [Mass/Vol] 8.8 mg/dL 8.6-10.3 [facility] Carbon dioxide, total [Moles /volume] in Serum or PlasmaOrdered By: Adriane Espitia on 02-10-2023 CO2 [Moles/Vol] 25.2 mmol/L 21.0-31.0 [facility] Chloride [Moles/volume] in S brandi or PlasmaOrdered By: Adriane Espitia on 02-10-2023 Chloride [Moles/Vol] 103 mmol/L 98-107 [facility] Complete Blood Count Auto Di ffon 02-10-2023 Basophils (Bld) [#/Vol] 0.0 10*3/uL Normal 0.0-0.2 [facility] Comment on above: Order Comment: Diagn osis: E11.9, I10, E46, D64.9 Comment: [id number], DECLAN, RMRobinson, , 02/06/23 Result Comment: PERF ORMED BY: [place] [address] PATHOLOGIST ASSET MANAGER ESTIVEN GENTILE M.D. Performed By: #### A LB, CBC, BMP #### [facility] [address] [place] [address] Basophils/100 WBC (Bld) 0.4 % Normal . [facility] Comment on above: Order Comment: Diagn osis: E11.9, I10, E46, D64.9 Comment: [id number], DECLAN, RMRobinson, , 02/06/23 Performed By: #### A LB, CBC, BMP #### [facility] [address] [place] [address] Eosinophils (Bld) [#/Vol] 0.1 10*3/uL Normal 0.0-0.45 [facility] Comment on above: Order Comment: Diagn osis: E11.9, I10, E46, D64.9 Comment: [id number], DECLAN, RM112, , 02/06/23 Performed By: #### A LB, CBC, BMP #### [address] Eosinophils/100 WBC (Bld) 3.1 % Normal . [facility] Comment on above: Order Comment: Diagn osis: E11.9, I10, E46, D64.9 Comment: [id number], OGONTZ, RM112, HM, 02/06/23 Performed By: #### A LB, CBC, BMP #### [address] Erythrocyte distribution width (RBC) [Ratio] 14.4 % Normal 12.0-14.8 [facility] Comment on above: Order Comment: Diagn osis: E11.9, I10, E46, D64. Comment: [id number], OGONTZ, RM112, HM, 02/06/23 Performed By: #### A LB, CBC, BMP #### [address] Hematocrit (Bld) [Volume fraction] 30.9 % Low 38.8-50.0 [facility] Comment on above: Order Comment: Diagn osis: E11.9, I10, E46, D64.9 Comment: [id number], OGONTZ, RM112, HM, 02/06/23 Performed By: #### A LB, CBC, BMP #### [address] Hemoglobin (Bld) [Mass/Vol] 10.3 g/dL Low 13.0-17.0 [facility] Comment on above: Order Comment: Diagn osis: E11.9, I10, E46, D64.9 Comment: [id number], OGONTZ, RM112, HM, 02/06/23 Performed By: #### A LB, CBC, BMP #### [address] Lymphocytes (Bld) [#/Vol] 1.3 10*3/uL Normal 1.00-4.8 [facility] Comment on above: Order Comment: Diagn osis: E11.9, I10, E46, D64.9 Comment: [id number], OGONTZ, RM112, , 02/06/23 Performed By: #### A LB, CBC, BMP #### [facility] [address] Lymphocytes/100 WBC (Bld) 28.3 % Normal . [facility] Comment on above: Order Comment: Diagn osis: E11.9, I10, E46, D64.9 Comment: [id number], OGONTZ, RM112, , 02/06/23 Performed By: #### A LB, CBC, BMP #### [address] MCH (RBC) [Entitic mass] 32.0 pg Normal 27.5-35.2 [facility] Comment on above: Order Comment: Diagn osis: E11.9, I10, E46, D64. Comment: [id number], OGONTZ, RM112, , 02/06/23 Performed By: #### A LB, CBC, BMP #### [address] MCV (RBC) [Entitic vol] 96.3 fL Normal 83.5-101 [facility] Comment on above: Order Comment: Diagn osis: E11.9, I10, E46, D64. Comment: [id number], OGMIKHAILZ, RM112, , 02/06/23 Performed By: #### A LB, CBC, BMP #### [address] Mean Corpuscular HGB Conc 33.3 g/dL Normal 32.5-35.6 [facility] Comment on above: Order Comment: Diagn osis: E11.9, I10, E46, D64. Comment: [id number], OGONTZ, RM112, , 02/06/23 Performed By: #### A LB, CBC, BMP #### [address] Monocytes (Bld) [#/Vol] 0.5 10*3/uL Normal 0.0-0.8 [facility] Comment on above: Order Comment: Diagn osis: E11.9, I10, E46, D64.9 Comment: [id number], OGONTZ, RM112, , 02/06/23 Performed By: #### A LB, CBC, BMP #### [facility] [address] [place] [phone] [facility] Monocytes/100 WBC (Bld) 10.1 % Normal . [facility] Comment on above: Order Comment: Diagn osis: E11.9, I10, E46, D64.9 Comment: [id number], OGONTZ, RM112, HM, 02/06/23 Performed By: #### A LB, CBC, BMP #### [facility] [address] [place] [address] [place] Neutrophils (Bld) [#/Vol] 2.7 10*3/uL Normal 1.8-7.7 [facility] Comment on above: Order Comment: Diagn osis: E11.9, I10, E46, D64.9 Comment: [id number], OGONTZ, RM112, , 02/06/23 Performed By: #### A LB, CBC, BMP #### [facility] [address] Neutrophils/100 WBC (Bld) 58.1 % Normal . [facility] Comment on above: Order Comment: Diagn osis: E11.9, I10, E46, D64.9 Comment: [id number], OGONTZ, RM112, , 02/06/23 Performed By: #### A LB, CBC, BMP #### [facility] [address] [place] [phone] [place] NRBC% 0.0 /100{WBC} Normal 0-0.5 [facility] Comment on above: Order Comment: Diagn osis: E11.9, I10, E46, D64.9 Comment: [id number], OGONTZ, RM112, , 02/06/23 Performed By: #### A LB, CBC, BMP #### [facility] [address] [place] [address] [place] Platelet mean volume (Bld) [Entitic vol] 7.6 fL Normal 6.6-10.1 [facility] Comment on above: Order Comment: Diagn osis: E11.9, I10, E46, D64.9 Comment: [id number], OGONTZ, RM112, HM, 02/06/23 Performed By: #### A LB, CBC, BMP #### [facility] [address] Platelets (Bld) [#/Vol] 281 10*3/uL Normal 150-450 [facility] Comment on above: Order Comment: Diagn osis: E11.9, I10, E46, D64.9 Comment: [id number], OGONTZ, RM112, HM, 02/06/23 Performed By: #### A LB, CBC, BMP #### [facility] [address] [place] [address] RBC (Bld) [#/Vol] 3.21 10*6/uL Low 3.90-5.60 [facility] Comment on above: Order Comment: Diagn osis: E11.9, I10, E46, D64.9 Comment: [id number], OGONTZ, RM112, HM, 02/06/23 Performed By: #### A LB, CBC, BMP #### [facility] [address] [place] [address] WBC (Bld) [#/Vol] 4.7 10*3/uL Normal 4.1-10.5 [facility] Comment on above: Order Comment: Diagn osis: E11.9, I10, E46, D64.9 Comment: [id number], OGONTZ, RM112, HM, 02/06/23 Performed By: #### A LB, CBC, BMP #### [facility] [address] Creatinine [Mass/volume] in Serum or PlasmaOrdered By: Adriane Espitia on 02-10-2023 Creatinine [Mass/Vol] 0.65 mg/dL 0.70-1.30 [facility] Eosinophils Auto (Bld) [#/Vo l]Ordered By: Adriane Espitia on 02-10-2023 Eosinophils (Bld) [#/Vol] 0.1 10*3/uL 0.0-0.45 [facility] Eosinophils/100 WBC Auto (Bl d)Ordered By: Adriane Espitia on 02-10-2023 Eosinophils/100 WBC (Bld) 3.1 % . [facility] Erythrocyte distribution wid th Auto (RBC) [Ratio]Ordered By: Adriane Espitia on 02-10-2023 Erythrocyte distribution width (RBC) [Ratio] 14.4 % 12.0-14.8 [facility] Glucose [Mass/volume] in Ser um or PlasmaOrdered By: Adriane Espitia on 02-10-2023 Glucose [Mass/Vol] 102 mg/dL 70-100 [facility] Comment on above: ADA recommended refe rence rangeRandom Glucose Reference Range is dependent on time and content of last meal. Glucose of more than 200 mg/dL in a nonstressed, ambulatory subject supports the diagnosis of Diabetes Mellitus. Hematocrit Auto (Bld) [Volum e fraction]Ordered By: Adriane Espitia on 02-10-2023 Hematocrit (Bld) [Volume fraction] 30.9 % 38.8-50.0 [facility] Hemoglobin [Mass/volume] in BloodOrdered By: Adriane Espitia on 02-10-2023 Hemoglobin (Bld) [Mass/Vol] 10.3 g/dL 13.0-17.0 [facility] Leukocytes [#/volume] correc missael for nucleated erythrocytes in Blood by Automated counOrdered By: Adriane Espitia on 02-10-2023 WBC corrected for nucl RBC Auto (Bld) [#/Vol] 4.7 10*3/uL 4.1-10.5 [facility] Lymphocytes Auto (Bld) [#/Vo l]Ordered By: Adriane Espitia on 02-10-2023 Lymphocytes (Bld) [#/Vol] 1.3 10*3/uL 1.00-4.8 [facility] Lymphocytes/100 WBC Auto (Bl d)Ordered By: Adriane Espitia on 02-10-2023 Lymphocytes/100 WBC (Bld) 28.3 % . [facility] MCH Auto (RBC) [Entitic mass ]Ordered By: Adriane Espitia on 02-10-2023 MCH (RBC) [Entitic mass] 32.0 pg 27.5-35.2 [facility] MCHC Auto (RBC) [Mass/Vol]Or dered By: Adriane Espitia on 02-10-2023 MCHC (RBC) [Mass/Vol] 33.3 g/dL 32.5-35.6 [facility] MCV Auto (RBC) [Entitic vol] Ordered By: Adriane Espitia on 02-10-2023 MCV (RBC) [Entitic vol] 96.3 fL 83.5-101 [facility] Monocytes Auto (Bld) [#/Vol] Ordered By: Adriane Espitia on 02-10-2023 Monocytes (Bld) [#/Vol] 0.5 10*3/uL 0.0-0.8 [facility] Monocytes/100 WBC Auto (Bld) Ordered By: Adriane Espitia on 02-10-2023 Monocytes/100 WBC (Bld) 10.1 % . [facility] Neutrophils Auto (Bld) [#/Vo l]Ordered By: Adriane Espitia on 02-10-2023 Neutrophils (Bld) [#/Vol] 2.7 10*3/uL 1.8-7.7 [facility] Neutrophils/100 WBC Auto (Bl d)Ordered By: Adriane Espitia on 02-10-2023 Neutrophils/100 WBC (Bld) 58.1 % . [facility] No Panel InformationOrdered By: Adriane Espitia on 02-10-2023 Estimated GFR (CKD-EPI) > 60.0 mL/Min [facility] Creatinine Clearance (Chem N/A [facility] Nucleated erythrocytes [Pres ence] in Blood by Automated countOrdered By: Adriane Espitia on 02-10-2023 Nucleated RBC Auto Ql (Bld) 0.0 /100{WBC} 0-0.5 [facility] Platelet mean volume Auto (B ld) [Entitic vol]Ordered By: Adriane Espitia on 02-10-2023 Platelet mean volume (Bld) [Entitic vol] 7.6 fL 6.6-10.1 [facility] Platelets Auto (Bld) [#/Vol] Ordered By: Adriane Espitia on 02-10-2023 Platelets (Bld) [#/Vol] 281 10*3/uL 150-450 [facility] Potassium [Moles/volume] in Serum or PlasmaOrdered By: Adriane Espitia on 02-10-2023 Potassium [Moles/Vol] 4.7 mmol/L 3.5-5.1 [facility] RBC Auto (Bld) [#/Vol]Ordere d By: Adriane Espitia on 02-10-2023 RBC (Bld) [#/Vol] 3.21 10*6/uL 3.90-5.60 [facility] Relevant diagnostic tests/la boratory data Narrativeon 02-10-2023 Albumin [Mass/Vol] 3.4 g/dL Low 3.5-5.7 [facility] Work Phone: Anion gap [Moles/Vol] 11.5 mmol/L 6.0-15.0 [facility] Work Phone: Basophils (Bld) [#/Vol] 0 10*3/uL 0.0-0.2 [facility] Work Phone: Basophils/100 WBC (Bld) 0.4 % . [facility] Work Phone: Calcium [Mass/Vol] 8.8 mg/dL 8.6-10.3 [facility] Work Phone: Chloride [Moles/Vol] 103 mmol/L 98-107 [facility] Work Phone: CO2 [Moles/Vol] 25.2 mmol/L 21.0-31.0 [facility] Work Phone: Creatinine [Mass/Vol] 0.65 mg/dL Low 0.70-1.30 [facility] Work Phone: Eosinophils (Bld) [#/Vol] 0.1 10*3/uL 0.0-0.45 [facility] Work Phone: Eosinophils/100 WBC (Bld) 3.1 % . [facility] Work Phone: Erythrocyte distribution width (RBC) [Entitic vol] 14.4 % 12.0-14.8 [facility] Work Phone: GFR/1.73 sq M.predicted MDRD (S/P/Bld) [Vol rate/Area] mL/min/{1.73_m2} [facility] Work Phone: Glucose [Mass/Vol] 102 mg/dL High 70-100 [facility] Work Phone: Hematocrit (Bld) [Volume fraction] 30.9 % Low 38.8-50.0 [facility] Work Phone: Hemoglobin (Bld) [Mass/Vol] 10.3 g/dL Low 13.0-17.0 [facility] Work Phone: Lymphocytes (Bld) [#/Vol] 1.3 10*3/uL 1.00-4.8 [facility] Work Phone: Lymphocytes/100 WBC (Bld) 28.3 % . [facility] Work Phone: MCH (RBC) [Entitic mass] 96.3 fL 83.5-101 [facility] Work Phone: MCH (RBC) [Entitic mass] 32 pg 27.5-35.2 [facility] Work Phone: MCHC (RBC) [Mass/Vol] 33.3 g/dL 32.5-35.6 [facility] Work Phone: Monocytes (Bld) [#/Vol] 0.5 10*3/uL 0.0-0.8 [facility] Work Phone: Monocytes/100 WBC (Bld) 10.1 % . [facility] Work Phone: Neutrophils (Bld) [#/Vol] 2.7 10*3/uL 1.8-7.7 [facility] Work Phone: Neutrophils/100 WBC (Bld) 58.1 % . [facility] Work Phone: Nucleated RBC (Bld) [#/Vol] 0 /100{WBC} 0-0.5 [facility] Work Phone: Platelet mean volume (Bld) [Entitic vol] 7.6 fL 6.6-10.1 [facility] Work Phone: Platelets (Bld) [#/Vol] 281 10*3/uL 150-450 [facility] Work Phone: Potassium [Moles/Vol] 4.7 mmol/L 3.5-5.1 [facility] Work Phone: RBC (Bld) [#/Vol] 3.21 10*6/uL Low 3.90-5.60 [facility] Work Phone: Sodium [Moles/Vol] 135 mmol/L Low 136-145 [facility] Work Phone: Urea nitrogen [Mass/Vol] 19 mg/dL 01-20 [facility] Work Phone: WBC (Bld) [#/Vol] 4.7 10*3/uL 4.1-10.5 [facility] Work Phone: WBC casts LM.LPF (Urine sed) [#/Area] 4.7 10*3/uL 4.1-10.5 [facility] Work Phone: Serum or plasma anion gap de terminationOrdered By: Adriane Espitia on 02-10-2023 Anion gap [Moles/Vol] 11.5 mmol/L 6.0-15.0 [facility] Sodium [Moles/volume] in Ser um or PlasmaOrdered By: Adriane Espitia on 02-10-2023 Sodium [Moles/Vol] 135 mmol/L 136-145 [facility] Urea nitrogen [Mass/volume] in Serum or PlasmaOrdered By: Adriane Espitia on 02-10-2023 Urea nitrogen [Mass/Vol] 19 mg/dL 01-20 [facility] WBC Auto (Bld) [#/Vol]Ordere d By: Adriane Espitia on 02-10-2023 WBC (Bld) [#/Vol] 4.7 10*3/uL 4.1-10.5 [facility] Relevant diagnostic tests/la boratory data Narrativeon 01-28-2023 Albumin [Mass/Vol] 2.9 g/dL Low 3.5-5.7 [facility] Work Phone: Anion gap [Moles/Vol] 7.1 mmol/L 6.0-15.0 [facility] Work Phone: Basophils (Bld) [#/Vol] 0 10*3/uL 0.0-0.2 [facility] Work Phone: Basophils/100 WBC (Bld) 0.5 % . [facility] Work Phone: C-Peptide 1.4 ng/mL 1.1-4.4 [facility] Work Phone: Calcium [Mass/Vol] 7.8 mg/dL Low 8.6-10.3 [facility] Work Phone: Chloride [Moles/Vol] 109 mmol/L High 98-107 [facility] Work Phone: Cholesterol [Mass/Vol] 72 mg/dL Low 140-200 [facility] Work Phone: Cholesterol in HDL [Mass/Vol] 22 mg/dL Low 23-92 [facility] Work Phone: Cholesterol.total/Cho lesterol in HDL [Mass ratio] 3.3 {ratio} <5.0 [facility] Work Phone: CK [Catalytic activity/Vol] 59 U/L 30-223 [facility] Work Phone: CO2 [Moles/Vol] 25.2 mmol/L 21.0-31.0 [facility] Work Phone: Cobalamin (Vitamin B12) [Mass/Vol] 498 pg/mL 180-914 [facility] Work Phone: Creatinine [Mass/Vol] 0.66 mg/dL Low 0.70-1.30 [facility] Work Phone: Eosinophils (Bld) [#/Vol] 0.1 10*3/uL 0.0-0.45 [facility] Work Phone: Eosinophils/100 WBC (Bld) 3.7 % . [facility] Work Phone: Erythrocyte distribution width (RBC) [Entitic vol] 14.7 % 12.0-14.8 [facility] Work Phone: GFR/1.73 sq M.predicted MDRD (S/P/Bld) [Vol rate/Area] mL/min/{1.73_m2} [facility] Work Phone: Glucose [Mass/Vol] 151 mg/dL [facility] Work Phone: Glucose [Mass/Vol] 111 mg/dL High 70-100 [facility] Work Phone: HbA1c (Bld) [Mass fraction] 6.9 % High 4.3-5.6 [facility] Work Phone: Hematocrit (Bld) [Volume fraction] 27.4 % Low 38.8-50.0 [facility] Work Phone: Hemoglobin (Bld) [Mass/Vol] 9.1 g/dL Low 13.0-17.0 [facility] Work Phone: LDL Cholesterol,Calculate d 40 mg/dL 0-100 [facility] Work Phone: Lymphocytes (Bld) [#/Vol] 1.1 10*3/uL 1.00-4.8 [facility] Work Phone: Lymphocytes/100 WBC (Bld) 27.2 % . [facility] Work Phone: MCH (RBC) [Entitic mass] 95.3 fL 83.5-101 [facility] Work Phone: MCH (RBC) [Entitic mass] 31.7 pg 27.5-35.2 [facility] Work Phone: MCHC (RBC) [Mass/Vol] 33.3 g/dL 32.5-35.6 [facility] Work Phone: Monocytes (Bld) [#/Vol] 0.4 10*3/uL 0.0-0.8 [facility] Work Phone: Monocytes/100 WBC (Bld) 10.1 % . [facility] Work Phone: Neutrophils (Bld) [#/Vol] 2.3 10*3/uL 1.8-7.7 [facility] Work Phone: Neutrophils/100 WBC (Bld) 58.5 % . [facility] Work Phone: Nucleated RBC (Bld) [#/Vol] 0.2 /100{WBC} 0-0.5 [facility] Work Phone: Platelet mean volume (Bld) [Entitic vol] 7 fL 6.6-10.1 [facility] Work Phone: Platelets (Bld) [#/Vol] 302 10*3/uL 150-450 [facility] Work Phone: Potassium [Moles/Vol] 4.3 mmol/L 3.5-5.1 [facility] Work Phone: RBC (Bld) [#/Vol] 2.88 10*6/uL Low 3.90-5.60 [facility] Work Phone: Reticulocyte Number 0.035 10*6/uL 0.024-0 .08 4 [facility] Work Phone: Reticulocyte Percent 1.2 % 0.5-1.5 [facility] Work Phone: Sodium [Moles/Vol] 137 mmol/L 136-145 [facility] Work Phone: Triglyceride w/Reflex 52 mg/dL 0-149 [facility] Work Phone: Urea nitrogen [Mass/Vol] 16 mg/dL 7-25 [facility] Work Phone: Vitamin D 25 Hydroxy Total < 7.0 Low 30-100 [facility] Work Phone: VLDL CHOLESTEROL 10 mg/dL [facility] Work Phone: WBC (Bld) [#/Vol] 4 10*3/uL Low 4.1-10.5 [facility] Work Phone: WBC casts LM.LPF (Urine sed) [#/Area] 4 10*3/uL Low 4.1-10.5 [facility] Work Phone: A1C with Estimated Average G luon 01-27-2023 Glucose [Mass/Vol] 151 mg/dL Normal [facility] Comment on above: Order Comment: Diagn osis: D64.9, I48.0, E11.9, K90.81 Comment: [id number], ALYSSIA MANRIQUEZ, TORY, 01/23/23 Result Comment: PERF ORMED BY: [place] [address] PATHOLOGIST ASSET MANAGER ESTIVEN GENTILE M.D. Performed By: #### C BC, RETIC, B12, CK, ALB, A1C WTH eA, [id number], LIPID, BMP #### [facility] [address] [place] [address] #### CPEP #### [facility] , HbA1c (Bld) [Mass fraction] 6.9 % High 4.3-5.6 [facility] Comment on above: Order Comment: Diagn osis: D64.9, I48.0, E11.9, K90.81 Comment: [id number], DECLAN, RM112, HM, 01/23/23 Result Comment: Incr eased risk for diabetes: 5.7 - 6.4 diabetes: >6.4 glycemic control for adults with diabetes: <7.0 Performed By: #### C BC, RETIC, B12, CK, ALB, A1C WTH eA, [id number], LIPID, BMP #### [facility] [address] [place] [address] #### CPEP #### [facility] , Absolute reticulocyte countO rdered By: Adriane Espitia on 01-27-2023 Reticulocytes (Bld) [#/Vol] 0.035 10*6/uL 0.024-0.08 4 [facility] Albumin Levelon 01-27-2023 Albumin [Mass/Vol] 2.9 g/dL Low 3.5-5.7 [facility] Comment on above: Order Comment: Diagn osis: D64.9, I48.0, E11.9, K90.81 Comment: [id number], ALYSSIA MANRIQUEZ, , 01/23/23 Performed By: #### C BC, RETIC, B12, CK, ALB, A1C WTH eA, [id number], LIPID, BMP #### [address] #### CPEP #### [facility] , Albumin [Mass/volume] in Ser um or Plasma by Bromocresol green (BCG) dye binding methoOrdered By: Adriane Espitia on 01-27-2023 Albumin BCG dye [Mass/Vol] 2.9 g/dL 3.5-5.7 [facility] Basic Metabolic Panelon Anion gap [Moles/Vol] 7.1 mmol/L Normal 6.0-15.0 [facility] Comment on above: Order Comment: Diagn osis: D64.9, I48.0, E11.9, K90.81 Comment: [id number], ALYSSIA MANRIQUEZ, , 01/23/23 Performed By: #### C BC, RETIC, B12, CK, ALB, A1C WTH eA, [id number], LIPID, BMP #### [facility] [address] [place] [address] [place] #### CPEP #### [facility] , Calcium [Mass/Vol] 7.8 mg/dL Low 8.6-10.3 [facility] Comment on above: Order Comment: Diagn osis: D64.9, I48.0, E11.9, K90. Comment: [id number], DECLAN, RM112, HM, 01/23/23 Performed By: #### C BC, RETIC, B12, CK, ALB, A1C WTH eA, [id number], LIPID, BMP #### [facility] [address] [place] [address] #### CPEP #### [facility] , Chloride [Moles/Vol] 109 mmol/L High 98-107 [facility] Comment on above: Order Comment: Diagn osis: D64.9, I48.0, E11., Comment: [id number], DECLAN, RM112, , 01/23/23 Performed By: #### C BC, RETIC, B12, CK, ALB, A1C WTH eA, [id number], LIPID, BMP #### [facility] [address] [place] [address] #### CPEP #### [facility] , CO2 [Moles/Vol] 25.2 mmol/L Normal 21.0-31.0 [facility] Comment on above: Order Comment: Diagn osis: D64.9, I48.0, E11., K. Comment: [id number], DECLAN, RM112, HM, 01/23/23 Performed By: #### C BC, RETIC, B12, CK, ALB, A1C WTH eA, [id number], LIPID, BMP #### [facility] [address] [place] [address] [place] #### CPEP #### [facility] , Creatinine [Mass/Vol] 0.66 mg/dL Low 0.70-1.30 [facility] Comment on above: Order Comment: Diagn osis: D64.9, I48.0, E11.9, K90.81 Comment: [id number], DECLAN RMRobinson, , 01/23/23 Performed By: #### C BC, RETIC, B12, CK, ALB, A1C WTH eA, [id number], LIPID, BMP #### [facility] [address] [place] [address] #### CPEP #### [facility] , GFR/1.73 sq M.predicted MDRD (S/P/Bld) [Vol rate/Area] mL/min/{1.73_m2} [facility] Comment on above: Order Comment: Diagn osis: D64.9, I48.0, E11.9, K90.81 Comment: [id number], DECLAN ALYSSIA, , 01/23/23 Performed By: #### C BC, RETIC, B12, CK, ALB, A1C WTH eA, [id number], LIPID, BMP #### [facility] [address] [place] [address] #### CPEP #### [facility] , Glucose [Mass/Vol] 111 mg/dL High 70-100 [facility] Comment on above: Order Comment: Diagn osis: D64.9, I48.0, E11.9, K90.81 Comment: Teresita, DECLAN BRYONRobinson, , 01/23/23 Result Comment: [place] Glucose Reference Range is dependent on time and content of last meal. Glucose of more than 200 mg/dL in a nonstressed, ambulatory subject supports the diagnosis of Diabetes Mellitus. ADA recommended reference range Performed By: #### C BC, RETIC, B12, CK, ALB, A1C WTH eA, [id number], LIPID, BMP #### [facility] [address] [place] [address] [place] #### CPEP #### [facility] , Potassium [Moles/Vol] 4.3 mmol/L Normal 3.5-5.1 [facility] Comment on above: Order Comment: Diagn osis: D64.9, I48.0, E11.9, K90.81 Comment: [id number], OGONTZ, RM112, , 01/23/23 Performed By: #### C BC, RETIC, B12, CK, ALB, A1C WTH eA, [id number], LIPID, BMP #### [facility] [address] [place] [address] [place] #### CPEP #### [facility] , Sodium [Moles/Vol] 137 mmol/L Normal 136-145 [facility] Comment on above: Order Comment: Diagn osis: D64.9, I48.0, E11.9, K90.81 Comment: [id number], OGONTZ, RM112, , 01/23/23 Performed By: #### C BC, RETIC, B12, CK, ALB, A1C WTH eA, [id number], LIPID, BMP #### [facility] [address] [place] [address] #### CPEP #### [facility] , Urea nitrogen [Mass/Vol] 16 mg/dL Normal 7-25 [facility] Comment on above: Order Comment: Diagn osis: D64.9, I48.0, E11.9, K90.81 Comment: [id number], OGMIKHAILZ, RM112, , 01/23/23 Performed By: #### C BC, RETIC, B12, CK, ALB, A1C WTH eA, [id number], LIPID, BMP #### [facility] [address] [place] [address] #### CPEP #### [facility] , Basophils Auto (Bld) [#/Vol] Ordered By: Adriane Espitia on 01-27-2023 Basophils (Bld) [#/Vol] 0.0 10*3/uL 0.0-0.2 [facility] Basophils/100 WBC Auto (Bld) Ordered By: Adriane Espitia on 01-27-2023 Basophils/100 WBC (Bld) 0.5 % . [facility] C-Peptideon 01-27-2023 C-Peptide 1.4 ng/mL Normal 1.1-4.4 [facility] Comment on above: Order Comment: Diagn osis: E11.9, I10, E46, D64.9 Comment: [id number], DECLAN, RM112, , 02/06/23 Result Comment: C-Pe ptide reference interval is for fasting patients. Performed at: - [facility] [id number] Skidder Driver: Silverio Mario PhD, Phone: [phone] PERFORMED BY: [place] [address] PATHOLOGIST ASSET MANAGER ESTIVEN GENTILE M.D. Performed By: #### A LB, CBC, BMP #### [facility] [address] [place] [address] Calcium [Mass/volume] in Ser um or PlasmaOrdered By: Adriane Espitia on 01-27-2023 Calcium [Mass/Vol] 7.8 mg/dL 8.6-10.3 [facility] Carbon dioxide, total [Moles /volume] in Serum or PlasmaOrdered By: Adriane Espitia on 01-27-2023 CO2 [Moles/Vol] 25.2 mmol/L 21.0-31.0 [facility] Chloride [Moles/volume] in S brandi or PlasmaOrdered By: Adriane Espitia on 01-27-2023 Chloride [Moles/Vol] 109 mmol/L 98-107 [facility] Cholesterol [Mass/volume] in Serum or PlasmaOrdered By: Adriane Espitia on 01-27-2023 Cholesterol [Mass/Vol] 72 mg/dL 140-200 [facility] Comment on above: Chol less than 200 m g/dl low riskChol 201-239 mg/dl borderline riskChol 240 mg/dl and greater high risk Cholesterol in LDL Calc [Mas s/Vol]Ordered By: Adriane Espitia on 01-27-2023 Cholesterol in LDL [Mass/Vol] 40 mg/dL 0-100 [facility] Comment on above: LDL ATP III CLASSIFI CATIONLDL less than 100 mg/dL OptimalLDL 100-129 mg/dL Near or above optimalLDL 130-159 mg/dL Borderline highLDL 160-189 mg/dL HighLDL greater than 189 mg/dL Very high Cholesterol in VLDL Calc [Ma ss/Vol]Ordered By: Adriane Espitia on 01-27-2023 Cholesterol in VLDL [Mass/Vol] 10 mg/dL [facility] Complete Blood Count Auto Di ffon 01-27-2023 Basophils (Bld) [#/Vol] 0.0 10*3/uL Normal 0.0-0.2 [facility] Comment on above: Order Comment: Diagn osis: D64.9, I48.0, E11.9, K90.81 Comment: [id number], OGONTZ, RM112, , 01/23/23 Performed By: #### C BC, RETIC, B12, CK, ALB, A1C WTH eA, [id number], LIPID, BMP #### [facility] [address] [place] [address] #### CPEP #### [facility] , Basophils/100 WBC (Bld) 0.5 % Normal . [facility] Comment on above: Order Comment: Diagn osis: D64.9, I48.0, E11.9, K90.81 Comment: [id number], OGONTZ, RM112, , 01/23/23 Performed By: #### C BC, RETIC, B12, CK, ALB, A1C WTH eA, [id number], LIPID, BMP #### [facility] [address] [place] [address] #### CPEP #### [facility] , Eosinophils (Bld) [#/Vol] 0.1 10*3/uL Normal 0.0-0.45 [facility] Comment on above: Order Comment: Diagn osis: D64.9, I48.0, E11.9, K90.81 Comment: [id number], OGONTZ, RM112, , 01/23/23 Performed By: #### C BC, RETIC, B12, CK, ALB, A1C WTH eA, [id number], LIPID, BMP #### [facility] [address] [place] [address] [place] #### CPEP #### [facility] , Eosinophils/100 WBC (Bld) 3.7 % Normal . [facility] Comment on above: Order Comment: Diagn osis: D64.9, I48.0, E11.9, K90.81 Comment: [id number], OGMIKHAILZ, RM112, , 01/23/23 Performed By: #### C BC, RETIC, B12, CK, ALB, A1C WTH eA, [id number], LIPID, BMP #### [address] #### CPEP #### [facility] , Erythrocyte distribution width (RBC) [Ratio] 14.7 % Normal 12.0-14.8 [facility] Comment on above: Order Comment: Diagn osis: D64.9, I48.0, E11.9, K90.81 Comment: [id number], OGMIKHAILZ, RM112, , 01/23/23 Performed By: #### C BC, RETIC, B12, CK, ALB, A1C WTH eA, [id number], LIPID, BMP #### [address] #### CPEP #### [facility] , Hematocrit (Bld) [Volume fraction] 27.4 % Low 38.8-50.0 [facility] Comment on above: Order Comment: Diagn osis: D64.9, I48.0, E11.9, K90.81 Comment: [id number], OGMIKHAILZ, RM112, , 01/23/23 Performed By: #### C BC, RETIC, B12, CK, ALB, A1C WTH eA, [id number], LIPID, BMP #### [address] #### CPEP #### [facility] , Hemoglobin (Bld) [Mass/Vol] 9.1 g/dL Low 13.0-17.0 [facility] Comment on above: Order Comment: Diagn osis: D64.9, I48.0, E11.9, K90.81 Comment: [id number], OGONTZ, RM112, , 01/23/23 Performed By: #### C BC, RETIC, B12, CK, ALB, A1C WTH eA, [id number], LIPID, BMP #### [address] #### CPEP #### [facility] , Lymphocytes (Bld) [#/Vol] 1.1 10*3/uL Normal 1.00-4.8 [facility] Comment on above: Order Comment: Diagn osis: D64.9, I48.0, E11.9, K90.81 Comment: [id number], OGONTZ, RM112, HM, 01/23/23 Performed By: #### C BC, RETIC, B12, CK, ALB, A1C WTH eA, [id number], LIPID, BMP #### [address] #### CPEP #### [facility] , Lymphocytes/100 WBC (Bld) 27.2 % Normal . [facility] Comment on above: Order Comment: Diagn osis: D64.9, I48.0, E11.9, K90.81 Comment: [id number], OGONTZ, RM112, HM, 01/23/23 Performed By: #### C BC, RETIC, B12, CK, ALB, A1C WTH eA, [id number], LIPID, BMP #### [address] #### CPEP #### [facility] , MCH (RBC) [Entitic mass] 31.7 pg Normal 27.5-35.2 [facility] Comment on above: Order Comment: Diagn osis: D64.9, I48.0, E11.9, K90.81 Comment: [id number], OGONTZ, RM112, HM, 01/23/23 Performed By: #### C BC, RETIC, B12, CK, ALB, A1C WTH eA, [id number], LIPID, BMP #### [address] #### CPEP #### [facility] , MCV (RBC) [Entitic vol] 95.3 fL Normal 83.5-101 [facility] Comment on above: Order Comment: Diagn osis: D64.9, I48.0, E11.9, K90.81 Comment: [id number], OGMIKHAILZ, RM112, , 01/23/23 Performed By: #### C BC, RETIC, B12, CK, ALB, A1C WTH eA, [id number], LIPID, BMP #### [facility] [address] [place] [address] #### CPEP #### [facility] , Mean Corpuscular HGB Conc 33.3 g/dL Normal 32.5-35.6 [facility] Comment on above: Order Comment: Diagn osis: D64.9, I48.0, E11., K. 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 [facility] Comment on above: Order Comment: Diagn osis: D64.9, I48.0, E11.9, K90.81 Comment: [id number], DECLAN, RM112, , 01/23/23 Performed By: #### C BC, RETIC, B12, CK, ALB, A1C WTH eA, [id number], LIPID, BMP #### [facility] [address] [place] [address] #### CPEP #### [facility] , NRBC% 0.2 /100{WBC} Normal 0-0.5 [facility] Comment on above: Order Comment: Diagn osis: D64.9, I48.0, E11.9, K90.81 Comment: [id number], BLADIMIRZ, RM112, , 01/23/23 Performed By: #### C BC, RETIC, B12, CK, ALB, A1C WTH eA, [id number], LIPID, BMP #### [address] #### CPEP #### [facility] , Platelet mean volume (Bld) [Entitic vol] 7.0 fL Normal 6.6-10.1 [facility] Comment on above: Order Comment: Diagn osis: D64.9, I48.0, E11.9, K90.81 Comment: [id number], OGONTZ, RM112, HM, 01/23/23 Performed By: #### C BC, RETIC, B12, CK, ALB, A1C WTH eA, [id number], LIPID, BMP #### [facility] [address] [place] [address] #### CPEP #### [facility] , Platelets (Bld) [#/Vol] 302 10*3/uL Normal 150-450 [facility] Comment on above: Order Comment: Diagn osis: D64.9, I48.0, E11.9, K90.81 Comment: [id number], OGONTZ, RM112, HM, 01/23/23 Performed By: #### C BC, RETIC, B12, CK, ALB, A1C WTH eA, [id number], LIPID, BMP #### [facility] [address] [place] [address] #### CPEP #### [facility] , RBC (Bld) [#/Vol] 2.88 10*6/uL Low 3.90-5.60 [facility] Comment on above: Order Comment: Diagn osis: D64.9, I48.0, E11.9, K90.81 Comment: [id number], OGONTZ, RM112, HM, 01/23/23 Performed By: #### C BC, RETIC, B12, CK, ALB, A1C WTH eA, [id number], LIPID, BMP #### [facility] [address] [place] [address] [place] #### CPEP #### [facility] , WBC (Bld) [#/Vol] 4.0 10*3/uL Low 4.1-10.5 [facility] Comment on above: Order Comment: Diagn osis: D64.9, I48.0, E11.9, K90.81 Comment: [id number], OGMIKHAILZ, RM112, HM, 01/23/23 Performed By: #### C BC, RETIC, B12, CK, ALB, A1C WTH eA, [id number], LIPID, BMP #### [facility] [address] [place] [address] #### CPEP #### [facility] , Creatine Kinaseon 01-27-2023 CK [Catalytic activity/Vol] 59 U/L Normal [facility] Comment on above: Order Comment: Diagn osis: D64.9, I48.0, E11.9, K90.81 Comment: [id number], OGONTZ, RM112, HM, 01/23/23 Result Comment: PERF ORMED BY: [place] [address] PATHOLOGIST ASSET MANAGER ESTIVEN GENTILE M.D. Performed By: #### C BC, RETIC, B12, CK, ALB, A1C WTH eA, [id number], LIPID, BMP #### [address] #### CPEP #### [facility] , Creatine kinase [Enzymatic a ctivity/volume] in Serum or PlasmaOrdered By: Adriane Espitia on 01-27-2023 CK [Catalytic activity/Vol] 59 U/L [facility] Creatinine [Mass/volume] in Serum or PlasmaOrdered By: Adriane Espitia on 01-27-2023 Creatinine [Mass/Vol] 0.66 mg/dL 0.70-1.30 [facility] Eosinophils Auto (Bld) [#/Vo l]Ordered By: Adriane Espitia on 01-27-2023 Eosinophils (Bld) [#/Vol] 0.1 10*3/uL 0.0-0.45 [facility] Eosinophils/100 WBC Auto (Bl d)Ordered By: Adriane Espitia on 01-27-2023 Eosinophils/100 WBC (Bld) 3.7 % . [facility] Erythrocyte distribution wid th Auto (RBC) [Ratio]Ordered By: Adriane Espitia on 01-27-2023 Erythrocyte distribution width (RBC) [Ratio] 14.7 % 12.0-14.8 [facility] Glucose [Mass/volume] in Ser um or PlasmaOrdered By: Adriane Espitia on 01-27-2023 Glucose [Mass/Vol] 111 mg/dL 70-100 [facility] Comment on above: ADA recommended refe rence rangeRandom Glucose Reference Range is dependent on time and content of last meal. Glucose of more than 200 mg/dL in a nonstressed, ambulatory subject supports the diagnosis of Diabetes Mellitus. Glucose mean value [Mass/vol ume] in Blood Estimated from glycated hemoglobinOrdered By: Adriane Espitia on 01-27-2023 Average glucose Estimated from glycated hemoglobin (Bld) [Mass/Vol] 151 mg/dL [facility] Hematocrit Auto (Bld) [Volum e fraction]Ordered By: Adriane Espitia on 01-27-2023 Hematocrit (Bld) [Volume fraction] 27.4 % 38.8-50.0 [facility] Hemoglobin A1c percentageOrd ered By: Adriane Espitia on 01-27-2023 HbA1c (Bld) [Mass fraction] 6.9 % 4.3-5.6 [facility] Comment on above: Increased risk for d iabetes: 5.7 - 6.4diabetes: >6.4glycemic control for adults with diabetes: <7.0 Hemoglobin [Mass/volume] in BloodOrdered By: Adriane Espitia on 01-27-2023 Hemoglobin (Bld) [Mass/Vol] 9.1 g/dL 13.0-17.0 [facility] Leukocytes [#/volume] correc missael for nucleated erythrocytes in Blood by Automated counOrdered By: Adriane Espitia on 01-27-2023 WBC corrected for nucl RBC Auto (Bld) [#/Vol] 4.0 10*3/uL 4.1-10.5 [facility] Lipid Panelon 01-27-2023 Cholesterol [Mass/Vol] 72 mg/dL Low 140-200 [facility] Comment on above: Order Comment: Diagn osis: D64.9, I48.0, E11.9, K90.81 Comment: Teresita, OGNICOLASBRYONRobinson, , 01/23/23 Result Comment: Chol less than 200 mg/dl low risk Chol 201-239 mg/dl borderline risk Chol 240 mg/dl and greater high risk Performed By: #### C BC, RETIC, B12, CK, ALB, A1C WTH eA, [id number], LIPID, BMP #### [facility] [address] [place] [address] #### CPEP #### [facility] , Cholesterol in HDL [Mass/Vol] 22 mg/dL Low 23-92 [facility] Comment on above: Order Comment: Diagn osis: D64.9, I48.0, E11.9, K90.81 Comment: [id number], DECLAN Robinson, , 01/23/23 Result Comment: HDL CHOL ATP-III CLASSIFICATION Cardiovascular Risk HDL > or equal to 60 mg/dL LOW HDL < 40 mg/dL HIGH Performed By: #### C BC, RETIC, B12, CK, ALB, A1C WTH eA, [id number], LIPID, BMP #### [address] #### CPEP #### [facility] , Cholesterol.total/Cho lesterol in HDL [Mass ratio] 3.3 {ratio} Normal <5.0 [facility] Comment on above: Order Comment: Diagn osis: D64.9, I48.0, E11.9, K90.81 Comment: Teresita, ALYSSIA MANRIQUEZ, , 01/23/23 Performed By: #### C BC, RETIC, B12, CK, ALB, A1C WTH eA, [id number], LIPID, BMP #### [facility] [address] [place] [address] [place] #### CPEP #### [facility] , LDL Cholesterol,Calculate d 40 mg/dL Normal 0-100 [facility] Comment on above: Order Comment: Diagn osis: D64.9, I48.0, E11.9, K90.81 Comment: [id number], DECLAN RMRobinson, , 01/23/23 Result Comment: LDL ATP III CLASSIFICATION LDL less than 100 mg/dL Optimal LDL 100-129 mg/dL Near or above optimal LDL 130-159 mg/dL Borderline high LDL 160-189 mg/dL High LDL greater than 189 mg/dL Very high Performed By: #### C BC, RETIC, B12, CK, ALB, A1C WTH eA, [id number], LIPID, BMP #### [address] #### CPEP #### [facility] , Triglyceride w/Reflex 52 mg/dL Normal 0-149 [facility] Comment on above: Order Comment: Diagn osis: D64.9, I48.0, E11.9, K90.81 Comment: [id number], [facility] , 01/23/23 Result Comment: TRIG ATP III CLASSIFICATION TRIG less than 150 mg/dL Normal TRIG 150-199 mg/dL Borderline high TRIG 200-500 mg/dL High TRIG greater than 500 mg/dL Very high Standard traceable to the Center for Disease Conrtrol and Prevention (CDC) test method. Performed By: #### C BC, RETIC, B12, CK, ALB, A1C WTH eA, [id number], LIPID, BMP #### [address] #### CPEP #### [facility] , VLDL CHOLESTEROL 10 mg/dL Normal [facility] Comment on above: Order Comment: Diagn osis: D64.9, I48.0, E11.9, K90.81 Comment: [id number], ALYSSIA MANRIQUEZ, , 01/23/23 Performed By: #### C BC, RETIC, B12, CK, ALB, A1C WTH eA, [id number], LIPID, BMP #### [address] #### CPEP #### [facility] , Lymphocytes Auto (Bld) [#/Vo l]Ordered By: Adriane Espitia on 01-27-2023 Lymphocytes (Bld) [#/Vol] 1.1 10*3/uL 1.00-4.8 [facility] Lymphocytes/100 WBC Auto (Bl d)Ordered By: Adriane Espitia on 01-27-2023 Lymphocytes/100 WBC (Bld) 27.2 % . [facility] MCH Auto (RBC) [Entitic mass ]Ordered By: Adriane Espitia on 01-27-2023 MCH (RBC) [Entitic mass] 31.7 pg 27.5-35.2 [facility] MCHC Auto (RBC) [Mass/Vol]Or dered By: Adriane Espitia on 01-27-2023 MCHC (RBC) [Mass/Vol] 33.3 g/dL 32.5-35.6 [facility] MCV Auto (RBC) [Entitic vol] Ordered By: Adriane Espitia on 01-27-2023 MCV (RBC) [Entitic vol] 95.3 fL 83.5-101 [facility] Monocytes Auto (Bld) [#/Vol] Ordered By: Adriane Espitia on 01-27-2023 Monocytes (Bld) [#/Vol] 0.4 10*3/uL 0.0-0.8 [facility] Monocytes/100 WBC Auto (Bld) Ordered By: Adriane Espitia on 01-27-2023 Monocytes/100 WBC (Bld) 10.1 % . [facility] Neutrophils Auto (Bld) [#/Vo l]Ordered By: Adriane Espitia on 01-27-2023 Neutrophils (Bld) [#/Vol] 2.3 10*3/uL 1.8-7.7 [facility] Neutrophils/100 WBC Auto (Bl d)Ordered By: Adriane Espitia on 01-27-2023 Neutrophils/100 WBC (Bld) 58.5 % . [facility] No Panel InformationOrdered By: Adriane Espitia on 01-27-2023 C-Peptide 1.4 ng/mL 1.1-4.4 [facility] Comment on above: C-Peptide reference interval is for fasting patients.Performed at: [facility] [id number] Director: Silverio Mario PhD, Phone: [phone] Estimated GFR (CKD-EPI) > 60.0 mL/Min [facility] Creatinine Clearance (Chem N/A [facility] Nucleated erythrocytes [Pres ence] in Blood by Automated countOrdered By: Adriane Espitia on 01-27-2023 Nucleated RBC Auto Ql (Bld) 0.2 /100{WBC} 0-0.5 [facility] Platelet mean volume Auto (B ld) [Entitic vol]Ordered By: Adriane Espitia on 01-27-2023 Platelet mean volume (Bld) [Entitic vol] 7.0 fL 6.6-10.1 [facility] Platelets Auto (Bld) [#/Vol] Ordered By: Adriane Espitia on 01-27-2023 Platelets (Bld) [#/Vol] 302 10*3/uL 150-450 [facility] Potassium [Moles/volume] in Serum or PlasmaOrdered By: Adriane Espitia on 01-27-2023 Potassium [Moles/Vol] 4.3 mmol/L 3.5-5.1 [facility] RBC Auto (Bld) [#/Vol]Ordere d By: Adriane Espitia on 01-27-2023 RBC (Bld) [#/Vol] 2.88 10*6/uL 3.90-5.60 [facility] Reticulocyte Counton 023 Reticulocyte Number 0.035 10*6/uL Normal 0.024-0 .08 4 [facility] Comment on above: Order Comment: Diagn osis: D64.9, I48.0, E11.9, K90.81 Comment: [id number], DECLAN, [id number], , 01/23/23 Result Comment: PERF ORMED BY: [place] [address] PATHOLOGIST ASSET MANAGER ESTIVEN GENTILE M.D. Performed By: #### C BC, RETIC, B12, CK, ALB, A1C WTH eA, [id number], LIPID, BMP #### [facility] [address] [place] [address] #### CPEP #### [facility] , Reticulocyte Percent 1.2 % Normal 0.5-1.5 [facility] Comment on above: Order Comment: Diagn osis: D64.9, I48.0, E11.9, K90.81 Comment: [id number], DECLAN, RM112, , 01/23/23 Performed By: #### C BC, RETIC, B12, CK, ALB, A1C WTH eA, [id number], LIPID, BMP #### [facility] [address] #### CPEP #### [facility] , Reticulocytes/100 RBC Auto ( Bld)Ordered By: Adriane Espitia on 01-27-2023 Reticulocytes/100 RBC (Bld) 1.2 % 0.5-1.5 [facility] Serum or plasma anion gap de terminationOrdered By: Adriane Espitia on 01-27-2023 Anion gap [Moles/Vol] 7.1 mmol/L 6.0-15.0 [facility] Serum or plasma high density lipoprotein (HDL) cholesterol measurementOrdered By: Adriane Espitia on 01-27-2023 Cholesterol in HDL [Mass/Vol] 22 mg/dL 23-92 [facility] Comment on above: HDL CHOL ATP-III CLA SSIFICATION Cardiovascular RiskHDL > or equal to 60 mg/dL LOWHDL < 40 mg/dL HIGH Serum or plasma total choles terol/high density lipoprotein (HDL) cholesterol mass ratOrdered By: Adriane Espitia on 01-27-2023 Cholesterol.total/Cho lesterol in HDL [Mass ratio] 3.3 {ratio} <5.0 [facility] Sodium [Moles/volume] in Ser um or PlasmaOrdered By: Adriane Espitia on 01-27-2023 Sodium [Moles/Vol] 137 mmol/L 136-145 [facility] Triglyceride [Mass/volume] i n Serum or PlasmaOrdered By: Adriane Espitia on 01-27-2023 Triglyceride [Mass/Vol] 52 mg/dL 0-149 [facility] Comment on above: TRIG ATP III CLASSIF ICATIONTRIG less than 150 mg/dL NormalTRIG 150-199 mg/dL Borderline highTRIG 200-500 mg/dL High TRIG greater than 500 mg/dL Very highStandard traceable to the Center for Disease Conrtrol and Prevention (CDC) test method. Urea nitrogen [Mass/volume] in Serum or PlasmaOrdered By: Adriane Espitia on 01-27-2023 Urea nitrogen [Mass/Vol] 16 mg/dL 7-25 [facility] Vitamin B12on 01-27-2023 Cobalamin (Vitamin B12) [Mass/Vol] 498 pg/mL Normal 180-914 [facility] Comment on above: Order Comment: Diagn osis: E11.9, I10, E46, D64.9 Comment: [id number], DECLAN, RMR[place]inson, , 02/06/23 Performed By: #### A LB, CBC, BMP #### [facility] [address] Vitamin B12 ser/plasOrdered By: Adriane Espitia on 01-27-2023 Cobalamin (Vitamin B12) [Mass/Vol] 498 pg/mL 180-914 [facility] Vitamin D 25 Hydroxy Totalon 01-27-2023 Vitamin D 25 Hydroxy Total < 7.0 Low 30-100 [facility] Comment on above: Order Comment: Diagn osis: E11.9, I10, E46, D64.9 Comment: [id number], DECLAN, [facility], , 02/06/23 Result Comment: TAYLER MIN D STATUS 25(OH)VITAMIN D RANGE (ng/mL) Deficient <20 Insufficient 20 to <30 Sufficient 30 to 100 Reference: Janny MF,Carmen NC, Brant CAMPUZANO, et al. Evaluation,treatment, and prevention of vitamin D deficiency; an Endocrine Society clinical practice guideline. JCEM. 2010; 96(7):1911-30. PERFORMED BY: [place] [address] PATHOLOGIST ASSET MANAGER ESTIVEN GENTILE M.D. Performed By: #### A LB, CBC, BMP #### [facility] [address] [place] [address] Vitamin D+Metabolites [Mass/ volume] in Serum or PlasmaOrdered By: Adriane Espitia on 01-27-2023 Vitamin D+Metabolites [Mass/Vol] < 7.0 ng/mL 30-100 [facility] Comment on above: VITAMIN D STATUS 25( OH)VITAMIN D RANGE (ng/mL) Deficient <20 Insufficient 20 to <30Sufficient 30 to 100Reference: Janny MF,Carmen LACEY, Brant CAMPUZANO, et al. Evaluation,treatment, and prevention of vitamin D deficiency; an Endocrine Society clinical practice guideline. JCEM. 2010; 96(7):1911-30. WBC Auto (Bld) [#/Vol]Ordere d By: Adriane Espiita on 01-27-2023 WBC (Bld) [#/Vol] 4.0 10*3/uL 4.1-10.5 [facility] Office Visit (Cardiology)on 09-16-2022 Follow-up visit Diagnoses/Problems [...] Follow up in 1 year Chief Complaint ROCIOMarisa JACKSON is being seen for follow-up of a hospitalization for. 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 Vitamin D3 1.25 MG (48016 UT) Oral CapsuleTAKE 1 CAPSULE Daily Xanax [...] Recorded: 16Sep2022 11:33AM Heart Rate78, L Radial [id number], LUE, Sitting Ilwqijknk74, LUE, Sitting Height5 ft 8 in Houziq318 lb BMI Repncjodkw20.05 kg/m2 BSA Calculated1.78 Tobacco Useb) No PHQ-2 [...] auscultation. Cardiovascul (more content not included)... Normal [facility] BNPon 07-12-2022 Natriuretic peptide B (Bld) [Mass/Vol] 3610.0 pg/mL Critically high <=900.0 [facility] Comment on above: Performed By: #### P T, PTT #### [facility] [address] [address] [address] Mel Barrientos CBC AUTO DIFFon 07-12-2022 BASO # 0.0 103/ul Normal 0.0-0.1 [facility] Comment on above: Performed By: #### C BC #### [facility] [address] [address] [address] Mel Barrientos Basophils/100 WBC (Bld) 0.4 % Normal 0.2-2.0 [facility] Comment on above: Performed By: #### C BC #### [facility] [address] [place] [address] Dr. Mel Barrientos EO # 0.1 103/ul Normal 0.0-0.7 [facility] Comment on above: Performed By: #### C BC #### [facility] [address] [place] [address] Dr. Mel Barrientos Eosinophils/100 WBC (Bld) 3.5 % Normal 0.9-7.0 [facility] Comment on above: Performed By: #### C BC #### [facility] [address] [place] [address] Dr. Mel Barrientos Erythrocyte distribution width (RBC) [Ratio] 12.9 % Normal 11.0-15.0 [facility] Comment on above: Performed By: #### C BC #### [facility] [address] [place] [address] Dr. Mel Barrientos Hematocrit (Bld) [Volume fraction] 25.4 % Critically low 42.0-54.0 [facility] Comment on above: Performed By: #### C BC #### [facility] [address] [place] [address] Dr. Mel Barrientos Hemoglobin (Bld) [Mass/Vol] 8.3 g/dL Critically low 14.0-18.0 [facility] Comment on above: Performed By: #### C BC #### [facility] [address] [place] [address] Dr. Mel Barrientos IG # 0.00 10e3/ul Normal 0.00-0.03 [facility] Comment on above: Performed By: #### C BC #### [facility] [address] [place] [address] Dr. Mel Barrientos IG % 0.0 % Normal 0.0-0.5 [facility] Comment on above: Performed By: #### C BC #### [facility] [address] [place] [address] Dr. Mel Barrientos LYMPH # 1.0 103/ul Critically low 1.2-3.8 [facility] Comment on above: Performed By: #### C BC #### [facility] [address] [place] [address] Dr. Mel Barrientos Lymphocytes/100 WBC (Bld) 35.0 % Normal 20.5-60.0 [facility] Comment on above: Performed By: #### C BC #### [facility] [address] [place] [address] Dr. Mel Barrientos MANUAL DIFF REQ NO Normal [facility] Comment on above: Performed By: #### C BC #### [facility] [address] [place] [address] Dr. Mel Barrientos MCH (RBC) [Entitic mass] 33.5 pg Normal 25.9-34.0 [facility] Comment on above: Performed By: #### C BC #### [facility] [address] [place] [address] Dr. Mel Barrientos MCHC (RBC) [Mass/Vol] 32.7 g/dL Normal 29.9-35.2 [facility] Comment on above: Performed By: #### C BC #### [facility] [address] [place] [address] Dr. Mel Barrientos MCV (RBC) [Entitic vol] 102.4 fL Critically high 80.0-94.0 [facility] Comment on above: Performed By: #### C BC #### [facility] [address] [place] [address] Dr. Mel Barrientos MONO # 0.5 103/ul Normal 0.3-0.8 [facility] Comment on above: Performed By: #### C BC #### [facility] [address] [place] [address] Dr. Mel Barrientos Monocytes/100 WBC (Bld) 18.7 % Critically high 1.7-12.0 [facility] Comment on above: Performed By: #### C BC #### [facility] [address] [place] [address] Dr. Mel Barrientos NEUT # 1.2 103/ul Critically low 1.4-6.5 [facility] Comment on above: Performed By: #### C BC #### [facility] [address] [place] [address] Dr. Mel Barrientos Neutrophils/100 WBC (Bld) 42.4 % Critically low 43.0-75.0 [facility] Comment on above: Performed By: #### C BC #### [facility] [address] [place] [address] Dr. Mel Barrientos Platelet mean volume (Bld) [Entitic vol] 8.6 fL Critically low 9.5-13.5 [facility] Comment on above: Performed By: #### C BC #### [facility] [address] [place] [address] Dr. Mel Barrientos PLT 208 103/ul Normal 150-450 [facility] Comment on above: Performed By: #### C BC #### [facility] [address] [place] [address] Dr. Mel Barrientos RBC 2.48 106/ul Critically low 4.70-6.10 [facility] Comment on above: Performed By: #### C BC #### [facility] [address] [place] [address] Dr. Mel Barrientos WBC 2.8 103/ul Critically low 4.0-11.0 [facility] Comment on above: Performed By: #### C BC #### [facility] [address] [place] [address] Dr. Mel Barrientos LIPID PROFILEon 07-12-2022 CHOL-HDL RATIO NORM SEE BELOW Normal [facility] Comment on above: Result Comment: 3.3 - 4.4 LOW RISK 4.4 - 7.1 AVERAGE RISK 7.1 - 11.0 MODERATE RISK >11.0 HIGH RISK Performed By: #### P T, PTT #### [facility] [address] [place] [address] Dr. Mel Barrientos Cholesterol [Mass/Vol] 74 mg/dL Normal <=200 [facility] Comment on above: Performed By: #### P T, PTT #### [facility] [address] [place] [address] Dr. Mel Barrientos Cholesterol in HDL [Mass/Vol] 24 mg/dL Critically low 40-60 [facility] Comment on above: Performed By: #### P T, PTT #### [facility] [address] [address] [address] Mel Barrientos Cholesterol in LDL [Mass/Vol] 36.8 mg/dL Normal [facility] Comment on above: Performed By: #### P T, PTT #### [facility] [address] [place] [address] Dr. Mel Barrientos Cholesterol.total/Cho lesterol in HDL [Mass ratio] 3.1 {ratio} Normal [facility] Comment on above: Performed By: #### P T, PTT #### [facility] [address] [address] [address] Mel Barrientos HDL NORMAL > or = 60 mg/dl - LO W CARDIOVASCULAR RISK <40 mg/dl - HIGH CARDIOVASCULAR RISK Normal [facility] Comment on above: Performed By: #### P T, PTT #### [facility] [address] [place] [address] Dr. Mel Barrientos LDL CALC NORMAL SEE BELOW Normal [facility] Comment on above: Result Comment: <100 mg/dl OPTIMAL 100 - 129 mg/dl NEAR OR ABOVE OPTIMAL 130 - 159 mg/dl BORDERLINE HIGH 160 - 189 mg/dl HIGH >190 mg/dl VERY HIGH Performed By: #### P T, PTT #### [facility] [address] [place] [address] Dr. Mel Barrientos Triglyceride [Mass/Vol] 66 mg/dL Normal <=150 [facility] Comment on above: Performed By: #### P T, PTT #### [facility] [address] [place] [address] Dr. Mel Barrientos VLDL CALC 13.2 mg/dL Normal [facility] Comment on above: Performed By: #### P T, PTT #### [facility] [address] [place] [address] Dr. Mel Barrientos PROF 14(COMP METB)on 023 Albumin [Mass/Vol] 2.7 g/dL Critically low 3.4-5.0 Th e [facility] Comment on above: Performed By: #### P T, PTT #### [facility] [address] [place] [address] Dr. Mel Barrientos Albumin/Globulin [Mass ratio] 0.7 {ratio} Normal [facility] Comment on above: Performed By: #### P T, PTT #### [facility] [address] [place] [address] Dr. Mel Barrientos ALP [Catalytic activity/Vol] 128 U/L Critically high 46-116 [facility] Comment on above: Performed By: #### P T, PTT #### [facility] [address] [place] [address] Dr. Mel Barrientos ALT [Catalytic activity/Vol] 37 U/L Normal 16-63 [facility] Comment on above: Performed By: #### P T, PTT #### [facility] [address] [place] [address] Dr. Mel Barrientos Anion gap [Moles/Vol] 11.6 mmol/L Normal Th [facility] Comment on above: Performed By: #### P T, PTT #### [facility] [address] [place] [address] Dr. Mel Barrientos AST [Catalytic activity/Vol] 24 U/L Normal 15-37 [facility] Comment on above: Performed By: #### P T, PTT #### [facility] [address] [place] [address] Dr. eMl Barrientos Bilirubin [Mass/Vol] 0.3 mg/dL Normal 0.2-1.0 [facility] Comment on above: Performed By: #### P T, PTT #### [facility] [address] [place] [address] Dr. Mel Barrientos Calcium [Mass/Vol] 8.4 mg/dL Critically low 8.5-10.1 [facility] Comment on above: Performed By: #### P T, PTT #### [facility] [address] [place] [address] Dr. Mel Barrientos Chloride [Moles/Vol] 100 mmol/L Normal 98-107 [facility] Comment on above: Performed By: #### P T, PTT #### [facility] [address] [place] [address] Dr. Mel Barrientos CO2 [Moles/Vol] 24.5 mmol/L Normal 21.0-32.0 [facility] Comment on above: Performed By: #### P T, PTT #### [facility] [address] [place] [address] Dr. Mel Barrientos Creatinine [Mass/Vol] 0.80 mg/dL Normal 0.70-1.30 [facility] Comment on above: Performed By: #### P T, PTT #### [facility] [address] [place] [address] Dr. Mel Barrientos EGFR-AF BRITISH >60 Normal >=60 [facility] Comment on above: Performed By: #### P T, PTT #### [facility] [address] [place] [address] Dr. Mel Barrientos EGFR-NON AF BRITISH >60 Normal >=60 [facility] Comment on above: Performed By: #### P T, PTT #### [facility] [address] [place] [address] Dr. Mel Barrientos Globulin (S) [Mass/Vol] 3.8 g/dL Normal [facility] Comment on above: Performed By: #### P T, PTT #### [facility] [address] [place] [address] Dr. Mel Barrientos Glucose [Mass/Vol] 134 mg/dL Critically high 74-106 T [facility] Comment on above: Performed By: #### P T, PTT #### [facility] [address] [place] [address] Dr. Mel Barrientos Potassium [Moles/Vol] 4.1 mmol/L Normal 3.5-5.1 [facility] Comment on above: Performed By: #### P T, PTT #### [facility] [address] [place] [address] Dr. Mel Barrientos Protein [Mass/Vol] 6.5 g/dL Normal 6.4-8.2 [facility] Comment on above: Performed By: #### P T, PTT #### [facility] [address] [place] [address] Dr. Mel Barrientos Sodium [Moles/Vol] 132 mmol/L Critically low 136-145 Th e [facility] Comment on above: Performed By: #### P T, PTT #### [facility] [address] [place] [address] Dr. Mel Barrientos Urea nitrogen [Mass/Vol] 19.0 mg/dL Critically high 7.0-18.0 [facility] Comment on above: Performed By: #### P T, PTT #### [facility] [address] [place] [address] Dr. Mel Barrientos Urea nitrogen/Creatinine [Mass ratio] 23.8 mg/mg Normal [facility] Comment on above: Performed By: #### P T, PTT #### [facility] [address] [place] [address] Dr. Mel Barrientos T4on 07-12-2022 T4 [Mass/Vol] 5.90 ug/dL Normal 4.50-12.10 [facility] Comment on above: Performed By: #### P T, PTT #### [facility] [address] [place] [address] Dr. Mel Barrientos TSHon 07-12-2022 TSH 3.686 uIU/mL Normal 0.358-3.74 0 [facility] Comment on above: Performed By: #### P T, PTT #### [facility] [address] [place] [address] Dr. Mel Barrientos BNPon 07-11-2022 Natriuretic peptide B (Bld) [Mass/Vol] 1694.0 pg/mL Critically high <=900.0 [facility] Comment on above: Performed By: #### L IPID, CMP #### [facility] [address] [place] [address] Dr. Mel Barrientos CARDIAC SUSHILA 3-6on 3 CK [Catalytic activity/Vol] 139 U/L Normal 39-308 [facility] Comment on above: Performed By: #### C MREP #### [facility] [address] [place] [address] Dr. Mel Barrientos CK.MB [Mass/Vol] 1.99 ng/mL Normal <=3.60 [facility] Comment on above: Performed By: #### C MREP #### [facility] [address] [place] [address] Dr. Mel Barrientos HSTROP 6.9 pg/mL Normal 4.0-76.1 [facility] Comment on above: Result Comment: CUT- OFF POINTS HAVE BEEN ESTABLISHED BASED ON THE FOURTH UNIVERSAL DEFINITIONS OF MYOCARDIAL INFARCTION. THE UPPER REFERENCE LIMIT (URL) OF TROPONIN, DEFINED THE 99TH PERCENTILE OF cTnI DISTRIBUTION IN A REFERENCE POPULATION, HAS BEEN CONFIRMED THE DECISION THRESHOLD FOR GA DIAGNOSIS. Performed By: #### C MREP #### [facility] [address] [place] [address] Dr. Mel Barrientos CK [Catalytic activity/Vol] 127 U/L Normal 39-308 [facility] Comment on above: Performed By: #### P T, PTT #### [facility] [address] [place] [address] Dr. Mel Barrientos CK.MB [Mass/Vol] 2.30 ng/mL Normal <=3.60 [facility] Comment on above: Performed By: #### P T, PTT #### [facility] [address] [place] [address] Dr. Mel Barrientos HSTROP 6.3 pg/mL Normal 4.0-76.1 [facility] Comment on above: Result Comment: CUT- OFF POINTS HAVE BEEN ESTABLISHED BASED ON THE FOURTH UNIVERSAL DEFINITIONS OF MYOCARDIAL INFARCTION. THE UPPER REFERENCE LIMIT (URL) OF TROPONIN, DEFINED THE 99TH PERCENTILE OF cTnI DISTRIBUTION IN A REFERENCE POPULATION, HAS BEEN CONFIRMED THE DECISION THRESHOLD FOR GA DIAGNOSIS. Performed By: #### P T, PTT #### [facility] [address] [place] [address] Dr. Mel Barrientos CBC AUTO DIFFon 07-11-2022 BASO # 0.0 103/ul Normal 0.0-0.1 [facility] Comment on above: Performed By: #### C BC #### [facility] [address] [place] [address] Dr. Mel Barrientos Basophils/100 WBC (Bld) 0.3 % Normal 0.2-2.0 [facility] Comment on above: Performed By: #### C BC #### [facility] [address] [place] [address] Dr. Mel Barrientos EO # 0.1 103/ul Normal 0.0-0.7 [facility] Comment on above: Performed By: #### C BC #### [facility] [address] [place] [address] Dr. Mel Barrientos Eosinophils/100 WBC (Bld) 3.7 % Normal 0.9-7.0 [facility] Comment on above: Performed By: #### C BC #### [facility] [address] [place] [address] Dr. Mel Barrientos Erythrocyte distribution width (RBC) [Ratio] 13.3 % Normal 11.0-15.0 [facility] Comment on above: Performed By: #### C BC #### [facility] [address] [place] [address] Dr. Mel Barrientos Hematocrit (Bld) [Volume fraction] 31.7 % Critically low 42.0-54.0 [facility] Comment on above: Performed By: #### C BC #### [facility] [address] [place] [address] Dr. Mel Barrientos Hemoglobin (Bld) [Mass/Vol] 9.3 g/dL Critically low 14.0-18.0 [facility] Comment on above: Performed By: #### C BC #### [facility] [address] [place] [address] Dr. Mel Barrientos IG # 0.01 10e3/ul Normal 0.00-0.03 [facility] Comment on above: Performed By: #### C BC #### [facility] [address] [place] [address] Dr. eMl Barrientos IG % 0.3 % Normal 0.0-0.5 [facility] Comment on above: Performed By: #### C BC #### [facility] [address] [place] [address] Dr. Mel Barrientos LYMPH # 1.0 103/ul Critically low 1.2-3.8 [facility] Comment on above: Performed By: #### C BC #### [facility] [address] [address] [address] Mel Barrientos Lymphocytes/100 WBC (Bld) 26.1 % Normal 20.5-60.0 [facility] Comment on above: Performed By: #### C BC #### [facility] [address] [address] [address] Mel Barrientos MANUAL DIFF REQ NO Normal [facility] Comment on above: Performed By: #### C BC #### [facility] [address] [place] [address] Dr. Mel Barrientos MCH (RBC) [Entitic mass] 33.9 pg Normal 25.9-34.0 [facility] Comment on above: Performed By: #### C BC #### [facility] [address] [place] [address] Dr. Mel Barrientos MCHC (RBC) [Mass/Vol] 29.3 g/dL Critically low 29.9-35.2 [facility] Comment on above: Performed By: #### C BC #### [facility] [address] [place] [address] Dr. Mel Barrientos MCV (RBC) [Entitic vol] 115.7 fL Critically high 80.0-94.0 [facility] Comment on above: Performed By: #### C BC #### [facility] [address] [place] [address] Dr. Mel Barrientos MONO # 0.5 103/ul Normal 0.3-0.8 [facility] Comment on above: Performed By: #### C BC #### [facility] [address] [place] [address] Dr. Mel Barrientos Monocytes/100 WBC (Bld) 13.3 % Critically high 1.7-12.0 [facility] Comment on above: Performed By: #### C BC #### [facility] [address] [place] [address] Dr. Mel Barrientos NEUT # 2.1 103/ul Normal 1.4-6.5 [facility] Comment on above: Performed By: #### C BC #### [facility] [address] [place] [address] Dr. Mel Barrientos Neutrophils/100 WBC (Bld) 56.3 % Normal 43.0-75.0 [facility] Comment on above: Performed By: #### C BC #### [facility] [address] [place] [address] Dr. Mel Barrientos Platelet mean volume (Bld) [Entitic vol] 9.2 fL Critically low 9.5-13.5 [facility] Comment on above: Performed By: #### C BC #### [facility] [address] [place] [address] Dr. Mel Barrientos PLT 259 103/ul Normal 150-450 [facility] Comment on above: Performed By: #### C BC #### [facility] [address] [place] [address] Dr. Mel Barrientos RBC 2.74 106/ul Critically low 4.70-6.10 [facility] Comment on above: Performed By: #### C BC #### [facility] [address] [place] [address] Dr. Mel Barrientos WBC 3.8 103/ul Critically low 4.0-11.0 [facility] Comment on above: Performed By: #### C BC #### [facility] Laboratory [address] [place] [address] Dr. Mel Barrientos Covid-19 PCR (CVDTB)on 06-29 SARS-CoV-2 (COVID-19) RNA NE+probe Ql (Unsp spec) Not detected Normal NOT DETECTED [facility] Comment on above: Result Comment: When [...] for this test is supported by the [place] of Health and Human Service's declaration that [...] Performed By: #### P T, PTT #### [facility] [address] [place] [address] Dr. Mel Barrientos GLYCOHEMOGLOBIN A1Con 2022 ADA RECOMMENDATION SEE BELOW Normal [facility] Comment on above: Result Comment: ADA RECOMMENDED LIMIT 4.0 - 6.0 ADA THERAPEUTIC TARGET < 7.0 ACTION SUGGESTED > 7.0 Performed By: #### L IPID, CMP #### [facility] [address] [place] [address] Dr. Mel Barrientos Glucose [Mass/Vol] 128 mg/dL Normal [facility] Comment on above: Performed By: #### L IPID, CMP #### [facility] [address] [place] [address] Dr. Mel Barrientos HbA1c (Bld) [Mass fraction] 6.1 % Normal 4.5-6.2 [facility] Comment on above: Performed By: #### L IPID, CMP #### [facility] [address] [place] [address] Dr. Mel Barrientos LIPASEon 07-11-2022 Lipase [Catalytic activity/Vol] 10.0 U/L Critically low 73.0-393.0 [facility] Comment on above: Performed By: #### L IPID, CMP #### [facility] [address] [place] [address] Dr. Mel Barrientos PROF 14(COMP METB)on 023 Albumin [Mass/Vol] 3.1 g/dL Critically low 3.4-5.0 [facility] Comment on above: Performed By: #### L IPID, CMP #### [facility] [address] [place] [address] Dr. Mel Barrientos Albumin/Globulin [Mass ratio] 0.7 {ratio} Normal [facility] Comment on above: Performed By: #### L IPID, CMP #### [facility] [address] [address] [address] Mel Barrientos ALP [Catalytic activity/Vol] 143 U/L Critically high 46-116 [facility] Comment on above: Performed By: #### L IPID, CMP #### [facility] [address] [address] [address] Mel Barrientos ALT [Catalytic activity/Vol] 52 U/L Normal 16-63 [facility] Comment on above: Performed By: #### L IPID, CMP #### [facility] [address] [address] [address] Mel Barrientos Anion gap [Moles/Vol] 12.7 mmol/L Normal [facility] e [facility] Comment on above: Performed By: #### L IPID, CMP #### [facility] [address] [place] [address] Dr. Mel Barrientos AST [Catalytic activity/Vol] 31 U/L Normal 15-37 [facility] Comment on above: Performed By: #### L IPID, CMP #### [facility] [address] [place] [address] Dr. Mel Barrientos Bilirubin [Mass/Vol] 0.3 mg/dL Normal 0.2-1.0 [facility] Comment on above: Performed By: #### L IPID, CMP #### [facility] [address] [place] [address] Dr. Mel Barrientos Calcium [Mass/Vol] 8.6 mg/dL Normal 8.5-10.1 [facility] Comment on above: Performed By: #### L IPID, CMP #### [facility] [address] [place] [address] Dr. Mel Barrientos Chloride [Moles/Vol] 103 mmol/L Normal 98-107 [facility] Comment on above: Performed By: #### L IPID, CMP #### [facility] [address] [address] [address] Mel Barrientos CO2 [Moles/Vol] 24.7 mmol/L Normal 21.0-32.0 [facility] Comment on above: Performed By: #### L IPID, CMP #### [facility] [address] [address] [address] Mel Barrientos Creatinine [Mass/Vol] 0.90 mg/dL Normal 0.70-1.30 [facility] Comment on above: Performed By: #### L IPID, CMP #### [facility] [address] [address] [address] Mel Barrientos EGFR-AF BRITISH >60 Normal >=60 [facility] Comment on above: Performed By: #### L IPID, CMP #### [facility] [address] [address] [address] Mel Barrientos EGFR-NON AF BRITISH >60 Normal >=60 [facility] Comment on above: Performed By: #### L IPID, CMP #### [facility] [address] [address] [address] Mel Barrientos Globulin (S) [Mass/Vol] 4.2 g/dL Normal [facility] Comment on above: Performed By: #### L IPID, CMP #### [facility] [address] [address] [address] Mel Barrientos Glucose [Mass/Vol] 204 mg/dL Critically high 74-106 [facility] Comment on above: Performed By: #### L IPID, CMP #### [facility] [address] [address] [address] Mel Barrientos Potassium [Moles/Vol] 4.4 mmol/L Normal 3.5-5.1 [facility] Comment on above: Performed By: #### L IPID, CMP #### [facility] [address] [address] [address] Mel Barrientos Protein [Mass/Vol] 7.3 g/dL Normal 6.4-8.2 [facility] Comment on above: Performed By: #### L IPID, CMP #### [facility] [address] [address] [address] Mel Barrientos Sodium [Moles/Vol] 136 mmol/L Normal 136-145 [facility] Comment on above: Performed By: #### L IPID, CMP #### [facility] [address] [place] [address] Dr. Mel Barrientos Urea nitrogen [Mass/Vol] 20.0 mg/dL Critically high 7.0-18.0 [facility] Comment on above: Performed By: #### L IPID, CMP #### [facility] [address] [place] [address] Dr. Mel Barrientos Urea nitrogen/Creatinine [Mass ratio] 22.2 mg/mg Normal [facility] Comment on above: Performed By: #### L IPID, CMP #### [facility] [address] [place] [address] Dr. Mel Barrientos PROTIMEon 07-11-2022 INR Coag (PPP) [Relative time] 1.14 {INR} Normal [facility] Comment on above: Performed By: #### P T, PTT #### [facility] [address] [place] [address] Dr. Mel Barrientos INR GUIDELINES SEE BELOW Normal [facility] Comment on above: Result Comment: JESSIKA RED INR: 2.0 - 3.0 CONDITIONS NOT LISTED BELOW 2.5 - 3.5 FOR PROSTHETIC HEART VALVE REPLACEMENT 2.5 - 3.5 RECURRENT THROMBOSIS Performed By: #### P T, PTT #### [facility] [address] [place] [address] Dr. Mel Barrientos PT Coag (PPP) [Time] 12.0 s Critically high 9.0-11.6 [facility] Comment on above: Performed By: #### P T, PTT #### [facility] [address] [place] [address] Dr. Mel Barrientos PTTon 07-11-2022 aPTT Coag (Bld) [Time] 30.8 s Normal 22.3-36.2 [facility] Comment on above: Performed By: #### P T, PTT #### [facility] [address] [place] [address] Dr. Mel Barrientos TROPONIN, HIGH SENSITIVITYon 07-11-2022 HSTROP 6.6 pg/mL Normal 4.0-76.1 [facility] Comment on above: Result Comment: CUT- OFF POINTS HAVE BEEN ESTABLISHED BASED ON THE FOURTH UNIVERSAL DEFINITIONS OF MYOCARDIAL INFARCTION. THE UPPER REFERENCE LIMIT (URL) OF TROPONIN, DEFINED THE 99TH PERCENTILE OF cTnI DISTRIBUTION IN A REFERENCE POPULATION, HAS BEEN CONFIRMED THE DECISION THRESHOLD FOR GA DIAGNOSIS. Performed By: #### L IPID, CMP #### [facility] [address] [address] [address] Mel Barrientos XR CHEST 1 Von [...] MAR MOE Date: 2022-07-11 14:05 Normal [facility] CA 19-9 BLDon 07-04-2022 Cancer Ag 19-9 Qn 9.0 [arb'U]/mL NINF - 36.0 U/mL [facility] Comment on above: Cancer antigen 19-9 test is used as an aid in monitoring response to treatment or recurrence in patients with established pancreatic, hepatobiliary, or gastrointestinal malignancies. Clinical correlation is required. The CA 19-9 Antigen test was performed using the [employer] [employer] DXI paramagnetic particle chemiluminescent immunoassay method. [...] any questions regarding this interpretation, please call [phone]. If you are unable to reach us at the number above, please feel free to contact [facility] at [phone]. DIVISION OF RADIOLOGY * * *Final Report* * * DATE OF EXAM: Jul 03 2022 2:07PM [facility] 0530 - CT ABD/PEL W IVCON / [...] performed concurrently and will be dictated separately. Neighborhood Planner (topogram) images: No additional findings. DIVISION OF RADIOLOGY Provider, Danette Figueroa [facility] - 07/04/2022 * * *Final Report* * * DATE OF EXAM: Jul 03 2022 2:07PM [facility] 0530 - CT ABD/PEL W IVCON / [...] performed concurrently and will be dictated separately. Neighborhood Planner (topogram) images: No additional findings. IMPRESSION IMPRESSION: [...] any questions regarding this interpretation, please call [phone]. If you are unable to reach us at the number above, please feel free to contact [facility] at [phone]. [facility] CT Abdomen and Pelvis W cont rast IVOrdered By: Ccf Provider on 07-04-[address] [facility] [address] Chest W contrast Petty IMPRESSION: 1. [...] any questions regarding this interpretation, please call [phone]. If you are unable to reach us at the number above, please feel free to contact [facility] at [phone]. DIVISION OF RADIOLOGY * * *Final Report* * * DATE OF EXAM: Jul 03 2022 2:07PM [facility] 0539 - CT CHEST W IVCON / [...] performed concurrently and will be dictated separately. Neighborhood Planner (topogram) images: No additional findings. DIVISION OF RADIOLOGY Provider, [facility] - 07/04/2022 * * *Final Report* * * DATE OF EXAM: Jul 03 2022 2:07PM [facility] 0539 - CT CHEST W IVCON / [...] performed concurrently and will be dictated separately. Neighborhood Planner (topogram) images: No additional findings. IMPRESSION IMPRESSION: [...] any questions regarding this interpretation, please call [phone]. If you are unable to reach us at the number above, please feel free to contact [facility] at [phone]. [facility] Cancer Ag 19-9 Qnon 01-06-20 23 Interpretation and review of laboratory results Normal [facility] FERRITIN BLDon 07-04-2022 Ferritin [Mass/Vol] 243.0 ng/mL 30.3 - 565.7 ng/mL [facility] FOLATE SERUMon 07-04-2022 Folate [Mass/Vol] 4.1 ng/mL Low 4.7 - PINF ng/mL [facility] Folate [Mass/Vol]on 07-04-19 Interpretation and review of laboratory results Abnormal [facility] Iron and Iron binding capaci ty panelon 07-04-2022 Interpretation and review of laboratory results Abnormal [facility] Iron [Mass/Vol] 30 ug/dL Low 41 - 186 ug/dL [facility] Iron binding capacity [Mass/Vol] 212 ug/dL Low 232 - 386 ug/dL [facility] Iron/TIBC [Molar ratio] 14.2 % Low 15.0 - 57.0 % [facility] No Panel Informationon 07-04 [facility] Interpretation and review of laboratory results Normal [facility] VITAMIN B12 BLOODon 07-04-19 Cobalamin (Vitamin B12) [Mass/Vol] 465 pg/mL 232 - 1245 pg/mL [facility] CBC W Auto Differential pane l (Bld)on 07-03-2022 Basophils (Bld) [#/Vol] [facility] Basophils/100 WBC (Bld) 0.6 % [facility] Differential cell count method Nom (Bld) Auto [facility] Eosinophils (Bld) [#/Vol] 0.19 10*3/uL [facility] Eosinophils/100 WBC (Bld) 5.7 % [facility] Erythrocyte distribution width (RBC) [Ratio] 13.3 % 11.5 - 15.0 % [facility] Hematocrit (Bld) [Volume fraction] 27.5 % Low 39.0 - 51.0 % [facility] Hemoglobin (Bld) [Mass/Vol] 8.7 g/dL Low 13.0 - 17.0 g/dL [facility] Immature granulocytes (Bld) [#/Vol] [facility] Immature granulocytes/100 WBC (Bld) 0.3 % [facility] Interpretation and review of laboratory results Abnormal [facility] Lymphocytes (Bld) [#/Vol] 0.83 10*3/uL Low [facility] Lymphocytes/100 WBC (Bld) 24.9 % [facility] MCH (RBC) [Entitic mass] 34.1 pg High 26.0 - 34.0 pg [facility] MCHC (RBC) [Mass/Vol] 31.6 g/dL 30.5 - 36.0 g/dL [facility] MCV (RBC) [Entitic vol] 107.8 fL High 80.0 - 100.0 fL [facility] Monocytes (Bld) [#/Vol] 0.41 10*3/uL [facility] Monocytes/100 WBC (Bld) 12.3 % [facility] Neutrophils (Bld) [#/Vol] 1.88 10*3/uL [facility] Neutrophils/100 WBC (Bld) 56.2 % [facility] Nucleated RBC (Bld) [#/Vol] [facility] Nucleated RBC/100 WBC (Bld) [Ratio] 0.0 % /100 WBC [facility] Platelet mean volume (Bld) [Entitic vol] 8.8 fL Low 9.0 - 12.7 fL [facility] Platelets (Bld) [#/Vol] 231 10*3/uL [facility] RBC (Bld) [#/Vol] 2.55 10*6/uL Low 4.20 - 6.00 m/uL [facility] WBC (Bld) [#/Vol] 3.34 10*3/uL Low [facility] This is an appended report. These results have been appended to a previously verified report. [facility] Comprehensive metabolic 2000 panelOrdered By: Arnulfo Emmanuel on 07-03-2022 Albumin [Mass/Vol] 3.5 g/dL Low 3.9 - 4.9 g/dL [facility] ALP [Catalytic activity/Vol] 140 U/L High 38 - 113 U/L [facility] ALT [Catalytic activity/Vol] 32 U/L 10 - 54 U/L [facility] Anion gap [Moles/Vol] 7 mmol/L Low 9 - 18 mmol/L [facility] AST [Catalytic activity/Vol] 27 U/L 14 - 40 U/L [facility] Bilirubin [Mass/Vol] 0.2 mg/dL 0.2 - 1 .3 mg/dL [facility] Calcium [Mass/Vol] 8.5 mg/dL 8.5 - 10. 2 mg/dL [facility] Chloride [Moles/Vol] 102 mmol/L 97 - 10 5 mmol/L [facility] CO2 [Moles/Vol] 21 mmol/L Low 22 - 30 mmol/L [facility] Creatinine [Mass/Vol] 0.70 mg/dL Low 0.73 - 1.22 mg/dL [facility] GFR/1.73 sq M.predicted among non-blacks MDRD (S/P/Bld) [Vol rate/Area] 102 mL/min/{1.73_m2} - PINF [facility] Comment on above: Estimated Glomerular Filtration Rate [...] 292 mg/dL High 74 - 99 mg/dL [facility] Comment on above: The [place] Diabete s Association (ADA) provides guidance for [...] Standards of Medical Care in Diabetes 2016, [place] [employer] Association. Diabetes Care. 2016.39(Suppl 1). Interpretation and review of laboratory results Abnormal [facility] Potassium [Moles/Vol] 4.4 mmol/L 3.7 - 5.1 mmol/L [facility] Protein [Mass/Vol] 6.3 g/dL 6.3 - 8.0 g/dL [facility] Sodium [Moles/Vol] 130 mmol/L Low 136 - 144 mmol/L [facility] Urea nitrogen [Mass/Vol] 23 mg/dL 9 - 24 mg/dL [facility] No Panel Informationon 07-03 Radiology Study observation (narrative) [facility] XR LSPINE MIN 4 VIEWSon 11- XR LSPINE MIN 4 VIEWS EXAMINATION: XR [...] by: REBA REID Date: 2022-05-13 07:55 Normal [facility] CA 19-9 Don 02-07-2022 Cancer Ag 19-9 Qn 15.0 [arb'U]/mL NINF - 36.0 U/mL [facility] Comment on above: Cancer antigen 19-9 test is used as an aid in monitoring response to treatment or recurrence in patients with established pancreatic, hepatobiliary, or gastrointestinal malignancies. Clinical correlation is required. Test analyzed by the [employer] DXI Method. Results obtained with different assay, methods or kits cannot be used interchangeably. CEA Don 02-07-2022 Carcinoembryonic Ag [Mass/Vol] 1.6 ng/mL NIN - 2.9 ng/mL [facility] Comment on above: Carcinoembryonic ant igen test is used as an aid in monitoring response to treatment or recurrence in patients with established colorectal, breast, lung, prostatic, pancreatic, and ovarian carcinomas. Clinical correlation is required. The [employer] [place] DXI 600/800 is used. Results obtained with different assay, methods or kits cannot be used interchangeably Cancer Ag 19-9 Qnon 02-08-20 Interpretation and review of laboratory results Normal [facility] Carcinoembryonic Ag [Mass/Vo l]on 02-07-2022 Interpretation and review of laboratory results Normal [facility] CBC W Auto Differential pane l (Bld)on 02-06-2022 Basophils (Bld) [#/Vol] NINF [facility] Basophils/100 WBC (Bld) 0.2 % [facility] Differential cell count method Nom (Bld) Auto [facility] Eosinophils (Bld) [#/Vol] 0.12 10*3/uL [facility] Eosinophils/100 WBC (Bld) 2.6 % [facility] Erythrocyte distribution width (RBC) [Ratio] 13.3 % 11.5 - 15.0 % [facility] Hematocrit (Bld) [Volume fraction] 29.4 % Low 39.0 - 51.0 % [facility] Hemoglobin (Bld) [Mass/Vol] 9.5 g/dL Low 13.0 - 17.0 g/dL [facility] Immature granulocytes (Bld) [#/Vol] [facility] Immature granulocytes/100 WBC (Bld) 0.2 % [facility] Interpretation and review of laboratory results Abnormal [facility] Lymphocytes (Bld) [#/Vol] 1.52 10*3/uL [facility] Lymphocytes/100 WBC (Bld) 32.6 % [facility] MCH (RBC) [Entitic mass] 34.7 pg High 26.0 - 34.0 pg [facility] MCHC (RBC) [Mass/Vol] 32.3 g/dL 30.5 - 36.0 g/dL [facility] MCV (RBC) [Entitic vol] 107.3 fL High 80.0 - 100.0 fL [facility] Monocytes (Bld) [#/Vol] 0.39 10*3/uL [facility] Monocytes/100 WBC (Bld) 8.4 % [facility] Neutrophils (Bld) [#/Vol] 2.61 10*3/uL [facility] Neutrophils/100 WBC (Bld) 56.0 % [facility] Nucleated RBC (Bld) [#/Vol] [facility] Nucleated RBC/100 WBC (Bld) [Ratio] 0.0 % /100 WBC [facility] Platelet mean volume (Bld) [Entitic vol] 9.2 fL 9.0 - 12.7 fL [facility] Platelets (Bld) [#/Vol] 302 10*3/uL [facility] RBC (Bld) [#/Vol] 2.74 10*6/uL Low 4.20 - 6.00 m/uL [facility] WBC (Bld) [#/Vol] 4.66 10*3/uL [facility] This is an appended report. These results have been appended to a previously verified report. [facility] CT Abdomen and Pelvis W cont rast [...] any questions regarding this interpretation, please call [phone]. If you are unable to reach us at the number above, please feel free to contact [facility] at [phone]. ZZZ_DO_NOT_ USE_DIVISIO N OF RADIOLOGY * * *Final Report* * * DATE OF EXAM: Feb 06 2022 2:20PM [facility] 0530 - CT ABD/PEL W IVCON / [...] chest CT performed will be reported separately. Neighborhood Planner (topogram) images: No additional findings. ZZZ_DO_NOT_ USE_DIVISIO N OF RADIOLOGY Provider, [facility] - 02/06/2022 * * *Final Report* * * DATE OF EXAM: Feb 06 2022 2:20PM [facility] 0530 - CT ABD/PEL W IVCON / [...] chest CT performed will be reported separately. Neighborhood Planner (topogram) images: No additional findings. IMPRESSION IMPRESSION: [...] any questions regarding this interpretation, please call [phone]. If you are unable to reach us at the number above, please feel free to contact [facility] at [phone]. [facility] CT Chest W contrast Petty IMPRESSION: 1. [...] any questions regarding this interpretation, please call [phone]. If you are unable to reach us at the number above, please feel free to contact [facility] at [phone]. ZZZ_DO_NOT_ USE_DIVISIO N OF RADIOLOGY * * *Final Report* * * DATE OF EXAM: Feb 06 2022 2:20PM [facility] 0539 - CT CHEST W IVCON / [...] findings. ZZZ_DO_NOT_ USE_DIVISIO N OF RADIOLOGY Provider, [facility] - 02/06/2022 * * *Final Report* * * DATE OF EXAM: Feb 06 2022 2:20PM [facility] 0539 - CT CHEST W IVCON / [...] any questions regarding this interpretation, please call [phone]. If you are unable to reach us at the number above, please feel free to contact [facility] at [phone]. [facility] Comprehensive metabolic 2000 panelOrdered By: Cody Bryson on 02-06-2022 Albumin [Mass/Vol] 3.5 g/dL Low 3.9 - 4.9 g/dL [facility] ALP [Catalytic activity/Vol] 166 U/L High 38 - 113 U/L [facility] ALT [Catalytic activity/Vol] 38 U/L 10 - 54 U/L [facility] Anion gap [Moles/Vol] 8 mmol/L Low 9 - 18 mmol/L [facility] AST [Catalytic activity/Vol] 30 U/L 14 - 40 U/L [facility] Bilirubin [Mass/Vol] 0.2 mg/dL 0.2 - 1 .3 mg/dL [facility] Calcium [Mass/Vol] 8.8 mg/dL 8.5 - 10. 2 mg/dL [facility] Chloride [Moles/Vol] 110 mmol/L High 97 - 10 5 mmol/L [facility] CO2 [Moles/Vol] 19 mmol/L Low 22 - 30 mmol/L [facility] Creatinine [Mass/Vol] 0.71 mg/dL Low 0.73 - 1.22 mg/dL [facility] GFR/1.73 sq M.predicted among non-blacks MDRD (S/P/Bld) [Vol rate/Area] 102 mL/min/{1.73_m2} - PINF [facility] Comment on above: Estimated Glomerular Filtration Rate [...] [Mass/Vol] 98 mg/dL 74 - 99 mg/dL [facility] Comment on above: The [place] Diabete s Association (ADA) provides guidance for [...] Standards of Medical Care in Diabetes 2016, [place] [employer]. Diabetes Care. 2016.39(Suppl 1). Interpretation and review of laboratory results Abnormal [facility] Potassium [Moles/Vol] 4.8 mmol/L 3.7 - 5.1 mmol/L [facility] Protein [Mass/Vol] 6.4 g/dL 6.3 - 8.0 g/dL [facility] Sodium [Moles/Vol] 137 mmol/L 136 - 144 mmol/L [facility] Urea nitrogen [Mass/Vol] 26 mg/dL High 9 - 24 mg/dL [facility] No Panel InformationOrdered By: Ccf Provider on 02-06-2022 [facility] No Panel Informationon 02-06 Radiology Study observation (narrative) [facility] LIPID PROFILEon 02-04-2022 CHOL-HDL RATIO NORM SEE BELOW Normal [facility] Comment on above: Result Comment: 3.3 - 4.4 LOW RISK 4.4 - 7.1 AVERAGE RISK 7.1 - 11.0 MODERATE RISK >11.0 HIGH RISK Performed By: #### L IPID, CMP #### [facility] [address] [address] [address] Mel Barrientos Cholesterol [Mass/Vol] 100 mg/dL Normal <=200 [facility] Comment on above: Performed By: #### L IPID, CMP #### [facility] [address] [address] [address] eMl Barrientos Cholesterol in HDL [Mass/Vol] 20 mg/dL Critically low 40-60 [facility] Comment on above: Performed By: #### L IPID, CMP #### [facility] [address] [address] [address] Mel Barrientos Cholesterol in LDL [Mass/Vol] 63.6 mg/dL Normal [facility] Comment on above: Performed By: #### L IPID, CMP #### [facility] [address] [place] [address] Dr. Mel Barrientos Cholesterol.total/Cho lesterol in HDL [Mass ratio] 5.0 {ratio} Normal [facility] Comment on above: Performed By: #### L IPID, CMP #### [facility] [facility] [address] [address] [address] Mel Barrientos HDL NORMAL > or = 60 mg/dl - LO W CARDIOVASCULAR RISK <40 mg/dl - HIGH CARDIOVASCULAR RISK Normal [facility] Comment on above: Performed By: #### L IPID, CMP #### [facility] [address] [address] [address] Mel Barrientos LDL CALC NORMAL SEE BELOW Normal [facility] Comment on above: Result Comment: <100 mg/dl OPTIMAL 100 - 129 mg/dl NEAR OR ABOVE OPTIMAL 130 - 159 mg/dl BORDERLINE HIGH 160 - 189 mg/dl HIGH >190 mg/dl VERY HIGH Performed By: #### L IPID, CMP #### [facility] [address] [address] [address] Mel Barrientos Triglyceride [Mass/Vol] 82 mg/dL Normal <=150 [facility] Comment on above: Performed By: #### L IPID, CMP #### [facility] [address] [address] [address] Mel Barrientos VLDL CALC 16.4 mg/dL Normal [facility] Comment on above: Performed By: #### L IPID, CMP #### [facility] [address] [place] [address] Dr. Mel Barrientos PROF CHEM 8 (BAS METB)on Anion gap [Moles/Vol] 15.8 mmol/L Normal [facility] Comment on above: Performed By: #### L IPID, CMP #### [facility] [address] [place] [address] Dr. Mel Barrientos Calcium [Mass/Vol] 8.5 mg/dL Normal 8.5-10.1 [facility] Comment on above: Performed By: #### L IPID, CMP #### [facility] [address] [place] [address] Dr. Mel Barrientos Chloride [Moles/Vol] 109 mmol/L Critically high 98-107 [facility] Comment on above: Performed By: #### L IPID, CMP #### [facility] [address] [place] [address] Dr. Mel Barrientos CO2 [Moles/Vol] 17.7 mmol/L Critically low 21.0-32.0 [facility] Comment on above: Performed By: #### L IPID, CMP #### [facility] [address] [place] [address] Dr. Mel Barrientos Creatinine [Mass/Vol] 0.79 mg/dL Normal 0.70-1.30 [facility] Comment on above: Performed By: #### L IPID, CMP #### [facility] [address] [place] [address] Dr. Mel Barrientos EGFR-AF BRITISH >60 Normal >=60 [facility] Comment on above: Performed By: #### L IPID, CMP #### [facility] [address] [place] [address] Dr. Mel Barrientos EGFR-NON AF BRITISH >60 Normal >=60 [facility] Comment on above: Performed By: #### L IPID, CMP #### [facility] [address] [place] [address] Dr. Mel Barrientos Glucose [Mass/Vol] 116 mg/dL Critically high 74-106 [facility] Comment on above: Performed By: #### L IPID, CMP #### [facility] [address] [place] [address] Dr. Mel Barrientos Potassium [Moles/Vol] 4.5 mmol/L Normal 3.5-5.1 [facility] Comment on above: Performed By: #### L IPID, CMP #### [facility] [address] [place] [address] Dr. Mel Barrientos Sodium [Moles/Vol] 138 mmol/L Normal 136-145 [facility] Comment on above: Performed By: #### L IPID, CMP #### [facility] [address] [place] [address] Dr. Mel Barrientos Urea nitrogen [Mass/Vol] 29.0 mg/dL Critically high 7.0-18.0 [facility] Comment on above: Performed By: #### L IPID, CMP #### [facility] [address] [place] [address] Dr. Mel Barrientos Urea nitrogen/Creatinine [Mass ratio] 36.7 mg/mg Normal [facility] Comment on above: Performed By: #### L IPID, CMP #### [facility] [address] [place] [address] Dr. Mel Andrews 02-04-2022 AST [Catalytic activity/Vol] 35 U/L Normal 15-37 [facility] Comment on above: Performed By: #### B MP, AST, ALT, LIPID #### [facility] [address] [place] [address] Dr. Mel RODARTEPTon 02-04-2022 ALT [Catalytic activity/Vol] 64 U/L Critically high 16-63 [facility] Comment on above: Performed By: #### L IPID, CMP #### [facility] [address] [place] [address] Dr. Mel Barrientos Office Visit (Cardiology)on 01-09-2022 [...] Aminotransferase, Serum; Status:Active - Retrospective Authorization; Requested for:[id number]; AST; Status:Active - Retrospective Authorization; Requested for:[id number]; Basic Metabolic Panel; Status:Active - Retrospective Authorization; Requested for:[id number]; Lipid Panel; Status:Active - Retrospective Authorization; Requested for:[id number]; SocHx: Former smoker Tobacco Use Screening; Status:Complete; Done: [id number] Patient Instructions By signing my name below, [...] of 40%. He is status post anterior GA, with PCI of the LAD in 2010. [...] Oral TabletTAKE 1 TABLET AT BEDTIME. Creon [id number] UNIT Oral Capsule Delayed Release Particles1 tablet [...] negative for complaint. Vitals Vital Signs Recorded: [id number] 11:21AM Heart Rate80, R Radial [id number], RUE Dsnqiiqkn83, RUE Height5 ft 8 in Muwosv934 lb BMI Ehujobzqez72.9 kg/m2 BSA Calculated1.78 Tobacco Useb) No PHQ-2 [...] Neck: n (more content not included)... Normal [facility] VITAMIN B12on 11-26-2021 Cobalamin (Vitamin B12) [Mass/Vol] 609.0 pg/mL Normal 193.0-986. 0 [facility] Comment on above: Performed By: #### P T, PTT #### [facility] [address] [place] [address] Dr. Mel Barrientos CBC AUTO DIFFon 11-12-2021 BASO # 0.0 103/ul Normal 0.0-0.1 [facility] Comment on above: Performed By: #### C BC #### [facility] [address] [place] [address] Dr. Mel Barrientos Basophils/100 WBC (Bld) 0.4 % Normal 0.2-2.0 [facility] Comment on above: Performed By: #### C BC #### [facility] [address] [place] [address] Dr. Mel Barrientos EO # 0.1 103/ul Normal 0.0-0.7 [facility] Comment on above: Performed By: #### C BC #### [facility] [address] [place] [address] Dr. Mel Barrientos Eosinophils/100 WBC (Bld) 1.6 % Normal 0.9-7.0 [facility] Comment on above: Performed By: #### C BC #### [facility] [address] [place] [address] Dr. Mel Barrientos Erythrocyte distribution width (RBC) [Ratio] 14.4 % Normal 11.0-15.0 [facility] Comment on above: Performed By: #### C BC #### [facility] [address] [place] [address] Dr. Mel Barrientos Hematocrit (Bld) [Volume fraction] 38.1 % Critically low 42.0-54.0 [facility] Comment on above: Performed By: #### C BC #### [facility] [address] [place] [address] Dr. Mel Barrientos Hemoglobin (Bld) [Mass/Vol] 12.5 g/dL Critically low 14.0-18.0 [facility] Comment on above: Performed By: #### C BC #### [facility] [address] [place] [address] Dr. Mel Barrientos IG # 0.02 10e3/ul Normal 0.00-0.03 [facility] Comment on above: Performed By: #### C BC #### [facility] [address] [place] [address] Dr. Mel Barrientos IG % 0.4 % Normal 0.0-0.5 [facility] Comment on above: Performed By: #### C BC #### [facility] [address] [place] [address] Dr. Mel Barrientos LYMPH # 2.2 103/ul Normal 1.2-3.8 [facility] Comment on above: Performed By: #### C BC #### [facility] [address] [place] [address] Dr. Mel Barrientos Lymphocytes/100 WBC (Bld) 43.2 % Normal 20.5-60.0 [facility] Comment on above: Performed By: #### C BC #### [facility] [address] [place] [address] Dr. Mel Barrientos MANUAL DIFF REQ NO Normal [facility] Comment on above: Performed By: #### C BC #### [facility] [address] [place] [address] Dr. Mel Barrientos MCH (RBC) [Entitic mass] 35.1 pg Critically high 25.9-34.0 [facility] Comment on above: Performed By: #### C BC #### [facility] [address] [place], [place] [id number] Dr. Mel Barrientos MCHC (RBC) [Mass/Vol] 32.8 g/dL Normal 29.9-35.2 [facility] Comment on above: Performed By: #### C BC #### [facility] [address] [place] [address] Dr. Mel Barrientos MCV (RBC) [Entitic vol] 107.0 fL Critically high 80.0-94.0 [facility] Comment on above: Result Comment: MACR OCYTOSIS CONFIRMED ON PERIPHERAL SMEAR Performed By: #### C BC #### [facility] [address] [place] [address] Dr. Mel Barrientos MONO # 0.5 103/ul Normal 0.3-0.8 [facility] Comment on above: Performed By: #### C BC #### [facility] [address] [place] [address] Dr. Mel Barrientos Monocytes/100 WBC (Bld) 9.4 % Normal 1.7-12.0 [facility] Comment on above: Performed By: #### C BC #### [facility] [address] [place] [address] Dr. Mel Barrientos NEUT # 2.3 103/ul Normal 1.4-6.5 [facility] Comment on above: Performed By: #### C BC #### [facility] [address] [place] [address] Dr. Mel Barrientos Neutrophils/100 WBC (Bld) 45.0 % Normal 43.0-75.0 [facility] Comment on above: Performed By: #### C BC #### [facility] [address] [place] [address] Dr. Mel Barrientos Platelet mean volume (Bld) [Entitic vol] 9.3 fL Critically low 9.5-13.5 [facility] Comment on above: Performed By: #### C BC #### [facility] [address] [place] [address] Dr. Mel Barrientos PLT 307 103/ul Normal 150-450 [facility] Comment on above: Performed By: #### C BC #### [facility] [address] [place] [address] Dr. Mel Barrientos RBC 3.56 106/ul Critically low 4.70-6.10 [facility] Comment on above: Performed By: #### C BC #### [facility] [address] [place] [address] Dr. Mel Barrientos WBC 5.1 103/ul Normal 4.0-11.0 [facility] Comment on above: Performed By: #### C BC #### [facility] [address] [place] [address] Dr. Mel Barrientos PROF 14(COMP METB)on 022 Albumin [Mass/Vol] 2.3 g/dL Critically low 3.4-5.0 [facility] Comment on above: Performed By: #### L IPID, CMP #### [facility] [address] [place] [address] Dr. Mel Barrientos Albumin/Globulin [Mass ratio] 0.6 {ratio} Normal [facility] Comment on above: Performed By: #### L IPID, CMP #### [facility] [address] [place] [address] Dr. Mel Barrientos ALP [Catalytic activity/Vol] 189 U/L Critically high 46-116 [facility] Comment on above: Performed By: #### L IPID, CMP #### [facility] [address] [place] [address] Dr. Mel Barrientos ALT [Catalytic activity/Vol] 86 U/L Critically high 16-63 [facility] Comment on above: Performed By: #### L IPID, CMP #### [facility] [address] [place] [address] Dr. Mel Barrientos Anion gap [Moles/Vol] 15.4 mmol/L Normal [facility] Comment on above: Performed By: #### L IPID, CMP #### [facility] [address] [place] [address] Dr. Mel Barrientos AST [Catalytic activity/Vol] 67 U/L Critically high 15-37 [facility] Comment on above: Performed By: #### L IPID, CMP #### [facility] [address] [address] [address] Mel Barrientos Bilirubin [Mass/Vol] 0.4 mg/dL Normal 0.2-1.0 [facility] Comment on above: Performed By: #### L IPID, CMP #### [facility] [address] [place] [address] Dr. Mel Barrientos Calcium [Mass/Vol] 7.7 mg/dL Critically low 8.5-10.1 [facility] Comment on above: Performed By: #### L IPID, CMP #### [facility] [address] [place] [address] Dr. Mel Barrientos Chloride [Moles/Vol] 106 mmol/L Normal 98-107 [facility] Comment on above: Performed By: #### L IPID, CMP #### [facility] [address] [place] [address] Dr. Mel Barrientos CO2 [Moles/Vol] 17.7 mmol/L Critically low 21.0-32.0 [facility] Comment on above: Performed By: #### L IPID, CMP #### [facility] [address] [place] [address] Dr. Mel Barrientos Creatinine [Mass/Vol] 0.91 mg/dL Normal 0.70-1.30 [facility] Comment on above: Performed By: #### L IPID, CMP #### [facility] [address] [place] [address] Dr. Mel Barrientos EGFR-AF BRITISH >60 Normal >=60 [facility] Comment on above: Performed By: #### L IPID, CMP #### [facility] [address] [place] [address] Dr. Mel Barrientos EGFR-NON AF BRITISH >60 Normal >=60 [facility] Comment on above: Performed By: #### L IPID, CMP #### [facility] [address] [place] [address] Dr. Mel Barreintos Globulin (S) [Mass/Vol] 3.8 g/dL Normal [facility] Comment on above: Performed By: #### L IPID, CMP #### [facility] [address] [address] [address] Mel Barrientos Glucose [Mass/Vol] 77 mg/dL Normal 74-106 [facility] Comment on above: Performed By: #### L IPID, CMP #### [facility] [address] [address] [address] Mel Barrientos Potassium [Moles/Vol] 4.1 mmol/L Normal 3.5-5.1 [facility] Comment on above: Performed By: #### L IPID, CMP #### [facility] [address] [place] [address] Dr. Mel Barrientos Protein [Mass/Vol] 6.1 g/dL Critically low 6.4-8.2 [facility] Comment on above: Performed By: #### L IPID, CMP #### [facility] [address] [place] [address] Dr. Mel Barrientos Sodium [Moles/Vol] 135 mmol/L Critically low 136-145 [facility] Comment on above: Performed By: #### L IPID, CMP #### [facility] [address] [place] [address] Dr. Mel Barrientos Urea nitrogen [Mass/Vol] 25.0 mg/dL Critically high 7.0-18.0 [facility] Comment on above: Performed By: #### L IPID, CMP #### [facility] [address] [place] [address] Dr. Mel Barrientos Urea nitrogen/Creatinine [Mass ratio] 27.5 mg/mg Normal [facility] Comment on above: Performed By: #### L IPID, CMP #### [facility] [address] [place] [address] Dr. Mel Barrientos GLYCOHEMOGLOBIN A1Con 2021 ADA RECOMMENDATION ADA THERAPEUTIC TARG ET 6.0 - 7.0 ACTION SUGGESTED > 7.0 Normal [facility] Comment on above: Performed By: #### L IPID, CMP #### [facility] [address] [place] [address] Dr. Mel Barrientos Glucose [Mass/Vol] 100 mg/dL Normal [facility] Comment on above: Performed By: #### L IPID, CMP #### [facility] [address] [address] [address] Mel Barrientos HbA1c (Bld) [Mass fraction] 5.1 % Normal <=6.0 [facility] Comment on above: Performed By: #### L IPID, CMP #### [facility] [address] [address] [address] Mel Barrientos LIPID PROFILEon 10-10-2021 CHOL-HDL RATIO NORM SEE BELOW Normal [facility] Comment on above: Result Comment: 3.3 - 4.4 LOW RISK 4.4 - 7.1 AVERAGE RISK 7.1 - 11.0 MODERATE RISK >11.0 HIGH RISK Performed By: #### L IPID, CMP #### [facility] [address] [place] [address] Dr. Mel Barrientos Cholesterol [Mass/Vol] 63 mg/dL Normal <=200 [facility] Comment on above: Performed By: #### L IPID, CMP #### [facility] [address] [address] [address] Mel Barrientos Cholesterol in HDL [Mass/Vol] 12 mg/dL Critically low 40-60 [facility] Comment on above: Performed By: #### L IPID, CMP #### [facility] [address] [place] [address] Dr. Mel Barrientos Cholesterol in LDL [Mass/Vol] 32.2 mg/dL Normal [facility] Comment on above: Performed By: #### L IPID, CMP #### [facility] [address] [address] [address] Mel Barrientos Cholesterol.total/Cho lesterol in HDL [Mass ratio] 5.3 {ratio} Normal [facility] Comment on above: Performed By: #### L IPID, CMP #### [facility] [address] [address] [address] Mel Barrientos HDL NORMAL > or = 60 mg/dl - LO W CARDIOVASCULAR RISK <40 mg/dl - HIGH CARDIOVASCULAR RISK Normal [facility] Comment on above: Performed By: #### L IPID, CMP #### [facility] [address] [place] [address] Dr. Mel Barrientos LDL CALC NORMAL SEE BELOW Normal [facility] Comment on above: Result Comment: <100 mg/dl OPTIMAL 100 - 129 mg/dl NEAR OR ABOVE OPTIMAL 130 - 159 mg/dl BORDERLINE HIGH 160 - 189 mg/dl HIGH >190 mg/dl VERY HIGH Performed By: #### L IPID, CMP #### [facility] [address] [address] [address] Mel Barrientos Triglyceride [Mass/Vol] 94 mg/dL Normal <=150 [facility] Comment on above: Performed By: #### L IPID, CMP #### [facility] [address] [place] [address] Dr. Mel Barrientos VLDL CALC 18.8 mg/dL Normal [facility] Comment on above: Performed By: #### L IPID, CMP #### [facility] [address] [place] [address] Dr. Mel Barrientos PROF 14(COMP METB)on 022 Albumin [Mass/Vol] 2.4 g/dL Critically low 3.4-5.0 Th [facility] Comment on above: Performed By: #### L IPID, CMP #### [facility] [address] [place] [address] Dr. Mel Barrientos Albumin/Globulin [Mass ratio] 0.8 {ratio} Normal [facility] Comment on above: Performed By: #### L IPID, CMP #### [facility] [address] [place] [address] Dr. Mel Barrientos ALP [Catalytic activity/Vol] 153 U/L Critically high 46-116 [facility] Comment on above: Performed By: #### L IPID, CMP #### [facility] [address] [place] [address] Dr. Mel Barrientos ALT [Catalytic activity/Vol] 133 U/L Critically high 16-63 [facility] Comment on above: Performed By: #### L IPID, CMP #### [facility] [address] [place], [place] [address] Dr. Mel Barrientos Anion gap [Moles/Vol] 12.1 mmol/L Normal [facility] Comment on above: Performed By: #### L IPID, CMP #### [facility] [address] [place] [address] Dr. Mel Barrientos AST [Catalytic activity/Vol] 215 U/L Critically high 15-37 [facility] Comment on above: Performed By: #### L IPID, CMP #### [facility] [address] [place] [address] Dr. Mel Barrientos Bilirubin [Mass/Vol] 0.4 mg/dL Normal 0.2-1.3 [facility] Comment on above: Performed By: #### L IPID, CMP #### [facility] [address] [place] [address] Dr. Mel Barrientos Calcium [Mass/Vol] 7.6 mg/dL Critically low 8.5-10.1 [facility] Comment on above: Performed By: #### L IPID, CMP #### [facility] [address] [place] [address] Dr. Mel Barrientos Chloride [Moles/Vol] 107 mmol/L Normal 98-107 [facility] Comment on above: Performed By: #### L IPID, CMP #### [facility] [address] [place] [address] Dr. Mel Barrientos CO2 [Moles/Vol] 22.8 mmol/L Normal 22.0-30.0 [facility] Comment on above: Performed By: #### L IPID, CMP #### [facility] [address] [place] [address] Dr. Mel Barrientos Creatinine [Mass/Vol] 0.99 mg/dL Normal 0.66-1.25 [facility] Comment on above: Performed By: #### L IPID, CMP #### [facility] [address] [place] [address] Dr. Mel Barrientos EGFR-AF BRITISH >60 Normal >=60 [facility] Comment on above: Performed By: #### L IPID, CMP #### [facility] [address] [address] [address] Mel Barrientos EGFR-NON AF BRITISH >60 Normal >=60 [facility] Comment on above: Performed By: #### L IPID, CMP #### [facility] [address] [address] [address] Mel Barrientos Globulin (S) [Mass/Vol] 3.2 g/dL Normal [facility] Comment on above: Performed By: #### L IPID, CMP #### [facility] [address] [place] [address] Dr. Mle Barrientos Glucose [Mass/Vol] 68 mg/dL Critically low 74-106 Th [facility] Comment on above: Performed By: #### L IPID, CMP #### [facility] [address] [place] [address] Dr. Mel Barrientos Potassium [Moles/Vol] 4.9 mmol/L Normal 3.4-5.0 [facility] Comment on above: Performed By: #### L IPID, CMP #### [facility] [address] [place] [address] Dr. Mel Barrientos Protein [Mass/Vol] 5.6 g/dL Critically low 6.1-8.2 Th [facility] Comment on above: Performed By: #### L IPID, CMP #### [facility] [address] [place] [address] Dr. Mel Barrientos Sodium [Moles/Vol] 137 mmol/L Normal 137-145 [facility] Comment on above: Performed By: #### L IPID, CMP #### [facility] [address] [place] [address] Dr. Mel Barrientos Urea nitrogen [Mass/Vol] 30.0 mg/dL Critically high 7.0-18.0 [facility] Comment on above: Performed By: #### L IPID, CMP #### [facility] [address] [place] [address] Dr. Mel Barrientos Urea nitrogen/Creatinine [Mass ratio] 30.3 mg/mg Normal [facility] Comment on above: Performed By: #### L IPID, CMP #### [facility] [address] [address] [address] Mel Barrientos CASE MANAGEMon 10-09-2017 CASE MANAGEM HNO ID: [id number] thor: Clementina Culver (Lsw)uloService: Care ManagementAuthor Type: Social WorkerType: Care Mgt Progress NoteFiled: 10/09/2017 3:12 PMNote Text:CARE MANAGEMENT DISCHARGE NOTESERVICE DATE: 10/09/2017SERVICE TIME: 3:02 PM LOS: 9 daysAdmission Date: 09/30/2017DISCHARGE ARRANGEMENT (list agency and phone number)long term facilityProvider[facility]YDRAMCWE ASSESSMENT:Caregiver is ready, willing and able to meet the patient's needs asrecommended by the inter-professional team? YesPatient's transition needs and plan for meeting these needs: SNFDoes the patient have an acute stroke diagnosis, or has the patient had astroke during this admission? NoHANDOFF COMMUNICATION:Primary Care Physician: Dr. Adriane Nichols EMUMYRDBEGJNFO ARRANGEMENTS:Car FamilyADDITIONAL CONTACT RESOURCES: Pt sister Briana Muller [phone] Prior to Discharge: Ready for DischargePt medically cleared for d/c. Pt referral updated and Liaison met with Ptand nursing this afternoon. CM prepared d/c packet and 7000 and placed onPt chart w/number for nursing to call report. Per Pt and Pt sister familyto transport Pt around [phone] today. Text to Allegra GARCIA) to contactnursing on Pt d/c instructions.SIGNATURE: TRACI Hammer PATIENT NAME: Rocio FrischDATE: October 09, 2017 : 3:02 PM PAGER/CONTACT #: [phone] Normal [facility] CBC and Differentialon 10-09 Abs Baso <0.03 Normal <0.11 [facility] Comment on above: Performed By: #### P T, PTT, AMYL, CMP, LIPA, PHOS ####[facility] [place], [place] [phone]#### TRANSF ####[place] [address] [address] [address] Abs Jerome 0.40 k/uL Normal <0.87 [facility] Comment on above: Performed By: #### P T, PTT, AMYL, CMP, LIPA, PHOS ####[place] [address]#### TRANSF ####[place] [address] [address] [place] [address] Abs Neut 3.59 k/uL Normal 1.45-7.50 [facility] Comment on above: Performed By: #### P T, PTT, AMYL, CMP, LIPA, PHOS ####[place] [address]#### TRANSF ####[place] [address] Basophils/100 WBC Auto (Bld) 0.3 % Normal [facility] Comment on above: Performed By: #### P T, PTT, AMYL, CMP, LIPA, PHOS ####[place] [address]#### TRANSF ####[place] [address] DTYPE Auto Diff Normal [facility] Comment on above: Performed By: #### P T, PTT, AMYL, CMP, LIPA, PHOS ####[place] [address]#### TRANSF ####[place] [address] Eosinophils 0.10 10*3/uL Normal <0.46 [facility] Comment on above: Performed By: #### P T, PTT, AMYL, CMP, LIPA, PHOS ####[place] [address]#### TRANSF ####[address] [address] Eosinophils/100 leukocytes 1.7 % Normal [facility] Comment on above: Performed By: #### P T, PTT, AMYL, CMP, LIPA, PHOS ####[place] [address]#### TRANSF ####[place] [address] Erythrocyte distribution width Auto Ratio (RBC) 16.8 % High 11.5-15.0 [facility] Comment on above: Performed By: #### P T, PTT, AMYL, CMP, LIPA, PHOS ####[place] [address]#### TRANSF ####[place] [address] Erythrocytes (RBC) 3.79 10*6/uL Low 4.20-6.00 [facility] Comment on above: Performed By: #### P T, PTT, AMYL, CMP, LIPA, PHOS ####[place] [address]#### TRANSF ####[place] [address] Hematocrit (HCT) 29.8 % Low 39.0-51.0 [facility] Comment on above: Performed By: #### P T, PTT, AMYL, CMP, LIPA, PHOS ####[place] [address]#### TRANSF ####[place] [address] Hemoglobin mass conc (Bld) 9.5 g/dL Low 13.0-17.0 [facility] Comment on above: Performed By: #### P T, PTT, AMYL, CMP, LIPA, PHOS ####[place] [phone]#### TRANSF ####[place] [address] Lymphocytes 1.69 10*3/uL Normal 1.00-4.00 [facility] Comment on above: Performed By: #### P T, PTT, AMYL, CMP, LIPA, PHOS ####[place] [address]#### TRANSF ####[place] [address] Lymphocytes/100 leukocytes 29.1 % Normal [facility] Comment on above: Performed By: #### P T, PTT, AMYL, CMP, LIPA, PHOS ####[place] [address]#### TRANSF ####[place] [address] MCH 25.1 pG Low 26.0-34.0 [facility] Comment on above: Performed By: #### P T, PTT, AMYL, CMP, LIPA, PHOS ####[place] [address]#### TRANSF ####[place] [address] MCHC mass conc (RBC) 31.9 g/dL Normal 30.5-36.0 [facility] Comment on above: Performed By: #### P T, PTT, AMYL, CMP, LIPA, PHOS ####[place] [address]#### TRANSF ####[place] [address] MCV 78.6 fL Low 80.0-100.0 [facility] Comment on above: Performed By: #### P T, PTT, AMYL, CMP, LIPA, PHOS ####[address]#### TRANSF ####[place] [phone] Monocytes/100 leukocytes 6.9 % Normal [facility] Comment on above: Performed By: #### P T, PTT, AMYL, CMP, LIPA, PHOS ####[address]#### TRANSF ####[place] [phone] Neutrophils/100 WBC Auto (Bld) 62.0 % Normal [facility] Comment on above: Performed By: #### P T, PTT, AMYL, CMP, LIPA, PHOS ####[address]#### TRANSF ####[place] [address] Platelet mean volume (PMV) 9.3 fL Normal 9.0-12.7 [facility] Comment on above: Performed By: #### P T, PTT, AMYL, CMP, LIPA, PHOS ####[address]#### TRANSF ####[place] [phone] Platelets 421 10*3/uL High 150-400 [facility] Comment on above: Performed By: #### P T, PTT, AMYL, CMP, LIPA, PHOS ####[address]#### TRANSF ####[place] [phone] WBC (Leukocytes) 5.80 10*3/uL Normal 3.70-11.00 [facility] Comment on above: Performed By: #### P T, PTT, AMYL, CMP, LIPA, PHOS ####[facility] [place], [place] [phone]#### TRANSF ####[facility] [place], [place] [phone] CNDSon 10-09-2017 CNDS HNO ID: [id number] thor: Harmony (Georges) MichaelService: General SurgeryAuthor Type: ResidentType: Discharge SummariesFiled: 10/27/2017 12:15 PMNote Text:DISCHARGE SUMMARYPATIENT NAME: Rocio Jackson ADMISSION DATE: 09/30/2017MRN: [id number] DISCHARGE DATE: ATTENDING PHYSICIAN: Michael Jolley)REASON FOR [...] PATIENT: (To pull info documented from the [employer] Orderset Complete O/S First): No orders of [...] Glucose (mg/dL) is:Less than 110 Give 0 onhuw012-749 Give 0 uxjot184-855 Give 2 mtoum646-920 Give 4 nmeyw095-198 Give 6 zqfuy844-500 Give 8 tldjy232-726 Give 10 unitsGreater than 400 Give 10 [...] 20 mL by mouth once daily.Med Update, Upjx-krddrmtorm-cxotgmwl-arnulfo lase (CREON 24) 24,000-76,000 -120,000 unit cpDRTake [...] PCP: Adriane Nichols AppointmentsDate Time Provider Department [place]/29/2017 1:30 PM Michael Jolley) [id number] PROCIOUS MCTIME OF CARE (Use first blank if not applicable): TIME OF CARE: DischargeManagement: I personally spent less than 30 minutes involved in thedischarge management of this patient.SIGNATURE: Harmony Rodriguez MD PATIENT NAME: Rocio JacksonDATE: October 27, 2017 : 12:12 PM PAGER/CONTACT #: [phone] Normal [facility] Comp Metabolic Panelon 10-09 Alanine aminotransferase (ALT) 26 U/L Normal 5-50 [facility] Comment on above: Performed By: #### P T, PTT, AMYL, CMP, LIPA, PHOS ####[place] [phone]#### TRANSF ####[place] [phone] Albumin 3.1 g/dL Low 3.5-5.0 [facility] Comment on above: Performed By: #### P T, PTT, AMYL, CMP, LIPA, PHOS ####[place] [phone]#### TRANSF ####[place] [phone] Alkaline phosphatase (ALP) 101 U/L Normal 40-150 [facility] Comment on above: Performed By: #### P T, PTT, AMYL, CMP, LIPA, PHOS ####[place] [address]#### TRANSF ####[place] [address] Anion gap 13 mmol/L Normal 9-18 [facility] Comment on above: Performed By: #### P T, PTT, AMYL, CMP, LIPA, PHOS ####[place] [address]#### TRANSF ####[place] [address] Aspartate aminotransferase (AST) 20 U/L Normal 7-40 [facility] Comment on above: Performed By: #### P T, PTT, AMYL, CMP, LIPA, PHOS ####[place] [address]#### TRANSF ####[place] [address] Bilirubin (total) 0.2 mg/dL Normal 0.0-1.5 [facility] Comment on above: Performed By: #### P T, PTT, AMYL, CMP, LIPA, PHOS ####[place] [address]#### TRANSF ####[place] [phone] Calcium 8.6 mg/dL Normal 8.5-10.5 [facility] Comment on above: Performed By: #### P T, PTT, AMYL, CMP, LIPA, PHOS ####[place] [address]#### TRANSF ####[place] [phone] Chloride 101 mmol/L Normal 98-110 [facility] Comment on above: Performed By: #### P T, PTT, AMYL, CMP, LIPA, PHOS ####[place] [address]#### TRANSF ####[place] [address] CO2 24 mmol/L Normal 23-32 [facility] Comment on above: Performed By: #### P T, PTT, AMYL, CMP, LIPA, PHOS ####[place] [address]#### TRANSF ####[place] [phone] Creatinine 0.51 mg/dL Low 0.70-1.40 [facility] Comment on above: Performed By: #### P T, PTT, AMYL, CMP, LIPA, PHOS ####[place] [address]#### TRANSF ####[place] [address] eGFR (non-black) mL/min/{1.73_m2} Normal >60 [facility] Comment on above: Performed By: #### P T, PTT, AMYL, CMP, LIPA, PHOS ####[address]#### TRANSF ####[place] [address] Glucose mass conc 185 mg/dL High 65-100 [facility] Comment on above: Performed By: #### P T, PTT, AMYL, CMP, LIPA, PHOS ####[place] [address]#### TRANSF ####[place] [phone] Potassium molar conc 3.7 mmol/L Normal 3.5-5.0 [facility] Comment on above: Performed By: #### P T, PTT, AMYL, CMP, LIPA, PHOS ####[place] [address]#### TRANSF ####[place] [address] Protein 6.5 g/dL Normal 6.0-8.4 [facility] Comment on above: Performed By: #### P T, PTT, AMYL, CMP, LIPA, PHOS ####[place] [address]#### TRANSF ####[place] [address] Sodium 138 mmol/L Normal 135-146 [facility] Comment on above: Performed By: #### P T, PTT, AMYL, CMP, LIPA, PHOS ####[place] [address]#### TRANSF ####[place] [address] Urea nitrogen 20 mg/dL Normal 10-25 [facility] Comment on above: Performed By: #### P T, PTT, AMYL, CMP, LIPA, PHOS ####[place] [address]#### TRANSF ####[place] [address] NURSING PROGon 10-09-2017 NURSING PROG HNO ID: [id number] thor: Reggie (Rn) MOUSTAPHA Sawantervice: (none)Author Type: Registered NurseType: Nursing Progress NoteFiled: 10/09/2017 12:48 PMNote Text: Nursing Progress NotePatient Name: Rocio HayesN: [id number] Location: [place] [address]/[id number] ____Daily Note: Mr. Jackson up to chair most of shift thus far. Ambulated inhallway with use of walker and 1 staff. He is tolerating tube feed at40ml/hr with no nausea or vomiting. Patient also tolerating clear liquidswith increased intake today as compared to yesterday. Pain controlledwith scheduled Tylenol. Plan [facility] ([facility] today. Patient updated on plan to transfer to SNF and agreeable with plan. Calllight within reach. Will continue to monitor.This note was completed by: Reggie Sawant RN [facility] NURSING PROG HNO ID: [id number] thor: Renae Diaz (Rn) Siva, RNService: (none)Author Type: Registered NurseType: Nursing Progress NoteFiled: 10/09/2017 2:52 AMNote Text: Nursing Progress NotePatient Name: Rocio JacksonMRN: [id number] Location: [place] [address]/[id number] ____ 2130 (late entry) Patient heart rate 119, when listening to apicalnoticed irregular rhythm and rate of 96. Patient denied chest pain ordiscomfort or SOB. cco & president notified and telemetry ordered andapplied.2300 Patient seen by surgical services asst and no new orders received at thistime. [...] note was completed by: Renae Paniagua RN [facility] PLAN OF CAREon 10-09-2017 PLAN OF CARE HNO ID: [id number] thor: Miriam Britt (Cigarette Package Examiner)Service: (none)Author Type: TechnicianType: Plan of CareFiled: 10/12/2017 9:54 AMNote Text:DIABETES EDUCATOR BEDSIDE DELIVERY SURVEY1. Patient to use [facility] Bedside Delivery - N/A2. If fax, patient would like us to fax prescriptions to [facility] a. Pharmacy: b. Location: c. Phone:3. Insurance card on file - N/A4. Credit card for payment - N/A [facility] PROGRESSon 10-09-2017 PROGRESS HNO ID: [id number] thor: Michael Cedillo) AugustinService: General SurgeryAuthor Type: PhysicianType: Progress NotesFiled: 10/09/2017 10:59 AMNote Text:SURGICAL SERVICES PROGRESS NOTENAME: Rocio JacksonMRN: [id number]: 10/09/2017Time: 8:16 JUDIE DATE: 09/30/20179 Days Post-OpProcedure(s) [...] on POD 3 nml, [facility]. [facility]Patient did well overnight with no acute issues [...] (195 lb 12.3 oz) SpO2 96% BMI29.77 kg/l5Nwhubt/Output Summary (Last 24 hours) at 10/09/17 0952Last [...] 3.6 3.5Liver Function, Amylase, AND LipaseRecent Labs 10/09/1803941459PWNSM 6.5 6.7 6.6 7.3 < > 5.8*ALB 3.1* 3.3* 3.2* 3.4* < > 3.1*ALT 26 31 32 28 < > 46AST 20 25 30 23 < > 48*ALKPHOS 101 106 106 108 < > 91TBILI 0.2 0.2 0.2 0.2 < > 0.5LACT -- -- -- -- -- 2.3*< > = values in this interval not displayed.CoagsRecent Labs 9508/17/1807338205OOPW 25.9 24.9 -- -- 39.8* 31.6INR 1.2 1.1 1.0 2.0* 2.0* 1.5*Tasha Fishert, PGY-1 - General SurgeryPager [phone] [facility] THERAPY NTon 10-09-2017 THERAPY NT HNO ID: [id number] thor: Alicia Sinhaervice: Occupational TherapyAuthor Type: Occupational TherapistType: Therapy (PT/OT/Speech/Resp)Filed: 10/09/2017 3:06 PMNote Text:OCCUPATIONAL THERAPY MISSED VISITSERVICE DATE: 10/09/2017SERVICE TIME: 1400 to 1400ROOM: BK-[id number] Treatment. Patient not seen due to (being D/C this pm).SIGNATURE: ALISA Ramires PATIENT NAME: Rocio Sibley: October 09, 2017 : 3:06 PM PAGER/CONTACT #:[phone] [facility] THERAPY NT HNO ID: [id number] thor: Saima Miranda (Cota)ervice: Occupational TherapyAuthor Type: Occupational Therapy AssistantType: Therapy (PT/OT/Speech/Resp)Filed: 10/09/2017 10:11 AMNote Text: -Attestation signed by Jacqueline Arshad at 10/09/2017 12:31 PMI reviewed and agree with the documentation corresponding to this therapyvisit.SIGNATURE: Jacqueline Arshad OTR/LDATE: October 09, 2017TIME: 12:31 PM OC CUPATIONAL THERAPY MISSED VISITSERVICE DATE: 10/09/2017SERVICE TIME: 1009 to 1009ROOM: [id number] Treatment. Patient not seen due to Sleeping. Nursing aware(Reggie)SIGNATURE: TRACY Dumont PATIENT NAME: Rocio VizcarraTE: October 09, 2017 : 10:10 AM PAGER/CONTACT #:[phone] [facility] CASE MANAGEMon 10-08-2017 CASE MANAGEM HNO ID: [id number] thor: Clementina KenNew Lifecare Hospitals Of Pgh - Alle-KiskiLyric PezzuloService: Care ManagementAuthor Type: Social WorkerType: Care Mgt Progress NoteFiled: 10/08/2017 4:29 PMNote Text:MULTIDISCIPLINARY ROUNDSSERVICE DATE: 10/08/2017 ADMISSION DATE: 09/30/2017SERVICE TIME: 10:45 AM ANTICIPATED D/C DATE: 10/10/2017Problem List:ACTIVE PROBLEM LISTDuodenal ObstructionSevere Protein-Calorie Malnutrition (Hcc)Duodenal Cancer (Hcc)Attendees Present at Rounds:Marble Rubber: Jasbiramily: yPatient: Rocio Shaikh Nurse: Laura Discussed on Rounds:DietDischarge NeedsFamily ConcernsMobilityPlan of CareAnticipated Discharge Disposition:Half-Way FacilityLast Vitals: BP 153/85 Pulse 90 Temp (Src) 97.9 (Oral) Resp 16 Ht5' 7.992 (1.73m) Wt 195 lb 12.3 oz (88.8kg) SpO2 97% BMI 29.77kg/(m2).Pt SNF vs [place]. Most likely SNFNursing:DOCUMENTED BY: TRACI Hammer PATIENT NAME: Rocio JacksonDATE: October 08, 2017 : 4:27 PM CSN: [id number] [facility] CASE MANAGEM HNO ID: [id number] thor: Clementina Florez) Marirvice: Care ManagementAuthor Type: Social WorkerType: Care Mgt Progress NoteFiled: 10/08/2017 4:37 PMNote Text:CARE MANAGEMENT PROGRESS NOTESERVICE DATE: 10/08/2017SERVICE TIME: 1:16 PM LOS: 8 daysNeeds Prior to Discharge: Precertification;Accepting Facility;Other: SeeComment (Pt [facility] Pt [facility] not able to accept Pt AND feel Pt best suited for SNF. Familymet w Liaison from [facility] who is willing to accept although waitingon acceptance from 1st choice [place])CM phoned and left message inquiring on acceptance of Pt for intake -Denise Garcia.ADDENDUM: 1630: Per Paty at [facility] Pt Insurance is Out ofNetwork. CM met with Pt bedside. Pt sister present, CM discussedinsurance and Pt SNF choices. Per Pt he [facility] CM requested precert to begin.SIGNATURE: TRACI Hammer PATIENT NAME: Rocio TorresdonnyDATE: October 08, 2017 : 1:16 PM PAGER/CONTACT #: [phone] [facility] CASE MANAGEM HNO ID: [id number] thor: Clementina Holland (Lsw)ice: Care ManagementAuthor Type: Social WorkerType: Care Mgt [...] is present. Per Ptand sister they [facility] [place] ([place]) CM spoke w/alina Sarabia [phone] in admission whowill review Pt to determine acceptance. [facility] CM sent referrals.SIGNATURE: TRACI Hammer PATIENT NAME: Rociomarisa JacksonDATE: October 08, 2017 : 9:08 AM PAGER/CONTACT #: [phone] Normal [facility] CBC and Differentialon 10-08 Abs Baso <0.03 Normal <0.11 [facility] Comment on above: Performed By: #### P T, PTT, AMYL, CMP, LIPA, PHOS ####[place] [address]#### TRANSF ####[place] [address] Abs Jerome 0.38 k/uL Normal <0.87 [facility] Comment on above: Performed By: #### P T, PTT, AMYL, CMP, LIPA, PHOS ####[place] [address]#### TRANSF ####[place] [address] Abs Neut 4.15 k/uL Normal 1.45-7.50 [facility] Comment on above: Performed By: #### P T, PTT, AMYL, CMP, LIPA, PHOS ####[place] [address]#### TRANSF ####[place] [address] Basophils/100 WBC Auto (Bld) 0.3 % Normal [facility] Comment on above: Performed By: #### P T, PTT, AMYL, CMP, LIPA, PHOS ####[place] [address]#### TRANSF ####[place] [address] [address] [place] [address] DTYPE Auto Diff Normal [facility] Comment on above: Performed By: #### P T, PTT, AMYL, CMP, LIPA, PHOS ####[place] [address]#### TRANSF ####[place] [address] Eosinophils 0.07 10*3/uL Normal <0.46 [facility] Comment on above: Performed By: #### P T, PTT, AMYL, CMP, LIPA, PHOS ####[place] [address]#### TRANSF ####[place] [address] Eosinophils/100 leukocytes 1.1 % Normal [facility] Comment on above: Performed By: #### P T, PTT, AMYL, CMP, LIPA, PHOS ####[place] [address]#### TRANSF ####[place] [address] [address] [place] [address] Erythrocyte distribution width Auto Ratio (RBC) 16.8 % High 11.5-15.0 [facility] Comment on above: Performed By: #### P T, PTT, AMYL, CMP, LIPA, PHOS ####[place] [address]#### TRANSF ####[address] AvTiffany [place] [phone] Erythrocytes (RBC) 3.72 10*6/uL Low 4.20-6.00 [facility] Comment on above: Performed By: #### P T, PTT, AMYL, CMP, LIPA, PHOS ####[place] [address]#### TRANSF ####[place] [address] Hematocrit (HCT) 29.5 % Low 39.0-51.0 [facility] Comment on above: Performed By: #### P T, PTT, AMYL, CMP, LIPA, PHOS ####[place] [address]#### TRANSF ####[place] [address] Hemoglobin mass conc (Bld) 9.4 g/dL Low 13.0-17.0 [facility] Comment on above: Performed By: #### P T, PTT, AMYL, CMP, LIPA, PHOS ####[place] [address]#### TRANSF ####[place] [address] Lymphocytes 1.91 10*3/uL Normal 1.00-4.00 [facility] Comment on above: Performed By: #### P T, PTT, AMYL, CMP, LIPA, PHOS ####[place] [address]#### TRANSF ####[place] [address] Lymphocytes/100 leukocytes 29.2 % Normal [facility] Comment on above: Performed By: #### P T, PTT, AMYL, CMP, LIPA, PHOS ####[place] [address]#### TRANSF ####[place] [address] MCH 25.3 pG Low 26.0-34.0 [facility] Comment on above: Performed By: #### P T, PTT, AMYL, CMP, LIPA, PHOS ####[place] [address]#### TRANSF ####[place] [address] MCHC mass conc (RBC) 31.9 g/dL Normal 30.5-36.0 [facility] Comment on above: Performed By: #### P T, PTT, AMYL, CMP, LIPA, PHOS ####[place] [address]#### TRANSF ####[place] [address] MCV 79.3 fL Low 80.0-100.0 [facility] Comment on above: Performed By: #### P T, PTT, AMYL, CMP, LIPA, PHOS ####[place] [address]#### TRANSF ####[place] [address] Monocytes/100 leukocytes 5.8 % Normal [facility] Comment on above: Performed By: #### P T, PTT, AMYL, CMP, LIPA, PHOS ####[place] [address]#### TRANSF ####[place] [address] Neutrophils/100 WBC Auto (Bld) 63.6 % Normal [facility] Comment on above: Performed By: #### P T, PTT, AMYL, CMP, LIPA, PHOS ####[place] [address]#### TRANSF ####[place] [phone] Platelet mean volume (PMV) 9.3 fL Normal 9.0-12.7 [facility] Comment on above: Performed By: #### P T, PTT, AMYL, CMP, LIPA, PHOS ####[place] [address]#### TRANSF ####[place] [phone] Platelets 370 10*3/uL Normal 150-400 [facility] Comment on above: Performed By: #### P T, PTT, AMYL, CMP, LIPA, PHOS ####[place] [address]#### TRANSF ####[place] [phone] WBC (Leukocytes) 6.53 10*3/uL Normal 3.70-11.00 [facility] Comment on above: Performed By: #### P T, PTT, AMYL, CMP, LIPA, PHOS ####[place] [address]#### TRANSF ####[place] [phone] CONSULT PROGon 10-08-2017 CONSULT PROG HNO ID: [id number] thor: Damaris Rojasice: EndocrinologyAuthor Type: PhysicianType: Consult Progress NoteFiled: 10/09/2017 9:48 AMNote Text:ENDOCRINOLOGY PROGRESS NOTEPATIENT NAME: Rocio JacksonMRN: [id number] DATE: 10/08/2017SERVICE TIME: 5:27 PMREASON FOR CONSULT: [...] with pRBC on 10/02/2017 so obtaining a BjD6asnx will not be helpful. He is receiving [...] Date- ANGIOPLASTY HX 05/15/2011 2 stents s/p [place];[facility]- CHOLECYSTECTOMY 08/11/2017 [facility]- PICC LINE INSERT/CONSULT 08/16/2017No family history [...] PRN Yrn Cedillo)Gonzalo 5 mg at 10/07/17 9509anbzhj-gaupftyo-opbztrb 2 capsule cap(s) (CREON 24) 2 capsule ORAL TID wMEALS Flynn (Res) MD Jane 2 capsule at 10/08/17 0830phenol 1 Evans (CHLORASEPTIC) 1 Evans MUCOUS MEMBRANE (TOPICAL MOUTH ANDTHROAT) q 2 H PRN Kolby (Res) Kevin 1 Evans at 10/02/17 91913.9% NaCl 2-10 mL 2-10 mL INTRAVENOUS q [...] lb 12.3 oz) SpO2 97% BMI 29.77 kg/o6Jjushhx: Well appearing, sleeping, in no acute distress.Skin: [...] 172 (A) 21/06/2018 1:17 PM 199 (A) J2Tmlaprbcn Latest Ref Rng AND Units 10/07/2017 10/08/2017 [...] MDDATE: October 08, 2017TIME: 5:27 PM Normal [facility] Comp Metabolic Panelon 10-08 Alanine aminotransferase (ALT) 31 U/L Normal 5-50 [facility] Comment on above: Performed By: #### P T, PTT, AMYL, CMP, LIPA, PHOS ####[facility] [place], [place] [phone]#### TRANSF ####[facility] [address] [place], [place] [phone] Albumin 3.3 g/dL Low 3.5-5.0 [facility] Comment on above: Performed By: #### P T, PTT, AMYL, CMP, LIPA, PHOS ####[place] [address]#### TRANSF ####[place] [address] Alkaline phosphatase (ALP) 106 U/L Normal 40-150 [facility] Comment on above: Performed By: #### P T, PTT, AMYL, CMP, LIPA, PHOS ####[place] [address]#### TRANSF ####[place] [address] Anion gap 13 mmol/L Normal 9-18 [facility] Comment on above: Performed By: #### P T, PTT, AMYL, CMP, LIPA, PHOS ####[place] [address]#### TRANSF ####[place] [address] Aspartate aminotransferase (AST) 25 U/L Normal 7-40 [facility] Comment on above: Performed By: #### P T, PTT, AMYL, CMP, LIPA, PHOS ####[place] [address]#### TRANSF ####[place] [address] Bilirubin (total) 0.2 mg/dL Normal 0.0-1.5 [facility] Comment on above: Performed By: #### P T, PTT, AMYL, CMP, LIPA, PHOS ####[place] [address]#### TRANSF ####[place] [address] Calcium 8.8 mg/dL Normal 8.5-10.5 [facility] Comment on above: Performed By: #### P T, PTT, AMYL, CMP, LIPA, PHOS ####[place] [address]#### TRANSF ####[place] [address] Chloride 102 mmol/L Normal 98-110 [facility] Comment on above: Performed By: #### P T, PTT, AMYL, CMP, LIPA, PHOS ####[place] [address]#### TRANSF ####[place] [address] CO2 26 mmol/L Normal 23-32 [facility] Comment on above: Performed By: #### P T, PTT, AMYL, CMP, LIPA, PHOS ####[place] [address]#### TRANSF ####[place] [address] Creatinine 0.55 mg/dL Low 0.70-1.40 [facility] Comment on above: Performed By: #### P T, PTT, AMYL, CMP, LIPA, PHOS ####[place] [address]#### TRANSF ####[place] [address] eGFR (non-black) mL/min/{1.73_m2} Normal >60 [facility] Comment on above: Performed By: #### P T, PTT, AMYL, CMP, LIPA, PHOS ####[place] [address]#### TRANSF ####[place] [address] Glucose mass conc 152 mg/dL High 65-100 [facility] Comment on above: Performed By: #### P T, PTT, AMYL, CMP, LIPA, PHOS ####[place] [address]#### TRANSF ####[place] [address] Potassium molar conc 3.8 mmol/L Normal 3.5-5.0 [facility] Comment on above: Performed By: #### P T, PTT, AMYL, CMP, LIPA, PHOS ####[place] [address]#### TRANSF ####[place] [address] Protein 6.7 g/dL Normal 6.0-8.4 [facility] Comment on above: Performed By: #### P T, PTT, AMYL, CMP, LIPA, PHOS ####[place] [address]#### TRANSF ####[place] [address] Sodium 141 mmol/L Normal 135-146 [facility] Comment on above: Performed By: #### P T, PTT, AMYL, CMP, LIPA, PHOS ####[place] [address]#### TRANSF ####[place] [address] Urea nitrogen 18 mg/dL Normal 10-25 [facility] Comment on above: Performed By: #### P T, PTT, AMYL, CMP, LIPA, PHOS ####[place] [address]#### TRANSF ####[place] [address] NURSING PROGon 10-08-2017 NURSING PROG HNO ID: [id number] thor: Reggie (Rn) MOUSTAPHA Sawantervice: (none)Author Type: Registered NurseType: Nursing Progress NoteFiled: 10/08/2017 8:55 AMNote Text: Nursing Progress NotePatient Name: Rocio HayesN: [id number] Location: [address]17/[id number]-72 ____Daily Note: Mr. Jackson awake and alert [...] note was completed by: Reggie Sawant RN [facility] PROGRESSon 10-08-2017 PROGRESS HNO ID: [id number] thor: Salvador (Georges) ASHLEY Birminghamervice: General SurgeryAuthor Type: ResidentType: Progress NotesFiled: 10/08/2017 9:38 AMNote Text:SURGICAL SERVICES PROGRESS NOTENAME: Rocio JacksonMRN: [id number]: 10/08/2017Time: 8:16 JUDIE DATE: 09/30/20178 Days Post-OpProcedure(s) [...] on POD 3 nml, removed. [facility]Patient did well overnight with no acute issues [...] lb 12.3 oz) SpO2 97% BMI 29.77 kg/y5Usukhm/Output Summary (Last 24 hours) at 10/08/17 0936Last [...] 3.6 3.5Liver Function, Amylase, AND LipaseRecent Labs 42554409/30/1817TPROT 6.7 6.6 7.3 6.5 < > 5.8*ALB [...] 2.0* 1.5*Poonam Fisher, PGY-1 - General SurgeryPager [phone] [facility] ALLIED HEALTHon 10-07-2017 ALLIED HEALTH HNO ID: [id number] thor: Allegra Bruce) Lea Espitia: RadiologyAuthor Type: TechnicianType: Allied HealthFiled: 10/07/2017 12:43 PMNote Text: Radiology Service Progress NotePATIENT NAME: Rocio HayesN: [id number] OF SERVICE: October 07, 2017TIME: 12:42 PMPATIENT IDENTITY VERIFICATION COMPLETED USING TWO (2) METHODS: Patientconfirmed name verbally and ID band matches..PATIENT GENDER DATA: MalePATIENT RELEVANT IMPLANT DATA REVIEWED: Not ApplicableRADIOLOGY DEPARTMENT: General X-ray: Exam(s) Completed: Chest X-RayAbdomen X-Ray Abdomen Supine / AP ErectPERIPHERAL IV DATA: Not applicableSIGNED BY: Omkar Dinh RTApril 2017 12:42 PM [facility] CASE MANAGEMon 10-07-2017 CASE MANAGEM HNO ID: [id number] thor: Clementina Culver (Lsw)uloService: Care ManagementAuthor Type: [...] 07, 2017 : 12:32 PM PAGER/CONTACT #: [phone] Normal [facility] CBC and Differentialon 10-07 Abs Baso <0.03 Normal <0.11 [facility] Comment on above: Performed By: #### P T, PTT, AMYL, CMP, LIPA, PHOS ####[place] [address]#### TRANSF ####[facility] [place] [phone] Abs Jerome 0.49 k/uL Normal <0.87 [facility] Comment on above: Performed By: #### P T, PTT, AMYL, CMP, LIPA, PHOS ####[place] [phone]#### TRANSF ####[place] [address] [place] [phone] Abs Neut 4.36 k/uL Normal 1.45-7.50 [facility] Comment on above: Performed By: #### P T, PTT, AMYL, CMP, LIPA, PHOS ####[place] [address]#### TRANSF ####[address] [place] [address] Basophils/100 WBC Auto (Bld) 0.1 % Normal [facility] Comment on above: Performed By: #### P T, PTT, AMYL, CMP, LIPA, PHOS ####[place] [address]#### TRANSF ####[place] [address] DTYPE Auto Diff Normal [facility] Comment on above: Performed By: #### P T, PTT, AMYL, CMP, LIPA, PHOS ####[place] [address]#### TRANSF ####[place] [address] Eosinophils 0.04 10*3/uL Normal <0.46 [facility] Comment on above: Performed By: #### P T, PTT, AMYL, CMP, LIPA, PHOS ####[place] [address]#### TRANSF ####[place] [address] Eosinophils/100 leukocytes 0.6 % Normal [facility] Comment on above: Performed By: #### P T, PTT, AMYL, CMP, LIPA, PHOS ####[place] [address]#### TRANSF ####[address] [address] Erythrocyte distribution width Auto Ratio (RBC) 16.8 % High 11.5-15.0 [facility] Comment on above: Performed By: #### P T, PTT, AMYL, CMP, LIPA, PHOS ####[place] [address]#### TRANSF ####[place] [address] Erythrocytes (RBC) 3.55 10*6/uL Low 4.20-6.00 [facility] Comment on above: Performed By: #### P T, PTT, AMYL, CMP, LIPA, PHOS ####[place] [address]#### TRANSF ####[place] [address] Hematocrit (HCT) 28.9 % Low 39.0-51.0 [facility] Comment on above: Performed By: #### P T, PTT, AMYL, CMP, LIPA, PHOS ####[place] [address]#### TRANSF ####[place] [address] Hemoglobin mass conc (Bld) 8.9 g/dL Low 13.0-17.0 [facility] Comment on above: Performed By: #### P T, PTT, AMYL, CMP, LIPA, PHOS ####[place] [address]#### TRANSF ####[place] [address] Lymphocytes 1.89 10*3/uL Normal 1.00-4.00 [facility] Comment on above: Performed By: #### P T, PTT, AMYL, CMP, LIPA, PHOS ####[place] [address]#### TRANSF ####[place] [address] Lymphocytes/100 leukocytes 27.8 % Normal [facility] Comment on above: Performed By: #### P T, PTT, AMYL, CMP, LIPA, PHOS ####[place] [address]#### TRANSF ####[place] [address] MCH 25.1 pG Low 26.0-34.0 [facility] Comment on above: Performed By: #### P T, PTT, AMYL, CMP, LIPA, PHOS ####[place] [address]#### TRANSF ####[place] [address] MCHC mass conc (RBC) 30.8 g/dL Normal 30.5-36.0 [facility] Comment on above: Performed By: #### P T, PTT, AMYL, CMP, LIPA, PHOS ####[place] [address]#### TRANSF ####[place] [address] MCV 81.4 fL Normal 80.0-100.0 [facility] Comment on above: Performed By: #### P T, PTT, AMYL, CMP, LIPA, PHOS ####[place] [address]#### TRANSF ####[place] [address] Monocytes/100 leukocytes 7.2 % Normal [facility] Comment on above: Performed By: #### P T, PTT, AMYL, CMP, LIPA, PHOS ####[place] [address]#### TRANSF ####[place] [phone] Neutrophils/100 WBC Auto (Bld) 64.3 % Normal [facility] Comment on above: Performed By: #### P T, PTT, AMYL, CMP, LIPA, PHOS ####[place] [address]#### TRANSF ####[place] [address] Platelet mean volume (PMV) 9.2 fL Normal 9.0-12.7 [facility] Comment on above: Performed By: #### P T, PTT, AMYL, CMP, LIPA, PHOS ####[address]#### TRANSF ####[place] [address] Platelets 329 10*3/uL Normal 150-400 [facility] Comment on above: Performed By: #### P T, PTT, AMYL, CMP, LIPA, PHOS ####[address]#### TRANSF ####[place] [address] WBC (Leukocytes) 6.79 10*3/uL Normal 3.70-11.00 [facility] Comment on above: Performed By: #### P T, PTT, AMYL, CMP, LIPA, PHOS ####[place] [address]#### TRANSF ####[place] [address] Comp Metabolic Panelon 10-07 Alanine aminotransferase (ALT) 32 U/L Normal 5-50 [facility] Comment on above: Performed By: #### P T, PTT, AMYL, CMP, LIPA, PHOS ####[address]#### TRANSF ####[place] [address] Albumin 3.2 g/dL Low 3.5-5.0 [facility] Comment on above: Performed By: #### P T, PTT, AMYL, CMP, LIPA, PHOS ####[place] [address]#### TRANSF ####[place] [address] Alkaline phosphatase (ALP) 106 U/L Normal 40-150 [facility] Comment on above: Performed By: #### P T, PTT, AMYL, CMP, LIPA, PHOS ####[place] [address]#### TRANSF ####[place] [address] Anion gap 11 mmol/L Normal 9-18 [facility] Comment on above: Performed By: #### P T, PTT, AMYL, CMP, LIPA, PHOS ####[place] [address]#### TRANSF ####[place] [address] Aspartate aminotransferase (AST) 30 U/L Normal 7-40 [facility] Comment on above: Performed By: #### P T, PTT, AMYL, CMP, LIPA, PHOS ####[place] [address]#### TRANSF ####[place] [phone] Bilirubin (total) 0.2 mg/dL Normal 0.0-1.5 [facility] Comment on above: Performed By: #### P T, PTT, AMYL, CMP, LIPA, PHOS ####[place] [phone]#### TRANSF ####[place] [address] Calcium 8.8 mg/dL Normal 8.5-10.5 [facility] Comment on above: Performed By: #### P T, PTT, AMYL, CMP, LIPA, PHOS ####[place] [address]#### TRANSF ####[place] [address] Chloride 104 mmol/L Normal 98-110 [facility] Comment on above: Performed By: #### P T, PTT, AMYL, CMP, LIPA, PHOS ####[place] [address]#### TRANSF ####[place] [address] CO2 27 mmol/L Normal 23-32 [facility] Comment on above: Performed By: #### P T, PTT, AMYL, CMP, LIPA, PHOS ####[place] [address]#### TRANSF ####[place] [address] Creatinine 0.60 mg/dL Low 0.70-1.40 [facility] Comment on above: Performed By: #### P T, PTT, AMYL, CMP, LIPA, PHOS ####[place] [address]#### TRANSF ####[place] [address] eGFR (non-black) mL/min/{1.73_m2} Normal >60 [facility] Comment on above: Performed By: #### P T, PTT, AMYL, CMP, LIPA, PHOS ####[place] [address]#### TRANSF ####[place] [address] Glucose mass conc 175 mg/dL High 65-100 [facility] Comment on above: Performed By: #### P T, PTT, AMYL, CMP, LIPA, PHOS ####[place] [address]#### TRANSF ####[place] [address] Potassium molar conc 4.1 mmol/L Normal 3.5-5.0 [facility] Comment on above: Performed By: #### P T, PTT, AMYL, CMP, LIPA, PHOS ####[place] [address]#### TRANSF ####[place] [address] Protein 6.6 g/dL Normal 6.0-8.4 [facility] Comment on above: Performed By: #### P T, PTT, AMYL, CMP, LIPA, PHOS ####[place] [address]#### TRANSF ####[place] [address] Sodium 142 mmol/L Normal 135-146 [facility] Comment on above: Performed By: #### P T, PTT, AMYL, CMP, LIPA, PHOS ####[place] [address]#### TRANSF ####[place] [address] Urea nitrogen 20 mg/dL Normal 10-25 [facility] Comment on above: Performed By: #### P T, PTT, AMYL, CMP, LIPA, PHOS ####[place] [address]#### TRANSF ####[address] Magnesiumon 10-07-2017 Magnesium 2.0 mg/dL Normal 1.7-2.6 [facility] Comment on above: Performed By: #### P T, PTT, AMYL, CMP, LIPA, PHOS ####[place] [address]#### TRANSF ####[address] NURSING PROGon 10-07-2017 NURSING PROG HNO ID: [id number] thor: Kevin KenRn) Shanell, RNService: (none)Author Type: Registered NurseType: Nursing Progress NoteFiled: 10/07/2017 9:41 PMNote Text: Nursing Progress NotePatient Name: Rocio TorresBryannaN: [id number] Location: [place] [address]/[id number] ____Daily Note:Pt medicated per AUG. Pt AANDO x3. Pt with minimal pain- Administeredscheduled Tyl per orders. No SOB or headache. IV capped per orders. RUQdrain clamped per orders. Corpak with tube feed infusing per orders.Incision to abdomen- ADELA- C,D,I. No further needs. Call werner within reach.This note was completed by: KEVIN WALKER RN [facility] NURSING PROG HNO ID: [id number] thor: Saima KenRn) Debra, RNService: (none)Author Type: Registered NurseType: Nursing Progress NoteFiled: 10/07/2017 6:57 PMNote Text: Nursing Progress NotePatient Name: Rocio AbigailN: [id number] Location: [place] [address]/WS-[id number]-91 ____Daily Note:Pt resting in the bed and [...] was completed by: Saima Richardson RN Normal [facility] NURSING PROG HNO ID: [id number] thor: Kevin (Rn) MOUSTAPHA Walkerervice: (none)Author Type: Registered NurseType: Nursing Progress NoteFiled: 10/07/2017 1:21 AMNote Text: Nursing Progress NotePatient Name: Rocio JacksonMRN: [id number] Location: [place] [address]/YO-[id number]-75 ____Daily Note:2330- Took over care for pt. Pt assessed. Pt medicated per AUG. Pt AANDO x3.Pt with minimal pain- Administered scheduled Tyl per orders. No SOB orheadache. IV capped per orders. RUQ drain clamped per orders. Corpak withtube feed infusing per orders. Incision to abdomen- LINUX ARCHITECT- C,D,I. No furtherneeds. Call werner within reach.This note was completed by: KEVIN WALKER RN [facility] PLAN OF CAREon 10-07-2017 PLAN OF CARE HNO ID: [id number] thor: aMcie Crzu (Pharmacist)Service: PharmacyAuthor Type: PharmacistType: Plan of CareFiled: 10/07/2017 2:09 PMNote Text:MEDICATION HISTORY AND MEDICATION RECONCILIATIONPatient Name:Destiney JacksonMRN: [id number]: 1955Source of history:Family: Reliability of source: Appears reliable,clearly identified: Medication name, Medication dose, Medication route,Medication frequency and IndicationsMedication Nonadherence Identified: No barriers notedThe above information represents the best possible medication history: YesReconciliation completed? 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 09/29/2017 at 0900YePadmini Cruz, PharmacistApril 2017 2:09 PM [facility] PROGRESSon 10-07-2017 PROGRESS HNO ID: [id number] thor: Harmony (Fadi Villasenor: General SurgeryAuthor Type: ResidentType: Progress NotesFiled: 10/07/2017 8:27 AMNote Text:SURGICAL SERVICES PROGRESS NOTENAME: Rocio JacksonMRN: [id number]: 10/07/2017Time: 8:16 JUDIE DATE: 09/30/20177 Days Post-OpProcedure(s) [...] on POD 3 nml, removed. [facility]red [facility]Patient did well overnight with no acute issues [...] ac/hsfor DGE- IPCs, SQH- Continue care on [facility]; will begin disposition planning todayPHYSICAL EXAM:GENERAL: AOx3, NADLUNGS: Nonlabored breathingABDOMEN: Soft, non-distendedSKIN: Warm, well perfusedBP 147/79 Pulse 63 Temp 37.3 ?C (99.1 ?F) (Oral) Resp 16 Ht 172.7cm (5' 7.99 ) Wt 88.8 kg (195 lb 12.3 oz) SpO2 97% BMI 29.77 kg/m2Date 10/06/17 0700 - 10/07/17 0659 10/07/17 07 - 10/08/17 0659Shift 8807-2689 3467-6379 6350-4052 24 Hour Total 6659-1284 6484-03192296-2145 24 Hour TotalINTAKE PO 956 956 Tube Feed Intake (GI Feed/Drain 09/30/17 Small Bore Feeding Right Naris10 Fr) 956 956 Irrigants 5 5 100 110 Irrigant/Flush Amount In (Drain/Tube 08/27/17 Admission to HospitalRight Upper Quadrant Abdomen Drain #3) 5 5 10 Irrigant/Flush Amount In (GI Feed/Drain 09/30/17 Small Bore FeedingRight Naris 10 Fr) 100 100 Shift Total 5 5 1056 1066OUTPUT Urine 400 225 847 9742 Void (ml) 400 637 466 7640 Emesis 150 150 Emesis (ml) 150 150 [...] 10/07/2017NURY Mejia II general surgery 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-greenPager [phone] - Personal [facility] PT EDon 10-07-2017 PT ED HNO ID: [id number] thor: Macie Cruz (Pharmacist)Service: PharmacyAuthor Type: PharmacistType: Patient EducationFiled: 10/07/2017 2:13 PMNote Text:Clinical Pharmacy ServicesHigh Risk: Daily Medication AssessmentPatient Name: Rocio HayesN: [id number] Date: 09/30/2017Service Date and Time: 10/07/2017 2:12 PMNew MedicationsThe following medications have been started since last pharmacy review:naloxone, oxycodone, chloraceptic, scopolamineMedication education has been completed: YesSignature: Macie Cruz PharmacistFairview: [phone]: [phone] [facility] PT ED HNO ID: [id number] thor: Macie Cruz (Pharmacist)Service: PharmacyAuthor Type: PharmacistType: Patient EducationFiled: 10/07/2017 2:12 PMNote Text:Clinical Pharmacy ServicesHigh Risk: Daily Medication AssessmentPatient Name: Rocio HayesN: [id number] Date: 09/30/2017Service Date and Time: 10/07/2017 2:11 PMNew MedicationsThe following medications have been started since last pharmacy review:lantus, humalog, creon, magnesium, metoclopramideMedication education has been completed: YesSignature: Macie Cruz PharmacistFairview: [phone]: [phone] [facility] PT ED HNO ID: [id number] thor: Macie Cruz (Pharmacist)Service: PharmacyAuthor Type: PharmacistType: Patient EducationFiled: 10/07/2017 2:11 PMNote Text:Clinical Pharmacy ServicesHigh Risk: Daily Medication AssessmentPatient Name: Rocio Boudreaux: [id number] Date: 09/30/2017Service Date and Time: 10/07/2017 2:10 PMNew MedicationsThe following medications have been started since last pharmacy review:dextrose, glucagon, erythromycin, fentanyl, heparinMedication education has been completed: YesSignature: Macie Anthony, PharmacistFairview: [phone]: [phone] Normal [facility] Phosphoruson 10-07-2017 Phosphate 3.0 mg/dL Normal 2.5-4.5 [facility] Comment on above: Performed By: #### P T, PTT, AMYL, CMP, LIPA, PHOS ####[facility] [place], [place] [phone]#### TRANSF ####[facility] [address] [place], [place] [phone] THERAPY NTon 10-07-2017 THERAPY NT HNO ID: [id number] thor: Adela (Joe) Carlin: Physical TherapyAuthor Type: Physical Therapy AssistantType: Therapy (PT/OT/Speech/Resp)Filed: 10/07/2017 11:18 AMNote Text: -Attestation signed by Tonia Schmitz at 10/07/2017 12:03 PMI reviewed and agree with the documentation corresponding to this therapyvisit.SIGNATURE: Tonia Schmitz, PTDATE: October 07, 2017TIME: 12:03 PM Ph ysical Therapy TreatmentSERVICE DATE: 10/07/2017SERVICE TIME: 1000 to 1025ROOM: [id number]/p Debra procedureRecommended Discharge Disposition: Home PTRecommended Discharge Disposition Comments: (pt to return [facility] )Justification For Post Acute Needs: Willing toparticipate;Motivated;Destinee [...] sister present and [place] PT follow up. Pt [...] l symptoms and signs-otherInterventions Provided: Therapeutic Exercise (90703);Gait Training (20938)Therapeutic Exercise (46093) Treatment Minutes: 101 unitSkilled Intervention(s): Instruction in therapeutic exercise in sittingposition for B LE strengtheningVerbal and tactile cuing provided for performance and pace.Gait Training (91500) Treatment Minutes: 151 unitSkilled Intervention(s): Instruction in [...] mobility assessmentRelevant Past Medical History: HTN, DM, [place], richelle 08/11/17, ARF, refer tochart for full [...] has assist with all IADLs. Works in [employer]OBJECTIVE:Mini Cog Score: 1 (10/02/17 0820)CURRENT [...] 07, 2017 : 11:15 AM PAGER/CONTACT #: [phone] [facility] XR ABD 2V SUPINE W UPR/DECUB [...] MACK MD on Oct 07 2017 1:03PM [id number] [facility] XR CHEST 1V FRONTALon 2017 XR [...] silhouette: Normal cardiomediastinal silhouette.Other: .IMPRESSION:No acute radiographic abnormality.Ditch Cleaner : PSCB Transcribe Date/Time: Oct 07 2017 12:50PDictated by : RENATE MACK MDThimilly examination was interpreted and the report reviewed and electronically signed by: RENATE MACK MD on Oct 07 2017 1:02PM [id number] [facility] ALLIED HEALTHon 10-06-2017 ALLIED HEALTH HNO ID: [id number] thor: Huan Santoyo (Rt)Service: RadiologyAuthor Type: TechnicianType: Allied HealthFiled: 10/06/2017 6:41 AMNote Text: Radiology Service Progress NotePATIENT NAME: Rocio JacksonMRN: [id number] OF SERVICE: October 06, 2017TIME: 6:34 AMPATIENT IDENTITY VERIFICATION COMPLETED USING TWO (2) METHODS: Patientconfirmed name verbally and ID band matches..PATIENT GENDER DATA: MalePATIENT RELEVANT IMPLANT DATA REVIEWED: Not ApplicableRADIOLOGY DEPARTMENT: General X-ray: Exam(s) Completed: Abdomen X-RayAbdomenPERIPHERAL IV DATA: Not applicableSIGNED BY: Quique Santoyo 2017 6:41 AM [facility] CASE MANAGEMon 10-06-2017 CASE MANAGEM HNO ID: [id number] thor: Norberto Kramer (Noemi) PalumboService: Care ManagementAuthor Type: Social WorkerType: Care Mgt Progress NoteFiled: 10/06/2017 12:29 PMNote Text:MULTIDISCIPLINARY ROUNDSSERVICE DATE: 10/06/2017 ADMISSION DATE: 09/30/2017SERVICE TIME: 12:27 PM ANTICIPATED D/C DATE: 10/07/2017Problem List:ACTIVE PROBLEM LISTDuodenal ObstructionSevere Protein-Calorie Malnutrition (Hcc)Duodenal Cancer (Hcc)Attendees Present at Rounds:Marble Rubber:Nurse Washer Off/Machine Umbrella Tipper Nurse Washer Off:Television Presenter:Staff Nurse:Needs Discussed on Rounds:Discharge NeedsAnticipated Discharge Disposition:Home with Home Health CareLast Vitals: BP 132/80 Pulse 79 Temp (Src) 98.7 (Oral) Resp 16 Ht5' 7.992 (1.73m) Wt 195 lb 12.3 oz (88.8kg) SpO2 96% BMI 29.77kg/(m2).Pt plans on going to his sister's house at d/c. [facility] PTAand would like them again at d/c. [...] October 06, 2017 : 12:27 PM CSN: [id number] Normal [facility] CBC and Differentialon 10-06 Abs Baso <0.03 Normal <0.11 [facility] Comment on above: Performed By: #### P T, PTT, AMYL, CMP, LIPA, PHOS ####[place] [address]#### TRANSF ####[place] [address] Abs Jerome 0.46 k/uL Normal <0.87 [facility] Comment on above: Performed By: #### P T, PTT, AMYL, CMP, LIPA, PHOS ####[place] [address]#### TRANSF ####[place] [address]184[address] Abs Neut 4.56 k/uL Normal 1.45-7.50 [facility] Comment on above: Performed By: #### P T, PTT, AMYL, CMP, LIPA, PHOS ####[address]#### TRANSF ####[place] [address] Basophils/100 WBC Auto (Bld) 0.1 % Normal [facility] Comment on above: Performed By: #### P T, PTT, AMYL, CMP, LIPA, PHOS ####[place] [phone]#### TRANSF ####[place] [address] DTYPE Auto Diff Normal [facility] Comment on above: Performed By: #### P T, PTT, AMYL, CMP, LIPA, PHOS ####[place] [address]#### TRANSF ####[place] [address] Eosinophils 0.03 10*3/uL Normal <0.46 [facility] Comment on above: Performed By: #### P T, PTT, AMYL, CMP, LIPA, PHOS ####[place] [address]#### TRANSF ####[place] [phone] Eosinophils/100 leukocytes 0.4 % Normal [facility] Comment on above: Performed By: #### P T, PTT, AMYL, CMP, LIPA, PHOS ####[place] [address]#### TRANSF ####[place] [address] Erythrocyte distribution width Auto Ratio (RBC) 16.5 % High 11.5-15.0 [facility] Comment on above: Performed By: #### P T, PTT, AMYL, CMP, LIPA, PHOS ####[place] [address]#### TRANSF ####[place] [phone] Erythrocytes (RBC) 3.91 10*6/uL Low 4.20-6.00 [facility] Comment on above: Performed By: #### P T, PTT, AMYL, CMP, LIPA, PHOS ####[place] [address]#### TRANSF ####[place] [address] Hematocrit (HCT) 31.3 % Low 39.0-51.0 [facility] Comment on above: Performed By: #### P T, PTT, AMYL, CMP, LIPA, PHOS ####[place] [address]#### TRANSF ####[place] [address] Hemoglobin mass conc (Bld) 10.0 g/dL Low 13.0-17.0 [facility] Comment on above: Performed By: #### P T, PTT, AMYL, CMP, LIPA, PHOS ####[place] [address]#### TRANSF ####[place] [address]184[address] Lymphocytes 1.97 10*3/uL Normal 1.00-4.00 [facility] Comment on above: Performed By: #### P T, PTT, AMYL, CMP, LIPA, PHOS ####[place] [address]#### TRANSF ####[place] [address]184[address] Lymphocytes/100 leukocytes 28.0 % Normal [facility] Comment on above: Performed By: #### P T, PTT, AMYL, CMP, LIPA, PHOS ####[place] [address]#### TRANSF ####[place] [address] MCH 25.6 pG Low 26.0-34.0 [facility] Comment on above: Performed By: #### P T, PTT, AMYL, CMP, LIPA, PHOS ####[place] [address]#### TRANSF ####[place] [address]184[address] MCHC mass conc (RBC) 31.9 g/dL Normal 30.5-36.0 [facility] Comment on above: Performed By: #### P T, PTT, AMYL, CMP, LIPA, PHOS ####[place] [address]#### TRANSF ####[place] [address] MCV 80.1 fL Normal 80.0-100.0 [facility] Comment on above: Performed By: #### P T, PTT, AMYL, CMP, LIPA, PHOS ####[place] [address]#### TRANSF ####[place] [address] Monocytes/100 leukocytes 6.5 % Normal [facility] Comment on above: Performed By: #### P T, PTT, AMYL, CMP, LIPA, PHOS ####[place] [address]#### TRANSF ####[place] [address] Neutrophils/100 WBC Auto (Bld) 65.0 % Normal [facility] Comment on above: Performed By: #### P T, PTT, AMYL, CMP, LIPA, PHOS ####[place] [address]#### TRANSF ####[place] [address] Platelet mean volume (PMV) 9.2 fL Normal 9.0-12.7 [facility] Comment on above: Performed By: #### P T, PTT, AMYL, CMP, LIPA, PHOS ####[place] [address]206[address]#### TRANSF ####[address] [phone] Platelets 358 10*3/uL Normal 150-400 [facility] Comment on above: Performed By: #### P T, PTT, AMYL, CMP, LIPA, PHOS ####[place] [address]206[address]#### TRANSF ####[address] [phone] WBC (Leukocytes) 7.03 10*3/uL Normal 3.70-11.00 [facility] Comment on above: Performed By: #### P T, PTT, AMYL, CMP, LIPA, PHOS ####[place] [address]#### TRANSF ####[address] [phone] CONSULT PROGon 10-06-2017 CONSULT PROG HNO ID: [id number] thor: Damaris Formanervice: EndocrinologyAuthor Type: PhysicianType: Consult Progress NoteFiled: 10/06/2017 5:16 PMNote Text:ENDOCRINOLOGY PROGRESS NOTEPATIENT NAME: Rocio JacksonMRN: [id number] DATE: 10/06/2017SERVICE TIME: 5:07 PMREASON FOR CONSULT: [...] with pRBC on 10/02/2017 so obtaining a CjU5alvx will not be helpful. Low dose Lantus was started yesterday. Bloodglucose in the 200 mg/dL range today. Patient is sleeping when I visithim today with family by bedside.PAST MEDICAL HISTORYDiagnosis Date- Bleeding ulcer 11/15/2016 required 5 blood transfusions- Diabetes mellitus (HCC) 2016- Glaucoma- Hypertension- Myocardial infarction (HCC) 05/15/2011PAST SURGICAL HISTORYProcedure Laterality Date- ANGIOPLASTY HX 05/15/2011 2 stents s/p [place];[facility]- CHOLECYSTECTOMY 08/11/2017 [facility]- PICC LINE INSERT/CONSULT 08/16/2017No family history [...] PRN Yrn Cedillo)Gonzalo 5 mg at 10/05/17 8935paprww-kxucockq-beayizz 2 capsule cap(s) (CREON 24) 2 capsule ORAL TID Tucker Pruett (Res) MD Jane 2 capsule at 10/04/17 1740phenol 1 Evans (CHLORASEPTIC) 1 Evans MUCOUS MEMBRANE (TOPICAL MOUTH ANDTHROAT) q 2 H PRN Kolby (Res) Kevin 1 Evans at 10/02/17 46960.9% NaCl 2-10 mL 2-10 mL INTRAVENOUS q 12 H Mundo (Res)(Hist) Eqxulwz71 mL at 10/06/17 0842naloxone 0.2 mg injection [...] lb 12.3 oz) SpO2 96% BMI 29.77 kg/a7Xknfawc: Well appearing, sleeping, in no acute distress.Skin: [...] 212 (A) 21/04/2018 12:12 PM 237 (A) [id number] Latest Ref Rng AND Units 10/06/2017 5:51 [...] MDDATE: October 06, 2017TIME: 5:07 PM Normal [facility] Comp Metabolic Panelon 10-06 Alanine aminotransferase (ALT) 28 U/L Normal 5-50 [facility] Comment on above: Performed By: #### P T, PTT, AMYL, CMP, LIPA, PHOS ####[place] [address]#### TRANSF ####[place] [address] Albumin 3.4 g/dL Low 3.5-5.0 [facility] Comment on above: Performed By: #### P T, PTT, AMYL, CMP, LIPA, PHOS ####[place] [address]#### TRANSF ####[place] [address] Alkaline phosphatase (ALP) 108 U/L Normal 40-150 [facility] Comment on above: Performed By: #### P T, PTT, AMYL, CMP, LIPA, PHOS ####[place] [address]#### TRANSF ####[place] [address] Anion gap 16 mmol/L Normal 9-18 [facility] Comment on above: Performed By: #### P T, PTT, AMYL, CMP, LIPA, PHOS ####[place] [address]#### TRANSF ####[place] [address] Aspartate aminotransferase (AST) 23 U/L Normal 7-40 [facility] Comment on above: Performed By: #### P T, PTT, AMYL, CMP, LIPA, PHOS ####[place] [address]#### TRANSF ####[place] [address] Bilirubin (total) 0.2 mg/dL Normal 0.0-1.5 [facility] Comment on above: Performed By: #### P T, PTT, AMYL, CMP, LIPA, PHOS ####[place] [address]#### TRANSF ####[place] [address] Calcium 9.2 mg/dL Normal 8.5-10.5 [facility] Comment on above: Performed By: #### P T, PTT, AMYL, CMP, LIPA, PHOS ####[place] [address]#### TRANSF ####[place] [address] Chloride 103 mmol/L Normal 98-110 [facility] Comment on above: Performed By: #### P T, PTT, AMYL, CMP, LIPA, PHOS ####[place] [address]#### TRANSF ####[place] [address] CO2 24 mmol/L Normal 23-32 [facility] Comment on above: Performed By: #### P T, PTT, AMYL, CMP, LIPA, PHOS ####[place] [address]#### TRANSF ####[place] [address] Creatinine 0.54 mg/dL Low 0.70-1.40 [facility] Comment on above: Performed By: #### P T, PTT, AMYL, CMP, LIPA, PHOS ####[place] [address]#### TRANSF ####[place] [address] eGFR (non-black) mL/min/{1.73_m2} Normal >60 [facility] Comment on above: Performed By: #### P T, PTT, AMYL, CMP, LIPA, PHOS ####[place] [address]#### TRANSF ####[place] [address] Glucose mass conc 208 mg/dL High 65-100 [facility] Comment on above: Performed By: #### P T, PTT, AMYL, CMP, LIPA, PHOS ####[place] [address]#### TRANSF ####[place] [address] Potassium molar conc 4.3 mmol/L Normal 3.5-5.0 [facility] Comment on above: Performed By: #### P T, PTT, AMYL, CMP, LIPA, PHOS ####[place] [address]#### TRANSF ####[place] [address] Protein 7.3 g/dL Normal 6.0-8.4 [facility] Comment on above: Performed By: #### P T, PTT, AMYL, CMP, LIPA, PHOS ####[place] [address]#### TRANSF ####[place] [address] Sodium 143 mmol/L Normal 135-146 [facility] Comment on above: Performed By: #### P T, PTT, AMYL, CMP, LIPA, PHOS ####[place] [address]#### TRANSF ####[place] [address] Urea nitrogen 16 mg/dL Normal 10-25 [facility] Comment on above: Performed By: #### P T, PTT, AMYL, CMP, LIPA, PHOS ####[place] [address]#### TRANSF ####[place] [address] Magnesiumon 10-06-2017 Magnesium 2.0 mg/dL Normal 1.7-2.6 [facility] Comment on above: Performed By: #### P T, PTT, AMYL, CMP, LIPA, PHOS ####[place] [address]#### TRANSF ####[place] [phone] NURSING PROGon 10-06-2017 NURSING PROG HNO ID: [id number] thor: Pramod (Rn) MOUSTAPHA Mckennaervice: (none)Author Type: Registered NurseType: Nursing Progress NoteFiled: 10/06/2017 6:57 PMNote Text: Nursing Progress NotePatient Name: Rocio JacksonMRN: [id number] Location: [place] [address]/KG-VP1O-27 ____Daily Note:10/06/17 0800 (late entry)- Patient is [...] was completed by: Pramod Mckenna RN Normal [facility] NURSING PROG HNO ID: [id number] thor: Jennifer Humphries (Rn) MOUSTAPHA Websterervice: (none)Author Type: Registered NurseType: Nursing Progress NoteFiled: 10/06/2017 6:15 AMNote Text: Nursing Progress NotePatient Name: Rocio JacksonMRN: [id number] Location: [place] [address]/YC-[id number]-50 ____ Text page sent to surgical services asst to notify again that pt had [id number] emesis of bile (no tube feed color in any emesis tonight).This note was completed by: Jennifer Webster RN [facility] NURSING PROG HNO ID: [id number] thor: Jennifer Humphries (Rn) Eleanor, RNService: (none)Author Type: Registered NurseType: Nursing Progress NoteFiled: 10/06/2017 3:17 AMNote Text: Nursing Progress NotePatient Name: Rocio JacksonMRN: [id number] Location: [place] [address]/FO-OM4P-[id number] ____ Pt with two episodes of emesis [...] note was completed by: Jennifer Webster RN [facility] NUTRITIONon 10-06-2017 NUTRITION HNO ID: [id number] thor: Alise Segura) BlayneaService: Nutrition TherapyAuthor Type: [...] 81 kgResting Metabolic Rate: 1599Estimated kilocalorie needs: 1330-5406 kilocalories determined by 20-25kcal/kgEstimated protein needs: 105-138 grams determined by 1.3-1.7 g/kg DosingweightEstimated fluid needs: 8478-8301 milliliters based on 1 mL per kcalNUTRITION [...] lb 12.3 oz) SpO2 96% BMI 29.77 kg/x0Nzdeqw Labs 069412YONY 208*BUN 16CREAT 0.54*NA 143K 4.3CHLOR 103CO2 24ALB [...] (ROXICODONE) 5 mg ORAL q 4 H ECIvqniua-cdgrfgkf-xdokubi 2 capsule cap(s) (CREON 24) 2 capsule ORAL TID wMEALSphenol 1 Evans (CHLORASEPTIC) 1 Evans MUCOUS MEMBRANE (TOPICAL MOUTH ANDTHROAT) q 2 [...] 10/03/17 0659 10/03/17 0700 - 10/04/17 0659 10/04/385758 - 10/05/17 0659 10/05/17 0700 - 10/06/17 [...] days:6MNT Billing Type: Re-assess/15 min 4 unitsSIGNATURE: lAise Lopez RD, LD PATIENT NAME: Rocio JacksonDATE: October 06, 2017 : 9:36 AM PAGER: For further assistance and weekends please page theGroup Pager -[phone] [facility] PROGRESSon 10-06-2017 PROGRESS HNO ID: [id number] thor: Michael Cedillo) AugustinService: General SurgeryAuthor Type: PhysicianType: Progress NotesFiled: 10/06/2017 6:29 PMNote Text:SURGICAL SERVICES PROGRESS NOTENAME: Rocio JacksonMRN: [id number]: 10/06/2017Time: 10:09 JUDIE DATE: 09/30/20175 Days Post-OpProcedure(s) [...] on POD 3 nml, removed. Transferred to [facility]?Large volume of emesis past 24 hours that [...] ac/hsfor DGE- IPCs, SQH- Continue care on [facility]; will begin disposition planning todaySubjective:AFVSSBilious emesis overnight (2L past 24 hours)No evidence of TF in emesis per nursingBM x4 recordedPHYSICAL EXAM:GENERAL: no acute distressABDOMEN: soft, nontender, mildly distended. Incision c/d/i. [place] drainingyellow-red urine.BP 147/86 Pulse 90 Temp 37.1 ?C (98.7 ?F) (Oral) Resp 17 Ht 172.7cm (5' 7.99 ) Wt 88.8 kg (195 lb 12.3 oz) SpO2 96% BMI 29.77 kg/c9Btqyez/Output Summary (Last 24 hours) at 10/06/17 1008Last [...] values in this interval not displayed.CoagsRecent Labs 09/24/1808/255288 397760JXTC 25.9 24.9 -- -- 39.8* 31.6INR 1.2 1.1 1.0 2.0* 2.0* 1.5*Imaging:KUB (10/05/17):IMPRESSION:No dilated loops of bowel. ?Postsurgical changes.Salvador Birmingham MDResident General Surgery Normal [facility] Phosphoruson 10-06-2017 Phosphate 3.2 mg/dL Normal 2.5-4.5 [facility] Comment on above: Performed By: #### P T, PTT, AMYL, CMP, LIPA, PHOS ####[facility] [place], [place] [phone]#### TRANSF ####[facility] [place], [place] [phone] XR ABDOMEN 1V SPECIFYon 09-27 XR ABDOMEN [...] indeterminate etiology.IMPRESSION:No dilated loops of bowel. Postsurgical changes.Ditch Cleaner: PSCB Transcribe Date/Time: Oct 06 2017 6:41ADictated by : MELCHOR OSBORN MDThis examination was interpreted and the report reviewed and electronically signed by: MELCHOR OSBORN MD on Oct 06 2017 6:45AM [id number] Normal [facility] CBC and Differentialon 10-05 Abs Baso <0.03 Normal <0.11 [facility] Comment on above: Performed By: #### P T, PTT, AMYL, CMP, LIPA, PHOS ####[place] [address]#### TRANSF ####[place] [address] [place] [address] Abs Jerome 0.47 k/uL Normal <0.87 [facility] Comment on above: Performed By: #### P T, PTT, AMYL, CMP, LIPA, PHOS ####[place] [address]#### TRANSF ####[place] [address] Abs Neut 3.08 k/uL Normal 1.45-7.50 [facility] Comment on above: Performed By: #### P T, PTT, AMYL, CMP, LIPA, PHOS ####[place] [address]#### TRANSF ####[place] [address] Basophils/100 WBC Auto (Bld) 0.2 % Normal [facility] Comment on above: Performed By: #### P T, PTT, AMYL, CMP, LIPA, PHOS ####[place] [address]#### TRANSF ####[place] [address] DTYPE Auto Diff Normal [facility] Comment on above: Performed By: #### P T, PTT, AMYL, CMP, LIPA, PHOS ####[place] [address]#### TRANSF ####[address] [place] [phone] Eosinophils 0.23 10*3/uL Normal <0.46 [facility] Comment on above: Performed By: #### P T, PTT, AMYL, CMP, LIPA, PHOS ####[place] [address]#### TRANSF ####[address] AvSelena [place] [phone] Eosinophils/100 leukocytes 4.1 % Normal [facility] Comment on above: Performed By: #### P T, PTT, AMYL, CMP, LIPA, PHOS ####[place] [address]#### TRANSF ####[place] [address] Erythrocyte distribution width Auto Ratio (RBC) 16.3 % High 11.5-15.0 [facility] Comment on above: Performed By: #### P T, PTT, AMYL, CMP, LIPA, PHOS ####[place] [address]#### TRANSF ####[place] [phone] Erythrocytes (RBC) 4.00 10*6/uL Low 4.20-6.00 [facility] Comment on above: Performed By: #### P T, PTT, AMYL, CMP, LIPA, PHOS ####[place] [address]#### TRANSF ####[place] [address] Hematocrit (HCT) 32.0 % Low 39.0-51.0 [facility] Comment on above: Performed By: #### P T, PTT, AMYL, CMP, LIPA, PHOS ####[place] [address]#### TRANSF ####[address] AvSel[place] [phone] Hemoglobin mass conc (Bld) 10.2 g/dL Low 13.0-17.0 [facility] Comment on above: Performed By: #### P T, PTT, AMYL, CMP, LIPA, PHOS ####[place] [address]#### TRANSF ####[place] [phone] Lymphocytes 1.82 10*3/uL Normal 1.00-4.00 [facility] Comment on above: Performed By: #### P T, PTT, AMYL, CMP, LIPA, PHOS ####[place] [address]#### TRANSF ####[place] [address] Lymphocytes/100 leukocytes 32.4 % Normal [facility] Comment on above: Performed By: #### P T, PTT, AMYL, CMP, LIPA, PHOS ####[place] [address]#### TRANSF ####[place] [address] MCH 25.5 pG Low 26.0-34.0 [facility] Comment on above: Performed By: #### P T, PTT, AMYL, CMP, LIPA, PHOS ####[place] [address]#### TRANSF ####[place] [address] MCHC mass conc (RBC) 31.9 g/dL Normal 30.5-36.0 [facility] Comment on above: Performed By: #### P T, PTT, AMYL, CMP, LIPA, PHOS ####[place] [address]#### TRANSF ####[place] [phone] MCV 80.0 fL Normal 80.0-100.0 [facility] Comment on above: Performed By: #### P T, PTT, AMYL, CMP, LIPA, PHOS ####[place] [address]#### TRANSF ####[place] [address] Monocytes/100 leukocytes 8.4 % Normal [facility] Comment on above: Performed By: #### P T, PTT, AMYL, CMP, LIPA, PHOS ####[place] [address]#### TRANSF ####[place] [address] Neutrophils/100 WBC Auto (Bld) 54.9 % Normal [facility] Comment on above: Performed By: #### P T, PTT, AMYL, CMP, LIPA, PHOS ####[place] [address]#### TRANSF ####[place] [address] Platelet mean volume (PMV) 9.3 fL Normal 9.0-12.7 [facility] Comment on above: Performed By: #### P T, PTT, AMYL, CMP, LIPA, PHOS ####[place] [address]#### TRANSF ####[place] [address] Platelets 314 10*3/uL Normal 150-400 [facility] Comment on above: Performed By: #### P T, PTT, AMYL, CMP, LIPA, PHOS ####[place] [address]#### TRANSF ####[place] [phone] WBC (Leukocytes) 5.61 10*3/uL Normal 3.70-11.00 [facility] Comment on above: Performed By: #### P T, PTT, AMYL, CMP, LIPA, PHOS ####[facility] [place], [place] [phone]#### TRANSF ####[facility] [address] [place], [place] [phone] CONSULTon 10-05-2017 CONSULT HNO ID: [id number] thor: Damaris Rojasice: EndocrinologyAuthor Type: PhysicianType: ConsultsFiled: 10/05/2017 6:01 PMNote Text:ENDOCRINOLOGY INITIAL CONSULTPATIENT NAME: Rocio JacksonMRN: [id number] DATE: 10/05/2017SERVICE TIME: 5:01 PMREASON FOR CONSULT: DM Type 2REQUESTING PHYSICIAN:Michael Jolley [facility] CARE PHYSICIAN: Adriane Nichols, DOSubjectiveHISTORY [...] sees primary caredoctor for DM management in [place]. He was on oral agentssaxagliptin 5 mg [...] Date- ANGIOPLASTY HX 05/15/2011 2 stents s/p [place];[facility]- CHOLECYSTECTOMY 08/11/2017 [facility]- PICC LINE INSERT/CONSULT 08/16/2017No family history [...] PRN Yrn Cedillo)Gonzalo 5 mg at 10/05/17 9607meovot-yhgyxmie-adlzdld 2 capsule cap(s) (CREON 24) 2 capsule ORAL TID wMEALS Flynn (Res) MD Jane 2 capsule at 10/04/17 1740phenol 1 Evans (CHLORASEPTIC) 1 Evans MUCOUS MEMBRANE (TOPICAL MOUTH ANDTHROAT) q 2 H PRN Kolby (Res) Kevin 1 Evans at 10/02/17 90563.9% NaCl 2-10 mL 2-10 mL INTRAVENOUS q 12 H Antonios (Res)(Hist) Sideris5 mL at 10/05/17 0805naloxone 0.2 mg injection (NARCAN) 0.2 mg INTRAVENOUS PRN Yrn Cedlilo)Bhatnagaraspirin, enteric coated 162 mg tab(s) (ASPIRIN, ENTERIC [...] lb 12.3 oz) SpO2 96% BMI 29.77 kg/e8Pwgujhs: Fatigued appearing, alert, in no acute distress, [...] 230 (A) H210/03/2017 5:34 PM 203 (A) 19/01/2018 11:57 PM [...] hours-clear liquid diet-glucose monitoring every 6 hourswill followDodeborah Aguilar, MDSIGNATURE: Damaris Aguilar, MDDATE: October 05, 2017TIME: 5:01 PM Normal [facility] Comp Metabolic Panelon 10-05 Alanine aminotransferase (ALT) 27 U/L Normal 5-50 [facility] Comment on above: Performed By: #### P T, PTT, AMYL, CMP, LIPA, PHOS ####[place] [address]206[address]#### TRANSF ####[place] [phone] Albumin 3.3 g/dL Low 3.5-5.0 [facility] Comment on above: Result Comment: Revi ewed Performed By: #### P T, PTT, AMYL, CMP, LIPA, PHOS ####[place] [address]206[address]#### TRANSF ####[phone] Alkaline phosphatase (ALP) 107 U/L Normal 40-150 [facility] Comment on above: Performed By: #### P T, PTT, AMYL, CMP, LIPA, PHOS ####[place] [address]#### TRANSF ####[place] [address] Anion gap 12 mmol/L Normal 9-18 [facility] Comment on above: Performed By: #### P T, PTT, AMYL, CMP, LIPA, PHOS ####[place] [address]#### TRANSF ####[place] [address] Aspartate aminotransferase (AST) 23 U/L Normal 7-40 [facility] Comment on above: Performed By: #### P T, PTT, AMYL, CMP, LIPA, PHOS ####[place] [address]#### TRANSF ####[place] [address] Bilirubin (total) 0.2 mg/dL Normal 0.0-1.5 [facility] Comment on above: Performed By: #### P T, PTT, AMYL, CMP, LIPA, PHOS ####[place] [address]#### TRANSF ####[place] [address] Calcium 8.9 mg/dL Normal 8.5-10.5 [facility] Comment on above: Performed By: #### P T, PTT, AMYL, CMP, LIPA, PHOS ####[place] [address]#### TRANSF ####[place] [address] Chloride 103 mmol/L Normal 98-110 [facility] Comment on above: Performed By: #### P T, PTT, AMYL, CMP, LIPA, PHOS ####[place] [address]#### TRANSF ####[place] [address] CO2 27 mmol/L Normal 23-32 [facility] Comment on above: Performed By: #### P T, PTT, AMYL, CMP, LIPA, PHOS ####[place] [address]#### TRANSF ####[place] [address] Creatinine 0.56 mg/dL Low 0.70-1.40 [facility] Comment on above: Performed By: #### P T, PTT, AMYL, CMP, LIPA, PHOS ####[place] [address]#### TRANSF ####[place] [address] eGFR (non-black) mL/min/{1.73_m2} Normal >60 [facility] Comment on above: Performed By: #### P T, PTT, AMYL, CMP, LIPA, PHOS ####[place] [address]#### TRANSF ####[place] [address] Glucose mass conc 172 mg/dL High 65-100 [facility] Comment on above: Performed By: #### P T, PTT, AMYL, CMP, LIPA, PHOS ####[address]#### TRANSF ####[place] [address]184[address] Potassium molar conc 4.6 mmol/L Normal 3.5-5.0 [facility] Comment on above: Performed By: #### P T, PTT, AMYL, CMP, LIPA, PHOS ####[place] [address]#### TRANSF ####[place] [address] Protein 6.5 g/dL Normal 6.0-8.4 [facility] Comment on above: Performed By: #### P T, PTT, AMYL, CMP, LIPA, PHOS ####[place] [address]#### TRANSF ####[place] [address] Sodium 142 mmol/L Normal 135-146 [facility] Comment on above: Performed By: #### P T, PTT, AMYL, CMP, LIPA, PHOS ####[place] [address]#### TRANSF ####[place] [address] Urea nitrogen 14 mg/dL Normal 10-25 [facility] Comment on above: Performed By: #### P T, PTT, AMYL, CMP, LIPA, PHOS ####[place] [address]#### TRANSF ####[place] [address] Magnesiumon 10-05-2017 Magnesium 2.1 mg/dL Normal 1.7-2.6 [facility] [place] Comment on above: Performed By: #### P T, PTT, AMYL, CMP, LIPA, PHOS ####[place] [address]#### TRANSF ####[place] [address] NURSING PROGon 10-05-2017 NURSING PROG HNO ID: [id number] thor: Saima Kramer (RnLyric Richardson, RNService: (none)Author Type: Registered NurseType: Nursing Progress NoteFiled: 10/05/2017 3:52 PMNote Text: Nursing Progress NotePatient Name: Rocio Boudreaux: [id number] Location: [place] [address]/[id number] ____Daily Note:Pt sitting on edge of bed [...] note was completed by: Saima Richardson RN [facility] PROGRESSon 10-05-2017 PROGRESS HNO ID: [id number] thor: Michael Cedillo) AugustinService: General SurgeryAuthor Type: PhysicianType: Progress NotesFiled: 10/05/2017 6:45 PMNote Text:SURGICAL SERVICES PROGRESS NOTENAME: Rocio Boudreaux: [id number]: 10/05/2017Time: 7:15 JUDIE DATE: 09/30/20175 Days Post-OpProcedure(s) [...] oz) SpO2 96% BMI 29.77 kg/m2Date 10/04/17 0700 - 10/05/17 0659 10/05/17 0700 - 10/06/17 0659Shift 3455-5068 1928-1497 1814-9449 24 Hour Total 5316-6697 7129-64133510-7735 24 Hour TotalINTAKE PO 770 1229 248 8641 PO 874 818 0507 Tube Feed Intake (GI Feed/Drain 09/30/17 Small Bore Feeding Right Naris10 Fr) 240 983 587 8203 Irrigants 5 115 180 300 Irrigant/Flush Amount In (Drain/Tube 08/27/17 Admission to HospitalRight Upper Quadrant Abdomen Drain #3) 5 5 10 Irrigant/Flush Amount In (GI Feed/Drain 09/30/17 Small Bore FeedingRight Naris 10 Fr) 110 180 290 Shift Total 775 1285 718 2778OUTPUT Urine 211 406 9462 3075 Void (ml) 525 1850 2375 Tube [...] x 1 x 5 x Shift Total 236 454 0246 3425Weight (kg) 88.8 88.8 88.8 88.8 88.8 88.8 88.8 88.8DIAGNOSTIC STUDIES:CBC:Hemoglobin (g/dL)Date Value10/05/2017 10.2 Hematocrit (%)Date Value10/05/2017 32.0 WBC (k/uL)Date Value10/05/2017 5.61 Platelet Count (k/uL)Date Value10/05/2017 314 CMP:BMP:Glucose 172 10/05/2017BUN 14 10/05/2017Creatinine 0.56 10/05/2017Sodium 142 10/05/2017Potassium 4.6 10/05/2017Chloride 103 10/05/2017CO2 27 10/05/2017Protein, Total 6.5 10/05/2017Albumin 3.3 10/05/2017Calcium 8.9 10/05/2017Alkaline Phosphatase 107 10/05/2017Bilirubin, Total 0.2 10/05/2017AST 23 10/05/2017ALT 27 10/05/2017MATI MejiaGY II general surgeryPager [phone] - 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Pager [phone] - PersonalSTAFF NOTEI have independently seen and examined the patient today. I haveindependently reviewed all the imaging and the labs. I agree with keycomponents of the resident's note above. Care plan and decision making hasbeen discussed.Doing well, continued DGETolerating tube feedsClearsToms MD Froilan, MPH, FACSGeneral/Trauma/HPB SurgeryPager: [phone] Cell: [phone] 2017 Normal [facility] [place] Phosphoruson 10-05-2017 Phosphate 3.6 mg/dL Normal 2.5-4.5 [facility] [place] Comment on above: Performed By: #### P T, PTT, AMYL, CMP, LIPA, PHOS ####[place] [address]#### TRANSF ####[phone] CBC and Differentialon 10-04 Abs Baso <0.03 Normal <0.11 [facility] [place] Comment on above: Performed By: #### P T, PTT, AMYL, CMP, LIPA, PHOS ####[place] [address]#### TRANSF ####[phone] Abs Jerome 0.32 k/uL Normal <0.87 [facility] [place] Comment on above: Performed By: #### P T, PTT, AMYL, CMP, LIPA, PHOS ####[place] [address]#### TRANSF ####[place] [address] Abs Neut 2.35 k/uL Normal 1.45-7.50 [facility] [place] Comment on above: Performed By: #### P T, PTT, AMYL, CMP, LIPA, PHOS ####[place] [address]#### TRANSF ####[place] [address] Basophils/100 WBC Auto (Bld) 0.2 % Normal [facility] [place] Comment on above: Performed By: #### P T, PTT, AMYL, CMP, LIPA, PHOS ####[place] [address]#### TRANSF ####[phone] DTYPE Auto Diff Normal [facility] [place] Comment on above: Performed By: #### P T, PTT, AMYL, CMP, LIPA, PHOS ####[place] [address]#### TRANSF ####[place] [address] Eosinophils 0.25 10*3/uL Normal <0.46 [facility] [place] Comment on above: Performed By: #### P T, PTT, AMYL, CMP, LIPA, PHOS ####[place] [address]#### TRANSF ####[place] [address] Eosinophils/100 leukocytes 6.0 % Normal [facility] [place] Comment on above: Performed By: #### P T, PTT, AMYL, CMP, LIPA, PHOS ####[place] [address]#### TRANSF ####[place] [address] Erythrocyte distribution width Auto Ratio (RBC) 16.3 % High 11.5-15.0 [facility] Comment on above: Performed By: #### P T, PTT, AMYL, CMP, LIPA, PHOS ####[place] [address]#### TRANSF ####[place] [address] Erythrocytes (RBC) 3.42 10*6/uL Low 4.20-6.00 [facility] Comment on above: Performed By: #### P T, PTT, AMYL, CMP, LIPA, PHOS ####[place] [address]#### TRANSF ####[place] [address] Hematocrit (HCT) 27.0 % Low 39.0-51.0 [facility] [place] Comment on above: Performed By: #### P T, PTT, AMYL, CMP, LIPA, PHOS ####[place] [address]#### TRANSF ####[phone] Hemoglobin mass conc (Bld) 8.7 g/dL Low 13.0-17.0 [facility] Comment on above: Performed By: #### P T, PTT, AMYL, CMP, LIPA, PHOS ####[place] [address]#### TRANSF ####[place] [address] Lymphocytes 1.27 10*3/uL Normal 1.00-4.00 [facility] [place] Comment on above: Performed By: #### P T, PTT, AMYL, CMP, LIPA, PHOS ####[place] [address]#### TRANSF ####[place] [address] Lymphocytes/100 leukocytes 30.2 % Normal [facility] [place] Comment on above: Performed By: #### P T, PTT, AMYL, CMP, LIPA, PHOS ####[place] [address]#### TRANSF ####[place] [address] MCH 25.4 pG Low 26.0-34.0 [facility] Comment on above: Performed By: #### P T, PTT, AMYL, CMP, LIPA, PHOS ####[place] [address]#### TRANSF ####[place] [address] MCHC mass conc (RBC) 32.2 g/dL Normal 30.5-36.0 [facility] Comment on above: Performed By: #### P T, PTT, AMYL, CMP, LIPA, PHOS ####[place] [address]#### TRANSF ####[place] [address] [address] AveCEmily [place]ille [phone] MCV 78.9 fL Low 80.0-100.0 [facility] Comment on above: Performed By: #### P T, PTT, AMYL, CMP, LIPA, PHOS ####[place] [address]#### TRANSF ####[address] [address] Monocytes/100 leukocytes 7.6 % Normal [facility] Comment on above: Performed By: #### P T, PTT, AMYL, CMP, LIPA, PHOS ####[place] [address]#### TRANSF ####[address] Av[address] [place] [phone] Neutrophils/100 WBC Auto (Bld) 56.0 % Normal [facility] Comment on above: Performed By: #### P T, PTT, AMYL, CMP, LIPA, PHOS ####[place] [address]#### TRANSF ####[place] [address] [phone] Platelet mean volume (PMV) 9.2 fL Normal 9.0-12.7 [facility] Comment on above: Performed By: #### P T, PTT, AMYL, CMP, LIPA, PHOS ####[place] [address]#### TRANSF ####[address] Ville [phone] Platelets 246 10*3/uL Normal 150-400 [facility] Comment on above: Performed By: #### P T, PTT, AMYL, CMP, LIPA, PHOS ####[facility] [place], [place] [phone]#### TRANSF ####[place] [address] [place], [place] [phone] WBC (Leukocytes) 4.20 10*3/uL Normal 3.70-11.00 [facility] Comment on above: Performed By: #### P T, PTT, AMYL, CMP, LIPA, PHOS ####[facility] [place], [place] [phone]#### TRANSF ####[place] [address] [place], [place] [phone] CONSULT PROGon 10-04-2017 CONSULT PROG HNO ID: [id number] thor: Brock Felder) Najma: Pain ManagementAuthor Type: Physician AssistantType: Consult Progress NoteFiled: 10/04/2017 8:53 AMNote Text:PERIPHERAL NERVE CATHETER PROGRESS NOTEPATIENT NAME: Rocio JacksonMRN: [id number] DATE: 10/04/2017SERVICE TIME: 8:36 AMPRIMARY SERVICE:?General Surgery??ASSESSMENT [...] placed: Day of surgery??MEDICATIONS:??Epidu ral Medications and FRET SAW OPERATOR SettingsBupivacaine 0.1% + Dilaudid??Basal rate: 4?mL/hr.Patient Demand Bolus: 3?mL.Lockout interval: 4?minutesCurrent hospital medications:oxyCODONE IR 5 mg tab(s) (ROXICODONE) 5 mg ORAL q 4 H CHBuxvzvy-kxxsuqdk-ebcwzrl 2 capsule cap(s) (CREON 24) 2 capsule ORAL TID wMEALSacetaminophen 650 mg tab(s) (TYLENOL) 650 mg ORAL q 6 Hdocusate sodium 100 mg cap(s) (COLACE) 100 mg ORAL BIDatorvastatin 40 mg tab(s) (LIPITOR) 40 mg ORAL/FEEDING TUBE AT BEDTIMEphenol 1 Evans (CHLORASEPTIC) 1 Evans MUCOUS MEMBRANE (TOPICAL MOUTH ANDTHROAT) q 2 [...] mg ORAL q 8 HHYDROmorphone 0.5 mg/mL FRET SAW OPERATOR CLINICIAN DOSE 0.2 mg 0.2 mg INTRAVENOUS [...] Sánchez.SIGNATURE: Brock Dixon PA-C PATIENT NAME: Rocio Sibley: October 04, 2017 : 8:36 AM PAGER/CONTACT #: [place] [phone] Normal [facility] Comp Metabolic Panelon 10-04 Alanine aminotransferase (ALT) 23 U/L Normal 5-50 [facility] Comment on above: Performed By: #### P T, PTT, AMYL, CMP, LIPA, PHOS ####[place] [address]#### TRANSF ####[place] [address] Albumin 2.3 g/dL Low 3.5-5.0 [facility] Comment on above: Performed By: #### P T, PTT, AMYL, CMP, LIPA, PHOS ####[place] [address]#### TRANSF ####[place] [address] Alkaline phosphatase (ALP) 83 U/L Normal 40-150 [facility] Comment on above: Performed By: #### P T, PTT, AMYL, CMP, LIPA, PHOS ####[place] [address]#### TRANSF ####[place] [phone] Anion gap 11 mmol/L Normal 9-18 [facility] Comment on above: Performed By: #### P T, PTT, AMYL, CMP, LIPA, PHOS ####[place] [address]#### TRANSF ####[place] [address] Aspartate aminotransferase (AST) 19 U/L Normal 7-40 [facility] Comment on above: Performed By: #### P T, PTT, AMYL, CMP, LIPA, PHOS ####[place] [address]#### TRANSF ####[place] [address] Bilirubin (total) 0.2 mg/dL Normal 0.0-1.5 [facility] Comment on above: Performed By: #### P T, PTT, AMYL, CMP, LIPA, PHOS ####[place] [address]#### TRANSF ####[place] [address] Calcium 8.1 mg/dL Low 8.5-10.5 [facility] Comment on above: Performed By: #### P T, PTT, AMYL, CMP, LIPA, PHOS ####[place] [address]#### TRANSF ####[place] [address] Chloride 103 mmol/L Normal 98-110 [facility] Comment on above: Performed By: #### P T, PTT, AMYL, CMP, LIPA, PHOS ####[place] [address]#### TRANSF ####[place] [address] CO2 25 mmol/L Normal 23-32 [facility] Comment on above: Performed By: #### P T, PTT, AMYL, CMP, LIPA, PHOS ####[place] [phone]#### TRANSF ####[place] [address] Creatinine 0.54 mg/dL Low 0.70-1.40 [facility] Comment on above: Performed By: #### P T, PTT, AMYL, CMP, LIPA, PHOS ####[place] [address]#### TRANSF ####[place] [address] eGFR (non-black) mL/min/{1.73_m2} Normal >60 [facility] Comment on above: Performed By: #### P T, PTT, AMYL, CMP, LIPA, PHOS ####[place] [address]#### TRANSF ####[place] [address] Glucose mass conc 146 mg/dL High 65-100 [facility] Comment on above: Performed By: #### P T, PTT, AMYL, CMP, LIPA, PHOS ####[address]#### TRANSF ####[place] [address] Potassium molar conc 4.0 mmol/L Normal 3.5-5.0 [facility] Comment on above: Performed By: #### P T, PTT, AMYL, CMP, LIPA, PHOS ####[address]#### TRANSF ####[place] [address] Protein 5.6 g/dL Low 6.0-8.4 [facility] [place] Comment on above: Performed By: #### P T, PTT, AMYL, CMP, LIPA, PHOS ####[place] [address]#### TRANSF ####[place] [address] Sodium 139 mmol/L Normal 135-146 [facility] [place] Comment on above: Performed By: #### P T, PTT, AMYL, CMP, LIPA, PHOS ####[place] [address]#### TRANSF ####[place] [address] Urea nitrogen 16 mg/dL Normal 10-25 [facility] [place] Comment on above: Performed By: #### P T, PTT, AMYL, CMP, LIPA, PHOS ####[place] [address]#### TRANSF ####[place] [address] Magnesiumon 10-04-2017 Magnesium 1.8 mg/dL Normal 1.7-2.6 [facility] [place] Comment on above: Performed By: #### P T, PTT, AMYL, CMP, LIPA, PHOS ####[place] [address]#### TRANSF ####[address] NURSING PROGon 10-04-2017 NURSING PROG HNO ID: [id number] thor: Srinivasan (Rn) Bonnie, RNService: (none)Author Type: Registered NurseType: Nursing Progress NoteFiled: 10/05/2017 5:27 AMNote Text: Nursing Progress NotePatient Name: Rocio HayesMarisa: [id number] Location: [place] [address]/VI-[id number] ____Daily Note:2049: Pt had one 50cc emesis. Medicated with Lchmdc5474: Pt reassessed. States nausea has subsided. Will continue to monitor.0455: Pt had 300cc green emesis episode. Medicated with zofran. Text pagesent to SROC to make aware.0525: SROC returned called. day team will be rounding soon. Willcontinue to monitor.This note was completed by: Srinivasan Nicole RN [facility] PROGRESSon 10-04-2017 PROGRESS HNO ID: [id number] thor: Mela Carroll: General SurgeryAuthor Type: PhysicianType: Progress NotesFiled: 10/04/2017 1:07 PMNote Text:General Surgery Progress NoteService Date: October 04, 2017Assessment and Plan: Rocio Jacksno is a 62 year old male with [...] lb 12.3 oz) SpO2 94% BMI 29.77 kg/y3WLPXPOW: no acute distressABDOMEN: soft, nontender, mildly distended. Incision c/d/i. [place] drainingyellow-red urine.Labs:CBC, BMP, MG, PHOSRecent Labs 0 10/02/1820326WBC 4.20 5.92 6.15 6.47 -- 8.38HB 8.7* [...] 0.5LACT -- -- -- -- 2.3*CoagsRecent Labs 09/24/1808PTT 25.9 24.9 -- -- 39.8* 31.6INR 1.2 1.1 1.0 2.0* 2.0* 1.5*Current Medications:Current hospital medications:morphine 1-2 mg injection 1-2 mg INTRAVENOUS q 6 H PRNoxyCODONE 5 mg oral liquid (ROXICODONE) 5 mg ORAL q 4 H IJHrwuuxi-phzvqgsi-xqrypjh 2 capsule cap(s) (CREON 24) 2 capsule ORAL TID wMEALSacetaminophen 650 mg tab(s) (TYLENOL) 650 mg ORAL q 6 Hdocusate sodium 100 mg cap(s) (COLACE) 100 mg ORAL BIDatorvastatin 40 mg tab(s) (LIPITOR) 40 mg ORAL/FEEDING TUBE AT BEDTIMEphenol 1 Evans (CHLORASEPTIC) 1 Evans MUCOUS MEMBRANE (TOPICAL MOUTH ANDTHROAT) q 2 [...] after epidural removalMuriel Perez 2017 1:07 PM [facility] Phosphoruson 10-04-2017 Phosphate 3.5 mg/dL Normal 2.5-4.5 [facility] Comment on above: Performed By: #### P T, PTT, AMYL, CMP, LIPA, PHOS ####[facility] [place], [place] [phone]#### TRANSF ####[facility] [place]Fort [place], [place] [phone] Amylaseon 10-03-2017 Amylase 44 U/L Normal 0-137 [facility] Comment on above: Performed By: #### P T, PTT, AMYL, CMP, LIPA, PHOS ####[facility] [place] [phone]#### TRANSF ####[place] [address] [place]Fort [place], [place] [phone] Amylase,Body Fluidon 018 Amylase 118 U/L Critically abnormal See Comment [facility] Comment on above: Result Comment: (NOT E)PLEURAL [...] CLSI document C49-A. SAIMA Contreras: Clinical LaboratoryStandards [place]; 2007.3. Kya EDUARDO, Angelia SANCHEZ, Nimo DJ. Use of cyst fluid CEA,CA19-9, and amylase for evaluation of pancreatic lesions. ClinicalBiochemistry. 2009;42:3407-2647.This test was developed and its performance characteristicsdetermined by [facility] and[facility] [place] ([facility]).It has not been cleared or approved by the FDA. [facility] is regulatedunder [place] as qualified to perform high-complexity testing.This test is used for clinical purposes. It should not be regarded asinvestigational or for research. Performed By: #### P T, PTT, AMYL, CMP, LIPA, PHOS ####[place] [address]#### TRANSF ####[place] [address] Fluid Type Chandana Howard Drain Normal [facility] Comment on above: Result Comment: LEFT Performed By: #### P T, PTT, AMYL, CMP, LIPA, PHOS ####[place] [address]#### TRANSF ####[place] [address] Amylase 53 U/L Critically abnormal See Comment [facility] Comment on above: Result Comment: (NOT E)PLEURAL [...] ApprovedGuideline. CLSI document C49-A. SAIMA Contreras: Clinical LaboratoryStandgila regional medical center [place]; 2006.3. Kya CL, Angelia SANCHEZ, Nimo DJ. Use of cyst fluid CEA,CA19-9, and amylase for evaluation of pancreatic lesions. ClinicalBiochemistry. 2009;42:3685-5563.This test was developed and its performance characteristicsdetermined by [facility]'s [facility] Pathology and[facility] [place] ([facility]).It has not been cleared or approved by the FDA. [facility] is regulatedunder [facility] as qualified to perform high-complexity testing.This test is used for clinical purposes. It should not be regarded asinvestigational or for research. Performed By: #### P T, PTT, AMYL, CMP, LIPA, PHOS ####[place] [address]#### TRANSF ####[place] [address] Fluid Type Chandana Howard Drain Normal [facility] Comment on above: Result Comment: RIGH T Performed By: #### P T, PTT, AMYL, CMP, LIPA, PHOS ####[place] [address]#### TRANSF ####[place] [address] CBC and Differentialon 10-03 Abs Baso <0.03 Normal <0.11 [facility] Comment on above: Performed By: #### P T, PTT, AMYL, CMP, LIPA, PHOS ####[place] [address]#### TRANSF ####[place] [address] [address] AveCDonald [place] [address] Abs Jerome 0.54 k/uL Normal <0.87 [facility] Comment on above: Performed By: #### P T, PTT, AMYL, CMP, LIPA, PHOS ####[place] [address]#### TRANSF ####[place] [address] [address] AvTiffany [place] [address] Abs Neut 3.56 k/uL Normal 1.45-7.50 [facility] Comment on above: Performed By: #### P T, PTT, AMYL, CMP, LIPA, PHOS ####[place] [address]#### TRANSF ####[place] [address] Basophils/100 WBC Auto (Bld) 0.2 % Normal [facility] Comment on above: Performed By: #### P T, PTT, AMYL, CMP, LIPA, PHOS ####[place] [address]#### TRANSF ####[place] [address] DTYPE Auto Diff Normal [facility] Comment on above: Performed By: #### P T, PTT, AMYL, CMP, LIPA, PHOS ####[place] [address]#### TRANSF ####[place] [address] Eosinophils 0.29 10*3/uL Normal <0.46 [facility] Comment on above: Performed By: #### P T, PTT, AMYL, CMP, LIPA, PHOS ####[place] [address]#### TRANSF ####[address]Tiffany [place]ille [address] Eosinophils/100 leukocytes 4.9 % Normal [facility] Comment on above: Performed By: #### P T, PTT, AMYL, CMP, LIPA, PHOS ####[place] [address]#### TRANSF ####[place] [address] Erythrocyte distribution width Auto Ratio (RBC) 16.1 % High 11.5-15.0 [facility] Comment on above: Performed By: #### P T, PTT, AMYL, CMP, LIPA, PHOS ####[place] [address]#### TRANSF ####[place] [address] Erythrocytes (RBC) 3.72 10*6/uL Low 4.20-6.00 [facility] Comment on above: Performed By: #### P T, PTT, AMYL, CMP, LIPA, PHOS ####[place] [address]#### TRANSF ####[place] [address]184[address] Hematocrit (HCT) 29.4 % Low 39.0-51.0 [facility] Comment on above: Performed By: #### P T, PTT, AMYL, CMP, LIPA, PHOS ####[place] [address]#### TRANSF ####[place] [address]184[address] Hemoglobin mass conc (Bld) 9.5 g/dL Low 13.0-17.0 [facility] Comment on above: Performed By: #### P T, PTT, AMYL, CMP, LIPA, PHOS ####[place] [phone]#### TRANSF ####[place] [address] Lymphocytes 1.52 10*3/uL Normal 1.00-4.00 [facility] Comment on above: Performed By: #### P T, PTT, AMYL, CMP, LIPA, PHOS ####[place] [address]#### TRANSF ####[place] [address]184[address] Lymphocytes/100 leukocytes 25.7 % Normal [facility] Comment on above: Performed By: #### P T, PTT, AMYL, CMP, LIPA, PHOS ####[place] [address]#### TRANSF ####[place] [address] MCH 25.5 pG Low 26.0-34.0 [facility] Comment on above: Performed By: #### P T, PTT, AMYL, CMP, LIPA, PHOS ####[place] [address]#### TRANSF ####[place] [address]184[address] MCHC mass conc (RBC) 32.3 g/dL Normal 30.5-36.0 [facility] Comment on above: Performed By: #### P T, PTT, AMYL, CMP, LIPA, PHOS ####[place] [address]#### TRANSF ####[place] [address] MCV 79.0 fL Low 80.0-100.0 [facility] Comment on above: Performed By: #### P T, PTT, AMYL, CMP, LIPA, PHOS ####[place] [address]#### TRANSF ####[place] [phone] Monocytes/100 leukocytes 9.1 % Normal [facility] Comment on above: Performed By: #### P T, PTT, AMYL, CMP, LIPA, PHOS ####[place] [address]#### TRANSF ####[place] [address] Neutrophils/100 WBC Auto (Bld) 60.1 % Normal [facility] Comment on above: Performed By: #### P T, PTT, AMYL, CMP, LIPA, PHOS ####[place] [address]#### TRANSF ####[place] [address] Platelet mean volume (PMV) 10.0 fL Normal 9.0-12.7 [facility] Comment on above: Performed By: #### P T, PTT, AMYL, CMP, LIPA, PHOS ####[address]#### TRANSF ####[place] [phone] Platelets 225 10*3/uL Normal 150-400 [facility] Comment on above: Performed By: #### P T, PTT, AMYL, CMP, LIPA, PHOS ####[place] [address]#### TRANSF ####[place] [phone] WBC (Leukocytes) 5.92 10*3/uL Normal 3.70-11.00 [facility] Comment on above: Performed By: #### P T, PTT, AMYL, CMP, LIPA, PHOS ####[facility] [place], [place] [phone]#### TRANSF ####[facility] [place], [place] [phone] CONSULT PROGon 10-03-2017 CONSULT PROG HNO ID: [id number] thor: Brock DixonService: Pain ManagementAuthor Type: Physician AssistantType: Consult Progress NoteFiled: 10/03/2017 9:15 AMNote Text:PERIPHERAL NERVE CATHETER PROGRESS NOTEPATIENT NAME: Rocio JacksonMRN: [id number] DATE: 10/03/2017SERVICE TIME: 8:59 AMPRIMARY SERVICE: General [...] catheter placed: Day of surgery?MEDICATIONS:Epidural Medications and FRET SAW OPERATOR SettingsBupivacaine 0.1% + Dilaudid?Basal rate: 4 mL/hr.Patient Demand Bolus: 3 mL.Lockout interval: 4 minutes.??Current hospital medications:oxyCODONE IR 5 mg tab(s) (ROXICODONE) 5 mg ORAL q 4 H PRNdocusate sodium 100 mg cap(s) (COLACE) 100 mg ORAL BIDacetaminophen 650 mg CUP (TYLENOL) 650 mg ORAL/FEEDING TUBE q 6 Hatorvastatin 40 mg tab(s) (LIPITOR) 40 mg ORAL/FEEDING TUBE AT BEDTIMEphenol 1 Evans (CHLORASEPTIC) 1 Evans MUCOUS MEMBRANE (TOPICAL MOUTH ANDTHROAT) q 2 [...] mg ORAL q 8 HHYDROmorphone 0.5 mg/mL FRET SAW OPERATOR CLINICIAN DOSE 0.2 mg 0.2 mg INTRAVENOUS q 6 HPRNinsulin lispro injection (rapid acting) (HumaLOG) SUBCUTANEOUS q 6 Hheparin 5,000 Units injection 5,000 Units SUBCUTANEOUS q 12 Hmetoclopramide HCl 10 mg injection (REGLAN) 10 mg INTRAVENOUS q 6 H PRNOBJECTIVE:PHYSICAL EXAM:Patient Vitals for the past 3 hrs: BP Temp Temp src Pulse Resp CdX053/01/13 0736 134/78 37.3 ?C (99.2 ?F) Oral [...] Dr. RaiATURE: Brock Dixon PA-C PATIENT NAME: Rocoi Sibley: October 03, 2017 : 8:59 AM PAGER/CONTACT #: [phone] Normal [facility] Comp Metabolic Panelon 10-03 Alanine aminotransferase (ALT) 25 U/L Normal 5-50 [facility] Comment on above: Performed By: #### P T, PTT, AMYL, CMP, LIPA, PHOS ####[facility] [place], [place] [phone]#### TRANSF ####[facility] [place], [place] [phone] Albumin 2.5 g/dL Low 3.5-5.0 [facility] Comment on above: Performed By: #### P T, PTT, AMYL, CMP, LIPA, PHOS ####[place] [address]#### TRANSF ####[place] [address] Alkaline phosphatase (ALP) 72 U/L Normal 40-150 [facility] Comment on above: Performed By: #### P T, PTT, AMYL, CMP, LIPA, PHOS ####[place] [address]#### TRANSF ####[place] [address] Anion gap 11 mmol/L Normal 9-18 [facility] Comment on above: Performed By: #### P T, PTT, AMYL, CMP, LIPA, PHOS ####[place] [address]#### TRANSF ####[place] [address] Aspartate aminotransferase (AST) 20 U/L Normal 7-40 [facility] Comment on above: Performed By: #### P T, PTT, AMYL, CMP, LIPA, PHOS ####[place] [address]#### TRANSF ####[place] [address] Bilirubin (total) 0.2 mg/dL Normal 0.0-1.5 [facility] Comment on above: Performed By: #### P T, PTT, AMYL, CMP, LIPA, PHOS ####[place] [address]#### TRANSF ####[place] [address] Calcium 8.3 mg/dL Low 8.5-10.5 [facility] Comment on above: Performed By: #### P T, PTT, AMYL, CMP, LIPA, PHOS ####[place] [address]#### TRANSF ####[place] [address] Chloride 105 mmol/L Normal 98-110 [facility] Comment on above: Performed By: #### P T, PTT, AMYL, CMP, LIPA, PHOS ####[place] [address]#### TRANSF ####[place] [address] CO2 24 mmol/L Normal 23-32 [facility] Comment on above: Performed By: #### P T, PTT, AMYL, CMP, LIPA, PHOS ####[place] [address]#### TRANSF ####[place] [address] Creatinine 0.55 mg/dL Low 0.70-1.40 [facility] Comment on above: Performed By: #### P T, PTT, AMYL, CMP, LIPA, PHOS ####[place] [address]#### TRANSF ####[place] [address] eGFR (non-black) mL/min/{1.73_m2} Normal >60 [facility] Comment on above: Performed By: #### P T, PTT, AMYL, CMP, LIPA, PHOS ####[place] [address]#### TRANSF ####[place] [address] Glucose mass conc 138 mg/dL High 65-100 [facility] Comment on above: Performed By: #### P T, PTT, AMYL, CMP, LIPA, PHOS ####[place] [address]#### TRANSF ####[place] [address]184[address] Potassium molar conc 4.1 mmol/L Normal 3.5-5.0 [facility] Comment on above: Performed By: #### P T, PTT, AMYL, CMP, LIPA, PHOS ####[place] [address]#### TRANSF ####[place] [address] Protein 5.7 g/dL Low 6.0-8.4 [facility] Comment on above: Performed By: #### P T, PTT, AMYL, CMP, LIPA, PHOS ####[place] [address]#### TRANSF ####[place] [address] Sodium 140 mmol/L Normal 135-146 [facility] Comment on above: Performed By: #### P T, PTT, AMYL, CMP, LIPA, PHOS ####[place] [address]#### TRANSF ####[place] [address] Urea nitrogen 18 mg/dL Normal 10-25 [facility] Comment on above: Performed By: #### P T, PTT, AMYL, CMP, LIPA, PHOS ####[place] [address]#### TRANSF ####[place] [address] Magnesiumon 04-07-2018 Magnesium 1.8 mg/dL Normal 1.7-2.6 [facility] Comment on above: Performed By: #### P T, PTT, AMYL, CMP, LIPA, PHOS ####[facility] [place], [place] [phone]#### TRANSF ####[facility] [place], [place] [phone] NURSING PROGon 10-03-2017 NURSING PROG HNO ID: [id number] thor: Srinivasan (Rn) Bonnie, MOUSTAPHAervice: (none)Author Type: Registered NurseType: Nursing Progress NoteFiled: 10/04/2017 1:34 AMNote Text: Nursing Progress NotePatient Name: Rocio TorresDary: [id number] Location: [address]/YY-[id number]-03 ____Daily Note: Pt AANDOx3. Adequate saturation on RA. ABD distended, tender totouch. Midline ADELA. Pt states he has passed a little gas. [place]anc[place] drainingclear, yellow. Epidural infusing per order. Tube feed at 50cc/hr.Ambulated pod with x1 assist and walker. No needs voiced. Call lightwithin reach, will continue to monitor.This note was completed by: Srinivasan Nicole RN Normal [facility] NURSING PROG HNO ID: [id number] thor: Serena KenRn) MOUSTAPHA Stewartervice: NursingAuthor Type: Registered NurseType: Nursing Progress NoteFiled: 10/03/2017 6:32 PMNote Text: Nursing Progress NotePatient Name: Rocio BrianDary: [id number] Location: [place] [address]/[id number] ____Daily Note: Late entry for 1100: Pt [...] home around POD for 2nd time this rtaad1612: Resident into remove pt's ROMINA drains. PtThis note was completed by: Serena Stewart RN [facility] NURSING PROG HNO ID: [id number] thor: Jennifer Humphries (Rn) Eleanor, RNService: (none)Author Type: Registered NurseType: Nursing Progress NoteFiled: 10/02/2017 11:39 PMNote Text: Nursing Progress NotePatient Name: Rocio JacksonMRN: [id number] Location: [place] [address]/ED-[id number] ____ Pt up in chair at start of shift. Pts and sister staying in room wpt. Rates pain 1 , states epidural adequate for pain control. Bili drainflushed earlier per orders, flushes well. Pt denies nausea with clears.BS hypo. Denies passing flatus.This note was completed by: Jennifer Webster RN [facility] PROGRESSon 10-03-2017 PROGRESS HNO ID: [id number] thor: Mela Carroll: General SurgeryAuthor Type: PhysicianType: Progress NotesFiled: 10/03/2017 1:26 PMNote Text:Covering MDNo new c/oPain well controlledCont epidural for nowWill remove drains if no evid for leakPt appreciative of Molly Verdin MD [facility] PROGRESS HNO ID: [id number] thor: Flynn (Res) ASHLEY Laraervice: General SurgeryAuthor [...] lb 12.3 oz) SpO2 97% BMI 29.77 kg/y8PXPNRKR: no acute distressABDOMEN: soft, diffusely tender, nondistended. [...] 0.3 0.5LACT -- -- -- 2.3*CoagsRecent Labs 09/24/1808976445KCYR 25.9 24.9 -- -- 39.8* 31.6INR 1.2 1.1 1.0 2.0* 2.0* 1.5*Intake and Output:Date 10/01/17699 - 10/02/17 0659 10/02/17699 - 10/03/17 0659Shift 5657-7687 4271-9783 8135-8219 24 Hour Total 2393-7030 6027-36276368-8559 24 Hour TotalINTAKE PO 0 97 482 [...] 2886 601.6 3637.6 60 60OUTPUT Urine 310 207 732 4282 75 75 Tube Output ( Indwelling Urinary Catheter 09/30/17 0909 [place] 16Fr) 310 124 598 5559 75 75 Tubes 70 135 35 240 [...] BM (mL) 0 0 Shift Total 380 880 445 7783 75 75Weight (kg) 81.1 81.1 88.8 88.8 88.8 88.8 88.8 88.8Current Medications:Current hospital medications:oxyCODONE IR 5 mg tab(s) (ROXICODONE) 5 mg ORAL q 4 H MGDeqacot-lbnuodze-lmdmfkb 2 capsule cap(s) (CREON 24) 2 capsule ORAL TID wMEALSacetaminophen 650 mg tab(s) (TYLENOL) 650 mg ORAL q 6 Hdocusate sodium 100 mg cap(s) (COLACE) 100 mg ORAL BIDatorvastatin 40 mg tab(s) (LIPITOR) 40 mg ORAL/FEEDING TUBE AT BEDTIMEphenol 1 Evans (CHLORASEPTIC) 1 Evans MUCOUS MEMBRANE (TOPICAL MOUTH ANDTHROAT) q 2 [...] mg ORAL q 8 HHYDROmorphone 0.5 mg/mL FRET SAW OPERATOR CLINICIAN DOSE 0.2 mg 0.2 mg INTRAVENOUS q 6 HPRNinsulin lispro injection (rapid acting) (HumaLOG) SUBCUTANEOUS q 6 Hheparin 5,000 Units injection 5,000 Units SUBCUTANEOUS q 12 Hmetoclopramide HCl 10 mg injection (REGLAN) 10 mg INTRAVENOUS q 6 H PRN Normal [facility] Phosphoruson 10-03-2017 Phosphate 3.1 mg/dL Normal 2.5-4.5 [facility] Comment on above: Performed By: #### P T, PTT, AMYL, CMP, LIPA, PHOS ####[address] [phone]#### TRANSF ####[place] [address] [place], [place] [phone] Amylaseon 10-02-2017 Amylase 45 U/L Normal 0-137 [facility] Comment on above: Performed By: #### P T, PTT, AMYL, CMP, LIPA, PHOS ####[address] [phone]#### TRANSF ####[place] [phone] CASE MANAGEMon 10-02-2017 CASE MANAGEM HNO ID: [id number] thor: Lee Ann (Rn) Sveta RNService: Care ManagementAuthor Type: Registered NurseType: Care Mgt Progress NoteFiled: 10/02/2017 11:48 AMNote Text:CARE MANAGEMENT PROGRESS NOTESERVICE DATE: 10/02/2017SERVICE TIME: 11:44 AM LOS: 2 daysFREEDOM OF CHOICE GIVEN:Yes patientProvider List: Half-Way FacilityNeeds Prior to Discharge: Accepting FacilityTCC met with patient and sister Briana at bedside. Discussed PTrecommendations for acute rehab--[facility] closest [facility] that acceptis insurance, patient states wants to be closer to home-[facility] and states would prefer a SNF closer to home. Givenprovider list, patient and sister want to look over the list beforedeciding. CM will continue to assist with transition of care needs.SIGNATURE: Lee Ann Bangura RN PATIENT NAME: Rocio VizcarraTE: October 02, 2017 : 11:44 AM PAGER/CONTACT #: [phone] Normal [facility] CBCon 10-02-2017 Erythrocyte distribution width Auto Ratio (RBC) 16.2 % High 11.5-15.0 [facility] Comment on above: Performed By: #### P T, PTT, AMYL, CMP, LIPA, PHOS ####[place] [phone]#### TRANSF ####[place] [address] [place], [place] [phone] Erythrocytes (RBC) 3.38 10*6/uL Low 4.20-6.00 [facility] Comment on above: Performed By: #### P T, PTT, AMYL, CMP, LIPA, PHOS ####[address] [phone]#### TRANSF ####[address] [phone] Hematocrit (HCT) 26.4 % Low 39.0-51.0 [facility] Comment on above: Performed By: #### P T, PTT, AMYL, CMP, LIPA, PHOS ####[place] [address]#### TRANSF ####[address] [place] [phone] Hemoglobin mass conc (Bld) 8.6 g/dL Low 13.0-17.0 [facility] Comment on above: Performed By: #### P T, PTT, AMYL, CMP, LIPA, PHOS ####[place] [address]#### TRANSF ####[place] [address] MCH 25.4 pG Low 26.0-34.0 [facility] Comment on above: Performed By: #### P T, PTT, AMYL, CMP, LIPA, PHOS ####[place] [address]#### TRANSF ####[place] [address] MCHC mass conc (RBC) 32.6 g/dL Normal 30.5-36.0 [facility] Comment on above: Performed By: #### P T, PTT, AMYL, CMP, LIPA, PHOS ####[place] [address]#### TRANSF ####[place] [address] MCV 78.1 fL Low 80.0-100.0 [facility] Comment on above: Performed By: #### P T, PTT, AMYL, CMP, LIPA, PHOS ####[place] [address]#### TRANSF ####[place] [address] Platelet mean volume (PMV) 9.4 fL Normal 9.0-12.7 [facility] Comment on above: Performed By: #### P T, PTT, AMYL, CMP, LIPA, PHOS ####[place] [address]#### TRANSF ####[place] [address] Platelets 210 10*3/uL Normal 150-400 [facility] Comment on above: Performed By: #### P T, PTT, AMYL, CMP, LIPA, PHOS ####[place] [address]#### TRANSF ####[place] [address] WBC (Leukocytes) 6.15 10*3/uL Normal 3.70-11.00 [facility] Comment on above: Performed By: #### P T, PTT, AMYL, CMP, LIPA, PHOS ####[place] [address]#### TRANSF ####[place] [address] CBC and Differentialon 10-02 Abs Baso <0.03 Normal <0.11 [facility] Comment on above: Performed By: #### P T, PTT, AMYL, CMP, LIPA, PHOS ####[place] [address]#### TRANSF ####[place] [address] Abs Jerome 0.49 k/uL Normal <0.87 [facility] Comment on above: Performed By: #### P T, PTT, AMYL, CMP, LIPA, PHOS ####[place] [phone]#### TRANSF ####[place] [address] Abs Neut 4.18 k/uL Normal 1.45-7.50 [facility] Comment on above: Performed By: #### P T, PTT, AMYL, CMP, LIPA, PHOS ####[place] [address]#### TRANSF ####[address] [place] [phone] Basophils/100 WBC Auto (Bld) 0.2 % Normal [facility] Comment on above: Performed By: #### P T, PTT, AMYL, CMP, LIPA, PHOS ####[place] [address]#### TRANSF ####[place] [address] DTYPE Auto Diff Normal [facility] Comment on above: Performed By: #### P T, PTT, AMYL, CMP, LIPA, PHOS ####[place] [address]#### TRANSF ####[place] [address] Eosinophils 0.23 10*3/uL Normal <0.46 [facility] Comment on above: Performed By: #### P T, PTT, AMYL, CMP, LIPA, PHOS ####[place] [address]#### TRANSF ####[place] [address] Eosinophils/100 leukocytes 3.6 % Normal [facility] Comment on above: Performed By: #### P T, PTT, AMYL, CMP, LIPA, PHOS ####[place] [address]#### TRANSF ####[place] [address] Erythrocyte distribution width Auto Ratio (RBC) 16.6 % High 11.5-15.0 [facility] Comment on above: Performed By: #### P T, PTT, AMYL, CMP, LIPA, PHOS ####[place] [address]#### TRANSF ####[place] [address] Erythrocytes (RBC) 3.13 10*6/uL Low 4.20-6.00 [facility] Comment on above: Performed By: #### P T, PTT, AMYL, CMP, LIPA, PHOS ####[place] [address]#### TRANSF ####[place] [address] Hematocrit (HCT) 24.3 % Low 39.0-51.0 [facility] Comment on above: Performed By: #### P T, PTT, AMYL, CMP, LIPA, PHOS ####[place] [address]#### TRANSF ####[place] [address] Hemoglobin mass conc (Bld) 7.8 g/dL Low 13.0-17.0 [facility] Comment on above: Performed By: #### P T, PTT, AMYL, CMP, LIPA, PHOS ####[place] [address]#### TRANSF ####[place] [address] Lymphocytes 1.56 10*3/uL Normal 1.00-4.00 [facility] Comment on above: Performed By: #### P T, PTT, AMYL, CMP, LIPA, PHOS ####[place] [address]#### TRANSF ####[place] [address] Lymphocytes/100 leukocytes 24.1 % Normal [facility] Comment on above: Performed By: #### P T, PTT, AMYL, CMP, LIPA, PHOS ####[place] [address]#### TRANSF ####[place] [address] MCH 24.9 pG Low 26.0-34.0 [facility] Comment on above: Performed By: #### P T, PTT, AMYL, CMP, LIPA, PHOS ####[place] [address]#### TRANSF ####[place] [address] MCHC mass conc (RBC) 32.1 g/dL Normal 30.5-36.0 [facility] Comment on above: Performed By: #### P T, PTT, AMYL, CMP, LIPA, PHOS ####[place] [address]#### TRANSF ####[place] [address] MCV 77.6 fL Low 80.0-100.0 [facility] Comment on above: Performed By: #### P T, PTT, AMYL, CMP, LIPA, PHOS ####[place] [address]#### TRANSF ####[place] [address] Monocytes/100 leukocytes 7.6 % Normal [facility] Comment on above: Performed By: #### P T, PTT, AMYL, CMP, LIPA, PHOS ####[place] [address]#### TRANSF ####[place] [phone] Neutrophils/100 WBC Auto (Bld) 64.5 % Normal [facility] Comment on above: Performed By: #### P T, PTT, AMYL, CMP, LIPA, PHOS ####[place] [address]#### TRANSF ####[place] [phone] Platelet mean volume (PMV) 9.1 fL Normal 9.0-12.7 [facility] Comment on above: Performed By: #### P T, PTT, AMYL, CMP, LIPA, PHOS ####[place] [address]#### TRANSF ####[place] [phone] Platelets 207 10*3/uL Normal 150-400 [facility] Comment on above: Performed By: #### P T, PTT, AMYL, CMP, LIPA, PHOS ####[place] [address]#### TRANSF ####[place] [address] WBC (Leukocytes) 6.47 10*3/uL Normal 3.70-11.00 [facility] Comment on above: Performed By: #### P T, PTT, AMYL, CMP, LIPA, PHOS ####[place] [address]#### TRANSF ####[place] [phone] CONSULT PROGon 10-02-2017 CONSULT PROG HNO ID: [id number] thor: Matilda LiuService: AnesthesiologyAuthor Type: AnesthesiologistType: Consult Progress NoteFiled: 10/02/2017 9:33 AMNote Text:APS EPIDURAL CATHETER PROGRESS NOTESERVICE DATE: 10/02/2017SERVICE TIME: 9:27 AMPRIMARY SERVICE: HBSSubjectiveINTERVAL HPI:Rocio Jackson is a 62 year old male who is POD #2 S/P WhipplePatient also has an IV FRET SAW OPERATOR: NoIV Line Appears Intact YesPain at Surgical [...] Placed: Day of surgeryMEDICATIONS:I have interrogated the FRET SAW OPERATOR pump(s) for the correct settings and solution:Yes.EPIDURAL MEDICATIONS AND FRET SAW OPERATOR SETTINGS: Other: bupivicaine + hydromorphoneBasal Rate: 4 mL/hr.Patient Demand Bolus: 3 mL.Lockout Interval: 15 Minutes.Additional Medication(s) GIven: See BelowAnticoagulation Therapy: noneCurrent hospital medications:magnesium sulfate in water 2 g in sterile water 50 ml 2 g INTRAVENOUS ONCEsodium phosphate 15 mmol in D5W 250 mL 15 mmol INTRAVENOUS ONCEdocusate sodium 100 mg cap(s) (COLACE) 100 mg ORAL BIDphenol 1 Evans (CHLORASEPTIC) 1 Evans MUCOUS MEMBRANE (TOPICAL MOUTH ANDTHROAT) q 2 [...] (MOTRIN) 800 mg ORAL q 8 HHYDROmorphone FRET SAW OPERATOR 0.5 mg/mL in NaCl 0.9% 100 mL INTRAVENOUS CONTINUOUSHYDROmorphone 0.5 mg/mL FRET SAW OPERATOR CLINICIAN DOSE 0.2-0.4 mg 0.2-0.4 mgINTRAVENOUS (PACU) PRNHYDROmorphone 0.5 mg/mL FRET SAW OPERATOR CLINICIAN DOSE 0.2 mg 0.2 mg INTRAVENOUS q 6 HPRNinsulin lispro injection (rapid acting) (HumaLOG) SUBCUTANEOUS q 6 Hheparin 5,000 Units injection 5,000 Units SUBCUTANEOUS q 12 Hmetoclopramide HCl 10 mg injection (REGLAN) 10 mg INTRAVENOUS q 6 H PRNPHYSICAL EXAM:Patient Vitals for the past 4 hrs: BP Temp Temp src Pulse Resp SpO2 Svuvvs70/06/18 0800 134/79 36.7 ?C (98 ?F) Oral [...] HPI above. Pain wellcontrolled with current epidural FRET SAW OPERATOR.Assessment: Pain adequately controlled.Patient satisfied with analgesic regimen..Plan of Care: Continue epidural analgesia to promote comfort, mobility,and pulmonary toilet.Plan to start roxicodone tomorrow once the patient continue to tolerateenteral nutrition and hold epidural catheter.SIGNATURE: Matilda Raya MD PATIENT NAME: Rocio JacksonDATE: October 02, 2017 : 9:27 AM PAGER/CONTACT #: Normal [facility] Comp Metabolic Panelon 10-02 Alanine aminotransferase (ALT) 27 U/L Normal 5-50 [facility] Comment on above: Performed By: #### P T, PTT, AMYL, CMP, LIPA, PHOS ####[facility] [place], [place] [phone]#### TRANSF ####[facility] [place], [place] [phone] Albumin 2.5 g/dL Low 3.5-5.0 [facility] Comment on above: Performed By: #### P T, PTT, AMYL, CMP, LIPA, PHOS ####[place] [address]#### TRANSF ####[place] [address] Alkaline phosphatase (ALP) 68 U/L Normal 40-150 [facility] Comment on above: Performed By: #### P T, PTT, AMYL, CMP, LIPA, PHOS ####[place] [address]#### TRANSF ####[place] [address] Anion gap 6 mmol/L Low 9-18 [facility] Comment on above: Performed By: #### P T, PTT, AMYL, CMP, LIPA, PHOS ####[place] [address]#### TRANSF ####[place] [address] Aspartate aminotransferase (AST) 23 U/L Normal 7-40 [facility] Comment on above: Performed By: #### P T, PTT, AMYL, CMP, LIPA, PHOS ####[place] [address]#### TRANSF ####[place] [address] Bilirubin (total) 0.3 mg/dL Normal 0.0-1.5 [facility] Comment on above: Performed By: #### P T, PTT, AMYL, CMP, LIPA, PHOS ####[place] [address]#### TRANSF ####[address] [address] Calcium 8.3 mg/dL Low 8.5-10.5 [facility] Comment on above: Performed By: #### P T, PTT, AMYL, CMP, LIPA, PHOS ####[place] [address]#### TRANSF ####[place] [address] Chloride 103 mmol/L Normal 98-110 [facility] Comment on above: Performed By: #### P T, PTT, AMYL, CMP, LIPA, PHOS ####[place] [address]#### TRANSF ####[place] [address] CO2 26 mmol/L Normal 23-32 [facility] Comment on above: Performed By: #### P T, PTT, AMYL, CMP, LIPA, PHOS ####[place] [address]#### TRANSF ####[place] [address] Creatinine 0.64 mg/dL Low 0.70-1.40 [facility] Comment on above: Performed By: #### P T, PTT, AMYL, CMP, LIPA, PHOS ####[place] [address]#### TRANSF ####[place] [address] eGFR (non-black) mL/min/{1.73_m2} Normal >60 [facility] Comment on above: Performed By: #### P T, PTT, AMYL, CMP, LIPA, PHOS ####[place] [address]#### TRANSF ####[place] [address] Glucose mass conc 154 mg/dL High 65-100 [facility] Comment on above: Performed By: #### P T, PTT, AMYL, CMP, LIPA, PHOS ####[place] [address]#### TRANSF ####[place] [address] Potassium molar conc 4.2 mmol/L Normal 3.5-5.0 [facility] Comment on above: Performed By: #### P T, PTT, AMYL, CMP, LIPA, PHOS ####[place] [address]#### TRANSF ####[place] [address] Protein 5.3 g/dL Low 6.0-8.4 [facility] Comment on above: Performed By: #### P T, PTT, AMYL, CMP, LIPA, PHOS ####[place] [address]#### TRANSF ####[place] [address] Sodium 135 mmol/L Normal 135-146 [facility] Comment on above: Performed By: #### P T, PTT, AMYL, CMP, LIPA, PHOS ####[place] [address]#### TRANSF ####[place] [address] Urea nitrogen 22 mg/dL Normal 10-25 [facility] Comment on above: Performed By: #### P T, PTT, AMYL, CMP, LIPA, PHOS ####[place] [address]#### TRANSF ####[place] [address] Magnesiumon 10-02-2017 Magnesium 1.9 mg/dL Normal 1.7-2.6 [facility] Comment on above: Performed By: #### P T, PTT, AMYL, CMP, LIPA, PHOS ####[facility] [place], [place] [phone]#### TRANSF ####[facility] [place], [place] [phone] NURSING PROGon 10-02-2017 NURSING PROG HNO ID: [id number] thor: Luis (Rn) Clayton Salinasice: (none)Author Type: Registered NurseType: Nursing Progress NoteFiled: 10/02/2017 6:43 PMNote Text: Nursing Progress NotePatient Name: Rocio HayesN: [id number] [facility] ____Daily Note:1600: [place] [facility]. Pt sitting in chair.Blood transfusion infusing well without difficulty. Nurse emptied JPdrains x2, see IANDO. Pt states he has no pain at this time. Pt has abuprivacaine-hydromorphone epidural. Epidural control in hand. Willmonitor, call light in reach.1833: blood transfusion completed. Pt tolerated well.This note was completed by: Luis Salinas RN [facility] NURSING PROG HNO ID: [id number] thor: Sabrina (Rn) MOUSTAPHA Cornejoervice: NursingAuthor Type: Registered NurseType: Nursing Progress NoteFiled: 10/02/2017 2:48 PMNote Text: Nursing Progress NotePatient Name: Rocio JacksonN: [id number] Location[facility]/QY-OBU-57 ___Daily Note:0700 bedside report received from FRANSICO Valerio. Gtt checked.Patient [id number] patient assessed see [id number] OT at bedside assessing patient.[id number] patient walked with a walker and OT 1 [id number] patient tolerates chair 1 assist up to stand and march in [id number] called report to [id number] note was completed by: Sabrina Cornejo RN [facility] PROGRESSon 10-02-2017 PROGRESS HNO ID: [id number] thor: Rick Diaze: Critical CareAuthor Type: PhysicianType: [...] discussed with ICU Staff Dr. Boothe.Kolby Brown MDGeneral Surgery[C]: [phone] [P]: [id number]: 10/02/2017Time: 10:32 AMSubjective:Interval Events: NAEON. TFs at goal.Physical Exam:BP 134/79 Pulse 88 Temp 36.7 ?C (98 ?F) (Oral) Resp 19 Ht 172.7 cm(5' 7.99 ) Wt 88.8 kg (195 lb 12.3 oz) SpO2 98% BMI 29.77 kg/c3BGCYRPB: Well appearing 62 year old male in no distressNEURO: AAOx3, CUS98MTLDX: Atraumatic, corpak in palceCHEST: nonlabored breathing on RA. NL rate and rhythmABDOMEN: Soft, non-distended, mildly tenderEXTREMITIES: Warm well perfused, no deformitiesLabs:CBC, BMP, MG, PHOSRecent Labs 0 845 326 100 09/24/1808435WBC 6.47 -- 8.38 8.24 7.14 7.49 4.87HB [...] 10/02/17 0659 10/02/17 07 - 10/03/17 0659Shift 9242-2453 0493-7144 4586-5088 24 Hour Total 7569-2057 5293-83298696-4767 24 Hour TotalINTAKE PO 0 97 482 [...] 2886 601.6 3637.6 60 60OUTPUT Urine 310 110 754 0476 75 75 Tube Output ( Indwelling Urinary Catheter 09/30/17 0909 Mancilla 16Fr) 310 906 120 7329 75 75 Tubes 70 135 35 240 [...] BM (mL) 0 0 Shift Total 380 097 581 3957 75 75Weight (kg) 81.1 81.1 88.8 88.8 88.8 88.8 88.8 88.8Current Medications:Current hospital medications:magnesium sulfate in water 2 g in sterile water 50 ml 2 g INTRAVENOUS ONCEsodium phosphate 15 mmol in D5W 250 mL 15 mmol INTRAVENOUS ONCEdocusate sodium 100 mg cap(s) (COLACE) 100 mg ORAL BIDphenol 1 Evans (CHLORASEPTIC) 1 Evans MUCOUS MEMBRANE (TOPICAL MOUTH ANDTHROAT) q 2 [...] (MOTRIN) 800 mg ORAL q 8 HHYDROmorphone FRET SAW OPERATOR 0.5 mg/mL in NaCl 0.9% 100 mL INTRAVENOUS CONTINUOUSHYDROmorphone 0.5 mg/mL FRET SAW OPERATOR CLINICIAN DOSE 0.2-0.4 mg 0.2-0.4 mgINTRAVENOUS (PACU) PRNHYDROmorphone 0.5 mg/mL FRET SAW OPERATOR CLINICIAN DOSE 0.2 mg 0.2 mg INTRAVENOUS [...] 5 mg tab Take by mouth once daily.[facility] [place] STAFF PHYSICIAN SUPERVISING RESIDENTI have reviewed the [...] of SERVICE: 10/02/2017TIME of SERVICE: 12:44 PM [facility] PROGRESS HNO ID: [id number] thor: Michael Cedillo) AugustinService: General SurgeryAuthor Type: [...] that 2pm- IPCs, SQH- anticipate transfer to [facility] to be discussed with staffSubjective:No acute events overnight. Tolerated sips of liquids no n/v. No flatus orBM.Physical Exam:BP 134/79 Pulse 88 Temp 36.7 ?C (98 ?F) (Oral) Resp 19 Ht 172.7 cm(5' 7.99 ) Wt 88.8 kg (195 lb 12.3 oz) SpO2 98% BMI 29.77 kg/x9VSHFXNJ: no acute distressABDOMEN: soft, diffusely tender, nondistended. Incision c/d/i. Foleydraining yellow-red urine. Both JPs with serosanguinous fluid.Labs:CBC, BMP, MG, PHOSRecent Labs 10/01/1817100 09/24/1808WBC 6.47 -- 8.38 8.24 7.14 7.49 4.87HB [...] 10/02/17 0659 10/02/17 07 - 10/03/17 0659Shift 1582-7203 2003-2540 9267-3660 24 Hour Total 4924-2303 7570-22177573-7632 24 Hour TotalINTAKE PO 0 97 482 [...] 2886 601.6 3637.6 60 60OUTPUT Urine 310 548 855 5750 75 75 Tube Output ( Indwelling Urinary Catheter 09/30/17 0909 Mancilla 16Fr) 310 564 664 7125 75 75 Tubes 70 135 35 240 [...] BM (mL) 0 0 Shift Total 380 597 817 7647 75 75Weight (kg) 81.1 81.1 88.8 88.8 88.8 88.8 88.8 88.8Current Medications:Current hospital medications:magnesium sulfate in water 2 g in sterile water 50 ml 2 g INTRAVENOUS ONCEsodium phosphate 15 mmol in D5W 250 mL 15 mmol INTRAVENOUS ONCEdocusate sodium 100 mg cap(s) (COLACE) 100 mg ORAL BIDphenol 1 Evans (CHLORASEPTIC) 1 Evans MUCOUS MEMBRANE (TOPICAL MOUTH ANDTHROAT) q 2 [...] (MOTRIN) 800 mg ORAL q 8 HHYDROmorphone FRET SAW OPERATOR 0.5 mg/mL in NaCl 0.9% 100 mL INTRAVENOUS CONTINUOUSHYDROmorphone 0.5 mg/mL FRET SAW OPERATOR CLINICIAN DOSE 0.2-0.4 mg 0.2-0.4 mgINTRAVENOUS (PACU) PRNHYDROmorphone 0.5 mg/mL FRET SAW OPERATOR CLINICIAN DOSE 0.2 mg 0.2 mg INTRAVENOUS q 6 HPRNinsulin lispro injection (rapid acting) (HumaLOG) SUBCUTANEOUS q 6 Hheparin 5,000 Units injection 5,000 Units SUBCUTANEOUS q 12 Hmetoclopramide HCl 10 mg injection (REGLAN) 10 mg INTRAVENOUS q 6 H PRNSignature: Jennifer Adan, MDDate: October 02, 2017Time: 9:55 AMPatient Name: Rocio Boudreaux: [phone]*Please page the front man pager from 6pm-6am and all day on weekends* Normal [facility] Phosphoruson 10-02-2017 Phosphate 2.3 mg/dL Low 2.5-4.5 [facility] Comment on above: Performed By: #### P T, PTT, AMYL, CMP, LIPA, PHOS ####[facility] [place], [place] [phone]#### TRANSF ####[facility] [address] [place], [place] [phone] THERAPY NTon 10-02-2017 THERAPY NT HNO ID: [id number] thor: Jacqueline (Ot) HallService: Occupational TherapyAuthor Type: Occupational TherapistType: Therapy (PT/OT/Speech/Resp)Filed: 10/02/2017 8:55 AMNote Text:Occupational Therapy EvaluationSERVICE DATE: 10/02/2017SERVICE TIME: 0820 to 0843ROOM: [id number] Discharge Disposition: Acute RehabJustification For Post Acute [...] Pt?s pertinent PMH includes: DM, HTN,CAD, glaucoma, GA, cholecystectomy c/b leak found to have duodenal [...] Involving Cognitive Functions andAwarenessInterventions Provided: Evaluation;Therapeutic Activity (03032)$ Evaluation-Low (74944) Billed Units: 1 unitTherapeutic Activity (40327) Treatment Minutes: 81 unitSkilled Intervention(s): Instructed patient [...] has assist with all IADLs. Works in [employer]OBJECTIVE:Orientation Deficits: ConfusedResponsiveness: AwakeFollows Commands: 2-step [...] RE: Jacqueline Arshad OTR/L PATIENT NAME: Rocio TorresKandisTE: October 02, 2017 : 8:50 AM PAGER: [phone] Normal [facility] Type and Screenon 10-02-2017 ABO/RH(D) Positive [facility] Comment on above: Performed By: #### P T, PTT, AMYL, CMP, LIPA, PHOS ####[place] [phone]#### TRANSF ####[place] [address] Antibody Screen Negative [facility] Comment on above: Performed By: #### P T, PTT, AMYL, CMP, LIPA, PHOS ####[place] [address]#### TRANSF ####[place] [address] Amylaseon 10-01-2017 Amylase 151 U/L High 0-137 [facility] Comment on above: Performed By: #### P T, PTT, AMYL, CMP, LIPA, PHOS ####[address], [place] [phone]#### TRANSF ####[facility] [address] [place], [place] [phone] Amylase,Body Fluidon 018 Amylase 817 U/L Critically abnormal See Comment [facility] Comment on above: Result Comment: (NOT E)PLEURAL [...] interpreted along with other clinical and laboratoryinformation.References:1. Blilie FRITZ, Ian Diaz. Body fluid analysis: clinicalutility and applicability of published studies to guideinterpretation of todays laboratory testing in serous fluids. CritRev Clin Lab Sci, 2013;50(4-5):107-124.2. CLSI. Analysis of Body Fluids in Clinical Chemistry; ApprovedGuideline. CLSI document C49-A. SAIMA Contreras: Clinical LaboratoryStandards [place]; 2007.3. Kya EDUARDO, Angelia SANCHEZ, Nimo DJ. Use of cyst fluid CEA,CA19-9, and amylase for evaluation of pancreatic lesions. ClinicalBiochemistry. 2009;42:1534-6561.This test was developed and its performance characteristicsdetermined by [facility] [place] ([facility]).It has not been cleared or approved by the FDA. -[facility] is regulatedunder CLIA as qualified to perform high-complexity testing.This test is used for clinical purposes. It should not be regarded asinvestigational or for research. Performed By: #### P T, PTT, AMYL, CMP, LIPA, PHOS ####[facility] [place], [place] [phone]#### TRANSF ####[facility] [address] [place], [place] [phone] Amylase 1954 U/L Critically abnormal See Comment [facility] Comment on above: Result Comment: (NOT E)PLEURAL [...] CLSI document C49-A. SAIMA Contreras: Clinical LaboratoryStandards [place]; 2007.3. Kya EDUARDO, Angelia RC, Nimo DJ. Use of cyst fluid CEA,CA19-9, and amylase for evaluation of pancreatic lesions. ClinicalBiochemistry. 2009;42:5548-2014.This test was developed and its performance characteristicsdetermined by [facility] [place] ([facility]).It has not been cleared or approved by the FDA. [facility] is regulatedunder CLIA as qualified to perform high-complexity testing.This test is used for clinical purposes. It should not be regarded asinvestigational or for research. Performed By: #### P T, PTT, AMYL, CMP, LIPA, PHOS ####[facility] [place], [place] [phone]#### TRANSF ####[place] [phone] Fluid Type Peritoneal Fluid Normal [facility] Comment on above: Performed By: #### P T, PTT, AMYL, CMP, LIPA, PHOS ####[place] [id number] [phone]#### TRANSF ####[place] [phone] Result Comment: LEFT CASE MGT INIT SANDRAon 2017 CASE MGT INIT SANDRA HNO ID: [id number] thor: Catherine Humphries (Rn) Leeann RNService: Case ManagementAuthor Type: Registered NurseType: Care Mgt Initial AssessmentFiled: 10/01/2017 12:22 PMNote Text:CARE MANAGEMENT: ASSESSMENT AND DISCHARGE PLANSERVICE DATE: 10/01/2017SERVICE TIME: 11:13 [facility]PR[facility]HEL[facility] C[facility] PHYSICIAN:Adriane Nichols, DOPhone: JDPZMADLA STATUS: InpatientNeeds Prior to Discharge: To Be Determined;OT/PT EvaluationMEDICAL:Patient/Re presentative Stated Goals:To improve my functional statusTo return home to life as it wasHealth Insurance:[facility] Issues Impacting Discharge Plan: DM, HTNLast [...] Agency: [facility]; ; Active.Equipment Prior to Admission: Tub bench/chairWalkerHas the Patient Been in a Half-Way Facility in the Past 30 days?Yes. Where and Dates: [facility] in [place] FGRJQP:Emily ing Arrangement: HomeLives With: Sister since his discharge from [facility] in August of 2017.Financial Resources: Patient is employedPrimary Contact: Extended Emergency Contact InformationPrimary Emergency Contact: Bladimir Mullerress: [address] [place], [place] [address]Xqpn Qdsuazjc: SiblingSupportive: YesOther Important Patient Contacts: NoneCaregiver Assessment:Caregiver [...] - 0I feel financially burdened by my xcs-ww-xzndmc expenses for myprescription medication: Disagree mostly -0Patient [...] OF CHOICE EXPLAINED:Yes on 10/01/17POTENTIAL TRANSITION PLANSHome [facility]/Intermediate Care FacilityCM met with patient at bedside. His two sisters were in the room at thetime, and patient approved their staying in the room during theassessment. 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 He currently lives with his sister who ishelping with his care since his discharge from [facility] in August. He is active with [facility], and stated he washappy with their services. Patient will need a PT/OT evaluation todetermine skilled/safety needs. CM will continue to follow plan of care toassist with discharge planning.SIGNATURE: Catherine Bradshaw RN PATIENT NAME: Rocio JacksonDATE: October 01, 2017 : 11:13 AM PAGER/CONTACT #: [phone] Normal [facility] CBC and Differentialon 10-01 Abs Baso <0.03 Normal <0.11 [facility] Comment on above: Performed By: #### P T, PTT, AMYL, CMP, LIPA, PHOS ####[place] [address]#### TRANSF ####[place] [phone] Abs Jerome 0.60 k/uL Normal <0.87 [facility] Comment on above: Performed By: #### P T, PTT, AMYL, CMP, LIPA, PHOS ####[place] [address]#### TRANSF ####[place] [address] Abs Neut 5.57 k/uL Normal 1.45-7.50 [facility] Comment on above: Performed By: #### P T, PTT, AMYL, CMP, LIPA, PHOS ####[place] [address]#### TRANSF ####[place] [address] Basophils/100 WBC Auto (Bld) 0.0 % Normal [facility] Comment on above: Performed By: #### P T, PTT, AMYL, CMP, LIPA, PHOS ####[place] [address]#### TRANSF ####[address] AvSel[place] [phone] DTYPE Auto Diff Normal [facility] Comment on above: Performed By: #### P T, PTT, AMYL, CMP, LIPA, PHOS ####[place] [address]#### TRANSF ####[address] [place] [phone] Eosinophils 10*3/uL Normal <0.46 [facility] Comment on above: Performed By: #### P T, PTT, AMYL, CMP, LIPA, PHOS ####[place] [address]#### TRANSF ####[place] [address] Eosinophils/100 leukocytes 0.0 % Normal [facility] Comment on above: Performed By: #### P T, PTT, AMYL, CMP, LIPA, PHOS ####[place] [address]#### TRANSF ####[place] [address] Erythrocyte distribution width Auto Ratio (RBC) 16.4 % High 11.5-15.0 [facility] Comment on above: Performed By: #### P T, PTT, AMYL, CMP, LIPA, PHOS ####[place] [address]#### TRANSF ####[place] [address] Erythrocytes (RBC) 3.53 10*6/uL Low 4.20-6.00 [facility] Comment on above: Performed By: #### P T, PTT, AMYL, CMP, LIPA, PHOS ####[place] [address]#### TRANSF ####[place] [address] Hematocrit (HCT) 27.4 % Low 39.0-51.0 [facility] Comment on above: Performed By: #### P T, PTT, AMYL, CMP, LIPA, PHOS ####[place] [address]#### TRANSF ####[place] [address] Hemoglobin mass conc (Bld) 8.8 g/dL Low 13.0-17.0 [facility] Comment on above: Performed By: #### P T, PTT, AMYL, CMP, LIPA, PHOS ####[place] [address]#### TRANSF ####[place] [address] Lymphocytes 2.21 10*3/uL Normal 1.00-4.00 [facility] Comment on above: Performed By: #### P T, PTT, AMYL, CMP, LIPA, PHOS ####[place] [address]#### TRANSF ####[place] [address] Lymphocytes/100 leukocytes 26.4 % Normal [facility] Comment on above: Performed By: #### P T, PTT, AMYL, CMP, LIPA, PHOS ####[place] [address]#### TRANSF ####[place] [address] MCH 24.9 pG Low 26.0-34.0 [facility] Comment on above: Performed By: #### P T, PTT, AMYL, CMP, LIPA, PHOS ####[place] [address]#### TRANSF ####[place] [address] MCHC mass conc (RBC) 32.1 g/dL Normal 30.5-36.0 [facility] Comment on above: Performed By: #### P T, PTT, AMYL, CMP, LIPA, PHOS ####[place] [address]#### TRANSF ####[place] [address] MCV 77.6 fL Low 80.0-100.0 [facility] Comment on above: Performed By: #### P T, PTT, AMYL, CMP, LIPA, PHOS ####[place] [address]#### TRANSF ####[place] [address] Monocytes/100 leukocytes 7.2 % Normal [facility] Comment on above: Performed By: #### P T, PTT, AMYL, CMP, LIPA, PHOS ####[place] [address]#### TRANSF ####[place] [address] Neutrophils/100 WBC Auto (Bld) 66.4 % Normal [facility] Comment on above: Performed By: #### P T, PTT, AMYL, CMP, LIPA, PHOS ####[place] [address]#### TRANSF ####[place] [address] Platelet mean volume (PMV) 9.7 fL Normal 9.0-12.7 [facility] Comment on above: Performed By: #### P T, PTT, AMYL, CMP, LIPA, PHOS ####[address] [phone]#### TRANSF ####[address] [phone] Platelets 230 10*3/uL Normal 150-400 [facility] Comment on above: Performed By: #### P T, PTT, AMYL, CMP, LIPA, PHOS ####[place] [address]#### TRANSF ####[address] [phone] WBC (Leukocytes) 8.38 10*3/uL Normal 3.70-11.00 [facility] Comment on above: Performed By: #### P T, PTT, AMYL, CMP, LIPA, PHOS ####[place] [address]#### TRANSF ####[address] [phone] CONSULT PROGon 10-01-2017 CONSULT PROG HNO ID: [id number] thor: Matilda Malloy: Pain ManagementAuthor Type: AnesthesiologistType: [...] catheter placed: Day of surgeryMEDICATIONS:Epidural Medications and FRET SAW OPERATOR SettingsBupivacaine 0.1% + DilaudidBasal rate: 6 mL/hr.Patient Demand Bolus: 3 mL.Lockout interval: 4 minutes.Additional medication(s) given: See belowAnticoagulation therapy: Lovenox 40 mgLast Dose given: due at [address] [place] [address] medications:magnesium sulfate in sterile water 4 g [...] (MOTRIN) 800 mg ORAL q 8 HHYDROmorphone FRET SAW OPERATOR 0.5 mg/mL in NaCl 0.9% 100 mL INTRAVENOUS CONTINUOUSHYDROmorphone 0.5 mg/mL FRET SAW OPERATOR CLINICIAN DOSE 0.2-0.4 mg 0.2-0.4 mgINTRAVENOUS (PACU) PRNHYDROmorphone 0.5 mg/mL FRET SAW OPERATOR CLINICIAN DOSE 0.2 mg 0.2 mg INTRAVENOUS q 6 HPRNinsulin lispro injection (rapid acting) (HumaLOG) SUBCUTANEOUS q 6 Hheparin 5,000 Units injection 5,000 Units SUBCUTANEOUS q 12 Henoxaparin 40 mg injection (LOVENOX) 40 mg SUBCUTANEOUS DAILYmetoclopramide HCl 10 mg injection (REGLAN) 10 mg INTRAVENOUS q 6 H PRNPHYSICAL EXAM:Patient Vitals for the past 8 hrs: Temp Temp src Pulse Resp SpO2 Height Ztjhit68/05/18 0700 - - 87 17 97 % [...] 01, 2017 : 8:47 AM PAGER/CONTACT #: [facility] [phone] Normal [facility] Comp Metabolic Panelon 10-01 Alanine aminotransferase (ALT) 35 U/L Normal 5-50 [facility] Comment on above: Performed By: #### P T, PTT, AMYL, CMP, LIPA, PHOS ####[facility] [place], [place] [phone]#### TRANSF ####[facility] [place], [place] [phone] Albumin 2.6 g/dL Low 3.5-5.0 [facility] Comment on above: Result Comment: Revi ewed Performed By: #### P T, PTT, AMYL, CMP, LIPA, PHOS ####[place] [address]#### TRANSF ####[place] [address] Alkaline phosphatase (ALP) 70 U/L Normal 40-150 [facility] Comment on above: Performed By: #### P T, PTT, AMYL, CMP, LIPA, PHOS ####[place] [address]#### TRANSF ####[place] [address] Anion gap 12 mmol/L Normal 9-18 [facility] Comment on above: Performed By: #### P T, PTT, AMYL, CMP, LIPA, PHOS ####[place] [address]#### TRANSF ####[place] [address] Aspartate aminotransferase (AST) 32 U/L Normal 7-40 [facility] Comment on above: Performed By: #### P T, PTT, AMYL, CMP, LIPA, PHOS ####[place] [address]#### TRANSF ####[place] [address] Bilirubin (total) 0.3 mg/dL Normal 0.0-1.5 [facility] Comment on above: Performed By: #### P T, PTT, AMYL, CMP, LIPA, PHOS ####[place] [address]#### TRANSF ####[place] [address] Calcium 7.7 mg/dL Low 8.5-10.5 [facility] Comment on above: Performed By: #### P T, PTT, AMYL, CMP, LIPA, PHOS ####[place] [address]#### TRANSF ####[place] [address] Chloride 105 mmol/L Normal 98-110 [facility] Comment on above: Performed By: #### P T, PTT, AMYL, CMP, LIPA, PHOS ####[place] [address]#### TRANSF ####[place] [address] CO2 23 mmol/L Normal 23-32 [facility] Comment on above: Performed By: #### P T, PTT, AMYL, CMP, LIPA, PHOS ####[place] [address]#### TRANSF ####[place] [address] Creatinine 0.78 mg/dL Normal 0.70-1.40 [facility] Comment on above: Performed By: #### P T, PTT, AMYL, CMP, LIPA, PHOS ####[place] [address]#### TRANSF ####[place] [address] eGFR (non-black) mL/min/{1.73_m2} Normal >60 [facility] Comment on above: Performed By: #### P T, PTT, AMYL, CMP, LIPA, PHOS ####[place] [address]#### TRANSF ####[place] [address] Glucose mass conc 145 mg/dL High 65-100 [facility] Comment on above: Performed By: #### P T, PTT, AMYL, CMP, LIPA, PHOS ####[place] [address]#### TRANSF ####[place] [address] Potassium molar conc 4.8 mmol/L Normal 3.5-5.0 [facility] Comment on above: Performed By: #### P T, PTT, AMYL, CMP, LIPA, PHOS ####[place] [address]#### TRANSF ####[place] [address] Protein 5.1 g/dL Low 6.0-8.4 [facility] Comment on above: Performed By: #### P T, PTT, AMYL, CMP, LIPA, PHOS ####[place] [address]#### TRANSF ####[place] [address] Sodium 140 mmol/L Normal 135-146 [facility] Comment on above: Performed By: #### P T, PTT, AMYL, CMP, LIPA, PHOS ####[place] [address]#### TRANSF ####[place] [address] Urea nitrogen 20 mg/dL Normal 10-25 [facility] Comment on above: Performed By: #### P T, PTT, AMYL, CMP, LIPA, PHOS ####[place] [address]#### TRANSF ####[place] [address] HISTORY PHYSICALon 8 HISTORY PHYSICAL HNO ID: [id number] thor: Pretty (Fel) KrystinarykService: Critical CareAuthor Type: ResidentType: HANDPFiled: 10/01/2017 [...] Date- ANGIOPLASTY HX 05/15/2011 2 stents s/p [place];[facility]- CHOLECYSTECTOMY 08/11/2017 [facility]- PICC LINE INSERT/CONSULT 08/16/2017No family history [...] 110/88 CVP: 2 Resp: 18 SpO2: 100 %Schoenchen Vani Readings: Not applicableRESPIRATORYMechani rachid Ventilation: No. Supplemental Oxygen: Yes. 2 L NCRecent Labs 09/30/511648VSNR 2.3*PHYSICAL EXAMNeuro: AwakePulmonary: Clear to auscultation. Breath [...] (TORADOL) 15 mg INTRAVENOUS q 6 HHYDROmorphone FRET SAW OPERATOR 0.5 mg/mL in NaCl 0.9% 100 mL INTRAVENOUS CONTINUOUSHYDROmorphone 0.5 mg/mL FRET SAW OPERATOR CLINICIAN DOSE 0.2-0.4 mg 0.2-0.4 mgINTRAVENOUS (PACU) PRNHYDROmorphone 0.5 mg/mL FRET SAW OPERATOR CLINICIAN DOSE 0.2 mg 0.2 mg INTRAVENOUS [...] staff: Dr. Junior: epidural in place, Hydromorphone FRET SAW OPERATOR, ToradolCV: Intermittent hypotension, no vasopressor requiredPulm: CTA [...] De Jesus Barton MD PATIENT NAME: Rocio VizcarraTE: October 01, 2017 : 5:54 AM PAGER/CONTACT #: [phone] Normal [facility] Magnesiumon 10-01-2017 Magnesium 2.1 mg/dL Normal 1.7-2.6 [facility] Comment on above: Performed By: #### P T, PTT, AMYL, CMP, LIPA, PHOS ####[place] [address]#### TRANSF ####[place] [address] Magnesium 1.3 mg/dL Low 1.7-2.6 [facility] Comment on above: Performed By: #### P T, PTT, AMYL, CMP, LIPA, PHOS ####[place] [address]#### TRANSF ####[facility] [address] [place] [phone] NURSING PROGon 10-01-2017 NURSING PROG HNO ID: [id number] thor: Cee (Rn) MOUSTAPHA Dialervice: (none)Author Type: Registered NurseType: Nursing Progress NoteFiled: 10/01/2017 7:58 PMNote Text: Nursing Progress NotePatient Name: Rocio JacksonMRN: [id number] Location: [facility]/GV-HGU-86 ___Daily Note:1900: Bedside report received from previous shift RN.This note was completed by: Cee Dial RN [facility] NURSING PROG HNO ID: [id number] thor: Marysol (Rn) MOUSTAPHA Agervice: Critical CareAuthor Type: Registered NurseType: Nursing Progress NoteFiled: 10/01/2017 1:35 PMNote Text: Nursing Progress NotePatient Name: Rocio JacksonMRN: [id number] Location: [facility]/HM-UOX-33 ___Daily Note:0715-bedside report received from Reed BATEMAN.0720- surgical team at bedside to assess patient. 1 L LR bolus ordered forhypotension.1125- Dr. Raya text paged SICU 7 D.F.-- Patient's SBP continues to remainlow after 2 fluid boluses, Dr. Boothe asked that I page pain management tosee if it would be appropriate to decrease the basal rate on his epidural.Thank you, Laura RN [phone] . Dr. Raya returned page, will place order todecrease basal rate of epidural to 4cc/hr.1330- Dr. Brown text paged SICU 7 D.F.-- patient's urine output has aqbn35lc/hr x2 hours. Blood pressure has improved, we decreased the basal rateof his epidural. Also, he would like throat spray, his throat is sore.Thank you, Laura BATEMAN [phone] This note was completed by: Marysol Ag, RN [facility] NURSING PROG HNO ID: [id number] thor: Radha Ndiaye NsService: (none)Author Type: (none)Type: Nursing Progress NoteFiled: 10/01/2017 6:01 AMNote Text: Nursing Progress NotePatient Name: Rocio Boudreaux: [id number] Location: [place] [address]/[id number] ___Daily Note:1909- Report complete. VSS on 6L [...] changes, see flowsheet.Labs and amylase drawn and [id number]- MD notified of low magnesium level, waiting for mag replacement tocome up from [id number]- Report given to day shift nurseThis note was completed by: Reed Rincon RN [facility] NUTRITIONon 10-01-2017 NUTRITION HNO ID: [id number] thor: Bailey TrippService: Nutrition TherapyAuthor Type: Registered DietitianType: NutritionFiled: 10/01/2017 [...] mass 09/30, who was admitted to the [facility] further care.Present Diet Order: NPO and [...] 81 kgResting Metabolic Rate: 1599Estimated kilocalorie needs: 4535-2253 kilocalories determined by 20-25kcal/kgEstimated protein needs: 105-138 grams determined by 1.3-1.7 g/kg DosingweightEstimated fluid needs: 6297-7881 milliliters based on 1 mL per kcalNUTRITION [...] lb 12.7 oz) SpO2 95% BMI 27.19 kg/s9Xkwdru Labs 185357LGEP 145*BUN 20CREAT 0.78NA 140K 4.8CHLOR 105CO2 23ALB [...] (TORADOL) 15 mg INTRAVENOUS q 6 HHYDROmorphone FRET SAW OPERATOR 0.5 mg/mL in NaCl 0.9% 100 mL INTRAVENOUS CONTINUOUSHYDROmorphone 0.5 mg/mL FRET SAW OPERATOR CLINICIAN DOSE 0.2-0.4 mg 0.2-0.4 mgINTRAVENOUS (PACU) PRNHYDROmorphone 0.5 mg/mL FRET SAW OPERATOR CLINICIAN DOSE 0.2 mg 0.2 mg INTRAVENOUS [...] October 01, 2017 : 1:49 PM PAGER: [phone] further assistance and weekends please page the Group [phone] [facility] PROGRESSon 10-01-2017 PROGRESS HNO ID: [id number] thor: Rick Diaze: Critical CareAuthor Type: PhysicianType: [...] theabove surgeryNeuro:- Analgesia: Tylenol, toradol/Motrin, bupivacaine, dilaudid 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 Boothe.Kolby Brown MDGeneral Surgery[C]: [phone] [P]: 48159Mshc: 10/01/2017Time: 9:59 AMSubjective:Interval Events: NAEON. Pain controlled. Thirsty. Slept ok.Physical Exam:BP 110/88 Pulse 87 Temp 37.4 ?C (99.3 ?F) (Oral) Resp 17 Ht 172.7cm (5' 7.99 ) Wt 81.1 kg (178 lb 12.7 oz) SpO2 97% BMI 27.19 kg/g3DNJHJKV: Well appearing 62 year old male in no distressNEURO: AAox3, KGA37YTIDI: Corpak/NGT in placeCHEST: nonlabored breathing on RA. NL rate and rhythmABDOMEN: Soft, non-distended, mildly tenderEXTREMITIES: Warm well perfused, no deformitiesLabs:CBC, BMP, MG, PHOSRecent Labs 32100 805 9509/02/18035308/31/1803WBC 8.38 8.24 7.14 7.49 4.87 4.43 4.93HB [...] 1.0 2.0* 2.0* 1.5*Intake and Output:Date 09/30/17 07 - 10/01/17 0659 10/01/17699 - 10/02/17 0659Shift 9526-1675 5643-4355 6106-0927 24 Hour Total 6842-4387 1967-61340817-7103 24 Hour TotalINTAKE IV 3240.1 1967 5207.1 [...] BMs 0 x 0 x Shift Total 264 078 5690 40 40Weight (kg) 81.1 81.1 81.1 81.1 [...] (MOTRIN) 800 mg ORAL q 8 HHYDROmorphone FRET SAW OPERATOR 0.5 mg/mL in NaCl 0.9% 100 mL INTRAVENOUS CONTINUOUSHYDROmorphone 0.5 mg/mL FRET SAW OPERATOR CLINICIAN DOSE 0.2-0.4 mg 0.2-0.4 mgINTRAVENOUS (PACU) PRNHYDROmorphone 0.5 mg/mL FRET SAW OPERATOR CLINICIAN DOSE 0.2 mg 0.2 mg INTRAVENOUS [...] 5 mg tab Take by mouth once daily.[facility] [place] STAFF PHYSICIAN SUPERVISING RESIDENTI have reviewed the [...] of SERVICE: 10/01/2017TIME of SERVICE: 1:30 PM [facility] PROGRESS HNO ID: [id number] thor: Michael Cedillo) AugustinService: General SurgeryAuthor Type: PhysicianType: Progress NotesFiled: 10/01/2017 1:19 PMNote Text:GENERAL SURGERY RESIDENT PROGRESS NOTEAssessment/Plan62 year old male hx HTN, DM, CAD s/p PCI, who underwent a classic whipplefor an obstructing duodenal mass 09/30, who was admitted to the SICU forfurther care.Plan:Start TF at trickle and ok to advance to [facility] ROMINA amylase x2D/c NGTAnticipate ok to Tx to RNF in PM if pressures are betterContinue EpiduralCaleb MD JaneGeneral Surgery, [id number] Pager: [phone], General Surgery Pager [phone]/11/13 9:19 AMPlease page [phone] on weekends and between 6 PM and 6 AM.SubjectiveINTERVAL HPI :Acute events overnight: none. Pain: w/c. Nausea: No. Vomiting: No. Flatus:No. Bowel movement: No. No other complaints.ObjectivePHYSICAL EXAM:General Appearance: in bed in NADLungs: nonlabored breathingAbdomen: soft, appropriately-tender, non-distendedIncisions:small amount of blood on dressingDrains:serosang x2Labs:CBC, BMP, MG, PHOSRecent Labs 32100 8009/24/18085308/31/1803WBC 8.38 8.24 7.14 7.49 4.87 4.43 4.93HB [...] (MOTRIN) 800 mg ORAL q 8 HHYDROmorphone FRET SAW OPERATOR 0.5 mg/mL in NaCl 0.9% 100 mL INTRAVENOUS CONTINUOUSHYDROmorphone 0.5 mg/mL FRET SAW OPERATOR CLINICIAN DOSE 0.2-0.4 mg 0.2-0.4 mgINTRAVENOUS (PACU) PRNHYDROmorphone 0.5 mg/mL FRET SAW OPERATOR CLINICIAN DOSE 0.2 mg 0.2 mg INTRAVENOUS q 6 HPRNinsulin lispro injection (rapid acting) (HumaLOG) SUBCUTANEOUS q 6 Hheparin 5,000 Units injection 5,000 Units SUBCUTANEOUS q 12 Henoxaparin 40 mg injection (LOVENOX) 40 mg SUBCUTANEOUS DAILYmetoclopramide HCl 10 mg injection (REGLAN) 10 mg INTRAVENOUS q 6 H PRN Normal [facility] Phosphoruson 10-01-2017 Phosphate 3.0 mg/dL Normal 2.5-4.5 [facility] Comment on above: Performed By: #### P T, PTT, AMYL, CMP, LIPA, PHOS ####[facility] [place], [place] [phone]#### TRANSF ####[facility] [place], [place] [phone] Phosphate 4.4 mg/dL Normal 2.5-4.5 [facility] Comment on above: Performed By: #### P T, PTT, AMYL, CMP, LIPA, PHOS ####[facility] [place], [place] [phone]#### TRANSF ####[facility] [address] [place], [place] [phone] THERAPY NTon 10-01-2017 THERAPY NT HNO ID: [id number] thor: Son Salgado (Pt) ChandanaService: Physical TherapyAuthor Type: Physical TherapistType: Therapy (PT/OT/Speech/Resp)Filed: 10/01/2017 6:13 PMNote Text:Physical Therapy EvaluationSERVICE DATE: 10/01/2017SERVICE TIME: 1010 to 1045ROOM: [id number] Discharge Disposition: Acute RehabJustification For Post Acute Needs: Anticipate patient will tolerate 3hours of daily therapy at 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)Assistance Required With: Cleaning;Laundry;Meals;Other : See Comment(Shares IADL's)OBJECTIVE:CURRENT [...] 01, 2017 : 6:08 PM PAGER/CONTACT #: [phone] [facility] ANES Ila 09-30-2017 ANES POST HNO ID: [id number] thor: Bogdan Montenegro, IService: AnesthesiologyAuthor Type: AnesthesiologistType: [...] 30, 2017 : 5:52 PM PAGER/CONTACT #: [phone] [facility] ANES PREOPon 09-30-2017 ANES PREOP HNO ID: [id number] thor: Brian Mendezervice: AnesthesiologyAuthor Type: AnesthesiologistType: Anesthesia PreOpFiled: 09/30/2017 8:34 AMNote Text:REGIONAL ANESTHESIOLOGY DAY OF SURGERY NOTEPATIENT NAME: Rocio JacksonMRN: [id number]: 1955Procedure(s) (LRB):LAPAROSCOPY DIAGNOSTIC (N/A)WHIPPLE PROCEDURE, WITH PANCREATOJEJUNOST [...] with exertion.Denies change in functional capacity.Denies GERD.HTNNIDMHx GA s/p stent 2010; no issues sinceBaseline anemiaChronic [...] Date- ANGIOPLASTY HX 05/15/2011 2 stents s/p GA;[facility]- CHOLECYSTECTOMY 08/11/2017 [facility]- PICC LINE INSERT/CONSULT 08/16/2017No family history [...] by mouth once daily.Inpatient medications reviewed in [facility].I have interviewed and examined the patient. I have reviewed the medicalrecord and/or the pre-anesthesia evaluation, pertinent labs, and testresults.Significant changes in the patient's condition since the History andPhysical, not otherwise documented in primary service progress notes: NoThis contains updated information obtained within 48 hours ofSurgery/Procedure.SIGNATUR E: Brian Orona MD PATIENT NAME: Rocio JacksonDATE: September 30, 2017 : 8:29 AM PAGER/CONTACT #: [phone] (pager) Normal [facility] APTTon 09-30-2017 aPTT 25.9 s Normal 23.0-32.4 [facility] Comment on above: Result Comment: Unfr actionated [...] laboratory APTT reagent in use throughout the [facility]. Performed By: #### P T, PTT, AMYL, CMP, LIPA, PHOS ####[facility] [place], [place] [phone]#### TRANSF ####[facility] [address] [place], [place] [phone] BRIEF OP NOTon 09-30-2017 BRIEF OP NOT HNO ID: [id number] thor: Mundo (Georges)(Hist) ElvaisService: General SurgeryAuthor Type: ResidentType: Brief Op NoteFiled: 09/30/2017 5:02 PMNote Text:BRIEF OP NOTELOG ID: [id number]/Procedure Date: 09/30/2017Incision/Procedure Start Time: 9:40 AMIncision Close/Procedure End Time: 4:46 PMSurgeon(s)/Proceduralist(s ) and Machine Umbrella Tipper(s):Surgeon(s) and Role: * Michael Cedillo) Jolley - [...] 2017 : 4:58 PM PAGER/CONTACT #: Normal [facility] CBCon 09-30-2017 Erythrocyte distribution width Auto Ratio (RBC) 16.2 % High 11.5-15.0 [facility] Comment on above: Performed By: #### P T, PTT, AMYL, CMP, LIPA, PHOS ####[place] [address]#### TRANSF ####[place] [address] Erythrocytes (RBC) 3.96 10*6/uL Low 4.20-6.00 [facility] Comment on above: Performed By: #### P T, PTT, AMYL, CMP, LIPA, PHOS ####[place] [address]#### TRANSF ####[place] [address] Hematocrit (HCT) 30.7 % Low 39.0-51.0 [facility] Comment on above: Performed By: #### P T, PTT, AMYL, CMP, LIPA, PHOS ####[place] [address]#### TRANSF ####[place] [address] Hemoglobin mass conc (Bld) 10.1 g/dL Low 13.0-17.0 [facility] Comment on above: Performed By: #### P T, PTT, AMYL, CMP, LIPA, PHOS ####[place] [address]#### TRANSF ####[place] [address] MCH 25.5 pG Low 26.0-34.0 [facility] Comment on above: Performed By: #### P T, PTT, AMYL, CMP, LIPA, PHOS ####[place] [address]#### TRANSF ####[place] [phone] MCHC mass conc (RBC) 32.9 g/dL Normal 30.5-36.0 [facility] Comment on above: Performed By: #### P T, PTT, AMYL, CMP, LIPA, PHOS ####[place] [address]#### TRANSF ####[place] [address] MCV 77.5 fL Low 80.0-100.0 [facility] Comment on above: Performed By: #### P T, PTT, AMYL, CMP, LIPA, PHOS ####[place] [address]#### TRANSF ####[place] [address] Platelet mean volume (PMV) 9.4 fL Normal 9.0-12.7 [facility] Comment on above: Performed By: #### P T, PTT, AMYL, CMP, LIPA, PHOS ####[address]#### TRANSF ####[place] [phone] Platelets 242 10*3/uL Normal 150-400 [facility] Comment on above: Performed By: #### P T, PTT, AMYL, CMP, LIPA, PHOS ####[place] [address]#### TRANSF ####[place] [address] WBC (Leukocytes) 7.14 10*3/uL Normal 3.70-11.00 [facility] Comment on above: Performed By: #### P T, PTT, AMYL, CMP, LIPA, PHOS ####[place] [address]#### TRANSF ####[place] [address] CBC and Differentialon 09-30 Abs Baso <0.03 Normal <0.11 [facility] Comment on above: Performed By: #### P T, PTT, AMYL, CMP, LIPA, PHOS ####[place] [address]#### TRANSF ####[place] [address] Abs Jerome 0.48 k/uL Normal <0.87 [facility] Comment on above: Performed By: #### P T, PTT, AMYL, CMP, LIPA, PHOS ####[place] [address]#### TRANSF ####[place] [address] Abs Neut 6.37 k/uL Normal 1.45-7.50 [facility] Comment on above: Performed By: #### P T, PTT, AMYL, CMP, LIPA, PHOS ####[place] [address]#### TRANSF ####[place] [address] Basophils/100 WBC Auto (Bld) 0.0 % Normal [facility] Comment on above: Performed By: #### P T, PTT, AMYL, CMP, LIPA, PHOS ####[place] [address]#### TRANSF ####[place] [address] DTYPE Auto Diff Normal [facility] Comment on above: Performed By: #### P T, PTT, AMYL, CMP, LIPA, PHOS ####[place] [address]#### TRANSF ####[place] [address] Eosinophils 10*3/uL Normal <0.46 [facility] Comment on above: Performed By: #### P T, PTT, AMYL, CMP, LIPA, PHOS ####[place] [address]#### TRANSF ####[place] [address] Eosinophils/100 leukocytes 0.0 % Normal [facility] Comment on above: Performed By: #### P T, PTT, AMYL, CMP, LIPA, PHOS ####[place] [address]#### TRANSF ####[place] [address] Erythrocyte distribution width Auto Ratio (RBC) 15.9 % High 11.5-15.0 [facility] Comment on above: Performed By: #### P T, PTT, AMYL, CMP, LIPA, PHOS ####[place] [address]#### TRANSF ####[place] [address] Erythrocytes (RBC) 3.70 10*6/uL Low 4.20-6.00 [facility] Comment on above: Performed By: #### P T, PTT, AMYL, CMP, LIPA, PHOS ####[place] [address]#### TRANSF ####[place] [address] Hematocrit (HCT) 28.9 % Low 39.0-51.0 [facility] Comment on above: Performed By: #### P T, PTT, AMYL, CMP, LIPA, PHOS ####[address]#### TRANSF ####[address] Hemoglobin mass conc (Bld) 9.4 g/dL Low 13.0-17.0 [facility] Comment on above: Performed By: #### P T, PTT, AMYL, CMP, LIPA, PHOS ####[place] [address]#### TRANSF ####[place] [address] Lymphocytes 1.39 10*3/uL Normal 1.00-4.00 [facility] Comment on above: Performed By: #### P T, PTT, AMYL, CMP, LIPA, PHOS ####[place] [address]#### TRANSF ####[place] [address] Lymphocytes/100 leukocytes 16.9 % Normal [facility] Comment on above: Performed By: #### P T, PTT, AMYL, CMP, LIPA, PHOS ####[place] [address]#### TRANSF ####[place] [address] MCH 25.4 pG Low 26.0-34.0 [facility] Comment on above: Performed By: #### P T, PTT, AMYL, CMP, LIPA, PHOS ####[place] [address]#### TRANSF ####[place] [phone] MCHC mass conc (RBC) 32.5 g/dL Normal 30.5-36.0 [facility] Comment on above: Performed By: #### P T, PTT, AMYL, CMP, LIPA, PHOS ####[place] [address]#### TRANSF ####[place] [phone] MCV 78.1 fL Low 80.0-100.0 [facility] Comment on above: Performed By: #### P T, PTT, AMYL, CMP, LIPA, PHOS ####[place] [address]#### TRANSF ####[place] [address] Monocytes/100 leukocytes 5.8 % Normal [facility] Comment on above: Performed By: #### P T, PTT, AMYL, CMP, LIPA, PHOS ####[place] [address]#### TRANSF ####[place] [phone] Neutrophils/100 WBC Auto (Bld) 77.3 % Normal [facility] Comment on above: Performed By: #### P T, PTT, AMYL, CMP, LIPA, PHOS ####[place] [address]#### TRANSF ####[place] [phone] Platelet mean volume (PMV) 9.7 fL Normal 9.0-12.7 [facility] Comment on above: Performed By: #### P T, PTT, AMYL, CMP, LIPA, PHOS ####[place] [address]#### TRANSF ####[place] [phone] Platelets 231 10*3/uL Normal 150-400 [facility] Comment on above: Performed By: #### P T, PTT, AMYL, CMP, LIPA, PHOS ####[place] [address]#### TRANSF ####[place] [phone] WBC (Leukocytes) 8.24 10*3/uL Normal 3.70-11.00 [facility] Comment on above: Performed By: #### P T, PTT, AMYL, CMP, LIPA, PHOS ####[place] [address]#### TRANSF ####[place] [phone] Comp Metabolic Panelon 09-30 Alanine aminotransferase (ALT) 46 U/L Normal 5-50 [facility] Comment on above: Performed By: #### P T, PTT, AMYL, CMP, LIPA, PHOS ####[place] [address]#### TRANSF ####[place] [address] Albumin 3.1 g/dL Low 3.5-5.0 [facility] Comment on above: Performed By: #### P T, PTT, AMYL, CMP, LIPA, PHOS ####[place] [address]#### TRANSF ####[place] [address] Alkaline phosphatase (ALP) 91 U/L Normal 40-150 [facility] Comment on above: Performed By: #### P T, PTT, AMYL, CMP, LIPA, PHOS ####[address]#### TRANSF ####[place] [phone] Anion gap 11 mmol/L Normal 9-18 [facility] Comment on above: Performed By: #### P T, PTT, AMYL, CMP, LIPA, PHOS ####[place] [address]#### TRANSF ####[place] [address] Aspartate aminotransferase (AST) 48 U/L High 7-40 [facility] Comment on above: Performed By: #### P T, PTT, AMYL, CMP, LIPA, PHOS ####[place] [address]#### TRANSF ####[place] [address] Bilirubin (total) 0.5 mg/dL Normal 0.0-1.5 [facility] Comment on above: Performed By: #### P T, PTT, AMYL, CMP, LIPA, PHOS ####[place] [address]#### TRANSF ####[place] [address] Calcium 7.8 mg/dL Low 8.5-10.5 [facility] Comment on above: Performed By: #### P T, PTT, AMYL, CMP, LIPA, PHOS ####[place] [address]#### TRANSF ####[place] [address] Chloride 105 mmol/L Normal 98-110 [facility] Comment on above: Performed By: #### P T, PTT, AMYL, CMP, LIPA, PHOS ####[place] [address]#### TRANSF ####[place] [address] CO2 24 mmol/L Normal 23-32 [facility] Comment on above: Performed By: #### P T, PTT, AMYL, CMP, LIPA, PHOS ####[place] [address]#### TRANSF ####[place] [address] Creatinine 0.65 mg/dL Low 0.70-1.40 [facility] Comment on above: Performed By: #### P T, PTT, AMYL, CMP, LIPA, PHOS ####[place] [address]#### TRANSF ####[place] [address] eGFR (non-black) mL/min/{1.73_m2} Normal >60 [facility] Comment on above: Performed By: #### P T, PTT, AMYL, CMP, LIPA, PHOS ####[place] [address]#### TRANSF ####[place] [address] Glucose mass conc 157 mg/dL High 65-100 [facility] Comment on above: Performed By: #### P T, PTT, AMYL, CMP, LIPA, PHOS ####[place] [address]#### TRANSF ####[place] [address] Potassium molar conc 4.9 mmol/L Normal 3.5-5.0 [facility] Comment on above: Performed By: #### P T, PTT, AMYL, CMP, LIPA, PHOS ####[place] [address]#### TRANSF ####[place] [address] Protein 5.8 g/dL Low 6.0-8.4 [facility] Comment on above: Performed By: #### P T, PTT, AMYL, CMP, LIPA, PHOS ####[place] [address]#### TRANSF ####[address] Av[address] [address] Sodium 140 mmol/L Normal 135-146 [facility] Comment on above: Performed By: #### P T, PTT, AMYL, CMP, LIPA, PHOS ####[place] [address]#### TRANSF ####[place] [address] Urea nitrogen 18 mg/dL Normal 10-25 [facility] Comment on above: Performed By: #### P T, PTT, AMYL, CMP, LIPA, PHOS ####[place] [address]#### TRANSF ####[place] [address] Fibrinogenon 09-30-2017 Fibrinogen 257 mg/dL Normal 200-400 [facility] Comment on above: Performed By: #### P T, PTT, AMYL, CMP, LIPA, PHOS ####[place] [address]#### TRANSF ####[place] [address] Lactateon 09-30-2017 Lactate 2.3 mmol/L High 0.4-2.0 [facility] Comment on above: Performed By: #### P T, PTT, AMYL, CMP, LIPA, PHOS ####[place] [address]#### TRANSF ####[place] [phone] NURSING PROGon 09-30-2017 NURSING PROG HNO ID: [id number] thor: Sandrita KenRn) Clayton Guerraice: (none)Author Type: Registered NurseType: Nursing Progress NoteFiled: 09/30/2017 4:15 PMNote Text: Nursing Progress NotePatient Name: Rocio HayesN: [id number] Location: /QS-PPGV-47 ____Daily Note:1043- family updated via pager [id number]- family updated vis pager [id number]- family updated via pager [phone]- family updated via pager [id number]- family updated via pager [phone] Family update via pager [id number] family notified of closure start time. Requested family to return Rajat waiting roomThis note was completed by: Sandrita Guerra RN [facility] NURSING PROG HNO ID: [id number] thor: Kevin Us (Rn) Bhupinder Beltran: (none)Author Type: Registered NurseType: Nursing Progress NoteFiled: 09/30/2017 9:46 AMNote Text: Nursing Progress NotePatient Name: Rocio HayesN: [id number] Location: /QK-ZCEU-50 ____ Patient's family updated at 9:44 AM about status of procedure per MD Ainsley.This note was completed by: Kevin Beltran RN [facility] NURSING PROG HNO ID: [id number] thor: Mirian KenRn) MOUSTAPHA Albrechtervice: NursingAuthor Type: [...] degree and side rails up X2. Normal [facility] OPERATIVE NOon 09-30-2017 OPERATIVE NO HNO ID: [id number] thor: Michael Cedillo) KrishnainService: General SurgeryAuthor Type: PhysicianType: Operative ReportFiled: 10/05/2017 7:03 PMNote Text:[facility] - Operative ReportFRISCH, DEANDOB: 1955 AGE: 62 SEX: MMRN: [id number] ACCTNUM: [id number] SVC: INT LOCATION: [id number] PHYSICIAN: Michael Jolley MDDATE OF PROCEDURE: 09/30/2017PREOPERATIVE [...] pleasant 62-year-old male who was [facility]ad[facility] with intraabdominal abscesses afterhaving undergone a cholecystectomy on hind site. 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 He at the time of that admission [...] time and the end time.GAEL Lomeliept Of SurgeryTA:[id number]:02/2018jhD: 10/02/2017 17:34:33T: 10/03/2017 03:14:36Job #: [id number] [facility] PROCEDUREon 09-30-2017 PROCEDURE HNO ID: [id number] thor: Yrn Cedillo) GonzaloService: Pain ManagementAuthor Type: AnesthesiologistType: ProceduresFiled: 09/30/2017 10:44 [...] 30, 2017 : 10:40 AM PAGER/CONTACT #: [phone] [facility] PT EDon 09-30-2017 PT ED HNO ID: [id number] thor: Celina (Rn) MOUSTAPHA Wagnerervice: NursingAuthor Type: Registered NurseType: Patient EducationFiled: 09/30/2017 8:51 AMNote Text:PATIENT EDUCATION TOPIC: PROCEDURE / SURGERY: Pre-op Teaching: SurgicalSafety PrinciplesPATIENT NAME: Rocio TorresdonnyMRN: [id number] LOCATION: [place] [address]/HJ-VJPC-12PFIJWPBB S TO LEARNCOGNITIVE ABILITY: Alert and orientedMOTIVATION TO LEARN: EagerFAMILY SUPPORT: High - Very involved in pt careINSTRUCTION PROVIDED TO: Patient and family memberPATIENT LEARNS BEST BY: Individual InstructionFACTORS AFFECTING LEARNING: NonePHYSICAL LIMITATIONS AFFECTING LEARNING: Other Limitations MEMORY LOSSLEARNING RESPONSEDIAGNOSIS: ADULT: WHIPPLEPATIENT/FAMILY RESPONSE: Verbalizes understanding of: QPF-ZTPDHCLFYZRGUSHDGKQLX-Ih rrect action to take to follow pre-operative instructionsMETHOD OF INSTRUCTION: Individual instructionFOLLOW-UP PLAN: Complete - No need for follow-upINSTRUCTIONAL AIDS USED: NASUPPLEMENTAL MATERIAL PROVIDED TO PATIENT: NoneREFERRAL (RECOMMENDATION): NoneElectronically Signed By: Celina Wagner RN Normal [facility] Protimeon 09-30-2017 INR Coag RelTime (Bld) 1.2 {INR} Normal 0.9-1.3 [facility] Comment on above: Result Comment: Tayler min K Antagonist (VKA) Therapeutic Range: INR 2 to 3 (Target INR of 2.5)Note: For patients treated with VKA drugs, such as warfarin, the [place] [employer] 2012 Guideline recommends [...] al. Chest 2012, 141:7S-47SNishimivette RA, et al. [facility] 2017, 70: 252-289 Performed By: #### P T, PTT, AMYL, CMP, LIPA, PHOS ####[place] [address] [place], [place] [phone]#### TRANSF ####[address] [phone] PT Sec 12.2 sec Normal 9.7-13.0 [facility] Comment on above: Performed By: #### P T, PTT, AMYL, CMP, LIPA, PHOS ####[address] [phone]#### TRANSF ####[address] [phone] SURGICAL PATHOLOGYon 018 SURGICAL PATHOLOGY [facility]: [id number] Physician: MICHAEL JOLLEY MD FINAL DIAGNOSIS1. Duodenal [...] for malignancy. (Dr. Parker)Intraoperative diagnosis performed at [facility], [address] [place] [address] GROSS DESCRIPTIONA. Received fresh for frozen section [...] for frozen then for permanentin one cassette. /dss 09/30/2017D. Received in formalin designated pancreaticoduodenectomy is [...] cmin greatest dimension. A photograph is taken. [employer] sections aresubmitted as follows: D1 perpendicular proximal duodenal margin, U4ohpytonpqrepy distal duodenal margin, D3 pancreatic neck shave [...] minimally attached fibrofatty tissuewhich is grossly unremarkable. [employer] sections are submitted asfollows: E1 perpendicular margins, [...] 0.7 cm.Sectioning does not reveal any masses. [employer] sections aresubmitted as follows: G1 perpendicular proximal margin, G2 perpendiculardistal margin, G3 pylorus, G4 shave margin mucosal covered tissue withstaple line. BF/glw 10/01/2017 Gross examination performed at [facility], [address] [place] [address] of Report: 10/13/2017Date of Procedure: 09/30/2017Date of Receipt: 09/30/2017Submitted by: TOMS JOLLEY, MDLocation: [id number] interpretation performed at [facility], [address] [facility] [address]. Normal [facility] Comment on above: Performed By: #### P T, PTT, AMYL, CMP, LIPA, PHOS ####[facility] [place] [phone]#### TRANSF ####[place] [address] [place] [phone] Wound Culture/Stainon 2017 Wound Culture/Stain Smear Result [...] <=2 FVancomycin SUSCEPTIBLE 1 F Critically abnormal [facility] Comment on above: Performed By: #### P T, PTT, AMYL, CMP, LIPA, PHOS ####[facility] [place] [phone]#### TRANSF ####[facility] [place] [phone] NURSING PROGon 09-25-2017 NURSING PROG HNO ID: [id number] thor: Zaira (Rn) Amanuel, RNService: NeurosurgeryAuthor Type: Registered NurseType: Nursing Progress NoteFiled: 09/29/2017 4:23 PMNote Text:PACC Nurse Progress NoteHistory AND Physical:PACC Visit Date: 5-74-01Tvnrpyku HANDP Date: N/AED visit Date: N/AOutside HANDP [...] for cardiac optimization by Gerald Freeman, RNOhiohealth Riverside Methodist Hospital 2017 8:38 AMADDEND:Cardiac Optimization: Dr. Abreu, letter scanned in [facility] 09-29-17.Chart Check:Zackary Beverly 2017 3:05 PM [facility] 09-24-2017 ALLIED HEALTH HNO ID: [id number] thor: Jennifer Win CtService: (none)Author Type: (none)Type: Allied HealthFiled: 09/24/2017 10:49 AMNote Text: Radiology Service Progress NotePATIENT NAME: Rocio BrianDary: [id number] OF SERVICE: September 24, 2017TIME: 10:48 AMPATIENT IDENTITY VERIFICATION COMPLETED USING TWO (2) METHODS: Patientconfirmed name verbally and ID band matches..PATIENT GENDER DATA: MalePATIENT RELEVANT IMPLANT DATA REVIEWED: Not ApplicableRADIOLOGY DEPARTMENT: CT; Exam(s) Completed: Pancreas and PelvisPERIPHERAL IV DATA: Site assessment: Clean,Dry and Intact, Sitedisposition DiscontinuedSIGNED BY: Jennifer Win CtOhiohealth Riverside Methodist Hospital 2017 10:48 AM Normal [facility] APTTon 09-24-2017 aPTT 24.9 s Normal 23.0-32.4 [facility] Comment on above: Result Comment: Unfr actionated [...] laboratory APTT reagent in use throughout the [facility]. Performed By: #### P T, PTT, AMYL, CMP, LIPA, PHOS ####[place] [phone]#### TRANSF ####[place] [phone] CA 19-9on 09-24-2017 CA 19-9 15 U/mL Normal <36 [facility] Comment on above: Result Comment: Test analyzed by the [employer] DxI method. Performed By: #### P T, PTT, AMYL, CMP, LIPA, PHOS ####[place] [phone]#### TRANSF ####[place] [phone] CBC and Differentialon 09-24 Abs Baso <0.03 Normal <0.11 [facility] Comment on above: Performed By: #### P T, PTT, AMYL, CMP, LIPA, PHOS ####[place] 143206[address]7110#### TRANSF ####[place] [phone] Abs Jerome 0.57 k/uL Normal <0.87 [facility] Comment on above: Performed By: #### P T, PTT, AMYL, CMP, LIPA, PHOS ####[place] [address]#### TRANSF ####[place] [phone] Abs Neut 3.92 k/uL Normal 1.45-7.50 [facility] Comment on above: Performed By: #### P T, PTT, AMYL, CMP, LIPA, PHOS ####[place] [address]#### TRANSF ####[place] [phone] Basophils/100 WBC Auto (Bld) 0.3 % Normal [facility] Comment on above: Performed By: #### P T, PTT, AMYL, CMP, LIPA, PHOS ####[place] [address]#### TRANSF ####[place] [phone] DTYPE Auto Diff Normal [facility] Comment on above: Performed By: #### P T, PTT, AMYL, CMP, LIPA, PHOS ####[place] [address]#### TRANSF ####[place] [phone] Eosinophils 0.34 10*3/uL Normal <0.46 [facility] Comment on above: Performed By: #### P T, PTT, AMYL, CMP, LIPA, PHOS ####[place] [address]#### TRANSF ####[place] [phone] Eosinophils/100 leukocytes 4.5 % Normal [facility] Comment on above: Performed By: #### P T, PTT, AMYL, CMP, LIPA, PHOS ####[place] [address]#### TRANSF ####[address] [place] [place] [address] Erythrocyte distribution width Auto Ratio (RBC) 16.2 % High 11.5-15.0 [facility] Comment on above: Performed By: #### P T, PTT, AMYL, CMP, LIPA, PHOS ####[place] [address]#### TRANSF ####[address]rist[address] [place] [address] Erythrocytes (RBC) 10*6/uL Normal <0.01 [facility] Comment on above: Performed By: #### P T, PTT, AMYL, CMP, LIPA, PHOS ####[place] [address]#### TRANSF ####[address] [place] [address] Erythrocytes (RBC) 3.62 10*6/uL Low 4.20-6.00 [facility] Comment on above: Performed By: #### P T, PTT, AMYL, CMP, LIPA, PHOS ####[place] [address]#### TRANSF ####[address]rist[address] [place] [address] Erythrocytes (RBC) 0.0 /100 WBC Normal 0 [facility] Comment on above: Performed By: #### P T, PTT, AMYL, CMP, LIPA, PHOS ####[place] [address]#### TRANSF ####[address] AvSelena [place]ille [phone] Hematocrit (HCT) 29.1 % Low 39.0-51.0 [facility] Comment on above: Performed By: #### P T, PTT, AMYL, CMP, LIPA, PHOS ####[place] [address]#### TRANSF ####[place] [phone] Hemoglobin mass conc (Bld) 8.6 g/dL Low 13.0-17.0 [facility] Comment on above: Performed By: #### P T, PTT, AMYL, CMP, LIPA, PHOS ####[place] [address]#### TRANSF ####[place] [phone] Lymphocytes 2.62 10*3/uL Normal 1.00-4.00 [facility] Comment on above: Performed By: #### P T, PTT, AMYL, CMP, LIPA, PHOS ####[place] [address]#### TRANSF ####[place] 286184[address] Lymphocytes/100 leukocytes 35.0 % Normal [facility] Comment on above: Performed By: #### P T, PTT, AMYL, CMP, LIPA, PHOS ####[place] [address]#### TRANSF ####[place] [phone] MCH 23.8 pG Low 26.0-34.0 [facility] Comment on above: Performed By: #### P T, PTT, AMYL, CMP, LIPA, PHOS ####[place] [address]#### TRANSF ####[place] [phone] MCHC mass conc (RBC) 29.6 g/dL Low 30.5-36.0 [facility] Comment on above: Performed By: #### P T, PTT, AMYL, CMP, LIPA, PHOS ####[place] [address]#### TRANSF ####[place] [phone] MCV 80.4 fL Normal 80.0-100.0 [facility] Comment on above: Performed By: #### P T, PTT, AMYL, CMP, LIPA, PHOS ####[place] [address]#### TRANSF ####[place] [phone] Monocytes/100 leukocytes 7.6 % Normal [facility] Comment on above: Performed By: #### P T, PTT, AMYL, CMP, LIPA, PHOS ####[place] [address]#### TRANSF ####[place] [phone] Neutrophils/100 WBC Auto (Bld) 52.6 % Normal [facility] Comment on above: Performed By: #### P T, PTT, AMYL, CMP, LIPA, PHOS ####[place] [address]#### TRANSF ####[phone] Platelet mean volume (PMV) 10.9 fL Normal 9.0-12.7 [facility] Comment on above: Performed By: #### P T, PTT, AMYL, CMP, LIPA, PHOS ####[place] [address]#### TRANSF ####[place] [phone] Platelets 354 10*3/uL Normal 150-400 [facility] Comment on above: Performed By: #### P T, PTT, AMYL, CMP, LIPA, PHOS ####[phone]#### TRANSF ####[place] [phone] WBC (Leukocytes) 7.49 10*3/uL Normal 3.70-11.00 [facility] Comment on above: Performed By: #### P T, PTT, AMYL, CMP, LIPA, PHOS ####[place] [address]206[address]#### TRANSF ####[place] [phone] CEAon 09-24-2017 CEA 0.7 ng/mL Normal 0.0-2.9 [facility] Comment on above: Result Comment: Test analyzed by the [employer] DxI method. Performed By: #### P T, PTT, AMYL, CMP, LIPA, PHOS ####[place] [address]206[address]#### TRANSF ####[address] [phone] CT PANCREAS/PELVIS W IVCONon 09-24-2017 CT PANCREAS/PELVIS [...] the report reviewed and electronically signed by: ATYIA JUAREZ MD on Sep 25 2017 9:02AM [id number] Normal [facility] Comp Metabolic Panelon 09-24 Alanine aminotransferase (ALT) 38 U/L Normal 5-50 [facility] Comment on above: Performed By: #### P T, PTT, AMYL, CMP, LIPA, PHOS ####[place] [address]#### TRANSF ####[place] [phone] Albumin 3.7 g/dL Normal 3.5-5.0 [facility] Comment on above: Performed By: #### P T, PTT, AMYL, CMP, LIPA, PHOS ####[place] [address]#### TRANSF ####[place] [phone] Alkaline phosphatase (ALP) 160 U/L High 40-150 [facility] Comment on above: Performed By: #### P T, PTT, AMYL, CMP, LIPA, PHOS ####[place] [address]#### TRANSF ####[place] [phone] Anion gap 12 mmol/L Normal 9-18 [facility] Comment on above: Performed By: #### P T, PTT, AMYL, CMP, LIPA, PHOS ####[place] [address]#### TRANSF ####[place] [phone] Aspartate aminotransferase (AST) 37 U/L Normal 7-40 [facility] Comment on above: Performed By: #### P T, PTT, AMYL, CMP, LIPA, PHOS ####[place] [address]#### TRANSF ####[place] [phone] Bilirubin (total) 0.3 mg/dL Normal 0.0-1.5 [facility] Comment on above: Performed By: #### P T, PTT, AMYL, CMP, LIPA, PHOS ####[place] [address]#### TRANSF ####[place] [phone] Calcium 9.7 mg/dL Normal 8.5-10.5 [facility] Comment on above: Performed By: #### P T, PTT, AMYL, CMP, LIPA, PHOS ####[place] [address]#### TRANSF ####[place] [address] Chloride 98 mmol/L Normal 98-110 [facility] Comment on above: Performed By: #### P T, PTT, AMYL, CMP, LIPA, PHOS ####[place] [address]#### TRANSF ####[place] [address] CO2 28 mmol/L Normal 23-32 [facility] Comment on above: Performed By: #### P T, PTT, AMYL, CMP, LIPA, PHOS ####[place] [address]#### TRANSF ####[place] [address] Creatinine 0.68 mg/dL Low 0.70-1.40 [facility] Comment on above: Performed By: #### P T, PTT, AMYL, CMP, LIPA, PHOS ####[place] [address]#### TRANSF ####[place] [address]184[address] eGFR (non-black) mL/min/{1.73_m2} Normal >60 [facility] Comment on above: Performed By: #### P T, PTT, AMYL, CMP, LIPA, PHOS ####[place] [address]#### TRANSF ####[place] [phone] Glucose mass conc 110 mg/dL High 65-100 [facility] Comment on above: Performed By: #### P T, PTT, AMYL, CMP, LIPA, PHOS ####[place] [address]#### TRANSF ####[place] [phone] Potassium molar conc 4.7 mmol/L Normal 3.5-5.0 [facility] Comment on above: Performed By: #### P T, PTT, AMYL, CMP, LIPA, PHOS ####[place] [address]#### TRANSF ####[place] [phone] Protein 7.8 g/dL Normal 6.0-8.4 [facility] Comment on above: Performed By: #### P T, PTT, AMYL, CMP, LIPA, PHOS ####[place] [address]#### TRANSF ####[place] 286184[address] Sodium 138 mmol/L Normal 135-146 [facility] Comment on above: Performed By: #### P T, PTT, AMYL, CMP, LIPA, PHOS ####[place] [address]#### TRANSF ####[place] 286184[address] Urea nitrogen 13 mg/dL Normal 10-25 [facility] Comment on above: Performed By: #### P T, PTT, AMYL, CMP, LIPA, PHOS ####[facility] [place], [place] [phone]#### TRANSF ####[facility] [place], [place] [phone] NURSING PROGon 09-24-2017 NURSING PROG HNO ID: [id number] thor: Nayeli Humphries (Rn) MOUSTAPHA Pelletierervice: RadiologyAuthor Type: Registered NurseType: Nursing Progress NoteFiled: 09/24/2017 10:26 AMNote Text: Radiology Service Progress NotePATIENT NAME: Rocio Boudreaux: [id number] OF SERVICE: September 24, 2017TIME: 10:25 AMPATIENT WEIGHT: 184 LBSPATIENT IDENTITY VERIFICATION COMPLETED USING TWO (2) METHODS: Patientconfirmed name verbally and Date of .PATIENT GENDER DATA: MaleCONTRAST INDUCED NEPHROPATHY RISK FACTORS: Patient age > 60 years,Diabetic: Yes. Current medication(s): Metformin. Patient currently hasinsulin pump?: No. and Home going recommendation given YesCREATININE:CreatinineDate Value Ref Range Gdncnm0609/01/2017 0.54 (L) 0.70 - 1.40 mg/dL Final08/31/2017 0.56 (L) 0.70 - 1.40 mg/dL Final08/30/2017 0.59 (L) 0.70 - 1.40 mg/dL Final eGFR-All Other RacesDate Value Ref Range Mfamgq4409/01/2017 >60 >60 . Final eGFR- AmericanDate Value Ref Range Fkrayq8309/01/2017 >60 >60 Final P.O.C.T. RESULTS: N/A September 24, 2017TREATMENT: No Hydration needed.ALLERGIES: Reviewed and unchangedCONTRAST ALLERGY: NO.IV SITE: Ambulatory: A peripheral IV was started in the Right forearmwith a diffusic cath: 20 gauge. A Saline lock was inserted per protocol.IV SITE APPEARANCE: Clean,Dry and IntactSIGNED BY: Nayeli Pelletier RNOhiohealth Riverside Methodist Hospital 2017 10:25 AM Normal [facility] Protimeon 09-24-2017 INR Coag RelTime (Bld) 1.1 {INR} Normal 0.9-1.3 [facility] Comment on above: Result Comment: Tayler min K Antagonist (VKA) Therapeutic Range: INR 2 to 3 (Target INR of 2.5)Note: For patients treated with VKA drugs, such as warfarin, the [place] [employer] 2012 Guideline recommends [...] al. Chest 2012, 141:7S-47SNishneto RA, et al. [facility] 2017, 70: 252-289 Performed By: #### P T, PTT, AMYL, CMP, LIPA, PHOS ####[phone]#### TRANSF ####[place] [phone] PT Sec 11.1 sec Normal 9.7-13.0 [facility] Comment on above: Performed By: #### P T, PTT, AMYL, CMP, LIPA, PHOS ####[phone]#### TRANSF ####[place] [phone] Type and SCR (30D)on 018 ABO/RH(D) Positive Normal [facility] Comment on above: Performed By: #### P T, PTT, AMYL, CMP, LIPA, PHOS ####[phone]#### TRANSF ####[facility] [place], [place] [phone] Antibody Screen Negative Normal [facility] Comment on above: Performed By: #### P T, PTT, AMYL, CMP, LIPA, PHOS ####[facility] [place], [place] [phone]#### TRANSF ####[facility] [place], [place] [phone] HOSPon 09-16-2017 HOSP Patient:Jason Jackson RN: Height:5' [...] 3.5HEMA* 29.1 % 09/24/2017 51.0 39.0Progress Notes ([facility] [address]):Michael Jolley MD 09/27/2017 12:29 PM SignedSURGERY PREOPERATIVE VISIT NOTEName: Rocio JacksonMedical Record: [id number] No.: [id number] Frisch is a 62 year old male [...] Date- ANGIOPLASTY HX 05/15/2011 2 stents s/p GA;[facility]- CHOLECYSTECTOMY 08/11/2017 [facility]- PICC LINE INSERT/CONSULT 08/16/2017SOCIAL HISTORY:Social HistorySubstance [...] Patient understands risk of medical complicationsincluding pneumonia, GA, UTI and . Patient expressed understanding andconsented to the surgery.The patient had an opportunity to ask additional questions that were answered.The patient expressed that they understood.A consent form was signed today.Prescriptions were explained and provided to the patient.Magalys Alvarez RNPrevious VersionProgress Notes ([facility]):Magalys Alvarez RN 09/23/2017 5:01 PM SignedPatient is scheduled for [place] on 09/30/[address] Jolley.09/16/2017 Cardiac Clearance request faxed to patient horser up for riskstratification and recommendations for Eliquis and AsaCall to office today to check status of request. Nurse unavailable. Awaitingreturn call from nurse.Dr. Irving CastellanosStacey [place] [phone] [address] [id number] fx Magalys Alvarez RN 09/24/2017 1:48 PM SignedReceived return call from [facility].Patient is pending a stress test on 09/28/2017. Dr. Abreu's office will sendcardiac stratification letter after testing completed.Per Dr. Jolley, patient is to hold Eliquis and Asa (last dose 09/23/2017). Normal [facility] CASE MANAGEM HNO ID: [id number] thor: Alexandrea (Rn) Thom, RNService: Care ManagementAuthor Type: Registered NurseType: Care Mgt Progress NoteFiled: 09/01/2017 11:42 AMNote Text:CARE MANAGEMENT DISCHARGE NOTESERVICE DATE: 09/01/2017SERVICE TIME: 11:02 AM LOS: 19 daysAdmission Date: 08/13/2017DISCHARGE ARRANGEMENT (list agency and phone number)long term facilityProvider: [facility] [id number] ASSESSMENT:Caregiver is ready, willing and able to meet the patient's needs asrecommended by the inter-professional team? YesPatient's transition needs and plan for meeting these needs: SNFDoes the patient have an acute stroke diagnosis, or has the patient had astroke during this admission? NoHANDOFF COMMUNICATION:SNFTRANSPORTAT ION ARRANGEMENTS:Car Sisters will drive pt to the SNFADDITIONAL CONTACT RESOURCES: nonePlan is for dc today to [facility] in [place].The pt and his sisters have verbalized agreement with this plan.SIGNATURE: Alexandrea Tomas RN PATIENT NAME: Rocio JacksonDATE: September 01, 2017 : 11:02 AM PAGER/CONTACT #: [phone] Normal [facility] CBC and Differentialon 09-01 Abs Baso <0.03 Normal <0.11 [facility] Comment on above: Performed By: #### P T, PTT, AMYL, CMP, LIPA, PHOS ####[place] [address]206[address]#### TRANSF ####[facility] Ntvwiknb[address] [place] ParkRaymond [place] [phone] Abs Jerome 0.44 k/uL Normal <0.87 [facility] Comment on above: Performed By: #### P T, PTT, AMYL, CMP, LIPA, PHOS ####[place] [phone]#### TRANSF ####[place] [phone] [phone] Abs Neut 2.43 k/uL Normal 1.45-7.50 [facility] Comment on above: Performed By: #### P T, PTT, AMYL, CMP, LIPA, PHOS ####[place] [address]#### TRANSF ####[place] [address] [place] AvJanice [place] [phone] Basophils/100 WBC Auto (Bld) 0.4 % Normal [facility] Comment on above: Performed By: #### P T, PTT, AMYL, CMP, LIPA, PHOS ####[place] [address]#### TRANSF ####[place] [phone] DTYPE Auto Diff Normal [facility] Comment on above: Performed By: #### P T, PTT, AMYL, CMP, LIPA, PHOS ####[place] [address]#### TRANSF ####[place] [phone] Eosinophils 0.26 10*3/uL Normal <0.46 [facility] Comment on above: Performed By: #### P T, PTT, AMYL, CMP, LIPA, PHOS ####[place] [address]#### TRANSF ####[place] [phone] Eosinophils/100 leukocytes 5.3 % Normal [facility] Comment on above: Performed By: #### P T, PTT, AMYL, CMP, LIPA, PHOS ####[place] [address]#### TRANSF ####[address] AvTiffany [place] [phone] Erythrocyte distribution width Auto Ratio (RBC) 15.3 % High 11.5-15.0 [facility] Comment on above: Performed By: #### P T, PTT, AMYL, CMP, LIPA, PHOS ####[place] [address]#### TRANSF ####[place] [phone] Erythrocytes (RBC) 2.93 10*6/uL Low 4.20-6.00 [facility] Comment on above: Performed By: #### P T, PTT, AMYL, CMP, LIPA, PHOS ####[place] [address]#### TRANSF ####[place] [address] Hematocrit (HCT) 25.0 % Low 39.0-51.0 [facility] Comment on above: Performed By: #### P T, PTT, AMYL, CMP, LIPA, PHOS ####[place] [address]#### TRANSF ####[place] [address] Hemoglobin mass conc (Bld) 7.9 g/dL Low 13.0-17.0 [facility] Comment on above: Performed By: #### P T, PTT, AMYL, CMP, LIPA, PHOS ####[place] [address]#### TRANSF ####[place] [address] Lymphocytes 1.72 10*3/uL Normal 1.00-4.00 [facility] Comment on above: Performed By: #### P T, PTT, AMYL, CMP, LIPA, PHOS ####[place] [address]#### TRANSF ####[place] [address]184[address] Lymphocytes/100 leukocytes 35.3 % Normal [facility] Comment on above: Performed By: #### P T, PTT, AMYL, CMP, LIPA, PHOS ####[place] [address]#### TRANSF ####[place] [address]184[address] MCH 27.0 pG Normal 26.0-34.0 [facility] Comment on above: Performed By: #### P T, PTT, AMYL, CMP, LIPA, PHOS ####[place] [address]#### TRANSF ####[place] [phone] MCHC mass conc (RBC) 31.6 g/dL Normal 30.5-36.0 [facility] Comment on above: Performed By: #### P T, PTT, AMYL, CMP, LIPA, PHOS ####[place] [address]#### TRANSF ####[place] [address]184[address] MCV 85.3 fL Normal 80.0-100.0 [facility] Comment on above: Performed By: #### P T, PTT, AMYL, CMP, LIPA, PHOS ####[place] [address]#### TRANSF ####[place] [address]184[address] Monocytes/100 leukocytes 9.0 % Normal [facility] Comment on above: Performed By: #### P T, PTT, AMYL, CMP, LIPA, PHOS ####[place] [address]#### TRANSF ####[place] [address] [place] AvSel[place] [phone] Neutrophils/100 WBC Auto (Bld) 50.0 % Normal [facility] Comment on above: Performed By: #### P T, PTT, AMYL, CMP, LIPA, PHOS ####[address]#### TRANSF ####[address] AvSelena [place] [phone] Platelet mean volume (PMV) 9.7 fL Normal 9.0-12.7 [facility] Comment on above: Performed By: #### P T, PTT, AMYL, CMP, LIPA, PHOS ####[place] [address]#### TRANSF ####[place] [id number] Platelets 495 10*3/uL High 150-400 [facility] Comment on above: Performed By: #### P T, PTT, AMYL, CMP, LIPA, PHOS ####[place] [address]#### TRANSF ####[place] [phone] WBC (Leukocytes) 4.87 10*3/uL Normal 3.70-11.00 [facility] Comment on above: Performed By: #### P T, PTT, AMYL, CMP, LIPA, PHOS ####[address]#### TRANSF ####[place] [phone] CNDSon 09-01-2017 CNDS HNO ID: [id number] thor: Allegra Garcia) MiglionicoService: ColorectalAuthor Type: Physician AssistantType: Discharge SummariesFiled: 09/02/2017 11:51 AMNote Text:DISCHARGE SUMMARYPATIENT NAME: Rocio A Ventura ADMISSION DATE: 08/13/2017MRN: [id number] DISCHARGE DATE: 09/01/2017ATTENDING PHYSICIAN: Michael Rockwell FOR HOSPITALIZATION: Partial duodenal obstruction due to [...] Cardiology, GastroenterologyPATIENT CONDITION AT DISCHARGE: StableDISCHARGE DISPOSITION: Half-Way FacilityINFORMATION PROVIDED TO PATIENT:Instructions for My Care at Home or Healthcare FacilityThese instructions explain what you or your wound care physician need to do tocontinue your care at home or at another healthcare facility? Please go over these instructions with your nurse and wound care physician.? If you are not sure about something, [...] Department Center09/15/2017 1:45 PM Michael Cedillo) [facility] FvWestValleyIT IS EXTREMELY IMPORTANT FOR YOU [...] 02, 2017 : 11:13 AM PAGER/CONTACT #: [phone] [facility] CONSULT PROGon 09-01-2017 CONSULT PROG HNO ID: [id number] thor: Jessee Lottervice: Cardiovascular DiseaseAuthor Type: PhysicianType: [...] for for bleeding issuesadvise f/u with primary horser up as out ptAll questions answered.Subjective:Doing well no [...] Date- ANGIOPLASTY HX 05/15/2011 2 stents s/p [place];[facility]- CHOLECYSTECTOMY 08/11/2017 [facility]- PICC LINE INSERT/CONSULT 08/16/2017Prior to Admission [...] acting) (HumaLOG) SUBCUTANEOUS w MEALSAND HSphenol 1 Evans (CHLORASEPTIC) 1 Evans MUCOUS MEMBRANE (TOPICAL MOUTH ANDTHROAT) q 2 [...] Date: September 01, 2017Time: 10:00 AM Normal [facility] Comp Metabolic Panelon 09-01 Alanine aminotransferase (ALT) 74 U/L High 5-50 [facility] Comment on above: Performed By: #### P T, PTT, AMYL, CMP, LIPA, PHOS ####[place] [address]#### TRANSF ####[place] [phone] Albumin 2.9 g/dL Low 3.5-5.0 [facility] Comment on above: Performed By: #### P T, PTT, AMYL, CMP, LIPA, PHOS ####[place] [address]#### TRANSF ####[place] [address] Alkaline phosphatase (ALP) 490 U/L High 40-150 [facility] Comment on above: Performed By: #### P T, PTT, AMYL, CMP, LIPA, PHOS ####[place] [address]#### TRANSF ####[place] [address] Anion gap 7 mmol/L Low 9-18 [facility] Comment on above: Performed By: #### P T, PTT, AMYL, CMP, LIPA, PHOS ####[place] [address]#### TRANSF ####[place] [address] Aspartate aminotransferase (AST) 93 U/L High 7-40 [facility] Comment on above: Performed By: #### P T, PTT, AMYL, CMP, LIPA, PHOS ####[place] [address]#### TRANSF ####[place] [address] Bilirubin (total) 0.4 mg/dL Normal 0.0-1.5 [facility] Comment on above: Performed By: #### P T, PTT, AMYL, CMP, LIPA, PHOS ####[place] [address]#### TRANSF ####[place] [address] Calcium 8.0 mg/dL Low 8.5-10.5 [facility] Comment on above: Performed By: #### P T, PTT, AMYL, CMP, LIPA, PHOS ####[place] [address]#### TRANSF ####[place] [address] Chloride 101 mmol/L Normal 98-110 [facility] Comment on above: Performed By: #### P T, PTT, AMYL, CMP, LIPA, PHOS ####[place] [address]#### TRANSF ####[place] [address] CO2 29 mmol/L Normal 23-32 [facility] Comment on above: Performed By: #### P T, PTT, AMYL, CMP, LIPA, PHOS ####[place] [address]#### TRANSF ####[place] [address] Creatinine 0.54 mg/dL Low 0.70-1.40 [facility] Comment on above: Performed By: #### P T, PTT, AMYL, CMP, LIPA, PHOS ####[place] [address]#### TRANSF ####[place] [address] eGFR (non-black) mL/min/{1.73_m2} Normal >60 [facility] Comment on above: Performed By: #### P T, PTT, AMYL, CMP, LIPA, PHOS ####[address]#### TRANSF ####[place] [address] Glucose mass conc 149 mg/dL High 65-100 [facility] Comment on above: Performed By: #### P T, PTT, AMYL, CMP, LIPA, PHOS ####[place] [address]#### TRANSF ####[place] [address] Potassium molar conc 4.3 mmol/L Normal 3.5-5.0 [facility] Comment on above: Performed By: #### P T, PTT, AMYL, CMP, LIPA, PHOS ####[place] [address]#### TRANSF ####[place] [address] Protein 6.6 g/dL Normal 6.0-8.4 [facility] Comment on above: Performed By: #### P T, PTT, AMYL, CMP, LIPA, PHOS ####[place] [address]#### TRANSF ####[place] [address] Sodium 137 mmol/L Normal 135-146 [facility] Comment on above: Performed By: #### P T, PTT, AMYL, CMP, LIPA, PHOS ####[place] [address]#### TRANSF ####[place] [address] Urea nitrogen 11 mg/dL Normal 10-25 [facility] Comment on above: Performed By: #### P T, PTT, AMYL, CMP, LIPA, PHOS ####[place] [address]#### TRANSF ####[place] [address] Magnesiumon 09-01-2017 Magnesium 2.3 mg/dL Normal 1.7-2.6 [facility] Comment on above: Performed By: #### P T, PTT, AMYL, CMP, LIPA, PHOS ####[place] [address]#### TRANSF ####[place] [address] NURSING PROGon 09-01-2017 NURSING PROG HNO ID: [id number] thor: Sabrina (Rn) Ever, MOUSTAPHAervice: (none)Author Type: Registered NurseType: Nursing Progress NoteFiled: 09/01/2017 11:54 AMNote Text: Nursing Progress NotePatient Name: Rocio TorresdonnyMRN: [id number] [address]: [address]/QS-[id number] ____Daily Note:1153- Surgery López fisher in room PK336. Went to flush biliary drainand large amount of output started draining from site. Also does patientneed phosphate prior to d/c? Thanks! -mary ellen #[id number] Awaiting further orders.This note was completed by: Sabrina Curtis RN [facility] PLAN OF CAREon 09-01-2017 PLAN OF CARE HNO ID: [id number] thor: Miriam Britt (Cigarette Package Examiner)Service: (none)Author Type: TechnicianType: Plan of CareFiled: 09/02/2017 12:34 PMNote Text:DIABETES EDUCATOR BEDSIDE DELIVERY SURVEY1. Patient to use [facility] Bedside Delivery - N/A2. If fax, patient would like us to fax prescriptions to [facility] a. Pharmacy: b. Location: c. Phone:3. Insurance card on file - N/A4. Credit card for payment - N/A [facility] PROGRESSon 09-01-2017 PROGRESS HNO ID: [id number] thor: Kayleen (Res) BenliceService: General SurgeryAuthor Type: ResidentType: Progress NotesFiled: 09/01/2017 7:46 AMNote Text:PROGRESS NOTES - SURGICAL SERVICESPATIENT NAME: Rocio JacksonN: [id number] HISTORY OF PRESENT ILLNESS:Resting well. No acute [...] PICC line prior to discharge-DC today, with [facility] or to SNFSIGNATURE: Kayleen Gonzales MDDATE: September 01, 2017TIME: 7:46 AM Normal [facility] Phosphoruson 09-01-2017 Phosphate 2.0 mg/dL Low 2.5-4.5 [facility] Comment on above: Performed By: #### P T, PTT, AMYL, CMP, LIPA, PHOS ####[facility] [place], [place] [phone]#### TRANSF ####[facility] [place], [place] [phone] ALLIED HEALTHon 08-31-2017 ALLIED HEALTH HNO ID: [id number] thor: Lauren Fernandez) Nicholase: Spiritual CareAuthor Type: ChaplainType: Allied HealthFiled: 08/31/2017 11:01 AMNote Text:SPIRITUAL CARE PROGRESS NOTESERVICE DATE: 08/31/2017SERVICE TIME: 10:15 [facility] provided spiritual care visit with patient per request forSpiritual Care consultation. Patient was present in the room with 2family members. I provided active listening and introduction of ourservices as needed.Patient was introduced to the resources offered through Spiritual Care andHealing Services, and informed of the availability of a eyelet row marker shouldfurther needs arise. There were no further needs at this time.To contact the Spiritual Care Department: Please call [phone], [address] aSpiritual Care Consult (or page the eyelet row marker on-call at [phone] foremergent needs).SIGNATURE: Chaplain [place] PATIENT NAME: Rocio JacksonDATE: August 31, 2017 : 10:59 AM PAGER/CONTACT #: [phone] [facility] CASE MANAGEMon 08-31-2017 CASE MANAGEM HNO ID: [id number] thor: Alexandrea Tomas, RNService: Care ManagementAuthor Type: Registered NurseType: Care Mgt Progress NoteFiled: 08/31/2017 2:12 PMNote Text:CARE MANAGEMENT PROGRESS NOTESERVICE DATE: 08/31/2017SERVICE TIME: 12:14 PM LOS: 18 daysNeeds Prior to Discharge: To Be DeterminedThis CM met with Pt and his sisters at bedside.Per Pt and his sisters, [place] [facility] [place]Medical Clearance is needed.Per discussion with SAIMA Briggs, the plan is for dc tomorrow,SIGNATURE: Alexandrea Tomas RN PATIENT NAME: Rocio JacksonDATE: August 31, 2017 : 12:12 PM PAGER/CONTACT #: [phone] [facility] CBC and Differentialon 08-31 Abs Baso <0.03 Normal <0.11 [facility] Comment on above: Performed By: #### P T, PTT, AMYL, CMP, LIPA, PHOS ####[place] [address]#### TRANSF ####[place] [address] Abs Jerome 0.30 k/uL Normal <0.87 [facility] Comment on above: Performed By: #### P T, PTT, AMYL, CMP, LIPA, PHOS ####[place] [address]#### TRANSF ####[place] [address] Abs Neut 2.32 k/uL Normal 1.45-7.50 [facility] Comment on above: Performed By: #### P T, PTT, AMYL, CMP, LIPA, PHOS ####[place] [address]#### TRANSF ####[place] [address] Basophils/100 WBC Auto (Bld) 0.5 % Normal [facility] Comment on above: Performed By: #### P T, PTT, AMYL, CMP, LIPA, PHOS ####[place] [address]#### TRANSF ####[place] [address] DTYPE Auto Diff Normal [facility] Comment on above: Performed By: #### P T, PTT, AMYL, CMP, LIPA, PHOS ####[place] [address]#### TRANSF ####[place] [address] Eosinophils 0.23 10*3/uL Normal <0.46 [facility] Comment on above: Performed By: #### P T, PTT, AMYL, CMP, LIPA, PHOS ####[place] [address]#### TRANSF ####[place] [address] Eosinophils/100 leukocytes 5.2 % Normal [facility] Comment on above: Performed By: #### P T, PTT, AMYL, CMP, LIPA, PHOS ####[place] [address]#### TRANSF ####[place] [address] Erythrocyte distribution width Auto Ratio (RBC) 15.2 % High 11.5-15.0 [facility] Comment on above: Performed By: #### P T, PTT, AMYL, CMP, LIPA, PHOS ####[place] [address]#### TRANSF ####[place] [address] Erythrocytes (RBC) 2.94 10*6/uL Low 4.20-6.00 [facility] Comment on above: Performed By: #### P T, PTT, AMYL, CMP, LIPA, PHOS ####[place] [address]#### TRANSF ####[place] [address] Hematocrit (HCT) 25.1 % Low 39.0-51.0 [facility] Comment on above: Performed By: #### P T, PTT, AMYL, CMP, LIPA, PHOS ####[place] [address]#### TRANSF ####[address] AvJanice Ville [phone] Hemoglobin mass conc (Bld) 8.0 g/dL Low 13.0-17.0 [facility] Comment on above: Performed By: #### P T, PTT, AMYL, CMP, LIPA, PHOS ####[address]#### TRANSF ####[place] [address] Lymphocytes 1.56 10*3/uL Normal 1.00-4.00 [facility] Comment on above: Performed By: #### P T, PTT, AMYL, CMP, LIPA, PHOS ####[place] [address]#### TRANSF ####[place] [address] Lymphocytes/100 leukocytes 35.2 % Normal [facility] Comment on above: Performed By: #### P T, PTT, AMYL, CMP, LIPA, PHOS ####[place] [address]#### TRANSF ####[place] [address] MCH 27.2 pG Normal 26.0-34.0 [facility] Comment on above: Performed By: #### P T, PTT, AMYL, CMP, LIPA, PHOS ####[place] [address]#### TRANSF ####[place] [address] MCHC mass conc (RBC) 31.9 g/dL Normal 30.5-36.0 [facility] Comment on above: Performed By: #### P T, PTT, AMYL, CMP, LIPA, PHOS ####[address]#### TRANSF ####[place] [phone] MCV 85.4 fL Normal 80.0-100.0 [facility] Comment on above: Performed By: #### P T, PTT, AMYL, CMP, LIPA, PHOS ####[place] [address]#### TRANSF ####[place] [address] Monocytes/100 leukocytes 6.8 % Normal [facility] Comment on above: Performed By: #### P T, PTT, AMYL, CMP, LIPA, PHOS ####[place] [address]#### TRANSF ####[place] [address] Neutrophils/100 WBC Auto (Bld) 52.3 % Normal [facility] Comment on above: Performed By: #### P T, PTT, AMYL, CMP, LIPA, PHOS ####[place] [address]#### TRANSF ####[place] [address] Platelet mean volume (PMV) 9.3 fL Normal 9.0-12.7 [facility] Comment on above: Performed By: #### P T, PTT, AMYL, CMP, LIPA, PHOS ####[place] [address]#### TRANSF ####[place] [address] Platelets 470 10*3/uL High 150-400 [facility] Comment on above: Performed By: #### P T, PTT, AMYL, CMP, LIPA, PHOS ####[place] [address]#### TRANSF ####[place] [phone] WBC (Leukocytes) 4.43 10*3/uL Normal 3.70-11.00 [facility] Comment on above: Performed By: #### P T, PTT, AMYL, CMP, LIPA, PHOS ####[place] [address]#### TRANSF ####[place] [phone] Comp Metabolic Panelon 08-31 Alanine aminotransferase (ALT) 55 U/L High 5-50 [facility] Comment on above: Performed By: #### P T, PTT, AMYL, CMP, LIPA, PHOS ####[place] [address]206[address]#### TRANSF ####[place] [address] Albumin 2.8 g/dL Low 3.5-5.0 [facility] Comment on above: Performed By: #### P T, PTT, AMYL, CMP, LIPA, PHOS ####[place] [address]206[address]#### TRANSF ####[address]444-[address]755 Alkaline phosphatase (ALP) 475 U/L High 40-150 [facility] Comment on above: Performed By: #### P T, PTT, AMYL, CMP, LIPA, PHOS ####[place] [address]206[address]#### TRANSF ####[place] [address] Anion gap 7 mmol/L Low 9-18 [facility] Comment on above: Performed By: #### P T, PTT, AMYL, CMP, LIPA, PHOS ####[place] [address]206[address]#### TRANSF ####[place] [address] Aspartate aminotransferase (AST) 59 U/L High 7-40 [facility] Comment on above: Performed By: #### P T, PTT, AMYL, CMP, LIPA, PHOS ####[place] [address]#### TRANSF ####[place] [address] Bilirubin (total) 0.4 mg/dL Normal 0.0-1.5 [facility] Comment on above: Performed By: #### P T, PTT, AMYL, CMP, LIPA, PHOS ####[place] [address]#### TRANSF ####[place] [address] Calcium 7.9 mg/dL Low 8.5-10.5 [facility] Comment on above: Performed By: #### P T, PTT, AMYL, CMP, LIPA, PHOS ####[place] [address]#### TRANSF ####[place] [address] Chloride 102 mmol/L Normal 98-110 [facility] Comment on above: Performed By: #### P T, PTT, AMYL, CMP, LIPA, PHOS ####[place] [address]#### TRANSF ####[place] [address] CO2 29 mmol/L Normal 23-32 [facility] Comment on above: Performed By: #### P T, PTT, AMYL, CMP, LIPA, PHOS ####[place] [address]#### TRANSF ####[address]444[address] Creatinine 0.56 mg/dL Low 0.70-1.40 [facility] Comment on above: Performed By: #### P T, PTT, AMYL, CMP, LIPA, PHOS ####[place] [address]#### TRANSF ####[place] [address] eGFR (non-black) mL/min/{1.73_m2} Normal >60 [facility] Comment on above: Performed By: #### P T, PTT, AMYL, CMP, LIPA, PHOS ####[address]#### TRANSF ####[place] [address] Glucose mass conc 165 mg/dL High 65-100 [facility] Comment on above: Performed By: #### P T, PTT, AMYL, CMP, LIPA, PHOS ####[place] [address]#### TRANSF ####[place] [address] Potassium molar conc 4.4 mmol/L Normal 3.5-5.0 [facility] Comment on above: Performed By: #### P T, PTT, AMYL, CMP, LIPA, PHOS ####[address]#### TRANSF ####[place] [address] Protein 6.4 g/dL Normal 6.0-8.4 [facility] Comment on above: Performed By: #### P T, PTT, AMYL, CMP, LIPA, PHOS ####[place] [address]#### TRANSF ####[place] [address] Sodium 138 mmol/L Normal 135-146 [facility] Comment on above: Performed By: #### P T, PTT, AMYL, CMP, LIPA, PHOS ####[place] [address]#### TRANSF ####[place] [address] Urea nitrogen 10 mg/dL Normal 10-25 [facility] Comment on above: Performed By: #### P T, PTT, AMYL, CMP, LIPA, PHOS ####[place] [address]#### TRANSF ####[place] [address] Magnesiumon 08-31-2017 Magnesium 2.3 mg/dL Normal 1.7-2.6 [facility] Comment on above: Performed By: #### P T, PTT, AMYL, CMP, LIPA, PHOS ####[place] [address]#### TRANSF ####[place] [address] PLAN OF CAREon 08-31-2017 PLAN OF CARE HNO ID: [id number] thor: Miriam Britt (Cigarette Package Examiner)Service: (none)Author Type: TechnicianType: Plan of CareFiled: 08/31/2017 2:26 PMNote Text:DIABETES EDUCATOR BEDSIDE DELIVERY SURVEY1. Patient to use [facility] Bedside Delivery - N/A2. If fax, patient would like us to fax prescriptions to [facility] a. Pharmacy: b. Location: c. Phone:3. Insurance card on file - N/A4. Credit card for payment - N/A Normal [facility] PLAN OF CARE HNO ID: [id number] thor: Macie Cruz (Pharmacist)Service: PharmacyAuthor Type: PharmacistType: Plan of CareFiled: 08/31/2017 9:28 AMNote Text:DISCHARGE MEDICATION REVIEW BY PHARMACYPatient Name: Rocio Jackson : [id number] Admission Date: 08/13/2017Date of Contact: August 31, 2017 Time of Contact: 9:28 AMMedication list was reviewed by a Pharmacist for drug interactions or drugrelated problems:[facility]ath[facility]Ohio[facility] 2017 9:28 AMMedication ListSTART taking these [...] IR 5 mg immediate release tablet Normal [facility] PROGRESSon 08-31-2017 PROGRESS HNO ID: [id number] thor: Michael Cedillo) AugustinService: General SurgeryAuthor Type: PhysicianType: Progress NotesFiled: 08/31/2017 7:00 PMNote Text:PROGRESS NOTES - SURGICAL SERVICESPATIENT NAME: Rocio JacksonMRN: [id number] HISTORY OF PRESENT ILLNESS:Resting well. No acute [...] discharge planningToms MD Froilan, MPH, FACSGeneral/Trauma/HPB SurgeryPager: [phone] Cell: [phone] 2017 Normal [facility] Phosphoruson 08-31-2017 Phosphate 2.1 mg/dL Low 2.5-4.5 [facility] Comment on above: Performed By: #### P T, PTT, AMYL, CMP, LIPA, PHOS ####[facility] [place] [phone]#### TRANSF ####[facility] [address] [place] [phone] THERAPY NTon 08-31-2017 THERAPY NT HNO ID: [id number] thor: Adela (Care Taker) Jhonatane: Physical TherapyAuthor Type: Physical Therapy AssistantType: Therapy (PT/OT/Speech/Resp)Filed: 08/31/2017 3:24 PMNote Text: -Attestation signed by Tonia Schmitz at 08/31/2017 3:44 PMI reviewed and agree with the documentation corresponding to this therapyvisit.SIGNATURE: Tonia Schmitz, PTDATE: August 31, 2017TIME: 3:44 PM Ph ysical Therapy TreatmentSERVICE DATE: 08/31/2017SERVICE TIME: 1350 to 1415ROOM: [facility] ( [facility] RO[facility])Recommended Discharge Disposition: Subacute/SNFRecommended Discharge [...] on feet;Difficulty walking-musculoskeletalInter ventions Provided: Therapeutic Exercise (59668);Gait Training (10765)Therapeutic Exercise (88732) Treatment Minutes: 101 unitSkilled Intervention(s): Instruction in therapeutic exercise for B LEstrengtheningVerbal and tactile cuing provided for pace and performanceGait Training (25769) Treatment Minutes: 151 unitSkilled Intervention(s): Instruction in [...] 31, 2017 : 3:22 PM PAGER/CONTACT #: [phone] Normal [facility] Basic Metabolic Panlon 08-30 Anion gap 10 mmol/L Normal -18 [facility] Comment on above: Performed By: #### P T, PTT, AMYL, CMP, LIPA, PHOS ####[place] [address]#### TRANSF ####[address]444-[address] Calcium 8.1 mg/dL Low 8.5-10.5 [facility] Comment on above: Performed By: #### P T, PTT, AMYL, CMP, LIPA, PHOS ####[place] [address]206[address]#### TRANSF ####[place] [id number] [address]444-5755 Chloride 102 mmol/L Normal 98-110 [facility] Comment on above: Performed By: #### P T, PTT, AMYL, CMP, LIPA, PHOS ####[place] [address]206[address]71[address]#### TRANSF ####[place] [address]794-[address] CO2 27 mmol/L Normal 23-32 [facility] Comment on above: Performed By: #### P T, PTT, AMYL, CMP, LIPA, PHOS ####[place] [address]#### TRANSF ####[place] [address] Creatinine 0.59 mg/dL Low 0.70-1.40 [facility] Comment on above: Performed By: #### P T, PTT, AMYL, CMP, LIPA, PHOS ####[place] [address]#### TRANSF ####[place] [address] eGFR (non-black) mL/min/{1.73_m2} Normal >60 [facility] Comment on above: Performed By: #### P T, PTT, AMYL, CMP, LIPA, PHOS ####[place] [address]#### TRANSF ####[place] [address] Glucose mass conc 133 mg/dL High 65-100 [facility] Comment on above: Performed By: #### P T, PTT, AMYL, CMP, LIPA, PHOS ####[place] [address]#### TRANSF ####[place] [address] Potassium molar conc 4.4 mmol/L Normal 3.5-5.0 [facility] Comment on above: Performed By: #### P T, PTT, AMYL, CMP, LIPA, PHOS ####[place] [address]#### TRANSF ####[place] [address] Sodium 139 mmol/L Normal 135-146 [facility] Comment on above: Performed By: #### P T, PTT, AMYL, CMP, LIPA, PHOS ####[place] [address]#### TRANSF ####[place] [address] Urea nitrogen 9 mg/dL Low 10-25 [facility] Comment on above: Performed By: #### P T, PTT, AMYL, CMP, LIPA, PHOS ####[place] [address]#### TRANSF ####[place] [address] CBC and Differentialon 08-30 Abs Baso <0.03 Normal <0.11 [facility] Comment on above: Performed By: #### P T, PTT, AMYL, CMP, LIPA, PHOS ####[place] [address]#### TRANSF ####[place] [address] Abs Jerome 0.42 k/uL Normal <0.87 [facility] Comment on above: Performed By: #### P T, PTT, AMYL, CMP, LIPA, PHOS ####[place] [address]#### TRANSF ####[place] [address]184[address] Abs Neut 2.87 k/uL Normal 1.45-7.50 [facility] Comment on above: Performed By: #### P T, PTT, AMYL, CMP, LIPA, PHOS ####[place] [address]#### TRANSF ####[place] [address] [place] [address] Basophils/100 WBC Auto (Bld) 0.4 % Normal [facility] Comment on above: Performed By: #### P T, PTT, AMYL, CMP, LIPA, PHOS ####[place] [address]#### TRANSF ####[place] [address] DTYPE Auto Diff Normal [facility] Comment on above: Performed By: #### P T, PTT, AMYL, CMP, LIPA, PHOS ####[place] [address]#### TRANSF ####[place] [address]184[address] Eosinophils 0.18 10*3/uL Normal <0.46 [facility] Comment on above: Performed By: #### P T, PTT, AMYL, CMP, LIPA, PHOS ####[place] [address]#### TRANSF ####[place] [address]184[address] Eosinophils/100 leukocytes 3.7 % Normal [facility] Comment on above: Performed By: #### P T, PTT, AMYL, CMP, LIPA, PHOS ####[place] [address]#### TRANSF ####[place] 286184-5755 Erythrocyte distribution width Auto Ratio (RBC) 15.4 % High 11.5-15.0 [facility] Comment on above: Performed By: #### P T, PTT, AMYL, CMP, LIPA, PHOS ####[place] [address]#### TRANSF ####[place] [phone] Erythrocytes (RBC) 2.91 10*6/uL Low 4.20-6.00 [facility] Comment on above: Performed By: #### P T, PTT, AMYL, CMP, LIPA, PHOS ####[address]#### TRANSF ####[place] [address]184[address] Hematocrit (HCT) 24.9 % Low 39.0-51.0 [facility] Comment on above: Performed By: #### P T, PTT, AMYL, CMP, LIPA, PHOS ####[place] [address]#### TRANSF ####[place] [address]184[address] Hemoglobin mass conc (Bld) 7.9 g/dL Low 13.0-17.0 [facility] Comment on above: Performed By: #### P T, PTT, AMYL, CMP, LIPA, PHOS ####[place] [address]#### TRANSF ####[place] [phone] Lymphocytes 1.44 10*3/uL Normal 1.00-4.00 [facility] Comment on above: Performed By: #### P T, PTT, AMYL, CMP, LIPA, PHOS ####[address]#### TRANSF ####[place] [address]184[address] Lymphocytes/100 leukocytes 29.2 % Normal [facility] Comment on above: Performed By: #### P T, PTT, AMYL, CMP, LIPA, PHOS ####[place] [phone]#### TRANSF ####[place] [address]184[address] MCH 27.1 pG Normal 26.0-34.0 [facility] Comment on above: Performed By: #### P T, PTT, AMYL, CMP, LIPA, PHOS ####[place] [address]#### TRANSF ####[place] [address]184[address] MCHC mass conc (RBC) 31.7 g/dL Normal 30.5-36.0 [facility] Comment on above: Performed By: #### P T, PTT, AMYL, CMP, LIPA, PHOS ####[place] [address]#### TRANSF ####[place] [address]184[address] MCV 85.6 fL Normal 80.0-100.0 [facility] Comment on above: Performed By: #### P T, PTT, AMYL, CMP, LIPA, PHOS ####[place] [address]#### TRANSF ####[place] [address]184[address] Monocytes/100 leukocytes 8.5 % Normal [facility] Comment on above: Performed By: #### P T, PTT, AMYL, CMP, LIPA, PHOS ####[address]#### TRANSF ####[place] [address]184[address] Neutrophils/100 WBC Auto (Bld) 58.2 % Normal [facility] Comment on above: Performed By: #### P T, PTT, AMYL, CMP, LIPA, PHOS ####[place] [address]206[address]#### TRANSF ####[place] [phone] Platelet mean volume (PMV) 9.4 fL Normal 9.0-12.7 [facility] Comment on above: Performed By: #### P T, PTT, AMYL, CMP, LIPA, PHOS ####[address]#### TRANSF ####[phone] Platelets 505 10*3/uL High 150-400 [facility] Comment on above: Performed By: #### P T, PTT, AMYL, CMP, LIPA, PHOS ####[address]#### TRANSF ####[place] [address]184[address] WBC (Leukocytes) 4.93 10*3/uL Normal 3.70-11.00 [facility] Comment on above: Performed By: #### P T, PTT, AMYL, CMP, LIPA, PHOS ####[address]#### TRANSF ####[place] [phone] Hepatic Functn Panelon 08-30 Alanine aminotransferase (ALT) 34 U/L Normal 5-50 [facility] Comment on above: Performed By: #### P T, PTT, AMYL, CMP, LIPA, PHOS ####[place] [address]#### TRANSF ####[place] [phone] Albumin 3.0 g/dL Low 3.5-5.0 [facility] Comment on above: Performed By: #### P T, PTT, AMYL, CMP, LIPA, PHOS ####[place] [address]#### TRANSF ####[phone] Alkaline phosphatase (ALP) 480 U/L High 40-150 [facility] Comment on above: Performed By: #### P T, PTT, AMYL, CMP, LIPA, PHOS ####[place] [address]#### TRANSF ####[place] [address] Aspartate aminotransferase (AST) 41 U/L High 7-40 [facility] Comment on above: Performed By: #### P T, PTT, AMYL, CMP, LIPA, PHOS ####[place] [address]#### TRANSF ####[place] [address] Bilirubin (total) 0.5 mg/dL Normal 0.0-1.5 [facility] Comment on above: Performed By: #### P T, PTT, AMYL, CMP, LIPA, PHOS ####[place] [address]#### TRANSF ####[place] [address]184[address] Bilirubin,Conjugated <0.2 Normal 0.0-0.4 [facility] Comment on above: Performed By: #### P T, PTT, AMYL, CMP, LIPA, PHOS ####[place] [address]#### TRANSF ####[phone] Protein 6.6 g/dL Normal 6.0-8.4 [facility] Comment on above: Performed By: #### P T, PTT, AMYL, CMP, LIPA, PHOS ####[facility] [place], [place] [phone]#### TRANSF ####[facility] [place], [place] [phone] Magnesiumon 08-30-2017 Magnesium 2.3 mg/dL Normal 1.7-2.6 [facility] Comment on above: Performed By: #### P T, PTT, AMYL, CMP, LIPA, PHOS ####[facility] [place], [place] [phone]#### TRANSF ####[place] [address] [place], [place] [phone] PROGRESSon 08-30-2017 PROGRESS HNO ID: [id number] thor: Michael Cedillo) AugustinService: General SurgeryAuthor Type: PhysicianType: Progress NotesFiled: 08/30/2017 10:38 AMNote Text: SURGERY INPATIENT PROGRESS NOTESName: Rocio Boudreaux: [id number] and Plan:62 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 Doing well.-Continue fulls with supplements-Capped PTHC, no increased drainage from other drains-Will follow up CMP-No Abx-No [place]-VTE Prophylaxis: enoxaparin, SCDs-Routine surgical care: IS, OOB- Will remove PICC line prior to discharge-Anticipate DC early next week, with [facility] or to SNFS: Resting well. No [...] acting) (HumaLOG) SUBCUTANEOUS w MEALSAND HSphenol 1 Evans (CHLORASEPTIC) 1 Evans MUCOUS MEMBRANE (TOPICAL MOUTH ANDTHROAT) q 2 [...] kg (192 lb) SpO2 99% BMI 29.19 kg/i4Ftfmka/Output Summary (Last 24 hours) at 08/30/17 0850Last [...] clear drainage.Serena Trent, MDPGY -1 General SurgeryOhiohealth [facility]ide [facility] 20178:50 AMSTANNEKA NOTEI have independently seen and examined the patient today. I haveindependently reviewed all the imaging and the labs. I agree with keycomponents of the resident's note above. Care plan and decision making hasbeen discussed.PTC was capped, J-P continues to be serous, patient tolerated PTC cappingwithout any issuesAppropriate by mouth intakeDischarge planningToms MD Froilan, MPH, FACSGeneral/Trauma/HPB SurgeryPager: [phone] Cell: [phone] 2017 Normal [facility] Phosphoruson 08-30-2017 Phosphate 2.8 mg/dL Normal 2.5-4.5 [facility] Comment on above: Performed By: #### P T, PTT, AMYL, CMP, LIPA, PHOS ####[place] [phone]#### TRANSF ####[place] [phone] Basic Metabolic Panlon 08-29 Anion gap 10 mmol/L Normal 9-18 [facility] Comment on above: Performed By: #### P T, PTT, AMYL, CMP, LIPA, PHOS ####[address] [phone]#### TRANSF ####[place] [address] [place], [place] [phone] Calcium 8.4 mg/dL Low 8.5-10.5 [facility] Comment on above: Performed By: #### P T, PTT, AMYL, CMP, LIPA, PHOS ####[place] [address]#### TRANSF ####[place] [address] Chloride 103 mmol/L Normal 98-110 [facility] Comment on above: Performed By: #### P T, PTT, AMYL, CMP, LIPA, PHOS ####[place] [address]#### TRANSF ####[place] [address] CO2 26 mmol/L Normal 23-32 [facility] Comment on above: Performed By: #### P T, PTT, AMYL, CMP, LIPA, PHOS ####[place] [address]#### TRANSF ####[place] [address] Creatinine 0.66 mg/dL Low 0.70-1.40 [facility] Comment on above: Performed By: #### P T, PTT, AMYL, CMP, LIPA, PHOS ####[place] [address]#### TRANSF ####[place] [address] eGFR (non-black) mL/min/{1.73_m2} Normal >60 [facility] Comment on above: Performed By: #### P T, PTT, AMYL, CMP, LIPA, PHOS ####[place] [address]#### TRANSF ####[place] [address] Glucose mass conc 118 mg/dL High 65-100 [facility] Comment on above: Performed By: #### P T, PTT, AMYL, CMP, LIPA, PHOS ####[place] [address]#### TRANSF ####[address] Av[place] [address] Potassium molar conc 4.3 mmol/L Normal 3.5-5.0 [facility] Comment on above: Performed By: #### P T, PTT, AMYL, CMP, LIPA, PHOS ####[place] [address]#### TRANSF ####[place] [address]184[address] Sodium 139 mmol/L Normal 135-146 [facility] Comment on above: Performed By: #### P T, PTT, AMYL, CMP, LIPA, PHOS ####[place] [address]#### TRANSF ####[place] [address]184[address] Urea nitrogen 10 mg/dL Normal 10-25 [facility] Comment on above: Performed By: #### P T, PTT, AMYL, CMP, LIPA, PHOS ####[place] [address]#### TRANSF ####[place] [address]184[address] CBC and Differentialon 08-29 Abs Baso <0.03 Normal <0.11 [facility] Comment on above: Performed By: #### P T, PTT, AMYL, CMP, LIPA, PHOS ####[place] [address]#### TRANSF ####[address] AvT[place] [address] Abs Jerome 0.43 k/uL Normal <0.87 [facility] Comment on above: Performed By: #### P T, PTT, AMYL, CMP, LIPA, PHOS ####[place] [address]#### TRANSF ####[address] [place] [address] Abs Neut 2.71 k/uL Normal 1.45-7.50 [facility] Comment on above: Performed By: #### P T, PTT, AMYL, CMP, LIPA, PHOS ####[place] [address]#### TRANSF ####[place] [address] [place] [address] Basophils/100 WBC Auto (Bld) 0.4 % [facility] Comment on above: Performed By: #### P T, PTT, AMYL, CMP, LIPA, PHOS ####[place] [address]#### TRANSF ####[place] [address]184[address] DTYPE Auto Diff [facility] Comment on above: Performed By: #### P T, PTT, AMYL, CMP, LIPA, PHOS ####[place] [address]#### TRANSF ####[place] [address]184[address] Eosinophils 0.15 10*3/uL Normal <0.46 [facility] Comment on above: Performed By: #### P T, PTT, AMYL, CMP, LIPA, PHOS ####[place] [address]#### TRANSF ####[place] [address]184[address] Eosinophils/100 leukocytes 3.2 % Normal [facility] Comment on above: Performed By: #### P T, PTT, AMYL, CMP, LIPA, PHOS ####[place] [address]#### TRANSF ####[place] [address]184[address] Erythrocyte distribution width Auto Ratio (RBC) 15.1 % High 11.5-15.0 [facility] Comment on above: Performed By: #### P T, PTT, AMYL, CMP, LIPA, PHOS ####[place] [address]#### TRANSF ####[place] [address] Erythrocytes (RBC) 2.98 10*6/uL Low 4.20-6.00 [facility] Comment on above: Performed By: #### P T, PTT, AMYL, CMP, LIPA, PHOS ####[place] [address]#### TRANSF ####[place] [address] Hematocrit (HCT) 26.1 % Low 39.0-51.0 [facility] Comment on above: Performed By: #### P T, PTT, AMYL, CMP, LIPA, PHOS ####[place] [address]#### TRANSF ####[place] [address]184[address] Hemoglobin mass conc (Bld) 8.1 g/dL Low 13.0-17.0 [facility] Comment on above: Performed By: #### P T, PTT, AMYL, CMP, LIPA, PHOS ####[place] [address]#### TRANSF ####[place] [address] Lymphocytes 1.44 10*3/uL Normal 1.00-4.00 [facility] Comment on above: Performed By: #### P T, PTT, AMYL, CMP, LIPA, PHOS ####[place] [address]#### TRANSF ####[place] [address] Lymphocytes/100 leukocytes 30.3 % Normal [facility] Comment on above: Performed By: #### P T, PTT, AMYL, CMP, LIPA, PHOS ####[place] [address]#### TRANSF ####[place] [address] MCH 27.2 pG Normal 26.0-34.0 [facility] Comment on above: Performed By: #### P T, PTT, AMYL, CMP, LIPA, PHOS ####[place] [address]#### TRANSF ####[place] [address] MCHC mass conc (RBC) 31.0 g/dL Normal 30.5-36.0 [facility] Comment on above: Performed By: #### P T, PTT, AMYL, CMP, LIPA, PHOS ####[place] [address]#### TRANSF ####[place] [address] MCV 87.6 fL Normal 80.0-100.0 [facility] Comment on above: Performed By: #### P T, PTT, AMYL, CMP, LIPA, PHOS ####[place] [address]#### TRANSF ####[address] [place] [phone] Monocytes/100 leukocytes 9.1 % Normal [facility] Comment on above: Performed By: #### P T, PTT, AMYL, CMP, LIPA, PHOS ####[address]#### TRANSF ####[place] [phone] Neutrophils/100 WBC Auto (Bld) 57.0 % Normal [facility] Comment on above: Performed By: #### P T, PTT, AMYL, CMP, LIPA, PHOS ####[place] [address]#### TRANSF ####[place] [phone] Platelet mean volume (PMV) 9.5 fL Normal 9.0-12.7 [facility] Comment on above: Performed By: #### P T, PTT, AMYL, CMP, LIPA, PHOS ####[place] [address]#### TRANSF ####[place] [phone] Platelets 508 10*3/uL High 150-400 [facility] Comment on above: Performed By: #### P T, PTT, AMYL, CMP, LIPA, PHOS ####[address]#### TRANSF ####[place] [phone] WBC (Leukocytes) 4.75 10*3/uL Normal 3.70-11.00 [facility] Comment on above: Performed By: #### P T, PTT, AMYL, CMP, LIPA, PHOS ####[place] [address]#### TRANSF ####[facility] [place], [place] [phone] Magnesiumon 08-29-2017 Magnesium 2.2 mg/dL Normal 1.7-2.6 [facility] Comment on above: Performed By: #### P T, PTT, AMYL, CMP, LIPA, PHOS ####[facility] [place], [place] [phone]#### TRANSF ####[facility] [place], [place] [phone] NURSING PROGon 08-29-2017 NURSING PROG HNO ID: [id number] thor: Saima Kramer (Rn) Debra, RNService: (none)Author Type: Registered NurseType: Nursing Progress NoteFiled: 08/29/2017 4:09 PMNote Text: Nursing Progress NotePatient Name: Rocio JacksonMRN: [id number] Location: [place] [address]/[id number] ____Daily Note:Pt sitting in bed and upon [...] note was completed by: Saima Richardson RN [facility] PROGRESSon 08-29-2017 PROGRESS HNO ID: [id number] thor: Michael Cedillo) AugustinService: General SurgeryAuthor Type: PhysicianType: Progress NotesFiled: 08/29/2017 11:10 AMNote Text: SURGERY INPATIENT PROGRESS NOTESName: Rocio JacksonPETRONA: [id number] and Plan:62 year old male with duodenal [...] 5,000 Units SUBCUTANEOUS q 8 Hphenol 1 Evans (CHLORASEPTIC) 1 Evans MUCOUS MEMBRANE (TOPICAL MOUTH ANDTHROAT) q 2 [...] kg (192 lb) SpO2 97% BMI 29.19 kg/y5Qrckem/Output Summary (Last 24 hours) at 08/29/17 0737Last data filed at 08/29/17 0708 Gross per 24 hourIntake 2206 mlOutput 5475 mlNet -3269 mlGeneral Appearance: NADAbdomen: soft, non-tender, no distention. PTHC with bilious drainage, IRdrain with scant clear drainage.Akbar Lassiter [facility] SUR[facility] PGY-47:37 AM08/29/2017*A review of daily goals, [...] cap PTC.Michael Jolley MD, MPH, FACSGeneral/Trauma/HPB SurgeryPager: [phone] Cell: [phone] 2017 Normal [facility] Phosphoruson 08-29-2017 Phosphate 2.6 mg/dL Normal 2.5-4.5 [facility] Comment on above: Performed By: #### P T, PTT, AMYL, CMP, LIPA, PHOS ####[address] [phone]#### TRANSF ####[facility] [address] [place], [place] [phone] Basic Metabolic Panlon 08-28 Anion gap 10 mmol/L Normal 9-18 [facility] Comment on above: Performed By: #### P T, PTT, AMYL, CMP, LIPA, PHOS ####[address] [phone]#### TRANSF ####[place] [address] [place] [address] Calcium 8.8 mg/dL Normal 8.5-10.5 [facility] Comment on above: Performed By: #### P T, PTT, AMYL, CMP, LIPA, PHOS ####[place] [address]#### TRANSF ####[place] 286184[address] Chloride 102 mmol/L Normal 98-110 [facility] Comment on above: Performed By: #### P T, PTT, AMYL, CMP, LIPA, PHOS ####[place] [address]#### TRANSF ####[place] [address]184[address] CO2 26 mmol/L Normal 23-32 [facility] Comment on above: Performed By: #### P T, PTT, AMYL, CMP, LIPA, PHOS ####[place] [address]#### TRANSF ####[place] [address]184[address] Creatinine 0.71 mg/dL Normal 0.70-1.40 [facility] Comment on above: Performed By: #### P T, PTT, AMYL, CMP, LIPA, PHOS ####[place] [address]#### TRANSF ####[place] [address] eGFR (non-black) mL/min/{1.73_m2} Normal >60 [facility] Comment on above: Performed By: #### P T, PTT, AMYL, CMP, LIPA, PHOS ####[phone]#### TRANSF ####[place] [address]184[address] Glucose mass conc 138 mg/dL High 65-100 [facility] Comment on above: Performed By: #### P T, PTT, AMYL, CMP, LIPA, PHOS ####[place] [address]#### TRANSF ####[place] 286184[address] Potassium molar conc 4.5 mmol/L Normal 3.5-5.0 [facility] Comment on above: Performed By: #### P T, PTT, AMYL, CMP, LIPA, PHOS ####[place] [address]#### TRANSF ####[place] 286184[address] Sodium 138 mmol/L Normal 135-146 [facility] Comment on above: Performed By: #### P T, PTT, AMYL, CMP, LIPA, PHOS ####[place] [address]#### TRANSF ####[place] [address]184[address] Urea nitrogen 9 mg/dL Low 10-25 [facility] Comment on above: Performed By: #### P T, PTT, AMYL, CMP, LIPA, PHOS ####[place] [address]#### TRANSF ####[place] [address]184[address]5755 CASE MANAGEMon 08-28-2017 CASE MANAGEM HNO ID: [id number] thor: Alexandrea Tomas, RNService: Care ManagementAuthor Type: Registered NurseType: Care Mgt Progress NoteFiled: 08/28/2017 2:51 PMNote Text:CARE MANAGEMENT PROGRESS NOTESERVICE DATE: 08/28/2017SERVICE TIME: 2:48 PM LOS: 15 daysNeeds Prior to Discharge: To Be Determined Medical Clearance needed.GI Soft Diet.Pt Remains with int and ext bliliary drain.Plan is for SNF vs HHC when medically cleared,per [facility] in [place] [facility] notification is needed (not precert)CM remains available to assist with skilled dc needs.SIGNATURE: Alexandrea Tomas RN PATIENT NAME: Rocio JacksonDATE: August 28, 2017 : 2:47 PM PAGER/CONTACT #: [phone] Normal [facility] CBC and Differentialon 08-28 Abs Baso <0.03 Normal <0.11 [facility] Comment on above: Performed By: #### P T, PTT, AMYL, CMP, LIPA, PHOS ####[place] [address]#### TRANSF ####[place] [address]184[address] Abs Jerome 0.43 k/uL Normal <0.87 [facility] Comment on above: Performed By: #### P T, PTT, AMYL, CMP, LIPA, PHOS ####[place] [address]#### TRANSF ####[place] [address]184[address] Abs Neut 3.60 k/uL Normal 1.45-7.50 [facility] Comment on above: Performed By: #### P T, PTT, AMYL, CMP, LIPA, PHOS ####[place] [address]#### TRANSF ####[place] 286184[address]5755 Basophils/100 WBC Auto (Bld) 0.3 % Normal [facility] Comment on above: Performed By: #### P T, PTT, AMYL, CMP, LIPA, PHOS ####[place] [address]#### TRANSF ####[place] [address]184[address] DTYPE Auto Diff Normal [facility] Comment on above: Performed By: #### P T, PTT, AMYL, CMP, LIPA, PHOS ####[place] [address]#### TRANSF ####[place] 286184[address] Eosinophils 0.17 10*3/uL Normal <0.46 [facility] Comment on above: Performed By: #### P T, PTT, AMYL, CMP, LIPA, PHOS ####[place] [address]#### TRANSF ####[place] [address]184[address] Eosinophils/100 leukocytes 3.0 % Normal [facility] Comment on above: Performed By: #### P T, PTT, AMYL, CMP, LIPA, PHOS ####[place] [address]#### TRANSF ####[place] [address]184[address] Erythrocyte distribution width Auto Ratio (RBC) 15.5 % High 11.5-15.0 [facility] Comment on above: Performed By: #### P T, PTT, AMYL, CMP, LIPA, PHOS ####[place] [address]#### TRANSF ####[place] [address]184[address] Erythrocytes (RBC) 3.08 10*6/uL Low 4.20-6.00 [facility] Comment on above: Performed By: #### P T, PTT, AMYL, CMP, LIPA, PHOS ####[place] [address]#### TRANSF ####[place] [address]184[address] Hematocrit (HCT) 26.4 % Low 39.0-51.0 [facility] Comment on above: Performed By: #### P T, PTT, AMYL, CMP, LIPA, PHOS ####[place] [address]#### TRANSF ####[place] [address]184[address] Hemoglobin mass conc (Bld) 8.4 g/dL Low 13.0-17.0 [facility] Comment on above: Performed By: #### P T, PTT, AMYL, CMP, LIPA, PHOS ####[place] [address]#### TRANSF ####[place] [address]184[address] Lymphocytes 1.50 10*3/uL Normal 1.00-4.00 [facility] Comment on above: Performed By: #### P T, PTT, AMYL, CMP, LIPA, PHOS ####[place] [address]#### TRANSF ####[place] [address]184[address] Lymphocytes/100 leukocytes 26.2 % Normal [facility] Comment on above: Performed By: #### P T, PTT, AMYL, CMP, LIPA, PHOS ####[place] [address]#### TRANSF ####[place] [address]184-5[address] MCH 27.3 pG Normal 26.0-34.0 [facility] Comment on above: Performed By: #### P T, PTT, AMYL, CMP, LIPA, PHOS ####[place] [address]#### TRANSF ####[phone] MCHC mass conc (RBC) 31.8 g/dL Normal 30.5-36.0 [facility] Comment on above: Performed By: #### P T, PTT, AMYL, CMP, LIPA, PHOS ####[place] [address]#### TRANSF ####[place] [address]184[address] MCV 85.7 fL Normal 80.0-100.0 [facility] Comment on above: Performed By: #### P T, PTT, AMYL, CMP, LIPA, PHOS ####[place] [address]#### TRANSF ####[place] [address]184[address] Monocytes/100 leukocytes 7.5 % Normal [facility] Comment on above: Performed By: #### P T, PTT, AMYL, CMP, LIPA, PHOS ####[place] [address]#### TRANSF ####[place] [address]184[address] Neutrophils/100 WBC Auto (Bld) 63.0 % Normal [facility] Comment on above: Performed By: #### P T, PTT, AMYL, CMP, LIPA, PHOS ####[place] [address]#### TRANSF ####[place] [address]184[address] Platelet mean volume (PMV) 9.7 fL Normal 9.0-12.7 [facility] Comment on above: Performed By: #### P T, PTT, AMYL, CMP, LIPA, PHOS ####[place] [address]#### TRANSF ####[place] [phone] Platelets 518 10*3/uL High 150-400 [facility] Comment on above: Performed By: #### P T, PTT, AMYL, CMP, LIPA, PHOS ####[address]#### TRANSF ####[place] [address]184[address] WBC (Leukocytes) 5.72 10*3/uL Normal 3.70-11.00 [facility] Comment on above: Performed By: #### P T, PTT, AMYL, CMP, LIPA, PHOS ####[place] [address]#### TRANSF ####[place] [address]184[address] Magnesiumon 08-28-2017 Magnesium 2.2 mg/dL Normal 1.7-2.6 [facility] Comment on above: Performed By: #### P T, PTT, AMYL, CMP, LIPA, PHOS ####[address]#### TRANSF ####[place] [address]184[address] NURSING PROGon 08-28-2017 NURSING PROG HNO ID: [id number] thor: Pramod (Rn) MOUSTAPHA Mckennaervice: (none)Author Type: Registered NurseType: Nursing Progress NoteFiled: 08/28/2017 5:07 PMNote Text: Nursing Progress NotePatient Name: Rocio JacksonN: [id number] Location: [place] [address]/[id number] ____Daily Note: 08/28/17 0840 (late entry)- Patient [...] note was completed by: Pramod Mckenna RN [facility] PROGRESSon 08-28-2017 PROGRESS HNO ID: [id number] thor: Michael Cedillo) AugustinService: General SurgeryAuthor Type: PhysicianType: Progress NotesFiled: 08/28/2017 11:12 AMNote Text:PROGRESS NOTES - SURGICAL SERVICESPATIENT NAME: Rocio Boudreaux: [id number] HISTORY OF PRESENT ILLNESS:No acute events overnight. [...] dietDC planningToms Froilan MD, MPH, FACSGeneral/Trauma/HPB SurgeryPager: [phone] Cell: [phone] 2017 [facility] PT EDon 08-28-2017 PT ED HNO ID: [id number] thor: Yohana (Diet-T) AdrianService: Nutrition TherapyAuthor Type: Dietetic TechnicianType: Patient EducationFiled: 08/28/2017 1:24 PMNote Text:NUTRITION PATIENT EDUCATIONTOPIC: Survival Skills: DietPATIENT NAME: Rocio BrianDary: [id number] DATE: August 28, 2017Diagnosis: ADULT: Duodenal ObstructionREADINESS [...] Type: Routine Care/15 min 2 triston Mackey-tPager: [phone] [phone] PM Normal [facility] Phosphoruson 08-28-2017 Phosphate 3.4 mg/dL Normal 2.5-4.5 [facility] Comment on above: Performed By: #### P T, PTT, AMYL, CMP, LIPA, PHOS ####[facility] [place], [place] [phone]#### TRANSF ####[facility] [address] [place], [place] [phone] THERAPY NTon 08-28-2017 THERAPY NT HNO ID: [id number] thor: Saima Miranda (Cota)ervice: Occupational TherapyAuthor Type: Occupational Therapy AssistantType: Therapy (PT/OT/Speech/Resp)Filed: 08/28/2017 3:09 PMNote Text: -Attestation signed by Nolvia Reilly at 08/28/2017 3:48 PMI reviewed and agree with the documentation corresponding to this therapyvisit.SIGNATURE: WENDY Cade/LDATE: August 28, 2017TIME: 3:48 PM Oc cupational Therapy TreatmentSERVICE DATE: 08/28/2017SERVICE TIME: 1420 to 1500ROOM: -YP7E-70 ( OPERATING ROOM)Recommended Discharge Disposition: Subacute/SNFRecommended Discharge Disposition Comments: (Pt hopes to continue therapyin SNF in [place])Anticipated Discharge Needs: Supervision at HomePhysical Assist at Home for:Cleaning;Laundry;Meals;S hopping;Transportation;Ambul ationSupervision at Home due to: Other: See Comment (recent surgery)Recommended Discharge Equipment: Elastic Shoe Laces;Grab Bars-Shower;HandHeld Shower;Long Handled Shoe Horn;Long Handled Sponge;WheeledWalker;Focused Factory Manager ;Sock Aide;Shower ChairOT Recommendations to Nursing: OOB [...] Diagnosis: Reduced mobility-otherInterventions Provided: Self Custodial Management (36815);TherapeuticActivity (24385)Therapeutic Activity (19880) Treatment Minutes: 101 unitSkilled Intervention(s): Instructed patient in log roll techniqueInstruction in sit to and from stand technique with proper hand placementand body positioning at edge of bed/chairInstruction of safe transport of items from room to room with use of bagon the ww.Self Custodial Management (54246) Treatment Minutes: 302 unitsSkilled Intervention(s): Provided instruction, cuing and facilitation forlower body dressing .Instructed pt on use of tech brazer tester to zee/doff pants, underwear, shoes inorder to [...] G CODE:OT 6 Clicks Score: 18 (08/28/17 1420)Self Care Current Status (G8987): CK (08/28/17 1420)Self [...] RE: Saima TRACY Spencer PATIENT NAME: Rocio BriandonnyDATE: August 28, 2017 : 3:04 PM PAGER: [phone] [facility] THERAPY NT HNO ID: [id number] thor: Saima Miranda (Cota)ervice: Occupational TherapyAuthor Type: Occupational Therapy AssistantType: Therapy (PT/OT/Speech/Resp)Filed: 08/28/2017 12:27 PMNote Text: -Attestation signed by Nolvia Gamez) Logar at 08/28/2017 1:15 PMI reviewed and agree with the documentation corresponding to this therapyvisit.SIGNATURE: WENDY Cade/LDATE: August 28, 2017TIME: 1:15 PM OC CUPATIONAL THERAPY MISSED VISITSERVICE DATE: 08/28/2017SERVICE TIME: 1148 to 1148ROOM: [place] [address] ( OPERATING ROOM)Attempted Treatment. Patient not seen due to Eating.Will attempt again asschedule permits.SIGNATURE: TRACY Dumont PATIENT NAME: Rocio JacksonDATE: August 28, 2017 : 12:27 PM PAGER/CONTACT #:[phone] [facility] BRIEF OP NOTon 08-27-2017 BRIEF OP NOT HNO ID: [id number] thor: Juan AgueroService: RadiologyAuthor Type: PhysicianType: Brief Op NoteFiled: 08/27/2017 11:09 AMNote Text:OPERATIVE/PROCEDURE REPORTLOG ID: [id number]/Procedure Date: 08/19/2017Incision/Procedure Start Time:Incision Close/Procedure End Time:Surgeon(s)/Proceduralis t(s) and Machine Umbrella Tipper(s):Surgeon(s) and Role: * Vanessa Finley Additional StaffProcedure(s):Patient [...] assistance.SIGNATURE: Juan Aguero MD PATIENT NAME: Rocio Sibley: August 27, 2017 : 11:02 AM PAGER/CONTACT #: [phone] Normal [facility] Basic Metabolic Panlon 08-27 Anion gap 9 mmol/L Normal 9-18 [facility] Comment on above: Performed By: #### P T, PTT, AMYL, CMP, LIPA, PHOS ####[place] [address]#### TRANSF ####[place] [address] [place] [phone] Calcium 8.5 mg/dL Normal 8.5-10.5 [facility] Comment on above: Performed By: #### P T, PTT, AMYL, CMP, LIPA, PHOS ####[place] [address]#### TRANSF ####[place] [address] [address] [phone] Chloride 102 mmol/L Normal 98-110 [facility] Comment on above: Performed By: #### P T, PTT, AMYL, CMP, LIPA, PHOS ####[place] [phone]#### TRANSF ####[place] [address] [address] [phone] CO2 27 mmol/L Normal 23-32 [facility] Comment on above: Performed By: #### P T, PTT, AMYL, CMP, LIPA, PHOS ####[address]#### TRANSF ####[place] [phone] Creatinine 0.66 mg/dL Low 0.70-1.40 [facility] Comment on above: Performed By: #### P T, PTT, AMYL, CMP, LIPA, PHOS ####[place] [address]#### TRANSF ####[place] [phone] eGFR (non-black) mL/min/{1.73_m2} Normal >60 [facility] Comment on above: Performed By: #### P T, PTT, AMYL, CMP, LIPA, PHOS ####[address]#### TRANSF ####[place] [phone] Glucose mass conc 105 mg/dL High 65-100 [facility] Comment on above: Performed By: #### P T, PTT, AMYL, CMP, LIPA, PHOS ####[place] [address]#### TRANSF ####[place] [phone] Potassium molar conc 4.4 mmol/L Normal 3.5-5.0 [facility] Comment on above: Performed By: #### P T, PTT, AMYL, CMP, LIPA, PHOS ####[address]#### TRANSF ####[place] [phone] Sodium 138 mmol/L Normal 135-146 [facility] Comment on above: Performed By: #### P T, PTT, AMYL, CMP, LIPA, PHOS ####[place] [phone] [place] [phone]#### TRANSF ####[place] [phone] [place] [phone] Urea nitrogen 11 mg/dL Normal 10-25 [facility] Comment on above: Performed By: #### P T, PTT, AMYL, CMP, LIPA, PHOS ####[place] [phone]#### TRANSF ####[place] [phone] [place] [phone] CASE MANAGEMon 08-27-2017 CASE MANAGEM HNO ID: [id number] thor: Catherine Humphries (Rn) Leeann, RNService: Case ManagementAuthor Type: Registered NurseType: Care Mgt Progress NoteFiled: 08/27/2017 4:26 PMNote Text:CARE MANAGEMENT PROGRESS NOTESERVICE DATE: 08/27/2017SERVICE TIME: 4:15 pm LOS: 14 daysMet with patient and sister Briana at bedside. Due to patient's currentclinical status, and the fact that he is single and lives alone, thepatient has elected to pursue placement at [facility] in [facility] [place]. Updates sent to [facility] SNF. will continue to followplan of care to assist with discharge planning.SIGNATURE: Catherine Bradshaw RN PATIENT NAME: Rocio JacksonDATE: August 27, 2017 : 4:18 PM PAGER/CONTACT #: [phone] Normal [facility] CBC and Differentialon 08-27 Abs Baso 0.03 k/uL Normal <0.11 [facility] Comment on above: Performed By: #### P T, PTT, AMYL, CMP, LIPA, PHOS ####[place] [phone]#### TRANSF ####[place] [address] Abs Jerome 0.29 k/uL Normal <0.87 [facility] Comment on above: Performed By: #### P T, PTT, AMYL, CMP, LIPA, PHOS ####[place] [address]#### TRANSF ####[place] [address] Abs Neut 3.08 k/uL Normal 1.45-7.50 [facility] Comment on above: Performed By: #### P T, PTT, AMYL, CMP, LIPA, PHOS ####[place] [address]#### TRANSF ####[place] [address] Basophils/100 WBC Auto (Bld) 0.6 % Normal [facility] Comment on above: Performed By: #### P T, PTT, AMYL, CMP, LIPA, PHOS ####[place] [address]#### TRANSF ####[place] [address] DTYPE Auto Diff Normal [facility] Comment on above: Performed By: #### P T, PTT, AMYL, CMP, LIPA, PHOS ####[place] [address]#### TRANSF ####[place] [address] Eosinophils 0.19 10*3/uL Normal <0.46 [facility] Comment on above: Performed By: #### P T, PTT, AMYL, CMP, LIPA, PHOS ####[place] [address]#### TRANSF ####[place] [address] Eosinophils/100 leukocytes 3.7 % Normal [facility] Comment on above: Performed By: #### P T, PTT, AMYL, CMP, LIPA, PHOS ####[place] [address]#### TRANSF ####[place] [address] Erythrocyte distribution width Auto Ratio (RBC) 15.6 % High 11.5-15.0 [facility] Comment on above: Performed By: #### P T, PTT, AMYL, CMP, LIPA, PHOS ####[place] [address]#### TRANSF ####[place] [address] Erythrocytes (RBC) 2.90 10*6/uL Low 4.20-6.00 [facility] Comment on above: Performed By: #### P T, PTT, AMYL, CMP, LIPA, PHOS ####[place] [address]#### TRANSF ####[place] [address] Hematocrit (HCT) 25.1 % Low 39.0-51.0 [facility] Comment on above: Performed By: #### P T, PTT, AMYL, CMP, LIPA, PHOS ####[place] [address]#### TRANSF ####[place] [address] Hemoglobin mass conc (Bld) 8.0 g/dL Low 13.0-17.0 [facility] Comment on above: Performed By: #### P T, PTT, AMYL, CMP, LIPA, PHOS ####[place] [address]#### TRANSF ####[place] [phone] Lymphocytes 1.56 10*3/uL Normal 1.00-4.00 [facility] Comment on above: Performed By: #### P T, PTT, AMYL, CMP, LIPA, PHOS ####[place] [address]#### TRANSF ####[place] [address] Lymphocytes/100 leukocytes 30.3 % Normal [facility] Comment on above: Performed By: #### P T, PTT, AMYL, CMP, LIPA, PHOS ####[place] [address]#### TRANSF ####[place] [address] MCH 27.6 pG Normal 26.0-34.0 [facility] Comment on above: Performed By: #### P T, PTT, AMYL, CMP, LIPA, PHOS ####[place] [address]#### TRANSF ####[place] [phone] MCHC mass conc (RBC) 31.9 g/dL Normal 30.5-36.0 [facility] Comment on above: Performed By: #### P T, PTT, AMYL, CMP, LIPA, PHOS ####[place] [address]#### TRANSF ####[place] [address] MCV 86.6 fL Normal 80.0-100.0 [facility] Comment on above: Performed By: #### P T, PTT, AMYL, CMP, LIPA, PHOS ####[place] [address]#### TRANSF ####[address]CEm[address] [place] [phone] Monocytes/100 leukocytes 5.6 % Normal [facility] Comment on above: Performed By: #### P T, PTT, AMYL, CMP, LIPA, PHOS ####[place] [address]#### TRANSF ####[address]Selena [place] [phone] Neutrophils/100 WBC Auto (Bld) 59.8 % Normal [facility] Comment on above: Performed By: #### P T, PTT, AMYL, CMP, LIPA, PHOS ####[place] [address]#### TRANSF ####[place] [phone] Platelet mean volume (PMV) 9.2 fL Normal 9.0-12.7 [facility] Comment on above: Performed By: #### P T, PTT, AMYL, CMP, LIPA, PHOS ####[place] [address]#### TRANSF ####[place] [address] Platelets 481 10*3/uL High 150-400 [facility] Comment on above: Performed By: #### P T, PTT, AMYL, CMP, LIPA, PHOS ####[place] [address]#### TRANSF ####[address]CEmily [place] [phone] WBC (Leukocytes) 5.15 10*3/uL Normal 3.70-11.00 [facility] Comment on above: Performed By: #### P T, PTT, AMYL, CMP, LIPA, PHOS ####[facility] [place], [place] [phone]#### TRANSF ####[facility] [address] [place], [place] [phone] IR EXCHANGE CATH BILI DRAINo n 08-27-2017 [...] Air Kerma: 2083.0 mGyDose Area Product (DAP): 018758.0 mGy*ih7Rxafdn Time: 14:00 min:secRadiation dose exceed 5 Gy: NoIf radiation dose exceeded 5 Gy, was counseling and instructional brochure provided: N/ATECHNIQUE: The patient was prepped and draped using all elements of maximal sterile barrier technique (cap, mask, sterile gown, sterile gloves, a large sterile sheet, hand hygiene and cutaneous antisepsis)After local anesthesia, the indwelling 10 Moldovan right internal/external drain was removed over a wire and a long sheath was placed. Cholangiogram was performed. Using a KMP catheter and Glidewire, access was obtained into the first part of the duodenum and then into the third part of the duodenum and contrast injection was performed to assess for duodenal stricture. Over an Amplatz wire, a 12 Moldovan right internal/external drain was placed with the [...] of Removed Specimens: noneATTENDING RADIOLOGIST: Juan Aguero M.D.PRINTER SLOTTER OPERATOR: NoneThe procedure was performed by the: attending radiologist, without an treasury assistant.The attending radiologist performed the following procedural [...] changed. Please maintain this tube to external bag.Ditch Cleaner: PSCB Transcribe Date/Time: Aug 27 2017 2:25PDictated by : JUAN AGUERO MDThis examination was interpreted and the report reviewed and electronically signed by: JUAN AGUERO MD on Aug 27 2017 4:27PM EST Normal [facility] Magnesiumon 08-27-2017 Magnesium 2.2 mg/dL Normal 1.7-2.6 [facility] Comment on above: Performed By: #### P T, PTT, AMYL, CMP, LIPA, PHOS ####[facility] [place], [place] [phone]#### TRANSF ####[facility] [place], [place] [phone] PROGRESSon 08-27-2017 PROGRESS HNO ID: [id number] thor: Lee Ann Thao, ASHLEYervice: General SurgeryAuthor Type: ResidentType: Progress NotesFiled: 08/27/2017 8:05 AMNote Text:PROGRESS NOTES - SURGICAL SERVICESPATIENT NAME: Rociomarisa HayesN: [id number] HISTORY OF PRESENT ILLNESS:No acute events overnight. [...] (billious, 1.3L)CBC, Coags, BMP, Mg, PhosRecent Labs 08/25/18036008/24/1803WBC 6.83 5.66 5.48 --HB 8.3* 8.0* 7.9* [...] Carolina Thao MD8:02 AM August 27, 2017PAGER: [phone] [facility] PT EDon 08-27-2017 PT ED HNO ID: [id number] thor: Lee Ann (Rn) MOUSTAPHA Drakeervice: RadiologyAuthor Type: Registered NurseType: Patient EducationFiled: 08/27/2017 10:43 AMNote Text:PATIENT EDUCATION TOPIC: PROCEDURE / SURGERY: Procedure/Surgery:cholangiog shanon and biliary tube exchange 12frPATIENT NAME: Rocio Boudreaux: [id number] LOCATION: [place] [address]/[id number] S TO LEARNCOGNITIVE ABILITY: Alert and orientedMOTIVATION [...] NoneElectronically Signed By: Lee Ann Drake RN [facility] Phosphoruson 08-27-2017 Phosphate 4.0 mg/dL Normal 2.5-4.5 [facility] Comment on above: Performed By: #### P T, PTT, AMYL, CMP, LIPA, PHOS ####[facility] [place], [place] [phone]#### TRANSF ####[facility] [address] [place], [place] [phone] THERAPY NTon 08-27-2017 THERAPY NT HNO ID: [id number] thor: Mandi Bowmanervice: Occupational TherapyAuthor Type: Occupational TherapistType: Therapy (PT/OT/Speech/Resp)Filed: 08/27/2017 3:16 PMNote Text:OCCUPATIONAL THERAPY MISSED VISITSERVICE DATE: 08/27/2017SERVICE TIME: 1500 to 1500ROOM: [place] [address] ( OPERATING ROOM)Attempted Treatment. Patient not seen due to Other: See Comment(Cholangiogram Today).SIGNATURE: WENDY Arceo/Timo PATIENT NAME: Rocio VizcarraTE: August 27, 2017 : 3:16 PM PAGER/CONTACT #:[phone] [facility] THERAPY NT HNO ID: [id number] thor: Adela Holcomb) DangService: Physical TherapyAuthor Type: Physical Therapy AssistantType: Therapy (PT/OT/Speech/Resp)Filed: 08/27/2017 11:44 AMNote Text: -Attestation signed by Gonzales KenPt) Nola at 08/27/2017 11:44 AMI reviewed and agree with the assessment as documented above.SIGNATURE: Gonzales Vaca, PTDATE: August 27, 2017TIME: 11:44 AM PH YSICAL THERAPY MISSED VISITSERVICE DATE: 08/27/2017SERVICE TIME: 1110 to 1110ROOM: [place] [address] ( OPERATING ROOM)Attempted Treatment. 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 PATIENT NAME: Rocio VizcarraTE: August 27, 2017 : 11:44 AM PAGER/CONTACT #: [phone] Normal [facility] Basic Metabolic Panlon 08-26 Anion gap 11 mmol/L Normal 9-18 [facility] Comment on above: Performed By: #### P T, PTT, AMYL, CMP, LIPA, PHOS ####[place] [phone]#### TRANSF ####[place] [phone] Calcium 8.7 mg/dL Normal 8.5-10.5 [facility] Comment on above: Performed By: #### P T, PTT, AMYL, CMP, LIPA, PHOS ####[place] [phone]#### TRANSF ####[place] [phone] Chloride 101 mmol/L Normal 98-110 [facility] Comment on above: Performed By: #### P T, PTT, AMYL, CMP, LIPA, PHOS ####[place] [phone]#### TRANSF ####[place] [address] [place] [phone] CO2 26 mmol/L Normal 23-32 [facility] Comment on above: Performed By: #### P T, PTT, AMYL, CMP, LIPA, PHOS ####[place] [phone]#### TRANSF ####[place] [address] Creatinine 0.58 mg/dL Low 0.70-1.40 [facility] Comment on above: Performed By: #### P T, PTT, AMYL, CMP, LIPA, PHOS ####[address]#### TRANSF ####[place] [address] eGFR (non-black) mL/min/{1.73_m2} Normal >60 [facility] Comment on above: Performed By: #### P T, PTT, AMYL, CMP, LIPA, PHOS ####[address]#### TRANSF ####[place] [address] Glucose mass conc 124 mg/dL High 65-100 [facility] Comment on above: Performed By: #### P T, PTT, AMYL, CMP, LIPA, PHOS ####[place] [address]#### TRANSF ####[place] [address]184[address] Potassium molar conc 4.5 mmol/L Normal 3.5-5.0 [facility] Comment on above: Performed By: #### P T, PTT, AMYL, CMP, LIPA, PHOS ####[place] [phone]#### TRANSF ####[place] [address] Sodium 138 mmol/L Normal 135-146 [facility] Comment on above: Performed By: #### P T, PTT, AMYL, CMP, LIPA, PHOS ####[place] [address]#### TRANSF ####[place] [address]184[address] Urea nitrogen 11 mg/dL Normal 10-25 [facility] Comment on above: Performed By: #### P T, PTT, AMYL, CMP, LIPA, PHOS ####[place] [address]#### TRANSF ####[place] [phone] CBC and Differentialon 08-26 Abs Baso <0.03 Normal <0.11 [facility] Comment on above: Performed By: #### P T, PTT, AMYL, CMP, LIPA, PHOS ####[place] [address]#### TRANSF ####[place] [address] Abs Jerome 0.57 k/uL Normal <0.87 [facility] Comment on above: Performed By: #### P T, PTT, AMYL, CMP, LIPA, PHOS ####[place] [address]#### TRANSF ####[place] [address]184[address] Abs Neut 4.61 k/uL Normal 1.45-7.50 [facility] Comment on above: Performed By: #### P T, PTT, AMYL, CMP, LIPA, PHOS ####[place] [address]#### TRANSF ####[place] [address]184[address] Basophils/100 WBC Auto (Bld) 0.1 % Normal [facility] Comment on above: Performed By: #### P T, PTT, AMYL, CMP, LIPA, PHOS ####[place] [address]#### TRANSF ####[place] [address]184[address] DTYPE Auto Diff Normal [facility] Comment on above: Performed By: #### P T, PTT, AMYL, CMP, LIPA, PHOS ####[place] [address]#### TRANSF ####[place] [address] Eosinophils 0.20 10*3/uL Normal <0.46 [facility] Comment on above: Performed By: #### P T, PTT, AMYL, CMP, LIPA, PHOS ####[place] [address]#### TRANSF ####[place] [address] Eosinophils/100 leukocytes 2.9 % Normal [facility] Comment on above: Performed By: #### P T, PTT, AMYL, CMP, LIPA, PHOS ####[place] [address]#### TRANSF ####[place] [address] Erythrocyte distribution width Auto Ratio (RBC) 16.0 % High 11.5-15.0 [facility] Comment on above: Performed By: #### P T, PTT, AMYL, CMP, LIPA, PHOS ####[place] [address]#### TRANSF ####[place] [address] Erythrocytes (RBC) 3.00 10*6/uL Low 4.20-6.00 [facility] Comment on above: Performed By: #### P T, PTT, AMYL, CMP, LIPA, PHOS ####[place] [address]#### TRANSF ####[place] [address] Hematocrit (HCT) 26.0 % Low 39.0-51.0 [facility] Comment on above: Performed By: #### P T, PTT, AMYL, CMP, LIPA, PHOS ####[place] [address]#### TRANSF ####[place] [address] Hemoglobin mass conc (Bld) 8.3 g/dL Low 13.0-17.0 [facility] Comment on above: Performed By: #### P T, PTT, AMYL, CMP, LIPA, PHOS ####[place] [address]#### TRANSF ####[place] [address] Lymphocytes 1.44 10*3/uL Normal 1.00-4.00 [facility] Comment on above: Performed By: #### P T, PTT, AMYL, CMP, LIPA, PHOS ####[place] [address]#### TRANSF ####[place] [address] Lymphocytes/100 leukocytes 21.1 % Normal [facility] Comment on above: Performed By: #### P T, PTT, AMYL, CMP, LIPA, PHOS ####[place] [address]#### TRANSF ####[place] [address] MCH 27.7 pG Normal 26.0-34.0 [facility] Comment on above: Performed By: #### P T, PTT, AMYL, CMP, LIPA, PHOS ####[place] [address]#### TRANSF ####[place] [address] MCHC mass conc (RBC) 31.9 g/dL Normal 30.5-36.0 [facility] Comment on above: Performed By: #### P T, PTT, AMYL, CMP, LIPA, PHOS ####[place] [address]#### TRANSF ####[place] [address] MCV 86.7 fL Normal 80.0-100.0 [facility] Comment on above: Performed By: #### P T, PTT, AMYL, CMP, LIPA, PHOS ####[place] [address]#### TRANSF ####[place] [address] Monocytes/100 leukocytes 8.3 % Normal [facility] Comment on above: Performed By: #### P T, PTT, AMYL, CMP, LIPA, PHOS ####[place] [address]#### TRANSF ####[place] [address]184[address] Neutrophils/100 WBC Auto (Bld) 67.6 % Normal [facility] Comment on above: Performed By: #### P T, PTT, AMYL, CMP, LIPA, PHOS ####[place] [address]#### TRANSF ####[place] [phone] Platelet mean volume (PMV) 9.5 fL Normal 9.0-12.7 [facility] Comment on above: Performed By: #### P T, PTT, AMYL, CMP, LIPA, PHOS ####[place] [address]#### TRANSF ####[place] [address]184[address] Platelets 481 10*3/uL High 150-400 [facility] Comment on above: Performed By: #### P T, PTT, AMYL, CMP, LIPA, PHOS ####[place] [address]#### TRANSF ####[phone] WBC (Leukocytes) 6.83 10*3/uL Normal 3.70-11.00 [facility] Comment on above: Performed By: #### P T, PTT, AMYL, CMP, LIPA, PHOS ####[place] [address]#### TRANSF ####[phone] Magnesiumon 08-26-2017 Magnesium 2.3 mg/dL Normal 1.7-2.6 [facility] Comment on above: Performed By: #### P T, PTT, AMYL, CMP, LIPA, PHOS ####[place] [address]#### TRANSF ####[place] [phone] NURSING PROGon 08-26-2017 NURSING PROG HNO ID: [id number] thor: Saima Kramer (Rn) Debra, RNService: (none)Author Type: Registered NurseType: Nursing Progress NoteFiled: 08/26/2017 7:20 PMNote Text: Nursing Progress NotePatient Name: Rocio Boudreaux: [id number] Location: [place] [address]/[id number] ____Daily Note:IR called and stated that they will not be able to do procedureon pt this evening. Text page to gen surg to make aware.1900: Spoke w/ SROC - full liquid diet ordered and NPO after midnight.This note was completed by: Saima Richardson RN [facility] PROGRESSon 08-26-2017 PROGRESS HNO ID: [id number] thor: Michael Cedillo) AugustinService: General SurgeryAuthor Type: PhysicianType: Progress NotesFiled: 08/26/2017 8:48 PMNote Text:PROGRESS NOTES - SURGICAL SERVICESPATIENT NAME: Rocio Boudreaux: [id number] HISTORY OF PRESENT ILLNESS:No acute events overnight. [...] decision making hasbeen discussed.Doing okayPending tube cholangiogramToms Froilan MD, MPH, FACSGeneral/Trauma/HPB SurgeryPager: [phone] Cell: [phone] 2017 Normal [facility] Phosphoruson 08-26-2017 Phosphate 3.4 mg/dL Normal 2.5-4.5 [facility] Comment on above: Performed By: #### P T, PTT, AMYL, CMP, LIPA, PHOS ####[place] [address] [place], [place] [phone]#### TRANSF ####[facility] [place] [phone] ALLIED HEALTHon 08-25-2017 ALLIED HEALTH HNO ID: [id number] thor: Angelita Rosas (Chaplain)Service: Spiritual CareAuthor Type: ChaplainType: Allied HealthFiled: 08/25/2017 10:39 AMNote Text:SPIRITUAL CARE PROGRESS NOTESERVICE DATE: 08/25/2017SERVICE TIME: 10:40amSaw pt on PK3C per Spiritual Care referral. Pt's worship is listed as None in his EMR. [...] contact the Spiritual Care Department: Please call [phone].SIGNATURE: Chaplain Tasia PATIENT NAME: Rocio JacksonDATE: August 25, 2017 : 10:38 AM PAGER/CONTACT #: [phone] Normal [facility] Basic Metabolic Panlon 08-25 Anion gap 11 mmol/L Normal 9-18 [facility] Comment on above: Performed By: #### P T, PTT, AMYL, CMP, LIPA, PHOS ####[facility] [place], [place] [phone]#### TRANSF ####[facility] [place] [phone] Calcium 8.4 mg/dL Low 8.5-10.5 [facility] Comment on above: Performed By: #### P T, PTT, AMYL, CMP, LIPA, PHOS ####[place] [address]#### TRANSF ####[address] Av[place] [address] Chloride 101 mmol/L Normal 98-110 [facility] Comment on above: Performed By: #### P T, PTT, AMYL, CMP, LIPA, PHOS ####[place] [address]#### TRANSF ####[place] [address] CO2 26 mmol/L Normal 23-32 [facility] Comment on above: Performed By: #### P T, PTT, AMYL, CMP, LIPA, PHOS ####[place] [address]#### TRANSF ####[place] [address] Creatinine 0.62 mg/dL Low 0.70-1.40 [facility] Comment on above: Performed By: #### P T, PTT, AMYL, CMP, LIPA, PHOS ####[place] [address]#### TRANSF ####[place] [address] eGFR (non-black) mL/min/{1.73_m2} Normal >60 [facility] Comment on above: Performed By: #### P T, PTT, AMYL, CMP, LIPA, PHOS ####[place] [address]#### TRANSF ####[place] [address] Glucose mass conc 118 mg/dL High 65-100 [facility] Comment on above: Performed By: #### P T, PTT, AMYL, CMP, LIPA, PHOS ####[place] [address]#### TRANSF ####[place] [phone] Potassium molar conc 4.5 mmol/L Normal 3.5-5.0 [facility] Comment on above: Performed By: #### P T, PTT, AMYL, CMP, LIPA, PHOS ####[place] [address]#### TRANSF ####[place] [address] Sodium 138 mmol/L Normal 135-146 [facility] Comment on above: Performed By: #### P T, PTT, AMYL, CMP, LIPA, PHOS ####[place] [address]#### TRANSF ####[place] [address] Urea nitrogen 10 mg/dL Normal 10-25 [facility] Comment on above: Performed By: #### P T, PTT, AMYL, CMP, LIPA, PHOS ####[place] [address]#### TRANSF ####[place] [address] CASE MANAGEMon 08-25-2017 CASE MANAGEM HNO ID: [id number] thor: Alexandrea Arreola) Thom, RNService: Care ManagementAuthor Type: Registered NurseType: Care Mgt Progress NoteFiled: 08/25/2017 12:06 PMNote Text:MULTIDISCIPLINARY ROUNDSSERVICE DATE: 08/25/2017 ADMISSION DATE: 08/13/2017SERVICE TIME: 12:03 PM ANTICIPATED D/C DATE: 2-3 daysProblem List:ACTIVE PROBLEM LISTDuodenal ObstructionSevere Protein-Calorie Malnutrition (Hcc)Attendees Present at Rounds:Marble Rubber: Chelsea Washer Off/Machine Umbrella Tipper Nurse Washer Off: Jasper Worker: Roderick Nurse: Yohannes Discussed on Rounds:DietDischarge NeedsPlan of CareAnticipated Discharge Disposition:Home with Home Health Care vs SNFper discussion with Gerri Espinoza CNP.plan for Cholangiogram tomorrow.Last Vitals: BP 113/66 Pulse 72 Temp (Src) 98.2 (Oral) Resp 16 Ht5' 8 (1.73m) Wt 192 lb (87.1kg) SpO2 98% BMI 29.20 kg/(m2).Pt is accepted at [facility] in [place].Pt also has been accepted by [facility].Nursing: Fluid/Electrolyte Goal Target Achievement Date: 08/26/17Mobility Goal Target Achievement Date: 08/26/17Pain Goal Target Achievement Date: 08/26/17DOCUMENTED BY: Alexandrea Tomas RN PATIENT NAME: Rocio JacksonDATE: August 25, 2017 : 12:03 PM CSN: [id number] Normal [facility] CBC and Differentialon 08-25 Abs Baso <0.03 Normal <0.11 [facility] Comment on above: Performed By: #### P T, PTT, AMYL, CMP, LIPA, PHOS ####[place] [address]#### TRANSF ####[place] [address] Abs Jerome 0.46 k/uL Normal <0.87 [facility] Comment on above: Performed By: #### P T, PTT, AMYL, CMP, LIPA, PHOS ####[address]476-[address]#### TRANSF ####[place] [address] Abs Neut 3.52 k/uL Normal 1.45-7.50 [facility] Comment on above: Performed By: #### P T, PTT, AMYL, CMP, LIPA, PHOS ####[place] [address]#### TRANSF ####[address] [place] [address] Basophils/100 WBC Auto (Bld) 0.4 % Normal [facility] Comment on above: Performed By: #### P T, PTT, AMYL, CMP, LIPA, PHOS ####[place] [address]#### TRANSF ####[place] [address] DTYPE Auto Diff Normal [facility] Comment on above: Performed By: #### P T, PTT, AMYL, CMP, LIPA, PHOS ####[place] [address]#### TRANSF ####[place] [phone] Eosinophils 0.21 10*3/uL Normal <0.46 [facility] Comment on above: Performed By: #### P T, PTT, AMYL, CMP, LIPA, PHOS ####[place] [address]#### TRANSF ####[place] [address] Eosinophils/100 leukocytes 3.7 % Normal [facility] Comment on above: Performed By: #### P T, PTT, AMYL, CMP, LIPA, PHOS ####[place] [address]#### TRANSF ####[address] Av[address] [address] Erythrocyte distribution width Auto Ratio (RBC) 15.8 % High 11.5-15.0 [facility] Comment on above: Performed By: #### P T, PTT, AMYL, CMP, LIPA, PHOS ####[place] [address]#### TRANSF ####[place] [phone] Erythrocytes (RBC) 2.91 10*6/uL Low 4.20-6.00 [facility] Comment on above: Performed By: #### P T, PTT, AMYL, CMP, LIPA, PHOS ####[place] [address]#### TRANSF ####[place] [address] Hematocrit (HCT) 25.6 % Low 39.0-51.0 [facility] Comment on above: Performed By: #### P T, PTT, AMYL, CMP, LIPA, PHOS ####[place] [address]#### TRANSF ####[place] [address] Hemoglobin mass conc (Bld) 8.0 g/dL Low 13.0-17.0 [facility] Comment on above: Performed By: #### P T, PTT, AMYL, CMP, LIPA, PHOS ####[place] [address]#### TRANSF ####[place] [address] Lymphocytes 1.45 10*3/uL Normal 1.00-4.00 [facility] Comment on above: Performed By: #### P T, PTT, AMYL, CMP, LIPA, PHOS ####[place] [address]#### TRANSF ####[place] [address] Lymphocytes/100 leukocytes 25.6 % Normal [facility] Comment on above: Performed By: #### P T, PTT, AMYL, CMP, LIPA, PHOS ####[address]#### TRANSF ####[address]444-[address] MCH 27.5 pG Normal 26.0-34.0 [facility] Comment on above: Performed By: #### P T, PTT, AMYL, CMP, LIPA, PHOS ####[address]#### TRANSF ####[phone] MCHC mass conc (RBC) 31.3 g/dL Normal 30.5-36.0 [facility] Comment on above: Performed By: #### P T, PTT, AMYL, CMP, LIPA, PHOS ####[place] [address]#### TRANSF ####[address]444-[address]755 MCV 88.0 fL Normal 80.0-100.0 [facility] Comment on above: Performed By: #### P T, PTT, AMYL, CMP, LIPA, PHOS ####[place] [address]#### TRANSF ####[address]444-[address] Monocytes/100 leukocytes 8.1 % Normal [facility] Comment on above: Performed By: #### P T, PTT, AMYL, CMP, LIPA, PHOS ####[place] [address]#### TRANSF ####[address]444-[address] Neutrophils/100 WBC Auto (Bld) 62.2 % Normal [facility] Comment on above: Performed By: #### P T, PTT, AMYL, CMP, LIPA, PHOS ####[place] [address]#### TRANSF ####[place] [phone] Platelet mean volume (PMV) 10.1 fL Normal 9.0-12.7 [facility] Comment on above: Performed By: #### P T, PTT, AMYL, CMP, LIPA, PHOS ####[place] [address]#### TRANSF ####[place] [phone] Platelets 444 10*3/uL High 150-400 [facility] Comment on above: Performed By: #### P T, PTT, AMYL, CMP, LIPA, PHOS ####[place] [address]#### TRANSF ####[place] [phone] WBC (Leukocytes) 5.66 10*3/uL Normal 3.70-11.00 [facility] Comment on above: Performed By: #### P T, PTT, AMYL, CMP, LIPA, PHOS ####[place] [address]#### TRANSF ####[place] [phone] Magnesiumon 08-25-2017 Magnesium 2.3 mg/dL Normal 1.7-2.6 [facility] Comment on above: Performed By: #### P T, PTT, AMYL, CMP, LIPA, PHOS ####[place] [address]#### TRANSF ####[place] [address] [place], [place] [phone] NURSING PROGon 08-25-2017 NURSING PROG HNO ID: [id number] thor: Shavonne KenRn) [place], RNService: NursingAuthor Type: Registered NurseType: Nursing Progress NoteFiled: 08/25/2017 2:30 PMNote Text: Nursing Progress NotePatient Name: Rocio JacksonMRN: [id number] Location: [place] [address]/[id number] ____Daily Note:Pt A+Ox3, speech clear, flat affect. Skin pale and slightly jaundiced.NSR with occasional PVC's on case monitor. Abdomen soft, bowel soundspresent, +Flatus and [...] note was completed by: Shavonne Mays RN [facility] NUTRITIONon 08-25-2017 NUTRITION HNO ID: [id number] thor: Alise Segura) BarsaService: Nutrition TherapyAuthor Type: [...] Weight: 87?kgResting Metabolic Rate: 1661Estimated kilocalorie needs: 7755-7073?kilocalories determined by25-30?kcal/kgEstimated protein needs:113 - ?130?grams determined [...] kg (192 lb) SpO2 97% BMI 29.19 kg/q7Qdrduc Labs 0GLUC 118*BUN 10CREAT 0.62*NA 138K 4.5CHLOR [...] 5,000 Units SUBCUTANEOUS q 8 Hphenol 1 Evans (CHLORASEPTIC) 1 Evans MUCOUS MEMBRANE (TOPICAL MOUTH ANDTHROAT) q 2 [...] 2217 2125 1429 1930 629 Net (ml) -2210 -703 431 -2365 226Surgical Incision 08/14/17 0103 Abdomen - Laparoscopy [...] assistance and weekends please page theGroup Pager [phone] [facility] PROGRESSon 08-25-2017 PROGRESS HNO ID: [id number] thor: Michael Cedillo) AugustinService: General SurgeryAuthor Type: PhysicianType: Progress NotesFiled: 08/25/2017 11:42 AMNote Text:GENERAL SURGERY INPATIENT PROGRESS NOTENAME: Rocio JacksonMRN: [id number] 2017 7:52 AMASSESSMENT AND PLAN:Rocio Jackson is [...] kg (192 lb) SpO2 97% BMI 29.19 kg/u1Zwiunl: Breathing comfortably on RA, speaking in full sentencesAbdominal examination: Abdomen soft, non-distended, mildly tenderTubes/Drains/Stoma: PTHC drain in place, serosanguineous outputFlatus/Bowel movement: Bowel function +Nausea/Emesis: NegativePain Control: IV dilaudid PO tylenolRenal: UOP adequateAntibiotics: AugmentinPending labs/results: None. Culture grew streptococcus mutansDate 08/23/17 0700 - 08/24/17 0659 08/24/17 07 - 08/25/17 0659Shift 3262-4950 7411-6275 7973-8207 24 Hour Total 7449-2769 [id number] 24 Hour TotalINTAKE PO 1080 253 92 8889 PO 600 717 87 3899 Supplements (mL) 480 240 720 Shift Total 1080 720 60 1860OUTPUT Urine 3 101 104 0 0 Void (ml) 100 100 0 0 Urine Incontinence/Not Saved 1 x 1 x Urine Not Saved 3 1 4 Emesis 0 0 Emesis (ml) 0 0 Tubes 625 557 926 4850 300 300 Drain/Tube Output (Drain/Tube 08/15/17 1530 Assessment Right UpperAbdomen) 50 50 0 0 Drain/Tube Output (Drain/Tube 08/19/17 1443 Biliary Right Lateral;LowerQuadrant Abdomen) 625 916 797 2101 300 300 # of BMs Number of BMs 2 x 1 x 1 x 4 x 1 x 1 x Shift Total 625 964 771 9438 300 300Weight (kg) 87.1 87.1 87.1 87.1 [...] Ann Thao MD7:52 AM August 25, 2017PAGER: [phone](After 6pm and weekends please contact Surgery oncall [...] cap Noah Jolley MD, MPH, FACSGeneral/Trauma/HPB SurgeryPager: [phone] Cell: [phone] 2017 Normal [facility] Phosphoruson 08-25-2017 Phosphate 3.0 mg/dL Normal 2.5-4.5 [facility] Comment on above: Performed By: #### P T, PTT, AMYL, CMP, LIPA, PHOS ####[facility] [place], [place] [phone]#### TRANSF ####[facility] [address] [place], [place] [phone] THERAPY NTon 08-25-2017 THERAPY NT HNO ID: [id number] thor: Sujata (Pt) PapcunService: Physical TherapyAuthor Type: Physical TherapistType: Therapy (PT/OT/Speech/Resp)Filed: 08/25/2017 12:18 PMNote Text:Physical Therapy TreatmentSERVICE DATE: 08/25/2017SERVICE TIME: 1143 to 1206ROOM: -QT9X-54 ( OPERATING ROOM)Recommended Discharge Disposition: Home PTRecommended [...] internal biliary drain placement;cholangiogram planned tomorrow per [facility]. Requires skilled PT for forimprovement of [...] Reduced mobility-other;Muscle Weakness (generalized)Interventions Provided: Therapeutic Exercise (33667);Gait Training (16746)Therapeutic Exercise (58972) Treatment Minutes: 121 unitSkilled Intervention(s): Instruction in therapeutic exercise BLE seatedfor strengthening, cues for tempo.Gait Training (20708) Treatment Minutes: 111 unitSkilled Intervention(s): Instruction in [...] 25, 2017 : 12:16 PM PAGER/CONTACT #: [phone] [facility] ALLIED HEALTH 08-24-2017 ALLIED HEALTH HNO ID: [id number] thor: Albert Sutherland: (none)Author Type: (none)Type: Allied HealthFiled: 08/24/2017 6:37 PMNote Text: Radiology Service Progress NotePATIENT NAME: Rocio JacksonMRN: [id number] OF SERVICE: August 24, 2017TIME: 6:37 PMPATIENT IDENTITY VERIFICATION COMPLETED USING TWO (2) METHODS: Patientconfirmed name verbally and ID band matches..PATIENT GENDER DATA: MalePATIENT RELEVANT IMPLANT DATA REVIEWED: Not ApplicableRADIOLOGY DEPARTMENT: CT; Exam(s) Completed: Abdomen/PelvisPERIPHERAL IV DATA: Inpatient: see LDA documentationSIGNED BY: Albert Vaughan 2017 6:37 PM Normal [facility] CASE MANAGEMon 08-24-2017 CASE MANAGEM HNO ID: [id number] thor: Alexandrea (Rn) Thom, RNService: Care ManagementAuthor [...] Liquid dietSIGNATURE: Alexandrea Tomas RN PATIENT NAME: Rociomarisa JacksonDATE: August 24, 2017 : 10:39 AM PAGER/CONTACT #: [phone] Normal [facility] CBC and Differentialon 08-24 Abs Baso <0.03 Normal <0.11 [facility] Comment on above: Performed By: #### P T, PTT, AMYL, CMP, LIPA, PHOS ####[address]#### TRANSF ####[place] [address] Abs Jerome 0.51 k/uL Normal <0.87 [facility] Comment on above: Performed By: #### P T, PTT, AMYL, CMP, LIPA, PHOS ####[place] [address]#### TRANSF ####[place] [address] Abs Neut 3.42 k/uL Normal 1.45-7.50 [facility] Comment on above: Performed By: #### P T, PTT, AMYL, CMP, LIPA, PHOS ####[place] [address]#### TRANSF ####[place] [address] [place] [address] Basophils/100 WBC Auto (Bld) 0.4 % Normal [facility] Comment on above: Performed By: #### P T, PTT, AMYL, CMP, LIPA, PHOS ####[place] [address]#### TRANSF ####[place] [address] DTYPE Auto Diff Normal [facility] Comment on above: Performed By: #### P T, PTT, AMYL, CMP, LIPA, PHOS ####[place] [address]#### TRANSF ####[place] [address] Eosinophils 0.17 10*3/uL Normal <0.46 [facility] Comment on above: Performed By: #### P T, PTT, AMYL, CMP, LIPA, PHOS ####[place] [address]#### TRANSF ####[place] [address] Eosinophils/100 leukocytes 3.1 % Normal [facility] Comment on above: Performed By: #### P T, PTT, AMYL, CMP, LIPA, PHOS ####[place] [address]#### TRANSF ####[place] [address] Erythrocyte distribution width Auto Ratio (RBC) 16.1 % High 11.5-15.0 [facility] Comment on above: Performed By: #### P T, PTT, AMYL, CMP, LIPA, PHOS ####[place] [address]#### TRANSF ####[place] [phone] Erythrocytes (RBC) 2.87 10*6/uL Low 4.20-6.00 [facility] Comment on above: Performed By: #### P T, PTT, AMYL, CMP, LIPA, PHOS ####[place] [address]#### TRANSF ####[place] [phone] Hematocrit (HCT) 25.2 % Low 39.0-51.0 [facility] Comment on above: Performed By: #### P T, PTT, AMYL, CMP, LIPA, PHOS ####[place] [address]#### TRANSF ####[place] [phone] Hemoglobin mass conc (Bld) 7.9 g/dL Low 13.0-17.0 [facility] Comment on above: Performed By: #### P T, PTT, AMYL, CMP, LIPA, PHOS ####[place] [address]#### TRANSF ####[address] AvJanice Ville [phone] Lymphocytes 1.36 10*3/uL Normal 1.00-4.00 [facility] Comment on above: Performed By: #### P T, PTT, AMYL, CMP, LIPA, PHOS ####[place] [address]#### TRANSF ####[place] [phone] Lymphocytes/100 leukocytes 24.8 % Normal [facility] Comment on above: Performed By: #### P T, PTT, AMYL, CMP, LIPA, PHOS ####[place] [address]#### TRANSF ####[address]444-[address]755 MCH 27.5 pG Normal 26.0-34.0 [facility] Comment on above: Performed By: #### P T, PTT, AMYL, CMP, LIPA, PHOS ####[place] [address]#### TRANSF ####[place] [address] MCHC mass conc (RBC) 31.3 g/dL Normal 30.5-36.0 [facility] Comment on above: Performed By: #### P T, PTT, AMYL, CMP, LIPA, PHOS ####[place] [address]#### TRANSF ####[place] [address] MCV 87.8 fL Normal 80.0-100.0 [facility] Comment on above: Performed By: #### P T, PTT, AMYL, CMP, LIPA, PHOS ####[place] [address]#### TRANSF ####[place] [address] Monocytes/100 leukocytes 9.3 % Normal [facility] Comment on above: Performed By: #### P T, PTT, AMYL, CMP, LIPA, PHOS ####[place] [address]#### TRANSF ####[place] [phone] Neutrophils/100 WBC Auto (Bld) 62.4 % Normal [facility] Comment on above: Performed By: #### P T, PTT, AMYL, CMP, LIPA, PHOS ####[place] [address]#### TRANSF ####[address] AvSelena [place] [phone] Platelet mean volume (PMV) 9.6 fL Normal 9.0-12.7 [facility] Comment on above: Performed By: #### P T, PTT, AMYL, CMP, LIPA, PHOS ####[address]#### TRANSF ####[address] AvSelena [place] [phone] Platelets 393 10*3/uL Normal 150-400 [facility] Comment on above: Performed By: #### P T, PTT, AMYL, CMP, LIPA, PHOS ####[place] [address]#### TRANSF ####[place] [phone] WBC (Leukocytes) 5.48 10*3/uL Normal 3.70-11.00 [facility] Comment on above: Performed By: #### P T, PTT, AMYL, CMP, LIPA, PHOS ####[address]#### TRANSF ####[address] [place] [phone] CT ABD/PEL WO IVCONon 2017 CT ABD/PEL [...] DRAIN PLACEMENT.NEAR COMPLETE RESOLUTION OF PARA/SUBHEPATIC FLUID COLLECTION.Ditch Cleaner: NII Transcribe Date/Time: Aug 25 2017 8:07ADictated by : ASHLEY MORALES MDThis examination was interpreted and the report reviewed and electronically signed by: ASHLEY MORALES MD on Aug 25 2017 8:40AM [id number] Normal [facility] Magnesiumon 08-24-2017 Magnesium 2.3 mg/dL Normal 1.7-2.6 [facility] Comment on above: Performed By: #### P T, PTT, AMYL, CMP, LIPA, PHOS ####[facility] [place], [place] [phone]#### TRANSF ####[facility] [address] [place], [place] [phone] NURSING PROGon 08-24-2017 NURSING PROG HNO ID: [id number] thor: Shavonne (Rn) [place], RNService: NursingAuthor Type: Registered NurseType: Nursing Progress NoteFiled: 08/24/2017 4:58 PMNote Text: Nursing Progress NotePatient Name: Rocio JacksonMRN: [id number] Location: [place] [address]/[id number] ____Daily Note:Pt A+Ox3, flat affect, quiet. Speech clear. Skin pale and slightlyjaundiced. NSR on case monitor. Abdomen soft and tender, 3 lap [...] note was completed by: Shavonne Mays RN [facility] PROGRESSon 08-24-2017 PROGRESS HNO ID: [id number] thor: Michael Cedillo) AugustinService: General SurgeryAuthor Type: PhysicianType: Progress NotesFiled: 08/24/2017 4:45 PMNote Text:GENERAL SURGERY INPATIENT PROGRESS NOTENAME: Rocio JacksonMRN: [id number] 2017 8:43 AMASSESSMENT AND PLAN:Rocio Jackson is [...] kg (192 lb) SpO2 97% BMI 29.19 kg/j4Zbtybh: Breathing comfortably on RA, speaking in full sentencesAbdominal examination: Abdomen soft, non-distended, mildly tenderTubes/Drains/Stoma: PTHC drain in place, serosanguineous output, 1275mlFlatus/Bowel movement: Bowel function +Nausea/Emesis: NegativePain Control: IV dilaudid PO tylenolRenal: UOP adequateAntibiotics: AugmentinPending labs/results: None. Culture grew streptococcus mutansDate 08/23/17 0700 - 08/24/17 0659 08/24/17 0700 - 08/25/17 0659Shift 4453-9777 5271-7716 1490-4404 24 Hour Total 7233-0701 3207-70405311-5659 24 Hour TotalINTAKE PO 1080 663 08 0068 PO 600 735 17 6751 Supplements (mL) 480 240 720 Shift Total 1080 720 60 1860OUTPUT Urine 3 101 104 0 0 Void (ml) 100 100 0 0 Urine Incontinence/Not Saved 1 x 1 x Urine Not Saved 3 1 4 Emesis 0 0 Emesis (ml) 0 0 Tubes 625 107 140 9042 300 300 Drain/Tube Output (Drain/Tube 08/15/17 1530 Assessment Right UpperAbdomen) 50 50 0 0 Drain/Tube Output (Drain/Tube 08/19/17 1443 Biliary Right Lateral;LowerQuadrant Abdomen) 625 897 740 4596 300 300 # of BMs Number of BMs 2 x 1 x 1 x 4 x 1 x 1 x Shift Total 625 957 050 1464 300 300Weight (kg) 87.1 87.1 87.1 87.1 87.1 87.1 87.1 87.1Recent Labs 02/26/93318308/24/1803WBC 5.48 -- -- 5.23 5.64HB 7.9* -- [...] and changes will bemade where applicable.Serena Trent MDSt. [facility], PGY - 1Pager #: [phone](After 6pm and weekends please contact Surgery oncall team)STAFF NOTEI have independently seen and examined the patient today. I haveindependently reviewed all the imaging and the labs. I agree with keycomponents of the resident's note above. Care plan and decision making hasbeen discussed.Doing well, no complaintsWill get CT to assess status of collectionsPTC cholangiogram to look for active leaksToms MD Froilan, MPH, FACSGeneral/Trauma/HPB SurgeryPager: [phone] Cell: [phone] 2017 Normal [facility] Phosphoruson 08-24-2017 Phosphate 2.6 mg/dL Normal 2.5-4.5 [facility] Comment on above: Performed By: #### P T, PTT, AMYL, CMP, LIPA, PHOS ####[facility] [place], [place] [phone]#### TRANSF ####[facility] [place], [place] [phone] THERAPY NTon 08-24-2017 THERAPY NT HNO ID: [id number] thor: Mandi (Ot) ShaquillenekService: Occupational TherapyAuthor Type: Occupational TherapistType: Therapy (PT/OT/Speech/Resp)Filed: 08/24/2017 1:30 PMNote Text:Occupational Therapy TreatmentSERVICE DATE: 08/24/2017SERVICE TIME: 1245 to 1300ROOM: [place] [address] ( OPERATING ROOM)Admit with Emesis X 1 Month, Abdominal Pain, Partial Duodenal Obstructionand Obstructive Jaundice, Abdominal Abscess, S/P CT Guided AbscessDrainage 08/15/17, S/P Recent Cholecystectomy 08/11/17, and ERCP 08/13/17?Recommended Discharge Disposition: Subacute/SNFRecommended Discharge Disposition Comments: (Pt hopes to continue therapyin SNF in [place])Anticipated Discharge Needs: Physical Assist at HomePhysical Assist at Home for: Ambulation;Cleaning;Laundry; Meals;MedicationManagement;S tairs;Self Care;Shopping;Transportation Recommended Discharge Equipment: Elastic Shoe Laces;Grab Bars-Shower;HandHeld Shower;Long Handled Shoe Horn;Long Handled Sponge;WheeledWalker;Focused Factory Manager ;Sock Aide;Shower ChairOT Recommendations to Nursing: OOB [...] History Relevantto Therapy Includes: DM, Glaucoma, HTN, GA. For Complete Past MedicalHistory Please Refer to [...] level. Pt is currently employed in a [employer], and[employer] watching TV. Pt has a small dog [...] dailyliving (ADL);Muscle Weakness (generalized)Interventions Provided: Therapeutic Activity (71914)Therapeutic Activity (30992) Treatment Minutes: 151 unitSkilled Intervention(s): Instructed patient [...] CK (08/24/171244)Self Care Goal Status (G8988): CJ (08/24/17 7943)Based on clinical assessment and the score on [...] August 24, 2017 : 1:28 PM PAGER: [phone] [facility] THERAPY NT HNO ID: [id number] thor: Adela [facility]) Carlin: Physical TherapyAuthor Type: Physical Therapy AssistantType: Therapy (PT/OT/Speech/Resp)Filed: 08/24/2017 10:53 AMNote Text: -Attestation signed by Tonia Schmitz at 08/24/2017 12:43 PMI reviewed and agree with the documentation corresponding to this therapyvisit.SIGNATURE: Tonia Schmitz, PTDATE: August 24, 2017TIME: 12:43 PM Ph ysical Therapy TreatmentSERVICE DATE: 08/24/2017SERVICE TIME: 1015 to 1040ROOM: [id number] ( OPERATING ROOM)Abdominal abscess; S/ P cholestectomy [...] Weakness (generalized);General symptoms andsigns-otherInterventions Provided: Therapeutic Exercise (78295);Gait Training (60633)Therapeutic Exercise (91647) Treatment Minutes: 101 unitSkilled Intervention(s): Instruction in therapeutic exercise for B LEstrengthening, balanceVerbal and tactile cuing provided for pace and performance; rest breaksprovided as neededGait Training (53643) Treatment Minutes: 151 unitSkilled Intervention(s): Instruction in [...] 24, 2017 : 10:46 AM PAGER/CONTACT #: [phone] Normal [facility] Basic Metabolic Panlon 08-23 Anion gap 10 mmol/L Normal 9-18 [facility] Comment on above: Performed By: #### P T, PTT, AMYL, CMP, LIPA, PHOS ####[place] [address]#### TRANSF ####[address] [address] Calcium 7.7 mg/dL Low 8.5-10.5 [facility] Comment on above: Performed By: #### P T, PTT, AMYL, CMP, LIPA, PHOS ####[place] [address]#### TRANSF ####[place] [address] Chloride 104 mmol/L Normal 98-110 [facility] Comment on above: Performed By: #### P T, PTT, AMYL, CMP, LIPA, PHOS ####[place] [address]#### TRANSF ####[place] [address] CO2 25 mmol/L Normal 23-32 [facility] Comment on above: Performed By: #### P T, PTT, AMYL, CMP, LIPA, PHOS ####[place] [address]#### TRANSF ####[address] [place] [address] Creatinine 0.55 mg/dL Low 0.70-1.40 [facility] Comment on above: Performed By: #### P T, PTT, AMYL, CMP, LIPA, PHOS ####[place] [address]#### TRANSF ####[facility] [place] [phone] eGFR (non-black) mL/min/{1.73_m2} Normal >60 [facility] Comment on above: Performed By: #### P T, PTT, AMYL, CMP, LIPA, PHOS ####[place] [address]#### TRANSF ####[place] [address] Glucose mass conc 123 mg/dL High 65-100 [facility] Comment on above: Performed By: #### P T, PTT, AMYL, CMP, LIPA, PHOS ####[place] [address]#### TRANSF ####[place] [address] Potassium molar conc 4.1 mmol/L Normal 3.5-5.0 [facility] Comment on above: Performed By: #### P T, PTT, AMYL, CMP, LIPA, PHOS ####[place] [address]#### TRANSF ####[place] [address] Sodium 139 mmol/L Normal 135-146 [facility] Comment on above: Performed By: #### P T, PTT, AMYL, CMP, LIPA, PHOS ####[place] [address]#### TRANSF ####[place] [address] Urea nitrogen 10 mg/dL Normal 10-25 [facility] Comment on above: Performed By: #### P T, PTT, AMYL, CMP, LIPA, PHOS ####[address]#### TRANSF ####[address], [place] [phone] Magnesiumon 08-23-2017 Magnesium 2.3 mg/dL Normal 1.7-2.6 [facility] Comment on above: Performed By: #### P T, PTT, AMYL, CMP, LIPA, PHOS ####[facility] [place], [place] [phone]#### TRANSF ####[facility] [place], [place] [phone] PROGRESSon 08-23-2017 PROGRESS HNO ID: [id number] thor: Aamir Damon: General SurgeryAuthor Type: PhysicianType: Progress NotesFiled: 08/23/2017 1:57 PMNote Text:PROGRESS NOTES - SURGICAL SERVICESPATIENT NAME: Rocio JacksonMRN: [id number] HISTORY OF PRESENT ILLNESS:No acute events overnight. [...] for home drain management-Dispo: Continue inpatient admissionSIGNATURE: Stacyteresa Christian MDDATE: August 23, 2017TIME: 9:16 AMPatient has no pain.PTC drainage has continued to increase, to about 2L over the past 24hours, and there is bile staining on the gauze around it. This suggestsworsening duodenal obstruction.Will remove the ROMINA today as it remains serosang.Other drain to stay as it is bile tinged.Plan per Dr. Jolley as he returns tomorrow.Patient remains clinically stable.Aamir Manning MDFebruary 2017 1:57 PM Normal [facility] Phosphoruson 08-23-2017 Phosphate 2.4 mg/dL Low 2.5-4.5 [facility] Comment on above: Performed By: #### P T, PTT, AMYL, CMP, LIPA, PHOS ####[facility] [place], [place] [phone]#### TRANSF ####[place] [address] Basic Metabolic Panlon 08-22 Anion gap 9 mmol/L Normal 9-18 [facility] Comment on above: Performed By: #### P T, PTT, AMYL, CMP, LIPA, PHOS ####[place] [address]#### TRANSF ####[place] [address] Calcium 7.7 mg/dL Low 8.5-10.5 [facility] Comment on above: Performed By: #### P T, PTT, AMYL, CMP, LIPA, PHOS ####[place] [address]#### TRANSF ####[place] [address] Chloride 105 mmol/L Normal 98-110 [facility] Comment on above: Performed By: #### P T, PTT, AMYL, CMP, LIPA, PHOS ####[place] [address]#### TRANSF ####[place] [address] CO2 25 mmol/L Normal 23-32 [facility] Comment on above: Performed By: #### P T, PTT, AMYL, CMP, LIPA, PHOS ####[place] [address]#### TRANSF ####[place] [phone] Creatinine 0.57 mg/dL Low 0.70-1.40 [facility] Comment on above: Performed By: #### P T, PTT, AMYL, CMP, LIPA, PHOS ####[place] [phone]#### TRANSF ####[place] [address] eGFR (non-black) mL/min/{1.73_m2} Normal >60 [facility] Comment on above: Performed By: #### P T, PTT, AMYL, CMP, LIPA, PHOS ####[place] [address]#### TRANSF ####[place] [address] Glucose mass conc 111 mg/dL High 65-100 [facility] Comment on above: Performed By: #### P T, PTT, AMYL, CMP, LIPA, PHOS ####[address]#### TRANSF ####[place] [address] Potassium molar conc 3.7 mmol/L Normal 3.5-5.0 [facility] Comment on above: Performed By: #### P T, PTT, AMYL, CMP, LIPA, PHOS ####[place] [address]#### TRANSF ####[place] [address] Sodium 139 mmol/L Normal 135-146 [facility] Comment on above: Performed By: #### P T, PTT, AMYL, CMP, LIPA, PHOS ####[place] [address]#### TRANSF ####[place] [address] Urea nitrogen 8 mg/dL Low 10-25 [facility] Comment on above: Performed By: #### P T, PTT, AMYL, CMP, LIPA, PHOS ####[phone]#### TRANSF ####[place] [address] CBC and Differentialon 08-22 Abs Baso <0.03 Normal <0.11 [facility] Comment on above: Performed By: #### P T, PTT, AMYL, CMP, LIPA, PHOS ####[place] [address]#### TRANSF ####[place] [address] Abs Jerome 0.41 k/uL Normal <0.87 [facility] Comment on above: Performed By: #### P T, PTT, AMYL, CMP, LIPA, PHOS ####[place] [address]#### TRANSF ####[place] [address] Abs Neut 3.57 k/uL Normal 1.45-7.50 [facility] Comment on above: Performed By: #### P T, PTT, AMYL, CMP, LIPA, PHOS ####[place] [address]#### TRANSF ####[place] [address] Basophils/100 WBC Auto (Bld) 0.2 % Normal [facility] Comment on above: Performed By: #### P T, PTT, AMYL, CMP, LIPA, PHOS ####[place] [address]#### TRANSF ####[place] [address] DTYPE Auto Diff Normal [facility] Comment on above: Performed By: #### P T, PTT, AMYL, CMP, LIPA, PHOS ####[place] [address]#### TRANSF ####[place] [address] Eosinophils 0.15 10*3/uL Normal <0.46 [facility] Comment on above: Performed By: #### P T, PTT, AMYL, CMP, LIPA, PHOS ####[place] [address]#### TRANSF ####[place] [address] Eosinophils/100 leukocytes 2.9 % Normal [facility] Comment on above: Performed By: #### P T, PTT, AMYL, CMP, LIPA, PHOS ####[place] [address]#### TRANSF ####[place] [address] Erythrocyte distribution width Auto Ratio (RBC) 16.1 % High 11.5-15.0 [facility] Comment on above: Performed By: #### P T, PTT, AMYL, CMP, LIPA, PHOS ####[place] [address]#### TRANSF ####[place] [address] Erythrocytes (RBC) 2.90 10*6/uL Low 4.20-6.00 [facility] Comment on above: Performed By: #### P T, PTT, AMYL, CMP, LIPA, PHOS ####[place] [address]#### TRANSF ####[place] [address] Hematocrit (HCT) 25.0 % Low 39.0-51.0 [facility] Comment on above: Performed By: #### P T, PTT, AMYL, CMP, LIPA, PHOS ####[address]#### TRANSF ####[place] [address] Hemoglobin mass conc (Bld) 8.1 g/dL Low 13.0-17.0 [facility] Comment on above: Performed By: #### P T, PTT, AMYL, CMP, LIPA, PHOS ####[place] [address]#### TRANSF ####[place] [address] Lymphocytes 1.09 10*3/uL Normal 1.00-4.00 [facility] Comment on above: Performed By: #### P T, PTT, AMYL, CMP, LIPA, PHOS ####[place] [address]#### TRANSF ####[place] [address] Lymphocytes/100 leukocytes 20.8 % Normal [facility] Comment on above: Performed By: #### P T, PTT, AMYL, CMP, LIPA, PHOS ####[place] [address]#### TRANSF ####[place] [address] MCH 27.9 pG Normal 26.0-34.0 [facility] Comment on above: Performed By: #### P T, PTT, AMYL, CMP, LIPA, PHOS ####[place] [address]#### TRANSF ####[place] [address] MCHC mass conc (RBC) 32.4 g/dL Normal 30.5-36.0 [facility] Comment on above: Performed By: #### P T, PTT, AMYL, CMP, LIPA, PHOS ####[place] [address]#### TRANSF ####[place] [phone] MCV 86.2 fL Normal 80.0-100.0 [facility] Comment on above: Performed By: #### P T, PTT, AMYL, CMP, LIPA, PHOS ####[place] [address]#### TRANSF ####[place] [address] Monocytes/100 leukocytes 7.8 % Normal [facility] Comment on above: Performed By: #### P T, PTT, AMYL, CMP, LIPA, PHOS ####[place] [address]#### TRANSF ####[place] [address] Neutrophils/100 WBC Auto (Bld) 68.3 % Normal [facility] Comment on above: Performed By: #### P T, PTT, AMYL, CMP, LIPA, PHOS ####[place] [address]#### TRANSF ####[phone] Platelet mean volume (PMV) 9.9 fL Normal 9.0-12.7 [facility] Comment on above: Performed By: #### P T, PTT, AMYL, CMP, LIPA, PHOS ####[place] [address]#### TRANSF ####[place] [phone] Platelets 354 10*3/uL Normal 150-400 [facility] Comment on above: Performed By: #### P T, PTT, AMYL, CMP, LIPA, PHOS ####[place] [address] [place], [place] [phone]#### TRANSF ####[facility] [place], [place] [phone] WBC (Leukocytes) 5.23 10*3/uL Normal 3.70-11.00 [facility] Comment on above: Performed By: #### P T, PTT, AMYL, CMP, LIPA, PHOS ####[place] [address] [place], [place] [phone]#### TRANSF ####[place] [address] [place], [place] [phone] CONSULT PROGon 08-22-2017 CONSULT PROG HNO ID: [id number] thor: Sabrina (Griselda) PineiroService: Cardiovascular DiseaseAuthor Type: Nurse PractitionerType: Consult [...] 5,000 Units SUBCUTANEOUS q 8 Hphenol 1 Evans (CHLORASEPTIC) 1 Evans MUCOUS MEMBRANE (TOPICAL MOUTH ANDTHROAT) q 2 [...] 2.9 2.9Liver Function, Amylase, AND LipaseRecent Labs [id number] 5.3*ALB 2.1*ALT 55*AST 42*ALKPHOS 241*TBILI 0.7SIGNATURE: Sabrina Arango, LUMBER TAILER PATIENT NAME: Rocio VizcarraTE: August 22, 2017 : 2:37 PM PAGER/CONTACT #: Normal [facility] Magnesiumon 08-22-2017 Magnesium 2.3 mg/dL Normal 1.7-2.6 [facility] Comment on above: Performed By: #### P T, PTT, AMYL, CMP, LIPA, PHOS ####[facility] [place] [phone]#### TRANSF ####[facility] [address] [place] [phone] NUTRITIONon 08-22-2017 NUTRITION HNO ID: [id number] thor: Alise (Gordo) BarsaService: Nutrition TherapyAuthor Type: Registered DietitianType: NutritionFiled: [...] Weight: 87?kgResting Metabolic Rate: 1661Estimated kilocalorie needs: 6511-5195?kilocalories determined by25-28?kcal/kgEstimated protein needs:113 - ?130?grams determined [...] 5,000 Units SUBCUTANEOUS q 8 Hphenol 1 Evans (CHLORASEPTIC) 1 Evans MUCOUS MEMBRANE (TOPICAL MOUTH ANDTHROAT) q 2 [...] 08/19/17 0659 08/19/17 0700 - 08/20/17 0659 [id number] - 08/21/17 0659 08/21/17 0700 - 08/22/17 [...] RD, LD PATIENT NAME: Rocio TorresdonnyDATE: August 22, 2017 : 2:06 PM PAGER: For further assistance and weekends please page theGroup Pager [phone] [facility] PROGRESSon 08-22-2017 PROGRESS HNO ID: [id number] thor: Aamir Damon: General SurgeryAuthor Type: PhysicianType: Progress NotesFiled: 08/22/2017 3:31 PMNote Text:PROGRESS NOTES - SURGICAL SERVICESPATIENT NAME: Rocio JacksonMRN: [id number] HISTORY OF PRESENT ILLNESS:No acute events overnight. [...] of bedx3- Strict I/Os- Will discuss to [place] ROMINA (at the bulb suction) and cap to [facility]- for home drain management-Dispo: Continue inpatient admissionSIGNATURE: Kayleen Gonzales, MDDATE: August 22, 2017TIME: 8:18 AMPatient denies any abdominal pain. Still gets full with only liquids.ROMINA serosang, no bileOther biloma drain bile tinged, but SS.PTC increased output to 1.2L? only temporary success to duodenal dilation.Will watch PTC output.Possible DC soon.Aamir Manning MDHavasu Regional Medical Centeruary 2017 3:31 PM Normal [facility] Phosphoruson 08-22-2017 Phosphate 2.6 mg/dL Normal 2.5-4.5 [facility] Comment on above: Performed By: #### P T, PTT, AMYL, CMP, LIPA, PHOS ####[facility] [place], [place] [phone]#### TRANSF ####[facility] [address] [place], [place] [phone] CASE MANAGEMon 08-21-2017 CASE MANAGEM HNO ID: [id number] thor: Alexandrea (Rn) Thom, RNService: Care ManagementAuthor Type: Registered NurseType: Care Mgt Progress NoteFiled: 08/21/2017 3:26 PMNote Text:CARE MANAGEMENT PROGRESS NOTESERVICE DATE: 08/21/2017SERVICE TIME: 10:02 AM LOS: 8 daysNeeds Prior to Discharge: To Be Determined;OT/PT EvaluationPer discussion with Dr Duffy.C [place].PT OT evals are needed, pt may also need Home PT OT.[facility] accepted pt for drain care.Pt will stay with his sister. Briana Muller at [place].[address] [facility] [address] was notified.[facility] for SN PT OT is planned.[facility] was updated.SIGNATURE: Alexandrea Thom, RN PATIENT NAME: Rocio Sibley: August 21, 2017 : 10:01 AM PAGER/CONTACT #: [phone] Normal [facility] CBC and Differentialon 08-21 Abs Baso <0.03 Normal <0.11 [facility] Comment on above: Performed By: #### P T, PTT, AMYL, CMP, LIPA, PHOS ####[place] [address]#### TRANSF ####[place] [phone] Abs Jerome 0.43 k/uL Normal <0.87 [facility] Comment on above: Performed By: #### P T, PTT, AMYL, CMP, LIPA, PHOS ####[place] [address]#### TRANSF ####[phone] Abs Neut 4.17 k/uL Normal 1.45-7.50 [facility] Comment on above: Performed By: #### P T, PTT, AMYL, CMP, LIPA, PHOS ####[place] [address]#### TRANSF ####[place] [address] Basophils/100 WBC Auto (Bld) 0.4 % [facility] Comment on above: Performed By: #### P T, PTT, AMYL, CMP, LIPA, PHOS ####[place] [address]#### TRANSF ####[phone] DTYPE Auto Diff Normal [facility] Comment on above: Performed By: #### P T, PTT, AMYL, CMP, LIPA, PHOS ####[place] [address]#### TRANSF ####[place] [address] Eosinophils 0.18 10*3/uL Normal <0.46 [facility] Comment on above: Performed By: #### P T, PTT, AMYL, CMP, LIPA, PHOS ####[place] [address]#### TRANSF ####[place] [address] Eosinophils/100 leukocytes 3.2 % Normal [facility] Comment on above: Performed By: #### P T, PTT, AMYL, CMP, LIPA, PHOS ####[place] [address]#### TRANSF ####[place] [address] Erythrocyte distribution width Auto Ratio (RBC) 15.9 % High 11.5-15.0 [facility] Comment on above: Performed By: #### P T, PTT, AMYL, CMP, LIPA, PHOS ####[place] [address]#### TRANSF ####[place] [address] Erythrocytes (RBC) 3.16 10*6/uL Low 4.20-6.00 [facility] Comment on above: Performed By: #### P T, PTT, AMYL, CMP, LIPA, PHOS ####[place] [address]#### TRANSF ####[place] [address] Hematocrit (HCT) 27.9 % Low 39.0-51.0 [facility] Comment on above: Performed By: #### P T, PTT, AMYL, CMP, LIPA, PHOS ####[place] [address]#### TRANSF ####[phone] Hemoglobin mass conc (Bld) 8.9 g/dL Low 13.0-17.0 [facility] Comment on above: Performed By: #### P T, PTT, AMYL, CMP, LIPA, PHOS ####[place] [address]#### TRANSF ####[place] [address] Lymphocytes 0.84 10*3/uL Low 1.00-4.00 [facility] Comment on above: Performed By: #### P T, PTT, AMYL, CMP, LIPA, PHOS ####[place] [address]#### TRANSF ####[place] [address] Lymphocytes/100 leukocytes 14.9 % Normal [facility] Comment on above: Performed By: #### P T, PTT, AMYL, CMP, LIPA, PHOS ####[place] [address]#### TRANSF ####[place] [address] MCH 28.2 pG Normal 26.0-34.0 [facility] Comment on above: Performed By: #### P T, PTT, AMYL, CMP, LIPA, PHOS ####[place] [address]#### TRANSF ####[place] [address] MCHC mass conc (RBC) 31.9 g/dL Normal 30.5-36.0 [facility] Comment on above: Performed By: #### P T, PTT, AMYL, CMP, LIPA, PHOS ####[place] [address]#### TRANSF ####[place] [address] [address] AveCEmily [place]ille [phone] MCV 88.3 fL Normal 80.0-100.0 [facility] Comment on above: Performed By: #### P T, PTT, AMYL, CMP, LIPA, PHOS ####[place] [address]#### TRANSF ####[address] AvTiffany [place]ille [address] Monocytes/100 leukocytes 7.6 % Normal [facility] Comment on above: Performed By: #### P T, PTT, AMYL, CMP, LIPA, PHOS ####[place] [address]#### TRANSF ####[phone] Neutrophils/100 WBC Auto (Bld) 73.9 % Normal [facility] Comment on above: Performed By: #### P T, PTT, AMYL, CMP, LIPA, PHOS ####[place] [address]#### TRANSF ####[place] [address] [phone] Platelet mean volume (PMV) 10.1 fL Normal 9.0-12.7 [facility] Comment on above: Performed By: #### P T, PTT, AMYL, CMP, LIPA, PHOS ####[place] [address]#### TRANSF ####[address] AvJanice [place] [phone] Platelets 380 10*3/uL Normal 150-400 [facility] Comment on above: Performed By: #### P T, PTT, AMYL, CMP, LIPA, PHOS ####[facility] [place], [place] [phone]#### TRANSF ####[place] [address] [place], [place] [phone] WBC (Leukocytes) 5.64 10*3/uL Normal 3.70-11.00 [facility] Comment on above: Performed By: #### P T, PTT, AMYL, CMP, LIPA, PHOS ####[facility] [place], [place] [phone]#### TRANSF ####[place] [address] [place], [place] [phone] CONSULT PROGon 08-21-2017 CONSULT PROG HNO ID: [id number] thor: Jessee Lottervice: Cardiovascular DiseaseAuthor Type: PhysicianType: [...] 5,000 Units SUBCUTANEOUS q 8 Hphenol 1 Evans (CHLORASEPTIC) 1 Evans MUCOUS MEMBRANE (TOPICAL MOUTH ANDTHROAT) q 2 [...] 0.9SIGNATURE: Sabrina Arango CNP PATIENT NAME: Rocio TorresdonnyDATE: August 21, 2017 : 2:42 PM PAGER/CONTACT #: [facility] CONSULT PROG HNO ID: [id number] thor: Linda (Cdl B Driver) MacangaService: GastroenterologyAuthor Type: Nurse PractitionerType: Consult Progress [...] 5,000 Units SUBCUTANEOUS q 8 Hphenol 1 Evans (CHLORASEPTIC) 1 Evans MUCOUS MEMBRANE (TOPICAL MOUTH ANDTHROAT) q 2 [...] for assistance with strengthening andnutritional support?Linda Avalos CNPCedar Mill Gastroenterology?Thank you for allowing us to participate in the care of this patient.Please call with questions or concerns.SIGNATURE: Linda Avalos CNP PATIENT NAME: Rocio JacksonDATE: August 21, 2017 : 9:34 AM PAGER: [phone] [facility] [facility] Magnesiumon 08-21-2017 Magnesium 2.2 mg/dL Normal 1.7-2.6 [facility] Comment on above: Performed By: #### P T, PTT, AMYL, CMP, LIPA, PHOS ####[facility] [place], [place] [phone]#### TRANSF ####[facility] [address] [place], [place] [phone] PROGRESSon 08-21-2017 PROGRESS HNO ID: [id number] thor: Khadar Chaneye: General SurgeryAuthor Type: PhysicianType: Progress NotesFiled: 08/21/2017 6:50 PMNote Text:PROGRESS NOTES - SURGICAL SERVICESPATIENT NAME: Rocio JacksonMRN: [id number] HISTORY OF PRESENT ILLNESS:Got PTHC on 08/19. [...] CM for home drain management-Dispo: Continue inpatient admissionDAKJ HERNANDEZ MD (Res)General SurgeryPager: [phone]*On weekends or nights (after 1800) please contact the surgery on callpager.*Att: As above. Hopeful for home on full liquids/protein shakestomorrow.Consider dc of ROMINA drain before DC.PtC must be kept to gravity since it could not be advanced to duodenum.Outpt f/u with Dr Jolley as soon as available.Khadar Duffy MDFebruary 2017 6:50 PM Normal [facility] Phosphoruson 08-21-2017 Phosphate 2.9 mg/dL Normal 2.5-4.5 [facility] Comment on above: Performed By: #### P T, PTT, AMYL, CMP, LIPA, PHOS ####[facility] [place], [place] [phone]#### TRANSF ####[facility] [address] [place], [place] [phone] THERAPY NTon 08-21-2017 THERAPY NT HNO ID: [id number] thor: Sujata (Pt) PapcunService: Physical TherapyAuthor Type: Physical TherapistType: Therapy (PT/OT/Speech/Resp)Filed: 08/21/2017 2:10 PMNote Text:Physical Therapy EvaluationSERVICE DATE: 08/21/2017SERVICE TIME: 1255 to 1320ROOM: [place] [address] ( OPERATING ROOM)Recommended Discharge Disposition: Home PTAnticipated [...] drain. Patient's pertinent PMHx includesDM, glaucoma; HTN; GA; s/p GA; 2 stents. Patient's impairments as relatedto Physical [...] improve safety and independence with functionalmobility. Recommend [facility] PT with pt's approval.Tolerance Limited By [...] Reduced mobility-other;Muscle Weakness (generalized)Interventions Provided: Evaluation;Gait Training (32751)$ Evaluation-Low (69092) Billed Units: 1 unitGait Training (49250) Treatment Minutes: 101 unitSkilled Intervention(s): Instruction in [...] G CODE:PT 6 Clicks Score: 19 (08/21/17 2924)Mobility: Walking and Moving Around Current Status (G8978): CK (255)Mobility: Walking and Moving Around Goal Status (G8979): [...] RE: Sujata Ohara PT PATIENT NAME: Rocio TorresschDATE: August 21, 2017 : 2:05 PM PAGER/CONTACT #: [phone] [facility] THERAPY NT HNO ID: [id number] thor: Mandi (Ot) GarnekService: Occupational TherapyAuthor Type: Occupational TherapistType: Therapy (PT/OT/Speech/Resp)Filed: 08/21/2017 11:25 AMNote Text:Occupational Therapy EvaluationSERVICE DATE: 08/21/2017SERVICE TIME: 0845 to 09ROOM: [place] [address] ( OPERATING ROOM)Admit with Emesis X 1 Month, Abdominal Pain, Partial Duodenal Obstructionand Obstructive Jaundice, Abdominal Abscess, S/P CT Guided AbscessDrainage 08/15/17, S/P Recent Cholecystectomy 08/11/17, and ERCP 08/13/17Recommended Discharge Disposition: Home OTAnticipated Discharge Needs: Physical Assist at Home;EquipmentPhysical Assist at Home for: Cleaning;Laundry;Meals;SelfC are;Shopping;TransportationR ecommended Discharge Equipment: Elastic Shoe Laces;Grab Bars-Shower;HandHeld Shower;Long Handled Shoe Horn;Long Handled Sponge;WheeledWalker;Focused Factory Manager ;Sock Aide;Shower ChairOT Recommendations to Nursing: OOB [...] History Relevantto Therapy Includes: DM, Glaucoma, HTN, GA. For Complete Past MedicalHistory Please Refer to [...] level. 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 Pt has a small dog [...] dailyliving (ADL);Muscle Weakness (generalized)Interventions Provided: Evaluation;Therapeutic Activity (49910)$ Evaluation-Low (26533) Billed Units: 1 unitTherapeutic Activity (85734) Treatment Minutes: 101 unitSkilled Intervention(s): Instructed patient [...] prior toadmit, and works FT in a [employer].OBJECTIVE:Responsiven ess: Alert;AwakeFollows Commands: 3-step CommandsVision Deficits: Wears [...] August 21, 2017 : 11:19 AM PAGER: [phone] [facility] CASE MANAGEMon 08-20-2017 CASE MANAGEM HNO ID: [id number] thor: Alexandrea (Rn) Thom, RNService: Care ManagementAuthor Type: Registered NurseType: Care Mgt Progress NoteFiled: 08/20/2017 1:48 PMNote Text:MULTIDISCIPLINARY ROUNDSSERVICE DATE: 08/20/2017 ADMISSION DATE: 08/13/2017SERVICE TIME: 1:46 PM ANTICIPATED D/C DATE: List:ACTIVE PROBLEM LISTDuodenal ObstructionSevere Protein-Calorie Malnutrition (Hcc)Attendees Present at Rounds:Marble Rubber: Chantelleurse Washer Off/Machine Umbrella Tipper Nurse Washer Off: Roderick Nurse: Laura Discussed on Rounds:Discharge NeedsPlan of CareAnticipated Discharge Disposition:[facility] FacilityPer discussion with Dr Duffy pt [...] August 20, 2017 : 1:46 PM CSN: [id number] [facility] CBCon 08-20-2017 Erythrocyte distribution width Auto Ratio (RBC) 15.8 % High 11.5-15.0 [facility] Comment on above: Performed By: #### C BC, CMP, MG1, PHOS ####[facility] [place], [place] [phone] Erythrocytes (RBC) 2.93 10*6/uL Low 4.20-6.00 [facility] Comment on above: Performed By: #### C BC, CMP, MG1, PHOS ####[place] [address] Hematocrit (HCT) 26.0 % Low 39.0-51.0 [facility] Comment on above: Performed By: #### C BC, CMP, MG1, PHOS ####[place] [address] Hemoglobin mass conc (Bld) 8.3 g/dL Low 13.0-17.0 [facility] Comment on above: Performed By: #### C BC, CMP, MG1, PHOS ####[place] [address] MCH 28.3 pG Normal 26.0-34.0 [facility] Comment on above: Performed By: #### C BC, CMP, MG1, PHOS ####[place] [address] MCHC mass conc (RBC) 31.9 g/dL Normal 30.5-36.0 [facility] Comment on above: Performed By: #### C BC, CMP, MG1, PHOS ####[place] [address] MCV 88.7 fL Normal 80.0-100.0 [facility] Comment on above: Performed By: #### C BC, CMP, MG1, PHOS ####[place] [address] Platelet mean volume (PMV) 9.6 fL Normal 9.0-12.7 [facility] Comment on above: Performed By: #### C BC, CMP, MG1, PHOS ####[place] [address] Platelets 331 10*3/uL Normal 150-400 [facility] Comment on above: Performed By: #### C BC, CMP, MG1, PHOS ####[place] [address] WBC (Leukocytes) 5.78 10*3/uL Normal 3.70-11.00 [facility] Comment on above: Performed By: #### C BC, CMP, MG1, PHOS ####[place] [phone] Comp Metabolic Panelon 08-20 Alanine aminotransferase (ALT) 55 U/L High 5-50 [facility] Comment on above: Performed By: #### C BC, CMP, MG1, PHOS ####[place] [phone] Albumin 2.1 g/dL Low 3.5-5.0 [facility] Comment on above: Result Comment: Revi ewed Performed By: #### C BC, CMP, MG1, PHOS ####[place] [phone] Alkaline phosphatase (ALP) 241 U/L High 40-150 [facility] Comment on above: Performed By: #### C BC, CMP, MG1, PHOS ####[place] [phone] Anion gap 9 mmol/L Normal 9-18 [facility] Comment on above: Performed By: #### C BC, CMP, MG1, PHOS ####[place] [phone] Aspartate aminotransferase (AST) 42 U/L High 7-40 [facility] Comment on above: Result Comment: Resu lts may be falsely increased due to interference by hemolysis. Suggest reorder as clinically indicated. Performed By: #### C BC, CMP, MG1, PHOS ####[place] [phone] Bilirubin (total) 0.7 mg/dL Normal 0.0-1.5 [facility] Comment on above: Performed By: #### C BC, CMP, MG1, PHOS ####[place] [phone] Calcium 7.6 mg/dL Low 8.5-10.5 [facility] Comment on above: Performed By: #### C BC, CMP, MG1, PHOS ####[place] [address] Chloride 109 mmol/L Normal 98-110 [facility] Comment on above: Performed By: #### C BC, CMP, MG1, PHOS ####[place] [address] CO2 23 mmol/L Normal 23-32 [facility] Comment on above: Performed By: #### C BC, CMP, MG1, PHOS ####[place] [address] Creatinine 0.68 mg/dL Low 0.70-1.40 [facility] Comment on above: Performed By: #### C BC, CMP, MG1, PHOS ####[place] [address] eGFR (non-black) mL/min/{1.73_m2} Normal >60 [facility] Comment on above: Performed By: #### C BC, CMP, MG1, PHOS ####[place] [address] Glucose mass conc 117 mg/dL High 65-100 [facility] Comment on above: Performed By: #### C BC, CMP, MG1, PHOS ####[place] [address] Potassium molar conc 3.9 mmol/L Normal 3.5-5.0 [facility] Comment on above: Performed By: #### C BC, CMP, MG1, PHOS ####[place] [address] Protein 5.3 g/dL Low 6.0-8.4 [facility] Comment on above: Performed By: #### C BC, CMP, MG1, PHOS ####[place] [address] Sodium 141 mmol/L Normal 135-146 [facility] Comment on above: Performed By: #### C BC, CMP, MG1, PHOS ####[place] [phone] Urea nitrogen 6 mg/dL Low 10-25 [facility] Comment on above: Performed By: #### C BC, CMP, MG1, PHOS ####[place] [phone] Magnesiumon 08-20-2017 Magnesium 2.2 mg/dL Normal 1.7-2.6 [facility] Comment on above: Performed By: #### C BC, CMP, MG1, PHOS ####[place] [phone] NURSING PROGon 08-20-2017 NURSING PROG HNO ID: [id number] thor: Maryanne (Rn) Luis Miguel, RNService: (none)Author Type: Registered NurseType: Nursing Progress NoteFiled: 08/20/2017 9:53 AMNote Text: Nursing Progress NotePatient Name: Rocio TorresBryannaN: [id number] Location: [place] [address]/GE-[id number] ____0945 - attempted to flush right double lumen PICC, both lumens are patentwith positive blood return, restarted ordered IV fluids. Patienttolerating wellThis note was completed by: Maryanne Bolanos RN Normal [facility] PROGRESSon 08-20-2017 PROGRESS HNO ID: [id number] thor: Khadar Guo: General SurgeryAuthor Type: PhysicianType: Progress NotesFiled: 08/20/2017 12:27 PMNote Text:PROGRESS NOTES - SURGICAL SERVICESPATIENT NAME: Rocio TorresBryannaN: [id number] HISTORY OF PRESENT ILLNESS:Got PTHC yesterday. No [...] PTHC to gravity-Dispo: Continue inpatient admissionSIGNATURE: Kayleen Christian, MDDATE: August 20, 2017TIME: 7:48 AMAttending: [...] am.Khadar Duffy MDFebruary 2017 12:27 PM Normal [facility] Phosphoruson 08-20-2017 Phosphate 2.9 mg/dL Normal 2.5-4.5 [facility] Comment on above: Performed By: #### C BC, CMP, MG1, PHOS ####[facility] [place], [place] [phone] ANES Ila 08-19-2017 ANES POST HNO ID: [id number] thor: Craig Pinzonervice: AnesthesiologyAuthor Type: AnesthesiologistType: Anesthesia PostOpFiled: 08/19/2017 4:21 PMNote Text:POST ANESTHESIA EVALUATION NOTESERVICE DATE: 08/19/2017SERVICE TIME: 4:20 PMDOB: 1955Vitals: 426 0208/19/1810Temp: 37 ?C (98.6 ?F) 36.9 ?C (98.5 [...] 19, 2017 : 4:20 PM PAGER/CONTACT #: [facility] ANES PREOPon 08-19-2017 ANES PREOP HNO ID: [id number] thor: Brian Mendezervice: AnesthesiologyAuthor Type: AnesthesiologistType: Anesthesia PreOpFiled: 08/19/2017 6:27 PMNote Text:REGIONAL ANESTHESIOLOGY DAY OF SURGERY NOTEPATIENT NAME: Rocio JacksonMRN: [id number]: 1955Procedure(s) (LRB):ANESTHESIA FOR NON-INVASIVE IMAGING OR RADIATION THERAPY (N/A)Surgeon(s):Radiology Grand ChainVanessa TritleEstimated body mass index is 29.19 kg/(m2) [...] Date- ANGIOPLASTY HX 05/15/2011 2 stents s/p GA;[facility]- CHOLECYSTECTOMY 08/11/2017 [facility]- PICC LINE INSERT/CONSULT 08/16/2017No family history on file.Social History:Social HistorySubstance Use Topics- Smoking status: Former Smoker Types: Cigarettes Quit date: 2010- Smokeless tobacco: Never Used- Alcohol use 1.5 oz/week 1 Cans of Beer (12oz) per week Comment: occasional beerNo current facility-administered medications on file prior to encounter.No current outpatient prescriptions on file prior to encounter.Inpatient medications reviewed in [facility].I have interviewed and examined the patient. I have reviewed the medicalrecord and/or the pre-anesthesia evaluation, pertinent labs, and testresults.Significant changes in the patient's condition since the History andPhysical, not otherwise documented in primary service progress notes: NoThis contains updated information obtained within 48 hours ofSurgery/Procedure.SIGNATUR E: Brian Orona MD PATIENT NAME: Rocio JacksonDATE: August 19, 2017 : 1220 PAGER/CONTACT #: [phone] (pager) [facility] BRIEF OP NOTon 08-19-2017 BRIEF OP NOT HNO ID: [id number] thor: Vanessa GarciaService: RadiologyAuthor Type: PhysicianType: Brief Op NoteFiled: 08/19/2017 2:57 PMNote Text:BRIEF OPERATIVE / PROCEDURE NOTESurgery/Procedure Date: 08/19/17Incision/Procedure Start Time:Incision Close/Procedure End Time:Surgeon(s)/Proceduralis t(s) and Machine Umbrella Tipper(s):Dusty Garcia - PrimaryProcedure(s): R PTHC and Int/Ext biliary drainAnesthesia: GeneralFindings: Mildly dilated IH ducts. NO filling defects. Severe D2-3strictureEstimated Blood Loss: MinimalSpecimens: NoneComplications: NonePre-Op/Pre-Procedure Diagnosis: Duodenal massPost-Op/Post-Procedure Diagnosis: SameSIGNATURE: Vanessa Garcia MD PATIENT NAME: Rocio TorresschDATE: August 19, 2017 : 2:56 PM PAGER/CONTACT #: [facility] CBCon 08-19-2017 Erythrocyte distribution width Auto Ratio (RBC) 15.4 % High 11.5-15.0 [facility] Comment on above: Performed By: #### C BC, CMP, MG1, PHOS ####[place] [address] Erythrocytes (RBC) 3.17 10*6/uL Low 4.20-6.00 [facility] Comment on above: Performed By: #### C BC, CMP, MG1, PHOS ####[place] [address] Hematocrit (HCT) 27.7 % Low 39.0-51.0 [facility] Comment on above: Performed By: #### C BC, CMP, MG1, PHOS ####[place] [address] Hemoglobin mass conc (Bld) 8.8 g/dL Low 13.0-17.0 [facility] Comment on above: Performed By: #### C BC, CMP, MG1, PHOS ####[place] [address] MCH 27.8 pG Normal 26.0-34.0 [facility] Comment on above: Performed By: #### C BC, CMP, MG1, PHOS ####[place] [address] MCHC mass conc (RBC) 31.8 g/dL Normal 30.5-36.0 [facility] Comment on above: Performed By: #### C BC, CMP, MG1, PHOS ####[place] [address] MCV 87.4 fL Normal 80.0-100.0 [facility] Comment on above: Performed By: #### C BC, CMP, MG1, PHOS ####[place] [address] Platelet mean volume (PMV) 9.7 fL Normal 9.0-12.7 [facility] Comment on above: Performed By: #### C BC, CMP, MG1, PHOS ####[address] Platelets 344 10*3/uL Normal 150-400 [facility] Comment on above: Performed By: #### C BC, CMP, MG1, PHOS ####[place] [phone] WBC (Leukocytes) 6.57 10*3/uL Normal 3.70-11.00 [facility] Comment on above: Performed By: #### C BC, CMP, MG1, PHOS ####[place] [phone] Comp Metabolic Panelon 08-19 Alanine aminotransferase (ALT) 53 U/L High 5-50 [facility] Comment on above: Performed By: #### C BC, CMP, MG1, PHOS ####[place] [phone] Albumin 2.5 g/dL Low 3.5-5.0 [facility] Comment on above: Performed By: #### C BC, CMP, MG1, PHOS ####[place] [phone] Alkaline phosphatase (ALP) 249 U/L High 40-150 [facility] Comment on above: Performed By: #### C BC, CMP, MG1, PHOS ####[place] [phone] Anion gap 11 mmol/L Normal 9-18 [facility] Comment on above: Performed By: #### C BC, CMP, MG1, PHOS ####[place] [phone] Aspartate aminotransferase (AST) 27 U/L Normal 7-40 [facility] Comment on above: Performed By: #### C BC, CMP, MG1, PHOS ####[place] [phone] Bilirubin (total) 0.9 mg/dL Normal 0.0-1.5 [facility] Comment on above: Performed By: #### C BC, CMP, MG1, PHOS ####[place] [phone] Calcium 7.6 mg/dL Low 8.5-10.5 [facility] Comment on above: Performed By: #### C BC, CMP, MG1, PHOS ####[place] [phone] Chloride 108 mmol/L Normal 98-110 [facility] Comment on above: Performed By: #### C BC, CMP, MG1, PHOS ####[place] [phone] CO2 23 mmol/L Normal 23-32 [facility] Comment on above: Performed By: #### C BC, CMP, MG1, PHOS ####[place] [phone] Creatinine 0.58 mg/dL Low 0.70-1.40 [facility] Comment on above: Performed By: #### C BC, CMP, MG1, PHOS ####[place] [phone] eGFR (non-black) mL/min/{1.73_m2} Normal >60 [facility] Comment on above: Performed By: #### C BC, CMP, MG1, PHOS ####[place] [phone] Glucose mass conc 144 mg/dL High 65-100 [facility] Comment on above: Performed By: #### C BC, CMP, MG1, PHOS ####[place] [phone] Potassium molar conc 3.4 mmol/L Low 3.5-5.0 [facility] Comment on above: Performed By: #### C BC, CMP, MG1, PHOS ####[place] [phone] Protein 5.6 g/dL Low 6.0-8.4 [facility] Comment on above: Performed By: #### C BC, CMP, MG1, PHOS ####[facility] [place], [place] [phone] Sodium 142 mmol/L Normal 135-146 [facility] Comment on above: Performed By: #### C BC, CMP, MG1, PHOS ####[facility] [place], [place] [phone] Urea nitrogen 7 mg/dL Low 10-25 [facility] Comment on above: Performed By: #### C BC, CMP, MG1, PHOS ####[facility] [place], [place] [phone] CATH BILI DRAIN INT -EXTon [...] Air Kerma: 1529.0 mGyDose Area Product (DAP): 944433.0 mGy*td9Ptmxgg Time: 46:36 min:secRadiation dose exceed 5 Gy: [...] an Alvarez Set dilator. Using a 4 Moldovan Kumpe catheter in conjunction with a glide wire, access was obtained into the small bowel. Despite multiple attempts with multiple wires and catheters, the duodenal stricture could not be passed via the [facility] access. Over an Amplatz super stiff [...] cm internal external biliary drainage catheter, with [place] loop in small bowel and proximal sideholes [...] Specimens: 0: Surgical pathologyATTENDING RADIOLOGIST: Dusty Garcia M.D.PRINTER SLOTTER OPERATOR: NoneThe procedure was performed by the:attending radiologist, without an treasury assistant.The attending radiologist performed the following procedural activities: Entire procedure.IMPRESSION:SUCCESS FUL PTHC AND INTERNAL/EXTERNAL BILIARY DRAIN PLACEMENT FROM RIGHT-SIDED APPROACH.CHOLANGIOGRAM DEMONSTRATING MODERATE INTRA AND EXTRA HEPATIC BILIARY DILATION.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.THE PATIENT MAY RETURN IN 8 WEEKS FOR ROUTINE CATHETER CHANGE IF LONG-TERM PERCUTANEOUS ACCESS IS REQUIRED.Ditch Cleaner: NII Transcribe Date/Time: Aug 19 2017 3:26PDictated by : VANESSA GARCIA MDThis examination was interpreted and the report reviewed and electronically signed by: VANESSA GARCIA MD on Aug 21 2017 3:05PM EST Normal [facility] Magnesiumon 08-19-2017 Magnesium 2.2 mg/dL Normal 1.7-2.6 [facility] Comment on above: Performed By: #### C BC, CMP, MG1, PHOS ####[facility] [place], [place] [phone] NURSING PROGon 08-19-2017 NURSING PROG HNO ID: [id number] thor: Shavonne (Rn) [place] Mc[place], RNService: NursingAuthor Type: Registered NurseType: Nursing Progress NoteFiled: 08/19/2017 5:27 PMNote Text: Nursing Progress NotePatient Name: Rocio TorresBryannaN: [id number] Location: [facility]3C36/QN-GL5T-89 ____Pt returned from PACU in stable condition. Right lateral lower quadrantdrain patent, draining brown, bilious fluid. A+Ox3, speech clear.Medicated for c/o generalized pain. Glucose 112. NPO order continued,green surgical team paged for updated orders.This note was completed by: Shavonne Mays RN [facility] NURSING PROG O ID: [id number] Author: Paty (Rn) FRANSICO Cardoza Service: Nursing Author Type: Registered Nurse Type: Nursing Progress Note Filed: 08/19/2017 3:26 PM Note Text: Biliary tube that is the latest tube draining baldwin and rust colored.} [facility] NURSING PROG HNO ID: [id number] thor: Latanya (Rn) MOUSTAPHA Larsenervice: RadiologyAuthor Type: Registered NurseType: Nursing Progress NoteFiled: 08/19/2017 11:47 AMNote Text:PATIENT EDUCATION TOPIC: PROCEDURE / SURGERY: Procedure/Surgery: PTHCPATIENT NAME: Rocio BrianDary: [id number] LOCATION: [place] [address]READINES S TO LEARNCOGNITIVE ABILITY: Alert and orientedMOTIVATION TO LEARN: EagerInterestedFAMILY SUPPORT: Unable to assess - Family not presentINSTRUCTION PROVIDED TO: PatientPATIENT LEARNS BEST BY: Individual InstructionWritten Instruction - Hand-outsVerbal InstructionFACTORS AFFECTING LEARNING: NonePHYSICAL LIMITATIONS AFFECTING LEARNING: NoneLEARNING RESPONSEDIAGNOSIS: ADULT: Duodenal massPATIENT/FAMILY RESPONSE: Verbalizes understanding of: [id number]-H orrect actions to take to reduce post procedurecomplicationsPRE-MN OCEDURE INSTRUCTIONS-Correct action to take to follow pre-procedureinstructionsMET HOD OF INSTRUCTION: Individual instructionWritten instruction - handoutsVerbal instructionFOLLOW-UP PLAN: Follow-up with Primary CareINSTRUCTIONAL AIDS USED: NASUPPLEMENTAL MATERIAL PROVIDED TO PATIENT: NoneREFERRAL (RECOMMENDATION): NoneElectronically Signed By: Latanya Larsen RN [facility] NURSING PROG HNO ID: [id number] thor: Jennifer KenRn) MOUSTAPHA Websterervice: (none)Author Type: Registered NurseType: Nursing Progress NoteFiled: 08/19/2017 3:24 AMNote Text: Nursing Progress NotePatient Name: Rocio JacksonN: [id number] Location: [place] [address]/CW-IH2D-06 ____ Pt with mild abd pain of 3 or less tonight. Tylenol controlling. Ptaware if needed may have pain pills. Accordian drain flushed at 2100 perorder for positive return of sterile NS and brown liquid.This note was completed by: Jennifer Webster RN Normal [facility] NUTRITIONon 08-19-2017 NUTRITION HNO ID: [id number] thor: Alise Segura) BarsaService: Nutrition TherapyAuthor Type: [...] 87 kgResting Metabolic Rate: 1661Estimated kilocalorie needs: 8959-4953 kilocalories determined by 25-28kcal/kgEstimated protein needs:113 - [...] kg (192 lb) SpO2 98% BMI 29.19 kg/q2Tnqkwv Labs GLUC 144*BUN 7*CREAT 0.58*NA 142K 3.4*CHLOR [...] 5,000 Units SUBCUTANEOUS q 8 Hphenol 1 Evans (CHLORASEPTIC) 1 Evans MUCOUS MEMBRANE (TOPICAL MOUTH ANDTHROAT) q 2 [...] Alise Lopez RD, LD PATIENT NAME: Rociomarisa JacksonDATE: August 19, 2017 : 2:05 PM PAGER: For further assistance and weekends please page theGroup Pager [phone] [facility] PROGRESSon 08-19-2017 PROGRESS HNO ID: [id number] thor: Khadar Guo: General SurgeryAuthor Type: PhysicianType: [...] feeds.Khadar Duffy MDFebruary 2017 9:56 PM Normal [facility] Phosphoruson 08-19-2017 Phosphate 1.9 mg/dL Low 2.5-4.5 [facility] Comment on above: Performed By: #### C BC, CMP, MG1, PHOS ####[facility] [place], [place] [id number] CASE MANAGEMon 08-18-2017 CASE MANAGEM HNO ID: [id number] thor: Alexandrea (Rn) MOUSTAPHA Tomaservice: Care ManagementAuthor Type: Registered NurseType: Care Mgt Progress NoteFiled: 08/18/2017 2:30 PMNote Text:MULTIDISCIPLINARY ROUNDSSERVICE DATE: 08/18/2017 ADMISSION DATE: 08/13/2017SERVICE TIME: 2:27 PM ANTICIPATED D/C DATE: 1-3 daysProblem List:ACTIVE PROBLEM LISTDuodenal ObstructionSevere Protein-Calorie Malnutrition (Hcc)Attendees Present at Rounds:Marble Rubber: Roderick Nurse: Laura Discussed on Rounds:Discharge NeedsPlan [...] BY: Alexandrea Tomas RN PATIENT NAME: Rocio VenturaDATE: August 18, 2017 : 2:27 PM CSN: [id number] Normal [facility] CBCon 08-18-2017 Erythrocyte distribution width Auto Ratio (RBC) 15.7 % High 11.5-15.0 [facility] Comment on above: Performed By: #### P T, PTT, AMYL, CMP, LIPA, PHOS ####[place] [address]206[address]#### TRANSF ####[place] [address]184[address] Erythrocytes (RBC) 3.08 10*6/uL Low 4.20-6.00 [facility] Comment on above: Performed By: #### P T, PTT, AMYL, CMP, LIPA, PHOS ####[phone]#### TRANSF ####[place] [phone] Hematocrit (HCT) 26.6 % Low 39.0-51.0 [facility] Comment on above: Performed By: #### P T, PTT, AMYL, CMP, LIPA, PHOS ####[place] [address]#### TRANSF ####[place] [address]184[address] Hemoglobin mass conc (Bld) 8.6 g/dL Low 13.0-17.0 [facility] Comment on above: Performed By: #### P T, PTT, AMYL, CMP, LIPA, PHOS ####[place] [address]#### TRANSF ####[place] [address]184[address] MCH 27.9 pG Normal 26.0-34.0 [facility] Comment on above: Performed By: #### P T, PTT, AMYL, CMP, LIPA, PHOS ####[place] [address]#### TRANSF ####[place] [address]184[address] MCHC mass conc (RBC) 32.3 g/dL Normal 30.5-36.0 [facility] Comment on above: Performed By: #### P T, PTT, AMYL, CMP, LIPA, PHOS ####[place] [address]#### TRANSF ####[place] [address]184[address] MCV 86.4 fL Normal 80.0-100.0 [facility] Comment on above: Performed By: #### P T, PTT, AMYL, CMP, LIPA, PHOS ####[place] [address]#### TRANSF ####[place] [phone] Platelet mean volume (PMV) 10.2 fL Normal 9.0-12.7 [facility] Comment on above: Performed By: #### P T, PTT, AMYL, CMP, LIPA, PHOS ####[place] [address]206[address]#### TRANSF ####[address] [phone] Platelets 310 10*3/uL Normal 150-400 [facility] Comment on above: Performed By: #### P T, PTT, AMYL, CMP, LIPA, PHOS ####[place] [address]206[address]#### TRANSF ####[place] [phone] WBC (Leukocytes) 4.87 10*3/uL Normal 3.70-11.00 [facility] Comment on above: Performed By: #### P T, PTT, AMYL, CMP, LIPA, PHOS ####[place] [address]206[address]#### TRANSF ####[place] [phone] CONSULT PROGon 08-18-2017 CONSULT PROG HNO ID: [id number] thor: Linda ([facility]) MacamarcelloaService: GastroenterologyAuthor Type: Nurse PractitionerType: Consult Progress NoteFiled: 08/18/2017 1:23 PMNote Text:CONSULT PROGRESS NOTESERVICE DATE: 08/18/2017SERVICE TIME: 1:20 PMCONSULTING SERVICE: GISubjectiveINTERVAL HPI: No acute events overnight. 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.Current hospital medications:insulin lispro injection (rapid acting) (HumaLOG) SUBCUTANEOUS w MEALSAND HSphenol 1 Evans (CHLORASEPTIC) 1 Evans MUCOUS MEMBRANE (TOPICAL MOUTH ANDTHROAT) q 2 [...] tube placement for feeding-continue to followJudith Weber [facility] GastroenterologyThank you for allowing us to participate in the care of this patient.Please call with questions or concerns.SIGNATURE: Linda Avalos CNP PATIENT NAME: Rocio Sibley: August 18, 2017 : 1:20 PM PAGER: [phone] Normal [facility] Comp Metabolic Panelon 08-18 Alanine aminotransferase (ALT) 66 U/L High 5-50 [facility] Comment on above: Performed By: #### P T, PTT, AMYL, CMP, LIPA, PHOS ####[place] [address]#### TRANSF ####[address] [place] [phone] Albumin 2.3 g/dL Low 3.5-5.0 [facility] Comment on above: Performed By: #### P T, PTT, AMYL, CMP, LIPA, PHOS ####[place] [address]#### TRANSF ####[place] [phone] Alkaline phosphatase (ALP) 261 U/L High 40-150 [facility] Comment on above: Performed By: #### P T, PTT, AMYL, CMP, LIPA, PHOS ####[place] [address]#### TRANSF ####[address] [place] [address] Anion gap 8 mmol/L Low 9-18 [facility] Comment on above: Performed By: #### P T, PTT, AMYL, CMP, LIPA, PHOS ####[place] [address]#### TRANSF ####[place] [phone] Aspartate aminotransferase (AST) 32 U/L Normal 7-40 [facility] Comment on above: Performed By: #### P T, PTT, AMYL, CMP, LIPA, PHOS ####[place] [address]#### TRANSF ####[place] [phone] Bilirubin (total) 0.9 mg/dL Normal 0.0-1.5 [facility] Comment on above: Performed By: #### P T, PTT, AMYL, CMP, LIPA, PHOS ####[place] [address]#### TRANSF ####[place] [phone] Calcium 7.2 mg/dL Low 8.5-10.5 [facility] Comment on above: Result Comment: Revi ewed Performed By: #### P T, PTT, AMYL, CMP, LIPA, PHOS ####[place] [address]#### TRANSF ####[place] [phone] Chloride 112 mmol/L High 98-110 [facility] Comment on above: Performed By: #### P T, PTT, AMYL, CMP, LIPA, PHOS ####[place] [address]#### TRANSF ####[address] [place] [phone] CO2 28 mmol/L Normal 23-32 [facility] Comment on above: Performed By: #### P T, PTT, AMYL, CMP, LIPA, PHOS ####[place] [address]#### TRANSF ####[address] [place] [address] Creatinine 0.71 mg/dL Normal 0.70-1.40 [facility] Comment on above: Performed By: #### P T, PTT, AMYL, CMP, LIPA, PHOS ####[address]#### TRANSF ####[place] [phone] eGFR (non-black) mL/min/{1.73_m2} Normal >60 [facility] Comment on above: Performed By: #### P T, PTT, AMYL, CMP, LIPA, PHOS ####[place] [address]#### TRANSF ####[place] [phone] Glucose mass conc 160 mg/dL High 65-100 [facility] Comment on above: Performed By: #### P T, PTT, AMYL, CMP, LIPA, PHOS ####[place] [address]#### TRANSF ####[place] [phone] Potassium molar conc 3.9 mmol/L Normal 3.5-5.0 [facility] Comment on above: Result Comment: Revi ewed Performed By: #### P T, PTT, AMYL, CMP, LIPA, PHOS ####[place] [address]#### TRANSF ####[place] [address] Protein 5.5 g/dL Low 6.0-8.4 [facility] Comment on above: Performed By: #### P T, PTT, AMYL, CMP, LIPA, PHOS ####[place] [address]#### TRANSF ####[place] [phone] Sodium 148 mmol/L High 135-146 [facility] Comment on above: Performed By: #### P T, PTT, AMYL, CMP, LIPA, PHOS ####[place] [address]#### TRANSF ####[place] [address] Urea nitrogen 13 mg/dL Normal 10-25 [facility] Comment on above: Performed By: #### P T, PTT, AMYL, CMP, LIPA, PHOS ####[place] [address]#### TRANSF ####[phone] Magnesiumon 08-18-2017 Magnesium 2.1 mg/dL Normal 1.7-2.6 [facility] Comment on above: Performed By: #### P T, PTT, AMYL, CMP, LIPA, PHOS ####[address]71[address]#### TRANSF ####[place] [phone] NUTRITIONon 08-18-2017 NUTRITION HNO ID: [id number] thor: Alise Segura) BarsaService: Nutrition TherapyAuthor Type: Registered DietitianType: NutritionFiled: 08/18/2017 1:39 PMNote Text:NUTRITION THERAPY PROGRESS NOTESERVICE DATE: 08/18/2017SERVICE TIME: 1:24 PMRECOMMENDED DIAGNOSIS: SEVERE PROTEIN-CALORIE MALNUTRITION per RegisteredDietitian on 08/14NUTRITION CARE PLANIntervention:Diet NPOAdvance to clearsMonitor and Evaluation:Goal: Meet >75% of estimated needsMonitor fluid/electrolyte balanceMonitor labs, I/Os, vital signs, weightDischarge Nutrition Recommendations:To be [id number] year old male with a history notable [...] acting) (HumaLOG) SUBCUTANEOUS w MEALSAND HSphenol 1 Evans (CHLORASEPTIC) 1 Evans MUCOUS MEMBRANE (TOPICAL MOUTH ANDTHROAT) q 2 [...] 08/15/17 0659 08/15/17 0700 - 08/16/17 0659 [id number] - 08/17/17 0659 08/17/17 07 - 08/18/17 0659 08/18/17 07 -08/19/17 0659 Intake (ml) 2119 3079 2570.4 [...] assistance and weekends please page theGroup Pager -[phone] [facility] PROGRESSon 08-18-2017 PROGRESS HNO ID: [id number] thor: Khadar DuffyService: General SurgeryAuthor Type: PhysicianType: Progress NotesFiled: 08/18/2017 6:11 PMNote Text:PROGRESS NOTES - SURGICAL SERVICESPATIENT NAME: Rocio JacksonMRN: [id number] HISTORY OF PRESENT ILLNESS:No acute events overnight. [...] distended.CBC, Coags, BMP, Mg, PhosRecent Labs 08/17/18073 08/16/1805105WBC [...] at 08/18/17 0546 Gross per 24 hourIntake 1952 mlOutput 2540 mlNet -587 mlSURGERY/PROCEDURE:Procedur e(s) and [...] biopsy results-VTE Prophylaxis: SCDs-Routine surgical care: IS, OOBDAVIT KOCHARYAN, MD (Res)General SurgeryPager: [phone]*On weekends or nights (after 1800) please contact [...] understand.Khadar Duffy MDFebruary 2017 6:11 PM Normal [facility] Phosphoruson 08-18-2017 Phosphate 2.2 mg/dL Low 2.5-4.5 [facility] Comment on above: Performed By: #### P T, PTT, AMYL, CMP, LIPA, PHOS ####[facility] [place], [place] [phone]#### TRANSF ####[facility] [address] [place], [place] [phone] ANES Ila 08-17-2017 ANES POST HNO ID: [id number] thor: Reba ValleSer: AnesthesiologyAuthor Type: AnesthesiologistType: Anesthesia PostOpFiled: 08/17/2017 5:41 [...] 17, 2017 : 5:41 PM PAGER/CONTACT #: [facility] ANES PREOPon 08-17-2017 ANES PREOP HNO ID: [id number] thor: eRba ValleService: AnesthesiologyAuthor Type: AnesthesiologistType: Anesthesia PreOpFiled: 08/17/2017 3:21 PMNote Text:REGIONAL ANESTHESIOLOGY DAY OF SURGERY NOTEPATIENT NAME: Rocio JacksonMRN: [id number]: 1955Procedure(s) (LRB):ERCP (N/A)Surgeon(s):Srinath NavaEstimated body mass index [...] 0.68 08/17/2017EKG:atrial fibrillation, rate 100sVitals: 810 900 459BP: 128/77 141/90 128/84Pulse: 100 109 [...] Date- ANGIOPLASTY HX 05/15/2011 2 stents s/p GA;[facility]- CHOLECYSTECTOMY 08/11/2017 [facility]- PICC LINE INSERT/CONSULT 08/16/2017No family history on file.Social History:Social HistorySubstance Use Topics- Smoking status: Former Smoker Types: Cigarettes Quit date: 2010- Smokeless tobacco: Never Used- Alcohol use 1.5 oz/week 1 Cans of Beer (12oz) per week Comment: occasional beerNo current facility-administered medications on file prior to encounter.No current outpatient prescriptions on file prior to encounter.Inpatient medications reviewed in AorTx.I have interviewed and examined the patient. I have reviewed the medicalrecord and/or the pre-anesthesia evaluation, pertinent labs, and testresults.Significant changes in the patient's condition since the History andPhysical, not otherwise documented in primary service progress notes: NoThis contains updated information obtained within 48 hours ofSurgery/Procedure.SIGNATSHAHLA E: Reba Valle MD PATIENT NAME: Rocio TorresschDATE: August 17, 2017 : 3:20 PM PAGER/CONTACT #: Normal [facility] BRIEF OP NOTon 08-17-2017 BRIEF OP NOT HNO ID: [id number] thor: Srinath Padillae: GastroenterologyAuthor Type: PhysicianType: Brief Op NoteFiled: 08/17/2017 5:07 PMNote Text:Please see procedure report under procedure tabIMP:Duodenal mass, malignant with D2 stenosis involving area of papillaS/P dilation to 15mm balloonRecs:Clear liquid diet, may consider EGD assisted duodenal tube placement forfeedingUnable to cannulate due to sharp angulation, can have PTC with exchange tointernal endoscopically Normal [facility] CASE MGT INIT ASSon 2017 CASE MGT INIT [facility] HNO ID: [id number] thor: Alexandrea (Rn) MOUSTAPHA Tomaservice: Care ManagementAuthor Type: Registered NurseType: Care Mgt Initial AssessmentFiled: 08/17/2017 2:14 PMNote Text:CARE MANAGEMENT: ASSESSMENT AND DISCHARGE PLANSERVICE DATE: 08/17/2017SERVICE TIME: 2:11 PMPRIMARY CARE PHYSICIAN:No primary care provider on file.Phone: NoneADMISSION STATUS: InpatientPOTENTIAL DISCHARGE PLANSTo Be DeterminedPatient/Representa tive Stated Goals: I am having a test this afternoon.Needs Prior to Discharge: To Be DeterminedHealth Insurance: [facility] Arrangement: HomeLives With: 2 adult childrenFinancial Resources: N/APrimary Contact:Extended Emergency Contact InformationPrimary Emergency Contact: Owen Muller: [place], [place] [address]Olnx Bnahvteu: SiblingSupportive: YesOther Important Patient Contacts: NoneCAREGIVER ASSESSMENT:Caregiver [...] days? NoHas the Patient Been in a Half-Way Facility in the Past 30 days? NoFREEDOM [...] 17, 2017 : 2:07 PM PAGER/CONTACT #: [phone] Normal [facility] CBCon 08-17-2017 Erythrocyte distribution width Auto Ratio (RBC) 15.5 % High 11.5-15.0 [facility] Comment on above: Performed By: #### P T, PTT, AMYL, CMP, LIPA, PHOS ####[place] [address]#### TRANSF ####[place] [address] Erythrocytes (RBC) 3.18 10*6/uL Low 4.20-6.00 [facility] Comment on above: Performed By: #### P T, PTT, AMYL, CMP, LIPA, PHOS ####[place] [address]#### TRANSF ####[place] [address] Hematocrit (HCT) 27.4 % Low 39.0-51.0 [facility] Comment on above: Performed By: #### P T, PTT, AMYL, CMP, LIPA, PHOS ####[place] [address]#### TRANSF ####[place] [address] Hemoglobin mass conc (Bld) 9.1 g/dL Low 13.0-17.0 [facility] Comment on above: Performed By: #### P T, PTT, AMYL, CMP, LIPA, PHOS ####[place] [address]#### TRANSF ####[place] [address] MCH 28.6 pG Normal 26.0-34.0 [facility] Comment on above: Performed By: #### P T, PTT, AMYL, CMP, LIPA, PHOS ####[place] [address]#### TRANSF ####[place] [phone] MCHC mass conc (RBC) 33.2 g/dL Normal 30.5-36.0 [facility] Comment on above: Performed By: #### P T, PTT, AMYL, CMP, LIPA, PHOS ####[place] [address]#### TRANSF ####[place] [address] MCV 86.2 fL Normal 80.0-100.0 [facility] Comment on above: Performed By: #### P T, PTT, AMYL, CMP, LIPA, PHOS ####[place] [address]#### TRANSF ####[place] [address] Platelet mean volume (PMV) 10.0 fL Normal 9.0-12.7 [facility] Comment on above: Performed By: #### P T, PTT, AMYL, CMP, LIPA, PHOS ####[place] [address]#### TRANSF ####[place] [address] Platelets 319 10*3/uL Normal 150-400 [facility] Comment on above: Performed By: #### P T, PTT, AMYL, CMP, LIPA, PHOS ####[place] [address]#### TRANSF ####[place] [phone] WBC (Leukocytes) 7.02 10*3/uL Normal 3.70-11.00 [facility] Comment on above: Performed By: #### P T, PTT, AMYL, CMP, LIPA, PHOS ####[facility] [place], [place] [phone]#### TRANSF ####[facility] [address] [place], [place] [phone] CONSULT PROGon 08-17-2017 CONSULT PROG HNO ID: [id number] thor: Jessee Lottervice: Cardiovascular DiseaseAuthor Type: PhysicianType: Consult Progress NoteFiled: 08/18/2017 10:29 PMNote Text:PROGRESS NOTE CARDIOLOGY SERVICESERVICE DATE: August 17, 2017SERVICE TIME: 12:48 PMASSESSMENT/PLANActive Problems:Atrial fibrillation. Persistent AF, ventricular rates +/- 100Heparin infusion is off. Inr was elevated, received vitamin K prior toprocedure. Today 1.0.s/p ERCP yesterdayPlan:Continue metoprolol.Spoke to surgical [employer] SALES REPRESENTATIVE Boubacar Espinoza. ->kimberley is for PTHC tomorrow.Will [...] edema.PULSES: Peripheral pulses present.MEDICATIONS:Current Facility-Administered Medications:phenol 1 Evans (CHLORASEPTIC) 1 Evans MUCOUS MEMBRANE (TOPICAL MOUTH ANDTHROAT) q 2 [...] Labs:CBC, Coags, BMP, Mg, PhosRecent Labs 08/17/18073 7 105WBC 4.87 -- 7.02 11.42* 12.79*HB 8.6* [...] 2017 : 12:48 PM PAGER/CONTACT #: Normal [facility] Comp Metabolic Panelon 08-17 Alanine aminotransferase (ALT) 90 U/L High 5-50 [facility] Comment on above: Performed By: #### P T, PTT, AMYL, CMP, LIPA, PHOS ####[place] [address]#### TRANSF ####[place] [phone] Albumin 2.5 g/dL Low 3.5-5.0 [facility] Comment on above: Performed By: #### P T, PTT, AMYL, CMP, LIPA, PHOS ####[place] [phone]#### TRANSF ####[place] [phone] Alkaline phosphatase (ALP) 304 U/L High 40-150 [facility] Comment on above: Performed By: #### P T, PTT, AMYL, CMP, LIPA, PHOS ####[place] [phone]#### TRANSF ####[place] [address] Anion gap 12 mmol/L Normal 9-18 [facility] Comment on above: Performed By: #### P T, PTT, AMYL, CMP, LIPA, PHOS ####[place] [address]#### TRANSF ####[place] [address] Aspartate aminotransferase (AST) 36 U/L Normal 7-40 [facility] Comment on above: Performed By: #### P T, PTT, AMYL, CMP, LIPA, PHOS ####[place] [address]#### TRANSF ####[place] [address] Bilirubin (total) 1.1 mg/dL Normal 0.0-1.5 [facility] Comment on above: Performed By: #### P T, PTT, AMYL, CMP, LIPA, PHOS ####[place] [address]#### TRANSF ####[place] [address] Calcium 8.2 mg/dL Low 8.5-10.5 [facility] Comment on above: Performed By: #### P T, PTT, AMYL, CMP, LIPA, PHOS ####[place] [address]#### TRANSF ####[place] [address] Chloride 110 mmol/L Normal 98-110 [facility] Comment on above: Result Comment: Revi ewed Performed By: #### P T, PTT, AMYL, CMP, LIPA, PHOS ####[place] [address]#### TRANSF ####[place] [address] CO2 26 mmol/L Normal 23-32 [facility] Comment on above: Performed By: #### P T, PTT, AMYL, CMP, LIPA, PHOS ####[place] [address]#### TRANSF ####[place] [address]184[address] Creatinine 0.68 mg/dL Low 0.70-1.40 [facility] Comment on above: Performed By: #### P T, PTT, AMYL, CMP, LIPA, PHOS ####[place] [address]#### TRANSF ####[place] [address]184[address] eGFR (non-black) mL/min/{1.73_m2} Normal >60 [facility] Comment on above: Performed By: #### P T, PTT, AMYL, CMP, LIPA, PHOS ####[address]#### TRANSF ####[place] [address] Glucose mass conc 158 mg/dL High 65-100 [facility] Comment on above: Performed By: #### P T, PTT, AMYL, CMP, LIPA, PHOS ####[address]#### TRANSF ####[place] [address] Potassium molar conc 3.2 mmol/L Low 3.5-5.0 [facility] Comment on above: Performed By: #### P T, PTT, AMYL, CMP, LIPA, PHOS ####[place] [address]#### TRANSF ####[place] [address]184[address] Protein 6.1 g/dL Normal 6.0-8.4 [facility] Comment on above: Performed By: #### P T, PTT, AMYL, CMP, LIPA, PHOS ####[place] [address]#### TRANSF ####[place] [address]184[address] Sodium 148 mmol/L High 135-146 [facility] Comment on above: Result Comment: Revi ewed Performed By: #### P T, PTT, AMYL, CMP, LIPA, PHOS ####[place] [address]#### TRANSF ####[place] [address]184[address] Urea nitrogen 14 mg/dL Normal 10-25 [facility] Comment on above: Performed By: #### P T, PTT, AMYL, CMP, LIPA, PHOS ####[place] [address]#### TRANSF ####[phone] Magnesiumon 08-17-2017 Magnesium 2.4 mg/dL Normal 1.7-2.6 [facility] Comment on above: Performed By: #### P T, PTT, AMYL, CMP, LIPA, PHOS ####[place] [address]#### TRANSF ####[place] [phone] NUTRITIONon 08-17-2017 NUTRITION HNO ID: [id number] thor: Alise (Rd) BarsaService: Nutrition TherapyAuthor Type: Registered DietitianType: NutritionFiled: [...] 87 kgResting Metabolic Rate: 1661Estimated kilocalorie needs: 5339-2281 kilocalories determined by 25-28kcal/kgEstimated protein needs:113 - 130 grams determined by 1.3-1.5 g/kg DosingweightEstimated fluid needs: 2200 - 2400 milliliters based on 1 mL per kcalAdmission Weight: 87.4 kg (192 lb 9.6 oz)Current Weight: 87.4 kg (192 lb 9.6 oz)Body mass index is 29.28 kg/(m2). overweightALLERGIESNo Known AllergiesCurrent Facility-Administered Medications:phenol 1 Evans (CHLORASEPTIC) 1 Evans MUCOUS MEMBRANE (TOPICAL MOUTH ANDTHROAT) q 2 [...] assistance and weekends please page theGroup Pager -[phone] [facility] PROGRESSon 08-17-2017 PROGRESS HNO ID: [id number] thor: Khadar Guo: General SurgeryAuthor Type: PhysicianType: Progress NotesFiled: 08/17/2017 2:42 PMNote Text:PROGRESS NOTES - SURGICAL SERVICESPATIENT NAME: Rocio HayesN: [id number] HISTORY OF PRESENT ILLNESS:No acute events overnight. [...] improved.Khadar Duffy MDFebruary 2017 2:42 PM Normal [facility] Phosphoruson 08-17-2017 Phosphate 2.3 mg/dL Low 2.5-4.5 [facility] Comment on above: Performed By: #### P T, PTT, AMYL, CMP, LIPA, PHOS ####[facility] [place], [place] [phone]#### TRANSF ####[facility] [address] [place], [place] [phone] Protimeon 08-17-2017 INR Coag RelTime (Bld) 1.0 {INR} Normal 0.9-1.3 [facility] Comment on above: Result Comment: Tayler min K Antagonist (VKA) Therapeutic Range: INR 2 to 3 (Target INR of 2.5)Note: For patients treated with VKA drugs, such as warfarin, the [place] [employer] 2012 Guideline recommends [...] P T, PTT, AMYL, CMP, LIPA, PHOS ####[address] [phone]#### TRANSF ####[place] [address] [place], [place] [phone] PT Sec 10.6 sec Normal 9.7-13.0 [facility] Comment on above: Performed By: #### P T, PTT, AMYL, CMP, LIPA, PHOS ####[address] [phone]#### TRANSF ####[address] [phone] XR ERCP READ ONLYon 08-17-19 18 XR [...] Kerma: 134.0 mGyDose Area Product (DAP): 0.0 mGy*dkK5Ipfwjb time: 6:57 min:secRESULT: Images demonstrate an endoscope with contrast administration. A small amount of contrast is seen. The biliary system is not well opacified.IMPRESSION: Fluoroscopic assistance for ERCP procedureTranscriptionist: NII Transcribe Date/Time: Aug 18 2017 8:33ADictated by : REJI PATEL MDThis examination was interpreted and the report reviewed and electronically signed by: REJI PATEL MD on Aug 18 2017 8:34AM [id number] Normal [facility] CBCon 08-16-2017 Erythrocyte distribution width Auto Ratio (RBC) 15.4 % High 11.5-15.0 [facility] Comment on above: Performed By: #### P T, PTT, AMYL, CMP, LIPA, PHOS ####[place] [address]#### TRANSF ####[place] [address]184[address] Erythrocytes (RBC) 3.49 10*6/uL Low 4.20-6.00 [facility] Comment on above: Performed By: #### P T, PTT, AMYL, CMP, LIPA, PHOS ####[place] [address]#### TRANSF ####[place] [address]184[address]755 Hematocrit (HCT) 29.9 % Low 39.0-51.0 [facility] Comment on above: Performed By: #### P T, PTT, AMYL, CMP, LIPA, PHOS ####[place] [address]#### TRANSF ####[place] [address]184[address] Hemoglobin mass conc (Bld) 9.8 g/dL Low 13.0-17.0 [facility] Comment on above: Performed By: #### P T, PTT, AMYL, CMP, LIPA, PHOS ####[place] [address]#### TRANSF ####[place] [address] MCH 28.1 pG Normal 26.0-34.0 [facility] Comment on above: Performed By: #### P T, PTT, AMYL, CMP, LIPA, PHOS ####[place] [address]#### TRANSF ####[place] [address] MCHC mass conc (RBC) 32.8 g/dL Normal 30.5-36.0 [facility] Comment on above: Performed By: #### P T, PTT, AMYL, CMP, LIPA, PHOS ####[place] [address]#### TRANSF ####[place] [address] MCV 85.7 fL Normal 80.0-100.0 [facility] Comment on above: Performed By: #### P T, PTT, AMYL, CMP, LIPA, PHOS ####[place] [address]#### TRANSF ####[place] [address] Platelet mean volume (PMV) 10.9 fL Normal 9.0-12.7 [facility] Comment on above: Performed By: #### P T, PTT, AMYL, CMP, LIPA, PHOS ####[place] [address]#### TRANSF ####[place] [address] Platelets 335 10*3/uL Normal 150-400 [facility] Comment on above: Performed By: #### P T, PTT, AMYL, CMP, LIPA, PHOS ####[place] [address]#### TRANSF ####[facility] [address] [place], [place] [phone] WBC (Leukocytes) 11.42 10*3/uL High 3.70-11.00 [facility] Comment on above: Performed By: #### P T, PTT, AMYL, CMP, LIPA, PHOS ####[place] [address] [place], [place] [phone]#### TRANSF ####[facility] [address] [place], [place] [phone] CONSULTon 08-16-2017 CONSULT HNO ID: [id number] thor: Jessee Lottervice: Cardiovascular DiseaseAuthor Type: PhysicianType: [...] 12.5 BIDPlan:Switch to metoprolol 25 TID.Monitor.CAD. Remote GA, PCI in 2013.No angina.Duodenal mass and obstructive jaundices/p perc drain placement.-plan is for ERCP with possible duodenal stent placement tomorrow.[facility] [place] STAFF PHYSICIAN NOTE OF PERSONAL INVOLVEMENT IN [...] of the patient's care.STAFF PHYSICIAN: Jessee Mayorga [facility]ATE OF SERVICE: August 16, 2017TIME OF SERVICE: 4:36 [facility] COMPLAINT: abdominal painRocio Jackson is a 62 year old male, he lives in [place]. 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 Followed by general [...] Date- ANGIOPLASTY HX 05/15/2011 2 stents s/p GA;[facility]- CHOLECYSTECTOMY 08/11/2017 [facility]- PICC LINE INSERT/CONSULT 08/16/2017Past Family History:non [...] EKGTelemetrySIGNATURE: Sabrina Arango CNP PATIENT NAME: Rocio Sibley: August 16, 2017 : 3:56 PM PAGER/CONTACT #: Normal [facility] Magnesiumon 08-16-2017 Magnesium 2.3 mg/dL Normal 1.7-2.6 [facility] Comment on above: Performed By: #### P T, PTT, AMYL, CMP, LIPA, PHOS ####[facility] [place], [place] [phone]#### TRANSF ####[facility] [address] [place] [phone] NURSING PROGon 08-16-2017 NURSING PROG HNO ID: [id number] thor: Nolvia KenRn) Genevieve, RNService: PICC TeamAuthor Type: Registered NurseType: Nursing Progress NoteFiled: 08/16/2017 8:05 AMNote Text:PICC/VASCULAR ACCESS PROGRESS NOTESERVICE DATE: 08/16/2017SERVICE TIME: 8:00 amPICC line ordered, heparin gtt currently on hold, plan for patient toreceive TPN, Double lumen chloraguard PICC recommended. Will continue tofollow.SIGNATURE: Nolvia Vallejo RN PATIENT NAME: Rocio Sibley: August 16, 2017 : 8:03 AM PAGER/CONTACT #: [phone] [facility] NURSING PROG HNO ID: [id number] thor: Shavonne Arreola) [place], RNService: NursingAuthor Type: Registered NurseType: Nursing Progress NoteFiled: 08/16/2017 6:50 PMNote Text: Nursing Progress NotePatient Name: Rocio HayesN: [id number] Location: [address]/[id number] ____Daily Note:0730: SROC alpha paged re: PT/INR [...] gtt and admin vitamin K. Spoke with [facility] for GI service,repeat PT/INR ordered for 1200 tomorrow 08/17 prior to ERCP scheduled aoh0670, and if heparin gtt restarted prior to [...] 25 mg PO per new order, HR qztocet541's. SROC paged for chlorasetic spray and throat lozenge for pt c/othroat irritation from NGT.1800: Blood glucose 139, no SSI coverage required. Safety maintained.Pt resting in bed.This note was completed by: Shavonne Mays RN [facility] NURSING PROG HNO ID: [id number] thor: Deneen (Rn) Melanie, RNService: (none)Author Type: Registered NurseType: Nursing Progress NoteFiled: 08/16/2017 4:44 AMNote Text: Nursing Progress NotePatient Name: Rocio JacksonMRN: [id number] Location: [place] [address]/[id number] ____Daily Note:Late entry 08/15 Labs drawn for start of heparin drip. INR2.0 Order to notify team when INR equal to or greater than 2.0.0350: Team notified that INR 2.0. Order to hold heparin drip until morninglabs back with INR results. Will continue to monitor.0428: Text page to surgery for bladder scan of 665 ml and change in NGcolor from bile to brownish [id number]: SROC up to see and assess pt. Continue to monitor bladder as pt ishaving no symptoms of discomfort at this time. Wait to start heparin dripuntil Am labs. Continue to monitor NG output.This note was completed by: Deneen Navarro RN [facility] PLAN OF CAREon 08-16-2017 PLAN OF CARE HNO ID: [id number] thor: Gissell (Griselda) Riyaervice: GastroenterologyAuthor Type: Nurse PractitionerType: Plan of CareFiled: 08/16/2017 12:58 PMNote Text:In anticipation of ERCP tomorrow:INR notedPatient will need Vitamin K today and stat INR one hour prior to procedure(ordered)Stop Heparin drip 6 hrs prior to procedure as per surgeryDiscussed with Dr. Candelaria you for allowing us to participate in the care of Mr. Jackson. Pleasecall with any questions or concerns.Gissell Smithk, CNPNorthshore GastroenterologyOffice: Cell: [facility] PROCEDUREon 08-16-2017 PROCEDURE HNO ID: [id number] thor: Luis KenRnLyric Shaffer, RNService: PICC TeamAuthor Type: Registered NurseType: [...] Discussion: Shayan Shaffer RNCATHETER PLACEMENTBrand: Cholkettygard Lot: [id number] of Lumens: 2Type of PICC: Power Injectable [...] NoneCOMPLICATIONS: NonePatient Education Materials: Placed in chartThe [facility] Central Line Insertion checklist, attached to theCentral Line-Associated Bloodstream Infection Prevention Policy, wasutilized during this procedure.QUESTIONS or PROBLEMS: Page [phone] weekendSIGNATURE: Luis Shaffer RN PATIENT NAME: Rocio TorresschDATE: August 16, 2017 : 8:35 AM PAGER/CONTACT PHONE: [facility] PROGRESSon 08-16-2017 PROGRESS HNO ID: [id number] thor: Lourdes Earle: GastroenterologyAuthor Type: PhysicianType: Progress NotesFiled: 08/16/2017 6:45 PMNote Text:[facility] Progress NoteSERVICE DATE: August 16, 2017SUBJECTIVENo [...] 95%Weight:Height:Body mass index is 29.28 kg/(m2).GENERAL: NAD, CCLc5YESXQ: PERRLA, EOMI, normal OPCV: RRR, normal S1, [...] on [facility] you for allowing us to participate in the care of this patient.Please call with any further questions or concerns.Lourdes Ferrari MDCedar Mill Gastroenterology#: [phone]: Lourdes Ferrari MD PATIENT NAME: Rocio JacksonDATE: August 16, 2017 : 2:42 PM PAGER: [phone] [facility] PROGRESS HNO ID: [id number] thor: Khadar Chaneye: General SurgeryAuthor Type: PhysicianType: Progress NotesFiled: 08/16/2017 1:47 PMNote Text: SURGERY INPATIENT PROGRESS NOTESName: Rocio JacksonMRN: [id number] and Plan:62 year old male with near-obstructing [...] lb 9.6 oz) SpO2 92% BMI 29.28 kg/f9Elxgks/Output Summary (Last 24 hours) at 08/16/17 0835Last data filed at 08/16/17 0631 Gross per 24 hourIntake 3079 mlOutput 2640 mlNet 439 mlGeneral Appearance: NADAbdomen: soft, non-tender, mild distention. Drains in place, biliousoutput.Akbar Lassiter MDGENEADENA HEALTH SYSTEM SURGERY PGY-48:35 AM08/16/2017*A review of daily goals, [...] results tomorrow.Khadar Duffy MDFebruary 2017 1:47 PM [facility] PT EDon 08-16-2017 PT ED HNO ID: [id number] thor: Luis (Rn) Edmund, RNService: PICC TeamAuthor Type: Registered NurseType: Patient EducationFiled: 08/16/2017 8:34 AMNote Text:PATIENT EDUCATION TOPIC: PROCEDURE / SURGERY: Procedure/Surgery: PICCinsertion under US guidancePATIENT NAME: Rocio JacksonMRN: [id number] LOCATION: [place] [address]/[id number] S TO LEARNCOGNITIVE ABILITY: Alert and orientedMOTIVATION TO LEARN: EagerInterestedFAMILY SUPPORT: High - Very involved in pt careINSTRUCTION PROVIDED TO: Patient and Family memberPATIENT LEARNS BEST BY: Individual InstructionVerbal InstructionFACTORS AFFECTING LEARNING: NonePHYSICAL LIMITATIONS AFFECTING LEARNING: NoneLEARNING RESPONSEDIAGNOSIS: ADULT: Duodenal obstructionPATIENT/FAMILY RESPONSE: Verbalizes understanding of: CSIH-ZESRKEUQGYVORDVARXKVM-E orrect actions to take to reduce post procedurecomplicationsPRE-MN OCEDURE INSTRUCTIONS-Correct action to take to follow pre-procedureinstructionsMET HOD OF INSTRUCTION: Individual instructionVerbal instructionFOLLOW-UP PLAN: Patient instructed to call with any further issuesFollow-up with Primary CareINSTRUCTIONAL AIDS USED: NASUPPLEMENTAL MATERIAL PROVIDED TO PATIENT: NoneREFERRAL (RECOMMENDATION): NoneElectronically Signed By: Luis Shaffer RN [facility] Phosphoruson 08-16-2017 Phosphate 2.1 mg/dL Low 2.5-4.5 [facility] Comment on above: Performed By: #### P T, PTT, AMYL, CMP, LIPA, PHOS ####[facility] [place], [place] [phone]#### TRANSF ####[facility] [place], [place] [phone] Protimeon 08-16-2017 INR Coag RelTime (Bld) 2.0 {INR} High 0.9-1.3 [facility] Comment on above: Result Comment: Tayler min K Antagonist (VKA) Therapeutic Range: INR 2 to 3 (Target INR of 2.5)Note: For patients treated with VKA drugs, such as warfarin, the [place] [employer] 2012 Guideline recommends [...] 3).Keegan GH, et al. Chest 2012, 141:7S-47SNishneto CENTENO, et al. [facility] 2017, 70: 252-289 Performed By: #### P T, PTT, AMYL, CMP, LIPA, PHOS ####[address] [phone]#### TRANSF ####[address] [phone] PT Sec 19.5 sec High 9.7-13.0 [facility] Comment on above: Performed By: #### P T, PTT, AMYL, CMP, LIPA, PHOS ####[address] [phone]#### TRANSF ####[address] [phone] XR CHEST 1V PORT POST PICC - [...] place; Check tip position following PICC placement.M: [id number]: 08/13/2017RESULT:1. Lines / Tubes: a. Interval placement [...] ease, it is acceptable for venous access use.Ditch Cleaner: NII Transcribe Date/Time: Aug 16 2017 10:15ADictated by : AURORA ROMERO MDThis examination was interpreted and the report reviewed and electronically signed by: AURORA ROMERO MD on Aug 16 2017 10:16AM [id number] [facility] ALLIED HEALTHon 08-15-2017 ALLIED HEALTH HNO ID: [id number] thor: Jennifer Win CtService: (none)Author Type: (none)Type: Allied HealthFiled: 08/15/2017 2:49 PMNote Text: Radiology Service Progress NotePATIENT NAME: Rocio HayesN: [id number] OF SERVICE: August 15, 2017TIME: 2:48 PMPATIENT IDENTITY VERIFICATION COMPLETED USING TWO (2) METHODS: Patientconfirmed name verbally and ID band matches..PATIENT GENDER DATA: MalePATIENT RELEVANT IMPLANT DATA REVIEWED: Not ApplicableRADIOLOGY DEPARTMENT: CT; Exam(s) Completed: ABSCESS DRAINAGEPERIPHERAL IV DATA: Not applicableSIGNED BY: Jennifer Win CtFebruburnsville 2017 2:48 PM [facility] BRIEF OP NOTon 08-15-2017 BRIEF OP NOT HNO ID: [id number] thor: Reji Samaniegoe: RadiologyAuthor Type: PhysicianType: Brief Op NoteFiled: 08/15/2017 [...] 15, 2017 : 2:45 PM PAGER/CONTACT #: [phone] Normal [facility] Blood Cultureon 08-15-2017 Bacteria culture Sp. Request/Comment: - The blood culture bottles are underfilled. Adding volume lower or higher than the 8 to 10 mL per bottle, which is the manufacturers recommended volume, may adversely affect the recovery and/or detection of organisms. 10.9MLCulture Result - No growth 5 days Normal [facility] Comment on above: Performed By: #### P T, PTT, AMYL, CMP, LIPA, PHOS ####[place] [address]#### TRANSF ####[place] [address] Bacteria culture Culture Result - No growth 5 days Normal [facility] Comment on above: Performed By: #### P T, PTT, AMYL, CMP, LIPA, PHOS ####[place] [address]#### TRANSF ####[place] [address] CBCon 08-15-2017 Erythrocyte distribution width Auto Ratio (RBC) 15.2 % High 11.5-15.0 [facility] Comment on above: Performed By: #### P T, PTT, AMYL, CMP, LIPA, PHOS ####[place] [address]#### TRANSF ####[place] [address] Erythrocytes (RBC) 3.46 10*6/uL Low 4.20-6.00 [facility] Comment on above: Performed By: #### P T, PTT, AMYL, CMP, LIPA, PHOS ####[place] [address]#### TRANSF ####[place] [address] Hematocrit (HCT) 29.3 % Low 39.0-51.0 [facility] Comment on above: Performed By: #### P T, PTT, AMYL, CMP, LIPA, PHOS ####[place] [address]#### TRANSF ####[place] [address] Hemoglobin mass conc (Bld) 9.7 g/dL Low 13.0-17.0 [facility] Comment on above: Performed By: #### P T, PTT, AMYL, CMP, LIPA, PHOS ####[place] [address]#### TRANSF ####[place] [address] MCH 28.0 pG Normal 26.0-34.0 [facility] Comment on above: Performed By: #### P T, PTT, AMYL, CMP, LIPA, PHOS ####[address]#### TRANSF ####[place] [address] MCHC mass conc (RBC) 33.1 g/dL Normal 30.5-36.0 [facility] Comment on above: Performed By: #### P T, PTT, AMYL, CMP, LIPA, PHOS ####[place] [address]#### TRANSF ####[place] [phone] MCV 84.7 fL Normal 80.0-100.0 [facility] Comment on above: Performed By: #### P T, PTT, AMYL, CMP, LIPA, PHOS ####[place] [address]#### TRANSF ####[place] [phone] Platelet mean volume (PMV) 10.2 fL Normal 9.0-12.7 [facility] Comment on above: Performed By: #### P T, PTT, AMYL, CMP, LIPA, PHOS ####[place] [address]#### TRANSF ####[place] [address] Platelets 302 10*3/uL Normal 150-400 [facility] Comment on above: Performed By: #### P T, PTT, AMYL, CMP, LIPA, PHOS ####[place] [address]#### TRANSF ####[place] [phone] WBC (Leukocytes) 12.79 10*3/uL High 3.70-11.00 [facility] Comment on above: Performed By: #### P T, PTT, AMYL, CMP, LIPA, PHOS ####[place] [address]#### TRANSF ####[place] [phone] Erythrocyte distribution width Auto Ratio (RBC) 15.3 % High 11.5-15.0 [facility] Comment on above: Performed By: #### P T, PTT, AMYL, CMP, LIPA, PHOS ####[place] [address]#### TRANSF ####[place] [address] Erythrocytes (RBC) 3.99 10*6/uL Low 4.20-6.00 [facility] Comment on above: Performed By: #### P T, PTT, AMYL, CMP, LIPA, PHOS ####[place] [address]#### TRANSF ####[place] [address] Hematocrit (HCT) 33.4 % Low 39.0-51.0 [facility] Comment on above: Performed By: #### P T, PTT, AMYL, CMP, LIPA, PHOS ####[place] [address]#### TRANSF ####[place] [address] Hemoglobin mass conc (Bld) 11.1 g/dL Low 13.0-17.0 [facility] Comment on above: Performed By: #### P T, PTT, AMYL, CMP, LIPA, PHOS ####[place] [address]#### TRANSF ####[place] [address] MCH 27.8 pG Normal 26.0-34.0 [facility] Comment on above: Performed By: #### P T, PTT, AMYL, CMP, LIPA, PHOS ####[place] [address]#### TRANSF ####[place] [phone] MCHC mass conc (RBC) 33.2 g/dL Normal 30.5-36.0 [facility] Comment on above: Performed By: #### P T, PTT, AMYL, CMP, LIPA, PHOS ####[place] [address]#### TRANSF ####[place] [phone] MCV 83.7 fL Normal 80.0-100.0 [facility] Comment on above: Performed By: #### P T, PTT, AMYL, CMP, LIPA, PHOS ####[place] [address]#### TRANSF ####[place] [phone] Platelet mean volume (PMV) 11.9 fL Normal 9.0-12.7 [facility] Comment on above: Performed By: #### P T, PTT, AMYL, CMP, LIPA, PHOS ####[place] [address]#### TRANSF ####[place] [address] Platelets 328 10*3/uL Normal 150-400 [facility] Comment on above: Performed By: #### P T, PTT, AMYL, CMP, LIPA, PHOS ####[place] [address]#### TRANSF ####[place] [address] WBC (Leukocytes) 16.33 10*3/uL High 3.70-11.00 [facility] Comment on above: Performed By: #### P T, PTT, AMYL, CMP, LIPA, PHOS ####[address]#### TRANSF ####[place] [phone] CONSULTon 08-15-2017 CONSULT HNO ID: [id number] thor: Gissell Michael) GerrekService: GastroenterologyAuthor Type: Nurse PractitionerType: ConsultsFiled: 08/15/2017 4:44 PMNote Text: -Attestation signed by Lourdes Ferrari at 08/17/2017 10:00 AMATTENDING NOTE:?I performed a history and physical examination of the patient and supervisedand discussed plan of care and management with the PA/FUELS SALES REPRESENTATIVE. I reviewed thePA/FUELS SALES REPRESENTATIVE's note and agree with the documented findings and plan of care.? ?Thank you for allowing us to participate in the care of this patient. Pleasecall with any questions or concerns.Anika TamayoKittson Memorial Hospital GastroenterologyHonorhealth Scott[facility] [phone] --------CONSULT: [facility] SERVICESERVICE DATE: 08/15/2017SERVICE TIME: 9:04 AMREASON FOR CONSULT: ERCPREQUESTING PHYSICIAN: Dr. Michael [facility]Ever[facility] PHYSICIAN: No primary care provider on file.SubjectiveMr. Jackson is a 62 year old male with PMH of CAD s/p stent x2, type 2 DMon metformin, HTN, glaucoma, PSH of cholecystectomy (08/11/2017, ERCP08/13/17) who was transferred [facility] for management of partial duodenalobstruction. 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 [facility] 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 He was transferred to [facility] for further evaluationand treatment. Following admission patient [...] Date- ANGIOPLASTY HX 05/15/2011 2 stents s/p GA;[facility]- [facility]CY[facility]Y [facility]11/2017 [facility]No [facility] history on file.Social HistorySubstance Use [...] by mouth once daily. Disp: Rfl:08/10/[address] [place] [address] medications:oxyCODONE IR 5 mg tab(s) (ROXICODONE) 5 [...] control as per primary service-Maintain NPO-IV Cipro front man for ERCP (ordered)D/w Dr. Nava and Dr. FerrariSIGNATURE: Gissell Serrato CNP PATIENT NAME: Rocio FrischDATE: August 15, 2017 : 9:04 AM PAGER: [phone] [facility] [address] PERIT/RETROP FL BIon [...] with administration of agent, ends when continuous dgmj-ry-hlfz time ends): 14 minutese) Patient monitoring: Continuous ECG, pulse oximetry and cardiopulmonary monitoring was performed during the entire procedure by both the physician and nurse.-I, the procedural radiologist personally supervised and directed the independent trained observer who assisted in monitoring the patient's level of consciousness and physiological status throughout the procedure.Catheter/ needle used: 5 Moldovan Yueh, 8 Moldovan pigtail.Imaging guidance with images saved into the permanent archive: CTTechnique: Using CT guidance a 5 Moldovan catheter was inserted into the abscess collection in the gastrohepatic location. Serial dilatation was performed over a wire and an 8 Moldovan pigtail catheter was inserted into the abscess collection. Approximately 110 cc of dark red serous fluid was obtained.Sample obtained: As aboveEstimated blood loss: Less than 1 ccComplications: NoneIMPRESSION: CT-guided abscess drainage of gastrohepatic fluid collection. Nearly the entire fluid collection was drained during this procedure. An 8 Moldovan pigtail catheter remains in the location of the fluid collection and was connected to an accordion drainage bag. Patient was sent back to the room with the catheter.Ditch Cleaner: PSCB Transcribe Date/Time: Aug 15 2017 5:47PDictated by : REJI PATEL MDThis examination was interpreted and the report reviewed and electronically signed by: REJI PATEL MD on Aug 15 2017 6:07PM [id number] [facility] Comp Metabolic Panelon 08-15 Alanine aminotransferase (ALT) 205 U/L High 5-50 [facility] Comment on above: Performed By: #### P T, PTT, AMYL, CMP, LIPA, PHOS ####[place] [address]#### TRANSF ####[place] [address] Albumin 2.5 g/dL Low 3.5-5.0 [facility] Comment on above: Performed By: #### P T, PTT, AMYL, CMP, LIPA, PHOS ####[place] [address]#### TRANSF ####[place] [address] Alkaline phosphatase (ALP) 515 U/L High 40-150 [facility] Comment on above: Performed By: #### P T, PTT, AMYL, CMP, LIPA, PHOS ####[place] [address]#### TRANSF ####[place] [address] Anion gap 14 mmol/L Normal 9-18 [facility] Comment on above: Performed By: #### P T, PTT, AMYL, CMP, LIPA, PHOS ####[place] [address]#### TRANSF ####[place] [address] Aspartate aminotransferase (AST) 74 U/L High 7-40 [facility] Comment on above: Performed By: #### P T, PTT, AMYL, CMP, LIPA, PHOS ####[place] [address]#### TRANSF ####[place] [address] Bilirubin (total) 1.7 mg/dL High 0.0-1.5 [facility] Comment on above: Performed By: #### P T, PTT, AMYL, CMP, LIPA, PHOS ####[address]#### TRANSF ####[place] [address] [address]CD[address] [place] [address] Calcium 8.7 mg/dL Normal 8.5-10.5 [facility] Comment on above: Performed By: #### P T, PTT, AMYL, CMP, LIPA, PHOS ####[place] [address]#### TRANSF ####[place] [address] Chloride 98 mmol/L Normal 98-110 [facility] Comment on above: Performed By: #### P T, PTT, AMYL, CMP, LIPA, PHOS ####[place] [address]#### TRANSF ####[place] [address] CO2 24 mmol/L Normal 23-32 [facility] Comment on above: Performed By: #### P T, PTT, AMYL, CMP, LIPA, PHOS ####[place] [address]#### TRANSF ####[place] [address] [place] [place] [address] Creatinine 0.62 mg/dL Low 0.70-1.40 [facility] Comment on above: Performed By: #### P T, PTT, AMYL, CMP, LIPA, PHOS ####[place] [address]#### TRANSF ####[place] [address] [address]CD[address] [place] [address] eGFR (non-black) mL/min/{1.73_m2} Normal >60 [facility] Comment on above: Performed By: #### P T, PTT, AMYL, CMP, LIPA, PHOS ####[place] [address]206[address]#### TRANSF ####[place] [address] Glucose mass conc 151 mg/dL High 65-100 [facility] Comment on above: Performed By: #### P T, PTT, AMYL, CMP, LIPA, PHOS ####[place] [address]#### TRANSF ####[place] [address] Potassium molar conc 3.5 mmol/L Normal 3.5-5.0 [facility] Comment on above: Performed By: #### P T, PTT, AMYL, CMP, LIPA, PHOS ####[place] [address]#### TRANSF ####[place] [phone] Protein 6.4 g/dL Normal 6.0-8.4 [facility] Comment on above: Performed By: #### P T, PTT, AMYL, CMP, LIPA, PHOS ####[place] [address]#### TRANSF ####[place] [address]184[address] Sodium 136 mmol/L Normal 135-146 [facility] Comment on above: Performed By: #### P T, PTT, AMYL, CMP, LIPA, PHOS ####[address]#### TRANSF ####[place] [phone] Urea nitrogen 12 mg/dL Normal 10- [facility] Comment on above: Performed By: #### P T, PTT, AMYL, CMP, LIPA, PHOS ####[facility] [place], [place] [phone]#### TRANSF ####[facility] [address] [place], [place] [phone] HISTORY PHYSICALon 8 HISTORY PHYSICAL HNO ID: [id number] thor: Reji Samaniegoe: RadiologyAuthor Type: PhysicianType: HANDPFiled: [...] Date- ANGIOPLASTY HX 05/15/2011 2 stents s/p GA;[facility]- [facility]Y 08/11/2017 [facility] as of 08/13/17 2301Medication Sig Last Dose Takingaspirin, enteric coated (ECOTRIN LOW STRENGTH) 81 mg EC tablet Take 162 mgby mouth once daily. Past Week at Unknown time Yeslisinopril 2.5 mg tablet Take 2.5 mg by mouth once daily. 08/11/2017 um3232 Yesatorvastatin (LIPITOR) 40 mg tablet Take 40 [...] August 15, 2017 : 2:05 PM PAGER: [phone] Normal [facility] Magnesiumon 08-15-2017 Magnesium 2.0 mg/dL Normal 1.7-2.6 [facility] Comment on above: Performed By: #### P T, PTT, AMYL, CMP, LIPA, PHOS ####[facility] [place] [phone]#### TRANSF ####[facility] [address] [place] [phone] NURSING PROGon 08-15-2017 NURSING PROG HNO ID: [id number] thor: Saima Kramer (Rn) Debra, RNService: (none)Author Type: Registered NurseType: Nursing Progress NoteFiled: 08/15/2017 6:48 PMNote Text: Nursing Progress NotePatient Name: Rocio JacksonMRN: [id number] Location: [address]36/[id number] ____Daily Note:Pt phos level 2.2 - text [...] cough.Safety maintained.This note was completed by: Saima iRchardson RN [facility] NUTRITIONon 08-15-2017 NUTRITION HNO ID: [id number] thor: Alana Greenwood (Gordo) SunilService: Nutrition TherapyAuthor Type: Registered DietitianType: NutritionFiled: 08/15/2017 1:17 PMNote Text:NUTRITION SUPPORT TEAMTOPIC: NUTRITION SUPPORT PROGRESS NOTEPATIENT NAME: Rocio JacksonMRN: [id number] OF : 1955DATE: 08/15/2017Nutritional Status: SEVERE PROTEIN [...] 87 kgResting Metabolic Rate: 1661Estimated kilocalorie needs: 1050-7685 kilocalories determined by 25-28kcal/kgEstimated protein needs:113 - [...] lb 9.6 oz) SpO2 92% BMI 29.28 kg/s8Xdxxvpx Weight: Weight: 87.4 kg (192 lb 9.6 [...] -- --CA 8.7 -- 8.5 8.9Recent Labs [id number] 7*Accuchecks:Glucose, Point of Care (mg/dL)Date Value08/15/2017 141 (A)08/15/2017 154 (A)08/15/2017 138 (A)08/14/2017 148 (A)Alana Barber RD, LDPager: For further assistance and weekends please page the Group [phone] :3 [facility] PROGRESSon 08-15-2017 PROGRESS HNO ID: [id number] thor: Kael (Res) ASHLEY Hernandezervice: General SurgeryAuthor Type: ResidentType: Progress NotesFiled: 08/15/2017 7:29 PMNote Text:GENERAL SURGERY PROGRESS NOTENAME: Rocio AbigailN: [id number] 2017 7:20 PMASSESSMENT AND PLAN:Mr. Jackson is [...] for TPN- Dispo: ARLINE HERNANDEZ MDGeneral SurgeryPager: [phone]*On weekends or nights (after 1800) please contact the surgery on callpager.*SUBJECTIVE: No acute issues overnight and during the day. Restingcomfortably in bed.OBJECTIVE:BP 109/58 Pulse 78 Temp 36.3 ?C (97.4 ?F) (Oral) Resp 18 Ht 172.7cm (5' 8 ) Wt 87.4 kg (192 lb 9.6 oz) SpO2 94% BMI 29.28 kg/t8SHIIVWN: alert, NADLUNGS: breathing comfortablyCARDIAC: irregularABDOMEN: mildly TTP in upper abd, mildly distended, softEXTREMITIES: warm and well perfusedDRAINS/LINES: bilious drainage from JPDate 08/14/17 1500 - 08/15/17 0659 08/15/17 0700 - 08/16/17 0659Shift 7261-6292 1900-5050 24 Hour Total 3329-4458 8083-0560 9968-1997 24Hour TotalINTAKE PO 60 60 30 30 PO 60 60 30 30 IV 2018 2018 274 268 0879 NS 0.9% 2018 2018 237 469 4381 Irrigants 20 40 30 30 Irrigant/Flush Amount In (GI Feed/Drain 08/14/17 0109 Nasogastric RightNaris 18 Fr) 20 40 30 30 Shift Total 2099 2119 744 665 1409OUTPUT Urine 575 1125 425 425 Void (ml) 575 1125 425 425 Tubes 295 987 2558 330 445 775 Drain/Tube Output (Drain/Tube Admission to [facility] RightLower Quadrant Abdomen) 260 30 370 140 70 210 Drain/Tube Output (Drain/Tube 08/15/17 1530 Assessment Right UpperAbdomen) 275 275 Output (GI Feed/Drain 08/14/17108 Nasogastric Right Naris 18 Fr) 439555 5162 190 100 290 # of BMs Number [...] -- 395*ALT 205* -- 370* -- 418* [facility] PROGRESS HNO ID: [id number] thor: Khadar DuffyService: General SurgeryAuthor Type: PhysicianType: [...] course.Khadar Duffy MDFebruary 2017 5:53 PM(late entry) [facility] PT EDon 08-15-2017 PT ED HNO ID: [id number] thor: Dhara (Rn) MOUSTAPHA Riveroervice: RadiologyAuthor Type: [...] instructionPATIENT / FAMILY RESPONSE: Verbalizes understanding of: GMIP-USDZQCDIURCANYDOMDASU-Q orrect actions to take to reduce post procedurecomplicationsPRE-MN OCEDURE INSTRUCTIONS-Correct action to take to follow pre-procedureinstructionsFOL LOW-UP PLAN: Complete - No need for follow-upSUPPLEMENTAL MATERIAL: Title of written material: Abcess drain andSedation informationREFERRAL (RECOMMENDATION): NoneElectronically Signed By: Dhara Rivero RN In Department: [facility] PK3C Normal [facility] PTT,Anticoag Therapyon 08-15 aPTT 39.8 s High 23.0-32.4 [facility] Comment on above: Result Comment: Unfr actionated [...] laboratory APTT reagent in use throughout the [facility]. Performed By: #### P T, PTT, AMYL, CMP, LIPA, PHOS ####[place] [phone]#### TRANSF ####[place] [address] [place] [phone] Phosphoruson 08-15-2017 Phosphate 2.2 mg/dL Low 2.5-4.5 [facility] Comment on above: Performed By: #### P T, PTT, AMYL, CMP, LIPA, PHOS ####[place] [phone]#### TRANSF ####[place] [address] [place] [phone] Protimeon 08-15-2017 INR Coag RelTime (Bld) 2.0 {INR} High 0.9-1.3 [facility] Comment on above: Result Comment: Tayler min K Antagonist (VKA) Therapeutic Range: INR 2 to 3 (Target INR of 2.5)Note: For patients treated with VKA drugs, such as warfarin, the [place] [employer] 2012 Guideline recommends [...] al. Chest 2012, 141:7S-47SNishimivette RA, et al. [facility] 2017, 70: 252-289 Performed By: #### P T, PTT, AMYL, CMP, LIPA, PHOS ####[place] [address]#### TRANSF ####[place] [address] [place] [phone] PT Sec 19.4 sec High 9.7-13.0 [facility] Comment on above: Performed By: #### P T, PTT, AMYL, CMP, LIPA, PHOS ####[place] [address]#### TRANSF ####[place] [phone] Urine Cultureon 08-15-2017 Urine culture, bacteria Sp. [...] <=0.25 FErtapenem SUSCEPTIBLE <=0.5 F Critically abnormal [facility] Comment on above: Performed By: #### P T, PTT, AMYL, CMP, LIPA, PHOS ####[facility] [place], [place] [phone]#### TRANSF ####[address] [phone] Wound Culture/Stainon 2017 Wound Culture/Stain Sp. Request/Comment: - Specimen received in sterile container.Smear Result - Rare Gram positive cocci in pairs and chains --> ABNORMAL ALERT No Polymorphonuclear LeukocytesCulture Result - Moderate Streptococcus mutans group --> ABNORMAL ALERTORGANISM: Streptococcus mutans groupMETHOD: Minimum inhibitory concentration (VIZION)Antibiotic Interp JOLENE StatusPenicillin G SUSCEPTIBLE <=0.03 FVancomycin SUSCEPTIBLE <=0.5 FCeftriaxone SUSCEPTIBLE <=0.12 FClindamycin SUSCEPTIBLE <=0.12 F Critically abnormal [facility] Comment on above: Performed By: #### W CUL ####[place] [address] [place], [place] [phone] ALLIED HEALTHon 08-14-2017 ALLIED HEALTH HNO ID: [id number] thor: Albert Sutherland: (none)Author Type: (none)Type: Allied HealthFiled: 08/14/2017 7:17 PMNote Text: Radiology Service Progress NotePATIENT NAME: Rocio HayesN: [id number] OF SERVICE: August 14, 2017TIME: 7:16 PMPATIENT IDENTITY VERIFICATION COMPLETED USING TWO (2) METHODS: Patientconfirmed name verbally and ID band matches..PATIENT GENDER DATA: MalePATIENT RELEVANT IMPLANT DATA REVIEWED: Not ApplicableCONTRAST INDUCED NEPHROPATHY RISK FACTORS: Patient age > 60 yearsCREATININE:CreatinineDa te Value Ref Range Oyrzma3308/14/2017 0.61 (L) 0.70 - 1.40 mg/dL Final08/14/2017 0.63 (L) 0.70 - 1.40 mg/dL Final eGFR-All Other RacesDate Value Ref Range Xzgdmb8208/14/2017 >60 >60 . Final eGFR- AmericanDate Value Ref Range Gkiatk4208/14/2017 >60 >60 Final P.O.C.T. RESULTS: POC done: Yes, See Lab Tab August 14, 2017RADIOLOGIST NOTIFIED?: LacyERGIES: Reviewed and unchangedCONTRAST ALLERGY: NO.PERIPHERAL IV ACCESS: Inpatient: see LDA documentationRADIOLOGY DEPARTMENT: CT; Exam(s) Completed: Abdomen/Pelvis , Chest andPancreasSIGNED BY: Albert Vaughan 2017 7:16 PM Normal [facility] ALLIED HEALTH HNO ID: [id number] thor: Denise Graham RTService: (none)Author Type: (none)Type: Allied HealthFiled: 08/14/2017 1:32 AMNote Text: Radiology Service Progress NotePATIENT NAME: Rocio HayesN: [id number] OF SERVICE: August 14, 2017TIME: 1:32 AMPATIENT IDENTITY VERIFICATION COMPLETED USING TWO (2) METHODS: Patientconfirmed name verbally and ID band matches..PATIENT GENDER DATA: MalePATIENT RELEVANT IMPLANT DATA REVIEWED: Not ApplicableRADIOLOGY DEPARTMENT: General X-ray: Exam(s) Completed: Chest X-RayAbdomen X-Ray AbdomenPERIPHERAL IV DATA: Not applicableSIGNED BY: Denise ESPINALEast [facility] 2017 1:32 AM Normal [facility] APTTon 08-14-2017 aPTT 31.6 s Normal 23.0-32.4 [facility] Comment on above: Result Comment: Unfr actionated [...] laboratory APTT reagent in use throughout the [facility]. Performed By: #### P T, PTT, AMYL, CMP, LIPA, PHOS ####[facility] [place], [place] [phone]#### TRANSF ####[facility] [place], [place] [phone] aPTT 30.2 s Normal 23.0-32.4 [facility] Comment on above: Result Comment: Unfr actionated [...] laboratory APTT reagent in use throughout the [facility]. Performed By: #### P T, PTT, AMYL, CMP, LIPA, PHOS ####[place] [address]206[address]71[address]#### TRANSF ####[address] [phone] Amylaseon 08-14-2017 Amylase 59 U/L Normal 0-137 [facility] Comment on above: Performed By: #### P T, PTT, AMYL, CMP, LIPA, PHOS ####[place] [address]206[address]#### TRANSF ####[address] [phone] Bilirubin, Fluidon 8 Bilirubin (direct) 6.1 mg/dL Critically abnormal See Comment [facility] Comment on above: Result Comment: Sero us [...] document C49A. SAIMA Contreras: Clinical Laboratory Standards [place]: 2007.2. Nani Montalvo Hay T, Andra Y et al. The Determination of Bile Leakage in Complex Hepatectomy Based on the Guidelines of the International Study Group of Liver Surgery. World J Surg. 2014 38:168-176.This test was developed and its performance characteristics determined by [facility]'s [facility] Pathology and Laboratory Medicine [place] ([facility]).It has not been cleared or approved by the FDA. [facility] is regulated under CLIA as qualified to perform high-complexity testing.This test is used for clinical purposes. It should not be regarded as investigational or for research. Performed By: #### P T, PTT, AMYL, CMP, LIPA, PHOS ####[place] [address]#### TRANSF ####[place] [address] Fluid Other Normal [facility] Comment on above: Result Comment: ROMINA HERNÁNDEZ Performed By: #### P T, PTT, AMYL, CMP, LIPA, PHOS ####[place] [address]#### TRANSF ####[place] [address] CBCon 08-14-2017 Erythrocyte distribution width Auto Ratio (RBC) 15.2 % High 11.5-15.0 [facility] Comment on above: Performed By: #### P T, PTT, AMYL, CMP, LIPA, PHOS ####[place] [address]#### TRANSF ####[place] [address] Erythrocytes (RBC) 3.70 10*6/uL Low 4.20-6.00 [facility] Comment on above: Performed By: #### P T, PTT, AMYL, CMP, LIPA, PHOS ####[place] [address]#### TRANSF ####[place] [address] Hematocrit (HCT) 31.7 % Low 39.0-51.0 [facility] Comment on above: Performed By: #### P T, PTT, AMYL, CMP, LIPA, PHOS ####[place] [address]#### TRANSF ####[place] [phone] Hemoglobin mass conc (Bld) 10.7 g/dL Low 13.0-17.0 [facility] Comment on above: Performed By: #### P T, PTT, AMYL, CMP, LIPA, PHOS ####[place] [address]#### TRANSF ####[place] [phone] MCH 28.9 pG Normal 26.0-34.0 [facility] Comment on above: Performed By: #### P T, PTT, AMYL, CMP, LIPA, PHOS ####[place] [address]#### TRANSF ####[place] [address]184[address]5755 MCHC mass conc (RBC) 33.8 g/dL Normal 30.5-36.0 [facility] Comment on above: Performed By: #### P T, PTT, AMYL, CMP, LIPA, PHOS ####[place] [address]#### TRANSF ####[place] [address] MCV 85.7 fL Normal 80.0-100.0 [facility] Comment on above: Performed By: #### P T, PTT, AMYL, CMP, LIPA, PHOS ####[place] [phone]#### TRANSF ####[address] [phone] Platelet mean volume (PMV) 12.1 fL Normal 9.0-12.7 [facility] Comment on above: Performed By: #### P T, PTT, AMYL, CMP, LIPA, PHOS ####[place] [address]#### TRANSF ####[place] [phone] Platelets 285 10*3/uL Normal 150-400 [facility] Comment on above: Performed By: #### P T, PTT, AMYL, CMP, LIPA, PHOS ####[place] [address]#### TRANSF ####[place] [phone] WBC (Leukocytes) 11.53 10*3/uL High 3.70-11.00 [facility] Comment on above: Performed By: #### P T, PTT, AMYL, CMP, LIPA, PHOS ####[place] [address]#### TRANSF ####[place] [phone] CT CHEST W IVCONon 8 CT CHEST [...] pelvis.IMPRESSION: Bilateral effusions with associated atelectasis versus infiltrates.Ditch Cleaner : [facility] MEDICAL CENTERShefali Transcribe Date/Time: Aug 14 2017 8:43PDictated by : AURORA ROMERO MDThis examination was interpreted and the report reviewed and electronically signed by: AURORA ROMERO MD on Aug 14 2017 8:46PM [id number] Normal [facility] CT PANCREAS/PELVIS W IVCONon 08-14-2017 CT PANCREAS/PELVIS [...] ROMERO MD on Aug 15 2017 5:11PM [id number] Normal [facility] Metabolic Panelon 08-14 Alanine aminotransferase (ALT) 370 U/L High 5-50 [facility] Comment on above: Performed By: #### P T, PTT, AMYL, CMP, LIPA, PHOS ####[place] [address]#### TRANSF ####[place] [address]184[address] Albumin 2.9 g/dL Low 3.5-5.0 [facility] Comment on above: Performed By: #### P T, PTT, AMYL, CMP, LIPA, PHOS ####[place] [address]#### TRANSF ####[place] [phone] Alkaline phosphatase (ALP) 727 U/L High 40-150 [facility] Comment on above: Performed By: #### P T, PTT, AMYL, CMP, LIPA, PHOS ####[place] [address]#### TRANSF ####[place] [phone] Anion gap 15 mmol/L Normal 9-18 [facility] Comment on above: Performed By: #### P T, PTT, AMYL, CMP, LIPA, PHOS ####[place] [address]#### TRANSF ####[place] [address]184[address] Aspartate aminotransferase (AST) 285 U/L High 7-40 [facility] Comment on above: Performed By: #### P T, PTT, AMYL, CMP, LIPA, PHOS ####[place] [address]#### TRANSF ####[place] [address] Bilirubin (total) 2.3 mg/dL High 0.0-1.5 [facility] Comment on above: Performed By: #### P T, PTT, AMYL, CMP, LIPA, PHOS ####[place] [address]#### TRANSF ####[place] [address] [place] [phone] Calcium 8.5 mg/dL Normal 8.5-10.5 [facility] Comment on above: Performed By: #### P T, PTT, AMYL, CMP, LIPA, PHOS ####[place] [address]#### TRANSF ####[place] [address]184[address] Chloride 96 mmol/L Low 98-110 [facility] Comment on above: Performed By: #### P T, PTT, AMYL, CMP, LIPA, PHOS ####[place] [address]#### TRANSF ####[place] [address]184-5755 CO2 22 mmol/L Low 23-32 [facility] Comment on above: Performed By: #### P T, PTT, AMYL, CMP, LIPA, PHOS ####[place] [address]#### TRANSF ####[place] [address] [place] [phone] Creatinine 0.61 mg/dL Low 0.70-1.40 [facility] Comment on above: Performed By: #### P T, PTT, AMYL, CMP, LIPA, PHOS ####[place] [address]#### TRANSF ####[address] Av[address]iffany [place] [phone] eGFR (non-black) mL/min/{1.73_m2} Normal >60 [facility] Comment on above: Performed By: #### P T, PTT, AMYL, CMP, LIPA, PHOS ####[place] [address]206[address]71[address]#### TRANSF ####[address] Av[address]iffany [place] [phone] Glucose mass conc 147 mg/dL High 65-100 [facility] Comment on above: Performed By: #### P T, PTT, AMYL, CMP, LIPA, PHOS ####[place] [address]#### TRANSF ####[place] [phone] Potassium molar conc 3.8 mmol/L Normal 3.5-5.0 [facility] Comment on above: Performed By: #### P T, PTT, AMYL, CMP, LIPA, PHOS ####[place] [address]#### TRANSF ####[place] [phone] Protein 6.4 g/dL Normal 6.0-8.4 [facility] Comment on above: Performed By: #### P T, PTT, AMYL, CMP, LIPA, PHOS ####[place] [address]#### TRANSF ####[place] [address]184[address] Sodium 133 mmol/L Low 135-146 [facility] Comment on above: Performed By: #### P T, PTT, AMYL, CMP, LIPA, PHOS ####[place] [address]#### TRANSF ####[place] [phone] Urea nitrogen 9 mg/dL Low 10-25 [facility] Comment on above: Performed By: #### P T, PTT, AMYL, CMP, LIPA, PHOS ####[place] [address]#### TRANSF ####[place] 286184[address]5755 Alanine aminotransferase (ALT) 418 U/L High 5-50 [facility] Comment on above: Performed By: #### P T, PTT, AMYL, CMP, LIPA, PHOS ####[place] [address]#### TRANSF ####[place] [address]184[address] Albumin 3.1 g/dL Low 3.5-5.0 [facility] Comment on above: Performed By: #### P T, PTT, AMYL, CMP, LIPA, PHOS ####[place] [address]#### TRANSF ####[place] [address]184[address]5755 Alkaline phosphatase (ALP) 832 U/L High 40-150 [facility] Comment on above: Performed By: #### P T, PTT, AMYL, CMP, LIPA, PHOS ####[place] [address]#### TRANSF ####[place] [address]184[address] Anion gap 13 mmol/L Normal 9-18 [facility] Comment on above: Performed By: #### P T, PTT, AMYL, CMP, LIPA, PHOS ####[place] [address]#### TRANSF ####[place] [address] Aspartate aminotransferase (AST) 395 U/L High 7-40 [facility] Comment on above: Performed By: #### P T, PTT, AMYL, CMP, LIPA, PHOS ####[place] [address]#### TRANSF ####[place] [address]184[address] Bilirubin (total) 2.7 mg/dL High 0.0-1.5 [facility] Comment on above: Performed By: #### P T, PTT, AMYL, CMP, LIPA, PHOS ####[place] [address]#### TRANSF ####[place] [address]184[address] Calcium 8.9 mg/dL Normal 8.5-10.5 [facility] Comment on above: Performed By: #### P T, PTT, AMYL, CMP, LIPA, PHOS ####[place] [address]#### TRANSF ####[place] [address]184[address] Chloride 96 mmol/L Low 98-110 [facility] Comment on above: Performed By: #### P T, PTT, AMYL, CMP, LIPA, PHOS ####[place] [address]#### TRANSF ####[place] [address]184[address] CO2 23 mmol/L Normal 23-32 [facility] Comment on above: Performed By: #### P T, PTT, AMYL, CMP, LIPA, PHOS ####[place] [address]#### TRANSF ####[place] [address] Creatinine 0.63 mg/dL Low 0.70-1.40 [facility] Comment on above: Performed By: #### P T, PTT, AMYL, CMP, LIPA, PHOS ####[place] [address]206[address]#### TRANSF ####[place] [address]184[address] eGFR (non-black) mL/min/{1.73_m2} Normal >60 [facility] Comment on above: Performed By: #### P T, PTT, AMYL, CMP, LIPA, PHOS ####[place] [address]#### TRANSF ####[place] [address]184[address] Glucose mass conc 149 mg/dL High 65-100 [facility] Comment on above: Performed By: #### P T, PTT, AMYL, CMP, LIPA, PHOS ####[place] [address]#### TRANSF ####[place] [address]184[address] Potassium molar conc 4.2 mmol/L Normal 3.5-5.0 [facility] Comment on above: Performed By: #### P T, PTT, AMYL, CMP, LIPA, PHOS ####[place] [address]#### TRANSF ####[place] [address]184[address] Protein 7.0 g/dL Normal 6.0-8.4 [facility] Comment on above: Performed By: #### P T, PTT, AMYL, CMP, LIPA, PHOS ####[address]#### TRANSF ####[address], [place] [phone] Sodium 132 mmol/L Low 135-146 [facility] Comment on above: Performed By: #### P T, PTT, AMYL, CMP, LIPA, PHOS ####[place] [address] [place], [place] [phone]#### TRANSF ####[facility] [place], [place] [phone] Urea nitrogen 9 mg/dL Low 10-25 [facility] Comment on above: Performed By: #### P T, PTT, AMYL, CMP, LIPA, PHOS ####[place] [address] [place], [place] [phone]#### TRANSF ####[address] [phone] HISTORY PHYSICALon HISTORY PHYSICAL HNO ID: [id number] thor: Michael Cedillo) AugustinService: General SurgeryAuthor Type: PhysicianType: HANDPFiled: 08/14/2017 11:20 PMNote Text:SURGICAL SERVICES INITIAL HANDPSERVICE DATE: 08/13/2017SERVICE TIME: 11:52 PMPRIMARY CARE PHYSICIAN: No primary care provider on file.SubjectiveHISTORY OF PRESENT ILLNESS: Mr. Jackson is a 62 year old male with PMH ofCAD s/p stent x2, type 2 DM on metformin, HTN, glaucoma, PSH ofcholecystectomy ) who was transferred from [facility].Patient reports symptoms of abdominal pain and [...] from the mass and he wastransferred to [facility] for further management.Of note he has an episode of bleeding duodenal ulcer for which he receivedmultiple blood transfusion.PAST MEDICAL HISTORYDiagnosis Date- Bleeding ulcer 11/15/2016 required 5 blood transfusions- Diabetes mellitus (HCC) 2016- Glaucoma- Hypertension- Myocardial infarction 05/15/2011PAST SURGICAL HISTORYProcedure Laterality Date- ANGIOPLASTY HX 05/15/2011 2 stents s/p GA;[facility]- [facility]CY[facility]Y 08[facility]11/2017 [facility]No family history on file.Social HistorySubstance Use [...] by mouth once daily. Disp: [facility]START ON 08/14/2017] pneumococcal vaccine 23 [...] Non labored breathing on RACARDIOVASCULAR: History of GA with stents on 162 aspirinGI: Vomiting and [...] 13, 2017 : 11:52 PM PAGER/CONTACT #: [id number] NOTEI have independently seen and examined the patient today. I haveindependently reviewed all the imaging and the labs. I agree with keycomponents of the resident's note above. Care plan and decision making hasbeen discussed.Patient with obstructing duodenal mass [facility] of abdominal painUnderwent lap richelle recentlySymptoms have been worse since surgeryAbd is soft and non peritonitic. RUQ tenderness noted. Drain with bileI have reviewed the CT.2 large collections and Duodenal mass. No liver or pulmonary metastasesTumor markersIR drain for abdominal fluid collection; these are likely bilomas givenCBD obstruction at the time of cholecystectomyEGD/ERCP for biliary stentNeeds Cassie Jolley MD, MPH, FACSGeneral/Trauma/HPB SurgeryPager: [phone] Cell: [phone] 2017 Normal [facility] Lipaseon 08-14-2017 Lipase 43 U/L Normal 12-70 [facility] Comment on above: Performed By: #### P T, PTT, AMYL, CMP, LIPA, PHOS ####[place] [id number] [place], [place] [phone]#### TRANSF ####[place] [address] [place], [place] [phone] Lipase 58 U/L Normal 12-70 [facility] Comment on above: Performed By: #### P T, PTT, AMYL, CMP, LIPA, PHOS ####[place] [phone]#### TRANSF ####[address] [phone] NURSING PROGon 08-14-2017 NURSING PROG HNO ID: [id number] thor: Kiley Wong RNService: (none)Author Type: Registered NurseType: Nursing Progress NoteFiled: 08/14/2017 6:27 PMNote Text: Nursing Progress NotePatient Name: Rocio JacksonMRN: [id number] Location: [place] [address]/[id number] ____Daily Note:1800-Patient reporting a significant increase in [...] colored fluid. Call placed to surgical services asst to notify, hewill be up to see the patient. Repositioned for comfort, no new orders atthis time.1809-Resident is in to see patient, orders to continue to monitor. Callplaced to CT to determine when patient will be taken down. Per aircraft ordnance technician thepatient is on the transport list and CT will be completed soon.is note was completed by: Kiley Wong RN [facility] NURSING PROG HNO ID: [id number] thor: Jacqueline (Rn) Jeremy, RNService: (none)Author Type: Registered NurseType: Nursing Progress NoteFiled: 08/13/2017 10:36 PMNote Text: Nursing Progress NotePatient Name: Rocio Boudreaux: [id number] Location: [place] [address]/[id number]-[id number] ____Transfer Note:Patient transferred into room/unit PK336 at 2145. Actions taken:Dressingaround pt ROMINA drain changed AND ROMINA emptied. Will follow up with orders andcontinue to monitor.This note was completed by: Jacqueline Luna RN [facility] NUTRITIONon 08-14-2017 NUTRITION HNO ID: [id number] thor: Alise Segura) BarsaService: Nutrition TherapyAuthor Type: [...] 87 kgResting Metabolic Rate: 1661Estimated kilocalorie needs: 5873-0713 kilocalories determined by 25-28kcal/kgEstimated protein needs:113 - [...] lb 9.6 oz) SpO2 93% BMI 29.28 kg/i2Ukqzer Labs 08/14/1803GLUC 147* -- 149*BUN 9* -- [...] assistance and weekends please page theGroup Pager -[phone] Normal [facility] Phosphoruson 08-14-2017 Phosphate 2.4 mg/dL Low 2.5-4.5 [facility] Comment on above: Performed By: #### P T, PTT, AMYL, CMP, LIPA, PHOS ####[facility] [place], [place] [phone]#### TRANSF ####[facility] [place], [place] [phone] Phosphate 2.3 mg/dL Low 2.5-4.5 [facility] Comment on above: Performed By: #### P T, PTT, AMYL, CMP, LIPA, PHOS ####[place] [phone]#### TRANSF ####[address] [phone] Phosphate 2.3 mg/dL Low 2.5-4.5 [facility] Comment on above: Performed By: #### P T, PTT, AMYL, CMP, LIPA, PHOS ####[place] [phone]#### TRANSF ####[place] [phone] Prealbuminon 08-14-2017 Prealbumin 7 mg/dL Low 17-36 [facility] Comment on above: Performed By: #### P T, PTT, AMYL, CMP, LIPA, PHOS ####[place] [phone]#### TRANSF ####[address] [phone] Protimeon 08-14-2017 INR Coag RelTime (Bld) 1.5 {INR} High 0.9-1.3 [facility] Comment on above: Result Comment: Tayler min K Antagonist (VKA) Therapeutic Range: INR 2 to 3 (Target INR of 2.5)Note: For patients treated with VKA drugs, such as warfarin, the [place] [employer] 2012 Guideline recommends [...] of 3).Keegan GH, et al. Chest 2012, 141:7S-47SNishkyraura RA, et al. [facility] 2017, 70: 252-289 Performed By: #### P T, PTT, AMYL, CMP, LIPA, PHOS ####[phone]#### TRANSF ####[place] [phone] PT Sec 14.9 sec High 9.7-13.0 [facility] Comment on above: Performed By: #### P T, PTT, AMYL, CMP, LIPA, PHOS ####[place] [phone]#### TRANSF ####[place] [phone] INR Coag RelTime (Bld) 1.5 {INR} High 0.9-1.3 [facility] Comment on above: Result Comment: Tayler min K Antagonist (VKA) Therapeutic Range: INR 2 to 3 (Target INR of 2.5)Note: For patients treated with VKA drugs, such as warfarin, the [place] [employer] 2012 Guideline recommends [...] al. Chest 2012, 141:7S-47SFelice CENTENO, et al. [facility] 2017, 70: 252-289 Performed By: #### P T, PTT, AMYL, CMP, LIPA, PHOS ####[place] [phone]#### TRANSF ####[address] [place] [phone] PT Sec 14.7 sec High 9.7-13.0 [facility] Comment on above: Performed By: #### P T, PTT, AMYL, CMP, LIPA, PHOS ####[place] [phone]#### TRANSF ####[phone] Transferrinon 08-14-2017 Transferrin 218 mg/dL Normal 200-360 [facility] Comment on above: Performed By: #### P T, PTT, AMYL, CMP, LIPA, PHOS ####[address]#### TRANSF ####[phone] Type and Screenon 08-14-2017 ABO/RH(D) Positive Normal [facility] Comment on above: Performed By: #### P T, PTT, AMYL, CMP, LIPA, PHOS ####[place] [address]#### TRANSF ####[place] [phone] Antibody Screen Negative Normal [facility] Comment on above: Performed By: #### P T, PTT, AMYL, CMP, LIPA, PHOS ####[address]10#### TRANSF ####[place] [phone] XR ABDOMEN 1V SUPINEon 08-14 XR ABDOMEN [...] excluded from view.IMPRESSION:NG TUBE EXTENDS TO THE STOMACH.Ditch Cleaner: NII Transcribe Date/Time: Aug 14 2017 7:37ADictated by : Elisa MOSCOSO examination was interpreted and the report reviewed and electronically signed by: SUSAN CORNEJO MD on Aug 14 2017 7:38AM [id number] [facility] XR CHEST 1V FRONTAL PORTon 0 [...] Partially obscured.Other:IMPRESSION:Lo w lung volumes with bibasilar atelectasis.Ditch Cleaner : NII Transcribe Date/Time: Aug 14 2017 7:38ADictated by : Elisa MOSCOSO examination was interpreted and the report reviewed and electronically signed by: SUSAN CORNEJO MD on Aug 14 2017 7:40AM [id number] [facility] HOSPon 08-13-2017 HOSP Patient:Coleen JacksonLizbeth RN: [...] LR infusion (D5-LR)heparin 5,000 Units injectionphenol 1 Evans (CHLORASEPTIC)metoprolol tartrate (short acting) 25 mg tab(s) [...] Signed Nursing Progress NotePatient Name: Rocio Boudreaux: [id number] Location: [address]36/WJ-NZ2A-49 ____Transfer Note:Patient transferred into room/unit PK336 at [...] DM on metformin, HTN, glaucoma, PSH of kvzzxtxxazgounl89/13/2018) who was transferred from OSH.Patient reports symptoms [...] from the mass and he was transferred [facility] for further management.Of note he has an episode of bleeding duodenal ulcer for which he receivedmultiple blood transfusion.PAST MEDICAL HISTORYDiagnosis Date- Bleeding ulcer 11/15/2016 required 5 blood transfusions- Diabetes mellitus (HCC) 2016- Glaucoma- Hypertension- Myocardial infarction 05/15/2011PAST SURGICAL HISTORYProcedure Laterality Date- ANGIOPLASTY HX 05/15/2011 2 stents s/p GA;[facility]- [facility]CY[facility]11/2017 [facility]No family history on file.Social HistorySubstance Use [...] Non labored breathing on RACARDIOVASCULAR: History of GA with stents on 162 aspirinGI: Vomiting and [...] due to malignancyPlans:- Admit under Dr Jolley- MARCELLOT for decompression to LIROD, KUB to confirm placement- ROMINA drain to [...] 13, 2017 : 11:52 PM PAGER/CONTACT #: [phone] NOTEI have independently seen and examined the patient today. I have independentlyreviewed all the imaging and the labs. I agree with figueroa components of theresident's note above. Care plan and decision making has been discussed.Patient with obstructing duodenal mass [facility] months of abdominal painUnderwent lap richelle recentlySymptoms have been worse since surgeryAbd is soft and non peritonitic. RUQ tenderness noted. Drain with bileI have reviewed the CT.2 large collections and Duodenal mass. No liver or pulmonary metastasesTumor markersIR drain for abdominal fluid collection; these are likely bilomas given CBDobstruction at the time of cholecystectomyEGD/ERCP for biliary stentNeeds TPNToms MD Froilan, MPH, FACSGeneral/Trauma/HPB SurgeryPager: [phone] Cell: [phone] 2017Previous VersionDenise Graham RT 08/14/2017 1:32 AM Signed Radiology Service Progress NotePATIENT NAME: Rocio JacksonMRN: [id number] OF SERVICE: August 14, 2017TIME: 1:32 AMPATIENT [...] 87 kgResting Metabolic Rate: 1661Estimated kilocalorie needs: 3155-8506 kilocalories determined by 25-28 kcal/kgEstimated protein needs:113 [...] lb 9.6 oz) SpO2 93% BMI 29.28 kg/e0Buudzv Labs 08/14/1803GLUC 147* -- 149*BUN 9* -- [...] assistance and weekends please page the GroupPager [phone] Stewart, RN, RN 08/14/2017 6:27 PM Signed Nursing Progress NotePatient Name: Rocio TorresdonnyMRN: [id number] Location: [place]-PK3C36/BX-TY5Q-86 ____Daily Note:1800-Patient reporting a significant increase in [...] tea coloredfluid. Call placed to surgical services asst to notify, he will be up to see thepatient. Repositioned for comfort, no new orders at this time.1809-Resident is in to see patient, orders to continue to monitor. Call placedto CT to determine when patient will be taken down. Per aircraft ordnance technician the patient is[place] the transport list and CT will be completed soon.is note was completed by: Radha Pacheco 08/14/2017 7:17 PM Signed Radiology Service Progress NotePATIENT NAME: Rocio Boudreaux: [id number] OF SERVICE: August 14, 2017TIME: 7:16 PMPATIENT IDENTITY VERIFICATION COMPLETED USING TWO (2) METHODS: Patientconfirmed name verbally and ID band matches..PATIENT GENDER DATA: MalePATIENT RELEVANT IMPLANT DATA REVIEWED: Not ApplicableCONTRAST INDUCED NEPHROPATHY RISK FACTORS: Patient age > 60 yearsCREATININE:CreatinineDa te Value Ref Range Kjjsmi1808/14/2017 0.61 (L) 0.70 - 1.40 mg/dL Final08/14/2017 0.63 (L) 0.70 - 1.40 mg/dL Final eGFR-All Other RacesDate Value Ref Range Wtnfgf9008/14/2017 >60 >60 . Final eGFR- AmericanDate Value Ref Range Lugamj9508/14/2017 >60 >60 Final P.O.C.T. RESULTS: POC done: [...] plan of care and management with the PA/FUELS SALES REPRESENTATIVE. I reviewed thePA/FUELS SALES REPRESENTATIVE's note and agree with the documented findings and plan of care.? ?Thank you for allowing us to participate in the care of this patient. Pleasecall with any questions or concerns.Lourdes Ferrari MDCedar Mill GastroenterologyPager [phone] --------CONSULT: [facility] Gastroenterology SERVICESERVICE DATE: 08/15/2017SERVICE TIME: 9:04 AMREASON FOR CONSULT: ERCPREQUESTING PHYSICIAN: Dr. [facility]leyM[facility]: No primary care provider on file.SubjectiveMr. Jackson is a 62 year old male with PMH of CAD s/p stent x2, type 2 DM onmetformin, HTN, glaucoma, PSH of cholecystectomy (08/11/2017, ERCP 08/13/17) [facility]as [facility] due to ulcerated mass possibleadenocarcinoma.The patient states that he had intermittent RUQ abdominal pain for sometime and became acutely worse. He subsequently underwent cholecystectomy [facility]. He had persistent pain and elevated LFT's following the richelle andunderwent ERCP on 08/13/17 which showed a duodenal mass and was biopsied. [facility]transfer[facility] for further [facility] and treatment. Following admissionpatient [...] 2.3, AST 285, ALT 370, and new nfqzqghthyaq97.53-->16.33.No t currently on antibiotics.FUNCTIONAL STATUS: IndependentPAST MEDICAL HISTORYDiagnosis Date- Bleeding ulcer 11/15/2016 required 5 blood transfusions- Diabetes mellitus (HCC) 2016- Glaucoma- Hypertension- Myocardial infarction 05/15/2011PAST SURGICAL HISTORYProcedure Laterality Date- ANGIOPLASTY HX 05/15/2011 2 stents s/p GA;[facility]- [facility]LECYST[facility]OMY 08/11/2017 [facility]No family history on file.Social HistorySubstance Use [...] by mouth once daily. Disp: Rfl: 08[facility]/2017[facility]00[facility]:oxyCODONE IR 5 mg tab(s) (ROXICODONE) [...] control as per primary service-Maintain NPO-IV Cipro front man for ERCP (ordered)D/w Dr. Nava and Dr. FerrariSIGNATURE: Gissell Serrato CNP PATIENT NAME: Rocio JacksonDATE: August 15, 2017 : 9:04 AM PAGER: [phone] M Beskid, RN, RN 08/15/2017 6:48 PM Addendum Nursing Progress NotePatient Name: Rocio JacksonMRN: [id number] Location: [facility]3C36/AK-JW7A-49 ____Daily Note:Pt phos level 2.2 - text [...] NUTRITION SUPPORT PROGRESS NOTEPATIENT NAME: Rocio JacksonMRN: [id number] OF : 1955DATE: 08/15/2017Nutritional Status: SEVERE PROTEIN [...] 87 kgResting Metabolic Rate: 1661Estimated kilocalorie needs: 8363-7255 kilocalories determined by 25-28 kcal/kgEstimated protein needs:113 [...] (192 lb 9.6 oz) SpO2 92% BMI29.28 kg/k1Dzgnkcv Weight: Weight: 87.4 kg (192 lb 9.6 [...] -- --CA 8.7 -- 8.5 8.9Recent Labs 022914DDFPXV 7*Accuchecks:Glucose, Point of Care (mg/dL)Date Value08/15/2017 141 (A)08/15/2017 154 (A)08/15/2017 138 (A)08/14/2017 148 (A)Alana Barber RD, LDPager: For further assistance and weekends please page the Group Qffai-[phone] :3Previous Constance Patel MD 08/15/2017 2:07 PM [...] Date- ANGIOPLASTY HX 05/15/2011 2 stents s/p GA;[facility]- [facility]CYST[facility]OMY 08/11/2017 [facility]Prior to [facility] medications as of 08/13/17 [...] 20 mg by mouth twice daily. 08/11/2017 og6011 Yesnitroglycerin sublingual (NITROSTAT) 0.4 mg SL tablet [...] August 15, 2017 : 2:05 PM PAGER: [phone] Rivero, RN, RN 08/15/2017 3:13 PM SignedAMBULATORY [...] instructionPATIENT / FAMILY RESPONSE: Verbalizes understanding of: ZGCZ-BOMVKTSVZATOZNVTDOBAT-H orrect actions to take to reduce post procedure complicationsPRE-PROCEDURE INSTRUCTIONS-Correct action to take to follow pre-procedureinstructionsFOL LOW-UP PLAN: Complete - No need for follow-upSUPPLEMENTAL MATERIAL: Title of written material: Abcess drain and SedationinformationREFERRAL (RECOMMENDATION): NoneElectronically Signed By: Dhara Rivero RN In Department: [address]Reji Patel MD 08/15/2017 2:46 PM SignedRadiology Brief [...] 15, 2017 : 2:45 PM PAGER/CONTACT #: [phone] Win Ct 08/15/2017 2:49 PM Signed Radiology Service Progress NotePATIENT NAME: Rocio JacksonMRN: [id number] OF SERVICE: August 15, 2017TIME: 2:48 PMPATIENT IDENTITY VERIFICATION COMPLETED USING TWO (2) METHODS: Patientconfirmed name verbally and ID band matches..PATIENT GENDER DATA: MalePATIENT RELEVANT IMPLANT DATA REVIEWED: Not ApplicableRADIOLOGY DEPARTMENT: CT; Exam(s) Completed: ABSCESS DRAINAGEPERIPHERAL IV DATA: Not applicableSIGNED BY: Jennifer Win [facility] 2017 2:48 PMAraul Duffy MD 08/15/2017 5:53 [...] MDFebruary 2017 5:53 PM(late entry)Kael Hernandez MD, 08/15/2017 7:29 PM SignedOKLAHOMA HOSPITAL ASSOCIATIONRAL SURGERY PROGRESS NOTENAME: Rocio JacksonMRN: [id number] 2017 7:20 PMASSESSMENT AND PLAN:Mr. Jackson is [...] tachycardic during the day. EKG revealed A-fib. Uniugcmv3e464 NSB, responded to bolus.IR drained 110cc dark serous fluid on 08/15- Continue pain control regimen- FEN/GI: NPO diet; mIVF- Abx: Cipro- Prophylaxis: DVT prophylaxis, IS, OOB, ambulate- Telemetry- PICC line placement- Nutrition consult for TPN- Dispo: ARLINE HERNANDEZ MDSt. Vincent'S [facility]ilton SurgeryPager: [phone]*On weekends or nights (after 1800) please contact the surgery front man pager.*SUBJECTIVE: No acute issues overnight and during the day. Resting comfortablyin bed.OBJECTIVE:BP 109/58 Pulse 78 Temp 36.3 ?C (97.4 ?F) (Oral) Resp 18 Ht 172.7 cm (5'8 ) Wt 87.4 kg (192 lb 9.6 oz) SpO2 94% BMI 29.28 kg/y1CYUJPCG: alert, NADLUNGS: breathing comfortablyCARDIAC: irregularABDOMEN: mildly TTP in upper abd, mildly distended, softEXTREMITIES: warm and well perfusedDRAINS/LINES: bilious drainage from JPDate 08/14/17 1500 - 08/15/17 0659 08/15/17 0700 - 08/16/17 0659Shift 9400-1644 8603-4203 24 Hour Total 0271-8406 4038-8454 1011-2403 24 HourTotalINTAKE PO 60 60 30 30 PO 60 60 30 30 IV 2018 2018 780 227 8807 NS 0.9% 2018 2018 095 018 9893 Irrigants 20 40 30 30 Irrigant/Flush Amount In (GI Feed/Drain 08/14/17 0109 Nasogastric Right Naris18 Fr) 20 40 30 30 Shift Total 2099 2119 744 665 1409OUTPUT Urine 575 1125 425 425 Void (ml) 575 1125 425 425 Tubes 008 840 5482 330 445 775 Drain/Tube Output (Drain/Tube [facility] Right LowerQuadrant Abdomen) 260 30 370 140 70 210 Drain/Tube Output (Drain/Tube 08/15/17 1530 Assessment Right Upper Abdomen)275 275 Output (GI Feed/Drain 08/14/17 0109 Nasogastric Right Naris 18 Fr) 170 7927363 190 100 290 # of BMs Number [...] 395*ALT 205* -- 370* -- 418*Deneen Navarro, FRANSICO, RN 08/16/2017 4:44 AM Addendum Nursing Progress NotePatient Name: Rocio Boudreaux: [id number] Location: [place] [address]/TZ-LH9Y-06 ____Daily Note:Late entry 21008/15 Labs drawn for start of heparin drip. INR 2.0Order to notify team when INR equal to or greater than 2.0.0350: Team notified that INR 2.0. Order to hold heparin drip until morning labsback with INR results. Will continue to monitor.0428: Text page to surgery for bladder scan of 665 ml and change in NG colorfrom bile to brownish ord4016: SROC up to see and assess pt. Continue to monitor bladder as pt is havingno symptoms of discomfort at this time. Wait to start heparin drip until Amlabs. Continue to monitor NG output.This note was completed by: Kaye May, RN, RN 08/16/2017 6:50 PM Signed Nursing Progress NotePatient Name: Rocio Boudreaux: [id number] Location: [facility]3C36/BF-SR5Y-43 ____Daily Note:729: SROC alpha paged re: PT/INR result 2.0 from morning lab work, heparin gttorder remains active, requesting clarification. A-fib on case monitor, DI201-380's.08: Call back recv'd, okay to start heparin [...] heparingtt and admin vitamin K. Spoke with [facility] for GI service, repeat PT/INR orderedfor 1200 [...] in bed.This note was completed by: Chacho Garcia, RN, RN 08/16/2017 8:05 AM SignedPICC/VASCULAR ACCESS PROGRESS NOTESERVICE DATE: 08/16/2017SERVICE TIME: 8:00 amPICC line ordered, heparin gtt currently on hold, plan for patient to receiveTPN, Double lumen chloraguard PICC recommended. Will continue to follow.SIGNATURE: Nolvia Vallejo RN PATIENT NAME: Rocio VizcarraTE: August 16, 2017 : 8:03 AM PAGER/CONTACT #: [phone] Song, RN, RN 08/16/2017 8:34 AM SignedPATIENT EDUCATION TOPIC: PROCEDURE / SURGERY: Procedure/Surgery: PICCinsertion under US guidancePATIENT NAME: Rocio JacksonMRN: [id number] LOCATION: [place] [address]READINES S TO LEARNCOGNITIVE ABILITY: Alert and orientedMOTIVATION TO LEARN: EagerInterestedFAMILY SUPPORT: High - Very involved in pt careINSTRUCTION PROVIDED TO: Patient and Family memberPATIENT LEARNS BEST BY: Individual InstructionVerbal InstructionFACTORS AFFECTING LEARNING: NonePHYSICAL LIMITATIONS AFFECTING LEARNING: NoneLEARNING RESPONSEDIAGNOSIS: ADULT: Duodenal obstructionPATIENT/FAMILY RESPONSE: Verbalizes understanding of: JURS-ZITLOLRAARECSTNXPRHPJ-K orrect actions to take to reduce post [...] 824Affirmation of Time Out: YESSign Out Discussion: CompletedLuis Shaffer RNCATHETER PLACEMENTBrand: Charan Lot: [id number] of Lumens: 2Type of PICC: Power Injectable [...] NoneCOMPLICATIONS: NonePatient Education Materials: Placed in chartThe [facility] Central Line Insertion checklist, attached to the CentralLine-Associated Bloodstream Infection Prevention Policy, was utilized duringthis procedure.QUESTIONS or PROBLEMS: Page [phone] weekendSIGNATURE: Luis Shaffer RN PATIENT NAME: Rocio JacksonDATE: August 16, 2017 : 8:35 AM PAGER/CONTACT PHONE:Khadar Duffy MD 08/16/2017 1:47 PM Addendum SURGERY INPATIENT PROGRESS NOTESName: Rocio JacksonMRN: [id number] and Plan:62 year old male with near-obstructing [...] lb 9.6 oz) SpO2 92% BMI 29.28 kg/w9Iuduib/Output Summary (Last 24 hours) at 08/16/17 0835Last [...] Please callwith any questions or concerns.Gissell Serrato [facility] GastroenterologyOffice: Cell: NqsikwLourdes Ferrari MD 08/16/2017 6:45 PM AddendWindom Area Hospital Gastroenterology Progress NoteSERVICE DATE: August 16, 2017SUBJECTIVENo abd pain, n/v, f/c. Afib overnight. Passing gas. No BM.OBJECTIVEMEDICATIONSCurre memorial hospital of rh[facility] medications:potassium phosphate 30 [...] INTRAVENOUS q 2 H PRNPE 421 753 819 157BP: 108/64 117/60 113/66Pulse: 92 (!) 128 92 96Resp: 18 16Temp: 36.9 ?C (98.4 ?F) 36.7 ?C (98 ?F) 37.4 ?C (99.3 ?F)TempSrc: Oral Oral OralSpO2: 92% 92% 95%Weight:Height:Body mass index is 29.28 kg/(m2).GENERAL: NAD, XDYn0ZSCHV: PERRLA, EOMI, normal OPCV: RRR, normal S1, [...] with any further questions or concerns.Lourdes Ferrari MDCedar Mill GastroenterologyPg#: [phone]: Lourdes Ferrari MD PATIENT NAME: Rocio JacksonDATE: August 16, 2017 : 2:42 PM PAGER: [phone] VersionRaveronique Mayorga MD 08/16/2017 4:39 PM AddendumCONSULT: CARDIOLOGY [...] 12.5 BIDPlan:Switch to metoprolol 25 TID.Monitor.CAD. Remote GA, PCI in 2013.No angina.Duodenal mass and obstructive jaundices/p perc drain placement.-plan is for ERCP with possible duodenal stent placement tomorrow.[facility] STAFF PHYSICIAN NOTE OF PERSONAL INVOLVEMENT IN [...] and updated the problem list as appropriate. Ritu personally performed a face to face assessment of the patient and havepersonally participated in the figueroa components. I have discussed the case andmanagement of the patient's care.STAFF PHYSICIAN: GAEL MccallumATE OF SERVICE: August 16, 2017TIME OF SERVICE: 4:36 PMCHIEF COMPLAINT: abdominal painRocio Jackson is a 62 year old male, [place] in [place]. Followed by aCardiologist in [place].History of CAD, GA s/p stent x2 in 2013, DM II, hypertension, glaucoma, recentcholecystectomy 08/11/2017, ERCP 08/13/17-showed multiple fluid collections andpartial duodenal obstruction due to ulcerated mass, possible adenocarcinoma.Subsequently transferred from [facility].-Worsening abdomina pain, leukocytosis. Followed by general [...] Date- ANGIOPLASTY HX 05/15/2011 2 stents s/p GA;[facility]- CHOLECYSTECTOMY 08/11/2017 [facility]- PICC LINE INSERT/CONSULT 08/16/2017Past Family History:non [...] 16, 2017 : 3:56 PM PAGER/CONTACT #:Previous VersionKhadar Duffy MD 08/17/2017 2:42 PM AddendumPROGRESS NOTES - SURGICAL SERVICESPATIENT NAME: Rocio Boudreaux: [id number] HISTORY OF PRESENT ILLNESS:No acute events overnight. [...] 87 kgResting Metabolic Rate: 1661Estimated kilocalorie needs: 6208-3047 kilocalories determined by 25-28 kcal/kgEstimated protein needs:113 - 130 grams determined by 1.3-1.5 g/kg DosingweightEstimated fluid needs: 2200 - 2400 milliliters based on 1 mL per kcalAdmission Weight: 87.4 kg (192 lb 9.6 oz)Current Weight: 87.4 kg (192 lb 9.6 oz)Body mass index is 29.28 kg/(m2). overweightALLERGIESNo Known AllergiesCurrent Facility-Administered Medications:phenol 1 Evans (CHLORASEPTIC) 1 Evans MUCOUS MEMBRANE (TOPICAL MOUTH AND THROAT) q2 [...] assistance and weekends please page the GroupPager [phone] R Bolla, MD 08/18/2017 10:29 PM SignedPROGRESS NOTE CARDIOLOGY SERVICESERVICE DATE: August 17, 2017SERVICE TIME: 12:48 PMASSESSMENT/PLANActive Problems:Atrial fibrillation. Persistent AF, ventricular rates +/- 100Heparin infusion is off. Inr was elevated, received vitamin K prior toprocedure. Today 1.0.s/p ERCP yesterdayPlan:Continue metoprolol.Spoke to surgical [employer] SALES REPRESENTATIVE Boubacar Espinoza. ->kimberley is for PTHC tomorrow.Will consider AC after procedure. ?Duodenal mass and obstructive jaundices/p perc drain placement.-s/p ERCP yesterday s/p dilatation. For stent placement tomorrow.As aboveContinue monitorThank you very much for allowing me to participate in this patient's care.Jessee Mayorga, ASHLEYUBJECTIVEINTERIM HISTORY: No chest pain or dyspnea. No [...] edema.PULSES: Peripheral pulses present.MEDICATIONS:Current Facility-Administered Medications:phenol 1 Evans (CHLORASEPTIC) 1 Evans MUCOUS MEMBRANE (TOPICAL MOUTH AND THROAT) q2 [...] Prior to Discharge: To Be DeterminedHealth Insurance: [facility]Living Arrangement: HomeLives With: 2 adult childrenFinancial Resources: N/APrimary Contact:Extended Emergency Contact InformationPrimary Emergency Contact: Bladimir Mullerress: [place], [place] [address]Lhsq Wcfyjase: SiblingSupportive: YesOther Important Patient Contacts: NoneCAREGIVER ASSESSMENT:Caregiver [...] days? NoHas the Patient Been in a Half-Way Facility in the Past 30 days? NoFREEDOM [...] 17, 2017 : 2:07 PM PAGER/CONTACT #: [phone] Zelin, MD 08/17/2017 3:21 PM SignedREGIONAL ANESTHESIOLOGY DAY OF SURGERY NOTEPATIENT NAME: Rocio Boudreaux: [id number]: 1955Procedure(s) (LRB):ERCP (N/A)Surgeon(s):Srinath NavaEstimated body mass index [...] Date- ANGIOPLASTY HX 05/15/2011 2 stents s/p GA;[facility]- CHOLECYSTECTOMY 08/11/2017 [facility]- PICC LINE INSERT/CONSULT 08/16/2017No family history on file.Social History:Social HistorySubstance Use Topics- Smoking status: Former Smoker Types: Cigarettes Quit date: 2010- Smokeless tobacco: Never Used- Alcohol use 1.5 oz/week 1 Cans of Beer (12oz) per week Comment: occasional beerNo current facility-administered medications on file prior to encounter.No current outpatient prescriptions on file prior to encounter.Inpatient medications reviewed in [facility].I have interviewed and examined the patient. I have reviewed the medical recordand/or the pre-anesthesia evaluation, pertinent labs, and test results.Significant changes in the patient's condition since the History and Physical,not otherwise documented in primary service progress notes: No[facility] information obtained within 48 [...] Medical Record dated 08/13/2017 and GIconsult notes..SIGNATURE: Srianth Nava MD PATIENT NAME: Rocio JacksonDATE: August [...] status.Further assessment by Anesthesia Service: NoneOther Remarks:SIGNATURE: Reab Valle MD PATIENT NAME: Rocio JacksonDATE: August 17, 2017 : 5:41 PM PAGER/CONTACT #:Khadar Duffy MD 08/18/2017 6:11 PM AddendumPROGRESS NOTES - SURGICAL SERVICESPATIENT NAME: Rocio TorresdonnyMRN: [id number] HISTORY OF PRESENT ILLNESS:No acute events overnight. [...] care: IS, EVERETT HERNANDEZ MD (Res)General SurgeryPager: [phone]*On weekends or nights (after 1800) please contact the surgery front man pager.*Attending: ERCP results noted. Unable to cannulate [...] (HumaLOG) SUBCUTANEOUS w MEALS AND HSphenol 1 Evans (CHLORASEPTIC) 1 Evans MUCOUS MEMBRANE (TOPICAL MOUTH AND THROAT) q2 [...] duodenal tube placement for feeding-continue to followMónica WeberKittson Memorial Hospital GastroenterologyThank you for allowing us to participate in the care of this patient. Pleasecall with questions or concerns.SIGNATURE: Linda Avalos CNP PATIENT NAME: Rocio JacksonDATE: August 18, 2017 : 1:20 PM PAGER: [phone] Barsa, RD, LD 08/18/2017 1:39 PM SignedNUTRITION THERAPY PROGRESS NOTESERVICE DATE: 08/18/2017SERVICE TIME: 1:24 PMRECOMMENDED DIAGNOSIS: SEVERE PROTEIN-CALORIE MALNUTRITION per RegisteredDietitian on 08/14NUTRITION CARE PLANIntervention:Diet NPOAdvance to clearsMonitor and Evaluation:Goal: Meet >75% of estimated needsMonitor fluid/electrolyte balanceMonitor labs, I/Os, vital signs, weightDischarge Nutrition Recommendations:To be sebjgyodqv27 year old male with a history notable [...] (HumaLOG) SUBCUTANEOUS w MEALS AND HSphenol 1 Evans (CHLORASEPTIC) 1 Evans MUCOUS MEMBRANE (TOPICAL MOUTH AND THROAT) q2 [...] assistance and weekends please page the GroupPager [phone] Berardi, RN, RN 08/18/2017 2:30 PM SignedMULTIDISCIPLINARY ROUNDSSERVICE DATE: 08/18/2017 ADMISSION DATE: 08/13/2017SERVICE TIME: 2:27 PM ANTICIPATED D/C DATE: 1-3 daysProblem List:ACTIVE PROBLEM LISTDuodenal ObstructionSevere Protein-Calorie Malnutrition (Hcc)Attendees Present at Rounds:Marble Rubber: Roderick Nurse: Laura Discussed on Rounds:Discharge NeedsPlan [...] BY: Alexandrea Tomas RN PATIENT NAME: Rocio ZackeryTE: August 18, 2017 : 2:27 PM CSN: [id number] Webster RN, RN 08/19/2017 3:24 AM Signed Nursing Progress NotePatient Name: Rocio JacksonMRN: [id number] Location: [place] [id number] ____ Pt with mild abd pain of 3 or less tonight. Tylenol controlling. Pt aware ifneeded may have pain pills. Accordian drain flushed at 2100 per order forpositive return of sterile NS and brown liquid.This note was completed by: Vipul Das RN, RN 08/19/2017 11:47 AM SignedPATIENT EDUCATION TOPIC: PROCEDURE / SURGERY: Procedure/Surgery: PTHCPATIENT NAME: Rocio Boudreaux: [id number] LOCATION: [place] [id number] S TO LEARNCOGNITIVE ABILITY: Alert and orientedMOTIVATION TO LEARN: EagerInterestedFAMILY SUPPORT: Unable to assess - Family not presentINSTRUCTION PROVIDED TO: PatientPATIENT LEARNS BEST BY: Individual InstructionWritten Instruction - Hand-outsVerbal InstructionFACTORS AFFECTING LEARNING: NonePHYSICAL LIMITATIONS AFFECTING LEARNING: NoneLEARNING RESPONSEDIAGNOSIS: ADULT: Duodenal massPATIENT/FAMILY RESPONSE: Verbalizes understanding of: [id number]-S orrect actions to take to reduce post [...] no rubs, murmurs, or gallopsProvisional Diagnosis/Treatment Plan: [facility] wGeneral AnesthesiaThis HANDP can be found in the attached.SIGNATURE: Vanessa Garcia MD PATIENT NAME: Rociomarisa JacksonDATE: August 19, 2017 : 12:47 PM PAGER: [phone] Lopez RD, LD 08/19/2017 2:22 PM SignedNUTRITION THERAPY REASSESSMENTSERVICE [...] 87 kgResting Metabolic Rate: 1661Estimated kilocalorie needs: 9134-2622 kilocalories determined by 25-28 kcal/kgEstimated protein needs:113 [...] kg (192 lb) SpO2 98% BMI 29.19 kg/u7[facility] GLUC 144*BUN 7*CREAT 0.58*NA 142K 3.4*CHLOR [...] 5,000 Units SUBCUTANEOUS q 8 Hphenol 1 Evans (CHLORASEPTIC) 1 Evans MUCOUS MEMBRANE (TOPICAL MOUTH AND THROAT) q2 [...] assistance and weekends please page the GroupPager -[phone] Tritle, MD 08/19/2017 2:57 PM SignedBRIEF OPERATIVE / PROCEDURE NOTESurgery/Procedure Date: 08/19/17Incision/Procedure Start Time:Incision Close/Procedure End Time:Surgeon(s)/Proceduralis t(s) and Machine Umbrella Tipper(s):Dusty Garcia - PrimaryProcedure(s): R PTHC and Int/Ext biliary drainAnesthesia: GeneralFindings: Mildly dilated IH ducts. NO filling defects. Severe D2-3 strictureEstimated Blood Loss: MinimalSpecimens: NoneComplications: NonePre-Op/Pre-Procedure Diagnosis: Duodenal massPost-Op/Post-Procedure Diagnosis: SameSIGNATURE: Vanessa Garcia MD PATIENT NAME: Rocio TorresdonnyDATE: August 19, 2017 : 2:56 PM PAGER/CONTACT #: Normal [facility] Vital Signs Date Time Vital Sign Value Performing Clinician Facility 07-15-2024 14:07-0500 Body temperature 97.3 [degF] Zahra May MD Work Phone: [facility] 07-15-2024 14:07-0500 Diastolic blood pressure 63 mm[Hg] Zahra May MD Work Phone: [facility] 07-15-2024 14:07-0500 Heart rate 85 /min Zahra May MD Work Phone: [facility] 07-15-2024 14:07-0500 Respiratory rate 18 /min Zahra May MD Work Phone: [facility] 07-15-2024 14:07-0500 SaO2% (BldA) [Mass fraction] 100 % Zahra May MD Work Phone: [facility] 07-15-2024 14:07-0500 Systolic blood pressure 94 mm[Hg] Zahra May MD Work Phone: [facility] 06-16-2024 14:52-0500 Diastolic blood pressure 48 mm[Hg] Zahra May MD Work Phone: [facility] Comment on above: recheck 06-16-2024 14:52-0500 Systolic blood pressure 78 mm[Hg] Zahra May MD Work Phone: [facility] Comment on above: recheck 06-16-2024 14:47-0500 Body height 170.8 cm Zahra May MD Work Phone: [facility] 06-16-2024 14:47-0500 Body temperature 97.2 [degF] Zahra May MD Work Phone: [facility] 06-16-2024 14:47-0500 Heart rate 49 /min Zahra May MD Work Phone: [facility] 06-16-2024 14:47-0500 Respiratory rate 16 /min Zahra May MD Work Phone: [facility] 06-16-2024 14:47-0500 SaO2% (BldA) [Mass fraction] 100 % Zahra May MD Work Phone: [facility] 05-06-2024 13:59-0500 Body height 166.37 cm [facility] 05-06-2024 13:59-0500 Body mass index (BMI) [Ratio] 22.7 kg/m2 [facility] 05-06-2024 13:59-0500 Body weight 63 kg [facility] 05-06-2024 13:59-0500 Diastolic blood pressure 66 mm[Hg] [facility] 05-06-2024 13:59-0500 Heart rate 89 /min [facility] 05-06-2024 13:59-0500 Systolic blood pressure 104 mm[Hg] [facility] 04-28-2024 14:52-0400 Body temperature 97 [degF] Ma Sand Work Phone: [facility] 04-28-2024 14:52-0400 Diastolic blood pressure 50 mm[Hg] Ma Sand Work Phone: [facility] 04-28-2024 14:52-0400 Heart rate 106 /min Ma Sand Work Phone: [facility] 04-28-2024 14:52-0400 Respiratory rate 18 /min Ma Sand Work Phone: [facility] 04-28-2024 14:52-0400 SaO2% (BldA) [Mass fraction] 98 % Ma Sand Work Phone: [facility] 04-28-2024 14:52-0400 Systolic blood pressure 78 mm[Hg] Ma Sand Work Phone: [facility] 03-10-2024 14:24-0400 Body temperature 97.7 [degF] Zahra May MD Work Phone: [facility] 03-10-2024 14:24-0400 Diastolic blood pressure 66 mm[Hg] Zahra May MD Work Phone: [facility] 03-10-2024 14:24-0400 Heart rate 79 /min Zahra May MD Work Phone: [facility] 03-10-2024 14:24-0400 Respiratory rate 16 /min Zahra May MD Work Phone: [facility] 03-10-2024 14:24-0400 SaO2% (BldA) [Mass fraction] 98 % Zahra May MD Work Phone: [facility] 03-10-2024 14:24-0400 Systolic blood pressure 98 mm[Hg] Zahra May MD Work Phone: [facility] 03-03-2024 13:12-0400 Diastolic blood pressure 66 mm[Hg] Ma Sand Work Phone: [facility] 03-03-2024 13:12-0400 Heart rate 80 /min Ma Sand Work Phone: [facility] 03-03-2024 13:12-0400 Respiratory rate 20 /min Ma Sand Work Phone: [facility] 03-03-2024 13:12-0400 SaO2% (BldA) [Mass fraction] 97 % Ma Sand Work Phone: [facility] 03-03-2024 13:12-0400 Systolic blood pressure 95 mm[Hg] Ma Sand Work Phone: [facility] 01-29-2024 15:18-0400 Body temperature 97.7 [degF] Ma Sand Work Phone: [facility] 01-29-2024 15:18-0400 Diastolic blood pressure 65 mm[Hg] Ma Sand Work Phone: [facility] 01-29-2024 15:18-0400 Heart rate 108 /min Ma Sand Work Phone: [facility] 01-29-2024 15:18-0400 Respiratory rate 16 /min Ma Sand Work Phone: [facility] 01-29-2024 15:18-0400 SaO2% (BldA) [Mass fraction] 98 % Ma Sand Work Phone: [facility] 01-29-2024 15:18-0400 Systolic blood pressure 99 mm[Hg] Ma Sand Work Phone: [facility] 01-08-2024 15:25-0400 Body temperature 97.59 [degF] Ma Sand Work Phone: [facility] 01-08-2024 15:25-0400 Diastolic blood pressure 68 mm[Hg] Ma Sand Work Phone: [facility] 01-08-2024 15:25-0400 Heart rate 88 /min Ma Sand Work Phone: [facility] 01-08-2024 15:25-0400 Respiratory rate 16 /min Ma Sand Work Phone: [facility] 01-08-2024 15:25-0400 SaO2% (BldA) [Mass fraction] 97 % Ma Sand Work Phone: [facility] 01-08-2024 15:25-0400 Systolic blood pressure 101 mm[Hg] Ma Sand Work Phone: [facility] 12-24-2023 14:07-0400 Body height 166.37 cm [facility] 12-24-2023 14:07-0400 Body mass index (BMI) [Ratio] 23.1 kg/m2 [facility] 12-24-2023 14:07-0400 Body weight 63.95 kg [facility] 12-24-2023 14:07-0400 Diastolic blood pressure 66 mm[Hg] [facility] 12-24-2023 14:07-0400 Heart rate 76 /min [facility] 12-24-2023 14:07-0400 Systolic blood pressure 101 mm[Hg] [facility] 12-03-2023 15:01-0400 Body temperature 97.11 [degF] Zahra May MD Work Phone: [facility] 12-03-2023 15:01-0400 Diastolic blood pressure 66 mm[Hg] Zahra May MD Work Phone: [facility] 12-03-2023 15:01-0400 Heart rate 96 /min Zahra May MD Work Phone: [facility] 12-03-2023 15:01-0400 Respiratory rate 18 /min Zarha May MD Work Phone: [facility] 12-03-2023 15:01-0400 SaO2% (BldA) [Mass fraction] 98 % Zahra May MD Work Phone: [facility] 12-03-2023 15:01-0400 Systolic blood pressure 102 mm[Hg] Zahra May MD Work Phone: [facility] 11-27-2023 13:38-0400 Body height 166.37 cm [facility] 11-27-2023 13:38-0400 Body mass index (BMI) [Ratio] 23.1 kg/m2 [facility] 11-27-2023 13:38-0400 Body weight 63.95 kg [facility] 11-27-2023 13:38-0400 Diastolic blood pressure 63 mm[Hg] [facility] 11-27-2023 13:38-0400 Heart rate 92 /min [facility] 11-27-2023 13:38-0400 Systolic blood pressure 98 mm[Hg] [facility] 11-05-2023 14:25-0400 Body temperature 97.3 [degF] Ma Sand Work Phone: [facility] 11-05-2023 14:25-0400 Diastolic blood pressure 64 mm[Hg] Ma Sand Work Phone: [facility] 11-05-2023 14:25-0400 Heart rate 95 /min Ma Sand Work Phone: [facility] 11-05-2023 14:25-0400 Respiratory rate 18 /min Ma Sand Work Phone: [facility] 11-05-2023 14:25-0400 SaO2% (BldA) [Mass fraction] 99 % Ma Sand Work Phone: [facility] 11-05-2023 14:25-0400 Systolic blood pressure 100 mm[Hg] Ma Sand Work Phone: [facility] 10-29-2023 14:36-0400 Body height 172.7 cm Irving Abreu DO Work Phone: [facility] 10-29-2023 14:36-0400 Body mass index (BMI) [Ratio] 21.44 kg/m2 Irving Abreu DO Work Phone: [facility] 10-29-2023 14:36-0400 Body weight 63.96 kg Irving Abreu DO Work Phone: [facility] Comment on above: unable say he weight in 141 10-29-2023 14:36-0400 Diastolic blood pressure 80 mm[Hg] Irving Abreu DO Work Phone: [facility] 10-29-2023 14:36-0400 Heart rate 84 /min Irving Abreu DO Work Phone: [facility] 10-29-2023 14:36-0400 Systolic blood pressure 120 mm[Hg] Irving Abreu DO Work Phone: [facility] 10-08-2023 14:54-0400 Body temperature 97.39 [degF] Ma Sand Work Phone: [facility] 10-08-2023 14:54-0400 Diastolic blood pressure 53 mm[Hg] Ma Sand Work Phone: [facility] 10-08-2023 14:54-0400 Heart rate 76 /min Ma Sand Work Phone: [facility] 10-08-2023 14:54-0400 Respiratory rate 18 /min Ma Sand Work Phone: [facility] 10-08-2023 14:54-0400 SaO2% (BldA) [Mass fraction] 98 % Ma Sand Work Phone: [facility] 10-08-2023 14:54-0400 Systolic blood pressure 95 mm[Hg] Ma Sand Work Phone: [facility] 09-11-2023 13:59-0400 Body height 166.37 cm DO Rick Rivass Work Phone: [facility] 09-11-2023 13:59-0400 Body mass index (BMI) [Ratio] 22.9 kg/m2 DO Rick Rivass Work Phone: [facility] 09-11-2023 13:59-0400 Body weight 63.5 kg DO Rick Rivass Work Phone: [facility] 09-11-2023 13:59-0400 Diastolic blood pressure 68 mm[Hg] DO Rick Rivass Work Phone: [facility] 09-11-2023 13:59-0400 Heart rate 80 /min DO Rick Rivass Work Phone: [facility] 09-11-2023 13:59-0400 SaO2% (BldA) [Mass fraction] 99 % DO Rick Rivass Work Phone: [facility] 09-11-2023 13:59-0400 Systolic blood pressure 99 mm[Hg] DO Rick Rivass Work Phone: [facility] 09-10-2023 13:55-0400 Body height 170.8 cm Zahra May MD Work Phone: [facility] 09-10-2023 13:55-0400 Body temperature 97.11 [degF] Zahra May MD Work Phone: [facility] 09-10-2023 13:55-0400 Diastolic blood pressure 69 mm[Hg] Zahra May MD Work Phone: [facility] 09-10-2023 13:55-0400 Heart rate 83 /min Zahra May MD Work Phone: [facility] 09-10-2023 13:55-0400 Respiratory rate 16 /min Zahra May MD Work Phone: [facility] 09-10-2023 13:55-0400 SaO2% (BldA) [Mass fraction] 97 % Zahra May MD Work Phone: [facility] 09-10-2023 13:55-0400 Systolic blood pressure 113 mm[Hg] Zahra May MD Work Phone: [facility] 08-27-2023 14:03-0500 Body height 166.37 cm DO Rick Zapata Work Phone: [facility] 08-27-2023 14:03-0500 Body mass index (BMI) [Ratio] 22.9 kg/m2 DO Rick Rivass Work Phone: [facility] 08-27-2023 14:03-0500 Body weight 63.5 kg DO Rick Rivass Work Phone: [facility] 08-27-2023 14:03-0500 Diastolic blood pressure 71 mm[Hg] DO Rick Brennanillis Work Phone: [facility] 08-27-2023 14:03-0500 Heart rate 96 /min DO Rick Brennanillis Work Phone: [facility] 08-27-2023 14:03-0500 SaO2% (BldA) [Mass fraction] 99 % DO Rick Brennanillis Work Phone: [facility] 08-27-2023 14:03-0500 Systolic blood pressure 114 mm[Hg] DO Rick Brennanillis Work Phone: [facility] 06-04-2023 13:30-0500 Body height 168.91 cm David Caputo Other [employer] [facility] [employer] Other 06-04-2023 13:30-0500 Body mass index (BMI) [Ratio] 20.67 kg/m2 David Caputo Other [facility] [employer] Other 06-04-2023 13:30-0500 Body weight 58.97 kg David Caputo Other [employer] [facility] [employer] Other 06-04-2023 13:30-0500 Diastolic blood pressure 63 mm[Hg] David Caputo Other [employer] [facility] [employer] Other 06-04-2023 13:30-0500 Systolic blood pressure 99 mm[Hg] David Caputo Other [employer] Other 04-09-2023 14:57-0400 Body height 170.8 cm Ma Sand Work Phone: [facility] 04-09-2023 14:57-0400 Body temperature 97.39 [degF] Ma Sand Work Phone: [facility] 04-09-2023 14:57-0400 Body weight 50.8 kg Ma Sand Work Phone: [facility] 04-09-2023 14:57-0400 Diastolic blood pressure 66 mm[Hg] Ma Sand Work Phone: [facility] 04-09-2023 14:57-0400 Heart rate 93 /min Ma Sand Work Phone: [facility] 04-09-2023 14:57-0400 Respiratory rate 16 /min Ma Sand Work Phone: [facility] 04-09-2023 14:57-0400 SaO2% (BldA) [Mass fraction] 97 % Ma Sand Work Phone: [facility] 04-09-2023 14:57-0400 Systolic blood pressure 108 mm[Hg] Ma Sand Work Phone: [facility] 03-11-2023 10:36-0400 Body height 170.8 cm Zahra May MD Work Phone: [facility] 03-11-2023 10:36-0400 Body temperature 97.39 [degF] Zahra May MD Work Phone: [facility] 03-11-2023 10:36-0400 Diastolic blood pressure 81 mm[Hg] Zahra May MD Work Phone: [facility] 03-11-2023 10:36-0400 Heart rate 83 /min Zahra May MD Work Phone: [facility] 03-11-2023 10:36-0400 Respiratory rate 18 /min Zahra May MD Work Phone: [facility] 03-11-2023 10:36-0400 SaO2% (BldA) [Mass fraction] 100 % Zahra May MD Work Phone: [facility] 03-11-2023 10:36-0400 Systolic blood pressure 118 mm[Hg] Zahra May MD Work Phone: [facility] 03-05-2023 14:30-0400 Body height 168.91 cm David Caputo Other [facility] Other 03-05-2023 14:30-0400 Body mass index (BMI) [Ratio] 20.67 kg/m2 David Caputo Other [facility] Other 03-05-2023 14:30-0400 Body weight 58.97 kg David Caputo Other [facility] Other 03-05-2023 14:30-0400 Diastolic blood pressure 66 mm[Hg] David Caputo Other [facility] Other 03-05-2023 14:30-0400 Systolic blood pressure 107 mm[Hg] David Bolton [facility] [employer] Other 02-19-2023 15:22-0400 Body temperature 97.5 [degF] Zahra May MD Work Phone: [facility] 02-19-2023 15:22-0400 Body weight 50.8 kg Zahra May MD Work Phone: [facility] 02-19-2023 15:22-0400 Diastolic blood pressure 63 mm[Hg] Zahra May MD Work Phone: [facility] 02-19-2023 15:22-0400 Heart rate 98 /min Zahra May MD Work Phone: [facility] 02-19-2023 15:22-0400 Respiratory rate 18 /min Zahra May MD Work Phone: [facility] 02-19-2023 15:22-0400 SaO2% (BldA) [Mass fraction] 97 % Zahra May MD Work Phone: [facility] 02-19-2023 15:22-0400 Systolic blood pressure 98 mm[Hg] Zahra May MD Work Phone: [facility] 02-12-2023 08:05-0400 PAIN LEVEL 0 {score} Dr. Adriane Mccoy [facility] 02-12-2023 04:59-0400 PAIN LEVEL 0 {score} Dr. Adriane Mccoy [facility] 02-12-2023 04:01-0400 Body temperature 98.8 [degF] Dr. Adriane Mccoy [facility] 02-12-2023 04:01-0400 Diastolic blood pressure 72 mm[Hg] Dr. Adriane Espitia [facility] 02-12-2023 04:01-0400 Heart rate 87 /min Dr. Adriane Mccoy [facility] 02-12-2023 04:01-0400 Respiratory rate 17 /min Dr. Adriane Mccoy [facility] 02-12-2023 04:01-0400 Systolic blood pressure 114 mm[Hg[facility] 16:27-0400 Body temperature 98.5 [degF] Dr. Adriane Mccoy [facility] 02-11-2023 16:27-0400 Diastolic blood pressure 72 mm[Hg] Dr. Adriane Espitia [facility] 02-11-2023 16:27-0400 Heart rate 74 /min Dr. Adriane Mccoy [facility] 02-11-2023 16:27-0400 Respiratory rate 16 /[facility] 02-11-2023 16:27-0400 Systolic blood pressure 113 mm[Hg] Dr. Adriane Espitia [facility] 02-11-2023 08:28-0400 PAIN LEVEL 0 {score} Dr. Adriane Mccoy [facility] 02-11-2023 05:16-0400 PAIN LEVEL 0 {score} Dr. Adriane Mccoy [facility] 02-11-2023 01:47-0400 Body temperature 98.2 [degF] Dr. Adriane Mccoy [facility] 02-11-2023 01:47-0400 Diastolic blood pressure 76 mm[Hg] Dr. Adriane Espitia [facility] 02-11-2023 01:47-0400 Heart rate 80 /min Dr. Adriane Mccoy [facility] 02-11-2023 01:47-0400 Respiratory rate 17 /min Dr. Adriane Mccoy [facility] 02-11-2023 01:47-0400 Systolic blood pressure 110 mm[Hg[facility]-10-2023 16:22-0400 Body temperature 98.5 [degF] Dr. Adriane Mccoy [facility] 02-10-2023 16:22-0400 Diastolic blood pressure 73 mm[Hg[facility]-10-2023 16:22-0400 Heart rate 73 /min Dr. Adriaen Mccoy [facility] 02-10-2023 16:22-0400 Respiratory rate 20 /[facility] 02-10-2023 16:22-0400 Systolic blood pressure 110 mm[Hg] Dr. Adriane Espitia [facility] 02-10-2023 08:58-0400 PAIN LEVEL 0 {score} Dr. Adriane Mccoy [facility] 02-10-2023 03:21-0400 Body temperature 98.5 [degF] Dr. Adriane Mccoy [facility] 02-10-2023 03:21-0400 Diastolic blood pressure 67 mm[Hg] Dr. Adriane Espitia [facility] 02-10-2023 03:21-0400 Heart rate 76 /min Dr. Adriane Mccoy [facility] 02-10-2023 03:21-0400 Respiratory rate 17 /min Dr. Adriane Mccoy [facility] 02-10-2023 03:21-0400 Systolic blood pressure 104 mm[Hg] [facility] 02:32-0400 PAIN LEVEL 0 {score} Dr. Adriane Mccoy [facility] 02-09-2023 19:58-0400 PAIN LEVEL 1 {score} Dr. Adriane Mccoy [facility] 02-09-2023 18:46-0400 PAIN LEVEL 3 {score} Dr. Adriane Mccoy [facility] 02-09-2023 16:19-0400 Body temperature 98.8 [degF] Dr. Adriane Mccoy [facility] 02-09-2023 16:19-0400 Diastolic blood pressure 71 mm[Hg] Dr. Adriane Espitia [facility] 02-09-2023 16:19-0400 Heart rate 81 /[facility]-2023 16:19-0400 Respiratory rate 18 /min Dr. Adriane Mccoy [facility] 02-09-2023 16:19-0400 Systolic blood pressure 113 mm[Hg] Dr. Adriane Espitia [facility] 02-09-2023 08:24-0400 PAIN LEVEL 0 {score} Dr. Adriane Mccoy [facility] 02-09-2023 02:56-0400 PAIN LEVEL 0 {score} Dr. Adriane Mccoy [facility] 02-08-2023 19:51-0400 Body temperature 97.4 [degF] Dr. Adriane Mccoy [facility] 02-08-2023 19:51-0400 Diastolic blood pressure 77 mm[Hg] [facility]-08-2023 19:51-0400 Heart rate 79 /min Dr. Adriane Mccoy [facility] 02-08-2023 19:51-0400 Respiratory rate 16 /min Dr. Adriane Mccoy [facility] 02-08-2023 19:51-0400 Systolic blood pressure 117 mm[Hg] [facility] 02-08-2023 13:37-0400 Body weight 60.[address] Adriane Mccoy [facility] 02-08-2023 08:24-0400 PAIN LEVEL 0 {score} [facility]-07-2023 17:47-0400 Body temperature 97.5 [degF] Dr. Adriane Mccoy [facility] 02-07-2023 17:47-0400 Diastolic blood pressure 68 mm[Hg] [facility]-07-2023 17:47-0400 Heart rate 83 /min Dr. Adriane Mccoy [facility] 02-07-2023 17:47-0400 Respiratory rate 20 /min Dr. Adriane Mccoy [facility] 02-07-2023 17:47-0400 Systolic blood pressure 119 mm[Hg] Dr. Adriane Espitia [facility] 02-07-2023 13:59-0400 Body temperature 98.1 [degF] Dr. Adriane Mccoy [facility] 02-07-2023 13:59-0400 Diastolic blood pressure 87 mm[Hg] [facility] 02-07-2023 13:59-0400 Heart rate 77 /min Dr. Adriane Mccoy [facility] 02-07-2023 13:59-0400 Respiratory rate 20 /min Dr. Adriane Mccoy [facility] 02-07-2023 13:59-0400 Systolic blood pressure 146 mm[Hg] [facility] 02-07-2023 08:51-0400 PAIN LEVEL 0 {score} Dr. Adriane Mccoy [facility] 02-07-2023 05:11-0400 Body temperature 98 [degF] Dr. Adriane Lunamir [facility] 02-07-2023 05:11-0400 Diastolic blood pressure 72 mm[Hg] [facility] 02-07-2023 05:11-0400 Heart rate 70 /min Dr. Adriane Mccoy [facility] 02-07-2023 05:11-0400 Respiratory rate 16 /min Dr. Adriane Espitia [facility] 02-07-2023 05:11-0400 Systolic blood pressure 112 mm[Hg] [facility] 02-07-2023 01:10-0400 PAIN LEVEL 0 {score} Dr. Adriane Mccoy [facility] 02-06-2023 18:12-0400 Body temperature 98.2 [degF] Dr. Adriane Mccoy [facility] 02-06-2023 18:12-0400 Diastolic blood pressure 74 mm[Hg] [facility] 02-06-2023 18:12-0400 Heart rate 72 /[facility]-06-2023 18:12-0400 Respiratory rate 17 /[facility] 02-06-2023 18:12-0400 Systolic blood pressure 116 mm[Hg] [facility] 02-06-2023 17:16-0400 PAIN LEVEL 0 {score} Dr. Adriane Mccoy [facility] 02-06-2023 09:10-0400 PAIN LEVEL 0 {score} Dr. Adriane Espitia [facility] 02-06-2023 03:23-0400 PAIN LEVEL 0 {score} [facility]-06-2023 01:40-0400 Body temperature 98.7 [degF] Dr. Adriane Mccoy [facility] 02-06-2023 01:40-0400 Diastolic blood pressure 73 mm[Hg] Dr. Adriane Espitia [facility] 02-06-2023 01:40-0400 Heart rate 83 /[facility] 02-06-2023 01:40-0400 Respiratory rate 16 /min Dr. Adriane Mccoy [facility] 02-06-2023 01:40-0400 Systolic blood pressure 121 mm[Hg] Dr. Adriane Espitia [facility] 02-05-2023 18:38-0400 Body temperature 99 [degF] Dr. Adriane Mccoy [facility] 02-05-2023 18:38-0400 Diastolic blood pressure 67 mm[Hg] Dr. Adriane Espitia [facility] 02-05-2023 18:38-0400 Heart rate 81 /[facility] 02-05-2023 18:38-0400 Respiratory rate 18 /min Dr. Adriane Mccoy [facility] 02-05-2023 18:38-0400 Systolic blood pressure 105 mm[Hg] Dr. Adriane Espitia [facility] 02-05-2023 14:45-0400 Body temperature 97.6 [degF] Dr. Adriane Espitia [facility] 02-05-2023 14:45-0400 Diastolic blood pressure 65 mm[Hg] Dr. Adriane Espitia [facility] 02-05-2023 14:45-0400 Heart rate 64 /[facility] 02-05-2023 14:45-0400 Respiratory rate 16 /min Dr. Adriane Espitia [facility] 02-05-2023 14:45-0400 Systolic blood pressure 96 mm[Hg] Dr. Adriane Espitia [facility] 02-05-2023 08:13-0400 PAIN LEVEL 0 {score} Dr. Adriane Mccoy [facility] 02-05-2023 08:11-0400 PAIN LEVEL 0 {score} [facility] 02-05-2023 05:35-0400 Body temperature 97.5 [degF] Dr. Adriane Lunamir [facility] 02-05-2023 05:35-0400 Diastolic blood pressure 71 mm[Hg] Dr. Adriane Espitia [facility] 02-05-2023 05:35-0400 Heart rate 73 /min Dr. Adriane Espitia [facility] 02-05-2023 05:35-0400 Respiratory rate 17 /[facility] 02-05-2023 05:35-0400 Systolic blood pressure 109 mm[Hg] Dr. Adriane Espitia [facility] 02-05-2023 03:14-0400 PAIN LEVEL 3 {score} Dr. Adriane Espitia [facility] 02-05-2023 02:33-0400 PAIN LEVEL 2 {score} Dr. Adriane Espitia [facility] 02-04-2023 08:52-0400 PAIN LEVEL 0 {score} [facility]-04-2023 01:24-0400 Body temperature 98.6 [degF] [facility] 02-04-2023 01:24-0400 Diastolic blood pressure 66 mm[Hg] Dr. Adriane Espitia [facility] 02-04-2023 01:24-0400 Heart rate 81 /[facility] 02-04-2023 01:24-0400 Respiratory rate 17 /min [facility] 02-04-2023 01:24-0400 Systolic blood pressure 106 mm[Hg] Dr. Adriane sEpitia [facility] 02-03-2023 16:05-0400 Body temperature 98.4 [degF] Dr. Adriane Lunamir [facility] 02-03-2023 16:05-0400 Diastolic blood pressure 82 mm[Hg] Dr. Adriane Espitia [facility] 02-03-2023 16:05-0400 Heart rate 82 /min Dr. Adriane Mccoy [facility] 02-03-2023 16:05-0400 Respiratory rate 17 /min Dr. Adriane Espitia [facility] 02-03-2023 16:05-0400 Systolic blood pressure 123 mm[Hg] Dr. Adriane Espitia [facility] 02-03-2023 08:39-0400 PAIN LEVEL 0 {score} [facility] 02-03-2023 00:36-0400 Oxygen saturation in Blood 95 % Dr. Adriane Espitia [facility] 02-03-2023 00:34-0400 Diastolic blood pressure 71 mm[Hg] Dr. Adriane Espitia [facility] 02-03-2023 00:34-0400 Systolic blood pressure 113 mm[Hg] Dr. Adriane Espitia [facility] 02-03-2023 00:33-0400 Respiratory rate 17 /min Dr. Adriane Espitia [facility] 02-03-2023 00:30-0400 Heart rate 62 /min Dr. Adriane Espitia [facility] 02-03-2023 00:29-0400 Body temperature 98.3 [degF] Dr. Adriane Mccoy [facility] 02-02-2023 23:38-0400 PAIN LEVEL 0 {score} Dr. Adriane Mccoy [facility] 02-02-2023 15:55-0400 Body temperature 97.4 [degF] Dr. Adriane Mccoy [facility] 02-02-2023 15:55-0400 Diastolic blood pressure 68 mm[Hg] Dr. Adirane Mccoy [facility] 02-02-2023 15:55-0400 Heart rate 80 /min Dr. Adriane Mccoy [facility] 02-02-2023 15:55-0400 Respiratory rate 16 /min Dr. Adriane Mccoy [facility] 02-02-2023 15:55-0400 Systolic blood pressure 105 mm[Hg] Dr. Adriane Espitia [facility] 02-02-2023 12:21-0400 Body temperature 97.6 [degF] Dr. Adriane Mccoy [facility] 02-02-2023 12:21-0400 Diastolic blood pressure 81 mm[Hg] Dr. Adriane Espitia [facility] 02-02-2023 12:21-0400 Heart rate 81 /min Dr. Adriane Mccoy [facility] 02-02-2023 12:21-0400 Respiratory rate 16 /[facility] 02-02-2023 12:21-0400 Systolic blood pressure 131 mm[Hg] Dr. Adriane Espitia [facility] 02-02-2023 08:10-0400 PAIN LEVEL 0 {score} Dr. Adriane Mccoy [facility] 02-02-2023 02:12-0400 Body temperature 98.1 [degF] Dr. Adriane Mccoy [facility] 02-02-2023 02:12-0400 Diastolic blood pressure 70 mm[Hg] [facility] 02-02-2023 02:12-0400 Heart rate 71 /min Dr. Adriane Mccoy [facility] 02-02-2023 02:12-0400 Respiratory rate 18 /min Dr. Adriane Mccoy [facility] 02-02-2023 02:12-0400 Systolic blood pressure 112 mm[Hg] Dr. Adriane Espitia [facility] 02-02-2023 00:43-0400 PAIN LEVEL 0 {score} Dr. Adriane Mccoy [facility] 02-01-2023 22:14-0400 Oxygen saturation in Blood 94 % Dr. Adriane Espitia [facility] 02-01-2023 22:11-0400 Oxygen saturation in Blood 94 % Dr. Adriane Espitia [facility] 02-01-2023 17:18-0400 PAIN LEVEL 0 {score} Dr. Adriane Mccoy [facility] 02-01-2023 15:46-0400 Body temperature 98.3 [degF] Dr. Adriane Mccoy [facility] 02-01-2023 15:46-0400 Diastolic blood pressure 70 mm[Hg] Dr. Adriane Espitia [facility] 02-01-2023 15:46-0400 Heart rate 70 /min Dr. Adriane Mccoy [facility] 02-01-2023 15:46-0400 Respiratory rate 19 /min Dr. Adriane Lunamir [facility] 02-01-2023 15:46-0400 Systolic blood pressure 109 mm[Hg] Dr. Adriane Espitia [facility] 02-01-2023 14:56-0400 Body weight 65.[address] [facility] 02-01-2023 14:36-0400 Body temperature 98.4 [degF] Dr. Adriane Mccoy [facility] 02-01-2023 14:36-0400 Diastolic blood pressure 80 mm[Hg] Dr. Adriane Espitia [facility] 02-01-2023 14:36-0400 Heart rate 70 /[facility] 02-01-2023 14:36-0400 Respiratory rate 18 /[facility] 02-01-2023 14:36-0400 Systolic blood pressure 135 mm[Hg] Dr. Adriane Espitia [facility] 02-01-2023 14:26-0400 Body weight 65.[address] [facility] 02-01-2023 09:47-0400 PAIN LEVEL 0 {score} Dr. Adriane Lunamir [facility] 02-01-2023 05:16-0400 Body temperature 97.6 [degF] Dr. Adriane Mccoy [facility] 02-01-2023 05:16-0400 Diastolic blood pressure 71 mm[Hg] Dr. Adriane Espitia [facility] 02-01-2023 05:16-0400 Heart rate 75 /min Dr. Adriane Mccoy [facility] 02-01-2023 05:16-0400 Respiratory rate 18 /min Dr. Adriane Mccoy [facility] 02-01-2023 05:16-0400 Systolic blood pressure 117 mm[Hg] Dr. Adriane Espitia [facility] 01-31-2023 16:00-0400 Body temperature 98.1 [degF] Dr. Adriane Mccoy [facility] 01-31-2023 16:00-0400 Diastolic blood pressure 71 mm[Hg] Dr. Adriane Espitia [facility] 01-31-2023 16:00-0400 Heart rate 76 /[facility] 01-31-2023 16:00-0400 Respiratory rate 17 /[facility] 01-31-2023 16:00-0400 Systolic blood pressure 109 mm[Hg] Dr. Adriane Espitia [facility] 01-31-2023 08:45-0400 PAIN LEVEL 0 {score} Dr. Adriane Mccoy [facility] 01-30-2023 08:08-0400 PAIN LEVEL 0 {score} [facility] 01-30-2023 01:17-0400 Body temperature 99 [degF] Dr. Adriane Mccoy [facility] 01-30-2023 01:17-0400 Diastolic blood pressure 76 mm[Hg] Dr. Adriane Espitia [facility] 01-30-2023 01:17-0400 Heart rate 86 /min Dr. Adriane Mccoy [facility] 01-30-2023 01:17-0400 Respiratory rate 17 /min Dr. Adriane Mccoy [facility] 01-30-2023 01:17-0400 Systolic blood pressure 127 mm[Hg] Dr. Adriane Espitia [facility] 01-29-2023 18:43-0400 Body temperature 97.1 [degF] Dr. Adriane Mccoy [facility] 01-29-2023 18:43-0400 Diastolic blood pressure 74 mm[Hg] Dr. Adriane Espitia [facility] 01-29-2023 18:43-0400 Heart rate 84 /[facility] 01-29-2023 18:43-0400 Respiratory rate 17 /min Dr. Adriane Espitia [facility] 01-29-2023 18:43-0400 Systolic blood pressure 128 mm[Hg] Dr. Adriane Espitia [facility] 01-29-2023 13:51-0400 Body temperature 98.5 [degF] Dr. Adriane Mccoy [facility] 01-29-2023 13:51-0400 Diastolic blood pressure 76 mm[Hg] Dr. Adriane Espitia [facility] 01-29-2023 13:51-0400 Heart rate 74 /min Dr. Adriane Mccoy [facility] 08-03-2023 13:51-0400 Respiratory rate 17 /min Dr. Adriane Mccoy [facility] 01-29-2023 13:51-0400 Systolic blood pressure 130 mm[Hg] [facility] 01-29-2023 08:20-0400 PAIN LEVEL 0 {score} Dr. Adriane Mccoy [facility] 01-29-2023 05:12-0400 PAIN LEVEL 0 {score} Dr. Adriane Mccoy [facility] 01-29-2023 01:28-0400 Body temperature 98.1 [degF] Dr. Adriane Mccoy [facility] 01-29-2023 01:28-0400 Diastolic blood pressure 74 mm[Hg] Dr. Adriane Espitia [facility] 01-29-2023 01:28-0400 Heart rate 72 /[facility] 01-29-2023 01:28-0400 Respiratory rate 16 /[facility] 01-29-2023 01:28-0400 Systolic blood pressure 127 mm[Hg] Dr. Adriane Espitia [facility] 01-28-2023 19:25-0400 Body temperature 98.2 [degF] Dr. Adriane Mccoy [facility] 01-28-2023 19:25-0400 Diastolic blood pressure 75 mm[Hg] [facility] 01-28-2023 19:25-0400 Heart rate 75 /[facility] 01-28-2023 19:25-0400 Respiratory rate 17 /min Dr. Adriane Mccoy [facility] 01-28-2023 19:25-0400 Systolic blood pressure 121 mm[Hg] [facility] 01-28-2023 11:56-0400 Body temperature 97.4 [degF] Dr. Adriane Mccoy [facility] 01-28-2023 11:56-0400 Diastolic blood pressure 80 mm[Hg] Dr. Adriane Espitia [facility] 01-28-2023 11:56-0400 Heart rate 88 /min Dr. Adriane Mccoy [facility] 01-28-2023 11:56-0400 Respiratory rate 21 /min Dr. Adriane Mccoy [facility] 01-28-2023 11:56-0400 Systolic blood pressure 124 mm[Hg] Dr. Adriane Espitia [facility] 01-28-2023 08:31-0400 PAIN LEVEL 0 {score} [facility] 01-28-2023 04:36-0400 PAIN LEVEL 0 {score} Dr. Adriane Mccoy [facility] 01-28-2023 03:39-0400 Body temperature 98.3 [degF] Dr. Adriane Mccoy [facility] 01-28-2023 03:39-0400 Diastolic blood pressure 70 mm[Hg] Dr. Adriane Espitia [facility] 01-28-2023 03:39-0400 Heart rate 81 /[facility] 01-28-2023 03:39-0400 Respiratory rate 16 /min Dr. Adriane Mccoy [facility] 01-28-2023 03:39-0400 Systolic blood pressure 120 mm[Hg] [facility] 01-27-2023 16:03-0400 Body temperature 98.5 [degF] Dr. Adriane Mccoy [facility] 01-27-2023 16:03-0400 Diastolic blood pressure 58 mm[Hg] [facility] 01-27-2023 16:03-0400 Heart rate 77 /min Dr. Adriane Mccoy [facility] 01-27-2023 16:03-0400 Respiratory rate 17 /min Dr. Adriane Mccoy [facility] 01-27-2023 16:03-0400 Systolic blood pressure 113 mm[Hg] Dr. Adriane Espitia [facility] 01-27-2023 12:20-0400 Body temperature 98.1 [degF] Dr. Adriane Mccoy [facility] 01-27-2023 12:20-0400 Diastolic blood pressure 71 mm[Hg] Dr. Adriane Lunamir [facility] 01-27-2023 12:20-0400 Heart rate 84 /min Dr. Adriane Mccoy [facility] 01-27-2023 12:20-0400 Respiratory rate 19 /min Dr. Adriane Mccoy [facility] 01-27-2023 12:20-0400 Systolic blood pressure 121 mm[Hg] Dr. Adriane Espitia [facility] 01-27-2023 11:45-0400 Body weight 64.[address] [facility] 01-27-2023 08:25-0400 PAIN LEVEL 0 {score} [facility] 01-27-2023 03:46-0400 Body temperature 98.4 [degF] [facility] 01-27-2023 03:46-0400 Diastolic blood pressure 74 mm[Hg] Dr. Adriane Espitia [facility] 01-27-2023 03:46-0400 Heart rate 76 /min Dr. Adriane Mccoy [facility] 01-27-2023 03:46-0400 Respiratory rate 16 /[facility] 01-27-2023 03:46-0400 Systolic blood pressure 115 mm[Hg] Dr. Adriane Espitia [facility] 01-26-2023 23:42-0400 PAIN LEVEL 0 {score} Dr. Adriane Mccoy [facility] 01-26-2023 15:51-0400 Body temperature 98.3 [degF] Dr. Adriane Mccoy [facility] 01-26-2023 15:51-0400 Diastolic blood pressure 73 mm[Hg] Dr. Adriane Espitia [facility] 01-26-2023 15:51-0400 Heart rate 80 /[facility] 01-26-2023 15:51-0400 Respiratory rate 19 /min Dr. Adriane Espitia [facility] 01-26-2023 15:51-0400 Systolic blood pressure 115 mm[Hg] [facility] 01-26-2023 08:18-0400 PAIN LEVEL 0 {score} Dr. Adriane Mccoy [facility] 01-25-2023 22:35-0400 Body weight 63.[address] Adriane Mccoy [facility] 01-25-2023 19:57-0400 Body weight 63.[address] Adriane Mccoy [facility] 01-25-2023 16:56-0400 Body temperature 97.6 [degF] Dr. Adriane Mccoy [facility] 01-25-2023 16:56-0400 Diastolic blood pressure 72 mm[Hg] [facility] 01-25-2023 16:56-0400 Heart rate 75 /min Dr. Adriane Mccoy [facility] 01-25-2023 16:56-0400 Oxygen saturation in Blood 95 % Dr. Adriane Espitia [facility] 01-25-2023 16:56-0400 Respiratory rate 18 /min Dr. Adriane Mccoy [facility] 01-25-2023 16:56-0400 Systolic blood pressure 130 mm[Hg] Dr. Adriane Espitia [facility] 01-25-2023 11:33-0400 Body temperature 97.1 [degF] Dr. Adriane Mccoy [facility] 01-25-2023 11:33-0400 Diastolic blood pressure 81 mm[Hg] [facility] 01-25-2023 11:33-0400 Heart rate 71 /min Dr. Adriane Mccoy [facility] 01-25-2023 11:33-0400 Respiratory rate 16 /min Dr. Adriane Mccoy [facility] 01-25-2023 11:33-0400 Systolic blood pressure 133 mm[Hg] Dr. Adriane Espitia [facility] 01-25-2023 08:43-0400 PAIN LEVEL 0 {score} Dr. Adriane Lunamir [facility] 01-24-2023 19:59-0400 Body weight 63.[address] Adriane Mccoy [facility] 01-24-2023 17:41-0400 Body temperature 97.1 [degF] Dr. Adriane Mccoy [facility] 01-24-2023 17:41-0400 Diastolic blood pressure 73 mm[Hg] Dr. Adriane Espitia [facility] 01-24-2023 17:41-0400 Heart rate 60 /[facility] 01-24-2023 17:41-0400 Oxygen saturation in Blood 97 % Dr. Adriane Espitia [facility] 01-24-2023 17:41-0400 Respiratory rate 20 /[facility] 01-24-2023 17:41-0400 Systolic blood pressure 141 mm[Hg] [facility] 01-24-2023 13:57-0400 Body weight 65.[address] Adriane Mccoy [facility] 01-24-2023 12:35-0400 Body temperature 98.6 [degF] Dr. Adriane Mccoy [facility] 01-24-2023 12:35-0400 Diastolic blood pressure 72 mm[Hg] [facility] 01-24-2023 12:35-0400 Heart rate 71 /min Dr. Adriane Mccoy [facility] 01-24-2023 12:35-0400 Respiratory rate 17 /[facility] 01-24-2023 12:35-0400 Systolic blood pressure 131 mm[Hg] [facility] 01-24-2023 08:31-0400 PAIN LEVEL 0 {score} Dr. Adriane Mccoy [facility] 01-24-2023 01:01-0400 Body temperature 97.5 [degF] [facility] 01-24-2023 01:01-0400 Diastolic blood pressure 73 mm[Hg] Dr. Adriane Espitia [facility] 01-24-2023 01:01-0400 Heart rate 61 /[facility] 01:01-0400 Respiratory rate 16 /[facility] 01:01-0400 Systolic blood pressure 119 mm[Hg] Dr. Adriane Espitia [facility] 01-23-2023 23:11-0400 PAIN LEVEL 0 {score} Dr. Adriane Mccoy [facility] 01-23-2023 19:27-0400 Body weight [facility] [facility] 01-23-2023 18:03-0400 PAIN LEVEL 0 {score} Dr. Adriane Mccoy [facility] 01-23-2023 17:38-0400 Oxygen saturation in Blood 96 % Dr. Adriane Espitia [facility] 01-23-2023 17:38-0400 PAIN LEVEL 0 {score} Dr. Adriane Mccoy [facility] 01-23-2023 16:19-0400 Body temperature 97.6 [degF] Dr. Adriane Mccoy [facility] 01-23-2023 16:19-0400 Diastolic blood pressure 73 mm[Hg] Dr. Adriane Espitia [facility] 01-23-2023 16:19-0400 Heart rate 70 /min Dr. Adriane Espitia [facility] 01-23-2023 16:19-0400 Respiratory rate 16 /min Dr. Adriane Espitia [facility] 01-23-2023 16:19-0400 Systolic blood pressure 119 mm[Hg] Dr. Adriane Espitia [facility] 01-01-2023 14:30-0400 Body height 168.91 cm David Caputo Other [employer] Other 01-01-2023 14:30-0400 Body mass index (BMI) [Ratio] 20.67 kg/m2 David Caputo Other [employer] Other 01-01-2023 14:30-0400 Body weight 58.97 kg David Caputo Other [employer] Other 01-01-2023 14:30-0400 Diastolic blood pressure 59 mm[Hg] David Caputo Other [employer] Other 01-01-2023 14:30-0400 Systolic blood pressure 87 mm[Hg] David Caputo Other [employer] Other 12-26-2022 16:02-0400 Body temperature 97.9 [degF] Ma Reamaze Work Phone: [facility] 12-26-2022 16:02-0400 Diastolic blood pressure 58 mm[Hg] Ma Sand Work Phone: [facility] 12-26-2022 16:02-0400 Heart rate 76 /min Ma Sand Work Phone: [facility] 12-26-2022 16:02-0400 Respiratory rate 16 /min Ma Reamaze Work Phone: [facility] 12-26-2022 16:02-0400 SaO2% (BldA) [Mass fraction] 100 % Ma Reamaze Work Phone: [facility] 12-26-2022 16:02-0400 Systolic blood pressure 89 mm[Hg] Ma Reamaze Work Phone: [facility] 12-04-2022 14:30-0400 Body height 168.91 cm David Caputo Other [employer] Other 12-04-2022 14:30-0400 Body mass index (BMI) [Ratio] 20.67 kg/m2 David Caputo Other [employer] Other 12-04-2022 14:30-0400 Body weight 58.97 kg David Caputo Other [employer] Other 12-04-2022 14:30-0400 Diastolic blood pressure 68 mm[Hg] David Caputo Other [employer] Other 12-04-2022 14:30-0400 SaO2% (BldA) [Mass fraction] 93 % David Caputo Other [employer] Other 12-04-2022 14:30-0400 Systolic blood pressure 109 mm[Hg] David Caputo Other [employer] Other 11-28-2022 15:14-0400 Body height 170.8 cm Zahra May MD Work Phone: [facility] 11-28-2022 15:14-0400 Body temperature 97.2 [degF] Zahra May MD Work Phone: [facility] 11-28-2022 15:14-0400 Diastolic blood pressure 63 mm[Hg] Zahra May MD Work Phone: [facility] 11-28-2022 15:14-0400 Heart rate 74 /min Zahra May MD Work Phone: [facility] 11-28-2022 15:14-0400 Respiratory rate 18 /min Zahra May MD Work Phone: [facility] 11-28-2022 15:14-0400 SaO2% (BldA) [Mass fraction] 98 % Zahra May MD Work Phone: [facility] 11-28-2022 15:14-0400 Systolic blood pressure 92 mm[Hg] Zahra May MD Work Phone: [facility] 10-31-2022 15:31-0400 Body height 170.8 cm Ma Sand Work Phone: [facility] 10-31-2022 15:31-0400 Body temperature 97.59 [degF] Ma Sand Work Phone: [facility] 10-31-2022 15:31-0400 Body weight 64.41 kg Ma Sand Work Phone: [facility] 10-31-2022 15:31-0400 Diastolic blood pressure 63 mm[Hg] Ma Sand Work Phone: [facility] 10-31-2022 15:31-0400 Heart rate 73 /min Ma Sand Work Phone: [facility] 10-31-2022 15:31-0400 Respiratory rate 16 /min Ma Sand Work Phone: [facility] 10-31-2022 15:31-0400 SaO2% (BldA) [Mass fraction] 98 % Ma Sand Work Phone: [facility] 10-31-2022 15:31-0400 Systolic blood pressure 115 mm[Hg] Ma Sand Work Phone: [facility] 09-05-2022 14:17-0500 Body temperature 97.5 [degF] Ma Sand Work Phone: [facility] 09-05-2022 14:17-0500 Diastolic blood pressure 67 mm[Hg] Ma Sand Work Phone: [facility] 09-05-2022 14:17-0500 Heart rate 65 /min Ma Sand Work Phone: [facility] 09-05-2022 14:17-0500 Respiratory rate 18 /min Ma Sand Work Phone: [facility] 09-05-2022 14:17-0500 SaO2% (BldA) [Mass fraction] 97 % Ma Sand Work Phone: [facility] 09-05-2022 14:17-0500 Systolic blood pressure 119 mm[Hg] Ma Sand Work Phone: [facility] 08-08-2022 14:39-0500 Body temperature 97.9 [degF] Zahra May MD Work Phone: [facility] 08-08-2022 14:39-0500 Body weight 64.41 kg Zahra May MD Work Phone: [facility] 08-08-2022 14:39-0500 Diastolic blood pressure 76 mm[Hg] Zahra May MD Work Phone: [facility] 08-08-2022 14:39-0500 Heart rate 88 /min Zahra May MD Work Phone: [facility] 08-08-2022 14:39-0500 Respiratory rate 40 /min Zahra May MD Work Phone: [facility] 08-08-2022 14:39-0500 SaO2% (BldA) [Mass fraction] 94 % Zahra May MD Work Phone: [facility] 08-08-2022 14:39-0500 Systolic blood pressure 111 mm[Hg] Zahra May MD Work Phone: [facility] 07-17-2022 15:45-0500 Body height 168.91 cm David Caputo Other [employer] Other 07-17-2022 15:45-0500 Body mass index (BMI) [Ratio] 22.57 kg/m2 David Caputo Other [employer] Other 07-17-2022 15:45-0500 Body weight 64.41 kg David Caputo Other [employer] Other 07-17-2022 15:45-0500 Diastolic blood pressure 58 mm[Hg] David Caputo Other [employer] Other 07-17-2022 15:45-0500 SaO2% (BldA) [Mass fraction] 99 % David Caputo Other [employer] Other 07-17-2022 15:45-0500 Systolic blood pressure 102 mm[Hg] David Caputo Other [employer] Other 07-03-2022 13:55-0500 Body height 170.8 cm Zahra May MD Work Phone: [facility] 07-03-2022 13:55-0500 Body temperature 97.39 [degF] Zahra May MD Work Phone: [facility] 07-03-2022 13:55-0500 Body weight 67.31 kg Zahra May MD Work Phone: [facility] 07-03-2022 13:55-0500 Diastolic blood pressure 82 mm[Hg] Zahra May MD Work Phone: [facility] 07-03-2022 13:55-0500 Heart rate 77 /min Zahra May MD Work Phone: [facility] 07-03-2022 13:55-0500 Respiratory rate 16 /min Zahra May MD Work Phone: [facility] 07-03-2022 13:55-0500 SaO2% (BldA) [Mass fraction] 100 % Zahra May MD Work Phone: [facility] 07-03-2022 13:55-0500 Systolic blood pressure 126 mm[Hg] Zahra May MD Work Phone: [facility] 06-06-2022 13:32-0500 Body height 170.8 cm Zahra May MD Work Phone: [facility] 06-06-2022 13:32-0500 Body temperature 97.11 [degF] Zahra May MD Work Phone: [facility] 06-06-2022 13:32-0500 Body weight 65.77 kg Zahra May MD Work Phone: [facility] 06-06-2022 13:32-0500 Diastolic blood pressure 60 mm[Hg] Zahra May MD Work Phone: [facility] 06-06-2022 13:32-0500 Heart rate 66 /min Zahra May MD Work Phone: [facility] 06-06-2022 13:32-0500 Respiratory rate 24 /min Zahra May MD Work Phone: [facility] 06-06-2022 13:32-0500 SaO2% (BldA) [Mass fraction] 100 % Zahra May MD Work Phone: [facility] 06-06-2022 13:32-0500 Systolic blood pressure 109 mm[Hg] Zahra May MD Work Phone: [facility] 05-08-2022 13:45-0500 Body height 170.8 cm Zahra May MD Work Phone: [facility] 05-08-2022 13:45-0500 Body temperature 97.81 [degF] Zahra May MD Work Phone: [facility] 05-08-2022 13:45-0500 Body weight 62.41 kg Zahra May MD Work Phone: [facility] 05-08-2022 13:45-0500 Diastolic blood pressure 58 mm[Hg] Zahra May MD Work Phone: [facility] 05-08-2022 13:45-0500 Heart rate 63 /min Zahra May MD Work Phone: [facility] 05-08-2022 13:45-0500 Respiratory rate 16 /min Zahra May MD Work Phone: [facility] 05-08-2022 13:45-0500 SaO2% (BldA) [Mass fraction] 97 % Zahar May MD Work Phone: [facility] 05-08-2022 13:45-0500 Systolic blood pressure 102 mm[Hg] Zahra May MD Work Phone: [facility] 04-10-2022 12:47-0400 Body height 170.8 cm Zahra May MD Work Phone: [facility] 04-10-2022 12:47-0400 Body temperature 97.7 [degF] Zahra May MD Work Phone: [facility] 04-10-2022 12:47-0400 Body weight 66.04 kg Zahra May MD Work Phone: [facility] 04-10-2022 12:47-0400 Diastolic blood pressure 70 mm[Hg] Zahra May MD Work Phone: [facility] 04-10-2022 12:47-0400 Heart rate 60 /min Zahra May MD Work Phone: [facility] 04-10-2022 12:47-0400 Respiratory rate 16 /min Zahra May MD Work Phone: [facility] 04-10-2022 12:47-0400 SaO2% (BldA) [Mass fraction] 99 % Zahra May MD Work Phone: [facility] 04-10-2022 12:47-0400 Systolic blood pressure 125 mm[Hg] Zahra May MD Work Phone: [facility] 03-13-2022 12:57-0400 Body height 170.8 cm Rola Gordon APRN.LUMBER TAILER Work Phone: [facility] 03-13-2022 12:57-0400 Body temperature 97.11 [degF] Rola Gordon APRN.LUMBER TAILER Work Phone: [facility] 03-13-2022 12:57-0400 Body weight 65.77 kg Rola Gordon APRN.LUMBER TAILER Work Phone: [facility] 03-13-2022 12:57-0400 Diastolic blood pressure 68 mm[Hg] Rola Gordon APRN.LUMBER TAILER Work Phone: [facility] 03-13-2022 12:57-0400 Heart rate 74 /min Rola Gordon APRN.LUMBER TAILER Work Phone: [facility] 03-13-2022 12:57-0400 Respiratory rate 20 /min Rola Gordon APRN.LUMBER TAILER Work Phone: [facility] 03-13-2022 12:57-0400 SaO2% (BldA) [Mass fraction] 100 % Rola Gordon 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LUMBER TAILER Work Phone: [facility] 03-13-2022 12:57-0400 Systolic blood pressure 119 mm[Hg] Rola Gordon 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LUMBER TAILER Work Phone: [facility] 02-13-2022 14:09-0400 Body height 170.8 cm Zahra May MD Work Phone: [facility] 02-13-2022 14:09-0400 Body temperature 97.81 [degF] Zahra May MD Work Phone: [facility] 02-13-2022 14:09-0400 Body weight 65.14 kg Zahra May MD Work Phone: [facility] 02-13-2022 14:09-0400 Diastolic blood pressure 74 mm[Hg] Zahra May MD Work Phone: [facility] 02-13-2022 14:09-0400 Heart rate 62 /min Zahra May MD Work Phone: [facility] 02-13-2022 14:09-0400 Respiratory rate 16 /min Zahra May MD Work Phone: [facility] 02-13-2022 14:09-0400 SaO2% (BldA) [Mass fraction] 95 % Zahra May MD Work Phone: [facility] 02-13-2022 14:09-0400 Systolic blood pressure 108 mm[Hg] Zahra May MD Work Phone: [facility] 02-04-2022 13:50-0400 63.6 1 David Caputo Work Phone: [facility] 250 DO Work Phone: Comment on above: [facility] 01-16-2022 14:00-0400 Body height 172.72 cm Nate Margie Other [facility] [employer] Other 01-16-2022 14:00-0400 Body mass index (BMI) [Ratio] 21.28 kg/m2 Nate Margie Other [facility] [employer] Other 01-16-2022 14:00-0400 Body weight 63.5 kg Nate Margie Other [facility] [employer] Other 12-05-2021 14:57-0400 Body height 170.8 cm Zahra May MD Work Phone: [facility] 12-05-2021 14:57-0400 Body temperature 97.39 [degF] Zahra May MD Work Phone: [facility] 12-05-2021 14:57-0400 Body weight 73.48 kg Zahra May MD Work Phone: [facility] 12-05-2021 14:57-0400 Diastolic blood pressure 85 mm[Hg] Zahra May MD Work Phone: [facility] 12-05-2021 14:57-0400 Heart rate 80 /min Zahra May MD Work Phone: [facility] 12-05-2021 14:57-0400 Respiratory rate 16 /min Zahra May MD Work Phone: [facility] 12-05-2021 14:57-0400 SaO2% (BldA) [Mass fraction] 97 % Zahra May MD Work Phone: [facility] 12-05-2021 14:57-0400 Systolic blood pressure 123 mm[Hg] Zahra May MD Work Phone: [facility] Encounters Encounter Date Encounter Type Care Provider Facility Start: 07-15-2024 End: 07-15-2024 Nursing evaluation of patient and report Melani Hart Work Phone: Hematology/Oncology Comment on above: 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); Adenocarcinoma (HCC); Abnormal weight loss; Macrocytosis Start: 07-15-2024 End: 07-15-2024 ambulatory DAVID CAPUTO Facility:[facility] Start: 07-15-2024 End: 07-15-2024 Office outpatient visit 25 minutes Zahra May MD Work Phone: Hematology/Oncology Comment on above: Small bowel cancer ( HCC) (Primary Dx); Abnormal finding of diagnostic imaging; Leukopenia, unspecified type Start: 07-01-2024 End: 07-01-2024 [facility] ZAHRA MAY Facility:[facility] Start: 07-01-2024 End: 07-01-2024 Subsequent hospital visit by physician Arrival Time Radiology Work Phone: Radiology [facility] Comment on above: 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] Start: 06-16-2024 End: 06-16-2024 ambulatory ZAHRA MAY Facility:[facility] Start: 06-16-2024 End: 06-16-2024 Office outpatient visit 40 minutes Zahra May MD Work Phone: Hematology/Oncology Comment on above: 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); Adenocarcinoma (HCC); Iron deficiency anemia secondary to inadequate dietary iron intake; Gastrointestinal hemorrhage associated with duodenitis Start: 06-09-2024 End: 06-09-2024 ambulatory DAVID CAPUTO Facility:[facility] Start: 06-09-2024 End: 06-09-2024 Subsequent hospital visit by physician Arrival Time Radiology Work Phone: Radiology [facility] Comment on above: 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] Start: 06-01-2024 End: 06-01-2024 ambulatory Imelda Reynolds [facility] Work Phone: [facility] Start: 06-01-2024 End: 06-01-2024 E-mail encounter from caregiver Imelda Reynolds [facility] Work Phone: [facility] Start: 06-01-2024 Emergency department patient visit JUSTIN ZAPATA [facility] Start: 05-30-2024 Evaluation and manag ement of inpatient FLORENTINO [facility] Start: 05-30-2024 Evaluation and manag ement of inpatient [facility] Start: 05-30-2024 Evaluation and manag ement of inpatient FLORENTINO [facility] Start: 05-29-2024 Evaluation and manag ement of inpatient [facility] Start: 05-27-2024 Emergency department patient visit [facility] Start: 05-27-2024 Emergency department patient visit [facility] Start: 05-27-2024 Emergency department patient visit [facility] Start: 05-27-2024 End: 05-31-2024 Evaluation and management of inpatient JUSTIN [facility] Start: 05-06-2024 End: 05-06-2024 ambulatory [facility] Work Phone: Start: 05-06-2024 End: 05-06-2024 Patient encounter procedure [facility] Work Phone: Start: 04-29-2024 Non-patient / Non-visit [facility] Work Phone: Start: 04-28-2024 End: 04-28-2024 ambulatory DAVID CAPUTO Facility:[facility] Start: 04-28-2024 End: 04-28-2024 Nursing evaluation of patient and report Ma Nurse Zelalem Hart Work Phone: Hematology/Oncology Comment on above: 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); Adenocarcinoma (HCC); Abnormal weight loss; Macrocytosis Start: 03-31-2024 End: 03-31-2024 [facility] Facility:[facility] Start: 03-31-2024 End: 04-05-2024 Nursing evaluation of patient and report Melani Hart Work Phone: Hematology/Oncology Comment on above: 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); Adenocarcinoma (HCC); Abnormal weight loss; Macrocytosis Refill Request Start: 03-10-2024 End: 03-10-2024 [facility] Facility:[facility] Start: 03-10-2024 End: 03-10-2024 Office outpatient visit [...] loss; Macrocytosis Start: 03-03-2024 Non-patient / Non-visit [facility] Work Phone: Start: 03-03-2024 End: 03-04-2024 [facility] Facility:[facility] Start: 03-03-2024 End: 03-03-2024 Subsequent hospital visit by physician Arrival Time Radiology Work Phone: Radiology Pet CT Comment on above: Iron deficiency anem ia secondary to inadequate dietary iron intake [D50.8] Start: 01-29-2024 End: 02-01-2024 [facility] Facility:[facility] Start: 01-29-2024 End: 01-29-2024 Nursing evaluation of patient and report Melani Hart Work Phone: Hematology/Oncology Comment on above: 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); Adenocarcinoma (HCC); Abnormal weight loss; Macrocytosis Start: 01-08-2024 End: 01-08-2024 ambulatory ZAHRA ABLUCYJUNAR Facility:[facility] Start: 01-08-2024 End: 01-08-2024 Nursing evaluation of patient and report Melani Hart Work Phone: Hematology/Oncology Comment on above: 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); Adenocarcinoma (HCC); Abnormal weight loss; Macrocytosis Start: 12-24-2023 End: 12-24-2023 ambulatory [facility] Work Phone: Start: 12-24-2023 End: 12-24-2023 Patient encounter procedure [facility] Work Phone: Start: 12-03-2023 End: 12-03-2023 [...] deficiency type Start: 12-03-2023 Non-patient / Non-visit [facility] Work Phone: Start: 12-03-2023 End: 12-03-2023 ambulatory ZAHRA LUCYCRISTIAN Facility:[facility] Start: 12-03-2023 Telephone encounter Zahra foster MD Work Phone: [facility] Comment on above: Results Start: 11-27-2023 End: 11-27-2023 ambulatory [facility] Work Phone: Start: 11-27-2023 End: 11-27-2023 Patient encounter procedure [facility] Work Phone: Start: 11-16-2023 Refill Zahra ibrahim MD Work Phone: Hematology/Oncology Comment on above: Refill Request Start: 11-05-2023 End: 11-05-2023 ambulatory ZAHRA ABANKAR Facility:[facility] Start: 11-05-2023 End: 11-05-2023 Nursing evaluation of patient and report Melani Hart Work Phone: Hematology/Oncology Comment on above: 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); Adenocarcinoma (HCC); Abnormal weight loss; Macrocytosis Start: 10-29-2023 End: 10-29-2023 [facility] Start: 10-29-2023 End: 10-29-2023 Office outpatient visit 25 minutes [facility] Work Phone: [facility] Comment on above: Arteriosclerosis of [...] Refill Request Start: 10-08-2023 End: 10-08-2023 ambulatory ZAHRA ABHYANKAR Facility:[facility] Start: 10-08-2023 End: 10-08-2023 Nursing evaluation of patient and report Melani Hart Work Phone: Hematology/Oncology Comment on above: Macrocytosis (Primar y Dx); Abnormal weight loss; Adenocarcinoma (HCC); Cancer of ampulla of Vater (HCC) Start: 10-06-2023 Refill Zahra ibrahim MD Work Phone: Hematology/Oncology Comment on above: Refill Request Start: 10-06-2023 Non-patient / Non-visit [facility] Work Phone: Start: 09-24-2023 End: 09-24-2023 ambulatory ZAHRA ROGERCRISTIAN Facility:[facility] Start: 09-21-2023 Social Work Mackenzie AVILES Hematolo gy/Oncology Start: 09-18-2023 Refill Cassandra Hernandez RN Hemat ology/Oncology Comment on above: Refill Request Start: 09-11-2023 End: 09-11-2023 ambulatory DO Rick Zapata Work Phone: [facility] Work Phone: Start: 09-11-2023 End: 09-11-2023 Patient encounter procedure DO Rick Zapata Work Phone: [facility] Work Phone: Start: 09-10-2023 End: 09-10-2023 Nursing evaluation of patient and report Ma Nurse Zelalem Hart Work Phone: Hematology/Oncology Comment on above: Macrocytosis (Primar y Dx); Abnormal weight loss; Adenocarcinoma (HCC); Cancer of ampulla of Vater (HCC) Start: 09-10-2023 End: 09-10-2023 ambulatory ZAHRA LUCYCRISTIAN Facility:[facility] Start: 09-10-2023 End: 09-10-2023 Office outpatient visit 25 minutes Zahra May MD Work Phone: Hematology/Oncology Comment on above: Iron deficiency anem ia secondary to inadequate dietary iron intake (Primary Dx); Cancer of ampulla of Vater (HCC); Adenocarcinoma (HCC); Anemia due to vitamin B12 deficiency, unspecified B12 deficiency type; Severe protein-calorie malnutrition (HCC) Start: 09-10-2023 Telephone encounter Imelda Jack [facility] Work Phone: [facility] Comment on above: Medication Authoriza tion Start: 09-08-2023 Refill Imelda walker [facility] Work Phone: [facility] Comment on above: Refill Request Start: 09-04-2023 Refill Imelda Singletary esli [facility] Work Phone: [facility] Comment on above: Refill Request Start: 09-03-2023 End: 09-03-2023 ambulatory DAVID CAPUTO Facility:[facility] Start: 09-03-2023 Non-patient / Non-visit DO Jolene Zapata Work Phone: [facility] Work Phone: Start: 09-03-2023 End: 09-03-2023 Subsequent hospital visit by physician Arrival Time Radiology Work Phone: Radiology [facility] Comment on above: 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] Start: 09-02-2023 Telephone encounter Cassandra Longoria Hematology/Oncology Comment on above: Medication Problem Start: 08-31-2023 Non-patient / Non-visit DO Jolene Zapata Work Phone: [facility] Work Phone: Start: 08-31-2023 Refill Zahra ibrahim MD Work Phone: Hematology/Oncology Comment on above: Refill Request Start: 08-27-2023 End: 08-27-2023 Patient encounter procedure DO Rick Rivasmilly Work Phone: [facility] Work Phone: Start: 08-11-2023 Telephone encounter Estrellita Alvarez CMA [facility] Start: 08-10-2023 Orders Only Estrellita Alvarez CMA [facility] Comment on above: Anemia, unspecified type (Primary Dx) Start: 08-06-2023 Orders Only Mary atkins A [facility] Comment on above: Iron deficiency anem ia, unspecified iron deficiency anemia type; History of gastric cancer; Rectal bleeding Start: 08-05-2023 End: 08-05-2023 ambulatory Rick Zapata Facility:[facility] Start: 08-05-2023 End: 08-05-2023 ambulatory DO Rick Zapata Work Phone: [facility] Work Phone: Start: 08-05-2023 End: 08-05-2023 Departed Referred DO Rick Zapata Work Phone: [facility] Start: 07-17-2023 Orders Only Rick Coy lis DO Work Phone: [facility] Comment on above: Iron deficiency anem ia, unspecified iron deficiency anemia type (Primary Dx); History of gastric cancer; Rectal bleeding Start: 07-14-2023 End: 07-14-2023 ambulatory David Caputo Other [employer] Other Start: 07-14-2023 Telephone encounter David Caputo [facility] Start: 06-30-2023 End: 06-30-2023 ambulatory David Caputo Other [employer] Other Start: 06-30-2023 Telephone encounter David Caputo [facility] Start: 06-04-2023 End: 06-04-2023 ambulatory David Caputo Other [employer] Other Start: 06-04-2023 Office outpatient vi sit 25 minutes David Caputo [facility] Start: 06-04-2023 End: 06-04-2023 Patient encounter procedure DO Rick Zapata Work Phone: [facility] Work Phone: Start: 05-22-2023 End: 05-22-2023 ambulatory David Caputo Other [employer] Other Start: 05-22-2023 Telephone encounter David Caputo [facility] Start: 05-19-2023 End: 05-19-2023 ambulatory David Caputo Other [employer] Other Start: 05-19-2023 Telephone encounter David Caputo [facility] Start: 05-06-2023 End: 05-06-2023 ambulatory David Caputo Other [employer] Other Start: 05-06-2023 Telephone encounter David Caputo [facility] Start: 04-14-2023 End: 04-14-2023 ambulatory David Caputo Other [employer] Other Start: 04-14-2023 Telephone encounter David Caputo [facility] Start: 04-09-2023 End: 04-09-2023 Nursing evaluation of patient and report Ma Nurse Zelalem Hart Work Phone: Hematology/Oncology Comment on above: Macrocytosis (Primar y Dx); Abnormal weight loss; Adenocarcinoma (HCC); Cancer of ampulla of Vater (HCC) Start: 04-07-2023 End: 04-07-2023 ambulatory David Caputo Other [employer] Other Start: 04-07-2023 Telephone encounter David Caputo [facility] Start: 03-31-2023 End: 03-31-2023 ambulatory David Caputo Other [employer] Other Start: 03-31-2023 Telephone encounter David Caputo [facility] Start: 03-30-2023 Refill Zahra ibrahim MD Work Phone: Hematology/Oncology Comment on above: Refill Request Start: 03-20-2023 End: 03-20-2023 ambulatory David Caputo Other [employer] Other Start: 03-20-2023 Telephone encounter David Caputo [facility] Start: 03-19-2023 End: 03-19-2023 ambulatory David Caputo Other [employer] Other Start: 03-19-2023 Telephone encounter David Caputo [facility] Start: 03-16-2023 End: 03-16-2023 ambulatory David Caputo Other [employer] Other Start: 03-16-2023 Telephone encounter David Caputo [facility] Start: 03-11-2023 Telephone encounter Zahra foster MD [...] 03-10-2023 End: 03-10-2023 ambulatory David Caputo Other [employer] Other Start: 03-10-2023 Telephone encounter David Caputo [facility] Start: 03-09-2023 End: 03-09-2023 ambulatory David Caputo Other [employer] Other Start: 03-09-2023 Telephone encounter David Caputo [facility] Start: 03-05-2023 End: 03-05-2023 ambulatory David Caputo Other [employer] Other Start: 03-05-2023 Office outpatient vi sit 15 minutes David Caputo [facility] Start: 03-05-2023 Telephone encounter Zahra foster MD [...] 02-19-2023 End: 02-19-2023 ambulatory David Caputo Other [employer] Other Start: 02-19-2023 Telephone encounter David Caputo [facility] Start: 02-17-2023 Telephone encounter Zahra foster MD Work Phone: Hematology/Oncology Comment on above: Lab Orders Start: 02-13-2023 End: 02-13-2023 ambulatory David Caputo Other [employer] Other Start: 02-13-2023 Telephone encounter David Caputo [facility] Start: 02-10-2023 End: 02-10-2023 ambulatory Adriane Espitia Facility:[facility] Start: 02-10-2023 End: 02-10-2023 Patient encounter procedure MD David Caputo Work Phone: [facility] Start: 01-27-2023 End: 01-27-2023 ambulatory David Caputo Facility:[facility] Start: 01-27-2023 End: 01-27-2023 ambulatory MD David Caputo Work Phone: [facility] Work Phone: Start: 01-27-2023 End: 01-27-2023 Patient encounter procedure MD David Caputo Work Phone: [facility] Start: 01-21-2023 Telephone encounter Susan kurtz RN Work Phone: Hematology/Oncology Comment on above: Hospital Admission Start: 01-14-2023 End: 01-14-2023 ambulatory David Caputo Other [employer] Other Start: 01-14-2023 Telephone encounter David Caputo [facility] Start: 01-13-2023 Telephone encounter Cassandra Longoria Hematology/Oncology Comment on above: Results; Appointment Start: 01-12-2023 End: 01-12-2023 ambulatory David Caputo Other [employer] Other Start: 01-12-2023 Telephone encounter David Caputo [facility] Start: 01-01-2023 End: 01-01-2023 ambulatory David Caputo Other [employer] Other Start: 01-01-2023 Office outpatient vi sit 15 minutes David Caputo [facility] Start: 12-26-2022 End: 12-26-2022 Nursing evaluation of patient and report Melani Hart Work Phone: Hematology/Oncology Comment on above: Macrocytosis (Primar y Dx); Abnormal weight loss; Adenocarcinoma (HCC); Cancer of ampulla of Vater (HCC) Start: 12-08-2022 End: 12-08-2022 ambulatory David Caputo Other [employer] Other Start: 12-08-2022 Telephone encounter David Caputo [facility] Start: 12-04-2022 End: 12-04-2022 ambulatory David Caputo Other [employer] Other Start: 12-04-2022 Office outpatient vi sit 15 minutes David Caputo [facility] Start: 11-28-2022 End: 11-28-2022 Nursing evaluation of [...] 11-27-2022 End: 11-27-2022 ambulatory David Caputo Other [employer] Other Start: 11-27-2022 Telephone encounter David Caputo [facility] Start: 11-21-2022 End: 11-21-2022 ambulatory David Caputo Other [employer] Other Start: 11-21-2022 Telephone encounter David Caputo [facility] Start: 11-04-2022 End: 11-04-2022 ambulatory David Caputo Other [employer] Other Start: 11-04-2022 Telephone encounter David Caputo [facility] Start: 10-31-2022 End: 10-31-2022 Nursing evaluation of patient and report Melani Hart Work Phone: Hematology/Oncology Comment on above: Macrocytosis (Primar y Dx); Abnormal weight loss; Adenocarcinoma (HCC); Cancer of ampulla of Vater (HCC) Start: 10-28-2022 End: 10-28-2022 ambulatory Zahra May MD Work Phone: [employer] Other Comment on above: Refill Request Start: 10-28-2022 Telephone encounter David Caputo [facility] Start: 10-03-2022 End: 10-03-2022 Nursing evaluation of patient and report Melani Hart Work Phone: Hematology/Oncology Comment on above: Macrocytosis (Primar y Dx); Abnormal weight loss; Adenocarcinoma (HCC); Cancer of ampulla of Vater (HCC) Start: 09-29-2022 End: 09-29-2022 ambulatory David Caputo Other [employer] Other Start: 09-29-2022 Telephone encounter David Caputo [facility] Start: 09-17-2022 End: 09-17-2022 ambulatory David Caputo Other [employer] Other Start: 09-17-2022 Telephone encounter Davidyossi Caputo [facility] Start: 09-16-[address] David Caputo Facility: Start: 09-08-2022 End: 09-08-2022 ambulatory David Caupto Other [employer] Other Start: 09-08-2022 Telephone encounter David Harshal [facility] Start: 09-05-2022 End: 09-05-2022 Nursing evaluation of patient and report Melani Hart Work Phone: Hematology/Oncology Comment on above: Macrocytosis (Primar y Dx); Abnormal weight loss; Adenocarcinoma (HCC); Cancer of ampulla of Vater (HCC) Start: 08-19-2022 Refill Zahra ibrahim MD Work Phone: Hematology/Oncology Comment on above: Refill Request Start: 08-11-2022 End: 08-11-2022 ambulatory David Caputo Other [employer] Other Start: 08-11-2022 Telephone encounter David Harshal [facility] Start: 08-08-2022 End: 08-08-2022 Office outpatient visit 15 minutes Zahra May MD Work Phone: Hematology/Oncology Comment on above: Macrocytosis (Primar y Dx); Anemia due to vitamin B12 deficiency, unspecified B12 deficiency type; Anemia due to folic acid deficiency, unspecified deficiency type; Cancer of ampulla of Vater (HCC) Start: 08-08-2022 Telephone encounter Maaglys Cruz RN Hematology/Oncology Comment on above: Critical Results Start: 07-24-2022 End: 07-24-2022 ambulatory David Caputo Other [employer] Other Start: 07-24-2022 Telephone encounter David Caputo [facility] Start: 07-17-2022 End: 07-17-2022 ambulatory David Caputo Other [employer] Other Start: 07-17-2022 Office outpatient vi sit 25 minutes David Caputo [facility] Start: 07-11-2022 End: 07-12-[address] CORY [...] Rx Renewal David Caputo Work Phone: [facility] [facility] DO Work Phone: Start: 06-06-2022 End: 06-06-2022 Nursing evaluation of patient and report Melani [...] encounter procedure Zahra May MD Work Phone: [facility] Start: 05-19-2022 Refill Rola Gordon APRN.LUMBER TAILER Work Phone: Hematology/Oncology Comment on above: Refill Request Start: 05-13-2022 Adult health examination Rhea Caputo Other [facility] [employer] Other Start: 05-12-2022 End: 05-13-[address] DAVID CAPUTO Facility: Start: 05-08-2022 End: 05-08-2022 Nursing evaluation of patient and report Melani [...] [facility] Start: 04-10-2022 End: 04-10-2022 ambulatory Chair 13 [address] Work Phone: Hematology/Oncology Comment on above: [...] Lab Orders Start: 03-27-2022 Refill Imelda walker [facility] Work Phone: Hematology/Oncology Comment on above: Refill [...] End: 03-13-2022 Patient encounter procedure Rola Gordon APRN.LUMBER TAILER Work Phone: [facility] Start: 03-10-2022 Rx Renewal David Caputo Work Phone: [facility] 250 DO Work Phone: Start: 03-06-2022 Rx Renewal David E Harshal Work Phone: [facility] 250 DO Work Phone: Start: 02-28-2022 Social [...] 01-16-2022 End: 01-16-2022 ambulatory Nate Hanson Other [facility] [employer] Other Start: 01-16-2022 Office outpatient vi sit 25 minutes Nate Hanson [facility] Gastroenterology Start: 01-09-[address] Irving Abreu [...] encounter procedure Zahra May MD Work Phone: [facility] Start: 12-03-2021 Chart abstracting Zahra zapata MD Work Phone: Hematology/Oncology Start: 11-26-2021 End: 11-27-[address] DAVID CAPUTO Facility:[facility] Start: 11-12-2021 End: 11-13-[address] DAVID CAPUTO Facility:[facility] Start: 10-10-2021 End: 10-11-[address] DAVID CAPUTO Facility:[facility] Start: 07-02-2021 Rx Renewal Irving Garcia n DO Work Phone: [facility] 250 DO Work Phone: Start: 09-30-2017 End: 10-09-2017 Evaluation and management of inpatient MICHAEL CEDILLO) [facility] Start: 09-28-2017 Ambulatory MAU DUFFY Facility: [id number] Start: 09-24-2017 Ambulatory MICHAEL CEDILLO) [facility] Start: 08-14-2017 End: 09-01-2017 Evaluation and management of inpatient MICHAEL CEDILLO) [facility] Procedures Date Procedure Procedure Detail Performing Clinician Start: 07-01-2024 End: 07-01-2024 Blood count complete auto&auto difrntl wbc Zahra May MD Work Phone: Start: 06-09-2024 Assay of ferritin Zahra May MD Work Phone: Start: 05-31-2024 Colonoscopy Arrival Radiology Work Phone: Start: 03-03-2024 Ct abdomen & pelvis w/contrast [...] on above: Performed By: #### [facility] #### [facility] [address] [place] [address] Dr. Mel Barrientos Start: 01-26-2020 Total colonoscopy [...] Treatment Date Care Activity Detail Author Start: 07-01-2027 Diabetes Screening Diabetes Screening [facility] Start: 05-30-2027 Diabetes Screening Diabetes Screening [facility] Start: 03-03-2027 Diabetes Screening Diabetes Screening [facility] Start: 12-02-2026 Diabetes Screening Diabetes Screening [facility] Start: 10-10-2026 PROSTATE CANCER SCREENING DISCUSSION PROSTATE CANCER SCREENING DISCUSSION [facility] Start: 10-10-2026 Prostate specific antigen measurement Prostate Cancer Screening Discussion [facility] Start: 09-02-2026 Diabetes Screening Diabetes Screening [facility] Start: 03-11-2026 Diabetes Screening Diabetes Screening [facility] Start: 02-19-2026 DIABETES SCREEN DIABETES SCREEN [facility] Start: 11-28-2025 DIABETES SCREEN DIABETES SCREEN [facility] Start: 10-03-2025 DIABETES SCREEN DIABETES SCREEN [facility] Start: 08-08-2025 DIABETES SCREEN DIABETES SCREEN [facility] Start: 07-03-2025 DIABETES SCREEN DIABETES SCREEN [facility] Start: 06-06-2025 DIABETES SCREEN DIABETES SCREEN [facility] Start: 05-31-2025 Screening for malignant neoplasm of colon [facility] Start: 05-08-2025 DIABETES SCREEN DIABETES SCREEN [facility] Start: 04-03-2025 DIABETES SCREEN DIABETES SCREEN [facility] Start: 03-06-2025 DIABETES SCREEN DIABETES SCREEN [facility] Start: 02-06-2025 DIABETES SCREEN DIABETES SCREEN [facility] Start: 11-10-2024 End: 11-10-2024 Patient encounter procedure 11/10/2024 11:30 AM EDT Office Visit [facility] [address] [place] [address] Irving Abreu DO [address] [place] [address] [facility] Start: 08-12-2024 End: 08-12-2024 Nursing evaluation of patient and report 08/12/2024 3:00 PM EST Nurse Visit Hematology/Oncology [address] [place] [address] Melani Hart Nurse Zelalem [address] [place] [address] 4 week follow up with lab and B 12 inj Hematology/Oncology Comment on above: 4 week follow up with lab and B 12 inj Start: 08-12-2024 End: 08-12-2024 Follow-up encounter 08/12/2024 2:30 PM EST Visit (SP) Office Hematology/Oncology [address] [address] Palak Kitchen APRN.LUMBER TAILER [address] [place] [address] 4 week follow up with lab and B 12 inj Hematology/Oncology Comment on above: 4 week follow up with lab and B 12 inj Start: 08-12-2024 End: 08-12-2024 Patient encounter procedure 08/12/2024 2:15 PM EST Office Visit [facility] [address] [address] 4 week follow up with lab and B [address] [facility] Comment on above: 4 week follow up with lab and B 12 inj Start: 07-15-2024 End: 07-15-2024 Nursing evaluation of patient and report 07/15/2024 2:15 PM EST Nurse Visit Hematology/Oncology [address] [place] [address] Melani Hart Nurse Zelalem [address] [place] [address] B 12 Hematology/Oncology Comment on above: B 12 Start: 07-15-2024 End: 07-15-2024 Follow-up encounter 07/15/2024 1:40 PM EST Visit (SP) Office Hematology/Oncology [address] [place] [address] Zahra May MD [address] [place] [address] 1 week follow up after pet scan Hematology/Oncology Comment on above: 1 week follow up after pet scan Start: 07-01-2024 End: 07-01-2024 Patient encounter procedure 07/01/2024 1:30 PM EST Appointment Radiology Pet CT [address] [place] [address] Comment on above: Pet scan Start: 06-29-2024 Advance Directive Discussion Advance Directive Discussion [facility] Start: 06-16-2024 End: 06-16-2024 Follow-up encounter Hematology/Oncology Comment on above: follow up after ct and lab Start: 06-16-2024 End: 06-16-2025 CBC W Auto Differential panel - Blood COMPLETE BLOOD COUNT AND DIFFERENTIAL Lab Routine 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) Iron deficiency anemia secondary to inadequate dietary iron intake Gastrointestinal hemorrhage associated with duodenitis Expected: 06/16/2024, Expires: 06/16/2025 [facility] Comment on above: Expected: 06/16/2024, Expires: Start: 06-16-2024 End: 06-16-2025 Cobalamin (Vitamin B12) [Mass/volume] in Serum or Plasma VITAMIN B12 Lab Routine 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) Iron deficiency anemia secondary to inadequate dietary iron intake Gastrointestinal hemorrhage associated with duodenitis Expected: 06/16/2024, Expires: 06/16/2025 [facility] Comment on above: Expected: 06/16/2024, Expires: Start: 06-16-2024 End: 06-16-2025 Comprehensive metabolic 2000 panel - Serum or Plasma COMPREHENSIVE METABOLIC PANEL Lab Routine 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) Iron deficiency anemia secondary to inadequate dietary iron intake Gastrointestinal hemorrhage associated with duodenitis Expected: 06/16/2024, Expires: 06/16/2025 [facility] Comment on above: Expected: 06/16/2024, Expires: Start: 06-16-2024 End: 06-16-2025 Ferritin [Mass/volume] in Serum or Plasma FERRITIN Lab Routine 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) Iron deficiency anemia secondary to inadequate dietary iron intake Gastrointestinal hemorrhage associated with duodenitis Expected: 06/16/2024, Expires: 06/16/2025 [facility] Comment on above: Expected: 06/16/2024, Expires: Start: 06-16-2024 End: 06-16-2025 Folate [Mass/volume] in Serum or Plasma FOLATE, SERUM Lab Routine 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) Iron deficiency anemia secondary to inadequate dietary iron intake Gastrointestinal hemorrhage associated with duodenitis Expected: 06/16/2024, Expires: 06/16/2025 [facility] Comment on above: Expected: 06/16/2024, Expires: Start: 06-16-2024 End: 06-16-2025 Iron and Iron binding capacity panel - Serum or Plasma IRON AND TIBC Lab Routine 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) Iron deficiency anemia secondary to inadequate dietary iron intake Gastrointestinal hemorrhage associated with duodenitis Expected: 06/16/2024, Expires: 06/16/2025 [facility] Comment on above: Expected: 06/16/2024, Expires: Start: 06-09-2024 End: 03-10-2025 CBC W Auto Differential panel - Blood COMPLETE BLOOD COUNT AND DIFFERENTIAL Lab Routine Cancer of ampulla of Vater (HCC) Iron deficiency anemia secondary to inadequate dietary iron intake Anemia due to vitamin B12 deficiency, unspecified B12 deficiency type Expected: 06/09/2024 (Approximate), Expires: 03/10/2025 [facility] Comment on above: Expected: 06/09/2024 (Approximate), Expi res: 03/10/2025 Start: 06-09-2024 End: 03-10-2025 Cobalamin (Vitamin B12) [Mass/volume] in Serum or Plasma VITAMIN B12 Lab Routine Cancer of ampulla of Vater (HCC) Iron deficiency anemia secondary to inadequate dietary iron intake Anemia due to vitamin B12 deficiency, unspecified B12 deficiency type Expected: 06/09/2024 (Approximate), Expires: 03/10/2025 [facility] Comment on above: Expected: 06/09/2024 (Approximate), Expi res: 03/10/2025 Start: 06-09-2024 End: 03-10-2025 Comprehensive metabolic 2000 panel - Serum or Plasma COMPREHENSIVE METABOLIC PANEL Lab Routine Cancer of ampulla of Vater (HCC) Iron deficiency anemia secondary to inadequate dietary iron intake Anemia due to vitamin B12 deficiency, unspecified B12 deficiency type Expected: 06/09/2024 (Approximate), Expires: 03/10/2025 [facility] Comment on above: Expected: 06/09/2024 (Approximate), Expi res: 03/10/2025 Start: 06-09-2024 End: 04-09-2025 CT Abdomen and Pelvis W contrast IV [place] Work Phone: Comment on above: Expected: 06/09/2024 (Approximate), Expi res: 04/09/2025 Start: 06-09-2024 End: 04-09-2025 CT Chest W contrast IV [facility] Comment on above: Expected: 06/09/2024 (Approximate), Expi res: 04/09/2025 Start: 06-09-2024 End: 03-10-2025 Ferritin [Mass/volume] in Serum or Plasma FERRITIN Lab Routine Cancer of ampulla of Vater (HCC) Iron deficiency anemia secondary to inadequate dietary iron intake Anemia due to vitamin B12 deficiency, unspecified B12 deficiency type Expected: 06/09/2024 (Approximate), Expires: 03/10/2025 [facility] Comment on above: Expected: 06/09/2024 (Approximate), Expi res: 03/10/2025 Start: 06-09-2024 End: 03-10-2025 Folate [Mass/volume] in Serum or Plasma FOLATE, SERUM Lab Routine Cancer of ampulla of Vater (HCC) Iron deficiency anemia secondary to inadequate dietary iron intake Anemia due to vitamin B12 deficiency, unspecified B12 deficiency type Expected: 06/09/2024 (Approximate), Expires: 03/10/2025 [facility] Comment on above: Expected: 06/09/2024 (Approximate), Expi res: 03/10/2025 Start: 06-09-2024 End: 03-10-2025 Iron and Iron binding capacity panel - Serum or Plasma IRON AND TIBC Lab Routine Cancer of ampulla of Vater (HCC) Iron deficiency anemia secondary to inadequate dietary iron intake Anemia due to vitamin B12 deficiency, unspecified B12 deficiency type Expected: 06/09/2024 (Approximate), Expires: 03/10/2025 [facility] Comment on above: Expected: 06/09/2024 (Approximate), Expi res: 03/10/2025 Start: 06-09-2024 End: 06-09-2024 Patient encounter procedure Radiology Pet CT Comment on above: ct cap w ct cap w Please have Rocio see Pharmacy or call Pharmacy to let them know he is here Start: 05-25-2024 End: 05-25-2024 Nursing evaluation of patient and report 05/25/2024 2:45 PM EST Nurse Visit Hematology/Oncology [address] [place] [address] [place] [address] Melani Hart Nurse Zelalem [address] [place] [address] [place] [address] CAP with contrast lab and B 12 inj(sent Msg to Chris) Hematology/Oncology Comment on above: [address] CAP with contrast lab and B 1 2 inj(sent Msg to Chris) Start: 04-28-2024 End: 04-28-2024 Nursing evaluation of patient and report 04/28/2024 2:45 PM EDT Nurse Visit Hematology/Oncology [address] [place] [address] [place] [address] Melani Hart Nurse Zelalem [address] [place] [address] [place] [address] CAP with contrast lab and B 12 inj(sent Msg to Chris) Hematology/Oncology Comment on above: [address] CAP with contrast lab and B 1 2 inj(sent Msg to Chris) Start: 03-31-2024 End: 03-31-2024 Nursing evaluation of patient and report 03/31/2024 2:30 PM EDT Nurse Visit Hematology/Oncology [address] [place] [address] [place] [address] Melani Hart Nurse Zelalem [address] [place] [address] [place] [address] CAP with contrast lab and B 12 inj(sent Msg to Chris) Hematology/Oncology Comment on above: [address] CAP with contrast lab and B 1 2 inj(sent Msg to Chris) Start: 03-10-2024 End: 03-10-2024 Follow-up encounter 03/10/2024 2:30 PM EDT Visit (SP) Office Hematology/Oncology [address] [place] [address] Zahra May MD [address] [place] [address] and lab Hematology/Oncology Comment on above: follow up after ct and lab Start: 03-04-2024 End: 06-03-2024 Cancer Ag 19-9 [Units/volume] in Serum or Plasma CA 19-9 Lab Routine Iron deficiency anemia secondary to inadequate dietary iron intake Cancer of ampulla of Vater (HCC) Anemia due to vitamin B12 deficiency, unspecified B12 deficiency type Expected: 03/04/2024 (Approximate), Expires: 06/03/2024 [facility] Comment on above: Expected: 03/04/2024 (Approximate), Expi res: 06/03/2024 Start: 03-04-2024 End: 12-02-2024 CBC W Auto Differential panel - Blood COMPLETE BLOOD COUNT AND DIFFERENTIAL Lab Routine Iron deficiency anemia secondary to inadequate dietary iron intake Cancer of ampulla of Vater (HCC) Anemia due to vitamin B12 deficiency, unspecified B12 deficiency type Expected: 03/04/2024 (Approximate), Expires: 12/02/2024 [facility] Comment on above: Expected: 03/04/2024 (Approximate), Expi res: 12/02/2024 Start: 03-04-2024 End: 12-02-2024 Cobalamin (Vitamin B12) [Mass/volume] in Serum or Plasma VITAMIN B12 Lab Routine Iron deficiency anemia secondary to inadequate dietary iron intake Cancer of ampulla of Vater (HCC) Anemia due to vitamin B12 deficiency, unspecified B12 deficiency type Expected: 03/04/2024 (Approximate), Expires: 12/02/2024 [facility] Comment on above: Expected: 03/04/2024 (Approximate), Expi res: 12/02/2024 Start: 03-04-2024 End: 12-02-2024 Comprehensive metabolic 2000 panel - Serum or Plasma COMPREHENSIVE METABOLIC PANEL Lab Routine Iron deficiency anemia secondary to inadequate dietary iron intake Cancer of ampulla of Vater (HCC) Anemia due to vitamin B12 deficiency, unspecified B12 deficiency type Expected: 03/04/2024 (Approximate), Expires: 12/02/2024 [facility] Comment on above: Expected: 03/04/2024 (Approximate), Expi res: 12/02/2024 Start: 03-04-2024 End: 01-01-2025 CT Abdomen and Pelvis W contrast IV CT ABD/PEL W IVCON Radiology Routine Iron deficiency anemia secondary to inadequate dietary iron intake Cancer of ampulla of Vater (HCC) Anemia due to vitamin B12 deficiency, unspecified B12 deficiency type Expected: 03/04/2024 (Approximate), Expires: 01/01/2025 [place] Work Phone: Comment on above: Expected: 03/04/2024 (Approximate), Expi res: 01/01/2025 Start: 03-04-2024 End: 01-01-2025 CT Chest W contrast IV CT CHEST W IVCON Radiology Routine Iron deficiency anemia secondary to inadequate dietary iron intake Cancer of ampulla of Vater (HCC) Anemia due to vitamin B12 deficiency, unspecified B12 deficiency type Expected: 03/04/2024 (Approximate), Expires: 01/01/2025 [facility] Comment on above: Expected: 03/04/2024 (Approximate), Expi res: 01/01/2025 Start: 03-04-2024 End: 12-02-2024 Ferritin [Mass/volume] in Serum or Plasma FERRITIN Lab Routine Iron deficiency anemia secondary to inadequate dietary iron intake Cancer of ampulla of Vater (HCC) Anemia due to vitamin B12 deficiency, unspecified B12 deficiency type Expected: 03/04/2024 (Approximate), Expires: 12/02/2024 [facility] Comment on above: Expected: 03/04/2024 (Approximate), Expi res: 12/02/2024 Start: 03-04-2024 End: 12-02-2024 Folate [Mass/volume] in Serum or Plasma FOLATE, SERUM Lab Routine Iron deficiency anemia secondary to inadequate dietary iron intake Cancer of ampulla of Vater (HCC) Anemia due to vitamin B12 deficiency, unspecified B12 deficiency type Expected: 03/04/2024 (Approximate), Expires: 12/02/2024 [facility] Comment on above: Expected: 03/04/2024 (Approximate), Expi res: 12/02/2024 Start: 03-04-2024 End: 12-02-2024 Iron and Iron binding capacity panel - Serum or Plasma IRON AND TIBC Lab Routine Iron deficiency anemia secondary to inadequate dietary iron intake Cancer of ampulla of Vater (HCC) Anemia due to vitamin B12 deficiency, unspecified B12 deficiency type Expected: 03/04/2024 (Approximate), Expires: 12/02/2024 [facility] Comment on above: Expected: 03/04/2024 (Approximate), Expi res: 12/02/2024 Start: 03-03-2024 End: 03-03-2024 Nursing evaluation of patient and report 03/03/2024 2:00 PM EDT Nurse Visit Hematology/Oncology [address] [address] Melani Hart Nurse Zelalem [address] [place] [address] CAP with contrast lab and B 12 inj Hematology/Oncology Comment on above: [address] CAP with contrast lab and B 1 2 inj Start: 03-03-2024 End: 03-03-2024 Patient encounter procedure 03/03/2024 12:15 PM EDT Appointment Radiology Pet CT [address] [place] [address] CAP with contrast lab and B [address] Comment on above: [address] CAP with contrast lab and B 1 2 inj Start: 02-28-2024 Covid-19 Vaccine () Covid-19 Vaccine () [facility] Start: 02-28-2024 Covid-19 Vaccine () Covid-19 Vaccine () [facility] Start: 02-28-2024 Covid-19 Vaccine () Covid-19 Vaccine () [facility] Start: 02-28-2024 Influenza vaccination [facility] Start: 01-29-2024 End: 01-29-2024 Nursing evaluation of patient and report 01/29/2024 2:30 PM EDT Nurse Visit Hematology/Oncology [address] [place] [address] Melani Hrat Nurse Zelalem [address] [address] B 12 q 4 weeks Hematology/Oncology Comment on above: B 12 q 4 weeks Start: 01-01-2024 End: 01-01-2024 Nursing evaluation of patient and report 01/01/2024 2:30 PM EDT Nurse Visit Hematology/Oncology [address] [place] [address] Melani Hart Nurse Zelalem [address] [place] [address] B 12 q 4 weeks Hematology/Oncology Comment on above: B 12 q 4 weeks Start: 12-03-2023 End: 12-03-2023 Nursing evaluation of patient and report 12/03/2023 3:15 PM EDT Nurse Visit Hematology/Oncology [address] [place] [address] Melani Hart Nurse Zelalem [address] [place] [address] 3 month follow up with lab and B 12 inj Hematology/Oncology Comment on above: 3 month follow up with lab and B 12 inj Start: 12-03-2023 End: 12-03-2023 Follow-up encounter 12/03/2023 3:00 PM EDT Visit (SP) Office Hematology/Oncology [address] [address] Zahra May MD [address] [place] [address] 3 month follow up with lab and B 12 inj Hematology/Oncology Comment on above: 3 month follow up with lab and B 12 inj Start: 12-03-2023 End: 12-03-2023 Patient encounter procedure 12/03/2023 2:45 PM EDT Office Visit [facility] [address] [address] 3 month follow up with lab and B [address] [facility] Comment on above: 3 month follow up with lab and B 12 inj Start: 11-22-2023 COVID-19 Vaccine ( season) COVID-19 Vaccine ( season) [facility] Start: 09-17-2023 FUV, Provider: Irving Abreu, Status: Pen, Time: 10:50 AM FUV, Provider: Irving Abreu, Status: Pen, Time: 10:50 AM -[facility] [address] DO Work Phone: Start: 06-29-2023 Advance Directive Discussion Advance Directive Discussion [facility] Start: 06-29-2023 Behavioral Health Screening Behavioral Health Screening [facility] Start: 06-29-2023 End: 08-29-2023 Cancer Ag 19-9 [Units/volume] in Serum or Plasma CA 19-9 BLD Lab Routine Cancer of ampulla of Vater (HCC) Anemia due to vitamin B12 deficiency, unspecified B12 deficiency type Severe protein-calorie malnutrition (HCC) Expected: 06/29/2023 (Approximate), Expires: 08/29/2023 [place] Work Phone: Comment on above: Expected: 06/29/2023 (Approximate), Expi res: 08/29/2023 Start: 06-29-2023 End: 03-16-2024 CBC W Auto Differential panel - Blood CBC + DIFF Lab Routine Cancer of ampulla of Vater (HCC) Anemia due to vitamin B12 deficiency, unspecified B12 deficiency type Severe protein-calorie malnutrition (HCC) Expected: 06/29/2023 (Approximate), Expires: 03/16/2024 [place] Work Phone: Comment on above: Expected: 06/29/2023 (Approximate), Expi res: 03/16/2024 Start: 06-29-2023 End: 03-16-2024 Cobalamin (Vitamin B12) [Mass/volume] in Serum or Plasma VITAMIN B12 BLOOD Lab Routine Cancer of ampulla of Vater (HCC) Anemia due to vitamin B12 deficiency, unspecified B12 deficiency type Severe protein-calorie malnutrition (HCC) Expected: 06/29/2023 (Approximate), Expires: 03/16/2024 [place] Work Phone: Comment on above: Expected: 06/29/2023 (Approximate), Expi res: 03/16/2024 Start: 06-29-2023 End: 03-16-2024 Comprehensive metabolic 2000 panel - Serum or Plasma COMP METABOLIC PANEL Lab Routine Cancer of ampulla of Vater (HCC) Anemia due to vitamin B12 deficiency, unspecified B12 deficiency type Severe protein-calorie malnutrition (HCC) Expected: 06/29/2023 (Approximate), Expires: 03/16/2024 [place] Work Phone: Comment on above: Expected: 06/29/2023 (Approximate), Expi res: 03/16/2024 Start: 06-29-2023 End: 04-14-2024 Ct abdomen & pelvis w/contrast material CT ABD/PEL W IVCON Radiology Routine Cancer of ampulla of Vater (HCC) Anemia due to vitamin B12 deficiency, unspecified B12 deficiency type Severe protein-calorie malnutrition (HCC) Expected: 06/29/2023 (Approximate), Expires: 04/14/2024 [place] Work Phone: Comment on above: Expected: 06/29/2023 (Approximate), Expi res: 04/14/2024 Start: 06-29-2023 End: 04-14-2024 CT CHEST W IVCON CT CHEST W IVCON Radiology Routine Cancer of ampulla of Vater (HCC) Anemia due to vitamin B12 deficiency, unspecified B12 deficiency type Severe protein-calorie malnutrition (HCC) Expected: 06/29/2023 (Approximate), Expires: 04/14/2024 [place] Work Phone: Comment on above: Expected: 06/29/2023 (Approximate), Expi res: 04/14/2024 Start: 06-29-2023 Depression Assessment Depression Assessment [facility] Start: 06-29-2023 End: 03-16-2024 Ferritin [Mass/volume] in Serum or Plasma FERRITIN BLD Lab Routine Cancer of ampulla of Vater (HCC) Anemia due to vitamin B12 deficiency, unspecified B12 deficiency type Severe protein-calorie malnutrition (HCC) Expected: 06/29/2023 (Approximate), Expires: 03/16/2024 [place] Work Phone: Comment on above: Expected: 06/29/2023 (Approximate), Expi res: 03/16/2024 Start: 06-29-2023 End: 03-16-2024 Folate [Mass/volume] in Serum or Plasma FOLATE SERUM Lab Routine Cancer of ampulla of Vater (HCC) Anemia due to vitamin B12 deficiency, unspecified B12 deficiency type Severe protein-calorie malnutrition (HCC) Expected: 06/29/2023 (Approximate), Expires: 03/16/2024 [place] Work Phone: Comment on above: Expected: 06/29/2023 (Approximate), Expi res: 03/16/2024 Start: 06-29-2023 End: 03-16-2024 Iron and Iron binding capacity panel - Serum or Plasma IRON + TIBC Lab Routine Cancer of ampulla of Vater (HCC) Anemia due to vitamin B12 deficiency, unspecified B12 deficiency type Severe protein-calorie malnutrition (HCC) Expected: 06/29/2023 (Approximate), Expires: 03/16/2024 [place] Work Phone: Comment on above: Expected: 06/29/2023 (Approximate), Expi res: 03/16/2024 Start: 03-11-2023 End: 05-11-2023 Cancer Ag 19-9 [Units/volume] in Serum or Plasma CA 19-9 BLD Lab Routine Cancer of ampulla of Vater (HCC) Expected: 03/11/2023 (Approximate), Expires: 05/11/2023 [place] Work Phone: Comment on above: Expected: 03/11/2023 (Approximate), Expi res: 05/11/2023 Start: 03-11-2023 End: 03-05-2024 CBC W Auto Differential panel - Blood CBC + DIFF Lab Routine Cancer of ampulla of Vater (HCC) Expected: 03/11/2023 (Approximate), Expires: 03/05/2024 [place] Work Phone: Comment on above: Expected: 03/11/2023 (Approximate), Expi res: 03/05/2024 Start: 03-11-2023 End: 03-05-2024 Cobalamin (Vitamin B12) [Mass/volume] in Serum or Plasma VITAMIN B12 BLOOD Lab Routine Cancer of ampulla of Vater (HCC) Expected: 03/11/2023 (Approximate), Expires: 03/05/2024 [place] Work Phone: Comment on above: Expected: 03/11/2023 (Approximate), Expi res: 03/05/2024 Start: 03-11-2023 End: 03-05-2024 Comprehensive metabolic 2000 panel - Serum or Plasma COMP METABOLIC PANEL Lab Routine Cancer of ampulla of Vater (HCC) Expected: 03/11/2023 (Approximate), Expires: 03/05/2024 [place] Work Phone: Comment on above: Expected: 03/11/2023 (Approximate), Expi res: 03/05/2024 Start: 03-11-2023 End: 03-05-2024 Ferritin [Mass/volume] in Serum or Plasma FERRITIN BLD Lab Routine Cancer of ampulla of Vater (HCC) Expected: 03/11/2023 (Approximate), Expires: 03/05/2024 [place] Work Phone: Comment on above: Expected: 03/11/2023 (Approximate), Expi res: 03/05/2024 Start: 03-11-2023 End: 03-05-2024 Folate [Mass/volume] in Serum or Plasma FOLATE SERUM Lab Routine Cancer of ampulla of Vater (HCC) Expected: 03/11/2023 (Approximate), Expires: 03/05/2024 [place] Work Phone: Comment on above: Expected: 03/11/2023 (Approximate), Expi res: 03/05/2024 Start: 03-11-2023 End: 03-05-2024 Iron and Iron binding capacity panel - Serum or Plasma IRON + TIBC Lab Routine Cancer of ampulla of Vater (HCC) Expected: 03/11/2023 (Approximate), Expires: 03/05/2024 [place] Work Phone: Comment on above: Expected: 03/11/2023 (Approximate), Expi res: 03/05/2024 Start: 03-05-2023 End: 03-20-[address] attenuation skull base mid-thigh NM PET/CT SKULL-THIGH INITIAL Radiology Routine Cancer of ampulla of Vater (HCC) Expected: 03/05/2023 (Approximate), Expires: 03/20/2024 [place] Work Phone: Comment on above: Expected: 03/05/2023 (Approximate), Expi res: 03/20/2024 Start: 02-27-2023 Covid-19 Vaccine () Covid-19 Vaccine () [facility] Start: 02-27-2023 Influenza vaccination [facility] Start: 02-19-2023 End: 02-18-2024 CBC W Auto Differential panel - Blood CBC + DIFF Lab Routine Anemia due to vitamin B12 deficiency, unspecified B12 deficiency type Expected: 02/19/2023 (Approximate), Expires: 02/18/2024 [place] Work Phone: Comment on above: Expected: 02/19/2023 (Approximate), Expi res: 02/18/2024 Start: 02-19-2023 End: 02-18-2024 Cobalamin (Vitamin B12) [Mass/volume] in Serum or Plasma VITAMIN B12 BLOOD Lab Routine Anemia due to vitamin B12 deficiency, unspecified B12 deficiency type Expected: 02/19/2023 (Approximate), Expires: 02/18/2024 [place] Work Phone: Comment on above: Expected: 02/19/2023 (Approximate), Expi res: 02/18/2024 Start: 02-19-2023 End: 02-18-2024 Comprehensive metabolic 2000 panel - Serum or Plasma COMP METABOLIC PANEL Lab Routine Anemia due to vitamin B12 deficiency, unspecified B12 deficiency type Expected: 02/19/2023 (Approximate), Expires: 02/18/2024 [place] Work Phone: Comment on above: Expected: 02/19/2023 (Approximate), Expi res: 02/18/2024 Start: 02-19-2023 End: 02-18-2024 Ferritin [Mass/volume] in Serum or Plasma FERRITIN BLD Lab Routine Anemia due to vitamin B12 deficiency, unspecified B12 deficiency type Expected: 02/19/2023 (Approximate), Expires: 02/18/2024 [place] Work Phone: Comment on above: Expected: 02/19/2023 (Approximate), Expi res: 02/18/2024 Start: 02-19-2023 End: 02-18-2024 Folate [Mass/volume] in Serum or Plasma FOLATE SERUM Lab Routine Anemia due to vitamin B12 deficiency, unspecified B12 deficiency type Expected: 02/19/2023 (Approximate), Expires: 02/18/2024 [place] Work Phone: Comment on above: Expected: 02/19/2023 (Approximate), Expi res: 02/18/2024 Start: 02-19-2023 End: 02-18-2024 Iron and Iron binding capacity panel - Serum or Plasma IRON + TIBC Lab Routine Anemia due to vitamin B12 deficiency, unspecified B12 deficiency type Expected: 02/19/2023 (Approximate), Expires: 02/18/2024 [place] Work Phone: Comment on above: Expected: 02/19/2023 (Approximate), Expi res: 02/18/2024 Start: 01-27-2023 Insulin C-peptide measurement [facility] Start: 01-07-2023 FUV, Provider: Irving Abreu, Status: Pen, Time: 10:20 AM FUV, Provider: Irving Abreu, Status: Pen, Time: 10:20 AM -[place] [id number] DO Work Phone: Start: 08-14-2022 Pneumococcal Vaccine: 65+ (3 - PPSV23 or PCV20) Pneumococcal Vaccine: 65+ (3 - PPSV23 or PCV20) [facility] Start: 08-14-2022 Pneumococcal Vaccine: 65+ (3 of 3 - PPSV23 or PCV20) Pneumococcal Vaccine: 65+ (3 of 3 - PPSV23 or PCV20) [facility] Start: 08-14-2022 PNEUMOCOCCAL: 65+ (#3) PNEUMOCOCCAL: 65+ (#3) [facility] Start: 08-14-2022 PNEUMOCOCCAL: 65+ (3 - PPSV23 if available, else PCV20) PNEUMOCOCCAL: 65+ (3 - PPSV23 if available, else PCV20) [facility] Start: 08-14-2022 PNEUMOCOCCAL: 65+ (3 - PPSV23 or PCV20) PNEUMOCOCCAL: 65+ (3 - PPSV23 or PCV20) [facility] Start: 07-04-2022 End: 09-03-2022 Cancer Ag 19-9 [Units/volume] in Serum or Plasma CA 19-9 BLD Lab Routine Cancer of ampulla of Vater (HCC) Expected: 07/04/2022 (Approximate), Expires: 09/03/2022 [place] Work Phone: Comment on above: Expected: 07/04/2022 (Approximate), Expi res: 09/03/2022 Start: 07-04-2022 End: 06-06-2023 CBC W Auto Differential panel - Blood CBC + DIFF Lab Routine Anemia due to vitamin B12 deficiency, unspecified B12 deficiency type Expected: 07/04/2022 (Approximate), Expires: 06/06/2023 [place] Work Phone: Comment on above: Expected: 07/04/2022 (Approximate), Expi res: 06/06/2023 Start: 07-04-2022 End: 06-06-2023 Cobalamin (Vitamin B12) [Mass/volume] in Serum or Plasma VITAMIN B12 BLOOD Lab Routine Anemia due to vitamin B12 deficiency, unspecified B12 deficiency type Expected: 07/04/2022 (Approximate), Expires: 06/06/2023 [place] Work Phone: Comment on above: Expected: 07/04/2022 (Approximate), Expi res: 06/06/2023 Start: 07-04-2022 End: 06-06-2023 Comprehensive metabolic 2000 panel - Serum or Plasma COMP METABOLIC PANEL Lab Routine Anemia due to vitamin B12 deficiency, unspecified B12 deficiency type Expected: 07/04/2022 (Approximate), Expires: 06/06/2023 [place] Work Phone: Comment on above: Expected: 07/04/2022 (Approximate), Expi res: 06/06/2023 Start: 07-04-2022 End: 07-06-2023 Ct abdomen & pelvis w/contrast material CT ABD/PEL W IVCON Radiology Routine Interstitial pulmonary disease (HCC) Cancer of ampulla of Vater (HCC) Anemia due to vitamin B12 deficiency, unspecified B12 deficiency type Expected: 07/04/2022 (Approximate), Expires: 07/06/2023 [place] Work Phone: Comment on above: Expected: 07/04/2022 (Approximate), Expi res: 07/06/2023 Start: 07-04-2022 End: 07-06-2023 CT CHEST W IVCON CT CHEST W IVCON Radiology Routine Interstitial pulmonary disease (HCC) Cancer of ampulla of Vater (HCC) Anemia due to vitamin B12 deficiency, unspecified B12 deficiency type Expected: 07/04/2022 (Approximate), Expires: 07/06/2023 [place] Work Phone: Comment on above: Expected: 07/04/2022 (Approximate), Expi res: 07/06/2023 Start: 07-04-2022 DIABETES SCREEN DIABETES SCREEN [facility] Start: 07-04-2022 End: 06-06-2023 Ferritin [Mass/volume] in Serum or Plasma FERRITIN BLD Lab Routine Anemia due to vitamin B12 deficiency, unspecified B12 deficiency type Expected: 07/04/2022 (Approximate), Expires: 06/06/2023 [place] Work Phone: Comment on above: Expected: 07/04/2022 (Approximate), Expi res: 06/06/2023 Start: 07-04-2022 End: 06-06-2023 Folate [Mass/volume] in Serum or Plasma FOLATE SERUM Lab Routine Anemia due to vitamin B12 deficiency, unspecified B12 deficiency type Expected: 07/04/2022 (Approximate), Expires: 06/06/2023 [place] Work Phone: Comment on above: Expected: 07/04/2022 (Approximate), Expi res: 06/06/2023 Start: 07-04-2022 End: 06-06-2023 Iron and Iron binding capacity panel - Serum or Plasma IRON + TIBC Lab Routine Anemia due to vitamin B12 deficiency, unspecified B12 deficiency type Expected: 07/04/2022 (Approximate), Expires: 06/06/2023 [place] Work Phone: Comment on above: Expected: 07/04/2022 (Approximate), Expi res: 06/06/2023 Start: 06-29-2022 ADVANCE DIRECTIVE DISCUSSION ADVANCE DIRECTIVE DISCUSSION [facility] Start: 06-29-2022 DEPRESSION ASSESSMENT DEPRESSION ASSESSMENT [facility] Start: 2022 Abdominal aortic aneurysm screening Abdominal Aortic Aneurysm (AAA) Screening [facility] Start: 2022 ADVANCE DIRECTIVE DISCUSSION ADVANCE DIRECTIVE DISCUSSION [facility] Start: 2022 Fall Risk Screening Fall Risk Screening [facility] Start: 05-08-2022 End: 04-10-2023 CBC W Auto Differential panel - Blood CBC + DIFF Lab Routine Iron deficiency anemia, unspecified iron deficiency anemia type Anemia due to vitamin B12 deficiency, unspecified B12 deficiency type Expected: 05/08/2022 (Approximate), Expires: 04/10/2023 [place] Work Phone: Comment on above: Expected: 05/08/2022 (Approximate), Expi res: 04/10/2023 Start: 05-08-2022 End: 04-10-2023 Cobalamin (Vitamin B12) [Mass/volume] in Serum or Plasma VITAMIN B12 BLOOD Lab Routine Iron deficiency anemia, unspecified iron deficiency anemia type Anemia due to vitamin B12 deficiency, unspecified B12 deficiency type Expected: 05/08/2022 (Approximate), Expires: 04/10/2023 [place] Work Phone: Comment on above: Expected: 05/08/2022 (Approximate), Expi res: 04/10/2023 Start: 05-08-2022 End: 04-10-2023 Comprehensive metabolic 2000 panel - Serum or Plasma COMP METABOLIC PANEL Lab Routine Iron deficiency anemia, unspecified iron deficiency anemia type Anemia due to vitamin B12 deficiency, unspecified B12 deficiency type Expected: 05/08/2022 (Approximate), Expires: 04/10/2023 [place] Work Phone: Comment on above: Expected: 05/08/2022 (Approximate), Expi res: 04/10/2023 Start: 05-08-2022 End: 04-10-2023 Ferritin [Mass/volume] in Serum or Plasma FERRITIN BLD Lab Routine Iron deficiency anemia, unspecified iron deficiency anemia type Anemia due to vitamin B12 deficiency, unspecified B12 deficiency type Expected: 05/08/2022 (Approximate), Expires: 04/10/2023 [place] Work Phone: Comment on above: Expected: 05/08/2022 (Approximate), Expi res: 04/10/2023 Start: 05-08-2022 End: 04-10-2023 Folate [Mass/volume] in Serum or Plasma FOLATE SERUM Lab Routine Iron deficiency anemia, unspecified iron deficiency anemia type Anemia due to vitamin B12 deficiency, unspecified B12 deficiency type Expected: 05/08/2022 (Approximate), Expires: 04/10/2023 [place] Work Phone: Comment on above: Expected: 05/08/2022 (Approximate), Expi res: 04/10/2023 Start: 05-08-2022 End: 04-10-2023 Iron and Iron binding capacity panel - Serum or Plasma IRON + TIBC Lab Routine Iron deficiency anemia, unspecified iron deficiency anemia type Anemia due to vitamin B12 deficiency, unspecified B12 deficiency type Expected: 05/08/2022 (Approximate), Expires: 04/10/2023 [place] Work Phone: Comment on above: Expected: 05/08/2022 (Approximate), Expi res: 04/10/2023 Start: 04-10-2022 End: 04-10-2023 CBC W Auto Differential panel - Blood CBC + DIFF Lab Routine Iron deficiency anemia, unspecified iron deficiency anemia type Anemia due to vitamin B12 deficiency, unspecified B12 deficiency type Macrocytosis Expected: 04/10/2022, Expires: 04/10/2023 [place] Work Phone: Comment on above: Expected: 04/10/2022, Expires: 3 Start: 04-10-2022 End: 04-10-2023 Cobalamin (Vitamin B12) [Mass/volume] in Serum or Plasma VITAMIN B12 BLOOD Lab Routine Iron deficiency anemia, unspecified iron deficiency anemia type Anemia due to vitamin B12 deficiency, unspecified B12 deficiency type Macrocytosis Expected: 04/10/2022, Expires: 04/10/2023 [place] Work Phone: Comment on above: Expected: 04/10/2022, Expires: Start: 04-10-2022 End: 04-10-2023 Comprehensive metabolic 2000 panel - Serum or Plasma COMP METABOLIC PANEL Lab Routine Iron deficiency anemia, unspecified iron deficiency anemia type Anemia due to vitamin B12 deficiency, unspecified B12 deficiency type Macrocytosis Expected: 04/10/2022, Expires: 04/10/2023 [place] Work Phone: Comment on above: Expected: 04/10/2022, Expires: 3 Start: 04-10-2022 End: 04-10-2023 Ferritin [Mass/volume] in Serum or Plasma FERRITIN BLD Lab Routine Iron deficiency anemia, unspecified iron deficiency anemia type Anemia due to vitamin B12 deficiency, unspecified B12 deficiency type Macrocytosis Expected: 04/10/2022, Expires: 04/10/2023 [place] Work Phone: Comment on above: Expected: 04/10/2022, Expires: 3 Start: 04-10-2022 End: 04-10-2023 Folate [Mass/volume] in Serum or Plasma FOLATE SERUM Lab Routine Iron deficiency anemia, unspecified iron deficiency anemia type Anemia due to vitamin B12 deficiency, unspecified B12 deficiency type Macrocytosis Expected: 04/10/2022, Expires: 04/10/2023 [place] Work Phone: Comment on above: Expected: 04/10/2022, Expires: 3 Start: 04-10-2022 End: 06-10-2022 Haptoglobin [Mass/volume] in Serum or Plasma HAPTOGLOBIN BLD Lab Routine Iron deficiency anemia, unspecified iron deficiency anemia type Anemia due to vitamin B12 deficiency, unspecified B12 deficiency type Macrocytosis Expected: 04/10/2022, Expires: 06/10/2022 [place] Work Phone: Comment on above: Expected: 04/10/2022, Expires: 2 Start: 04-10-2022 End: 04-10-2023 Iron and Iron binding capacity panel - Serum or Plasma IRON + TIBC Lab Routine Iron deficiency anemia, unspecified iron deficiency anemia type Anemia due to vitamin B12 deficiency, unspecified B12 deficiency type Macrocytosis Expected: 04/10/2022, Expires: 04/10/2023 [place] Work Phone: Comment on above: Expected: 04/10/2022, Expires: 3 Start: 04-10-2022 End: 06-10-2022 Lactate dehydrogenase [Enzymatic activity/volume] in Serum or Plasma LD LACTATE DEHYDRO Lab Routine Iron deficiency anemia, unspecified iron deficiency anemia type Anemia due to vitamin B12 deficiency, unspecified B12 deficiency type Macrocytosis Expected: 04/10/2022, Expires: 06/10/2022 [place] Work Phone: Comment on above: Expected: 04/10/2022, Expires: 2 Start: 04-10-2022 End: 06-10-2022 RETIC COUNT RETIC COUNT Lab Routine Iron deficiency anemia, unspecified iron deficiency anemia type Anemia due to vitamin B12 deficiency, unspecified B12 deficiency type Macrocytosis Expected: 04/10/2022, Expires: 06/10/2022 [place] Work Phone: Comment on above: Expected: 04/10/2022, Expires: 2 Start: 02-27-2022 Influenza vaccination [facility] Start: 02-04-2022 End: 04-06-2022 Cancer Ag 19-9 [Units/volume] in Serum or Plasma CA 19-9 BLD Lab Routine Iron deficiency anemia, unspecified iron deficiency anemia type 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) Expected: 02/04/2022 (Approximate), Expires: 04/06/2022 [place] Work Phone: Comment on above: Expected: 02/04/2022 (Approximate), Expi res: 04/06/2022 Start: 02-04-2022 End: 12-05-2022 Carcinoembryonic Ag [Mass/volume] in Serum or Plasma CEA BLD Lab Routine Iron deficiency anemia, unspecified iron deficiency anemia type 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) Malignant neoplasm of body of pancreas (HCC) Expected: 02/04/2022 (Approximate), Expires: 12/05/2022 [place] Work Phone: Comment on above: Expected: 02/04/2022 (Approximate), Expi res: 12/05/2022 Start: 02-04-2022 End: 12-05-2022 CBC W Auto Differential panel - Blood CBC + DIFF Lab Routine Iron deficiency anemia, unspecified iron deficiency anemia type 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) Expected: 02/04/2022 (Approximate), Expires: 12/05/2022 [place] Work Phone: Comment on above: Expected: 02/04/2022 (Approximate), Expi res: 12/05/2022 Start: 02-04-2022 End: 12-05-2022 Comprehensive metabolic 2000 panel - Serum or Plasma COMP METABOLIC PANEL Lab Routine Iron deficiency anemia, unspecified iron deficiency anemia type 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) Expected: 02/04/2022 (Approximate), Expires: 12/05/2022 [place] Work Phone: Comment on above: Expected: 02/04/2022 (Approximate), Expi res: 12/05/2022 Start: 02-04-2022 End: 01-04-2023 Ct abdomen & pelvis w/contrast material CT ABD/PEL W IVCON Radiology Routine Iron deficiency anemia, unspecified iron deficiency anemia type 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) Expected: 02/04/2022 (Approximate), Expires: 01/04/2023 [place] Work Phone: Comment on above: Expected: 02/04/2022 (Approximate), Expi res: 01/04/2023 Start: 02-04-2022 End: 01-04-2023 Ct thorax w/contrast material CT CHEST W IVCON Radiology Routine Iron deficiency anemia, unspecified iron deficiency anemia type 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) Expected: 02/04/2022 (Approximate), Expires: 01/04/2023 [place] Work Phone: Comment on above: Expected: 02/04/2022 (Approximate), Expi res: 01/04/2023 Start: 01-09-2022 FUV, Provider: Irving Abrue, Status: Pen, Time: 11:15 AM FUV, Provider: Irving Abreu, Status: Pen, Time: 11:15 AM [place] [id number] DO Work Phone: Start: 11-14-2021 COVID-19 VACCINE (4 - Booster for Pfizer series) COVID-19 VACCINE (4 - Booster for Pfizer series) [facility] Start: 09-11-2021 COVID-19 VACCINE (4 - Booster for Pfizer series) COVID-19 VACCINE (4 - Booster for Pfizer series) [facility] Start: 09-11-2021 COVID-19 VACCINE (4 - Pfizer series) COVID-19 VACCINE (4 - Pfizer series) [facility] Start: 06-29-2021 DEPRESSION ASSESSMENT DEPRESSION ASSESSMENT [facility] Start: 12-11-2020 Adult depression screening assessment DEPRESSION SCREENING [facility] Start: 08-14-2018 PNEUMOCOCCAL (2 - PCV) PNEUMOCOCCAL (2 - PCV) [facility] ic Start: 2017 RSV patients and/or patients aged 60+ years (1 - 1-dose 60+ series) RSV patients and/or patients aged 60+ years (1 - 1-dose 60+ series) [facility] Start: 2017 RSV Vaccine (1 - 1-dose 60+ series) RSV Vaccine (1 - 1-dose 60+ series) [facility] Start: 2017 RSV Vaccine (1 - Risk 60-74 years 1-dose series) RSV Vaccine (1 - Risk 60-74 years 1-dose series) [facility] Start: 2012 PROSTATE CANCER SCREENING DISCUSSION PROSTATE CANCER SCREENING DISCUSSION [facility] Start: 2007 SHINGRIX VACCINE (1 of 2) SHINGRIX VACCINE (1 of 2) [facility] Start: 2007 Zoster Vaccines (1 of 2) Zoster Vaccines (1 of 2) [facility] Start: 2002 COLOGUARD (FIT-DNA) COLOGUARD (FIT-DNA) [facility] Start: 2002 Colonoscopy COLONOSCOPY [facility] Start: 2002 COLORECTAL CANCER SCREENING COLORECTAL CANCER SCREENING [facility] Start: [address] COLONOGRAPHY [facility] Start: 2002 FECAL OCCULT BLOOD FECAL OCCULT BLOOD [facility] Start: 2002 Screening for malignant neoplasm of colon [facility] Start: 2002 SIGMOIDOSCOPY SIGMOIDOSCOPY [facility] Start: 1992 Lipid 1996 panel - Serum or Plasma Lipid Screening [facility] Start: 1992 Lipid panel Lipid Screening [facility] Start: 1992 LIPID SCREEN LIPID SCREEN [facility] Start: 1979 DTaP/Tdap/Td Vaccines (1 - Tdap) DTaP/Tdap/Td Vaccines (1 - Tdap) [facility] Start: 1976 Administration of varicella zoster vaccine Zoster (Shingles) Vaccine (1 of 2) [facility] Start: 1976 DTaP,Tdap and Td Vaccines (1 - Tdap) DTaP,Tdap and Td Vaccines (1 - Tdap) [facility] Start: 1976 SHINGRIX VACCINE (1 of 2) SHINGRIX VACCINE (1 of 2) [facility] Start: 1976 Urine microalbumin profile [facility] Start: 1976 Urine screening for protein Diabetes: Urine Protein Screening [facility] Start: 1975 Adult BMI Screening Adult BMI Screening [facility] Start: 1975 Anxiety Screening Anxiety Screening [facility] Start: 1975 Depression Screening Depression Screening [facility] Start: 1975 Hepatitis C screening Hepatitis C Screening [facility] Start: 1975 HIV SCREENING HIV SCREENING [facility] Start: 1969 Depression Screening Depression Screening [facility] Start: 1969 Tobacco Screening Tobacco Screening [facility] Start: 1967 Diabetic foot examination Diabetes: Foot Exam [facility] Start: 1967 Glaucoma screening Diabetes: Retinopathy Screening [facility] Start: 1962 COVID-19 VACCINE (#1) COVID-19 VACCINE (#1) [facility] Start: 1957 ABDOMINAL AORTIC ANEURYSM SCREENING ABDOMINAL AORTIC ANEURYSM SCREENING [facility] Start: 1957 Abdominal aortic aneurysm screening Abdominal Aortic Aneurysm Screening [facility] Start: 1957 Creatinine measurement Creatinine Level [facility] Start: 1957 Echocardiography Echocardiogram [facility] Start: 1957 Hemoglobin A1c measurement Diabetes: Hemoglobin A1C [facility] Start: 1957 Lipid panel Lipid Panel [facility] Start: 1957 Medicare Annual Wellness Visit [facility] Start: 1957 Potassium measurement Potassium Level [facility] Start: 1957 Screening for malignant neoplasm of colon [facility] End: 03-10-2024 Cancer Ag 19-9 [Units/volume] in Serum or Plasma CA 19-9 BLD Lab Routine Cancer of ampulla of Vater (HCC) Anemia due to vitamin B12 deficiency, unspecified B12 deficiency type Iron deficiency anemia, unspecified iron deficiency anemia type Every 3 weeks for 18 Occurrences starting 03/11/2023 until 03/10/2024 [place] Work Phone: Comment on above: Every 3 weeks for 18 Occurrences startin g 03/11/2023 until 03/10/2024 End: 02-13-2023 CBC W Auto Differential panel - Blood CBC + DIFF Lab Routine Iron deficiency anemia, unspecified iron deficiency anemia type Macrocytosis Every other week for 20 Occurrences starting 02/13/2022 until 02/13/2023 [place] Work Phone: Comment on above: Every other week for 20 Occurrences shelia mckay 02/13/2022 until 02/13/2023 End: 03-10-2024 CBC W Auto Differential panel - Blood CBC + DIFF Lab Routine Cancer of ampulla of Vater (HCC) Anemia due to vitamin B12 deficiency, unspecified B12 deficiency type Iron deficiency anemia, unspecified iron deficiency anemia type Every 3 weeks for 18 Occurrences starting 03/11/2023 until 03/10/2024 [place] Work Phone: Comment on above: Every 3 weeks for 18 Occurrences startin g 03/11/2023 until 03/10/2024 End: 02-13-2023 Cobalamin (Vitamin B12) [Mass/volume] in Serum or Plasma VITAMIN B12 BLOOD Lab Routine Iron deficiency anemia, unspecified iron deficiency anemia type Macrocytosis Every other week for 20 Occurrences starting 02/13/2022 until 02/13/2023 [place] Work Phone: Comment on above: Every other week for 20 Occurrences shelia mckay 02/13/2022 until 02/13/2023 End: 03-10-2024 Cobalamin (Vitamin B12) [Mass/volume] in Serum or Plasma VITAMIN B12 BLOOD Lab Routine Cancer of ampulla of Vater (HCC) Anemia due to vitamin B12 deficiency, unspecified B12 deficiency type Iron deficiency anemia, unspecified iron deficiency anemia type Every 3 weeks for 18 Occurrences starting 03/11/2023 until 03/10/2024 [place] Work Phone: Comment on above: Every 3 weeks for 18 Occurrences startin g 03/11/2023 until 03/10/2024 Cobalamin (Vitamin B 12) [Mass/volume] in Serum or Plasma VITAMIN B12 Lab Routine 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) Iron deficiency anemia secondary to inadequate dietary iron intake Gastrointestinal hemorrhage associated with duodenitis 07/01/2024 1:54 PM [facility] End: 02-13-2023 Comprehensive metabolic 2000 panel - Serum or Plasma COMP METABOLIC PANEL Lab Routine Iron deficiency anemia, unspecified iron deficiency anemia type Macrocytosis Every other week for 20 Occurrences starting 02/13/2022 until 02/13/2023 [place] Work Phone: Comment on above: Every other week for 20 Occurrences shelia mckay 02/13/2022 until 02/13/2023 End: 03-10-2024 Comprehensive metabolic 2000 panel - Serum or Plasma COMP METABOLIC PANEL Lab Routine Cancer of ampulla of Vater (HCC) Anemia due to vitamin B12 deficiency, unspecified B12 deficiency type Iron deficiency anemia, unspecified iron deficiency anemia type Every 3 weeks for 18 Occurrences starting 03/11/2023 until 03/10/2024 [place] Work Phone: Comment on above: Every 3 weeks for 18 Occurrences startin g 03/11/2023 until 03/10/2024 Comprehensive metabo lic 2000 panel - Serum or Plasma [facility] End: 07-16-2024 EGD / Colonoscopy EGD / Colonoscopy GI Routine Iron deficiency anemia, unspecified iron deficiency anemia type History of gastric cancer Rectal bleeding 1 Occurrences starting 07/17/2023 until 07/16/2024 [facility] Work Phone: Comment on above: 1 Occurrences starting 07/17/2023 until 07/16/2024 End: 02-13-2023 Ferritin [Mass/volume] in Serum or Plasma FERRITIN BLD Lab Routine Iron deficiency anemia, unspecified iron deficiency anemia type Macrocytosis Every other week for 20 Occurrences starting 02/13/2022 until 02/13/2023 [place] Work Phone: Comment on above: Every other week for 20 Occurrences shelia mckay 02/13/2022 until 02/13/2023 End: 03-10-2024 Ferritin [Mass/volume] in Serum or Plasma FERRITIN BLD Lab Routine Cancer of ampulla of Vater (HCC) Anemia due to vitamin B12 deficiency, unspecified B12 deficiency type Iron deficiency anemia, unspecified iron deficiency anemia type Every 3 weeks for 18 Occurrences starting 03/11/2023 until 03/10/2024 [place] Work Phone: Comment on above: Every 3 weeks for 18 Occurrences startin g 03/11/2023 until 03/10/2024 Ferritin [Mass/volum e] in Serum or Plasma FERRITIN Lab Routine 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) Iron deficiency anemia secondary to inadequate dietary iron intake Gastrointestinal hemorrhage associated with duodenitis 07/01/2024 1:54 PM [facility] End: 02-13-2023 Folate [Mass/volume] in Serum or Plasma FOLATE SERUM Lab Routine Iron deficiency anemia, unspecified iron deficiency anemia type Macrocytosis Every other week for 20 Occurrences starting 02/13/2022 until 02/13/2023 [place] Work Phone: Comment on above: Every other week for 20 Occurrences star ting 02/13/2022 until 02/13/2023 End: 03-10-2024 Folate [Mass/volume] in Serum or Plasma FOLATE SERUM Lab Routine Cancer of ampulla of Vater (HCC) Anemia due to vitamin B12 deficiency, unspecified B12 deficiency type Iron deficiency anemia, unspecified iron deficiency anemia type Every 3 weeks for 18 Occurrences starting 03/11/2023 until 03/10/2024 [place] Work Phone: Comment on above: Every 3 weeks for 18 Occurrences startin g 03/11/2023 until 03/10/2024 Folate [Mass/volume] in Serum or Plasma FOLATE, SERUM Lab Routine 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) Iron deficiency anemia secondary to inadequate dietary iron intake Gastrointestinal hemorrhage associated with duodenitis 07/01/2024 1:54 PM [facility] End: 02-13-2023 Iron and Iron binding capacity panel - Serum or Plasma IRON + TIBC Lab Routine Iron deficiency anemia, unspecified iron deficiency anemia type Macrocytosis Every other week for 20 Occurrences starting 02/13/2022 until 02/13/2023 [place] Work Phone: Comment on above: Every other week for 20 Occurrences star ting 02/13/2022 until 02/13/2023 End: 03-10-2024 Iron and Iron binding capacity panel - Serum or Plasma IRON + TIBC Lab Routine Cancer of ampulla of Vater (HCC) Anemia due to vitamin B12 deficiency, unspecified B12 deficiency type Iron deficiency anemia, unspecified iron deficiency anemia type Every 3 weeks for 18 Occurrences starting 03/11/2023 until 03/10/2024 [place] Work Phone: Comment on above: Every 3 weeks for 18 Occurrences startin g 03/11/2023 until 03/10/2024 Iron and Iron bindin g capacity panel - Serum or Plasma IRON AND TIBC Lab Routine 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) Iron deficiency anemia secondary to inadequate dietary iron intake Gastrointestinal hemorrhage associated with duodenitis 07/01/2024 1:54 PM EST [facility] Microalbumin [Mass/volume] in Urine [facility] End: 07-16-2025 PET+CT Guidance for localization of tumor of Skull base to mid-thigh-- W 18F-FDG IV NM PET/CT SKULL-THIGH SUBSEQUENT Radiology Routine 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) Iron deficiency anemia secondary to inadequate dietary iron intake Gastrointestinal hemorrhage associated with duodenitis 1 Occurrences starting 06/16/2024 until 07/16/2025 [place] Work Phone: Comment on above: 1 Occurrences starting 06/16/2024 until 07/16/2025 PET+CT Guidance for localization of tumor of Skull base to mid-thigh-- W 18F-FDG IV NM PET/CT SKULL-THIGH SUBSEQUENT Radiology Routine 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) Iron deficiency anemia secondary to inadequate dietary iron intake Gastrointestinal hemorrhage associated with duodenitis 07/01/2024 3:17 PM EST [place] Work Phone: XR Cervical spine 5 Views [facility] Immunizations Immunization Date Immunization Notes Care Provider Srinivas waite 06-04-2023 influenza, high dose seasonal, preservative-free David Caputo Other [employer] Other 06-04-2023 influenza virus vaccine, unspecified formulation DO Rick Zapata Work Phone: [facility] 04-01-2022 Seasonal trivalent influenza vaccine, adjuvanted, preservative free Chair Phelan Work Phone: [facility] 04-01-2022 influenza virus vaccine, unspecified formulation Zahra May MD Work Phone: [facility] 07-17-2021 COVID-19 vaccine, ag e 12+ yr (PFIZER-BIONTECH - [place] TOP) Zahra May MD Work Phone: [facility] 04-04-2021 AS03 adjuvant Chair Phelan Work Phone: [facility] 04-04-2021 influenza virus vaccine, split virus (incl. purified surface antigen) David Caputo Other [facility] [employer] Other 04-04-2021 influenza virus vaccine, unspecified formulation DO Rick Zapata Work Phone: [facility] 04-04-2021 Seasonal trivalent influenza vaccine, adjuvanted, preservative free Zahra May MD Work Phone: [facility] 10-24-2020 COVID-19 vaccine, ag e 12+ yr (PFIZER-BIONTECH - PURPLE TOP) Zahra May MD Work Phone: [facility] 10-03-2020 COVID-19 vaccine, ag e 12+ yr (PFIZER-BIONTECH - PURPLE TOP) Zahra May MD Work Phone: [facility] 03-29-2020 influenza nasal, unspecified formulation Chair Phelan Work Phone: [facility] 03-29-2020 influenza virus vaccine, unspecified formulation [facility] Work Phone: 03-29-2020 influenza, seasonal, injectable Zahra May MD Work Phone: [facility] 03-22-2020 influenza virus vaccine, split virus (incl. purified surface antigen) David Caputo Other [employer] [facility] [employer] Other 03-22-2020 influenza virus vaccine, unspecified formulation DO Rick Zapata Work Phone: [facility] 03-22-2020 influenza, injectabl e, quadrivalent, contains preservative Zahra May MD Work Phone: [facility] 05-02-2019 influenza, injectabl e, quadrivalent, contains preservative Zahra May MD Work Phone: [facility] 03-29-2019 influenza nasal, unspecified formulation Chair Phelan Work Phone: [facility] 03-29-2019 influenza virus vaccine, unspecified formulation [facility] Work Phone: 03-29-2019 influenza, seasonal, injectable Zahra May MD Work Phone: [facility] 03-29-2018 influenza nasal, unspecified formulation Chair Phelan Work Phone: [facility] 03-29-2018 influenza virus vaccine, unspecified formulation [facility] Work Phone: 02-14-2018 influenza, injectabl e, quadrivalent, preservative free Zahra May MD Work Phone: [facility] 09-02-2017 tuberculin skin test ; unspecified formulation Dr. Adriane Espitia [facility] 09-01-2017 influenza, high-dose seasonal, quadrivalent, 0.7mL dose, preservative free Dr. Adriane Espitia [facility] 09-01-[address] Adriane Espitia [facility] 08-14-2017 pneumococcal polysaccharide vaccine, 23 valent Zahra May MD Work Phone: [facility] Work Phone: 04-22-2017 influenza virus vaccine, split virus (incl. purified surface antigen) David Caputo Other [facility] [employer] Other 04-22-2017 influenza virus vaccine, unspecified formulation DO Rick Aminpeyton Work Phone: [facility] 04-13-2017 influenza, injectabl e, quadrivalent, contains preservative Zahra May MD Work Phone: [facility] 03-29-2017 influenza nasal, unspecified formulation Chair Phelan Work Phone: [facility] 03-29-2017 influenza virus vaccine, unspecified formulation [facility] Caputo [facility] Work Phone: 03-03-2017 influenza, injectabl e, quadrivalent, preservative free Zahra May MD Work Phone: [facility] 07-30-2016 pneumococcal conjuga te vaccine, 13 valent David Caputo Work Phone: [facility] 04-29-2011 influenza nasal, unspecified formulation Chair Phelan Work Phone: [facility] 04-29-2011 influenza virus vaccine, unspecified formulation David Caputo Work Phone: [facility] 250 DO Work Phone: Payers Date Payer Category Payer Medicare [id number] 2023 Unknown [id number] 2023 Self-pay [id number] 2023 Unknown [id number] 2021 [place] [id number] 2021-Present [phone] [address] [place] [address] Medicaid [id number] 2021 Medicaid [id number] 2020 Medicare MEDICARE MEDICAR E A AND B [id number] 2020-Present [phone] [place] [address] Medicare [id number] 2020 Medicare [id number] 1959 Medicaid [id number] 1959 Medicare [id number] 1957 Unknown [id number] 93 1957 Unknown [id number] 93 1957 Unknown [id number] 93 1957 Unknown [id number] 93 1957 Unknown [id number] 93 1957 Unknown [id number] 93 1957 Unknown [id number] 56 1957 Unknown [id number] 56 1957 Unknown [id number] 244 Private Health Insurance [id number] Private Health Insurance [id number] Unknown Unknown [employer] BC/BS [id number] Unknown [id number] 31 Unknown [id number] 31 Unknown [id number] 31 Social History Date Type Detail Facility Start: 08-13-2017 End: 02-13-2022 Tobacco smoking status NHIS Ex-smoker [facility] End: 06-29-2010 History of tobacco use Current smoker [facility] End: 06-29-2010 History of tobacco use Cigarette Smoker [facility] Start: 08-13-2017 End: 02-13-2022 Tobacco use and exposure Smokeless tobacco non-user [facility] Start: 12-03-2021 End: 06-16-2024 Alcohol intake Current drinker of alcohol (finding) [facility] Start: 12-03-2021 End: 10-31-2022 Alcohol intake [facility] Start: 08-13-2017 History SDOH Alcohol Comment occasional beer [facility] Start: 1955 Sex Assigned At Not on file [facility] Start: 11-25-2021 End: 10-29-2023 Exposure to SARS-CoV-2 (event) Not sure [facility] Start: 10-31-2022 End: 11-28-2022 Sex Assigned At [facility] History of tobacco use Passive smoker [facility] Adult Depression Screening Assessment 0 [facility] Start: 1955 Sex Assigned At Male F [facility] Start: 01-27-2023 Unknown if ever smoked [facility] Start: 06-04-2023 End: 06-04-2023 Tobacco smoking status NHIS Never smoked tobacco (finding) [facility] Start: 10-29-2023 Alcoholic beverage intake Lifetime non-drinker (finding) [facility] Work Phone: Start: 05-06-2024 Sex Male (finding) [facility] Medical Equipment Procedure Code Equipment Code Equipment Origin al Text Equipment Identifier Dates Lancets 30G - Start: 03-17-2023 Lancets (Comfort Ez Lancets) 28 gauge misc Start: 11-16-2023 Lancets (Comfort Ez Lancets) 28 gauge misc Start: 11-16-2023 Lancets (Comfort Ez Lancets) 28 gauge misc Start: 11-16-2023 Clinical Notes 02-28-2020 to 07-15-2024 Livier Seay MA - 07/15/2024 2:37 PM ESTPatient InstructionsZahra May MD - 07/15/2024 1:40 PM Susan Breaux, RT(R) - 07/01/2024 1:30 PM Lona Mccollum RN - 07/01/2024 1:30 PM EST Note Date & Type Note Facility 07-15-2024 Note HNO ID: [id number] Author: LIVIER SEAY MA Service: ? Author Type: Director Of Patient Financial Services Type: Progress Notes Filed: 07/15/2024 14:39 Note Text: Patient Identification confirmed: yes. Injection given and documented on AUG per provider order. Livier Seay MA [facility] 07-15-2024 History of Present illness Narrative Patient Identification confirmed: yes. Injection given and documented on AUG per provider order. Livier Seay MA documented in this encounter [facility] 07-15-2024 Instructions Rona Cárdenas - 07/15/2024 2:30 PM EST B12 shot today and q 4 weeks Continue folic acid 1 mg daily as Rx'd Referral to general surgery at [facility] in 4 weeks Labs same day Continue following with Dr. Caputo for DMII management documented in this encounter [facility] 07-15-2024 History of Present illness Narrative Images from the original note were not included. NAME: Rocio Jackson CLINIC NO.: [id number] DATE OF SERVICE: July 15, 2024 (Abviviana) Some elements in this clinic note that are critical to medical decision making have been carefully reviewed and included from a prior clinic note dated: June 16, 2024 (Iftikhar) Referring Provider: Dr. Vanessa Bejarano Additional Clinicians involved in Rocio Jackson's care: Dr. David Caputo CC: Follow up on anemia. GI Bleed, Ampullary cancer. Diagnosis: 1. T3N1 Adenocarcioma of the ampulla [...] of recurrence. PLAN: B12 shot today and q 4 weeks Continue folic acid 1 mg daily as Rx'd Referral to general surgery at [facility] in 4 weeks Labs same day Continue following with Dr. Caputo for DMII management HPI: CASE HISTORY: Reverse Chronological Order 07/01/2024 - PET/CT: ABDOMEN/PELVIS: FDG avid thickened and dilated small segment of the small bowel in the right lower quadrant, possible lymphoma. No FDG avid adenopathy HEAD/NECK, CHEST, & MUSCULOSKELETAL: No FDG avid disease. 06/09/2024 - CT CAP: Chest: Development of multifocal groundglass opacities in the right lung likely infectious/inflammatory. Follow-up is recommended to ensure resolution. A/P: Persistent irregular wall thickening involving a segment of small bowel in the right lower quadrant. Lymphoma is of consideration. No metastatic disease in the abdomen or pelvis. 05/29/2024 - EGD/Colonoscopy: A. Terminal ileum, biopsy: Small bowel mucosa and Peyer's patch lymphoid tissue with no significant histologic abnormality 05/27/2024-05/31/2024 - Admitted at [facility], transferred to [facility] with lower GI bleed, hypotension, tachycardia - required 1 unit PRBC 03/03/2024 - CT CAP: Chest: No CT [...] Reyez) 09/30/2017 - Pancreas and duodenum, pancreaticoduodenectomy (D): Dr. 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 Metastatic adenocarcinoma involving three of eleven lymph nodes (3/11). Lymphovascular invasion and perineural invasion are seen. Surgical resection margins are free of tumor. Updated Visit, July 15, 2024: Rocio returns with his son for a follow up. Recent PET/CT shows an FDG avid thickened and dilated small segment of the small bowel in the right lower quadrant that may be lymphoma. I will refer him to general surgery at [facility]. He denies blood in his tool, endorses nausea/vomiting. WBC is decreased at 2.79 compared to 3.52 in 02/2024, HGB has improved. Updated Visit, June 16, 2024: Rocio and his son Rocio Ruby Return after a recent hospitalization at [facility]. I will need to request their records as he had a GI bleed and got 2 units PRBCs as well as upper and lower endoscopy. He seems stable now. CT shows irregular wall thickening involving a segment of small bowel in the right lower quadrant and radiology considered evaluating for possible lymphoma. Updated Visit, March 10, 2024: Rocio returns [...] open wounds. CTCAP done late December in [place] concerning for possible metastatic disease. Updated Visit, [...] 08, 2022: Rocio returns with his son oJaquin - his blood sugar was noted to [...] with his son Joaquin. Worked at a [employer] Doing well overall is at his baseline. [...] 2021: Wanted to re-establish care since his Dr. Retired from practice after leaving this practice.he [...] colonoscopy as well as reports from his horser up. His PFTs are pending, and he was [...] PERFORMANCE STATUS: 2 PHYSICAL EXAMINATION: Vitals: BP 94/63 Pulse 85 Temp (Src) 97.3 (Temporal) Resp 18 Wt 0 lb (0.0kg) SpO2 100% There is no height or weight on [...] with meals. folic acid 1 mg tablet take one tablet by mouth once daily wivkzn-qwneeadr-iqhbtur (ZENPEP) 25,000-79,000- 105,000 unit delayed release capsule Take 2 capsules by mouth three times a day with meals. larvua-abtrbtmi-qwqblwf (CREON 24) 24,000-76,000 -120,000 unit delayed release [...] guidelines LABORATORY VALUES: WBC (k/uL) Date Value 07/01/2024 2.79 (L) RBC (m/uL) Date Value 07/01/2024 3.30 (L) Hemoglobin (g/dL) Date Value 07/01/2024 11.1 (L) Hematocrit (%) Date Value 07/01/2024 33.3 (L) MCV (fL) Date Value 07/01/2024 100.9 (H) MCH (pg) Date Value 07/01/2024 33.6 MCHC (g/dL) Date Value 07/01/2024 33.3 RDW-CV (%) Date Value 07/01/2024 16.0 (H) Platelet Count (k/uL) Date Value 07/01/2024 227 MPV (fL) Date Value 07/01/2024 8.9 (L) Glucose (mg/dL) Date Value 07/01/2024 87 BUN (mg/dL) Date Value 07/01/2024 31 (H) Creatinine (mg/dL) Date Value 07/01/2024 0.60 (L) Sodium (mmol/L) Date Value 07/01/2024 137 Potassium (mmol/L) Date Value 07/01/2024 4.4 Chloride (mmol/L) Date Value 07/01/2024 103 CO2 (mmol/L) Date Value 07/01/2024 27 Protein, Total (g/dL) Date Value 07/01/2024 5.1 (L) Albumin (g/dL) Date Value 07/01/2024 2.7 (L) Calcium, Total (mg/dL) Date Value 07/01/2024 8.4 (L) Alkaline Phosphatase (U/L) Date Value 07/01/2024 104 Bilirubin, Total (mg/dL) Date Value 07/01/2024 0.3 AST (U/L) Date Value 07/01/2024 11 (L) ALT (U/L) Date Value 07/01/2024 10 DIAGNOSIS: (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) (primary encounter diagnosis) Plan: CONSULT TO GENERAL SURGERY (R93.89) Abnormal finding of diagnostic imaging Plan: CONSULT TO GENERAL SURGERY (D72.819) Leukopenia, unspecified type PAST MEDICAL HISTORY Diagnosis Date Anemia Anxiety Bleeding ulcer 11/15/2016 required 5 blood transfusions Coronary artery disease involving [place] coronary artery Diabetes mellitus (HCC) 2017 Duodenal cancer (HCC) Dyslipidemia Fatigue Glaucoma Hypertension Iron deficiency anemia secondary to inadequate dietary iron intake 09/10/2023 Myocardial infarction (HCC) 05/15/2011 PTSD (post-traumatic stress disorder) PAST SURGICAL HISTORY Procedure Laterality Date ANGIOPLASTY HX 05/15/2011 2 stents s/p [place];[facility] CHOLECYSTECTOMY 08/11/2017 [facility] COLONOSCOPY COLONOSCOPY PAST SURGICAL HISTORY OF Cardiac Stents x2 PAST SURGICAL HISTORY OF 09/2017 [place] PICC LINE INSERT/CONSULT 08/16/2017 Social History Tobacco [...] which included preparing to see the patient, qjgc-cj-dnbl patient care, completing clinical documentation, obtaining and/or reviewing separately obtained history, performing a medically appropriate examination, counseling and educating the patient/family/caregiver, ordering medications, tests, or procedures, independently interpreting results (not separately reported), communicating results to the patient/family/caregiver, and care coordination (not separately reported). Zahra May MD, CPE Hematology and Oncology Services Provided at: [facility], [place], [place] Scribe Attestation: This note was scribed by Rona Cárdenas on July 15, 2024 under the direction and supervision of Dr. Zahra May. I attest that all of the information documented is correct to the best of my knowledge. Provider Attestation: I, Zahra May MD, attest that all information documented by the above scribe is correct, and was supervised by me and under my direction. CC: Dr. David Caputo [address] [facility] [id number] documented in this encounter [facility] 07-15-2024 Note HNO ID: [id number] Author: ZAHRA MAY MD Service: ? Author Type: Physician Type: Progress Notes Filed: 07/16/2024 08:06 Note Text: NAME: Rocio Jackson [facility] NO.: [id number] DATE OF SERVICE: July 15, 2024 (Iftikhar) Some elements in this clinic note that are critical to medical decision making have been carefully reviewed and included from a prior clinic note dated: June 16, 2024 (Iftikhar) Referring Provider: Dr. Vanessa Bejarano Additional Clinicians involved in Rocio Jackson's care: Dr. David Caputo CC: Follow up on anemia. GI Bleed, Ampullary cancer. Diagnosis: 1. T3N1 Adenocarcioma of the ampulla [...] of recurrence. PLAN: B12 shot today and q 4 weeks Continue folic acid 1 mg daily as Rx'd Referral to general surgery at [facility] in 4 weeks Labs same day Continue following with Dr. Caputo for DMII management HPI: CASE HISTORY: Reverse Chronological Order 07/01/2024 - PET/CT: ABDOMEN/PELVIS: FDG avid thickened and dilated small segment of the small bowel in the right lower quadrant, possible lymphoma. No FDG avid adenopathy HEAD/NECK, CHEST, AND MUSCULOSKELETAL: No FDG avid disease. 06/09/2024 - CT CAP: Chest: Development of multifocal groundglass opacities in the right lung likely infectious/inflammatory. Follow-up is recommended to ensure resolution. A/P: Persistent irregular wall thickening involving a segment of small bowel in the right lower quadrant. Lymphoma is of consideration. No metastatic disease in the abdomen or pelvis. 05/29/2024 - EGD/Colonoscopy: A. Terminal ileum, biopsy: Small bowel mucosa and Peyer's patch lymphoid tissue with no significant histologic abnormality 05/27/2024-05/31/2024 - Admitted at [facility], transferred to [facility] with lower GI bleed, hypotension, tachycardia - required 1 unit PRBC 03/03/2024 - CT CAP: Chest: No CT [...] previous granulomatous disease. A/P: Nonspecific borderline mesenteric l (more content not included)... [facility] 07-01-2024 History of Present illness Narrative RADIOLOGY SERVICE PROGRESS NOTE SERVICE DATE: 07/01/2024 SERVICE TIME: 2:11 PM PATIENT IDENTITY VERIFICATION COMPLETED USING TWO (2) STANDARD IDENTIFIERS: Name and Date of confirmed by patient verbally POST EXAM PIV STATUS: Discontinued PROCEDURE TYPE: NM INJECT: PET/CT BODY SCAN. 5.7 mCi F18 FDG. No other medications given.. ADMINISTRATION TIME: 1406 PATIENT DISCHARGED TO: Ambulatory patient, left AL department area. Is this a therapy: No A Diagnostic radioactive procedure has taken place, with no further precautions necessary other than routine body substance precautions. More information regarding radiation safety can be found using this link: [email or web address] [email or web address] SIGNATURE: RT Jesus(R) PATIENT NAME: Rocio Jackson DATE: July 01, 2024 TIME: 2:11 PM PAGER/CONTACT #: Radiology Service Progress Note DATE OF SERVICE: July 01, 2024 TIME: 2:33 PM PATIENT WEIGHT: 112LBS PATIENT IDENTITY VERIFICATION COMPLETED USING TWO (2) STANDARD IDENTIFIERS: Name and Date of confirmed by patient verbally. FALL SCREENING: Has the patient had 2 falls in the last year or 1 fall with injury or currently using an Ambulatory Assistive Device (Walker, Cane, Wheelchair, Crutches, etc.)? No PATIENT GENDER DATA: Male ALLERGIES: Reviewed and unchanged CONTRAST ALLERGY: No EXAM: CT -CONTRAST INDUCED NEPHROPATHY RISK FACTORS: Not applicable CREATININE: Creatinine Date Value Ref Range Status 07/01/2024 0.60 (L) 0.73 - 1.22 mg/dL Final 03/03/2024 0.62 (L) 0.73 - 1.22 mg/dL Final 12/03/2023 0.78 0.73 - 1.22 mg/dL Final Estimated Glomerular Filtration Rate Date Value Ref Range Status 07/01/2024 106 >=60 mL/min/1.73m Final Comment: Estimated Glomerular Filtration [...] RESULTS: POC done: Yes, See Lab Tab July 01, 2024 TREATMENT: N/A IV SITE: Ambulatory: A peripheral IV was started in the Right forearm with a Angio cath: 22 gauge. IV SITE APPEARANCE: Clean,Dry and Intact SIGNATURE: Lona Garcia RN PATIENT NAME: Rocio Jackson DATE: July 01, 2024 TIME: 2:33 PM documented in this encounter [facility] 07-01-2024 Note HNO ID: [id number] Author: SUSAN PROCTOR RT(R) Service: ? Author Type: Technologist Type: Progress Notes Filed: 07/01/2024 14:12 Note Text: RADIOLOGY SERVICE PROGRESS NOTE SERVICE DATE: 07/01/2024 SERVICE TIME: 2:11 PM PATIENT IDENTITY VERIFICATION COMPLETED USING TWO (2) STANDARD IDENTIFIERS: Name and Date of confirmed by patient verbally POST EXAM PIV STATUS: Discontinued PROCEDURE TYPE: NM INJECT: PET/CT BODY SCAN. 5.7 mCi F18 FDG. No other medications given.. ADMINISTRATION TIME: 1406 PATIENT DISCHARGED TO: Ambulatory patient, left AL department area. Is this a therapy: No A Diagnostic radioactive procedure has taken place, with no further precautions necessary other than routine body substance precautions. More information regarding radiation safety can be found using this link: [email or web address] 20Diagnostic%20Nuclear%20Medicine%20 [email or web address] SIGNATURE: RT Jesus(R) PATIENT NAME: Rocio Jackson DATE: July 01, 2024 TIME: 2:11 PM PAGER/CONTACT #: [facility] 07-01-2024 Note HNO ID: [id number] Author: LONA GARCIA RN Service: ? Author Type: Registered Nurse Type: Progress Notes Filed: 07/01/2024 14:34 Note Text: Radiology Service Progress Note DATE OF SERVICE: July 01, 2024 TIME: 2:33 PM PATIENT WEIGHT: 112LBS PATIENT IDENTITY VERIFICATION COMPLETED USING TWO (2) STANDARD IDENTIFIERS: Name and Date of confirmed by patient verbally. FALL SCREENING: Has the patient had 2 falls in the last year or 1 fall with injury or currently using an Ambulatory Assistive Device (Walker, Cane, Wheelchair, Crutches, etc.)? No PATIENT GENDER DATA: Male ALLERGIES: Reviewed and unchanged CONTRAST ALLERGY: No EXAM: CT -CONTRAST INDUCED NEPHROPATHY RISK FACTORS: Not applicable CREATININE: Creatinine Date Value Ref Range Status 07/01/2024 0.60 (L) 0.73 - 1.22 mg/dL Final 03/03/2024 0.62 (L) 0.73 - 1.22 mg/dL Final 12/03/2023 0.78 0.73 - 1.22 mg/dL Final Estimated Glomerular Filtration Rate Date Value Ref Range Status 07/01/2024 106 >=60 mL/min/1.73m? Final Comment: Estimated Glomerular Filtration [...] RESULTS: POC done: Yes, See Lab Tab July 01, 2024 TREATMENT: N/A IV SITE: Ambulatory: A peripheral IV was started in the Right forearm with a Angio cath: 22 gauge. IV SITE APPEARANCE: Clean,Dry and Intact SIGNATURE: Lona Garcia RN PATIENT NAME: Rocio Jackson DATE: July 01, 2024 TIME: 2:33 PM [facility] 06-16-2024 History of Present illness Narrative Images from the original note were not included. NAME: Rocio Jackson [facility] NO.: [id number] DATE OF SERVICE: June 16, 2024 ([facility]) Some elements in this clinic note that are critical to medical decision making have been carefully reviewed and included from a prior clinic note dated: March 10, 2024 (Iftikhar) Referring Provider: Dr. Vanessa Bejarano Additional Clinicians involved in Rocio Jackson's care: Dr. David Caputo CC: Follow up on anemia. GI Bleed, Ampullary cancer. Diagnosis: 1. T3N1 Adenocarcioma of the ampulla [...] folate replacement. No evidence of recurrence. PLAN: Need EGD/Colonoscopy results from [facility] from April 2024 Need records of hospitalization as well - D/C summary etc. B12 shot on 04/01 and q 4 weeks Continue folic acid 1 mg daily as Rx'd PET/CT scans with labs repeated when approved. RTC 1 week after Continue following with Dr. Caputo for DMII management HPI: CASE HISTORY: Reverse Chronological Order 06/09/2024 - CT CAP: Chest: Development of multifocal groundglass opacities in the right lung likely infectious/inflammatory. Follow-up is recommended to ensure resolution. A/P: Persistent irregular wall thickening involving a segment of small bowel in the right lower quadrant. Lymphoma is of consideration. No metastatic disease in the abdomen or pelvis. 05/27/2024-05/31/2024 - Admitted at [facility], transferred to [facility] with lower GI bleed, hypotension, tachycardia - required 1 unit PRBC 03/03/2024 - CT CAP: Chest: No CT [...] margins are free of tumor. Updated Visit, June 16, 2024: Rocio and his son Rocio Ruby Return after a recent hospitalization at [facility]. I will need to request their records as he had a GI bleed and got 2 units PRBCs as well as upper and lower endoscopy. He seems stable now. CT shows irregular wall thickening involving a segment of small bowel in the right lower quadrant and radiology considered evaluating for possible lymphoma. Updated Visit, March 10, 2024: Rocio returns [...] open wounds. CTCAP done late December in [place] concerning for possible metastatic disease. Updated Visit, [...] with his son Joaquin. Worked at a [employer] Doing well overall is at his baseline. [...] 2021: Wanted to re-establish care since his Dr. Retired from practice after leaving this practice.he [...] colonoscopy as well as reports from his horser up. His PFTs are pending, and he was [...] PERFORMANCE STATUS: 2 PHYSICAL EXAMINATION: Vitals: BP 78/48[recheck[ Pulse 49 Temp (Src) 97.2 (Temporal) Resp 16 Ht 5' 7.244 (1.71m) Wt 0 lb [...] with meals. folic acid 1 mg tablet take one tablet by mouth once daily tamhel-cuuqioee-ikyrahn (ZENPEP) 25,000-79,000- 105,000 unit delayed release capsule Take 2 capsules by mouth three times a day with meals. haowsj-gjltejxt-foizyvg (CREON 24) 24,000-76,000 -120,000 unit delayed release [...] in the CT contrast administration guidelines link. (Patient not taking: Reported on 06/16/2024) enteric contrast (will be provided with radiology test) For CT CHESTABD/PEL W IVCON Routine order Administer, As Directed One Time Only, via Oral, Rectal, both Oral and Rectal, Enteric Tube, Stoma or Indwelling Catheter, Enteric Contrast as designated per enteric contrast guidelines (Patient not taking: Reported on 06/16/2024) iv contrast (will be provided with radiology [...] in the CT contrast administration guidelines link. (Patient not taking: Reported on 06/16/2024) enteric contrast (will be provided with radiology test) For CT CHESTABD/PEL W IVCON Routine order Administer, As Directed One Time Only, via Oral, Rectal, both Oral and Rectal, Enteric Tube, Stoma or Indwelling Catheter, Enteric Contrast as designated per enteric contrast guidelines (Patient not taking: Reported on 06/16/2024) LABORATORY VALUES: WBC (k/uL) Date Value 03/03/2024 [...] (primary encounter diagnosis) Plan: NM PET/CT SKULL-THIGH SUBSEQUENT, COMPLETE BLOOD COUNT AND DIFFERENTIAL, COMPREHENSIVE METABOLIC PANEL, IRON AND TIBC, FERRITIN, VITAMIN B12, FOLATE, SERUM (C80.1) Adenocarcinoma (HCC) Plan: NM PET/CT SKULL-THIGH SUBSEQUENT, COMPLETE BLOOD COUNT AND DIFFERENTIAL, COMPREHENSIVE METABOLIC PANEL, IRON AND TIBC, FERRITIN, VITAMIN B12, FOLATE, SERUM (D50.8) Iron deficiency anemia secondary to inadequate dietary iron intake Plan: NM PET/CT SKULL-THIGH SUBSEQUENT, COMPLETE BLOOD COUNT AND DIFFERENTIAL, COMPREHENSIVE METABOLIC PANEL, IRON AND TIBC, FERRITIN, VITAMIN B12, FOLATE, SERUM (K29.81) Gastrointestinal hemorrhage associated with duodenitis Plan: NM PET/CT SKULL-THIGH SUBSEQUENT, COMPLETE BLOOD COUNT AND DIFFERENTIAL, COMPREHENSIVE METABOLIC PANEL, IRON AND TIBC, FERRITIN, VITAMIN B12, FOLATE, SERUM PAST MEDICAL HISTORY Diagnosis Date Anemia Anxiety Bleeding ulcer 11/15/2016 required 5 blood transfusions Coronary artery disease involving [place] coronary artery Diabetes mellitus (HCC) 2017 Duodenal cancer (HCC) Dyslipidemia Fatigue Glaucoma Hypertension Iron deficiency anemia secondary to inadequate dietary iron intake 09/10/2023 Myocardial infarction (HCC) 05/15/2011 PTSD (post-traumatic stress disorder) PAST SURGICAL HISTORY Procedure Laterality Date ANGIOPLASTY HX 05/15/2011 2 stents s/p [place];[facility] CHOLECYSTECTOMY 08/11/2017 [facility] COLONOSCOPY COLONOSCOPY PAST SURGICAL HISTORY OF [facility] Social History Tobacco Use [...] Cancer Sister I spent a total of 40 minutes on the date of the service which included preparing to see the patient, orpj-hd-hnoz patient care, completing clinical documentation, obtaining and/or reviewing separately obtained history, performing a medically appropriate examination, counseling and educating the patient/family/caregiver, ordering medications, tests, or procedures, independently interpreting results (not separately reported), communicating results to the patient/family/caregiver, and care coordination (not separately reported). Zahra May MD, CPE Hematology and Oncology Services Provided at: [place], [place] CC: Dr. David Caputo [address] [facility] [address] Patient was recently hospitalized at [facility]. Lillian Tucker MA documented in this encounter [facility] 06-16-2024 Instructions Zahra May MD - 06/16/2024 3:40 PM EST Need EGD/Colonoscopy results from [facility] from April 2024 Need records of hospitalization as well - D/C summary etc. B12 shot on 04/01 and q 4 weeks Continue folic acid 1 mg daily as Rx'd PET/CT scans with labs repeated when approved. RTC 1 week after Continue following with Dr. Caputo for DMII management documented in this encounter [facility] 06-16-2024 Note HNO ID: [id number] Author: ZAHRA MAY MD Service: ? Author Type: Physician Type: Progress Notes Filed: 06/16/2024 17:36 Note Text: NAME: Rocio Jackson [facility] NO.: [id number] DATE OF SERVICE: June 16, 2024 ([place]) Some elements in this clinic note that are critical to medical decision making have been carefully reviewed and included from a prior clinic note dated: March 10, 2024 (Iftikhar) Referring Provider: Dr. Vanessa Bejarano Additional Clinicians involved in Rocio Jackson's care: Dr. David Caputo CC: Follow up on anemia. GI Bleed, Ampullary cancer. Diagnosis: 1. T3N1 Adenocarcioma of the ampulla [...] folate replacement. No evidence of recurrence. PLAN: Need EGD/Colonoscopy results from [facility] from April 2024 Need records of hospitalization as well - D/C summary etc. B12 shot on 04/01 and q 4 weeks Continue folic acid 1 mg daily as Rx'd PET/CT scans with labs repeated when approved. RTC 1 week after Continue following with Dr. Caputo for DMII management HPI: CASE HISTORY: Reverse Chronological Order 06/09/2024 - CT CAP: Chest: Development of multifocal groundglass opacities in the right lung likely infectious/inflammatory. Follow-up is recommended to ensure resolution. A/P: Persistent irregular wall thickening involving a segment of small bowel in the right lower quadrant. Lymphoma is of consideration. No metastatic disease in the abdomen or pelvis. 05/27/2024-05/31/2024 - Admitted at [facility], transferred to [facility] with lower GI bleed, hypotension, tachycardia - required 1 unit PRBC 03/03/2024 - CT CAP: Chest: No CT [...] chest abdomen and pelvis with IV contrast: (more content not included)... [facility] 06-16-2024 Note HNO ID: [id number] Author: LILLIAN TUCKER MA Service: ? Author Type: Director Of Patient Financial Services Type: Progress Notes Filed: 06/16/2024 17:36 Note Text: Patient was recently hospitalized at [facility]. Lillian Tucker MA [facility] 06-09-2024 History of Present illness Narrative Radiology Service Progress Note PATIENT NAME: Rocio Jackson DATE OF SERVICE: June 09, 2024 TIME: 1:46 PM PATIENT IDENTITY VERIFICATION COMPLETED USING TWO [...] PATIENT PRESENTS WITH AN IMPLANTABLE OR ATTACHED TANNERY WORKER: No RADIOLOGY DEPARTMENT: CT; Exam(s) Completed: Chest Abdomen Pelvis PERIPHERAL IV DATA: Site assessment: Clean,Dry and Intact, Site disposition Discontinued SIGNED BY: Susan Proctor RT(R) June 09, 2024 1:46 PM Radiology Service Progress Note DATE OF SERVICE: June 09, 2024 TIME: 1:46 PM PATIENT WEIGHT:unable to weigh pt PATIENT IDENTITY VERIFICATION COMPLETED USING TWO (2) [...] RESULTS: POC done: Yes, See Lab Tab June 09, 2024 TREATMENT: N/A IV SITE: Ambulatory: A peripheral IV was started in the Right forearm with a Angio cath: 22 gauge. IV SITE APPEARANCE: Clean,Dry and Intact SIGNATURE: Fer Degroot RN PATIENT NAME: Rocio Jackson DATE: June 09, 2024 TIME: 1:46 PM documented in this encounter [facility] 06-09-2024 Note HNO ID: [id number] Author: SUSAN PROCTOR RT(R) Service: ? Author Type: Technologist Type: Progress Notes Filed: 06/09/2024 13:46 Note Text: Radiology Service Progress Note PATIENT NAME: Rocio Jackson DATE OF SERVICE: June 09, 2024 TIME: 1:46 PM PATIENT IDENTITY VERIFICATION COMPLETED USING TWO [...] PATIENT PRESENTS WITH AN IMPLANTABLE OR ATTACHED TANNERY WORKER: No RADIOLOGY DEPARTMENT: CT; Exam(s) Completed: Chest Abdomen Pelvis PERIPHERAL IV DATA: Site assessment: Clean,Dry and Intact, Site disposition Discontinued SIGNED BY: RT Jesus(R) June 09, 2024 1:46 PM [facility] 06-09-2024 Note HNO ID: [id number] Author: FER DEGROOT RN Service: ? Author Type: Registered Nurse Type: Progress Notes Filed: 06/09/2024 13:47 Note Text: Radiology Service Progress Note DATE OF SERVICE: June 09, 2024 TIME: 1:46 PM PATIENT WEIGHT:unable to weigh pt PATIENT IDENTITY VERIFICATION COMPLETED USING TWO (2) [...] RESULTS: POC done: Yes, See Lab Tab June 09, 2024 TREATMENT: N/A IV SITE: Ambulatory: A peripheral IV was started in the Right forearm with a Angio cath: 22 gauge. IV SITE APPEARANCE: Clean,Dry and Intact SIGNATURE: Fer Degroot RN PATIENT NAME: Rocio Jackson DATE: June 09, 2024 TIME: 1:46 PM [facility] 05-31-2024 Note Met with patient and his son. They are declining home healthcare at this time and plan on following up with therapies as an outpatient. [facility] 05-31-2024 Note Physical Therapy Missed Therapy Documentation 05/31/24 1520 General Missed Time Reason Other (Comment) Subjective Per nursing staff, pt's son is present for pt's home discharge this afternoon; requesting OP therapy. No PT performed. 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 He has history of prior GA and stenting in 2010 and was found to have severe LV dysfunction follow-up stress perfusion imaging in 2018 revealed improved LV function with EF around 40% and anterior septal scar. Labs in the ER revealed creatinine 0.54 BUN 37 calcium 7 with albumin which was not checked his hemoglobin was 7.8 WBC 3.15 MCV 103.1 and platelet [address] abdomen done which shows either inflammatory or ischemic changes of the small bowel. He does admit having weight loss of about 15 to 20 pounds in past several months with poor appetite and postprandial abdominal pain # Acute blood loss anemia with melena: - CT A/P showed Abnormal exam with focal transitional area and localized distal small bowel mucosal wall thickening and enhancement associated with mesenteric swirling. Findings are likely sequelae of bowel obstruction with ischemic, inflammatory or infectious etiology. - EGD showed no identified source of bleeding. Colonoscopy was unremarkable. - Oral PPI BID. - GI recommended outpatient VCE. # Chronic A.fib, currently in NSR: - Resume Eliquis. # CAD s/p PCI: - Continue Toprol, Lipitor and Eliuqis. # HypoK s/p replacement. 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 Harshal MD, Rocio is advised to follow up with you within 1-2 weeks. Items to follow up in ambulatory setting: None Follow-up with: Gastroenterology Scheduled appointments: Future Appointments Date Time Provider Department Center 06/30/2024 3:00 PM Karla Saeed NP [facility] Your medication list START taking these medications Instructions Last Dose Given Next Dose Due pantoprazole 40 mg EC tablet Commonly known as: ProtoNix Start taking on: June 01, 2024 Take 1 tablet (40 mg) by mouth before breakfast. Do not crush, chew, or split. Do not start before June 01, 2024. CONTINUE taking these medications Instructions Last Dose Given Next Dose Due atorvastatin 40 mg tablet Commonly known as: Lipitor baclofen 10 mg tablet Commonly known as: Lioresal FLUoxetine 40 mg capsule Commonly known as: PROzac folic acid 1 mg tablet Commonly known as: Folvite mirtazapine 30 mg tablet Commonly known as: Remeron omeprazole [address] capsule Commonly known as: PriLOSEC rOPINIRole 1 mg tablet Commonly known as: Requip STOP taking these medications metoclopramide 10 mg tablet Commonly known as: Reglan Where to Get Your Medications These [facility] [address] [facility] [address] pantoprazole 40 mg EC tablet Rocio has No Known Allergies. Disposition: Home or Self Care () Discharge Condition: Stable Code Status: Prior Diagnostic Results Hematology: Results from last 7 days Lab Units 05/30/24 1716 05/30/24 1210 05/30/24 0723 05/29/24 1159 05/29/24 0613 WBC AUTO 10*3/uL -- -- 2.64* -- 2.09* HEMOGLOBIN g/dL 9.7* 10.5* 9.6* < > 10.3* HEMATOCRIT % 28.7* 31.5* 30.0* < > 31.8* MCV fL -- -- 101.7* -- 99.4* PLATELETS AUTO 10*3/uL -- -- 245 -- 217 < > = values in this interval not displayed. Chemistry: Results from last 7 days Lab Units 05/30/24 0723 05/29/24 0613 05/28/24 0352 SODIUM mmol/L 136 137 135* POTASSIUM mmol/L 3.4* 3.7 4.0 CHLORIDE mmol/L 110* 108* 109* CO2 mmol/L 23 22 20* BUN mg/dL 10 18 32* CREATININE mg/dL 0.45* 0.44* 0.46* GLUCOSE mg/dL 107* 98 75 CALCIUM mg/dL 7.2* 7.6* 7.1* Results from last 7 days Lab Units 05/30/24 0723 05/29/24 0613 05/28/24 0352 AMMONIA umol/L -- 27 -- AST U/L 12* 20 14 ALT U/L 9 10 8 ALK PHOS U/L 82 97 90 BILIRUBIN TOTAL mg/dL 0.2* 0.3 0.6 Test Results P (more content not included)... [facility] 05-31-2024 Note [facility] has declined the referral. Sent a referral to [facility]. [facility] 05-31-2024 Note -------- Attestation signed by Storm Wright MD at 05/31/2024 5:11 PM Patient was seen by resident staff. I reviewed with resident staff overnight events, exam and laboratory findings, assessment and management plan. Storm Wright MD -------- [facility] General Surgery DAILY PROGRESS NOTE Subjective Patient seen bedside. No acute overnight events. Denies dizziness or headache or vomiting. Has appetite, ate dinner last night. 4 bowel movement yesterday per nurse, no gross blood noted. Hemoglobin remaining stable. Objective Vitals: Vitals: 05/31/24 0507 BP: 129/79 Pulse: 74 Resp: 15 Temp: 36.1 ???C (97 ???F) SpO2: 97% I/O last 3 completed shifts: In: 930 (14.8 mL/kg) [P.O.:480; IV Piggyback:450] Out: - (0 mL/kg) Weight: 62.7 kg No intake/output data recorded. Physical Exam Vitals and nursing note reviewed. Constitutional: Appearance: Normal appearance. HENT: Head: Normocephalic and atraumatic. Eyes: Extraocular Movements: Extraocular movements intact. Conjunctiva/sclera: Conjunctivae normal. Cardiovascular: Rate and Rhythm: Normal rate and regular rhythm. Pulmonary: Effort: Pulmonary effort is normal. Abdominal: General: Abdomen is flat. There is no distension. Palpations: Abdomen is soft. Tenderness: There is no abdominal tenderness. There is no guarding. Skin: General: Skin is warm and dry. Neurological: General: No focal deficit present. Mental Status: He is alert. Psychiatric: Mood and Affect: Mood normal. Behavior: Behavior normal. Labs: Results from last 7 days Lab Units 05/30/24 1716 05/30/24 1210 05/30/24 0723 05/30/24 0032 05/29/24 1745 05/29/24 1159 05/29/24 0613 05/28/24 1202 05/28/24 0352 05/28/24 0117 05/27/242016 WBC AUTO 10*3/uL -- -- 2.64* -- -- -- 2.09* -- 3.40* 3.38* 3.15* HEMOGLOBIN g/dL 9.7* 10.5* 9.6* 9.6* 9.9* < > 10.3* < > 9.3* 8.7* 7.8* HEMATOCRIT % 28.7* 31.5* 30.0* 28.4* 28.9* < > 31.8* < > 28.6* 26.4* 23.6* PLATELETS AUTO 10*3/uL -- -- 245 -- -- -- 217 -- 115* 222 220 < > = values in this interval not displayed. Results from last 7 days Lab Units 05/30/24 0723 05/29/24 0613 05/28/24 0352 05/27/242016 SODIUM mmol/L 136 137 135* 137 POTASSIUM mmol/L 3.4* 3.7 4.0 4.1 CO2 mmol/L 23 22 20* 22 BUN mg/dL 10 18 32* 37* CREATININE mg/dL 0.45* 0.44* 0.46* 0.54* 0.54* Medications: cefTRIAXone, 2 g, intravenous, q24h influenza, 0.5 mL, intramuscular, During hospitalization pantoprazole, 40 mg, intravenous, q24h DONNY Imaging: Complete Echo (TTE) w/wo Imaging Agent, Strain, 3D, Bubble Study 1 [facility] Heart Station [address] [place] [address] [phone] (fax) Echocardiogram-[facility] Name: ROCIO JACKSON Study Date: 05/30/2024 02:06 PM B/P: 123 mmHg/77 mmHg HR: 77 bpm Date of : 1955 Location: [facility] Height: 69 in. Age: 68 year(s) Patient Room: [facility] Weight: 142 lb. Gender: Male Patient Status: InPt BSA: 1.79 m2 Indication: Shortness of Breath, Cardiogenic shock Examination: Echocardiogram (Complete), Lumason Contrast Image Quality: Technically Difficult study Patient Consent: Procedure explained to patient Exam Details Contrast: I.V. dose of Lumason Conclusions Left Ventricle: The left ventricle appears normal in size. Global left ventricular systolic function is moderately reduced. The EF is 35 % visually. Left Atrium: The left atrium appears normal in size. Overall Conclusions: Due to suboptimal imaging Lumason contrast was administered for opacification and better delineation of endocardial borders. Poor sound transmission precludes full evaluation of the valves. A FABIAN is recommended for better assessment. Measurements Left Ventricle Label Value Normal Value LVOT VTI 19.6 cm (18cm - 22cm) LVOT PGmax 3 mmHg LVEF visual 35 % LVOT PGmean 2 mmHg Aortic Valve Label Value Normal Value AV DVI 0.9 AV VTI 19 cm Mitral Valve Label Value Normal Value MV E Vmax 0.65 m/s MV A Vmax 0.8 m/s MV E/A 0.81 MV E/E' lateral 11.3 MV E' lateral 0.06 m/s Aorta Label Value Normal Value AoRoot, 2D 3.9 cm (1.4cm - 3.8cm) Valvular Assessment LVOT 0.7 - 1.1 m/sec Aortic Valve 1.0 - 1.7 m/sec Mitral Valve 0.6 - 1.3 m/sec Tricuspid Valve 0.3 - 0.7 m/sec Pulmonic Valve 0.6 - 0.9 m/sec Regurgitation No Trivial Trivial Stenosis No Max Velocity 0.88 m/sec 0.98 m/s 0.65 m/sec Max Gradient 4.00 mmHg Mean Gradient 2.00 mmHg Findings Left Ventricle: The left ventricle appears normal in size. Global left ventricular systolic function is moderately reduced. The EF is 35 % visually. The basal anteroseptal, mid anteroseptal, mid inferoseptal, apical anterior, apical septal, apical inferior and apex left ventricular wall segments are hypokinetic. All remaining scored lef (more content not included)... 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 No I (social work customer operations intern) met with patient to introduce self and conduct an assessment. Patient stated that he lives with his son and daughter who provide him assistance. Patient stated that at home, he uses a walker and a shower chair. He also has a cane but he does not use it. When asked if he could utilize any resources for paying bills, he responded that he would like some resources for food pantries. I delivered some resources back to his room after this meeting. PT/OT recommended SNF at discharge. I brought the patient a list of facilities, but he politely declined. He stated that he was once at [facility] and did not want to go back and he just wants to go home with his son and daughter who provide him assistance. I suggested that he receives [facility] services if he goes home, and he stated that he has utilized [facility] and would like a referral sent back to them. I facilities the referral to [facility] via [facility], awaiting response. [facility] 05-30-2024 Note Physical Therapy Physical Therapy Evaluation Patient Name: Rocio Joe TorresVentura : 1955 Today's Date: 05/30/2024 Time In: 1028 Time Out: 1105 Pt Summary: Pt is 68 y.o male transferred to [facility] with c/o 3-day history of melena and maroon-colored stool. Found to be hypotensive and anemic at an outside hospital. Pt has history of adenocarcinoma s/p Whipple 2017. EGD performed in Jul 2023 - unremarkable. Pending colonoscopy. General Family/Caregiver Present: No Subjective: Session okay per RN. Pt supine in bed upon arrival, requesting to sit up and eat. Agreeable to mobility with PT. Performed bed mobility and transfer this date. Up in recliner chair with food tray and call light nearby. PT Diagnosis: Decreased functional mobility Patient Active Problem List Diagnosis GI bleed Atherosclerotic heart disease of [place] coronary artery without angina pectoris CHF (congestive heart failure) ([facility]) Type II diabetes mellitus ([facility]) Former smoker Essential hypertension Gastro-esophageal reflux disease without esophagitis PAF (paroxysmal atrial fibrillation) ([facility]) History reviewed. No pertinent past medical history. History reviewed. No pertinent surgical history. Precautions Precautions Medical Precautions: bed alarm, chair alarm, fall risk, IV, telemetry, heel protectors Pain Pain Assessment Pain Assessment: 0-10 (Endorses BLE aching ) Pain Score: Not given for pain Pain Interventions: Ambulation/increased activity, Repositioned Cognition Cognition Overall Cognitive Status: Impaired Arousal/Alertness: Appropriate responses to stimuli Orientation Level: Oriented to person, Oriented to place, Oriented to time Following Commands: Follows one step commands with increased time, Follows one step commands with repetition Safety Judgment: Decreased awareness of need for assistance, Decreased awareness of need for safety Awareness of Errors: Decreased awareness of errors Deficits: Decreased awareness of deficits Attention Span: Attends with cues to redirect Memory: Decreased recall of precautions Problem Solving: Assistance required to identify errors made, Assistance required to generate solutions, Assistance required to implement solutions Communication: Intact Cognition Comments: Frequent cues for safety throughout session. Pt endorses feeling scared during mobility requiring consistent education throughout session General Assessment General Assessment Hearing: Mild [place] Skin Integrity: Mepilex to bilateral heels Hand Dominance: Right Home Living Home Living Type of Home: House Lives With: Family (2 adult children. Daughter home 19/01 and provides pt total care) Home Adaptive Equipment: Walker rolling, Cane, Wheelchair-manual Home Layout: Two level, Full bath main level, Able to live on main level with bedroom/bathroom Home Access: Stairs to enter without rails Entrance Stairs-Number of Steps: 3-4 Bathroom Shower/Tub: Walk-in shower Bathroom Toilet: Standard Bathroom Equipment: Shower chair without back Prior Level of Function Prior Function Prior Functional Mobility: Transfers only (To/from wheelchair to go to dining room table each night) Receives Help From: Family ADL Assistance: Needs assistance (Pt endorses sponge bathing at baseline, using brief for toileting tasks, assist to dress self, and states he is unable to feed himself without assist) Homemaking Assistance: Needs assistance Prior Function Comments: Pt endorses being bedbound recently aside from daily transfer 1x to wheelchair. Requires physical assist for all care Vision Basic Assessment Vision - Basic Assessment Current Vision: Wears glasses all the time Activity Tolerance Activity Tolerance Endurance: Stage II Stage II (METs 1.4-2.0) - Sittin-20 mins Number of Rest Breaks: (Multiple) Activity Tolerance Comments: Vitals WNL throughout session. Demos increased anxious behaviors with mobility requiring frequent cues and education throughout session General Assessments Perception Inattention/Neglect: Cues to maintain midline in sitting Initiation: Appears intact Motor Planning: Appears intact Coordination Movements are Fluid and Coordinated: No Postural Control Posture Assessment: Increased forward flexed posture sitting EOB Static Sitting Balance Static Sitting-Balance Support: Right upper extremity supported, Left upper extremity supported, Feet supported Static Sitting-Level of Assistance: Moderate assistance, Contact guard Static Sitting-Comment/Number of Minutes: CGA to modA throughout. Demos significant posterior lean. Able to maintain with CGA when given Esperanza Stedy bar to reach forward and hold onto Dynamic Sitting Balance Dynamic Sitting-Balance Support: Right upper extremity supported, Left upper extremity supported, Feet supported Dynamic Sitting-Balance: Forward lean Dynamic Sitting Balance (more content not included)... [facility] 05-30-2024 Note Occupational Therapy Occupational Therapy Evaluation Patient Name: Rocio Jackson : 1955 Today's Date: 05/30/2024 Start Time 1028 Stop Time 1105 Time Calculation (min) 37 min OT Evaluation Time Entry OT Evaluation (Moderate) Time Entry 27 OT Therapeutic Procedures Time Entry Therapeutic Activity Time Entry 10 OT Discharge Recommendations: long term facility placement General Subjective: I feel like I'm sliding Pt pleasant and cooperative Family/Caregiver Present: No Objective: RN ok'd pt for therapy this date, pt agreeable. Co-eval with PT. Pt supine in bed upon arrival, retired to seated in recliner upon exit. Alarm on, RN aware, call light within reach, all needs addressed. Activity Orders: No restrictions Present Illness 68 year-old male admitted 05/27/24 from OSH with melena, hypotension, tachycardia. Found GI bleed, possible SBO, acute anemia, hemorrhagic shock. EGD completed on 05/29/24 with no significant findings. Colonoscopy not completed / poor prep. OT Diagnosis Decreased functional independence and performance of ADLs. Patient Active Problem List Diagnosis GI bleed Atherosclerotic heart disease of [place] coronary artery without angina pectoris CHF (congestive heart failure) ([facility]) Type II diabetes mellitus ([facility]) Former smoker Essential hypertension Gastro-esophageal reflux disease without esophagitis PAF (paroxysmal atrial fibrillation) ([facility]) History reviewed. No pertinent past medical history. History reviewed. No pertinent surgical history. Precautions Precautions Medical Precautions: bed alarm, chair alarm, fall risk, IV, telemetry Pain Pain Assessment Pain Assessment: (Pt reports chronic aching to BLE, did not rate) Pain Interventions: Ambulation/increased activity, Repositioned Cognition Cognition Overall Cognitive Status: Impaired Arousal/Alertness: Appropriate responses to stimuli Orientation Level: Oriented to person, Oriented to place, Oriented to situation Following Commands: Follows one step commands with increased time, Follows one step commands with repetition Safety Judgment: Decreased awareness of need for assistance Awareness of Errors: Decreased awareness of errors Deficits: Decreased awareness of deficits Attention Span: Attends with cues to redirect Memory: Decreased recall of precautions Problem Solving: Assistance required to identify errors made, Assistance required to generate solutions, Assistance required to implement solutions Communication: Intact Cognition Comments: Pt appeared anxious throughout session, required encouragement and reassurance for participation. Cues provided for safety awareness, proper positioning, initation, sequencing with fair carryover General Assessment General Assessment Hearing: Mild [place] Skin Integrity: Mepilex to bilateral heels Hand Dominance: Right Home Living Home Living Type of Home: House Lives With: Family (2 children able to assist 24/) Home Adaptive Equipment: Walker rolling, Cane, Wheelchair-manual Home Layout: Two level, Full bath main level, Able to live on main level with bedroom/bathroom Home Access: Stairs to enter without rails Entrance Stairs-Number of Steps: 3-4 Bathroom Shower/Tub: Walk-in shower Bathroom Toilet: Standard Bathroom Equipment: Shower chair without back Prior Level of Function Prior Function Prior Functional Mobility: Transfers only (pt initially reports use of RW for mobility, later states family transfers him to/from [facility] and requires assist to propel) Receives Help From: Family ADL Assistance: Needs assistance Bath: (bed bath) Toileting: (briefs) Feeding: (daughter assists with self-feeding, pt endorses difficulty grasping items) Homemaking Assistance: Needs assistance Prior Function Comments: Pt reports recently bedbound, does not get OOB much and has to rely on family to get in/out of [facility] and in/out of home, reports family bumps him up stairs in [facility] Static Sitting Balance Static Sitting Balance Static Sitting-Balance Support: Feet supported, Right upper extremity supported, Left upper extremity supported Static Sitting-Level of Assistance: Minimum assistance (progressed to CGA/SBA at times) Static Sitting-Comment/Number of Minutes: Pt demo'd posterior lean requiring cues to correct Dynamic Sitting Balance Dynamic Sitting Balance Dynamic Sitting-Balance Support: Feet supported, Right upper extremity supported, Left upper extremity supported Dynamic Sitting Balance-Level of Assistance: Minimum assistance Static Standing Balance Static Standing Balance Static Standing-Balance Support: Right upper extremity supported, Left upper extremity supported, With device (Esperanza Stedy) Static Standing-Level of Assistance: Moderate assistance (x2 person) Static Standing-Comment/Number of Minutes: <10 seconds Dynamic Standing Balance Dynamic Standi (more content not included)... [facility] 05-30-2024 Note Hospital Medicine Daily Progress Note - 05/30/2024 10:30 AM; Room: 5154/5154-01 Admission: 05/27/2024 7:12 PM; Length of stay: 3 days THE HOSPITALIST TEAM PREFERS TO USE [employer] FOR NON-URGENT COMMUNICATION 7AM-7PM. IF I DO NOT RESPOND WITHIN 20 MINUTES OR URGENT MATTERS, PLEASE CALL THROUGH THE ADJUNCT SPANISH INSTRUCTOR. FROM 7PM-7AM, PLEASE PAGE [phone](COVR). Code Status: DNR CC-A Barriers to Discharge: GI bleed evaluation Expected Discharge Date: TBD Discharge Destination: home Overview oRcio Jackson is a 68 y.o. 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 His son took him to an outside ED where he was found to be hypotensive and with a severe acute anemia of Hg 7.4 g/dl ( baseline around 10 g/dl). He was transfused 1 unit of packed RBCs. CTAP with IV contrast done and showed focal transitional area and localized distal small bowel mucosal wall thickening and enhancement associated with this enteric swirling that can be likely due to bowel obstruction with ischemic/inflammatory or infectious etiology. Lactate was normal. GI and General surgery consulted. Subjective seen and evaluated at bedside. Denies headache vision changes chest pain shortness of breath cough sputum nausea vomiting. Patient had EGD yesterday, colonoscopy could not be done because of poor bowel prep. Physical Exam Visit Vitals BP 105/66 (BP Location: Right arm, Patient Position: Lying) Pulse 64 Temp 36.3 ???C (97.3 ???F) (Temporal) Resp 15 Intake/Output Summary (Last 24 hours) at 05/30/2024 1030 Last data filed at 05/29/2024 1744 Gross per 24 hour Intake 880 ml Output -- Net 880 ml Vitals reviewed. Constitutional: Comments: Ill appearing elderly white male, appears older than stated age, awake alert HENT: Head: Normocephalic and atraumatic. Nose: Nose normal. Mouth: Mucous membranes are moist. Pharynx: Oropharynx is clear. Eyes: Extraocular Movements: Extraocular movements intact, Conjunctiva/sclera: no conjunctival pallor. Pupils: Pupils are equal, round, and reactive to light. Cardiovascular: Rate and Rhythm: Normal rate and regular rhythm. Pulmonary: Effort: Pulmonary effort is normal. Breath sounds: Normal breath sounds. Abdominal: General: Abdomen is flat. Bowel sounds are normal. Palpations: Abdomen is soft. Musculoskeletal: General: Normal range of motion. Cervical back: Normal range of motion and neck supple. No rigidity. Skin: Capillary Refill: Capillary refill takes less than 2 seconds. Comments: Bruising extremities Neurological: Mental Status: He is alert. Mental status is at baseline. Psychiatric: Behavior: Behavior normal. Estimated body mass index is 21.06 kg/m??? as calculated from the following: Height as of this encounter: 1.753 m (5' 9 ). Weight as of this encounter: 64.7 kg (142 lb 10.2 oz). Active Inpatient Problems Principal Problem: GI bleed Hemorrhagic Shock Assessment and Plan GI bleed/Melena Acute Blood loss anemia Hemorrhagic shock - Resolved post PRBC transfusion H/O iron deficiency anemia/ Folate & B12 deficiency anemia Paroxysmal atrial fibrillation on chronic Eliquis treatment- Held AC Type 2 diabetes mellitus - on Jardiance and Glipizide 5 mg BID Essential hypertension Mixed Hyperlipidemia History of ampulla of Vater adenocarcinoma -s/p Whipple's procedure & Completed adjuvant chemotherapy in 2018 History of coronary artery disease Chronic anticoagulation - with eliquis leukopenia Hypokalemia PLAN: CT A& P with IV contrast done and showed focal transitional area and localized distal small bowel mucosal wall thickening and enhancement associated with this enteric swirling that can be likely due to bowel obstruction with ischemic/inflammatory or infectious etiology. Lactate normal BP and Hg improved and remains stable post PRBC transfusion General surgery consulted - Suggested no acute intervention Gastroenterology consulted S/p EGD - : Stomach congestion in the region of fundus and post surgical changes. Healthy duodenal limb and anastomosis site. Colonoscopy not completed due to poor bowel prep. Reach out to GI to see if they are planning colonoscopy today. Continue to hold anticoagulation Started on ceftriaxone and Flagyl, continue for today Continue Protonix Hold home meds for now pending procedure Replace electrolytes as needed. Potassium is 3.4. Will check phosphorus and magnesium CODE STATUS- DNR CCA Malnutrition Attestation: No dietitian assessment is available at this time. VTE Prophylaxis: GI Bleed, on eliquis at home- held Scheduled Meds cefTRIAXone, 2 g, intravenous, q24h influ (more content not included)... [facility] 05-30-2024 Note [facility] Teaching GI Ser vice Consult Gastroenterology/Hepatology Progress Note IDENTIFYING DATA PATIENT: Rocio Jackson ADMIT DATE: 05/27/2024 TIME OF EVALUATION: 05/30/2024 9:20 AM HOSPITAL STAY: LOS: 3 days REASON FOR HOSPITALIZATION: GI bleeding SUBJECTIVE/INTERVAL HISTORY Rocio Jackson's overnight events were reviewed. No acute events overnight, patient denies abdominal pain, nausea or vomiting. Hgb 9.6 with no overt bleeding. Reviewed EGD/colonoscopy findings with patient and plan for outpatient VCE, patient verbalized understanding. OBJECTIVE MEDICATIONS SCHEDULED: @MEDSCURRENTMD@ PRNs: acetaminophen, 650 mg, q6h PRN Physical VITALS: BP 105/66 (BP Location: Right arm, Patient Position: Lying) Pulse 64 Temp 36.3 ???C (97.3 ???F) (Temporal) Resp 15 Ht 1.753 m (5' 9 ) Wt 64.7 kg (142 lb 10.2 oz) SpO2 97% BMI 21.06 kg/m??? GEN: Alert and oriented x3, NAD HEENT: Atraumatic, normocephalic CV: No edema visualized PULM: Respirations even and unlabored ABD: Soft, non-tender, non-distended NEURO: Moves all 4 extremities spontaneously, answers questions appropriately LABS AND IMAGING CBC: Lab Results Component Value Date WBC 2.09 (L) 05/29/2024 RBC 3.20 (L) 05/29/2024 HGB 9.6 (L) 05/30/2024 HCT 28.4 (L) 05/30/2024 MCV 99.4 (H) 05/29/2024 RDW 18.6 (H) 05/29/2024 PLT 217 05/29/2024 CMP: Lab Results Component Value Date NA 136 05/30/2024 K 3.4 (L) 05/30/2024 CL 110 (H) 05/30/2024 CO2 23 05/30/2024 BUN 10 05/30/2024 PROT 4.2 (L) 05/30/2024 IMAGING: Esophagogastroduodenoscopy (EGD) Procedure Note 05/29/2024 Impression: Normal esophagus Stomach exam was positive for congestion in the fundus and surgical changes. Healthy duodenal limb and anastomosis site Healthy efferent and afferent small bowel limbs and anastomosis site Recommendations: Resume regular diet Will proceed with colonoscopy ASSESSMENT AND PLAN Rocio Jackson is a 68 y.o. 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 The patient is a poor historian and history was provided by medical team, chart and the patient himself. Patient presented to an outside hospital with a 3-day history of melena that turned out to maroon-colored stool on the last day for up to his presentation. His son took him to an outside hospital where he was found to be hypotensive and had a hemoglobin of 7.4. His last known baseline was around 10. Therefore, patient was transferred to our facility for GI evaluation as a case of GI bleed. Upon admission: Patient was tachycardic with a borderline blood pressure. He was transfused 1 unit of packed RBCs. CTAP with IV contrast done and showed focal transitional area and localized distal small bowel mucosal wall thickening and enhancement associated with this enteric swirling that can be likely due to bowel obstruction with ischemic/inflammatory or infectious etiology. It is worth mentioning that the patient was following up with [facility]. He had EGD and colonoscopy done in July 2023 for anemia and they were unremarkable. CTAP also done in August and February 2024 showed some mesenteric findings described as moderate lobular appearing wall thickening involving a segment of the small bowel in the right lower quadrant that were stable on prior exam August. Assessment GI bleeding EGD/colonoscopy without significant findings Patient had a history of few days of melena that turned into maroon-colored stool. He was transferred from [facility] due to GI bleed and hemodynamic instability. Blood pressure improved after receiving 1 unit of blood and resuscitation. CTAP showed findings suggestive of distal small bowel mucosal wall thickening that could be sequela of inflammatory, ischemic or infectious etiology. Acute blood loss anemia Hemoglobin upon presentation 7.8 g/dL. Baseline around 9 g/dL 2 months ago. Most likely secondary to GI bleeding. Small bowel wall thickening on CT scan CTAP with IV contrast showed focal transitional area and localized distal small bowel mucosal wall thickening and enhancement associated with mesenteric swirling. Findings are concerning for possible bowel obstruction with ischemic changes, inflammatory or infectious etiology. History of adenocarcinoma of the ampulla of Vater s/p Whipple disease: Patient underwent Whipple procedure in 2018 and completed adjuvant chemotherapy in December 2017 with Xeloda and Gemza Plan Plan for outpatient VCE for further assessment of GI bleeding, anemia Trend H&H and transfuse as needed Monitor for overt bleeding GI will respectfully sign off; however, we are readily available if additional questions or concerns arise. We will arrange for outpatien (more content not included)... [facility] 05-30-2024 Note -------- Attestation signed by Storm Wright MD at 05/30/2024 9:54 PM Attending attestation: GC: I personally saw this patient on the day of the encounter, performed the figueroa portion(s) of the service and participated in the management and confirm the resident's documentation. Please note there may be an additional personal documentation from me. Additional Comments: #Small bowel obstruction: clinically resolved, abdomen soft nondistended, nontender. Tolerated bowel prep. Ok to have regular diet. Monitor CBC as WBC level was low yesterday. -------- [facility] General Surgery DAILY PROGRESS NOTE Subjective Patient seen bedside. No acute overnight events. Had bowel movement yesterday, does not recall there being any blood. Patient states he had dinner last night and ate it completely. Denies abdominal pain/discomfort, nausea or vomiting. Hgb has remained stable. 10 > 9.9 > 9.6 Objective Vitals: Vitals: 05/30/24 0400 BP: 109/75 Pulse: 64 Resp: 16 Temp: 36.4 ???C (97.6 ???F) SpO2: 98% I/O last 3 completed shifts: In: 1573.4 (24.3 mL/kg) [P.O.:880; I.V.:693.4 (10.7 mL/kg)] Out: - (0 mL/kg) Weight: 64.7 kg No intake/output data recorded. Physical Exam Physical Exam Vitals and nursing note reviewed. Constitutional: Appearance: Normal appearance. HENT: Head: Normocephalic and atraumatic. Eyes: Extraocular Movements: Extraocular movements intact. Conjunctiva/sclera: Conjunctivae normal. Cardiovascular: Rate and Rhythm: Normal rate and regular rhythm. Pulmonary: Effort: Pulmonary effort is normal. Abdominal: General: Abdomen is flat. There is no distension. Palpations: Abdomen is soft. Tenderness: There is no abdominal tenderness. There is no guarding. Skin: General: Skin is warm and dry. Neurological: General: No focal deficit present. Mental Status: He is alert and oriented to person, place, and time. Psychiatric: Mood and Affect: Mood normal. Behavior: Behavior normal. Labs: Results from last 7 days Lab Units 05/30/24 0032 05/29/24 1745 05/29/24 1159 05/29/24 0613 05/28/24 2342 05/28/24 1202 05/28/24 0352 05/28/24 0117 05/27/242016 WBC AUTO 10*3/uL -- -- -- 2.09* -- -- 3.40* 3.38* 3.15* HEMOGLOBIN g/dL 9.6* 9.9* 10.0* 10.3* 10.2* < > 9.3* 8.7* 7.8* HEMATOCRIT % 28.4* 28.9* 29.9* 31.8* 31.4* < > 28.6* 26.4* 23.6* PLATELETS AUTO 10*3/uL -- -- -- 217 -- -- 115* 222 220 < > = values in this interval not displayed. Results from last 7 days Lab Units 05/29/24 0613 05/28/24 0352 05/27/242016 SODIUM mmol/L 137 135* 137 POTASSIUM mmol/L 3.7 4.0 4.1 CO2 mmol/L 22 20* 22 BUN mg/dL 18 32* 37* CREATININE mg/dL 0.44* 0.46* 0.54* 0.54* Medications: cefTRIAXone, 2 g, intravenous, q24h influenza, 0.5 mL, intramuscular, During hospitalization pantoprazole, 40 mg, intravenous, q24h DONNY Imaging: EGD Table formatting from the original result was not included. Esophagogastroduodenoscopy (EGD) Procedure Note Procedure: EGD Indications: Melena Sedation: MAC Medications: No administrations occurring from 825 to 908 on 05/29/24 Attending Physician: Sarthak Reyes MD Machine Umbrella Tipper: Shiela Castillo MD Procedure Details: Informed consent was obtained for the procedure, including sedation. Risks of infection, perforation, hemorrhage, adverse drug reaction, and aspiration were discussed. The patient was placed in the left lateral decubitus position. The patient was monitored continuously with ECG tracing, pulse oximetry, blood pressure monitoring, and direct observation. The gastroscope was inserted into the mouth and advanced under direct vision to second portion of the duodenum. A careful inspection was made as the gastroscope was withdrawn, including a retroflexed view of the proximal stomach; findings and interventions are described below. Appropriate photodocumentation was obtained. Specimens: Complications: None Estimated blood loss: None Disposition: Inpatient washburn Condition: Stable Findings: Normal esophagus. GE junction at 40 cm. Surgical changes consistent with a history of Whipple surgery. There was a diffuse congestion in the fundus of the stomach The afferent limb was examined and the examination was unremarkable. Anastomosis site was healthy The efferent limb was examined and the examination was unremarkable. Anastomosis site was healthy Impression: Normal esophagus Stomach exam was positive for congestion in the fundus and surgical changes. Healthy duodenal limb and anastomosis site Healthy efferent and afferent small bowel limbs and anastomosis site Recommendations: Resume regular diet Will proceed with colonoscopy Attending Attestation: I was present and scrubbed for the entire procedure. Assessment/Plan Rocio A Fris (more content not included)... [facility] 05-29-2024 Note Hospital Medicine Daily Progress Note - 05/29/2024 11:55 AM; Room: 5154/5154-01 Admission: 05/27/2024 7:12 PM; Length of stay: 2 days THE HOSPITALIST TEAM PREFERS TO USE [employer] CHAT FOR NON-URGENT COMMUNICATION 7AM-7PM. IF I DO NOT RESPOND WITHIN 20 MINUTES OR URGENT MATTERS, PLEASE CALL THROUGH THE [employer]. FROM 7PM-7AM, PLEASE PAGE [phone](COVR). Code Status: DNR CC-A Barriers to Discharge: GI bleed evaluation Expected Discharge Date: TBD Discharge Destination: home Overview Rocio Jackson is a 68 y.o. 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 His son took him to an outside ED where he was found to be hypotensive and with a severe acute anemia of Hg 7.4 g/dl ( baseline around 10 g/dl). He was transfused 1 unit of packed RBCs. CTAP with IV contrast done and showed focal transitional area and localized distal small bowel mucosal wall thickening and enhancement associated with this enteric swirling that can be likely due to bowel obstruction with ischemic/inflammatory or infectious etiology. Lactate was normal. GI and General surgery consulted. Subjective He continued to have small amounts of rectal bleeding since yesterday afternoon, serial Hg remained stable S/p urgent EGD today which showed Stomach congestion in the region of fundus and post surgical changes. Healthy duodenal limb and anastomosis site. Colonoscopy - Poor bowel prep. VSS Physical Exam Visit Vitals BP 107/64 (BP Location: Right arm, Patient Position: Lying) Pulse 68 Temp 36.6 ???C (97.9 ???F) (Temporal) Resp 16 Intake/Output Summary (Last 24 hours) at 05/29/2024 1155 Last data filed at 05/29/2024 0922 Gross per 24 hour Intake 1493.39 ml Output -- Net 1493.39 ml Physical Exam: Vitals reviewed. Constitutional: Comments: Ill appearing elderly white male, appears older than stated age, awake alert HENT: Head: Normocephalic and atraumatic. Nose: Nose normal. Mouth: Mucous membranes are moist. Pharynx: Oropharynx is clear. Eyes: Extraocular Movements: Extraocular movements intact, Conjunctiva/sclera: no conjunctival pallor. Pupils: Pupils are equal, round, and reactive to light. Cardiovascular: Rate and Rhythm: Normal rate and regular rhythm. Pulmonary: Effort: Pulmonary effort is normal. Breath sounds: Normal breath sounds. Abdominal: General: Abdomen is flat. Bowel sounds are normal. Palpations: Abdomen is soft. Musculoskeletal: General: Normal range of motion. Cervical back: Normal range of motion and neck supple. No rigidity. Skin: Capillary Refill: Capillary refill takes less than 2 seconds. Comments: Bruising extremities Neurological: Mental Status: He is alert. Mental status is at baseline. Psychiatric: Behavior: Behavior normal. Estimated body mass index is 21.13 kg/m??? as calculated from the following: Height as of this encounter: 1.753 m (5' 9 ). Weight as of this encounter: 64.9 kg (143 lb 1.3 oz). Active Inpatient Problems Principal Problem: GI bleed Hemorrhagic Shock Assessment and Plan GI bleed/Melena Acute Blood loss anemia Hemorrhagic shock - Resolved post PRBC transfusion H/O iron deficiency anemia/ Folate & B12 deficiency anemia Paroxysmal atrial fibrillation on chronic Eliquis treatment- Held AC Type 2 diabetes mellitus - on Jardiance and Glipizide 5 mg BID Essential hypertension Mixed Hyperlipidemia History of ampulla of Vater adenocarcinoma -s/p Whipple's procedure & Completed adjuvant chemotherapy in 2018 History of coronary artery disease Chronic anticoagulation - with eliquis PLAN: CT A& P with IV contrast done and showed focal transitional area and localized distal small bowel mucosal wall thickening and enhancement associated with this enteric swirling that can be likely due to bowel obstruction with ischemic/inflammatory or infectious etiology. Lactate normal BP and Hg improved and remains stable post PRBC transfusion General surgery consulted - Suggested no acute intervention Gastroenterology consulted S/p EGD this morning - urgent EGD today which showed Stomach congestion in the region of fundus and post surgical changes. Healthy duodenal limb and anastomosis site. Colonoscopy not completed due to poor bowel prep Continue to hold anticoagulation Started on ceftriaxone and Flagyl, continue for today Continue Protonix Hold home meds for now pending procedure CODE STATUS- DNR CCA Malnutrition Attestation: No dietitian assessment is available at this time. VTE Prophylaxis: GI Bleed, on eliquis at home- held Scheduled Meds bisacodyl, 10 mg, oral, BID cefTRIAXone, 2 g, intravenous, q24h inf (more content not included)... [facility] 05-29-2024 Note Patient: Rocio Saeed Procedure Summary Date: 05/29/24 Room / Location: [facility] Main Operating Room Anesthesia Start: 824 Anesthesia Stop: 921 Procedure: EGD Diagnosis: GI bleed Scheduled Providers: Sarthak Reyes MD Responsible Provider: Austin Ferrer MD Anesthesia Type: general ASA Status: 3 - Emergent Anesthesia Type: general Vitals Value Taken Time BP 97/61 05/29/24921 Temp 36.5 05/29/24921 Pulse 70 05/29/24921 Resp 11 05/29/24921 SpO2 98 05/29/24921 Anesthesia Post Evaluation Patient location during evaluation: PACU Patient participation: complete - patient participated Level of consciousness: awake and alert Pain score: 0 Pain management: adequate Multimodal analgesia pain management approach Airway patency: patent Two or more strategies used to mitigate risk of obstructive sleep apnea Cardiovascular status: hemodynamically stable Respiratory status: acceptable, room air, spontaneous ventilation and nonlabored ventilation Hydration status: euvolemic Patient is hemodynamically stable and is able to be discharged from PACU per anesthesia protocol. No notable events documented. [facility] 05-29-2024 Note Patient: Rocio Saeed Procedure Information Date/Time: 05/29/24829 Scheduled providers: Sarthak Reyes MD Procedure: EGD Location: [facility] Main Operating Room Relevant Problems Anesthesia (within normal limits) Cardio (+) Atherosclerotic heart disease of [place] coronary artery without angina pectoris (S/p stenting x2) (+) CHF (congestive heart failure) ([facility]) (Echocardiogram not performed) (+) Essential hypertension (+) PAF (paroxysmal atrial fibrillation) ([facility]) (Afib with RVR on EKG this admission) Endo (+) Type II diabetes mellitus ([facility]) (Reports on oral medications) GI (+) Gastro-esophageal reflux disease without esophagitis (Daily PPI) Digestive (+) GI bleed Other (+) Former smoker Results from last 7 days Lab Units 05/29/24 0613 WBC AUTO 10*3/uL 2.09* HEMOGLOBIN g/dL 10.3* HEMATOCRIT % 31.8* PLATELETS AUTO 10*3/uL 217 Results from last 7 days Lab Units 05/29/24 0613 SODIUM mmol/L 137 POTASSIUM mmol/L 3.7 CHLORIDE mmol/L 108* CO2 mmol/L 22 BUN mg/dL 18 CREATININE mg/dL 0.44* CALCIUM mg/dL 7.6* TOTAL PROTEIN g/dL 4.7* BILIRUBIN TOTAL mg/dL 0.3 ALK PHOS U/L 97 ALT U/L 10 AST U/L 20 GLUCOSE mg/dL 98 Encounter Date: 05/27/24 ECG 12 lead Result Value Ventricular Rate 145 QRS DURATION 70 QT Interval 258 QTC CALCULATION(BAZETT) 400 R-[place] 19 T Wave [place] 124 Impression Atrial fibrillation with rapid ventricular response Low voltage QRS Septal infarct , age undetermined Abnormal ECG No previous ECGs available Confirmed by Barrera Schneider ([id number]) on 05/27/2024 9:34:37 PM No echo is system. Clinical information reviewed: Tobacco Allergies Meds Med Hx Surg Hx Fam Hx Soc Hx Physical Exam Airway Mallampati: II TM distance: >3 FB Neck ROM: full Cardiovascular Rhythm: irregular Rate: normal Dental - normal exam Comments: Upper: various fragments of teeth Pulmonary Breath sounds clear to auscultation Abdominal - normal exam Anesthesia Plan ASA 3 - emergent MAC The patient is not a current smoker. intravenous induction Postoperative administration of opioids is intended. Anesthetic plan and risks discussed with patient. Use of blood products discussed with patient who consented to blood products. Plan discussed with attending. Additional Equipment Requests [facility] 05-29-2024 Note -------- Attestation signed by Storm Wright MD at 05/29/2024 7:42 PM Patient was seen by resident staff. I reviewed with resident staff overnight events, exam and laboratory findings, assessment and management plan. Storm Wright MD Patient tolerated bowel prep overnight with numerous bowel movements that were reported as non bloody. Continues to have nontender abdominal exam. Serum lactate normal. WBC low uncertain etiology. Ok to try diet if ok by GI team. General surgery will follow closely and monitor patient's bowel function. -------- [facility] General Surgery DAILY PROGRESS NOTE Subjective Patient seen and examined at bedside. Some confusion overnight, labs were ordered by primary team. Denies abdominal pain. Continued melena. Objective Vitals: Vitals: 05/29/24 0400 BP: 120/81 Pulse: 80 Resp: 18 Temp: 36.6 ???C (97.8 ???F) SpO2: 100% I/O last 3 completed shifts: In: 2900 (44.7 mL/kg) [P.O.:700; Blood:1450; IV Piggyback:750] Out: - (0 mL/kg) Weight: 64.9 kg No intake/output data recorded. Physical Exam Physical Exam Constitutional: General: He is not in acute distress. Appearance: He is ill-appearing. HENT: Head: Normocephalic. Cardiovascular: Rate and Rhythm: Normal rate. Pulmonary: Effort: Pulmonary effort is normal. Abdominal: General: Abdomen is flat. There is no distension. Palpations: Abdomen is soft. Tenderness: There is no abdominal tenderness. There is no guarding or rebound. Skin: General: Skin is warm. Neurological: Mental Status: Mental status is at baseline. Labs: Results from last 7 days Lab Units 05/29/24 0613 05/28/24 2342 05/28/24 1806 05/28/24 1202 05/28/24 0352 05/28/24 0117 05/27/242016 WBC AUTO 10*3/uL 2.09* -- -- -- 3.40* 3.38* 3.15* HEMOGLOBIN g/dL 10.3* 10.2* 10.3* 10.1* 9.3* 8.7* 7.8* HEMATOCRIT % 31.8* 31.4* 30.8* 29.9* 28.6* 26.4* 23.6* PLATELETS AUTO 10*3/uL 217 -- -- -- 115* 222 220 Results from last 7 days Lab Units 05/29/24 0613 05/28/24 0352 05/27/242016 SODIUM mmol/L 137 135* 137 POTASSIUM mmol/L 3.7 4.0 4.1 CO2 mmol/L 22 20* 22 BUN mg/dL 18 32* 37* CREATININE mg/dL 0.44* 0.46* 0.54* 0.54* Medications: bisacodyl, 10 mg, oral, BID cefTRIAXone, 2 g, intravenous, q24h influenza, 0.5 mL, intramuscular, During hospitalization metroNIDAZOLE, 500 mg, intravenous, BID pantoprazole, 40 mg, intravenous, q24h DONNY Imaging: CT transfer of outside films This order has been auto-finalized and does not contain a result. CT abdomen pelvis w IV contrast Narrative: CT ABDOMEN PELVIS W IV CONTRAST 05/27/2024 9:42 PM CLINICAL INDICATION: GI bleed with hypotension and tachycardia TECHNIQUE: Multiple detector CT axial slices of the abdomen and pelvis were obtained with IV contrast. Multiplanar reformats were performed and viewed on a separate workstation and reviewed to further define anatomy and possible pathology. All CT scans at this facility use dose modulation, iterative reconstruction, and/or weight based dosing when appropriate to reduce radiation dose to as low as reasonably achievable COMPARISON: Same day exam at 11:53 AM FINDINGS: There is severe coronary artery calcifications with no gross cardiomegaly or pericardial effusion. There are a few calcified infracarinal lymph nodes likely benign granulomas. Evaluation is compromised by motion artifact. There is mild pneumobilia with surgical changes of cholecystectomy. Otherwise liver parenchyma is unremarkable. Spleen and both adrenal glands are unremarkable. There is diffuse pancreatic atrophy with numerous pancreatic duct dilatation. Both kidneys are grossly unremarkable as left-sided extrarenal pelvis. Urinary bladder is adequately distended and grossly unremarkable. There is significantly abnormal exam primarily of the distal small bowel loops with localized area of swirling mesentery and coarse mucosal wall thickening with localized obstruction and dilatation of the proximal bowel loops. Findings could be sequelae of ischemic, inflammatory or infectious etiology. Clinical correlation is advised. The remaining bowel loops are grossly unremarkable. There are a few nonspecific mesenteric lymph nodes likely reactive basis [place] is grossly pathological by size criteria. There is moderate intimal calcification of the abdominal aorta. Celiac trunk, SMA and renal vessels are widely patent. Portal vessels are widely patent and grossly unremarkable. There are small bilateral hydroceles. Impression: Abnormal exam with focal transitional area and localized distal small bowel mucosal wall thickening and enhancement associated with mesenteric swirling. Findings are likely sequelae of bowel obstruction with ischemic, inflammatory or infectious etiology. Th (more content not included)... [facility] 05-28-2024 Note 05/28/24 1243 Admission Assessment Questions Verify insurance with patient Yes Do you understand medical disease or what brought you into the hospital? Yes Who is your current PCP? David Caputo Can I schedule a follow up appointment for you at the time of discharge? Yes Do you understand why you are taking your current medications? Yes Are you taking your medications as prescribed? Yes Did patient provide teach back? No Pharmacy Bedside Delivery Status Interested Does the patient have a disease case manager rn assigned to them through their insurance? No Living Arrangement (Current/Prior to Hospitalization) Home self care (From home with 2 adult children) Does the patient have history of HHC or SNF? Yes (Patient stated he has a hx of SNF over the summer, but unsure of the name.) Assistive Device Cane;Walker;Wheelchair Patient's goal for discharge Goal is to discharge home Was patient reminded that goal for discharge is 11am? Yes Does the patient have transportation at discharge? Yes Type of Residence Private residence Is PT/OT appropriate? No Is PT/OT ordered? No Is SW consult appropriate? No Is SW consult ordered? No Do you understand the benefits of MyChart? Yes Were you able to send link and activate MyChart? No [facility] 05-28-2024 Note Hospital Medicine History and Physical 05/28/2024 12:29 AM THE HOSPITALIST TEAM PREFERS TO USE [employer] CHAT FOR NON-URGENT COMMUNICATION 7AM-7PM. IF I DO NOT RESPOND WITHIN 20 MINUTES OR URGENT MATTERS, PLEASE CALL THROUGH THE ADJUNCT SPANISH INSTRUCTOR. FROM 7PM-7AM, PLEASE PAGE [phone](COVR). Chief Complaint Chief Complaint Patient presents with Shortness of Breath History of Present Illness Rocio Jackson is an 68 y.o. male who admitted from ER when transferred from [facility] multiple medical problems including history of T3 N1 adenocarcinoma of the ampulla Vater status post Whipple's in 2017 and completed adjuvant chemotherapy in December 2017 with Xeloda and Gemzar had a follow-up CT of the abdomen in July 2019 with no evidence of recurrent admitted with episode of lower GI bleed was found to have hypotension and tachycardia and renate blood in the stool requiring 1 unit of packed red blood cells is initial hemoglobin was 7.4 with MCV 22.9 because of above mentioned issues patient was transferred from [facility] to [facility] ER.patient has been on Eliquis for paroxysmal atrial fibrillation. He has history of prior GA and stenting in 2011 and was found to have severe LV dysfunction follow-up stress perfusion imaging in 2018 revealed improved LV function with EF around 40% and anterior septal scar. Labs in the ER revealed creatinine 0.54 BUN 37 calcium 7 with albumin which was not checked his hemoglobin was 7.8 WBC 3.15 MCV 103.1 and platelet [address] abdomen done which shows either inflammatory or ischemic changes of the small bowel. He does admit having weight loss of about 15 to 20 pounds in past several months with poor appetite and postprandial abdominal pain Review of System and Physical Exam Temp: [37.2 ???C (99 ???F)-37.6 ???C (99.7 ???F)] 37.2 ???C (99 ???F) Heart Rate: [90-143] 91 Resp: [13-26] 18 BP: (79-115)/(44-96) 107/66 Physical Exam Vitals reviewed. Constitutional: Comments: Ill appearing elderly white male awake alert HENT: Head: Normocephalic and atraumatic. Right Ear: Tympanic membrane, ear canal and external ear normal. Left Ear: Tympanic membrane, ear canal and external ear normal. Nose: Nose normal. Mouth/Throat: Mouth: Mucous membranes are moist. Pharynx: Oropharynx is clear. Eyes: Extraocular Movements: Extraocular movements intact. Conjunctiva/sclera: Conjunctivae normal. Pupils: Pupils are equal, round, and reactive to light. Cardiovascular: Rate and Rhythm: Normal rate and regular rhythm. Pulmonary: Effort: Pulmonary effort is normal. Breath sounds: Normal breath sounds. Abdominal: General: Abdomen is flat. Bowel sounds are normal. Palpations: Abdomen is soft. Musculoskeletal: General: Normal range of motion. Cervical back: Normal range of motion and neck supple. No rigidity. Skin: Capillary Refill: Capillary refill takes less than 2 seconds. Comments: Bruising extremities Perianal area red no open area Neurological: Mental Status: He is alert. Mental status is at baseline. Psychiatric: Behavior: Behavior normal. Review of Systems Constitutional: Positive for chills and fatigue. HENT: Negative. Eyes: Negative. Respiratory: Negative. Cardiovascular: Negative. Gastrointestinal: Positive for abdominal pain and blood in stool. Melena Endocrine: Negative. Genitourinary: Negative. Musculoskeletal: Negative. Neurological: Positive for weakness. Negative for dizziness, tremors, seizures, syncope, facial asymmetry, speech difficulty, light-headedness, numbness and headaches. Hematological: Positive for adenopathy. Psychiatric/Behavioral: Negative. Problem List Principal Problem: GI bleed Assessment and Plan Posthemorrhagic anemia Acute GI bleed Hypotension Prerenal azotemia Abnormal abdominal CT either suggestive of infection/colitis versus ischemia History of paroxysmal atrial fibrillation on chronic Eliquis treatment History of diabetes mellitus History of hypertension History of ampulla of Vater adenocarcinoma History of coronary artery disease Hold anticoagulation serial hemoglobin hematocrit patient time of evaluation was history of packed red cell transfusion check a hemoglobin hematocrit blood sugar check insulin sliding scale every 6 hours keep patient n.p.o. IV hydration as needed telemetry patient was started on ceftriaxone and Flagyl will check lactate, GI consult IV Protonix CODE STATUS discussed with patient DNR CCA VTE Prophylaxis: Posthemorrhagic anemia ----- Focus of this inpatient stay will remain on problems that need acute care setting for care. We will review available studies and will order additional labs, imaging and other studies as appropriate. As needed medicines are ordered as appropriate. VTE Prophylaxis will be ordered as appropriate. Please see above for management plan for individual hospital problems. Home medications are reviewed (more content not included)... [facility] 04-28-2024 Nurse Note Patient Identification confirmed: yes. Injection given and documented on AUG per provider order. Livier Seay MA [facility] 04-28-2024 Nurse Note Patient Identification confirmed: yes. Injection given and documented on AUG per provider order. Livier Seay MA documented in this encounter [facility] 04-01-2024 Telephone encounter Note The following approved medication requests have been transmitted electronically. Requested Prescriptions Signed Prescriptions Disp Refills metoclopramide HCl (REGLAN) 10 mg tablet 90 tablet 3 Sig: Take 1 tablet by mouth three times a day with meals. Authorizing Provider: ROLA GORDON APRN.CNP [facility] 04-01-2024 Miscellaneous Notes The following approved medication requests have been transmitted electronically. Requested Prescriptions Signed Prescriptions Disp Refills metoclopramide HCl (REGLAN) 10 mg tablet 90 tablet 3 Sig: Take 1 tablet by mouth three times a day with meals. Authorizing Provider: ROLA GORDON APRN.CNP documented in this encounter [facility] 03-31-2024 Nurse Note Patient Identification confirmed: yes. Injection given and documented on MAR per provider order. Srinivasan See MA [facility] 03-31-2024 Nurse Note Patient Identification confirmed: yes. Injection given and documented on MAR per provider order. Srinivasan See MA documented in this encounter [facility] 03-10-2024 Instructions Rona Cárdenas - 03/10/2024 2:39 PM EDT B12 shot on 04/01 and q 4 weeks Continue folic acid 1 mg daily as Rx'd CT scans with labs in 3 months RTC 1 week after Continue following with Dr. Caputo for DMII management documented in this encounter [facility] 03-10-2024 History of Present illness Narrative Images from the original note were not included. NAME: Rocio Jackson CLINIC NO.: [id number] DATE OF SERVICE: March 10, 2024 ([facility]) Some elements in this clinic note that are critical to medical decision making have been carefully reviewed and included from a prior clinic note dated: [facility] Referring Provider: Dr. Vanessa Bejarano Additional Clinicians [...] open wounds. CTCAP done late December in [place] concerning for possible metastatic disease. Updated Visit, [...] with his son Joaquin. Worked at a [employer] Doing well overall is at his baseline. [...] colonoscopy as well as reports from his horser up. His PFTs are pending, and he was [...] mouth three times a day with meals. ewztlj-vdzkhfqd-rmyrkmt (ZENPEP) 25,000-79,000- 105,000 unit delayed release capsule Take 2 capsules by mouth three times a day with meals. qnpqxe-irdwvwxh-wacdjmy (CREON 24) 24,000-76,000 -120,000 unit delayed release [...] 5 blood transfusions Coronary artery disease involving [place] coronary artery Diabetes mellitus (HCC) 2016 Duodenal cancer (HCC) Dyslipidemia Fatigue Glaucoma Hypertension Iron deficiency anemia secondary to inadequate dietary iron intake 09/10/2023 Myocardial infarction (HCC) 05/15/2011 PTSD (post-traumatic stress disorder) PAST SURGICAL HISTORY Procedure Laterality Date ANGIOPLASTY HX 05/15/2011 2 stents s/p GA;[facility] CHOLECYSTECTOMY 08/11/2017 [facility] COLONOSCOPY PAST SURGICAL HISTORY OF Cardiac Stents x2 PAST SURGICAL HISTORY OF 09/2017 [place] PICC LINE INSERT/CONSULT 08/16/2017 Social History Tobacco [...] which included preparing to see the patient, uanw-dk-ciph patient care, completing clinical documentation, performing a medically appropriate examination, counseling and educating the patient/family/caregiver, ordering medications, tests, or procedures, independently interpreting results (not separately reported), communicating results to the patient/family/caregiver, and care coordination (not separately reported). Zahra Mya MD, CPE Hematology and Oncology Services Provided at: [place], [place] Scribe Attestation: This note was scribed by Rona Cárdenas on March 10, 2024 under the direction and supervision of Dr. Zahra aMy. I attest that all of the information documented is correct to the best of my knowledge. Provider Attestation: I, Zahra May MD, attest that all information documented by the above scribe is correct, and was supervised by me and under my direction. CC: Dr. David Caputo [address] [facility] [id number] documented in this encounter [facility] 03-10-2024 Note HNO ID: [id number] Author: ZAHRA MAY MD Service: ? Author Type: Physician Type: Progress Notes Filed: 03/12/2024 08:26 Note Text: NAME: Rocio Jackson CLINIC NO.: [id number] DATE OF SERVICE: March 10, 2024 ([facility]) [...] prominent central m (more content not included)... [facility] 03-03-2024 Nurse Note Patient Identification confirmed: yes. Injection given and documented on AUG per provider order. Livier Seay MA [facility] 03-03-2024 Nurse Note Patient Identification confirmed: yes. Injection given and documented on AUG per provider order. Livier Seay MA documented in this encounter [facility] 03-03-2024 History of Present illness Narrative RADIOLOGY [...] PATIENT PRESENTS WITH AN IMPLANTABLE OR ATTACHED TANNERY WORKER: No CREATININE: Creatinine Date Value Ref Range [...] contrast PATIENT DISCHARGED TO: Ambulatory patient, left AL department area. A Diagnostic radioactive procedure has taken place, with no further precautions necessary other than routine body substance precautions. More information regarding radiation safety can be found using this link: [email or web address] [email or web address]%20Nuclear%20Med icine%20Procedures.pdf SIGNATURE: DOMINIQUE Lee) PATIENT NAME: Rocio Jackson DATE: March 03, 2024 TIME: 1:14 PM PAGER/CONTACT #: documented in this encounter [facility] 03-03-2024 Note HNO ID: [id number] Author: SUSAN PROCTOR RT(R) Service: ? Author [...] PATIENT PRESENTS WITH AN IMPLANTABLE OR ATTACHED TANNERY WORKER: No CREATININE: Creatinine Date Value Ref Range [...] contrast PATIENT DISCHARGED TO: Ambulatory patient, left AL department area. A Diagnostic radioactive procedure has taken place, with no further precautions necessary other than routine body substance precautions. More information regarding radiation safety can be found using this link: [email or web address] [email or web address]-% 20Diagnostic%20Nuclear%20Medicine%20 Procedures.pdf SIGNATURE: RT Jesus(R) PATIENT NAME: Rocio Jackson DATE: March 03, 2024 TIME: 1:14 PM PAGER/CONTACT #: [facility] 01-29-2024 Nurse Note Patient Identification confirmed: yes. Injection given and documented on MAR per provider order. Lillian Tucker MA [facility] 01-29-2024 Nurse Note Patient Identification confirmed: yes. Injection given and documented on MAR per provider order. Lillian Tucker MA documented in this encounter [facility] 01-08-2024 Nurse Note Patient Identification confirmed: yes. Injection given and documented on MAR per provider order. Lillian Tucker MA [facility] 01-08-2024 Nurse Note Patient Identification confirmed: yes. Injection given and documented on MAR per provider order. Lillian Tucker MA documented in this encounter [facility] 12-07-2023 Telephone encounter Note Pt daughterShiela, aware of MM message and denies any questions, needs or concerns at this time. Cassandra Hernandez RN [facility] 12-07-2023 Miscellaneous Notes Pt daughterShiela, aware of MM message and denies any questions, needs or concerns at this time. Cassandra Hernandez RN Noneed for iron at this time Leila Wagner PA-C MM: Please advise on Iron labs Cassandra Hernandez RN Dr Crooks is requesting Triage nurse to call patient with results of FE studies from today 12-03-23. Thank you documented in this encounter [facility] 12-07-2023 Telephone encounter Note Noneed for iron at this time Leila Wagner PA-C [facility] Work Phone: 12-07-2023 Telephone encounter Note MM: Please advise on Iron labs Cassandra Hernandez RN [facility] 12-03-2023 Nurse Note Patient Identification confirmed: yes. Injection given and documented on MAR per provider order. Lillian Tucker MA [facility] 12-03-2023 Nurse Note Patient Identification confirmed: yes. Injection given and documented on MAR per provider order. Lillian Tucker MA documented in this encounter [facility] 12-03-[address] Crooks is requesting Triage nurse to call patient with results of FE studies from today 12-03-23. Thank you [facility] 12-03-2023 Instructions Rona Thomas - 12/03/2023 3:27 PM EDT B12 shot today and every 4 weeks Triage to call with results of iron studies IV iron if indicated (previously received Monoferric) Continue folic acid 1 mg daily as Rx'd CT scans with labs in 3 months RTC 1 week after Continue following with Dr. Caputo for DMII management documented in this encounter [facility] 12-03-2023 History of Present illness Narrative Images from the original note were not included. NAME: Rocio Jackson [facility] NO.: [id number] DATE OF SERVICE: December 03, 2023 ([facility]) [...] open wounds. CTCAP done late December in [place] concerning for possible metastatic disease. Updated Visit, [...] with his son Joaquin. Worked at a [employer] Doing well overall is at his baseline. [...] colonoscopy as well as reports from his horser up. His PFTs are pending, and he was [...] mouth three times a day with meals. hgrvrf-nbyjyaoj-jnhjnvd (ZENPEP) 25,000-79,000- 105,000 unit delayed release capsule Take 2 capsules by mouth three times a day with meals. gqozqu-xwuqimwx-dopyegc (CREON 24) 24,000-76,000 -120,000 unit delayed release [...] 5 blood transfusions Coronary artery disease involving [place] coronary artery Diabetes mellitus (HCC) 2017 Duodenal cancer (HCC) Dyslipidemia Fatigue Glaucoma Hypertension Iron deficiency anemia secondary to inadequate dietary iron intake 09/10/2023 Myocardial infarction (HCC) 05/15/2011 PTSD (post-traumatic stress disorder) PAST SURGICAL HISTORY Procedure Laterality Date ANGIOPLASTY HX 05/15/2011 2 stents s/p GA;[facility] CHOLECYSTECTOMY 08/11/2017 [facility] COLONOSCOPY PAST SURGICAL HISTORY OF Cardiac [...] which included preparing to see the patient, llns-za-cquu patient care, completing clinical documentation, performing a medically appropriate examination, counseling and educating the patient/family/caregiver, ordering medications, tests, or procedures, independently interpreting results (not separately reported), communicating results to the patient/family/caregiver, and care coordination (not separately reported). Zahra May MD, CPE Hematology and Oncology Services Provided at: [place], [place] Scribe Attestation: This note was scribed [...] under my direction. CC: Dr. David Caputo [address] [place] [phone] documented in this encounter [facility] 12-03-2023 Note HNO ID: [id number] Author: ZAHRA MAY MD Service: ? Author Type: Physician Type: Progress Notes Filed: 12/05/2023 15:00 Note Text: NAME: Rocio Jackson CLINIC NO.: [id number] DATE OF SERVICE: December 03, 2023 ([facility]) [...] resection margins a (more content not included)... [facility] 11-05-2023 Nurse Note Patient Identification confirmed: yes. Injection given and documented on MAR per provider order. Livier Seay MA [facility] 11-05-2023 Nurse Note Patient Identification confirmed: yes. Injection given and documented on MAR per provider order. Livier Seay MA documented in this encounter [facility] 10-29-2023 History of Present illness Narrative Subjective [...] Patient does have a history of prior GA and stenting in 2010 due to an anterior GA with two 4 x 18 and 4 [...] a day with meals., Disp: , Rfl: hylqrs-hbitkllo-dshwixz (Creon) 24,000-76,000 -120,000 unit capsule, Take 1 [...] Attestation By signing my name below, IKiley LPN, Scribe attest that this documentation has been [...] discussion and plan. documented in this encounter [facility] Work Phone: 10-29-2023 Instructions Jimmy Dawkins [...] of your visit. documented in this encounter [facility] Work Phone: 10-08-2023 Nurse Note Patient Identification confirmed: yes. Injection given and documented on AUG per provider order. Livier Seay MA documented in this encounter [facility] 09-24-2023 Note HNO ID: [id number] Author: BRONWYN DIAZ RN Service: ? Author [...] son lives with and cares for pt. [facility] 09-21-2023 Note HNO ID: [id number] Author: MACKENZIE KNIGHT LSW Service: ? Author Type: Television Presenter Type: Progress Notes Filed: 09/21/2023 11:38 Note Text: Patient appears on the [facility] First Time Treatment List for a non-oncology treatment. No psychosocial assessment is indicated. MARINO Andrade [facility] 09-21-2023 History of Present illness Narrative Patient appears on the [facility] First Time Treatment List for a non-oncology treatment. No psychosocial assessment is indicated. MARINO Andrade documented in this encounter [facility] 09-18-2023 Miscellaneous Notes Pt sister called to reorder Zenpep. Pt qualified for free Creon, pr pharmacy was ordered 09/09 and would be shipped to pt. He should receive in 5/7 business days (from 09/09). Daughter aware he should receive today or Thursday. Encouraged to call back and speak with pharmacy, if not rec'd to check status. Cassandra Hernandez RN documented in this encounter [facility] 09-10-2023 Nurse Note Patient Identification confirmed: yes. Injection given and documented on AUG per provider order. Livier Seay documented in this encounter [facility] 09-10-2023 History of Present illness Narrative Images from the original note were not included. NAME: Coleen Jacksonn CLINIC NO.: [id number] DATE OF SERVICE: September 10, 2023 ([facility]) Some elements in this clinic note that are critical to medical decision making have been carefully reviewed and included from a prior clinic note dated: March 11, 2023 ([facility]) Referring Provider: Dr. Vanessa Bejarano Additional Clinicians [...] open wounds. CTCAP done late December in [place] concerning for possible metastatic disease. Updated Visit, [...] with his son Joaquin. Worked at a [employer] Doing well overall is at his baseline. [...] colonoscopy as well as reports from his horser up. His PFTs are pending, and he was [...] petechiae. ALLERGIES: ALLERGIES No Known Allergies MEDICATIONS: eozybo-iydxdxgc-fadlgqy (ZENPEP) 25,000-79,000- 105,000 unit delayed release capsule Take 2 capsules by mouth three times a day with meals. metoclopramide HCl (REGLAN) 10 mg tablet Take 1 tablet by mouth three times a day with meals. luzqyk-xtwtzfqt-jtlqacq (CREON 24) 24,000-76,000 -120,000 unit delayed release [...] 5 blood transfusions Coronary artery disease involving [place] coronary artery Diabetes mellitus (HCC) 2017 Duodenal cancer (HCC) Dyslipidemia Fatigue Glaucoma Hypertension Iron deficiency anemia secondary to inadequate dietary iron intake 09/10/2023 Myocardial infarction (HCC) 05/15/2011 PTSD (post-traumatic stress disorder) PAST SURGICAL HISTORY Procedure Laterality Date ANGIOPLASTY HX 05/15/2011 2 stents s/p [place];[facility] CHOLECYSTECTOMY 08/11/2017 [facility] COLONOSCOPY PAST SURGICAL HISTORY OF Cardiac Stents x2 PAST SURGICAL HISTORY OF 09/2017 [place] PICC LINE INSERT/CONSULT 08/16/2017 Social History Tobacco [...] which included preparing to see the patient, jelz-ao-cdrd patient care, completing clinical documentation, performing a medically appropriate examination, counseling and educating the patient/family/caregiver, ordering medications, tests, or procedures, independently interpreting results (not separately reported), communicating results to the patient/family/caregiver, and care coordination (not separately reported). Zahra May MD, CPE Hematology and Oncology Services Provided at: [place], [place] Scribe Attestation: This note was scribed [...] [address] [facility] [id number] documented in this encounter [facility] 09-10-2023 Note HNO ID: [id number] Author: ZAHRA MAY MD Service: ? Author Type: Physician Type: Progress Notes Filed: 09/10/2023 21:16 Note Text: NAME: Rocio Jackson CLINIC NO.: [id number] DATE OF SERVICE: September 10, 2023 (Iftikhar) [...] free of sarai (more content not included)... [facility] 09-10-2023 Instructions Rona Thomas - 09/10/2023 2:12 PM EDT B12 shot today and every 4 weeks. IV iron when approved (previously received Monoferric) Patient will continue folic acid 1 mg daily as Rx'd. continue following with Dr. Caputo for DMII management. RTC in 3 months Labs [address] scans in 6 months documented in this encounter [facility] 09-10-2023 Miscellaneous Notes Approved for free Creon until 06/28/2024. Patient should receive shipment in 5-7 business days. Artur Reynolds PharmD, BCOP documented in this encounter [facility] 09-08-2023 Miscellaneous Notes Per insurance Zenpep is preferred and has better coverage at mail order for patient Artur Reynolds PharmD, BCOP documented in this encounter [facility] 09-04-2023 Miscellaneous Notes Spoke with Shiela this morning, advised her we need someone to stop in and sign application. Shiela gave me Rocio's RX insurance information and told me her brother will stop in to sign paperwork and can provide annual income. Advised Shiela that this process with Creon can take up to a month to complete and that in the mean time there is a rx for Rocio at the [facility] in [place]. She verbalized understanding. Artur Reynolds PharmD, BCOP Daughter, Shiela called back to discuss free drug program information. Please call Cassandra Hernandez RN Printed free drug application for Creon from [employer] website: left message for patient's daughter to [...] for a 3 mo supply. Pharmacist at [facility] called around for Zenpep (creon substitute) and Remy MURCIA is able to fill a 30 day supply for 600 dollars. Pharmacy: are there any programs to assist pt? Chris: pt has an appt with you tomorrow to discuss further Cassandra Hernandez RN documented in this encounter [facility] 09-03-2023 History of Present illness Narrative Radiology [...] PATIENT PRESENTS WITH AN IMPLANTABLE OR ATTACHED TANNERY WORKER: No RADIOLOGY DEPARTMENT: CT; Exam(s) Completed: Chest [...] TIME: 2:25 PM documented in this encounter [facility] 09-03-2023 Miscellaneous Notes Encounter addended by: Fer Degroot RN on: 09/03/2023 2:26 PM Actions taken: Clinical Note Signed documented in this encounter [facility] 09-03-2023 Note Encounter addended b y: Fer Degroot RN on: 09/03/2023 2:26 PM Actions taken: Clinical Note Signed [facility] 09-03-2023 Note HNO ID: [id number] Author: LAUREN BONDS RT(Pilar) Service: ? Author Type: Technologist Type: Progress [...] PATIENT PRESENTS WITH AN IMPLANTABLE OR ATTACHED TANNERY WORKER: No RADIOLOGY DEPARTMENT: CT; Exam(s) Completed: Chest Abdomen Pelvis PERIPHERAL IV DATA: Site assessment: Clean,Dry and Intact, Site disposition Discontinued SIGNED BY: RT Mahendra(R) September 03, 2023 1:12 PM [facility] 09-03-2023 Note HNO ID: [id number] Author: FER DEGROOT RN Service: ? Author [...] DATE: September 03, 2023 TIME: 2:25 PM [facility] 08-11-2023 Miscellaneous Notes ----- Message from Rick Zapata DO sent at 08/11/2023 7:07 AM EST ----- Please let patient know that he had duodenitis which is inflammation and he should be on a proton pump inhibitor such as omeprazole. He should take that for 8 weeks. He should follow up with Hematology. Thanks, Dr. Salgado Spoke with Sophia BATEMAN at [facility] regarding patient's pathology results. Sophia verbally understood. Informed Sophia I would fax results and clarification on dosage of Omeprazole. [facility] Telephone encounter Note ----- Message from Rick Zapata DO sent at 08/11/2023 7:07 AM EST ----- Please let patient know that he had duodenitis which is inflammation and he should be on a proton pump inhibitor such as omeprazole. He should take that for 8 weeks. He should follow up with Hematology. ThanksDr. Salgado [facility] Telephone encounter Note Spoke with Sophia BATEMAN at [facility] regarding patient's pathology results. Sophia verbally understood. Informed Sophia I would fax results and clarification on dosage of Omeprazole. [employer] 07-14-2023 History general N arrative - Reported Type Medical History BMI 20.0-20.9, adult Medical History Paroxysmal atrial fibrillation Medical History Lumbar pain Medical History Essential hypertension Medical History Tachypnea on examination Medical History Dyspnea on exertion Medical History Anxiety, generalized Medical History Anemia, macrocytic Medical History Elevated LFTs Medical History Fatigue Medical History 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 Surgical History heart stent 2010 Surgical History stomach ulcer 2017 Surgical History gallbladder 2018 Surgical History whipple 2017 Surgical History colonoscopy 2019 Hospitalization History SEE SURGICAL HX [facility] Other 01-16-2024 Evaluation note* Encounter Date Diagnosis Assessment Notes Treatment Notes Treatment Clinical Notes Jun, Anxiety disorder, unspecified (ICD-10 - F41.9) [facility] Other 01-02-2024 Evaluation note* Encounter Date Diagnosis Assessment Notes Treatment Notes Treatment Clinical Notes Jun, Anxiety, generalized (ICD-10 - F41.1) [facility] Other 12-18-2023 History general Narrative - Reported* Type Description Date Medical History BMI 20.0-20.9, adult Medical History Paroxysmal atrial fibrillation Medical History Lumbar pain Medical History Essential hypertension Medical History Tachypnea on examination Medical History Dyspnea on exertion Medical History Anxiety, generalized Medical History Anemia, macrocytic Medical History Elevated LFTs Medical History Fatigue Medical History 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 Surgical History heart stent 2010 Surgical History stomach ulcer 2016 Surgical History gallbladder 2018 Surgical History whipple 2017 Surgical History colonoscopy 2019 Hospitalization History SEE SURGICAL HX [facility] Other 12-07-2023 Evaluation note* Encounter Date Diagnosis [...] Pain in left hand (ICD-10 - M79.642) [facility] Other 11-24-2023 Evaluation note* Encounter Date Diagnosis Assessment Notes Treatment Notes Treatment Clinical Notes Apr, Anxiety disorder, unspecified (ICD-10 - F41.9) [facility] Other 11-21-2023 Evaluation note* Encounter Date Diagnosis Assessment Notes Treatment Notes Treatment Clinical Notes Apr, Anxiety, generalized (ICD-10 - F41.1) [facility] Other 11-08-2023 Evaluation note* Encounter Date Diagnosis Assessment Notes Treatment Notes Treatment Clinical Notes Apr, Anxiety, generalized (ICD-10 - F41.1) [facility] Other 10-19-2023 History general Narrative - Reported* Type Description Date Medical History BMI 20.0-20.9, adult Medical History Paroxysmal atrial fibrillation Medical History Lumbar pain Medical History Essential hypertension Medical History Tachypnea on examination Medical History Dyspnea on exertion Medical History Anxiety, generalized Medical History Anemia, macrocytic Medical History Elevated LFTs Medical History Fatigue Medical History 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 Surgical History heart stent 2010 Surgical History stomach ulcer 2017 Surgical History gallbladder 2018 Surgical History whipple 2018 Surgical History colonoscopy 2019 Hospitalization History SEE SURGICAL [facility] Other 10-12-2023 Nurse Note* Srinivasan See Ma - 04/09/2023 2:56 PM EDT Patient Identification confirmed: yes. Injection given and documented on AUG per provider order. Srinivasan See Ma [facility] History general Narrative - Reported* Type Description Date Medical History BMI 20.0-20.9, adult Medical History Paroxysmal atrial fibrillation Medical History Lumbar pain Medical History Essential hypertension Medical History Tachypnea on examination Medical History Dyspnea on exertion Medical History Anxiety, generalized Medical History Anemia, macrocytic Medical History Elevated LFTs Medical History Fatigue Medical History 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 Surgical History heart stent 2010 Surgical History stomach ulcer 2017 Surgical History gallbladder 2018 Surgical History whipple 2018 Surgical History colonoscopy 2019 Hospitalization History SEE SURGICAL [facility] Other 10-10-2023 Evaluation note* Encounter Date Diagnosis Assessment Notes Treatment Notes Treatment Clinical Notes Mar, Anxiety, generalized (ICD-10 - F41.1) [facility] Other 10-02-2023 Miscellaneous Notes* Telephone Encounter - Rola Gordon APRN.CNP - 03/30/2023 4:04 PM EDT The following approved medication requests have been transmitted electronically. Requested Prescriptions Signed Prescriptions Disp Refills folic acid 1 mg tablet 90 tablet 3 Sig: Take 1 tablet by mouth once daily. Authorizing Provider: ROLA GORDON APRN.LUMBER TAILER [facility] Evaluation note* Encounter Date Diagnosis Assessment Notes Treatment Notes Treatment Clinical Notes Feb, Anxiety disorder, unspecified (ICD-10 - F41.9) [facility] Other 09-18-2023 Miscellaneous Notes* Telephone Encounter - Adriana Dupree - 03/16/2023 2:18 PM EDT Patient is scheduled for his CT CAP on 07/01/23 and his follow-up with [facility] on 07/08/23. Patient's appointments were mailed on 03/16/23. ThanksAdriana * Telephone Encounter - Susan Jones RN [...] Cassandra Hernandez RN * Telephone Encounter - Jordan Cris Mile M - 03/11/2023 11:12 AM EDT 3. Triage to please call PET/CT results next week a. Determine follow up based on results. documented in [facility] Nurse Note* Lillian Marinelli MA - 03/11/2023 11:21 AM EDT Patient Identification confirmed: yes. Injection given and documented on AUG per provider order. Lillian Tucker MA documented in [facility]23 Instructions* Patient Instructions* Zahra May MD - 03/11/2023 11:09 AM EDT B12 shot today and every 4 weeks. Patient will continue folic acid 1 mg daily as Rx'd. Triage to please call PET/CT results next week Determine follow up based on results. continue following with Dr. Caputo for DMII management. documented in this encounter[facility]23 History of Present illness Narrative* Zahra May MD - 03/11/2023 10:45 AM EDT Images from the original note were not included. NAME: Rocio Jackson CLINIC NO.: [id number] DATE OF SERVICE: March 11, 2023 (Iftikhar) [...] open wounds. CTCAP done late December in [place] concerning for possible metastatic disease. Updated Visit, November 28, 2022: Rocio returns with his son today. Blood sugars are really high. Will need this addressed. Updated Visit, October 03, 2022: Rocio Ventura returns for follow-up. He is accompanied by [...] with his son Joaquin. Worked at a [employer]. Doing well overall is at his baseline. [...] colonoscopy as well as reports from his horser up. His PFTs are pending, and he was [...] three times daily with meals.^Disp:90 tablet^Rfl: 1 mxfxui-bbpjbzna-boqgafp (CREON 24) 24,000-76,000 -120,000 unit delayed release [...] 5 blood transfusions Coronary artery disease involving [place] coronary artery Diabetes mellitus (HCC) 2017 Duodenal cancer (HCC) Dyslipidemia Fatigue Glaucoma Hypertension Myocardial infarction (HCC) 05/15/2011 PTSD (post-traumatic stress disorder) PAST SURGICAL HISTORY Procedure Laterality Date ANGIOPLASTY HX 05/15/2011 2 stents s/p [place];[facility] CHOLECYSTECTOMY 08/11/2017 [facility] COLONOSCOPY PAST SURGICAL HISTORY OF Cardiac [...] which included preparing to see the patient, oszc-dq-nrtf patient care, completing clinical documentation, performing a medically appropriate examination, counseling and educating the patient/family/caregiver, ordering medications, tests, or p rocedures, independently interpreting results (not separately reported), communicating results to the patient/family/caregiver, and care coordination (not separately reported). Zahra May MD, CPE Hematology and Oncology Services Provided at: [place], [place] CC: Dr. David Caputo [address] [place] [id number] documented in [facility] History of Present illness Narrative* Susan Procotr, RT(R) - 03/11/2023 8:15 AM EDT RADIOLOGY [...] radiation safety can be found usingthis link: [email or web address] SIGNATURE: DOMINIQUE Lee) PATIENT NAME: Rocio Jackson DATE: March 11, 2023 TIME: 10:00 AM PAGER/CONTACT #: documented in this encounterW[facility]09-[facility]23 History general Narrative - Reported* Type Description Date Medical History BMI 20.0-20.9, adult Medical History Paroxysmal atrial fibrillation Medical History Lumbar pain Medical History Essential hypertension Medical History Tachypnea on examination Medical History Dyspnea on exertion Medical History Anxiety, generalized Medical History Anemia, macrocytic Medical History Elevated LFTs Medical History Fatigue Medical History 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 Surgical History heart stent 2010 Surgical History stomach ulcer 2016 Surgical History gallbladder 2018 Surgical History whipple 2017 Surgical History colonoscopy 2019 Hospitalization History SEE SURGICAL HX [facility] Other 09-07-2023 History general Narrative - Reported* Type Description Date Medical History BMI 20.0-20.9, adult Medical History Paroxysmal atrial fibrillation Medical History Lumbar pain Medical History Essential hypertension Medical History Tachypnea on examination Medical History Dyspnea on exertion Medical History Anxiety, generalized Medical History Anemia, macrocytic Medical History Elevated LFTs Medical History Fatigue Medical History 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 Surgical History heart stent 2010 Surgical History stomach ulcer 2016 Surgical History gallbladder 2018 Surgical History whipple 2018 Surgical History colonoscopy 2019 Hospitalization History SEE SURGICAL HX [facility] Other 09-07-2023 Evaluation note* Encounter Date Diagnosis Assessment Notes Treatment Notes Treatment Clinical Notes Feb, SIRS (systemic inflammatory response syndrome) (ICD-10 - R65.10) Reviewed hospital notes and discharge summary. Overall improved. Feb, Coronary artery disease involving [place] coronary artery of [place] heart without angina pectoris (ICD-10 - I25.10) Chronic - continue followup w cardio and oncology. Feb, Type 2 diabetes mellitus with hyperglycemia, without long-term current use of insulin (ICD-10 - E11.65) Glucose improved from earlier this summer. Son will call with some readings at home. [facility] Other 09-07-2023 Miscellaneous Notes* Telephone Encounter - Lillian Tucker MA - 03/05/2023 11:34 AM EDT Patient has an appt on 03/11/23. Would you like labs, if so place orders. His PET scan is 03/11/23. Lillian Tucker MA documented in this encounterW[facility] Center08-24-2023 Instructions* Patient Instructions* Zahra May MD - 02/19/2023 4:16 PM EDT B12 shot today and every 4 weeks. Patient will continue folic acid 1 mg daily as Rx'd. PET/CT in 1-2 weeks RTC same day to review images. continue following with Dr. Caputo for DMII management. documented in this encounterW[facility] Center08-24-2023 History of Present illness Narrative* Zahra May MD - 02/19/2023 3:57 PM EDT Images from the original note were not included. NAME: Ventura Rocio CLINIC NO.: [id number] DATE OF SERVICE: February 19, 2023 (Iftikhar) [...] open wounds. CTCAP done late December in [place] concerning for possible metastatic disease. Updated Visit, [...] with his son Joaquin. Worked at a [employer]. Doing well overall is at his baseline. [...] colonoscopy as well as reports from his horser up. His PFTs are pending, and he was [...] by mouth three times daily with meals. wodftu-gvfrkueh-gyygyra (CREON 24) 24,000-76,000 -120,000 unit delayed release [...] 5 blood transfusions Coronary artery disease involving [place] coronary artery Diabetes mellitus (HCC) 2017 Duodenal cancer (HCC) Dyslipidemia Fatigue Glaucoma Hypertension Myocardial infarction (HCC) 05/15/2011 PTSD (post-traumatic stress disorder) PAST SURGICAL HISTORY Procedure Laterality Date ANGIOPLASTY HX 05/15/2011 2 stents s/p [place];[facility] CHOLECYSTECTOMY 08/11/2017 [facility] COLONOSCOPY PAST SURGICAL HISTORY OF Cardiac [...] which included preparing to see the patient, waui-wx-tkze patient care, completing clinical documentation, performing a medically appropriate examination, counseling and educating the patient/family/caregiver, ordering medications, tests, or p rocedures, and independently interpreting results (not separately reported). Zahra May MD, CPE Hematology and Oncology Services Provided at: [place], [place] CC: Dr. David Caputo [facility] [phone] documented in this encounterWex[facility] Center08-22-2023 Miscellaneous Notes* Telephone Encounter - Livier Seay - 02/17/2023 2:14 PM EDT Patient has an appt on 02/19. Would you like labs? documented in this encounterWexner [facility] Center07-26-2023 Miscellaneous Notes* Telephone Encounter - Susan Jones RN - 01/21/2023 11:11 AM EDT FYI: Pt admitted to [facility] ICU. Presented w/ chest pain and elevated Troponin. 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 Dr Malhotra, Oncologist w/ the [facility] consulted. Copy of pt's last office note faxed to [phone]. Susan Jones RN documented in this encounterWexner Medical Center07-19-2023 Evaluation note* Encounter Date Diagnosis Assessment Notes Treatment Notes Treatment Clinical Notes Dec, Anxiety, generalized (ICD-10 - F41.1) [facility] Other 07-19-2023 Miscellaneous Notes* Telephone Encounter - [...] advise. Cassandra Hernandez RN documented in this encounterWexner Medical Center07-07-2023 History general Narrative - Reported* Type Description Date Medical History BMI 20.0-20.9, adult Medical History Paroxysmal atrial fibrillation Medical History Lumbar pain Medical History Essential hypertension Medical History Tachypnea on examination Medical History Dyspnea on exertion Medical History Anxiety, generalized Medical History Anemia, macrocytic Medical History Elevated LFTs Medical History Fatigue Medical History 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 Surgical History heart stent 2010 Surgical History stomach ulcer 2017 Surgical History gallbladder 2018 Surgical History whipple 2018 Surgical History colonoscopy 2019 Hospitalization History SEE SURGICAL HX [facility] Other 07-06-2023 Evaluation note* Encounter Date Diagnosis [...] forward this info to for further help. [facility] Other 06-30-2023 Nurse Note* Livier Seay - 12/26/2022 4:03 PM EDT Patient Identification confirmed: yes. Injection given and documented on AUG per provider order. Livier Seay documented in this encounterW[facility] Center06-16-2023 History general Narrative - Reported* Type Description Date Medical History BMI 20.0-20.9, adult Medical History Paroxysmal atrial fibrillation Medical History Lumbar pain Medical History Essential hypertension Medical History Tachypnea on examination Medical History Dyspnea on exertion Medical History Anxiety, generalized Medical History Anemia, macrocytic Medical History Elevated LFTs Medical History Fatigue Medical History 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 Surgical History heart stent 2010 Surgical History stomach ulcer 2016 Surgical History gallbladder 2018 Surgical History whipple 2017 Surgical History colonoscopy 2019 Hospitalization History SEE SURGICAL HX [facility] Other 2023 Evaluation note* Encounter Date Diagnosis Assessment Notes Treatment Notes Treatment Clinical Notes Nov, Anxiety, generalized (ICD-10 - F41.1) Nov, Type 2 diabetes mellitus without complication, without long-term current use of insulin (ICD-10 - E11.9) Samples given from office Janumet - followup in 1 month. [facility] Other 06-02-2023 Nurse Note* Lillian Tucker MA - 11/28/2022 4:02 PM EDT Patient Identification confirmed: yes. Injection given and documented on AUG per provider order. Lillian Tucker MA documented in this encounterWex[facility] Medical Center06-02-2023 Instructions* Patient Instructions* Zahra May MD - 11/28/2022 3:42 PM EDT B12 shot today and every 4 weeks. Patient will continue folic acid 1 mg daily as Rx'd. Follow up in 8 weeks for labs and B12. Needs to follow up with Dr. Caputo regarding blood sugars >400 - please send office the labs result. documented in this encounterWexner Medical Center06-02-2023 History of Present illness Narrative* Zahra May MD - 11/28/2022 3:37 PM EDT Images from the original note were not included. NAME: Rocio Jackson CLINIC NO.: [id number] DATE OF SERVICE: November 28, 2022 (Iftikhar) [...] with his son Joaquin. Worked at a [employer] Doing well overall is at his baseline. [...] colonoscopy as well as reports from his horser up. His PFTs are pending, and he was [...] the tongue every 5 minutes as needed. 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 Plan: zfwrjn-dlssvkif-mqvwjmf (CREON 24) 24,000-76,000 -120,000 unit delayed release capsule PAST MEDICAL HISTORY Diagnosis Date Anemia Anxiety Bleeding ulcer 11/15/2016 required 5 blood transfusions Coronary artery disease involving [place] coronary artery Diabetes mellitus (HCC) 2017 Duodenal cancer (HCC) Dyslipidemia Fatigue Glaucoma Hypertension Myocardial infarction (HCC) 05/15/2011 PTSD (post-traumatic stress disorder) PAST SURGICAL HISTORY Procedure Laterality Date ANGIOPLASTY HX 05/15/2011 2 stents s/p [place];[facility] CHOLECYSTECTOMY 08/11/2017 [facility] COLONOSCOPY PAST SURGICAL HISTORY OF Cardiac [...] which included preparing to see the patient, susw-oo-qdlo patient care, completing clinical documentation, performing a medically appropriate examination, counseling and educating the patient/family/caregiver, ordering medications, tests, or p rocedures, and independently interpreting results (not separately reported). Zahra May MD, CPE Hematology [facility] Oncology Services Provided at: [place], [place] CC: Dr. David Caputo [address] [place] [phone] documented in this encounterWexner [facility] Center06-01-2023 Evaluation note* Encounter Date Diagnosis Assessment Notes Treatment Notes Treatment Clinical Notes Nov, Lumbar pain (ICD-10 - M54.50) [facility] Other 05-26-2023 Evaluation note* Encounter Date Diagnosis Assessment Notes Treatment Notes Treatment Clinical Notes October, Anxiety, generalized (ICD-10 - F41.1) [facility] Other 05-05-2023 Nurse Note* Lillian Tucker MA - 10/31/2022 3:35 PM EDT Patient Identification confirmed: yes. Injection given and documented on MAR per provider order. Lillian Tucker MA documented in this encounterWexner Medical Center05-03-2023 Miscellaneous Notes* Telephone Encounter - Rola Gordon APRN.CNP - 10/29/2022 2:43 PM EDT The following approved medication requests have been transmitted electronically. Requested Prescriptions Signed Prescriptions Disp Refills metoclopramide HCl (REGLAN) 10 mg tablet 90 tablet 1 Sig: Take 1 tablet by mouth three times daily with meals. Authorizing Provider: ROLA GORDON APRN.CNP documented in this encounterWexner Medical Center05-02-2023 History general Narrative - Reported* Type Description Date Medical History BMI 20.0-20.9, adult Medical History Paroxysmal atrial fibrillation Medical History Lumbar pain Medical History Essential hypertension Medical History Tachypnea on examination Medical History Dyspnea on exertion Medical History Anxiety, generalized Medical History Anemia, macrocytic Medical History Elevated LFTs Medical History Fatigue Medical History 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 Surgical History heart stent 2010 Surgical History stomach ulcer 2017 Surgical History gallbladder 2018 Surgical History whipple 2018 Surgical History colonoscopy 2019 Hospitalization History SEE SURGICAL [id number] Other 04-07-2023 Nurse Note* Livier Seay - 10/03/2022 4:04 PM EDT Patient Identification confirmed: yes . Injection given and documented on MAR per provider order. Livier Seay documented in this encounterWexner Medical Center03-10-2023 Nurse Note* Lillian Tucker MA - 09/05/2022 2:16 PM EST Patient Identification confirmed: yes. Injection given and documented on MAR per provider order. Lillian Tucker MA documented in this encounterWexner Medical Center02-22-2023 Miscellaneous Notes* Telephone Encounter - Rola Gordon APRN.CNP - 08/20/2022 10:08 AM EST The following approved medication requests have been transmitted electronically. Requested Prescriptions Signed Prescriptions Disp Refills metoclopramide HCl (REGLAN) 10 mg tablet 90 tablet 1 Sig: Take 1 tablet by mouth three times daily with meals. Authorizing Provider: ROLA GORDON APRN.CNP documented in this encounterWexner Medical Center02-10-2023 Instructions* Patient Instructions* Zahra May MD - 08/08/2022 3:14 PM EST B12 shot today and every 4 weeks. Patient will continue folic acid 1 mg daily as Rx'd. RTC in 8 weeks for follow-up, labs and B12 See Rola Dee documented in this encounterWexner Medical Center02-10-2023 History of Present illness Narrative* Zahra May MD - 08/08/2022 3:00 PM EST Images from the original note were not included. NAME: Rocio Jackson CLINIC NO.: [id number] DATE OF SERVICE: August 08, 2022 (Iftikhar) [...] with his son Joaquin. Worked at a [employer] Doing well overall is at his baseline. [...] colonoscopy as well as reports from his horser up. His PFTs are pending, and he was [...] MOUTH THREE TIMES A DAY WITH MEALS pqadxe-soazxpue-vwrqdal (CREON 24) 24,000-76,000 -120,000 unit delayed release [...] 5 blood transfusions Coronary artery disease involving [place] coronary artery Diabetes mellitus (HCC) 2017 Duodenal cancer (HCC) Dyslipidemia Fatigue Glaucoma Hypertension Myocardial infarction (HCC) 05/15/2011 PTSD (post-traumatic stress disorder) PAST SURGICAL HISTORY Procedure Laterality Date ANGIOPLASTY HX 05/15/2011 2 stents s/p [place];[facility] CHOLECYSTECTOMY 08/11/2017 [facility] COLONOSCOPY PAST SURGICAL HISTORY OF Cardiac Stents x2 PAST SURGICAL HISTORY OF 09/2017 [facility] PICC LINE INSERT/CONSULT 08/16/2017 Social History Tobacco [...] which included preparing to see the patient, vpxm-ue-jvqc patient care, completing clinical documentation, obtaining and/or reviewing separately obtained history, performing a medically appropriate examination, counseling and educating the pat ient/family/caregiver and ordering medications, tests, or procedures. Zahra May MD, CPE [place], [place] CC: David Caputo MD [address] [place] [phone] documented in this encounterWexner Medical Center02-10-2023 Miscellaneous Notes* Telephone Encounter - Magalys Cruz RN - 08/08/2022 2:37 PM EST Received call from Paty at [facility] with urgent result: Glucose 501 Magalys Cruz RN documented in this encounterWexner Medical Center01-19-2023 Evaluation note* Encounter Date Diagnosis Assessment Notes Treatment Notes Treatment Clinical Notes Jun, CAD in [place] artery (ICD-10 - I25.10) Continue medications as prescribed Jun, Atypical chest pain (ICD-10 - R07.89) Called [facility] message to return my call. Patient has appointment 09/16. Requested moved up appointment and consider testing at their office as I know they would prefer. 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 Continues remission [facility] Other 01-09-2023 Miscellaneous Notes* Telephone Encounter - [...] recurrence.Thanks for calling him documented in this encounterWexner Medical Center01-05-2023 Nurse Note* Livier Seay - 07/03/2022 3:01 PM EST Patient Identification confirmed: yes. Injection given and documented on AUG per provider order. Livier Seay documented in this encounterWexner Medical Center01-05-2023 Instructions* Patient Instructions* Zahra May MD - 07/03/2022 2:18 PM EST B12 shot today and every [address] results pending today Triage to call results Thursday Patient will continue folic acid 1 mg daily as Rx'd. RTC in 4 weeks for follow-up, labs and B12 See Rola / Leila documented in this [facility]01-05-2023 History of Present illness Narrative* Zahra May MD - 07/03/2022 2:12 PM EST Images from the original note were not included. NAME: Rocio Jackson CLINIC NO.: [id number] DATE OF SERVICE: July 03, 2022 ([facility]) Some elements in this clinic [...] with his son Joaquin. Worked at a [employer] Doing well overall is at his baseline. [...] colonoscopy as well as reports from his horser up. His PFTs are pending, and he was [...] MOUTH THREE TIMES A DAY WITH MEALS jwgnmb-jhmfcjzp-ftkmtux (CREON 24) 24,000-76,000 -120,000 unit delayed release [...] 5 blood transfusions Coronary artery disease involving [place] coronary artery Diabetes mellitus (HCC) 2017 Duodenal cancer (HCC) Dyslipidemia Fatigue Glaucoma Hypertension Myocardial infarction (HCC) 05/15/2011 PTSD (post-traumatic stress disorder) PAST SURGICAL HISTORY Procedure Laterality Date ANGIOPLASTY HX 05/15/2011 2 stents s/p [place];[facility] CHOLECYSTECTOMY 08/11/2017 [facility] COLONOSCOPY PAST SURGICAL HISTORY OF Cardiac [...] which included preparing to see the patient, iveq-ee-gczx patient care, completing clinical documentation, obtaining and/or reviewing separately obtained history, performing a medically appropriate examination, counseling and educating the pat ient/family/caregiver and ordering medications, tests, or procedures. Zahra May MD, CPE [place], [place] CC: David Caputo MD [address] [place] [phone] documented in this encounterWexner Medical Center01-05-2023 History of Present illness Narrative* Susan Proctor, [...] contrast PATIENT DISCHARGED TO: Ambulatory patient, left AL department area. A Diagnostic radioactive procedure has taken place, with no further precautions necessary other than routine body substance precautions. More information regarding radiation safety can be found usingthis link: [email or web address] SIGNATURE: RT Jesus(R) PATIENT NAME: Rocio Jackson DATE: July 03, 2022 TIME: 12:49 PM PAGER/CONTACT #: documented in this encounterWexner Medical Center12-09-2022 History of Present illness Narrative* Sandra Patiño - 06/06/2022 2:34 PM EST Patient Identification confirmed: yes. Injection given and documented on AUG per provider order. Sandra Patiño documented in this encounterWexner Medical Center12-09-2022 Instructions* Patient Instructions* Zahra May MD - 06/06/2022 2:23 PM EST B12 shot today and every 4 weeks. Labs pending today Triage to call results Thursday Monoferric 1000 mg if indicated. Patient will continue folic acid 1 mg daily as Rx'd. RTC in 4 weeks for follow-up, labs and B12 and CT's RTC same day as scans and labs documented in this encounterWexner Medical Center12-09-2022 History of Present illness Narrative* Zahra May MD - 06/06/2022 1:57 PM EST Images from the original note were not included. NAME: Rocoi Jackson CLINIC NO.: [id number] DATE OF SERVICE: June 06, 2022 (Iftikhar) [...] with his son Joaquin. Worked at a [employer] Doing well overall is at his baseline. [...] colonoscopy as well as reports from his horser up. His PFTs are pending, and he was [...] MOUTH THREE TIMES A DAY WITH MEALS puqjqf-topctxjp-xmhqldm (CREON 24) 24,000-76,000 -120,000 unit delayed release [...] 5 blood transfusions Coronary artery disease involving [place] coronary artery Diabetes mellitus (HCC) 2016 Duodenal cancer (HCC) Dyslipidemia Fatigue Glaucoma Hypertension Myocardial infarction (HCC) 05/15/2011 PTSD (post-traumatic stress disorder) PAST SURGICAL HISTORY Procedure Laterality Date ANGIOPLASTY HX 05/15/2011 2 stents s/p [place];[facility] CHOLECYSTECTOMY 08/11/2017 [facility] COLONOSCOPY PAST SURGICAL HISTORY OF Cardiac [...] which included preparing to see the patient, skpv-zs-gvyq patient care, completing clinical documentation, obtaining and/or reviewing separately obtained history, performing a medically appropriate examination, counseling and educating the pat ient/family/caregiver and ordering medications, tests, or procedures. Zahra May MD, On license of [facility] [place], [place] CC: David Caputo MD [address] [facility] [phone] documented in this encounterWexner Medical Center11-15-2022 NotePROCEDURE: XR HIP LT 2 3V W PELVIS HISTORY: Low back pain ; acute left hip pain since falling one week ago COMPARISON: None. FINDINGS: BONES:No fracture, acute abnormality, or significant arthropathy. SOFT TISSUES:No visible soft tissue swelling. EFFUSION:None visible. OTHER: Negative. IMPRESSION: 1. No acute bone abnormality or significant degenerative joint disease. Electronically authenticated by: REBA Agee: 2022-05-13 07:57[facility]11-10-2022 History of Present illness Narrative* Zahra May MD - 05/08/2022 2:00 PM EST Images from the original note were not included. NAME: Coleen Jacksonn CLINIC NO.: [id number] DATE OF SERVICE: May 08, 2022 (Iftikhar) [...] colonoscopy as well as reports from his horser up. His PFTs are pending, and he was [...] petechiae. ALLERGIES: ALLERGIES No Known Allergies MEDICATIONS: bzaqaz-bvetbqsd-ldcnbpf (CREON 24) 24,000-76,000 -120,000 unit delayed release [...] 5 blood transfusions Coronary artery disease involving [place] coronary artery Diabetes mellitus (HCC) 2017 Duodenal cancer (HCC) Dyslipidemia Fatigue Glaucoma Hypertension Myocardial infarction (HCC) 05/15/2011 PTSD (post-traumatic stress disorder) PAST SURGICAL HISTORY Procedure Laterality Date ANGIOPLASTY HX 05/15/2011 2 stents s/p [place];[facility] CHOLECYSTECTOMY 08/11/2017 [facility] COLONOSCOPY PAST SURGICAL HISTORY OF Cardiac [...] which included preparing to see the patient, ctbh-ym-ddkh patient care, completing clinical documentation, obtaining and/or reviewing separately obtained history, performing a medically appropriate examination, counseling and educating the pat ient/family/caregiver and ordering medications, tests, or procedures. Zahra May MD, CPE [facility] [place], [place] CC: David Caputo MD [address] [place] [phone] documented in this encounterWexner Medical Center11-10-2022 Instructions* Patient Instructions* Zahra May MD - [...] reticulonodular / inflammatory changes. documented in this encounterWexner Medical Center10-13-2022 History of Present illness Narrative* Sofia Crouch RN - 04/10/2022 2:29 PM EDT Spoke with Pharmacy. Monoferric can be ran over 20 minutes and premeds can be omitted today per infusion protocol. Pt had recent infusion with no issues. Sofia Crouch RN documented in this encounterWexner Medical Center10-13-2022 Instructions* Patient Instructions* Zahra aMy MD - 04/10/2022 1:30 PM EDT B12 shot today and every 4 weeks. Labs again today please Monoferric 1000 mg today. Patient will start folic acid 1 mg daily as soon as the prescription is filled. RTC in 4 weeks for follow-up, labs and B12. Will need repeat CT in 3 months for reticulonodular / inflammatory changes. documented in this encounterWexner Medical Center10-13-2022 History of Present illness Narrative* Zahra May MD - 04/10/2022 1:08 PM EDT Images from the original note were not included. NAME: Rocio Jackson CLINIC NO.: [id number] DATE OF SERVICE: April 10, 2022 (Iftikhar) [...] colonoscopy as well as reports from his horser up. His PFTs are pending, and he was [...] petechiae. ALLERGIES: ALLERGIES No Known Allergies MEDICATIONS: txlfts-ikjjnxfi-znicfvr (CREON 24) 24,000-76,000 -120,000 unit delayed release [...] 5 blood transfusions Coronary artery disease involving [place] coronary artery Diabetes mellitus (HCC) 2017 Duodenal cancer (HCC) Dyslipidemia Fatigue Glaucoma Hypertension Myocardial infarction (HCC) 05/15/2011 PTSD (post-traumatic stress disorder) PAST SURGICAL HISTORY Procedure Laterality Date ANGIOPLASTY HX 05/15/2011 2 stents s/p [place];[facility] CHOLECYSTECTOMY 08/11/2017 [facility] COLONOSCOPY PAST SURGICAL HISTORY OF Cardiac [...] which included preparing to see the patient, fztx-ru-pvlp patient care, completing clinical documentation, obtaining and/or reviewing separately obtained history, performing a medically appropriate examination, counseling and educating the pat ient/family/caregiver and ordering medications, tests, or procedures. Zahra May MD, CPE [facility] [place], [place] CC: David Caputo MD [facility] [phone] documented in this encounterWexner Medical Center10-12-2022 Miscellaneous Notes* Telephone Encounter - Lillian Tucker MA - 04/09/2022 11:43 AM EDT Patient has an appt on 04/10/22. Would you like labs, if so place orders, your orders are for everyother week. Lillian Tucker MA documented in this encounterWexner Medical Center09-29-2022 Miscellaneous Notes* Telephone Encounter - Rola Gordon APRN.GRISELDA - 03/27/2022 11:27 AM EDT The following approved medication requests have been transmitted electronically. Requested Prescriptions Signed Prescriptions Disp Refills cmrpxg-fswjxfsb-atdtikr (CREON 24) 24,000-76,000 -120,000 unit delayed release capsule 540 capsule 1 Sig: Take 2 capsules by mouth three times daily with meals. Authorizing Provider: ROLA GORDON APRN.CNP * Telephone Encounter - Imelda Reynolds RPh - 03/27/2022 8:30 AM EDT Patient's insurance plan covers a 90 day supply. 90 day script pending. documented in this encounterWexner Medical Center09-15-2022 Miscellaneous Notes* Telephone Encounter - Rola Gordon APRN.CNP - 03/13/2022 2:25 PM EDT The following approved medication requests have been transmitted electronically. Requested Prescriptions Signed Prescriptions Disp Refills folic acid 1 mg tablet 90 tablet 3 Sig: Take 1 tablet by mouth once daily. Authorizing Provider: ROLA GORDON APRN.CNP documented in this encounterWexner Medical Center09-15-2022 History of Present illness Narrative* Rola Gordon APRN.CNP - 03/13/2022 1:00 PM EDT Images from the original note were not included. NAME: Rocio Jackson CLINIC NO.: [id number] DATE OF SERVICE: March 13, 2022 Some [...] 1000 mg today. 3. Patient did not supervisor opening and picking prescription for folic acid. Will send a new prescription to patient's pharmacy [facility] choice, [facility] [place]. Patient will start folic acid 1 mg [...] colonoscopy as well as reports from his horser up. His PFTs are pending, and he was [...] by mouth three times daily with meals. uhpgwd-imfflvcs-upzhhqd (CREON 24) 24,000-76,000 -120,000 unit delayed release [...] 5 blood transfusions Coronary artery disease involving [place] coronary artery Diabetes mellitus (HCC) 2017 Duodenal cancer (HCC) Dyslipidemia Fatigue Glaucoma Hypertension Myocardial infarction (HCC) 05/15/2011 PTSD (post-traumatic stress disorder) PAST SURGICAL HISTORY Procedure Laterality Date ANGIOPLASTY HX 05/15/2011 2 stents s/p [place];[facility] CHOLECYSTECTOMY 08/11/2017 [facility] COLONOSCOPY PAST SURGICAL HISTORY OF Cardiac Stents x2 PAST SURGICAL HISTORY OF 09/2017 [place] PICC LINE INSERT/CONSULT 08/16/2017 Social History Tobacco [...] Relation Age of Onset Cancer Sister 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, 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[place], [place] CC: Zahra May MD [address] [place] [address] [place] [address] David Caputo MD [address] [place] [phone] I spent a total of 30 minutes on the date of the service which included preparing to see the patient, jyyj-fn-fumb patient care, completing clinical documentation, obtaining and/or reviewing separately obtained history, performing a medically appropriate examination, counseling and educating the pat ient/family/caregiver, ordering medications, tests, or procedures, independently interpreting results (not separately reported), and communicating results to the patient/family/caregiver. documented in this encounterWexner Medical Center09-15-2022 Miscellaneous Notes* Telephone Encounter - Fer Pollack [facility] - 03/13/2022 10:51 AM EDT 1st report of treatment-Non oncology regimen (Monoferric) Patient holds Medicare coverage and therefore no FA required. documented in this encounterWexner Medical Center09-02-2022 History of Present illness Narrative* TRACI Andrade - 02/28/2022 9:33 AM EDT Patient is listed on the First Time Treatment Report. Patient is scheduled to receive a non-oncology treatment. No psychosocial assessment is indicated. MARINO Andrade documented in this encounterWexner Medical Center08-22-2022 Miscellaneous Notes* Telephone Encounter - Cassandra Hernandez RN - 02/17/2022 10:57 AM EDT Pt daughter called to verify the RX reglan had been sent to [facility] [place]. HM sent escript 02/12. I called to verify the RX was rec'd by the pharmacy, and spoke to Too, who verifies they have it ready for the pt. Called Shiela back and she is aware it is ready for supervisor opening and picking. Cassandra Hernandez RN documented in this encounterWexner Medical Center08-18-2022 Nurse Note* Livier Seay - 02/13/2022 3:23 PM EDT Patient Identification confirmed: yes. Injection given and documented on AUG per provider order. Livier Seay documented in this encounterWexner Medical Center08-18-2022 History of Present illness Narrative* Zahra May MD - 02/13/2022 2:48 PM EDT Images from the original note were not included. NAME: Rocio Jackson CLINIC NO.: [id number] DATE OF SERVICE: [facility] 2021 Some elements in this clinic [...] colonoscopy as well as reports from his horser up. His PFTs are pending, and he was [...] by mouth three times daily with meals. xmvplo-rsavrxnp-ghtzlpl (CREON 24) 24,000-76,000 -120,000 unit delayed release [...] 5 blood transfusions Coronary artery disease involving [place] coronary artery Diabetes mellitus (HCC) 2017 Duodenal cancer (HCC) Dyslipidemia Fatigue Glaucoma Hypertension Myocardial infarction (HCC) 05/15/2011 PTSD (post-traumatic stress disorder) PAST SURGICAL HISTORY Procedure Laterality Date ANGIOPLASTY HX 05/15/2011 2 stents s/p [place];[facility] CHOLECYSTECTOMY 08/11/2017 [facility] COLONOSCOPY PAST SURGICAL HISTORY OF Cardiac Stents x2 PAST SURGICAL HISTORY OF 09/2017 [place] PICC LINE INSERT/CONSULT 08/16/2017 Social History Tobacco [...] which included preparing to see the patient, vkcp-mc-fecr patient care, completing clinical documentation, obtaining and/or reviewing separately obtained history, performing a medically appropriate examination, counseling and educating the pat ient/family/caregiver and ordering medications, tests, or procedures. Zahra May MD, [place], [place] CC: Zahra May MD [address] [place] [address] [place] [address] David Caputo MD [address] [place] [phone] documented in this encounterWexner Medical Center08-17-2022 Miscellaneous Notes* Telephone Encounter - Rola Gordon [...] be sent to [facility] in [place]. CHRIS: Order pending. Please review and sign. Magalys Cruz RN documented in this encounterWexner Medical Center08-15-2022 Miscellaneous Notes* Telephone Encounter - Rola Gordon [...] Thanks Veronica Hall RN documented in this encounterWexner Medical Center08-11-2022 History of Present illness Narrative* Susan Proctor [...] Intact, Site disposition Discontinued SIGNED BY: RT Jesus(Pilar) February 06, 2022 1:27 PM documented in this encounterWexner Medical Center07-21-2022 Evaluation note* Encounter Date Diagnosis Assessment Notes [...] WILL ORDER SOME TESTING AT THIS TIME [facility] Other 06-09-2022 Nurse Note* Srinivasan See Ma - 12/05/2021 3:09 PM EDT Patient unsure of any of his medications and was instructed to bring a list next time he comes. Srinivasan eSe Melani documented in this encounterWexner Medical Center06-09-2022 History of Present illness Narrative* Zahra May MD - 12/05/2021 3:00 PM EDT Images from the original note were not included. NAME: Ventura Rocio [facility] NO.: [id number] DATE OF SERVICE: December 05, 2021 Referring [...] colonoscopy as well as reports from his horser up. His PFTs are pending, and he was [...] mg by mouth twice daily before meals. fafail-sqorixwe-azqhjvl (CREON 24) 24,000-76,000 -120,000 unit cpDR Take [...] CA 19-9 BLD (K31.5) Duodenal obstruction Plan: bhytbv-habodiix-qjdmqru (CREON 24) 24,000-76,000 -120,000 unit delayed release capsule (D50.9) Iron deficiency anemia, unspecified iron deficiency anemia type Plan: fqufeq-egvgkhgc-uophoip (CREON 24) 24,000-76,000 -120,000 unit delayed release [...] 5 blood transfusions Coronary artery disease involving [place] coronary artery Diabetes mellitus (HCC) 2017 Duodenal cancer (HCC) Dyslipidemia Fatigue Glaucoma Hypertension Myocardial infarction (HCC) 05/15/2011 PTSD (post-traumatic stress disorder) PAST SURGICAL HISTORY Procedure Laterality Date ANGIOPLASTY HX 05/15/2011 2 stents s/p [place];[facility] CHOLECYSTECTOMY 08/11/2017 [facility] COLONOSCOPY PAST SURGICAL HISTORY OF Cardiac [...] which included preparing to see the patient, dgtg-mq-vgcf patient care, completing clinical documentation, obtaining and/or reviewing separately obtained history, performing a medically appropriate examination, counseling and educating the pat ient/family/caregiver and ordering medications, tests, or procedures. Zahra May MD, CPE [facility] [place], [place] CC: Zahra May MD [address] [place] [address] [place] [address] David Caputo MD [address] [place] [phone] [facility] Progress note Author Monico Reyez [facility] June 13, 2021 2:01pm Note Date/Time June 13, 2021 2:00pm [facility] [place] [address] Hem/Onc Follow Up Note - OP Signed Patient: Rocio Jackson MR#: [id number] : 1955 Acct:[id number] Age/Sex: 66 / M Type: REG RCR [...] of the ampulla of Vater resected the [facility] number of years ago and then had adjuvant chemotherapy while I was at [facility]. Rocio is a patient well-known to me. 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 He has been followed since that time. Labs recently drawn at [facility] and are overall negative except for mild macrocytosis. He appears to be doing overall very well Subjective/ROS - Narrative: No new complaints. [facility] - Medical History Medical History: Medical History [...] mg PO DAILY 03/04/19 [History Confirmed 12/13/20] ndcqji-qckgxbju-mujxbcb 24,000-76,000-120,000 unit capsule,delayed rel (Creon) 1cap PO TID 03/04/19 [History Confirmed 12/13/20] metoprolol succinate 25 mg capsule sprinkle, ext. release 24 hr 25 mg PO DAILY 03/04/19 [History Confirmed 12/13/20] empagliflozin 25 mg tablet (Jardiance) 25 mg PO DAILY 02/28/20 [History Confirmed 12/13/20] uvaqyx-tjrldjdt-udbqjux 24,000-76,000-120,000 unit capsule,delayed rel (Creon) 1cap PO [...] for coordination of care (as documented) and ywsq-le-stfr counseling of patient and/or family. Dictated By: Monico Reyez MD DD/ 1359 Signed By: <Electronically signed by MD Monico Reyez> 06/13/21 1401 [facility] Work Phone: 1(126) 777-327906-17-2021 Progress note Author Monico Reyez [facility] December 13, 2020 3:06pm Note Date/Time December 13, 2020 3:05 pm [facility] [place] [address] Hem/Onc Follow Up Note - OP Signed Patient: Rocio Jackson MR#: [id number] : 1955 Acct:[id number] Age/Sex: 65 / M Type: REG RCR [...] received adjuvant capecitabine and gemcitabine. [facility] - Medical History Medical History: Medical History (Last Updated 02/28/20 @ 11:42 by Arnulfo Hernandez, FRANSICO) Anxiety Diabetes HTN (hypertension) Hyperlipemia Iron deficiency [...] for coordination of care (as documented) and cyzv-sn-lqbd counseling of patient and/or family. Dictated By: Monico Reyez MD DD/ 1502 Signed By: <Electronically signed by MD Monico Reyez> 12/13/20 1506 [facility] Work Phone: 1(412) 187-308512-08-2020 Progress note Author Monico Reyez [facility] June 05, 2020 1:30pm Note Date/Time June 05, 2020 1 :18pm [facility] [place] [address] Hem/Onc Follow Up Note - OP Signed Patient: Rocio Jackson MR#: [id number] : 1955 Acct:[id number] Age/Sex: 64 / M Type: REG RCR [...] received adjuvant capecitabine and gemcitabine. [facility] - Medical History Medical History: Medical History (Last Updated 02/28/20 @ 11:42 by Arnulfo Hernandez, RN) Anxiety Diabetes HTN (hypertension) Hyperlipemia Iron [...] % (Auto) 57.8, Lymph % (Auto) 30.5, Jerome % (Auto) 5.8, Eos % (Auto) 5.1, Baso % (Auto) 0.8, Neut # (Auto) 2.9, Lymph # (Auto) 1.5, Jerome # (Auto) 0.3, Eos # (Auto) 0.3, [...] for coordination of care (as documented) and imww-pf-xksj counseling of patient and/or family. Dictated By: Monico Reyez MD DD/ 1312 Signed By: <Electronically signed by MD Monico Reyez> 06/05/20 1330 [facility] Work Phone: 1(159) 358-373509-08-2020 Progress note Author Monico Reyez [facility] March 06, 2020 1:51pm Note Date/Time March 06, 2020 1:50pm [facility] [place] [address] Hem/Onc Follow Up Note - OP Signed Patient: Rocio Jackson MR#: [id number] : 1955 Acct:[id number] Age/Sex: 64 / M Type: REG RCR [...] that time. His latest CT scans at [facility] are negative. His biggestcomplaint today is weakness and fatigue. He does appear very pale overall we will check some basic blood work today and I will see him back in follow-up. [facility] - Medical History Medical History: Medical History [...] for coordination of care (as documented) and uonf-af-wtwa counseling of patient and/or family. Dictated By: Monico Reyez MD DD/ 1349 Signed By: <Electronically signed by MD Monico Reyez> 03/06/20 2716 [facility] Work Phone: 1(679) 810-249209-01-2020 Progress note Author Monico Reyez [facility] February 28, 2020 2:12pm Note Date/Time February 28, 2020 2:10pm [facility] [place] [address] Hem/Onc Follow Up Note - OP Signed Patient: Rocio Jackson MR#: [id number] : 1955 Acct:[id number] Age/Sex: 64 / M Type: REG RCR [...] that time. His latest CT scans at [facility] are negative. His biggestcomplaint today is weakness and fatigue. He does appear very pale overall we will check some basic blood work today and I will see him back in follow-up. [facility] - Medical History Medical History: Medical History [...] % (Auto) 55.0, Lymph % (Auto) 32.7, Jerome % (Auto) 9.3, Eos % (Auto) 2.4, Baso % (Auto) 0.6, Neut # (Auto) 3.0, Lymph # (Auto) 1.8, Jerome # (Auto) 0.5, Eos # (Auto) 0.1, [...] for coordination of care (as documented) and baae-qf-ikab counseling of patient and/or family. Dictated By: Monico Reyez MD DD/ 1409 Signed By: <Electronically signed by MD Monico Reyez> 02/28/20 1412 [facility] Work Phone: Evaluation note* Diagnosis Cancer of [...] body of pancreas [facility] Macrocytosis- Primary Other specified diseases [...] deficiency type [facility] Diagnosis Macrocytosis- Primary Other specified diseases of blood and blood-forming organs Abnormal weight loss Loss of weight Adenocarcinoma (HCC) Other malignant neoplasm without specification of site 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 Iron deficiency anemia, unspecified iron deficiency anemia type [facility] Diagnosis Duodenal obstruction Other obstruction of [...] of Vater [facility] Diagnosis Macrocytosis- Primary Other specified diseases of blood and blood-forming organs Abnormal weight loss Loss of weight Adenocarcinoma (HCC) Other malignant neoplasm without specification of site 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 [facility] Diagnosis 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 Interstitial pulmonary disease (HCC) Postinflammatory pulmonary fibrosis Iron deficiency anemia, unspecified iron deficiency anemia type Anemia due to vitamin B12 deficiency, unspecified B12 deficiency type [facility]* Diagnosis Macrocytosis- Primary Other specified diseases of blood and blood-forming organs Abnormal weight loss Loss of weight Adenocarcinoma (HCC) Other malignant neoplasm without specification of site 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 Anemia due to vitamin B12 deficiency, unspecified B12 deficiency type [facility] Diagnosis 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 Anemia due to vitamin B12 deficiency, unspecified B12 deficiency type Anemia due to folic acid deficiency, unspecified deficiency type Macrocytosis Other specified diseases of blood and blood-forming organs documented [facility]* Diagnosis Macrocytosis- Primary Other specified diseases of blood and blood-forming organs Anemia due to vitamin B12 deficiency, unspecified B12 deficiency type Anemia due to folic acid deficiency, unspecified deficiency type 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 documented in this encounter [facility] [place] [facility] Other Evaluation note* Diagnosis Macrocytosis- Primary Other specified diseases of blood and blood-forming organs Abnormal weight loss Loss of weight Adenocarcinoma (HCC) Other malignant neoplasm without specification of site 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 [facility]* Diagnosis Macrocytosis- Primary Other specified diseases [...] [facility] information [facility] Work Phone: Evaluation note* Diagnosis Anemia [...] malnutrition [facility] [...] rectum and anus [facility] Diagnosis Iron deficiency anemia, unspecified iron deficiency anemia type History of gastric cancer Rectal bleeding Hemorrhage of rectum and anus [facility] Diagnosis Anemia, unspecified type- Primary documented in this encounter [facility]* Diagnosis Iron deficiency anemia, unspecified iron deficiency anemia type Duodenal obstruction Other obstruction of duodenum [facility] Diagnosis Macrocytosis- Primary Other specified diseases of blood and blood-forming organs Abnormal weight loss Loss of weight Adenocarcinoma (HCC) Other malignant neoplasm without specification of site 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 [facility] Diagnosis Iron deficiency anemia secondary to inadequate dietary iron intake- Primary 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 Adenocarcinoma (HCC) Other malignant neoplasm without specification of site Anemia due to vitamin B12 deficiency, unspecified B12 deficiency type Severe protein-calorie malnutrition (HCC) Other severe protein-calorie malnutrition [facility] Diagnosis Onset Date Resolution Status Anxiety acute Decreased appetite acute Pancreas cancer acute [facility] Work Phone: Evaluation note* Diagnosis Macrocytosis- Primary Other specified diseases of blood and blood-forming organs Abnormal weight loss Loss of weight Adenocarcinoma (HCC) Other malignant neoplasm without specification of site 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 [facility] Diagnosis Arteriosclerosis of carotid artery, unspecified [...] mention of psychosis documented in this encounter [facility] Work Phone: Evaluation note* 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) Other malignant neoplasm without specification of site Abnormal weight loss Loss of weight Macrocytosis Other specified diseases of blood and blood-forming organs [facility] Diagnosis Onset Date Resolution Status Bilateral impacted cerumen a cute Dyspnea on exertion acute Pancreas cancer acute Seborrhea of face acute Weakness generalized acute Bilateral cervical radiculopathy acute Type II diabetes mellitus [place] [facility] Work Phone: Evaluation note* 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) Other malignant neoplasm without specification of site Abnormal weight loss Loss of weight Macrocytosis Other specified diseases of blood and blood-forming organs [facility] Diagnosis Iron deficiency anemia secondary to inadequate dietary iron intake- Primary Adenocarcinoma (HCC) Other malignant neoplasm without specification of site 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 Anemia due to vitamin B12 deficiency, unspecified B12 deficiency type [facility] Diagnosis Onset Date Resolution Status Bilateral cervical radiculopathy acute Pancreas cancer acute Type II diabetes mellitus [place] Weakness generalized acute Decreased appetite acute Restless leg syndrome acute [facility] Work Phone: Evaluation note* 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) Other malignant neoplasm without specification of site Abnormal weight loss Loss of weight Macrocytosis Other specified diseases of blood and blood-forming organs [facility] 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) Other malignant neoplasm without specification of site Abnormal weight loss Loss of weight Macrocytosis Other specified diseases of blood and blood-forming organs [facility] Diagnosis Iron deficiency anemia secondary to inadequate dietary iron intake 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 Anemia due to vitamin B12 deficiency, unspecified B12 deficiency type [facility] Diagnosis Cancer of ampulla of Vater [...] [facility] Diagnosis Interstitial pulmonary disease (HCC) Postinflammatory [...] Other malignant neoplasm without specification of site Iron deficiency anemia secondary to inadequate dietary iron intake Gastrointestinal hemorrhage associated with duodenitis documented [facility]* 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 (HCC) Other malignant neoplasm without specification of site Iron deficiency anemia secondary to inadequate dietary iron intake Gastrointestinal hemorrhage associated with duodenitis documented in this encounter [facility] note* 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) Other malignant neoplasm without specification of site Abnormal weight loss Loss of weight Macrocytosis Other specified diseases of blood and blood-forming organs documented in this encounter [facility] note* Diagnosis Small bowel cancer (HCC)- Primary Malignant neoplasm of small intestine, unspecified site Abnormal finding of diagnostic imaging Other nonspecific (abnormal) findings on radiological and other examinations of body structure Leukopenia, unspecified type documented in this encounter [facility] general Narrative - Reported* Type Description Date Surgical History heart stent Surgical History stomach ulcer 2017 Surgical History gallbladder 2018 Surgical History whipple 2018 [employer] Other History general Narrative - Reported* Type Description Date Medical History BMI 20.0-20.9, adult Medical History Paroxysmal atrial fibrillation Medical History Lumbar pain Medical History Essential hypertension Medical History Tachypnea on examination Medical History Dyspnea on exertion Medical History Anxiety, generalized Medical History Anemia, macrocytic Medical History Elevated LFTs Medical History Fatigue Medical History 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 Surgical History heart stent 2010 Surgical History stomach ulcer 2017 Surgical History gallbladder 2018 Surgical History whipple 2018 Surgical History colonoscopy 2020 Hospitalization History SEE SURGICAL HX [employer] Other InstructionsNot on filedocumented in this encounter [facility] SystemInstructionsNot on filedocumented in this encounter [facility] SystemInstructionsNot on filedocumented in this encounter [facility] SystemReason for referral (narrative)* Diagnostic Procedure Only (Routine) - Authorized Specialty Diagnoses / Procedures Referred By Contac t Referred To Contact MOLECULAR & FUNCTIONAL IMAGING Diagnoses Cancer of ampulla of Vater (HCC) Procedures NM PET/CT SKULL-THIGH INITIAL PET IMAGING CT ATTENUATION SKULL BASE MID-THIGH Zahra May MD [address] [place] [address] [place] [address] Molecular & Functional Imaging [address] [place] [address] Referral ID Status Reason Start Date Expiration Date Visits Requested Visits Authorized [id number] Authorized Auto-Generat ed Referral 03/05/2023 03/20/2024 1 1 [facility] for referral (narrative)* Consultation (Routine) - Pending Review Specialty Diagnoses / Procedures Referred By Contac t Referred To Contact Hematology Diagnoses Anemia, unspecified type Rick Zapata DO [address] [place] [address] Gonzales Barnett MD [address] [place] [address] Referral ID Status Reason Start Date Expiration Date Visits Requested Visits Authorized [id number] Pending Review Specialty Services Required 08/10/2023 08/09/2024 1 1 [facility] for referral (narrative)* Consultation (Routine) - Authorized Specialty Diagnoses / Procedures Referred By Contac t Referred To Contact Cardiology Diagnoses Arteriosclerosis of carotid artery, unspecified laterality Procedures Follow Up In Cardiology Irving Abreu DO [address] [facility] [address], [address] [address] Referral ID Status Reason Start Date Expiration Date V isits Requested Visits Authorized [id number] Authorized 10/29/2023 10/28/2024 1 1 [facility] Work Phone: Reason for referral (narrative)* Diagnostic Procedure Only (Routine) - Closed Specialty Diagnoses / Procedures Referred By Contac t Referred To Contact MOLECULAR & FUNCTIONAL IMAGING Diagnoses Cancer of ampulla of Vater (HCC) Procedures NM PET/CT SKULL-THIGH INITIAL PET IMAGING CT ATTENUATION SKULL BASE MID-THIGH Zahra May MD [address] [place] [address] [place] [address] Molecular & Functional Imaging [address] [place] [address] Referral ID Status Reason Start Date Expiration Date V isits Requested Visits Authorized [id number] Closed Auto-Generate d Referral 03/05/2023 03/20/2024 1 1 [facility] for referral (narrative)* Diagnostic Procedure Only (Routine) - Authorized Specialty Diagnoses / Procedures Referred By Marilee nathan Referred To Contact MOLECULAR & FUNCTIONAL IMAGING Diagnoses 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) Iron deficiency anemia secondary to inadequate dietary iron intake Gastrointestinal hemorrhage associated with duodenitis Procedures NM PET/CT SKULL-THIGH SUBSEQUENT PET IMAGING CT ATTENUATION SKULL BASE MID-THIGH Zahra May MD [address] [place] [address] Molecular & Functional Imaging [address] [place] [address] Referral ID Status Reason Start Date Expiration Date Visits Requested Visits Authorized [id number] Authorized Auto-Generat ed Referral 07/16/2025 1 1 [facility] Summary Purpose Family History No Family History Records FoundUnknown Family Member Name Dates Details Family history [...] family member Unknown mother Unknown Advance Directives No Advanced Directives Records Found Advance Directive Response Recorded Date/ Time Advance Directives No August 07, 2017 10:26am Directive Description Status Resuscitation FULL CODE Verified By [facility] Record Only Advance Directive Response Recorded [...] COMPUTED TOMOGRAPHY THORAX W/CONTRAST Zahra May MD [address] [place] [address] [place] [address] Ct Imaging Referral ID Status Reason Start Date Expiration Date Visits Requested Visits Authorized [id number] Authorized Auto-Generat ed Referral 02/04/2022 01/04/2023 1 1 Specialty Diagnoses / Procedures Referred By Marilee nathan Referred To Contact CT IMAGING Diagnoses Iron deficiency anemia, unspecified iron deficiency anemia type 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) Procedures CT ABD/PEL W IVCON CT ABD & PELVIS W/CONTRAST Zahra May MD [address] [place] [address] [place] [address] Ct Imaging Referral ID Status Reason Start Date Expiration Date Visits Requested Visits Authorized [id number] Authorized Auto-Generat ed Referral 02/04/2022 01/04/2023 1 1 Specialty Diagnoses / Procedures Referred By Contac t Referred To Contact CT IMAGING Diagnoses Interstitial pulmonary disease (HCC) Cancer of ampulla of Vater (HCC) Anemia due to vitamin B12 deficiency, unspecified B12 deficiency type Procedures CT CHEST W IVCON DIAGNOSTIC COMPUTED TOMOGRAPHY THORAX W/CONTRAST Zahra May MD [address] [place] [address] Ct Imaging Referral ID Status Reason Start Date Expiration Date Visits Requested Visits Authorized [id number] Authorized Auto-Generat ed Referral 07/04/2022 07/06/2023 1 1 Specialty Diagnoses / Procedures Referred By Contac t Referred To Contact CT IMAGING Diagnoses Interstitial pulmonary disease (HCC) Cancer of ampulla of Vater (HCC) Anemia due to vitamin B12 deficiency, unspecified B12 deficiency type Procedures CT ABD/PEL W IVCON CT ABD & PELVIS W/CONTRAST Zahra May MD [address] [place] [address] [place] [address] Ct Imaging Referral ID Status Reason Start Date Expiration Date Visits Requested Visits Authorized [id number] Authorized Auto-Generat ed Referral 07/04/2022 07/06/2023 1 1 Reason *FU 12/08 Last 2 O V and xray results - thank you Diagnosis 1 Lumbar pain (M54.50) Referral Organization [facility] marly Referring Provider First Name David Referring Provider Last Name Harshal Referring Provider Specialty Family [facility] Referred Organization [facility] Referred Provider Gladis Lopez Referred Address [address], [place],[address] Referred Provider Specialty Pain Medicin e Referral Priority Routine General Notes Dorene Gunter 02:06:36 PM >received today, attachments made, notes locked, referral faxed Clinical Notes F: [phone] Specialty Diagnoses / Procedures Referred By Contac t Referred To Contact CT IMAGING Diagnoses Cancer of ampulla of Vater (HCC) Anemia due to vitamin B12 deficiency, unspecified B12 deficiency type Severe protein-calorie malnutrition (HCC) Procedures CT CHEST W IVCON DIAGNOSTIC COMPUTED TOMOGRAPHY THORAX W/CONTRAST Zahra May MD [address] [place] [address] [place] [address] Referral ID Status Reason Start Date Expiration Date Visits Requested Visits Authorized [id number] Authorized Auto-Generat ed Referral 06/29/2023 04/14/2024 1 1 Specialty Diagnoses / Procedures Referred By Contac t Referred To Contact CT IMAGING Diagnoses Cancer of ampulla of Vater (HCC) Anemia due to vitamin B12 deficiency, unspecified B12 deficiency type Severe protein-calorie malnutrition (HCC) Procedures CT ABD/PEL W IVCON CT ABD & PELVIS W/CONTRAST Zahra May MD [address] [place] [address] [place] [address] [place] [address] Referral ID Status Reason Start Date Expiration Date Visits Requested Visits Authorized [id number] Authorized Auto-Generat ed Referral 06/29/2023 04/14/2024 1 1 Specialty Diagnoses / Procedures Referred By Contac t Referred To Contact Diagnoses Iron deficiency anemia, unspecified iron deficiency anemia type History of gastric cancer Rectal bleeding Procedures EGD / Colonoscopy Rick [facility], [address] [place] [address] Referral ID Status Reason Start Date Expiration Date V isits Requested Visits Authorized [id number] Pending Review 07/17/2023 07/16/2024 1 1 Specialty Diagnoses / Procedures Referred By Contac t Referred To Contact CT IMAGING Diagnoses Iron deficiency anemia secondary to inadequate dietary iron intake Cancer of ampulla of Vater (HCC) Anemia due to vitamin B12 deficiency, unspecified B12 deficiency type Procedures CT CHEST W IVCON DIAGNOSTIC COMPUTED TOMOGRAPHY THORAX W/CONTRAST Zahra aMy MD [address] [place] [address] [place] [address] [place] [address] Referral ID Status Reason Start Date Expiration Date Visits Requested Visits Authorized [id number] Authorized Auto-Generat ed Referral 03/04/2024 01/01/2025 1 1 Specialty Diagnoses / Procedures Referred By Contac t Referred To Contact CT IMAGING Diagnoses Iron deficiency anemia secondary to inadequate dietary iron intake Cancer of ampulla of Vater (HCC) Anemia due to vitamin B12 deficiency, unspecified B12 deficiency type Procedures CT ABD/PEL W IVCON CT ABD & PELVIS W/CONTRAST Zahra May MD [address] [place] [address] [place] [address] Referral ID Status Reason Start Date Expiration Date Visits Requested Visits Authorized [id number] Authorized Auto-Generat ed Referral 03/04/2024 01/01/2025 1 1 Referral ID Status Reason Start Date Expiration Date V isits Requested Visits Authorized [id number] Closed Auto-Generate d Referral 03/04/2024 01/01/2025 1 1 Referral ID Status Reason Start Date Expiration Date V isits Requested Visits Authorized [id number] Closed Auto-Generate d Referral 03/04/2024 01/01/2025 1 1 Referral ID Status Reason Start Date Expiration Date V isits Requested Visits Authorized [id number] Closed Auto-Generate d Referral 06/29/2023 04/14/2024 1 1 Referral ID Status Reason Start Date Expiration Date V isits Requested Visits Authorized [id number] Closed Auto-Generate d Referral 06/29/2023 04/14/2024 1 1 Specialty Diagnoses / Procedures Referred By Contac t Referred To Contact CT IMAGING Diagnoses Cancer of ampulla of Vater (HCC) Iron deficiency anemia secondary to inadequate dietary iron intake Anemia due to vitamin B12 deficiency, unspecified B12 deficiency type Procedures CT CHEST W IVCON DIAGNOSTIC COMPUTED TOMOGRAPHY THORAX W/CONTRAST Zahra May MD [address] [place] [address] [place] [address] Referral ID Status Reason Start Date Expiration Date Visits Requested Visits Authorized [id number] New Request Auto-Generat ed Referral 04/09/2025 1 1 Specialty Diagnoses / [facility] Diagnoses Cancer of ampulla of Vater (HCC) Iron deficiency anemia secondary to inadequate dietary iron intake Anemia due to vitamin B12 deficiency, unspecified B12 deficiency type Procedures CT ABD/PEL W IVCON CT ABD & PELVIS W/CONTRAST Zahra May MD [address] [place] [address] [place] [address] Referral ID Status Reason Start Date Expiration Date Visits Requested Visits Authorized [id number] New Request Auto-Generat ed Referral 04/09/2025 1 1 Specialty Diagnoses / Procedures Referred By Contac t Referred To Contact CT IMAGING Diagnoses Interstitial pulmonary disease (HCC) Cancer of ampulla of Vater (HCC) Anemia due to vitamin B12 deficiency, unspecified B12 deficiency type Procedures CT CHEST W IVCON DIAGNOSTIC COMPUTED TOMOGRAPHY THORAX W/CONTRAST Zahra May MD [address] [place] [address] [place] [address] Referral ID Status Reason Start Date Expiration Date V isits Requested Visits Authorized [id number] Closed Auto-Generate d Referral 07/04/2022 07/06/2023 1 1 Specialty Diagnoses / Procedures Referred By Contac t Referred To Contact CT IMAGING Diagnoses Interstitial pulmonary disease (HCC) Cancer of ampulla of Vater (HCC) Anemia due to vitamin B12 deficiency, unspecified B12 deficiency type Procedures CT ABD/PEL W IVCON CT ABD & PELVIS W/CONTRAST Zahra May MD [address] [place] [address] [place] [address] Referral ID Status Reason Start Date Expiration Date V isits Requested Visits Authorized [id number] Closed Auto-Generate d Referral 07/04/2022 07/06/2023 1 1 Specialty Diagnoses / Procedures Referred By Contac t Referred To Contact CT IMAGING Diagnoses Iron deficiency anemia, unspecified iron deficiency anemia type 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) Procedures CT CHEST W IVCON DIAGNOSTIC COMPUTED TOMOGRAPHY THORAX W/CONTRAST Zahra May MD [address] [place] [address] [place] [address] Referral ID Status Reason Start Date Expiration Date V isits Requested Visits Authorized [id number] Closed Auto-Generate d Referral 02/04/2022 01/04/2023 1 1 Specialty Diagnoses / Procedures Referred By Contac t Referred To Contact CT IMAGING Diagnoses Iron deficiency anemia, unspecified iron deficiency anemia type 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) Procedures CT ABD/PEL W IVCON CT ABD & PELVIS W/CONTRAST Zahra May MD [address] [place], [place] [address] [place] [address] [place] [address] Referral ID Status Reason Start Date Expiration Date V isits Requested Visits Authorized [id number] Closed Auto-Generate d Referral 02/04/2022 01/04/2023 1 1 Specialty Diagnoses / Procedures Referred By Contac t Referred To Contact General Surgery Diagnoses Small bowel cancer (HCC) Abnormal finding of diagnostic imaging Procedures CONSULT TO GENERAL SURGERY OFFICE/OUTPATIENT [facility] 60 MINUTES Zahra May MD [address] [place] [address] [place] [address] Referral ID Status Reason Start Date Expiration Date Visits Requested Visits Authorized [id number] Authorized PCP Requested Referral 07/15/2024 07/15/2025 1 1 Medications Administered Section Inactive Administered [...] and content) DATE CREATED AUTHOR 12/17/2017 [facility] DATE CREATED AUTHOR AUTHOR'S ORGANIZ ATION 12/31/2017 [facility] DATE CREATED AUTHOR AUTHOR'S ORGANIZ ATION 07/22/2022 [facility] DATE CREATED AUTHOR AUTHOR'S ORGANIZ ATION 09/17/2022 [facility] DATE CREATED AUTHOR AUTHOR'S ORGANIZ ATION 10/03/2022 [facility] DATE CREATED AUTHOR AUTHOR'S ORGANIZ ATION 08/09/2023 [facility] DATE CREATED AUTHOR AUTHOR'S ORGANIZ ATION 06/02/2024 [facility] DATE CREATED AUTHOR AUTHOR'S ORGANIZ ATION 07/18/2024 [facility] DATE CREATED AUTHOR AUTHOR'S ORGANIZ ATION 07/22/2024 [facility] Comments (unrecognize d section and content) In the event this informatio n is protected by the Federal Confidentiality of Alcohol and Drug Abuse Patient Records regulations: The Federal rules restrict any use of the information to criminally investigate or prosecute any alcohol or drug abuse patient.[facility] the event this information is protected by the Federal Confidentiality of Alcohol and Drug Abuse Patient Records regulations: The Federal rules restrict any use of the information to criminally investigate or prosecute any alcohol or drug abuse patient.[facility] the event this information is protected by the Federal Confidentiality of Alcohol and Drug Abuse Patient Records regulations: The Federal rules restrict any use of the information to criminally investigate or prosecute any alcohol or drug abuse patient.[facility] CenterIn the event this information is protected by the Federal Confidentiality of Alcohol and Drug Abuse Patient Records regulations: The Federal rules restrict any use of the information to criminally investigate or prosecute any alcohol or drug abuse patient.[facility] CenterIn the event this information is protected by the Federal Confidentiality of Alcohol and Drug Abuse Patient Records regulations: The Federal rules restrict any use of the information to criminally investigate or prosecute any alcohol or drug abuse patient.[facility] CenterIn the event this information is protected by the Federal Confidentiality of Alcohol and Drug Abuse Patient Records regulations: The Federal rules restrict any use of the information to criminally investigate or prosecute any alcohol or drug abuse patient.[facility] CenterIn the event this information is protected by the Federal Confidentiality of Alcohol and Drug Abuse Patient Records regulations: The Federal rules restrict any use of the information to criminally investigate or prosecute any alcohol or drug abuse patient.[facility] CenterIn the event this information is protected by the Federal Confidentiality of Alcohol and Drug Abuse Patient Records regulations: The Federal rules restrict any use of the information to criminally investigate or prosecute any alcohol or drug abuse patient.[facility] CenterIn the event this information is protected by the Federal Confidentiality of Alcohol and Drug Abuse Patient Records regulations: The Federal rules restrict any use of the information to criminally investigate or prosecute any alcohol or drug abuse patient.[facility] CenterIn the event this information is protected by the Federal Confidentiality of Alcohol and Drug Abuse Patient Records regulations: The Federal rules restrict any use of the information to criminally investigate or prosecute any alcohol or drug abuse patient.[facility] CenterIn the event this information is protected by the Federal Confidentiality of Alcohol and Drug Abuse Patient Records regulations: The Federal rules restrict any use of the information to criminally investigate or prosecute any alcohol or drug abuse patient.[facility] CenterIn the event this information is protected by the Federal Confidentiality of Alcohol and Drug Abuse Patient Records regulations: The Federal rules restrict any use of the information to criminally investigate or prosecute any alcohol or drug abuse patient.[facility] CenterIn the event this information is protected by the Federal Confidentiality of Alcohol and Drug Abuse Patient Records regulations: The Federal rules restrict any use of the information to criminally investigate or prosecute any alcohol or drug abuse patient.[facility] CenterIn the event this information is protected by the Federal Confidentiality of Alcohol and Drug Abuse Patient Records regulations: The Federal rules restrict any use of the information to criminally investigate or prosecute any alcohol or drug abuse patient.[facility] CenterIn the event this information is protected by the Federal Confidentiality of Alcohol and Drug Abuse Patient Records regulations: The Federal rules restrict any use of the information to criminally investigate or prosecute any alcohol or drug abuse patient.[facility] CenterIn the event this information is protected by the Federal Confidentiality of Alcohol and Drug Abuse Patient Records regulations: The Federal rules restrict any use of the information to criminally investigate or prosecute any alcohol or drug abuse patient.[facility] CenterIn the event this information is protected by the Federal Confidentiality of Alcohol and Drug Abuse Patient Records regulations: The Federal rules restrict any use of the information to criminally investigate or prosecute any alcohol or drug abuse patient.[facility] CenterIn the event this information is protected by the Federal Confidentiality of Alcohol and Drug Abuse Patient Records regulations: The Federal rules restrict any use of the information to criminally investigate or prosecute any alcohol or drug abuse patient.[facility] CenterIn the event this information is protected by the Federal Confidentiality of Alcohol and Drug Abuse Patient Records regulations: The Federal rules restrict any use of the information to criminally investigate or prosecute any alcohol or drug abuse patient.[facility] CenterIn the event this information is protected by the Federal Confidentiality of Alcohol and Drug Abuse Patient Records regulations: The Federal rules restrict any use of the information to criminally investigate or prosecute any alcohol or drug abuse patient.[facility] CenterIn the event this information is protected by the Federal Confidentiality of Alcohol and Drug Abuse Patient Records regulations: The Federal rules restrict any use of the information to criminally investigate or prosecute any alcohol or drug abuse patient.[facility] CenterIn the event this information is protected by the Federal Confidentiality of Alcohol and Drug Abuse Patient Records regulations: The Federal rules restrict any use of the information to criminally investigate or prosecute any alcohol or drug abuse patient.[facility] CenterIn the event this information is protected by the Federal Confidentiality of Alcohol and Drug Abuse Patient Records regulations: The Federal rules restrict any use of the information to criminally investigate or prosecute any alcohol or drug abuse patient.[facility] CenterIn the event this information is protected by the Federal Confidentiality of Alcohol and Drug Abuse Patient Records regulations: The Federal rules restrict any use of the information to criminally investigate or prosecute any alcohol or drug abuse patient.[facility] CenterIn the event this information is protected by the Federal Confidentiality of Alcohol and Drug Abuse Patient Records regulations: The Federal rules restrict any use of the information to criminally investigate or prosecute any alcohol or drug abuse patient.[facility] CenterIn the event this information is protected by the Federal Confidentiality of Alcohol and Drug Abuse Patient Records regulations: The Federal rules restrict any use of the information to criminally investigate or prosecute any alcohol or drug abuse patient.[facility] CenterIn the event this information is protected by the Federal Confidentiality of Alcohol and Drug Abuse Patient Records regulations: The Federal rules restrict any use of the information to criminally investigate or prosecute any alcohol or drug abuse patient.[facility] CenterIn the event this information is protected by the Federal Confidentiality of Alcohol and Drug Abuse Patient Records regulations: The Federal rules restrict any use of the information to criminally investigate or prosecute any alcohol or drug abuse patient.[facility] CenterIn the event this information is protected by the Federal Confidentiality of Alcohol and Drug Abuse Patient Records regulations: The Federal rules restrict any use of the information to criminally investigate or prosecute any alcohol or drug abuse patient.[facility] CenterIn the event this information is protected by the Federal Confidentiality of Alcohol and Drug Abuse Patient Records regulations: The Federal rules restrict any use of the information to criminally investigate or prosecute any alcohol or drug abuse patient.[facility] CenterIn the event this information is protected by the Federal Confidentiality of Alcohol and Drug Abuse Patient Records regulations: The Federal rules restrict any use of the information to criminally investigate or prosecute any alcohol or drug abuse patient.[facility] CenterIn the event this information is protected by the Federal Confidentiality of Alcohol and Drug Abuse Patient Records regulations: The Federal rules restrict any use of the information to criminally investigate or prosecute any alcohol or drug abuse patient.[facility] CenterIn the event this information is protected by the Federal Confidentiality of Alcohol and Drug Abuse Patient Records regulations: The Federal rules restrict any use of the information to criminally investigate or prosecute any alcohol or drug abuse patient.[facility] CenterIn the event this information is protected by the Federal Confidentiality of Alcohol and Drug Abuse Patient Records regulations: The Federal rules restrict any use of the information to criminally investigate or prosecute any alcohol or drug abuse patient.[facility] CenterIn the event this information is protected by the Federal Confidentiality of Alcohol and Drug Abuse Patient Records regulations: The Federal rules restrict any use of the information to criminally investigate or prosecute any alcohol or drug abuse patient.[facility] CenterIn the event this information is protected by the Federal Confidentiality of Alcohol and Drug Abuse Patient Records regulations: The Federal rules restrict any use of the information to criminally investigate or prosecute any alcohol or drug abuse patient.[facility] CenterIn the event this information is protected by the Federal Confidentiality of Alcohol and Drug Abuse Patient Records regulations: The Federal rules restrict any use of the information to criminally investigate or prosecute any alcohol or drug abuse patient.[facility] CenterIn the event this information is protected by the Federal Confidentiality of Alcohol and Drug Abuse Patient Records regulations: The Federal rules restrict any use of the information to criminally investigate or prosecute any alcohol or drug abuse patient.[facility] CenterIn the event this information is protected by the Federal Confidentiality of Alcohol and Drug Abuse Patient Records regulations: The Federal rules restrict any use of the information to criminally investigate or prosecute any alcohol or drug abuse patient.[facility] CenterIn the event this information is protected by the Federal Confidentiality of Alcohol and Drug Abuse Patient Records regulations: The Federal rules restrict any use of the information to criminally investigate or prosecute any alcohol or drug abuse patient.[facility] CenterIn the event this information is protected by the Federal Confidentiality of Alcohol and Drug Abuse Patient Records regulations: The Federal rules restrict any use of the information to criminally investigate or prosecute any alcohol or drug abuse patient.[facility] CenterIn the event this information is protected by the Federal Confidentiality of Alcohol and Drug Abuse Patient Records regulations: The Federal rules restrict any use of the information to criminally investigate or prosecute any alcohol or drug abuse patient.[facility] CenterIn the event this information is protected by the Federal Confidentiality of Alcohol and Drug Abuse Patient Records regulations: The Federal rules restrict any use of the information to criminally investigate or prosecute any alcohol or drug abuse patient.[facility] the event this information is protected by the Federal Confidentiality of Alcohol and Drug Abuse Patient Records regulations: The Federal rules restrict any use of the information to criminally investigate or prosecute any alcohol or drug abuse patient.[facility] CenterIn the event this information is protected by the Federal Confidentiality of Alcohol and Drug Abuse Patient Records regulations: The Federal rules restrict any use of the information to criminally investigate or prosecute any alcohol or drug abuse patient.[facility] CenterIn the event this information is protected by the Federal Confidentiality of Alcohol and Drug Abuse Patient Records regulations: The Federal rules restrict any use of the information to criminally investigate or prosecute any alcohol or drug abuse patient.[facility] the event this information is protected by the Federal Confidentiality of Alcohol and Drug Abuse Patient Records regulations: The Federal rules restrict any use of the information to criminally investigate or prosecute any alcohol or drug abuse patient.[facility] CenterIn the event this information is protected by the Federal Confidentiality of Alcohol and Drug Abuse Patient Records regulations: The Federal rules restrict any use of the information to criminally investigate or prosecute any alcohol or drug abuse patient.[facility] CenterIn the event this information is protected by the Federal Confidentiality of Alcohol and Drug Abuse Patient Records regulations: The Federal rules restrict any use of the information to criminally investigate or prosecute any alcohol or drug abuse patient.[facility] CenterIn the event this information is protected by the Federal Confidentiality of Alcohol and Drug Abuse Patient Records regulations: The Federal rules restrict any use of the information to criminally investigate or prosecute any alcohol or drug abuse patient.[facility] CenterIn the event this information is protected by the Federal Confidentiality of Alcohol and Drug Abuse Patient Records regulations: The Federal rules restrict any use of the information to criminally investigate or prosecute any alcohol or drug abuse patient.[facility] CenterIn the event this information is protected by the Federal Confidentiality of Alcohol and Drug Abuse Patient Records regulations: The Federal rules restrict any use of the information to criminally investigate or prosecute any alcohol or drug abuse patient.[facility] CenterIn the event this information is protected by the Federal Confidentiality of Alcohol and Drug Abuse Patient Records regulations: The Federal rules restrict any use of the information to criminally investigate or prosecute any alcohol or drug abuse patient.[facility] CenterIn the event this information is protected by the Federal Confidentiality of Alcohol and Drug Abuse Patient Records regulations: The Federal rules restrict any use of the information to criminally investigate or prosecute any alcohol or drug abuse patient.[facility] CenterIn the event this information is protected by the Federal Confidentiality of Alcohol and Drug Abuse Patient Records regulations: The Federal rules restrict any use of the information to criminally investigate or prosecute any alcohol or drug abuse patient.[facility] CenterIn the event this information is protected by the Federal Confidentiality of Alcohol and Drug Abuse Patient Records regulations: The Federal rules restrict any use of the information to criminally investigate or prosecute any alcohol or drug abuse patient.[facility] CenterIn the event this information is protected by the Federal Confidentiality of Alcohol and Drug Abuse Patient Records regulations: The Federal rules restrict any use of the information to criminally investigate or prosecute any alcohol or drug abuse patient.[facility] CenterIn the event this information is protected by the Federal Confidentiality of Alcohol and Drug Abuse Patient Records regulations: The Federal rules restrict any use of the information to criminally investigate or prosecute any alcohol or drug abuse patient.[facility] CenterIn the event this information is protected by the Federal Confidentiality of Alcohol and Drug Abuse Patient Records regulations: The Federal rules restrict any use of the information to criminally investigate or prosecute any alcohol or drug abuse patient.[facility] CenterIn the event this information is protected by the Federal Confidentiality of Alcohol and Drug Abuse Patient Records regulations: The Federal rules restrict any use of the information to criminally investigate or prosecute any alcohol or drug abuse patient.[facility] CenterIn the event this information is protected by the Federal Confidentiality of Alcohol and Drug Abuse Patient Records regulations: The Federal rules restrict any use of the information to criminally investigate or prosecute any alcohol or drug abuse patient.[facility] CenterIn the event this information is protected by the Federal Confidentiality of Alcohol and Drug Abuse Patient Records regulations: The Federal rules restrict any use of the information to criminally investigate or prosecute any alcohol or drug abuse patient.[facility] CenterIn the event this information is protected by the Federal Confidentiality of Alcohol and Drug Abuse Patient Records regulations: The Federal rules restrict any use of the information to criminally investigate or prosecute any alcohol or drug abuse patient.[facility] CenterIn the event this information is protected by the Federal Confidentiality of Alcohol and Drug Abuse Patient Records regulations: The Federal rules restrict any use of the information to criminally investigate or prosecute any alcohol or drug abuse patient.[facility] Center[facility] the event this information is protected by the Federal Confidentiality of Alcohol and Drug Abuse Patient Records regulations: The Federal rules restrict any use of the information to criminally investigate or prosecute any alcohol or drug abuse patient.[facility] CenterIn the event this information is protected by the Federal Confidentiality of Alcohol and Drug Abuse Patient Records regulations: The Federal rules restrict any use of the information to criminally investigate or prosecute any alcohol or drug abuse patient.[facility] CenterIn the event this information is protected by the Federal Confidentiality of Alcohol and Drug Abuse Patient Records regulations: The Federal rules restrict any use of the information to criminally investigate or prosecute any alcohol or drug abuse patient.[facility] CenterIn the event this information is protected by the Federal Confidentiality of Alcohol and Drug Abuse Patient Records regulations: The Federal rules restrict any use of the information to criminally investigate or prosecute any alcohol or drug abuse patient.[facility] CenterIn the event this information is protected by the Federal Confidentiality of Alcohol and Drug Abuse Patient Records regulations: The Federal rules restrict any use of the information to criminally investigate or prosecute any alcohol or drug abuse patient.[facility] CenterIn the event this information is protected by the Federal Confidentiality of Alcohol and Drug Abuse Patient Records regulations: The Federal rules restrict any use of the information to criminally investigate or prosecute any alcohol or drug abuse patient.[facility] CenterIn the event this information is protected by the Federal Confidentiality of Alcohol and Drug Abuse Patient Records regulations: The Federal rules restrict any use of the information to criminally investigate or prosecute any alcohol or drug abuse patient.[facility] CenterIn the event this information is protected by the Federal Confidentiality of Alcohol and Drug Abuse Patient Records regulations: The Federal rules restrict any use of the information to criminally investigate or prosecute any alcohol or drug abuse patient.[facility] CenterIn the event this information is protected by the Federal Confidentiality of Alcohol and Drug Abuse Patient Records regulations: The Federal rules restrict any use of the information to criminally investigate or prosecute any alcohol or drug abuse patient.[facility] CenterIn the event this information is protected by the Federal Confidentiality of Alcohol and Drug Abuse Patient Records regulations: The Federal rules restrict any use of the information to criminally investigate or prosecute any alcohol or drug abuse patient.[facility] CenterIn the event this information is protected by the Federal Confidentiality of Alcohol and Drug Abuse Patient Records regulations: The Federal rules restrict any use of the information to criminally investigate or prosecute any alcohol or drug abuse patient.[facility] CenterIn the event this information is protected by the Federal Confidentiality of Alcohol and Drug Abuse Patient Records regulations: The Federal rules restrict any use of the information to criminally investigate or prosecute any alcohol or drug abuse patient.[facility] CenterIn the event this information is protected by the Federal Confidentiality of Alcohol and Drug Abuse Patient Records regulations: The Federal rules restrict any use of the information to criminally investigate or prosecute any alcohol or drug abuse patient.[facility] CenterIn the event this information is protected by the Federal Confidentiality of Alcohol and Drug Abuse Patient Records regulations: The Federal rules restrict any use of the information to criminally investigate or prosecute any alcohol or drug abuse patient.[facility] CenterIn the event this information is protected by the Federal Confidentiality of Alcohol and Drug Abuse Patient Records regulations: The Federal rules restrict any use of the information to criminally investigate or prosecute any alcohol or drug abuse patient.[facility] CenterIn the event this information is protected by the Federal Confidentiality of Alcohol and Drug Abuse Patient Records regulations: The Federal rules restrict any use of the information to criminally investigate or prosecute any alcohol or drug abuse patient.[facility] Care Teams (unrecognized sec tion and content) [...] November 27, 2023 End: November 27, 2023 Applications Engineer Relationship Specialty Start Date End Date David Caputo MD [address] [place] [address] PCP - General Family Practice 12/13/19 Aamir Segura DO Physician Hematology/Oncology 07/13/19 Rola Gordon, 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[employer] [address] [place] [address] Nurse Practitioner Hematology/Oncology 07/13/19 Applications Engineer Relationship Specialty Start Date End Date David Caputo MD [address] [place] [address] PCP - General Family Practice 12/13/19 Aamir Segura DO Physician Hematology/Oncology 07/13/19 Rola Gordon, 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[employer] TA[employer] [address] [place] [address] Nurse Practitioner Hematology/Oncology 07/13/19 Applications Engineer Relationship Specialty Start Date End Date David Caputo MD [address] [place] [address] PCP - General Family Practice 12/13/19 Aamir Segura, DO Physician Hematology/Oncology 07/13/19 Rola Gordon, 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[employer]UM[employer] TA[employer]ER [address] [place] [address] Nurse Practitioner Hematology/Oncology 07/13/19 Applications Engineer Relationship Specialty Start Date End Date David Caputo MD [address] [place] [address] PCP - General Family Practice 12/13/19 Aamir Segura DO Physician Hematology/Oncology 07/13/19 Rola Gordon, 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[employer] TAILER [address] [place] [address] Nurse Practitioner Hematology/Oncology 07/13/19 Applications Engineer Relationship Specialty Start Date End Date David Caputo MD [address] [place] [address] PCP - General Family Practice 12/13/19 Aamir Segura DO Physician Hematology/Oncology 07/13/19 Rola Gordon, 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[employer] TA[employer]ER [address] [place] [address] Nurse Practitioner Hematology/Oncology 07/13/19 Applications Engineer Relationship Specialty Start Date End Date David Caputo MD [address] [place] [address] PCP - General Family Practice 12/13/19 Aamir Segura DO Physician Hematology/Oncology 07/13/19 Rola Gordon, 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[employer]UM[employer] TAILER [address] [address] Nurse Practitioner Hematology/Oncology 07/13/19 Applications Engineer Relationship Specialty Start Date End Date David Caputo MD [address] [place] [address] PCP - General Family Practice 12/13/19 Aamir Segura DO Physician Hematology/Oncology 07/13/19 Rola Gordon, 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LUM[employer] TAILER [address] [address] Nurse Practitioner Hematology/Oncology 07/13/19 Applications Engineer Relationship Specialty Start Date End Date David Caputo MD [address] [place] [address] PCP - General Family Practice 12/13/19 Aamir Segura DO Physician Hematology/Oncology 07/13/19 Rola Gordon, 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LUM[employer] TAILER [address] [address] Nurse Practitioner Hematology/Oncology 07/13/19 Applications Engineer Relationship Specialty Start Date End Date David Caputo MD [address] [place] [address] PCP - General Family Practice 12/13/19 Aamir Segura DO Physician Hematology/Oncology 07/13/19 Rola Gordon, 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LUM[employer] TAILER [address] [place], [place] [address] Nurse Practitioner Hematology/Oncology 07/13/19 Applications Engineer Relationship Specialty Start Date End Date David Caputo MD [address] [place] [address] PCP - General Family Practice 12/13/19 Aamir Segura DO Physician Hematology/Oncology 07/13/19 Rola Gordon, 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LUM[employer] TAILER [address] [address] Nurse Practitioner Hematology/Oncology 07/13/19 Applications Engineer Relationship Specialty Start Date End Date David Caputo MD [address] [place] [address] PCP - General Family Practice 12/13/19 Aamir Segura DO Physician Hematology/Oncology 07/13/19 Rola Gordon, 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LUM[employer] TAILER [address] [place] [address] Nurse Practitioner Hematology/Oncology 07/13/19 Applications Engineer Relationship Specialty Start Date End Date David Caputo MD [address] [place] [address] PCP - General Family Medicine 12/13/19 Aamir Segura DO Physician Hematology/Oncology 07/13/19 Rola Gordon, 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LUM[employer] TAILER [address] [address] Nurse Practitioner Hematology/Oncology 07/13/19 Applications Engineer Relationship Specialty Start Date End Date David Caputo MD [address] [place] [address] PCP - General Family Medicine 12/13/19 Aamir Segura DO Physician Hematology/Oncology 07/13/19 Rola Gordon, 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LUMBER TAILER [address] [place] [address] Nurse Practitioner Hematology/Oncology 07/13/19 Applications Engineer Relationship Specialty Start Date End Date David Caputo MD [address] [place] [address] PCP - General Family Medicine 12/13/19 Aamir Segura DO Physician Hematology/Oncology 07/13/19 Rola Gordon, 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LUM[employer] TAILER [address] [place] [address] Nurse Practitioner Hematology/Oncology 07/13/19 Applications Engineer Relationship Specialty Start Date End Date David Caputo MD [address] [place] [address] PCP - General Family Medicine 12/13/19 Aamir Segura DO Physician Hematology/Oncology 07/13/19 Rola Gordon, 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LUMBER TAILER [address] [place] [address] Nurse Practitioner Hematology/Oncology 07/13/19 Applications Engineer Relationship Specialty Start Date End Date David Caputo MD [address] [place] [address] PCP - General Family Medicine 12/13/19 Aamir Segura DO Physician Hematology/Oncology 07/13/19 Rola Gordon, 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[facility] [address] [place], [place] [address] Nurse Practitioner Hematology/Oncology 07/13/19 Applications Engineer Relationship Specialty Start Date End Date David Caputo MD [address] [place] [address] PCP - General Family Medicine 12/13/19 Aamir Segura, Physician Hematology/Oncology 07/13/19 Rola Gordon, 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LUMBER TAILER [address] [place] [address] Nurse Practitioner Hematology/Oncology 07/13/19 Applications Engineer Relationship Specialty Start Date End Date David Caputo MD [address] [place] [address] PCP - General Family Medicine 12/13/19 Aamir Segura, Physician Hematology/Oncology 07/13/19 Rola Gordon, 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LUM[employer] TAILER [address] [address] Nurse Practitioner Hematology/Oncology 07/13/19 Applications Engineer Relationship Specialty Start Date End Date David Caputo MD [address] [place] [address] PCP - General Family Medicine 12/13/19 Aamir Segura DO Physician Hematology/Oncology 07/13/19 Rola Gordon, 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LUM[employer] TAILER [address] [place] [address] Nurse Practitioner Hematology/Oncology 07/13/19 Applications Engineer Relationship Specialty Start Date End Date aDvid Caputo MD [address] [place] [address] PCP - General Family Medicine 12/13/19 Aamir Segura DO Physician Hematology/Oncology 07/13/19 Rola Gordon, 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LUM[employer] TAILER [address] [place] [address] Nurse Practitioner Hematology/Oncology 07/13/19 Applications Engineer Relationship Specialty Start Date End Date David Caputo MD [address] [place] [address] PCP - General Family Medicine 12/13/19 Aamir Segura DO Physician Hematology/Oncology 07/13/19 Rola Gordon, 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LUM[employer] TAILER [address] [place] [address] Nurse Practitioner Hematology/Oncology 07/13/19 Applications Engineer Relationship Specialty Start Date End Date David Caputo MD [address] [place] [address] PCP - General Family Medicine 12/13/19 Aamir Segura DO Physician Hematology/Oncology 07/13/19 Rola Gordon, 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LUM[employer] TAILER [address] [address] Nurse Practitioner Hematology/Oncology 07/13/19 Applications Engineer Relationship Specialty Start Date End Date David Caputo MD [address] [place] [address] PCP - General Family Medicine 12/13/19 Aamir Segura DO Physician Hematology/Oncology 07/13/19 Rola Gordon, 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LUM[employer] TA[employer]ER [address] [address] Nurse Practitioner Hematology/Oncology 07/13/19 Applications Engineer Relationship Specialty Start Date End Date David Caputo MD [address] [place] [address] PCP - General Family Medicine 12/13/19 Aamir Segura DO Physician Hematology/Oncology 07/13/19 Rola Gordon, 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LUM[employer] TAILER [address] [address] Nurse Practitioner Hematology/Oncology 07/13/19 Applications Engineer Relationship Specialty Start Date End Date David Caputo MD [address] [place] [address] PCP - General Family Medicine 12/13/19 Aamri Segura DO Physician Hematology/Oncology 07/13/19 Rola Gordon, 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[employer]UM[employer] TAILER [address] [address] Nurse Practitioner Hematology/Oncology 07/13/19 Applications Engineer Relationship Specialty Start Date End Date David Caputo MD [address] [place] [address] PCP - General Family Medicine 12/13/19 Aamir Segura DO Physician Hematology/Oncology 07/13/19 Rola Gordon, 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LUM[employer] TAILER [address] [address] Nurse Practitioner Hematology/Oncology 07/13/19 Applications Engineer Relationship Specialty Start Date End Date David Caputo MD [address] [place] [address] PCP - General Family Medicine 12/13/19 Aamir Segura DO Physician Hematology/Oncology 07/13/19 Rola Gordon, 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LUM[employer] TAILER [address] [address] Nurse Practitioner Hematology/Oncology 07/13/19 Team Status: Inactive Member Role Status Dates David Caputo MD Primary Care Provider Active Adriane Espitia MD Attending Provider Active Applications Engineer Relationship Specialty Start Date End Date David Caputo MD [address] [place] [address] PCP - General Family Medicine 12/13/19 Aamir Segura DO Physician Hematology/Oncology 07/13/19 Rola Gordon, 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[employer]UM[employer] TA[employer]ER [address] [address] Nurse Practitioner Hematology/Oncology 07/13/19 Applications Engineer Relationship Specialty Start Date End Date David Caputo MD [address] [place] [address] PCP - General Family Medicine 12/13/19 Aamir Segura DO Physician Hematology/Oncology 07/13/19 Rola Gordon, 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LUM[employer] TAILER [address] [address] Nurse Practitioner Hematology/Oncology 07/13/19 Applications Engineer Relationship Specialty Start Date End Date David Caputo MD [address] [place] [address] PCP - General Family Medicine 12/13/19 Aamir Segura DO Physician Hematology/Oncology 07/13/19 Rola Gordon, 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LUM[employer] TAILER [address] [address] Nurse Practitioner Hematology/Oncology 07/13/19 Applications Engineer Relationship Specialty Start Date End Date David Caputo MD [address] [place] [address] PCP - General Family Medicine 12/13/19 Aamir Segura DO Physician Hematology/Oncology 07/13/19 Rola Gordon, 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LUM[employer] TAILER [address] [place] [address] Nurse Practitioner Hematology/Oncology 07/13/19 Applications Engineer Relationship Specialty Start Date End Date David Caputo MD [address] [place] [address] PCP - General Family Medicine 12/13/19 Aamir Segura DO Physician Hematology/Oncology 07/13/19 Rola Gordon, 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LUM[employer] TAILER [address] [address] Nurse Practitioner Hematology/Oncology 07/13/19 Applications Engineer Relationship Specialty Start Date End Date David Caputo MD [address] [place] [address] PCP - General Family Medicine 12/13/19 Aamir Segura DO Physician Hematology/Oncology 07/13/19 Rola Gordon, 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LUM[employer] TAILER [address] [address] Nurse Practitioner Hematology/Oncology 07/13/19 Applications Engineer Relationship Specialty Start Date End Date David Caputo MD [address] [place] [address] PCP - General Family Medicine 12/13/19 Aamir Segura DO Physician Hematology/Oncology 07/13/19 Rola Gordon, 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[employer] TA[employer]ER [address] [address] Nurse Practitioner Hematology/Oncology 07/13/19 Applications Engineer Relationship Specialty Start Date End Date David Caputo MD [address] [place] [id number] PCP - General Family Medicine 07/16/23 Team Status: Inactive Member Role Status Dates David Caputo MD Attending Provider Active St art: June 04, 2023 End: June 04, 2023 Team Status: Inactive Member Role Status Dates Rick Zapata DO Attending Provider Active Start: August 05, 2023 End: August 05, 2023 Applications Engineer Relationship Specialty Start Date End Date David Caputo MD [address] [place] [address] PCP - General Family Medicine 07/16/23 Applications Engineer Relationship Specialty Start Date End Date David Caputo MD [address] [place] [address] PCP - General Family Medicine 07/16/23 Applications Engineer Relationship Specialty Start Date End Date David Caputo MD [address] [place] [address] PCP - General Family Medicine 12/13/19 Aamir Segura DO Physician Hematology/Oncology 07/13/19 Rola Gordon APRN.LUMBER TAILER [address] [place] [address] [place] [address] Nurse Practitioner Hematology/Oncology 07/13/19 Applications Engineer Relationship Specialty Start Date End Date David Caputo MD [address] [place] [address] PCP - General Family Medicine 12/13/19 Aamir Segura DO Physician Hematology/Oncology 07/13/19 Rola Gordon, 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L[employer] TAILER [address] [address] Nurse Practitioner Hematology/Oncology 07/13/19 Applications Engineer Relationship Specialty Start Date End Date David Caputo MD [address] [place] [address] PCP - General Family Medicine 12/13/19 Aamir Segura DO Physician Hematology/Oncology 07/13/19 Rola Gordon, 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LUM[employer] TAILER [address] [place] [address] Nurse Practitioner Hematology/Oncology 07/13/19 Applications Engineer Relationship Specialty Start Date End Date David Caputo MD [address] [place] [address] PCP - General Family Medicine 12/13/19 Aamir Segura DO Physician Hematology/Oncology 07/13/19 Rola Gordon, 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LUM[employer] TAILER [address] [place] [address] Nurse Practitioner Hematology/Oncology 07/13/19 Applications Engineer Relationship Specialty Start Date End Date David Caputo MD [address] [place] [address] PCP - General Family Medicine 12/13/19 Aamir Segura DO Physician Hematology/Oncology 07/13/19 Rola Gordon, 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L[employer] TAILER [address] [place] [address] Nurse Practitioner Hematology/Oncology 07/13/19 Team Status: Inactive Member Role Status Dates David Caputo MD Primary Care Provide r, Attending Provider Active Start: August 27, 2023 End: August 27, 2023 Applications Engineer Relationship Specialty Start Date End Date David Caputo MD [address] [place] [address] PCP - General Family Medicine 12/13/19 Aamir Segura DO Physician Hematology/Oncology 07/13/19 Rola Gordon, 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LUM[employer] TAILER [address] [address] Nurse Practitioner Hematology/Oncology 07/13/19 Applications Engineer Relationship Specialty Start Date End Date David Caputo MD PCP - General 06/29/99 Applications Engineer Relationship Specialty Start Date End Date David Caputo MD [address] [place] [address] PCP - General Family Medicine 12/13/19 Aamir Segura DO Physician Hematology/Oncology 07/13/19 Rola Gordon, 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LUM[employer] TAILER [address] [address] Nurse Practitioner Hematology/Oncology 07/13/19 Team Status: Active Member Role Status Dates David Caputo MD Primary Care Provide r, Attending Provider Active Start: December 03, 2023 Team Status: Inactive Member Role Status Dates David Caputo MD Primary Care Provide r, Attending Provider Active Start: December 24, 2023 End: December 24, 2023 Applications Engineer Relationship Specialty Start Date End Date David Caputo MD [address] [place] [address] PCP - General Family Medicine 12/13/19 Aamir Segura DO Physician Hematology/Oncology 07/13/19 Rola Gordon, 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LUMBER TAILER [address] [place] [address] Nurse Practitioner Hematology/Oncology 07/13/19 Applications Engineer Relationship Specialty Start Date End Date David Caputo MD [address] [place] [address] PCP - General Family Medicine 12/13/19 Aamir Segura DO Physician Hematology/Oncology 07/13/19 Rola Gordon, ELVIRA.LUMBER TAILER [address] [place] [address] Nurse Practitioner Hematology/Oncology 07/13/19 Applications Engineer Relationship Specialty Start Date End Date David Caputo MD [address] [place] [address] PCP - General Family Medicine 12/13/19 Aamir Segura DO Physician Hematology/Oncology 07/13/19 Rola Gordon, 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LUM[employer] TAILER [address] [address] Nurse Practitioner Hematology/Oncology 07/13/19 Applications Engineer Relationship Specialty Start Date End Date David Caputo MD [address] [place] [address] PCP - General Family Medicine 12/13/19 Aamir Segura DO Physician Hematology/Oncology 07/13/19 Rola Gordon, 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LUMBER TAILER [address] [facility] [place] [address] Nurse Practitioner Hematology/Oncology 07/13/19 Applications Engineer Relationship Specialty Start Date End Date David Caputo MD [address] [place] [phone] PCP - General Family Medicine 12/13/19 Aamir Segura DO Physician Hematology/Oncology 07/13/19 Rola Gordon, 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LUMBER TAILER [address] [facility] [place] [address] Nurse Practitioner Hematology/Oncology 07/13/19 Applications Engineer Relationship Specialty Start Date End Date David Caputo MD [address] [place] [address] PCP - General Family Medicine 12/13/19 Aamir Segura DO Physician Hematology/Oncology 07/13/19 Rola Gordon, 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LUM[employer] TAILER [address] [address] Nurse Practitioner Hematology/Oncology 07/13/19 Applications Engineer Relationship Specialty Start Date End Date David Caputo MD [address] [place] [address] PCP - General Family Medicine 12/13/19 Aamir Segura DO Physician Hematology/Oncology 07/13/19 Rola Gordon, 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LUMBER TAILER [address] [place] [address] Nurse Practitioner Hematology/Oncology 07/13/19 Applications Engineer Relationship Specialty Start Date End Date David Caputo MD [address] [place] [address] PCP - General Family Medicine 12/13/19 Aamir Segura DO Physician Hematology/Oncology 07/13/19 Rola Gordon, 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LUMBER TAILER [address] [place] [address] Nurse Practitioner Hematology/Oncology 07/13/19 Applications Engineer Relationship Specialty Start Date End Date David Caputo MD [address] [place] [address] PCP - General Family Medicine 12/13/19 Aamir Segura DO Physician Hematology/Oncology 07/13/19 Rola Gordon, 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LUMBER TAILER [address] [place] [address] Nurse Practitioner Hematology/Oncology 07/13/19 Applications Engineer Relationship Specialty Start Date End Date David Caputo MD [address] [place] [address] PCP - General Family Medicine 12/13/19 Aamir Segura DO Physician Hematology/Oncology 07/13/19 Rola Gordon, 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LUMBER TAILER [address] [place] [address] Nurse Practitioner Hematology/Oncology 07/13/19 Applications Engineer Relationship Specialty Start Date End Date David Caputo MD [address] [place] [address] PCP - General Family Medicine 12/13/19 Aamir Segura DO Physician Hematology/Oncology 07/13/19 Rola Gordon, 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LUMBER TAILER [address] [place], [place] [id number] Nurse Practitioner Hematology/Oncology 07/13/19 Team Status: Active [...] May 06, 2024 End: May 06, 2024 Applications Engineer Relationship Specialty Start Date End Date David Caputo MD [address] [place] [address] PCP - General Family Medicine 12/13/19 Aamir Segura DO Physician Hematology/Oncology 07/13/19 Rola Gordon, 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LUMBER TAILER [address] [place] [address] Nurse Practitioner Hematology/Oncology 07/13/19 Applications Engineer Relationship Specialty Start Date End Date David Caputo MD [address] [place] [address] PCP - General Family Medicine 12/13/19 Aamir Segura DO Physician Hematology/Oncology 07/13/19 Rola Gordon, 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LUMBER TAILER [address] [place] [address] Nurse Practitioner Hematology/Oncology 07/13/19 Applications Engineer Relationship Specialty Start Date End Date David Caputo MD [address] [place] [address] PCP - General Family Medicine 12/13/19 Aamir Segura DO Physician Hematology/Oncology 07/13/19 Rola Gordon, 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LUMBER TAILER [address] [place] [address] Nurse Practitioner Hematology/Oncology 07/13/19 Applications Engineer Relationship Specialty Start Date End Date David Caputo MD [address] [place] [id number] PCP - General Family Medicine 12/13/19 Aamir Segura DO Physician Hematology/Oncology 07/13/19 Rola Gordon, 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LUMBER TAILER [address] [place] [address] Nurse Practitioner Hematology/Oncology 07/13/19 Applications Engineer Relationship Specialty Start Date End Date David Caputo MD [address] [place] [address] PCP - General Family Medicine 12/13/19 Rola Gordon, 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LUMBER TAILER [address] [facility] [place] [address] Nurse Practitioner Hematology/Oncology 07/13/19 Zahra May MD [address] [place] [address] Hematology/Oncology 07/15/24 Applications Engineer Relationship Specialty Start Date End Date David Caputo MD [address] [facility] [place] [address] PCP - General Family Medicine 12/13/19 Rola Gordon APRN.LUMBER TAILER [address] [place] [address] Nurse Practitioner Hematology/Oncology 07/13/19 Zahra May MD [address] [place] [address] Hematology/Oncology 07/15/24 Reason for Visit (unrecogniz ed section and [...] iron deficiency anemia type Zahra May MD [address] [place] [address] Zelalem Treat Zhane Mc [address] [place] [address] Referral ID Status Reason Start Date Expiration Date V isits Requested Visits Authorized [id number] Authorized 03/08/2022 06/06/2022 99 99 Reason Onset [...] CT Specialty Diagnoses / [facility] Diagnoses Iron deficiency anemia secondary to inadequate dietary iron intake Cancer of ampulla of Vater (HCC) Anemia due to vitamin B12 deficiency, unspecified B12 deficiency type Procedures CT ABD/PEL W IVCON CT ABD & PELVIS W/CONTRAST Zahra May MD [address] [place] [address] [place] [address] [place] [address] Referral ID Status Reason Start Date Expiration Date V isits Requested Visits Authorized [id number] Closed Auto-Generate d Referral 03/04/2024 01/01/2025 1 1 Reason Comments Radiology NM Specialty Diagnoses / Procedures [facility] IM[facility]ING Diagnoses Cancer of ampulla of Vater (HCC) Anemia due to vitamin B12 deficiency, unspecified B12 deficiency type Severe protein-calorie malnutrition (HCC) Procedures CT ABD/PEL W IVCON CT ABD & PELVIS W/CONTRAST Zahra May MD [address] [place] [address] [place] [address] [place] [address] Referral ID Status Reason Start Date Expiration Date V isits Requested Visits Authorized [id number] Closed Auto-Generate d Referral 06/29/2023 04/14/2024 1 1 Reason Comments Radiology NM Specialty Diagnoses / Procedures [facility]erred To Contact MOLECULAR & FUNCTIONAL IMAGING Diagnoses Cancer of ampulla of Vater (HCC) Procedures NM PET/CT SKULL-THIGH INITIAL PET IMAGING CT ATTENUATION SKULL BASE MID-THIGH Zahra May MD [address] [place] [address] [place] [address] Molecular & Functional Imaging [address] [place] [address] Referral ID Status Reason Start Date Expiration Date V isits Requested Visits Authorized [id number] Closed Auto-Generate d Referral 03/05/2023 03/20/2024 1 1 Specialty Diagnoses / Procedures Referred By [facility] t Referred To Contact CT IMAGING Diagnoses Interstitial pulmonary disease (HCC) Cancer of ampulla of Vater (HCC) Anemia due to vitamin B12 deficiency, unspecified B12 deficiency type Procedures CT CHEST W IVCON DIAGNOSTIC COMPUTED TOMOGRAPHY THORAX W/CONTRAST Zahra May MD [address] [place] [address] [place] [address] [place] [address] Referral ID Status Reason Start Date Expiration Date V isits Requested Visits Authorized [id number] Closed Auto-Generate d Referral 07/04/2022 07/06/2023 1 1 Specialty Diagnoses / Procedures Referred By [facility] Referred To Contact CT IMAGING Diagnoses Iron deficiency anemia, unspecified iron deficiency anemia type 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) Procedures CT CHEST W IVCON DIAGNOSTIC COMPUTED TOMOGRAPHY THORAX W/CONTRAST Zahra May MD [address] [place] [address] [place] [address] [place] [address] Referral ID Status Reason Start Date Expiration Date V isits Requested Visits Authorized [id number] Closed Auto-Generate d Referral 02/04/2022 01/04/2023 1 1 Reason Onset Date Comments Refill Request 03/31/[address] Specialty Diagnoses / Procedures Referred By [facility] Referred To Contact CT IMAGING Diagnoses Cancer of ampulla of Vater (HCC) Iron deficiency anemia secondary to inadequate dietary iron intake Anemia due to vitamin B12 deficiency, unspecified B12 deficiency type Procedures CT ABD/PEL W IVCON CT ABD & PELVIS W/CONTRAST Zahra May MD [address] [place] [address] [place] [address] [place] [address] Referral ID Status Reason Start Date Expiration Date V isits Requested Visits Authorized [id number] Closed Auto-Generate d Referral 06/09/2024 04/09/2025 1 1 Reason Comments Cancer of ampulla of Vater Anemia Reason Comments Radiology NM Specialty Diagnoses / Procedures Referred By [facility] Referred To Contact MOLECULAR & FUNCTIONAL IMAGING Diagnoses 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) Iron deficiency anemia secondary to inadequate dietary iron intake Gastrointestinal hemorrhage associated with duodenitis Procedures NM PET/CT SKULL-THIGH SUBSEQUENT PET IMAGING CT ATTENUATION SKULL BASE MID-THIGH Zahra May MD [address] [place] [address] [place] [address] Molecular & Functional Imaging [address] [place] [address] Referral ID Status Reason Start Date Expiration Date V isits Requested Visits Authorized [id number] Closed Auto-Generate d Referral 06/16/2024 07/16/2025 1 1 Reason Comments Cancer of ampulla of Vater Goals (unrecognized section and content) Goals may [...] BE BASED ON THE PRIMARY CLINICAL RECORDS. [facility] provides no warranty or guarantee of the accuracy or completeness of information in this document.
== END 2024-07-23 11:59 | disposition home or self-care (01) ==
PROVIDERS: PCP Family Medicine
DX: D50.0 Iron deficiency anemia secondary to blood loss (chronic) (principal)

== ENCOUNTER 2024-07-23 12:12 | Emergency (ER) | payer MEDICARE, SELFPAY ==
[2024-07-23] VITALS (49 sets, daily range): BP systolic 53–120; BP diastolic 34–75; PULSE 69–144; O2SAT 77–100; BMI 16.1
[2024-07-23] MEDS: DEXTROSE 50 %-WATER 25 GM/50 ML SYRINGE IV (12:16)
[2024-07-23] MEDS: GLUCAGON 1 MG/ML VIAL IM (12:17)
[2024-07-23 12:20] LABS: Glucometer 52 mg/dL (74-106)
--- OUTSIDE RECORDS SUMMARY | 2024-07-23 12:24 | XMS_ITS | CCD ---
Author Organization [facility] CliniSynm Care Team Providers Care Engineering Model Maker Name Role Phone MICHAEL JOLLEY) Unavailable Unavailable MICHAEL JOLLEY) Unavailable Unavailable YAMILE CERDA Unavailable Unavailable MICHAEL JOLLEY) Unavailable Unavailable MICHAEL JOLLEY) Unavailable Unavailable MICHAEL JOLLYE) Unavailable Unavailable MICHAEL JOLLEY) Unavailable Unavailable HARMONY HINOJOSA Unavailable Unavailable MAU DUFFY Unavailable Unavailable ADRIANE NICHOLS Unavailable Unavailab manolo Unavailable Unavailable Aamir Segura DO Unavailable [phone] Henry CONCRETE POURER.SPEECH TEACHER, Rola Unavailable David Caputo MD Primary Care Provider Nate Hanson Unavailable [phone] Aamir Segura DO Unavailable Henry CONCRETE POURER.SPEECH TEACHER, Rola Unavailable David Caputo MD Primary Care Provider David Caputo Unavailable Aamir Segura DO Unavailable David Caputo MD Primary Care Provider David Caputo MD Primary Care Provider Aamir Segura DO Unavailable Henry CONCRETE POURER.SPEECH TEACHER, Rola Unavailable David Caputo MD Primary Care [...] Care Provider Adamowicz DO, Aamir J Unavailable ALI, GOOD LINDSEY Referring Unavailable NAWRAS, ALI [...] Aamir J Unavailable Zahra May MD Unavailable ABHYANKAR, ZAHRA Referring Unavailable CAPUTO, DAVID [...] sources) Angiotensin Converting Enzyme (Ophelia) Inhibitors; Translations: [OPHEILA Inhibitors] Allergy to drug (finding) 4 [facility] 3 Repository (1 source) patient allergy list reviewed by nurse or physicia Propensity to adverse reactions 8 Comment:Done [employer] Other (1 source) Allergies Reconciled Propensity to adverse reactions 1 Unknown [employer] Other (1 source) Angiotensin-con verting enzyme inhibitor agent Drug Allergy 4 Unknown [facility] Work Phone: Medications Current Medications Medication Drug [...] mg by mout h as needed. amylase 896143 unt / lipase 43954 unt / protease 22400 unt delayed release oral capsule (20 sources) Start: 09-08-2023 take 2 capsules by mouth three times daily at mealtime qemtkm-spvhqrru-fz ylase (ZENPEP) 25,000-79,000- 105,000 unit delayed release capsule Take 2 capsules by mouth three times a day with meals. 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 Creon Oral Capsule Delayed Release Particles [id number] UNIT (2 sources) Start: 2022 take 20449-44276 [IU] by mouth at mealtime Creon Oral Capsule Delayed Release Particles [id number] UNIT 2 capsule Capsule Delayed Release Particles Oral Give 2 capsule by mouth with meals related to GASTRO-ESOPHAGEAL REFLUX DISEASE WITHOUT ESOPHAGITIS (K21.9);[facility] 02/08/2023 12:00:00 Start: 01-23-2023 End: 02-08-2023 take 50032-87588 [IU] by mouth at mealtime Creon Oral Capsule Delayed Release Particles 00289-29101 UNIT 2 capsule Capsule Delayed Release Particles Oral Give 2 capsule by mouth with meals related to GASTRO-ESOPHAGEAL REFLUX DISEASE WITHOUT ESOPHAGITIS (K21.9);[facility] 01/23/2023 17:00:00 02/08/2023 8:05:00 Aborted docusate [...] Start: 01-24-2023 take 1 capsule by mo [facility] once daily FLUOXETINE HCL 20 MG CAPSULE{100 EA} 1 capsule Capsule Oral GIVE 1 CAPSULE BY MOUTH ONCE DAILY (FORMULARY EQUIVALENT FOR TABLET) 01/24/2023 7:00:00 Start: 11-13-2022 take 1 capsule by [facility] every twenty-four hours FLUoxetine HCl 40 MG 1 capsule Orally Once a day for 30 days October, Active Start: 08-13-2022 End: 10-29-2023 take 1 capsule by mouth once daily FLUoxetine HCl 20 MG 1 capsule Orally Once a day for 90 days Jul, Active Start: 08-13-2022 take 1 capsule by [facility] every twenty-four hours FLUoxetine HCl [...] 3:24pm Start: 03-17-2018 take 1 capsule by [facility] twice daily FLUoxetine HCl (PROZAC) [...] Comment on above: Take 1 tablet by [facility] once daily. glipiZIDE 5 mg oral [...] 12:00am March 04, 2019 9:43pm peg 3350-sod sulf,qymq-wil-gol 178.7-7.3-0.5 gram recon soln (1 source) Start: 07-17-2023 End: 07-18-2023 peg 3350-sod sulf,rxpc-ivk-rhp 178.7-7.3-0.5 gram recon soln Take 1 kit [...] 10:30am Start: 06-02-2018 take 1 capsule by [facility] once daily venlafaxine ER (EFFEXOR XR) 75 mg 24 hr capsule TAKE 1 CAPSULE BY MOUTH ONE TIME A DAY 0 06/02/2018 Active Comment on above: TAKE 1 CAPSULE BY [facility] ONE TIME A DAY vitamin b12 1 [...] disease (20 sources) Atherosclerotic heart disease of [place] coronary artery without angina pectoris; Translations: [Ischemic [...] 2 10-29-2023 Chronic Other aftercare (1 source) penitentiary (current) use of anticoagulants; Translations: [PROFESSOR OF THEATER CURRNT USE ANTICOAGULANTS] Onset: 3 Episodic Other aftercare (1 source) Other halfway (current) drug therapy; Translations: [OTH PROFESSOR OF THEATER CURRENT DRUG THERAPY] Onset: 3 Episodic Other [...] Unclassified (1 source) Athscl heart disease of [place] coronary artery w/o ang pctrs / I25.10(ICD-9) [...] Test Name Value Interpretation Reference Range [facility] [place] Nurse Visit (HEMASA) ROCIO JACKSON ([id number]) 1955 M Date Time Provider Department 07/15/24 2:15 PM MELANI NURSE ZELALEM HART CORINE During your visit today, we recorded the following information about you: Livier Seay MA 07/15/2024 2:39 PM Signed Patient Identification confirmed: yes. Injection given and documented on AUG per provider order. Livier Seay MA Referring Provider: JOSE FLANAGAN [[id number]] Allergies As of Date: 07/15/2024 (No Known [...] as designated per enteric contrast guidelines - iufape-uknqawph-uetbzpr (ZENPEP) 25,000-79,000- 105,000 unit delayed release capsule Take 2 capsules by mouth three times a day with meals. - gonrci-cnykylzy-hkddkxy (CREON 24) 24,000-76,000 -120,000 unit delayed release [...] Encounter Status:Closed by LIVIER SEAY on 07/15/24 [facility] CNOVSPon 07-15-2024 CNOVSP Visit (SP) Office (H EMASA) ROCIO JACKSON ([id number]) 1955 M Date Time Provider Department 07/15/24 1:40 PM ZAHRA MAY During your visit today, we recorded the following information about you: Temperature Pulse Respiration Blood pressure 97.3 degrees 85/minute 18/minute 94/63 Zahra May MD 07/16/2024 8:06 AM Signed NAME: Rocio Jackson CLINIC NO.: [id number] DATE OF SERVICE: July 15, 2024 (Iftikhar) [...] as Rx'd Referral to general surgery at [facility] in 4 weeks Labs same day Continue [...] significant histologic abnormality 05/27/2024-05/31/2024 - Admitted at [facility], transferred to [facility] with lower GI bleed, hypotension, tachycardia [...] - C (more content not included)... Normal [facility] CBC W Auto Differential pane l (Bld)on 07-01-2024 Basophils (Bld) [#/Vol] [facility] Basophils/100 WBC (Bld) 0.4 % [facility] Differential cell count method Nom (Bld) Auto [facility] Eosinophils (Bld) [#/Vol] 0.17 10*3/uL [facility] Eosinophils/100 WBC (Bld) 6.1 % [facility] Erythrocyte distribution width (RBC) [Ratio] 16.0 % High 11.5 - 15.0 % [facility] Hematocrit (Bld) [Volume fraction] 33.3 % Low 39.0 - 51.0 % [facility] Hemoglobin (Bld) [Mass/Vol] 11.1 g/dL Low 13.0 - 17.0 g/dL [facility] Immature granulocytes (Bld) [#/Vol] [facility] Immature granulocytes/100 WBC (Bld) 0.4 % [facility] Interpretation and review of laboratory results Abnormal [facility] Lymphocytes (Bld) [#/Vol] 0.69 10*3/uL Low [facility] Lymphocytes/100 WBC (Bld) 24.7 % [facility] MCH (RBC) [Entitic mass] 33.6 pg 26.0 - 34.0 pg [facility] MCHC (RBC) [Mass/Vol] 33.3 g/dL 30.5 - 36.0 g/dL [facility] MCV (RBC) [Entitic vol] 100.9 fL High 80.0 - 100.0 fL [facility] Monocytes (Bld) [#/Vol] 0.26 10*3/uL [facility] Monocytes/100 WBC (Bld) 9.3 % [facility] Neutrophils (Bld) [#/Vol] 1.65 10*3/uL [facility] Neutrophils/100 WBC (Bld) 59.1 % [facility] Nucleated RBC (Bld) [#/Vol] [facility] Nucleated RBC/100 WBC (Bld) [Ratio] 0.0 % /100 WBC [facility] Platelet mean volume (Bld) [Entitic vol] 8.9 fL Low 9.0 - 12.7 fL [facility] Platelets (Bld) [#/Vol] 227 10*3/uL [facility] RBC (Bld) [#/Vol] 3.30 10*6/uL Low 4.20 - 6.00 m/uL [facility] WBC (Bld) [#/Vol] 2.79 10*3/uL Low [facility] Basophils (Bld) [#/Vol] 10*3/uL Normal <0.11 [facility] Comment on above: Order Comment: Speci men Type: BLOOD SPECIMENOrdering Facility: [facility] Address: [address] [place] [address] Performed By: #### 5 7021-8 ####[facility] LABCLIA [id number] [place] [address] Basophils/100 WBC (Bld) 0.4 % Normal [facility] Comment on above: Order Comment: Speci men Type: BLOOD SPECIMENOrdering Facility: [facility] Address: [address] [place] [address] Performed By: #### 5 7021-8 ####[facility] LABCLIA [id number] [place] [address] Differential cell count method Nom (Bld) Auto Normal [facility] Comment on above: Order Comment: Speci men Type: BLOOD SPECIMENOrdering Facility: [facility] Address: [address] [place] [address] Performed By: #### 5 7021-8 ####[facility] LABCLIA [id number] [place] [address] Eosinophils (Bld) [#/Vol] 0.17 10*3/uL Normal <0.46 [facility] Comment on above: Order Comment: Speci men Type: BLOOD SPECIMENOrdering Facility: [facility] Address: [address] [place] [address] Performed By: #### 5 7021-8 ####[facility] LABCLIA [id number] [place] [address] Eosinophils/100 WBC (Bld) 6.1 % Normal [facility] Comment on above: Order Comment: Speci men Type: BLOOD SPECIMENOrdering Facility: [facility] Address: [address] [place] [address] Performed By: #### 5 7021-8 ####[facility] LABCLIA [id number] [place] [address] Erythrocyte distribution width (RBC) [Ratio] 16.0 % High 11.5-15.0 [facility] Comment on above: Order Comment: Speci men Type: BLOOD SPECIMENOrdering Facility: [facility] Address: [address] [place] [address] Performed By: #### 5 7021-8 ####[facility] LABCLIA [id number] [place] [address] Hematocrit (Bld) [Volume fraction] 33.3 % Low 39.0-51.0 [facility] Comment on above: Order Comment: Speci men Type: BLOOD SPECIMENOrdering Facility: [facility] Address: [address] [place] [address] Performed By: #### 5 7021-8 ####[facility] LABCLIA [id number] [place] [address] Hemoglobin (Bld) [Mass/Vol] 11.1 g/dL Low 13.0-17.0 [facility] Comment on above: Order Comment: Speci men Type: BLOOD SPECIMENOrdering Facility: [facility] Address: [address] [place] [address] Performed By: #### 5 7021-8 ####[facility] LABCLIA [id number] [place] [address] Immature granulocytes (Bld) [#/Vol] 10*3/uL Normal <0.10 [facility] Comment on above: Order Comment: Speci men Type: BLOOD SPECIMENOrdering Facility: [facility] Address: [address] [place] [address] Performed By: #### 5 7021-8 ####[facility] LABCLIA [id number] [place] [address] Immature granulocytes/100 WBC (Bld) 0.4 % Normal [facility] Comment on above: Order Comment: Speci men Type: BLOOD SPECIMENOrdering Facility: [facility] Address: [address] [place] [address] Performed By: #### 5 7021-8 ####[facility] LABCLIA [id number] [place] [address] Lymphocytes (Bld) [#/Vol] 0.69 10*3/uL Low 1.00-4.00 [facility] Comment on above: Order Comment: Speci men Type: BLOOD SPECIMENOrdering Facility: [facility] Address: [address] [place] [address] Performed By: #### 5 7021-8 ####[facility] LABCLIA [id number] [place] [address] Lymphocytes/100 WBC (Bld) 24.7 % Normal [facility] Comment on above: Order Comment: Speci men Type: BLOOD SPECIMENOrdering Facility: [facility] Address: [address] [place] [address] Performed By: #### 5 7021-8 ####[facility] LABCLIA [id number] [place] [address] MCH (RBC) [Entitic mass] 33.6 pg Normal 26.0-34.0 [facility] Comment on above: Order Comment: Speci men Type: BLOOD SPECIMENOrdering Facility: [facility] Address: [address] [place] [address] Performed By: #### 5 7021-8 ####[facility] LABCLIA [id number] [place] [address] MCHC (RBC) [Mass/Vol] 33.3 g/dL Normal 30.5-36.0 [facility] Comment on above: Order Comment: Speci men Type: BLOOD SPECIMENOrdering Facility: [facility] Address: [address] [place] [address] Performed By: #### 5 7021-8 ####[facility] LABCLIA [id number] [place] [address] MCV (RBC) [Entitic vol] 100.9 fL High 80.0-100.0 [facility] Comment on above: Order Comment: Speci men Type: BLOOD SPECIMENOrdering Facility: [facility] Address: [address] [place] [address] Performed By: #### 5 7021-8 ####[facility] LABCLIA [id number] [place] [address] Monocytes (Bld) [#/Vol] 0.26 10*3/uL Normal <0.87 [facility] Comment on above: Order Comment: Speci men Type: BLOOD SPECIMENOrdering Facility: [facility] Address: [address] [place] [address] Performed By: #### 5 7021-8 ####[facility] LABCLIA [id number] [place] [address] Monocytes/100 WBC (Bld) 9.3 % Normal [facility] Comment on above: Order Comment: Speci men Type: BLOOD SPECIMENOrdering Facility: [facility] Address: [address] [place] [address] Performed By: #### 5 7021-8 ####[facility] LABCLIA [id number] [place] [address] Neutrophils (Bld) [#/Vol] 1.65 10*3/uL Normal 1.45-7.50 [facility] Comment on above: Order Comment: Speci men Type: BLOOD SPECIMENOrdering Facility: [facility] Address: [address] [place] [address] Performed By: #### 5 7021-8 ####[facility] LABCLIA [id number] [place] [address] Neutrophils/100 WBC (Bld) 59.1 % Normal [facility] Comment on above: Order Comment: Speci men Type: BLOOD SPECIMENOrdering Facility: [facility] Address: [address] [place] [address] Performed By: #### 5 7021-8 ####[facility] LABCLIA [id number] [place] [address] Nucleated RBC (Bld) [#/Vol] 10*3/uL Normal <0.01 [facility] Comment on above: Order Comment: Speci men Type: BLOOD SPECIMENOrdering Facility: [facility] Address: [address] [place] [address] Performed By: #### 5 7021-8 ####[facility] LABCLIA [id number] [place] [address] Nucleated RBC/100 WBC (Bld) [Ratio] 0.0 /100 WBC Normal [facility] Comment on above: Order Comment: Speci men Type: BLOOD SPECIMENOrdering Facility: [facility] Address: [address] [place] [address] Performed By: #### 5 7021-8 ####[facility] LABCLIA [id number] [place] [address] Platelet mean volume (Bld) [Entitic vol] 8.9 fL Low 9.0-12.7 [facility] Comment on above: Order Comment: Speci men Type: BLOOD SPECIMENOrdering Facility: [facility] Address: [address] [place] [address] Performed By: #### 5 7021-8 ####[facility] LABIA [id number] [place] [address] Platelets (Bld) [#/Vol] 227 10*3/uL Normal 150-400 [facility] Comment on above: Order Comment: Speci men Type: BLOOD SPECIMENOrdering Facility: [facility] Address: [address] [place] [address] Performed By: #### 5 7021-8 ####[facility] LABCLIA [id number] [place] [address] RBC (Bld) [#/Vol] 3.30 10*6/uL Low 4.20-6.00 [facility] Comment on above: Order Comment: Speci men Type: BLOOD SPECIMENOrdering Facility: [facility] Address: [address] [place] [address] Performed By: #### 5 7021-8 ####[facility] LABCLIA [id number] [place] [address] WBC (Bld) [#/Vol] 2.79 10*3/uL Low 3.70-11.00 [facility] Comment on above: Order Comment: Speci men Type: BLOOD SPECIMENOrdering Facility: [facility] Address: [address] [place] [address] Performed By: #### 5 7021-8 ####[facility] LABCLIA [id number] [place] [address] Comprehensive metabolic 2000 panelOrdered By: Olga Cornejo on 07-01-2024 Albumin [Mass/Vol] 2.7 g/dL Low 3.9 - 4.9 g/dL [facility] ALP [Catalytic activity/Vol] 104 U/L 38 - 113 U/L [facility] ALT [Catalytic activity/Vol] 10 U/L 10 - 54 U/L [facility] Anion gap [Moles/Vol] 7 mmol/L Low 8 - 15 mmol/L [facility] AST [Catalytic activity/Vol] 11 U/L Low 14 - 40 U/L [facility] Bilirubin [Mass/Vol] 0.3 mg/dL 0.2 - 1 .3 mg/dL [facility] Calcium [Mass/Vol] 8.4 mg/dL Low 8.5 - 10. 2 mg/dL [facility] Chloride [Moles/Vol] 103 mmol/L 98 - 10 7 mmol/L [facility] CO2 [Moles/Vol] 27 mmol/L 22 - 30 mmol/L [facility] Creatinine [Mass/Vol] 0.60 mg/dL Low 0.73 - 1.22 mg/dL [facility] GFR/1.73 sq M.predicted among non-blacks MDRD (S/P/Bld) [Vol rate/Area] 106 mL/min/{1.73_m2} - PINF [facility] Comment on above: Estimated Glomerular [...] [Mass/Vol] 87 mg/dL 74 - 99 mg/dL [facility] Comment on above: The [place] Diabete s Association (ADA) provides guidance for [...] Standards of Medical Care in Diabetes 2016, [place] [employer]. Diabetes Care. 2016.39(Suppl 1). Interpretation and review of laboratory results Abnormal [facility] Potassium [Moles/Vol] 4.4 mmol/L 3.7 - 5.1 mmol/L [facility] Protein [Mass/Vol] 5.1 g/dL Low 6.3 - 8.0 g/dL [facility] Sodium [Moles/Vol] 137 mmol/L 136 - 144 mmol/L [facility] Urea nitrogen [Mass/Vol] 31 mg/dL High 9 - 24 mg/dL [facility] Comprehensive metabolic 2000 panelon 07-01-2024 Albumin [Mass/Vol] 2.7 g/dL Low 3.9-4.9 [facility] Comment on above: Order Comment: Speci men Type: BLOOD SPECIMENOrdering Facility: [facility] Address: [address] [place] [address] Performed By: #### 2 4323-8 ####[facility] LABCLIA [id number] [place] [address] ALP [Catalytic activity/Vol] 104 U/L Normal 38-113 [facility] Comment on above: Order Comment: Speci men Type: BLOOD SPECIMENOrdering Facility: [facility] Address: [address] [place] [address] Performed By: #### 2 4323-8 ####[facility] LABCLIA [id number] [place] [address] ALT [Catalytic activity/Vol] 10 U/L Normal 10-54 [facility] Comment on above: Order Comment: Speci men Type: BLOOD SPECIMENOrdering Facility: [facility] Address: [address] [place] [address] Performed By: #### 2 4323-8 ####[facility] LABCLIA [id number] [place] [address] Anion gap [Moles/Vol] 7 mmol/L Low 8-15 [facility] Comment on above: Order Comment: Speci men Type: BLOOD SPECIMENOrdering Facility: [facility] Address: [address] [place] [address] Performed By: #### 2 4323-8 ####[facility] LABCLIA [id number] [place] [address] AST [Catalytic activity/Vol] 11 U/L Low 14-40 [facility] Comment on above: Order Comment: Speci men Type: BLOOD SPECIMENOrdering Facility: [facility] Address: [address] [place] [address] Performed By: #### 2 4323-8 ####[facility] LABCLIA [id number] [place] [address] Bilirubin [Mass/Vol] 0.3 mg/dL Normal 0.2-1.3 [facility] Comment on above: Order Comment: Speci men Type: BLOOD SPECIMENOrdering Facility: [facility] Address: [address] [place], [place] [address] Performed By: #### 2 4323-8 ####[facility] LABCLIA [id number] [place] [address] Calcium [Mass/Vol] 8.4 mg/dL Low 8.5-10.2 [facility] Comment on above: Order Comment: Speci men Type: BLOOD SPECIMENOrdering Facility: [facility] Address: [address] [place] [address] Performed By: #### 2 4323-8 ####[facility] LABCLIA [id number] [place] [address] Chloride [Moles/Vol] 103 mmol/L Normal 98-107 [facility] Comment on above: Order Comment: Speci men Type: BLOOD SPECIMENOrdering Facility: [facility] Address: [address] [place] [address] Performed By: #### 2 4323-8 ####[facility] LABCLIA [id number] [place] [address] CO2 [Moles/Vol] 27 mmol/L Normal 22-30 [facility] Comment on above: Order Comment: Speci men Type: BLOOD SPECIMENOrdering Facility: [facility] Address: [address] [place] [address] Performed By: #### 2 4323-8 ####[facility] LABCLIA [id number] [place] [address] Creatinine [Mass/Vol] 0.60 mg/dL Low 0.73-1.22 [facility] Comment on above: Order Comment: Speci men Type: BLOOD SPECIMENOrdering Facility: [facility] Address: [address] [place], [place] [address] Performed By: #### 2 4323-8 ####[facility] LABCLIA [id number] [place] [address] Creatinine and Glomerular filtration rate.predicted panel (S/P/Bld) 106 mL/min/1.73m??? Normal >=60 [facility] Comment on above: Order Comment: Frank real Type: BLOOD SPECIMENOrdering Facility: [facility] Address: [address] [place] [address] Result Comment: Megan mated Glomerular Filtration Rate [...] actual GFR. Performed By: #### 2 4323-8 ####[facility] LABCLIA [id number] [place] [address] Glucose [Mass/Vol] 87 mg/dL Normal 74-99 [facility] Comment on above: Order Comment: Frank real Type: BLOOD SPECIMENOrdering Facility: [facility] Address: [address] [place] [address] Result Comment: The [place] [employer] Association (ADA) provides guidance for cutoff [...] Standards of Medical Care in Diabetes 2016, [place] [employer]. Diabetes Care. 2016.39(Suppl 1). Performed By: #### 2 4323-8 ####[facility] LABCLIA [id number] [place] [address] Potassium [Moles/Vol] 4.4 mmol/L Normal 3.7-5.1 [facility] Comment on above: Order Comment: Speci men Type: BLOOD SPECIMENOrdering Facility: [facility] Address: [address] [place], [place] [address] Performed By: #### 2 4323-8 ####[facility] LABCLIA [id number] [place] [address] Protein [Mass/Vol] 5.1 g/dL Low 6.3-8.0 [facility] Comment on above: Order Comment: Speci men Type: BLOOD SPECIMENOrdering Facility: [facility] Address: [address] [place] [address] Performed By: #### 2 4323-8 ####[facility] LABCLIA [id number] [place] [address] Sodium [Moles/Vol] 137 mmol/L Normal 136-144 [facility] Comment on above: Order Comment: Speci men Type: BLOOD SPECIMENOrdering Facility: [facility] Address: [address] [place] [address] Performed By: #### 2 4323-8 ####[facility] LABCLIA [id number] [place] [address] Urea nitrogen [Mass/Vol] 31 mg/dL High 9-24 [facility] Comment on above: Order Comment: Speci men Type: BLOOD SPECIMENOrdering Facility: [facility] Address: [address] [place], [place] [address] Performed By: #### 2 4323-8 ####[facility] LABCLIA [id number] [place] [address] Ferritin SerPl-ncon 2024 Ferritin [Mass/Vol] 633.0 ng/mL High 30.3-565.7 [facility] Comment on above: Order Comment: Speci men Type: BLOOD SPECIMENOrdering Facility: [facility] Address: [address] [place] [address] Performed By: #### 2 276-4, 2284-8, 26521-6, 2131-9 ####[facility] LABCLIA [id number] [place] [id number] [place] Folate SerPl-mCncon 07-01-19 25 Folate [Mass/Vol] ng/mL Normal >4.7 [facility] Comment on above: Order Comment: Speci men Type: BLOOD SPECIMENOrdering Facility: [facility] Address: [address] [place] [address] Result Comment: A re sult of > 20 ng/mL is not necessarily indicative of a pathologic or treatable condition: it reflects a limitation of the test methodology. Assay reference range: 4.8 to 24.2 ng/mL. Suitable for detection of folate deficiency. Reference: Folate III (Folate III) [package insert V 1.0 Malay]. [employer], [place], [place]: April 2015. Performed By: #### 2 276-4, 2284-8, 41959-6, 2131-9 ####[facility] LABCLIA [id number] [place] [id number] [place] GLUCOSE, BLOOD (POC)on 07-01 Glucose [Mass/Vol] 85 mg/dL 74 - 99 mg/dL [facility] Comment on above: Location:[facility], [address] [place] [address] Dr. [place], [place], [facility] The Accu-Chek Inform II glucose meter [...] blood gas instrument) in the above situations. [facility] Iron and Iron binding capaci ty panelon 07-01-2024 Iron [Mass/Vol] 36 ug/dL Low 41-186 [facility] Comment on above: Order Comment: Speci men Type: BLOOD SPECIMENOrdering Facility: [facility] Address: [address] [place] [address] Performed By: #### 2 276-4, 2284-8, 87823-2, 9 ####[facility] LABCLIA [id number] [address] [address] [place] Iron binding capacity [Mass/Vol] 145 ug/dL Low 232-386 [facility] Comment on above: Order Comment: Speci men Type: BLOOD SPECIMENOrdering Facility: [facility] Address: [address] [place] [address] Performed By: #### 2 276-4, 2284-8, 86429-8, 9 ####[facility] LABCLIA [id number] [address] [address] [place] Iron/TIBC [Molar ratio] 24.8 % Normal 15.0-57.0 [facility] Comment on above: Order Comment: Speci men Type: BLOOD SPECIMENOrdering Facility: [facility] Address: [address] [place] [address] Performed By: #### 2 276-4, 2284-8, 92634-3, 9 ####[facility] LABCLIA [id number] [address] [address] [place] NM PET/CT SKULL-THIGH [...] * Uptake Time: 46 minutes * Radiopharmaceutical: E14-Rdrqqhbiqpjdsuixrb (FDG) COMPARISON: FDG PET/CT 03/11/2023 CORRELATION: CT [...] any questions regarding this interpretation, please call [phone]. If you are unable to reach us at the number above, please feel free to contact [facility] eRadiology at [phone]. [id number] Normal [facility] Vit B12 SerPl-mCncon 025 Cobalamin (Vitamin B12) [Mass/Vol] 845 pg/mL Normal 232-1245 [facility] Comment on above: Order Comment: Speci men Type: BLOOD SPECIMENOrdering Facility: [facility] Address: [address] [place] [address] Performed By: #### 2 276-4, 2284-8, 77621-1, 2132-9 ####[facility] LABCLIA [id number] [place] [address] [place] CNOVSPon 06-16-2024 CNOVSP Visit (SP) Office (Johnathan MCKENZIE) ROCIO JACKSON ([id number]) 1955 M Date Time Provider Department 06/16/24 3:40 PM ZAHRA MAY During your visit today, we recorded the following information about you: Temperature Pulse Respiration Blood pressure 97.2 degrees 49/minute 16/minute 78/48 Height 1.708 m Lillian Tucker MA 06/16/2024 5:36 PM Signed Patient was recently hospitalized at [facility]. MELANI Bradley Vivek, MD 06/16/2024 5:36 PM Signed NAME: Rocio Jackson CLINIC NO.: [id number] DATE OF SERVICE: June 16, 2024 (Iftikhar) [...] of recurrence. PLAN: Need EGD/Colonoscopy results from [facility] from April 2024 Need records of hospitalization [...] abdomen or pelvis. 05/27/2024-05/31/2024 - Admitted at [facility], transferred to [facility] with lower GI bleed, hypotension, tachycardia [...] most likel (more content not included)... Normal [facility] FERRITINon 06-10-2024 Ferritin [Mass/Vol] 477.0 ng/mL 30.3 - 565.7 ng/mL [facility] FOLATE, SERUMon 06-10-2024 Folate [Mass/Vol] 14.1 ng/mL 4.7 - PINF ng/mL [facility] Iron and Iron binding capaci ty panelon 06-10-2024 Interpretation and review of laboratory results Abnormal [facility] Iron [Mass/Vol] 19 ug/dL Low 41 - 186 ug/dL [facility] Iron binding capacity [Mass/Vol] 141 ug/dL Low 232 - 386 ug/dL [facility] Iron/TIBC [Molar ratio] 13.5 % Low 15.0 - 57.0 % [facility] No Panel Informationon 06-10 Interpretation and review of laboratory results Normal [facility] VITAMIN B12on 06-10-2024 Cobalamin (Vitamin B12) [Mass/Vol] 657 pg/mL 232 - 1245 pg/mL [facility] CT ABD/PEL W IVCONon 024 CT ABD/PEL W IVCON * * *Final Report* * * DATE OF EXAM: Jun 09 2024 2:47PM [facility] 0530 - CT [...] was performed concurrently and is dictated separately. Human Resources Support Specialist (topogram) images: Unremarkable. IMPRESSION: Persistent irregular wall [...] any questions regarding this interpretation, please call [phone]. If you are unable to reach us at the number above, please feel free to contact [facility] eRadiology at [phone]. [id number] Normal [facility] CT CHEST W IVCONon CT CHEST W IVCON * * *Final Report* * * DATE OF EXAM: Jun 09 2024 2:47PM [facility] 0539 - CT [...] was performed concurrently and is dictated separately. Human Resources Support Specialist (topogram) images: Unremarkable. IMPRESSION: Development of multifocal [...] any questions regarding this interpretation, please call [phone]. If you are unable to reach us at the number above, please feel free to contact [facility] at [phone]. [id number] Normal [facility] Ferritin SerPl-[facility] 2023 Ferritin [Mass/Vol] 477.0 ng/mL Normal 30.3-565.7 [facility] Comment on above: Order Comment: Speci men Type: BLOOD SPECIMENOrdering Facility: [facility] Address: [address] [place] [address] Performed By: #### 5 0190-8, 2132-02, 2275-09, 2284-01 ####[facility] LABCLIA [id number] [place] [address] [place] Folate [facility] 06-09-20 Folate [Mass/Vol] 14.1 ng/mL Normal >4.7 [facility] Comment on above: Order Comment: Speci men Type: BLOOD SPECIMENOrdering Facility: [facility] Address: [address] [place] [address] Performed By: #### 5 0190-8, 2132-02, 2275-09, 2284-01 ####[facility] LABCLIA [id number] [place] [address] [place] Iron and Iron binding capaci panelon 06-09-2024 Iron [Mass/Vol] 19 ug/dL Low 41-186 [facility] Comment on above: Order Comment: Speci men Type: BLOOD SPECIMENOrdering Facility: [facility] Address: [address] [place] [address] Performed By: #### 5 0190-8, 9, 2275-09, 2284-01 ####[facility] LABCLIA [id number] [place] [address] [place] Iron binding capacity [Mass/Vol] 141 ug/dL Low 232-386 [facility] Comment on above: Order Comment: Speci men Type: BLOOD SPECIMENOrdering Facility: [facility] Address: [address] [place], [place] [address] Performed By: #### 5 0190-8, 9, 4, 2284-01 ####[facility] LABCLIA [id number] [place] [id number] [place] Iron/TIBC [Molar ratio] 13.5 % Low 15.0-57.0 [facility] Comment on above: Order Comment: Speci men Type: BLOOD SPECIMENOrdering Facility: [facility] Address: [address] [place] [address] Performed By: #### 5 0190-8, 9, 4, 2284-01 ####[facility] LABCLIA [id number] [place] [id number] [place] Vit B12 [facility] 024 Cobalamin (Vitamin B12) [Mass/Vol] 657 pg/mL Normal 232-1245 [facility] Comment on above: Order Comment: Speci men Type: BLOOD SPECIMENOrdering Facility: [facility] Address: [address] [place] [address] Performed By: #### 5 0190-8, 9, 2275-09, 2284-01 ####[facility] LABCLIA [id number] [place] [id number] [place] 30on 05-30-2024 30 [...] include outpatient follow up with GI. Normal [facility] 30 Daily Case Managemen t Update Multidisciplinary rounds have been completed. Barriers to Discharge: Transferred from [place] with a 3-day history of melena and maroon-colored stool. S/p urgent EGD which showed stomach congestion in the region of fundus and post surgical changes. Plan for outpatient VCE. Hgb stable at 9.6. PT/OT recommend SNF, SW consulted. 1555: Patient is declining SNF and would like to discharge home with [facility]. Diet: Dietary Orders (From admission, onward) Start [...] OT Six Click Score: 13 PT Recommendations: [facility] facility placement OT Recommendations: [facility] facility placement New Consults: Ancillary Consults (From admission, onward) Start Ordered 05/30/24 1513 Inpatient consult to Social Work Once Provider: (Not yet assigned) Question Answer Comment Select all services needed for the patient [facility] Facility (30 day convalescent stay) Please indicate your approval for this care by adding your name here: PURA PARKER 05/30/24 1512 Therapy Orders (From admission, onward) Start Ordered 05/30/24 0851 PT eval and treat Until therapy completed Question: Reason for PT? Answer: weakness 05/30/24 0850 05/30/24 0851 OT eval and treat Until therapy completed Question: Reason for OT? Answer: weakness 05/30/24 0850 Normal [facility] CBCon 05-30-2024 Erythrocyte distribution width (RBC) [Ratio] 17.6 % High 11.5-15.0 [facility] Comment on above: Performed By: #### L [id number] ####[facility] (BEAKER)[address] [place] [address] ERYTHROCYTE MEAN CORPUSCULAR HEMOGLOBIN CONCENTRATION (G/DL) BY AUTOMATED 32.0 g/dL Normal 32.0-35.0 [facility] Comment on above: Performed By: #### L [id number] ####[facility] ([facility])[address] [place] [address] Hematocrit (Bld) [Volume fraction] 30.0 % Low 39.0-55.0 [facility] Comment on above: Performed By: #### L [id number] ####[facility] ([facility])[address] [place] [address] Hemoglobin (Bld) [Mass/Vol] 9.6 g/dL Low 13.0-17.0 [facility] Comment on above: Performed By: #### L [id number] ####[facility] ([facility])[address] [place] [address] MCH (RBC) [Entitic mass] 32.5 pg Normal 27.0-33.0 [facility] Comment on above: Performed By: #### L [id number] ####[facility] ([facility])[address] [place] [address] MCV (RBC) [Entitic vol] 101.7 fL High 82.0-98.0 [facility] Comment on above: Performed By: #### L [id number] ####[facility] ([facility])[address] [place] [address] PLATELETS (10*3/UL) IN BLOOD AUTOMATED COUNT 245 10*3/uL Normal 150-400 [facility] Comment on above: Performed By: #### L [id number] ####[facility] ([facility])[address] [place] [address] RBC (Bld) [#/Vol] 2.95 10*6/uL Low 4.20-5.70 [facility] Comment on above: Performed By: #### L [id number] ####[facility] ([facility])[address] [place] [address] WBC (Bld) [#/Vol] 2.64 10*3/uL Low 4.00-10.60 [facility] Comment on above: Performed By: #### L [id number] ####[facility] ([facility])[address] [place] [place] [address] COMPREHENSIVE METABOLIC PANE Huseyin 05-30-2024 Albumin [Mass/Vol] 2.1 g/dL Low 3.5-5.7 [facility] Comment on above: Performed By: #### L [id number] #### [facility] ([facility]) [address] [place] [address] ALP [Catalytic activity/Vol] 82 U/L Normal 34-104 [facility] Comment on above: Performed By: #### L [id number] #### [facility] ([facility]) [address] [place] [address] ALT [Catalytic activity/Vol] 9 U/L Normal 7-52 [facility] Comment on above: Performed By: #### L [id number] #### [facility] ([facility]) [address] [place] [address] Anion gap [Moles/Vol] 6 mmol/L Low 7-20 [facility] Comment on above: Performed By: #### L [id number] #### [facility] ([facility]) [address] [place] [address] AST [Catalytic activity/Vol] 12 U/L Low 13-39 [facility] Comment on above: Performed By: #### L [id number] #### [facility] ([facility]) [address] [place] [address] Bilirubin [Mass/Vol] 0.2 mg/dL Low 0.3-1.[address] [facility] Comment on above: Performed By: #### L [id number] #### [facility] ([facility]) [address] [place] [address] Calcium [Mass/Vol] 7.2 mg/dL Low 8.6-10.3 [facility] Comment on above: Performed By: #### L [id number] #### [facility] ([facility]) [address] [place] [address] Chloride [Moles/Vol] 110 mmol/L High 98-[address] [facility] Comment on above: Performed By: #### L [id number] #### [facility] ([facility]) [address] [place] [address] CO2 [Moles/Vol] 23 mmol/L Normal 21-31 [facility] Comment on above: Performed By: #### L [id number] #### [facility] ([facility]) [address] [place] [address] Creatinine [Mass/Vol] 0.45 mg/dL Low 0.70-1.30 [facility] Comment on above: Performed By: #### L [id number] #### [facility] ([facility]) [address] [place] [address] GLOMERULAR FILTRATION RATE ML/MIN/1.73 SQ M.PREDICTED 116.1 mL/min/1.73m*2 Normal >60.0 [facility] Comment on above: Result Comment: The [facility]???s estimated glomerular filtration rate (eGFR) will no [...] individuals. Performed By: #### L [id number] #### [facility] ([facility]) [address] [place] [address] Glucose [Mass/Vol] 107 mg/dL High 70-100 [facility] Comment on above: Performed By: #### L [id number] #### [facility] ([facility]) [address] [place] [address] Potassium [Moles/Vol] 3.4 mmol/L Low 3.5-5.1 [facility] Comment on above: Performed By: #### L [id number] #### [facility] ([facility]) [address] [place] [address] Protein [Mass/Vol] 4.2 g/dL Low 6.0-8.3 [facility] Comment on above: Performed By: #### L [id number] #### [facility] ([facility]) [address] [place] [address] Sodium [Moles/Vol] 136 mmol/L Normal 136-145 [facility] Comment on above: Performed By: #### L [id number] #### [facility] ([facility]) [address] [place] [address] Urea nitrogen [Mass/Vol] 10 mg/dL Normal 7-25 [facility] Comment on above: Performed By: #### L [id number] #### [facility] ([facility]) [address] [place] [address] UREA NITROGEN/CREATININE (MASS RATIO) IN SER/PLAS 22.2 Normal [facility] Comment on above: Performed By: #### L [id number] #### [facility] ([facility]) [address] [place] [address] HEMOGLOBIN AND HEMATOCRIT, B LOODon 05-30-2024 Hematocrit (Bld) [Volume fraction] 28.7 % Low 39.0-55.0 [facility] Comment on above: Performed By: #### L [id number] #### [facility] ([facility]) [address] [place] [address] Hemoglobin (Bld) [Mass/Vol] 9.7 g/dL Low 13.0-17.0 [facility] Comment on above: Performed By: #### L [id number] #### [facility] ([facility]) [address] [place] [address] Hematocrit (Bld) [Volume fraction] 31.5 % Low 39.0-55.0 [facility] Comment on above: Performed By: #### L [id number] ####[facility] (BEAKER)[address] [place] [address] Hemoglobin (Bld) [Mass/Vol] 10.5 g/dL Low 13.0-17.0 [facility] Comment on above: Performed By: #### L [id number] ####[facility] (BE[facility]ER)[address] [place] [address] Hematocrit (Bld) [Volume fraction] 28.4 % Low 39.0-55.0 [facility] Comment on above: Performed By: #### L [id number] ####[facility] (BE[facility]ER)[address] [place] [address] Hemoglobin (Bld) [Mass/Vol] 9.6 g/dL Low 13.0-17.0 [facility] Comment on above: Performed By: #### L [id number] ####[facility] ([facility])[address] [place] [address] AMMONIAon 05-29-2024 AMMONIA (UMOL/L) IN PLASMA 27 umol/L Normal 18-72 [facility] Comment on above: Performed By: #### L [id number] ####[facility] ([facility])[address] [place] [address] CBC WITH AUTO DIFFERENTIALon 05-29-2024 Erythrocyte distribution width (RBC) [Ratio] 18.6 % High 11.5-15.0 [facility] Comment on above: Performed By: #### L [id number] #### [facility] ([facility]) [address] [place] [address] ERYTHROCYTE MEAN CORPUSCULAR HEMOGLOBIN CONCENTRATION (G/DL) BY AUTOMATED 32.4 g/dL Normal 32.0-35.0 [facility] Comment on above: Performed By: #### L [id number] #### [facility] ([facility]) [address] [place] [address] Hematocrit (Bld) [Volume fraction] 31.8 % Low 39.0-55.0 [facility] Comment on above: Performed By: #### L [id number] #### [facility] ([facility]) [address] [place] [address] Hemoglobin (Bld) [Mass/Vol] 10.3 g/dL Low 13.0-17.0 [facility] Comment on above: Performed By: #### L [id number] #### [facility] ([facility]) [address] [place] [address] MCH (RBC) [Entitic mass] 32.2 pg Normal 27.0-33.0 [facility] Comment on above: Performed By: #### L [id number] #### [facility] ([facility]) [address] [place] [address] MCV (RBC) [Entitic vol] 99.4 fL High 82.0-98.0 [facility] Comment on above: Performed By: #### L [id number] #### [facility] ([facility]) [address] [place] [address] NRBC (PER 100 WBCS) BY AUTOMATED COUNT 0.0 % Normal 0 [facility] Comment on above: Performed By: #### L [id number] #### [facility] ([facility]) [address] [place] [address] PLATELETS (10*3/UL) IN BLOOD AUTOMATED COUNT 217 10*3/uL Normal 150-400 [facility] Comment on above: Performed By: #### L [id number] #### [facility] ([facility]) [address] [place] [address] RBC (Bld) [#/Vol] 3.20 10*6/uL Low 4.20-5.70 [facility] Comment on above: Performed By: #### L [id number] #### [facility] ([facility]) [address] [place] [address] WBC (Bld) [#/Vol] 2.09 10*3/uL Low 4.00-10.60 [facility] Comment on above: Performed By: #### L [id number] #### [facility] (BEAK[facility]) [address] [place] [address] COMPREHENSIVE METABOLIC PANE Huseyin 05-29-2024 Albumin [Mass/Vol] 2.4 g/dL Low 3.5-5.7 [facility] Comment on above: Performed By: #### L AB17 ####[facility] (BEAKER)[address] [place] [address] ALP [Catalytic activity/Vol] 97 U/L Normal 34-104 [facility] Comment on above: Performed By: #### L AB17 ####[facility] (BEAKER)[address] [place] [address] ALT [Catalytic activity/Vol] 10 U/L Normal 7-52 [facility] Comment on above: Performed By: #### L AB17 ####[facility] (BEAKER)[address] [place] [address] Anion gap [Moles/Vol] 11 mmol/L Normal 7-20 [facility] Comment on above: Performed By: #### L [id number] ####[facility] (BEAKER)[address] [place] [address] AST [Catalytic activity/Vol] 20 U/L Normal 13-39 [facility] Comment on above: Performed By: #### L [id number] ####[facility] (BEAKER)[address] [place] [address] Bilirubin [Mass/Vol] 0.3 mg/dL Normal 0.3-1.[address] [facility] Comment on above: Performed By: #### L [id number] ####[facility] (BEAKER)[address] [place] [address] Calcium [Mass/Vol] 7.6 mg/dL Low 8.6-10.3 [facility] Comment on above: Performed By: #### L [id number] ####[facility] (BEAKER)[address] [place] [address] Chloride [Moles/Vol] 108 mmol/L High 98-[address] [facility] Comment on above: Performed By: #### L [id number] ####[facility] ([facility])[address] [place] [place] [address] CO2 [Moles/Vol] 22 mmol/L Normal 21-31 [facility] Comment on above: Performed By: #### L [id number] ####[facility] ([facility])[address] [place], [place] [address] Creatinine [Mass/Vol] 0.44 mg/dL Low 0.70-1.30 [facility] Comment on above: Performed By: #### L [id number] ####[facility] ([facility])[address] [place], [place] [address] GLOMERULAR FILTRATION RATE ML/MIN/1.73 SQ M.PREDICTED 116.9 mL/min/1.73m*2 Normal >60.0 [facility] Comment on above: Result Comment: [facility]???s estimated glomerular filtration rate (eGFR) will no [...] of individuals. Performed By: #### L [id number] ####[facility] ([facility])[address] [place], [place] [address] Glucose [Mass/Vol] 98 mg/dL Normal 70-100 [facility] Comment on above: Performed By: #### L [id number] ####[facility] ([facility])[address] [place] [address] Potassium [Moles/Vol] 3.7 mmol/L Normal 3.5-5.1 [facility] Comment on above: Performed By: #### L [id number] ####[facility] ([facility])[address] [place] [address] Protein [Mass/Vol] 4.7 g/dL Low 6.0-8.3 [facility] Comment on above: Performed By: #### L [id number] ####[facility] ([facility])[address] [place] [address] Sodium [Moles/Vol] 137 mmol/L Normal 136-145 [facility] Comment on above: Performed By: #### L [id number] ####[facility] ([facility])[address] [place] [address] Urea nitrogen [Mass/Vol] 18 mg/dL Normal 7-25 [facility] Comment on above: Performed By: #### L [id number] ####[facility] ([facility])[address] [place] [address] UREA NITROGEN/CREATININE (MASS RATIO) IN SER/PLAS 40.9 Normal [facility] Comment on above: Performed By: #### L [id number] ####[facility] ([facility])[address] [place] [address] HEMOGLOBIN AND HEMATOCRIT, B LOODon 05-29-2024 Hematocrit (Bld) [Volume fraction] 28.9 % Low 39.0-55.0 [facility] Comment on above: Performed By: #### L [id number] ####[facility] ([facility])[address] [place] [address] Hemoglobin (Bld) [Mass/Vol] 9.9 g/dL Low 13.0-17.0 [facility] Comment on above: Performed By: #### L [id number] ####[facility] ([facility])[address] [place] [address] Hematocrit (Bld) [Volume fraction] 29.9 % Low 39.0-55.0 [facility] Comment on above: Performed By: #### L [id number] ####[facility] ([facility])[address] [place] [address] Hemoglobin (Bld) [Mass/Vol] 10.0 g/dL Low 13.0-17.0 [facility] Comment on above: Performed By: #### L [id number] ####[facility] ([facility])[address] [place] [address] HISTOLOGY - TISSUE EXAMon LAB AP CASE REPORT Normal [facility] Comment on above: Result Comment: Surg ical Pathology Case: [id number] Authorizing Provider: Sarthak Reyes MD Collected: 05/29/2024 0902 Ordering Location: [address] Neurology Received: 05/30/2024 0551 Pathologist: Estrellita Andre MD Specimen: Small Intestine, Terminal Ileum, r/o illitis Performed By: #### L [id number] ####[facility] ([facility])[address] [place] [address] LAB AP CLINICAL INFORMATION Order Diagnoses [facility] Comment on above: Result Comment: K92. 2 - GI bleed [ICD-10-CM] Performed By: #### L [id number] ####[facility] ([facility])[address] [place] [address] LAB AP GROSS DESCRIPTION [facility] Comment on above: Result Comment: A. S mall Intestine, Terminal Ileum. Received in formalin labeled with the patient's name Rocio Jackson and terminal ile rule out illitis, are 2 sanchez-johnson, feathery mucosal fragments, 0.3 cm and 0.2 cm in greatest dimension. The specimen is submitted in toto in 1 cassette. Sabrina Rosario, Pathologists' [employer] Field Service Technician Student Performed By: #### L [id number] ####[facility] ([facility])[address] [place] [address] LAB AP MICROSCOPIC DESCRIPTION Microscopic examination performed. [facility] Comment on above: Performed By: #### L [id number] ####[facility] ([facility])[address] [place] [address] LAB AP REPORT FINAL DIAGNOSIS NARRATIVE [facility] Comment on above: Result Comment: A. T erminal ileum, biopsy: - Small bowel mucosa and Peyer's patch lymphoid tissue with no significant histologic abnormality. Performed By: #### L [id number] ####[facility] ([facility])[address] [place] [address] LACTIC ACID WITH 4 HOUR REFL EXon 05-29-2024 LACTATE (MMOL/L) IN SER/PLAS 0.9 mmol/L Normal 0.5-2.2 [facility] Comment on above: Performed By: #### L [id number] ####[facility] ([facility])[address] [place] [address] MANUAL DIFFERENTIALon 2023 ANISOCYTOSIS PRESENCE IN BLOOD BY LIGHT MICROSCOPY Moderate Normal [facility] Comment on above: Performed By: #### L [id number] ####[facility] ([facility])[address] [place] [address] BASOPHILS (10*3/UL) IN BLOOD BY CALCULATION 0.03 10*3/uL Normal 0.00-0.20 [facility] Comment on above: Performed By: #### L [id number] ####[facility] ([facility])[address] [place] [address] BASOPHILS/100 LEUKOCYTES IN BLOOD BY AUTOMATED COUNT 1.5 % High 0.0-1.0 [facility] Comment on above: Performed By: #### L [id number] ####[facility] ([facility])[address] [place] [address] EOSINOPHILS (10*3/UL) IN BLOOD BY CALCULATION 0.05 10*3/uL Normal 0.00-0.50 [facility] Comment on above: Performed By: #### L [id number] ####[facility] ([facility])[address] [place] [address] EOSINOPHILS/100 LEUKOCYTES IN BLOOD BY AUTOMATED COUNT 2.2 % Normal 0.0-6.0 [facility] Comment on above: Performed By: #### L [id number] ####[facility] ([facility])[address] [place] [address] IMMATURE GRANULOCYTES (10*3/UL) IN BLOOD BY CALCULATION 0.01 10*3/uL Normal 0.00-0.20 [facility] Comment on above: Performed By: #### L [id number] ####[facility] ([facility])[address] [place] [address] IMMATURE GRANULOCYTES/100 LEUKOCYTES IN BLOOD BY AUTOMATED COUNT 0.5 % Normal 0.0-1.0 [facility] Comment on above: Performed By: #### L [id number] ####[facility] ([facility])[address] [place] [address] LYMPHOCYTES (10*3/UL) IN BLOOD BY CALCULATION 0.20 10*3/uL Low 1.20-4.00 [facility] Comment on above: Performed By: #### L [id number] ####[facility] ([facility])[address] [place] [address] LYMPHOCYTES/100 LEUKOCYTES IN BLOOD BY AUTOMATED COUNT 9.6 % Low 20.0-45.0 [facility] Comment on above: Performed By: #### L [id number] ####[facility] ([facility])[address] [place] [address] MONOCYTES (10*3/UL) IN BLOOD BY CALCUATION 0.09 10*3/uL Low 0.10-1.00 [facility] Comment on above: Performed By: #### L [id number] ####[facility] ([facility])[address] [place] [address] MONOCYTES/100 LEUKOCYTES IN BLOOD BY AUTOMATED COUNT 4.4 % Low 5.0-12.0 [facility] Comment on above: Performed By: #### L [id number] ####[facility] ([facility])[address] [place] [address] NEUTROPHILS (10*3/UL) IN BLOOD BY CALCULATION 1.7 10*3/uL Normal 1.6-7.6 [facility] Comment on above: Performed By: #### L [id number] ####[facility] ([facility])[address] [place] [address] NEUTROPHILS/100 LEUKOCYTES IN BLOOD BY AUTOMATED COUNT 82.3 % High 40.0-72.0 [facility] Comment on above: Performed By: #### L [id number] ####[facility] ([facility])[address] [place] [address] PLASMA CELLS/100 LEUKOCYTES IN BLOOD 0 % Normal 0 [facility] Comment on above: Performed By: #### L [id number] ####[facility] ([facility])[address] [place] [address] PLATELETS GIANT PRESENCE IN BLOOD BY LIGHT MICROSCOPY Present Normal [facility] Comment on above: Performed By: #### L [id number] ####[facility] ([facility])[address] [place] [address] POIKILOCYTOSIS (PRESENCE) IN BLOOD BY LIGHT MICROSCOPY Slight Normal [facility] Comment on above: Performed By: #### L [id number] ####[facility] ([facility])[address] [place] [address] POLYCHROMASIA IN BLOOD BY LIGHT MICROSCOPY Slight Normal [facility] Comment on above: Performed By: #### L [id number] ####[facility] ([facility])[address] [place] [address] VARIANT LYMPHOCYTES (10*3/UL) IN BLOOD BY CALCULATION 0.00 10*3/uL Normal 0.00 [facility] Comment on above: Performed By: #### L [id number] ####[facility] ([facility])[address] [place] [address] VARIANT LYMPHOCYTES/100 LEUKOCYTES IN BLOOD CELLAVISION 0.0 % Normal 0.0-0.0 [facility] Comment on above: Performed By: #### L [id number] ####[facility] ([facility])[address] [place] [address] NURSNOTEon 05-29-2024 NURSNOTE Poor prep [facility] NURSNOTE cecum [facility] NURSNOTE No family here per p t, they went to [place], but would like a phone call with an update. Pt states he is naked under his gown, no personal belongings here with him in the pre op . PBC,RNBSN. [facility] NURSNOTE Patient Support Specialist went into pat ient room, patient seemed confused and less alert, notified doctor, ordered cmp, bmp, lactate, and ammonia. Normal [facility] POCT GLUCOSE METER UNSOLICIT ED RESULTSon 05-29-2024 Glucose [Mass/Vol] 94 mg/dL Normal 70-105 [facility] Comment on above: Order Comment: Waive d Testing in the ED is performed under the ED CLIA certificate #[id number]. Result Comment: bacr es Performed By: #### L [id number] #### [facility] ([facility]) [address] [place] [address] B-TYPE NATRIURETIC PEPTIDEon 05-28-2024 Natriuretic peptide B (Bld) [Mass/Vol] 168 pg/mL High 0-100 [facility] Comment on above: Performed By: #### L [id number] #### [facility] ([facility]) [address] [place] [address] BLOOD CULTUREon 05-28-2024 Bacteria identified Cx Nom (Bld) No growth at 5 days Normal [facility] Comment on above: Performed By: #### L [id number] ####[facility] ([facility])[address] [place] [address] Order Comment: From a different site than #1. CBC WITH AUTO DIFFERENTIALon 05-28-2024 Basophils (Bld) [#/Vol] 0.01 10*3/uL Normal 0.00-0.20 [facility] Comment on above: Performed By: #### L [id number] #### [facility] ([facility]) [address] [place] [address] Basophils/100 WBC (Bld) 0.3 % Normal 0.0-1.0 [facility] Comment on above: Performed By: #### L [id number] #### [facility] ([facility]) [address] [place] [address] Eosinophils (Bld) [#/Vol] 0.05 10*3/uL Normal 0.00-0.50 [facility] Comment on above: Performed By: #### L [id number] #### [facility] ([facility]) [address] [place] [address] Eosinophils/100 WBC (Bld) 1.5 % Normal 0.0-6.0 [facility] Comment on above: Performed By: #### L [id number] #### [facility] ([facility]) [address] [place] [address] Erythrocyte distribution width (RBC) [Ratio] 17.2 % High 11.5-15.0 [facility] Comment on above: Performed By: #### L [id number] #### [facility] ([facility]) [address] [place] [address] ERYTHROCYTE MEAN CORPUSCULAR HEMOGLOBIN CONCENTRATION (G/DL) BY AUTOMATED 32.5 g/dL Normal 32.0-35.0 [facility] Comment on above: Performed By: #### L [id number] #### [facility] ([facility]) [address] [place] [address] Hematocrit (Bld) [Volume fraction] 28.6 % Low 39.0-55.0 [facility] Comment on above: Performed By: #### L [id number] #### [facility] ([facility]) [address] [place] [address] Hemoglobin (Bld) [Mass/Vol] 9.3 g/dL Low 13.0-17.0 [facility] Comment on above: Performed By: #### L [id number] #### [facility] ([facility]) [address] [place] [address] Immature granulocytes (Bld) [#/Vol] 0.02 10*3/uL Normal 0.00-0.20 [facility] Comment on above: Performed By: #### L [id number] #### [facility] ([facility]) [address] [place] [address] Immature granulocytes/100 WBC (Bld) 0.6 % Normal 0.0-1.0 [facility] Comment on above: Performed By: #### L [id number] #### [facility] ([facility]) [address] [place] [address] Lymphocytes (Bld) [#/Vol] 0.66 10*3/uL Low 1.20-4.00 [facility] Comment on above: Performed By: #### L [id number] #### [facility] ([facility]) [address] [place] [address] Lymphocytes/100 WBC (Bld) 19.4 % Low 20.0-45.0 [facility] Comment on above: Performed By: #### L [id number] #### [facility] ([facility]) [address] [place] [address] MCH (RBC) [Entitic mass] 32.6 pg Normal 27.0-33.0 [facility] Comment on above: Performed By: #### L [id number] #### [facility] ([facility]) [address] [place] [address] MCV (RBC) [Entitic vol] 100.4 fL High 82.0-98.0 [facility] Comment on above: Performed By: #### L [id number] #### [facility] ([facility]) [address] [address] Monocytes (Bld) [#/Vol] 0.35 10*3/uL Normal 0.10-1.00 [facility] Comment on above: Performed By: #### L [id number] #### [facility] ([facility]) [address] [place] [address] Monocytes/100 WBC (Bld) 10.3 % Normal 5.0-12.0 [facility] Comment on above: Performed By: #### L [id number] #### [facility] ([facility]) [address] [place] [address] Neutrophils (Bld) [#/Vol] 2.31 10*3/uL Normal 1.60-7.60 [facility] Comment on above: Performed By: #### L [id number] #### [facility] ([facility]) [address] [place] [address] Neutrophils/100 WBC (Bld) 67.9 % Normal 40.0-72.0 [facility] Comment on above: Performed By: #### L [id number] #### [facility] ([facility]) [address] [place] [address] NRBC (PER 100 WBCS) BY AUTOMATED COUNT 0.0 % Normal 0 [facility] Comment on above: Performed By: #### L [id number] #### [facility] ([facility]) [address] [place] [address] PLATELETS (10*3/UL) IN BLOOD AUTOMATED COUNT 115 10*3/uL Low 150-400 [facility] Comment on above: Performed By: #### L [id number] #### [facility] ([facility]) [address] [place] [address] RBC (Bld) [#/Vol] 2.85 10*6/uL Low 4.20-5.70 [facility] Comment on above: Performed By: #### L [id number] #### [facility] ([facility]) [address] [place] [address] WBC (Bld) [#/Vol] 3.40 10*3/uL Low 4.00-10.60 [facility] Comment on above: Performed By: #### L [id number] #### [facility] ([facility]) [address] [place] [address] Basophils (Bld) [#/Vol] 0.00 10*3/uL Normal 0.00-0.20 [facility] Comment on above: Performed By: #### L [id number] #### [facility] ([facility]) [address] [place] [address] Basophils/100 WBC (Bld) 0.0 % Normal 0.0-1.0 [facility] Comment on above: Performed By: #### L [id number] #### [facility] ([facility]) [address] [place] [address] Eosinophils (Bld) [#/Vol] 0.04 10*3/uL Normal 0.00-0.50 [facility] Comment on above: Performed By: #### L [id number] #### [facility] ([facility]) [address] [place] [address] Eosinophils/100 WBC (Bld) 1.2 % Normal 0.0-6.0 [facility] Comment on above: Performed By: #### L [id number] #### [facility] ([facility]) [address] [place] [address] Erythrocyte distribution width (RBC) [Ratio] 16.9 % High 11.5-15.0 [facility] Comment on above: Performed By: #### L [id number] #### [facility] ([facility]) [address] [place] [address] ERYTHROCYTE MEAN CORPUSCULAR HEMOGLOBIN CONCENTRATION (G/DL) BY AUTOMATED 33.0 g/dL Normal 32.0-35.0 [facility] Comment on above: Performed By: #### L [id number] #### [facility] ([facility]) [address] [place] [address] Hematocrit (Bld) [Volume fraction] 26.4 % Low 39.0-55.0 [facility] Comment on above: Performed By: #### L [id number] #### [facility] ([facility]) [address] [address] Hemoglobin (Bld) [Mass/Vol] 8.7 g/dL Low 13.0-17.0 [facility] Comment on above: Performed By: #### L [id number] #### [facility] ([facility]) [address] [address] Immature granulocytes (Bld) [#/Vol] 0.03 10*3/uL Normal 0.00-0.20 [facility] Comment on above: Performed By: #### L [id number] #### [facility] ([facility]) [address] [place] [address] Immature granulocytes/100 WBC (Bld) 0.9 % Normal 0.0-1.0 [facility] Comment on above: Performed By: #### L [id number] #### [facility] ([facility]) [address] [place] [address] Lymphocytes (Bld) [#/Vol] 0.72 10*3/uL Low 1.20-4.00 [facility] Comment on above: Performed By: #### L [id number] #### [facility] ([facility]) [address] [place] [address] Lymphocytes/100 WBC (Bld) 21.3 % Normal 20.0-45.0 [facility] Comment on above: Performed By: #### L [id number] #### [facility] ([facility]) [address] [address] MCH (RBC) [Entitic mass] 32.6 pg Normal 27.0-33.0 [facility] Comment on above: Performed By: #### L [id number] #### [facility] ([facility]) [address] [address] MCV (RBC) [Entitic vol] 98.9 fL High 82.0-98.0 [facility] Comment on above: Performed By: #### L [id number] #### [facility] ([facility]) [address] [place] [address] Monocytes (Bld) [#/Vol] 0.34 10*3/uL Normal 0.10-1.00 [facility] Comment on above: Performed By: #### L [id number] #### [facility] ([facility]) [address] [place] [address] Monocytes/100 WBC (Bld) 10.1 % Normal 5.0-12.0 [facility] Comment on above: Performed By: #### L [id number] #### [facility] ([facility]) [address] [address] Neutrophils (Bld) [#/Vol] 2.25 10*3/uL Normal 1.60-7.60 [facility] Comment on above: Performed By: #### L [id number] #### [facility] ([facility]) [address] [place] [address] Neutrophils/100 WBC (Bld) 66.5 % Normal 40.0-72.0 [facility] Comment on above: Performed By: #### L [id number] #### [facility] ([facility]) [address] [place] [address] NRBC (PER 100 WBCS) BY AUTOMATED COUNT 0.0 % Normal 0 [facility] Comment on above: Performed By: #### L [id number] #### [facility] ([facility]) [address] [place] [address] PLATELETS (10*3/UL) IN BLOOD AUTOMATED COUNT 222 10*3/uL Normal 150-400 [facility] Comment on above: Performed By: #### L [id number] #### [facility] ([facility]) [address] [place] [address] RBC (Bld) [#/Vol] 2.67 10*6/uL Low 4.20-5.70 [facility] Comment on above: Performed By: #### L [id number] #### [facility] ([facility]) [address] [place] [address] WBC (Bld) [#/Vol] 3.38 10*3/uL Low 4.00-10.60 [facility] Comment on above: Performed By: #### L [id number] #### [facility] ([facility]) [address] [place] [address] COMPREHENSIVE METABOLIC PANE Huseyin 05-28-2024 Albumin [Mass/Vol] 2.1 g/dL Low 3.5-5.7 [facility] Comment on above: Performed By: #### L [id number] #### [facility] ([facility]) [address] [place] [address] ALP [Catalytic activity/Vol] 90 U/L Normal 34-104 [facility] Comment on above: Performed By: #### L [id number] #### [facility] ([facility]) [address] [place] [address] ALT [Catalytic activity/Vol] 8 U/L Normal 7-52 [facility] Comment on above: Performed By: #### L [id number] #### [facility] ([facility]) [address] [place] [address] Anion gap [Moles/Vol] 10 mmol/L Normal 7-20 [facility] Comment on above: Performed By: #### L [id number] #### [facility] ([facility]) [address] [place] [address] AST [Catalytic activity/Vol] 14 U/L Normal 13-39 [facility] Comment on above: Performed By: #### L [id number] #### [facility] ([facility]) [address] [place] [address] Bilirubin [Mass/Vol] 0.6 mg/dL Normal 0.3-1.[address] [facility] Comment on above: Performed By: #### L [id number] #### [facility] ([facility]) [address] [place] [address] Calcium [Mass/Vol] 7.1 mg/dL Low 8.6-10.3 [facility] Comment on above: Performed By: #### L [id number] #### [facility] ([facility]) [address] [place] [address] Chloride [Moles/Vol] 109 mmol/L High 98-[address] [facility] Comment on above: Performed By: #### L [id number] #### [facility] ([facility]) [address] [place] [address] CO2 [Moles/Vol] 20 mmol/L Low 21-31 [facility] Comment on above: Performed By: #### L [id number] #### [facility] ([facility]) [address] [place] [address] Creatinine [Mass/Vol] 0.46 mg/dL Low 0.70-1.30 [facility] Comment on above: Performed By: #### L [id number] #### [facility] ([facility]) [address] [place] [address] GLOMERULAR FILTRATION RATE ML/MIN/1.73 SQ M.PREDICTED 115.4 mL/min/1.73m*2 Normal >60.0 [facility] Comment on above: Result Comment: [facility]???s estimated glomerular filtration rate (eGFR) will no [...] individuals. Performed By: #### L [id number] #### [facility] ([facility]) [address] [place] [address] Glucose [Mass/Vol] 75 mg/dL Normal 70-100 [facility] Comment on above: Performed By: #### L [id number] #### [facility] ([facility]) [address] [place] [address] Potassium [Moles/Vol] 4.0 mmol/L Normal 3.5-5.1 [facility] Comment on above: Performed By: #### L [id number] #### [facility] ([facility]) [address] [place] [address] Protein [Mass/Vol] 4.3 g/dL Low 6.0-8.3 [facility] Comment on above: Performed By: #### L [id number] #### [facility] ([facility]) [address] [place] [address] Sodium [Moles/Vol] 135 mmol/L Low 136-145 [facility] Comment on above: Performed By: #### L [id number] #### [facility] ([facility]) [address] [place] [address] Urea nitrogen [Mass/Vol] 32 mg/dL High 7-25 [facility] Comment on above: Performed By: #### L [id number] #### [facility] ([facility]) [address] [place] [address] UREA NITROGEN/CREATININE (MASS RATIO) IN SER/PLAS 69.6 Normal [facility] Comment on above: Performed By: #### L [id number] #### [facility] ([facility]) [address] [place] [address] CONSULTon 05-28-2024 CONSULT -------- Attestation signed by [...] bowel prep for diagnostic colonoscopy with GI [facility] General Surgery CONSULTATION Reason for Consult: CT [...] Stopped at 05/28/24 0431 flu vac 2023 [id number](PF) 45 mcg (15 mcg x 3)/0.5 mL [...] Moved in (more content not included)... Normal [facility] CONSULT -------- Attestation signed by Sarthak Reyes MD at 05/28/2024 4:32 PM The patient was seen and examined. Agree with assessment and plan. The patient is transferred from [facility] for the recent finding of melena [...] therapy in December 2017 was transferred from [facility] as a case of GI bleeding. [...] that the patient was following up with [facility]. He had EGD and colonoscopy done in [...] 4.3* B12/Folate/Iron studies: No results found for: [id number] , FOLATE , IRON , TIBC , UIBC , IRONSAT , FERRITIN Viral Hepatitis No results found for: HEPAIGM , HAV , HEPBSAG , HEPBSAB , HEPBEAB , HEPB (more content not included)... Normal [facility] EDNURSon 05-28-2024 EDNURS 5154 Abhilash x 1881 Normal [facility] HEMOGLOBIN AND HEMATOCRIT, B LOODon 05-28-2024 Hematocrit (Bld) [Volume fraction] 31.4 % Low 39.0-55.0 [facility] Comment on above: Performed By: #### L [id number] #### [facility] ([facility]) [address] [place] [address] Hemoglobin (Bld) [Mass/Vol] 10.2 g/dL Low 13.0-17.0 [facility] Comment on above: Performed By: #### L [id number] #### [facility] ([facility]) [address] [place] [address] Hematocrit (Bld) [Volume fraction] 30.8 % Low 39.0-55.0 [facility] Comment on above: Performed By: #### L [id number] ####[facility] ([facility])[address] [place] [address] Hemoglobin (Bld) [Mass/Vol] 10.3 g/dL Low 13.0-17.0 [facility] Comment on above: Performed By: #### L [id number] ####[facility] ([facility])[address] [place] [address] Hematocrit (Bld) [Volume fraction] 29.9 % Low 39.0-55.0 [facility] Comment on above: Performed By: #### L [id number] ####[facility] ([facility])[address] [place] [address] Hemoglobin (Bld) [Mass/Vol] 10.1 g/dL Low 13.0-17.0 [facility] Comment on above: Performed By: #### L [id number] ####[facility] ([facility])[address] [place] [address] LACTIC ACID WITH 4 HOUR REFL EXon 05-28-2024 LACTATE (MMOL/L) IN SER/PLAS 0.6 mmol/L Normal 0.5-2.2 [facility] Comment on above: Performed By: #### L [id number] #### [facility] ([facility]) [address] [place] [address] POCT GLUCOSE METER UNSOLICIT ED RESULTSon 05-28-2024 Glucose [Mass/Vol] 86 mg/dL Normal 70-105 [facility] Comment on above: Order Comment: Waive d Testing in the ED is performed under the ED CLIA certificate #[id number]. Result Comment: ndub [id number] Performed By: #### L [id number] ####[facility] ([facility])[address] [place] [address] BASIC METABOLIC PANELon 04-30 Anion gap [Moles/Vol] 12 mmol/L Normal 7-20 [facility] Comment on above: Performed By: #### L [id number] #### [facility] ([facility]) [address] [place] [address] Calcium [Mass/Vol] 7.0 mg/dL Low 8.6-10.3 [facility] Comment on above: Performed By: #### L [id number] #### [facility] ([facility]) [address] [place] [address] Chloride [Moles/Vol] 107 mmol/L Normal 98-[address] [facility] Comment on above: Performed By: #### L [id number] #### [facility] ([facility]) [address] [place] [address] CO2 [Moles/Vol] 22 mmol/L Normal 21-31 [facility] Comment on above: Performed By: #### L [id number] #### [facility] ([facility]) [address] [place] [address] Creatinine [Mass/Vol] 0.54 mg/dL Low 0.70-1.30 [facility] Comment on above: Performed By: #### L [id number] #### [facility] ([facility]) [address] [place] [address] Performed By: #### L [id number] #### [facility] ([facility]) [address] [place] [address] GLOMERULAR FILTRATION RATE ML/MIN/1.73 SQ M.PREDICTED 109.9 mL/min/1.73m*2 Normal >60.0 [facility] Comment on above: Result Comment: [facility]???s estimated glomerular filtration rate (eGFR) will no [...] individuals. Performed By: #### L [id number] #### [facility] ([facility]) [address] [place] [address] Performed By: #### L [id number] #### [facility] ([facility]) [address] [place] [address] Glucose [Mass/Vol] 85 mg/dL Normal 70-100 [facility] Comment on above: Performed By: #### L [id number] #### [facility] ([facility]) [address] [place] [address] Potassium [Moles/Vol] 4.1 mmol/L Normal 3.5-5.1 [facility] Comment on above: Performed By: #### L [id number] #### [facility] ([facility]) [address] [place] [address] Sodium [Moles/Vol] 137 mmol/L Normal 136-145 [facility] Comment on above: Performed By: #### L [id number] #### [facility] ([facility]) [address] [place] [address] Urea nitrogen [Mass/Vol] 37 mg/dL High 7-25 [facility] Comment on above: Performed By: #### L [id number] #### [facility] ([facility]) [address] [place] [address] UREA NITROGEN/CREATININE (MASS RATIO) IN SER/PLAS 68.5 Normal [facility] Comment on above: Performed By: #### L [id number] #### [facility] ([facility]) [address] [place] [address] CBC WITH AUTO DIFFERENTIALon 05-27-2024 Basophils (Bld) [#/Vol] 0.00 10*3/uL Normal 0.00-0.20 [facility] Comment on above: Performed By: #### L [id number] #### [facility] ([facility]) [address] [place] [address] Basophils/100 WBC (Bld) 0.0 % Normal 0.0-1.0 [facility] Comment on above: Performed By: #### L [id number] #### [facility] ([facility]) [address] [place] [address] Eosinophils (Bld) [#/Vol] 0.03 10*3/uL Normal 0.00-0.50 [facility] Comment on above: Performed By: #### L [id number] #### [facility] ([facility]) [address] [place] [address] Eosinophils/100 WBC (Bld) 1.0 % Normal 0.0-6.0 [facility] Comment on above: Performed By: #### L [id number] #### [facility] ([facility]) [address] [place] [address] Erythrocyte distribution width (RBC) [Ratio] 14.8 % Normal 11.5-15.0 [facility] Comment on above: Performed By: #### L [id number] #### [facility] ([facility]) [address] [place] [address] ERYTHROCYTE MEAN CORPUSCULAR HEMOGLOBIN CONCENTRATION (G/DL) BY AUTOMATED 33.1 g/dL Normal 32.0-35.0 [facility] Comment on above: Performed By: #### L [id number] #### [facility] ([facility]) [address] [place] [address] Hematocrit (Bld) [Volume fraction] 23.6 % Low 39.0-55.0 [facility] Comment on above: Performed By: #### L [id number] #### [facility] ([facility]) [address] [place] [address] Hemoglobin (Bld) [Mass/Vol] 7.8 g/dL Low 13.0-17.0 [facility] Comment on above: Performed By: #### L [id number] #### [facility] ([facility]) [address] [place] [address] Immature granulocytes (Bld) [#/Vol] 0.02 10*3/uL Normal 0.00-0.20 [facility] Comment on above: Performed By: #### L [id number] #### [facility] ([facility]) [address] [place] [address] Immature granulocytes/100 WBC (Bld) 0.6 % Normal 0.0-1.0 [facility] Comment on above: Performed By: #### L [id number] #### [facility] ([facility]) [address] [place] [address] Lymphocytes (Bld) [#/Vol] 0.59 10*3/uL Low 1.20-4.00 [facility] Comment on above: Performed By: #### L [id number] #### [facility] ([facility]) [address] [place] [address] Lymphocytes/100 WBC (Bld) 18.7 % Low 20.0-45.0 [facility] Comment on above: Performed By: #### L [id number] #### [facility] ([facility]) [address] [address] MCH (RBC) [Entitic mass] 34.1 pg High 27.0-33.0 [facility] Comment on above: Performed By: #### L [id number] #### [facility] ([facility]) [address] [address] MCV (RBC) [Entitic vol] 103.1 fL High 82.0-98.0 [facility] Comment on above: Performed By: #### L [id number] #### [facility] ([facility]) [address] [place] [address] Monocytes (Bld) [#/Vol] 0.33 10*3/uL Normal 0.10-1.00 [facility] Comment on above: Performed By: #### L [id number] #### [facility] ([facility]) [address] [place] [address] Monocytes/100 WBC (Bld) 10.5 % Normal 5.0-12.0 [facility] Comment on above: Performed By: #### L [id number] #### [facility] ([facility]) [address] [place] [address] Neutrophils (Bld) [#/Vol] 2.18 10*3/uL Normal 1.60-7.60 [facility] Comment on above: Performed By: #### L [id number] #### [facility] ([facility]) [address] [place] [address] Neutrophils/100 WBC (Bld) 69.2 % Normal 40.0-72.0 [facility] Comment on above: Performed By: #### L [id number] #### [facility] ([facility]) [address] [address] NRBC (PER 100 WBCS) BY AUTOMATED COUNT 0.0 % Normal 0 [facility] Comment on above: Performed By: #### L [id number] #### [facility] ([facility]) [address] [place] [address] PLATELETS (10*3/UL) IN BLOOD AUTOMATED COUNT 220 10*3/uL Normal 150-400 [facility] Comment on above: Performed By: #### L [id number] #### [facility] ([facility]) [address] [place] [address] RBC (Bld) [#/Vol] 2.29 10*6/uL Low 4.20-5.70 [facility] Comment on above: Performed By: #### L [id number] #### [facility] ([facility]) [address] [address] WBC (Bld) [#/Vol] 3.15 10*3/uL Low 4.00-10.60 [facility] Comment on above: Performed By: #### L [id number] #### [facility] ([facility]) [address] [place] [address] CONSULTon 05-27-2024 CONSULT -------- Attestation signed by Florentino De León MD at 05/29/2024 11:17 AM Agree with assessment and plan Florentino De León MD Adult ICU Consultation Patient - Rocio Jackson Age - 68 y.o. - 1955 [facility] # - [id number] Date of Admission - 05/27/2024 7:12 PM Chief Complaint Acute GI bleed History of Present Illness Rocio Jackson is a 68 y.o. male with past medical history of hx of DM, HTN, CAD, s/p PCI, history of iron deficiency anemia, folate deficiency anemia, B12 deficiency anemia with stent placement, PSH of cholecystectomy, whipple procedure for duodenal mass 2015 presented to [facility] ED with chief complaint of lower [...] fibrillation of Eliquis Mixed HLD History of [place] in 2011, status post [employer] Monitor vital signs Patient is an appropriate admission to step down unit Trend H&H q6h, transfuse to keep Hgb > 8 Vital signs improved post transfusion of 1 unit of PRBC Check TTE, troponin and BNP Advise to start gambling monitor Would start patient on rocephin and flagyl for colitis treatment Give a bolus of IV fluids Consult to gastroenterology Hold of dvt chemo prophylaxis Hold home dose eliquis Start Protonix 40 every day Established bilateral peripheral large bore IV venous access Thank you for your consultation. Don't hesitate to contact MICU for any questions. Ford Sun MD Pulmonary & Critical Care Medicine [facility] (more content not included)... Normal [facility] CT ABDOMEN PELVIS W IV CONTR Elana [...] nonspecific mesenteric lymph nodes likely reactive basis Moore is grossly pathological by size criteria. There [...] mild pneumobilia Electronically signed: Donny Valadez. Normal [facility] EDNURSon 05-27-2024 EDNURS Ems states pt was di rect admit from [facility] and started decompessating in route and needed to be reevaluated. Normal [facility] EDPROVon 05-27-2024 EDPROV History of Present I llness Chief Complaint Patient presents with ??? Shortness of Breath Patient presents today with concern for lower GI bleed. He was seen at an outside hospital and was in the process of being transferred to [facility] as a direct admission. However during transport patient reportedly became hypotensive and tachycardic despite receiving 1 unit of blood. He currently denies dizziness, headache, chest pain, shortness of breath, or abdominal pain. He endorses continued lower GI bleed. [place] Coma Scale Score: 15 History No past [...] Making 2022 Emergency Medicine Coding Guide from [employer] on 05/28/2024 All calculations should be rechecked [...] DO FreitasAamircynthia Luciano, DO 05/28/24 1649 Normal [facility] TROPONIN Ion 05-27-2024 Troponin I.cardiac [Mass/Vol] 0.00 ng/mL Normal 0.00-0.04 [facility] Comment on above: Performed By: #### L [id number] ####[facility] ([facility])[address] [place] [address] TYPE AND SCREENon 05-27-2024 AB SCREEN Negative Normal [facility] Comment on above: Performed By: #### L [id number] #### [facility] , ABO group Nom (Bld) A [facility] Comment on above: Performed By: #### L [id number] #### [facility] , RH TYPE IN BLOOD Positive Normal [facility] Comment on above: Performed By: #### L [id number] #### [facility] , CNNURSEon 04-28-2024 CNNURSE Nurse Visit (HEMASA) ROCIO JACKSON ([id number]) 1955 M Date Time Provider Department 04/28/24 2:45 PM [facility] NURSE ZELALEM POOL During your visit today, we recorded the following information about you: Temperature Pulse Respiration Blood pressure 97 degrees 106/minute 18/minute 78/50 Livier Seay MA 04/28/2024 2:55 PM Signed Patient Identification confirmed: yes. Injection given and documented on AUG per provider order. Livier Seay MA Referring Provider: ZAHRA MAY [[id number]] Allergies As of Date: 04/28/2024 (No Known Allergies) Date Reviewed: 04/01/2024 Reviewed by: Rola Gordon APRN.SPEECH TEACHER - Fully Assessed Primary Visit Diagnosis:Cancer of [...] as designated per enteric contrast guidelines - rvaqvw-jmjiejoc-ilzmbxb (ZENPEP) 25,000-79,000- 105,000 unit delayed release capsule Take 2 capsules by mouth three times a day with meals. - wjgevz-scswncwq-ozotdzr (CREON 24) 24,000-76,000 -120,000 unit delayed release [...] *09/10/2023 Visit Notes: >> Livier Seay MA [facility] Apr 28, 2024 2:52 PM Status: Signed Patient Identification confirmed: yes. Injection given and documented on AUG per provider order. Livier Seay MA Prescriptions ordered this encounter Disp Refills Start End CYANOCOBALAMIN (VIT B-12) 1,000 MCG/* 04/28/2024 04/28/2024 Route: INTRAMUSCULA Encounter Status:Closed by LIVIER [facility] ([facility]) ROCIO JACKSON ([id number]) 1955 M Date Time Provider Department 03/31/24 2:30 PM [facility] NURSE ZELALEM HART HEMCANDIE During your visit today, we recorded the following information about you: Srinivasan See MA 03/31/2024 2:45 PM Signed Patient Identification confirmed: yes. Injection given and documented on AUG per provider order. Srinivasan See MA Referring Provider: ZAHRA MAY [[id number]] Allergies As of Date: 03/31/2024 (No Known [...] three times a day with meals. - lcgacq-uinyngqt-pdxbisl (ZENPEP) 25,000-79,000- 105,000 unit delayed release capsule Take 2 capsules by mouth three times a day with meals. - upyndt-gzccsjpn-uspqpry (CREON 24) 24,000-76,000 -120,000 unit delayed release [...] *09/10/2023 Visit Notes: >> Srinivasan See MA [facility] Mar 31, 2024 2:43 PM Status: Signed Patient Identification confirmed: yes. Injection given and documented on AUG per provider order. Srinivasan See MA Prescriptions ordered this encounter Disp Refills Start End CYANOCOBALAMIN (VIT B-12) 1,000 MCG/* 03/31/2024 03/31/2024 Route: INTRAMUSCULA Encounter Status:Closed by SRINIVASAN SEE on 03/31/24 [facility] CNOVSPon 03-10-2024 OVSP Visit (SP) Office ([facility]) ROCIO JACKSON ([id number]) 1955 M Date Time Provider Department 03/10/24 2:30 PM ZAHRA MAY During your visit today, we recorded the following information about you: Temperature Pulse Respiration Blood pressure 97.7 degrees 79/minute 16/minute 98/66 Zahra May MD 03/12/2024 8:26 AM Signed NAME: Rocio Jackson CLINIC NO.: [id number] DATE OF SERVICE: March 10, 2024 (viviana) [...] likely infec (more content not included)... Normal [facility] CA 19-9on 03-04-2024 Cancer Ag 19-9 Qn 18.0 [arb'U]/mL NINF - 36.0 U/mL [facility] Comment on above: Cancer antigen 19-9 test is used as an aid in monitoring response to treatment or recurrence in patients with established pancreatic, hepatobiliary, or gastrointestinal malignancies. Clinical correlation is required. The CA 19-9 Antigen test was performed using the [employer] DXI paramagnetic particle chemiluminescent immunoassay method. [...] the report reviewed and electronically signed by: ADNIELLE OLIVA MD on Mar 04 2024 12:05PM EST Thank you for allowing us to participate in the care of your patient. Should there be any questions regarding this interpretation, please call [phone]. If you are unable to reach us at the number above, please feel free to contact [facility] eRadiology at [phone]. DIVISION OF RADIOLOGY * * *Final Report* [...] findings. DIVISION OF RADIOLOGY Provider, Danette Figueroa [facility] - 03/04/2024 * * *Final Report* [...] any questions regarding this interpretation, please call [phone]. If you are unable to reach us at the number above, please feel free to contact [facility] eRadiology at [phone]. [facility] CT Abdomen and Pelvis W cont rast IVOrdered By: Ccf Provider on 03-04-20[address] [facility] [address] Chest W contrast Petty [...] any questions regarding this interpretation, please call [phone]. If you are unable to reach us at the number above, please feel free to contact [facility] eRadiology at [phone]. DIVISION OF RADIOLOGY * * *Final Report* [...] any questions regarding this interpretation, please call [phone]. If you are unable to reach us at the number above, please feel free to contact [facility] at [phone]. [facility] Cancer Ag 19-9 Qnon 03-04-20 Interpretation and review of laboratory results Normal [facility] Cobalamin (Vitamin B12) [Mas s/Vol]on 03-04-2024 Interpretation and review of laboratory results Normal [facility] FERRITINon 03-04-2024 Ferritin [Mass/Vol] 647.0 ng/mL High 30.3 - 565.7 ng/mL [facility] Ferritin [Mass/Vol]on 2023 Interpretation and review of laboratory results Abnormal [facility] Iron and Iron binding capaci ty panelon 03-04-2024 Iron [Mass/Vol] 42 ug/dL 41 - 186 ug/dL [facility] Iron binding capacity [Mass/Vol] [facility] Comment on above: Unable to calculate due to hemolysis. Iron/TIBC [Molar ratio] [facility] Comment on above: Unable to calculate due to hemolysis. [facility] VITAMIN B12on 03-04-2024 Cobalamin (Vitamin B12) [Mass/Vol] 979 pg/mL 232 - 1245 pg/mL [facility] Basophils Auto (Bld) [#/Vol] on 03-03-2024 Basophils (Bld) [#/Vol] Automated basophil count <0.11 [facility] Basophils/100 WBC Auto (Bld) on 03-03-2024 Basophils/100 WBC (Bld) Automated basophil % [facility] Blood manual differential co mment interpretation narrativeon 03-03-2024 Manual differential comment Evgeny (Bld) [Interp] Blood manual differential comment interpretation narrative [facility] CBC W Auto Differential pane l (Bld)on 03-03-2024 Basophils (Bld) [#/Vol] [facility] Basophils/100 WBC (Bld) 0.3 % [facility] Differential cell count method Nom (Bld) Auto [facility] Eosinophils (Bld) [#/Vol] 0.09 10*3/uL [facility] Eosinophils/100 WBC (Bld) 2.6 % [facility] Erythrocyte distribution width (RBC) [Ratio] 13.0 % 11.5 - 15.0 % [facility] Hematocrit (Bld) [Volume fraction] 30.8 % Low 39.0 - 51.0 % [facility] Hemoglobin (Bld) [Mass/Vol] 10.4 g/dL Low 13.0 - 17.0 g/dL [facility] Immature granulocytes (Bld) [#/Vol] NINF [facility] Immature granulocytes/100 WBC (Bld) 0.3 % [facility] Interpretation and review of laboratory results Abnormal [facility] Lymphocytes (Bld) [#/Vol] 0.79 10*3/uL Low [facility] Lymphocytes/100 WBC (Bld) 22.4 % [facility] MCH (RBC) [Entitic mass] 35.5 pg High 26.0 - 34.0 pg [facility] MCHC (RBC) [Mass/Vol] 33.8 g/dL 30.5 - 36.0 g/dL [facility] MCV (RBC) [Entitic vol] 105.1 fL High 80.0 - 100.0 fL [facility] Monocytes (Bld) [#/Vol] 0.26 10*3/uL [facility] Monocytes/100 WBC (Bld) 7.4 % [facility] Neutrophils (Bld) [#/Vol] 2.36 10*3/uL [facility] Neutrophils/100 WBC (Bld) 67.0 % [facility] Nucleated RBC (Bld) [#/Vol] NINF [facility] Nucleated RBC/100 WBC (Bld) [Ratio] 0.0 % /100 WBC [facility] Platelet mean volume (Bld) [Entitic vol] 8.8 fL Low 9.0 - 12.7 fL [facility] Platelets (Bld) [#/Vol] 284 10*3/uL [facility] RBC (Bld) [#/Vol] 2.93 10*6/uL Low 4.20 - 6.00 m/uL [facility] WBC (Bld) [#/Vol] 3.52 10*3/uL Low [facility] Basophils (Bld) [#/Vol] 10*3/uL Normal <0.11 [facility] Comment on above: Order Comment: Speci men Type: BLOOD SPECIMENOrdering Facility: [facility] Address: [address] [place] [address] Performed By: #### 5 7021-8 ####[facility] LABCLIA [id number] [place] [address] Basophils/100 WBC (Bld) 0.3 % Normal [facility] Comment on above: Order Comment: Speci men Type: BLOOD SPECIMENOrdering Facility: [facility] Address: [address] [place] [address] Performed By: #### 5 7021-8 ####[facility] LABCLIA [id number] [place] [address] Differential cell count method Nom (Bld) Auto Normal [facility] Comment on above: Order Comment: Speci men Type: BLOOD SPECIMENOrdering Facility: [facility] Address: [address] [place] [address] Performed By: #### 5 7021-8 ####[facility] LABCLIA [id number] [place] [address] Eosinophils (Bld) [#/Vol] 0.09 10*3/uL Normal <0.46 [facility] Comment on above: Order Comment: Speci men Type: BLOOD SPECIMENOrdering Facility: [facility] Address: [address] [place] [address] Performed By: #### 5 7021-8 ####[facility] LABCLIA [id number] [place] [address] Eosinophils/100 WBC (Bld) 2.6 % Normal [facility] Comment on above: Order Comment: Speci men Type: BLOOD SPECIMENOrdering Facility: [facility] Address: [address] [place] [address] Performed By: #### 5 7021-8 ####[facility] LABCLIA [id number] [place] [address] Erythrocyte distribution width (RBC) [Ratio] 13.0 % Normal 11.5-15.0 [facility] Comment on above: Order Comment: Speci men Type: BLOOD SPECIMENOrdering Facility: [facility] Address: [address] [place] [address] Performed By: #### 5 7021-8 ####[facility] LABCLIA [id number] [place] [address] Hematocrit (Bld) [Volume fraction] 30.8 % Low 39.0-51.0 [facility] Comment on above: Order Comment: Speci men Type: BLOOD SPECIMENOrdering Facility: [facility] Address: [address] [place] [address] Performed By: #### 5 7021-8 ####[facility] LABCLIA [id number] [place] [address] Hemoglobin (Bld) [Mass/Vol] 10.4 g/dL Low 13.0-17.0 [facility] Comment on above: Order Comment: Speci men Type: BLOOD SPECIMENOrdering Facility: [facility] Address: [address] [place] [address] Performed By: #### 5 7021-8 ####[facility] LABCLIA [id number] [place] [address] Immature granulocytes (Bld) [#/Vol] 10*3/uL Normal <0.10 [facility] Comment on above: Order Comment: Speci men Type: BLOOD SPECIMENOrdering Facility: [facility] Address: [address] [place] [address] Performed By: #### 5 7021-8 ####[facility] LABCLIA [id number] [place] [address] Immature granulocytes/100 WBC (Bld) 0.3 % Normal [facility] Comment on above: Order Comment: Speci men Type: BLOOD SPECIMENOrdering Facility: [facility] Address: [address] [place] [address] Performed By: #### 5 7021-8 ####[facility] LABCLIA [id number] [place] [address] Lymphocytes (Bld) [#/Vol] 0.79 10*3/uL Low 1.00-4.00 [facility] Comment on above: Order Comment: Speci men Type: BLOOD SPECIMENOrdering Facility: [facility] Address: [address] [place] [address] Performed By: #### 5 7021-8 ####[facility] LABCLIA [id number] [place] [address] Lymphocytes/100 WBC (Bld) 22.4 % Normal [facility] Comment on above: Order Comment: Speci men Type: BLOOD SPECIMENOrdering Facility: [facility] Address: [address] [place] [address] Performed By: #### 5 7021-8 ####[facility] LABCLIA [id number] [place] [address] MCH (RBC) [Entitic mass] 35.5 pg High 26.0-34.0 [facility] Comment on above: Order Comment: Speci men Type: BLOOD SPECIMENOrdering Facility: [facility] Address: [address] [place] [address] Performed By: #### 5 7021-8 ####[facility] LABCLIA [id number] [place] [address] MCHC (RBC) [Mass/Vol] 33.8 g/dL Normal 30.5-36.0 [facility] Comment on above: Order Comment: Speci men Type: BLOOD SPECIMENOrdering Facility: [facility] Address: [address] [place] [address] Performed By: #### 5 7021-8 ####[facility] LABCLIA [id number] [place] [address] MCV (RBC) [Entitic vol] 105.1 fL High 80.0-100.0 [facility] Comment on above: Order Comment: Speci men Type: BLOOD SPECIMENOrdering Facility: [facility] Address: [address] [place] [address] Performed By: #### 5 7021-8 ####[facility] LABCLIA [id number] [place] [address] Monocytes (Bld) [#/Vol] 0.26 10*3/uL Normal <0.87 [facility] Comment on above: Order Comment: Speci men Type: BLOOD SPECIMENOrdering Facility: [facility] Address: [address] [place] [address] Performed By: #### 5 7021-8 ####[facility] LABCLIA [id number] [place] [address] Monocytes/100 WBC (Bld) 7.4 % Normal [facility] Comment on above: Order Comment: Speci men Type: BLOOD SPECIMENOrdering Facility: [facility] Address: [address] [place] [address] Performed By: #### 5 7021-8 ####[facility] LABIA [id number] [place] [address] Neutrophils (Bld) [#/Vol] 2.36 10*3/uL Normal 1.45-7.50 [facility] Comment on above: Order Comment: Speci men Type: BLOOD SPECIMENOrdering Facility: [facility] Address: [address] [place] [address] Performed By: #### 5 7021-8 ####[facility] LABCLIA [id number] [place] [address] Neutrophils/100 WBC (Bld) 67.0 % Normal [facility] Comment on above: Order Comment: Speci men Type: BLOOD SPECIMENOrdering Facility: [facility] Address: [address] [place] [address] Performed By: #### 5 7021-8 ####[facility] LABIA [id number] [place] [address] Nucleated RBC (Bld) [#/Vol] 10*3/uL Normal <0.01 [facility] Comment on above: Order Comment: Speci men Type: BLOOD SPECIMENOrdering Facility: [facility] Address: [address] [place] [address] Performed By: #### 5 7021-8 ####[facility] LABCLIA [id number] [place] [address] Nucleated RBC/100 WBC (Bld) [Ratio] 0.0 /100 WBC Normal [facility] Comment on above: Order Comment: Speci men Type: BLOOD SPECIMENOrdering Facility: [facility] Address: [address] [place] [address] Performed By: #### 5 7021-8 ####[facility] LABCLIA [id number] [place] [address] Platelet mean volume (Bld) [Entitic vol] 8.8 fL Low 9.0-12.7 [facility] Comment on above: Order Comment: Speci men Type: BLOOD SPECIMENOrdering Facility: [facility] Address: [address] [place] [address] Performed By: #### 5 7021-8 ####[facility] LABCLIA [id number] [place] [address] Platelets (Bld) [#/Vol] 284 10*3/uL Normal 150-400 [facility] Comment on above: Order Comment: Speci men Type: BLOOD SPECIMENOrdering Facility: [facility] Address: [address] [place] [address] Performed By: #### 5 7021-8 ####[facility] LABCLIA [id number] [place] [address] RBC (Bld) [#/Vol] 2.93 10*6/uL Low 4.20-6.00 [facility] Comment on above: Order Comment: Speci men Type: BLOOD SPECIMENOrdering Facility: [facility] Address: [address] [place] [address] Performed By: #### 5 7021-8 ####[facility] LABCLIA [id number] [place] [address] WBC (Bld) [#/Vol] 3.52 10*3/uL Low 3.70-11.00 [facility] Comment on above: Order Comment: Speci men Type: BLOOD SPECIMENOrdering Facility: [facility] Address: [address] [place] [address] Performed By: #### 5 7021-8 ####[facility] LABCLIA [id number] [place] [address] [address]on 03-03-2024 [facility] Nurse Visit (HEMASA) ROCIO JACKSON ([id number]) 1955 M Date Time Provider Department 03/03/24 2:00 PM [facility]EL[facility] NURSE [place] POOL During your visit today, we recorded the following information about you: Pulse Respiration Blood pressure 80/minute 20/minute 95/66 Livier Seay MA 03/03/2024 12:57 PM Signed Patient Identification confirmed: yes. Injection given and documented on AUG per provider order. Livier Seay MA Referring Provider: ZAHRA MAY [[id number]] Allergies As of Date: 03/03/2024 (No Known [...] three times a day with meals. - gzbnsk-khdeozdx-xcwpawx (ZENPEP) 25,000-79,000- 105,000 unit delayed release capsule Take 2 capsules by mouth three times a day with meals. - zptsev-gnololql-oxkegnc (CREON 24) 24,000-76,000 -120,000 unit delayed release [...] *09/10/2023 Visit Notes: >> Livier Seay MA [facility] Mar 03, 2024 12:56 PM Status: Signed Patient Identification confirmed: yes. Injection given and documented on AUG per provider order. Livier Seay MA Prescriptions ordered this encounter Disp Refills Start End CYANOCOBALAMIN (VIT B-12) 1,000 MCG/* 03/03/2024 03/03/2024 Route: INTRAMUSCULA Encounter Status:Closed by LIVIER SEAY on 03/03/[address] [facility] [address] ABD/PEL W IVCONon 024 CT [...] report reviewed and electronically signed by: DANIELLE LOIVA MD on Mar 04 2024 12:05PM EST Thank you for allowing us to participate in the care of your patient. Should there be any questions regarding this interpretation, please call [phone]. If you are unable to reach us at the number above, please feel free to contact [facility] eRadiology at [phone]. [id number] Normal [facility] CT CHEST W IVCONon CT CHEST [...] any questions regarding this interpretation, please call [phone]. If you are unable to reach us at the number above, please feel free to contact [facility] eRadiology at [phone]. [id number] Normal [facility] Cancer Ag19-9 SerPl-aCncon 0 03-03-2024 Cancer Ag 19-9 Qn 18.0 [arb'U]/mL Normal <36.0 Cl [facility] Comment on above: Order Comment: Speci men Type: BLOOD SPECIMENOrdering Facility: [facility] Address: [address] [place] [address] Result Comment: [facility] [...] used interchangeably. Performed By: #### 2 4108-3 ####[facility] LABCLIA [id number] [place] [address] [place] Comprehensive metabolic 2000 panelOrdered By: Olga Cornejo on 03-03-2024 Albumin [Mass/Vol] 2.9 g/dL Low 3.9 - 4.9 g/dL [facility] ALP [Catalytic activity/Vol] 181 U/L High 38 - 113 U/L [facility] ALT [Catalytic activity/Vol] 17 U/L 10 - 54 U/L [facility] Anion gap [Moles/Vol] 7 mmol/L Low 8 - 15 mmol/L [facility] AST [Catalytic activity/Vol] 18 U/L 14 - 40 U/L [facility] Bilirubin [Mass/Vol] 0.4 mg/dL 0.2 - 1 .3 mg/dL [facility] Calcium [Mass/Vol] 8.2 mg/dL Low 8.5 - 10. 2 mg/dL [facility] Chloride [Moles/Vol] 109 mmol/L High 98 - 10 7 mmol/L [facility] CO2 [Moles/Vol] 24 mmol/L 22 - 30 mmol/L [facility] Creatinine [Mass/Vol] 0.62 mg/dL Low 0.73 - 1.22 mg/dL [facility] GFR/1.73 sq M.predicted among non-blacks MDRD (S/P/Bld) [Vol rate/Area] 105 mL/min/{1.73_m2} - PINF [facility] Comment on above: Estimated Glomerular [...] [Mass/Vol] 87 mg/dL 74 - 99 mg/dL [facility] Comment on above: The [place] Diabete [employer] Association (ADA) provides guidance for [...] Standards of Medical Care in Diabetes 2016, [place] [employer]. Diabetes Care. 2016.39(Suppl 1). Interpretation and review of laboratory results Abnormal [facility] Potassium [Moles/Vol] 4.4 mmol/L 3.7 - 5.1 mmol/L [facility] Protein [Mass/Vol] 5.4 g/dL Low 6.3 - 8.0 g/dL [facility] Sodium [Moles/Vol] 140 mmol/L 136 - 144 mmol/L [facility] Urea nitrogen [Mass/Vol] 22 mg/dL 9 - 24 mg/dL [facility] Comprehensive metabolic 2000 panelon 03-03-2024 Albumin [Mass/Vol] 2.9 g/dL Low 3.9-4.9 [facility] Comment on above: Order Comment: Speci men Type: BLOOD SPECIMENOrdering Facility: [facility] Address: [address] [place] [address] Performed By: #### 2 4323-8 ####[facility] LABCLIA [id number] [place] [address] ALP [Catalytic activity/Vol] 181 U/L High 38-113 [facility] Comment on above: Order Comment: Speci men Type: BLOOD SPECIMENOrdering Facility: [facility] Address: [address] [place] [address] Performed By: #### 2 4323-8 ####[facility] LABCLIA [id number] [place] [address] ALT [Catalytic activity/Vol] 17 U/L Normal 10-54 [facility] Comment on above: Order Comment: Speci men Type: BLOOD SPECIMENOrdering Facility: [facility] Address: [address] [place] [address] Performed By: #### 2 4323-8 ####[facility] LABCLIA [id number] [place] [address] Anion gap [Moles/Vol] 7 mmol/L Low 8-15 [facility] Comment on above: Order Comment: Speci men Type: BLOOD SPECIMENOrdering Facility: [facility] Address: [address] [place] [address] Performed By: #### 2 4323-8 ####[facility] LABCLIA [id number] [place] [address] AST [Catalytic activity/Vol] 18 U/L Normal 14-40 [facility] Comment on above: Order Comment: Speci men Type: BLOOD SPECIMENOrdering Facility: [facility] Address: [address] [place] [address] Performed By: #### 2 4323-8 ####[facility] LABCLIA [id number] [place] [address] Bilirubin [Mass/Vol] 0.4 mg/dL Normal 0.2-1.3 [facility] Comment on above: Order Comment: Speci men Type: BLOOD SPECIMENOrdering Facility: [facility] Address: [address] [place] [address] Performed By: #### 2 4323-8 ####[facility] LABCLIA [id number] [place] [address] Calcium [Mass/Vol] 8.2 mg/dL Low 8.5-10.2 [facility] Comment on above: Order Comment: Speci men Type: BLOOD SPECIMENOrdering Facility: [facility] Address: [address] [place] [address] Performed By: #### 2 4323-8 ####[facility] LABCLIA [id number] [place] [address] Chloride [Moles/Vol] 109 mmol/L High 98-107 [facility] Comment on above: Order Comment: Speci men Type: BLOOD SPECIMENOrdering Facility: [facility] Address: [address] [place] [address] Performed By: #### 2 4323-8 ####[facility] LABCLIA [id number] [place] [address] CO2 [Moles/Vol] 24 mmol/L Normal 22-30 [facility] Comment on above: Order Comment: Speci men Type: BLOOD SPECIMENOrdering Facility: [facility] Address: [address] [place], [place] [address] Performed By: #### 2 4323-8 ####[facility] LABCLIA [id number] [place] [address] Creatinine [Mass/Vol] 0.62 mg/dL Low 0.73-1.22 [facility] Comment on above: Order Comment: Speci men Type: BLOOD SPECIMENOrdering Facility: [facility] Address: [address] [place] [address] Performed By: #### 2 4323-8 ####[facility] LABCLIA [id number] [place] [address] Creatinine and Glomerular filtration rate.predicted panel (S/P/Bld) 105 mL/min/1.73m??? Normal >=60 [facility] Comment on above: Order Comment: Speci men Type: BLOOD SPECIMENOrdering Facility: [facility] Address: [address] [place], [place] [address] Result Comment: Megan mated Glomerular Filtration Rate [...] actual GFR. Performed By: #### 2 4323-8 ####[facility] LABCLIA [id number] [place] [address] Glucose [Mass/Vol] 87 mg/dL Normal 74-99 [facility] Comment on above: Order Comment: Frank farhan Type: BLOOD SPECIMENOrdering Facility: [facility] Address: [address] [place], [place] [address] Result Comment: The [place] Diabetes Association (ADA) provides guidance for cutoff [...] Standards of Medical Care in Diabetes 2016, [place] [employer]. Diabetes Care. 2016.39(Suppl 1). Performed By: #### 2 4323-8 ####[facility] LABCLIA [id number] [place] [address] Potassium [Moles/Vol] 4.4 mmol/L Normal 3.7-5.1 [facility] Comment on above: Order Comment: Speci men Type: BLOOD SPECIMENOrdering Facility: [facility] Address: [address] [place] [address] Performed By: #### 2 4323-8 ####[facility] LABCLIA [id number] [place] [address] Protein [Mass/Vol] 5.4 g/dL Low 6.3-8.0 [facility] Comment on above: Order Comment: Speci men Type: BLOOD SPECIMENOrdering Facility: [facility] Address: [address] [place] [address] Performed By: #### 2 4323-8 ####[facility] LABCLIA [id number] [place] [address] Sodium [Moles/Vol] 140 mmol/L Normal 136-144 [facility] Comment on above: Order Comment: Speci men Type: BLOOD SPECIMENOrdering Facility: [facility] Address: [address] [place] [address] Performed By: #### 2 4323-8 ####[facility] LABCLIA [id number] [place] [address] Urea nitrogen [Mass/Vol] 22 mg/dL Normal 9-24 [facility] Comment on above: Order Comment: Speci men Type: BLOOD SPECIMENOrdering Facility: [facility] Address: [address] [place] [address] Performed By: #### 2 4323-8 ####[facility] LABCLIA [id number] [place] [address] Eosinophils/100 WBC Auto (Bl d)on 03-03-2024 Eosinophils/100 WBC (Bld) Automated eosinophil % [facility] Erythrocyte distribution wid th Auto (RBC) [Ratio]on 03-03-2024 Erythrocyte distribution width (RBC) [Ratio] Erythrocyte distribution width [Ratio] by Automated count 11.5-15.0 [facility] Ferritin SerPl-mCncon 2023 Ferritin [Mass/Vol] 647.0 ng/mL High 30.3-565.7 [facility] Comment on above: Order Comment: Speci men Type: BLOOD SPECIMENOrdering Facility: [facility] Address: [address] [place] [address] Performed By: #### 5 0190-8, 2132-02, 2275-09 ####[facility] LABCLIA [id number] [place] [address] [place] Hematocrit Auto (Bld) [Volum e fraction]on 03-03-2024 Hematocrit (Bld) [Volume fraction] Hematocrit [Volume Fraction] of Blood by Automated count Low 39.0-51.0 [facility] Hemoglobin [Mass/volume] in Bloodon 03-03-2024 Hemoglobin (Bld) [Mass/Vol] Hemoglobin [Mass/volume] in Blood Low 13.0-17.0 [facility] Iron and Iron binding capaci ty panelon 03-03-2024 Iron [Mass/Vol] 42 ug/dL Normal 41-186 [facility] Comment on above: Order Comment: Speci men Type: BLOOD SPECIMENOrdering Facility: [facility] Address: [address] [place] [address] Performed By: #### 5 0190-8, 2132-02, 2275-09 ####[facility] LABCLIA [id number] [place] [id number] [place] Iron binding capacity [Mass/Vol] Normal [facility] Comment on above: Order Comment: Speci men Type: BLOOD SPECIMENOrdering Facility: [facility] Address: [address] [place] [address] Result Comment: Unab le to calculate due to hemolysis. Performed By: #### 5 0190-8, 2132-02, 2275-09 ####[facility] LABCLIA [id number] [place] [address] [place] Iron/TIBC [Molar ratio] Normal [facility] Comment on above: Order Comment: Speci men Type: BLOOD SPECIMENOrdering Facility: [facility] Address: [address] [place] [address] Result Comment: Unab le to calculate due to hemolysis. Performed By: #### 5 0190-8, 2132-9, 2275-09 ####[facility] LABCLIA [id number] [place] [address] [place] Iron binding capacity [Mass/ volume] in Serum or Plasmaon 03-03-2024 Iron binding capacity [Mass/Vol] Iron binding capacity [Mass/volume] in Serum or Plasma [facility] Comment on above: Unable to calculate due to hemolysis. Iron saturation [Mass Fracti on] in Serum or Plasmaon 03-03-2024 Iron saturation [Mass fraction] Iron saturation [Mass Fraction] in Serum or Plasma [facility] Comment on above: Unable to calculate due to hemolysis. Laboratory - Chemistry and C hemistry - challengeon 03-03-2024 Albumin [Mass/Vol] 2.9 g/dL Low 3.9-4.9 [facility] ALP [Catalytic activity/Vol] 181 U/L High 38-113 [facility] ALT [Catalytic activity/Vol] 17 U/L 10-54 [facility] AST [Catalytic activity/Vol] 18 U/L 14-40 [facility] Bilirubin [Mass/Vol] 0.4 mg/dL 0.2-1.3 [facility] Calcium [Mass/Vol] 8.2 mg/dL Low 8.5-10.2 [facility] Chloride [Moles/Vol] 109 mmol/L High 98-107 [facility] CO2 [Moles/Vol] 24 mmol/L 22-30 [facility] Cobalamin (Vitamin B12) [Mass/Vol] 979 pg/mL 232-1245 [facility] Creatinine [Mass/Vol] 0.62 mg/dL Low 0.73-1.22 [facility] Ferritin [Mass/Vol] 647.0 ng/mL High 30.3-565.7 [facility] Glucose [Mass/Vol] 87 mg/dL 74-99 [facility] Comment on above: The [place] Diabete s Association (ADA) provides guidance for [...] Standards of Medical Care in Diabetes 2016, [place] [employer]. Diabetes Care. 2016.39(Suppl 1). Iron [Mass/Vol] 42 ug/dL 41-186 [facility] Potassium [Moles/Vol] 4.4 mmol/L 3.7-5.1 [facility] Sodium [Moles/Vol] 140 mmol/L 136-144 [facility] Urea nitrogen [Mass/Vol] 22 mg/dL 9-24 [facility] Laboratory - Hematology and Cell countson 03-03-2024 Eosinophils (Bld) [#/Vol] 0.09 10*3/uL <0.46 [facility] Immature granulocytes/100 WBC (Bld) 0.3 % [facility] Leukocytes [#/volume] correc missael for nucleated erythrocytes in Blood by Automated counon 03-03-2024 WBC corrected for nucl RBC Auto (Bld) [#/Vol] Leukocytes [#/volume] corrected for nucleated erythrocytes in Blood by Automated coun Low 3.70-11.00 [facility] Lymphocytes Auto (Bld) [#/Vo l]on 03-03-2024 Lymphocytes (Bld) [#/Vol] Lymphocytes [#/volume] in Blood by Automated count Low 1.00-4.00 [facility] Lymphocytes/100 WBC Auto (Bl d)on 03-03-2024 Lymphocytes/100 WBC (Bld) Lymphocytes/100 leukocytes in Blood by Automated count [facility] MCH Auto (RBC) [Entitic mass ]on 03-03-2024 MCH (RBC) [Entitic mass] MCH [Entitic mass] by Automated count High 26.0-34.0 [facility] MCHC Auto (RBC) [Mass/Vol]on 03-03-2024 MCHC (RBC) [Mass/Vol] MCHC [Mass/volume] by Automated count 30.5-36.0 [facility] MCV Auto (RBC) [Entitic vol] on 03-03-2024 MCV (RBC) [Entitic vol] MCV [Entitic volume] by Automated count High 80.0-100.0 [facility] Monocytes Auto (Bld) [#/Vol] on 03-03-2024 Monocytes (Bld) [#/Vol] Automated blood monocyte count <0.87 [facility] Monocytes/100 WBC Auto (Bld) on 03-03-2024 Monocytes/100 WBC (Bld) Automated monocyte % [facility] Neutrophils Auto (Bld) [#/Vo l]on 03-03-2024 Neutrophils (Bld) [#/Vol] Neutrophils [#/volume] in Blood by Automated count 1.45-7.50 [facility] Neutrophils/100 WBC Auto (Bl d)on 03-03-2024 Neutrophils/100 WBC (Bld) Automated neutrophil % [facility] No Panel Informationon 03-03 Estimated GFR (CKD-EPI) 105 mL/min/1.73m??? >=60 [facility] Comment on above: Estimated Glomerular Filtration [...] Immature Granulocyte # (Auto) <0.03 k/uL <0.10 [facility] Radiology Study observation (narrative) [facility] Nucleated RBC Auto (Bld) [#/ Vol]on 03-03-2024 Nucleated RBC (Bld) [#/Vol] Nucleated erythrocytes [#/volume] in Blood by Automated count <0.01 [facility] Nucleated erythrocytes [Pres ence] in Blood by Automated counton 03-03-2024 Nucleated RBC Auto Ql (Bld) Nucleated erythrocytes [Presence] in Blood by Automated count [facility] Platelet mean volume Auto (B ld) [Entitic vol]on 03-03-2024 Platelet mean volume (Bld) [Entitic vol] Platelet mean volume [Entitic volume] in Blood by Automated count Low 9.0-12.7 [facility] Platelets Auto (Bld) [#/Vol] on 03-03-2024 Platelets (Bld) [#/Vol] Platelets [#/volume] in Blood by Automated count 150-400 [facility] Protein [Mass/volume] in Ser um or Plasmaon 03-03-2024 Protein [Mass/Vol] Protein [Mass/volume ] in Serum or Plasma Low 6.3-8.0 [facility] RBC Auto (Bld) [#/Vol]on RBC (Bld) [#/Vol] Erythrocytes [#/volu me] in Blood by Automated count Low 4.20-6.00 [facility] Serum or plasma anion gap de terminationon 03-03-2024 Anion gap [Moles/Vol] Serum or plasma an ion gap determination Low 8-15 [facility] Serum or plasma cancer antig en 19-9 measurement (units/volume)on 03-03-2024 Cancer Ag 19-9 Qn Serum or plasma canc er antigen 19-9 measurement (units/volume) <36.0 [facility] Comment on above: Cancer antigen 19-9 [...] (Vitamin B12) [Mass/Vol] 979 pg/mL Normal 232-1245 [facility] Comment on above: Order Comment: Speci men Type: BLOOD SPECIMENOrdering Facility: [facility] Address: [address] [place] [address] Performed By: #### 5 0190-8, 2132-9, 2276-4 ####[facility] LABCLYOSSI [id number] [place] [address] [place] CNNURSEon 01-29-2024 CNNURSE Nurse Visit (HEMASA) ROCIO JACKSON ([id number]) 1955 M Date Time Provider Department 01/29/24 2:30 PM MELANI NURSE [place] POOL During your visit today, we recorded the following information about you: Temperature Pulse Respiration Blood pressure 97.7 degrees 108/minute 16/minute 99/65 Lillian Tucker MA 01/29/2024 3:18 PM Signed Patient Identification confirmed: yes. Injection given and documented on AUG per provider order. Lillian Tucker MA Referring Provider: ZAHRA MAY [[id number]] Allergies As of Date: 01/29/2024 (No Known [...] three times a day with meals. - nzjdqc-qvaijeap-wzoebkl (ZENPEP) 25,000-79,000- 105,000 unit delayed release capsule Take 2 capsules by mouth three times a day with meals. - gvnqpk-fahyopkf-lfjxqsm (CREON 24) 24,000-76,000 -120,000 unit delayed release [...] Encounter Status:Closed by LILLIAN TUCKER on 01/29/24 [facility] 01-08-2024 [facility] Nurse Visit (HEMASA) ROCIO JACKSON ([id number]) 1955 M Date Time Provider Department 01/08/24 3:15 PM MELANI NURSE [place] POOL During your visit today, we recorded the following information about you: Temperature Pulse Respiration Blood pressure 97.6 degrees 88/minute 16/minute 101/68 Lillian Tucker MA 01/08/2024 3:26 PM Signed Patient Identification confirmed: yes. Injection given and documented on AUG per provider order. Lillian Tucker MA Referring Provider: ZAHRA MAY [[id number]] Allergies As of Date: 01/08/2024 (No Known [...] three times a day with meals. - yhflws-nrioetvk-tfdpkwz (ZENPEP) 25,000-79,000- 105,000 unit delayed release capsule Take 2 capsules by mouth three times a day with meals. - swodic-bhsqnmbf-tudyqua (CREON 24) 24,000-76,000 -120,000 unit delayed release [...] Encounter Status:Closed [facility] ([facility]ASA) ROCIO JACKSON ([id number]) 1955 Date Time Provider Department 01/04/24 ZAHRA [...] Fully Assessed Reason for Visit: Lab Orders [3108] Prescriptions as of 01/04/2024 - iv contrast [...] three times a day with meals. - frxrqg-nowajxpz-eidzqvw (ZENPEP) 25,000-79,000- 105,000 unit delayed release capsule Take 2 capsules by mouth three times a day with meals. - cmkmtp-hxresuhd-fxcpgaq (CREON 24) 24,000-76,000 -120,000 unit delayed release [...] Status:Closed by ZAHRA MAY on 01/04/24 Normal [facility] Basophils Auto (Bld) [#/Vol] on 12-03-2023 Basophils (Bld) [#/Vol] 10*3/uL <0.11 [facility] Basophils/100 WBC Auto (Bld) on 12-03-2023 Basophils/100 WBC (Bld) 0.3 % [facility] Blood manual differential co mment interpretation narrativeon 12-03-2023 Manual differential comment Evgeny (Bld) [Interp] Auto [facility] CBC W Auto Differential pane l (Bld)on 12-03-2023 Basophils (Bld) [#/Vol] 10*3/uL Normal <0.11 [facility] Comment on above: Order Comment: Speci men Type: BLOOD SPECIMENOrdering Facility: [facility] Address: [address] [place] [address] Performed By: #### 5 7021-8 ####[facility] LABCLIA [id number] [place] [address] Basophils/100 WBC (Bld) 0.3 % Normal [facility] Comment on above: Order Comment: Speci men Type: BLOOD SPECIMENOrdering Facility: [facility] Address: [address] [place] [address] Performed By: #### 5 7021-8 ####[facility] LABCLIA [id number] [place] [address] Differential cell count method Nom (Bld) Auto Normal [facility] Comment on above: Order Comment: Speci men Type: BLOOD SPECIMENOrdering Facility: [facility] Address: [address] [place] [address] Performed By: #### 5 7021-8 ####[facility] LABCLIA [id number] [place] [address] Eosinophils (Bld) [#/Vol] 0.22 10*3/uL Normal <0.46 [facility] Comment on above: Order Comment: Speci men Type: BLOOD SPECIMENOrdering Facility: [facility] Address: [address] [place] [address] Performed By: #### 5 7021-8 ####[facility] LABCLIA [id number] [place] [address] Eosinophils/100 WBC (Bld) 3.6 % Normal [facility] Comment on above: Order Comment: Speci men Type: BLOOD SPECIMENOrdering Facility: [facility] Address: [address] [place] [address] Performed By: #### 5 7021-8 ####[facility] LABCLIA [id number] [place] [address] Erythrocyte distribution width (RBC) [Ratio] 13.4 % Normal 11.5-15.0 [facility] Comment on above: Order Comment: Speci men Type: BLOOD SPECIMENOrdering Facility: [facility] Address: [address] [place] [address] Performed By: #### 5 7021-8 ####[facility] LABCLIA [id number] [place] [address] Hematocrit (Bld) [Volume fraction] 34.0 % Low 39.0-51.0 [facility] Comment on above: Order Comment: Speci men Type: BLOOD SPECIMENOrdering Facility: [facility] Address: [address] [place] [address] Performed By: #### 5 7021-8 ####[facility] LABIA [id number] [place] [address] Hemoglobin (Bld) [Mass/Vol] 10.9 g/dL Low 13.0-17.0 [facility] Comment on above: Order Comment: Speci men Type: BLOOD SPECIMENOrdering Facility: [facility] Address: [address] [place] [address] Performed By: #### 5 7021-8 ####[facility] LABCLIA [id number] [place] [address] Immature granulocytes (Bld) [#/Vol] 0.06 10*3/uL Normal <0.10 [facility] Comment on above: Order Comment: Speci men Type: BLOOD SPECIMENOrdering Facility: [facility] Address: [address] [place] [address] Performed By: #### 5 7021-8 ####[facility] LABCLIA [id number] [place] [address] Immature granulocytes/100 WBC (Bld) 1.0 % Normal [facility] Comment on above: Order Comment: Speci men Type: BLOOD SPECIMENOrdering Facility: [facility] Address: [address] [place] [address] Performed By: #### 5 7021-8 ####[facility] LABCLIA [id number] [place] [address] Lymphocytes (Bld) [#/Vol] 1.08 10*3/uL Normal 1.00-4.00 [facility] Comment on above: Order Comment: Speci men Type: BLOOD SPECIMENOrdering Facility: [facility] Address: [address] [place] [address] Performed By: #### 5 7021-8 ####[facility] LABCLIA [id number] [place] [address] Lymphocytes/100 WBC (Bld) 17.8 % Normal [facility] Comment on above: Order Comment: Speci men Type: BLOOD SPECIMENOrdering Facility: [facility] Address: [address] [place] [address] Performed By: #### 5 7021-8 ####[facility] LABCLIA [id number] [place] [address] MCH (RBC) [Entitic mass] 32.3 pg Normal 26.0-34.0 [facility] Comment on above: Order Comment: Speci men Type: BLOOD SPECIMENOrdering Facility: [facility] Address: [address] [place] [address] Performed By: #### 5 7021-8 ####[facility] LABCLIA [id number] [place] [address] MCHC (RBC) [Mass/Vol] 32.1 g/dL Normal 30.5-36.0 [facility] Comment on above: Order Comment: Speci men Type: BLOOD SPECIMENOrdering Facility: [facility] Address: [address] [place] [address] Performed By: #### 5 7021-8 ####[facility] LABCLIA [id number] [place] [address] MCV (RBC) [Entitic vol] 100.9 fL High 80.0-100.0 [facility] Comment on above: Order Comment: Speci men Type: BLOOD SPECIMENOrdering Facility: [facility] Address: [address] [place] [address] Performed By: #### 5 7021-8 ####[facility] LABCLIA [id number] [place] [address] Monocytes (Bld) [#/Vol] 0.51 10*3/uL Normal <0.87 [facility] Comment on above: Order Comment: Speci men Type: BLOOD SPECIMENOrdering Facility: [facility] Address: [address] [place] [address] Performed By: #### 5 7021-8 ####[facility] LABCLIA [id number] [place] [address] Monocytes/100 WBC (Bld) 8.4 % Normal [facility] Comment on above: Order Comment: Speci men Type: BLOOD SPECIMENOrdering Facility: [facility] Address: [address] [place] [address] Performed By: #### 5 7021-8 ####[facility] LABCLIA [id number] [place] [address] Neutrophils (Bld) [#/Vol] 4.19 10*3/uL Normal 1.45-7.50 [facility] Comment on above: Order Comment: Speci men Type: BLOOD SPECIMENOrdering Facility: [facility] Address: [address] [place] [address] Performed By: #### 5 7021-8 ####[facility] LABCLIA [id number] [place] [address] Neutrophils/100 WBC (Bld) 68.9 % Normal [facility] Comment on above: Order Comment: Speci men Type: BLOOD SPECIMENOrdering Facility: [facility] Address: [address] [place] [address] Performed By: #### 5 7021-8 ####[facility] LABCLIA [id number] [place] [address] Nucleated RBC (Bld) [#/Vol] 10*3/uL Normal <0.01 [facility] Comment on above: Order Comment: Speci men Type: BLOOD SPECIMENOrdering Facility: [facility] Address: [address] [place] [address] Performed By: #### 5 7021-8 ####[facility] LABCLIA [id number] [place] [address] Nucleated RBC/100 WBC (Bld) [Ratio] 0.0 /100 WBC Normal [facility] Comment on above: Order Comment: Speci men Type: BLOOD SPECIMENOrdering Facility: [facility] Address: [address] [place] [address] Performed By: #### 5 7021-8 ####[facility] LABIA [id number] [place] [address] Platelet mean volume (Bld) [Entitic vol] 9.0 fL Normal 9.0-12.7 [facility] Comment on above: Order Comment: Speci men Type: BLOOD SPECIMENOrdering Facility: [facility] Address: [address] [place] [address] Performed By: #### 5 7021-8 ####[facility] LABIA [id number] [place] [address] Platelets (Bld) [#/Vol] 361 10*3/uL Normal 150-400 [facility] Comment on above: Order Comment: Speci men Type: BLOOD SPECIMENOrdering Facility: [facility] Address: [address] [place] [address] Performed By: #### 5 7021-8 ####[facility] LABIA [id number] [place] [address] RBC (Bld) [#/Vol] 3.37 10*6/uL Low 4.20-6.00 [facility] Comment on above: Order Comment: Speci men Type: BLOOD SPECIMENOrdering Facility: [facility] Address: [address] [place] [address] Performed By: #### 5 7021-8 ####[facility] LABCLIA [id number] [place] [address] WBC (Bld) [#/Vol] 6.08 10*3/uL Normal 3.70-11.00 [facility] Comment on above: Order Comment: Speci men Type: BLOOD SPECIMENOrdering Facility: [facility] Address: [facility] [place] [address] Performed By: #### 5 7021-8 ####[facility] LABCLIA [id number] [place] [address] CNNURSEon 12-03-2023 CNNURSE Nurse Visit (HEMASA) ROCIO JACKSON ([id number]) 1955 M Date Time Provider Department 12/03/23 3:15 PM MELANI NURSE [place] POOL During your visit today, we recorded the following information about you: Lillian Tucker MA 12/03/2023 3:35 PM Signed Patient Identification confirmed: yes. Injection given and documented on AUG per provider order. 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 - bbmqxi-dbbxhimw-vpzqaqr (ZENPEP) 25,000-79,000- 105,000 unit delayed release capsule Take 2 capsules by mouth three times a day with meals. - wbyest-xocxoekk-tunjhye (CREON 24) 24,000-76,000 -120,000 unit delayed release [...] *09/10/2023 Visit Notes: >> Lillian Tucker MA [facility] Dec 03, 2023 3:34 PM Status: Signed Patient Identification confirmed: yes. Injection given and documented on AUG per provider order. Lillian Tucker MA Prescriptions ordered this encounter Disp Refills Start End CYANOCOBALAMIN (VIT B-12) 1,000 MCG/* 12/03/2023 12/03/2023 Route: INTRAMUSCULA Encounter Status:Closed by LILLIAN TUCKER on 12/03/23 [facility] Office ([facility]) ROCIO JACKSON ([id number]) 1955 M Date Time Provider Department 12/03/23 3:00 PM ZAHRA MAY During your visit today, we recorded the following information about you: Temperature Pulse Respiration Blood pressure 97.1 degrees 96/minute 18/minute 102/66 Zahra May MD 12/05/2023 3:00 PM Signed NAME: Rocio Jackson CLINIC NO.: [id number] DATE OF SERVICE: December 03, 2023 (Iftikhar) [...] Invasive poorly (more content not included)... Normal [facility] CNPNon 12-03-2023 CNPN Telephone (NCCAP) ROCIO JACKSON ([id number]) 1955 Date Time Provider Department 12/03/23 ZAHRA MAY [facility] During your visit today, we recorded the [...] three times a day with meals. - oqjjvk-gadczmzh-yoslnyx (ZENPEP) 25,000-79,000- 105,000 unit delayed release capsule Take 2 capsules by mouth three times a day with meals. - iggtsp-qfhhyehp-nygonko (CREON 24) 24,000-76,000 -120,000 unit delayed release [...] Status:Closed by CASSANDRA HERNANDEZ on 12/07/23 Normal [facility] Comprehensive metabolic 2000 panelon 12-03-2023 Albumin [Mass/Vol] 3.6 g/dL Low 3.9-4.9 [facility] Comment on above: Order Comment: Speci men Type: BLOOD SPECIMENOrdering Facility: [facility] Address: [address] [place] [address] Performed By: #### 2 4323-8 ####[facility] LABCLIA [id number] [place] [address] ALP [Catalytic activity/Vol] 158 U/L High 38-113 [facility] Comment on above: Order Comment: Speci men Type: BLOOD SPECIMENOrdering Facility: [facility] Address: [address] [place] [address] Performed By: #### 2 4323-8 ####[facility] LABCLIA [id number] [place] [address] ALT [Catalytic activity/Vol] 13 U/L Normal 10-54 [facility] Comment on above: Order Comment: Speci men Type: BLOOD SPECIMENOrdering Facility: [facility] Address: [address] [place] [address] Performed By: #### 2 4323-8 ####[facility] LABCLIA [id number] [place] [address] Anion gap [Moles/Vol] 10 mmol/L Normal 8-15 [facility] Comment on above: Order Comment: Speci men Type: BLOOD SPECIMENOrdering Facility: [facility] Address: [address] [place] [address] Performed By: #### 2 4323-8 ####[facility] LABCLIA [id number] [place] [address] AST [Catalytic activity/Vol] 13 U/L Low 14-40 [facility] Comment on above: Order Comment: Speci men Type: BLOOD SPECIMENOrdering Facility: [facility] Address: [address] [place] [address] Performed By: #### 2 4323-8 ####[facility] LABCLIA [id number] [place] [address] Bilirubin [Mass/Vol] 0.2 mg/dL Normal 0.2-1.3 [facility] Comment on above: Order Comment: Speci men Type: BLOOD SPECIMENOrdering Facility: [facility] Address: [address] [place] [address] Performed By: #### 2 4323-8 ####[facility] LABCLIA [id number] [place] [address] Calcium [Mass/Vol] 9.5 mg/dL Normal 8.5-10.2 [facility] Comment on above: Order Comment: Speci men Type: BLOOD SPECIMENOrdering Facility: [facility] Address: [address] [place] [address] Performed By: #### 2 4323-8 ####[facility] LABCLIA [id number] [place] [address] Chloride [Moles/Vol] 108 mmol/L High 98-107 [facility] Comment on above: Order Comment: Speci men Type: BLOOD SPECIMENOrdering Facility: [facility] Address: [address] [place] [address] Performed By: #### 2 4323-8 ####[facility] LABCLIA [id number] [place] [address] CO2 [Moles/Vol] 19 mmol/L Low 22-30 [facility] Comment on above: Order Comment: Speci men Type: BLOOD SPECIMENOrdering Facility: [facility] Address: [address] [place] [id number] Performed By: #### 2 4323-8 ####[facility] LABCLIA [id number] [place] [address] Creatinine [Mass/Vol] 0.78 mg/dL Normal 0.73-1.22 [facility] Comment on above: Order Comment: Speci men Type: BLOOD SPECIMENOrdering Facility: [facility] Address: [address] [place] [address] Performed By: #### 2 4323-8 ####[facility] LABCLIA [id number] [place] [address] Creatinine and Glomerular filtration rate.predicted panel (S/P/Bld) 98 mL/min/1.73m??? Normal >=60 [facility] Comment on above: Order Comment: Speci men Type: BLOOD SPECIMENOrdering Facility: [facility] Address: [address] [place] [address] Result Comment: Megan mated Glomerular Filtration Rate [...] actual GFR. Performed By: #### 2 4323-8 ####[facility] LABIA [id number] [place] [address] Glucose [Mass/Vol] 103 mg/dL High 74-99 [facility] Comment on above: Order Comment: Frank real Type: BLOOD SPECIMENOrdering Facility: [facility] Address: [address] [place], [place] [address] Result Comment: The [place] [employer] (ADA) provides guidance for cutoff [...] Standards of Medical Care in Diabetes 2016, [place] [employer]. Diabetes Care. 2016.39(Suppl 1). Performed By: #### 2 4323-8 ####[facility] LABCLIA [id number] [place] [address] Potassium [Moles/Vol] 4.5 mmol/L Normal 3.7-5.1 [facility] Comment on above: Order Comment: Speci men Type: BLOOD SPECIMENOrdering Facility: [facility] Address: [address] [place] [address] Performed By: #### 2 4323-8 ####[facility] LABCLIA [id number] [place] [address] Protein [Mass/Vol] 7.0 g/dL Normal 6.3-8.0 [facility] Comment on above: Order Comment: Speci men Type: BLOOD SPECIMENOrdering Facility: [facility] Address: [address] [place] [address] Performed By: #### 2 4323-8 ####[facility] LABCLIA [id number] [place] [address] Sodium [Moles/Vol] 137 mmol/L Normal 136-144 [facility] Comment on above: Order Comment: Speci men Type: BLOOD SPECIMENOrdering Facility: [facility] Address: [address] [place] [address] Performed By: #### 2 4323-8 ####[facility] LABCLIA [id number] [place] [address] Urea nitrogen [Mass/Vol] 25 mg/dL High 9-24 [facility] Comment on above: Order Comment: Speci men Type: BLOOD SPECIMENOrdering Facility: [facility] Address: [address] [place], [place] [id number] Performed By: #### 2 4323-8 ####[facility] LABCLIA [id number] [place] [address] Eosinophils/100 WBC Auto (Bl d)on 12-03-2023 Eosinophils/100 WBC (Bld) 3.6 % [facility] Erythrocyte distribution wid th Auto (RBC) [Ratio]on 12-03-2023 Erythrocyte distribution width (RBC) [Ratio] 13.4 % 11.5-15.0 [facility] Ferritin SerPl-mCncon 2023 Ferritin [Mass/Vol] 667.0 ng/mL High 30.3-565.7 [facility] Comment on above: Order Comment: Speci men Type: BLOOD SPECIMENOrdering Facility: [facility] Address: [address] [place] [address] Performed By: #### 5 0190-8, 2276-4, 228-8, 9 ####[facility] LABCLIA [id number] [place] [id number] [place] Folate SerPl-mCncon 12-03-19 Folate [Mass/Vol] 17.4 ng/mL Normal >4.7 [facility] Comment on above: Order Comment: Speci men Type: BLOOD SPECIMENOrdering Facility: [facility] Address: [address] [place] [address] Performed By: #### 5 0190-8, 2276-4, 2284-8, 9 ####[facility] LABCLIA [id number] [place] [id number] [place] [place] Hematocrit Auto (Bld) [Volum e fraction]on 12-03-2023 Hematocrit (Bld) [Volume fraction] 34.0 % Low 39.0-51.0 [facility] Hemoglobin [Mass/volume] in Bloodon 12-03-2023 Hemoglobin (Bld) [Mass/Vol] 10.9 g/dL Low 13.0-17.0 [facility] Iron and Iron binding capaci ty panelon 12-03-2023 Iron [Mass/Vol] 34 ug/dL Low 41-186 [facility] Comment on above: Order Comment: Speci men Type: BLOOD SPECIMENOrdering Facility: [facility] Address: [address] [place] [address] Performed By: #### 5 0190-8, 6-4, 8, 2132-02 ####[facility] LABCLIA [id number] [place] [address] [place] Iron binding capacity [Mass/Vol] 194 ug/dL Low 232-386 [facility] Comment on above: Order Comment: Speci men Type: BLOOD SPECIMENOrdering Facility: [facility] Address: [address] [place] [address] Performed By: #### 5 0190-8, 2275-4, 8, 2132-02 ####[facility] LABCLIA [id number] [place] [address] [place] Iron/TIBC [Molar ratio] 17.5 % Normal 15.0-57.0 [facility] Comment on above: Order Comment: Speci men Type: BLOOD SPECIMENOrdering Facility: [facility] Address: [address] [place] [address] Performed By: #### 5 0190-8, 2275-4, 8, 2132-02 ####[facility] LABCLIA [id number] [place] [id number] [place] Iron binding capacity [Mass/ volume] in Serum or Plasmaon 12-03-2023 Iron binding capacity [Mass/Vol] 194 ug/dL Low 232-386 [facility] Iron saturation [Mass Fracti on] in Serum or Plasmaon 12-03-2023 Iron saturation [Mass fraction] 17.5 % 15.0-57.0 [facility] Laboratory - Chemistry and C hemistry - challengeon 12-03-2023 Albumin [Mass/Vol] 3.6 g/dL Low 3.9-4.9 [facility] ALP [Catalytic activity/Vol] 158 U/L High 38-113 [facility] ALT [Catalytic activity/Vol] 13 U/L 10-54 [facility] AST [Catalytic activity/Vol] 13 U/L Low 14-40 [facility] Bilirubin [Mass/Vol] 0.2 mg/dL 0.2-1.3 [facility] Calcium [Mass/Vol] 9.5 mg/dL 8.5-10.2 [facility] Chloride [Moles/Vol] 108 mmol/L High 98-107 [facility] CO2 [Moles/Vol] 19 mmol/L Low 22-30 [facility] Cobalamin (Vitamin B12) [Mass/Vol] 1473 pg/mL High 232-1245 [facility] Creatinine [Mass/Vol] 0.78 mg/dL 0.73-1.22 [facility] Ferritin [Mass/Vol] 667.0 ng/mL High 30.3-565.7 [facility] Glucose [Mass/Vol] 103 mg/dL High 74-99 [facility] Comment on above: The [place] Diab[employer] Association (ADA) provides guidance for [...] Standards of Medical Care in Diabetes 2016, [place] [employer]. Diabetes Care. 2016.39(Suppl 1). Iron [Mass/Vol] 34 ug/dL Low 41-186 [facility] Potassium [Moles/Vol] 4.5 mmol/L 3.7-5.1 [facility] Sodium [Moles/Vol] 137 mmol/L 136-144 [facility] Urea nitrogen [Mass/Vol] 25 mg/dL High 9-24 [facility] - Hematology and Cell countson 12-03-2023 Eosinophils (Bld) [#/Vol] 0.22 10*3/uL <0.46 [facility] Immature granulocytes (Bld) [#/Vol] 0.06 10*3/uL <0.10 [facility] Immature granulocytes/100 WBC (Bld) 1.0 % [facility] Leukocytes [#/volume] correc msisael for nucleated erythrocytes in Blood by Automated counon 12-03-2023 WBC corrected for nucl RBC Auto (Bld) [#/Vol] 6.08 k/uL 3.70-11.00 [facility] Lymphocytes Auto (Bld) [#/Vo l]on 12-03-2023 Lymphocytes (Bld) [#/Vol] 1.08 10*3/uL 1.00-4.00 [facility] Lymphocytes/100 WBC Auto (Bl d)on 12-03-2023 Lymphocytes/100 WBC (Bld) 17.8 % [facility] MCH Auto (RBC) [Entitic mass ]on 12-03-2023 MCH (RBC) [Entitic mass] 32.3 pg 26.0-34.0 [facility] MCHC Auto (RBC) [Mass/Vol]on 12-03-2023 MCHC (RBC) [Mass/Vol] 32.1 g/dL 30.5-36.0 [facility] MCV Auto (RBC) [Entitic vol] on 12-03-2023 MCV (RBC) [Entitic vol] 100.9 fL High 80.0-100.0 [facility] Monocytes Auto (Bld) [#/Vol] on 12-03-2023 Monocytes (Bld) [#/Vol] 0.51 10*3/uL <0.87 [facility] Monocytes/100 WBC Auto (Bld) on 12-03-2023 Monocytes/100 WBC (Bld) 8.4 % [facility] Neutrophils Auto (Bld) [#/Vo l]on 12-03-2023 Neutrophils (Bld) [#/Vol] 4.19 10*3/uL 1.45-7.50 [facility] Neutrophils/100 WBC Auto (Bl d)on 12-03-2023 Neutrophils/100 WBC (Bld) 68.9 % [facility] No Panel Informationon 12-02 Estimated GFR (CKD-EPI) 98 mL/min/1.73m??? >=60 [facility] Comment on above: Estimated Glomerular Filtration [...] reflect actual GFR. Folate 17.4 ng/mL >4.7 [facility] Nucleated RBC Auto (Bld) [#/ Vol]on 12-03-2023 Nucleated RBC (Bld) [#/Vol] 10*3/uL <0.01 [facility] Nucleated erythrocytes [Pres ence] in Blood by Automated counton 12-03-2023 Nucleated RBC Auto Ql (Bld) 0.0 /100{WBC} [facility] Platelet mean volume Auto (B ld) [Entitic vol]on 12-03-2023 Platelet mean volume (Bld) [Entitic vol] 9.0 fL 9.0-12.7 [facility] Platelets Auto (Bld) [#/Vol] on 12-03-2023 Platelets (Bld) [#/Vol] 361 10*3/uL 150-400 [facility] Protein [Mass/volume] in Ser um or Plasmaon 12-03-2023 Protein [Mass/Vol] 7.0 g/dL 6.3-8.0 [facility] RBC Auto (Bld) [#/Vol]on RBC (Bld) [#/Vol] 3.37 10*6/uL Low 4.20-6.00 [facility] Serum or plasma anion gap de terminationon 12-03-2023 Anion gap [Moles/Vol] 10 mmol/L 8-15 [facility] Vit B12 SerPl-mCncon 024 Cobalamin (Vitamin B12) [Mass/Vol] 1473 pg/mL High 232-1245 [facility] Comment on above: Order Comment: Speci men Type: BLOOD SPECIMENOrdering Facility: [facility] Address: [address] [place] [address] Performed By: #### 5 0190-8, 2276-4, 2284-8, 2132-9 ####[facility] LABCLIA [id number] [id number] CNNURSEon 11-05-2023 CNNURSE Nurse Visit (HEMASA) ROCIO JACKSON ([id number]) 1955 M Date Time Provider Department 11/05/23 2:15 PM MELANI NURSE ZELLAEM HART HEMCANDIE During your visit today, we recorded the following information about you: Temperature Pulse Respiration Blood pressure 97.3 degrees 95/minute 18/minute 100/64 Lviier Seay MA 11/05/2023 2:27 PM Signed Patient Identification confirmed: yes. Injection given and documented on AUG per provider order. Livier Seay MA Referring Provider: ZAHRA MAY [[id number]] Allergies As of Date: 11/05/2023 (No Known [...] three times a day with meals. - fkcser-vempyfpd-hjhvzrp (ZENPEP) 25,000-79,000- 105,000 unit delayed release capsule Take 2 capsules by mouth three times a day with meals. - tlieyo-fololvkf-ndtjngu (CREON 24) 24,000-76,000 -120,000 unit delayed release [...] Encounter Status:Closed by LIVIER SEAY on 11/05/23 [facility] CNNURSEon 10-08-2023 [facility] Nurse Visit (HEMASA) ROCIO JACKSON ([id number]) 1955 M Date Time Provider Department 10/08/23 2:30 PM MELANI NURSE ZELALEM POOL During your visit today, we recorded the following information about you: Temperature Pulse Respiration Blood pressure 97.4 degrees 76/minute 18/minute 95/53 Livier Seay MA 10/08/2023 3:03 PM Signed Patient Identification confirmed: yes. Injection given and documented on AUG per provider order. Livier Seay MA Referring Provider: ZAHRA MAY [[id number]] Allergies As of Date: 10/08/2023 (No Known [...] three times a day with meals. - fqgjuz-praypoew-yxphwqy (ZENPEP) 25,000-79,000- 105,000 unit delayed release capsule Take 2 capsules by mouth three times a day with meals. - kfledz-oiowwzbj-ljyuycw (CREON 24) 24,000-76,000 -120,000 unit delayed release [...] *09/10/2023 Visit Notes: >> Livier Seay MA [facility] Oct 08, 2023 3:02 PM Status: Signed Patient Identification confirmed: yes. Injection given and documented on AUG per provider order. Livier Seay MA Prescriptions ordered this encounter Disp Refills Start End CYANOCOBALAMIN (VIT B-12) 1,000 MCG/* 10/08/2023 10/08/2023 Route: INTRAMUSCULA Encounter Status:Closed by LIVIER SEAY on 10/08/23 [facility] (HEMTSA) ROCIO JACKSON ([id number]) 1955 M Date Time Provider Department 09/24/23 [...] Fully Assessed Reason for Visit: Benefits Investigation [5434] Prescriptions as of 09/24/2023 - gbxaum-hqvmugij-rqjsuwo (ZENPEP) 25,000-79,000- 105,000 unit delayed release capsule Take 2 capsules by mouth three times a day with meals. - metoclopramide HCl (REGLAN) 10 mg tablet Take 1 tablet by mouth three times a day with meals. - avmcwl-qlnelawx-pkobmig (CREON 24) 24,000-76,000 -120,000 unit delayed release [...] Status:Closed by FER HAGEN on 09/24/23 Normal [facility] CNNURSEon 09-10-2023 CNNURSE Nurse Visit (HEMASA) ROCIO JACKSON ([id number]) 1955 M Date Time Provider Department 09/10/23 2:30 PM MELANI NURSE ZELALEM POOL During your visit today, we recorded the following information about you: Livier Seay 09/10/2023 2:32 PM Signed Patient Identification confirmed: yes. Injection given and documented on AUG per provider order. 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 - metoclopramide HCl (REGLAN) 10 mg tablet Take 1 tablet by mouth three times a day with meals. - ozbuub-ssrqtved-tjqdcds (CREON 24) 24,000-76,000 -120,000 unit delayed release [...] Encounter Status:Closed by LIVIER SEAY on 09/10/23 [facility] CNOVSPon 09-10-2023 CNOVSP Visit (SP) Office (H EMASA) ROCIO JACKSON ([id number]) 1955 M Date Time Provider Department 09/10/23 [...] PM Signed NAME: Rocio Jackson CLINIC NO.: [id number] DATE OF SERVICE: September 10, 2023 (Iftikhar) [...] less conspicuo (more content not included)... [facility] ROCIO JACKSON ([id number]) 1955 M Date Time Provider Department 09/10/23 IMELDA REYNOLDS During your visit today, we recorded the following information about you: Imelda Reynolds johnathan 09/10/2023 9:30 AM Signed Approved for free Creon until 06/28/2024. Patient should receive shipment in 5-7 business days. Artur Reynolds PharmD, BCOP Allergies As of Date: 09/10/2023 (No Known Allergies) Date Reviewed: 06/23/2023 Reviewed by: Rola Gordon APRN.SPEECH TEACHER - Fully Assessed Reason for Visit: Medication Authorization [1699] Prescriptions as of 09/10/2023 - fhtllo-ljzilogj-xtwtlsu (ZENPEP) 25,000-79,000- 105,000 unit delayed release capsule Take 2 capsules by mouth three times a day with meals. - metoclopramide HCl (REGLAN) 10 mg tablet Take 1 tablet by mouth three times a day with meals. - mjomex-uohjzccb-ihmdnje (CREON 24) 24,000-76,000 -120,000 unit delayed release [...] Status:Closed by IMELDA REYNOLDS on 09/10/23 Normal [facility] CA 19-9 BLDon 09-04-2023 Cancer Ag 19-9 Qn 8.0 [arb'U]/mL NINF - 36.0 U/mL [facility] Comment on above: Cancer antigen 19-9 test is used as an aid in monitoring response to treatment or recurrence in patients with established pancreatic, hepatobiliary, or gastrointestinal malignancies. Clinical correlation is required. The CA 19-9 Antigen test was performed using the [employer] DXI paramagnetic particle chemiluminescent immunoassay method. Results obtained with different assay methods or kits cannot be used interchangeably. Cancer Ag 19-9 Qnon 09-04-19 Interpretation and review of laboratory results Normal [facility] Cobalamin (Vitamin B12) [Mas s/Vol]on 09-04-2023 Interpretation and review of laboratory results Normal [facility] FERRITIN BLDon 09-04-2023 Ferritin [Mass/Vol] 314.0 ng/mL 30.3 - 565.7 ng/mL [facility] Ferritin [Mass/Vol]on 2023 Interpretation and review of laboratory results Normal [facility] Iron and Iron binding capaci ty panelon 09-04-2023 Interpretation and review of laboratory results Abnormal [facility] Iron [Mass/Vol] 27 ug/dL Low 41 - 186 ug/dL [facility] Iron binding capacity [Mass/Vol] 254 ug/dL 232 - 386 ug/dL [facility] Iron/TIBC [Molar ratio] 10.6 % Low 15.0 - 57.0 % [facility] VITAMIN B12 BLOODon 09-04-19 Cobalamin (Vitamin B12) [Mass/Vol] 758 pg/mL 232 - 1245 pg/mL [facility] Basophils Auto (Bld) [#/Vol] on 09-03-2023 Basophils (Bld) [#/Vol] 10*3/uL <0.11 [facility] Basophils/100 WBC Auto (Bld) on 09-03-2023 Basophils/100 WBC (Bld) 0.2 % [facility] Blood manual differential co mment interpretation narrativeon 09-03-2023 Manual differential comment Evgeny (Bld) [Interp] Auto [facility] CBC W Auto Differential pane l (Bld)on 09-03-2023 Basophils (Bld) [#/Vol] [facility] Basophils/100 WBC (Bld) 0.2 % [facility] Differential cell count method Nom (Bld) Auto [facility] Eosinophils (Bld) [#/Vol] 0.22 10*3/uL [facility] Eosinophils/100 WBC (Bld) 2.1 % [facility] Erythrocyte distribution width (RBC) [Ratio] 15.4 % High 11.5 - 15.0 % [facility] Hematocrit (Bld) [Volume fraction] 37.5 % Low 39.0 - 51.0 % [facility] Hemoglobin (Bld) [Mass/Vol] 12.0 g/dL Low 13.0 - 17.0 g/dL [facility] Immature granulocytes (Bld) [#/Vol] 0.03 10*3/uL [facility] Immature granulocytes/100 WBC (Bld) 0.3 % [facility] Interpretation and review of laboratory results Abnormal [facility] Lymphocytes (Bld) [#/Vol] 1.43 10*3/uL [facility] Lymphocytes/100 WBC (Bld) 13.7 % [facility] MCH (RBC) [Entitic mass] 31.1 pg 26.0 - 34.0 pg [facility] MCHC (RBC) [Mass/Vol] 32.0 g/dL 30.5 - 36.0 g/dL [facility] MCV (RBC) [Entitic vol] 97.2 fL 80.0 - 100.0 fL [facility] Monocytes (Bld) [#/Vol] 0.46 10*3/uL [facility] Monocytes/100 WBC (Bld) 4.4 % [facility] Neutrophils (Bld) [#/Vol] 8.27 10*3/uL High [facility] Neutrophils/100 WBC (Bld) 79.3 % [facility] Nucleated RBC (Bld) [#/Vol] [facility] Nucleated RBC/100 WBC (Bld) [Ratio] 0.0 % /100 WBC [facility] Platelet mean volume (Bld) [Entitic vol] 9.2 fL 9.0 - 12.7 fL [facility] Platelets (Bld) [#/Vol] 359 10*3/uL [facility] RBC (Bld) [#/Vol] 3.86 10*6/uL Low 4.20 - 6.00 m/uL [facility] WBC (Bld) [#/Vol] 10.43 10*3/uL [facility] Basophils (Bld) [#/Vol] 10*3/uL Normal <0.11 [facility] Comment on above: Order Comment: Speci men Type: BLOOD SPECIMENOrdering Facility: [facility] Address: [address] [place] [address] Performed By: #### 5 7021-8 ####[facility] LABCLIA [id number] [place] [address] Basophils/100 WBC (Bld) 0.2 % Normal [facility] Comment on above: Order Comment: Speci men Type: BLOOD SPECIMENOrdering Facility: [facility] Address: [address] [place] [address] Performed By: #### 5 7021-8 ####[facility] LABCLIA [id number] [place] [address] Differential cell count method Nom (Bld) Auto Normal [facility] Comment on above: Order Comment: Speci men Type: BLOOD SPECIMENOrdering Facility: [facility] Address: [address] [place] [address] Performed By: #### 5 7021-8 ####[facility] LABCLIA [id number] [place] [address] Eosinophils (Bld) [#/Vol] 0.22 10*3/uL Normal <0.46 [facility] Comment on above: Order Comment: Speci men Type: BLOOD SPECIMENOrdering Facility: [facility] Address: [address] [place] [address] Performed By: #### 5 7021-8 ####[facility] LABCLIA [id number] [place] [address] Eosinophils/100 WBC (Bld) 2.1 % Normal [facility] Comment on above: Order Comment: Speci men Type: BLOOD SPECIMENOrdering Facility: [facility] Address: [address] [place] [address] Performed By: #### 5 7021-8 ####[facility] LABCLIA [id number] [place] [address] Erythrocyte distribution width (RBC) [Ratio] 15.4 % High 11.5-15.0 [facility] Comment on above: Order Comment: Speci men Type: BLOOD SPECIMENOrdering Facility: [facility] Address: [address] [place] [address] Performed By: #### 5 7021-8 ####[facility] LABCLIA [id number] [place] [address] Hematocrit (Bld) [Volume fraction] 37.5 % Low 39.0-51.0 [facility] Comment on above: Order Comment: Speci men Type: BLOOD SPECIMENOrdering Facility: [facility] Address: [address] [place] [address] Performed By: #### 5 7021-8 ####[facility] LABCLIA [id number] [place] [address] Hemoglobin (Bld) [Mass/Vol] 12.0 g/dL Low 13.0-17.0 [facility] Comment on above: Order Comment: Speci men Type: BLOOD SPECIMENOrdering Facility: [facility] Address: [address] [place] [address] Performed By: #### 5 7021-8 ####[facility] LABCLIA [id number] [place] [address] Immature granulocytes (Bld) [#/Vol] 0.03 10*3/uL Normal <0.10 [facility] Comment on above: Order Comment: Speci men Type: BLOOD SPECIMENOrdering Facility: [facility] Address: [address] [place] [address] Performed By: #### 5 7021-8 ####[facility] LABCLIA [id number] [place] [address] Immature granulocytes/100 WBC (Bld) 0.3 % Normal [facility] Comment on above: Order Comment: Speci men Type: BLOOD SPECIMENOrdering Facility: [facility] Address: [address] [place] [address] Performed By: #### 5 7021-8 ####[facility] LABCLIA [id number] [place] [address] Lymphocytes (Bld) [#/Vol] 1.43 10*3/uL Normal 1.00-4.00 [facility] Comment on above: Order Comment: Speci men Type: BLOOD SPECIMENOrdering Facility: [facility] Address: [address] [place] [address] Performed By: #### 5 7021-8 ####[facility] LABCLIA [id number] [place] [address] Lymphocytes/100 WBC (Bld) 13.7 % Normal [facility] Comment on above: Order Comment: Speci men Type: BLOOD SPECIMENOrdering Facility: [facility] Address: [address] [place] [address] Performed By: #### 5 7021-8 ####[facility] LABCLIA [id number] [place] [address] MCH (RBC) [Entitic mass] 31.1 pg Normal 26.0-34.0 [facility] Comment on above: Order Comment: Speci men Type: BLOOD SPECIMENOrdering Facility: [facility] Address: [address] [place] [address] Performed By: #### 5 7021-8 ####[facility] LABCLIA [id number] [place] [address] MCHC (RBC) [Mass/Vol] 32.0 g/dL Normal 30.5-36.0 [facility] Comment on above: Order Comment: Speci men Type: BLOOD SPECIMENOrdering Facility: [facility] Address: [address] [place] [address] Performed By: #### 5 7021-8 ####[facility] LABCLIA [id number] [place] [address] MCV (RBC) [Entitic vol] 97.2 fL Normal 80.0-100.0 [facility] Comment on above: Order Comment: Speci men Type: BLOOD SPECIMENOrdering Facility: [facility] Address: [address] [place] [address] Performed By: #### 5 7021-8 ####[facility] LABCLIA [id number] [place] [address] Monocytes (Bld) [#/Vol] 0.46 10*3/uL Normal <0.87 [facility] Comment on above: Order Comment: Speci men Type: BLOOD SPECIMENOrdering Facility: [facility] Address: [address] [place] [address] Performed By: #### 5 7021-8 ####[facility] LABCLIA [id number] [place] [address] Monocytes/100 WBC (Bld) 4.4 % Normal [facility] Comment on above: Order Comment: Speci men Type: BLOOD SPECIMENOrdering Facility: [facility] Address: [address] [place] [address] Performed By: #### 5 7021-8 ####[facility] LABCLIA [id number] [place] [address] Neutrophils (Bld) [#/Vol] 8.27 10*3/uL High 1.45-7.50 [facility] Comment on above: Order Comment: Speci men Type: BLOOD SPECIMENOrdering Facility: [facility] Address: [address] [place] [address] Performed By: #### 5 7021-8 ####[facility] LABCLIA [id number] [place] [address] Neutrophils/100 WBC (Bld) 79.3 % Normal [facility] Comment on above: Order Comment: Speci men Type: BLOOD SPECIMENOrdering Facility: [facility] Address: [address] [place] [address] Performed By: #### 5 7021-8 ####[facility] LABCLIA [id number] [place] [address] Nucleated RBC (Bld) [#/Vol] 10*3/uL Normal <0.01 [facility] Comment on above: Order Comment: Speci men Type: BLOOD SPECIMENOrdering Facility: [facility] Address: [address] [place] [address] Performed By: #### 5 7021-8 ####[facility] LABCLIA [id number] [place] [address] Nucleated RBC/100 WBC (Bld) [Ratio] 0.0 /100 WBC Normal [facility] Comment on above: Order Comment: Speci men Type: BLOOD SPECIMENOrdering Facility: [facility] Address: [address] [place] [address] Performed By: #### 5 7021-8 ####[facility] LABIA [id number] [place] [address] Platelet mean volume (Bld) [Entitic vol] 9.2 fL Normal 9.0-12.7 [facility] Comment on above: Order Comment: Speci men Type: BLOOD SPECIMENOrdering Facility: [facility] Address: [address] [place] [address] Performed By: #### 5 7021-8 ####[facility] LABCLIA [id number] [place] [address] Platelets (Bld) [#/Vol] 359 10*3/uL Normal 150-400 [facility] Comment on above: Order Comment: Speci men Type: BLOOD SPECIMENOrdering Facility: [facility] Address: [address] [place] [address] Performed By: #### 5 7021-8 ####[facility] LABCLIA [id number] [place] [address] RBC (Bld) [#/Vol] 3.86 10*6/uL Low 4.20-6.00 [facility] Comment on above: Order Comment: Speci men Type: BLOOD SPECIMENOrdering Facility: [facility] Address: [address] [place] [address] Performed By: #### 5 7021-8 ####[facility] LABCLIA [id number] [place] [address] WBC (Bld) [#/Vol] 10.43 10*3/uL Normal 3.70-11.00 [facility] Comment on above: Order Comment: Speci men Type: BLOOD SPECIMENOrdering Facility: [facility] Address: [address] [place] [address] Performed By: #### 5 7021-8 ####[facility] LABCLIA [id number] [place] [address] CT ABD/PEL W IVCONon 024 CT ABD/PEL [...] (AEC) COMPARISON: PET/CT scan dated 03/11/23 from [facility] and CT abdomen/pelvis dated 01/20/23 from an [...] chest CT performed will be reported separately. Human Resources Support Specialist (topogram) images: No additional findings. IMPRESSION: 1. [...] any questions regarding this interpretation, please call [phone]. If you are unable to reach us at the number above, please feel free to contact [facility] eRadiology at [phone]. [id number] Normal [facility] CT Abdomen and Pelvis W cont rast Petyt 09-03-2023 IMPRESSION: 1. Mild mesenteric mesenteric lymphadenopathy, [...] any questions regarding this interpretation, please call [phone]. If you are unable to reach us at the number above, please feel free to contact [facility] eRadiology at [phone]. DIVISION OF RADIOLOGY * * *Final Report* [...] (AEC) COMPARISON: PET/CT scan dated 03/11/23 from [facility] and CT abdomen/pelvis dated 01/20/23 from an [...] chest CT performed will be reported separately. Human Resources Support Specialist (topogram) images: No additional findings. DIVISION OF RADIOLOGY Provider, [facility] - 09/03/2023 * * *Final Report* * [...] (AEC) COMPARISON: PET/CT scan dated 03/11/23 from [facility] and CT abdomen/pelvis dated 01/20/23 from an [...] chest CT performed will be reported separately. Human Resources Support Specialist (topogram) images: No additional findings. IMPRESSION IMPRESSION: [...] any questions regarding this interpretation, please call [phone]. If you are unable to reach us at the number above, please feel free to contact [facility] eRadiology at [phone]. [facility] CT Abdomen and Pelvis W cont rast IVOrdered By: Ccf Provider on 09-03-[address] [facility] [address] CHEST W IVCONon 4 [...] (AEC) Comparison: PET/CT scan dated 03/11/23 from [facility]; CT chest dated 01/19/23 RESULT: Limitations: Marked [...] any questions regarding this interpretation, please call [phone]. If you are unable to reach us at the number above, please feel free to contact [facility] eRadiology at [phone]. [id number] Normal [facility] CT Chest W contrast Petty IMPRESSION: [...] any questions regarding this interpretation, please call [phone]. If you are unable to reach us at the number above, please feel free to contact [facility] eRadiology at [phone]. DIVISION OF RADIOLOGY * * *Final Report* [...] (AEC) Comparison: PET/CT scan dated 03/11/23 from [facility]; CT chest dated 01/19/23 RESULT: Limitations: Marked [...] findings. DIVISION OF RADIOLOGY Provider, Lis Henry [place] - 09/03/2023 * * *Final Report* * [...] (AEC) Comparison: PET/CT scan dated 03/11/23 from [facility]; CT chest dated 01/19/23 RESULT: Limitations: Marked [...] any questions regarding this interpretation, please call [phone]. If you are unable to reach us at the number above, please feel free to contact [facility] eRadiology at [phone]. [facility] Cancer Ag19-9 SerPl-aCncon 0 09-03-2023 Cancer Ag 19-9 Qn 8.0 [arb'U]/mL Normal <36.0 [facility] Comment on above: Order Comment: Speci men Type: BLOOD SPECIMENOrdering Facility: [facility] Address: [address] [place] [address] Result Comment: [facility] er antigen 19-9 test is used as an aid in monitoring response to treatment or recurrence in patients with established pancreatic, hepatobiliary, or gastrointestinal malignancies. Clinical correlation is required. The CA 19-9 Antigen test was performed using the [employer] [place] [employer] DXI paramagnetic particle chemiluminescent immunoassay method. Results obtained with different assay methods or kits cannot be used interchangeably. Performed By: #### 2 4108-3 ####[facility] LABCLIA [id number] [place] [address] [place] Comprehensive metabolic 2000 panelOrdered By: Cody Bryson on 09-03-2023 Albumin [Mass/Vol] 3.8 g/dL Low 3.9 - 4.9 g/dL [facility] ALP [Catalytic activity/Vol] 126 U/L High 38 - 113 U/L [facility] ALT [Catalytic activity/Vol] 13 U/L 10 - 54 U/L [facility] Anion gap [Moles/Vol] 12 mmol/L 9 - 18 mmol/L [facility] AST [Catalytic activity/Vol] 16 U/L 14 - 40 U/L [facility] Bilirubin [Mass/Vol] 0.3 mg/dL 0.2 - 1 .3 mg/dL [facility] Calcium [Mass/Vol] 9.7 mg/dL 8.5 - 10. 2 mg/dL [facility] Chloride [Moles/Vol] 101 mmol/L 97 - 10 5 mmol/L [facility] CO2 [Moles/Vol] 22 mmol/L 22 - 30 mmol/L [facility] Creatinine [Mass/Vol] 0.58 mg/dL Low 0.73 - 1.22 mg/dL [facility] GFR/1.73 sq M.predicted among non-blacks MDRD (S/P/Bld) [Vol rate/Area] 108 mL/min/{1.73_m2} - PINF [facility] Comment on above: Estimated Glomerular [...] 103 mg/dL High 74 - 99 mg/dL [facility] Comment on above: The [place] Diabete s Association (ADA) provides guidance for [...] Standards of Medical Care in Diabetes 2016, [place] Diabetes Association. Diabetes Care. 2016.39(Suppl 1). Interpretation and review of laboratory results Abnormal [facility] Potassium [Moles/Vol] 4.8 mmol/L 3.7 - 5.1 mmol/L [facility] Protein [Mass/Vol] 7.4 g/dL 6.3 - 8.0 g/dL [facility] Sodium [Moles/Vol] 135 mmol/L Low 136 - 144 mmol/L [facility] Urea nitrogen [Mass/Vol] 22 mg/dL 9 - 24 mg/dL [facility] Comprehensive metabolic 2000 panelon 09-03-2023 Albumin [Mass/Vol] 3.8 g/dL Low 3.9-4.9 [facility] Comment on above: Order Comment: Speci men Type: BLOOD SPECIMENOrdering Facility: [facility] Address: [address] [place] [address] Performed By: #### 2 4323-8 ####[facility] LABCLIA [id number] [place] [address] ALP [Catalytic activity/Vol] 126 U/L High 38-113 [facility] Comment on above: Order Comment: Speci men Type: BLOOD SPECIMENOrdering Facility: [facility] Address: [address] [place] [address] Performed By: #### 2 4323-8 ####[facility] LABCLIA [id number] [place] [address] ALT [Catalytic activity/Vol] 13 U/L Normal 10-54 [facility] Comment on above: Order Comment: Speci men Type: BLOOD SPECIMENOrdering Facility: [facility] Address: [address] [place] [address] Performed By: #### 2 4323-8 ####[facility] LABCLIA [id number] [place] [address] Anion gap [Moles/Vol] 12 mmol/L Normal 9-18 [facility] Comment on above: Order Comment: Speci men Type: BLOOD SPECIMENOrdering Facility: [facility] Address: [address] [place] [address] Performed By: #### 2 4323-8 ####[facility] LABCLIA [id number] [place] [address] AST [Catalytic activity/Vol] 16 U/L Normal 14-40 [facility] Comment on above: Order Comment: Speci men Type: BLOOD SPECIMENOrdering Facility: [facility] Address: [address] [place] [address] Performed By: #### 2 4323-8 ####[facility] LABCLIA [id number] [place] [address] Bilirubin [Mass/Vol] 0.3 mg/dL Normal 0.2-1.3 [facility] Comment on above: Order Comment: Speci men Type: BLOOD SPECIMENOrdering Facility: [facility] Address: [address] [place] [address] Performed By: #### 2 4323-8 ####[facility] LABCLIA [id number] [place] [address] Calcium [Mass/Vol] 9.7 mg/dL Normal 8.5-10.2 [facility] Comment on above: Order Comment: Speci men Type: BLOOD SPECIMENOrdering Facility: [facility] Address: [address] [place] [address] Performed By: #### 2 4323-8 ####[facility] LABCLIA [id number] [place] [address] Chloride [Moles/Vol] 101 mmol/L Normal 97-105 [facility] Comment on above: Order Comment: Speci men Type: BLOOD SPECIMENOrdering Facility: [facility] Address: [address] [place] [address] Performed By: #### 2 4323-8 ####[facility] LABCLIA [id number] [place] [address] CO2 [Moles/Vol] 22 mmol/L Normal 22-30 [facility] Comment on above: Order Comment: Speci men Type: BLOOD SPECIMENOrdering Facility: [facility] Address: [address] [place] [address] Performed By: #### 2 4323-8 ####[facility] LABCLIA [id number] [place] [address] Creatinine [Mass/Vol] 0.58 mg/dL Low 0.73-1.22 [facility] Comment on above: Order Comment: Speci men Type: BLOOD SPECIMENOrdering Facility: [facility] Address: [address] [place], [place] [address] Performed By: #### 2 4323-8 ####[facility] LABCLIA [id number] [place] [address] Creatinine and Glomerular filtration rate.predicted panel (S/P/Bld) 108 mL/min/1.73m??? Normal >=60 [facility] Comment on above: Order Comment: Frank real Type: BLOOD SPECIMENOrdering Facility: [facility] Address: [address] [place] [address] Result Comment: Megan mated Glomerular Filtration Rate [...] actual GFR. Performed By: #### 2 4323-8 ####[facility] LABCLIA [id number] [place] [address] Glucose [Mass/Vol] 103 mg/dL High 74-99 [facility] Comment on above: Order Comment: Frank real Type: BLOOD SPECIMENOrdering Facility: [facility] Address: [address] [place] [address] Result Comment: The [place] Diabetes Association (ADA) provides guidance for cutoff [...] Standards of Medical Care in Diabetes 2016, [place] Diabetes Association. Diabetes Care. 2016.39(Suppl 1). Performed By: #### 2 4323-8 ####[facility] LABCLIA [id number] [place] [address] Potassium [Moles/Vol] 4.8 mmol/L Normal 3.7-5.1 [facility] Comment on above: Order Comment: Speci men Type: BLOOD SPECIMENOrdering Facility: [facility] Address: [address] [place] [address] Performed By: #### 2 4323-8 ####[facility] LABCLIA [id number] [place] [address] Protein [Mass/Vol] 7.4 g/dL Normal 6.3-8.0 [facility] Comment on above: Order Comment: Speci men Type: BLOOD SPECIMENOrdering Facility: [facility] Address: [address] [place] [address] Performed By: #### 2 4323-8 ####[facility] LABCLIA [id number] [place] [address] Sodium [Moles/Vol] 135 mmol/L Low 136-144 [facility] Comment on above: Order Comment: Speci men Type: BLOOD SPECIMENOrdering Facility: [facility] Address: [address] [place] [address] Performed By: #### 2 4323-8 ####[facility] LABCLIA [id number] [place] [address] Urea nitrogen [Mass/Vol] 22 mg/dL Normal 9-24 [facility] Comment on above: Order Comment: Speci men Type: BLOOD SPECIMENOrdering Facility: [facility] Address: [address] [place] [address] Performed By: #### 2 4323-8 ####[facility] LABCLIA [id number] [place] [address] Eosinophils/100 WBC Auto (Bl d)on 09-03-2023 Eosinophils/100 WBC (Bld) 2.1 % [facility] Erythrocyte distribution wid th Auto (RBC) [Ratio]on 09-03-2023 Erythrocyte distribution width (RBC) [Ratio] 15.4 % 11.5-15.0 [facility] Ferritin SerPl-mCncon 2023 Ferritin [Mass/Vol] 314.0 ng/mL Normal 30.3-565.7 [facility] Comment on above: Order Comment: Speci men Type: BLOOD SPECIMENOrdering Facility: [facility] Address: [address] [place] [address] Performed By: #### 5 0190-8, 2132-02, 2275-09 ####[facility] LABCLIA [id number] [place] [address] [place] Hematocrit Auto (Bld) [Volum e fraction]on 09-03-2023 Hematocrit (Bld) [Volume fraction] 37.5 % 39.0-51.0 [facility] Hemoglobin [Mass/volume] in Bloodon 09-03-2023 Hemoglobin (Bld) [Mass/Vol] 12.0 g/dL 13.0-17.0 [facility] Iron and Iron binding capaci ty panelon 09-03-2023 Iron [Mass/Vol] 27 ug/dL Low 41-186 [facility] Comment on above: Order Comment: Speci men Type: BLOOD SPECIMENOrdering Facility: [facility] Address: [address] [place] [address] Performed By: #### 5 0190-8, 2132-02, 2275-09 ####[facility] LABCLIA [id number] [place] [address] [place] Iron binding capacity [Mass/Vol] 254 ug/dL Normal 232-386 [facility] Comment on above: Order Comment: Speci men Type: BLOOD SPECIMENOrdering Facility: [facility] Address: [address] [place] [address] Performed By: #### 5 0190-8, 9, 2275-09 ####[facility] LABCLIA [id number] [place] [address] [place] Iron/TIBC [Molar ratio] 10.6 % Low 15.0-57.0 [facility] Comment on above: Order Comment: Speci men Type: BLOOD SPECIMENOrdering Facility: [facility] Address: [address] [place] [address] Performed By: #### 5 0190-8, 2132-9, 2276-4 ####[facility] LABCLIA [id number] [place] [address] [place] Iron binding capacity [Mass/ volume] in Serum or Plasmaon 09-03-2023 Iron binding capacity [Mass/Vol] 254 ug/dL 232-386 [facility] Iron saturation [Mass Fracti on] in Serum or Plasmaon 09-03-2023 Iron saturation [Mass fraction] 10.6 % 15.0-57.0 [facility] Laboratory - Chemistry and C hemistry - challengeon 09-03-2023 Albumin [Mass/Vol] 3.8 g/dL 3.9-4.9 [facility] ALP [Catalytic activity/Vol] 126 U/L 38-113 [facility] ALT [Catalytic activity/Vol] 13 U/L 10-54 [facility] AST [Catalytic activity/Vol] 16 U/L 14-40 [facility] Bilirubin [Mass/Vol] 0.3 mg/dL 0.2-1.3 [facility] Calcium [Mass/Vol] 9.7 mg/dL 8.5-10.2 [facility] Chloride [Moles/Vol] 101 mmol/L 97-105 [facility] CO2 [Moles/Vol] 22 mmol/L 22-30 [facility] Cobalamin (Vitamin B12) [Mass/Vol] 758 pg/mL 232-1245 [facility] Creatinine [Mass/Vol] 0.58 mg/dL 0.73-1.22 [facility] Ferritin [Mass/Vol] 314.0 ng/mL 30.3-565.7 [facility] Glucose [Mass/Vol] 103 mg/dL 74-99 [facility] Comment on above: The [place] Diabete s Association (ADA) provides guidance for [...] Standards of Medical Care in Diabetes 2016, [place] Diabetes Association. Diabetes Care. 2016.39(Suppl 1). Iron [Mass/Vol] 27 ug/dL 41-186 [facility] Potassium [Moles/Vol] 4.8 mmol/L 3.7-5.1 [facility] Sodium [Moles/Vol] 135 mmol/L 136-144 [facility] Urea nitrogen [Mass/Vol] 22 mg/dL 9-24 [facility] Laboratory - Hematology and Cell countson 09-03-2023 Eosinophils (Bld) [#/Vol] 0.22 10*3/uL <0.46 [facility] Immature granulocytes (Bld) [#/Vol] 0.03 10*3/uL <0.10 [facility] Immature granulocytes/100 WBC (Bld) 0.3 % [facility] Leukocytes [#/volume] correc missael for nucleated erythrocytes in Blood by Automated counon 09-03-2023 WBC corrected for nucl RBC Auto (Bld) [#/Vol] 10.43 k/uL 3.70-11.00 [facility] Lymphocytes Auto (Bld) [#/Vo l]on 09-03-2023 Lymphocytes (Bld) [#/Vol] 1.43 10*3/uL 1.00-4.00 [facility] Lymphocytes/100 WBC Auto (Bl d)on 09-03-2023 Lymphocytes/100 WBC (Bld) 13.7 % [facility] MCH Auto (RBC) [Entitic mass ]on 09-03-2023 MCH (RBC) [Entitic mass] 31.1 pg 26.0-34.0 [facility] MCHC Auto (RBC) [Mass/Vol]on 09-03-2023 MCHC (RBC) [Mass/Vol] 32.0 g/dL 30.5-36.0 [facility] MCV Auto (RBC) [Entitic vol] on 09-03-2023 MCV (RBC) [Entitic vol] 97.2 fL 80.0-100.0 [facility] Monocytes Auto (Bld) [#/Vol] on 09-03-2023 Monocytes (Bld) [#/Vol] 0.46 10*3/uL <0.87 [facility] Monocytes/100 WBC Auto (Bld) on 09-03-2023 Monocytes/100 WBC (Bld) 4.4 % [facility] Neutrophils Auto (Bld) [#/Vo l]on 09-03-2023 Neutrophils (Bld) [#/Vol] 8.27 10*3/uL 1.45-7.50 [facility] Neutrophils/100 WBC Auto (Bl d)on 09-03-2023 Neutrophils/100 WBC (Bld) 79.3 % [facility] No Panel Informationon 09-02 Radiology Study observation (narrative) [facility] Estimated GFR (CKD-EPI) 108 mL/min/1.73m??? >=60 [facility] Comment on above: Estimated Glomerular Filtration [...] 09-03-2023 Nucleated RBC (Bld) [#/Vol] 10*3/uL <0.01 [facility] Nucleated erythrocytes [Pres ence] in Blood by Automated counton 09-03-2023 Nucleated RBC Auto Ql (Bld) 0.0 /100{WBC} [facility] Platelet mean volume Auto (B ld) [Entitic vol]on 09-03-2023 Platelet mean volume (Bld) [Entitic vol] 9.2 fL 9.0-12.7 [facility] Platelets Auto (Bld) [#/Vol] on 09-03-2023 Platelets (Bld) [#/Vol] 359 10*3/uL 150-400 [facility] Protein [Mass/volume] in Ser um or Plasmaon 09-03-2023 Protein [Mass/Vol] 7.4 g/dL 6.3-8.0 [facility] RBC Auto (Bld) [#/Vol]on RBC (Bld) [#/Vol] 3.86 10*6/uL 4.20-6.00 [facility] Serum or plasma anion gap de terminationon 09-03-2023 Anion gap [Moles/Vol] 12 mmol/L 9-18 [facility] Serum or plasma cancer antig en 19-9 measurement (units/volume)on 09-03-2023 Cancer Ag 19-9 Qn 8.0 [arb'U]/mL <36.0 [facility] Comment on above: Cancer antigen 19-9 [...] (Vitamin B12) [Mass/Vol] 758 pg/mL Normal 232-1245 [facility] Comment on above: Order Comment: Speci men Type: BLOOD SPECIMENOrdering Facility: [facility] Address: [address] [place] [address] Performed By: #### 5 0190-8, 2132-9, 2276-4 ####[facility] LABCLIA [id number] [place] [address] [place] CNPRoxann 09-02-2023 CNPN Telephone (HEMASA) ROCIO JACKSON ([id number]) 1955 M Date Time Provider Department 09/02/23 CASSANDRA HERNANDEZ CORINE During your visit today, we recorded the following information about you: Cassandra Hernandez RN 09/02/2023 11:53 AM Signed Creon cost is 1500 for a 3 mo supply. Pharmacist at [facility] called around for Zenpep (creon substitute) and DDM, Remy is able to fill a 30 day supply for 600 dollars. Pharmacy: are there any programs to assist pt? Chris: pt has an appt with you tomorrow to discuss further FRANSICO Murdock Laura, [facility] 09/02/2023 4:32 PM Signed We [...] we will update her soon. [facility] 09/03/2023 4:01 PM Signed Printed free drug application for Cremeena from [employer] website: left message for patient's daughter to return call to pharmacy to update. Application needs patient's prescription card info, household size, income, consent, and a signature prior to faxing. Dr. May's portion is in his folder awaiting his signature. Tosin Zendejas [facility] Cassandra Hernandez RN 09/04/2023 8:15 AM Signed DaughterShiela called back to discuss free drug program information. Please call FRNASICO Murdock Kathryn, [facility] 09/04/2023 1:09 PM Signed Spoke [...] is a rx for Rocio at the [facility] in [place]. She verbalized understanding. Artur Reynolds PharmD, BCOP Imelda Reynolds, [facility] 09/10/2023 9:34 AM Signed Rocio approved for free Creon until , shipment should be received in the next 5-7 days. Call placed to Shiela to let her know. I left a message for her. Artur Reynolds PharmD, NANCYOP Allergies As of Date: 09/02/2023 (No Known Allergies) Date Reviewed: 06/23/2023 Reviewed by: Rola Gordon APRN.SPEECH TEACHER - Fully Assessed Reason for Visit: Medication Problem [65] Prescriptions as of 09/10/2023 - odzict-qabujzae-qxewtlf (ZENPEP) 25,000-79,000- 105,000 unit delayed release capsule Take 2 capsules by mouth three times a day with meals. - metoclopramide HCl (REGLAN) 10 mg tablet Take 1 tablet by mouth three times a day with meals. - zlrdqn-irkhaelc-ngsocai (CREON 24) 24,000-76,000 -120,000 unit delayed release [...] Status:Closed by IMELDA REYNOLDS on 09/04/23 Normal [facility] EGD / Colonoscopyon 08-05-19 [facility] 08-05-2023 L Specimen: [id number] Re ceived: 08/05/23 Status: MADDISON Negro Num: [id number] Spec Type: Surgical Subm Dr: Rick Zapata DO Tissues: A Small Intestine - Biopsy/Polyp (DUODENUM) B Colon Biopsy (ANTRUM BX) Procedures: HE/4, Gross/Micro L4/2 Age/ Patient Sex Location Account Attending Physician Rocio Jackson 68/M [facility] [id number] Rick Zapata DO SPEC NUM: [id number] RECD: 08/05/23 STATUS: PETERRichard NEGRO NUM: [id number] JAY: 08/05/[address]: Rick Zapata DO ENTERED: 08/05/[address] [facility] [address]: Fidel,Lab SPEC TYPE: Surgical DEPT: SONJA [...] [id number] Received: 08/05/23 Status: MADDISON Negro Num: [id number] Spec Type: Surgical Subm Dr: Rick Zapata DO Tissues: A Small Intestine - Biopsy/Polyp (DUODENUM) B Colon Biopsy (ANTRUM BX) Procedures: HE/Rocío, Gross/Micro L4/2 -------- Patient: Rocio Jackson [id number] (Continued) -------- Specimen: [id number] Received: 08/05/23 (Continued) Signed (signature on file) Alberto Barrientos MD 08/07/23 0597 -------- Specimen: [id number] Received: 08/05/23 Status: MADDISON Negro Num: [id number] Spec Type: Surgical Subm Dr: Rick Zapata DO Tissues: A Small Intestine - Biopsy/Polyp (DUODENUM) B Colon Biopsy (ANTRUM BX) Procedures: HE/4, Gross/Micro L4/2 -------- Patient: Rocio Jackson [id number] (Continued) -------- Specimen: [id number] Received: 08/05/23 (Continued) [...] in one cassette labeled B1. CPT Codes 80685y7 -------- -------- Specimen: [id number] Received: 08/05/23 Status: MADDISON Griggsrasheeda Num: [id number] Spec Type: Surgical Subm Dr: Rick Zapata DO Tissues: A Small Intestine - Biopsy/Polyp (DUODENUM) B Colon Biopsy (ANTRUM BX) Procedures: Vanessa ROMAN/Davina L4/2 -------- Patient: Rocio Jackson [id number] (Continued) -------- Signed (signature on file) Alberto Barrientos MD 08/07/23 4032 [facility] Surgical PathologyOrdered By : Mary Sinha on 08-05-2023 [facility] CBC W Auto Differential pane l (Bld)on 03-11-2023 Basophils (Bld) [#/Vol] [facility] Basophils/100 WBC (Bld) 0.2 % [facility] Differential cell count method Nom (Bld) Auto [facility] Eosinophils (Bld) [#/Vol] 0.18 10*3/uL [facility] Eosinophils/100 WBC (Bld) 2.9 % [facility] Erythrocyte distribution width (RBC) [Ratio] 13.5 % 11.5 - 15.0 % [facility] Hematocrit (Bld) [Volume fraction] 32.3 % Low 39.0 - 51.0 % [facility] Hemoglobin (Bld) [Mass/Vol] 10.3 g/dL Low 13.0 - 17.0 g/dL [facility] Immature granulocytes (Bld) [#/Vol] [facility] Immature granulocytes/100 WBC (Bld) 0.3 % [facility] Interpretation and review of laboratory results Abnormal [facility] Lymphocytes (Bld) [#/Vol] 1.81 10*3/uL [facility] Lymphocytes/100 WBC (Bld) 28.8 % [facility] MCH (RBC) [Entitic mass] 31.6 pg 26.0 - 34.0 pg [facility] MCHC (RBC) [Mass/Vol] 31.9 g/dL 30.5 - 36.0 g/dL [facility] MCV (RBC) [Entitic vol] 99.1 fL 80.0 - 100.0 fL [facility] Monocytes (Bld) [#/Vol] 0.66 10*3/uL [facility] Monocytes/100 WBC (Bld) 10.5 % [facility] Neutrophils (Bld) [#/Vol] 3.60 10*3/uL [facility] Neutrophils/100 WBC (Bld) 57.3 % [facility] Nucleated RBC (Bld) [#/Vol] [facility] Nucleated RBC/100 WBC (Bld) [Ratio] 0.0 % /100 WBC [facility] Platelet mean volume (Bld) [Entitic vol] 9.3 fL 9.0 - 12.7 fL [facility] Platelets (Bld) [#/Vol] 298 10*3/uL [facility] RBC (Bld) [#/Vol] 3.26 10*6/uL Low 4.20 - 6.00 m/uL [facility] WBC (Bld) [#/Vol] 6.28 10*3/uL [facility] Cobalamin (Vitamin B12) [Mas s/Vol]on 03-11-2023 Interpretation and review of laboratory results Normal [facility] Comprehensive metabolic 2000 panelOrdered By: Cody Bryson on 03-11-2023 Albumin [Mass/Vol] 3.5 g/dL Low 3.9 - 4.9 g/dL [facility] ALP [Catalytic activity/Vol] 107 U/L 38 - 113 U/L [facility] ALT [Catalytic activity/Vol] 17 U/L 10 - 54 U/L [facility] Anion gap [Moles/Vol] 11 mmol/L 9 - 18 mmol/L [facility] AST [Catalytic activity/Vol] 18 U/L 14 - 40 U/L [facility] Bilirubin [Mass/Vol] 0.3 mg/dL 0.2 - 1 .3 mg/dL [facility] Calcium [Mass/Vol] 9.3 mg/dL 8.5 - 10. 2 mg/dL [facility] Chloride [Moles/Vol] 106 mmol/L High 97 - 10 5 mmol/L [facility] CO2 [Moles/Vol] 22 mmol/L 22 - 30 mmol/L [facility] Creatinine [Mass/Vol] 0.77 mg/dL 0.73 - 1.22 mg/dL [facility] GFR/1.73 sq M.predicted among non-blacks MDRD (S/P/Bld) [Vol rate/Area] 99 mL/min/{1.73_m2} - PINF [facility] Comment on above: Estimated Glomerular [...] 117 mg/dL High 74 - 99 mg/dL [facility] Comment on above: The [place] Di[employer] Association (ADA) provides guidance for [...] Standards of Medical Care in Diabetes 2016, [place] [employer]. Diabetes Care. 2016.39(Suppl 1). Interpretation and review of laboratory results Abnormal [facility] Potassium [Moles/Vol] 4.2 mmol/L 3.7 - 5.1 mmol/L [facility] Protein [Mass/Vol] 6.8 g/dL 6.3 - 8.0 g/dL [facility] Sodium [Moles/Vol] 139 mmol/L 136 - 144 mmol/L [facility] Urea nitrogen [Mass/Vol] 22 mg/dL 9 - 24 mg/dL [facility] FERRITIN BLDon 03-11-2023 Ferritin [Mass/Vol] 302.0 ng/mL 30.3 - 565.7 ng/mL [facility] Ferritin [Mass/Vol]on 2022 Interpretation and review of laboratory results Normal [facility] GLUCOSE, BLOOD (POC)on 03-11 Glucose [Mass/Vol] 104 mg/dL Abnormal 74 - 99 mg/dL [facility] Comment on above: Location:[facility], [address] [place] [address] , [place], [place], [facility] The Accu-Chek Inform II glucose meter [...] Interpretation and review of laboratory results Abnormal [facility] Iron [Mass/Vol] 37 ug/dL Low 41 - 186 ug/dL [facility] Iron binding capacity [Mass/Vol] [facility] Comment on above: Unable to calculate due to hemolysis. Iron/TIBC [Molar ratio] [facility] Comment on above: Unable to calculate due to hemolysis. [facility] PET+CT Guidance for localiza tion [...] any questions regarding this interpretation, please call [phone]. If you are unable to reach us at the number above, please feel free to contact [facility] eRadiology at [phone]. DIVISION OF RADIOLOGY * * *Final Report* [...] Degenerative arthritic change. DIVISION OF RADIOLOGY Provider, [facility] - 03/11/2023 * * *Final Report* * [...] any questions regarding this interpretation, please call [phone]. If you are unable to reach us at the number above, please feel free to contact [facility] eRadiology at [phone]. [facility] Radiology Study observation (narrative) [facility] PET+CT Guidance for localiza tion of tumor of Skull base to mid-thigh-- W [id number] IVOrdered By: [facility] Provider on 03-11-2023 [facility] VITAMIN B12 BLOODon 03-11-20 Cobalamin (Vitamin B12) [Mass/Vol] 758 pg/mL 232 - 1245 pg/mL [facility] Albumin Levelon 02-10-2023 Albumin [Mass/Vol] 3.4 g/dL Low 3.5-5.7 [facility] Comment on above: Order Comment: Diagn osis: E11.9, I10, E46, D64.9 Comment: [id number], DECLAN, RM112, HM, 02/06/23 Result Comment: PERF ORMED BY: [place] [address] PATHOLOGIST RISK ASSESSMENT ANALYST ESTIVEN GENTILE M.D. Performed By: #### A LB, CBC, BMP #### [facility] [address] [place] [address] [place] Albumin [Mass/volume] in Ser um or Plasma by Bromocresol green (BCG) dye binding methoOrdered By: Adriane Espitia on 02-10-2023 Albumin BCG dye [Mass/Vol] 3.4 g/dL 3.5-5.7 [facility] Basic Metabolic Panelon 01-27 Anion gap [Moles/Vol] 11.5 mmol/L Normal 6.0-15.0 [facility] Comment on above: Order Comment: Diagn osis: E11.9, I10, E46, D64.9 Comment: [id number], DECLAN, RM112, HM, 02/06/23 Performed By: #### A LB, CBC, BMP #### [facility] [address] [place] [id number] [place] Calcium [Mass/Vol] 8.8 mg/dL Normal 8.6-10.3 [facility] Comment on above: Order Comment: Diagn osis: E11.9, I10, E46, D64.9 Comment: [id number], BLADIMIRZ, RM112, HM, 02/06/23 Performed By: #### A LB, CBC, BMP #### [facility] [address] [place] [address] [place] Chloride [Moles/Vol] 103 mmol/L Normal 98-107 [facility] Comment on above: Order Comment: Diagn osis: E11.9, I10, E46, D64.9 Comment: [id number], OGONTZ, RM112, HM, 02/06/23 Performed By: #### A LB, CBC, BMP #### [facility] [address] [place] [id number] [facility] [[email or web address]] CO2 [Moles/Vol] 25.2 mmol/L Normal 21.0-31.0 [facility] Comment on above: Order Comment: Diagn osis: E11.9, I10, E46, D64.9 Comment: [id number], OGONTZ, RM112, HM, 02/06/23 Performed By: #### A LB, CBC, BMP #### [facility] [address] [place] [id number] [facility] [[email or web address]] Creatinine [Mass/Vol] 0.65 mg/dL Low 0.70-1.30 [facility] Comment on above: Order Comment: Diagn osis: E11.9, I10, E46, D64.9 Comment: [id number], OGONTZ, RM112, HM, 02/06/23 Performed By: #### A LB, CBC, BMP #### [facility] [address] [place] [address] [place] GFR/1.73 sq M.predicted MDRD (S/P/Bld) [Vol rate/Area] mL/min/{1.73_m2} [facility] Comment on above: Order Comment: Diagn osis: E11.9, I10, E46, D64.9 Comment: [id number], OGONTZ, RM112, HM, 02/06/23 Performed By: #### A LB, CBC, BMP #### [facility] [address] [place] [address] [place] Glucose [Mass/Vol] 102 mg/dL High 70-100 [facility] Comment on above: Order Comment: Diagn osis: E11.9, I10, E46, D64.9 Comment: [id number], OGMIKHAILZ, RM112, , 02/06/23 Result Comment: [facility] Glucose Reference Range is dependent on time and content of last meal. Glucose of more than 200 mg/dL in a nonstressed, ambulatory subject supports the diagnosis of Diabetes Mellitus. ADA recommended reference range Performed By: #### A LB, CBC, BMP #### [facility] [address] Potassium [Moles/Vol] 4.7 mmol/L Normal 3.5-5.1 [facility] Comment on above: Order Comment: Diagn osis: E11.9, I10, E46, D64.9 Comment: [id number], DECLAN, RM112, , 02/06/23 Performed By: #### A LB, CBC, BMP #### [address] Sodium [Moles/Vol] 135 mmol/L Low 136-145 [facility] Comment on above: Order Comment: Diagn osis: E11.9, I10, E46, D64.9 Comment: [id number], OGMIKHAILZ, RM112, , 02/06/23 Performed By: #### A LB, CBC, BMP #### [address] Urea nitrogen [Mass/Vol] 19 mg/dL Normal 7-25 [facility] Comment on above: Order Comment: Diagn osis: E11.9, I10, E46, D64.9 Comment: [id number], OGONTZ, RM112, , 02/06/23 Performed By: #### A LB, CBC, BMP #### [facility] [address] [place] [address] Basophils Auto (Bld) [#/Vol] Ordered By: Adriane Espitia on 02-10-2023 Basophils (Bld) [#/Vol] 0.0 10*3/uL 0.0-0.2 [facility] Basophils/100 WBC Auto (Bld) Ordered By: Adriane Espitia on 02-10-2023 Basophils/100 WBC (Bld) 0.4 % . [facility] Calcium [Mass/volume] in Ser um or PlasmaOrdered By: Adriane Espitia on 02-10-2023 Calcium [Mass/Vol] 8.8 mg/dL 8.6-10.3 [facility] Carbon dioxide, total [Moles /volume] in Serum or PlasmaOrdered By: Adriane Espitia on 02-10-2023 CO2 [Moles/Vol] 25.2 mmol/L 21.0-31.0 [facility] Chloride [Moles/volume] in S brandi or PlasmaOrdered By: Adriane Espitia on 02-10-2023 Chloride [Moles/Vol] 103 mmol/L 98-107 [facility] Complete Blood Count Auto Di ffon 02-10-2023 Basophils (Bld) [#/Vol] 0.0 10*3/uL Normal 0.0-0.2 [facility] Comment on above: Order Comment: Diagn osis: E11.9, I10, E46, D64.9 Comment: [id number], DECLAN, RMRobinson, , 02/06/23 Result Comment: PERF ORMED BY: [place] [address] PATHOLOGIST RISK ASSESSMENT ANALYST ESTIVEN GENTILE M.D. Performed By: #### A LB, CBC, BMP #### [facility] [address] [place] [address] Basophils/100 WBC (Bld) 0.4 % Normal . [facility] Comment on above: Order Comment: Diagn osis: E11.9, I10, E46, D64.9 Comment: [id number], DECLAN, RMRobinson, , 02/06/23 Performed By: #### A LB, CBC, BMP #### [facility] [address] [place] [address] Eosinophils (Bld) [#/Vol] 0.1 10*3/uL Normal 0.0-0.45 [facility] Comment on above: Order Comment: Diagn osis: E11.9, I10, E46, D64.9 Comment: [id number], DECLAN, RM112, , 02/06/23 Performed By: #### A LB, CBC, BMP #### [address] Eosinophils/100 WBC (Bld) 3.1 % Normal . [facility] Comment on above: Order Comment: Diagn osis: E11.9, I10, E46, D64.9 Comment: [id number], OGONTZ, RM112, HM, 02/06/23 Performed By: #### A LB, CBC, BMP #### [address] Erythrocyte distribution width (RBC) [Ratio] 14.4 % Normal 12.0-14.8 [facility] Comment on above: Order Comment: Diagn osis: E11.9, I10, E46, D64. Comment: [id number], OGONTZ, RM112, HM, 02/06/23 Performed By: #### A LB, CBC, BMP #### [address] Hematocrit (Bld) [Volume fraction] 30.9 % Low 38.8-50.0 [facility] Comment on above: Order Comment: Diagn osis: E11.9, I10, E46, D64.9 Comment: [id number], OGONTZ, RM112, HM, 02/06/23 Performed By: #### A LB, CBC, BMP #### [address] Hemoglobin (Bld) [Mass/Vol] 10.3 g/dL Low 13.0-17.0 [facility] Comment on above: Order Comment: Diagn osis: E11.9, I10, E46, D64.9 Comment: [id number], OGONTZ, RM112, HM, 02/06/23 Performed By: #### A LB, CBC, BMP #### [address] Lymphocytes (Bld) [#/Vol] 1.3 10*3/uL Normal 1.00-4.8 [facility] Comment on above: Order Comment: Diagn osis: E11.9, I10, E46, D64.9 Comment: [id number], OGONTZ, RM112, , 02/06/23 Performed By: #### A LB, CBC, BMP #### [facility] [address] Lymphocytes/100 WBC (Bld) 28.3 % Normal . [facility] Comment on above: Order Comment: Diagn osis: E11.9, I10, E46, D64.9 Comment: [id number], OGONTZ, RM112, , 02/06/23 Performed By: #### A LB, CBC, BMP #### [address] MCH (RBC) [Entitic mass] 32.0 pg Normal 27.5-35.2 [facility] Comment on above: Order Comment: Diagn osis: E11.9, I10, E46, D64. Comment: [id number], OGONTZ, RM112, , 02/06/23 Performed By: #### A LB, CBC, BMP #### [address] MCV (RBC) [Entitic vol] 96.3 fL Normal 83.5-101 [facility] Comment on above: Order Comment: Diagn osis: E11.9, I10, E46, D64. Comment: [id number], OGMIKHAILZ, RM112, , 02/06/23 Performed By: #### A LB, CBC, BMP #### [address] Mean Corpuscular HGB Conc 33.3 g/dL Normal 32.5-35.6 [facility] Comment on above: Order Comment: Diagn osis: E11.9, I10, E46, D64. Comment: [id number], OGONTZ, RM112, , 02/06/23 Performed By: #### A LB, CBC, BMP #### [address] Monocytes (Bld) [#/Vol] 0.5 10*3/uL Normal 0.0-0.8 [facility] Comment on above: Order Comment: Diagn osis: E11.9, I10, E46, D64.9 Comment: [id number], OGONTZ, RM112, , 02/06/23 Performed By: #### A LB, CBC, BMP #### [facility] [address] [place] [id number] [facility] [[email or web address]] Monocytes/100 WBC (Bld) 10.1 % Normal . [facility] Comment on above: Order Comment: Diagn osis: E11.9, I10, E46, D64.9 Comment: [id number], OGONTZ, RM112, HM, 02/06/23 Performed By: #### A LB, CBC, BMP #### [facility] [address] [place] [address] [place] Neutrophils (Bld) [#/Vol] 2.7 10*3/uL Normal 1.8-7.7 [facility] Comment on above: Order Comment: Diagn osis: E11.9, I10, E46, D64.9 Comment: [id number], OGONTZ, RM112, , 02/06/23 Performed By: #### A LB, CBC, BMP #### [facility] [address] Neutrophils/100 WBC (Bld) 58.1 % Normal . [facility] Comment on above: Order Comment: Diagn osis: E11.9, I10, E46, D64.9 Comment: [id number], OGONTZ, RM112, , 02/06/23 Performed By: #### A LB, CBC, BMP #### [facility] [address] [place] [id number] [place] NRBC% 0.0 /100{WBC} Normal 0-0.5 [facility] Comment on above: Order Comment: Diagn osis: E11.9, I10, E46, D64.9 Comment: [id number], OGONTZ, RM112, , 02/06/23 Performed By: #### A LB, CBC, BMP #### [facility] [address] [place] [address] [place] Platelet mean volume (Bld) [Entitic vol] 7.6 fL Normal 6.6-10.1 [facility] Comment on above: Order Comment: Diagn osis: E11.9, I10, E46, D64.9 Comment: [id number], OGONTZ, RM112, HM, 02/06/23 Performed By: #### A LB, CBC, BMP #### [facility] [address] Platelets (Bld) [#/Vol] 281 10*3/uL Normal 150-450 [facility] Comment on above: Order Comment: Diagn osis: E11.9, I10, E46, D64.9 Comment: [id number], OGONTZ, RM112, HM, 02/06/23 Performed By: #### A LB, CBC, BMP #### [facility] [address] [place] [address] RBC (Bld) [#/Vol] 3.21 10*6/uL Low 3.90-5.60 [facility] Comment on above: Order Comment: Diagn osis: E11.9, I10, E46, D64.9 Comment: [id number], OGONTZ, RM112, HM, 02/06/23 Performed By: #### A LB, CBC, BMP #### [facility] [address] [place] [address] WBC (Bld) [#/Vol] 4.7 10*3/uL Normal 4.1-10.5 [facility] Comment on above: Order Comment: Diagn osis: E11.9, I10, E46, D64.9 Comment: [id number], OGONTZ, RM112, HM, 02/06/23 Performed By: #### A LB, CBC, BMP #### [facility] [address] Creatinine [Mass/volume] in Serum or PlasmaOrdered By: Adriane Espitia on 02-10-2023 Creatinine [Mass/Vol] 0.65 mg/dL 0.70-1.30 [facility] Eosinophils Auto (Bld) [#/Vo l]Ordered By: Adriane Espitia on 02-10-2023 Eosinophils (Bld) [#/Vol] 0.1 10*3/uL 0.0-0.45 [facility] Eosinophils/100 WBC Auto (Bl d)Ordered By: Adriane Espitia on 02-10-2023 Eosinophils/100 WBC (Bld) 3.1 % . [facility] Erythrocyte distribution wid th Auto (RBC) [Ratio]Ordered By: Adriane Espitia on 02-10-2023 Erythrocyte distribution width (RBC) [Ratio] 14.4 % 12.0-14.8 [facility] Glucose [Mass/volume] in Ser um or PlasmaOrdered By: Adriane Espitia on 02-10-2023 Glucose [Mass/Vol] 102 mg/dL 70-100 [facility] Comment on above: ADA recommended refe rence rangeRandom Glucose Reference Range is dependent on time and content of last meal. Glucose of more than 200 mg/dL in a nonstressed, ambulatory subject supports the diagnosis of Diabetes Mellitus. Hematocrit Auto (Bld) [Volum e fraction]Ordered By: Adriane Espitia on 02-10-2023 Hematocrit (Bld) [Volume fraction] 30.9 % 38.8-50.0 [facility] Hemoglobin [Mass/volume] in BloodOrdered By: Adriane Espitia on 02-10-2023 Hemoglobin (Bld) [Mass/Vol] 10.3 g/dL 13.0-17.0 [facility] Leukocytes [#/volume] correc missael for nucleated erythrocytes in Blood by Automated counOrdered By: Adriane Espitia on 02-10-2023 WBC corrected for nucl RBC Auto (Bld) [#/Vol] 4.7 10*3/uL 4.1-10.5 [facility] Lymphocytes Auto (Bld) [#/Vo l]Ordered By: Adriane Espitia on 02-10-2023 Lymphocytes (Bld) [#/Vol] 1.3 10*3/uL 1.00-4.8 [facility] Lymphocytes/100 WBC Auto (Bl d)Ordered By: Adriane Espitia on 02-10-2023 Lymphocytes/100 WBC (Bld) 28.3 % . [facility] MCH Auto (RBC) [Entitic mass ]Ordered By: Adriane Espitia on 02-10-2023 MCH (RBC) [Entitic mass] 32.0 pg 27.5-35.2 [facility] MCHC Auto (RBC) [Mass/Vol]Or dered By: Adriane Espitia on 02-10-2023 MCHC (RBC) [Mass/Vol] 33.3 g/dL 32.5-35.6 [facility] MCV Auto (RBC) [Entitic vol] Ordered By: Adriane Espitia on 02-10-2023 MCV (RBC) [Entitic vol] 96.3 fL 83.5-101 [facility] Monocytes Auto (Bld) [#/Vol] Ordered By: Adriane Espitia on 02-10-2023 Monocytes (Bld) [#/Vol] 0.5 10*3/uL 0.0-0.8 [facility] Monocytes/100 WBC Auto (Bld) Ordered By: Adriane Espitia on 02-10-2023 Monocytes/100 WBC (Bld) 10.1 % . [facility] Neutrophils Auto (Bld) [#/Vo l]Ordered By: Adriane Espitia on 02-10-2023 Neutrophils (Bld) [#/Vol] 2.7 10*3/uL 1.8-7.7 [facility] Neutrophils/100 WBC Auto (Bl d)Ordered By: Adriane Espitia on 02-10-2023 Neutrophils/100 WBC (Bld) 58.1 % . [facility] No Panel InformationOrdered By: Adriane Espitia on 02-10-2023 Estimated GFR (CKD-EPI) > 60.0 mL/Min [facility] Creatinine Clearance (Chem N/A [facility] Nucleated erythrocytes [Pres ence] in Blood by Automated countOrdered By: Adriane Espitia on 02-10-2023 Nucleated RBC Auto Ql (Bld) 0.0 /100{WBC} 0-0.5 [facility] Platelet mean volume Auto (B ld) [Entitic vol]Ordered By: Adraine Espitia on 02-10-2023 Platelet mean volume (Bld) [Entitic vol] 7.6 fL 6.6-10.1 [facility] Platelets Auto (Bld) [#/Vol] Ordered By: Adriane Espitia on 02-10-2023 Platelets (Bld) [#/Vol] 281 10*3/uL 150-450 [facility] Potassium [Moles/volume] in Serum or PlasmaOrdered By: Adriane Espitia on 02-10-2023 Potassium [Moles/Vol] 4.7 mmol/L 3.5-5.1 [facility] RBC Auto (Bld) [#/Vol]Ordere d By: Adriane Espitia on 02-10-2023 RBC (Bld) [#/Vol] 3.21 10*6/uL 3.90-5.60 [facility] Relevant diagnostic tests/la boratory data Narrativeon 02-10-2023 Albumin [Mass/Vol] 3.4 g/dL Low 3.5-5.7 [facility] Work Phone: Anion gap [Moles/Vol] 11.5 mmol/L 6.0-15.0 [facility] Work Phone: Basophils (Bld) [#/Vol] 0 10*3/uL 0.0-0.2 [facility] Work Phone: Basophils/100 WBC (Bld) 0.4 % . [facility] Work Phone: Calcium [Mass/Vol] 8.8 mg/dL 8.6-10.3 [facility] Work Phone: Chloride [Moles/Vol] 103 mmol/L 98-107 [facility] Work Phone: CO2 [Moles/Vol] 25.2 mmol/L 21.0-31.0 [facility] Work Phone: Creatinine [Mass/Vol] 0.65 mg/dL Low 0.70-1.30 [facility] Work Phone: Eosinophils (Bld) [#/Vol] 0.1 10*3/uL 0.0-0.45 [facility] Work Phone: Eosinophils/100 WBC (Bld) 3.1 % . [facility] Work Phone: Erythrocyte distribution width (RBC) [Entitic vol] 14.4 % 12.0-14.8 [facility] Work Phone: GFR/1.73 sq M.predicted MDRD (S/P/Bld) [Vol rate/Area] mL/min/{1.73_m2} [facility] Work Phone: Glucose [Mass/Vol] 102 mg/dL High 70-100 [facility] Work Phone: Hematocrit (Bld) [Volume fraction] 30.9 % Low 38.8-50.0 [facility] Work Phone: Hemoglobin (Bld) [Mass/Vol] 10.3 g/dL Low 13.0-17.0 [facility] Work Phone: Lymphocytes (Bld) [#/Vol] 1.3 10*3/uL 1.00-4.8 [facility] Work Phone: Lymphocytes/100 WBC (Bld) 28.3 % . [facility] Work Phone: MCH (RBC) [Entitic mass] 96.3 fL 83.5-101 [facility] Work Phone: MCH (RBC) [Entitic mass] 32 pg 27.5-35.2 [facility] Work Phone: MCHC (RBC) [Mass/Vol] 33.3 g/dL 32.5-35.6 [facility] Work Phone: Monocytes (Bld) [#/Vol] 0.5 10*3/uL 0.0-0.8 [facility] Work Phone: Monocytes/100 WBC (Bld) 10.1 % . [facility] Work Phone: Neutrophils (Bld) [#/Vol] 2.7 10*3/uL 1.8-7.7 [facility] Work Phone: Neutrophils/100 WBC (Bld) 58.1 % . [facility] Work Phone: Nucleated RBC (Bld) [#/Vol] 0 /100{WBC} 0-0.5 [facility] Work Phone: Platelet mean volume (Bld) [Entitic vol] 7.6 fL 6.6-10.1 [facility] Work Phone: Platelets (Bld) [#/Vol] 281 10*3/uL 150-450 [facility] Work Phone: Potassium [Moles/Vol] 4.7 mmol/L 3.5-5.1 [facility] Work Phone: RBC (Bld) [#/Vol] 3.21 10*6/uL Low 3.90-5.60 [facility] Work Phone: Sodium [Moles/Vol] 135 mmol/L Low 136-145 [facility] Work Phone: Urea nitrogen [Mass/Vol] 19 mg/dL 01-20 [facility] Work Phone: WBC (Bld) [#/Vol] 4.7 10*3/uL 4.1-10.5 [facility] Work Phone: WBC casts LM.LPF (Urine sed) [#/Area] 4.7 10*3/uL 4.1-10.5 [facility] Work Phone: Serum or plasma anion gap de terminationOrdered By: Adriane Espitia on 02-10-2023 Anion gap [Moles/Vol] 11.5 mmol/L 6.0-15.0 [facility] Sodium [Moles/volume] in Ser um or PlasmaOrdered By: Adriane Espitia on 02-10-2023 Sodium [Moles/Vol] 135 mmol/L 136-145 [facility] Urea nitrogen [Mass/volume] in Serum or PlasmaOrdered By: Adriane Espitia on 02-10-2023 Urea nitrogen [Mass/Vol] 19 mg/dL 01-20 [facility] WBC Auto (Bld) [#/Vol]Ordere d By: Adriane Espitia on 02-10-2023 WBC (Bld) [#/Vol] 4.7 10*3/uL 4.1-10.5 [facility] Relevant diagnostic tests/la boratory data Narrativeon 01-28-2023 Albumin [Mass/Vol] 2.9 g/dL Low 3.5-5.7 [facility] Work Phone: Anion gap [Moles/Vol] 7.1 mmol/L 6.0-15.0 [facility] Work Phone: Basophils (Bld) [#/Vol] 0 10*3/uL 0.0-0.2 [facility] Work Phone: Basophils/100 WBC (Bld) 0.5 % . [facility] Work Phone: C-Peptide 1.4 ng/mL 1.1-4.4 [facility] Work Phone: Calcium [Mass/Vol] 7.8 mg/dL Low 8.6-10.3 [facility] Work Phone: Chloride [Moles/Vol] 109 mmol/L High 98-107 [facility] Work Phone: Cholesterol [Mass/Vol] 72 mg/dL Low 140-200 [facility] Work Phone: Cholesterol in HDL [Mass/Vol] 22 mg/dL Low 23-92 [facility] Work Phone: Cholesterol.total/Cho lesterol in HDL [Mass ratio] 3.3 {ratio} <5.0 [facility] Work Phone: CK [Catalytic activity/Vol] 59 U/L 30-223 [facility] Work Phone: CO2 [Moles/Vol] 25.2 mmol/L 21.0-31.0 [facility] Work Phone: Cobalamin (Vitamin B12) [Mass/Vol] 498 pg/mL 180-914 [facility] Work Phone: Creatinine [Mass/Vol] 0.66 mg/dL Low 0.70-1.30 [facility] Work Phone: Eosinophils (Bld) [#/Vol] 0.1 10*3/uL 0.0-0.45 [facility] Work Phone: Eosinophils/100 WBC (Bld) 3.7 % . [facility] Work Phone: Erythrocyte distribution width (RBC) [Entitic vol] 14.7 % 12.0-14.8 [facility] Work Phone: GFR/1.73 sq M.predicted MDRD (S/P/Bld) [Vol rate/Area] mL/min/{1.73_m2} [facility] Work Phone: Glucose [Mass/Vol] 151 mg/dL [facility] Work Phone: Glucose [Mass/Vol] 111 mg/dL High 70-100 [facility] Work Phone: HbA1c (Bld) [Mass fraction] 6.9 % High 4.3-5.6 [facility] Work Phone: Hematocrit (Bld) [Volume fraction] 27.4 % Low 38.8-50.0 [facility] Work Phone: Hemoglobin (Bld) [Mass/Vol] 9.1 g/dL Low 13.0-17.0 [facility] Work Phone: LDL Cholesterol,Calculate d 40 mg/dL 0-100 [facility] Work Phone: Lymphocytes (Bld) [#/Vol] 1.1 10*3/uL 1.00-4.8 [facility] Work Phone: Lymphocytes/100 WBC (Bld) 27.2 % . [facility] Work Phone: MCH (RBC) [Entitic mass] 95.3 fL 83.5-101 [facility] Work Phone: MCH (RBC) [Entitic mass] 31.7 pg 27.5-35.2 [facility] Work Phone: MCHC (RBC) [Mass/Vol] 33.3 g/dL 32.5-35.6 [facility] Work Phone: Monocytes (Bld) [#/Vol] 0.4 10*3/uL 0.0-0.8 [facility] Work Phone: Monocytes/100 WBC (Bld) 10.1 % . [facility] Work Phone: Neutrophils (Bld) [#/Vol] 2.3 10*3/uL 1.8-7.7 [facility] Work Phone: Neutrophils/100 WBC (Bld) 58.5 % . [facility] Work Phone: Nucleated RBC (Bld) [#/Vol] 0.2 /100{WBC} 0-0.5 [facility] Work Phone: Platelet mean volume (Bld) [Entitic vol] 7 fL 6.6-10.1 [facility] Work Phone: Platelets (Bld) [#/Vol] 302 10*3/uL 150-450 [facility] Work Phone: Potassium [Moles/Vol] 4.3 mmol/L 3.5-5.1 [facility] Work Phone: RBC (Bld) [#/Vol] 2.88 10*6/uL Low 3.90-5.60 [facility] Work Phone: Reticulocyte Number 0.035 10*6/uL 0.024-0 .08 4 [facility] Work Phone: Reticulocyte Percent 1.2 % 0.5-1.5 [facility] Work Phone: Sodium [Moles/Vol] 137 mmol/L 136-145 [facility] Work Phone: Triglyceride w/Reflex 52 mg/dL 0-149 [facility] Work Phone: Urea nitrogen [Mass/Vol] 16 mg/dL 7-25 [facility] Work Phone: Vitamin D 25 Hydroxy Total < 7.0 Low 30-100 [facility] Work Phone: VLDL CHOLESTEROL 10 mg/dL [facility] Work Phone: WBC (Bld) [#/Vol] 4 10*3/uL Low 4.1-10.5 [facility] Work Phone: WBC casts LM.LPF (Urine sed) [#/Area] 4 10*3/uL Low 4.1-10.5 [facility] Work Phone: A1C with Estimated Average G luon 01-27-2023 Glucose [Mass/Vol] 151 mg/dL Normal [facility] Comment on above: Order Comment: Diagn osis: D64.9, I48.0, E11.9, K90.81 Comment: [id number], ALYSSIA MANRIQUEZ, TORY, 01/23/23 Result Comment: PERF ORMED BY: [place] [address] PATHOLOGIST RISK ASSESSMENT ANALYST ESTIVEN GENTILE M.D. Performed By: #### C BC, RETIC, B12, CK, ALB, A1C WTH eA, [id number], LIPID, BMP #### [facility] [address] [place] [address] #### CPEP #### [facility] , HbA1c (Bld) [Mass fraction] 6.9 % High 4.3-5.6 [facility] Comment on above: Order Comment: Diagn osis: D64.9, I48.0, E11.9, K90.81 Comment: [id number], DECLAN, RM112, HM, 01/23/23 Result Comment: Incr eased risk for diabetes: 5.7 - 6.4 diabetes: >6.4 glycemic control for adults with diabetes: <7.0 Performed By: #### C BC, RETIC, B12, CK, ALB, A1C WTH eA, [id number], LIPID, BMP #### [facility] [address] [place] [address] #### CPEP #### [facility] , Absolute reticulocyte countO rdered By: Adriane Espitia on 01-27-2023 Reticulocytes (Bld) [#/Vol] 0.035 10*6/uL 0.024-0.08 4 [facility] Albumin Levelon 01-27-2023 Albumin [Mass/Vol] 2.9 g/dL Low 3.5-5.7 [facility] Comment on above: Order Comment: Diagn osis: D64.9, I48.0, E11.9, K90.81 Comment: [id number], ALYSSIA MANRIQUEZ, , 01/23/23 Performed By: #### C BC, RETIC, B12, CK, ALB, A1C WTH eA, [id number], LIPID, BMP #### [address] #### CPEP #### [facility] , Albumin [Mass/volume] in Ser um or Plasma by Bromocresol green (BCG) dye binding methoOrdered By: Adriane Espitia on 01-27-2023 Albumin BCG dye [Mass/Vol] 2.9 g/dL 3.5-5.7 [facility] Basic Metabolic Panelon Anion gap [Moles/Vol] 7.1 mmol/L Normal 6.0-15.0 [facility] Comment on above: Order Comment: Diagn osis: D64.9, I48.0, E11.9, K90.81 Comment: [id number], ALYSSIA MANRIQUEZ, , 01/23/23 Performed By: #### C BC, RETIC, B12, CK, ALB, A1C WTH eA, [id number], LIPID, BMP #### [facility] [address] [place] [address] [place] #### CPEP #### [facility] , Calcium [Mass/Vol] 7.8 mg/dL Low 8.6-10.3 [facility] Comment on above: Order Comment: Diagn osis: D64.9, I48.0, E11.9, K90. Comment: [id number], DECLAN, RM112, HM, 01/23/23 Performed By: #### C BC, RETIC, B12, CK, ALB, A1C WTH eA, [id number], LIPID, BMP #### [facility] [address] [place] [address] #### CPEP #### [facility] , Chloride [Moles/Vol] 109 mmol/L High 98-107 [facility] Comment on above: Order Comment: Diagn osis: D64.9, I48.0, E11., Comment: [id number], DECLAN, RM112, , 01/23/23 Performed By: #### C BC, RETIC, B12, CK, ALB, A1C WTH eA, [id number], LIPID, BMP #### [facility] [address] [place] [address] #### CPEP #### [facility] , CO2 [Moles/Vol] 25.2 mmol/L Normal 21.0-31.0 [facility] Comment on above: Order Comment: Diagn osis: D64.9, I48.0, E11., K. Comment: [id number], DECLAN, RM112, HM, 01/23/23 Performed By: #### C BC, RETIC, B12, CK, ALB, A1C WTH eA, [id number], LIPID, BMP #### [facility] [address] [place] [address] [place] #### CPEP #### [facility] , Creatinine [Mass/Vol] 0.66 mg/dL Low 0.70-1.30 [facility] Comment on above: Order Comment: Diagn osis: D64.9, I48.0, E11.9, K90.81 Comment: [id number], DECLAN RMRobinson, , 01/23/23 Performed By: #### C BC, RETIC, B12, CK, ALB, A1C WTH eA, [id number], LIPID, BMP #### [facility] [address] [place] [address] #### CPEP #### [facility] , GFR/1.73 sq M.predicted MDRD (S/P/Bld) [Vol rate/Area] mL/min/{1.73_m2} [facility] Comment on above: Order Comment: Diagn osis: D64.9, I48.0, E11.9, K90.81 Comment: [id number], DECLAN ALYSSIA, , 01/23/23 Performed By: #### C BC, RETIC, B12, CK, ALB, A1C WTH eA, [id number], LIPID, BMP #### [facility] [address] [place] [address] #### CPEP #### [facility] , Glucose [Mass/Vol] 111 mg/dL High 70-100 [facility] Comment on above: Order Comment: Diagn osis: D64.9, I48.0, E11.9, K90.81 Comment: Teresita, DECLAN BRYONRobinson, , 01/23/23 Result Comment: [place] Glucose Reference Range is dependent on time and content of last meal. Glucose of more than 200 mg/dL in a nonstressed, ambulatory subject supports the diagnosis of Diabetes Mellitus. ADA recommended reference range Performed By: #### C BC, RETIC, B12, CK, ALB, A1C WTH eA, [id number], LIPID, BMP #### [facility] [address] [place] [address] [place] #### CPEP #### [facility] , Potassium [Moles/Vol] 4.3 mmol/L Normal 3.5-5.1 [facility] Comment on above: Order Comment: Diagn osis: D64.9, I48.0, E11.9, K90.81 Comment: [id number], OGONTZ, RM112, , 01/23/23 Performed By: #### C BC, RETIC, B12, CK, ALB, A1C WTH eA, [id number], LIPID, BMP #### [facility] [address] [place] [address] [place] #### CPEP #### [facility] , Sodium [Moles/Vol] 137 mmol/L Normal 136-145 [facility] Comment on above: Order Comment: Diagn osis: D64.9, I48.0, E11.9, K90.81 Comment: [id number], OGONTZ, RM112, , 01/23/23 Performed By: #### C BC, RETIC, B12, CK, ALB, A1C WTH eA, [id number], LIPID, BMP #### [facility] [address] [place] [address] #### CPEP #### [facility] , Urea nitrogen [Mass/Vol] 16 mg/dL Normal 7-25 [facility] Comment on above: Order Comment: Diagn osis: D64.9, I48.0, E11.9, K90.81 Comment: [id number], OGMIKHAILZ, RM112, , 01/23/23 Performed By: #### C BC, RETIC, B12, CK, ALB, A1C WTH eA, [id number], LIPID, BMP #### [facility] [address] [place] [address] #### CPEP #### [facility] , Basophils Auto (Bld) [#/Vol] Ordered By: Adriane Espitia on 01-27-2023 Basophils (Bld) [#/Vol] 0.0 10*3/uL 0.0-0.2 [facility] Basophils/100 WBC Auto (Bld) Ordered By: Adriane Espitia on 01-27-2023 Basophils/100 WBC (Bld) 0.5 % . [facility] C-Peptideon 01-27-2023 C-Peptide 1.4 ng/mL Normal 1.1-4.4 [facility] Comment on above: Order Comment: Diagn osis: E11.9, I10, E46, D64.9 Comment: [id number], DECLAN, RM112, , 02/06/23 Result Comment: C-Pe ptide reference interval is for fasting patients. Performed at: - [facility] [id number] [employer] Instructor: Silverio Mario PhD, Phone: [phone] PERFORMED BY: [place] [address] PATHOLOGIST RISK ASSESSMENT ANALYST ESTIVEN GENTILE M.D. Performed By: #### A LB, CBC, BMP #### [facility] [address] [place] [address] Calcium [Mass/volume] in Ser um or PlasmaOrdered By: Adriane Espitia on 01-27-2023 Calcium [Mass/Vol] 7.8 mg/dL 8.6-10.3 [facility] Carbon dioxide, total [Moles /volume] in Serum or PlasmaOrdered By: Adriane Espitia on 01-27-2023 CO2 [Moles/Vol] 25.2 mmol/L 21.0-31.0 [facility] Chloride [Moles/volume] in S brandi or PlasmaOrdered By: Adriane Espitia on 01-27-2023 Chloride [Moles/Vol] 109 mmol/L 98-107 [facility] Cholesterol [Mass/volume] in Serum or PlasmaOrdered By: Adriane Espitia on 01-27-2023 Cholesterol [Mass/Vol] 72 mg/dL 140-200 [facility] Comment on above: Chol less than 200 m g/dl low riskChol 201-239 mg/dl borderline riskChol 240 mg/dl and greater high risk Cholesterol in LDL Calc [Mas s/Vol]Ordered By: Adriane Espitia on 01-27-2023 Cholesterol in LDL [Mass/Vol] 40 mg/dL 0-100 [facility] Comment on above: LDL ATP III CLASSIFI CATIONLDL less than 100 mg/dL OptimalLDL 100-129 mg/dL Near or above optimalLDL 130-159 mg/dL Borderline highLDL 160-189 mg/dL HighLDL greater than 189 mg/dL Very high Cholesterol in VLDL Calc [Ma ss/Vol]Ordered By: Adriane Espitia on 01-27-2023 Cholesterol in VLDL [Mass/Vol] 10 mg/dL [facility] Complete Blood Count Auto Di ffon 01-27-2023 Basophils (Bld) [#/Vol] 0.0 10*3/uL Normal 0.0-0.2 [facility] Comment on above: Order Comment: Diagn osis: D64.9, I48.0, E11.9, K90.81 Comment: [id number], OGONTZ, RM112, , 01/23/23 Performed By: #### C BC, RETIC, B12, CK, ALB, A1C WTH eA, [id number], LIPID, BMP #### [facility] [address] [place] [address] #### CPEP #### [facility] , Basophils/100 WBC (Bld) 0.5 % Normal . [facility] Comment on above: Order Comment: Diagn osis: D64.9, I48.0, E11.9, K90.81 Comment: [id number], OGONTZ, RM112, , 01/23/23 Performed By: #### C BC, RETIC, B12, CK, ALB, A1C WTH eA, [id number], LIPID, BMP #### [facility] [address] [place] [address] #### CPEP #### [facility] , Eosinophils (Bld) [#/Vol] 0.1 10*3/uL Normal 0.0-0.45 [facility] Comment on above: Order Comment: Diagn osis: D64.9, I48.0, E11.9, K90.81 Comment: [id number], OGONTZ, RM112, , 01/23/23 Performed By: #### C BC, RETIC, B12, CK, ALB, A1C WTH eA, [id number], LIPID, BMP #### [facility] [address] [place] [address] [place] #### CPEP #### [facility] , Eosinophils/100 WBC (Bld) 3.7 % Normal . [facility] Comment on above: Order Comment: Diagn osis: D64.9, I48.0, E11.9, K90.81 Comment: [id number], OGMIKHAILZ, RM112, , 01/23/23 Performed By: #### C BC, RETIC, B12, CK, ALB, A1C WTH eA, [id number], LIPID, BMP #### [address] #### CPEP #### [facility] , Erythrocyte distribution width (RBC) [Ratio] 14.7 % Normal 12.0-14.8 [facility] Comment on above: Order Comment: Diagn osis: D64.9, I48.0, E11.9, K90.81 Comment: [id number], OGMIKHAILZ, RM112, , 01/23/23 Performed By: #### C BC, RETIC, B12, CK, ALB, A1C WTH eA, [id number], LIPID, BMP #### [address] #### CPEP #### [facility] , Hematocrit (Bld) [Volume fraction] 27.4 % Low 38.8-50.0 [facility] Comment on above: Order Comment: Diagn osis: 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.9, I48.0, E11.9, K90.81 Comment: [id number], OGMIKHAILZ, RM112, , 01/23/23 Performed By: #### C BC, RETIC, B12, CK, ALB, A1C WTH eA, [id number], LIPID, BMP #### [address] #### CPEP #### [facility] , Hemoglobin (Bld) [Mass/Vol] 9.1 g/dL Low 13.0-17.0 [facility] Comment on above: Order Comment: Diagn osis: D64.9, I48.0, E11.9, K90.81 Comment: [id number], OGONTZ, RM112, , 01/23/23 Performed By: #### C BC, RETIC, B12, CK, ALB, A1C WTH eA, [id number], LIPID, BMP #### [address] #### CPEP #### [facility] , Lymphocytes (Bld) [#/Vol] 1.1 10*3/uL Normal 1.00-4.8 [facility] Comment on above: Order Comment: Diagn osis: D64.9, I48.0, E11.9, K90.81 Comment: [id number], OGONTZ, RM112, HM, 01/23/23 Performed By: #### C BC, RETIC, B12, CK, ALB, A1C WTH eA, [id number], LIPID, BMP #### [address] #### CPEP #### [facility] , Lymphocytes/100 WBC (Bld) 27.2 % Normal . [facility] Comment on above: Order Comment: Diagn osis: D64.9, I48.0, E11.9, K90.81 Comment: [id number], OGONTZ, RM112, HM, 01/23/23 Performed By: #### C BC, RETIC, B12, CK, ALB, A1C WTH eA, [id number], LIPID, BMP #### [address] #### CPEP #### [facility] , MCH (RBC) [Entitic mass] 31.7 pg Normal 27.5-35.2 [facility] Comment on above: Order Comment: Diagn osis: D64.9, I48.0, E11.9, K90.81 Comment: [id number], OGONTZ, RM112, HM, 01/23/23 Performed By: #### C BC, RETIC, B12, CK, ALB, A1C WTH eA, [id number], LIPID, BMP #### [address] #### CPEP #### [facility] , MCV (RBC) [Entitic vol] 95.3 fL Normal 83.5-101 [facility] Comment on above: Order Comment: Diagn osis: D64.9, I48.0, E11.9, K90.81 Comment: [id number], OGMIKHAILZ, RM112, , 01/23/23 Performed By: #### C BC, RETIC, B12, CK, ALB, A1C WTH eA, [id number], LIPID, BMP #### [facility] [address] [place] [address] #### CPEP #### [facility] , Mean Corpuscular HGB Conc 33.3 g/dL Normal 32.5-35.6 [facility] Comment on above: Order Comment: Diagn osis: D64.9, I48.0, E11., K. Comment: [id number], DECLAN, RM112, , 01/23/23 Performed By: #### C BC, RETIC, B12, CK, ALB, A1C WTH eA, [id number], LIPID, BMP #### [address] #### CPEP #### [facility] , Monocytes (Bld) [#/Vol] 0.4 10*3/uL Normal 0.0-0.8 [facility] Comment on above: Order Comment: Diagn osis: D64.9, I48.0, E11.9, K90.81 Comment: [id number], OGMIKHAILZ, RM112, , 01/23/23 Performed By: #### C BC, RETIC, B12, CK, ALB, A1C WTH eA, [id number], LIPID, BMP #### [facility] [address] [place] [address] [place] #### CPEP #### [facility] , Monocytes/100 WBC (Bld) 10.1 % Normal . [facility] Comment on above: Order Comment: Diagn osis: D64.9, I48.0, E11.9, K90.81 Comment: [id number], OGONTZ, RM112, , 01/23/23 Performed By: #### C BC, RETIC, B12, CK, ALB, A1C WTH eA, [id number], LIPID, BMP #### [address] #### CPEP #### [facility] , Neutrophils (Bld) [#/Vol] 2.3 10*3/uL Normal 1.8-7.7 [facility] Comment on above: Order Comment: Diagn osis: D64.9, I48.0, E11.9, K90.81 Comment: [id number], OGMIKHAILZ, RM112, HM, 01/23/23 Performed By: #### C BC, RETIC, B12, CK, ALB, A1C WTH eA, [id number], LIPID, BMP #### [address] #### CPEP #### [facility] , Neutrophils/100 WBC (Bld) 58.5 % Normal . [facility] Comment on above: Order Comment: Diagn osis: D64.9, I48.0, E11.9, K90.81 Comment: [id number], DECLAN, RM112, , 01/23/23 Performed By: #### C BC, RETIC, B12, CK, ALB, A1C WTH eA, [id number], LIPID, BMP #### [facility] [address] [place] [address] #### CPEP #### [facility] , NRBC% 0.2 /100{WBC} Normal 0-0.5 [facility] Comment on above: Order Comment: Diagn osis: D64.9, I48.0, E11.9, K90.81 Comment: [id number], BLADIMIRZ, RM112, , 01/23/23 Performed By: #### C BC, RETIC, B12, CK, ALB, A1C WTH eA, [id number], LIPID, BMP #### [address] #### CPEP #### [facility] , Platelet mean volume (Bld) [Entitic vol] 7.0 fL Normal 6.6-10.1 [facility] Comment on above: Order Comment: Diagn osis: D64.9, I48.0, E11.9, K90.81 Comment: [id number], OGONTZ, RM112, HM, 01/23/23 Performed By: #### C BC, RETIC, B12, CK, ALB, A1C WTH eA, [id number], LIPID, BMP #### [facility] [address] [place] [address] #### CPEP #### [facility] , Platelets (Bld) [#/Vol] 302 10*3/uL Normal 150-450 [facility] Comment on above: Order Comment: Diagn osis: D64.9, I48.0, E11.9, K90.81 Comment: [id number], OGONTZ, RM112, HM, 01/23/23 Performed By: #### C BC, RETIC, B12, CK, ALB, A1C WTH eA, [id number], LIPID, BMP #### [facility] [address] [place] [address] #### CPEP #### [facility] , RBC (Bld) [#/Vol] 2.88 10*6/uL Low 3.90-5.60 [facility] Comment on above: Order Comment: Diagn osis: D64.9, I48.0, E11.9, K90.81 Comment: [id number], OGONTZ, RM112, HM, 01/23/23 Performed By: #### C BC, RETIC, B12, CK, ALB, A1C WTH eA, [id number], LIPID, BMP #### [facility] [address] [place] [address] [place] #### CPEP #### [facility] , WBC (Bld) [#/Vol] 4.0 10*3/uL Low 4.1-10.5 [facility] Comment on above: Order Comment: Diagn osis: D64.9, I48.0, E11.9, K90.81 Comment: [id number], OGMIKHAILZ, RM112, HM, 01/23/23 Performed By: #### C BC, RETIC, B12, CK, ALB, A1C WTH eA, [id number], LIPID, BMP #### [facility] [address] [place] [address] #### CPEP #### [facility] , Creatine Kinaseon 01-27-2023 CK [Catalytic activity/Vol] 59 U/L Normal [facility] Comment on above: Order Comment: Diagn osis: D64.9, I48.0, E11.9, K90.81 Comment: [id number], OGONTZ, RM112, HM, 01/23/23 Result Comment: PERF ORMED BY: [place] [address] PATHOLOGIST RISK ASSESSMENT ANALYST ESTIVEN GENTILE M.D. Performed By: #### C BC, RETIC, B12, CK, ALB, A1C WTH eA, [id number], LIPID, BMP #### [address] #### CPEP #### [facility] , Creatine kinase [Enzymatic a ctivity/volume] in Serum or PlasmaOrdered By: Adriane Espitia on 01-27-2023 CK [Catalytic activity/Vol] 59 U/L [facility] Creatinine [Mass/volume] in Serum or PlasmaOrdered By: Adriane Espitia on 01-27-2023 Creatinine [Mass/Vol] 0.66 mg/dL 0.70-1.30 [facility] Eosinophils Auto (Bld) [#/Vo l]Ordered By: Adriane Espitia on 01-27-2023 Eosinophils (Bld) [#/Vol] 0.1 10*3/uL 0.0-0.45 [facility] Eosinophils/100 WBC Auto (Bl d)Ordered By: Adriane Espitia on 01-27-2023 Eosinophils/100 WBC (Bld) 3.7 % . [facility] Erythrocyte distribution wid th Auto (RBC) [Ratio]Ordered By: Adriane Espitia on 01-27-2023 Erythrocyte distribution width (RBC) [Ratio] 14.7 % 12.0-14.8 [facility] Glucose [Mass/volume] in Ser um or PlasmaOrdered By: Adriane Espitia on 01-27-2023 Glucose [Mass/Vol] 111 mg/dL 70-100 [facility] Comment on above: ADA recommended refe [...] from glycated hemoglobin (Bld) [Mass/Vol] 151 mg/dL [facility] Hematocrit Auto (Bld) [Volum e fraction]Ordered By: Adriane Espitia on 01-27-2023 Hematocrit (Bld) [Volume fraction] 27.4 % 38.8-50.0 [facility] Hemoglobin A1c percentageOrd ered By: Adriane Espitia on 01-27-2023 HbA1c (Bld) [Mass fraction] 6.9 % 4.3-5.6 [facility] Comment on above: Increased risk for d iabetes: 5.7 - 6.4diabetes: >6.4glycemic control for adults with diabetes: <7.0 Hemoglobin [Mass/volume] in BloodOrdered By: Adriane Espitia on 01-27-2023 Hemoglobin (Bld) [Mass/Vol] 9.1 g/dL 13.0-17.0 [facility] Leukocytes [#/volume] correc missael for nucleated erythrocytes in Blood by Automated counOrdered By: Adriane Espitia on 01-27-2023 WBC corrected for nucl RBC Auto (Bld) [#/Vol] 4.0 10*3/uL 4.1-10.5 [facility] Lipid Panelon 01-27-2023 Cholesterol [Mass/Vol] 72 mg/dL Low 140-200 [facility] Comment on above: Order Comment: Diagn osis: D64.9, I48.0, E11.9, K90.81 Comment: Teresita, OGNICOLASBRYONRobnison, , 01/23/23 Result Comment: Chol less than 200 mg/dl low risk Chol 201-239 mg/dl borderline risk Chol 240 mg/dl and greater high risk Performed By: #### C BC, RETIC, B12, CK, ALB, A1C WTH eA, [id number], LIPID, BMP #### [facility] [address] [place] [address] #### CPEP #### [facility] , Cholesterol in HDL [Mass/Vol] 22 mg/dL Low 23-92 [facility] Comment on above: Order Comment: Diagn osis: D64.9, I48.0, E11.9, K90.81 Comment: [id number], DECLAN Robinson, , 01/23/23 Result Comment: HDL CHOL ATP-III CLASSIFICATION Cardiovascular Risk HDL > or equal to 60 mg/dL LOW HDL < 40 mg/dL HIGH Performed By: #### C BC, RETIC, B12, CK, ALB, A1C WTH eA, [id number], LIPID, BMP #### [address] #### CPEP #### [facility] , Cholesterol.total/Cho lesterol in HDL [Mass ratio] 3.3 {ratio} Normal <5.0 [facility] Comment on above: Order Comment: Diagn osis: D64.9, I48.0, E11.9, K90.81 Comment: Teresita, ALYSSIA MANRIQUEZ, , 01/23/23 Performed By: #### C BC, RETIC, B12, CK, ALB, A1C WTH eA, [id number], LIPID, BMP #### [facility] [address] [place] [address] [place] #### CPEP #### [facility] , LDL Cholesterol,Calculate d 40 mg/dL Normal 0-100 [facility] Comment on above: Order Comment: Diagn osis: D64.9, I48.0, E11.9, K90.81 Comment: [id number], DECLAN RMRobinson, , 01/23/23 Result Comment: LDL ATP III CLASSIFICATION LDL less than 100 mg/dL Optimal LDL 100-129 mg/dL Near or above optimal LDL 130-159 mg/dL Borderline high LDL 160-189 mg/dL High LDL greater than 189 mg/dL Very high Performed By: #### C BC, RETIC, B12, CK, ALB, A1C WTH eA, [id number], LIPID, BMP #### [address] #### CPEP #### [facility] , Triglyceride w/Reflex 52 mg/dL Normal 0-149 [facility] Comment on above: Order Comment: Diagn osis: D64.9, I48.0, E11.9, K90.81 Comment: [id number][facility] Result Comment: TRIG ATP III CLASSIFICATION TRIG less than 150 mg/dL Normal TRIG 150-199 mg/dL Borderline high TRIG 200-500 mg/dL High TRIG greater than 500 mg/dL Very high Standard traceable to the Center for Disease Conrtrol and Prevention (CDC) test method. Performed By: #### C BC, RETIC, B12, CK, ALB, A1C WTH eA, [id number], LIPID, BMP #### [address] #### CPEP #### [facility] , VLDL CHOLESTEROL 10 mg/dL Normal [facility] Comment on above: Order Comment: Diagn osis: D64.9, I48.0, E11.9, K90.81 Comment: [id number], ALYSSIA MANRIQUEZ, , 01/23/23 Performed By: #### C BC, RETIC, B12, CK, ALB, A1C WTH eA, [id number], LIPID, BMP #### [address] #### CPEP #### [facility] , Lymphocytes Auto (Bld) [#/Vo l]Ordered By: Adriane Espitia on 01-27-2023 Lymphocytes (Bld) [#/Vol] 1.1 10*3/uL 1.00-4.8 [facility] Lymphocytes/100 WBC Auto (Bl d)Ordered By: Adriane Espitia on 01-27-2023 Lymphocytes/100 WBC (Bld) 27.2 % . [facility] MCH Auto (RBC) [Entitic mass ]Ordered By: Adriane Espitia on 01-27-2023 MCH (RBC) [Entitic mass] 31.7 pg 27.5-35.2 [facility] MCHC Auto (RBC) [Mass/Vol]Or dered By: Adriane Espitia on 01-27-2023 MCHC (RBC) [Mass/Vol] 33.3 g/dL 32.5-35.6 [facility] MCV Auto (RBC) [Entitic vol] Ordered By: Adriane Espitia on 01-27-2023 MCV (RBC) [Entitic vol] 95.3 fL 83.5-101 [facility] Monocytes Auto (Bld) [#/Vol] Ordered By: Adriane Espitia on 01-27-2023 Monocytes (Bld) [#/Vol] 0.4 10*3/uL 0.0-0.8 [facility] Monocytes/100 WBC Auto (Bld) Ordered By: Adriane Espitia on 01-27-2023 Monocytes/100 WBC (Bld) 10.1 % . [facility] Neutrophils Auto (Bld) [#/Vo l]Ordered By: Adriane Espitia on 01-27-2023 Neutrophils (Bld) [#/Vol] 2.3 10*3/uL 1.8-7.7 [facility] Neutrophils/100 WBC Auto (Bl d)Ordered By: Adriane Espitia on 01-27-2023 Neutrophils/100 WBC (Bld) 58.5 % . [facility] No Panel InformationOrdered By: Adriane Espitia on 01-27-2023 C-Peptide 1.4 ng/mL 1.1-4.4 [facility] Comment on above: C-Peptide reference interval is for fasting patients.Performed at: [facility] [id number] Director: Silverio Mario PhD, Phone: [phone] Estimated GFR (CKD-EPI) > 60.0 mL/Min [facility] Creatinine Clearance (Chem N/A [facility] Nucleated erythrocytes [Pres ence] in Blood by Automated countOrdered By: Adriane Espitia on 01-27-2023 Nucleated RBC Auto Ql (Bld) 0.2 /100{WBC} 0-0.5 [facility] Platelet mean volume Auto (B ld) [Entitic vol]Ordered By: Adriane Espitia on 01-27-2023 Platelet mean volume (Bld) [Entitic vol] 7.0 fL 6.6-10.1 [facility] Platelets Auto (Bld) [#/Vol] Ordered By: Adriane Espitia on 01-27-2023 Platelets (Bld) [#/Vol] 302 10*3/uL 150-450 [facility] Potassium [Moles/volume] in Serum or PlasmaOrdered By: Adriane Espitia on 01-27-2023 Potassium [Moles/Vol] 4.3 mmol/L 3.5-5.1 [facility] RBC Auto (Bld) [#/Vol]Ordere d By: Adriane Espitia on 01-27-2023 RBC (Bld) [#/Vol] 2.88 10*6/uL 3.90-5.60 [facility] Reticulocyte Counton 023 Reticulocyte Number 0.035 10*6/uL Normal 0.024-0 .08 4 [facility] Comment on above: Order Comment: Diagn osis: D64.9, I48.0, E11.9, K90.81 Comment: [id number], DECLAN, [id number], , 01/23/23 Result Comment: PERF ORMED BY: [place] [address] PATHOLOGIST RISK ASSESSMENT ANALYST ESTIVEN GENTILE M.D. Performed By: #### C BC, RETIC, B12, CK, ALB, A1C WTH eA, [id number], LIPID, BMP #### [facility] [address] [place] [address] #### CPEP #### [facility] , Reticulocyte Percent 1.2 % Normal 0.5-1.5 [facility] Comment on above: Order Comment: Diagn osis: D64.9, I48.0, E11.9, K90.81 Comment: [id number], DECLAN, [id number], , 01/23/23 Performed By: #### C BC, RETIC, B12, CK, ALB, A1C WTH eA, [id number], LIPID, BMP #### [facility] [address] #### CPEP #### [facility] , Reticulocytes/100 RBC Auto ( Bld)Ordered By: Adriane Espitia on 01-27-2023 Reticulocytes/100 RBC (Bld) 1.2 % 0.5-1.5 [facility] Serum or plasma anion gap de terminationOrdered By: Adriane Espitia on 01-27-2023 Anion gap [Moles/Vol] 7.1 mmol/L 6.0-15.0 [facility] Serum or plasma high density lipoprotein (HDL) cholesterol measurementOrdered By: Adriane Espitia on 01-27-2023 Cholesterol in HDL [Mass/Vol] 22 mg/dL 23-92 [facility] Comment on above: HDL CHOL ATP-III CLA SSIFICATION Cardiovascular RiskHDL > or equal to 60 mg/dL LOWHDL < 40 mg/dL HIGH Serum or plasma total choles terol/high density lipoprotein (HDL) cholesterol mass ratOrdered By: Adriane Espitia on 01-27-2023 Cholesterol.total/Cho lesterol in HDL [Mass ratio] 3.3 {ratio} <5.0 [facility] Sodium [Moles/volume] in Ser um or PlasmaOrdered By: Adriane Espitia on 01-27-2023 Sodium [Moles/Vol] 137 mmol/L 136-145 [facility] Triglyceride [Mass/volume] i n Serum or PlasmaOrdered By: Adriane Espitia on 01-27-2023 Triglyceride [Mass/Vol] 52 mg/dL 0-149 [facility] Comment on above: TRIG ATP III CLASSIF ICATIONTRIG less than 150 mg/dL NormalTRIG 150-199 mg/dL Borderline highTRIG 200-500 mg/dL High TRIG greater than 500 mg/dL Very highStandard traceable to the Center for Disease Conrtrol and Prevention (CDC) test method. Urea nitrogen [Mass/volume] in Serum or PlasmaOrdered By: Adriane Espitia on 01-27-2023 Urea nitrogen [Mass/Vol] 16 mg/dL 7-25 [facility] Vitamin B12on 01-27-2023 Cobalamin (Vitamin B12) [Mass/Vol] 498 pg/mL Normal 180-914 [facility] Comment on above: Order Comment: Diagn osis: E11.9, I10, E46, D64.9 Comment: [id number], DECLAN, [place], , 02/06/23 Performed By: #### A LB, CBC, BMP #### [facility] [address] Vitamin B12 ser/plasOrdered By: Adriane Espitia on 01-27-2023 Cobalamin (Vitamin B12) [Mass/Vol] 498 pg/mL 180-914 [facility] Vitamin D 25 Hydroxy Totalon 01-27-2023 Vitamin D 25 Hydroxy Total < 7.0 Low 30-100 [facility] Comment on above: Order Comment: Diagn osis: E11.9, I10, E46, D64.9 Comment: [id number], DECLAN, [facility], , 02/06/23 Result Comment: TAYLER MIN D STATUS 25(OH)VITAMIN D RANGE (ng/mL) Deficient <20 Insufficient 20 to <30 Sufficient 30 to 100 Reference: Janny MF,Carmen NC, Brant CAMPUZANO, et al. Evaluation,treatment, and prevention of vitamin D deficiency; an Endocrine Society clinical practice guideline. JCEM. 2010; 96(7):1911-30. PERFORMED BY: [place] [address] PATHOLOGIST RISK ASSESSMENT ANALYST ESTIVEN GENTILE M.D. Performed By: #### A LB, CBC, BMP #### [facility] [address] [place] [address] Vitamin D+Metabolites [Mass/ volume] in Serum or PlasmaOrdered By: Adriane Espitia on 01-27-2023 Vitamin D+Metabolites [Mass/Vol] < 7.0 ng/mL 30-100 [facility] Comment on above: VITAMIN D STATUS 25( [place])VITAMIN D RANGE (ng/mL) Deficient <20 Insufficient 20 to <30Sufficient 30 to 100Reference: Janny MF,Carmen LACEY, Brant CAMPUZANO, et al. Evaluation,treatment, and prevention of vitamin D deficiency; an Endocrine Society clinical practice guideline. JCEM. 2010; 96(7):1911-30. 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 Vitamin D3 1.25 MG (45784 UT) Oral CapsuleTAKE 1 CAPSULE Daily Xanax [...] Recorded: 16Sep2022 11:33AM Heart Rate78, L Radial Ixayfvyh191, LUE, Sitting Zewzwgcdt16, LUE, Sitting Height5 ft 8 in Ldidxf540 lb BMI Roqrvwugvs03.05 kg/m2 BSA Calculated1.78 Tobacco Useb) No PHQ-2 [...] auscultation. Cardiovascul (more content not included)... Normal [facility] BNPon 07-12-2022 Natriuretic peptide B (Bld) [Mass/Vol] 3610.0 pg/mL Critically high <=900.0 [facility] Comment on above: Performed By: #### P T, PTT #### [facility] [address] [address] [address] Mel Barrientos CBC AUTO DIFFon 07-12-2022 BASO # 0.0 103/ul Normal 0.0-0.1 [facility] Comment on above: Performed By: #### C BC #### [facility] [address] [address] [address] Mel Barrientos Basophils/100 WBC (Bld) 0.4 % Normal 0.2-2.0 [facility] Comment on above: Performed By: #### C BC #### [facility] [address] [place] [address] Dr. Mel Barrientos EO # 0.1 103/ul Normal 0.0-0.7 [facility] Comment on above: Performed By: #### C BC #### [facility] [address] [place] [address] Dr. Mel Barrientos Eosinophils/100 WBC (Bld) 3.5 % Normal 0.9-7.0 [facility] Comment on above: Performed By: #### C BC #### [facility] [address] [place] [address] Dr. eMl Barrientos Erythrocyte distribution width (RBC) [Ratio] 12.9 % Normal 11.0-15.0 [facility] Comment on above: Performed By: #### C BC #### [facility] [address] [place] [address] Dr. Mel Barrientos Hematocrit (Bld) [Volume fraction] 25.4 % Critically low 42.0-54.0 [facility] Comment on above: Performed By: #### C BC #### [facility] [address] [place] [address] Dr. Mel Barrientos Hemoglobin (Bld) [Mass/Vol] 8.3 g/dL Critically low 14.0-18.0 [facility] Comment on above: Performed By: #### C BC #### [facility] [address] [place] [address] Dr. Mel Barrientos IG # 0.00 10e3/ul Normal 0.00-0.03 [facility] Comment on above: Performed By: #### C BC #### [facility] [address] [place] [address] Dr. Mel Barrientos IG % 0.0 % Normal 0.0-0.5 [facility] Comment on above: Performed By: #### C BC #### [facility] [address] [place] [address] Dr. Mel Barrientos LYMPH # 1.0 103/ul Critically low 1.2-3.8 [facility] Comment on above: Performed By: #### C BC #### [facility] [address] [place] [address] Dr. Mel Barrientos Lymphocytes/100 WBC (Bld) 35.0 % Normal 20.5-60.0 [facility] Comment on above: Performed By: #### C BC #### [facility] [address] [place] [address] Dr. Mel Barrientos MANUAL DIFF REQ NO Normal [facility] Comment on above: Performed By: #### C BC #### [facility] [address] [place] [address] Dr. Mel Barrientos MCH (RBC) [Entitic mass] 33.5 pg Normal 25.9-34.0 [facility] Comment on above: Performed By: #### C BC #### [facility] [address] [place] [address] Dr. Mel Barrientos MCHC (RBC) [Mass/Vol] 32.7 g/dL Normal 29.9-35.2 [facility] Comment on above: Performed By: #### C BC #### [facility] [address] [place] [address] Dr. Mel Barrientos MCV (RBC) [Entitic vol] 102.4 fL Critically high 80.0-94.0 [facility] Comment on above: Performed By: #### C BC #### [facility] [address] [place] [address] Dr. Mel Barrientos MONO # 0.5 103/ul Normal 0.3-0.8 [facility] Comment on above: Performed By: #### C BC #### [facility] [address] [place] [address] Dr. Mel Barrientos Monocytes/100 WBC (Bld) 18.7 % Critically high 1.7-12.0 [facility] Comment on above: Performed By: #### C BC #### [facility] [address] [place] [address] Dr. Mel Barrientos NEUT # 1.2 103/ul Critically low 1.4-6.5 [facility] Comment on above: Performed By: #### C BC #### [facility] [address] [place] [address] Dr. Mel Barrientos Neutrophils/100 WBC (Bld) 42.4 % Critically low 43.0-75.0 [facility] Comment on above: Performed By: #### C BC #### [facility] [address] [place] [address] Dr. Mel Barrientos Platelet mean volume (Bld) [Entitic vol] 8.6 fL Critically low 9.5-13.5 [facility] Comment on above: Performed By: #### C BC #### [facility] [address] [place] [address] Dr. Mel Barrientos PLT 208 103/ul Normal 150-450 [facility] Comment on above: Performed By: #### C BC #### [facility] [address] [place] [address] Dr. Mel Barrientos RBC 2.48 106/ul Critically low 4.70-6.10 [facility] Comment on above: Performed By: #### C BC #### [facility] [address] [place] [address] Dr. Mel Barrientos WBC 2.8 103/ul Critically low 4.0-11.0 [facility] Comment on above: Performed By: #### C BC #### [facility] [address] [place] [address] Dr. Mel Barrientos LIPID PROFILEon 07-12-2022 CHOL-HDL RATIO NORM SEE BELOW Normal [facility] Comment on above: Result Comment: 3.3 - 4.4 LOW RISK 4.4 - 7.1 AVERAGE RISK 7.1 - 11.0 MODERATE RISK >11.0 HIGH RISK Performed By: #### P T, PTT #### [facility] [address] [place] [address] Dr. Mel Barrientos Cholesterol [Mass/Vol] 74 mg/dL Normal <=200 [facility] Comment on above: Performed By: #### P T, PTT #### [facility] [address] [place] [address] Dr. Mel Barrientos Cholesterol in HDL [Mass/Vol] 24 mg/dL Critically low 40-60 [facility] Comment on above: Performed By: #### P T, PTT #### [facility] [address] [address] [address] Mel Barrientos Cholesterol in LDL [Mass/Vol] 36.8 mg/dL Normal [facility] Comment on above: Performed By: #### P T, PTT #### [facility] [address] [place] [address] Dr. Mel Barrientos Cholesterol.total/Cho lesterol in HDL [Mass ratio] 3.1 {ratio} Normal [facility] Comment on above: Performed By: #### P T, PTT #### [facility] [address] [address] [address] Mel Barrientos HDL NORMAL > or = 60 mg/dl - LO W CARDIOVASCULAR RISK <40 mg/dl - HIGH CARDIOVASCULAR RISK Normal [facility] Comment on above: Performed By: #### P T, PTT #### [facility] [address] [place] [address] Dr. Mel Barrientos LDL CALC NORMAL SEE BELOW Normal [facility] Comment on above: Result Comment: <100 mg/dl OPTIMAL 100 - 129 mg/dl NEAR OR ABOVE OPTIMAL 130 - 159 mg/dl BORDERLINE HIGH 160 - 189 mg/dl HIGH >190 mg/dl VERY HIGH Performed By: #### P T, PTT #### [facility] [address] [place] [address] Dr. Mel Barrientos Triglyceride [Mass/Vol] 66 mg/dL Normal <=150 [facility] Comment on above: Performed By: #### P T, PTT #### [facility] [address] [place] [address] Dr. Mel Barrientos VLDL CALC 13.2 mg/dL Normal [facility] Comment on above: Performed By: #### P T, PTT #### [facility] [address] [place] [address] Dr. Mel Barrientos PROF 14(COMP METB)on 023 Albumin [Mass/Vol] 2.7 g/dL Critically low 3.4-5.0 [facility] Comment on above: Performed By: #### P T, PTT #### [facility] [address] [place] [address] Dr. Mel Barrientos Albumin/Globulin [Mass ratio] 0.7 {ratio} Normal [facility] Comment on above: Performed By: #### P T, PTT #### [facility] [address] [place] [address] Dr. Mel Barrientos ALP [Catalytic activity/Vol] 128 U/L Critically high 46-116 [facility] Comment on above: Performed By: #### P T, PTT #### [facility] [address] [place] [address] Dr. Mel Barrientos ALT [Catalytic activity/Vol] 37 U/L Normal 16-63 [facility] Comment on above: Performed By: #### P T, PTT #### [facility] [address] [place] [address] Dr. Mel Barrientos Anion gap [Moles/Vol] 11.6 mmol/L Normal [facility] Comment on above: Performed By: #### P T, PTT #### [facility] [address] [place] [address] Dr. Mel Barrientos AST [Catalytic activity/Vol] 24 U/L Normal 15-37 [facility] Comment on above: Performed By: #### P T, PTT #### [facility] [address] [place] [address] Dr. Mel Barrientos Bilirubin [Mass/Vol] 0.3 mg/dL Normal 0.2-1.0 [facility] Comment on above: Performed By: #### P T, PTT #### [facility] [address] [place] [address] Dr. Mel Barrientos Calcium [Mass/Vol] 8.4 mg/dL Critically low 8.5-10.1 [facility] Comment on above: Performed By: #### P T, PTT #### [facility] [address] [place] [address] Dr. Mel Barrientos Chloride [Moles/Vol] 100 mmol/L Normal 98-107 [facility] Comment on above: Performed By: #### P T, PTT #### [facility] [address] [place] [address] Dr. Mel Barrientos CO2 [Moles/Vol] 24.5 mmol/L Normal 21.0-32.0 [facility] Comment on above: Performed By: #### P T, PTT #### [facility] [address] [place] [address] Dr. Mel Barrientos Creatinine [Mass/Vol] 0.80 mg/dL Normal 0.70-1.30 [facility] Comment on above: Performed By: #### P T, PTT #### [facility] [address] [place] [address] Dr. Mel Barrientos EGFR-AF EMIRATI >60 Normal >=60 [facility] Comment on above: Performed By: #### P T, PTT #### [facility] [address] [place] [address] Dr. Mel Barrientos EGFR-NON AF EMIRATI >60 Normal >=60 [facility] Comment on above: Performed By: #### P T, PTT #### [facility] [address] [place] [address] Dr. Mel Barrientos Globulin (S) [Mass/Vol] 3.8 g/dL Normal [facility] Comment on above: Performed By: #### P T, PTT #### [facility] [address] [place] [address] Dr. Mel Barrientos Glucose [Mass/Vol] 134 mg/dL Critically high 74-106 [facility] Comment on above: Performed By: #### P T, PTT #### [facility] [address] [place] [address] Dr. Mel Barrientos Potassium [Moles/Vol] 4.1 mmol/L Normal 3.5-5.1 [facility] Comment on above: Performed By: #### P T, PTT #### [facility] [address] [place] [address] Dr. Mel Barrientos Protein [Mass/Vol] 6.5 g/dL Normal 6.4-8.2 [facility] Comment on above: Performed By: #### P T, PTT #### [facility] [address] [place] [address] Dr. Mel Barrientos Sodium [Moles/Vol] 132 mmol/L Critically low 136-145 [facility] Comment on above: Performed By: #### P T, PTT #### [facility] [address] [place] [address] Dr. Mel Barrientos Urea nitrogen [Mass/Vol] 19.0 mg/dL Critically high 7.0-18.0 [facility] Comment on above: Performed By: #### P T, PTT #### [facility] [address] [place] [address] Dr. Mel Barrientos Urea nitrogen/Creatinine [Mass ratio] 23.8 mg/mg Normal [facility] Comment on above: Performed By: #### P T, PTT #### [facility] [address] [place] [address] Dr. Mel Barrientos T4on 07-12-2022 T4 [Mass/Vol] 5.90 ug/dL Normal 4.50-12.10 [facility] Comment on above: Performed By: #### P T, PTT #### [facility] [address] [place] [address] Dr. Mel Barrientos TSHon 07-12-2022 TSH 3.686 uIU/mL Normal 0.358-3.74 0 [facility] Comment on above: Performed By: #### P T, PTT #### [facility] [address] [place] [address] Dr. Mel Barrientos BNPon 07-11-2022 Natriuretic peptide B (Bld) [Mass/Vol] 1694.0 pg/mL Critically high <=900.0 [facility] Comment on above: Performed By: #### L IPID, CMP #### [facility] [address] [place] [address] Dr. Mel Barrientos CARDIAC SUSHILA 3-6on 3 CK [Catalytic activity/Vol] 139 U/L Normal 39-308 [facility] Comment on above: Performed By: #### C MREP #### [facility] [address] [place] [address] Dr. Mel Barrientos CK.MB [Mass/Vol] 1.99 ng/mL Normal <=3.60 [facility] Comment on above: Performed By: #### C MREP #### [facility] [address] [place] [address] Dr. Mel Barrientos HSTROP 6.9 pg/mL Normal 4.0-76.1 [facility] Comment on above: Result Comment: CUT- OFF POINTS HAVE BEEN ESTABLISHED BASED ON THE FOURTH UNIVERSAL DEFINITIONS OF MYOCARDIAL INFARCTION. THE UPPER REFERENCE LIMIT (URL) OF TROPONIN, DEFINED THE 99TH PERCENTILE OF cTnI DISTRIBUTION IN A REFERENCE POPULATION, HAS BEEN CONFIRMED THE DECISION THRESHOLD FOR WI DIAGNOSIS. Performed By: #### C MREP #### [facility] [address] [place] [address] Dr. Mel Barrientos CK [Catalytic activity/Vol] 127 U/L Normal 39-308 [facility] Comment on above: Performed By: #### P T, PTT #### [facility] [address] [place] [address] Dr. Mel Barrientos CK.MB [Mass/Vol] 2.30 ng/mL Normal <=3.60 [facility] Comment on above: Performed By: #### P T, PTT #### [facility] [address] [place] [address] Dr. Mel Barrientos HSTROP 6.3 pg/mL Normal 4.0-76.1 [facility] Comment on above: Result Comment: CUT- OFF POINTS HAVE BEEN ESTABLISHED BASED ON THE FOURTH UNIVERSAL DEFINITIONS OF MYOCARDIAL INFARCTION. THE UPPER REFERENCE LIMIT (URL) OF TROPONIN, DEFINED THE 99TH PERCENTILE OF cTnI DISTRIBUTION IN A REFERENCE POPULATION, HAS BEEN CONFIRMED THE DECISION THRESHOLD FOR WI DIAGNOSIS. Performed By: #### P T, PTT #### [facility] [address] [place] [address] Dr. Mel Barrientos CBC AUTO DIFFon 07-11-2022 BASO # 0.0 103/ul Normal 0.0-0.1 [facility] Comment on above: Performed By: #### C BC #### [facility] [address] [place] [address] Dr. Mel Barrientos Basophils/100 WBC (Bld) 0.3 % Normal 0.2-2.0 [facility] Comment on above: Performed By: #### C BC #### [facility] [address] [place] [address] Dr. Mel Barrientos EO # 0.1 103/ul Normal 0.0-0.7 [facility] Comment on above: Performed By: #### C BC #### [facility] [address] [place] [address] Dr. Mel Barrientos Eosinophils/100 WBC (Bld) 3.7 % Normal 0.9-7.0 [facility] Comment on above: Performed By: #### C BC #### [facility] [address] [place] [address] Dr. Mel Barrientos Erythrocyte distribution width (RBC) [Ratio] 13.3 % Normal 11.0-15.0 [facility] Comment on above: Performed By: #### C BC #### [facility] [address] [place] [address] Dr. Mel Barrientos Hematocrit (Bld) [Volume fraction] 31.7 % Critically low 42.0-54.0 [facility] Comment on above: Performed By: #### C BC #### [facility] [address] [place] [address] Dr. Mel Barrientos Hemoglobin (Bld) [Mass/Vol] 9.3 g/dL Critically low 14.0-18.0 [facility] Comment on above: Performed By: #### C BC #### [facility] [address] [place] [address] Dr. Mel Barrientos IG # 0.01 10e3/ul Normal 0.00-0.03 [facility] Comment on above: Performed By: #### C BC #### [facility] [address] [place] [address] Dr. Mel Barrientos IG % 0.3 % Normal 0.0-0.5 [facility] Comment on above: Performed By: #### C BC #### [facility] [address] [place] [address] Dr. Mel Barrientos LYMPH # 1.0 103/ul Critically low 1.2-3.8 [facility] Comment on above: Performed By: #### C BC #### [facility] [address] [address] [address] Mel Barrientos Lymphocytes/100 WBC (Bld) 26.1 % Normal 20.5-60.0 [facility] Comment on above: Performed By: #### C BC #### [facility] [address] [address] [address] Mel Barrientos MANUAL DIFF REQ NO Normal [facility] Comment on above: Performed By: #### C BC #### [facility] [address] [place] [address] Dr. Mel Barrientos MCH (RBC) [Entitic mass] 33.9 pg Normal 25.9-34.0 [facility] Comment on above: Performed By: #### C BC #### [facility] [address] [place] [address] Dr. eMl Barrientos MCHC (RBC) [Mass/Vol] 29.3 g/dL Critically low 29.9-35.2 [facility] Comment on above: Performed By: #### C BC #### [facility] [address] [place] [address] Dr. Mel Barrientos MCV (RBC) [Entitic vol] 115.7 fL Critically high 80.0-94.0 [facility] Comment on above: Performed By: #### C BC #### [facility] [address] [place] [address] Dr. Mel Barrientos MONO # 0.5 103/ul Normal 0.3-0.8 [facility] Comment on above: Performed By: #### C BC #### [facility] [address] [place] [address] Dr. Mel Barrientos Monocytes/100 WBC (Bld) 13.3 % Critically high 1.7-12.0 [facility] Comment on above: Performed By: #### C BC #### [facility] [address] [place] [address] Dr. Mel Barrientos NEUT # 2.1 103/ul Normal 1.4-6.5 [facility] Comment on above: Performed By: #### C BC #### [facility] [address] [place] [address] Dr. Mel Barrientos Neutrophils/100 WBC (Bld) 56.3 % Normal 43.0-75.0 [facility] Comment on above: Performed By: #### C BC #### [facility] [address] [place] [address] Dr. Mel Barrientos Platelet mean volume (Bld) [Entitic vol] 9.2 fL Critically low 9.5-13.5 [facility] Comment on above: Performed By: #### C BC #### [facility] [address] [place] [address] Dr. Mel Barrientos PLT 259 103/ul Normal 150-450 [facility] Comment on above: Performed By: #### C BC #### [facility] [address] [place] [address] Dr. Mel Barrientos RBC 2.74 106/ul Critically low 4.70-6.10 [facility] Comment on above: Performed By: #### C BC #### [facility] [address] [place] [address] Dr. Mel Barrientos WBC 3.8 103/ul Critically low 4.0-11.0 [facility] Comment on above: Performed By: #### C BC #### [facility] [address] [place] [address] Dr. Mel Barrientos Covid-19 PCR (CVDTB)on 06-29 SARS-CoV-2 (COVID-19) RNA NE+probe Ql (Unsp spec) Not detected Normal NOT DETECTED [facility] Comment on above: Result Comment: When [...] for this test is supported by the [place] [employer] and Human Service's declaration that [...] Performed By: #### P T, PTT #### [facility] [address] [place] [address] Dr. Mel Barrientos GLYCOHEMOGLOBIN A1Con 2022 ADA RECOMMENDATION SEE BELOW Normal [facility] Comment on above: Result Comment: ADA RECOMMENDED LIMIT 4.0 - 6.0 ADA THERAPEUTIC TARGET < 7.0 ACTION SUGGESTED > 7.0 Performed By: #### L IPID, CMP #### [facility] [address] [place] [address] Dr. Mel Barrientos Glucose [Mass/Vol] 128 mg/dL Normal [facility] Comment on above: Performed By: #### L IPID, CMP #### [facility] [address] [place] [address] Dr. Mel Barrientos HbA1c (Bld) [Mass fraction] 6.1 % Normal 4.5-6.2 [facility] Comment on above: Performed By: #### L IPID, CMP #### [facility] [address] [place] [address] Dr. Mel Barrientos LIPASEon 07-11-2022 Lipase [Catalytic activity/Vol] 10.0 U/L Critically low 73.0-393.0 [facility] Comment on above: Performed By: #### L IPID, CMP #### [facility] [address] [place] [address] Dr. Mel Barrientos PROF 14(COMP METB)on 023 Albumin [Mass/Vol] 3.1 g/dL Critically low 3.4-5.0 [facility] Comment on above: Performed By: #### L IPID, CMP #### [facility] [address] [place] [address] Dr. Mel Barrientos Albumin/Globulin [Mass ratio] 0.7 {ratio} Normal [facility] Comment on above: Performed By: #### L IPID, CMP #### [facility] [address] [address] [address] Mel Barrientos ALP [Catalytic activity/Vol] 143 U/L Critically high 46-116 [facility] Comment on above: Performed By: #### L IPID, CMP #### [facility] [address] [address] [address] Mel Barrientos ALT [Catalytic activity/Vol] 52 U/L Normal 16-63 [facility] Comment on above: Performed By: #### L IPID, CMP #### [facility] [address] [address] [address] Mel Barrientos Anion gap [Moles/Vol] 12.7 mmol/L Normal [facility] Comment on above: Performed By: #### L IPID, CMP #### [facility] [address] [place] [address] Dr. Mel Barrientos AST [Catalytic activity/Vol] 31 U/L Normal 15-37 [facility] Comment on above: Performed By: #### L IPID, CMP #### [facility] [address] [place] [address] Dr. Mel Barrientos Bilirubin [Mass/Vol] 0.3 mg/dL Normal 0.2-1.0 [facility] Comment on above: Performed By: #### L IPID, CMP #### [facility] [address] [place] [address] Dr. Mel Barrientos Calcium [Mass/Vol] 8.6 mg/dL Normal 8.5-10.1 [facility] Comment on above: Performed By: #### L IPID, CMP #### [facility] [address] [place] [address] Dr. Mel Barrientos Chloride [Moles/Vol] 103 mmol/L Normal 98-107 [facility] Comment on above: Performed By: #### L IPID, CMP #### [facility] [address] [address] [address] Mel Barrientos CO2 [Moles/Vol] 24.7 mmol/L Normal 21.0-32.0 [facility] Comment on above: Performed By: #### L IPID, CMP #### [facility] [address] [address] [address] Mel Barrientos Creatinine [Mass/Vol] 0.90 mg/dL Normal 0.70-1.30 [facility] Comment on above: Performed By: #### L IPID, CMP #### [facility] [address] [address] [address] Mel Barrientos EGFR-AF EMIRATI >60 Normal >=60 [facility] Comment on above: Performed By: #### L IPID, CMP #### [facility] [address] [address] [address] Mel Barrientos EGFR-NON AF EMIRATI >60 Normal >=60 [facility] Comment on above: Performed By: #### L IPID, CMP #### [facility] [address] [address] [address] Mel Barrientos Globulin (S) [Mass/Vol] 4.2 g/dL Normal [facility] Comment on above: Performed By: #### L IPID, CMP #### [facility] [address] [address] [address] Mel Barrientos Glucose [Mass/Vol] 204 mg/dL Critically high 74-106 [facility] Comment on above: Performed By: #### L IPID, CMP #### [facility] [address] [address] [address] Mel Barrientos Potassium [Moles/Vol] 4.4 mmol/L Normal 3.5-5.1 [facility] Comment on above: Performed By: #### L IPID, CMP #### [facility] [address] [address] [address] Mel Barrientos Protein [Mass/Vol] 7.3 g/dL Normal 6.4-8.2 [facility] Comment on above: Performed By: #### L IPID, CMP #### [facility] [address] [address] [address] Mel Barrientos Sodium [Moles/Vol] 136 mmol/L Normal 136-145 [facility] Comment on above: Performed By: #### L IPID, CMP #### [facility] [address] [place] [address] Dr. Mel Barrientos Urea nitrogen [Mass/Vol] 20.0 mg/dL Critically high 7.0-18.0 [facility] Comment on above: Performed By: #### L IPID, CMP #### [facility] [address] [place] [address] Dr. Mel Barrientos Urea nitrogen/Creatinine [Mass ratio] 22.2 mg/mg Normal [facility] Comment on above: Performed By: #### L IPID, CMP #### [facility] [address] [place] [address] Dr. Mel Barrientos PROTIMEon 07-11-2022 INR Coag (PPP) [Relative time] 1.14 {INR} Normal [facility] Comment on above: Performed By: #### P T, PTT #### [facility] [address] [place] [address] Dr. Mel Barrientos INR GUIDELINES SEE BELOW Normal [facility] Comment on above: Result Comment: JESSIKA RED INR: 2.0 - 3.0 CONDITIONS NOT LISTED BELOW 2.5 - 3.5 FOR PROSTHETIC HEART VALVE REPLACEMENT 2.5 - 3.5 RECURRENT THROMBOSIS Performed By: #### P T, PTT #### [facility] [address] [place] [address] Dr. Mel Barrientos PT Coag (PPP) [Time] 12.0 s Critically high 9.0-11.6 [facility] Comment on above: Performed By: #### P T, PTT #### [facility] [address] [place] [address] Dr. Mel Barrientos PTTon 07-11-2022 aPTT Coag (Bld) [Time] 30.8 s Normal 22.3-36.2 [facility] Comment on above: Performed By: #### P T, PTT #### [facility] [address] [place] [address] Dr. Mel Barrientos TROPONIN, HIGH SENSITIVITYon 07-11-2022 HSTROP 6.6 pg/mL Normal 4.0-76.1 [facility] Comment on above: Result Comment: CUT- OFF POINTS HAVE BEEN ESTABLISHED BASED ON THE FOURTH UNIVERSAL DEFINITIONS OF MYOCARDIAL INFARCTION. THE UPPER REFERENCE LIMIT (URL) OF TROPONIN, DEFINED THE 99TH PERCENTILE OF cTnI DISTRIBUTION IN A REFERENCE POPULATION, HAS BEEN CONFIRMED THE DECISION THRESHOLD FOR [place] DIAGNOSIS. Performed By: #### L IPID, CMP #### [facility] [address] [address] [address] Mel Barrientos XR CHEST 1 Von [...] MAR MOE Date: 2022-07-11 14:05 Normal [facility] CA 19-9 BLDon 07-04-2022 Cancer Ag 19-9 Qn 9.0 [arb'U]/mL NINF - 36.0 U/mL [facility] Comment on above: Cancer antigen 19-9 test is used as an aid in monitoring response to treatment or recurrence in patients with established pancreatic, hepatobiliary, or gastrointestinal malignancies. Clinical correlation is required. The CA 19-9 Antigen test was performed using the [employer] [place] [employer] DXI paramagnetic particle chemiluminescent immunoassay method. [...] any questions regarding this interpretation, please call [phone]. If you are unable to reach us at the number above, please feel free to contact [facility] at [phone]. DIVISION OF RADIOLOGY * * *Final Report* [...] performed concurrently and will be dictated separately. Human Resources Support Specialist (topogram) images: No additional findings. DIVISION OF RADIOLOGY Provider, Danette Figueroa [facility] - 07/04/2022 * * *Final Report* [...] performed concurrently and will be dictated separately. Human Resources Support Specialist (topogram) images: No additional findings. IMPRESSION IMPRESSION: [...] any questions regarding this interpretation, please call [phone]. If you are unable to reach us at the number above, please feel free to contact [facility] eRadiology at [phone]. [facility] CT Abdomen and Pelvis W cont rast IVOrdered By: Ccf Provider on 07-04-2022 [facility] [address] Chest W contrast Petty [...] any questions regarding this interpretation, please call [phone]. If you are unable to reach us at the number above, please feel free to contact [facility] eRadiology at [phone]. DIVISION OF RADIOLOGY * * *Final Report* [...] performed concurrently and will be dictated separately. Human Resources Support Specialist (topogram) images: No additional findings. DIVISION OF RADIOLOGY Provider, [facility] - 07/04/2022 * * *Final Report* * [...] performed concurrently and will be dictated separately. Human Resources Support Specialist (topogram) images: No additional findings. IMPRESSION IMPRESSION: [...] any questions regarding this interpretation, please call [phone]. If you are unable to reach us at the number above, please feel free to contact [facility] eRadiology at [phone]. [facility] Cancer Ag 19-9 Qnon 01-06-20 23 Interpretation and review of laboratory results Normal [facility] FERRITIN BLDon 07-04-2022 Ferritin [Mass/Vol] 243.0 ng/mL 30.3 - 565.7 ng/mL [facility] FOLATE SERUMon 07-04-2022 Folate [Mass/Vol] 4.1 ng/mL Low 4.7 - PINF ng/mL [facility] Folate [Mass/Vol]on 07-04-19 Interpretation and review of laboratory results Abnormal [facility] Iron and Iron binding capaci ty panelon 07-04-2022 Interpretation and review of laboratory results Abnormal [facility] Iron [Mass/Vol] 30 ug/dL Low 41 - 186 ug/dL [facility] Iron binding capacity [Mass/Vol] 212 ug/dL Low 232 - 386 ug/dL [facility] Iron/TIBC [Molar ratio] 14.2 % Low 15.0 - 57.0 % [facility] No Panel Informationon 07-04 [facility] Interpretation and review of laboratory results Normal [facility] VITAMIN B12 BLOODon 07-04-19 Cobalamin (Vitamin B12) [Mass/Vol] 465 pg/mL 232 - 1245 pg/mL [facility] CBC W Auto Differential pane l (Bld)on 07-03-2022 Basophils (Bld) [#/Vol] [facility] Basophils/100 WBC (Bld) 0.6 % [facility] Differential cell count method Nom (Bld) Auto [facility] Eosinophils (Bld) [#/Vol] 0.19 10*3/uL [facility] Eosinophils/100 WBC (Bld) 5.7 % [facility] Erythrocyte distribution width (RBC) [Ratio] 13.3 % 11.5 - 15.0 % [facility] Hematocrit (Bld) [Volume fraction] 27.5 % Low 39.0 - 51.0 % [facility] Hemoglobin (Bld) [Mass/Vol] 8.7 g/dL Low 13.0 - 17.0 g/dL [facility] Immature granulocytes (Bld) [#/Vol] [facility] Immature granulocytes/100 WBC (Bld) 0.3 % [facility] Interpretation and review of laboratory results Abnormal [facility] Lymphocytes (Bld) [#/Vol] 0.83 10*3/uL Low [facility] Lymphocytes/100 WBC (Bld) 24.9 % [facility] MCH (RBC) [Entitic mass] 34.1 pg High 26.0 - 34.0 pg [facility] MCHC (RBC) [Mass/Vol] 31.6 g/dL 30.5 - 36.0 g/dL [facility] MCV (RBC) [Entitic vol] 107.8 fL High 80.0 - 100.0 fL [facility] Monocytes (Bld) [#/Vol] 0.41 10*3/uL [facility] Monocytes/100 WBC (Bld) 12.3 % [facility] Neutrophils (Bld) [#/Vol] 1.88 10*3/uL [facility] Neutrophils/100 WBC (Bld) 56.2 % [facility] Nucleated RBC (Bld) [#/Vol] [facility] Nucleated RBC/100 WBC (Bld) [Ratio] 0.0 % /100 WBC [facility] Platelet mean volume (Bld) [Entitic vol] 8.8 fL Low 9.0 - 12.7 fL [facility] Platelets (Bld) [#/Vol] 231 10*3/uL [facility] RBC (Bld) [#/Vol] 2.55 10*6/uL Low 4.20 - 6.00 m/uL [facility] WBC (Bld) [#/Vol] 3.34 10*3/uL Low [facility] This is an appended report. These results have been appended to a previously verified report. [facility] Comprehensive metabolic 2000 panelOrdered By: Arnulfo Emmanuel on 07-03-2022 Albumin [Mass/Vol] 3.5 g/dL Low 3.9 - 4.9 g/dL [facility] ALP [Catalytic activity/Vol] 140 U/L High 38 - 113 U/L [facility] ALT [Catalytic activity/Vol] 32 U/L 10 - 54 U/L [facility] Anion gap [Moles/Vol] 7 mmol/L Low 9 - 18 mmol/L [facility] AST [Catalytic activity/Vol] 27 U/L 14 - 40 U/L [facility] Bilirubin [Mass/Vol] 0.2 mg/dL 0.2 - 1 .3 mg/dL [facility] Calcium [Mass/Vol] 8.5 mg/dL 8.5 - 10. 2 mg/dL [facility] Chloride [Moles/Vol] 102 mmol/L 97 - 10 5 mmol/L [facility] CO2 [Moles/Vol] 21 mmol/L Low 22 - 30 mmol/L [facility] Creatinine [Mass/Vol] 0.70 mg/dL Low 0.73 - 1.22 mg/dL [facility] GFR/1.73 sq M.predicted among non-blacks MDRD (S/P/Bld) [Vol rate/Area] 102 mL/min/{1.73_m2} - PINF [facility] Comment on above: Estimated Glomerular [...] 292 mg/dL High 74 - 99 mg/dL [facility] Comment on above: The [place] Diabete s Association (ADA) provides guidance for [...] Standards of Medical Care in Diabetes 2016, [place] [employer]. Diabetes Care. 2016.39(Suppl 1). Interpretation and review of laboratory results Abnormal [facility] Potassium [Moles/Vol] 4.4 mmol/L 3.7 - 5.1 mmol/L [facility] Protein [Mass/Vol] 6.3 g/dL 6.3 - 8.0 g/dL [facility] Sodium [Moles/Vol] 130 mmol/L Low 136 - 144 mmol/L [facility] Urea nitrogen [Mass/Vol] 23 mg/dL 9 - 24 mg/dL [facility] No Panel Informationon 07-03 Radiology Study observation (narrative) [facility] XR LSPINE MIN 4 VIEWSon [...] by: REBA REID Date: 2022-05-13 07:55 Normal [facility] CA 19-9 Don 02-07-2022 Cancer Ag 19-9 Qn 15.0 [arb'U]/mL NINF - 36.0 U/mL [facility] Comment on above: Cancer antigen 19-9 test is used as an aid in monitoring response to treatment or recurrence in patients with established pancreatic, hepatobiliary, or gastrointestinal malignancies. Clinical correlation is required. Test analyzed by the [employer] DXI Method. Results obtained with different assay, methods or kits cannot be used interchangeably. CEA Don 02-07-2022 Carcinoembryonic Ag [Mass/Vol] 1.6 ng/mL NIN - 2.9 ng/mL [facility] Comment on above: Carcinoembryonic ant igen test is used as an aid in monitoring response to treatment or recurrence in patients with established colorectal, breast, lung, prostatic, pancreatic, and ovarian carcinomas. Clinical correlation is required. The [employer] [place] DXI 600/800 is used. Results obtained with different assay, methods or kits cannot be used interchangeably Cancer Ag 19-9 Qnon 02-08-20 Interpretation and review of laboratory results Normal [facility] Carcinoembryonic Ag [Mass/Vo l]on 02-07-2022 Interpretation and review of laboratory results Normal [facility] CBC W Auto Differential pane l (Bld)on 02-06-2022 Basophils (Bld) [#/Vol] NINF [facility] Basophils/100 WBC (Bld) 0.2 % [facility] Differential cell count method Nom (Bld) Auto [facility] Eosinophils (Bld) [#/Vol] 0.12 10*3/uL [facility] Eosinophils/100 WBC (Bld) 2.6 % [facility] Erythrocyte distribution width (RBC) [Ratio] 13.3 % 11.5 - 15.0 % [facility] Hematocrit (Bld) [Volume fraction] 29.4 % Low 39.0 - 51.0 % [facility] Hemoglobin (Bld) [Mass/Vol] 9.5 g/dL Low 13.0 - 17.0 g/dL [facility] Immature granulocytes (Bld) [#/Vol] [facility] Immature granulocytes/100 WBC (Bld) 0.2 % [facility] Interpretation and review of laboratory results Abnormal [facility] Lymphocytes (Bld) [#/Vol] 1.52 10*3/uL [facility] Lymphocytes/100 WBC (Bld) 32.6 % [facility] MCH (RBC) [Entitic mass] 34.7 pg High 26.0 - 34.0 pg [facility] MCHC (RBC) [Mass/Vol] 32.3 g/dL 30.5 - 36.0 g/dL [facility] MCV (RBC) [Entitic vol] 107.3 fL High 80.0 - 100.0 fL [facility] Monocytes (Bld) [#/Vol] 0.39 10*3/uL [facility] Monocytes/100 WBC (Bld) 8.4 % [facility] Neutrophils (Bld) [#/Vol] 2.61 10*3/uL [facility] Neutrophils/100 WBC (Bld) 56.0 % [facility] Nucleated RBC (Bld) [#/Vol] [facility] Nucleated RBC/100 WBC (Bld) [Ratio] 0.0 % /100 WBC [facility] Platelet mean volume (Bld) [Entitic vol] 9.2 fL 9.0 - 12.7 fL [facility] Platelets (Bld) [#/Vol] 302 10*3/uL [facility] RBC (Bld) [#/Vol] 2.74 10*6/uL Low 4.20 - 6.00 m/uL [facility] WBC (Bld) [#/Vol] 4.66 10*3/uL [facility] This is an appended report. These results have been appended to a previously verified report. [facility] CT Abdomen and Pelvis W cont [...] any questions regarding this interpretation, please call [phone]. If you are unable to reach us at the number above, please feel free to contact [facility] eRadiology at [phone]. ZZZ_DO_NOT_ USE_DIVISIO N OF RADIOLOGY * * [...] chest CT performed will be reported separately. Human Resources Support Specialist (topogram) images: No additional findings. ZZZ_DO_NOT_ USE_DIVISIO N OF RADIOLOGY Provider, [facility] - 02/06/2022 * * *Final Report* * [...] chest CT performed will be reported separately. Human Resources Support Specialist (topogram) images: No additional findings. IMPRESSION IMPRESSION: [...] any questions regarding this interpretation, please call [phone]. If you are unable to reach us at the number above, please feel free to contact [facility] eRadiology at [phone]. [facility] CT Chest W contrast Petty [...] any questions regarding this interpretation, please call [phone]. If you are unable to reach us at the number above, please feel free to contact [facility] eRadiology at [phone]. ZZZ_DO_NOT_ USE_DIVISIO N OF RADIOLOGY * * [...] findings. ZZZ_DO_NOT_ USE_DIVISIO N OF RADIOLOGY Provider, [facility] - 02/06/2022 * * *Final Report* * [...] any questions regarding this interpretation, please call [phone]. If you are unable to reach us at the number above, please feel free to contact [facility] eRadiology at [phone]. [facility] Comprehensive metabolic 2000 panelOrdered By: Cody Bryson on 02-06-2022 Albumin [Mass/Vol] 3.5 g/dL Low 3.9 - 4.9 g/dL [facility] ALP [Catalytic activity/Vol] 166 U/L High 38 - 113 U/L [facility] ALT [Catalytic activity/Vol] 38 U/L 10 - 54 U/L [facility] Anion gap [Moles/Vol] 8 mmol/L Low 9 - 18 mmol/L [facility] AST [Catalytic activity/Vol] 30 U/L 14 - 40 U/L [facility] Bilirubin [Mass/Vol] 0.2 mg/dL 0.2 - 1 .3 mg/dL [facility] Calcium [Mass/Vol] 8.8 mg/dL 8.5 - 10. 2 mg/dL [facility] Chloride [Moles/Vol] 110 mmol/L High 97 - 10 5 mmol/L [facility] CO2 [Moles/Vol] 19 mmol/L Low 22 - 30 mmol/L [facility] Creatinine [Mass/Vol] 0.71 mg/dL Low 0.73 - 1.22 mg/dL [facility] GFR/1.73 sq M.predicted among non-blacks MDRD (S/P/Bld) [Vol rate/Area] 102 mL/min/{1.73_m2} - PINF [facility] Comment on above: Estimated Glomerular [...] [Mass/Vol] 98 mg/dL 74 - 99 mg/dL [facility] Comment on above: The [place] Diabete s Association (ADA) provides guidance for [...] Standards of Medical Care in Diabetes 2016, [place] [employer]. Diabetes Care. 2016.39(Suppl 1). Interpretation and review of laboratory results Abnormal [facility] Potassium [Moles/Vol] 4.8 mmol/L 3.7 - 5.1 mmol/L [facility] Protein [Mass/Vol] 6.4 g/dL 6.3 - 8.0 g/dL [facility] Sodium [Moles/Vol] 137 mmol/L 136 - 144 mmol/L [facility] Urea nitrogen [Mass/Vol] 26 mg/dL High 9 - 24 mg/dL [facility] No Panel InformationOrdered By: Ccf Provider on 02-06-2022 [facility] No Panel Informationon 02-06 Radiology Study observation (narrative) [facility] LIPID PROFILEon 02-04-2022 CHOL-HDL RATIO NORM SEE BELOW Normal [facility] Comment on above: Result Comment: 3.3 - 4.4 LOW RISK 4.4 - 7.1 AVERAGE RISK 7.1 - 11.0 MODERATE RISK >11.0 HIGH RISK Performed By: #### L IPID, CMP #### [facility] [address] [address] [address] Mel Barrientos Cholesterol [Mass/Vol] 100 mg/dL Normal <=200 [facility] Comment on above: Performed By: #### L IPID, CMP #### [facility] [address] [address] [address] Mel Barrientos Cholesterol in HDL [Mass/Vol] 20 mg/dL Critically low 40-60 [facility] Comment on above: Performed By: #### L IPID, CMP #### [facility] [address] [address] [address] Mel Barrientos Cholesterol in LDL [Mass/Vol] 63.6 mg/dL Normal [facility] Comment on above: Performed By: #### L IPID, CMP #### [facility] [address] [place] [address] Dr. Mel Barrientos Cholesterol.total/Cho lesterol in HDL [Mass ratio] 5.0 {ratio} Normal [facility] Comment on above: Performed By: #### L IPID, CMP #### [facility] [address] [address] [address] Mel Barrientos HDL NORMAL > or = 60 mg/dl - LO W CARDIOVASCULAR RISK <40 mg/dl - HIGH CARDIOVASCULAR RISK Normal [facility] Comment on above: Performed By: #### L IPID, CMP #### [facility] [address] [address] [address] Mel Barrientos LDL CALC NORMAL SEE BELOW Normal [facility] Comment on above: Result Comment: <100 mg/dl OPTIMAL 100 - 129 mg/dl NEAR OR ABOVE OPTIMAL 130 - 159 mg/dl BORDERLINE HIGH 160 - 189 mg/dl HIGH >190 mg/dl VERY HIGH Performed By: #### L IPID, CMP #### [facility] [address] [place] [address] Dr[address] Mel Barrientos Triglyceride [Mass/Vol] 82 mg/dL Normal <=150 [facility] Comment on above: Performed By: #### L IPID, CMP #### [facility] [address] [address] [address] Mel Barrientos VLDL CALC 16.4 mg/dL Normal [facility] Comment on above: Performed By: #### L IPID, CMP #### [facility] [address] [place] [address] Dr. Mel Barrientos PROF CHEM 8 (BAS METB)on Anion gap [Moles/Vol] 15.8 mmol/L Normal [facility] Comment on above: Performed By: #### L IPID, CMP #### [facility] [address] [place] [address] Dr. Mel Barrientos Calcium [Mass/Vol] 8.5 mg/dL Normal 8.5-10.1 [facility] Comment on above: Performed By: #### L IPID, CMP #### [facility] [address] [place] [address] Dr. Mel Barrientos Chloride [Moles/Vol] 109 mmol/L Critically high 98-107 [facility] Comment on above: Performed By: #### L IPID, CMP #### [facility] [address] [place] [address] Dr. Mel Barrientos CO2 [Moles/Vol] 17.7 mmol/L Critically low 21.0-32.0 [facility] Comment on above: Performed By: #### L IPID, CMP #### [facility] [address] [place] [address] Dr. Mel Barrientos Creatinine [Mass/Vol] 0.79 mg/dL Normal 0.70-1.30 [facility] Comment on above: Performed By: #### L IPID, CMP #### [facility] [address] [place] [address] Dr. Mel Barrientos EGFR-AF EMIRATI >60 Normal >=60 [facility] Comment on above: Performed By: #### L IPID, CMP #### [facility] [address] [place] [address] Dr. Mel Barrientos EGFR-NON AF EMIRATI >60 Normal >=60 [facility] Comment on above: Performed By: #### L IPID, CMP #### [facility] [address] [place] [address] Dr. Mel Barrientos Glucose [Mass/Vol] 116 mg/dL Critically high 74-106 [facility] Comment on above: Performed By: #### L IPID, CMP #### [facility] [address] [place] [address] Dr. Mel Barrientos Potassium [Moles/Vol] 4.5 mmol/L Normal 3.5-5.1 [facility] Comment on above: Performed By: #### L IPID, CMP #### [facility] [address] [place] [address] Dr. Mel Barrientos Sodium [Moles/Vol] 138 mmol/L Normal 136-145 [facility] Comment on above: Performed By: #### L IPID, CMP #### [facility] [address] [place] [address] Dr. Mel Barrientos Urea nitrogen [Mass/Vol] 29.0 mg/dL Critically high 7.0-18.0 [facility] Comment on above: Performed By: #### L IPID, CMP #### [facility] [address] [place] [address] Dr. Mel Barrientos Urea nitrogen/Creatinine [Mass ratio] 36.7 mg/mg Normal [facility] Comment on above: Performed By: #### L IPID, CMP #### [facility] [address] [place] [address] Dr. Mel Andrews 02-04-2022 AST [Catalytic activity/Vol] 35 U/L Normal 15-37 [facility] Comment on above: Performed By: #### B MP, AST, ALT, LIPID #### [facility] [address] [place] [address] Dr. Mel RODARTEPTon 02-04-2022 ALT [Catalytic activity/Vol] 64 U/L Critically high 16-63 [facility] Comment on above: Performed By: #### L IPID, CMP #### [facility] [address] [place] [address] Dr. Mel Barrientos Office Visit (Cardiology)on 01-09-2022 [...] Aminotransferase, Serum; Status:Active - Retrospective Authorization; Requested for:[id number]; AST; Status:Active - Retrospective Authorization; Requested for:[id number]; Basic Metabolic Panel; Status:Active - Retrospective Authorization; Requested for:[id number]; Lipid Panel; Status:Active - Retrospective Authorization; Requested for:[id number]; SocHx: Former smoker Tobacco Use Screening; Status:Complete; Done: [id number] Patient Instructions By signing my name below, [...] of 40%. He is status post anterior WI, with PCI of the LAD in 2010. [...] Oral TabletTAKE 1 TABLET AT BEDTIME. Creon [id number] UNIT Oral Capsule Delayed Release Particles1 tablet [...] negative for complaint. Vitals Vital Signs Recorded: [id number] 11:21AM Heart Rate80, R Radial Qzcshgzv538, RUE Zngqhkbet30, RUE Height5 ft 8 in Rpsdgr513 lb BMI Rhprdgwebc15.9 kg/m2 BSA Calculated1.78 Tobacco Useb) No PHQ-2 [...] Neck: n (more content not included)... Normal [facility] VITAMIN B12on 11-26-2021 Cobalamin (Vitamin B12) [Mass/Vol] 609.0 pg/mL Normal 193.0-986. 0 [facility] Comment on above: Performed By: #### P T, PTT #### [facility] [address] [place] [address] Dr. Mel Barrientos CBC AUTO DIFFon 11-12-2021 BASO # 0.0 103/ul Normal 0.0-0.1 [facility] Comment on above: Performed By: #### C BC #### [facility] [address] [place] [address] Dr. Mel Barrientos Basophils/100 WBC (Bld) 0.4 % Normal 0.2-2.0 [facility] Comment on above: Performed By: #### C BC #### [facility] [address] [place] [address] Dr. Mel Barrientos EO # 0.1 103/ul Normal 0.0-0.7 [facility] Comment on above: Performed By: #### C BC #### [facility] [address] [place] [address] Dr. Mel Barrientos Eosinophils/100 WBC (Bld) 1.6 % Normal 0.9-7.0 [facility] Comment on above: Performed By: #### C BC #### [facility] [address] [place] [address] Dr. Mel Barrientos Erythrocyte distribution width (RBC) [Ratio] 14.4 % Normal 11.0-15.0 [facility] Comment on above: Performed By: #### C BC #### [facility] [address] [place] [address] Dr. Mel Barrientos Hematocrit (Bld) [Volume fraction] 38.1 % Critically low 42.0-54.0 [facility] Comment on above: Performed By: #### C BC #### [facility] [address] [place] [address] Dr. Mel Barrientos Hemoglobin (Bld) [Mass/Vol] 12.5 g/dL Critically low 14.0-18.0 [facility] Comment on above: Performed By: #### C BC #### [facility] [address] [place] [address] Dr. Mel Barrientos IG # 0.02 10e3/ul Normal 0.00-0.03 [facility] Comment on above: Performed By: #### C BC #### [facility] [address] [place] [address] Dr. Mel Barrientos IG % 0.4 % Normal 0.0-0.5 [facility] Comment on above: Performed By: #### C BC #### [facility] [address] [place] [address] Dr. Mel Barrientos LYMPH # 2.2 103/ul Normal 1.2-3.8 [facility] Comment on above: Performed By: #### C BC #### [facility] [address] [place] [address] Dr. Mel Barrientos Lymphocytes/100 WBC (Bld) 43.2 % Normal 20.5-60.0 [facility] Comment on above: Performed By: #### C BC #### [facility] [address] [place] [address] Dr. Mel Barrientos MANUAL DIFF REQ NO Normal [facility] Comment on above: Performed By: #### C BC #### [facility] [address] [place] [address] Dr. Mel Barrientos MCH (RBC) [Entitic mass] 35.1 pg Critically high 25.9-34.0 [facility] Comment on above: Performed By: #### C BC #### [facility] [address] [place], [place] [id number] Dr. Mel Barrientos MCHC (RBC) [Mass/Vol] 32.8 g/dL Normal 29.9-35.2 [facility] Comment on above: Performed By: #### C BC #### [facility] [address] [place] [address] Dr. Mel Barrientos MCV (RBC) [Entitic vol] 107.0 fL Critically high 80.0-94.0 [facility] Comment on above: Result Comment: MACR OCYTOSIS CONFIRMED ON PERIPHERAL SMEAR Performed By: #### C BC #### [facility] [address] [place] [address] Dr. Mel Barrientos MONO # 0.5 103/ul Normal 0.3-0.8 [facility] Comment on above: Performed By: #### C BC #### [facility] [address] [place] [address] Dr. Mel Barrientos Monocytes/100 WBC (Bld) 9.4 % Normal 1.7-12.0 [facility] Comment on above: Performed By: #### C BC #### [facility] [address] [place] [address] Dr. Mel Barrientos NEUT # 2.3 103/ul Normal 1.4-6.5 [facility] Comment on above: Performed By: #### C BC #### [facility] [address] [place] [address] Dr. Mel Barrientos Neutrophils/100 WBC (Bld) 45.0 % Normal 43.0-75.0 [facility] Comment on above: Performed By: #### C BC #### [facility] [address] [place] [address] Dr. Mel Barrientos Platelet mean volume (Bld) [Entitic vol] 9.3 fL Critically low 9.5-13.5 [facility] Comment on above: Performed By: #### C BC #### [facility] [address] [place] [address] Dr. Mel Barrientos PLT 307 103/ul Normal 150-450 [facility] Comment on above: Performed By: #### C BC #### [facility] [address] [place] [address] Dr. Mel Barrientos RBC 3.56 106/ul Critically low 4.70-6.10 [facility] Comment on above: Performed By: #### C BC #### [facility] [address] [place] [address] Dr. Mel Barrientos WBC 5.1 103/ul Normal 4.0-11.0 [facility] Comment on above: Performed By: #### C BC #### [facility] [address] [place] [address] Dr. Mel Barrientos PROF 14(COMP METB)on 022 Albumin [Mass/Vol] 2.3 g/dL Critically low 3.4-5.0 [facility] Comment on above: Performed By: #### L IPID, CMP #### [facility] [address] [place] [address] Dr. Mel Barrientos Albumin/Globulin [Mass ratio] 0.6 {ratio} Normal [facility] Comment on above: Performed By: #### L IPID, CMP #### [facility] [address] [place] [address] Dr. Mel Barrientos ALP [Catalytic activity/Vol] 189 U/L Critically high 46-116 [facility] Comment on above: Performed By: #### L IPID, CMP #### [facility] [address] [place] [address] Dr. Mel Barrientos ALT [Catalytic activity/Vol] 86 U/L Critically high 16-63 [facility] Comment on above: Performed By: #### L IPID, CMP #### [facility] [address] [place] [address] Dr. Mel Barrientos Anion gap [Moles/Vol] 15.4 mmol/L Normal [facility] Comment on above: Performed By: #### L IPID, CMP #### [facility] [address] [place] [address] Dr. Mel Barrientos AST [Catalytic activity/Vol] 67 U/L Critically high 15-37 [facility] Comment on above: Performed By: #### L IPID, CMP #### [facility] [address] [address] [address] Mel Barrientos Bilirubin [Mass/Vol] 0.4 mg/dL Normal 0.2-1.0 [facility] Comment on above: Performed By: #### L IPID, CMP #### [facility] [address] [place] [address] Dr. Mel Barrientos Calcium [Mass/Vol] 7.7 mg/dL Critically low 8.5-10.1 [facility] Comment on above: Performed By: #### L IPID, CMP #### [facility] [address] [place] [address] Dr. Mel Barrientos Chloride [Moles/Vol] 106 mmol/L Normal 98-107 [facility] Comment on above: Performed By: #### L IPID, CMP #### [facility] [address] [place] [address] Dr. Mel Barrientos CO2 [Moles/Vol] 17.7 mmol/L Critically low 21.0-32.0 [facility] Comment on above: Performed By: #### L IPID, CMP #### [facility] [address] [place] [address] Dr. Mel Barrientos Creatinine [Mass/Vol] 0.91 mg/dL Normal 0.70-1.30 [facility] Comment on above: Performed By: #### L IPID, CMP #### [facility] [address] [place] [address] Dr. Mel Barrientos EGFR-AF EMIRATI >60 Normal >=60 [facility] Comment on above: Performed By: #### L IPID, CMP #### [facility] [address] [place] [address] Dr. Mel Barrientos EGFR-NON AF EMIRATI >60 Normal >=60 [facility] Comment on above: Performed By: #### L IPID, CMP #### [facility] [address] [place] [address] Dr. Mel Barrientos Globulin (S) [Mass/Vol] 3.8 g/dL Normal [facility] Comment on above: Performed By: #### L IPID, CMP #### [facility] [address] [address] [address] Mel Barrientos Glucose [Mass/Vol] 77 mg/dL Normal 74-106 [facility] Comment on above: Performed By: #### L IPID, CMP #### [facility] [address] [address] [address] Mel Barrientos Potassium [Moles/Vol] 4.1 mmol/L Normal 3.5-5.1 [facility] Comment on above: Performed By: #### L IPID, CMP #### [facility] [address] [place] [address] Dr. Mel Barrientos Protein [Mass/Vol] 6.1 g/dL Critically low 6.4-8.2 [facility] Comment on above: Performed By: #### L IPID, CMP #### [facility] [address] [place] [address] Dr. Mel Barrientos Sodium [Moles/Vol] 135 mmol/L Critically low 136-145 [facility] Comment on above: Performed By: #### L IPID, CMP #### [facility] [address] [place] [address] Dr. Mel Barrientos Urea nitrogen [Mass/Vol] 25.0 mg/dL Critically high 7.0-18.0 [facility] Comment on above: Performed By: #### L IPID, CMP #### [facility] [address] [place] [address] Dr. Mel Barrientos Urea nitrogen/Creatinine [Mass ratio] 27.5 mg/mg Normal [facility] Comment on above: Performed By: #### L IPID, CMP #### [facility] [address] [place] [address] Dr. Mel Barrientos GLYCOHEMOGLOBIN A1Con 2021 ADA RECOMMENDATION ADA THERAPEUTIC TARG ET 6.0 - 7.0 ACTION SUGGESTED > 7.0 Normal [facility] Comment on above: Performed By: #### L IPID, CMP #### [facility] [address] [place] [address] Dr. Mel Barrientos Glucose [Mass/Vol] 100 mg/dL Normal [facility] Comment on above: Performed By: #### L IPID, CMP #### [facility] [address] [address] [address] Mel Barrientos HbA1c (Bld) [Mass fraction] 5.1 % Normal <=6.0 [facility] Comment on above: Performed By: #### L IPID, CMP #### [facility] [address] [address] [address] Mel Barrientos LIPID PROFILEon 10-10-2021 CHOL-HDL RATIO NORM SEE BELOW Normal [facility] Comment on above: Result Comment: 3.3 - 4.4 LOW RISK 4.4 - 7.1 AVERAGE RISK 7.1 - 11.0 MODERATE RISK >11.0 HIGH RISK Performed By: #### L IPID, CMP #### [facility] [address] [place] [address] Dr. Mel Barrientos Cholesterol [Mass/Vol] 63 mg/dL Normal <=200 [facility] Comment on above: Performed By: #### L IPID, CMP #### [facility] [address] [address] [address] Mel Barrientos Cholesterol in HDL [Mass/Vol] 12 mg/dL Critically low 40-60 [facility] Comment on above: Performed By: #### L IPID, CMP #### [facility] [address] [place] [address] Dr. Mel Barrientos Cholesterol in LDL [Mass/Vol] 32.2 mg/dL Normal [facility] Comment on above: Performed By: #### L IPID, CMP #### [facility] [address] [address] [address] Mel Barrientos Cholesterol.total/Cho lesterol in HDL [Mass ratio] 5.3 {ratio} Normal [facility] Comment on above: Performed By: #### L IPID, CMP #### [facility] [address] [address] [address] Mel Barrientos HDL NORMAL > or = 60 mg/dl - LO W CARDIOVASCULAR RISK <40 mg/dl - HIGH CARDIOVASCULAR RISK Normal [facility] Comment on above: Performed By: #### L IPID, CMP #### [facility] [address] [place] [address] Dr. Mel Barrientos LDL CALC NORMAL SEE BELOW Normal [facility] Comment on above: Result Comment: <100 mg/dl OPTIMAL 100 - 129 mg/dl NEAR OR ABOVE OPTIMAL 130 - 159 mg/dl BORDERLINE HIGH 160 - 189 mg/dl HIGH >190 mg/dl VERY HIGH Performed By: #### L IPID, CMP #### [facility] [address] [address] [address] Mel Barrientos Triglyceride [Mass/Vol] 94 mg/dL Normal <=150 [facility] Comment on above: Performed By: #### L IPID, CMP #### [facility] [address] [place] [address] Dr. Mel Barrientos VLDL CALC 18.8 mg/dL Normal [facility] Comment on above: Performed By: #### L IPID, CMP #### [facility] [address] [place] [address] Dr. Mel Barrientos PROF 14(COMP METB)on 022 Albumin [Mass/Vol] 2.4 g/dL Critically low 3.4-5.0 [facility] Comment on above: Performed By: #### L IPID, CMP #### [facility] [address] [place] [address] Dr. Mel Barrientos Albumin/Globulin [Mass ratio] 0.8 {ratio} Normal [facility] Comment on above: Performed By: #### L IPID, CMP #### [facility] [address] [place] [address] Dr. Mel Barrientos ALP [Catalytic activity/Vol] 153 U/L Critically high 46-116 [facility] Comment on above: Performed By: #### L IPID, CMP #### [facility] [address] [place] [address] Dr. Mel Barrientos ALT [Catalytic activity/Vol] 133 U/L Critically high 16-63 [facility] Comment on above: Performed By: #### L IPID, CMP #### [facility] [address] [place], [place] [address] Dr. Mel Barrientos Anion gap [Moles/Vol] 12.1 mmol/L Normal [facility] Comment on above: Performed By: #### L IPID, CMP #### [facility] [address] [place] [address] Dr. Mel Barrientos AST [Catalytic activity/Vol] 215 U/L Critically high 15-37 [facility] Comment on above: Performed By: #### L IPID, CMP #### [facility] [address] [place] [address] Dr. Mel Barrientos Bilirubin [Mass/Vol] 0.4 mg/dL Normal 0.2-1.3 [facility] Comment on above: Performed By: #### L IPID, CMP #### [facility] [address] [place] [address] Dr. Mel Barrientos Calcium [Mass/Vol] 7.6 mg/dL Critically low 8.5-10.1 [facility] Comment on above: Performed By: #### L IPID, CMP #### [facility] [address] [place] [address] Dr. Mel Barrientos Chloride [Moles/Vol] 107 mmol/L Normal 98-107 [facility] Comment on above: Performed By: #### L IPID, CMP #### [facility] [address] [place] [address] Dr. Mel Barrientos CO2 [Moles/Vol] 22.8 mmol/L Normal 22.0-30.0 [facility] Comment on above: Performed By: #### L IPID, CMP #### [facility] [address] [place] [address] Dr. Mel Barrientos Creatinine [Mass/Vol] 0.99 mg/dL Normal 0.66-1.25 [facility] Comment on above: Performed By: #### L IPID, CMP #### [facility] [address] [place] [address] Dr. Mel Barrientos EGFR-AF EMIRATI >60 Normal >=60 [facility] Comment on above: Performed By: #### L IPID, CMP #### [facility] [address] [address] [address] Mel Barrientos EGFR-NON AF EMIRATI >60 Normal >=60 [facility] Comment on above: Performed By: #### L IPID, CMP #### [facility] [address] [address] [address] Mel Barrientos Globulin (S) [Mass/Vol] 3.2 g/dL Normal [facility] Comment on above: Performed By: #### L IPID, CMP #### [facility] [address] [place] [address] Dr. Mel Barrientos Glucose [Mass/Vol] 68 mg/dL Critically low 74-106 [facility] Comment on above: Performed By: #### L IPID, CMP #### [facility] [address] [place] [address] Dr. Mel Barrientos Potassium [Moles/Vol] 4.9 mmol/L Normal 3.4-5.0 [facility] Comment on above: Performed By: #### L IPID, CMP #### [facility] [address] [place] [address] Dr. Mel Barrientos Protein [Mass/Vol] 5.6 g/dL Critically low 6.1-8.2 [facility] Comment on above: Performed By: #### L IPID, CMP #### [facility] [address] [place] [address] Dr. Mel Barrientos Sodium [Moles/Vol] 137 mmol/L Normal 137-145 [facility] Comment on above: Performed By: #### L IPID, CMP #### [facility] [address] [place] [address] Dr. Mel Barrientos Urea nitrogen [Mass/Vol] 30.0 mg/dL Critically high 7.0-18.0 [facility] Comment on above: Performed By: #### L IPID, CMP #### [facility] [address] [place] [address] Dr. Mel Barrientos Urea nitrogen/Creatinine [Mass ratio] 30.3 mg/mg Normal [facility] Comment on above: Performed By: #### L IPID, CMP #### [facility] [address] [address] [address] Mel Barrientos CASE MANAGEMon 10-09-2017 CASE MANAGEM HNO ID: [id number] thor: Clementina Culver (Lsw)uloService: Care ManagementAuthor Type: Social WorkerType: Care Mgt Progress NoteFiled: 10/09/2017 3:12 PMNote Text:CARE MANAGEMENT DISCHARGE NOTESERVICE DATE: 10/09/2017SERVICE TIME: 3:02 PM LOS: 9 daysAdmission Date: 09/30/2017DISCHARGE ARRANGEMENT (list agency and phone number)[facility] facilityProvider: [facility] [id number] ASSESSMENT:Caregiver is ready, willing and able to meet the patient's needs asrecommended by the inter-professional team? YesPatient's transition needs and plan for meeting these needs: SNFDoes the patient have an acute stroke diagnosis, or has the patient had astroke during this admission? NoHANDOFF COMMUNICATION:Primary Care Physician: Dr. Adriane Nichols [id number] ARRANGEMENTS:Car FamilyADDITIONAL CONTACT RESOURCES: Pt sister Briana Muller [phone] Prior to Discharge: Ready for DischargePt medically cleared for d/c. Pt referral updated and Liaison met with Ptand nursing this afternoon. CM prepared d/c packet and 7000 and placed onPt chart w/number for nursing to call report. Per Pt and Pt sister familyto transport Pt around [phone] today. Text to Allegra GARCIA) to contactnursing on Pt d/c instructions.SIGNATURE: TRACI Hammer PATIENT NAME: Rocio FrischDATE: October 09, 2017 : 3:02 PM PAGER/CONTACT #: [phone] Normal [facility] CBC and Differentialon 10-09 Abs Baso <0.03 Normal <0.11 [facility] Comment on above: Performed By: #### P T, PTT, AMYL, CMP, LIPA, PHOS ####[facility] [place], [place] [phone]#### TRANSF ####[place] [address] [address] [phone] Abs [place] 0.40 k/uL Normal <0.87 [facility] Comment on above: Performed By: #### P T, PTT, AMYL, CMP, LIPA, PHOS ####[place] [address]#### TRANSF ####[place] [address] [address] [phone] Abs Neut 3.59 k/uL Normal 1.45-7.50 [facility] Comment on above: Performed By: #### P T, PTT, AMYL, CMP, LIPA, PHOS ####[place] [address]#### TRANSF ####[place] [address] Basophils/100 WBC Auto (Bld) 0.3 % Normal [facility] Comment on above: Performed By: #### P T, PTT, AMYL, CMP, LIPA, PHOS ####[place] [address]#### TRANSF ####[place] [address] DTYPE Auto Diff Normal [facility] Comment on above: Performed By: #### P T, PTT, AMYL, CMP, LIPA, PHOS ####[place] [address]#### TRANSF ####[place] [address] Eosinophils 0.10 10*3/uL Normal <0.46 [facility] Comment on above: Performed By: #### P T, PTT, AMYL, CMP, LIPA, PHOS ####[place] [address]#### TRANSF ####[address] [phone] Eosinophils/100 leukocytes 1.7 % Normal [facility] Comment on above: Performed By: #### P T, PTT, AMYL, CMP, LIPA, PHOS ####[place] [address]#### TRANSF ####[place] [phone] Erythrocyte distribution width Auto Ratio (RBC) 16.8 % High 11.5-15.0 [facility] Comment on above: Performed By: #### P T, PTT, AMYL, CMP, LIPA, PHOS ####[place] [address]#### TRANSF ####[place] [phone] Erythrocytes (RBC) 3.79 10*6/uL Low 4.20-6.00 [facility] Comment on above: Performed By: #### P T, PTT, AMYL, CMP, LIPA, PHOS ####[place] [address]#### TRANSF ####[place] [phone] Hematocrit (HCT) 29.8 % Low 39.0-51.0 [facility] Comment on above: Performed By: #### P T, PTT, AMYL, CMP, LIPA, PHOS ####[place] [address]#### TRANSF ####[place] [phone] Hemoglobin mass conc (Bld) 9.5 g/dL Low 13.0-17.0 [facility] Comment on above: Performed By: #### P T, PTT, AMYL, CMP, LIPA, PHOS ####[place] [phone]#### TRANSF ####[place] [phone] Lymphocytes 1.69 10*3/uL Normal 1.00-4.00 [facility] Comment on above: Performed By: #### P T, PTT, AMYL, CMP, LIPA, PHOS ####[place] [address]#### TRANSF ####[place] [phone] Lymphocytes/100 leukocytes 29.1 % Normal [facility] Comment on above: Performed By: #### P T, PTT, AMYL, CMP, LIPA, PHOS ####[place] [address]#### TRANSF ####[place] [phone] MCH 25.1 pG Low 26.0-34.0 [facility] Comment on above: Performed By: #### P T, PTT, AMYL, CMP, LIPA, PHOS ####[place] [address]#### TRANSF ####[place] [phone] MCHC mass conc (RBC) 31.9 g/dL Normal 30.5-36.0 [facility] Comment on above: Performed By: #### P T, PTT, AMYL, CMP, LIPA, PHOS ####[place] [address]#### TRANSF ####[place] [phone] MCV 78.6 fL Low 80.0-100.0 [facility] Comment on above: Performed By: #### P T, PTT, AMYL, CMP, LIPA, PHOS ####[address]#### TRANSF ####[place] [phone] Monocytes/100 leukocytes 6.9 % Normal [facility] Comment on above: Performed By: #### P T, PTT, AMYL, CMP, LIPA, PHOS ####[address]#### TRANSF ####[place] [phone] Neutrophils/100 WBC Auto (Bld) 62.0 % Normal [facility] Comment on above: Performed By: #### P T, PTT, AMYL, CMP, LIPA, PHOS ####[address]#### TRANSF ####[place] [phone] Platelet mean volume (PMV) 9.3 fL Normal 9.0-12.7 [facility] Comment on above: Performed By: #### P T, PTT, AMYL, CMP, LIPA, PHOS ####[address]#### TRANSF ####[place] [phone] Platelets 421 10*3/uL High 150-400 [facility] Comment on above: Performed By: #### P T, PTT, AMYL, CMP, LIPA, PHOS ####[address]#### TRANSF ####[place] [phone] WBC (Leukocytes) 5.80 10*3/uL Normal 3.70-11.00 [facility] Comment on above: Performed By: #### P T, PTT, AMYL, CMP, LIPA, PHOS ####[facility] [place], [place] [phone]#### TRANSF ####[facility] [place], [place] [phone] CNDSon 10-09-2017 CNDS HNO ID: [id number] thor: Harmony (Georges) MichaelService: General SurgeryAuthor Type: ResidentType: Discharge SummariesFiled: 10/27/2017 12:15 PMNote Text:DISCHARGE SUMMARYPATIENT NAME: Rocio Jackson ADMISSION DATE: 09/30/2017MRN: [id number] DISCHARGE DATE: ATTENDING PHYSICIAN: Michael Jolley)REASON FOR [...] PATIENT: (To pull info documented from the [employer] Orderset Complete O/S First): No orders of [...] Glucose (mg/dL) is:Less than 110 Give 0 xbzqy652-281 Give 0 cjxib482-577 Give 2 vvsro438-960 Give 4 sfrer043-751 Give 6 icigo772-724 Give 8 ubtsc299-926 Give 10 unitsGreater than 400 Give 10 [...] 20 mL by mouth once daily.Med Update, Xnlk-ifqpcviudg-rwtfgudh-arnulfo lase (CREON 24) 24,000-76,000 -120,000 unit cpDRTake [...] PCP: Adriane Nichols AppointmentsDate Time Provider Department [place]10/29/2017 1:30 PM Michael Jolley) OPS502 [place] MCTIME OF CARE (Use first blank if not applicable): TIME OF CARE: DischargeManagement: I personally spent less than 30 minutes involved in thedischarge management of this patient.SIGNATURE: Harmony Rodriguez MD PATIENT NAME: Rocio JacksonDATE: October 27, 2017 : 12:12 PM PAGER/CONTACT #: [phone] Normal [facility] Comp Metabolic Panelon 10-09 Alanine aminotransferase (ALT) 26 U/L Normal 5-50 [facility] Comment on above: Performed By: #### P T, PTT, AMYL, CMP, LIPA, PHOS ####[place] [phone]#### TRANSF ####[place] [phone] Albumin 3.1 g/dL Low 3.5-5.0 [facility] Comment on above: Performed By: #### P T, PTT, AMYL, CMP, LIPA, PHOS ####[place] [phone]#### TRANSF ####[place] [phone] Alkaline phosphatase (ALP) 101 U/L Normal 40-150 [facility] Comment on above: Performed By: #### P T, PTT, AMYL, CMP, LIPA, PHOS ####[place] [address]#### TRANSF ####[place] [phone] Anion gap 13 mmol/L Normal 9-18 [facility] Comment on above: Performed By: #### P T, PTT, AMYL, CMP, LIPA, PHOS ####[place] [address]#### TRANSF ####[place] [phone] Aspartate aminotransferase (AST) 20 U/L Normal 7-40 [facility] Comment on above: Performed By: #### P T, PTT, AMYL, CMP, LIPA, PHOS ####[place] [address]#### TRANSF ####[place] [phone] Bilirubin (total) 0.2 mg/dL Normal 0.0-1.5 [facility] Comment on above: Performed By: #### P T, PTT, AMYL, CMP, LIPA, PHOS ####[place] [address]#### TRANSF ####[place] [phone] Calcium 8.6 mg/dL Normal 8.5-10.5 [facility] Comment on above: Performed By: #### P T, PTT, AMYL, CMP, LIPA, PHOS ####[place] [address]#### TRANSF ####[place] [phone] Chloride 101 mmol/L Normal 98-110 [facility] Comment on above: Performed By: #### P T, PTT, AMYL, CMP, LIPA, PHOS ####[place] [address]#### TRANSF ####[place] [phone] CO2 24 mmol/L Normal 23-32 [facility] Comment on above: Performed By: #### P T, PTT, AMYL, CMP, LIPA, PHOS ####[place] [address]#### TRANSF ####[place] [phone] Creatinine 0.51 mg/dL Low 0.70-1.40 [facility] Comment on above: Performed By: #### P T, PTT, AMYL, CMP, LIPA, PHOS ####[place] [address]#### TRANSF ####[place] [phone] eGFR (non-black) mL/min/{1.73_m2} Normal >60 [facility] Comment on above: Performed By: #### P T, PTT, AMYL, CMP, LIPA, PHOS ####[address]#### TRANSF ####[place] [phone] Glucose mass conc 185 mg/dL High 65-100 [facility] Comment on above: Performed By: #### P T, PTT, AMYL, CMP, LIPA, PHOS ####[place] [phone]#### TRANSF ####[place] [phone] Potassium molar conc 3.7 mmol/L Normal 3.5-5.0 [facility] Comment on above: Performed By: #### P T, PTT, AMYL, CMP, LIPA, PHOS ####[place] [address]#### TRANSF ####[place] [address] Protein 6.5 g/dL Normal 6.0-8.4 [facility] Comment on above: Performed By: #### P T, PTT, AMYL, CMP, LIPA, PHOS ####[place] [address]#### TRANSF ####[place] [address] Sodium 138 mmol/L Normal 135-146 [facility] Comment on above: Performed By: #### P T, PTT, AMYL, CMP, LIPA, PHOS ####[place] [address]#### TRANSF ####[place] [address] Urea nitrogen 20 mg/dL Normal 10-25 [facility] Comment on above: Performed By: #### P T, PTT, AMYL, CMP, LIPA, PHOS ####[place] [address]#### TRANSF ####[place] [address] NURSING PROGon 10-09-2017 NURSING PROG HNO ID: [id number] thor: Reggie (Rn) MOUSTAPHA Sawantervice: (none)Author Type: Registered NurseType: Nursing Progress NoteFiled: 10/09/2017 12:48 PMNote Text: Nursing Progress NotePatient Name: Rocio HayesN: [id number] Location: [place] [address]/CG-JM3O-10 ____Daily Note: Mr. Jackson up to chair most of shift thus far. Ambulated inhallway with use of walker and 1 staff. He is tolerating tube feed at40ml/hr with no nausea or vomiting. Patient also tolerating clear liquidswith increased intake today as compared to yesterday. Pain controlledwith scheduled Tylenol. Plan [facility] today. Patient updated on plan to transfer to SNF and agreeable with plan. Calllight within reach. Will continue to monitor.This note was completed by: Reggie Sawant RN [facility] NURSING PROG HNO ID: [id number] thor: Renae Diaz (Rn) Siva, RNService: (none)Author Type: Registered NurseType: Nursing Progress NoteFiled: 10/09/2017 2:52 AMNote Text: Nursing Progress NotePatient Name: Rocio JacksonMRN: [id number] Location: [place] [address]/DZ-[id number] ____ 2130 (late entry) Patient heart rate 119, when listening to apicalnoticed irregular rhythm and rate of 96. Patient denied chest pain ordiscomfort or SOB. enrollment management vice president notified and telemetry ordered andapplied.2300 Patient seen by surgical oncologist and no new orders received at thistime. [...] was completed by: Renae Paniagua RN [facility] PLAN OF CAREon 10-09-2017 PLAN OF CARE HNO ID: [id number] thor: Miriam Britt (Drill Press Operator Numerical Control)Service: (none)Author Type: TechnicianType: Plan of CareFiled: 10/12/2017 9:54 AMNote Text:PRESS BUCKER BEDSIDE DELIVERY SURVEY1. Patient to use [facility] Bedside Delivery - N/A2. If fax, patient would like us to fax prescriptions to [facility] a. Pharmacy: b. Location: c. Phone:3. Insurance card on file - N/A4. Credit card for payment - N/A [facility] PROGRESSon 10-09-2017 PROGRESS HNO ID: [id number] thor: Michael Cedillo) AugustinService: General SurgeryAuthor Type: PhysicianType: Progress NotesFiled: 10/09/2017 10:59 AMNote Text:SURGICAL SERVICES PROGRESS NOTENAME: Rocio JacksonMRN: [id number]: 10/09/2017Time: 8:16 JUDIE DATE: 09/30/20179 Days Post-OpProcedure(s) [...] on POD 3 nml, removed. Transferred to [facility]??Patient did well overnight with no acute [...] (195 lb 12.3 oz) SpO2 96% BMI29.77 kg/x5Iszmic/Output Summary (Last 24 hours) at 10/09/17 0952Last [...] 3.6 3.5Liver Function, Amylase, AND LipaseRecent Labs 10/09/1803487842KBKPF 6.5 6.7 6.6 7.3 < > 5.8*ALB 3.1* 3.3* 3.2* 3.4* < > 3.1*ALT 26 31 32 28 < > 46AST 20 25 30 23 < > 48*ALKPHOS 101 106 106 108 < > 91TBILI 0.2 0.2 0.2 0.2 < > 0.5LACT -- -- -- -- -- 2.3*< > = values in this interval not displayed.CoagsRecent Labs 9508/17/1807236363FVXZ 25.9 24.9 -- -- 39.8* 31.6INR 1.2 1.1 1.0 2.0* 2.0* 1.5*Tasha Fishert, PGY-1 - General SurgeryPager [phone] [facility] THERAPY NTon 10-09-2017 THERAPY NT HNO ID: [id number] thor: Alicia Sinhaervice: Occupational TherapyAuthor Type: Occupational TherapistType: Therapy (PT/OT/Speech/Resp)Filed: 10/09/2017 3:06 PMNote Text:OCCUPATIONAL THERAPY MISSED VISITSERVICE DATE: 10/09/2017SERVICE TIME: 1400 to 1400ROOM: MO-QY9J-97Zczwrqeme Treatment. Patient not seen due to (being D/C this pm).SIGNATURE: ALISA Ramires PATIENT NAME: Rocio Sibley: October 09, 2017 : 3:06 PM PAGER/CONTACT #:[phone] [facility] THERAPY NT HNO ID: [id number] thor: Saima Miranda (Cota)ervice: Occupational TherapyAuthor Type: Occupational Therapy AssistantType: Therapy (PT/OT/Speech/Resp)Filed: 10/09/2017 10:11 AMNote Text: -Attestation signed by Jacqueline Arshad at 10/09/2017 12:31 PMI reviewed and agree with the documentation corresponding to this therapyvisit.SIGNATURE: Jacqueline Arshad OTR/LDATE: October 09, 2017TIME: 12:31 PM OC CUPATIONAL THERAPY MISSED VISITSERVICE DATE: 10/09/2017SERVICE TIME: 1009 to 1009ROOM: WH-IG6T-27Fbqelzjtn Treatment. Patient not seen due to Sleeping. Nursing aware(Reggie)SIGNATURE: TRACY Dumont PATIENT NAME: Rocio VizcarraTE: October 09, 2017 : 10:10 AM PAGER/CONTACT #:[phone] [facility] CASE MANAGEMon 10-08-2017 CASE MANAGEM HNO ID: [id number] thor: Clementina KenBarnes-Kasson County HospitalLyric PezzuloService: Care ManagementAuthor Type: Social WorkerType: Care Mgt Progress NoteFiled: 10/08/2017 4:29 PMNote Text:MULTIDISCIPLINARY ROUNDSSERVICE DATE: 10/08/2017 ADMISSION DATE: 09/30/2017SERVICE TIME: 10:45 AM ANTICIPATED D/C DATE: 10/10/2017Problem List:ACTIVE PROBLEM LISTDuodenal ObstructionSevere Protein-Calorie Malnutrition (Hcc)Duodenal Cancer (Hcc)Attendees Present at Rounds:Feed Project Engineer: Jasbiramily: yPatient: Rocio Shaikh Nurse: Laura Discussed on Rounds:DietDischarge NeedsFamily ConcernsMobilityPlan of CareAnticipated Discharge Disposition:Chcf FacilityLast Vitals: BP 153/85 Pulse 90 Temp (Src) 97.9 (Oral) Resp 16 Ht5' 7.992 (1.73m) Wt 195 lb 12.3 oz (88.8kg) SpO2 97% BMI 29.77kg/(m2).Pt SNF vs [place]. Most likely SNFNursing:DOCUMENTED BY: TRACI Hammer PATIENT NAME: Rocio JacksonDATE: October 08, 2017 : 4:27 PM CSN: [id number] [facility] CASE MANAGEM HNO ID: [id number] thor: Clementina Florez) Marirvice: Care ManagementAuthor Type: Social WorkerType: Care Mgt Progress NoteFiled: 10/08/2017 4:37 PMNote Text:CARE MANAGEMENT PROGRESS NOTESERVICE DATE: 10/08/2017SERVICE TIME: 1:16 PM LOS: 8 daysNeeds Prior to Discharge: Precertification;Accepting Facility;Other: SeeComment (Pt [facility] not able to accept Pt AND feel Pt best suited for SNF. Familymet w Liaison from [facility] who is willing to accept although waitingon acceptance from 1st choice [facility])CM phoned and left message inquiring on acceptance of Pt for intake -Denise Garcia.ADDENDUM: 1630: Per Paty at [facility] Pt Insurance is Out ofNetwork. CM met with Pt bedside. Pt sister present, CM discussedinsurance and Pt SNF choices. Per Pt he [facility] CM requested precert to begin.SIGNATURE: TRACI Hammer PATIENT NAME: Rocio TorresdonnyDATE: October 08, 2017 : 1:16 PM PAGER/CONTACT #: [phone] [facility] CASE MANAGEM HNO ID: [id number] thor: Clementina Holland (Lsw)ice: Care ManagementAuthor Type: [...] is present. Per Ptand sister they [facility] [place] ([place]) CM spoke w/alina Sarabia [phone] in admission whowill review Pt to determine acceptance. [facility] CM sent referrals.SIGNATURE: TRACI Hammer PATIENT NAME: Rociomarisa JacksonDATE: October 08, 2017 : 9:08 AM PAGER/CONTACT #: [phone] Normal [facility] CBC and Differentialon 10-08 Abs Baso <0.03 Normal <0.11 [facility] Comment on above: Performed By: #### P T, PTT, AMYL, CMP, LIPA, PHOS ####[place] [address]#### TRANSF ####[place] [phone] Abs [place] 0.38 k/uL Normal <0.87 [facility] Comment on above: Performed By: #### P T, PTT, AMYL, CMP, LIPA, PHOS ####[place] [address]#### TRANSF ####[place] [phone] Abs Neut 4.15 k/uL Normal 1.45-7.50 [facility] Comment on above: Performed By: #### P T, PTT, AMYL, CMP, LIPA, PHOS ####[place] [address]#### TRANSF ####[place] [phone] Basophils/100 WBC Auto (Bld) 0.3 % Normal [facility] Comment on above: Performed By: #### P T, PTT, AMYL, CMP, LIPA, PHOS ####[place] [address]#### TRANSF ####[place] [address] [address] [place] [phone] DTYPE Auto Diff Normal [facility] Comment on above: Performed By: #### P T, PTT, AMYL, CMP, LIPA, PHOS ####[place] [address]#### TRANSF ####[place] [phone] Eosinophils 0.07 10*3/uL Normal <0.46 [facility] Comment on above: Performed By: #### P T, PTT, AMYL, CMP, LIPA, PHOS ####[place] [address]#### TRANSF ####[place] [phone] Eosinophils/100 leukocytes 1.1 % Normal [facility] Comment on above: Performed By: #### P T, PTT, AMYL, CMP, LIPA, PHOS ####[place] [address]#### TRANSF ####[place] [address] [place] [place] [phone] Erythrocyte distribution width Auto Ratio (RBC) 16.8 % High 11.5-15.0 [facility] Comment on above: Performed By: #### P T, PTT, AMYL, CMP, LIPA, PHOS ####[place] [address]#### TRANSF ####[address] [place] [phone] Erythrocytes (RBC) 3.72 10*6/uL Low 4.20-6.00 [facility] Comment on above: Performed By: #### P T, PTT, AMYL, CMP, LIPA, PHOS ####[place] [address]#### TRANSF ####[place] [phone] Hematocrit (HCT) 29.5 % Low 39.0-51.0 [facility] Comment on above: Performed By: #### P T, PTT, AMYL, CMP, LIPA, PHOS ####[place] [address]#### TRANSF ####[place] [phone] Hemoglobin mass conc (Bld) 9.4 g/dL Low 13.0-17.0 [facility] Comment on above: Performed By: #### P T, PTT, AMYL, CMP, LIPA, PHOS ####[place] [address]#### TRANSF ####[place] [phone] Lymphocytes 1.91 10*3/uL Normal 1.00-4.00 [facility] Comment on above: Performed By: #### P T, PTT, AMYL, CMP, LIPA, PHOS ####[place] [address]#### TRANSF ####[place] [phone] Lymphocytes/100 leukocytes 29.2 % Normal [facility] Comment on above: Performed By: #### P T, PTT, AMYL, CMP, LIPA, PHOS ####[place] [address]#### TRANSF ####[place] [phone] MCH 25.3 pG Low 26.0-34.0 [facility] Comment on above: Performed By: #### P T, PTT, AMYL, CMP, LIPA, PHOS ####[place] [address]#### TRANSF ####[place] [phone] MCHC mass conc (RBC) 31.9 g/dL Normal 30.5-36.0 [facility] Comment on above: Performed By: #### P T, PTT, AMYL, CMP, LIPA, PHOS ####[place] [address]#### TRANSF ####[place] [phone] MCV 79.3 fL Low 80.0-100.0 [facility] Comment on above: Performed By: #### P T, PTT, AMYL, CMP, LIPA, PHOS ####[place] [address]#### TRANSF ####[place] [phone] Monocytes/100 leukocytes 5.8 % Normal [facility] Comment on above: Performed By: #### P T, PTT, AMYL, CMP, LIPA, PHOS ####[place] [address]#### TRANSF ####[place] [phone] Neutrophils/100 WBC Auto (Bld) 63.6 % Normal [facility] Comment on above: Performed By: #### P T, PTT, AMYL, CMP, LIPA, PHOS ####[place] [address]#### TRANSF ####[place] [phone] Platelet mean volume (PMV) 9.3 fL Normal 9.0-12.7 [facility] Comment on above: Performed By: #### P T, PTT, AMYL, CMP, LIPA, PHOS ####[place] [address]#### TRANSF ####[place] [phone] Platelets 370 10*3/uL Normal 150-400 [facility] Comment on above: Performed By: #### P T, PTT, AMYL, CMP, LIPA, PHOS ####[place] [address]#### TRANSF ####[place] [phone] WBC (Leukocytes) 6.53 10*3/uL Normal 3.70-11.00 [facility] Comment on above: Performed By: #### P T, PTT, AMYL, CMP, LIPA, PHOS ####[place] [address]#### TRANSF ####[place] [phone] CONSULT PROGon 10-08-2017 CONSULT PROG HNO ID: [id number] thor: Damaris Rojasice: EndocrinologyAuthor Type: PhysicianType: Consult Progress NoteFiled: 10/09/2017 9:48 AMNote Text:ENDOCRINOLOGY PROGRESS NOTEPATIENT NAME: Rocio JacksonMRN: [id number] DATE: 10/08/2017SERVICE TIME: 5:27 PMREASON FOR CONSULT: [...] with pRBC on 10/02/2017 so obtaining a BzW5pheo will not be helpful. He is receiving [...] Date- ANGIOPLASTY HX 05/15/2011 2 stents s/p [place];[facility]- CHOLECYSTECTOMY 08/11/2017 [facility]- PICC LINE INSERT/CONSULT 08/16/2017No family history on [...] PRN Yrn Cedillo)Gonzalo 5 mg at 10/07/17 2770cescsm-cvfigmep-finoxte 2 capsule cap(s) (CREON 24) 2 capsule ORAL TID wMEALS Flynn (Res) MD Jane 2 capsule at 10/08/17 0830phenol 1 [place] (CHLORASEPTIC) 1 [place] MUCOUS MEMBRANE (TOPICAL MOUTH ANDTHROAT) q 2 H PRN Kolby (Res) Kevin 1 [place] at 10/02/17 17335.9% NaCl 2-10 mL 2-10 mL INTRAVENOUS q [...] lb 12.3 oz) SpO2 97% BMI 29.77 kg/j7Rjeywmy: Well appearing, sleeping, in no acute distress.Skin: [...] 172 (A) 21/06/2018 1:17 PM 199 (A) G7Yzqxslcev Latest Ref Rng AND Units 10/07/2017 10/08/2017 [...] MDDATE: October 08, 2017TIME: 5:27 PM Normal [facility] Comp Metabolic Panelon 10-08 Alanine aminotransferase (ALT) 31 U/L Normal 5-50 [facility] Comment on above: Performed By: #### P T, PTT, AMYL, CMP, LIPA, PHOS ####[facility] [place], [place] [phone]#### TRANSF ####[facility] [address] [place], [place] [phone] Albumin 3.3 g/dL Low 3.5-5.0 [facility] Comment on above: Performed By: #### P T, PTT, AMYL, CMP, LIPA, PHOS ####[place] [address]#### TRANSF ####[place] [phone] Alkaline phosphatase (ALP) 106 U/L Normal 40-150 [facility] Comment on above: Performed By: #### P T, PTT, AMYL, CMP, LIPA, PHOS ####[place] [address]#### TRANSF ####[place] [phone] Anion gap 13 mmol/L Normal 9-18 [facility] Comment on above: Performed By: #### P T, PTT, AMYL, CMP, LIPA, PHOS ####[place] [address]#### TRANSF ####[place] [address] Aspartate aminotransferase (AST) 25 U/L Normal 7-40 [facility] Comment on above: Performed By: #### P T, PTT, AMYL, CMP, LIPA, PHOS ####[place] [address]#### TRANSF ####[place] [phone] Bilirubin (total) 0.2 mg/dL Normal 0.0-1.5 [facility] Comment on above: Performed By: #### P T, PTT, AMYL, CMP, LIPA, PHOS ####[place] [address]#### TRANSF ####[place] [phone] Calcium 8.8 mg/dL Normal 8.5-10.5 [facility] Comment on above: Performed By: #### P T, PTT, AMYL, CMP, LIPA, PHOS ####[place] [address]#### TRANSF ####[place] [phone] Chloride 102 mmol/L Normal 98-110 [facility] Comment on above: Performed By: #### P T, PTT, AMYL, CMP, LIPA, PHOS ####[place] [address]#### TRANSF ####[place] [phone] CO2 26 mmol/L Normal 23-32 [facility] Comment on above: Performed By: #### P T, PTT, AMYL, CMP, LIPA, PHOS ####[place] [address]#### TRANSF ####[place] [phone] Creatinine 0.55 mg/dL Low 0.70-1.40 [facility] Comment on above: Performed By: #### P T, PTT, AMYL, CMP, LIPA, PHOS ####[place] [address]#### TRANSF ####[place] [phone] eGFR (non-black) mL/min/{1.73_m2} Normal >60 [facility] Comment on above: Performed By: #### P T, PTT, AMYL, CMP, LIPA, PHOS ####[place] [address]#### TRANSF ####[place] [phone] Glucose mass conc 152 mg/dL High 65-100 [facility] Comment on above: Performed By: #### P T, PTT, AMYL, CMP, LIPA, PHOS ####[place] [address]#### TRANSF ####[place] [phone] Potassium molar conc 3.8 mmol/L Normal 3.5-5.0 [facility] Comment on above: Performed By: #### P T, PTT, AMYL, CMP, LIPA, PHOS ####[place] [address]#### TRANSF ####[place] [phone] Protein 6.7 g/dL Normal 6.0-8.4 [facility] Comment on above: Performed By: #### P T, PTT, AMYL, CMP, LIPA, PHOS ####[place] [address]#### TRANSF ####[place] [phone] Sodium 141 mmol/L Normal 135-146 [facility] Comment on above: Performed By: #### P T, PTT, AMYL, CMP, LIPA, PHOS ####[place] [address]#### TRANSF ####[place] [phone] Urea nitrogen 18 mg/dL Normal 10-25 [facility] Comment on above: Performed By: #### P T, PTT, AMYL, CMP, LIPA, PHOS ####[place] [address]#### TRANSF ####[place] [phone] NURSING PROGon 10-08-2017 NURSING PROG HNO ID: [id number] thor: Reggie (Rn) MOUSTAPHA Sawantervice: (none)Author Type: Registered NurseType: Nursing Progress NoteFiled: 10/08/2017 8:55 AMNote Text: Nursing Progress NotePatient Name: Rocio HayesN: [id number] Location: [address]/RA-SR8J-95 ____Daily Note: Mr. Jackson awake and alert [...] was completed by: Reggie Sawant RN [facility] PROGRESSon 10-08-2017 PROGRESS HNO ID: [id number] thor: Salvador (Georges) ASHLEY Birminghamervice: General SurgeryAuthor Type: ResidentType: Progress NotesFiled: 10/08/2017 9:38 AMNote Text:SURGICAL SERVICES PROGRESS NOTENAME: Rocio JacksonMRN: [id number]: 10/08/2017Time: 8:16 JUDIE DATE: 09/30/20178 Days Post-OpProcedure(s) [...] on POD 3 nml, removed. Transferred to [facility]??Patient did well overnight with no acute [...] lb 12.3 oz) SpO2 97% BMI 29.77 kg/q6Piogul/Output Summary (Last 24 hours) at 10/08/17 0936Last [...] 2.0* 1.5*Poonam Fisher, PGY-1 - General SurgeryPager [phone] [facility] ALLIED HEALTHon 10-07-2017 ALLIED HEALTH HNO ID: [id number] thor: Allegra Bruce) Lea Espitia: RadiologyAuthor Type: TechnicianType: Allied HealthFiled: 10/07/2017 12:43 PMNote Text: Radiology Service Progress NotePATIENT NAME: Rocio HayesN: [id number] OF SERVICE: October 07, 2017TIME: 12:42 PMPATIENT IDENTITY VERIFICATION COMPLETED USING TWO (2) METHODS: Patientconfirmed name verbally and ID band matches..PATIENT GENDER DATA: MalePATIENT RELEVANT IMPLANT DATA REVIEWED: Not ApplicableRADIOLOGY DEPARTMENT: General X-ray: Exam(s) Completed: Chest X-RayAbdomen X-Ray Abdomen Supine / AP ErectPERIPHERAL IV DATA: Not applicableSIGNED BY: Omkar Dinh RTApril 2017 12:42 PM [facility] CASE MANAGEMon 10-07-2017 CASE MANAGEM HNO ID: [id number] thor: Clementina Culver (Lsw)uloService: Care ManagementAuthor Type: [...] ratings. Pt and [facility]. Per Pt and sisters they would like toreview list and facilities and provided choices in the morning. CMdiscussed w/nursing.SIGNATURE: TRACI Hammer PATIENT NAME: Rocio JacksonDATE: October 07, 2017 : 12:32 PM PAGER/CONTACT #: [phone] Normal [facility] CBC and Differentialon 10-07 Abs Baso <0.03 Normal <0.11 [facility] Comment on above: Performed By: #### P T, PTT, AMYL, CMP, LIPA, PHOS ####[place] [phone]#### TRANSF ####[facility] [place] [phone] Abs [place] 0.49 k/uL Normal <0.87 [facility] Comment on above: Performed By: #### P T, PTT, AMYL, CMP, LIPA, PHOS ####[place] [phone]#### TRANSF ####[place] [address] [place] [phone] Abs Neut 4.36 k/uL Normal 1.45-7.50 [facility] Comment on above: Performed By: #### P T, PTT, AMYL, CMP, LIPA, PHOS ####[place] [address]#### TRANSF ####[address] [place] [phone] Basophils/100 WBC Auto (Bld) 0.1 % Normal [facility] Comment on above: Performed By: #### P T, PTT, AMYL, CMP, LIPA, PHOS ####[place] [address]#### TRANSF ####[place] [phone] DTYPE Auto Diff Normal [facility] Comment on above: Performed By: #### P T, PTT, AMYL, CMP, LIPA, PHOS ####[place] [address]#### TRANSF ####[place] [phone] Eosinophils 0.04 10*3/uL Normal <0.46 [facility] Comment on above: Performed By: #### P T, PTT, AMYL, CMP, LIPA, PHOS ####[place] [address]#### TRANSF ####[place] [phone] Eosinophils/100 leukocytes 0.6 % Normal [facility] Comment on above: Performed By: #### P T, PTT, AMYL, CMP, LIPA, PHOS ####[place] [address]#### TRANSF ####[address] [place] [phone] Erythrocyte distribution width Auto Ratio (RBC) 16.8 % High 11.5-15.0 [facility] Comment on above: Performed By: #### P T, PTT, AMYL, CMP, LIPA, PHOS ####[place] [address]#### TRANSF ####[place] [phone] Erythrocytes (RBC) 3.55 10*6/uL Low 4.20-6.00 [facility] Comment on above: Performed By: #### P T, PTT, AMYL, CMP, LIPA, PHOS ####[place] [address]#### TRANSF ####[place] [phone] Hematocrit (HCT) 28.9 % Low 39.0-51.0 [facility] Comment on above: Performed By: #### P T, PTT, AMYL, CMP, LIPA, PHOS ####[place] [address]#### TRANSF ####[place] [phone] Hemoglobin mass conc (Bld) 8.9 g/dL Low 13.0-17.0 [facility] Comment on above: Performed By: #### P T, PTT, AMYL, CMP, LIPA, PHOS ####[place] [address]#### TRANSF ####[place] [phone] Lymphocytes 1.89 10*3/uL Normal 1.00-4.00 [facility] Comment on above: Performed By: #### P T, PTT, AMYL, CMP, LIPA, PHOS ####[place] [address]#### TRANSF ####[place] [phone] Lymphocytes/100 leukocytes 27.8 % Normal [facility] Comment on above: Performed By: #### P T, PTT, AMYL, CMP, LIPA, PHOS ####[place] [address]#### TRANSF ####[place] [phone] MCH 25.1 pG Low 26.0-34.0 [facility] Comment on above: Performed By: #### P T, PTT, AMYL, CMP, LIPA, PHOS ####[place] [address]#### TRANSF ####[place] [phone] MCHC mass conc (RBC) 30.8 g/dL Normal 30.5-36.0 [facility] Comment on above: Performed By: #### P T, PTT, AMYL, CMP, LIPA, PHOS ####[place] [address]#### TRANSF ####[place] [phone] MCV 81.4 fL Normal 80.0-100.0 [facility] Comment on above: Performed By: #### P T, PTT, AMYL, CMP, LIPA, PHOS ####[place] [address]#### TRANSF ####[place] [phone] Monocytes/100 leukocytes 7.2 % Normal [facility] Comment on above: Performed By: #### P T, PTT, AMYL, CMP, LIPA, PHOS ####[place] [address]#### TRANSF ####[place] [phone] Neutrophils/100 WBC Auto (Bld) 64.3 % Normal [facility] Comment on above: Performed By: #### P T, PTT, AMYL, CMP, LIPA, PHOS ####[place] [phone]#### TRANSF ####[place] [phone] Platelet mean volume (PMV) 9.2 fL Normal 9.0-12.7 [facility] Comment on above: Performed By: #### P T, PTT, AMYL, CMP, LIPA, PHOS ####[address]#### TRANSF ####[place] [phone] Platelets 329 10*3/uL Normal 150-400 [facility] Comment on above: Performed By: #### P T, PTT, AMYL, CMP, LIPA, PHOS ####[address]#### TRANSF ####[place] [phone] WBC (Leukocytes) 6.79 10*3/uL Normal 3.70-11.00 [facility] Comment on above: Performed By: #### P T, PTT, AMYL, CMP, LIPA, PHOS ####[place] [phone]#### TRANSF ####[place] [phone] Comp Metabolic Panelon 10-07 Alanine aminotransferase (ALT) 32 U/L Normal 5-50 [facility] Comment on above: Performed By: #### P T, PTT, AMYL, CMP, LIPA, PHOS ####[address]#### TRANSF ####[place] [phone] Albumin 3.2 g/dL Low 3.5-5.0 [facility] Comment on above: Performed By: #### P T, PTT, AMYL, CMP, LIPA, PHOS ####[place] [address]#### TRANSF ####[place] [phone] Alkaline phosphatase (ALP) 106 U/L Normal 40-150 [facility] Comment on above: Performed By: #### P T, PTT, AMYL, CMP, LIPA, PHOS ####[place] [address]#### TRANSF ####[place] [phone] Anion gap 11 mmol/L Normal 9-18 [facility] Comment on above: Performed By: #### P T, PTT, AMYL, CMP, LIPA, PHOS ####[place] [address]#### TRANSF ####[place] [address] Aspartate aminotransferase (AST) 30 U/L Normal 7-40 [facility] Comment on above: Performed By: #### P T, PTT, AMYL, CMP, LIPA, PHOS ####[place] [address]#### TRANSF ####[place] [phone] Bilirubin (total) 0.2 mg/dL Normal 0.0-1.5 [facility] Comment on above: Performed By: #### P T, PTT, AMYL, CMP, LIPA, PHOS ####[place] [phone]#### TRANSF ####[place] [phone] Calcium 8.8 mg/dL Normal 8.5-10.5 [facility] Comment on above: Performed By: #### P T, PTT, AMYL, CMP, LIPA, PHOS ####[place] [address]#### TRANSF ####[place] [address] Chloride 104 mmol/L Normal 98-110 [facility] Comment on above: Performed By: #### P T, PTT, AMYL, CMP, LIPA, PHOS ####[place] [address]#### TRANSF ####[place] [address] CO2 27 mmol/L Normal 23-32 [facility] Comment on above: Performed By: #### P T, PTT, AMYL, CMP, LIPA, PHOS ####[place] [address]#### TRANSF ####[place] [address] Creatinine 0.60 mg/dL Low 0.70-1.40 [facility] Comment on above: Performed By: #### P T, PTT, AMYL, CMP, LIPA, PHOS ####[place] [address]#### TRANSF ####[place] [address] eGFR (non-black) mL/min/{1.73_m2} Normal >60 [facility] Comment on above: Performed By: #### P T, PTT, AMYL, CMP, LIPA, PHOS ####[place] [address]#### TRANSF ####[place] [phone] Glucose mass conc 175 mg/dL High 65-100 [facility] Comment on above: Performed By: #### P T, PTT, AMYL, CMP, LIPA, PHOS ####[place] [address]#### TRANSF ####[place] [phone] Potassium molar conc 4.1 mmol/L Normal 3.5-5.0 [facility] Comment on above: Performed By: #### P T, PTT, AMYL, CMP, LIPA, PHOS ####[place] [address]#### TRANSF ####[place] [phone] Protein 6.6 g/dL Normal 6.0-8.4 [facility] Comment on above: Performed By: #### P T, PTT, AMYL, CMP, LIPA, PHOS ####[place] [address]#### TRANSF ####[place] [phone] Sodium 142 mmol/L Normal 135-146 [facility] Comment on above: Performed By: #### P T, PTT, AMYL, CMP, LIPA, PHOS ####[place] [address]#### TRANSF ####[place] [phone] Urea nitrogen 20 mg/dL Normal 10-25 [facility] Comment on above: Performed By: #### P T, PTT, AMYL, CMP, LIPA, PHOS ####[place] [address]87176[address]#### TRANSF ####[phone] Magnesiumon 10-07-2017 Magnesium 2.0 mg/dL Normal 1.7-2.6 [facility] Comment on above: Performed By: #### P T, PTT, AMYL, CMP, LIPA, PHOS ####[place] [phone]#### TRANSF ####[phone] NURSING PROGon 10-07-2017 NURSING PROG HNO ID: [id number] thor: Kevin KenRn) Shanell, RNService: (none)Author Type: Registered NurseType: Nursing Progress NoteFiled: 10/07/2017 9:41 PMNote Text: Nursing Progress NotePatient Name: Rocio TorresBryannaN: [id number] Location: [place] [address]/[id number] ____Daily Note:Pt medicated per AUG. Pt AANDO x3. Pt with minimal pain- Administeredscheduled Tyl per orders. No SOB or headache. IV capped per orders. RUQdrain clamped per orders. Corpak with tube feed infusing per orders.Incision to abdomen- ADELA- C,D,I. No further needs. Call werner within reach.This note was completed by: KEVIN WALKER RN [facility] NURSING PROG HNO ID: [id number] thor: Saima KenRn) Debra, RNService: (none)Author Type: Registered NurseType: Nursing Progress NoteFiled: 10/07/2017 6:57 PMNote Text: Nursing Progress NotePatient Name: Rocio AbigailN: [id number] Location: [place] [address]/[id number] ____Daily Note:Pt resting in the bed and [...] was completed by: Saima Richardson RN Normal [facility] NURSING PROG HNO ID: [id number] thor: Kevin (Rn) MOUSTAPHA Walkerervice: (none)Author Type: Registered NurseType: Nursing Progress NoteFiled: 10/07/2017 1:21 AMNote Text: Nursing Progress NotePatient Name: Rocio JacksonMRN: [id number] Location: [place] [address]/[id number] ____Daily Note:2330- Took over care for pt. Pt assessed. Pt medicated per AUG. Pt AANDO x3.Pt with minimal pain- Administered scheduled Tyl per orders. No SOB orheadache. IV capped per orders. RUQ drain clamped per orders. Corpak withtube feed infusing per orders. 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 No furtherneeds. Call werner within reach.This note was completed by: KEVIN WALKER RN [facility] PLAN OF CAREon 10-07-2017 PLAN OF CARE HNO ID: [id number] thor: Macie Cruz (Pharmacist)Service: PharmacyAuthor Type: PharmacistType: Plan of CareFiled: 10/07/2017 2:09 PMNote Text:MEDICATION HISTORY AND MEDICATION RECONCILIATIONPatient Name:Destiney JacksonMRN: [id number]: 1955Source of history:Family: Reliability of source: Appears reliable,clearly identified: Medication name, Medication dose, Medication route,Medication frequency and IndicationsMedication Nonadherence Identified: No barriers notedThe above information represents the best possible medication history: YesReconciliation completed? Yes All ERP SPECIALIST medications addressed by LIPAdditional comments: N/AAllergies: ALLERGIESNo Known AllergiesCurrent ERP SPECIALIST Medications:Prior to Admission medications as of 10/07/17 [...] at 0900YePadmini Cruz, PharmacistApril 2017 2:09 PM [facility] PROGRESSon 10-07-2017 PROGRESS HNO ID: [id number] thor: Harmony (Fadi Villasenor: General SurgeryAuthor Type: ResidentType: Progress NotesFiled: 10/07/2017 8:27 AMNote Text:SURGICAL SERVICES PROGRESS NOTENAME: Rocio JacksonMRN: [id number]: 10/07/2017Time: 8:16 JUDIE DATE: 09/30/20177 Days Post-OpProcedure(s) [...] on POD 3 nml, removed. Transferred to [facility]??Patient did well overnight with no acute [...] ac/hsfor DGE- IPCs, SQH- Continue care on [facility]; will begin disposition planning todayPHYSICAL EXAM:GENERAL: AOx3, NADLUNGS: Nonlabored breathingABDOMEN: Soft, non-distendedSKIN: Warm, well perfusedBP 147/79 Pulse 63 Temp 37.3 ?C (99.1 ?F) (Oral) Resp 16 Ht 172.7cm (5' 7.99 ) Wt 88.8 kg (195 lb 12.3 oz) SpO2 97% BMI 29.77 kg/m2Date 10/06/17 0700 - 10/07/17 0659 10/07/17 07 - 10/08/17 0659Shift 0523-4850 1445-0744 7829-1011 24 Hour Total 5933-0405 9946-16934985-6990 24 Hour TotalINTAKE PO 956 956 Tube Feed Intake (GI Feed/Drain 09/30/17 Small Bore Feeding Right Naris10 Fr) 956 956 Irrigants 5 5 100 110 Irrigant/Flush Amount In (Drain/Tube 08/27/17 Admission to HospitalRight Upper Quadrant Abdomen Drain #3) 5 5 10 Irrigant/Flush Amount In (GI Feed/Drain 09/30/17 Small Bore FeedingRight Naris 10 Fr) 100 100 Shift Total 5 5 1056 1066OUTPUT Urine 400 516 880 0340 Void (ml) 400 164 924 3495 Emesis 150 150 Emesis (ml) 150 150 [...] 10/07/2017NURY Mejia II general surgery 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-greenPager [phone] - Personal [facility] PT EDon 10-07-2017 PT ED HNO ID: [id number] thor: Macie Cruz (Pharmacist)Service: PharmacyAuthor Type: PharmacistType: Patient EducationFiled: 10/07/2017 2:13 PMNote Text:Clinical Pharmacy ServicesHigh Risk: Daily Medication AssessmentPatient Name: Rocio HayesN: [id number] Date: 09/30/2017Service Date and Time: 10/07/2017 2:12 PMNew MedicationsThe following medications have been started since last pharmacy review:naloxone, oxycodone, chloraceptic, scopolamineMedication education has been completed: YesSignature: Macie Cruz PharmacistFairview: [phone]: [phone] [facility] PT ED HNO ID: [id number] thor: Macie Cruz (Pharmacist)Service: PharmacyAuthor Type: PharmacistType: Patient EducationFiled: 10/07/2017 2:12 PMNote Text:Clinical Pharmacy ServicesHigh Risk: Daily Medication AssessmentPatient Name: Rocio HayesN: [id number] Date: 09/30/2017Service Date and Time: 10/07/2017 2:11 PMNew MedicationsThe following medications have been started since last pharmacy review:lantus, humalog, creon, magnesium, metoclopramideMedication education has been completed: YesSignature: Macie Cruz PharmacistFairview: [phone]: [phone] [facility] PT ED HNO ID: [id number] thor: Macie Cruz (Pharmacist)Service: PharmacyAuthor Type: PharmacistType: Patient EducationFiled: 10/07/2017 2:11 PMNote Text:Clinical Pharmacy ServicesHigh Risk: Daily Medication AssessmentPatient Name: Rocio Boudreaux: [id number] Date: 09/30/2017Service Date and Time: 10/07/2017 2:10 PMNew MedicationsThe following medications have been started since last pharmacy review:dextrose, glucagon, erythromycin, fentanyl, heparinMedication education has been completed: YesSignature: Macie Anthony, PharmacistFairview: [phone]: [phone] Normal [facility] Phosphoruson 10-07-2017 Phosphate 3.0 mg/dL Normal 2.5-4.5 [facility] Comment on above: Performed By: #### P T, PTT, AMYL, CMP, LIPA, PHOS ####[facility] [place], [place] [phone]#### TRANSF ####[facility] [address] [place], [place] [phone] THERAPY NTon 10-07-2017 THERAPY NT HNO ID: [id number] thor: Adela (Joe) Carlin: Physical TherapyAuthor Type: Physical Therapy AssistantType: Therapy (PT/OT/Speech/Resp)Filed: 10/07/2017 11:18 AMNote Text: -Attestation signed by Tonia Schmitz at 10/07/2017 12:03 PMI reviewed and agree with the documentation corresponding to this therapyvisit.SIGNATURE: Tonia Schmitz, PTDATE: October 07, 2017TIME: 12:03 PM Ph ysical Therapy TreatmentSERVICE DATE: 10/07/2017SERVICE TIME: 1000 to 1025ROOM: [id number]/p Debra procedureRecommended Discharge Disposition: Home PTRecommended Discharge Disposition Comments: (pt to return [facility] )Justification For Post Acute Needs: Willing [...] present [facility]. Pt [...] l symptoms and signs-otherInterventions Provided: Therapeutic Exercise (44943);Gait Training (27168)Therapeutic Exercise (76449) Treatment Minutes: 101 unitSkilled Intervention(s): Instruction in therapeutic exercise in sittingposition for B LE strengtheningVerbal and tactile cuing provided for performance and pace.Gait Training (86718) Treatment Minutes: 151 unitSkilled Intervention(s): Instruction in [...] mobility assessmentRelevant Past Medical History: HTN, DM, [place], richelle 08/11/17, ARF, refer tochart for full [...] has assist with all IADLs. Works in [employer]. Amb Ind.OBJECTIVE:Mini Cog Score: 1 (10/02/17 0820)CURRENT [...] 07, 2017 : 11:15 AM PAGER/CONTACT #: [phone] [facility] XR ABD 2V SUPINE W UPR/DECUB /CTLon [...] MACK MD on Oct 07 2017 1:03PM [id number] [facility] XR CHEST 1V FRONTALon 2017 XR CHEST [...] silhouette: Normal cardiomediastinal silhouette.Other: .IMPRESSION:No acute radiographic abnormality.Complex Human Resources Manager : PSCB Transcribe Date/Time: Oct 07 2017 12:50PDictated by : RENATE MACK MDThimilly examination was interpreted and the report reviewed and electronically signed by: RENATE MACK MD on Oct 07 2017 1:02PM [id number] [facility] ALLIED HEALTHon 10-06-2017 ALLIED HEALTH HNO ID: [id number] thor: Huan Santoyo (Rt)Service: RadiologyAuthor Type: TechnicianType: Allied HealthFiled: 10/06/2017 6:41 AMNote Text: Radiology Service Progress NotePATIENT NAME: Rocio JacksonMRN: [id number] OF SERVICE: October 06, 2017TIME: 6:34 AMPATIENT IDENTITY VERIFICATION COMPLETED USING TWO (2) METHODS: Patientconfirmed name verbally and ID band matches..PATIENT GENDER DATA: MalePATIENT RELEVANT IMPLANT DATA REVIEWED: Not ApplicableRADIOLOGY DEPARTMENT: General X-ray: Exam(s) Completed: Abdomen X-RayAbdomenPERIPHERAL IV DATA: Not applicableSIGNED BY: Quique Santoyo 2017 6:41 AM [facility] CASE MANAGEMon 10-06-2017 CASE MANAGEM HNO ID: [id number] thor: Norberto Kramer (Noemi) PalumboService: Care ManagementAuthor Type: Social WorkerType: Care Mgt Progress NoteFiled: 10/06/2017 12:29 PMNote Text:MULTIDISCIPLINARY ROUNDSSERVICE DATE: 10/06/2017 ADMISSION DATE: 09/30/2017SERVICE TIME: 12:27 PM ANTICIPATED D/C DATE: 10/07/2017Problem List:ACTIVE PROBLEM LISTDuodenal ObstructionSevere Protein-Calorie Malnutrition (Hcc)Duodenal Cancer (Hcc)Attendees Present at Rounds:Feed Project Engineer:Nurse Ecommerce Manager/Solar Field Service Technician Nurse Ecommerce Manager:Shoeshiner:Staff Nurse:Needs Discussed on Rounds:Discharge NeedsAnticipated Discharge Disposition:Home with Home Health CareLast Vitals: BP 132/80 Pulse 79 Temp (Src) 98.7 (Oral) Resp 16 Ht5' 7.992 (1.73m) Wt 195 lb 12.3 oz (88.8kg) SpO2 96% BMI 29.77kg/(m2).Pt plans on going to his sister's house at d/c. He had [facility] PTAand would like them again at d/c. [...] October 06, 2017 : 12:27 PM CSN: [id number] Normal [facility] CBC and Differentialon 10-06 Abs Baso <0.03 Normal <0.11 [facility] Comment on above: Performed By: #### P T, PTT, AMYL, CMP, LIPA, PHOS ####[place] [address]#### TRANSF ####[place] [phone] Abs [place] 0.46 k/uL Normal <0.87 [facility] Comment on above: Performed By: #### P T, PTT, AMYL, CMP, LIPA, PHOS ####[place] [address]#### TRANSF ####[place] [phone] Abs Neut 4.56 k/uL Normal 1.45-7.50 [facility] Comment on above: Performed By: #### P T, PTT, AMYL, CMP, LIPA, PHOS ####[address]#### TRANSF ####[place] [phone] Basophils/100 WBC Auto (Bld) 0.1 % Normal [facility] Comment on above: Performed By: #### P T, PTT, AMYL, CMP, LIPA, PHOS ####[place] [phone]#### TRANSF ####[place] [phone] DTYPE Auto Diff Normal [facility] Comment on above: Performed By: #### P T, PTT, AMYL, CMP, LIPA, PHOS ####[place] [address]#### TRANSF ####[place] [phone] Eosinophils 0.03 10*3/uL Normal <0.46 [facility] Comment on above: Performed By: #### P T, PTT, AMYL, CMP, LIPA, PHOS ####[place] [address]#### TRANSF ####[place] [phone] Eosinophils/100 leukocytes 0.4 % Normal [facility] Comment on above: Performed By: #### P T, PTT, AMYL, CMP, LIPA, PHOS ####[place] [address]#### TRANSF ####[place] [phone] Erythrocyte distribution width Auto Ratio (RBC) 16.5 % High 11.5-15.0 [facility] Comment on above: Performed By: #### P T, PTT, AMYL, CMP, LIPA, PHOS ####[place] [address]#### TRANSF ####[place] [phone] Erythrocytes (RBC) 3.91 10*6/uL Low 4.20-6.00 [facility] Comment on above: Performed By: #### P T, PTT, AMYL, CMP, LIPA, PHOS ####[place] [address]#### TRANSF ####[place] [phone] Hematocrit (HCT) 31.3 % Low 39.0-51.0 [facility] Comment on above: Performed By: #### P T, PTT, AMYL, CMP, LIPA, PHOS ####[place] [address]#### TRANSF ####[place] [phone] Hemoglobin mass conc (Bld) 10.0 g/dL Low 13.0-17.0 [facility] Comment on above: Performed By: #### P T, PTT, AMYL, CMP, LIPA, PHOS ####[place] [address]#### TRANSF ####[place] [phone] Lymphocytes 1.97 10*3/uL Normal 1.00-4.00 [facility] Comment on above: Performed By: #### P T, PTT, AMYL, CMP, LIPA, PHOS ####[place] [address]#### TRANSF ####[place] [phone] Lymphocytes/100 leukocytes 28.0 % Normal [facility] Comment on above: Performed By: #### P T, PTT, AMYL, CMP, LIPA, PHOS ####[place] [address]#### TRANSF ####[place] [phone] MCH 25.6 pG Low 26.0-34.0 [facility] Comment on above: Performed By: #### P T, PTT, AMYL, CMP, LIPA, PHOS ####[place] [address]#### TRANSF ####[place] [phone] MCHC mass conc (RBC) 31.9 g/dL Normal 30.5-36.0 [facility] Comment on above: Performed By: #### P T, PTT, AMYL, CMP, LIPA, PHOS ####[place] [address]#### TRANSF ####[place] [phone] MCV 80.1 fL Normal 80.0-100.0 [facility] Comment on above: Performed By: #### P T, PTT, AMYL, CMP, LIPA, PHOS ####[place] [address]#### TRANSF ####[place] [phone] Monocytes/100 leukocytes 6.5 % Normal [facility] Comment on above: Performed By: #### P T, PTT, AMYL, CMP, LIPA, PHOS ####[place] [address]#### TRANSF ####[place] [phone] Neutrophils/100 WBC Auto (Bld) 65.0 % Normal [facility] Comment on above: Performed By: #### P T, PTT, AMYL, CMP, LIPA, PHOS ####[place] [address]#### TRANSF ####[place] [phone] Platelet mean volume (PMV) 9.2 fL Normal 9.0-12.7 [facility] Comment on above: Performed By: #### P T, PTT, AMYL, CMP, LIPA, PHOS ####[place] [phone]#### TRANSF ####[address] [phone] Platelets 358 10*3/uL Normal 150-400 [facility] Comment on above: Performed By: #### P T, PTT, AMYL, CMP, LIPA, PHOS ####[place] [phone]#### TRANSF ####[address] [phone] WBC (Leukocytes) 7.03 10*3/uL Normal 3.70-11.00 [facility] Comment on above: Performed By: #### P T, PTT, AMYL, CMP, LIPA, PHOS ####[place] [address]#### TRANSF ####[address] [phone] CONSULT PROGon 10-06-2017 CONSULT PROG HNO ID: [id number] thor: Damaris Formanervice: EndocrinologyAuthor Type: PhysicianType: Consult Progress NoteFiled: 10/06/2017 5:16 PMNote Text:ENDOCRINOLOGY PROGRESS NOTEPATIENT NAME: Rocio JacksonMRN: [id number] DATE: 10/06/2017SERVICE TIME: 5:07 PMREASON FOR CONSULT: [...] with pRBC on 10/02/2017 so obtaining a [id number] will not be helpful. Low dose Lantus was started yesterday. Bloodglucose in the 200 mg/dL range today. Patient is sleeping when I visithim today with family by bedside.PAST MEDICAL HISTORYDiagnosis Date- Bleeding ulcer 11/15/2016 required 5 blood transfusions- Diabetes mellitus (HCC) 2016- Glaucoma- Hypertension- Myocardial infarction (HCC) 05/15/2011PAST SURGICAL HISTORYProcedure Laterality Date- ANGIOPLASTY HX 05/15/2011 2 stents s/p [place];[facility]- CHOLECYSTECTOMY 08/11/2017 [facility]- PICC LINE INSERT/CONSULT 08/16/2017No family history on [...] PRN Yrn Cedillo)Gonzalo 5 mg at 10/05/17 3122ojalcg-ktlqozyo-julbwoe 2 capsule cap(s) (CREON 24) 2 capsule ORAL TID Tucker Pruett (Res) MD Jane 2 capsule at 10/04/17 1740phenol 1 [place] (CHLORASEPTIC) 1 [place] MUCOUS MEMBRANE (TOPICAL MOUTH ANDTHROAT) q 2 H PRN Kolby (Res) Kevin [address] [place] at 10/02/17 03746.9% NaCl 2-10 mL 2-10 mL INTRAVENOUS q 12 H Mundo (Res)(Hist) Kkxizbz56 mL at 10/06/17 0842naloxone 0.2 mg injection [...] lb 12.3 oz) SpO2 96% BMI 29.77 kg/y1Goyynqi: Well appearing, sleeping, in no acute distress.Skin: [...] 212 (A) 21/04/2018 12:12 PM 237 (A) [id number] Latest Ref Rng AND Units 10/06/2017 5:51 [...] MDDATE: October 06, 2017TIME: 5:07 PM Normal [facility] Comp Metabolic Panelon 10-06 Alanine aminotransferase (ALT) 28 U/L Normal 5-50 [facility] Comment on above: Performed By: #### P T, PTT, AMYL, CMP, LIPA, PHOS ####[place] [address]#### TRANSF ####[place] [phone] Albumin 3.4 g/dL Low 3.5-5.0 [facility] Comment on above: Performed By: #### P T, PTT, AMYL, CMP, LIPA, PHOS ####[place] [address]#### TRANSF ####[place] [phone] Alkaline phosphatase (ALP) 108 U/L Normal 40-150 [facility] Comment on above: Performed By: #### P T, PTT, AMYL, CMP, LIPA, PHOS ####[place] [address]#### TRANSF ####[place] [phone] Anion gap 16 mmol/L Normal 9-18 [facility] Comment on above: Performed By: #### P T, PTT, AMYL, CMP, LIPA, PHOS ####[place] [address]#### TRANSF ####[place] [phone] Aspartate aminotransferase (AST) 23 U/L Normal 7-40 [facility] Comment on above: Performed By: #### P T, PTT, AMYL, CMP, LIPA, PHOS ####[place] [address]#### TRANSF ####[place] [phone] Bilirubin (total) 0.2 mg/dL Normal 0.0-1.5 [facility] Comment on above: Performed By: #### P T, PTT, AMYL, CMP, LIPA, PHOS ####[place] [address]#### TRANSF ####[place] [phone] Calcium 9.2 mg/dL Normal 8.5-10.5 [facility] Comment on above: Performed By: #### P T, PTT, AMYL, CMP, LIPA, PHOS ####[place] [address]#### TRANSF ####[place] [phone] Chloride 103 mmol/L Normal 98-110 [facility] Comment on above: Performed By: #### P T, PTT, AMYL, CMP, LIPA, PHOS ####[place] [address]#### TRANSF ####[place] [phone] CO2 24 mmol/L Normal 23-32 [facility] Comment on above: Performed By: #### P T, PTT, AMYL, CMP, LIPA, PHOS ####[place] [address]#### TRANSF ####[place] [phone] Creatinine 0.54 mg/dL Low 0.70-1.40 [facility] Comment on above: Performed By: #### P T, PTT, AMYL, CMP, LIPA, PHOS ####[place] [address]#### TRANSF ####[place] [address] eGFR (non-black) mL/min/{1.73_m2} Normal >60 [facility] Comment on above: Performed By: #### P T, PTT, AMYL, CMP, LIPA, PHOS ####[place] [address]#### TRANSF ####[place] [address] Glucose mass conc 208 mg/dL High 65-100 [facility] Comment on above: Performed By: #### P T, PTT, AMYL, CMP, LIPA, PHOS ####[place] [address]#### TRANSF ####[place] [address] Potassium molar conc 4.3 mmol/L Normal 3.5-5.0 [facility] Comment on above: Performed By: #### P T, PTT, AMYL, CMP, LIPA, PHOS ####[place] [address]#### TRANSF ####[place] [phone] Protein 7.3 g/dL Normal 6.0-8.4 [facility] Comment on above: Performed By: #### P T, PTT, AMYL, CMP, LIPA, PHOS ####[place] [address]#### TRANSF ####[place] [phone] Sodium 143 mmol/L Normal 135-146 [facility] Comment on above: Performed By: #### P T, PTT, AMYL, CMP, LIPA, PHOS ####[place] [address]#### TRANSF ####[place] [phone] Urea nitrogen 16 mg/dL Normal 10-25 [facility] Comment on above: Performed By: #### P T, PTT, AMYL, CMP, LIPA, PHOS ####[place] [address]#### TRANSF ####[place] [phone] Magnesiumon 10-06-2017 Magnesium 2.0 mg/dL Normal 1.7-2.6 [facility] Comment on above: Performed By: #### P T, PTT, AMYL, CMP, LIPA, PHOS ####[place] [address]#### TRANSF ####[place] [phone] NURSING PROGon 10-06-2017 NURSING PROG HNO ID: [id number] thor: Pramod (Rn) MOUSTAPHA Mckennaervice: (none)Author Type: Registered NurseType: Nursing Progress NoteFiled: 10/06/2017 6:57 PMNote Text: Nursing Progress NotePatient Name: Rocio JacksonMRN: [id number] Location: [place] [address]/WJ-[id number]-[id number] ____Daily Note:10/06/17 0800 (late entry)- Patient is [...] was completed by: Pramod Mckenna RN Normal [facility] NURSING PROG HNO ID: [id number] thor: Jennifer Humphries (Rn) MOUSTAPHA Websterervice: (none)Author Type: Registered NurseType: Nursing Progress NoteFiled: 10/06/2017 6:15 AMNote Text: Nursing Progress NotePatient Name: Rocio JacksonMRN: [id number] Location: [place] [address]/QI-[id number]-[id number] ____ Text page sent to surgical oncologist to notify again that pt had tncvmof954mv emesis of bile (no tube feed color in any emesis tonight).This note was completed by: Jennifer Webster RN [facility] NURSING PROG HNO ID: [id number] thor: Jennifer Humphries (Rn) Eleanor, RNService: (none)Author Type: Registered NurseType: Nursing Progress NoteFiled: 10/06/2017 3:17 AMNote Text: Nursing Progress NotePatient Name: Rocio JacksonMRN: [id number] Location: [place] [address]/KW-[id number]-[id number] ____ Pt with two episodes of emesis [...] was completed by: Jennifer Webster RN [facility] NUTRITIONon 10-06-2017 NUTRITION HNO ID: [id number] thor: Alise Segura) BlayneaService: Nutrition TherapyAuthor Type: [...] 81 kgResting Metabolic Rate: 1599Estimated kilocalorie needs: 6754-8716 kilocalories determined by 20-25kcal/kgEstimated protein needs: 105-138 grams determined by 1.3-1.7 g/kg DosingweightEstimated fluid needs: 5500-3572 milliliters based on 1 mL per kcalNUTRITION [...] lb 12.3 oz) SpO2 96% BMI 29.77 kg/q8Vdnxxm Labs 386127EIXN 208*BUN 16CREAT 0.54*NA 143K 4.3CHLOR 103CO2 24ALB [...] (ROXICODONE) 5 mg ORAL q 4 H FLYuwibwo-jpjutzza-zumjaub 2 capsule cap(s) (CREON 24) 2 capsule ORAL TID wMEALSphenol 1 [place] (CHLORASEPTIC) [address] [place] MUCOUS MEMBRANE (TOPICAL MOUTH ANDTHROAT) q 2 [...] 10/03/17 0659 10/03/17 0700 - 10/04/17 0659 10/04/860480 - 10/05/17 0659 10/05/17 0700 - 10/06/17 [...] assistance and weekends please page theGroup Pager [phone] [facility] PROGRESSon 10-06-2017 PROGRESS HNO ID: [id number] thor: Michael Cedillo) AugustinService: General SurgeryAuthor Type: PhysicianType: Progress NotesFiled: 10/06/2017 6:29 PMNote Text:SURGICAL SERVICES PROGRESS NOTENAME: Rocio JacksonMRN: [id number]: 10/06/2017Time: 10:09 JUDIE DATE: 09/30/20175 Days Post-OpProcedure(s) [...] on POD 3 nml, removed. Transferred to [facility]?Large volume of emesis past 24 hours [...] ac/hsfor DGE- IPCs, SQH- Continue care on [facility]; will begin disposition planning todaySubjective:AFVSSBilious emesis overnight (2L past 24 hours)No evidence of TF in emesis per nursingBM x4 recordedPHYSICAL EXAM:GENERAL: no acute distressABDOMEN: soft, nontender, mildly distended. Incision c/d/i. [place] drainingyellow-red urine.BP 147/86 Pulse 90 Temp 37.1 ?C (98.7 ?F) (Oral) Resp 17 Ht 172.7cm (5' 7.99 ) Wt 88.8 kg (195 lb 12.3 oz) SpO2 96% BMI 29.77 kg/o7Zndlpg/Output Summary (Last 24 hours) at 10/06/17 1008Last [...] values in this interval not displayed.CoagsRecent Labs 09/24/1808/612657 176039CPEJ 25.9 24.9 -- -- 39.8* 31.6INR 1.2 1.1 1.0 2.0* 2.0* 1.5*Imaging:KUB (10/05/17):IMPRESSION:No dilated loops of bowel. ?Postsurgical changes.Salvador Birmingham MDResident General Surgery Normal [facility] Phosphoruson 10-06-2017 Phosphate 3.2 mg/dL Normal 2.5-4.5 [facility] Comment on above: Performed By: #### P T, PTT, AMYL, CMP, LIPA, PHOS ####[facility] [place], [place] [phone]#### TRANSF ####[facility] [place], [place] [phone] XR ABDOMEN 1V SPECIFYon 09-27 XR ABDOMEN [...] indeterminate etiology.IMPRESSION:No dilated loops of bowel. Postsurgical changes.Complex Human Resources Manager: PSCB Transcribe Date/Time: Oct 06 2017 6:41ADictated by : MELCHOR OSBORN MDThis examination was interpreted and the report reviewed and electronically signed by: MELCHOR OSBORN MD on Oct 06 2017 6:45AM [id number] Normal [facility] CBC and Differentialon 10-05 Abs Baso <0.03 Normal <0.11 [facility] Comment on above: Performed By: #### P T, PTT, AMYL, CMP, LIPA, PHOS ####[place] [address]#### TRANSF ####[place] [address] [place] [phone] Abs [place] 0.47 k/uL Normal <0.87 [facility] Comment on above: Performed By: #### P T, PTT, AMYL, CMP, LIPA, PHOS ####[place] [address]#### TRANSF ####[place] [phone] Abs Neut 3.08 k/uL Normal 1.45-7.50 [facility] Comment on above: Performed By: #### P T, PTT, AMYL, CMP, LIPA, PHOS ####[place] [address]#### TRANSF ####[place] [phone] Basophils/100 WBC Auto (Bld) 0.2 % Normal [facility] Comment on above: Performed By: #### P T, PTT, AMYL, CMP, LIPA, PHOS ####[place] [address]#### TRANSF ####[place] [phone] DTYPE Auto Diff Normal [facility] Comment on above: Performed By: #### P T, PTT, AMYL, CMP, LIPA, PHOS ####[place] [address]#### TRANSF ####[address] [place] [phone] Eosinophils 0.23 10*3/uL Normal <0.46 [facility] Comment on above: Performed By: #### P T, PTT, AMYL, CMP, LIPA, PHOS ####[place] [address]#### TRANSF ####[address] [place] [phone] Eosinophils/100 leukocytes 4.1 % Normal [facility] Comment on above: Performed By: #### P T, PTT, AMYL, CMP, LIPA, PHOS ####[place] [address]#### TRANSF ####[place] [phone] Erythrocyte distribution width Auto Ratio (RBC) 16.3 % High 11.5-15.0 [facility] Comment on above: Performed By: #### P T, PTT, AMYL, CMP, LIPA, PHOS ####[place] [address]#### TRANSF ####[place] [phone] Erythrocytes (RBC) 4.00 10*6/uL Low 4.20-6.00 [facility] Comment on above: Performed By: #### P T, PTT, AMYL, CMP, LIPA, PHOS ####[place] [address]#### TRANSF ####[place] [phone] Hematocrit (HCT) 32.0 % Low 39.0-51.0 [facility] Comment on above: Performed By: #### P T, PTT, AMYL, CMP, LIPA, PHOS ####[place] [address]#### TRANSF ####[address] Av[address] [phone] Hemoglobin mass conc (Bld) 10.2 g/dL Low 13.0-17.0 [facility] Comment on above: Performed By: #### P T, PTT, AMYL, CMP, LIPA, PHOS ####[place] [address]#### TRANSF ####[place] [phone] Lymphocytes 1.82 10*3/uL Normal 1.00-4.00 [facility] Comment on above: Performed By: #### P T, PTT, AMYL, CMP, LIPA, PHOS ####[place] [address]#### TRANSF ####[place] [phone] Lymphocytes/100 leukocytes 32.4 % Normal [facility] Comment on above: Performed By: #### P T, PTT, AMYL, CMP, LIPA, PHOS ####[place] [address]#### TRANSF ####[place] [phone] MCH 25.5 pG Low 26.0-34.0 [facility] Comment on above: Performed By: #### P T, PTT, AMYL, CMP, LIPA, PHOS ####[place] [address]#### TRANSF ####[place] [phone] MCHC mass conc (RBC) 31.9 g/dL Normal 30.5-36.0 [facility] Comment on above: Performed By: #### P T, PTT, AMYL, CMP, LIPA, PHOS ####[place] [address]#### TRANSF ####[place] [phone] MCV 80.0 fL Normal 80.0-100.0 [facility] Comment on above: Performed By: #### P T, PTT, AMYL, CMP, LIPA, PHOS ####[place] [address]#### TRANSF ####[place] [phone] Monocytes/100 leukocytes 8.4 % Normal [facility] Comment on above: Performed By: #### P T, PTT, AMYL, CMP, LIPA, PHOS ####[place] [address]#### TRANSF ####[place] [phone] Neutrophils/100 WBC Auto (Bld) 54.9 % Normal [facility] Comment on above: Performed By: #### P T, PTT, AMYL, CMP, LIPA, PHOS ####[place] [address]#### TRANSF ####[place] [phone] Platelet mean volume (PMV) 9.3 fL Normal 9.0-12.7 [facility] Comment on above: Performed By: #### P T, PTT, AMYL, CMP, LIPA, PHOS ####[place] [address]#### TRANSF ####[place] [phone] Platelets 314 10*3/uL Normal 150-400 [facility] Comment on above: Performed By: #### P T, PTT, AMYL, CMP, LIPA, PHOS ####[place] [address]#### TRANSF ####[place] [phone] WBC (Leukocytes) 5.61 10*3/uL Normal 3.70-11.00 [facility] Comment on above: Performed By: #### P T, PTT, AMYL, CMP, LIPA, PHOS ####[facility] [place], [place] [phone]#### TRANSF ####[facility] [address] [place], [place] [phone] CONSULTon 10-05-2017 CONSULT HNO ID: [id number] thor: Damaris Rojasice: EndocrinologyAuthor Type: PhysicianType: ConsultsFiled: 10/05/2017 6:01 PMNote Text:ENDOCRINOLOGY INITIAL CONSULTPATIENT NAME: Rocio JacksonMRN: [id number] DATE: 10/05/2017SERVICE TIME: 5:01 PMREASON FOR CONSULT: DM Type 2REQUESTING PHYSICIAN:Michael Jolley [facility] CARE PHYSICIAN: Adriane Nichols, DOSubjectiveHISTORY [...] sees primary caredoctor for DM management in [facility]. He was on oral agentssaxagliptin [...] Date- ANGIOPLASTY HX 05/15/2011 2 stents [place]/p [place];[facility]- CHOLECYSTECTOMY 08/11/2017 [facility]- PICC LINE INSERT/CONSULT 08/16/2017No family history on [...] PRN Yrn Cedillo)Gonzalo 5 mg at 10/05/17 4393fwuntq-bqaqxnwf-fucpurb 2 capsule cap(s) (CREON 24) 2 capsule ORAL TID wMEALS Flynn (Res) MD Jane 2 capsule at 10/04/17 1740phenol 1 [place] (CHLORASEPTIC) [address] [employer] [place] MUCOUS MEMBRANE (TOPICAL MOUTH ANDTHROAT) q 2 H PRN Kolby (Res) Kevin 1 [employer] [place] at 10/02/17 76294.9% NaCl 2-10 mL 2-10 mL INTRAVENOUS q [...] lb 12.3 oz) SpO2 96% BMI 29.77 kg/k1Ryviisc: Fatigued appearing, alert, in no acute distress, [...] MDDATE: October 05, 2017TIME: 5:01 PM Normal [facility] Comp Metabolic Panelon 10-05 Alanine aminotransferase (ALT) 27 U/L Normal 5-50 [facility] Comment on above: Performed By: #### P T, PTT, AMYL, CMP, LIPA, PHOS ####[place] [phone]#### TRANSF ####[place] [phone] Albumin 3.3 g/dL Low 3.5-5.0 [facility] Comment on above: Result Comment: Revi ewed Performed By: #### P T, PTT, AMYL, CMP, LIPA, PHOS ####[place] [phone]#### TRANSF ####[phone] Alkaline phosphatase (ALP) 107 U/L Normal 40-150 [facility] Comment on above: Performed By: #### P T, PTT, AMYL, CMP, LIPA, PHOS ####[place] [address]#### TRANSF ####[place] [phone] Anion gap 12 mmol/L Normal 9-18 [facility] Comment on above: Performed By: #### P T, PTT, AMYL, CMP, LIPA, PHOS ####[place] [address]#### TRANSF ####[place] [phone] Aspartate aminotransferase (AST) 23 U/L Normal 7-40 [facility] Comment on above: Performed By: #### P T, PTT, AMYL, CMP, LIPA, PHOS ####[place] [address]#### TRANSF ####[place] [phone] Bilirubin (total) 0.2 mg/dL Normal 0.0-1.5 [facility] Comment on above: Performed By: #### P T, PTT, AMYL, CMP, LIPA, PHOS ####[place] [address]#### TRANSF ####[place] [phone] Calcium 8.9 mg/dL Normal 8.5-10.5 [facility] Comment on above: Performed By: #### P T, PTT, AMYL, CMP, LIPA, PHOS ####[place] [address]#### TRANSF ####[place] [phone] Chloride 103 mmol/L Normal 98-110 [facility] Comment on above: Performed By: #### P T, PTT, AMYL, CMP, LIPA, PHOS ####[place] [address]#### TRANSF ####[place] [phone] CO2 27 mmol/L Normal 23-32 [facility] Comment on above: Performed By: #### P T, PTT, AMYL, CMP, LIPA, PHOS ####[place] [address]#### TRANSF ####[place] [phone] Creatinine 0.56 mg/dL Low 0.70-1.40 [facility] Comment on above: Performed By: #### P T, PTT, AMYL, CMP, LIPA, PHOS ####[place] [address]#### TRANSF ####[place] [phone] eGFR (non-black) mL/min/{1.73_m2} Normal >60 [facility] Comment on above: Performed By: #### P T, PTT, AMYL, CMP, LIPA, PHOS ####[place] [address]#### TRANSF ####[place] [phone] Glucose mass conc 172 mg/dL High 65-100 [facility] Comment on above: Performed By: #### P T, PTT, AMYL, CMP, LIPA, PHOS ####[address]#### TRANSF ####[place] [phone] Potassium molar conc 4.6 mmol/L Normal 3.5-5.0 [facility] Comment on above: Performed By: #### P T, PTT, AMYL, CMP, LIPA, PHOS ####[place] [address]#### TRANSF ####[place] [phone] Protein 6.5 g/dL Normal 6.0-8.4 [facility] Comment on above: Performed By: #### P T, PTT, AMYL, CMP, LIPA, PHOS ####[place] [address]#### TRANSF ####[place] [phone] Sodium 142 mmol/L Normal 135-146 [facility] Comment on above: Performed By: #### P T, PTT, AMYL, CMP, LIPA, PHOS ####[place] [address]#### TRANSF ####[place] [phone] Urea nitrogen 14 mg/dL Normal 10-25 [facility] Comment on above: Performed By: #### P T, PTT, AMYL, CMP, LIPA, PHOS ####[place] [address]#### TRANSF ####[place] [phone] Magnesiumon 10-05-2017 Magnesium 2.1 mg/dL Normal 1.7-2.6 [facility] Comment on above: Performed By: #### P T, PTT, AMYL, CMP, LIPA, PHOS ####[place] [address]#### TRANSF ####[place] [phone] NURSING PROGon 10-05-2017 NURSING PROG HNO ID: [id number] thor: Saima Kramer (RnLyric Richardson, RNService: (none)Author Type: Registered NurseType: Nursing Progress NoteFiled: 10/05/2017 3:52 PMNote Text: Nursing Progress NotePatient Name: Rocio Boudreaux: [id number] Location: [place] [address]/KN-YD2H-62 ____Daily Note:Pt sitting on edge of bed [...] was completed by: Saima Richardson RN [facility] PROGRESSon 10-05-2017 PROGRESS HNO ID: [id number] thor: Michael Cedillo) AugustinService: General SurgeryAuthor Type: PhysicianType: Progress NotesFiled: 10/05/2017 6:45 PMNote Text:SURGICAL SERVICES PROGRESS NOTENAME: Rocio Boudreaux: [id number]: 10/05/2017Time: 7:15 JUDIE DATE: 09/30/20175 Days Post-OpProcedure(s) [...] 10/05/17 0659 10/05/17 0700 - 10/06/17 0659Shift 6423-6047 1884-6532 2564-8353 24 Hour Total 4777-6010 9799-02851930-2715 24 Hour TotalINTAKE PO 770 1749 398 4416 PO 600 773 7658 Tube Feed Intake (GI Feed/Drain 09/30/17 Small Bore Feeding Right Naris10 Fr) 240 050 612 6817 Irrigants 5 115 180 300 Irrigant/Flush Amount In (Drain/Tube 08/27/17 Admission to HospitalRight Upper Quadrant Abdomen Drain #3) 5 5 10 Irrigant/Flush Amount In (GI Feed/Drain 09/30/17 Small Bore FeedingRight Naris 10 Fr) 110 180 290 Shift Total 775 1285 718 2778OUTPUT Urine 329 182 8545 3075 Void (ml) 525 1850 2375 Tube [...] x 1 x 5 x Shift Total 950 432 3594 3425Weight (kg) 88.8 88.8 88.8 88.8 88.8 88.8 88.8 88.8DIAGNOSTIC STUDIES:CBC:Hemoglobin (g/dL)Date Value10/05/2017 10.2 Hematocrit (%)Date Value10/05/2017 32.0 WBC (k/uL)Date Value10/05/2017 5.61 Platelet Count (k/uL)Date Value10/05/2017 314 CMP:BMP:Glucose 172 10/05/2017BUN 14 10/05/2017Creatinine 0.56 10/05/2017Sodium 142 10/05/2017Potassium 4.6 10/05/2017Chloride 103 10/05/2017CO2 27 10/05/2017Protein, Total 6.5 10/05/2017Albumin 3.3 10/05/2017Calcium 8.9 10/05/2017Alkaline Phosphatase 107 10/05/2017Bilirubin, Total 0.2 10/05/2017AST 23 10/05/2017ALT 27 10/05/2017MATI MejiaGY II general surgeryPager [phone] - 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Pager [phone] - PersonalSTAFF NOTEI have independently seen and examined the patient today. I haveindependently reviewed all the imaging and the labs. I agree with keycomponents of the resident's note above. Care plan and decision making hasbeen discussed.Doing well, continued DGETolerating tube feedsClearsToms MD Froilan, MPH, FACSGeneral/Trauma/HPB SurgeryPager: [phone] Cell: [id number] 2017 Normal [facility] Phosphoruson 10-05-2017 Phosphate 3.6 mg/dL Normal 2.5-4.5 [facility] Comment on above: Performed By: #### P T, PTT, AMYL, CMP, LIPA, PHOS ####[place] [address]#### TRANSF ####[phone] CBC and Differentialon 10-04 Abs Baso <0.03 Normal <0.11 [facility] Comment on above: Performed By: #### P T, PTT, AMYL, CMP, LIPA, PHOS ####[place] [address]#### TRANSF ####[phone] Abs [place] 0.32 k/uL Normal <0.87 [facility] Comment on above: Performed By: #### P T, PTT, AMYL, CMP, LIPA, PHOS ####[place] [address]#### TRANSF ####[place] [phone] Abs Neut 2.35 k/uL Normal 1.45-7.50 [facility] Comment on above: Performed By: #### P T, PTT, AMYL, CMP, LIPA, PHOS ####[place] [address]#### TRANSF ####[place] [phone] Basophils/100 WBC Auto (Bld) 0.2 % Normal [facility] Comment on above: Performed By: #### P T, PTT, AMYL, CMP, LIPA, PHOS ####[place] [address]#### TRANSF ####[phone] DTYPE Auto Diff Normal [facility] Comment on above: Performed By: #### P T, PTT, AMYL, CMP, LIPA, PHOS ####[place] [address]#### TRANSF ####[place] [phone] Eosinophils 0.25 10*3/uL Normal <0.46 [facility] Comment on above: Performed By: #### P T, PTT, AMYL, CMP, LIPA, PHOS ####[place] [address]#### TRANSF ####[place] [phone] Eosinophils/100 leukocytes 6.0 % Normal [facility] Comment on above: Performed By: #### P T, PTT, AMYL, CMP, LIPA, PHOS ####[place] [address]#### TRANSF ####[place] [address] Erythrocyte distribution width Auto Ratio (RBC) 16.3 % High 11.5-15.0 [facility] Comment on above: Performed By: #### P T, PTT, AMYL, CMP, LIPA, PHOS ####[place] [address]#### TRANSF ####[place] [phone] Erythrocytes (RBC) 3.42 10*6/uL Low 4.20-6.00 [facility] Comment on above: Performed By: #### P T, PTT, AMYL, CMP, LIPA, PHOS ####[place] [address]#### TRANSF ####[place] [phone] Hematocrit (HCT) 27.0 % Low 39.0-51.0 [facility] Comment on above: Performed By: #### P T, PTT, AMYL, CMP, LIPA, PHOS ####[place] [address]#### TRANSF ####[phone] Hemoglobin mass conc (Bld) 8.7 g/dL Low 13.0-17.0 [facility] Comment on above: Performed By: #### P T, PTT, AMYL, CMP, LIPA, PHOS ####[place] [address]#### TRANSF ####[place] [phone] Lymphocytes 1.27 10*3/uL Normal 1.00-4.00 [facility] Comment on above: Performed By: #### P T, PTT, AMYL, CMP, LIPA, PHOS ####[place] [address]#### TRANSF ####[place] [phone] Lymphocytes/100 leukocytes 30.2 % Normal [facility] Comment on above: Performed By: #### P T, PTT, AMYL, CMP, LIPA, PHOS ####[place] [address]#### TRANSF ####[place] [phone] MCH 25.4 pG Low 26.0-34.0 [facility] Comment on above: Performed By: #### P T, PTT, AMYL, CMP, LIPA, PHOS ####[place] [address]#### TRANSF ####[place] [id number] MCHC mass conc (RBC) 32.2 g/dL Normal 30.5-36.0 [facility] Comment on above: Performed By: #### P T, PTT, AMYL, CMP, LIPA, PHOS ####[place] [id number]#### TRANSF ####[place] [address] [address] [place] [phone] MCV 78.9 fL Low 80.0-100.0 [facility] Comment on above: Performed By: #### P T, PTT, AMYL, CMP, LIPA, PHOS ####[place] [address]#### TRANSF ####[address] [place] [phone] Monocytes/100 leukocytes 7.6 % Normal [facility] Comment on above: Performed By: #### P T, PTT, AMYL, CMP, LIPA, PHOS ####[place] [address]#### TRANSF ####[address] AvJason [place] [phone] Neutrophils/100 WBC Auto (Bld) 56.0 % Normal [facility] Comment on above: Performed By: #### P T, PTT, AMYL, CMP, LIPA, PHOS ####[place] [address]#### TRANSF ####[place] [phone] Platelet mean volume (PMV) 9.2 fL Normal 9.0-12.7 [facility] Comment on above: Performed By: #### P T, PTT, AMYL, CMP, LIPA, PHOS ####[place] [address]#### TRANSF ####[address]CBritt[address] Ville [phone] Platelets 246 10*3/uL Normal 150-400 [facility] Comment on above: Performed By: #### P T, PTT, AMYL, CMP, LIPA, PHOS ####[facility] [place], [place] [phone]#### TRANSF ####[place] [address] [place], [place] [phone] WBC (Leukocytes) 4.20 10*3/uL Normal 3.70-11.00 [facility] Comment on above: Performed By: #### P T, PTT, AMYL, CMP, LIPA, PHOS ####[facility] [place], [place] [phone]#### TRANSF ####[place] [address] [place], [place] [phone] CONSULT PROGon 10-04-2017 CONSULT PROG HNO ID: [id number] thor: Brock Felder) Najma: Pain ManagementAuthor Type: Physician AssistantType: Consult Progress NoteFiled: 10/04/2017 8:53 AMNote Text:PERIPHERAL NERVE CATHETER PROGRESS NOTEPATIENT NAME: Rocio JacksonMRN: [id number] DATE: 10/04/2017SERVICE TIME: 8:36 AMPRIMARY SERVICE:?General Surgery??ASSESSMENT [...] placed: Day of surgery??MEDICATIONS:??Epidu ral Medications and PRODUCE BUYER SettingsBupivacaine 0.1% + Dilaudid??Basal rate: 4?mL/hr.Patient Demand Bolus: 3?mL.Lockout interval: 4?minutesCurrent hospital medications:oxyCODONE IR 5 mg tab(s) (ROXICODONE) 5 mg ORAL q 4 H PVGthxvdq-nxravusb-vjzlyci 2 capsule cap(s) (CREON 24) 2 capsule ORAL TID wMEALSacetaminophen 650 mg tab(s) (TYLENOL) 650 mg ORAL q 6 Hdocusate sodium 100 mg cap(s) (COLACE) 100 mg ORAL BIDatorvastatin 40 mg tab(s) (LIPITOR) 40 mg ORAL/FEEDING TUBE AT BEDTIMEphenol 1 [place] (CHLORASEPTIC) 1 [place] MUCOUS MEMBRANE (TOPICAL MOUTH ANDTHROAT) q 2 [...] mg ORAL q 8 HHYDROmorphone 0.5 mg/mL PRODUCE BUYER CLINICIAN DOSE 0.2 mg 0.2 mg INTRAVENOUS [...] 2017 : 8:36 AM PAGER/CONTACT #: MILTON [phone] Normal [facility] Comp Metabolic Panelon 10-04 Alanine aminotransferase (ALT) 23 U/L Normal 5-50 [facility] Comment on above: Performed By: #### P T, PTT, AMYL, CMP, LIPA, PHOS ####[place] [address]#### TRANSF ####[place] [address] Albumin 2.3 g/dL Low 3.5-5.0 [facility] Comment on above: Performed By: #### P T, PTT, AMYL, CMP, LIPA, PHOS ####[place] [address]#### TRANSF ####[place] [address] Alkaline phosphatase (ALP) 83 U/L Normal 40-150 [facility] Comment on above: Performed By: #### P T, PTT, AMYL, CMP, LIPA, PHOS ####[place] [address]#### TRANSF ####[place] [phone] Anion gap 11 mmol/L Normal 9-18 [facility] Comment on above: Performed By: #### P T, PTT, AMYL, CMP, LIPA, PHOS ####[place] [address]#### TRANSF ####[place] [address] Aspartate aminotransferase (AST) 19 U/L Normal 7-40 [facility] Comment on above: Performed By: #### P T, PTT, AMYL, CMP, LIPA, PHOS ####[place] [address]#### TRANSF ####[place] [phone] Bilirubin (total) 0.2 mg/dL Normal 0.0-1.5 [facility] Comment on above: Performed By: #### P T, PTT, AMYL, CMP, LIPA, PHOS ####[place] [address]#### TRANSF ####[place] [phone] Calcium 8.1 mg/dL Low 8.5-10.5 [facility] Comment on above: Performed By: #### P T, PTT, AMYL, CMP, LIPA, PHOS ####[place] [address]#### TRANSF ####[place] [address] Chloride 103 mmol/L Normal 98-110 [facility] Comment on above: Performed By: #### P T, PTT, AMYL, CMP, LIPA, PHOS ####[place] [address]#### TRANSF ####[place] [phone] CO2 25 mmol/L Normal 23-32 [facility] Comment on above: Performed By: #### P T, PTT, AMYL, CMP, LIPA, PHOS ####[place] [phone]#### TRANSF ####[place] [phone] Creatinine 0.54 mg/dL Low 0.70-1.40 [facility] Comment on above: Performed By: #### P T, PTT, AMYL, CMP, LIPA, PHOS ####[place] [phone]#### TRANSF ####[place] [phone] eGFR (non-black) mL/min/{1.73_m2} Normal >60 [facility] Comment on above: Performed By: #### P T, PTT, AMYL, CMP, LIPA, PHOS ####[place] [address]#### TRANSF ####[place] [phone] Glucose mass conc 146 mg/dL High 65-100 [facility] Comment on above: Performed By: #### P T, PTT, AMYL, CMP, LIPA, PHOS ####[address]#### TRANSF ####[place] [phone] Potassium molar conc 4.0 mmol/L Normal 3.5-5.0 [facility] Comment on above: Performed By: #### P T, PTT, AMYL, CMP, LIPA, PHOS ####[address]#### TRANSF ####[place] [phone] Protein 5.6 g/dL Low 6.0-8.4 [facility] Comment on above: Performed By: #### P T, PTT, AMYL, CMP, LIPA, PHOS ####[place] [address]#### TRANSF ####[place] [phone] Sodium 139 mmol/L Normal 135-146 [facility] Comment on above: Performed By: #### P T, PTT, AMYL, CMP, LIPA, PHOS ####[place] [address]#### TRANSF ####[place] [phone] Urea nitrogen 16 mg/dL Normal 10-25 [facility] Comment on above: Performed By: #### P T, PTT, AMYL, CMP, LIPA, PHOS ####[place] [address]#### TRANSF ####[place] [address] Magnesiumon 10-04-2017 Magnesium 1.8 mg/dL Normal 1.7-2.6 [facility] Comment on above: Performed By: #### P T, PTT, AMYL, CMP, LIPA, PHOS ####[place] [address]#### TRANSF ####[address] NURSING PROGon 10-04-2017 NURSING PROG HNO ID: [id number] thor: Srinivasan (Rn) Bonnie, RNService: (none)Author Type: Registered NurseType: Nursing Progress NoteFiled: 10/05/2017 5:27 AMNote Text: Nursing Progress NotePatient Name: Rocio HayesMarisa: [id number] Location: [place] [address]/[id number]-[id number] ____Daily Note:2049: Pt had one 50cc emesis. Medicated with Dqxnpy6754: Pt reassessed. States nausea has subsided. Will continue to monitor.0455: Pt had 300cc green emesis episode. Medicated with zofran. Text pagesent to SROC to make aware.0525: SROC returned called. day team will be rounding soon. Willcontinue to monitor.This note was completed by: Srinivasan Nicole RN [facility] PROGRESSon 10-04-2017 PROGRESS HNO ID: [id number] thor: Mela Carroll: General SurgeryAuthor Type: PhysicianType: [...] lb 12.3 oz) SpO2 94% BMI 29.77 kg/l2HDEETNG: no acute distressABDOMEN: soft, nontender, mildly distended. [...] (ROXICODONE) 5 mg ORAL q 4 H BGWeudzyd-bnxjnvfb-qrgjgen 2 capsule cap(s) (CREON 24) 2 capsule ORAL TID wMEALSacetaminophen 650 mg tab(s) (TYLENOL) 650 mg ORAL q 6 Hdocusate sodium 100 mg cap(s) (COLACE) 100 mg ORAL BIDatorvastatin 40 mg tab(s) (LIPITOR) 40 mg ORAL/FEEDING TUBE AT BEDTIMEphenol 1 [place] (CHLORASEPTIC) 1 [place] MUCOUS MEMBRANE (TOPICAL MOUTH ANDTHROAT) q 2 [...] after epidural removalMuriel Perez 2017 1:07 PM [facility] Phosphoruson 10-04-2017 Phosphate 3.5 mg/dL Normal 2.5-4.5 [facility] Comment on above: Performed By: #### P T, PTT, AMYL, CMP, LIPA, PHOS ####[facility] [place], [place] [phone]#### TRANSF ####[facility], [place] [phone] Amylaseon 10-03-2017 Amylase 44 U/L Normal 0-137 [facility] Comment on above: Performed By: #### P T, PTT, AMYL, CMP, LIPA, PHOS ####[facility] [place] [phone]#### TRANSF ####[place] [address] [place], [place] [phone] Amylase,Body Fluidon 018 Amylase 118 U/L Critically abnormal See Comment [facility] Comment on above: Result Comment: (NOT [...] CLSI document C49-A. SAIMA Contreras: Clinical LaboratoryStandards [place]; 2007.3. Kya EDUARDO, Angelia SANCHEZ, Nimo DJ. Use of cyst fluid CEA,CA19-9, and amylase for evaluation of pancreatic lesions. ClinicalBiochemistry. 2009;42:5617-0554.This test was developed and its performance characteristicsdetermined by [facility]'s [facility] and[facility] Medicine [place] ([facility]).It has not been cleared or approved by the FDA. [facility] is regulatedunder [place] as qualified to perform high-complexity testing.This test is used for clinical purposes. It should not be regarded asinvestigational or for research. Performed By: #### P T, PTT, AMYL, CMP, LIPA, PHOS ####[place] [address]#### TRANSF ####[place] [phone] Fluid Type Chandana Howard Drain Normal [facility] Comment on above: Result Comment: LEFT Performed By: #### P T, PTT, AMYL, CMP, LIPA, PHOS ####[place] [address]#### TRANSF ####[place] [phone] Amylase 53 U/L Critically abnormal See Comment [facility] Comment on above: Result Comment: (NOT [...] ApprovedGuideline. CLSI document C49-A. SAIMA Contreras: Clinical LaboratoryStandchinle comprehensive health care facility [place]; 2006.3. Kya CL, Angelia SANCHEZ, Nimo DJ. Use of cyst fluid CEA,CA19-9, and amylase for evaluation of pancreatic lesions. ClinicalBiochemistry. 2009;42:0970-2489.This test was developed and its performance characteristicsdetermined by [facility]'s [facility] Pathology andSt. Elizabeth Hospitalt[facility] Medicine [place] ([facility]).It has not been cleared or approved by the FDA. [facility] is regulatedunder [facility] as qualified to perform high-complexity testing.This test is used for clinical purposes. It should not be regarded asinvestigational or for research. Performed By: #### P T, PTT, AMYL, CMP, LIPA, PHOS ####[place] [address]#### TRANSF ####[place] [phone] Fluid Type Chandana Howard Drain Normal [facility] Comment on above: Result Comment: RIGH T Performed By: #### P T, PTT, AMYL, CMP, LIPA, PHOS ####[place] [address]#### TRANSF ####[place] [phone] CBC and Differentialon 10-03 Abs Baso <0.03 Normal <0.11 [facility] Comment on above: Performed By: #### P T, PTT, AMYL, CMP, LIPA, PHOS ####[place] [address]#### TRANSF ####[place] [address] [address]CArthur [place] [phone] Abs [place] 0.54 k/uL Normal <0.87 [facility] Comment on above: Performed By: #### P T, PTT, AMYL, CMP, LIPA, PHOS ####[place] [address]#### TRANSF ####[place] [address] [address] [place] [phone] Abs Neut 3.56 k/uL Normal 1.45-7.50 [facility] Comment on above: Performed By: #### P T, PTT, AMYL, CMP, LIPA, PHOS ####[place] [address]#### TRANSF ####[place] [address] Basophils/100 WBC Auto (Bld) 0.2 % Normal [facility] Comment on above: Performed By: #### P T, PTT, AMYL, CMP, LIPA, PHOS ####[place] [address]#### TRANSF ####[place] [address] DTYPE Auto Diff Normal [facility] Comment on above: Performed By: #### P T, PTT, AMYL, CMP, LIPA, PHOS ####[place] [address]#### TRANSF ####[place] [address] Eosinophils 0.29 10*3/uL Normal <0.46 [facility] Comment on above: Performed By: #### P T, PTT, AMYL, CMP, LIPA, PHOS ####[place] [address]#### TRANSF ####[address] [place] [phone] Eosinophils/100 leukocytes 4.9 % Normal [facility] Comment on above: Performed By: #### P T, PTT, AMYL, CMP, LIPA, PHOS ####[place] [address]#### TRANSF ####[place] [phone] Erythrocyte distribution width Auto Ratio (RBC) 16.1 % High 11.5-15.0 [facility] Comment on above: Performed By: #### P T, PTT, AMYL, CMP, LIPA, PHOS ####[place] [address]#### TRANSF ####[place] [phone] Erythrocytes (RBC) 3.72 10*6/uL Low 4.20-6.00 [facility] Comment on above: Performed By: #### P T, PTT, AMYL, CMP, LIPA, PHOS ####[place] [address]#### TRANSF ####[place] [phone] Hematocrit (HCT) 29.4 % Low 39.0-51.0 [facility] Comment on above: Performed By: #### P T, PTT, AMYL, CMP, LIPA, PHOS ####[place] [address]#### TRANSF ####[place] [phone] Hemoglobin mass conc (Bld) 9.5 g/dL Low 13.0-17.0 [facility] Comment on above: Performed By: #### P T, PTT, AMYL, CMP, LIPA, PHOS ####[place] [phone]#### TRANSF ####[place] [phone] Lymphocytes 1.52 10*3/uL Normal 1.00-4.00 [facility] Comment on above: Performed By: #### P T, PTT, AMYL, CMP, LIPA, PHOS ####[place] [address]#### TRANSF ####[place] [phone] Lymphocytes/100 leukocytes 25.7 % Normal [facility] Comment on above: Performed By: #### P T, PTT, AMYL, CMP, LIPA, PHOS ####[place] [address]#### TRANSF ####[place] [phone] MCH 25.5 pG Low 26.0-34.0 [facility] Comment on above: Performed By: #### P T, PTT, AMYL, CMP, LIPA, PHOS ####[place] [address]#### TRANSF ####[place] [phone] MCHC mass conc (RBC) 32.3 g/dL Normal 30.5-36.0 [facility] Comment on above: Performed By: #### P T, PTT, AMYL, CMP, LIPA, PHOS ####[place] [address]#### TRANSF ####[place] [phone] MCV 79.0 fL Low 80.0-100.0 [facility] Comment on above: Performed By: #### P T, PTT, AMYL, CMP, LIPA, PHOS ####[place] [address]#### TRANSF ####[place] [phone] Monocytes/100 leukocytes 9.1 % Normal [facility] Comment on above: Performed By: #### P T, PTT, AMYL, CMP, LIPA, PHOS ####[place] [address]#### TRANSF ####[place] [phone] Neutrophils/100 WBC Auto (Bld) 60.1 % Normal [facility] Comment on above: Performed By: #### P T, PTT, AMYL, CMP, LIPA, PHOS ####[place] [address]#### TRANSF ####[place] [phone] Platelet mean volume (PMV) 10.0 fL Normal 9.0-12.7 [facility] Comment on above: Performed By: #### P T, PTT, AMYL, CMP, LIPA, PHOS ####[address]#### TRANSF ####[place] [phone] Platelets 225 10*3/uL Normal 150-400 [facility] Comment on above: Performed By: #### P T, PTT, AMYL, CMP, LIPA, PHOS ####[place] [address]#### TRANSF ####[place] [phone] WBC (Leukocytes) 5.92 10*3/uL Normal 3.70-11.00 [facility] Comment on above: Performed By: #### P T, PTT, AMYL, CMP, LIPA, PHOS ####[facility] [place], [place] [phone]#### TRANSF ####[facility] [place], [place] [phone] CONSULT PROGon 10-03-2017 CONSULT PROG HNO ID: [id number] thor: Brock DixonService: Pain ManagementAuthor Type: Physician AssistantType: Consult Progress NoteFiled: 10/03/2017 9:15 AMNote Text:PERIPHERAL NERVE CATHETER PROGRESS NOTEPATIENT NAME: Rocio JacksonMRN: [id number] DATE: 10/03/2017SERVICE TIME: 8:59 AMPRIMARY SERVICE: General [...] catheter placed: Day of surgery?MEDICATIONS:Epidural Medications and PRODUCE BUYER SettingsBupivacaine 0.1% + Dilaudid?Basal rate: 4 mL/hr.Patient Demand Bolus: 3 mL.Lockout interval: 4 minutes.??Current hospital medications:oxyCODONE IR 5 mg tab(s) (ROXICODONE) 5 mg ORAL q 4 H PRNdocusate sodium 100 mg cap(s) (COLACE) 100 mg ORAL BIDacetaminophen 650 mg CUP (TYLENOL) 650 mg ORAL/FEEDING TUBE q 6 Hatorvastatin 40 mg tab(s) (LIPITOR) 40 mg ORAL/FEEDING TUBE AT BEDTIMEphenol [address] [place] (CHLORASEPTIC) [address] [place] MUCOUS MEMBRANE (TOPICAL MOUTH ANDTHROAT) q 2 [...] mg ORAL q 8 HHYDROmorphone 0.5 mg/mL PRODUCE BUYER CLINICIAN DOSE 0.2 mg 0.2 mg INTRAVENOUS q 6 HPRNinsulin lispro injection (rapid acting) (HumaLOG) SUBCUTANEOUS q 6 Hheparin 5,000 Units injection 5,000 Units SUBCUTANEOUS q 12 Hmetoclopramide HCl 10 mg injection (REGLAN) 10 mg INTRAVENOUS q 6 H PRNOBJECTIVE:PHYSICAL EXAM:Patient Vitals for the past 3 hrs: BP Temp Temp src Pulse Resp AcJ378/01/13 0736 134/78 37.3 ?C (99.2 ?F) Oral [...] 03, 2017 : 8:59 AM PAGER/CONTACT #: [phone] Normal [facility] Comp Metabolic Panelon 10-03 Alanine aminotransferase (ALT) 25 U/L Normal 5-50 [facility] Comment on above: Performed By: #### P T, PTT, AMYL, CMP, LIPA, PHOS ####[facility] [place], [place] [phone]#### TRANSF ####[facility] [place], [place] [phone] Albumin 2.5 g/dL Low 3.5-5.0 [facility] Comment on above: Performed By: #### P T, PTT, AMYL, CMP, LIPA, PHOS ####[place] [address]#### TRANSF ####[place] [phone] Alkaline phosphatase (ALP) 72 U/L Normal 40-150 [facility] Comment on above: Performed By: #### P T, PTT, AMYL, CMP, LIPA, PHOS ####[place] [address]#### TRANSF ####[place] [phone] Anion gap 11 mmol/L Normal 9-18 [facility] Comment on above: Performed By: #### P T, PTT, AMYL, CMP, LIPA, PHOS ####[place] [address]#### TRANSF ####[place] [address] Aspartate aminotransferase (AST) 20 U/L Normal 7-40 [facility] Comment on above: Performed By: #### P T, PTT, AMYL, CMP, LIPA, PHOS ####[place] [address]#### TRANSF ####[place] [phone] Bilirubin (total) 0.2 mg/dL Normal 0.0-1.5 [facility] Comment on above: Performed By: #### P T, PTT, AMYL, CMP, LIPA, PHOS ####[place] [address]#### TRANSF ####[place] [phone] Calcium 8.3 mg/dL Low 8.5-10.5 [facility] Comment on above: Performed By: #### P T, PTT, AMYL, CMP, LIPA, PHOS ####[place] [address]#### TRANSF ####[place] [phone] Chloride 105 mmol/L Normal 98-110 [facility] Comment on above: Performed By: #### P T, PTT, AMYL, CMP, LIPA, PHOS ####[place] [address]#### TRANSF ####[place] [phone] CO2 24 mmol/L Normal 23-32 [facility] Comment on above: Performed By: #### P T, PTT, AMYL, CMP, LIPA, PHOS ####[place] [address]#### TRANSF ####[place] [phone] Creatinine 0.55 mg/dL Low 0.70-1.40 [facility] Comment on above: Performed By: #### P T, PTT, AMYL, CMP, LIPA, PHOS ####[place] [address]#### TRANSF ####[place] [phone] eGFR (non-black) mL/min/{1.73_m2} Normal >60 [facility] Comment on above: Performed By: #### P T, PTT, AMYL, CMP, LIPA, PHOS ####[place] [address]#### TRANSF ####[place] [phone] Glucose mass conc 138 mg/dL High 65-100 [facility] Comment on above: Performed By: #### P T, PTT, AMYL, CMP, LIPA, PHOS ####[place] [address]#### TRANSF ####[place] [phone] Potassium molar conc 4.1 mmol/L Normal 3.5-5.0 [facility] Comment on above: Performed By: #### P T, PTT, AMYL, CMP, LIPA, PHOS ####[place] [address]#### TRANSF ####[place] [phone] Protein 5.7 g/dL Low 6.0-8.4 [facility] Comment on above: Performed By: #### P T, PTT, AMYL, CMP, LIPA, PHOS ####[place] [address]#### TRANSF ####[place] [phone] Sodium 140 mmol/L Normal 135-146 [facility] Comment on above: Performed By: #### P T, PTT, AMYL, CMP, LIPA, PHOS ####[place] [address]#### TRANSF ####[place] [phone] Urea nitrogen 18 mg/dL Normal 10-25 [facility] Comment on above: Performed By: #### P T, PTT, AMYL, CMP, LIPA, PHOS ####[place] [address]#### TRANSF ####[place] [phone] Magnesiumon 04-07-2018 Magnesium 1.8 mg/dL Normal 1.7-2.6 [facility] Comment on above: Performed By: #### P T, PTT, AMYL, CMP, LIPA, PHOS ####[facility] [place], [place] [phone]#### TRANSF ####[facility] [place], [place] [phone] NURSING PROGon 10-03-2017 NURSING PROG HNO ID: [id number] thor: Srinivasan (Rn) Bonnie, MOUSTAPHAervice: (none)Author Type: Registered NurseType: Nursing Progress NoteFiled: 10/04/2017 1:34 AMNote Text: Nursing Progress NotePatient Name: Rocio TorresDary: [id number] Location: [address]/WR-VX2B-40 ____Daily Note: Pt AANDOx3. Adequate saturation on RA. ABD distended, tender totouch. Midline ADELA. Pt states he has passed a little gas. [place] drainingclear, yellow. Epidural infusing per order. Tube feed at 50cc/hr.Ambulated pod with x1 assist and walker. No needs voiced. Call lightwithin reach, will continue to monitor.This note was completed by: Srinivasan Nicole RN Normal [facility] NURSING PROG HNO ID: [id number] thor: Serena KenRn) MOUSTAPHA Stewartervice: NursingAuthor Type: Registered NurseType: Nursing Progress NoteFiled: 10/03/2017 6:32 PMNote Text: Nursing Progress NotePatient Name: Rocio BrianDary: [id number] Location: [place] [address]/UD-[id number]-44 ____Daily Note: Late entry for 1100: Pt [...] alf around POD for 2nd time this rxdsr8908: Resident into remove pt's ROMINA drains. PtThis note was completed by: Serena Stewart RN [facility] NURSING PROG HNO ID: [id number] thor: Jennifer Humphries (Rn) Eleanor, RNService: (none)Author Type: Registered NurseType: Nursing Progress NoteFiled: 10/02/2017 11:39 PMNote Text: Nursing Progress NotePatient Name: Rocio JacksonMRN: [id number] Location: [place] [address]/YF-[id number] ____ Pt up in chair at start of shift. Pts and sister staying in room wpt. Rates pain 1 , states epidural adequate for pain control. Bili drainflushed earlier per orders, flushes well. Pt denies nausea with clears.BS hypo. Denies passing flatus.This note was completed by: Jennifer Webster RN [facility] PROGRESSon 10-03-2017 PROGRESS HNO ID: [id number] thor: Mela Carroll: General SurgeryAuthor Type: PhysicianType: Progress NotesFiled: 10/03/2017 1:26 PMNote Text:Covering MDNo new c/oPain well controlledCont epidural for nowWill remove drains if no evid for leakPt appreciative of Molly Verdin MD [facility] PROGRESS HNO ID: [id number] thor: Flynn (Res) ASHLEY Laraervice: General SurgeryAuthor Type: ResidentType: Progress NotesFiled: 10/03/2017 3:16 PMNote Text:General Surgery Progress NoteService Date: October 03, 2017Assessment and Plan: oRcio Jackson is a 62 year old male [...] lb 12.3 oz) SpO2 97% BMI 29.77 kg/z1RUVZYED: no acute distressABDOMEN: soft, diffusely tender, nondistended. [...] 0.3 0.5LACT -- -- -- 2.3*CoagsRecent Labs 09/24/1808943073NKZS 25.9 24.9 -- -- 39.8* 31.6INR 1.2 1.1 1.0 2.0* 2.0* 1.5*Intake and Output:Date 10/01/17699 - 10/02/17 0659 10/02/17699 - 10/03/17 0659Shift 1246-5306 2523-7563 1038-7655 24 Hour Total 7525-3383 5470-37510370-0222 24 Hour TotalINTAKE PO 0 97 482 [...] 2886 601.6 3637.6 60 60OUTPUT Urine 310 092 731 0997 75 75 Tube Output ( Indwelling Urinary Catheter 09/30/17 0909 [place] 16Fr) 310 636 719 5580 75 75 Tubes 70 135 35 240 [...] BM (mL) 0 0 Shift Total 380 312 142 0136 75 75Weight (kg) 81.1 81.1 88.8 88.8 88.8 88.8 88.8 88.8Current Medications:Current hospital medications:oxyCODONE IR 5 mg tab(s) (ROXICODONE) 5 mg ORAL q 4 H IQIfvaspi-nmsgwywj-kxqitkg 2 capsule cap(s) (CREON 24) 2 capsule ORAL TID wMEALSacetaminophen 650 mg tab(s) (TYLENOL) 650 mg ORAL q 6 Hdocusate sodium 100 mg cap(s) (COLACE) 100 mg ORAL BIDatorvastatin 40 mg tab(s) (LIPITOR) 40 mg ORAL/FEEDING TUBE AT BEDTIMEphenol 1 [place] (CHLORASEPTIC) [address] [place] MUCOUS MEMBRANE (TOPICAL MOUTH ANDTHROAT) q 2 [...] mg ORAL q 8 HHYDROmorphone 0.5 mg/mL PRODUCE BUYER CLINICIAN DOSE 0.2 mg 0.2 mg INTRAVENOUS q 6 HPRNinsulin lispro injection (rapid acting) (HumaLOG) SUBCUTANEOUS q 6 Hheparin 5,000 Units injection 5,000 Units SUBCUTANEOUS q 12 Hmetoclopramide HCl 10 mg injection (REGLAN) 10 mg INTRAVENOUS q 6 H PRN Normal [facility] Phosphoruson 10-03-2017 Phosphate 3.1 mg/dL Normal 2.5-4.5 [facility] Comment on above: Performed By: #### P T, PTT, AMYL, CMP, LIPA, PHOS ####[address] [phone]#### TRANSF ####[place] [address] [place], [place] [phone] Amylaseon 10-02-2017 Amylase 45 U/L Normal 0-137 [facility] Comment on above: Performed By: #### P T, PTT, AMYL, CMP, LIPA, PHOS ####[address] [phone]#### TRANSF ####[place] [phone] CASE MANAGEMon 10-02-2017 CASE MANAGEM HNO ID: [id number] thor: Lee Ann (Rn) Sveta RNService: Care ManagementAuthor Type: Registered NurseType: Care Mgt Progress NoteFiled: 10/02/2017 11:48 AMNote Text:CARE MANAGEMENT PROGRESS NOTESERVICE DATE: 10/02/2017SERVICE TIME: 11:44 AM LOS: 2 daysFREEDOM OF CHOICE GIVEN:Yes patientProvider List: Chcf FacilityNeeds Prior to Discharge: Accepting FacilityTCC met with patient and sister Briana at bedside. Discussed PTrecommendations for acute rehab--[facility] closest acute rehab that acceptis insurance, patient states wants to be [facility] to [facility] and states would prefer a SNF closer to home. Givenprovider list, patient and sister want to look over the list beforedeciding. CM will continue to assist with transition of care needs.SIGNATURE: Lee Ann Bangura RN PATIENT NAME: Rocio VizcarraTE: October 02, 2017 : 11:44 AM PAGER/CONTACT #: [phone] Normal [facility] CBCon 10-02-2017 Erythrocyte distribution width Auto Ratio (RBC) 16.2 % High 11.5-15.0 [facility] Comment on above: Performed By: #### P T, PTT, AMYL, CMP, LIPA, PHOS ####[place] [phone]#### TRANSF ####[place] [address] [place], [place] [phone] Erythrocytes (RBC) 3.38 10*6/uL Low 4.20-6.00 [facility] Comment on above: Performed By: #### P T, PTT, AMYL, CMP, LIPA, PHOS ####[address] [phone]#### TRANSF ####[address] [phone] Hematocrit (HCT) 26.4 % Low 39.0-51.0 [facility] Comment on above: Performed By: #### P T, PTT, AMYL, CMP, LIPA, PHOS ####[place] [address]#### TRANSF ####[address] [place] [place] [phone] Hemoglobin mass conc (Bld) 8.6 g/dL Low 13.0-17.0 [facility] Comment on above: Performed By: #### P T, PTT, AMYL, CMP, LIPA, PHOS ####[place] [address]#### TRANSF ####[place] [phone] MCH 25.4 pG Low 26.0-34.0 [facility] Comment on above: Performed By: #### P T, PTT, AMYL, CMP, LIPA, PHOS ####[place] [address]#### TRANSF ####[place] [address] MCHC mass conc (RBC) 32.6 g/dL Normal 30.5-36.0 [facility] Comment on above: Performed By: #### P T, PTT, AMYL, CMP, LIPA, PHOS ####[place] [address]#### TRANSF ####[place] [phone] MCV 78.1 fL Low 80.0-100.0 [facility] Comment on above: Performed By: #### P T, PTT, AMYL, CMP, LIPA, PHOS ####[place] [address]#### TRANSF ####[place] [phone] Platelet mean volume (PMV) 9.4 fL Normal 9.0-12.7 [facility] Comment on above: Performed By: #### P T, PTT, AMYL, CMP, LIPA, PHOS ####[place] [address]#### TRANSF ####[place] [phone] Platelets 210 10*3/uL Normal 150-400 [facility] Comment on above: Performed By: #### P T, PTT, AMYL, CMP, LIPA, PHOS ####[place] [address]#### TRANSF ####[place] [phone] WBC (Leukocytes) 6.15 10*3/uL Normal 3.70-11.00 [facility] Comment on above: Performed By: #### P T, PTT, AMYL, CMP, LIPA, PHOS ####[place] [address]#### TRANSF ####[place] [phone] CBC and Differentialon 10-02 Abs Baso <0.03 Normal <0.11 [facility] Comment on above: Performed By: #### P T, PTT, AMYL, CMP, LIPA, PHOS ####[place] [address]#### TRANSF ####[place] [phone] Abs [place] 0.49 k/uL Normal <0.87 [facility] Comment on above: Performed By: #### P T, PTT, AMYL, CMP, LIPA, PHOS ####[place] [phone]#### TRANSF ####[place] [phone] Abs Neut 4.18 k/uL Normal 1.45-7.50 [facility] Comment on above: Performed By: #### P T, PTT, AMYL, CMP, LIPA, PHOS ####[place] [address]#### TRANSF ####[address] [place] [phone] Basophils/100 WBC Auto (Bld) 0.2 % Normal [facility] Comment on above: Performed By: #### P T, PTT, AMYL, CMP, LIPA, PHOS ####[place] [address]#### TRANSF ####[place] [phone] DTYPE Auto Diff Normal [facility] Comment on above: Performed By: #### P T, PTT, AMYL, CMP, LIPA, PHOS ####[place] [address]#### TRANSF ####[place] [phone] Eosinophils 0.23 10*3/uL Normal <0.46 [facility] Comment on above: Performed By: #### P T, PTT, AMYL, CMP, LIPA, PHOS ####[place] [address]#### TRANSF ####[place] [phone] Eosinophils/100 leukocytes 3.6 % Normal [facility] Comment on above: Performed By: #### P T, PTT, AMYL, CMP, LIPA, PHOS ####[place] [address]#### TRANSF ####[place] [phone] Erythrocyte distribution width Auto Ratio (RBC) 16.6 % High 11.5-15.0 [facility] Comment on above: Performed By: #### P T, PTT, AMYL, CMP, LIPA, PHOS ####[place] [address]#### TRANSF ####[place] [phone] Erythrocytes (RBC) 3.13 10*6/uL Low 4.20-6.00 [facility] Comment on above: Performed By: #### P T, PTT, AMYL, CMP, LIPA, PHOS ####[place] [address]#### TRANSF ####[place] [phone] Hematocrit (HCT) 24.3 % Low 39.0-51.0 [facility] Comment on above: Performed By: #### P T, PTT, AMYL, CMP, LIPA, PHOS ####[place] [address]#### TRANSF ####[place] [phone] Hemoglobin mass conc (Bld) 7.8 g/dL Low 13.0-17.0 [facility] Comment on above: Performed By: #### P T, PTT, AMYL, CMP, LIPA, PHOS ####[place] [address]#### TRANSF ####[place] [phone] Lymphocytes 1.56 10*3/uL Normal 1.00-4.00 [facility] Comment on above: Performed By: #### P T, PTT, AMYL, CMP, LIPA, PHOS ####[place] [address]#### TRANSF ####[place] [phone] Lymphocytes/100 leukocytes 24.1 % Normal [facility] Comment on above: Performed By: #### P T, PTT, AMYL, CMP, LIPA, PHOS ####[place] [address]#### TRANSF ####[place] [phone] MCH 24.9 pG Low 26.0-34.0 [facility] Comment on above: Performed By: #### P T, PTT, AMYL, CMP, LIPA, PHOS ####[place] [address]#### TRANSF ####[place] [phone] MCHC mass conc (RBC) 32.1 g/dL Normal 30.5-36.0 [facility] Comment on above: Performed By: #### P T, PTT, AMYL, CMP, LIPA, PHOS ####[place] [address]#### TRANSF ####[place] [phone] MCV 77.6 fL Low 80.0-100.0 [facility] Comment on above: Performed By: #### P T, PTT, AMYL, CMP, LIPA, PHOS ####[place] [address]#### TRANSF ####[place] [phone] Monocytes/100 leukocytes 7.6 % Normal [facility] Comment on above: Performed By: #### P T, PTT, AMYL, CMP, LIPA, PHOS ####[place] [address]#### TRANSF ####[place] [phone] Neutrophils/100 WBC Auto (Bld) 64.5 % Normal [facility] Comment on above: Performed By: #### P T, PTT, AMYL, CMP, LIPA, PHOS ####[place] [address]#### TRANSF ####[place] [phone] Platelet mean volume (PMV) 9.1 fL Normal 9.0-12.7 [facility] Comment on above: Performed By: #### P T, PTT, AMYL, CMP, LIPA, PHOS ####[place] [address]#### TRANSF ####[place] [phone] Platelets 207 10*3/uL Normal 150-400 [facility] Comment on above: Performed By: #### P T, PTT, AMYL, CMP, LIPA, PHOS ####[place] [address]#### TRANSF ####[place] [phone] WBC (Leukocytes) 6.47 10*3/uL Normal 3.70-11.00 [facility] Comment on above: Performed By: #### P T, PTT, AMYL, CMP, LIPA, PHOS ####[place] [address]#### TRANSF ####[place] [phone] CONSULT PROGon 10-02-2017 CONSULT PROG HNO ID: [id number] thor: Matilda LiuService: AnesthesiologyAuthor Type: AnesthesiologistType: Consult Progress NoteFiled: 10/02/2017 9:33 AMNote Text:APS EPIDURAL CATHETER PROGRESS NOTESERVICE DATE: 10/02/2017SERVICE TIME: 9:27 AMPRIMARY SERVICE: HBSSubjectiveINTERVAL HPI:Rocio Jackson is a 62 year old male who is POD #2 S/P WhipplePatient also has an IV PRODUCE BUYER: NoIV Line Appears Intact YesPain at Surgical [...] Placed: Day of surgeryMEDICATIONS:I have interrogated the PRODUCE BUYER pump(s) for the correct settings and solution:Yes.EPIDURAL MEDICATIONS AND PRODUCE BUYER SETTINGS: Other: bupivicaine + hydromorphoneBasal Rate: 4 mL/hr.Patient Demand Bolus: 3 mL.Lockout Interval: 15 Minutes.Additional Medication(s) GIven: See BelowAnticoagulation Therapy: noneCurrent hospital medications:magnesium sulfate in water 2 g in sterile water 50 ml 2 g INTRAVENOUS ONCEsodium phosphate 15 mmol in D5W 250 mL 15 mmol INTRAVENOUS ONCEdocusate sodium 100 mg cap(s) (COLACE) 100 mg ORAL BIDphenol 1 [place] (CHLORASEPTIC) 1 [place] MUCOUS MEMBRANE (TOPICAL MOUTH ANDTHROAT) q 2 [...] (MOTRIN) 800 mg ORAL q 8 HHYDROmorphone PRODUCE BUYER 0.5 mg/mL in NaCl 0.9% 100 mL INTRAVENOUS CONTINUOUSHYDROmorphone 0.5 mg/mL PRODUCE BUYER CLINICIAN DOSE 0.2-0.4 mg 0.2-0.4 mgINTRAVENOUS (PACU) PRNHYDROmorphone 0.5 mg/mL PRODUCE BUYER CLINICIAN DOSE 0.2 mg 0.2 mg INTRAVENOUS q 6 HPRNinsulin lispro injection (rapid acting) (HumaLOG) SUBCUTANEOUS q 6 Hheparin 5,000 Units injection 5,000 Units SUBCUTANEOUS q 12 Hmetoclopramide HCl 10 mg injection (REGLAN) 10 mg INTRAVENOUS q 6 H PRNPHYSICAL EXAM:Patient Vitals for the past 4 hrs: BP Temp Temp src Pulse Resp SpO2 Jvstsa23/06/18 0800 134/79 36.7 ?C (98 ?F) Oral [...] HPI above. Pain wellcontrolled with current epidural PRODUCE BUYER.Assessment: Pain adequately controlled.Patient satisfied with analgesic regimen..Plan of Care: Continue epidural analgesia to promote comfort, mobility,and pulmonary toilet.Plan to start roxicodone tomorrow once the patient continue to tolerateenteral nutrition and hold epidural catheter.SIGNATURE: Matilda Raya MD PATIENT NAME: Rocio JacksonDATE: October 02, 2017 : 9:27 AM PAGER/CONTACT #: Normal [facility] Comp Metabolic Panelon 10-02 Alanine aminotransferase (ALT) 27 U/L Normal 5-50 [facility] Comment on above: Performed By: #### P T, PTT, AMYL, CMP, LIPA, PHOS ####[facility] [place], [place] [phone]#### TRANSF ####[facility] [place], [place] [phone] Albumin 2.5 g/dL Low 3.5-5.0 [facility] Comment on above: Performed By: #### P T, PTT, AMYL, CMP, LIPA, PHOS ####[place] [address]#### TRANSF ####[place] [phone] Alkaline phosphatase (ALP) 68 U/L Normal 40-150 [facility] Comment on above: Performed By: #### P T, PTT, AMYL, CMP, LIPA, PHOS ####[place] [address]#### TRANSF ####[place] [phone] Anion gap 6 mmol/L Low 9-18 [facility] Comment on above: Performed By: #### P T, PTT, AMYL, CMP, LIPA, PHOS ####[place] [address]#### TRANSF ####[place] [phone] Aspartate aminotransferase (AST) 23 U/L Normal 7-40 [facility] Comment on above: Performed By: #### P T, PTT, AMYL, CMP, LIPA, PHOS ####[place] [address]#### TRANSF ####[place] [phone] Bilirubin (total) 0.3 mg/dL Normal 0.0-1.5 [facility] Comment on above: Performed By: #### P T, PTT, AMYL, CMP, LIPA, PHOS ####[place] [address]#### TRANSF ####[address] [place] [phone] Calcium 8.3 mg/dL Low 8.5-10.5 [facility] Comment on above: Performed By: #### P T, PTT, AMYL, CMP, LIPA, PHOS ####[place] [address]#### TRANSF ####[place] [phone] Chloride 103 mmol/L Normal 98-110 [facility] Comment on above: Performed By: #### P T, PTT, AMYL, CMP, LIPA, PHOS ####[place] [address]#### TRANSF ####[place] [address] CO2 26 mmol/L Normal 23-32 [facility] Comment on above: Performed By: #### P T, PTT, AMYL, CMP, LIPA, PHOS ####[place] [address]#### TRANSF ####[place] [address] Creatinine 0.64 mg/dL Low 0.70-1.40 [facility] Comment on above: Performed By: #### P T, PTT, AMYL, CMP, LIPA, PHOS ####[place] [address]#### TRANSF ####[place] [address] eGFR (non-black) mL/min/{1.73_m2} Normal >60 [facility] Comment on above: Performed By: #### P T, PTT, AMYL, CMP, LIPA, PHOS ####[place] [address]#### TRANSF ####[place] [phone] Glucose mass conc 154 mg/dL High 65-100 [facility] Comment on above: Performed By: #### P T, PTT, AMYL, CMP, LIPA, PHOS ####[place] [address]#### TRANSF ####[place] [phone] Potassium molar conc 4.2 mmol/L Normal 3.5-5.0 [facility] Comment on above: Performed By: #### P T, PTT, AMYL, CMP, LIPA, PHOS ####[place] [address]#### TRANSF ####[place] [phone] Protein 5.3 g/dL Low 6.0-8.4 [facility] Comment on above: Performed By: #### P T, PTT, AMYL, CMP, LIPA, PHOS ####[place] [address]#### TRANSF ####[place] [phone] Sodium 135 mmol/L Normal 135-146 [facility] Comment on above: Performed By: #### P T, PTT, AMYL, CMP, LIPA, PHOS ####[place] [address]#### TRANSF ####[place] [phone] Urea nitrogen 22 mg/dL Normal 10-25 [facility] Comment on above: Performed By: #### P T, PTT, AMYL, CMP, LIPA, PHOS ####[place] [address]#### TRANSF ####[place] [phone] Magnesiumon 10-02-2017 Magnesium 1.9 mg/dL Normal 1.7-2.6 [facility] Comment on above: Performed By: #### P T, PTT, AMYL, CMP, LIPA, PHOS ####[facility] [place], [place] [phone]#### TRANSF ####[facility] [place], [place] [phone] NURSING PROGon 10-02-2017 NURSING PROG HNO ID: [id number] thor: Luis (Rn) Clayton Salinasice: (none)Author Type: Registered NurseType: Nursing Progress NoteFiled: 10/02/2017 6:43 PMNote Text: Nursing Progress NotePatient Name: Rocio HayesN: [id number] [id number] ____Daily Note:1600: pt transferred from [facility] to [facility]. Pt sitting in chair.Blood transfusion infusing well without difficulty. Nurse emptied JPdrains x2, see IANDO. Pt states he has no pain at this time. Pt has abuprivacaine-hydromorphone epidural. Epidural control in hand. Willmonitor, call light in reach.1833: blood transfusion completed. Pt tolerated well.This note was completed by: Luis Salinas RN [facility] NURSING PROG HNO ID: [id number] thor: Sabrina (Rn) MOUSTAPHA Cornejoervice: NursingAuthor Type: Registered NurseType: Nursing Progress NoteFiled: 10/02/2017 2:48 PMNote Text: Nursing Progress NotePatient Name: Rocio JacksonN: [id number] [facility]/MR-YTR-18 ___Daily Note:0700 bedside report received from FRANSICO Valerio. Gtt checked.Patient [id number] patient assessed see [id number] OT at bedside assessing patient.0840 patient walked with a walker and OT 1 [id number] patient tolerates chair 1 assist up to stand and march in [id number] called report to [id number] note was completed by: Sabrina Cornejo RN [facility] PROGRESSon 10-02-2017 PROGRESS HNO ID: [id number] thor: Rick Diaze: Critical CareAuthor Type: PhysicianType: [...] ICU Staff Dr. Boothe.Kolby Brown MDGeneral Surgery[C]: [phone] [P]: [id number]: 10/02/2017Time: 10:32 AMSubjective:Interval Events: NAEON. TFs at goal.Physical Exam:BP 134/79 Pulse 88 Temp 36.7 ?C (98 ?F) (Oral) Resp 19 Ht 172.7 cm(5' 7.99 ) Wt 88.8 kg (195 lb 12.3 oz) SpO2 98% BMI 29.77 kg/t5HWUMDWY: Well appearing 62 year old male in no distressNEURO: AAOx3, [id number]: Atraumatic, corpak in palceCHEST: nonlabored breathing on [...] 10/02/17 0659 10/02/17 07 - 10/03/17 0659Shift 0338-6061 2818-6960 0879-3666 24 Hour Total 0878-5627 4171-38710683-6473 24 Hour TotalINTAKE PO 0 97 482 [...] 2886 601.6 3637.6 60 60OUTPUT Urine 310 770 686 3808 75 75 Tube Output ( Indwelling Urinary Catheter 09/30/17 0909 [place] 16Fr) 310 318 744 7219 75 75 Tubes 70 135 35 240 [...] BM (mL) 0 0 Shift Total 380 780 927 5157 75 75Weight (kg) 81.1 81.1 88.8 88.8 88.8 88.8 88.8 88.8Current Medications:Current hospital medications:magnesium sulfate in water 2 g in sterile water 50 ml 2 g INTRAVENOUS ONCEsodium phosphate 15 mmol in D5W 250 mL 15 mmol INTRAVENOUS ONCEdocusate sodium 100 mg cap(s) (COLACE) 100 mg ORAL BIDphenol 1 [place] (CHLORASEPTIC) 1 [place] MUCOUS MEMBRANE (TOPICAL MOUTH ANDTHROAT) q 2 [...] (MOTRIN) 800 mg ORAL q 8 HHYDROmorphone PRODUCE BUYER 0.5 mg/mL in NaCl 0.9% 100 mL INTRAVENOUS CONTINUOUSHYDROmorphone 0.5 mg/mL PRODUCE BUYER CLINICIAN DOSE 0.2-0.4 mg 0.2-0.4 mgINTRAVENOUS (PACU) PRNHYDROmorphone 0.5 mg/mL PRODUCE BUYER CLINICIAN DOSE 0.2 mg 0.2 mg INTRAVENOUS [...] 5 mg tab Take by mouth once daily.[facility] STAFF PHYSICIAN SUPERVISING RESIDENTI have [...] of SERVICE: 10/02/2017TIME of SERVICE: 12:44 PM [facility] PROGRESS HNO ID: [id number] thor: Michael Cedillo) AugustinService: General SurgeryAuthor Type: [...] that 2pm- IPCs, SQH- anticipate transfer to [facility] to be discussed with staffSubjective:No acute events overnight. Tolerated sips of liquids no n/v. No flatus orBM.Physical Exam:BP 134/79 Pulse 88 Temp 36.7 ?C (98 ?F) (Oral) Resp 19 Ht 172.7 cm(5' 7.99 ) Wt 88.8 kg (195 lb 12.3 oz) SpO2 98% BMI 29.77 kg/f1IAOUNHP: no acute distressABDOMEN: soft, diffusely tender, nondistended. [...] 10/02/17 0659 10/02/17 07 - 10/03/17 0659Shift 4906-8215 9513-8901 5730-9000 24 Hour Total 0411-4702 4480-06912619-5165 24 Hour TotalINTAKE PO 0 97 482 [...] 2886 601.6 3637.6 60 60OUTPUT Urine 310 992 534 9849 75 75 Tube Output ( Indwelling Urinary Catheter 09/30/17 0909 [place] 16Fr) 310 987 817 9487 75 75 Tubes 70 135 35 240 [...] BM (mL) 0 0 Shift Total 380 636 948 2481 75 75Weight (kg) 81.1 81.1 88.8 88.8 88.8 88.8 88.8 88.8Current Medications:Current hospital medications:magnesium sulfate in water 2 g in sterile water 50 ml 2 g INTRAVENOUS ONCEsodium phosphate 15 mmol in D5W 250 mL 15 mmol INTRAVENOUS ONCEdocusate sodium 100 mg cap(s) (COLACE) 100 mg ORAL BIDphenol 1 [place] (CHLORASEPTIC) 1 [place] MUCOUS MEMBRANE (TOPICAL MOUTH ANDTHROAT) q 2 [...] (MOTRIN) 800 mg ORAL q 8 HHYDROmorphone PRODUCE BUYER 0.5 mg/mL in NaCl 0.9% 100 mL INTRAVENOUS CONTINUOUSHYDROmorphone 0.5 mg/mL PRODUCE BUYER CLINICIAN DOSE 0.2-0.4 mg 0.2-0.4 mgINTRAVENOUS (PACU) PRNHYDROmorphone 0.5 mg/mL PRODUCE BUYER CLINICIAN DOSE 0.2 mg 0.2 mg INTRAVENOUS q 6 HPRNinsulin lispro injection (rapid acting) (HumaLOG) SUBCUTANEOUS q 6 Hheparin 5,000 Units injection 5,000 Units SUBCUTANEOUS q 12 Hmetoclopramide HCl 10 mg injection (REGLAN) 10 mg INTRAVENOUS q 6 H PRNSignature: Jennifer Adan, MDDate: October 02, 2017Time: 9:55 AMPatient Name: Rocio Boudreaux: [id number]*Please page the implementation analyst pager from 6pm-6am and all day on weekends* Normal [facility] Phosphoruson 10-02-2017 Phosphate 2.3 mg/dL Low 2.5-4.5 [facility] Comment on above: Performed By: #### P T, PTT, AMYL, CMP, LIPA, PHOS ####[facility] [place], [place] [phone]#### TRANSF ####[facility] [address] [place], [place] [phone] THERAPY NTon 10-02-2017 THERAPY NT HNO ID: [id number] thor: Jacqueline (Ot) HallService: Occupational TherapyAuthor Type: Occupational TherapistType: Therapy (PT/OT/Speech/Resp)Filed: 10/02/2017 8:55 AMNote Text:Occupational Therapy EvaluationSERVICE DATE: 10/02/2017SERVICE TIME: 0820 to 0843ROOM: [id number] Discharge Disposition: Acute RehabJustification For Post Acute [...] Pt?s pertinent PMH includes: DM, HTN,CAD, glaucoma, [place], cholecystectomy c/b leak found to have duodenal [...] Involving Cognitive Functions andAwarenessInterventions Provided: Evaluation;Therapeutic Activity (30060)$ Evaluation-Low (40358) Billed Units: 1 unitTherapeutic Activity (03471) Treatment Minutes: 81 unitSkilled Intervention(s): Instructed patient [...] has assist with all IADLs. Works in [employer]. Amb Ind.OBJECTIVE:Orientation Deficits: ConfusedResponsiveness: AwakeFollows Commands: 2-step [...] October 02, 2017 : 8:50 AM PAGER: [phone] Normal [facility] Type and Screenon 10-02-2017 ABO/RH(D) Positive [facility] Comment on above: Performed By: #### P T, PTT, AMYL, CMP, LIPA, PHOS ####[place] [phone]#### TRANSF ####[place] [phone] Antibody Screen Negative [facility] Comment on above: Performed By: #### P T, PTT, AMYL, CMP, LIPA, PHOS ####[place] [phone]#### TRANSF ####[place] [phone] Amylaseon 10-01-2017 Amylase 151 U/L High 0-137 [facility] Comment on above: Performed By: #### P T, PTT, AMYL, CMP, LIPA, PHOS ####[address], [place] [phone]#### TRANSF ####[facility] [address] [place], [place] [phone] Amylase,Body Fluidon 018 Amylase 817 U/L Critically abnormal See Comment [facility] Comment on above: Result Comment: (NOT [...] CLSI document C49-A. SAIMA Contreras: Clinical LaboratoryStandards [place]; 2007.3. Kya EDUARDO, Angelia SANCHEZ, Nimo DJ. Use of cyst fluid CEA,CA19-9, and amylase for evaluation of pancreatic lesions. ClinicalBiochemistry. 2009;42:3679-0960.This test was developed and its performance characteristicsdetermined by [facility]'s [facility] Pathology andLaboratory Medicine [place] ([facility]).It has not been cleared or approved by the FDA. -[facility] is regulatedunder CLIA as qualified to perform high-complexity testing.This test is used for clinical purposes. It should not be regarded asinvestigational or for research. Performed By: #### P T, PTT, AMYL, CMP, LIPA, PHOS ####[facility] [place], [place] [phone]#### TRANSF ####[facility] [address] [place], [place] [phone] Amylase 1954 U/L Critically abnormal See Comment [facility] Comment on above: Result Comment: (NOT [...] CLSI document C49-A. SAIMA Contreras: Clinical LaboratoryStandards [place]; 2007.3. Kya EDUARDO, Angelia RC, Nimo DJ. Use of cyst fluid CEA,CA19-9, and amylase for evaluation of pancreatic lesions. ClinicalBiochemistry. 2009;42:4336-3734.This test was developed and its performance characteristicsdetermined by [facility]'s [facility] Pathology andLaboratory Medicine [place] ([facility]).It has not been cleared or approved by the FDA. [facility] is regulatedunder CLIA as qualified to perform high-complexity testing.This test is used for clinical purposes. It should not be regarded asinvestigational or for research. Performed By: #### P T, PTT, AMYL, CMP, LIPA, PHOS ####[facility] [place], [place] [phone]#### TRANSF ####[place] [phone] Fluid Type Peritoneal Fluid Normal [facility] Comment on above: Performed By: #### P T, PTT, AMYL, CMP, LIPA, PHOS ####[place] [id number] [phone]#### TRANSF ####[place] [phone] Result Comment: LEFT CASE MGT INIT SANDRAon 2017 CASE MGT INIT SANDRA HNO ID: [id number] thor: Catherine Humphries (Rn) Leeann RNService: Case ManagementAuthor Type: Registered NurseType: Care Mgt Initial AssessmentFiled: 10/01/2017 12:22 PMNote Text:CARE MANAGEMENT: ASSESSMENT AND DISCHARGE PLANSERVICE DATE: 10/01/2017SERVICE TIME: 11:13 amPRIRIVERVIEW REGIONAL [facility] CARE PHYSICIAN:Adriane Nichols, DOPhone: [phone] STATUS: InpatientNeeds Prior to Discharge: To Be Determined;OT/PT EvaluationMEDICAL:Patient/Re presentative Stated Goals:To improve my functional statusTo return home to life as it wasHealth Insurance:[facility] Issues Impacting Discharge Plan: DM, [...] Services or Home Care? HomeHealth Care Agency: [facility]; ; Active.Equipment Prior to Admission: Tub bench/chairWalkerHas the Patient Been in a Chcf Facility in the Past 30 days?Yes. Where and Dates: [facility] in [place] MGUHVR:Emily ing Arrangement: HomeLives With: Sister since his discharge from [facility] in August of 2017.Financial Resources: Patient is employedPrimary Contact: Extended Emergency Contact InformationPrimary Emergency Contact: Bladimir Mullerress: [address] [place], [place] [address]Yhdz Kskyoqpk: SiblingSupportive: YesOther Important Patient Contacts: NoneCaregiver Assessment:Caregiver [...] - 0I feel financially burdened by my xkb-mm-hmmpmo expenses for myprescription medication: Disagree mostly -0Patient [...] OF CHOICE EXPLAINED:Yes on 10/01/17POTENTIAL TRANSITION PLANSHome [facility]/Intermediate Care FacilityCM met with patient at bedside. His two sisters were in the room at thetime, and patient approved their staying in the room during theassessment. 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 He currently lives with his sister who ishelping with his care since his discharge from [facility] in August. He is active with [facility], and stated he washappy with their services. Patient will need a PT/OT evaluation todetermine skilled/safety needs. CM will continue to follow plan of care toassist with discharge planning.SIGNATURE: Catherine Bradshaw RN PATIENT NAME: Rocio JacksonDATE: October 01, 2017 : 11:13 AM PAGER/CONTACT #: [phone] Normal [facility] CBC and Differentialon 10-01 Abs Baso <0.03 Normal <0.11 [facility] Comment on above: Performed By: #### P T, PTT, AMYL, CMP, LIPA, PHOS ####[place] [address]#### TRANSF ####[place] [id number] Abs [place] 0.60 k/uL Normal <0.87 [facility] Comment on above: Performed By: #### P T, PTT, AMYL, CMP, LIPA, PHOS ####[place] [address]#### TRANSF ####[place] [phone] Abs Neut 5.57 k/uL Normal 1.45-7.50 [facility] Comment on above: Performed By: #### P T, PTT, AMYL, CMP, LIPA, PHOS ####[place] [address]#### TRANSF ####[place] [id number] Basophils/100 WBC Auto (Bld) 0.0 % Normal [facility] Comment on above: Performed By: #### P T, PTT, AMYL, CMP, LIPA, PHOS ####[place] [address]#### TRANSF ####[address] Av[place] [phone] DTYPE Auto Diff Normal [facility] Comment on above: Performed By: #### P T, PTT, AMYL, CMP, LIPA, PHOS ####[place] [address]#### TRANSF ####[address] [place] [place] [phone] Eosinophils 10*3/uL Normal <0.46 [facility] Comment on above: Performed By: #### P T, PTT, AMYL, CMP, LIPA, PHOS ####[place] [address]#### TRANSF ####[place] [phone] Eosinophils/100 leukocytes 0.0 % Normal [facility] Comment on above: Performed By: #### P T, PTT, AMYL, CMP, LIPA, PHOS ####[place] [address]#### TRANSF ####[place] [phone] Erythrocyte distribution width Auto Ratio (RBC) 16.4 % High 11.5-15.0 [facility] Comment on above: Performed By: #### P T, PTT, AMYL, CMP, LIPA, PHOS ####[place] [address]#### TRANSF ####[place] [phone] Erythrocytes (RBC) 3.53 10*6/uL Low 4.20-6.00 [facility] Comment on above: Performed By: #### P T, PTT, AMYL, CMP, LIPA, PHOS ####[place] [address]#### TRANSF ####[place] [phone] Hematocrit (HCT) 27.4 % Low 39.0-51.0 [facility] Comment on above: Performed By: #### P T, PTT, AMYL, CMP, LIPA, PHOS ####[place] [address]#### TRANSF ####[place] [phone] Hemoglobin mass conc (Bld) 8.8 g/dL Low 13.0-17.0 [facility] Comment on above: Performed By: #### P T, PTT, AMYL, CMP, LIPA, PHOS ####[place] [address]#### TRANSF ####[place] [phone] Lymphocytes 2.21 10*3/uL Normal 1.00-4.00 [facility] Comment on above: Performed By: #### P T, PTT, AMYL, CMP, LIPA, PHOS ####[place] [address]#### TRANSF ####[place] [phone] Lymphocytes/100 leukocytes 26.4 % Normal [facility] Comment on above: Performed By: #### P T, PTT, AMYL, CMP, LIPA, PHOS ####[place] [address]#### TRANSF ####[place] [phone] MCH 24.9 pG Low 26.0-34.0 [facility] Comment on above: Performed By: #### P T, PTT, AMYL, CMP, LIPA, PHOS ####[place] [address]#### TRANSF ####[place] [phone] MCHC mass conc (RBC) 32.1 g/dL Normal 30.5-36.0 [facility] Comment on above: Performed By: #### P T, PTT, AMYL, CMP, LIPA, PHOS ####[place] [address]#### TRANSF ####[place] [phone] MCV 77.6 fL Low 80.0-100.0 [facility] Comment on above: Performed By: #### P T, PTT, AMYL, CMP, LIPA, PHOS ####[place] [address]#### TRANSF ####[place] [phone] Monocytes/100 leukocytes 7.2 % Normal [facility] Comment on above: Performed By: #### P T, PTT, AMYL, CMP, LIPA, PHOS ####[place] [address]#### TRANSF ####[place] [phone] Neutrophils/100 WBC Auto (Bld) 66.4 % Normal [facility] Comment on above: Performed By: #### P T, PTT, AMYL, CMP, LIPA, PHOS ####[place] [address]#### TRANSF ####[place] [phone] Platelet mean volume (PMV) 9.7 fL Normal 9.0-12.7 [facility] Comment on above: Performed By: #### P T, PTT, AMYL, CMP, LIPA, PHOS ####[address] [phone]#### TRANSF ####[address] [phone] Platelets 230 10*3/uL Normal 150-400 [facility] Comment on above: Performed By: #### P T, PTT, AMYL, CMP, LIPA, PHOS ####[place] [phone]#### TRANSF ####[address] [phone] WBC (Leukocytes) 8.38 10*3/uL Normal 3.70-11.00 [facility] Comment on above: Performed By: #### P T, PTT, AMYL, CMP, LIPA, PHOS ####[place] [phone]#### TRANSF ####[address] [phone] CONSULT PROGon 10-01-2017 CONSULT PROG HNO ID: [id number] thor: Matilda Malloy: Pain ManagementAuthor Type: AnesthesiologistType: [...] catheter placed: Day of surgeryMEDICATIONS:Epidural Medications and PRODUCE BUYER SettingsBupivacaine 0.1% + DilaudidBasal rate: 6 mL/hr.Patient Demand Bolus: 3 mL.Lockout interval: 4 minutes.Additional medication(s) given: See belowAnticoagulation therapy: Lovenox 40 mgLast Dose given: due at [address] [place] [address] medications:magnesium sulfate in sterile water 4 g [...] (MOTRIN) 800 mg ORAL q 8 HHYDROmorphone PRODUCE BUYER 0.5 mg/mL in NaCl 0.9% 100 mL INTRAVENOUS CONTINUOUSHYDROmorphone 0.5 mg/mL PRODUCE BUYER CLINICIAN DOSE 0.2-0.4 mg 0.2-0.4 mgINTRAVENOUS (PACU) PRNHYDROmorphone 0.5 mg/mL PRODUCE BUYER CLINICIAN DOSE 0.2 mg 0.2 mg INTRAVENOUS q 6 HPRNinsulin lispro injection (rapid acting) (HumaLOG) SUBCUTANEOUS q 6 Hheparin 5,000 Units injection 5,000 Units SUBCUTANEOUS q 12 Henoxaparin 40 mg injection (LOVENOX) 40 mg SUBCUTANEOUS DAILYmetoclopramide HCl 10 mg injection (REGLAN) 10 mg INTRAVENOUS q 6 H PRNPHYSICAL EXAM:Patient Vitals for the past 8 hrs: Temp Temp src Pulse Resp SpO2 Height Vxipky67/05/18 0700 - - 87 17 97 % [...] 01, 2017 : 8:47 AM PAGER/CONTACT #: [facility] [phone] Normal [facility] Comp Metabolic Panelon 10-01 Alanine aminotransferase (ALT) 35 U/L Normal 5-50 [facility] Comment on above: Performed By: #### P T, PTT, AMYL, CMP, LIPA, PHOS ####[facility] [place], [place] [phone]#### TRANSF ####[facility] [place], [place] [phone] Albumin 2.6 g/dL Low 3.5-5.0 [facility] Comment on above: Result Comment: Revi ewed Performed By: #### P T, PTT, AMYL, CMP, LIPA, PHOS ####[place] [address]#### TRANSF ####[place] [phone] Alkaline phosphatase (ALP) 70 U/L Normal 40-150 [facility] Comment on above: Performed By: #### P T, PTT, AMYL, CMP, LIPA, PHOS ####[place] [address]#### TRANSF ####[place] [phone] Anion gap 12 mmol/L Normal 9-18 [facility] Comment on above: Performed By: #### P T, PTT, AMYL, CMP, LIPA, PHOS ####[place] [address]#### TRANSF ####[place] [phone] Aspartate aminotransferase (AST) 32 U/L Normal 7-40 [facility] Comment on above: Performed By: #### P T, PTT, AMYL, CMP, LIPA, PHOS ####[place] [address]#### TRANSF ####[place] [phone] Bilirubin (total) 0.3 mg/dL Normal 0.0-1.5 [facility] Comment on above: Performed By: #### P T, PTT, AMYL, CMP, LIPA, PHOS ####[place] [address]#### TRANSF ####[place] [phone] Calcium 7.7 mg/dL Low 8.5-10.5 [facility] Comment on above: Performed By: #### P T, PTT, AMYL, CMP, LIPA, PHOS ####[place] [address]#### TRANSF ####[place] [phone] Chloride 105 mmol/L Normal 98-110 [facility] Comment on above: Performed By: #### P T, PTT, AMYL, CMP, LIPA, PHOS ####[place] [address]#### TRANSF ####[place] [phone] CO2 23 mmol/L Normal 23-32 [facility] Comment on above: Performed By: #### P T, PTT, AMYL, CMP, LIPA, PHOS ####[place] [address]#### TRANSF ####[place] [phone] Creatinine 0.78 mg/dL Normal 0.70-1.40 [facility] Comment on above: Performed By: #### P T, PTT, AMYL, CMP, LIPA, PHOS ####[place] [address]#### TRANSF ####[place] [phone] eGFR (non-black) mL/min/{1.73_m2} Normal >60 [facility] Comment on above: Performed By: #### P T, PTT, AMYL, CMP, LIPA, PHOS ####[place] [address]#### TRANSF ####[place] [phone] Glucose mass conc 145 mg/dL High 65-100 [facility] Comment on above: Performed By: #### P T, PTT, AMYL, CMP, LIPA, PHOS ####[place] [address]#### TRANSF ####[place] [phone] Potassium molar conc 4.8 mmol/L Normal 3.5-5.0 [facility] Comment on above: Performed By: #### P T, PTT, AMYL, CMP, LIPA, PHOS ####[place] [address]#### TRANSF ####[place] [phone] Protein 5.1 g/dL Low 6.0-8.4 [facility] Comment on above: Performed By: #### P T, PTT, AMYL, CMP, LIPA, PHOS ####[place] [address]#### TRANSF ####[place] [phone] Sodium 140 mmol/L Normal 135-146 [facility] Comment on above: Performed By: #### P T, PTT, AMYL, CMP, LIPA, PHOS ####[place] [address]#### TRANSF ####[place] [phone] Urea nitrogen 20 mg/dL Normal 10-25 [facility] Comment on above: Performed By: #### P T, PTT, AMYL, CMP, LIPA, PHOS ####[place] [address]#### TRANSF ####[place] [phone] HISTORY PHYSICALon 8 HISTORY PHYSICAL HNO ID: [id number] thor: Pretty (Fel) KrystinarykService: Critical CareAuthor Type: [...] Date- ANGIOPLASTY HX 05/15/2011 2 stents s/p [place];[facility]- CHOLECYSTECTOMY 08/11/2017 [facility]- PICC LINE INSERT/CONSULT 08/16/2017No family history on [...] 110/88 CVP: 2 Resp: 18 SpO2: 100 %[place] Readings: Not applicableRESPIRATORYMechani rachid Ventilation: No. Supplemental Oxygen: Yes. 2 L NCRecent Labs 09/30/021438NUOV 2.3*PHYSICAL EXAMNeuro: AwakePulmonary: Clear to auscultation. Breath [...] (TORADOL) 15 mg INTRAVENOUS q 6 HHYDROmorphone PRODUCE BUYER 0.5 mg/mL in NaCl 0.9% 100 mL INTRAVENOUS CONTINUOUSHYDROmorphone 0.5 mg/mL PRODUCE BUYER CLINICIAN DOSE 0.2-0.4 mg 0.2-0.4 mgINTRAVENOUS (PACU) PRNHYDROmorphone 0.5 mg/mL PRODUCE BUYER CLINICIAN DOSE 0.2 mg 0.2 mg INTRAVENOUS [...] staff: Dr. Junior: epidural in place, Hydromorphone PRODUCE BUYER, ToradolCV: Intermittent hypotension, no vasopressor requiredPulm: CTA [...] 01, 2017 : 5:54 AM PAGER/CONTACT #: [phone] Normal [facility] Magnesiumon 10-01-2017 Magnesium 2.1 mg/dL Normal 1.7-2.6 [facility] Comment on above: Performed By: #### P T, PTT, AMYL, CMP, LIPA, PHOS ####[place] [address]#### TRANSF ####[place] [phone] Magnesium 1.3 mg/dL Low 1.7-2.6 [facility] Comment on above: Performed By: #### P T, PTT, AMYL, CMP, LIPA, PHOS ####[place] [address]#### TRANSF ####[facility] [address] [place] [phone] NURSING PROGon 10-01-2017 NURSING PROG HNO ID: [id number] thor: Cee (Rn) MOUSTAPHA Dialervice: (none)Author Type: Registered NurseType: Nursing Progress NoteFiled: 10/01/2017 7:58 PMNote Text: Nursing Progress NotePatient Name: Rocio JacksonMRN: [id number] Location: [facility]/UE-KOV-69 ___Daily Note:1900: Bedside report received from previous shift RN.This note was completed by: Cee Dial RN [facility] NURSING PROG HNO ID: [id number] thor: Marysol (Rn) MOUSTAPHA Agervice: Critical CareAuthor Type: Registered NurseType: Nursing Progress NoteFiled: 10/01/2017 1:35 PMNote Text: Nursing Progress NotePatient Name: Rocio JacksonMRN: [id number] Location: [facility]/BE-XWA-99 ___Daily Note:0715-bedside report received from Reed BATEMAN.0720- surgical team at bedside to assess patient. 1 L LR bolus ordered forhypotension.1125- Dr. Raya text paged SICU 7 D.F.-- Patient's SBP continues to remainlow after 2 fluid boluses, Dr. Boothe asked that I page pain management tosee if it would be appropriate to decrease the basal rate on his epidural.Thank you, Laura RN [id number] . Dr. Raya returned page, will place order todecrease basal rate of epidural to 4cc/hr.1330- Dr. Brown text paged SICU 7 D.F.-- patient's urine output has fvoz79fb/hr x2 hours. Blood pressure has improved, we decreased the basal rateof his epidural. Also, he would like throat spray, his throat is sore.Thank you, Laura BATEMAN [phone] This note was completed by: Marysol Ag, RN [facility] NURSING PROG HNO ID: [id number] thor: Radha Ndiaye NsService: (none)Author Type: (none)Type: Nursing Progress NoteFiled: 10/01/2017 6:01 AMNote Text: Nursing Progress NotePatient Name: Rocio Boudreaux: [id number] Location: [place] [address]/CE-EQF-35 ___Daily Note:1909- Report complete. VSS on 6L [...] changes, see flowsheet.Labs and amylase drawn and tkrw5721- MD notified of low magnesium level, waiting for mag replacement tocome up from wyyvcexl1026- Report given to day shift nurseThis note was completed by: Reed Rincon RN [facility] NUTRITIONon 10-01-2017 NUTRITION HNO ID: [id number] thor: Bailey TrippService: Nutrition TherapyAuthor Type: Registered [...] mass 09/30, who was admitted to the [facility] further care.Present Diet Order: NPO [...] 81 kgResting Metabolic Rate: 1599Estimated kilocalorie needs: 7142-1773 kilocalories determined by 20-25kcal/kgEstimated protein needs: 105-138 grams determined by 1.3-1.7 g/kg DosingweightEstimated fluid needs: 5982-9561 milliliters based on 1 mL per kcalNUTRITION [...] lb 12.7 oz) SpO2 95% BMI 27.19 kg/d5Skvgob Labs 140989ENSE 145*BUN 20CREAT 0.78NA 140K 4.8CHLOR 105CO2 23ALB [...] (TORADOL) 15 mg INTRAVENOUS q 6 HHYDROmorphone PRODUCE BUYER 0.5 mg/mL in NaCl 0.9% 100 mL INTRAVENOUS CONTINUOUSHYDROmorphone 0.5 mg/mL PRODUCE BUYER CLINICIAN DOSE 0.2-0.4 mg 0.2-0.4 mgINTRAVENOUS (PACU) PRNHYDROmorphone 0.5 mg/mL PRODUCE BUYER CLINICIAN DOSE 0.2 mg 0.2 mg INTRAVENOUS [...] October 01, 2017 : 1:49 PM PAGER: [phone] further assistance and weekends please page the Group [phone] [facility] PROGRESSon 10-01-2017 PROGRESS HNO ID: [id number] thor: Rick Diaze: Critical CareAuthor Type: PhysicianType: [...] theabove surgeryNeuro:- Analgesia: Tylenol, toradol/Motrin, bupivacaine, dilaudid PRODUCE BUYER onceepidural removed- Anxiety/Sedation: NoneCardiovascular:- ASA 162- statin- [...] ICU Staff Dr. Boothe.Kolby Brown MDGeneral Surgery[C]: [phone] [P]: 20934Cajo: 10/01/2017Time: 9:59 AMSubjective:Interval Events: NAEON. Pain controlled. Thirsty. Slept ok.Physical Exam:BP 110/88 Pulse 87 Temp 37.4 ?C (99.3 ?F) (Oral) Resp 17 Ht 172.7cm (5' 7.99 ) Wt 81.1 kg (178 lb 12.7 oz) SpO2 97% BMI 27.19 kg/z0FAJLMUB: Well appearing 62 year old male in no distressNEURO: AAox3, BAD32DSYIW: Corpak/NGT in placeCHEST: nonlabored breathing on RA. [...] - 10/01/17 0659 10/01/17699 - 10/02/17 0659Shift 9039-3940 6619-5919 7560-1451 24 Hour Total 1592-1934 0050-18169612-6271 24 Hour TotalINTAKE IV 3240.1 1967 5207.1 [...] BMs 0 x 0 x Shift Total 277 611 8510 40 40Weight (kg) 81.1 81.1 81.1 81.1 [...] (MOTRIN) 800 mg ORAL q 8 HHYDROmorphone PRODUCE BUYER 0.5 mg/mL in NaCl 0.9% 100 mL INTRAVENOUS CONTINUOUSHYDROmorphone 0.5 mg/mL PRODUCE BUYER CLINICIAN DOSE 0.2-0.4 mg 0.2-0.4 mgINTRAVENOUS (PACU) PRNHYDROmorphone 0.5 mg/mL PRODUCE BUYER CLINICIAN DOSE 0.2 mg 0.2 mg INTRAVENOUS [...] 5 mg tab Take by mouth once daily.[facility] STAFF PHYSICIAN SUPERVISING RESIDENTI have [...] SERVICE: 10/01/2017TIME of SERVICE: 1:30 PM [facility] PROGRESS HNO ID: [id number] thor: Michael Cedillo) AugustinService: General SurgeryAuthor Type: PhysicianType: Progress NotesFiled: 10/01/2017 1:19 PMNote Text:GENERAL SURGERY RESIDENT PROGRESS NOTEAssessment/Plan62 year old male hx HTN, DM, CAD s/p PCI, who underwent a classic whipplefor an obstructing duodenal mass 09/30, who was admitted to the SICU forfurther care.Plan:Start TF at trickle and ok to advance to [facility] ROMINA amylase x2D/c NGTAnticipate ok to Tx to RNF in PM if pressures are betterContinue EpiduralCaleb MD JaneGeneral Surgery, COM8Srasoquk Pager: [phone], General Surgery Pager [phone]/11/13 9:19 AMPlease page [phone] on weekends and between 6 PM and [...] (MOTRIN) 800 mg ORAL q 8 HHYDROmorphone PRODUCE BUYER 0.5 mg/mL in NaCl 0.9% 100 mL INTRAVENOUS CONTINUOUSHYDROmorphone 0.5 mg/mL PRODUCE BUYER CLINICIAN DOSE 0.2-0.4 mg 0.2-0.4 mgINTRAVENOUS (PACU) PRNHYDROmorphone 0.5 mg/mL PRODUCE BUYER CLINICIAN DOSE 0.2 mg 0.2 mg INTRAVENOUS q 6 HPRNinsulin lispro injection (rapid acting) (HumaLOG) SUBCUTANEOUS q 6 Hheparin 5,000 Units injection 5,000 Units SUBCUTANEOUS q 12 Henoxaparin 40 mg injection (LOVENOX) 40 mg SUBCUTANEOUS DAILYmetoclopramide HCl 10 mg injection (REGLAN) 10 mg INTRAVENOUS q 6 H PRN Normal [facility] Phosphoruson 10-01-2017 Phosphate 3.0 mg/dL Normal 2.5-4.5 [facility] Comment on above: Performed By: #### P T, PTT, AMYL, CMP, LIPA, PHOS ####[facility] [place], [place] [phone]#### TRANSF ####[facility] [place], [place] [phone] Phosphate 4.4 mg/dL Normal 2.5-4.5 [facility] Comment on above: Performed By: #### P T, PTT, AMYL, CMP, LIPA, PHOS ####[facility] [place], [place] [phone]#### TRANSF ####[facility] [address] [place], [place] [phone] THERAPY NTon 10-01-2017 THERAPY NT HNO ID: [id number] thor: Son Salgado (Pt) ChandanaService: Physical TherapyAuthor Type: Physical TherapistType: Therapy (PT/OT/Speech/Resp)Filed: 10/01/2017 6:13 PMNote Text:Physical Therapy EvaluationSERVICE DATE: 10/01/2017SERVICE TIME: 1010 to 1045ROOM: [id number] Discharge Disposition: Acute RehabJustification For Post Acute Needs: Anticipate patient will tolerate 3hours of daily therapy at [facility];Cognition intact;Medically complex;Willing to participate;Livingthe community premorbidly;Good family [...] Reduced mobility-other;Muscle Weakness (generalized)Interventions Provided: Evaluation;Therapeutic Activity (73071)$ Evaluation-Moderate (99403) Billed Units: 1 unitTherapeutic Activity (84339) Treatment Minutes: 101 unitSkilled Intervention(s): Instructed patient [...] mobility assessmentRelevant Past Medical History: HTN, DM, [place], richelle 08/11/17, ARF, refer tochart for full [...] Assistance;Other: See Comment (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, 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)Assistance Required With: Cleaning;Laundry;Meals;Other : See Comment(Shares IADL's)OBJECTIVE:CURRENT [...] 01, 2017 : 6:08 PM PAGER/CONTACT #: [phone] [facility] ANES Ila 09-30-2017 ANES POST HNO ID: [id number] thor: Bogdan Montenegro, IService: AnesthesiologyAuthor Type: AnesthesiologistType: [...] Remarks:SIGNATURE: Bogdan Montenegro MD PATIENT NAME: Rocio JacksnoDATE: September 30, 2017 : 5:52 PM PAGER/CONTACT #: [phone] [facility] ANES PREOPon 09-30-2017 ANES PREOP HNO ID: [id number] thor: Brian Mendezervice: AnesthesiologyAuthor Type: AnesthesiologistType: Anesthesia PreOpFiled: 09/30/2017 8:34 AMNote Text:REGIONAL ANESTHESIOLOGY DAY OF SURGERY NOTEPATIENT NAME: Rocio JacksonMRN: [id number]: 1957Procedure(s) (LRB):LAPAROSCOPY DIAGNOSTIC (N/A)WHIPPLE PROCEDURE, WITH PANCREATOJEJUNOST [...] with exertion.Denies change in functional capacity.Denies GERD.HTNNIDMHx WI s/p stent 2010; no issues sinceBaseline anemiaChronic [...] Date- ANGIOPLASTY HX 05/15/2011 2 stents s/p [place];[facility]- CHOLECYSTECTOMY 08/11/2017 [facility]- PICC LINE INSERT/CONSULT 08/16/2017No family history on [...] by mouth once daily.Inpatient medications reviewed in [facility].I have interviewed and examined the patient. I have reviewed the medicalrecord and/or the pre-anesthesia evaluation, pertinent labs, and testresults.Significant changes in the patient's condition since the History andPhysical, not otherwise documented in primary service progress notes: NoThis contains updated information obtained within 48 hours ofSurgery/Procedure.SIGNATUR E: Brian Orona MD PATIENT NAME: Rocio JacksonDATE: September 30, 2017 : 8:29 AM PAGER/CONTACT #: [phone] (pager) Normal [facility] APTTon 09-30-2017 aPTT 25.9 s Normal 23.0-32.4 [facility] Comment on above: Result Comment: Unfr [...] laboratory APTT reagent in use throughout the [facility]. Performed By: #### P T, PTT, AMYL, CMP, LIPA, PHOS ####[facility] [place], [place] [phone]#### TRANSF ####[facility] [address] [place], [place] [phone] BRIEF OP NOTon 09-30-2017 BRIEF OP NOT HNO ID: [id number] thor: Mundo (Georges)(Hist) ElvaisService: General SurgeryAuthor Type: ResidentType: Brief Op NoteFiled: 09/30/2017 5:02 PMNote Text:BRIEF OP NOTELOG ID: [id number]/Procedure Date: 09/30/2017Incision/Procedure Start Time: 9:40 AMIncision Close/Procedure End Time: 4:46 PMSurgeon(s)/Proceduralist(s ) and Solar Field Service Technician(s):Surgeon(s) and Role: * Michael Cedillo) Jolley - [...] sameSIGNATURE: Mundo Villanueva MD PATIENT NAME: Rocio aJcksonDATE: September 30, 2017 : 4:58 PM PAGER/CONTACT #: Normal [facility] CBCon 09-30-2017 Erythrocyte distribution width Auto Ratio (RBC) 16.2 % High 11.5-15.0 [facility] Comment on above: Performed By: #### P T, PTT, AMYL, CMP, LIPA, PHOS ####[place] [address]#### TRANSF ####[place] [phone] Erythrocytes (RBC) 3.96 10*6/uL Low 4.20-6.00 [facility] Comment on above: Performed By: #### P T, PTT, AMYL, CMP, LIPA, PHOS ####[place] [address]#### TRANSF ####[place] [phone] Hematocrit (HCT) 30.7 % Low 39.0-51.0 [facility] Comment on above: Performed By: #### P T, PTT, AMYL, CMP, LIPA, PHOS ####[place] [address]#### TRANSF ####[place] [address] Hemoglobin mass conc (Bld) 10.1 g/dL Low 13.0-17.0 [facility] Comment on above: Performed By: #### P T, PTT, AMYL, CMP, LIPA, PHOS ####[place] [address]#### TRANSF ####[place] [address] [facility] 25.5 pG Low 26.0-34.0 [facility] Comment on above: Performed By: #### P T, PTT, AMYL, CMP, LIPA, PHOS ####[place] [address]#### TRANSF ####[place] [phone] MCHC mass conc (RBC) 32.9 g/dL Normal 30.5-36.0 [facility] Comment on above: Performed By: #### P T, PTT, AMYL, CMP, LIPA, PHOS ####[place] [phone]#### TRANSF ####[place] [phone] MCV 77.5 fL Low 80.0-100.0 [facility] Comment on above: Performed By: #### P T, PTT, AMYL, CMP, LIPA, PHOS ####[place] [phone]#### TRANSF ####[place] [phone] Platelet mean volume (PMV) 9.4 fL Normal 9.0-12.7 [facility] Comment on above: Performed By: #### P T, PTT, AMYL, CMP, LIPA, PHOS ####[address]#### TRANSF ####[place] [phone] Platelets 242 10*3/uL Normal 150-400 [facility] Comment on above: Performed By: #### P T, PTT, AMYL, CMP, LIPA, PHOS ####[place] [address]#### TRANSF ####[place] [phone] WBC (Leukocytes) 7.14 10*3/uL Normal 3.70-11.00 [facility] Comment on above: Performed By: #### P T, PTT, AMYL, CMP, LIPA, PHOS ####[place] [phone]#### TRANSF ####[place] [phone] CBC and Differentialon 09-30 Abs Baso <0.03 Normal <0.11 [facility] Comment on above: Performed By: #### P T, PTT, AMYL, CMP, LIPA, PHOS ####[place] [address]#### TRANSF ####[place] [phone] Abs [place] 0.48 k/uL Normal <0.87 [facility] Comment on above: Performed By: #### P T, PTT, AMYL, CMP, LIPA, PHOS ####[place] [address]#### TRANSF ####[place] [phone] Abs Neut 6.37 k/uL Normal 1.45-7.50 [facility] Comment on above: Performed By: #### P T, PTT, AMYL, CMP, LIPA, PHOS ####[place] [address]#### TRANSF ####[place] [phone] Basophils/100 WBC Auto (Bld) 0.0 % Normal [facility] Comment on above: Performed By: #### P T, PTT, AMYL, CMP, LIPA, PHOS ####[place] [address]#### TRANSF ####[place] [phone] DTYPE Auto Diff Normal [facility] Comment on above: Performed By: #### P T, PTT, AMYL, CMP, LIPA, PHOS ####[place] [address]#### TRANSF ####[place] [phone] Eosinophils 10*3/uL Normal <0.46 [facility] Comment on above: Performed By: #### P T, PTT, AMYL, CMP, LIPA, PHOS ####[place] [address]#### TRANSF ####[place] [phone] Eosinophils/100 leukocytes 0.0 % Normal [facility] Comment on above: Performed By: #### P T, PTT, AMYL, CMP, LIPA, PHOS ####[place] [address]#### TRANSF ####[place] [phone] Erythrocyte distribution width Auto Ratio (RBC) 15.9 % High 11.5-15.0 [facility] Comment on above: Performed By: #### P T, PTT, AMYL, CMP, LIPA, PHOS ####[place] [address]#### TRANSF ####[place] [phone] Erythrocytes (RBC) 3.70 10*6/uL Low 4.20-6.00 [facility] Comment on above: Performed By: #### P T, PTT, AMYL, CMP, LIPA, PHOS ####[place] [address]#### TRANSF ####[place] [phone] Hematocrit (HCT) 28.9 % Low 39.0-51.0 [facility] Comment on above: Performed By: #### P T, PTT, AMYL, CMP, LIPA, PHOS ####[address]#### TRANSF ####[phone] Hemoglobin mass conc (Bld) 9.4 g/dL Low 13.0-17.0 [facility] Comment on above: Performed By: #### P T, PTT, AMYL, CMP, LIPA, PHOS ####[place] [address]#### TRANSF ####[place] [phone] Lymphocytes 1.39 10*3/uL Normal 1.00-4.00 [facility] Comment on above: Performed By: #### P T, PTT, AMYL, CMP, LIPA, PHOS ####[place] [address]#### TRANSF ####[place] [phone] Lymphocytes/100 leukocytes 16.9 % Normal [facility] Comment on above: Performed By: #### P T, PTT, AMYL, CMP, LIPA, PHOS ####[place] [address]#### TRANSF ####[place] [phone] MCH 25.4 pG Low 26.0-34.0 [facility] Comment on above: Performed By: #### P T, PTT, AMYL, CMP, LIPA, PHOS ####[place] [address]#### TRANSF ####[place] [phone] MCHC mass conc (RBC) 32.5 g/dL Normal 30.5-36.0 [facility] Comment on above: Performed By: #### P T, PTT, AMYL, CMP, LIPA, PHOS ####[place] [address]#### TRANSF ####[place] [phone] MCV 78.1 fL Low 80.0-100.0 [facility] Comment on above: Performed By: #### P T, PTT, AMYL, CMP, LIPA, PHOS ####[place] [address]#### TRANSF ####[place] [phone] Monocytes/100 leukocytes 5.8 % Normal [facility] Comment on above: Performed By: #### P T, PTT, AMYL, CMP, LIPA, PHOS ####[place] [address]#### TRANSF ####[place] [phone] Neutrophils/100 WBC Auto (Bld) 77.3 % Normal [facility] Comment on above: Performed By: #### P T, PTT, AMYL, CMP, LIPA, PHOS ####[place] [address]#### TRANSF ####[place] [phone] Platelet mean volume (PMV) 9.7 fL Normal 9.0-12.7 [facility] Comment on above: Performed By: #### P T, PTT, AMYL, CMP, LIPA, PHOS ####[place] [address]#### TRANSF ####[place] [phone] Platelets 231 10*3/uL Normal 150-400 [facility] Comment on above: Performed By: #### P T, PTT, AMYL, CMP, LIPA, PHOS ####[place] [address]#### TRANSF ####[place] [phone] WBC (Leukocytes) 8.24 10*3/uL Normal 3.70-11.00 [facility] Comment on above: Performed By: #### P T, PTT, AMYL, CMP, LIPA, PHOS ####[place] [address]#### TRANSF ####[place] [phone] Comp Metabolic Panelon 09-30 Alanine aminotransferase (ALT) 46 U/L Normal 5-50 [facility] Comment on above: Performed By: #### P T, PTT, AMYL, CMP, LIPA, PHOS ####[place] [address]#### TRANSF ####[place] [phone] Albumin 3.1 g/dL Low 3.5-5.0 [facility] Comment on above: Performed By: #### P T, PTT, AMYL, CMP, LIPA, PHOS ####[place] [address]#### TRANSF ####[place] [phone] Alkaline phosphatase (ALP) 91 U/L Normal 40-150 [facility] Comment on above: Performed By: #### P T, PTT, AMYL, CMP, LIPA, PHOS ####[address]#### TRANSF ####[place] [phone] Anion gap 11 mmol/L Normal 9-18 [facility] Comment on above: Performed By: #### P T, PTT, AMYL, CMP, LIPA, PHOS ####[place] [address]#### TRANSF ####[place] [phone] Aspartate aminotransferase (AST) 48 U/L High 7-40 [facility] Comment on above: Performed By: #### P T, PTT, AMYL, CMP, LIPA, PHOS ####[place] [address]#### TRANSF ####[place] [phone] Bilirubin (total) 0.5 mg/dL Normal 0.0-1.5 [facility] Comment on above: Performed By: #### P T, PTT, AMYL, CMP, LIPA, PHOS ####[place] [address]#### TRANSF ####[place] [phone] Calcium 7.8 mg/dL Low 8.5-10.5 [facility] Comment on above: Performed By: #### P T, PTT, AMYL, CMP, LIPA, PHOS ####[place] [address]#### TRANSF ####[place] [phone] Chloride 105 mmol/L Normal 98-110 [facility] Comment on above: Performed By: #### P T, PTT, AMYL, CMP, LIPA, PHOS ####[place] [address]#### TRANSF ####[place] [phone] CO2 24 mmol/L Normal 23-32 [facility] Comment on above: Performed By: #### P T, PTT, AMYL, CMP, LIPA, PHOS ####[place] [address]#### TRANSF ####[place] [phone] Creatinine 0.65 mg/dL Low 0.70-1.40 [facility] Comment on above: Performed By: #### P T, PTT, AMYL, CMP, LIPA, PHOS ####[place] [address]#### TRANSF ####[place] [phone] eGFR (non-black) mL/min/{1.73_m2} Normal >60 [facility] Comment on above: Performed By: #### P T, PTT, AMYL, CMP, LIPA, PHOS ####[place] [address]#### TRANSF ####[place] [phone] Glucose mass conc 157 mg/dL High 65-100 [facility] Comment on above: Performed By: #### P T, PTT, AMYL, CMP, LIPA, PHOS ####[place] [address]#### TRANSF ####[place] [phone] Potassium molar conc 4.9 mmol/L Normal 3.5-5.0 [facility] Comment on above: Performed By: #### P T, PTT, AMYL, CMP, LIPA, PHOS ####[place] [address]#### TRANSF ####[place] [phone] Protein 5.8 g/dL Low 6.0-8.4 [facility] Comment on above: Performed By: #### P T, PTT, AMYL, CMP, LIPA, PHOS ####[place] [address]#### TRANSF ####[address] Av[address] [place] [phone] Sodium 140 mmol/L Normal 135-146 [facility] Comment on above: Performed By: #### P T, PTT, AMYL, CMP, LIPA, PHOS ####[place] [address]#### TRANSF ####[place] [phone] Urea nitrogen 18 mg/dL Normal 10-25 [facility] Comment on above: Performed By: #### P T, PTT, AMYL, CMP, LIPA, PHOS ####[place] [address]#### TRANSF ####[place] [phone] Fibrinogenon 09-30-2017 Fibrinogen 257 mg/dL Normal 200-400 [facility] Comment on above: Performed By: #### P T, PTT, AMYL, CMP, LIPA, PHOS ####[place] [address]#### TRANSF ####[place] [phone] Lactateon 09-30-2017 Lactate 2.3 mmol/L High 0.4-2.0 [facility] Comment on above: Performed By: #### P T, PTT, AMYL, CMP, LIPA, PHOS ####[place] [address]#### TRANSF ####[place] [phone] NURSING PROGon 09-30-2017 NURSING PROG HNO ID: [id number] thor: Sandrita KenRn) Clayton Guerraice: (none)Author Type: Registered NurseType: Nursing Progress NoteFiled: 09/30/2017 4:15 PMNote Text: Nursing Progress NotePatient Name: Rocio HayesN: [id number] Location: /ME-JAVI-28 ____Daily Note:1043- family updated via pager [id number]- family updated vis pager [id number]- family updated via pager [id number]- family updated via pager [id number]- family updated via pager [id number] Family update via pager [id number] family notified of closure start time. Requested family to return Rajat waiting roomThis note was completed by: Sandrita Guerra RN [facility] NURSING PROG HNO ID: [id number] thor: Kevin Us (Rn) Bhupinder Beltran: (none)Author Type: Registered NurseType: Nursing Progress NoteFiled: 09/30/2017 9:46 AMNote Text: Nursing Progress NotePatient Name: Rocio HayesN: [id number] Location: /BK-CMPT-47 ____ Patient's family updated at 9:44 AM about status of procedure per MD Ainsley.This note was completed by: Kevin Beltran RN [facility] NURSING PROG HNO ID: [id number] thor: Mirian KenRn) MOUSTAPHA Albrechtervice: NursingAuthor Type: [...] degree and side rails up X2. Normal [facility] OPERATIVE NOon 09-30-2017 OPERATIVE NO HNO ID: [id number] thor: Michael Cedillo) KrishnainService: General SurgeryAuthor Type: PhysicianType: Operative ReportFiled: 10/05/2017 7:03 PMNote Text:[facility] - Operative ReportFRISCH, DEANDOB: 1955 AGE: 62 SEX: MMRN: [id number] ACCTNUM: [id number] SVC: INT LOCATION: [id number] PHYSICIAN: Michael Jolley MDDATE OF PROCEDURE: 09/30/2017PREOPERATIVE [...] pleasant 62-year-old male who was initiallyad[facility] to [facility] with intraabdominal abscesses afterhaving undergone a cholecystectomy on hind site. 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 He at the time of that admission [...] time and the end time.GAEL Lomeliept Of SurgeryTA:[id number]:02/2018jhD: 10/02/2017 17:34:33T: 10/03/2017 03:14:36Job #: [id number] [facility] PROCEDUREon 09-30-2017 PROCEDURE HNO ID: [id number] thor: Yrn Cedillo) GonzaloService: Pain ManagementAuthor Type: [...] 30, 2017 : 10:40 AM PAGER/CONTACT #: [id number] [facility] PT EDon 09-30-2017 PT ED HNO ID: [id number] thor: Celina (Rn) MOUSTAPHA Wagnerervice: NursingAuthor Type: Registered NurseType: Patient EducationFiled: 09/30/2017 8:51 AMNote Text:PATIENT EDUCATION TOPIC: PROCEDURE / SURGERY: Pre-op Teaching: SurgicalSafety PrinciplesPATIENT NAME: Rocio TorresdonnyMRN: [id number] LOCATION: [place] [id number] S TO LEARNCOGNITIVE ABILITY: Alert and orientedMOTIVATION TO LEARN: EagerFAMILY SUPPORT: High - Very involved in pt careINSTRUCTION PROVIDED TO: Patient and family memberPATIENT LEARNS BEST BY: Individual InstructionFACTORS AFFECTING LEARNING: NonePHYSICAL LIMITATIONS AFFECTING LEARNING: Other Limitations MEMORY LOSSLEARNING RESPONSEDIAGNOSIS: ADULT: WHIPPLEPATIENT/FAMILY RESPONSE: Verbalizes understanding of: [id number]-Sp rrect action to take to follow pre-operative instructionsMETHOD OF INSTRUCTION: Individual instructionFOLLOW-UP PLAN: Complete - No need for follow-upINSTRUCTIONAL AIDS USED: NASUPPLEMENTAL MATERIAL PROVIDED TO PATIENT: NoneREFERRAL (RECOMMENDATION): NoneElectronically Signed By: Celina Wagner RN Normal [facility] Protimeon 09-30-2017 INR Coag RelTime (Bld) 1.2 {INR} Normal 0.9-1.3 [facility] Comment on above: Result Comment: Tayler min K Antagonist (VKA) Therapeutic Range: INR 2 to 3 (Target INR of 2.5)Note: For patients treated with VKA drugs, such as warfarin, the [employer] 2012 Guideline recommends [...] al. Chest 2012, 141:7S-47SNishimivette RA, et al. [facility] 2017, 70: 252-289 Performed By: #### P T, PTT, AMYL, CMP, LIPA, PHOS ####[place] [address]301 [place], [place] [phone]#### TRANSF ####[address] [phone] PT Sec 12.2 sec Normal 9.7-13.0 [facility] Comment on above: Performed By: #### P T, PTT, AMYL, CMP, LIPA, PHOS ####[address] [phone]#### TRANSF ####[address] [phone] SURGICAL PATHOLOGYon 018 SURGICAL PATHOLOGY [facility]: [id number] Physician: MICHAEL JOLLEY MD FINAL DIAGNOSIS1. Duodenal [...] for malignancy. (Dr. Parker)Intraoperative diagnosis performed at [facility], [address] [place] [address] GROSS DESCRIPTIONA. Received fresh for frozen section [...] cmin greatest dimension. A photograph is taken. Manager Facility sections aresubmitted as follows: D1 perpendicular proximal duodenal margin, E3sfallmbzhhomn distal duodenal margin, D3 pancreatic neck shave [...] minimally attached fibrofatty tissuewhich is grossly unremarkable. Manager Facility sections are submitted asfollows: E1 perpendicular margins, [...] 0.7 cm.Sectioning does not reveal any masses. Manager Facility sections aresubmitted as follows: G1 perpendicular proximal margin, G2 perpendiculardistal margin, G3 pylorus, G4 shave margin mucosal covered tissue withstaple line. BF/glw 10/01/2017 Gross examination performed at [facility], [address] [address] [place] [address] of Report: 10/13/2017Date of Procedure: 09/30/2017Date of Receipt: 09/30/2017Submitted by: TOMS JOLLEY, MDLocation: [id number] interpretation performed at [facility], [address] [facility] [place] [address]. Normal [facility] Comment on above: Performed By: #### P T, PTT, AMYL, CMP, LIPA, PHOS ####[facility] [place] [phone]#### TRANSF ####[place] 3153100 [place] [phone] Wound Culture/Stainon 2017 Wound Culture/Stain Smear Result [...] <=2 FVancomycin SUSCEPTIBLE 1 F Critically abnormal [facility] Comment on above: Performed By: #### P T, PTT, AMYL, CMP, LIPA, PHOS ####[facility] [place] [phone]#### TRANSF ####[facility] [place] [phone] NURSING PROGon 09-25-2017 NURSING PROG HNO ID: [id number] thor: Zaira (Rn) Amanuel, RNService: NeurosurgeryAuthor Type: Registered NurseType: Nursing Progress NoteFiled: 09/29/2017 4:23 PMNote Text:PACC Nurse Progress NoteHistory AND Physical:PACC Visit Date: 2-43-75Vfrbprud HANDP Date: N/AED visit Date: N/AOutside HANDP [...] expected for cardiac optimization by Gerald Freeman, [facility] 2017 8:38 AMADDEND:Cardiac Optimization: Dr. Abreu, letter scanned in [facility] 09-29-17.Chart Check:Zackary Beverly 2017 3:05 PM [facility] 09-24-2017 ALL[facility] HNO ID: [id number] thor: Jennifer Win CtService: (none)Author Type: (none)Type: Allied HealthFiled: 09/24/2017 10:49 AMNote Text: Radiology Service Progress NotePATIENT NAME: Rocio BrianDary: [id number] OF SERVICE: September 24, 2017TIME: 10:48 AMPATIENT IDENTITY VERIFICATION COMPLETED USING TWO (2) METHODS: Patientconfirmed name verbally and ID band matches..PATIENT GENDER DATA: MalePATIENT RELEVANT IMPLANT DATA REVIEWED: Not ApplicableRADIOLOGY DEPARTMENT: CT; Exam(s) Completed: Pancreas and PelvisPERIPHERAL IV DATA: Site assessment: Clean,Dry and Intact, Sitedisposition DiscontinuedSIGNED BY: Jennifer Win CtNewark Hospital 2017 10:48 AM Normal [facility] APTTon 09-24-2017 aPTT 24.9 s Normal 23.0-32.4 [facility] Comment on above: Result Comment: Unfr [...] laboratory APTT reagent in use throughout the [facility]. Performed By: #### P T, PTT, AMYL, CMP, LIPA, PHOS ####[place] [phone]#### TRANSF ####[place] [phone] CA 19-9on 09-24-2017 CA 19-9 15 U/mL Normal <36 [facility] Comment on above: Result Comment: Test analyzed by the BlogGlue DxI method. Performed By: #### P T, PTT, AMYL, CMP, LIPA, PHOS ####[place] [phone]#### TRANSF ####[place] [phone] CBC and Differentialon 09-24 Abs Baso <0.03 Normal <0.11 [facility] Comment on above: Performed By: #### P T, PTT, AMYL, CMP, LIPA, PHOS ####[place] [phone]#### TRANSF ####[place] [phone] Abs [place] 0.57 k/uL Normal <0.87 [facility] Comment on above: Performed By: #### P T, PTT, AMYL, CMP, LIPA, PHOS ####[place] [address]#### TRANSF ####[place] [phone] Abs Neut 3.92 k/uL Normal 1.45-7.50 [facility] Comment on above: Performed By: #### P T, PTT, AMYL, CMP, LIPA, PHOS ####[place] [address]#### TRANSF ####[place] [phone] Basophils/100 WBC Auto (Bld) 0.3 % Normal [facility] Comment on above: Performed By: #### P T, PTT, AMYL, CMP, LIPA, PHOS ####[place] [address]#### TRANSF ####[place] [phone] DTYPE Auto Diff Normal [facility] Comment on above: Performed By: #### P T, PTT, AMYL, CMP, LIPA, PHOS ####[place] [address]#### TRANSF ####[place] [phone] Eosinophils 0.34 10*3/uL Normal <0.46 [facility] Comment on above: Performed By: #### P T, PTT, AMYL, CMP, LIPA, PHOS ####[place] [address]#### TRANSF ####[place] [phone] Eosinophils/100 leukocytes 4.5 % Normal [facility] Comment on above: Performed By: #### P T, PTT, AMYL, CMP, LIPA, PHOS ####[place] [address]#### TRANSF ####[address] [place] [address] Erythrocyte distribution width Auto Ratio (RBC) 16.2 % High 11.5-15.0 [facility] Comment on above: Performed By: #### P T, PTT, AMYL, CMP, LIPA, PHOS ####[place] [address]#### TRANSF ####[address] [place] [address] Erythrocytes (RBC) 10*6/uL Normal <0.01 [facility] Comment on above: Performed By: #### P T, PTT, AMYL, CMP, LIPA, PHOS ####[place] [address]#### TRANSF ####[address] [place] [address] Erythrocytes (RBC) 3.62 10*6/uL Low 4.20-6.00 [facility] Comment on above: Performed By: #### P T, PTT, AMYL, CMP, LIPA, PHOS ####[place] [address]#### TRANSF ####[address] [place] [address] Erythrocytes (RBC) 0.0 /100 WBC Normal 0 [facility] Comment on above: Performed By: #### P T, PTT, AMYL, CMP, LIPA, PHOS ####[place] [address]#### TRANSF ####[address] AvCourtney [place] [phone] Hematocrit (HCT) 29.1 % Low 39.0-51.0 [facility] Comment on above: Performed By: #### P T, PTT, AMYL, CMP, LIPA, PHOS ####[place] [address]#### TRANSF ####[place] [phone] Hemoglobin mass conc (Bld) 8.6 g/dL Low 13.0-17.0 [facility] Comment on above: Performed By: #### P T, PTT, AMYL, CMP, LIPA, PHOS ####[place] [address]#### TRANSF ####[place] [phone] Lymphocytes 2.62 10*3/uL Normal 1.00-4.00 [facility] Comment on above: Performed By: #### P T, PTT, AMYL, CMP, LIPA, PHOS ####[place] [address]#### TRANSF ####[place] [phone] Lymphocytes/100 leukocytes 35.0 % Normal [facility] Comment on above: Performed By: #### P T, PTT, AMYL, CMP, LIPA, PHOS ####[place] [address]#### TRANSF ####[place] [phone] MCH 23.8 pG Low 26.0-34.0 [facility] Comment on above: Performed By: #### P T, PTT, AMYL, CMP, LIPA, PHOS ####[place] [address]#### TRANSF ####[place] [phone] MCHC mass conc (RBC) 29.6 g/dL Low 30.5-36.0 [facility] Comment on above: Performed By: #### P T, PTT, AMYL, CMP, LIPA, PHOS ####[place] [address]#### TRANSF ####[place] [phone] MCV 80.4 fL Normal 80.0-100.0 [facility] Comment on above: Performed By: #### P T, PTT, AMYL, CMP, LIPA, PHOS ####[place] [address]#### TRANSF ####[place] [phone] Monocytes/100 leukocytes 7.6 % Normal [facility] Comment on above: Performed By: #### P T, PTT, AMYL, CMP, LIPA, PHOS ####[place] [address]#### TRANSF ####[place] [phone] Neutrophils/100 WBC Auto (Bld) 52.6 % Normal [facility] Comment on above: Performed By: #### P T, PTT, AMYL, CMP, LIPA, PHOS ####[place] [address]#### TRANSF ####[phone] Platelet mean volume (PMV) 10.9 fL Normal 9.0-12.7 [facility] Comment on above: Performed By: #### P T, PTT, AMYL, CMP, LIPA, PHOS ####[place] [address]#### TRANSF ####[place] [phone] Platelets 354 10*3/uL Normal 150-400 [facility] Comment on above: Performed By: #### P T, PTT, AMYL, CMP, LIPA, PHOS ####[phone]#### TRANSF ####[place] [phone] WBC (Leukocytes) 7.49 10*3/uL Normal 3.70-11.00 [facility] Comment on above: Performed By: #### P T, PTT, AMYL, CMP, LIPA, PHOS ####[place] [phone]#### TRANSF ####[place] [phone] CEAon 09-24-2017 CEA 0.7 ng/mL Normal 0.0-2.9 [facility] Comment on above: Result Comment: Test analyzed by the BlogGlue DxI method. Performed By: #### P T, PTT, AMYL, CMP, LIPA, PHOS ####[place] [phone]#### TRANSF ####[address] [phone] CT PANCREAS/PELVIS W IVCONon 09-24-2017 CT PANCREAS/PELVIS [...] JUAREZ MD on Sep 25 2017 9:02AM [id number] Normal [facility] Comp Metabolic Panelon 09-24 Alanine aminotransferase (ALT) 38 U/L Normal 5-50 [facility] Comment on above: Performed By: #### P T, PTT, AMYL, CMP, LIPA, PHOS ####[place] [address]#### TRANSF ####[place] [phone] Albumin 3.7 g/dL Normal 3.5-5.0 [facility] Comment on above: Performed By: #### P T, PTT, AMYL, CMP, LIPA, PHOS ####[place] [address]#### TRANSF ####[place] [phone] Alkaline phosphatase (ALP) 160 U/L High 40-150 [facility] Comment on above: Performed By: #### P T, PTT, AMYL, CMP, LIPA, PHOS ####[place] [address]#### TRANSF ####[place] [phone] Anion gap 12 mmol/L Normal 9-18 [facility] Comment on above: Performed By: #### P T, PTT, AMYL, CMP, LIPA, PHOS ####[place] [address]#### TRANSF ####[place] [phone] Aspartate aminotransferase (AST) 37 U/L Normal 7-40 [facility] Comment on above: Performed By: #### P T, PTT, AMYL, CMP, LIPA, PHOS ####[place] [address]#### TRANSF ####[place] [phone] Bilirubin (total) 0.3 mg/dL Normal 0.0-1.5 [facility] Comment on above: Performed By: #### P T, PTT, AMYL, CMP, LIPA, PHOS ####[place] [address]#### TRANSF ####[place] [phone] Calcium 9.7 mg/dL Normal 8.5-10.5 [facility] Comment on above: Performed By: #### P T, PTT, AMYL, CMP, LIPA, PHOS ####[place] [address]#### TRANSF ####[place] [address] Chloride 98 mmol/L Normal 98-110 [facility] Comment on above: Performed By: #### P T, PTT, AMYL, CMP, LIPA, PHOS ####[place] [address]#### TRANSF ####[place] [address] CO2 28 mmol/L Normal 23-32 [facility] Comment on above: Performed By: #### P T, PTT, AMYL, CMP, LIPA, PHOS ####[place] [address]#### TRANSF ####[place] [address] Creatinine 0.68 mg/dL Low 0.70-1.40 [facility] Comment on above: Performed By: #### P T, PTT, AMYL, CMP, LIPA, PHOS ####[place] [address]#### TRANSF ####[place] [phone] eGFR (non-black) mL/min/{1.73_m2} Normal >60 [facility] Comment on above: Performed By: #### P T, PTT, AMYL, CMP, LIPA, PHOS ####[place] [address]#### TRANSF ####[place] [phone] Glucose mass conc 110 mg/dL High 65-100 [facility] Comment on above: Performed By: #### P T, PTT, AMYL, CMP, LIPA, PHOS ####[place] [address]#### TRANSF ####[place] [phone] Potassium molar conc 4.7 mmol/L Normal 3.5-5.0 [facility] Comment on above: Performed By: #### P T, PTT, AMYL, CMP, LIPA, PHOS ####[place] [address]#### TRANSF ####[place] [phone] Protein 7.8 g/dL Normal 6.0-8.4 [facility] Comment on above: Performed By: #### P T, PTT, AMYL, CMP, LIPA, PHOS ####[place] [address]#### TRANSF ####[place] [phone] Sodium 138 mmol/L Normal 135-146 [facility] Comment on above: Performed By: #### P T, PTT, AMYL, CMP, LIPA, PHOS ####[place] [address]#### TRANSF ####[place] [phone] Urea nitrogen 13 mg/dL Normal 10-25 [facility] Comment on above: Performed By: #### P T, PTT, AMYL, CMP, LIPA, PHOS ####[facility] [place], [place] [phone]#### TRANSF ####[facility] [place], [place] [phone] NURSING PROGon 09-24-2017 NURSING PROG HNO ID: [id number] thor: Nayeli Humphries (Rn) MOUSTAPHA Pelletierervice: RadiologyAuthor Type: Registered NurseType: Nursing Progress NoteFiled: 09/24/2017 10:26 AMNote Text: Radiology Service Progress NotePATIENT NAME: Rocio Boudreaux: [id number] OF SERVICE: September 24, 2017TIME: 10:25 AMPATIENT WEIGHT: 184 LBSPATIENT IDENTITY VERIFICATION COMPLETED USING TWO (2) METHODS: Patientconfirmed name verbally and Date of .PATIENT GENDER DATA: MaleCONTRAST INDUCED NEPHROPATHY RISK FACTORS: Patient age > 60 years,Diabetic: Yes. Current medication(s): Metformin. Patient currently hasinsulin pump?: No. and Home going recommendation given YesCREATININE:CreatinineDate Value Ref Range Cxfgvw2809/01/2017 0.54 (L) 0.70 - 1.40 mg/dL Final08/31/2017 0.56 (L) 0.70 - 1.40 mg/dL Final08/30/2017 0.59 (L) 0.70 - 1.40 mg/dL Final eGFR-All Other RacesDate Value Ref Range Eegwlz8409/01/2017 >60 >60 . Final eGFR- AmericanDate Value Ref Range Kbmzcg4209/01/2017 >60 >60 Final P.O.C.T. RESULTS: N/A September 24, 2017TREATMENT: No Hydration needed.ALLERGIES: Reviewed and unchangedCONTRAST ALLERGY: NO.IV SITE: Ambulatory: A peripheral IV was started in the Right forearmwith a diffusic cath: 20 gauge. A Saline lock was inserted per protocol.IV SITE APPEARANCE: Clean,Dry and IntactSIGNED BY: Nayeli Pelletier RNNewark [facility] 2017 10:25 AM Normal [facility] Protimeon 09-24-2017 INR Coag RelTime (Bld) 1.1 {INR} Normal 0.9-1.3 [facility] Comment on above: Result Comment: Tayler min K Antagonist (VKA) Therapeutic Range: INR 2 to 3 (Target INR of 2.5)Note: For patients treated with VKA drugs, such as warfarin, the [employer] 2012 Guideline recommends [...] al. Chest 2012, 141:7S-47SNishneto RA, et al. [facility] 2017, 70: 252-289 Performed By: #### P T, PTT, AMYL, CMP, LIPA, PHOS ####[phone]#### TRANSF ####[place] [phone] PT Sec 11.1 sec Normal 9.7-13.0 [facility] Comment on above: Performed By: #### P T, PTT, AMYL, CMP, LIPA, PHOS ####[phone]#### TRANSF ####[place] [phone] Type and SCR (30D)on 018 ABO/RH(D) Positive Normal [facility] Comment on above: Performed By: #### P T, PTT, AMYL, CMP, LIPA, PHOS ####[phone]#### TRANSF ####[facility] [place], [place] [phone] Antibody Screen Negative Normal [facility] Comment on above: Performed By: #### P T, PTT, AMYL, CMP, LIPA, PHOS ####[facility] [place], [place] [phone]#### TRANSF ####[facility] [place], [place] [phone] HOSPon 09-16-2017 HOSP Patient:Jason Jackson RN: Height:5' [...] 3.5HEMA* 29.1 % 09/24/2017 51.0 39.0Progress Notes ([facility] [address]):Michael Jolley MD 09/27/2017 12:29 PM SignedSURGERY PREOPERATIVE VISIT NOTEName: Rocio JacksonMedical Record: [id number] No.: [id number] Frisch is a 62 year old male [...] Date- ANGIOPLASTY HX 05/15/2011 2 stents s/p [place];[facility]- CHOLECYSTECTOMY 08/11/2017 [facility]- PICC LINE INSERT/CONSULT 08/16/2017SOCIAL HISTORY:Social HistorySubstance Use [...] Patient understands risk of medical complicationsincluding pneumonia, [place], UTI and . Patient expressed understanding andconsented to the surgery.The patient had an opportunity to ask additional questions that were answered.The patient expressed that they understood.A consent form was signed today.Prescriptions were explained and provided to the patient.Magalys Alvarez RNPrevious VersionProgress Notes ([facility]):Magalys Alvarez RN 09/23/2017 5:01 PM SignedPatient is scheduled for [place] on 09/30/[address] Jolley.09/16/2017 Cardiac Clearance request faxed to patient position classification specialist for riskstratification and recommendations for Eliquis and AsaCall to office today to check status of request. Nurse unavailable. Awaitingreturn call from nurse.Dr. Irving CastellanosGeorge Ville [phone] [address] [id number] fx Magalys Alvarez RN 09/24/2017 1:48 PM SignedReceived return call from [facility].Patient is pending a stress test on 09/28/2017. Dr. Abreu's office will sendcardiac stratification letter after testing completed.Per Dr. Jolley, patient is to hold Eliquis and Asa (last dose 09/23/2017). Normal [facility] MANAGEM HNO ID: [id number] thor: Alexandrea (Rn) Thom, RNService: Care ManagementAuthor Type: Registered NurseType: Care Mgt Progress NoteFiled: 09/01/2017 11:42 AMNote Text:CARE MANAGEMENT DISCHARGE NOTESERVICE DATE: 09/01/2017SERVICE TIME: 11:02 AM LOS: 19 daysAdmission Date: 08/13/2017DISCHARGE ARRANGEMENT (list agency and phone number)MCFP facilityProvider: [facility] TEOVPQTXX ASSESSMENT:Caregiver is ready, willing and able to meet the patient's needs asrecommended by the inter-professional team? YesPatient's transition needs and plan for meeting these needs: SNFDoes the patient have an acute stroke diagnosis, or has the patient had astroke during this admission? NoHANDOFF COMMUNICATION:SNFTRANSPORTAT ION ARRANGEMENTS:Car Sisters will drive pt to the SNFADDITIONAL CONTACT RESOURCES: nonePlan is for dc today to [facility] in [place].The pt and his sisters have verbalized agreement with this plan.SIGNATURE: Alexandrea Tomas RN PATIENT NAME: Rocio JacksonDATE: September 01, 2017 : 11:02 AM PAGER/CONTACT #: [phone] Normal [facility] CBC and Differentialon 09-01 Abs Baso <0.03 Normal <0.11 [facility] Comment on above: Performed By: #### P T, PTT, AMYL, CMP, LIPA, PHOS ####[place] [phone]#### TRANSF ####[facility] [address] [place] [phone] Abs [place] 0.44 k/uL Normal <0.87 [facility] Comment on above: Performed By: #### P T, PTT, AMYL, CMP, LIPA, PHOS ####[place] [phone]#### TRANSF ####[place] [phone] [phone] Abs Neut 2.43 k/uL Normal 1.45-7.50 [facility] Comment on above: Performed By: #### P T, PTT, AMYL, CMP, LIPA, PHOS ####[place] [address]#### TRANSF ####[place] [address] [place] AvKrist[place] [phone] Basophils/100 WBC Auto (Bld) 0.4 % Normal [facility] Comment on above: Performed By: #### P T, PTT, AMYL, CMP, LIPA, PHOS ####[place] [address]#### TRANSF ####[place] [phone] DTYPE Auto Diff Normal [facility] Comment on above: Performed By: #### P T, PTT, AMYL, CMP, LIPA, PHOS ####[place] [address]#### TRANSF ####[place] [phone] Eosinophils 0.26 10*3/uL Normal <0.46 [facility] Comment on above: Performed By: #### P T, PTT, AMYL, CMP, LIPA, PHOS ####[place] [address]#### TRANSF ####[place] [phone] Eosinophils/100 leukocytes 5.3 % Normal [facility] Comment on above: Performed By: #### P T, PTT, AMYL, CMP, LIPA, PHOS ####[place] [address]#### TRANSF ####[address] AvDavid V[place] [phone] Erythrocyte distribution width Auto Ratio (RBC) 15.3 % High 11.5-15.0 [facility] Comment on above: Performed By: #### P T, PTT, AMYL, CMP, LIPA, PHOS ####[place] [address]#### TRANSF ####[place] [phone] Erythrocytes (RBC) 2.93 10*6/uL Low 4.20-6.00 [facility] Comment on above: Performed By: #### P T, PTT, AMYL, CMP, LIPA, PHOS ####[place] [address]#### TRANSF ####[place] [address] Hematocrit (HCT) 25.0 % Low 39.0-51.0 [facility] Comment on above: Performed By: #### P T, PTT, AMYL, CMP, LIPA, PHOS ####[place] [address]#### TRANSF ####[place] [address] Hemoglobin mass conc (Bld) 7.9 g/dL Low 13.0-17.0 [facility] Comment on above: Performed By: #### P T, PTT, AMYL, CMP, LIPA, PHOS ####[place] [address]#### TRANSF ####[place] [address] Lymphocytes 1.72 10*3/uL Normal 1.00-4.00 [facility] Comment on above: Performed By: #### P T, PTT, AMYL, CMP, LIPA, PHOS ####[place] [address]#### TRANSF ####[place] [phone] Lymphocytes/100 leukocytes 35.3 % Normal [facility] Comment on above: Performed By: #### P T, PTT, AMYL, CMP, LIPA, PHOS ####[place] [address]#### TRANSF ####[place] [phone] MCH 27.0 pG Normal 26.0-34.0 [facility] Comment on above: Performed By: #### P T, PTT, AMYL, CMP, LIPA, PHOS ####[place] [address]#### TRANSF ####[place] [phone] MCHC mass conc (RBC) 31.6 g/dL Normal 30.5-36.0 [facility] Comment on above: Performed By: #### P T, PTT, AMYL, CMP, LIPA, PHOS ####[place] [address]#### TRANSF ####[place] [phone] MCV 85.3 fL Normal 80.0-100.0 [facility] Comment on above: Performed By: #### P T, PTT, AMYL, CMP, LIPA, PHOS ####[place] [address]#### TRANSF ####[place] [phone] Monocytes/100 leukocytes 9.0 % Normal [facility] Comment on above: Performed By: #### P T, PTT, AMYL, CMP, LIPA, PHOS ####[place] [address]#### TRANSF ####[place] [address] [place] AvCourtney [place] [phone] Neutrophils/100 WBC Auto (Bld) 50.0 % Normal [facility] Comment on above: Performed By: #### P T, PTT, AMYL, CMP, LIPA, PHOS ####[address]#### TRANSF ####[address] AvCourtney Ville [phone] Platelet mean volume (PMV) 9.7 fL Normal 9.0-12.7 [facility] Comment on above: Performed By: #### P T, PTT, AMYL, CMP, LIPA, PHOS ####[place] [address]#### TRANSF ####[place] [phone] Platelets 495 10*3/uL High 150-400 [facility] Comment on above: Performed By: #### P T, PTT, AMYL, CMP, LIPA, PHOS ####[place] [address]#### TRANSF ####[place] [phone] WBC (Leukocytes) 4.87 10*3/uL Normal 3.70-11.00 [facility] Comment on above: Performed By: #### P T, PTT, AMYL, CMP, LIPA, PHOS ####[address]#### TRANSF ####[place] [phone] CNDSon 09-01-2017 CNDS HNO ID: [id number] thor: Allegra Garcia) MiglionicoService: ColorectalAuthor Type: Physician AssistantType: Discharge SummariesFiled: 09/02/2017 11:51 AMNote Text:DISCHARGE SUMMARYPATIENT NAME: Rocio A Ventura ADMISSION DATE: 08/13/2017MRN: [id number] DISCHARGE DATE: 09/01/2017ATTENDING PHYSICIAN: Michael Rockwell FOR [...] Cardiology, GastroenterologyPATIENT CONDITION AT DISCHARGE: StableDISCHARGE DISPOSITION: Chcf FacilityINFORMATION PROVIDED TO PATIENT:Instructions for My Care at Home or Healthcare FacilityThese instructions explain what you or your healthcare or medical need to do tocontinue your care at home or at another healthcare facility? Please go over these instructions with your nurse and healthcare or medical.? If you are not sure about something, [...] 02, 2017 : 11:13 AM PAGER/CONTACT #: [phone] [facility] CONSULT PROGon 09-01-2017 CONSULT PROG HNO ID: [id number] thor: Jessee Lottervice: Cardiovascular DiseaseAuthor Type: PhysicianType: [...] for for bleeding issuesadvise f/u with primary position classification specialist as out ptAll questions answered.Subjective:Doing well no [...] Date- ANGIOPLASTY HX 05/15/2011 2 stents s/p [place];[facility]- CHOLECYSTECTOMY 08/11/2017 [facility]- PICC LINE INSERT/CONSULT 08/16/2017Prior to Admission Medications:No [...] acting) (HumaLOG) SUBCUTANEOUS w [place]ALS[place] HSphenol 1 [place] (CHLORASEPTIC) [address] [place] MUCOUS MEMBRANE (TOPICAL MOUTH ANDTHROAT) q 2 [...] Date: September 01, 2017Time: 10:00 AM Normal [facility] Comp Metabolic Panelon 09-01 Alanine aminotransferase (ALT) 74 U/L High 5-50 [facility] Comment on above: Performed By: #### P T, PTT, AMYL, CMP, LIPA, PHOS ####[place] [address]#### TRANSF ####[place] [phone] Albumin 2.9 g/dL Low 3.5-5.0 [facility] Comment on above: Performed By: #### P T, PTT, AMYL, CMP, LIPA, PHOS ####[place] [address]#### TRANSF ####[place] [phone] Alkaline phosphatase (ALP) 490 U/L High 40-150 [facility] Comment on above: Performed By: #### P T, PTT, AMYL, CMP, LIPA, PHOS ####[place] [address]#### TRANSF ####[place] [phone] Anion gap 7 mmol/L Low 9-18 [facility] Comment on above: Performed By: #### P T, PTT, AMYL, CMP, LIPA, PHOS ####[place] [address]#### TRANSF ####[place] [phone] Aspartate aminotransferase (AST) 93 U/L High 7-40 [facility] Comment on above: Performed By: #### P T, PTT, AMYL, CMP, LIPA, PHOS ####[place] [address]#### TRANSF ####[place] [phone] Bilirubin (total) 0.4 mg/dL Normal 0.0-1.5 [facility] Comment on above: Performed By: #### P T, PTT, AMYL, CMP, LIPA, PHOS ####[place] [address]#### TRANSF ####[place] [phone] Calcium 8.0 mg/dL Low 8.5-10.5 [facility] Comment on above: Performed By: #### P T, PTT, AMYL, CMP, LIPA, PHOS ####[place] [address]#### TRANSF ####[place] [phone] Chloride 101 mmol/L Normal 98-110 [facility] Comment on above: Performed By: #### P T, PTT, AMYL, CMP, LIPA, PHOS ####[place] [address]#### TRANSF ####[place] [phone] CO2 29 mmol/L Normal 23-32 [facility] Comment on above: Performed By: #### P T, PTT, AMYL, CMP, LIPA, PHOS ####[place] [address]#### TRANSF ####[place] [phone] Creatinine 0.54 mg/dL Low 0.70-1.40 [facility] Comment on above: Performed By: #### P T, PTT, AMYL, CMP, LIPA, PHOS ####[place] [address]#### TRANSF ####[place] [phone] eGFR (non-black) mL/min/{1.73_m2} Normal >60 [facility] Comment on above: Performed By: #### P T, PTT, AMYL, CMP, LIPA, PHOS ####[address]#### TRANSF ####[place] [phone] Glucose mass conc 149 mg/dL High 65-100 [facility] Comment on above: Performed By: #### P T, PTT, AMYL, CMP, LIPA, PHOS ####[place] [address]#### TRANSF ####[place] [phone] Potassium molar conc 4.3 mmol/L Normal 3.5-5.0 [facility] Comment on above: Performed By: #### P T, PTT, AMYL, CMP, LIPA, PHOS ####[place] [address]#### TRANSF ####[place] [phone] Protein 6.6 g/dL Normal 6.0-8.4 [facility] Comment on above: Performed By: #### P T, PTT, AMYL, CMP, LIPA, PHOS ####[place] [address]#### TRANSF ####[place] [phone] Sodium 137 mmol/L Normal 135-146 [facility] Comment on above: Performed By: #### P T, PTT, AMYL, CMP, LIPA, PHOS ####[place] [address]#### TRANSF ####[place] [address] Urea nitrogen 11 mg/dL Normal 10-25 [facility] Comment on above: Performed By: #### P T, PTT, AMYL, CMP, LIPA, PHOS ####[place] [address]#### TRANSF ####[place] [address] Magnesiumon 09-01-2017 Magnesium 2.3 mg/dL Normal 1.7-2.6 [facility] Comment on above: Performed By: #### P T, PTT, AMYL, CMP, LIPA, PHOS ####[place] [address]#### TRANSF ####[place] [address] NURSING PROGon 09-01-2017 NURSING PROG HNO ID: [id number] thor: Sabrina (Rn) Ever, MOUSTAPHAervice: (none)Author Type: Registered NurseType: Nursing Progress NoteFiled: 09/01/2017 11:54 AMNote Text: Nursing Progress NotePatient Name: Rocio TorresdonnyMRN: [id number] [address]: [address][id number] ____Daily Note:1153- Surgery López fisher in room PK336. Went to flush biliary drainand large amount of output started draining from site. Also does patientneed phosphate prior to d/c? Thanks! -mary ellen #[id number] Awaiting further orders.This note was completed by: Sabrina Curtis RN [facility] PLAN OF CAREon 09-01-2017 PLAN OF CARE HNO ID: [id number] thor: Miriam Britt (Drill Press Operator Numerical Control)Service: (none)Author Type: TechnicianType: Plan of CareFiled: 09/02/2017 12:34 PMNote Text:PRESS BUCKER BEDSIDE DELIVERY SURVEY1. Patient to use [facility] Bedside Delivery - N/A2. If fax, patient would like us to fax prescriptions to [facility]. Pharmacy: b. Location: c. Phone:3. Insurance card on file - N/A4. Credit card for payment - N/A [facility] PROGRESSon 09-01-2017 PROGRESS HNO ID: [id number] thor: Kayleen (Res) BenliceService: General SurgeryAuthor Type: ResidentType: Progress NotesFiled: 09/01/2017 7:46 AMNote Text:PROGRESS NOTES - SURGICAL SERVICESPATIENT NAME: Rocio JacksonN: [id number] HISTORY OF PRESENT ILLNESS:Resting well. No acute [...] PICC line prior to discharge-DC today, [facility] or to SNFSIGNATURE: Kayleen Gonzales MDDATE: September 01, 2017TIME: 7:46 AM Normal [facility] Phosphoruson 09-01-2017 Phosphate 2.0 mg/dL Low 2.5-4.5 [facility] Comment on above: Performed By: #### P T, PTT, AMYL, CMP, LIPA, PHOS ####[facility] [place], [place] [phone]#### TRANSF ####[facility] [place], [place] [phone] ALLIED HEALTHon 08-31-2017 ALLIED HEALTH HNO ID: [id number] thor: Lauren Fernandez) Nicholase: Spiritual CareAuthor Type: ChaplainType: Allied HealthFiled: 08/31/2017 11:01 AMNote Text:SPIRITUAL CARE PROGRESS NOTESERVICE DATE: 08/31/2017SERVICE TIME: 10:15 [facility] provided spiritual care visit with patient per request forSpiritual Care consultation. Patient was present in the room with 2family members. I provided active listening and introduction of ourservices as needed.Patient was introduced to the resources offered through Spiritual Care andHealing Services, and informed of the availability of a cardiac monitor shouldfurther needs arise. There were no further needs at this time.To contact the Spiritual Care Department: Please call [phone], place aSpiritual Care Consult (or page the cardiac monitor on-call at [phone] foremergent needs).SIGNATURE: Chaplain [place] PATIENT NAME: Rocio JacksonDATE: August 31, 2017 : 10:59 AM PAGER/CONTACT #: [phone] [facility] CASE MANAGEMon 08-31-2017 CASE MANAGEM HNO ID: [id number] thor: Alexandrea Tomas, RNService: Care ManagementAuthor Type: Registered NurseType: Care Mgt Progress NoteFiled: 08/31/2017 2:12 PMNote Text:CARE MANAGEMENT PROGRESS NOTESERVICE DATE: 08/31/2017SERVICE TIME: 12:14 PM LOS: 18 daysNeeds Prior to Discharge: To Be DeterminedThis CM met with Pt and his sisters at bedside.Per Pt and his sisters, the [place] [facility] [place].Medical Clearance is needed.Per discussion with SAIMA Briggs, the plan is for dc tomorrow,SIGNATURE: Alexandrea Tomas RN PATIENT NAME: Rocio JacksonDATE: August 31, 2017 : 12:12 PM PAGER/CONTACT #: [phone] [facility] CBC and Differentialon 08-31 Abs Baso <0.03 Normal <0.11 [facility] Comment on above: Performed By: #### P T, PTT, AMYL, CMP, LIPA, PHOS ####[place] [address]#### TRANSF ####[place] [phone] Abs [place] 0.30 k/uL Normal <0.87 [facility] Comment on above: Performed By: #### P T, PTT, AMYL, CMP, LIPA, PHOS ####[place] [address]#### TRANSF ####[place] [phone] Abs Neut 2.32 k/uL Normal 1.45-7.50 [facility] Comment on above: Performed By: #### P T, PTT, AMYL, CMP, LIPA, PHOS ####[place] [address]#### TRANSF ####[place] [address] Basophils/100 WBC Auto (Bld) 0.5 % Normal [facility] Comment on above: Performed By: #### P T, PTT, AMYL, CMP, LIPA, PHOS ####[place] [address]#### TRANSF ####[place] [phone] DTYPE Auto Diff Normal [facility] Comment on above: Performed By: #### P T, PTT, AMYL, CMP, LIPA, PHOS ####[place] [address]#### TRANSF ####[place] [phone] Eosinophils 0.23 10*3/uL Normal <0.46 [facility] Comment on above: Performed By: #### P T, PTT, AMYL, CMP, LIPA, PHOS ####[place] [address]#### TRANSF ####[place] [phone] Eosinophils/100 leukocytes 5.2 % Normal [facility] Comment on above: Performed By: #### P T, PTT, AMYL, CMP, LIPA, PHOS ####[place] [address]#### TRANSF ####[place] [phone] Erythrocyte distribution width Auto Ratio (RBC) 15.2 % High 11.5-15.0 [facility] Comment on above: Performed By: #### P T, PTT, AMYL, CMP, LIPA, PHOS ####[place] [address]#### TRANSF ####[place] [phone] Erythrocytes (RBC) 2.94 10*6/uL Low 4.20-6.00 [facility] Comment on above: Performed By: #### P T, PTT, AMYL, CMP, LIPA, PHOS ####[place] [address]#### TRANSF ####[place] [phone] Hematocrit (HCT) 25.1 % Low 39.0-51.0 [facility] Comment on above: Performed By: #### P T, PTT, AMYL, CMP, LIPA, PHOS ####[place] [address]#### TRANSF ####[address] AvKristin Ville [phone] Hemoglobin mass conc (Bld) 8.0 g/dL Low 13.0-17.0 [facility] Comment on above: Performed By: #### P T, PTT, AMYL, CMP, LIPA, PHOS ####[address]#### TRANSF ####[place] [phone] Lymphocytes 1.56 10*3/uL Normal 1.00-4.00 [facility] Comment on above: Performed By: #### P T, PTT, AMYL, CMP, LIPA, PHOS ####[place] [address]#### TRANSF ####[place] [phone] Lymphocytes/100 leukocytes 35.2 % Normal [facility] Comment on above: Performed By: #### P T, PTT, AMYL, CMP, LIPA, PHOS ####[place] [address]#### TRANSF ####[place] [phone] MCH 27.2 pG Normal 26.0-34.0 [facility] Comment on above: Performed By: #### P T, PTT, AMYL, CMP, LIPA, PHOS ####[place] [address]#### TRANSF ####[place] [phone] MCHC mass conc (RBC) 31.9 g/dL Normal 30.5-36.0 [facility] Comment on above: Performed By: #### P T, PTT, AMYL, CMP, LIPA, PHOS ####[address]#### TRANSF ####[place] [phone] MCV 85.4 fL Normal 80.0-100.0 [facility] Comment on above: Performed By: #### P T, PTT, AMYL, CMP, LIPA, PHOS ####[place] [address]#### TRANSF ####[place] [phone] Monocytes/100 leukocytes 6.8 % Normal [facility] Comment on above: Performed By: #### P T, PTT, AMYL, CMP, LIPA, PHOS ####[place] [address]#### TRANSF ####[place] [phone] Neutrophils/100 WBC Auto (Bld) 52.3 % Normal [facility] Comment on above: Performed By: #### P T, PTT, AMYL, CMP, LIPA, PHOS ####[place] [address]#### TRANSF ####[place] [phone] Platelet mean volume (PMV) 9.3 fL Normal 9.0-12.7 [facility] Comment on above: Performed By: #### P T, PTT, AMYL, CMP, LIPA, PHOS ####[place] [address]#### TRANSF ####[place] [phone] Platelets 470 10*3/uL High 150-400 [facility] Comment on above: Performed By: #### P T, PTT, AMYL, CMP, LIPA, PHOS ####[place] [address]#### TRANSF ####[place] [phone] WBC (Leukocytes) 4.43 10*3/uL Normal 3.70-11.00 [facility] Comment on above: Performed By: #### P T, PTT, AMYL, CMP, LIPA, PHOS ####[place] 237596[address]71[address]#### TRANSF ####[place] [phone] Comp Metabolic Panelon 08-31 Alanine aminotransferase (ALT) 55 U/L High 5-50 [facility] Comment on above: Performed By: #### P T, PTT, AMYL, CMP, LIPA, PHOS ####[place] 237596[address]71[address]#### TRANSF ####[place] [phone] Albumin 2.8 g/dL Low 3.5-5.0 [facility] Comment on above: Performed By: #### P T, PTT, AMYL, CMP, LIPA, PHOS ####[place] 237596[address]71[address]#### TRANSF ####[phone] Alkaline phosphatase (ALP) 475 U/L High 40-150 [facility] Comment on above: Performed By: #### P T, PTT, AMYL, CMP, LIPA, PHOS ####[place] 237596[address]7110#### TRANSF ####[place] [phone] Anion gap 7 mmol/L Low 9-18 [facility] Comment on above: Performed By: #### P T, PTT, AMYL, CMP, LIPA, PHOS ####[place] 237596-7110#### TRANSF ####[place] [phone] Aspartate aminotransferase (AST) 59 U/L High 7-40 [facility] Comment on above: Performed By: #### P T, PTT, AMYL, CMP, LIPA, PHOS ####[place] [address]#### TRANSF ####[place] [phone] Bilirubin (total) 0.4 mg/dL Normal 0.0-1.5 [facility] Comment on above: Performed By: #### P T, PTT, AMYL, CMP, LIPA, PHOS ####[place] [address]#### TRANSF ####[place] [phone] Calcium 7.9 mg/dL Low 8.5-10.5 [facility] Comment on above: Performed By: #### P T, PTT, AMYL, CMP, LIPA, PHOS ####[place] [address]#### TRANSF ####[place] [phone] Chloride 102 mmol/L Normal 98-110 [facility] Comment on above: Performed By: #### P T, PTT, AMYL, CMP, LIPA, PHOS ####[place] [address]#### TRANSF ####[place] [phone] CO2 29 mmol/L Normal 23-32 [facility] Comment on above: Performed By: #### P T, PTT, AMYL, CMP, LIPA, PHOS ####[place] [address]#### TRANSF ####[phone] Creatinine 0.56 mg/dL Low 0.70-1.40 [facility] Comment on above: Performed By: #### P T, PTT, AMYL, CMP, LIPA, PHOS ####[place] [address]#### TRANSF ####[place] [phone] eGFR (non-black) mL/min/{1.73_m2} Normal >60 [facility] Comment on above: Performed By: #### P T, PTT, AMYL, CMP, LIPA, PHOS ####[address]#### TRANSF ####[place] [phone] Glucose mass conc 165 mg/dL High 65-100 [facility] Comment on above: Performed By: #### P T, PTT, AMYL, CMP, LIPA, PHOS ####[place] [address]#### TRANSF ####[place] [phone] Potassium molar conc 4.4 mmol/L Normal 3.5-5.0 [facility] Comment on above: Performed By: #### P T, PTT, AMYL, CMP, LIPA, PHOS ####[address]#### TRANSF ####[place] [phone] Protein 6.4 g/dL Normal 6.0-8.4 [facility] Comment on above: Performed By: #### P T, PTT, AMYL, CMP, LIPA, PHOS ####[place] [address]#### TRANSF ####[place] [phone] Sodium 138 mmol/L Normal 135-146 [facility] Comment on above: Performed By: #### P T, PTT, AMYL, CMP, LIPA, PHOS ####[place] [address]#### TRANSF ####[place] [phone] Urea nitrogen 10 mg/dL Normal 10-25 [facility] Comment on above: Performed By: #### P T, PTT, AMYL, CMP, LIPA, PHOS ####[place] [address]#### TRANSF ####[place] [phone] Magnesiumon 08-31-2017 Magnesium 2.3 mg/dL Normal 1.7-2.6 [facility] Comment on above: Performed By: #### P T, PTT, AMYL, CMP, LIPA, PHOS ####[place] [address]#### TRANSF ####[place] [phone] PLAN OF CAREon 08-31-2017 PLAN OF CARE HNO ID: [id number] thor: Miriam Britt ([employer]ical Control)Service: (none)Author Type: TechnicianType: Plan of CareFiled: 08/31/2017 2:26 PMNote Text:[employer] BU[employer]ER BEDSIDE DELIVERY SURVEY1. Patient to use [facility] Bedside Delivery - N/A2. If fax, patient would like us to fax prescriptions to [facility]. Pharmacy: b. Location: c. Phone:3. Insurance card on file - N/A4. Credit card for payment - N/A Normal [facility] PLAN OF CARE HNO ID: [id number] thor: Macie Cruz (Pharmacist)Service: PharmacyAuthor Type: PharmacistType: Plan of CareFiled: 08/31/2017 9:28 AMNote Text:DISCHARGE MEDICATION REVIEW BY PHARMACYPatient Name: Rocio Jackson : [id number] Admission Date: 08/13/2017Date of Contact: August 31, 2017 Time of Contact: 9:28 AMMedication list was reviewed by a Pharmacist for drug interactions or drugrelated problems:[facility]:28 AMMedication ListSTART taking these [...] IR 5 mg immediate release tablet Normal [facility] PROGRESSon 08-31-2017 PROGRESS HNO ID: [id number] thor: Michael Cedillo) AugustinService: General SurgeryAuthor Type: PhysicianType: Progress NotesFiled: 08/31/2017 7:00 PMNote Text:PROGRESS NOTES - SURGICAL SERVICESPATIENT NAME: Rocio JacksonMRN: [id number] HISTORY OF PRESENT ILLNESS:Resting well. No acute [...] discharge planningToms MD Froilan, MPH, FACSGeneral/Trauma/HPB SurgeryPager: [phone] Cell: [phone] 2017 Normal [facility] Phosphoruson 08-31-2017 Phosphate 2.1 mg/dL Low 2.5-4.5 [facility] Comment on above: Performed By: #### P T, PTT, AMYL, CMP, LIPA, PHOS ####[facility] [place] [phone]#### TRANSF ####[facility] [address] [place] [phone] THERAPY NTon 08-31-2017 THERAPY NT HNO ID: [id number] thor: Adela (Spiral Weaver) Jhonatane: Physical TherapyAuthor Type: Physical Therapy AssistantType: Therapy (PT/OT/Speech/Resp)Filed: 08/31/2017 3:24 PMNote Text: -Attestation signed by Tonia Schmitz at 08/31/2017 3:44 PMI reviewed and agree with the documentation corresponding to this therapyvisit.SIGNATURE: Tonia Schmitz, PTDATE: August 31, 2017TIME: 3:44 PM Ph ysical Therapy TreatmentSERVICE DATE: 08/31/2017SERVICE TIME: 1350 to 1415ROOM: [facility] ( [facility])Recommended Discharge Disposition: Subacute/SNFRecommended Discharge [...] on feet;Difficulty walking-musculoskeletalInter ventions Provided: Therapeutic Exercise (07408);Gait Training (08478)Therapeutic Exercise (98175) Treatment Minutes: 101 unitSkilled Intervention(s): Instruction in therapeutic exercise for B LEstrengtheningVerbal and tactile cuing provided for pace and performanceGait Training (89661) Treatment Minutes: 151 unitSkilled Intervention(s): Instruction in [...] 31, 2017 : 3:22 PM PAGER/CONTACT #: [phone] Normal [facility] Basic Metabolic Panlon 08-30 Anion gap 10 mmol/L Normal -18 [facility] Comment on above: Performed By: #### P T, PTT, AMYL, CMP, LIPA, PHOS ####[place] [address]#### TRANSF ####[phone] Calcium 8.1 mg/dL Low 8.5-10.5 [facility] Comment on above: Performed By: #### P T, PTT, AMYL, CMP, LIPA, PHOS ####[place] [address]#### TRANSF ####[place] [id number] [phone] Chloride 102 mmol/L Normal 98-110 [facility] Comment on above: Performed By: #### P T, PTT, AMYL, CMP, LIPA, PHOS ####[place] 237596[address]#### TRANSF ####[place] [address] CO2 27 mmol/L Normal 23-32 [facility] Comment on above: Performed By: #### P T, PTT, AMYL, CMP, LIPA, PHOS ####[place] [address]#### TRANSF ####[place] [phone] Creatinine 0.59 mg/dL Low 0.70-1.40 [facility] Comment on above: Performed By: #### P T, PTT, AMYL, CMP, LIPA, PHOS ####[place] [address]#### TRANSF ####[place] [phone] eGFR (non-black) mL/min/{1.73_m2} Normal >60 [facility] Comment on above: Performed By: #### P T, PTT, AMYL, CMP, LIPA, PHOS ####[place] [address]#### TRANSF ####[place] [phone] Glucose mass conc 133 mg/dL High 65-100 [facility] Comment on above: Performed By: #### P T, PTT, AMYL, CMP, LIPA, PHOS ####[place] [address]#### TRANSF ####[place] [phone] Potassium molar conc 4.4 mmol/L Normal 3.5-5.0 [facility] Comment on above: Performed By: #### P T, PTT, AMYL, CMP, LIPA, PHOS ####[place] [address]#### TRANSF ####[place] [phone] Sodium 139 mmol/L Normal 135-146 [facility] Comment on above: Performed By: #### P T, PTT, AMYL, CMP, LIPA, PHOS ####[place] [address]#### TRANSF ####[place] [phone] Urea nitrogen 9 mg/dL Low 10-25 [facility] Comment on above: Performed By: #### P T, PTT, AMYL, CMP, LIPA, PHOS ####[place] [address]#### TRANSF ####[place] [phone] CBC and Differentialon 08-30 Abs Baso <0.03 Normal <0.11 [facility] Comment on above: Performed By: #### P T, PTT, AMYL, CMP, LIPA, PHOS ####[place] [address]#### TRANSF ####[place] [phone] Abs [place] 0.42 k/uL Normal <0.87 [facility] Comment on above: Performed By: #### P T, PTT, AMYL, CMP, LIPA, PHOS ####[place] [address]#### TRANSF ####[place] [phone] Abs Neut 2.87 k/uL Normal 1.45-7.50 [facility] Comment on above: Performed By: #### P T, PTT, AMYL, CMP, LIPA, PHOS ####[place] [address]#### TRANSF ####[place] [address] [place] [address] Basophils/100 WBC Auto (Bld) 0.4 % Normal [facility] Comment on above: Performed By: #### P T, PTT, AMYL, CMP, LIPA, PHOS ####[place] [address]#### TRANSF ####[place] [phone] DTYPE Auto Diff Normal [facility] Comment on above: Performed By: #### P T, PTT, AMYL, CMP, LIPA, PHOS ####[place] [address]#### TRANSF ####[place] [phone] Eosinophils 0.18 10*3/uL Normal <0.46 [facility] Comment on above: Performed By: #### P T, PTT, AMYL, CMP, LIPA, PHOS ####[place] [address]#### TRANSF ####[place] [phone] Eosinophils/100 leukocytes 3.7 % Normal [facility] Comment on above: Performed By: #### P T, PTT, AMYL, CMP, LIPA, PHOS ####[place] [address]#### TRANSF ####[place] [phone] Erythrocyte distribution width Auto Ratio (RBC) 15.4 % High 11.5-15.0 [facility] Comment on above: Performed By: #### P T, PTT, AMYL, CMP, LIPA, PHOS ####[place] [address]#### TRANSF ####[place] [phone] Erythrocytes (RBC) 2.91 10*6/uL Low 4.20-6.00 [facility] Comment on above: Performed By: #### P T, PTT, AMYL, CMP, LIPA, PHOS ####[address]#### TRANSF ####[place] [phone] Hematocrit (HCT) 24.9 % Low 39.0-51.0 [facility] Comment on above: Performed By: #### P T, PTT, AMYL, CMP, LIPA, PHOS ####[place] [address]#### TRANSF ####[place] [phone] Hemoglobin mass conc (Bld) 7.9 g/dL Low 13.0-17.0 [facility] Comment on above: Performed By: #### P T, PTT, AMYL, CMP, LIPA, PHOS ####[place] [address]#### TRANSF ####[place] [phone] Lymphocytes 1.44 10*3/uL Normal 1.00-4.00 [facility] Comment on above: Performed By: #### P T, PTT, AMYL, CMP, LIPA, PHOS ####[address]#### TRANSF ####[place] [phone] Lymphocytes/100 leukocytes 29.2 % Normal [facility] Comment on above: Performed By: #### P T, PTT, AMYL, CMP, LIPA, PHOS ####[place] [phone]#### TRANSF ####[place] [phone] MCH 27.1 pG Normal 26.0-34.0 [facility] Comment on above: Performed By: #### P T, PTT, AMYL, CMP, LIPA, PHOS ####[place] [address]#### TRANSF ####[place] [phone] MCHC mass conc (RBC) 31.7 g/dL Normal 30.5-36.0 [facility] Comment on above: Performed By: #### P T, PTT, AMYL, CMP, LIPA, PHOS ####[place] [address]#### TRANSF ####[place] [phone] MCV 85.6 fL Normal 80.0-100.0 [facility] Comment on above: Performed By: #### P T, PTT, AMYL, CMP, LIPA, PHOS ####[place] [address]#### TRANSF ####[place] [phone] Monocytes/100 leukocytes 8.5 % Normal [facility] Comment on above: Performed By: #### P T, PTT, AMYL, CMP, LIPA, PHOS ####[address]#### TRANSF ####[place] [phone] Neutrophils/100 WBC Auto (Bld) 58.2 % Normal [facility] Comment on above: Performed By: #### P T, PTT, AMYL, CMP, LIPA, PHOS ####[place] 237596[address]#### TRANSF ####[place] [phone] Platelet mean volume (PMV) 9.4 fL Normal 9.0-12.7 [facility] Comment on above: Performed By: #### P T, PTT, AMYL, CMP, LIPA, PHOS ####[address]#### TRANSF ####[phone] Platelets 505 10*3/uL High 150-400 [facility] Comment on above: Performed By: #### P T, PTT, AMYL, CMP, LIPA, PHOS ####[address]#### TRANSF ####[place] [phone] WBC (Leukocytes) 4.93 10*3/uL Normal 3.70-11.00 [facility] Comment on above: Performed By: #### P T, PTT, AMYL, CMP, LIPA, PHOS ####[address]#### TRANSF ####[place] [phone] Hepatic Functn Panelon 08-30 Alanine aminotransferase (ALT) 34 U/L Normal 5-50 [facility] Comment on above: Performed By: #### P T, PTT, AMYL, CMP, LIPA, PHOS ####[place] [address]#### TRANSF ####[place] [phone] Albumin 3.0 g/dL Low 3.5-5.0 [facility] Comment on above: Performed By: #### P T, PTT, AMYL, CMP, LIPA, PHOS ####[place] [address]#### TRANSF ####[phone] Alkaline phosphatase (ALP) 480 U/L High 40-150 [facility] Comment on above: Performed By: #### P T, PTT, AMYL, CMP, LIPA, PHOS ####[place] [address]#### TRANSF ####[place] [phone] Aspartate aminotransferase (AST) 41 U/L High 7-40 [facility] Comment on above: Performed By: #### P T, PTT, AMYL, CMP, LIPA, PHOS ####[place] [address]#### TRANSF ####[place] [phone] Bilirubin (total) 0.5 mg/dL Normal 0.0-1.5 [facility] Comment on above: Performed By: #### P T, PTT, AMYL, CMP, LIPA, PHOS ####[place] [address]#### TRANSF ####[place] [phone] Bilirubin,Conjugated <0.2 Normal 0.0-0.4 [facility] Comment on above: Performed By: #### P T, PTT, AMYL, CMP, LIPA, PHOS ####[place] [address]#### TRANSF ####[phone] Protein 6.6 g/dL Normal 6.0-8.4 [facility] Comment on above: Performed By: #### P T, PTT, AMYL, CMP, LIPA, PHOS ####[facility] [place], [place] [phone]#### TRANSF ####[facility] [place], [place] [phone] Magnesiumon 08-30-2017 Magnesium 2.3 mg/dL Normal 1.7-2.6 [facility] Comment on above: Performed By: #### P T, PTT, AMYL, CMP, LIPA, PHOS ####[facility] [place], [place] [phone]#### TRANSF ####[place] [address] [place], [place] [phone] PROGRESSon 08-30-2017 PROGRESS HNO ID: [id number] thor: Michael Cedillo) AugustinService: General SurgeryAuthor Type: PhysicianType: Progress NotesFiled: 08/30/2017 10:38 AMNote Text: SURGERY INPATIENT PROGRESS NOTESName: Rocio Boudreaux: [id number] and Plan:62 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 Doing well.-Continue fulls with supplements-Capped PTHC, no increased drainage from other drains-Will follow up CMP-No Abx-No [place]-VTE Prophylaxis: enoxaparin, SCDs-Routine surgical care: IS, OOB- Will remove PICC line prior to discharge-Anticipate DC early next week, with [facility] or to SNFS: Resting well. [...] acting) (HumaLOG) SUBCUTANEOUS w [place] HSphenol 1 [place] (CHLORASEPTIC) [address] [place] MUCOUS MEMBRANE (TOPICAL MOUTH ANDTHROAT) q 2 [...] kg (192 lb) SpO2 99% BMI 29.19 kg/k1Aygoju/Output Summary (Last 24 hours) at 08/30/17 0850Last [...] scant clear drainage.Serena Trent, MDPGY -1 [facility] SurgeryNew[facility] 20178:50 AMSTANNEKA NOTEI have independently seen and examined the patient today. I haveindependently reviewed all the imaging and the labs. I agree with keycomponents of the resident's note above. Care plan and decision making hasbeen discussed.PTC was capped, J-P continues to be serous, patient tolerated PTC cappingwithout any issuesAppropriate by mouth intakeDischarge planningToms MD Froilan, MPH, FACSGeneral/Trauma/HPB SurgeryPager: [phone] Cell: [phone] 2017 Normal [facility] Phosphoruson 08-30-2017 Phosphate 2.8 mg/dL Normal 2.5-4.5 [facility] Comment on above: Performed By: #### P T, PTT, AMYL, CMP, LIPA, PHOS ####[place] [phone]#### TRANSF ####[place] [phone] Basic Metabolic Panlon 08-29 Anion gap 10 mmol/L Normal 9-18 [facility] Comment on above: Performed By: #### P T, PTT, AMYL, CMP, LIPA, PHOS ####[address] [phone]#### TRANSF ####[place] [address] [place], [place] [phone] Calcium 8.4 mg/dL Low 8.5-10.5 [facility] Comment on above: Performed By: #### P T, PTT, AMYL, CMP, LIPA, PHOS ####[place] [address]#### TRANSF ####[place] [phone] Chloride 103 mmol/L Normal 98-110 [facility] Comment on above: Performed By: #### P T, PTT, AMYL, CMP, LIPA, PHOS ####[place] [address]#### TRANSF ####[place] [address] CO2 26 mmol/L Normal 23-32 [facility] Comment on above: Performed By: #### P T, PTT, AMYL, CMP, LIPA, PHOS ####[place] [address]#### TRANSF ####[place] [phone] Creatinine 0.66 mg/dL Low 0.70-1.40 [facility] Comment on above: Performed By: #### P T, PTT, AMYL, CMP, LIPA, PHOS ####[place] [address]#### TRANSF ####[place] [address] eGFR (non-black) mL/min/{1.73_m2} Normal >60 [facility] Comment on above: Performed By: #### P T, PTT, AMYL, CMP, LIPA, PHOS ####[place] [address]#### TRANSF ####[place] [phone] Glucose mass conc 118 mg/dL High 65-100 [facility] Comment on above: Performed By: #### P T, PTT, AMYL, CMP, LIPA, PHOS ####[place] [address]#### TRANSF ####[address] [place] [phone] Potassium molar conc 4.3 mmol/L Normal 3.5-5.0 [facility] Comment on above: Performed By: #### P T, PTT, AMYL, CMP, LIPA, PHOS ####[place] [address]#### TRANSF ####[place] [phone] Sodium 139 mmol/L Normal 135-146 [facility] Comment on above: Performed By: #### P T, PTT, AMYL, CMP, LIPA, PHOS ####[place] [address]#### TRANSF ####[place] [phone] Urea nitrogen 10 mg/dL Normal 10-25 [facility] Comment on above: Performed By: #### P T, PTT, AMYL, CMP, LIPA, PHOS ####[place] [address]#### TRANSF ####[place] [phone] CBC and Differentialon 08-29 Abs Baso <0.03 Normal <0.11 [facility] Comment on above: Performed By: #### P T, PTT, AMYL, CMP, LIPA, PHOS ####[place] [address]#### TRANSF ####[address] [place] [phone] Abs [place] 0.43 k/uL Normal <0.87 [facility] Comment on above: Performed By: #### P T, PTT, AMYL, CMP, LIPA, PHOS ####[place] [address]#### TRANSF ####[address] [place] [phone] Abs Neut 2.71 k/uL Normal 1.45-7.50 [facility] Comment on above: Performed By: #### P T, PTT, AMYL, CMP, LIPA, PHOS ####[place] [address]#### TRANSF ####[place] [address] [place] [phone] Basophils/100 WBC Auto (Bld) 0.4 % [facility] Comment on above: Performed By: #### P T, PTT, AMYL, CMP, LIPA, PHOS ####[place] [address]#### TRANSF ####[place] [phone] DTYPE Auto Diff [facility] Comment on above: Performed By: #### P T, PTT, AMYL, CMP, LIPA, PHOS ####[place] [address]#### TRANSF ####[place] [phone] Eosinophils 0.15 10*3/uL Normal <0.46 [facility] Comment on above: Performed By: #### P T, PTT, AMYL, CMP, LIPA, PHOS ####[place] [address]#### TRANSF ####[place] [phone] Eosinophils/100 leukocytes 3.2 % Normal [facility] Comment on above: Performed By: #### P T, PTT, AMYL, CMP, LIPA, PHOS ####[place] [address]#### TRANSF ####[place] [phone] Erythrocyte distribution width Auto Ratio (RBC) 15.1 % High 11.5-15.0 [facility] Comment on above: Performed By: #### P T, PTT, AMYL, CMP, LIPA, PHOS ####[place] [address]#### TRANSF ####[place] [address] Erythrocytes (RBC) 2.98 10*6/uL Low 4.20-6.00 [facility] Comment on above: Performed By: #### P T, PTT, AMYL, CMP, LIPA, PHOS ####[place] [address]#### TRANSF ####[place] [address] Hematocrit (HCT) 26.1 % Low 39.0-51.0 [facility] Comment on above: Performed By: #### P T, PTT, AMYL, CMP, LIPA, PHOS ####[place] [address]#### TRANSF ####[place] [phone] Hemoglobin mass conc (Bld) 8.1 g/dL Low 13.0-17.0 [facility] Comment on above: Performed By: #### P T, PTT, AMYL, CMP, LIPA, PHOS ####[place] [address]#### TRANSF ####[place] [address] Lymphocytes 1.44 10*3/uL Normal 1.00-4.00 [facility] Comment on above: Performed By: #### P T, PTT, AMYL, CMP, LIPA, PHOS ####[place] [address]#### TRANSF ####[place] [address] Lymphocytes/100 leukocytes 30.3 % Normal [facility] Comment on above: Performed By: #### P T, PTT, AMYL, CMP, LIPA, PHOS ####[place] [address]#### TRANSF ####[place] [address] MCH 27.2 pG Normal 26.0-34.0 [facility] Comment on above: Performed By: #### P T, PTT, AMYL, CMP, LIPA, PHOS ####[place] [address]#### TRANSF ####[place] [address] MCHC mass conc (RBC) 31.0 g/dL Normal 30.5-36.0 [facility] Comment on above: Performed By: #### P T, PTT, AMYL, CMP, LIPA, PHOS ####[place] [address]#### TRANSF ####[place] [phone] MCV 87.6 fL Normal 80.0-100.0 [facility] Comment on above: Performed By: #### P T, PTT, AMYL, CMP, LIPA, PHOS ####[place] [address]#### TRANSF ####[address] [place] [phone] Monocytes/100 leukocytes 9.1 % Normal [facility] Comment on above: Performed By: #### P T, PTT, AMYL, CMP, LIPA, PHOS ####[address]#### TRANSF ####[place] [phone] Neutrophils/100 WBC Auto (Bld) 57.0 % Normal [facility] Comment on above: Performed By: #### P T, PTT, AMYL, CMP, LIPA, PHOS ####[place] [address]#### TRANSF ####[place] [phone] Platelet mean volume (PMV) 9.5 fL Normal 9.0-12.7 [facility] Comment on above: Performed By: #### P T, PTT, AMYL, CMP, LIPA, PHOS ####[place] [address]#### TRANSF ####[place] [phone] Platelets 508 10*3/uL High 150-400 [facility] Comment on above: Performed By: #### P T, PTT, AMYL, CMP, LIPA, PHOS ####[address]#### TRANSF ####[place] [phone] WBC (Leukocytes) 4.75 10*3/uL Normal 3.70-11.00 [facility] Comment on above: Performed By: #### P T, PTT, AMYL, CMP, LIPA, PHOS ####[place] [address]#### TRANSF ####[facility] [place], [place] [phone] Magnesiumon 08-29-2017 Magnesium 2.2 mg/dL Normal 1.7-2.6 [facility] Comment on above: Performed By: #### P T, PTT, AMYL, CMP, LIPA, PHOS ####[facility] [place], [place] [phone]#### TRANSF ####[facility] [place], [place] [phone] NURSING PROGon 08-29-2017 NURSING PROG HNO ID: [id number] thor: Saima Kramer (Rn) Debra, RNService: (none)Author Type: Registered NurseType: Nursing Progress NoteFiled: 08/29/2017 4:09 PMNote Text: Nursing Progress NotePatient Name: Rocio JacksonMRN: [id number] Location: [place] [address]/[id number] ____Daily Note:Pt sitting in bed and upon [...] was completed by: Saima Richardson RN [facility] PROGRESSon 08-29-2017 PROGRESS HNO ID: [id number] thor: Michael Cedillo) AugustinService: General SurgeryAuthor Type: PhysicianType: Progress NotesFiled: 08/29/2017 11:10 AMNote Text: SURGERY INPATIENT PROGRESS NOTESName: Rocio JacksonPETRONA: [id number] and Plan:62 year old male with duodenal [...] 5,000 Units SUBCUTANEOUS q 8 Hphenol 1 [place] (CHLORASEPTIC) [address] [place] MUCOUS MEMBRANE (TOPICAL MOUTH ANDTHROAT) q 2 [...] kg (192 lb) SpO2 97% BMI 29.19 kg/b8Bjtfda/Output Summary (Last 24 hours) at 08/29/17 0737Last [...] cap PTC.Michael Jolley MD, MPH, FACSGeneral/Trauma/HPB SurgeryPager: [phone] Cell: [phone] 2017 Normal [facility] Phosphoruson 08-29-2017 Phosphate 2.6 mg/dL Normal 2.5-4.5 [facility] Comment on above: Performed By: #### P T, PTT, AMYL, CMP, LIPA, PHOS ####[address] [phone]#### TRANSF ####[facility] [address] [place], [place] [phone] Basic Metabolic Panlon 08-28 Anion gap 10 mmol/L Normal 9-18 [facility] Comment on above: Performed By: #### P T, PTT, AMYL, CMP, LIPA, PHOS ####[address] [phone]#### TRANSF ####[place] [address] [place] [phone] Calcium 8.8 mg/dL Normal 8.5-10.5 [facility] Comment on above: Performed By: #### P T, PTT, AMYL, CMP, LIPA, PHOS ####[place] [address]#### TRANSF ####[place] [phone] Chloride 102 mmol/L Normal 98-110 [facility] Comment on above: Performed By: #### P T, PTT, AMYL, CMP, LIPA, PHOS ####[place] [address]#### TRANSF ####[place] [phone] CO2 26 mmol/L Normal 23-32 [facility] Comment on above: Performed By: #### P T, PTT, AMYL, CMP, LIPA, PHOS ####[place] [address]#### TRANSF ####[place] [phone] Creatinine 0.71 mg/dL Normal 0.70-1.40 [facility] Comment on above: Performed By: #### P T, PTT, AMYL, CMP, LIPA, PHOS ####[place] [address]#### TRANSF ####[place] [address] eGFR (non-black) mL/min/{1.73_m2} Normal >60 [facility] Comment on above: Performed By: #### P T, PTT, AMYL, CMP, LIPA, PHOS ####[phone]#### TRANSF ####[place] [phone] Glucose mass conc 138 mg/dL High 65-100 [facility] Comment on above: Performed By: #### P T, PTT, AMYL, CMP, LIPA, PHOS ####[place] [address]#### TRANSF ####[place] [phone] Potassium molar conc 4.5 mmol/L Normal 3.5-5.0 [facility] Comment on above: Performed By: #### P T, PTT, AMYL, CMP, LIPA, PHOS ####[place] [address]#### TRANSF ####[place] [phone] Sodium 138 mmol/L Normal 135-146 [facility] Comment on above: Performed By: #### P T, PTT, AMYL, CMP, LIPA, PHOS ####[place] [address]#### TRANSF ####[place] [phone] Urea nitrogen 9 mg/dL Low 10-25 [facility] Comment on above: Performed By: #### P T, PTT, AMYL, CMP, LIPA, PHOS ####[place] [address]#### TRANSF ####[place] [phone] CASE MANAGEMon 08-28-2017 CASE MANAGEM HNO ID: [id number] thor: Alexandrea Tomas, RNService: Care ManagementAuthor Type: Registered NurseType: Care Mgt Progress NoteFiled: 08/28/2017 2:51 PMNote Text:CARE MANAGEMENT PROGRESS NOTESERVICE DATE: 08/28/2017SERVICE TIME: 2:48 PM LOS: 15 daysNeeds Prior to Discharge: To Be Determined Medical Clearance needed.GI Soft Diet.Pt Remains with int and ext bliliary drain.Plan is for SNF vs HHC when medically cleared,per [facility] SNF in [facility] notification is needed (not precert)CM remains available to assist with skilled dc needs.SIGNATURE: Alexandrea Tomas RN PATIENT NAME: Rocio JacksonDATE: August 28, 2017 : 2:47 PM PAGER/CONTACT #: [phone] Normal [facility] CBC and Differentialon 08-28 Abs Baso <0.03 Normal <0.11 [facility] Comment on above: Performed By: #### P T, PTT, AMYL, CMP, LIPA, PHOS ####[place] [address]#### TRANSF ####[place] [phone] Abs [place] 0.43 k/uL Normal <0.87 [facility] Comment on above: Performed By: #### P T, PTT, AMYL, CMP, LIPA, PHOS ####[place] [address]#### TRANSF ####[place] [phone] Abs Neut 3.60 k/uL Normal 1.45-7.50 [facility] Comment on above: Performed By: #### P T, PTT, AMYL, CMP, LIPA, PHOS ####[place] [address]#### TRANSF ####[place] [phone] Basophils/100 WBC Auto (Bld) 0.3 % Normal [facility] Comment on above: Performed By: #### P T, PTT, AMYL, CMP, LIPA, PHOS ####[place] [address]#### TRANSF ####[place] [phone] DTYPE Auto Diff Normal [facility] Comment on above: Performed By: #### P T, PTT, AMYL, CMP, LIPA, PHOS ####[place] [address]#### TRANSF ####[place] [phone] Eosinophils 0.17 10*3/uL Normal <0.46 [facility] Comment on above: Performed By: #### P T, PTT, AMYL, CMP, LIPA, PHOS ####[place] [address]#### TRANSF ####[place] [phone] Eosinophils/100 leukocytes 3.0 % Normal [facility] Comment on above: Performed By: #### P T, PTT, AMYL, CMP, LIPA, PHOS ####[place] [address]#### TRANSF ####[place] [phone] Erythrocyte distribution width Auto Ratio (RBC) 15.5 % High 11.5-15.0 [facility] Comment on above: Performed By: #### P T, PTT, AMYL, CMP, LIPA, PHOS ####[place] [address]#### TRANSF ####[place] [phone] Erythrocytes (RBC) 3.08 10*6/uL Low 4.20-6.00 [facility] Comment on above: Performed By: #### P T, PTT, AMYL, CMP, LIPA, PHOS ####[place] [address]#### TRANSF ####[place] [phone] Hematocrit (HCT) 26.4 % Low 39.0-51.0 [facility] Comment on above: Performed By: #### P T, PTT, AMYL, CMP, LIPA, PHOS ####[place] [address]#### TRANSF ####[place] [phone] Hemoglobin mass conc (Bld) 8.4 g/dL Low 13.0-17.0 [facility] Comment on above: Performed By: #### P T, PTT, AMYL, CMP, LIPA, PHOS ####[place] [address]#### TRANSF ####[place] [phone] Lymphocytes 1.50 10*3/uL Normal 1.00-4.00 [facility] Comment on above: Performed By: #### P T, PTT, AMYL, CMP, LIPA, PHOS ####[place] [address]#### TRANSF ####[place] [phone] Lymphocytes/100 leukocytes 26.2 % Normal [facility] Comment on above: Performed By: #### P T, PTT, AMYL, CMP, LIPA, PHOS ####[place] [address]#### TRANSF ####[place] [phone] MCH 27.3 pG Normal 26.0-34.0 [facility] Comment on above: Performed By: #### P T, PTT, AMYL, CMP, LIPA, PHOS ####[place] [address]#### TRANSF ####[phone] MCHC mass conc (RBC) 31.8 g/dL Normal 30.5-36.0 [facility] Comment on above: Performed By: #### P T, PTT, AMYL, CMP, LIPA, PHOS ####[place] [address]#### TRANSF ####[place] [phone] MCV 85.7 fL Normal 80.0-100.0 [facility] Comment on above: Performed By: #### P T, PTT, AMYL, CMP, LIPA, PHOS ####[place] [address]#### TRANSF ####[place] [phone] Monocytes/100 leukocytes 7.5 % Normal [facility] Comment on above: Performed By: #### P T, PTT, AMYL, CMP, LIPA, PHOS ####[place] [address]#### TRANSF ####[place] [phone] Neutrophils/100 WBC Auto (Bld) 63.0 % Normal [facility] Comment on above: Performed By: #### P T, PTT, AMYL, CMP, LIPA, PHOS ####[place] [address]#### TRANSF ####[place] [phone] Platelet mean volume (PMV) 9.7 fL Normal 9.0-12.7 [facility] Comment on above: Performed By: #### P T, PTT, AMYL, CMP, LIPA, PHOS ####[place] [address]#### TRANSF ####[place] [phone] Platelets 518 10*3/uL High 150-400 [facility] Comment on above: Performed By: #### P T, PTT, AMYL, CMP, LIPA, PHOS ####[address]#### TRANSF ####[place] [phone] WBC (Leukocytes) 5.72 10*3/uL Normal 3.70-11.00 [facility] Comment on above: Performed By: #### P T, PTT, AMYL, CMP, LIPA, PHOS ####[place] [address]#### TRANSF ####[place] [phone] Magnesiumon 08-28-2017 Magnesium 2.2 mg/dL Normal 1.7-2.6 [facility] Comment on above: Performed By: #### P T, PTT, AMYL, CMP, LIPA, PHOS ####[address]#### TRANSF ####[place] [phone] NURSING PROGon 08-28-2017 NURSING PROG HNO ID: [id number] thor: Pramod (Rn) MOUSTAPHA Mckennaervice: (none)Author Type: Registered NurseType: Nursing Progress NoteFiled: 08/28/2017 5:07 PMNote Text: Nursing Progress NotePatient Name: Rocio JacksonN: [id number] Location: [place] [address]/CI-UI4G-[id number] ____Daily Note: 08/28/17 0840 (late entry)- Patient [...] was completed by: Pramod Mckenna RN [facility] PROGRESSon 08-28-2017 PROGRESS HNO ID: [id number] thor: Michael Cedillo) AugustinService: General SurgeryAuthor Type: PhysicianType: Progress NotesFiled: 08/28/2017 11:12 AMNote Text:PROGRESS NOTES - SURGICAL SERVICESPATIENT NAME: Rocio Boudraeux: [id number] HISTORY OF PRESENT ILLNESS:No acute events overnight. [...] dietDC planningToms Froilan MD, MPH, FACSGeneral/Trauma/HPB SurgeryPager: [phone] Cell: [phone] 2017 [facility] PT EDon 08-28-2017 PT ED HNO ID: [id number] thor: Yohana (Diet-T) AdrianService: Nutrition TherapyAuthor Type: Dietetic TechnicianType: Patient EducationFiled: 08/28/2017 1:24 PMNote Text:NUTRITION PATIENT EDUCATIONTOPIC: Survival Skills: DietPATIENT NAME: Rocio BrianDary: [id number] DATE: August 28, 2017Diagnosis: ADULT: Duodenal ObstructionREADINESS [...] Type: Routine Care/15 min 2 triston Mackey-tPager: [phone] [phone] PM Normal [facility] Phosphoruson 08-28-2017 Phosphate 3.4 mg/dL Normal 2.5-4.5 [facility] Comment on above: Performed By: #### P T, PTT, AMYL, CMP, LIPA, PHOS ####[facility] [place], [place] [phone]#### TRANSF ####[facility] [address] [place], [place] [phone] THERAPY NTon 08-28-2017 THERAPY NT HNO ID: [id number] thor: Saima Miranda (Cota)ervice: Occupational TherapyAuthor Type: Occupational Therapy AssistantType: Therapy (PT/OT/Speech/Resp)Filed: 08/28/2017 3:09 PMNote Text: -Attestation signed by Nolvia Reilly at 08/28/2017 3:48 PMI reviewed and agree with the documentation corresponding to this therapyvisit.SIGNATURE: WENDY Cade/LDATE: August 28, 2017TIME: 3:48 PM Oc cupational Therapy TreatmentSERVICE DATE: 08/28/2017SERVICE TIME: 1420 to 1500ROOM: -FM2Y-62 ( OPERATING ROOM)Recommended Discharge Disposition: Subacute/SNFRecommended Discharge Disposition Comments: (Pt hopes to continue therapyin SNF in [place])Anticipated Discharge Needs: Supervision at HomePhysical Assist at Home for:Cleaning;Laundry;Meals;S hopping;Transportation;Ambul ationSupervision at Home due to: Other: See Comment (recent surgery)Recommended Discharge Equipment: Elastic Shoe Laces;Grab Bars-Shower;HandHeld Shower;Long Handled Shoe Horn;Long Handled Sponge;WheeledWalker;Director Phone ;Sock Aide;Shower ChairOT Recommendations to Nursing: OOB [...] Diagnosis: Reduced mobility-otherInterventions Provided: Self Half-Way Management (06347);TherapeuticActivity (29611)Therapeutic Activity (60010) Treatment Minutes: 101 unitSkilled Intervention(s): Instructed patient in log roll techniqueInstruction in sit to and from stand technique with proper hand placementand body positioning at edge of bed/chairInstruction of safe transport of items from room to room with use of bagon the ww.Self Half-Way Management (54519) Treatment Minutes: 302 unitsSkilled Intervention(s): Provided instruction, cuing and facilitation forlower body dressing .Instructed pt on use of hatch boss to zee/doff pants, underwear, shoes inorder to [...] August 28, 2017 : 3:04 PM PAGER: [phone] [facility] THERAPY NT HNO ID: [id number] thor: Saima Miranda (Cota)ervice: Occupational TherapyAuthor Type: Occupational Therapy AssistantType: Therapy (PT/OT/Speech/Resp)Filed: 08/28/2017 12:27 PMNote Text: -Attestation signed by Nolvia Gamez) Logar at 08/28/2017 1:15 PMI reviewed and agree with the documentation corresponding to this therapyvisit.SIGNATURE: WENDY Cade/LDATE: August 28, 2017TIME: 1:15 PM OC CUPATIONAL THERAPY MISSED VISITSERVICE DATE: 08/28/2017SERVICE TIME: 1148 to 1148ROOM: [place] [address] ( OPERATING ROOM)Attempted Treatment. Patient not seen due to Eating.Will attempt again asschedule permits.SIGNATURE: TRACY Dumont PATIENT NAME: Rocio JacksonDATE: August 28, 2017 : 12:27 PM PAGER/CONTACT #:[phone] [facility] BRIEF OP NOTon 08-27-2017 BRIEF OP NOT HNO ID: [id number] thor: Juan AgueroService: RadiologyAuthor Type: PhysicianType: Brief Op NoteFiled: 08/27/2017 11:09 AMNote Text:OPERATIVE/PROCEDURE REPORTLOG ID: [id number]/Procedure Date: 08/19/2017Incision/Procedure Start Time:Incision Close/Procedure End Time:Surgeon(s)/Proceduralis t(s) and Solar Field Service Technician(s):Surgeon(s) and Role: * Vanessa Finley Additional StaffProcedure(s):Patient [...] 27, 2017 : 11:02 AM PAGER/CONTACT #: [phone] Normal [facility] Basic Metabolic Panlon 08-27 Anion gap 9 mmol/L Normal 9-18 [facility] Comment on above: Performed By: #### P T, PTT, AMYL, CMP, LIPA, PHOS ####[place] [address]#### TRANSF ####[place] [address] [place] [phone] Calcium 8.5 mg/dL Normal 8.5-10.5 [facility] Comment on above: Performed By: #### P T, PTT, AMYL, CMP, LIPA, PHOS ####[place] [address]#### TRANSF ####[place] [address] [address] [place] [phone] Chloride 102 mmol/L Normal 98-110 [facility] Comment on above: Performed By: #### P T, PTT, AMYL, CMP, LIPA, PHOS ####[place] [address]#### TRANSF ####[place] [address] [address] [place] [phone] CO2 27 mmol/L Normal 23-32 [facility] Comment on above: Performed By: #### P T, PTT, AMYL, CMP, LIPA, PHOS ####[address]#### TRANSF ####[place] [phone] Creatinine 0.66 mg/dL Low 0.70-1.40 [facility] Comment on above: Performed By: #### P T, PTT, AMYL, CMP, LIPA, PHOS ####[place] [address]#### TRANSF ####[place] [phone] eGFR (non-black) mL/min/{1.73_m2} Normal >60 [facility] Comment on above: Performed By: #### P T, PTT, AMYL, CMP, LIPA, PHOS ####[address]#### TRANSF ####[place] [phone] Glucose mass conc 105 mg/dL High 65-100 [facility] Comment on above: Performed By: #### P T, PTT, AMYL, CMP, LIPA, PHOS ####[place] [address]#### TRANSF ####[place] [phone] Potassium molar conc 4.4 mmol/L Normal 3.5-5.0 [facility] Comment on above: Performed By: #### P T, PTT, AMYL, CMP, LIPA, PHOS ####[address]#### TRANSF ####[place] [phone] Sodium 138 mmol/L Normal 135-146 [facility] Comment on above: Performed By: #### P T, PTT, AMYL, CMP, LIPA, PHOS ####[place] [phone] [place] [address]6816[address]#### TRANSF ####[place] 3153100 [place] [phone] Urea nitrogen 11 mg/dL Normal 10-25 [facility] Comment on above: Performed By: #### P T, PTT, AMYL, CMP, LIPA, PHOS ####[place] [address]#### TRANSF ####[place] 3153100 [place] [phone] CASE MANAGEMon 08-27-2017 CASE MANAGEM HNO ID: [id number] thor: Catherine Humphries (Rn) Leeann, RNService: Case ManagementAuthor Type: Registered NurseType: Care Mgt Progress NoteFiled: 08/27/2017 4:26 PMNote Text:CARE MANAGEMENT PROGRESS NOTESERVICE DATE: 08/27/2017SERVICE TIME: 4:15 pm LOS: 14 daysMet with patient and sister Briana at bedside. Due to patient's currentclinical status, and the fact that he is single and lives alone, thepatient has elected to pursue placement at [facility] in [facility]. Updates sent to [facility] SNF. will continue to followplan of care to assist with discharge planning.SIGNATURE: Catherine Bradshaw RN PATIENT NAME: Rocio JacksonDATE: August 27, 2017 : 4:18 PM PAGER/CONTACT #: [phone] Normal [facility] CBC and Differentialon 08-27 Abs Baso 0.03 k/uL Normal <0.11 [facility] Comment on above: Performed By: #### P T, PTT, AMYL, CMP, LIPA, PHOS ####[place] [phone]#### TRANSF ####[place] [phone] Abs [place] 0.29 k/uL Normal <0.87 [facility] Comment on above: Performed By: #### P T, PTT, AMYL, CMP, LIPA, PHOS ####[place] [address]#### TRANSF ####[place] [phone] Abs Neut 3.08 k/uL Normal 1.45-7.50 [facility] Comment on above: Performed By: #### P T, PTT, AMYL, CMP, LIPA, PHOS ####[place] [address]#### TRANSF ####[place] [phone] Basophils/100 WBC Auto (Bld) 0.6 % Normal [facility] Comment on above: Performed By: #### P T, PTT, AMYL, CMP, LIPA, PHOS ####[place] [address]#### TRANSF ####[place] [phone] DTYPE Auto Diff Normal [facility] Comment on above: Performed By: #### P T, PTT, AMYL, CMP, LIPA, PHOS ####[place] [address]#### TRANSF ####[place] [phone] Eosinophils 0.19 10*3/uL Normal <0.46 [facility] Comment on above: Performed By: #### P T, PTT, AMYL, CMP, LIPA, PHOS ####[place] [address]#### TRANSF ####[place] [phone] Eosinophils/100 leukocytes 3.7 % Normal [facility] Comment on above: Performed By: #### P T, PTT, AMYL, CMP, LIPA, PHOS ####[place] [address]#### TRANSF ####[place] [phone] Erythrocyte distribution width Auto Ratio (RBC) 15.6 % High 11.5-15.0 [facility] Comment on above: Performed By: #### P T, PTT, AMYL, CMP, LIPA, PHOS ####[place] [address]#### TRANSF ####[place] [phone] Erythrocytes (RBC) 2.90 10*6/uL Low 4.20-6.00 [facility] Comment on above: Performed By: #### P T, PTT, AMYL, CMP, LIPA, PHOS ####[place] [address]#### TRANSF ####[place] [phone] Hematocrit (HCT) 25.1 % Low 39.0-51.0 [facility] Comment on above: Performed By: #### P T, PTT, AMYL, CMP, LIPA, PHOS ####[place] [address]#### TRANSF ####[place] [phone] Hemoglobin mass conc (Bld) 8.0 g/dL Low 13.0-17.0 [facility] Comment on above: Performed By: #### P T, PTT, AMYL, CMP, LIPA, PHOS ####[place] [address]#### TRANSF ####[place] [phone] Lymphocytes 1.56 10*3/uL Normal 1.00-4.00 [facility] Comment on above: Performed By: #### P T, PTT, AMYL, CMP, LIPA, PHOS ####[place] [address]#### TRANSF ####[place] [phone] Lymphocytes/100 leukocytes 30.3 % Normal [facility] Comment on above: Performed By: #### P T, PTT, AMYL, CMP, LIPA, PHOS ####[place] [address]#### TRANSF ####[place] [phone] MCH 27.6 pG Normal 26.0-34.0 [facility] Comment on above: Performed By: #### P T, PTT, AMYL, CMP, LIPA, PHOS ####[place] [address]#### TRANSF ####[place] [phone] MCHC mass conc (RBC) 31.9 g/dL Normal 30.5-36.0 [facility] Comment on above: Performed By: #### P T, PTT, AMYL, CMP, LIPA, PHOS ####[place] [address]#### TRANSF ####[place] [phone] MCV 86.6 fL Normal 80.0-100.0 [facility] Comment on above: Performed By: #### P T, PTT, AMYL, CMP, LIPA, PHOS ####[place] [address]#### TRANSF ####[address]the[address] [place] [phone] Monocytes/100 leukocytes 5.6 % Normal [facility] Comment on above: Performed By: #### P T, PTT, AMYL, CMP, LIPA, PHOS ####[place] [address]#### TRANSF ####[address] AvCourtney [place]ille [phone] Neutrophils/100 WBC Auto (Bld) 59.8 % Normal [facility] Comment on above: Performed By: #### P T, PTT, AMYL, CMP, LIPA, PHOS ####[place] [address]#### TRANSF ####[place] [phone] Platelet mean volume (PMV) 9.2 fL Normal 9.0-12.7 [facility] Comment on above: Performed By: #### P T, PTT, AMYL, CMP, LIPA, PHOS ####[place] [address]#### TRANSF ####[place] [phone] Platelets 481 10*3/uL High 150-400 [facility] Comment on above: Performed By: #### P T, PTT, AMYL, CMP, LIPA, PHOS ####[place] [address]#### TRANSF ####[address]the[address] [place]ille [phone] WBC (Leukocytes) 5.15 10*3/uL Normal 3.70-11.00 [facility] Comment on above: Performed By: #### P T, PTT, AMYL, CMP, LIPA, PHOS ####[facility] [place], [place] [phone]#### TRANSF ####[facility] [address] [place], [place] [phone] IR EXCHANGE CATH BILI DRAINo n 08-27-2017 [...] Air Kerma: 2083.0 mGyDose Area Product (DAP): 261711.0 mGy*bh8Fcrfad Time: 14:00 min:secRadiation dose exceed 5 Gy: NoIf radiation dose exceeded 5 Gy, was counseling and instructional brochure provided: N/ATECHNIQUE: The patient was prepped and draped using all elements of maximal sterile barrier technique (cap, mask, sterile gown, sterile gloves, a large sterile sheet, hand hygiene and cutaneous antisepsis)After local anesthesia, the indwelling 10 Jamaican right internal/external drain was removed over a wire and a long sheath was placed. Cholangiogram was performed. Using a KMP catheter and Glidewire, access was obtained into the first part of the duodenum and then into the third part of the duodenum and contrast injection was performed to assess for duodenal stricture. Over an Amplatz wire, a 12 Jamaican right internal/external drain was placed with the [...] of Removed Specimens: noneATTENDING RADIOLOGIST: Juan Aguero M.D.PSYCH TECH: NoneThe procedure was performed by the: attending radiologist, without an property management assistant.The attending radiologist performed the following procedural [...] changed. Please maintain this tube to external bag.Complex Human Resources Manager: PSCB Transcribe Date/Time: Aug 27 2017 2:25PDictated by : JUAN AGUERO MDThis examination was interpreted and the report reviewed and electronically signed by: JUAN AGUERO MD on Aug 27 2017 4:27PM EST Normal [facility] Magnesiumon 08-27-2017 Magnesium 2.2 mg/dL Normal 1.7-2.6 [facility] Comment on above: Performed By: #### P T, PTT, AMYL, CMP, LIPA, PHOS ####[facility] [place], [place] [phone]#### TRANSF ####[facility] [place], [place] [phone] PROGRESSon 08-27-2017 PROGRESS HNO ID: [id number] thor: Lee Ann Thao, ASHLEYervice: General SurgeryAuthor Type: ResidentType: Progress NotesFiled: 08/27/2017 8:05 AMNote Text:PROGRESS NOTES - SURGICAL SERVICESPATIENT NAME: Rociomarisa HayesN: [id number] HISTORY OF PRESENT ILLNESS:No acute events overnight. [...] Carolina Thao MD8:02 AM August 27, 2017PAGER: [phone] [facility] PT EDon 08-27-2017 PT ED HNO ID: [id number] thor: Lee Ann (Rn) MOUSTAPHA Drakeervice: RadiologyAuthor Type: Registered NurseType: Patient EducationFiled: 08/27/2017 10:43 AMNote Text:PATIENT EDUCATION TOPIC: PROCEDURE / SURGERY: Procedure/Surgery:cholangiog shanon and biliary tube exchange 12frPATIENT NAME: Rocio Boudreaux: [id number] LOCATION: [place] [address]/[id number] S TO LEARNCOGNITIVE ABILITY: Alert and orientedMOTIVATION [...] Signed By: Lee Ann Drake RN [facility] Phosphoruson 08-27-2017 Phosphate 4.0 mg/dL Normal 2.5-4.5 [facility] Comment on above: Performed By: #### P T, PTT, AMYL, CMP, LIPA, PHOS ####[facility] [place], [place] [phone]#### TRANSF ####[facility] [address] [place], [place] [phone] THERAPY NTon 08-27-2017 THERAPY NT HNO ID: [id number] thor: Mandi Bowmanervice: Occupational TherapyAuthor Type: Occupational TherapistType: Therapy (PT/OT/Speech/Resp)Filed: 08/27/2017 3:16 PMNote Text:OCCUPATIONAL THERAPY MISSED VISITSERVICE DATE: 08/27/2017SERVICE TIME: 1500 to 1500ROOM: [place] [address] ( OPERATING ROOM)Attempted Treatment. Patient not seen due to Other: See Comment(Cholangiogram Today).SIGNATURE: WENDY Arceo/Timo PATIENT NAME: Rocio VizcarraTE: August 27, 2017 : 3:16 PM PAGER/CONTACT #:[phone] [facility] THERAPY NT HNO ID: [id number] thor: Adela Holcomb) DangService: Physical TherapyAuthor Type: Physical Therapy AssistantType: Therapy (PT/OT/Speech/Resp)Filed: 08/27/2017 11:44 AMNote Text: -Attestation signed by Gonzales KenPt) Nola at 08/27/2017 11:44 AMI reviewed and agree with the assessment as documented above.SIGNATURE: Gonzales Vaca, PTDATE: August 27, 2017TIME: 11:44 AM PH YSICAL THERAPY MISSED VISITSERVICE DATE: 08/27/2017SERVICE TIME: 1110 to 1110ROOM: [place] [address] ( OPERATING ROOM)Attempted Treatment. Patient not seen due to Test/Procedure ( pt havingcholangiogram this a.m.).SIGNATURE: Adela Leong ERP SPECIALIST PATIENT NAME: Rocio VizcarraTE: August 27, 2017 : 11:44 AM PAGER/CONTACT #: [phone] Normal [facility] Basic Metabolic Panlon 08-26 Anion gap 11 mmol/L Normal 9-18 [facility] Comment on above: Performed By: #### P T, PTT, AMYL, CMP, LIPA, PHOS ####[place] [phone]#### TRANSF ####[place] [phone] Calcium 8.7 mg/dL Normal 8.5-10.5 [facility] Comment on above: Performed By: #### P T, PTT, AMYL, CMP, LIPA, PHOS ####[place] [phone]#### TRANSF ####[place] [phone] Chloride 101 mmol/L Normal 98-110 [facility] Comment on above: Performed By: #### P T, PTT, AMYL, CMP, LIPA, PHOS ####[place] [phone]#### TRANSF ####[place] [address] [phone] CO2 26 mmol/L Normal 23-32 [facility] Comment on above: Performed By: #### P T, PTT, AMYL, CMP, LIPA, PHOS ####[place] 237596-7110#### TRANSF ####[place] [phone] Creatinine 0.58 mg/dL Low 0.70-1.40 [facility] Comment on above: Performed By: #### P T, PTT, AMYL, CMP, LIPA, PHOS ####[address]#### TRANSF ####[place] [phone] eGFR (non-black) mL/min/{1.73_m2} Normal >60 [facility] Comment on above: Performed By: #### P T, PTT, AMYL, CMP, LIPA, PHOS ####[address]#### TRANSF ####[place] [phone] Glucose mass conc 124 mg/dL High 65-100 [facility] Comment on above: Performed By: #### P T, PTT, AMYL, CMP, LIPA, PHOS ####[place] [address]#### TRANSF ####[place] [phone] Potassium molar conc 4.5 mmol/L Normal 3.5-5.0 [facility] Comment on above: Performed By: #### P T, PTT, AMYL, CMP, LIPA, PHOS ####[place] [phone]#### TRANSF ####[place] [phone] Sodium 138 mmol/L Normal 135-146 [facility] Comment on above: Performed By: #### P T, PTT, AMYL, CMP, LIPA, PHOS ####[place] [address]#### TRANSF ####[place] [phone] Urea nitrogen 11 mg/dL Normal 10-25 [facility] Comment on above: Performed By: #### P T, PTT, AMYL, CMP, LIPA, PHOS ####[place] [address]#### TRANSF ####[place] [phone] CBC and Differentialon 08-26 Abs Baso <0.03 Normal <0.11 [facility] Comment on above: Performed By: #### P T, PTT, AMYL, CMP, LIPA, PHOS ####[place] [address]#### TRANSF ####[place] [phone] Abs [place] 0.57 k/uL Normal <0.87 [facility] Comment on above: Performed By: #### P T, PTT, AMYL, CMP, LIPA, PHOS ####[place] [address]#### TRANSF ####[place] [phone] Abs Neut 4.61 k/uL Normal 1.45-7.50 [facility] Comment on above: Performed By: #### P T, PTT, AMYL, CMP, LIPA, PHOS ####[place] [address]#### TRANSF ####[place] [phone] Basophils/100 WBC Auto (Bld) 0.1 % Normal [facility] Comment on above: Performed By: #### P T, PTT, AMYL, CMP, LIPA, PHOS ####[place] [address]#### TRANSF ####[place] [phone] DTYPE Auto Diff Normal [facility] Comment on above: Performed By: #### P T, PTT, AMYL, CMP, LIPA, PHOS ####[place] [address]#### TRANSF ####[place] [phone] Eosinophils 0.20 10*3/uL Normal <0.46 [facility] Comment on above: Performed By: #### P T, PTT, AMYL, CMP, LIPA, PHOS ####[place] [address]#### TRANSF ####[place] [phone] Eosinophils/100 leukocytes 2.9 % Normal [facility] Comment on above: Performed By: #### P T, PTT, AMYL, CMP, LIPA, PHOS ####[place] [address]#### TRANSF ####[place] [phone] Erythrocyte distribution width Auto Ratio (RBC) 16.0 % High 11.5-15.0 [facility] Comment on above: Performed By: #### P T, PTT, AMYL, CMP, LIPA, PHOS ####[place] [address]#### TRANSF ####[place] [phone] Erythrocytes (RBC) 3.00 10*6/uL Low 4.20-6.00 [facility] Comment on above: Performed By: #### P T, PTT, AMYL, CMP, LIPA, PHOS ####[place] [address]#### TRANSF ####[place] [phone] Hematocrit (HCT) 26.0 % Low 39.0-51.0 [facility] Comment on above: Performed By: #### P T, PTT, AMYL, CMP, LIPA, PHOS ####[place] [address]#### TRANSF ####[place] [phone] Hemoglobin mass conc (Bld) 8.3 g/dL Low 13.0-17.0 [facility] Comment on above: Performed By: #### P T, PTT, AMYL, CMP, LIPA, PHOS ####[place] [address]#### TRANSF ####[place] [phone] Lymphocytes 1.44 10*3/uL Normal 1.00-4.00 [facility] Comment on above: Performed By: #### P T, PTT, AMYL, CMP, LIPA, PHOS ####[place] [address]#### TRANSF ####[place] [phone] Lymphocytes/100 leukocytes 21.1 % Normal [facility] Comment on above: Performed By: #### P T, PTT, AMYL, CMP, LIPA, PHOS ####[place] [address]#### TRANSF ####[place] [phone] MCH 27.7 pG Normal 26.0-34.0 [facility] Comment on above: Performed By: #### P T, PTT, AMYL, CMP, LIPA, PHOS ####[place] [address]#### TRANSF ####[place] [phone] MCHC mass conc (RBC) 31.9 g/dL Normal 30.5-36.0 [facility] Comment on above: Performed By: #### P T, PTT, AMYL, CMP, LIPA, PHOS ####[place] [address]#### TRANSF ####[place] [phone] MCV 86.7 fL Normal 80.0-100.0 [facility] Comment on above: Performed By: #### P T, PTT, AMYL, CMP, LIPA, PHOS ####[place] [address]#### TRANSF ####[place] [phone] Monocytes/100 leukocytes 8.3 % Normal [facility] Comment on above: Performed By: #### P T, PTT, AMYL, CMP, LIPA, PHOS ####[place] [address]#### TRANSF ####[place] [phone] Neutrophils/100 WBC Auto (Bld) 67.6 % Normal [facility] Comment on above: Performed By: #### P T, PTT, AMYL, CMP, LIPA, PHOS ####[place] [address]#### TRANSF ####[place] [phone] Platelet mean volume (PMV) 9.5 fL Normal 9.0-12.7 [facility] Comment on above: Performed By: #### P T, PTT, AMYL, CMP, LIPA, PHOS ####[place] [address]#### TRANSF ####[place] [phone] Platelets 481 10*3/uL High 150-400 [facility] Comment on above: Performed By: #### P T, PTT, AMYL, CMP, LIPA, PHOS ####[place] [address]#### TRANSF ####[phone] WBC (Leukocytes) 6.83 10*3/uL Normal 3.70-11.00 [facility] Comment on above: Performed By: #### P T, PTT, AMYL, CMP, LIPA, PHOS ####[place] [address]#### TRANSF ####[phone] Magnesiumon 08-26-2017 Magnesium 2.3 mg/dL Normal 1.7-2.6 [facility] Comment on above: Performed By: #### P T, PTT, AMYL, CMP, LIPA, PHOS ####[place] [address]#### TRANSF ####[place] [phone] NURSING PROGon 08-26-2017 NURSING PROG HNO ID: [id number] thor: Saima Kramer (Rn) Debra, RNService: (none)Author Type: Registered NurseType: Nursing Progress NoteFiled: 08/26/2017 7:20 PMNote Text: Nursing Progress NotePatient Name: Rocio Boudreaux: [id number] Location: [place] [address]/[id number] ____Daily Note:IR called and stated that they will not be able to do procedureon pt this evening. Text page to gen surg to make aware.1900: Spoke w/ [facility] - full liquid diet ordered and NPO after midnight.This note was completed by: Saima Richardson RN [facility] PROGRESSon 08-26-2017 PROGRESS HNO ID: [id number] thor: Michael Cedillo) AugustinService: General SurgeryAuthor Type: PhysicianType: Progress NotesFiled: 08/26/2017 8:48 PMNote Text:PROGRESS NOTES - SURGICAL SERVICESPATIENT NAME: Rocio Boudreaux: [id number] HISTORY OF PRESENT ILLNESS:No acute events overnight. [...] tube cholangiogramToms Froilan MD, MPH, FACSGeneral/Trauma/HPB SurgeryPager: [phone] Cell: [phone] 2017 Normal [facility] Phosphoruson 08-26-2017 Phosphate 3.4 mg/dL Normal 2.5-4.5 [facility] Comment on above: Performed By: #### P T, PTT, AMYL, CMP, LIPA, PHOS ####[place] [id number] [place], [place] [phone]#### TRANSF ####[facility] [place] [phone] ALLIED HEALTHon 08-25-2017 ALLIED HEALTH HNO ID: [id number] thor: Angelita Rosas (Chaplain)Service: Spiritual CareAuthor Type: ChaplainType: Allied HealthFiled: 08/25/2017 10:39 AMNote Text:SPIRITUAL CARE PROGRESS NOTESERVICE DATE: 08/25/2017SERVICE TIME: 10:40amSaw pt on PK3C per Spiritual Care referral. Pt's lutheran is listed as None in his EMR. [...] contact the Spiritual Care Department: Please call [phone].SIGNATURE: Chaplain Tasia PATIENT NAME: Rocio JacksonDATE: August 25, 2017 : 10:38 AM PAGER/CONTACT #: [phone] Normal [facility] Basic Metabolic Panlon 08-25 Anion gap 11 mmol/L Normal 9-18 [facility] Comment on above: Performed By: #### P T, PTT, AMYL, CMP, LIPA, PHOS ####[facility] [place], [place] [phone]#### TRANSF ####[facility] [place] [phone] Calcium 8.4 mg/dL Low 8.5-10.5 [facility] Comment on above: Performed By: #### P T, PTT, AMYL, CMP, LIPA, PHOS ####[place] [address]#### TRANSF ####[address] [place] [place] [phone] Chloride 101 mmol/L Normal 98-110 [facility] Comment on above: Performed By: #### P T, PTT, AMYL, CMP, LIPA, PHOS ####[place] [address]#### TRANSF ####[place] [phone] CO2 26 mmol/L Normal 23-32 [facility] Comment on above: Performed By: #### P T, PTT, AMYL, CMP, LIPA, PHOS ####[place] [address]#### TRANSF ####[place] [address] Creatinine 0.62 mg/dL Low 0.70-1.40 [facility] Comment on above: Performed By: #### P T, PTT, AMYL, CMP, LIPA, PHOS ####[place] [address]#### TRANSF ####[place] [phone] eGFR (non-black) mL/min/{1.73_m2} Normal >60 [facility] Comment on above: Performed By: #### P T, PTT, AMYL, CMP, LIPA, PHOS ####[place] [address]#### TRANSF ####[place] [phone] Glucose mass conc 118 mg/dL High 65-100 [facility] Comment on above: Performed By: #### P T, PTT, AMYL, CMP, LIPA, PHOS ####[place] [address]#### TRANSF ####[place] [phone] Potassium molar conc 4.5 mmol/L Normal 3.5-5.0 [facility] Comment on above: Performed By: #### P T, PTT, AMYL, CMP, LIPA, PHOS ####[place] [address]#### TRANSF ####[place] [phone] Sodium 138 mmol/L Normal 135-146 [facility] Comment on above: Performed By: #### P T, PTT, AMYL, CMP, LIPA, PHOS ####[place] [address]#### TRANSF ####[place] [phone] Urea nitrogen 10 mg/dL Normal 10-25 [facility] Comment on above: Performed By: #### P T, PTT, AMYL, CMP, LIPA, PHOS ####[place] [address]#### TRANSF ####[place] [phone] CASE MANAGEMon 08-25-2017 CASE MANAGEM HNO ID: [id number] thor: Alexandrea Arreola) Thom, RNService: Care ManagementAuthor Type: Registered NurseType: Care Mgt Progress NoteFiled: 08/25/2017 12:06 PMNote Text:MULTIDISCIPLINARY ROUNDSSERVICE DATE: 08/25/2017 ADMISSION DATE: 08/13/2017SERVICE TIME: 12:03 PM ANTICIPATED D/C DATE: 2-3 daysProblem List:ACTIVE PROBLEM LISTDuodenal ObstructionSevere Protein-Calorie Malnutrition (Hcc)Attendees Present at Rounds:Feed Project Engineer: Chelsea Ecommerce Manager/Solar Field Service Technician Nurse Ecommerce Manager: Jasper Worker: Roderick Nurse: Yohannes Discussed on Rounds:DietDischarge NeedsPlan of CareAnticipated Discharge Disposition:Home with Home Health Care vs SNFper discussion with Gerri Espinoza CNP.plan for Cholangiogram tomorrow.Last Vitals: BP 113/66 Pulse 72 Temp (Src) 98.2 (Oral) Resp 16 Ht5' 8 (1.73m) Wt 192 lb (87.1kg) SpO2 98% BMI 29.20 kg/(m2).Pt is accepted at [facility] in [place].Pt also has been accepted by [facility].Nursing: Fluid/Electrolyte Goal Target Achievement Date: 08/26/17Mobility Goal Target Achievement Date: 08/26/17Pain Goal Target Achievement Date: 08/26/17DOCUMENTED BY: Alexandrea Tomas RN PATIENT NAME: Rocio JacksonDATE: August 25, 2017 : 12:03 PM CSN: [id number] Normal [facility] CBC and Differentialon 08-25 Abs Baso <0.03 Normal <0.11 [facility] Comment on above: Performed By: #### P T, PTT, AMYL, CMP, LIPA, PHOS ####[place] [phone]#### TRANSF ####[place] [phone] Abs [place] 0.46 k/uL Normal <0.87 [facility] Comment on above: Performed By: #### P T, PTT, AMYL, CMP, LIPA, PHOS ####[phone]#### TRANSF ####[place] [phone] Abs Neut 3.52 k/uL Normal 1.45-7.50 [facility] Comment on above: Performed By: #### P T, PTT, AMYL, CMP, LIPA, PHOS ####[place] [address]#### TRANSF ####[address] [place] [phone] Basophils/100 WBC Auto (Bld) 0.4 % Normal [facility] Comment on above: Performed By: #### P T, PTT, AMYL, CMP, LIPA, PHOS ####[place] [address]#### TRANSF ####[place] [phone] DTYPE Auto Diff Normal [facility] Comment on above: Performed By: #### P T, PTT, AMYL, CMP, LIPA, PHOS ####[place] [address]#### TRANSF ####[place] [phone] Eosinophils 0.21 10*3/uL Normal <0.46 [facility] Comment on above: Performed By: #### P T, PTT, AMYL, CMP, LIPA, PHOS ####[place] [address]#### TRANSF ####[place] [address] Eosinophils/100 leukocytes 3.7 % Normal [facility] Comment on above: Performed By: #### P T, PTT, AMYL, CMP, LIPA, PHOS ####[place] [address]#### TRANSF ####[address] [place] [place] [phone] Erythrocyte distribution width Auto Ratio (RBC) 15.8 % High 11.5-15.0 [facility] Comment on above: Performed By: #### P T, PTT, AMYL, CMP, LIPA, PHOS ####[place] [address]#### TRANSF ####[place] [phone] Erythrocytes (RBC) 2.91 10*6/uL Low 4.20-6.00 [facility] Comment on above: Performed By: #### P T, PTT, AMYL, CMP, LIPA, PHOS ####[place] [address]#### TRANSF ####[place] [phone] Hematocrit (HCT) 25.6 % Low 39.0-51.0 [facility] Comment on above: Performed By: #### P T, PTT, AMYL, CMP, LIPA, PHOS ####[place] [address]#### TRANSF ####[place] [phone] Hemoglobin mass conc (Bld) 8.0 g/dL Low 13.0-17.0 [facility] Comment on above: Performed By: #### P T, PTT, AMYL, CMP, LIPA, PHOS ####[place] [address]#### TRANSF ####[place] [phone] Lymphocytes 1.45 10*3/uL Normal 1.00-4.00 [facility] Comment on above: Performed By: #### P T, PTT, AMYL, CMP, LIPA, PHOS ####[place] [address]#### TRANSF ####[place] [phone] Lymphocytes/100 leukocytes 25.6 % Normal [facility] Comment on above: Performed By: #### P T, PTT, AMYL, CMP, LIPA, PHOS ####[address]#### TRANSF ####[phone] MCH 27.5 pG Normal 26.0-34.0 [facility] Comment on above: Performed By: #### P T, PTT, AMYL, CMP, LIPA, PHOS ####[address]#### TRANSF ####[phone] MCHC mass conc (RBC) 31.3 g/dL Normal 30.5-36.0 [facility] Comment on above: Performed By: #### P T, PTT, AMYL, CMP, LIPA, PHOS ####[place] [address]#### TRANSF ####[phone] MCV 88.0 fL Normal 80.0-100.0 [facility] Comment on above: Performed By: #### P T, PTT, AMYL, CMP, LIPA, PHOS ####[place] [address]#### TRANSF ####[phone] Monocytes/100 leukocytes 8.1 % Normal [facility] Comment on above: Performed By: #### P T, PTT, AMYL, CMP, LIPA, PHOS ####[place] [address]#### TRANSF ####[phone] Neutrophils/100 WBC Auto (Bld) 62.2 % Normal [facility] Comment on above: Performed By: #### P T, PTT, AMYL, CMP, LIPA, PHOS ####[place] [address]596[address]#### TRANSF ####[place] [phone] Platelet mean volume (PMV) 10.1 fL Normal 9.0-12.7 [facility] Comment on above: Performed By: #### P T, PTT, AMYL, CMP, LIPA, PHOS ####[place] [address]#### TRANSF ####[place] [phone] Platelets 444 10*3/uL High 150-400 [facility] Comment on above: Performed By: #### P T, PTT, AMYL, CMP, LIPA, PHOS ####[place] [address]#### TRANSF ####[place] [phone] WBC (Leukocytes) 5.66 10*3/uL Normal 3.70-11.00 [facility] Comment on above: Performed By: #### P T, PTT, AMYL, CMP, LIPA, PHOS ####[place] [address]#### TRANSF ####[place] [phone] Magnesiumon 08-25-2017 Magnesium 2.3 mg/dL Normal 1.7-2.6 [facility] Comment on above: Performed By: #### P T, PTT, AMYL, CMP, LIPA, PHOS ####[place] 237596[address]#### TRANSF ####[place] [address] [place], [place] [phone] NURSING PROGon 08-25-2017 NURSING PROG HNO ID: [id number] thor: Shavonne KenRn) [place], RNService: NursingAuthor Type: Registered NurseType: Nursing Progress NoteFiled: 08/25/2017 2:30 PMNote Text: Nursing Progress NotePatient Name: Rocio JacksonMRN: [id number] Location: [place] [address]/AR-[id number] ____Daily Note:Pt A+Ox3, speech clear, flat affect. Skin pale and slightly jaundiced.NSR with occasional PVC's on gambling monitor. Abdomen soft, bowel soundspresent, +Flatus and [...] was completed by: Shavonne Mays RN [facility] NUTRITIONon 08-25-2017 NUTRITION HNO ID: [id number] thor: Alise Segura) BarsaService: Nutrition TherapyAuthor Type: [...] Weight: 87?kgResting Metabolic Rate: 1661Estimated kilocalorie needs: 3318-2956?kilocalories determined by25-30?kcal/kgEstimated protein needs:113 - ?130?grams determined [...] kg (192 lb) SpO2 97% BMI 29.19 kg/g9Ylvcrf Labs 0GLUC 118*BUN 10CREAT 0.62*NA 138K 4.5CHLOR [...] 5,000 Units SUBCUTANEOUS q 8 Hphenol 1 [place] (CHLORASEPTIC) 1 [place] MUCOUS MEMBRANE (TOPICAL MOUTH ANDTHROAT) q 2 [...] 2217 2125 1429 1930 629 Net (ml) -2218 -680 431 -6455 226Surgical Incision 08/14/17 0103 Abdomen - Laparoscopy [...] assistance and weekends please page theGroup Pager [phone] [facility] PROGRESSon 08-25-2017 PROGRESS HNO ID: [id number] thor: Michael Cedillo) AugustinService: General SurgeryAuthor Type: PhysicianType: Progress NotesFiled: 08/25/2017 11:42 AMNote Text:GENERAL SURGERY INPATIENT PROGRESS NOTENAME: Rocio JacksonMRN: [id number] 2017 7:52 AMASSESSMENT AND PLAN:Rocio Jackson is [...] kg (192 lb) SpO2 97% BMI 29.19 kg/g6Ebfvtk: Breathing comfortably on RA, speaking in full sentencesAbdominal examination: Abdomen soft, non-distended, mildly tenderTubes/Drains/Stoma: PTHC drain in place, serosanguineous outputFlatus/Bowel movement: Bowel function +Nausea/Emesis: NegativePain Control: IV dilaudid PO tylenolRenal: UOP adequateAntibiotics: AugmentinPending labs/results: None. Culture grew streptococcus mutansDate 08/23/17 0700 - 08/24/17 0659 08/24/17 07 - 08/25/17 0659Shift 6660-1221 4812-2321 3098-0972 24 Hour Total 4286-1337 3783-60578105-3557 24 Hour TotalINTAKE PO 1080 251 26 7672 PO 600 688 00 5318 Supplements (mL) 480 240 720 Shift Total 1080 720 60 1860OUTPUT Urine 3 101 104 0 0 Void (ml) 100 100 0 0 Urine Incontinence/Not Saved 1 x 1 x Urine Not Saved 3 1 4 Emesis 0 0 Emesis (ml) 0 0 Tubes 625 976 814 2094 300 300 Drain/Tube Output (Drain/Tube 08/15/17 1530 Assessment Right UpperAbdomen) 50 50 0 0 Drain/Tube Output (Drain/Tube 08/19/17 1443 Biliary Right Lateral;LowerQuadrant Abdomen) 625 782 881 3439 300 300 # of BMs Number of BMs 2 x 1 x 1 x 4 x 1 x 1 x Shift Total 625 913 023 3559 300 300Weight (kg) 87.1 87.1 87.1 87.1 [...] Ann Thao MD7:52 AM August 25, 2017PAGER: [phone](After 6pm and weekends please contact Surgery oncall [...] cap Noah Jolley MD, MPH, FACSGeneral/Trauma/HPB SurgeryPager: [phone] Cell: [phone] 2017 Normal [facility] Phosphoruson 08-25-2017 Phosphate 3.0 mg/dL Normal 2.5-4.5 [facility] Comment on above: Performed By: #### P T, PTT, AMYL, CMP, LIPA, PHOS ####[facility] [place], [place] [phone]#### TRANSF ####[facility] [address] [place], [place] [phone] THERAPY NTon 08-25-2017 THERAPY NT HNO ID: [id number] thor: Sujata (Pt) PapcunService: Physical TherapyAuthor Type: Physical TherapistType: Therapy (PT/OT/Speech/Resp)Filed: 08/25/2017 12:18 PMNote Text:Physical Therapy TreatmentSERVICE DATE: 08/25/2017SERVICE TIME: 1143 to 1206ROOM: -YC4W-16 ( OPERATING ROOM)Recommended Discharge Disposition: Home PTRecommended [...] internal biliary drain placement;cholangiogram planned tomorrow per [facility]. Requires skilled PT for forimprovement of [...] Reduced mobility-other;Muscle Weakness (generalized)Interventions Provided: Therapeutic Exercise (52948);Gait Training (40701)Therapeutic Exercise (51976) Treatment Minutes: 121 unitSkilled Intervention(s): Instruction in therapeutic exercise BLE seatedfor strengthening, cues for tempo.Gait Training (43378) Treatment Minutes: 111 unitSkilled Intervention(s): Instruction in [...] 25, 2017 : 12:16 PM PAGER/CONTACT #: [phone] [facility] ALLIED HEALTH 08-24-2017 ALLIED HEALTH HNO ID: [id number] thor: Albert Sutherland: (none)Author Type: (none)Type: Allied HealthFiled: 08/24/2017 6:37 PMNote Text: Radiology Service Progress NotePATIENT NAME: Rocio JacksonMRN: [id number] OF SERVICE: August 24, 2017TIME: 6:37 PMPATIENT IDENTITY VERIFICATION COMPLETED USING TWO (2) METHODS: Patientconfirmed name verbally and ID band matches..PATIENT GENDER DATA: MalePATIENT RELEVANT IMPLANT DATA REVIEWED: Not ApplicableRADIOLOGY DEPARTMENT: CT; Exam(s) Completed: Abdomen/PelvisPERIPHERAL IV DATA: Inpatient: see LDA documentationSIGNED BY: Albert Vaughan 2017 6:37 PM Normal [facility] CASE MANAGEMon 08-24-2017 CASE MANAGEM HNO ID: [id number] thor: Alexandrea (Rn) Thom, RNService: Care ManagementAuthor [...] he feels weeker, he requests SNF in [facility],A list was given to pt.PT OT updates are needed.A Precert is needed.Pt is on Full Liquid dietSIGNATURE: Alexandrea Tomsa RN PATIENT NAME: Rociomarisa JacksonDATE: August 24, 2017 : 10:39 AM PAGER/CONTACT #: [phone] Normal [facility] CBC and Differentialon 08-24 Abs Baso <0.03 Normal <0.11 [facility] Comment on above: Performed By: #### P T, PTT, AMYL, CMP, LIPA, PHOS ####[address]#### TRANSF ####[place] [phone] Abs [place] 0.51 k/uL Normal <0.87 [facility] Comment on above: Performed By: #### P T, PTT, AMYL, CMP, LIPA, PHOS ####[place] [address]#### TRANSF ####[place] [phone] Abs Neut 3.42 k/uL Normal 1.45-7.50 [facility] Comment on above: Performed By: #### P T, PTT, AMYL, CMP, LIPA, PHOS ####[place] [address]#### TRANSF ####[place] [address] [place] [address] Basophils/100 WBC Auto (Bld) 0.4 % Normal [facility] Comment on above: Performed By: #### P T, PTT, AMYL, CMP, LIPA, PHOS ####[place] [address]#### TRANSF ####[place] [phone] DTYPE Auto Diff Normal [facility] Comment on above: Performed By: #### P T, PTT, AMYL, CMP, LIPA, PHOS ####[place] [address]#### TRANSF ####[place] [phone] Eosinophils 0.17 10*3/uL Normal <0.46 [facility] Comment on above: Performed By: #### P T, PTT, AMYL, CMP, LIPA, PHOS ####[place] [address]#### TRANSF ####[place] [phone] Eosinophils/100 leukocytes 3.1 % Normal [facility] Comment on above: Performed By: #### P T, PTT, AMYL, CMP, LIPA, PHOS ####[place] [address]#### TRANSF ####[place] [phone] Erythrocyte distribution width Auto Ratio (RBC) 16.1 % High 11.5-15.0 [facility] Comment on above: Performed By: #### P T, PTT, AMYL, CMP, LIPA, PHOS ####[place] [address]#### TRANSF ####[place] [phone] Erythrocytes (RBC) 2.87 10*6/uL Low 4.20-6.00 [facility] Comment on above: Performed By: #### P T, PTT, AMYL, CMP, LIPA, PHOS ####[place] [address]#### TRANSF ####[place] [phone] Hematocrit (HCT) 25.2 % Low 39.0-51.0 [facility] Comment on above: Performed By: #### P T, PTT, AMYL, CMP, LIPA, PHOS ####[place] [address]#### TRANSF ####[place] [phone] Hemoglobin mass conc (Bld) 7.9 g/dL Low 13.0-17.0 [facility] Comment on above: Performed By: #### P T, PTT, AMYL, CMP, LIPA, PHOS ####[place] [address]#### TRANSF ####[address] AvKristin [place] [phone] Lymphocytes 1.36 10*3/uL Normal 1.00-4.00 [facility] Comment on above: Performed By: #### P T, PTT, AMYL, CMP, LIPA, PHOS ####[place] [address]#### TRANSF ####[place] [phone] Lymphocytes/100 leukocytes 24.8 % Normal [facility] Comment on above: Performed By: #### P T, PTT, AMYL, CMP, LIPA, PHOS ####[place] [address]#### TRANSF ####[phone] MCH 27.5 pG Normal 26.0-34.0 [facility] Comment on above: Performed By: #### P T, PTT, AMYL, CMP, LIPA, PHOS ####[place] [address]#### TRANSF ####[place] [phone] MCHC mass conc (RBC) 31.3 g/dL Normal 30.5-36.0 [facility] Comment on above: Performed By: #### P T, PTT, AMYL, CMP, LIPA, PHOS ####[place] [address]#### TRANSF ####[place] [phone] MCV 87.8 fL Normal 80.0-100.0 [facility] Comment on above: Performed By: #### P T, PTT, AMYL, CMP, LIPA, PHOS ####[place] [address]#### TRANSF ####[place] [phone] Monocytes/100 leukocytes 9.3 % Normal [facility] Comment on above: Performed By: #### P T, PTT, AMYL, CMP, LIPA, PHOS ####[place] [address]#### TRANSF ####[place] [phone] Neutrophils/100 WBC Auto (Bld) 62.4 % Normal [facility] Comment on above: Performed By: #### P T, PTT, AMYL, CMP, LIPA, PHOS ####[place] [address]#### TRANSF ####[address] AvCourt[place] [phone] Platelet mean volume (PMV) 9.6 fL Normal 9.0-12.7 [facility] Comment on above: Performed By: #### P T, PTT, AMYL, CMP, LIPA, PHOS ####[address]#### TRANSF ####[address] AvCourt[place] [phone] Platelets 393 10*3/uL Normal 150-400 [facility] Comment on above: Performed By: #### P T, PTT, AMYL, CMP, LIPA, PHOS ####[place] [address]#### TRANSF ####[place] [phone] WBC (Leukocytes) 5.48 10*3/uL Normal 3.70-11.00 [facility] Comment on above: Performed By: #### P T, PTT, AMYL, CMP, LIPA, PHOS ####[address]#### TRANSF ####[address] [place]ney [place] [phone] CT ABD/PEL WO IVCONon 2017 CT ABD/PEL [...] DRAIN PLACEMENT.NEAR COMPLETE RESOLUTION OF PARA/SUBHEPATIC FLUID COLLECTION.Complex Human Resources Manager: NII Transcribe Date/Time: Aug 25 2017 8:07ADictated by : ASHLEY MORALES MDThis examination was interpreted and the report reviewed and electronically signed by: ASHLEY MORALES MD on Aug 25 2017 8:40AM [id number] Normal [facility] Magnesiumon 08-24-2017 Magnesium 2.3 mg/dL Normal 1.7-2.6 [facility] Comment on above: Performed By: #### P T, PTT, AMYL, CMP, LIPA, PHOS ####[facility] [place], [place] [phone]#### TRANSF ####[facility] [address] [place], [place] [phone] NURSING PROGon 08-24-2017 NURSING PROG HNO ID: [id number] thor: Shavonne (Rn) [place], RNService: NursingAuthor Type: Registered NurseType: Nursing Progress NoteFiled: 08/24/2017 4:58 PMNote Text: Nursing Progress NotePatient Name: Rocio JacksonMRN: [id number] Location: [place] [address]/[id number] ____Daily Note:Pt A+Ox3, flat affect, quiet. Speech clear. Skin pale and slightlyjaundiced. NSR on gambling monitor. Abdomen soft and tender, 3 lap [...] was completed by: Shavonne Mays RN [facility] PROGRESSon 08-24-2017 PROGRESS HNO ID: [id number] thor: Michael Cedillo) AugustinService: General SurgeryAuthor Type: PhysicianType: Progress NotesFiled: 08/24/2017 4:45 PMNote Text:GENERAL SURGERY INPATIENT PROGRESS NOTENAME: Rocio JacksonMRN: [id number] 2017 8:43 AMASSESSMENT AND PLAN:Rocio Jackson is [...] kg (192 lb) SpO2 97% BMI 29.19 kg/c5Ymswev: Breathing comfortably on RA, speaking in full sentencesAbdominal examination: Abdomen soft, non-distended, mildly tenderTubes/Drains/Stoma: PTHC drain in place, serosanguineous output, 1275mlFlatus/Bowel movement: Bowel function +Nausea/Emesis: NegativePain Control: IV dilaudid PO tylenolRenal: UOP adequateAntibiotics: AugmentinPending labs/results: None. Culture grew streptococcus mutansDate 08/23/17 0700 - 08/24/17 0659 08/24/17 0700 - 08/25/17 0659Shift 2832-3129 6516-1125 1762-6564 24 Hour Total 8509-5940 8583-00311913-7720 24 Hour TotalINTAKE PO 1080 393 94 4225 PO 600 692 77 4349 Supplements (mL) 480 240 720 Shift Total 1080 720 60 1860OUTPUT Urine 3 101 104 0 0 Void (ml) 100 100 0 0 Urine Incontinence/Not Saved 1 x 1 x Urine Not Saved 3 1 4 Emesis 0 0 Emesis (ml) 0 0 Tubes 625 667 818 4334 300 300 Drain/Tube Output (Drain/Tube 08/15/17 1530 Assessment Right UpperAbdomen) 50 50 0 0 Drain/Tube Output (Drain/Tube 08/19/17 1443 Biliary Right Lateral;LowerQuadrant Abdomen) 625 059 683 2028 300 300 # of BMs Number of BMs 2 x 1 x 1 x 4 x 1 x 1 x Shift Total 625 087 450 2491 300 300Weight (kg) 87.1 87.1 87.1 87.1 87.1 87.1 87.1 87.1Recent Labs 02/26/29452508/24/1803WBC 5.48 -- -- 5.23 5.64HB 7.9* -- [...] and changes will bemade where applicable.Serena Trent MDElmore [facility] Hospital Surgery, PGY - 1Pager #: [phone](After 6pm and weekends please contact Surgery oncall team)STAFF NOTEI have independently seen and examined the patient today. I haveindependently reviewed all the imaging and the labs. I agree with keycomponents of the resident's note above. Care plan and decision making hasbeen discussed.Doing well, no complaintsWill get CT to assess status of collectionsPTC cholangiogram to look for active leaksToms MD Froilan, MPH, FACSGeneral/Trauma/HPB SurgeryPager: [phone] Cell: [phone] 2017 Normal [facility] Phosphoruson 08-24-2017 Phosphate 2.6 mg/dL Normal 2.5-4.5 [facility] Comment on above: Performed By: #### P T, PTT, AMYL, CMP, LIPA, PHOS ####[facility] [place], [place] [phone]#### TRANSF ####[facility] [place], [place] [phone] THERAPY NTon 08-24-2017 THERAPY NT HNO ID: [id number] thor: Mandi (Ot) ShaquillenekService: Occupational TherapyAuthor Type: Occupational TherapistType: Therapy (PT/OT/Speech/Resp)Filed: 08/24/2017 1:30 PMNote Text:Occupational Therapy TreatmentSERVICE DATE: 08/24/2017SERVICE TIME: 1245 to 1300ROOM: [place] [address] ( OPERATING ROOM)Admit with Emesis X 1 Month, Abdominal Pain, Partial Duodenal Obstructionand Obstructive Jaundice, Abdominal Abscess, S/P CT Guided AbscessDrainage 08/15/17, S/P Recent Cholecystectomy 08/11/17, and ERCP 08/13/17?Recommended Discharge Disposition: Subacute/SNFRecommended Discharge Disposition Comments: (Pt hopes to continue therapyin SNF in [place])Anticipated Discharge Needs: Physical Assist at HomePhysical Assist at Home for: Ambulation;Cleaning;Laundry; Meals;MedicationManagement;S tairs;Self Care;Shopping;Transportation Recommended Discharge Equipment: Elastic Shoe Laces;Grab Bars-Shower;HandHeld Shower;Long Handled Shoe Horn;Long Handled Sponge;WheeledWalker;Director Phone ;Sock Aide;Shower ChairOT Recommendations to Nursing: OOB [...] History Relevantto Therapy Includes: DM, Glaucoma, HTN, [place]. For Complete Past MedicalHistory Please Refer to [...] level. 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 Pt has a small dog [...] dailyliving (ADL);Muscle Weakness (generalized)Interventions Provided: Therapeutic Activity (03203)Therapeutic Activity (52180) Treatment Minutes: 151 unitSkilled Intervention(s): Instructed patient [...] (08/24/171244)Self Care Goal Status (G8988): CJ (08/24/17 4287)Based on clinical assessment and the score on [...] August 24, 2017 : 1:28 PM PAGER: [phone] [facility] THERAPY NT HNO ID: [id number] thor: [facility] Carlin: Physical TherapyAuthor Type: Physical Therapy AssistantType: Therapy (PT/OT/Speech/Resp)Filed: 08/24/2017 10:53 AMNote Text: -Attestation signed by Tonia Schmitz at 08/24/2017 12:43 PMI reviewed and agree with the documentation corresponding to this therapyvisit.SIGNATURE: Tonia Schmitz, PTDATE: August 24, 2017TIME: 12:43 PM Ph ysical Therapy TreatmentSERVICE DATE: 08/24/2017SERVICE TIME: 1015 to 1040ROOM: [id number] ( OPERATING ROOM)Abdominal abscess; S/ P cholestectomy [...] Weakness (generalized);General symptoms andsigns-otherInterventions Provided: Therapeutic Exercise (90593);Gait Training (45832)Therapeutic Exercise (87301) Treatment Minutes: 101 unitSkilled Intervention(s): Instruction in therapeutic exercise for B LEstrengthening, balanceVerbal and tactile cuing provided for pace and performance; rest breaksprovided as neededGait Training (83703) Treatment Minutes: 151 unitSkilled Intervention(s): Instruction in [...] 24, 2017 : 10:46 AM PAGER/CONTACT #: [phone] Normal [facility] Basic Metabolic Panlon 08-23 Anion gap 10 mmol/L Normal 9-18 [facility] Comment on above: Performed By: #### P T, PTT, AMYL, CMP, LIPA, PHOS ####[place] [address]#### TRANSF ####[address] [place] [phone] Calcium 7.7 mg/dL Low 8.5-10.5 [facility] Comment on above: Performed By: #### P T, PTT, AMYL, CMP, LIPA, PHOS ####[place] [address]#### TRANSF ####[place] [address] Chloride 104 mmol/L Normal 98-110 [facility] Comment on above: Performed By: #### P T, PTT, AMYL, CMP, LIPA, PHOS ####[place] [address]#### TRANSF ####[place] [address] CO2 25 mmol/L Normal 23-32 [facility] Comment on above: Performed By: #### P T, PTT, AMYL, CMP, LIPA, PHOS ####[place] [address]#### TRANSF ####[address] AvCra[place] [address] Creatinine 0.55 mg/dL Low 0.70-1.40 [facility] Comment on above: Performed By: #### P T, PTT, AMYL, CMP, LIPA, PHOS ####[place] [address]#### TRANSF ####[facility] [place] [phone] eGFR (non-black) mL/min/{1.73_m2} Normal >60 [facility] Comment on above: Performed By: #### P T, PTT, AMYL, CMP, LIPA, PHOS ####[place] [address]#### TRANSF ####[place] [phone] Glucose mass conc 123 mg/dL High 65-100 [facility] Comment on above: Performed By: #### P T, PTT, AMYL, CMP, LIPA, PHOS ####[place] [address]#### TRANSF ####[place] [phone] Potassium molar conc 4.1 mmol/L Normal 3.5-5.0 [facility] Comment on above: Performed By: #### P T, PTT, AMYL, CMP, LIPA, PHOS ####[place] [address]#### TRANSF ####[place] [phone] Sodium 139 mmol/L Normal 135-146 [facility] Comment on above: Performed By: #### P T, PTT, AMYL, CMP, LIPA, PHOS ####[place] [address]#### TRANSF ####[place] [phone] Urea nitrogen 10 mg/dL Normal 10-25 [facility] Comment on above: Performed By: #### P T, PTT, AMYL, CMP, LIPA, PHOS ####[address]#### TRANSF ####[address] [place], [place] [phone] Magnesiumon 08-23-2017 Magnesium 2.3 mg/dL Normal 1.7-2.6 [facility] Comment on above: Performed By: #### P T, PTT, AMYL, CMP, LIPA, PHOS ####[facility] [place], [place] [phone]#### TRANSF ####[facility] [place], [place] [phone] PROGRESSon 08-23-2017 PROGRESS HNO ID: [id number] thor: Aamir Damon: General SurgeryAuthor Type: PhysicianType: Progress NotesFiled: 08/23/2017 1:57 PMNote Text:PROGRESS NOTES - SURGICAL SERVICESPATIENT NAME: Rocio JacksonMRN: [id number] HISTORY OF PRESENT ILLNESS:No acute events overnight. [...] stable.Aamir Manning MDFebruary 2017 1:57 PM Normal [facility] Phosphoruson 08-23-2017 Phosphate 2.4 mg/dL Low 2.5-4.5 [facility] Comment on above: Performed By: #### P T, PTT, AMYL, CMP, LIPA, PHOS ####[facility] [place], [place] [phone]#### TRANSF ####[place] [phone] Basic Metabolic Panlon 08-22 Anion gap 9 mmol/L Normal 9-18 [facility] Comment on above: Performed By: #### P T, PTT, AMYL, CMP, LIPA, PHOS ####[place] [address]#### TRANSF ####[place] [phone] Calcium 7.7 mg/dL Low 8.5-10.5 [facility] Comment on above: Performed By: #### P T, PTT, AMYL, CMP, LIPA, PHOS ####[place] [address]#### TRANSF ####[place] [phone] Chloride 105 mmol/L Normal 98-110 [facility] Comment on above: Performed By: #### P T, PTT, AMYL, CMP, LIPA, PHOS ####[place] [address]#### TRANSF ####[place] [phone] CO2 25 mmol/L Normal 23-32 [facility] Comment on above: Performed By: #### P T, PTT, AMYL, CMP, LIPA, PHOS ####[place] [address]#### TRANSF ####[place] [phone] Creatinine 0.57 mg/dL Low 0.70-1.40 [facility] Comment on above: Performed By: #### P T, PTT, AMYL, CMP, LIPA, PHOS ####[place] [id number]#### TRANSF ####[place] [phone] eGFR (non-black) mL/min/{1.73_m2} Normal >60 [facility] Comment on above: Performed By: #### P T, PTT, AMYL, CMP, LIPA, PHOS ####[place] [address]#### TRANSF ####[place] [phone] Glucose mass conc 111 mg/dL High 65-100 [facility] Comment on above: Performed By: #### P T, PTT, AMYL, CMP, LIPA, PHOS ####[address]#### TRANSF ####[place] [phone] Potassium molar conc 3.7 mmol/L Normal 3.5-5.0 [facility] Comment on above: Performed By: #### P T, PTT, AMYL, CMP, LIPA, PHOS ####[place] [address]#### TRANSF ####[place] [phone] Sodium 139 mmol/L Normal 135-146 [facility] Comment on above: Performed By: #### P T, PTT, AMYL, CMP, LIPA, PHOS ####[place] 237596[address]#### TRANSF ####[place] [phone] Urea nitrogen 8 mg/dL Low 10-25 [facility] Comment on above: Performed By: #### P T, PTT, AMYL, CMP, LIPA, PHOS ####[phone]#### TRANSF ####[place] [phone] CBC and Differentialon 08-22 Abs Baso <0.03 Normal <0.11 [facility] Comment on above: Performed By: #### P T, PTT, AMYL, CMP, LIPA, PHOS ####[place] [address]#### TRANSF ####[place] [phone] Abs [place] 0.41 k/uL Normal <0.87 [facility] Comment on above: Performed By: #### P T, PTT, AMYL, CMP, LIPA, PHOS ####[place] [address]#### TRANSF ####[place] [phone] Abs Neut 3.57 k/uL Normal 1.45-7.50 [facility] Comment on above: Performed By: #### P T, PTT, AMYL, CMP, LIPA, PHOS ####[place] [address]#### TRANSF ####[place] [phone] Basophils/100 WBC Auto (Bld) 0.2 % Normal [facility] Comment on above: Performed By: #### P T, PTT, AMYL, CMP, LIPA, PHOS ####[place] [address]#### TRANSF ####[place] [phone] DTYPE Auto Diff Normal [facility] Comment on above: Performed By: #### P T, PTT, AMYL, CMP, LIPA, PHOS ####[place] [address]#### TRANSF ####[place] [address] Eosinophils 0.15 10*3/uL Normal <0.46 [facility] Comment on above: Performed By: #### P T, PTT, AMYL, CMP, LIPA, PHOS ####[place] [address]#### TRANSF ####[place] [address] Eosinophils/100 leukocytes 2.9 % Normal [facility] Comment on above: Performed By: #### P T, PTT, AMYL, CMP, LIPA, PHOS ####[place] [address]#### TRANSF ####[place] [address] Erythrocyte distribution width Auto Ratio (RBC) 16.1 % High 11.5-15.0 [facility] Comment on above: Performed By: #### P T, PTT, AMYL, CMP, LIPA, PHOS ####[place] [address]#### TRANSF ####[place] [address] Erythrocytes (RBC) 2.90 10*6/uL Low 4.20-6.00 [facility] Comment on above: Performed By: #### P T, PTT, AMYL, CMP, LIPA, PHOS ####[place] [address]#### TRANSF ####[place] [address] Hematocrit (HCT) 25.0 % Low 39.0-51.0 [facility] Comment on above: Performed By: #### P T, PTT, AMYL, CMP, LIPA, PHOS ####[address]#### TRANSF ####[place] [phone] Hemoglobin mass conc (Bld) 8.1 g/dL Low 13.0-17.0 [facility] Comment on above: Performed By: #### P T, PTT, AMYL, CMP, LIPA, PHOS ####[place] [address]#### TRANSF ####[place] [phone] Lymphocytes 1.09 10*3/uL Normal 1.00-4.00 [facility] Comment on above: Performed By: #### P T, PTT, AMYL, CMP, LIPA, PHOS ####[place] [address]#### TRANSF ####[place] [phone] Lymphocytes/100 leukocytes 20.8 % Normal [facility] Comment on above: Performed By: #### P T, PTT, AMYL, CMP, LIPA, PHOS ####[place] [address]#### TRANSF ####[place] [phone] MCH 27.9 pG Normal 26.0-34.0 [facility] Comment on above: Performed By: #### P T, PTT, AMYL, CMP, LIPA, PHOS ####[place] [address]#### TRANSF ####[place] [phone] MCHC mass conc (RBC) 32.4 g/dL Normal 30.5-36.0 [facility] Comment on above: Performed By: #### P T, PTT, AMYL, CMP, LIPA, PHOS ####[place] [address]#### TRANSF ####[place] [phone] MCV 86.2 fL Normal 80.0-100.0 [facility] Comment on above: Performed By: #### P T, PTT, AMYL, CMP, LIPA, PHOS ####[place] [address]#### TRANSF ####[place] [phone] Monocytes/100 leukocytes 7.8 % Normal [facility] Comment on above: Performed By: #### P T, PTT, AMYL, CMP, LIPA, PHOS ####[place] [address]#### TRANSF ####[place] [phone] Neutrophils/100 WBC Auto (Bld) 68.3 % Normal [facility] Comment on above: Performed By: #### P T, PTT, AMYL, CMP, LIPA, PHOS ####[place] [address]#### TRANSF ####[phone] Platelet mean volume (PMV) 9.9 fL Normal 9.0-12.7 [facility] Comment on above: Performed By: #### P T, PTT, AMYL, CMP, LIPA, PHOS ####[place] [address]#### TRANSF ####[place] [phone] Platelets 354 10*3/uL Normal 150-400 [facility] Comment on above: Performed By: #### P T, PTT, AMYL, CMP, LIPA, PHOS ####[place] [address] [place], [place] [phone]#### TRANSF ####[facility] [place], [place] [phone] WBC (Leukocytes) 5.23 10*3/uL Normal 3.70-11.00 [facility] Comment on above: Performed By: #### P T, PTT, AMYL, CMP, LIPA, PHOS ####[place] [address] [place], [place] [phone]#### TRANSF ####[place] [address] [place], [place] [phone] CONSULT PROGon 08-22-2017 CONSULT PROG HNO ID: [id number] thor: Sabrina (Griselda) PineiroService: Cardiovascular DiseaseAuthor Type: [...] 5,000 Units SUBCUTANEOUS q 8 Hphenol 1 [place] (CHLORASEPTIC) 1 [place] MUCOUS MEMBRANE (TOPICAL MOUTH ANDTHROAT) q 2 [...] 2.9 2.9Liver Function, Amylase, AND LipaseRecent Labs 513043ATPYD 5.3*ALB 2.1*ALT 55*AST 42*ALKPHOS 241*TBILI 0.7SIGNATURE: Sabrina Arango, SPEECH TEACHER PATIENT NAME: Rocio VizcarraTE: August 22, 2017 : 2:37 PM PAGER/CONTACT #: Normal [facility] Magnesiumon 08-22-2017 Magnesium 2.3 mg/dL Normal 1.7-2.6 [facility] Comment on above: Performed By: #### P T, PTT, AMYL, CMP, LIPA, PHOS ####[facility] [place] [phone]#### TRANSF ####[facility] [address] [place] [phone] NUTRITIONon 08-22-2017 NUTRITION HNO ID: [id number] thor: Alise (Gordo) BarsaService: Nutrition TherapyAuthor Type: [...] Weight: 87?kgResting Metabolic Rate: 1661Estimated kilocalorie needs: 2748-5117?kilocalories determined by25-28?kcal/kgEstimated protein needs:113 - ?130?grams determined [...] 5,000 Units SUBCUTANEOUS q 8 Hphenol 1 [place] (CHLORASEPTIC) 1 [place] MUCOUS MEMBRANE (TOPICAL MOUTH ANDTHROAT) q 2 [...] 08/19/17 0659 08/19/17 0700 - 08/20/17 0659 151710 - 08/21/17 0659 08/21/17 0700 - 08/22/17 [...] assistance and weekends please page theGroup Pager [phone] [facility] PROGRESSon 08-22-2017 PROGRESS HNO ID: [id number] thor: Aamir Damon: General SurgeryAuthor Type: PhysicianType: Progress NotesFiled: 08/22/2017 3:31 PMNote Text:PROGRESS NOTES - SURGICAL SERVICESPATIENT NAME: Rocio JacksonMRN: [id number] HISTORY OF PRESENT ILLNESS:No acute events overnight. [...] of bedx3- Strict I/Os- Will discuss to AR ROMINA (at the bulb suction) and cap to [facility]- for home drain management-Dispo: Continue inpatient admissionSIGNATURE: Kayleen Gonzales, MDDATE: August 22, 2017TIME: 8:18 AMPatient denies any abdominal pain. Still gets full with only liquids.ROMINA serosang, no bileOther biloma drain bile tinged, but SS.PTC increased output to 1.2L? only temporary success to duodenal dilation.Will watch PTC output.Possible DC soon.Aamir Manning MDBanner Ironwood Medical Centeruary 2017 3:31 PM Normal [facility] Phosphoruson 08-22-2017 Phosphate 2.6 mg/dL Normal 2.5-4.5 [facility] Comment on above: Performed By: #### P T, PTT, AMYL, CMP, LIPA, PHOS ####[facility] [place], [place] [phone]#### TRANSF ####[facility] [address] [place], [place] [phone] CASE MANAGEMon 08-21-2017 CASE MANAGEM HNO ID: [id number] thor: Alexandrea (Rn) Thom, RNService: Care ManagementAuthor Type: Registered NurseType: Care Mgt Progress NoteFiled: 08/21/2017 3:26 PMNote Text:CARE MANAGEMENT PROGRESS NOTESERVICE DATE: 08/21/2017SERVICE TIME: 10:02 AM LOS: 8 daysNeeds Prior to Discharge: To Be Determined;OT/PT EvaluationPer discussion with Dr Duffy.C is planned at [place].PT OT evals are needed, pt may also need Home PT OT.[facility] accepted pt for drain care.Pt will stay with his sister. Briana Muller at [place].[address] [facility] [address]Rkbypmwrj [facility] was notified.[facility] for SN PT OT is planned.[facility] was updated.SIGNATURE: Alexandrea Thom, RN PATIENT NAME: Rocio Sibley: August 21, 2017 : 10:01 AM PAGER/CONTACT #: [phone] Normal [facility] CBC and Differentialon 08-21 Abs Baso <0.03 Normal <0.11 [facility] Comment on above: Performed By: #### P T, PTT, AMYL, CMP, LIPA, PHOS ####[place] [address]#### TRANSF ####[place] [phone] Abs [place] 0.43 k/uL Normal <0.87 [facility] Comment on above: Performed By: #### P T, PTT, AMYL, CMP, LIPA, PHOS ####[place] [address]#### TRANSF ####[phone] Abs Neut 4.17 k/uL Normal 1.45-7.50 [facility] Comment on above: Performed By: #### P T, PTT, AMYL, CMP, LIPA, PHOS ####[place] [address]#### TRANSF ####[place] [phone] Basophils/100 WBC Auto (Bld) 0.4 % [facility] Comment on above: Performed By: #### P T, PTT, AMYL, CMP, LIPA, PHOS ####[place] [address]#### TRANSF ####[phone] DTYPE Auto Diff Normal [facility] Comment on above: Performed By: #### P T, PTT, AMYL, CMP, LIPA, PHOS ####[place] [address]#### TRANSF ####[place] [phone] Eosinophils 0.18 10*3/uL Normal <0.46 [facility] Comment on above: Performed By: #### P T, PTT, AMYL, CMP, LIPA, PHOS ####[place] [address]#### TRANSF ####[place] [phone] Eosinophils/100 leukocytes 3.2 % Normal [facility] Comment on above: Performed By: #### P T, PTT, AMYL, CMP, LIPA, PHOS ####[place] [address]#### TRANSF ####[place] [address] Erythrocyte distribution width Auto Ratio (RBC) 15.9 % High 11.5-15.0 [facility] Comment on above: Performed By: #### P T, PTT, AMYL, CMP, LIPA, PHOS ####[place] [address]#### TRANSF ####[place] [phone] Erythrocytes (RBC) 3.16 10*6/uL Low 4.20-6.00 [facility] Comment on above: Performed By: #### P T, PTT, AMYL, CMP, LIPA, PHOS ####[place] [address]#### TRANSF ####[place] [phone] Hematocrit (HCT) 27.9 % Low 39.0-51.0 [facility] Comment on above: Performed By: #### P T, PTT, AMYL, CMP, LIPA, PHOS ####[place] [address]#### TRANSF ####[phone] Hemoglobin mass conc (Bld) 8.9 g/dL Low 13.0-17.0 [facility] Comment on above: Performed By: #### P T, PTT, AMYL, CMP, LIPA, PHOS ####[place] [address]#### TRANSF ####[place] [phone] Lymphocytes 0.84 10*3/uL Low 1.00-4.00 [facility] Comment on above: Performed By: #### P T, PTT, AMYL, CMP, LIPA, PHOS ####[place] [address]#### TRANSF ####[place] [phone] Lymphocytes/100 leukocytes 14.9 % Normal [facility] Comment on above: Performed By: #### P T, PTT, AMYL, CMP, LIPA, PHOS ####[place] [address]#### TRANSF ####[place] [phone] MCH 28.2 pG Normal 26.0-34.0 [facility] Comment on above: Performed By: #### P T, PTT, AMYL, CMP, LIPA, PHOS ####[place] [address]#### TRANSF ####[place] [phone] MCHC mass conc (RBC) 31.9 g/dL Normal 30.5-36.0 [facility] Comment on above: Performed By: #### P T, PTT, AMYL, CMP, LIPA, PHOS ####[place] [address]#### TRANSF ####[place] [address] [address]CM[address] [phone] MCV 88.3 fL Normal 80.0-100.0 [facility] Comment on above: Performed By: #### P T, PTT, AMYL, CMP, LIPA, PHOS ####[place] [address]#### TRANSF ####[address] [place] [phone] Monocytes/100 leukocytes 7.6 % Normal [facility] Comment on above: Performed By: #### P T, PTT, AMYL, CMP, LIPA, PHOS ####[place] [address]#### TRANSF ####[phone] Neutrophils/100 WBC Auto (Bld) 73.9 % Normal [facility] Comment on above: Performed By: #### P T, PTT, AMYL, CMP, LIPA, PHOS ####[place] [address]#### TRANSF ####[place] [address] [phone] Platelet mean volume (PMV) 10.1 fL Normal 9.0-12.7 [facility] Comment on above: Performed By: #### P T, PTT, AMYL, CMP, LIPA, PHOS ####[place] [address]#### TRANSF ####[address] Ville [phone] Platelets 380 10*3/uL Normal 150-400 [facility] Comment on above: Performed By: #### P T, PTT, AMYL, CMP, LIPA, PHOS ####[facility] [place], [place] [phone]#### TRANSF ####[place] [address] [place], [place] [phone] WBC (Leukocytes) 5.64 10*3/uL Normal 3.70-11.00 [facility] Comment on above: Performed By: #### P T, PTT, AMYL, CMP, LIPA, PHOS ####[facility] [place], [place] [phone]#### TRANSF ####[place] [address] [place], [place] [phone] CONSULT PROGon 08-21-2017 CONSULT PROG HNO ID: [id number] thor: Jessee Lottervice: Cardiovascular DiseaseAuthor Type: PhysicianType: [...] 5,000 Units SUBCUTANEOUS q 8 Hphenol 1 [place] (CHLORASEPTIC) 1 [place] MUCOUS MEMBRANE (TOPICAL MOUTH ANDTHROAT) q 2 [...] 2017 : 2:42 PM PAGER/CONTACT #: [facility] CONSULT PROG HNO ID: [id number] thor: Linda (Director Of Workforce Development) MacangaService: GastroenterologyAuthor Type: Nurse PractitionerType: Consult Progress [...] 5,000 Units SUBCUTANEOUS q 8 Hphenol 1 [place] (CHLORASEPTIC) [address] [place] MUCOUS MEMBRANE (TOPICAL MOUTH ANDTHROAT) q 2 [...] for assistance with strengthening andnutritional support?Linda Avalos CNPCrystal Downs [facility]?Thank you for allowing us to participate in the care of this patient.Please call with questions or concerns.SIGNATURE: Linda Avalos CNP PATIENT NAME: Rocio JacksonDATE: August 21, 2017 : 9:34 AM PAGER: [phone] Normal [facility] Magnesiumon 08-21-2017 Magnesium 2.2 mg/dL Normal 1.7-2.6 [facility] Comment on above: Performed By: #### P T, PTT, AMYL, CMP, LIPA, PHOS ####[facility] [place], [place] [phone]#### TRANSF ####[facility] [address] [place], [place] [phone] PROGRESSon 08-21-2017 PROGRESS HNO ID: [id number] thor: Khadar Chaneye: General SurgeryAuthor Type: PhysicianType: Progress NotesFiled: 08/21/2017 6:50 PMNote Text:PROGRESS NOTES - SURGICAL SERVICESPATIENT NAME: Rocio JacksonMRN: [id number] HISTORY OF PRESENT ILLNESS:Got PTHC on 08/19. [...] Continue inpatient admissionDAKJ HERNANDEZ MD (Res)General SurgeryPager: [phone]*On weekends or nights (after 1800) please contact the surgery on callpager.*Att: As above. Hopeful for home on full liquids/protein shakestomorrow.Consider dc of ROMINA drain before DC.PtC must be kept to gravity since it could not be advanced to duodenum.Outpt f/u with Dr Jolley as soon as available.Khadar Duffy MDFebruary 2017 6:50 PM Normal [facility] Phosphoruson 08-21-2017 Phosphate 2.9 mg/dL Normal 2.5-4.5 [facility] Comment on above: Performed By: #### P T, PTT, AMYL, CMP, LIPA, PHOS ####[facility] [place], [place] [phone]#### TRANSF ####[facility] [address] [place], [place] [phone] THERAPY NTon 08-21-2017 THERAPY NT HNO ID: [id number] thor: Sujata (Pt) PapcunService: Physical TherapyAuthor Type: Physical TherapistType: Therapy (PT/OT/Speech/Resp)Filed: 08/21/2017 2:10 PMNote Text:Physical Therapy EvaluationSERVICE DATE: 08/21/2017SERVICE TIME: 1255 to 1320ROOM: [place] [address] ( OPERATING ROOM)Recommended Discharge Disposition: Home PTAnticipated [...] drain. Patient's pertinent PMHx includesDM, glaucoma; HTN; WI; s/p WI; 2 stents. Patient's impairments as relatedto Physical [...] improve safety and independence with functionalmobility. Recommend [facility] PT with pt's approval.Tolerance Limited [...] Reduced mobility-other;Muscle Weakness (generalized)Interventions Provided: Evaluation;Gait Training (45597)$ Evaluation-Low (63771) Billed Units: 1 unitGait Training (05278) Treatment Minutes: 101 unitSkilled Intervention(s): Instruction in [...] G CODE:PT 6 Clicks Score: 19 (08/21/17 4258)Mobility: Walking and Moving Around Current Status (G8978): [...] 21, 2017 : 2:05 PM PAGER/CONTACT #: [phone] [facility] THERAPY NT HNO ID: [id number] thor: Mandi (Ot) GarnekService: Occupational TherapyAuthor Type: Occupational TherapistType: Therapy (PT/OT/Speech/Resp)Filed: 08/21/2017 11:25 AMNote Text:Occupational Therapy EvaluationSERVICE DATE: 08/21/2017SERVICE TIME: 0845 to 09ROOM: [place] [address] ( OPERATING ROOM)Admit with Emesis X 1 Month, Abdominal Pain, Partial Duodenal Obstructionand Obstructive Jaundice, Abdominal Abscess, S/P CT Guided AbscessDrainage 08/15/17, S/P Recent Cholecystectomy 08/11/17, and ERCP 08/13/17Recommended Discharge Disposition: Home OTAnticipated Discharge Needs: Physical Assist at Home;EquipmentPhysical Assist at Home for: Cleaning;Laundry;Meals;SelfC are;Shopping;TransportationR ecommended Discharge Equipment: Elastic Shoe Laces;Grab Bars-Shower;HandHeld Shower;Long Handled Shoe Horn;Long Handled Sponge;WheeledWalker;Director Phone ;Sock Aide;Shower ChairOT Recommendations to Nursing: OOB [...] History Relevantto Therapy Includes: DM, Glaucoma, HTN, WI. For Complete Past MedicalHistory Please Refer to [...] level. 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 Pt has a small dog [...] dailyliving (ADL);Muscle Weakness (generalized)Interventions Provided: Evaluation;Therapeutic Activity (32473)$ Evaluation-Low (54336) Billed Units: 1 unitTherapeutic Activity (47762) Treatment Minutes: 101 unitSkilled Intervention(s): Instructed patient [...] prior toadmit, and works FT in a [employer].OBJECTIVE:Responsiven ess: Alert;AwakeFollows Commands: 3-step CommandsVision Deficits: Wears [...] evaluation/treatment.SIGNATU RE: Mandi Jamison OTR/L PATIENT NAME: Rcoio VizcarraTE: August 21, 2017 : 11:19 AM PAGER: [phone] [facility] CASE MANAGEMon 08-20-2017 CASE MANAGEM HNO ID: [id number] thor: Alexandrea (Rn) Thom, RNService: Care ManagementAuthor Type: Registered NurseType: Care Mgt Progress NoteFiled: 08/20/2017 1:48 PMNote Text:MULTIDISCIPLINARY ROUNDSSERVICE DATE: 08/20/2017 ADMISSION DATE: 08/13/2017SERVICE TIME: 1:46 PM ANTICIPATED D/C DATE: List:ACTIVE PROBLEM LISTDuodenal ObstructionSevere Protein-Calorie Malnutrition (Hcc)Attendees Present at Rounds:Feed Project Engineer: Chantelleurse Ecommerce Manager/Solar Field Service Technician Nurse Ecommerce Manager: Roderick Nurse: Laura Discussed on Rounds:Discharge NeedsPlan of CareAnticipated Discharge Disposition:[facility] FacilityPer discussion with Dr Duffy pt [...] August 20, 2017 : 1:46 PM CSN: [id number] [facility] CBCon 08-20-2017 Erythrocyte distribution width Auto Ratio (RBC) 15.8 % High 11.5-15.0 [facility] Comment on above: Performed By: #### C BC, CMP, MG1, PHOS ####[facility] [place], [place] [phone] Erythrocytes (RBC) 2.93 10*6/uL Low 4.20-6.00 [facility] Comment on above: Performed By: #### C BC, CMP, MG1, PHOS ####[place] [address] Hematocrit (HCT) 26.0 % Low 39.0-51.0 [facility] Comment on above: Performed By: #### C BC, CMP, MG1, PHOS ####[place] [address] Hemoglobin mass conc (Bld) 8.3 g/dL Low 13.0-17.0 [facility] Comment on above: Performed By: #### C BC, CMP, MG1, PHOS ####[place] [address] MCH 28.3 pG Normal 26.0-34.0 [facility] Comment on above: Performed By: #### C BC, CMP, MG1, PHOS ####[place] [address] MCHC mass conc (RBC) 31.9 g/dL Normal 30.5-36.0 [facility] Comment on above: Performed By: #### C BC, CMP, MG1, PHOS ####[place] [address] MCV 88.7 fL Normal 80.0-100.0 [facility] Comment on above: Performed By: #### C BC, CMP, MG1, PHOS ####[place] [address] Platelet mean volume (PMV) 9.6 fL Normal 9.0-12.7 [facility] Comment on above: Performed By: #### C BC, CMP, MG1, PHOS ####[place] [address] Platelets 331 10*3/uL Normal 150-400 [facility] Comment on above: Performed By: #### C BC, CMP, MG1, PHOS ####[place] [address] WBC (Leukocytes) 5.78 10*3/uL Normal 3.70-11.00 [facility] Comment on above: Performed By: #### C BC, CMP, MG1, PHOS ####[place] [phone] Comp Metabolic Panelon 08-20 Alanine aminotransferase (ALT) 55 U/L High 5-50 [facility] Comment on above: Performed By: #### C BC, CMP, MG1, PHOS ####[place] [phone] Albumin 2.1 g/dL Low 3.5-5.0 [facility] Comment on above: Result Comment: Revi ewed Performed By: #### C BC, CMP, MG1, PHOS ####[place] [phone] Alkaline phosphatase (ALP) 241 U/L High 40-150 [facility] Comment on above: Performed By: #### C BC, CMP, MG1, PHOS ####[place] [phone] Anion gap 9 mmol/L Normal 9-18 [facility] Comment on above: Performed By: #### C BC, CMP, MG1, PHOS ####[place] [phone] Aspartate aminotransferase (AST) 42 U/L High 7-40 [facility] Comment on above: Result Comment: Resu lts may be falsely increased due to interference by hemolysis. Suggest reorder as clinically indicated. Performed By: #### C BC, CMP, MG1, PHOS ####[place] [phone] Bilirubin (total) 0.7 mg/dL Normal 0.0-1.5 [facility] Comment on above: Performed By: #### C BC, CMP, MG1, PHOS ####[place] [phone] Calcium 7.6 mg/dL Low 8.5-10.5 [facility] Comment on above: Performed By: #### C BC, CMP, MG1, PHOS ####[place] [address] Chloride 109 mmol/L Normal 98-110 [facility] Comment on above: Performed By: #### C BC, CMP, MG1, PHOS ####[place] [address] CO2 23 mmol/L Normal 23-32 [facility] Comment on above: Performed By: #### C BC, CMP, MG1, PHOS ####[place] [address] Creatinine 0.68 mg/dL Low 0.70-1.40 [facility] Comment on above: Performed By: #### C BC, CMP, MG1, PHOS ####[place] [address] eGFR (non-black) mL/min/{1.73_m2} Normal >60 [facility] Comment on above: Performed By: #### C BC, CMP, MG1, PHOS ####[place] [address] Glucose mass conc 117 mg/dL High 65-100 [facility] Comment on above: Performed By: #### C BC, CMP, MG1, PHOS ####[place] [address] Potassium molar conc 3.9 mmol/L Normal 3.5-5.0 [facility] Comment on above: Performed By: #### C BC, CMP, MG1, PHOS ####[place] [address] Protein 5.3 g/dL Low 6.0-8.4 [facility] Comment on above: Performed By: #### C BC, CMP, MG1, PHOS ####[place] [address] Sodium 141 mmol/L Normal 135-146 [facility] Comment on above: Performed By: #### C BC, CMP, MG1, PHOS ####[place] [phone] Urea nitrogen 6 mg/dL Low 10-25 [facility] Comment on above: Performed By: #### C BC, CMP, MG1, PHOS ####[place] [phone] Magnesiumon 08-20-2017 Magnesium 2.2 mg/dL Normal 1.7-2.6 [facility] Comment on above: Performed By: #### C BC, CMP, MG1, PHOS ####[place] [phone] NURSING PROGon 08-20-2017 NURSING PROG HNO ID: [id number] thor: Maryanne (Rn) Luis Miguel, RNService: (none)Author Type: Registered NurseType: Nursing Progress NoteFiled: 08/20/2017 9:53 AMNote Text: Nursing Progress NotePatient Name: Rocio TorresBryannaN: [id number] Location: [place] [id number] ____0945 - attempted to flush right double lumen PICC, both lumens are patentwith positive blood return, restarted ordered IV fluids. Patienttolerating wellThis note was completed by: Maryanne Bolanos RN Normal [facility] PROGRESSon 08-20-2017 PROGRESS HNO ID: [id number] thor: Khadar Guo: General SurgeryAuthor Type: PhysicianType: Progress NotesFiled: 08/20/2017 12:27 PMNote Text:PROGRESS NOTES - SURGICAL SERVICESPATIENT NAME: Rocio TorresBryannaN: [id number] HISTORY OF PRESENT ILLNESS:Got PTHC yesterday. No [...] am.Khadar Duffy MDFebruary 2017 12:27 PM Normal [facility] Phosphoruson 08-20-2017 Phosphate 2.9 mg/dL Normal 2.5-4.5 [facility] Comment on above: Performed By: #### C BC, CMP, MG1, PHOS ####[facility] [place], [place] [phone] ANES Ila 08-19-2017 ANES POST HNO ID: [id number] thor: Craig Pinzonervice: AnesthesiologyAuthor Type: AnesthesiologistType: Anesthesia [...] 2017 : 4:20 PM PAGER/CONTACT #: [facility] ANES PREOPon 08-19-2017 ANES PREOP HNO ID: [id number] thor: Brian Mendezervice: AnesthesiologyAuthor Type: AnesthesiologistType: Anesthesia PreOpFiled: 08/19/2017 6:27 PMNote Text:REGIONAL ANESTHESIOLOGY DAY OF SURGERY NOTEPATIENT NAME: Rocio JacksonMRN: [id number]: 1957Procedure(s) (LRB):ANESTHESIA FOR NON-INVASIVE IMAGING OR RADIATION THERAPY (N/A)Surgeon(s):Radiology [place] GibsonVanessa TritleEstimated body mass index is 29.19 kg/(m2) [...] Date- ANGIOPLASTY HX 05/15/2011 2 stents s/p WI;[facility]- CHOLECYSTECTOMY 08/11/2017 [facility]- PICC LINE INSERT/CONSULT 08/16/2017No family history on file.Social History:Social HistorySubstance Use Topics- Smoking status: Former Smoker Types: Cigarettes Quit date: 2010- Smokeless tobacco: Never Used- Alcohol use 1.5 oz/week 1 Cans of Beer (12oz) per week Comment: occasional beerNo current facility-administered medications on file prior to encounter.No current outpatient prescriptions on file prior to encounter.Inpatient medications reviewed in [facility].I have interviewed and examined the patient. I have reviewed the medicalrecord and/or the pre-anesthesia evaluation, pertinent labs, and testresults.Significant changes in the patient's condition since the History andPhysical, not otherwise documented in primary service progress notes: NoThis contains updated information obtained within 48 hours ofSurgery/Procedure.SIGNATUR E: Brian Orona MD PATIENT NAME: Rocio JacksonDATE: August 19, 2017 : 1220 PAGER/CONTACT #: [phone] (pager) [facility] BRIEF OP NOTon 08-19-2017 BRIEF OP NOT HNO ID: [id number] thor: Vanessa GarciaService: RadiologyAuthor Type: PhysicianType: Brief Op NoteFiled: 08/19/2017 2:57 PMNote Text:BRIEF OPERATIVE / PROCEDURE NOTESurgery/Procedure Date: 08/19/17Incision/Procedure Start Time:Incision Close/Procedure End Time:Surgeon(s)/Proceduralis t(s) and Solar Field Service Technician(s):Dusty Garcia - PrimaryProcedure(s): R PTHC and Int/Ext biliary drainAnesthesia: GeneralFindings: Mildly dilated IH ducts. NO filling defects. Severe D2-3strictureEstimated Blood Loss: MinimalSpecimens: NoneComplications: NonePre-Op/Pre-Procedure Diagnosis: Duodenal massPost-Op/Post-Procedure Diagnosis: SameSIGNATURE: Vanessa Garcia MD PATIENT NAME: Rocio TorresschDATE: August 19, 2017 : 2:56 PM PAGER/CONTACT #: [facility] CBCon 08-19-2017 Erythrocyte distribution width Auto Ratio (RBC) 15.4 % High 11.5-15.0 [facility] Comment on above: Performed By: #### C BC, CMP, MG1, PHOS ####[place] [address] Erythrocytes (RBC) 3.17 10*6/uL Low 4.20-6.00 [facility] Comment on above: Performed By: #### C BC, CMP, MG1, PHOS ####[place] [address] Hematocrit (HCT) 27.7 % Low 39.0-51.0 [facility] Comment on above: Performed By: #### C BC, CMP, MG1, PHOS ####[place] [address] Hemoglobin mass conc (Bld) 8.8 g/dL Low 13.0-17.0 [facility] Comment on above: Performed By: #### C BC, CMP, MG1, PHOS ####[place] [address] MCH 27.8 pG Normal 26.0-34.0 [facility] Comment on above: Performed By: #### C BC, CMP, MG1, PHOS ####[place] [address] MCHC mass conc (RBC) 31.8 g/dL Normal 30.5-36.0 [facility] Comment on above: Performed By: #### C BC, CMP, MG1, PHOS ####[place] [address] MCV 87.4 fL Normal 80.0-100.0 [facility] Comment on above: Performed By: #### C BC, CMP, MG1, PHOS ####[place] [address] Platelet mean volume (PMV) 9.7 fL Normal 9.0-12.7 [facility] Comment on above: Performed By: #### C BC, CMP, MG1, PHOS ####[address] Platelets 344 10*3/uL Normal 150-400 [facility] Comment on above: Performed By: #### C BC, CMP, MG1, PHOS ####[place] [phone] WBC (Leukocytes) 6.57 10*3/uL Normal 3.70-11.00 [facility] Comment on above: Performed By: #### C BC, CMP, MG1, PHOS ####[place] [phone] Comp Metabolic Panelon 08-19 Alanine aminotransferase (ALT) 53 U/L High 5-50 [facility] Comment on above: Performed By: #### C BC, CMP, MG1, PHOS ####[place] [phone] Albumin 2.5 g/dL Low 3.5-5.0 [facility] Comment on above: Performed By: #### C BC, CMP, MG1, PHOS ####[place] [phone] Alkaline phosphatase (ALP) 249 U/L High 40-150 [facility] Comment on above: Performed By: #### C BC, CMP, MG1, PHOS ####[place] [phone] Anion gap 11 mmol/L Normal 9-18 [facility] Comment on above: Performed By: #### C BC, CMP, MG1, PHOS ####[place] [phone] Aspartate aminotransferase (AST) 27 U/L Normal 7-40 [facility] Comment on above: Performed By: #### C BC, CMP, MG1, PHOS ####[place] [phone] Bilirubin (total) 0.9 mg/dL Normal 0.0-1.5 [facility] Comment on above: Performed By: #### C BC, CMP, MG1, PHOS ####[place] [phone] Calcium 7.6 mg/dL Low 8.5-10.5 [facility] Comment on above: Performed By: #### C BC, CMP, MG1, PHOS ####[place] [phone] Chloride 108 mmol/L Normal 98-110 [facility] Comment on above: Performed By: #### C BC, CMP, MG1, PHOS ####[place] [phone] CO2 23 mmol/L Normal 23-32 [facility] Comment on above: Performed By: #### C BC, CMP, MG1, PHOS ####[place] [phone] Creatinine 0.58 mg/dL Low 0.70-1.40 [facility] Comment on above: Performed By: #### C BC, CMP, MG1, PHOS ####[place] [phone] eGFR (non-black) mL/min/{1.73_m2} Normal >60 [facility] Comment on above: Performed By: #### C BC, CMP, MG1, PHOS ####[place] [phone] Glucose mass conc 144 mg/dL High 65-100 [facility] Comment on above: Performed By: #### C BC, CMP, MG1, PHOS ####[place] [phone] Potassium molar conc 3.4 mmol/L Low 3.5-5.0 [facility] Comment on above: Performed By: #### C BC, CMP, MG1, PHOS ####[place] [phone] Protein 5.6 g/dL Low 6.0-8.4 [facility] Comment on above: Performed By: #### C BC, CMP, MG1, PHOS ####[facility] [place], [place] [phone] Sodium 142 mmol/L Normal 135-146 [facility] Comment on above: Performed By: #### C BC, CMP, MG1, PHOS ####[facility] [place], [place] [phone] Urea nitrogen 7 mg/dL Low 10-25 [facility] Comment on above: Performed By: #### C BC, CMP, MG1, PHOS ####[facility] [place], [place] [phone] CATH BILI DRAIN INT -EXTon [...] Air Kerma: 1529.0 mGyDose Area Product (DAP): 073596.0 mGy*fp2Tapshu Time: 46:36 min:secRadiation dose exceed 5 Gy: [...] an Alvarez Set dilator. Using a 4 Jamaican Kumpe catheter in conjunction with a glide wire, access was obtained into the small bowel. Despite multiple attempts with multiple wires and catheters, the duodenal stricture could not be passed via the [facility] access. Over an Amplatz super stiff guide [...] cm internal external biliary drainage catheter, with [place] loop in small bowel and proximal sideholes [...] Specimens: 0: Surgical pathologyATTENDING RADIOLOGIST: Dusty Garcia M.D.PSYCH TECH: NoneThe procedure was performed by the:attending radiologist, without an property management assistant.The attending radiologist performed the following procedural activities: Entire procedure.IMPRESSION:SUCCESS FUL PTHC AND INTERNAL/EXTERNAL BILIARY DRAIN PLACEMENT FROM RIGHT-SIDED APPROACH.CHOLANGIOGRAM DEMONSTRATING MODERATE INTRA AND EXTRA HEPATIC BILIARY DILATION.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.THE PATIENT MAY RETURN IN 8 WEEKS FOR ROUTINE CATHETER CHANGE IF LONG-TERM PERCUTANEOUS ACCESS IS REQUIRED.Complex Human Resources Manager: NII Transcribe Date/Time: Aug 19 2017 3:26PDictated by : VANESSA GARCIA MDThis examination was interpreted and the report reviewed and electronically signed by: VANESSA GARCIA MD on Aug 21 2017 3:05PM EST Normal [facility] Magnesiumon 08-19-2017 Magnesium 2.2 mg/dL Normal 1.7-2.6 [facility] Comment on above: Performed By: #### C BC, CMP, MG1, PHOS ####[facility] [place], [place] [phone] NURSING PROGon 08-19-2017 NURSING PROG HNO ID: [id number] thor: Shavonne (Rn) [place], RNService: NursingAuthor Type: Registered NurseType: Nursing Progress NoteFiled: 08/19/2017 5:27 PMNote Text: Nursing Progress NotePatient Name: Rocio TorresBryannaN: [id number] [id number] ____Pt returned from PACU in stable condition. Right lateral lower quadrantdrain patent, draining brown, bilious fluid. A+Ox3, speech clear.Medicated for c/o generalized pain. Glucose 112. NPO order continued,green surgical team paged for updated orders.This note was completed by: Shavonne Mays RN [facility] NURSING PROG O ID: [id number] Author: Paty (Rn) FRANSICO Cardoza Service: Nursing Author Type: Registered Nurse Type: Nursing Progress Note Filed: 08/19/2017 3:26 PM Note Text: Biliary tube that is the latest tube draining baldwin and rust colored.} [facility] NURSING PROG HNO ID: [id number] thor: Latanya (Rn) MOUSTAPHA Larsenervice: RadiologyAuthor Type: Registered NurseType: Nursing Progress NoteFiled: 08/19/2017 11:47 AMNote Text:PATIENT EDUCATION TOPIC: PROCEDURE / SURGERY: Procedure/Surgery: PTHCPATIENT NAME: Rocio BrianDary: [id number] LOCATION: [place] [address]READINES S TO LEARNCOGNITIVE ABILITY: Alert and orientedMOTIVATION TO LEARN: EagerInterestedFAMILY SUPPORT: Unable to assess - Family not presentINSTRUCTION PROVIDED TO: PatientPATIENT LEARNS BEST BY: Individual InstructionWritten Instruction - Hand-outsVerbal InstructionFACTORS AFFECTING LEARNING: NonePHYSICAL LIMITATIONS AFFECTING LEARNING: NoneLEARNING RESPONSEDIAGNOSIS: ADULT: Duodenal massPATIENT/FAMILY RESPONSE: Verbalizes understanding of: TITT-[id number]-B orrect actions to take to reduce post procedurecomplicationsPRE-CT OCEDURE INSTRUCTIONS-Correct action to take to follow pre-procedureinstructionsMET HOD OF INSTRUCTION: Individual instructionWritten instruction - handoutsVerbal instructionFOLLOW-UP PLAN: Follow-up with Primary CareINSTRUCTIONAL AIDS USED: NASUPPLEMENTAL MATERIAL PROVIDED TO PATIENT: NoneREFERRAL (RECOMMENDATION): NoneElectronically Signed By: Latanya Larsen RN [facility] NURSING PROG HNO ID: [id number] thor: Jennifer KenRn) MOUSTAPHA Websterervice: (none)Author Type: Registered NurseType: Nursing Progress NoteFiled: 08/19/2017 3:24 AMNote Text: Nursing Progress NotePatient Name: Rocio JacksonN: [id number] Location: [place] [address]/[id number] ____ Pt with mild abd pain of 3 or less tonight. Tylenol controlling. Ptaware if needed may have pain pills. Accordian drain flushed at 2100 perorder for positive return of sterile NS and brown liquid.This note was completed by: Jennifer Webster RN Normal [facility] NUTRITIONon 08-19-2017 NUTRITION HNO ID: [id number] thor: Alise Segura) BarsaService: Nutrition TherapyAuthor Type: [...] 87 kgResting Metabolic Rate: 1661Estimated kilocalorie needs: 3672-4861 kilocalories determined by 25-28kcal/kgEstimated protein needs:113 - [...] kg (192 lb) SpO2 98% BMI 29.19 kg/t1Sovwrz Labs GLUC 144*BUN 7*CREAT 0.58*NA 142K 3.4*CHLOR [...] 5,000 Units SUBCUTANEOUS q 8 Hphenol 1 [place] (CHLORASEPTIC) 1 [place] MUCOUS MEMBRANE (TOPICAL MOUTH ANDTHROAT) q 2 [...] assistance and weekends please page theGroup Pager [phone] [facility] PROGRESSon 08-19-2017 PROGRESS HNO ID: [id number] thor: Khadar Guo: General SurgeryAuthor Type: PhysicianType: [...] feeds.Khadar Duffy MDFebruary 2017 9:56 PM Normal [facility] Phosphoruson 08-19-2017 Phosphate 1.9 mg/dL Low 2.5-4.5 [facility] Comment on above: Performed By: #### C BC, CMP, MG1, PHOS ####[facility] [place], [place] [phone] CASE MANAGEMon 08-18-2017 CASE MANAGEM HNO ID: [id number] thor: Alexandrea (Rn) MOUSTAPHA Tomaservice: Care ManagementAuthor Type: Registered NurseType: Care Mgt Progress NoteFiled: 08/18/2017 2:30 PMNote Text:MULTIDISCIPLINARY ROUNDSSERVICE DATE: 08/18/2017 ADMISSION DATE: 08/13/2017SERVICE TIME: 2:27 PM ANTICIPATED D/C DATE: 1-3 daysProblem List:ACTIVE PROBLEM LISTDuodenal ObstructionSevere Protein-Calorie Malnutrition (Hcc)Attendees Present at Rounds:Feed Project Engineer: Roderick Nurse: Laura Discussed on Rounds:Discharge NeedsPlan [...] August 18, 2017 : 2:27 PM CSN: [id number] Normal [facility] CBCon 08-18-2017 Erythrocyte distribution width Auto Ratio (RBC) 15.7 % High 11.5-15.0 [facility] Comment on above: Performed By: #### P T, PTT, AMYL, CMP, LIPA, PHOS ####[place] [phone]#### TRANSF ####[place] [phone] Erythrocytes (RBC) 3.08 10*6/uL Low 4.20-6.00 [facility] Comment on above: Performed By: #### P T, PTT, AMYL, CMP, LIPA, PHOS ####[phone]#### TRANSF ####[place] [phone] Hematocrit (HCT) 26.6 % Low 39.0-51.0 [facility] Comment on above: Performed By: #### P T, PTT, AMYL, CMP, LIPA, PHOS ####[place] [address]#### TRANSF ####[place] [phone] Hemoglobin mass conc (Bld) 8.6 g/dL Low 13.0-17.0 [facility] Comment on above: Performed By: #### P T, PTT, AMYL, CMP, LIPA, PHOS ####[place] [address]#### TRANSF ####[place] [phone] MCH 27.9 pG Normal 26.0-34.0 [facility] Comment on above: Performed By: #### P T, PTT, AMYL, CMP, LIPA, PHOS ####[place] [address]#### TRANSF ####[place] [phone] MCHC mass conc (RBC) 32.3 g/dL Normal 30.5-36.0 [facility] Comment on above: Performed By: #### P T, PTT, AMYL, CMP, LIPA, PHOS ####[place] [address]#### TRANSF ####[place] [phone] MCV 86.4 fL Normal 80.0-100.0 [facility] Comment on above: Performed By: #### P T, PTT, AMYL, CMP, LIPA, PHOS ####[place] [address]#### TRANSF ####[place] [phone] Platelet mean volume (PMV) 10.2 fL Normal 9.0-12.7 [facility] Comment on above: Performed By: #### P T, PTT, AMYL, CMP, LIPA, PHOS ####[place] [phone]#### TRANSF ####[address] [phone] Platelets 310 10*3/uL Normal 150-400 [facility] Comment on above: Performed By: #### P T, PTT, AMYL, CMP, LIPA, PHOS ####[place] [phone]#### TRANSF ####[place] [phone] WBC (Leukocytes) 4.87 10*3/uL Normal 3.70-11.00 [facility] Comment on above: Performed By: #### P T, PTT, AMYL, CMP, LIPA, PHOS ####[place] [phone]#### TRANSF ####[place] [phone] CONSULT PROGon 08-18-2017 CONSULT PROG HNO ID: [id number] thor: Linda ([facility]) MacamarcelloaService: GastroenterologyAuthor Type: Nurse PractitionerType: Consult Progress NoteFiled: 08/18/2017 1:23 PMNote Text:CONSULT PROGRESS NOTESERVICE DATE: 08/18/2017SERVICE TIME: 1:20 PMCONSULTING SERVICE: GISubjectiveINTERVAL HPI: No acute events overnight. 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.Current hospital medications:insulin lispro injection (rapid acting) (HumaLOG) SUBCUTANEOUS w [place] HSphenol 1 [place] (CHLORASEPTIC) [address] [place] MUCOUS MEMBRANE (TOPICAL MOUTH ANDTHROAT) q 2 [...] tube placement for feeding-continue to followJudith Weber [facility] GastroenterologyThank you for allowing us to participate in the care of this patient.Please call with questions or concerns.SIGNATURE: Linda Avalos CNP PATIENT NAME: Rocio Sibley: August 18, 2017 : 1:20 PM PAGER: [phone] Normal [facility] Comp Metabolic Panelon 08-18 Alanine aminotransferase (ALT) 66 U/L High 5-50 [facility] Comment on above: Performed By: #### P T, PTT, AMYL, CMP, LIPA, PHOS ####[place] [address]#### TRANSF ####[address] Av[address] [place] [phone] Albumin 2.3 g/dL Low 3.5-5.0 [facility] Comment on above: Performed By: #### P T, PTT, AMYL, CMP, LIPA, PHOS ####[place] [address]#### TRANSF ####[place] [phone] Alkaline phosphatase (ALP) 261 U/L High 40-150 [facility] Comment on above: Performed By: #### P T, PTT, AMYL, CMP, LIPA, PHOS ####[place] [address]#### TRANSF ####[address] [place] [phone] Anion gap 8 mmol/L Low 9-18 [facility] Comment on above: Performed By: #### P T, PTT, AMYL, CMP, LIPA, PHOS ####[place] [address]#### TRANSF ####[place] [phone] Aspartate aminotransferase (AST) 32 U/L Normal 7-40 [facility] Comment on above: Performed By: #### P T, PTT, AMYL, CMP, LIPA, PHOS ####[place] [address]#### TRANSF ####[place] [phone] Bilirubin (total) 0.9 mg/dL Normal 0.0-1.5 [facility] Comment on above: Performed By: #### P T, PTT, AMYL, CMP, LIPA, PHOS ####[place] [address]#### TRANSF ####[place] [phone] Calcium 7.2 mg/dL Low 8.5-10.5 [facility] Comment on above: Result Comment: Revi ewed Performed By: #### P T, PTT, AMYL, CMP, LIPA, PHOS ####[place] [address]#### TRANSF ####[place] [phone] Chloride 112 mmol/L High 98-110 [facility] Comment on above: Performed By: #### P T, PTT, AMYL, CMP, LIPA, PHOS ####[place] [address]#### TRANSF ####[address] [place] [phone] CO2 28 mmol/L Normal 23-32 [facility] Comment on above: Performed By: #### P T, PTT, AMYL, CMP, LIPA, PHOS ####[place] [address]#### TRANSF ####[address] [place] [phone] Creatinine 0.71 mg/dL Normal 0.70-1.40 [facility] Comment on above: Performed By: #### P T, PTT, AMYL, CMP, LIPA, PHOS ####[address]#### TRANSF ####[place] [phone] eGFR (non-black) mL/min/{1.73_m2} Normal >60 [facility] Comment on above: Performed By: #### P T, PTT, AMYL, CMP, LIPA, PHOS ####[place] [address]#### TRANSF ####[place] [phone] Glucose mass conc 160 mg/dL High 65-100 [facility] Comment on above: Performed By: #### P T, PTT, AMYL, CMP, LIPA, PHOS ####[place] [address]#### TRANSF ####[place] [phone] Potassium molar conc 3.9 mmol/L Normal 3.5-5.0 [facility] Comment on above: Result Comment: Revi ewed Performed By: #### P T, PTT, AMYL, CMP, LIPA, PHOS ####[place] [address]#### TRANSF ####[place] [phone] Protein 5.5 g/dL Low 6.0-8.4 [facility] Comment on above: Performed By: #### P T, PTT, AMYL, CMP, LIPA, PHOS ####[place] [phone]#### TRANSF ####[place] [phone] Sodium 148 mmol/L High 135-146 [facility] Comment on above: Performed By: #### P T, PTT, AMYL, CMP, LIPA, PHOS ####[place] [address]#### TRANSF ####[place] [phone] Urea nitrogen 13 mg/dL Normal 10-25 [facility] Comment on above: Performed By: #### P T, PTT, AMYL, CMP, LIPA, PHOS ####[place] [address]#### TRANSF ####[phone] Magnesiumon 08-18-2017 Magnesium 2.1 mg/dL Normal 1.7-2.6 [facility] Comment on above: Performed By: #### P T, PTT, AMYL, CMP, LIPA, PHOS ####[address]#### TRANSF ####[place] [phone] NUTRITIONon 08-18-2017 NUTRITION HNO ID: [id number] thor: Alise Segura) BarsaService: Nutrition TherapyAuthor Type: [...] acting) (HumaLOG) SUBCUTANEOUS w [place] HSphenol 1 [place] (CHLORASEPTIC) 1 [place] MUCOUS MEMBRANE (TOPICAL MOUTH ANDTHROAT) q 2 [...] 08/15/17 0659 08/15/17 0700 - 08/16/17 0659 [id number] - 08/17/17 0659 08/17/17 07 - 08/18/17 [...] assistance and weekends please page theGroup Pager [phone] [facility] PROGRESSon 08-18-2017 PROGRESS HNO ID: [id number] thor: Khadar DuffyService: General SurgeryAuthor Type: PhysicianType: Progress NotesFiled: 08/18/2017 6:11 PMNote Text:PROGRESS NOTES - SURGICAL SERVICESPATIENT NAME: Rocio JacksonMRN: [id number] HISTORY OF PRESENT ILLNESS:No acute events overnight. [...] care: IS, OOBDAVIT KOCHARYAN, MD (Res)General SurgeryPager: [phone]*On weekends or nights (after 1800) please contact [...] understand.Khadar Duffy MDFebruary 2017 6:11 PM Normal [facility] Phosphoruson 08-18-2017 Phosphate 2.2 mg/dL Low 2.5-4.5 [facility] Comment on above: Performed By: #### P T, PTT, AMYL, CMP, LIPA, PHOS ####[facility] [place], [place] [phone]#### TRANSF ####[facility] [address] [place], [place] [phone] ANES Ila 08-17-2017 ANES POST HNO ID: [id number] thor: Reba ValleSer: AnesthesiologyAuthor Type: AnesthesiologistType: Anesthesia [...] 2017 : 5:41 PM PAGER/CONTACT #: [facility] ANES PREOPon 08-17-2017 ANES PREOP HNO ID: [id number] thor: Reba ValleService: AnesthesiologyAuthor Type: AnesthesiologistType: Anesthesia PreOpFiled: 08/17/2017 3:21 PMNote Text:REGIONAL ANESTHESIOLOGY DAY OF SURGERY NOTEPATIENT NAME: Rocio JacksonMRN: [id number]: 1955Procedure(s) (LRB):ERCP (N/A)Surgeon(s):Srinath NavaEstimated body mass index [...] Date- ANGIOPLASTY HX 05/15/2011 2 stents s/p [place];[facility]- CHOLECYSTECTOMY 08/11/2017 [facility]- PICC LINE INSERT/CONSULT 08/16/2017No family history on file.Social History:Social HistorySubstance Use Topics- Smoking status: Former Smoker Types: Cigarettes Quit date: 2010- Smokeless tobacco: Never Used- Alcohol use 1.5 oz/week 1 Cans of Beer (12oz) per week Comment: occasional beerNo current facility-administered medications on file prior to encounter.No current outpatient prescriptions on file prior to encounter.Inpatient medications reviewed in [facility].I have interviewed and examined the patient. I have reviewed the medicalrecord and/or the pre-anesthesia evaluation, pertinent labs, and testresults.Significant changes in the patient's condition since the History andPhysical, not otherwise documented in primary service progress notes: NoThis contains updated information obtained within 48 hours ofSurgery/Procedure.SIGNATSHAHLA E: Reba Valle MD PATIENT NAME: Rocio TorresschDATE: August 17, 2017 : 3:20 PM PAGER/CONTACT #: Normal [facility] BRIEF OP NOTon 08-17-2017 BRIEF OP NOT HNO ID: [id number] thor: Srinath Padillae: GastroenterologyAuthor Type: PhysicianType: Brief Op NoteFiled: 08/17/2017 5:07 PMNote Text:Please see procedure report under procedure tabIMP:Duodenal mass, malignant with D2 stenosis involving area of papillaS/P dilation to 15mm balloonRecs:Clear liquid diet, may consider EGD assisted duodenal tube placement forfeedingUnable to cannulate due to sharp angulation, can have PTC with exchange tointernal endoscopically Normal [facility] CASE MGT INIT ASSon 2017 CASE MGT INIT [facility] HNO ID: [id number] thor: Alexandrea (Rn) MOUSTAPHA Tomaservice: Care ManagementAuthor Type: Registered NurseType: Care Mgt Initial AssessmentFiled: 08/17/2017 2:14 PMNote Text:CARE MANAGEMENT: ASSESSMENT AND DISCHARGE PLANSERVICE DATE: 08/17/2017SERVICE TIME: 2:11 PMPRIMARY CARE PHYSICIAN:No primary care provider on file.Phone: NoneADMISSION STATUS: InpatientPOTENTIAL DISCHARGE PLANSTo Be DeterminedPatient/Representa tive Stated Goals: I am having a test this afternoon.Needs Prior to Discharge: To Be DeterminedHealth Insurance: [facility] Arrangement: HomeLives With: 2 adult childrenFinancial Resources: N/APrimary Contact:Extended Emergency Contact InformationPrimary Emergency Contact: Oewn Muller: [place], [place] [address]Lkdj Hjqzusst: SiblingSupportive: YesOther Important Patient Contacts: NoneCAREGIVER ASSESSMENT:Caregiver [...] days? NoHas the Patient Been in a Chcf Facility in the Past 30 days? NoFREEDOM [...] 17, 2017 : 2:07 PM PAGER/CONTACT #: [phone] Normal [facility] CBCon 08-17-2017 Erythrocyte distribution width Auto Ratio (RBC) 15.5 % High 11.5-15.0 [facility] Comment on above: Performed By: #### P T, PTT, AMYL, CMP, LIPA, PHOS ####[place] [address]#### TRANSF ####[place] [phone] Erythrocytes (RBC) 3.18 10*6/uL Low 4.20-6.00 [facility] Comment on above: Performed By: #### P T, PTT, AMYL, CMP, LIPA, PHOS ####[place] [address]#### TRANSF ####[place] [phone] Hematocrit (HCT) 27.4 % Low 39.0-51.0 [facility] Comment on above: Performed By: #### P T, PTT, AMYL, CMP, LIPA, PHOS ####[place] [address]#### TRANSF ####[place] [phone] Hemoglobin mass conc (Bld) 9.1 g/dL Low 13.0-17.0 [facility] Comment on above: Performed By: #### P T, PTT, AMYL, CMP, LIPA, PHOS ####[place] [address]#### TRANSF ####[place] [phone] MCH 28.6 pG Normal 26.0-34.0 [facility] Comment on above: Performed By: #### P T, PTT, AMYL, CMP, LIPA, PHOS ####[place] [address]#### TRANSF ####[place] [phone] MCHC mass conc (RBC) 33.2 g/dL Normal 30.5-36.0 [facility] Comment on above: Performed By: #### P T, PTT, AMYL, CMP, LIPA, PHOS ####[place] [address]#### TRANSF ####[place] [phone] MCV 86.2 fL Normal 80.0-100.0 [facility] Comment on above: Performed By: #### P T, PTT, AMYL, CMP, LIPA, PHOS ####[place] [address]#### TRANSF ####[place] [phone] Platelet mean volume (PMV) 10.0 fL Normal 9.0-12.7 [facility] Comment on above: Performed By: #### P T, PTT, AMYL, CMP, LIPA, PHOS ####[place] [address]#### TRANSF ####[place] [phone] Platelets 319 10*3/uL Normal 150-400 [facility] Comment on above: Performed By: #### P T, PTT, AMYL, CMP, LIPA, PHOS ####[place] [address]#### TRANSF ####[place] [phone] WBC (Leukocytes) 7.02 10*3/uL Normal 3.70-11.00 [facility] Comment on above: Performed By: #### P T, PTT, AMYL, CMP, LIPA, PHOS ####[facility] [place], [place] [phone]#### TRANSF ####[facility] [address] [place], [place] [phone] CONSULT PROGon 08-17-2017 CONSULT PROG HNO ID: [id number] thor: Jessee Lottervice: Cardiovascular DiseaseAuthor Type: PhysicianType: Consult Progress NoteFiled: 08/18/2017 10:29 PMNote Text:PROGRESS NOTE CARDIOLOGY SERVICESERVICE DATE: August 17, 2017SERVICE TIME: 12:48 PMASSESSMENT/PLANActive Problems:Atrial fibrillation. Persistent AF, ventricular rates +/- 100Heparin infusion is off. Inr was elevated, received vitamin K prior toprocedure. Today 1.0.s/p ERCP yesterdayPlan:Continue metoprolol.Spoke to surgical [facility]STAIRS MAID Boubacar Espinoza. ->kimberley is for PTHC tomorrow.Will [...] edema.PULSES: Peripheral pulses present.MEDICATIONS:Current Facility-Administered Medications:phenol 1 [place] (CHLORASEPTIC) 1 [place] MUCOUS MEMBRANE (TOPICAL MOUTH ANDTHROAT) q 2 [...] 2017 : 12:48 PM PAGER/CONTACT #: Normal [facility] Comp Metabolic Panelon 08-17 Alanine aminotransferase (ALT) 90 U/L High 5-50 [facility] Comment on above: Performed By: #### P T, PTT, AMYL, CMP, LIPA, PHOS ####[place] [phone]#### TRANSF ####[place] [phone] Albumin 2.5 g/dL Low 3.5-5.0 [facility] Comment on above: Performed By: #### P T, PTT, AMYL, CMP, LIPA, PHOS ####[place] [phone]#### TRANSF ####[place] [phone] Alkaline phosphatase (ALP) 304 U/L High 40-150 [facility] Comment on above: Performed By: #### P T, PTT, AMYL, CMP, LIPA, PHOS ####[place] [phone]#### TRANSF ####[place] [phone] Anion gap 12 mmol/L Normal 9-18 [facility] Comment on above: Performed By: #### P T, PTT, AMYL, CMP, LIPA, PHOS ####[place] [address]#### TRANSF ####[place] [phone] Aspartate aminotransferase (AST) 36 U/L Normal 7-40 [facility] Comment on above: Performed By: #### P T, PTT, AMYL, CMP, LIPA, PHOS ####[place] [address]#### TRANSF ####[place] [phone] Bilirubin (total) 1.1 mg/dL Normal 0.0-1.5 [facility] Comment on above: Performed By: #### P T, PTT, AMYL, CMP, LIPA, PHOS ####[place] [address]#### TRANSF ####[place] [phone] Calcium 8.2 mg/dL Low 8.5-10.5 [facility] Comment on above: Performed By: #### P T, PTT, AMYL, CMP, LIPA, PHOS ####[place] [address]#### TRANSF ####[place] [phone] Chloride 110 mmol/L Normal 98-110 [facility] Comment on above: Result Comment: Revi ewed Performed By: #### P T, PTT, AMYL, CMP, LIPA, PHOS ####[place] [address]#### TRANSF ####[place] [phone] CO2 26 mmol/L Normal 23-32 [facility] Comment on above: Performed By: #### P T, PTT, AMYL, CMP, LIPA, PHOS ####[place] [address]#### TRANSF ####[place] [phone] Creatinine 0.68 mg/dL Low 0.70-1.40 [facility] Comment on above: Performed By: #### P T, PTT, AMYL, CMP, LIPA, PHOS ####[place] [address]#### TRANSF ####[place] [phone] eGFR (non-black) mL/min/{1.73_m2} Normal >60 [facility] Comment on above: Performed By: #### P T, PTT, AMYL, CMP, LIPA, PHOS ####[address]#### TRANSF ####[place] [phone] Glucose mass conc 158 mg/dL High 65-100 [facility] Comment on above: Performed By: #### P T, PTT, AMYL, CMP, LIPA, PHOS ####[address]#### TRANSF ####[place] [phone] Potassium molar conc 3.2 mmol/L Low 3.5-5.0 [facility] Comment on above: Performed By: #### P T, PTT, AMYL, CMP, LIPA, PHOS ####[place] [address]#### TRANSF ####[place] [phone] Protein 6.1 g/dL Normal 6.0-8.4 [facility] Comment on above: Performed By: #### P T, PTT, AMYL, CMP, LIPA, PHOS ####[place] [address]#### TRANSF ####[place] [phone] Sodium 148 mmol/L High 135-146 [facility] Comment on above: Result Comment: Revi ewed Performed By: #### P T, PTT, AMYL, CMP, LIPA, PHOS ####[place] [address]#### TRANSF ####[place] [phone] Urea nitrogen 14 mg/dL Normal 10-25 [facility] Comment on above: Performed By: #### P T, PTT, AMYL, CMP, LIPA, PHOS ####[place] [address]#### TRANSF ####[phone] Magnesiumon 08-17-2017 Magnesium 2.4 mg/dL Normal 1.7-2.6 [facility] Comment on above: Performed By: #### P T, PTT, AMYL, CMP, LIPA, PHOS ####[place] [address]#### TRANSF ####[place] [phone] NUTRITIONon 08-17-2017 NUTRITION HNO ID: [id number] thor: Alise (Rd) BarsaService: Nutrition TherapyAuthor Type: [...] 87 kgResting Metabolic Rate: 1661Estimated kilocalorie needs: 8424-0229 kilocalories determined by 25-28kcal/kgEstimated protein needs:113 - 130 grams determined by 1.3-1.5 g/kg DosingweightEstimated fluid needs: 2200 - 2400 milliliters based on 1 mL per kcalAdmission Weight: 87.4 kg (192 lb 9.6 oz)Current Weight: 87.4 kg (192 lb 9.6 oz)Body mass index is 29.28 kg/(m2). overweightALLERGIESNo Known AllergiesCurrent Facility-Administered Medications:phenol 1 [place] (CHLORASEPTIC) 1 [place] MUCOUS MEMBRANE (TOPICAL MOUTH ANDTHROAT) q 2 [...] assistance and weekends please page theGroup Pager -[phone] [facility] PROGRESSon 08-17-2017 PROGRESS HNO ID: [id number] thor: Khadar Guo: General SurgeryAuthor Type: PhysicianType: Progress NotesFiled: 08/17/2017 2:42 PMNote Text:PROGRESS NOTES - SURGICAL SERVICESPATIENT NAME: Rocio HayesN: [id number] HISTORY OF PRESENT ILLNESS:No acute events overnight. [...] improved.Khadar Duffy MDFebruary 2017 2:42 PM Normal [facility] Phosphoruson 08-17-2017 Phosphate 2.3 mg/dL Low 2.5-4.5 [facility] Comment on above: Performed By: #### P T, PTT, AMYL, CMP, LIPA, PHOS ####[facility] [place], [place] [phone]#### TRANSF ####[facility] [address] [place], [place] [phone] Protimeon 08-17-2017 INR Coag RelTime (Bld) 1.0 {INR} Normal 0.9-1.3 [facility] Comment on above: Result Comment: Tayler min K Antagonist (VKA) Therapeutic Range: INR 2 to 3 (Target INR of 2.5)Note: For patients treated with VKA drugs, such as warfarin, the [employer] 2012 Guideline recommends [...] T, PTT, AMYL, CMP, LIPA, PHOS ####[address] [phone]#### TRANSF ####[place] [address] [place], [place] [phone] PT Sec 10.6 sec Normal 9.7-13.0 [facility] Comment on above: Performed By: #### P T, PTT, AMYL, CMP, LIPA, PHOS ####[address] [phone]#### TRANSF ####[address] [phone] XR ERCP READ ONLYon 08-17-19 18 XR [...] Kerma: 134.0 mGyDose Area Product (DAP): 0.0 mGy*dcR3Ryrxnj time: 6:57 min:secRESULT: Images demonstrate an endoscope with contrast administration. A small amount of contrast is seen. The biliary system is not well opacified.IMPRESSION: Fluoroscopic assistance for ERCP procedureTranscriptionist: NII Transcribe Date/Time: Aug 18 2017 8:33ADictated by : REJI PATEL MDThis examination was interpreted and the report reviewed and electronically signed by: REJI PATEL MD on Aug 18 2017 8:34AM [id number] Normal [facility] CBCon 08-16-2017 Erythrocyte distribution width Auto Ratio (RBC) 15.4 % High 11.5-15.0 [facility] Comment on above: Performed By: #### P T, PTT, AMYL, CMP, LIPA, PHOS ####[place] [address]#### TRANSF ####[place] [phone] Erythrocytes (RBC) 3.49 10*6/uL Low 4.20-6.00 [facility] Comment on above: Performed By: #### P T, PTT, AMYL, CMP, LIPA, PHOS ####[place] [address]#### TRANSF ####[place] [phone] Hematocrit (HCT) 29.9 % Low 39.0-51.0 [facility] Comment on above: Performed By: #### P T, PTT, AMYL, CMP, LIPA, PHOS ####[place] [address]#### TRANSF ####[place] [phone] Hemoglobin mass conc (Bld) 9.8 g/dL Low 13.0-17.0 [facility] Comment on above: Performed By: #### P T, PTT, AMYL, CMP, LIPA, PHOS ####[place] [address]#### TRANSF ####[place] [phone] MCH 28.1 pG Normal 26.0-34.0 [facility] Comment on above: Performed By: #### P T, PTT, AMYL, CMP, LIPA, PHOS ####[place] [address]#### TRANSF ####[place] [phone] MCHC mass conc (RBC) 32.8 g/dL Normal 30.5-36.0 [facility] Comment on above: Performed By: #### P T, PTT, AMYL, CMP, LIPA, PHOS ####[place] [address]#### TRANSF ####[place] [phone] MCV 85.7 fL Normal 80.0-100.0 [facility] Comment on above: Performed By: #### P T, PTT, AMYL, CMP, LIPA, PHOS ####[place] [address]#### TRANSF ####[place] [phone] Platelet mean volume (PMV) 10.9 fL Normal 9.0-12.7 [facility] Comment on above: Performed By: #### P T, PTT, AMYL, CMP, LIPA, PHOS ####[place] [address]#### TRANSF ####[place] [phone] Platelets 335 10*3/uL Normal 150-400 [facility] Comment on above: Performed By: #### P T, PTT, AMYL, CMP, LIPA, PHOS ####[place] [address]#### TRANSF ####[facility] [address] [place], [place] [phone] WBC (Leukocytes) 11.42 10*3/uL High 3.70-11.00 [facility] Comment on above: Performed By: #### P T, PTT, AMYL, CMP, LIPA, PHOS ####[place] [address] [place], [place] [phone]#### TRANSF ####[facility] [address] [place], [place] [phone] CONSULTon 08-16-2017 CONSULT HNO ID: [id number] thor: Jessee Lottervice: Cardiovascular DiseaseAuthor Type: PhysicianType: [...] 12.5 BIDPlan:Switch to metoprolol 25 TID.Monitor.CAD. Remote [place], PCI in 2013.No angina.Duodenal mass and obstructive jaundices/p perc drain placement.-plan is for ERCP with possible duodenal stent placement tomorrow.[facility] STAFF PHYSICIAN NOTE OF PERSONAL [...] of the patient's care.STAFF PHYSICIAN: Jessee Mayorga [facility]: August 16, 2017TIME OF SERVICE: 4:36 [facility] COMPLAINT: abdominal painRocio Jackson is a 62 year old male, he lives in [facility]. 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 Followed by general surgery.s/p [...] Date- ANGIOPLASTY HX 05/15/2011 2 stents s/p [place];[facility]- CHOLECYSTECTOMY 08/11/2017 [facility]- PICC LINE INSERT/CONSULT 08/16/2017Past Family History:non contributorySocial [...] 2017 : 3:56 PM PAGER/CONTACT #: Normal [facility] Magnesiumon 08-16-2017 Magnesium 2.3 mg/dL Normal 1.7-2.6 [facility] Comment on above: Performed By: #### P T, PTT, AMYL, CMP, LIPA, PHOS ####[facility] [place], [place] [phone]#### TRANSF ####[facility] [address] [place] [phone] NURSING PROGon 08-16-2017 NURSING PROG HNO ID: [id number] thor: Nolvia KenRn) Genevieve, RNService: PICC TeamAuthor Type: Registered NurseType: Nursing Progress NoteFiled: 08/16/2017 8:05 AMNote Text:PICC/VASCULAR ACCESS PROGRESS NOTESERVICE DATE: 08/16/2017SERVICE TIME: 8:00 amPICC line ordered, heparin gtt currently on hold, plan for patient toreceive TPN, Double lumen chloraguard PICC recommended. Will continue tofollow.SIGNATURE: Nolvia Vallejo RN PATIENT NAME: Rocio Sibley: August 16, 2017 : 8:03 AM PAGER/CONTACT #: [phone] [facility] NURSING PROG HNO ID: [id number] thor: Shavonne Arreola) [place], RNService: NursingAuthor Type: Registered NurseType: Nursing Progress NoteFiled: 08/16/2017 6:50 PMNote Text: Nursing Progress NotePatient Name: Rocio HayesN: [id number] Location: [address]/ZX-MS2O-15 ____Daily Note:0730: SROC alpha paged re: PT/INR [...] gtt and admin vitamin K. Spoke with SPEECH TEACHER for GI service,repeat PT/INR ordered for 1200 tomorrow 08/17 prior to ERCP scheduled [id number], and if heparin gtt restarted prior to [...] 25 mg PO per new order, HR [id number]'s. SROC paged for chlorasetic spray and throat lozenge for pt c/othroat irritation from NGT.1800: Blood glucose 139, no SSI coverage required. Safety maintained.Pt resting in bed.This note was completed by: Shavonne Mays RN [facility] NURSING PROG HNO ID: [id number] thor: Deneen (Rn) Melanie, RNService: (none)Author Type: Registered NurseType: Nursing Progress NoteFiled: 08/16/2017 4:44 AMNote Text: Nursing Progress NotePatient Name: Rocio JacksonMRN: [id number] Location: [place] [address]/[id number] ____Daily Note:Late entry 08/15 Labs drawn for start of heparin drip. INR2.0 Order to notify team when INR equal to or greater than 2.0.0350: Team notified that INR 2.0. Order to hold heparin drip until morninglabs back with INR results. Will continue to monitor.0428: Text page to surgery for bladder scan of 665 ml and change in NGcolor from bile to brownish nou0643: SROC up to see and assess pt. Continue to monitor bladder as pt ishaving no symptoms of discomfort at this time. Wait to start heparin dripuntil Am labs. Continue to monitor NG output.This note was completed by: Deneen Navarro RN [facility] PLAN OF CAREon 08-16-2017 PLAN OF CARE HNO ID: [id number] thor: Gissell (Griselda) Riyaervice: GastroenterologyAuthor Type: Nurse [...] questions or concerns.Gissell Smithk, CNPNorthshore GastroenterologyOffice: Cell: [facility] PROCEDUREon 08-16-2017 PROCEDURE HNO ID: [id number] thor: Luis KenRnLyric Shaffer, RNService: PICC TeamAuthor [...] Discussion: Shayan Shaffer RNCATHETER PLACEMENTBrand: Cholkettygard Lot: [id number] of Lumens: 2Type of PICC: Power Injectable [...] NoneCOMPLICATIONS: NonePatient Education Materials: Placed in chartThe [facility] Central Line Insertion checklist, attached to theCentral Line-Associated Bloodstream Infection Prevention Policy, wasutilized during this procedure.QUESTIONS or PROBLEMS: Page [phone] weekendSIGNATURE: Luis Shaffer RN PATIENT NAME: Rocio TorresschDATE: August 16, 2017 : 8:35 AM PAGER/CONTACT PHONE: [facility] PROGRESSon 08-16-2017 PROGRESS HNO ID: [id number] thor: Lourdes Earle: GastroenterologyAuthor Type: PhysicianType: Progress NotesFiled: 08/16/2017 6:45 PMNote Text:[facility] Progress NoteSERVICE DATE: August 16, 2017SUBJECTIVENo [...] 95%Weight:Height:Body mass index is 29.28 kg/(m2).GENERAL: NAD, [id number]: PERRLA, EOMI, normal OPCV: RRR, normal S1, [...] on [facility] for allowing us to participate in the care of this patient.Please call with any further questions or concerns.Lourdes Ferrari MDCrystal Downs [facility] Club [facility]astroenterology#: [phone]: Lourdes Ferrari MD PATIENT NAME: Rocio JacksonDATE: August 16, 2017 : 2:42 PM PAGER: [phone] [facility] PROGRESS HNO ID: [id number] thor: Khadar Chaneye: General SurgeryAuthor Type: PhysicianType: Progress NotesFiled: 08/16/2017 1:47 PMNote Text: SURGERY INPATIENT PROGRESS NOTESName: Rocio JacksonMRN: [id number] and Plan:62 year old male with near-obstructing [...] lb 9.6 oz) SpO2 92% BMI 29.28 kg/i0Hpertc/Output Summary (Last 24 hours) at 08/16/17 0835Last data filed at 08/16/17 0631 Gross per 24 hourIntake 3079 mlOutput 2640 mlNet 439 mlGeneral Appearance: NADAbdomen: soft, non-tender, mild distention. Drains in place, biliousoutput.Akbar Lassiter MDGENECLEVELAND CLINIC MARYMOUNT [facility] SURGERY PGY-48:35 AM08/16/2017*A review of daily [...] tomorrow.Khadar Duffy MDFebruary 2017 1:47 PM [facility] PT EDon 08-16-2017 PT ED HNO ID: [id number] thor: Luis (Rn) Edmund, RNService: PICC TeamAuthor Type: Registered NurseType: Patient EducationFiled: 08/16/2017 8:34 AMNote Text:PATIENT EDUCATION TOPIC: PROCEDURE / SURGERY: Procedure/Surgery: PICCinsertion under US guidancePATIENT NAME: Rocio JacksonMRN: [id number] LOCATION: [place] [address]/[id number] S TO LEARNCOGNITIVE ABILITY: Alert and orientedMOTIVATION TO LEARN: EagerInterestedFAMILY SUPPORT: High - Very involved in pt careINSTRUCTION PROVIDED TO: Patient and Family memberPATIENT LEARNS BEST BY: Individual InstructionVerbal InstructionFACTORS AFFECTING LEARNING: NonePHYSICAL LIMITATIONS AFFECTING LEARNING: NoneLEARNING RESPONSEDIAGNOSIS: ADULT: Duodenal obstructionPATIENT/FAMILY RESPONSE: Verbalizes understanding of: KFYS-[id number]-P orrect actions to take to reduce post procedurecomplicationsPRE-CT OCEDURE INSTRUCTIONS-Correct action to take to follow pre-procedureinstructionsMET HOD OF INSTRUCTION: Individual instructionVerbal instructionFOLLOW-UP PLAN: Patient instructed to call with any further issuesFollow-up with Primary CareINSTRUCTIONAL AIDS USED: NASUPPLEMENTAL MATERIAL PROVIDED TO PATIENT: NoneREFERRAL (RECOMMENDATION): NoneElectronically Signed By: Luis Shaffer RN [facility] Phosphoruson 08-16-2017 Phosphate 2.1 mg/dL Low 2.5-4.5 [facility] Comment on above: Performed By: #### P T, PTT, AMYL, CMP, LIPA, PHOS ####[facility] [place], [place] [phone]#### TRANSF ####[facility] [place], [place] [phone] Protimeon 08-16-2017 INR Coag RelTime (Bld) 2.0 {INR} High 0.9-1.3 [facility] Comment on above: Result Comment: [place] min K Antagonist (VKA) Therapeutic Range: INR 2 to 3 (Target INR of 2.5)Note: For patients treated with VKA drugs, such as warfarin, the [employer] 2012 Guideline recommends [...] al. Chest 2012, 141:7S-47SNishneto CENTENO, et al. [facility] 2017, 70: 252-289 Performed By: #### P T, PTT, AMYL, CMP, LIPA, PHOS ####[address] [phone]#### TRANSF ####[address] [phone] PT Sec 19.5 sec High 9.7-13.0 [facility] Comment on above: Performed By: #### P T, PTT, AMYL, CMP, LIPA, PHOS ####[address] [phone]#### TRANSF ####[address] [phone] XR CHEST 1V PORT POST PICC - [...] place; Check tip position following PICC placement.M: [id number]: 08/13/2017RESULT:1. Lines / Tubes: a. Interval placement [...] ease, it is acceptable for venous access use.Complex Human Resources Manager: NII Transcribe Date/Time: Aug 16 2017 10:15ADictated by : AURORA ROMERO MDThis examination was interpreted and the report reviewed and electronically signed by: AURORA ROMERO MD on Aug 16 2017 10:16AM [id number] [facility] ALLIED HEALTHon 08-15-2017 ALLIED HEALTH HNO ID: [id number] thor: Jennifer Win CtService: (none)Author Type: (none)Type: Allied HealthFiled: 08/15/2017 2:49 PMNote Text: Radiology Service Progress NotePATIENT NAME: Rocio HayesN: [id number] OF SERVICE: August 15, 2017TIME: 2:48 PMPATIENT IDENTITY VERIFICATION COMPLETED USING TWO (2) METHODS: Patientconfirmed name verbally and ID band matches..PATIENT GENDER DATA: MalePATIENT RELEVANT IMPLANT DATA REVIEWED: Not ApplicableRADIOLOGY DEPARTMENT: CT; Exam(s) Completed: ABSCESS DRAINAGEPERIPHERAL IV DATA: Not applicableSIGNED BY: Jennifer Win CtFebruwashington 2017 2:48 PM [facility] BRIEF OP NOTon 08-15-2017 BRIEF OP NOT HNO ID: [id number] thor: Reji Samaniegoe: RadiologyAuthor Type: PhysicianType: Brief [...] 15, 2017 : 2:45 PM PAGER/CONTACT #: [phone] Normal [facility] Blood Cultureon 08-15-2017 Bacteria culture Sp. Request/Comment: - The blood culture bottles are underfilled. Adding volume lower or higher than the 8 to 10 mL per bottle, which is the manufacturers recommended volume, may adversely affect the recovery and/or detection of organisms. 10.9MLCulture Result - No growth 5 days Normal [facility] Comment on above: Performed By: #### P T, PTT, AMYL, CMP, LIPA, PHOS ####[place] [address]#### TRANSF ####[place] [address] Bacteria culture Culture Result - No growth 5 days Normal [facility] Comment on above: Performed By: #### P T, PTT, AMYL, CMP, LIPA, PHOS ####[place] [address]#### TRANSF ####[place] [phone] CBCon 08-15-2017 Erythrocyte distribution width Auto Ratio (RBC) 15.2 % High 11.5-15.0 [facility] Comment on above: Performed By: #### P T, PTT, AMYL, CMP, LIPA, PHOS ####[place] [address]#### TRANSF ####[place] [phone] Erythrocytes (RBC) 3.46 10*6/uL Low 4.20-6.00 [facility] Comment on above: Performed By: #### P T, PTT, AMYL, CMP, LIPA, PHOS ####[place] [address]#### TRANSF ####[place] [phone] Hematocrit (HCT) 29.3 % Low 39.0-51.0 [facility] Comment on above: Performed By: #### P T, PTT, AMYL, CMP, LIPA, PHOS ####[place] [address]#### TRANSF ####[place] [phone] Hemoglobin mass conc (Bld) 9.7 g/dL Low 13.0-17.0 [facility] Comment on above: Performed By: #### P T, PTT, AMYL, CMP, LIPA, PHOS ####[place] [address]#### TRANSF ####[place] [phone] MCH 28.0 pG Normal 26.0-34.0 [facility] Comment on above: Performed By: #### P T, PTT, AMYL, CMP, LIPA, PHOS ####[address]#### TRANSF ####[place] [phone] MCHC mass conc (RBC) 33.1 g/dL Normal 30.5-36.0 [facility] Comment on above: Performed By: #### P T, PTT, AMYL, CMP, LIPA, PHOS ####[place] [address]#### TRANSF ####[place] [phone] MCV 84.7 fL Normal 80.0-100.0 [facility] Comment on above: Performed By: #### P T, PTT, AMYL, CMP, LIPA, PHOS ####[place] [address]#### TRANSF ####[place] [phone] Platelet mean volume (PMV) 10.2 fL Normal 9.0-12.7 [facility] Comment on above: Performed By: #### P T, PTT, AMYL, CMP, LIPA, PHOS ####[place] [address]#### TRANSF ####[place] [phone] Platelets 302 10*3/uL Normal 150-400 [facility] Comment on above: Performed By: #### P T, PTT, AMYL, CMP, LIPA, PHOS ####[place] [address]#### TRANSF ####[place] [phone] WBC (Leukocytes) 12.79 10*3/uL High 3.70-11.00 [facility] Comment on above: Performed By: #### P T, PTT, AMYL, CMP, LIPA, PHOS ####[place] [address]#### TRANSF ####[place] [phone] Erythrocyte distribution width Auto Ratio (RBC) 15.3 % High 11.5-15.0 [facility] Comment on above: Performed By: #### P T, PTT, AMYL, CMP, LIPA, PHOS ####[place] [address]#### TRANSF ####[place] [phone] Erythrocytes (RBC) 3.99 10*6/uL Low 4.20-6.00 [facility] Comment on above: Performed By: #### P T, PTT, AMYL, CMP, LIPA, PHOS ####[place] [address]#### TRANSF ####[place] [phone] Hematocrit (HCT) 33.4 % Low 39.0-51.0 [facility] Comment on above: Performed By: #### P T, PTT, AMYL, CMP, LIPA, PHOS ####[place] [address]#### TRANSF ####[place] [phone] Hemoglobin mass conc (Bld) 11.1 g/dL Low 13.0-17.0 [facility] Comment on above: Performed By: #### P T, PTT, AMYL, CMP, LIPA, PHOS ####[place] [address]#### TRANSF ####[place] [phone] MCH 27.8 pG Normal 26.0-34.0 [facility] Comment on above: Performed By: #### P T, PTT, AMYL, CMP, LIPA, PHOS ####[place] [address]#### TRANSF ####[place] [phone] MCHC mass conc (RBC) 33.2 g/dL Normal 30.5-36.0 [facility] Comment on above: Performed By: #### P T, PTT, AMYL, CMP, LIPA, PHOS ####[place] [address]#### TRANSF ####[place] [phone] MCV 83.7 fL Normal 80.0-100.0 [facility] Comment on above: Performed By: #### P T, PTT, AMYL, CMP, LIPA, PHOS ####[place] [address]#### TRANSF ####[place] [phone] Platelet mean volume (PMV) 11.9 fL Normal 9.0-12.7 [facility] Comment on above: Performed By: #### P T, PTT, AMYL, CMP, LIPA, PHOS ####[place] [address]#### TRANSF ####[place] [phone] Platelets 328 10*3/uL Normal 150-400 [facility] Comment on above: Performed By: #### P T, PTT, AMYL, CMP, LIPA, PHOS ####[place] [address]#### TRANSF ####[place] [phone] WBC (Leukocytes) 16.33 10*3/uL High 3.70-11.00 [facility] Comment on above: Performed By: #### P T, PTT, AMYL, CMP, LIPA, PHOS ####[address]#### TRANSF ####[place] [phone] CONSULTon 08-15-2017 CONSULT HNO ID: [id number] thor: Gissell Michael) GerrekService: GastroenterologyAuthor Type: Nurse PractitionerType: ConsultsFiled: 08/15/2017 4:44 PMNote Text: -Attestation signed by Lourdes Ferrari at 08/17/2017 10:00 AMATTENDING NOTE:?I performed a history and physical examination of the patient and supervisedand discussed plan of care and management with the PA/UPSTAIRS MAID. I reviewed thePA/UPSTAIRS MAID's note and agree with the documented findings and plan of care.? ?Thank you for allowing us to participate in the care of this patient. Pleasecall with any questions or concerns.Anika TamayoWadena Clinic GastroenterologyAbrazo [facility] Campus [phone] --------CONSULT: [facility] Gastroenterology SERVICESERVICE DATE: 08/15/2017SERVICE TIME: 9:04 AMREASON FOR CONSULT: ERCPREQUESTING PHYSICIAN: Dr. Michael KellerUSA Health [facility] PHYSICIAN: No primary care provider on file.SubjectiveMr. [...] became acutely worse. [facility] 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 [facility] was transferred to [facility] for further evaluationand treatment. Following admission [...] Date- ANGIOPLASTY HX 05/15/2011 2 stents s/p [place];[facility]- CHOLECYSTECTOMY 08/11/2017 [facility] family history on file.Social HistorySubstance Use Topics- [...] by mouth once daily. Disp: Rfl:08/10/[address] [place] [address] medications:oxyCODONE IR 5 mg tab(s) (ROXICODONE) 5 [...] control as per primary service-Maintain NPO-IV Cipro implementation analyst for ERCP (ordered)D/w Dr. Nava and Dr. FerrariSIGNATURE: Gissell Serrato CNP PATIENT NAME: Rocio FrischDATE: August 15, 2017 : 9:04 AM PAGER: [phone] [facility] [address] PERIT/RETROP FL BIon 08-15-2017 [...] with administration of agent, ends when continuous uixr-lv-wjuw time ends): 14 minutese) Patient monitoring: Continuous ECG, pulse oximetry and cardiopulmonary monitoring was performed during the entire procedure by both the physician and nurse.-I, the procedural radiologist personally supervised and directed the independent trained observer who assisted in monitoring the patient's level of consciousness and physiological status throughout the procedure.Catheter/ needle used: 5 Jamaican Yueh, 8 Jamaican pigtail.Imaging guidance with images saved into the permanent archive: CTTechnique: Using CT guidance a 5 Jamaican catheter was inserted into the abscess collection in the gastrohepatic location. Serial dilatation was performed over a wire and an 8 Jamaican pigtail catheter was inserted into the abscess collection. Approximately 110 cc of dark red serous fluid was obtained.Sample obtained: As aboveEstimated blood loss: Less than 1 ccComplications: NoneIMPRESSION: CT-guided abscess drainage of gastrohepatic fluid collection. Nearly the entire fluid collection was drained during this procedure. An 8 Jamaican pigtail catheter remains in the location of the fluid collection and was connected to an accordion drainage bag. Patient was sent back to the room with the catheter.Complex Human Resources Manager: PSCB Transcribe Date/Time: Aug 15 2017 5:47PDictated by : REJI PATEL MDThis examination was interpreted and the report reviewed and electronically signed by: REJI PATEL MD on Aug 15 2017 6:07PM [id number] [facility] Comp Metabolic Panelon 08-15 Alanine aminotransferase (ALT) 205 U/L High 5-50 [facility] Comment on above: Performed By: #### P T, PTT, AMYL, CMP, LIPA, PHOS ####[place] [address]#### TRANSF ####[place] [phone] Albumin 2.5 g/dL Low 3.5-5.0 [facility] Comment on above: Performed By: #### P T, PTT, AMYL, CMP, LIPA, PHOS ####[place] [address]#### TRANSF ####[place] [phone] Alkaline phosphatase (ALP) 515 U/L High 40-150 [facility] [facility] Comment on above: Performed By: #### P T, PTT, AMYL, CMP, LIPA, PHOS ####[place] [address]#### TRANSF ####[place] [phone] Anion gap 14 mmol/L Normal 9-18 [facility] Comment on above: Performed By: #### P T, PTT, AMYL, CMP, LIPA, PHOS ####[place] [address]#### TRANSF ####[place] [phone] Aspartate aminotransferase (AST) 74 U/L High 7-40 [facility] Comment on above: Performed By: #### P T, PTT, AMYL, CMP, LIPA, PHOS ####[place] [address]#### TRANSF ####[place] [phone] Bilirubin (total) 1.7 mg/dL High 0.0-1.5 [facility] Comment on above: Performed By: #### P T, PTT, AMYL, CMP, LIPA, PHOS ####[address]#### TRANSF ####[place] [address] [address] [place] [phone] Calcium 8.7 mg/dL Normal 8.5-10.5 [facility] Comment on above: Performed By: #### P T, PTT, AMYL, CMP, LIPA, PHOS ####[place] [address]#### TRANSF ####[place] [phone] Chloride 98 mmol/L Normal 98-110 [facility] Comment on above: Performed By: #### P T, PTT, AMYL, CMP, LIPA, PHOS ####[place] [address]#### TRANSF ####[place] [address] CO2 24 mmol/L Normal 23-32 [facility] Comment on above: Performed By: #### P T, PTT, AMYL, CMP, LIPA, PHOS ####[place] [address]#### TRANSF ####[place] [address] [address] [place] [phone] Creatinine 0.62 mg/dL Low 0.70-1.40 [facility] Comment on above: Performed By: #### P T, PTT, AMYL, CMP, LIPA, PHOS ####[place] [address]#### TRANSF ####[place] [address] [address] [place] [phone] eGFR (non-black) mL/min/{1.73_m2} Normal >60 [facility] Comment on above: Performed By: #### P T, PTT, AMYL, CMP, LIPA, PHOS ####[place] [phone]#### TRANSF ####[place] [phone] Glucose mass conc 151 mg/dL High 65-100 [facility] Comment on above: Performed By: #### P T, PTT, AMYL, CMP, LIPA, PHOS ####[place] [address]#### TRANSF ####[place] [phone] Potassium molar conc 3.5 mmol/L Normal 3.5-5.0 [facility] Comment on above: Performed By: #### P T, PTT, AMYL, CMP, LIPA, PHOS ####[place] [address]#### TRANSF ####[place] [phone] Protein 6.4 g/dL Normal 6.0-8.4 [facility] Comment on above: Performed By: #### P T, PTT, AMYL, CMP, LIPA, PHOS ####[place] [address]#### TRANSF ####[place] [phone] Sodium 136 mmol/L Normal 135-146 [facility] Comment on above: Performed By: #### P T, PTT, AMYL, CMP, LIPA, PHOS ####[address]#### TRANSF ####[place] [phone] Urea nitrogen 12 mg/dL Normal 10- [facility] Comment on above: Performed By: #### P T, PTT, AMYL, CMP, LIPA, PHOS ####[facility] [place], [place] [phone]#### TRANSF ####[facility] [address] [place], [place] [phone] HISTORY PHYSICALon 8 HISTORY PHYSICAL HNO ID: [id number] thor: Reji Samaniegoe: RadiologyAuthor Type: PhysicianType: HANDPFiled: [...] Date- ANGIOPLASTY HX 05/15/2011 2 stents s/p [place];[facility]- CHOLECYSTECTOMY 08/11/2017 [facility] as of 08/13/17 2301Medication Sig Last Dose Takingaspirin, enteric coated (ECOTRIN LOW STRENGTH) 81 mg EC tablet Take 162 mgby mouth once daily. Past Week at Unknown time Yeslisinopril 2.5 mg tablet Take 2.5 mg by mouth once daily. 08/11/2017 sx2315 Yesatorvastatin (LIPITOR) 40 mg tablet Take 40 [...] August 15, 2017 : 2:05 PM PAGER: [phone] Normal [facility] Magnesiumon 08-15-2017 Magnesium 2.0 mg/dL Normal 1.7-2.6 [facility] Comment on above: Performed By: #### P T, PTT, AMYL, CMP, LIPA, PHOS ####[facility] [place] [phone]#### TRANSF ####[facility] [address] [place] [phone] NURSING PROGon 08-15-2017 NURSING PROG HNO ID: [id number] thor: Saima Kramer (Rn) Debra, RNService: (none)Author Type: Registered NurseType: Nursing Progress NoteFiled: 08/15/2017 6:48 PMNote Text: Nursing Progress NotePatient Name: Rocio JacksonMRN: [id number] Location: [address]/[id number] ____Daily Note:Pt phos level 2.2 - text [...] was completed by: Saima Richardson RN [facility] NUTRITIONon 08-15-2017 NUTRITION HNO ID: [id number] thor: Alana Greenwood (Gordo) SunilService: Nutrition TherapyAuthor Type: Registered DietitianType: NutritionFiled: 08/15/2017 1:17 PMNote Text:NUTRITION SUPPORT TEAMTOPIC: NUTRITION SUPPORT PROGRESS NOTEPATIENT NAME: Rocio JacksonMRN: [id number] OF : 1955DATE: 08/15/2017Nutritional Status: SEVERE PROTEIN [...] 87 kgResting Metabolic Rate: 1661Estimated kilocalorie needs: 5053-6851 kilocalories determined by 25-28kcal/kgEstimated protein needs:113 - [...] lb 9.6 oz) SpO2 92% BMI 29.28 kg/s9Yccwrgb Weight: Weight: 87.4 kg (192 lb 9.6 [...] -- --CA 8.7 -- 8.5 8.9Recent Labs [id number] 7*Accuchecks:Glucose, Point of Care (mg/dL)Date Value08/15/2017 141 (A)08/15/2017 154 (A)08/15/2017 138 (A)08/14/2017 148 (A)Alana Barber RD, LDPager: For further assistance and weekends please page the Group [phone] :3 [facility] PROGRESSon 08-15-2017 PROGRESS HNO ID: [id number] thor: Kael (Res) ASHLEY Hernandezervice: General SurgeryAuthor Type: ResidentType: Progress NotesFiled: 08/15/2017 7:29 PMNote Text:GENERAL SURGERY PROGRESS NOTENAME: Rocio AbigailN: [id number] 2017 7:20 PMASSESSMENT AND PLAN:Mr. Jackson is [...] for TPN- Dispo: ARLINE HERNANDEZ MDGeneral SurgeryPager: [phone]*On weekends or nights (after 1800) please contact the surgery on callpager.*SUBJECTIVE: No acute issues overnight and during the day. Restingcomfortably in bed.OBJECTIVE:BP 109/58 Pulse 78 Temp 36.3 ?C (97.4 ?F) (Oral) Resp 18 Ht 172.7cm (5' 8 ) Wt 87.4 kg (192 lb 9.6 oz) SpO2 94% BMI 29.28 kg/z0CKCTIBU: alert, NADLUNGS: breathing comfortablyCARDIAC: irregularABDOMEN: mildly TTP in upper abd, mildly distended, softEXTREMITIES: warm and well perfusedDRAINS/LINES: bilious drainage from JPDate 08/14/17 1500 - 08/15/17 0659 08/15/17 0700 - 08/16/17 0659Shift 0410-6689 4131-0474 24 Hour Total 6941-1072 2508-7959 7570-1086 24Hour TotalINTAKE PO 60 60 30 30 PO 60 60 30 30 IV 2018 2018 254 594 6972 NS 0.9% 2018 2018 746 030 7204 Irrigants 20 40 30 30 Irrigant/Flush Amount In (GI Feed/Drain 08/14/17 0109 Nasogastric RightNaris 18 Fr) 20 40 30 30 Shift Total 2099 2119 744 665 1409OUTPUT Urine 575 1125 425 425 Void (ml) 575 1125 425 425 Tubes 684 776 2374 330 445 775 Drain/Tube Output (Drain/Tube [facility] RightLower Quadrant Abdomen) 260 30 370 140 70 210 Drain/Tube Output (Drain/Tube 08/15/17 1530 Assessment Right UpperAbdomen) 275 275 Output (GI Feed/Drain 08/14/17108 Nasogastric Right Naris 18 Fr) 929456 3777 190 100 290 # of BMs Number [...] 395*ALT 205* -- 370* -- 418* [facility] PROGRESS HNO ID: [id number] thor: Khadar DuffyService: General SurgeryAuthor Type: PhysicianType: [...] Duffy MDFebruary 2017 5:53 PM(late entry) [facility] PT EDon 08-15-2017 PT ED HNO ID: [id number] thor: Dhara (Rn) MOUSTAPHA Riveroervice: RadiologyAuthor Type: [...] instructionPATIENT / FAMILY RESPONSE: Verbalizes understanding of: [id number]-T orrect actions to take to reduce post procedurecomplicationsPRE-CT OCEDURE INSTRUCTIONS-Correct action to take to follow pre-procedureinstructionsFOL LOW-UP PLAN: Complete - No need for follow-upSUPPLEMENTAL MATERIAL: Title of written material: Abcess drain andSedation informationREFERRAL (RECOMMENDATION): NoneElectronically Signed By: Dhara Rivero RN In Department: [facility] PK3C Normal [facility] PTT,Anticoag Therapyon 08-15 aPTT 39.8 s High 23.0-32.4 [facility] Comment on above: Result Comment: Unfr [...] laboratory APTT reagent in use throughout the [facility]. Performed By: #### P T, PTT, AMYL, CMP, LIPA, PHOS ####[place] [phone]#### TRANSF ####[place] [address] [place] [phone] Phosphoruson 08-15-2017 Phosphate 2.2 mg/dL Low 2.5-4.5 [facility] Comment on above: Performed By: #### P T, PTT, AMYL, CMP, LIPA, PHOS ####[place] [phone]#### TRANSF ####[place] [address] [address] [phone] Protimeon 08-15-2017 INR Coag RelTime (Bld) 2.0 {INR} High 0.9-1.3 [facility] Comment on above: Result Comment: Tayler min K Antagonist (VKA) Therapeutic Range: INR 2 to 3 (Target INR of 2.5)Note: For patients treated with VKA drugs, such as warfarin, the [place] [employer] 2012 Guideline recommends [...] al. Chest 2012, 141:7S-47SNishimivette RA, et al. [facility] 2017, 70: 252-289 Performed By: #### P T, PTT, AMYL, CMP, LIPA, PHOS ####[place] [address]#### TRANSF ####[place] [address] [place] [phone] PT Sec 19.4 sec High 9.7-13.0 [facility] Comment on above: Performed By: #### P T, PTT, AMYL, CMP, LIPA, PHOS ####[place] [address]#### TRANSF ####[place] [phone] Urine Cultureon 08-15-2017 Urine culture, bacteria Sp. [...] <=0.25 FErtapenem SUSCEPTIBLE <=0.5 F Critically abnormal [facility] Comment on above: Performed By: #### P T, PTT, AMYL, CMP, LIPA, PHOS ####[facility] [place], [place] [phone]#### TRANSF ####[address] [phone] Wound Culture/Stainon 2017 Wound Culture/Stain Sp. Request/Comment: - Specimen received in sterile container.Smear Result - Rare Gram positive cocci in pairs and chains --> ABNORMAL ALERT No Polymorphonuclear LeukocytesCulture Result - Moderate Streptococcus mutans group --> ABNORMAL ALERTORGANISM: Streptococcus mutans groupMETHOD: Minimum inhibitory concentration (VIZION)Antibiotic Interp JOLENE StatusPenicillin G SUSCEPTIBLE <=0.03 FVancomycin SUSCEPTIBLE <=0.5 FCeftriaxone SUSCEPTIBLE <=0.12 FClindamycin SUSCEPTIBLE <=0.12 F Critically abnormal [facility] Comment on above: Performed By: #### W CUL ####[place] [address] [place], [place] [phone] ALLIED HEALTHon 08-14-2017 ALLIED HEALTH HNO ID: [id number] thor: Albert Sutherland: (none)Author Type: (none)Type: Allied HealthFiled: 08/14/2017 7:17 PMNote Text: Radiology Service Progress NotePATIENT NAME: Rocio HayesN: [id number] OF SERVICE: August 14, 2017TIME: 7:16 PMPATIENT IDENTITY VERIFICATION COMPLETED USING TWO (2) METHODS: Patientconfirmed name verbally and ID band matches..PATIENT GENDER DATA: MalePATIENT RELEVANT IMPLANT DATA REVIEWED: Not ApplicableCONTRAST INDUCED NEPHROPATHY RISK FACTORS: Patient age > 60 yearsCREATININE:CreatinineDa te Value Ref Range Effdcv3908/14/2017 0.61 (L) 0.70 - 1.40 mg/dL Final08/14/2017 0.63 (L) 0.70 - 1.40 mg/dL Final eGFR-All Other RacesDate Value Ref Range Wqkljf3008/14/2017 >60 >60 . Final eGFR- AmericanDate Value Ref Range Mvsnbl3608/14/2017 >60 >60 Final P.O.C.T. RESULTS: POC done: Yes, See Lab Tab August 14, 2017RADIOLOGIST NOTIFIED?: LacyERGIES: Reviewed and unchangedCONTRAST ALLERGY: NO.PERIPHERAL IV ACCESS: Inpatient: see LDA documentationRADIOLOGY DEPARTMENT: CT; Exam(s) Completed: Abdomen/Pelvis , Chest andPancreasSIGNED BY: Albert Vaughan 2017 7:16 PM Normal [facility] ALLIED HEALTH HNO ID: [id number] thor: Denise Graham RTService: (none)Author Type: (none)Type: Allied HealthFiled: 08/14/2017 1:32 AMNote Text: Radiology Service Progress NotePATIENT NAME: Rocio HayesN: [id number] OF SERVICE: August 14, 2017TIME: 1:32 AMPATIENT IDENTITY VERIFICATION COMPLETED USING TWO (2) METHODS: Patientconfirmed name verbally and ID band matches..PATIENT GENDER DATA: MalePATIENT RELEVANT IMPLANT DATA REVIEWED: Not ApplicableRADIOLOGY DEPARTMENT: General X-ray: Exam(s) Completed: Chest X-RayAbdomen X-Ray AbdomenPERIPHERAL IV DATA: Not applicableSIGNED BY: Denise ESPINALLamar [facility] 2017 1:32 AM Normal [facility] APTTon 08-14-2017 aPTT 31.6 s Normal 23.0-32.4 [facility] Comment on above: Result Comment: Unfr [...] laboratory APTT reagent in use throughout the [facility]. Performed By: #### P T, PTT, AMYL, CMP, LIPA, PHOS ####[facility] [place], [place] [phone]#### TRANSF ####[facility] [place], [place] [phone] aPTT 30.2 s Normal 23.0-32.4 [facility] Comment on above: Result Comment: Unfr [...] laboratory APTT reagent in use throughout the [facility]. Performed By: #### P T, PTT, AMYL, CMP, LIPA, PHOS ####[place] [phone]#### TRANSF ####[address] [phone] Amylaseon 08-14-2017 Amylase 59 U/L Normal 0-137 [facility] Comment on above: Performed By: #### P T, PTT, AMYL, CMP, LIPA, PHOS ####[place] [phone]#### TRANSF ####[address] [phone] Bilirubin, Fluidon 8 Bilirubin (direct) 6.1 mg/dL Critically abnormal See Comment [facility] Comment on above: Result Comment: Sero [...] document C49A. SAIMA Contreras: Clinical Laboratory Standards [place]: 2007.2. Nani Montalvo Hay T, Andra Y et al. The Determination of Bile Leakage in Complex Hepatectomy Based on the Guidelines of the International Study Group of Liver Surgery. World J Surg. 2014 38:168-176.This test was developed and its performance characteristics determined by [facility]'s [facility] Pathology and Laboratory Medicine [place] ([facility]).It has not been cleared or approved by the FDA. [facility] is regulated under CLIA as qualified to perform high-complexity testing.This test is used for clinical purposes. It should not be regarded as investigational or for research. Performed By: #### P T, PTT, AMYL, CMP, LIPA, PHOS ####[place] [address]#### TRANSF ####[place] [address] Fluid Other Normal [facility] Comment on above: Result Comment: ROMNIA HERNÁNDEZ Performed By: #### P T, PTT, AMYL, CMP, LIPA, PHOS ####[place] [address]#### TRANSF ####[place] [address] CBCon 08-14-2017 Erythrocyte distribution width Auto Ratio (RBC) 15.2 % High 11.5-15.0 [facility] Comment on above: Performed By: #### P T, PTT, AMYL, CMP, LIPA, PHOS ####[place] [address]#### TRANSF ####[place] [address] Erythrocytes (RBC) 3.70 10*6/uL Low 4.20-6.00 [facility] Comment on above: Performed By: #### P T, PTT, AMYL, CMP, LIPA, PHOS ####[place] [address]#### TRANSF ####[place] [phone] Hematocrit (HCT) 31.7 % Low 39.0-51.0 [facility] Comment on above: Performed By: #### P T, PTT, AMYL, CMP, LIPA, PHOS ####[place] [address]#### TRANSF ####[place] [phone] Hemoglobin mass conc (Bld) 10.7 g/dL Low 13.0-17.0 [facility] Comment on above: Performed By: #### P T, PTT, AMYL, CMP, LIPA, PHOS ####[place] [address]#### TRANSF ####[place] [phone] MCH 28.9 pG Normal 26.0-34.0 [facility] Comment on above: Performed By: #### P T, PTT, AMYL, CMP, LIPA, PHOS ####[place] [address]#### TRANSF ####[place] [phone] MCHC mass conc (RBC) 33.8 g/dL Normal 30.5-36.0 [facility] Comment on above: Performed By: #### P T, PTT, AMYL, CMP, LIPA, PHOS ####[place] [address]#### TRANSF ####[place] [address] MCV 85.7 fL Normal 80.0-100.0 [facility] Comment on above: Performed By: #### P T, PTT, AMYL, CMP, LIPA, PHOS ####[place] [phone]#### TRANSF ####[address] [phone] Platelet mean volume (PMV) 12.1 fL Normal 9.0-12.7 [facility] Comment on above: Performed By: #### P T, PTT, AMYL, CMP, LIPA, PHOS ####[place] [address]#### TRANSF ####[place] [phone] Platelets 285 10*3/uL Normal 150-400 [facility] Comment on above: Performed By: #### P T, PTT, AMYL, CMP, LIPA, PHOS ####[place] [address]#### TRANSF ####[place] [phone] WBC (Leukocytes) 11.53 10*3/uL High 3.70-11.00 [facility] Comment on above: Performed By: #### P T, PTT, AMYL, CMP, LIPA, PHOS ####[place] [address]#### TRANSF ####[place] [phone] CT CHEST W IVCONon 8 CT CHEST [...] pelvis.IMPRESSION: Bilateral effusions with associated atelectasis versus infiltrates.Complex Human Resources Manager : [facility] CENTERShefali Transcribe Date/Time: Aug 14 2017 8:43PDictated by : AURORA ROMERO MDThis examination was interpreted and the report reviewed and electronically signed by: AURORA ROMERO MD on Aug 14 2017 8:46PM [id number] Normal [facility] CT PANCREAS/PELVIS W IVCONon 08-14-2017 CT [...] ROMERO MD on Aug 15 2017 5:11PM [id number] Normal [facility] Metabolic Panelon 08-14 Alanine aminotransferase (ALT) 370 U/L High 5-50 [facility] Comment on above: Performed By: #### P T, PTT, AMYL, CMP, LIPA, PHOS ####[place] [address]#### TRANSF ####[place] [phone] Albumin 2.9 g/dL Low 3.5-5.0 [facility] Comment on above: Performed By: #### P T, PTT, AMYL, CMP, LIPA, PHOS ####[place] [address]#### TRANSF ####[place] [phone] Alkaline phosphatase (ALP) 727 U/L High 40-150 [facility] Comment on above: Performed By: #### P T, PTT, AMYL, CMP, LIPA, PHOS ####[place] [address]#### TRANSF ####[place] [phone] Anion gap 15 mmol/L Normal 9-18 [facility] Comment on above: Performed By: #### P T, PTT, AMYL, CMP, LIPA, PHOS ####[place] [address]#### TRANSF ####[place] [phone] Aspartate aminotransferase (AST) 285 U/L High 7-40 [facility] Comment on above: Performed By: #### P T, PTT, AMYL, CMP, LIPA, PHOS ####[place] [address]#### TRANSF ####[place] [phone] Bilirubin (total) 2.3 mg/dL High 0.0-1.5 [facility] Comment on above: Performed By: #### P T, PTT, AMYL, CMP, LIPA, PHOS ####[place] [address]#### TRANSF ####[place] [address] [address] [phone] Calcium 8.5 mg/dL Normal 8.5-10.5 [facility] Comment on above: Performed By: #### P T, PTT, AMYL, CMP, LIPA, PHOS ####[place] [address]#### TRANSF ####[place] [phone] Chloride 96 mmol/L Low 98-110 [facility] Comment on above: Performed By: #### P T, PTT, AMYL, CMP, LIPA, PHOS ####[place] [address]#### TRANSF ####[place] [phone] CO2 22 mmol/L Low 23-32 [facility] Comment on above: Performed By: #### P T, PTT, AMYL, CMP, LIPA, PHOS ####[place] [address]#### TRANSF ####[place] [address] [address] [place] [phone] Creatinine 0.61 mg/dL Low 0.70-1.40 [facility] Comment on above: Performed By: #### P T, PTT, AMYL, CMP, LIPA, PHOS ####[place] [address]#### TRANSF ####[address] Av[address] [place] [phone] eGFR (non-black) mL/min/{1.73_m2} Normal >60 [facility] Comment on above: Performed By: #### P T, PTT, AMYL, CMP, LIPA, PHOS ####[place] [phone]#### TRANSF ####[address] Av[address] [place] [phone] Glucose mass conc 147 mg/dL High 65-100 [facility] Comment on above: Performed By: #### P T, PTT, AMYL, CMP, LIPA, PHOS ####[place] [address]#### TRANSF ####[place] [phone] Potassium molar conc 3.8 mmol/L Normal 3.5-5.0 [facility] Comment on above: Performed By: #### P T, PTT, AMYL, CMP, LIPA, PHOS ####[place] [address]#### TRANSF ####[place] [phone] Protein 6.4 g/dL Normal 6.0-8.4 [facility] Comment on above: Performed By: #### P T, PTT, AMYL, CMP, LIPA, PHOS ####[place] [address]#### TRANSF ####[place] [phone] Sodium 133 mmol/L Low 135-146 [facility] Comment on above: Performed By: #### P T, PTT, AMYL, CMP, LIPA, PHOS ####[place] [address]#### TRANSF ####[place] [phone] Urea nitrogen 9 mg/dL Low 10-25 [facility] Comment on above: Performed By: #### P T, PTT, AMYL, CMP, LIPA, PHOS ####[place] [address]#### TRANSF ####[place] [phone] Alanine aminotransferase (ALT) 418 U/L High 5-50 [facility] Comment on above: Performed By: #### P T, PTT, AMYL, CMP, LIPA, PHOS ####[place] [address]#### TRANSF ####[place] [phone] Albumin 3.1 g/dL Low 3.5-5.0 [facility] Comment on above: Performed By: #### P T, PTT, AMYL, CMP, LIPA, PHOS ####[place] [address]#### TRANSF ####[place] [phone] Alkaline phosphatase (ALP) 832 U/L High 40-150 [facility] Comment on above: Performed By: #### P T, PTT, AMYL, CMP, LIPA, PHOS ####[place] [address]#### TRANSF ####[place] [phone] Anion gap 13 mmol/L Normal 9-18 [facility] Comment on above: Performed By: #### P T, PTT, AMYL, CMP, LIPA, PHOS ####[place] [address]#### TRANSF ####[place] [phone] Aspartate aminotransferase (AST) 395 U/L High 7-40 [facility] Comment on above: Performed By: #### P T, PTT, AMYL, CMP, LIPA, PHOS ####[place] [address]#### TRANSF ####[place] [phone] Bilirubin (total) 2.7 mg/dL High 0.0-1.5 [facility] Comment on above: Performed By: #### P T, PTT, AMYL, CMP, LIPA, PHOS ####[place] [address]#### TRANSF ####[place] [phone] Calcium 8.9 mg/dL Normal 8.5-10.5 [facility] Comment on above: Performed By: #### P T, PTT, AMYL, CMP, LIPA, PHOS ####[place] [address]#### TRANSF ####[place] [phone] Chloride 96 mmol/L Low 98-110 [facility] Comment on above: Performed By: #### P T, PTT, AMYL, CMP, LIPA, PHOS ####[place] [address]#### TRANSF ####[place] [phone] CO2 23 mmol/L Normal 23-32 [facility] Comment on above: Performed By: #### P T, PTT, AMYL, CMP, LIPA, PHOS ####[place] [address]#### TRANSF ####[place] [address] Creatinine 0.63 mg/dL Low 0.70-1.40 [facility] Comment on above: Performed By: #### P T, PTT, AMYL, CMP, LIPA, PHOS ####[place] [phone]#### TRANSF ####[place] [phone] eGFR (non-black) mL/min/{1.73_m2} Normal >60 [facility] Comment on above: Performed By: #### P T, PTT, AMYL, CMP, LIPA, PHOS ####[place] [address]#### TRANSF ####[place] [phone] Glucose mass conc 149 mg/dL High 65-100 [facility] Comment on above: Performed By: #### P T, PTT, AMYL, CMP, LIPA, PHOS ####[place] [address]#### TRANSF ####[place] [phone] Potassium molar conc 4.2 mmol/L Normal 3.5-5.0 [facility] Comment on above: Performed By: #### P T, PTT, AMYL, CMP, LIPA, PHOS ####[place] [address]#### TRANSF ####[place] [phone] Protein 7.0 g/dL Normal 6.0-8.4 [facility] Comment on above: Performed By: #### P T, PTT, AMYL, CMP, LIPA, PHOS ####[address]#### TRANSF ####[address], [place] [phone] Sodium 132 mmol/L Low 135-146 [facility] Comment on above: Performed By: #### P T, PTT, AMYL, CMP, LIPA, PHOS ####[place] [address] [place], [place] [phone]#### TRANSF ####[facility] [place], [place] [phone] Urea nitrogen 9 mg/dL Low 10-25 [facility] Comment on above: Performed By: #### P T, PTT, AMYL, CMP, LIPA, PHOS ####[place] [id number] [place], [place] [phone]#### TRANSF ####[address] [phone] HISTORY PHYSICALon HISTORY PHYSICAL HNO ID: [id number] thor: Michael Cedillo) AugustinService: General SurgeryAuthor Type: PhysicianType: HANDPFiled: 08/14/2017 11:20 PMNote Text:SURGICAL SERVICES INITIAL HANDPSERVICE DATE: 08/13/2017SERVICE TIME: 11:52 PMPRIMARY CARE PHYSICIAN: No primary care provider on file.SubjectiveHISTORY OF PRESENT ILLNESS: Mr. Jackson is a 62 year old male with PMH ofCAD s/p stent x2, type 2 DM on metformin, HTN, glaucoma, PSH ofcholecystectomy ) who was transferred from [facility].Patient reports symptoms of abdominal pain and [...] from the mass and [facility] wastransfer[facility] management.Of note he has an episode of bleeding duodenal ulcer for which he receivedmultiple blood transfusion.PAST MEDICAL HISTORYDiagnosis Date- Bleeding ulcer 11/15/2016 required 5 blood transfusions- Diabetes mellitus (HCC) 2016- Glaucoma- Hypertension- Myocardial infarction 05/15/2011PAST SURGICAL HISTORYProcedure Laterality Date- ANGIOPLASTY HX 05/15/2011 2 stents s/p WI;[facility]- [facility]LECY[facility]ECTOMY 08/11/2017 [facility]No family history on file.Social HistorySubstance Use Topics- [...] by mouth once daily. Disp: [place]fl:[place]START ON 08/14/2017] pneumococcal vaccine 23 [...] Non labored breathing on RACARDIOVASCULAR: History of WI with stents on 162 aspirinGI: Vomiting and [...] 13, 2017 : 11:52 PM PAGER/CONTACT #: [phone] NOTEI have independently seen and examined the patient today. I haveindependently reviewed all the imaging and the labs. I agree with keycomponents of the resident's note above. Care plan and decision making hasbeen discussed.Patient with obstructing duodenal mass [facility] from [facility]2 months of abdominal painUnderwent lap richelle recentlySymptoms have been worse since surgeryAbd is soft and non peritonitic. RUQ tenderness noted. Drain with bileI have reviewed the CT.2 large collections and Duodenal mass. No liver or pulmonary metastasesTumor markersIR drain for abdominal fluid collection; these are likely bilomas givenCBD obstruction at the time of cholecystectomyEGD/ERCP for biliary stentNeeds Cassie Jolley MD, MPH, FACSGeneral/Trauma/HPB SurgeryPager: [phone] Cell: [phone] 2017 Normal [facility] Lipaseon 08-14-2017 Lipase 43 U/L Normal 12-70 [facility] Comment on above: Performed By: #### P T, PTT, AMYL, CMP, LIPA, PHOS ####[place] [id number] [place], [place] [phone]#### TRANSF ####[place] [address] [place], [place] [phone] Lipase 58 U/L Normal 12-70 [facility] Comment on above: Performed By: #### P T, PTT, AMYL, CMP, LIPA, PHOS ####[place] [phone]#### TRANSF ####[address] [phone] NURSING PROGon 08-14-2017 NURSING PROG HNO ID: [id number] thor: Kiley Wong RNService: (none)Author Type: Registered NurseType: Nursing Progress NoteFiled: 08/14/2017 6:27 PMNote Text: Nursing Progress NotePatient Name: Rocio JacksonMRN: [id number] Location: [place] [address]/QL-NF4Q-29 ____Daily Note:1800-Patient reporting a significant increase in [...] tea colored fluid. Call placed to surgical oncologist to notify, hewill be up to see the patient. Repositioned for comfort, no new orders atthis time.1809-Resident is in to see patient, orders to continue to monitor. Callplaced to CT to determine when patient will be taken down. Per hemodialysis lab technician thepatient is on the transport list and CT will be completed soon.is note was completed by: Kiley Wong RN [facility] NURSING PROG HNO ID: [id number] thor: Jacqueline (Rn) Jeremy, RNService: (none)Author Type: Registered NurseType: Nursing Progress NoteFiled: 08/13/2017 10:36 PMNote Text: Nursing Progress NotePatient Name: Rocio Boudreaux: [id number] Location: [place] [address]/MO-AR2U-15 ____Transfer Note:Patient transferred into room/unit PK336 at 2145. Actions taken:Dressingaround pt ROMINA drain changed AND ROMINA emptied. Will follow up with orders andcontinue to monitor.This note was completed by: Jacqueline Luna RN [facility] NUTRITIONon 08-14-2017 NUTRITION HNO ID: [id number] thor: Alise Segura) BarsaService: Nutrition TherapyAuthor Type: [...] 87 kgResting Metabolic Rate: 1661Estimated kilocalorie needs: 5142-0671 kilocalories determined by 25-28kcal/kgEstimated protein needs:113 - [...] lb 9.6 oz) SpO2 93% BMI 29.28 kg/y6Msxhsl Labs 08/14/1803GLUC 147* -- 149*BUN 9* -- [...] assistance and weekends please page theGroup Pager [phone] Normal [facility] Phosphoruson 08-14-2017 Phosphate 2.4 mg/dL Low 2.5-4.5 [facility] Comment on above: Performed By: #### P T, PTT, AMYL, CMP, LIPA, PHOS ####[facility] [place], [place] [phone]#### TRANSF ####[facility] [place], [place] [phone] Phosphate 2.3 mg/dL Low 2.5-4.5 [facility] Comment on above: Performed By: #### P T, PTT, AMYL, CMP, LIPA, PHOS ####[place] [phone]#### TRANSF ####[address] [phone] Phosphate 2.3 mg/dL Low 2.5-4.5 [facility] Comment on above: Performed By: #### P T, PTT, AMYL, CMP, LIPA, PHOS ####[place] [phone]#### TRANSF ####[place] [phone] Prealbuminon 08-14-2017 Prealbumin 7 mg/dL Low 17-36 [facility] Comment on above: Performed By: #### P T, PTT, AMYL, CMP, LIPA, PHOS ####[place] [phone]#### TRANSF ####[address] [phone] Protimeon 08-14-2017 INR Coag RelTime (Bld) 1.5 {INR} High 0.9-1.3 [facility] Comment on above: Result Comment: Tayler min K Antagonist (VKA) Therapeutic Range: INR 2 to 3 (Target INR of 2.5)Note: For patients treated with VKA drugs, such as warfarin, the [employer] 2012 Guideline recommends [...] al. Chest 2012, 141:7S-47SNishkyraura RA, et al. [facility] 2017, 70: 252-289 Performed By: #### P T, PTT, AMYL, CMP, LIPA, PHOS ####[phone]#### TRANSF ####[place] [phone] PT Sec 14.9 sec High 9.7-13.0 [facility] Comment on above: Performed By: #### P T, PTT, AMYL, CMP, LIPA, PHOS ####[place] [phone]#### TRANSF ####[place] [phone] INR Coag RelTime (Bld) 1.5 {INR} High 0.9-1.3 [facility] Comment on above: Result Comment: Tayler min K Antagonist (VKA) Therapeutic Range: INR 2 to 3 (Target INR of 2.5)Note: For patients treated with VKA drugs, such as warfarin, the [employer] 2012 Guideline recommends [...] al. Chest 2012, 141:7S-47SFelice CENTENO, et al. [facility] 2017, 70: 252-289 Performed By: #### P T, PTT, AMYL, CMP, LIPA, PHOS ####[place] [phone]#### TRANSF ####[address] [place] [phone] PT Sec 14.7 sec High 9.7-13.0 [facility] Comment on above: Performed By: #### P T, PTT, AMYL, CMP, LIPA, PHOS ####[place] [phone]#### TRANSF ####[phone] Transferrinon 08-14-2017 Transferrin 218 mg/dL Normal 200-360 [facility] Comment on above: Performed By: #### P T, PTT, AMYL, CMP, LIPA, PHOS ####[address]#### TRANSF ####[phone] Type and Screenon 08-14-2017 ABO/RH(D) Positive Normal [facility] Comment on above: Performed By: #### P T, PTT, AMYL, CMP, LIPA, PHOS ####[place] [address]#### TRANSF ####[place] [phone] Antibody Screen Negative Normal [facility] Comment on above: Performed By: #### P T, PTT, AMYL, CMP, LIPA, PHOS ####[address]#### TRANSF ####[place] [phone] XR ABDOMEN 1V SUPINEon 08-14 XR ABDOMEN [...] excluded from view.IMPRESSION:NG TUBE EXTENDS TO THE STOMACH.Complex Human Resources Manager: NII Transcribe Date/Time: Aug 14 2017 7:37ADictated by : Elisa MOSCOSO examination was interpreted and the report reviewed and electronically signed by: SUSAN CORNEJO MD on Aug 14 2017 7:38AM [id number] [facility] XR CHEST 1V FRONTAL PORTon 0 08-14-2017 [...] Partially obscured.Other:IMPRESSION:Lo w lung volumes with bibasilar atelectasis.Complex Human Resources Manager : NII Transcribe Date/Time: Aug 14 2017 7:38ADictated by : Elisa MOSCOSO examination was interpreted and the report reviewed and electronically signed by: SUSAN CORNEJO MD on Aug 14 2017 7:40AM [id number] [facility] HOSPon 08-13-2017 HOSP Patient:Coleen JacksonLizbeth RN: Height:5' [...] LR infusion (D5-LR)heparin 5,000 Units injectionphenol 1 [place] (CHLORASEPTIC)metoprolol tartrate (short acting) 25 mg tab(s) [...] Signed Nursing Progress NotePatient Name: Rocio Boudreaux: [id number] Location: [address]36/XB-BP0I-19 ____Transfer Note:Patient transferred into room/unit PK336 at [...] DM on metformin, HTN, glaucoma, PSH of uiyxoajyutkdjeh87/13/2018) who was transferred from OSH.Patient reports symptoms [...] from the mass and he was transferred [facility] for further management.Of note he has an episode of bleeding duodenal ulcer for which he receivedmultiple blood transfusion.PAST MEDICAL HISTORYDiagnosis Date- Bleeding ulcer 11/15/2016 required 5 blood transfusions- Diabetes mellitus (HCC) 2016- Glaucoma- Hypertension- Myocardial infarction 05/15/2011PAST SURGICAL HISTORYProcedure Laterality Date- ANGIOPLASTY HX 05/15/2011 2 stents s/p WI;[facility]- CHOLECYSTECTOMY 08/11/2017 [facility]No family history on file.Social HistorySubstance Use Topics- [...] Non labored breathing on RACARDIOVASCULAR: History of WI with stents on 162 aspirinGI: Vomiting and [...] 13, 2017 : 11:52 PM PAGER/CONTACT #: [phone] NOTEI have independently seen and examined the patient today. I have independentlyreviewed all the imaging and the labs. I agree with figueroa components of theresident's note above. Care plan and decision making has been discussed.Patient with obstructing duodenal mass transferred from [facility]2 months of abdominal painUnderwent lap richelle recentlySymptoms have been worse since surgeryAbd is soft and non peritonitic. RUQ tenderness noted. Drain with bileI have reviewed the CT.2 large collections and Duodenal mass. No liver or pulmonary metastasesTumor markersIR drain for abdominal fluid collection; these are likely bilomas given CBDobstruction at the time of cholecystectomyEGD/ERCP for biliary stentNeeds TPNToms MD Froilan, MPH, FACSGeneral/Trauma/HPB SurgeryPager: [phone] Cell: [phone] 2017Previous VersionDenise Graham RT 08/14/2017 1:32 AM Signed Radiology Service Progress NotePATIENT NAME: Rocio JacksonMRN: [id number] OF SERVICE: August 14, 2017TIME: 1:32 AMPATIENT [...] 87 kgResting Metabolic Rate: 1661Estimated kilocalorie needs: 3011-3813 kilocalories determined by 25-28 kcal/kgEstimated protein needs:113 [...] lb 9.6 oz) SpO2 93% BMI 29.28 kg/r9Yxsloq Labs 08/14/1803GLUC 147* -- 149*BUN 9* -- [...] assistance and weekends please page the GroupPager [phone] Stewart, RN, RN 08/14/2017 6:27 PM Signed Nursing Progress NotePatient Name: Rocio TorresdonnyMRN: [id number] Location: [place]-PK3C36/IB-PW4O-19 ____Daily Note:1800-Patient reporting a significant increase in [...] dark tea coloredfluid. Call placed to surgical oncologist to notify, he will be up to see thepatient. Repositioned for comfort, no new orders at this time.1809-Resident is in to see patient, orders to continue to monitor. Call placedto CT to determine when patient will be taken down. Per hemodialysis lab technician the patient israel the transport list and CT will be completed soon.is note was completed by: Radha Pacheco 08/14/2017 7:17 PM Signed Radiology Service Progress NotePATIENT NAME: Rocio Boudreaux: [id number] OF SERVICE: August 14, 2017TIME: 7:16 PMPATIENT IDENTITY VERIFICATION COMPLETED USING TWO (2) METHODS: Patientconfirmed name verbally and ID band matches..PATIENT GENDER DATA: MalePATIENT RELEVANT IMPLANT DATA REVIEWED: Not ApplicableCONTRAST INDUCED NEPHROPATHY RISK FACTORS: Patient age > 60 yearsCREATININE:CreatinineDa te Value Ref Range Tsivzn7108/14/2017 0.61 (L) 0.70 - 1.40 mg/dL Final08/14/2017 0.63 (L) 0.70 - 1.40 mg/dL Final eGFR-All Other RacesDate Value Ref Range Uaauxb4808/14/2017 >60 >60 . Final eGFR- AmericanDate Value Ref Range Ecsyvu4708/14/2017 >60 >60 Final P.O.C.T. RESULTS: POC done: [...] plan of care and management with the PA/UPSTAIRS MAID. I reviewed thePA/UPSTAIRS MAID's note and agree with the documented findings and plan of care.? ?Thank you for allowing us to participate in the care of this patient. Pleasecall with any questions or concerns.Lourdes Ferrari MDCrystal Downs Country Club GastroenterologyPager [phone] --------CONSULT: [facility] Gastroenterology SERVICESERVICE DATE: 08/15/2017SERVICE TIME: 9:04 AMREASON FOR CONSULT: ERCPREQUESTING PHYSICIAN: Dr. Michael JolleyPR[facility]IL[facility]: No primary care provider on file.SubjectiveMr. Jackson is a 62 year old male with PMH of CAD s/p stent x2, type 2 DM onmetformin, HTN, glaucoma, PSH of cholecystectomy (08/11/2017, ERCP 08/13/17) whowas [facility] of [facility]enum due to ulcerated mass possibleadenocarcinoma.The patient states that he had intermittent RUQ abdominal pain for sometime and became acutely worse. He subsequently underwent cholecystectomy [facility]. He had persistent pain and elevated LFT's following the richelle andunderwent ERCP on 08/13/17 which showed a duodenal mass and was biopsied. [facility] and [facility]. Following [...] 2.3, AST 285, ALT 370, and new qvzofwsllgkc80.53-->16.33.No t currently on antibiotics.FUNCTIONAL STATUS: IndependentPAST MEDICAL HISTORYDiagnosis Date- Bleeding ulcer 11/15/2016 required 5 blood transfusions- Diabetes mellitus (HCC) 2016- Glaucoma- Hypertension- Myocardial infarction 05/15/2011PAST SURGICAL HISTORYProcedure Laterality Date- ANGIOPLASTY HX 05/15/2011 2 stents s/p WI;[facility]- CHOLECYSTECTOMY 08/11/2017 [facility]No family history on file.Social HistorySubstance Use Topics- [...] by mouth once daily. Disp: Rfl: 08[place]/2017[place] [facility]00[facility] medications:oxyCODONE IR 5 mg tab(s) (ROXICODONE) [...] control as per primary service-Maintain NPO-IV Cipro implementation analyst for ERCP (ordered)D/w Dr. Nava and Dr. FerrairSIGNATURE: Gissell Serrato CNP PATIENT NAME: Rocio JacksonDATE: August 15, 2017 : 9:04 AM PAGER: [phone] M Beskid, RN, RN 08/15/2017 6:48 PM Addendum Nursing Progress NotePatient Name: Rocio JacksonMRN: [id number] Location: [facility]3C36/CT-XV8I-49 ____Daily Note:Pt phos level 2.2 - text [...] NUTRITION SUPPORT PROGRESS NOTEPATIENT NAME: Rocio JacksonMRN: [id number] OF : 1955DATE: 08/15/2017Nutritional Status: SEVERE PROTEIN [...] 87 kgResting Metabolic Rate: 1661Estimated kilocalorie needs: 6030-0893 kilocalories determined by 25-28 kcal/kgEstimated protein needs:113 [...] (192 lb 9.6 oz) SpO2 92% BMI29.28 kg/r0Cofidii Weight: Weight: 87.4 kg (192 lb 9.6 [...] -- --CA 8.7 -- 8.5 8.9Recent Labs [id number] 7*Accuchecks:Glucose, Point of Care (mg/dL)Date Value08/15/2017 141 (A)08/15/2017 154 (A)08/15/2017 138 (A)08/14/2017 148 (A)Alana Barber RD, LDPager: For further assistance and weekends please page the Group Hphqp-[phone] :3Previous Constance Patel MD 08/15/2017 2:07 PM [...] Date- ANGIOPLASTY HX 05/15/2011 2 stents s/p WI;[facility]- CHOLECYSTECTOMY 08/11/2017 [facility]Prior to Admission medications as of 08/13/17 2301Medication [...] 20 mg by mouth twice daily. 08/11/2017 [id number] Yesnitroglycerin sublingual (NITROSTAT) 0.4 mg SL tablet [...] August 15, 2017 : 2:05 PM PAGER: [phone] Rivero, RN, RN 08/15/2017 3:13 PM SignedAMBULATORY [...] instructionPATIENT / FAMILY RESPONSE: Verbalizes understanding of: QMKD-CYKFQPRFZPWZJPEDEXMMW-K orrect actions to take to reduce post procedure complicationsPRE-PROCEDURE INSTRUCTIONS-Correct action to take to follow pre-procedureinstructionsFOL LOW-UP PLAN: Complete - No need for follow-upSUPPLEMENTAL MATERIAL: Title of written material: Abcess drain and SedationinformationREFERRAL (RECOMMENDATION): NoneElectronically Signed By: Dhara Rivero RN In Department: [address]Reji Patel MD 08/15/2017 2:46 PM SignedRadiology [...] 15, 2017 : 2:45 PM PAGER/CONTACT #: [phone] Win [address] 08/15/2017 2:49 PM Signed Radiology Service Progress NotePATIENT NAME: Rocio JacksonMRN: [id number] OF SERVICE: August 15, 2017TIME: 2:48 PMPATIENT IDENTITY VERIFICATION COMPLETED USING TWO (2) METHODS: Patientconfirmed name verbally and ID band matches..PATIENT GENDER DATA: MalePATIENT RELEVANT IMPLANT DATA REVIEWED: Not ApplicableRADIOLOGY DEPARTMENT: CT; Exam(s) Completed: ABSCESS DRAINAGEPERIPHERAL IV DATA: Not applicableSIGNED BY: Jennifer Win [facility] Memorial Hospitalebruwashington 2017 2:48 PMAraul Duffy MD 08/15/2017 5:53 [...] PM(late entry)Kael Hernandez MD, 08/15/2017 7:29 PM SignedJIM TALIAFERRO COMM[facility]ITY [facility] – LAWTONRAL SURGERY PROGRESS NOTENAME: Rocio JacksonMRN: [id number] 2017 7:20 PMASSESSMENT AND PLAN:Mr. Jackson is [...] tachycardic during the day. EKG revealed A-fib. Oeifvcgx2c440 NSB, responded to bolus.IR drained 110cc dark serous fluid on 08/15- Continue pain control regimen- FEN/GI: NPO diet; mIVF- Abx: Cipro- Prophylaxis: DVT prophylaxis, IS, OOB, ambulate- Telemetry- PICC line placement- Nutrition consult for TPN- Dispo: ARLINE HERNANDEZ MDElmore [facility] Hospital SurgeryPager: [phone]*On weekends or nights (after 1800) please contact the surgery implementation analyst pager.*SUBJECTIVE: No acute issues overnight and during the day. Resting comfortablyin bed.OBJECTIVE:BP 109/58 Pulse 78 Temp 36.3 ?C (97.4 ?F) (Oral) Resp 18 Ht 172.7 cm (5'8 ) Wt 87.4 kg (192 lb 9.6 oz) SpO2 94% BMI 29.28 kg/e4LKPXEVR: alert, NADLUNGS: breathing comfortablyCARDIAC: irregularABDOMEN: mildly TTP in upper abd, mildly distended, softEXTREMITIES: warm and well perfusedDRAINS/LINES: bilious drainage from JPDate 08/14/17 1500 - 08/15/17 0659 08/15/17 0700 - 08/16/17 0659Shift 0679-2048 5919-7886 24 Hour Total 0919-9764 8911-3264 7918-4635 24 HourTotalINTAKE PO 60 60 30 30 PO 60 60 30 30 IV 2018 2018 562 459 7006 NS 0.9% 2018 2018 878 605 0836 Irrigants 20 40 30 30 Irrigant/Flush Amount In (GI Feed/Drain 08/14/17 0109 Nasogastric Right Naris18 Fr) 20 40 30 30 Shift Total 2099 2119 744 665 1409OUTPUT Urine 575 1125 425 425 Void (ml) 575 1125 425 425 Tubes 765 256 8162 330 445 775 Drain/Tube Output (Drain/Tube [facility] Right LowerQuadrant Abdomen) 260 30 370 140 70 210 Drain/Tube Output (Drain/Tube 08/15/17 1530 Assessment Right Upper Abdomen)275 275 Output (GI Feed/Drain 08/14/17 0109 Nasogastric Right Naris 18 Fr) 862 8789717 190 100 290 # of BMs Number [...] Addendum Nursing Progress NotePatient Name: Rocio Boudreaux: [id number] Location: [place] [address]/KY-VN7L-47 ____Daily Note:Late entry 21008/15 Labs drawn for start of heparin drip. INR 2.0Order to notify team when INR equal to or greater than 2.0.0350: Team notified that INR 2.0. Order to hold heparin drip until morning labsback with INR results. Will continue to monitor.0428: Text page to surgery for bladder scan of 665 ml and change in NG colorfrom bile to brownish iyf8852: SROC up to see and assess pt. Continue to monitor bladder as pt is havingno symptoms of discomfort at this time. Wait to start heparin drip until Amlabs. Continue to monitor NG output.This note was completed by: Kaye May, RN, RN 08/16/2017 6:50 PM Signed Nursing Progress NotePatient Name: Rocio Boudreaux: [id number] Location: [facility]3C36/EF-BC1N-81 ____Daily Note:729: SROC alpha paged re: PT/INR result 2.0 from morning lab work, heparin gttorder remains active, requesting clarification. A-fib on gambling monitor, IN956-143's.08: Call back recv'd, okay to start heparin [...] heparingtt and admin vitamin K. Spoke with SPEECH TEACHER for GI service, repeat PT/INR orderedfor 1200 [...] 16, 2017 : 8:03 AM PAGER/CONTACT #: [phone] Song, RN, RN 08/16/2017 8:34 AM SignedPATIENT EDUCATION TOPIC: PROCEDURE / SURGERY: Procedure/Surgery: PICCinsertion under US guidancePATIENT NAME: Rocio JacksonMRN: [id number] LOCATION: [place] [address]READINES S TO LEARNCOGNITIVE ABILITY: Alert and orientedMOTIVATION TO LEARN: EagerInterestedFAMILY SUPPORT: High - Very involved in pt careINSTRUCTION PROVIDED TO: Patient and Family memberPATIENT LEARNS BEST BY: Individual InstructionVerbal InstructionFACTORS AFFECTING LEARNING: NonePHYSICAL LIMITATIONS AFFECTING LEARNING: NoneLEARNING RESPONSEDIAGNOSIS: ADULT: Duodenal obstructionPATIENT/FAMILY RESPONSE: Verbalizes understanding of: VAUW-DDOTBXHSLCLADEIGKEOBB-H orrect actions to take to reduce post [...] Discussion: CompletedLuis Shaffer RNCATHETER PLACEMENTBrand: Charan Lot: [id number] of Lumens: 2Type of PICC: Power Injectable [...] NoneCOMPLICATIONS: NonePatient Education Materials: Placed in chartThe [facility] Central Line Insertion checklist, attached to the CentralLine-Associated Bloodstream Infection Prevention Policy, was utilized duringthis procedure.QUESTIONS or PROBLEMS: Page [phone] weekendSIGNATURE: Luis Shaffer RN PATIENT NAME: Rocio JacksonDATE: August 16, 2017 : 8:35 AM PAGER/CONTACT PHONE:Khadar Duffy MD 08/16/2017 1:47 PM Addendum SURGERY INPATIENT PROGRESS NOTESName: Rocio JacksonMRN: [id number] and Plan:62 year old male with near-obstructing [...] lb 9.6 oz) SpO2 92% BMI 29.28 kg/h4Vacchn/Output Summary (Last 24 hours) at 08/16/17 0835Last [...] Please callwith any questions or concerns.Gissell Serrato [facility] GastroenterologyOffice: Cell: NaqduiLourdes Ferrari MD 08/16/2017 6:45 PM AddendSt. Francis Regional [facility] Center Gastroenterology Progress NoteSERVICE DATE: August 16, 2017SUBJECTIVENo abd pain, n/v, f/c. Afib overnight. Passing gas. No BM.OBJECTIVEMEDICATIONSCurre saint [facility] medications:potassium phosphate 30 mmol in NaCl [...] 95%Weight:Height:Body mass index is 29.28 kg/(m2).GENERAL: NAD, THOp5UITOV: PERRLA, EOMI, normal OPCV: RRR, normal S1, [...] with any further questions or concerns.Lourdes Ferrari MDCrystal Downs Country Club GastroenterologyPg#: [phone]: Lourdes Ferrari MD PATIENT NAME: Rocio JacksonDATE: August 16, 2017 : 2:42 PM PAGER: [phone] VersionRaveronique Mayorga MD 08/16/2017 4:39 PM AddendumCONSULT: [...] 12.5 BIDPlan:Switch to metoprolol 25 TID.Monitor.CAD. Remote WI, PCI in 2013.No angina.Duodenal mass and obstructive jaundices/p perc drain placement.-plan is for ERCP with possible duodenal stent placement tomorrow.[facility] STAFF PHYSICIAN NOTE OF PERSONAL [...] 62 year old male, he [facility] in [facility]. Followed by aCardiologist in [place].History of CAD, WI s/p stent x2 in 2013, DM II, hypertension, glaucoma, recentcholecystectomy 08/11/2017, ERCP 08/13/17-showed multiple fluid collections andpartial duodenal obstruction due to ulcerated mass, possible adenocarcinoma.Subsequently transferred from [facility].-Worsening abdomina pain, leukocytosis. Followed by general surgery.s/p [...] Date- ANGIOPLASTY HX 05/15/2011 2 stents s/p WI;[facility]- CHOLECYSTECTOMY 08/11/2017 [facility]- PICC LINE INSERT/CONSULT 08/16/2017Past Family History:non contributorySocial [...] NOTES - SURGICAL SERVICESPATIENT NAME: Rocio Boudreaux: [id number] HISTORY OF PRESENT ILLNESS:No acute events overnight. [...] 87 kgResting Metabolic Rate: 1661Estimated kilocalorie needs: 7827-5923 kilocalories determined by 25-28 kcal/kgEstimated protein needs:113 - 130 grams determined by 1.3-1.5 g/kg DosingweightEstimated fluid needs: 2200 - 2400 milliliters based on 1 mL per kcalAdmission Weight: 87.4 kg (192 lb 9.6 oz)Current Weight: 87.4 kg (192 lb 9.6 oz)Body mass index is 29.28 kg/(m2). overweightALLERGIESNo Known AllergiesCurrent Facility-Administered Medications:phenol 1 [place] (CHLORASEPTIC) [address] [place] MUCOUS MEMBRANE (TOPICAL MOUTH AND THROAT) q2 [...] assistance and weekends please page the GroupPager -[phone] R Bolla, MD 08/18/2017 10:29 PM SignedPROGRESS NOTE CARDIOLOGY SERVICESERVICE DATE: August 17, 2017SERVICE TIME: 12:48 PMASSESSMENT/PLANActive Problems:Atrial fibrillation. Persistent AF, ventricular rates +/- 100Heparin infusion is off. Inr was elevated, received vitamin K prior toprocedure. Today 1.0.s/p ERCP yesterdayPlan:Continue metoprolol.Spoke to surgical UPSTAIRS MAID Boubacar Espinoza. ->kimberley is for PTHC tomorrow.Will [...] edema.PULSES: Peripheral pulses present.MEDICATIONS:Current Facility-Administered Medications:phenol 1 [place] (CHLORASEPTIC) [address] [place] MUCOUS MEMBRANE (TOPICAL MOUTH AND THROAT) q2 [...] Prior to Discharge: To Be DeterminedHealth Insurance: [facility]Living Arrangement: HomeLives With: 2 adult childrenFinancial Resources: N/APrimary Contact:Extended Emergency Contact InformationPrimary Emergency Contact: Bladimir Mullerress: [place], [place] [address]Ahgk Typgbszv: SiblingSupportive: YesOther Important Patient Contacts: NoneCAREGIVER ASSESSMENT:Caregiver [...] days? NoHas the Patient Been in a [facility] Facility in the Past 30 days? NoFREEDOM [...] 17, 2017 : 2:07 PM PAGER/CONTACT #: [phone] Zelin, MD 08/17/2017 3:21 PM SignedREGIONAL ANESTHESIOLOGY DAY OF SURGERY NOTEPATIENT NAME: Rocio Boudreaux: [id number]: 1955Procedure(s) (LRB):ERCP (N/A)Surgeon(s):Srinath NavaEstimated body mass index [...] Date- ANGIOPLASTY HX 05/15/2011 2 stents s[place]p [place];[facility]- CHOLECYSTECTOMY 08/11/2017 [facility]- PICC LINE INSERT/CONSULT 08/16/2017No family history on file.Social History:Social HistorySubstance Use Topics- Smoking status: Former Smoker Types: Cigarettes Quit date: 2010- Smokeless tobacco: Never Used- Alcohol use 1.5 oz/week 1 Cans of Beer (12oz) per week Comment: occasional beerNo current facility-administered medications on file prior to encounter.No current outpatient prescriptions on file prior to encounter.Inpatient medications reviewed in [facility].I have interviewed and examined the patient. I have reviewed the medical recordand/or the pre-anesthesia evaluation, pertinent labs, and test results.Significant changes in the patient's condition since the History and Physical,not otherwise documented in primary service progress notes: [facility] updated information obtained within 48 hours [...] NOTES - SURGICAL SERVICESPATIENT NAME: Rocio TorresdonnyMRN: [id number] HISTORY OF PRESENT ILLNESS:No acute events overnight. [...] care: IS, EVERETT HERNANDEZ MD (Res)General SurgeryPager: [phone]*On weekends or nights (after 1800) please contact the surgery implementation analyst pager.*Attending: ERCP results noted. Unable to cannulate [...] (HumaLOG) SUBCUTANEOUS w MEALS AND HSphenol 1 [place] (CHLORASEPTIC) [address] [place] MUCOUS MEMBRANE (TOPICAL MOUTH AND THROAT) q2 [...] duodenal tube placement for feeding-continue to followMónica WeberWadena Clinic GastroenterologyThank you for allowing us to participate in the care of this patient. Pleasecall with questions or concerns.SIGNATURE: Linda Avalos CNP PATIENT NAME: Rocio JacksonDATE: August 18, 2017 : 1:20 PM PAGER: [phone] Barsa, RD, LD 08/18/2017 1:39 PM SignedNUTRITION THERAPY PROGRESS NOTESERVICE DATE: 08/18/2017SERVICE TIME: 1:24 PMRECOMMENDED DIAGNOSIS: SEVERE PROTEIN-CALORIE MALNUTRITION per RegisteredDietitian on 08/14NUTRITION CARE PLANIntervention:Diet NPOAdvance to clearsMonitor and Evaluation:Goal: Meet >75% of estimated needsMonitor fluid/electrolyte balanceMonitor labs, I/Os, vital signs, weightDischarge Nutrition Recommendations:To be bzealoblai44 year old male with a history notable [...] (HumaLOG) SUBCUTANEOUS w MEALS AND HSphenol 1 [employer] [place] (CHLORASEPTIC) [address] [place] MUCOUS MEMBRANE (TOPICAL MOUTH AND THROAT) q2 [...] assistance and weekends please page the GroupPager [phone] Berardi, RN, RN 08/18/2017 2:30 PM SignedMULTIDISCIPLINARY ROUNDSSERVICE DATE: 08/18/2017 ADMISSION DATE: 08/13/2017SERVICE TIME: 2:27 PM ANTICIPATED D/C DATE: 1-3 daysProblem List:ACTIVE PROBLEM LISTDuodenal ObstructionSevere Protein-Calorie Malnutrition (Hcc)Attendees Present at Rounds:Feed Project Engineer: Roderick Nurse: Laura Discussed on Rounds:Discharge NeedsPlan [...] August 18, 2017 : 2:27 PM CSN: [id number] Webster RN, RN 08/19/2017 3:24 AM Signed Nursing Progress NotePatient Name: Rocio JacksonMRN: [id number] Location: [place] [id number] ____ Pt with mild abd pain of 3 or less tonight. Tylenol controlling. Pt aware ifneeded may have pain pills. Accordian drain flushed at 2100 per order forpositive return of sterile NS and brown liquid.This note was completed by: Vipul Das RN, RN 08/19/2017 11:47 AM SignedPATIENT EDUCATION TOPIC: PROCEDURE / SURGERY: Procedure/Surgery: PTHCPATIENT NAME: Rocio Boudreaux: [id number] LOCATION: [place] [id number] S TO LEARNCOGNITIVE ABILITY: Alert and orientedMOTIVATION TO LEARN: EagerInterestedFAMILY SUPPORT: Unable to assess - Family not presentINSTRUCTION PROVIDED TO: PatientPATIENT LEARNS BEST BY: Individual InstructionWritten Instruction - Hand-outsVerbal InstructionFACTORS AFFECTING LEARNING: NonePHYSICAL LIMITATIONS AFFECTING LEARNING: NoneLEARNING RESPONSEDIAGNOSIS: ADULT: Duodenal massPATIENT/FAMILY RESPONSE: Verbalizes understanding of: [id number] orrect actions to take to reduce post [...] no rubs, murmurs, or gallopsProvisional Diagnosis/Treatment Plan: [facility] wGeneral AnesthesiaThis HANDP can be found in the attached.SIGNATURE: Vanessa Garcia MD PATIENT NAME: Rociomarisa JacksonDATE: August 19, 2017 : 12:47 PM PAGER: [phone] Lopez RD, LD 08/19/2017 2:22 PM SignedNUTRITION [...] 87 kgResting Metabolic Rate: 1661Estimated kilocalorie needs: 5721-5364 kilocalories determined by 25-28 kcal/kgEstimated protein needs:113 [...] kg (192 lb) SpO2 98% BMI 29.19 kg/f9Djdyjj Labs GLUC 144*BUN 7*CREAT 0.58*NA 142K 3.4*CHLOR [...] 5,000 Units SUBCUTANEOUS q 8 Hphenol [address] [employer] [place] (CHLORASEPTIC) [address] [place] MUCOUS MEMBRANE (TOPICAL MOUTH AND THROAT) q2 [...] assistance and weekends please page the GroupPager -[phone] Tritle, MD 08/19/2017 2:57 PM SignedBRIEF OPERATIVE / PROCEDURE NOTESurgery/Procedure Date: 08/19/17Incision/Procedure Start Time:Incision Close/Procedure End Time:Surgeon(s)/Proceduralis t(s) and Solar Field Service Technician(s):Dusty Garcia - PrimaryProcedure(s): R PTHC and Int/Ext biliary drainAnesthesia: GeneralFindings: Mildly dilated IH ducts. NO filling defects. Severe D2-3 strictureEstimated Blood Loss: MinimalSpecimens: NoneComplications: NonePre-Op/Pre-Procedure Diagnosis: Duodenal massPost-Op/Post-Procedure Diagnosis: SameSIGNATURE: Vanessa Garcia MD PATIENT NAME: Rocio TorresdonnyDATE: August 19, 2017 : 2:56 PM PAGER/CONTACT #: Normal [facility] Vital Signs Date Time Vital Sign Value Performing Clinician Facility 07-15-2024 14:07-0500 Body temperature 97.3 [degF] Zahra May MD Work Phone: [facility] 07-15-2024 14:07-0500 Diastolic blood pressure 63 mm[Hg] Zahra May MD Work Phone: [facility] 07-15-2024 14:07-0500 Heart rate 85 /min Zahra May MD Work Phone: [facility] 07-15-2024 14:07-0500 Respiratory rate 18 /min Zahra May MD Work Phone: [facility] 07-15-2024 14:07-0500 SaO2% (BldA) [Mass fraction] 100 % Zahra May MD Work Phone: [facility] 07-15-2024 14:07-0500 Systolic blood pressure 94 mm[Hg] Zahra May MD Work Phone: [facility] 06-16-2024 14:52-0500 Diastolic blood pressure 48 mm[Hg] Zahra May MD Work Phone: [facility] Comment on above: recheck 06-16-2024 14:52-0500 Systolic blood pressure 78 mm[Hg] Zahra May MD Work Phone: [facility] Comment on above: recheck 06-16-2024 14:47-0500 Body height 170.8 cm Zahra May MD Work Phone: [facility] 06-16-2024 14:47-0500 Body temperature 97.2 [degF] Zahra May MD Work Phone: [facility] 06-16-2024 14:47-0500 Heart rate 49 /min Zahra May MD Work Phone: [facility] 06-16-2024 14:47-0500 Respiratory rate 16 /min Zahra May MD Work Phone: [facility] 06-16-2024 14:47-0500 SaO2% (BldA) [Mass fraction] 100 % Zahra May MD Work Phone: [facility] 05-06-2024 13:59-0500 Body height 166.37 cm [facility] 05-06-2024 13:59-0500 Body mass index (BMI) [Ratio] 22.7 kg/m2 [facility] 05-06-2024 13:59-0500 Body weight 63 kg [facility] 05-06-2024 13:59-0500 Diastolic blood pressure 66 mm[Hg] [facility] 05-06-2024 13:59-0500 Heart rate 89 /min [facility] 05-06-2024 13:59-0500 Systolic blood pressure 104 mm[Hg] [facility] 04-28-2024 14:52-0400 Body temperature 97 [degF] Ma Sand Work Phone: [facility] 04-28-2024 14:52-0400 Diastolic blood pressure 50 mm[Hg] Ma Sand Work Phone: [facility] 04-28-2024 14:52-0400 Heart rate 106 /min Ma Sand Work Phone: [facility] 04-28-2024 14:52-0400 Respiratory rate 18 /min Ma Sand Work Phone: [facility] 04-28-2024 14:52-0400 SaO2% (BldA) [Mass fraction] 98 % Ma Sand Work Phone: [facility] 04-28-2024 14:52-0400 Systolic blood pressure 78 mm[Hg] Ma Sand Work Phone: [facility] 03-10-2024 14:24-0400 Body temperature 97.7 [degF] Zahra May MD Work Phone: [facility] 03-10-2024 14:24-0400 Diastolic blood pressure 66 mm[Hg] Zahra May MD Work Phone: [facility] 03-10-2024 14:24-0400 Heart rate 79 /min Zahra May MD Work Phone: [facility] 03-10-2024 14:24-0400 Respiratory rate 16 /min Zahra May MD Work Phone: [facility] 03-10-2024 14:24-0400 SaO2% (BldA) [Mass fraction] 98 % Zahra May MD Work Phone: [facility] 03-10-2024 14:24-0400 Systolic blood pressure 98 mm[Hg] Zahra May MD Work Phone: [facility] 03-03-2024 13:12-0400 Diastolic blood pressure 66 mm[Hg] Ma Sand Work Phone: [facility] 03-03-2024 13:12-0400 Heart rate 80 /min Ma Sand Work Phone: [facility] 03-03-2024 13:12-0400 Respiratory rate 20 /min Ma Sand Work Phone: [facility] 03-03-2024 13:12-0400 SaO2% (BldA) [Mass fraction] 97 % Ma Sand Work Phone: [facility] 03-03-2024 13:12-0400 Systolic blood pressure 95 mm[Hg] Ma Sand Work Phone: [facility] 01-29-2024 15:18-0400 Body temperature 97.7 [degF] Ma Sand Work Phone: [facility] 01-29-2024 15:18-0400 Diastolic blood pressure 65 mm[Hg] Ma Sand Work Phone: [facility] 01-29-2024 15:18-0400 Heart rate 108 /min Ma Sand Work Phone: [facility] 01-29-2024 15:18-0400 Respiratory rate 16 /min Ma Sand Work Phone: [facility] 01-29-2024 15:18-0400 SaO2% (BldA) [Mass fraction] 98 % Ma Sand Work Phone: [facility] 01-29-2024 15:18-0400 Systolic blood pressure 99 mm[Hg] Ma Sand Work Phone: [facility] 01-08-2024 15:25-0400 Body temperature 97.59 [degF] Ma Sand Work Phone: [facility] 01-08-2024 15:25-0400 Diastolic blood pressure 68 mm[Hg] Ma Sand Work Phone: [facility] 01-08-2024 15:25-0400 Heart rate 88 /min Ma Sand Work Phone: [facility] 01-08-2024 15:25-0400 Respiratory rate 16 /min Ma Sand Work Phone: [facility] 01-08-2024 15:25-0400 SaO2% (BldA) [Mass fraction] 97 % Ma Sand Work Phone: [facility] 01-08-2024 15:25-0400 Systolic blood pressure 101 mm[Hg] Ma Sand Work Phone: [facility] 12-24-2023 14:07-0400 Body height 166.37 cm [facility] 12-24-2023 14:07-0400 Body mass index (BMI) [Ratio] 23.1 kg/m2 [facility] 12-24-2023 14:07-0400 Body weight 63.95 kg [facility] 12-24-2023 14:07-0400 Diastolic blood pressure 66 mm[Hg] [facility] 12-24-2023 14:07-0400 Heart rate 76 /min [facility] 12-24-2023 14:07-0400 Systolic blood pressure 101 mm[Hg] [facility] 12-03-2023 15:01-0400 Body temperature 97.11 [degF] Zahra May MD Work Phone: [facility] 12-03-2023 15:01-0400 Diastolic blood pressure 66 mm[Hg] Zahra May MD Work Phone: [facility] 12-03-2023 15:01-0400 Heart rate 96 /min Zahra May MD Work Phone: [facility] 12-03-2023 15:01-0400 Respiratory rate 18 /min Zahra May MD Work Phone: [facility] 12-03-2023 15:01-0400 SaO2% (BldA) [Mass fraction] 98 % Zahra May MD Work Phone: [facility] 12-03-2023 15:01-0400 Systolic blood pressure 102 mm[Hg] Zahra May MD Work Phone: [facility] 11-27-2023 13:38-0400 Body height 166.37 cm [facility] 11-27-2023 13:38-0400 Body mass index (BMI) [Ratio] 23.1 kg/m2 [facility] 11-27-2023 13:38-0400 Body weight 63.95 kg [facility] 11-27-2023 13:38-0400 Diastolic blood pressure 63 mm[Hg] [facility] 11-27-2023 13:38-0400 Heart rate 92 /min [facility] 11-27-2023 13:38-0400 Systolic blood pressure 98 mm[Hg] [facility] 11-05-2023 14:25-0400 Body temperature 97.3 [degF] Ma Sand Work Phone: [facility] 11-05-2023 14:25-0400 Diastolic blood pressure 64 mm[Hg] Ma Sand Work Phone: [facility] 11-05-2023 14:25-0400 Heart rate 95 /min Ma Sand Work Phone: [facility] 11-05-2023 14:25-0400 Respiratory rate 18 /min Ma Sand Work Phone: [facility] 11-05-2023 14:25-0400 SaO2% (BldA) [Mass fraction] 99 % Ma Sand Work Phone: [facility] 11-05-2023 14:25-0400 Systolic blood pressure 100 mm[Hg] Ma Sand Work Phone: [facility] 10-29-2023 14:36-0400 Body height 172.7 cm Irving Abreu DO Work Phone: [facility] 10-29-2023 14:36-0400 Body mass index (BMI) [Ratio] 21.44 kg/m2 Irving Abreu DO Work Phone: [facility] 10-29-2023 14:36-0400 Body weight 63.96 kg Irving Abreu DO Work Phone: [facility] Comment on above: unable say he weight in 141 10-29-2023 14:36-0400 Diastolic blood pressure 80 mm[Hg] Irving Abreu DO Work Phone: [facility] 10-29-2023 14:36-0400 Heart rate 84 /min Irving Abreu DO Work Phone: [facility] 10-29-2023 14:36-0400 Systolic blood pressure 120 mm[Hg] Irving Abreu DO Work Phone: [facility] 10-08-2023 14:54-0400 Body temperature 97.39 [degF] Ma Sand Work Phone: [facility] 10-08-2023 14:54-0400 Diastolic blood pressure 53 mm[Hg] Ma Sand Work Phone: [facility] 10-08-2023 14:54-0400 Heart rate 76 /min Ma Sand Work Phone: [facility] 10-08-2023 14:54-0400 Respiratory rate 18 /min Ma Sand Work Phone: [facility] 10-08-2023 14:54-0400 SaO2% (BldA) [Mass fraction] 98 % Ma Sand Work Phone: [facility] 10-08-2023 14:54-0400 Systolic blood pressure 95 mm[Hg] Ma Sand Work Phone: [facility] 09-11-2023 13:59-0400 Body height 166.37 cm DO Rick Rivass Work Phone: [facility] 09-11-2023 13:59-0400 Body mass index (BMI) [Ratio] 22.9 kg/m2 DO Rick Rivass Work Phone: [facility] 09-11-2023 13:59-0400 Body weight 63.5 kg DO Rick Rivass Work Phone: [facility] 09-11-2023 13:59-0400 Diastolic blood pressure 68 mm[Hg] DO Rick Rivass Work Phone: [facility] 09-11-2023 13:59-0400 Heart rate 80 /min DO Rick Rivass Work Phone: [facility] 09-11-2023 13:59-0400 SaO2% (BldA) [Mass fraction] 99 % DO Rick Rivass Work Phone: [facility] 09-11-2023 13:59-0400 Systolic blood pressure 99 mm[Hg] DO Rikc Rivass Work Phone: [facility] 09-10-2023 13:55-0400 Body height 170.8 cm Zahra May MD Work Phone: [facility] 09-10-2023 13:55-0400 Body temperature 97.11 [degF] Zahra May MD Work Phone: [facility] 09-10-2023 13:55-0400 Diastolic blood pressure 69 mm[Hg] Zahra May MD Work Phone: [facility] 09-10-2023 13:55-0400 Heart rate 83 /min Zahra May MD Work Phone: [facility] 09-10-2023 13:55-0400 Respiratory rate 16 /min Zahra May MD Work Phone: [facility] 09-10-2023 13:55-0400 SaO2% (BldA) [Mass fraction] 97 % Zahra May MD Work Phone: [facility] 09-10-2023 13:55-0400 Systolic blood pressure 113 mm[Hg] Zahra May MD Work Phone: [facility] 08-27-2023 14:03-0500 Body height 166.37 cm DO Rick Zapata Work Phone: [facility] 08-27-2023 14:03-0500 Body mass index (BMI) [Ratio] 22.9 kg/m2 DO Rick Rivass Work Phone: [facility] 08-27-2023 14:03-0500 Body weight 63.5 kg DO Rick Rivass Work Phone: [facility] 08-27-2023 14:03-0500 Diastolic blood pressure 71 mm[Hg] DO Rick Brennanillis Work Phone: [facility] 08-27-2023 14:03-0500 Heart rate 96 /min DO Rick Brennanillis Work Phone: [facility] 08-27-2023 14:03-0500 SaO2% (BldA) [Mass fraction] 99 % DO Rick Brennanillis Work Phone: [facility] 08-27-2023 14:03-0500 Systolic blood pressure 114 mm[Hg] DO Rick Brennanillis Work Phone: [facility] 06-04-2023 13:30-0500 Body height 168.91 cm David Caputo Other [employer] Other 06-04-2023 13:30-0500 Body mass index (BMI) [Ratio] 20.67 kg/m2 David Caputo Other [employer] Other 06-04-2023 13:30-0500 Body weight 58.97 kg David Caputo Other [employer] Other 06-04-2023 13:30-0500 Diastolic blood pressure 63 mm[Hg] David Caputo Other [employer] Other 06-04-2023 13:30-0500 Systolic blood pressure 99 mm[Hg] David Captuo Other [employer] Other 04-09-2023 14:57-0400 Body height 170.8 cm Ma Sand Work Phone: [facility] 04-09-2023 14:57-0400 Body temperature 97.39 [degF] Ma Sand Work Phone: [facility] 04-09-2023 14:57-0400 Body weight 50.8 kg Ma Sand Work Phone: [facility] 04-09-2023 14:57-0400 Diastolic blood pressure 66 mm[Hg] Ma Sand Work Phone: [facility] 04-09-2023 14:57-0400 Heart rate 93 /min Ma Sand Work Phone: [facility] 04-09-2023 14:57-0400 Respiratory rate 16 /min Ma Sand Work Phone: [facility] 04-09-2023 14:57-0400 SaO2% (BldA) [Mass fraction] 97 % Ma Sand Work Phone: [facility] 04-09-2023 14:57-0400 Systolic blood pressure 108 mm[Hg] Ma Sand Work Phone: [facility] 03-11-2023 10:36-0400 Body height 170.8 cm Zahra May MD Work Phone: [facility] 03-11-2023 10:36-0400 Body temperature 97.39 [degF] Zahra May MD Work Phone: [facility] 03-11-2023 10:36-0400 Diastolic blood pressure 81 mm[Hg] Zahra May MD Work Phone: [facility] 03-11-2023 10:36-0400 Heart rate 83 /min Zahra May MD Work Phone: [facility] 03-11-2023 10:36-0400 Respiratory rate 18 /min Zahra May MD Work Phone: [facility] 03-11-2023 10:36-0400 SaO2% (BldA) [Mass fraction] 100 % Zahra May MD Work Phone: [facility] 03-11-2023 10:36-0400 Systolic blood pressure 118 mm[Hg] Zahra May MD Work Phone: [facility] 03-05-2023 14:30-0400 Body height 168.91 cm David Caputo Other [employer] Other 03-05-2023 14:30-0400 Body mass index (BMI) [Ratio] 20.67 kg/m2 David Caputo Other [facility] Other 03-05-2023 14:30-0400 Body weight 58.97 kg David Caputo Other [facility] Other 03-05-2023 14:30-0400 Diastolic blood pressure 66 mm[Hg] David Caputo Other [employer] Other 03-05-2023 14:30-0400 Systolic blood pressure 107 mm[Hg] David Bolton [facility] Other 02-19-2023 15:22-0400 Body temperature 97.5 [degF] Zahra May MD Work Phone: [facility] 02-19-2023 15:22-0400 Body weight 50.8 kg Zahra May MD Work Phone: [facility] 02-19-2023 15:22-0400 Diastolic blood pressure 63 mm[Hg] Zahra May MD Work Phone: [facility] 02-19-2023 15:22-0400 Heart rate 98 /min Zahra May MD Work Phone: [facility] 02-19-2023 15:22-0400 Respiratory rate 18 /min Zahra May MD Work Phone: [facility] 02-19-2023 15:22-0400 SaO2% (BldA) [Mass fraction] 97 % Zahra May MD Work Phone: [facility] 02-19-2023 15:22-0400 Systolic blood pressure 98 mm[Hg] Zahra May MD Work Phone: [facility] 02-12-2023 08:05-0400 PAIN LEVEL 0 {score} Dr. Adriane Mccoy [facility] 02-12-2023 04:59-0400 PAIN LEVEL 0 {score} Dr. Adriane Mccoy [facility] 02-12-2023 04:01-0400 Body temperature 98.8 [degF] Dr. Adriane Mccoy [facility] 02-12-2023 04:01-0400 Diastolic blood pressure 72 mm[Hg] Dr. Adriane Espitia [facility] 02-12-2023 04:01-0400 Heart rate 87 /min Dr. Adriane Mccoy [facility] 02-12-2023 04:01-0400 Respiratory rate 17 /min Dr. Adriane Mccoy [facility] 02-12-2023 04:01-0400 Systolic blood pressure 114 mm[facility]Hg[facility]-11-[facility] 16:27-0400 Body temperature 98.5 [degF] Dr. Adriane Mccoy [facility] 02-11-2023 16:27-0400 Diastolic blood pressure 72 mm[Hg] Dr. Adriane Espitia [facility] 02-11-2023 16:27-0400 Heart rate 74 /min Dr. Adriane Mccoy [facility] 02-11-2023 16:27-0400 Respiratory rate 16 /[facility] 16:27-0400 Systolic blood pressure 113 mm[Hg] Dr. Adriane Espitia [facility] 02-11-2023 08:28-0400 PAIN LEVEL 0 {score} Dr. Adriane Mccoy [facility] 02-11-2023 05:16-0400 PAIN LEVEL 0 {score} Dr. Adriane Mccoy [facility] 02-11-2023 01:47-0400 Body temperature 98.2 [degF] Dr. Adriane Mccoy [facility] 02-11-2023 01:47-0400 Diastolic blood pressure 76 mm[Hg] Dr. Adriane Espitia [facility] 02-11-2023 01:47-0400 Heart rate 80 /min Dr. Adriane Mccoy [facility] 02-11-2023 01:47-0400 Respiratory rate 17 /min Dr. Adriane Mccoy [facility] 02-11-2023 01:47-0400 Systolic blood pressure 110 mm[Hg] [facility]. [facility] [facility] 16:22-0400 Body temperature 98.5 [degF] Dr. Adriane Mccoy [facility] 02-10-2023 16:22-0400 Diastolic blood pressure 73 mm[Hg] [facility]-10-[facility]23 16:22-0400 Heart rate 73 /min Dr. Adriane Mccoy [facility] 02-10-2023 16:22-0400 Respiratory rate 20 /[facility]-10-[facility]23 16:22-0400 Systolic blood pressure 110 mm[Hg] Dr. Adriane Espitia [facility] 02-10-2023 08:58-0400 PAIN LEVEL 0 {score} Dr. Adriane Mccoy [facility] 02-10-2023 03:21-0400 Body temperature 98.5 [degF] Dr. Adriane Mccoy [facility] 02-10-2023 03:21-0400 Diastolic blood pressure 67 mm[Hg] Dr. Adriane Espitia [facility] 02-10-2023 03:21-0400 Heart rate 76 /min Dr. Adriane Mccoy [facility] 02-10-2023 03:21-0400 Respiratory rate 17 /min Dr. Adriane Mccoy [facility] 02-10-2023 03:21-0400 Systolic blood pressure 104 mm[Hg] [facility] 02-10-2023 02:32-0400 PAIN LEVEL 0 {score} Dr. Adriane Mccoy [facility] 02-09-2023 19:58-0400 PAIN LEVEL 1 {score} Dr. Adriane Mccoy [facility] 02-09-2023 18:46-0400 PAIN LEVEL 3 {score} Dr. Adriane Mccoy [facility] 02-09-2023 16:19-0400 Body temperature 98.8 [degF] Dr. Adriane Mccoy [facility] 02-09-2023 16:19-0400 Diastolic blood pressure 71 mm[Hg] Dr. Adriane Espitia [facility] 02-09-2023 16:19-0400 Heart rate 81 /[facility]-09-2023 16:19-0400 Respiratory rate 18 /min Dr. Adriane Mccoy [facility] 02-09-2023 16:19-0400 Systolic blood pressure 113 mm[Hg] Dr. Adriane Espitia [facility] 02-09-2023 08:24-0400 PAIN LEVEL 0 {score} Dr. Adriane Mccoy [facility] 02-09-2023 02:56-0400 PAIN LEVEL 0 {score} Dr. Adriane Mccoy [facility] 02-08-2023 19:51-0400 Body temperature 97.4 [degF] Dr. Adriane Mccoy [facility] 02-08-2023 19:51-0400 Diastolic blood pressure 77 mm[Hg] [facility] 02-08-2023 19:51-0400 Heart rate 79 /min Dr. Adriane Mccoy [facility] 02-08-2023 19:51-0400 Respiratory rate 16 /min Dr. Adriane Mccoy [facility] 02-08-2023 19:51-0400 Systolic blood pressure 117 mm[Hg] [facility] 02-08-2023 13:37-0400 Body weight 60.[address] Adriane Mccoy [facility] 02-08-2023 08:24-0400 PAIN LEVEL 0 {score} [facility]-07-2023 17:47-0400 Body temperature 97.5 [degF] Dr. Adriane Mccoy [facility] 02-07-2023 17:47-0400 Diastolic blood pressure 68 mm[Hg] [facility] 02-07-2023 17:47-0400 Heart rate 83 /min Dr. Adriane Mccoy [facility] 02-07-2023 17:47-0400 Respiratory rate 20 /min Dr. Adriane Mccoy [facility] 02-07-2023 17:47-0400 Systolic blood pressure 119 mm[Hg] Dr. Adriane Espitia [facility] 02-07-2023 13:59-0400 Body temperature 98.1 [degF] Dr. Adriane Mccoy [facility] 02-07-2023 13:59-0400 Diastolic blood pressure 87 mm[Hg] [facility] 02-07-2023 13:59-0400 Heart rate 77 /min Dr. Adriane Mccoy [facility] 02-07-2023 13:59-0400 Respiratory rate 20 /min Dr. Adriane Mccoy [facility] 02-07-2023 13:59-0400 Systolic blood pressure 146 mm[Hg] [facility] 02-07-2023 08:51-0400 PAIN LEVEL 0 {score} Dr. Adriane Mccoy [facility] 02-07-2023 05:11-0400 Body temperature 98 [degF] Dr. Adriane Lunamir [facility] 02-07-2023 05:11-0400 Diastolic blood pressure 72 mm[Hg] [facility] 02-07-2023 05:11-0400 Heart rate 70 /min Dr. Adriane Mccoy [facility] 02-07-2023 05:11-0400 Respiratory rate 16 /min Dr. Adriane Espitia [facility] 02-07-2023 05:11-0400 Systolic blood pressure 112 mm[Hg] [facility] 02-07-2023 01:10-0400 PAIN LEVEL 0 {score} Dr. Adriane Mccoy [facility] 02-06-2023 18:12-0400 Body temperature 98.2 [degF] Dr. Adriane Mccoy [facility] 02-06-2023 18:12-0400 Diastolic blood pressure 74 mm[Hg] [facility] 02-06-2023 18:12-0400 Heart rate 72 /[facility]-06-2023 18:12-0400 Respiratory rate 17 /[facility] 02-06-2023 18:12-0400 Systolic blood pressure 116 mm[Hg] [facility] 02-06-2023 17:16-0400 PAIN LEVEL 0 {score} Dr. Adriane Mccoy [facility] 02-06-2023 09:10-0400 PAIN LEVEL 0 {score} Dr. Adriane Espitia [facility] 02-06-2023 03:23-0400 PAIN LEVEL 0 {score} [facility]-06-2023 01:40-0400 Body temperature 98.7 [degF] Dr. Adriane Mccoy [facility] 02-06-2023 01:40-0400 Diastolic blood pressure 73 mm[Hg] Dr. Adriane Espitia [facility] 02-06-2023 01:40-0400 Heart rate 83 /[facility] 02-06-2023 01:40-0400 Respiratory rate 16 /min Dr. Adriane Mccoy [facility] 02-06-2023 01:40-0400 Systolic blood pressure 121 mm[Hg] Dr. Adriane Espitia [facility] 02-05-2023 18:38-0400 Body temperature 99 [degF] Dr. Adriane Mccoy [facility] 02-05-2023 18:38-0400 Diastolic blood pressure 67 mm[Hg] Dr. Adriane Espitia [facility] 02-05-2023 18:38-0400 Heart rate 81 /[facility] 02-05-2023 18:38-0400 Respiratory rate 18 /min Dr. Adriane Mccoy [facility] 02-05-2023 18:38-0400 Systolic blood pressure 105 mm[Hg] Dr. Adriane Espitia [facility] 02-05-2023 14:45-0400 Body temperature 97.6 [degF] Dr. Adriane Espitia [facility] 02-05-2023 14:45-0400 Diastolic blood pressure 65 mm[Hg] Dr. Adriane Espitia [facility] 02-05-2023 14:45-0400 Heart rate 64 /[facility] 02-05-2023 14:45-0400 Respiratory rate 16 /min Dr. Adriane Espitia [facility] 02-05-2023 14:45-0400 Systolic blood pressure 96 mm[Hg] Dr. Adriane Espitia [facility] 02-05-2023 08:13-0400 PAIN LEVEL 0 {score} Dr. Adriane Mccoy [facility] 02-05-2023 08:11-0400 PAIN LEVEL 0 {score} [facility] 02-05-2023 05:35-0400 Body temperature 97.5 [degF] Dr. Adriane Lunamir [facility] 02-05-2023 05:35-0400 Diastolic blood pressure 71 mm[Hg] Dr. Adriane Espitia [facility] 02-05-2023 05:35-0400 Heart rate 73 /min Dr. Adriane Espitia [facility] 02-05-2023 05:35-0400 Respiratory rate 17 /[facility] 02-05-2023 05:35-0400 Systolic blood pressure 109 mm[Hg] Dr. Adriane Espitia [facility] 02-05-2023 03:14-0400 PAIN LEVEL 3 {score} Dr. Adriane Espitia [facility] 02-05-2023 02:33-0400 PAIN LEVEL 2 {score} Dr. Adriane Espitia [facility] 02-04-2023 08:52-0400 PAIN LEVEL 0 {score} [facility] 02-04-2023 01:24-0400 Body temperature 98.6 [degF] [facility] 02-04-2023 01:24-0400 Diastolic blood pressure 66 mm[Hg] Dr. Adriane Espitia [facility] 02-04-2023 01:24-0400 Heart rate 81 /[facility] 02-04-2023 01:24-0400 Respiratory rate 17 /[facility] 02-04-2023 01:24-0400 Systolic blood pressure 106 mm[Hg] Dr. Adriane Espitia [facility] 02-03-2023 16:05-0400 Body temperature 98.4 [degF] Dr. Adriane Lunamir [facility] 02-03-2023 16:05-0400 Diastolic blood pressure 82 mm[Hg] Dr. Adriane Espitia [facility] 02-03-2023 16:05-0400 Heart rate 82 /min Dr. Adriane Mccoy [facility] 02-03-2023 16:05-0400 Respiratory rate 17 /min Dr. Adriane Espitia [facility] 02-03-2023 16:05-0400 Systolic blood pressure 123 mm[Hg] Dr. Adriane Espitia [facility] 02-03-2023 08:39-0400 PAIN LEVEL 0 {score} [facility] 02-03-2023 00:36-0400 Oxygen saturation in Blood 95 % Dr. Adriane Espitia [facility] 02-03-2023 00:34-0400 Diastolic blood pressure 71 mm[Hg] Dr. Adriane Espitia [facility] 02-03-2023 00:34-0400 Systolic blood pressure 113 mm[Hg] Dr. Adriane Espitia [facility] 02-03-2023 00:33-0400 Respiratory rate 17 /min Dr. Adriane Espitia [facility] 02-03-2023 00:30-0400 Heart rate 62 /min Dr. Adriane Espitia [facility] 02-03-2023 00:29-0400 Body temperature 98.3 [degF] Dr. Adriane Mccoy [facility] 02-02-2023 23:38-0400 PAIN LEVEL 0 {score} Dr. Adriane Mccoy [facility] 02-02-2023 15:55-0400 Body temperature 97.4 [degF] Dr. Adriane Mccoy [facility] 02-02-2023 15:55-0400 Diastolic blood pressure 68 mm[Hg] Dr. Adriane Mccoy [facility] 02-02-2023 15:55-0400 Heart rate 80 /min Dr. Adriane Mccoy [facility] 02-02-2023 15:55-0400 Respiratory rate 16 /min Dr. Adriane Mccoy [facility] 02-02-2023 15:55-0400 Systolic blood pressure 105 mm[Hg] Dr. Adriane Espitia [facility] 02-02-2023 12:21-0400 Body temperature 97.6 [degF] Dr. Adriane Mccoy [facility] 02-02-2023 12:21-0400 Diastolic blood pressure 81 mm[Hg] Dr. Adriane Espitia [facility] 02-02-2023 12:21-0400 Heart rate 81 /min Dr. Adriane Mccoy [facility] 02-02-2023 12:21-0400 Respiratory rate 16 /[facility]-02-2023 12:21-0400 Systolic blood pressure 131 mm[Hg] Dr. Adriane Espitia [facility] 02-02-2023 08:10-0400 PAIN LEVEL 0 {score} Dr. Adriane Mccoy [facility] 02-02-2023 02:12-0400 Body temperature 98.1 [degF] Dr. Adriane Mccoy [facility] 02-02-2023 02:12-0400 Diastolic blood pressure 70 mm[Hg] [facility] 02-02-2023 02:12-0400 Heart rate 71 /min Dr. Adriane Mccoy [facility] 02-02-2023 02:12-0400 Respiratory rate 18 /min Dr. Adriane Mccoy [facility] 02-02-2023 02:12-0400 Systolic blood pressure 112 mm[Hg] Dr. Adriane Espitia [facility] 02-02-2023 00:43-0400 PAIN LEVEL 0 {score} Dr. Adriane Mccoy [facility] 02-01-2023 22:14-0400 Oxygen saturation in Blood 94 % Dr. Adriane Espitia [facility] 02-01-2023 22:11-0400 Oxygen saturation in Blood 94 % Dr. Adriane Espitia [facility] 02-01-2023 17:18-0400 PAIN LEVEL 0 {score} Dr. Adriane Mccoy [facility] 02-01-2023 15:46-0400 Body temperature 98.3 [degF] Dr. Adriane Mccoy [facility] 02-01-2023 15:46-0400 Diastolic blood pressure 70 mm[Hg] Dr. Adriane Espitia [facility] 02-01-2023 15:46-0400 Heart rate 70 /min Dr. Adriane Mccoy [facility] 02-01-2023 15:46-0400 Respiratory rate 19 /min Dr. Adriane Lunamir [facility] 02-01-2023 15:46-0400 Systolic blood pressure 109 mm[Hg] Dr. Adriane Espitia [facility] 02-01-2023 14:56-0400 Body weight 65.[address] [facility] 02-01-2023 14:36-0400 Body temperature 98.4 [degF] Dr. Adriane Mccoy [facility] 02-01-2023 14:36-0400 Diastolic blood pressure 80 mm[Hg] Dr. Adriane Espitia [facility] 02-01-2023 14:36-0400 Heart rate 70 /[facility] 02-01-2023 14:36-0400 Respiratory rate 18 /[facility] 02-01-2023 14:36-0400 Systolic blood pressure 135 mm[Hg] Dr. Adriane Espitia [facility] 02-01-2023 14:26-0400 Body weight 65.[address] [facility] 02-01-2023 09:47-0400 PAIN LEVEL 0 {score} Dr. Adriane Lunamir [facility] 02-01-2023 05:16-0400 Body temperature 97.6 [degF] Dr. Adriane Mccoy [facility] 02-01-2023 05:16-0400 Diastolic blood pressure 71 mm[Hg] Dr. Adriane Espitia [facility] 02-01-2023 05:16-0400 Heart rate 75 /min Dr. Adriane Mccoy [facility] 02-01-2023 05:16-0400 Respiratory rate 18 /min Dr. Adriane Mccoy [facility] 02-01-2023 05:16-0400 Systolic blood pressure 117 mm[Hg] Dr. Adriane Espitia [facility] 01-31-2023 16:00-0400 Body temperature 98.1 [degF] Dr. Adriane Mccoy [facility] 01-31-2023 16:00-0400 Diastolic blood pressure 71 mm[Hg] Dr. Adriane Espitia [facility] 01-31-2023 16:00-0400 Heart rate 76 /[facility] 01-31-2023 16:00-0400 Respiratory rate 17 /[facility] 01-31-2023 16:00-0400 Systolic blood pressure 109 mm[Hg] Dr. Adriane Espitia [facility] 01-31-2023 08:45-0400 PAIN LEVEL 0 {score} Dr. Adriane Mccoy [facility] 01-30-2023 08:08-0400 PAIN LEVEL 0 {score} [facility] 01-30-2023 01:17-0400 Body temperature 99 [degF] Dr. Adriane Mccoy [facility] 01-30-2023 01:17-0400 Diastolic blood pressure 76 mm[Hg] Dr. Adriane Espitia [facility] 01-30-2023 01:17-0400 Heart rate 86 /min Dr. Adriane Mccoy [facility] 01-30-2023 01:17-0400 Respiratory rate 17 /min Dr. Adriane Mccoy [facility] 01-30-2023 01:17-0400 Systolic blood pressure 127 mm[Hg] Dr. Adriane Espitia [facility] 01-29-2023 18:43-0400 Body temperature 97.1 [degF] Dr. Adriane Mccoy [facility] 01-29-2023 18:43-0400 Diastolic blood pressure 74 mm[Hg] Dr. Adriane Espitia [facility] 01-29-2023 18:43-0400 Heart rate 84 /[facility] 01-29-2023 18:43-0400 Respiratory rate 17 /min Dr. Adriane Espitai [facility] 01-29-2023 18:43-0400 Systolic blood pressure 128 mm[Hg] Dr. Adriane Espitia [facility] 01-29-2023 13:51-0400 Body temperature 98.5 [degF] Dr. Adriane Mccoy [facility] 01-29-2023 13:51-0400 Diastolic blood pressure 76 mm[Hg] Dr. Adriane Espitia [facility] 01-29-2023 13:51-0400 Heart rate 74 /min Dr. Adriane Mccoy [facility] 08-03-2023 13:51-0400 Respiratory rate 17 /min Dr. Adriane Mccoy [facility] 01-29-2023 13:51-0400 Systolic blood pressure 130 mm[Hg] [facility] 01-29-2023 08:20-0400 PAIN LEVEL 0 {score} Dr. Adriane Mccoy [facility] 01-29-2023 05:12-0400 PAIN LEVEL 0 {score} Dr. Adriane Mccoy [facility] 01-29-2023 01:28-0400 Body temperature 98.1 [degF] Dr. Adriane Mccoy [facility] 01-29-2023 01:28-0400 Diastolic blood pressure 74 mm[Hg] Dr. Adriane Espitia [facility] 01-29-2023 01:28-0400 Heart rate 72 /[facility] 01-29-2023 01:28-0400 Respiratory rate 16 /[facility] 01-29-2023 01:28-0400 Systolic blood pressure 127 mm[Hg] Dr. Adriane Espitia [facility] 01-28-2023 19:25-0400 Body temperature 98.2 [degF] Dr. Adriane Mccoy [facility] 01-28-2023 19:25-0400 Diastolic blood pressure 75 mm[Hg] [facility] 01-28-2023 19:25-0400 Heart rate 75 /[facility] 01-28-2023 19:25-0400 Respiratory rate 17 /min Dr. Adriane Mccoy [facility] 01-28-2023 19:25-0400 Systolic blood pressure 121 mm[Hg] [facility] 01-28-2023 11:56-0400 Body temperature 97.4 [degF] Dr. Adriane Mccoy [facility] 01-28-2023 11:56-0400 Diastolic blood pressure 80 mm[Hg] Dr. Adriaen Espitia [facility] 01-28-2023 11:56-0400 Heart rate 88 /min Dr. Adriane Mccoy [facility] 01-28-2023 11:56-0400 Respiratory rate 21 /min Dr. Adriane Mccoy [facility] 01-28-2023 11:56-0400 Systolic blood pressure 124 mm[Hg] Dr. Adriane Espitia [facility] 01-28-2023 08:31-0400 PAIN LEVEL 0 {score} [facility] 01-28-2023 04:36-0400 PAIN LEVEL 0 {score} Dr. Adriane Mccoy [facility] 01-28-2023 03:39-0400 Body temperature 98.3 [degF] Dr. Adriane Mccoy [facility] 01-28-2023 03:39-0400 Diastolic blood pressure 70 mm[Hg] Dr. Adriane Espitia [facility] 01-28-2023 03:39-0400 Heart rate 81 /[facility] 01-28-2023 03:39-0400 Respiratory rate 16 /min Dr. Adriane Mccoy [facility] 01-28-2023 03:39-0400 Systolic blood pressure 120 mm[Hg] [facility] 01-27-2023 16:03-0400 Body temperature 98.5 [degF] Dr. Adriane Mccoy [facility] 01-27-2023 16:03-0400 Diastolic blood pressure 58 mm[Hg] [facility] 01-27-2023 16:03-0400 Heart rate 77 /min Dr. Adriane Mccoy [facility] 01-27-2023 16:03-0400 Respiratory rate 17 /min Dr. Adriane Mccoy [facility] 01-27-2023 16:03-0400 Systolic blood pressure 113 mm[Hg] Dr. Adriane Espitia [facility] 01-27-2023 12:20-0400 Body temperature 98.1 [degF] Dr. Adriane Mccoy [facility] 01-27-2023 12:20-0400 Diastolic blood pressure 71 mm[Hg] Dr. Adriane Lunamir [facility] 01-27-2023 12:20-0400 Heart rate 84 /min Dr. Adriane Mccoy [facility] 01-27-2023 12:20-0400 Respiratory rate 19 /min Dr. Adriane Mccoy [facility] 01-27-2023 12:20-0400 Systolic blood pressure 121 mm[Hg] Dr. Adriane Espitia [facility] 01-27-2023 11:45-0400 Body weight 64.[address] [facility] 01-27-2023 08:25-0400 PAIN LEVEL 0 {score} [facility] 01-27-2023 03:46-0400 Body temperature 98.4 [degF] [facility] 01-27-2023 03:46-0400 Diastolic blood pressure 74 mm[Hg] Dr. Adriane Espitia [facility] 01-27-2023 03:46-0400 Heart rate 76 /min Dr. Adriane Mccoy [facility] 01-27-2023 03:46-0400 Respiratory rate 16 /[facility] 01-27-2023 03:46-0400 Systolic blood pressure 115 mm[Hg] Dr. Adriane Espitia [facility] 01-26-2023 23:42-0400 PAIN LEVEL 0 {score} Dr. Adriane Mccoy [facility] 01-26-2023 15:51-0400 Body temperature 98.3 [degF] Dr. Adriane Mccoy [facility] 01-26-2023 15:51-0400 Diastolic blood pressure 73 mm[Hg] Dr. Adriane Espitia [facility] 01-26-2023 15:51-0400 Heart rate 80 /[facility] 01-26-2023 15:51-0400 Respiratory rate 19 /min Dr. Adriane Espitia [facility] 01-26-2023 15:51-0400 Systolic blood pressure 115 mm[Hg] [facility] 01-26-2023 08:18-0400 PAIN LEVEL 0 {score} Dr. Adriane Mccoy [facility] 01-25-2023 22:35-0400 Body weight 63.[address] Adriane Mccoy [facility] 01-25-2023 19:57-0400 Body weight 63.[address] Adriane Mccoy [facility] 01-25-2023 16:56-0400 Body temperature 97.6 [degF] Dr. Adriane Mccoy [facility] 01-25-2023 16:56-0400 Diastolic blood pressure 72 mm[Hg] [facility] 01-25-2023 16:56-0400 Heart rate 75 /min Dr. Adriane Mccoy [facility] 01-25-2023 16:56-0400 Oxygen saturation in Blood 95 % Dr. Adriane Espitia [facility] 01-25-2023 16:56-0400 Respiratory rate 18 /min Dr. Adriane Mccoy [facility] 01-25-2023 16:56-0400 Systolic blood pressure 130 mm[Hg] Dr. Adriane Espitia [facility] 01-25-2023 11:33-0400 Body temperature 97.1 [degF] Dr. Adriane Mccoy [facility] 01-25-2023 11:33-0400 Diastolic blood pressure 81 mm[Hg] [facility] 01-25-2023 11:33-0400 Heart rate 71 /min Dr. Adriane Mccoy [facility] 01-25-2023 11:33-0400 Respiratory rate 16 /min Dr. Adriane Mccoy [facility] 01-25-2023 11:33-0400 Systolic blood pressure 133 mm[Hg] Dr. Adriane Espitia [facility] 01-25-2023 08:43-0400 PAIN LEVEL 0 {score} Dr. Adriane Lunamir [facility] 01-24-2023 19:59-0400 Body weight 63.[address] Adriane Mccoy [facility] 01-24-2023 17:41-0400 Body temperature 97.1 [degF] Dr. Adriane Mccoy [facility] 01-24-2023 17:41-0400 Diastolic blood pressure 73 mm[Hg] Dr. Adriane Espitia [facility] 01-24-2023 17:41-0400 Heart rate 60 /[facility] 01-24-2023 17:41-0400 Oxygen saturation in Blood 97 % Dr. Adriane Espitia [facility] 01-24-2023 17:41-0400 Respiratory rate 20 /[facility] 01-24-2023 17:41-0400 Systolic blood pressure 141 mm[Hg] [facility] 01-24-2023 13:57-0400 Body weight 65.[address] Adriane Mccoy [facility] 01-24-2023 12:35-0400 Body temperature 98.6 [degF] Dr. Adriane Mccoy [facility] 01-24-2023 12:35-0400 Diastolic blood pressure 72 mm[Hg] [facility] 01-24-2023 12:35-0400 Heart rate 71 /min Dr. Adriane Mccoy [facility] 01-24-2023 12:35-0400 Respiratory rate 17 /[facility] 01-24-2023 12:35-0400 Systolic blood pressure 131 mm[Hg] [facility] 01-24-2023 08:31-0400 PAIN LEVEL 0 {score} Dr. Adriane Mccoy [facility] 01-24-2023 01:01-0400 Body temperature 97.5 [degF] [facility] 01-24-2023 01:01-0400 Diastolic blood pressure 73 mm[Hg] Dr. Adriane Espitia [facility] 01-24-2023 01:01-0400 Heart rate 61 /[facility] 01-24-2023 01:01-0400 Respiratory rate 16 /[facility] 01-24-2023 01:01-0400 Systolic blood pressure 119 mm[Hg] Dr. Adriane Espitia [facility] 01-23-2023 23:11-0400 PAIN LEVEL 0 {score} Dr. Adriane Mccoy [facility] 01-23-2023 19:27-0400 Body weight 64.[address] [facility] 01-23-2023 18:03-0400 PAIN LEVEL 0 {score} Dr. Adriane Mccoy [facility] 01-23-2023 17:38-0400 Oxygen saturation in Blood 96 % Dr. Adriane Espitia [facility] 01-23-2023 17:38-0400 PAIN LEVEL 0 {score} Dr. Adriane Mccoy [facility] 01-23-2023 16:19-0400 Body temperature 97.6 [degF] Dr. Adriane Mccoy [facility] 01-23-2023 16:19-0400 Diastolic blood pressure 73 mm[Hg] Dr. Adriane Espitia [facility] 01-23-2023 16:19-0400 Heart rate 70 /min Dr. Adriane Espitia [facility] 01-23-2023 16:19-0400 Respiratory rate 16 /min Dr. Adriane Espitia [facility] 01-23-2023 16:19-0400 Systolic blood pressure 119 mm[Hg] Dr. Adriane Espitia [facility] 01-01-2023 14:30-0400 Body height 168.91 cm David Caputo Other [employer] Other 01-01-2023 14:30-0400 Body mass index (BMI) [Ratio] 20.67 kg/m2 David Caputo Other [employer] Other 01-01-2023 14:30-0400 Body weight 58.97 kg David Caputo Other [employer] [facility] 01-01-2023 14:30-0400 Diastolic blood pressure 59 mm[Hg] David Caputo Other [employer] Other 01-01-2023 14:30-0400 Systolic blood pressure 87 mm[Hg] David Caputo Other [employer] Other 12-26-2022 16:02-0400 Body temperature 97.9 [degF] [employer] Work Phone: [facility] 12-26-2022 16:02-0400 Diastolic blood pressure 58 mm[Hg] Ma Sand Work Phone: [facility] 12-26-2022 16:02-0400 Heart rate 76 /min Ma Sand Work Phone: [facility] 12-26-2022 16:02-0400 Respiratory rate 16 /min [employer] [facility] [facility] 12-26-2022 16:02-0400 SaO2% (BldA) [Mass fraction] 100 % [employer] Work Phone: [facility] 12-26-2022 16:02-0400 Systolic blood pressure 89 mm[Hg] [employer] Work Phone: [facility] 12-04-2022 14:30-0400 Body height 168.91 cm David Caputo Other [employer] Other 12-04-2022 14:30-0400 Body mass index (BMI) [Ratio] 20.67 kg/m2 David Caputo Other [employer] Other 12-04-2022 14:30-0400 Body weight 58.97 kg David Caputo Other [employer] Other 12-04-2022 14:30-0400 Diastolic blood pressure 68 mm[Hg] David Caputo Other [employer] Other 12-04-2022 14:30-0400 SaO2% (BldA) [Mass fraction] 93 % David Caputo Other [employer] Other 12-04-2022 14:30-0400 Systolic blood pressure 109 mm[Hg] David Caputo Other [employer] Other 11-28-2022 15:14-0400 Body height 170.8 cm Zahra May MD Work Phone: [facility] 11-28-2022 15:14-0400 Body temperature 97.2 [degF] Zahra May MD Work Phone: [facility] 11-28-2022 15:14-0400 Diastolic blood pressure 63 mm[Hg] Zahra May MD Work Phone: [facility] 11-28-2022 15:14-0400 Heart rate 74 /min Zahra May MD Work Phone: [facility] 11-28-2022 15:14-0400 Respiratory rate 18 /min Zahra May MD Work Phone: [facility] 11-28-2022 15:14-0400 SaO2% (BldA) [Mass fraction] 98 % Zahra May MD Work Phone: [facility] 11-28-2022 15:14-0400 Systolic blood pressure 92 mm[Hg] Zahra May MD Work Phone: [facility] 10-31-2022 15:31-0400 Body height 170.8 cm Ma Sand Work Phone: [facility] 10-31-2022 15:31-0400 Body temperature 97.59 [degF] Ma Sand Work Phone: [facility] 10-31-2022 15:31-0400 Body weight 64.41 kg Ma Sand Work Phone: [facility] 10-31-2022 15:31-0400 Diastolic blood pressure 63 mm[Hg] Ma Sand Work Phone: [facility] 10-31-2022 15:31-0400 Heart rate 73 /min Ma Sand Work Phone: [facility] 10-31-2022 15:31-0400 Respiratory rate 16 /min Ma Sand Work Phone: [facility] 10-31-2022 15:31-0400 SaO2% (BldA) [Mass fraction] 98 % Ma Sand Work Phone: [facility] 10-31-2022 15:31-0400 Systolic blood pressure 115 mm[Hg] Ma Sand Work Phone: [facility] 09-05-2022 14:17-0500 Body temperature 97.5 [degF] Ma Sand Work Phone: [facility] 09-05-2022 14:17-0500 Diastolic blood pressure 67 mm[Hg] Ma Sand Work Phone: [facility] 09-05-2022 14:17-0500 Heart rate 65 /min Ma Sand Work Phone: [facility] 09-05-2022 14:17-0500 Respiratory rate 18 /min Ma Sand Work Phone: [facility] 09-05-2022 14:17-0500 SaO2% (BldA) [Mass fraction] 97 % Ma Sand Work Phone: [facility] 09-05-2022 14:17-0500 Systolic blood pressure 119 mm[Hg] Ma Sand Work Phone: [facility] 08-08-2022 14:39-0500 Body temperature 97.9 [degF] Zahra May MD Work Phone: [facility] 08-08-2022 14:39-0500 Body weight 64.41 kg Zahra May MD Work Phone: [facility] 08-08-2022 14:39-0500 Diastolic blood pressure 76 mm[Hg] Zahra May MD Work Phone: [facility] 08-08-2022 14:39-0500 Heart rate 88 /min Zahra May MD Work Phone: [facility] 08-08-2022 14:39-0500 Respiratory rate 40 /min Zahra May MD Work Phone: [facility] 08-08-2022 14:39-0500 SaO2% (BldA) [Mass fraction] 94 % Zahra May MD Work Phone: [facility] 08-08-2022 14:39-0500 Systolic blood pressure 111 mm[Hg] Zahra May MD Work Phone: [facility] 07-17-2022 15:45-0500 Body height 168.91 cm David Caputo Other [employer] Other 07-17-2022 15:45-0500 Body mass index (BMI) [Ratio] 22.57 kg/m2 David Caputo Other [employer] Other 07-17-2022 15:45-0500 Body weight 64.41 kg David Caputo Other [employer] Other 07-17-2022 15:45-0500 Diastolic blood pressure 58 mm[Hg] David Caputo Other [employer] Other 07-17-2022 15:45-0500 SaO2% (BldA) [Mass fraction] 99 % David Caputo Other [employer] Other 07-17-2022 15:45-0500 Systolic blood pressure 102 mm[Hg] David Caputo Other [employer] Other 07-03-2022 13:55-0500 Body height 170.8 cm Zahra May MD Work Phone: [facility] 07-03-2022 13:55-0500 Body temperature 97.39 [degF] Zahra May MD Work Phone: [facility] 07-03-2022 13:55-0500 Body weight 67.31 kg Zahra May MD Work Phone: [facility] 07-03-2022 13:55-0500 Diastolic blood pressure 82 mm[Hg] Zahra May MD Work Phone: [facility] 07-03-2022 13:55-0500 Heart rate 77 /min Zahra May MD Work Phone: [facility] 07-03-2022 13:55-0500 Respiratory rate 16 /min Zahra May MD Work Phone: [facility] 07-03-2022 13:55-0500 SaO2% (BldA) [Mass fraction] 100 % Zahra May MD Work Phone: [facility] 07-03-2022 13:55-0500 Systolic blood pressure 126 mm[Hg] Zahra May MD Work Phone: [facility] 06-06-2022 13:32-0500 Body height 170.8 cm Zahra May MD Work Phone: [facility] 06-06-2022 13:32-0500 Body temperature 97.11 [degF] Zahra May MD Work Phone: [facility] 06-06-2022 13:32-0500 Body weight 65.77 kg Zahra May MD Work Phone: [facility] 06-06-2022 13:32-0500 Diastolic blood pressure 60 mm[Hg] Zahra May MD Work Phone: [facility] 06-06-2022 13:32-0500 Heart rate 66 /min Zahra May MD Work Phone: [facility] 06-06-2022 13:32-0500 Respiratory rate 24 /min Zahra May MD Work Phone: [facility] 06-06-2022 13:32-0500 SaO2% (BldA) [Mass fraction] 100 % Zahra May MD Work Phone: [facility] 06-06-2022 13:32-0500 Systolic blood pressure 109 mm[Hg] Zahra May MD Work Phone: [facility] 05-08-2022 13:45-0500 Body height 170.8 cm Zahra May MD Work Phone: [facility] 05-08-2022 13:45-0500 Body temperature 97.81 [degF] Zahra May MD Work Phone: [facility] 05-08-2022 13:45-0500 Body weight 62.41 kg Zahra May MD Work Phone: [facility] 05-08-2022 13:45-0500 Diastolic blood pressure 58 mm[Hg] Zahra May MD Work Phone: [facility] 05-08-2022 13:45-0500 Heart rate 63 /min Zahra May MD Work Phone: [facility] 05-08-2022 13:45-0500 Respiratory rate 16 /min Zahra May MD Work Phone: [facility] 05-08-2022 13:45-0500 SaO2% (BldA) [Mass fraction] 97 % Zahra May MD Work Phone: [facility] 05-08-2022 13:45-0500 Systolic blood pressure 102 mm[Hg] Zahra May MD Work Phone: [facility] 04-10-2022 12:47-0400 Body height 170.8 cm Zahra May MD Work Phone: [facility] 04-10-2022 12:47-0400 Body temperature 97.7 [degF] Zahra May MD Work Phone: [facility] 04-10-2022 12:47-0400 Body weight 66.04 kg Zahra May MD Work Phone: [facility] 04-10-2022 12:47-0400 Diastolic blood pressure 70 mm[Hg] Zahra May MD Work Phone: [facility] 04-10-2022 12:47-0400 Heart rate 60 /min Zahra May MD Work Phone: [facility] 04-10-2022 12:47-0400 Respiratory rate 16 /min Zahra May MD Work Phone: [facility] 04-10-2022 12:47-0400 SaO2% (BldA) [Mass fraction] 99 % Zahra May MD Work Phone: [facility] 04-10-2022 12:47-0400 Systolic blood pressure 125 mm[Hg] Zahra May MD Work Phone: [facility] 03-13-2022 12:57-0400 Body height 170.8 cm Rola Gordon APRN.SPEECH TEACHER Work Phone: [facility] 03-13-2022 12:57-0400 Body temperature 97.11 [degF] Rola Gordon APRN.SPEECH TEACHER Work Phone: [facility] 03-13-2022 12:57-0400 Body weight 65.77 kg Rola Gordon APRN.SPEECH TEACHER Work Phone: [facility] 03-13-2022 12:57-0400 Diastolic blood pressure 68 mm[Hg] Rola Gordon APRN.SPEECH TEACHER Work Phone: [facility] 03-13-2022 12:57-0400 Heart rate 74 /min Rola Gordon APRN.SPEECH TEACHER Work Phone: [facility] 03-13-2022 12:57-0400 Respiratory rate 20 /min Rola Gordon APRN.SPEECH TEACHER Work Phone: [facility] 03-13-2022 12:57-0400 SaO2% (BldA) [Mass fraction] 100 % Rola Gordon CONCRETE POURER.SPEECH TEACHER Work Phone: [facility] 03-13-2022 12:57-0400 Systolic blood pressure 119 mm[Hg] Rola Gordon CONCRETE POURER.SPEECH TEACHER Work Phone: [facility] 02-13-2022 14:09-0400 Body height 170.8 cm Zahra May MD Work Phone: [facility] 02-13-2022 14:09-0400 Body temperature 97.81 [degF] Zahra May MD Work Phone: [facility] 02-13-2022 14:09-0400 Body weight 65.14 kg Zahra May MD Work Phone: [facility] 02-13-2022 14:09-0400 Diastolic blood pressure 74 mm[Hg] Zahra May MD Work Phone: [facility] 02-13-2022 14:09-0400 Heart rate 62 /min Zahra May MD Work Phone: [facility] 02-13-2022 14:09-0400 Respiratory rate 16 /min Zahra May MD Work Phone: [facility] 02-13-2022 14:09-0400 SaO2% (BldA) [Mass fraction] 95 % Zahra May MD Work Phone: [facility] 02-13-2022 14:09-0400 Systolic blood pressure 108 mm[Hg] Zahra May MD Work Phone: [facility] 02-04-2022 13:50-0400 63.6 1 David Caputo Work Phone: [facility] DO Work Phone: Comment on above: [facility] 01-16-2022 14:00-0400 Body height 172.72 cm Nate Margie Other [facility] Other 01-16-2022 14:00-0400 Body mass index (BMI) [Ratio] 21.28 kg/m2 Nate Margie Other [facility] Other 01-16-2022 14:00-0400 Body weight 63.5 kg Nate Margie Other [facility] Other 12-05-2021 14:57-0400 Body height 170.8 cm Zahra May MD Work Phone: [facility] 12-05-2021 14:57-0400 Body temperature 97.39 [degF] Zahra May MD Work Phone: [facility] 12-05-2021 14:57-0400 Body weight 73.48 kg Zahra May MD Work Phone: [facility] 12-05-2021 14:57-0400 Diastolic blood pressure 85 mm[Hg] Zahra May MD Work Phone: [facility] 12-05-2021 14:57-0400 Heart rate 80 /min Zahra May MD Work Phone: [facility] 12-05-2021 14:57-0400 Respiratory rate 16 /min Zahra May MD Work Phone: [facility] 12-05-2021 14:57-0400 SaO2% (BldA) [Mass fraction] 97 % Zahra May MD Work Phone: [facility] 12-05-2021 14:57-0400 Systolic blood pressure 123 mm[Hg] Zahra May MD Work Phone: [facility] Encounters Encounter Date Encounter Type Care Provider Facility Start: 07-15-2024 End: 07-15-2024 Nursing evaluation of patient and report Melani Hart Work Phone: Hematology/Oncology Comment on above: 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); Adenocarcinoma (HCC); Abnormal weight loss; Macrocytosis Start: 07-15-2024 End: 07-15-2024 ambulatory DAVID CAPUTO Facility:[facility] Start: 07-15-2024 End: 07-15-2024 Office outpatient visit 25 minutes Zahra May MD Work Phone: Hematology/Oncology Comment on above: Small bowel cancer ( HCC) (Primary Dx); Abnormal finding of diagnostic imaging; Leukopenia, unspecified type Start: 07-01-2024 End: 07-01-2024 [facility] ZAHRA MAY Facility:[facility] Start: 07-01-2024 End: 07-01-2024 Subsequent hospital visit by physician Arrival Time Radiology Work Phone: [facility]iology [facility] Comment on above: 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] Start: 06-16-2024 End: 06-16-2024 ambulatory ZAHRA MAY Facility:[facility] Start: 06-16-2024 End: 06-16-2024 Office outpatient visit 40 minutes Zahra May MD Work Phone: Hematology/Oncology Comment on above: 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); Adenocarcinoma (HCC); Iron deficiency anemia secondary to inadequate dietary iron intake; Gastrointestinal hemorrhage associated with duodenitis Start: 06-09-2024 End: 06-09-2024 ambulatory DAVID CAPUTO Facility:[facility] Start: 06-09-2024 End: 06-09-2024 Subsequent hospital visit by physician Arrival Time Radiology Work Phone: [facility]iology [facility] Comment on above: 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 Start: 06-01-2024 Emergency department patient visit JUSTIN ZAPATA [facility] Start: 05-30-2024 Evaluation and manag ement of inpatient FLORENTINO [facility] Start: 05-30-2024 Evaluation and manag ement of inpatient [facility] Start: 05-30-2024 Evaluation and manag ement of inpatient FLORENTINO [facility] Start: 05-29-2024 Evaluation and manag ement of inpatient [facility] Start: 05-27-2024 Emergency department patient visit [facility] Start: 05-27-2024 Emergency department patient visit [facility] Start: 05-27-2024 Emergency department patient visit [facility] Start: 05-27-2024 End: 05-31-2024 Evaluation and management of inpatient JUSTIN [facility] Start: 05-06-2024 End: 05-06-2024 ambulatory [facility] Work Phone: Start: 05-06-2024 End: 05-06-2024 Patient encounter procedure [facility] Work Phone: Start: 04-29-2024 Non-patient / Non-visit [facility] Work Phone: Start: 04-28-2024 End: 04-28-2024 ambulatory DAVID CAPUTO Facility:[facility] Start: 04-28-2024 End: 04-28-2024 Nursing evaluation of patient and report Ma Nurse Zelalem Hart Work Phone: Hematology/Oncology Comment on above: 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); Adenocarcinoma (HCC); Abnormal weight loss; Macrocytosis Start: 03-31-2024 End: 03-31-2024 [facility] Facility:[facility] Start: 03-31-2024 End: 04-05-2024 Nursing evaluation of patient and report Melani Hart Work Phone: Hematology/Oncology Comment on above: 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); Adenocarcinoma (HCC); Abnormal weight loss; Macrocytosis Refill Request Start: 03-10-2024 End: 03-10-2024 [facility] Facility:[facility] Start: 03-10-2024 End: 03-10-2024 Office outpatient visit [...] loss; Macrocytosis Start: 03-03-2024 Non-patient / Non-visit [facility] Work Phone: Start: 03-03-2024 End: 03-04-2024 [facility] Facility:[facility] Start: 03-03-2024 End: 03-03-2024 Subsequent hospital visit by physician Arrival Time Radiology Work Phone: Radiology [facility] Comment on above: Iron deficiency anem ia secondary to inadequate dietary iron intake [D50.8] Start: 01-29-2024 End: 02-01-2024 [facility] Facility:[facility] Start: 01-29-2024 End: 01-29-2024 Nursing evaluation of patient and report Melani Hart Work Phone: Hematology/Oncology Comment on above: 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); Adenocarcinoma (HCC); Abnormal weight loss; Macrocytosis Start: 01-08-2024 End: 01-08-2024 ambulatory ZAHRA ABLUCYJUNAR Facility:[facility] Start: 01-08-2024 End: 01-08-2024 Nursing evaluation of patient and report Melani Hart Work Phone: Hematology/Oncology Comment on above: 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); Adenocarcinoma (HCC); Abnormal weight loss; Macrocytosis Start: 12-24-2023 End: 12-24-2023 ambulatory [facility] Work Phone: Start: 12-24-2023 End: 12-24-2023 Patient encounter procedure [facility] Work Phone: Start: 12-03-2023 End: 12-03-2023 [...] deficiency type Start: 12-03-2023 Non-patient / Non-visit [facility] Work Phone: Start: 12-03-2023 End: 12-03-2023 ambulatory ZAHRA LUCYCRISTIAN Facility:[facility] Start: 12-03-2023 Telephone encounter Zahra foster MD Work Phone: [facility] Comment on above: Results Start: 11-27-2023 End: 11-27-2023 ambulatory [facility] Work Phone: Start: 11-27-2023 End: 11-27-2023 Patient encounter procedure [facility] Work Phone: Start: 11-16-2023 Refill Zahra ibrahim MD Work Phone: Hematology/Oncology Comment on above: Refill Request Start: 11-05-2023 End: 11-05-2023 ambulatory ZAHRA ABANKAR Facility:[facility] Start: 11-05-2023 End: 11-05-2023 Nursing evaluation of patient and report Melani Hart Work Phone: Hematology/Oncology Comment on above: 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); Adenocarcinoma (HCC); Abnormal weight loss; Macrocytosis Start: 10-29-2023 End: 10-29-2023 [facility] Ambulatory Start: 10-29-2023 End: 10-29-2023 Office outpatient visit 25 minutes [facility] Work Phone: [facility] Comment on above: Arteriosclerosis [...] Start: 10-08-2023 End: 10-08-2023 ambulatory ZAHRA ABHYANKAR Facility:[facility] Start: 10-08-2023 End: 10-08-2023 Nursing evaluation of patient and report Melani Hart Work Phone: Hematology/Oncology Comment on above: Macrocytosis (Primar y Dx); Abnormal weight loss; Adenocarcinoma (HCC); Cancer of ampulla of Vater (HCC) Start: 10-06-2023 Refill Zahra ibrahim MD Work Phone: Hematology/Oncology Comment on above: Refill Request Start: 10-06-2023 Non-patient / Non-visit [facility] Work Phone: Start: 09-24-2023 End: 09-24-2023 ambulatory ZAHRA ROGERCRISTIAN Facility:[facility] Start: 09-21-2023 Social Work Mackenzie AVILES Hematolo gy/Oncology Start: 09-18-2023 Refill Cassandra Hernandez RN Hemat ology/Oncology Comment on above: Refill Request Start: 09-11-2023 End: 09-11-2023 ambulatory DO Rick Zapata Work Phone: [facility] Work Phone: Start: 09-11-2023 End: 09-11-2023 Patient encounter procedure DO Rick Zapata Work Phone: [facility] Work Phone: Start: 09-10-2023 End: 09-10-2023 Nursing evaluation of patient and report Ma Nurse Zelalem Hart Work Phone: Hematology/Oncology Comment on above: Macrocytosis (Primar y Dx); Abnormal weight loss; Adenocarcinoma (HCC); Cancer of ampulla of Vater (HCC) Start: 09-10-2023 End: 09-10-2023 ambulatory ZAHRA LUCYCRISTIAN Facility:[facility] Start: 09-10-2023 End: 09-10-2023 Office outpatient visit 25 minutes Zahra May MD Work Phone: Hematology/Oncology Comment on above: Iron deficiency anem ia secondary to inadequate dietary iron intake (Primary Dx); Cancer of ampulla of Vater (HCC); Adenocarcinoma (HCC); Anemia due to vitamin B12 deficiency, unspecified B12 deficiency type; Severe protein-calorie malnutrition (HCC) Start: 09-10-2023 Telephone encounter [facility] Work Phone: [facility] Comment on above: Medication Authoriza tion Start: 09-08-2023 Refill Imelda [facility] Work Phone: [facility] Comment on above: Refill Request Start: 09-04-2023 Refill Imelda Singletary elsi [facility] Work Phone: [facility] Comment on above: Refill Request Start: 09-03-2023 End: 09-03-2023 ambulatory DAVID CAPUTO Facility:[facility] Start: 09-03-2023 Non-patient / Non-visit DO Jolene Zapata Work Phone: [facility] Work Phone: Start: 09-03-2023 End: 09-03-2023 Subsequent hospital visit by physician Arrival Time Radiology Work Phone: Radiology [facility] Comment on above: 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] Start: 09-02-2023 Telephone encounter Cassandra Longoria Hematology/Oncology Comment on above: Medication Problem Start: 08-31-2023 Non-patient / Non-visit DO Jolene Zapata Work Phone: [facility] Work Phone: Start: 08-31-2023 Refill Zahra ibrahim MD Work Phone: Hematology/Oncology Comment on above: Refill Request Start: 08-27-2023 End: 08-27-2023 Patient encounter procedure DO Rick Rivasmilly Work Phone: [facility] Work Phone: Start: 08-11-2023 Telephone encounter Estrellita [...] Start: 08-05-2023 End: 08-05-2023 ambulatory Rick Zapata Facility:[facility] Start: 08-05-2023 End: 08-05-2023 ambulatory DO Rick Zapata Work Phone: [facility] Work Phone: Start: 08-05-2023 End: 08-05-2023 Departed Referred DO Rick Zapata Work Phone: [facility] Start: 07-17-2023 Orders Only Rick Coy lis DO Work Phone: [facility] Comment on above: Iron deficiency anem ia, unspecified iron deficiency anemia type (Primary Dx); History of gastric cancer; Rectal bleeding Start: 07-14-2023 End: 07-14-2023 ambulatory David Caputo Other [employer] Other Start: 07-14-2023 Telephone encounter David Caputo [facility] Start: 06-30-2023 End: 06-30-2023 ambulatory David Caputo Other [employer] Other Start: 06-30-2023 Telephone encounter David Caputo [facility] Start: 06-04-2023 End: 06-04-2023 ambulatory David Caputo Other [employer] Other Start: 06-04-2023 Office outpatient vi sit 25 minutes David Caputo [facility] Start: 06-04-2023 End: 06-04-2023 Patient encounter procedure DO Rick Zapata Work Phone: [facility] Work Phone: Start: 05-22-2023 End: 05-22-2023 ambulatory David Caputo Other [employer] Other Start: 05-22-2023 Telephone encounter David Caputo [facility] Start: 05-19-2023 End: 05-19-2023 ambulatory David Caputo Other [employer] Other Start: 05-19-2023 Telephone encounter David Caputo [facility] Start: 05-06-2023 End: 05-06-2023 ambulatory David Caputo Other [employer] Other Start: 05-06-2023 Telephone encounter David Caputo [facility] Start: 04-14-2023 End: 04-14-2023 ambulatory David Caputo Other [employer] Other Start: 04-14-2023 Telephone encounter David Caputo [facility] Start: 04-09-2023 End: 04-09-2023 Nursing evaluation of patient and report Ma Nurse Zelalem Hart Work Phone: Hematology/Oncology Comment on above: Macrocytosis (Primar y Dx); Abnormal weight loss; Adenocarcinoma (HCC); Cancer of ampulla of Vater (HCC) Start: 04-07-2023 End: 04-07-2023 ambulatory David Caputo Other [employer] Other Start: 04-07-2023 Telephone encounter David Caputo [facility] Start: 03-31-2023 End: 03-31-2023 ambulatory David Caputo Other [employer] Other Start: 03-31-2023 Telephone encounter David Caputo [facility] Start: 03-30-2023 Refill Zahra ibrahim MD Work Phone: Hematology/Oncology Comment on above: Refill Request Start: 03-20-2023 End: 03-20-2023 ambulatory David Caputo Other [facility] Other Start: 03-20-2023 Telephone encounter David Caputo [facility] Start: 03-19-2023 End: 03-19-2023 ambulatory David Caputo Other [facility] Other Start: 03-19-2023 Telephone encounter David Caputo [facility] Start: 03-16-2023 End: 03-16-2023 ambulatory David Caputo Other [facility] Other Start: 03-16-2023 Telephone encounter David Caputo [facility] Start: 03-11-2023 Telephone encounter Zahra foster [...] 03-10-2023 End: 03-10-2023 ambulatory David Caputo Other [facility] Other Start: 03-10-2023 Telephone encounter David Caputo [facility] Start: 03-09-2023 End: 03-09-2023 ambulatory David Caputo Other [facility] Other Start: 03-09-2023 Telephone encounter David Caputo [facility] Start: 03-05-2023 End: 03-05-2023 ambulatory David Caputo Other [facility] Other Start: 03-05-2023 Office outpatient vi sit 15 minutes David Caputo [facility] Start: 03-05-2023 Telephone encounter Zahra foster [...] 02-19-2023 End: 02-19-2023 ambulatory David Caputo Other [employer] Other Start: 02-19-2023 Telephone encounter David Caputo [facility] Start: 02-17-2023 Telephone encounter Zahra foster MD Work Phone: Hematology/Oncology Comment on above: Lab Orders Start: 02-13-2023 End: 02-13-2023 ambulatory David Caputo Other [facility] Other Start: 02-13-2023 Telephone encounter David Caputo [facility] Start: 02-10-2023 End: 02-10-2023 ambulatory Adriane Espitia Facility:[facility] Start: 02-10-2023 End: 02-10-2023 Patient encounter procedure MD David Caputo Work Phone: [facility] Start: 01-27-2023 End: 01-27-2023 ambulatory David Caputo Facility:[facility] Start: 01-27-2023 End: 01-27-2023 ambulatory MD David Caputo Work Phone: [facility] Work Phone: Start: 01-27-2023 End: 01-27-2023 Patient encounter procedure MD David Caputo Work Phone: [facility] Start: 01-21-2023 Telephone encounter Susan kurtz RN Work Phone: Hematology/Oncology Comment on above: Hospital Admission Start: 01-14-2023 End: 01-14-2023 ambulatory David Caputo Other [facility] Other Start: 01-14-2023 Telephone encounter David Caputo [facility] Start: 01-13-2023 Telephone encounter Cassandra Longoria Hematology/Oncology Comment on above: Results; Appointment Start: 01-12-2023 End: 01-12-2023 ambulatory David Caputo Other [facility] Other Start: 01-12-2023 Telephone encounter David Caputo [facility] Start: 01-01-2023 End: 01-01-2023 ambulatory David Caputo Other [facility] Other Start: 01-01-2023 Office outpatient vi sit 15 minutes David Caputo [facility] Start: 12-26-2022 End: 12-26-2022 Nursing evaluation of patient and report Melani Hart Work Phone: Hematology/Oncology Comment on above: Macrocytosis (Primar y Dx); Abnormal weight loss; Adenocarcinoma (HCC); Cancer of ampulla of Vater (HCC) Start: 12-08-2022 End: 12-08-2022 ambulatory David Caputo Other [facility] Other Start: 12-08-2022 Telephone encounter David Caputo [facility] Start: 12-04-2022 End: 12-04-2022 ambulatory David Caputo Other [facility] Other Start: 12-04-2022 Office outpatient vi sit 15 minutes David Caputo [facility] Start: 11-28-2022 End: 11-28-2022 Nursing evaluation [...] 11-27-2022 End: 11-27-2022 ambulatory David Caputo Other [facility] Other Start: 11-27-2022 Telephone encounter David Caputo [facility] Start: 11-21-2022 End: 11-21-2022 ambulatory David Caputo Other [facility] Other Start: 11-21-2022 Telephone encounter David Caputo [facility] Start: 11-04-2022 End: 11-04-2022 ambulatory David Caputo Other [facility] Other Start: 11-04-2022 Telephone encounter David Caputo [facility] Start: 10-31-2022 End: 10-31-2022 Nursing evaluation of patient and report Melani Hart Work Phone: Hematology/Oncology Comment on above: Macrocytosis (Primar y Dx); Abnormal weight loss; Adenocarcinoma (HCC); Cancer of ampulla of Vater (HCC) Start: 10-28-2022 End: 10-28-2022 ambulatory Zahra May MD Work Phone: [employer] Other Comment on above: Refill Request Start: 10-28-2022 Telephone encounter David Caputo [facility] Start: 10-03-2022 End: 10-03-2022 Nursing evaluation of patient and report Melani Hart Work Phone: Hematology/Oncology Comment on above: Macrocytosis (Primar y Dx); Abnormal weight loss; Adenocarcinoma (HCC); Cancer of ampulla of Vater (HCC) Start: 09-29-2022 End: 09-29-2022 ambulatory David Caputo Other [facility] Other Start: 09-29-2022 Telephone encounter David Caputo [facility] Start: 09-17-2022 End: 09-17-2022 ambulatory David Caputo Other [facility] Other Start: 09-17-2022 Telephone encounter Davidyossi Caputo [facility] Start: 09-16-[address] David Caputo Facility: Start: 09-08-2022 End: 09-08-2022 ambulatory David Caputo Other [facility] Other Start: 09-08-2022 Telephone encounter David Harshal [facility] Start: 09-05-2022 End: 09-05-2022 Nursing evaluation of patient and report Melani Hart Work Phone: Hematology/Oncology Comment on above: Macrocytosis (Primar y Dx); Abnormal weight loss; Adenocarcinoma (HCC); Cancer of ampulla of Vater (HCC) Start: 08-19-2022 Refill Zahra ibrahim MD Work Phone: Hematology/Oncology Comment on above: Refill Request Start: 08-11-2022 End: 08-11-2022 ambulatory David Caputo Other [facility] Other Start: 08-11-2022 Telephone encounter David Harshal [facility] Start: 08-08-2022 End: 08-08-2022 Office outpatient [...] 07-24-2022 End: 07-24-2022 ambulatory David Caputo Other [facility] Other Start: 07-24-2022 Telephone encounter David Caputo [facility] Start: 07-17-2022 End: 07-17-2022 ambulatory David Caputo Other [facility] Other Start: 07-17-2022 Office outpatient vi sit 25 minutes David Caputo [facility] Start: 07-11-2022 End: 07-12-[address] [...] 06-13-2022 Rx Renewal David Caputo Work Phone: [facility] [address] DO Work Phone: Start: 06-06-2022 End: [...] encounter procedure Zahra May MD Work Phone: [facility] Start: 05-19-2022 Refill Rola Gordon APRN.SPEECH TEACHER Work Phone: Hematology/Oncology Comment on above: Refill Request Start: 05-13-2022 Adult health examination Rhea Caputo Other [facility] Other Start: 05-12-2022 End: 05-13-[address] [...] Lab Orders Start: 03-27-2022 Refill Imelda walker [facility] Work Phone: Hematology/Oncology Comment on [...] End: 03-13-2022 Patient encounter procedure Rola Gordon APRN.SPEECH TEACHER Work Phone: [facility] Start: 03-10-2022 Rx Renewal David Caputo Work Phone: [facility] 250 DO Work Phone: Start: 03-06-2022 Rx Renewal David E Harshal Work Phone: [facility] 250 DO Work Phone: Start: 02-28-2022 Social [...] 01-16-2022 End: 01-16-2022 ambulatory Nate Hanson Other [facility] Other Start: 01-16-2022 Office outpatient vi sit 25 minutes Nate Hanson [facility] G[facility] Start: 01-09-[address] [...] encounter procedure Zahra May MD Work Phone: [facility] Start: 12-03-2021 Chart abstracting Zahra zapata MD Work Phone: Hematology/Oncology Start: 11-26-2021 End: 11-27-[address] DAVID CAPUTO Facility:[facility] Start: 11-12-2021 End: 11-13-[address] DAVID CAPUTO Facility:[facility] Start: 10-10-2021 End: 10-11-[address] DAVID CAPUTO Facility:[facility] Start: 07-02-2021 Rx Renewal Irving Garcia n DO Work Phone: [facility] DO Work Phone: Start: 09-30-2017 End: 10-09-2017 Evaluation and management of inpatient MICHAEL CEDILLO) [facility] Start: 09-28-2017 Ambulatory MAU DUFFY Facility: [id number] Start: 09-24-2017 Ambulatory MICHAEL ECDILLO) [facility] Start: 08-14-2017 End: 09-01-2017 Evaluation and management of inpatient MICHAEL CEDILLO) [facility] Procedures Date Procedure Procedure Detail Performing [...] on above: Performed By: #### PSASC #### [facility] [address] [place] [address] Dr. Mel Barrientos Start: 01-26-2020 Total colonoscopy [...] Author Start: 07-01-2027 Diabetes Screening Diabetes Screening [facility] Start: 05-30-2027 Diabetes Screening Diabetes Screening [facility] Start: 03-03-2027 Diabetes Screening Diabetes Screening [facility] Start: 12-02-2026 Diabetes Screening Diabetes Screening [facility] Start: 10-10-2026 PROSTATE CANCER SCREENING DISCUSSION PROSTATE CANCER SCREENING DISCUSSION [facility] Start: 10-10-2026 Prostate specific antigen measurement Prostate Cancer Screening Discussion [facility] Start: 09-02-2026 Diabetes Screening Diabetes Screening [facility] Start: 03-11-2026 Diabetes Screening Diabetes Screening [facility] Start: 02-19-2026 DIABETES SCREEN DIABETES SCREEN [facility] Start: 11-28-2025 DIABETES SCREEN DIABETES SCREEN [facility] Start: 10-03-2025 DIABETES SCREEN DIABETES SCREEN [facility] Start: 08-08-2025 DIABETES SCREEN DIABETES SCREEN [facility] Start: 07-03-2025 DIABETES SCREEN DIABETES SCREEN [facility] Start: 06-06-2025 DIABETES SCREEN DIABETES SCREEN [facility] Start: 05-31-2025 Screening for malignant neoplasm of colon [facility] Start: 05-08-2025 DIABETES SCREEN DIABETES SCREEN [facility] Start: 04-03-2025 DIABETES SCREEN DIABETES SCREEN [facility] Start: 03-06-2025 DIABETES SCREEN DIABETES SCREEN [facility] Start: 02-06-2025 DIABETES SCREEN DIABETES SCREEN [facility] Start: 11-10-2024 End: 11-10-2024 Patient encounter procedure 11/10/2024 11:30 AM EDT Office Visit [facility] [address] [place] [address] Irving Abreu DO [address] [place] [address] [facility] Start: 08-12-2024 End: 08-12-2024 Nursing evaluation of patient and report 08/12/2024 3:00 PM EST Nurse Visit Hematology/Oncology [address] [facility] [place] [address] Melani Hart Nurse Zelalem [address] [facility] [place] [address] 4 week follow up with lab and B 12 inj Hematology/Oncology Comment on above: 4 week follow up with lab and B 12 inj Start: 08-12-2024 End: 08-12-2024 Follow-up encounter 08/12/2024 2:30 PM EST Visit (SP) Office Hematology/Oncology [address] [facility] [place] [address] Palak Kitchen APRN.SPEECH TEACHER [address] [place] [address] 4 week follow up with lab and B 12 inj Hematology/Oncology Comment on above: 4 week follow up with lab and B 12 inj Start: 08-12-2024 End: 08-12-2024 Patient encounter procedure 08/12/2024 2:15 PM EST Office Visit [facility] [address] [place] [address] 4 week follow up with lab and B [address] [facility] Comment on above: 4 week follow up with lab and B 12 inj Start: 07-15-2024 End: 07-15-2024 Nursing evaluation of patient and report 07/15/2024 2:15 PM EST Nurse Visit Hematology/Oncology [address] [facility] [place] [address] Melani Hart Nurse Zelalem [address] [facility] [place] [address] B 12 Hematology/Oncology Comment on above: B 12 Start: 07-15-2024 End: 07-15-2024 Follow-up encounter 07/15/2024 1:40 PM EST Visit (SP) Office Hematology/Oncology [address] [facility] [place] [address] Zahra May MD [address] [place] [address] 1 week follow up after pet scan Hematology/Oncology Comment on above: 1 week follow up after pet scan Start: 07-01-2024 End: 07-01-2024 Patient encounter procedure 07/01/2024 1:30 PM EST Appointment Radiology Pet CT [address] [facility] [place] [address] Comment on above: Pet scan Start: 06-29-2024 Advance Directive Discussion Advance Directive Discussion [facility] Start: 06-16-2024 End: 06-16-2024 Follow-up encounter Hematology/Oncology Comment on above: follow up after ct and lab Start: 06-16-2024 End: 06-16-2025 CBC W Auto Differential panel - Blood COMPLETE BLOOD COUNT AND DIFFERENTIAL Lab Routine 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) Iron deficiency anemia secondary to inadequate dietary iron intake Gastrointestinal hemorrhage associated with duodenitis Expected: 06/16/2024, Expires: 06/16/2025 [facility] Comment on above: Expected: 06/16/2024, Expires: Start: 06-16-2024 End: 06-16-2025 Cobalamin (Vitamin B12) [Mass/volume] in Serum or Plasma VITAMIN B12 Lab Routine 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) Iron deficiency anemia secondary to inadequate dietary iron intake Gastrointestinal hemorrhage associated with duodenitis Expected: 06/16/2024, Expires: 06/16/2025 [facility] Comment on above: Expected: 06/16/2024, Expires: Start: 06-16-2024 End: 06-16-2025 Comprehensive metabolic 2000 panel - Serum or Plasma COMPREHENSIVE METABOLIC PANEL Lab Routine 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) Iron deficiency anemia secondary to inadequate dietary iron intake Gastrointestinal hemorrhage associated with duodenitis Expected: 06/16/2024, Expires: 06/16/2025 [facility] Comment on above: Expected: 06/16/2024, Expires: Start: 06-16-2024 End: 06-16-2025 Ferritin [Mass/volume] in Serum or Plasma FERRITIN Lab Routine 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) Iron deficiency anemia secondary to inadequate dietary iron intake Gastrointestinal hemorrhage associated with duodenitis Expected: 06/16/2024, Expires: 06/16/2025 [facility] Comment on above: Expected: 06/16/2024, Expires: Start: 06-16-2024 End: 06-16-2025 Folate [Mass/volume] in Serum or Plasma FOLATE, SERUM Lab Routine 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) Iron deficiency anemia secondary to inadequate dietary iron intake Gastrointestinal hemorrhage associated with duodenitis Expected: 06/16/2024, Expires: 06/16/2025 [facility] Comment on above: Expected: 06/16/2024, Expires: Start: 06-16-2024 End: 06-16-2025 Iron and Iron binding capacity panel - Serum or Plasma IRON AND TIBC Lab Routine 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) Iron deficiency anemia secondary to inadequate dietary iron intake Gastrointestinal hemorrhage associated with duodenitis Expected: 06/16/2024, Expires: 06/16/2025 [facility] Comment on above: Expected: 06/16/2024, Expires: Start: 06-09-2024 End: 03-10-2025 CBC W Auto Differential panel - Blood COMPLETE BLOOD COUNT AND DIFFERENTIAL Lab Routine Cancer of ampulla of Vater (HCC) Iron deficiency anemia secondary to inadequate dietary iron intake Anemia due to vitamin B12 deficiency, unspecified B12 deficiency type Expected: 06/09/2024 (Approximate), Expires: 03/10/2025 [facility] Comment on above: Expected: 06/09/2024 (Approximate), Expi res: 03/10/2025 Start: 06-09-2024 End: 03-10-2025 Cobalamin (Vitamin B12) [Mass/volume] in Serum or Plasma VITAMIN B12 Lab Routine Cancer of ampulla of Vater (HCC) Iron deficiency anemia secondary to inadequate dietary iron intake Anemia due to vitamin B12 deficiency, unspecified B12 deficiency type Expected: 06/09/2024 (Approximate), Expires: 03/10/2025 [facility] Comment on above: Expected: 06/09/2024 (Approximate), Expi res: 03/10/2025 Start: 06-09-2024 End: 03-10-2025 Comprehensive metabolic 2000 panel - Serum or Plasma COMPREHENSIVE METABOLIC PANEL Lab Routine Cancer of ampulla of Vater (HCC) Iron deficiency anemia secondary to inadequate dietary iron intake Anemia due to vitamin B12 deficiency, unspecified B12 deficiency type Expected: 06/09/2024 (Approximate), Expires: 03/10/2025 [facility] Comment on above: Expected: 06/09/2024 (Approximate), Expi res: 03/10/2025 Start: 06-09-2024 End: 04-09-2025 CT Abdomen and Pelvis W contrast IV [facility] Work Phone: Comment on above: Expected: 06/09/2024 (Approximate), Expi res: 04/09/2025 Start: 06-09-2024 End: 04-09-2025 CT Chest W contrast IV [facility] Comment on above: Expected: 06/09/2024 (Approximate), Expi res: 04/09/2025 Start: 06-09-2024 End: 03-10-2025 Ferritin [Mass/volume] in Serum or Plasma FERRITIN Lab Routine Cancer of ampulla of Vater (HCC) Iron deficiency anemia secondary to inadequate dietary iron intake Anemia due to vitamin B12 deficiency, unspecified B12 deficiency type Expected: 06/09/2024 (Approximate), Expires: 03/10/2025 [facility] Comment on above: Expected: 06/09/2024 (Approximate), Expi res: 03/10/2025 Start: 06-09-2024 End: 03-10-2025 Folate [Mass/volume] in Serum or Plasma FOLATE, SERUM Lab Routine Cancer of ampulla of Vater (HCC) Iron deficiency anemia secondary to inadequate dietary iron intake Anemia due to vitamin B12 deficiency, unspecified B12 deficiency type Expected: 06/09/2024 (Approximate), Expires: 03/10/2025 [facility] Comment on above: Expected: 06/09/2024 (Approximate), Expi res: 03/10/2025 Start: 06-09-2024 End: 03-10-2025 Iron and Iron binding capacity panel - Serum or Plasma IRON AND TIBC Lab Routine Cancer of ampulla of Vater (HCC) Iron deficiency anemia secondary to inadequate dietary iron intake Anemia due to vitamin B12 deficiency, unspecified B12 deficiency type Expected: 06/09/2024 (Approximate), Expires: 03/10/2025 [facility] Comment on above: Expected: 06/09/2024 (Approximate), Expi res: 03/10/2025 Start: 06-09-2024 End: 06-09-2024 Patient encounter procedure Radiology Pet CT Comment on above: ct cap w ct cap w Please have Rocio see Pharmacy or call Pharmacy to let them know he is here Start: 05-25-2024 End: 05-25-2024 Nursing evaluation of patient and report 05/25/2024 2:45 PM EST Nurse Visit Hematology/Oncology [address] [place] [address] [place] [address] Melani Hart Nurse Zelalem [address] [place] [address] [place] [address] CAP with contrast lab and B 12 inj(sent Msg to Chris) Hematology/Oncology Comment on above: [address] CAP with contrast lab and B 1 2 inj(sent Msg to Chris) Start: 04-28-2024 End: 04-28-2024 Nursing evaluation of patient and report 04/28/2024 2:45 PM EDT Nurse Visit Hematology/Oncology [address] [place] [address] [place] [address] Melani Hart Nurse Zelalem [address] [place] [address] [place] [address] CAP with contrast lab and B 12 inj(sent Msg to Chris) Hematology/Oncology Comment on above: [address] CAP with contrast lab and B 1 2 inj(sent Msg to Chris) Start: 03-31-2024 End: 03-31-2024 Nursing evaluation of patient and report 03/31/2024 2:30 PM EDT Nurse Visit Hematology/Oncology [address] [place] [address] [place] [address] Melani Hart Nurse Zelalem [address] [place] [address] [place] [address] CAP with contrast lab and B 12 inj(sent Msg to Chris) Hematology/Oncology Comment on above: [address] CAP with contrast lab and B 1 2 inj(sent Msg to Chris) Start: 03-10-2024 End: 03-10-2024 Follow-up encounter 03/10/2024 2:30 PM EDT Visit (SP) Office Hematology/Oncology [address] [facility] [place] [address] Zahra May MD [address] [facility] [place] [address] and lab Hematology/Oncology Comment on above: follow up after ct and lab Start: 03-04-2024 End: 06-03-2024 Cancer Ag 19-9 [Units/volume] in Serum or Plasma CA 19-9 Lab Routine Iron deficiency anemia secondary to inadequate dietary iron intake Cancer of ampulla of Vater (HCC) Anemia due to vitamin B12 deficiency, unspecified B12 deficiency type Expected: 03/04/2024 (Approximate), Expires: 06/03/2024 [facility] Comment on above: Expected: 03/04/2024 (Approximate), Expi res: 06/03/2024 Start: 03-04-2024 End: 12-02-2024 CBC W Auto Differential panel - Blood COMPLETE BLOOD COUNT AND DIFFERENTIAL Lab Routine Iron deficiency anemia secondary to inadequate dietary iron intake Cancer of ampulla of Vater (HCC) Anemia due to vitamin B12 deficiency, unspecified B12 deficiency type Expected: 03/04/2024 (Approximate), Expires: 12/02/2024 [facility] Comment on above: Expected: 03/04/2024 (Approximate), Expi res: 12/02/2024 Start: 03-04-2024 End: 12-02-2024 Cobalamin (Vitamin B12) [Mass/volume] in Serum or Plasma VITAMIN B12 Lab Routine Iron deficiency anemia secondary to inadequate dietary iron intake Cancer of ampulla of Vater (HCC) Anemia due to vitamin B12 deficiency, unspecified B12 deficiency type Expected: 03/04/2024 (Approximate), Expires: 12/02/2024 [facility] Comment on above: Expected: 03/04/2024 (Approximate), Expi res: 12/02/2024 Start: 03-04-2024 End: 12-02-2024 Comprehensive metabolic 2000 panel - Serum or Plasma COMPREHENSIVE METABOLIC PANEL Lab Routine Iron deficiency anemia secondary to inadequate dietary iron intake Cancer of ampulla of Vater (HCC) Anemia due to vitamin B12 deficiency, unspecified B12 deficiency type Expected: 03/04/2024 (Approximate), Expires: 12/02/2024 [facility] Comment on above: Expected: 03/04/2024 (Approximate), Expi res: 12/02/2024 Start: 03-04-2024 End: 01-01-2025 CT Abdomen and Pelvis W contrast IV CT ABD/PEL W IVCON Radiology Routine Iron deficiency anemia secondary to inadequate dietary iron intake Cancer of ampulla of Vater (HCC) Anemia due to vitamin B12 deficiency, unspecified B12 deficiency type Expected: 03/04/2024 (Approximate), Expires: 01/01/2025 [facility] Work Phone: Comment on above: Expected: 03/04/2024 (Approximate), Expi res: 01/01/2025 Start: 03-04-2024 End: 01-01-2025 CT Chest W contrast IV CT CHEST W IVCON Radiology Routine Iron deficiency anemia secondary to inadequate dietary iron intake Cancer of ampulla of Vater (HCC) Anemia due to vitamin B12 deficiency, unspecified B12 deficiency type Expected: 03/04/2024 (Approximate), Expires: 01/01/2025 [facility] Comment on above: Expected: 03/04/2024 (Approximate), Expi res: 01/01/2025 Start: 03-04-2024 End: 12-02-2024 Ferritin [Mass/volume] in Serum or Plasma FERRITIN Lab Routine Iron deficiency anemia secondary to inadequate dietary iron intake Cancer of ampulla of Vater (HCC) Anemia due to vitamin B12 deficiency, unspecified B12 deficiency type Expected: 03/04/2024 (Approximate), Expires: 12/02/2024 [facility] Comment on above: Expected: 03/04/2024 (Approximate), Expi res: 12/02/2024 Start: 03-04-2024 End: 12-02-2024 Folate [Mass/volume] in Serum or Plasma FOLATE, SERUM Lab Routine Iron deficiency anemia secondary to inadequate dietary iron intake Cancer of ampulla of Vater (HCC) Anemia due to vitamin B12 deficiency, unspecified B12 deficiency type Expected: 03/04/2024 (Approximate), Expires: 12/02/2024 [facility] Comment on above: Expected: 03/04/2024 (Approximate), Expi res: 12/02/2024 Start: 03-04-2024 End: 12-02-2024 Iron and Iron binding capacity panel - Serum or Plasma IRON AND TIBC Lab Routine Iron deficiency anemia secondary to inadequate dietary iron intake Cancer of ampulla of Vater (HCC) Anemia due to vitamin B12 deficiency, unspecified B12 deficiency type Expected: 03/04/2024 (Approximate), Expires: 12/02/2024 [facility] Comment on above: Expected: 03/04/2024 (Approximate), Expi res: 12/02/2024 Start: 03-03-2024 End: 03-03-2024 Nursing evaluation of patient and report 03/03/2024 2:00 PM EDT Nurse Visit Hematology/Oncology [address] [place] [address] Melani Hart Nurse Zelalem [address] [place] [address] CAP with contrast lab and B 12 inj Hematology/Oncology Comment on above: [address] CAP with contrast lab and B 1 2 inj Start: 03-03-2024 End: 03-03-2024 Patient encounter procedure 03/03/2024 12:15 PM EDT Appointment Radiology Pet CT [address] [place] [address] CAP with contrast lab and B [address] Comment on above: [address] CAP with contrast lab and B 1 2 inj Start: 02-28-2024 Covid-19 Vaccine () Covid-19 Vaccine () [facility] Start: 02-28-2024 Covid-19 Vaccine () Covid-19 Vaccine () [facility] Start: 02-28-2024 Covid-19 Vaccine () Covid-19 Vaccine () [facility] Start: 02-28-2024 Influenza vaccination [facility] Start: 01-29-2024 End: 01-29-2024 Nursing evaluation of patient and report 01/29/2024 2:30 PM EDT Nurse Visit Hematology/Oncology [address] [facility] [facility] [place] [address] Melani Hart Nurse Zelalem [address] [place] [address] B 12 q 4 weeks Hematology/Oncology Comment on above: B 12 q 4 weeks Start: 01-01-2024 End: 01-01-2024 Nursing evaluation of patient and report 01/01/2024 2:30 PM EDT Nurse Visit Hematology/Oncology [address] [facility] [place] [address] Melani Hart Nurse Zelalem [address] [place] [address] B 12 q 4 weeks Hematology/Oncology Comment on above: B 12 q 4 weeks Start: 12-03-2023 End: 12-03-2023 Nursing evaluation of patient and report 12/03/2023 3:15 PM EDT Nurse Visit Hematology/Oncology [address] [place] [address] Melani Hart Nurse Zelalem [address] [place] [address] 3 month follow up with lab and B 12 inj Hematology/Oncology Comment on above: 3 month follow up with lab and B 12 inj Start: 12-03-2023 End: 12-03-2023 Follow-up encounter 12/03/2023 3:00 PM EDT Visit (SP) Office Hematology/Oncology [address] [place] [address] Zahra May MD [address] [place] [address] 3 month follow up with lab and B 12 inj Hematology/Oncology Comment on above: 3 month follow up with lab and B 12 inj Start: 12-03-2023 End: 12-03-2023 Patient encounter procedure 12/03/2023 2:45 PM EDT Office Visit [facility] [address] [place] [address] 3 month follow up with lab and B [address] [facility] Comment on above: 3 month follow up with lab and B 12 inj Start: 11-22-2023 COVID-19 Vaccine ( season) COVID-19 Vaccine ( season) [facility] Start: 09-17-2023 FUV, Provider: Irving Abreu, Status: Pen, Time: 10:50 AM FUV, Provider: Irving Abreu, Status: Pen, Time: 10:50 AM -[facility] [address] DO Work Phone: Start: 06-29-2023 Advance Directive Discussion Advance Directive Discussion [facility] Start: 06-29-2023 Behavioral Health Screening Behavioral Health Screening [facility] Start: 06-29-2023 End: 08-29-2023 Cancer Ag 19-9 [Units/volume] in Serum or Plasma CA 19-9 BLD Lab Routine Cancer of ampulla of Vater (HCC) Anemia due to vitamin B12 deficiency, unspecified B12 deficiency type Severe protein-calorie malnutrition (HCC) Expected: 06/29/2023 (Approximate), Expires: 08/29/2023 [facility] Work Phone: Comment on above: Expected: 06/29/2023 (Approximate), Expi res: 08/29/2023 Start: 06-29-2023 End: 03-16-2024 CBC W Auto Differential panel - Blood CBC + DIFF Lab Routine Cancer of ampulla of Vater (HCC) Anemia due to vitamin B12 deficiency, unspecified B12 deficiency type Severe protein-calorie malnutrition (HCC) Expected: 06/29/2023 (Approximate), Expires: 03/16/2024 [facility] Work Phone: Comment on above: Expected: 06/29/2023 (Approximate), Expi res: 03/16/2024 Start: 06-29-2023 End: 03-16-2024 Cobalamin (Vitamin B12) [Mass/volume] in Serum or Plasma VITAMIN B12 BLOOD Lab Routine Cancer of ampulla of Vater (HCC) Anemia due to vitamin B12 deficiency, unspecified B12 deficiency type Severe protein-calorie malnutrition (HCC) Expected: 06/29/2023 (Approximate), Expires: 03/16/2024 [facility] Work Phone: Comment on above: Expected: 06/29/2023 (Approximate), Expi res: 03/16/2024 Start: 06-29-2023 End: 03-16-2024 Comprehensive metabolic 2000 panel - Serum or Plasma COMP METABOLIC PANEL Lab Routine Cancer of ampulla of Vater (HCC) Anemia due to vitamin B12 deficiency, unspecified B12 deficiency type Severe protein-calorie malnutrition (HCC) Expected: 06/29/2023 (Approximate), Expires: 03/16/2024 [facility] Work Phone: Comment on above: Expected: 06/29/2023 (Approximate), Expi res: 03/16/2024 Start: 06-29-2023 End: 04-14-2024 Ct abdomen & pelvis w/contrast material CT ABD/PEL W IVCON Radiology Routine Cancer of ampulla of Vater (HCC) Anemia due to vitamin B12 deficiency, unspecified B12 deficiency type Severe protein-calorie malnutrition (HCC) Expected: 06/29/2023 (Approximate), Expires: 04/14/2024 [facility] Work Phone: Comment on above: Expected: 06/29/2023 (Approximate), Expi res: 04/14/2024 Start: 06-29-2023 End: 04-14-2024 CT CHEST W IVCON CT CHEST W IVCON Radiology Routine Cancer of ampulla of Vater (HCC) Anemia due to vitamin B12 deficiency, unspecified B12 deficiency type Severe protein-calorie malnutrition (HCC) Expected: 06/29/2023 (Approximate), Expires: 04/14/2024 [facility] Work Phone: Comment on above: Expected: 06/29/2023 (Approximate), Expi res: 04/14/2024 Start: 06-29-2023 Depression Assessment Depression Assessment [facility] Start: 06-29-2023 End: 03-16-2024 Ferritin [Mass/volume] in Serum or Plasma FERRITIN BLD Lab Routine Cancer of ampulla of Vater (HCC) Anemia due to vitamin B12 deficiency, unspecified B12 deficiency type Severe protein-calorie malnutrition (HCC) Expected: 06/29/2023 (Approximate), Expires: 03/16/2024 [facility] Work Phone: Comment on above: Expected: 06/29/2023 (Approximate), Expi res: 03/16/2024 Start: 06-29-2023 End: 03-16-2024 Folate [Mass/volume] in Serum or Plasma FOLATE SERUM Lab Routine Cancer of ampulla of Vater (HCC) Anemia due to vitamin B12 deficiency, unspecified B12 deficiency type Severe protein-calorie malnutrition (HCC) Expected: 06/29/2023 (Approximate), Expires: 03/16/2024 [facility] Work Phone: Comment on above: Expected: 06/29/2023 (Approximate), Expi res: 03/16/2024 Start: 06-29-2023 End: 03-16-2024 Iron and Iron binding capacity panel - Serum or Plasma IRON + TIBC Lab Routine Cancer of ampulla of Vater (HCC) Anemia due to vitamin B12 deficiency, unspecified B12 deficiency type Severe protein-calorie malnutrition (HCC) Expected: 06/29/2023 (Approximate), Expires: 03/16/2024 [facility] Work Phone: Comment on above: Expected: 06/29/2023 (Approximate), Expi res: 03/16/2024 Start: 03-11-2023 End: 05-11-2023 Cancer Ag 19-9 [Units/volume] in Serum or Plasma CA 19-9 BLD Lab Routine Cancer of ampulla of Vater (HCC) Expected: 03/11/2023 (Approximate), Expires: 05/11/2023 [facility] Work Phone: Comment on above: Expected: 03/11/2023 (Approximate), Expi res: 05/11/2023 Start: 03-11-2023 End: 03-05-2024 CBC W Auto Differential panel - Blood CBC + DIFF Lab Routine Cancer of ampulla of Vater (HCC) Expected: 03/11/2023 (Approximate), Expires: 03/05/2024 [facility] Work Phone: Comment on above: Expected: 03/11/2023 (Approximate), Expi res: 03/05/2024 Start: 03-11-2023 End: 03-05-2024 Cobalamin (Vitamin B12) [Mass/volume] in Serum or Plasma VITAMIN B12 BLOOD Lab Routine Cancer of ampulla of Vater (HCC) Expected: 03/11/2023 (Approximate), Expires: 03/05/2024 [facility] Work Phone: Comment on above: Expected: 03/11/2023 (Approximate), Expi res: 03/05/2024 Start: 03-11-2023 End: 03-05-2024 Comprehensive metabolic 2000 panel - Serum or Plasma COMP METABOLIC PANEL Lab Routine Cancer of ampulla of Vater (HCC) Expected: 03/11/2023 (Approximate), Expires: 03/05/2024 [facility] Work Phone: Comment on above: Expected: 03/11/2023 (Approximate), Expi res: 03/05/2024 Start: 03-11-2023 End: 03-05-2024 Ferritin [Mass/volume] in Serum or Plasma FERRITIN BLD Lab Routine Cancer of ampulla of Vater (HCC) Expected: 03/11/2023 (Approximate), Expires: 03/05/2024 [facility] Work Phone: Comment on above: Expected: 03/11/2023 (Approximate), Expi res: 03/05/2024 Start: 03-11-2023 End: 03-05-2024 Folate [Mass/volume] in Serum or Plasma FOLATE SERUM Lab Routine Cancer of ampulla of Vater (HCC) Expected: 03/11/2023 (Approximate), Expires: 03/05/2024 [facility] Work Phone: Comment on above: Expected: 03/11/2023 (Approximate), Expi res: 03/05/2024 Start: 03-11-2023 End: 03-05-2024 Iron and Iron binding capacity panel - Serum or Plasma IRON + TIBC Lab Routine Cancer of ampulla of Vater (HCC) Expected: 03/11/2023 (Approximate), Expires: 03/05/2024 [facility] Work Phone: Comment on above: Expected: 03/11/2023 (Approximate), Expi res: 03/05/2024 Start: 03-05-2023 End: 03-20-[address] attenuation skull base mid-thigh NM PET/CT SKULL-THIGH INITIAL Radiology Routine Cancer of ampulla of Vater (HCC) Expected: 03/05/2023 (Approximate), Expires: 03/20/2024 [facility] Work Phone: Comment on above: Expected: 03/05/2023 (Approximate), Expi res: 03/20/2024 Start: 02-27-2023 Covid-19 Vaccine () Covid-19 Vaccine () [facility] Start: 02-27-2023 Influenza vaccination [facility] Start: 02-19-2023 End: 02-18-2024 CBC W Auto Differential panel - Blood CBC + DIFF Lab Routine Anemia due to vitamin B12 deficiency, unspecified B12 deficiency type Expected: 02/19/2023 (Approximate), Expires: 02/18/2024 [facility] Work Phone: Comment on above: Expected: 02/19/2023 (Approximate), Expi res: 02/18/2024 Start: 02-19-2023 End: 02-18-2024 Cobalamin (Vitamin B12) [Mass/volume] in Serum or Plasma VITAMIN B12 BLOOD Lab Routine Anemia due to vitamin B12 deficiency, unspecified B12 deficiency type Expected: 02/19/2023 (Approximate), Expires: 02/18/2024 [facility] Work Phone: Comment on above: Expected: 02/19/2023 (Approximate), Expi res: 02/18/2024 Start: 02-19-2023 End: 02-18-2024 Comprehensive metabolic 2000 panel - Serum or Plasma COMP METABOLIC PANEL Lab Routine Anemia due to vitamin B12 deficiency, unspecified B12 deficiency type Expected: 02/19/2023 (Approximate), Expires: 02/18/2024 [facility] Work Phone: Comment on above: Expected: 02/19/2023 (Approximate), Expi res: 02/18/2024 Start: 02-19-2023 End: 02-18-2024 Ferritin [Mass/volume] in Serum or Plasma FERRITIN BLD Lab Routine Anemia due to vitamin B12 deficiency, unspecified B12 deficiency type Expected: 02/19/2023 (Approximate), Expires: 02/18/2024 [facility] Work Phone: Comment on above: Expected: 02/19/2023 (Approximate), Expi res: 02/18/2024 Start: 02-19-2023 End: 02-18-2024 Folate [Mass/volume] in Serum or Plasma FOLATE SERUM Lab Routine Anemia due to vitamin B12 deficiency, unspecified B12 deficiency type Expected: 02/19/2023 (Approximate), Expires: 02/18/2024 [facility] Work Phone: Comment on above: Expected: 02/19/2023 (Approximate), Expi res: 02/18/2024 Start: 02-19-2023 End: 02-18-2024 Iron and Iron binding capacity panel - Serum or Plasma IRON + TIBC Lab Routine Anemia due to vitamin B12 deficiency, unspecified B12 deficiency type Expected: 02/19/2023 (Approximate), Expires: 02/18/2024 [facility] Work Phone: Comment on above: Expected: 02/19/2023 (Approximate), Expi res: 02/18/2024 Start: 01-27-2023 Insulin C-peptide measurement [facility] Start: 01-07-2023 FUV, Provider: Irving Abreu, Status: Pen, Time: 10:20 AM FUV, Provider: Irving Abreu, Status: Pen, Time: 10:20 AM -[place] [id number] DO Work Phone: Start: 08-14-2022 Pneumococcal Vaccine: 65+ (3 - PPSV23 or PCV20) Pneumococcal Vaccine: 65+ (3 - PPSV23 or PCV20) [facility] Start: 08-14-2022 Pneumococcal Vaccine: 65+ (3 of 3 - PPSV23 or PCV20) Pneumococcal Vaccine: 65+ (3 of 3 - PPSV23 or PCV20) [facility] Start: 08-14-2022 PNEUMOCOCCAL: 65+ (#3) PNEUMOCOCCAL: 65+ (#3) [facility] Start: 08-14-2022 PNEUMOCOCCAL: 65+ (3 - PPSV23 if available, else PCV20) PNEUMOCOCCAL: 65+ (3 - PPSV23 if available, else PCV20) [facility] Start: 08-14-2022 PNEUMOCOCCAL: 65+ (3 - PPSV23 or PCV20) PNEUMOCOCCAL: 65+ (3 - PPSV23 or PCV20) [facility] Start: 07-04-2022 End: 09-03-2022 Cancer Ag 19-9 [Units/volume] in Serum or Plasma CA 19-9 BLD Lab Routine Cancer of ampulla of Vater (HCC) Expected: 07/04/2022 (Approximate), Expires: 09/03/2022 [facility] Work Phone: Comment on above: Expected: 07/04/2022 (Approximate), Expi res: 09/03/2022 Start: 07-04-2022 End: 06-06-2023 CBC W Auto Differential panel - Blood CBC + DIFF Lab Routine Anemia due to vitamin B12 deficiency, unspecified B12 deficiency type Expected: 07/04/2022 (Approximate), Expires: 06/06/2023 [facility] Work Phone: Comment on above: Expected: 07/04/2022 (Approximate), Expi res: 06/06/2023 Start: 07-04-2022 End: 06-06-2023 Cobalamin (Vitamin B12) [Mass/volume] in Serum or Plasma VITAMIN B12 BLOOD Lab Routine Anemia due to vitamin B12 deficiency, unspecified B12 deficiency type Expected: 07/04/2022 (Approximate), Expires: 06/06/2023 [facility] Work Phone: Comment on above: Expected: 07/04/2022 (Approximate), Expi res: 06/06/2023 Start: 07-04-2022 End: 06-06-2023 Comprehensive metabolic 2000 panel - Serum or Plasma COMP METABOLIC PANEL Lab Routine Anemia due to vitamin B12 deficiency, unspecified B12 deficiency type Expected: 07/04/2022 (Approximate), Expires: 06/06/2023 [facility] Work Phone: Comment on above: Expected: 07/04/2022 (Approximate), Expi res: 06/06/2023 Start: 07-04-2022 End: 07-06-2023 Ct abdomen & pelvis w/contrast material CT ABD/PEL W IVCON Radiology Routine Interstitial pulmonary disease (HCC) Cancer of ampulla of Vater (HCC) Anemia due to vitamin B12 deficiency, unspecified B12 deficiency type Expected: 07/04/2022 (Approximate), Expires: 07/06/2023 [facility] Work Phone: Comment on above: Expected: 07/04/2022 (Approximate), Expi res: 07/06/2023 Start: 07-04-2022 End: 07-06-2023 CT CHEST W IVCON CT CHEST W IVCON Radiology Routine Interstitial pulmonary disease (HCC) Cancer of ampulla of Vater (HCC) Anemia due to vitamin B12 deficiency, unspecified B12 deficiency type Expected: 07/04/2022 (Approximate), Expires: 07/06/2023 [facility] Work Phone: Comment on above: Expected: 07/04/2022 (Approximate), Expi res: 07/06/2023 Start: 07-04-2022 DIABETES SCREEN DIABETES SCREEN [facility] Start: 07-04-2022 End: 06-06-2023 Ferritin [Mass/volume] in Serum or Plasma FERRITIN BLD Lab Routine Anemia due to vitamin B12 deficiency, unspecified B12 deficiency type Expected: 07/04/2022 (Approximate), Expires: 06/06/2023 [facility] Work Phone: Comment on above: Expected: 07/04/2022 (Approximate), Expi res: 06/06/2023 Start: 07-04-2022 End: 06-06-2023 Folate [Mass/volume] in Serum or Plasma FOLATE SERUM Lab Routine Anemia due to vitamin B12 deficiency, unspecified B12 deficiency type Expected: 07/04/2022 (Approximate), Expires: 06/06/2023 [facility] Work Phone: Comment on above: Expected: 07/04/2022 (Approximate), Expi res: 06/06/2023 Start: 07-04-2022 End: 06-06-2023 Iron and Iron binding capacity panel - Serum or Plasma IRON + TIBC Lab Routine Anemia due to vitamin B12 deficiency, unspecified B12 deficiency type Expected: 07/04/2022 (Approximate), Expires: 06/06/2023 [facility] Work Phone: Comment on above: Expected: 07/04/2022 (Approximate), Expi res: 06/06/2023 Start: 06-29-2022 ADVANCE DIRECTIVE DISCUSSION ADVANCE DIRECTIVE DISCUSSION [facility] Start: 06-29-2022 DEPRESSION ASSESSMENT DEPRESSION ASSESSMENT [facility] Start: 2022 Abdominal aortic aneurysm screening Abdominal Aortic Aneurysm (AAA) Screening [facility] Start: 2022 ADVANCE DIRECTIVE DISCUSSION ADVANCE DIRECTIVE DISCUSSION [facility] Start: 2022 Fall Risk Screening Fall Risk Screening [facility] Start: 05-08-2022 End: 04-10-2023 CBC W Auto Differential panel - Blood CBC + DIFF Lab Routine Iron deficiency anemia, unspecified iron deficiency anemia type Anemia due to vitamin B12 deficiency, unspecified B12 deficiency type Expected: 05/08/2022 (Approximate), Expires: 04/10/2023 [facility] Work Phone: Comment on above: Expected: 05/08/2022 (Approximate), Expi res: 04/10/2023 Start: 05-08-2022 End: 04-10-2023 Cobalamin (Vitamin B12) [Mass/volume] in Serum or Plasma VITAMIN B12 BLOOD Lab Routine Iron deficiency anemia, unspecified iron deficiency anemia type Anemia due to vitamin B12 deficiency, unspecified B12 deficiency type Expected: 05/08/2022 (Approximate), Expires: 04/10/2023 [facility] Work Phone: Comment on above: Expected: 05/08/2022 (Approximate), Expi res: 04/10/2023 Start: 05-08-2022 End: 04-10-2023 Comprehensive metabolic 2000 panel - Serum or Plasma COMP METABOLIC PANEL Lab Routine Iron deficiency anemia, unspecified iron deficiency anemia type Anemia due to vitamin B12 deficiency, unspecified B12 deficiency type Expected: 05/08/2022 (Approximate), Expires: 04/10/2023 [facility] Work Phone: Comment on above: Expected: 05/08/2022 (Approximate), Expi res: 04/10/2023 Start: 05-08-2022 End: 04-10-2023 Ferritin [Mass/volume] in Serum or Plasma FERRITIN BLD Lab Routine Iron deficiency anemia, unspecified iron deficiency anemia type Anemia due to vitamin B12 deficiency, unspecified B12 deficiency type Expected: 05/08/2022 (Approximate), Expires: 04/10/2023 [facility] Work Phone: Comment on above: Expected: 05/08/2022 (Approximate), Expi res: 04/10/2023 Start: 05-08-2022 End: 04-10-2023 Folate [Mass/volume] in Serum or Plasma FOLATE SERUM Lab Routine Iron deficiency anemia, unspecified iron deficiency anemia type Anemia due to vitamin B12 deficiency, unspecified B12 deficiency type Expected: 05/08/2022 (Approximate), Expires: 04/10/2023 [facility] Work Phone: Comment on above: Expected: 05/08/2022 (Approximate), Expi res: 04/10/2023 Start: 05-08-2022 End: 04-10-2023 Iron and Iron binding capacity panel - Serum or Plasma IRON + TIBC Lab Routine Iron deficiency anemia, unspecified iron deficiency anemia type Anemia due to vitamin B12 deficiency, unspecified B12 deficiency type Expected: 05/08/2022 (Approximate), Expires: 04/10/2023 [facility] Work Phone: Comment on above: Expected: 05/08/2022 (Approximate), Expi res: 04/10/2023 Start: 04-10-2022 End: 04-10-2023 CBC W Auto Differential panel - Blood CBC + DIFF Lab Routine Iron deficiency anemia, unspecified iron deficiency anemia type Anemia due to vitamin B12 deficiency, unspecified B12 deficiency type Macrocytosis Expected: 04/10/2022, Expires: 04/10/2023 [facility] Work Phone: Comment on above: Expected: 04/10/2022, Expires: 3 Start: 04-10-2022 End: 04-10-2023 Cobalamin (Vitamin B12) [Mass/volume] in Serum or Plasma VITAMIN B12 BLOOD Lab Routine Iron deficiency anemia, unspecified iron deficiency anemia type Anemia due to vitamin B12 deficiency, unspecified B12 deficiency type Macrocytosis Expected: 04/10/2022, Expires: 04/10/2023 [facility] Work Phone: Comment on above: Expected: 04/10/2022, Expires: Start: 04-10-2022 End: 04-10-2023 Comprehensive metabolic 2000 panel - Serum or Plasma COMP METABOLIC PANEL Lab Routine Iron deficiency anemia, unspecified iron deficiency anemia type Anemia due to vitamin B12 deficiency, unspecified B12 deficiency type Macrocytosis Expected: 04/10/2022, Expires: 04/10/2023 [facility] Work Phone: Comment on above: Expected: 04/10/2022, Expires: 3 Start: 04-10-2022 End: 04-10-2023 Ferritin [Mass/volume] in Serum or Plasma FERRITIN BLD Lab Routine Iron deficiency anemia, unspecified iron deficiency anemia type Anemia due to vitamin B12 deficiency, unspecified B12 deficiency type Macrocytosis Expected: 04/10/2022, Expires: 04/10/2023 [facility] Work Phone: Comment on above: Expected: 04/10/2022, Expires: 3 Start: 04-10-2022 End: 04-10-2023 Folate [Mass/volume] in Serum or Plasma FOLATE SERUM Lab Routine Iron deficiency anemia, unspecified iron deficiency anemia type Anemia due to vitamin B12 deficiency, unspecified B12 deficiency type Macrocytosis Expected: 04/10/2022, Expires: 04/10/2023 [facility] Work Phone: Comment on above: Expected: 04/10/2022, Expires: 3 Start: 04-10-2022 End: 06-10-2022 Haptoglobin [Mass/volume] in Serum or Plasma HAPTOGLOBIN BLD Lab Routine Iron deficiency anemia, unspecified iron deficiency anemia type Anemia due to vitamin B12 deficiency, unspecified B12 deficiency type Macrocytosis Expected: 04/10/2022, Expires: 06/10/2022 [facility] Work Phone: Comment on above: Expected: 04/10/2022, Expires: 2 Start: 04-10-2022 End: 04-10-2023 Iron and Iron binding capacity panel - Serum or Plasma IRON + TIBC Lab Routine Iron deficiency anemia, unspecified iron deficiency anemia type Anemia due to vitamin B12 deficiency, unspecified B12 deficiency type Macrocytosis Expected: 04/10/2022, Expires: 04/10/2023 [facility] Work Phone: Comment on above: Expected: 04/10/2022, Expires: 3 Start: 04-10-2022 End: 06-10-2022 Lactate dehydrogenase [Enzymatic activity/volume] in Serum or Plasma LD LACTATE DEHYDRO Lab Routine Iron deficiency anemia, unspecified iron deficiency anemia type Anemia due to vitamin B12 deficiency, unspecified B12 deficiency type Macrocytosis Expected: 04/10/2022, Expires: 06/10/2022 [facility] Work Phone: Comment on above: Expected: 04/10/2022, Expires: 2 Start: 04-10-2022 End: 06-10-2022 RETIC COUNT RETIC COUNT Lab Routine Iron deficiency anemia, unspecified iron deficiency anemia type Anemia due to vitamin B12 deficiency, unspecified B12 deficiency type Macrocytosis Expected: 04/10/2022, Expires: 06/10/2022 [facility] Work Phone: Comment on above: Expected: 04/10/2022, Expires: 2 Start: 02-27-2022 Influenza vaccination [facility] Start: 02-04-2022 End: 04-06-2022 Cancer Ag 19-9 [Units/volume] in Serum or Plasma CA 19-9 BLD Lab Routine Iron deficiency anemia, unspecified iron deficiency anemia type 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) Expected: 02/04/2022 (Approximate), Expires: 04/06/2022 [facility] [facility] Work Phone: Comment on above: Expected: 02/04/2022 (Approximate), Expi res: 04/06/2022 Start: 02-04-2022 End: 12-05-2022 Carcinoembryonic Ag [Mass/volume] in Serum or Plasma CEA BLD Lab Routine Iron deficiency anemia, unspecified iron deficiency anemia type 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) Malignant neoplasm of body of pancreas (HCC) Expected: 02/04/2022 (Approximate), Expires: 12/05/2022 [facility] Work Phone: Comment on above: Expected: 02/04/2022 (Approximate), Expi res: 12/05/2022 Start: 02-04-2022 End: 12-05-2022 CBC W Auto Differential panel - Blood CBC + DIFF Lab Routine Iron deficiency anemia, unspecified iron deficiency anemia type 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) Expected: 02/04/2022 (Approximate), Expires: 12/05/2022 [facility] Work Phone: Comment on above: Expected: 02/04/2022 (Approximate), Expi res: 12/05/2022 Start: 02-04-2022 End: 12-05-2022 Comprehensive metabolic 2000 panel - Serum or Plasma COMP METABOLIC PANEL Lab Routine Iron deficiency anemia, unspecified iron deficiency anemia type 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) Expected: 02/04/2022 (Approximate), Expires: 12/05/2022 [facility] Work Phone: Comment on above: Expected: 02/04/2022 (Approximate), Expi res: 12/05/2022 Start: 02-04-2022 End: 01-04-2023 Ct abdomen & pelvis w/contrast material CT ABD/PEL W IVCON Radiology Routine Iron deficiency anemia, unspecified iron deficiency anemia type 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) Expected: 02/04/2022 (Approximate), Expires: 01/04/2023 [facility] Work Phone: Comment on above: Expected: 02/04/2022 (Approximate), Expi res: 01/04/2023 Start: 02-04-2022 End: 01-04-2023 Ct thorax w/contrast material CT CHEST W IVCON Radiology Routine Iron deficiency anemia, unspecified iron deficiency anemia type 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) Expected: 02/04/2022 (Approximate), Expires: 01/04/2023 [facility] Work Phone: Comment on above: Expected: 02/04/2022 (Approximate), Expi res: 01/04/2023 Start: 01-09-2022 FUV, Provider: Irving Abreu, Status: Pen, Time: 11:15 AM FUV, Provider: Irving Abreu, Status: Pen, Time: 11:15 AM [place] [id number] DO Work Phone: Start: 11-14-2021 COVID-19 VACCINE (4 - Booster for Pfizer series) COVID-19 VACCINE (4 - Booster for Pfizer series) [facility] Start: 09-11-2021 COVID-19 VACCINE (4 - Booster for Pfizer series) COVID-19 VACCINE (4 - Booster for Pfizer series) [facility] Start: 09-11-2021 COVID-19 VACCINE (4 - Pfizer series) COVID-19 VACCINE (4 - Pfizer series) [facility] Start: 06-29-2021 DEPRESSION ASSESSMENT DEPRESSION ASSESSMENT [facility] Start: 12-11-2020 Adult depression screening assessment DEPRESSION SCREENING [facility] Start: 08-14-2018 PNEUMOCOCCAL (2 - PCV) PNEUMOCOCCAL (2 - PCV) [facility] Start: 2017 RSV patients and/or patients aged 60+ years (1 - 1-dose 60+ series) RSV patients and/or patients aged 60+ years (1 - 1-dose 60+ series) [facility] Start: 2017 RSV Vaccine (1 - 1-dose 60+ series) RSV Vaccine (1 - 1-dose 60+ series) [facility] Start: 2017 RSV Vaccine (1 - Risk 60-74 years 1-dose series) RSV Vaccine (1 - Risk 60-74 years 1-dose series) [facility] Start: 2012 PROSTATE CANCER SCREENING DISCUSSION PROSTATE CANCER SCREENING DISCUSSION [facility] Start: 2007 SHINGRIX VACCINE (1 of 2) SHINGRIX VACCINE (1 of 2) [facility] Start: 2007 Zoster Vaccines (1 of 2) Zoster Vaccines (1 of 2) [facility] Start: 2002 COLOGUARD (FIT-DNA) COLOGUARD (FIT-DNA) [facility] Start: 2002 Colonoscopy COLONOSCOPY [facility] Start: 2002 COLORECTAL CANCER SCREENING COLORECTAL CANCER SCREENING [facility] Start: [address] COLONOGRAPHY [facility] Start: 2002 FECAL OCCULT BLOOD FECAL OCCULT BLOOD [facility] Start: 2002 Screening for malignant neoplasm of colon [facility] Start: 2002 SIGMOIDOSCOPY SIGMOIDOSCOPY [facility] Start: 1992 Lipid 1996 panel - Serum or Plasma Lipid Screening [facility] Start: 1992 Lipid panel Lipid Screening [facility] Start: 1992 LIPID SCREEN LIPID SCREEN [facility] Start: 1979 DTaP/Tdap/Td Vaccines (1 - Tdap) DTaP/Tdap/Td Vaccines (1 - Tdap) [facility] Start: 1976 Administration of varicella zoster vaccine Zoster (Shingles) Vaccine (1 of 2) [facility] Start: 1976 DTaP,Tdap and Td Vaccines (1 - Tdap) DTaP,Tdap and Td Vaccines (1 - Tdap) [facility] Start: 1976 SHINGRIX VACCINE (1 of 2) SHINGRIX VACCINE (1 of 2) [facility] Start: 1976 Urine microalbumin profile [facility] Start: 1976 Urine screening for protein Diabetes: Urine Protein Screening [facility] Start: 1975 Adult BMI Screening Adult BMI Screening [facility] Start: 1975 Anxiety Screening Anxiety Screening [facility] Start: 1975 Depression Screening Depression Screening [facility] Start: 1975 Hepatitis C screening Hepatitis C Screening [facility] Start: 1975 HIV SCREENING HIV SCREENING [facility] Start: 1969 Depression Screening Depression Screening [facility] Start: 1969 Tobacco Screening Tobacco Screening [facility] Start: 1967 Diabetic foot examination Diabetes: Foot Exam [facility] Start: 1967 Glaucoma screening Diabetes: Retinopathy Screening [facility] Start: 1962 COVID-19 VACCINE (#1) COVID-19 VACCINE (#1) [facility] Start: 1957 ABDOMINAL AORTIC ANEURYSM SCREENING ABDOMINAL AORTIC ANEURYSM SCREENING [facility] Start: 1957 Abdominal aortic aneurysm screening Abdominal Aortic Aneurysm Screening [facility] Start: 1957 Creatinine measurement Creatinine Level [facility] Start: 1957 Echocardiography Echocardiogram [facility] Start: 1957 Hemoglobin A1c measurement Diabetes: Hemoglobin A1C [facility] Start: 1957 Lipid panel Lipid Panel [facility] Start: 1957 Medicare Annual Wellness Visit [facility] Start: 1957 Potassium measurement Potassium Level [facility] Start: 1957 Screening for malignant neoplasm of colon [facility] End: 03-10-2024 Cancer Ag 19-9 [Units/volume] in Serum or Plasma CA 19-9 BLD Lab Routine Cancer of ampulla of Vater (HCC) Anemia due to vitamin B12 deficiency, unspecified B12 deficiency type Iron deficiency anemia, unspecified iron deficiency anemia type Every 3 weeks for 18 Occurrences starting 03/11/2023 until 03/10/2024 [facility] Work Phone: Comment on above: Every 3 weeks for 18 Occurrences startin g 03/11/2023 until 03/10/2024 End: 02-13-2023 CBC W Auto Differential panel - Blood CBC + DIFF Lab Routine Iron deficiency anemia, unspecified iron deficiency anemia type Macrocytosis Every other week for 20 Occurrences starting 02/13/2022 until 02/13/2023 [facility] Work Phone: Comment on above: Every [...] for 18 Occurrences starting 03/11/2023 until 03/10/2024 [facility] Work Phone: Comment on above: Every 3 weeks for 18 Occurrences startin g 03/11/2023 until 03/10/2024 End: 02-13-2023 Cobalamin (Vitamin B12) [Mass/volume] in Serum or Plasma VITAMIN B12 BLOOD Lab Routine Iron deficiency anemia, unspecified iron deficiency anemia type Macrocytosis Every other week for 20 Occurrences starting 02/13/2022 until 02/13/2023 [facility] Work Phone: Comment on above: Every [...] for 18 Occurrences starting 03/11/2023 until 03/10/2024 [facility] Work Phone: Comment on above: Every 3 weeks for 18 Occurrences startin g 03/11/2023 until 03/10/2024 Cobalamin (Vitamin B 12) [Mass/volume] in Serum or Plasma VITAMIN B12 Lab Routine 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) Iron deficiency anemia secondary to inadequate dietary iron intake Gastrointestinal hemorrhage associated with duodenitis 07/01/2024 1:54 PM [facility] End: 02-13-2023 Comprehensive metabolic 2000 panel - Serum or Plasma COMP METABOLIC PANEL Lab Routine Iron deficiency anemia, unspecified iron deficiency anemia type Macrocytosis Every other week for 20 Occurrences starting 02/13/2022 until 02/13/2023 [facility] Work Phone: Comment on above: Every [...] for 18 Occurrences starting 03/11/2023 until 03/10/2024 [facility] Work Phone: Comment on above: Every 3 weeks for 18 Occurrences startin g 03/11/2023 until 03/10/2024 Comprehensive metabo lic 2000 panel - Serum or Plasma [facility] End: 07-16-2024 EGD / Colonoscopy EGD [...] for 20 Occurrences starting 02/13/2022 until 02/13/2023 [facility] Work Phone: Comment on above: Every other week for 20 Occurrences shelia mckay 02/13/2022 until 02/13/2023 End: 03-10-2024 Ferritin [Mass/volume] in Serum or Plasma FERRITIN BLD Lab Routine Cancer of ampulla of Vater (HCC) Anemia due to vitamin B12 deficiency, unspecified B12 deficiency type Iron deficiency anemia, unspecified iron deficiency anemia type Every 3 weeks for 18 Occurrences starting 03/11/2023 until 03/10/2024 [facility] Work Phone: Comment on above: Every 3 weeks for 18 Occurrences startin g 03/11/2023 until 03/10/2024 Ferritin [Mass/volum e] in Serum or Plasma FERRITIN Lab Routine 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) Iron deficiency anemia secondary to inadequate dietary iron intake Gastrointestinal hemorrhage associated with duodenitis 07/01/2024 1:54 PM [facility] End: 02-13-2023 Folate [Mass/volume] in Serum or Plasma FOLATE SERUM Lab Routine Iron deficiency anemia, unspecified iron deficiency anemia type Macrocytosis Every other week for 20 Occurrences starting 02/13/2022 until 02/13/2023 [facility] Work Phone: Comment on above: Every other week for 20 Occurrences star ting 02/13/2022 until 02/13/2023 End: 03-10-2024 Folate [Mass/volume] in Serum or Plasma FOLATE SERUM Lab Routine Cancer of ampulla of Vater (HCC) Anemia due to vitamin B12 deficiency, unspecified B12 deficiency type Iron deficiency anemia, unspecified iron deficiency anemia type Every 3 weeks for 18 Occurrences starting 03/11/2023 until 03/10/2024 [facility] Work Phone: Comment on above: Every 3 weeks for 18 Occurrences startin g 03/11/2023 until 03/10/2024 Folate [Mass/volume] in Serum or Plasma FOLATE, SERUM Lab Routine 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) Iron deficiency anemia secondary to inadequate dietary iron intake Gastrointestinal hemorrhage associated with duodenitis 07/01/2024 1:54 PM [facility] End: 02-13-2023 Iron and Iron binding capacity panel - Serum or Plasma IRON + TIBC Lab Routine Iron deficiency anemia, unspecified iron deficiency anemia type Macrocytosis Every other week for 20 Occurrences starting 02/13/2022 until 02/13/2023 [facility] Work Phone: Comment on above: Every [...] for 18 Occurrences starting 03/11/2023 until 03/10/2024 [facility] Work Phone: Comment on above: Every 3 weeks for 18 Occurrences startin g 03/11/2023 until 03/10/2024 Iron and Iron bindin g capacity panel - Serum or Plasma IRON AND TIBC Lab Routine 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) Iron deficiency anemia secondary to inadequate dietary iron intake Gastrointestinal hemorrhage associated with duodenitis 07/01/2024 1:54 PM EST [facility] Microalbumin [Mass/volume] in Urine [facility] End: 07-16-2025 PET+CT Guidance for localization of tumor of Skull base to mid-thigh-- W 18F-FDG IV NM PET/CT SKULL-THIGH SUBSEQUENT Radiology Routine 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) Iron deficiency anemia secondary to inadequate dietary iron intake Gastrointestinal hemorrhage associated with duodenitis 1 Occurrences starting 06/16/2024 until 07/16/2025 [facility] Work Phone: Comment on above: 1 Occurrences starting 06/16/2024 until 07/16/2025 PET+CT Guidance for localization of tumor of Skull base to mid-thigh-- W 18F-FDG IV NM PET/CT SKULL-THIGH SUBSEQUENT Radiology Routine 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) Iron deficiency anemia secondary to inadequate dietary iron intake Gastrointestinal hemorrhage associated with duodenitis 07/01/2024 3:17 PM EST [facility] Work Phone: XR Cervical spine 5 Views [facility] Immunizations Immunization Date Immunization Notes Care Provider Srinivas waite 06-04-2023 influenza, high dose seasonal, preservative-free David Caputo Other [employer] Other 06-04-2023 influenza virus vaccine, unspecified formulation DO Rick Zapata Work Phone: [facility] 04-01-2022 Seasonal trivalent influenza vaccine, adjuvanted, preservative free Chair Phelan Work Phone: [facility] 04-01-2022 influenza virus vaccine, unspecified formulation Zahra May MD Work Phone: [facility] 07-17-2021 COVID-19 vaccine, ag e 12+ yr (PFIZER-BIONTECH - [place] TOP) Zahra May MD Work Phone: [facility] 04-04-2021 AS03 adjuvant Chair Phelan Work Phone: [facility] 04-04-2021 influenza virus vaccine, split virus (incl. purified surface antigen) David Caputo Other [facility] [employer] Other 04-04-2021 influenza virus vaccine, unspecified formulation DO Rick Zapata Work Phone: [facility] 04-04-2021 Seasonal trivalent influenza vaccine, adjuvanted, preservative free Zahra May MD Work Phone: [facility] 10-24-2020 COVID-19 vaccine, ag e 12+ yr (PFIZER-BIONTECH - PURPLE TOP) Zahra May MD Work Phone: [facility] 10-03-2020 COVID-19 vaccine, ag e 12+ yr (PFIZER-BIONTECH - PURPLE TOP) Zahra May MD Work Phone: [facility] 03-29-2020 influenza nasal, unspecified formulation Chair Phelan Work Phone: [facility] 03-29-2020 influenza virus vaccine, unspecified formulation [facility] Caputo [facility]: [facility] DO Work Phone: 03-29-2020 influenza, seasonal, injectable Zahra May MD Work Phone: [facility] 03-22-2020 influenza virus vaccine, split virus (incl. purified surface antigen) David Caputo Other [employer] [facility] [employer] Other 03-22-2020 influenza virus vaccine, unspecified formulation DO Rick Zapata Work Phone: [facility] 03-22-2020 influenza, injectabl e, quadrivalent, contains preservative Zahra May MD Work Phone: [facility] 05-02-2019 influenza, injectabl e, quadrivalent, contains preservative Zahra May MD Work Phone: [facility] 03-29-2019 influenza nasal, unspecified formulation Chair Phelan Work Phone: [facility] 03-29-2019 influenza virus vaccine, unspecified formulation David Caputo Work Phone: [facility] Work Phone: 03-29-2019 influenza, seasonal, injectable Zahra May MD Work Phone: [facility] 03-29-2018 influenza nasal, unspecified formulation Chair Phelan Work Phone: [facility] 03-29-2018 influenza virus vaccine, unspecified formulation [facility] Caputo Work [facility]: [facility] DO Work Phone: 02-14-2018 influenza, injectabl e, quadrivalent, preservative free Zahra May MD Work Phone: [facility] 09-02-2017 tuberculin skin test ; unspecified formulation Dr. Adriane Espitia [facility] 09-01-2017 influenza, high-dose seasonal, quadrivalent, 0.7mL dose, preservative free Dr. Adriane Espitia [facility] 09-01-[address] Adriane Espitia [facility] 08-14-2017 pneumococcal polysaccharide vaccine, 23 valent Zahra May MD Work Phone: [facility] Work Phone: 04-22-2017 influenza virus vaccine, split virus (incl. purified surface antigen) David Caputo Other [facility] [employer] Other 04-22-2017 influenza virus vaccine, unspecified formulation DO Rick Aminpeyton Work Phone: [facility] 04-13-2017 influenza, injectabl e, quadrivalent, contains preservative Zahra aMy MD Work Phone: [facility] 03-29-2017 influenza nasal, unspecified formulation Chair Phelan Work Phone: [facility] 03-29-2017 influenza virus vaccine, unspecified formulation David Caputo Work Phone: [facility] DO Work Phone: 03-03-2017 influenza, injectabl e, quadrivalent, preservative free Zahra May MD Work Phone: [facility] 07-30-2016 pneumococcal conjuga te vaccine, 13 valent David Caputo Work Phone: [facility] 04-29-2011 influenza nasal, unspecified formulation Chair Phelan Work Phone: [facility] 04-29-2011 influenza virus vaccine, unspecified formulation David Caputo Work Phone: [facility] 250 DO Work Phone: Payers Date Payer Category Payer Medicare [id number] 2023 Unknown [id number] 2023 Self-pay [id number] 2023 Unknown [id number] 2021 [place] [id number] 2021-Present [phone] [address] [place] [address] Medicaid [id number] 2021 Medicaid [id number] 2020 Medicare MEDICARE MEDICAR E A AND B [id number] 2020-Present [phone] [place] [address] Medicare [id number] 2020 Medicare [id number] 1959 Medicaid [id number] 1959 Medicare [id number] 1957 Unknown [id number] 93 1957 Unknown [id number] 93 1957 Unknown [id number] 93 1957 Unknown [id number] 93 1957 Unknown [id number] 93 1957 Unknown [id number] 93 1957 Unknown [id number] [id number] 56 1957 Unknown [id number] [id number] 56 1957 Unknown [id number] 244 Private Health Insurance [id number] Private Health Insurance [id number] Unknown Unknown [employer] BC/BS [id number] Unknown [id number] 31 Unknown [id number] 31 Unknown [id number] 31 Social History Date Type Detail Facility Start: 08-13-2017 End: 02-13-2022 Tobacco smoking status NHIS Ex-smoker [facility] End: 06-29-2010 History of tobacco use Current smoker [facility] End: 06-29-2010 History of tobacco use Cigarette Smoker [facility] Start: 08-13-2017 End: 02-13-2022 Tobacco use and exposure Smokeless tobacco non-user [facility] Start: 12-03-2021 End: 06-16-2024 Alcohol intake Current drinker of alcohol (finding) [facility] Start: 12-03-2021 End: 10-31-2022 Alcohol intake [facility] Start: 08-13-2017 History SDOH Alcohol Comment occasional beer [facility] Start: 1955 Sex Assigned At Not on file C [facility] Start: 11-25-2021 End: 10-29-2023 Exposure to SARS-CoV-2 (event) Not sure [facility] Start: 10-31-2022 End: 11-28-2022 Sex Assigned At [facility] History of tobacco use Passive smoker [facility] Adult Depression Screening Assessment 0 [facility] Start: 1955 Sex Assigned At Male F [facility] Start: 01-27-2023 Unknown if ever smoked [facility] Start: 06-04-2023 End: 06-04-2023 Tobacco smoking status NHIS Never smoked tobacco (finding) [facility] Start: 10-29-2023 Alcoholic beverage intake Lifetime non-drinker (finding) [facility] Work Phone: Start: 05-06-2024 Sex Male (finding) [facility] Medical Equipment Procedure Code Equipment Code [...] Type Note Facility 07-15-2024 Note HNO ID: [id number] Author: LIVIER SEAY MA Service: ? Author Type: Fishing Rod Trimmer Type: Progress Notes Filed: 07/15/2024 14:39 Note Text: Patient Identification confirmed: yes. Injection given and documented on AUG per provider order. Livier Seay MA [facility] 07-15-2024 History of Present illness Narrative Patient Identification confirmed: yes. Injection given and documented on AUG per provider order. Livier Seay MA documented in this encounter [facility] 07-15-2024 Instructions Rona Cárdenas - 07/15/2024 2:30 PM EST B12 shot today and q 4 weeks Continue folic acid 1 mg daily as Rx'd Referral to general surgery at [facility] in 4 weeks Labs same day Continue following with Dr. Caputo for DMII management documented in this encounter [facility] 07-15-2024 History of Present illness Narrative Images from the original note were not included. NAME: Rocio Jackson CLINIC NO.: [id number] DATE OF SERVICE: July 15, 2024 (Abviviana) [...] as Rx'd Referral to general surgery at [facility] in 4 weeks Labs same day Continue [...] significant histologic abnormality 05/27/2024-05/31/2024 - Admitted at [facility], transferred to [facility] with lower GI bleed, hypotension, tachycardia [...] will refer him to general surgery at [place]. He denies blood in his tool, endorses nausea/vomiting. WBC is decreased at 2.79 compared to 3.52 in 02/2024, HGB has improved. Updated Visit, June 16, 2024: Rocio and his son Rocio Ruby Return after a recent hospitalization at [facility]. I will need to request their records [...] open wounds. CTCAP done late December in [place] concerning for possible metastatic disease. Updated Visit, [...] with his son Joaquin. Worked at a [employer]. Doing well overall is at his baseline. 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 His PFTs are pending, and he was [...] take one tablet by mouth once daily [id number] (ZENPEP) 25,000-79,000- 105,000 unit delayed release capsule Take 2 capsules by mouth three times a day with meals. [id number] (CREON 24) 24,000-76,000 -120,000 unit delayed release [...] 5 blood transfusions Coronary artery disease involving comanche coronary artery Diabetes mellitus (HCC) 2017 Duodenal cancer (HCC) Dyslipidemia Fatigue Glaucoma Hypertension Iron deficiency anemia secondary to inadequate dietary iron intake 09/10/2023 Myocardial infarction (HCC) 05/15/2011 PTSD (post-traumatic stress disorder) PAST SURGICAL HISTORY Procedure Laterality Date ANGIOPLASTY HX 05/15/2011 2 stents s[place]p [place];[facility] CHOLECYSTECTOMY 08/11/2017 [facility] COLONOSCOPY COLONOSCOPY PAST SURGICAL HISTORY OF Cardiac Stents x2 PAST SURGICAL HISTORY OF 09/2017 [place] PICC LINE INSERT/CONSULT 08/16/2017 Social History Tobacco [...] which included preparing to see the patient, mgqd-iv-ufvb patient care, completing clinical documentation, obtaining and/or reviewing separately obtained history, performing a medically appropriate examination, counseling and educating the patient/family/caregiver, ordering medications, tests, or procedures, independently interpreting results (not separately reported), communicating results to the patient/family/caregiver, and care coordination (not separately reported). Zahra May MD, CPE Hematology and Oncology Services Provided at: [facility], [place], [place] Scribe Attestation: This note was scribed [...] Dr. David Caputo [address] [facility] [id number] documented in this encounter [facility] 07-15-2024 Note HNO ID: [id number] Author: ZAHRA MAY MD Service: ? Author Type: Physician Type: Progress Notes Filed: 07/16/2024 08:06 Note Text: NAME: Rocio Jackson [facility] NO.: [id number] DATE OF SERVICE: July 15, 2024 (Iftikhar) [...] as Rx'd Referral to general surgery at [facility] in 4 weeks Labs same day Continue [...] significant histologic abnormality 05/27/2024-05/31/2024 - Admitted at [facility], transferred to [facility] with lower GI bleed, hypotension, tachycardia [...] borderline mesenteric l (more content not included)... [facility] 07-01-2024 History of Present illness Narrative [...] 1406 PATIENT DISCHARGED TO: Ambulatory patient, left [place] department area. Is this a therapy: No [...] TIME: 2:33 PM documented in this encounter [facility] 07-01-2024 Note HNO ID: [id number] Author: SUSAN PROCTOR RT(R) Service: ? Author [...] 1406 PATIENT DISCHARGED TO: Ambulatory patient, left [place] department area. Is this a therapy: No A Diagnostic radioactive procedure has taken place, with no further precautions necessary other than routine body substance precautions. More information regarding radiation safety can be found using this link: [email or web address] [email or web address] SIGNATURE: RT Jesus(R) PATIENT NAME: Rocio Jackson DATE: July 01, 2024 TIME: 2:11 PM PAGER/CONTACT #: [facility] 07-01-2024 Note HNO ID: [id number] Author: LONA GARCIA RN Service: ? Author [...] DATE: July 01, 2024 TIME: 2:33 PM [facility] 06-16-2024 History of Present illness Narrative Images from the original note were not included. NAME: Rocio Jackson [facility] NO.: [id number] DATE OF SERVICE: June 16, 2024 ([facility]) Some elements in this clinic [...] of recurrence. PLAN: Need EGD/Colonoscopy results from [facility] from April 2024 Need records of hospitalization [...] abdomen or pelvis. 05/27/2024-05/31/2024 - Admitted at [facility], transferred to [facility] with lower GI bleed, hypotension, tachycardia [...] Ruby Return after a recent hospitalization at [facility]. I will need to request their records [...] open wounds. CTCAP done late December in [place] concerning for possible metastatic disease. Updated Visit, [...] with his son Joaquin. Worked at a [employer]. Doing well overall is at his baseline. 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 His PFTs are pending, and he was [...] take one tablet by mouth once daily efgxkl-cfyphdsw-auoxalc (ZENPEP) 25,000-79,000- 105,000 unit delayed release capsule Take 2 capsules by mouth three times a day with meals. vzdgir-xgrysbyr-cfuvzqf (CREON 24) 24,000-76,000 -120,000 unit delayed release [...] 5 blood transfusions Coronary artery disease involving comanche coronary artery Diabetes mellitus (HCC) 2017 Duodenal cancer (HCC) Dyslipidemia Fatigue Glaucoma Hypertension Iron deficiency anemia secondary to inadequate dietary iron intake 09/10/2023 Myocardial infarction (HCC) 05/15/2011 PTSD (post-traumatic stress disorder) PAST SURGICAL HISTORY Procedure Laterality Date ANGIOPLASTY HX 05/15/2011 2 stents [place]p [place];[facility] CHOLECYSTECTOMY 08/11/2017 [facility] COLONOSCOPY COLONOSCOPY PAST SURGICAL HISTORY OF Cardiac Stents x2 PAST SURGICAL [facility] Social History Tobacco Use [...] which included preparing to see the patient, rxoc-jt-vxqy patient care, completing clinical documentation, obtaining and/or reviewing separately obtained history, performing a medically appropriate examination, counseling and educating the patient/family/caregiver, ordering medications, tests, or procedures, independently interpreting results (not separately reported), communicating results to the patient/family/caregiver, and care coordination (not separately reported). Zahra May MD, CPE Hematology and Oncology Services Provided at: [place], [place] CC: Dr. David Caputo [address] [facility] [id number] Patient was recently hospitalized at [facility]. Lillian Tucker MA documented in this encounter [facility] 06-16-2024 Instructions Zahra May MD - 06/16/2024 3:40 PM EST Need EGD/Colonoscopy results from [facility] from April 2024 Need records of hospitalization as well - D/C summary etc. B12 shot on 04/01 and q 4 weeks Continue folic acid 1 mg daily as Rx'd PET/CT scans with labs repeated when approved. RTC 1 week after Continue following with Dr. Caputo for DMII management documented in this encounter [facility] 06-16-2024 Note HNO ID: [id number] Author: ZAHRA MAY MD Service: ? Author Type: Physician Type: Progress Notes Filed: 06/16/2024 17:36 Note Text: NAME: Rocio Jackson [facility] NO.: [id number] DATE OF SERVICE: June 16, 2024 ([place]don) [...] of recurrence. PLAN: Need EGD/Colonoscopy results from [facility] from April 2024 Need records of hospitalization [...] abdomen or pelvis. 05/27/2024-05/31/2024 - Admitted at [facility], transferred to [facility] with lower GI bleed, hypotension, tachycardia [...] with IV contrast: (more content not included)... [facility] 06-16-2024 Note HNO ID: [id number] Author: LILLIAN TUCKER MA Service: ? Author Type: Fishing Rod Trimmer Type: Progress Notes Filed: 06/16/2024 17:36 Note Text: Patient was recently hospitalized at [facility]. Lillian Tucker MA [facility] 06-09-2024 History of Present illness Narrative [...] PATIENT PRESENTS WITH AN IMPLANTABLE OR ATTACHED SENIOR ANALYST MARKET INTELLIGENCE: No RADIOLOGY DEPARTMENT: CT; Exam(s) Completed: Chest [...] TIME: 1:46 PM documented in this encounter [facility] 06-09-2024 Note HNO ID: [id number] Author: SUSAN PROCTOR RT(R) Service: ? Author [...] PATIENT PRESENTS WITH AN IMPLANTABLE OR ATTACHED SENIOR ANALYST MARKET INTELLIGENCE: No RADIOLOGY DEPARTMENT: CT; Exam(s) Completed: Chest Abdomen Pelvis PERIPHERAL IV DATA: Site assessment: Clean,Dry and Intact, Site disposition Discontinued SIGNED BY: RT Jesus(R) June 09, 2024 1:46 PM [facility] 06-09-2024 Note HNO ID: [id number] Author: FER DEGROOT RN Service: ? Author [...] DATE: June 09, 2024 TIME: 1:46 PM [facility] 05-31-2024 Note Met with patient and his son. They are declining home healthcare at this time and plan on following up with therapies as an outpatient. [facility] 05-31-2024 Note Physical Therapy Missed Therapy Documentation 05/31/24 1520 General Missed Time Reason Other (Comment) Subjective Per nursing staff, pt's son is present for pt's home discharge this afternoon; requesting OP therapy. No PT performed. Time Calculation Start Time 1520 Stop Time 1520 (Check, no charge) Time Calculation (min) 0 min Srinivasan Dooley PTA [facility] 05-31-2024 Note Hospital Medicine Discharge Summary Final [...] who admitted from ER when transferred from [facility] multiple medical problems including history of [...] above mentioned issues patient was transferred from [facility] to [facility] ER.patient has been on Eliquis for paroxysmal atrial fibrillation. He has history of prior [place] and stenting in 2010 and was found [...] Your Medications These [facility] [address] [facility] [address] pantoprazole 40 mg EC tablet Rocio has [...] Test Results P (more content not included)... [facility] 05-31-2024 Note [facility] healt daniele has declined the referral. Sent a referral to [facility]. [facility] 05-31-2024 Note -------- Attestation signed by Storm Wright MD at 05/31/2024 5:11 PM Patient was seen by resident staff. I reviewed with resident staff overnight events, exam and laboratory findings, assessment and management plan. Storm Wright MD -------- [facility] General Surgery DAILY PROGRESS NOTE Subjective Patient [...] Agent, Strain, 3D, Bubble Study 1 [facility] Heart Station [address] [place] [address] [phone] (fax) Echocardiogram-[facility] Name: ROCIO JACKSON Study Date: 05/30/2024 02:06 PM B/P: 123 mmHg/77 mmHg HR: 77 bpm Date of : 1955 Location: [facility] Height: 69 in. Age: 68 year(s) Patient Room: [facility] Weight: 142 lb. Gender: Male [...] remaining scored lef (more content not included)... 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 No I (social work business analytics intern) met with patient to introduce self [...] He stated that he was once at [facility] and did not want to go back and he just wants to go home with his son and daughter who provide him assistance. I suggested that he receives [facility] services if he goes home, and he stated that he has utilized [facility] and would like a referral sent back to them. I facilities the referral to [facility], awaiting response. [facility] 05-30-2024 Note Physical Therapy Physical Therapy Evaluation Patient Name: Rocio Joe TorresVentura : 1955 Today's Date: 05/30/2024 Time In: 1028 Time Out: 1105 Pt Summary: Pt is 68 y.o male transferred to [facility] with c/o 3-day history of melena [...] Diagnosis GI bleed Atherosclerotic heart disease of comanche coronary artery without angina pectoris CHF (congestive heart failure) ([facility]) Type II diabetes mellitus ([facility]) Former smoker Essential hypertension Gastro-esophageal reflux disease without esophagitis PAF (paroxysmal atrial fibrillation) ([facility]) History reviewed. No pertinent past [...] session General Assessment General Assessment Hearing: Mild WRANGELL Skin Integrity: Mepilex to bilateral heels Hand [...] Dynamic Sitting Balance (more content not included)... 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 No pertinent past [...] carryover General Assessment General Assessment Hearing: Mild WRANGELL Skin Integrity: Mepilex to bilateral heels Hand [...] mobility, later states family transfers him to/from [facility] and requires assist to propel) Receives Help From: Family ADL Assistance: Needs assistance Bath: (bed bath) Toileting: (briefs) Feeding: (daughter assists with self-feeding, pt endorses difficulty grasping items) Homemaking Assistance: Needs assistance Prior Function Comments: Pt reports recently bedbound, does not get OOB much and has to rely on family to get in/out of [facility] and in/out of home, reports family bumps him up stairs in [facility] Static Sitting Balance Static Sitting Balance Static [...] Balance Dynamic Standi (more content not included)... [facility] 05-30-2024 Note Hospital Medicine Daily Progress Note - 05/30/2024 10:30 AM; Room: 5154/5154-01 Admission: 05/27/2024 7:12 PM; Length of stay: 3 days THE HOSPITALIST TEAM PREFERS TO USE [employer] FOR NON-URGENT COMMUNICATION 7AM-7PM. IF I DO NOT RESPOND WITHIN 20 MINUTES OR URGENT MATTERS, PLEASE CALL THROUGH THE INFORMATION SUPPORT PROJECT MANAGER. FROM 7PM-7AM, PLEASE PAGE [phone](COVR). Code Status: DNR CC-A Barriers to Discharge: [...] imaging from July 2019, was transferred from [facility] with a 3-day history of melena [...] intravenous, q24h influ (more content not included)... [facility] 05-30-2024 Note [facility] Teaching GI Ser vice Consult Gastroenterology/Hepatology [...] therapy in December 2017 was transferred from [facility] as a case of GI bleeding. [...] that the patient was following up with [facility]. He had EGD and colonoscopy done in [...] into maroon-colored stool. He was transferred from [facility] due to GI bleed and hemodynamic [...] arrange for outpatien (more content not included)... [facility] 05-30-2024 Note -------- Attestation signed by Storm [...] as WBC level was low yesterday. -------- [facility] General Surgery DAILY PROGRESS NOTE Subjective Patient [...] on 05/29/24 Attending Physician: Sarthak Reyes MD Solar Field Service Technician: Shiela Castillo MD Procedure Details: Informed consent [...] Rocio A Fris (more content not included)... [facility] 05-29-2024 Note Hospital Medicine Daily Progress Note - 05/29/2024 11:55 AM; Room: 5154/5154-01 Admission: 05/27/2024 7:12 PM; Length of stay: 2 days THE HOSPITALIST TEAM PREFERS TO USE [employer] CHAT FOR NON-URGENT COMMUNICATION 7AM-7PM. IF I DO NOT RESPOND WITHIN 20 MINUTES OR URGENT MATTERS, PLEASE CALL THROUGH THE INFORMATION SUPPORT PROJECT MANAGER. FROM 7PM-7AM, PLEASE PAGE [phone](COVR). Code Status: DNR CC-A Barriers to Discharge: [...] imaging from July 2019, was transferred from [facility] with a 3-day history of melena [...] intravenous, q24h inf (more content not included)... [facility] 05-29-2024 Note Patient: Rocio Saeed Procedure Summary Date: 05/29/24 Room / Location: [facility] Main Operating Room Anesthesia Start: 824 [...] per anesthesia protocol. No notable events documented. [facility] 05-29-2024 Note Patient: Rocio Saeed Procedure Information Date/Time: 05/29/24829 Scheduled providers: Sarthak Reyes MD Procedure: EGD Location: [facility] Main Operating Room Relevant Problems Anesthesia (within normal limits) Cardio (+) Atherosclerotic heart disease of comanche coronary artery without angina pectoris (S/p stenting x2) (+) CHF (congestive heart failure) ([facility]) (Echocardiogram not performed) (+) Essential hypertension (+) PAF (paroxysmal atrial fibrillation) ([facility]) (Afib with RVR on EKG this admission) Endo (+) Type II diabetes mellitus ([facility]) (Reports on oral medications) GI [...] 70 QT Interval 258 QTC CALCULATION(BAZETT) 400 R-Dearing 19 T Wave Dearing 124 Impression Atrial fibrillation with rapid ventricular [...] Plan discussed with attending. Additional Equipment Requests [facility] 05-29-2024 Note -------- Attestation signed by Storm [...] closely and monitor patient's bowel function. -------- [facility] General Surgery DAILY PROGRESS NOTE Subjective Patient [...] nonspecific mesenteric lymph nodes likely reactive basis Moore is grossly pathological by size criteria. There [...] infectious etiology. Th (more content not included)... [facility] 05-28-2024 Note 05/28/24 1243 Admission Assessment Questions [...] Status Interested Does the patient have a block and case maker assigned to them through their insurance? No [...] to send link and activate MyChart? No [facility] 05-28-2024 Note Hospital Medicine History and Physical 05/28/2024 12:29 AM THE HOSPITALIST TEAM PREFERS TO USE [employer] CHAT FOR NON-URGENT COMMUNICATION 7AM-7PM. IF I DO NOT RESPOND WITHIN 20 MINUTES OR URGENT MATTERS, PLEASE CALL THROUGH THE INFORMATION SUPPORT PROJECT MANAGER. FROM 7PM-7AM, PLEASE PAGE [phone](COVR). Chief Complaint Chief Complaint Patient presents with Shortness of Breath History of Present Illness Rocio Jackson is an 68 y.o. male who admitted from ER when transferred from [facility] multiple medical problems including history of [...] above mentioned issues patient was transferred from [facility] to [facility] ER.patient has been on Eliquis for paroxysmal atrial fibrillation. He has history of prior [place] and stenting in 2011 and was found [...] medications are reviewed (more content not included)... [facility] 04-28-2024 Nurse Note Patient Identification confirmed: yes. Injection given and documented on AUG per provider order. Livier Seay MA [facility] 04-28-2024 Nurse Note Patient Identification confirmed: yes. Injection given and documented on AUG per provider order. Livier Seay MA documented in this encounter [facility] 04-01-2024 Telephone encounter Note The following approved medication requests have been transmitted electronically. Requested Prescriptions Signed Prescriptions Disp Refills metoclopramide HCl (REGLAN) 10 mg tablet 90 tablet 3 Sig: Take 1 tablet by mouth three times a day with meals. Authorizing Provider: ROLA GORDON APRN.CNP [facility] 04-01-2024 Miscellaneous Notes The following approved medication requests have been transmitted electronically. Requested Prescriptions Signed Prescriptions Disp Refills metoclopramide HCl (REGLAN) 10 mg tablet 90 tablet 3 Sig: Take 1 tablet by mouth three times a day with meals. Authorizing Provider: ROLA GORDON APRN.CNP documented in this encounter [facility] 03-31-2024 Nurse Note Patient Identification confirmed: yes. Injection given and documented on MAR per provider order. Srinivasan See MA [facility] 03-31-2024 Nurse Note Patient Identification confirmed: yes. Injection given and documented on MAR per provider order. Srinivasan See MA documented in this encounter [facility] 03-10-2024 Instructions Rona Cárdenas - 03/10/2024 2:39 PM EDT B12 shot on 04/01 and q 4 weeks Continue folic acid 1 mg daily as Rx'd CT scans with labs in 3 months RTC 1 week after Continue following with Dr. Caputo for DMII management documented in this encounter [facility] 03-10-2024 History of Present illness Narrative Images from the original note were not included. NAME: Rocio Jackson CLINIC NO.: [id number] DATE OF SERVICE: March 10, 2024 ([facility]) Some elements in this clinic note that are critical to medical decision making have been carefully reviewed and included from a prior [facility] Referring Provider: Dr. Vanessa Bejarano Additional Clinicians [...] open wounds. CTCAP done late December in [place] concerning for possible metastatic disease. Updated Visit, [...] with his son Joaquin. Worked at a [employer]. Doing well overall is at his baseline. 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 His PFTs are pending, and he was [...] mouth three times a day with meals. ychqqw-ocvrxbgu-ffqxzng (ZENPEP) 25,000-79,000- 105,000 unit delayed release capsule Take 2 capsules by mouth three times a day with meals. ydppbg-ybdknycr-abnkxsf (CREON 24) 24,000-76,000 -120,000 unit delayed release [...] 5 blood transfusions Coronary artery disease involving comanche coronary artery Diabetes mellitus (HCC) 2016 Duodenal cancer (HCC) Dyslipidemia Fatigue Glaucoma Hypertension Iron deficiency anemia secondary to inadequate dietary iron intake 09/10/2023 Myocardial infarction (HCC) 05/15/2011 PTSD (post-traumatic stress disorder) PAST SURGICAL HISTORY Procedure Laterality Date ANGIOPLASTY HX 05/15/2011 2 stents s/p [place];[facility] CHOLECYSTECTOMY 08/11/2017 [facility] COLONOSCOPY PAST SURGICAL HISTORY OF Cardiac Stents x2 PAST SURGICAL HISTORY OF 09/2017 [place] PICC LINE INSERT/CONSULT 08/16/2017 Social History Tobacco [...] which included preparing to see the patient, upnk-ds-tkvz patient care, completing clinical documentation, performing a medically appropriate examination, counseling and educating the patient/family/caregiver, ordering medications, tests, or procedures, independently interpreting results (not separately reported), communicating results to the patient/family/caregiver, and care coordination (not separately reported). Zahra May MD, CPE Hematology and Oncology Services Provided at: [place], [place] Scribe Attestation: This note was scribed [...] my direction. CC: Dr. David Caputo [address] [facility] [id number] documented in this encounter [facility] 03-10-2024 Note HNO ID: [id number] Author: ZAHRA MAY MD Service: ? Author Type: Physician Type: Progress Notes Filed: 03/12/2024 08:26 Note Text: NAME: Rocio Jackson CLINIC NO.: [id number] DATE OF SERVICE: March 10, 2024 (Iftikhar) [...] prominent central m (more content not included)... [facility] 03-03-2024 Nurse Note Patient Identification confirmed: yes. Injection given and documented on AUG per provider order. Livier Seay MA [facility] 03-03-2024 Nurse Note Patient Identification confirmed: yes. Injection given and documented on AUG per provider order. Livier Seay MA documented in this encounter [facility] 03-03-2024 History of Present illness [...] PATIENT PRESENTS WITH AN IMPLANTABLE OR ATTACHED SENIOR ANALYST MARKET INTELLIGENCE: No CREATININE: Creatinine Date Value Ref Range [...] contrast PATIENT DISCHARGED TO: Ambulatory patient, left [place] department area. A Diagnostic radioactive procedure has taken place, with no further precautions necessary other than routine body substance precautions. More information regarding radiation safety can be found using this link: [email or web address] [email or web address]%20Nuclear%20Med icine%[email or web address] SIGNATURE: DOMINIQUE Lee) PATIENT NAME: Rocio Jackson DATE: March 03, 2024 TIME: 1:14 PM PAGER/CONTACT #: documented in this encounter [facility] 03-03-2024 Note HNO ID: [id number] Author: SUSAN PROCTOR RT(R) Service: ? Author [...] PATIENT PRESENTS WITH AN IMPLANTABLE OR ATTACHED SENIOR ANALYST MARKET INTELLIGENCE: No CREATININE: Creatinine Date Value Ref Range [...] contrast PATIENT DISCHARGED TO: Ambulatory patient, left [place] department area. A Diagnostic radioactive procedure has taken place, with no further precautions necessary other than routine body substance precautions. More information regarding radiation safety can be found using this link: [email or web address] [email or web address]-% 20Diagnostic%20Nuclear%20Medicine%20 Procedures.pdf SIGNATURE: RT Jesus(R) PATIENT NAME: Rocio Jackson DATE: March 03, 2024 TIME: 1:14 PM PAGER/CONTACT #: [facility] 01-29-2024 Nurse Note Patient Identification confirmed: yes. Injection given and documented on MAR per provider order. Lillian Tucker MA [facility] 01-29-2024 Nurse Note Patient Identification confirmed: yes. Injection given and documented on MAR per provider order. Lillian Tucker MA documented in this encounter [facility] 01-08-2024 Nurse Note Patient Identification confirmed: yes. Injection given and documented on MAR per provider order. Lillian Tucker MA [facility] 01-08-2024 Nurse Note Patient Identification confirmed: yes. Injection given and documented on MAR per provider order. Lillian Tucker MA documented in this encounter [facility] 12-07-2023 Telephone encounter Note Pt daughterShiela, aware of MM message and denies any questions, needs or concerns at this time. Cassandra Hernandez RN [facility] 12-07-2023 Miscellaneous Notes Pt daughterShiela, [...] 12-03-23. Thank you documented in this encounter [facility] 12-07-2023 Telephone encounter Note Noneed for iron at this time Leila Wagner PA-C [facility] Work Phone: 12-07-2023 Telephone encounter Note MM: Please advise on Iron labs Cassandra Hernandez RN [facility] 12-03-2023 Nurse Note Patient Identification confirmed: yes. Injection given and documented on MAR per provider order. Lillian Tucker MA [facility] 12-03-2023 Nurse Note Patient Identification confirmed: yes. Injection given and documented on MAR per provider order. Lillian Tucker MA documented in this encounter [facility] 12-03-[address] Crooks is requesting Triage nurse to call patient with results of FE studies from today 12-03-23. Thank you [facility] 12-03-2023 Instructions Rona Thomas - [...] for DMII management documented in this encounter [facility] 12-03-2023 History of Present illness Narrative Images from the original note were not included. NAME: Rocio Jackson [facility] NO.: [id number] DATE OF SERVICE: December 03, 2023 (Iftikhar) [...] open wounds. CTCAP done late December in [place] concerning for possible metastatic disease. Updated Visit, [...] with his son Joaquin. Worked at a [employer]. Doing well overall is at his baseline. 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 His PFTs are pending, and he was [...] mouth three times a day with meals. pukftq-yssxbdeb-knrzsza (ZENPEP) 25,000-79,000- 105,000 unit delayed release capsule Take 2 capsules by mouth three times a day with meals. yavdlg-meamowtf-etchfyp (CREON 24) 24,000-76,000 -120,000 unit delayed release [...] 5 blood transfusions Coronary artery disease involving comanche coronary artery Diabetes mellitus (HCC) 2017 Duodenal cancer (HCC) Dyslipidemia Fatigue Glaucoma Hypertension Iron deficiency anemia secondary to inadequate dietary iron intake 09/10/2023 Myocardial infarction (HCC) 05/15/2011 PTSD (post-traumatic stress disorder) PAST SURGICAL HISTORY Procedure Laterality Date ANGIOPLASTY HX 05/15/2011 2 stents s/p WI;[facility] CHOLECYSTECTOMY 08/11/2017 [facility] COLONOSCOPY PAST SURGICAL HISTORY OF Cardiac Stents [...] which included preparing to see the patient, pifd-gn-kinq patient care, completing clinical documentation, performing a medically appropriate examination, counseling and educating the patient/family/caregiver, ordering medications, tests, or procedures, independently interpreting results (not separately reported), communicating results to the patient/family/caregiver, and care coordination (not separately reported). Zahra May MD, CPE Hematology and Oncology Services Provided at: [place], [place] Scribe Attestation: This note was scribed [...] under my direction. CC: Dr. David Caputo [address] [place] [phone] documented in this encounter [facility] 12-03-2023 Note HNO ID: [id number] Author: ZAHRA MAY MD Service: ? Author Type: Physician Type: Progress Notes Filed: 12/05/2023 15:00 Note Text: NAME: Rocio Jackson CLINIC NO.: [id number] DATE OF SERVICE: December 03, 2023 (Iftikhar) [...] resection margins a (more content not included)... [facility] 11-05-2023 Nurse Note Patient Identification confirmed: yes. Injection given and documented on MAR per provider order. Livier Seay MA [facility] 11-05-2023 Nurse Note Patient Identification confirmed: yes. Injection given and documented on MAR per provider order. Livier Seay MA documented in this encounter [facility] 10-29-2023 History of Present illness [...] Patient does have a history of prior WI and stenting in 2010 due to an anterior WI with two 4 x 18 and 4 [...] a day with meals., Disp: , Rfl: cblkjm-qrkxwhhs-joftwyz (Creon) 24,000-76,000 -120,000 unit capsule, Take 1 [...] discussion and plan. documented in this encounter [facility] Work Phone: 10-29-2023 Instructions Jimmy Dawkins MA [...] of your visit. documented in this encounter [facility] Work Phone: 10-08-2023 Nurse Note Patient Identification confirmed: yes. Injection given and documented on AUG per provider order. Livier Seay MA documented in this encounter [facility] 09-24-2023 Note HNO ID: [id number] Author: BRONWYN DIAZ RN Service: ? Author [...] son lives with and cares for pt. [facility] 09-21-2023 Note HNO ID: [id number] Author: MACKENZIE KNIGHT LSW Service: ? Author Type: Shoeshiner Type: Progress Notes Filed: 09/21/2023 11:38 Note Text: Patient appears on the [facility] First Time Treatment List for a non-oncology treatment. No psychosocial assessment is indicated. MARINO Andrade [facility] 09-21-2023 History of Present illness Narrative Patient appears on the [facility] First Time Treatment List for a non-oncology treatment. No psychosocial assessment is indicated. MARINO Andrade documented in this encounter [facility] 09-18-2023 Miscellaneous Notes Pt sister [...] Cassandra Hernandez RN documented in this encounter [facility] 09-10-2023 Nurse Note Patient Identification confirmed: yes. Injection given and documented on AUG per provider order. Livier Seay documented in this encounter [facility] 09-10-2023 History of Present illness Narrative Images from the original note were not included. NAME: Coleen Jacksonn CLINIC NO.: [id number] DATE OF SERVICE: September 10, 2023 ([place]) [...] open wounds. CTCAP done late December in [place] concerning for possible metastatic disease. Updated Visit, [...] with his son Joaquin. Worked at a [employer]. Doing well overall is at his baseline. 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 His PFTs are pending, and he was [...] petechiae. ALLERGIES: ALLERGIES No Known Allergies MEDICATIONS: fmdbje-tuvidcmf-qnelyjm (ZENPEP) 25,000-79,000- 105,000 unit delayed release capsule Take 2 capsules by mouth three times a day with meals. metoclopramide HCl (REGLAN) 10 mg tablet Take 1 tablet by mouth three times a day with meals. tfvqjl-jydntldy-tlhyneo (CREON 24) 24,000-76,000 -120,000 unit delayed release [...] 5 blood transfusions Coronary artery disease involving comanche coronary artery Diabetes mellitus (HCC) 2017 Duodenal cancer (HCC) Dyslipidemia Fatigue Glaucoma Hypertension Iron deficiency anemia secondary to inadequate dietary iron intake 09/10/2023 Myocardial infarction (HCC) 05/15/2011 PTSD (post-traumatic stress disorder) PAST SURGICAL HISTORY Procedure Laterality Date ANGIOPLASTY HX 05/15/2011 2 stents s/p [place];[facility] CHOLECYSTECTOMY 08/11/2017 [facility] COLONOSCOPY PAST SURGICAL HISTORY OF Cardiac Stents x2 PAST SURGICAL HISTORY OF 09/2017 [place] PICC LINE INSERT/CONSULT 08/16/2017 Social History Tobacco [...] which included preparing to see the patient, xcaq-kr-zfxe patient care, completing clinical documentation, performing a medically appropriate examination, counseling and educating the patient/family/caregiver, ordering medications, tests, or procedures, independently interpreting results (not separately reported), communicating results to the patient/family/caregiver, and care coordination (not separately reported). Zahra May MD, CPE Hematology and Oncology Services Provided at: [place], [place] Scribe Attestation: This note was scribed [...] my direction. CC: Dr. David Caputo [address] [facility] [phone] documented in this encounter [facility] 09-10-2023 Note HNO ID: [id number] Author: ZAHRA MAY MD Service: ? Author Type: Physician Type: Progress Notes Filed: 09/10/2023 21:16 Note Text: NAME: Rocio Jackson CLINIC NO.: [id number] DATE OF SERVICE: September 10, 2023 (Iftikhar) [...] free of sarai (more content not included)... [facility] 09-10-2023 Instructions Rona Thomas - 09/10/2023 2:12 PM EDT B12 shot today and every 4 weeks. IV iron when approved (previously received Monoferric) Patient will continue folic acid 1 mg daily as Rx'd. continue following with Dr. Caputo for DMII management. RTC in 3 months Labs [address] scans in 6 months documented in this encounter [facility] 09-10-2023 Miscellaneous Notes Approved for free Creon until 06/28/2024. Patient should receive shipment in 5-7 business days. Artur Reynolds PharmD, BCOP documented in this encounter [facility] 09-08-2023 Miscellaneous Notes Per insurance Zenpep is preferred and has better coverage at mail order for patient Artur Reynolds PharmD, BCOP documented in this encounter [facility] 09-04-2023 Miscellaneous Notes Spoke with [...] is a rx for Rocio at the [facility] in [place]. She verbalized understanding. Artur Reynolds PharmD, BCOP Daughter, Shiela called back to discuss free drug program information. Please call Cassandra Hernandez RN Printed free drug application for Creon from [employer] website: left message for patient's daughter to [...] for a 3 mo supply. Pharmacist at [facility] called around for Zenpep (creon substitute) and Remy MURCIA is able to fill a 30 day supply for 600 dollars. Pharmacy: are there any programs to assist pt? Chris: pt has an appt with you tomorrow to discuss further Cassandra Hernandez RN documented in this encounter [facility] 09-03-2023 History of Present illness [...] PATIENT PRESENTS WITH AN IMPLANTABLE OR ATTACHED SENIOR ANALYST MARKET INTELLIGENCE: No RADIOLOGY DEPARTMENT: CT; Exam(s) Completed: Chest [...] TIME: 2:25 PM documented in this encounter [facility] 09-03-2023 Miscellaneous Notes Encounter addended by: Fer Degroot RN on: 09/03/2023 2:26 PM Actions taken: Clinical Note Signed documented in this encounter [facility] 09-03-2023 Note Encounter addended b y: Fer Degroot RN on: 09/03/2023 2:26 PM Actions taken: Clinical Note Signed [facility] 09-03-2023 Note HNO ID: [id number] Author: LAUREN BONDS RT(Pilar) Service: ? Author [...] PATIENT PRESENTS WITH AN IMPLANTABLE OR ATTACHED SENIOR ANALYST MARKET INTELLIGENCE: No RADIOLOGY DEPARTMENT: CT; Exam(s) Completed: Chest Abdomen Pelvis PERIPHERAL IV DATA: Site assessment: Clean,Dry and Intact, Site disposition Discontinued SIGNED BY: RT Mahendra(R) September 03, 2023 1:12 PM [facility] 09-03-2023 Note HNO ID: [id number] Author: FER DEGROOT RN Service: ? Author [...] DATE: September 03, 2023 TIME: 2:25 PM [facility] 08-11-2023 Miscellaneous Notes ----- Message from Rick Zapata DO sent at 08/11/2023 7:07 AM EST ----- Please let patient know that he had duodenitis which is inflammation and he should be on a proton pump inhibitor such as omeprazole. He should take that for 8 weeks. He should follow up with Hematology. Thanks, Dr. Salgado Spoke with Sophia BATEMAN at [facility] regarding patient's pathology results. Sophia verbally understood. Informed Sophia I would fax results and clarification on dosage of Omeprazole. [facility] Telephone encounter Note ----- Message from Rick Zapata DO sent at 08/11/2023 7:07 AM EST ----- Please let patient know that he had duodenitis which is inflammation and he should be on a proton pump inhibitor such as omeprazole. He should take that for 8 weeks. He should follow up with Hematology. Thanks[facility]. Salgado [facility] Telephone encounter Note Spoke with Sophia BATEMAN at [facility] regarding patient's pathology results. Sophia verbally understood. Informed Sophia I would fax results and clarification on dosage of Omeprazole. [facility] 07-14-2023 History general N arrative - Reported Type Medical History BMI 20.0-20.9, adult Medical History Paroxysmal atrial fibrillation Medical History Lumbar pain Medical History Essential hypertension Medical History Tachypnea on examination Medical History Dyspnea on exertion Medical History Anxiety, generalized Medical History Anemia, macrocytic Medical History Elevated LFTs Medical History Fatigue Medical History CAD in comanche artery Medical History Malignant neoplasm of duodenum Surgical History heart stent 2010 Surgical History stomach ulcer 2017 Surgical History gallbladder 2018 Surgical History whipple 2017 Surgical History colonoscopy 2019 Hospitalization History SEE SURGICAL HX [facility] Other 01-16-2024 Evaluation note* Encounter Date Diagnosis Assessment Notes Treatment Notes Treatment Clinical Notes Jun, Anxiety disorder, unspecified (ICD-10 - F41.9) [facility] 01-02-2024 Evaluation note* Encounter Date Diagnosis Assessment Notes Treatment Notes Treatment Clinical Notes Jun, Anxiety, generalized (ICD-10 - F41.1) [facility] Other 12-18-2023 History general Narrative - Reported* Type Description Date Medical History BMI 20.0-20.9, adult Medical History Paroxysmal atrial fibrillation Medical History Lumbar pain Medical History Essential hypertension Medical History Tachypnea on examination Medical History Dyspnea on exertion Medical History Anxiety, generalized Medical History Anemia, macrocytic Medical History Elevated LFTs Medical History Fatigue Medical History CAD in comanche artery Medical History Malignant neoplasm of duodenum Surgical History heart stent 2010 Surgical History stomach ulcer 2016 Surgical History gallbladder 2018 Surgical History whipple 2017 Surgical History colonoscopy 2019 Hospitalization History SEE SURGICAL HX [facility] 12-07-2023 Evaluation note* Encounter Date Diagnosis [...] Pain in left hand (ICD-10 - M79.642) [facility] 11-24-2023 Evaluation note* Encounter Date Diagnosis Assessment Notes Treatment Notes Treatment Clinical Notes Apr, Anxiety disorder, unspecified (ICD-10 - F41.9) [facility] 11-21-2023 Evaluation note* Encounter Date Diagnosis Assessment Notes Treatment Notes Treatment Clinical Notes Apr, Anxiety, generalized (ICD-10 - F41.1) [facility] 11-08-2023 Evaluation note* Encounter Date Diagnosis Assessment Notes Treatment Notes Treatment Clinical Notes Apr, Anxiety, generalized (ICD-10 - F41.1) [facility] Other 10-19-2023 History general Narrative - Reported* Type Description Date Medical History BMI 20.0-20.9, adult Medical History Paroxysmal atrial fibrillation Medical History Lumbar pain Medical History Essential hypertension Medical History Tachypnea on examination Medical History Dyspnea on exertion Medical History Anxiety, generalized Medical History Anemia, macrocytic Medical History Elevated LFTs Medical History Fatigue Medical History CAD in comanche artery Medical History Malignant neoplasm of duodenum Surgical History heart stent 2010 Surgical History stomach ulcer 2017 Surgical History gallbladder 2018 Surgical History whipple 2018 Surgical History colonoscopy 2019 Hospitalization History SEE SURGICAL [facility] 10-12-2023 Nurse Note* Srinivasan See Ma - 04/09/2023 2:56 PM EDT Patient Identification confirmed: yes. Injection given and documented on AUG per provider order. Srinivasan See Ma [facility] History general Narrative - Reported* Type Description Date Medical History BMI 20.0-20.9, adult Medical History Paroxysmal atrial fibrillation Medical History Lumbar pain Medical History Essential hypertension Medical History Tachypnea on examination Medical History Dyspnea on exertion Medical History Anxiety, generalized Medical History Anemia, macrocytic Medical History Elevated LFTs Medical History Fatigue Medical History CAD in comanche artery Medical History Malignant neoplasm of duodenum Surgical History heart stent 2010 Surgical History stomach ulcer 2017 Surgical History gallbladder 2018 Surgical History whipple 2018 Surgical History colonoscopy 2019 Hospitalization History SEE SURGICAL [facility] 10-10-2023 Evaluation note* Encounter Date Diagnosis Assessment Notes Treatment Notes Treatment Clinical Notes Mar, Anxiety, generalized (ICD-10 - F41.1) [facility] 10-02-2023 Miscellaneous Notes* Telephone Encounter - Rola Gordon APRN.CNP - 03/30/2023 4:04 PM EDT The following approved medication requests have been transmitted electronically. Requested Prescriptions Signed Prescriptions Disp Refills folic acid 1 mg tablet 90 tablet 3 Sig: Take 1 tablet by mouth once daily. Authorizing Provider: ROLA GORDON APRN.SPEECH TEACHER [facility]* Encounter Date Diagnosis Assessment Notes Treatment Notes Treatment Clinical Notes Feb, Anxiety disorder, unspecified (ICD-10 - F41.9) [facility] 09-18-2023 Miscellaneous Notes* Telephone Encounter - [...] up based on results. [facility] encounter[facility] Note* Lillian Marinelli MA - 03/11/2023 11:21 AM EDT Patient Identification confirmed: yes. Injection given and documented on AUG per provider order. Lillian Tucker MA documented in this encounter[facility] Instructions* Patient Instructions* Zahra May MD - 03/11/2023 11:09 AM EDT B12 shot today and every 4 weeks. Patient will continue folic acid 1 mg daily as Rx'd. Triage to please call PET/CT results next week Determine follow up based on results. continue following with Dr. Caputo for DMII management. documented in [facility] encounter[facility] History of Present illness Narrative* Zahra May MD - 03/11/2023 10:45 AM EDT Images from the original note were not included. NAME: Rocio Jackson CLINIC NO.: [id number] DATE OF SERVICE: March 11, 2023 (Iftikhar) [...] open wounds. CTCAP done late December in [place] concerning for possible metastatic disease. Updated Visit, [...] with his son Joaquin. Worked at a [employer]. Doing well overall is at his baseline. 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 His PFTs are pending, and he was [...] three times daily with meals.^Disp:90 tablet^Rfl: 1 omgywh-dpstxbtz-wbynput (CREON 24) 24,000-76,000 -120,000 unit delayed release [...] 5 blood transfusions Coronary artery disease involving comanche coronary artery Diabetes mellitus (HCC) 2017 Duodenal cancer (HCC) Dyslipidemia Fatigue Glaucoma Hypertension Myocardial infarction (HCC) 05/15/2011 PTSD (post-traumatic stress disorder) PAST SURGICAL HISTORY Procedure Laterality Date ANGIOPLASTY HX 05/15/2011 2 stents s/p [place];[facility] CHOLECYSTECTOMY 08/11/2017 [facility] COLONOSCOPY PAST SURGICAL HISTORY OF Cardiac Stents [...] which included preparing to see the patient, gyjs-yk-pqct patient care, completing clinical documentation, performing a medically appropriate examination, counseling and educating the patient/family/caregiver, ordering medications, tests, or p rocedures, independently interpreting results (not separately reported), communicating results to the patient/family/caregiver, and care coordination (not separately reported). Zahra May MD, CPE Hematology and Oncology Services Provided at: [place], [place] CC: Dr. David Caputo [address] [place] [phone] documented in this encounter[facility] History of Present illness Narrative* Susan Proctor, [...] 10:00 AM PAGER/CONTACT #: documented in this encounterUniversity [facility] History general Narrative - Reported* Type Description Date Medical History BMI 20.0-20.9, adult Medical History Paroxysmal atrial fibrillation Medical History Lumbar pain Medical History Essential hypertension Medical History Tachypnea on examination Medical History Dyspnea on exertion Medical History Anxiety, generalized Medical History Anemia, macrocytic Medical History Elevated LFTs Medical History Fatigue Medical History CAD in comanche artery Medical History Malignant neoplasm of duodenum Surgical History heart stent 2010 Surgical History stomach ulcer 2016 Surgical History gallbladder 2018 Surgical History whipple 2017 Surgical History colonoscopy 2019 Hospitalization History SEE SURGICAL HX [facility] Other 09-07-2023 History general Narrative - Reported* Type Description Date Medical History BMI 20.0-20.9, adult Medical History Paroxysmal atrial fibrillation Medical History Lumbar pain Medical History Essential hypertension Medical History Tachypnea on examination Medical History Dyspnea on exertion Medical History Anxiety, generalized Medical History Anemia, macrocytic Medical History Elevated LFTs Medical History Fatigue Medical History CAD in comanche artery Medical History Malignant neoplasm of duodenum Surgical History heart stent 2010 Surgical History stomach ulcer 2016 Surgical History gallbladder 2018 Surgical History whipple 2018 Surgical History colonoscopy 2019 Hospitalization History SEE SURGICAL HX [facility] Other 09-07-2023 Evaluation note* Encounter Date Diagnosis Assessment Notes Treatment Notes Treatment Clinical Notes Feb, SIRS (systemic inflammatory response syndrome) (ICD-10 - R65.10) Reviewed hospital notes and discharge summary. Overall improved. Feb, Coronary artery disease involving comanche coronary artery of comanche heart without angina pectoris (ICD-10 - I25.10) Chronic - continue followup w cardio and oncology. Feb, Type 2 diabetes mellitus with hyperglycemia, without long-term current use of insulin (ICD-10 - E11.65) Glucose improved from earlier this summer. Son will call with some readings at home. [facility] Other 09-07-2023 Miscellaneous Notes* Telephone Encounter - Lillian Tucker MA - 03/05/2023 11:34 AM EDT Patient has an appt on 03/11/23. Would you like labs, if so place orders. His PET scan is 03/11/23. Lillian Tucker MA documented in this encounterUniversity Hospitals Conneaut Medical Center08-24-2023 Instructions* Patient Instructions* Zahra May MD - 02/19/2023 4:16 PM EDT B12 shot today and every 4 weeks. Patient will continue folic acid 1 mg daily as Rx'd. PET/CT in 1-2 weeks RTC same day to review images. continue following with Dr. Caputo for DMII management. documented in this encounterUniversity Hospitals Conneaut Medical Center08-24-2023 History of Present illness Narrative* Zahra May MD - 02/19/2023 3:57 PM EDT Images from the original note were not included. NAME: Ventura Rocio CLINIC NO.: [id number] DATE OF SERVICE: February 19, 2023 (Iftikhar) [...] open wounds. CTCAP done late December in [place] concerning for possible metastatic disease. Updated Visit, [...] with his son Joaquin. Worked at a [employer]. Doing well overall is at his baseline. 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 His PFTs are pending, and he was [...] by mouth three times daily with meals. xlmsyo-nlrzkjyh-knnvmly (CREON 24) 24,000-76,000 -120,000 unit delayed release [...] 5 blood transfusions Coronary artery disease involving comanche coronary artery Diabetes mellitus (HCC) 2017 Duodenal cancer (HCC) Dyslipidemia Fatigue Glaucoma Hypertension Myocardial infarction (HCC) 05/15/2011 PTSD (post-traumatic stress disorder) PAST SURGICAL HISTORY Procedure Laterality Date ANGIOPLASTY HX 05/15/2011 2 [place]ents [place] CHOLECYSTECTOMY 08/11/2017 [facility] COLONOSCOPY PAST SURGICAL HISTORY OF Cardiac Stents [...] which included preparing to see the patient, iold-ig-rvmd patient care, completing clinical documentation, performing a medically appropriate examination, counseling and educating the patient/family/caregiver, ordering medications, tests, or p rocedures, and independently interpreting results (not separately reported). Zahra May MD, CPE Hematology and Oncology Services Provided at: [place], [place] CC: Dr. David Caputo [facility] [phone] documented in this encounterUniversity Hospitals Conneaut Medical Center08-22-2023 Miscellaneous Notes* Telephone Encounter - Livier Seay - 02/17/2023 2:14 PM EDT Patient has an appt on 02/19. Would you like labs? documented in this encounterUniversity Hospitals Conneaut Medical Center07-26-2023 Miscellaneous Notes* Telephone Encounter - Susan Jones RN - 01/21/2023 11:11 AM EDT FYI: Pt admitted to [facility] ICU. Presented w/ chest pain and elevated Troponin. 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 Dr Malhotra, Oncologist w/ the [facility] consulted. Copy of pt's last office note faxed to [phone]. Susan Jones RN documented in this encounterUniversity Hospitals Conneaut Medical Center07-19-2023 Evaluation note* Encounter Date Diagnosis Assessment Notes Treatment Notes Treatment Clinical Notes Dec, Anxiety, generalized (ICD-10 - F41.1) [facility] Other 07-19-2023 Miscellaneous Notes* Telephone Encounter - [...] advise. Cassandra Hernandez RN documented in this encounterUniversity Hospitals Conneaut Medical Center07-07-2023 History general Narrative - Reported* Type Description Date Medical History BMI 20.0-20.9, adult Medical History Paroxysmal atrial fibrillation Medical History Lumbar pain Medical History Essential hypertension Medical History Tachypnea on examination Medical History Dyspnea on exertion Medical History Anxiety, generalized Medical History Anemia, macrocytic Medical History Elevated LFTs Medical History Fatigue Medical History CAD in comanche artery Medical History Malignant neoplasm of duodenum Surgical History heart stent 2010 Surgical History stomach ulcer 2017 Surgical History gallbladder 2018 Surgical History whipple 2018 Surgical History colonoscopy 2019 Hospitalization History SEE SURGICAL HX [facility] Other 07-06-2023 Evaluation note* Encounter Date Diagnosis [...] forward this info to for further help. [facility] Other 06-30-2023 Nurse Note* Livier Seay - 12/26/2022 4:03 PM EDT Patient Identification confirmed: yes. Injection given and documented on AUG per provider order. Livier Seay documented in this encounterUniversity Hospitals Conneaut Medical Center06-16-2023 History general Narrative - Reported* Type Description Date Medical History BMI 20.0-20.9, adult Medical History Paroxysmal atrial fibrillation Medical History Lumbar pain Medical History Essential hypertension Medical History Tachypnea on examination Medical History Dyspnea on exertion Medical History Anxiety, generalized Medical History Anemia, macrocytic Medical History Elevated LFTs Medical History Fatigue Medical History CAD in comanche artery Medical History Malignant neoplasm of duodenum Surgical History heart stent 2010 Surgical History stomach ulcer 2016 Surgical History gallbladder 2018 Surgical History whipple 2017 Surgical History colonoscopy 2019 Hospitalization History SEE SURGICAL HX [facility] Other 2023 Evaluation note* Encounter Date Diagnosis Assessment Notes Treatment Notes Treatment Clinical Notes Nov, Anxiety, generalized (ICD-10 - F41.1) Nov, Type 2 diabetes mellitus without complication, without long-term current use of insulin (ICD-10 - E11.9) Samples given from office Janumet - followup in 1 month. [facility] Other 06-02-2023 Nurse Note* Lillian Tucker MA - 11/28/2022 4:02 PM EDT Patient Identification confirmed: yes. Injection given and documented on AUG per provider order. Lillian Tucker MA documented in this encounterUniversity Hospitals Conneaut Medical Center06-02-2023 Instructions* Patient Instructions* Zahra May MD - 11/28/2022 3:42 PM EDT B12 shot today and every 4 weeks. Patient will continue folic acid 1 mg daily as Rx'd. Follow up in 8 weeks for labs and B12. Needs to follow up with Dr. Cpauto regarding blood sugars >400 - please send office the labs result. documented in this encounterUniversity Hospitals Conneaut Medical Center06-02-2023 History of Present illness Narrative* Zahra May MD - 11/28/2022 3:37 PM EDT Images from the original note were not included. NAME: Rocio Jackson CLINIC NO.: [id number] DATE OF SERVICE: November 28, 2022 (Iftikhar) [...] with his son Joaquin. Worked at a [employer]. Doing well overall is at his baseline. 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 His PFTs are pending, and he was [...] the tongue every 5 minutes as needed. 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 Plan: maffpg-ottxuivl-svbvkti (CREON 24) 24,000-76,000 -120,000 unit delayed release capsule PAST MEDICAL HISTORY Diagnosis Date Anemia Anxiety Bleeding ulcer 11/15/2016 required 5 blood transfusions Coronary artery disease involving comanche coronary artery Diabetes mellitus (HCC) 2017 Duodenal cancer (HCC) Dyslipidemia Fatigue Glaucoma Hypertension Myocardial infarction (HCC) 05/15/2011 PTSD (post-traumatic stress disorder) PAST SURGICAL HISTORY Procedure Laterality Date ANGIOPLASTY HX 05/15/2011 2 stents [place];[facility] CHOLECYSTECTOMY 08/11/2017 [facility] COLONOSCOPY PAST SURGICAL HISTORY OF Cardiac Stents [...] which included preparing to see the patient, vkbg-te-caml patient care, completing clinical documentation, performing a medically appropriate examination, counseling and educating the patient/family/caregiver, ordering medications, tests, or p rocedures, and independently interpreting results (not separately reported). Zahra May MD, CPE Hematology and Oncology Services Provided at: [place], [place] CC: Dr. David Caputo [address] [place] [phone] documented in this encounterUniversity Hospitals Conneaut Medical Center06-01-2023 Evaluation note* Encounter Date Diagnosis Assessment Notes Treatment Notes Treatment Clinical Notes Nov, Lumbar pain (ICD-10 - M54.50) [facility] Other 05-26-2023 Evaluation note* Encounter Date Diagnosis Assessment Notes Treatment Notes Treatment Clinical Notes October, Anxiety, generalized (ICD-10 - F41.1) [facility] Other 05-05-2023 Nurse Note* Lillian Tucker MA - 10/31/2022 3:35 PM EDT Patient Identification confirmed: yes. Injection given and documented on MAR per provider order. Lillian Tucker MA documented in this encounterUniversity Hospitals Conneaut Medical Center05-03-2023 Miscellaneous Notes* Telephone Encounter - Rola Gordon APRN.CNP - 10/29/2022 2:43 PM EDT The following approved medication requests have been transmitted electronically. Requested Prescriptions Signed Prescriptions Disp Refills metoclopramide HCl (REGLAN) 10 mg tablet 90 tablet 1 Sig: Take 1 tablet by mouth three times daily with meals. Authorizing Provider: ROLA GORDON APRN.CNP documented in this encounterUniversity Hospitals Conneaut Medical Center05-02-2023 History general Narrative - Reported* Type Description Date Medical History BMI 20.0-20.9, adult Medical History Paroxysmal atrial fibrillation Medical History Lumbar pain Medical History Essential hypertension Medical History Tachypnea on examination Medical History Dyspnea on exertion Medical History Anxiety, generalized Medical History Anemia, macrocytic Medical History Elevated LFTs Medical History Fatigue Medical History CAD in comanche artery Medical History Malignant neoplasm of duodenum Surgical History heart stent 2010 Surgical History stomach ulcer 2017 Surgical History gallbladder 2018 Surgical History whipple 2018 Surgical History colonoscopy 2019 Hospitalization History SEE SURGICAL [facility] Other 04-07-2023 Nurse Note* Livier Seay - 10/03/2022 4:04 PM EDT Patient Identification confirmed: yes . Injection given and documented on MAR per provider order. Livier Seay documented in this encounterUniversity Hospitals Conneaut Medical Center03-10-2023 Nurse Note* Lillian Tucker MA - 09/05/2022 2:16 PM EST Patient Identification confirmed: yes. Injection given and documented on MAR per provider order. Lillian Tucker MA documented in this encounterUniversity Hospitals Conneaut Medical Center02-22-2023 Miscellaneous Notes* Telephone Encounter - Rola Gordon APRN.CNP - 08/20/2022 10:08 AM EST The following approved medication requests have been transmitted electronically. Requested Prescriptions Signed Prescriptions Disp Refills metoclopramide HCl (REGLAN) 10 mg tablet 90 tablet 1 Sig: Take 1 tablet by mouth three times daily with meals. Authorizing Provider: ROLA GORDON APRN.CNP documented in this encounterUniversity Hospitals Conneaut Medical Center02-10-2023 Instructions* Patient Instructions* Zahra May MD - 08/08/2022 3:14 PM EST B12 shot today and every 4 weeks. Patient will continue folic acid 1 mg daily as Rx'd. RTC in 8 weeks for follow-up, labs and B12 See Rola Dee documented in this encounterUniversity Hospitals Conneaut Medical Center02-10-2023 History of Present illness Narrative* Zahra May MD - 08/08/2022 3:00 PM EST Images from the original note were not included. NAME: Rocio Jackson CLINIC NO.: [id number] DATE OF SERVICE: August 08, 2022 (Iftikhar) [...] with his son Joaquin. Worked at a [employer]. Doing well overall is at his baseline. 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 His PFTs are pending, and he was [...] MOUTH THREE TIMES A DAY WITH MEALS vplfta-lbgvpowo-atpgttp (CREON 24) 24,000-76,000 -120,000 unit delayed release [...] 5 blood transfusions Coronary artery disease involving comanche coronary artery Diabetes mellitus (HCC) 2017 Duodenal cancer (HCC) Dyslipidemia Fatigue Glaucoma Hypertension Myocardial infarction (HCC) 05/15/2011 PTSD (post-traumatic stress disorder) PAST SURGICAL HISTORY Procedure Laterality Date ANGIOPLASTY HX 05/15/2011 2 stents [place]p [place];[facility] CHOLECYSTECTOMY 08/11/2017 [facility] COLONOSCOPY PAST SURGICAL HISTORY OF Cardiac Stents x2 [facility]/16/2017 Social History [...] which included preparing to see the patient, rftk-qq-twax patient care, completing clinical documentation, obtaining and/or reviewing separately obtained history, performing a medically appropriate examination, counseling and educating the pat ient/family/caregiver and ordering medications, tests, or procedures. Zahra May MD, CPE [place], [place] CC: David Caputo MD [address] [place] [phone] documented in this encounterUniversity Hospitals Conneaut Medical Center02-10-2023 Miscellaneous Notes* Telephone Encounter - Magalys Cruz RN - 08/08/2022 2:37 PM EST Received call from Paty at [facility] Lab with urgent result: Glucose 501 Magalys Cruz RN documented in this encounterUniversity Hospitals Conneaut Medical Center01-19-2023 Evaluation note* Encounter Date Diagnosis Assessment Notes Treatment Notes Treatment Clinical Notes Jun, CAD in comanche artery (ICD-10 - I25.10) Continue medications as prescribed Jun, Atypical chest pain (ICD-10 - R07.89) Called [facility] message to return my call. Patient has appointment 09/16. Requested moved up appointment and consider testing at their office as I know they would prefer. 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 Continues remission [facility] Other 01-09-2023 Miscellaneous Notes* Telephone Encounter - [...] recurrence.Thanks for calling him documented in this encounterUniversity Hospitals Conneaut Medical Center01-05-2023 Nurse Note* Livier Seay - 07/03/2022 3:01 PM EST Patient Identification confirmed: yes. Injection given and documented on AUG per provider order. Livier Seay documented in this encounterUniversity Hospitals Conneaut Medical Center01-05-2023 Instructions* Patient Instructions* Zahra May MD - 07/03/2022 2:18 PM EST B12 shot today and every [address] results pending today Triage to call results Thursday Patient will continue folic acid 1 mg daily as Rx'd. RTC in 4 weeks for follow-up, labs and B12 See Rola / Leila documented in this [facility]01-05-2023 History of Present illness Narrative* Zahra May MD - 07/03/2022 2:12 PM EST Images from the original note were not included. NAME: Rocio Jackson CLINIC NO.: [id number] DATE OF SERVICE: July 03, 2022 ([facility]) Some elements in this clinic [...] with his son Joaquin. Worked at a [employer]. Doing well overall is at his baseline. 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 His PFTs are pending, and he was [...] MOUTH THREE TIMES A DAY WITH MEALS gmfjdq-vrrqbxuk-hhtgqob (CREON 24) 24,000-76,000 -120,000 unit delayed release [...] 5 blood transfusions Coronary artery disease involving comanche coronary artery Diabetes mellitus (HCC) 2017 Duodenal cancer (HCC) Dyslipidemia Fatigue Glaucoma Hypertension Myocardial infarction (HCC) 05/15/2011 PTSD (post-traumatic stress disorder) PAST SURGICAL HISTORY Procedure Laterality Date ANGIOPLASTY HX 05/15/2011 2 [place]ents [place] CHOLECYSTECTOMY 08/11/2017 [facility] COLONOSCOPY PAST SURGICAL HISTORY OF Cardiac Stents [...] which included preparing to see the patient, hzcp-iy-gdst patient care, completing clinical documentation, obtaining and/or reviewing separately obtained history, performing a medically appropriate examination, counseling and educating the pat ient/family/caregiver and ordering medications, tests, or procedures. Zahra May MD, CPE [place], [place] CC: David Caputo MD [address] [place] [phone] documented in this encounterUniversity Hospitals Conneaut Medical Center01-05-2023 History of Present illness Narrative* [...] contrast PATIENT DISCHARGED TO: Ambulatory patient, left [place] department area. A Diagnostic radioactive procedure has taken place, with no further precautions necessary other than routine body substance precautions. More information regarding radiation safety can be found usingthis link: [email or web address] SIGNATURE: RT Jesus(R) PATIENT NAME: Rocio Jcakson DATE: July 03, 2022 TIME: 12:49 PM PAGER/CONTACT #: documented in this encounterUniversity Hospitals Conneaut Medical Center12-09-2022 History of Present illness Narrative* Sandra Patiño - 06/06/2022 2:34 PM EST Patient Identification confirmed: yes. Injection given and documented on AUG per provider order. Sandra Patiño documented in this encounterUniversity Hospitals Conneaut Medical Center12-09-2022 Instructions* Patient Instructions* Zahra May [...] as scans and labs documented in this encounterUniversity Hospitals Conneaut Medical Center12-09-2022 History of Present illness Narrative* Zahra May MD - 06/06/2022 1:57 PM EST Images from the original note were not included. NAME: Rcoio Jackson CLINIC NO.: [id number] DATE OF SERVICE: June 06, 2022 (Iftikhar) [...] with his son Joaquin. Worked at a [employer]. Doing well overall is at his baseline. 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 His PFTs are pending, and he was [...] MOUTH THREE TIMES A DAY WITH MEALS dtvsqq-idcqfdox-qofwuxl (CREON 24) 24,000-76,000 -120,000 unit delayed release [...] 5 blood transfusions Coronary artery disease involving comanche coronary artery Diabetes mellitus (HCC) 2016 Duodenal cancer (HCC) Dyslipidemia Fatigue Glaucoma Hypertension Myocardial infarction (HCC) 05/15/2011 PTSD (post-traumatic stress disorder) PAST SURGICAL HISTORY Procedure Laterality Date ANGIOPLASTY HX 05/15/2011 2 stents s[place]p [place];[facility] CHOLECYSTECTOMY 08/11/2017 [facility] COLONOSCOPY PAST SURGICAL HISTORY OF Cardiac Stents [...] which included preparing to see the patient, vgys-un-gdbe patient care, completing clinical documentation, obtaining and/or reviewing separately obtained history, performing a medically appropriate examination, counseling and educating the pat ient/family/caregiver and ordering medications, tests, or procedures. Zahra May MD, [facility] [place], [place] CC: David Caputo MD [address] [facility] [phone] documented in this encounterUniversity Hospitals Conneaut Medical Center11-15-2022 NotePROCEDURE: XR HIP LT 2 3V W PELVIS HISTORY: Low back pain ; acute left hip pain since falling one week ago COMPARISON: None. FINDINGS: BONES:No fracture, acute abnormality, or significant arthropathy. SOFT TISSUES:No visible soft tissue swelling. EFFUSION:None visible. OTHER: Negative. IMPRESSION: 1. No acute bone abnormality or significant degenerative joint disease. Electronically authenticated by: REBA Agee: 2022-05-13 07:57[facility]11-10-2022 History of Present illness Narrative* Zahra May MD - 05/08/2022 2:00 PM EST Images from the original note were not included. 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 His PFTs are pending, and he was [...] petechiae. ALLERGIES: ALLERGIES No Known Allergies MEDICATIONS: qujodc-opikssux-kwnkdds (CREON 24) 24,000-76,000 -120,000 unit delayed release [...] 5 blood transfusions Coronary artery disease involving comanche coronary artery Diabetes mellitus (HCC) 2017 Duodenal cancer (HCC) Dyslipidemia Fatigue Glaucoma Hypertension Myocardial infarction (HCC) 05/15/2011 PTSD (post-traumatic stress disorder) PAST SURGICAL HISTORY Procedure Laterality Date ANGIOPLASTY HX 05/15/2011 2 stents [place]p [place];[facility] CHOLECYSTECTOMY 08/11/2017 [facility] COLONOSCOPY PAST SURGICAL HISTORY OF Cardiac Stents [...] which included preparing to see the patient, teii-uz-gmee patient care, completing clinical documentation, obtaining and/or reviewing separately obtained history, performing a medically appropriate examination, counseling and educating the pat ient/family/caregiver and ordering medications, tests, or procedures. Zahra May MD, CPE [facility] [place], [place] CC: David Caputo MD [address] [place] [phone] documented in this encounterUniversity Hospitals Conneaut Medical Center11-10-2022 Instructions* Patient Instructions* Zahra May [...] reticulonodular / inflammatory changes. documented in this encounterUniversity Hospitals Conneaut Medical Center10-13-2022 History of Present illness Narrative* Sofia Crouch RN - 04/10/2022 2:29 PM EDT Spoke with Pharmacy. Monoferric can be ran over 20 minutes and premeds can be omitted today per infusion protocol. Pt had recent infusion with no issues. Sofia Crouch RN documented in this encounterUniversity Hospitals Conneaut Medical Center10-13-2022 Instructions* Patient Instructions* Zahra May MD - [...] reticulonodular / inflammatory changes. documented in this encounterUniversity Hospitals Conneaut Medical Center10-13-2022 History of Present illness Narrative* Zahra May MD - 04/10/2022 1:08 PM EDT Images from the original note were not included. 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 His PFTs are pending, and he was [...] petechiae. ALLERGIES: ALLERGIES No Known Allergies MEDICATIONS: aczizo-uaeabbag-kmjdckm (CREON 24) 24,000-76,000 -120,000 unit delayed release [...] 5 blood transfusions Coronary artery disease involving comanche coronary artery Diabetes mellitus (HCC) 2017 Duodenal cancer (HCC) Dyslipidemia Fatigue Glaucoma Hypertension Myocardial infarction (HCC) 05/15/2011 PTSD (post-traumatic stress disorder) PAST SURGICAL HISTORY Procedure Laterality Date ANGIOPLASTY HX 05/15/2011 2 stents s[place]p [place];[facility] CHOLECYSTECTOMY 08/11/2017 [facility] COLONOSCOPY PAST SURGICAL HISTORY OF Cardiac Stents [...] which included preparing to see the patient, dbmz-sx-omgq patient care, completing clinical documentation, obtaining and/or reviewing separately obtained history, performing a medically appropriate examination, counseling and educating the pat ient/family/caregiver and ordering medications, tests, or procedures. Zahra May MD, CPE [facility] [place], [place] CC: David Caputo MD [facility] [phone] documented in this encounterUniversity Hospitals Conneaut Medical Center10-12-2022 Miscellaneous Notes* Telephone Encounter - Lillian Tucker MA - 04/09/2022 11:43 AM EDT Patient has an appt on 04/10/22. Would you like labs, if so place orders, your orders are for everyother week. Lillian Tucker MA documented in this encounterUniversity Hospitals Conneaut Medical Center09-29-2022 Miscellaneous Notes* Telephone Encounter - Rola Gordon APRN.GRISELDA - 03/27/2022 11:27 AM EDT The following approved medication requests have been transmitted electronically. Requested Prescriptions Signed Prescriptions Disp Refills pvtwqo-pixgqbkv-wasjobq (CREON 24) 24,000-76,000 -120,000 unit delayed release capsule 540 capsule 1 Sig: Take 2 capsules by mouth three times daily with meals. Authorizing Provider: ROLA GORDON APRN.CNP * Telephone Encounter - Imelda Reynolds RPh - 03/27/2022 8:30 AM EDT Patient's insurance plan covers a 90 day supply. 90 day script pending. documented in this encounterUniversity Hospitals Conneaut [facility] Center09-15-2022 Miscellaneous Notes* Telephone Encounter - Rola Gordon APRN.CNP - 03/13/2022 2:25 PM EDT The following approved medication requests have been transmitted electronically. Requested Prescriptions Signed Prescriptions Disp Refills folic acid 1 mg tablet 90 tablet 3 Sig: Take 1 tablet by mouth once daily. Authorizing Provider: ROLA GORDON APRN.CNP documented in this encounterUniversity Hospitals Conneaut Medical Center09-15-2022 History of Present illness Narrative* Rola Gordon APRN.CNP - 03/13/2022 1:00 PM EDT Images from the original note were not included. NAME: Rocio Jackson CLINIC NO.: [id number] DATE OF SERVICE: March 13, 2022 Some [...] 1000 mg today. 3. 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 Will send a new prescription to patient's pharmacy of choice, the [facility] in [place]. 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 His PFTs are pending, and he was [...] by mouth three times daily with meals. pnvzuy-ugiqwbyz-lsnkjqw (CREON 24) 24,000-76,000 -120,000 unit delayed release [...] 5 blood transfusions Coronary artery disease involving comanche coronary artery Diabetes mellitus (HCC) 2017 Duodenal cancer (HCC) Dyslipidemia Fatigue Glaucoma Hypertension Myocardial infarction (HCC) 05/15/2011 PTSD (post-traumatic stress disorder) PAST SURGICAL HISTORY Procedure Laterality Date ANGIOPLASTY HX 05/15/2011 2 stents [place]p [place];[facility] CHOLECYSTECTOMY 08/11/2017 [facility] COLONOSCOPY PAST SURGICAL HISTORY OF Cardiac Stents x2 PAST SURGICAL HISTORY OF 09/2017 [place] PICC LINE INSERT/CONSULT 08/16/2017 Social History Tobacco [...] Age of Onset Cancer Sister Rola Gordon, CONCRETE POURER.[place], [place] CC: Zahra May MD [address] [place] [address] [place] [address] David Caputo MD [address] [place] [phone] I spent a total of 30 minutes on the date of the service which included preparing to see the patient, cjcu-av-jmyw patient care, completing clinical documentation, obtaining and/or reviewing separately obtained history, performing a medically appropriate examination, counseling and educating the pat ient/family/caregiver, ordering medications, tests, or procedures, independently interpreting results (not separately reported), and communicating results to the patient/family/caregiver. documented in this encounterUniversity Hospitals Conneaut Medical Center09-15-2022 Miscellaneous Notes* Telephone Encounter - Fer Pollack [facility] - 03/13/2022 10:51 AM EDT 1st report of treatment-Non oncology regimen (Monoferric) Patient holds Medicare coverage and therefore no FA required. documented in this encounterUniversity Hospitals Conneaut Medical Center09-02-2022 History of Present illness Narrative* TRACI Andrade - 02/28/2022 9:33 AM EDT Patient is listed on the First Time Treatment Report. Patient is scheduled to receive a non-oncology treatment. No psychosocial assessment is indicated. MARINO Andrade documented in this encounterUniversity Hospitals Conneaut Medical Center08-22-2022 Miscellaneous Notes* Telephone Encounter - Cassandra Hernandez RN - 02/17/2022 10:57 AM EDT Pt daughter called to verify the RX reglan had been sent to [facility] [place]. HM sent escript 02/12. I called to verify the RX was rec'd by the pharmacy, and spoke to Too, who verifies they have it ready for the pt. 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 Cassandra Hernandez RN documented in this encounterUniversity Hospitals Conneaut Medical Center08-18-2022 Nurse Note* Livier Seay - 02/13/2022 3:23 PM EDT Patient Identification confirmed: yes. Injection given and documented on AUG per provider order. Livier Seay documented in this encounterUniversity Hospitals Conneaut Medical Center08-18-2022 History of Present illness Narrative* Zahra May MD - 02/13/2022 2:48 PM EDT Images from the original note were not included. 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 His PFTs are pending, and he was [...] by mouth three times daily with meals. hspmuj-prsmsgjm-kegxgxr (CREON 24) 24,000-76,000 -120,000 unit delayed release [...] 5 blood transfusions Coronary artery disease involving comanche coronary artery Diabetes mellitus (HCC) 2017 Duodenal cancer (HCC) Dyslipidemia Fatigue Glaucoma Hypertension Myocardial infarction (HCC) 05/15/2011 PTSD (post-traumatic stress disorder) PAST SURGICAL HISTORY Procedure Laterality Date ANGIOPLASTY HX 05/15/2011 2 stents [place]p [place];[facility] CHOLECYSTECTOMY 08/11/2017 [facility] COLONOSCOPY PAST SURGICAL HISTORY OF Cardiac Stents x2 PAST SURGICAL HISTORY OF 09/2017 [place] PICC LINE INSERT/CONSULT 08/16/2017 Social History Tobacco [...] which included preparing to see the patient, ialh-wt-uufe patient care, completing clinical documentation, obtaining and/or reviewing separately obtained history, performing a medically appropriate examination, counseling and educating the pat ient/family/caregiver and ordering medications, tests, or procedures. Zahra May MD, [place], [place] CC: Zahra May MD [address] [place] [address] [place] [address] David Caputo MD [address] [place] [phone] documented in this encounterUniversity Hospitals Conneaut Medical Center08-17-2022 Miscellaneous Notes* Telephone Encounter - [...] be sent to [facility] in [place]. CHRIS: Order pending. Please review and sign. Magalys Cruz RN documented in this encounterUniversity Hospitals Conneaut Medical Center08-15-2022 Miscellaneous Notes* Telephone Encounter - [...] Thanks Veronica Hall RN documented in this encounterUniversity Hospitals Conneaut Medical Center08-11-2022 History of Present illness Narrative* [...] 06, 2022 1:27 PM documented in this encounterUniversity Hospitals Conneaut Medical Center07-21-2022 Evaluation note* Encounter Date Diagnosis [...] WILL ORDER SOME TESTING AT THIS TIME [facility] Other 06-09-2022 Nurse Note* Srinivasan See Ma - 12/05/2021 3:09 PM EDT Patient unsure of any of his medications and was instructed to bring a list next time he comes. Srinivasan See Melani documented in this encounterUniversity Hospitals Conneaut Medical Center06-09-2022 History of Present illness Narrative* Zahra May MD - 12/05/2021 3:00 PM EDT Images from the original note were not included. 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 His PFTs are pending, and he was [...] mg by mouth twice daily before meals. zmvaer-tvlbcrpf-azseqzw (CREON 24) 24,000-76,000 -120,000 unit cpDR Take [...] CA 19-9 BLD (K31.5) Duodenal obstruction Plan: maytmm-tbuutoin-dgokraf (CREON 24) 24,000-76,000 -120,000 unit delayed release capsule (D50.9) Iron deficiency anemia, unspecified iron deficiency anemia type Plan: orzomg-gcytbken-gtajkbp (CREON 24) 24,000-76,000 -120,000 unit delayed release [...] 5 blood transfusions Coronary artery disease involving comanche coronary artery Diabetes mellitus (HCC) 2017 Duodenal cancer (HCC) Dyslipidemia Fatigue Glaucoma Hypertension Myocardial infarction (HCC) 05/15/2011 PTSD (post-traumatic stress disorder) PAST SURGICAL HISTORY Procedure Laterality Date ANGIOPLASTY HX 05/15/2011 2 stents s[place]p [place];[facility] CHOLECYSTECTOMY 08/11/2017 [facility] COLONOSCOPY PAST SURGICAL HISTORY OF Cardiac Stents [...] which included preparing to see the patient, sqxk-ah-lqhw patient care, completing clinical documentation, obtaining and/or reviewing separately obtained history, performing a medically appropriate examination, counseling and educating the pat ient/family/caregiver and ordering medications, tests, or procedures. Zahra May MD, CPE [facility] [place], [place] CC: Zahra May MD [address] [place] [address] [place] [address] David Caputo MD [address] [place] [phone] documented in this encounterUniversity Hospitals Conneaut Medical Center12-16-2021 Progress note Author Monico Reyez [facility] June 13, 2021 2:01pm Note Date/Time June 13, 2021 2:00pm [facility] [place] [address] Hem/Onc Follow Up Note - OP Signed Patient: Rocio Jackson MR#: [id number] : 1955 Acct:[id number] Age/Sex: 66 / M Type: REG RCR [...] of the ampulla of Vater resected the [facility] number of years ago and then had adjuvant chemotherapy while I was at [facility]. Rocio is a patient well-known to me. 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 He has been followed since that time. Labs recently drawn at [place] and are overall negative except for mild macrocytosis. He appears to be doing overall very well Subjective/ROS - Narrative: No new complaints. [facility] - Medical History Medical History: Medical [...] mg PO DAILY 03/04/19 [History Confirmed 12/13/20] ufvrkq-bivtihfl-ihfkadn 24,000-76,000-120,000 unit capsule,delayed rel (Creon) 1cap PO TID 03/04/19 [History Confirmed 12/13/20] metoprolol succinate 25 mg capsule sprinkle, ext. release 24 hr 25 mg PO DAILY 03/04/19 [History Confirmed 12/13/20] empagliflozin 25 mg tablet (Jardiance) 25 mg PO DAILY 02/28/20 [History Confirmed 12/13/20] dwwjcp-ftsuwvmt-pkvuuic 24,000-76,000-120,000 unit capsule,delayed rel (Creon) 1cap PO [...] for coordination of care (as documented) and fjhp-kp-bttp counseling of patient and/or family. Dictated By: Monico Reyez MD DD/ 1359 Signed By: <Electronically signed by MD Monico Reyez> 06/13/21 1401 [facility] Work Phone: 1(940) 497-937606-17-2021 Progress note Author Monico Reyez [facility] December 13, 2020 3:06pm Note Date/Time December 13, 2020 3:05 pm [facility] [place] [address] Hem/Onc Follow Up Note - OP Signed Patient: Rocio Jackson MR#: [id number] : 1955 Acct:[id number] Age/Sex: 65 / M Type: REG RCR [...] Vater having received adjuvant capecitabine and gemcitabine. [facility] - Medical History Medical History: Medical [...] for coordination of care (as documented) and onts-ud-hutv counseling of patient and/or family. Dictated By: Monico Reyez MD DD/ 1502 Signed By: <Electronically signed by MD Monico Reyez> 12/13/20 1506 [facility] Work Phone: 1([phone]) 940-647012-08-2020 Progress note Author Monico Reyez [facility] June 05, 2020 1:30pm Note Date/Time June 05, 2020 1 :18pm [facility] [place] [address] Hem/Onc Follow Up Note - OP Signed Patient: Rocio Jackson MR#: [id number] : 1955 Acct:[id number] Age/Sex: 64 / M Type: REG RCR [...] Vater having received adjuvant capecitabine and gemcitabine. [facility] - Medical History Medical History: Medical [...] % (Auto) 57.8, Lymph % (Auto) 30.5, [place] % (Auto) 5.8, Eos % (Auto) 5.1, Baso % (Auto) 0.8, Neut # (Auto) 2.9, Lymph # (Auto) 1.5, [place] # (Auto) 0.3, Eos # (Auto) 0.3, [...] for coordination of care (as documented) and nvtn-hf-ywcn counseling of patient and/or family. Dictated By: Monico Reyez MD DD/ 1312 Signed By: <Electronically signed by MD Monico Reyez> 06/05/20 1330 [facility] Work Phone: [phone]) 988-428809-08-2020 Progress note Author Monico Reyez [facility] March 06, 2020 1:51pm Note Date/Time March 06, 2020 1:50pm [facility] [place] [address] Hem/Onc Follow Up Note - OP Signed Patient: Rocio Jackson MR#: [id number] : 1955 Acct:[id number] Age/Sex: 64 / M Type: REG RCR [...] that time. His latest CT scans at [facility] are negative. His biggestcomplaint today is weakness and fatigue. He does appear very pale overall we will check some basic blood work today and I will see him back in follow-up. [facility] - Medical History Medical History: Medical [...] for coordination of care (as documented) and doqn-to-zjhh counseling of patient and/or family. Dictated By: Monico Reyez MD DD/ 1349 Signed By: <Electronically signed by MD Monico Reyez> 03/06/20 3289 [facility] Work Phone: [phone]) 380-599709-01-2020 Progress note Author Monico Reyez [facility] February 28, 2020 2:12pm Note Date/Time February 28, 2020 2:10pm [facility] [place] [address] Hem/Onc Follow Up Note - OP Signed Patient: Rocio Jackson MR#: [id number] : 1955 Acct:[id number] Age/Sex: 64 / M Type: REG RCR [...] that time. His latest CT scans at [facility] are negative. His biggestcomplaint today is weakness and fatigue. He does appear very pale overall we will check some basic blood work today and I will see him back in follow-up. [facility] - Medical History Medical History: Medical [...] % (Auto) 55.0, Lymph % (Auto) 32.7, [place] % (Auto) 9.3, Eos % (Auto) 2.4, Baso % (Auto) 0.6, Neut # (Auto) 3.0, Lymph # (Auto) 1.8, [place] # (Auto) 0.5, Eos # (Auto) 0.1, [...] for coordination of care (as documented) and iblm-yl-enwp counseling of patient and/or family. Dictated By: Monico Reyez MD DD/ 1409 Signed By: <Electronically signed by MD Monico Reyez> 02/28/20 1412 [facility] Work Phone: Evaluation note* Diagnosis Cancer of [...] body of pancreas documented in this encounter [facility] CenterEvaluation note* Diagnosis Macrocytosis- Primary Other [...] deficiency type [facility] Diagnosis Macrocytosis- Primary Other specified diseases of blood and blood-forming organs Abnormal weight loss Loss of weight Adenocarcinoma (HCC) Other malignant neoplasm without specification of site 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 Iron deficiency anemia, unspecified iron deficiency anemia type documented [facility]* Diagnosis Duodenal obstruction Other obstruction of [...] of Vater documented [facility]* Diagnosis Macrocytosis- Primary Other specified diseases of blood and blood-forming organs Abnormal weight loss Loss of weight Adenocarcinoma (HCC) Other malignant neoplasm without specification of site 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 documented [facility] encounter [facility] Diagnosis 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 Interstitial pulmonary disease (HCC) Postinflammatory pulmonary fibrosis Iron deficiency anemia, unspecified iron deficiency anemia type Anemia due to vitamin B12 deficiency, unspecified B12 deficiency type documented in this encounter [facility]* Diagnosis Macrocytosis- Primary Other specified diseases of blood and blood-forming organs Abnormal weight loss Loss of weight Adenocarcinoma (HCC) Other malignant neoplasm without specification of site 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 Anemia due to vitamin B12 deficiency, unspecified B12 deficiency type documented in this encounter [facility]* Diagnosis 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 Anemia due to vitamin B12 deficiency, unspecified B12 deficiency type Anemia due to folic acid deficiency, unspecified deficiency type Macrocytosis Other specified diseases of blood and blood-forming organs documented in this encounter [facility]* Diagnosis Macrocytosis- Primary Other specified diseases of blood and blood-forming organs Anemia due to vitamin B12 deficiency, unspecified B12 deficiency type Anemia due to folic acid deficiency, unspecified deficiency type 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 documented in this encounter [facility] noteNo [facility] [employer] Other Evaluation note* Diagnosis Macrocytosis- Primary Other specified diseases of blood and blood-forming organs Abnormal weight loss Loss of weight Adenocarcinoma (HCC) Other malignant neoplasm without specification of site 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 documented in this encounter [facility]* Diagnosis Macrocytosis- Primary Other specified diseases [...] this encounter [facility] Work Phone: Evaluation note* Diagnosis [...] rectum and anus [facility] this encounter [facility] Diagnosis Iron deficiency anemia, unspecified iron deficiency anemia type History of gastric cancer Rectal bleeding Hemorrhage of rectum and anus [facility] Diagnosis Anemia, unspecified type- Primary [facility] this encounter [facility]* Diagnosis Iron deficiency anemia, unspecified iron deficiency anemia type Duodenal obstruction Other obstruction of duodenum documented in this encounter [facility]* Diagnosis Macrocytosis- Primary Other specified diseases of blood and blood-forming organs Abnormal weight loss Loss of weight Adenocarcinoma (HCC) Other malignant neoplasm without specification of site 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 documented in this encounter [facility]* Diagnosis Iron deficiency anemia secondary to inadequate dietary iron intake- Primary 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 Adenocarcinoma (HCC) Other malignant neoplasm without specification of site Anemia due to vitamin B12 deficiency, unspecified B12 deficiency type Severe protein-calorie malnutrition (HCC) Other severe protein-calorie malnutrition documented in this encounter [facility]* Diagnosis Onset Date Resolution Status Anxiety acute Decreased appetite acute Pancreas cancer acute [facility] Work Phone: Evaluation note* Diagnosis Macrocytosis- Primary Other specified diseases of blood and blood-forming organs Abnormal weight loss Loss of weight Adenocarcinoma (HCC) Other malignant neoplasm without specification of site 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 documented in this encounter [facility]* Diagnosis Arteriosclerosis of carotid [...] mention of psychosis documented in this encounter [facility] Work Phone: Evaluation note* 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) Other malignant neoplasm without specification of site Abnormal weight loss Loss of weight Macrocytosis Other specified diseases of blood and blood-forming organs documented in this encounter [facility]* Diagnosis Onset Date Resolution Status Bilateral impacted cerumen a cute Dyspnea on exertion acute Pancreas cancer acute Seborrhea of face acute Weakness generalized acute Bilateral cervical radiculopathy acute Type II diabetes mellitus ac [place] [facility] Work Phone: Evaluation note* 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) Other malignant neoplasm without specification of site Abnormal weight loss Loss of weight Macrocytosis Other specified diseases of blood and blood-forming organs documented in this encounter [facility]* Diagnosis Iron deficiency anemia secondary to inadequate dietary iron intake- Primary Adenocarcinoma (HCC) Other malignant neoplasm without specification of site 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 Anemia due to vitamin B12 deficiency, unspecified B12 deficiency type [facility] Diagnosis Onset Date Resolution Status Bilateral cervical radiculopathy acute Pancreas cancer acute Type II diabetes mellitus ac [place] Weakness generalized acute Decreased appetite acute Restless leg syndrome acute [facility] Work Phone: Evaluation note* 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) Other malignant neoplasm without specification of site Abnormal weight loss Loss of weight Macrocytosis Other specified diseases of blood and blood-forming organs [facility]* 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) Other malignant neoplasm without specification of site Abnormal weight loss Loss of weight Macrocytosis Other specified diseases of blood and blood-forming organs [facility]* Diagnosis Iron deficiency anemia secondary to inadequate dietary iron intake 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 Anemia due to vitamin B12 deficiency, unspecified B12 deficiency type documented in this encounter [facility]* Diagnosis Cancer of ampulla [...] associated with duodenitis documented [facility] this encounter [facility]* 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 (HCC) Other malignant neoplasm without specification of site Iron deficiency anemia secondary to inadequate dietary iron intake Gastrointestinal hemorrhage associated with duodenitis documented in this encounter [facility] note* 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) Other malignant neoplasm without specification of site Abnormal weight loss Loss of weight Macrocytosis Other specified diseases of blood and blood-forming organs documented in this encounter [facility] note* Diagnosis Small bowel cancer (HCC)- Primary Malignant neoplasm of small intestine, unspecified site Abnormal finding of diagnostic imaging Other nonspecific (abnormal) findings on radiological and other examinations of body structure Leukopenia, unspecified type documented in this encounter [facility] general Narrative - Reported* Type Description Date Surgical History heart stent Surgical History stomach ulcer 2017 Surgical History gallbladder 2018 Surgical History whipple 2018 [facility] Other History general Narrative - Reported* Type Description Date Medical History BMI 20.0-20.9, adult Medical History Paroxysmal atrial fibrillation Medical History Lumbar pain Medical History Essential hypertension Medical History Tachypnea on examination Medical History Dyspnea on exertion Medical History Anxiety, generalized Medical History Anemia, macrocytic Medical History Elevated LFTs Medical History Fatigue Medical History CAD in [place] artery Medical History Malignant neoplasm of duodenum Surgical History heart stent 2010 Surgical History stomach ulcer 2017 Surgical History gallbladder 2018 Surgical History whipple 2018 Surgical History colonoscopy 2020 Hospitalization History SEE SURGICAL HX [employer] Other InstructionsNot on filedocumented in this encounter [employer] SystemInstructionsNot on filedocumented in this encounter [employer] SystemInstructionsNot on filedocumented in this encounter [employer] SystemReason for referral (narrative)* Diagnostic Procedure Only (Routine) - Authorized Specialty Diagnoses / Procedures Referred By Contac t Referred To Contact MOLECULAR & FUNCTIONAL IMAGING Diagnoses Cancer of ampulla of Vater (HCC) Procedures NM PET/CT SKULL-THIGH INITIAL PET IMAGING CT ATTENUATION SKULL BASE MID-THIGH Zhara May MD [address] [place] [address] [place] [address] Molecular & Functional Imaging [address] [place] [address] Referral ID Status Reason Start Date Expiration Date Visits Requested Visits Authorized [id number] Authorized Auto-Generat ed Referral 03/05/2023 03/20/2024 1 1 [facility] for referral (narrative)* Consultation (Routine) - Pending Review Specialty Diagnoses / Procedures Referred By Contac t Referred To Contact Hematology Diagnoses Anemia, unspecified type Rick Zapata DO [address] [place] [address] Gonzales Barnett MD [address] [place] [address] Referral ID Status Reason Start Date Expiration Date Visits Requested Visits Authorized [id number] Pending Review Specialty Services Required 08/10/2023 08/09/2024 1 1 [facility] for referral (narrative)* Consultation (Routine) - Authorized Specialty Diagnoses / Procedures Referred By Contac t Referred To Contact Cardiology Diagnoses Arteriosclerosis of carotid artery, unspecified laterality Procedures Follow Up In Cardiology Irving Abreu DO [address] [facility] 2, [address] [address] Referral ID Status Reason Start Date Expiration Date V isits Requested Visits Authorized [id number] Authorized 10/29/2023 10/28/2024 1 1 [facility] Work Phone: Reason for referral (narrative)* Diagnostic Procedure Only (Routine) - Closed Specialty Diagnoses / Procedures Referred By Contac t Referred To Contact MOLECULAR & FUNCTIONAL IMAGING Diagnoses Cancer of ampulla of Vater (HCC) Procedures NM PET/CT SKULL-THIGH INITIAL PET IMAGING CT ATTENUATION SKULL BASE MID-THIGH Zahra May MD [address] [place] [address] [place] [address] Molecular & Functional Imaging [address] [place] [address] Referral ID Status Reason Start Date Expiration Date V isits Requested Visits Authorized [id number] Closed Auto-Generate d Referral 03/05/2023 03/20/2024 1 1 [facility] for referral (narrative)* Diagnostic Procedure Only [...] SKULL BASE MID-THIGH Zahra May MD [address] [facility] [facility] [place] [address] Molecular & Functional Imaging [address] [place] [address] Referral ID Status Reason Start Date Expiration Date Visits Requested Visits Authorized [id number] Authorized Auto-Generat ed Referral 07/16/2025 1 1 [facility] Summary Purpose Family History No Family [...] Description Status Resuscitation FULL CODE Verified By [facility] Record Only Advance Directive Response Recorded Date/ [...] COMPUTED TOMOGRAPHY THORAX W/CONTRAST Zahra May MD [address] [place] [address] [place] [address] Ct Imaging Referral ID Status Reason Start Date Expiration Date Visits Requested Visits Authorized [id number] Authorized Auto-Generat ed Referral 02/04/2022 01/04/2023 1 1 Specialty Diagnoses / Procedures Referred By Marilee nathan Referred To Contact CT IMAGING Diagnoses Iron deficiency anemia, unspecified iron deficiency anemia type 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) Procedures CT ABD/PEL W IVCON CT ABD & PELVIS W/CONTRAST Zahra May MD [address] [place] [address] [place] [address] Ct Imaging Referral ID Status Reason Start Date Expiration Date Visits Requested Visits Authorized [id number] Authorized Auto-Generat ed Referral 02/04/2022 01/04/2023 1 1 Specialty Diagnoses / Procedures Referred By Contac t Referred To Contact CT IMAGING Diagnoses Interstitial pulmonary disease (HCC) Cancer of ampulla of Vater (HCC) Anemia due to vitamin B12 deficiency, unspecified B12 deficiency type Procedures CT CHEST W IVCON DIAGNOSTIC COMPUTED TOMOGRAPHY THORAX W/CONTRAST Zahra May MD [address] [facility] [place] [address] Ct Imaging Referral ID Status Reason Start Date Expiration Date Visits Requested Visits Authorized [id number] Authorized Auto-Generat ed Referral 07/04/2022 07/06/2023 1 1 Specialty Diagnoses / Procedures Referred By Contac t Referred To Contact CT IMAGING Diagnoses Interstitial pulmonary disease (HCC) Cancer of ampulla of Vater (HCC) Anemia due to vitamin B12 deficiency, unspecified B12 deficiency type Procedures CT ABD/PEL W IVCON CT ABD & PELVIS W/CONTRAST Zahra May MD [address] [place] [address] [place] [address] Ct Imaging Referral ID Status Reason Start Date Expiration Date Visits Requested Visits Authorized [id number] Authorized Auto-Generat ed Referral 07/04/2022 07/06/2023 1 1 Reason *FU 12/08 Last 2 O V and xray results - thank you Diagnosis 1 Lumbar pain (M54.50) Referral Organization [facility] Referring Provider First Name David Referring Provider Last Name Harshal Referring Provider Specialty Family [facility] Referred Organization [facility] Referred Provider Gladis Lopez Referred Address [address], [place],[address] Referred Provider Specialty Pain Medicin e Referral Priority Routine General Notes Dorene Gunter 02:06:36 PM >received today, attachments made, notes locked, referral faxed Clinical Notes F: [id number] Specialty Diagnoses / Procedures Referred By Contac t Referred To Contact CT IMAGING Diagnoses Cancer of ampulla of Vater (HCC) Anemia due to vitamin B12 deficiency, unspecified B12 deficiency type Severe protein-calorie malnutrition (HCC) Procedures CT CHEST W IVCON DIAGNOSTIC COMPUTED TOMOGRAPHY THORAX W/CONTRAST Zahra May MD [address] [facility] [facility] [place] [address] [place] [address] Referral ID Status Reason Start Date Expiration Date Visits Requested Visits Authorized [id number] Authorized Auto-Generat ed Referral 06/29/2023 04/14/2024 1 1 Specialty Diagnoses / Procedures Referred By Contac t Referred To Contact CT IMAGING Diagnoses Cancer of ampulla of Vater (HCC) Anemia due to vitamin B12 deficiency, unspecified B12 deficiency type Severe protein-calorie malnutrition (HCC) Procedures CT ABD/PEL W IVCON CT ABD & PELVIS W/CONTRAST Zahra May MD [address] [place] [address] [place] [address] [place] [address] Referral ID Status Reason Start Date Expiration Date Visits Requested Visits Authorized [id number] Authorized Auto-Generat ed Referral 06/29/2023 04/14/2024 1 1 Specialty Diagnoses / Procedures Referred By Contac t Referred To Contact Diagnoses Iron deficiency anemia, unspecified iron deficiency anemia type History of gastric cancer Rectal bleeding Procedures EGD / Colonoscopy Rick Zapata, [address] [place] [address] Referral ID Status Reason Start Date Expiration Date V isits Requested Visits Authorized [id number] Pending Review 07/17/2023 07/16/2024 1 1 Specialty Diagnoses / Procedures Referred By Contac t Referred To Contact CT IMAGING Diagnoses Iron deficiency anemia secondary to inadequate dietary iron intake Cancer of ampulla of Vater (HCC) Anemia due to vitamin B12 deficiency, unspecified B12 deficiency type Procedures CT CHEST W IVCON DIAGNOSTIC COMPUTED TOMOGRAPHY THORAX W/CONTRAST Zahra May MD [address] [place] [address] [place] [address] [place] [address] Referral ID Status Reason Start Date Expiration Date Visits Requested Visits Authorized [id number] Authorized Auto-Generat ed Referral 03/04/2024 01/01/2025 1 1 Specialty Diagnoses / Procedures Referred By Contac t Referred To Contact CT IMAGING Diagnoses Iron deficiency anemia secondary to inadequate dietary iron intake Cancer of ampulla of Vater (HCC) Anemia due to vitamin B12 deficiency, unspecified B12 deficiency type Procedures CT ABD/PEL W IVCON CT ABD & PELVIS W/CONTRAST Zahra May MD [address] [place] [address] [place] [address] Referral ID Status Reason Start Date Expiration Date Visits Requested Visits Authorized [id number] Authorized Auto-Generat ed Referral 03/04/2024 01/01/2025 1 1 Referral ID Status Reason Start Date Expiration Date V isits Requested Visits Authorized [id number] Closed Auto-Generate d Referral 03/04/2024 01/01/2025 1 1 Referral ID Status Reason Start Date Expiration Date V isits Requested Visits Authorized [id number] Closed Auto-Generate d Referral 03/04/2024 01/01/2025 1 1 Referral ID Status Reason Start Date Expiration Date V isits Requested Visits Authorized [id number] Closed Auto-Generate d Referral 06/29/2023 04/14/2024 1 1 Referral ID Status Reason Start Date Expiration Date V isits Requested Visits Authorized [id number] Closed Auto-Generate d Referral 06/29/2023 04/14/2024 1 1 Specialty Diagnoses / Procedures Referred By Contac t Referred To Contact CT IMAGING Diagnoses Cancer of ampulla of Vater (HCC) Iron deficiency anemia secondary to inadequate dietary iron intake Anemia due to vitamin B12 deficiency, unspecified B12 deficiency type Procedures CT CHEST W IVCON DIAGNOSTIC COMPUTED TOMOGRAPHY THORAX W/CONTRAST Zahra May MD [address] [place] [address] [place] [address] Referral ID Status Reason Start Date Expiration Date Visits Requested Visits Authorized [id number] New Request Auto-Generat ed Referral 04/09/2025 1 1 Specialty Diagnoses / [facility] Diagnoses Cancer of ampulla of Vater (HCC) Iron deficiency anemia secondary to inadequate dietary iron intake Anemia due to vitamin B12 deficiency, unspecified B12 deficiency type Procedures CT ABD/PEL W IVCON CT ABD & PELVIS W/CONTRAST Zahra May MD [address] [facility] [place] [address] [place] [address] Referral ID Status Reason Start Date Expiration Date Visits Requested Visits Authorized [id number] New Request Auto-Generat ed Referral 04/09/2025 1 1 Specialty Diagnoses / Procedures Referred By Contac t Referred To Contact CT IMAGING Diagnoses Interstitial pulmonary disease (HCC) Cancer of ampulla of Vater (HCC) Anemia due to vitamin B12 deficiency, unspecified B12 deficiency type Procedures CT CHEST W IVCON DIAGNOSTIC COMPUTED TOMOGRAPHY THORAX W/CONTRAST Zahra May MD [address] [facility] [facility] [place] [address] [place] [address] Referral ID Status Reason Start Date Expiration Date V isits Requested Visits Authorized [id number] Closed Auto-Generate d Referral 07/04/2022 07/06/2023 1 1 Specialty Diagnoses / Procedures Referred By Contac t Referred To Contact CT IMAGING Diagnoses Interstitial pulmonary disease (HCC) Cancer of ampulla of Vater (HCC) Anemia due to vitamin B12 deficiency, unspecified B12 deficiency type Procedures CT ABD/PEL W IVCON CT ABD & PELVIS W/CONTRAST Zahra May MD [address] [facility] [place] [address] [place] [address] Referral ID Status Reason Start Date Expiration Date V isits Requested Visits Authorized [id number] Closed Auto-Generate d Referral 07/04/2022 07/06/2023 1 1 Specialty Diagnoses / Procedures Referred By Contac t Referred To Contact CT IMAGING Diagnoses Iron deficiency anemia, unspecified iron deficiency anemia type 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) Procedures CT CHEST W IVCON DIAGNOSTIC COMPUTED TOMOGRAPHY THORAX W/CONTRAST Zahra May MD [address] [facility] [place] [address] [place] [address] Referral ID Status Reason Start Date Expiration Date V isits Requested Visits Authorized [id number] Closed Auto-Generate d Referral 02/04/2022 01/04/2023 1 1 Specialty Diagnoses / Procedures Referred By Contac t Referred To Contact CT IMAGING Diagnoses Iron deficiency anemia, unspecified iron deficiency anemia type 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) Procedures CT ABD/PEL W IVCON CT ABD & PELVIS W/CONTRAST Zahra May MD [address] [place], [place] [address] [place] [address] [place] [address] Referral ID Status Reason Start Date Expiration Date V isits Requested Visits Authorized [id number] Closed Auto-Generate d Referral 02/04/2022 01/04/2023 1 1 Specialty Diagnoses / Procedures Referred By Contac t Referred To Contact General Surgery Diagnoses Small bowel cancer (HCC) Abnormal finding of diagnostic imaging Procedures CONSULT TO GENERAL SURGERY OFFICE/OUTPATIENT [facility] 60 MINUTES Zahra May MD [address] [place] [address] [place] [address] Referral ID Status Reason Start Date Expiration Date Visits Requested Visits Authorized [id number] Authorized PCP Requested Referral 07/15/2024 07/15/2025 1 [...] section and content) DATE CREATED AUTHOR 12/17/2017 [facility] DATE CREATED AUTHOR AUTHOR'S ORGANIZ ATION 12/31/2017 [facility] DATE CREATED AUTHOR AUTHOR'S ORGANIZ ATION 07/22/2022 [facility] DATE CREATED AUTHOR AUTHOR'S ORGANIZ ATION 09/17/2022 [employer] DATE CREATED AUTHOR AUTHOR'S ORGANIZ ATION 10/03/2022 [facility] [place] DATE CREATED AUTHOR AUTHOR'S ORGANIZ ATION 08/09/2023 [facility] DATE CREATED AUTHOR AUTHOR'S ORGANIZ ATION 06/02/2024 [facility] DATE CREATED AUTHOR AUTHOR'S ORGANIZ ATION 07/18/2024 [facility] DATE CREATED AUTHOR AUTHOR'S ORGANIZ ATION 07/22/2024 [facility] Comments (unrecognize d section and content) In the event this informatio n is protected by the Federal Confidentiality of Alcohol and Drug Abuse Patient Records regulations: The Federal rules restrict any use of the information to criminally investigate or prosecute any alcohol or drug abuse patient.[facility] the event this information is protected by the Federal Confidentiality of Alcohol and Drug Abuse Patient Records regulations: The Federal rules restrict any use of the information to criminally investigate or prosecute any alcohol or drug abuse patient.[facility] CenterIn the event this information is protected by the Federal Confidentiality of Alcohol and Drug Abuse Patient Records regulations: The Federal rules restrict any use of the information to criminally investigate or prosecute any alcohol or drug abuse patient.[facility] CenterIn the event this information is protected by the Federal Confidentiality of Alcohol and Drug Abuse Patient Records regulations: The Federal rules restrict any use of the information to criminally investigate or prosecute any alcohol or drug abuse patient.[facility] CenterIn the event this information is protected by the Federal Confidentiality of Alcohol and Drug Abuse Patient Records regulations: The Federal rules restrict any use of the information to criminally investigate or prosecute any alcohol or drug abuse patient.[facility] CenterIn the event this information is protected by the Federal Confidentiality of Alcohol and Drug Abuse Patient Records regulations: The Federal rules restrict any use of the information to criminally investigate or prosecute any alcohol or drug abuse patient.[facility] CenterIn the event this information is protected by the Federal Confidentiality of Alcohol and Drug Abuse Patient Records regulations: The Federal rules restrict any use of the information to criminally investigate or prosecute any alcohol or drug abuse patient.[facility] CenterIn the event this information is protected by the Federal Confidentiality of Alcohol and Drug Abuse Patient Records regulations: The Federal rules restrict any use of the information to criminally investigate or prosecute any alcohol or drug abuse patient.[facility] CenterIn the event this information is protected by the Federal Confidentiality of Alcohol and Drug Abuse Patient Records regulations: The Federal rules restrict any use of the information to criminally investigate or prosecute any alcohol or drug abuse patient.[facility] CenterIn the event this information is protected by the Federal Confidentiality of Alcohol and Drug Abuse Patient Records regulations: The Federal rules restrict any use of the information to criminally investigate or prosecute any alcohol or drug abuse patient.[facility] CenterIn the event this information is protected by the Federal Confidentiality of Alcohol and Drug Abuse Patient Records regulations: The Federal rules restrict any use of the information to criminally investigate or prosecute any alcohol or drug abuse patient.[facility] CenterIn the event this information is protected by the Federal Confidentiality of Alcohol and Drug Abuse Patient Records regulations: The Federal rules restrict any use of the information to criminally investigate or prosecute any alcohol or drug abuse patient.[facility] CenterIn the event this information is protected by the Federal Confidentiality of Alcohol and Drug Abuse Patient Records regulations: The Federal rules restrict any use of the information to criminally investigate or prosecute any alcohol or drug abuse patient.[facility] CenterIn the event this information is protected by the Federal Confidentiality of Alcohol and Drug Abuse Patient Records regulations: The Federal rules restrict any use of the information to criminally investigate or prosecute any alcohol or drug abuse patient.[facility] CenterIn the event this information is protected by the Federal Confidentiality of Alcohol and Drug Abuse Patient Records regulations: The Federal rules restrict any use of the information to criminally investigate or prosecute any alcohol or drug abuse patient.[facility] CenterIn the event this information is protected by the Federal Confidentiality of Alcohol and Drug Abuse Patient Records regulations: The Federal rules restrict any use of the information to criminally investigate or prosecute any alcohol or drug abuse patient.[facility] CenterIn the event this information is protected by the Federal Confidentiality of Alcohol and Drug Abuse Patient Records regulations: The Federal rules restrict any use of the information to criminally investigate or prosecute any alcohol or drug abuse patient.[facility] CenterIn the event this information is protected by the Federal Confidentiality of Alcohol and Drug Abuse Patient Records regulations: The Federal rules restrict any use of the information to criminally investigate or prosecute any alcohol or drug abuse patient.[facility] CenterIn the event this information is protected by the Federal Confidentiality of Alcohol and Drug Abuse Patient Records regulations: The Federal rules restrict any use of the information to criminally investigate or prosecute any alcohol or drug abuse patient.[facility] CenterIn the event this information is protected by the Federal Confidentiality of Alcohol and Drug Abuse Patient Records regulations: The Federal rules restrict any use of the information to criminally investigate or prosecute any alcohol or drug abuse patient.[facility] CenterIn the event this information is protected by the Federal Confidentiality of Alcohol and Drug Abuse Patient Records regulations: The Federal rules restrict any use of the information to criminally investigate or prosecute any alcohol or drug abuse patient.[facility] CenterIn the event this information is protected by the Federal Confidentiality of Alcohol and Drug Abuse Patient Records regulations: The Federal rules restrict any use of the information to criminally investigate or prosecute any alcohol or drug abuse patient.[facility] CenterIn the event this information is protected by the Federal Confidentiality of Alcohol and Drug Abuse Patient Records regulations: The Federal rules restrict any use of the information to criminally investigate or prosecute any alcohol or drug abuse patient.[facility] CenterIn the event this information is protected by the Federal Confidentiality of Alcohol and Drug Abuse Patient Records regulations: The Federal rules restrict any use of the information to criminally investigate or prosecute any alcohol or drug abuse patient.[facility] CenterIn the event this information is protected by the Federal Confidentiality of Alcohol and Drug Abuse Patient Records regulations: The Federal rules restrict any use of the information to criminally investigate or prosecute any alcohol or drug abuse patient.[facility] CenterIn the event this information is protected by the Federal Confidentiality of Alcohol and Drug Abuse Patient Records regulations: The Federal rules restrict any use of the information to criminally investigate or prosecute any alcohol or drug abuse patient.[facility] CenterIn the event this information is protected by the Federal Confidentiality of Alcohol and Drug Abuse Patient Records regulations: The Federal rules restrict any use of the information to criminally investigate or prosecute any alcohol or drug abuse patient.[facility] CenterIn the event this information is protected by the Federal Confidentiality of Alcohol and Drug Abuse Patient Records regulations: The Federal rules restrict any use of the information to criminally investigate or prosecute any alcohol or drug abuse patient.[facility] CenterIn the event this information is protected by the Federal Confidentiality of Alcohol and Drug Abuse Patient Records regulations: The Federal rules restrict any use of the information to criminally investigate or prosecute any alcohol or drug abuse patient.[facility] CenterIn the event this information is protected by the Federal Confidentiality of Alcohol and Drug Abuse Patient Records regulations: The Federal rules restrict any use of the information to criminally investigate or prosecute any alcohol or drug abuse patient.[facility] CenterIn the event this information is protected by the Federal Confidentiality of Alcohol and Drug Abuse Patient Records regulations: The Federal rules restrict any use of the information to criminally investigate or prosecute any alcohol or drug abuse patient.[facility] CenterIn the event this information is protected by the Federal Confidentiality of Alcohol and Drug Abuse Patient Records regulations: The Federal rules restrict any use of the information to criminally investigate or prosecute any alcohol or drug abuse patient.[facility] CenterIn the event this information is protected by the Federal Confidentiality of Alcohol and Drug Abuse Patient Records regulations: The Federal rules restrict any use of the information to criminally investigate or prosecute any alcohol or drug abuse patient.[facility] CenterIn the event this information is protected by the Federal Confidentiality of Alcohol and Drug Abuse Patient Records regulations: The Federal rules restrict any use of the information to criminally investigate or prosecute any alcohol or drug abuse patient.[facility] CenterIn the event this information is protected by the Federal Confidentiality of Alcohol and Drug Abuse Patient Records regulations: The Federal rules restrict any use of the information to criminally investigate or prosecute any alcohol or drug abuse patient.[facility] CenterIn the event this information is protected by the Federal Confidentiality of Alcohol and Drug Abuse Patient Records regulations: The Federal rules restrict any use of the information to criminally investigate or prosecute any alcohol or drug abuse patient.[facility] CenterIn the event this information is protected by the Federal Confidentiality of Alcohol and Drug Abuse Patient Records regulations: The Federal rules restrict any use of the information to criminally investigate or prosecute any alcohol or drug abuse patient.[facility] CenterIn the event this information is protected by the Federal Confidentiality of Alcohol and Drug Abuse Patient Records regulations: The Federal rules restrict any use of the information to criminally investigate or prosecute any alcohol or drug abuse patient.[facility] CenterIn the event this information is protected by the Federal Confidentiality of Alcohol and Drug Abuse Patient Records regulations: The Federal rules restrict any use of the information to criminally investigate or prosecute any alcohol or drug abuse patient.[facility] CenterIn the event this information is protected by the Federal Confidentiality of Alcohol and Drug Abuse Patient Records regulations: The Federal rules restrict any use of the information to criminally investigate or prosecute any alcohol or drug abuse patient.[facility] CenterIn the event this information is protected by the Federal Confidentiality of Alcohol and Drug Abuse Patient Records regulations: The Federal rules restrict any use of the information to criminally investigate or prosecute any alcohol or drug abuse patient.[facility] CenterIn the event this information is protected by the Federal Confidentiality of Alcohol and Drug Abuse Patient Records regulations: The Federal rules restrict any use of the information to criminally investigate or prosecute any alcohol or drug abuse patient.[facility] CenterIn the event this information is protected by the Federal Confidentiality of Alcohol and Drug Abuse Patient Records regulations: The Federal rules restrict any use of the information to criminally investigate or prosecute any alcohol or drug abuse patient.[facility] the event this information is protected by the Federal Confidentiality of Alcohol and Drug Abuse Patient Records regulations: The Federal rules restrict any use of the information to criminally investigate or prosecute any alcohol or drug abuse patient.[facility] CenterIn the event this information is protected by the Federal Confidentiality of Alcohol and Drug Abuse Patient Records regulations: The Federal rules restrict any use of the information to criminally investigate or prosecute any alcohol or drug abuse patient.[facility] CenterIn the event this information is [...] or prosecute any alcohol or drug abuse patient.[facility] CenterIn the event this information is protected by the Federal Confidentiality of Alcohol and Drug Abuse Patient Records regulations: The Federal rules restrict any use of the information to criminally investigate or prosecute any alcohol or drug abuse patient.[facility] CenterIn the event this information is protected by the Federal Confidentiality of Alcohol and Drug Abuse Patient Records regulations: The Federal rules restrict any use of the information to criminally investigate or prosecute any alcohol or drug abuse patient.[facility] CenterIn the event this information is protected by the Federal Confidentiality of Alcohol and Drug Abuse Patient Records regulations: The Federal rules restrict any use of the information to criminally investigate or prosecute any alcohol or drug abuse patient.[facility] CenterIn the event this information is protected by the Federal Confidentiality of Alcohol and Drug Abuse Patient Records regulations: The Federal rules restrict any use of the information to criminally investigate or prosecute any alcohol or drug abuse patient.[facility] CenterIn the event this information is protected by the Federal Confidentiality of Alcohol and Drug Abuse Patient Records regulations: The Federal rules restrict any use of the information to criminally investigate or prosecute any alcohol or drug abuse patient.[facility] CenterIn the event this information is protected by the Federal Confidentiality of Alcohol and Drug Abuse Patient Records regulations: The Federal rules restrict any use of the information to criminally investigate or prosecute any alcohol or drug abuse patient.[facility] CenterIn the event this information is protected by the Federal Confidentiality of Alcohol and Drug Abuse Patient Records regulations: The Federal rules restrict any use of the information to criminally investigate or prosecute any alcohol or drug abuse patient.[facility] CenterIn the event this information is protected by the Federal Confidentiality of Alcohol and Drug Abuse Patient Records regulations: The Federal rules restrict any use of the information to criminally investigate or prosecute any alcohol or drug abuse patient.[facility] CenterIn the event this information is protected by the Federal Confidentiality of Alcohol and Drug Abuse Patient Records regulations: The Federal rules restrict any use of the information to criminally investigate or prosecute any alcohol or drug abuse patient.[facility] CenterIn the event this information is protected by the Federal Confidentiality of Alcohol and Drug Abuse Patient Records regulations: The Federal rules restrict any use of the information to criminally investigate or prosecute any alcohol or drug abuse patient.[facility] CenterIn the event this information is protected by the Federal Confidentiality of Alcohol and Drug Abuse Patient Records regulations: The Federal rules restrict any use of the information to criminally investigate or prosecute any alcohol or drug abuse patient.[facility] CenterIn the event this information is protected by the Federal Confidentiality of Alcohol and Drug Abuse Patient Records regulations: The Federal rules restrict any use of the information to criminally investigate or prosecute any alcohol or drug abuse patient.[facility] CenterIn the event this information is protected by the Federal Confidentiality of Alcohol and Drug Abuse Patient Records regulations: The Federal rules restrict any use of the information to criminally investigate or prosecute any alcohol or drug abuse patient.[facility] CenterIn the event this information is protected by the Federal Confidentiality of Alcohol and Drug Abuse Patient Records regulations: The Federal rules restrict any use of the information to criminally investigate or prosecute any alcohol or drug abuse patient.[facility] CenterIn the event this information is protected by the Federal Confidentiality of Alcohol and Drug Abuse Patient Records regulations: The Federal rules restrict any use of the information to criminally investigate or prosecute any alcohol or drug abuse patient.[facility] CenterIn the event this information is protected by the Federal Confidentiality of Alcohol and Drug Abuse Patient Records regulations: The Federal rules restrict any use of the information to criminally investigate or prosecute any alcohol or drug abuse patient.[facility] CenterIn the event this information is protected by the Federal Confidentiality of Alcohol and Drug Abuse Patient Records regulations: The Federal rules restrict any use of the information to criminally investigate or prosecute any alcohol or drug abuse patient.[facility] CenterIn the event this information is protected by the Federal Confidentiality of Alcohol and Drug Abuse Patient Records regulations: The Federal rules restrict any use of the information to criminally investigate or prosecute any alcohol or drug abuse patient.[facility] CenterIn the event this information is protected by the Federal Confidentiality of Alcohol and Drug Abuse Patient Records regulations: The Federal rules restrict any use of the information to criminally investigate or prosecute any alcohol or drug abuse patient.[facility] CenterIn the event this information is protected by the Federal Confidentiality of Alcohol and Drug Abuse Patient Records regulations: The Federal rules restrict any use of the information to criminally investigate or prosecute any alcohol or drug abuse patient.[facility] CenterIn the event this information is protected by the Federal Confidentiality of Alcohol and Drug Abuse Patient Records regulations: The Federal rules restrict any use of the information to criminally investigate or prosecute any alcohol or drug abuse patient.[facility] CenterIn the event this information is protected by the Federal Confidentiality of Alcohol and Drug Abuse Patient Records regulations: The Federal rules restrict any use of the information to criminally investigate or prosecute any alcohol or drug abuse patient.[facility] CenterIn the event this information is protected by the Federal Confidentiality of Alcohol and Drug Abuse Patient Records regulations: The Federal rules restrict any use of the information to criminally investigate or prosecute any alcohol or drug abuse patient.[facility] CenterIn the event this information is protected by the Federal Confidentiality of Alcohol and Drug Abuse Patient Records regulations: The Federal rules restrict any use of the information to criminally investigate or prosecute any alcohol or drug abuse patient.[facility] CenterIn the event this information is protected by the Federal Confidentiality of Alcohol and Drug Abuse Patient Records regulations: The Federal rules restrict any use of the information to criminally investigate or prosecute any alcohol or drug abuse patient.[facility] CenterIn the event this information is protected by the Federal Confidentiality of Alcohol and Drug Abuse Patient Records regulations: The Federal rules restrict any use of the information to criminally investigate or prosecute any alcohol or drug abuse patient.[facility] CenterIn the event this information is protected by the Federal Confidentiality of Alcohol and Drug Abuse Patient Records regulations: The Federal rules restrict any use of the information to criminally investigate or prosecute any alcohol or drug abuse patient.[facility] CenterIn the event this information is protected by the Federal Confidentiality of Alcohol and Drug Abuse Patient Records regulations: The Federal rules restrict any use of the information to criminally investigate or prosecute any alcohol or drug abuse patient.[facility] CenterIn the event this information is protected by the Federal Confidentiality of Alcohol and Drug Abuse Patient Records regulations: The Federal rules restrict any use of the information to criminally investigate or prosecute any alcohol or drug abuse patient.[facility] CenterIn the event this information is protected by the Federal Confidentiality of Alcohol and Drug Abuse Patient Records regulations: The Federal rules restrict any use of the information to criminally investigate or prosecute any alcohol or drug abuse patient.[facility] CenterIn the event this information is protected by the Federal Confidentiality of Alcohol and Drug Abuse Patient Records regulations: The Federal rules restrict any use of the information to criminally investigate or prosecute any alcohol or drug abuse patient.[facility] CenterIn the event this information is protected by the Federal Confidentiality of Alcohol and Drug Abuse Patient Records regulations: The Federal rules restrict any use of the information to criminally investigate or prosecute any alcohol or drug abuse patient.[facility] CenterIn the event this information is protected by the Federal Confidentiality of Alcohol and Drug Abuse Patient Records regulations: The Federal rules restrict any use of the information to criminally investigate or prosecute any alcohol or drug abuse patient.[facility] Care Teams (unrecognized sec tion [...] November 27, 2023 End: November 27, 2023 Engineering Model Maker Relationship Specialty Start Date End Date David Caputo MD [address] [facility] [place] [address] PCP - General Family Practice 12/13/19 Aamir Segura DO Physician Hematology/Oncology 07/13/19 Rola Gordon, CONCRETE POURER.SPEECH TEACHER [address] [place] [address] Nurse Practitioner Hematology/Oncology 07/13/19 Engineering Model Maker Relationship Specialty Start Date End Date David Caputo MD [address] [facility] [place] [address] PCP - General Family Practice 12/13/19 Aamir Segura DO Physician Hematology/Oncology 07/13/19 Rola Gordon, CONCRETE POURER.SPEECH TEACHER [address] [place] [address] Nurse Practitioner Hematology/Oncology 07/13/19 Engineering Model Maker Relationship Specialty Start Date End Date David Caputo MD [address] [facility] [place] [address] PCP - General Family Practice 12/13/19 Aamir Segura, DO Physician Hematology/Oncology 07/13/19 Rola Gordon, CONCRETE POURER.SPEECH TEACHER [address] [place] [address] Nurse Practitioner Hematology/Oncology 07/13/19 Engineering Model Maker Relationship Specialty Start Date End Date David Caputo MD [address] [place] [address] PCP - General Family Practice 12/13/19 Aamir Segura DO Physician Hematology/Oncology 07/13/19 Rola Gordon, CONCRETE POURER.SPEECH TEACHER [address] [facility] [place] [address] Nurse Practitioner Hematology/Oncology 07/13/19 Engineering Model Maker Relationship Specialty Start Date End Date David Caputo MD [address] [place] [address] PCP - General Family Practice 12/13/19 Aamir Segura DO Physician Hematology/Oncology 07/13/19 Rola Gordon, CONCRETE POURER.SPEECH TEACHER [address] [facility] [address] [place] [address] Nurse Practitioner Hematology/Oncology 07/13/19 Engineering Model Maker Relationship Specialty Start Date End Date David Caputo MD [address] [facility] [place] [address] PCP - General Family Practice 12/13/19 Aamir Segura DO Physician Hematology/Oncology 07/13/19 Rola Gordon, CONCRETE POURER.SPEECH TEACHER [address] [facility] [place] [address] Nurse Practitioner Hematology/Oncology 07/13/19 Engineering Model Maker Relationship Specialty Start Date End Date David Caputo MD [address] [facility] [place] [address] PCP - General Family Practice 12/13/19 Aamir Segura DO Physician Hematology/Oncology 07/13/19 Rola Gordon, CONCRETE POURER.SPEECH TEACHER [address] [facility] [place] [address] Nurse Practitioner Hematology/Oncology 07/13/19 Engineering Model Maker Relationship Specialty Start Date End Date David Caputo MD [address] [facility] [place] [address] PCP - General Family Practice 12/13/19 Aamir Segura DO Physician Hematology/Oncology 07/13/19 Rola Gordon, CONCRETE POURER.SPEECH TEACHER [address] [facility] [place] [address] Nurse Practitioner Hematology/Oncology 07/13/19 Engineering Model Maker Relationship Specialty Start Date End Date David Caputo MD [address] [facility] [place] [address] PCP - General Family Practice 12/13/19 Aamir Segura DO Physician Hematology/Oncology 07/13/19 Rola Gordon, CONCRETE POURER.SPEECH TEACHER [address] [facility] [address] [address] [address] [place], [place] [id number] Nurse Practitioner Hematology/Oncology 07/13/19 Engineering Model Maker Relationship Specialty Start Date End Date David Caputo MD [address] [facility] [place] [address] PCP - General Family Practice 12/13/19 Aamir Segura DO Physician Hematology/Oncology 07/13/19 Rola Gordon, CONCRETE POURER.SPEECH TEACHER [address] [facility] [place] [address] Nurse Practitioner Hematology/Oncology 07/13/19 Engineering Model Maker Relationship Specialty Start Date End Date David Caputo MD [address] [facility] [place] [address] PCP - General Family Practice 12/13/19 Aamir Segura DO Physician Hematology/Oncology 07/13/19 Rola Gordon, CONCRETE POURER.SPEECH TEACHER [address] [facility] [place] [address] Nurse Practitioner Hematology/Oncology 07/13/19 Engineering Model Maker Relationship Specialty Start Date End Date David Caputo MD [address] [facility] [place] [address] PCP - General Family Medicine 12/13/19 Aamir Segura DO Physician Hematology/Oncology 07/13/19 Rola Gordon, CONCRETE POURER.SPEECH TEACHER [address] [facility] [place] [address] Nurse Practitioner Hematology/Oncology 07/13/19 Engineering Model Maker Relationship Specialty Start Date End Date David Caputo MD [address] [facility] [place] [address] PCP - General Family Medicine 12/13/19 Aamir Segura DO Physician Hematology/Oncology 07/13/19 Rola Gordon, CONCRETE POURER.SPEECH TEACHER [address] [facility] [place] [address] Nurse Practitioner Hematology/Oncology 07/13/19 Engineering Model Maker Relationship Specialty Start Date End Date David Caputo MD [address] [place] [address] PCP - General Family Medicine 12/13/19 Aamir Segura DO Physician Hematology/Oncology 07/13/19 Rola Gordon, CONCRETE POURER.SPEECH TEACHER [address] [facility] [place] [address] Nurse Practitioner Hematology/Oncology 07/13/19 Engineering Model Maker Relationship Specialty Start Date End Date David Caputo MD [address] [facility] [place] [address] PCP - General Family Medicine 12/13/19 Aamir Segura DO Physician Hematology/Oncology 07/13/19 Rola Gordon, CONCRETE POURER.SPEECH TEACHER [address] [facility] [place] [address] Nurse Practitioner Hematology/Oncology 07/13/19 Engineering Model Maker Relationship Specialty Start Date End Date David Caputo MD [address] [facility] [place] [address] PCP - General Family Medicine 12/13/19 Aamir Segura DO Physician Hematology/Oncology 07/13/19 Rola Gordon, CONCRETE POURER.[facility] [address] [facility] [address] [place], [place] [id number] Nurse Practitioner Hematology/Oncology 07/13/19 Engineering Model Maker Relationship Specialty Start Date End Date David Caputo MD [address] [place] [address] PCP - General Family Medicine 12/13/19 Aamir Segura, Physician Hematology/Oncology 07/13/19 Rola Gordon, CONCRETE POURER.SPEECH TEACHER [address] [facility] [place] [address] Nurse Practitioner Hematology/Oncology 07/13/19 Engineering Model Maker Relationship Specialty Start Date End Date David Caputo MD [address] [place] [address] PCP - General Family Medicine 12/13/19 Aamir Segura, Physician Hematology/Oncology 07/13/19 Rola Gordon, CONCRETE POURER.SPEECH TEACHER [address] [facility] [place] [address] Nurse Practitioner Hematology/Oncology 07/13/19 Engineering Model Maker Relationship Specialty Start Date End Date David Caputo MD [address] [facility] [place] [address] PCP - General Family Medicine 12/13/19 Aamir Segura DO Physician Hematology/Oncology 07/13/19 Rola Gordon, CONCRETE POURER.SPEECH TEACHER [address] [facility] [place] [address] Nurse Practitioner Hematology/Oncology 07/13/19 Engineering Model Maker Relationship Specialty Start Date End Date David Caputo MD [address] [facility] [place] [id number] PCP - General Family Medicine 12/13/19 Aamir Segura DO Physician Hematology/Oncology 07/13/19 Rola Gordon, CONCRETE POURER.SPEECH TEACHER [address] [facility] [place] [address] Nurse Practitioner Hematology/Oncology 07/13/19 Engineering Model Maker Relationship Specialty Start Date End Date David Caputo MD [address] [facility] [place] [address] PCP - General Family Medicine 12/13/19 Aamir Segura DO Physician Hematology/Oncology 07/13/19 Rola Gordon, CONCRETE POURER.SPEECH TEACHER [address] [facility] [place] [address] Nurse Practitioner Hematology/Oncology 07/13/19 Engineering Model Maker Relationship Specialty Start Date End Date David Caputo MD [address] [place] [address] PCP - General Family Medicine 12/13/19 Aamir Segura DO Physician Hematology/Oncology 07/13/19 Rola Gordon, CONCRETE POURER.SPEECH TEACHER [address] [facility] [place] [address] Nurse Practitioner Hematology/Oncology 07/13/19 Engineering Model Maker Relationship Specialty Start Date End Date David Caputo MD [address] [facility] [place] [address] PCP - General Family Medicine 12/13/19 Aamir Segura DO Physician Hematology/Oncology 07/13/19 Rola Gordon, CONCRETE POURER.SPEECH TEACHER [address] [facility] [place] [address] Nurse Practitioner Hematology/Oncology 07/13/19 Engineering Model Maker Relationship Specialty Start Date End Date David Caputo MD [address] [facility] [place] [address] PCP - General Family Medicine 12/13/19 Aamir Segura DO Physician Hematology/Oncology 07/13/19 Rola Gordon, CONCRETE POURER.SPEECH TEACHER [address] [facility] [place] [address] Nurse Practitioner Hematology/Oncology 07/13/19 Engineering Model Maker Relationship Specialty Start Date End Date David Caputo MD [address] [facility] [place] [address] PCP - General Family Medicine 12/13/19 Aamir Segura DO Physician Hematology/Oncology 07/13/19 Rola Gordon, CONCRETE POURER.SPEECH TEACHER [address] [facility] [place] [address] Nurse Practitioner Hematology/Oncology 07/13/19 Engineering Model Maker Relationship Specialty Start Date End Date David Caputo MD [address] [facility] [place] [address] PCP - General Family Medicine 12/13/19 Aamir Segura DO Physician Hematology/Oncology 07/13/19 Rola Gordon, CONCRETE POURER.SPEECH TEACHER [address] [facility] [place] [address] Nurse Practitioner Hematology/Oncology 07/13/19 Engineering Model Maker Relationship Specialty Start Date End Date David Caputo MD [address] [facility] [place] [address] PCP - General Family Medicine 12/13/19 Aamir Segura DO Physician Hematology/Oncology 07/13/19 Rola Gordon, CONCRETE POURER.SPEECH TEACHER [address] [facility] [facility] [place] [address] Nurse Practitioner Hematology/Oncology 07/13/19 Team Status: Inactive Member Role Status Dates David Caputo MD Primary Care Provider Active Adriane Espitia MD Attending Provider Active Engineering Model Maker Relationship Specialty Start Date End Date David Caputo MD [address] [facility] [place] [address] PCP - General Family Medicine 12/13/19 Aamir Segura DO Physician Hematology/Oncology 07/13/19 Rola Gordon, CONCRETE POURER.SPEECH TEACHER [address] [facility] [facility] [place] [address] Nurse Practitioner Hematology/Oncology 07/13/19 Engineering Model Maker Relationship Specialty Start Date End Date David Caputo MD [address] [facility] [place] [phone] PCP - General Family Medicine 12/13/19 Aamir Segura DO Physician Hematology/Oncology 07/13/19 Rola Gordon, CONCRETE POURER.SPEECH TEACHER [address] [facility] [place] [address] Nurse Practitioner Hematology/Oncology 07/13/19 Engineering Model Maker Relationship Specialty Start Date End Date David Caputo MD [address] [facility] [place] [address] PCP - General Family Medicine 12/13/19 Aamir Segura DO Physician Hematology/Oncology 07/13/19 Rola Gordon, CONCRETE POURER.SPEECH TEACHER [address] [facility] [facility] [place] [address] Nurse Practitioner Hematology/Oncology 07/13/19 Engineering Model Maker Relationship Specialty Start Date End Date David Caputo MD [address] [facility] [place] [address] PCP - General Family Medicine 12/13/19 Aamir Segura DO Physician Hematology/Oncology 07/13/19 Rola Gordon, CONCRETE POURER.SPEECH TEACHER [address] [facility] [place] [address] Nurse Practitioner Hematology/Oncology 07/13/19 Engineering Model Maker Relationship Specialty Start Date End Date David Caputo MD [address] [facility] [place] [address] PCP - General Family Medicine 12/13/19 Aamir Segura DO Physician Hematology/Oncology 07/13/19 Rola Gordon, CONCRETE POURER.SPEECH TEACHER [address] [facility] [facility] [place] [address] Nurse Practitioner Hematology/Oncology 07/13/19 Engineering Model Maker Relationship Specialty Start Date End Date David Caputo MD [address] [facility] [place] [address] PCP - General Family Medicine 12/13/19 Aamir Segura DO Physician Hematology/Oncology 07/13/19 Rola Gordon, CONCRETE POURER.SPEECH TEACHER [address] [facility] [place] [address] Nurse Practitioner Hematology/Oncology 07/13/19 Engineering Model Maker Relationship Specialty Start Date End Date David Caputo MD [address] [facility] [place] [address] PCP - General Family Medicine 12/13/19 Aamir Segura DO Physician Hematology/Oncology 07/13/19 Rola Gordon, CONCRETE POURER.SPEECH TEACHER [address] [facility] [facility] [place] [address] Nurse Practitioner Hematology/Oncology 07/13/19 Engineering Model Maker Relationship Specialty Start Date End Date David Caputo MD [address] [place] [id number] PCP - General Family Medicine 07/16/23 Team Status: Inactive Member Role Status Dates David Caputo MD Attending Provider Active St art: June 04, 2023 End: June 04, 2023 Team Status: Inactive Member Role Status Dates Rick Zapata DO Attending Provider Active Start: August 05, 2023 End: August 05, 2023 Engineering Model Maker Relationship Specialty Start Date End Date David Caputo MD [address] [place] [address] PCP - General Family Medicine 07/16/23 Engineering Model Maker Relationship Specialty Start Date End Date David Caputo MD [address] [place] [address] PCP - General Family Medicine 07/16/23 Engineering Model Maker Relationship Specialty Start Date End Date David Caputo MD [address] [place] [address] PCP - General Family Medicine 12/13/19 Aamir Segura DO Physician Hematology/Oncology 07/13/19 Rola Gordon APRN.SPEECH TEACHER [address] [place] [address] [place] [address] Nurse Practitioner Hematology/Oncology 07/13/19 Engineering Model Maker Relationship Specialty Start Date End Date David Caputo MD [address] [place] [address] PCP - General Family Medicine 12/13/19 Aamir Segura DO Physician Hematology/Oncology 07/13/19 Rola Gordon, CONCRETE POURER.SPEECH TEACHER [address] [facility] [place] [address] Nurse Practitioner Hematology/Oncology 07/13/19 Engineering Model Maker Relationship Specialty Start Date End Date David Caputo MD [address] [facility] [place] [address] PCP - General Family Medicine 12/13/19 Aamir Segura DO Physician Hematology/Oncology 07/13/19 Rola Gordon, CONCRETE POURER.SPEECH TEACHER [address] [facility] [place] [address] Nurse Practitioner Hematology/Oncology 07/13/19 Engineering Model Maker Relationship Specialty Start Date End Date David Caputo MD [address] [facility] [place] [address] PCP - General Family Medicine 12/13/19 Aamir Segura DO Physician Hematology/Oncology 07/13/19 Rola Gordon, CONCRETE POURER.SPEECH TEACHER [address] [facility] [place] [address] Nurse Practitioner Hematology/Oncology 07/13/19 Engineering Model Maker Relationship Specialty Start Date End Date David Caputo MD [address] [place] [phone] PCP - General Family Medicine 12/13/19 Aamir Segura DO Physician Hematology/Oncology 07/13/19 Rola Gordon, CONCRETE POURER.SPEECH TEACHER [address] [facility] [place] [address] Nurse Practitioner Hematology/Oncology 07/13/19 Team Status: Inactive Member Role Status Dates David Caputo MD Primary Care Provide r, Attending Provider Active Start: August 27, 2023 End: August 27, 2023 Engineering Model Maker Relationship Specialty Start Date End Date Daivd Caputo MD [address] [place] [phone] PCP - General Family Medicine 12/13/19 Aamir Segura DO Physician Hematology/Oncology 07/13/19 Rola Gordon, CONCRETE POURER.SPEECH TEACHER [address] [facility] [place] [address] Nurse Practitioner Hematology/Oncology 07/13/19 Engineering Model Maker Relationship Specialty Start Date End Date David Caputo MD PCP - General 06/29/99 Engineering Model Maker Relationship Specialty Start Date End Date David Caputo MD [address] [place] [phone] PCP - General Family Medicine 12/13/19 Aamir Segura DO Physician Hematology/Oncology 07/13/19 Rola Gordon, CONCRETE POURER.SPEECH TEACHER [address] [facility] [place] [address] Nurse Practitioner Hematology/Oncology 07/13/19 Team Status: Active Member Role Status Dates David Caputo MD Primary Care Provide r, Attending Provider Active Start: December 03, 2023 Team Status: Inactive Member Role Status Dates David Caputo MD Primary Care Provide r, Attending Provider Active Start: December 24, 2023 End: December 24, 2023 Engineering Model Maker Relationship Specialty Start Date End Date David Caputo MD [address] [place] [address] PCP - General Family Medicine 12/13/19 Aamir Segura DO Physician Hematology/Oncology 07/13/19 Rola Gordon, CONCRETE POURER.SPEECH TEACHER [address] [facility] [place] [address] Nurse Practitioner Hematology/Oncology 07/13/19 Engineering Model Maker Relationship Specialty Start Date End Date David Caputo MD [address] [place] [phone] PCP - General Family Medicine 12/13/19 Aamir Segura DO Physician Hematology/Oncology 07/13/19 Rola Gordon, ELVIRA.SPEECH TEACHER [address] [facility] [place] [address] Nurse Practitioner Hematology/Oncology 07/13/19 Engineering Model Maker Relationship Specialty Start Date End Date David Caputo MD [address] [facility] [place] [address] PCP - General Family Medicine 12/13/19 Aamir Segura DO Physician Hematology/Oncology 07/13/19 Rola Gordon, CONCRETE POURER.SPEECH TEACHER [address] [facility] [place] [address] Nurse Practitioner Hematology/Oncology 07/13/19 Engineering Model Maker Relationship Specialty Start Date End Date David Caputo MD [address] [facility] [place] [phone] PCP - General Family Medicine 12/13/19 Aamir Segura DO Physician Hematology/Oncology 07/13/19 Rola Gordon, CONCRETE POURER.SPEECH TEACHER [address] [facility] [place] [address] Nurse Practitioner Hematology/Oncology 07/13/19 Engineering Model Maker Relationship Specialty Start Date End Date David Caputo MD [address] [facility] [place] [address] PCP - General Family Medicine 12/13/19 Aamir Segura DO Physician Hematology/Oncology 07/13/19 Rola Gordon, CONCRETE POURER.SPEECH TEACHER [address] [facility] [place] [address] Nurse Practitioner Hematology/Oncology 07/13/19 Engineering Model Maker Relationship Specialty Start Date End Date David Caputo MD [address] [facility] [place] [phone] PCP - General Family Medicine 12/13/19 Aamir Segura DO Physician Hematology/Oncology 07/13/19 Rola Gordon, CONCRETE POURER.SPEECH TEACHER [address] [facility] [place] [address] Nurse Practitioner Hematology/Oncology 07/13/19 Engineering Model Maker Relationship Specialty Start Date End Date David Caputo MD [address] [facility] [place] [address] PCP - General Family Medicine 12/13/19 Aamir Segura DO Physician Hematology/Oncology 07/13/19 Rola Gordon, CONCRETE POURER.SPEECH TEACHER [address] [facility] [place] [address] Nurse Practitioner Hematology/Oncology 07/13/19 Engineering Model Maker Relationship Specialty Start Date End Date David Caputo MD [address] [facility] [place] [address] PCP - General Family Medicine 12/13/19 Aamir Segura DO Physician Hematology/Oncology 07/13/19 Rola Gordon, CONCRETE POURER.SPEECH TEACHER [address] [facility] [place] [address] Nurse Practitioner Hematology/Oncology 07/13/19 Engineering Model Maker Relationship Specialty Start Date End Date David Caputo MD [address] [facility] [place] [address] PCP - General Family Medicine 12/13/19 Aamir Segura DO Physician Hematology/Oncology 07/13/19 Rola Gordon, CONCRETE POURER.SPEECH TEACHER [address] [facility] [place] [address] Nurse Practitioner Hematology/Oncology 07/13/19 Engineering Model Maker Relationship Specialty Start Date End Date David Caputo MD [address] [facility] [place] [address] PCP - General Family Medicine 12/13/19 Aamir Segura DO Physician Hematology/Oncology 07/13/19 Rola Gordon, CONCRETE POURER.SPEECH TEACHER [address] [facility] [place] [address] Nurse Practitioner Hematology/Oncology 07/13/19 Engineering Model Maker Relationship Specialty Start Date End Date David Caputo MD [address] [facility] [place] [address] PCP - General Family Medicine 12/13/19 Aamir Segura DO Physician Hematology/Oncology 07/13/19 Rola Gordon, CONCRETE POURER.SPEECH TEACHER [address] [facility] [address] [place], [place] [phone] Nurse Practitioner Hematology/Oncology 07/13/19 Team Status: Active [...] May 06, 2024 End: May 06, 2024 Engineering Model Maker Relationship Specialty Start Date End Date David Caputo MD [address] [facility] [place] [address] PCP - General Family Medicine 12/13/19 Aamir Segura DO Physician Hematology/Oncology 07/13/19 Rola Gordon, CONCRETE POURER.SPEECH TEACHER [address] [facility] [place] [address] Nurse Practitioner Hematology/Oncology 07/13/19 Engineering Model Maker Relationship Specialty Start Date End Date David Caputo MD [address] [facility] [place] [address] PCP - General Family Medicine 12/13/19 Aamir Segura DO Physician Hematology/Oncology 07/13/19 Rola Gordon, CONCRETE POURER.SPEECH TEACHER [address] [facility] [place] [address] Nurse Practitioner Hematology/Oncology 07/13/19 Engineering Model Maker Relationship Specialty Start Date End Date David Caputo MD [address] [facility] [place] [address] PCP - General Family Medicine 12/13/19 Aamir Segura DO Physician Hematology/Oncology 07/13/19 Rola Gordon, CONCRETE POURER.SPEECH TEACHER [address] [facility] [place] [address] Nurse Practitioner Hematology/Oncology 07/13/19 Engineering Model Maker Relationship Specialty Start Date End Date David Caputo MD [address] [facility] [place] [phone] PCP - General Family Medicine 12/13/19 Aamir Segura DO Physician Hematology/Oncology 07/13/19 Rola Gordon, CONCRETE POURER.SPEECH TEACHER [address] [facility] [place] [address] Nurse Practitioner Hematology/Oncology 07/13/19 Engineering Model Maker Relationship Specialty Start Date End Date David Caputo MD [address] [facility] [place] [address] PCP - General Family Medicine 12/13/19 Rola Gordon, CONCRETE POURER.SPEECH TEACHER [address] [facility] [place] [address] Nurse Practitioner Hematology/Oncology 07/13/19 Zahra May MD [address] [facility] [place] [address] Hematology/Oncology 07/15/24 Engineering Model Maker Relationship Specialty Start Date End Date David Caputo MD [address] [facility] [place] [address] PCP - General Family Medicine 12/13/19 Rola Gordon APRN.SPEECH TEACHER [address] [facility] [place] [address] Nurse Practitioner Hematology/Oncology 07/13/19 Zahra May MD [address] [facility] [place] [address] Hematology/Oncology 07/15/24 Reason for Visit (unrecogniz ed [...] deficiency anemia type Zahra May MD [address] [facility] [place] [address] Zelalem Treat Zhane Mc [address] [facility] [place] [address] Referral ID Status Reason Start Date Expiration Date V isits Requested Visits Authorized [id number] Authorized 03/08/2022 06/06/2022 99 99 Reason Onset [...] CT Specialty Diagnoses / Procedures [facility] IMAGING Diagnoses Iron deficiency anemia secondary to inadequate dietary iron intake Cancer of ampulla of Vater (HCC) Anemia due to vitamin B12 deficiency, unspecified B12 deficiency type Procedures CT ABD/PEL W IVCON CT ABD & PELVIS W/CONTRAST Zahra May MD [address] [place] [address] [place] [address] [place] [address] Referral ID Status Reason Start Date Expiration Date V isits Requested Visits Authorized [id number] Closed Auto-Generate d Referral 03/04/2024 01/01/2025 1 1 Reason Comments Radiology NM Specialty Diagnoses / Procedures [facility] To [facility] CT IMAGING Diagnoses Cancer of ampulla of Vater (HCC) Anemia due to vitamin B12 deficiency, unspecified B12 deficiency type Severe protein-calorie malnutrition (HCC) Procedures CT ABD/PEL W IVCON CT ABD & PELVIS W/CONTRAST Zahra May MD [address] [place] [address] [place] [address] [place] [address] Referral ID Status Reason Start Date Expiration Date V isits Requested Visits Authorized [id number] Closed Auto-Generate d Referral 06/29/2023 04/14/2024 1 1 Reason Comments Radiology NM Specialty Diagnoses / Procedures [facility] Referred To Contact MOLECULAR & FUNCTIONAL IMAGING Diagnoses Cancer of ampulla of Vater (HCC) Procedures NM PET/CT SKULL-THIGH INITIAL PET IMAGING CT ATTENUATION SKULL BASE MID-THIGH Zahra May MD [address] [place] [address] [place] [address] Molecular & Functional Imaging [address] [place] [address] Referral ID Status Reason Start Date Expiration Date V isits Requested Visits Authorized [id number] Closed Auto-Generate d Referral 03/05/2023 03/20/2024 1 1 Specialty Diagnoses / Procedures Referred By [facility] t Referred To Contact CT IMAGING Diagnoses Interstitial pulmonary disease (HCC) Cancer of ampulla of Vater (HCC) Anemia due to vitamin B12 deficiency, unspecified B12 deficiency type Procedures CT CHEST W IVCON DIAGNOSTIC COMPUTED TOMOGRAPHY THORAX W/CONTRAST Zahra May MD [address] [place] [address] [place] [address] [place] [address] Referral ID Status Reason Start Date Expiration Date V isits Requested Visits Authorized [id number] Closed Auto-Generate d Referral 07/04/2022 07/06/2023 1 1 Specialty Diagnoses / Procedures Referred By [facility] t Referred To Contact CT IMAGING Diagnoses Iron deficiency anemia, unspecified iron deficiency anemia type 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) Procedures CT CHEST W IVCON DIAGNOSTIC COMPUTED TOMOGRAPHY THORAX W/CONTRAST Zahra May MD [address] [place] [address] [place] [address] [place] [address] Referral ID Status Reason Start Date Expiration Date V isits Requested Visits Authorized [id number] Closed Auto-Generate d Referral 02/04/2022 01/04/2023 1 [...] ABD & PELVIS W/CONTRAST Zahra May MD [address] [place] [address] [place] [address] [place] [address] Referral ID Status Reason Start Date Expiration Date V isits Requested Visits Authorized [id number] Closed Auto-Generate d Referral 06/09/2024 04/09/2025 1 [...] ATTENUATION SKULL BASE MID-THIGH Zahra May MD [address] [place] [address] [place] [address] Molecular & Functional Imaging [address] [place] [address] Referral ID Status Reason Start Date Expiration Date V isits Requested Visits Authorized [id number] Closed Auto-Generate d Referral 06/16/2024 07/16/2025 1 [...] BE BASED ON THE PRIMARY CLINICAL RECORDS. [facility]. provides no warranty or guarantee of the accuracy or completeness of information in this document.
--- NOTE | 2024-07-23 12:27 | ED_ITS ---
HPI HPI - General Adult General Chief complaint: Altered Mental Status Stated complaint: LOW BLOOD SUGAR, WEAKNESS Time Seen by Provider: 07/23/24 12:15 Source: family Mode of arrival: Wheelchair Limitations: altered mental status History of Present Illness HPI narrative: The patient was brought over for evaluation with suspected low blood sugar. According to the patient's daughter, the patient was supposed to get outpatient blood testing to evaluate his blood count to see if he had a need for blood transfusion. He is currently being taken care of through gastroenterology at [facility] in [place]. He apparently went to get blood drawn yesterday but they were unable to access him for some reason. He got sent home but had been fasting in anticipation of this test. According to the daughter, he ate dinner last night and took his regularly prescribed medication for his diabetes -he takes the pill Janumet twice a day. She said that he took his pill this morning but did not eat because once again, the patient was supposed to obtain fasting blood testing. Rather than drive back out to [place], the daughter asked if the patient could get blood testing closer to home and so she came to the [facility] to get the blood drawn. She said that she checked his blood sugar before they left the house and the reading was 42. She did not want to give him anything at home because she was afraid it would affect the blood testing. When he came to the hospital to get his blood drawn, he started to become confused and his responses decreased. By the time he is brought over to the emergency department he was unresponsive. Related Data Home Medications ?Medication ?Instructions ?Recorded ?Confirmed atorvastatin 40 mg tablet 20 mg PO QPM 12/22/22 07/23/24 fluoxetine 20 mg capsule 20 mg PO DAILY 12/22/22 07/23/24 folic acid 1 mg tablet 1 mg PO DAILY 12/22/22 07/23/24 uokgel-sueyglvp-cnzsjcl 2 cap PO TID 12/22/22 07/23/24 24,000-76,000-120,000 unit capsule,delayed rel (Creon) metoclopramide HCl 10 mg tablet 10 mg PO TID 12/22/22 05/27/24 metoprolol succinate 25 mg capsule 25 mg PO DAILY 12/22/22 07/23/24 sprinkle, ext. release 24 hr sitagliptin phosphate 50 1 tab PO BID 12/22/22 07/23/24 mg-metformin 1,000 mg tablet (Janumet) baclofen 10 mg tablet 5 mg PO TID PRN muscle spasm 01/19/23 07/23/24 mirtazapine 15 mg tablet 30 mg PO .QHS PRN Not Specified 01/19/23 07/23/24 apixaban 2.5 mg tablet (Eliquis) 2.5 mg PO BID 05/27/24 07/23/24 atorvastatin 20 mg tablet 20 mg PO DAILY 05/27/24 07/23/24 buspirone 10 mg tablet 10 mg PO BID 05/27/24 05/27/24 docusate sodium 100 mg capsule 100 mg PO DAILY 05/27/24 05/27/24 omeprazole 20 mg capsule,delayed 20 mg PO DAILY 05/27/24 05/27/24 release ropinirole 1 mg tablet 1 mg PO DAILY 05/27/24 05/27/24 pantoprazole 40 mg tablet,delayed 40 mg PO DAILY 07/23/24 07/23/24 release Previous Rx's ?Medication ?Instructions ?Recorded alprazolam 0.25 mg tablet 0.25 mg PO TID PRN anxiety 5 days 07/19/23 #15 tabs baclofen 10 mg tablet 10 mg PO TID PRN muscle spasm #90 06/16/24 tabs Allergies Allergy/AdvReac Type Severity Reaction Status Date / Time No Known Drug Allergies Allergy Verified 07/23/24 12:26 Opioid HPI Opioid Management Most Recent Opioid Data: Last Pain Scale 4 07/19/23 13:00 07/19/23 Last Pain Intensity 0 01/22/23 10:03 01/22/23 Ur Phencyclidine Scrn Negative (NEGATIVE) 01/19/23 16:40 07/2 10/19 [facility] Medical History (Updated 07/23/24 @ 13:02 by Richar Rowan) Moderate protein-calorie malnutrition ?E44.0 - Moderate protein-calorie malnutrition (ICD-10) Type 2 diabetes mellitus with hyperglycemia ?E11.65 - Type 2 diabetes mellitus with hyperglycemia (ICD-10) Anemia due to blood loss, chronic ?D50.0 - Iron deficiency anemia secondary to blood loss (chronic) (ICD-10) Paroxysmal atrial fibrillation ?I48.0 - Paroxysmal atrial fibrillation (ICD-10) Chronic HFrEF (heart failure with reduced ejection fraction) ?I50.22 - Chronic systolic (congestive) heart failure (ICD-10) H/O malignant neoplasm of stomach ?Z85.028 - Personal history of other malignant neoplasm of stomach (ICD-10) CAD (coronary artery disease) ?I25.10 - Atherosclerotic heart disease of [place] coronary artery without angina pectoris (ICD-10) Severe protein-calorie malnutrition ?E43 - Unspecified severe protein-calorie malnutrition (ICD-10) Anemia ?D64.9 - Anemia, unspecified (ICD-10) Low back pain ?M54.50 - Low back pain, unspecified (ICD-10) Myalgia ?M79.10 - Myalgia, unspecified site (ICD-10) Chronic pain syndrome ?G89.4 - Chronic pain syndrome (ICD-10) Abnormal CT of the abdomen ?R93.5 - Abnormal findings on diagnostic imaging of other abdominal regions, including retroperitoneum (ICD-10) Malnutrition ?E46 - Unspecified protein-calorie malnutrition (ICD-10) Afib ?I48.91 - Unspecified atrial fibrillation (ICD-10) Depression with anxiety ?F41.8 - Other specified anxiety disorders (ICD-10) Anemia ?D64.9 - Anemia, unspecified (ICD-10) Type 2 diabetes mellitus ?E11.9 - Type 2 diabetes mellitus without complications (ICD-10) Carotid artery calcification ?I65.29 - Occlusion and stenosis of unspecified carotid artery (ICD-10) CHF (congestive heart failure) ?I50.9 - Heart failure, unspecified (ICD-10) Cardiomyopathy ?I42.9 - Cardiomyopathy, unspecified (ICD-10) Anxiety ?F41.9 - Anxiety disorder, unspecified (ICD-10) Myocardial infarct ?I21.9 - Acute myocardial infarction, unspecified (ICD-10) Stomach cancer ?C16.9 - Malignant neoplasm of stomach, unspecified (ICD-10) Surgical History 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) ?Z90.49 - Acquired absence of other specified parts of digestive tract (ICD- 10) History of coronary artery stent placement ?Z95.5 - Presence of coronary angioplasty implant and graft (ICD-10) Family History Father Family history of COPD (chronic obstructive pulmonary disease) Family history of CHF (congestive heart failure) Mother Family history of diabetes mellitus Social History Within the past year, how often did you have a drink containing alcohol: monthly or less Within the past year, how many standard drinks containing alcohol did you have on a typical day: 1 or 2 Within the past year, how often did you have six or more drinks on one occasion: never Total score: 0 Score interpretation: A score less than 4 is consistent with normal alcohol consumption. 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 Known occupational exposures/hazards: Yes Known occupational exposures/hazards details: dust Highest level of school completed/degree received: 12th grade, no diploma Are you now , , , , never or living with a partner: In a typical week, how many times do you talk on the telephone with family, friends, or neighbors: 3 or more times per week How often do you get together with friends or relatives: 3 or more times per week How often do you attend christianity or restorationism services: never Do you belong to any clubs or organizations such as christianity groups unions, fraternal or athletic groups, or school groups: no Total score: 1 Score interpretation: A score of less than or equal to 1 indicates the most socially isolated. Little interest or pleasure in doing things: several days Feeling down, depressed, or hopeless: several days Feel stressed/tense/nervous/anxious/difficulty sleeping: not at all Due to disability, difficulty making decisions: No Exam Narrative Exam Narrative: Nurses notes and vital signs reviewed and patient is not hypoxic. afebrile General: Unresponsive, cachectic appearing male Skin: Warm, dry, no pallor noted. Numerous areas of ecchymosis on the patient's extremities including some on the torso Head: Normocephalic, atraumatic. Eye: Pupils are equal, round and EOMI. No scleral icterus. Ears, Nose, Mouth, and Throat: Oral mucosa is dry Cardiovascular: Tachycardia. Respiratory: No accessory muscle use or respiratory distress. Lungs are clear to auscultation, no wheezing, rales or rhonchi Chest Wall: Sign of injury Musculoskeletal: Numerous areas of ecchymosis but no sign of long bone fracture GI: Abdomen is soft, non-distended. Normal bowel sounds. No masses appreciated. Patient does not react when the abdomen is palpated. Neurological: Unresponsive Constitutional Vital Signs, click to edit/add: Last Vital Signs Pulse 78 07/23/24 15:30 Resp 22 H 07/23/24 15:30 BP 96/45 L 07/23/24 15:30 Pulse Ox 99 07/23/24 15:37 O2 Del Method Room Air 07/23/24 15:37 Course Vital Signs Vital signs: Vital Signs Pulse Rate 120 H 07/23/24 12:15 Respiratory Rate 12 07/23/24 12:15 Blood Pressure 71/58 L 07/23/24 12:15 Pulse Oximetry 95 07/23/24 12:15 Pulse Rate 78 07/23/24 15:30 Respiratory Rate 22 H 07/23/24 15:30 Blood Pressure 96/45 L 07/23/24 15:30 Pulse Oximetry 99 07/23/24 15:37 Oxygen Delivery Method Room Air 07/23/24 15:37 Medical Decision Making MDM Narrative Medical decision making narrative: The patient was given IM glucagon and then peripheral IV was established and he was given IV dextrose. Blood was also drawn and sent for testing. I called to the lab. The patient's lab requisition was for a CBC. It is not clear why they would want him to have a fasting blood draw for this test. Patient's responses immediately increased after he received the IV dextrose. He was able to answer questions regarding his name although he was still little bit confused. Blood pressure improved after dextrose administration. He was also given a liter of normal saline IV fluid Patient's blood sugar improved after him to be awake and alert and able to take fluid and fluid orally. He was given orange juice and chocolate milk. His blood sugar increased to over 200. His testing revealed leukopenia (WBC 1.3) and anemia with a hemoglobin of 4.1 and hematocrit of 13.1. He has previously required blood transfusion, which is the reason why they had sent him to the hospital to get blood testing. I ordered him to receive 2 units of packed red blood cells via transfusion. Verbal and written consent for blood transfusion was obtained. The lab called back when all of his tests came back abnormal. We had a fresh drawn and they reread the blood tests and determined that the previous results were erroneous. As a result we canceled the transfusion and fortunately the blood was not thawed. Actual hemoglobin 10.8, platelets 198. Normal electrolytes. CO2 and BUN were low and elevated, respectively. The patient's blood pressure was decreased therefore he received a liter of normal saline IV fluid. It still was on the lower side so we will give another 1000 mL normal saline IV fluid. His blood pressure increased to 96/45. The patient family told me this is a normal blood pressure for him. He is perfusing appropriately and without any complaint at this time. He passed stool but it was not bloody just a little bit of diarrhea mixed with formed stool. The patient was discharged home with instructions to resume normal diet Lab Data Lab results reviewed: Yes I reviewed the patient's lab results Labs: Lab Results 07/23/24 07/23/24 07/23/24 Range/Units 12:17 12:30 12:31 WBC 3.8 L (4.0-11.0) 10^3/uL RBC 3.16 L (4.70-6.10) 10^6/uL Hgb 10.8 L (14.0-18.0) g/dL Hct 32.6 L (42.0-54.0) % MCV 103.2 H (80.0-94.0) fL MCH 34.2 H (25.9-34.0) pg MCHC 33.1 (29.9-35.2) g/dL RDW 16.1 H (11.0-15.0) % Plt Count 198 (150-450) 10^3/uL MPV 8.9 L (9.5-13.5) fL Seg Neuts % (Manual) 80.0 H (43.0-75.0) Lymphocytes % (Manual) 19.0 L (20.5-60.0) % Monocytes % (Manual) 2.0 (1.7-12.0) % Eosinophils % (Manual) 0.0 L (0.9-7.0) % Basophils % (Manual) 0.0 L (0.2-2.0) % Neutrophils # (Manual) 3.04 (1.4-6.5) 10^3/uL Lymphocytes # (Manual) 0.72 L (1.20-3.80) 10^3/uL Monocytes # (Manual) 0.07 L (0.30-0.80) 10^3/uL Eosinophils # (Manual) 0.00 (0.00-0.70) 10^3/uL Basophils # (Manual) 0.00 (0.00-0.10) 10^3/uL Sodium 136 (136-145) mmol/L Potassium 4.0 (3.5-5.1) mmol/L Chloride 104 (98-107) mmol/L Carbon Dioxide 20.3 L (21.0-32.0) mmol/L Anion Gap 15.7 BUN 35.0 H (7.0-18.0) mg/dL Creatinine 0.88 (0.70-1.30) mg/dL Est GFR ( Amer) >60 (>=60 mL/min/1.73m^2) Est GFR (Non-Af Amer) >60 (>=60 mL/min/1.73m^2) BUN/Creatinine Ratio 39.8 Glucose 161 H (74-106) mg/dL Calcium 7.4 L (8.5-10.1) mg/dL Total Bilirubin 0.4 (0.2-1.0) mg/dL AST 16 (15-37) U/L ALT 13 L (16-63) U/L Alkaline Phosphatase 98 (46-116) U/L Total Protein 4.9 L (6.4-8.2) g/dL Albumin 1.7 L (3.4-5.0) g/dL Globulin 3.2 g/dL Albumin/Globulin Ratio 0.5 POC Glucose 52 L 205 H (74-106) mg/dL 07/23/24 07/23/24 07/23/24 Range/Units 12:44 13:23 15:35 WBC (4.0-11.0) 10^3/uL RBC (4.70-6.10) 10^6/uL Hgb (14.0-18.0) g/dL Hct (42.0-54.0) % MCV (80.0-94.0) fL MCH (25.9-34.0) pg MCHC (29.9-35.2) g/dL RDW (11.0-15.0) % Plt Count (150-450) 10^3/uL MPV (9.5-13.5) fL Seg Neuts % (Manual) (43.0-75.0) Lymphocytes % (Manual) (20.5-60.0) % Monocytes % (Manual) (1.7-12.0) % Eosinophils % (Manual) (0.9-7.0) % Basophils % (Manual) (0.2-2.0) % Neutrophils # (Manual) (1.4-6.5) 10^3/uL Lymphocytes # (Manual) (1.20-3.80) 10^3/uL Monocytes # (Manual) (0.30-0.80) 10^3/uL Eosinophils # (Manual) (0.00-0.70) 10^3/uL Basophils # (Manual) (0.00-0.10) 10^3/uL Sodium (136-145) mmol/L Potassium (3.5-5.1) mmol/L Chloride (98-107) mmol/L Carbon Dioxide (21.0-32.0) mmol/L Anion Gap BUN (7.0-18.0) mg/dL Creatinine (0.70-1.30) mg/dL Est GFR ( Amer) (>=60 mL/min/1.73m^2) Est GFR (Non-Af Amer) (>=60 mL/min/1.73m^2) BUN/Creatinine Ratio Glucose (74-106) mg/dL Calcium (8.5-10.1) mg/dL Total Bilirubin (0.2-1.0) mg/dL AST (15-37) U/L ALT (16-63) U/L Alkaline Phosphatase (46-116) U/L Total Protein (6.4-8.2) g/dL Albumin (3.4-5.0) g/dL Globulin g/dL Albumin/Globulin Ratio POC Glucose 177 H 172 H 150 H (74-106) mg/dL Discharge Plan Discharge Chief Complaint: Altered Mental Status Clinical Impression: Hypoglycemia, Anemia requiring transfusions Patient Disposition: Home, Self-Care Time of Disposition Decision: 13:02 Prescriptions / Home Meds: No Action baclofen 10 mg tablet 5 mg PO TID PRN (Reason: muscle spasm) Rx Instructions: PER RETAIL FILL HX - LAST FILLED 01/12/23 #30 TABS FOR A 30 DAY SUPPLY mirtazapine 15 mg tablet 30 mg PO .QHS PRN (Reason: Not Specified) Rx Instructions: PER RETAIL FILL HX - LAST FILLED 01/01/23 #30 FOR 30 DAY SUPPLY baclofen 10 mg tablet 10 mg PO TID PRN (Reason: muscle spasm) Qty: 90 2RF Eliquis 2.5 mg tablet 2.5 mg PO BID omeprazole 20 mg capsule,delayed release(DR/EC) 20 mg PO DAILY ropinirole 1 mg tablet 1 mg PO DAILY atorvastatin 20 mg tablet 20 mg PO DAILY docusate sodium 100 mg capsule 100 mg PO DAILY buspirone 10 mg tablet 10 mg PO BID Creon 24,000-76,000 -120,000 unit capsule,delayed release(DR/EC) 2 cap PO TID Rx Instructions: administer with meals and/or snacks metoclopramide HCl 10 mg tablet 10 mg PO TID Janumet 50-1,000 mg tablet 1 tab PO BID atorvastatin 40 mg tablet 20 mg PO QPM metoprolol succinate 25 mg capsule,sprinkle,ER 24hr 25 mg PO DAILY folic acid 1 mg tablet 1 mg PO DAILY fluoxetine 20 mg capsule 20 mg PO DAILY alprazolam 0.25 mg tablet 0.25 mg PO TID PRN (Reason: anxiety) 5 Days Qty: 15 0RF pantoprazole 40 mg tablet,delayed release (DR/EC) 40 mg PO DAILY Print Language: Lao Instructions: What to Do if Your Blood Sugar is Low (ED) Referrals: Carrie Caputo MD [Primary Care Provider] - 1 week
[2024-07-23 12:32] LABS: Glucometer 205 mg/dL (74-106)
[2024-07-23 12:47] LABS: Glucometer 177 mg/dL (74-106)
[2024-07-23 12:51] LABS: Mean Platelet Volume 8.9 fL (9.5-13.5)
--- NOTE | 2024-07-23 13:12 | ECG_ITS ---
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
[2024-07-23 13:25] LABS: Glucometer 172 mg/dL (74-106)
[2024-07-23] MEDS: 0.9 % SODIUM CHLORIDE 1,000 ML 1000 ML IV (13:28)
[2024-07-23] MEDS: 0.9 % SODIUM CHLORIDE 500 ML IV ×2 (13:37→14:50)
[2024-07-23 14:16] LABS: White Blood Count 3.8 10^3/uL (4.0-11.0)
[2024-07-23 14:17] LABS: Hematocrit 32.6 % (42.0-54.0); Hemoglobin 10.8 g/dL (14.0-18.0); Mean Corpuscular Hemoglobin 34.2 pg (25.9-34.0); Mean Corpuscular Volume 103.2 fL (80.0-94.0); Red Blood Count 3.16 10^6/uL (4.70-6.10)
[2024-07-23 14:18] LABS: Mean Corpuscular HGB Conc 33.1 g/dL (29.9-35.2)
[2024-07-23 14:19] LABS: Platelet Count 198 10^3/uL (150-450); Red Cell Distribution Width 16.1 % (11.0-15.0)
[2024-07-23 14:26] LABS: Lymphocytes Absolute Manual 0.72 10^3/uL (1.20-3.80); Monocytes Absolute Manual 0.07 10^3/uL (0.30-0.80); Segmented Neut Absolute Manual 3.04 10^3/uL (1.4-6.5)
[2024-07-23 14:47] LABS: Alanine Aminotransferase 13 U/L (16-63); Albumin Globulin Ratio 0.5; Albumin Level 1.7 g/dL (3.4-5.0); Alkaline Phosphatase 98 U/L (46-116); Anion Gap 15.7; Aspartate Amino Transferase 16 U/L (15-37); BUN Creatinine Ratio 39.8; Bilirubin Total 0.4 mg/dL (0.2-1.0); Calcium 7.4 mg/dL (8.5-10.1); Carbon Dioxide 20.3 mmol/L (21.0-32.0); Chloride 104 mmol/L (98-107); Estimated GFR (African America >60 (>=60 mL/min/1.73m^2); Estimated GFR (Non-African Ame >60 (>=60 mL/min/1.73m^2); Globulin 3.2 g/dL; Glucose 161 mg/dL (74-106); Sodium 136 mmol/L (136-145); Total Protein 4.9 g/dL (6.4-8.2)
[2024-07-23 15:37] LABS: Glucometer 150 mg/dL (74-106)
[2024-07-23 17:04] LABS: Glucometer 133 mg/dL (74-106)
== END 2024-07-23 17:47 | disposition home or self-care (01) ==
PROVIDERS: Emergency Provider Emergency Medicine; PCP Family Medicine
DX: E11.649 Type 2 diabetes mellitus with hypoglycemia without coma (principal); D64.9 Anemia, unspecified; Z79.84 Long term (current) use of oral hypoglycemic drugs; Z90.410 Acquired total absence of pancreas; Z95.5 Presence of coronary angioplasty implant and graft
CPT/HCPCS: 36415; 80053; 82948; 85007; 85027; 86850; 86900; 86901; 93005; 96372; 96374; 99285; J1610